=== PATIENT | female | born 2000 | race Caucasian/White ===

== ENCOUNTER 2022-02-26 07:00 | Emergency (ER) | payer MEDICAID, SELFPAY ==
[2022-02-26 07:20] VITALS: BP 109/70; PULSE 112; RESP 18; TEMP 36.8; O2SAT 99
[2022-02-26 07:29] VITALS: RESP 18; O2SAT 99
--- NOTE | 2022-02-26 07:35 | ED.GENADULT ---
HPI - General Adult General Time Seen by Provider: 07:35 Date Seen: 02/26/22 Chief complaint: Unspecified Complaint, Adult Stated complaint: Bodyaches,fever,right breast pain Time Seen by Provider: 02/26/22 07:20 Source: patient Mode of arrival: ambulatory Limitations: no limitations History of Present Illness HPI narrative: 21-year-old female who comes in today with fever, chills, body aches, and right breast tenderness and pain. This started last night. She took Tylenol about 8 hours ago. No recorded fever at home. Denies cough, does have nausea and some diarrhea, no abdominal pain, no urinary symptoms. She is currently but only at night. She has had mastitis before. Related Data Previous Rx's Medication Instructions Recorded clindamycin HCl 300 mg capsule 300 mg PO TID #21 caps 02/26/22 Allergies Allergy/AdvReac Type Severity Reaction Status Date / Time No Known Drug Allergies Allergy Verified 02/26/22 07:26 Review of Systems Status of ROS: Reports: 10 or more systems reviewed and unremarkable except as noted in History and below PFSH PFS Social History Smoking Status: Never smoker Non-prescribed substance use: denies use service: No Exam Const: Vital Signs, click to edit/add: Vital Signs - 24 hr 02/26/22 07:20 02/26/22 07:29 Temperature 98.2 F Pulse Rate [Right Pulse Oximeter] 112 H Respiratory Rate 18 Respiratory Rate [ Right Breast] 18 Blood Pressure [Le ft Upper Arm] 109/70 Pulse Oximetry 99 Oxygen Delivery Me thod Room Air Documenting provider has reviewed patient's vital signs: yes Common normals: no apparent distress, oriented x3, alert and well nourished HENMT: Common normals: normocephalic, head/scalp atraumatic, external ears normal and external nose normal Head and scalp: normocephalic and atraumatic Nose: external nose normal External ear: external ears normal Eye: Common normals: PERRL and conjunctivae normal Conjunctiva: conjunctiva(e) normal Pupil: PERRL Neck & C-Spine: Common normals: full ROM, no lymphadenopathy and supple Chest: Other: Redness, tenderness, induration and warmth of the superior right breast adjacent to the areola. No palpable fluid collection. Resp: Common normals: normal respiratory effort and clear to auscultation bilaterally Auscultation: clear to auscultation bilaterally Cardio: Common normals: regular rate, regular rhythm and no murmurs Rate: regular rate Rhythm: regular rhythm GI: Common normals: Normal to inspection, nondistended, normoactive bowel sounds present, soft to palpation and non-tender Palpation: soft : Common normals: no CVA tenderness Bladder/kidney exam: no CVA tenderness Back & Pelvis: Common normals: no CVA tenderness and thoracic and lumbar spine normal to inspection Extremity: Common normals: normal to inspection, full ROM and no pedal edema Neuro: Common normals: oriented x3, CN's II-XII intact bilaterally and no focal motor deficits Sensorium/orientation: alert Psych: Common normals: mental status grossly normal Skin: Common normals: no rashes or lesions noted General skin exam: no rashes or lesions noted Course Course Hospital Course: Patient seen and examined, prior records are reviewed. Patient presents with chills, body aches, nausea and right breast tenderness. On exam, there is redness, tenderness, warmth of the right breast consistent with mastitis. Bedside ultrasound performed and no fluid collection is seen, there is no palpable fluid collection or central mass on exam. Patient will be given vancomycin, fluids, and Toradol in the emergency department and discharged with clindamycin. Vital Signs Vital signs: Initial Vital Signs Temperature 98.2 F 02/26/22 07:20 Temperature Source Temporal Artery Scan 02/26/22 07:20 Pulse Rate 112 H 02/26/22 07:20 Pulse Rhythm 02/26/22 07:20 Respiratory Rate 18 02/26/22 07:20 Blood Pressure 109/70 02/26/22 07:20 Blood Pressure Mean 83 02/26/22 07:20 Blood Pressure Position Semi-Fowlers 02/26/22 07:20 Pulse Oximetry 99 02/26/22 07:20 Oxygen Delivery Method 02/26/22 07:20 Vital Signs Temperature 98.2 F 02/26/22 07:20 Pulse Rate 112 H 02/26/22 07:20 Respiratory Rate 18 02/26/22 07:20 Blood Pressure 109/70 02/26/22 07:20 Pulse Oximetry 99 02/26/22 07:20 Oxygen Delivery Method 02/26/22 07:20 Temperature 98.2 F 02/26/22 07:20 Pulse Rate 112 H 02/26/22 07:20 Respiratory Rate 18 02/26/22 07:29 Blood Pressure 109/70 02/26/22 07:20 Pulse Oximetry 99 02/26/22 07:20 Oxygen Delivery Method 02/26/22 07:20 Medical Decision Making Medical Records Medical records reviewed: Yes I reviewed the patient's medical records Lab Data Lab results reviewed: Yes I reviewed the patient's lab results Discharge Plan Discharge Clinical Impression: Mastitis Patient Disposition: Home, Self-Care Condition: Stable Instructions: Mastitis (ED) Additional Instructions: Continue , consider pumping during the day between breast feeds as well. Take antibiotics as prescribed, these are safe for . Take Tylenol and ibuprofen as needed for fever, chills, body ache. Make sure your getting plenty of fluids. Follow-up with your primary care doctor next week Prescriptions: New clindamycin HCl 300 mg capsule 300 mg PO TID Qty: 21 0RF Stand Alone Forms: [employer] Info Instructions
[2022-02-26] MEDS: KETOROLAC 15 MG/ML inj IVP (08:02)
[2022-02-26] MEDS: 0.9 % SODIUM CHLORIDE 1000 ml 1,000 ML IV (08:03)
[2022-02-26 08:29] VITALS: BP 99/63; PULSE 110; RESP 22; O2SAT 99
--- NOTE | 2022-02-26 08:45 | PC.NURSE ---
pt [facility], c/o itching of scalp, no observable redness anywhere, pt asking to talk to , Dr Nelson to room now, order for po benadryl 25mg given, pt refuses at this time and wants to wait, she is instructed to let us know if she would like to take this
[2022-02-26] MEDS: diphenhydrAMINE 25 MG CAPSULE PO (09:15)
--- NOTE | 2022-02-26 09:38 | ED.NURSE ---
vanco stopped at 915, pt unable to tolerate itchy scalp and c/o neck and head swelling, no swelling noted by staff. benadryl already given. dr. davey in to see pt. pt very anxious. sl dc'd intact. ice pack given for feeling of swelling. will continue to monitor pt until she feels comfortable dc'ing.
--- NOTE | 2022-02-26 14:07 | ED.NURSE ---
Entered chart to answer question regarding start date of first dose of antibiotic.
== END 2022-02-26 09:50 | disposition home or self-care (01) ==
LOC: ED 07:49
PROVIDERS: Emergency Provider Family Medicine
DX: N61.0 Mastitis without abscess (principal)
CPT/HCPCS: 96365; 96366; 96375; 99283; 99284; A9270; J1885; J3370; J7030; J7120

== ENCOUNTER 2022-04-27 23:47 | Emergency (ER) | payer MEDICAID, SELFPAY ==
[2022-04-28 00:01] VITALS: BP 130/74; PULSE 95; RESP 18; TEMP 37.7; O2SAT 99
[2022-04-28 00:02] VITALS: BP 130/74; PULSE 99; RESP 18; TEMP 37.7; O2SAT 99; BMI 26.6
[2022-04-28 00:15] VITALS: O2SAT 99
[2022-04-28] MEDS: 0.9 % SODIUM CHLORIDE 1000 ml 1,000 ML IV (00:40)
[2022-04-28 00:47] LABS: Lactate* 0.7 mmol/L (0.5-1.9)
[2022-04-28 00:48] LABS: Basophils Absolute Auto 0.02 K/uL (0.00-0.30); Basophils Percent Auto 0.4 % (0.0-3.0); Eosinophils Absolute Auto 0.17 K/uL (0.00-0.50); Eosinophils Percent Auto 3.6 % (0.0-7.0); Hematocrit 33.8 % (33.0-51.0); Hemoglobin* 11.3 gm/dL (12.0-16.0); Lymphocytes Absolute Auto 1.97 K/uL (0.90-2.90); Lymphocytes Percent Auto 42.1 % (20-44); Mean Corpuscular HGB Conc 33 gm/dL (32-36); Mean Corpuscular Hemoglobin 27 pg (26-34); Mean Corpuscular Volume 80 fL (80-100); Monocytes Percent Auto 10.3 % (0.0-11.0); Neutrophils Absolute Auto 2.04 K/uL (1.7-7.0); Neutrophils Percent Auto 43.6 % (42.0-72.0); Platelet Count* 201 K/uL (140-440); RDW Coefficient of Variation % 12.7 % (11.5-15.5); Red Blood Count 4.21 m/uL (4.00-5.20); White Blood Count* 4.68 K/uL (4.50-11.00)
[2022-04-28 00:50] VITALS: BP 124/77; PULSE 84; RESP 18; O2SAT 99
[2022-04-28 00:51] LABS: Slide Review Reflex No
[2022-04-28 01:05] LABS: Chloride* 103 mmol/L (96-114); Sodium* 136 mmol/L (135-149)
--- OUTSIDE RECORDS SUMMARY | 2022-04-28 01:05 | XMS_ITS | Clinical Summary ---
:2000 Author Organization [facility] Address [address] [place] [address] Care Team Providers Name Role Phone Lita Oseguera Unavailable Unavailable Marija Edgar APRN STRATEGY LEAD Primary Care Provider [phone] Marija Edgar APRN STRATEGY LEAD Unavailable Keisha Dotson MD Unavailable Diana Desir [facility] Unavailable Rain Galaviz PA-C Unavailable [phone] Tavia Wyatt MD Unavailable Unavailable Erica Farrell APRN [facility] Unavailable [phone] Tavia Wyatt MD Unavailable Unavailable Rich Barrett MD Unavailable [phone] Neil Kent MD Unavailable Roney StoryM Unavailable Erica Farrell APRN STRATEGY LEAD Unavailable + Diana Desir [facility] Unavailable Allergies Active Allergy Reactions Severity Noted Date Comments Vancomycin 04/26/2022 Medications Medication Sig Dispensed Refills Start Date End Date Status Vit-Fe Take 1 tablet by 90 tablet 3 06/04/2020 Active Fumarate-FA ( mouth daily MULTIVITAMIN W/IRON) 27-0.8 MG tablet augmented Apply up to twice 150 g 11 08/11/2021 A ctive betamethasone daily as needed dipropionate for psoriasis on (DIPROLENE-AF) 0.05 % thicker areas of external skin. ointmentIndications: Psoriasis fluocinonide (LIDEX) Apply small 60 mL 11 08/11/2021 Active 0.05 % external amount to solutionIndications: psoriasis on the Psoriasis scalp. tacrolimus (PROTOPIC) Apply thin layer 60 g 11 08/11/2021 Active 0.1 % external to psoriasis on ointmentIndications: thinner skin up Psoriasis to twice daily as needed. omeprazole (PRILOSEC) Take 1 capsule 90 capsule 3 09/02/[address] (40 mg) by mouth capsuleIndications: daily Epigastric pain benzonatate (TESSALON) Take 1 capsule 30 capsule 0 10/30/2021 Active 100 MG (100 mg) by mouth capsuleIndications: 3 times daily as Viral URI with cough needed for cough Additional Information Patient not taking. Reported on 02/24/2022 levETIRAcetam (KEPPRA) 500 MG Take 1 tablet (500 90 tablet 3 0 12/03/2021 Active tabletIndications: Convulsions, mg) by mouth daily unspecified convulsion type (H) PARoxetine (PAXIL) 40 MG Take 1 tablet (40 mg) 90 tablet 1 Active tabletIndications: Anxiety by mouth At Bedtime LORazepam (ATIVAN) 0.5 MG Take 1 tablet (0.5 30 tablet 0 01/14 Active tabletIndications: Anxiety mg) by mouth daily as needed for anxiety Active Problems Patient Care Coordination Note Formatting of this note is different fro m the original. EMERGENCY CARE PLAN At each Emergency Department visit, we w ill evaluate this patient to determine if an emergency medical condition is present. Brief History of Condition: Kim Clark has a history of seizures, SVT, depression and anxiety who often presents to the Emergency Department due to chest pain, palpitations, shortness of breath and SV T episodes. As of Fall 2020, she is on a half tab of metoprolol 25mg, as she has had dizziness and low blood pressure with a full tab historically. She has met with Dr. Burrell with [facility] Cardiology and has declined elective ablation in the past. Summary of Care: Palpitations, Shortness of breath, Chest Pain: Ms. Clark often present with vague chest pain complaints and palpitations. Extensive ED work ups have been performed in the past. Outpatient Holter monito rs and cardiology visits have determined that SVT is the most likely etiology of these ongoing symptoms. ED care plan: 1. Chronic Chest Pain & Palpitations: Th e patient has undergone multiple negative ED workups. a. Goal is to reduce CT imaging necessit y to prevent unnecessary radiation exposure. Recommend using PERC score to obviate need for D-Dimer and/or CT. 2. Advanced Imaging Utilization: Frequen t radiographic imaging represents a significant health risk to the patient. Recommend imaging only if acute exam findings, significant laboratory abnormality, or significant concern for new or acute finding. 3. Frequent ED Visits: Encourage follow up with PMD and/or Cardiology. If available in ED consider consultation with ED Db2 Developer. Relevant Medical History (at time Care P fabrizio initiated): Seizures (on 500mg Keppra daily), SVT (on 12.5mg metoprolol daily), Anxiety and Depression Past imaging: CT: 3 in the 12 months prior to initiati on of care plan. MRI: 0 in the 12 months prior to initiat ion of care plan. ED Ultrasound: 8 in the 12 months prior to initiation of care plan. Total [facility] ED visits in 12 months prior to initiation of Care Plan: 11 Total [facility] Hospital Admissions in 12 mon ths prior to initiation of Care Plan: 0 (she has technically had 2 admissions due to related issues with OBGYN) Expected home rescue plan: Metoprolol 12 .5mg PRN PCP: ARLENE Kuhn CNP [facility] edicine - [facility] Specialists: Dr. Zachary Burrell - Cardiology - [facility] Dee Dotson - Neurology - [facility] Epilepsy Care Care Coordination: Has worked with [facility] Worker in past - ARACELIS Parker, Clinical Care Coordination - [facility] ([place], [place] and [place]) - Follow up plan after an ED visit: ARLENE Kuhn CNP 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 Term 01/13/2021 Encounter for triage in patient 12/09/2020 KALYN (generalized anxiety disorder) 09/29/2020 Asthma 06/04/2020 Right ureteral stone 05/27/2020 Overview: Added automatically from request for lebron castellanos [id number] Left ureteral stone 05/27/2020 Overview: Added automatically from request for lebron emanuel [id number] Head ache 02/18/2020 Seizure 05/02/2019 Depressed 05/02/2019 Anxiety 05/02/2019 Tobacco abuse counseling 05/02/2019 Psoriasis 05/02/2019 Encounters Date Type Specialty Care Team Description 04/27/2022 Telephone Family Practice Marija Edgar APRN STRATEGY LEAD 04/26/2022 Emergency EMERGENCY MEDICINE Sanford Dixon n onintractable headache, unspecified headache type; MD Adam Febrile illness Fabián Chen MD 04/26/2022 Travel 04/16/2022 Telephone Cardiology Livan Sharif MD Results (Zio patch monitor ) 04/08/2022 [facility] Cardiology Zcahary Burrell MD Encounter 04/08/2022 Travel 04/05/2022 Hospital Cardiology Zachary Burrell MD SVT (supraven tricular Encounter tachycardia) (H ) 03/26/2022 Hospital Cardiology Zachary Burrell MD Paroxysmal lazo praventricular tachycardia (H); Encounter Palpitations 03/26/2022 [facility] Cardiology Zachary Burrell MD Paroxysmal Encounter supraventricula r tachycardia (H) 03/26/2022 Travel 03/19/2022 PRE VISIT ENT Bassem Vera MD 03/17/2022 Telephone ENT Bassem Vera MD 03/12/2022 Office Visit Podiatry Roney Story of [place], DPM left foot, medi al edge (Primary Dx) 03/12/2022 Travel 03/09/2022 Virtual Visit Pharm Diana Eckert Anxiety ([facility] Dx); T, RPH Moderate major depression (H) 03/08/2022 Travel 02/24/2022 Office Visit Urgent Care Marcelo Ramirez Person under investigation for COVID-19 (Primary Dx); Livan Springer PA-C Chest tight ness 02/24/2022 Telephone Cardiology Zachary Burrell MD Symptoms (Hea rt feels weird) 02/24/2022 Travel 02/02/2022 Virtual Visit Pharm Diana Eckert Anxiety ([facility] Dx); T, RPH Moderate major depression (H) from Last 3 Months Immunizations Name Administration Dates Next Due DTAP (<7y) 11/23/2004, 2000, 2000, 2000 FLU 6-35 months 07/14/2012, 05/25/2011, 05/13/2010 Flu, Unspecified 05/26/2009, 06/21/2007, 07/22/2003, 06/03/2003 HPV Quadrivalent 03/01/2012, 10/27/2011, 08/10/2011 Hep B, Peds or Adolescent 08/07/2001, 03/28/2001, 2000 Hepatitis A Vac Ped/Adol-3 Dose 03/01/2012, 08/10/2011 Hib (PRP-T) 2000, 2000, 2000 Influenza (H1N1) 06/06/2009 Influenza Vaccine IM > 6 months Valent 04/02/2021, 0, 05/02/2019, IIV4 (Alfuria,Fluzone) 05/16/2017, 04/12/2016, 08/12/2014 Influenza Vaccine IM Ages 6-35 Months 04/24/2013 4 Valent (PF) MMR 01/15/2021, 11/23/2004, 08/07/2001 Meningococcal (Menactra??) 08/10/2011 Meningococcal (Menveo??) 05/16/2017 Pneumococcal (PCV 7) 2000, 2000, 2000 Pneumococcal 23 valent 09/22/2021 Poliovirus, inactivated (IPV) 11/23/2004, 03/28/2001, 2000, 2000 TDAP Vaccine (Adacel) 11/11/2020, 08/10/2011 TRIHIBIT (DTAP/HIB, <7y) 08/07/2001 Varicella 03/05/2013, 10/17/2001 Family History Medical History Relation Comments Heart Disease Maternal Grandfather Brain Tumor Sister Relation Status Comments Maternal Grandfather Alive Sister Alive Social History Tobacco Use Types Packs/Day Years Used Date Smoking Tobacco: Former Cigarettes 1 Quit : 12/07/2019 Other Smokeless Tobacco: Never Tobacco Cessation: Counseling Given: Yes Alcohol Use Standard Drinks/Week Comments Not Currently 0 (1 standard drink = 0.6 oz pure alcoho l) Alcohol Habits Answer Date Recorded How often do you have a drink containing alcohol? Never 09/22/2021 How many drinks containing alcohol do you have on a Patient refused 09/22/2021 typical day when you are drinking? How often do you have six or more drinks on one Never 09/22/2021 occasion? Social Isolation Answer Date Recorded In a typical week, how many times do you talk on the Twice a week 09/22/2021 phone with family, friends, or neighbors? How often do you get together with friends or relatives? Twi ce a week 09/22/2021 How often do you attend protestant or quaker services? Never 09/22/2021 Do you belong to any clubs or organizations such as No 09/22/2021 protestant groups, unions, fraternal or athletic groups, or school groups? How often do you attend meetings of the clubs or Never 08/07/2020 organizations you belong to? Are you now , , , , never Nev er 09/22/2021 or living with a partner? Physical Activity Answer Date Recorded On average, how many days per week do you engage in moderate to 1 day 09/22/2021 strenuous exercise (like walking fast, running, jogging, dancing, swimming, biking, or other activities that cause a light or heavy sweat)? On average, how many minutes do you engage in exercise at th is 10 min 09/22/2021 level? Stress Answer Date Recorded Do you feel stress - tense, restless, nervous, or To some ex tent 09/22/2021 anxious, or unable to sleep at night because your mind is troubled all the time - these days? Financial Resource Strain Answer Date Recorded How hard is it for you to pay for the very basics like Not jessica balderas hard 09/22/2021 food, housing, medical care, and heating? Intimate Partner Violence Answer Date Recorded Within the last year, have you been afraid of your partner o r No 08/11/2020 ex-partner? Within the last year, have you been humiliated or emotionall y No 08/11/2020 abused in other ways by your partner or ex-partner? Within the last year, have you been kicked, hit, slapped, or No 08/11/2020 otherwise physically hurt by your partner or ex-partner? Within the last year, have you been raped or forced to have any No 08/11/2020 kind of sexual activity by your partner or ex-partner? Food Insecurity Answer Date Recorded Within the past 12 months, you worried that your food would Never true 09/22/2021 run out before you got money to buy more. Within the past 12 months, the food you bought just didn't N ever true 09/22/2021 last and you didn't have money to get more. Transportation Needs Answer Date Recorded In the past 12 months, has lack of transportation kept you f rom No 09/22/2021 medical appointments or from getting medications? In the past 12 months, has lack of transportation kept you f rom No 09/22/2021 meetings, work, or getting things needed for daily living? Housing Stability Answer Date Recorded In the last 12 months, was there a time when you were not ab le No 09/22/2021 to pay the mortgage or rent on time? In the last 12 months, how many places have you lived? 1 09/22/2021 In the last 12 months, was there a time when you did not hav e a No 09/22/[address] sleep or slept in a halfway (including now)? Education Answer Date Recorded What is the highest level of school you have completed or 12 th grade 08/07/2020 the highest degree you have received? Sex Assigned at Date Recorded Female 03/02/2021 5:45 PM CDT COVID-19 Exposure Response Date Recorded In the last 10 days, have you been in contact with No / Unsu re 04/26/2022 3:26 AM CDT someone who was confirmed or suspected to have Coronavirus/COVID-19? Last Filed Vital Signs Vital Sign Reading Time Taken Comments Blood Pressure 117/73 04/26/2022 8:20 AM CDT Pulse 75 04/26/2022 8:20 AM CDT Temperature 37.6 ??C (99.6 ??F) 04/26/2022 5:20 AM CDT Respiratory Rate 16 04/26/2022 3:29 AM CDT Oxygen Saturation 100% 04/26/2022 8:20 AM CDT Inhaled Oxygen Concentration - - Weight 74.8 kg (165 lb) 04/26/2022 3:29 AM CDT Height 167.6 cm (5' 6) 04/26/2022 3:29 AM CDT Body Mass Index 26.63 04/26/2022 3:29 AM CDT Plan of Treatment Upcoming Encounters Date Type Specialty Care Team Description 04/28/2022 Office Visit Family Practice Anthony Doe PA-C [address] [place], [place] [phone] (Wo rk) 05/03/2022 Office Visit Dermatology Neil Kent M D [address] [place], [place] [phone] (Wo rk) 05/05/2022 Office Visit Optometry Yeny David, OD [address] [place] [id number] (Wo rk) 05/11/2022 Virtual Visit Pharm D Diana Desir , [facility] [address] [place] [address] (Wo rk) 05/14/2022 Office Visit Cardiology Livan Sharif MD [address] [facility] [address] [place], [place] [phone] (Wo rk) 05/31/2022 Office Visit Family Practice Valery Veronica PA-C [address] [place] [address] (Wo rk) Health Maintenance Due Date Last Done Comments ADVANCE CARE PLANNING 2000 COVID-19 Vaccine (#1) 2000 ASTHMA ACTION PLAN 06/24/2021 06/24/2020, 06/24/2020 ASTHMA CONTROL TEST 11/29/2021 06/01/2021, 06/24/2020 INFLUENZA VACCINE (#1) 2022 04/02/2021, 03/27/2020, 05/02/2019, Additional history exists PHQ-9 06/19/2022 12/18/2021, 12/18/2021, 04/02/2021, Additional history exists ANNUAL REVIEW OF HM ORDERS 09/22/2022 09/22/2021, CHLAMYDIA SCREENING 09/22/2022 09/22/2021 Pneumococcal Vaccine: Pediatrics 09/22/2022 09/22/2021, , (0 to 5 Years) and At-Risk 2000, Additiona l history Patients (6 to 64 Years) (2 - PCV) exists YEARLY PREVENTIVE VISIT 09/22/2022 09/22/2021, 06/24/2020, 05/02/2019 PAP 09/22/2024 09/22/2021 DTAP/TDAP/TD IMMUNIZATION (5 - Td 11/11/2030 11/11/2020, , or Tdap) 11/23/2004, Additional history exists HEPATITIS B IMMUNIZATION Completed 08/07/2001, 03/28/2001, 2000 IPV IMMUNIZATION Completed 11/23/2004, 03/28/2001, 2000, Additional history exists HPV IMMUNIZATION Completed 03/01/2012, 10/27/2011, 08/10/2011 MENINGITIS IMMUNIZATION Completed 05/16/2017, 08/10/2011 HEPATITIS C SCREENING Completed 11/05/2019 HIV SCREENING Completed 06/17/2020, 11/05/2019 DEPRESSION ACTION PLAN Completed 04/17/2021, 04/17/2021 Procedures Procedure Name Priority Date/Time Associated Diagnosis Comme nts CTA HEAD NECK W STAT 04/26/2022 8:17 Results f or this CONTRAST AM CDT procedure are i n the results section. CT HEAD W/O CONTRAST STAT 04/26/2022 8:17 Resu lts for this AM CDT procedure are i n the results section. BLOOD CULTURE STAT 04/26/2022 5:15 AM CDT BLOOD CULTURE STAT 04/26/2022 4:33 AM CDT ROUTINE UA WITH STAT 04/26/2022 4:33 Results f or this MICROSCOPIC REFLEX TO AM CDT proced ure are in CULTURE the results section. INFLUENZA A/B & STAT 04/26/2022 4:33 Results f or this SARS-COV2 PCR AM CDT procedure are in MULTIPLEX the results section. ISTAT GASES LACTATE STAT 04/26/2022 4:21 Resul ts for this VENOUS POCT AM CDT procedure are i n the results section. EKG 12-LEAD, TRACING STAT 04/26/2022 3:44 Resu lts for this ONLY AM CDT procedure are i n the results section. EXTRA PURPLE TOP TUBE STAT 04/26/2022 3:31 Res ults for this AM CDT procedure are i n the results section. EXTRA GREEN TOP STAT 04/26/2022 3:31 Results f or this (LITHIUM HEPARIN) AM CDT procedure are in TUBE the results section. EXTRA BLUE TOP TUBE STAT 04/26/2022 3:31 Resul ts for this AM CDT procedure are i n the results section. EXTRA TUBE STAT 04/26/2022 3:31 Results for this AM CDT procedure are i n the results section. HCG QUALITATIVE STAT 04/26/2022 3:31 Results f or this AM CDT procedure are i n the results section. BASIC METABOLIC PANEL STAT 04/26/2022 3:31 Res ults for this AM CDT procedure are i n the results section. CBC WITH PLATELETS STAT 04/26/2022 3:31 Result s for this AM CDT procedure are i n the results section. LEADLESS METAL BONDER Routine 04/05/2022 10:38 SVT (supraventri cular APPLICATION AND AM CDT tachycardia) (H) INTERPRETATION 3 TO 7 DAY LEADLESS METAL BONDER Routine 03/26/2022 8:12 Paroxysmal APPLICATION AND AM CDT supraventricular INTERP 8 TO 14 DAYS tachycardia (H) Palpitations ECHO COMPLETE Routine 03/26/2022 8:02 Paroxysmal Results for this AM CDT supraventricular procedure a re in tachycardia (H) the results section. IN REMOVAL OF NAIL Routine 03/12/2022 11:14 Ingrowing toenail of PLATE SIMPLE SINGLE AM CDT left foot, medial edg e CBC WITH PLATELETS & Routine 02/24/2022 3:50 Chest tightness R esults for this DIFFERENTIAL PM CDT procedure are i n the results section. COVID-19 VIRUS Routine 02/24/2022 3:50 Chest tightness Results for this (CORONAVIRUS) BY PCR PM CDT procedu re are in the results section. CBC WITH PLATELETS Routine 02/24/2022 3:50 Chest tightness Res ults for this AND DIFFERENTIAL PM CDT procedure a re in the results section. TROPONIN I Routine 02/24/2022 3:50 Chest tightness Results f or this PM CDT procedure are i n the results section. BASIC METABOLIC PANEL Routine 02/24/2022 3:50 Chest tightness Results for this PM CDT procedure are i n the results section. D DIMER QUANTITATIVE Routine 02/24/2022 3:50 Chest tightness R esults for this PM CDT procedure are i n the results section. EKG 12-LEAD COMPLETE Routine 02/24/2022 Chest tightness Resu lts for this W/READ - CLINICS procedure a re in the results section. EKG 12-LEAD COMPLETE Routine 02/24/2022 Chest tightness Resu lts for this W/READ - CLINICS procedure a re in the results section. from Last 3 Months Results CTA Head Neck with Contrast (04/26/2022 8:17 AM CDT) Anatomical Region Laterality Modality Head, SUBRAD CT NEURO, SUBRAD CT NEURO, UMP CT NEURO, Computed Tomography RAD CT Specimen (Source) Anatomical Location Collection Method / Collectio n Time Received Time / Laterality Volume Impressions 04/26/2022 11:17 AM CDT IMPRESSION: Patent arteries in the head and neck without vascular cutoff. No evidence of dissection. No an eurysm identified. No significant stenosis. KENYA HERNANDEZ MD SYSTEM ID: ??[id number] Narrative 04/26/2022 11:[address] ANGIOGRAM OF THE HEAD AND NECK WITH CONTRAST April 26, 2022 8:17 AM HISTORY: Sudden onset headache, neck jaquan n. TECHNIQUE: CT angiography with an inject ion of 75mL [id number]-370 IV with scans through the head and neck. Images were transferred to a separate 3-D workstation where multiplanar reform ations and 3-D images were created. Estimates of carotid stenoses a re made relative to the distal internal carotid artery diameters except as noted. Radiation dose for this scan was reduced using automated ex posure control, adjustment of the mA and/or kV according to patient si ze, or iterative reconstruction technique. ?? COMPARISON: None. CT HEAD FINDINGS: No contrast enhancing lesions. Cerebral blood flow is grossly normal. CT ANGIOGRAM HEAD FINDINGS: The major in tracranial arteries including the proximal branches of the anterior ce rebral, middle cerebral, and posterior cerebral arteries appear paten t without vascular cutoff. No aneurysm identified. No significant sten osis. Venous circulation is unremarkable. CT ANGIOGRAM NECK FINDINGS: Normal origi n of the great vessels from the aortic arch. Right carotid artery: The right common a nd internal carotid arteries are patent. No significant stenosis or a therosclerotic disease in the carotid artery. Left carotid artery: The left common and internal carotid arteries are patent. No significant stenosis or ather osclerotic disease in the carotid artery. Vertebral arteries: Vertebral arteries a re patent without evidence of dissection. No significant stenosis. Other findings: Sclerotic lesion in the right aspect of the C4 vertebral body most likely represents a bone island. Procedure Note Kenya Hernandez MD - 04/26/2022 CT ANGIOGRAM OF THE HEAD AND NECK WITH Romana NEWSOME April 26, 2022 8:17 AM HISTORY: Sudden onset headache, neck jaquan n. TECHNIQUE: CT angiography with an inject ion of 75mL Isovue-370 IV with scans through the head and neck. Images were transferred to a separate 3-D workstation where multiplanar reform ations and 3-D images were created. Estimates of carotid stenoses a re made relative to the distal internal carotid artery diameters except as noted. Radiation dose for this scan was reduced using automated ex posure control, adjustment of the mA and/or kV according to patient si ze, or iterative reconstruction technique. COMPARISON: None. CT HEAD FINDINGS: No contrast enhancing lesions. Cerebral blood flow is grossly normal. CT ANGIOGRAM HEAD FINDINGS: The major in tracranial arteries including the proximal branches of the anterior ce rebral, middle cerebral, and posterior cerebral arteries appear paten t without vascular cutoff. No aneurysm identified. No significant sten osis. Venous circulation is unremarkable. CT ANGIOGRAM NECK FINDINGS: Normal origi n of the great vessels from the aortic arch. Right carotid artery: The right common a nd internal carotid arteries are patent. No significant stenosis or a therosclerotic disease in the carotid artery. Left carotid artery: The left common and internal carotid arteries are patent. No significant stenosis or ather osclerotic disease in the carotid artery. Vertebral arteries: Vertebral arteries a re patent without evidence of dissection. No significant stenosis. Other findings: Sclerotic lesion in the right aspect of the C4 vertebral body most likely represents a bone island. IMPRESSION: Patent arteries in the head and neck without vascular cutoff. No evidence of dissection. No an eurysm identified. No significant stenosis. KENYA HERNANDEZ MD SYSTEM ID: [id number] Sanford Dixon MD IMG CT ORDERABLES Head CT w/o contrast (04/26/2022 8:17 AM CDT) Anatomical Region Laterality Modality Head, SUBRAD CT NEURO, SUBRAD CT NEURO, P CT NEURO, Computed Tomography RAD CT Specimen (Source) Anatomical Location Collection Method / Collectio n Time Received Time / Laterality Volume Impressions 04/26/2022 9:28 AM CDT IMPRESSION: No evidence of acute intracranial hemorrhage, mass, or herniation. KENYA HERNANDEZ MD SYSTEM ID: ??[id number] Narrative 04/26/2022 9:[address] SCAN OF THE HEAD WITHOUT CONTRAST ??April 26, 2022 8:17 AM HISTORY: Sudden onset headache. TECHNIQUE: Axial images of the head and coronal reformations without IV contrast material. Radiation dose for this scan was reduced using automated exposure control, adjustment o f the mA and/or kV according to patient size, or iterative reconstruc tion technique. COMPARISON: Head CT 05/11/2018. FINDINGS: There is no evidence of intrac ranial hemorrhage, mass, acute infarct or anomaly. The ventricles are n ormal in size, shape and configuration. The brain parenchyma and subarachnoid spaces are normal. The visualized portions of the sinuses a nd mastoids appear normal. The bony calvarium and bones of the skull ba se appear intact. Procedure Note Kenya Hernandez MD - 04/26/2022 CT SCAN OF THE HEAD WITHOUT CONTRAST Oct kiran 2021 8:17 AM HISTORY: Sudden onset headache. TECHNIQUE: Axial images of the head and coronal reformations without IV contrast material. Radiation dose for this scan was reduced using automated exposure control, adjustment o f the mA and/or kV according to patient size, or iterative reconstruc tion technique. COMPARISON: Head CT 05/11/2018. FINDINGS: There is no evidence of intrac ranial hemorrhage, mass, acute infarct or anomaly. The ventricles are n ormal in size, shape and configuration. The brain parenchyma and subarachnoid spaces are normal. The visualized portions of the sinuses a nd mastoids appear normal. The bony calvarium and bones of the skull ba se appear intact. IMPRESSION: No evidence of acute intracr anial hemorrhage, mass, or herniation. KENYA HERNANDEZ MD SYSTEM ID: [id number] Sanford Dixon MD IMG CT ORDERABLES Symptomatic; Yes; 04/25/2022 Influenza A/B & SARS-CoV2 (COVID-19) Virus PCR Multiplex Nasopharyngeal (04/26/2022 4:33 AM CDT) Analysis Performed At Patho logist Time Signature Influenza A Negative Negative 04/26/2022 LABORATORY PCR 6:47 AM CDT Influenza B Negative Negative 04/26/2022 LABORATORY PCR 6:47 AM CDT RSV PCR Negative Negative 04/26/2022 LABORATORY 6:47 AM CDT SARS CoV2 PCR Negative Negative 04/26/2022 LABORATORY 6:47 AM CDT Comment: NEGATIVE: SARS-CoV-2 (COVID-19) RNA not detected, presumed negative. Specimen Anatomical Location / Collection Method Collection [place] e Received Time (Source) Laterality / Volume Swab NASOPHARYNGEAL Non-blood 04/26/2022 4:33 04/26/2022 4:58 STRUCTURE / Unknown Collection / AM CDT AM CDT Unknown Narrative LABORATORY - 04/26/2022 6:47 AM CDT Testing was performed using the Xpert Xp ress CoV2/Flu/RSV Assay on the [employer] GeneXpert Instrument. This test should b e ordered for the detection of SARS-CoV-2 and influenza viruses in individuals who fidel t clinical and/or epidemiological criteria. Test performance is unknown in asymptoma tic patients. This test is for in vitro diagnostic use under the FDA EUA for lab oratories certified under CLIA to perform high or moderate complexity testing. Thi s test has not been FDA cleared or approved. A negative result does not rule out the presence of PCR inhibitors in the specimen or target RNA in concentration below the li shoshana of detection for the assay. If only one viral target is positive but coinfection with multiple targets is suspected, the sample should be re-tested with another FDA cleared, approved, or authorized test, if coinfection would change clinical manage ment. This test was validated by the [facility]. These laboratorie s are certified under the Clinical Laboratory Improvement Amendments of 1988 (CLIA-88) as qualified to perform high complexity laboratory testing. Sanford Dixon MD LAB - MICRO GENERAL ORDERABL ES Performing Organization Address City/State/ZIP Code Ph[place] [address] [facility] Lab [address] [facility] Lab (1st floor, no room number) (ABNORMAL) UA with Microscopic reflex to Culture (04/26/2022 4:33 AM CDT) [facility] gist Method Time Signature Color Urine Light Colorless, 04/26/2022 LABORATORY Yellow Straw, 5:14 AM CDT Light Yellow, Yellow Appearance Urine Clear Clear 04/26/2022 LABORATOR Y 5:14 AM CDT Glucose Urine Negative Negative 04/26/2022 LABORATORY mg/dL 5:14 AM CDT Bilirubin Urine Negative Negative 04/26/2022 LABORATORY 5:14 AM CDT Ketones Urine Negative Negative 04/26/2022 LABORATORY mg/dL 5:14 AM CDT Specific [place] 1.023 1.003 - 04/26/2022 LABORATOR Y Urine 1.035 5:14 AM CDT Blood Urine Negative Negative 04/26/2022 LABORATORY 5:14 AM CDT pH Urine 7.5 (H) 5.0 - 7.0 04/26/2022 LABORATORY 5:14 AM CDT Protein Albumin Negative Negative 04/26/2022 LABORATORY Urine mg/dL 5:14 AM CDT Urobilinogen Normal Normal, 2.0 04/26/2022 LABORATORY Urine mg/dL 5:14 AM CDT Nitrite Urine Negative Negative 04/26/2022 [facility] LABORATORY 5:14 AM CDT Leukocyte Negative Negative 04/26/2022 LABORATORY Esterase Urine 5:14 AM CDT Bacteria Urine Few (A) None Seen 04/26/2022 [facility] LABORATORY /HPF 5:14 AM CDT Mucus Urine Present (A) None Seen 04/26/2022 [facility] LABORATORY /LPF 5:14 AM CDT RBC Urine <1 <=2 /HPF 04/26/2022 [facility] LABORATORY 5:14 AM CDT WBC Urine <1 <=5 /HPF 04/26/2022 [facility] LABORATORY 5:14 AM CDT Squamous 4 (H) <=1 /HPF 04/26/2022 LABORATORY Epithelials 5:14 AM CDT Urine Specimen Anatomical Collection Method Collection Time Receive d Time (Source) Location / / Volume Laterality Urine MID-STREAM URINE Non-blood 04/26/2022 4:33 AM 04/26 4:58 SPECIMEN / Unknown Collection / CDT AM CDT Unknown Narrative [facility] LABORATORY - 04/26/2022 5:14 AM CDT Urine Culture not indicated Sanford Dixon MD LAB - URINE ORDERABLES Performing Organization Address City/State/ZIP Code [place] [address] Care Lab [address] Lab (1st floor, no room number) (ABNORMAL) iStat Gases (lactate) venous, POCT (04/26/2022 4:21 AM CDT) Analysis Performed At Patho logist Time Signature Lactic Acid POCT 0.7 <=2.0 04/26/2022 RH LABORATOR Y mmol/L 4:36 AM CDT POC Bicarbonate 25 21 - 28 04/26/2022 [facility] LABORATORY Venous POCT mmol/L 4:36 AM CDT POC O2 Sat, Venous 63 (L) 94 - 100 % 04/26/2022 LABORATORY POCT 4:36 AM CDT POC pCO2V Venous 40 40 - 50 mm 04/26/2022 LABORATORY POCT Hg 4:36 AM CDT POC pH Venous POCT 7.40 7.32 - 04/26/2022 [facility] LABORATORY 7.43 4:36 AM CDT POC pO2 Venous POCT 32 25 - 47 mm 04/26/2022 RH LABORATOR Y Hg 4:36 AM CDT POC Specimen Anatomical Collection Method Collection Time Receive d Time (Source) Location / / Volume Laterality Blood, venous BLOOD SPECIMEN / 04/26/2022 4:21 AM 04/10 4:36 Unknown CDT AM CDT Sanford Dixon MD LAB - BEAKER POCT Performing Organization Address City/[facility]/ZIP Code Phon [place] [address] Care Lab [address] Lab (1st floor, no room number) EKG 12-lead, tracing only (04/26/2022 3:44 AM CDT) Component Value Ref Range Test Analysis Performed Pathologis t Method Time At Signature Systolic Blood mmHg RADIOLOGY Pressure RESULTS Diastolic Blood mmHg RADIOLOGY Pressure RESULTS Ventricular Rate 126 BPM RADIOLOGY RESULTS Atrial Rate 126 BPM RADIOLOGY RESULTS IN Interval 166 ms RADIOLOGY RESULTS QRS Duration 82 ms RADIOLOGY RESULTS QT 286 ms RADIOLOGY RESULTS QTc 414 ms RADIOLOGY RESULTS P [place] 61 degrees RADIOLOGY RESULTS R AXIS 54 degrees RADIOLOGY RESULTS T [place] 43 degrees RADIOLOGY RESULTS Interpretation Sinus tachycardia RADIOLO GY ECG T wave abnormality, consider inferior ischemia RESULTS Abnormal ECG When compared with ECG of 18-SEP-2021 13:39, No significant change was found Confirmed by - EMERGENCY MAGDIEL Medina, PHYSICIAN ([id number]), publication editor KEYLA MERIDA ([id number]) on 04/26/2022 6:52:21 AM Specimen Anatomical Collection Method Collection Time Receive d Time (Source) Location / / Volume Laterality 04/26/2022 3:44 AM 6:52 CDT AM CDT Sanford Dixon MD ECG ORDERABLES Performing Organization Address City/State/ZIP Code Phon e Number RADIOLOGY RESULTS Extra Purple Top Tube (04/26/2022 3:31 AM CDT) P athologist Signature Hold Specimen JIC 04/26/2022 RH LABORATORY 4:47 AM CDT Specimen Anatomical Collection Method / Collection Time Recei chelsie Time (Source) Location / Volume Laterality Blood BLOOD SPECIMEN / Venipuncture / 04/26/2022 3:31 2021 3:42 Unknown Unknown AM CDT AM CDT Sanford Dixon MD LAB - BLOOD ORDERABLES Performing Organization Address City/[facility]/[place] [address] Care Lab [address] Lab (1st floor, no room number) Extra Green Top ([place] Heparin) Tube (04/26/2022 3:31 AM CDT) P athologist Signature Hold Specimen JI 04/26/2022 [facility] LABORATORY 4:47 AM CDT Specimen Anatomical Collection Method / Collection Time Recei chelsie Time (Source) Location / Volume Laterality Blood BLOOD SPECIMEN / Venipuncture / 04/26/2022 3:31 2021 3:41 Unknown Unknown AM CDT AM CDT Sanford Dixon MD LAB - BLOOD ORDERABLES Performing Organization Address City/[facility]/[place] [address] Care Lab [address] Lab (1st floor, no room number) Extra Blue Top Tube (04/26/2022 3:31 AM CDT) P athologist Signature Hold Specimen [facility] 04/26/2022 RH LABORATORY 4:47 AM CDT Specimen Anatomical Collection Method / Collection Time Recei chelsie Time (Source) Location / Volume Laterality Blood BLOOD SPECIMEN / Venipuncture / 04/26/2022 3:31 2021 3:41 Unknown Unknown AM CDT AM CDT Sanford Dixon MD LAB - BLOOD ORDERABLES Performing Organization Address City/[facility]/[place] [address] Care Lab [address] Lab (1st floor, no room number) HCG QUALitative (blood) (04/26/2022 3:31 AM CDT) [facility] gist Method Time Signature hCG Serum Negative Negative REINA 04/26/2022 RH LABORATORY Qualitative 4:07 AM CDT Comment: This test is for screening purp oses. Results should be interpreted along with the clinical picture. Confirmation testing is available if warranted by ordering [id number], HCG Quantitative . Specimen Anatomical Collection Method / Collection Time Recei chelsie Time (Source) Location / Volume Laterality Blood BLOOD SPECIMEN / Venipuncture / 04/26/2022 3:31 2021 3:41 Unknown Unknown AM CDT AM CDT Sanford Dixon MD LAB - BLOOD ORDERABLES Performing Organization Address City/State/ZIP Code Phon [place] [phone] Care Lab [address] Lab (1st floor, no room number) (ABNORMAL) Basic metabolic panel (BMP) (04/26/2022 3:31 AM CDT)Only the most recent of2 resultswithin the time period is included. Analysis Performed At Patho logist Time Signature Sodium 139 136 - 145 04/26/2022 LABORATORY mmol/L 4:05 AM CDT Potassium 3.6 3.4 - 5.3 04/26/2022 LABORATORY mmol/L 4:05 AM CDT Chloride 104 98 - 107 04/26/2022 LABORATORY mmol/L 4:05 AM CDT Carbon Dioxide 25 22 - 29 04/26/2022 LABORATORY (CO2) mmol/L 4:05 AM CDT Anion Gap 10 7 - 15 04/26/2022 LABORATORY mmol/L 4:05 AM CDT Urea Nitrogen 8.7 6.0 - 20.0 04/26/2022 LABORATORY mg/dL 4:05 AM CDT Creatinine 0.78 0.51 - 04/26/2022 LABORATORY 0.95 mg/dL 4:05 AM CDT Calcium 9.6 8.6 - 10.0 04/26/2022 LABORATORY mg/dL 4:05 AM CDT Glucose 101 (H) 70 - 99 04/26/2022 LABORATORY mg/dL 4:05 AM CDT GFR Estimate >90 >60 04/26/2022 LABORATORY mL/min/1.7 4:05 AM CDT 3m2 Comment: Effective June 30, 2021 eGF Rcr in adults is calculated using the 2020 CKD-EPI creatinine equation which includ es age and gender (Hermilo et al., NEJM, DOI: 10.1056/CJRGwf3860079) Specimen Anatomical Collection Method / Collection Time Recei chelsie Time (Source) Location / Volume Laterality Blood BLOOD SPECIMEN / Venipuncture / 04/26/2022 3:31 2021 3:41 Unknown Unknown AM CDT AM CDT Sanford iDxon MD LAB - BLOOD ORDERABLES Performing Organization Address City/[facility]/ZIP Code [place] [address] Care Lab [address] Lab (1st floor, no room number) (ABNORMAL) CBC (platelets, no diff) (04/26/2022 3:31 AM CDT) [facility] Method Time Signature WBC Count 7.6 4.0 - 11.0 04/26/2022 RH LABORATORY 10e3/uL 3:56 AM CDT RBC Count 4.91 3.80 - 04/26/2022 RH LABORATORY 5.20 3:56 AM CDT 10e6/uL Hemoglobin 12.7 11.7 - 04/26/2022 RH LABORATORY 15.7 g/dL 3:56 AM CDT Hematocrit 40.9 35.0 - 04/26/2022 RH LABORATORY 47.0 % 3:56 AM CDT MCV 83 78 - 100 04/26/2022 RH LABORATORY fL 3:56 AM CDT MCH 25.9 (L) 26.5 - 04/26/2022 RH LABORATORY 33.0 pg 3:56 AM CDT MCHC 31.1 (L) 31.5 - 04/26/2022 RH LABORATORY 36.5 g/dL 3:56 AM CDT RDW 13.0 10.0 - 04/26/2022 RH LABORATORY 15.0 % 3:56 AM CDT Platelet Count 218 150 - 450 04/26/2022 RH LABORATORY 10e3/uL 3:56 AM CDT Specimen Anatomical Collection Method / Collection Time Recei chelsie Time (Source) Location / Volume Laterality Blood BLOOD SPECIMEN / Venipuncture / 04/26/2022 3:31 2021 3:42 Unknown Unknown AM CDT AM CDT Sanford Dixon MD LAB - BLOOD ORDERABLES Performing Organization Address City/State/ZIP Code [place] [phone] Care Lab [address] [facility] Lab (1st floor, no room number) LEADLESS METAL BONDER APPLICATION AND INTERPRETATION 3 TO 7 DAY (04/05/2022 10:38 AM CDT) Anatomical Region Laterality Modality Other Specimen (Source) Anatomical Location Collection Method / Collectio n Time Received Time / Laterality Volume Narrative This result has an attachment that is no t available. Zachary Burrell MD CV CARDIAC SERVICES ORDERABL ES LEADLESS METAL BONDER APPLICATION AND INTERP 8 TO 14 DAYS (03/26/2022 8:12 AM CDT) Anatomical Region Laterality Modality Other Specimen (Source) Anatomical Location Collection Method / Collectio n Time Received Time / Laterality Volume Narrative This result has an attachment that is no t available. Zachary Burrell MD CV CARDIAC SERVICES ORDERABL ES ECHO COMPLETE (03/26/2022 8:02 AM CDT) P athologist Signature LVEF 55% CARDIOLOGY RESULTS Anatomical Region Laterality Modality Echocardiography Specimen (Source) Anatomical Collection Method Collection Time Re ceived Time Location / / Volume Laterality 03/26/2022 7:39 AM CDT Narrative 03/26/2022 8:36 AM CDT [id number]^ROGER^ZACHARY [facility] Echocardiography Laboratory [address] [place] [address] Name: KIM CLARK : 2000 Study Date: 03/26/2022 07:39 AM Age: 21 yrs Gender: Female Patient Location: [facility] Reason For Study: Paroxysmal supraventri cular tachycardia (H) Ordering Physician: ZACHARY BURRELL Referring Physician: Marija Edgar Performed By: Reanna Fraire BSA: 1.9 m2 Height: 66 in Weight: 170 lb HR: 68 BP: 118/71 mmHg Procedure Complete Echo Adult. Interpretation Summary 1. The left ventricle is normal in struc ture, function and size. The visual ejection fraction is estimated at 55%. 2. The right ventricle is normal in stru cture, function and size. 3. No valve disease. No changes from echo 03/2021. Left Ventricle The left ventricle is normal in structur e, function and size. There is normal left ventricular wall thickness. The vis ual ejection fraction is estimated at 55%. Left ventricular diastolic function is normal. Normal left ventricular wall motion. Right Ventricle The right ventricle is normal in structu re, function and size. Atria Normal left atrial size. Right atrial si ze is normal. There is no atrial shunt seen. Mitral Valve The mitral valve is normal in structure and function. Tricuspid Valve There is trace to mild tricuspid regurgi tation. The right ventricular systolic pressure is approximated at 18.[address] us the right atrial pressure. Aortic Valve The aortic valve is normal in structure and function. Pulmonic Valve The pulmonic valve is normal in structur e and function. Vessels Normal ascending, transverse (arch), and descending aorta. The inferior vena cava was normal in size with preserved r espiratory variability. Pericardium There is no pericardial effusion. Rhythm Sinus rhythm was noted. MMode/2D Measurements & Calculations RVDd: 3.2 cm IVSd: 0.84 cm LVIDd: 5.1 cm LVIDs: 3.2 cm LVPWd: 0.70 cm FS: 36.6 % LV mass(C)d: 132.1 grams LV mass(C)dI: 70.8 grams/m2 Ao root diam: 2.8 cm LA dimension: 3.5 cm asc Aorta Diam: 2.4 cm LA/Ao: 1.2 LVOT diam: 2.0 cm LVOT area: 3.1 cm2 LA Volume (BP): 43.0 ml LA Volume Index (BP): 23.0 ml/m2 RWT: 0.27 Doppler Measurements & Calculations MV E max femi: 89.6 cm/sec MV A max femi: 50.8 cm/sec MV E/A: 1.8 MV dec time: 0.21 sec LV V1 max P.6 mmHg LV V1 max: 118.0 cm/sec LV V1 VTI: 25.4 cm SV(LVOT): 79.8 ml SI(LVOT): 42.7 ml/m2 PA acc time: 0.18 sec TR max femi: 214.0 cm/sec TR max P.3 mmHg E/E' av.8 Lateral E/e': 6.5 Medial E/e': 7.1 Report approved by: Adam Jolly 03/26/2022 08:36 AM Procedure Note Servando Schmidt MD - [id number]^ROGER^[facility] Echocardiography Laboratory [address] [place] [id number] Name: KIM CLARK : 2000 Study Date: 03/26/2022 07:39 AM Age: 21 yrs Gender: Female Patient Location: [facility] Reason For Study: Paroxysmal supraventri cular tachycardia (H) Ordering Physician: ZACHARY BURRELL Referring Physician: Marija Edgar Performed By: Reanna Fraire BSA: 1.9 m2 Height: 66 in Weight: 170 lb HR: 68 BP: 118/71 mmHg Procedure Complete Echo Adult. Interpretation Summary 1. The left ventricle is normal in struc ture, function and size. The visual ejection fraction is estimated at 55%. 2. The right ventricle is normal in stru cture, function and size. 3. No valve disease. No changes from echo 03/2021. Left Ventricle The left ventricle is normal in structur e, function and size. There is normal left ventricular wall thickness. The vis ual ejection fraction is estimated at 55%. Left ventricular diastolic function is normal. Normal left ventricular wall motion. Right Ventricle The right ventricle is normal in structu re, function and size. Atria Normal left atrial size. Right atrial si ze is normal. There is no atrial shunt seen. Mitral Valve The mitral valve is normal in structure and function. Tricuspid Valve There is trace to mild tricuspid regurgi tation. The right ventricular systolic pressure is approximated at 18.[address] us the right atrial pressure. Aortic Valve The aortic valve is normal in structure and function. Pulmonic Valve The pulmonic valve is normal in structur e and function. Vessels Normal ascending, transverse (arch), and descending aorta. The inferior vena cava was normal in size with preserved r espiratory variability. Pericardium There is no pericardial effusion. Rhythm Sinus rhythm was noted. MMode/2D Measurements & Calculations RVDd: 3.2 cm IVSd: 0.84 cm LVIDd: 5.1 cm LVIDs: 3.2 cm LVPWd: 0.70 cm FS: 36.6 % LV mass(C)d: 132.1 grams LV mass(C)dI: 70.8 grams/m2 Ao root diam: 2.8 cm LA dimension: 3.5 cm asc Aorta Diam: 2.4 cm LA/Ao: 1.2 LVOT diam: 2.0 cm LVOT area: 3.1 cm2 LA Volume (BP): 43.0 ml LA Volume Index (BP): 23.0 ml/m2 RWT: 0.27 Doppler Measurements & Calculations MV E max femi: 89.6 cm/sec MV A max femi: 50.8 cm/sec MV E/A: 1.8 MV dec time: 0.21 sec LV V1 max P.6 mmHg LV V1 max: 118.0 cm/sec LV V1 VTI: 25.4 cm SV(LVOT): 79.8 ml SI(LVOT): 42.7 ml/m2 PA acc time: 0.18 sec TR max femi: 214.0 cm/sec TR max P.3 mmHg E/E' av.8 Lateral E/e': 6.5 Medial E/e': 7.1 Report approved by: Adam Jolly 03/26/2022 08:36 AM Zachary Burrell MD CV ECHO ORDERABLES Symptomatic; Unknown COVID-19 Virus (Coronavirus) by PCR Nose (02/24/2022 3:50 PM CDT) Analysis Performed At Patho logist Time Signature SARS CoV2 PCR Negative Negative 02/25/2022 [facility] 1:08 PM CDT LABORATORY Comment: NEGATIVE: SARS-CoV-2 (COVID-19) RNA not detected, presumed negative. Specimen Anatomical Collection Method Collection Time Receive d Time (Source) Location / / Volume Laterality Swab NASAL STRUCTURE / Non-blood 02/24/2022 3:50 PM 02/08 5:21 Unknown Collection / CDT PM CDT Unknown Narrative [facility] LABORATORY - 02/25/2022 1:08 PM C DT Testing was performed using the Xpert Xpress SARS-CoV-2 Assay on the [employer] Systems. A dditional information about this Emergency Use Authorization (EUA) a ssay can be found via the Lab Guide. This test should be ordered for t he detection of SARS-CoV-2 in individuals who meet SARS-CoV-2 clinical and/or epidemiological criteria. Test performance is unknown in asymptomatic patients. This test is for in vitro diagnostic use unde r the FDA EUA for laboratories certified under CLIA to per form high complexity testing. This test has not been FDA cleared or ap proved. A negative result does not rule out the presence of PCR in hibitors in the specimen or target RNA in concentration below the li [place] of detection for the assay. The possibility of a false negati ve should be considered if the patient's recent exposure or clinica l presentation suggests COVID-19. This test was validated by the [facility] Diagnostic Laboratory. This lab oratory is certified under the Clinical Laboratory Improvement Amen dments of 1987 (CLIA-88) as qualified to perform high complexity lab oratory testing. Marcelo Ramirez PA-C LAB - MICRO GENERAL DONYA HERRERA Performing Organization Address City/State/ZIP Code Phon e Number [facility] LABORATORY [facility] [place] [address] Diag. Lab [address] [facility], Room [address]297 (ABNORMAL) CBC with platelets and differential (02/24/2022 3:50 PM CDT) [facility] Method Time Signature WBC Count 4.4 4.0 - 02/24/2022 [facility] 11.0 4:00 PM CDT 10e3/uL RBC Count 5.04 3.80 - 02/24/2022 [facility] 5.20 4:00 PM CDT 10e6/uL Hemoglobin 13.1 11.7 - 02/24/2022 [facility] LAB[facility]ATORY 15.7 g/dL 4:00 PM CDT Hematocrit 40.7 35.0 - 02/24/2022 [facility] LAB[facility]ORY 47.0 % 4:00 PM CDT MCV 81 78 - 100 02/24/2022 [facility] fL 4:00 PM CDT MCH 26.0 (L) 26.5 - 02/24/2022 [facility] 33.0 pg 4:00 PM CDT MCHC 32.2 31.5 - 02/24/2022 [facility] LAB[facility] 36.5 g/dL 4:00 PM CDT RDW 13.5 10.0 - 02/24/2022 [facility] 15.0 % 4:00 PM CDT Platelet Count 208 150 - 450 02/24/2022 [facility] LAB[facility]ATORY 10e3/uL 4:00 PM CDT % Neutrophils 55 % 02/24/2022 [facility] LAB[facility] 4:00 PM CDT % Lymphocytes 29 % 02/24/2022 [facility] 4:00 PM CDT % Monocytes 9 % 02/24/2022 [facility] LAB[facility] 4:00 PM CDT % Eosinophils 8 % 02/24/2022 [facility] LAB[facility]ORY 4:00 PM CDT % Basophils 1 % 02/24/2022 [facility] LAB[facility]ATORY 4:00 PM CDT Absolute 2.4 1.6 - 8.3 02/24/2022 [facility] LAB[facility]ATORY Neutrophils 10e3/uL 4:00 PM CDT Absolute 1.3 0.8 - 5.3 02/24/2022 [facility] LAB[facility]ATORY Lymphocytes 10e3/uL 4:00 PM CDT Absolute 0.4 0.0 - 1.3 02/24/2022 [facility] LAB[facility]ATORY Monocytes 10e3/uL 4:00 PM CDT Absolute 0.3 0.0 - 0.7 02/24/2022 [facility] LABORATORY Eosinophils 10e3/uL 4:00 PM CDT Absolute 0.0 0.0 - 0.2 02/24/2022 [facility] LAB[facility]ATORY Basophils 10e3/uL 4:00 PM CDT Specimen Anatomical Collection Method / Collection Time Recei chelsie Time (Source) Location / Volume Laterality Blood VENOUS BLOOD / Venipuncture / 02/24/2022 3:50 02/25/20 22 3:50 Unknown Unknown PM CDT PM CDT Marcelo Ramirez PA-C LAB - BLOOD ORDERABLES Performing Organization Address City/[facility] Phon e Number OX LABORATORY [place], [place] [phone] [facility] [phone] [place] [address] Lab (no room number, 1st floor of [facility]) OX LABORATORY [place], [place] [phone] [facility] [address] Lab (no room number, 1st floor of [facility]) Troponin I (02/24/2022 3:50 PM CDT) athologist Signature Troponin I High <3 <54 ng/L 02/24/2022 [facility] LAB[facility]AT[facility] Sensitivity 4:18 PM CDT Comment: This Troponin-I result was obta ined using a Siemens Dimension [place] High Sensitivity Troponin-I assay (TNIH). Eff ective 06/02/21, nine labs/sites in the [facility] switched from a Siemens [place] Contemporary Troponin I assay (CTNI) to a Siemens [place] High-Sensitivity Troponi n I assay (TNIH). Specimen Anatomical Collection Method / Collection Time Recei chelsie Time (Source) Location / Volume Laterality Blood VENOUS BLOOD / Venipuncture / 02/24/2022 3:50 02/25/20 22 3:50 Unknown Unknown PM CDT PM CDT Marcelo Ramirez PA-C LAB - BLOOD ORDERABLES Performing Organization Address City/[facility] Phon e Number OX LABORATORY [place], [place] [phone] [facility] [phone] [place] [address] Lab (no room number, 1st floor of [facility]) OX LABORATORY [place], [place] [phone] [facility] [address] Lab (no room number, 1st floor of clinic) D dimer, quantitative (02/24/2022 3:50 PM CDT) Analysis Performed At Patho logist Time Signature D-Dimer 0.28 0.00 - 02/24/2022 [facility] LAB[facility]ATORY Quantitative 0.50 ug/mL 4:16 PM CDT FEU Specimen Anatomical Collection Method / Collection Time Recei chelsie Time (Source) Location / Volume Laterality Blood VENOUS BLOOD / Venipuncture / 02/24/2022 3:50 02/25/20 3:50 Unknown Unknown PM CDT PM CDT Narrative [facility] LAB[facility]ATORY - 02/24/2022 4:16 PM CDT This D-dimer assay is intended for use i n conjunction with a clinical pretest probability assessment model to exclude pulmonary embolism (PE) and deep venous thrombosis (DVT) in outpatients suspecte d of PE or DVT. The cut-off value is 0.50 ug/mL FEU. Marcelo Ramirez PA-C LAB - BLOOD ORDERABLES Performing Organization Address City/State/ZIP Code Phon e Number OX LABORATORY [place], [place] [phone] [facility] [address] [place] [address] Lab (no room number, 1st floor of clinic) [facility] [place], [place] [phone] [facility] [address] Lab (no room number, 1st floor of clinic) EKG 12-lead complete w/read - Clinics (02/24/2022)Only the most recent of2 resultswithin the time period is included. Narrative This result has an attachment that is no t available. Marcelo Ramirez PA-C ECG ORDERABLES from Last 3 Months Insurance Payer Benefit Plan / Subscriber ID Effective Dates Phone Addre ss Type Group [facility] [id number] 2021-Present [phone] [address] [place] [address] [facility] [id number] 2021-Present [phone] [address] [place] [address] [phone] (Home) [place] [address] Kim Clark Personal/Family Self 2000 [phone] (Home) [place] [address] Kim Clark Worker's Self 2000 [phone] Compensation 9 (Home) [place] [address] Kim Clark Behavioral Self 2000 [phone] (Home) [place] [address] Kim Clark Worker's Self 2000 [phone] Compensation 4 (Home) [facility], [phone] [place] [address] 8 (Work) Kim Clark Medication Therapy Self [address] (Home) [place] [address] Advance Directives For more information, please contact: [phone] Latest Code Status on File Code Status Date Activated Date Inactivated Comments Full Code 01/14/2021 7:36 AM 01/15/2021 6:05 PM All basic and advanced life-sustaining interventions ar e performed as appropriate Question Answer Comments Code status determined by: Discussion with patient/ legal de cision maker Care Teams Toll Bridge Attendant Relationship Specialty Start Date End Date Marija Edgar, PCP - General Nurse Practitioner 04/30/20 [employer] [address] [place] [address] Lita Oseguera Personal Advocate & 02/28/20 Liaison (PAL) Marija Edgar, Assigned PCP 06/08/20 [employer] [address] [place] [address] Mauri, Assigned Neuroscience 06/04/20 MD Keisha Provider [address] [facility], [place] [id number] Diana Desir, Pharmacist Pharmacist 04/17/21 [facility] [address] [place], [place] [address] Rain Galaviz Physician Snowmaker Dermatology 04/28/21 ROVERTO Paredes [address] [place] [address] [address] [place], [place] [id number] Tavia Wyatt MD Dermatology 07/14/21 Erica Ochoa Nurse Practitioner Cardiovascular Disease 09/09/21 ARLENE Guidyr [employer] [address] [facility] [address] [place], [place] [address] Tavia Wyatt, Assigned Surgical 11/29/21 MD Provider Rich Barrett Physician Ophthalmology 01/21/22 Gerson Reyes MD [address] [facility] [address] [place] [address] Neil Kent MD MD Dermatology 02/24/22 [address] [place] [address] Roney Story, Assigned Musculoskeletal 03/20/22 DPM Provider [address] [facility] [address] [place], [place] [phone] Erica Farrell Assigned Heart and 04/03/22 ARLENE Guidyr [employer]AD Vascular Provider [address] [place] [address] Diana Desir, Assigned MTM Pharmacist 04/07/22 [facility] [address] [place], [place] [id number]
--- OUTSIDE RECORDS SUMMARY | 2022-04-28 01:05 | XMS_ITS | Encounter Summary ---
:2000 Author Organization [facility] Address [address] [place] [address] Care Team Providers Name Role Phone Lita Oseguera Unavailable Unavailable Marija Edgar APRN ACADEMIC SPECIALIST Primary Care Provider [phone] Marija Edgar APRN ACADEMIC SPECIALIST Unavailable Keisha Dotson MD Unavailable Diana Desir [facility] Unavailable Rain Galaviz PA-C Unavailable [phone] Tavia Wyatt MD Unavailable Unavailable Erica Farrell APRN ACADEMIC SPECIALIST Unavailable [phone] Tavia Wyatt MD Unavailable Unavailable Rich Barrett MD Unavailable [phone] Neil Kent MD Unavailable Roney Story DPM Unavailable Erica Farrell APRN ACADEMIC SPECIALIST Unavailable + Diana Desir [facility] Unavailable Reason for Visit Reason Comments Headache Encounter Details Date Type Department Care Team Description 04/26/2022 [facility] Sanford Dixon MD EMERGENCY PHYSICIAN [facility] [address] [place], [place] [address] Acute nonintractable headache, unspecifi ed headache type; [facility] Fabián Chang MD EM[facility]Y PHYSICIANS [facility] [address] [place] [address] Febrile illness Dept [address] [place] [address] Social History Tobacco Use Types Packs/Day Years Used Date Smoking Tobacco: Former Cigarettes 1 Quit : 12/07/2019 Other Smokeless Tobacco: Never Alcohol Use Standard Drinks/Week Comments Not Currently [...] week 09/22/2021 How often do you attend episcopalian or sabianist services? Never 09/22/2021 Do you belong to any clubs or organizations such as No 09/22/2021 episcopalian groups, unions, fraternal or athletic groups, or [...] place to sleep or slept in a [facility] (including now)? Education Answer Date Recorded What [...] was confirmed or suspected to have Coronavirus/COVID-19? documented as of this encounter Last Filed Vital Signs Vital Sign Reading [...] Mass Index 26.63 04/26/2022 3:29 AM CDT documented in this encounter Discharge Instructions AttachmentsThe following attachments cannot be sent through Care Everywhere. Febrile Illness, Uncertain Cause (Adult) (Canadian)Headaches, Self-Care for (Canadian)documented in this encounter Medications at Time of Discharge Medication Sig Dispensed Refills Start Date End Date augmented betamethasone Apply up to twice 150 g 08/11 dipropionate daily as needed for (DIPROLENE-AF) 0.05 % psoriasis on thicker external areas of skin. ointmentIndications: Psoriasis benzonatate (TESSALON) Take 1 capsule (100 30 capsule 0 10/10 100 MG mg) by mouth 3 times capsuleIndications: Viral daily as needed for URI with cough cough fluocinonide (LIDEX) 0.05 Apply small amount to 60 mL 08/11/2021 % external psoriasis on the solutionIndications: scalp. Psoriasis levETIRAcetam (KEPPRA) Take 1 tablet (500 90 tablet 3 12/03 500 MG tabletIndications: mg) by mouth daily Convulsions, unspecified convulsion type (H) LORazepam (ATIVAN) 0.5 MG Take 1 tablet (0.5 30 tablet 0 tabletIndications: mg) by mouth daily as Anxiety needed for anxiety omeprazole (PRILOSEC) 40 Take 1 capsule ([address] capsuleIndications: mg) by mouth daily Epigastric pain PARoxetine (PAXIL) 40 MG Take 1 tablet (40 mg) 90 tablet 1 01/04/2022 tabletIndications: by mouth At Bedtime Anxiety Vit-Fe Take 1 tablet by 90 tablet 3 06/04/2020 Fumarate-FA ( mouth daily MULTIVITAMIN W/IRON) 27-0.8 MG tablet tacrolimus (PROTOPIC) 0.1 Apply thin layer to 60 g 11 0 08/11/2021 % external psoriasis on thinner ointmentIndications: skin up to twice Psoriasis daily as needed. documented as of this encounter ED Notes Misty Parry RN - 04/26/2022 3:27 AM CDT Migraine since 99. No hx of migraines. Temp 102.1 and HR 160 at home - hx of SVT requiring ablation. Sanford Dixon MD - 04/26/2022 3:25 AM CDT History Chief Complaint: Headache The history is provided by the patient. Kim Johnson is a 22 year old female with history of migraines, KALYN, and SVT who presents with a worsening headache since 1300 this afternoon. Headache started suddenly and has gradually been worsening since that time. She was having some neck pain the past few days before the headache started. She has history of chronic neck pain and migraines but this feels somewhat different. She tried taking Tylenol and ibuprofen at 1300 for pain management with no relief. Also, she has had chills and a fever.She recorded a temperature of 102.1 degrees at home. When she tried relaxing her head, she experienced a fast heart beat. Other symptoms mentioned include diffuse myalgias. She does not have a history of IV drug use. She was recently exposed to her daughter who has an ear infection. She denies rhinorrhea, cough, sore throat, vomiting, diarrhea, rashes or tick bites, abdominal pain, or neck stiffness Review of Systems Constitutional: Positive for chills and fever. HENT: Negative for rhinorrhea and sore throat. Respiratory: Negative for cough. Cardiovascular: Positive for palpitations. Gastrointestinal: Negative for abdominal pain, diarrhea and vomiting. Musculoskeletal: Positive for myalgias (Diffuse). Negative for neck stiffness. Skin: Negative for rash and wound. Neurological: Positive for headaches. All other systems reviewed and are negative. 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 Paroxysmal supraventricular tachycardia Past Surgical History: Unspecified kidney surgery Family History: Sister - brain tumor Social History: The patient presents to the ED alone via private vehicle PCP: Marija Edgar Physical Exam Patient Vitals for the past 24 hrs: BP Temp Temp src Pulse Resp SpO2 Height Weight 04/26/22 0545 106/60 -- -- 95 -- -- -- -- 04/26/22 0530 103/54 -- -- 87 -- -- -- -- 04/26/22 0520 -- 99.6 ??F (37.6 ??C) Oral -- -- -- -- -- 04/26/22 0515 115/73 -- -- 105 -- -- -- -- 04/26/22 0500 119/77 -- -- 92 -- -- -- -- 04/26/22 0445 122/75 -- -- 96 -- -- -- -- 04/26/22 0436 132/76 -- -- 103 -- -- -- -- 04/26/22 0415 135/85 -- -- (!) 122 -- -- -- -- 04/26/22 0400 125/84 -- -- 119 -- -- -- -- 04/26/22 0356 -- (!) 100.5 ??F (38.1 ??C) Oral (!) 140 -- -- -- -- 04/26/22 0345 134/81 -- -- (!) 125 -- -- -- -- 04/26/22 0329 (!) 158/70 99.9 ??F (37.7 ??C) Temporal (!) 135 16 97 % 1.676 m (5' 6) 74.8 kg (165 lb) Physical Exam Vitals and nursing note reviewed. Constitutional: General: She is not in acute distress. Appearance: She is not ill-appearing. HENT: Head: Normocephalic and atraumatic. Right Ear: External ear normal. Left Ear: External ear normal. Nose: Nose normal. Mouth/Throat: Mouth: Mucous membranes are moist. Eyes: Extraocular Movements: Extraocular movements intact. Conjunctiva/sclera: Conjunctivae normal. Pupils: Pupils are equal, round, and reactive to light. Cardiovascular: Rate and Rhythm: Regular rhythm. Tachycardia present. Heart sounds: No murmur heard. Pulmonary: Effort: Pulmonary effort is normal. No respiratory distress. Breath sounds: Normal breath sounds. No wheezing, rhonchi or rales. Abdominal: General: Abdomen is flat. Bowel sounds are normal. There is no distension. Palpations: Abdomen is soft. Tenderness: There is no abdominal tenderness. There is no guarding or rebound. Musculoskeletal: General: No deformity or signs of injury. Cervical back: Full passive range of motion without pain, normal range of motion and neck supple. No rigidity. No pain with movement. Skin: General: Skin is warm and dry. Findings: No rash. Neurological: Mental Status: She is alert and oriented to person, place, and time. GCS: GCS eye subscore is 4. GCS verbal subscore is 5. GCS motor subscore is 6. Cranial Nerves: No cranial nerve deficit. Sensory: Sensation is intact. Motor: No weakness. Psychiatric: Mood and Affect: Mood is anxious. Behavior: Behavior normal. Emergency Department Course ECG: ECG taken at 0344, ECG read at 0348 Sinus tachycardia T wave abnormality, consider inferior infarct Abnormal ECG Rate 126 bpm. ID interval 166 ms. QRS duration 82 ms. QT/QTc 286/414 ms. P-R-T axes 61 54 43. Imaging: Head CT w/o contrast (Results Pending) CTA Head Neck with Contrast (Results Pending) Report per radiology Laboratory: Labs Ordered and Resulted from Time of ED Arrival to Time of ED Departure CBC WITH PLATELETS - Abnormal Result Value WBC Count 7.6 RBC Count 4.91 Hemoglobin 12.7 Hematocrit 40.9 MCV 83 MCH 25.9 (*) MCHC 31.1 (*) RDW 13.0 Platelet Count 218 BASIC METABOLIC PANEL - Abnormal Sodium 139 Potassium 3.6 Chloride 104 Carbon Dioxide (CO2) 25 Anion Gap 10 Urea Nitrogen 8.7 Creatinine 0.78 Calcium 9.6 Glucose 101 (*) GFR Estimate >90 ROUTINE UA WITH MICROSCOPIC REFLEX TO CULTURE - Abnormal Color Urine Light Yellow Appearance Urine Clear Glucose Urine Negative Bilirubin Urine Negative Ketones Urine Negative Specific [place] Urine 1.023 Blood Urine Negative pH Urine 7.5 (*) Protein Albumin Urine Negative Urobilinogen Urine Normal Nitrite Urine Negative Leukocyte Esterase Urine Negative Bacteria Urine Few (*) Mucus Urine Present (*) RBC Urine <1 WBC Urine <1 Squamous Epithelials Urine 4 (*) ISTAT GASES LACTATE VENOUS POCT - Abnormal Lactic Acid POCT 0.7 Bicarbonate Venous POCT 25 O2 Sat, Venous POCT 63 (*) pCO2V Venous POCT 40 pH Venous POCT 7.40 pO2 Venous POCT 32 HCG QUALITATIVE - Normal hCG Serum Qualitative Negative INFLUENZA A/B & SARS-COV2 PCR MULTIPLEX - Normal Influenza A PCR Negative Influenza B PCR Negative RSV PCR Negative SARS CoV2 PCR Negative BLOOD CULTURE BLOOD CULTURE Emergency Department Course: Reviewed: I reviewed nursing notes, vitals and past medical history Assessments: 0 I obtained history and examined the patient as noted above. 719 I rechecked the patient and explained findings. . Interventions: Medications ketorolac (TORADOL) injection 10 mg (has no administration in time range) 0.9% sodium chloride BOLUS (0 mLs Intravenous Stopped 04/26/22554) Followed by 0.9% sodium chloride BOLUS (0 mLs Intravenous Stopped 04/26/22554) metoclopramide (REGLAN) injection 10 mg (10 mg Intravenous Given 04/26/22423) diphenhydrAMINE (BENADRYL) injection 25 mg (25 mg Intravenous Given 04/26/22423) acetaminophen (TYLENOL) tablet 1,000 mg (1,000 mg Oral Given 04/26/22422) Disposition: Care of the patient was transferred to my colleague Dr. Chen pending CT/CTA results. Impression & Plan Medical Decision Makin-year-old female with headache and fever. Has history of migraines and chronic neck pain so suspect this is etiology of her headache. However patient does note that it was a fairly sudden onset. Fairly low suspicion for subarachnoid hemorrhage or vertebral dissection. Headache was not worse at onset, as it has gradually been worsening since it started. She has no neurologic deficits. She also developed a fever this afternoon. Suspect that she has a viral illness. Do not suspect meningitis as she has no neck stiffness on her exam. Her lab work is all unremarkable. She was given Reglan, Benadryl, acetaminophen, IV fluids with near resolution of her headache. She was also concerned about her heart rate and palpitations given her history of SVT. However her EKG showed that she was in sinus tachycardia. Her heart rate has normalized down to the 90s with IV fluids and treatment of her symptoms. I rechecked the patient and she remains concerned that this headache is not similar to her usual migraines. Therefore we will check neuroimaging to rule out subarachnoid hemorrhage, aneurysm, dissection. I have low suspicion for these. Assuming her CTs are negative we will plan for discharge home with close primary care follow-up. I did discuss return precautions with her. Patient will be endorsed to Dr. Chen at end of shift and he will follow-up on CT imaging. Diagnosis: ICD-10-CM 1. Acute nonintractable headache, unspecified headache type R51.9 2. Febrile illness R50.9 Discharge Medications: New Prescriptions No medications on file Scribe Disclosure: I, Good Jacques, am serving as a scribe at 3:36 AM on 04/26/2022 to document services personally performed by Sanford Dixon MD based on my observations and the provider's statements to me. Sanford Dixon MD 04/26/22 0741 Fabián Chen MD - 04/26/2022 3:25 AM CDT Patient was signed out to me by Dr. Dixon. Please see his note for further details. Plan at time of signout was follow-up on CT head and CTA head and neck results and discharge home if those are negative. Those results are unremarkable. Discussed with the patient she was feels comfortable with discha rge home at this time. She was in no distress at time of discharge. Fabián Chen MD 04/26/22 0911 documented in this encounter Plan of Treatment Upcoming Encounters Date Type Specialty Care Team Description 04/28/2022 Office Visit [facility] Anthony Doe, PAUcheC [address] [place], [place] [phone] (Wo rk) 05/03/2022 Office Visit Dermatology Neil Kent M D [address] [place], [place] [phone] (Wo rk) 05/05/2022 Office Visit Optometry Yeny David, OD [address] [place] [phone] (Wo rk) 05/11/2022 Virtual Visit Pharm D Diana Desir , [facility] [address] [place], [place] [address] (Wo rk) 05/14/2022 Office Visit Cardiology Livan Sharif MD [address] [facility] [address] [place], [place] [phone] (Wo rk) 05/31/2022 Office Visit [facility] Valery Veronica PA-C [address] [place], [place] [phone] (Wo rk) Pending Results Name Type Priority Associated Diagnoses Date/Ti me Blood Culture Line, Microbiology STAT 04/26/20 4:33 AM CDT venous Blood Culture Arm, Microbiology STAT 5:15 AM CDT Right documented as of this encounter Procedures Procedure Name Priority Date/Time Associated Comments Diagnosis CTA HEAD NECK W STAT 04/26/2022 8:17 AM Result s for this CONTRAST CDT procedure are i n the results section. CT HEAD W/O CONTRAST STAT 04/26/2022 8:17 AM R esults for this CDT procedure are i n the results section. BLOOD CULTURE STAT 04/26/2022 5:15 AM CDT INFLUENZA A/B & STAT 04/26/2022 4:33 AM Result s for this SARS-COV2 PCR CDT procedure are in MULTIPLEX the results section. ROUTINE UA WITH STAT 04/26/2022 4:33 AM Result s for this MICROSCOPIC REFLEX TO CDT proced ure are in CULTURE the results section. BLOOD CULTURE STAT 04/26/2022 4:33 AM CDT ISTAT GASES LACTATE STAT 04/26/2022 4:21 AM Re sults for this VENOUS POCT CDT procedure are i n the results section. EKG 12-LEAD, TRACING STAT 04/26/2022 3:44 AM R esults for this ONLY CDT procedure are i n the results section. EXTRA TUBE STAT 04/26/2022 3:31 AM Results f or this CDT procedure are i n the results section. EXTRA PURPLE TOP TUBE STAT 04/26/2022 3:31 AM Results for this CDT procedure are i n the results section. EXTRA GREEN TOP STAT 04/26/2022 3:31 AM Result s for this (LITHIUM HEPARIN) CDT procedure are in TUBE the results section. EXTRA BLUE TOP TUBE STAT 04/26/2022 3:31 AM Re sults for this CDT procedure are i n the results section. HCG QUALITATIVE STAT 04/26/2022 3:31 AM Result s for this CDT procedure are i n the results section. BASIC METABOLIC PANEL STAT 04/26/2022 3:31 AM Results for this CDT procedure are i n the results section. CBC WITH PLATELETS STAT 04/26/2022 3:31 AM Res ults for this CDT procedure are i n the results section. documented in this encounter Results CTA Head Neck with Contrast (04/26/2022 [...] significant stenosis. KENYA HERNANDEZ MD SYSTEM ID: ??[id number] Narrative 04/26/2022 11:[address] ANGIOGRAM [...] ANGIOGRAM OF THE HEAD AND NECK WITH C ONTRAST April 26, 2022 8:17 AM HISTORY: Sudden [...] significant stenosis. KENYA HERNANDEZ MD SYSTEM ID: [id number] Sanford Dixon MD IMG CT ORDERABLES Head [...] or herniation. KENYA HERNANDEZ MD SYSTEM ID: ??[id number] Narrative 04/26/2022 9:[address] SCAN [...] or herniation. KENYA HERNANDEZ MD SYSTEM ID: [id number] Sanford Dixon MD IMG CT ORDERABLES (ABNORMAL) UA with Microscopic reflex to Culture (04/26/2022 4:33 AM CDT) Patholo gist Method Time Signature Color Urine Light Colorless, 04/26/2022 LABORATORY Yellow Straw, 5:14 AM CDT Light Yellow, Yellow Appearance Urine Clear Clear 04/26/2022 RH LABORATOR Y 5:14 AM CDT Glucose Urine Negative Negative 04/26/2022 LABORATORY mg/dL 5:14 AM CDT Bilirubin Urine Negative Negative 04/26/2022 LABORATORY 5:14 AM CDT Ketones Urine Negative Negative 04/26/2022 LABORATORY mg/dL 5:14 AM CDT Specific [place] 1.023 1.003 - 04/26/2022 RH LABORATOR Y Urine 1.035 5:14 AM CDT Blood Urine Negative Negative 04/26/2022 LABORATORY 5:14 AM CDT pH Urine 7.5 (H) 5.0 - 7.0 04/26/2022 RH LABORATORY 5:14 AM CDT Protein Albumin Negative [...] Mucus Urine Present (A) None Seen 04/26/2022 LABORATORY /LPF 5:14 AM CDT RBC Urine [...] Collection / CDT AM CDT Unknown Narrative LABORATORY - 04/26/2022 5:14 AM CDT Urine Culture not indicated Sanford Dixon MD LAB - URINE ORDERABLES Performing Organization Address City/State/ZIP Code [place] [address] Care [facility] [address] Lab (1st floor, no room number) Symptomatic; Yes; 04/25/2022 Influenza A/B & SARS-CoV2 [...] Xpert Xp ress CoV2/Flu/RSV Assay on the FluxDrive GeneXpert Instrument. This test should b e [...] ment. This test [facility]. These laboratorie s are certified under the Clinical Laboratory Improvement Amendments of 1988 (CLIA-88) as qualified to perform high complexity laboratory testing. Sanford Dixon MD LAB - MICRO GENERAL ORDERABL ES Performing Organization Address City/State/ZIP [place] [address] Care Lab [address] [facility] Lab (1st floor, no room number) (ABNORMAL) iStat Gases (lactate) venous, POCT (04/26/2022 4:21 AM CDT) Analysis Performed At Patho logist Time Signature Lactic Acid POCT 0.7 <=2.0 04/26/2022 LABORATOR Y mmol/L 4:36 AM CDT POC Bicarbonate 25 21 - 28 04/26/2022 LABORATORY Venous POCT mmol/L 4:36 AM CDT POC O2 Sat, Venous 63 (L) 94 - 100 % 04/26/2022 LABORATORY POCT 4:36 AM CDT POC pCO2V Venous 40 40 - 50 mm 04/26/2022 LABORATORY POCT Hg 4:36 AM CDT POC pH Venous POCT 7.40 7.32 - 04/26/2022 LABORATORY 7.43 4:36 AM CDT POC pO2 Venous POCT 32 25 - 47 mm 04/26/2022 RH LABORATOR Y Hg 4:36 AM CDT POC Specimen Anatomical Collection Method Collection Time Receive d Time (Source) Location / / Volume Laterality Blood, venous BLOOD SPECIMEN / 04/26/2022 4:21 AM 04/10 4:36 Unknown CDT AM CDT Sanford Dixon MD LAB - BEAKER POCT Performing Organization Address City/State/ZIP Code Phon e Number [place] [address] Care Lab [address] Lab (1st floor, no room number) EKG 12-lead, tracing only (04/26/2022 3:44 AM CDT) Component Value Ref Range Test Analysis Performed Pathologis t Method Time At Signature Systolic Blood mmHg RADIOLOGY Pressure RESULTS Diastolic Blood mmHg RADIOLOGY Pressure RESULTS Ventricular Rate 126 BPM RADIOLOGY RESULTS Atrial Rate 126 BPM RADIOLOGY RESULTS ID Interval 166 ms RADIOLOGY RESULTS QRS Duration 82 ms RADIOLOGY RESULTS QT 286 ms RADIOLOGY RESULTS QTc 414 ms RADIOLOGY RESULTS P [place] 61 degrees RADIOLOGY RESULTS R AXIS 54 degrees RADIOLOGY RESULTS T [place] 43 degrees RADIOLOGY RESULTS Interpretation Sinus tachycardia RADIOLO GY ECG T wave abnormality, consider inferior ischemia RESULTS Abnormal ECG When compared with ECG of 18-SEP-2021 13:39, No significant change was found Confirmed by - EMERGENCY MAGDIEL Medina, PHYSICIAN ([id number]), editorial writer KEYLA MERIDA ([id number]) on 04/26/2022 6:52:21 AM [...] LAB - BLOOD ORDERABLES Performing Organization Address City/[facility]/ZIP Code [place] [address] Care Lab [address] Lab (1st floor, no room number) Extra Green Top ([place] Heparin) Tube (04/26/2022 3:31 AM CDT) P athologist Signature Hold Specimen JI 04/26/2022 RH LABORATORY 4:47 AM CDT Specimen Anatomical Collection Method / Collection Time Recei chelsie Time (Source) Location / Volume Laterality Blood BLOOD SPECIMEN / Venipuncture / 04/26/2022 3:31 2021 3:41 Unknown Unknown AM CDT AM CDT Sanford Dixon MD LAB - BLOOD ORDERABLES Performing Organization Address City/[facility]/ZIP Code [place] [address] Care Lab [address] Lab (1st floor, no room number) Extra Blue Top Tube (04/26/2022 3:31 AM CDT) athologist Signature Hold Specimen [facility] 04/26/2022 RH LABORATORY 4:47 AM CDT Specimen Anatomical Collection Method / Collection Time Recei chelsie Time (Source) Location / Volume Laterality Blood BLOOD SPECIMEN / Venipuncture / 04/26/2022 3:31 2021 3:41 Unknown Unknown AM CDT AM CDT Sanford Dixon MD LAB - BLOOD ORDERABLES Performing Organization Address City/[facility]/ZIP Code [place] [address] Care Lab [address] Lab (1st floor, no room number) HCG QUALitative (blood) (04/26/2022 3:31 AM CDT) [facility] Method Time Signature hCG Serum Negative Negative REINA 04/26/2022 RH LABORATORY Qualitative 4:07 AM CDT Comment: This test is for screening purp oses. Results should be interpreted along with the clinical picture. Confirmation testing is available if warranted by ordering [id number], HCG Quantitative . Specimen Anatomical Collection Method / Collection Time Recei chelsie Time (Source) Location / Volume Laterality Blood BLOOD SPECIMEN / Venipuncture / 04/26/2022 3:31 2021 3:41 Unknown Unknown AM CDT AM CDT Sanford Dixon MD LAB - BLOOD ORDERABLES Performing Organization Address City/State/ZIP Code [place] [address] Care Lab [address] Lab (1st floor, no room number) (ABNORMAL) Basic metabolic panel (BMP) (04/26/2022 3:31 AM CDT) Analysis Performed At Patho logist [...] and gender (Hermilo et al., NEJM, DOI: 10.1056/[id number]) Specimen Anatomical Collection Method / Collection Time Recei chelsie Time (Source) Location / Volume Laterality Blood BLOOD SPECIMEN / Venipuncture / 04/26/2022 3:31 2021 3:41 Unknown Unknown AM CDT AM CDT Sanford Dixon MD LAB - BLOOD ORDERABLES Performing Organization Address City/[facility]/ZIP Code [place] [address] Care Lab [address] Lab (1st floor, no room number) (ABNORMAL) CBC (platelets, no diff) (04/26/2022 3:31 AM CDT) [facility] Method Time Signature WBC Count 7.6 4.0 [...] 3:42 Unknown Unknown AM CDT AM CDT Safnord Dixon MD LAB - BLOOD ORDERABLES Performing Organization Address City/[facility]/ZIP Code [place] [phone] Care Lab [address] [facility] Lab (1st floor, no room number) documented in this encounter Visit Diagnoses Diagnosis Acute nonintractable headache, unspecifi ed headache type Febrile illness Fever, unspecified documented in this encounter Administered Medications Inactive Administered Medications - up to 3 most recent administrations Medication Order MAR Action Action Date Dose Rate Site 0.9% sodium chloride BOLUS New Bag 04/26/2022 4:22 AM CDT 1,000 mLs 1000 mL/hr Intravenous, 1,000 mL, ONCE, at 1,000 mL/hr, Administer over 1 Hours, On Tue04/26/22 at 0415, For 1 dose 0.9% sodium chloride BOLUS New Bag 04/26/2022 4:27 AM CDT 1,000 mLs 1000 mL/hr Intravenous, 1,000 mL, ONCE, at 1,000 mL/hr, Administer over 1 Hours, On Tue04/26/22 at 0420, For 1 dose acetaminophen (TYLENOL) tablet 1,000 mg Given 04/26/2022 4:23 AM CDT 1,000 mg 1,000 mg, Oral, ONCE, On Tue04/26/22 at 0415, For 1 dose, Maximum acetaminophen dose from all sources = 75 mg/kg/day not to exceed 4 gram diphenhydrAMINE (BENADRYL) injection 25 mg Given 04/26/2022 4:24 AM CDT 25 mg 25 mg, Intravenous, ONCE, On Tue04/26/22 at 0415, For 1 dose iopamidol (ISOVUE-370) solution 75 mL Given 04/26/2022 7:49 AM CDT 75 mLs 75 mL, Intravenous, ONCE, On Tue04/26/22 at 0750, For 1 dose ketorolac (TORADOL) injection 10 mg Given 04/26/2022 8:15 AM CDT 10 mg 10 mg, Intravenous, ONCE, On Tue04/26/22 at 0715, For 1 dose, Do not give within 6 hours of Ibuprofen. Can cause pain on injection. If ordered intravenously (IV) : administer through a running maintenance fluid over 1 minute followed by a flush. If patient complains of pain on injection, may dilute 15-30 mg in 5 mL and push over 1 to 2 minutes. metoclopramide (REGLAN) injection 10 mg Given 04/26/2022 4:24 AM CDT 10 mg 10 mg, Intravenous, Administer over 2 Minutes, ONCE, On Tue04/26/22 at 0415, For 1 dose, Avoid use if patient has full bowel obstruction or perforation. Irritant. sodium chloride (PF) 0.9% PF flush 80 mL Given 04/26/2022 7:49 AM CDT 80 mLs 80 mL, Intravenous, ONCE, On Tue04/26/22 at 0750, For 1 dose documented in this encounter Active and Recently Administered Medications Times are shown in CDT. Scheduled Medication Order 04/24/2022 04/25/2022 04/26/2022 0.9% sodium chloride BOLUS (COMPLETED) 042 (New Bag - Provider: Samantha Neal RN)0555 (Stopped - Provider: Samantha Neal RN) Intravenous, 1,000 mL, ONCE, at 1,000 mL /hr, Administer over 1 Hours, On Tue04/26/22 at 0415, For 1 dose 0.9% sodium chloride BOLUS (COMPLETED) 042 (New Bag - Provider: Samantha Neal RN)0555 (Stopped - Provider: Samantha Neal, VJ) Intravenous, 1,000 mL, ONCE, at 1,000 mL /hr, Administer over 1 Hours, On Tue04/26/22 at 0420, For 1 dose acetaminophen (TYLENOL) tablet 1,000 mg (COMPLETED) 042 (Given - Provider: Samantha Neal RN) 1,000 mg, Oral, ONCE, On Tue04/26/22 at 0415, For 1 dose, Maximum acetaminophen dose from all sources = 75 mg/kg/day not to exceed 4 gram diphenhydrAMINE (BENADRYL) injection 25 mg (COMPLETED) 042 (Given - Provider: Samantha Neal RN) 25 mg, Intravenous, ONCE, On Tue04/26/22 at 0415, For 1 dose iopamidol (ISOVUE-370) solution 75 mL (COMPLETED) 07 (Given - Provider: Eliot Cid RT) 75 mL, Intravenous, ONCE, On Tue04/26/22 at 0750, For 1 dose ketorolac (TORADOL) injection 10 mg (COMPLETED) 0815 (Given - Provider: Dara Kaba RN) 10 mg, Intravenous, ONCE, On Tue 2 at 0715, For 1 dose, Do not give within 6 hours of Ibuprofen. Can cause pain on injection. If ordered intravenously (IV) : administer through a running maintena nce fluid over 1 minute followed by a fl ush. If patient complains of pain on injection, may dilute 15-30 mg in 5 mL and push over 1 to 2 minutes. metoclopramide (REGLAN) injection 10 mg (COMPLETED) 042 (Given - Provider: Samantha Neal, VJ) 10 mg, Intravenous, Administer over 2 Mi nutes, ONCE, On Tue04/26/22 at 0415, For 1 dose, Avoid use if patient has full bowel obstruction or perforation. Irritant. sodium chloride (PF) 0.9% PF flush 80 mL (COMPLETED) 07 (Given - Provider: RT Aurora) 80 mL, Intravenous, ONCE, On Tue04/26/22 at 0750, For 1 dose documented in this encounter Additional Health Concerns Infection Onset Date Last Indicated Resolved Time Rule Out COVID-19 04/26/2022 04/26/2022 04/26/2022 6:4 7 AM CDT Assessment Noted Time PHQ-9 Depression Total Score: 2 12/18/2021 2:50 PM CDT documented as of this encounter Care Teams Office Lead Relationship Specialty Start Date End Date Marija Edgar, PCP - General Nurse Practitioner 04/30/20 HEATER MECHANIC ACADEMIC SPECIALIST [address] [place] [address] Lita Oseguera Personal Advocate & 02/28/20 Liaison (PAL) Marija Edgar, Assigned PCP 06/08/20 HEATER MECHANIC ACADEMIC SPECIALIST [address] [place] [address] Melody Dotson Neuroscience 06/04/20 MD Keisha Provider [address] [place] [address] Diana Desir, Pharmacist Pharmacist 04/17/21 [facility] [address] [place] [address] Rain Galaviz Physician Residential Door Installer Dermatology 04/28/21 ROVERTO Paredes [address] [place] [address] [place] [address] Tavia Wyatt MD Dermatology 07/14/21 Erica Ochoa Nurse Practitioner Cardiovascular Disease 09/09/21 ARLENE Guidry ACADEMIC SPECIALIST [address] [facility] [address] [place], [place] [address] Tavia Wyatt, Assigned Surgical 11/29/21 MD Provider Rich Barrett Physician Ophthalmology 01/21/22 Gerson Reyes MD [address] [facility], CLIN[address] [place], [place] [address] Neil Kent MD MD Dermatology 02/24/22 500 [place], [place] [address] Roney Story, Assigned Musculoskeletal 03/20/22 DPM Provider [address] [facility] [address] [place], [place] [address] Erica Farrell Assigned Heart and 04/03/22 ARLENE Guidry ACADEMIC SPECIALIST Vascular Provider [address] [place] [address] Diana Desir, Assigned MTM Pharmacist 04/07/22 [facility] [address] [place], [place] [address] documented as of this encounter
--- OUTSIDE RECORDS SUMMARY | 2022-04-28 01:05 | XMS_ITS | Encounter Summary ---
:2000 Author Organization [place] Address [address] [place] [address] Care Team Providers Name Role Phone Lita Oseguera Unavailable Unavailable Marija Edgar APRN HEALTH PLAN MANAGER Primary Care Provider [phone] Marija Edgar APRN HEALTH PLAN MANAGER Unavailable Keisha Dotson MD Unavailable Diana Desir [facility] Unavailable Rain Galaviz PA-C Unavailable [phone] Tavia Wyatt MD Unavailable Unavailable Erica Farrell APRN HEALTH PLAN MANAGER Unavailable [phone] Tavia Wyatt MD Unavailable Unavailable Rich Barrett MD Unavailable [phone] Neil Kent MD Unavailable Roney Story DPM Unavailable Erica Farrell APRN HEALTH PLAN MANAGER Unavailable + Diana Desir [facility] Unavailable Encounter Details Date Type Department Care Team Description 04/26/2022 Travel Social History Tobacco Use Types Packs/Day Years [...] week 09/22/2021 How often do you attend mormon or muslim services? Never 09/22/2021 Do you belong to any clubs or organizations such as No 09/22/2021 mormon groups, unions, fraternal or athletic groups, or [...] pay for the very basics like Not v andrey hard 09/22/2021 food, housing, medical care, and [...] place to sleep or slept in a fdc (including now)? Education Answer Date Recorded What [...] have Coronavirus/COVID-19? documented as of this encounter Plan of Treatment Upcoming Encounters Date Type Specialty Care Team Description 04/28/2022 Office Visit Family Practice Anthoyn Doe PA-C [address] [place] [address] (Wo rk) 05/03/2022 Office Visit Dermatology Neil Kent M D [address] [place] [address] (Wo rk) 05/05/2022 Office Visit Optometry [place], [place] [address] [facility] [address] [place] [phone] (Wo rk) 05/11/2022 Virtual Visit Pharm D Diana Desir , [facility] [address] [place], [place] [address] (Wo rk) 05/14/2022 Office Visit Cardiology Livan Sharif MD [address] [place], [place] [address] (Wo rk) 05/31/2022 Office Visit Family Practice Valery Veronica , PA-C [address] [place], [place] [address] (Wo rk) documented as of this encounter Visit Diagnoses Not on filedocumented in this encounter Additional Health Concerns Infection Onset Date Last Indicated Resolved Time Rule Out COVID-19 04/26/2022 04/26/2022 04/26/2022 6:4 7 AM CDT Assessment Noted Time PHQ-9 Depression Total Score: 2 12/18/2021 2:50 PM CDT documented as of this encounter Care Teams Drying Equipment Operator Relationship Specialty Start Date End Date Marija Edgar, PCP - General Nurse Practitioner 04/30/20 ENGINE OILER HEALTH PLAN MANAGER [address] [place] [address] Lita Oseguera Personal Advocate & 02/28/20 Liaison (PAL) Marija Edgar, Assigned PCP 06/08/20 ENGINE OILER HEALTH PLAN MANAGER [address] [place], [place] [phone] Mauri, Melody Neuroscience 06/04/20 MD Keisha Provider [address] [place], [place] [phone] Diana Desir, Pharmacist Pharmacist 04/17/21 [facility] [address] [place], [place] [address] Rain Galaviz Physician Switch Operator Dermatology 04/28/21 ROVERTO Paredes [address] [place] [address] [address] [place], [place] [phone] Tavia Wyatt MD Dermatology 07/14/21 Erica Ochoa Nurse Practitioner Cardiovascular Disease 09/09/21 ARLENE Guidry HEALTH PLAN MANAGER [address] [facility] [address] [place] [address] Tavia Wyatt, Assigned Surgical 11/29/21 MD Provider Rich Barrett Physician Ophthalmology 01/21/22 Gerson Reyes MD [address] [facility] [address] [place], [place] [address] Neil Kent MD MD Dermatology 02/24/22 500 [place], [place] [address] Roney Story, Assigned Musculoskeletal 03/20/22 DPM Provider [address] [facility] [address] [place], [place] [address] Erica Farrell Assigned Heart and 04/03/22 ARLENE Guidry HEALTH PLAN MANAGER Vascular Provider [address] [place] [address] Diana Desir, Assigned MTM Pharmacist 04/07/22 [facility] [address] [place] [address] documented as of this encounter
--- OUTSIDE RECORDS SUMMARY | 2022-04-28 01:05 | XMS_ITS | Encounter Summary ---
:2000 Author Organization [place] Address [address] [place] [address]. [place] [address] Care Team Providers Name Role Phone Lita Oseguera Unavailable Unavailable Marija Edgar APRN SCREENPLAY WRITER Primary Care Provider [phone] Marija Edgar APRN SCREENPLAY WRITER Unavailable Keisha Dotson MD Unavailable Diana Desir [facility] Unavailable Rain Galaviz PA-C Unavailable [phone] Tavia Wyatt MD Unavailable Unavailable Erica Farrell APRN SCREENPLAY WRITER Unavailable [phone] Tavia Wyatt MD Unavailable Unavailable Rich Barrett MD Unavailable [phone] Neil Kent MD Unavailable Roney Story DPM Unavailable Erica Farrell APRN SCREENPLAY WRITER Unavailable + Diana Desir [facility] Unavailable Encounter Details Date Type Department Care Team Description 04/27/2022 [facility] Marija Edgar APRN [facility] [phone] [place] [address] [phone] (Wo rk) Social History Tobacco Use Types Packs/Day Years [...] week 09/22/2021 How often do you attend yazidism or jew services? Never 09/22/2021 Do you belong to any clubs or organizations such as No 09/22/2021 yazidism groups, unions, fraternal or athletic groups, or [...] place to sleep or slept in a custodial (including now)? Education Answer Date Recorded What [...] have Coronavirus/COVID-19? documented as of this encounter Miscellaneous Notes Telephone Encounter - Francine Messer RN - 04/27/2022 3:07 PM CDT Patient hospitalized yesterday for severe Migraine and fever with no etiology Patient calling back because she still has fevers and all of her labs came back negative. Patient ishaving throat discomfort and is wondering if it is possibly strep. Fevers are controlled by tylenol and advil; patient worried about taking too many medications, reassured patient about the medicationsand how they are excreted. HR in ED was 140s; HR is still elevated but around 120; BP is also elevated at 158/75 states she is normally 120/80 Blood cx still pending. Patient requesting in person appointment for tomorrow. Patient scheduled and we discussed when to go back to ED/ to be seen, pt verbalized understanding. Francine Messer RN [facility] documented in this encounter Plan of Treatment Upcoming Encounters Date Type Specialty Care Team Description 04/28/2022 Office Visit [facility] Anthony Doe PA-C [address] [place], [place] [phone] (Wo rk) 05/03/2022 Office Visit Dermatology Neil Kent M D [address] [place], [place] [address] (Jefferson carlson) 05/05/2022 Office Visit Optometry Yeny David, OD [address] [facility] [address] [place] [phone] (Wo aldo) 05/11/2022 Virtual Visit Pharm Diana Eckert , [facility] [address] [place], [place] [address] (Jefferson carlson) 05/14/2022 Office Visit Cardiology Livan Sharif MD [address] [facility] [place] , [facility] [address] [place], [place] [address] (Jefferson carlson) 05/31/2022 Office Visit Family Practice Valery Veronica PA-C [address] [place], [place] [address] (Wo rk) documented as of this encounter Visit Diagnoses Not on filedocumented in this encounter Additional Health Concerns Assessment Noted Time PHQ-9 Depression Total Score: 2 12/18/2021 2:50 PM CDT documented as of this encounter Care Teams Ese Teacher Relationship Specialty Start Date End Date Marija Edgar, PCP - General Nurse Practitioner 04/30/20 SILVERER SCREENPLAY WRITER [address] [place] [address] Lita Oseguera Personal Advocate & 02/28/20 Liaison (PAL) Marija Edgar, Assigned PCP 06/08/20 SILVERER SCREENPLAY WRITER [address] [place], [place] [phone] Mauri, Melody Neuroscience 06/04/20 MD Keisha Provider [address] [place] [address] Diana Desir, Pharmacist Pharmacist 04/17/21 [facility] [address] [place] [address] Rain Galaviz Physician Film Cutter Dermatology 04/28/21 ROVERTO Paredes [address] [facility] [address] [place], [place] [phone] Tavia Wyatt MD Dermatology 07/14/21 Erica Ochoa Nurse Practitioner Cardiovascular Disease 09/09/21 ARLENE Guidry SCREENPLAY WRITER [address] [place], [place] [address] Tavia Wyatt, Assigned Surgical 11/29/21 MD Provider Rich Barrett Physician Ophthalmology 01/21/22 Gerson Reyes MD [address] [facility], CLINIC [address] [place], [place] [phone] Neil Kent MD MD Dermatology 02/24/22 [address] [place], [place] [phone] Roney Story, Assigned Musculoskeletal 03/20/22 DPM Provider [address] [facility] [address] [place], [place] [address] Erica Farrell Assigned Heart and 04/03/22 ARLENE Guidry SCREENPLAY WRITER Vascular Provider [address] [place] [address] Diana Desir, Assigned MTM Pharmacist 04/07/22 [facility] [address] [place], [place] [phone] documented as of this encounter
[2022-04-28 01:06] LABS: Potassium* 3.6 mmol/L (3.6-5.1)
--- OUTSIDE RECORDS SUMMARY | 2022-04-28 01:06 | XMS_ITS | Encounter Summary ---
:2000 Author Organization [place] Address [address] [place] [address] Care Team Providers Name Role Phone Lita Oseguera Unavailable Unavailable Marija Edgar APRN SPEECH LANGUAGE THERAPIST Primary Care Provider [phone] Marija Edgar APRN SPEECH LANGUAGE THERAPIST Unavailable Keisha Dotson MD Unavailable Diana Desir [facility] Unavailable Rain Galaviz PA-C Unavailable [phone] Tavia Wyatt MD Unavailable Unavailable Erica Farrell APRN SPEECH LANGUAGE THERAPIST Unavailable [phone] Tavia Wyatt MD Unavailable Unavailable Rich Barrett MD Unavailable [phone] Neil Kent MD Unavailable Roney Story DPM Unavailable Erica Farrell APRN SPEECH LANGUAGE THERAPIST Unavailable + Diana Desir [facility] Unavailable Reason for Visit CV Testing (Routine) - Closed Specialty Diagnoses / Procedures Referred By Contact Refer red To Contact Diagnoses SVT (supraventricular tachycardia) (H) Galo Burrell MD Procedures Adult Leadless lead network architect 3 to 7 Days ZZHC EXT ECG > 48HR TO 21 DAY RCRD W/CONECT INTL RCRD ZZC EXT ECG > 48HR TO 21 DAY REVIEW AND INTERPRETATN SC EXT ECG > 48HR TO 21 DAY RCRD W/CONECT INTL RCRD [address] [place] EXT ECG > 48HR TO 21 DAY REVIEW AND INTERPRETATN HC EXT ECG > 48HR TO 21 DAY RCRD W/CONECT INTL RCRD [place] [id number] Referral ID Status Reason Start Date Expiration Date Visits Requ ested Visits Authorized [id number] Closed 04/05/2022 1 1 Encounter Details Date Type Department Care Team Description 04/08/2022 Hospital Encounter [facility] Galo Burrell MD [facility] [address] [place] [address] [place] [phone] (Wo rk) [address] [phone] Social History Tobacco Use Types Packs/Day Years [...] week 09/22/2021 How often do you attend mosque or amish services? Never 09/22/2021 Do you belong to any clubs or organizations such as No 09/22/2021 mosque groups, unions, fraternal or athletic groups, or [...] place to sleep or slept in a senior living (including now)? Education Answer Date Recorded What is the highest level of school you have completed or 12 th grade 08/07/2020 the highest degree you have received? Sex Assigned at Date Recorded Female 03/02/2021 5:45 PM CDT COVID-19 Exposure Response Date Recorded In the last 10 days, have you been in contact with No / Unsu re 04/08/2022 2:49 PM CDT someone who was confirmed or suspected to have Coronavirus/COVID-19? documented as of this encounter Medications at Time of Discharge Medication Sig Dispensed Refills Start Date End Date augmented betamethasone Apply up to twice 150 g 11 08/11 dipropionate daily as needed for (DIPROLENE-AF) [...] as needed. documented as of this encounter Plan of Treatment Upcoming Encounters Date Type Specialty Care Team Description 04/28/2022 Office Visit Family Practice Anthony Doe, PA-C [address] [place], [place] [phone] (Wo rk) 05/03/2022 Office Visit Dermatology Neil Kent M D [address] [place], [place] [address] (Wo rk) 05/05/2022 Office Visit [place], [place] [address] [facility] [address] [place], [place] [phone] (Wo rk) 05/11/2022 Virtual Visit Pharm D Diana Desir , [facility] [address] [place], [place] [address] (Wo rk) 05/14/2022 Office Visit Cardiology Livan Sharif MD [address] , [facility] [address] [place], [place] [address] (Wo rk) 05/31/2022 Office Visit Family Practice Valery Veronica , [place] [address] [place], [place] [address] (Wo rk) documented as of this encounter Visit Diagnoses Not on filedocumented in this encounter Additional Health Concerns Assessment Noted Time PHQ-9 Depression Total Score: 2 12/18/2021 2:50 PM CDT documented as of this encounter Care Teams Cut Off Sawyer Relationship Specialty Start Date End Date Marija Edgar PCP - General Nurse Practitioner 04/30/20 ASSOCIATE PROFESSOR OF ART SPEECH LANGUAGE THERAPIST [address] [place], [place] [phone] Lita Oseguera Personal Advocate & 02/28/20 Liaison (PAL) Marija Edgar, Assigned PCP 06/08/20 ASSOCIATE PROFESSOR OF ART SPEECH LANGUAGE THERAPIST [address] [place] [address] Mauri, Assigned Neuroscience 06/04/20 MD Keisha Provider [address] [place], [place] [address] Diana Desir, Pharmacist Pharmacist 04/17/21 [facility] [address] [place], [place] [address] Rain Galaviz Physician Petroleum Geologist Dermatology 04/28/21 ROVERTO Paredes [address] [place] [address] [address] [place], [place] [phone] Tavia Wyatt MD Dermatology 07/14/21 Erica Ochoa Nurse Practitioner Cardiovascular Disease 09/09/21 ARLENE Guidry SPEECH LANGUAGE THERAPIST [address] [place] [address] Tavia Wyatt, Assigned Surgical 11/29/21 MD Provider Rich Barrett Physician Ophthalmology 01/21/22 Gerson Reyes MD [address] [facility], CLINIC [address] [place] [address] Neil Kent MD MD Dermatology 02/24/22 500 [place] [address] Roney Story, Assigned Musculoskeletal 03/20/22 DPM Provider [address] [facility] [address] [place], [place] [phone] Erica Farrell Assigned Heart and 04/03/22 ARLENE Guidry [facility] Vascular Provider [address] [place] [address] Diana Desir, Assigned MTM Pharmacist 04/07/22 [facility] [address] [place], [place] [address] documented as of this encounter
--- OUTSIDE RECORDS SUMMARY | 2022-04-28 01:06 | XMS_ITS | Encounter Summary ---
:2000 Author Organization [facility] Address [address] [place] [address] Care Team Providers Name Role Phone Lita Oseguera Unavailable Unavailable Marija Edgar APRN CHIEF HYDROELECTRIC STATION OPERATOR Primary Care Provider [phone] Marija Edgar APRN CHIEF HYDROELECTRIC STATION OPERATOR Unavailable Keisha Dotson MD Unavailable Galo Burrell MD Unavailable Diana Desir [facility] Unavailable Rain Galaviz PA-C Unavailable [phone] Summer Lara MD Unavailable Tavia Wyatt MD Unavailable Unavailable Johnny Murillo MD Unavailable [phone] Erica Farrell APRN CHIEF HYDROELECTRIC STATION OPERATOR Unavailable [phone] Tavia Wyatt MD Unavailable Unavailable Diana Desir [facility] Unavailable Rich Barrett MD Unavailable [phone] Neil Kent MD Unavailable Reason for Visit Reason Comments Ingrown Toenail Encounter Details Date Type Department Care Team Description 03/12/2022 Office Visit [facility] Roney Story Ing rowing toenail of [facility] DPM left foot, medial Podiatry [address] [facility] (Primary Dx) [address] [place] [address] [phone] (Wo rk) Social History Tobacco Use Types [...] week 09/22/2021 How often do you attend buddhism or moravian services? Never 09/22/2021 Do you belong to any clubs or organizations such as No 09/22/2021 buddhism groups, unions, fraternal or athletic groups, or [...] in contact with No / Unsu re 03/12/2022 10:32 AM CDT someone who was confirmed or suspected to have Coronavirus/COVID-19? documented as of this encounter Last Filed Vital Signs Vital Sign Reading Time Taken Comments Blood Pressure - - Pulse - - Temperature - - Respiratory Rate - - Oxygen Saturation - - Inhaled Oxygen Concentration - - Weight 77.1 kg (170 lb) 03/12/2022 10:57 AM CDT Height 167.6 cm (5' 6) 03/12/2022 10:57 AM CDT Body Mass Index 27.44 03/12/2022 10:57 AM CDT documented in this encounter Patient Instructions Patient InstructionsAbby Dye - 03/12/2022 11:00 AM CDT Thank you for choosing [facility]! [facility] LOCATIONS: [facility] TRIAGE LINE: [phone] APPOINTMENTS: [phone] [place] [address] RADIOLOGY: [phone] SET UP SURGERY: [phone] BILLING QUESTIONS: [phone] [facility] FAX: [phone] [place] [address] INGROWN TOENAIL REMOVAL HOME CARE 1. Keep bandage on until that evening or the day after your procedure. If the bandage falls off, start the soaking process. 2. Some bleeding is normal. If bleeding seems excessive to you, place ice on top of your foot for 15-20 minutes and elevate your foot above heart level. 3. Over the counter pain medication (tylenol / ibuprofen), elevating your foot and ice application is all you will need for pain control. 4. If the bandage feels too tight and your toe is throbbing it is ok to remove the bandage and startsoaking. 5. For one to two weeks, soak your foot twice a day in mild skin friendly soap (dish or hand soap) and warm water for 15 minutes. It is ok to soak your foot for a few minutes to loosen the dressing applied in the clinic. After soaking, blot dry and apply a regular band aid. 6. It is normal to experience some discomfort and redness around the nail for several days followingthe procedure. Drainage will likely appear a red - yellow. This is normal. If your toe is still draining a red - yellow fluid after 2 weeks keep continuing to soak foot another few days. 7. Initial discomfort might last for 2-3 days. You may resume with regular activity as soon as you are comfortable, as long as you keep the wound clean and dry and follow the soaking instruction. It isrecommended that you do not enter public swimming pools/hot tubs while your toe is draining. 8. If you are experiencing worsening pain and redness or notice pus after 2-3 days please contact the clinic. Ask to speak with a triage nurse and they will inform our team of your symptoms and we can advise if a follow up is needed. documented in this encounter Progress Notes Roney Story, MANDEEP - 03/12/2022 11:00 AM CDT ASSESSMENT: Encounter Diagnosis Name Primary? Ingrowing toenail of left foot, medial edge Yes MEDICAL DECISION MAKING: Since her pain has diminished and much of the erythema has resolved, taking a wait and watch approach is reasonable. I explained that with adults, the conservative approach is often not a long-term solution. It can recur. I also offered a partial nail avulsion. She is interested in this. I explained that there is a more definitive procedure, the partial chemical matrixectomy. I consider this contraindicated today, giventhat she is nursing and section. Nail Avulsion Procedure (non permanent removal) The procedure was discussed with the Kim Johnson, including risk of infection, abnormal nail regrowth, and possible need for an additional future nail procedure. Post-procedure home cares were reviewed. These cares are important for preventing infection and aiding in timely healing. Verbal and written consent was obtained. The site was marked and the Time Out called. The base of the left hallux was injected with 2 cc of 2% Lidocaine plain. The toe was then prepped with betadine solution. A tourniquet was applied around the base of the toe for hemostasis. Next the toe was checked for adequate anesthesia. The medial nail was freed from the nail bed and marginal soft tissue attachments with a blunt instrument. A nail splitter was then used to make a longitudinal cut 2mm from the medial nail fold. It was completed, atraumatically, under the eponychium with a noatak blade. Next, the nail edge was firmly grasped with a hemostat and removed in total. The underlying nail bed was inspected and no abnormalities seen. The tourniquet was removed. Bacitracin ointment was applied to the nail bed, followed by a compressive dressing. Kim Johnson tolerated the procedure well. Kim Johnson is instructed to watch for, and call if, increasing redness, drainage, and pain after2-3 days. Post procedure instructions were provided in the After Visit Summary. Disclaimer: This note consists of symbols derived from keyboarding, dictation and/or voice recognition software. As a result, there may be errors in the script that have gone undetected. Please consider this when interpreting information found in this chart. Roney Story DPM, FACFAS, MS [facility] Department of Podiatry/Foot & Ankle Surgery HPI: Kim presents today with a recurrent ingrown toenail involving her left great toe. The current problem has existed for 6+ months. She experiences burning, aching, throbbing and tingling. Pain is worsewith pressure and when infected. Approximately 1 month ago she reports progressive erythema and drainage, as well as significant pain. She she took an oral antibiotic, applied Neosporin and did foot soaks. This approach did significantly help. 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 * Past Medical History: Diagnosis Date ??? Anxiety ??? Chronic kidney disease stones, history of infections ??? Depressive disorder ??? Gastroesophageal reflux disease ??? Psoriasis ??? Seizure (H) 05/02/2019 no seizure since 2017 ??? SVT (supraventricular tachycardia) (H) * * Past Surgical History: Procedure Laterality Date ??? EP ABLATION SVT N/A 08/28/2021 Procedure: EP Ablation SVT; Surgeon: Galo Burrell MD; Location: HEART CARDIAC WET END TESTER ??? ESOPHAGOSCOPY, GASTROSCOPY, DUODENOSCOPY (EGD), COMBINED N/A 06/26/2021 Procedure: ESOPHAGOGASTRODUODENOSCOPY (EGD) (fv); Surgeon: Rey Sheppard MD; Location: GI ??? GENITOURINARY SURGERY kidney * * Current Outpatient Medications Medication Sig Dispense Refill ??? augmented betamethasone dipropionate (DIPROLENE-AF) 0.05 % external ointment Apply up to twice daily as needed for psoriasis on thicker areas of skin. 150 g 11 ??? benzonatate (TESSALON) 100 MG capsule Take 1 capsule (100 mg) by mouth 3 times daily as needed for cough (Patient not taking: Reported on 02/24/2022) 30 capsule 0 ??? fluocinonide (LIDEX) 0.05 % external solution Apply small amount to psoriasis on the scalp. 60 mL 11 ??? levETIRAcetam (KEPPRA) 500 MG tablet Take 1 tablet (500 mg) by mouth daily 90 tablet 3 ??? LORazepam (ATIVAN) 0.5 MG tablet Take 1 tablet (0.5 mg) by mouth daily as needed for anxiety 30 tablet 0 ??? omeprazole (PRILOSEC) [address] capsule Take 1 capsule (40 mg) by mouth daily 90 capsule 3 ??? PARoxetine (PAXIL) 40 MG tablet Take 1 tablet (40 mg) by mouth At Bedtime 90 tablet 1 ??? Vit-Fe Fumarate-FA ( MULTIVITAMIN W/IRON) 27-0.8 MG tablet Take 1 tablet by mouth daily 90 tablet 3 ??? tacrolimus (PROTOPIC) 0.1 % external ointment Apply thin layer to psoriasis on thinner skin up to twice daily as needed. 60 g 11 EXAM: Vitals: Ht 1.676 m (5' 6) Wt 77.1 kg (170 lb) Yes BMI 27.44 kg/m?? BMI: Body mass index is 27.44 kg/m??. Constitutional: Kim Johnson is in no apparent distress, appears well- nourished. Cooperative with history and physical exam. Vascular: Pedal pulses are palpable for both the DP and PT arteries. CFT < 3 sec. No edema. Neuro: Light touch sensation is intact to the L4, L5, S1 distributions No evidence of weakness, spasticity, or contracture in the lower extremities. Derm: There is localized erythema and tenderness along the medial skin fold of the left hallux. No drainage. documented in this encounter Plan of Treatment Upcoming Encounters Date Type Specialty Care Team Description 04/28/2022 Office Visit [facility] Anthony Doe, PAUcheC [address] [place], [place] [phone] (Wo rk) 05/03/2022 Office Visit Dermatology Neil Kent M D [address] [place] [phone] (Wo rk) 05/05/2022 Office Visit Optometry Yeny David, OD [address] [place] [phone] (Wo rk) 05/11/2022 Virtual Visit Pharm D Diana Desir , [facility] [address] [place], [place] [phone] (Wo rk) 05/14/2022 Office Visit Cardiology Livan Sharif MD [address] [facility] [address] [place], [place] [address] (Wo rk) 05/31/2022 Office Visit [facility] Valery Veronica PAUcheC [address] [place], [place] [phone] (Wo rk) documented as of this encounter Procedures Procedure Name Priority Date/Time Associated Diagnosis Comme nts MS REMOVAL OF NAIL Routine 03/12/2022 11:14 AM Ingrowing toena il of PLATE SIMPLE SINGLE CDT left foot, medial edg e documented in this encounter Visit Diagnoses Diagnosis Ingrowing toenail of left foot, medial e dge - Primary documented in this encounter Additional Health Concerns Assessment Noted Time PHQ-9 Depression Total Score: 2 12/18/2021 2:50 PM CDT documented as of this encounter Care Teams Continuous Mining Operator Relationship Specialty Start Date End Date Marija Edgar, PCP - General Nurse Practitioner 04/30/20 TWISTER IN CHIEF HYDROELECTRIC STATION OPERATOR [address] [place] [address] Lita Oseguera Personal Advocate & 02/28/20 Liaison (PAL) Marija Edgar, Assigned PCP 06/08/20 TWISTER IN CHIEF HYDROELECTRIC STATION OPERATOR [address] [place], [place] [phone] Mauri, Assigned Neuroscience 06/04/20 MD Keisha Provider [address] [place], [place] [phone] Galo Burrell MD Assigned Heart and 10/05/20 04/02/22 [address] [facility] Vascular Provider [address] [place] [address] Diana Desir, Pharmacist Pharmacist 04/17/21 [facility] [address] [place] [address] Rain Galaviz Physician Custom Motorcycle Painter Dermatology 04/28/21 ROVERTO Paredes [address] [facility] [place] [address] Summer Lara MD Assigned OBGYN Provider 05/31/21 03/12/[address] [place], [place] [address] Tavia Wyatt MD Dermatology 07/14/21 Johnny Medrano Assigned Musculoskeletal 08/30/21 03/17/22 MD Ish Provider [address] [place], [place] [phone] Erica Farrell Nurse Practitioner Cardiovascular Disease 09/09/21 ARLENE Guidry CHIEF HYDROELECTRIC STATION OPERATOR [address] [place] [address] Tavia Wyatt, Assigned Surgical 11/29/21 MD Provider Diana Desir, Assigned MTM Pharmacist 01/02/22 03/26/22 [facility] [address] [place], [place] [phone] Rich Barrett Physician Ophthalmology 01/21/22 Gerson Reyes MD [address] [facility] [address] [place] [address] Neil Kent MD MD Dermatology 02/24/22 500 [place] [address] documented as of this encounter
--- OUTSIDE RECORDS SUMMARY | 2022-04-28 01:06 | XMS_ITS | Encounter Summary ---
:2000 Author Organization [facility] Address [address] [place] [address] Care Team Providers Name Role Phone Lita Oseguera Unavailable Unavailable Marija Edgar APRN [employer]A D[employer]YZER Primary Care Provider [phone] Marija Edgar APRN [employer]A DIALYZER Unavailable Keisha Dotson MD Unavailable Zachary Burrell MD Unavailable Diana Desir [facility] Unavailable Rain Galaviz PA-C Unavailable [phone] Summer Lara MD Unavailable Tavia Wyatt MD Unavailable Unavailable Johnny Murillo MD Unavailable [phone] Ercia Farrell APRN [employer]A DIALYZER Unavailable [phone] Tavia Wyatt MD Unavailable Unavailable Diana Desir [facility] Unavailable Rich Barrett MD Unavailable [phone] Neil Kent MD Unavailable Reason for Referral CV Testing (Routine) - Closed Specialty Diagnoses / Procedures Referred By Contact Refer red To Contact Diagnoses Paroxysmal supraventricular tachycardia (H) Zachary Burrell MD Procedures Echocardiogram Complete ZZHC TTE W/DOPPLER, COMPLETE ZZHC ECHO COMPLETE W DOPPLER W CONTRAST ZZHC ECHO COMPLETE W DOPPLER W/O CONTRAST ZZ[facility] IV PUSH SINGLE, INITIAL SUBSTANCE ZZ[facility] US GUIDE FOR PERICARDIOCENTESIS [address] [facility] ECHO MYOCARD BX ZZC INJECTION, PERFLUTREN LIPID MICROSPHERES, PER ML ZZHC STATISTIC IV PUSH SINGLE INITIAL SUBSTANCE OH ECHO MYOCARD BX OH INJECTION, PERFLUTREN LIPID MICROSPHERES, PER ML OH TTE W/DOPPLER, [place] [address] OH IV PUSH SINGLE, INITIAL S UBSTANCE OH TTE W/DOPPLER, COMPLETE OH TTE W/DOPPLER, COMPLETE HC US GUIDE FOR PERICARDIOCENTESIS HC ECHO MYOCARD BX HC IV PUSH SINGLE, INITIAL SUBSTANCE HC STATISTIC IV PUSH SINGLE INITIAL SUBSTANCE HC ECHO COMPLETE W DOPPLER W CONTRAST HC ECHO COMPLETE W DOPPLER W/O CONTRAST Referral ID Status Reason Start Date Expiration Date Visits Requ ested Visits Authorized [id number] Closed 02/26/2022 02/26/2023 1 1 V Testing (Routine) - Closed Specialty Diagnoses / Procedures Referred By Contact Refer red To Contact Diagnoses Paroxysmal supraventricular tachycardia (H) Palpitations Zachary Burrell MD Procedures Adult Leadless colliery clerk 8 to 14 Days ZZHC EXT ECG > 48HR TO 21 DAY RCRD W/CONECT INTL RCRD ZZC EXT ECG > 48HR TO 21 DAY REVIEW AND INTERPRETATN OH EXT ECG > 48HR TO 21 DAY RCRD W/CONECT INTL RCRD [address] OH EXT ECG > 48HR TO 21 DAY REVIEW AND INTERPRETATN HC EXT ECG > 48HR TO 21 DAY RCRD W/[place] [address] Referral ID Status Reason Start Date Expiration Date Visits Requ ested Visits Authorized [id number] Closed 02/26/2022 02/26/2023 1 1 Reason for Visit Reason Onset Date Comments Symptoms 02/24/2022 Heart feels weird Encounter Details Date Type Department Care Team Description 02/24/2022 Telephone [facility] Heart Naheed Burrell MD Symptoms (Heart feels Clinic [place] [address]) [address] [facility] [address] [facility] [address] [place] [address] [place] [phone] Social History Tobacco Use Types Packs/Day Years [...] week 09/22/2021 How often do you attend religious or nondenominational services? Never 09/22/2021 Do you belong to any clubs or organizations such as No 09/22/2021 religious groups, unions, fraternal or athletic groups, or [...] place to sleep or slept in a skilled nursing (including now)? Education Answer Date Recorded What is the highest level of school you have completed or 12 th grade 08/07/2020 the highest degree you have received? Sex Assigned at Date Recorded Female 03/02/2021 5:45 PM CDT COVID-19 Exposure Response Date Recorded In the last 10 days, have you been in contact with No / Unsu re 02/24/2022 1:22 PM CDT someone who was confirmed or suspected to have Coronavirus/COVID-19? documented as of this encounter Miscellaneous Notes Telephone Encounter - Margaret Rendon RN - 02/26/2022 10:40 AM CDT Patient called back. Reviewed with her that ok for echo and leadless monitor. Orders placed in epic.Informed patient that scheduling will call her to set this up. Patient provided verbal understanding. VJ Kennedy Telephone Encounter - Joanne Portillo RN - 02/24/2022 2:44 PM CDT 02/24/22 Attempted to call pt but reached VM. JOHNSON and requested callback. KHerroRN 244 pm Telephone Encounter - Zachary Burrell MD - 02/24/2022 2:09 PM CDT ok Telephone Encounter - Joanne Portillo RN - 02/24/2022 1:12 PM CDT 02/24/22 Pt called to report that for the past 2 weeks she has been experiencing more palpitations , especially during physical activities. Her chest also has feelings of tightness and she has some SOB during these episodes and is wondering if her SVT is coming back. . She recently started a new job sostress has been increased .Pt does not have financial resources to purchase an [employer] Watch or [employer] device . Pt is wondering about a 2 week monitor and also if she needs repeat Echo . Pt also stated for the past 2 days she has been feeling under the weather, chills, low grade temp, SOB and body aches. Explained that this can be due to viral infection as her baby daughter now goes [employer]. Encouraged to monitor sx and temp and to follow up w PCP if no improvement . Will route update to Dr Burrell and call pt back w recommendations Pt voiced understanding and agreement with plan. KHerroRN 120 pm Telephone Encounter - Kathy Coppola - 02/24/2022 12:33 PM CDT [facility] Call Center Phone Message May a detailed message be left on voicemail: yes Reason for Call: Symptoms or Concerns If patient has red-flag symptoms, warm transfer to triage line Current symptom or concern: Pt calling to report that her heart feels weird intermittently. She isnot currently symptomatic at the time of the call. She wasn't able to really describe it. She deniedchest pain and is hoping to get a Monitor ordered as soon as possible. She mentioned it was feeling like it was prior to her ablation and is wondering if her SVT is coming back. Pt declined Triage Symptoms have been present for: 1-2 week(s) Has patient previously been seen for this? Yes By : Erica Farrell Date: 09/22/2021 Are there any new or worsening symptoms? No Action Taken: Message routed to: Other: Cardiology Travel Screening: Not Applicable documented in this encounter Plan of Treatment Upcoming Encounters Date Type Specialty Care Team Description 04/28/2022 Office Visit Family Practice Anthony Doe, PAUcheC [address] [place], [place] [phone] (Wo rk) 05/03/2022 Office Visit Dermatology Neil Kent M D [address] [place], [place] [phone] (Wo rk) 05/05/2022 Office Visit Optometry Yeny David, OD [address] [facility] [address] [place] [phone] (Wo rk) 05/11/2022 Virtual Visit Pharm D Diana Desir , [facility] [address] [place] [address] (Wo rk) 05/14/2022 Office Visit Cardiology Livan Sharif MD [address] [place] [address] (Wo rk) 05/31/2022 Office Visit Family Practice Valery Veronica PABaldo [address] [place], [place] [phone] (Wo rk) documented as of this encounter Results LEADLESS HIGH VOLTAGE ELECTRICIAN APPLICATION AND INTERP 8 TO 14 DAYS (03/26/2022 8:12 AM CDT) Anatomical Region Laterality Modality Other Specimen (Source) Anatomical Location Collection Method / Collectio n Time Received Time / Laterality Volume Narrative This result has an attachment that is no t available. Zachary Burrell MD CV CARDIAC SERVICES ORDERABL ES ECHO COMPLETE (03/26/2022 8:02 AM CDT) athologist Signature LVEF 55% CARDIOLOGY RESULTS Anatomical Region Laterality Modality Echocardiography Specimen (Source) Anatomical Collection Method Collection Time Re ceived Time Location / / Volume Laterality 03/26/2022 7:39 AM CDT Narrative 03/26/2022 8:36 AM CDT [id number]^ROGER^Z[facility] Echocardiography Laboratory [address] [place] [address] Name: KIM CLARK : 2000 Study Date: 03/26/2022 07:39 AM Age: 21 yrs Gender: Female Patient Location: [facility] Reason For Study: Paroxysmal supraventri cular tachycardia [...] Procedure Note Servando Schmidt MD - [id number]^ROGER^[facility] [address] [place] [address] Name: KIM CLARK : 2000 Study Date: 03/26/2022 07:39 AM Age: 21 yrs Gender: Female Patient Location: [facility] Reason For Study: Paroxysmal supraventri cular tachycardia (H) Ordering Physician: ZACHARY BURRELL Referring Physician: Marija Edgar Performed By: Reanan Fraire BSA: 1.9 m2 Height: 66 in [...] AM Zachary Burrell MD CV ECHO ORDERABLES documented in this encounter Visit Diagnoses Diagnosis Paroxysmal atrial fibrillation (H) - Peyton diann Atrial fibrillation Paroxysmal supraventricular tachycardia (H) Paroxysmal supraventricular tachycardia Palpitations Paroxysmal supraventricular tachycardia (H) Paroxysmal supraventricular tachycardia documented in this encounter Additional Health Concerns Infection Onset Date Last Indicated Resolved Time Rule Out COVID-19 02/24/2022 02/24/2022 02/25/2022 1:0 8 PM CDT Assessment Noted Time PHQ-9 Depression Total Score: 2 12/18/2021 2:50 PM CDT documented as of this encounter Care Teams Economic Developer Relationship Specialty Start Date End Date Marija Edgar, PCP - General Nurse Practitioner 04/30/20 SUPERVISOR LIVESTOCK YARD [employer]ER [address] [place] [address] Lita Oseguera Personal Advocate & 02/28/20 Liaison (PAL) Marija Edgar, Assigned PCP 06/08/20 SUPERVISOR LIVESTOCK YARD [employer] [address] [place] [address] Mauri, Assigned Neuroscience 06/04/20 MD Keisha Provider [address] [place], [place] [address] Zachary Burrell MD Assigned Heart and 10/05/20 04/02/22 [address] Vascular Provider [address] [place] [address] Diana Desir, Pharmacist Pharmacist 04/17/[address] [facility] [address] [place], [place] [phone] Rain Galaviz Physician Undergraduate Advisor Dermatology 04/28/21 ROVERTO Paredes [address] [facility] [address] [facility] [address] [facility] [place] [place] [phone] Summer Lara MD Assigned OBGYN Provider 05/31/21 03/12/[address] [place] [address] Tavia Wyatt MD Dermatology 07/14/21 Johnny Medrano Assigned Musculoskeletal 08/30/21 03/17/22 MD Ish Provider [address] [place], [place] [phone] Erica Farrell Nurse Practitioner Cardiovascular Disease 09/09/21 ARLENE Guidry [employer] [address] [facility] [address] [place], [place] [address] Tavia Wyatt, Assigned Surgical 11/29/21 MD Provider Diana Desir, Assigned MTM Pharmacist 01/02/22 03/26/[address] [facility] [facility] [address] [place], [place] [address] Rich Brarett Physician Ophthalmology 01/21/22 Gerson Reyes MD [address] [facility] [address] [place], [place] [phone] Neil Kent MD MD Dermatology 02/24/22 500 [place] [address] documented as of this encounter
--- OUTSIDE RECORDS SUMMARY | 2022-04-28 01:06 | XMS_ITS | Encounter Summary ---
:2000 Author Organization [place] Address [address] [place] [address] Care Team Providers Name Role Phone Lita Oseguera Unavailable Unavailable Marija Edgar APRN CAREER DEVELOPMENT DIRECTOR Primary Care Provider [phone] Marija Edgar APRN CAREER DEVELOPMENT DIRECTOR Unavailable Keisha Dotson MD Unavailable Diana Desir [facility] Unavailable Rain Galaviz PA-C Unavailable [phone] Tavia Wyatt MD Unavailable Unavailable Erica Farrell APRN CAREER DEVELOPMENT DIRECTOR Unavailable [phone] Tavia Wyatt MD Unavailable Unavailable Rich Barrett MD Unavailable [phone] Neil Kent MD Unavailable Roney Story DPM Unavailable Erica Farrell APRN CAREER DEVELOPMENT DIRECTOR Unavailable + Diana Desir [facility] Unavailable Reason for Visit Reason Onset Date Comments Results 04/16/2022 Ziopatch monitor Encounter Details Date Type Department Care Team Description 04/16/2022 [facility] Douglas MD Results ([facility] [address], monitor ) [address] [facility] [address] [facility] [address] [place] [address] [place] [address] Social History Tobacco Use [...] week 09/22/2021 How often do you attend alevism or pentecostal services? Never 09/22/2021 Do you belong to any clubs or organizations such as No 09/22/2021 alevism groups, unions, fraternal or athletic groups, or [...] place to sleep or slept in a snf (including now)? Education Answer Date Recorded What [...] this encounter Miscellaneous Notes Telephone Encounter - Alexus Avalos RN - 04/27/2022 6:21 PM CDT Able to finally connect with pt and went over the two ZP that she had done. Pt is aware that she hadno SVT. Did make pt aware that she did have rare PVC's on each monitor, but that these are benign. Pt has been not feeling well and did go to ER yesterday for fever and migraine. Pt was given 2 liter of fluid and had many labs completed of which BC are still pending. Pt will see PCP tomorrow. As for monitor we went through looking at the different strips and one that showed a PVC, so that pt could see, one that showed artifact. Pt does state that there are times that her heart races, but yesterday the rate stayed up there. Did discuss the if her HR did not come down they would have not let her go home with her HR in the 140's, they would have also treated that. Discussed also getting and apple watch that can do EKG's or a Kardia device. Pt has a bit of stress right now as her father recently had a stroke. Pt has made and OV with Dr Sharif as she was recommenced to see another Cardilogist. Pt really likes Dr Burrell, but did tell her that he was retiring a the end of the year. Pt to call with any issues or questions. Joe Telephone Encounter - Margaret Rendon RN - 04/20/2022 3:56 PM CDT My chart message sent to patient. VJ Kennedy Telephone Encounter - Alexus Avalos RN - 04/20/2022 9:36 AM CDT Pt returned call yesterday afternoon. LM now asking pt to call back. Joe Telephone Encounter - Alexus Avalos RN - 04/16/2022 4:52 PM CDT LM for pt to call back, but did let pt know that ZP did no show any SVT. JNelsonRN Telephone Encounter - Janett Fragoso - 04/16/2022 9:01 AM CDT [facility] Call Center Phone Message May a detailed message be left on voicemail: yes Reason for Call: Other: Patient called looking to discuss her ziopatch monitor results. Please call patient back to further discuss, thank you. Action Taken: Message routed to: Other: Cardiology Travel Screening: Not Applicable Thank you! [facility] documented in this encounter Plan of Treatment Upcoming Encounters Date Type Specialty Care Team Description 04/28/2022 Office Visit Family Practice Anthony Doe, ROVERTO [address] [place], [place] [phone] (Wo rk) 05/03/2022 Office Visit Dermatology Neil Kent M D [address] [place], [place] [address]35 (Wo rk) 05/05/2022 Office Visit Optometry Yeny David, OD [address] [facility] [address] [place] [phone] (Wo rk) 05/11/2022 Virtual Visit Pharm D Diana Desir , [facility] [address] [place], [place] [address] (Wo rk) 05/14/2022 Office Visit Cardiology Livan Sharif MD [address] [facility] [address] [place], [place] [address] (Wo rk) 05/31/2022 Office Visit Family Practice Valery Veronica PA-C [address] [place], [place] [address] (Wo rk) documented as of this encounter Visit Diagnoses Not on filedocumented in this encounter Additional Health Concerns Infection Onset Date Last Indicated Resolved Time Rule Out COVID-19 04/26/2022 04/26/2022 04/26/2022 6:4 7 AM CDT Assessment Noted Time PHQ-9 Depression Total Score: 2 12/18/2021 2:50 PM CDT documented as of this encounter Care Teams Multimedia Manager Relationship Specialty Start Date End Date Marija Edgar, PCP - General Nurse Practitioner 04/30/20 CHILD ATTENDANT CAREER DEVELOPMENT DIRECTOR [address] [place], [place] [phone] Lita Oseguera Personal Advocate & 02/28/20 Liaison (PAL) Marija Edgar, Assigned PCP 06/08/20 CHILD ATTENDANT CAREER DEVELOPMENT DIRECTOR [address] [place] [address] Mauri, Melody Neuroscience 06/04/20 MD Keisha Provider [address] [place] [address] Diana Desir, Pharmacist Pharmacist 04/17/21 [facility] [address] [place] [address] Rain Galaviz Physician Entry Level Marketing Representative Dermatology 04/28/21 ROVERTO Paredes [address] [facility] [place] [phone] Tavia Wyatt MD Dermatology 07/14/21 Erica Ochoa Nurse Practitioner Cardiovascular Disease 09/09/21 ARLNEE Guidry CAREER DEVELOPMENT DIRECTOR [address] [place] [address] Tavia Wyatt, Assigned Surgical 11/29/21 MD Provider Rich Barrett Physician Ophthalmology 01/21/22 Gerson Reyes MD [address] [facility] [address] [place] [address] Neil Kent MD MD Dermatology 02/24/22 [address] [place] [address] Roney Story, Assigned Musculoskeletal 03/20/22 DPM Provider [address] [facility] [address] [place] [address] Erica Farrell Assigned Heart and 04/03/22 ARLENE Guidry CAREER DEVELOPMENT DIRECTOR Vascular Provider [address] [place], [place] [phone] Diana Desir, Assigned MTM Pharmacist 04/07/22 [facility] [address] [place], [place] [phone] documented as of this encounter
--- OUTSIDE RECORDS SUMMARY | 2022-04-28 01:06 | XMS_ITS | Encounter Summary ---
:2000 Author Organization [place] Address [address] [place] [address] Care Team Providers Name Role Phone Lita Osgeuera Unavailable Unavailable Marija Edgar APRN ROTOR BALANCER Primary Care Provider Marija Edgar APRN ROTOR BALANCER Unavailable Keisha Dotson MD Unavailable Galo Burrell MD Unavailable Diana Desir [facility] Unavailable Rain Galaviz PA-C Unavailable [phone] Summer Lara MD Unavailable Tavia Wyatt MD Unavailable Unavailable Johnny Murillo MD Unavailable [phone] Erica Farrell APRN ROTOR BALANCER Unavailable [phone] Tavia Wyatt MD Unavailable Unavailable Diana Desir [facility] Unavailable Rich Barrett MD Unavailable [phone] Neil Kent MD Unavailable Roney StoryM Unavailable Erica Farrell APRN ROTOR BALANCER Unavailable [phone] Diana Desir [facility] Unavailable Reason for Visit Reason Comments Medication Therapy Management Encounter Details Date Type Department Care Team Description 03/09/2022 Virtual Visit [facility] Diana Desir, Anxi baileey (Primary Dx); Clinic [facility] Moderate major depression (H) [address] [address] [phone] (Wo rk) Social History Tobacco Use Types [...] week 09/22/2021 How often do you attend hinduism or sabianist services? Never 09/22/2021 Do you belong to any clubs or organizations such as No 09/22/2021 hinduism groups, unions, fraternal or athletic groups, or [...] minutes do you engage in exercise at is 10 min 09/22/2021 level? Stress Answer [...] place to sleep or slept in a usp (including now)? Education Answer Date Recorded What is the highest level of school you have completed or 12 th grade 08/07/2020 the highest degree you have received? Sex Assigned at Date Recorded Female 03/02/2021 5:45 PM CDT COVID-19 Exposure Response Date Recorded In the last 10 days, have you been in contact with No / Unsu re 03/26/2022 7:26 AM CDT someone who was confirmed or suspected to have Coronavirus/COVID-19? documented as of this encounter Patient Instructions Patient InstructionsWDiana nuñez RP - 03/09/2022 3:30 PM CDT Recommendations from today's MTM visit: 1. No changes, continue paroxetine 40 mg at bedtime. 2. Okay to try half tablet of lorazepam instead of a full tablet when you need it. It was great speaking with you today. I value your experience and would be very thankful for your time in providing feedback in our clinic survey. In the next few days, you may receive an email or textmessage from [employer] with a link to a survey related to your ???clinical pharmacist. To schedule another MTM appointment, please call the clinic directly or you may call the MTM scheduling line at [phone] or toll-free at . My Clinical Pharmacist's contact information: Please feel free to contact me with any questions or concerns you have. Diana Desir, PharmD, BCACP Medication Therapy Management Provider, [facility] documented in this encounter Progress Notes Diana Desir RPH - 03/09/2022 3:30 PM CDT Medication Therapy Management (MTM) Encounter ASSESSMENT: Medication Adherence/Access: No issues identified Anxiety/Depression: Improved, has decreased use of lorazepam recently. Continue to monitor with no medication changes today. Pharmacokinetic Gene Variants Gene Phenotype Notable Medications Impacted CYP2C9 Intermediate Metabolizer *1/*2 fluoxetine MTHFR Reduced Conversion Pharmacodynamic Gene Variants Gene Phenotype Notable Medications Impacted SLC6A4 Intermediate Response Sertraline and other SSRIs ADRA2A Moderately Reduced Response PLAN: 1. No changes, continue paroxetine 40 mg at bedtime. Follow-up: Return in about 2 months (around 05/09/2022) for Medication Therapy Management Pharmacist. SUBJECTIVE/OBJECTIVE: Kim Johnson is a 21 year old female called for a follow-up visit. Today's visit is a follow-up MTM visit from 02/02. Reason for visit: paroxetine follow-up Tobacco: She reports that she quit smoking about 2 years ago. Her smoking use included other. She smoked 1.00 pack per day. She has never used smokeless tobacco. Alcohol: not currently using Medication Adherence/Access: no issues reported Anxiety/Depression: Current medications include: paroxetine 40 mg daily at bedtime and lorazepam 0.5mg as needed (minimizing use, needing about 1-2x weekly lately). Doing well and better with paroxetine. Despite a lot going, anxiety and depression is okay and not worse. Improved now vs 2-3 months agoand even last month. No more panics and can calm herself out of one better. Feels higher dose is helping more than lower dose. Overthinks a lot, worries a lot but some improvement she's seen this month. Still . no side effects so far from paroxetine except some fatigue. Lorazepam really helps for panic when needing, is going to try a half tablet next. Illnesses lately, ingrown toenail. 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 Following therapist regularly. Past med trial: Buspirone (made her feel very weird, suicidal thoughts she thinks) Sertraline (obessive about certain things and ineffective after being on for so long on 200 mg/day) PHQ 03/02/2021 04/02/2021 12/18/2021 PHQ-9 Total Score 2 2 2 Q9: Thoughts of better off /self-harm past 2 weeks Not at all Not at all Not at all KALYN-7 SCORE 03/02/2021 04/02/2021 12/18/2021 Total Score 4 (minimal anxiety) 4 (minimal anxiety) 5 (mild anxiety) Total Score 4 4 5 Today's Vitals: none I spent 10 minutes with this patient today. All changes were made via collaborative practice agreement with Marija Edgar APRN CNP. A copy of the visit note was provided to the patient's provider(s). The patient was sent via [employer] a summary of these recommendations. Diana Desir PharmD Medication Therapy Management Provider, [facility] Pager: [phone] Telemedicine Visit Details Type of service: Telephone visit Start Time: 3:36 PM End Time: 3:46 PM Originating Location (patient location): Home Distant Location (provider location): [facility] Medication Therapy Recommendations No medication therapy recommendations to display documented in this encounter Plan of Treatment Upcoming Encounters Date Type Specialty Care Team Description 04/28/2022 Office Visit Family Practice Anthony Doe, PAUcheC [address] [place], [place] [phone] (Wo rk) 05/03/2022 Office Visit Dermatology Neil Kent M D [address] [place], [place] [phone] (Wo rk) 05/05/2022 Office Visit Optometry Yeny David, OD [address] [facility] [place] [address] (Wo rk) 05/11/2022 Virtual Visit Pharm D Diana Desir [facility] [address] [place], [place] [address] (Wo rk) 05/14/2022 Office Visit Cardiology Livan Sharif MD [address] [facility] [address] [place], [place] [address] (Wo rk) 05/31/2022 Office Visit Family Practice Valery Veronica PAUcheC [address] [place], [place] [phone] (Wo rk) documented as of this encounter Visit Diagnoses Diagnosis Anxiety - Primary Anxiety state, unspecified Moderate major depression (H) Major depressive disorder, single episod e, moderate documented in this encounter Additional Health Concerns Assessment Noted Time PHQ-9 Depression Total Score: 2 12/18/2021 2:50 PM CDT documented as of this encounter Care Teams Log Roller Relationship Specialty Start Date End Date Marija Edgar, PCP - General Nurse Practitioner 04/30/20 AREA COORDINATOR ROTOR BALANCER [address] [place] [address] Lita Oseguera Personal Advocate & 02/28/20 Liaison (PAL) Marija Edgar, Assigned PCP 06/08/20 AREA COORDINATOR ROTOR BALANCER [address] [place] [address] Mauri, Assigned Neuroscience 06/04/20 MD Keisha Provider 9[address] [place], [place] [address] Galo Burrell MD Assigned Heart and 10/05/20 04/02/22 6[address] [facility] Vascular Provider [address] [place] [address] Diana Desir, Pharmacist Pharmacist 04/17/21 [facility] [address] [place], [place] [address] Rain Galaviz Physician Laboratory Sampler Dermatology 04/28/21 ROVERTO Paredes [address] [place] [address] DR [address] [place], [place] [phone] Summer Lara MD Assigned OBGYN Provider 05/31/21 03/12/[address] [place], [place] [phone] Tavia Wyatt MD Dermatology 07/14/21 Johnny Medrano Assigned Musculoskeletal 08/30/21 03/17/22 MD Ish Provider [address] [place], [place] [phone] Erica Farrell Nurse Practitioner Cardiovascular Disease 09/09/21 ARLENE Guidry ROTOR BALANCER [address] [facility] [address] [place], [place] [address] Tavia Wyatt, Assigned Surgical 11/29/21 MD Provider Diana Desir, Assigned MTM Pharmacist 01/02/22 03/26/22 [facility] [address] [place] [address] Rich Barrett Physician Ophthalmology 01/21/22 Gerson Reyes MD 516 [facility] [address] [place] [address] Neil Kent MD MD Dermatology 02/24/22 [address] [place], [place] [phone] Roney Story, Assigned Musculoskeletal 03/20/22 DPM Provider [address] [facility] [address] [place] [address] Erica Farrell Assigned Heart and 04/03/22 ARLENE Guidry ROTOR BALANCER Vascular Provider 1700 [place] [address] Diana Desir, Assigned MTM Pharmacist 04/07/22 [facility] [address] [place] [address] documented as of this encounter
--- OUTSIDE RECORDS SUMMARY | 2022-04-28 01:06 | XMS_ITS | Encounter Summary ---
:2000 Author Organization [place] Address [address] [place] [address] Care Team Providers Name Role Phone Lita Oseguera Unavailable Unavailable Marija Edgar APRN NIKE ATHLETE Primary Care Provider Marija Edgar APRN NIKE ATHLETE Unavailable Keisha Dotson MD Unavailable Galo Burrell MD Unavailable Diana Desir [facility] Unavailable Rain Galaviz PA-C Unavailable [phone] Tavia Wyatt MD Unavailable Unavailable Erica Farrell APRN NIKE ATHLETE Unavailable [phone] Tavia Wyatt MD Unavailable Unavailable Diana Desir [facility] Unavailable Rich Barrett MD Unavailable Neil Kent MD Unavailable Roney StoryM Unavailable Encounter Details Date Type Department Care Team Description 03/26/2022 Travel Social History Tobacco Use Types Packs/Day [...] week 09/22/2021 How often do you attend confucianism or restorationist services? Never 09/22/2021 Do you belong to any clubs or organizations such as No 09/22/2021 confucianism groups, unions, fraternal or athletic groups, or [...] place to sleep or slept in a care home (including now)? Education Answer Date Recorded What [...] Office Visit Family Practice Anthony Doe PA-C [address] [facility] [place] [address] (Wo rk) 05/03/2022 Office Visit Dermatology Neil Kent M D [address] [place] [address] (Wo rk) 05/05/2022 Office Visit Optometry Yeny David, OD [address] [facility] [address] [place] [phone] (Wo rk) 05/11/2022 Virtual Visit Pharm D Diana Desir , [facility] [address] [place], [place] [address] (Wo rk) 05/14/2022 Office Visit Cardiology Livan Sharif MD [address], [place] [address] [place] [address] (Wo rk) 05/31/2022 Office Visit Family Practice Valery Veronica , PA-C [address] [place], [place] [phone] (Wo rk) documented as of this encounter Visit Diagnoses Not on filedocumented in this encounter Additional Health Concerns Assessment Noted Time PHQ-9 Depression Total Score: 2 12/18/2021 2:50 PM CDT documented as of this encounter Care Teams Mail Carrier Relationship Specialty Start Date End Date Marija Edgar, PCP - General Nurse Practitioner 04/30/20 SCHOOL HEALTH ASSISTANT NIKE ATHLETE [address] [place] [address] Lita Oseguera Personal Advocate & 02/28/20 Liaison (PAL) Marija Edgar, Assigned PCP 06/08/20 SCHOOL HEALTH ASSISTANT NIKE ATHLETE [address] [place], [place] [phone] Mauri, Melody Neuroscience 06/04/20 MD Keisha Provider 9 [place], [place] [address] Galo Burrell MD Assigned Heart and 10/05/20 04/02/[address] Vascular Provider [address] [place] [address] Diana Desir, Pharmacist Pharmacist 04/17/21 [facility] [address] [place], [place] [address] Rain Galaviz Physician Senior Mechanical Engineer Dermatology 04/28/21 ROVERTO Paredes [address] [place] [address] [address] [facility] [place] [phone] Tavia Wyatt MD Dermatology 07/14/21 Erica Ochoa Nurse Practitioner Cardiovascular Disease 09/09/21 ARLENE Guidry NIKE ATHLETE [address] [place] [address] Tavia Wyatt, Assigned Surgical 11/29/21 MD Provider Diana Desir, Assigned MTM Pharmacist 01/02/22 03/26/22 [facility] 30[address] [place], [place] [address] Rich Barrett Physician Ophthalmology 01/21/22 Gerson Reyes MD [address] [facility] [address] [place], [place] [phone] Neil Kent MD MD Dermatology 02/24/22 500 [place], [place] [phone] Roney Story Assigned Musculoskeletal 03/20/22 MANDEEP Aguila Provider [address] [facility] [address] [place] [address] documented as of this encounter
--- OUTSIDE RECORDS SUMMARY | 2022-04-28 01:06 | XMS_ITS | Encounter Summary ---
:2000 Author Organization [place] Address [address] [place] [address] Care Team Providers Name Role Phone Lita Oseguera Unavailable Unavailable Marija Edgar APRN COATING MIXER TENDER Primary Care Provider [phone] Marija Edgar APRN COATING MIXER TENDER Unavailable Keisha Dotson MD Unavailable Galo Burrell MD Unavailable Diana Desir [facility] Unavailable Rain Galaviz PA-C Unavailable [phone] Tavia Wyatt MD Unavailable Unavailable Johnny Murillo MD Unavailable [phone] Erica aFrrell APRN COATING MIXER TENDER Unavailable [phone] Tavia Wyatt MD Unavailable Unavailable Diana Desir [facility] Unavailable Rich Barrett MD Unavailable [phone] Neil Kent MD Unavailable Encounter Details Date Type Department Care Team Description 03/17/2022 [facility] Ear Nose Bassem Vera MD and Thro[facility] Clinic [address] [place] [address] [place] [address] 4th Floor [place] [phone] Social History Tobacco Use Types Packs/Day Years [...] week 09/22/2021 How often do you attend episcopal or rastafari services? Never 09/22/2021 Do you belong to any clubs or organizations such as No 09/22/2021 episcopal groups, unions, fraternal or athletic groups, or [...] place to sleep or slept in a correction (including now)? Education Answer Date Recorded What [...] this encounter Miscellaneous Notes Telephone Encounter - Chuy Aguillon - 03/17/2022 8:15 AM CDT LVM that patient was scheduled incorrectly. Dr. Vera is a Glue Mill Operator and does not see for throat issues. Patient has 3 options Paola Christopher in return slot Dr. Gan in new slot Another [facility] Gave call center number documented in this encounter Plan of Treatment Upcoming Encounters Date Type Specialty Care Team Description 04/28/2022 Office Visit Family Practice Anthony Doe, PA-C [address] [place], [place] [phone] (Wo rk) 05/03/2022 Office Visit Dermatology Neil Kent M D [address] [place] [address] (Wo rk) 05/05/2022 Office Visit Optometry Yeny David, OD [address] [facility] [address] [place], [place] [phone] (Wo rk) 05/11/2022 Virtual Visit Pharm D Diana Desir , [facility] [address] [place], [place] [address] (Wo rk) 05/14/2022 Office Visit Cardiology Livan Sharif MD 6[address] [facility] [address] [place], [place] [address] (Wo rk) 05/31/2022 Office Visit Family Practice Valery Veronica , PAUcheC 909 [place], [place] [address] (Wo rk) documented as of this encounter Visit Diagnoses Not on filedocumented in this encounter Additional Health Concerns Assessment Noted Time PHQ-9 Depression Total Score: 2 12/18/2021 2:50 PM CDT documented as of this encounter Care Teams Cash Management Officer Relationship Specialty Start Date End Date Marija Edgar, PCP - General Nurse Practitioner 04/30/20 ETHERNET NETWORK ARCHITECT COATING MIXER TENDER [address] [place], [place] [phone] Lita Oseguera Personal Advocate & 02/28/20 Liaison (PAL) Marija Edgar, Assigned PCP 06/08/20 ETHERNET NETWORK ARCHITECT COATING MIXER TENDER [address] [place], [place] [phone] Muari, Assigned Neuroscience 06/04/20 MD Keisha Provider 909 [place], [place] [address] Galo Burrell MD Assigned Heart and 10/05/20 04/02/[address] Vascular Provider [address] [place], [place] [address] Diana Desir, Pharmacist Pharmacist 04/17/21 [facility] 3033 [place] [address] Rain Galaviz Physician Popped Corn Oven Attendant Dermatology 04/28/21 ROVERTO Paredes [address] [place] [address] [place] [address] Tavia Wyatt MD Dermatology 07/14/21 Johnny Medrano Assigned Musculoskeletal 08/30/21 03/17/22 MD Ish Provider [address] [place], [place] [address] Erica Farrell Nurse Practitioner Cardiovascular Disease 09/09/21 ARLENE Guidry COATING MIXER TENDER [address] [place] [address] Tavia Wyatt, Assigned Surgical 11/29/21 MD Provider Diana Desir, Assigned MTM Pharmacist 01/02/22 03/26/22 [facility] [address] [place], [place] [address] Rich Barrett Physician Ophthalmology 01/21/22 Gerson Reyes MD 516 [facility] 9[address] [place] [address] Neil Kent MD MD Dermatology 02/24/[address] [place] [address] documented as of this encounter
--- OUTSIDE RECORDS SUMMARY | 2022-04-28 01:06 | XMS_ITS | Encounter Summary ---
:2000 Author Organization [facility] Address [address] [place] [address] Care Team Providers Name Role Phone Lita Oseguera Unavailable Unavailable Marija Edgar APRN ACQUISITION CONSULTANT Primary Care Provider [phone] Marija Edgar APRN ACQUISITION CONSULTANT Unavailable Keisha Dotson MD Unavailable Galo Burrell MD Unavailable Diana Desir [facility] Unavailable Rain Galaviz PA-C Unavailable [phone] Summer Lara MD Unavailable Tavia Wyatt MD Unavailable Unavailable Johnny Murillo MD Unavailable [phone] Erica Farrell LOAN OFFICER ACQUISITION CONSULTANT Unavailable [phone] Tavia Wyatt MD Unavailable Unavailable Diana Desir [facility] Unavailable Rich Barrett MD Unavailable [phone] Neil Kent MD Unavailable Encounter Details Date Type Department Care Team Description 03/08/2022 Travel Social History Tobacco Use Types Packs/Day [...] week 09/22/2021 How often do you attend gnosticism or mu-ism services? Never 09/22/2021 Do you belong to any clubs or organizations such as No 09/22/2021 gnosticism groups, unions, fraternal or athletic groups, or [...] place to sleep or slept in a mcc (including now)? Education Answer Date Recorded What is the highest level of school you have completed or 12 th grade 08/07/2020 the highest degree you have received? Sex Assigned at Date Recorded Female 03/02/2021 5:45 PM CDT COVID-19 Exposure Response Date Recorded In the last 10 days, have you been in contact with No / Unsu re 03/08/2022 4:32 PM CDT someone who was confirmed or suspected to have Coronavirus/COVID-19? documented as of this encounter Plan of Treatment Upcoming Encounters Date Type Specialty Care Team Description 04/28/2022 Office Visit Family Practice Anthony Doe PA-C [address] [place] [address] (Wo rk) 05/03/2022 Office Visit Dermatology Neil Kent M D [address] [place], [place] [address]045 (Wo rk) 05/05/2022 Office Visit Optometry Yeny David, OD [address] [facility] [address] (Wo rk) 05/11/2022 Virtual Visit Pharm D Diana Desir , [facility] [address] [place], [place] [address] (Wo rk) 05/14/2022 Office Visit Cardiology Livan Sharif MD [address], [facility] [address] [place], [place] [address] (Wo rk) 05/31/2022 Office Visit Family Practice Valery Veronica , PA-C [address] [place], [place] [address] (Wo rk) documented as of this encounter Visit Diagnoses Not on filedocumented in this encounter Additional Health Concerns Assessment Noted Time PHQ-9 Depression Total Score: 2 12/18/2021 2:50 PM CDT documented as of this encounter Care Teams Story Analyst Relationship Specialty Start Date End Date Marija Edgar, PCP - General Nurse Practitioner 04/30/20 LOAN OFFICER ACQUISITION CONSULTANT [address] [place] [address] Lita Oseguera Personal Advocate & 02/28/20 Liaison (PAL) Marija Edgar, Assigned PCP 06/08/20 LOAN OFFICER ACQUISITION CONSULTANT [address] [place] [address] Mauri, Assigned Neuroscience 06/04/20 MD Keisha Provider [address] [place], [place] [address] Galo Burrell MD Assigned Heart and 10/05/20 04/02/[address] Vascular Provider [address] [place], [place] [address] Diana Desir, Pharmacist Pharmacist 04/17/21 [facility] [address] [place], [place] [address] Rain Galaviz Physician Supervisor Major Appliance Assembly Dermatology 04/28/21 ROVERTO Paredes [address] [place] [address] DR [facility] [facility], [place] [id number] Summer Lara MD Assigned OBGYN Provider 05/31/21 03/12/[address] [place], [place] [address] Tavia Wyatt MD Dermatology 07/14/21 Johnny Medrano Assigned Musculoskeletal 08/30/21 03/17/22 MD Ish Provider [address] [place], [place] [phone] Erica Farrell Nurse Practitioner Cardiovascular Disease 09/09/21 ARLENE Guidry ACQUISITION CONSULTANT [address] [place], [place] [address] Tavia Wyatt, Assigned Surgical 11/29/21 MD Provider Diana Desir, Assigned MTM Pharmacist 01/02/22 03/26/22 [facility] [address] [place], [place] [id number] Rich Barrett Physician Ophthalmology 01/21/22 Gerson Reyes MD [address] [facility] [place], [facility] [address] [place], [place] [phone] Neil [place] MD MD Dermatology 02/24/[address] [place] [address] documented as of this encounter
--- OUTSIDE RECORDS SUMMARY | 2022-04-28 01:06 | XMS_ITS | Encounter Summary ---
:2000 Author Organization [facility] Address [address] [place] [address] Care Team Providers Name Role Phone Lita Oseguera Unavailable Unavailable Marija Edgar APRN DESIGN DRAFTSMAN Primary Care Provider [phone] Marija Edgar APRN DESIGN DRAFTSMAN Unavailable Keisha Dotson MD Unavailable Galo Burrell MD Unavailable Diana Desir [facility] Unavailable Rain Galaviz PA-C Unavailable [phone] Tavia Wyatt MD Unavailable Unavailable Erica Farrell APRN DESIGN DRAFTSMAN Unavailable Tavia Wyatt MD Unavailable Unavailable Diana Desir [facility] Unavailable Rich Barrett MD Unavailable [phone] Neil Kent MD Unavailable Roney Story DPM Unavailable Reason for Referral CV Testing (Routine) - Closed Specialty Diagnoses / Procedures Referred By Contact Refer red To Contact Diagnoses Paroxysmal supraventricular tachycardia (H) Palpitations Galo Burrell MD Procedures Adult Leadless contracting specialist 8 to 14 Days ZZHC EXT ECG > 48HR TO 21 DAY RCRD W/CONECT INTL RCRD ZZC EXT ECG > 48HR TO 21 DAY REVIEW AND INTERPRETATN DC EXT ECG > 48HR TO 21 DAY RCRD W/CONECT INTL RCRD [address] DC EXT ECG > 48HR TO 21 DAY REVIEW AND INTERPRETATN HC EXT ECG > 48HR TO 21 DAY RCRD W/[place] [address] Referral ID Status Reason Start Date Expiration Date Visits Requ ested Visits Authorized [id number] Closed 02/26/2022 02/26/2023 1 1 Reason for Visit CV Testing (Routine) - Closed Specialty Diagnoses / Procedures Referred By Contact Refer red To Contact Diagnoses Paroxysmal supraventricular tachycardia (H) Palpitations Galo Burrell MD Procedures Adult Leadless contracting specialist 8 to 14 Days ZZHC EXT ECG > 48HR TO 21 DAY RCRD W/CONECT INTL RCRD ZZC EXT ECG > 48HR TO 21 DAY REVIEW AND INTERPRETATN DC EXT ECG > 48HR TO 21 DAY RCRD W/CONECT INTL RCRD [address] DC EXT ECG > 48HR TO 21 DAY REVIEW AND INTERPRETATN HC EXT ECG > 48HR TO 21 DAY RCRD W/[place] [address] Referral ID Status Reason Start Date Expiration Date Visits Requ ested Visits Authorized [id number] Closed 02/26/2022 02/26/2023 1 1 Encounter Details Date Type Department Care Team Description 03/26/2022 Hospital Encounter [facility] Galo Burrell MD Paroxysmal supraventricular tachycardia (H); [facility] [address] [address] [place], [place] [address] [address] [place], [place] [phone] [address] (Work) [phone] Social History Tobacco Use Types Packs/Day Years [...] week 09/22/2021 How often do you attend islam or uatsdin services? Never 09/22/2021 Do you belong to any clubs or organizations such as No 09/22/2021 islam groups, unions, fraternal or athletic groups, or [...] to sleep or slept in a senior care (including now)? Education Answer Date Recorded What [...] 0.05 Apply small amount to 60 mL 11 08/11/2021 % external psoriasis on the solutionIndications: [...] as needed. documented as of this encounter Progress Notes Mynor Thomas - 03/26/2022 8:12 AM CDT Placed a 14 day Zio patch alarm security or surveillance monitor. documented in this encounter Plan of Treatment Upcoming Encounters Date Type Specialty Care Team Description 04/28/2022 Office Visit Family Practice Anthony Doe PA-C [address] [place], [place] [phone] (Wo rk) 05/03/2022 Office Visit Dermatology Neil Kent M D [address] [place] [address] (Wo rk) 05/05/2022 Office Visit Optometry Yeny David, OD [address] [facility] [address] [place], [place] [phone] (Wo rk) 05/11/2022 Virtual Visit Pharm D Diana Desir , [facility] [address] [place] [address] (Wo rk) 05/14/2022 Office Visit Cardiology Livan Sharif MD [address], [address] [place], [place] [address] (Wo rk) 05/31/2022 Office Visit Family Practice Valery Veronica , [facility] [address] [place], [place] [address] (Wo rk) documented as of this encounter Procedures Procedure Name Priority Date/Time Associated Diagnosis Comme nts LEADLESS EMBEDDED SYSTEMS SOFTWARE ENGINEER Routine 03/26/2022 8:12 AM Paroxysmal APPLICATION AND INTERP CDT supraventricular 8 TO 14 DAYS tachycardia (H) Palpitations documented in this encounter Results LEADLESS EMBEDDED SYSTEMS SOFTWARE ENGINEER APPLICATION AND INTERP 8 TO 14 DAYS (03/26/2022 8:12 AM CDT) Anatomical Region Laterality Modality Other Specimen (Source) Anatomical Location Collection Method / Collectio n Time Received Time / Laterality Volume Narrative This result has an attachment that is no t available. Galo Burrell MD CV CARDIAC SERVICES ORDERABL ES documented in this encounter Visit Diagnoses Diagnosis Paroxysmal supraventricular tachycardia (H) Paroxysmal supraventricular tachycardia Palpitations documented in this encounter Additional Health Concerns Assessment Noted Time PHQ-9 Depression Total Score: 2 12/18/2021 2:50 PM CDT documented as of this encounter Care Teams Aviation Support Equipment Repairer Relationship Specialty Start Date End Date Marija Edgar, PCP - General Nurse Practitioner 04/30/20 WOUND CARE RN DESIGN DRAFTSMAN [address] [place] [address] Lita Oseguera Personal Advocate & 02/28/20 Liaison (PAL) Marija Edgar, Assigned PCP 06/08/20 WOUND CARE RN DESIGN DRAFTSMAN [address] [place], [place] [phone] Mauri, Assigned Neuroscience 06/04/20 MD Keisha Provider [address] [place], [place] [address] Galo Burrell MD Assigned Heart and 10/05/20 04/02/[address] Vascular Provider [address] [place] [address] Diana Desir, Pharmacist Pharmacist 04/17/[address] 7445[address] Rain Galaviz Physician Rigging Slinger Dermatology 04/28/21 ROVERTO Paredes [address] [place] [address] [place] [address] Tavia Wyatt MD Dermatology 07/14/21 Erica Ochoa Nurse Practitioner Cardiovascular Disease 09/09/21 ARLENE Guidry DESIGN DRAFTSMAN [address] [address] Tavia Wyatt, Assigned Surgical 11/29/21 MD Provider Diana Desir, Assigned MTM Pharmacist 01/02/22 03/26/[address] 9197[address] Rich Barrett Physician Ophthalmology 01/21/22 Gerson Reyes MD [address] [facility] [place], [address] [address] Neil Kent MD MD Dermatology 02/24/[address] [place] [address] Roney Story Assigned Musculoskeletal 03/20/22 MANDEEP Aguila Provider [address] [address] documented as of this encounter
--- OUTSIDE RECORDS SUMMARY | 2022-04-28 01:06 | XMS_ITS | Encounter Summary ---
:2000 Author Organization [facility] Address [address] [place] [address] Care Team Providers Name Role Phone Lita Oseguera Unavailable Unavailable Marija Edgar APRN SEWING 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 PLASTIC ZIPPER Primary Care Provider [phone] Marija Edgar APRN SEWING 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 PLASTIC ZIPPER Unavailable Keisha Dotson MD Unavailable Zachary Burrell MD Unavailable Diana Desir [facility] Unavailable Rain Galaviz PA-C Unavailable Tavia Wyatt MD Unavailable Unavailable Erica Farrell APRN SEWING 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 PLASTIC ZIPPER Unavailable Tavia Wyatt MD Unavailable Unavailable Diana Desir [facility] Unavailable Rich Barrett MD Unavailable Neil [place] MD Unavailable Roney Story DPM [...] ZZHC STATISTIC IV PUSH SINGLE INITIAL SUBSTANCE RI ECHO MYOCARD BX RI INJECTION, PERFLUTREN LIPID MICROSPHERES, PER ML RI TTE W/DOPPLER, [place] [address] RI IV PUSH SINGLE, INITIAL S UBSTANCE RI TTE W/DOPPLER, COMPLETE RI TTE W/DOPPLER, COMPLETE HC US GUIDE FOR PERICARDIOCENTESIS HC ECHO MYOCARD BX HC IV PUSH SINGLE, INITIAL SUBSTANCE HC STATISTIC IV PUSH SINGLE INITIAL SUBSTANCE HC ECHO COMPLETE W DOPPLER W CONTRAST HC ECHO COMPLETE W DOPPLER W/O CONTRAST Referral ID Status Reason Start Date Expiration Date Visits Requ ested Visits Authorized [id number] Closed 02/26/2022 02/26/2023 1 1 Reason for [...] ZZHC STATISTIC IV PUSH SINGLE INITIAL SUBSTANCE RI ECHO MYOCARD BX RI INJECTION, PERFLUTREN LIPID MICROSPHERES, PER ML RI TTE W/DOPPLER, [place] [address] RI IV PUSH SINGLE, INITIAL S UBSTANCE RI TTE W/DOPPLER, COMPLETE RI TTE W/DOPPLER, COMPLETE HC US GUIDE FOR PERICARDIOCENTESIS HC ECHO MYOCARD BX HC IV PUSH SINGLE, INITIAL SUBSTANCE HC STATISTIC IV PUSH SINGLE INITIAL SUBSTANCE HC ECHO COMPLETE W DOPPLER W CONTRAST HC ECHO COMPLETE W DOPPLER W/O CONTRAST Referral ID Status Reason Start Date Expiration Date Visits Requ ested Visits Authorized [id number] Closed 02/26/2022 02/26/2023 1 1 Encounter Details Date Type Department Care Team Description 03/26/2022 Hospital Encounter [facility] Zachary Burrell MD [facility] [address] [facility] supraventric ular [address] tachycardia (H) [address] [place], [place] [address] [address] [place], [place] [phone] [address] (Work) [phone] Social History Tobacco Use Types Packs/Day Years [...] week 09/22/2021 How often do you attend orthodoxy or episcopalian services? Never 09/22/2021 Do you belong to any clubs or organizations such as No 09/22/2021 orthodoxy groups, unions, fraternal or athletic groups, or [...] Care Team Description 04/28/2022 Office Visit Family [facility] Anthony Doe, PAUcheC [address] [place] [address] (Wo rk) 05/03/2022 Office Visit Dermatology Neil [place] M D [address] [place], [place] [address] (Wo rk) 05/05/2022 Office Visit Optometry Yeny David, OD [address] [facility] [address] [place] [id number] (Wo rk) 05/11/2022 Virtual Visit Pharm D Diana Desir , [facility] [address] [place], [place] [address] (Wo rk) 05/14/2022 Office Visit Cardiology Livan Sharif MD [address], [address] [place], [place] [address] (Wo rk) 05/31/2022 Office Visit Family Practice Valery Veronica , PA-C [address] [place], [place] [address] (Wo rk) documented as of this encounter Procedures Procedure Name Priority Date/Time Associated Diagnosis Comme nts ECHO COMPLETE Routine 03/26/2022 8:02 AM Paroxysmal Results for this CDT supraventricular procedure a re in tachycardia (H) the results section. documented in this encounter Results ECHO COMPLETE (03/26/2022 8:02 AM CDT) P athologist Signature LVEF 55% CARDIOLOGY RESULTS Anatomical Region Laterality Modality Echocardiography Specimen (Source) Anatomical Collection Method Collection Time Re ceived Time Location / / Volume Laterality 03/26/2022 7:39 AM CDT Narrative 03/26/2022 8:36 AM CDT [id number]^ROGER^[facility] Echocardiography Laboratory [address] [place] [address] Name: KIM CLARK : 2000 Study Date: 03/26/2022 07:39 AM Age: 21 yrs Gender: Female Patient Location: [facility] Reason For Study: Paroxysmal supraventri cular tachycardia [...] Procedure Note Servando Schmidt MD - [id number]^ROGER^[facility] Echocardiography Laboratory [address] [place] [address] Name: KIM CLARK : 2000 Study Date: 03/26/2022 07:39 AM Age: 21 yrs Gender: Female Patient Location: [facility] Reason For Study: Paroxysmal supraventri cular tachycardia [...] documented as of this encounter Care Teams Health Concierge Relationship Specialty Start Date End Date Marija Edgar, PCP - General Nurse Practitioner 04/30/20 METALLURGY TEACHER SEWING 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 PLASTIC ZIPPER [address] [place] [address] Lita Oseguera Personal Advocate & 02/28/20 Liaison (PAL) Marija Edgar, Assigned PCP 06/08/20 METALLURGY TEACHER SEWING 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 PLASTIC ZIPPER [address] [place] [address] Mauri, Melody Neuroscience 06/04/20 MD Keisha Provider [address] [place], [place] [address] Zachary Burrell MD Assigned Heart and 10/05/20 04/02/22 [address] [facility] Vascular Provider [address] [place], [place] [address] Diana Desir, Pharmacist Pharmacist 04/17/21 [facility] [address] [place], [place] [address] Rain Galaviz Physician Recreation Counselor Dermatology 04/28/21 ROVERTO Paredes [address] [facility] [place] [id number] Tavia Wyatt MD Dermatology 07/14/21 Erica Ochoa Nurse Practitioner Cardiovascular Disease 09/09/21 ARLENE Guidry SEWING 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 PLASTIC ZIPPER [address] [place], [place] [address] Tavia Wyatt, Assigned Surgical 11/29/21 MD Provider Diana Desir, Assigned MTM Pharmacist 01/02/22 03/26/22 [facility] [address] [place], [place] [address] Rich Barrett Physician Ophthalmology 01/21/22 Gerson Reyes MD [address] [facility] [address] [place] [address] Neil [place] MD MD Dermatology 02/24/22 [address] [place] [address] Roney Story Assigned Musculoskeletal 03/20/22 MANDEEP Aguila Provider [address] [facility] [address] [place] [address] documented as of this encounter
--- OUTSIDE RECORDS SUMMARY | 2022-04-28 01:06 | XMS_ITS | Encounter Summary ---
:2000 Author Organization [facility] Address [address] [place] [address] Care Team Providers Name Role Phone Lita Oseguera Unavailable Unavailable Marija Edgar APRN FREEZING 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 Primary Care Provider [phone] Marija Edgar APRN FREEZING 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 Unavailable Keisha Dotson MD Unavailable Galo Burrell MD Unavailable Diana Desir [facility] Unavailable Rain Galaviz PA-C Unavailable [phone] Summer Lara MD Unavailable Tavia Wyatt MD Unavailable Unavailable Johnny Murillo MD Unavailable [phone] Erica Farrell CALL WORKER PERSON FREEZING 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 Unavailable [phone] Tavia Wyatt MD Unavailable Unavailable Diana Desir [facility] Unavailable Rich Barrett MD Unavailable [phone] Neil [place] MD Unavailable Encounter Details Date Type Department Care Team Description 03/12/2022 Travel Social History Tobacco Use Types Packs/Day [...] week 09/22/2021 How often do you attend yazidi or adventist services? Never 09/22/2021 Do you belong to any clubs or organizations such as No 09/22/2021 yazidi groups, unions, fraternal or athletic groups, or [...] Office Visit Family Practice Anthony Doe PA-C [address] [place] [address] (Wo rk) 05/03/2022 Office Visit Dermatology Neil Kent M D [address] [place], [place] [address] (Wo rk) 05/05/2022 Office Visit Optometry Yeny David, OD [address] [facility] [place] [address] (Wo rk) 05/11/2022 Virtual Visit Pharm D Diana Desir , [facility] [address] [place], [place] [address] (Wo rk) 05/14/2022 Office Visit Cardiology Livan Sharif MD [address], [facility] [address] [place], [place] [address] (Wo rk) 05/31/2022 Office Visit Family Practice Valery Veronica , PA-C [address] [place], [place] [address] (Wo rk) documented as of this encounter Visit Diagnoses Not on filedocumented in this encounter Additional Health Concerns Assessment Noted Time PHQ-9 Depression Total Score: 2 12/18/2021 2:50 PM CDT documented as of this encounter Care Teams Real Property Appraiser Relationship Specialty Start Date End Date Marija Edgar, PCP - General Nurse Practitioner 04/30/20 CALL WORKER PERSON FREEZING 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 [address] [place] [address] Lita Oseguera Personal Advocate & 02/28/20 Liaison (PAL) Marija Edgar, Assigned PCP 06/08/20 CALL WORKER PERSON FREEZING 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 [address] [place] [address] Mauri, Assigned Neuroscience 06/04/20 MD Keisha Provider [address] [place], [place] [address] Galo Burrell MD Assigned Heart and 10/05/20 04/02/[address] Vascular Provider [address] [place], [place] [address] Diana Desir, Pharmacist Pharmacist 04/17/21 [facility] [address] [place], [place] [address] Rain Galaviz Physician Insurance Agency Owner Dermatology 04/28/21 ROVERTO Paredes [address] [place] [address] [address] [facility] [facility] [place] [phone] Summer Lara MD Assigned OBGYN Provider 05/31/21 03/12/[address] [place], [place] [address] Tavia Wyatt MD Dermatology 07/14/21 Johnny Medrano Assigned Musculoskeletal 08/30/21 03/17/22 MD Ish Provider [address] [place], [place] [phone] Erica Farrell Nurse Practitioner Cardiovascular Disease 09/09/21 ARLENE Guidry FREEZING 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 [address] [place], [place] [address] Tavia Wyatt, Assigned Surgical 11/29/21 MD Provider Diana Desir, Assigned MTM Pharmacist 01/02/22 03/26/22 [facility] [address] [place], [place] [phone] Rich Barrett Physician Ophthalmology 01/21/22 Gerson Reyes MD 6 [facility] [place], [facility] [address] [place], [place] [phone] [place] MD MD Dermatology 02/24/[address] [place] [address] documented as of this encounter
--- OUTSIDE RECORDS SUMMARY | 2022-04-28 01:06 | XMS_ITS | Encounter Summary ---
:2000 Author Organization [facility] Address [address] [place] [address] Care Team Providers Name Role Phone Lita Oseguera Unavailable Unavailable Marija Edgar APRN HOT BOX SPOTTER Primary Care Provider [phone] Marija Edgar APRN HOT BOX SPOTTER Unavailable Keisha Dotson MD Unavailable Diana Desir [facility] Unavailable Rain Galaviz PA-C Unavailable [phone] Tavia Wyatt MD Unavailable Unavailable Erica Farrell APRN HOT BOX SPOTTER Unavailable + [phone] Tavia Wyatt MD Unavailable Unavailable Rich Barrett MD Unavailable [phone] Neil Kent MD Unavailable Roney Story DPM Unavailable Erica Farrell APRN HOT BOX SPOTTER Unavailable + Diana Desir [facility] Unavailable Encounter Details Date Type Department Care Team Description 04/08/2022 Travel Social History Tobacco Use Types Packs/Day [...] week 09/22/2021 How often do you attend judaism or yazidi services? Never 09/22/2021 Do you belong to any clubs or organizations such as No 09/22/2021 judaism groups, unions, fraternal or athletic groups, or [...] place to sleep or slept in a long-term (including now)? Education Answer Date Recorded What [...] Office Visit Family Practice Anthony Doe PA-C [address] [place] [address] (Wo rk) 05/03/2022 Office Visit Dermatology Neil Kent M D [address] [place] [address] (Wo rk) 05/05/2022 Office Visit Optometry Yeny David, OD [address] [facility] [address] [place] [phone] (Wo rk) 05/11/2022 Virtual Visit Pharm D Diana Desir , [facility] [address] [place] [address] (Wo rk) 05/14/2022 Office Visit Cardiology Livan Sharif MD [address] [place], [place] [phone] (Wo rk) 05/31/2022 Office Visit Family Practice Valery Veronica , PA-C [address] [place], [place] [phone] (Wo rk) documented as of this encounter Visit Diagnoses Not on filedocumented in this encounter Additional Health Concerns Assessment Noted Time PHQ-9 Depression Total Score: 2 12/18/2021 2:50 PM CDT documented as of this encounter Care Teams Clinical Phlebotomist Relationship Specialty Start Date End Date Marija Edgar PCP - General Nurse Practitioner 04/30/20 ESL TEACHER HOT BOX SPOTTER [address] [place] [address] Lita Oseguera Personal Advocate & 02/28/20 Liaison (PAL) Marija Edgar, Assigned PCP 06/08/20 ESL TEACHER HOT BOX SPOTTER [address] [place], [place] [phone] Melody Dotson Neuroscience 06/04/20 MD Keisha Provider [address] [place] [address] Diana Desir, Pharmacist Pharmacist 04/17/21 [facility] [address] [place] [address] Rain Galaviz Physician Balloon Pilot Dermatology 04/28/21 ROVERTO Paredes [address] [place] [address] [address] [facility] [place] [address] Tavia Wyatt MD Dermatology 07/14/21 Erica Ochoa Nurse Practitioner Cardiovascular Disease 09/09/21 ARLENE Guidry HOT BOX SPOTTER [address] [facility] [address] [place], [place] [address] Tavia Wyatt, Assigned Surgical 11/29/21 MD Provider Rich Barrett Physician Ophthalmology 01/21/22 Gerson Reyes MD [address] [facility] [address] [place], [place] [address] Neil Kent MD MD Dermatology 02/24/22 [address] [place], [place] [address] Roney Story, Assigned Musculoskeletal 03/20/22 DPM Provider [address] [facility] [address] [place], [place] [address] Erica Farrell Assigned Heart and 04/03/22 ARLENE Guidry HOT BOX SPOTTER Vascular Provider [address] [place] [address] Diana Desir, Assigned MTM Pharmacist 04/07/22 [facility] [address] [place] [address] documented as of this encounter
--- OUTSIDE RECORDS SUMMARY | 2022-04-28 01:06 | XMS_ITS | Encounter Summary ---
:2000 Author Organization [place] Address [address] [place] [address] Care Team Providers Name Role Phone Lita Oseguera Unavailable Unavailable Marija Edgar APRN LENS GRINDER AND POLISHER Primary Care Provider Marija Edgar APRN LENS GRINDER AND POLISHER Unavailable Keisha Dotson MD Unavailable Diaan Desir [facility] Unavailable Rain Galaviz PA-C Unavailable [phone] Tavia Wyatt MD Unavailable Unavailable Erica Farrell APRN LENS GRINDER AND POLISHER Unavailable [phone] Tavia Wyatt MD Unavailable Unavailable Rich Barrett MD Unavailable [phone] Neil Kent MD Unavailable Roney Story DPM Unavailable Erica Farrell APRN LENS GRINDER AND POLISHER Unavailable + Reason for Referral CV Testing (Routine) - Closed Specialty Diagnoses / Procedures Referred By Contact Refer red To Contact Diagnoses SVT (supraventricular tachycardia) (H) Galo Burrell MD Procedures Adult Leadless director emergency 3 to 7 Days ZZHC EXT ECG > 48HR TO 21 DAY RCRD W/CONECT INTL RCRD ZZC EXT ECG > 48HR TO 21 DAY REVIEW AND INTERPRETATN NV EXT ECG > 48HR TO 21 DAY RCRD W/CONECT INTL RCRD [address] NV EXT ECG > 48HR TO 21 DAY REVIEW AND INTERPRETATN HC EXT ECG > 48HR TO 21 DAY RCRD W/[place] [address] Referral ID Status Reason Start Date Expiration Date Visits Requ ested Visits Authorized [id number] Closed 04/05/2022 1 1 Reason for Visit CV Testing (Routine) - Closed Specialty Diagnoses / Procedures Referred By Contact Refer red To Contact Diagnoses SVT (supraventricular tachycardia) (H) Galo Burrell MD Procedures Adult Leadless director emergency 3 to 7 Days ZZHC EXT ECG > 48HR TO 21 DAY RCRD W/CONECT INTL RCRD ZZC EXT ECG > 48HR TO 21 DAY REVIEW AND INTERPRETATN NV EXT ECG > 48HR TO 21 DAY RCRD W/CONECT INTL RCRD [address] NV EXT ECG > 48HR TO 21 DAY REVIEW AND INTERPRETATN HC EXT ECG > 48HR TO 21 DAY RCRD W/[place] [address] Referral ID Status Reason Start Date Expiration Date Visits Requ ested Visits Authorized [id number] Closed 04/05/2022 1 1 Encounter Details Date Type Department Care Team Description 04/05/2022 Hospital Encounter [facility] Galo Burrell MD SVT [facility] [address] (supraven tricular [facility] [address] tachycardia) (H) [address] [place], [place] [address] [address] [place], [place] (Work) [address] Social History Tobacco Use Types Packs/Day Years [...] How often do you attend hinduism or taoism services? 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 I placed it for an additional 7 days. All pt questions answered. Genny Kim - 04/05/2022 10:38 AM CDT Pt enrolled for self application of a new zio [id number] to be placed today. Her first zio, which was placed 03/26, fell off after 6 days of the 14 day prescribed wear time. She would like to have a full 14 days of monitoring time, so she will send in her first zio for interpretation and the new zio will be worn for an additional week. I emailed our phlebotomy services representative at [facility] so she can be aware that this patient will have 2 devices totaling 14 days and adjusting billing as needed. documented in this encounter Plan of Treatment Upcoming Encounters Date Type Specialty Care Team Description 04/28/2022 Office Visit [facility] Anthony Doe, ROVERTO [address] [place], [place] [phone] (Wo rk) 05/03/2022 Office Visit Dermatology Neil Kent M D [address] [place], [place] [phone] (Wo rk) 05/05/2022 Office Visit Optometry Yeny David, OD [address] [facility] [address] [place] [phone] (Wo rk) 05/11/2022 Virtual Visit Pharm D Diana Desir , [facility] [address] [place], [place] [address] (Wo rk) 05/14/2022 Office Visit Cardiology Livan Sharif MD [address] [facility] [place] , [facility] [address] [place], [place] [address] (Wo rk) 05/31/2022 Office Visit [facility] Valery Veronica , PABaldo [address] [place], [place] [address] (Wo rk) documented as of this encounter Procedures Procedure Name Priority Date/Time Associated Diagnosis Comme nts LEADLESS TENDERIZER TENDER Routine 04/05/2022 10:38 AM SVT (supraven tricular APPLICATION AND CDT tachycardia) (H) INTERPRETATION 3 TO 7 DAY documented in this encounter Results LEADLESS TENDERIZER TENDER APPLICATION AND INTERPRETATION 3 TO 7 DAY (04/05/2022 10:38 AM CDT) Anatomical Region Laterality Modality Other Specimen (Source) Anatomical Location Collection Method / Collectio n Time Received Time / Laterality Volume Narrative This result has an attachment that is no t available. Galo Burrell MD CV CARDIAC SERVICES ORDERABL ES documented in this encounter Visit Diagnoses Diagnosis SVT (supraventricular tachycardia) (H) Other specified cardiac dysrhythmias documented in this encounter Additional Health Concerns Assessment Noted Time PHQ-9 Depression Total Score: 2 12/18/2021 2:50 PM CDT documented as of this encounter Care Teams Plastics Repairer Relationship Specialty Start Date End Date Marija Edgar, PCP - General Nurse Practitioner 04/30/20 MEAT HANGER LENS GRINDER AND POLISHER [address] [place] [address] Lita Oseguera Personal Advocate & 02/28/20 Liaison (PAL) Marija Edgar, Assigned PCP 06/08/20 MEAT HANGER LENS GRINDER AND POLISHER [address] [place], [place] [phone] Mauri, Melody Neuroscience 06/04/20 MD Keisha Provider [address] [place], [place] [address] Diana Desir, Pharmacist Pharmacist 04/17/21 [facility] [address] [place] [address] Rain Galaviz Physician Migrant Leader Dermatology 04/28/21 ROVERTO Paredes [address] [place] [address] [address] [place], [place] [phone] Tavia Wyatt MD Dermatology 07/14/21 Erica Ochoa Nurse Practitioner Cardiovascular Disease 09/09/21 ARLENE Guidry LENS GRINDER AND POLISHER [address] [facility] [address] [place], [place] [address] Tavia Wyatt, Assigned Surgical 11/29/21 Provider Rich Barrett Physician Ophthalmology 01/21/22 Gerson Reyes MD [address] [facility] [address] [place] [address] Neil Kent MD MD Dermatology 02/24/22 [address] [place], [place] [phone] Roney Story, Assigned Musculoskeletal 03/20/22 DPM Provider [address] [facility] [address] [place] [address] Erica Farrell Assigned Heart and 04/03/22 ARLENE Guidry LENS GRINDER AND POLISHER Vascular Provider [address] [place] [address] documented as of this encounter
--- OUTSIDE RECORDS SUMMARY | 2022-04-28 01:06 | XMS_ITS | Encounter Summary ---
:2000 Author Organization [facility] Address [address] [place] [address] Care Team Providers Name Role Phone Lita Oseguera Unavailable Unavailable Marija Edgar APRN STEAM GENERATING POWERPLANT MECHANIC Primary Care Provider [phone] Marija Edgar APRN STEAM GENERATING POWERPLANT MECHANIC Unavailable Keisha Dotson MD Unavailable Galo Burrell MD Unavailable Diana Desir [facility] Unavailable Rain Galaviz PA-C Unavailable [phone] Summer Lara MD Unavailable Tavia Wyatt MD Unavailable Unavailable Johnny Murillo MD Unavailable [phone] Erica Farrell APRN STEAM GENERATING POWERPLANT MECHANIC Unavailable [phone] Tavia Wyatt MD Unavailable Unavailable Diana Desir [facility] Unavailable Rich Barrett MD Unavailable [phone] Neil Kent MD Unavailable Reason for Visit Reason Comments URI Low grade fever, chest comfo rt and tightness in the chest since yesterday. Encounter Details Date Type Department Care Team Description 02/24/2022 Office Visit [facility] James, Marcelo Person u nder investigation for COVID-19 (Primary Dx); [facility] Livan Springer PA-C Chest tightness [address] [address] [place] [address] [phone] Social History Tobacco Use Types Packs/Day Years [...] How often do you attend episcopal or moravian services? Never 09/22/2021 Do you [...] place to sleep or slept in a retirement (including now)? Education Answer Date Recorded What [...] Sign Reading Time Taken Comments Blood Pressure 108/68 02/24/2022 2:41 PM CDT Pulse 98 02/24/2022 2:41 PM CDT Temperature 36.3 ??C (97.3 ??F) 02/24/2022 2:41 PM CDT Respiratory Rate 18 02/24/2022 2:41 PM CDT Oxygen Saturation 98% 02/24/2022 2:41 PM CDT Inhaled Oxygen Concentration - - Weight 77.1 kg (170 lb) 02/24/2022 2:41 PM CDT Height - - Body Mass Index 27.44 12/18/2021 3:00 PM CDT documented in this encounter Progress Notes Marcelo Ramirez PA-C - 02/24/2022 1:25 PM CDT SUBJECTIVE: Kim Johnson is a 21 year old female presenting with a chief complaint of runny nose, stuffy nose,cough - non-productive, headache, body aches, fatigue and nausea. Onset of symptoms was 1 day(s) ago. Course of illness is same. Severity moderate Current and Associated symptoms: as above Treatment measures tried include Fluids and Rest. Predisposing factors include ill contact: Family member and Daycare. Past Medical History: Diagnosis Date ??? Anxiety ??? Chronic kidney disease stones, history of infections ??? Depressive disorder ??? Gastroesophageal reflux disease ??? Psoriasis ??? Seizure (H) 05/02/2019 no seizure since 2017 ??? SVT (supraventricular tachycardia) (H) Current Outpatient Medications Medication Sig Dispense Refill ??? augmented betamethasone dipropionate (DIPROLENE-AF) 0.05 % external ointment Apply up to twice daily as needed for psoriasis on thicker areas of skin. 150 g 11 ??? fluocinonide (LIDEX) 0.05 % external solution [...] twice daily as needed. 60 g 11 ??? benzonatate (TESSALON) 100 MG capsule Take 1 capsule (100 mg) by mouth 3 times daily as needed for cough (Patient not taking: Reported on 02/24/2022) 30 capsule 0 Social History Tobacco Use ??? Smoking status: Former Smoker Packs/day: 1.00 Types: Other Quit date: 12/07/2019 Years since quittin.2 ??? Smokeless tobacco: Never Used Substance Use Topics ??? Alcohol use: Not Currently ROS: Review of systems negative except as stated above. OBJECTIVE: BP 108/68 (BP Location: Left arm, Patient Position: Sitting, Cuff Size: Adult Regular) Pulse 98 Temp 97.3 ??F (36.3 ??C) (Tympanic) Resp 18 Wt 77.1 kg (170 lb) SpO2 98% BMI 27.44 kg/m?? GENERAL APPEARANCE: healthy, alert and no distress EYES: EOMI, PERRL, conjunctiva clear HENT: ear canals and TM's normal. Nose and mouth without ulcers, erythema or lesions NECK: supple, nontender, no lymphadenopathy RESP: lungs clear to auscultation - no rales, rhonchi or wheezes CV: regular rates and rhythm, normal S1 S2, no murmur noted NEURO: Normal strength and tone, sensory exam grossly normal, normal speech and mentation SKIN: no suspicious lesions or rashes Results for orders placed or performed in visit on 02/24/22 D dimer, quantitative Status: Normal Result Value Ref Range D-Dimer Quantitative 0.28 0.00 - 0.50 ug/mL FEU Narrative This D-dimer assay is intended for use in conjunction with a clinical pretest probability assessment model to exclude pulmonary embolism (PE) and deep venous thrombosis (DVT) in outpatients suspected of PE or DVT. The cut-off value is 0.50 ug/mL FEU. Basic metabolic panel (Ca, Cl, CO2, Creat, Gluc, K, Na, BUN) Status: Normal Result Value Ref Range Sodium 138 133 - 144 mmol/L Potassium 4.0 3.4 - 5.3 mmol/L Chloride 109 94 - 109 mmol/L Carbon Dioxide (CO2) 24 20 - 32 mmol/L Anion Gap 5 3 - 14 mmol/L Urea Nitrogen 10 7 - 30 mg/dL Creatinine 0.63 0.52 - 1.04 mg/dL Calcium 8.9 8.5 - 10.1 mg/dL Glucose 93 70 - 99 mg/dL GFR Estimate >90 >60 mL/min/1.73m2 Troponin I Status: Normal Result Value Ref Range Troponin I High Sensitivity <3 <54 ng/L CBC with platelets and differential Status: Abnormal Result Value Ref Range WBC Count 4.4 4.0 - 11.0 10e3/uL RBC Count 5.04 3.80 - 5.20 10e6/uL Hemoglobin 13.1 11.7 - 15.7 g/dL Hematocrit 40.7 35.0 - 47.0 % MCV 81 78 - 100 fL MCH 26.0 (L) 26.5 - 33.0 pg MCHC 32.2 31.5 - 36.5 g/dL RDW 13.5 10.0 - 15.0 % Platelet Count 208 150 - 450 10e3/uL % Neutrophils 55 % % Lymphocytes 29 % % Monocytes 9 % % Eosinophils 8 % % Basophils 1 % Absolute Neutrophils 2.4 1.6 - 8.3 10e3/uL Absolute Lymphocytes 1.3 0.8 - 5.3 10e3/uL Absolute Monocytes 0.4 0.0 - 1.3 10e3/uL Absolute Eosinophils 0.3 0.0 - 0.7 10e3/uL Absolute Basophils 0.0 0.0 - 0.2 10e3/uL CBC with platelets and differential Status: Abnormal Narrative The following orders were created for panel order CBC with platelets and differential. Procedure Abnormality Status --------- ------ CBC with platelets and d...[[id number]] Abnormal Final result Please view results for these tests on the individual orders. ASSESSMENT: (Z20.822) Person under investigation for COVID-19 (primary encounter diagnosis) (R07.89) Chest tightness Plan: EKG 12-lead complete w/read - Clinics, EKG 12-lead complete w/read - Clinics, Symptomatic; Unknown COVID-19 Virus (Coronavirus) by PCR, D dimer, quantitative, Basic metabolic panel (Ca, Cl, CO2, Creat, Gluc, K, Na, BUN), CBC with platelets and differential, Troponin I Red flags and emergent follow up discussed, and understood by patient Follow up with PCP if symptoms worsen or fail to improve documented in this encounter Plan of Treatment Upcoming Encounters Date Type Specialty Care Team Description 04/28/[address] [facility] Anthony Doe PA-C [address] [place] [address] (Wo rk) 05/03/2022 Office Visit Dermatology Neil Kent M D [address] [place] [address] (Wo rk) 05/05/2022 Office Visit Optometry Yeny David, OD [address] [place] [phone] (Wo rk) 05/11/2022 Virtual Visit Pharm D Diana Desir , [facility] [address] [place], [place] [phone] (Wo rk) 05/14/2022 Office Visit Cardiology Livan Sharif MD [address] [facility] [address] [place], [place] [address] (Wo rk) 05/31/[address] [facility] Valery Veronica PA-C [address] [place] [address] (Wo rk) documented as of this encounter Procedures Procedure Name Priority Date/Time Associated Comments Diagnosis COVID-19 VIRUS Routine 02/24/2022 3:50 PM Chest tightness Resu lts for this (CORONAVIRUS) BY PCR CDT procedu re are in the results section. CBC WITH PLATELETS Routine 02/24/2022 3:50 PM Chest tightness Results for this AND DIFFERENTIAL CDT procedure a re in the results section. CBC WITH PLATELETS & Routine 02/24/2022 3:50 PM Chest tightnes s Results for this DIFFERENTIAL CDT procedure are i n the results section. TROPONIN I Routine 02/24/2022 3:50 PM Chest tightness Result s for this CDT procedure are i n the results section. D DIMER QUANTITATIVE Routine 02/24/2022 3:50 PM Chest tightnes s Results for this CDT procedure are i n the results section. BASIC METABOLIC PANEL Routine 02/24/2022 3:50 PM Chest tightne ss Results for this CDT procedure are i n the results section. EKG 12-LEAD COMPLETE Routine 02/24/2022 Chest tightness Resu lts for this W/READ - CLINICS procedure a re in the results section. EKG 12-LEAD COMPLETE Routine 02/24/2022 Chest tightness Resu lts for this W/READ - CLINICS procedure a re in the results section. documented in this encounter Results (ABNORMAL) CBC with platelets and differential (02/24/2022 3:50 PM CDT) [facility] gist Method Time Signature WBC Count 4.4 4.0 [...] City/State/ZIP Code Phon e Number [facility] [place], [place] [phone] [place] [facility] [phone] [place] [address] Lab (no room number, 1st floor of clinic) [facility] [place], [place] [phone] [facility] [place] [address] [address] Lab (no room number, 1st floor of clinic) Troponin I (02/24/2022 3:50 PM CDT) athologist Signature Troponin I High <3 <54 ng/L 02/24/2022 [facility] Sensitivity 4:18 PM CDT Comment: This Troponin-I result was obta ined using a Siemens Dimension [place] High Sensitivity Troponin-I assay (TNIH). Eff ective 06/02/21, nine labs/sites in the [facility] switched from a Siemens [place] Contemporary Troponin I assay (CTNI) to a Siemens [place] High-Sensitivity Troponi n I assay (TNIH). Specimen Anatomical Collection Method / Collection Time Recei chelsie Time (Source) Location / Volume Laterality Blood VENOUS BLOOD / Venipuncture / 02/24/2022 3:50 02/25/20 3:50 Unknown Unknown PM CDT PM CDT Marcelo Ramirez PA-C LAB - BLOOD ORDERABLES Performing Organization Address City/State/ZIP Code Phon e Number [facility]X [facility]ATORY [place], [place] [phone] [place] [facility] [phone] [place] [address] Lab (no room number, 1st floor of clinic) [facility] [place], [place] [phone] [facility] [address] [place] [address] Lab (no room number, 1st floor of clinic) Basic metabolic panel (Ca, Cl, CO2, Creat, Gluc, K, Na, BUN) (02/24/2022 3:50 PM CDT) athologist Signature Sodium 138 133 - 144 02/24/2022 [facility] mmol/L 4:14 PM CDT Potassium 4.0 3.4 - 5.3 02/24/2022 [facility] mmol/L 4:14 PM CDT Chloride 109 94 - 109 02/24/2022 [facility] mmol/L 4:14 PM CDT Carbon Dioxide 24 20 - 32 02/24/2022 [facility] (CO2) mmol/L 4:14 PM CDT Anion Gap 5 3 - 14 02/24/2022 [facility] mmol/L 4:14 PM CDT Urea Nitrogen 10 7 - 30 02/24/2022 [facility] mg/dL 4:14 PM CDT Creatinine 0.63 0.52 - 02/24/2022 [facility] 1.04 mg/dL 4:14 PM CDT Calcium 8.9 8.5 - 10.1 02/24/2022 [facility] mg/dL 4:14 PM CDT Glucose 93 70 - 99 02/24/2022 [facility] mg/dL 4:14 PM CDT GFR Estimate >90 >60 02/24/2022 [facility] mL/min/1.7 4:14 PM CDT 3m2 Comment: Effective June 30, 2021 eGF Rcr in adults is calculated using the 2020 CKD-EPI creatinine equation which includ es age and gender (Hermilo et al., NEJM, DOI: 10.1056/DIMOsj8466456) Specimen Anatomical Collection Method / Collection Time Recei chelsie Time (Source) Location / Volume Laterality Blood VENOUS BLOOD / Venipuncture / 02/24/2022 3:50 02/25/20 22 3:50 Unknown Unknown PM CDT PM CDT Marcelo Ramirez PA-C LAB - BLOOD ORDERABLES Performing Organization Address City/State/ZIP Code Phon e Number [facility]ATORY [place], [place] [phone] [place] [facility] [address] [place] [address] Lab (no room number, 1st floor of clinic) [facility] [place], [place] [phone] [facility] [address] [place] [address] Lab (no room number, 1st floor of [...] City/State/ZIP Code Phon e Number OX [facility]ATORY [facility] [place], [place] [phone] [place] [facility] [address] [place] [address] Lab (no room number, 1st floor of clinic) [facility] [place], [place] [phone] [facility] [place] [phone] [address] Lab (no room number, 1st floor of clinic) Symptomatic; Unknown COVID-19 Virus (Coronavirus) by PCR [...] the Xpert Xpress SARS-CoV-2 Assay on the [employer]. A dditional information about this [...] COVID-19. This test was validated by the [facility] Infectious Diseases [facility]. This lab oratory is certified under the Clinical Laboratory Improvement Amen dments of 1988 (CLIA-88) as qualified to perform high complexity lab oratory testing. Marcelo Ramirez PA-C LAB - MICRO GENERAL DONYA HERRERA Performing Organization Address City/State/ZIP Code Phon e Number [facility] [place] [address] Diag. Lab 500 [facility], Room D297 EKG 12-lead complete w/read - Clinics (02/24/2022) Narrative This result has an attachment that is no t available. Marcelo Ramirez PA-C ECG ORDERABLES EKG 12-lead complete w/read - Clinics (02/24/2022) Narrative This result has an attachment that is no t available. Nohemi Browning PA-C ECG ORDERABLES documented in this encounter Visit Diagnoses Diagnosis Person under investigation for COVID-19 - Primary Chest tightness Other chest pain documented in this encounter Additional Health Concerns Assessment Noted Time PHQ-9 Depression Total Score: 2 12/18/2021 2:50 PM CDT documented as of this encounter Care Teams Aircraft Engine Mechanic Supervisor Relationship Specialty Start Date End Date Marija Edgar, PCP - General Nurse Practitioner 04/30/20 PROFESSOR OF COMMUNICATION STEAM GENERATING POWERPLANT MECHANIC [address] [place] [address] Lita Oseguera Personal Advocate & 02/28/20 Liaison (PAL) Marija Edgar, Assigned PCP 06/08/20 PROFESSOR OF COMMUNICATION STEAM GENERATING POWERPLANT MECHANIC [address] [place] [address] Melody Dotson Neuroscience 06/04/20 MD Keisha Provider [address] [place] [address] Galo Burrell MD Assigned Heart and 10/05/20 04/02/[address] Vascular Provider [address] [place], [place] [phone] Diana Desir, Pharmacist Pharmacist 04/17/21 [facility] [address] [place], [place] [address] Rain Galaviz Physician Paperhanger Pipe Dermatology 04/28/21 ROVERTO Paredes [address] [place] [address] DR [facility] [facility] [place] [phone] Summer Lara MD Assigned OBGYN Provider 05/31/21 03/12/[address] [place], [place] [address] Tavia Wyatt MD Dermatology 07/14/21 Johnny Medrano Assigned Musculoskeletal 08/30/21 03/17/22 MD Ish Provider [address] [place], [place] [phone] Erica Farrell Nurse Practitioner Cardiovascular Disease 09/09/21 ARLENE Guidry STEAM GENERATING POWERPLANT MECHANIC [address] [place], [place] [address] Tavia Wyatt, Assigned Surgical 11/29/21 MD Provider Diana Desir, Assigned MTM Pharmacist 01/02/22 03/26/22 [facility] [address] [place], [place] [phone] Rich Barrett Physician Ophthalmology 01/21/22 Gerson Reyes MD 6 [facility] [address] [place], [place] [address] Neil Kent MD MD Dermatology 02/24/[address] [place] [address] documented as of this encounter
--- OUTSIDE RECORDS SUMMARY | 2022-04-28 01:06 | XMS_ITS | Encounter Summary ---
:2000 Author Organization [facility] Address [address] [place] [address] Care Team Providers Name Role Phone Lita Oseguera Unavailable Unavailable Marija Edgar APRN GRAPHIC ART TECHNICIAN Primary Care Provider [phone] Marija Edgar APRN GRAPHIC ART TECHNICIAN Unavailable Keisha Dotson MD Unavailable Galo Burrell MD Unavailable Diana Desir [facility] Unavailable Rain Galaviz PA-C Unavailable [phone] Tavia Wyatt MD Unavailable Unavailable Erica Farrell APRN GRAPHIC ART TECHNICIAN Unavailable [phone] Tavia Wyatt MD Unavailable Unavailable Diana Desir [facility] Unavailable Rich Barrett MD Unavailable [phone] Neil Kent MD Unavailable Reason for Visit Reason Onset Date Comments Previsit 03/19/2022 Encounter Details Date Type Department Care Team Description 03/19/2022 PRE VISIT [facility] Ear Nose Bassem Vera MD Previsit and Throat Clinic [address] [place] [address] [place] [address] 4th Floor [place] [phone] Social History Tobacco Use Types Packs/Day [...] week 09/22/2021 How often do you attend voodoo or christianity services? Never 09/22/2021 Do you belong to any clubs or organizations such as No 09/22/2021 voodoo groups, unions, fraternal or athletic groups, or [...] place to sleep or slept in a assisted (including now)? Education Answer Date Recorded What is the highest level of school you have completed or 12 th grade 08/07/2020 the highest degree you have received? Sex Assigned at Date Recorded Female 03/02/2021 5:45 PM CDT documented as of this encounter Miscellaneous Notes Telephone Encounter - Trisha Cortez - 12/23/2021 1:15 PM CDT FUTURE VISIT INFORMATION FUTURE VISIT INFORMATION: ?? Date: 03/19/22 ?? Time: 12PM ?? Location: [facility] REFERRAL INFORMATION: ?? Referring provider: Lauren Claudio PA-C ?? Referring providers clinic: [facility] ?? Reason for visit/diagnosis NEW/ Pharyngitis, unspecified etiology/ Ref Lauren Claudio PA-C inCR [facility] RECORDS REQUESTED FROM: Clinic name Comments Records Status Imaging Status [facility] 12/18/21 note and referral from Lauren Claudio PA-C Epic Imaging 11/12/21 MR Cervical Spine 08/03/21 CT Cervical Spine 07/18/21 XR Chest 01/18/21 CT Chest 05/11/18 CT Head Epic PACS Procedures 06/26/21 Upper Gi Endoscopy 09/08/20 PFT EPIC documented in this encounter Plan of Treatment Upcoming Encounters Date Type Specialty Care Team Description 04/28/2022 Office Visit [facility] Anthony Doe PA-C [address] [place], [place] [phone] (Wo rk) 05/03/2022 Office Visit Dermatology Neil Kent M D [address] [place] [address] (Wo rk) 05/05/2022 Office Visit Optometry Yeny David, OD [address] [place] [phone] (Wo rk) 05/11/2022 Virtual Visit Pharm D Diana Desir , [facility] [address] [place], [place] [address] (Wo rk) 05/14/2022 Office Visit Cardiology Livan Sharif MD [address] [place], [place] [address] (Wo rk) 05/31/2022 Office Visit [facility] Valery Veronica PA-C [address] [place], [place] [address] (Wo rk) documented as of this encounter Visit Diagnoses Not on filedocumented in this encounter Additional Health Concerns Assessment Noted Time PHQ-9 Depression Total Score: 2 12/18/2021 2:50 PM CDT documented as of this encounter Care Teams Trimmer Tailer Relationship Specialty Start Date End Date Marija Edgar, PCP - General Nurse Practitioner 04/30/20 BATTER OUT GRAPHIC ART TECHNICIAN [address] [place], [place] [phone] Lita Oseguera Personal Advocate & 02/28/20 Liaison (PAL) Marija Edgar, Assigned PCP 06/08/20 BATTER OUT GRAPHIC ART TECHNICIAN [address] [place], [place] [phone] Mauri, Assigned Neuroscience 06/04/20 MD Keisha Provider [address] [place], [place] [address] Galo Burrell MD Assigned Heart and 10/05/20 04/02/[address] Vascular Provider [address] [place] [address] Diana Desir, Pharmacist Pharmacist 04/17/21 [facility] [address] [place] [address] Rain Galaviz Physician Web Services Professional Dermatology 04/28/21 ROVERTO Paredes [address] [place] [address] [place] [address] Tavia Wyatt MD MD Dermatology 07/14/21 Erica Farrell Nurse Practitioner Cardiovascular Disease 09/09/21 ARLENE Guidry GRAPHIC ART TECHNICIAN [address] [place] [address] Tavia Wyatt MD Assigned Surgical 5/22/22 Provider Diana Desir, Assigned MTM 01/02/22 03/26/22 [facility] Pharmacist [address] [place] [address] Rich Barrett Physician Ophthalmology 01/21/22 Gerson Reyes MD [address] [facility] [address] [place] [address] Neil Kent MD MD Dermatology 02/24/22 [address] [place] [address] documented as of this encounter
--- OUTSIDE RECORDS SUMMARY | 2022-04-28 01:07 | XMS_ITS | Encounter Summary ---
:2000 Author Organization [place] Address [address] [place] [address] Care Team Providers Name Role Phone Lita Oseguera Unavailable Unavailable Marija Edgar APRN CHEST PAINTING LEADER Primary Care Provider [phone] Marija Edgar APRN CHEST PAINTING LEADER Unavailable Keisha Dotson MD Unavailable Galo Burrell MD Unavailable Diana Desir [facility] Unavailable Rain Galaviz PA-C Unavailable [phone] Summer Lara MD Unavailable Tavia Wyatt MD Unavailable Unavailable Johnny Murillo MD Unavailable [phone] Erica Farrell APRN CHEST PAINTING LEADER Unavailable [phone] Tavia Wyatt MD Unavailable Unavailable Diana Desir [facility] Unavailable Rich Barrett MD Unavailable [phone] Neil Kent MD Unavailable Roney StoryM Unavailable Erica Farrell APRN CHEST PAINTING LEADER Unavailable [phone] Diana Desir [facility] Unavailable Reason for Visit Reason Comments Medication Therapy Management Encounter Details Date Type Department Care Team Description 02/02/2022 Virtual Visit [facility] Diana Desir, Anxi baileey (Primary Dx); Clinic [facility] Moderate major depression (H) [address] [address]16 [phone] (Wo rk) Social History Tobacco Use Types [...] week 09/22/2021 How often do you attend mandaeism or moravian services? Never 09/22/2021 Do you belong to any clubs or organizations such as No 09/22/2021 mandaeism groups, unions, fraternal or athletic groups, or [...] place to sleep or slept in a fpc (including now)? Education Answer Date Recorded What [...] this encounter Patient Instructions Patient InstructionsWDiana nuñez RPH - 02/02/2022 2:00 PM CDT Recommendations from today's MTM visit: 1. No changes, continue paroxetine 40 mg at bedtime. It was great speaking with you today. I value your experience and would be very thankful for your time in providing feedback in our clinic survey. In the next few days, you may receive an email or textmessage from [employer] with a link to a survey related to your ???clinical pharmacist. To schedule another MTM appointment, please call the clinic directly or you may call the MTM scheduling line at [phone] or toll-free at . My Clinical Pharmacist's contact information: Please feel free to contact me with any questions or concerns you have. Diana Desir, PharmD, [facility] Medication Therapy Management Provider, [facility] documented in this encounter Progress Notes Diana Desir RPH - 02/02/2022 2:00 PM CDT Medication Therapy Management (MTM) Encounter [...] mg at bedtime. Follow-up: Return in about 1 month (around 03/05/2022) for Medication Therapy Management Pharmacist. SUBJECTIVE/OBJECTIVE: Kim Johnson is a 21 year old female called for a follow-up visit. Today's visit is a follow-up MT visit from 01/04. Reason for visit: paroxetine follow-up Tobacco: She reports that she quit smoking about 2 years ago. Her smoking use included other. She smoked 1.00 pack per day. She has never used smokeless tobacco. Alcohol: not currently using Medication Adherence/Access: no issues reported Anxiety/Depression: Current medications include: paroxetine 40 mg daily at bedtime and lorazepam 0.5mg as needed (minimizing use, needing about once weekly lately, off and on). Doing well and better with paroxetine. Improved now vs 2-3 months ago. No more panics and can calm herself out of one better. Feels higher dose is helping more than lower dose. Overthinks a lot, worries a lot but some improvement she's seen this month. Still . no side effects so far from paroxetine except some fatigue. Lorazepam really helps for panic when needing, last used this week for 1st time in 7 days which she is happy about. Following therapist regularly. Past med trial: Buspirone [...] 4 5 Today's Vitals: none I spent 8 minutes with this patient today. All changes were made via collaborative practice agreement with Marija Edgar APRN CNP. A copy of the visit note was provided to the patient's provider(s). The patient was sent via [employer] a summary of these recommendations. Diana Desir, Luis AlbertoD Medication Therapy Management Provider, [facility] Pager: [phone] Telemedicine Visit Details Type of service: Telephone visit Start Time: 2:00 PM End Time: 2:08 PM Originating Location (patient location): Home Distant Location (provider location): [facility] Medication Therapy Recommendations No medication therapy recommendations to display documented in this encounter Plan of Treatment Upcoming Encounters Date Type Specialty Care Team Description 04/28/2022 Office Visit Family [facility] Anthony Doe PA-C [address] [place], [place] [phone] (Wo rk) 05/03/2022 Office Visit Dermatology Neil Kent M D [address] [place], [place] [phone] (Wo rk) 05/05/2022 Office Visit Optometry Yeny David, OD [address] [facility] [address] [address] [place] [phone] (Wo rk) 05/11/2022 Virtual Visit Pharm D Diana Desir , [facility] [address], [place] [address] (Wo rk) 05/14/2022 Office Visit Cardiology Livan Sharif MD [address] [facility] [address] [place], [place] [address] (Wo rk) 05/31/2022 Office Visit Family Practice Valery Veronica PABaldo 909 [place], [place] [address] (Wo rk) documented as of this encounter [...] documented as of this encounter Care Teams Debone Supervisor Relationship Specialty Start Date End Date Marija Edgar, PCP - General Nurse Practitioner 04/30/20 SPECIAL LOAN OFFICER CHEST PAINTING LEADER [address] [place], [place] [phone] Lita Oseguera Personal Advocate & 02/28/20 Liaison (PAL) Marija Edgar, Assigned PCP 06/08/20 SPECIAL LOAN OFFICER CHEST PAINTING LEADER [address] [place], [place] [phone] Mauri, Assigned Neuroscience 06/04/20 MD Keisha Provider 9[address] [place], [place] [address] Galo Burrell MD Assigned Heart and 10/05/20 04/02/22 [address] [facility] Vascular Provider [address] [place], [place] [phone] Diana Desir, Pharmacist Pharmacist 04/17/21 [facility] [address] [place], [place] [address] Rain Galaviz Physician Phlebotomy Supervisor Dermatology 04/28/21 ROVERTO Paredes [address] [place] [address] [address] [place] [place], [place] [phone] Summer Lara MD Assigned OBGYN Provider 05/31/21 03/12/[address] [place], [place] [address] Tavia Wyatt MD Dermatology 07/14/21 Johnny Medrano Assigned Musculoskeletal 08/30/21 03/17/22 MD Ish Provider [address] [place], [place] [phone] Erica Farrell Nurse Practitioner Cardiovascular Disease 09/09/21 ARLENE Guidry CHEST PAINTING LEADER [address] [facility] [address] [place], [place] [address] Tavia Wyatt, Assigned Surgical 11/29/21 MD Provider Diana Desir, Assigned MTM Pharmacist 01/02/22 03/26/22 [facility] [address] [place], [place] [address] Rich Barrett Physician Ophthalmology 01/21/22 Gerson Reyes MD [address] [facility] [address] [place], [place] [phone] Neil Kent MD MD Dermatology 02/24/22 500 [place], [place] [phone] Roney Story, Assigned Musculoskeletal 03/20/22 DPM Provider [address] [facility] [address] [place], [place] [address] Erica Farrell Assigned Heart and 04/03/22 ARLENE Guidry CHEST PAINTING LEADER Vascular Provider 1700 [place] [address] Diana Desir, Assigned MTM Pharmacist 04/07/22 [facility] [address] [place] [address] documented as of this encounter
--- OUTSIDE RECORDS SUMMARY | 2022-04-28 01:07 | XMS_ITS | Encounter Summary ---
:2000 Author Organization [place] Address [address] [place] [address] Care Team Providers Name Role Phone Lita Oseguera Unavailable Unavailable Marija Edgar APRN REED OR WIND INSTRUMENT TUNER Primary Care Provider [phone] Marija Edgar APRN REED OR WIND INSTRUMENT TUNER Unavailable Keisha Dotson MD Unavailable Galo Burrell MD Unavailable Diana Desir [facility] Unavailable Rain Galaviz PA-C Unavailable [phone] Summer Lara MD Unavailable Tavia Wyatt MD Unavailable Unavailable Johnny Murillo MD Unavailable [phone] Erica Farrell APRN [facility] Unavailable [phone] Tavia Wyatt MD Unavailable Unavailable Diana Desir [facility] Unavailable Reason for Visit Reason Comments Other Entered automatically based on patient selection in [employer]. Encounter Details Date Type Department Care Team Description 01/10/2022 E-Visit M [facility] Virtual Ot her (Entered automatically Urgent Care based on shira... [address] [phone] Social History Tobacco Use Types Packs/Day Years [...] How often do you attend confucianism or sabianist services? Never 09/22/2021 Do you [...] 10 days, have you been in contact Unable to asse ss 01/05/2022 1:43 PM CDT with someone who was confirmed or suspected to have Coronavirus/COVID-19? documented as of this encounter Patient Instructions Patient InstructionsMarija Edgar APRN REED OR WIND INSTRUMENT TUNER - 01/10/2022 3:30 PM CDT Thank you for choosing us for your care. I have placed an order for a prescription so that you can start treatment. View your full visit summary for details by clicking on the link below. Your pharmacist will able to address any questions you may have about the medication. If you're not feeling better within 5-7 days, please schedule an appointment. You can schedule an appointment right here in [facility], or call [phone] If the visit is for the same symptoms as your eVisit, we'll refund the cost of your eVisit if seen within seven days. documented in this encounter Miscellaneous Notes Telephone Encounter - Marija Edgar APRN CNP - 01/12/2022 8:41 AM CDT Provider E-Visit time total (minutes): 5 documented in this encounter Plan of Treatment Upcoming Encounters Date Type Specialty Care Team Description 04/28/2022 Office Visit Family Practice Anthony Doe, ROVERTO [address] [place], [place] [phone] (Wo rk) 05/03/2022 Office Visit Dermatology Neil Kent M D [address] [place], [place] [address]015 (Wo rk) 05/05/2022 Office Visit Optometry Yeny David, OD [address] [facility] [address] [place] [phone] (Wo rk) 05/11/2022 Virtual Visit Pharm D Diana Desir , [facility] [address] [place], [place] [phone] (Wo rk) 05/14/2022 Office Visit Cardiology Livan Sharif MD [address] [facility] [address] [place], [place] [address] (Wo rk) 05/31/2022 Office Visit Family Practice Valery Veronica PA-C 909 [place], [place] [address] (Wo rk) documented as of this encounter Visit Diagnoses Diagnosis Cellulitis of other specified site - Peyton tidwell documented in this encounter Additional Health Concerns Assessment Noted Time PHQ-9 Depression Total Score: 2 12/18/2021 2:50 PM CDT documented as of this encounter Care Teams College Administrator Relationship Specialty Start Date End Date Marija Edgar, PCP - General Nurse Practitioner 04/30/20 BUSINESS PROJECT ANALYST REED OR WIND INSTRUMENT TUNER [address] [place], [place] [phone] Lita Oseguera Personal Advocate & 02/28/20 Liaison (PAL) Marija Edgar, Assigned PCP 06/08/20 BUSINESS PROJECT ANALYST REED OR WIND INSTRUMENT TUNER [address] [place], [place] [phone] Mauri, Melody Neuroscience 06/04/20 MD Keisha Provider [address] [place], [place] [address] Galo Burrell MD Assigned Heart and 10/05/20 04/02/22 6[address] [facility] Vascular Provider [address] [place], [place] [address] Diana Desir, Pharmacist Pharmacist 04/17/21 [facility] [address] [place] [address] Rain Galaviz Physician Pigment And Lacquer Mixer Dermatology 04/28/21 ROVERTO Paredes [address] [facility] [address] [place], [place] [phone] Summer Lara MD Assigned OBGYN Provider 05/31/21 03/12/22 [address] [facility] [address] [place], [place] [address] Tavia Wyatt MD Dermatology 07/14/21 Johnny Medrano Assigned Musculoskeletal 08/30/21 03/17/22 MD Ish Provider [address] [place], [place] [phone] Erica Farrell Nurse Practitioner Cardiovascular Disease 09/09/21 ARLENE Guidry REED OR WIND INSTRUMENT TUNER [address] [place], [place] [address] Tavia Wyatt, Assigned Surgical 11/29/21 Provider Diana Desir, Assigned MTM Pharmacist 01/02/22 03/26/22 [facility] [address] [place], [place] [phone] documented as of this encounter
--- OUTSIDE RECORDS SUMMARY | 2022-04-28 01:07 | XMS_ITS | Encounter Summary ---
:2000 Author Organization [facility] Address [address] [place] [address] Care Team Providers Name Role Phone Lita Oseguera Unavailable Unavailable Marija Edgar APRN BANK MANAGER Primary Care Provider [phone] Marija Edgar APRN BANK MANAGER Unavailable Keisha Dotson MD Unavailable Galo Burrell MD Unavailable Diana Desir [facility] Unavailable Rain Galaviz PA-C Unavailable [phone] Summer Lara MD Unavailable Tavia Wyatt MD Unavailable Unavailable Johnny Murillo MD Unavailable [phone] Erica Farrell PRINCIPAL DATABASE DEVELOPER BANK MANAGER Unavailable [phone] Tavia Wyatt MD Unavailable Unavailable Diana Desir [facility] Unavailable Rich Barrett MD Unavailable [phone] Neil Kent MD Unavailable Encounter Details Date Type Department Care Team Description 02/24/2022 Travel Social History Tobacco Use Types Packs/Day [...] week 09/22/2021 How often do you attend jehovah's witness or orthodox services? Never 09/22/2021 Do you belong to any clubs or organizations such as No 09/22/2021 jehovah's witness groups, unions, fraternal or athletic groups, or [...] place to sleep or slept in a group home (including now)? Education Answer Date Recorded [...] Office Visit Family Practice Anthony Doe PA-C [address] [place] [address] (Wo rk) 05/03/2022 Office Visit Dermatology Neil Kent M D 500 [place] [address] (Wo rk) 05/05/2022 Office Visit Optometry Yeny David, OD [address] [facility] [address] (Wo rk) 05/11/2022 Virtual Visit Pharm D Diana Desir , [facility] [address] [place], [place] [address] (Wo rk) 05/14/2022 Office Visit Cardiology Livan Sharif MD [address] [facility] [address] [place], [place] [address] (Wo rk) 05/31/2022 Office Visit Family Practice Valery Veronica , PA-C [address] [place], [place] [phone] (Wo rk) documented as of this encounter Visit Diagnoses Not on filedocumented in this encounter Additional Health Concerns Infection Onset Date Last Indicated Resolved Time Rule Out COVID-19 02/24/2022 02/24/2022 02/25/2022 1:0 8 PM CDT Assessment Noted Time PHQ-9 Depression Total Score: 2 12/18/2021 2:50 PM CDT documented as of this encounter Care Teams Die Cast Technician Relationship Specialty Start Date End Date Marija Edgar, PCP - General Nurse Practitioner 04/30/20 PRINCIPAL DATABASE DEVELOPER BANK MANAGER [address] [place] [address] Lita Oseguera Personal Advocate & 02/28/20 Liaison (PAL) Marija Edgar, Assigned PCP 06/08/20 PRINCIPAL DATABASE DEVELOPER BANK MANAGER [address] [place], [place] [phone] Mauri, Melody Neuroscience 06/04/20 MD Keisha Provider 909 [place] [address] Galo Burrell MD Assigned Heart and 10/05/20 04/02/22 [address] [facility] Vascular Provider [address] [place] [address] Diana Desir, Pharmacist Pharmacist 04/17/[address] [address] Rain Galaviz Physician Trumpet Teacher Dermatology 04/28/21 ROVERTO Paredes [address] [place] [address] [address] [place], [place] [phone] Summre Lara MD Assigned OBGYN Provider 05/31/21 03/12/[address] [place], [place] [address] Tavia Wyatt MD Dermatology 07/14/21 Johnny Medrano Assigned Musculoskeletal 08/30/21 03/17/22 MD Ish Provider [facility] [address] [address] Erica Farrell Nurse Practitioner Cardiovascular Disease 09/09/21 ARLENE Guidry BANK MANAGER [address] [facility] [address] [address] Tavia Wyatt, Assigned Surgical 11/29/21 MD Provider Diana Desir, Assigned MTM Pharmacist 01/02/22 03/26/22 [facility] [address] [place] [id number] Rich Barrett Physician Ophthalmology 01/21/22 Gerson Reyes MD [address] [facility] [address] [place], [place] [address] Neil Kent MD MD [facility] 02/24/22 500 [place] [address] documented as of this encounter
--- OUTSIDE RECORDS SUMMARY | 2022-04-28 01:07 | XMS_ITS | Encounter Summary ---
:2000 Author Organization [place] Address [address] [place] [address] Care Team Providers Name Role Phone Lita Oseguera Unavailable Unavailable Marija Edgar APRN FINANCIAL INVESTMENT ADVISER Primary Care Provider [phone] Marija Edgar APRN FINANCIAL INVESTMENT ADVISER Unavailable Keisha Dotson MD Unavailable Galo Burrell MD Unavailable Diana Desir [facility] Unavailable Rain Galaviz PA-C Unavailable [phone] Summer Lara MD Unavailable Tavia Wyatt MD Unavailable Unavailable Johnny Murillo MD Unavailable [phone] Erica Farrell APRN FINANCIAL INVESTMENT ADVISER Unavailable [phone] Tavia Wyatt MD Unavailable Unavailable Reason for Visit Reason Onset Date Comments Forms 12/16/2021 Encounter Details Date Type Department Care Team Description 12/16/2021 Telephone [facility] Keihsa Dotson, Forms [address] [place], [place] [phone] [place] [address] (Wo rk) Social History Tobacco Use Types [...] week 09/22/2021 How often do you attend methodist or temple services? Never 09/22/2021 Do you belong to any clubs or organizations such as No 09/22/2021 methodist groups, unions, fraternal or athletic groups, or [...] for the very basics like Not v andery hard 09/22/2021 food, housing, medical care, and [...] in contact with No / Unsu re 12/24/2021 9:43 AM CDT someone who was confirmed or suspected to have Coronavirus/COVID-19? documented as of this encounter Miscellaneous Notes Telephone Encounter - Yfn Peck MA - 12/28/2021 2:14 PM CDT DMV form signed, faxed to [employer] on 12/28/2021, sent to scanning, and copy mailed to patient. Telephone Encounter - Kyara De La Fuente RN - 12/24/2021 3:39 PM CDT 12/24/21: DMV form was prepared. Telephone Encounter - Yfn Peck MA - 12/16/2021 2:29 PM CDT Received DMV form to be completed , form saved to [address] and encounter routed. documented in this encounter Plan of Treatment Upcoming Encounters Date Type Specialty Care Team Description 04/28/2022 Office Visit [facility] Anthony Doe, PAUcheC [address] [place], [place] [phone] (Wo rk) 05/03/2022 Office Visit Dermatology Neil Kent M D 500 [place] [address] (Wo rk) 05/05/2022 Office Visit Optometry Yeny David, OD [address] [facility] [address] [place] [phone] (Wo rk) 05/11/2022 Virtual Visit Pharm D Diana Desir , [facility] [address] [place], [place] [phone] (Wo rk) 05/14/2022 Office Visit Cardiology Livan Sharif MD [address] , [facility] [address] [place], [place] [address] (Wo rk) 05/31/2022 Office Visit [facility] JeremíasValery damon PA-C 909 [place] [address] (Wo rk) documented as of this encounter Visit Diagnoses Not on filedocumented in this encounter Additional Health Concerns Infection Onset Date Last Indicated Resolved Time Rule Out COVID-19 12/18/2021 12/18/2021 12/19/2021 11: 34 AM CDT Assessment Noted Time PHQ-9 Depression Total Score: 2 04/02/2021 10:19 AM CD T documented as of this encounter Care Teams Restoration Silversmith Relationship Specialty Start Date End Date Marija Edgar, PCP - General Nurse Practitioner 04/30/20 FITNESS SPECIALIST FINANCIAL INVESTMENT ADVISER [address] [place], [place] [phone] Lita Oseguera Personal Advocate & 02/28/20 Liaison (PAL) Marija Edgar, Assigned PCP 06/08/20 FITNESS SPECIALIST FINANCIAL INVESTMENT ADVISER [address] [place], [place] [phone] Mauri, Assigned Neuroscience 06/04/20 MD Keisha Provider 909 [place], [place] [address] Galo Burrell MD Assigned Heart and 10/05/20 04/02/22 [address] Vascular Provider [address] [place] [address] Diana Desir, Pharmacist Pharmacist 04/17/21 [facility] [address] [place] [address] Rain Galaviz Physician Commercial Sales Manager Dermatology 04/28/21 ROVERTO Paredes [address] [facility] [address] [place] [facility] [phone] Summer Lara MD Assigned OBGYN Provider 05/31/21 03/12/[address] [place], [place] [address] Tavia Wyatt MD Dermatology 07/14/21 Johnny Medrano Assigned Musculoskeletal 08/30/21 03/17/22 MD Ish Provider [address] [place] [address] Erica Farrell Nurse Practitioner Cardiovascular Disease 09/09/21 ARLENE Guidry FINANCIAL INVESTMENT ADVISER [address] [facility] [address] [place], [place] [address] Tavia Wyatt, Assigned Surgical 11/29/21 Provider documented as of this encounter
--- OUTSIDE RECORDS SUMMARY | 2022-04-28 01:07 | XMS_ITS | Encounter Summary ---
:2000 Author Organization [place] Address [address] [place] [address] Care Team Providers Name Role Phone Lita Oseguera Unavailable Unavailable Marija Edgar APRN CLINICAL ESTHETICIAN Primary Care Provider [phone] Marija Edgar APRN CLINICAL ESTHETICIAN Unavailable Keisha Dotson MD Unavailable Galo Burrell MD Unavailable Diana Desir [facility] Unavailable Rain Galaviz PA-C Unavailable [phone] Summer Lara MD Unavailable Tavia Wyatt MD Unavailable Unavailable Johnny Murillo MD Unavailable [phone] Erica Farrell [facility] Unavailable [phone] Tavia Wyatt MD Unavailable Unavailable Daina Desir [facility] Unavailable Rich Barrett MD Unavailable [phone] Encounter Details Date Type Department Care Team Description 01/23/2022 Travel Social History Tobacco Use Types Packs/Day [...] week 09/22/2021 How often do you attend spiritism or yazidi services? Never 09/22/2021 Do you belong to any clubs or organizations such as No 09/22/2021 spiritism groups, unions, fraternal or athletic groups, or [...] in contact with No / Unsu re 01/23/2022 12:05 AM CDT someone who was confirmed or suspected to have Coronavirus/COVID-19? documented as of this encounter Plan of Treatment Upcoming Encounters Date Type Specialty Care Team Description 04/28/2022 Office Visit Family Practice Anthony Doe PA-C [address] [facility] [place] [address] (Wo rk) 05/03/2022 Office Visit Dermatology Neil Kent M D [address] [place] [address] (Wo rk) 05/05/2022 Office Visit Optometry Yeny David, OD [address] [facility] [address] [place] [id number] (Wo rk) 05/11/2022 Virtual Visit Pharm D Diana Desir , [facility] [address] [place], [place] [address] (Wo rk) 05/14/2022 Office Visit Cardiology Livan Sharif MD [address], [address] [place] [address] (Wo rk) 05/31/2022 Office Visit Family Practice Valery Veronica , PA-C 909 [place], [place] [phone] (Wo rk) documented as of this encounter Visit Diagnoses Not on filedocumented in this encounter Additional Health Concerns Assessment Noted Time PHQ-9 Depression Total Score: 2 12/18/2021 2:50 PM CDT documented as of this encounter Care Teams Meteorological Engineer Relationship Specialty Start Date End Date Marija Edgar, PCP - General Nurse Practitioner 04/30/20 DRY CLEANER HELPER CLINICAL ESTHETICIAN [address] [place] [address] Lita Oseguera Personal Advocate & 02/28/20 Liaison (PAL) Marija Edgar, Assigned PCP 06/08/20 DRY CLEANER HELPER CLINICAL ESTHETICIAN [address] [place], [place] [phone] Mauri, Melody Neuroscience 06/04/20 MD Keisha Provider 9 [place], [place] [address] Galo Burrell MD Assigned Heart and 10/05/20 04/02/22 [address] Vascular Provider [address] [place] [address] Diana Desir, Pharmacist Pharmacist 04/17/21 [facility] 3033 [place] [address] Rain Galaviz Physician Team Assembly Line Machine Operator Dermatology 04/28/21 ROVERTO Paredes [address] [place] [address] [address] [facility] [facility] [place] [phone] Summer Lara MD Assigned OBGYN Provider 05/31/21 03/12/[address] [place], [place] [address] Tavia Wyatt MD Dermatology 07/14/21 Johnny Medrano Assigned Musculoskeletal 08/30/21 03/17/22 MD Ish Provider [facility] [address] [place], [place] [address] Erica Farrell Nurse Practitioner Cardiovascular Disease 09/09/21 ARLENE Guidry CLINICAL ESTHETICIAN [address] [place] [address] Tavia Wyatt, Assigned Surgical 11/29/21 MD Provider Diana Desir, Assigned MTM Pharmacist 01/02/22 03/26/22 [facility] 3033 [place] [address] Rich Barrett Physician Ophthalmology 01/21/22 Gerson Reyes MD 6 [facility] 9A [place], [place] [address] documented as of this encounter
--- OUTSIDE RECORDS SUMMARY | 2022-04-28 01:07 | XMS_ITS | Encounter Summary ---
:2000 Author Organization [place] Address [address] [place] [address] Care Team Providers Name Role Phone Lita Oseguera Unavailable Unavailable Marija Edgar APRN QUALITY PROCESS LEAD Primary Care Provider [phone] Marija Edagr APRN QUALITY PROCESS LEAD Unavailable Keisha Dotson MD Unavailable Galo Burrell MD Unavailable Diana Desir [facility] Unavailable Rain Galaviz PA-C Unavailable [phone] Summer Lara MD Unavailable Tavia Wyatt MD Unavailable Unavailable Johnny Murillo MD Unavailable [phone] Erica Farrell APRN QUALITY PROCESS LEAD Unavailable [phone] Tavia Wyatt MD Unavailable Unavailable Diana Desir [facility] Unavailable Rich Barrett MD Unavailable [phone] Neil Kent MD Unavailable Roney StoryM Unavailable Erica Farrell APRN QUALITY PROCESS LEAD Unavailable [phone] Diana Desir [facility] Unavailable Encounter Details Date Type Department Care Team Description 12/18/2021 Telephone [facility] Lauren Claudio PA-C [address] [address] [place], [place] [address]-7283 [phone] Social History Tobacco Use Types Packs/Day Years [...] week 09/22/2021 How often do you attend faith or restoration services? Never 09/22/2021 Do you belong to any clubs or organizations such as No 09/22/2021 faith groups, unions, fraternal or athletic groups, or [...] in contact with No / Unsu re 12/18/2021 2:40 PM CDT someone who was confirmed or suspected to have Coronavirus/COVID-19? documented as of this encounter Miscellaneous Notes Telephone Encounter - Amalia Deluca Adam - 12/18/2021 11:00 AM CDTSummary: TODAY APPT REQUEST Reason for Call: Other call back Detailed comments: PATIENT HAS APPT WITH Elie CLAUDIO AT 3:10 TODAY, SHE WANTS TO BRING HER DAUGHTER IVONNE CHECKED TOO. I EXPLAINED AN APPT IS NEEDED. SHE DECLINED SCHEDULING, WANTS TO TALK TO STAFF AT CLINIC Phone Number Patient can be reached at: Home number on file [phone] (home) Best Time: ANYTIME Can we leave a detailed message on this number? YES Call taken on 12/18/2021 at 11:01 AM by Amalia Deluca documented in this encounter Plan of Treatment Upcoming Encounters Date Type Specialty Care Team Description 04/28/2022 Office Visit Family Practice Anthony Doe, ROVERTO [address] [place], [place] [phone] (Wo rk) 05/03/2022 Office Visit Dermatology Neil Kent M D [address] [place], [place] [phone] (Wo rk) 05/05/2022 Office Visit Optometry Yeny David, OD [address] [facility] [address] [place] [phone] (Wo rk) 05/11/2022 Virtual Visit Pharm D Diana Desir , [facility] [address] [place], [place] [address] (Wo rk) 05/14/2022 Office Visit Cardiology Livan Sharif MD [address] [place] [address] (Wo rk) 05/31/2022 Office Visit Family Practice Valery Veronica PA-C 909 [place], [place] [address] (Wo rk) documented as of this encounter Visit Diagnoses Not on filedocumented in this encounter Additional Health Concerns Infection Onset Date Last Indicated Resolved Time Rule Out COVID-19 12/18/2021 12/18/2021 12/19/2021 11: 34 AM CDT Rule Out COVID-19 02/24/2022 02/24/2022 02/25/2022 1:0 8 PM CDT Rule Out COVID-19 04/26/2022 04/26/2022 04/26/2022 6:4 7 AM CDT Assessment Noted Time PHQ-9 Depression Total Score: 2 12/18/2021 2:50 PM CDT documented as of this encounter Care Teams Ceramics Artist Relationship Specialty Start Date End Date Marija Edgar, PCP - General Nurse Practitioner 04/30/20 AIR BRAKE WORKER QUALITY PROCESS LEAD [address] [place] [address] Lita Oseguera Personal Advocate & 02/28/20 Liaison (PAL) Marija Edgar, Assigned PCP 06/08/20 AIR BRAKE WORKER QUALITY PROCESS LEAD [address] [place] [address] Mauri, Assigned Neuroscience 06/04/20 MD Keisha Provider 909 [place] [address] Galo Burrell MD Assigned Heart and 10/05/20 04/02/22 [address] Vascular Provider [address] [place] [address] Diana Desir, Pharmacist Pharmacist 04/17/21 [facility] 30[address] [place], [place] [phone] Rain Galaviz Physician Ob Tech Dermatology 04/28/21 ROVERTO Paredes [address] [place] [address] DR [address] [place], [place] [phone] Summer Lara MD Assigned OBGYN Provider 05/31/21 03/12/[address] [place] [address] Tavia Wyatt MD Dermatology 07/14/21 Johnny Medrano Assigned Musculoskeletal 08/30/21 03/17/22 MD Ish Provider [address] [place] [address] Erica Farrell Nurse Practitioner Cardiovascular Disease 09/09/21 ARLENE Guidry QUALITY PROCESS LEAD [address] [facility] [address] [place], [place] [address] Tavia Wyatt, Assigned Surgical 11/29/21 Provider Diana Desir, Assigned MTM Pharmacist 01/02/22 03/26/22 [facility] [address] [place] [address] Rich Barrett Physician Ophthalmology 01/21/22 Gerson Reyes MD [address] [facility] 9A [place] [address] Neil Kent MD MD Dermatology 02/24/22 500 [place] [address] Roney Story, Assigned Musculoskeletal 03/20/22 DPM Provider [address] [facility] [address] [place] [address] Erica Farrell Assigned Heart and 04/03/22 ARLENE Guidry [facility] Vascular Provider 1700 [place], [place] [phone] Diana Desir, Assigned MTM Pharmacist 04/07/22 [facility] 30[address] [place], [place] [address] documented as of this encounter
--- OUTSIDE RECORDS SUMMARY | 2022-04-28 01:07 | XMS_ITS | Encounter Summary ---
:2000 Author Organization [place] Address [address] [place] [address] Care Team Providers Name Role Phone Lita Oseguera Unavailable Unavailable Marija Edgar APRN COAL DRIER OPERATOR Primary Care Provider [phone] Marija Edgar APRN COAL DRIER OPERATOR Unavailable Keisha Dotson MD Unavailable Galo Burrell MD Unavailable Diana Desir [facility] Unavailable Rain Galaviz PA-C Unavailable [phone] Summer Lara MD Unavailable Tavia Wyatt MD Unavailable Unavailable Johnny Murillo MD Unavailable [phone] Erica Farrell [facility]MENT [facility] Unavailable [phone] Tavia Wyatt MD Unavailable Unavailable Diana Desir [facility] Unavailable Rich Barrett MD Unavailable [phone] Encounter Details Date Type Department Care Team Description 01/21/2022 Travel Social History Tobacco Use Types Packs/Day [...] week 09/22/2021 How often do you attend yazdanism or shinto services? Never 09/22/2021 Do you belong to any clubs or organizations such as No 09/22/2021 yazdanism groups, unions, fraternal or athletic groups, or [...] place to sleep or slept in a detention (including now)? Education Answer Date Recorded What is the highest level of school you have completed or 12 th grade 08/07/2020 the highest degree you have received? Sex Assigned at Date Recorded Female 03/02/2021 5:45 PM CDT COVID-19 Exposure Response Date Recorded In the last 10 days, have you been in contact with No / Unsu re 01/21/2022 8:28 AM CDT someone who was confirmed or suspected to have Coronavirus/COVID-19? documented as of this encounter Plan of Treatment Upcoming Encounters Date Type Specialty Care Team Description 04/28/2022 Office Visit Family Practice Anthony Doe PA-C [address] [facility] [place] [place] [address] (Wo rk) 05/03/2022 Office Visit Dermatology Neil Kent M D [address] [place] [address] (Wo rk) 05/05/2022 Office Visit Optometry Yeny David, OD [address] [facility] [address] [place] [phone] (Wo rk) 05/11/2022 Virtual Visit Pharm D Diana Desir , [facility] [address] [place], [place] [address] (Wo rk) 05/14/2022 Office Visit Cardiology Livan Sharif MD [address], [address] [place] [address] (Wo rk) 05/31/2022 Office Visit Family Practice Valery Veronica , PA-C 909 [place], [place] [phone] (Wo rk) documented as of this encounter Visit Diagnoses Not on filedocumented in this encounter Additional Health Concerns Assessment Noted Time PHQ-9 Depression Total Score: 2 12/18/2021 2:50 PM CDT documented as of this encounter Care Teams Piping Drafter Relationship Specialty Start Date End Date Marija Edgar, PCP - General Nurse Practitioner 04/30/20 CONTROL EQUIPMENT ELECTRICIAN COAL DRIER OPERATOR [address] [place] [address] Lita Oseguera Personal Advocate & 02/28/20 Liaison (PAL) Marija Edgar, Assigned PCP 06/08/20 CONTROL EQUIPMENT ELECTRICIAN COAL DRIER OPERATOR [address] [place], [place] [phone] Mauri, Melody Neuroscience 06/04/20 MD Keisha Provider 9 [place], [place] [address] Galo Burrell MD Assigned Heart and 10/05/20 04/02/22 [address] Vascular Provider [address] [place] [address] Diana Desir, Pharmacist Pharmacist 04/17/21 [facility] 3033 [place] [address] Rain Galaviz Physician Refractory Worker Dermatology 04/28/21 ROVERTO Paredes [address] [place] [address] [address] [facility] [facility] [phone] Summer Lara MD Assigned OBGYN Provider 05/31/21 03/12/[address] [place], [place] [address] Tavia Wyatt MD Dermatology 07/14/21 Johnny Medrano Assigned Musculoskeletal 08/30/21 03/17/22 MD Ish Provider [facility] [place] [address] [place], [place] [address] Erica Farrell Nurse Practitioner Cardiovascular Disease 09/09/21 ARLENE Guidry COAL DRIER OPERATOR [address] [place] [address] Tavia Wyatt, Assigned Surgical 11/29/21 MD Provider Diana Desir, Assigned MTM Pharmacist 01/02/22 03/26/22 [facility] 3033 [place] [address] Rich Barrett Physician Ophthalmology 01/21/22 Gerson Reyes MD 6 [facility] 9A [place], [place] [address] documented as of this encounter
--- OUTSIDE RECORDS SUMMARY | 2022-04-28 01:07 | XMS_ITS | Encounter Summary ---
:2000 Author Organization [place] Address [address] [place] [address] Care Team Providers Name Role Phone Lita Oseguera Unavailable Unavailable Marija Edgar APRN BISCUIT PACKER Primary Care Provider [phone] Marija Edgar APRN BISCUIT PACKER Unavailable Keisha Dotson MD Unavailable Galo Burrell MD Unavailable Diana Desir [facility] Unavailable Rain Galaviz PA-C Unavailable [phone] Summer Lara MD Unavailable Tavia Wyatt MD Unavailable Unavailable Johnny Murillo MD Unavailable [phone] Erica Farrell SALES SUPPORT COORDINATOR BISCUIT PACKER Unavailable [phone] Tavia Wyatt MD Unavailable Unavailable Encounter Details Date Type Department Care Team Description 12/18/2021 Travel Social History Tobacco Use Types Packs/Day [...] week 09/22/2021 How often do you attend quaker or oriental orthodox services? Never 09/22/2021 Do you belong to any clubs or organizations such as No 09/22/2021 quaker groups, unions, fraternal or athletic groups, or [...] Office Visit Family Practice Anthony Doe PA-C [address] [place] [address] (Wo rk) 05/03/2022 Office Visit Dermatology Neil Kent M D 500 [place], [place] [address] (Wo rk) 05/05/2022 Office Visit Optometry Yeny David, OD [address] [facility] [place] [address] (Wo rk) 05/11/2022 Virtual Visit Pharm D Diana Desir , [facility] [address] [place] [address] (Wo rk) 05/14/2022 Office Visit Cardiology Livan Sharif MD [address] [place], [place] [address] (Wo rk) 05/31/2022 Office Visit Family Practice Valery Veronica , PAUcheC 909 [place], [place] [address] (Wo rk) documented as of this encounter Visit Diagnoses Not on filedocumented in this encounter Additional Health Concerns Infection Onset Date Last Indicated Resolved Time Rule Out COVID-19 12/18/2021 12/18/2021 12/19/2021 11: 34 AM CDT Assessment Noted Time PHQ-9 Depression Total Score: 2 12/18/2021 2:50 PM CDT documented as of this encounter Care Teams Household Appliances Salesperson Relationship Specialty Start Date End Date Marija Edgar, PCP - General Nurse Practitioner 04/30/20 SALES SUPPORT COORDINATOR BISCUIT PACKER [address] [place] [address] Lita Oseguera Personal Advocate & 02/28/20 Liaison (PAL) Marija Edgar, Assigned PCP 06/08/20 SALES SUPPORT COORDINATOR BISCUIT PACKER [address] [place], [place] [phone] Mauri, Assigned Neuroscience 06/04/20 MD Keisha Provider 909 [place] [address] Galo Burrell MD Assigned Heart and 10/05/20 04/02/[address] Vascular Provider [address] [place] [address] Diana Desir, Pharmacist Pharmacist 04/17/21 [facility] [address] [facility] [address] Rain Galaviz Physician Continuing Education Dean Dermatology 04/28/21 ROVERTO Paredes [address] [facility] [address] [place], [place] [phone] Summer Lara MD Assigned OBGYN Provider 05/31/21 03/12/[address] [place], [place] [address] Tavia Wyatt MD Dermatology 07/14/21 Johnny Medrano Assigned Musculoskeletal 08/30/21 03/17/22 MD Ish Provider [address] [place], [place] [address] Erica Farrell Nurse Practitioner Cardiovascular Disease 09/09/21 ARLENE Guidry BISCUIT PACKER [address] [facility] [place] [address] Tavia Wyatt, Assigned Surgical 11/29/21 Provider documented as of this encounter
--- OUTSIDE RECORDS SUMMARY | 2022-04-28 01:07 | XMS_ITS | Encounter Summary ---
:2000 Author Organization [place] Address [address] [place] [address] Care Team Providers Name Role Phone Lita Oseguera Unavailable Unavailable Marija Edgar APRN TEEN COUNSELOR Primary Care Provider [phone] Marija Edgar APRN TEEN COUNSELOR Unavailable Keisha Dotson MD Unavailable Galo Burrell MD Unavailable Diana Desir [facility] Unavailable Rain Galaviz PA-C Unavailable [phone] Summer Lara MD Unavailable Tavia Wyatt MD Unavailable Unavailable Johnny Murillo MD Unavailable [phone] Erica Farrell CUSTOMER OPERATIONS MANAGER TEEN COUNSELOR Unavailable [phone] Tavia Wyatt MD Unavailable Unavailable Encounter Details Date Type Department Care Team Description 11/30/2021 Travel Social History Tobacco Use Types Packs/Day [...] How often do you attend methodist or anabaptist services? Never 09/22/2021 Do you belong to [...] in contact with No / Unsu re 11/12/2021 5:01 PM CDT someone who was confirmed or suspected to have Coronavirus/COVID-19? documented as of this encounter Plan of Treatment Upcoming Encounters Date Type Specialty Care Team Description 04/28/2022 Office Visit Family Practice Anthony Doe PA-C [address] [place] [address] (Wo rk) 05/03/2022 Office Visit Dermatology Neil Kent M D 500 [place], [place] [address]45 (Wo rk) 05/05/2022 Office Visit Optometry Yeny David, OD [address] [facility] [place] [address] (Wo rk) 05/11/2022 Virtual Visit Pharm D Diana Desir , [facility] [address] [place] [address] (Wo rk) 05/14/2022 Office Visit Cardiology Livan Sharif MD [address] [place], [place] [address] (Wo rk) 05/31/2022 Office Visit Family Practice Valery Veronica , PA-C 909 [place], [place] [address] (Wo rk) documented as of this encounter Visit Diagnoses Not on filedocumented in this encounter Additional Health Concerns Assessment Noted Time PHQ-9 Depression Total Score: 2 04/02/2021 10:19 AM CD T documented as of this encounter Care Teams Round Boner Relationship Specialty Start Date End Date Marija Edgar, PCP - General Nurse Practitioner 04/30/20 CUSTOMER OPERATIONS MANAGER TEEN COUNSELOR [address] [place] [address] Lita Oseguera Personal Advocate & 02/28/20 Liaison (PAL) Marija Edgar, Assigned PCP 06/08/20 CUSTOMER OPERATIONS MANAGER TEEN COUNSELOR [address] [place] [address] Mauri, Melody Neuroscience 06/04/20 MD Keisha Provider 909 [place] [address] Galo Burrell MD Assigned Heart and 10/05/20 04/02/22 [address] Vascular Provider [address] [place] [address] Desir, Diana T, Pharmacist Pharmacist 04/17/21 [facility] [address] [place] [address] Rain Galaviz Physician Butter Melter Dermatology 04/28/21 ROVERTO Paredes [address] [facility] [address] [place] [address] Summer Lara MD Assigned OBGYN Provider 05/31/21 03/12/[address] [place], [place] [address] Tavia Wyatt MD Dermatology 07/14/21 Johnny Medrano Assigned Musculoskeletal 08/30/21 03/17/22 MD Ish Provider [address] [place], [place] [phone] Erica Farrell Nurse Practitioner Cardiovascular Disease 09/09/21 ARLENE Guidry TEEN COUNSELOR [address] [facility] [address] [place], [place] [address] Tavia Wyatt, Assigned Surgical 11/29/21 Provider documented as of this encounter
--- OUTSIDE RECORDS SUMMARY | 2022-04-28 01:07 | XMS_ITS | Encounter Summary ---
:2000 Author Organization [facility] Address [address] [place] [address] Care Team Providers Name Role Phone Lita Oseguera Unavailable Unavailable Marija Edgar APRN STEEPING PRESS TENDER Primary Care Provider [phone] Marija Edgar APRN STEEPING PRESS TENDER Unavailable Keisha Dotson MD Unavailable Galo Burrell MD Unavailable Diana Desir [facility] Unavailable Rain Galaviz PA-C Unavailable [phone] Summer Lara MD Unavailable Tavia Wyatt MD Unavailable Unavailable Johnny Murillo MD Unavailable [phone] Erica Farrell APRN [facility] Unavailable [phone] Tavia Wyatt MD Unavailable Unavailable Diana Desir [facility] Unavailable Reason for Visit Reason Comments Medication Therapy Management Encounter Details Date Type Department Care Team Description 01/04/2022 Virtual Visit [facility] Diana Desir, Anxi ety (Primary Dx); Clinic [facility] Moderate major depression (H) [address] [address] [phone] (Wo rk) Social History Tobacco Use Types [...] How often do you attend gnosticism or oriental orthodox services? Never 09/22/2021 Do [...] of this encounter Patient Instructions Patient InstructionsWDiana nuñez, [facility] - 01/04/2022 2:00 PM CDT Recommendations from today's MTM visit: Increase paroxetine 40 mg daily. It was great speaking with you today. I value your experience and would be very thankful for your time in providing feedback in our clinic survey. In the next few days, you may receive an email or textmessage from [facility] [employer] with a link to a survey related to your ???clinical pharmacist. To schedule another MTM appointment, please call the clinic directly or you may call the MTM scheduling line at [phone] or toll-free at . My Clinical Pharmacist's contact information: Please feel free to contact me with any questions or concerns you have. Diana Desir, Lorna Medication Therapy Management Provider, [facility] documented in this encounter Progress Notes Diana Desir RPH - 01/04/2022 2:00 PM CDT Medication Therapy Management (MTM) Encounter ASSESSMENT: Medication Adherence/Access: No issues identified Anxiety/Depression: Will continue to increase paroxetine dose for further assistance with anxiety/depression and OCD like tendencies to decrease use of lorazepam. Pharmacokinetic Gene Variants Gene Phenotype Notable Medications Impacted CYP2C9 Intermediate Metabolizer fluoxetine MTHFR Reduced Conversion Pharmacodynamic Gene Variants Gene Phenotype Notable Medications Impacted SLC6A4 Intermediate Response Sertraline and other SSRIs ADRA2A Moderately Reduced Response PLAN: 1. Increase paroxetine to 40 mg daily at bedtime. Follow-up: Return in about 1 month (around 02/03/2022) for Medication Therapy Management Pharmacist. SUBJECTIVE/OBJECTIVE: Kim Johnson is a 21 year old female called for a follow-up visit. Today's visit is a follow-up MTM visit from 12/14. Reason for visit: paroxetine follow-up Tobacco: She reports that she quit smoking about 2 years ago. Her smoking use included other. She smoked 1.00 pack per day. She has never used smokeless tobacco. Alcohol: not currently using Medication Adherence/Access: no issues reported Anxiety/Depression: Current medications include: paroxetine 30 mg daily at bedtime and lorazepam 0.5mg as needed (minimizing use, needing about twice weekly still, off and on). Doing good since off sertraline still. Still getting anxious but does feel the paroxetine is working and helping. Improved now vs 2-3 months ago. No more panics. Feels higher dose is somewhat helping more than lower dose. She's missed a dose by accident once and notices worsened anxiety. Going through some stress with daughters father. Overthinks a lot, worries a lot. Still , will be done in a couple months. no side effects so far from paroxetine except more dreams lately. Lorazepam really helps for panic. Following therapist and did see psychiatrist. No longer seeing psychiatrist so when refilling lorazepam, will need to get from PCP office instead of psychiatry. Past med trial: Buspirone (made her feel [...] patient's provider(s). The patient was sent via [employer] a summary of these recommendations. Diana Desir, Luis AlbertoD Medication Therapy Management Provider, [facility] Pager: [phone] Telemedicine Visit Details Type of service: Telephone visit Start Time: 2:14 PM End Time: 2:24 PM Originating Location (patient location): Home Distant Location (provider location): [facility] Medication Therapy Recommendations Moderate major depression (H) Current Medication: PARoxetine (PAXIL) 30 MG tablet (Discontinued) Rationale: Dose too low - Dosage too low - Effectiveness Recommendation: Increase Dose - PARoxetine 40 MG tablet Status: Accepted per CPA documented in this encounter Plan of Treatment Upcoming Encounters Date Type Specialty Care Team Description 04/28/2022 Office Visit [facility] Anthony Doe PAUcheC [address] [place] [address] (Wo rk) 05/03/2022 Office Visit Dermatology Neil Kent M D [address] [place] [address] (Wo rk) 05/05/2022 Office Visit Optometry Yeny David, OD [address] [place] [phone] (Wo rk) 05/11/2022 Virtual Visit Pharm D Diana Desir , [facility] [address] [place], [place] [address] (Wo rk) 05/14/2022 Office Visit Cardiology Livan Sharif MD [address] [facility] [address] [place], [place] [address] (Wo rk) 05/31/2022 Office Visit [facility] Valery Veronica PA-C [address] [place] [address] (Wo rk) documented as of this encounter Visit Diagnoses Diagnosis Anxiety - Primary Anxiety state, unspecified Moderate major depression (H) Major depressive disorder, single episod e, moderate documented in this encounter Additional Health Concerns Assessment Noted Time PHQ-9 Depression Total Score: 2 12/18/2021 2:50 PM CDT documented as of this encounter Care Teams International Representative Relationship Specialty Start Date End Date Marija Edgar PCP - General Nurse Practitioner 04/30/20 RESEARCH QUALITY ASSURANCE ANALYST STEEPING PRESS TENDER [address] [place], [place] [phone] Lita Oseguera Personal Advocate & 02/28/20 Liaison (PAL) Marija Edgar, Assigned PCP 06/08/20 RESEARCH QUALITY ASSURANCE ANALYST STEEPING PRESS TENDER [address] [place], [place] [phone] Mauri, Assigned Neuroscience 06/04/20 MD Keisha Provider [address] [place] [place], [place] [address] Galo Burrell MD Assigned Heart and 10/05/20 04/02/[address] Vascular Provider [address] [place], [place] [address] Diana Desir, Pharmacist Pharmacist 04/17/[address] [facility] [address] [place], [place] [address] Rain Galaviz Physician Sole Cutter Dermatology 04/28/21 ROVERTO Paredes [address] [place], [place] [phone] Summer Lara MD Assigned OBGYN Provider 05/31/21 03/12/[address] [place], [place] [address] Tavia Wyatt MD Dermatology 07/14/21 Johnny Medrano Assigned Musculoskeletal 08/30/21 03/17/22 MD Ish Provider [address] [place], [place] [phone] Erica Farrell Nurse Practitioner Cardiovascular Disease 09/09/21 ARLENE Guidry STEEPING PRESS TENDER [address] [place] [address] Tavia Wyatt, Assigned Surgical 11/29/21 MD Provider Diana Desir, Assigned MTM Pharmacist 01/02/22 03/26/[address] [facility] [address] [place] [address] documented as of this encounter
--- OUTSIDE RECORDS SUMMARY | 2022-04-28 01:07 | XMS_ITS | Encounter Summary ---
:2000 Author Organization [facility] Address [address] [place] [address] Care Team Providers Name Role Phone Lita Oseguera Unavailable Unavailable Marija Edgar APRN SUPERVISOR WELDING EQUIPMENT REPAIRER Primary Care Provider [phone] Marija Edgar APRN SUPERVISOR WELDING EQUIPMENT REPAIRER Unavailable Keisha Dotson MD Unavailable Galo Burrell MD Unavailable Diana Desir [facility] Unavailable Rain Galaviz PA-C Unavailable [phone] Summer Lara MD Unavailable Tavia Wyatt MD Unavailable Unavailable Johnny Murillo MD Unavailable [phone] Erica Farrell [facility] Unavailable [phone] Tavia Wyatt MD Unavailable Unavailable Diana Desir [facility] Unavailable Encounter Details Date Type Department Care Team Description 01/05/2022 Travel Social History Tobacco Use Types Packs/Day [...] How often do you attend buddhism or hoahaoism services? Never 09/22/2021 Do you belong to [...] Office Visit Family Practice Anthony Doe PA-C [address] [place] [address] (Wo aldo) 05/03/2022 Office Visit Dermatology Neil Kent M D [address] [place], [place] [address] (Jefferson carlson) 05/05/2022 Office Visit Optometry Yeny David, OD [address] [place], [place] [phone] (Wo rk) 05/11/2022 Virtual Visit Pharm Diana Eckert , [facility] [address] [place] [address] (Wo rk) 05/14/2022 Office Visit Cardiology Livan Sharif MD [address], [address] [place] [address] (Wo rk) 05/31/2022 Office Visit Family Practice Valery Veronica , PA-C [address] [place] [phone] (Wo rk) documented as of this encounter Visit Diagnoses Not on filedocumented in this encounter Additional Health Concerns Assessment Noted Time PHQ-9 Depression Total Score: 2 12/18/2021 2:50 PM CDT documented as of this encounter Care Teams Maintenance Fitter Relationship Specialty Start Date End Date Marija Edgar, PCP - General Nurse Practitioner 04/30/20 AIRPLANE ELECTRICIAN SUPERVISOR WELDING EQUIPMENT REPAIRER [address] [place] [address] Ltia Oseguera Personal Advocate & 02/28/20 Liaison (PAL) Marija Edgar, Assigned PCP 06/08/20 AIRPLANE ELECTRICIAN SUPERVISOR WELDING EQUIPMENT REPAIRER [address] [place] [address] Mauri, Assigned Neuroscience 06/04/20 MD Keisha Provider [address] [place], [place] [address] Galo Burrell MD Assigned Heart and 10/05/20 04/02/22 [address] Vascular Provider [address] [place] [phone] Diana Desir, Pharmacist Pharmacist 04/17/21 [facility] [address] [place], [place] [address] Rain Galaviz Physician Otolaryngology Surgeon Dermatology 04/28/21 ROVERTO Paredes [address] [facility] [address] [place] [phone] Summer Lara MD Assigned OBGYN Provider 05/31/21 03/12/[address] [place], [place] [phone] Tavia Wyatt MD Dermatology 07/14/21 Johnny Medrano Assigned Musculoskeletal 08/30/21 03/17/22 MD sIh Provider [address] [place], [place] [address] Erica Farrell Nurse Practitioner Cardiovascular Disease 09/09/21 ARLENE Guidry SUPERVISOR WELDING EQUIPMENT REPAIRER [address] [facility] [address] [place], [place] [address] Tavia Wyatt, Assigned Surgical 11/29/21 MD Provider Diana Desir, Assigned MTM Pharmacist 01/02/22 03/26/22 [facility] [address] [place], [place] [address] documented as of this encounter
--- OUTSIDE RECORDS SUMMARY | 2022-04-28 01:07 | XMS_ITS | Encounter Summary ---
:2000 Author Organization [facility] Address [address] [place] [address] Care Team Providers Name Role Phone Lita Oseguera Unavailable Unavailable Marija Edgar APRN PROCEDURE MANAGER Primary Care Provider Marija Edgar APRN PROCEDURE MANAGER Unavailable Keisha Dotson MD Unavailable Galo Burrell MD Unavailable Diana Desir [facility] Unavailable Rain Galaviz PA-C Unavailable [phone] Summer Lara MD Unavailable Tavia Wyatt MD Unavailable Unavailable Johnny Murillo MD Unavailable [phone] Erica Farrell APRN PROCEDURE MANAGER Unavailable Tavia Wyatt MD Unavailable Unavailable Encounter Details Date Type Department Care Team Description 12/03/2021 Virtual Visit [facility] Mauri Convulsions, [address] Rom[address] Valdes MD unspecified convulsion Josh, [address] [facility] type (H) [place] [address] [phone] Social History Tobacco Use Types Packs/Day Years [...] week 09/22/2021 How often do you attend worship or denominational services? Never 09/22/2021 Do you belong to any clubs or organizations such as No 09/22/2021 worship groups, unions, fraternal or athletic groups, or [...] have Coronavirus/COVID-19? documented as of this encounter Progress Notes Keisha Dotson MD - 12/03/2021 11:00 AM CDT Kim is a 21 year old who is being evaluated via a billable telephone visit. What phone number would you like to be contacted at? [phone] How would you like to obtain your AVS? [facility] Epilepsy Care Progress Note Patient: Kim Johnson : 2000 Age: [age] year old Today's virtual visit: 12/03/2021 History of Present Illness: Kim is participating in this virtual visit for follow-up on her epilepsy. Her last appointment wasFebruary 2021. She has not had any seizures since last visit. She is taking levetiracetam 500 mg daily. Denies side effects. Social: Her baby girl is almost 1-year-old now. Current Outpatient Medications Medication Sig Dispense Refill ??? levETIRAcetam (KEPPRA) 500 MG tablet Take 1 tablet (500 mg) by mouth daily 90 tablet 3 ??? augmented betamethasone dipropionate (DIPROLENE-AF) 0.05 % external ointment Apply up to twice daily as needed for psoriasis on thicker areas of skin. 150 g 11 ??? benzonatate (TESSALON) 100 MG capsule Take 1 capsule (100 mg) by mouth 3 times daily as needed for cough 30 capsule 0 ??? fluocinonide (LIDEX) 0.05 % external solution Apply small amount to psoriasis on the scalp. 60 mL 11 ??? omeprazole (PRILOSEC) [address] capsule Take 1 capsule (40 mg) by mouth daily 90 capsule 3 ??? PARoxetine (PAXIL) 20 MG tablet Take 0.5 tablets (10 mg) by mouth every morning for 7 days, THEN1 tablet (20 mg) every morning. 30 tablet 1 ??? Vit-Fe Fumarate-FA ( MULTIVITAMIN W/IRON) 27-0.8 MG tablet Take 1 tablet by mouth daily 90 tablet 3 ??? tacrolimus (PROTOPIC) 0.1 % external ointment Apply thin layer to psoriasis on thinner skin up to twice daily as needed. 60 g 11 Perceived AED Side Effects: No Medication Notes: AED Medication Compliance: noncompliant much of the time Assessment and Plan: Epilepsy, NOS: Patient has had one definite seizure and 2 possible seizures when she woke up confused and/or tongue biting. She was always taking levetiracetam 500 mg daily. It has been ~4 years since her last event. In the previous visit, she wanted to come off Keppra. I advised her that she needs darrell very cautious with caring of her baby who was only 6 wks at the time, such as carrying her in stroller rather than in her lap and not bathing her alone, at least for the first few months of coming off LVT. She decided to continue her medication. Again we discussed this during this visit. Her EEG was normal. She has a family history of epilepsy in her father. I explained that even though her EEG was normal and it has been ~4 years since her last seizure, she would be still at risk of having seizures if she discontinue medication, although the riak might be rlow. She decided to continue levetiracetam. I advised her that 500 mg daily is a low dose and I recommended to increase it, however she was not inclined to do that. -Continue levetiracetam 500 mg daily. -Follow-up in 1 year. As described above, I talked with the patient for 25 minutes and during this time counseling and answering patient's questions was greater than 50% of the visit time. Keisha Dotson MD documented in this encounter Plan of Treatment Upcoming Encounters Date Type Specialty Care Team Description 04/28/2022 Office Visit Family Practice Anthony Doe PA-C [address] [place], [place] [phone] (Wo rk) 05/03/2022 Office Visit Dermatology Neil Kent M D [address] [place] [address] (Wo rk) 05/05/2022 Office Visit Optometry Yeny David, OD [address] [facility] [place] [phone] (Wo rk) 05/11/2022 Virtual Visit Pharm D Diana Desir , [facility] [address] [place], [place] [address] (Wo rk) 05/14/2022 Office Visit Cardiology Livan Sharif MD [address] [place], [place] [address] (Wo rk) 05/31/2022 Office Visit Family Practice Valery Veronica PA-C [address] [place], [place] [address] (Wo rk) documented as of this encounter Visit Diagnoses Diagnosis Convulsions, unspecified convulsion type (H) documented in this encounter Additional Health Concerns Assessment Noted Time PHQ-9 Depression Total Score: 2 04/02/2021 10:19 AM CD T documented as of this encounter Care Teams Engagement Engineer Relationship Specialty Start Date End Date Marija Edgar, PCP - General Nurse Practitioner 04/30/20 FIRE HAZARD INSPECTOR PROCEDURE MANAGER [address] [place], [place] [phone] Lita Oseguera Personal Advocate & 02/28/20 Liaison (PAL) Marija Edgar, Assigned PCP 06/08/20 FIRE HAZARD INSPECTOR PROCEDURE MANAGER [address] [place], [place] [phone] Mauri, Melody Neuroscience 06/04/20 MD Keisha Provider [address] [place], [place] [address] Galo Burrell MD Assigned Heart and 10/05/20 04/02/22 [address] Vascular Provider [address] [place], [place] [address] Diana Desir, Pharmacist Pharmacist 04/17/21 [facility] [address] [place], [place] [address] Rain Galaviz Physician Tilting Saw Operator Dermatology 04/28/21 ROVERTO Paredes [address] [facility] [place] [address] Summer Lara MD Assigned OBGYN Provider 05/31/[address] [place], [place] [address] Tavia Wyatt MD Dermatology 07/14/21 Johnny Medrano Assigned Musculoskeletal 08/30/21 9 MD Ish Provider [address] [place] [address] Erica Farrell Nurse Practitioner Cardiovascular Disease 09/09/21 ARLENE Guidry PROCEDURE MANAGER [address] [facility] [address] [place], [place] [address] Tavia Wyatt, Assigned Surgical 11/29/21 Provider documented as of this encounter
--- OUTSIDE RECORDS SUMMARY | 2022-04-28 01:07 | XMS_ITS | Encounter Summary ---
:2000 Author Organization [place] Address [address] [place] [address] Care Team Providers Name Role Phone Lita Oseguera Unavailable Unavailable Marija Edgar APRN BED SETTER Primary Care Provider Marija Edgar APRN BED SETTER Unavailable Keisha Dotson MD Unavailable Galo Burrell MD Unavailable Diana Desir [facility] Unavailable Rain Galaviz PA-C Unavailable [phone] Summer Lara MD Unavailable Tavia Wyatt MD Unavailable Unavailable Johnny Murillo MD Unavailable [phone] Erica Farrell VOLUNTEER FIRE FIGHTER BED SETTER Unavailable [phone] Tavia Wyatt MD Unavailable Unavailable Encounter Details Date Type Department Care Team Description 12/14/2021 Travel Social History Tobacco Use Types Packs/Day [...] How often do you attend islam or alevism services? Never 09/22/2021 Do you belong to [...] place to sleep or slept in a fci (including now)? Education Answer Date Recorded What is the highest level of school you have completed or 12 th grade 08/07/2020 the highest degree you have received? Sex Assigned at Date Recorded Female 03/02/2021 5:45 PM CDT documented as of this encounter Plan of Treatment Upcoming Encounters Date Type Specialty Care Team Description 04/28/2022 Office Visit Family Practice Anthony Doe, [place] [address] [place], [place] [phone] (Wo rk) 05/03/2022 Office Visit Dermatology Neil Kent M D [address] [place], [place] [address] (Wo rk) 05/05/2022 Office Visit Optometry Yeny David, OD [address] [facility] [place] [address] (Wo rk) 05/11/2022 Virtual Visit Pharm Diana Eckert , [facility] [address] [place] [address] (Wo rk) 05/14/2022 Office Visit Cardiology Livan Sharif MD [address] [place] [address] (Wo rk) 05/31/2022 Office Visit Family Practice Valery Veronica , PAUcheC 909 [place] [address] (Wo rk) documented as of this encounter Visit Diagnoses Not on filedocumented in this encounter Additional Health Concerns Assessment Noted Time PHQ-9 Depression Total Score: 2 04/02/2021 10:19 AM CD T documented as of this encounter Care Teams Printer Apprentice Relationship Specialty Start Date End Date Marija Edgar, PCP - General Nurse Practitioner 04/30/20 VOLUNTEER FIRE FIGHTER BED SETTER [address] [place] [address] Lita Oseguera Personal Advocate & 02/28/20 Liaison (PAL) Marija Edgar, Assigned PCP 06/08/20 VOLUNTEER FIRE FIGHTER BED SETTER [address] [place] [address] Mauri, Melody Neuroscience 06/04/20 MD Keisha Provider 909 [place] [address] Galo Burrell MD Assigned Heart and 10/05/20 04/02/22 [address] Vascular Provider [address] [place], [place] [address] Diana Desir, Pharmacist Pharmacist 04/17/21 [facility] [address] [place] [address] Rain Galaviz Physician Machine Maintenance Servicer Dermatology 04/28/21 ROVERTO Paredes [address] [facility] [place] [phone] Summer Lara MD Assigned OBGYN Provider 05/31/21 03/12/[address] [place] [address] Tavia Wyatt MD Dermatology 07/14/21 Johnny Medrano Assigned Musculoskeletal 08/30/21 03/17/22 MD Ish Provider [address] [place] [address] Erica Farrell Nurse Practitioner Cardiovascular Disease 09/09/21 ARLENE Guidry BED SETTER [address] [facility] [address] [place] [address] Tavia Wyatt, Assigned Surgical 11/29/21 Provider documented as of this encounter
--- OUTSIDE RECORDS SUMMARY | 2022-04-28 01:07 | XMS_ITS | Encounter Summary ---
:2000 Author Organization [facility] Address [address] [place] [address] Care Team Providers Name Role Phone Lita Oseguera Unavailable Unavailable Marija Edgar APRN ASSURANCE MANAGER Primary Care Provider [phone] Marija Edgar APRN ASSURANCE MANAGER Unavailable Keisha Dotson MD Unavailable Galo Burrell MD Unavailable Diana Desir [facility] Unavailable Rain Galaviz PA-C Unavailable [phone] Summer Lara MD Unavailable Tavia Wyatt MD Unavailable Unavailable Johnny Murillo MD Unavailable [phone] Erica Farrell APRN ASSURANCE MANAGER Unavailable [phone] Tavia Wyatt MD Unavailable Unavailable Reason for Visit Reason Comments Medication Therapy Management Encounter Details Date Type Department Care Team Description 12/14/2021 Virtual Visit [facility] Diana Desir, Anxi ety (Primary Dx); Clinic [facility] Moderate major depression (H) [address] [address] [phone] (Wo rk) Social History Tobacco Use Types [...] week 09/22/2021 How often do you attend catholic or judaism services? Never 09/22/2021 Do you belong to any clubs or organizations such as No 09/22/2021 catholic groups, unions, fraternal or athletic groups, or [...] PM CDT documented as of this encounter Patient Instructions Patient InstructionsWDiana nuñez, [facility] - 12/14/2021 1:56 PM CDT Recommendations from today's MTM visit: 1. Increase paroxetine to 30 mg daily at bedtime. It was great speaking with you today. I value your experience and would be very thankful for your time in providing feedback in our clinic survey. In the next few days, you may receive an email or textmessage from [facility] [employer] with a link to a survey related to your ???clinical pharmacist. To schedule another MTM appointment, please call the clinic directly or you may call the MTM scheduling line at [phone] or toll-free at . My Clinical Pharmacist's contact information: Please feel free to contact me with any questions or concerns you have. Diana Desir, PharmD Medication Therapy Management Provider, [facility] documented in this encounter Progress Notes Diana Desir RPH - 12/14/2021 1:30 PM CDT Medication Therapy Management (MTM) Encounter ASSESSMENT: Medication Adherence/Access: No issues identified Anxiety/Depression: Will continue to increase paroxetine dose for further assistance with anxiety/depression and OCD like tendencies. Pharmacokinetic Gene Variants Gene Phenotype Notable Medications Impacted CYP2C9 Intermediate Metabolizer fluoxetine MTHFR Reduced Conversion Pharmacodynamic Gene Variants Gene Phenotype Notable Medications Impacted SLC6A4 Intermediate Response Sertraline and other SSRIs ADRA2A Moderately Reduced Response PLAN: 1. Increase paroxetine to 30 mg daily at bedtime. Follow-up: Return in about 1 month (around 01/13/2022) for Medication Therapy Management Pharmacist. SUBJECTIVE/OBJECTIVE: Kim Johnson is a 21 year old female called for a follow-up visit. Today's visit is a follow-up MTM visit from 11/30. Reason for visit: paroxetine follow-up Tobacco: She reports that she quit smoking about 2 years ago. Her smoking use included other. She smoked 1.00 pack per day. She has never used smokeless tobacco. Alcohol: not currently using Medication Adherence/Access: no issues reported Anxiety/Depression: Current medications include: paroxetine 20 mg daily at bedtime and lorazepam 0.5mg as needed (minimizing use, twice weekly still). Doing good since off sertraline. Still getting very anxious but does feel the paroxetine is working and helping. Still feeling depressed and anxious depending on situation or seeing daughter's dad. Overthinks a lot, worries a lot. Still ,will be done in a couple months. no side effects so far from paroxetine except more dreams lately. Lorazepam really helps for panic. Following therapist and did see psychiatrist. Past med trial: Buspirone (made her feel very weird, suicidal thoughts she thinks) Sertraline (obessive about certain things and ineffective after being on for so long on 200 mg/day) PHQ 09/29/2020 03/02/2021 04/02/2021 PHQ-9 Total Score 6 2 2 Q9: Thoughts of better off /self-harm past 2 weeks Not at all Not at all Not at all KALYN-7 SCORE 09/29/2020 03/02/2021 04/02/2021 Total Score 12 (moderate anxiety) 4 (minimal anxiety) 4 (minimal anxiety) Total Score 14 4 4 Today's Vitals: none I spent 10 minutes with this patient today. All changes were made via collaborative practice agreement with Marija Edgar APRN CNP. A copy of the visit note was provided to the patient's provider(s). The patient was sent via [employer] a summary of these recommendations. Diana Desir, PharmD Medication Therapy Management Provider, [facility] Pager: [phone] Telemedicine Visit Details Type of service: Telephone visit Start Time: 1:35 PM End Time: 1:45 PM Originating Location (patient location): Home Distant Location (provider location): [facility] Medication Therapy Recommendations Anxiety Current Medication: PARoxetine (PAXIL) 20 MG tablet (Discontinued) Rationale: Dose too low - Dosage too low - Effectiveness Recommendation: Increase Dose - PARoxetine 30 MG tablet Status: Accepted per CPA documented in this encounter Plan of Treatment Upcoming Encounters Date Type Specialty Care Team Description 04/28/2022 Office Visit Family Practice Anthony Doe PA-C [address] [place], [place] [phone] (Jefferson carlson) 05/03/2022 Office Visit Dermatology Neil Kent M D [address] [place] [phone] (Wo rk) 05/05/2022 Office Visit Optometry Yeny David, OD [address] [place] [phone] (Wo rk) 05/11/2022 Virtual Visit Pharm D Diana Desir , [facility] [address] [place], [place] [address] (Wo rk) 05/14/2022 Office Visit Cardiology Livan Sharif MD [address], [address] [place], [place] [address] (Wo rk) 05/31/2022 Office Visit Family Practice Valery Veronica , PAUcheC [address] [place], [place] [address] (Wo rk) documented as of this encounter Visit Diagnoses Diagnosis Anxiety - Primary Anxiety state, unspecified Moderate major depression (H) Major depressive disorder, single episod e, moderate documented in this encounter Additional Health Concerns Assessment Noted Time PHQ-9 Depression Total Score: 2 04/02/2021 10:19 AM CD T documented as of this encounter Care Teams City Solicitor Relationship Specialty Start Date End Date Marija Edgar PCP - General Nurse Practitioner 04/30/20 SINTER PRESS OPERATOR ASSURANCE MANAGER [address] [place] [address] Lita Oseguera Personal Advocate & 02/28/20 Liaison (PAL) Marija Edgar, Assigned PCP 06/08/20 SINTER PRESS OPERATOR ASSURANCE MANAGER [address] [place], [place] [phone] Mauri, Assigned Neuroscience 06/04/20 MD Keisha Provider [address] [place], [place] [address] Galo Burrell MD Assigned Heart and 10/05/20 04/02/[address] Vascular Provider [address] [place] [phone] Diana Desir, Pharmacist Pharmacist 04/17/21 [facility] [address] [place] [address] Rain Galaviz Physician Net Architect Dermatology 04/28/21 ROVERTO Paredes [address] [place], [place] [phone] Summer Lara MD Assigned OBGYN Provider 05/31/21 03/12/[address] [place], [place] [address] Tavia Wyatt MD Dermatology 07/14/21 Johnny Medrano Assigned Musculoskeletal 08/30/21 03/17/22 MD Ish Provider [address] [place], [place] [address] Erica Farrell Nurse Practitioner Cardiovascular Disease 09/09/21 ARLENE Guidry ASSURANCE MANAGER [address] [place] [address] Tavia Wyatt, Assigned Surgical 11/29/21 Provider documented as of this encounter
--- OUTSIDE RECORDS SUMMARY | 2022-04-28 01:07 | XMS_ITS | Encounter Summary ---
:2000 Author Organization [facility] Address [address] [place] [address] Care Team Providers Name Role Phone Lita Oseguera Unavailable Unavailable Marija Edgar APRN CORRECTIONAL COOK Primary Care Provider [phone] Marija Edgar APRN CORRECTIONAL COOK Unavailable Keisha Dotson MD Unavailable Galo Burrell MD Unavailable Diana Desir [facility] Unavailable Rain Galaviz PA-C Unavailable [phone] Summer Lara MD Unavailable Tavia Wyatt MD Unavailable Unavailable Johnny Murillo MD Unavailable [phone] Erica Farrell APRN CORRECTIONAL COOK Unavailable [phone] Tavia Wyatt MD Unavailable Unavailable Reason for Referral Consultation (Routine: Next available opening) - Referral NOT Required Specialty Diagnoses / Procedures Referred By Contact Refer red To Contact Otolaryngology Diagnoses Pharyngitis, unspecified etiology Lauren Claudio PA-C [address] [place], [place] [address] Referral ID Status Reason Start Date Expiration Date Visits V isits Requested Authorized [id number] Referral NOT 12/18/2021 12/18/2022 1 1 Required Reason for Visit Reason Comments Pharyngitis Derm Problem Encounter Details Date Type Department Care Team Description 12/18/2021 Office Visit [facility] González Phajoseeng itis, unspecified etiology (Primary Dx); Clinic [facility] ROVERTO Stov[place] [id number] [facility] [id number] [place] [phone] [place], [place] [phone] Social History Tobacco Use Types Packs/Day Years [...] How often do you attend gnosticism or baptism services? Never 09/22/2021 Do you belong to [...] Sign Reading Time Taken Comments Blood Pressure 116/71 12/18/2021 3:00 PM CDT Pulse 81 12/18/2021 3:00 PM CDT Temperature 36.9 ??C (98.5 ??F) 12/18/2021 3:00 PM CDT Respiratory Rate 18 12/18/2021 3:00 PM CDT Oxygen Saturation - - Inhaled Oxygen Concentration - - Weight 64.1 kg (141 lb 6.4 oz) 12/18/2021 3:00 PM CDT Height 167.6 cm (5' 6) 12/18/2021 3:00 PM CDT Body Mass Index 22.82 12/18/2021 3:00 PM CDT documented in this encounter Progress Notes Lauren Claudio PA-C - 12/18/2021 3:30 PM CDT Assessment & Plan Pharyngitis, unspecified etiology Testing for strep is negative as is mono. Patient has had numerous episodes of pharyngitis in the past few months. She would like to discuss with ENT to determine if anything would be done about the tonsils. Referral placed. - Streptococcus A Rapid Screen w/Reflex to PCR - Clinic Collect - Adult ENT Supply Person Referral; Future - Mononucleosis screen; Future - Symptomatic; Yes; 12/16/2021 COVID-19 Virus (Coronavirus) by PCR Nose; Future - Group A Streptococcus PCR Throat Swab - Mononucleosis screen - Symptomatic; Yes; 12/16/2021 COVID-19 Virus (Coronavirus) by PCR Nose Rash Itching in nature around the area she had a tattoo placed earlier this week. Perhaps a reaction to saran wrap or kerlex that she had quite tight around the area earlier in the week. Does not appear to be cellulitis. Continue to monitor. Review of the result(s) of each unique test - strep, mono Ordering of each unique test Return if symptoms worsen or fail to improve. ROVERTO Ahuja [facility] Dario Alvarez is a 21 year old who presents for the following health issues Pharyngitis History of Present Illness Reason for visit: Tonsils Symptom onset: 1-3 days ago Symptoms include: Myalgias, sore throat, low grade fever (symptoms have been coming and going) Symptom intensity: Moderate Symptom progression: Staying the same Had these symptoms before: Yes Has tried/received treatment for these symptoms: No What makes it worse: No What makes it better: Tylenol She eats 2-3 servings of fruits and vegetables daily.She consumes 0 sweetened beverage(s) daily.She exercises with enough effort to increase her heart rate 10 to 19 minutes per day. She exercises with enough effort to increase her heart rate 3 or less days per week. She is taking medications regularly. Today's PHQ-9 PHQ-9 Total Score: 2 PHQ-9 Q9 Thoughts of better off /self-harm past 2 weeks : Not at all How difficult have these problems made it for you to do your work, take care of things at home, or get along with other people: Somewhat difficult Today's KALYN-7 Score: 5 Has not had COVID testing recently. She has had COVID previously (about 4 months ago). Would like rash on left leg looked at where she just got a new tattoo, look like it could be infected. Review of Systems HENT: Positive for sore throat. Objective BP 116/71 (BP Location: Right arm, Patient Position: Sitting, Cuff Size: Adult Regular) Pulse 81 Temp 98.5 ??F (36.9 ??C) (Oral) Resp 18 Ht 1.676 m (5' 6) Wt 64.1 kg (141 lb 6.4 oz) PF 97 L/min BMI 22.82 kg/m?? Body mass index is 22.82 kg/m??. Physical Exam GENERAL: No acute distress HEENT: Normocephalic, PERRL, Canals patent, bilateral TM's non-erythematous and non-bulging. Turbinates erythematous and mildly edematous in appearance bilaterally. Posterior oropharynx mildly erythematous but without exudate. Tonsils 2+ NECK: No cervical or supraclavicular lymphadenopathy. CARDIAC: Regular rate and rhythm. No murmurs. PULMONARY: Lungs are clear to auscultation bilaterally. No wheezes, rhonchi or crackles. SKIN: Papules around the lower thigh and knee area (anterior and posterior), new tattoo on the anterior lower thigh. Mild erythema in some areas no bright red erythema and not hot to touch. NEURO: Alert and non-focal Results for orders placed or performed in visit on 12/18/21 (from the past 24 hour(s)) Streptococcus A Rapid Screen w/Reflex to PCR - Clinic Collect Specimen: Throat; Swab Result Value Ref Range Group A Strep antigen Negative Negative Mononucleosis screen Result Value Ref Range Mononucleosis Screen Negative Negative documented in this encounter Plan of Treatment Upcoming Encounters Date Type Specialty Care Team Description 04/28/2022 Office Visit [facility] Anthony Doe PA-C [address] [place], [place] [phone] (Wo rk) 05/03/2022 Office Visit Dermatology Neil Kent M D [address] [place], [place] [phone] (Wo rk) 05/05/2022 Office Visit Optometry Yeny David, OD [address] [place] [phone] (Wo rk) 05/11/2022 Virtual Visit Pharm D Diana Desir , [facility] [address] [place], [place] [phone] (Wo rk) 05/14/2022 Office Visit Cardiology Livan Sharif MD [address] [facility] [address] [place], [place] [address] (Wo rk) 05/31/2022 Office Visit Family Practice Valery Veronica PA-C [address] [place] [address] (Wo rk) Scheduled Referrals Name Type Priority Associated Diagnoses Order S chedule Adult ENT Supply Person Referral Routine: Next Pharyngitis, Expecte d: Referral available opening unspecified etiology (Approximate), Expires: 12/18/2022 documented as of this encounter Procedures Procedure Name Priority Date/Time Associated Comments Diagnosis MONONUCLEOSIS SCREEN Routine 12/18/2021 3:49 PM Pharyngitis, R esults for this CDT unspecified procedure are i n etiology the results section. COVID-19 VIRUS Routine 12/18/2021 3:45 PM Pharyngitis, Results for this (CORONAVIRUS) BY PCR CDT unspecified procedu re are in etiology the results section. STREPTOCOCCUS A RAPID Routine 12/18/2021 3:10 PM Pharyngitis, Results for this SCREEN W REFELX TO PCR CDT unspecified proce dure are in etiology the results section. GROUP A STREPTOCOCCUS Routine 12/18/2021 3:10 PM Pharyngitis, Results for this PCR THROAT SWAB CDT unspecified procedure ar e in etiology the results section. documented in this encounter Results Mononucleosis screen (12/18/2021 3:49 PM CDT) [facility] Method Time Signature Mononucleosis Negative Negative REINA 12/18/2021 [facility] Screen 4:00 PM CDT Specimen Anatomical Collection Method / Collection Time Recei chelsie Time (Source) Location / Volume Laterality Blood BLOOD SPECIMEN / Venipuncture / 12/18/2021 3:49 2021 3:49 Unknown Unknown PM CDT PM CDT Lauren Claudio PA-C LAB - BLOOD ORDERABLES Performing Organization Address City/State/ZIP Code Phon [place] [address] [phone] [place] [facility] [address] [facility] (no room number, 1st floor of clinic) [facility] [place], [place] [phone] [facility] [phone], [facility] Lab [address] [facility] Lab (no room number, 1st floor of clinic) Symptomatic; Yes; 12/16/2021 COVID-19 Virus (Coronavirus) by PCR Nose (12/18/2021 3:45 PM CDT) [facility] Method Time Signature SARS CoV2 PCR Negative Negative, 12/19/2021 [facility] Testing sent to 11:34 AM LABORATORY reference lab. CDT Results will be returned via unsolicited result Comment: NEGATIVE: SARS-CoV-2 (COVID-19) RNA not detected, presumed negative. Specimen Anatomical Collection Method Collection Time Receive d Time (Source) Location / / Volume Laterality Swab NASAL STRUCTURE / Non-blood 12/18/2021 3:45 PM 12/09 3:45 Unknown Collection / CDT PM CDT Unknown Narrative [facility] - 12/19/2021 11:34 AM CDT Testing was performed using the candy SARS-CoV-2 assay on the candy [employer]0 System. This test should be ordered for the detection of SARS-CoV-2 in individuals who meet SARS- CoV-2 clinical and/or epidemiological criteria. Test performan ce is unknown in asymptomatic patients. This test is for in vitro diag nostic use under the FDA EUA for laboratories certified under CLIA to perform high and/or moderate complexity testing. This test has not be en FDA cleared or approved. A negative result does not rule out the pr esence of PCR inhibitors in the specimen or target RNA in concentrat ion below the limit of detection for the assay. The possibility of a false negative should be considered if the patient's recent ex posure or clinical presentation suggests COVID-19. This hang t was validated by the [facility] Infectious Diseases Diag nostic Laboratory. This laboratory is certified under the [facility] al Laboratory Improvement Amendments of 1988 (CLIA-88) as qualifie d to perform high and/or moderate complexity laboratory testing. Lauren Claudio PA-C LAB - MICRO GENERAL ORDERABL ES Performing Organization Address City/State/ZIP Code Phon e Number [facility]ORATORY [facility] [place] [address] Diag. Lab [address] [facility], [address] Group A Streptococcus PCR Throat Swab (12/18/2021 3:10 PM CDT) Patholo gist Method Time Signature Group A strep Not Detected Not Detected 12/18/2021 [facility] by PCR 8:07 PM CDT LABORATORY Specimen Anatomical Collection Method Collection Time Receive d Time (Source) Location / / Volume Laterality Swab STRUCTURE OF Non-blood 12/18/2021 3:10 PM 2 3:35 ANTERIOR PORTION Collection / CDT PM CDT OF NECK / Unknown Unknown Narrative [facility] - 12/18/2021 8:07 PM C DT The Xpert Xpress Strep A test, performed on the [employer]?? Instrument Systems, is a rapid, qualitative in vitro diagnostic t est for the detection of Streptococcus pyogenes (Group A ? - hemolytic Streptococcus, Strep A) in thr oat swab specimens from patients with signs and symptoms of pharyngitis. The Xpert X press Strep A test can be used as an aid in the diagnosis of Group A Streptococcal p haryngitis. The assay is not intended to monitor treatment for Group A Streptococ cus infections. The Xpert Xpress Strep A test utilizes an automated real-time polymera se chain reaction (PCR) to detect Streptococcus pyogenes DNA. Lauren DOWC LAB - MICRO GENERAL ORDERABL ES Performing Organization Address City/State/ZIP Code Phon e Number [facility]ORATORY [facility] [place] [phone] Diag. Lab [address] [facility], [address] Streptococcus A Rapid Screen w/Reflex to PCR - Clinic Collect (12/18/2021 3:10 PM CDT) Analysis Performed At Patho logist Time Signature Group A Strep Negative Negative 12/18/2021 [facility] antigen 3:35 PM CDT Specimen Anatomical Collection Method Collection Time Receive d Time (Source) Location / / Volume Laterality Swab STRUCTURE OF Non-blood 12/18/2021 3:10 PM 2 3:15 ANTERIOR PORTION Collection / CDT PM CDT OF NECK / Unknown Unknown Lauren ALCALA-C LAB - MICRO GENERAL ORDERABL ES Performing Organization Address City/State/ZIP Code Phon e Number CR LABORATORY [facility] [place] [address] [facility] [address] [facility] Lab (no room number, 1st floor of clinic) LABORATORY [place], [place] [phone] [facility] [phone] Lab [address] [facility] Lab (no room number, 1st floor of clinic) documented in this encounter Visit Diagnoses Diagnosis Pharyngitis, unspecified etiology - Prim richard Rash Rash and other nonspecific skin eruption documented in this encounter Additional Health Concerns Infection Onset Date Last Indicated Resolved Time Rule Out COVID-19 12/18/2021 12/18/2021 12/19/2021 11: 34 AM CDT Assessment Noted Time PHQ-9 Depression Total Score: 2 12/18/2021 2:50 PM CDT documented as of this encounter Care Teams Shoe Treer Relationship Specialty Start Date End Date Marija Edgar, PCP - General Nurse Practitioner 04/30/20 GARDEN LABOURER CORRECTIONAL COOK [address] [place] [address] Lita Oseguera Personal Advocate & 02/28/20 Liaison (PAL) Marija Edgar, Assigned PCP 06/08/20 [employer]RE[employer]AL COOK [address] [place], [place] [phone] Mauri, Melody Neuroscience 06/04/20 MD Keisha Provider [address] [place], [place] [address] Galo Burrell MD Assigned Heart and 10/05/20 04/02/22 [address] Vascular Provider [address] [place], [place] [phone] Diana Desir, Pharmacist Pharmacist 04/17/21 [facility] [address] [place], [place] [phone] Rain Galaviz Physician Import Export Manager Dermatology 04/28/21 ROVERTO Paredes [address] [place] [address] [address] [facility] [place], [place] [phone] Summer Lara MD Assigned OBGYN Provider 05/31/21 03/12/[address] [place], [place] [address] Tavia Wyatt MD Dermatology 07/14/21 Johnny Medrano Assigned Musculoskeletal 08/30/21 03/17/22 MD Ish Provider [address] [place], [place] [address] Erica Farrell Nurse Practitioner Cardiovascular Disease 09/09/21 ARLENE Guidry CORRECTIONAL COOK [address] [facility] [address] [place] [address] Tavia Wyatt, Assigned Surgical 11/29/21 Provider documented as of this encounter
--- OUTSIDE RECORDS SUMMARY | 2022-04-28 01:07 | XMS_ITS | Encounter Summary ---
:2000 Author Organization [place] Address [address] [place] [address]. [place] [address] Care Team Providers Name Role Phone Lita Oseguera Unavailable Unavailable Marija Edgar APRN TRIAL MANAGEMENT ASSOCIATE Primary Care Provider Marija Edgar APRN TRIAL MANAGEMENT ASSOCIATE Unavailable Keisha Dotson MD Unavailable Galo Burrell MD Unavailable Diana Desir [facility] Unavailable Rain Galaviz PA-C Unavailable [phone] Summer Lara MD Unavailable Tavia Wyatt MD Unavailable Unavailable Johnny Murillo MD Unavailable [phone] Erica Farrell SENIOR RESEARCH FELLOW TRIAL MANAGEMENT ASSOCIATE Unavailable Tavia Wyatt MD Unavailable Unavailable Reason for Visit Reason Comments Urgent Care Right Ear pain x 2 days. Encounter Details Date Type Department Care Team Description 12/24/2021 Office Visit [facility] Aniya Paniagua e suppurative Urgent Care Jude Yoder, otitis media of right [address] [address] MD ear without [place], [place] [address] [place] [id number] [place], [place] tympanic membrane, [address] recurrence not [phone] specified (Prim richard Dx) (Work) Social History Tobacco Use Types Packs/Day Years [...] week 09/22/2021 How often do you attend baptism or amish services? Never 09/22/2021 Do you belong to any clubs or organizations such as No 09/22/2021 baptism groups, unions, fraternal or athletic groups, or [...] place to sleep or slept in a jail (including now)? Education Answer Date Recorded What [...] Sign Reading Time Taken Comments Blood Pressure 102/60 12/24/2021 10:08 AM CDT Pulse 76 12/24/2021 10:08 AM CDT Temperature 37.2 ??C (98.9 ??F) 12/24/2021 10:08 AM CDT Respiratory Rate - - Oxygen Saturation 98% 12/24/2021 10:08 AM CDT Inhaled Oxygen Concentration - - Weight 77.5 kg (170 lb 14.4 oz) 12/24/2021 10:08 AM CDT Height - - Body Mass Index 27.58 12/18/2021 3:00 PM CDT documented in this encounter Progress Notes Aniya Paniagua MD - 12/24/2021 10:05 AM CDT Assessment & Plan Acute suppurative otitis media of right ear without spontaneous rupture of tympanic membrane, recurrence not specified - amoxicillin-clavulanate (AUGMENTIN) 875-125 MG tablet; Take 1 tablet by mouth 2 times daily for 10days Treat with Augmentin. Tylenol/ibuprofen prn comfort. Close Follow-up if no change or new or worsening sx prn. Aniya Paniagua MD [facility] Dario Alvarez is a 21 year old, presenting for the following health issues: Urgent Care (Right Ear pain x 2 days. ) HPI Seen in for URI sx one week ago-- COVID and strep were negative. Now with worsening RIGHT ear pain. No fever or chills. Here with toddler daughter with similar sx. Review of Systems Constitutional, HEENT, cardiovascular, pulmonary, GI, , musculoskeletal, neuro, skin, endocrine and psych systems are negative, except as otherwise noted. Objective BP 102/60 Pulse 76 Temp 98.9 ??F (37.2 ??C) (Tympanic) Wt 77.5 kg (170 lb 14.4 oz) LMP (LMP Unknown) SpO2 98% No BMI 27.58 kg/m?? Body mass index is 27.58 kg/m??. Physical Exam GENERAL: healthy, alert and no distress EYES: Eyes grossly normal to inspection, PERRL and conjunctivae and sclerae normal HENT: normal cephalic/atraumatic, right ear: erythematous and bulging membrane, left ear: normal: noeffusions, no erythema, normal landmarks, nasal mucosa edematous , oropharynx clear and oral mucous membranes moist NECK: no adenopathy, no asymmetry, masses, or scars and thyroid normal to palpation MS: no gross musculoskeletal defects noted, no edema PSYCH: mentation appears normal, affect normal/bright . .. documented in this encounter Plan of Treatment Upcoming Encounters Date Type Specialty Care Team Description 04/28/2022 Office Visit Family Practice Anthony Doe PAUcheC [address] [place], [place] [id number] (Wo rk) 05/03/2022 Office Visit Dermatology Neil Kent M D [address] [place] [address] [id number] (Wo rk) 05/05/2022 Office Visit Optometry Yeny David, OD [address] [facility] [address] [place], [place] [phone] (Wo rk) 05/11/2022 Virtual Visit Pharm D Diana Desir , [facility] [address] [place], [place] [address] (Wo rk) 05/14/2022 Office Visit Cardiology Livan Sharif MD [address] [facility] [address] [place], [place] [address] (Wo rk) 05/31/2022 Office Visit Family [facility] Valery Veronica PAUcheC [address] [place], [place] [address] (Wo rk) documented as of this encounter Visit Diagnoses Diagnosis Acute suppurative otitis media of right ear without spontaneous rupture of tympanic membrane, recurrence not specified - Peyton tidwell documented in this encounter Additional Health Concerns Assessment Noted Time PHQ-9 Depression Total Score: 2 12/18/2021 2:50 PM CDT documented as of this encounter Care Teams Twine Winder Relationship Specialty Start Date End Date Marija Edgar, PCP - General Nurse Practitioner 04/30/20 SENIOR RESEARCH FELLOW TRIAL MANAGEMENT ASSOCIATE [address] [place] [address] Lita Oseguera Personal Advocate & 02/28/20 Liaison (PAL) Marija Edgar, Assigned PCP 06/08/20 SENIOR RESEARCH FELLOW TRIAL MANAGEMENT ASSOCIATE [address] [place] [address] Mauri, Assigned Neuroscience 06/04/20 MD Keisha Provider [address] [place], [place] [address] Galo Burrell MD Assigned Heart and 10/05/20 04/02/22 [address] [facility] Vascular Provider [address] [place], [place] [address] Diana Desir, Pharmacist Pharmacist 04/17/21 [facility] [address] [place], [place] [address] Rain Galaviz Physician Civil Transportation Engineer Dermatology 04/28/21 ROVERTO Paredes [address] [place] [address] [address] [place] [place], [place] [phone] Summer Lara MD Assigned OBGYN Provider 05/31/21 03/12/[address] [place], [place] [id number] Tavia Wyatt MD Dermatology 07/14/21 Johnny Medrano Assigned Musculoskeletal 08/30/21 03/17/22 MD Ish Provider [address] [place], [place] [phone] Erica Farrell Nurse Practitioner Cardiovascular Disease 09/09/21 ARLENE Guidry TRIAL MANAGEMENT ASSOCIATE [address] [place] [address] Tavia Wyatt, Assigned Surgical 11/29/21 MD Provider documented as of this encounter
--- OUTSIDE RECORDS SUMMARY | 2022-04-28 01:07 | XMS_ITS | Encounter Summary ---
:2000 Author Organization [facility] Address [address] [place] [address] Care Team Providers Name Role Phone Lita Oseguera Unavailable Unavailable Marija Edgar APRN LOGGING RAFTER LABORER Primary Care Provider [phone] Marija Edgar APRN LOGGING RAFTER LABORER Unavailable Keisha Dotson MD Unavailable Galo Burrell MD Unavailable Diana Desir [facility] Unavailable Rain Galaviz PA-C Unavailable [phone] Summer Lara MD Unavailable Tavia Wyatt MD Unavailable Unavailable Johnny Murillo MD Unavailable [phone] Erica Farrell POWER BARKER LOGGING RAFTER LABORER Unavailable [phone] Tavia Wyatt MD Unavailable Unavailable Encounter Details Date Type Department Care Team Description 12/24/2021 Travel Social History Tobacco Use Types Packs/Day [...] often do you attend jehovah's witness or scientology services? Never 09/22/2021 Do you belong to [...] Office Visit Family Practice Anthony Doe PA-C [address] [place] [address] (Wo rk) 05/03/2022 Office Visit Dermatology Neil Kent M D [address] [place], [place] [address] (Wo rk) 05/05/2022 Office Visit Optometry Yeny David, OD [address] [facility] [place] [address] (Wo rk) 05/11/2022 Virtual Visit Pharm D Diana Desir , [facility] [address] [place] [address] (Wo rk) 05/14/2022 Office Visit Cardiology Livan Sharif MD [address], [address] [place] [address] (Wo rk) 05/31/2022 Office Visit Family Practice Valery Veronica , PA-C [address] [place], [place] [address] (Wo rk) documented as of this encounter Visit Diagnoses Not on filedocumented in this encounter Additional Health Concerns Assessment Noted Time PHQ-9 Depression Total Score: 2 12/18/2021 2:50 PM CDT documented as of this encounter Care Teams Medical Coding Technician Relationship Specialty Start Date End Date Marija Edgar, PCP - General Nurse Practitioner 04/30/20 POWER BARKER LOGGING RAFTER LABORER [address] [place] [address] Lita Oseguera Personal Advocate & 02/28/20 Liaison (PAL) Marija Edgar, Assigned PCP 06/08/20 POWER BARKER LOGGING RAFTER LABORER [address] [place] [address] Mauri, Melody Neuroscience 06/04/20 MD Keisha Provider [address] [place], [place] [address] Galo Burrell MD Assigned Heart and 10/05/20 04/02/22 [address] Vascular Provider [address] [place], [place] [address] Desir, Diana T, Pharmacist Pharmacist 04/17/21 [facility] [address] [place] [address] Rain Galaviz Physician Weaving Machine Operator Dermatology 04/28/21 ROVERTO Paredes [address] [facility] [place] [address] Summer Lara MD Assigned OBGYN Provider 05/31/21 03/12/[address] [place], [place] [address] Tavia Wyatt MD Dermatology 07/14/21 Johnny Medrano Assigned Musculoskeletal 08/30/21 03/17/22 MD Ish Provider [address] [place], [place] [phone] Erica Farrell Nurse Practitioner Cardiovascular Disease 09/09/21 ARLENE Guidry LOGGING RAFTER LABORER [address] [facility] [address] [place], [place] [address] Tavia Wyatt, Assigned Surgical 11/29/21 Provider documented as of this encounter
[2022-04-28 01:08] LABS: Creatinine* 0.6 mg/dL (0.5-1.5); Est. Creatinine Clearance* 137.68; Estimated Glomerular Filt Rate 130 ml/min
--- OUTSIDE RECORDS SUMMARY | 2022-04-28 01:08 | XMS_ITS | Encounter Summary ---
:2000 Author Organization [place] Address [address] [place] [address] Care Team Providers Name Role Phone Lita Oseguera Unavailable Unavailable Marija Edgar APRN CAPTAIN CANNERY TENDER Primary Care Provider [phone] Marija Edgar APRN CAPTAIN CANNERY TENDER Unavailable Mynor Broussard MD Unavailable Keisha Dotson MD Unavailable Galo Burrell MD Unavailable Diana Desir [facility] Unavailable Rain Galaviz PA-C Unavailable [phone] Summer Lara MD Unavailable Tavia Wyatt MD Unavailable Unavailable Johnny Murillo MD Unavailable [phone] Erica Farrell APRN CAPTAIN CANNERY TENDER Unavailable [phone] Encounter Details Date Type Department Care Team Description 10/02/2021 Travel Social History Tobacco Use Types Packs/Day [...] week 09/22/2021 How often do you attend evangelical or jewish services? Never 09/22/2021 Do you belong to any clubs or organizations such as No 09/22/2021 evangelical groups, unions, fraternal or athletic groups, or [...] for the very basics like Not jessica andrey hard 09/22/2021 food, housing, medical care, [...] Exposure Response Date Recorded In the last month, have you been in contact with No / Unsure 10/02/2021 1:10 PM CDT someone who was confirmed or suspected to have Coronavirus / COVID-19? documented as of this encounter Plan of Treatment Upcoming Encounters Date Type Specialty Care Team Description 04/28/2022 Office Visit Family Practice Anthony Doe PA-C [address] [place], [place] [phone] (Wo rk) 05/03/2022 Office Visit Dermatology Neil Kent M D [address] [place] [address] (Wo rk) 05/05/2022 Office Visit Optometry Yeny David OD [address] [facility] [place] [address] (Wo rk) 05/11/2022 Virtual Visit Pharm D Diana Desir , [facility] [address] [place] [address] (Wo rk) 05/14/2022 Office Visit Cardiology Livan Sharif MD [address], [address] [place] [address] (Wo rk) 05/31/2022 Office Visit Family Practice Valery Veronica , PAUcheC [address] [place], [place] [address] (Wo rk) documented as of this encounter Visit Diagnoses Not on filedocumented in this encounter Additional Health Concerns Assessment Noted Time PHQ-9 Depression Total Score: 2 04/02/2021 10:19 AM CD T documented as of this encounter Care Teams Sales Management Intern Relationship Specialty Start Date End Date Marija Edgar, PCP - General Nurse Practitioner 04/30/20 CASE SUPERVISOR CAPTAIN CANNERY TENDER [address] [place] [address] Lita Oseguera Personal Advocate & 02/28/20 Liaison (PAL) Marija Edgar, Assigned PCP 06/08/20 CASE SUPERVISOR CAPTAIN CANNERY TENDER [address] [place] [address] Mynor Broussard MD Assigned Surgical 06/01/20 11/28/21 [address] Provider [address] [place], [place] [address] Mauri, Melody Neuroscience 06/04/20 MD Keisha Provider [address] [place], [place] [address] Galo Burrell MD Assigned Heart and 10/05/20 04/02/[address] Vascular Provider [address] [place] [address] Diana Desir, Pharmacist Pharmacist 04/17/21 [facility] [address] [place], [place] [address] Rain Galaviz Physician Diplomatic Interpreter/Translator Dermatology 04/28/21 ROVERTO Paredes [address] [facility] [address] [place] [phone] Summer Lara MD Assigned OBGYN Provider 05/31/21 03/12/[address] [place], [place] [address] Tavia Wyatt MD Dermatology 07/14/21 Johnny Medrano Assigned Musculoskeletal 08/30/21 03/17/22 MD Ish Provider [address] [place], [place] [phone] Erica Farrell Nurse Practitioner Cardiovascular Disease 09/09/21 ARLENE Guidry CAPTAIN CANNERY TENDER [address] [place] [id number] documented as of this encounter
--- OUTSIDE RECORDS SUMMARY | 2022-04-28 01:08 | XMS_ITS | Encounter Summary ---
:2000 Author Organization [facility] Address [address] [place] [address]. [place] [address] Care Team Providers Name Role Phone Lita Oseguera Unavailable Unavailable Marija Edgar APRN CREATIVE ARTS THERAPIST Primary Care Provider Marija Edgar APRN CREATIVE ARTS THERAPIST Unavailable Mynor Broussard MD Unavailable Keisha Dotson MD Unavailable Galo Burrell MD Unavailable Diana Desir [facility] Unavailable Rain Galaviz PA-C Unavailable [phone] Summer Lara MD Unavailable Tavia Wyatt MD Unavailable Unavailable Johnny Murillo MD Unavailable [phone] Erica Farrell APRN CREATIVE ARTS THERAPIST Unavailable Reason for Visit Reason Comments Urgent Care Chest Pain Left arm pain, chest pain an d jaw feels weird Vaginal Problem Also having dark menstration s-Thinks there may be a tampon stuck in vagina Encounter Details Date Type Department Care Team Description 10/11/[address] [facility] Langeness, Deborah, Other chest pain (Primary Dx); Urgent Care Tiago woods PA-C Dizziness; [address] [facility] Vaginal bleeding [facility] [address] [address] [phone] [place] [address] Social History Tobacco Use Types Packs/Day Years [...] How often do you attend methodist or taoist services? Never 09/22/2021 Do you belong to [...] been in contact with No / Unsure 10/11/2021 4:03 PM CDT someone who was confirmed or suspected to have Coronavirus / COVID-19? documented as of this encounter Last Filed Vital Signs Vital Sign Reading Time Taken Comments Blood Pressure 106/67 10/11/2021 4:09 PM CDT Pulse 78 10/11/2021 4:09 PM CDT Temperature 36.5 ??C (97.7 ??F) 10/11/2021 4:09 PM CDT Respiratory Rate 16 10/11/2021 4:09 PM CDT Oxygen Saturation 98% 10/11/2021 4:09 PM CDT Inhaled Oxygen Concentration - - Weight - - Height - - Body Mass Index - - documented in this encounter Patient Instructions Patient InstructionsDeborah Oscar PA-C - 10/11/2021 4:05 PM CDT Images from the original note were not included. Patient Education Anxiety??Reaction Anxiety is the feeling we all get when we think something bad might happen. It is a normal response to stress and normally causes only a mild reaction. When anxiety becomes more severe, it can??interfere with daily life. In some cases, you may not even be aware of what you???re anxious about. There may also be a genetic link. Or it may be a learned behavior in the home. Both psychological and physical triggers cause stress reaction. It's often a response to fear or emotional stress, real or imagined. This stress may come from home, family, work, or social relationships. During an anxiety reaction, you may feel: ?? Helpless ?? Nervous ?? Depressed ?? Grouchy Your body may show signs of anxiety in many ways. You may experience: ?? Dry mouth ?? Shakiness ?? Dizziness ?? Weakness ?? Trouble breathing ?? Breathing fast (hyperventilating) ?? Chest pressure ?? Sweating ?? Headache ?? Nausea ?? Diarrhea ?? Tiredness ?? Inability to sleep ?? Sexual problems Home care ?? Try to find the sources of stress in your life. They may not be obvious. These may include: ? Daily hassles of life (such as traffic jams, missed appointments, or car troubles) ? Major life changes, both good (new baby or job promotion) and bad (loss of job or loss of loved one) ? Overload (feeling that you have too many responsibilities and can't take care of all of them at once) ? Feeling helpless or feeling that your problems can't be solved ?? Notice how your body reacts to stress. Learn to listen to your body signals. This will help you take action before the stress becomes severe. ?? When you can, do something about the source of your stress. (Avoid hassles, limit the amount of change that happens in your life at one time, and take a break when you feel overloaded). ?? Unfortunately, many stressful situations can't be avoided. It is necessary to learn how to bettermanage stress. There are many proven methods that will reduce your anxiety. These include simple things such as exercise, good nutrition, and adequate rest. Also, there are certain techniques that are helpful: ? Relaxation ? Breathing exercises ? Visualization ? Biofeedback ? Meditation For more information about this, talk with your healthcare provider. Or check online or at your local library or bookstore. You'll find many books and audiobooks on this subject. Follow-up care If you feel your anxiety is not responding to self-help measures, call your healthcare provider or make an appointment with a counselor. You may need short- term psychological counseling or medicine to help you manage stress. Call 911 Call 911 if any of these happen: ?? Trouble breathing ?? Confusion ?? Drowsiness or trouble waking up ?? Fainting or loss of consciousness ?? Rapid heart rate ?? Seizure ?? New chest pain that becomes more severe, lasts longer, or spreads into your shoulder, arm, neck, jaw, or back When to get medical advice Call your healthcare provider right away if any of these happen: ?? Your symptoms get worse ?? Severe headache not eased by rest and mild pain reliever [employer] last reviewed this educational content on 10/10/2019 ?? 3511-6835 [employer]. All rights reserved. This information is not intended as a substitute for professional medical care. Always follow your healthcare professional's instructions. Follow up with your primary care provider this week. documented in this encounter Progress Notes Deborah Oscar PA-C - 10/11/2021 4:05 PM CDT Assessment & Plan Chest pain - EKG 12-lead complete w/read - Clinics She is currently wearing a heart rate monitor for 14 days for SVT evaluation. 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 Instructed going to the ER if symptoms return or persist. Dizziness - CBC with platelets - CBC with platelets Vaginal bleeding - CBC with platelets Normal pelvic and bimanual exam. CBC does not indicate anemia. Called patient with the results. Diagnosis and treatment plan were discussed with patient and/or parent. If symptoms worsen or do notimprove in the next few days, follow-up with your primary care provider or visit an [facility] urgent care clinic location. Patient verbalizes understanding of all things discussed. All questions were addressed and answered. See patient instructions Return in about 1 week (around 10/18/2021) for If not better, sooner if worsening. Deborah Oscar PA-C [facility] CIERRA Alvarez is a 21 year old female who presents to clinic today for the following health issues: Chief Complaint Patient presents with ??? Urgent Care ??? Chest Pain Left arm pain, chest pain and jaw feels weird ??? Vaginal Problem Also having dark menstrations-Thinks there may be a tampon stuck in vagina HPI An hour and a half ago she was having left arm pain and her jaw was feeling tight/sore. She states she has felt anxious today. She has a heart monitor on for SVT. She was also having chest pain min. She states symptoms have resolved now and thinks they may be attributable to anxiety. She has had anxiety in the past. She also reports dark vaginal blood during her current menstrual cycle and requests pelvic exam. Sheis concerned about a retained tampon possibly. Review of Systems Constitutional, HEENT, cardiovascular, pulmonary, gi and gu systems are negative, except as otherwise noted. Objective BP 106/67 Pulse 78 Temp 97.7 ??F (36.5 ??C) (Oral) Resp 16 LMP 10/09/2021 SpO2 98% Yes Physical Exam GENERAL: healthy, alert and no distress EYES: Eyes grossly normal to inspection, PERRL and conjunctivae and sclerae normal NECK: no adenopathy, no asymmetry, masses, or scars and thyroid normal to palpation RESP: lungs clear to auscultation - no rales, rhonchi or wheezes CV: regular rate and rhythm, normal S1 S2, no S3 or S4, no murmur, click or rub, no peripheral edemaand peripheral pulses strong ABDOMEN: soft, nontender, no hepatosplenomegaly, no masses and bowel sounds normal (female): normal female external genitalia, normal urethral meatus, vaginal mucosa, normal cervix/adnexa/uterus without masses or discharge, mild amount of dark blood in vagina, No foreign body. MS: no gross musculoskeletal defects noted, no edema EKG - Reviewed and interpreted by me appears normal, NSR, normal axis, normal intervals, no acute ST/T changes c/w ischemia, no LVH by voltage criteria documented in this encounter Plan of Treatment Upcoming Encounters Date Type Specialty Care Team Description 04/28/2022 Office Visit [facility] Anthony Doe PA-C [address] [place] [address] (Wo rk) 05/03/2022 Office Visit Dermatology Neil Kent M D [address] [place] [address] (Wo rk) 05/05/2022 Office Visit Optometry Yeny David, OD [address] [place], [place] [phone] (Wo rk) 05/11/2022 Virtual Visit Pharm D Diana Desir , [facility] [address] [place], [place] [phone] (Wo rk) 05/14/2022 Office Visit Cardiology Livan Sharif MD [address] , [address] [place] [address] (Wo rk) 05/31/2022 Office Visit [facility] Valery Veronica PA-C [address] [place] [address] (Wo rk) documented as of this encounter Procedures Procedure Name Priority Date/Time Associated Diagnosis Comme nts CBC WITH PLATELETS Routine 10/11/2021 5:08 PM Dizziness Results for this CDT Vaginal bleeding procedure a re in the results section. EKG 12-LEAD Routine 10/11/2021 Other chest pain Results for this COMPLETE W/READ - procedure are in CLINICS the results section. documented in this encounter Results (ABNORMAL) CBC with platelets (10/11/2021 5:08 PM CDT) [facility] gist Method Time Signature WBC Count 7.8 4.0 - 11.0 10/11/2021 [facility] 10e3/uL 5:28 PM CDT RBC Count 4.90 3.80 - 10/11/2021 [facility] 5.20 5:28 PM CDT 10e6/uL Hemoglobin 12.5 11.7 - 10/11/2021 [facility] 15.7 g/dL 5:28 PM CDT Hematocrit 39.2 35.0 - 10/11/2021 [facility] 47.0 % 5:28 PM CDT MCV 80 78 - 100 10/11/2021 [facility] fL 5:28 PM CDT MCH 25.5 (L) 26.5 - 10/11/2021 [facility] 33.0 pg 5:28 PM CDT MCHC 31.9 31.5 - 10/11/2021 [facility] 36.5 g/dL 5:28 PM CDT RDW 13.7 10.0 - 10/11/2021 [facility] 15.0 % 5:28 PM CDT Platelet Count 284 150 - 450 10/11/2021 [facility] 10e3/uL 5:28 PM CDT Specimen Anatomical Collection Method / Collection Time Recei chelsie Time (Source) Location / Volume Laterality Blood STRUCTURE OF RIGHT Venipuncture / 10/11/2021 5:08 04/0 09/2021 5:08 UPPER LIMB / Unknown PM CDT PM CDT Unknown Deborah Oscar PA-C LAB - BLOOD ORDERABLES Performing Organization Address City/State/ZIP Code Ph[place] [address] Lab [address] [facility] (no room number, 1st floor of clinic) [place] [address], [facility] [address] [facility] (no room number, 1st floor of clinic) EKG 12-lead complete w/read - Clinics (10/11/2021) Narrative This result has an attachment that is no t available. Deborah Celestina LAYNE ECG ORDERABLES documented in this encounter Visit Diagnoses Diagnosis Other chest pain - Primary Dizziness Dizziness and giddiness Vaginal bleeding Other specified noninflammatory disorder of vagina documented in this encounter Additional Health Concerns Assessment Noted Time PHQ-9 Depression Total Score: 2 04/02/2021 10:19 AM CD T documented as of this encounter Care Teams Teletype Operator Relationship Specialty Start Date End Date Marija Edgar, PCP - General Nurse Practitioner 04/30/20 ALARM MECHANIC CREATIVE ARTS THERAPIST [address] [place] [address] Lita Oseguera Personal Advocate & 02/28/20 Liaison (PAL) Marija Edgar, Assigned PCP 06/08/20 ALARM MECHANIC CREATIVE ARTS THERAPIST [address] [place] [address] Mynor Broussard MD Assigned Surgical 06/01/20 11/28/21 [address] Provider [address] [place] [address] Mauri, Melody Neuroscience 06/04/20 MD Keisha Provider [address] [place] [address] Galo Burrell MD Assigned Heart and 10/05/20 04/02/22 [address] Vascular Provider [address] [place] [id number] Diana Desir, Pharmacist Pharmacist 04/17/21 [facility] [address] [place], [place] [address] Rain Galaviz Physician Pelt Grader Dermatology 04/28/21 [address] [facility] [place] [phone] Summer Lara MD Assigned OBGYN Provider 05/31/21 03/12/[address] [place] [address] Tavia Wyatt MD Dermatology 07/14/21 Johnny Medrano Assigned Musculoskeletal 08/30/21 03/17/22 MD Ish Provider [address] [place] [address] Erica Farrell Nurse Practitioner Cardiovascular Disease 09/09/21 ARLENE Guidry CREATIVE ARTS THERAPIST [address] [facility] [address] [place] [id number] documented as of this encounter
--- OUTSIDE RECORDS SUMMARY | 2022-04-28 01:08 | XMS_ITS | Encounter Summary ---
:2000 Author Organization [facility] Address [address] [place] [address] Care Team Providers Name Role Phone Lita Oseguera Unavailable Unavailable Marija Edgar APRN PRE SCHOOL MANAGER Primary Care Provider [phone] Marija Edgar APRN PRE SCHOOL MANAGER Unavailable Mynor Broussard MD Unavailable Keisha Dotson MD Unavailable Galo Burrell MD Unavailable Diana Desir [facility] Unavailable Rain Galaviz PA-C Unavailable [phone] Summer Lara MD Unavailable Tavia Wyatt MD Unavailable Unavailable Johnny Murillo MD Unavailable [phone] Erica Farrell APRN PRE SCHOOL MANAGER Unavailable [phone] Reason for Visit Reason Comments Medication Therapy Management Encounter Details Date Type Department Care Team Description 10/20/2021 Virtual Visit [facility] Diana Desir, Anxi ety (Primary Dx); Clinic [facility] Moderate major depression (H) [address] [address] [phone] (Wo rk) Social History Tobacco Use Types [...] week 09/22/2021 How often do you attend christianity or worship services? Never 09/22/2021 Do you belong to any clubs or organizations such as No 09/22/2021 christianity groups, unions, fraternal or athletic groups, or [...] / COVID-19? documented as of this encounter Patient Instructions Patient InstructionsWDiana nuñez, [facility] - 10/20/2021 11:43 AM CDT Recommendations from today's MTM visit: 1. Continue sertraline at 100 mg daily. If anxiety throughout this week worsens and does not improveafter 1 week, okay to start paroxetine 10 mg daily at bedtime early. Otherwise remain off paroxetineand only take sertraline 100 mg daily until next follow-up in 2 weeks. It was great to speak with you today. I value your experience and would be very thankful for your time with providing feedback on our clinic survey. You may receive a survey via email or text message in the next few days. To schedule another MTM appointment, please call the clinic directly or you may call the MTM scheduling line at [phone] or toll-free at . My Clinical Pharmacist's contact information: Please feel free to contact me with any questions or concerns you have. Diana Desir, PharmD Medication Therapy Management Provider, [facility] documented in this encounter Progress Notes Diana Desir RPH - 10/20/2021 11:30 AM CDT Medication Therapy Management (MTM) Encounter ASSESSMENT: Medication Adherence/Access: No issues identified Anxiety/Depression: Unimproved - she would benefit from switching sertraline to either another selective serotonin reuptake inhibitor or SNRI. 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 After discussion of risks vs benefits last visit, will switch sertraline to paroxetine and she will continue . Will continue to decrease sertraline dose closely together and if able to decrease to sertraline 50 mg on f/up in 2 weeks, then will start low dose paroxetine then. However if anxiety worsens and unable to get down to 50 mg of sertraline, okay to start paroxetine cross taper early if needed. Will do a slow cross taper as I worry about her having worsened panic attacks and needing to increase lorazepam use if no cross taper at this time. Did discuss risks of serotonin syndrome and symptoms to monitor for. Okay for her to continue minimal use of lorazepam for now and benefits may outweighrisks with as relative infant dose is <5% (2.4-4.7%). Pharmacokinetic Gene Variants Gene Phenotype Notable Medications Impacted CYP2C9 Intermediate Metabolizer fluoxetine MTHFR Reduced Conversion Pharmacodynamic Gene Variants Gene Phenotype Notable Medications Impacted SLC6A4 Intermediate Response Sertraline and other SSRIs ADRA2A Moderately Reduced Response PLAN: 1. Continue sertraline at 100 mg daily. If anxiety throughout this week worsens and does not improveafter 1 week, okay to start paroxetine 10 mg daily at bedtime early. Otherwise remain off paroxetineand only take sertraline 100 mg daily until next follow-up in 2 weeks. Follow-up: Return in about 2 weeks (around 11/03/2021) for Medication Therapy Management Pharmacist. SUBJECTIVE/OBJECTIVE: Kim Johnson is a 21 year old female called for a follow-up visit. Today's visit is a follow-up MTM visit from 10/14. Reason for visit: sertraline taper Tobacco: She reports that she quit smoking about 22 months ago. Her smoking use included other. She smoked 1.00 pack per day. She has never used smokeless tobacco. Alcohol: not currently using Medication Adherence/Access: no issues reported Anxiety/Depression: Current medications include: Sertraline 100 mg once daily (tapering off, first day today on 100 mg instead of 150 mg) and lorazepam 0.5 mg as needed (minimizing use, using more lately past 2 weeks d/t worsened anxiety, has not needed however for past 3 days). Hasn't started paroxetine, nervous to and down in the dumps more lately. Anxious to start a new medication, planning on taking paroxetine tonight but nervous to. Been on sertraline since high school, works okay but obessiveabout certain things. Anxiety similar to when on sertraline 200 mg/day she thinks but first week decreasing dose was worse. Overthinks a lot, worries a lot. More anxiety, not a very depressed person. Still 6 month old. Worried about more panic attacks - does have worsened anxiety whenforgets a sertraline dose. Lorazepam really helps. Following therapist and did see psychiatrist. Past med trial: Buspirone (made her feel very weird, suicidal thoughts she thinks) PHQ 09/29/2020 03/02/2021 04/02/2021 PHQ-9 Total Score 6 2 2 Q9: Thoughts of better off /self-harm past 2 weeks Not at all Not at all Not at all KALYN-7 SCORE 09/29/2020 03/02/2021 04/02/2021 Total Score 12 (moderate anxiety) 4 (minimal anxiety) 4 (minimal anxiety) Total Score 14 4 4 Today's Vitals: none I spent 8 minutes with this patient today. All changes were made via collaborative practice agreement with Marija Edgar APRN CNP. A copy of the visit note was provided to the patient's provider(s). The patient was sent via [employer] a summary of these recommendations. Diana Desir PharmD Medication Therapy Management Provider, [facility] Pager: [phone] Telemedicine Visit Details Type of service: Telephone visit Start Time: 11:32 AM End Time: 11:40 AM Originating Location (patient location): Home Distant Location (provider location): [facility] Medication Therapy Recommendations No medication therapy recommendations to display documented in this encounter Plan of Treatment Upcoming Encounters Date Type Specialty Care Team Description 04/28/2022 Office Visit Family Practice Anthony Doe, [address] [address] [place], [place] [phone] ([place]) 05/03/2022 Office Visit Dermatology Neil Kent M D [address] [place], [place] [address] ([place]) 05/05/2022 Office Visit Optometry Yeny David, OD [address] [facility] [place] [phone] ([place]) 05/11/2022 Virtual Visit Pharm Diana Eckert [facility] [address] [place], [place] [address] (Wo rk) 05/14/2022 Office Visit Cardiology Livan Sharif MD [address], [address] [place] [phone] (Wo rk) 05/31/2022 Office Visit Family Practice Valery Veronica PA-C [address] [place], [place] [address] (Wo rk) documented as of this encounter Visit Diagnoses Diagnosis Anxiety - Primary Anxiety state, unspecified Moderate major depression (H) Major depressive disorder, single episod e, moderate documented in this encounter Additional Health Concerns Assessment Noted Time PHQ-9 Depression Total Score: 2 04/02/2021 10:19 AM CD T documented as of this encounter Care Teams Manager Intel Relationship Specialty Start Date End Date Marija Edgar, PCP - General Nurse Practitioner 04/30/20 [employer] TECHNICIAN PRE SCHOOL MANAGER [address] [place] [address] Lita Oseguera Personal Advocate & 02/28/20 Liaison (PAL) Marija Edgar, Assigned PCP 06/08/20 [employer] TECHNICIAN PRE SCHOOL MANAGER [address] [place] [address] Mynor Broussard MD Assigned Surgical 06/01/20 11/28/21 [address] Provider [address] [place] [address] Trevor-Brittani, Assigned Neuroscience 06/04/20 MD Keisha Provider [address] [place] [address] Galo Burrell MD Assigned Heart and 10/05/20 04/02/22 [address] Vascular Provider [address] [place] [address] Diana Desir, Pharmacist Pharmacist 04/17/21 [facility] [address] [place], [place] [address] Rain Galaviz Physician Prescriptionist Dermatology 04/28/21 ROVERTO Paredes [address] [facility] [address] [facility] [place] [phone] Summer Lara MD Assigned OBGYN Provider 05/31/21 03/12/[address] [place], [place] [phone] Tavia Wyatt MD Dermatology 07/14/21 Johnny Medrano Assigned Musculoskeletal 08/30/21 03/17/22 MD Ish Provider [address] [place] [address] Erica Farrell Nurse Practitioner Cardiovascular Disease 09/09/21 ARLENE Guidry PRE SCHOOL MANAGER [address] [facility] [address] [place] [id number] documented as of this encounter
--- OUTSIDE RECORDS SUMMARY | 2022-04-28 01:08 | XMS_ITS | Encounter Summary ---
:2000 Author Organization [facility] Address [address] [place] [address] Care Team Providers Name Role Phone Lita Oseguera Unavailable Unavailable Marija Edgar APRN TRIPE COOKER Primary Care Provider [phone] Marija Edgar APRN TRIPE COOKER Unavailable Mynor Broussard MD Unavailable Keisha Dotson MD Unavailable Galo Burrell MD Unavailable Diana Desir [facility] Unavailable Rain Galaviz PA-C Unavailable [phone] Summer Lara MD Unavailable Tavia Wyatt MD Unavailable Unavailable Johnny Murillo MD Unavailable [phone] Erica Farrell APRN TRIPE COOKER Unavailable [phone] Encounter Details Date Type Department Care Team Description 11/12/2021 Travel Social History Tobacco Use Types Packs/Day [...] week 09/22/2021 How often do you attend baptist or restorationist services? Never 09/22/2021 Do you belong to any clubs or organizations such as No 09/22/2021 baptist groups, unions, fraternal or athletic groups, or [...] Office Visit Family Practice Anthony Doe PA-C [address] [place], [place] [phone] (Wo rk) 05/03/2022 Office Visit Dermatology Neil Kent M D 500 [place] [address] (Wo rk) 05/05/2022 Office Visit Optometry Yeny David, OD [address] [facility] [address] [place], [place] [phone] (Wo rk) 05/11/2022 Virtual Visit Pharm D Diana Desir , [facility] [address] [place] [address] (Wo rk) 05/14/2022 Office Visit Cardiology Livan Sharif MD [address], [address] [place], [place] [address] (Wo rk) 05/31/2022 Office Visit Family Practice Valery Veronica , PAUcheC [address] [place], [place] [address]405 (Wo rk) documented as of this encounter Visit Diagnoses Not on filedocumented in this encounter Additional Health Concerns Assessment Noted Time PHQ-9 Depression Total Score: 2 04/02/2021 10:19 AM CD T documented as of this encounter Care Teams Health Care / Medical Job Titles Relationship Specialty Start Date End Date Marija Edgar, PCP - General Nurse Practitioner 04/30/20 INSIGHTS MANAGER TRIPE COOKER [address] [place] [address] Lita Oseguera Personal Advocate & 02/28/20 Liaison (PAL) Marija Edgar, Assigned PCP 06/08/20 INSIGHTS MANAGER TRIPE COOKER [address] [place] [address] Mynor Broussard MD Assigned Surgical 06/01/20 11/28/21 [address] Provider [address] [place], [place] [address] Mauri, Assigned Neuroscience 06/04/20 MD Keisha Provider 9 [place], [place] [address] Galo Burrell MD Assigned Heart and 10/05/20 04/02/22 [address] Vascular Provider [address] [place] [id number] Diana Desir, Pharmacist Pharmacist 04/17/21 [facility] [address] [place], [place] [address] Rain Galaviz Physician Licensed Electrician Dermatology 04/28/21 ROVERTO Paredes [address] [address] [place] [id number] Summer Lara MD Assigned OBGYN Provider 05/31/21 03/12/[address] [place], [place] [address] Tavia Wyatt MD Dermatology 07/14/21 Johnny Medrano Assigned Musculoskeletal 08/30/21 03/17/22 MD Ish Provider [address] [place], [place] [address] Erica Farrell Nurse Practitioner Cardiovascular Disease 09/09/21 ARLENE Guidry TRIPE COOKER [address] [place] [address] documented as of this encounter
--- OUTSIDE RECORDS SUMMARY | 2022-04-28 01:08 | XMS_ITS | Encounter Summary ---
:2000 Author Organization [facility] Address [address] [place] [address] Care Team Providers Name Role Phone Lita Oseguera Unavailable Unavailable Marija Edgar APRN WINDOWS SOFTWARE DEVELOPER Primary Care Provider [phone] Marija Edgar APRN WINDOWS SOFTWARE DEVELOPER Unavailable Mynor Broussard MD Unavailable Keisha Dotson MD Unavailable Galo Burrell MD Unavailable Diana Desir [facility] Unavailable Rain Galaviz PA-C Unavailable [phone] Summer Lara MD Unavailable Tavia Wyatt MD Unavailable Unavailable Johnny Murillo MD Unavailable [phone] Erica Farrell APRN WINDOWS SOFTWARE DEVELOPER Unavailable Tavia Wyatt MD Unavailable Unavailable Diana Desir [facility] Unavailable Rihc Barrett MD Unavailable [phone] Neil Kent MD Unavailable Roney Story DPM Unavailable Erica Farrell APRN WINDOWS SOFTWARE DEVELOPER Unavailable [phone] Diana Desir [facility] Unavailable Reason for Visit Reason Onset Date Comments Refill Request 10/31/2021 sertraline Encounter Details Date Type Department Care Team Description 10/31/2021 Refill [facility] Marija Edgar Refill Request [place] INSPECTOR BULLET SLUGS WINDOWS SOFTWARE DEVELOPER (sertraline) [address] [address] [phone] (Wo rk) Social History Tobacco Use Types [...] week 09/22/2021 How often do you attend sikh or yazdanism services? Never 09/22/2021 Do you belong to any clubs or organizations such as No 09/22/2021 sikh groups, unions, fraternal or athletic groups, or [...] place to sleep or slept in a half-way (including now)? Education Answer Date Recorded What is the highest level of school you have completed or 12 th grade 08/07/2020 the highest degree you have received? Sex Assigned at Date Recorded Female 03/02/2021 5:45 PM CDT COVID-19 Exposure Response Date Recorded In the last 10 days, have you been in contact with No / Unsu re 10/30/2021 10:32 AM CDT someone who was confirmed or suspected to have Coronavirus/COVID-19? documented as of this encounter Miscellaneous Notes Telephone Encounter - Diana Desir RPH - 11/02/2021 8:58 AM CDT Approved per [facility] CPA. Diana Desir PharmD Medication Therapy Management Provider, [facility] Pager: [phone] Telephone Encounter - Aleyda Scott RN - 11/02/2021 7:49 AM CDT Called patient. Pt states that she is out of the sertraline, but pharmacy gave her five tablets to get through. Pt states that she is doing the sertraline taper but still has a way to go in reducing her dose. Pt states that she is currently taking 100 mg daily. Pt has follow up tomorrow with [facility] pharmacist to continue to work on taper. Appointments in Next Year Nov 03, 2021 3:30 PM Pharmacist Visit with Diana Desir RPH [facility] ([facility] ) [phone] Informed patient that will route refill request to Diana Desir. Pt verbalized understanding and isin agreement of plan. Aleyda Alvarez RN Telephone Encounter - Amalia Deluca - 10/31/2021 10:31 AM CDTSummary: MEDICATION REQUEST FROM PHARM Reason for Call: Other prescription Detailed comments: PHARM SAYS- PT IS TAPERING OFF OF SERTALINE BUT IS CURRENTLY OUT OF TABS AND LOOKS LIKE CLINIC CANCELLED REMAIN REFILLS YESTERDAY, CALLING TO REQUEST GET REST OF HER TAPER Phone Number Patient can be reached at: Other phone number: [phone] Best Time: ANYTIME Can we leave a detailed message on this number? YES Call taken on 10/31/2021 at 10:31 AM by Amalia Deluca documented in this encounter Plan of Treatment Upcoming Encounters Date Type Specialty Care Team Description 04/28/2022 Office Visit Family Practice Anthony Doe, PAUcheC [address] [place], [place] [phone] (Wo rk) 05/03/2022 Office Visit Dermatology Neil Kent M D [address] [place], [place] [address] (Wo rk) 05/05/2022 Office Visit Optometry Yeny David, OD [address] [facility] [address] [place], [place] [phone] (Wo rk) 05/11/2022 Virtual Visit Pharm D Diana Desir , [facility] [address] [place], [place] [phone] (Wo rk) 05/14/2022 Office Visit Cardiology Livan Sharif MD [address] [facility] [address] [place], [place] [address] (Wo rk) 05/31/2022 Office Visit Family Practice Valery Veronica , PAUcheC [address] [place], [place] [phone] (Wo rk) documented as of this encounter Visit Diagnoses Diagnosis Moderate major depression (H) - Primary Major depressive disorder, single episod e, moderate [...] documented as of this encounter Care Teams Commercial Banker Relationship Specialty Start Date End Date Marija Edgar, PCP - General Nurse Practitioner 04/30/20 INSPECTOR BULLET SLUGS WINDOWS SOFTWARE DEVELOPER [address] [place] [address] Lita Oseguera Personal Advocate & 02/28/20 Liaison (PAL) Marija Edgar, Assigned PCP 06/08/20 INSPECTOR BULLET SLUGS WINDOWS SOFTWARE DEVELOPER [address] [place] [address] Mynor Broussard MD Assigned Surgical 06/01/20 11/28/[address] Provider [address] [place], [place] [address] Mauri, Assigned Neuroscience 06/04/20 MD Keisha Provider [address] [place], [place] [address] Galo Burrell MD Assigned Heart and 10/05/20 04/02/22 [address] Vascular Provider [address] [place], [place] [address] Diana Desir, Pharmacist Pharmacist 04/17/21 [facility] [address] [place], [place] [phone] Rain Galaviz Physician Seo Engineer Dermatology 04/28/21 ROVERTO Paredes [address] [place] [address] [address] [place] [facility] [place] [id number] Summer Lara MD Assigned OBGYN Provider 05/31/21 03/12/22 [address] [place] [address] Tavia Wyatt MD Dermatology 07/14/21 Johnny Medrano Assigned Musculoskeletal 08/30/21 03/17/22 MD Ish Provider [address] [place], [place] [phone] Erica Farrell Nurse Practitioner Cardiovascular Disease 09/09/21 ARLENE Guidry WINDOWS SOFTWARE DEVELOPER [address] [facility] [address] [place], [place] [address] Tavia Wyatt, Assigned Surgical 11/29/21 MD Provider Dinaa Desir, Assigned MTM Pharmacist 01/02/22 03/26/22 [facility] [address] [place], [place] [address] Rich Barrett Physician Ophthalmology 01/21/22 Gerson Reyes MD [address] [facility] [address] [place] [address] Neil Kent MD MD Dermatology 02/24/22 500 [place] [address] Roney Story, Assigned Musculoskeletal 03/20/22 DPM Provider [address] [facility] [address] [place] [address] Erica Farrell Assigned Heart and 04/03/22 ARLENE Guidry WINDOWS SOFTWARE DEVELOPER Vascular Provider [address] [place] [address] Diana Desir, Assigned MTM Pharmacist 04/07/22 [facility] [address] [place] [address] documented as of this encounter
--- OUTSIDE RECORDS SUMMARY | 2022-04-28 01:08 | XMS_ITS | Encounter Summary ---
:2000 Author Organization [facility] Address [address] [place] [address] Care Team Providers Name Role Phone Lita Oseguera Unavailable Unavailable Marija Edgar APRN WOOL GROWER Primary Care Provider [phone] Marija Edgar APRN WOOL GROWER Unavailable Keisha Dotson MD Unavailable Galo Burrell MD Unavailable Diana Desir [facility] Unavailable Rain Galaviz PA-C Unavailable [phone] Summer Lara MD Unavailable Tavia Wyatt MD Unavailable Unavailable Johnny Murillo MD Unavailable [phone] Erica Farrell APRN WOOL GROWER Unavailable [phone] Tavia Wyatt MD Unavailable Unavailable Reason for Visit Reason Comments Medication Therapy Management Encounter Details Date Type Department Care Team Description 11/30/2021 Virtual Visit [facility] Diana Desir, Anxi ety (Primary Dx); Clinic [facility] Moderate major depression (H) [address] [address] (Wo rk) Social History Tobacco Use Types [...] week 09/22/2021 How often do you attend presybeterian or islam services? Never 09/22/2021 Do you belong to any clubs or organizations such as No 09/22/2021 presybeterian groups, unions, fraternal or athletic groups, or [...] encounter Patient Instructions Patient InstructionsWDiana nuñez, [facility] - 11/30/2021 1:53 PM CDT Recommendations from today's MTM visit: 1. Decrease sertraline to 25 mg daily for 1 week then stop taking. 2. Increase paroxetine to 20 mg daily at bedtime. It was great speaking with you today. I value your experience and would be very thankful for your time in providing feedback in our clinic survey. In the next few days, you may receive an email or textmessage from [employer] with a link to a survey related to your ???clinical pharmacist. To schedule another MTM appointment, please call the clinic directly or you may call the MTM scheduling line at [phone] or toll-free at . My Clinical Pharmacist's contact information: Please feel free to contact me with any questions or concerns you have. Diana Desir, Luis AlbertoD Medication Therapy Management Provider, [facility] documented in this encounter Progress Notes Diana Desir RPH - 11/30/2021 1:30 PM CDT Medication Therapy Management (MTM) Encounter ASSESSMENT: Medication Adherence/Access: No issues identified Anxiety/Depression: Will continue with cross taper to get her off sertraline and continue to increase paroxetine dose Pharmacokinetic Gene Variants Gene Phenotype Notable Medications Impacted CYP2C9 Intermediate Metabolizer fluoxetine MTHFR Reduced Conversion Pharmacodynamic Gene Variants Gene Phenotype Notable Medications Impacted SLC6A4 Intermediate Response Sertraline and other SSRIs ADRA2A Moderately Reduced Response PLAN: 1. Decrease sertraline to 25 mg daily for 1 week then stop taking. 2. Increase paroxetine to 20 mg daily at bedtime. Follow-up: Return in about 2 weeks (around 12/14/2021) for Medication Therapy Management Pharmacist. SUBJECTIVE/OBJECTIVE: Kim Johnson is a 21 year old female called for a follow-up visit. Today's visit is a follow-up MTM visit from 11/13. Reason for visit: sertraline taper Tobacco: She reports that she quit smoking about 1 years ago. Her smoking use included other. She smoked 1.00 pack per day. She has never used smokeless tobacco. Alcohol: not currently using Medication Adherence/Access: no issues reported Anxiety/Depression: Current medications include: Sertraline 50 mg once daily (tapering off, no withdrawal symptoms so far) and lorazepam 0.5 mg as needed (minimizing use, twice weekly some weeks). Feeling more down in the dumps and still anxious but doing okay with the medication changes so far. Feels changes in general makes her feel this way rather than withdrawal symptoms from sertraline. Been on sertraline since high school, worked okay but obessive about certain things. Overthinks a lot, worries a lot. Still 8 month old. no side effects so far from paroxetine. Lorazepam really helps for panic. Following therapist [...] patient's provider(s). The patient was sent via [employer] a summary of these recommendations. Diana Desir, Lorna Medication Therapy Management Provider, [facility] Pager: [phone] Telemedicine Visit Details Type of service: Telephone visit Start Time: 1:30 PM End Time: 1:38 PM Originating Location (patient location): Home Distant Location (provider location): [facility] Medication Therapy Recommendations Moderate major depression (H) Current Medication: PARoxetine (PAXIL) 20 MG tablet Rationale: Dose too low - Dosage too low - Effectiveness Recommendation: Increase Dose - sertraline 50 MG tablet Status: Accepted per CPA documented in this encounter Plan of Treatment Upcoming Encounters Date Type Specialty Care Team Description 04/28/2022 Office Visit Family Practice Anthony Doe PA-C [address] [place], [place] [phone] (Wo rk) 05/03/2022 Office Visit Dermatology Neil Kent M D [address] [place], [place] [address] (Wo rk) 05/05/2022 Office Visit Optometry Yeny David, OD [address] [facility] [place] [address] (Wo rk) 05/11/2022 Virtual Visit Pharm D Diana Desir , [facility] [address] [place], [place] [address] (Wo rk) 05/14/2022 Office Visit Cardiology Livan Sharif MD [address], [address] [place], [place] [address] (Wo rk) 05/31/2022 Office Visit Family Practice Valery Veronica PA-C [address] [place], [place] [address] (Wo rk) documented as of this encounter Visit Diagnoses Diagnosis Anxiety - Primary Anxiety state, unspecified Moderate major depression (H) Major depressive disorder, single episod e, moderate documented in this encounter Additional Health Concerns Assessment Noted Time PHQ-9 Depression Total Score: 2 04/02/2021 10:19 AM CD T documented as of this encounter Care Teams Supervisor Last Model Department Relationship Specialty Start Date End Date Marija Edgar, PCP - General Nurse Practitioner 04/30/20 RETURN TO FACTORY CLERK WOOL GROWER [address] [place], [place] [phone] Lita Oseguera Personal Advocate & 02/28/20 Liaison (PAL) Marija Edgar, Assigned PCP 06/08/20 RETURN TO FACTORY CLERK WOOL GROWER [address] [place], [place] [phone] Mauri, Assigned Neuroscience 06/04/20 MD Keisha Provider [address] [place], [place] [address] Galo Burrell MD Assigned Heart and 10/05/20 04/02/[address] Vascular Provider [address] [place] [address] Dinaa Desir, Pharmacist Pharmacist 04/17/21 [facility] [address] [place], [place] [address] Rain Galaviz Physician Dance Professor Dermatology 04/28/21 ROVERTO Paredes [address] [place] [address] [facility] [place] [phone] Summer Lara MD Assigned OBGYN Provider 05/31/21 03/12/[address] [place], [place] [address] Tavia Wyatt MD Dermatology 07/14/21 Johnny Medrano Assigned Musculoskeletal 08/30/21 03/17/22 MD Ish Provider [address] [place], [place] [address] Erica Farrell Nurse Practitioner Cardiovascular Disease 09/09/21 ARLENE Guidry WOOL GROWER [address] [place] [address] Tavia Wyatt, Assigned Surgical 11/29/21 Provider documented as of this encounter
--- OUTSIDE RECORDS SUMMARY | 2022-04-28 01:08 | XMS_ITS | Encounter Summary ---
:2000 Author Organization [facility] Address [address] [place] [address]. [place] [address] Care Team Providers Name Role Phone Lita Oseguera Unavailable Unavailable Marija Edgar APRN FOUNDRY MANAGER Primary Care Provider [phone] Marija Edgar APRN FOUNDRY MANAGER Unavailable Mynor Broussard MD Unavailable Keisha Dotson MD Unavailable Galo Burrell MD Unavailable Diana Desir [facility] Unavailable Rain Galaviz PA-C Unavailable [phone] Summer Lara MD Unavailable Tavia Wyatt MD Unavailable Unavailable Johnny Murillo MD Unavailable [phone] Erica Farrell APRN FOUNDRY MANAGER Unavailable Reason for Visit Reason Onset Date Comments Results 10/27/2021 Frida 10/02/2021 Encounter Details Date Type Department Care Team Description 10/27/2021 [facility] Erica Farrell Results ([facility] Cesar Guidry APRN CNP 10/02/2021) [address] [address] [facility] [address] [place] [address] [place] [address] [phone] Social History Tobacco Use Types Packs/Day Years [...] week 09/22/2021 How often do you attend latter day or yazidism services? Never 09/22/2021 Do you belong to any clubs or organizations such as No 09/22/2021 latter day groups, unions, fraternal or athletic groups, or [...] place to sleep or slept in a alf (including now)? Education Answer Date Recorded What [...] / COVID-19? documented as of this encounter Miscellaneous Notes Telephone Encounter - Erica Farrell, GUEST SERVICES ASSISTANT FOUNDRY MANAGER - 10/28/2021 10:17 AM CDT Sent a [employer] message. See Result note Erica Farrell APRN CNP on 10/28/2021 at 10:18 AM Telephone Encounter - Jenni Mejía - 10/27/2021 4:31 PM CDT M [facility] Call Center Phone Message May a detailed message be left on voicemail: no Reason for Call: Other: Kim called to request ZioPatch results from 10/02/2021, please reach out toher at . Action Taken: Other: BRAVO Cardiology Travel Screening: Not Applicable documented in this encounter Plan of Treatment Upcoming Encounters Date Type Specialty Care Team Description 04/28/2022 Office Visit Family Practice Anthony Doe PA-C [address] [place] [address] (Wo rk) 05/03/2022 Office Visit Dermatology Neil Kent M D [address] [place], [place] [address] (Wo rk) 05/05/2022 Office Visit Optometry Yeny David, OD [address] [facility] [address] [place] [phone] (Wo rk) 05/11/2022 Virtual Visit Pharm D Diana Desir , [facility] [address] [place], [place] [address] (Wo rk) 05/14/2022 Office Visit Cardiology Livan Sharif MD [address] [facility] [place] , [facility] [address] [place], [place] [address] (Wo rk) 05/31/2022 Office Visit Family Practice Valery Veronica PA-C [address] [place], [place] [address] (Wo rk) documented as of this encounter Visit Diagnoses Not on filedocumented in this encounter Additional Health Concerns Assessment Noted Time PHQ-9 Depression Total Score: 2 04/02/2021 10:19 AM CD T documented as of this encounter Care Teams Rug Hooker Hand Relationship Specialty Start Date End Date Marija Edgar, PCP - General Nurse Practitioner 04/30/20 GUEST SERVICES ASSISTANT FOUNDRY MANAGER [address] [place], [place] [phone] Lita Oseguera Personal Advocate & 02/28/20 Liaison (PAL) Marija Edgar, Assigned PCP 06/08/20 GUEST SERVICES ASSISTANT FOUNDRY MANAGER [address] [place] [address] Mynor Broussard MD Assigned Surgical 06/01/20 11/28/[address] Provider [address] [place], [place] [address] Mauri, Melody Neuroscience 06/04/20 MD Keisha Provider [address] [place], [place] [address] Galo Burrell MD Assigned Heart and 10/05/20 04/02/[address] Vascular Provider [address] [place] [address] Diana Desir, Pharmacist Pharmacist 04/17/21 [facility] [address] [place] [address] Rain Galaviz Physician Welcome Wagon Host/Hostess Dermatology 04/28/21 ROVERTO Paredes [address] [facility] [address] [place] [address] Summer Lara MD Assigned OBGYN Provider 05/31/21 03/12/[address] [place], [place] [address] Tavia Wyatt MD Dermatology 07/14/21 Johnny Medrano Assigned Musculoskeletal 08/30/21 03/17/22 MD Ish Provider [address] [place] [address] Erica Farrell Nurse Practitioner Cardiovascular Disease 09/09/21 ARLENE Guidry FOUNDRY MANAGER [address] [facility] [address] [place] [address] documented as of this encounter
--- OUTSIDE RECORDS SUMMARY | 2022-04-28 01:08 | XMS_ITS | Encounter Summary ---
:2000 Author Organization [facility] Address [address] [place] [address] Care Team Providers Name Role Phone Lita Oseguera Unavailable Unavailable Marija Edgar APRN MEDICAID ANALYST Primary Care Provider [phone] Marija Edgar APRN MEDICAID ANALYST Unavailable Mynor Broussard MD Unavailable Keisha Dotson MD Unavailable Galo Burrell MD Unavailable Diana Desir [facility] Unavailable Rain Galaviz PA-C Unavailable [phone] Summer Lara MD Unavailable Tavia Wyatt MD Unavailable Unavailable Johnny Murillo MD Unavailable [phone] Erica Farrell APRN MEDICAID ANALYST Unavailable [phone] Reason for Visit Reason Comments Medication Therapy Management Encounter Details Date Type Department Care Team Description 10/14/2021 Virtual Visit [facility] Diana Desir, Anxi ety (Primary Dx); Clinic [facility] Moderate major depression (H) [address] [address] [phone] (Wo rk) Social History Tobacco Use Types [...] How often do you attend protestant or jehovah's witness services? Never 09/22/2021 Do you belong to [...] this encounter Patient Instructions Patient InstructionsWDiana nuñez, [facility] - 10/14/2021 3:00 PM CDT Recommendations from today's MTM visit: 1. Decrease sertraline to 100 mg daily. It was great to speak with you today. I value your experience and would be very thankful for your time with providing feedback on our clinic survey. You may receive a survey via email or text message in the next few days. To schedule another MTM appointment, please call the clinic directly or you may call the MTM scheduling line at [phone] or toll-free at . My Clinical Pharmacist's contact information: Please feel free to contact me with any questions or concerns you have. Diana Desir, PharmD Medication Therapy Management Provider, [facility] documented in this encounter Progress Notes Diana Desir RPH - 10/14/2021 3:00 PM CDT Medication Therapy Management (MTM) Encounter [...] to paroxetine and she will continue . She is still agreeable to switching to paroxetine today but due to anxiety, has not started paroxetine. Will continue to decrease sertraline dose closely together today and if able to decrease to sertraline 50 mg next week at f/up, then will start low dose paroxetine then. Will do a slow cross taper as I worry about her having worsened panic attacks and needing to increase lorazepam use if no cross taper at this time. Did discuss risks of serotonin syndrome and symptoms to monitor for. Okay for her to continue minimal use of lorazepam for now and benefits may outweigh risks with as relative dose is <5% (2.4-4.7%). Pharmacokinetic Gene Variants Gene Phenotype Notable Medications Impacted CYP2C9 Intermediate Metabolizer fluoxetine MTHFR Reduced Conversion Pharmacodynamic Gene Variants Gene Phenotype Notable Medications Impacted SLC6A4 Intermediate Response Sertraline and other SSRIs ADRA2A Moderately Reduced Response PLAN: 1. Decrease sertraline to 100 mg daily. If unable to decrease to 100 mg every day until next week, then may alternate 150 mg and 100 mg every other day. Follow-up: Return in about 1 week (around 10/21/2021) for Medication Therapy Management Pharmacist. SUBJECTIVE/OBJECTIVE: Kim Johnson is a 21 year old female called for a follow-up visit. Today's visit is a follow-up MTM visit from 09/30. Reason for visit: sertraline taper Tobacco: She reports that she quit smoking about 22 months ago. Her smoking use included other. She smoked 1.00 pack per day. She has never used smokeless tobacco. Alcohol: not currently using Medication Adherence/Access: no issues reported Anxiety/Depression: Current medications include: Sertraline 150 mg once daily (tapering off) and lorazepam 0.5 mg as needed (minimizing use, using more lately past 4 weeks d/t worsened anxiety, took today - did went 5 days with no lorazepam last week). Hasn't started paroxetine, nervous to. Wondering about when is best to start. Been on sertraline since high school, works okay but obessive about certain things. Anxiety similar to when on sertraline 200 mg/day she thinks but first week decreasing dose was worse. Overthinks a lot, worries a lot. More anxiety, not a very depressed person. Still 6 month old. Worried about more panic attacks - does have worsened anxiety when forgets asertraline dose. Lorazepam really helps. Following therapist and [...] 4 4 Today's Vitals: none I spent 14 minutes with this patient today. All changes were made via collaborative practice agreement with Marija Edgar APRN CNP. A copy of the visit note was provided to the patient's provider(s). The patient was sent via Phrax[employer] a summary of these recommendations. Diana Desir PharmD Medication Therapy Management Provider, [facility] Pager: [phone] Telemedicine Visit Details Type of service: Telephone visit Start Time: 3:05 PM End Time: 3:19 PM Originating Location (patient location): Home Distant Location (provider location): [facility] Medication Therapy Recommendations Anxiety Current Medication: sertraline (ZOLOFT) 100 MG tablet Rationale: Dose too high - Dosage too high - Safety Recommendation: Decrease Dose Status: Accepted per CPA documented in this encounter Plan of Treatment Upcoming Encounters Date Type Specialty Care Team Description 04/28/2022 Office Visit [facility] Anthony Doe, PA-C [address] [place], [place] [phone] (Jefferson rk) 05/03/2022 Office Visit Dermatology Neil Kent M D [address] [place] [phone] (Jefferson rk) 05/05/2022 Office Visit Optometry Yeny David, OD [address] [address] [place] [id number] (Jefferson rk) 05/11/2022 Virtual Visit Pharm D Diana Desir [facility] [address] [place], [place] [id number] (Jefferson carlson) 05/14/2022 Office Visit Cardiology Livan Sharif MD [address] [facility] [address] [place], [place] [address] (Wo rk) 05/31/2022 Office Visit Family [facility] JeremíasValery PA-C [address] [place] [address] (Wo rk) documented as of this encounter Visit Diagnoses Diagnosis Anxiety - Primary Anxiety state, unspecified Moderate major depression (H) Major depressive disorder, single episod e, moderate documented in this encounter Additional Health Concerns Assessment Noted Time PHQ-9 Depression Total Score: 2 04/02/2021 10:19 AM CD T documented as of this encounter Care Teams Cartoonist Special Effects Relationship Specialty Start Date End Date Marija Edgar, PCP - General Nurse Practitioner 04/30/20 INSULATION HOSEMAN MEDICAID ANALYST [address] [place] [address] Lita Oseguera Personal Advocate & 02/28/20 Liaison (PAL) Marija Edgar, Assigned PCP 06/08/20 [employer] MEDICAID ANALYST [address] [place] [address] Mynor Broussard MD Assigned Surgical 06/01/20 11/28/[address] Provider [address] [place], [place] [address] Mauri, Assigned Neuroscience 06/04/20 MD Keisha Provider [address] [place] [address] Galo Burrell MD Assigned Heart and 10/05/20 04/02/[address] Vascular Provider [address] [place] [address] Diana Desir, Pharmacist Pharmacist 04/17/21 [facility] [address] [place] [address] Rain Galaviz Physician Supervisor [place] Dermatology 04/28/21 ROVERTO Paredes [address] [facility] [address] [place] [address] Summer Lara MD Assigned OBGYN Provider 05/31/21 03/12/[address] [place], [place] [address] Tavia Wyatt MD Dermatology 07/14/21 Johnny Medrano Assigned Musculoskeletal 08/30/21 03/17/22 MD Ish Provider [address] [place], [place] [phone] Erica Farrell Nurse Practitioner Cardiovascular Disease 09/09/21 ARLENE Guidry MEDICAID ANALYST [address] [facility] [address] [place] [id number] documented as of this encounter
--- OUTSIDE RECORDS SUMMARY | 2022-04-28 01:08 | XMS_ITS | Encounter Summary ---
:2000 Author Organization [facility] Address [address] [place] [address] Care Team Providers Name Role Phone Lita Oseguera Unavailable Unavailable Marija Edgar APRN IN STORE MARKETING ASSOCIATE Primary Care Provider [phone] Marija Edgar APRN IN STORE MARKETING ASSOCIATE Unavailable Mynor Broussard MD Unavailable Keisha Dotson MD Unavailable Galo Burrell MD Unavailable Diana Desir [facility] Unavailable Rain Galaviz PA-C Unavailable [phone] Summer Lara MD Unavailable Tavia Wyatt MD Unavailable Unavailable Johnny Murillo MD Unavailable [phone] Erica Farrell APRN IN STORE MARKETING ASSOCIATE Unavailable [phone] Encounter Details Date Type Department Care Team Description 10/30/2021 Travel Social History Tobacco Use Types Packs/Day [...] How often do you attend judaism or tenriism services? Never 09/22/2021 Do you belong to [...] Office Visit Family Practice Anthony Doe PA-C [address] [place], [place] [phone] (Wo rk) 05/03/2022 Office Visit Dermatology Neil Kent M D [address] [place] [address] (Wo rk) 05/05/2022 Office Visit Optometry Yeny David, OD [address] [facility] [address] [place], [place] [phone] (Wo rk) 05/11/2022 Virtual Visit Pharm D Diana Desir , [facility] [address] [place] [address] (Wo rk) 05/14/2022 Office Visit Cardiology Livan Sharif MD [address], [address] [place], [place] [address] (Wo rk) 05/31/2022 Office Visit Family Practice Valery Veronica , PAUcheC [address] [place], [place] [address] (Wo rk) documented as of this encounter Visit Diagnoses Not on filedocumented in this encounter Additional Health Concerns Assessment Noted Time PHQ-9 Depression Total Score: 2 04/02/2021 10:19 AM CD T documented as of this encounter Care Teams Wound/Ostomy Nurse Relationship Specialty Start Date End Date Marija Edgar, PCP - General Nurse Practitioner 04/30/20 COLLAR STAY FUSER TENDER IN STORE MARKETING ASSOCIATE [address] [place] [address] Lita Oseguera Personal Advocate & 02/28/20 Liaison (PAL) Marija Edgar, Assigned PCP 06/08/20 COLLAR STAY FUSER TENDER IN STORE MARKETING ASSOCIATE [address] [place] [address] Mynor Broussard MD Assigned Surgical 06/01/20 11/28/21 [address] Provider [address] [place], [place] [address] Mauri, Assigned Neuroscience 06/04/20 MD Keisha Provider [address] [place], [place] [address] Galo Burrell MD Assigned Heart and 10/05/20 04/02/22 [address] Vascular Provider [address] [place] [id number] Diana Desir, Pharmacist Pharmacist 04/17/21 [facility] [address] [place], [place] [address] Rain Galaviz Physician Carbon Printer Dermatology 04/28/21 ROVERTO Paredes [address] [facility] [address] [place] [id number] Summer Lara MD Assigned OBGYN Provider 05/31/21 03/12/[address] [place], [place] [address] Tavia Wyatt MD Dermatology 07/14/21 Johnny Medrano Assigned Musculoskeletal 08/30/21 03/17/22 MD Ish Provider [address] [place], [place] [address] Erica Farrell Nurse Practitioner Cardiovascular Disease 09/09/21 ARLENE Guidry IN STORE MARKETING ASSOCIATE [address] [place] [id number] documented as of this encounter
--- OUTSIDE RECORDS SUMMARY | 2022-04-28 01:08 | XMS_ITS | Encounter Summary ---
:2000 Author Organization [facility] Address [address] [place] [address] Care Team Providers Name Role Phone Lita Oseguera Unavailable Unavailable Marija Edgar APRN APPRENTICE PAINTER HAND Primary Care Provider [phone] Marija Edgar APRN APPRENTICE PAINTER HAND Unavailable Mynor Broussard MD Unavailable Keisha Dotson MD Unavailable Galo Burrell MD Unavailable Diana Desir [facility] Unavailable Rain Galaviz PA-C Unavailable [phone] Summer Lara MD Unavailable Tavia Wyatt MD Unavailable Unavailable Johnny Murillo MD Unavailable [phone] Erica Farrell APRN APPRENTICE PAINTER HAND Unavailable [phone] Encounter Details Date Type Department Care Team Description 10/11/2021 Travel Social History Tobacco Use Types Packs/Day [...] often do you attend latter day or holiness services? Never 09/22/2021 Do you belong to [...] Office Visit Family Practice Anthony Doe PA-C [address] [place], [place] [phone] (Wo rk) 05/03/2022 Office Visit Dermatology Neil Kent M D [address] [place] [address] (Wo rk) 05/05/2022 Office Visit Optometry Yeny David OD [address] [facility] [place] [address] (Wo rk) 05/11/2022 Virtual Visit Pharm D Diana Desir , [facility] [address] [place] [address] (Wo rk) 05/14/2022 Office Visit Cardiology Livan Sharif MD [address] [place] [address] (Wo rk) 05/31/2022 Office Visit Family Practice Valery Veronica , PAUcheC [address] [place], [place] [address] (Wo rk) documented as of this encounter Visit Diagnoses Not on filedocumented in this encounter Additional Health Concerns Assessment Noted Time PHQ-9 Depression Total Score: 2 04/02/2021 10:19 AM CD T documented as of this encounter Care Teams Aircraft Cabin Cleaner Relationship Specialty Start Date End Date Mairja Edgar, PCP - General Nurse Practitioner 04/30/20 SANFORIZER APPRENTICE PAINTER HAND [address] [place] [address] Lita Oseguera Personal Advocate & 02/28/20 Liaison (PAL) Marija Edgar, Assigned PCP 06/08/20 SANFORIZER APPRENTICE PAINTER HAND [address] [place] [address] Mynor Broussard MD Assigned Surgical 06/01/20 11/28/21 [address] Provider [address] [place], [place] [address] Mauri, Melody Neuroscience 06/04/20 MD Keisha Provider [address] [place], [place] [address] Galo Burrell MD Assigned Heart and 10/05/20 04/02/[address] Vascular Provider [address] [place] [id number] Diana Deisr, Pharmacist Pharmacist 04/17/21 [facility] [address] [place], [place] [address] Rain Galaviz Physician Crankshaft Straightener Dermatology 04/28/21 ROVERTO Paredes [address] [facility] [address] [place] [phone] Summer Lara MD Assigned OBGYN Provider 05/31/21 03/12/[address] [place], [place] [address] Tavia Wyatt MD Dermatology 07/14/21 Johnny Medrano Assigned Musculoskeletal 08/30/21 03/17/22 MD Ish Provider [address] [place], [place] [phone] Erica Farrell Nurse Practitioner Cardiovascular Disease 09/09/21 ARLENE Guidry APPRENTICE PAINTER HAND [address] [place] [address] documented as of this encounter
--- OUTSIDE RECORDS SUMMARY | 2022-04-28 01:08 | XMS_ITS | Encounter Summary ---
:2000 Author Organization [facility] Address [address] [place] [address] Care Team Providers Name Role Phone Lita Oseguera Unavailable Unavailable Marija Edgar APRN STAMPING BENCH DIE MAKER Primary Care Provider [phone] Marija Edgar APRN STAMPING BENCH DIE MAKER Unavailable Mynor Broussard MD Unavailable Keisha Dotson MD Unavailable Galo Burrell MD Unavailable Diana Desir [facility] Unavailable Rain Galaviz PA-C Unavailable [phone] Summer Lara MD Unavailable Tavia Wyatt MD Unavailable Unavailable Johnny Murillo MD Unavailable [phone] Erica Farrell APRN STAMPING BENCH DIE MAKER Unavailable Reason for Visit Reason Comments Sick Phlemy cough, burning in her chest , chills, body aches, swollen neck glands x 2 days -- took some Tyenol - - HAD COVID end of JUL 2021 Encounter Details Date Type Department Care Team Description 10/30/2021 Office Visit [facility] Edwin Nguyen MD Viral URI with cough (Primary Dx); Urgent Care [facility] e [address] Throat pain [address] [place] [address] [phone] Social History Tobacco Use Types Packs/Day Years [...] week 09/22/2021 How often do you attend scientologist or temple services? Never 09/22/2021 Do you belong to any clubs or organizations such as No 09/22/2021 scientologist groups, unions, fraternal or athletic groups, or [...] Sign Reading Time Taken Comments Blood Pressure 118/64 10/30/2021 10:40 AM CDT Pulse 92 10/30/2021 10:40 AM CDT Temperature 36.9 ??C (98.5 ??F) 10/30/2021 10:40 AM CDT Respiratory Rate - - Oxygen Saturation 99% 10/30/2021 10:40 AM CDT Inhaled Oxygen Concentration - - Weight 83.5 kg (184 lb) 10/30/2021 10:40 AM CDT Height 167.6 cm (5' 6) 10/30/2021 10:40 AM CDT Body Mass Index 29.7 10/30/2021 10:40 AM CDT documented in this encounter Progress Notes Edwin Nguyen MD - 10/30/2021 10:40 AM CDT Assessment & Plan Viral URI with cough Acute problem x2 days. She is saturating well on room air without respiratory distress and nonfocal cardiopulmonary findings. Some of the chest pain she had after cough was likely due to acid reflux and esophageal irritation, I recommend she continues her omeprazole and will start Tessalon for cough control. Patient declined COVID testing, flu and strep are negative. At this time informed as its a virus, antibiotic therapy are currently not indicated however she not improving after a week, could consider antibiotic therapy then. - benzonatate (TESSALON) 100 MG capsule Dispense: 30 capsule; Refill: 0 - Influenza A/B antigen Throat pain Likely viral, negative rapid strep, additional management as per above. - Streptococcus A Rapid Scr w Reflx to PCR - Lab Collect - Streptococcus A Rapid Scr w Reflx to PCR - Lab Collect - Group A Streptococcus PCR Throat Swab Return in about 1 week (around 11/06/2021) for If symptoms do not improve or gets worse.. Edwin Nguyen MD [facility] Dario Alvarez is a 21 year old who presents for the following health issues HPI 2.5 days of 'little cough', feeling unwell, last night cough became productive and now becoming a burning in chest that radiates to the back. No fever, but took tylenol for comfort. History of SVT s/p recent ablation on 08/2021. Occurred with COVID earlier in the year Review of Systems Constitutional: Positive for fatigue. Negative for fever. Respiratory: Positive for cough. Objective BP 118/64 (BP Location: Right arm, Patient Position: Chair, Cuff Size: Adult Regular) Pulse 92 Temp 98.5 ??F (36.9 ??C) (Oral) Ht 1.676 m (5' 6) Wt 83.5 kg (184 lb) LMP 10/09/2021 (Approximate) SpO2 99% Yes BMI 29.70 kg/m?? Body mass index is 29.7 kg/m??. Physical Exam Vitals reviewed. Constitutional: General: She is not in acute distress. Appearance: She is ill-appearing. She is not toxic-appearing. HENT: Nose: No congestion or rhinorrhea. Cardiovascular: Rate and Rhythm: Normal rate and regular rhythm. Pulmonary: Effort: Pulmonary effort is normal. Breath sounds: Normal breath sounds. Neurological: Mental Status: She is alert. Results for orders placed or performed in visit on 10/30/21 (from the past 24 hour(s)) Influenza A/B antigen Specimen: Nose; Swab Result Value Ref Range Influenza A antigen Negative Negative Influenza B antigen Negative Negative Narrative Test results must be correlated with clinical data. If necessary, results should be confirmed by a molecular assay or viral culture. Streptococcus A Rapid Scr w Reflx to PCR - Lab Collect Specimen: Throat; Swab Result Value Ref Range Group A Strep antigen Negative Negative documented in this encounter Plan of Treatment Upcoming Encounters Date Type Specialty Care Team Description 04/28/2022 Office Visit Family Practice Anthony Doe PA-C [address] [place] [address] (Wo rk) 05/03/2022 Office Visit Dermatology Neil Kent M D [address] [place] [address] (Wo rk) 05/05/2022 Office Visit Optometry Yeny David, OD [address] [facility] [place] [phone] (Wo rk) 05/11/2022 Virtual Visit Pharm D Desir Diana Stanislav , [facility] [address] [place] [address] (Wo rk) 05/14/2022 Office Visit Cardiology Livan Sharif MD [address], [facility] [address] [place], [place] [address] (Wo rk) 05/31/2022 Office Visit Family Practice Valery Veronica PA-C [address] [place] [address] (Wo rk) documented as of this encounter Procedures Procedure Name Priority Date/Time Associated Comments Diagnosis STREPTOCOCCUS A RAPID Routine 10/30/2021 11:00 Throat pain Re sults for this SCREEN W REFELX TO PCR AM CDT proce dure are in the results section. GROUP A STREPTOCOCCUS Routine 10/30/2021 11:00 Throat pain Re sults for this PCR THROAT SWAB AM CDT procedure ar e in the results section. INFLUENZA A/B ANTIGEN Routine 10/30/2021 11:00 Viral URI with Results for this AM CDT cough procedure are i n the results section. documented in this encounter Results Group A Streptococcus PCR Throat Swab (10/30/2021 11:00 AM CDT) [facility] Method Time Signature Group A strep Not Detected Not Detected 10/30/2021 [facility] by PCR 8:11 PM CDT LABORATORY Specimen Anatomical Collection Method Collection Time Receive d Time (Source) Location / / Volume Laterality Swab STRUCTURE OF Non-blood 10/30/2021 11:00 10/30/2021 ANTERIOR PORTION Collection / AM CDT 11:35 AM CD T OF NECK / Unknown Unknown Narrative [facility] - 10/30/2021 8:11 PM C DT The Xpert Xpress Strep A test, performed on the [employer] (Management [employer] Data [employer])?? Instrument Systems, is a rapid, qualitative in [...] reaction (PCR) to detect Streptococcus pyogenes DNA. Edwin Nguyen MD LAB - MICRO GENERAL ORDERABL ES Performing Organization Address City/State/ZIP Code Phon e Number [facility] LABORATORY [facility] [place] [place] [address] Diag. Lab [address] [facility], Room [address] Streptococcus A Rapid Scr w Reflx to PCR - Lab Collect (10/30/2021 11:00 AM CDT) Analysis Performed At Patho logist Time Signature Group A Strep Negative Negative 10/30/2021 [facility] antigen 11:35 AM CDT Specimen Anatomical Collection Method Collection Time Receive d Time (Source) Location / / Volume Laterality Swab STRUCTURE OF Non-blood 10/30/2021 11:00 10/30/2021 ANTERIOR PORTION Collection / AM CDT 11:14 AM CD T OF NECK / Unknown Unknown Edwin Nguyen MD LAB - MICRO GENERAL ORDERABL ES Performing Organization Address City/State/ZIP Code Phon [place] [address] Lab [address] [facility] Lab (no room number, 1st floor of clinic) [place] [address], [facility] [address] [facility] Lab (no room number, 1st floor of clinic) Influenza A/B antigen (10/30/2021 11:00 AM CDT) Analysis Performed At Patho logist Time Signature Influenza A Negative Negative 10/30/2021 [facility] antigen 11:57 AM CDT Influenza B Negative Negative 10/30/2021 [facility] antigen 11:57 AM CDT Specimen Anatomical Collection Method Collection Time Receive d Time (Source) Location / / Volume Laterality Swab NASAL STRUCTURE / Non-blood 10/30/2021 11:00 2021 Unknown Collection / AM CDT 11:14 AM CDT Unknown Narrative [facility] - 10/30/2021 11:57 AM CDT Test results must be correlated with cli nical data. If necessary, results should be confirmed by a molecular assay or viral culture. Edwin Nguyen MD LAB - MICRO GENERAL ORDERABL ES Performing Organization Address City/State/ZIP Code Phon [place] Number [place] [phone] Lab [address] [facility] Lab (no room number, 1st floor of clinic) [place] [address], [facility] [address] [facility] Lab (no room number, 1st floor of clinic) documented in this encounter Visit Diagnoses Diagnosis Viral URI with cough - Primary Acute upper respiratory infections of un specified site Throat pain documented in this encounter Additional Health Concerns Assessment Noted Time PHQ-9 Depression Total Score: 2 04/02/2021 10:19 AM CD T documented as of this encounter Care Teams Farmhand Relationship Specialty Start Date End Date Marija Edgar, PCP - General Nurse Practitioner 04/30/20 DISASTER RECOVERY COORDINATOR STAMPING BENCH DIE MAKER [address] [place] [address] Lita Oseguera Personal Advocate & 02/28/20 Liaison (PAL) Marija Edgar, Assigned PCP 06/08/20 DISASTER RECOVERY COORDINATOR STAMPING BENCH DIE MAKER [address] [place] [address] Mynor Broussard MD Assigned Surgical 06/01/20 11/28/21 [address] Provider DANNI [address] [place], [place] [address] Mauri, Melody Neuroscience 06/04/20 MD Keisha Provider [address] [place], [place] [address] Galo Burrell MD Assigned Heart and 10/05/20 04/02/[address] Vascular Provider [address] [place] [address] Diana Desir, Pharmacist Pharmacist 04/17/21 [facility] [address] [place] [address] Rain Galaviz Physician Gas Fitter Helper Dermatology 04/28/21 ROVERTO Paredes [address] [facility] [address] [place] [facility] [place] [id number] Summer Lara MD Assigned OBGYN Provider 05/31/21 03/12/[address] [place], [place] [address] Tavia Wyatt MD Dermatology 07/14/21 Johnny Medrano Assigned Musculoskeletal 08/30/21 03/17/22 MD Ish Provider [address] [place], [place] [phone] Erica Farrell Nurse Practitioner Cardiovascular Disease 09/09/21 ARLENE Guidry STAMPING BENCH DIE MAKER [address] [place] [address] documented as of this encounter
--- OUTSIDE RECORDS SUMMARY | 2022-04-28 01:08 | XMS_ITS | Encounter Summary ---
:2000 Author Organization [facility] Address [address] [place] [address] Care Team Providers Name Role Phone Lita Oseguera Unavailable Unavailable Marija Edgar APRN CLIP BAKER Primary Care Provider [phone] Marija Edgar APRN CLIP BAKER Unavailable Mynor Broussard MD Unavailable Keisha Dotson MD Unavailable Galo Burrell MD Unavailable Diana Desir [facility] Unavailable Rain Galaviz PA-C Unavailable [phone] uSmmer Lara MD Unavailable Tavia Wyatt MD Unavailable Unavailable Johnny Murillo MD Unavailable [phone] Erica Farrell APRN CLIP BAKER Unavailable [phone] Reason for Visit Reason Comments Medication Therapy Management Encounter Details Date Type Department Care Team Description 09/30/[address] [facility] Diana Desir, Anxi ety (Primary Dx); Clinic [facility] Moderate major depression (H) [address] [address] [phone] (Wo rk) Social History Tobacco Use Types [...] often do you attend jehovah's witness or yazidism services? Never 09/22/2021 Do you [...] been in contact with No / Unsure 09/22/2021 2:25 PM CDT someone who was confirmed or suspected to have Coronavirus / COVID-19? documented as of this encounter Patient Instructions Patient InstructionsWDiana nuñez, [facility] - 09/30/2021 3:00 PM CDT Recommendations from today's MTM visit: 1. Decrease sertraline to 150 mg daily for a week then to 100 mg daily for 1-2 weeks. Will follow-upin 2 weeks for continued decrease in dose. 2. Start paroxetine 10 mg (1/2 tablet of 20 mg tablets that you have) daily if worsened panic attacks once on 100 mg of sertraline otherwise may wait to start once on 50 mg of sertraline. It was great to speak with you today. I value your experience and would be very thankful for your time with providing feedback on our clinic survey. You may receive a survey via email or text message in the next few days. To schedule another MTM appointment, please call the clinic directly or you may call the MTM scheduling line at [phone] or toll-free at . My Clinical Pharmacist's contact information: Please feel free to contact me with any questions or concerns you have. Diana Desir, Lorna Medication Therapy Management Provider, [facility] documented in this encounter Progress Notes Diana Desir RPH - 09/30/2021 3:00 PM CDT Medication Therapy Management (MTM) Encounter ASSESSMENT: Medication Adherence/Access: No issues identified Anxiety/Depression: Worsened - she would benefit from switching sertraline [...] to paroxetine and she will continue . If paroxetine ineffective, will then switch to venlafaxine. Will do a slow cross taper as I worry about her having worsened panic attacks and needing to increase lorazepam use if no cross taper at this time. Okay for her to continue minimal use of lorazepam for now and benefits may outweigh risks with as relative dose is <5% (2.4-4.7%). Pharmacokinetic Gene Variants Gene Phenotype Notable Medications Impacted CYP2C9 Intermediate Metabolizer fluoxetine MTHFR Reduced Conversion Pharmacodynamic Gene Variants Gene Phenotype Notable Medications Impacted SLC6A4 Intermediate Response Sertraline and other SSRIs ADRA2A Moderately Reduced Response PLAN: 1. Decrease sertraline to 150 mg daily for a week then to 100 mg daily for 1-2 weeks. Will follow-upin 2 weeks for continued taper. 2. Start paroxetine 10 mg daily if worsened panic attacks once on 100 mg of sertraline otherwise maywait to start once on 50 mg of sertraline. Follow-up: Return in about 2 weeks (around 10/14/2021) for Medication Therapy Management Pharmacist. SUBJECTIVE/OBJECTIVE: Kim Johnson is a 21 year old female called for a follow-up visit. Today's visit is a follow-up MTM visit from 09/02. Reason for visit: worsened anxiety. Tobacco: She reports that she quit smoking about 21 months ago. Her smoking use included other. She smoked 1.00 pack per day. She has never used smokeless tobacco. Alcohol: not currently using Medication Adherence/Access: no issues reported Anxiety/Depression: Current medications include: Sertraline 200 mg once daily and lorazepam 0.5 mg as needed (minimizing use, using more lately past 2 weeks d/t worsened anxiety, took today and yesterday). Been on sertraline since high school, works okay but obessive about certain things. Anxiety worsened lately. Overthinks a lot, worries a lot. More anxiety, not a very depressed person. Still 6 month old. Worried about more panic attacks - does have worsened anxiety when forgets asertraline dose. Lorazepam really helps, wonders about safety data with . Following therapist (meeting with her twice this week) and did see psychiatrist. Past med trial: [...] Total Score 14 4 4 Today's Vitals: There were no vitals taken for this visit. I spent 30 minutes with this patient today. All changes were made via collaborative practice agreement with Marija Edgar APRN CNP. A copy of the visit note was provided to the patient's provider(s). The patient was sent via [employer] a summary of these recommendations. Diana Desir PharmD Medication Therapy Management Provider, [facility] Pager: [phone] Telemedicine Visit Details Type of service: Telephone visit Start Time: 3:00 PM End Time: 3:30 PM Originating Location (patient location): Home Distant Location (provider location): [facility] Medication Therapy Recommendations Anxiety Current Medication: sertraline (ZOLOFT) 100 MG tablet Rationale: Condition refractory to medication - Ineffective medication - Effectiveness Recommendation: Change Medication - PARoxetine 20 MG tablet Status: Accepted per CPA documented in this encounter Plan of Treatment Upcoming Encounters Date Type Specialty Care Team Description 04/28/2022 Office Visit Family Practice Anthony Doe PA-C [address] [place], [place] [phone] (Jefferson carlson) 05/03/2022 Office Visit Dermatology Neil Kent M D [address] [place], [place] [address] (Jefferson carlson) 05/05/2022 Office Visit Optometry Yeny David, OD [address] [facility] [address] [place] [phone] (Wo rk) 05/11/2022 Virtual Visit Pharm D Diana Desir [facility] [address] [place], [place] [phone] (Jefferson carlson) 05/14/2022 Office Visit Cardiology Livan Sharif MD [address] [facility] [address] [place], [place] [address] (Wo rk) 05/31/2022 Office Visit Family Practice Valery Veronica PA-C [address] [place], [place] [address] (Wo rk) documented as of this encounter Visit Diagnoses Diagnosis Anxiety - Primary Anxiety state, unspecified Moderate major depression (H) Major depressive disorder, single episod e, moderate documented in this encounter Additional Health Concerns Assessment Noted Time PHQ-9 Depression Total Score: 2 04/02/2021 10:19 AM CD T documented as of this encounter Care Teams Window Glass Installer Relationship Specialty Start Date End Date Marija Edgar, PCP - General Nurse Practitioner 04/30/20 TUBE CLEANING OPERATOR CLIP BAKER [address] [place], [place] [phone] Lita Oseguera Personal Advocate & 02/28/20 Liaison (PAL) Marija Edgar, Assigned PCP 06/08/20 TUBE CLEANING OPERATOR CLIP BAKER [address] [place] [address] Mynor Broussard MD Assigned Surgical 06/01/20 11/28/21 [address] Provider [address] [place] [address] Mauri, Assigned Neuroscience 06/04/20 MD Keisha Provider [address] [place] [address] Galo Burrell MD Assigned Heart and 10/05/20 04/02/22 [address] Vascular Provider [address] [place] [address] Diana Desir, Pharmacist Pharmacist 04/17/21 [facility] [address] [place] [address] Ruhland, Rain Physician Band Sawmill Operator Dermatology 04/28/21 ROVERTO Paredes [address] [facility] [place] [id number] Summer Lara MD Assigned OBGYN Provider 05/31/21 03/12/[address] [place] [address] Tavia Wyatt MD Dermatology 07/14/21 Johnny Medrano Assigned Musculoskeletal 08/30/21 03/17/22 MD Ish Provider [address] [place] [address] Erica Farrell Nurse Practitioner Cardiovascular Disease 09/09/21 ARLENE Guidry CLIP BAKER [address] [facility] [address] [place] [id number] documented as of this encounter
--- OUTSIDE RECORDS SUMMARY | 2022-04-28 01:08 | XMS_ITS | Encounter Summary ---
:2000 Author Organization [facility] Address [address] [place] [address] Care Team Providers Name Role Phone Lita Oseguera Unavailable Unavailable Marija Edgar APRN PRICE CLERK Primary Care Provider [phone] Marija Edgar APRN PRICE CLERK Unavailable Mynor Broussard MD Unavailable Keisha Dotson MD Unavailable Galo Burrell MD Unavailable Diana Desir [facility] Unavailable Rain Galaviz PA-C Unavailable [phone] Summer Lara MD Unavailable Tavia Wyatt MD Unavailable Unavailable Johnny Murillo MD Unavailable [phone] Erica Farrell APRN PRICE CLERK Unavailable Reason for Referral Diagnostic Imaging MRI (Routine) - Closed Specialty Diagnoses / Procedures Referred By Contact Refer red To Contact Diagnoses Neck pain Left arm weakness Ebony Leach, ROVERTO Procedures MRI Cervical spine w/o contrast [address] [place], [place] [address] Referral ID Status Reason Start Date Expiration Date Visits Requ ested Visits Authorized [id number] Closed 08/27/2021 08/27/2022 1 1 Reason for Visit Diagnostic Imaging MRI (Routine) - Closed Specialty Diagnoses / Procedures Referred By Contact Refer red To Contact Diagnoses Neck pain Left arm weakness Ebony Leach PA-C Procedures MRI Cervical spine w/o contrast [address] [place], [place] [address] Referral ID Status Reason Start Date Expiration Date Visits Requ ested Visits Authorized [id number] Closed 08/27/2021 08/27/2022 1 1 Encounter Details Date Type Department Care Team Description 11/12/2021 Hospital Encounter [facility] Ebony Leach, Neck pain; [facility] ROVERTO Left arm weakness [id number] [facility] [address] [place] [address] [phone] Social History Tobacco Use Types Packs/Day Years [...] How often do you attend protestant or taoism services? Never 09/22/2021 Do you [...] place to sleep or slept in a chcf (including now)? Education Answer Date Recorded What [...] MG mg) by mouth 3 times capsuleIndications: daily as needed for Viral URI with cough cough fluocinonide (LIDEX) Apply small amount 60 mL 022 0.05 % external to psoriasis on the solutionIndications: scalp. Psoriasis omeprazole (PRILOSEC) 40 Take 1 capsule ([address] mg) by mouth daily capsuleIndications: Epigastric pain Vit-Fe Take 1 tablet by 90 tablet 3 06/04/2020 Fumarate-FA ( mouth daily MULTIVITAMIN W/IRON) 27-0.8 MG tablet tacrolimus (PROTOPIC) Apply thin layer to 60 g 08/11 0.1 % external psoriasis on thinner ointmentIndications: skin up to twice Psoriasis daily as needed. levETIRAcetam (KEPPRA) Take 1 tablet (500 90 tablet 1 02/2412/03/2021 500 MG mg) by mouth daily tabletIndications: Convulsions, unspecified convulsion type (H) PARoxetine (PAXIL) 20 MG Take 0.5 tablets (10 30 tablet 1 0 09/02/2021 12/14/2021 tabletIndications: mg) by mouth every Anxiety morning for 7 days, THEN 1 tablet (20 mg) every morning. sertraline (ZOLOFT) 100 Take 1 tablet (100 30 tablet 0 10/1011/30/2021 MG tabletIndications: mg) by mouth daily Moderate major depression (H) documented as of this encounter Plan of Treatment Upcoming Encounters Date Type Specialty Care Team Description 04/28/2022 Office Visit Family Practice Anthony Doe, PAUcheC [address] [place] [address] (Wo rk) 05/03/2022 Office Visit Dermatology Neil Kent M D [address] [place] [address] (Wo rk) 05/05/2022 Office Visit Optometry Yeny David, OD [address] [facility] [address] [place] [phone] (Wo rk) 05/11/2022 Virtual Visit Pharm D Diana Desir , [facility] [address] [place], [place] [address] (Wo rk) 05/14/2022 Office Visit Cardiology Livan Sharif MD [address] [facility] [address] [place], [place] [phone] (Wo rk) 05/31/[address] [facility] Valery Veronica , PAUcheC [address] [place] [address] (Wo rk) documented as of this encounter Procedures Procedure Name Priority Date/Time Associated Diagnosis Comme nts MR CERVICAL SPINE Routine 11/12/2021 6:38 PM Neck pain Results for this W/O CONTRAST CDT Left arm weakness procedure are in the results section. documented in this encounter Results MRI Cervical spine w/o contrast (11/12/2021 6:38 PM CDT) Anatomical Region Laterality Modality Spine, SUBRAD MR NEURO, UMP MR SPINE, RAD MR Magnetic Resonance Specimen (Source) Anatomical Collection Method Collection Time Re ceived Time Location / / Volume Laterality 11/12/2021 5:50 PM CDT Impressions 11/14/2021 9:00 PM CDT IMPRESSION: 1. ??Minor degenerative changes, without high-grade spinal canal or neural foraminal narrowing. Narrative 11/14/2021 9:00 PM CDT EXAM: MR CERVICAL SPINE W/O CONTRAST LOCATION: [facility] DATE/TIME: 11/12/2021 5:50 PM INDICATION: Left upper extremity tinglin g, numbness, and weakness. Neck pain [M54.2 (ICD-10-CM)]; Left arm weakness [R29.898 (ICD-10-CM) COMPARISON: 08/03/2021, 08/27/2021 TECHNIQUE: MRI Cervical Spine without IV contrast. FINDINGS: Normal alignment. Vertebral body heights are preserved. Redemonstrated densely sclerotic lesion in the C4 vertebral body without STIR hyperintensity, most suggestive of a bone island. No abnormal cord signal. No extraspinal abnormality. Craniovertebral junction and C1-C2: Norm al. C2-C3: Normal disc height. No herniation . Normal facets. No spinal canal or neural foraminal stenosis. C3-C4: Normal disc height. No herniation . Normal facets. No spinal canal or neural foraminal stenosis. C4-C5: Shallow disc bulge. Asymmetric ri ght-sided uncovertebral hypertrophy. Mild narrowing of the right neural foramen. No spinal canal stenosis or narrowing of the left neural foramen. C5-C6: Shallow disc bulge. No spinal can al or neural foraminal narrowing. C6-C7: Shallow disc bulge. No spinal can al or neural foraminal narrowing. C7-T1: Normal disc height. No herniation . Normal facets. No spinal canal or neural foraminal stenosis. Procedure Note Sabrina Awan MD - 11/15/19 22 EXAM: MR CERVICAL SPINE W/O CONTRAST LOCATION: [facility] DATE/TIME: 11/12/2021 5:50 PM INDICATION: Left upper extremity tinglin g, numbness, and weakness. Neck pain [M54.2 (ICD-10-CM)]; Left arm weakness [R29.898 (ICD-10-CM) COMPARISON: 08/03/2021, 08/27/2021 TECHNIQUE: MRI Cervical Spine without IV contrast. FINDINGS: Normal alignment. Vertebral body heights are preserved. Redemonstrated densely sclerotic lesion in the C4 vertebral body without STIR hyperintensity, most suggestive of a bone island. No abnormal cord signal. No extraspinal abnormality. Craniovertebral junction and C1-C2: Norm al. C2-C3: Normal disc height. No herniation . Normal facets. No spinal canal or neural foraminal stenosis. C3-C4: Normal disc height. No herniation . Normal facets. No spinal canal or neural foraminal stenosis. C4-C5: Shallow disc bulge. Asymmetric ri ght-sided uncovertebral hypertrophy. Mild narrowing of the right neural foramen. No spinal canal stenosis or narrowing of the left neural foramen. C5-C6: Shallow disc bulge. No spinal can al or neural foraminal narrowing. C6-C7: Shallow disc bulge. No spinal can al or neural foraminal narrowing. C7-T1: Normal disc height. No herniation . Normal facets. No spinal canal or neural foraminal stenosis. IMPRESSION: 1. Minor degenerative changes, without h igh-grade spinal canal or neural foraminal narrowing. Ebony Leach PA-C [facility] MRI ORDERABLES documented in this encounter Visit Diagnoses Diagnosis Neck pain Cervicalgia Left arm weakness Other musculoskeletal symptoms referable to limbs documented in this encounter Additional Health Concerns Assessment Noted Time PHQ-9 Depression Total Score: 2 04/02/2021 10:19 AM CD T documented as of this encounter Care Teams Servicer [employer] Machines Relationship Specialty Start Date End Date Marija Edgar, PCP - General Nurse Practitioner 04/30/20 PRODUCTION DISPATCHER PRICE CLERK [address] [place] [address] Lita Oseguera Personal Advocate & 02/28/20 Liaison (PAL) Marija Edgar, Assigned PCP 06/08/20 PRODUCTION DISPATCHER PRICE CLERK [address] [place] [address] Mynor Broussard MD Assigned Surgical 06/01/20 11/28/[address] Provider [address] [place] [address] Mauri, Assigned Neuroscience 06/04/20 MD Keisha Provider [address] [place], [place] [address] Galo Burrell MD Assigned Heart and 10/05/20 04/02/22 [address] Vascular Provider [address] [place] [phone] Diana Desir, Pharmacist Pharmacist 04/17/21 [facility] [address] [place], [place] [address] Rain Galaviz Physician Supervisor Chlorine Liquefaction Dermatology 04/28/21 ROVERTO Paredes [address] [facility] [address] [place] [id number] Summer Lara MD Assigned OBGYN Provider 05/31/21 03/12/[address] [place], [place] [address] Tavia Wyatt MD Dermatology 07/14/21 Johnny Medrano Assigned Musculoskeletal 08/30/21 03/17/22 MD Ish Provider [address] [place], [place] [address] Erica Farrell Nurse Practitioner Cardiovascular Disease 09/09/21 ARLENE Guidry PRICE CLERK [address] [place] [id number] documented as of this encounter
--- OUTSIDE RECORDS SUMMARY | 2022-04-28 01:08 | XMS_ITS | Encounter Summary ---
:2000 Author Organization [facility] Address [address] [place] [address] Care Team Providers Name Role Phone Lita Oseguera Unavailable Unavailable Marija Edgar APRN PARTS DESIGNER Primary Care Provider [phone] Marija Edgar APRN PARTS DESIGNER Unavailable Mynor Broussard MD Unavailable Keisha Dotson MD Unavailable Galo Burrell MD Unavailable Diana Desir [facility] Unavailable Rain Galaviz PA-C Unavailable [phone] Summer Lara MD Unavailable Tavia Wyatt MD Unavailable Unavailable Johnny Murillo MD Unavailable [phone] Erica Farrell HEEL BOOM OPERATOR PARTS DESIGNER Unavailable Reason for Referral CV Testing (Routine) - Closed Specialty Diagnoses / Procedures Referred By Contact Refer red To Contact Diagnoses SVT (supraventricular tachycardia) (H) Erica Farrell, Procedures Leadless national park tour guide 8 to 14 Days ZZHC EXT ECG > 48HR TO 21 DAY RCRD W/CONECT INTL RCRD ZZC EXT ECG > 48HR TO 21 DAY REVIEW AND INTERPRETATN AR EXT ECG > 48HR TO 21 DAY RCRD W/CONECT INTL RCRD HEEL BOOM OPERATOR PARTS DESIGNER AR EXT ECG > 48HR TO 21 DAY REVIEW AND INTERPRETATN HC EXT ECG > 48HR TO 21 DAY RCRD W/CONECT INTL RCRD [address] [place] [address] Referral ID Status Reason Start Date Expiration Date Visits Requ ested Visits Authorized [id number] Closed 09/22/2021 09/22/2022 1 1 Reason for Visit CV Testing (Routine) - Closed Specialty Diagnoses / Procedures Referred By Contact Refer red To Contact Diagnoses SVT (supraventricular tachycardia) (H) Erica Farrell, Kartik Leadless national park tour guide 8 to 14 Days ZZHC EXT ECG > 48HR TO 21 DAY RCRD W/CONECT INTL RCRD ZZC EXT ECG > 48HR TO 21 DAY REVIEW AND INTERPRETATN AR EXT ECG > 48HR TO 21 DAY RCRD W/CONECT INTL RCRD HEEL BOOM OPERATOR PARTS DESIGNER AR EXT ECG > 48HR TO 21 DAY REVIEW AND INTERPRETATN HC EXT ECG > 48HR TO 21 DAY RCRD W/CONECT INTL RCRD [address] [place] [address] Referral ID Status Reason Start Date Expiration Date Visits Requ ested Visits Authorized [id number] Closed 09/22/2021 09/22/2022 1 1 Encounter Details Date Type Department Care Team Description 10/02/2021 Hospital Encounter [facility] Erica Farrell [facility] ARLENE Guidry (supraven tricular Heart Care PARTS DESIGNER tachycardia) (H) [address] [facility] [address] [facility] [address] [place], [place] [phone] Social History Tobacco Use Types Packs/Day Years [...] week 09/22/2021 How often do you attend yarsanism or judaism services? Never 09/22/2021 Do you belong to any clubs or organizations such as No 09/22/2021 yarsanism groups, unions, fraternal or athletic groups, or [...] / COVID-19? documented as of this encounter Medications at Time of Discharge Medication Sig Dispensed Refills Start Date End Date augmented betamethasone Apply up to twice 150 g 08/11 dipropionate daily as needed for (DIPROLENE-AF) 0.05 % psoriasis on thicker external areas of skin. ointmentIndications: Psoriasis fluocinonide (LIDEX) Apply small amount 60 mL 022 0.05 % external to psoriasis on the solutionIndications: scalp. Psoriasis omeprazole (PRILOSEC) 40 Take 1 capsule ([address] mg) by mouth daily capsuleIndications: Epigastric pain Vit-Fe Take 1 tablet by 90 tablet 3 06/04/2020 Fumarate-FA ( mouth daily MULTIVITAMIN W/IRON) 27-0.8 MG tablet tacrolimus (PROTOPIC) Apply thin layer to 60 g 11 08/11 0.1 % external psoriasis on thinner ointmentIndications: skin up to twice Psoriasis daily as needed. levETIRAcetam (KEPPRA) Take 1 tablet (500 90 tablet 1 02/2412/03/2021 500 MG mg) by mouth daily tabletIndications: Convulsions, unspecified convulsion type (H) LORazepam (ATIVAN) 0.5 Take 1 tablet (0.5 0 09/2210/30/2021 MG tablet mg) by mouth every 6 hours as needed for anxiety PARoxetine (PAXIL) 20 MG Take 0.5 tablets (10 30 tablet 1 0 09/02/2021 12/14/2021 tabletIndications: mg) by mouth every Anxiety morning for 7 days, THEN 1 tablet (20 mg) every morning. sertraline (ZOLOFT) 100 Take 2 tablets (200 180 tablet 1 10/30/2021 MG tabletIndications: mg) by mouth daily Anxiety documented as of this encounter Progress Notes Khushbu Head - 10/02/2021 1:39 PM CDT Ziopatch was applied for 14 days. Written and verbal instructions were given. documented in this encounter Plan of Treatment Upcoming Encounters Date Type Specialty Care Team Description 04/28/2022 Office Visit Family Practice Anthony Doe, ROVERTO [address] [place] [address] (Wo rk) 05/03/2022 Office Visit Dermatology Neil Kent M D [address] [place] [address] (Wo rk) 05/05/2022 Office Visit Optometry Yeny David, OD [address] [facility] [address] [place] [phone] (Wo rk) 05/11/2022 Virtual Visit Pharm D Diana Desir , [facility] [address] [place], [place] [phone] (Wo rk) 05/14/2022 Office Visit Cardiology Livan Sharif MD [address] [place], [place] [address] (Wo rk) 05/31/2022 Office Visit Family Practice Valery Veronica PA-C [address] [place], [place] [address] (Wo rk) documented as of this encounter Procedures Procedure Name Priority Date/Time Associated Comments Diagnosis LEADLESS WILDLIFE REFUGE SPECIALIST Routine 10/02/2021 1:39 PM SVT R esults for this APPLICATION AND CDT (supraventricular procedu re are in INTERP 8 TO 14 DAYS tachycardia) (H) the results section. documented in this encounter Results LEADLESS WILDLIFE REFUGE SPECIALIST APPLICATION AND INTERP 8 TO 14 DAYS (10/02/2021 1:39 PM CDT) Anatomical Region Laterality Modality Other Specimen (Source) Anatomical Location Collection Method / Collectio n Time Received Time / Laterality Volume Narrative This result has an attachment that is no t available. Erica Farrell HEEL BOOM OPERATOR PARTS DESIGNER CV CARDIAC SERVICES ORDERABLES documented in this encounter Visit Diagnoses Diagnosis SVT (supraventricular tachycardia) (H) Other specified cardiac dysrhythmias documented in this encounter Additional Health Concerns Assessment Noted Time PHQ-9 Depression Total Score: 2 04/02/2021 10:19 AM CD T documented as of this encounter Care Teams Rock Crusher Relationship Specialty Start Date End Date Marija Edgar, LULY - General Nurse Practitioner 04/30/20 HEEL BOOM OPERATOR PARTS DESIGNER [address] [place], [place] [phone] Lita Oseguera Personal Advocate & 02/28/20 Liaison (PAL) Marija Edgar, Assigned PCP 06/08/20 HEEL BOOM OPERATOR PARTS DESIGNER [address] [place], [place] [phone] Mynor Broussard MD Assigned Surgical 06/01/20 11/28/[address] Provider [address] [place], [place] [phone] Mauri, Assigned Neuroscience 06/04/20 MD Keisha Provider [address] [place], [place] [address] Galo Burrell MD Assigned Heart and 10/05/20 04/02/22 [address] [facility] [address] Vascular Provider [address] [place] [address] Diana Desir, Pharmacist Pharmacist 04/17/21 [facility] [address] [place], [place] [address] Rain Galaviz Physician Gauge Inspector Dermatology 04/28/21 ROVERTO Paredes [address] [facility] [address] [place], [place] [phone] Summer Lara MD Assigned OBGYN Provider 05/31/21 03/12/22 [address] [place], [place] [phone] Tavia Wyatt MD Dermatology 07/14/21 Johnny Medrano Assigned Musculoskeletal 08/30/21 03/17/22 MD Ish Provider [address] [place], [place] [phone] Erica Farrell Nurse Practitioner Cardiovascular Disease 09/09/21 ARLENE Guidry PARTS DESIGNER [address] [place] [address] documented as of this encounter
--- OUTSIDE RECORDS SUMMARY | 2022-04-28 01:08 | XMS_ITS | Encounter Summary ---
:2000 Author Organization [facility] Address [address] [place] [address] Care Team Providers Name Role Phone Lita Oseguera Unavailable Unavailable Marija Edgar APRN CISCO UNIFIED COMMUNICATIONS ENGINEER Primary Care Provider [phone] Marija Edgar APRN CISCO UNIFIED COMMUNICATIONS ENGINEER Unavailable Mynor Broussard MD Unavailable Keisha Dotson MD Unavailable Galo Burrell MD Unavailable Diana Desir [facility] Unavailable Rain Galaviz PA-C Unavailable [phone] Summer Lara MD Unavailable Tavia Wyatt MD Unavailable Unavailable Johnny Murillo MD Unavailable [phone] Erica Farrell APRN CISCO UNIFIED COMMUNICATIONS ENGINEER Unavailable [phone] Reason for Visit Reason Comments Medication Therapy Management Encounter Details Date Type Department Care Team Description 11/13/2021 Virtual Visit [facility] Diana Desir, Anxi ety (Primary Dx); Clinic [facility] Moderate major depression (H) [address] [address] [phone] (Wo rk) Social History Tobacco Use Types [...] week 09/22/2021 How often do you attend scientology or yarsani services? Never 09/22/2021 Do you belong to any clubs or organizations such as No 09/22/2021 scientology groups, unions, fraternal or athletic groups, or [...] this encounter Patient Instructions Patient InstructionsWDiana nuñez, [facility] - 11/13/2021 9:53 AM CDT Recommendations from today's MTM visit: 1. Decrease sertraline to 50 mg daily in the morning and start paroxetine 10 mg daily at bedtime. Will plan on doing this for 2 weeks and then will continue to taper off sertraline to 25 mg daily. It was great speaking with you today. I value your experience and would be very thankful for your time in providing feedback in our clinic survey. In the next few days, you may receive an email or textmessage from [employer] with a link to a survey related to your ???clinical pharmacist. To schedule another MTM appointment, please call the clinic directly or you may call the MTM scheduling line at [phone] or toll-free at . My Clinical Pharmacist's contact information: Please feel free to contact me with any questions or concerns you have. Diana Desir, PharmD Medication Therapy Management Provider, [facility] documented in this encounter Progress Notes Diana Desir RPH - 11/13/2021 9:30 AM CDT Medication Therapy Management (MTM) Encounter [...] to decrease sertraline dose closely together and start low dose paroxetine. Will do a slow cross taper as I worry about her having worsened panic attacks and needing to increase lorazepam use if no cross taper at this time. Did discuss risks of serotonin syndrome and symptomsto monitor for. Okay for her to continue [...] Reduced Response PLAN: 1. Decrease sertraline to 50 mg daily in the morning and start paroxetine 10 mg daily at bedtime. Will plan on doing this for 2 weeks and then will continue to taper off sertraline to 25 mg daily. Follow-up: Return in about 2 weeks (around 11/27/2021) for Medication Therapy Management Pharmacist. SUBJECTIVE/OBJECTIVE: Kim Johnson is a 21 year old female called for a follow-up visit. Today's visit is a follow-up MTM visit from 10/20. Reason for visit: sertraline taper Tobacco: She reports that she quit smoking about 23 months ago. Her smoking use included other. She smoked 1.00 pack per day. She has never used smokeless tobacco. Alcohol: not currently using Medication Adherence/Access: no issues reported Anxiety/Depression: Current medications include: Sertraline 100 mg once daily (tapering off, anxietyon and off) and lorazepam 0.5 mg as needed (minimizing use, using more lately past week d/t worsenedanxiety, used twice past week). Hasn't started paroxetine, nervous to and down in the dumps lately still. Anxious to start a new medication. Been having a lot of dreams, more stress in life. Been on sertraline since high school, works okay but obessive about certain things. Anxiety similar to when on sertraline 150 mg/day she thinks but first week decreasing dose was worse. Overthinks a lot, worries a lot. Still 8 month old. Worried about more panic attacks - does have worsened anxiety when forgets a sertraline dose. Lorazepam really helps for panic. Following therapist [...] patient's provider(s). The patient was sent via [employer] a summary of these recommendations. Diana Desir PharmD Medication Therapy Management Provider, [facility] Pager: [phone] Telemedicine Visit Details Type of service: Telephone visit Start Time: 9:34 AM End Time: 9:44 AM Originating Location (patient location): Home Distant Location (provider location): [facility] Medication Therapy Recommendations KALYN (generalized anxiety disorder) Current Medication: sertraline (ZOLOFT) 100 MG tablet Rationale: Condition refractory to medication - Ineffective medication - Effectiveness Recommendation: Change Medication - PARoxetine 20 MG tablet Status: Accepted per CPA documented in this encounter Plan of Treatment Upcoming Encounters Date Type Specialty Care Team Description 04/28/2022 Office Visit Family Practice Anthony Doe PA-C [address] [place], [place] [id number] (Jefferson carlson) 05/03/2022 Office Visit Dermatology Neil Kent M D [address] [place], [place] [phone] (Jefferson carlson) 05/05/2022 Office Visit Optometry Yeny David, OD [address] [place] [phone] (Jefferson carlson) 05/11/2022 Virtual Visit Pharm D Diana Desir [facility] [address] [place], [place] [phone] (Jefferson carlson) 05/14/2022 Office Visit Cardiology Livan Sharif MD [address] , [address] [place] [address] (Wo rk) 05/31/2022 Office Visit Family Practice Valery Veronica PA-C [address] [place] [address] (Wo rk) documented as of this encounter Visit Diagnoses Diagnosis Anxiety - Primary Anxiety state, unspecified Moderate major depression (H) Major depressive disorder, single episod e, moderate documented in this encounter Additional Health Concerns Assessment Noted Time PHQ-9 Depression Total Score: 2 04/02/2021 10:19 AM CD T documented as of this encounter Care Teams Cost Manager Relationship Specialty Start Date End Date Marija Edgar, PCP - General Nurse Practitioner 04/30/20 CLAY PUDDLER CISCO UNIFIED COMMUNICATIONS ENGINEER [address] [place] [address] Lita Oseguera Personal Advocate & 02/28/20 Liaison (PAL) Marija Edgar, Assigned PCP 06/08/20 CLAY PUDDLER CISCO UNIFIED COMMUNICATIONS ENGINEER [address] [place] [address] Mynor Broussard MD Assigned Surgical 06/01/20 11/28/21 [address] Provider [address] [place] [address] Mauri, Assigned Neuroscience 06/04/20 MD Keisha Provider [address]09 [place] [address] Galo Burrell MD Assigned Heart and 10/05/20 04/02/22 [address] Vascular Provider [address] [place] [address] Diana Desir, Pharmacist Pharmacist 04/17/21 [facility] [address] [place] [address] Rain Galaviz Physician Food Trades Assistants Dermatology 04/28/21 ROVERTO Paredes [address] [facility] [place] [phone] Summer Lara MD Assigned OBGYN Provider 05/31/21 03/12/[address] [place] [address] Tavia Wyatt MD Dermatology 07/14/21 Johnny Medrano Assigned Musculoskeletal 08/30/21 03/17/22 MD Ish Provider [address] [place] [address] Erica Farrell Nurse Practitioner Cardiovascular Disease 09/09/21 ARLENE Guidry CISCO UNIFIED COMMUNICATIONS ENGINEER [address] [facility] [address] [place] [id number] documented as of this encounter
--- OUTSIDE RECORDS SUMMARY | 2022-04-28 01:08 | XMS_ITS | Encounter Summary ---
:2000 Author Organization [facility] Address [address] [place] [address] Care Team Providers Name Role Phone Lita Oseguera Unavailable Unavailable Marija Edgar APRN COUNSELOR/ART THERAPIST Primary Care Provider [phone] Marija Edgar APRN COUNSELOR/ART THERAPIST Unavailable Mynor Broussard MD Unavailable Keisha Dotson MD Unavailable Galo Burrell MD Unavailable Diana Desir [facility] Unavailable Rain Galaviz PA-C Unavailable [phone] Summer Lara MD Unavailable Tavia Wyatt MD Unavailable Unavailable Johnny Murillo MD Unavailable [phone] Erica Farrell APRN COUNSELOR/ART THERAPIST Unavailable [phone] Encounter Details Date Type Department Care Team Description 10/20/2021 Travel Social History Tobacco Use Types Packs/Day [...] week 09/22/2021 How often do you attend buddhist or rastafari services? Never 09/22/2021 Do you belong to any clubs or organizations such as No 09/22/2021 buddhist groups, unions, fraternal or athletic groups, or [...] Office Visit Family Practice Anthony Doe PA-C [address] [place], [place] [phone] (Wo rk) 05/03/2022 Office Visit Dermatology Neil Kent M D 500 [place] [address] (Wo rk) 05/05/2022 Office Visit Optometry Yeny David OD [address] [facility] [place] [address] (Wo rk) 05/11/2022 Virtual Visit Pharm D Diana Desir , [facility] [address] [place] [address] (Wo rk) 05/14/2022 Office Visit Cardiology Livan Sharif MD [address], [address] [place] [address] (Wo rk) 05/31/2022 Office Visit Family Practice Valery Veronica , PAUcheC [address] [place], [place] [address] (Wo rk) documented as of this encounter Visit Diagnoses Not on filedocumented in this encounter Additional Health Concerns Assessment Noted Time PHQ-9 Depression Total Score: 2 04/02/2021 10:19 AM CD T documented as of this encounter Care Teams Drum Builder Relationship Specialty Start Date End Date Marija Edgar, PCP - General Nurse Practitioner 04/30/20 FORMULA BOTTLER COUNSELOR/ART THERAPIST [address] [place] [address] Lita Oseguera Personal Advocate & 02/28/20 Liaison (PAL) Marija Edgar, Assigned PCP 06/08/20 FORMULA BOTTLER COUNSELOR/ART THERAPIST [address] [place] [address] Mynor Broussard MD Assigned Surgical 06/01/20 11/28/21 [address] Provider [address] [place], [place] [address] Mauri, Melody Neuroscience 06/04/20 MD Keisha Provider 9 [place], [place] [address] Galo Burrell MD Assigned Heart and 10/05/20 04/02/[address] Vascular Provider [address] [place] [address] Diana Desir, Pharmacist Pharmacist 04/17/21 [facility] [address] [place], [place] [address] Rain Galaviz Physician Co Director Dermatology 04/28/21 ROVERTO Paredes [address] [facility] [address] [place] [phone] Summer Lara MD Assigned OBGYN Provider 05/31/21 03/12/[address] [place], [place] [address] Tavia Wyatt MD Dermatology 07/14/21 Johnny Medrano Assigned Musculoskeletal 08/30/21 03/17/22 MD Ish Provider [address] [place], [place] [phone] Erica Farrell Nurse Practitioner Cardiovascular Disease 09/09/21 ARLENE Guidry COUNSELOR/ART THERAPIST [address] [place] [address] documented as of this encounter
--- OUTSIDE RECORDS SUMMARY | 2022-04-28 01:08 | XMS_ITS | Encounter Summary ---
:2000 Author Organization [facility] Address [address] [place] [address] Care Team Providers Name Role Phone Lita Oseguera Unavailable Unavailable Marija Edgar APRN TIE PRESSER Primary Care Provider [phone] Marija Edgar APRN TIE PRESSER Unavailable Mynor Broussard MD Unavailable Keisha Dotson MD Unavailable Galo Burrell MD Unavailable Diana Desir [facility] Unavailable Rain Galaviz PA-C Unavailable [phone] Summer Lara MD Unavailable Tavia Wyatt MD Unavailable Unavailable Johnny Murillo MD Unavailable [phone] Erica Farrell APRN TIE PRESSER Unavailable [phone] Encounter Details Date Type Department Care Team Description 11/13/2021 Travel Social History Tobacco Use Types Packs/Day [...] week 09/22/2021 How often do you attend sikhism or jew services? Never 09/22/2021 Do you belong to any clubs or organizations such as No 09/22/2021 sikhism groups, unions, fraternal or athletic groups, or [...] Office Visit Family Practice Anthony Doe PA-C [address] [place], [place] [phone] (Wo rk) 05/03/2022 Office Visit Dermatology Neil Kent M D [address] [place] [address] (Wo rk) 05/05/2022 Office Visit Optometry Yeny David, OD [address] [facility] [address] [place], [place] [phone] (Wo rk) 05/11/2022 Virtual Visit Pharm D Diana Desir , [facility] [address] [place] [address] (Wo rk) 05/14/2022 Office Visit Cardiology Livan Sharif MD [address], [address] [place], [place] [address] (Wo rk) 05/31/2022 Office Visit Family Practice Valery Veronica , PAUcheC [address] [place], [place] [address] (Wo rk) documented as of this encounter Visit Diagnoses Not on filedocumented in this encounter Additional Health Concerns Assessment Noted Time PHQ-9 Depression Total Score: 2 04/02/2021 10:19 AM CD T documented as of this encounter Care Teams Contact Center Consultant Relationship Specialty Start Date End Date Marija Edgar, PCP - General Nurse Practitioner 04/30/20 VP HUMAN RESOURCES TIE PRESSER [address] [place] [address] Lita Oseguera Personal Advocate & 02/28/20 Liaison (PAL) Marija Edgar, Assigned PCP 06/08/20 VP HUMAN RESOURCES TIE PRESSER [address] [place] [address] Mynor Broussard MD Assigned Surgical 06/01/20 11/28/21 [address] Provider [address] [place], [place] [address] Mauri, Assigned Neuroscience 06/04/20 MD Keisha Provider 9 [place], [place] [address] Galo Burrell MD Assigned Heart and 10/05/20 04/02/22 [address] Vascular Provider [address] [place] [address] Diana Desir, Pharmacist Pharmacist 04/17/21 [facility] [address] [place], [place] [address] Rain Galaviz Physician Drier Operator Dermatology 04/28/21 ROVERTO Paredes [address] [facility] [address] [place] [phone] Summer Lara MD Assigned OBGYN Provider 05/31/21 03/12/[address] [place], [place] [address] Tavia Wyatt MD Dermatology 07/14/21 Johnny Medrano Assigned Musculoskeletal 08/30/21 03/17/22 MD Ish Provider [address] [place], [place] [address] Erica Farrell Nurse Practitioner Cardiovascular Disease 09/09/21 ARLENE Guidry TIE PRESSER [address] [place] [address] documented as of this encounter
[2022-04-28 01:09] LABS: Blood Urea Nitrogen* 11 mg/dL (5-24); Calcium* 9.1 mg/dL (8.4-10.6); Carbon Dioxide* 25 mmol/L (20-32); Glucose* 110 mg/dL (60-115)
--- OUTSIDE RECORDS SUMMARY | 2022-04-28 01:09 | XMS_ITS | Encounter Summary ---
:2000 Author Organization [facility] Address [address] [place] [address]. [place] [address] Care Team Providers Name Role Phone Lita Oseguera Unavailable Unavailable Marija Edgar APRN MICROSOFT OFFICE INSTRUCTOR Primary Care Provider [phone] Marija Edgar APRN MICROSOFT OFFICE INSTRUCTOR Unavailable Mynor Broussard MD Unavailable Keisha Dotson MD Unavailable Galo Burrell MD Unavailable Diana Desir [facility] Unavailable Rain Galaviz PA-C Unavailable [phone] Summer Lara MD Unavailable Tavia Wyatt MD Unavailable Unavailable Johnny Murillo MD Unavailable [phone] Reason for Visit Reason Onset Date Comments Nurse Advice Line 09/02/2021 omeprazole Encounter Details Date Type Department Care Team Description 09/02/2021 [facility] Marija Edgar Nurse Advice Line [facility] ARLENE GRANADOS (omeprazole) [address] [place] [id number] [phone] Social History Tobacco Use Types Packs/Day Years [...] week 09/22/2021 How often do you attend adventist or adventist services? Never 09/22/2021 Do you belong to any clubs or organizations such as No 09/22/2021 adventist groups, unions, fraternal or athletic groups, or [...] been in contact with No / Unsure 08/28/2021 6:02 AM FOUNTAIN MANAGER someone who was confirmed or suspected to have Coronavirus / COVID-19? documented as of this encounter Miscellaneous Notes Telephone Encounter - Quinn Gaytan RN - 09/02/2021 10:08 AM CST Called and spoke with patient, relayed information that rx was sent to pharmacy. No further questions or concerns at this time. Quinn Stanton RN TAIN MANAGER Telephone Encounter - Marija Edgar APRN CNP - 09/02/2021 9:43 AM FOUNTAIN MANAGER Refilled. Thank you Marija Edgar APRN MICROSOFT OFFICE INSTRUCTOR on 09/02/2021 at 9:43 AM TAIN MANAGER Telephone Encounter - Natasha Luis RN - 09/02/2021 9:08 AM CST Pt calls, needs omeprazole refilled, had endoscopy and told to take indefinitely, routed to AG, please confirm/advise ongoing refills, inform pt when final, may LMOVM Natasha Luis RN, BSN [facility] TAIN MANAGER documented in this encounter Plan of Treatment Upcoming Encounters Date Type Specialty Care Team Description 04/28/2022 Office Visit Family Practice Anthony Doe, R[place]O [address] [place], [place] [phone] ([place]) 05/03/2022 Office Visit Dermatology Neil Kent M D [address] [place], [place] [phone] (Jefferson rk) 05/05/2022 Office Visit Optometry Yeny David, OD [address] [facility] [address] [place] [phone] (Wo rk) 05/11/2022 Virtual Visit Pharm D Diana Desir , [facility] [address] [place], [place] [phone] (Wo rk) 05/14/2022 Office Visit Cardiology Livan Sharif MD [address], [address] [place] [address] (Wo rk) 05/31/2022 Office Visit Family Practice Valery Veronica PA-C 9[address] [place] [address] (Wo rk) documented as of this encounter Visit Diagnoses Diagnosis Epigastric pain Abdominal pain, epigastric documented in this encounter Additional Health Concerns Assessment Noted Time PHQ-9 Depression Total Score: 2 04/02/2021 10:19 AM CD T documented as of this encounter Care Teams Electrical Manager Relationship Specialty Start Date End Date Marija Edgar, PCP - General Nurse Practitioner 04/30/20 LABORER GOLF COURSE MICROSOFT OFFICE INSTRUCTOR [address] [place] [address] Lita Oseguera Personal Advocate & 02/28/20 Liaison (PAL) Marija Edgar, Assigned PCP 06/08/20 LABORER GOLF COURSE MICROSOFT OFFICE INSTRUCTOR [address] [place] [address] Mynor Broussard MD Assigned Surgical Provider 06/01/20 [address] [place] [address] Mauri, Assigned Neuroscience 06/04/20 MD Keisha Provider 909 [place] [address] Galo Burrell MD Assigned Heart and 10/05/20 04/02/22 [address] Vascular Provider [address] [place] [address] Diana Desir, Pharmacist Pharmacist 04/17/21 [facility] [address] [place] [address] Rain Galaviz Physician Truck Washer Dermatology 04/28/21 ROVERTO Paredes [address] [facility] [address] [place] [facility] [place] [phone] Summer Lara MD Assigned OBGYN Provider 05/31/21 03/12/[address] [place] [address] Tavia Wyatt MD MD Dermatology 07/14/21 Johnny Murillo Assigned Musculoskeletal 08/30/21 03/17/22 MD Ish Provider [address] [place] [address] documented as of this encounter
--- OUTSIDE RECORDS SUMMARY | 2022-04-28 01:09 | XMS_ITS | Encounter Summary ---
:2000 Author Organization [facility] Address [address] [place] [address] Care Team Providers Name Role Phone Lita Oseguera Unavailable Unavailable Marija Edgar APRN GRINDER DRESSER Primary Care Provider [phone] Marija Edgar APRN GRINDER DRESSER Unavailable Mynor Broussard MD Unavailable Keisha Dotson MD Unavailable Galo Burrell MD Unavailable Diana Desir [facility] Unavailable Rain Galaviz PA-C Unavailable [phone] Summer Lara MD Unavailable Tavia Wyatt MD Unavailable Unavailable Johnny Murillo MD Unavailable [phone] Reason for Visit Reason Onset Date Comments Clinic Care Coordination - Follow-up 08/31/2021 pos t SVT Ablation Encounter Details Date Type Department Care Team Description 08/31/2021 Telephone [facility] Alexus Avalos C linic Care Coordination Clinic Dee RN - Follow-up (post SVT [address] Ablation) [facility] [address] [place] [address] Social History Tobacco Use Types Packs/Day [...] How often do you attend gnosticism or anabaptism services? Never 09/22/2021 Do you belong to [...] place to sleep or slept in a intermediate (including now)? Education Answer Date Recorded What is the highest level of school you have completed or 12 th grade 08/07/2020 the highest degree you have received? Sex Assigned at Date Recorded Female 03/02/2021 5:45 PM CDT COVID-19 Exposure Response Date Recorded In the last month, have you been in contact with No / Unsure 08/28/2021 6:02 AM DRIER OPERATOR HEAD someone who was confirmed or suspected to have Coronavirus / COVID-19? documented as of this encounter Miscellaneous Notes Telephone Encounter - Alexus Avalos RN - 08/31/2021 1:25 PM CST Spoke to pt who states that she is doing ok but states that she gets short of breath, pt states thather pulse oximetry reads 100%. Pt has no swelling or puffiness of her body. States that she occasionally has chest pain, back painand pain in her Left arm. Pt told that she can try a little ibuprofen for the pain to see if settle, pt told that it can take up to 3 months for the heart to heal and this should continue to get better. Pt notes that groin has a small ooze that is not blood and was yellow in color. Pt has anxiety and this could be causing her to think that she is short of breath, but did state that the pain if she has any can also cause her not to take deep breaths. Pt took a deep breath with no complaints. Pt noted her heart racing and skipping of beats. Reminded that the heart is irritated and inflamed and that she may have some elevated rates. Pt states that one was 140 bpm, but didnot last long. Discussed pt anxiety and that when she is feeling the rates that she just needs to remember that this can be normal. Pt told to call or MyChart with any issues or concerns. Pt states understanding. JNelsonRN R OPERATOR HEAD documented in this encounter Plan of Treatment Upcoming Encounters Date Type Specialty Care Team Description 04/28/2022 Office Visit Family Practice Anthony Doe, ROVERTO [address] [place] [address] ([place] al[place]) 05/03/2022 Office Visit Dermatology Neil Kent M D [address] [place], [place] [phone] (Jefferson carlson) 05/05/2022 Office Visit Optometry Yeny David, OD [address] [facility] [address] [place] [phone] (Wo rk) 05/11/2022 Virtual Visit Pharm Diana Eckert , [facility] [address] [place], [place] [address] (Wo aldo) 05/14/2022 Office Visit Cardiology Livan Sharif MD [address] [place] [address] (Wo rk) 05/31/2022 Office Visit Family Practice Valery Veronica PA-C [address] [place] [address] (Wo rk) documented as of this encounter Visit Diagnoses Not on filedocumented in this encounter Additional Health Concerns Assessment Noted Time PHQ-9 Depression Total Score: 2 04/02/2021 10:19 AM CD T documented as of this encounter Care Teams Room Worker Relationship Specialty Start Date End Date Marija Edgar, PCP - General Nurse Practitioner 04/30/20 SENIOR WATER RESOURCES ENGINEER GRINDER DRESSER [address] [place], [place] [phone] Lita Oseguera Personal Advocate & 02/28/20 Liaison (PAL) Marija Edgar, Assigned PCP 06/08/20 SENIOR WATER RESOURCES ENGINEER GRINDER DRESSER [address] [place] [address] Mynor Broussard MD Assigned Surgical Provider 06/01/20 [address] [place] [address] Mauri, Assigned Neuroscience 06/04/20 MD Keisha Provider 909 [place] [address] Galo Burrell MD Assigned Heart and 10/05/20 04/02/22 [address] Vascular Provider [address] [place] [address] Diana Desir, Pharmacist Pharmacist 04/17/21 [facility] [address] [place] [address] Rain Galaviz Physician Transmission Mechanic Dermatology 04/28/21 ROVERTO Paredes [address] [facility] [place] [address] Summer Lara MD Assigned OBGYN Provider 05/31/21 03/12/[address] [place] [address] Tavia Wyatt MD MD Dermatology 07/14/21 Johnny Murillo Assigned Musculoskeletal 08/30/21 03/17/22 MD Ish Provider [address] [place] [address] documented as of this encounter
--- OUTSIDE RECORDS SUMMARY | 2022-04-28 01:09 | XMS_ITS | Encounter Summary ---
:2000 Author Organization [facility] Address [address] [place] [address]. [place] [address] Care Team Providers Name Role Phone Lita Oseguera Unavailable Unavailable Marija Edgar APRN CORPORATE COMMUNICATIONS SPECIALIST Primary Care Provider [phone] Marija Edgar APRN CORPORATE COMMUNICATIONS SPECIALIST Unavailable Mynor Broussard MD Unavailable Keisha Dotson MD Unavailable Galo Burrell MD Unavailable Diana Desir [facility] Unavailable Rain Galaviz PA-C Unavailable [phone] Summer Lara MD Unavailable Tavia Wyatt MD Unavailable Unavailable Johnny Murillo MD Unavailable [phone] Erica Farrell [facility] CORPORATE COMMUNICATIONS SPECIALIST Unavailable Teresita Bean [facility] Unavailable [phone] Tavia Wyatt MD Unavailable Unavailable Reason for Visit Reason Onset Date Comments Panel Management 09/02/2021 Encounter Details Date Type Department Care Team Description 09/02/2021 [facility] Marija Edgar APRN Panel Management [address] [address] [phone] (Wo rk) Social History Tobacco Use Types [...] week 09/22/2021 How often do you attend synagogue or taoist services? Never 09/22/2021 Do you belong to any clubs or organizations such as No 09/22/2021 synagogue groups, unions, fraternal or athletic groups, or [...] this encounter Miscellaneous Notes Telephone Encounter - Debbie Hdez MA - 09/02/2021 10:29 AM CST Patient Quality Outreach Patient is due for the following: Physical NEXT STEPS: Schedule a yearly physical Type of outreach: Phone, spoke to patient/parent. pt states she will call back Questions for provider review: None Debbie Hdez MA Patient Quality Outreach Patient is due for the following: Asthma - ACT needed Depression - PHQ-9 Needed NEXT STEPS: Complete questionaiires Type of outreach: Sent Withings message. Next Steps: Reach out within 90 days via Phone. Max number of attempts reached: Yes. Will try again in 90 days if patient still on fail list. Questions for provider review: None Debbie Hdez MA documented in this encounter Plan of Treatment Upcoming Encounters Date Type Specialty Care Team Description 04/28/2022 Office Visit [facility] Anthony Doe, PA-C [address] [place], [place] [phone] (Wo rk) 05/03/2022 Office Visit Dermatology Neil Kent M D [address] [place] [address] (Wo rk) 05/05/2022 Office Visit Optometry Yeny David, OD [address] [place] [phone] (Wo rk) 05/11/2022 Virtual Visit Pharm D Diana Desir , [facility] [address] [place], [place] [address] (Wo rk) 05/14/2022 Office Visit Cardiology Livan Sharif MD [address] [facility] [address] [place], [place] [address] (Wo rk) 05/31/2022 Office Visit [facility] Valery Veronica , PA-C [address] [place] [address] (Wo rk) documented as of this encounter Visit Diagnoses Not on filedocumented in this encounter Additional Health Concerns Assessment Noted Time PHQ-9 Depression Total Score: 2 04/02/2021 10:19 AM CD T documented as of this encounter Care Teams Fish Bailer Relationship Specialty Start Date End Date Marija Edgar, PCP - General Nurse Practitioner 04/30/20 SPIN TABLE OPERATOR CORPORATE COMMUNICATIONS SPECIALIST [address] [place] [address] Lita Oseguera Personal Advocate & 02/28/20 Liaison (PAL) Marija Edgar, Assigned PCP 06/08/20 SPIN TABLE OPERATOR CORPORATE COMMUNICATIONS SPECIALIST [address] [place], [place] [phone] Mynor Broussard MD Assigned Surgical 06/01/20 11/28/21 [address] Provider [address]AN[address] [place] [address] Mauri, Assigned Neuroscience 06/04/20 MD Keisha Provider [address] [place] [address] Galo Burrell MD Assigned Heart and 10/05/20 04/02/22 [address] Vascular Provider [address] [place] [address] Diana Desir, Pharmacist Pharmacist 04/17/21 [facility] [address] [place], [place] [address] Rain Galaviz Physician Etl Informatica Developer Dermatology 04/28/21 ROVERTO Paredes [address] [facility] [address] [facility] [address] Summer Lara MD Assigned OBGYN Provider 05/31/21 03/12/[address] [place], [place] [address] Tavia Wyatt MD Dermatology 07/14/21 Johnny Medrano Assigned Musculoskeletal 08/30/21 03/17/22 MD Ish Provider [address] [place], [place] [phone] Erica Farrell Nurse Practitioner Cardiovascular Disease 09/09/21 ARLENE Guidry CORPORATE COMMUNICATIONS SPECIALIST [address] [facility] [address] [place] [address] Teresita Bean Pharmacist Pharmacist 09/24/21 09/29/21 Walter, [facility] [address] [facility] [place] [address] Tavia Wyatt, Assigned Surgical 11/29/21 Provider documented as of this encounter
--- OUTSIDE RECORDS SUMMARY | 2022-04-28 01:09 | XMS_ITS | Encounter Summary ---
:2000 Author Organization [facility] Address [address] [place] [address] Care Team Providers Name Role Phone Lita Oseguera Unavailable Unavailable Marija Edgar APRN BUSINESS CHANGE MANAGER Primary Care Provider [phone] Marija Edgar APRN BUSINESS CHANGE MANAGER Unavailable Mynor Broussard MD Unavailable Keisha Dotson MD Unavailable Galo Burrell MD Unavailable Diana Desir [facility] Unavailable Rain Galaviz PA-C Unavailable [phone] Summer Lara MD Unavailable Tavia Wyatt MD Unavailable Unavailable Johnny Murillo MD Unavailable [phone] Reason for Referral Mental Health Outpatient (Routine: Next available opening) - Pending Review Specialty Diagnoses / Procedures Referred By Contact Refer red To Contact Behavioral Health Diagnoses KALYN (generalized anxiety disorder) Marija Edgar APRN BUSINESS CHANGE MANAGER [address] [place], [place] [address] Referral ID Status Reason Start Date Expiration Date Visits V isits Requested Authorized [id number] Pending 09/04/2021 09/04/2022 1 1 Review RMATION MANAGEMENT SPECIALIST Reason for Visit Reason Onset Date Comments Referral 09/04/2021 mental health referr al Encounter Details Date Type Department Care Team Description 09/04/2021 Telephone [facility] Marija Edgar Referr al ([facility] ARLENE BUSINESS CHANGE MANAGER referral ) [address] [address] [phone] Social History Tobacco Use Types Packs/Day Years [...] week 09/22/2021 How often do you attend anglican or quaker services? Never 09/22/2021 Do you belong to any clubs or organizations such as No 09/22/2021 anglican groups, unions, fraternal or athletic groups, or [...] been in contact with No / Unsure 09/02/2021 12:26 PM INFORMATION MANAGEMENT SPECIALIST someone who was confirmed or suspected to have Coronavirus / COVID-19? documented as of this encounter Miscellaneous Notes Telephone Encounter - Libra Britt - 09/04/2021 1:41 PM CST Pt informed Libra Britt/Auto Mechanic Apprentice RMATION MANAGEMENT SPECIALIST Telephone Encounter - Marija Edgar APRN CNP - 09/04/2021 12:50 PM INFORMATION MANAGEMENT SPECIALIST Referral placed. Marija Edgar APRN CNP on 09/04/2021 at 12:50 PM RMATION MANAGEMENT SPECIALIST Telephone Encounter - Katerine Waggoner RN - 09/04/2021 12:10 PM CST Routing to PCP: The Pt called in requesting a mental health referral (anxiety). Once placed, the Pt would like a call with scheduling information. Katerine Waggoner RN [facility] -- Triage Nurse RMATION MANAGEMENT SPECIALIST documented in this encounter Plan of Treatment Upcoming Encounters Date Type Specialty Care Team Description 04/28/2022 Office Visit Family Practice Anthony Doe PA-C [address] [place], [place] [phone] (Wo rk) 05/03/2022 Office Visit Dermatology Neil Kent M D [address] [place], [place] [address] (Wo rk) 05/05/2022 Office Visit Optometry Yeny aDvid, OD [address] [facility] [place] [address] (Wo rk) 05/11/2022 Virtual Visit Pharm D Diana Desir , [facility] [address] [place] [address] (Wo rk) 05/14/2022 Office Visit Cardiology Livan Sharif MD [address], DANNI [address] [place], [place] [phone] (Wo rk) 05/31/2022 Office Visit Family Practice Valery Veronica , PA-C [address] [place], [place] [address] (Wo rk) Scheduled Referrals Name Type Priority Associated Diagnoses Order S chedule Adult Mental Health Referral Routine: Next KALYN (generalized Exp ected: Ready Mix Truck Driver Referral available opening anxiety disorder) 09/04/2021 (Approximate), Expires: 09/04/2022 documented as of this encounter Visit Diagnoses Diagnosis KALYN (generalized anxiety disorder) - Peyton diann Generalized anxiety disorder documented in this encounter Additional Health Concerns Assessment Noted Time PHQ-9 Depression Total Score: 2 04/02/2021 10:19 AM CD T documented as of this encounter Care Teams Cosmetician Apprentice Relationship Specialty Start Date End Date Marija Edgar, PCP - General Nurse Practitioner 04/30/20 PARAMEDICAL AIDE BUSINESS CHANGE MANAGER [address] [place] [address] Lita Oseguera Personal Advocate & 02/28/20 Liaison (PAL) Marija Edgar, Assigned PCP 06/08/20 PARAMEDICAL AIDE BUSINESS CHANGE MANAGER [address] [place], [place] [phone] Mynor Broussard MD Assigned Surgical Provider 06/01/20 [address] [place] [address] Mauri, Melody Neuroscience 06/04/20 MD Keisha Provider [address] [place], [place] [address] Galo Burrell MD Assigned Heart and 10/05/20 04/02/22 [address] [facility] Vascular Provider [address] [place], [place] [address] Diana Desir, Pharmacist Pharmacist 04/17/21 [facility] [address] [place], [place] [address] Rain Galaviz Physician Stone Polisher Machine Dermatology 04/28/21 ROVERTO Paredes [address] [facility] [address] [place], [place] [phone] Summer Lara MD Assigned OBGYN Provider 05/31/21 03/12/[address] [place], [place] [address] [place], [place] [phone] Tavia Wyatt MD MD Dermatology 07/14/21 Johnny Murillo Assigned Musculoskeletal 08/30/21 03/17/22 MD Ish Provider [address] [place], [place] [phone] documented as of this encounter
--- OUTSIDE RECORDS SUMMARY | 2022-04-28 01:09 | XMS_ITS | Encounter Summary ---
:2000 Author Organization [facility] Address [address] [place] [address] Care Team Providers Name Role Phone Lita Oseguera Unavailable Unavailable Marija Edgar APRN LIFE SKILLS SPECIALIST Primary Care Provider [phone] Marija Edgar APRN LIFE SKILLS SPECIALIST Unavailable Mynor Broussard MD Unavailable Keisha Dotson MD Unavailable Galo Burrell MD Unavailable Diana Desir [facility] Unavailable Rain Galaviz PA-C Unavailable [phone] Summer Lara MD Unavailable Tavia Wyatt MD Unavailable Unavailable Johnny Murillo MD Unavailable [phone] Erica Farrell APRN LIFE SKILLS SPECIALIST Unavailable Reason for Visit Reason Comments Chest Pain Anxiety Encounter Details Date Type Department Care Team Description 09/18/2021 [facility] Calvin capellan, Augustus Trevino MD Emergency Dept [facility] [address] [place] [address] [place], [place] [phone] (Wo rk) Social History Tobacco Use Types [...] How often do you attend yazidism or caodaism services? Never 09/22/2021 Do you belong to [...] place to sleep or slept in a residential (including now)? Education Answer Date Recorded What is the highest level of school you have completed or 12 th grade 08/07/2020 the highest degree you have received? Sex Assigned at Date Recorded Female 03/02/2021 5:45 PM CDT COVID-19 Exposure Response Date Recorded In the last month, have you been in contact with No / Unsure 09/18/2021 1:18 PM IMPORT COORDINATOR someone who was confirmed or suspected to have Coronavirus / COVID-19? documented as of this encounter Last Filed Vital Signs Vital Sign Reading Time Taken Comments Blood Pressure 143/78 09/18/2021 1:28 PM IMPORT COORDINATOR Pulse 100 09/18/2021 1:28 PM IMPORT COORDINATOR Temperature 36.9 ??C (98.4 ??F) 09/18/2021 1:28 PM IMPORT COORDINATOR Respiratory Rate 16 09/18/2021 1:28 PM IMPORT COORDINATOR Oxygen Saturation 100% 09/18/2021 1:28 PM IMPORT COORDINATOR Inhaled Oxygen Concentration - - Weight 84.1 kg (185 lb 6.5 oz) 09/18/2021 1:28 PM IMPORT COORDINATOR Height - - Body Mass Index 29.93 08/28/2021 6:18 AM IMPORT COORDINATOR documented in this encounter Medications at Time of [...] daily Anxiety documented as of this encounter ED Notes Leana Figueroa RN - 09/18/2021 1:24 PM CST Pt presents to ED for evaluation of chest pressure, SOB, and anxiety. Pt states she recently had an ablation, has been stable since the procedure. Today she's been feeling like her heart goes from racing to skipping beats to calming down again. States the pressure is significant, she is tearful in triage. RT COORDINATOR documented in this encounter Plan of Treatment Upcoming Encounters Date Type Specialty Care Team Description 04/28/2022 Office Visit Family [facility] Anthony Doe, [place] [address] [place], [place] [phone] (Wo rk) 05/03/2022 Office Visit Dermatology Neil Kent M D [address] [place], [place] [address] (Wo rk) 05/05/2022 Office Visit Optometry Yeny David, OD [address] [facility] [address] [place], [place] [phone] (Wo rk) 05/11/2022 Virtual Visit Pharm D Diana Desir , [facility] [address] [place], [place] [address] (Wo rk) 05/14/2022 Office Visit Cardiology Livan Sharif MD [address] [facility] [place] , [facility] [address] [place], [place] [address] (Wo rk) 05/31/2022 Office Visit [facility][1] Valery Veronica PA-C [address] [place], [place] [address] (Wo rk) documented as of this encounter Procedures Procedure Name Priority Date/Time Associated Diagnosis Comme nts EKG 12-LEAD, STAT 09/18/2021 1:39 PM Results f or this TRACING ONLY IMPORT COORDINATOR procedure are i n the results section. documented in this encounter Results EKG 12 lead (09/18/2021 1:39 PM IMPORT COORDINATOR) Component Value Ref Range Test Analysis Performed Pathologis t Method Time At Signature Systolic Blood mmHg RADIOLOGY Pressure RESULTS Diastolic Blood mmHg RADIOLOGY Pressure RESULTS Ventricular Rate 104 BPM RADIOLOGY RESULTS Atrial Rate 104 BPM RADIOLOGY RESULTS NJ Interval 152 ms RADIOLOGY RESULTS QRS Duration 96 ms RADIOLOGY RESULTS QT 348 ms RADIOLOGY RESULTS QTc 457 ms RADIOLOGY RESULTS P [place] 79 degrees RADIOLOGY RESULTS R AXIS 69 degrees RADIOLOGY RESULTS T [place] 24 degrees RADIOLOGY RESULTS Interpretation Sinus tachycardia RADIOLO GY ECG T wave abnormality, consider inferior ischemia RESULTS Abnormal ECG When compared with ECG of 02-SEP-2021 12:33, No significant change was found Specimen Anatomical Collection Method Collection Time Receive d Time (Source) Location / / Volume Laterality 09/18/2021 1:39 PM 5:57 IMPORT COORDINATOR PM IMPORT COORDINATOR Jeffrey Whalen MD ECG ORDERABLES Performing Organization Address City/State/ZIP Code Phon e Number RADIOLOGY RESULTS documented in this encounter Visit Diagnoses Not on filedocumented in this encounter Additional Health Concerns Assessment Noted Time PHQ-9 Depression Total Score: 2 04/02/2021 10:19 AM CD T documented as of this encounter Care Teams Parachute/Combatant Diver Officer Relationship Specialty Start Date End Date Marija Edgar, PCP - General Nurse Practitioner 04/30/20 ENLISTED AIRCREW/AERIAL OBSERVER/GUNNER LIFE SKILLS SPECIALIST [address] [place] [address] Lita Oseguera Personal Advocate & 02/28/20 Liaison (PAL) Marija Edgar, Assigned PCP 06/08/20 ENLISTED AIRCREW/AERIAL OBSERVER/GUNNER LIFE SKILLS SPECIALIST [address] [place] [address] Mynor Broussard MD Assigned Surgical 06/01/20 11/28/21 [address] Provider [address]AN[address] [place], [place] [address] Melody Dotson Neuroscience 06/04/20 MD Keisha Provider [address] [place], [place] [address] Galo Burrell MD Assigned Heart and 10/05/20 04/02/[address] Vascular Provider [address] [place] [phone] Diana Desir, Pharmacist Pharmacist 04/17/21 [facility] [address] [place] [address] Rain Galaviz Physician Skiing Teacher Dermatology 04/28/21 ROVERTO Paredes [address] [facility] [address] [facility] [place] [place] [phone] Summer Lara MD Assigned OBGYN Provider 05/31/21 03/12/[address] [place], [place] [address] Tavia Wyatt MD Dermatology 07/14/21 Johnny Medrano Assigned Musculoskeletal 08/30/21 03/17/22 MD Ish Provider [address] [place], [place] [phone] Erica Farrell Nurse Practitioner Cardiovascular Disease 09/09/21 ARLENE Guidry LIFE SKILLS SPECIALIST [address] [place] [id number] documented as of this encounter
--- OUTSIDE RECORDS SUMMARY | 2022-04-28 01:09 | XMS_ITS | Encounter Summary ---
:2000 Author Organization [place] Address [address] [place] [address] Care Team Providers Name Role Phone Lita Oseguera Unavailable Unavailable Marija Edgar APRN INTERIOR DESIGNER Primary Care Provider [phone] Marija Edgar APRN, CNP Unavailable Mynor Broussard MD Unavailable Keisha Dotson MD Unavailable Galo Burrell MD Unavailable Diana Desir [facility] Unavailable Rain Galaviz PA-C Unavailable [phone] Summer Lara MD Unavailable Tavia Wyatt MD Unavailable Unavailable Johnny Murillo MD Unavailable [phone] Erica Farrell APRN INTERIOR DESIGNER Unavailable Reason for Referral Consultation (Routine) - Pending Review Specialty Diagnoses / Procedures Referred By Contact Refer red To Contact Cardiovascular Disease Diagnoses SVT (supraventricular tachycardia) (H) Erica Farrell APRN CNP [address] [place] [address] Referral ID Status Reason Start Date Expiration Date Visits V isits Requested Authorized [id number] Pending 09/23/2021 09/23/2022 1 1 Review V Testing (Routine) - Closed Specialty Diagnoses / Procedures Referred By Contact Refer red To Contact Diagnoses SVT (supraventricular tachycardia) (H) Erica Farrell, Kartik Leadless rn review 8 to 14 Days ZZHC EXT ECG > 48HR TO 21 DAY RCRD W/CONECT INTL RCRD ZZC EXT ECG > 48HR TO 21 DAY REVIEW AND INTERPRETATN ID EXT ECG > 48HR TO 21 DAY RCRD W/CONECT INTL RCRD HVAC SPECIALIST INTERIOR DESIGNER ID EXT ECG > 48HR TO 21 DAY REVIEW AND INTERPRETATN HC EXT ECG > 48HR TO 21 DAY RCRD W/CONECT INTL RCRD [address] [place] [address] Referral ID Status Reason Start Date Expiration Date Visits Requ ested Visits Authorized [id number] Closed 09/22/2021 09/22/2022 1 1 Reason for Visit Reason Comments Follow Up SVT ablation Consultation (Routine) - Pending Review Specialty Diagnoses / Procedures Referred By Contact Refer red To Contact Cardiovascular Disease Diagnoses SVT (supraventricular tachycardia) (H) Galo Burrell MD [address] [place] [address] Referral ID Status Reason Start Date Expiration Date Visits V isits Requested Authorized [id number] Pending 08/27/2021 08/27/2022 1 1 Review Encounter Details Date Type Department Care Team Description 09/22/2021 Office Visit [facility] Galo Burrell MD [address] [place] [address] SVT (supraventricular tachycardia) (H) ( Primary Dx); [facility] Erica Brennanth, HVAC SPECIALIST INTERIOR DESIGNER [address] [place] [address] [address]; [address] [facility] S/P ablat ion operation for arrhythmia [address] [place] [address] Social History Tobacco Use Types [...] week 09/22/2021 How often do you attend sabianism or synagogue services? Never 09/22/2021 Do you belong to any clubs or organizations such as No 09/22/2021 sabianism groups, unions, fraternal or athletic groups, or [...] Sign Reading Time Taken Comments Blood Pressure 115/71 09/22/2021 4:22 PM CDT Pulse 81 09/22/2021 4:22 PM CDT Temperature - - Respiratory Rate - - Oxygen Saturation 95% 09/22/2021 4:22 PM CDT Inhaled Oxygen Concentration - - Weight 83.6 kg (184 lb 4.8 oz) 09/22/2021 4:22 PM CDT Height 167.6 cm (5' 6) 09/22/2021 4:22 PM CDT Body Mass Index 29.75 09/22/2021 4:22 PM CDT documented in this encounter Patient Instructions Patient InstructionsStoeErica weldon APRN CNP - 09/22/2021 4:00 PM CDT If you have problems or questions please call the RNs (Joanne Vaughan & Nichole) at [phone] documented in this encounter Progress Notes Erica Farrell APRN CNP - 09/22/2021 4:00 PM CDT Images from the original note were not included. Cardiology Clinic Progress Note Service Date: 09/22/21 Primary Keg Raiser: Dr. Burrell Reason for Visit: after undergoing an SVT ablation HPI: I had the pleasure of seeing Ms. Kim Johnson in the clinic today and she is a very pleasant 21 year old female with a past medical history notable for 1. SVT. 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 Anxiety 3. GERD 4. Seizure ?? Diagnostics: ?? ECHO (08/2020) revealed The visual ejection fraction is estimated at 55%. The right ventricle is normal in structure, function and size. There is trace to mild pulmonic valvular regurgitation. Reported having SVT symptoms for years and was diagnosed when she was . She was on metoprolol however her BP would decrease and her HR was 35 when slept therefore was discontinued. In the past her HR would just start to go fast up to 200 bpm and would self terminate. Her last episode, she got a hot flash, diaphoresis, chest pain and her heart rate would go up to 130-140's for a minute then godown to the 80's. She waited 2 hours, her heart rate felt like it went over 200 bpm, she felt like her heart stopped for a split second with symptoms of numbness, tingling, anxiety then proceeded to the ED On 08/28/2021, she underwent a AVNRT ablation Today, she reports having skipped beats and then goes into a tachycardia particularly during activity. She was in the ED twice since her ablation for palpitations with ECG of sinus rhythm. She continues to describe pounding and hard palpitations. She is also worried about coronary artery disease butdenies chest pain, shortness of breath, dyspnea on exertion. ASSESSMENT AND PLAN: SVT ?? Documented SVT 15 beats on zio patch and 6 beats of PSVT. ?? Another episode occurred during July 2021 ?? Does not tolerate metoprolol ?? S/p AVNRT ablation on 08/28/2021 ?? Today's ECG shows sinus rhythm with ventricular rate of 77 bpm Palpations ?? Pt continue to have palpations with sustained tachycardia despite having an AVNRT ablation ?? Will place a monitor Plan: ??? 14 day monitor ??? Consider propranolol ??? Pt is following up with a mental health provider to discuss her anxiety ??? encouraged stating to walk around to neighborhood to increase exercise tolerance ??? Follow up after monitor. ??? Please call the clinic if questions or problems arise Thank you for the opportunity to participate in this pleasant patient's care. We would be happy to see her sooner if needed for any concerns in the meantime. Erica Farrell APRN INTERIOR DESIGNER P Heart Text Page (M-F 8:00 am - 4:30 pm) Orders this Visit: Orders Placed This Encounter Procedures ??? EKG 12-lead complete w/read - Clinics (performed today) Orders Placed This Encounter Medications ??? LORazepam (ATIVAN) 0.5 MG tablet Sig: Take 1 tablet (0.5 mg) by mouth every 6 hours as needed for anxiety There are no discontinued medications. Encounter Diagnosis Name Primary? SVT (supraventricular tachycardia) (H) CURRENT MEDICATIONS: Current Outpatient Medications Medication Sig Dispense Refill [...] (500 mg) by mouth daily 90 tablet 1 ??? LORazepam (ATIVAN) 0.5 MG tablet Take 1 tablet (0.5 mg) by mouth every 6 hours as needed for anxiety ??? omeprazole (PRILOSEC) [address] capsule [...] by mouth daily 90 tablet 3 ??? sertraline (ZOLOFT) 100 MG tablet Take 2 tablets (200 mg) by mouth daily (Patient taking differently: Take 100 mg by mouth daily Tapering off) 180 tablet 1 ??? tacrolimus (PROTOPIC) 0.1 % external ointment Apply thin layer to psoriasis on thinner skin up to twice daily as needed. 60 g 11 ALLERGIES No Known Allergies PAST MEDICAL, SURGICAL, SOCIAL FAMILY HISTORY: History was reviewed and updated as needed, see medical record. Review of Systems: Skin: Negative Eyes: Negative ENT: Negative Respiratory: Negative Cardiovascular: Negative;lightheadedness;dizziness;edema palpitations;chest pain;Positive for Gastroenterology: not assessed Genitourinary: not assessed Musculoskeletal: Positive for neck pain;back pain Neurologic: Positive for headaches Psychiatric: Positive for excessive stress Heme/Lymph/Imm: Negative allergies Endocrine: Negative Physical Exam: Vitals: BP 115/71 (BP Location: Right arm, Patient Position: Sitting) Pulse 81 Ht 1.676 m (5' 6) Wt 83.6 kg (184 lb 4.8 oz) SpO2 95% BMI 29.75 kg/m?? Wt Readings from Last 4 Encounters: 09/22/21 83.6 kg (184 lb 4.8 oz) 09/22/21 83.2 kg (183 lb 6 oz) 08/28/21 82.2 kg (181 lb 4.8 oz) 08/27/21 84.4 kg (186 lb) CONSTITUTIONAL: Appears her stated age, well nourished, and in no acute distress. HEENT: Pupils equal, round. Sclerae nonicteric. NECK: Supple, no masses appreciated. C/V: Regular rate and rhythm, normal S1 and S2, no S3 or S4, no murmur, rub or gallop. RESP: Respirations are unlabored. Lungs are clear to auscultation bilaterally without wheezing, rales, or rhonchi. GI: Abdomen soft, non-tender, non-distended. EXTREM: No clubbing, cyanosis, or lower extremity edema bilaterally. NEURO: Alert and oriented, cooperative. Gait steady. No gross focal deficits. PSYCH: anxiout. Mentation normal. Responds to questions appropriately. SKIN: Warm and dry. No apparent rashes or bruising. Recent Lab Results: CBC RESULTS: Lab Results Component Value Date WBC 7.3 09/02/2021 WBC 10.1 01/11/2021 RBC 5.06 09/02/2021 RBC 3.92 01/11/2021 HGB 12.6 09/02/2021 HGB 9.5 (L) 01/13/2021 HCT 40.6 09/02/2021 HCT 32.4 (L) 01/11/2021 MCV 80 09/02/2021 MCV 83 01/11/2021 MCH 24.9 (L) 09/02/2021 MCH 25.3 (L) 01/11/2021 MCHC 31.0 (L) 09/02/2021 MCHC 30.6 (L) 01/11/2021 RDW 13.7 09/02/2021 RDW 13.7 01/11/2021 PLT 262 09/02/2021 PLT 220 01/11/2021 BMP RESULTS: Lab Results Component Value Date NA 138 09/02/2021 NA 134 12/27/2020 POTASSIUM 3.8 09/02/2021 POTASSIUM 3.9 12/27/2020 CHLORIDE 109 09/02/2021 CHLORIDE 103 12/27/2020 CO2 25 09/02/2021 CO2 28 12/27/2020 ANIONGAP 4 09/02/2021 ANIONGAP 3 12/27/2020 GLC 91 09/02/2021 GLC 76 12/27/2020 BUN 13 09/02/2021 BUN 6 (L) 12/27/2020 CR 0.65 09/02/2021 CR 0.63 12/27/2020 GFRESTIMATED >90 09/02/2021 GFRESTIMATED >90 12/27/2020 GFRESTBLACK >90 12/27/2020 CECILLE 9.0 09/02/2021 CECILLE 9.1 12/27/2020 CC Galo Burrell MD [address] [place] [address] This note was completed in part using [employer] voice recognition software. Although reviewed after completion, some word and grammatical errors may occur. documented in this encounter Plan of Treatment Upcoming Encounters Date Type Specialty Care Team Description 04/28/2022 Office Visit Family Practice Anthony Doe, PABaldo [address] [place] [address] (Wo rk) 05/03/2022 Office Visit Dermatology Neil Kent M D [address] [place] [address] (Wo rk) 05/05/2022 Office Visit Optometry Yeny aDvid, OD [address] [facility] [place] [phone] (Wo rk) 05/11/2022 Virtual Visit Pharm D Diana Desir , [facility] [address] [place], [place] [phone] (Wo rk) 05/14/2022 Office Visit Cardiology Livan Sharif MD [address], [address] [place] [address] (Wo rk) 05/31/2022 Office Visit Family Practice Valery Veronica PA-C [address] [place] [address] (Wo rk) Scheduled Referrals Name Type Priority Associated Diagnoses Order S chedule Follow-Up with Referral Routine: Next SVT (supraventricular Exp ected: Cardiology- PAULA available opening tachycardia) (H) (Approximate), Expires: 2022 documented as of this encounter Procedures Procedure Name Priority Date/Time Associated Diagnosis Comme nts EKG 12-LEAD Routine 09/23/2021 10:54 AM SVT Results for this COMPLETE W/READ - CDT (supraventricular proce dure are in CLINICS tachycardia) (H) the results section. documented in this encounter Results LEADLESS RECRUITING INTERN APPLICATION AND INTERP 8 TO 14 DAYS (10/02/2021 1:39 PM CDT) Anatomical Region Laterality Modality Other Specimen (Source) Anatomical Location Collection Method / Collectio n Time Received Time / Laterality Volume Narrative This result has an attachment that is no t available. Erica Farrell APRN, CNP CV CARDIAC SERVICES ORDERABLES EKG 12-lead complete w/read - Clinics (performed today) (09/23/2021 10:54 AM CDT) Narrative This result has an attachment that is no t available. Erica Farrell APRN, CNP ECG ORDERABLES documented in this encounter Visit Diagnoses Diagnosis SVT (supraventricular tachycardia) (H) - Primary Other specified cardiac dysrhythmias Palpitations S/P ablation operation for arrhythmia Other postprocedural status documented in this encounter Additional Health Concerns Assessment Noted Time PHQ-9 Depression Total Score: 2 04/02/2021 10:19 AM CD T documented as of this encounter Care Teams Dredge Boat Engineer Relationship Specialty Start Date End Date Marija Edgar PCP - General Nurse Practitioner 04/30/20 ARLENE GRANADOS [address] [place], [place] [phone] Lita Oseguera Personal Advocate & 02/28/20 Liaison (PAL) Marija Edgar, Assigned PCP 06/08/20 HVAC SPECIALIST INTERIOR DESIGNER [address] [place], [place] [phone] Mynor Broussard MD Assigned Surgical 06/01/20 11/28/[address] Provider [address] [place] [address] Mauri, Melody Neuroscience 06/04/20 MD Keisha Provider [address] [place], [place] [address] Galo Burrell MD Assigned Heart and 10/05/20 04/02/[address] Vascular Provider [address] [place], [place] [address] Diana Desir, Pharmacist Pharmacist 04/17/21 [facility] [address] [place], [place] [address] Rain Galaviz Physician Fringe Weaver Dermatology 04/28/21 ROVERTO Paredes [address] [place], [place] [phone] Summer Lara MD Assigned OBGYN Provider 05/31/21 03/12/[address] [place], [place] [address] Tavia Wyatt MD Dermatology 07/14/21 Johnny Medrnao Assigned Musculoskeletal 08/30/21 03/17/22 MD Ish Provider [address] [place], [place] [phone] Erica Farrell Nurse Practitioner Cardiovascular Disease 09/09/21 ARLENE Guidry INTERIOR DESIGNER [address] [place] [address] documented as of this encounter
--- OUTSIDE RECORDS SUMMARY | 2022-04-28 01:09 | XMS_ITS | Encounter Summary ---
:[address] [facility] [address] Address [address] [place] [address] Care Team Providers Name Role Phone Lita Oseguera Unavailable Unavailable Marija Edgar APRN FRYER OPERATOR Primary Care Provider [phone] Marija Edgar APRN FRYER OPERATOR Unavailable Mynor Broussard MD Unavailable Keisha Dotson MD Unavailable Galo Burrell MD Unavailable Diana Desir [facility] Unavailable Rain Galaviz PA-C Unavailable Summer Lara MD Unavailable Tavia Wyatt MD Unavailable Unavailable Johnny Murillo MD Unavailable [phone] Erica Farrell APRN FRYER OPERATOR Unavailable Teresita Bean [facility] Unavailable [phone] Encounter Details Date Type Department Care Team Description 09/24/2021 [facility] Teresita Bean Monserrat [facility] [address] [facility] [address] [facility] [place] [address] [address] [place] [address] [phone] Social History Tobacco Use Types Packs/Day Years [...] How often do you attend religious or bahai services? Never 09/22/2021 Do you belong to [...] this encounter Miscellaneous Notes Telephone Encounter - Teresita Bean [facility] - 09/24/2021 10:00 AM CDT S/O: She did call [facility] line and Candace/DIPTI pharmacist also spoke with patient see separate tele enc. She reports never tapered off sertraline and start paroxetine. She spoke with psychiatry are ok with plan.She reports having multiple panic attacks daily and past issues coming up that trigger episodes. Shepresented to ED with her heart racing and has hx of recent ablation recently. ED prescribed lorazepam and discussed risk and benefits. She also checked with her psychiatrist on the lorazepam with similar suggestion. she has taken a few dose so far. She reports her baby has not reacted to it but she was worried initially of using due to concentration in the breast milk and concerns of tolerance/what she has heard about this medication. She reports many years ago was prescribed lorazepam but did not use due to fear of the medication. She reports the lorazepam has helped her feel more calm and not overly sedative. She reports her baby is not over sedated either. Using lorazepam daily at most only right now. A/P: 1. Reassured patient and plan of the lorazepam use. 2. Start sertraline taper now to 150 mg daily. Hold on starting paroxetine. 3. Diana to follow-up with patient next week regarding when to start the paroxetine initiation. Patient concerned for serotonin syndrome. I sent mychart to patient and encouraged her to reach out to me in the meantime until Diana returns. Patient had no further questions and thanked me. Teresita Bean PharmD Medication Therapy Management Pharmacist Pager#: [phone] Telephone Encounter - Teresita Bean RPH - 09/24/2021 8:55 AM CDT Called patient regarding a pager message left on Diana CHAUDHARY's pager. I am covering for her whileshe is out until 09/30. Patient reports at the store right now and asked I call her back at 10am. Teresita Bean PharmD Medication Therapy Management Pharmacist Pager#: [phone] documented in this encounter Plan of Treatment Upcoming Encounters Date Type Specialty Care Team Description 04/28/2022 Office Visit Family Practice Anthony Doe, PA-C [address] [place], [place] [phone] (Wo rk) 05/03/2022 Office Visit Dermatology Neil Kent M D [address] [place], [place] [address] (Wo rk) 05/05/2022 Office Visit Optometry Yeny David, OD [address] [facility] [address] [place], [place] [phone] (Wo rk) 05/11/2022 Virtual Visit Pharm D Diana Desir , [facility] [address] [place], [place] [address] (Wo rk) 05/14/2022 Office Visit Cardiology Livan Sharif MD [address], [facility] [address] [place], [place] [address] (Wo rk) 05/31/2022 Office Visit Family Practice Valery Veronica , PAUcheC [address] [place] [address] (Wo rk) documented as of this encounter Visit Diagnoses Not on filedocumented in this encounter Additional Health Concerns Assessment Noted Time PHQ-9 Depression Total Score: 2 04/02/2021 10:19 AM CD T documented as of this encounter Care Teams Instructional Technology Coordinator Relationship Specialty Start Date End Date Marija Edgar, PCP - General Nurse Practitioner 04/30/20 COMMERCIAL COUNSEL FRYER OPERATOR [address] [place], [place] [phone] Lita Oseguera Personal Advocate & 02/28/20 Liaison (PAL) Marija Edgar, Assigned PCP 06/08/20 COMMERCIAL COUNSEL FRYER OPERATOR [address] [place] [address] Mynor Broussard MD Assigned Surgical 06/01/20 11/28/21 [address] Provider [address] [place] [address] Mauri, Assigned Neuroscience 06/04/20 MD Keisha Provider [address] [place], [place] [address] Galo Burrell MD Assigned Heart and 10/05/20 04/02/22 [address] Vascular Provider [address] [place], [place] [address] Diana Desir, Pharmacist Pharmacist 04/17/21 [facility] [address] [place], [place] [address] Rain Galaviz Physician Steel Placer Dermatology 04/28/21 ROVERTO Paredes [address] [facility] [address] [address] [place], [place] [phone] Summer Lara MD Assigned OBGYN Provider 05/31/21 03/12/22 [address] [place], [place] [address] Tavia Wyatt MD Dermatology 07/14/21 Johnny Medrano Assigned Musculoskeletal 08/30/21 03/17/22 MD Ish Provider [address] [place] [address] Erica Farrell Nurse Practitioner Cardiovascular Disease 09/09/21 ARLENE Guidry FRYER OPERATOR [address] [place], [place] [address] Teresita Bean Pharmacist Pharmacist 09/24/21 09/29/21 Walter, [facility] [address] [place], [place] [address] documented as of this encounter
--- OUTSIDE RECORDS SUMMARY | 2022-04-28 01:09 | XMS_ITS | Encounter Summary ---
:2000 Author Organization [facility] Address [address] [place] [address] Care Team Providers Name Role Phone Lita Oseguera Unavailable Unavailable Marija Edgar APRN ASSOCIATE PROFESSOR OF CHEMISTRY Primary Care Provider [phone] Marija Edgar APRN ASSOCIATE PROFESSOR OF CHEMISTRY Unavailable Mynor Broussard MD Unavailable Keisha Dotson MD Unavailable Galo Burrell MD Unavailable Diana Desir [facility] Unavailable Rain Galaviz PA-C Unavailable [phone] Summer Lara MD Unavailable Tavia Wyatt MD Unavailable Unavailable Johnny Murillo MD Unavailable [phone] Erica Farrell APRN ASSOCIATE PROFESSOR OF CHEMISTRY Unavailable [phone] Encounter Details Date Type Department Care Team Description 09/09/2021 Travel Social History Tobacco Use Types Packs/Day [...] How often do you attend synagogue or moravian services? Never 09/22/2021 Do you [...] last month, have you been in contact Unable to assess 09/09/2021 3:04 PM SKI MAKER with someone who was confirmed or suspected to have Coronavirus / COVID-19? documented as of this encounter Plan of Treatment Upcoming Encounters Date Type Specialty Care Team Description 04/28/2022 Office Visit Family Practice Anthony Doe PA-C [address] [place], [place] [phone] (Wo rk) 05/03/2022 Office Visit Dermatology Neil Kent M D [address] [place] [address] (Wo rk) 05/05/2022 Office Visit Optometry Yeny David, OD [address] [facility] [place] [address] (Wo rk) 05/11/2022 Virtual Visit Pharm D Diana Desir , [facility] [address] [place] [address] (Wo rk) 05/14/2022 Office Visit Cardiology Livan Sharif MD [address] [place] [address] (Wo rk) 05/31/2022 Office Visit Family Practice Valery Veronica , PA-C [address] [place], [place] [address] (Wo rk) documented as of this encounter Visit Diagnoses Not on filedocumented in this encounter Additional Health Concerns Assessment Noted Time PHQ-9 Depression Total Score: 2 04/02/2021 10:19 AM CD T documented as of this encounter Care Teams Credit Collections Manager Relationship Specialty Start Date End Date Marija Edgar, PCP - General Nurse Practitioner 04/30/20 FENCE POST DRIVER ASSOCIATE PROFESSOR OF CHEMISTRY [address] [place], [place] [phone] Lita Oseguera Personal Advocate & 02/28/20 Liaison (PAL) Marija Edgar, Assigned PCP 06/08/20 FENCE POST DRIVER ASSOCIATE PROFESSOR OF CHEMISTRY [address] [place], [place] [phone] Mynor Broussard MD Assigned Surgical 06/01/20 11/28/21 [address] Provider [address] [place], [place] [address] Mauri, Melody Neuroscience 06/04/20 MD Keisha Provider [address] [place], [place] [address] Galo Burrell MD Assigned Heart and 10/05/20 04/02/[address] Vascular Provider [address] [place] [id number] Diana Desir, Pharmacist Pharmacist 04/17/21 [facility] [address] [place], [place] [address] Rain Galaviz Physician [employer] Dermatology 04/28/21 ROVERTO Paredes [address] [facility] [place] [phone] Summer Lara MD Assigned OBGYN Provider 05/31/21 03/12/[address] [place], [place] [address] Tavia Wyatt MD Dermatology 07/14/21 Johnny Medrano Assigned Musculoskeletal 08/30/21 03/17/22 MD Ish Provider [address] [place], [place] [phone] Erica Farrell Nurse Practitioner Cardiovascular Disease 09/09/21 ARLENE Guidry ASSOCIATE PROFESSOR OF CHEMISTRY [address] [place] [address] documented as of this encounter
--- OUTSIDE RECORDS SUMMARY | 2022-04-28 01:09 | XMS_ITS | Encounter Summary ---
:2000 Author Organization [place] Address [address] [place] [address] Care Team Providers Name Role Phone Lita Oseguera Unavailable Unavailable Mraija Edgar APRN MIND READER Primary Care Provider [phone] Marija Edgar APRN MIND READER Unavailable Mynor Broussard MD Unavailable Keisha Dotson MD Unavailable Galo Burrell MD Unavailable Diana Desir [facility] Unavailable Rain Galaviz PA-C Unavailable [phone] Summer Lara MD Unavailable Tavia Wyatt MD Unavailable Unavailable Johnny Murillo MD Unavailable [phone] Encounter Details Date Type Department Care Team Description 09/02/2021 Ancillary Procedure M [facility] Celi Posey [facility] MD [address] [facility] EMERGENCY PHYSICIANS [facility] [place] [id number] [address] [phone] [facility] [address] [place] [address] (Wo rk) Social History Tobacco Use Types [...] week 09/22/2021 How often do you attend nondenominational or scientology services? Never 09/22/2021 Do you belong to any clubs or organizations such as No 09/22/2021 nondenominational groups, unions, fraternal or athletic groups, or [...] with No / Unsure 09/02/2021 12:26 PM BRICK VENEER MAKER someone who was confirmed or suspected to have Coronavirus / COVID-19? documented as of this encounter Plan of Treatment Upcoming Encounters Date Type Specialty Care Team Description 04/28/2022 Office Visit Family Practice Anthony Doe PA-C [address] [place] [address] (Wo rk) 05/03/2022 Office Visit Dermatology Neil Kent M D [address] [place], [place] [address] (Wo rk) 05/05/2022 Office Visit Optometry Yeny David, OD [address] [facility] [facility] [facility] [address] [place], [place] [id number] (Wo rk) 05/11/2022 Virtual Visit Pharm D Diana Desir , [facility] [address] [place], [place] [address] (Wo rk) 05/14/2022 Office Visit Cardiology Livan Sharif MD [address], [address] [place], [place] [address] (Wo rk) 05/31/2022 Office Visit Family Practice Valery Veronica , [place] [address] [place], [place] [address] (Wo rk) documented as of this encounter Procedures Procedure Name Priority Date/Time Associated Diagnosis Comme nts POC US ECHO LIMITED STAT 09/02/2021 1:03 PM Re sults for this BRICK VENEER MAKER procedure are i n the results section. documented in this encounter Results POC US ECHO LIMITED (09/02/2021 1:03 PM BRICK VENEER MAKER) Anatomical Region Laterality Modality Other Specimen (Source) Anatomical Location Collection Method / Collectio n Time Received Time / Laterality Volume Impressions 09/02/2021 1:03 PM BRICK VENEER MAKER Limited Bedside Cardiac Ultrasound, performed and interpreted by me. Indication: Chest Pain. Parasternal long axis and parasternal sh ort axis views were acquired. Image quality was satisfactory. Findings: ?? Global left ventricular function appears intact. Chambers do not appear dilated. There is no evidence of free fluid withi n the pericardium. IMPRESSION: Grossly normal left ventricu lar function and chamber size. ??No pericardial effusion.. Rustam Posey MD IMG POCUS documented in this encounter Visit Diagnoses Not on filedocumented in this encounter Additional Health Concerns Assessment Noted Time PHQ-9 Depression Total Score: 2 04/02/2021 10:19 AM CD T documented as of this encounter Care Teams Erp Manager Relationship Specialty Start Date End Date Marija Edgar, PCP - General Nurse Practitioner 04/30/20 TRANS ROUTER MIND READER [address] [place] [address] Lita Oseguera Personal Advocate & 02/28/20 Liaison (PAL) Marija Edgar, Assigned PCP 06/08/20 TRANS ROUTER MIND READER [address] [place] [address] Mynor Broussard MD Assigned Surgical Provider 06/01/20 [address] [place] [address] Mauri, Assigned Neuroscience 06/04/20 MD Keisha Provider [address] [place] [address] Galo Burrell MD Assigned Heart and 10/05/20 04/02/22 [address] [facility] Vascular Provider [address] [place] [address] Diana Desir, Pharmacist Pharmacist 04/17/21 [facility] [address] [place], [place] [address] Rain Galaviz Physician Operational Trainer Dermatology 04/28/21 ROVERTO Paredes [address] [facility] [address] [facility] [place] [id number] Summer Lara MD Assigned OBGYN Provider 05/31/21 03/12/[address] [place], [place] [address] Tavia Wyatt MD MD Dermatology 07/14/21 Johnny Murillo Assigned Musculoskeletal 08/30/21 03/17/22 MD Ish Provider [facility] [address] [address] documented as of this encounter
--- OUTSIDE RECORDS SUMMARY | 2022-04-28 01:09 | XMS_ITS | Encounter Summary ---
:2000 Author Organization [facility] Address [address] [place] [address] Care Team Providers Name Role Phone Lita Oseguera Unavailable Unavailable Marija Edgar APRN HEALTHCARE SPECIALIST Primary Care Provider [phone] Marija Edgar APRN HEALTHCARE SPECIALIST Unavailable Mynor Broussard MD Unavailable Keisha Dotson MD Unavailable Galo Burrell MD Unavailable Diana Desir [facility] Unavailable Rain Galaviz PA-C Unavailable [phone] Summer Lara MD Unavailable Tavia Wyatt MD Unavailable Unavailable Johnny Murillo MD Unavailable [phone] Erica Farrell APRN HEALTHCARE SPECIALIST Unavailable [phone] Encounter Details Date Type Department Care Team Description 09/18/2021 Travel Social History Tobacco Use Types Packs/Day [...] How often do you attend adventist or pentecostal services? Never 09/22/2021 Do you [...] with No / Unsure 09/18/2021 1:18 PM FINANCIAL OPERATIONS CONSULTANT someone who was confirmed or suspected to have Coronavirus / COVID-19? documented as of this encounter Plan of Treatment Upcoming Encounters Date Type Specialty Care Team Description 04/28/2022 Office Visit Family Practice Anthony Doe PA-C [address] [place], [place] [id number] (Wo rk) 05/03/2022 Office Visit Dermatology Neil Kent M D [address] [place] [address] (Wo rk) 05/05/2022 Office Visit OptYeny Morse, OD [address] [place] [address] (Wo rk) 05/11/2022 Virtual Visit Pharm D Diana Desir , [facility] [address] [place] [address] (Wo rk) 05/14/2022 Office Visit Cardiology Livan Sharif MD [address], [address] [place] [address] (Wo rk) 05/31/2022 Office Visit Family Practice Valery Veronica , PAUcheC [address] [place], [place] [address] (Wo rk) documented as of this encounter Visit Diagnoses Not on filedocumented in this encounter Additional Health Concerns Assessment Noted Time PHQ-9 Depression Total Score: 2 04/02/2021 10:19 AM CD T documented as of this encounter Care Teams Sunday [employer] Missionary Relationship Specialty Start Date End Date Marija Edgar, PCP - General Nurse Practitioner 04/30/20 BRIM BLOCKER HEALTHCARE SPECIALIST [address] [place] [address] Lita Oseguera Personal Advocate & 02/28/20 Liaison (PAL) Marija Edgar, Assigned PCP 06/08/20 BRIM BLOCKER HEALTHCARE SPECIALIST [address] [place] [address] yMnor Broussard MD Assigned Surgical 06/01/20 11/28/21 [address] Provider [address] [place] [address] Mauri, Melody Neuroscience 06/04/20 MD Keisha Provider [address] [place], [place] [address] Galo Burrell MD Assigned Heart and 10/05/20 04/02/[address] Vascular Provider [address] [place] [address] Diana Desir, Pharmacist Pharmacist 04/17/21 [facility] [address] [place] [address] Rain Galaviz Physician Neuro Ophthalmologist Dermatology 04/28/21 ROVERTO Paredes [address] [facility] [address] [place] [id number] Summer Lara MD Assigned OBGYN Provider 05/31/21 03/12/[address] [place], [place] [address] Tavia Wyatt MD Dermatology 07/14/21 Johnny Medrano Assigned Musculoskeletal 08/30/21 03/17/22 MD Ish Provider [address] [place], [place] [address] Erica Farrell Nurse Practitioner Cardiovascular Disease 09/09/21 ARLENE Guidry HEALTHCARE SPECIALIST [address] [place] [id number] documented as of this encounter
--- OUTSIDE RECORDS SUMMARY | 2022-04-28 01:09 | XMS_ITS | Encounter Summary ---
:2000 Author Organization [place] Address [address] [place] [address] Care Team Providers Name Role Phone Lita Oseguera Unavailable Unavailable Marija Edgar APRN TENSION 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 Primary Care Provider [phone] Marija Edgar APRN TENSION 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 Unavailable Mynor Broussard MD Unavailable Keisha Dotson MD Unavailable Galo Burrell MD Unavailable Diana Desir [facility] Unavailable Rain Galaviz PA-C Unavailable [phone] Summer Lara MD Unavailable Tavia Wyatt MD Unavailable Unavailable Johnny Murillo MD Unavailable [phone] Erica Farrell APRN TENSION 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 Unavailable [phone] Encounter Details Date Type Department Care Team Description 09/22/2021 Travel Social History Tobacco Use Types Packs/Day [...] week 09/22/2021 How often do you attend druze or latter-day services? Never 09/22/2021 Do you belong to any clubs or organizations such as No 09/22/2021 druze groups, unions, fraternal or athletic groups, or [...] Office Visit Family Practice Anthony Doe PA-C [address] [place], [place] [address] (Wo rk) 05/03/2022 Office Visit Dermatology Neil Kent M D [address] [place] [address] (Wo rk) 05/05/2022 Office Visit Optometry Yeny David OD [address] [place] [address] (Wo rk) 05/11/2022 Virtual Visit Pharm D Diana Desir , [facility] [address] [place] [address] (Wo rk) 05/14/2022 Office Visit Cardiology Livan Sharif MD [address], [address] [place] [address] (Wo rk) 05/31/2022 Office Visit Family Practice Valery Veronica , PAUcheC [address] [place], [place] [address] (Wo rk) documented as of this encounter Visit Diagnoses Not on filedocumented in this encounter Additional Health Concerns Assessment Noted Time PHQ-9 Depression Total Score: 2 04/02/2021 10:19 AM CD T documented as of this encounter Care Teams Security Project Manager Relationship Specialty Start Date End Date Marija Edgar, PCP - General Nurse Practitioner 04/30/20 STATISTICAL SECRETARY TENSION 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 [address] [place] [address] Lita Oseguera Personal Advocate & 02/28/20 Liaison (PAL) Marija Edgar, Assigned PCP 06/08/20 STATISTICAL SECRETARY TENSION 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 [address] [place] [address] Mynor Br[place]ard MD Assigned Surgical 06/01/20 11/28/21 [address] Provider [address] [place], [place] [address] Mauri, Melody Neuroscience 06/04/20 MD Keisha Provider [address] [place], [place] [address] Galo Burrell MD Assigned Heart and 10/05/20 04/02/[address] Vascular Provider [address] [place] [address] Diana Desir, Pharmacist Pharmacist 04/17/21 [facility] [address] [place], [place] [address] Rain Galaviz Physician Wall Mirror Department Supervisor Dermatology 04/28/21 R[address]es [address] [facility] [address] [place] [phone] Summer Lara MD Assigned OBGYN Provider 05/31/21 03/12/[address] [place], [place] [address] Tavia Wyatt MD Dermatology 07/14/21 Johnny Medrano Assigned Musculoskeletal 08/30/21 03/17/22 MD Ish Provider [address] [place], [place] [address] Erica Farrell Nurse Practitioner Cardiovascular Disease 09/09/21 ARLENE Guidry TENSION 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 [address] [place] [address] documented as of this encounter
--- OUTSIDE RECORDS SUMMARY | 2022-04-28 01:09 | XMS_ITS | Encounter Summary ---
:2000 Author Organization [place] Address [address] [place] [address] Care Team Providers Name Role Phone Lita Oseguera Unavailable Unavailable Marija Edgar APRN MANAGER DOCUMENT CONTROL Primary Care Provider [phone] Marija Edgar APRN MANAGER DOCUMENT CONTROL Unavailable Mynor Broussard MD Unavailable Keisha Dotson MD Unavailable Galo Burrell MD Unavailable Diana Desir [facility] Unavailable Rain Galaviz PA-C Unavailable [phone] Summer Lara MD Unavailable Tavia Wyatt MD Unavailable Unavailable Johnny Murilol MD Unavailable [phone] Encounter Details Date Type Department Care Team Description 09/02/2021 Travel Social History Tobacco Use Types Packs/Day [...] How often do you attend baptism or baptist services? Never 09/22/2021 Do you belong to [...] with No / Unsure 09/02/2021 12:26 PM BODY TEAM MEMBER someone who was confirmed or suspected to have Coronavirus / COVID-19? documented as of this encounter Plan of Treatment Upcoming Encounters Date Type Specialty Care Team Description 04/28/2022 Office Visit Family Practice Anthony Doe PA-C [address] [place] [address] (Wo rk) 05/03/2022 Office Visit Dermatology Neil Kent M D [address] [place], [place] [address] (Wo rk) 05/05/2022 Office Visit Optometry Yeny David, OD [address] [facility] [place] [address] (Wo rk) 05/11/2022 Virtual Visit Pharm D Diana Desir , [facility] [address] [place], [place] [address] (Wo rk) 05/14/2022 Office Visit Cardiology Livan Sharif MD [address] [place], [place] [address] (Wo rk) 05/31/2022 Office Visit Family Practice Valery Veronica , PA-C [address] [place], [place] [address] (Wo rk) documented as of this encounter Visit Diagnoses Not on filedocumented in this encounter Additional Health Concerns Assessment Noted Time PHQ-9 Depression Total Score: 2 04/02/2021 10:19 AM CD T documented as of this encounter Care Teams Lending Advisor Relationship Specialty Start Date End Date Marija Edgar, PCP - General Nurse Practitioner 04/30/20 VISITOR INFORMATION ASSISTANT MANAGER DOCUMENT CONTROL [address] [place] [address] Lita Oseguera Personal Advocate & 02/28/20 Liaison (PAL) Marija Edgar, Assigned PCP 06/08/20 VISITOR INFORMATION ASSISTANT MANAGER DOCUMENT CONTROL [address] [place] [address] Mynor [place] MD Assigned Surgical Provider 06/01/[address] [facility] [place] [address] Mauri, Assigned Neuroscience 06/04/20 MD Keisha Provider 909 [place] [address] Galo Burrell MD Assigned Heart and 10/05/20 04/02/[address] Vascular Provider [address] [place] [address] Diana Desir, Pharmacist Pharmacist 04/17/21 [facility] [address] [facility] [place] [address] Rain Galaviz Physician Security Tester Dermatology 04/28/21 ROVERTO Paredes [address] [facility] [address] [place] [facility], [place] [phone] Summer Lara MD Assigned OBGYN Provider 05/31/21 03/12/[address] [place], [place] [address] Tavia Wyatt MD MD Dermatology 07/14/21 Johnny Murillo Assigned Musculoskeletal 08/30/21 03/17/22 MD Ish Provider [address] [place], [place] [phone] documented as of this encounter
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
--- OUTSIDE RECORDS SUMMARY | 2022-04-28 01:09 | XMS_ITS | Encounter Summary ---
:2000 Author Organization [facility] Address [address] [place] [id number] Care Team Providers Name Role Phone Lita Oseguera Unavailable Unavailable Marija Edgar APRN MANAGER OFFICE SERVICES Primary Care Provider [phone] Marija Edgar APRN MANAGER OFFICE SERVICES Unavailable Mynor Broussard MD Unavailable Keisha Dotson MD Unavailable Galo Burrell MD Unavailable Diana Desir [facility] Unavailable Rain Galaviz PA-C Unavailable [phone] Summer Lara MD Unavailable Tavia Wyatt MD Unavailable Unavailable Johnny Murillo MD Unavailable [phone] Reason for Visit Reason Comments Medication Therapy Management Encounter Details Date Type Department Care Team Description 09/02/2021 Virtual Visit [facility] Diana Desir, Anxi ety (Primary Dx); Clinic [facility] Moderate major depression (H); [address] [place] [address] Gastroesophageal reflux dise ase with esophagitis without hemorrhage; [place], [place] [address] Psoriasis [id number] [place], [place] [phone] [id number] Social History Tobacco Use Types Packs/Day Years [...] week 09/22/2021 How often do you attend yarsani or restoration services? Never 09/22/2021 Do you belong to any clubs or organizations such as No 09/22/2021 yarsani groups, unions, fraternal or athletic groups, or [...] place to sleep or slept in a nursing home (including now)? Education Answer Date Recorded What is the highest level of school you have completed or 12 th grade 08/07/2020 the highest degree you have received? Sex Assigned at Date Recorded Female 03/02/2021 5:45 PM CDT COVID-19 Exposure Response Date Recorded In the last month, have you been in contact with No / Unsure 09/02/2021 12:26 PM [facility] someone who was confirmed or suspected to have Coronavirus / COVID-19? documented as of this encounter Patient Instructions Patient InstructionsDiana Desir, [facility] - 09/02/2021 3:30 PM CST Recommendations from today's MTM visit: 1. Decrease sertraline to 150 mg daily for a week then to 100 mg daily for 1-2 weeks then 50 mg daily for 1-2 weeks then 25 mg daily for 1-2 weeks then stop if able. Let me know if you can't quarter the 100 mg tablets for 25 mg at the end of the taper and we can send you 25 mg tablets. 2. Start paroxetine 10 mg (1/2 tablet) daily for 7 days then may increase to 20 mg (1 full tablet) daily. 3. Discuss starting propranolol with your sales team member when you meet with them in a few weeks. It was great to speak with you today. I value your experience and would be very thankful for your time with providing feedback on our clinic survey. You may receive a survey via email or text message in the next few days. To schedule another MTM appointment, please call the clinic directly or you may call the MTM scheduling line at [phone] or toll-free at . My Clinical Pharmacist's contact information: Please feel free to contact me with any questions or concerns you have. Diana Desir, PharmD Medication Therapy Management Provider, [facility] documented in this encounter Progress Notes Diana Desir RPH - 09/02/2021 3:30 PM CST Medication Therapy Management (MTM) Encounter ASSESSMENT: Medication [...] stopping . After discussion of risks vs benefits, will switch sertraline to paroxetine and she will continue . If paroxetine ineffective, will then switch to venlafaxine. Recommend she discuss and consider starting propranolol as well for anxiety and to discuss with sales team member at upcoming cardiology appointment. Pharmacokinetic Gene Variants Gene Phenotype Notable Medications Impacted CYP2C9 Intermediate Metabolizer fluoxetine MTHFR Reduced Conversion Pharmacodynamic Gene Variants Gene Phenotype Notable Medications Impacted SLC6A4 Intermediate Response Sertraline and other SSRIs ADRA2A Moderately Reduced Response GERD: stable Psoriasis: Following dermatology. PLAN: 1. Decrease sertraline to 150 mg daily for a week then to 100 mg daily for 1-2 weeks then 50 mg daily for 1-2 weeks then 25 mg daily for 1-2 weeks then stop if able. 2. Start paroxetine 10 mg (1/2 tablet) daily for 7 days then may increase to 20 mg (1 full tablet) daily. Follow-up: Return in about 1 month (around 09/30/2021) for Medication Therapy Management Pharmacist. SUBJECTIVE/OBJECTIVE: Kim Johnson is a 21 year old female called for a follow-up visit. Today's visit is a follow-up MTM visit from 05/29. Reason for visit: worsened anxiety. Tobacco: She reports that she quit smoking about 20 months ago. Her smoking use included other. She smoked 1.00 pack per day. She has never used smokeless tobacco. Alcohol: not currently using Medication Adherence/Access: no issues reported Anxiety/Depression: Current medications include: Sertraline 200 mg once daily. Been on sertraline since high school, works okay but obessive about certain things. Anxiety worsened lately. Sertralinedoesn't work as well as it should. High anxiety. Overthinks a lot, worries a lot. More anxiety, not a very depressed person. still 6 month old and considering stopping . Never tried propranolol in the past, wonders about lorazepam as needed for panic. Had panic attack today and was in ED. Panic more lately d/t ablation last week for SVT. Past med trial: Buspirone (made her feel very weird, suicidal thoughts she thinks) PHQ 09/29/2020 03/02/2021 04/02/2021 PHQ-9 Total Score 6 2 2 Q9: Thoughts of better off /self-harm past 2 weeks Not at all Not at all Not at all KALYN-7 SCORE 09/29/2020 03/02/2021 04/02/2021 Total Score 12 (moderate anxiety) 4 (minimal anxiety) 4 (minimal anxiety) Total Score 14 4 4 GERD: Current medications include: Prilosec (omeprazole) 40 mg once daily. Pt reports no current symptoms. Patient feels that current regimen is effective. Psoriasis: Current medications include: betamethasone 0.05% as needed on thicker skin and tacrolimus0.1% as needed on thinner skin with fluocinonide 0.05% on scalp. Following dermatology. Today's Vitals: There were no vitals taken for this visit. Post Discharge Medication Reconciliation Status: discharge medications reconciled and changed, per note/orders. I spent 20 minutes with this patient today. All changes were made via collaborative practice agreement with Marija Edgar APRN CNP. A copy of the visit note was provided to the patient's provider(s). The patient was sent via [employer] a summary of these recommendations. Diana Desir PharmD Medication Therapy Management Provider, [facility] Pager: [phone] Telemedicine Visit Details Type of service: Telephone visit Start Time: 3:38 PM End Time: 3:58 PM Originating Location (patient location): Home Distant Location (provider location): [facility] Medication Therapy Recommendations Anxiety Current Medication: sertraline (ZOLOFT) 100 MG tablet Rationale: Condition refractory to medication - Ineffective medication - Effectiveness Recommendation: Change Medication - PARoxetine 20 MG tablet Status: Accepted per CPA [facility] documented in this encounter Plan of Treatment Upcoming Encounters Date Type Specialty Care Team Description 04/28/2022 Office Visit Family Practice Anthony Doe, [place] [address] [place], [place] [phone] ([place]) 05/03/2022 Office Visit Dermatology Neil Kent M D [address] [place], [place] [id number] ([place]) 05/05/2022 Office Visit Optometry Yeny David, OD [address] [facility] [place] [phone] ([place] car[place]son) 05/11/2022 Virtual Visit Pharm Diana Eckert [facility] [address] [place] [address] (Wo rk) 05/14/2022 Office Visit Cardiology Livan Sharif MD [address] [place] [address] (Wo rk) 05/31/2022 Office Visit Family Practice Valery Veronica , PA-C [address] [place], [place] [phone] (Wo rk) documented as of this encounter Visit Diagnoses Diagnosis Anxiety - Primary Anxiety state, unspecified Moderate major depression (H) Major depressive disorder, single episod e, moderate Gastroesophageal reflux disease with eso phagitis without hemorrhage Psoriasis Other psoriasis documented in this encounter Additional Health Concerns Assessment Noted Time PHQ-9 Depression Total Score: 2 04/02/2021 10:19 AM CD T documented as of this encounter Care Teams Casting Operator Relationship Specialty Start Date End Date Marija Edgar, PCP - General Nurse Practitioner 04/30/20 [facility] MANA[facility] OFF[facility] SERVICES [address] [place] [address] Lita Oseguera Personal Advocate & 02/28/20 Liaison (PAL) Marija Edgar, Assigned PCP 06/08/20 [facility] [address] [place] [address] Mynor Broussard MD Assigned Surgical Provider 06/01/20 [address] [place] [address] Trevor-Brittani, Assigned Neuroscience 06/04/20 MD Keisha Provider [address] [place] [address] Galo Burrell MD Assigned Heart and 10/05/20 04/02/22 [address] Vascular Provider [address] [place] [address] Diana Desir, Pharmacist Pharmacist 04/17/21 [facility] [address] [place] [address] Rain Galaviz Physician Life Teacher Dermatology 04/28/[address] [facility] [address] [place], [place] [id number] Summer Lara MD Assigned OBGYN Provider 05/31/21 03/12/[address] [place], [place] [address] Tavia Wyatt MD MD Dermatology 07/14/21 Johnny Murillo Assigned Musculoskeletal 08/30/21 03/17/22 MD Ish Provider [address] [place], [place] [address] documented as of this encounter
--- OUTSIDE RECORDS SUMMARY | 2022-04-28 01:09 | XMS_ITS | Encounter Summary ---
:2000 Author Organization [facility] Address [address] [place] [id number] Care Team Providers Name Role Phone Lita Oseguera Unavailable Unavailable Marija Edgar APRN DRAWING TRACER Primary Care Provider [phone] Marija Edgar APRN DRAWING TRACER Unavailable Mynor Broussard MD Unavailable Keisha Dotson MD Unavailable Galo Burrell MD Unavailable Diana Desir [facility] Unavailable Rain Galaviz PA-C Unavailable [phone] Summer Lara MD Unavailable Tavia Wyatt MD Unavailable Unavailable Johnny Murillo MD Unavailable [phone] Reason for Visit Reason Comments Palpitations Encounter Details Date Type Department Care Team Description 09/02/2021 Emergency [facility] Mei Ortiz PA-C Palpitations [facility] Emergency Dept [facility] [address] [facility] [address] [place] [address] [address] [place] [address] (Wo rk) Social History Tobacco [...] week 09/22/2021 How often do you attend tenriism or baptism services? Never 09/22/2021 Do you belong to any clubs or organizations such as No 09/22/2021 tenriism groups, unions, fraternal or athletic groups, or [...] place to sleep or slept in a [place] [facility] [place] (including now)? Education Answer Date Recorded What is the highest level of school you have completed or 12 th grade 08/07/2020 the highest degree you have received? Sex Assigned at Date Recorded Female 03/02/2021 5:45 PM CDT COVID-19 Exposure Response Date Recorded In the last month, have you been in contact with No / Unsure 09/02/2021 12:26 PM SHIPPING POINT INSPECTOR someone who was confirmed or suspected to have Coronavirus / COVID-19? documented as of this encounter Last Filed Vital Signs Vital Sign Reading Time Taken Comments Blood Pressure 129/78 09/02/2021 12:22 PM SHIPPING POINT INSPECTOR Pulse 84 09/02/2021 1:57 PM SHIPPING POINT INSPECTOR Temperature 36.8 ??C (98.3 ??F) 09/02/2021 12:22 PM SHIPPING POINT INSPECTOR Respiratory Rate 17 09/02/2021 1:57 PM SHIPPING POINT INSPECTOR Oxygen Saturation 97% 09/02/2021 12:22 PM SHIPPING POINT INSPECTOR Inhaled Oxygen Concentration - - Weight - - Height - - Body Mass Index - - documented in this encounter Discharge Instructions AttachmentsThe following attachments cannot be sent through Care Everywhere. Palpitations (Stateless)documented in this encounter Medications at Time of [...] daily tabletIndications: Convulsions, unspecified convulsion type (H) sertraline (ZOLOFT) 100 Take 2 tablets (200 180 tablet 1 10/30/2021 MG tabletIndications: mg) by mouth daily Anxiety documented as of this encounter ED Notes Macy Rangel RN - 09/02/2021 12:26 PM CST Pt has been feeling palpitations; Concerned that she can see her heartbeat on her chest. Also notes cramping to her R arm. Unruly Rg RN - 09/02/2021 12:21 PM CST Bed: ED02 Expected date: Expected time: Means of arrival: Comments: Adam edmond - 21 F chest back pain eta 1215 PING POINT INSPECTOR eMi Ortiz PA-C - 09/02/2021 12:19 PM CST History Chief Complaint: Palpitations The history is provided by the patient. Kim Johnson is a 21 year old female 5 day s/p EP ablation for SVT with history of SVT, CKD and anxiety who presents with palpitations. The patient tells us that since having her ablation five days ago going up the stairs or doing anything active makes her out of breath very quickly. In addition, yes terday the patient began to feel her heart race for 30-45 minutes; she had this same sensation todayand began noticing palpitations which is what prompted the EMS call. Accompanying the palpitations is right arm cramping and jaw pain. The patient denies cough, fever, fatigue, abdominal pain, headache, syncope excessive caffeine use or chance of (the patient has an IUD). She reports episodeof sharp pain to her right ribs earlier today that resolved on its own. To note, the patient has a six month old daughter that she is currently breast feeding. Review of Systems Constitutional: Negative for fatigue and fever. Respiratory: Positive for shortness of breath. Negative for cough. Cardiovascular: Positive for chest pain and palpitations. Gastrointestinal: Negative for abdominal pain. Neurological: Negative for syncope and headaches. All other systems reviewed and are negative. Allergies: The patient has no known allergies. 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 Constitutional: General: She is not in acute distress. Appearance: Normal appearance. She is not ill-appearing, toxic-appearing or diaphoretic. HENT: Head: Normocephalic. Right Ear: External ear normal. Left Ear: External ear normal. Mouth/Throat: Comments: Mask in place. Clear speech. Eyes: Conjunctiva/sclera: Conjunctivae normal. Cardiovascular: Rate and Rhythm: Normal rate and regular rhythm. Pulses: Normal pulses. Heart sounds: Normal heart sounds. Pulmonary: Effort: Pulmonary effort is normal. No respiratory distress. Breath sounds: Normal breath sounds. Abdominal: Palpations: Abdomen is soft. Tenderness: There is no abdominal tenderness. Musculoskeletal: General: No swelling or tenderness. Normal range of motion. Cervical back: Normal range of motion and neck supple. Right lower leg: No edema. Left lower leg: No edema. Skin: General: Skin is warm. Capillary Refill: Capillary refill takes less than 2 seconds. Neurological: General: No focal deficit present. Mental Status: She is alert. Psychiatric: Mood and Affect: Mood normal. Behavior: Behavior normal. Thought Content: Thought content normal. Judgment: Judgment normal. Emergency Department Course ECG ECG obtained at 1233, ECG read at 1234 Normal sinus rhythm with sinus arrhythmia. Normal ECG. No significant change was found as compared to prior, dated 08/28/2021. Rate 84 bpm. ME interval 138 ms. QRS duration 88 ms. QT/QTc 350/413 ms. P-R-T axes 55 42 30. Imaging: POC US ECHO LIMITED Final Result Limited Bedside Cardiac Ultrasound, performed and interpreted by me. Indication: Chest Pain. Parasternal long axis and parasternal short axis views were acquired. Image quality was satisfactory. Findings: Global left ventricular function appears intact. Chambers do not appear dilated. There is no evidence of free fluid within the pericardium. IMPRESSION: Grossly normal left ventricular function and chamber size. No pericardial effusion.. Report per EM attending (CAT) Laboratory: Labs Ordered and Resulted from Time of ED Arrival to Time of ED Departure CBC WITH PLATELETS AND DIFFERENTIAL - Abnormal Result Value WBC Count 7.3 RBC Count 5.06 Hemoglobin 12.6 Hematocrit 40.6 MCV 80 MCH 24.9 (*) MCHC 31.0 (*) RDW 13.7 Platelet Count 262 % Neutrophils 70 % Lymphocytes 21 % Monocytes 5 % Eosinophils 4 % Basophils 0 % Immature Granulocytes 0 NRBCs per 100 WBC 0 Absolute Neutrophils 5.1 Absolute Lymphocytes 1.6 Absolute Monocytes 0.3 Absolute Eosinophils 0.3 Absolute Basophils 0.0 Absolute Immature Granulocytes 0.0 Absolute NRBCs 0.0 D DIMER QUANTITATIVE - Normal D-Dimer Quantitative 0.29 BASIC METABOLIC PANEL - Normal Sodium 138 Potassium 3.8 Chloride 109 Carbon Dioxide (CO2) 25 Anion Gap 4 Urea Nitrogen 13 Creatinine 0.65 Calcium 9.0 Glucose 91 GFR Estimate >90 HCG QUALITATIVE - Normal hCG Serum Qualitative Negative Emergency Department Course: Reviewed: I reviewed nursing notes, vitals, past medical history, Care Everywhere and MIIC Assessments: 1240 I obtained history and examined the patient as noted above. 1420 I rechecked the patient and explained findings. BS echo with EM attending. Consults: [address] Posey, colleague Emergency Medicine, regarding this patient. Will evaluate pt as well. Agrees to working plan. Disposition: The patient was discharged to home. Impression & Plan Medical Decision Makin21 y/o female who is s/p Ablation for SVT presents for palpitations. Anxiety Hx and also has a centered care plan due to frequent ED utilization. On exam, not acutely ill appearing or distressed. No increased work of breathing. Ddimer checked as PE considered due to mild tachycardia, IUD, and recent procedure although felt less likely. This was neg. CBC/BMP checked to assess for leukocytosis/penia, anemia, and abnl platelets, electrolyte derangement and renal function, all unremarkable. case monitor revealed sinus/sinus tach. BS echo reassuring with no pericardial effusion. No concern for pneumonia, pulm edema, or PTX so elected to forgo CXR as pt with significant imaging Hx. Discussed with pt she is felt stable for discharge. Trop not checked as suspect this may be positive in setting of recent ablation, no concern this is ACS or SCAD or worrisome myocarditis picture. Pt educated on S/S thatshould prompt ED re-eval. 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 EM attending, Dr. Posey, evaluated pt as well, agrees to plan and spent significant amount of time with pt answering questions and providing reassurance. At end of eval,questions answered, she is comfortable with plan and appreciative. Diagnosis: ICD-10-CM 1. Palpitations R00.2 Discharge Medications: New Prescriptions No medications on file Scribe Disclosure: I, Clem Rosales, am serving as a scribe at 12:28 PM on 09/02/2021 to document services personally performed by Mei Ortiz PA-C, based on my observations and the provider's statements to me. Mei Ortiz PA-C 09/02/21 1800 PING POINT INSPECTOR Associated attestation - Rustam Posey MD - 09/03/2021 9:35 AM SHIPPING POINT INSPECTOR Please see separate note for my attending physician attestation on this patient. Rustam Posey MD - 09/02/2021 12:19 PM CST Emergency Department Attending Supervision Note 09/02/2021 12:55 PM I evaluated this patient in conjunction with Mei Ortiz PA-C. Briefly, the patient presented with ongoing issues of palpitations and sharp chest pain. She has been evaluated in this emergency department countless prior times for similar issues and has been found to struggle with SVT. She underwent an ablation 5 days ago by cardiology. Since then, she continues to have spells where she feels as though her heart is skipping beats and she feels sharp pains in her chest, prompting her visit to us today. On my exam, she is anxious but otherwise resting comfortably on the bed in no obvious distress. Cardiac: Regular rate and rhythm Lungs: Clear to auscultation Abd: Soft and benign Neuro: Nonfocal Results: I reviewed the labs which were all unremarkable including a negative D- dimer. I personally performed a bedside echocardiogram which shows no evidence of a pericardial effusion or significant wall motion abnormality. EKG shows a normal sinus rhythm with an appropriate rate. My impression is palpitations in a postoperative state from a recent ablation. With a negative D-dimer, I have no concerns for PE in this otherwise low risk patient. Bedside ultrasound shows no pericardial effusion and she is otherwise not hypotensive, tachycardic, or hypoxic. Reviewing her chart, thesymptoms are very similar to what she is experienced in the past. She was advised to continue to work through cardiology on these palpitations and she has appropriate follow- up scheduled. Otherwise, she will return to the emergency department for any worsening of condition or other emergent concerns. Diagnosis ICD-10-CM 1. Palpitations R00.2 Rustam Posey MD 09/03/21 0935 PING POINT INSPECTOR documented in this encounter Plan of Treatment Upcoming Encounters Date Type Specialty Care Team Description 04/28/2022 Office Visit Family Practice Anthony Doe, [facility] [address] [place], [place] [phone] (Wo rk) 05/03/2022 Office Visit Dermatology Neil Kent M D [address] [place], [place] [phone] (Wo rk) 05/05/2022 Office Visit Optometry Yeny David, OD [address] [facility] [address] [place], [place] [phone] (Wo rk) 05/11/2022 Virtual Visit Pharm D Diana Desir , [facility] [address] [place], [place] [phone] (Wo rk) 05/14/2022 Office Visit Cardiology Livan Sharif MD [address] [facility] [address] , [facility] [address] [place], [place] [phone] (Wo rk) 05/31/2022 Office Visit [facility] Valery Veronica PA-C [address] [place], [place] [phone] (Wo rk) documented as of this encounter Procedures Procedure Name Priority Date/Time Associated Comments Diagnosis POC US ECHO LIMITED STAT 09/02/2021 1:03 PM Re sults for this SHIPPING POINT INSPECTOR procedure are i n the results section. EXTRA TUBE STAT 09/02/2021 12:53 Results for this PM SHIPPING POINT INSPECTOR procedure are i n the results section. EXTRA PURPLE TOP TUBE STAT 09/02/2021 12:53 Re sults for this PM SHIPPING POINT INSPECTOR procedure are i n the results section. EXTRA GREEN TOP STAT 09/02/2021 12:53 Results for this (LITHIUM HEPARIN) PM SHIPPING POINT INSPECTOR procedure are in TUBE the results section. EXTRA BLUE TOP TUBE STAT 09/02/2021 12:53 Resu lts for this PM SHIPPING POINT INSPECTOR procedure are i n the results section. CBC WITH PLATELETS STAT 09/02/2021 12:53 Resul ts for this AND DIFFERENTIAL PM SHIPPING POINT INSPECTOR procedure a re in the results section. CBC WITH PLATELETS & STAT 09/02/2021 12:53 Res ults for this DIFFERENTIAL PM SHIPPING POINT INSPECTOR procedure are i n the results section. HCG QUALITATIVE STAT 09/02/2021 12:53 Results for this PM SHIPPING POINT INSPECTOR procedure are i n the results section. D DIMER QUANTITATIVE STAT 09/02/2021 12:53 Res ults for this PM SHIPPING POINT INSPECTOR procedure are i n the results section. BASIC METABOLIC PANEL STAT 09/02/2021 12:53 Re sults for this PM SHIPPING POINT INSPECTOR procedure are i n the results section. EKG 12-LEAD, TRACING STAT 09/02/2021 12:33 Res ults for this ONLY PM SHIPPING POINT INSPECTOR procedure are i n the results section. documented in this encounter Results POC US ECHO LIMITED (09/02/2021 1:03 PM SHIPPING POINT INSPECTOR) Anatomical Region Laterality Modality Other Specimen (Source) Anatomical Location Collection Method / Collectio n Time Received Time / Laterality Volume Impressions 09/02/2021 1:03 PM SHIPPING POINT INSPECTOR Limited Bedside Cardiac Ultrasound, performed and interpreted by me. Indication: Chest Pain. Parasternal long axis and parasternal ort axis views were acquired. Image quality was satisfactory. Findings: ?? Global left ventricular function appears intact. Chambers do not appear dilated. There is no evidence of free fluid withi n the pericardium. IMPRESSION: Grossly normal left ventricu lar function and chamber size. ??No pericardial effusion.. Rustam Posey MD IMG POCUS Extra Purple Top Tube (09/02/2021 12:53 PM SHIPPING POINT INSPECTOR) athologist Signature Hold Specimen JI 09/02/2021 LABORATORY 2:05 PM SHIPPING POINT INSPECTOR Specimen Anatomical Collection Method / Collection Time Recei chelsie Time (Source) Location / Volume Laterality Blood STRUCTURE OF LEFT Venipuncture / 09/02/2021 12:53 02/2 09/2021 1:04 UPPER LIMB / Unknown PM SHIPPING POINT INSPECTOR PM SHIPPING POINT INSPECTOR Unknown Mei M Angel LAYNE LAB - BLOOD ORDERABLES Performing Organization Address City/State/ZIP Code Phon e Number LABORATORY [facility] [place] [phone] Care Lab [address] 1[address] floor, Room 20[address] Extra Green Top (Bison Heparin) Tube (09/02/2021 12:53 PM SHIPPING POINT INSPECTOR) P athologist Signature Hold Specimen JIC 09/02/2021 LABORATORY 2:05 PM SHIPPING POINT INSPECTOR Specimen Anatomical Collection Method / Collection Time Recei chelsie Time (Source) Location / Volume Laterality Blood STRUCTURE OF LEFT Venipuncture / 09/02/2021 12:53 02/09/2021 1:04 UPPER LIMB / Unknown PM SHIPPING POINT INSPECTOR PM SHIPPING POINT INSPECTOR Unknown Mei M Angel LAYNE LAB - BLOOD ORDERABLES Performing Organization Address City/State/ZIP Code Phon e Number LABORATORY [facility] [place] [address] [phone] Care Lab [address] 1[address] floor, Room 20B (ABNORMAL) CBC with platelets and differential (09/02/2021 12:53 PM SHIPPING POINT INSPECTOR) Patholo gist Method Time Signature WBC Count 7.3 4.0 - 09/02/2021 LABORATORY 11.0 1:10 PM SHIPPING POINT INSPECTOR 10e3/uL RBC Count 5.06 3.80 - 09/02/2021 LABORATORY 5.20 1:10 PM SHIPPING POINT INSPECTOR 10e6/uL Hemoglobin 12.6 11.7 - 09/02/2021 LABORATORY 15.7 g/dL 1:10 PM SHIPPING POINT INSPECTOR Hematocrit 40.6 35.0 - 09/02/2021 LABORATORY 47.0 % 1:10 PM SHIPPING POINT INSPECTOR MCV 80 78 - 100 09/02/2021 LABORATORY fL 1:10 PM SHIPPING POINT INSPECTOR MCH 24.9 (L) 26.5 - 09/02/2021 LABORATORY 33.0 pg 1:10 PM SHIPPING POINT INSPECTOR MCHC 31.0 (L) 31.5 - 09/02/2021 LABORATORY 36.5 g/dL 1:10 PM SHIPPING POINT INSPECTOR RDW 13.7 10.0 - 09/02/2021 LABORATORY 15.0 % 1:10 PM SHIPPING POINT INSPECTOR Platelet Count 262 150 - 450 09/02/2021 LABORATORY 10e3/uL 1:10 PM SHIPPING POINT INSPECTOR % Neutrophils 70 % 09/02/2021 LABORATORY 1:10 PM SHIPPING POINT INSPECTOR % Lymphocytes 21 % 09/02/2021 LABORATORY 1:10 PM SHIPPING POINT INSPECTOR % Monocytes 5 % 09/02/2021 LABORATORY 1:10 PM SHIPPING POINT INSPECTOR % Eosinophils 4 % 09/02/2021 LABORATORY 1:10 PM SHIPPING POINT INSPECTOR % Basophils 0 % 09/02/2021 LABORATORY 1:10 PM SHIPPING POINT INSPECTOR % Immature 0 % 09/02/2021 LABORATORY Granulocytes 1:10 PM SHIPPING POINT INSPECTOR NRBCs per 100 0 <1 /100 09/02/2021 LABORATORY WBC 1:10 PM SHIPPING POINT INSPECTOR Absolute 5.1 1.6 - 8.3 09/02/2021 LABORATORY Neutrophils 10e3/uL 1:10 PM SHIPPING POINT INSPECTOR Absolute 1.6 0.8 - 5.3 09/02/2021 LABORATORY Lymphocytes 10e3/uL 1:10 PM SHIPPING POINT INSPECTOR Absolute 0.3 0.0 - 1.3 09/02/2021 LABORATORY Monocytes 10e3/uL 1:10 PM SHIPPING POINT INSPECTOR Absolute 0.3 0.0 - 0.7 09/02/2021 LABORATORY Eosinophils 10e3/uL 1:10 PM SHIPPING POINT INSPECTOR Absolute 0.0 0.0 - 0.2 09/02/2021 LABORATORY Basophils 10e3/uL 1:10 PM SHIPPING POINT INSPECTOR Absolute 0.0 <=0.4 09/02/2021 LABORATORY Immature 10e3/uL 1:10 PM SHIPPING POINT INSPECTOR Granulocytes Absolute NRBCs 0.0 10e3/uL 09/02/2021 LABORATORY 1:10 PM SHIPPING POINT INSPECTOR Specimen Anatomical Collection Method / Collection Time Recei chelsie Time (Source) Location / Volume Laterality Blood STRUCTURE OF LEFT Venipuncture / 09/02/2021 12:53 /09/2021 1:04 UPPER LIMB / Unknown PM SHIPPING POINT INSPECTOR PM SHIPPING POINT INSPECTOR Unknown Mei Ortiz PA-C LAB - BLOOD ORDERABLES Performing Organization Address City/State/ZIP Code [place] [address] [phone] Care Lab [address] 1[address], Room [address]B HCG qualitative Blood (09/02/2021 12:53 PM SHIPPING POINT INSPECTOR) Patholo gist Method Time Signature hCG Serum Negative Negative REINA 09/02/2021 LABORATORY Qualitative 1:22 PM SHIPPING POINT INSPECTOR Comment: This test is for screening purp oses. Results should be interpreted along with the clinical picture. Confirmation testing is available if warranted by ordering [id number], HCG Quantitative . Specimen Anatomical Collection Method / Collection Time Recei chelsie Time (Source) Location / Volume Laterality Blood STRUCTURE OF LEFT Venipuncture / 09/02/2021 12:53 02/2 09/2021 1:04 UPPER LIMB / Unknown PM SHIPPING POINT INSPECTOR PM SHIPPING POINT INSPECTOR Unknown Mei Ortiz PA-C LAB - BLOOD ORDERABLES Performing Organization Address City/State/ZIP Code Phon e Number LABORATORY [facility] [place] [phone] Care Lab [address] 1[address] floor, Room [address]B Basic metabolic panel (09/02/2021 12:53 PM SHIPPING POINT INSPECTOR) P athologist Signature Sodium 138 133 - 144 09/02/2021 LABORATORY mmol/L 1:27 PM SHIPPING POINT INSPECTOR Potassium 3.8 3.4 - 5.3 09/02/2021 LABORATORY mmol/L 1:27 PM SHIPPING POINT INSPECTOR Chloride 109 94 - 109 09/02/2021 LABORATORY mmol/L 1:27 PM SHIPPING POINT INSPECTOR Carbon Dioxide 25 20 - 32 09/02/2021 LABORATORY (CO2) mmol/L 1:27 PM SHIPPING POINT INSPECTOR Anion Gap 4 3 - 14 09/02/2021 LABORATORY mmol/L 1:27 PM SHIPPING POINT INSPECTOR Urea Nitrogen 13 7 - 30 09/02/2021 LABORATORY mg/dL 1:27 PM SHIPPING POINT INSPECTOR Creatinine 0.65 0.52 - 09/02/2021 LABORATORY 1.04 mg/dL 1:27 PM SHIPPING POINT INSPECTOR Calcium 9.0 8.5 - 10.1 09/02/2021 LABORATORY mg/dL 1:27 PM SHIPPING POINT INSPECTOR Glucose 91 70 - 99 09/02/2021 LABORATORY mg/dL 1:27 PM SHIPPING POINT INSPECTOR GFR Estimate >90 >60 09/02/2021 LABORATORY mL/min/1.7 1:27 PM SHIPPING POINT INSPECTOR 3m2 Comment: Effective June 30, 2021 eGF Rcr in adults is calculated using the 2020 CKD-EPI creatinine equation which includ es age and gender (Hermilo et al., NEJ, DOI: 10.1056/JYCMdl8660427) Specimen Anatomical Collection Method / Collection Time Recei chelsie Time (Source) Location / Volume Laterality Blood STRUCTURE OF LEFT Venipuncture / 09/02/2021 12:53 02/2 09/2021 1:04 UPPER LIMB / Unknown PM SHIPPING POINT INSPECTOR PM SHIPPING POINT INSPECTOR Unknown Mei Ortiz PA-C LAB - BLOOD ORDERABLES Performing Organization Address City/State/ZIP Code Phon e Number LABORATORY [facility] [place] [phone] Care Lab [address] 1[address], Room 20B Extra Blue Top Tube (09/02/2021 12:53 PM SHIPPING POINT INSPECTOR) P athologist Signature Hold Specimen JIC 09/02/2021 LABORATORY 2:05 PM SHIPPING POINT INSPECTOR Specimen Anatomical Collection Method / Collection Time Recei chelsie Time (Source) Location / Volume Laterality Blood STRUCTURE OF LEFT Venipuncture / 09/02/2021 12:53 02/2 09/2021 1:04 UPPER LIMB / Unknown PM SHIPPING POINT INSPECTOR PM SHIPPING POINT INSPECTOR Unknown Mei Ortiz PA-C LAB - BLOOD ORDERABLES Performing Organization Address City/State/ZIP Code Phon e Number LABORATORY [facility] [place] [address] [phone] Care Lab [address] 1[address], Room 20B D dimer quantitative (09/02/2021 12:53 PM SHIPPING POINT INSPECTOR) Analysis Performed At Patho logist Time Signature D-Dimer 0.29 0.00 - 09/02/2021 LABORATORY Quantitative 0.50 ug/mL 1:19 PM SHIPPING POINT INSPECTOR FEU Specimen Anatomical Collection Method / Collection Time Recei chelsie Time (Source) Location / Volume Laterality Blood STRUCTURE OF LEFT Venipuncture / 09/02/2021 12:53 02/2 09/2021 1:04 UPPER LIMB / Unknown PM SHIPPING POINT INSPECTOR PM SHIPPING POINT INSPECTOR Unknown Narrative LABORATORY - 09/02/2021 1:19 PM SHIPPING POINT INSPECTOR This D-dimer assay is intended for use i n conjunction with a clinical pretest probability assessment model to exclude pulmonary embolism (PE) and deep venous thrombosis (DVT) in outpatients suspecte d of PE or DVT. The cut-off value is 0.50 ug/mL FEU. Mei Ortiz PA-C LAB - BLOOD ORDERABLES Performing Organization Address City/[facility]/ZIP Code Phon e Number SH LABORATORY [facility] [place] [address] [phone] Care Lab [address] 1[address] floor, Room 20B EKG 12 lead (09/02/2021 12:33 PM SHIPPING POINT INSPECTOR) Component Value Ref Range Test Analysis Performed Pathologis t Method Time At Signature Systolic Blood mmHg RADIOLOGY Pressure RESULTS Diastolic Blood mmHg RADIOLOGY Pressure RESULTS Ventricular Rate 84 BPM RADIOLOGY RESULTS Atrial Rate 84 BPM RADIOLOGY RESULTS ME Interval 138 ms RADIOLOGY RESULTS QRS Duration 88 ms RADIOLOGY RESULTS QT 350 ms RADIOLOGY RESULTS QTc 413 ms RADIOLOGY RESULTS P [place] 55 degrees RADIOLOGY RESULTS R AXIS 42 degrees RADIOLOGY RESULTS T [place] 30 degrees RADIOLOGY RESULTS Interpretation Sinus rhythm with sinus arrhythmia RADIOLOGY ECG Normal ECG RESULTS When compared with ECG of 28-AUG-2021 10:12, No significant change was found Confirmed by GENERATED REPOR T, COMPUTER ([id number]), supervising editor news reel KATHERINE BROWN ([id number]) on 09/02/2021 1:09:46 PM Specimen Anatomical Collection Method Collection Time Receive d Time (Source) Location / / Volume Laterality 09/02/2021 12:33 09/02/2021 1:09 PM SHIPPING POINT INSPECTOR PM SHIPPING POINT INSPECTOR Mei Ortiz PA-C ECG ORDERABLES Performing Organization Address City/[facility] Phon e Number RADIOLOGY RESULTS documented in this encounter Visit Diagnoses Diagnosis Palpitations documented in this encounter Additional Health Concerns Assessment Noted Time PHQ-9 Depression Total Score: 2 04/02/2021 10:19 AM CD T documented as of this encounter Care Teams Supervisor Electronics Testing Relationship Specialty Start Date End Date Marija Edgar, PCP - General Nurse Practitioner 04/30/20 PURCHASING MANAGER/SALES DRAWING TRACER [address] [place] [address] Lita Oseguera Personal Advocate & 02/28/20 Liaison (PAL) Marija Edgar, Assigned PCP 06/08/20 PURCHASING MANAGER/SALES DRAWING TRACER [address] [place] [address] Mynor Broussard MD Assigned Surgical Provider 06/01/20 [address] [place] [address] Mauri, Assigned Neuroscience 06/04/20 MD Keisha Provider 909 [place] [address] Galo Burrell MD Assigned Heart and 10/05/20 04/02/22 6405 [facility] LISETH Ward Vascular Provider [address] [place] [address] Diana Desir, Pharmacist Pharmacist 04/17/21 [facility] [address] [place], [place] [address] Rain Galaviz Physician Colorist Dyer Dermatology 04/28/21 ROVERTO Paredes 5 [facility] [address] [place], [place] [phone] Summer Lara MD Assigned OBGYN Provider 05/31/21 03/12/22 [address] [place], [place] [address] Tavia Wyatt MD MD Dermatology 07/14/21 Johnny Murillo Assigned Musculoskeletal 08/30/21 03/17/22 MD Ish Provider [address] [place], [place] [phone] documented as of this encounter
--- OUTSIDE RECORDS SUMMARY | 2022-04-28 01:09 | XMS_ITS | Encounter Summary ---
:2000 Author Organization [facility] Address [address] [place] [address] Care Team Providers Name Role Phone Lita Oseguera Unavailable Unavailable Marija Edgar FLIGHT TEACHER REAL ESTATE PROFESSIONAL Primary Care Provider [phone] Marija Edgar APRN REAL ESTATE PROFESSIONAL Unavailable Mynor Broussard MD Unavailable Keisha Dotson MD Unavailable Galo Burrell MD Unavailable Diana Desir [facility] Unavailable Rain Galaviz PA-C Unavailable Summer Lara MD Unavailable Tavia Wyatt MD Unavailable Unavailable Johnny Murillo MD Unavailable [phone] Erica Farrell FLIGHT TEACHER REAL ESTATE PROFESSIONAL Unavailable [phone] Teresita Bean [facility] Unavailable [phone] Tavia Wyatt MD Unavailable Unavailable Diana Desir [facility] Unavailable Rich Barrett MD Unavailable Neil Kent MD Unavailable Roney Story DPM Unavailable BudErica FLIGHT TEACHER REAL ESTATE PROFESSIONAL Unavailable [phone] ThangDiana [facility] Unavailable Encounter Details Date Type Department Care Team Description 09/02/2021 Documentation Only INTERFACED REPORT Unknown, Provider Social History Tobacco Use Types Packs/Day Years [...] week 09/22/2021 How often do you attend shinto or nondenominational services? Never 09/22/2021 Do you belong to any clubs or organizations such as No 09/22/2021 shinto groups, unions, fraternal or athletic groups, or [...] with No / Unsure 09/02/2021 12:26 PM JET HANDLER someone who was confirmed or suspected to have Coronavirus / COVID-19? documented as of this encounter Plan of Treatment Upcoming Encounters Date Type Specialty Care Team Description 04/28/2022 Office Visit Family Practice Anthony Doe PA-C [address] [place], [place] [phone] (Wo rk) 05/03/2022 Office Visit Dermatology Neil Kent M D [address] [place] [phone] (Wo rk) 05/05/2022 Office Visit Optometry Yeny David, [place] [address] [facility] [address] [place] [phone] (Wo rk) 05/11/2022 Virtual Visit Pharm D Diana Desir , [facility] [address] [place], [place] [address] (Wo rk) 05/14/2022 Office Visit Cardiology Livan Sharif MD [address] [facility] [address] [place], [place] [address] (Wo rk) 05/31/2022 Office Visit [facility] Valery Veronica PA-C 909 [place], [place] [address] (Wo rk) documented as of this encounter [...] documented as of this encounter Care Teams Plum Packer Relationship Specialty Start Date End Date Marija Edgar, PCP - General Nurse Practitioner 04/30/20 FLIGHT TEACHER REAL ESTATE PROFESSIONAL [address] [place] [address] Lita Oseguera Personal Advocate & 02/28/20 Liaison (PAL) Marija Edgar, Assigned PCP 06/08/20 FLIGHT TEACHER REAL ESTATE PROFESSIONAL [address] [place] [address] Mynor Broussard MD Assigned Surgical 06/01/20 11/28/21 [address] [place] [address] Mauri, Melody Neuroscience 06/04/20 MD Keisha Provider 909 [place], [place] [address] Galo Burrell MD Assigned Heart and 10/05/20 04/02/22 [address] [facility] Vascular Provider [address] [place], [place] [address] Diana Desir, Pharmacist Pharmacist 04/17/21 [facility] [address] [place] [address] Rain Galaviz Physician Bean Picker Machine Operator Dermatology 04/28/21 ROVERTO Paredes 775 [facility] DAN[address] 250 [facility] [place] [phone] Summer Lara MD Assigned OBGYN Provider 05/31/21 03/12/[address] [place], [place] [address] Tavia Wyatt MD Dermatology 07/14/21 Johnny Medrano Assigned Musculoskeletal 08/30/21 03/17/22 MD Ish Provider [address] [place], [place] [address] Erica Farrell Nurse Practitioner Cardiovascular Disease 09/09/21 ARLENE Guidry REAL ESTATE PROFESSIONAL 6405 [facility] [address] [place], [place] [address] Teresita Bean Pharmacist Pharmacist 09/24/21 09/29/21 [facility] [address] [facility] [address] [place] [phone] Tavia Wyatt, Assigned Surgical 11/29/21 Provider Diana Desir, Assigned MTM Pharmacist 01/02/22 03/26/22 [facility] 3033 [place], [place] [address] Rich Barrett Physician Ophthalmology 01/21/22 Gerson Reyes MD 516 [facility] [address]A [place], [place] [phone] Neil Kent MD MD Dermatology 02/24/22 500 [facility] [address] [place], [place] [phone] Roney Story, Assigned Musculoskeletal 03/20/22 DPM Provider [address] [facility] [address] [place], [place] [address] Erica Farrell Assigned Heart and 04/03/22 ARLENE Guidry REAL ESTATE PROFESSIONAL Vascular Provider 1700 [place] [address] Diana Desir, Assigned MTM Pharmacist 04/07/22 [facility] 30[address] [place], [place] [address] documented as of this encounter
--- OUTSIDE RECORDS SUMMARY | 2022-04-28 01:09 | XMS_ITS | Encounter Summary ---
:2000 Author Organization [facility] Address [address] [place] [address] Care Team Providers Name Role Phone Lita Oseguera Unavailable Unavailable Marija Edgar APRN ARTIFICIAL MARBLE WORKER Primary Care Provider [phone] Marija Edgar APRN ARTIFICIAL MARBLE WORKER Unavailable Mynor Broussard MD Unavailable Keisha Dotson MD Unavailable Galo Burrell MD Unavailable Diana Desir [facility] Unavailable Rain Galaviz PA-C Unavailable [phone] Summer Lara MD Unavailable Tavia Wyatt MD Unavailable Unavailable Johnny Murillo MD Unavailable [phone] Erica Farrell RESEARCH RECRUITER ARTIFICIAL MARBLE WORKER Unavailable [phone] Teresita Bean [facility] Unavailable [phone] Encounter Details Date Type Department Care Team Description 09/23/2021 [facility] Adam Desir, [facility] 7604 [facility] [address] [place] [address] [place], [place] [address] [phone] Social History Tobacco Use Types Packs/Day Years [...] week 09/22/2021 How often do you attend pentecostal or amish services? Never 09/22/2021 Do you belong to any clubs or organizations such as No 09/22/2021 pentecostal groups, unions, fraternal or athletic groups, or [...] this encounter Miscellaneous Notes Telephone Encounter - Candace Mitchell, PharmD - 09/23/2021 12:52 PM CDT Spoke to Kim. She was recommended by Diana to taper off sertraline and to start paroxetine. Shehas not made any changes since she was nervous about this and was a bit unclear about the instructions on when to start paxil. She saw psych today. Seeing therapist tomorrow. She was in the ED and given lorazepam and it was refilled by psych today as well. They are aware that she is breast feeding and was told by psych it would be ok to use, but watch child for increased fatige. Psych did agree about the taper to paxil. I reviewed Diana's note and recommended that the patient decrease sertraline to 150 mg until she sees Diana and hold off starting paxil until she is on a lower dose of sertraline to lessen the risk of serotonin syndrome. Kim seemed to think that she was to start paxil earlier in the taper and she was concerned about being on the less sertraline and having worsening anxiety. Therefore, she will hold off on the taper until she sees Diana next week. Ok to use lorazepam PRN until then. Telephone Encounter - Brea Nguyen - 09/23/2021 12:17 PM CDT Kim Arias called with questions on how to take her medication. I see that Diana is out so if whoever is covering could give her a call back to answer her question. Thanks, Sakshi Nguyen [facility] Coordinator documented in this encounter Plan of Treatment Upcoming Encounters Date Type Specialty Care Team Description 04/28/2022 Office Visit Family Practice Anthony Doe, [address] [address] [place] [address] (Jefferson carlson) 05/03/2022 Office Visit Dermatology Neil Kent M D 500 [place], [place] [address] (Jefferson carlson) 05/05/2022 Office Visit Optometry Frankie Nataliemohamud Garcia, OD 3305 [facility] [place] [phone] (Wo rk) 05/11/2022 Virtual Visit Pharm Diana Eckert , [facility] [address] [place] [address] (Wo rk) 05/14/2022 Office Visit Cardiology Livan Sharif MD [address], [address] [place], [place] [address] (Wo rk) 05/31/2022 Office Visit Family Practice Valery Veronica , PA-C [address] [place] [phone] (Wo rk) documented as of this encounter Visit Diagnoses Not on filedocumented in this encounter Additional Health Concerns Assessment Noted Time PHQ-9 Depression Total Score: 2 04/02/2021 10:19 AM CD T documented as of this encounter Care Teams Gas Desulfurizer Relationship Specialty Start Date End Date Marija Edgar, PCP - General Nurse Practitioner 04/30/20 RESEARCH RECRUITER ARTIFICIAL MARBLE WORKER [address] [place] [address] Lita Oseguera Personal Advocate & 02/28/20 Liaison (PAL) Marija Edgar, Assigned PCP 06/08/20 RESEARCH RECRUITER ARTIFICIAL MARBLE WORKER [address] [place] [address] Mynor Broussard MD Assigned Surgical 06/01/20 11/28/21 [address] Provider [address] [place] [address] Mauri, Assigned Neuroscience 06/04/20 MD Keisha Provider 9 [place], [place] [address] Galo Burrell MD Assigned Heart and 10/05/20 04/02/22 [address] Vascular Provider [address] [place] [id number] Diana Desir, Pharmacist Pharmacist 04/17/21 [facility] [address] [place], [place] [address] Rain Galaviz Physician Head Start Coordinator Dermatology 04/28/21 [address] [facility] [address] [place] [facility] [place] [phone] Summer Lara MD Assigned OBGYN Provider 05/31/21 03/12/[address] [place], [place] [address] Tavia Wyatt MD Dermatology 07/14/21 Johnny Medrano Assigned Musculoskeletal 08/30/21 03/17/22 MD Ish Provider [address] [place], [place] [phone] Erica Farrell Nurse Practitioner Cardiovascular Disease 09/09/21 ARLENE Guidry ARTIFICIAL MARBLE WORKER [address] [place] [id number] Teresita Bean Pharmacist Pharmacist 09/24/21 09/29/21 Walter, [facility] [address] [place] [address] documented as of this encounter
--- OUTSIDE RECORDS SUMMARY | 2022-04-28 01:10 | XMS_ITS | Encounter Summary ---
:2000 Author Organization [place] Address [address] [place] [address] Care Team Providers Name Role Phone Lita Oseguera Unavailable Unavailable Marija Edgar APRN BOARD MIXER TENDER Primary Care Provider [phone] Marija Edgar APRN BOARD MIXER TENDER Unavailable Mynor Broussard MD Unavailable Keisha Dotson MD Unavailable Galo Burrell MD Unavailable Diana Desir [facility] Unavailable Rain Galaviz PA-C Unavailable Summer Lara MD Unavailable Tavia Wyatt MD Unavailable Unavailable Reason for Visit Reason Onset Date Comments *-*INCOMING RECORDS*-* 08/20/2021 Encounter Details Date Type Department Care Team Description 08/20/2021 PRE VISIT [place] [facility] Johnny Murillo *-*[facility] RECORDS*-* Orthopedic Clinic MD Ish [place] [id number] [address] [place], [place] 4th Floor [address] [place], [place] [phone] (Wo rk) [address] [phone] Social History Tobacco Use Types Packs/Day Years [...] week 09/22/2021 How often do you attend latter-day or jehovah's witness services? Never 09/22/2021 Do you belong to any clubs or organizations such as No 09/22/2021 latter-day groups, unions, fraternal or athletic groups, or [...] been in contact with No / Unsure 08/11/2021 8:54 AM DECAL APPLIER someone who was confirmed or suspected to have Coronavirus / COVID-19? documented as of this encounter Miscellaneous Notes Telephone Encounter - Sonam Colon CMA - 08/17/2021 9:19 AM CST RECORDS RECEIVED FROM: C4 pain / Dr. Marija Edgra / [facility] / x-rays DATE RECEIVED: Aug 20, 2021 NOTES STATUS DETAILS OFFICE NOTE from referring provider Internal Marija Edgar APRN BOARD MIXER TENDER MEDICATION LIST Internal MRI Received 05/29/20-BRAIN CT SCAN Internal 08/03/21 XRAYS (IMAGES & REPORTS) Internal 07/18/21-CHEST L APPLIER documented in this encounter Plan of Treatment Upcoming Encounters Date Type Specialty Care Team Description 04/28/2022 Office Visit Family Practice Anthony Doe PAUcheC [address] [place], [place] [phone] (Wo rk) 05/03/2022 Office Visit Dermatology Neil Kent M D [address] [place] [phone] (Wo rk) 05/05/2022 Office Visit Optometry Yeny David, OD [address] [facility] [address] (Wo rk) 05/11/2022 Virtual Visit Pharm D Diana Desir , [facility] [address] [place], [place] [address] (Wo rk) 05/14/2022 Office Visit Cardiology Livan Sharif MD 6405 [facility] [address] [place], [place] [address] (Wo rk) 05/31/2022 Office Visit Family Practice Valery Veronica PA-C 909 [place], [place] [address] (Wo rk) documented as of this encounter Visit Diagnoses Not on filedocumented in this encounter Additional Health Concerns Assessment Noted Time PHQ-9 Depression Total Score: 2 04/02/2021 10:19 AM CD T documented as of this encounter Care Teams Energy Systems Laboratory Director Relationship Specialty Start Date End Date Marija Edgar APRN PCP - General Nurse Practitioner 04/30/20 BOARD MIXER TENDER [address] [place] [address] Lita Oseguera Personal Advocate & 02/28/20 Liaison (PAL) Marija Edgar APRN Assigned PCP 06/08/20 BOARD MIXER TENDER [address] [place] [address] Mynor Broussard MD Assigned Surgical 06/01/20 11/28/[address] DAN[address] Provider 500 [place] [address] Keisha Dotson, Assigned Neuroscience 06/04/20 MD Provider 909 [place] [address] Galo Burrell MD Assigned Heart and 10/05/20 04/02/[address] [place] [address] Diana Deisr, [facility] Pharmacist Pharmacist 04/17/[address] [place] [address] Rain Galaviz Physician Optical Model Maker And Tester Dermatology 04/28/21 ROVERTO Paredes [address] [facility] [address] [place] [address] Summer Lara MD Assigned OBGYN Provider 05/31/21 03/12/[address] [place], [place] [address] Tavia Wyatt MD MD Dermatology 07/14/21 documented as of this encounter
--- OUTSIDE RECORDS SUMMARY | 2022-04-28 01:10 | XMS_ITS | Encounter Summary ---
:2000 Author Organization [facility] Address [address] [place] [address] Care Team Providers Name Role Phone Lita Oseguera Unavailable Unavailable Marija Edgar APRN FIELD CROP TECHNICAL OFFICER Primary Care Provider [phone] Marija Edgar APRN FIELD CROP TECHNICAL OFFICER Unavailable Mynor Broussard MD Unavailable Keisha Dotson MD Unavailable Galo Burrell MD Unavailable Diana Desir [facility] Unavailable Rain Galaviz PA-C Unavailable [phone] Summer Lara MD Unavailable Tavia Wyatt MD Unavailable Unavailable Encounter Details Date Type Department Care Team Description 08/20/2021 Travel Social History Tobacco Use Types Packs/Day [...] How often do you attend presybeterian or congregational services? Never 09/22/2021 Do you belong to [...] you been in contact Unable to assess 08/20/2021 8:09 AM PIPE CHIPPER with someone who was confirmed or suspected to have Coronavirus / COVID-19? documented as of this encounter Plan of Treatment Upcoming Encounters Date Type Specialty Care Team Description 04/28/2022 Office Visit Family Practice Anthony Doe, [address] [address] [place], [place] [phone] (Wo rk) 05/03/2022 Office Visit Dermatology Neil Kent M D 500 [place], [place] [address] (Wo rk) 05/05/2022 Office Visit Optometry Yeny David, OD [address] [facility] [address] [place] [phone] (Jefferson carlson) 05/11/2022 Virtual Visit Pharm D Diana Desir , [facility] [address] [place], [place] [address] (Wo rk) 05/14/2022 Office Visit Cardiology Livan Sharif MD [address], [address] [place] [address]995 (Wo rk) 05/31/2022 Office Visit Family Practice Valery Veronica , PA-C 909 [place], [place] [address] (Wo rk) documented as of this encounter Visit Diagnoses Not on filedocumented in this encounter Additional Health Concerns Assessment Noted Time PHQ-9 Depression Total Score: 2 04/02/2021 10:19 AM CD T documented as of this encounter Care Teams Central Supply Worker Relationship Specialty Start Date End Date Marija Edgar APRN PCP - General Nurse Practitioner 04/30/20 FIELD CROP TECHNICAL OFFICER [address] [place] [address] Lita Oseguera Personal Advocate & 02/28/20 Liaison (PAL) Marija Edgar APRN Assigned PCP 06/08/20 FIELD CROP TECHNICAL OFFICER [address] [place] [address] Mynor Broussard MD Assigned Surgical 06/01/20 11/28/21 [address] Provider 500 [place] [address] Trevor-Keisha Peter, Assigned Neuroscience 06/04/20 MD Provider [address] [place], [place] [address] Galo Burrell MD Assigned Heart and 10/05/20 04/02/22 [address] Vascular Provider [place] [address] Diana Desir, [facility] Pharmacist Pharmacist 04/17/21 [address] [place], [place] [address] Rain Galaviz Physician Sales Clerk Food Dermatology 04/28/21 ROVERTO Paredes [address] [facility] [address] [place], [place] [phone] Summer Lara MD Assigned OBGYN Provider 05/31/21 03/12/[address] [place], [place] [address] Tavia Wyatt MD MD Dermatology 07/14/21 documented as of this encounter
--- OUTSIDE RECORDS SUMMARY | 2022-04-28 01:10 | XMS_ITS | Encounter Summary ---
:2000 Author Organization [place] Address [address] [place] [address]. [place] [address] Care Team Providers Name Role Phone Lita Oseguera Unavailable Unavailable Marija Edgar APRN BLADE BONER Primary Care Provider [phone] Marija Edgar APRN BLADE BONER Unavailable Mynor Broussard MD Unavailable Keisha Dotson MD Unavailable Galo Burrell MD Unavailable Diana Desir [facility] Unavailable Rain Galaviz PA-C Unavailable [phone] Summer Lara MD Unavailable Tavia Wyatt MD Unavailable Unavailable Reason for Visit Reason Comments Urgent Care Vaginal Problem IUD out of place, painful in tercourse, mild vaginal bleeding for 7 days Encounter Details Date Type Department Care Team Description 08/21/2021 Office Visit [facility] Mani Gentile M D Vaginal discharge (Primary Dx); Urgent Care [address] Irregular menses [address] [facility] [place] [id number] Social History Tobacco Use Types Packs/Day Years [...] How often do you attend confucianism or mormonism services? Never 09/22/2021 Do you belong to [...] been in contact with No / Unsure 08/21/2021 6:39 PM SPUD DRILLER someone who was confirmed or suspected to have Coronavirus / COVID-19? documented as of this encounter Last Filed Vital Signs Vital Sign Reading Time Taken Comments Blood Pressure 112/60 08/21/2021 6:39 PM SPUD DRILLER Pulse 86 08/21/2021 6:39 PM SPUD DRILLER Temperature 36.3 ??C (97.4 ??F) 08/21/2021 6:39 PM SPUD DRILLER Respiratory Rate - - Oxygen Saturation 97% 08/21/2021 6:39 PM SPUD DRILLER Inhaled Oxygen Concentration - - Weight 83.9 kg (185 lb) 08/21/2021 6:39 PM SPUD DRILLER Height - - Body Mass Index 29.86 07/31/2021 3:01 PM SPUD DRILLER documented in this encounter Progress Notes Mani Gentile MD - 08/21/2021 6:35 PM CST SUBJECTIVE: Chief Complaint Patient presents with ??? Urgent Care ??? Vaginal Problem IUD out of place, painful intercourse, mild vaginal bleeding for 7 days Kim Johnson is a 21 year old female who presents with a chief complaint of vaginal bleeding, painful intercourse. Has IUD currently but is concerns that may have shifted, was having sex and developed pain with a different position. States that had IUD that practically expelled itself but thought may have been thatit was placed too soon after having her baby. Endorsed mild vaginal bleeding for the past 7 days, tried to check if there was a tampon but did not see one. Last pap screen normal per patient. Past Medical History: Diagnosis Date ??? Anxiety [...] by mouth daily 90 tablet 1 ??? omeprazole (PRILOSEC) [address] capsule Take 1 capsule (40 mg) by mouth daily 90 capsule 0 ??? Vit-Fe Fumarate-FA ( MULTIVITAMIN W/IRON) 27-0.8 MG tablet Take 1 tablet by mouth daily 90 tablet 3 ??? sertraline (ZOLOFT) 100 MG tablet Take 2 tablets (200 mg) by mouth daily 180 tablet 1 ??? tacrolimus (PROTOPIC) 0.1 % external ointment Apply thin layer to psoriasis on thinner skin up to twice daily as needed. 60 g 11 Social History Tobacco Use ??? Smoking status: Former Smoker Packs/day: 1.00 Types: Other Quit date: 12/07/2019 Years since quittin.7 ??? Smokeless tobacco: Never Used Substance Use Topics ??? Alcohol use: Not Currently ROS: Review of systems negative except as stated above. EXAM: BP 112/60 (BP Location: Right arm) Pulse 86 Temp 97.4 ??F (36.3 ??C) (Tympanic) Wt 83.9 kg (185 lb) SpO2 97% BMI 29.86 kg/m?? GENERAL APPEARANCE: healthy, alert and no distress GENITAL: normal external labia, vaginal mucosa normal, cervix visualized and slightly friable, strings seen in os, no protruding IUD noted. No foreign body in vaginal vault PSYCH: alert, affect bright Results for orders placed or performed in visit on 08/21/21 HCG Qual, Urine ([id number]) Status: Normal Result Value Ref Range hCG Urine Qualitative Negative Negative Wet prep - lab collect Status: Normal Specimen: Vagina; Swab Result Value Ref Range Trichomonas Absent Absent Yeast Absent Absent Clue Cells Absent Absent WBCs/high power field None None ASSESSMENT/PLAN: (N89.8) Vaginal discharge (primary encounter diagnosis) Plan: Wet prep - lab collect (N92.6) Irregular menses Plan: HCG Qual, Urine ([id number]) Reassurance given, discussed that labs were negative and no foreign body in vaginal vault. Encouragetylenol for discomfort at this time and to monitor symptoms. Reviewed that IUD can shift but does not appear to be protruding thru enough to require removal today, recommend to follow up with HOOP COILING 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 orprimary provider for recheck, can obtain ultrasound to verify if IUD had dropped lower in uterus if still having discomfort. Follow up with PCP or HOOP COILING 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 for recheck if not improving in 1 week Mani Gentile MD August 21, 2021 7:34 PM DRILLER documented in this encounter Plan of Treatment Upcoming Encounters Date Type Specialty Care Team Description 04/28/2022 Office Visit Family Practice Anthony Doe PA-C [address] [place], [place] [phone] (Wo rk) 05/03/2022 Office Visit Dermatology Neil Kent M D [address] [place], [place] [address] (Wo rk) 05/05/2022 Office Visit Optometry Yeny David, OD [address] [facility] [address] (Wo rk) 05/11/2022 Virtual Visit Pharm D Diana Desir , [facility] [address] [place], [place] [address] (Wo rk) 05/14/2022 Office Visit Cardiology Livan Sharif MD [address] [facility], [address] [place], [place] [phone] (Wo rk) 05/31/2022 Office Visit [facility] Valery Veronica PA-C [address] [place] [address] (Wo rk) documented as of this encounter Procedures Procedure Name Priority Date/Time Associated Comments Diagnosis HCG QUALITATIVE URINE Routine 08/21/2021 6:58 PM Irregular men ses Results for this SPUD DRILLER procedure are i n the results section. WET PREPARATION Routine 08/21/2021 6:57 PM Vaginal discharge R esults for this SPUD DRILLER procedure are i n the results section. documented in this encounter Results HCG Qual, Urine ([id number]) (08/21/2021 6:58 PM SPUD DRILLER) [facility] Method Time Signature hCG Urine Negative Negative [facility] 08/21/2021 [facility] Qualitative 7:09 PM SPUD DRILLER Comment: This test is for screening purp oses. Results should be interpreted along with the clinical picture. Confirmation testing is available if warranted by ordering [id number], HCG Quantitative . Specimen Anatomical Collection Method Collection Time Receive d Time (Source) Location / / Volume Laterality Urine URINE SPECIMEN / Non-blood 08/21/2021 6:58 PM 08/21 6:58 Unknown Collection / SPUD DRILLER PM SPUD DRILLER Unknown Mani Gentile MD LAB - URINE ORDERABLES Performing Organization Address City/[facility]/ZIP Code Phon e Number [place] [address] Lab [address] [place] Lab (no room number, 1st floor of clinic) [place] [address], [facility] [address] [facility] [place] room number, 1st floor of clinic) Wet prep - lab collect (08/21/2021 6:57 PM SPUD DRILLER) Analysis Performed At Patho logist Time Signature Trichomonas Absent Absent [facility] 08/21/2021 [facility] 7:10 PM SPUD DRILLER Yeast Absent Absent [facility] 08/21/2021 [facility] 7:10 PM SPUD DRILLER Clue Cells Absent Absent [facility] 08/21/2021 [facility] 7:10 PM SPUD DRILLER WBCs/high power None None [facility] 08/21/2021 LABORATORY field 7:10 PM SPUD DRILLER Specimen Anatomical Collection Method Collection Time Receive d Time (Source) Location / / Volume Laterality Swab VAGINAL STRUCTURE Non-blood 08/21/2021 6:57 PM 08/11 6:58 / Unknown Collection / SPUD DRILLER PM SPUD DRILLER Unknown Mani Gentile MD LAB - MICRO GENERAL ORDERABL ES Performing Organization Address City/[facility] Phon e Number [place] [address] Lab [address] [facility] [place] [facility] (no room number, 1st floor of clinic) [place] [address], [facility] [address] [facility] Lab (no room number, 1st floor of clinic) documented in this encounter Visit Diagnoses Diagnosis Vaginal discharge - Primary Leukorrhea, not specified as infective Irregular menses Irregular menstrual cycle documented in this encounter Additional Health Concerns Assessment Noted Time PHQ-9 Depression Total Score: 2 04/02/2021 10:19 AM CD T documented as of this encounter Care Teams Foam Caster Relationship Specialty Start Date End Date Marija Edgar APRN PCP - General Nurse Practitioner 04/30/20 BLADE BONER [address] [place], [place] [phone] Lita Oseguera Personal Advocate & 02/28/20 Liaison (PAL) Marija Edgar APRN Assigned PCP 06/08/20 BLADE BONER [address] [place], [place] [phone] Mynor Broussard MD Assigned Surgical 06/01/20 11/28/[address] [place] Provider [address] [place], [place] [address] Trevor-Keisha Peter, Assigned Neuroscience 06/04/20 MD Provider [address] [place], [place] [address] Galo Burrell MD Assigned Heart and 10/05/20 04/02/[address] Vascular Provider [place], [place] [address] Diana Desir, [facility] Pharmacist Pharmacist 04/17/21 [address] [place] [address] Rain Galaviz Physician Manager Performance Improvement Dermatology 04/28/21 ROVERTO Paredes [address] [facility] [address] [place] [address] Summer Lara MD Assigned OBGYN Provider 05/31/21 03/12/[address] [place] [address] Tavia Wyatt MD MD Dermatology 07/14/21 documented as of this encounter
--- OUTSIDE RECORDS SUMMARY | 2022-04-28 01:10 | XMS_ITS | Encounter Summary ---
:2000 Author Organization [place] Address [address] [place] [address] Care Team Providers Name Role Phone Lita Oseguera Unavailable Unavailable Marija Edgar APRN PROVIDER RELATIONS SPECIALIST Primary Care Provider [phone] Marija Edgar APRN PROVIDER RELATIONS SPECIALIST Unavailable Mynor Broussard MD Unavailable Keisha Dotson MD Unavailable Galo Burrell MD Unavailable Diana Desir [facility] Unavailable Rain Galaviz PA-C Unavailable [phone] Summer Lara MD Unavailable Tavia Wyatt MD Unavailable Unavailable Encounter Details Date Type Department Care Team Description 08/21/2021 Travel Social History Tobacco Use Types Packs/Day [...] week 09/22/2021 How often do you attend congregational or sikhism services? Never 09/22/2021 Do you belong to any clubs or organizations such as No 09/22/2021 congregational groups, unions, fraternal or athletic groups, or [...] place to sleep or slept in a prison (including now)? Education Answer Date Recorded What is the highest level of school you have completed or 12 th grade 08/07/2020 the highest degree you have received? Sex Assigned at Date Recorded Female 03/02/2021 5:45 PM CDT COVID-19 Exposure Response Date Recorded In the last month, have you been in contact with No / Unsure 08/21/2021 6:39 PM HYDRATE CONTROL TENDER someone who was confirmed or suspected to have Coronavirus / COVID-19? documented as of this encounter Plan of Treatment Upcoming Encounters Date Type Specialty Care Team Description 04/28/2022 Office Visit Family Practice Anthony Doe, [address] [address] [place], [place] [phone] (Wo rk) 05/03/2022 Office Visit Dermatology Neil Kent M D [address] [place], [place] [address] (Wo rk) 05/05/2022 Office Visit Optometry Yeny David, OD [address] [facility] [address] [place] [phone] (Jefferson carlson) 05/11/2022 Virtual Visit Pharm D Diana Desir , [facility] [address] [place], [place] [address] (Wo rk) 05/14/2022 Office Visit Cardiology Livan Sharif MD [address], [address] [place] [address] (Wo rk) 05/31/2022 Office Visit Family Practice Valery Veronica , PA-C [address] [place] [address] (Wo rk) documented as of this encounter Visit Diagnoses Not on filedocumented in this encounter Additional Health Concerns Assessment Noted Time PHQ-9 Depression Total Score: 2 04/02/2021 10:19 AM CD T documented as of this encounter Care Teams Director Medicaid Relationship Specialty Start Date End Date Marija Edgar APRN PCP - General Nurse Practitioner 04/30/20 PROVIDER RELATIONS SPECIALIST [address] [place] [address] Lita Oseguera Personal Advocate & 02/28/20 Liaison (PAL) Marija Edgar APRN Assigned PCP 06/08/20 PROVIDER RELATIONS SPECIALIST [address] [place] [address] Mynor Broussard MD Assigned Surgical 06/01/20 11/28/21 [address] [place] Provider [address] [place] [address] Trevor-Keisha Peter, Assigned Neuroscience 06/04/20 MD Provider [address] [place] [address] Galo Burrell MD Assigned Heart and 10/05/20 04/02/22 [address] Vascular Provider [place] [address] Diana Desir, [facility] Pharmacist Pharmacist 04/17/21 [address] [place], [place] [address] Rain Galaviz Physician Material Chaser Dermatology 04/28/21 R[address]ERT[address]aredes [address] [facility] [address] [place], [place] [phone] Summer Lara MD Assigned OBGYN Provider 05/31/21 03/12/[address] [place], [place] [phone] Tavia Wyatt MD MD Dermatology 07/14/21 documented as of this encounter
--- OUTSIDE RECORDS SUMMARY | 2022-04-28 01:10 | XMS_ITS | Encounter Summary ---
:2000 Author Organization [place] Address [address] [place] [address] Care Team Providers Name Role Phone Lita Oseguera Unavailable Unavailable Marija Edgar APRN ROUTE CARRIER Primary Care Provider [phone] Marija Edgar APRN ROUTE CARRIER Unavailable Mynor Broussard MD Unavailable Keisha Dotson MD Unavailable Galo Burrell MD Unavailable Diana Desir [facility] Unavailable Rain Galaviz PA-C Unavailable [phone] Summer Lara MD Unavailable Tavia Wyatt MD Unavailable Unavailable Encounter Details Date Type Department Care Team Description 08/27/2021 Orders Only M [facility] Heart Alexus Avalos S [place] (supraventricular Clinic Dee RN tachycardia) (H) [address] [facility] (Primary Dx) [facility] [address] [place] [address] Social History Tobacco Use Types [...] How often do you attend latter-day or caodaism services? Never 09/22/2021 Do you [...] been in contact with No / Unsure 08/26/2021 4:03 PM AIDS COUNSELOR someone who was confirmed or suspected to have Coronavirus / COVID-19? documented as of this encounter Plan of Treatment Upcoming Encounters Date Type Specialty Care Team Description 04/28/2022 Office Visit Family Practice Anthony Doe PA-C [address] [place], [place] [phone] (Wo rk) 05/03/2022 Office Visit Dermatology Neil Kent M D [address] [place] [phone] (Wo rk) 05/05/2022 Office Visit Optometry Yeny David, OD [address] [facility] [address] [place] [phone] (Wo rk) 05/11/2022 Virtual Visit Pharm Diana Eckert , [facility] [address] [place] [address] (Wo rk) 05/14/2022 Office Visit Cardiology Livan Sharif MD [address] [place], [place] [address] (Wo rk) 05/31/2022 Office Visit Family Practice Valery Veronica , PA-C [address] [place] [phone] (Wo rk) documented as of this encounter Visit Diagnoses Diagnosis SVT (supraventricular tachycardia) (H) - Primary Other specified cardiac dysrhythmias documented in this encounter Additional Health Concerns Assessment Noted Time PHQ-9 Depression Total Score: 2 04/02/2021 10:19 AM CD T documented as of this encounter Care Teams Filling Station Equipment Mechanic Relationship Specialty Start Date End Date Marija Edgar APRN PCP - General Nurse Practitioner 04/30/20 ROUTE [address]RI[address] [address] [place] [address] Lita Oseguera Personal Advocate & 02/28/20 Liaison (PAL) Marija Edgar APRN Assigned PCP 06/08/20 ROUTE CARRI[address] [address] [place], [place] [phone] Mynor Broussard MD Assigned Surgical 06/01/20 11/28/21 [address] Provider [address] [place], [place] [address] Trevor-Keisha Peter, Assigned Neuroscience 06/04/20 MD Provider 9 [place] [address] Galo Burrell MD Assigned Heart and 10/05/20 04/02/22 [address] [facility] [address] [place] [address] Diana Desir, [facility] Pharmacist Pharmacist 04/17/21 [address] [place] [address] Rain Galaviz Physician Distribution Center Administrator Dermatology 04/28/21 R[address]ERTO Paredes [address] [facility] [address] [place], [place] [phone] Summer Lara MD Assigned OBGYN Provider 05/31/21 03/12/[address] [place], [place] [address] Tavia Wyatt MD MD Dermatology 07/14/21 documented as of this encounter
--- OUTSIDE RECORDS SUMMARY | 2022-04-28 01:10 | XMS_ITS | Encounter Summary ---
:2000 Author Organization [place] Address [address] [place] [address]. [place] [address] Care Team Providers Name Role Phone Lita Oseguera Unavailable Unavailable Marija Edgar APRN FAMILY CONSUMER SCIENTIST Primary Care Provider [phone] Marija Edgar APRN [facility] Unavailable Mynor Broussard MD Unavailable Keisha Dotson MD Unavailable Galo Burrell MD Unavailable Diana Desir [facility] Unavailable Rain Galaviz PA-C Unavailable Summer Lara MD Unavailable Tavia Wyatt MD Unavailable Unavailable Encounter Details Date Type Department Care Team Description 08/11/2021 Telephone [facility] Marija Edgar APRN [facility] [address] [phone] [place] [address] (Wo rk) Social History Tobacco Use Types [...] How often do you attend yarsani or yarsanism services? Never 09/22/2021 Do you belong to [...] with No / Unsure 08/11/2021 8:54 AM JIG MILL OPERATOR someone who was confirmed or suspected to have Coronavirus / COVID-19? documented as of this encounter Miscellaneous Notes Telephone Encounter - Lita Oseguera - 08/11/2021 10:28 AM CST Pt called regarding CT scan results. Pt stated that she had been told that there was lesions on her spine but was directed to follow up with PCP. Pt informed that Provider is currently out of clinic but that I would touch base with one of her colleges. After discussion with consulting Provider, Pt informed that her next steps should be with ortho and that an order would be placed. Pt told clinic would call directly to set up apt. Pt denied any further questions or concerns. Hilda Troncoso-EMT Clinic Health Guide, SB 4 PAL MILL OPERATOR documented in this encounter Plan of Treatment Upcoming Encounters Date Type Specialty Care Team Description 04/28/2022 Office Visit Family Practice Anthony Doe, PA-C [address] [place], [place] [phone] (Wo rk) 05/03/2022 Office Visit Dermatology Neil Kent M D [address] [place], [place] [phone] (Wo rk) 05/05/2022 Office Visit Optometry Yeny David, OD [address] [facility] [address] [place] [phone] (Wo rk) 05/11/2022 Virtual Visit Pharm D Diana Desir , [facility] [address] [place], [place] [address] (Wo rk) 05/14/2022 Office Visit Cardiology Livan Sharif MD [address] [facility] [address] , [facility] [address] [place], [place] [address] (Wo rk) 05/31/2022 Office Visit Family Practice Valery Veronica , PAUcheC [address] [place] [address] (Wo rk) documented as of this encounter Visit Diagnoses Not on filedocumented in this encounter Additional Health Concerns Assessment Noted Time PHQ-9 Depression Total Score: 2 04/02/2021 10:19 AM CD T documented as of this encounter Care Teams Hazardous Waste Remover Relationship Specialty Start Date End Date Marija Edgar APRN PCP - General Nurse Practitioner 04/30/20 FAMILY CONSUMER SCIENTIST [address] [place] [address] Lita Oseguera Personal Advocate & 02/28/20 Liaison (PAL) Marija Edgar APRN Assigned PCP 06/08/20 FAMILY CONSUMER SCIENTIST [address] [place], [place] [phone] Mynor Broussard MD Assigned Surgical 06/01/20 11/28/[address] [place] Provider [address] [place] [address] Keisha Dotson, Assigned Neuroscience 06/04/20 MD Provider [address] [place] [address] Galo Burrell MD Assigned Heart and 10/05/20 04/02/[address] [place] [address] Diana Desir, [facility] Pharmacist Pharmacist 04/17/[address] [place] [address] Rain Galaviz Physician Axle Inspector Dermatology 04/28/21 ROVERTO Paredes [address] [facility] [address] [place] [address] Summer Lara MD Assigned OBGYN Provider 05/31/21 03/12/[address] [place], [place] [address] Tavia Wyatt MD MD Dermatology 07/14/21 documented as of this encounter
--- OUTSIDE RECORDS SUMMARY | 2022-04-28 01:10 | XMS_ITS | Encounter Summary ---
:2000 Author Organization [facility] Address [address] [place] [address]. [place] [address] Care Team Providers Name Role Phone Lita Oseguera Unavailable Unavailable Marija Edgar APRN MEDIA RELATIONS COORDINATOR Primary Care Provider [phone] Marija Edgar APRN MEDIA RELATIONS COORDINATOR Unavailable Mynor Broussard MD Unavailable Keisha Dotson MD Unavailable Galo Burrell MD Unavailable Diana Desir [facility] Unavailable Rain Galaviz PA-C Unavailable [phone] Summer Lara MD Unavailable Tavia Wyatt MD Unavailable Unavailable Reason for Visit Reason Onset Date Comments Pt. Information/instruction 08/27/2021 Encounter Details Date Type Department Care Team Description 08/27/[address] [facility] Gloria Santos, RN Pt. [facility] [address] Information/instruction [address] [id number] Social History Tobacco Use Types Packs/Day Years [...] week 09/22/2021 How often do you attend sabianist or pentecostalism services? Never 09/22/2021 Do you belong to any clubs or organizations such as No 09/22/2021 sabianist groups, unions, fraternal or athletic groups, or [...] been in contact with No / Unsure 08/27/2021 8:21 AM ACOUSTIC WARFARE ANALYST someone who was confirmed or suspected to have Coronavirus / COVID-19? documented as of this encounter Miscellaneous Notes Telephone Encounter - Gloria Santos RN - 08/27/2021 3:20 PM CST Pre-Procedure Unconfirmed COVID Test Step 1 COVID Screening The patient was screened for COVID symptoms due to the inability to confirm the patient's COVID status (positive or negative test) due to positive test in July. Patient reports the following: Fever/Chills? No Cough? No Shortness of breath? No New loss of taste or smell? No Sore throat? No Muscle or body aches? No Headaches? No Fatigue? No Vomiting or diarrhea? No Patient informed to contact the ordering provider if any of the symptoms develop prior to the procedure Step 2 Screening Results (Skip if the patient is negative for symptoms) If the patient is positive for new or worsening symptoms, contact the ordering provider to determineif the procedure is deemed necessary Determine if the procedure can be re-scheduled when the patient is symptom free or has a negative COVID test Step 3 Review Visitor Policy Patient informed of the updated visitor policy 1 visitor allowed per patient Visitor name: Visitor must screen negative for COVID symptoms Visitor must wear a mask Visitor will need to stay in the room Waiting rooms/cafeteria closed to visitors Gloria Santos RN STIC WARFARE ANALYST documented in this encounter Plan of Treatment Upcoming Encounters Date Type Specialty Care Team Description 04/28/2022 Office Visit Family [facility] Anthony Doe PA-C [address] [place] [address] (Wo rk) 05/03/2022 Office Visit Dermatology Neil Kent M D [address] [place] [address] (Wo rk) 05/05/2022 Office Visit Optometry Yeny David, OD [address] [facility] [address] [place] [id number] (Wo rk) 05/11/2022 Virtual Visit Pharm Diana Eckert , [facility] [address] [place], [place] [address] (Wo rk) 05/14/2022 Office Visit Cardiology Livan Sharif MD [address] [facility] [address] [place], [place] [address] (Wo rk) 05/31/2022 Office Visit Family [facility] Valery Veronica PA-C 909 [place] [address] (Wo rk) documented as of this encounter Visit Diagnoses Not on filedocumented in this encounter Additional Health Concerns Assessment Noted Time PHQ-9 Depression Total Score: 2 04/02/2021 10:19 AM CD T documented as of this encounter Care Teams Director Mba Relationship Specialty Start Date End Date Marija Edgar APRN PCP - General Nurse Practitioner 04/30/20 MEDIA RELATIONS COORDINATOR [address] [place] [address] Lita Oseguera Personal Advocate & 02/28/20 Liaison (PAL) Marija Edgar APRN Assigned PCP 06/08/20 MEDIA RELATIONS COORDINATOR [address] [place] [address] Mynor Broussard MD Assigned Surgical 06/01/20 11/28/21 [address] [place] Provider 500 [place] [address] Trevor-Keisha Peter, Assigned Neuroscience 06/04/20 MD Provider [address] [place] [address] Galo Burrell MD Assigned Heart and 10/05/20 04/02/22 [address] [place] [address] Diana Desir, [facility] Pharmacist Pharmacist 04/17/21 [address] [place], [place] [address] Rain Galaviz Physician Steward/Stewardess Banquet Dermatology 04/28/21 ROVERTO Paredes [address] [facility] [address] [place], [place] [phone] Summer Lara MD Assigned OBGYN Provider 05/31/21 03/12/[address] [place] [address] Tavia Wyatt MD MD Dermatology 07/14/21 documented as of this encounter
--- OUTSIDE RECORDS SUMMARY | 2022-04-28 01:10 | XMS_ITS | Encounter Summary ---
:2000 Author Organization [facility] Address [address] [place] [address] Care Team Providers Name Role Phone Lita Oseguera Unavailable Unavailable Marija Edgar APRN PHYS ASSISTANT Primary Care Provider [phone] Marija Edgar APRN PHYS ASSISTANT Unavailable Mynor Broussard MD Unavailable Keisha Dotson MD Unavailable Galo Burrell MD Unavailable Diana Desir [facility] Unavailable Rain Galaviz PA-C Unavailable [phone] Summer Lara MD Unavailable Tavia Wyatt MD Unavailable Unavailable Encounter Details Date Type Department Care Team Description 08/28/2021 Travel Social History Tobacco Use Types Packs/Day [...] How often do you attend christianity or taoist services? Never 09/22/2021 Do you [...] with No / Unsure 08/28/2021 6:02 AM COUNCILLOR ABORIGINAL LAND COUNCIL someone who was confirmed or suspected to have Coronavirus / COVID-19? documented as of this encounter Plan of Treatment Upcoming Encounters Date Type Specialty Care Team Description 04/28/2022 Office Visit Family Practice Anthony Doe, ROVERTO [address] [place], [place] [phone] (Wo rk) 05/03/2022 Office Visit Dermatology Neil Kent M D [address] [place], [place] [address] (Wo rk) 05/05/2022 Office Visit Optometry Yeny David, OD [address] [facility] [address] [place] [phone] (Jefferson carlson) 05/11/2022 Virtual Visit Pharm D Diana Desir , [facility] [address] [place], [place] [address] (Wo rk) 05/14/2022 Office Visit Cardiology Livan Sharif MD [address], [place] [address] [place] [address] (Wo rk) 05/31/2022 Office Visit Family Practice Valery Veronica , PA-C [address] [place] [address] (Wo rk) documented as of this encounter Visit Diagnoses Not on filedocumented in this encounter Additional Health Concerns Assessment Noted Time PHQ-9 Depression Total Score: 2 04/02/2021 10:19 AM CD T documented as of this encounter Care Teams Shared Services Representative Relationship Specialty Start Date End Date Marija Edgar APRN PCP - General Nurse Practitioner 04/30/20 PHYS ASSISTANT [address] [place] [address] Lita Oseguera Personal Advocate & 02/28/20 Liaison (PAL) Marija Edgar APRN Assigned PCP 06/08/20 PHYS ASSISTANT [address] [place] [address] Mynor Broussard MD Assigned Surgical 06/01/20 11/28/21 [address] [place] Provider [address] [place] [address] Trevor-Keisha Peter, Assigned Neuroscience 06/04/20 MD Provider [address] [place] [address] Galo Burrell MD Assigned Heart and 10/05/20 04/02/22 [address] Vascular Provider [place] [address] Diana Desir, [facility] Pharmacist Pharmacist 04/17/21 [address] [place], [place] [address] Rain Galaviz Physician Manager Of Case Management Dermatology 04/28/21 ROVERTO Paredes [address] [facility] [address] [place], [place] [phone] Summer Lara MD Assigned OBGYN Provider 05/31/21 03/12/[address] [place], [place] [address] Tavia Wyatt MD MD Dermatology 07/14/21 documented as of this encounter
--- OUTSIDE RECORDS SUMMARY | 2022-04-28 01:10 | XMS_ITS | Encounter Summary ---
:2000 Author Organization [facility] Address [address] [place] [address] Care Team Providers Name Role Phone Lita Oseguera Unavailable Unavailable Marija Edgar APRN COMMUTATOR OPERATOR Primary Care Provider [phone] Marija Edgar APRN COMMUTATOR OPERATOR Unavailable Mynor Broussard MD Unavailable Keisha Dotson MD Unavailable Galo Burrell MD Unavailable Diana Desir [facility] Unavailable Rain Galaviz PA-C Unavailable Summer Lara MD Unavailable Tavia Wyatt MD Unavailable Unavailable Reason for Referral Diagnostic Imaging MRI (Routine) - Closed Specialty Diagnoses / Procedures Referred By Contact Refer red To Contact Diagnoses Neck pain Left arm weakness Ebony Leach PA-C Procedures MRI Cervical spine w/o contrast 9[address] [place], [place] [address] Referral ID Status Reason Start Date Expiration Date Visits Requ ested Visits Authorized [id number] Closed 08/27/2021 08/27/2022 1 1 BIT BUILDER Reason for Visit Reason Comments Consult Neck pain. Has left arm ting ling and pain also Encounter Details Date Type Department Care Team Description 08/27/2021 Office Visit [facility] Johnny Murillo Neck pain (Primary Dx); [facility] MD Ish Left arm weakness [address] [place], [place] 4th Floor [address] [place], [place] [phone] (Wo rk) [address] [phone] Social History Tobacco Use Types Packs/Day Years [...] How often do you attend baptist or christian services? Never 09/22/2021 Do you belong to [...] with No / Unsure 08/28/2021 6:02 AM EXHIBIT BUILDER someone who was confirmed or suspected to have Coronavirus / COVID-19? documented as of this encounter Last Filed Vital Signs Vital Sign Reading Time Taken Comments Blood Pressure - - Pulse - - Temperature - - Respiratory Rate - - Oxygen Saturation - - Inhaled Oxygen Concentration - - Weight 84.4 kg (186 lb) 08/27/2021 9:38 AM EXHIBIT BUILDER Height 167.6 cm (5' 6) 08/27/2021 9:38 AM EXHIBIT BUILDER Body Mass Index 30.02 08/27/2021 9:38 AM EXHIBIT BUILDER documented in this encounter Progress Notes Johnny Murillo MD - 08/27/2021 9:00 AM CST REASON FOR CONSULTATION: No chief complaint on file. REFERRING PHYSICIAN: Referred Self PCP:Marija Edgar History of Present Illness: Left-handed 21 year old female who presents today for evaluation of neck pain and left arm symptoms.Patient reports that she has dealt with neck pain for a long time. She has pain midline in bilateralparaspinals that radiates up into her head and is associated with migraines. This is relatively stable. However for the last year or so she has had new onset of left arm symptoms. She says that about 3-4 times a week her whole entire arm will become numb and weak. She cannot tell what causes this, andit seems to happen randomly throughout the day. Left arm symptoms are not associated with head or neck movement. She has been seen neurology for this issue for the past year. She recently had an MRI ofher brain due to history of epilepsy, and on that exam they saw a lesion in the C4 vertebral body. As a result, she had a CT scan which redemonstrated the C4 lesion. She presents today for assessment of this C4 lesion and her left arm symptoms. Patient denies myelopathic symptoms including worsening balance, fine motor skills, clumsiness. Denies fever, chills/ill feeling. Denies worsening fatigue. Denies cancer history. Admits to family history of cancer in her grandmother who had breast cancer and bone cancer. 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 Med Hx: Past Medical History: Diagnosis Date ??? Anxiety ??? Chronic kidney disease stones, history of infections ??? Depressive disorder ??? Gastroesophageal reflux disease ??? Psoriasis ??? Seizure (H) 05/02/2019 no seizure since 2017 ??? SVT (supraventricular tachycardia) (H) Surg Hx: Past Surgical History: Procedure Laterality Date ??? ESOPHAGOSCOPY, GASTROSCOPY, DUODENOSCOPY (EGD), COMBINED N/A 06/26/2021 Procedure: ESOPHAGOGASTRODUODENOSCOPY (EGD) (fv); Surgeon: Rey Sheppard MD; Location: GI ??? GENITOURINARY SURGERY kidney Allergies: No Known Allergies Meds: Current Outpatient Medications Medication ??? augmented betamethasone dipropionate (DIPROLENE-AF) 0.05 % external ointment ??? fluocinonide (LIDEX) 0.05 % external solution ??? levETIRAcetam (KEPPRA) 500 MG tablet ??? omeprazole (PRILOSEC) [address] capsule ??? Vit-Fe Fumarate-FA ( MULTIVITAMIN W/IRON) 27-0.8 MG tablet ??? sertraline (ZOLOFT) 100 MG tablet ??? tacrolimus (PROTOPIC) 0.1 % external ointment No current facility-administered medications for this visit. Fam Hx: Family History Problem Relation Age of Onset ??? Heart Disease Maternal Grandfather ??? Brain Tumor Sister P/S Hx: Social History Tobacco Use ??? Smoking status: Former Smoker Packs/day: 1.00 Types: Other Quit date: 12/07/2019 Years since quittin.7 ??? Smokeless tobacco: Never Used Substance Use Topics ??? Alcohol use: Not Currently Physical Exam: Constitutional - Patient is healthy, well-nourished and appears stated age. A&Ox3. There were no vitals taken for this visit. Respiratory - Patient is breathing normally and in no respiratory distress. Skin - psoriasis patches on arms, hands, neck Psychiatric - Normal mood and affect. Cardiovascular - Extremities warm and well perfused. Eyes - Visual acuity is normal to the written word. ENT - Hearing intact to the spoken word. GI - No abdominal distention. Musculoskeletal - Non-antalgic gait without use of assistive devices. Normal upright posture. Normal gait without assistive device. No antalgia / imbalance. Able to perform tandem gait with ease. Negative Romberg's. Cervical spine: Appearance - Normalnormal neck posture, able to maintain horizontal gaze. No deformity, no skin lesions or surgical scars. Localizes pain at midline. Numbness/ weakness throughout entire left arm Palpation - Non-tender to palpation. Decreased sensation throughout left arm, no specific distribution. ROM - Full , painless Motor - UPPER EXTREMITY Left Right Throat Cutter strength 5/5 5/5 Finger ab/adduction 5/5 5/5 Wrist flexion 5/5 5/5 Wrist extension 4+/5 5/5 Elbow flexion 5/5 5/5 Elbow extension 5/5 5/5 Shoulder flexion 5/5 5/5 Special Tests - C-spine instability - negative Lhermitte's Test - negative Spurling's Test - negative Thoracic Spine: Appearance - Normal Palpation - Non-tender to palpation Strength/ROM - deferred Upper extremity: Full pulses, pink nailbeds, good capillary / refill. (-) atrophy / asymmetry. Imagin08/27/2021 XR cervical spine AP/lateral views: No evidence of fracture or spondylolisthesis. Neutral coronal and sagittal alignment. 08/03/21 CT cervical spine w/o contrast: Nonspecific sclerotic lesion in the right aspect of the C4 vertebral body. No spondylolisthesis. No fracture. No spinal or foraminal stenosis. Impression: 21/f LHD with: 1. Benign sclerotic lesion right C4 vertebral body, most consistent with bony island 2. Left upper extremity diffuse weakness, tingling, numbness 3. Chronic neck pain Plan: Reviewed images with patient today. C4 lesion is most consistent with what we call a bony island, which is a benign finding. Reassured patient that it is unlikely that this is cancer. It is a scleroticregion, so there is low risk for any compression fracture. It is not impinging on any nerve roots orvessels. It does not cause neck pain. We discussed that this finding is also located on the right, so it is unlikely to be causing left arm symptoms. There is no evidence of bony spinal canal or foraminal stenosis to explain her left arm symptoms. However, MRI will give us better detail of soft tissuestructures that could be impinging upon the nerve roots. If this is clear, then we would recommend fo llowing up with her neurologist for EMG testing and other evaluation and treatment options. - MRI cervical spine w/o contrast - follow up with neurology team - consider LUE EMG for >1yr L arm diffuse weakness/ numbness/ tingling Virtual RTC to review MRI results and discuss further options. All questions and concerns were answered to the patient's apparent satisfaction before leaving the clinic. Respectfully, Ebony Leach (segundo Ramsey)ROVERTO Attestation: I (Dr. Johnny Murillo - Spine Surgeon) have personally evaluated patient with ROVERTO Leach, and agree with findings and plan outlined in the note, which I also edited. I discussed at length with the patient/family, explained the nature of spinal condition, and formulated workup and/or treatment plan together. All questions were answered to the best of my ability and to patient's apparent satisfaction. 30 minutes spent on the date of the encounter doing chart review/review of outside records/review oftest results/interpretation of tests/patient visit/documentation/discussion with other provider(s)/discussion with patient and family. Johnny Murillo MD Online [facility] Sp[facility] Surgery Dept Orthopaedic Surgery, [facility] [phone] office, pager [email or web address] [email or web address] BIT BUILDER documented in this encounter Plan of Treatment Upcoming Encounters Date Type Specialty Care Team Description 04/28/2022 Office Visit [facility] Anthony Doe PA-C [address] [place], [place] [phone] (Wo rk) 05/03/2022 Office Visit Dermatology Neil Kent M D [address] [place], [place] [address] (Wo rk) 05/05/2022 Office Visit Optometry Yeny David, OD [address] [facility] [place] [address] (Wo rk) 05/11/2022 Virtual Visit Pharm D Diana Desir , [facility] [address] [place], [place] [address] (Wo rk) 05/14/2022 Office Visit Cardiology Livan Sharif MD [address] [facility] [address] [place], [place] [address] (Wo rk) 05/31/2022 Office Visit [facility] Valery Veronica PA-C [address] [place], [place] [address] (Wo rk) documented as of this encounter Results MRI Cervical spine w/o [...] EXAM: MR CERVICAL SPINE W/O CONTRAST LOCATION: [facility] DATE/TIME: 11/12/2021 5:50 PM INDICATION: Left upper [...] EXAM: MR CERVICAL SPINE W/O CONTRAST LOCATION: [facility] DATE/TIME: 11/12/2021 5:50 PM INDICATION: Left upper [...] this encounter Visit Diagnoses Diagnosis Neck pain - Primary Cervicalgia Left arm weakness Other musculoskeletal symptoms referable to limbs Neck pain Cervicalgia Left arm weakness Other musculoskeletal symptoms referable to limbs documented in this encounter Additional Health Concerns Assessment Noted Time PHQ-9 Depression Total Score: 2 04/02/2021 10:19 AM CD T documented as of this encounter Care Teams Tassel Snipper Relationship Specialty Start Date End Date Marija Edgar APRN PCP - General Nurse Practitioner 04/30/20 COMMUTATOR OPERATOR [address] [place] [address] Lita Oseguera Personal Advocate & 02/28/20 Liaison (PAL) Marija Edgar APRN Assigned PCP 06/08/20 COMMUTATOR OPERATOR [address] [place] [address] Mynor Broussard MD Assigned Surgical 06/01/20 11/28/21 [address] Provider [address] [place], [place] [address] Trevor-Keisha Peter, Assigned Neuroscience 06/04/20 Provider [address] [place], [place] [address] Galo Burrell MD Assigned Heart and 10/05/20 04/02/22 [address] [facility] [address] Vascular Provider [place] [address] Diana Desir, [facility] Pharmacist Pharmacist 04/17/[address] [place], [place] [address] Rain Galaviz Physician Feed Weigher Dermatology 04/28/21 ROVERTO Paredes [address] [facility] [address] [place], [place] [phone] Summer Lara MD Assigned OBGYN Provider 05/31/21 03/12/[address] [place], [place] [address] Tavia [place] MD MD Dermatology 07/14/21 documented as of this encounter
--- OUTSIDE RECORDS SUMMARY | 2022-04-28 01:10 | XMS_ITS | Encounter Summary ---
:2000 Author Organization [facility] Address [address] [place] [address] Care Team Providers Name Role Phone Lita Oseguera Unavailable Unavailable Marija Edgar APRN TREATING AND PUMPING SUPERVISOR Primary Care Provider [phone] Marija Edgar APRN TREATING AND PUMPING SUPERVISOR Unavailable Mynor Broussard MD Unavailable Keisha Dotson MD Unavailable Galo Burrell MD Unavailable Diana Desir [facility] Unavailable Rain Galaviz PA-C Unavailable [phone] Summer Lara MD Unavailable Tavia [place] MD Unavailable Unavailable Encounter Details Date Type Department Care Team Description 08/11/2021 Travel Social History Tobacco Use Types Packs/Day [...] How often do you attend protestant or orthodoxy services? Never 09/22/2021 Do you belong to [...] with No / Unsure 08/11/2021 8:54 AM RACK PUNCHER someone who was confirmed or suspected to have Coronavirus / COVID-19? documented as of this encounter Plan of Treatment Upcoming Encounters Date Type Specialty Care Team Description 04/28/2022 Office Visit Family Practice Anthony Doe, ROVERTO [address] [place], [place] [phone] (Wo rk) 05/03/2022 Office Visit Dermatology Neil Kent M D [address] [place], [place] [address] (Wo rk) 05/05/2022 Office Visit Optometry Yeny David, OD [address] [facility] [address] [place] [phone] (Jefferson carlson) 05/11/2022 Virtual Visit Pharm D Diana Desir , [facility] [address] [place], [place] [address] (Wo rk) 05/14/2022 Office Visit Cardiology Livan Sharif MD [address], [place] [address] [place] [address] (Wo rk) 05/31/2022 Office Visit Family Practice Valery Veronica , PA-C [address] [place] [address] (Wo rk) documented as of this encounter Visit Diagnoses Not on filedocumented in this encounter Additional Health Concerns Assessment Noted Time PHQ-9 Depression Total Score: 2 04/02/2021 10:19 AM CD T documented as of this encounter Care Teams Inseamer Relationship Specialty Start Date End Date Marija Edgar APRN PCP - General Nurse Practitioner 04/30/20 TREATING AND PUMPING SUPERVISOR [address] [place] [address] Lita Oseguera Personal Advocate & 02/28/20 Liaison (PAL) Marija Edgar APRN Assigned PCP 06/08/20 TREATING AND PUMPING SUPERVISOR [address] [place] [address] Mynor Broussard MD Assigned Surgical 06/01/20 11/28/21 [address] Provider [address] [place] [address] Trevor-Keisha Peter, Assigned Neuroscience 06/04/20 MD Provider 909 [place] [address] Galo Burrell MD Assigned Heart and 10/05/20 04/02/22 [address] Vascular Provider [place] [address] Diana Desir, [facility] Pharmacist Pharmacist 04/17/21 [address] [place], [place] [address] Rain Galaviz Physician Hanger Dermatology 04/28/21 ROVERTO Paredes [address] [facility] [address] [place] [place], [place] [phone] Summer Lara MD Assigned OBGYN Provider 05/31/21 03/12/[address] [place], [place] [address] Tavia [place] MD MD Dermatology 07/14/21 documented as of this encounter
--- OUTSIDE RECORDS SUMMARY | 2022-04-28 01:10 | XMS_ITS | Encounter Summary ---
:2000 Author Organization [facility] Address [address] [place] [id number] Care Team Providers Name Role Phone Lita Oseguera Unavailable Unavailable Marija Edgar APRN PREFORMING 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 Primary Care Provider [phone] Marija Edgar APRN PREFORMING 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 Unavailable Mynor Broussard MD Unavailable Keisha Dotson MD Unavailable Galo Burrell MD Unavailable Diana Desir [facility] Unavailable Rain Galaviz PA-C Unavailable [phone] Summer Lara MD Unavailable Tavia Wyatt MD Unavailable Unavailable Encounter Details Date Type Department Care Team Description 08/26/2021 Travel Social History Tobacco Use Types Packs/Day [...] How often do you attend gnosticism or pentecostal services? Never 09/22/2021 Do you [...] with No / Unsure 08/26/2021 4:03 PM COMMERCIAL SALES CONSULTANT someone who was confirmed or suspected to have Coronavirus / COVID-19? documented as of this encounter Plan of Treatment Upcoming Encounters Date Type Specialty Care Team Description 04/28/2022 Office Visit Family Practice Anthony Doe, ROVERTO [address] [place], [place] [phone] (Wo rk) 05/03/2022 Office Visit Dermatology Neil Kent M D [address] [place], [place] [address] (Wo rk) 05/05/2022 Office Visit Optometry Yeny David, OD [address] [place] [phone] (Jefferson carlson) 05/11/2022 Virtual Visit Pharm D Diana Desir , [facility] [address] [place], [place] [phone] (Wo rk) 05/14/2022 Office Visit Cardiology Livan Sharif MD [address], [address] [place] [phone] (Wo rk) 05/31/2022 Office Visit Family Practice Valery Veronica , PA-C [address] [place] [address] (Wo rk) documented as of this encounter Visit Diagnoses Not on filedocumented in this encounter Additional Health Concerns Assessment Noted Time PHQ-9 Depression Total Score: 2 04/02/2021 10:19 AM CD T documented as of this encounter Care Teams Cloth Spreader Screen Printing Relationship Specialty Start Date End Date Marija Edgar APRN PCP - General Nurse Practitioner 04/30/20 PREFORMING 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 [address] [place] [address] Lita Oseguera Personal Advocate & 02/28/20 Liaison (PAL) Marija Edgar APRN Assigned PCP 06/08/20 PREFORMING 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 [address] [place] [address] Mynor Broussard MD Assigned Surgical 06/01/20 11/28/21 [address] Provider [address] [place] [address] rTevor-Keisha Peter, Assigned Neuroscience 06/04/20 MD Provider [address] [place] [address] Galo Burrell MD Assigned Heart and 10/05/20 04/02/[address] Vascular Provider [place] [address] Diana Desir, [facility] Pharmacist Pharmacist 04/17/21 [address] [place], [place] [address] Rain Galaviz Physician Recreation Engineer Dermatology 04/28/21 ROVERTO Paredes [address] [place], [place] [id number] Summer Lara MD Assigned OBGYN Provider 05/31/21 03/12/[address] [place], [place] [id number] Tavia Wyatt MD MD Dermatology 07/14/21 documented as of this encounter
--- OUTSIDE RECORDS SUMMARY | 2022-04-28 01:10 | XMS_ITS | Encounter Summary ---
:2000 Author Organization [facility] Address [address] [place] [id number] Care Team Providers Name Role Phone Lita Oseguera Unavailable Unavailable Marija Edgar APRN WHIPPED TOPPING FINISHER Primary Care Provider [phone] Marija Edgar APRN WHIPPED TOPPING FINISHER Unavailable Mynor Broussard MD Unavailable Keisha Dotson MD Unavailable Zachary Burrell MD Unavailable Diana Desir [facility] Unavailable Rain Galaviz PA-C Unavailable [phone] Summer Lara MD Unavailable Tavia Wyatt MD Unavailable Unavailable Reason for Visit Auth/Cert Specialty Diagnoses / Procedures Referred By Contact Refer red To Contact Med Surg Diagnoses Paroxysmal supraventricular tachycardia (H) Super ventricular tachycardia Care Suites Procedures HC EPHYS EVAL W/ ABLATION SUPRAVENT ARRHYTHMIA EP Ablation SVT [address] [phone] Phone: Referral ID Status Reason Start Date Expiration Date Visits Requ ested Visits Authorized [id number] 1 1 Encounter Details Date Type Department Care Team Description 08/28/2021 [facility] June Yao iologMD johann [address] [place] [id number] Paroxysmal supraventricular tachycardia (H); Encounter [facility] Zachary Burrell MD [address] [place] [address] [id number] SVT (supraventricular tachycardia) (H) Suites [address] [phone] Social History Tobacco Use Types Packs/Day Years [...] How often do you attend confucianism or congregational services? Never 09/22/2021 Do you [...] with No / Unsure 08/28/2021 6:02 AM UNIX MANAGER someone who was confirmed or suspected to have Coronavirus / COVID-19? documented as of this encounter Last Filed Vital Signs Vital Sign Reading Time Taken Comments Blood Pressure 125/65 08/28/2021 2:00 PM UNIX MANAGER Pulse 80 08/28/2021 2:00 PM UNIX MANAGER Temperature 36.8 ??C (98.2 ??F) 08/28/2021 6:18 AM UNIX MANAGER Respiratory Rate 16 08/28/2021 2:00 PM UNIX MANAGER Oxygen Saturation 99% 08/28/2021 2:00 PM UNIX MANAGER Inhaled Oxygen Concentration - - Weight 82.2 kg (181 lb 4.8 oz) 08/28/2021 6:18 AM UNIX MANAGER Height 167.6 cm (5' 6) 08/28/2021 6:18 AM UNIX MANAGER Body Mass Index 29.26 08/28/2021 6:18 AM UNIX MANAGER documented in this encounter Discharge Instructions Discharge InstructionsAlexus Avalos RN - 08/28/2021 7:31 AM CST SVT Ablation Discharge Instructions After you go home: ??? Have an adult stay with you until tomorrow. ??? You may resume your normal diet. For 24 hours - due to the sedation you received: ??? Relax and take it easy. ??? Do NOT make any important or legal decisions. ??? Do NOT drive or operate machines at home or at work. ??? Do NOT drink alcohol. Care of Puncture Sites: ??? For the first 24 hrs - check the puncture site every 1-2 hours while awake. ??? For 2 days, when you cough, sneeze, laugh or move your bowels, hold your hand over the puncture site and press firmly. ??? Remove the dressing(s) after 24 hours. If there is minor oozing, apply a bandaid and remove it after 12 hours. ??? It is normal to have a small bruise, pea sized lump or soreness at the site. ??? You may shower tomorrow. Do NOT take a bath, or use a hot tub or pool for at least 3 days. Do NOT scrub the site. Do not use lotion or powder near the puncture site. Activity - For 3 days: ??? No stooping or squatting ??? Do NOT do any heavy activity such as exercise, lifting, or straining. ??? Do NOT do housework, yard work or any activity that make you sweat ??? Do NOT lift more than 10 pounds Bleeding: ??? If you start bleeding from the site in your groin/chest, lie down flat and press firmly on the site for 10 minutes. ??? Once bleeding stops, lay flat for 2 hours. ??? Call [facility] as soon as you can. Call 911 right away if you have heavy bleeding or bleeding that does not stop. Medicines: ??? Take your medications, including blood thinners, unless your provider tells you not to. ??? If you have stopped any medicines, check with your provider about when to restart them. ??? If you have pain or shortness of breath, you may take Advil (ibuprofen) or Tylenol (acetaminophen). Follow Up Appointments: ??? Erica Farrell on 09/25 at 1:00 with an EKg ??? You will receive a phone call on Tuesday from an RN - Alexus. Call the clinic if: ??? You have increased pain or a large or growing hard lump around the site. ??? The site is red, swollen, hot or tender. ??? Blood or fluid is draining from the site. ??? You have chills or a fever greater than 101 F (38 C). ??? Your leg feels numb, cool or changes color. ??? Increased pain in the chest and/or groin. ??? Increased shortness of breath ??? Chest pain not relieved by Tylenol or Advil ??? New pain in the back or belly that you cannot control with Tylenol. ??? Recurrent irregular or fast heart rate lasting over 2 hours. ??? Any questions or concerns. Heart rhythms: You may have some irregular heartbeats. These feel very strong. They may make you feel that the fastheart rhythm is going to start again. Give it time. The irregular beats should occur less often. [facility]: [phone] ( 8am-5pm M-F) Nichole Vaughan [phone] option 2 (7 days a week) photonics engineering technician Hospice Social Worker MANAGER documented in this encounter Medications at Time of Discharge Medication Sig Dispensed Refills Start Date End Date augmented betamethasone Apply up to twice 150 g 11 08/11 dipropionate daily as needed for (DIPROLENE-AF) 0.05 % psoriasis on thicker external areas of skin. ointmentIndications: Psoriasis fluocinonide (LIDEX) Apply small amount 60 mL 11 022 0.05 % external to psoriasis on the solutionIndications: scalp. Psoriasis Vit-Fe Take 1 tablet by 90 tablet [...] daily tabletIndications: Convulsions, unspecified convulsion type (H) omeprazole (PRILOSEC) 40 Take 1 capsule (40 90 capsule 0 09/02/[address] mg) by mouth daily capsuleIndications: Epigastric pain sertraline (ZOLOFT) 100 Take 2 tablets (200 180 tablet 1 10/30/2021 MG tabletIndications: mg) by mouth daily Anxiety documented as of this encounter Progress Notes Karen Guerrero RN - 08/28/2021 2:19 PM CST Care Suites Discharge Nursing Note Patient Information Name: Kim Johnson Age: [age] year old Discharge Education: Discharge instructions reviewed: Yes Additional education/resources provided: Patient/patient admissions representative verbalizes understanding: Yes Patient discharging on new medications: No Medication education completed: Yes Discharge Plans: Discharge location: home Discharge ride contacted: Yes Approximate discharge time: 1415 Discharge Criteria: Discharge criteria met and vital signs stable: Yes Patient Belongs: Patient belongings returned to patient: Yes Karen Guerrero RN MANAGER Zachary Burrell MD - 08/28/2021 9:47 AM CST SVT ablation: Typical AVNRT, easily inducible. Successful ablation. No complications. May be discharged around 2 pm. Resume home medications. MANAGER Karen Guerrero RN - 08/28/2021 7:02 AM CST Care Suites Admission Nursing Note Patient Information Name: Kim Johnson Age: [age] year old Reason for admission: SVT ablation Care Suites arrival time: 614 Visitor Information Name: Rebeka Informed of visitor restrictions: Yes 1 visitor allowed per patient Visitor must screen negative for COVID symptoms Visitor must wear a mask Waiting rooms closed to visitors Patient Admission/Assessment Pre-procedure assessment complete: Yes If abnormal assessment/labs, provider notified: N/A NPO: Yes Medications held per instructions/orders: N/A Consent: deferred If applicable, test status: deferred Patient oriented to room: Yes Education/questions answered: Yes Discharge Planning Discharge name/phone number: Rebeka Overnight post sedation caregiver: Kat Discharge location: home Karen Guerrero RN PATIENT/VISITOR WELLNESS SCREENING Step 1 Patient Screening 1. In the last month, have you been in contact with someone who was confirmed or suspected to have Coronavirus/COVID-19? No 2. Do you have the following symptoms? Fever/Chills? No Cough? No Shortness of breath? No New loss of taste or smell? No Sore throat? No Muscle or body aches? No Headaches? No Fatigue? No Vomiting or diarrhea? No Step 2 Visitor Screening 1. Name of Visitor (1 visitor per patient): Rebeka 2. In the last month, have you been in contact with someone who was confirmed or suspected to have Coronavirus/COVID-19? No 3. Do you have the following symptoms? Fever/Chills? No Cough? No Shortness of breath? No Skin rash? No Loss of taste or smell? No Sore throat? No Runny or stuffy nose? No Muscle or body aches? No Headaches? No Fatigue? No Vomiting or diarrhea? No If the visitor has positive symptoms, notify terrazzo supervisor/manger Per policy, the visitor will need to leave the facility Step 3 Refer to logic grid below for actions NO SYMPTOM(S) ACTIONS: 1. Standard rooming process 2. Provider to assess per normal protocol 3. Implement precautions as needed and per guidelines POSITIVE SYMPTOM(S) If positive for ANY of the following symptoms: fever, cough, shortness of breath, rash ACTION: 1. Continue to have the patient wear a mask 2. Room patient as soon as possible 3. Don appropriate PPE when entering room 4. Provider evaluation MANAGER Rain Toro, RN - 08/27/2021 5:42 PM CST Pt called at home to bring own breast pump if possible- patient states hers does not work and will need one while she is here for her procedure tomorrow. Spoke with maternal RN and sales operations consultant regarding pumping and dumping after Fentanyl and Versed-patient to dump 1-2 times post procedure sedation before feeding baby. Patient notified and updated. MANAGER documented in this encounter Plan of Treatment Upcoming Encounters Date Type Specialty Care Team Description 04/28/2022 Office Visit Family Practice Anthony Doe, ROVERTO [address] [place], [place] [phone] (Wo rk) 05/03/2022 Office Visit Dermatology Neil Kent M D [address] [place], [place] [phone] (Wo rk) 05/05/2022 Office Visit Optometry Yeny David, OD [address] [facility] [place] [phone] (Wo rk) 05/11/2022 Virtual Visit Pharm D Desir, Diana T , RPH [address] [place] [address] (Wo rk) 05/14/2022 Office Visit Cardiology Livan Sharif MD [address] [place] [address] (Wo rk) 05/31/2022 Office Visit Family Practice Valery Veronica PA-C [address] [place], [place] [phone] (Wo rk) documented as of this encounter Procedures Procedure Name Priority Date/Time Associated Diagnosis Comme nts EKG 12-LEAD, TRACING Routine 08/28/2021 10:12 Res ults for this ONLY AM UNIX MANAGER procedure are i n the results section. EP ABLATION SVT Routine 08/28/2021 9:58 Paroxysmal Results f or this AM UNIX MANAGER supraventricular procedure a re in tachycardia (H) the results section. EKG 12-LEAD, TRACING STAT 08/28/2021 7:08 Resu lts for this ONLY AM UNIX MANAGER procedure are i n the results section. HCG QUANTITATIVE STAT 08/28/2021 6:53 Results for this AM UNIX MANAGER procedure are i n the results section. BASIC METABOLIC STAT 08/28/2021 6:53 Results f or this PANEL AM UNIX MANAGER procedure are i n the results section. CBC WITH PLATELETS STAT 08/28/2021 6:53 Result s for this AM UNIX MANAGER procedure are i n the results section. documented in this encounter Results EKG 12-lead, tracing only (08/28/2021 10:12 AM UNIX MANAGER) Component Value Ref Range Test Analysis Performed Pathologis t Method Time At Signature Systolic Blood mmHg RADIOLOGY Pressure RESULTS Diastolic Blood mmHg RADIOLOGY Pressure RESULTS Ventricular Rate 98 BPM RADIOLOGY RESULTS Atrial Rate 98 BPM RADIOLOGY RESULTS HI Interval 140 ms RADIOLOGY RESULTS QRS Duration 88 ms RADIOLOGY RESULTS QT 334 ms RADIOLOGY RESULTS QTc 426 ms RADIOLOGY RESULTS P [place] 43 degrees RADIOLOGY RESULTS R AXIS 69 degrees RADIOLOGY RESULTS T [place] 49 degrees RADIOLOGY RESULTS Interpretation Sinus rhythm RADIOLOGY ECG Normal ECG RESULTS When compared with ECG of 28-AUG-2021 07:08, (unconfirmed) No significant change was found Confirmed by MD ZABRINA, HAYLEE [address] ([id number]), editor dictionary BJ BAKER ([id number]) on 08/31/2021 2:07:55 PM Specimen Anatomical Collection Method Collection Time Receive d Time (Source) Location / / Volume Laterality 08/28/2021 10:12 08/31/2021 2:07 AM UNIX MANAGER PM UNIX MANAGER Zachary Burrell MD ECG ORDERABLES Performing Organization Address City/State/ZIP Code Phon e Number RADIOLOGY RESULTS EP ABLATION SVT (08/28/2021 9:58 AM UNIX MANAGER) Anatomical Region Laterality Modality Radio Fluoroscopy Specimen (Source) Anatomical Location Collection Method / Collectio n Time Received Time / Laterality Volume Narrative 08/28/2021 2:03 PM UNIX MANAGER EP ABLATION 08/28/2021 8:55 AM NAME OF THE PROCEDURE 1. Conscious sedation 2. Comprehensive EP study with left atri al recording through the coronary sinus 3. 3-D intracardiac mapping 4. Ablation of AV node reentrant tachyca rdia INDICATIONS FOR PROCEDURE: Ms. Johnson is a 21-year-old white female who has had documented symptomatic SVT. She was intolerant of low dose of metoprolol. There is no apparent stru ctural heart disease. PROCEDURE AND RESULTS: After the written informed consent was obtained the patient was transported to CV lab 4 in the fasting state. The procedure was performed under local anes thesia and sterile conditions. IV Versed and fentanyl were used for con scious sedation. The heart rate, blood pressure and oxygen saturati on were monitored by the RN under my supervision. By using the Seldinger technique a 5 Kelby nch decapolar catheter was inserted through the left subclavian vei n and placed into the coronary sinus. Three quadripolar catheters were inserted through the right femoral vein and were placed into the hi gh right atrium, His bundle region and the RV apex. The patient was in sinus tachycardia of about 110 bpm at baseline. The AH and HV intervals were normal. Retrogr mansi conduction was through the normal His-Purkinje system. The VA Wenck ebach cycle length was 220 ms. The ventricular ERP was 170 at basic dri ve cycle length 400 ms. AV Wenckebach cycle length was 280 ms. AV n ode ERP was [address] cycle length of 400 ms. 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 She also had spontaneous occurrence of SVT that was triggered by catheter-induced PACs. The tachycardia could be terminated by eithe r atrial or ventricular burst pacing. The heart rate during the tachyc ardia was 225 bpm. The mapping and ablation were guided by the CARTO 3-D mapping system. The RV catheter was removed and the abla tion catheter was inserted. The ablation catheter was Biosense Webst er with a 4 mm tip. Three ablations were applied to the slow pathw ay region with last two ablation-induced intermittent junctional tachycardia. After the ablation the patient underwent repeat EP study. She had no evidence of AV av echo or inducible t achycardia. At the end of the procedure the catheter s and sheaths were removed. The femoral access site was closed by us ing a suture and a stopcock. ZACHARY BURRELL MD Erica Farrell GLASS LOADING EQUIPMENT TENDER WHIPPED TOPPING FINISHER CV ELECTROPHYSIOLOGY ORDERABLES EKG 12-lead, tracing only (08/28/2021 7:08 AM UNIX MANAGER) Component Value Ref Range Test Analysis Performed Pathologis t Method Time At Signature Systolic Blood mmHg RADIOLOGY Pressure RESULTS Diastolic Blood mmHg RADIOLOGY Pressure RESULTS Ventricular Rate 102 BPM RADIOLOGY RESULTS Atrial Rate 102 BPM RADIOLOGY RESULTS HI Interval 142 ms RADIOLOGY RESULTS QRS Duration 82 ms RADIOLOGY RESULTS QT 344 ms RADIOLOGY RESULTS QTc 448 ms RADIOLOGY RESULTS P [place] 71 degrees RADIOLOGY RESULTS R AXIS 80 degrees RADIOLOGY RESULTS T [place] 46 degrees RADIOLOGY RESULTS Interpretation Sinus tachycardia RADIOLO GY ECG Otherwise normal ECG RESULTS When compared with ECG of 31-JUL-2021 15:11, No significant change was found Confirmed by MD ZABRINA, HAYLEE Ward ([id number]), editor dictionary BJ BAKER ([id number]) on 08/31/2021 2:16:42 PM Specimen Anatomical Collection Method Collection Time Receive d Time (Source) Location / / Volume Laterality 08/28/2021 7:08 AM 2 2:16 UNIX MANAGER PM UNIX MANAGER Zachary Burrell MD ECG ORDERABLES Performing Organization Address City/State/ZIP Code Phon e Number RADIOLOGY RESULTS HCG quantitative (08/28/2021 6:53 AM UNIX MANAGER) Analysis Performed At Patho logist Time Signature hCG Quantitative <1 0 - 5 IU/L 08/28/2021 [facility] LABORATO RY 7:23 AM UNIX MANAGER Comment: Adult: 0-5 IU/L for healthy non- person Neonates: Should be within normal ranges by 2 days after Specimen Anatomical Collection Method / Collection Time Recei chelsie Time (Source) Location / Volume Laterality Blood STRUCTURE OF RIGHT Venipuncture / 08/28/2021 6:53 02/02/2022 7:01 UPPER LIMB / Unknown AM UNIX MANAGER AM UNIX MANAGER Unknown Zachary Burrell MD LAB - BLOOD ORDERABLES Performing Organization Address City/[facility]/ZIP Code Phon e Number LABORATORY [facility] [place] [phone] [facility] Lab [address] 1[address] floor, Room [address]B (ABNORMAL) CBC with platelets (08/28/2021 6:53 AM UNIX MANAGER) [facility] gist Method Time Signature WBC Count 7.1 4.0 - 11.0 08/28/2021 LABORATORY 10e3/uL 7:05 AM UNIX MANAGER RBC Count 5.23 (H) 3.80 - 08/28/2021 LABORATORY 5.20 7:05 AM UNIX MANAGER 10e6/uL Hemoglobin 13.2 11.7 - 08/28/2021 LABORATORY 15.7 g/dL 7:05 AM UNIX MANAGER Hematocrit 41.2 35.0 - 08/28/2021 LABORATORY 47.0 % 7:05 AM UNIX MANAGER MCV 79 78 - 100 08/28/2021 LABORATORY fL 7:05 AM UNIX MANAGER MCH 25.2 (L) 26.5 - 08/28/2021 LABORATORY 33.0 pg 7:05 AM UNIX MANAGER MCHC 32.0 31.5 - 08/28/2021 LABORATORY 36.5 g/dL 7:05 AM UNIX MANAGER RDW 13.8 10.0 - 08/28/2021 LABORATORY 15.0 % 7:05 AM UNIX MANAGER Platelet Count 262 150 - 450 08/28/2021 LABORATORY 10e3/uL 7:05 AM UNIX MANAGER Specimen Anatomical Collection Method / Collection Time Recei chelsie Time (Source) Location / Volume Laterality Blood STRUCTURE OF RIGHT Venipuncture / 08/28/2021 6:53 02/02/2022 7:01 UPPER LIMB / Unknown AM UNIX MANAGER AM UNIX MANAGER Unknown Zachary Burrell MD LAB - BLOOD ORDERABLES Performing Organization Address City/State/ZIP Code Phon e Number LABORATORY [facility] [place] [phone] Care Lab [address] floor, Room [address]B Basic metabolic panel (08/28/2021 6:53 AM UNIX MANAGER) athologist Signature Sodium 136 133 - 144 08/28/2021 LABORATORY mmol/L 7:19 AM UNIX MANAGER Potassium 3.9 3.4 - 5.3 08/28/2021 LABORATORY mmol/L 7:19 AM UNIX MANAGER Chloride 105 94 - 109 08/28/2021 LABORATORY mmol/L 7:19 AM UNIX MANAGER Carbon Dioxide 24 20 - 32 08/28/2021 LABORATORY (CO2) mmol/L 7:19 AM UNIX MANAGER Anion Gap 7 3 - 14 08/28/2021 LABORATORY mmol/L 7:19 AM UNIX MANAGER Urea Nitrogen 11 7 - 30 08/28/2021 LABORATORY mg/dL 7:19 AM UNIX MANAGER Creatinine 0.69 0.52 - 08/28/2021 LABORATORY 1.04 mg/dL 7:19 AM UNIX MANAGER Calcium 9.1 8.5 - 10.1 08/28/2021 LABORATORY mg/dL 7:19 AM UNIX MANAGER Glucose 89 70 - 99 08/28/2021 LABORATORY mg/dL 7:19 AM UNIX MANAGER GFR Estimate >90 >60 08/28/2021 LABORATORY mL/min/1.7 7:19 AM UNIX MANAGER 3m2 Comment: Effective June 30, 2021 eGF Rcr in adults is calculated using the 2020 CKD-EPI creatinine equation which includ es age and gender (Serging Machine Operator et al., NEJ, DOI: 10.1056/IHMSsc0381993) Specimen Anatomical Collection Method / Collection Time Recei chelsie Time (Source) Location / Volume Laterality Blood STRUCTURE OF RIGHT Venipuncture / 08/28/2021 6:53 /02/2022 7:01 UPPER LIMB / Unknown AM UNIX MANAGER AM UNIX MANAGER Unknown Zachary Burrell MD LAB - BLOOD ORDERABLES Performing Organization Address City/State/ZIP Code Phon e Number LABORATORY [facility] [place] [address] Care Lab [address], Room [address] documented in this encounter Visit Diagnoses Diagnosis Paroxysmal supraventricular tachycardia (H) Paroxysmal supraventricular tachycardia SVT (supraventricular tachycardia) (H) Other specified cardiac dysrhythmias Paroxysmal supraventricular tachycardia (H) Paroxysmal supraventricular tachycardia SVT (supraventricular tachycardia) (H) Other specified cardiac dysrhythmias Paroxysmal supraventricular tachycardia (H) Paroxysmal supraventricular tachycardia documented in this encounter Admitting Diagnoses Diagnosis Paroxysmal supraventricular tachycardia (H) Paroxysmal supraventricular tachycardia SVT (supraventricular tachycardia) (H) Other specified cardiac dysrhythmias documented in this encounter Administered Medications Inactive Administered Medications - up to 3 most recent administrations Medication Order MAR Action Action Date Dose Rate Site lactated ringers infusion New Bag 08/28/2021 7:18 AM UNIX MANAGER 30 mL/hr at 30 mL/hr, Intravenous, CONTINUOUS, Start 2 hours pre-procedure and then per provider direction intra-procedure., Cardiac Pre-procedure, Starting on Tue08/28/21 at 0630, Until Tue08/28/21 at 0955 naloxone (NARCAN) injection 0.2 mg 0.2 mg, Intravenous, EVERY 2 MIN PRN, op ioid reversal, Starting on Tue08/28/21 at 1003, Administer intravenous route when available and notify provider when administered. For unintended sedation or respiratory depression if all of the below criteria are met: ~ respiratory rate LES S than or EQUAL to 8. ~SaO2 less than 92% and or/end-tidal CO2 is greater than 50. ~ the patient is receiving an opioid, has unintended sedations assessed as RASS (-3), and is cur rently not on mechanical ventilation. RASS scale moderate (-3) is movement or eye opening to voice but no eye contact. Patient Monitoring Once the patient has demonstrated a response to the naloxone, continue to monitor respiratory rate, depth, oxygen saturation and end-tidal CO2 (if available) every 15 mi nutes x 2, then every 30 minutes x 2, then every 1 hour x 1 after each naloxone dose. Consider tr ansfer to ICU if patient respiratory parameters have not improved after 4 nalox one doses. naloxone (NARCAN) injection 0.2 mg 0.2 mg, Intramuscular, EVERY 2 MIN PRN, opioid reversal, Starting on Tue08/28/21 at 1003, Administer intramuscular if an int ravenous route is not available and notify provider when administered. For unintend ed sedation or respiratory depression if all of the below criteria are met: ~ respiratory rate LESS than or EQUAL to 8. ~SaO2 less than 92% and or/end-tidal CO2 is greater th an 50. ~ the patient is receiving an opioid, has unintended sedations assessed as RASS (-3), and is currently not on mechanical ventilation. RASS scale moderate (-3) is movement or eye opening to voice but no eye contact. Patient Monitoring Once the patient has demonstrated a response to the naloxone, continue to m onitor respiratory rate, depth, oxygen saturation and end-tidal CO2 (if availab le) every 15 minutes x 2, then every 30 minutes x 2, then every 1 hour x 1 after each naloxone dose. Consider transfer to ICU if patient respiratory parameters have not improved after 4 naloxone doses. naloxone (NARCAN) injection 0.4 mg 0.4 mg, Intravenous, EVERY 2 MIN PRN, op ioid reversal, Starting on Tue08/28/21 at 1003, Administer intravenous route when available and notify provider when administered. For unintended sedation or respiratory depression if all of the below criteria are met: ~ respiratory rate LES S than or EQUAL to 8. ~ SaO2 less than 92% and or/end-tidal CO2 is greater than 50. ~ the patient is receiving an opioid, has unintended sedation assessed as RASS (-4 ) or (-5) and patient is currently not on mechanical ventilation. RASS scale (-4) is deep sedation with no response to voice but movement or eye opening to physical stimulation. R ASS scale (-5) is unarousable. Patient Monitoring Once the patient has demonstrated a response to the naloxone, continue to monitor respiratory rate, depth, oxygen saturation and end-tidal CO2 (if available) every 15 mi nutes x 2, then every 30 minutes x 2, then every 1 hour x 1 after each naloxone dose. Consider tr ansfer to ICU if patient respiratory parameters have not improved after 4 nalox one doses. naloxone (NARCAN) injection 0.4 mg 0.4 mg, Intramuscular, EVERY 2 MIN PRN, opioid reversal, Starting on Tue08/28/21 at 1003, Administer intramuscular if an int ravenous route is not available and notify provider when administered. For unintend ed sedation or respiratory depression if all of the below criteria are met: ~ res piratory rate LESS than or EQUAL to 8. ~ SaO2 less than 92% and or/end-tidal CO2 is greater maber n 50. ~ the patient is receiving an opioid, has unintended sedation assessed as RASS (-4) or (-5) and patient is currently not on mechanical ventilation. RA SS scale (-4) is deep sedation with no response to voice but movement or eye opening to physical stimulation. RASS scale (-5) is unarousa ble. Patient Monitoring Once the patient has demonstrated a response to the nalox one, continue to monitor respiratory rate, depth, oxygen saturation and end-tidal CO2 (if availab le) every 15 minutes x 2, then every 30 minutes x 2, then every 1 hour x 1 after each naloxone dose. Consider transfer to ICU if patient respiratory parameters have not improved after 4 naloxone doses. oxyCODONE-acetaminophen (PERCOCET) 5-325 MG per tablet 1 tablet 1 tablet, Oral, EVERY 4 HOURS PRN, other , mild or moderate pain, Starting on Tue08/28/21 at 1003, Maximum acetaminophen d ose from all sources= 75 mg/kg/day not to exceed 4 grams documented in this encounter Active and Recently Administered Medications Times are shown in [employer]. Continuous Medication Order 08/26/2021 08/27/2021 08/28/2021 lactated ringers infusion (CANCELED) 0718 (New Bag - Provider: Karen Guerrero, RN)1243 (Stopped - Provider: Karen Guerrero, VJ) at 30 mL/hr, Intravenous, CONTINUOUS, St art 2 hours pre-procedure and then per provider direction intra-procedure., Cardiac Pre-procedure, Starting on Tue08/28/21 at 0630, Until Tue08/28/21 at 0955 PRN Medication Order 08/26/2021 08/27/2021 08/28/2021 fentaNYL (PF) (SUBLIMAZE) injection (CANCELED) 0848 (Given - Provider: Cheo Lomeli, RN)0920 (Given - Provider: Cheo Lomeli, RN) ONCE PRN, Administer over 3-5 Minutes, S tarting on Tue08/28/21 at 0848, Cardiac Intra-procedure lidocaine 1 % (CANCELED) 0855 (G iven - Provider: Zachary Burrell MD)0900 (Given - Provider: Zachary Burrell MD)0938 (Given - Provider: Zachary Burrell MD) ONCE PRN, Starting on Tue08/28/21 at 0855, Cardiac Intra-procedu re midazolam (VERSED) injection (CANCELED) 0848 (Given - Provider: Cheo Lomeli RN)0920 (Given - Provider: Cheo Lomeli RN) Administer over 2 Minutes, ONCE PRN, Sta rting on Tue08/28/21 at 0848, Cardiac Intra-procedure naloxone (NARCAN) injection 0.2 mg 0.2 mg, Intravenous, EVERY 2 MIN PRN, op ioid reversal, Starting on Tue08/28/21 at 1003, Administer intravenous route when available and notify provider when administered. For unintended sedation or resp iratory depression if all of the below c riteria are met: ~ respiratory rate LESS than or EQUAL to 8. ~SaO2 less than 92% and or/end-tidal CO2 is greater than 50. ~ the patient is receiving an opioid, wiggins s unintended sedations assessed as RASS (-3), and is currently not on mechanical ventilation. RASS scale moderate (-3) is movement or eye opening to voice but no eye contact. Patient Monitoring Once the patient has demonstrated a response to the naloxone, continue to monitor respiratory rate, depth, oxygen saturation and end-tidal CO2 (if available) every 15 minutes x 2, then every 30 minutes x 2, the n every 1 hour x 1 after each naloxone d ose. Consider transfer to ICU if patient respiratory parameters have not improved after 4 naloxone doses. naloxone (NARCAN) injection 0.2 mg 0.2 mg, Intramuscular, EVERY 2 MIN PRN, opioid reversal, Starting on Tue08/28/21 at 1003, Administer intramuscular if an intravenous route is not available and notify provider when administered. For uni ntended sedation or respiratory depressi on if all of the below criteria are met: ~ respiratory rate LESS than or EQUAL to 8. ~SaO2 less than 92% and or/end-tidal CO2 is greater than 50. ~ the patient is receiving an opioid, has unintended sed ations assessed as RASS (-3), and is currently not on mechanical ventilation. RASS scale moderate (-3) is movement or eye opening to voice but no eye contact. Pat ient Monitoring Once the patient has dem onstrated a response to the naloxone, continue to monitor respiratory rate, depth, oxygen saturation and end-tidal CO2 (if available) every 15 minutes x 2, then e very 30 minutes x 2, then every 1 hour x 1 after each naloxone dose. Consider transfer to ICU if patient respiratory parameters have not improved after 4 naloxone doses. naloxone (NARCAN) injection 0.4 mg 0.4 mg, Intravenous, EVERY 2 MIN PRN, op ioid reversal, Starting on Tue08/28/21 at 1003, Administer intravenous route when available and notify provider when administered. For unintended sedation or resp iratory depression if all of the below c riteria are met: ~ respiratory rate LESS than or EQUAL to 8. ~ SaO2 less than 92% and or/end-tidal CO2 is greater than 50. ~ the patient is receiving an opioid, h as unintended sedation assessed as RASS (-4) or (-5) and patient is currently not on mechanical ventilation. RASS scale (-4) is deep sedation with no response to voice but movement or eye opening to phy sical stimulation. RASS scale (-5) is un arousable. Patient Monitoring Once the patient has demonstrated a response to the naloxone, continue to monitor respiratory rate, depth, oxygen saturation and end -tidal CO2 (if available) every 15 minut es x 2, then every 30 minutes x 2, then every 1 hour x 1 after each naloxone dose. Consider transfer to ICU if patient respiratory parameters have not improved after 4 naloxone doses. naloxone (NARCAN) injection 0.4 mg 0.4 mg, Intramuscular, EVERY 2 MIN PRN, opioid reversal, Starting on Tue08/28/21 at 1003, Administer intramuscular if an intravenous route is not available and notify provider when administered. For uni ntended sedation or respiratory depressi on if all of the below criteria are met: ~ respiratory rate LESS than or EQUAL to 8. ~ SaO2 less than 92% and or/end- tidal CO2 is greater than 50. ~ the patient i s receiving an opioid, has unintended se dation assessed as RASS (-4) or (-5) and patient is currently not on mechanical ventilation. RASS scale (-4) is deep sedation with no response to voice but moveme nt or eye opening to physical stimulatio n. RASS scale (-5) is unarousable. Patient Monitoring Once the patient has demonstrated a response to the naloxone, continue to monitor respiratory rate, depth, o xygen saturation and end-tidal CO2 (if a vailable) every 15 minutes x 2, then every 30 minutes x 2, then every 1 hour x 1 after each naloxone dose. Consider transfer to ICU if patient respiratory parameters have not improved after 4 naloxone doses. oxyCODONE-acetaminophen (PERCOCET) 5-325 MG per tablet 1 tablet 1 tablet, Oral, EVERY 4 HOURS PRN, other , mild or moderate pain, Starting on Tue08/28/21 at 1003, Maximum acetaminophen dose from all sources= 75 mg/kg/day not to exceed 4 grams documented in this encounter Additional Health Concerns Assessment Noted Time PHQ-9 Depression Total Score: 2 04/02/2021 10:19 AM CD T documented as of this encounter Care Teams Store Manager Relationship Specialty Start Date End Date Marija Edgar APRN PCP - General Nurse Practitioner 04/30/20 [employer] [address] [place], [place] [phone] Lita Oseguera Personal Advocate & 02/28/20 Liaison (PAL) Marija Edgar APRN Assigned PCP 06/08/20 [employer] [id number] [place], [place] [phone] Mynor Broussard MD Assigned Surgical 06/01/20 11/28/21 [address] Provider [address] [place], [place] [id number] Trevor-Keisha Peter, Assigned Neuroscience 06/04/20 MD Provider [address] [place], [place] [address] Zachary Burrell MD Assigned Heart and 10/05/20 04/02/22 [address] Vascular Provider [place], [place] [address] Diana Desir, [facility] Pharmacist Pharmacist 04/17/21 [address] [place], [place] [phone] Rain Galaviz Physician Heel Stiffener Dermatology 04/28/21 ROVERTO Paredes [address] [facility] [address] [place], [place] [phone] Summer Lara MD Assigned OBGYN Provider 05/31/21 03/12/[address] [place] [address] Tavia Wyatt MD MD Dermatology 07/14/21 documented as of this encounter
--- OUTSIDE RECORDS SUMMARY | 2022-04-28 01:10 | XMS_ITS | Encounter Summary ---
:2000 Author Organization [facility] Address [address] [place] [address]. [place] [address] Care Team Providers Name Role Phone Lita Oseguera Unavailable Unavailable Marija Edgar APRN HYDRO PLANT SITE MANAGER Primary Care Provider [phone] Marija Edgar APRN HYDRO PLANT SITE MANAGER Unavailable Mynor Broussard MD Unavailable Keisha Dotson MD Unavailable Zachary Burrell MD Unavailable Diana Desir [facility] Unavailable Rain Galaviz PA-C Unavailable Summer Lara MD Unavailable Tavia Wyatt MD Unavailable Unavailable Reason for Visit Auth/Cert Specialty Diagnoses / Procedures Referred By Contact Refer red To Contact Med Surg Diagnoses Paroxysmal supraventricular tachycardia (H) Super ventricular tachycardia [facility] Procedures HC EPHYS EVAL W/ ABLATION SUPRAVENT ARRHYTHMIA EP Ablation SVT [address] [phone] Phone: Referral ID Status Reason Start Date Expiration Date Visits Requ ested Visits Authorized [id number] 1 1 Encounter Details Date Type Department Care Team Description 08/28/2021 [facility] Zachary Burrell MD EP Ablation SVT [facility] Heart [facility] [address] [address] [address] [place] [phone] [phone] Surgery Details Date/Time Status Location OR Service Patient Class Case Case Trauma Class Type Case? 08/28/21 8:30 Posted SH HEART SH Cath Cardiology Outpatient AM CARDIAC Lab 4 TURNING SANDER OPERATOR Panel 1 Procedure LRB Anes Op Region Wound Class Commen ts EP Ablation SVT N/A Conscious Sedation Heart S [place] Ablation, carmel Burrell mailed to pt, pt arrive at 6:30 Surgeon Surgeon Role Service Panel Zachary Burrell MD Primary Cardiology 1 documented in this encounter Social History Tobacco Use Types Packs/Day Years [...] week 09/22/2021 How often do you attend religion or mu-ism services? Never 09/22/2021 Do you belong to any clubs or organizations such as No 09/22/2021 religion groups, unions, fraternal or athletic groups, or [...] with No / Unsure 08/28/2021 6:02 AM FIRE AND EXPLOSION INVESTIGATOR someone who was confirmed or suspected to have Coronavirus / COVID-19? documented as of this encounter Last Filed Vital Signs Vital Sign Reading Time Taken Comments Blood Pressure 123/71 08/28/2021 12:30 PM FIRE AND EXPLOSION INVESTIGATOR Pulse 93 08/28/2021 12:30 PM FIRE AND EXPLOSION INVESTIGATOR Temperature 36.8 ??C (98.2 ??F) 08/28/2021 6:18 AM FIRE AND EXPLOSION INVESTIGATOR Respiratory Rate 27 08/28/2021 12:30 PM FIRE AND EXPLOSION INVESTIGATOR Oxygen Saturation 93% 08/28/2021 12:30 PM FIRE AND EXPLOSION INVESTIGATOR Inhaled Oxygen Concentration - - Weight 82.2 kg (181 lb 4.8 oz) 08/28/2021 6:18 AM FIRE AND EXPLOSION INVESTIGATOR Height 167.6 cm (5' 6) 08/28/2021 6:18 AM FIRE AND EXPLOSION INVESTIGATOR Body Mass Index 29.26 08/28/2021 6:18 AM FIRE AND EXPLOSION INVESTIGATOR documented in this encounter Discharge Instructions Discharge [...] lay flat for 2 hours. ??? Call [facility] as soon as you can. [...] a phone call on Tuesday from an VJ Vaughan. Call the clinic if: ??? You have [...] The irregular beats should occur less often. [facility]: [phone] ( 8am-5pm M-F) Nichole Vaughan [phone] option 2 (7 days a week) supervisor television chassis repair Mechanical Technologist AND EXPLOSION INVESTIGATOR documented in this encounter Medications at Time [...] instructions reviewed: Yes Additional education/resources provided: Patient/patient business development representative verbalizes understanding: Yes Patient discharging on new medications: No Medication education completed: Yes Discharge Plans: Discharge location: home Discharge ride contacted: Yes Approximate discharge time: 1415 Discharge Criteria: Discharge criteria met and vital signs stable: Yes Patient Belongs: Patient belongings returned to patient: Yes Karen Guerrero RN AND EXPLOSION INVESTIGATOR Zachary Burrell MD - 08/28/2021 9:47 AM CST SVT ablation: Typical AVNRT, easily inducible. Successful ablation. No complications. May be discharged around 2 pm. Resume home medications. AND EXPLOSION INVESTIGATOR Karen Guerrero RN - 08/28/2021 7:02 AM [...] If the visitor has positive symptoms, notify pressroom supervisor/manger Per policy, the visitor will need [...] PPE when entering room 4. Provider evaluation AND EXPLOSION INVESTIGATOR Rain Toro RN - 08/27/2021 5:42 PM CST Pt called at home to bring own breast pump if possible- patient states hers does not work and will need one while she is here for her procedure tomorrow. Spoke with maternal RN and wine consultant regarding pumping and dumping after Fentanyl and Versed-patient to dump 1-2 times post procedure sedation before feeding baby. Patient notified and updated. AND EXPLOSION INVESTIGATOR documented in this encounter Plan of Treatment Upcoming Encounters Date Type Specialty Care Team Description 04/28/2022 Office Visit Family Practice Anthony Doe PA-C [address] [place], [place] [phone] (Wo aldo) 05/03/2022 Office Visit Dermatology Neil Kent M D [address] [place] [address] (Wo rk) 05/05/2022 Office Visit Optometry Yeny David, OD [address] [place] [address] (Wo rk) 05/11/2022 Virtual Visit Pharm D Diana Desir , [facility] [address] [place], [place] [phone] (Wo rk) 05/14/2022 Office Visit Cardiology Livan Sharif MD [address] [place], [place] [address] (Wo rk) 05/31/2022 Office Visit Family Practice Valery Veronica PA-C [address] [place] [address] (Wo rk) documented as of this encounter Procedures Procedure Name Priority Date/Time Associated Diagnosis Comme nts EKG 12-LEAD, TRACING Routine 08/28/2021 10:12 Res ults for this ONLY AM FIRE AND EXPLOSION INVESTIGATOR procedure are i n the results section. EP ABLATION SVT Routine 08/28/2021 9:58 Paroxysmal Results f or this AM FIRE AND EXPLOSION INVESTIGATOR supraventricular procedure a re in tachycardia (H) the results section. EKG 12-LEAD, TRACING STAT 08/28/2021 7:08 Resu lts for this ONLY AM FIRE AND EXPLOSION INVESTIGATOR procedure are i n the results section. HCG QUANTITATIVE STAT 08/28/2021 6:53 Results for this AM FIRE AND EXPLOSION INVESTIGATOR procedure are i n the results section. BASIC METABOLIC STAT 08/28/2021 6:53 Results f or this PANEL AM FIRE AND EXPLOSION INVESTIGATOR procedure are i n the results section. CBC WITH PLATELETS STAT 08/28/2021 6:53 Result s for this AM FIRE AND EXPLOSION INVESTIGATOR procedure are i n the results section. documented in this encounter Results EKG 12-lead, tracing only (08/28/2021 10:12 AM FIRE AND EXPLOSION INVESTIGATOR) Component Value Ref Range Test Analysis Performed Pathologis t Method Time At Signature Systolic Blood mmHg RADIOLOGY Pressure RESULTS Diastolic Blood mmHg RADIOLOGY Pressure RESULTS Ventricular Rate 98 BPM RADIOLOGY RESULTS Atrial Rate 98 BPM RADIOLOGY RESULTS DE Interval 140 ms RADIOLOGY RESULTS QRS Duration 88 ms RADIOLOGY RESULTS QT 334 ms RADIOLOGY RESULTS QTc 426 ms RADIOLOGY RESULTS P [place] 43 degrees RADIOLOGY RESULTS R AXIS 69 degrees RADIOLOGY RESULTS T [place] 49 degrees RADIOLOGY RESULTS Interpretation Sinus rhythm RADIOLOGY ECG Normal ECG RESULTS When compared with ECG of 28-AUG-2021 07:08, (unconfirmed) No significant change was found Confirmed by MD ZABRINA, HAYLEE Ward ([id number]), offline editor BJ BAKER ([id number]) on 08/31/2021 2:07:55 PM Specimen Anatomical Collection Method Collection Time Receive d Time (Source) Location / / Volume Laterality 08/28/2021 10:12 08/31/2021 2:07 AM FIRE AND EXPLOSION INVESTIGATOR PM FIRE AND EXPLOSION INVESTIGATOR Zachary Burrell MD ECG ORDERABLES Performing Organization Address City/State/ZIP Code Phon e Number RADIOLOGY RESULTS EP ABLATION SVT (08/28/2021 9:58 AM FIRE AND EXPLOSION INVESTIGATOR) Anatomical Region Laterality Modality Radio Fluoroscopy Specimen (Source) Anatomical Location Collection Method / Collectio n Time Received Time / Laterality Volume Narrative 08/28/2021 2:03 PM FIRE AND EXPLOSION INVESTIGATOR EP ABLATION 08/28/2021 8:55 AM NAME OF [...] using the Seldinger technique a 5 [facility] decapolar catheter was inserted through the left [...] a stopcock. ZACHARY BURRELL MD Erica Farrell COAL HANDLING SUPERVISOR [facility] CV ELECTROPHYSIOLOGY ORDERABLES EKG 12-lead, tracing only (08/28/2021 7:08 AM FIRE AND EXPLOSION INVESTIGATOR) Component Value Ref Range Test Analysis Performed Pathologis t Method Time At Signature Systolic Blood mmHg RADIOLOGY Pressure RESULTS Diastolic Blood mmHg RADIOLOGY Pressure RESULTS Ventricular Rate 102 BPM RADIOLOGY RESULTS Atrial Rate 102 BPM RADIOLOGY RESULTS DE Interval 142 ms RADIOLOGY RESULTS QRS Duration 82 ms RADIOLOGY RESULTS QT 344 ms RADIOLOGY RESULTS QTc 448 ms RADIOLOGY RESULTS P [place] 71 degrees RADIOLOGY RESULTS R AXIS 80 degrees RADIOLOGY RESULTS T [place] 46 degrees RADIOLOGY RESULTS Interpretation Sinus tachycardia RADIOLO GY ECG Otherwise normal ECG RESULTS When compared with ECG of 31-JUL-2021 15:11, No significant change was found Confirmed by MD ZABRINA, HAYLEE Ward ([id number]), offline editor BJ BAKER ([id number]) on 08/31/2021 2:16:42 PM Specimen Anatomical Collection Method Collection Time Receive d Time (Source) Location / / Volume Laterality 08/28/2021 7:08 AM 2 2:16 FIRE AND EXPLOSION INVESTIGATOR PM FIRE AND EXPLOSION INVESTIGATOR Zachary Burrell MD ECG ORDERABLES Performing Organization Address City/State/ZIP Code Phon e Number RADIOLOGY RESULTS HCG quantitative (08/28/2021 6:53 AM FIRE AND EXPLOSION INVESTIGATOR) Analysis Performed At Patho logist Time Signature hCG Quantitative <1 0 - 5 IU/L 08/28/2021 LABORATO RY 7:23 AM FIRE AND EXPLOSION INVESTIGATOR Comment: Adult: 0-5 IU/L for healthy non- person Neonates: Should be within normal ranges by 2 days after Specimen Anatomical Collection Method / Collection Time Recei chelsie Time (Source) Location / Volume Laterality Blood STRUCTURE OF RIGHT Venipuncture / 08/28/2021 6:53 08/11 7:01 UPPER LIMB / Unknown AM FIRE AND EXPLOSION INVESTIGATOR AM FIRE AND EXPLOSION INVESTIGATOR Unknown Zachary Burrell MD LAB - BLOOD ORDERABLES Performing Organization Address City/State/ZIP Code Phon [place] [address] [facility] Lab [address] 1st floor, Room [address]B (ABNORMAL) CBC with platelets (08/28/2021 6:53 AM FIRE AND EXPLOSION INVESTIGATOR) Patholo gist Method Time Signature WBC Count 7.1 4.0 - 11.0 08/28/2021 LABORATORY 10e3/uL 7:05 AM FIRE AND EXPLOSION INVESTIGATOR RBC Count 5.23 (H) 3.80 - 08/28/2021 LABORATORY 5.20 7:05 AM FIRE AND EXPLOSION INVESTIGATOR 10e6/uL Hemoglobin 13.2 11.7 - 08/28/2021 LABORATORY 15.7 g/dL 7:05 AM FIRE AND EXPLOSION INVESTIGATOR Hematocrit 41.2 35.0 - 08/28/2021 LABORATORY 47.0 % 7:05 AM FIRE AND EXPLOSION INVESTIGATOR MCV 79 78 - 100 08/28/2021 LABORATORY fL 7:05 AM FIRE AND EXPLOSION INVESTIGATOR MCH 25.2 (L) 26.5 - 08/28/2021 LABORATORY 33.0 pg 7:05 AM FIRE AND EXPLOSION INVESTIGATOR MCHC 32.0 31.5 - 08/28/2021 LABORATORY 36.5 g/dL 7:05 AM FIRE AND EXPLOSION INVESTIGATOR RDW 13.8 10.0 - 08/28/2021 LABORATORY 15.0 % 7:05 AM FIRE AND EXPLOSION INVESTIGATOR Platelet Count 262 150 - 450 08/28/2021 LABORATORY 10e3/uL 7:05 AM FIRE AND EXPLOSION INVESTIGATOR Specimen Anatomical Collection Method / Collection Time Recei chelsie Time (Source) Location / Volume Laterality Blood STRUCTURE OF RIGHT Venipuncture / 08/28/2021 6:53 /02/2022 7:01 UPPER LIMB / Unknown AM FIRE AND EXPLOSION INVESTIGATOR AM FIRE AND EXPLOSION INVESTIGATOR Unknown Zachary Burrell MD LAB - BLOOD ORDERABLES Performing Organization Address City/State/ZIP Code Phon e Number [facility]ATORY [place] [address] [phone] [facility] Lab [address] 1[address] floor, Room 20B Basic metabolic panel (08/28/2021 6:53 AM FIRE AND EXPLOSION INVESTIGATOR) athologist Signature Sodium 136 133 - 144 08/28/2021 LABORATORY mmol/L 7:19 AM FIRE AND EXPLOSION INVESTIGATOR Potassium 3.9 3.4 - 5.3 08/28/2021 LABORATORY mmol/L 7:19 AM FIRE AND EXPLOSION INVESTIGATOR Chloride 105 94 - 109 08/28/2021 LABORATORY mmol/L 7:19 AM FIRE AND EXPLOSION INVESTIGATOR Carbon Dioxide 24 20 - 32 08/28/2021 LABORATORY (CO2) mmol/L 7:19 AM FIRE AND EXPLOSION INVESTIGATOR Anion Gap 7 3 - 14 08/28/2021 LABORATORY mmol/L 7:19 AM FIRE AND EXPLOSION INVESTIGATOR Urea Nitrogen 11 7 - 30 08/28/2021 LABORATORY mg/dL 7:19 AM FIRE AND EXPLOSION INVESTIGATOR Creatinine 0.69 0.52 - 08/28/2021 LABORATORY 1.04 mg/dL 7:19 AM FIRE AND EXPLOSION INVESTIGATOR Calcium 9.1 8.5 - 10.1 08/28/2021 LABORATORY mg/dL 7:19 AM FIRE AND EXPLOSION INVESTIGATOR Glucose 89 70 - 99 08/28/2021 LABORATORY mg/dL 7:19 AM FIRE AND EXPLOSION INVESTIGATOR GFR Estimate >90 >60 08/28/2021 LABORATORY mL/min/1.7 7:19 AM FIRE AND EXPLOSION INVESTIGATOR 3m2 Comment: Effective June 30, 2021 eGF Rcr in adults is calculated using the 2020 CKD-EPI creatinine equation which includ es age and gender (Zipper Ironer et al., NEJM, DOI: 10.1056/OVLDas7139212) Specimen Anatomical Collection Method / Collection Time Recei chelsie Time (Source) Location / Volume Laterality Blood STRUCTURE OF RIGHT Venipuncture / 08/28/2021 6:53 /02/2022 7:01 UPPER LIMB / Unknown AM FIRE AND EXPLOSION INVESTIGATOR AM FIRE AND EXPLOSION INVESTIGATOR Unknown Zachary Burrell MD LAB - BLOOD ORDERABLES Performing Organization Address City/State/ZIP Code Phon e Number [place] [address] Care Lab [address] 1[address] floor, Room 20B documented in this [...] MAR Action Action Date Dose Rate Site fentaNYL (PF) (SUBLIMAZE) Given 08/28/2021 9:20 AM FIRE AND EXPLOSION INVESTIGATOR 50 mcg injection ONCE PRN, Administer over 3-5 Minutes, Starting on Tue08/28/21 at 0848, Cardiac Intra-procedure Given 08/28/2021 8:48 AM FIRE AND EXPLOSION INVESTIGATOR 50 mcg lactated ringers infusion New Bag 08/28/2021 7:18 AM FIRE AND EXPLOSION INVESTIGATOR 30 mL/hr at 30 mL/hr, Intravenous, CONTINUOUS, Start 2 hours pre-procedure and then per provider direction intra-procedure., Cardiac Pre-procedure, Starting on Tue08/28/21 at 0630, Until Tue08/28/21 at 0955 lidocaine 1 % Given 08/28/2021 9:38 AM FIRE AND EXPLOSION INVESTIGATOR 5 mLs Right Groin ONCE PRN, Starting on Tue08/28/21 at 0855, Cardiac Intra-procedure Given 08/28/2021 9:00 AM FIRE AND EXPLOSION INVESTIGATOR 10 mLs Right Groin Given 08/28/2021 8:55 AM FIRE AND EXPLOSION INVESTIGATOR 8 mLs Neck midazolam (VERSED) injection Given 08/28/2021 9:20 AM FIRE AND EXPLOSION INVESTIGATOR 1 mg Administer over 2 Minutes, ONCE PRN, Starting on Tue08/28/21 at 0848, Cardiac Intra-procedure Given 08/28/2021 8:48 AM FIRE AND EXPLOSION INVESTIGATOR 1 mg naloxone (NARCAN) injection 0.2 mg 0.2 mg, [...] than 92% and or/end-tidal CO2 is greater amber n 50. ~ the patient is receiving [...] Recently Administered Medications Times are shown in FIRE AND EXPLOSION INVESTIGATOR. Continuous Medication Order 08/26/2021 08/27/2021 08/28/2021 lactated [...] (CANCELED) 0848 (Given - Provider: Cheo Lomeli, VJ)0920 (Given - Provider: Cheo Lomeli RN) ONCE PRN, Administer over 3-5 Minutes, [...] documented as of this encounter Care Teams Marble Ceiling Installer Relationship Specialty Start Date End Date Marija Edgar APRN PCP - General Nurse Practitioner 04/30/20 HYDRO PLANT SITE MANAGER [address] [place], [place] [phone] Lita Oseguera Personal Advocate & 02/28/20 Liaison (PAL) Marija Edgar APRN Assigned PCP 06/08/20 HYDRO PLANT SITE MANAGER [address] [place] [address] Mynor Broussard MD Assigned Surgical 06/01/20 11/28/21 [address] Provider [address] [place] [address] Keisha Dotson, Assigned Neuroscience 06/04/20 MD Provider [address] [place] [address] Zachary Burrell MD Assigned Heart and 10/05/20 04/02/22 [address] [place] [address] Diana Desir, [facility] Pharmacist Pharmacist 04/17/[address] [place] [address] Rain Galaviz Physician Potato Pancake Frier Dermatology 04/28/21 ROVERTO Paredes [address] [facility] [address] Summer Lara MD Assigned OBGYN Provider 05/31/21 03/12/[address] [place], [place] [address] Tavia Wyatt MD MD Dermatology 07/14/21 documented as of this encounter
--- OUTSIDE RECORDS SUMMARY | 2022-04-28 01:10 | XMS_ITS | Encounter Summary ---
:2000 Author Organization [facility] Address [address] [place] [address] Care Team Providers Name Role Phone Lita Oseguera Unavailable Unavailable Marija Edgar APRN WORKERS' COMPENSATION MAGISTRATE Primary Care Provider [phone] Marija Edgar APRN WORKERS' COMPENSATION MAGISTRATE Unavailable Mynor Broussard MD Unavailable Keisha Dotson MD Unavailable Galo Burrell MD Unavailable Diana Desir [facility] Unavailable Rain Galaviz PA-C Unavailable [phone] Summer Lara MD Unavailable Tavia Wyatt MD Unavailable Unavailable Encounter Details Date Type Department Care Team Description 08/27/2021 Travel Social History Tobacco Use Types Packs/Day [...] week 09/22/2021 How often do you attend oriental orthodox or restoration services? Never 09/22/2021 Do you belong to any clubs or organizations such as No 09/22/2021 oriental orthodox groups, unions, fraternal or athletic groups, or [...] with No / Unsure 08/27/2021 8:21 AM CASING 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 someone who was confirmed or suspected to have Coronavirus / COVID-19? documented as of this encounter Plan of Treatment Upcoming Encounters Date Type Specialty Care Team Description 04/28/2022 Office Visit Family Practice Anthony Doe, [place] [address] [place], [place] [phone] (Wo rk) 05/03/2022 Office Visit Dermatology Neil Kent M D [address] [place], [place] [phone] (Wo rk) 05/05/2022 Office Visit Optometry Yeny David, OD [address] [place] [phone] (Jefferson carlson) 05/11/2022 Virtual Visit Pharm D Diana Desir , [facility] [address] [place], [place] [address] (Wo rk) 05/14/2022 Office Visit Cardiology Livan Sharif MD [address] [place] [address] (Wo rk) 05/31/2022 Office Visit Family Practice Valery Veronica , PA-C [address] [place] [address] (Wo rk) documented as of this encounter Visit Diagnoses Not on filedocumented in this encounter Additional Health Concerns Assessment Noted Time PHQ-9 Depression Total Score: 2 04/02/2021 10:19 AM CD T documented as of this encounter Care Teams Early Education Teacher Relationship Specialty Start Date End Date Marija Edgar APRN PCP - General Nurse Practitioner 04/30/20 WORKERS' COMPENSATION MAGISTRATE [address] [place] [address] Lita Oseguera Personal Advocate & 02/28/20 Liaison (PAL) Marija Edgar APRN Assigned PCP 06/08/20 WORKERS' COMPENSATION MAGISTRATE [address] [place] [address] Mynor Broussard MD Assigned Surgical 06/01/20 11/28/21 [address] Provider [address] [place] [address] Trevor-Keisha Peter, Assigned Neuroscience 06/04/20 MD Provider [address] [place] [address] Galo Burrell MD Assigned Heart and 10/05/20 04/02/22 [address] Vascular Provider [place] [phone] Diana Desir, [facility] Pharmacist Pharmacist 04/17/21 [address] [place], [place] [address] Rain Galaviz Physician Hyperbaric Tech Dermatology 04/28/21 ROVERTO Paredes [address] [place], [place] [phone] Summer Lara MD Assigned OBGYN Provider 05/31/21 03/12/[address] [place], [place] [phone] Tavia Wyatt MD MD Dermatology 07/14/21 documented as of this encounter
--- OUTSIDE RECORDS SUMMARY | 2022-04-28 01:10 | XMS_ITS | Encounter Summary ---
:2000 Author Organization [facility] Address [address] [place] [address] Care Team Providers Name Role Phone Lita Oseguera Unavailable Unavailable Marija Edgar APRN ENVIRONMENTAL REMEDIATION CONSULTANT Primary Care Provider [phone] Marija Edgar APRN ENVIRONMENTAL REMEDIATION CONSULTANT Unavailable Mynor Broussard MD Unavailable Keisha Dotson MD Unavailable Galo Burrell MD Unavailable Diana Desir [facility] Unavailable Rain Galaviz PA-C Unavailable Summer Lara MD Unavailable Tavia Wyatt MD Unavailable Unavailable Reason for Referral Diagnostic Imaging XR (Routine) - Pending Review Specialty Diagnoses / Procedures Referred By Contact Refer red To Contact Diagnoses Neck pain Johnny Murillo, Procedures XR Cervical Spine 2/[address] [place], [place] [address] Referral ID Status Reason Start Date Expiration Date Visits V isits Requested Authorized [id number] Pending 08/17/2021 08/17/2022 1 1 Review LINE Encounter Details Date Type Department Care Team Description 08/17/2021 Orders Only [facility] Johnny Murillo Neck pain (Primary Dx) Orthopedic Clinic MD Ish [address] 4th Floor [address] [place], [place] [phone] (Wo rk) [address] [phone] Social History Tobacco Use Types Packs/Day Years [...] week 09/22/2021 How often do you attend muslim or zoroastrian services? Never 09/22/2021 Do you belong to any clubs or organizations such as No 09/22/2021 muslim groups, unions, fraternal or athletic groups, or [...] with No / Unsure 08/11/2021 8:54 AM SORT LINE someone who was confirmed or suspected to have Coronavirus / COVID-19? documented as of this encounter Plan of Treatment Upcoming Encounters Date Type Specialty Care Team Description 04/28/2022 Office Visit [facility] Anthony Doe PA-C [address] [place], [place] [phone] (Wo rk) 05/03/2022 Office Visit Dermatology Neil Kent M D [address] [place], [place] [phone] (Wo rk) 05/05/2022 Office Visit Optometry Yeny David, OD [address] [facility] [facility] [address] [place], [place] [phone] (Wo rk) 05/11/2022 Virtual Visit Pharm D Diana Desir , [facility] [address] [place], [place] [phone] (Wo rk) 05/14/2022 Office Visit Cardiology Livan Sharif MD [address] [facility] [address] [place], [place] [phone] (Wo rk) 05/31/2022 Office Visit [facility] Valery Veronica PA-C [address] [place], [place] [address] (Wo rk) documented as of this encounter Results XR Cervical Spine 2/3 Views (08/27/2021 8:40 AM SORT LINE) Anatomical Region Laterality Modality Spine Computed Radiography Specimen (Source) Anatomical Location Collection Method / Collectio n Time Received Time / Laterality Volume Impressions 08/27/2021 9:50 AM SORT LINE Impression: No acute osseous abnormality cervical spine. I have personally reviewed the examinati on and initial interpretation and I agree with the findings. CAN MD ANYI Narrative 08/27/2021 9:50 AM SORT LINE Exam: XR CERVICAL SPINE /3 VWS, 08/27/2021 9:26 AM Indication: Neck pain Comparison: CT cervical spine 08/03/2021 and C-spine radiographs 05/17/2019 Findings: AP and lateral views of the cervical spi ne. There is normal alignment of the cervical vertebrae. The vertebral bodies and disc spaces are normal in height. No acute fracture or s ubluxation. The paraspinous soft tissues are unremarkable. Procedure Note Kali De Santiago MD - 08/27/2021 Exam: XR CERVICAL SPINE 3 VWS, 08/27/19 9:26 AM Indication: Neck pain Comparison: CT cervical spine 08/03/2021 and C-spine radiographs 05/17/2019 Findings: AP and lateral views of the cervical spi ne. There is normal alignment of the cervical vertebrae. The vertebral bodies and disc spaces are normal in height. No acute fracture or s ubluxation. The paraspinous soft tissues are unremarkable. Impression: No acute osseous abnormality cervical spine. I have personally reviewed the examinati on and initial interpretation and I agree with the findings. KALI DE SANTIAGO MD Johnny Murillo MD IMG DIAGNOSTIC IMAGING DONYA HERRERA documented in this encounter Visit Diagnoses Diagnosis Neck pain - Primary Cervicalgia Neck pain Cervicalgia documented in this encounter Additional Health Concerns Assessment Noted Time PHQ-9 Depression Total Score: 2 04/02/2021 10:19 AM CD T documented as of this encounter Care Teams Religious Activities Director Relationship Specialty Start Date End Date Mraija Edgar APRN PCP - General Nurse Practitioner 04/30/20 ENVIRONMENTAL REMEDIATION CONSULTANT [address] [place] [address] Lita Oseguera Personal Advocate & 02/28/20 Liaison (PAL) Marija Edgar APRN Assigned PCP 06/08/20 ENVIRONMENTAL REMEDIATION CONSULTANT [address] [place] [address] Mynor Broussard MD Assigned Surgical 06/01/20 11/28/21 [address] Provider 500 [place] [address] Keisha Dotson, Assigned Neuroscience 06/04/20 MD Provider 909 [place] [address] Galo Burrell MD Assigned Heart and 10/05/20 04/02/[address] [place] [address] Diana Desir, [facility] Pharmacist Pharmacist 04/17/21 [address] [place] [address] Rain Galaviz Physician Base Brander Dermatology 04/28/21 ROVERTO Paredes [address] [facility] [address] [place] [address] Summer Lara MD Assigned OBGYN Provider 05/31/21 03/12/[address] [place] [address] Tavia Wyatt MD MD Dermatology 07/14/21 documented as of this encounter
--- OUTSIDE RECORDS SUMMARY | 2022-04-28 01:10 | XMS_ITS | Encounter Summary ---
:2000 Author Organization [facility] Address [address] [place] [address] Care Team Providers Name Role Phone Lita Oseguera Unavailable Unavailable Marija Edgar APRN SCHOOL DIRECTOR Primary Care Provider [phone] Marija Edgar APRN SCHOOL DIRECTOR Unavailable Mynor Broussard MD Unavailable Keisha Dotson MD Unavailable Galo Burrell MD Unavailable Diana Desir [facility] Unavailable Rain Galaviz PA-C Unavailable Summer Lara MD Unavailable Tavia Wyatt MD Unavailable Unavailable Reason for Visit Diagnostic Imaging XR (Routine) - Pending Review Specialty Diagnoses / Procedures Referred By Contact Refer red To Contact Diagnoses Neck pain Johnny Murillo, Procedures XR Cervical Spine 2/[address] [place], [place] [address] Referral ID Status Reason Start Date Expiration Date Visits V isits Requested Authorized [id number] Pending 08/17/2021 08/17/2022 1 1 Review Encounter Details Date Type Department Care Team Description 08/27/2021 Ancillary Procedure [facility], Jonath an Neck pain Orthopedic Osmar Deng MD [address] [place], [place] 4th Floor [address] [place], [place] [phone] (Wo rk) [address] [phone] Social History Tobacco Use Types Packs/Day Years [...] week 09/22/2021 How often do you attend caodaism or sikh services? Never 09/22/2021 Do you belong to any clubs or organizations such as No 09/22/2021 caodaism groups, unions, fraternal or athletic groups, or [...] with No / Unsure 08/27/2021 8:21 AM SUPERVISOR CELL ROOM someone who was confirmed or suspected to have Coronavirus / COVID-19? documented as of this encounter Plan of Treatment Upcoming Encounters Date Type Specialty Care Team Description 04/28/2022 Office Visit [facility] Anthony Doe PA-C [address] [place], [place] [phone] (Wo rk) 05/03/2022 Office Visit Dermatology Neil Kent M D [address] [place], [place] [phone] (Wo rk) 05/05/2022 Office Visit Optometry Yeny David, OD [address] [facility] [place] [address] (Wo rk) 05/11/2022 Virtual Visit Pharm D Diana Desir , [facility] [address] [place], [place] [phone] (Wo rk) 05/14/2022 Office Visit Cardiology Livan Sharif MD [address] [facility] [address] [place], [place] [address] (Wo rk) 05/31/2022 Office Visit [facility] Valery Veronica PA-C [address] [place], [place] [address] (Wo rk) documented as of this encounter Procedures Procedure Name Priority Date/Time Associated Diagnosis Comme nts XR CERVICAL SPINE Routine 08/27/2021 8:40 AM Neck pain Resu lts for this 2/3 VIEWS SUPERVISOR CELL ROOM procedure are i n the results section. documented in this encounter Results XR Cervical Spine 2/3 Views (08/27/2021 8:40 AM SUPERVISOR CELL ROOM) Anatomical Region Laterality Modality Spine Computed Radiography Specimen (Source) Anatomical Location Collection Method / Collectio n Time Received Time / Laterality Volume Impressions 08/27/2021 9:50 AM SUPERVISOR CELL ROOM Impression: No acute osseous abnormality cervical spine. I have personally reviewed the examinati on and initial interpretation and I agree with the findings. CAN ROSASUTEMIZ, MD Narrative 08/27/2021 9:50 AM SUPERVISOR CELL ROOM Exam: XR CERVICAL SPINE /3 VWS, 08/27/2021 [...] MD - 08/27/2021 Exam: XR CERVICAL SPINE /3 VWS, 08/27/19 22 9:26 AM Indication: Neck pain Comparison: CT [...] encounter Visit Diagnoses Diagnosis Neck pain Cervicalgia documented in this encounter Additional Health Concerns Assessment Noted Time PHQ-9 Depression Total Score: 2 04/02/2021 10:19 AM CD T documented as of this encounter Care Teams Water Filtration Technician Relationship Specialty Start Date End Date Marija Edgar APRN PCP - General Nurse Practitioner 04/30/20 SCHOOL DIRECTOR [address] [place] [address] Lita Oseguera Personal Advocate & 02/28/20 Liaison (PAL) Marija Edgar APRN Assigned PCP 06/08/20 SCHOOL DIRECTOR [address] [place] [address] Mynor Broussard MD Assigned Surgical 06/01/20 11/28/[address] Provider [address] [place], [place] [address] Keisha Dotosn, Assigned Neuroscience 06/04/20 MD Provider 909 [place], [place] [address] Galo Burrell MD Assigned Heart and 10/05/20 04/02/[address] Vascular Provider [place], [place] [address] Diana Desir, [facility] Pharmacist Pharmacist 04/17/21 [address] [place] [address] Rain Galaviz Physician Processing Supervisor Dermatology 04/28/21 ROVERTO Paredes [address] [facility] [address] [place] [address] Summer Lara MD Assigned OBGYN Provider 05/31/21 03/12/[address] [place], [place] [address] Tavia Wyatt MD MD Dermatology 07/14/21 documented as of this encounter
--- OUTSIDE RECORDS SUMMARY | 2022-04-28 01:10 | XMS_ITS | Encounter Summary ---
:2000 Author Organization [facility] Address [address] [place] [address] Care Team Providers Name Role Phone Lita Oseguera Unavailable Unavailable Marija Edgar APRN LINE TENDER FLAKEBOARD Primary Care Provider [phone] Marija Edgar APRN LINE TENDER FLAKEBOARD Unavailable Mynor Broussard MD Unavailable Keisha Dotson MD Unavailable Galo Burrell MD Unavailable Diana Desir [facility] Unavailable Rain Galaviz PA-C Unavailable Summer Lara MD Unavailable Tavia Wyatt MD Unavailable Unavailable Reason for Referral Consultation (Routine) - Pending Review Specialty Diagnoses / Procedures Referred By Contact Refer red To Contact Cardiovascular Disease Diagnoses SVT (supraventricular tachycardia) (H) Galo Burrell MD [address] [facility] [address] [place] [address] Referral ID Status Reason Start Date Expiration Date Visits V isits Requested Authorized [id number] Pending 08/27/2021 08/27/2022 1 1 Review FACTURING TECH Reason for Visit Reason Onset Date Comments Clinic Care Coordination - Initial 08/27/2021 Pre S VT ablation Encounter Details Date Type Department Care Team Description 08/27/2021 Telephone [facility] Heart Alexus Avalos C linic Care Coordination Clinic Cesar RN - Initial (Pre SVT [address] ablation) [facility] [address] [place] [phone] Social History Tobacco Use Types Packs/Day [...] week 09/22/2021 How often do you attend anabaptist or orthodox services? Never 09/22/2021 Do you belong to any clubs or organizations such as No 09/22/2021 anabaptist groups, unions, fraternal or athletic groups, or [...] place to sleep or slept in a penitentiary (including now)? Education Answer Date Recorded What is the highest level of school you have completed or 12 th grade 08/07/2020 the highest degree you have received? Sex Assigned at Date Recorded Female 03/02/2021 5:45 PM CDT COVID-19 Exposure Response Date Recorded In the last month, have you been in contact with No / Unsure 08/27/2021 8:21 AM MANUFACTURING TECH someone who was confirmed or suspected to have Coronavirus / COVID-19? documented as of this encounter Miscellaneous Notes Telephone Encounter - Alexus Avalos RN - 08/27/2021 1:54 PM CST Pt called wondering if she could bring her 7 1/2 mo baby and mother to her ablation. States that baby does not feed off the bottle well. Told pt that will need to discuss this with [facility]. Call [facility] and then Mily who states that a baby can NOT come into the [facility] area. Pt statesthat she will figure something out, but needs to have her ablation. Pt is aware that she will arriveat 0630 and procedure is at 0830. Pt aware that she will have 4 hour bedrest post procedure and thenif doing well and no complications pt would be discharged that day. Pt is not on a diuretic or diabetic medications and thus has nothing to hold. Pt aware of her follow-up in one month with Maureen. Arceo made aware that she will receive a call on Tuesday as to how the weekend went. Pt has no furtherquestions. JNelsonRN FACTURING TECH documented in this encounter Plan of Treatment Upcoming Encounters Date Type Specialty Care Team Description 04/28/2022 Office Visit Family Practice Anhtony Doe PA-C [address] [place], [place] [phone] (Wo rk) 05/03/2022 Office Visit Dermatology Neil Kent M D [address] [place], [place] [phone] (Wo rk) 05/05/2022 Office Visit Optometry Yeny David, OD [address] [facility] [place] [phone] (Wo rk) 05/11/2022 Virtual Visit Pharm D Diana Desir , [facility] [address] [place], [place] [phone] (Wo rk) 05/14/2022 Office Visit Cardiology Livan Sharif MD [address] [place] [address] (Wo rk) 05/31/2022 Office Visit Family Practice Valery Veronica PA-C [address] [place], [place] [phone] (Wo rk) Scheduled Referrals Name Type Priority Associated Diagnoses Order S chedule Follow-Up with Referral Routine: Next SVT (supraventricular Exp ected: Cardiology- EP available opening tachycardia) (H) 09/08 (Approximate), Expires: 2021 documented as of this encounter Visit Diagnoses Diagnosis SVT (supraventricular tachycardia) (H) - Primary Other specified cardiac dysrhythmias documented in this encounter Additional Health Concerns Assessment Noted Time PHQ-9 Depression Total Score: 2 04/02/2021 10:19 AM CD T documented as of this encounter Care Teams Surgical Garment Fitter Relationship Specialty Start Date End Date Marija Edgar APRN PCP - General Nurse Practitioner 04/30/20 LINE TENDER FLAKEBOARD [address] [place], [place] [phone] Lita Oseguera Personal Advocate & 02/28/20 Liaison (PAL) Marija Edgar APRN Assigned PCP 06/08/20 LINE TENDER FLAKEBOARD [address] [place], [place] [phone] Mynor Broussard MD Assigned Surgical 06/01/20 11/28/21 [address] Provider [address] [place] [address] Trevor-Keisha Peter, Assigned Neuroscience 06/04/20 MD Provider [address] [place], [place] [address] Galo Burrell MD Assigned Heart and 10/05/20 04/02/[address] [facility] [address] Vascular Provider [place] [id number] Diana Desir, [facility] Pharmacist Pharmacist 04/17/[address] [place] [address] Rain Galaviz Physician Certified Physical Therapist Assistant Dermatology 04/28/21 ROVERTO Paredes [address] [facility] [address] [place], [place] [phone] Summer Lara MD Assigned OBGYN Provider 05/31/21 03/12/[address] [place], [place] [address] Tavia Wyatt MD MD Dermatology 07/14/21 documented as of this encounter
--- OUTSIDE RECORDS SUMMARY | 2022-04-28 01:11 | XMS_ITS | Encounter Summary ---
:2000 Author Organization [facility] Address [address] [place] [address] Care Team Providers Name Role Phone Lita Oseguera Unavailable Unavailable Marija Edgar APRN [employer] Primary Care Provider [phone] Marija Edgar APRN [employer] Unavailable Mynor Broussard MD Unavailable Keisha Dotson MD Unavailable Galo Burrell MD Unavailable Diana Desir [facility] Unavailable Rain Galaviz PA-C Unavailable Summer Lara MD Unavailable Tavia Wyatt MD Unavailable Unavailable Reason for Visit Reason Comments Chest Pain Encounter Details Date Type Department Care Team Description 07/31/2021 Emergency [facility] Aleyda Jiang, His tory of supraventricular tachycardia; [facility] Emergency PA-C Nonspecific chest pain; Dept EMERGENCY PHYS.PA Palpitations [address] [place] [address] [address] [place] [address] (Wo rk) Social History Tobacco Use Types [...] How often do you attend mosque or alevism services? Never 09/22/2021 Do you [...] place to sleep or slept in a longterm (including now)? Education Answer Date Recorded What is the highest level of school you have completed or 12 th grade 08/07/2020 the highest degree you have received? Sex Assigned at Date Recorded Female 03/02/2021 5:45 PM CDT COVID-19 Exposure Response Date Recorded In the last month, have you been in contact with No / Unsure 07/31/2021 2:57 PM NETWORK MGR someone who was confirmed or suspected to have Coronavirus / COVID-19? documented as of this encounter Last Filed Vital Signs Vital Sign Reading Time Taken Comments Blood Pressure 115/75 07/31/2021 4:10 PM NETWORK MGR Pulse 87 07/31/2021 4:10 PM NETWORK MGR Temperature 37.1 ??C (98.7 ??F) 07/31/2021 3:00 PM NETWORK MGR Respiratory Rate 16 07/31/2021 4:23 PM NETWORK MGR Oxygen Saturation 98% 07/31/2021 4:10 PM NETWORK MGR Inhaled Oxygen Concentration - - Weight 86.2 kg (190 lb) 07/31/2021 3:01 PM NETWORK MGR Height 167.6 cm (5' 6) 07/31/2021 3:01 PM NETWORK MGR Body Mass Index 30.67 07/31/2021 3:01 PM NETWORK MGR documented in this encounter Discharge Instructions Discharge InstructionsAleyda Jiang PA-C - 07/31/2021 4:19 PM NETWORK MGR Follow-up with your building code inspector in 1 to 2 days for reassessment. Return to the emergency departmentif you develop persistent chest pain, dizziness, confusion, weakness, shortness of breath, or any other medical concerns ORK MGR documented in this encounter Medications at Time of Discharge Medication Sig Dispensed Refills Start Date End Date Vit-Fe Take 1 tablet by 90 tablet 3 06/04/2020 Fumarate-FA ( mouth daily MULTIVITAMIN W/IRON) 27-0.8 MG tablet betamethasone Apply topically 2 45 g 1 06/26/2021 02/0 07/2021 dipropionate (DIPROSONE) times daily 0.05 % external creamIndications: Psoriasis levETIRAcetam (KEPPRA) Take 1 tablet (500 [...] documented as of this encounter ED Notes Vikas Torres, RN - 07/31/2021 3:00 PM CST Here for chest pain started about 30 minutes ago associated with sob and numbness. Stated her pulse oximetry shows heart rate of 195. Stated history of SVT with ablation schedule for 08/28. ABCs intact. ORK MGR Aleyda Jiang PA-C - 07/31/2021 2:56 PM CST History Chief Complaint: Chest Pain HPI Kim Johnson is a 21 year old female with history of SVT who presents who presents to the emergency department for evaluation of nonspecific chest pain and palpitations. The patient states that she has a longstanding history of SVT and that she has a scheduled ablation for . She presents to the emergency department today stating that she has had intermittent episodes of palpitations over the last several hours. The patient reports that her child's father has been causing her increased stress which she suspects is causing her presenting symptoms. At the time of the exam, the patient notes that she feels better being in the emergency department. She denied headache, confusion, weakness, lower extremity swelling or pain, fever, cough, sore throat, shortness of breath, or any other medical concerns. Review of Systems Respiratory: Negative for shortness of breath. Cardiovascular: Positive for chest pain and palpitations. Negative for leg swelling. Gastrointestinal: Negative for abdominal pain, nausea and vomiting. All other systems reviewed and are negative. Allergies: No Known Allergies Medications: betamethasone dipropionate (DIPROSONE) 0.05 % external cream levETIRAcetam (KEPPRA) 500 MG tablet omeprazole (PRILOSEC) [address] capsule Vit-Fe Fumarate-FA ( MULTIVITAMIN W/IRON) 27-0.8 MG tablet sertraline (ZOLOFT) 100 MG tablet Past Medical History: Past Medical History: Diagnosis Date ??? Anxiety ??? Chronic kidney disease ??? Depressive disorder ??? Gastroesophageal reflux disease ??? Psoriasis ??? Seizure (H) 05/02/2019 ??? SVT (supraventricular tachycardia) (H) Patient Active Problem List Diagnosis Date Noted ??? Encounter for pharmacogenetic testing 04/17/2021 Priority: Medium ??? 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 CYP2C9 intermediate metabolizer (H) 04/17/2021 Priority: Medium ??? Moderate major depression (H) 03/03/2021 Priority: Medium ??? Term 01/13/2021 Priority: Medium ??? Encounter for triage in patient 12/09/2020 Priority: Medium ??? KALYN (generalized anxiety disorder) 09/29/2020 Priority: Medium ??? Asthma 06/04/2020 Priority: Medium ??? Right ureteral stone 05/27/2020 Priority: Medium Added automatically from request for surgery [id number] ??? Left ureteral stone 05/27/2020 Priority: Medium Added automatically from request for surgery [id number] ??? Head ache 02/18/2020 Priority: Medium ??? Seizure (H) 05/02/2019 Priority: Medium ??? Depressed 05/02/2019 Priority: Medium ??? Anxiety 05/02/2019 Priority: Medium ??? Tobacco abuse counseling 05/02/2019 Priority: Medium ??? Psoriasis 05/02/2019 Priority: Medium Past Surgical History: Past Surgical History: Procedure Laterality Date ??? ESOPHAGOSCOPY, GASTROSCOPY, DUODENOSCOPY (EGD), COMBINED N/A 06/26/2021 Procedure: ESOPHAGOGASTRODUODENOSCOPY (EGD) (fv); Surgeon: Rey Sheppard MD; Location: [facility] ??? GENITOURINARY SURGERY kidney Family History: Family History Problem Relation Age of Onset ??? Heart Disease Maternal Grandfather ??? Brain Tumor Sister Social History: Present to the ED alone. Single. Physical Exam Patient Vitals for the past 24 hrs: BP Temp Temp src Pulse Resp SpO2 Height Weight 07/31/21 1623 -- -- -- -- 16 -- -- -- 07/31/21 1610 115/75 -- -- 87 16 98 % -- -- 07/31/21 1501 -- -- -- -- -- -- 1.676 m (5' 6) 86.2 kg (190 lb) 07/31/21 1500 (!) 125/91 98.7 ??F (37.1 ??C) Temporal 109 18 99 % -- -- Physical Exam Vitals signs and nursing note reviewed. HENT: Nose: Nose normal. No congestion or rhinorrhea. Mouth/Throat: Mouth: Mucous membranes are moist. Pharynx: Oropharynx is clear. No oropharyngeal exudate or posterior oropharyngeal erythema. Eyes: General: No scleral icterus. Extraocular Movements: Extraocular movements intact. Conjunctiva/sclera: Conjunctivae normal. Pupils: Pupils are equal, round, and reactive to light. Cardiovascular: Rate and Rhythm: Regular rhythm. Normal Rate. Pulses: Normal pulses. Heart sounds: Normal heart sounds. Pulmonary: Effort: Pulmonary effort is normal. Breath sounds: Normal breath sounds. Abdominal: General: Abdomen is flat. Bowel sounds are normal. Palpations: Abdomen is soft. Tenderness: There is no abdominal tenderness. Musculoskeletal: Normal range of motion. Right lower leg: No edema. Left lower leg: No edema. Skin: General: Skin is warm and dry. Neurological: Mental Status: Alert. Speech normal. Responds appropriately to questions. Psychiatric: Mood and Affect: Mood normal. Behavior: Behavior normal. Emergency Department Course ECG: ECG taken at 15:11, ECG read at 1511 Sinus tachycardia otherwise normal EKG Rate 118 bpm. HI interval 144 ms. QRS duration 82 ms. QT/QTc 314/440 ms. P-R-T axes 61 71 28. Imaging: No orders to display Laboratory: Labs Ordered and Resulted from Time of ED Arrival to Time of ED Departure CBC WITH PLATELETS AND DIFFERENTIAL - Abnormal Result Value WBC Count 5.7 RBC Count 5.28 (*) Hemoglobin 12.9 Hematocrit 42.4 MCV 80 MCH 24.4 (*) MCHC 30.4 (*) RDW 13.3 Platelet Count 260 % Neutrophils 60 % Lymphocytes 28 % Monocytes 7 % Eosinophils 5 % Basophils 0 % Immature Granulocytes 0 NRBCs per 100 WBC 0 Absolute Neutrophils 3.4 Absolute Lymphocytes 1.6 Absolute Monocytes 0.4 Absolute Eosinophils 0.3 Absolute Basophils 0.0 Absolute Immature Granulocytes 0.0 Absolute NRBCs 0.0 BASIC METABOLIC PANEL - Normal Sodium 139 Potassium 3.8 Chloride 108 Carbon Dioxide (CO2) 24 Anion Gap 7 Urea Nitrogen 7 Creatinine 0.69 Calcium 9.0 Glucose 88 GFR Estimate >90 TROPONIN I - Normal Troponin I High Sensitivity <3 HCG QUALITATIVE - Normal hCG Serum Qualitative Negative Emergency Department Course: Reviewed: I reviewed nursing notes, vitals and past history Assessments: I obtained history and examined the patient as noted above. I rechecked the patient and discussed the results of her laboratory studies. She states that she felt significantly better than when she presented and requests discharge home. Interventions: Medications - No data to display Disposition: The patient was discharged to home. Impression & Plan Medical Decision Making: Kim Johnson is a 21-year-old female with history of SVT who presents to the emergency department for evaluation of nonspecific chest pain, palpitations, and anxiety. See HPI for additional details. Upon arrival to the emergency department, the patient appears well. Initial vitals revealed tachycardia otherwise normal. On physical exam, she was nontoxic appearing. She is alert and had no focal neurological deficits noted. Cardiopulmonary exam unremarkable. She had completely benign abdominal exam without rebound, guarding, distention, or marked tenderness to palpation. No diffuse lower extremity edema. Remaining exam unremarkable. EKG was obtained and demonstrated sinus tachycardia otherwise normal. There was no evidence of acute ischemic changes, Parkinson White syndrome, Brugada, prolonged QTC,or other arrhythmias. A broad differential was of course considered for the patient including but not limited to ACS, PE, pneumonia, pneumothorax, aortic dissection, esophageal rupture, referred pain fr om an intra-abdominal process, and anxiety. As noted above, the patient states that her symptoms today began after a difficult conversation with her child's father. She states that she immediately feltanxious and then symptoms began suddenly. At the time of my assessment, the patient states that she feels significantly better and believes that her symptoms were secondary to anxiety in the setting ofstress. In presenting symptoms, labs were obtained and reviewed. CBC demonstrated no evidence of leukocytosis. Hemoglobin stable at 12.9. BMP unremarkable. Troponin negative. hCG negative. Patient is PERC negative for my suspicion for a pulmonary embolism is exceedingly low in the absence of hemoptysis, hypoxia, tachycardia, and full resolution in presenting symptoms. No indication for advanced imaging at this time. I suspect that her symptoms today are secondary to anxiety in the setting of a stressful situation. There are no clinical signs or symptoms to suggest an acute cardiopulmonary process or other worrisome pathology. The patient was ultimately discharged home in stable condition with recommendations to follow-up with her primary care provider/building code inspector in 1 to 2 days for reassessment.Strict return precautions were discussed. Of note, the patient is scheduled for a cardiac ablation on 08-28-2021. All questions and concerns were addressed prior to discharge. Diagnosis: ICD-10-CM 1. History of supraventricular tachycardia Z86.79 2. Nonspecific chest pain R07.9 3. Palpitations R00.2 Discharge Medications: Discharge Medication List as of 07/31/2021 4:20 PM Aleyda Jiang PA-C 07/31/21 1627 ORK MGR documented in this encounter Plan of Treatment Upcoming Encounters Date Type Specialty Care Team Description 04/28/2022 Office Visit [facility] Anthony Doe PA-C [address] [place], [place] [phone] (Wo rk) 05/03/2022 Office Visit Dermatology Neil Kent M D [address] [place], [place] [phone] (Wo rk) 05/05/2022 Office Visit Optometry Yeny David, OD [address] [place], [place] [phone] (Wo rk) 05/11/2022 Virtual Visit Pharm D Diana Desir , [facility] [address] [place], [place] [address] (Wo rk) 05/14/2022 Office Visit Cardiology Livan Sharif MD [address] [facility] [address] [place], [place] [address] (Wo rk) 05/31/2022 Office Visit [facility] Valery Veronica PA-C [address] [place], [place] [phone] (Wo rk) documented as of this encounter Procedures Procedure Name Priority Date/Time Associated Comments Diagnosis CBC WITH PLATELETS STAT 07/31/2021 3:29 PM Res ults for this AND DIFFERENTIAL NETWORK MGR procedure a re in the results section. CBC WITH PLATELETS & STAT 07/31/2021 3:29 PM R esults for this DIFFERENTIAL NETWORK MGR procedure are i n the results section. TROPONIN I STAT 07/31/2021 3:29 PM Results f or this NETWORK MGR procedure are i n the results section. HCG QUALITATIVE STAT 07/31/2021 3:29 PM Result s for this NETWORK MGR procedure are i n the results section. BASIC METABOLIC PANEL STAT 07/31/2021 3:29 PM Results for this NETWORK MGR procedure are i n the results section. EKG 12-LEAD, TRACING STAT 07/31/2021 3:11 PM R esults for this ONLY NETWORK MGR procedure are i n the results section. documented in this encounter Results (ABNORMAL) CBC with platelets and differential (07/31/2021 3:29 PM NETWORK MGR) [facility] Method Time Signature WBC Count 5.7 4.0 - 07/31/2021 [facility] 11.0 3:49 PM NETWORK MGR 10e3/uL RBC Count 5.28 (H) 3.80 - 07/31/2021 [facility] 5.20 3:49 PM NETWORK MGR 10e6/uL Hemoglobin 12.9 11.7 - 07/31/2021 [facility] 15.7 g/dL 3:49 PM NETWORK MGR Hematocrit 42.4 35.0 - 07/31/2021 [facility] 47.0 % 3:49 PM NETWORK MGR MCV 80 78 - 100 07/31/2021 [facility] fL 3:49 PM NETWORK MGR MCH 24.4 (L) 26.5 - 07/31/2021 [facility] 33.0 pg 3:49 PM NETWORK MGR MCHC 30.4 (L) 31.5 - 07/31/2021 [facility] 36.5 g/dL 3:49 PM NETWORK MGR RDW 13.3 10.0 - 07/31/2021 [facility] 15.0 % 3:49 PM NETWORK MGR Platelet Count 260 150 - 450 07/31/2021 [facility] 10e3/uL 3:49 PM NETWORK MGR % Neutrophils 60 % 07/31/2021 [facility] 3:49 PM NETWORK MGR % Lymphocytes 28 % 07/31/2021 [facility] 3:49 PM NETWORK MGR % Monocytes 7 % 07/31/2021 [facility] 3:49 PM NETWORK MGR % Eosinophils 5 % 07/31/2021 [facility] 3:49 PM NETWORK MGR % Basophils 0 % 07/31/2021 [facility] 3:49 PM NETWORK MGR % Immature 0 % 07/31/2021 [facility] Granulocytes 3:49 PM NETWORK MGR NRBCs per 100 0 <1 /100 07/31/2021 [facility] WBC 3:49 PM NETWORK MGR Absolute 3.4 1.6 - 8.3 07/31/2021 [facility] Neutrophils 10e3/uL 3:49 PM NETWORK MGR Absolute 1.6 0.8 - 5.3 07/31/2021 [facility] Lymphocytes 10e3/uL 3:49 PM NETWORK MGR Absolute 0.4 0.0 - 1.3 07/31/2021 [facility] Monocytes 10e3/uL 3:49 PM NETWORK MGR Absolute 0.3 0.0 - 0.7 07/31/2021 [facility] Eosinophils 10e3/uL 3:49 PM NETWORK MGR Absolute 0.0 0.0 - 0.2 07/31/2021 [facility] Basophils 10e3/uL 3:49 PM NETWORK MGR Absolute 0.0 <=0.4 07/31/2021 [facility] Immature 10e3/uL 3:49 PM NETWORK MGR Granulocytes Absolute NRBCs 0.0 10e3/uL 07/31/2021 [facility] 3:49 PM NETWORK MGR Specimen Anatomical Collection Method / Collection Time Recei chelsie Time (Source) Location / Volume Laterality Blood BLOOD SPECIMEN / Venipuncture / 07/31/2021 3:29 2021 3:46 Unknown Unknown PM NETWORK MGR PM NETWORK MGR Aleyda Jiang PA-C LAB - BLOOD ORDERABLES Performing Organization Address [facility]/ZIP [facility] [place] [address] Care Lab [address] Lab (1st floor, no room number) HCG QUALitative (blood) (07/31/2021 3:29 PM NETWORK MGR) [facility] Method Time Signature hCG Serum Negative Negative REINA 07/31/2021 [facility] Qualitative 4:12 PM NETWORK MGR Comment: This test is for screening purp oses. Results should be interpreted along with the clinical picture. Confirmation testing is available if warranted by ordering [id number], HCG Quantitative . Specimen Anatomical Collection Method / Collection Time Recei chelsie Time (Source) Location / Volume Laterality Blood BLOOD SPECIMEN / Venipuncture / 07/31/2021 3:29 2021 3:46 Unknown Unknown PM NETWORK MGR PM NETWORK MGR Aleyda Jiang PA-C LAB - BLOOD ORDERABLES Performing Organization Address City/[facility]/ZIP Code Phon e Number [facility] [place] [address] Care Lab [address] Lab (1st floor, no room number) Troponin I (07/31/2021 3:29 PM NETWORK MGR) athologist Signature Troponin I High <3 <54 ng/L 07/31/2021 [facility] Sensitivity 4:10 PM NETWORK MGR Comment: This Troponin-I result was obta ined using a Siemens Dimension [place] High Sensitivity Troponin-I assay (TNIH). Eff ective 06/02/21, nine labs/sites in the [facility] switched from a Siemens [place] Contemporary Troponin I assay (CTNI) to a Siemens [place] High-Sensitivity Troponi n I assay (TNIH). Specimen Anatomical Collection Method / Collection Time Recei chelsie Time (Source) Location / Volume Laterality Blood BLOOD SPECIMEN / Venipuncture / 07/31/2021 3:29 2021 3:46 Unknown Unknown PM NETWORK MGR PM NETWORK MGR Aleyda Jiang PA-C LAB - BLOOD ORDERABLES Performing Organization Address City/State/ZIP Code Phon e Number [place] [address] Care Lab [address] Lab (1st floor, no room number) Basic metabolic panel (07/31/2021 3:29 PM NETWORK MGR) athologist [facility] Sodium 139 133 - 144 07/31/2021 LABORATORY mmol/L 4:04 PM NETWORK MGR Potassium 3.8 3.4 - 5.3 07/31/2021 LABORATORY mmol/L 4:04 PM NETWORK MGR Chloride 108 94 - 109 07/31/2021 LABORATORY mmol/L 4:04 PM NETWORK MGR Carbon Dioxide 24 20 - 32 07/31/2021 LABORATORY (CO2) mmol/L 4:04 PM NETWORK MGR Anion Gap 7 3 - 14 07/31/2021 LAB[facility] mmol/L 4:04 PM NETWORK MGR Urea Nitrogen 7 7 - 30 07/31/2021 LABORATORY mg/dL 4:04 PM NETWORK MGR Creatinine 0.69 0.52 - 07/31/2021 [facility] 1.04 mg/dL 4:04 PM NETWORK MGR Calcium 9.0 8.5 - 10.1 07/31/2021 [facility] mg/dL 4:04 PM NETWORK MGR Glucose 88 70 - 99 07/31/2021 [facility] mg/dL 4:04 PM NETWORK MGR GFR Estimate >90 >60 07/31/2021 [facility] mL/min/1.7 4:04 PM NETWORK MGR 3m2 Comment: Effective June 30, 2021 eGF Rcr in adults is calculated using the 2020 CKD-EPI creatinine equation which includ es age and gender (Hermilo et al., [place], DOI: 10.1056/GYOWpk3915782) Specimen Anatomical Collection Method / Collection Time Recei chelsie Time (Source) Location / Volume Laterality Blood BLOOD SPECIMEN / Venipuncture / 07/31/2021 3:29 2021 3:46 Unknown Unknown PM NETWORK MGR PM NETWORK MGR Aleyda Jiang PA-C LAB - BLOOD ORDERABLES Performing Organization Address City/State/ZIP Code Phon e Number [place] [phone] Care Lab [address] Lab (1st floor, no room number) EKG 12-lead, tracing only (07/31/2021 3:11 PM NETWORK MGR) Component Value Ref Range Test Analysis Performed Pathologis t Method Time At Signature Systolic Blood mmHg RADIOLOGY Pressure RESULTS Diastolic Blood mmHg RADIOLOGY Pressure RESULTS Ventricular Rate 118 BPM RADIOLOGY RESULTS Atrial Rate 118 BPM RADIOLOGY RESULTS HI Interval 144 ms RADIOLOGY RESULTS QRS Duration 82 ms RADIOLOGY RESULTS QT 314 ms RADIOLOGY RESULTS QTc 440 ms RADIOLOGY RESULTS P [place] 61 degrees RADIOLOGY RESULTS R AXIS 71 degrees RADIOLOGY RESULTS T [place] 28 degrees RADIOLOGY RESULTS Interpretation Sinus tachycardia RADIOLO GY ECG Otherwise normal ECG RESULTS No previous ECGs available Confirmed by - EMERGENCY MAGDIEL Medina PHYSICIAN ([id number]), purchase request editor KEYLA MERIDA ([id number]) on 08/03/2021 6:58:45 AM Specimen Anatomical Collection Method Collection Time Receive d Time (Source) Location / / Volume Laterality 07/31/2021 3:11 PM 6:58 NETWORK MGR AM NETWORK MGR Aleyda Jiang PA-C ECG ORDERABLES Performing Organization Address City/State/ZIP Code Phon e Number RADIOLOGY RESULTS documented in this encounter Visit Diagnoses Diagnosis History of supraventricular tachycardia Personal history of other diseases of ci rculatory system Nonspecific chest pain Palpitations documented in this encounter Additional Health Concerns Infection Onset Date Last Indicated Resolved Time COVID-19 07/18/2021 07/18/2021 08/08/2021 11:39 PM NETWORK MGR Assessment Noted Time PHQ-9 Depression Total Score: 2 04/02/2021 10:19 AM CD T documented as of this encounter Care Teams Supervisor Aircraft Cleaning Relationship Specialty Start Date End Date Marija Edgar APRN PCP - General Nurse Practitioner 04/30/20 [employer] [address] [place] [address] Lita Oseguera Personal Advocate & 02/28/20 Liaison (PAL) Marija Edgar APRN Assigned PCP 06/08/20 [employer] [address] [place], [place] [phone] Mynor Broussard MD Assigned Surgical 06/01/20 11/28/21 [address] Provider [address] [place], [place] [address] Trevor-Keisha Peter, Assigned Neuroscience 06/04/20 MD Provider [address] [place], [place] [phone] Galo Burrell MD Assigned Heart and 10/05/20 04/02/22 [address] Vascular Provider [place], [place] [address] Diana Desir, [facility] Pharmacist Pharmacist 04/17/[address] [place], [place] [address] Rain Galaviz Physician [employer]acking Mixer Dermatology 04/28/21 ROVERTO Paredes [address] [facility] [address] [place] [address] Summer Lara MD Assigned OBGYN Provider 05/31/21 03/12/[address] [place] [address] Tavia Wyatt MD MD Dermatology 07/14/21 documented as of this encounter
--- OUTSIDE RECORDS SUMMARY | 2022-04-28 01:11 | XMS_ITS | Encounter Summary ---
:2000 Author Organization [facility] Address [address] [place] [address] Care Team Providers Name Role Phone Lita Oseguera Unavailable Unavailable Marija Edgar APRN LIVE GAMES DEALER Primary Care Provider [phone] Marija Edgar APRN LIVE GAMES DEALER Unavailable Mynor Broussard MD Unavailable Keisha Dotson MD Unavailable Galo Burrell MD Unavailable Diana Desir [facility] Unavailable Rain Galaviz PA-C Unavailable Summer Lara MD Unavailable Tavia Wyatt MD Unavailable Unavailable Reason for Visit Diagnostic Imaging XR (Routine) - Pending Review Specialty Diagnoses / Procedures Referred By Contact Refer red To Contact Diagnoses SOB (shortness of breath) Suspected 2019 novel coronavirus infection Mani Gentile MD Procedures XR Chest 2 Views [address] [facility] [place] [address] Referral ID Status Reason Start Date Expiration Date Visits V isits Requested Authorized [id number] Pending 07/18/2021 07/18/2022 1 1 Review Encounter Details Date Type Department Care Team Description 07/18/2021 [facility]illary [facility] [address] [facility] [address] [facility] [place] [address] [address] [place] [address] [phone] Social History Tobacco Use Types Packs/Day Years [...] week 09/22/2021 How often do you attend adventism or restorationist services? Never 09/22/2021 Do you belong to any clubs or organizations such as No 09/22/2021 adventism groups, unions, fraternal or athletic groups, or [...] month, have you been in contact with Yes 07/18/2021 1:53 PM GUT SORTER someone who was confirmed or suspected to have Coronavirus / COVID-19? documented as of this encounter Plan of Treatment Upcoming Encounters Date Type Specialty Care Team Description 04/28/2022 Office Visit [facility] Anthony Doe PAUcheC [address] [place], [place] [phone] (Wo rk) 05/03/2022 Office Visit Dermatology Neil Knet M D [address] [place], [place] [address] (Wo rk) 05/05/2022 Office Visit Optometry Yeny David, OD [address] [facility] [address] [place], [place] [phone] (Wo rk) 05/11/2022 Virtual Visit Pharm D Diana Desir , [facility] [address] [place], [place] [address] (Wo rk) 05/14/2022 Office Visit Cardiology Livan Sharif MD [address] [facility], [facility] [address] [place], [place] [address] (Wo rk) 05/31/2022 Office Visit [facility] Valery Veronica PA-C 9[address] [place], [place] [address] (Wo rk) documented as of this encounter Procedures Procedure Name Priority Date/Time Associated Diagnosis Comme nts XR CHEST 2 VIEWS Routine 07/18/2021 5:06 PM SOB (shortness of Results for this GUT SORTER breath) procedure are in Suspected 2019 novel the res ults coronavirus infection sectio n. documented in this encounter Results XR Chest 2 Views (07/18/2021 5:06 PM GUT SORTER) Anatomical Region Laterality Modality Chest Computed Radiography Specimen (Source) Anatomical Collection Method Collection Time Re ceived Time Location / / Volume Laterality 07/18/2021 4:39 PM GUT SORTER Impressions 07/18/2021 5:11 PM GUT SORTER IMPRESSION: Negative chest. Narrative 07/18/2021 5:11 PM GUT SORTER EXAM: XR CHEST 2 VW LOCATION: [facility] DATE/TIME: 07/18/2021 4:39 PM INDICATION: cough, SOB, COVID exposure/s uspect COMPARISON: 08/06/2020. Procedure Note Augustus Lozano MD - 07/18/2021Formatt ing of this note might be different from the original. EXAM: XR CHEST 2 VW LOCATION: [facility] DATE/TIME: 07/18/2021 4:39 PM INDICATION: cough, SOB, COVID exposure/s uspect COMPARISON: 08/06/2020. IMPRESSION: Negative chest. Mani Gentile MD IMG DIAGNOSTIC IMAGING ORDER GARY documented in this encounter Visit Diagnoses Not on filedocumented in this encounter Additional Health Concerns Infection Onset Date Last Indicated Resolved Time Rule Out COVID-19 07/18/2021 07/18/2021 07/20/2021 1:5 6 PM GUT SORTER Assessment Noted Time PHQ-9 Depression Total Score: 2 04/02/2021 10:19 AM CD T documented as of this encounter Care Teams Saw Filer Relationship Specialty Start Date End Date Marija Edgar APRN PCP - General Nurse Practitioner 04/30/20 LIVE GAMES DEALER [address] [place] [address] Lita Oseguera Personal Advocate & 02/28/20 Liaison (PAL) Marija Edgar APRN Assigned PCP 06/08/20 LIVE GAMES DEALER [address] [place] [address] Mynor Broussard MD Assigned Surgical 06/01/20 11/28/21 [address] DANNI Provider [address] [place], [place] [address] Keisha Dotson, Assigned Neuroscience 06/04/20 MD Provider 9[address] [place], [place] [address] Galo Burrell MD Assigned Heart and 10/05/20 04/02/22 [address] Vascular Provider [place] [address] Diana Desir, [facility] Pharmacist Pharmacist 04/17/21 [address] [place] [address] Rain Galaviz Physician Paper Cup Machine Operator Dermatology 04/28/21 ROVERTO Paredes [address] [facility] [place] [address] Summer Lara MD Assigned OBGYN Provider 05/31/21 03/12/[address] [place] [address] Tavia Wyatt MD MD Dermatology 07/14/21 documented as of this encounter
--- OUTSIDE RECORDS SUMMARY | 2022-04-28 01:11 | XMS_ITS | Encounter Summary ---
:2000 Author Organization [facility] Address [address] [place] [address]. [place] [address] Care Team Providers Name Role Phone Lita Oseguera Unavailable Unavailable Marija Edgar APRN SENIOR WAREHOUSE CLERK Primary Care Provider [phone] Marija Edgar APRN SENIOR WAREHOUSE CLERK Unavailable Mynor Broussard MD Unavailable Keisha Dotson MD Unavailable Galo Burrell MD Unavailable Diana Desir [facility] Unavailable Rain Galaviz PA-C Unavailable [phone] Summer Lara MD Unavailable Tavia Wyatt MD Unavailable Unavailable Reason for Referral (Routine) - Pending Review Specialty Diagnoses / Procedures Referred By Contact Refer red To Contact Diagnoses Paroxysmal supraventricular tachycardia (H) Erica Farrell Procedures Case Request EP: EP Ablation SVT ARLENE Guidry SENIOR WAREHOUSE CLERK [address] [place] [address] Referral ID Status Reason Start Date Expiration Date Visits V isits Requested Authorized [id number] Pending 07/15/2021 07/15/2022 1 1 Review BLENDER Encounter Details Date Type Department Care Team Description 07/15/2021 Virtual Visit [facility] Erica Farrell [facility] ARLENE Guidry supraven tricular Heart SENIOR WAREHOUSE CLERK tachycardia (H) (Primary Care-[address]) [address] [facility] [address] [place] [address] [place], [place] [phone] [address] (Work) [phone] Social History Tobacco Use Types Packs/Day Years [...] How often do you attend adventist or rastafari services? Never 09/22/2021 Do you [...] have you been in contact with Yes 07/15/2021 12:15 PM LEAF BLENDER someone who was confirmed or suspected to have Coronavirus / COVID-19? documented as of this encounter Patient Instructions Patient InstructionsStErica cavanaugh APRN CNP - 07/15/2021 12:30 PM CST If you have problems or questions please call the RNs (Joanne Vaughan & Nichole) at [phone] Plan for an SVT ablation. I will call BLENDER documented in this encounter Progress Notes Erica Farrell APRN CNP - 07/15/2021 12:30 PM CST Kim is a 21 year old who is being evaluated via a billable video visit. How would you like to obtain your AVS? Mail a copy If the video visit is dropped, the invitation should be resent by: Text to cell phone: [phone] Mikelimity Will anyone else be joining your video visit? No Review Of Systems Skin: Positive for psoriasis Eyes: Negative Ears/Nose/Throat: Negative Respiratory: Positive for dyspnea on exertion - off and on Cardiovascular: Positive for palpitations; chest pain and heaviness Gastrointestinal: Negative Genitourinary: Negative Musculoskeletal: Negative Neurologic: Positive for epilepsy; migraines; tingling in left arm/heaviness Psychiatric: Positive for stress and anxiety Hematologic/Lymphatic/Immunologic: Negative Endocrine: Negative Patient reported vitals: BP: 126/65 Heart rate: 67 Weight: 195 lbs - taken a week ago Esha Miramontes CMA Video Start Time: 12:26 PM Video-Visit Details Type of service: Video Visit Video End Time:1:56 PM Originating Location (pt. Location): Home Distant Location (provider location): [facility] Platform used for Video Visit: Blane Kim Johnson is a 21 year old female who is following up after being in ED with palpitations. Thisvisit is being conducted as a virtual visit due to the emphasis on mitigation of the COVID-19 virus pandemic. The clinician has decided that the risk of an in-office visit outweighs the benefit for this patient. She is a patient of Dr. Burrell. Her medical history includes 1. SVT 2. Anxiety 3. GERD 4. Seizure Diagnostics: ?? ECHO (08/2020) revealed The visual ejection fraction is estimated at 55%. The right ventricle is normal in structure, function and size. There is trace to mild pulmonic valvular regurgitation. Today she reports having SVT symptoms for years and was diagnosed in the past year when she was . She was on metoprolol however her BP would decrease and her HR was 35 when slept therefore was discontinued. In the past her HR would just start go fast up to 200 bpm and would self terminate. This last episode, she would get a hot flash, diaphoresis, chest pain and her heart rate would go up to 130-140's for a minute then go down to the 80's. She waited 2 hours, her heart rate felt like it wentover 200 bpm, she felt like her heart stopped for a split second with symptoms of numbness, tingling, anxiety then proceeded to the ED where she was found to be hypokalemic and in normal rhythm. She denies chest pain or pressure, dizziness, syncope, angina, dyspnea at rest or with exertion, palpitations, orthopnea, PND, or edema. Physical Exam Constitutional: Appearance: Normal appearance. Neurological: Mental Status: She is alert. Psychiatric: Mood and Affect: Mood normal. Behavior: Behavior normal. Thought Content: Thought content normal. Judgment: Judgment normal. The remainder of the physical exam was deferred due to public health crisis. Acknowledge and reviewed ROS completed by Esha Miramontes CMA ASSESSMENT AND PLAN SVT ?? Documented SVT 15 beats on zio patch and 6 beats of PSVT. ?? Another episode occurred during July 2021 ?? Does not tolerate metoprolol ?? We discussed the risks, benefits and indications of proceeding with electrophysiology study and possible ablation, including but not limited to the use of conscious sedation and need for a wheelchair van driver upon discharge, peripheral vessel injury and discomfort, heart attack, , stroke, cardiac puncture a nd/or tamponade, pneumothorax, fvpsd-[id number]-arrhythmias requiring further treatment and damage to existing electrical structures that may require permanent pacemaker implantation. We reviewed that additional procedures may be required. We briefly discussed post-procedural restrictions and post-procedural discomfort. She voiced understanding and is willing to proceed. Consent will be signed by the procedural physician. ?? 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 Plan: Proceed to an EP study and possible SVT ablation. BLENDER documented in this encounter Plan of Treatment Upcoming Encounters Date Type Specialty Care Team Description 04/28/2022 Office Visit Family [facility] Anthony Doe PA-C [address] [place], [place] [phone] (Wo rk) 05/03/2022 Office Visit Dermatology Neil Kent M D [address] [place], [place] [address] (Wo rk) 05/05/2022 Office Visit Optometry Yeny David, OD [address] [facility] [address] [place], [place] [phone] (Wo rk) 05/11/2022 Virtual Visit Pharm D Diana Desir , [facility] [address] [place], [place] [address] (Wo rk) 05/14/2022 Office Visit Cardiology Livan Sharif MD [address], [facility] [address] [place], [place] [address] (Wo rk) 05/31/2022 Office Visit Family [facility] Valery Veronica PA-C [address] [place], [place] [phone] (Wo rk) documented as of this encounter Visit Diagnoses Diagnosis Paroxysmal supraventricular tachycardia (H) - Primary Paroxysmal supraventricular tachycardia documented in this encounter Additional Health Concerns Assessment Noted Time PHQ-9 Depression Total Score: 2 04/02/2021 10:19 AM CD T documented as of this encounter Care Teams Title Investigator Relationship Specialty Start Date End Date Marija Edgar APRN PCP - General Nurse Practitioner 04/30/20 SENIOR WAREHOUSE CLERK [address] [place], [place] [phone] Lita Oseguera Personal Advocate & 02/28/20 Liaison (PAL) Marija Edgar APRN Assigned PCP 06/08/20 SENIOR WAREHOUSE CLERK [address] [place], [place] [phone] Mynor Broussard MD Assigned Surgical 06/01/20 11/28/[address] D[address] Provider [address] [place], [place] [address] Keisha Dotson, Assigned Neuroscience 06/04/20 MD Provider 9[address] [place], [place] [address] Galo Burrell MD Assigned Heart and 10/05/20 04/02/[address] Vascular Provider [place], [place] [address] Diana Desir, [facility] Pharmacist Pharmacist 04/17/[address] [place] [address] Rain Galaviz Physician Contract Manager Dermatology 04/28/21 ROVERTO Paredes [address] [facility] [address] [place] [address] Summer Lara MD Assigned OBGYN Provider 05/31/21 03/12/[address] [place] [address] Tavia Wyatt MD MD Dermatology 07/14/21 documented as of this encounter
--- OUTSIDE RECORDS SUMMARY | 2022-04-28 01:11 | XMS_ITS | Encounter Summary ---
:2000 Author Organization [facility] Address [address] [place] [address] Care Team Providers Name Role Phone Lita Oseguera Unavailable Unavailable Marija Edgar APRN EMPLOYMENT PROGRAM REPRESENTATIVE Primary Care Provider [phone] Marija Edgar APRN EMPLOYMENT PROGRAM REPRESENTATIVE Unavailable Mynor Broussard MD Unavailable Keisha Dotson MD Unavailable Galo Burrell MD Unavailable Diana Desir [facility] Unavailable Rain Galaviz PA-C Unavailable [phone] Summer Lara MD Unavailable Tavia Wyatt MD Unavailable Unavailable Encounter Details Date Type Department Care Team Description 07/31/2021 Travel Social History Tobacco Use Types Packs/Day [...] How often do you attend judaism or congregational services? Never 09/22/2021 Do you [...] with No / Unsure 07/31/2021 2:57 PM DEGREASER OPERATOR someone who was confirmed or suspected to have Coronavirus / COVID-19? documented as of this encounter Plan of Treatment Upcoming Encounters Date Type Specialty Care Team Description 04/28/2022 Office Visit Family Practice Anthony Doe, ROVERTO [address] [place], [place] [phone] (Wo rk) 05/03/2022 Office Visit Dermatology Neil Kent M D [address] [place], [place] [address] (Wo rk) 05/05/2022 Office Visit Optometry Yeny David, OD [address] [facility] [address] [place] [id number] ([place] carlson) 05/11/2022 Virtual Visit Pharm D Diana Desir , [facility] [address] [place], [place] [address] (Wo rk) 05/14/2022 Office Visit Cardiology Livan Sharif MD [address] [place] [address] (Wo rk) 05/31/2022 Office Visit Family Practice Valery Veronica , PA-C [address] [place], [place] [address] (Wo rk) documented as of this encounter Visit Diagnoses Not on filedocumented in this encounter Additional Health Concerns Infection Onset Date Last Indicated Resolved Time COVID-19 07/18/2021 07/18/2021 08/08/2021 11:39 PM DEGREASER OPERATOR Assessment Noted Time PHQ-9 Depression Total Score: 2 04/02/2021 10:19 AM CD T documented as of this encounter Care Teams Ring Conductor Relationship Specialty Start Date End Date Marija Edgar APRN PCP - General Nurse Practitioner 04/30/20 EMPLOYMENT PROGRAM REPRESENTATIVE [address] [place], [place] [phone] Lita Oseguera Personal Advocate & 02/28/20 Liaison (PAL) Marija Edgar APRN Assigned PCP 06/08/20 EMPLOYMENT PROGRAM REPRESENTATIVE [address] [place] [address] Mynor Broussard MD Assigned Surgical 06/01/20 11/28/21 [address] Provider [address] [place] [address] Keisha Dotson, Assigned Neuroscience 06/04/20 MD Provider 9 [place], [place] [address] Galo Burrell MD Assigned Heart and 10/05/20 04/02/22 [address] [facility] [address] Vascular Provider [place], [place] [address] Diana Desir, [facility] Pharmacist Pharmacist 04/17/21 [address] [place] [address] Rain Galaviz Physician Sewage Treatment Plant Operator Dermatology 04/28/21 ROVERTO Paredes [address] [facility] [address] [place] [place], [place] [phone] Summer Lara MD Assigned OBGYN Provider 05/31/21 03/12/[address] [place], [place] [address] Tavia Wyatt MD MD Dermatology 07/14/21 documented as of this encounter
--- OUTSIDE RECORDS SUMMARY | 2022-04-28 01:11 | XMS_ITS | Encounter Summary ---
:2000 Author Organization [facility] Address [address] [place] [address] Care Team Providers Name Role Phone Lita Oseguera Unavailable Unavailable Marija Edgar APRN HEAVY EQUIPMENT SERVICE MANAGER Primary Care Provider [phone] Marija Edgar APRN HEAVY EQUIPMENT SERVICE MANAGER Unavailable Mynor Broussard MD Unavailable Keisha Dotson MD Unavailable Galo Burrell MD Unavailable Diana Desir [facility] Unavailable Rain Galaviz PA-C Unavailable [phone] Summer Lara MD Unavailable Tavia Wyatt MD Unavailable Unavailable Reason for Visit Reason Onset Date Comments request for records 07/15/2021 Encounter Details Date Type Department Care Team Description 07/15/2021 Telephone [facility] Heart Margaret Rendon, request for records Clinic Dee RN [address] [facility] [address] [place] [address] Social History Tobacco Use Types Packs/Day [...] week 09/22/2021 How often do you attend restorationism or mandaen services? Never 09/22/2021 Do you belong to any clubs or organizations such as No 09/22/2021 restorationism groups, unions, fraternal or athletic groups, or [...] you been in contact Unable to assess 07/14/2021 2:29 PM RETAIL SERVICE SPECIALIST with someone who was confirmed or suspected to have Coronavirus / COVID-19? documented as of this encounter Miscellaneous Notes Telephone Encounter - Margaret Rendon RN - 07/15/2021 7:26 AM CST Message left for medical records requesting records from ED visit on 07/09. Patient has virtual visit scheduled today with PAULA Mondragon at 12:30pm. Left a detailed message indicating this was time sensitive and records needed so treatment plan can be discussed. Asked for call back. VJ Kennedy IL SERVICE SPECIALIST documented in this encounter Plan of Treatment Upcoming Encounters Date Type Specialty Care Team Description 04/28/2022 Office Visit Family Practice Anthony Doe, PA-C [address] [place], [place] [phone] (Wo rk) 05/03/2022 Office Visit Dermatology Neil Kent M D [address] [place], [place] [address] (Wo rk) 05/05/2022 Office Visit Optometry Yeny David, OD [address] [facility] [address] [place] [phone] (Wo rk) 05/11/2022 Virtual Visit Pharm D Diana Desir , [facility] [address] [place], [place] [address] (Wo rk) 05/14/2022 Office Visit Cardiology Livan Sharif MD [address], [facility] [address] [place], [place] [address] (Wo rk) 05/31/2022 Office Visit Family Practice Valery Veronica PA-C 909 [place] [address] (Wo rk) documented as of this encounter Visit Diagnoses Not on filedocumented in this encounter Additional Health Concerns Assessment Noted Time PHQ-9 Depression Total Score: 2 04/02/2021 10:19 AM CD T documented as of this encounter Care Teams Respiratory Director Relationship Specialty Start Date End Date Marija Edgar APRN PCP - General Nurse Practitioner 04/30/20 HEAVY EQUIPMENT SERVICE MANAGER [address] [place] [address] Lita Oseguera Personal Advocate & 02/28/20 Liaison (PAL) Marija Edgar APRN Assigned PCP 06/08/20 HEAVY EQUIPMENT SERVICE MANAGER [address] [place] [address] Mynor Broussard MD Assigned Surgical 06/01/20 11/28/21 [address] Provider [address] [place] [address] Keisha Dotson, Assigned Neuroscience 06/04/20 MD Provider 909 [place] [address] Galo Burrell MD Assigned Heart and 10/05/20 04/02/22 [address] [place] [address] Diana Desir, [facility] Pharmacist Pharmacist 04/17/[address] [place] [address] Rain Galaviz Physician Relay Associate Dermatology 04/28/21 ROVERTO Paredes [address] [facility] [address] [place] [id number] Summer Lara MD Assigned OBGYN Provider 05/31/21 03/12/[address] [place], [place] [address] Tavia Wyatt MD MD Dermatology 07/14/21 documented as of this encounter
--- OUTSIDE RECORDS SUMMARY | 2022-04-28 01:11 | XMS_ITS | Encounter Summary ---
:2000 Author Organization [facility] Address [address] [place] [address]. [place] [address] Care Team Providers Name Role Phone Lita Oseguera Unavailable Unavailable Marija Edgar APRN PHOTOGRAPHY COORDINATOR Primary Care Provider [phone] Marija Edgar APRN PHOTOGRAPHY COORDINATOR Unavailable Mynor Broussard MD Unavailable Keisha Dotson MD Unavailable Galo Burrell MD Unavailable Diana Desir [facility] Unavailable Rain Galaviz PA-C Unavailable [phone] Summer Lara MD Unavailable Tavia Wyatt MD Unavailable Unavailable Encounter Details Date Type Department Care Team Description 07/15/2021 Telephone [facility] Erica Farrell, [facility] [place] COUNSELOR/ART THERAPIST PHOTOGRAPHY COORDINATOR [address] [facility] [address] [place] [address] [place] [address] [phone] Social History Tobacco Use Types Packs/Day Years [...] week 09/22/2021 How often do you attend pentecostalism or denominational services? Never 09/22/2021 Do you belong to any clubs or organizations such as No 09/22/2021 pentecostalism groups, unions, fraternal or athletic groups, or [...] in contact with Yes 07/15/2021 12:15 PM VEHICLE LEASING AND RENTAL MANAGER someone who was confirmed or suspected to have Coronavirus / COVID-19? documented as of this encounter Miscellaneous Notes Telephone Encounter - Erica Farrell APRN CNP - 07/15/2021 1:[address] Burrell, Please advise on ablation Kim Johnson is a 21 year old female who has hx of addiction and episodes of SVT. She was when you first met her therefore an ablation was not completed. She did not tolerate metoprolol due to hypotension and bradycardia. Recently, she had recurrent SVT, proceeded to an outside hospital butthe SVT had terminated prior to hospitalization. Today I spoke with her on the phone and she would like proceed with an EP study and ablation Plan: EP study and SVT ablation Thank you, Erica Farrell APRN PHOTOGRAPHY COORDINATOR on 07/15/2021 at 1:10 PM CLE LEASING AND RENTAL MANAGER documented in this encounter Plan of Treatment Upcoming Encounters Date Type Specialty Care Team Description 04/28/2022 Office Visit Family Practice Anthony Doe, PAUcheC [address] [place] [address] (Wo rk) 05/03/2022 Office Visit Dermatology Neil Kent M D [address] [place] [address] (Wo rk) 05/05/2022 Office Visit Optometry Yeny David, OD [address] [place], [place] [id number] (Wo rk) 05/11/2022 Virtual Visit Pharm D Diana Desir , [facility] [address] [place], [place] [address] (Wo rk) 05/14/2022 Office Visit Cardiology Livan Sharif MD [address] , [facility] [address] [place], [place] [phone] (Wo rk) 05/31/2022 Office Visit Family Practice Valery Veronica PAUcheC [address] [place], [place] [address] (Wo rk) documented as of this encounter Visit Diagnoses Not on filedocumented in this encounter Additional Health Concerns Assessment Noted Time PHQ-9 Depression Total Score: 2 04/02/2021 10:19 AM CD T documented as of this encounter Care Teams Coordinator Of Evaluation Relationship Specialty Start Date End Date Marija Edgar APRN PCP - General Nurse Practitioner 04/30/20 PHOTOGRAPHY COORDINATOR [address] [place], [place] [phone] Lita Oseguera Personal Advocate & 02/28/20 Liaison (PAL) Marija Edgar APRN Assigned PCP 06/08/20 PHOTOGRAPHY COORDINATOR [address] [place], [place] [phone] Mynor Broussard MD Assigned Surgical 06/01/20 11/28/[address] [place] Provider [address] [place], [place] [address] Keisha Dotson, Assigned Neuroscience 06/04/20 MD Provider [address] [place], [place] [address] Galo Burrell MD Assigned Heart and 10/05/20 04/02/[address] Vascular Provider [place], [place] [phone] Diana Desir, [facility] Pharmacist Pharmacist 04/17/[address] [place] [address] Rain Galaviz Physician Window Machine Operator Dermatology 04/28/21 [place] Paredes [address] [place] [address] Summer Lara MD Assigned OBGYN Provider 05/31/21 03/12/[address] [place] [address] Tavia Wyatt MD MD Dermatology 07/14/21 documented as of this encounter
--- OUTSIDE RECORDS SUMMARY | 2022-04-28 01:11 | XMS_ITS | Encounter Summary ---
:2000 Author Organization [facility] Address [address] [place] [address] Care Team Providers Name Role Phone Lita Oseguera Unavailable Unavailable Marija Edgar APRN MACHINE PAN GREASER Primary Care Provider [phone] Marija Edgar APRN MACHINE PAN GREASER Unavailable Mynor Broussard MD Unavailable Keisha Dotson MD Unavailable Galo Burrell MD Unavailable Diana Desir [facility] Unavailable Rain Galaviz PA-C Unavailable [phone] Summer Lara MD Unavailable Tavia Wyatt MD Unavailable Unavailable Encounter Details Date Type Department Care Team Description 07/14/2021 Travel Social History Tobacco Use Types Packs/Day [...] week 09/22/2021 How often do you attend mandaen or synagogue services? Never 09/22/2021 Do you belong to any clubs or organizations such as No 09/22/2021 mandaen groups, unions, fraternal or athletic groups, or [...] contact Unable to assess 07/14/2021 2:29 PM ZOO KEEPER with someone who was confirmed or suspected to have Coronavirus / COVID-19? documented as of this encounter Plan of Treatment Upcoming Encounters Date Type Specialty Care Team Description 04/28/2022 Office Visit Family Practice Anthony Doe, [place] [address] [place], [place] [phone] (Wo rk) 05/03/2022 Office Visit Dermatology Neil Kent M D [address] [place], [place] [address] (Wo rk) 05/05/2022 Office Visit Optometry Yeny David, OD [address] [place] [phone] (Jefferson carlson) 05/11/2022 Virtual Visit Pharm D Diana Desir , [facility] [address] [place] [address] (Wo rk) 05/14/2022 Office Visit Cardiology Livan Sharif MD [address], [place] [place] [address] (Wo rk) 05/31/2022 Office Visit Family Practice Valery Veronica , PA-C [address] [place], [place] [address] (Wo rk) documented as of this encounter Visit Diagnoses Not on filedocumented in this encounter Additional Health Concerns Infection Onset Date Last Indicated Resolved Time Rule Out COVID-19 07/13/2021 07/13/2021 07/14/2021 3:0 4 PM ZOO KEEPER Assessment Noted Time PHQ-9 Depression Total Score: 2 04/02/2021 10:19 AM CD T documented as of this encounter Care Teams Scarfer Relationship Specialty Start Date End Date Marija Edgar APRN PCP - General Nurse Practitioner 04/30/20 MACHINE PAN GREASER [address] [place], [place] [phone] Lita Oseguera Personal Advocate & 02/28/20 Liaison (PAL) Marija Edgar APRN Assigned PCP 06/08/20 MACHINE PAN GREASER [address] [place], [place] [phone] Mynor Broussard MD Assigned Surgical 06/01/20 11/28/21 [address] [place] Provider [address] [place] [address] Keisha Dotson, Assigned Neuroscience 06/04/20 MD Provider [address] [place], [place] [address] Galo Burrell MD Assigned Heart and 10/05/20 04/02/22 [address] [facility] [address] [address] Vascular Provider [place] [address] Diana Desir, [facility] Pharmacist Pharmacist 04/17/21 [address] [place] [address] Rain Galaviz Physician Gas Line Installer Supervisor Dermatology 04/28/21 [place] Paredes [address] [place] [id number] Summer Lara MD Assigned OBGYN Provider 05/31/21 03/12/[address] [place], [place] [address] Tavia Wyatt MD MD Dermatology 07/14/21 documented as of this encounter
--- OUTSIDE RECORDS SUMMARY | 2022-04-28 01:11 | XMS_ITS | Encounter Summary ---
:2000 Author Organization [facility] Address [address] [place] [address] Care Team Providers Name Role Phone Lita Oseguera Unavailable Unavailable Marija Edgar APRN PHARMACY INFORMATICS SPECIALIST Primary Care Provider [phone] Marija Edgar APRN PHARMACY INFORMATICS SPECIALIST Unavailable Mynor Broussard MD Unavailable Keisha Dotson MD Unavailable Galo Burrell MD Unavailable Diana Desir [facility] Unavailable Rain Galaviz PA-C Unavailable Summer Lara MD Unavailable Tavia Wyatt MD Unavailable Unavailable Reason for Referral Diagnostic Imaging XR (Routine) - Pending Review Specialty Diagnoses / Procedures Referred By Contact Refer red To Contact Diagnoses SOB (shortness of breath) Suspected 2019 novel coronavirus infection Mani Gentile MD Procedures XR Chest 2 Views [address] [place] [address] Referral ID Status Reason Start Date Expiration Date Visits V isits Requested Authorized [id number] Pending 07/18/2021 07/18/2022 1 1 Review UCT REPRESENTATIVE Reason for Visit Reason Comments FEVER/BODYACHES PER PT HAS SORE THROAT BODY PAIN SOB FEVER PT STATED SHE WAS TESTED NEGATIVE FOR COVID PT STATED SHE DO NOT REMEBER WHEN SHE WAS TESTED WAS TOLD TO COME BACK IN TO GET RE-TESTED PT HAS RED EYE NOW Encounter Details Date Type Department Care Team Description 07/18/2021 Office Visit [facility] Mani Gentile M D Fever in adult (Primary Dx); [facility] [place] [address] [facility] SOB (shortness of breath); [address] [facility] Body aches; [address] [place] [address] Suspected 2019 novel coronavirus infecti on; [address] Palpitations [place] [phone] (Work) [phone] Social History Tobacco Use Types Packs/Day Years [...] How often do you attend christian or caodaism services? Never 09/22/2021 Do you [...] in contact with Yes 07/18/2021 1:53 PM PRODUCT REPRESENTATIVE someone who was confirmed or suspected to have Coronavirus / COVID-19? documented as of this encounter Last Filed Vital Signs Vital Sign Reading Time Taken Comments Blood Pressure 121/78 07/18/2021 2:07 PM PRODUCT REPRESENTATIVE Pulse 92 07/18/2021 2:07 PM PRODUCT REPRESENTATIVE Temperature 36.7 ??C (98.1 ??F) 07/18/2021 2:07 PM PRODUCT REPRESENTATIVE Respiratory Rate 16 07/18/2021 2:07 PM PRODUCT REPRESENTATIVE Oxygen Saturation 96% 07/18/2021 2:07 PM PRODUCT REPRESENTATIVE Inhaled Oxygen Concentration - - Weight - - Height - - Body Mass Index - - documented in this encounter Progress Notes Mani Gentile MD - 07/18/2021 3:00 PM CST SUBJECTIVE: Kim Johnson is a 21 year old female presenting with a chief complaint of fever, SOB, body aches, sore throat, palpitations. Close household contacts positive COVID last week. Patient developed symptoms and was seen in UC earlier this week - Influenza and COVID screen on 07/13 - negative, reviewed UC note Has continue with high fevers up to 104. Endorsed cough, congestion, bodyaches, GI symptoms. Patienthas been fatigue, has to care for her 6 month old and notes with with fever that is getting worsening SVT symptoms with any exertion. Now has pink eye on right side, denies any mattering or drainage. Had seen Cardiology, planning for ablation but now sick. Patient is worried, unsure what to do now. Unable to tolerate metoprolol, heart rate will drop down into 30's. Unable to obtained COVID vaccination, was trying to get this but has been sick. Taking tylenol for fever and body aches. Past Medical History: Diagnosis Date ??? Anxiety ??? Chronic kidney disease stones, history of infections ??? Depressive disorder ??? Gastroesophageal reflux disease ??? Psoriasis ??? Seizure (H) 05/02/2019 no seizure since approx 2017 ??? SVT (supraventricular tachycardia) (H) Current Outpatient Medications Medication Sig Dispense Refill ??? betamethasone dipropionate (DIPROSONE) 0.05 % external cream Apply topically 2 times daily 45 g 1 ??? levETIRAcetam (KEPPRA) 500 MG tablet Take [...] mg) by mouth daily 180 tablet 1 Social History Tobacco Use ??? Smoking status: Former Smoker Packs/day: 1.00 Types: Other Quit date: 12/07/2019 Years since quittin.6 ??? Smokeless tobacco: Never Used Substance Use Topics ??? Alcohol use: Not Currently ROS: Review of systems negative except as stated above. OBJECTIVE: BP 121/78 Pulse 92 Temp 98.1 ??F (36.7 ??C) Resp 16 LMP 07/07/2021 SpO2 96% GENERAL APPEARANCE: healthy, alert and no distress EYES: EOMI, PERRL, conjunctiva mildly pink on right RESP: lungs clear to auscultation - no rales, rhonchi or wheezes PSYCH: mentation appears normal and affect normal/bright Results for orders placed or performed in visit on 07/18/21 XR Chest 2 Views Status: None Narrative EXAM: XR CHEST 2 VW LOCATION: [facility] DATE/TIME: 07/18/2021 4:39 PM INDICATION: cough, SOB, COVID exposure/suspect COMPARISON: 08/06/2020. Impression IMPRESSION: Negative chest. Comprehensive metabolic panel (BMP + Alb, Alk Phos, ALT, AST, Total. Bili, TP) Status: Abnormal Result Value Ref Range Sodium 134 133 - 144 mmol/L Potassium 4.2 3.4 - 5.3 mmol/L Chloride 107 94 - 109 mmol/L Carbon Dioxide (CO2) 25 20 - 32 mmol/L Anion Gap 2 (L) 3 - 14 mmol/L Urea Nitrogen 7 7 - 30 mg/dL Creatinine 0.40 (L) 0.52 - 1.04 mg/dL Calcium 9.4 8.5 - 10.1 mg/dL Glucose 92 70 - 99 mg/dL Alkaline Phosphatase 60 40 - 150 U/L AST 23 0 - 45 U/L ALT 20 0 - 50 U/L Protein Total 7.9 6.8 - 8.8 g/dL Albumin 4.3 3.4 - 5.0 g/dL Bilirubin Total 0.5 0.2 - 1.3 mg/dL GFR Estimate >90 >60 mL/min/1.73m2 ESR: Erythrocyte sedimentation rate Status: Normal Result Value Ref Range Erythrocyte Sedimentation Rate 10 0 - 20 mm/hr CBC with platelets and differential Status: Abnormal Result Value Ref Range WBC Count 3.5 (L) 4.0 - 11.0 10e3/uL RBC Count 5.10 3.80 - 5.20 10e6/uL Hemoglobin 12.9 11.7 - 15.7 g/dL Hematocrit 40.0 35.0 - 47.0 % MCV 78 78 - 100 fL MCH 25.3 (L) 26.5 - 33.0 pg MCHC 32.3 31.5 - 36.5 g/dL RDW 13.9 10.0 - 15.0 % Platelet Count 214 150 - 450 10e3/uL % Neutrophils 43 % % Lymphocytes 38 % % Monocytes 16 % % Eosinophils 3 % % Basophils 1 % Absolute Neutrophils 1.5 (L) 1.6 - 8.3 10e3/uL Absolute Lymphocytes 1.3 0.8 - 5.3 10e3/uL Absolute Monocytes 0.6 0.0 - 1.3 10e3/uL Absolute Eosinophils 0.1 0.0 - 0.7 10e3/uL Absolute Basophils 0.0 0.0 - 0.2 10e3/uL Influenza A/B antigen Status: Normal Specimen: Nose; Swab Result Value Ref Range Influenza A antigen Negative Negative Influenza B antigen Negative Negative Narrative Test results must be correlated with clinical data. If necessary, results should be confirmed by a molecular assay or viral culture. Streptococcus A Rapid Screen w/Reflex to PCR - Clinic Collect Status: Normal Specimen: Throat; Swab Result Value Ref Range Group A Strep antigen Negative Negative CBC with platelets and differential Status: Abnormal Narrative The following orders were created for panel order CBC with platelets and differential. Procedure Abnormality Status --------- ------ CBC with platelets and d...[[id number]] Abnormal Final result Please view results for these tests on the individual orders. CXR - no acute infiltrate, no pleural effusion, no pneumothorax personally viewed by me ASSESSMENT/PLAN: (R50.9) Fever in adult (primary encounter diagnosis) Plan: Symptomatic; Unknown COVID-19 Virus (Coronavirus) by PCR Nose, Influenza A/B antigen, Streptococcus A Rapid Screen w/Reflex to PCR - Clinic Collect, Group A Streptococcus PCR Throat Swab (R06.02) SOB (shortness of breath) Plan: Symptomatic; Unknown COVID-19 Virus (Coronavirus) by PCR Nose, Influenza A/B antigen, XR Chest 2 Views, Comprehensive metabolic panel (BMP + Alb, Alk Phos, ALT, AST, Total. Bili, TP), CBC with platelets and differential, ESR: Erythrocyte sedimentation rate (R52) Body aches Plan: Symptomatic; Unknown COVID-19 Virus (Coronavirus) by PCR Nose, Influenza A/B antigen (Z20.822) Suspected 2019 novel coronavirus infection Plan: XR Chest 2 Views, Comprehensive metabolic panel (BMP + Alb, Alk Phos, ALT, AST, Total. Bili, TP), CBC with platelets and differential, ESR: Erythrocyte sedimentation rate (R00.2) Palpitations Plan: Comprehensive metabolic panel (BMP + Alb, Alk Phos, ALT, AST, Total. Bili, TP), CBC with platelets and differential Close household positive COVID exposure, reviewed that symptoms presentation is probable COVID infection. COVID screen obtained today to verify and discussed quarantine guidelines. Encourage tylenol, ibuprofen, plenty of fluids and rest. Will follow up on throat culture and treat if positive for strep. Will follow up on CXR report and notify if any abnormalities. Defer albuterol inhaler as this may worsen palpitations/SVT. Reviewed importance of fluid hydration. Will follow up on pending labs and notify if any abnormalities. Reviewed that palpitations and SVT will need to be addressed by cardiology and PCP, if develops elevated HR then needs to be seen in ER as SVT is outside UC capability. Follow up with primary provider within 1 week Charge base on time Activity Duration Chart accessed 2 minutes Chart accessed < 1 minute Chart accessed < 1 minute Chart accessed < 1 minute Chart accessed < 1 minute Exam room 24 minutes Chart accessed 5 minutes Chart accessed < 1 minute Chart accessed < 1 minute Chart accessed 1 minute Current session 8 minutes Total time: 45 minutes* *Based only on time spent in the patient's chart Mani Gentile MD July 18, 2021 8:58 PM UCT REPRESENTATIVE documented in this encounter Miscellaneous Notes Result Encounter Note - Kaila Munoz LPN - 07/18/2021 3:00 PM CST Patient has reviewed their COVID-19 lab results via [employer] UCT REPRESENTATIVE documented in this encounter Plan of Treatment Upcoming Encounters Date Type Specialty Care Team Description 04/28/2022 Office Visit [facility] Anthony Doe, PA-C [address] [place], [place] [phone] (Wo rk) 05/03/2022 Office Visit Dermatology Neil Kent M D [address] [place], [place] [phone] (Wo rk) 05/05/2022 Office Visit Optometry Yeny David, OD [address] [facility] [address] [place] [phone] (Wo rk) 05/11/2022 Virtual Visit Pharm D Diana Desir , [facility] [address] [place], [place] [phone] (Wo rk) 05/14/2022 Office Visit Cardiology Livan Sharif MD [address] [facility] [address] [place], [place] [address] (Wo rk) 05/31/2022 Office Visit [facility] Valery Veronica , PA-C [address] [place] [address] (Wo rk) documented as of this encounter Procedures Procedure Name Priority Date/Time Associated Comments Diagnosis XR CHEST 2 VIEWS Routine 07/18/2021 5:06 PM SOB (shortness of Results for this PRODUCT REPRESENTATIVE breath) procedure are in Suspected 2019 the results novel coronavirus section. infection CBC WITH PLATELETS AND Today 07/18/2021 5:04 PM SOB (shortne ss of Results for this DIFFERENTIAL PRODUCT REPRESENTATIVE breath) procedure are in Suspected 2019 the results novel coronavirus section. infection Palpitations CBC WITH PLATELETS & Today 07/18/2021 5:04 PM SOB (shortness of Results for this DIFFERENTIAL PRODUCT REPRESENTATIVE breath) procedure are in Suspected 2019 the results novel coronavirus section. infection Palpitations ERYTHROCYTE Today 07/18/2021 5:04 PM SOB (shortness of Resu lts for this SEDIMENTATION RATE PRODUCT REPRESENTATIVE breath) procedure are in AUTO Suspected 2019 the results novel coronavirus section. infection COMPREHENSIVE STAT 07/18/2021 5:04 PM SOB (shortness of Res ults for this METABOLIC PANEL PRODUCT REPRESENTATIVE breath) procedure are in Suspected 2019 the results novel coronavirus section. infection Palpitations STREPTOCOCCUS A RAPID Routine 07/18/2021 4:43 PM Fever in adul t Results for this SCREEN W REFELX TO PCR PRODUCT REPRESENTATIVE proce dure are in the results section. GROUP A STREPTOCOCCUS Routine 07/18/2021 4:43 PM Fever in adul t Results for this PCR THROAT SWAB PRODUCT REPRESENTATIVE procedure ar e in the results section. COVID-19 VIRUS Routine 07/18/2021 3:12 PM Fever in adul t Results for this (CORONAVIRUS) BY PCR PRODUCT REPRESENTATIVE SOB (shortness of pr ocedure are in breath) the results Body aches section. INFLUENZA A/B ANTIGEN Routine 07/18/2021 3:12 PM Fever i n adult Results for this PRODUCT REPRESENTATIVE SOB (shortness of procedure are in breath) the results Body aches section. documented in this encounter Results XR Chest 2 Views (07/18/2021 5:06 PM PRODUCT REPRESENTATIVE) Anatomical Region Laterality Modality Chest Computed Radiography Specimen (Source) Anatomical Collection Method Collection Time Re ceived Time Location / / Volume Laterality 07/18/2021 4:39 PM PRODUCT REPRESENTATIVE Impressions 07/18/2021 5:11 PM PRODUCT REPRESENTATIVE IMPRESSION: Negative chest. Narrative 07/18/2021 5:11 PM PRODUCT REPRESENTATIVE EXAM: XR CHEST 2 VW LOCATION: [facility] DATE/TIME: 07/18/2021 4:39 PM INDICATION: cough, SOB, COVID exposure/s uspect COMPARISON: 08/06/2020. Procedure Note Augustus Lozano MD - 07/18/2021Formatt ing of this note might be different from the original. EXAM: XR CHEST 2 VW LOCATION: [facility] DATE/TIME: 07/18/2021 4:39 PM INDICATION: cough, SOB, COVID exposure/s uspect COMPARISON: 08/06/2020. IMPRESSION: Negative chest. Mani Gentile MD IMG DIAGNOSTIC IMAGING ORDER GARY (ABNORMAL) CBC with platelets and differential (07/18/2021 5:04 PM PRODUCT REPRESENTATIVE) [facility] gist Method Time Signature WBC Count 3.5 (L) 4.0 - 07/18/2021 [facility] 11.0 5:11 PM PRODUCT REPRESENTATIVE 10e3/uL RBC Count 5.10 3.80 - 07/18/2021 [facility] 5.20 5:11 PM PRODUCT REPRESENTATIVE 10e6/uL Hemoglobin 12.9 11.7 - 07/18/2021 [facility] 15.7 g/dL 5:11 PM PRODUCT REPRESENTATIVE Hematocrit 40.0 35.0 - 07/18/2021 [facility] 47.0 % 5:11 PM PRODUCT REPRESENTATIVE MCV 78 78 - 100 07/18/2021 [facility] fL 5:11 PM PRODUCT REPRESENTATIVE MCH 25.3 (L) 26.5 - 07/18/2021 [facility] 33.0 pg 5:11 PM PRODUCT REPRESENTATIVE MCHC 32.3 31.5 - 07/18/2021 [facility] 36.5 g/dL 5:11 PM PRODUCT REPRESENTATIVE RDW 13.9 10.0 - 07/18/2021 [facility] 15.0 % 5:11 PM PRODUCT REPRESENTATIVE Platelet Count 214 150 - 450 07/18/2021 [facility] 10e3/uL 5:11 PM PRODUCT REPRESENTATIVE % Neutrophils 43 % 07/18/2021 [facility] 5:11 PM PRODUCT REPRESENTATIVE % Lymphocytes 38 % 07/18/2021 [facility] 5:11 PM PRODUCT REPRESENTATIVE % Monocytes 16 % 07/18/2021 [facility] 5:11 PM PRODUCT REPRESENTATIVE % Eosinophils 3 % 07/18/2021 [facility] 5:11 PM PRODUCT REPRESENTATIVE % Basophils 1 % 07/18/2021 [facility] 5:11 PM PRODUCT REPRESENTATIVE Absolute 1.5 (L) 1.6 - 8.3 07/18/2021 [facility] Neutrophils 10e3/uL 5:11 PM PRODUCT REPRESENTATIVE Absolute 1.3 0.8 - 5.3 07/18/2021 [facility] Lymphocytes 10e3/uL 5:11 PM PRODUCT REPRESENTATIVE Absolute 0.6 0.0 - 1.3 07/18/2021 [facility] Monocytes 10e3/uL 5:11 PM PRODUCT REPRESENTATIVE Absolute 0.1 0.0 - 0.7 07/18/2021 [facility] Eosinophils 10e3/uL 5:11 PM PRODUCT REPRESENTATIVE Absolute 0.0 0.0 - 0.2 07/18/2021 [facility] Basophils 10e3/uL 5:11 PM PRODUCT REPRESENTATIVE Specimen Anatomical Collection Method / Collection Time Recei chelsie Time (Source) Location / Volume Laterality Blood STRUCTURE OF RIGHT Venipuncture / 07/18/2021 5:04 /0 02/2022 5:04 UPPER LIMB / Unknown PM PRODUCT REPRESENTATIVE PM PRODUCT REPRESENTATIVE Unknown Mani Gentile MD LAB - BLOOD ORDERABLES Performing Organization Address City/State/ZIP Code Phon e Number LABORATORY [facility] [place] [address] [place] [address] [address] LABORATORY [facility] [place] [phone] [place] [address] [place] [address] [address] ESR: Erythrocyte sedimentation rate (07/18/2021 5:04 PM PRODUCT REPRESENTATIVE) [facility] gist Method Time Signature Erythrocyte 10 0 - 20 07/18/2021 [facility] Sedimentation Rate mm/hr 5:15 PM PRODUCT REPRESENTATIVE Specimen Anatomical Collection Method / Collection Time Recei chelsie Time (Source) Location / Volume Laterality Blood STRUCTURE OF RIGHT Venipuncture / 07/18/2021 5:04 /0 02/2022 5:04 UPPER LIMB / Unknown PM PRODUCT REPRESENTATIVE PM PRODUCT REPRESENTATIVE Unknown Mani Gentile MD LAB - BLOOD ORDERABLES Performing Organization Address City/State/ZIP Code Phon e Number LABORATORY [facility] [place] [address] [place] [address] [address] [place] [address], [facility] [[email or web address]] [phone] Clinic - [place] [facility] [address] [facility] [address] (ABNORMAL) Comprehensive metabolic panel (BMP + Alb, Alk Phos, ALT, AST, Total. Bili, TP) (07/18/2021 5:04 PM PRODUCT REPRESENTATIVE) [facility] Method Time Signature Sodium 134 133 - 144 07/18/2021 [facility] mmol/L 6:36 PM PRODUCT REPRESENTATIVE Potassium 4.2 3.4 - 5.3 07/18/2021 [facility] mmol/L 6:36 PM PRODUCT REPRESENTATIVE Chloride 107 94 - 109 07/18/2021 [facility] mmol/L 6:36 PM PRODUCT REPRESENTATIVE Carbon Dioxide 25 20 - 32 07/18/2021 [facility] (CO2) mmol/L 6:36 PM PRODUCT REPRESENTATIVE Anion Gap 2 (L) 3 - 14 07/18/2021 [facility] mmol/L 6:36 PM PRODUCT REPRESENTATIVE Urea Nitrogen 7 7 - 30 07/18/2021 [facility] mg/dL 6:36 PM PRODUCT REPRESENTATIVE Creatinine 0.40 (L) 0.52 - 07/18/2021 [facility] 1.04 6:36 PM PRODUCT REPRESENTATIVE mg/dL Calcium 9.4 8.5 - 07/18/2021 [facility] 10.1 6:36 PM PRODUCT REPRESENTATIVE mg/dL Glucose 92 70 - 99 07/18/2021 [facility] mg/dL 6:36 PM PRODUCT REPRESENTATIVE Alkaline 60 40 - 150 07/18/2021 [facility] Phosphatase U/L 6:36 PM PRODUCT REPRESENTATIVE AST 23 0 - 45 07/18/2021 [facility] U/L 6:36 PM PRODUCT REPRESENTATIVE ALT 20 0 - 50 07/18/2021 [facility] U/L 6:36 PM PRODUCT REPRESENTATIVE Protein Total 7.9 6.8 - 8.8 07/18/2021 [facility] g/dL 6:36 PM PRODUCT REPRESENTATIVE Albumin 4.3 3.4 - 5.0 07/18/2021 [facility] g/dL 6:36 PM PRODUCT REPRESENTATIVE Bilirubin Total 0.5 0.2 - 1.3 07/18/2021 [facility] mg/dL 6:36 PM PRODUCT REPRESENTATIVE GFR Estimate >90 >60 07/18/2021 [facility] mL/min/1. 6:36 PM PRODUCT REPRESENTATIVE 73m2 Comment: Effective June 30, 2021 eGF Rcr in adults is calculated using the 2020 CKD-EPI creatinine equation which includ es age and gender (Hermilo et al., NEJM, DOI: 10.1056/ZPGZzj1771404) Specimen Anatomical Collection Method / Collection Time Recei chelsie Time (Source) Location / Volume Laterality Blood STRUCTURE OF RIGHT Venipuncture / 07/18/2021 5:04 01/0 02/2022 5:04 UPPER LIMB / Unknown PM PRODUCT REPRESENTATIVE PM PRODUCT REPRESENTATIVE Unknown Mani Gentile MD LAB - BLOOD ORDERABLES Performing Organization Address City/[facility] Phon e Number [facility] [place] [address] [address] [facility] [address] [facility] [place] [address], [facility] [[email or web address]] [facility] [place] [facility] [address] [facility] [employer] [address] Group A Streptococcus PCR Throat Swab (07/18/2021 4:43 PM PRODUCT REPRESENTATIVE) [facility] Method Time Signature Group A strep Not Detected Not Detected 07/19/2021 [facility] by PCR 4:30 PM PRODUCT REPRESENTATIVE LABORATORY Specimen Anatomical Collection Method Collection Time Receive d Time (Source) Location / / Volume Laterality Swab STRUCTURE OF Non-blood 07/18/2021 4:43 PM 5:17 ANTERIOR PORTION Collection / PRODUCT REPRESENTATIVE PM PRODUCT REPRESENTATIVE OF NECK / Unknown Unknown Narrative [facility] LABORATORY - 07/19/2021 4:[address] The Xpert Xpress Strep A test, performed on the [employer] Systems, is a rapid, qualitative in [...] reaction (PCR) to detect Streptococcus pyogenes DNA. Mani Gentile MD LAB - MICRO GENERAL ORDERABL ES Performing Organization Address City/[facility]/ZIP Code Phon e Number [facility] LABORATORY [facility] [place] [phone] Diag. Lab [address] [facility] [facility] IDD LABORATORY [facility] Infectious [place], [place] [phone] Diseases Diagnostic [id number], [place] Lab (IDDL) [address] [facility] Streptococcus A Rapid Screen w/Reflex to PCR - Clinic Collect (07/18/2021 4:43 PM PRODUCT REPRESENTATIVE) Analysis Performed At [facility] Group A Strep Negative Negative 07/18/2021 [facility] antigen 5:17 PM PRODUCT REPRESENTATIVE Specimen Anatomical Collection Method Collection Time Receive d Time (Source) Location / / Volume Laterality Swab STRUCTURE OF Non-blood 07/18/2021 4:43 PM 5:10 ANTERIOR PORTION Collection / PRODUCT REPRESENTATIVE PM PRODUCT REPRESENTATIVE OF NECK / Unknown Unknown Mani Gentile MD LAB - MICRO GENERAL ORDERABL ES Performing Organization Address City/State/ZIP Code Phon e Number [facility] [place] [phone] [place] [address] [address] [facility] [place] [address], [facility] [[email or web address]] [phone] [facility] [place] [facility] [address] [facility] [address] Influenza A/B antigen (07/18/2021 3:12 PM PRODUCT REPRESENTATIVE) Analysis Performed At [facility] Influenza A Negative Negative 07/18/2021 [facility] antigen 4:02 PM PRODUCT REPRESENTATIVE Influenza B Negative Negative 07/18/2021 [facility] antigen 4:02 PM PRODUCT REPRESENTATIVE Specimen Anatomical Collection Method Collection Time Receive d Time (Source) Location / / Volume Laterality Swab NASAL STRUCTURE / Non-blood 07/18/2021 3:12 PM /0 02/2022 3:47 Unknown Collection / PRODUCT REPRESENTATIVE PM PRODUCT REPRESENTATIVE Unknown Narrative [facility] - 07/18/2021 4:02 PM PRODUCT REPRESENTATIVE Test results must be correlated with cli nical data. If necessary, results should be confirmed by a molecular assay or viral culture. Mani Gentile MD LAB - MICRO GENERAL ORDERABL ES Performing Organization Address City/State/ZIP Code Phon e Number [facility] [place] [facility] [place] [phone] [facility] [facility] [address] [facility] [place] [phone], [facility] [[email or web address] [facility] - [place] [facility] [address] [facility] [address] (ABNORMAL) Symptomatic; Unknown COVID-19 Virus (Coronavirus) by PCR Nose (07/18/2021 3:12 PM PRODUCT REPRESENTATIVE) [facility] Method Time Signature SARS CoV2 PCR Positive Negative, 07/20/2021 [facility] (A) Testing sent 1:56 PM PRODUCT REPRESENTATIVE LABORATORY to reference lab. Results will be returned via unsolicited result Comment: POSITIVE: SARS-CoV-2 (COVID-19) RNA detected, presumed positive. Specimen Anatomical Collection Method Collection Time Receive d Time (Source) Location / / Volume Laterality Swab NASAL STRUCTURE / Non-blood 07/18/2021 3:12 PM 02/2022 3:47 Unknown Collection / PRODUCT REPRESENTATIVE PM PRODUCT REPRESENTATIVE Unknown Narrative [facility]ORY - 07/20/2021 1:[address] Testing was performed using the candy SARS-CoV-2 assay on the candy 6800 System. This test should be ordered for [...] This hang t was validated by the [facility] Infectious Diseases Diag nostic Laboratory. This laboratory is certified under the Clinic al Laboratory Improvement Amendments of 1988 (CLIA-88) as qualifie d to perform high and/or moderate complexity laboratory testing. Mani Gentile MD LAB - MICRO GENERAL ORDERABL ES Performing Organization Address City/State/ZIP Code Phon e Number [facility] IDD LABORATORY [facility] [place] [address] Diag. Lab [address] [facility] [facility] LABORATORY [facility] Infectious [place], [place] [phone] Diseases Diagnostic [phone], [facility] [email or web address] Lab (IDDL) [address] [facility], Room D297 documented in this encounter Visit Diagnoses Diagnosis Fever in adult - Primary SOB (shortness of breath) Shortness of breath Body aches Generalized pain Suspected 2019 novel coronavirus infecti on Palpitations documented in this encounter Additional Health Concerns Infection Onset Date Last Indicated Resolved Time Rule Out COVID-19 07/18/2021 07/18/2021 07/20/2021 1:5 6 PM PRODUCT REPRESENTATIVE Assessment Noted Time PHQ-9 Depression Total Score: 2 04/02/2021 10:19 AM CD T documented as of this encounter Care Teams Senior Rd Engineer Relationship Specialty Start Date End Date Marija Edgar APRN PCP - General Nurse Practitioner 04/30/20 PHARMACY INFORMATICS SPECIALIST [address] [place] [address] Lita Oseguera Personal Advocate & 02/28/20 Liaison (PAL) Marija Edgar APRN Assigned PCP 06/08/20 PHARMACY INFORMATICS SPECIALIST [address] [place] [address] Mynor Broussard MD Assigned Surgical 06/01/20 11/28/21 [address] Provider [address] [place] [address] Keisha Dotson, Assigned Neuroscience 06/04/20 MD Provider [address] [place] [address] Galo Burrell MD Assigned Heart and 10/05/20 04/02/22 [address] [place] [address] Diana Desir, [facility] Pharmacist Pharmacist 04/17/21 [address] [place] [address] Rain Galaviz Physician Machine Woodworking Sander Dermatology 04/28/21 ROVERTO Paredes [address] [place] [address] Summer Lara MD Assigned OBGYN Provider 05/31/21 03/12/22 [address] [place], [place] [id number] Tavia Wyatt MD MD Dermatology 07/14/21 documented as of this encounter
--- OUTSIDE RECORDS SUMMARY | 2022-04-28 01:11 | XMS_ITS | Encounter Summary ---
:2000 Author Organization [place] Address [address] [place] [address] Care Team Providers Name Role Phone Lita Oseguera Unavailable Unavailable Marija Edgar APRN SENIOR RESEARCH MANAGER Primary Care Provider [phone] Marija Edgar APRN SENIOR RESEARCH MANAGER Unavailable Mynor Broussard MD Unavailable Keisha Dotson MD Unavailable Galo Burrell MD Unavailable Diana Desir [facility] Unavailable Rain Galaviz PA-C Unavailable [phone] Summer aLra MD Unavailable Tavia Wyatt MD Unavailable Unavailable Reason for Visit Reason Onset Date Comments Orders 07/15/2021 Encounter Details Date Type Department Care Team Description 07/15/2021 Telephone [facility] Rico Rendon RN Orders [place] [address] [facility] [address] [place] [address] Social History Tobacco Use Types [...] week 09/22/2021 How often do you attend amish or rastafarian services? Never 09/22/2021 Do you belong to any clubs or organizations such as No 09/22/2021 amish groups, unions, fraternal or athletic groups, or [...] in contact with Yes 07/15/2021 12:15 PM DORMITORY SUPERVISOR someone who was confirmed or suspected to have Coronavirus / COVID-19? documented as of this encounter Plan of Treatment Upcoming Encounters Date Type Specialty Care Team Description 04/28/2022 Office Visit Family Practice Anthony Doe PA-C [address] [place], [place] [phone] (Wo rk) 05/03/2022 Office Visit Dermatology Neil Kent M D [address] [place] [address] (Wo rk) 05/05/2022 Office Visit Optometry Yeny David, OD [address] [facility] [address] [place] [phone] (Wo rk) 05/11/2022 Virtual Visit Pharm Diana Eckert , [facility] [address] [place] [address] (Wo rk) 05/14/2022 Office Visit Cardiology Livan Sharif MD [address] [place], [place] [address] (Wo rk) 05/31/2022 Office Visit Family Practice Valery Veronica , PAUcheC [address] [place], [place] [phone] (Wo rk) documented as of this encounter Visit Diagnoses Diagnosis SVT (supraventricular tachycardia) (H) - Primary Other specified cardiac dysrhythmias documented in this encounter Additional Health Concerns Assessment Noted Time PHQ-9 Depression Total Score: 2 04/02/2021 10:19 AM CD T documented as of this encounter Care Teams Dish Washer Relationship Specialty Start Date End Date Marija Edgar APRN PCP - General Nurse Practitioner 04/30/20 SENIOR RESEARCH MANAGER [address] [place] [address] Lita Oseguera Personal Advocate & 02/28/20 Liaison (PAL) Marija Edgar APRN Assigned PCP 06/08/20 SENIOR RESEARCH MANAGER [address] [place], [place] [phone] Mynor Broussard MD Assigned Surgical 06/01/20 11/28/21 [address] Provider [address] [place], [place] [address] Trevor-Keisha Peter, Assigned Neuroscience 06/04/20 MD Provider [address] [place] [address] Galo Burrell MD Assigned Heart and 10/05/20 04/02/22 [address] [facility] [address] Vascular Provider [place] [address] Diana Desir, [facility] Pharmacist Pharmacist 04/17/21 [address] [place] [address] Rain Galaviz Physician Recruitment Manager Dermatology 04/28/21 ROVERTO Paredes [address] [facility] [address] [place], [place] [phone] Summer Lara MD Assigned OBGYN Provider 05/31/21 03/12/[address] [place], [place] [address] Tavia Wyatt MD MD Dermatology 07/14/21 documented as of this encounter
--- OUTSIDE RECORDS SUMMARY | 2022-04-28 01:11 | XMS_ITS | Encounter Summary ---
:2000 Author Organization [place] Address [address] [place] [address] Care Team Providers Name Role Phone Lita Oseguera Unavailable Unavailable Marija Edgar APRN MRI TECHNOLOGIST Primary Care Provider [phone] Marija Edgar APRN MRI TECHNOLOGIST Unavailable Mynor Broussard MD Unavailable Keisha Dotson MD Unavailable Galo Burrell MD Unavailable Diana Desir [facility] Unavailable Rain Galaviz PA-C Unavailable [phone] Summer Lara MD Unavailable Tavia Wyatt MD Unavailable Unavailable Reason for Visit (Routine) - Closed Specialty Diagnoses / Procedures Referred By Contact Refer red To Contact Radiology / Radiology. Diagnoses epic order sb pt Rh Ct Scan Rscc Procedures CT CERVICAL SPINE WWO [address] [facility] [address] [place] [address] Phone: Fax: Referral ID Status Reason Start Date Expiration Date Visits Requ ested Visits Authorized [id number] Closed 07/24/2021 07/24/2022 1 1 Encounter Details Date Type Department Care Team Description 08/03/2021 Hospital Encounter [facility] Jama Dotson of left upper [facility] MD Keisha extremity [address] [place] [address] [phone] Social History Tobacco Use Types Packs/Day [...] How often do you attend adventism or judaism services? Never 09/22/2021 Do you [...] been in contact with No / Unsure 08/03/2021 2:24 PM SENIOR ENVIRONMENTAL SCIENTIST someone who was confirmed or suspected to [...] daily Anxiety documented as of this encounter Plan of Treatment Upcoming Encounters Date Type Specialty Care Team Description 04/28/2022 Office Visit Family Practice Anthony Doe, ROVERTO [address] [place] [address] (Wo rk) 05/03/2022 Office Visit Dermatology Neil Kent M D [address] [place], [place] [phone] (Wo rk) 05/05/2022 Office Visit Optometry Yeny David, OD [address] [facility] [address] [place] [phone] (Wo rk) 05/11/2022 Virtual Visit Pharm D Diana Desir , [facility] [address] [place], [place] [address] (Wo rk) 05/14/2022 Office Visit Cardiology Livan Sharif MD [address] [facility] [address] [place] [address] (Wo rk) 05/31/2022 Office Visit Family Practice Valery Veronica PA-C 9[address] [place] [address] (Wo rk) documented as of this encounter Procedures Procedure Name Priority Date/Time Associated Diagnosis Comme nts CT CERVICAL SPINE Routine 08/03/2021 2:37 PM Pain of left uppe r Results for this W/O CONTRAST SENIOR ENVIRONMENTAL SCIENTIST extremity procedure are i n the results section. documented in this encounter Results CT Cervical Spine w/o Contrast (08/03/2021 2:37 PM SENIOR ENVIRONMENTAL SCIENTIST) Anatomical Region Laterality Modality Spine, SUBRAD CT NEURO, SUBRAD CT NEURO, UMP CT SPINE, Computed Tomography RAD CT Specimen (Source) Anatomical Location Collection Method / Collectio n Time Received Time / Laterality Volume Impressions 08/03/2021 5:09 PM SENIOR ENVIRONMENTAL SCIENTIST IMPRESSION: 1. Nonspecific sclerotic lesion in the r ight aspect of the C4 vertebral body, as described. This proba namrata represents a benign lesion such as a bone island in a young adult p atient without a history of malignancy. Other possibilities such as osteoblastic metastatic disease cannot be entirely excluded. As clinically warranted, MRI of the cervical spine without and with cont rast may be helpful for further evaluation. 2. No fracture or other acute osseous ab normality. 3. No significant spinal canal or neural foraminal stenosis. CHIDI SOLORZANO MD SYSTEM ID: ??[id number] Narrative 08/03/2021 5:09 [address] SENIOR ENVIRONMENTAL SCIENTIST CT CERVICAL SPINE WITHOUT CONTRAST ?? 08/03/2021 2:37 PM HISTORY: Pain of left upper extremity TECHNIQUE: Axial images of the cervical spine were obtained without intravenous contrast. Multiplanar reform ations were performed. Radiation dose for this scan was reduced using automated exposure control, adjustment of the mA and/or kV according to patient size, or iterative reconstruction technique. COMPARISON: Cervical spine radiographs d ated 05/17/2019. Outside MRI brain dated 06/08/2021. FINDINGS: No fracture. Normal vertebral body heights. Straightening of the normal cervical lordosis, which may be positional. Slight levoconvex curvature centered near the c ervicothoracic junction. Alignment is otherwise normal. There is a uniformly sclerotic lesion wi th spiculated margins involving the right aspect of the C4 stalin tebral body and probably partially extending to involve the right transverse process/the lamas of the right transverse foramen. This me asures approximately 14 mm x 7 mm x 11 mm. This is nonspecific, but may represent a benign lesion such as a prominent bone island. It is s omewhat larger in size than typically seen for a bone island in the spine. Other possibilities such as osteoblastic metastatic disease cannot be entirely excluded by imaging features alone, but are thought to be less likely in an adult patient without history of malignancy. The intervertebral discs are relatively maintained in height. The facet joints appear within normal limits . Shallow multilevel disc bulges are noted. There is no significan t spinal canal or neural foraminal stenosis. A few calcified tons illoliths are seen. The visualized paraspinous soft tissues othe rwise appear unremarkable. Procedure Note Chidi Solorzano MD - 08/03/2021Formattin g of this note might be different from the original. CT CERVICAL SPINE WITHOUT CONTRAST 2021 2:37 PM HISTORY: Pain of left upper extremity TECHNIQUE: Axial images of the cervical spine were obtained without intravenous contrast. Multiplanar reform ations were performed. Radiation dose for this scan was reduced using automated exposure control, adjustment of the mA and/or kV according to patient size, or iterative reconstruction technique. COMPARISON: Cervical spine radiographs d ated 05/17/2019. Outside MRI brain dated 06/08/2021. FINDINGS: No fracture. Normal vertebral body heights. Straightening of the normal cervical lordosis, which may be positional. Slight levoconvex curvature centered near the c ervicothoracic junction. Alignment is otherwise normal. There is a uniformly sclerotic lesion wi th spiculated margins involving the right aspect of the C4 stalin tebral body and probably partially extending to involve the right transverse process/the lamas of the right transverse foramen. This me asures approximately 14 mm x 7 mm x 11 mm. This is nonspecific, but may represent a benign lesion such as a prominent bone island. It is s omewhat larger in size than typically seen for a bone island in the spine. Other possibilities such as osteoblastic metastatic disease cannot be entirely excluded by imaging features alone, but are thought to be less likely in an adult patient without history of malignancy. The intervertebral discs are relatively maintained in height. The facet joints appear within normal limits . Shallow multilevel disc bulges are noted. There is no significan t spinal canal or neural foraminal stenosis. A few calcified tons illoliths are seen. The visualized paraspinous soft tissues othe rwise appear unremarkable. IMPRESSION: 1. Nonspecific sclerotic lesion in the r ight aspect of the C4 vertebral body, as described. This proba namrata represents a benign lesion such as a bone island in a young adult p atient without a history of malignancy. Other possibilities such as osteoblastic metastatic disease cannot be entirely excluded. As clinically warranted, MRI of the cervical spine without and with cont rast may be helpful for further evaluation. 2. No fracture or other acute osseous ab normality. 3. No significant spinal canal or neural foraminal stenosis. CHIDI SOLORZANO MD SYSTEM ID: [id number] Keisha Dotson MD IMG CT ORDERABLES documented in this encounter Visit Diagnoses Diagnosis Pain of left upper extremity documented in this encounter Additional Health Concerns Infection Onset Date Last Indicated Resolved Time COVID-19 07/18/2021 07/18/2021 08/08/2021 11:39 PM SENIOR ENVIRONMENTAL SCIENTIST Assessment Noted Time PHQ-9 Depression Total Score: 2 04/02/2021 10:19 AM CD T documented as of this encounter Care Teams Automation And Controls Instructor Relationship Specialty Start Date End Date Marija Edgar APRN PCP - General Nurse Practitioner 04/30/20 MRI TECHNOLOGIST [address] [place] [address] Lita Oseguera Personal Advocate & 02/28/20 Liaison (PAL) Marija Edgar APRN Assigned PCP 06/08/20 MRI TECHNOLOGIST [address] [place], [place] [phone] Mynor Broussard MD Assigned Surgical 06/01/20 11/28/21 [address] Provider [address] [place] [address] Keisha Dotsno, Assigned Neuroscience 06/04/20 MD Provider [address] [place] [address] Galo Burrell MD Assigned Heart and 10/05/20 04/02/22 [address] [facility] [address] [place] [address] Diana Desir, [facility] Pharmacist Pharmacist 04/17/21 [address] [place] [address] Rain Galaviz Physician Auxiliary Operator Dermatology 04/28/21 ROVERTO Paredes [address] [place] [address] [place] [address] Summer Lara MD Assigned OBGYN Provider 05/31/21 03/12/[address] [place], [place] [address] Tavia Wyatt MD MD Dermatology 07/14/21 documented as of this encounter
--- OUTSIDE RECORDS SUMMARY | 2022-04-28 01:11 | XMS_ITS | Encounter Summary ---
:2000 Author Organization [facility] Address [address] [place] [address]. [place] [address] Care Team Providers Name Role Phone Lita Oseguera Unavailable Unavailable Marija Edgar APRN ROLLER DIE CUTTING 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 Primary Care Provider [phone] Marija Edgar APRN ROLLER DIE CUTTING 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 Unavailable Mynor Broussard MD Unavailable Keisha Dotson MD Unavailable Galo Burrell MD Unavailable Diana Desir [facility] Unavailable Rain Galaviz PA-C Unavailable Summer Lara MD Unavailable Tavia Wyatt MD Unavailable Unavailable Reason for Visit Reason Comments Derm Problem Flaky, red, itchy patches al l over body. Patient will scratch skin until bleeding. Patient is current ly using betamethasone dipropionate (DIPROSONE) 0.05 % external cream very occasionally. Patient is . Consultation (Routine) - Closed Specialty Diagnoses / Procedures Referred By Contact Refer red To Contact Dermatology Diagnoses Psoriasis Marija Edgar APRN [facility] [address] [place] [address] Phone: Referral ID Status Reason Start Date Expiration Date Visits Requ ested Visits Authorized [id number] Closed 04/14/2021 04/14/2022 1 1 Encounter Details Date Type Department Care Team Description 08/11/2021 [facility] [place] [address] [place] [phone] Social History Tobacco Use Types Packs/Day Years [...] week 09/22/2021 How often do you attend rastafarian or jainism services? Never 09/22/2021 Do you belong to any clubs or organizations such as No 09/22/2021 rastafarian groups, unions, fraternal or athletic groups, or [...] with No / Unsure 08/11/2021 8:54 AM SUPERVISOR CELL EFFICIENCY someone who was confirmed or suspected to have Coronavirus / COVID-19? documented as of this encounter Patient Instructions Patient InstructionsFabián Luz - 08/11/2021 9:15 AM CST For any affected areas with thick skin, you can apply augmented betamethasone twice daily. On the groin, underarms and face, do not apply betamethasone to this area. Instead, apply Protopic, which you can apply twice daily. You should not apply the topical steroids to your breasts while you are . You can applyVaseline I recommend using T-gel or T-merissa shampoo for the scalp. This is available over the counter and are made by [employer] Apply Lidex up to once a day to the scalp in any itchy spots. RVISOR CELL EFFICIENCY documented in this encounter Progress Notes Tavia Wyatt MD - 08/11/2021 9:15 AM CST [facility] Dermatology Note Encounter Date: Aug 11, 2021 Office Visit Dermatology Problem List: 1. Psoriasis, plaque type: Current - current tx: augmented betamethasone 0.05% oin, protopic 0.1% oin, Lidex 0.05% solution - previous tx: betamethasone cream Social history: Has a 7 month old child Assessment & Plan: # Psoriasis, plaque type. Chronic, flared. Briefly reviewed the pathogenesis of psoriasis. Reviewed that options for treatment are limited to topicals at this time, as she is currently . Discussed that light therapy would probably not work with her current schedule, but could be considered in the future. - Apply augmented betamethasone 0.05% ointment BID to thicker skin - Apply Protopic 0.1% BID PRN to the face, groin and axilla - Apply Lidex 0.05% solution PRN to the scalp for flares - Advised to use T-gel or T-merissa to the scalp daily as shampoo - Advised to avoid applying medications to the breast, as patient is breast feeding. OK to apply Vaseline/Aquaphor/Lanolin - RTC when done to explore options further Procedures Performed: None. Follow-up: 1 year(s) in-person, or earlier for new or changing lesions Staff and Scribe: Scribe Disclosure: I, Fabián Liu, am serving as a scribe to document services personally performed by this physician, Dr. Tavia Wyatt, based on data collection and the provider's statements to me. Provider Disclosure: The documentation recorded by the scribe accurately reflects the services I personally performed andthe decisions made by me. Tavia Wyatt MD Sliver Lap Tender Department of Dermatology [facility] Clin[facility]: , [facility]: , CC: Derm Problem (Flaky, red, itchy patches all over body. Patient will scratch skin until bleeding.Patient is currently using betamethasone dipropionate (DIPROSONE) 0.05 % external cream very occasionally. Patient is . ) HPI: Ms. Kim Johnson is a(n) 21 year old female who presents today as a new patient for a rash.. Many mychart messages to [facility] about appointments but patient has not been seen before in our system as far as I can tell. Rx for betamethasone 0.05% cream on chart. Relevant medical history: Having ablation 08/28/21 for SVT. Currently . Today, she notes that she has flaky, red itchy patches all over her body. She scratches this area until they bleed. She has been using betamethasone cream intermittently. She notes she was diagnosed with psoriasis 16 years ago, and it had improved until after her . Of note, she is currently. Patient is otherwise feeling well, without additional skin concerns. Labs Reviewed: N/A Physical Exam: Vitals: There were no vitals taken for this visit. SKIN: Focused examination of scalp, trunk, upper extremities and lower extremities was performed. - Scattered pink plaques with loose scale throughout scalp, most on parietal scalp - Circular salmon pink plaques with scale on the neck - Left mid back, upper back, chest, a few scattered pink papules with minimal papules - [place] plaques with overlying skin colored scale on MCPs, clustered at extensor elbows, left upper arm, and extensor knees - No other lesions of concern on areas examined. Medications: Current Outpatient Medications Medication ??? betamethasone dipropionate (DIPROSONE) 0.05 % external cream ??? levETIRAcetam (KEPPRA) 500 MG tablet ??? omeprazole (PRILOSEC) [address] capsule ??? Vit-Fe Fumarate-FA ( MULTIVITAMIN W/IRON) 27-0.8 MG tablet ??? sertraline (ZOLOFT) 100 MG tablet No current facility-administered medications for this visit. Past Medical History: Patient Active Problem List Diagnosis ??? Seizure (H) ??? Depressed ??? Anxiety ??? Tobacco abuse counseling ??? Psoriasis ??? Head ache ??? Right ureteral stone ??? Left ureteral stone ??? Asthma ??? KALYN (generalized anxiety disorder) ??? Encounter for triage in patient ??? Term ??? Moderate major depression (H) ??? Encounter for pharmacogenetic testing ??? 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 CYP2C9 intermediate metabolizer (H) Past Medical History: Diagnosis Date ??? Anxiety ??? Chronic kidney disease stones, history of infections ??? Depressive disorder ??? Gastroesophageal reflux disease ??? Psoriasis ??? Seizure (H) 05/02/2019 no seizure since 2017 ??? SVT (supraventricular tachycardia) (H) TALI Edgar APRN ROLLER DIE CUTTING 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 [address] [place] [address] on close of this encounter. RVISOR CELL EFFICIENCY documented in this encounter Nursing Notes Pricila Jensen CMA - 08/11/2021 9:15 AM CST Kim Johnson's goals for this visit include: Chief Complaint Patient presents with ??? Derm Problem Flaky, red, itchy patches all over body. Patient will scratch skin until bleeding. Patient is currently using betamethasone dipropionate (DIPROSONE) 0.05 % external cream very occasionally. Patient isbreastfeeding. She requests these members of her care team be copied on today's visit information: PCP: Marija Edgar Referring Provider: Marija Edgar APRN ROLLER DIE CUTTING 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 [address] [place] [address] There were no vitals taken for this visit. Do you need any medication refills at today's visit? No Pricila Lau CMA RVISOR CELL EFFICIENCY documented in this encounter Plan of Treatment Upcoming Encounters Date Type Specialty Care Team Description 04/28/2022 Office Visit [facility] Anthony Doe PA-C [address] [place] [address] (Wo rk) 05/03/2022 Office Visit Dermatology Neil Kent M D [address] [place] [address] (Wo rk) 05/05/2022 Office Visit Optometry Yeny David, OD [address] [facility] [address] [place] [phone] (Wo rk) 05/11/2022 Virtual Visit Pharm D Diana Desir , [facility] [address] [place], [place] [phone] (Wo rk) 05/14/2022 Office Visit Cardiology Liavn Sharif MD [address] [facility] [address] [place], [place] [address] (Wo rk) 05/31/2022 Office Visit Family Practice Valery Veronica [address] [place] [address] (Wo rk) documented as of this encounter Visit Diagnoses Diagnosis Psoriasis - Primary Other psoriasis documented in this encounter Additional Health Concerns Assessment Noted Time PHQ-9 Depression Total Score: 2 04/02/2021 10:19 AM CD T documented as of this encounter Care Teams Outdoor Studies Professor Relationship Specialty Start Date End Date Marija Edgar APRN PCP - General Nurse Practitioner 04/30/20 ROLLER DIE CUTTING 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 [address] [place] [address] Lita Oseguera Personal Advocate & 02/28/20 Liaison (PAL) Marija Edgar APRN Assigned PCP 06/08/20 ROLLER DIE CUTTING 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 [address] [place] [address] Mynor Broussard MD Assigned Surgical 06/01/20 11/28/21 [address] Provider [address] [place] [address] Trevor-Keisha Peter, Assigned Neuroscience 06/04/20 MD Provider [address] [place] [address] Galo Burrell MD Assigned Heart and 10/05/20 04/02/22 [address] [place] [address] Diana Desir, [facility] Pharmacist Pharmacist 04/17/21 [address] [place], [place] [address] Rain Galaviz Physician Hide Curer Dermatology 04/28/21 ROVERTO Paredes [address] [place], [place] [phone] Summer Lara MD Assigned OBGYN Provider 05/31/21 03/12/[address] [place] [address] Tavia Wyatt MD MD Dermatology 07/14/21 documented as of this encounter
--- OUTSIDE RECORDS SUMMARY | 2022-04-28 01:11 | XMS_ITS | Encounter Summary ---
:2000 Author Organization [facility] Address [address] [place] [address] Care Team Providers Name Role Phone Lita Oseguera Unavailable Unavailable Marija Edgar APRN FEDERAL LAW CLERK Primary Care Provider [phone] Marija Edgar APRN FEDERAL LAW CLERK Unavailable Mynor Broussard MD Unavailable Keisha Dotson MD Unavailable Galo Burrell MD Unavailable Diana Desir [facility] Unavailable Rain Galaviz PA-C Unavailable [phone] Summer Lara MD Unavailable Tavia Wyatt MD Unavailable Unavailable Reason for Visit Reason Onset Date Comments *-*INCOMING RECORDS*-* 07/15/2021 Encounter Details Date Type Department Care Team Description 07/15/2021 Telephone [facility] Margaret Ching, *-*INCOMING RECORDS*-* Clinic Dee ZABALA [address] [facility] [address] [place] [address] Social History [...] How often do you attend christian or adventist services? Never 09/22/2021 Do you belong to any clubs or organizations such as No 09/22/2021 christian groups, unions, fraSimple Mills or athletic groups, or school groups? How [...] in contact with Yes 07/15/2021 12:15 PM STUDENT ACCOUNTS MANAGER someone who was confirmed or suspected to have Coronavirus / COVID-19? documented as of this encounter Miscellaneous Notes Telephone Encounter - Margaret Rendon RN - 07/15/2021 8:20 AM CST Received ED visit notes dated 07/09 with labs and EKG. Copy to PAULA for appointment today. Originals sent to HIM to scan. Copy of labs sent to team entering outside labs VJ Kennedy ENT ACCOUNTS MANAGER documented in this encounter Plan of Treatment Upcoming Encounters Date Type Specialty Care Team Description 04/28/2022 Office Visit Family Practice Anthony Doe PAUcheC [address] [place], [place] [phone] (Wo rk) 05/03/2022 Office Visit Dermatology Neil Kent M D [address] [place], [place] [phone] (Wo rk) 05/05/2022 Office Visit Optometry Yeny David, OD [address] [facility] [address] [place], [place] [phone] (Wo rk) 05/11/2022 Virtual Visit Pharm D Diana Desir , [facility] [address] [place], [place] [address] (Wo rk) 05/14/2022 Office Visit Cardiology Livan Sharif MD [address], [facility] [address] [place], [place] [address] (Wo rk) 05/31/2022 [facility] Valery Veronica PAUcheC [address] [place] [address] (Wo rk) documented as of this encounter Visit Diagnoses Not on filedocumented in this encounter Additional Health Concerns Assessment Noted Time PHQ-9 Depression Total Score: 2 04/02/2021 10:19 AM CD T documented as of this encounter Care Teams Strategic Sourcing Specialist Relationship Specialty Start Date End Date Marija Edgar APRN PCP - General Nurse Practitioner 04/30/20 FEDERAL LAW CLERK [address] [place], [place] [phone] Lita Oseguera Personal Advocate & 02/28/20 Liaison (PAL) Marija Edgar APRN Assigned PCP 06/08/20 FEDERAL LAW CLERK [address] [place], [place] [phone] Mynor Broussard MD Assigned Surgical 06/01/20 11/28/21 [address] Provider [address] [place] [address] Keisha Dotson, Assigned Neuroscience 06/04/20 MD Provider [address] [place], [place] [address] Galo Burrell MD Assigned Heart and 10/05/20 04/02/22 [address] Vascular Provider [place], [place] [address] Diana Desir, [facility] Pharmacist Pharmacist 04/17/[address] [place] [address] Rain Galaviz Physician Studio Technician Video Operator Dermatology 04/28/21 ROVERTO Paredes [address] [facility] [address] [place], [place] [phone] Summer Lara MD Assigned OBGYN Provider 05/31/21 03/12/[address] [place], [place] [address] Tavia Wyatt MD MD Dermatology 07/14/21 documented as of this encounter
--- OUTSIDE RECORDS SUMMARY | 2022-04-28 01:11 | XMS_ITS | Encounter Summary ---
:2000 Author Organization [facility] Address [address] [place] [address] Care Team Providers Name Role Phone Lita Oseguera Unavailable Unavailable Marija Edgar APRN ELECTRICAL CAD TECHNICIAN Primary Care Provider [phone] Marija Edgar APRN ELECTRICAL CAD TECHNICIAN Unavailable Mynor Broussard MD Unavailable Keisha Dotson MD Unavailable Galo Burrell MD Unavailable Diana Desir [facility] Unavailable Rain Galaviz PA-C Unavailable [phone] Summer Lara MD Unavailable Tavia Wyatt MD Unavailable Unavailable Encounter Details Date Type Department Care Team Description 08/03/2021 Travel Social History Tobacco Use Types Packs/Day [...] often do you attend latter day or yarsani services? Never 09/22/2021 Do you [...] with No / Unsure 08/03/2021 2:24 PM DOCUMENTATION CONSULTANT someone who was confirmed or suspected to have Coronavirus / COVID-19? documented as of this encounter Plan of Treatment Upcoming Encounters Date Type Specialty Care Team Description 04/28/2022 Office Visit Family Practice Anthony Doe, [place] [address] [place], [place] [phone] (Wo rk) 05/03/2022 Office Visit Dermatology Neil Kent M D [address] [place], [place] [address] (Wo rk) 05/05/2022 Office Visit Optometry Yeny David, OD [address] [facility] [address] [place] [phone] ([facility] car[facility]son) 05/11/2022 Virtual Visit Pharm D Diana Desir , [facility] [address] [place], [place] [address] (Wo rk) 05/14/2022 Office Visit Cardiology Livan Sharif MD [address] [place] [address] (Wo rk) 05/31/2022 Office Visit Family Practice Valery Veronica , PA-C [address] [place], [place] [address] (Wo rk) documented as of this encounter Visit Diagnoses Not on filedocumented in this encounter Additional Health Concerns Infection Onset Date Last Indicated Resolved Time COVID-19 07/18/2021 07/18/2021 08/08/2021 11:39 PM DOCUMENTATION CONSULTANT Assessment Noted Time PHQ-9 Depression Total Score: 2 04/02/2021 10:19 AM CD T documented as of this encounter Care Teams Aircraft Engine Dismantler Relationship Specialty Start Date End Date Marija Edgar APRN PCP - General Nurse Practitioner 04/30/20 ELECTRICAL CAD TECHNICIAN [address] [place], [place] [phone] Lita Oseguera Personal Advocate & 02/28/20 Liaison (PAL) Marija Edgar APRN Assigned PCP 06/08/20 ELECTRICAL CAD TECHNICIAN [address] [place] [address] Mynor Broussard MD Assigned Surgical 06/01/20 11/28/21 [address] Provider [address] [place] [address] Keisha Dotson, Assigned Neuroscience 06/04/20 MD Provider [address] [place], [place] [address] Galo Burrell MD Assigned Heart and 10/05/20 04/02/22 [address] [facility] [address] Vascular Provider [place], [place] [address] Diana Desir, [facility] Pharmacist Pharmacist 04/17/21 [address] [place] [address] Rain Galaviz Physician Telephoto Engineer Dermatology 04/28/21 ROVERTO Paredes [address] [facility] [address] [place], [place] [phone] Summer Lara MD Assigned OBGYN Provider 05/31/21 03/12/[address] [place], [place] [address] Tavia Wyatt MD MD Dermatology 07/14/21 documented as of this encounter
--- OUTSIDE RECORDS SUMMARY | 2022-04-28 01:11 | XMS_ITS | Encounter Summary ---
:2000 Author Organization [facility] Address [address] [place] [address] Care Team Providers Name Role Phone Lita Oseguera Unavailable Unavailable Marija Edgar APRN DRAFTER CIVIL (CAD) Primary Care Provider [phone] Marija Edgar APRN DRAFTER CIVIL (CAD) Unavailable Mynor Broussard MD Unavailable Keisha Dotson MD Unavailable Galo Burrell MD Unavailable Diana Desir [facility] Unavailable Rain Galaviz PA-C Unavailable Summer Lara MD Unavailable Tavia Wyatt MD Unavailable Unavailable Reason for Visit Reason Onset Date Comments Call Back 07/14/2021 Psoriasis with bleed ing, failed topical. is Encounter Details Date Type Department Care Team Description 07/14/2021 Telephone [facility] None [place] l Back (Psoriasis with [place] bleeding, failed topical. [address] is ) [place], [place] [phone] Social History Tobacco Use Types [...] How often do you attend worship or caodaism services? Never 09/22/2021 Do you belong to any clubs or organizations such as No 09/22/2021 worship groups, unions, fraKadenze or athletic groups, or school groups? How [...] contact Unable to assess 07/14/2021 2:29 PM SAP BUSINESS ANALYST with someone who was confirmed or suspected to have Coronavirus / COVID-19? documented as of this encounter Miscellaneous Notes Telephone Encounter - Lauren Gan RN - 07/14/2021 3:16 PM CST Last Read in [employer] 07/14/2021 ??3:16 PM by Kim Johnson [employer] message sent: Unfortunately, we do not have any availability prior to your scheduled appointment on 08/11/2021. All three of our providers are booked out to almost October. I recommend following up with your primary care provider or urgent care if your symptoms worsen. I will go ahead and add you to our wait list though, if something opens we will give you a call. Renetta RN-BSN-N [facility] [phone] BUSINESS ANALYST Telephone Encounter - Keeley Pattie - 07/14/2021 2:36 PM CST [facility] Call [facility] Phone Message May a detailed message be left on voicemail: yes Reason for Call: Psoriasis with bleeding, failed topical. is - Pt was scheduled about 3 months ago and now has a sore throat and cancelled her Appt for 07/15 and there is no Appt's until September. Pt is bleeding and will need to be seen sooner. I did schedule her in 08/11 the soonest at all locations. This is out of her way and would like to stay with [place] location and sooner. Please call Pt back to discuss. Thanks Action Taken: Message routed to: [facility] Derm Travel Screening: Not Applicable BUSINESS ANALYST documented in this encounter Plan of Treatment Upcoming Encounters Date Type Specialty Care Team Description 04/28/2022 Office Visit Family Practice Anthony Doe PA-C [address] [place], [place] [phone] (Wo aldo) 05/03/2022 Office Visit Dermatology Neil Kent M D [address] [place], [place] [phone] (Wo rk) 05/05/2022 Office Visit Optometry Yeny David, OD [address] [facility] [phone] (Wo rk) 05/11/2022 Virtual Visit Pharm Diana Eckert , [facility] [address] [place], [place] [phone] (Wo rk) 05/14/2022 Office Visit Cardiology Livan Sharif MD [address] [place] [phone] (Wo rk) 05/31/2022 Office Visit Family Practice Valery Veronica PA-C [address] [place] [phone] (Wo rk) documented as of this encounter Visit Diagnoses Not on filedocumented in this encounter Additional Health Concerns Infection Onset Date Last Indicated Resolved Time Rule Out COVID-19 07/13/2021 07/13/2021 07/14/2021 3:0 4 PM SAP BUSINESS ANALYST Assessment Noted Time PHQ-9 Depression Total Score: 2 04/02/2021 10:19 AM CD T documented as of this encounter Care Teams Field Care Manager Relationship Specialty Start Date End Date Marija Edgar APRN PCP - General Nurse Practitioner 04/30/20 DRAFTER CIVIL (CAD) [address] [place] [address] Lita Oseguera Personal Advocate & 02/28/20 Liaison (PAL) Marija Edgar APRN Assigned PCP 06/08/20 DRAFTER CIVIL (CAD) [address] [place] [address] Mynor Broussard MD Assigned Surgical 06/01/20 11/28/21 [address] Provider [address] [place] [address] Trevor-Keisha Peter, Assigned Neuroscience 06/04/20 MD Provider [address] [place] [address] Galo Burrell MD Assigned Heart and 10/05/20 04/02/22 [address] Vascular Provider [place] [address] Diana Desir, [facility] Pharmacist Pharmacist 04/17/21 [address] [place], [place] [address] Rain Galaviz Physician Photonics Technician Dermatology 04/28/21 ROVERTO Paredes [address] [facility] [address] [place], [place] [phone] Summer Lara MD Assigned OBGYN Provider 05/31/21 03/12/[address] [place], [place] [phone] Tavia Wyatt MD MD Dermatology 07/14/21 documented as of this encounter
--- OUTSIDE RECORDS SUMMARY | 2022-04-28 01:11 | XMS_ITS | Encounter Summary ---
:2000 Author Organization [facility] Address [address] [place] [address] Care Team Providers Name Role Phone Lita Oseguera Unavailable Unavailable Marija Edgar FIELD CROP I FARMWORKER VIRTUAL REALITY SPECIALIST Primary Care Provider [phone] Marija Edgar APRN VIRTUAL REALITY SPECIALIST Unavailable Mynor Broussard MD Unavailable Keisha Dotson MD Unavailable Galo Burrell MD Unavailable Diana Desir [facility] Unavailable Rain Galaviz PA-C Unavailable Summer Lara MD Unavailable Tavia Wyatt MD Unavailable Unavailable Johnny Murillo MD Unavailable Erica Farrell FIELD CROP I FARMWORKER VIRTUAL REALITY SPECIALIST Unavailable [phone] Teresita Bean [facility] Unavailable [phone] Tavia Wyatt MD Unavailable Unavailable Diana Desir [facility] Unavailable Rich Barrett MD Unavailable Neil Kent MD Unavailable Roney Story DPM Unavailable BudErica FIELD CROP I FARMWORKER VIRTUAL REALITY SPECIALIST Unavailable [phone] ThangDiana [facility] Unavailable Encounter Details Date Type Department Care Team Description 07/31/2021 Documentation Only INTERFACED REPORT Unknown, Provider Social [...] How often do you attend buddhist or mosque services? Never 09/22/2021 Do you belong to [...] with No / Unsure 08/03/2021 2:24 PM CASE SUPERVISOR someone who was confirmed or suspected to have Coronavirus / COVID-19? documented as of this encounter Plan of Treatment Upcoming Encounters Date Type Specialty Care Team Description 04/28/2022 Office Visit Family Practice Anthony Doe PA-C [address] [place], [place] [phone] (Wo rk) 05/03/2022 Office Visit Dermatology Neil Kent M D [address] [place] [address] [phone] (Wo rk) 05/05/2022 Office Visit Optometry Yeny David, OD [address] [facility] [address] [place] [phone] (Wo rk) 05/11/2022 Virtual Visit Pharm D Diana Desir , [facility] [address] [place], [place] [address] (Wo rk) 05/14/2022 Office Visit Cardiology Livan Sharif MD [address] [facility] [address] [place], [place] [address] (Wo rk) 05/31/2022 Office Visit [facility] Valery Veronica PA-C 909 [place], [place] 264195 (Wo rk) documented as of this encounter Visit Diagnoses Not on filedocumented in this encounter Additional Health Concerns Infection Onset Date Last Indicated Resolved Time COVID-19 07/18/2021 07/18/2021 08/08/2021 11:39 PM CASE SUPERVISOR Rule Out COVID-19 12/18/2021 12/18/2021 12/19/2021 11: 34 AM CDT Rule Out COVID-19 02/24/2022 02/24/2022 02/25/2022 1:0 8 PM CDT Rule Out COVID-19 04/26/2022 04/26/2022 04/26/2022 6:4 7 AM CDT Assessment Noted Time PHQ-9 Depression Total Score: 2 04/02/2021 10:19 AM CD T documented as of this encounter Care Teams Sales Stock Associate Relationship Specialty Start Date End Date Marija Edgar, PCP - General Nurse Practitioner 04/30/20 FIELD CROP I FARMWORKER VIRTUAL REALITY SPECIALIST [address] [place] [address] Lita Oseguera Personal Advocate & 02/28/20 Liaison (PAL) Marija Edgar, Assigned PCP 06/08/20 FIELD CROP I FARMWORKER VIRTUAL REALITY SPECIALIST [address] [place], [place] [phone] Mynor Broussard MD Assigned Surgical 06/01/20 11/28/[address] Provider DANNI [address] [place], [place] [address] Mauri, Assigned Neuroscience 06/04/20 MD Keisha Provider 909 [place], [place] [address]155 Galo Burrell MD Assigned Heart and 10/05/20 04/02/22 [address] [facility] [address] [place] [address] Diana Desir, Pharmacist Pharmacist 04/17/21 [facility] [address] [place] [address] Rain Galaviz Physician Chief Pilot Dermatology 04/28/21 ROVERTO Paredes [address] [facility] [address] [facility] [place] [phone] Summer Lara MD Assigned OBGYN Provider 05/31/21 03/12/[address] [place], [place] [address] Tavia Wyatt MD Dermatology 07/14/21 Johnny Medrano Assigned Musculoskeletal 08/30/21 03/17/22 MD Ish Provider [address] [place], [place] [address] Erica Farrell Nurse Practitioner Cardiovascular Disease 09/09/21 ARLENE Guidry VIRTUAL REALITY SPECIALIST [address] [facility] [address] [place], [place] [address]145 Teresita Bean Pharmacist Pharmacist 09/24/21 09/29/21 [facility] [address] [facility] [address] [place] [phone] Tavia Wyatt, Assigned Surgical 11/29/21 MD Provider Diana Desir, Assigned MTM Pharmacist 01/02/22 03/26/22 [facility] 3033 [place], [place] [address] Rich Barrett Physician Ophthalmology 01/21/22 Gerson Reyes MD [address] [facility] [address] [place] [address] Neil Kent MD MD Dermatology 02/24/22 500 [place] [address] Roney Story, Assigned Musculoskeletal 03/20/22 DPM Provider [address] [facility] [address] [place], [place] [phone] Erica Farrell Assigned Heart and 04/03/22 ARLENE Guidry VIRTUAL REALITY SPECIALIST Vascular Provider 1700 [place] [address] Diana Desir, Assigned MTM Pharmacist 04/07/22 [facility] [address] [place] [address] documented as of this encounter
--- OUTSIDE RECORDS SUMMARY | 2022-04-28 01:11 | XMS_ITS | Encounter Summary ---
:2000 Author Organization [facility] [place] Address [address] [place] [address] Care Team Providers Name Role Phone Lita Oseguera Unavailable Unavailable Marija Edgar APRN GEOGRAPHIC ANALYST Primary Care Provider [phone] Marija Edgar APRN GEOGRAPHIC ANALYST Unavailable Mynor Broussard MD Unavailable Keisha Dotson MD Unavailable Galo Burrell MD Unavailable Diana Desir [facility] Unavailable Rain Galaviz PA-C Unavailable [phone] Summer Lara MD Unavailable Tavia Wyatt MD Unavailable Unavailable Encounter Details Date Type Department Care Team Description 07/18/2021 Travel Social History Tobacco Use Types Packs/Day [...] in contact with Yes 07/18/2021 1:53 PM SWING FRAME GRINDER OPERATOR someone who was confirmed or suspected to have Coronavirus / COVID-19? documented as of this encounter Plan of Treatment Upcoming Encounters Date Type Specialty Care Team Description 04/28/2022 Office Visit Family Practice Anthony Doe, ROVERTO [address] [place] [address] (Wo rk) 05/03/2022 Office Visit Dermatology Neil Kent M D 500 [place], [place] [address]805 (Wo rk) 05/05/2022 Office Visit Optometry Yeny David, OD [address] [facility] [place] [address] (Wo rk) 05/11/2022 Virtual Visit Pharm D Diana Desir , [facility] [address] [place] [address] (Wo rk) 05/14/2022 Office Visit Cardiology Livan Sharif MD [address], [address] [place] [address] (Wo rk) 05/31/2022 Office Visit Family Practice Valery Veronica , PA-C 909 [place], [place] [address] (Wo rk) documented as of this encounter Visit Diagnoses Not on filedocumented in this encounter Additional Health Concerns Infection Onset Date Last Indicated Resolved Time Rule Out COVID-19 07/18/2021 07/18/2021 07/20/2021 1:5 6 PM SWING FRAME GRINDER OPERATOR Assessment Noted Time PHQ-9 Depression Total Score: 2 04/02/2021 10:19 AM CD T documented as of this encounter Care Teams Automobile Drivers Relationship Specialty Start Date End Date Marija Edgar APRN PCP - General Nurse Practitioner 04/30/20 GEOGRAPHIC ANALYST [address] [place], [place] [phone] Lita Oseguera Personal Advocate & 02/28/20 Liaison (PAL) Marija Edgar APRN Assigned PCP 06/08/20 GEOGRAPHIC ANALYST [address] [place] [address] Mynor Broussard MD Assigned Surgical 06/01/20 11/28/21 [address] Provider 500 [place] [address]165 Keisha Dotson, Assigned Neuroscience 06/04/20 MD Provider 909 [place], [place] [address] Glao Burrell MD Assigned Heart and 10/05/20 04/02/22 [address] Vascular Provider [place], [place] [address] Diana Desir, [facility] Pharmacist Pharmacist 04/17/21 [address] [place] [address] Rain Galaviz Physician Skin Toggler Dermatology 04/28/21 ROVERTO Paredes [address] [facility] [address] [place], [place] [phone] Summer Lara MD Assigned OBGYN Provider 05/31/21 03/12/[address] [place], [place] [address] Tavia Wyatt MD MD Dermatology 07/14/21 documented as of this encounter
--- OUTSIDE RECORDS SUMMARY | 2022-04-28 01:11 | XMS_ITS | Encounter Summary ---
:2000 Author Organization [facility] Address [address] [place] [address] Care Team Providers Name Role Phone Lita Oseguera Unavailable Unavailable Marija Edgar APRN ESTATE PLANNING COUNSELOR Primary Care Provider [phone] Marija Edgar APRN ESTATE PLANNING COUNSELOR Unavailable Mynor Broussard MD Unavailable Keisha Dotson MD Unavailable Galo Burrell MD Unavailable Diana Desir [facility] Unavailable Rain Galaviz PA-C Unavailable [phone] Summer Lara MD Unavailable Tavia Wyatt MD Unavailable Unavailable Encounter Details Date Type Department Care Team Description 07/15/2021 Travel Social History Tobacco Use Types Packs/Day [...] How often do you attend latter-day or uatsdin services? Never 09/22/2021 Do you [...] in contact with Yes 07/15/2021 12:15 PM TOGGLE PRESS OPERATOR someone who was confirmed or suspected to have Coronavirus / COVID-19? documented as of this encounter Plan of Treatment Upcoming Encounters Date Type Specialty Care Team Description 04/28/2022 Office Visit Family Practice Anthony Doe, ROVERTO [address] [place] [address] (Wo rk) 05/03/2022 Office Visit Dermatology Neil Kent M D 500 [place], [place] 39[address]25 (Wo rk) 05/05/2022 Office Visit Optometry Yeny David, OD [address] [facility] [place] [address] (Wo rk) 05/11/2022 Virtual Visit Pharm D Diana Desir , [facility] [address] [place], [place] [address] (Wo rk) 05/14/2022 Office Visit Cardiology Livan Sharif MD [address], [address] [place], [place] [address] (Wo rk) 05/31/2022 Office Visit Family Practice Valery Veronica , PA-C 909 [place], [place] [address] (Wo rk) documented as of this encounter Visit Diagnoses Not on filedocumented in this encounter Additional Health Concerns Assessment Noted Time PHQ-9 Depression Total Score: 2 04/02/2021 10:19 AM CD T documented as of this encounter Care Teams Library Manager Relationship Specialty Start Date End Date Marija Edgar APRN PCP - General Nurse Practitioner 04/30/20 ESTATE PLANNING COUNSELOR [address] [place] [address] Lita Oseguera Personal Advocate & 02/28/20 Liaison (PAL) Marija Edgar APRN Assigned PCP 06/08/20 ESTATE PLANNING COUNSELOR [address] [place] [address] Mynor Broussard MD Assigned Surgical 06/01/20 11/28/21 [address] Provider 500 [place] [address] Trevor-Keisha Peter, Assigned Neuroscience 06/04/20 MD Provider 909 [place], [place] [address] Galo Burrell MD Assigned Heart and 10/05/20 04/02/22 [address] Vascular Provider [place], [place] [address] Diana Desir, [facility] Pharmacist Pharmacist 04/17/21 [address] [place], [place] [phone] Rain Galaviz Physician Packaging Specialist Dermatology 04/28/21 ROVERTO Paredes [address] [facility] [address] [address] [place], [place] [phone] Summer Lara MD Assigned OBGYN Provider 05/31/21 03/12/[address] [place], [place] [address] Tavia Wyatt MD MD Dermatology 07/14/21 documented as of this encounter
--- OUTSIDE RECORDS SUMMARY | 2022-04-28 01:11 | XMS_ITS | Encounter Summary ---
:2000 Author Organization [facility] Address [address] [place] [address] Care Team Providers Name Role Phone Lita Oseguera Unavailable Unavailable Marija Edgar APRN ELECTRICAL ASSEMBLER Primary Care Provider [phone] Marija Edgar APRN ELECTRICAL ASSEMBLER Unavailable Mynor Broussard MD Unavailable Keisha Dotson MD Unavailable Galo Burrell MD Unavailable Diana Desir [facility] Unavailable Rain Galaviz PA-C Unavailable [phone] Summer Lara MD Unavailable Tavia Wyatt MD Unavailable Unavailable Reason for Visit Reason Onset Date Comments pre SVT Ablation 07/30/2021 Encounter Details Date Type Department Care Team Description 07/30/2021 Telephone [facility] Tere Portillo RN pre SVT Ablation [address] [place] [address] Social History Tobacco Use Types [...] How often do you attend buddhist or yazidism services? Never 09/22/2021 Do you [...] in contact with Yes 07/18/2021 1:53 PM ENGAGEMENT DIRECTOR someone who was confirmed or suspected to have Coronavirus / COVID-19? documented as of this encounter Miscellaneous Notes Telephone Encounter - Joanne Portillo RN - 07/30/2021 10:03 AM CST 07/30/21 Pt called with sedation question for upcoming SVT Ablation. She stated when she had an endoscopy in the past she was given Fentanyl and Versed. She said this sis not work very well for her and she was too awake and could feel everything She wants to Make sure she is properly sedated for Ablation. Encouraged pt to discuss with anesthesia when they meet with her the am of procedure. Pt had other general questions that I answered to the best of my knowledge. Informed her she will receive a call from Dr Fairchild RN the day before the procedure to answer any last minute details. Pt voiced understanding and agreement with plan. [email or web address] 1005 am GEMENT DIRECTOR documented in this encounter Plan of Treatment Upcoming Encounters Date Type Specialty Care Team Description 04/28/2022 Office Visit Family Practice Anthony Doe, PAUcheC [address] [place], [place] [phone] (Wo rk) 05/03/2022 Office Visit Dermatology Neil Kent M D 500 [place], [place] [phone] (Wo rk) 05/05/2022 Office Visit Optometry Yeny David, OD [address] [facility] [address] [place] [phone] (Wo rk) 05/11/2022 Virtual Visit Pharm D Diana Desir , [facility] [address] [place], [place] [address]86 (Wo rk) 05/14/2022 Office Visit Cardiology Livan Sharif MD [address] [facility] [address] [place], [place] [address] (Wo rk) 05/31/2022 Office Visit Family Practice Valery Veronica PAUcheC 909 [place], [place] [address]755 (Wo rk) documented as of this encounter Visit Diagnoses Not on filedocumented in this encounter Additional Health Concerns Infection Onset Date Last Indicated Resolved Time COVID-19 07/18/2021 07/18/2021 08/08/2021 11:39 PM ENGAGEMENT DIRECTOR Assessment Noted Time PHQ-9 Depression Total Score: 2 04/02/2021 10:19 AM CD T documented as of this encounter Care Teams Vat Packer Relationship Specialty Start Date End Date Marija Edgar APRN PCP - General Nurse Practitioner 04/30/20 ELECTRICAL ASSEMBLER [address] [place], [place] [phone] Lita Oseguera Personal Advocate & 02/28/20 Liaison (PAL) Marija Edgar APRN Assigned PCP 06/08/20 ELECTRICAL ASSEMBLER [address] [place], [place] [phone] Mynor Broussard MD Assigned Surgical 06/01/20 11/28/[address] [place] Provider 500 [place], [place] [address] Keisha Dotson, Assigned Neuroscience 06/04/20 MD Provider 909 [place], [place] [address] Galo Burrell MD Assigned Heart and 10/05/20 04/02/[address] Vascular Provider [place], [place] [address] Diana Desir, [facility] Pharmacist Pharmacist 04/17/[address] [place], [place] [address] Rain Galaviz Physician Marketing Manager Dermatology 04/28/21 ROVERTO Paredes [address] [facility] [address] [place] [address] Summer Lara MD Assigned OBGYN Provider 05/31/21 03/12/[address] [place], [place] [address] Tavia Wyatt MD MD Dermatology 07/14/21 documented as of this encounter
[2022-04-28 01:12] LABS: C Reactive Protein* 0.7 mg/dL (0.5-1.0)
--- OUTSIDE RECORDS SUMMARY | 2022-04-28 01:12 | XMS_ITS | Encounter Summary ---
:2000 Author Organization [facility] Address [address] [facility] [place] [address] Care Team Providers Name Role Phone Lita Oseguera Unavailable Unavailable Marija Edgar APRN VOLLEYBALL COMMENTATOR Primary Care Provider [phone] Marija Edgar APRN VOLLEYBALL COMMENTATOR Unavailable Mynor Broussard MD Unavailable Keisha Dotson MD Unavailable Galo Burrell MD Unavailable Diana Desir [facility] Unavailable Rain Galaviz PA-C Unavailable [phone] Summer Lara MD Unavailable Summer Lara MD Unavailable Summer Lara MD Unavailable Encounter Details Date Type Department Care Team Description 05/18/2021 Medical Correspondence [facility] Non-Provider POST-MOOK Srvcs DEPRESSION SCALE [address] [place] [address] [place] [address] WELL-CHILD VISITS [phone] Social History Tobacco Use Types Packs/Day Years [...] week 09/22/2021 How often do you attend zoroastrianism or cheondoism services? Never 09/22/2021 Do you belong to any clubs or organizations such as No 09/22/2021 zoroastrianism groups, unions, fraternal or athletic groups, or [...] been in contact with No / Unsure 05/11/2021 4:19 PM CDT someone who was confirmed or suspected to have Coronavirus / COVID-19? documented as of this encounter Plan of Treatment Upcoming Encounters Date Type Specialty Care Team Description 04/28/2022 Office Visit Family Practice Anthony Doe PA-C [address] [place], [place] [phone] (Wo rk) 05/03/2022 Office Visit Dermatology Neil Kent M D 500 [place] [address] (Wo rk) 05/05/2022 Office Visit Optometry Yeny David, OD 3305 [facility] [place] [address] (Wo rk) 05/11/2022 Virtual Visit Pharm D Diana Desir , [facility] [address] [place], [place] [address] (Wo rk) 05/14/2022 Office Visit Cardiology Livan Sharif MD [address] [place] [address] (Wo rk) 05/31/2022 Office Visit Family Practice Valery Veronica , PA-C [address] [place] [phone] (Wo rk) documented as of this encounter Visit Diagnoses Not on filedocumented in this encounter Additional Health Concerns Assessment Noted Time PHQ-9 Depression Total Score: 2 04/02/2021 10:19 AM CD T documented as of this encounter Care Teams Prototyper Relationship Specialty Start Date End Date Marija Edgar APRN PCP - General Nurse Practitioner 04/30/20 VOLLEYBALL COMMENTATOR [address] [place] [address] Lita Oseguera Personal Advocate & 02/28/20 Liaison (PAL) Marija Edgar APRN Assigned PCP 06/08/20 VOLLEYBALL COMMENTATOR [address] [place], [place] [phone] Mynor Broussard MD Assigned Surgical 06/01/20 11/28/21 [address] Provider [address] [place] [address] Keisha Dotson, Assigned Neuroscience 06/04/20 MD Provider 909 [place] [address] Galo Burrell MD Assigned Heart and 10/05/20 04/02/22 6405 [facility] [address] [place] [address] Diana Desir, [facility] Pharmacist Pharmacist 04/17/21 [address] [place] [address] Rain Galaviz Physician Icebox Worker Dermatology 04/28/21 ROVERTO Paredes [address] [place] [address] [place] [address] Summer Lara MD Assigned OBGYN Provider 05/10/21 05/23/[address] [place] [address]657[address] Summer Lara MD Assigned OBGYN Provider 05/31/21 03/12/[address] [place] [address]19434 Summer Lara MD Assigned OBGYN Provider 05/24/21 05/30/[address] [place] [address] documented as of this encounter
--- OUTSIDE RECORDS SUMMARY | 2022-04-28 01:12 | XMS_ITS | Encounter Summary ---
:2000 Author Organization [place] Address [address] [place] [address] Care Team Providers Name Role Phone Lita Oseguera Unavailable Unavailable Marija Edgar APRN COLLARETTE SEPARATOR Primary Care Provider [phone] Marija Edgar APRN COLLARETTE SEPARATOR Unavailable Mynor Broussard MD Unavailable Keisha Dotson MD Unavailable Galo Burrell MD Unavailable Diana Desir [facility] Unavailable Rain Galaviz PA-C Unavailable [phone] Summer Lara MD Unavailable Encounter Details Date Type Department Care Team Description 07/13/2021 Travel Social History Tobacco Use Types Packs/Day [...] week 09/22/2021 How often do you attend orthodox or evangelical services? Never 09/22/2021 Do you belong to any clubs or organizations such as No 09/22/2021 orthodox groups, unions, fraternal or athletic groups, [...] have you been in contact with Yes 07/13/2021 10:14 AM SAW MAKER someone who was confirmed or suspected to have Coronavirus / COVID-19? documented as of this encounter Plan of Treatment Upcoming Encounters Date Type Specialty Care Team Description 04/28/2022 Office Visit Family Practice Anthony Doe, ROVERTO [address] [place], [place] [phone] (Wo rk) 05/03/2022 Office Visit Dermatology Neil Kent M D 500 [place] [address] (Wo rk) 05/05/2022 Office Visit Optometry Yeny David, OD 3[address] [facility] [place] [address] (Wo rk) 05/11/2022 Virtual Visit Pharm Diana Eckert , [facility] [address] [place] [address] (Wo rk) 05/14/2022 Office Visit Cardiology Livan Sharif MD [address] [place] [address] (Wo rk) 05/31/2022 Office Visit Family Practice Valery Veronica , PAUcheC 909 [place], [place] [address]125 (Wo rk) documented as of this encounter Visit Diagnoses Not on filedocumented in this encounter Additional Health Concerns Infection Onset Date Last Indicated Resolved Time Rule Out COVID-19 07/13/2021 07/13/2021 07/14/2021 3:0 4 PM SAW MAKER Assessment Noted Time PHQ-9 Depression Total Score: 2 04/02/2021 10:19 AM CD T documented as of this encounter Care Teams Catcher Filter Tip Relationship Specialty Start Date End Date Marija Edgar APRN PCP - General Nurse Practitioner 04/30/20 COLLARETTE SEPARATOR [address] [place] [address] Lita Oseguera Personal Advocate & 02/28/20 Liaison (PAL) Marija Edgar APRN Assigned PCP 06/08/20 COLLARETTE SEPARATOR [address] [place] [address] Mynor Broussard MD Assigned Surgical 06/01/20 11/28/21 [address] Provider 500 [place], [place] [address] Keisha Dotson, Assigned Neuroscience 06/04/20 MD Provider 909 [place] [address] Galo Burrell MD Assigned Heart and 10/05/20 04/02/22 [address] Vascular Provider [place] [address] Diana Desir, [facility] Pharmacist Pharmacist 04/17/21 [address] [place] [address] Rain Galaviz Physician Tar Chaser Dermatology 04/28/21 ROVERTO Paredes [address] [facility] [address] [place], [place] [phone] Summer Lara MD Assigned OBGYN Provider 05/31/21 03/12/22 [address] [facility] [place] [address] documented as of this encounter
--- OUTSIDE RECORDS SUMMARY | 2022-04-28 01:12 | XMS_ITS | Encounter Summary ---
:2000 Author Organization [place] Address [address] [place] [address]. [place] [address] Care Team Providers Name Role Phone Lita Oseguera Unavailable Unavailable Marija Edgar APRN RETAIL TEAM MEMBER Primary Care Provider [phone] Marija Edgar APRN RETAIL TEAM MEMBER Unavailable Mynor Broussard MD Unavailable Keisha Dotson MD Unavailable Galo Burrell MD Unavailable Diana Desir [facility] Unavailable Rain Galaviz PA-C Unavailable Summer Lara MD Unavailable Reason for Visit Reason Onset Date Comments Pt. Information/instruction 05/27/2021 appt Encounter Details Date Type Department Care Team Description 05/27/[address] [facility] Edgar[facility]AM [facility] Information/instruction [address] (appt ) [place] [address] [phone] Social History Tobacco Use Types Packs/Day Years [...] How often do you attend nondenominational or worship services? Never 09/22/2021 Do you [...] Notes Telephone Encounter - Libra Britt - 05/27/2021 1:27 PM CST appt made Libra Britt/Spraying Machine Operator OR FINANCIAL ANALYST Telephone Encounter - Marija Edgar APRN CNP - 05/27/2021 11:02 AM SENIOR FINANCIAL ANALYST OK for Tuesday Provider access spot. 40 min appointment, please. Marija Edgar APRN RETAIL TEAM MEMBER on 05/27/2021 at 11:02 AM OR FINANCIAL ANALYST Telephone Encounter - Natasha Luis RN - 05/27/2021 9:46 AM CST Pt calls, informs: ~cannot get in with derm until 07/15 ~new issue, AG has not had visit with AG yet ~now psoriasis spreading, wonders if can see AG next week Routed to AG, ok to use one of your same day spots? Pt willing to come Tuesday afternoon or Tuesday, if ok, route to TC to call pt to schedule Natasha Luis RN, BSN Message handled by CLINIC NURSE. OR FINANCIAL ANALYST documented in this encounter Plan of Treatment Upcoming Encounters Date Type Specialty Care Team Description 04/28/2022 Office Visit Family Practice Anthony Doe, PAUcheC [address] [place] [address] (Wo rk) 05/03/2022 Office Visit Dermatology Neil Kent M D 500 [place], [place] [phone] (Wo rk) 05/05/2022 Office Visit Optometry Yeny David, OD [address] [facility] [address] [place] [phone] (Wo rk) 05/11/2022 Virtual Visit Pharm D Diana Desir , [facility] [address] [place], [place] [phone] (Wo rk) 05/14/2022 Office Visit Cardiology Lvian Sharif MD [address] [facility] LIS[place] , [facility] [address] [place], [place] [address] (Wo rk) 05/31/2022 Office Visit Family Practice Valery Veronica PA-C [address] [place], [place] [address] (Wo rk) documented as of this encounter Visit Diagnoses Not on filedocumented in this encounter Additional Health Concerns Assessment Noted Time PHQ-9 Depression Total Score: 2 04/02/2021 10:19 AM CD T documented as of this encounter Care Teams Program Manufacturing Leader Relationship Specialty Start Date End Date Marija Edgar APRN PCP - General Nurse Practitioner 04/30/20 RETAIL TEAM MEMBER [address] [place], [place] [phone] Lita Oseguera Personal Advocate & 02/28/20 Liaison (PAL) Marija Edgar APRN Assigned PCP 06/08/20 RETAIL TEAM MEMBER [address] [place] [address] Mynor Broussard MD Assigned Surgical 06/01/20 11/28/21 [address] Provider [address] [place], [place] [address] Trevor-Keisha Peter, Assigned Neuroscience 06/04/20 MD Provider 9 [place] [address] Galo Burrell MD Assigned Heart and 10/05/20 04/02/22 [address] Vascular Provider [place], [place] [address] Diana Desir, [facility] Pharmacist Pharmacist 04/17/21 [address] [place] [address] Rain Galaviz Physician Evp Strategy Dermatology 04/28/21 ROVERTO Paredes [address] [facility] [address] [facility] [address] Summer Lara MD Assigned OBGYN Provider 05/24/21 05/30/[address] [place] [address] documented as of this encounter
--- OUTSIDE RECORDS SUMMARY | 2022-04-28 01:12 | XMS_ITS | Encounter Summary ---
:2000 Author Organization [place] Address [address] [place] [address]. [place] [address] Care Team Providers Name Role Phone Lita Oseguera Unavailable Unavailable Marija Edgar APRN CHEMICAL CHECKER Primary Care Provider Marija Edgar APRN CHEMICAL CHECKER Unavailable Mynor Broussard MD Unavailable Keisha Dotson MD Unavailable Galo Burrell MD Unavailable Diana Desir [facility] Unavailable Rain Galaviz PA-C Unavailable Summer Lara MD Unavailable Reason for Visit Reason Onset Date Comments Covid 19 Testing 06/23/2021 Encounter Details Date Type Department Care Team Description 06/23/2021 Lab M [facility] Urgent Rey Sheppard, Encounter for screening Care Paulino ACEVEDO for other viral diseases [address] [phone] [address] [address] [phone] [place], [place] [address] (Wo rk) Social History Tobacco Use Types [...] How often do you attend spiritism or orthodoxy services? Never 09/22/2021 Do you [...] been in contact with No / Unsure 06/23/2021 4:32 PM SUSTAINABILITY SPECIALIST someone who was confirmed or suspected to have Coronavirus / COVID-19? documented as of this encounter Progress Notes Anni Reyes RN - 06/23/2021 4:35 PM CST COVID-19 PCR test completed. Patient handout For Patients Who Have Been Tested for Covid-19 (Coronavirus) was given to the patient, which includes test result notification process. AINABILITY SPECIALIST documented in this encounter Plan of Treatment Upcoming Encounters Date Type Specialty Care Team Description 04/28/2022 Office Visit Family [facility] Anthony Doe PA-C [address] [place], [place] [phone] (Wo rk) 05/03/2022 Office Visit Dermatology Neil Kent M D [address] [place], [place] [phone] (Wo rk) 05/05/2022 Office Visit Optometry Yeny David, OD [address] [facility] [place] [address] (Wo rk) 05/11/2022 Virtual Visit Pharm D Diana Desir , [facility] [address] [place], [place] [address] (Wo rk) 05/14/2022 Office Visit Cardiology Livan Sharif MD [address] [facility] [address] [place], [place] [address] (Wo rk) 05/31/2022 Office Visit [facility] Valery Veronica PA-C [address] [place], [place] [address] (Wo rk) documented as of this encounter Procedures Procedure Name Priority Date/Time Associated Diagnosis Comme nts COVID-19 VIRUS Routine 06/23/2021 4:33 PM Encounter for Result s for this (CORONAVIRUS) BY SUSTAINABILITY SPECIALIST screening for other proc edure are in PCR viral diseases the results section. documented in this encounter Results Asymptomatic COVID-19 Virus (Coronavirus) by PCR Nose (06/23/2021 4:33 PM SUSTAINABILITY SPECIALIST) [facility] Method Time Signature SARS CoV2 PCR Negative Negative, 06/24/2021 [facility] Testing sent to 12:45 PM LABORATORY reference lab. SUSTAINABILITY SPECIALIST Results will be returned via unsolicited result Comment: NEGATIVE: SARS-CoV-2 (COVID-19) RNA not detected, presumed negative. Specimen Anatomical Collection Method Collection Time Receive d Time (Source) Location / / Volume Laterality Swab NASAL STRUCTURE / Non-blood 06/23/2021 4:33 PM 06/10 5:27 Unknown Collection / SUSTAINABILITY SPECIALIST PM SUSTAINABILITY SPECIALIST Unknown Narrative [facility] - 06/24/2021 12:45 PM SUSTAINABILITY SPECIALIST Testing was performed using the Aptima SARS-CoV-2 Assay on the HIGH MOBILITY Instrument System. Additional in formation about this Emergency Use Authorization (EUA) assay can be found via the Lab Guide. [...] COVID-19. This test was validated by the [facility] Infectious Diseases Diagnostic Laboratory. This lab oratory is certified under the Clinical Laboratory Improvement Amen dments of 1987 (CLIA-88) as qualified to perform high complexity lab oratory testing. Rey Sheppard MD LAB - MICRO GENERAL ORDERABL ES Performing Organization Address City/State/ZIP Code Phon e Number [facility] [place] [place] [address] Diag. Lab [address] [facility], Room [address] [facility] Infectious [place], [place] [phone] Diseases Diagnostic [phone], [facility] Lab (IDDL) [address] [facility], Room [address]297 documented in this encounter Visit Diagnoses Diagnosis Encounter for screening for other viral diseases documented in this encounter Additional Health Concerns Assessment Noted Time PHQ-9 Depression Total Score: 2 04/02/2021 10:19 AM CD T documented as of this encounter Care Teams Environmental Health And Safety Intern Relationship Specialty Start Date End Date Marija Edgar APRN PCP - General Nurse Practitioner 04/30/20 CHEMICAL CHECKER [address] [place] [address] Lita Oseguera Personal Advocate & 02/28/20 Liaison (PAL) Marija Edgar APRN Assigned PCP 06/08/20 CHEMICAL CHECKER [address] [place], [place] [phone] Mynor Broussard MD Assigned Surgical 06/01/20 11/28/[address] [place] Provider [address] [place], [place] [address] Keisha Dotson, Assigned Neuroscience 06/04/20 MD Provider [address] [place], [place] [address] Galo Burrell MD Assigned Heart and 10/05/20 04/02/[address] [place] [address] Diana Desir, [facility] Pharmacist Pharmacist 04/17/[address] [place] [address] Rain Galaviz Physician R D Manager Dermatology 04/28/21 ROVERTO Paredes [address] [facility] [address] [place] [address] Summer Lara MD Assigned OBGYN Provider 05/31/21 03/12/[address] [address] documented as of this encounter
--- OUTSIDE RECORDS SUMMARY | 2022-04-28 01:12 | XMS_ITS | Encounter Summary ---
:2000 Author Organization [place] Address [address] [place] [address] Care Team Providers Name Role Phone Lita Oseguera Unavailable Unavailable Marija Edgar APRN MILITARY EDUCATION COORDINATOR Primary Care Provider [phone] Marija Edgar APRN MILITARY EDUCATION COORDINATOR Unavailable Mynor Broussard MD Unavailable Keisha Dotson MD Unavailable Galo Burrell MD Unavailable Diana Desir [facility] Unavailable Rain Galaviz PA-C Unavailable [phone] Summer Lara MD Unavailable Encounter Details Date Type Department Care Team Description 06/23/2021 Travel Social History Tobacco Use Types Packs/Day [...] How often do you attend yarsani or orthodox services? Never 09/22/2021 Do you [...] with No / Unsure 06/23/2021 4:32 PM HEAT AND FROST INSULATOR HELPER someone who was confirmed or suspected to have Coronavirus / COVID-19? documented as of this encounter Plan of Treatment Upcoming Encounters Date Type Specialty Care Team Description 04/28/2022 Office Visit Family Practice Anthony Doe, ROVRETO [address] [place] [address] (Wo rk) 05/03/2022 Office Visit Dermatology Neil Kent M D 500 [place] [address] (Wo rk) 05/05/2022 Office Visit Optometry Yeny David, OD [address] [place] [address] (Wo aldo) 05/11/2022 Virtual Visit Pharm D Diana Desir , [facility] [address] [place] [address] (Wo rk) 05/14/2022 Office Visit Cardiology Livan Sharif MD [address] [place] [address] (Wo rk) 05/31/2022 Office Visit Family Practice Valery Veronica , PAUcheC [address] [place] [address] (Wo rk) documented as of this encounter Visit Diagnoses Not on filedocumented in this encounter Additional Health Concerns Assessment Noted Time PHQ-9 Depression Total Score: 2 04/02/2021 10:19 AM CD T documented as of this encounter Care Teams Padded Products Inspector Trimmer Relationship Specialty Start Date End Date Marija Edgar APRN PCP - General Nurse Practitioner 04/30/20 MILITARY EDUCATION COORDINATOR [address] [place] [address] Lita Oseguera Personal Advocate & 02/28/20 Liaison (PAL) Marija Edgar APRN Assigned PCP 06/08/20 MILITARY EDUCATION COORDINATOR [address] [place] [address] Mynor Broussard MD Assigned Surgical 06/01/20 11/28/21 [address] Provider [address] [place] [address] Trevor-Keisha Peter, Assigned Neuroscience 06/04/20 MD Provider 9 [place] [address] Galo Burrell MD Assigned Heart and 10/05/20 04/02/22 [address] Vascular Provider [place] [address] Diana Desir, [facility] Pharmacist Pharmacist 04/17/21 [address] [place], [place] [phone] Rain Galaviz Physician Band Ripsaw Operator Dermatology 04/28/21 ROVERTO Paredes [address] [place], [place] [phone] Summer Lara MD Assigned OBGYN Provider 05/31/21 03/12/[address] [place], [place] [phone] documented as of this encounter
--- OUTSIDE RECORDS SUMMARY | 2022-04-28 01:12 | XMS_ITS | Encounter Summary ---
:2000 Author Organization [facility] Address [address] [place] [address] Care Team Providers Name Role Phone Lita Oseguera Unavailable Unavailable Marija Edgar APRN UNCLAIMED PROPERTY OFFICER Primary Care Provider [phone] Marija Edgar APRN UNCLAIMED PROPERTY OFFICER Unavailable Mynor Broussard MD Unavailable Keisha Dotson MD Unavailable Galo Burrell MD Unavailable Diana Desir [facility] Unavailable Rain Galaviz PA-C Unavailable [phone] Summer Lara MD Unavailable Reason for Visit Auth/Cert Specialty Diagnoses / Procedures Referred By Contact Refer red To Contact Gastroenterology Diagnoses Black stool Gastroesophageal reflux disease with esophagitis without hemorrhage Black stool [K92.1] Gastroesophageal reflux disease with esophagitis without hemorrhage [K21.00] Rh Endoscopy Procedures HC UGI ENDOSCOPY DIAG W OR W/O BRUSH/WASH ESOPHAGOGASTRODUODENOSCOPY (EGD) (fv) [address] [place] [address] Phone: Fax: Referral ID Status Reason Start Date Expiration Date Visits Requ ested Visits Authorized [id number] 1 1 Encounter Details Date Type Department Care Team Description 06/26/2021 Surgery [facility] Valarie, ESOPHAGOGA STRODUODENOSCOPY (EGD) Endoscopy Rey uYn MD () [place] [facility] [address] [facility] GASTROINTESTI [facility] [id number] [phone] [place] [address] Surgery Details Date/Time Status Location OR Service Patient Class Case Case Trauma Class Type Case? 06/26/21 Posted [facility] GI GI A Gastroenterology Outpatient 9:30 AM Panel 1 Procedure LRB Anes Op Region Wound Class Commen ts ESOPHAGOGASTRODUODENOSCOPY N/A Conscious Mouth II-Clean (EGD) () Sedation Contaminated Surgeon Surgeon Role Service Panel Rey Sheppard MD Primary Gastroenterology 1 Special Needs Egd info s 06/09 jm; per pharmacy pt jocelyn uld pump and dump x1 post-procedure then can breastfeed after that, BR documented in this encounter Social History Tobacco [...] week 09/22/2021 How often do you attend roman catholic or rastafarian services? Never 09/22/2021 Do you belong to any clubs or organizations such as No 09/22/2021 roman catholic groups, unions, fraternal or athletic groups, [...] been in contact with No / Unsure 06/26/2021 8:28 AM TWISTER OPERATOR someone who was confirmed or suspected to have Coronavirus / COVID-19? documented as of this encounter Last Filed Vital Signs Vital Sign Reading Time Taken Comments Blood Pressure 147/91 06/26/2021 10:00 AM TWISTER OPERATOR Pulse - - Temperature - - Respiratory Rate 16 06/26/2021 10:00 AM TWISTER OPERATOR Oxygen Saturation 100% 06/26/2021 10:00 AM TWISTER OPERATOR Inhaled Oxygen Concentration - - Weight 90.7 kg (200 lb) 06/26/2021 9:12 AM TWISTER OPERATOR Height 167.6 cm (5' 6) 06/26/2021 9:12 AM TWISTER OPERATOR Body Mass Index 32.28 06/26/2021 9:12 AM TWISTER OPERATOR documented in this encounter Discharge Instructions Discharge InstructionsAmerica Ding RN - 06/26/2021 10:30 AM CST Images from the original note were not included. The patient has received a copy of the Provation report the doctor has written and discharge instructions have been discussed with the patient and responsible adult. All questions were addressed and answered prior to patient discharge. Tips to Control Acid Reflux To control acid reflux, you???ll need to make some basic diet and lifestyle changes. The simple steps outlined below may be all you???ll need to relieve discomfort. Watch What You Eat ??? Avoid fatty foods and spicy foods. ??? Eat fewer acidic foods, such as citrus and tomato-based foods. These can increase symptoms. ??? Limit drinking alcohol, caffeine, and fizzy beverages. All increase acid reflux. ??? Try limiting chocolate, peppermint, and spearmint. These can worsen acid reflux in some people. Watch When You Eat ??? Avoid lying down for 3 hours after eating. ??? Do not snack before going to bed. Raise Your Head Raising your head and upper body by 4 to 6 helps limit reflux when you???re lying down. Put blocksunder the head of the bed frame to raise it. ?? [id number] [facility], [address] [place] [address], [place] [address]. All rights reserved. This information is not intended as a substitute for professional medical care. Always follow your healthcare professional's instructions. TER OPERATOR documented in this encounter Medications at Time [...] daily Anxiety documented as of this encounter H&P Notes Rey Sheppard MD - 06/26/2021 9:43 AM CST Pre-Endoscopy History and Physical Kim Johnson Date of : 2000 Age: [age] year old Date of Procedure: 06/26/2021 Primary care provider: Marija Edgar Type of Endoscopy: Gastroscopy with possible biopsy, possible dilation Reason for Procedure: reflux Type of Anesthesia Anticipated: Conscious Sedation HPI: Kim is a 21 year old female who will be undergoing the above procedure. A history and physical has been performed. The patient's medications and allergies have been reviewed. The risks and benefits of the procedure and the sedation options and risks were discussed with thepatient. All questions were answered and informed consent was obtained. She denies a personal or family history of anesthesia complications or bleeding disorders. Patient Active Problem List Diagnosis ??? Seizure [...] Past Surgical History: Procedure Laterality Date ??? GENITOURINARY SURGERY kidney Social History Tobacco Use ??? Smoking status: Former Smoker Packs/day: 1.00 Types: Other Quit date: 12/07/2019 Years since quittin.5 ??? Smokeless tobacco: Never Used Substance Use Topics ??? Alcohol use: Not Currently Family History Problem Relation Age of [place] ??? Heart Disease Maternal Grandfather ??? Brain Tumor Sister Prior to Admission medications Medication Sig Start Date End Date Taking? Authorizing Provider levETIRAcetam (KEPPRA) 500 MG tablet Take 1 tablet (500 mg) by mouth daily 02/24/21 Yes Keisha Dotson MD omeprazole (PRILOSEC) [address] capsule Take 1 capsule (40 mg) by mouth daily 03/03/21 Yes Marija Edgar APRN UNCLAIMED PROPERTY OFFICER Vit-Fe Fumarate-FA ( MULTIVITAMIN W/IRON) 27-0.8 MG tablet Take 1 tablet by mouth daily 06/04/20 Yes Marija Edgar APRN CNP sertraline (ZOLOFT) 100 MG tablet Take 2 tablets (200 mg) by mouth daily 05/29/21 Yes Marija Edgar APRN CNP No Known Allergies REVIEW OF SYSTEMS: 5 point ROS negative except as noted above in HPI, including Gen., Resp., CV, GI & system review. PHYSICAL EXAM: Ht 1.676 m (5' 6) Wt 90.7 kg (200 lb) BMI 32.28 kg/m?? Estimated body mass index is 32.28 kg/m?? as calculated from the following: Height as of this encounter: 1.676 m (5' 6). Weight as of this encounter: 90.7 kg (200 lb). GENERAL APPEARANCE: alert, and oriented MENTAL STATUS: alert AIRWAY EXAM: Mallampatti Class I (visualization of the soft palate, fauces, uvula, anterior and posterior pillars) RESP: lungs clear to auscultation - no rales, rhonchi or wheezes CV: regular rates and rhythm DIAGNOSTICS: Not indicated IMPRESSION ASA Class 2 - Mild systemic disease PLAN: Plan for Gastroscopy with possible biopsy, possible dilation. We discussed the risks, benefits and alternatives and the patient wished to proceed. The above has been forwarded to the consulting provider. Signed Electronically by: Rey Sheppard MD June 26, 2021 TER OPERATOR documented in this encounter Plan of Treatment Upcoming Encounters Date Type Specialty Care Team Description 04/28/2022 Office Visit Family Practice Anthony Doe PA-C [address] [place] [address] (Wo rk) 05/03/2022 Office Visit Dermatology Neil Kent M D [address] [place] [address] (Wo aldo) 05/05/2022 Office Visit Optometry Yeny David, OD [address] [place] [id number] (Wo rk) 05/11/2022 Virtual Visit Pharm D Diana Desir , [facility] [address] [place] [address] (Jefferson rk) 05/14/2022 Office Visit Cardiology Livan Sharif MD [address], [facility] [address] [place] [address] (Jefferson rk) 05/31/2022 Office Visit Family Practice Valery Veronica , [address] [place] [address] (Jefferson rk) documented as of this encounter Procedures Procedure Name Priority Date/Time Associated Comments Diagnosis UPPER GI ENDOSCOPY Routine 06/26/2021 Results f or 9:57 AM TWISTER OPERATOR this procedure are in the results section. ESOPHAGOGASTRODUODENOSCOPY (EGD) 06/26/2021 Black stool 9:47 AM TWISTER OPERATOR Gastroesophageal reflux disease with esophagitis without hemorrhage Special Needs Egd info s 06/09 jm; per pha rmacy pt should pump and dump x1 post-procedure then can breastfeed after that, B R documented in this encounter Results UPPER GI ENDOSCOPY (06/26/2021 9:57 AM TWISTER OPERATOR) Component Value Ref Test Analysis Performed At [facility] Range Method Time Signature Upper GI [facility] RADIOLOGY Endoscopy RESULTS Patient Name: Kim Johnson ? Procedure Da te: 06/26/2021 9:57 AM ? Accou nt Number: [id number] Date of : 2000 ? Admit Type: Outp atient Age: 21 ? Gender: Female Attending MD: Rey art MD ?? Total Sedation Time: 5_minutes continuous bedside 1:1 Instrument Name: 207- Gastroscope ? Procedure: ?Upper GI endoscopy Indications: ?Esophageal reflux Providers: ?Rey Sheppard MD (Doc [facility]) Referring MD: ? Medicines: ?Midazolam 2 mg IV, Fentanyl 100 micrograms IV, ?Benzocaine spray Complications: ?No immediate complications. Procedure: ?Pre-Anesthesia Assessment: ?- Prior to the procedure, a History and Physical ?was performed, and patient medications and ?allergies were reviewed. The patient is competent. ?The risks and benefits of the procedure and the ?sedation options and risks were discussed with the ?patient. All questions were answered and informed ?consent was obtained. Patient identification and ?proposed procedure were verified by the physician. ?Mental Status Examination: alert and oriented. ?Airway Examination: normal oropharyngeal airway and ?neck mobility. Respiratory Examination: clear to ?auscultation. CV Examination: normal. Prophylactic ?Antibiotics: The patient does not require ?prophylactic antibiotics. Prior Anticoagulants: The ?patient has taken no anticoagulant or antiplatelet ?agents. ASA Grade Assessment: II - A patient with ?mild systemic disease. After reviewing the risks ?a nd benefits, the patient was deemed in ?satisfactory condition to undergo the procedure. ?The anesthesia plan was to use moderate sedation / ?analgesia (conscious sedation). Immediately prior ?to administration of medications, the patient was ?re-assessed for adequacy to receive sedatives. The ?heart rate, respiratory rate, oxygen saturations, ?blood pressure, adequacy of pulmonary ventilation, ?and response to care were monitored throughout the ?procedure. The physical status of the patient was ?re-assessed after the procedure. ?After obtaining informed consent, the endoscope was ?passed under direct vision. Throughout the ?procedure, the patient's blood pressure, pulse, and ?oxygen saturations were monitored continuously. The ?Olympus Gastroscope, Model # GIF-H190, Endora # ?207, SN # [id number] was introduced through the mouth, ?and advanced to the second part of duodenum. The ?upper GI endoscopy was accomplished without ?difficulty. The patient tolerated the procedure ?well. ? Findings: ? The esophagus was normal. ? The stomach was normal. ? The examined duodenum was normal. ? Impression: ? - Normal esophagus. ?- Normal stomach. ?- Normal examined yin willis. ?- No specimens collec maddie. Recommendation: ? - Continue present medication s. ?- Follow an antireflux regimen indefinitely. ? Procedure Code(s): ? --- Professional --- ? 50854, Esophagogastroduodenoscopy, flexible, transora l; diagnostic, ? including collection of specimen(s) by brushing or wa shing, when ? performed (separate procedure) Diagnosis Code(s): ? --- Professional --- ? K21.9, Gastro-esophageal reflux disease without esoph agitis CPT copyright 2020 [employer]. All rights reserved. The codes documented in this report are prelimin richard and upon child custody evaluator review may be revised to meet current compliance requirements. Electronically signed by Rey Sheppard MD Rey Sheppard MD 06/26/2021 10:11:56 AM I was physically present for the entire viewing portion of t he exam. Rey Sheppard MD Number of Addenda: 0 Note Initiated On: 06/26/2021 9:57 AM MRN: ?[id number] Procedure Date: ? 06/26/2021 9:57:47 AM Total Procedure Duration: 0 hours 2 minutes 22 seconds Estimated Blood Loss: ? Scope In: 10:01:58 AM Scope Out: 10:04:20 AM Specimen (Source) Anatomical Collection Method Collection Time Re ceived Time Location / / Volume Laterality 06/26/2021 9:57 AM TWISTER OPERATOR Rey Sheppard MD PROCEDURES Performing Organization Address City/State/ZIP Code Phon e Number RADIOLOGY RESULTS documented in this encounter Visit Diagnoses Diagnosis Black stool Nonspecific abnormal finding in stool co ntents Gastroesophageal reflux disease with eso phagitis without hemorrhage documented in this encounter Administered Medications Inactive Administered Medications - up to 3 most recent administrations Medication Order MAR Action Action Date Dose Rate Site 0.9% sodium chloride BOLUS Intravenous, 500 mL, ONCE PRN, at 500 mL/hr, Administe r over 1 Hours, other, hypotension, Starting on Tue06/26/21 at 0942, For 1 d ose, Intra-procedure atropine injection 0.4 mg 0.4 mg, Intravenous, ONCE PRN, Bradycard ia, Starting on Tue06/26/21 at 0942, For 1 dose, Intra-procedure benzocaine 20% (HURRICAINE/TOPEX) 20 % s pray 0.5-2 mL 0.5-2 mL (1-4 spray), Mouth/Throat, ONCE PRN, moderate pain, Starting on Tue06/26/21 at 0942, For 1 dose, [place] throat with 1-4 sp rays 5 minutes prior to procedure., Intra-procedure benzocaine 20% (HURRICAINE/TOPEX) 20 % Given 06/26/2021 10:00 AM TWISTER OPERATOR 0.5 mLs spray Mouth/Throat, PRN, Starting on Tue06/26/21 at 1000 EPINEPHrine (Anaphylaxis) (ADRENALIN) in jection (vial) 0.1 mg 0.1 mg, Submucosal, ONCE PRN, bleeding, Starting on Fr i 06/26/21 at 0942, For 1 dose, Via sclerotherapy injection needle. Not for dire ct undiluted intravenous injection (1mg/ml = 1:1000). Protect from light., Intr a-procedure fentaNYL (PF) (SUBLIMAZE) injection 25-5 0 mcg 25-50 mcg, Intravenous, EVERY 2 MIN PRN, moderate to s evere pain, when verbally ordered by the prescriber during the procedure, Admini ster over 1-2 Minutes, Starting on Tue06/26/21 at 1000, For 24 hours, Cautio n: may have synergistic effect when used with midazolam (VERSED) . If inadequate response, may repeat up to maximum of 300 mcg total dose in 60 minutes. Doses can be exceeded under direct oversight of patient by provider., Intra-procedure fentaNYL (PF) (SUBLIMAZE) injection Given 06/26/2021 9:59 AM TWISTER OPERATOR 100 mcg Intravenous, PRN, Administer over 3-5 Minutes, Starting on Tue06/26/21 at 0959 flumazenil (ROMAZICON) injection 0.2 mg 0.2 mg, Intravenous, EVERY 1 MIN PRN, be nzodiazepine reversal, over sedation, when verbally ordered by the prescriber during the procedur e , Administer over 1 Minutes, Starting on Tue06/26/21 at 094 2, For 48 hours, Give over 15 seconds. If inadequate response after 45 seconds, ma y repeat up to a MAX total dose of 1 mg). Continue monitoring until discharge criteria are met f or a minimum of 2 hours. Irritant. Use with caution in patients o n benzodiazepine therapy., Intra-procedure flumazenil (ROMAZICON) injection 0.2 mg 0.2 mg, Intravenous, EVERY 1 MIN PRN, benzodiazepine r eversal, over sedation, Administer over 1 Minutes, Starting on Tue06/26/21 at 1028, For 12 hours, Give over 15 seconds. If inadequate response after 45 seconds, may repeat up to a MAX total dose of 1 mg. Continue monitoring until discharg e criteria are met for a minimum of 2 hours Irritant. Use with caution in patie nts on benzodiazepine therapy. glucagon injection 0.5 mg 0.5 mg, Intravenous, ONCE PRN, other, gi motility, Sta rting on Tue06/26/21 at 0942, For 1 dose, Intra-procedure lidocaine (LMX4) kit Topical, EVERY 1 HOUR PRN, pain, with VA D insertion, Starting on Tue06/26/21 at 1028, Apply at least 30 minutes prior to VAD insertion in divided doses as needed for size of site for insertion. MAX Dose: 2.5 g (?? of 5 g tube) Do NOT give if patient has a history of allergy to any local anesthetic or any david product. Do NOT use both lidocaine intradermal/subcu taneous injection and the lidocaine cream on the same site., Pre-procedure lidocaine 1 % 0.1-1 mL 0.1-1 mL, Other, EVERY 1 HOUR PRN, mild pain with VAD insertion, Starting on Tue06/26/21 at 1028, MAX dose 1 mL subcutan eous OR intradermal along the side of the vein in divided doses as needed for VAD insertion. Do NOT give if patient has a history of allergy to any local anesthet ic or any david product. Do NOT use both lidocaine intradermal/subcutaneous injec tion and the lidocaine cream on the same site., Pre-procedure midazolam (VERSED) injection 1 mg 1 mg, Intravenous, Administer over 1-2 Minutes, EVERY 2 MIN PRN, sedation, when verbally ordered by the prescriber rupa alves the procedure, Starting on Tue06/26/21 at 1000, For 24 hours, Caution: when use d with opioids, may need lower doses. If inadequate response, may repeat until de sired sedative response (Maximum of 8 mg total dose). Doses can be exceeded under direct oversight of patient by provider. This drug may cause significant respirat ory depression. Monitor respiratory status and vital signs carefully for 1 hour after each dose., Intra-procedure midazolam (VERSED) injection Given 06/26/2021 9:59 AM TWISTER OPERATOR 2 mg Intravenous, Administer over 2 Minutes, PRN, Starting on Tue06/26/21 at 0959 naloxone (NARCAN) injection 0.2 mg 0.2 mg, Intravenous, EVERY 2 MIN PRN, op ioid reversal, Starting on Tue06/26/21 at 1028, Administer intravenous route when available and notify [...] 2 MIN PRN, opioid reversal, Starting on Tue06/26/21 at 1028, Administer intramuscular if an intravenous ro tanana is not available and notify provider when administered. For unintended ramiro tion or respiratory depression if all of the below criteria are met: ~ respiratory rate LESS than or EQUAL to 8. ~SaO2 less than 92% and or/end-tidal CO2 i s greater than 50. ~ the patient is receiving an opioid, has unin tended sedations assessed as RASS (-3), and is currently not on mechanical ventilati on. RASS scale moderate (-3) is movement or [...] MIN PRN, op ioid reversal, Starting on Tue06/26/21 at 1028, Administer intravenous route when available and notify [...] 2 MIN PRN, opioid reversal, Starting on Tue06/26/21 at 1028, Administer intramuscular if an intravenous ro tanana is not available and notify provider when administered. For unintended ramiro tion or respiratory depression if all of the below criteria are met: ~ respiratory rate LESS than or EQUAL to 8. ~ SaO2 less than 92% and or/end-tidal CO2 is greater than 50. ~ the patient is receiving an opioid, has unin tended sedation assessed as RASS (-4) or (-5) and patient is currently not on mechanical ventil ation. RASS scale (-4) is deep sedation with no response to voice but movement o r eye opening to physical stimulation. RASS scale [...] have not improved after 4 naloxone doses. ondansetron (ZOFRAN) injection 4 mg 4 mg, Intravenous, ONCE PRN, nausea, vomiting, Adminis ter over 2-5 Minutes, Starting on Tue06/26/21 at 1028, For 1 dose, Give in ENDO pre procedure prep area. Irritant., Pre-procedure ondansetron (ZOFRAN) injection 4 mg 4 mg, Intravenous, EVERY 6 HOURS PRN, nausea, vomiting , Administer over 2-5 Minutes, Starting on Tue06/26/21 at 102 8, This is Step 1 of nausea and vomiting management. If nausea not resolved in 15 minutes, go t o Step 2 prochlorperazine (COMPAZINE). Irritant. ondansetron (ZOFRAN-ODT) ODT tab 4 mg 4 mg, Oral, EVERY 6 HOURS PRN, nausea, v omiting, Starting on Tue06/26/21 at 1028, This is Step 1 of nausea and vomiting management. If n ausea not resolved in 15 minutes, go to Step 2 prochlorperazine (COMPAZINE). Do not push through foil backing. Peel back foil and gently remove. Place on to ngue immediately. Administration with liquid unnecessary W ith dry hands, peel back foil backing and gently remove tablet. Do not push oral d isintegrating tablet through foil backing. Administer immediately on tongue and oral disintegrati ng tablet dissolves in seconds, then swallow with saliva. Liquid not required . prochlorperazine (COMPAZINE) injection 1 0 mg 10 mg, Intravenous, EVERY 6 HOURS PRN, nausea, vomitin g, Administer over 1-2 Minutes, Starting on Tue06/26/21 at 102 8, This is Step 2 of nausea and vomiting management. If nausea not resolved in 15-30 minutes, N otify provider. prochlorperazine (COMPAZINE) tablet 10 m g 10 mg, Oral, EVERY 6 HOURS PRN, nausea, vomiting, Starting on Tue06/26/21 at 1028, This is Step 2 of nausea and vomiting ma nagement. If nausea not resolved in 15-30 minutes, Notify provider. simethicone (MYLICON) suspension 133 mg 133 mg, Oral, ONCE PRN, other, gas bubbl es, Starting on Tue06/26/21 at 0942, For 1 dose, Give via endoscope, Intra-procedure sodium chloride (PF) 0.9% PF flush 3 mL 3 mL, Intracatheter, EVERY 8 HOURS, First dose on Tue06/26/21 at 1030, to lock peripheral IV dormant line, Pre-procedure sodium chloride (PF) 0.9% PF flush 3 mL 3 mL, Intracatheter, EVERY 1 MIN PRN, li ne flush, other, to ensure patency or to lock dormant line, Starting on Tue06/26/21 at 1028, P re-procedure sodium chloride (PF) 0.9% PF flush 3 mL 3 mL, Intravenous, EVERY 1 HOUR PRN, jose e flush, Starting on Tue06/26/21 at 0942, Indications: for Peripheral IV flush post IV meds, Int ra-procedure sodium chloride (PF) 0.9% PF flush 3 mL 3 mL, Intravenous, EVERY 8 HOURS, First dose on Tue06/26/21 at 1000, And every 1 hour PRN, to lock peripheral IV dormant line, Intra-pr ocedure documented in this encounter Active and Recently Administered Medications Times are shown in TWISTER OPERATOR. Scheduled Medication Order 06/24/2021 06/25/202106/26/2021 fentaNYL (PF) (SUBLIMAZE) injection 50-100 mcg 1000 (Canceled Entry - Provider: Orders Generic Provider - Comment: Automatically canceled at discontinue of medication order) 50-100 mcg, Intravenous, ONCE WITHIN 24 HRS, Administer over 1-2 Minutes, On Tue06/26/21 at 1000, For 1 dose, Caution: may have synergistic effect when used with midazolam (VERSED). If inadequate respo nse may repeat 25-50 mcg IV slowly Q 2 m inutes PRN pain (Maximum of 300 mcg total dose in 60 minutes.) Doses can be exceeded under direct oversight of patient by provider., Intra-procedure midazolam (VERSED) injection 1-2 mg 1000 (Canceled Entry - Provider: Orders Generic Provider - Comment: Automatically canceled at discontinue of medication order) 1-2 mg, Intravenous, Administer over 1-2 Minutes, ONCE WITHIN 24 HRS, On Tue06/26/21 at 1000, For 1 dose, Caution: when used with opioids, may need lower doses. If inadequate response may repeat 1 mg I V slowly Q 2 minutes PRN sedation until desired response (Maximum of 8 mg total dose.) Doses can be exceeded under direct oversight of patient by provider. This drug may cause significant respiratory de pression. Monitor respiratory status and vital signs carefully for 1 hour after each dose., Intra-procedure sodium chloride (PF) 0.9% PF flush 3 mL 1030 (Canceled Entry - Provider: Orders Generic Provider - Comment: Automatically canceled at discontinue of medication order) 3 mL, Intracatheter, EVERY 8 HOURS, Firs t dose on Tue06/26/21 at 1030, to lock peripheral IV dormant line, Pre-procedure sodium chloride (PF) 0.9% PF flush 3 mL 1000 (Canceled Entry - Provider: Orders Generic Provider - Comment: Automatically canceled at discontinue of medication order) 3 mL, Intravenous, EVERY 8 HOURS, First dose on Tue06/26/21 at 1000, And every 1 hour PRN, to lock peripheral IV dormant line, Intra-procedure PRN Medication Order 06/24/2021 06/25/2021 06/26/2021 0.9% sodium chloride BOLUS Intravenous, 500 mL, ONCE PRN, at 500 mL /hr, Administer over 1 Hours, other, hypotension, Starting on Tue06/26/21 at 0942, For 1 dose, Intra-procedure atropine injection 0.4 mg 0.4 mg, Intravenous, ONCE PRN, Bradycard ia, Starting on Tue06/26/21 at 0942, For 1 dose, Intra-procedure benzocaine 20% (HURRICAINE/TOPEX) 20 % spray 0.5-2 mL 0.5-2 mL (1-4 spray), Mouth/Throat, ONCE PRN, moderate pain, Starting on Tue06/26/21 at 0942, For 1 dose, [place] throat with 1-4 sprays 5 minutes prior to procedure., Intra-procedure benzocaine 20% (HURRICAINE/TOPEX) 20 % spray (COMPLETED) 1000 (Given - Provider: Rey Sheppard MD) Mouth/Throat, PRN, Starting on Tue06/26/21 at 1000 EPINEPHrine (Anaphylaxis) (ADRENALIN) injection (vial) 0.1 mg 0.1 mg, Submucosal, ONCE PRN, bleeding, Starting on Tue06/26/21 at 0942, For 1 dose, Via sclerotherapy injection needle. Not for direct undiluted intravenous injection (1mg/ml = 1:1000). Protect from light., Intra-procedure fentaNYL (PF) (SUBLIMAZE) injection 25-50 mcg 25-50 mcg, Intravenous, EVERY 2 MIN PRN, moderate to severe pain, when verbally ordered by the prescriber during the procedure, Administer over 1-2 Minutes, Starting on Tue06/26/21 at 1000, For 24 hour s, Caution: may have synergistic effect when used with midazolam (VERSED) . If inadequate response, may repeat up to maximum of 300 mcg total dose in 60 minutes. Doses can be exceeded under direct oversight of patient by provider., Intra-procedure fentaNYL (PF) (SUBLIMAZE) injection (COMPLETED) 0959 (Given - Provider: Leann Serrano RN) Intravenous, PRN, Administer over 3-5 Minutes, Startin g on Tue06/26/21 at 0959 flumazenil (ROMAZICON) injection 0.2 mg 0.2 mg, Intravenous, EVERY 1 MIN PRN, be nzodiazepine reversal, over sedation, when verbally ordered by the prescriber during the procedure , Administer over 1 Minutes, Starting on Tue06/26/21 at 0942, For 48 hours, Give over 15 seconds. If i nadequate response after 45 seconds, may repeat up to a MAX total dose of 1 mg). Continue monitoring until discharge criteria are met for a minimum of 2 hours. Ir ritant. Use with caution in patients on benzodiazepine therapy., Intra-procedure flumazenil (ROMAZICON) injection 0.2 mg 0.2 mg, Intravenous, EVERY 1 MIN PRN, be nzodiazepine reversal, over sedation, Administer over 1 Minutes, Starting on Tue06/26/21 at 1028, For 12 hours, Give over 15 seconds. If inadequate response afte r 45 seconds, may repeat up to a MAX tot al dose of 1 mg. Continue monitoring until discharge criteria are met for a minimum of 2 hours Irritant. Use with caution in patients on benzodiazepine therapy. glucagon injection 0.5 mg 0.5 mg, Intravenous, ONCE PRN, other, gi motility, Starting on Tue06/26/21 at 0942, For 1 dose, Intra-procedure lidocaine (LMX4) kit Topical, EVERY 1 HOUR PRN, pain, with VA D insertion, Starting on Tue06/26/21 at 1028, Apply at least 30 minutes prior to VAD insertion in divided doses as needed for size of site for insertion. MAX Dos e: 2.5 g (?? of 5 g tube) Do NOT give if patient has a history of allergy to any local anesthetic or any david product. Do NOT use both lidocaine intradermal/subcutaneous injection and the lidocaine cream on the same site., Pre-procedure lidocaine 1 % 0.1-1 mL 0.1-1 mL, Other, EVERY 1 HOUR PRN, mild pain with VAD insertion, Starting on Tue06/26/21 at 1028, MAX dose 1 mL subcutaneous OR intradermal along the side of the vein in divided doses as needed for VAD insertion. Do NOT give if patient has a history of allergy to any local anesthetic or any david product. Do NOT use both lidocaine intradermal/subcutaneous injection and the lidocaine cream on the same site., Pre-procedure midazolam (VERSED) injection 1 mg 1 mg, Intravenous, Administer over 1-2 M inutes, EVERY 2 MIN PRN, sedation, when verbally ordered by the prescriber during the procedure, Starting on Tue06/26/21 at 1000, For 24 hours, Caution: when use d with opioids, may need lower doses. If inadequate response, may repeat until desired sedative response (Maximum of 8 mg total dose). Doses can be exceeded under direct oversight of patient by provider . This drug may cause significant respir atory depression. Monitor respiratory status and vital signs carefully for 1 hour after each dose., Intra-procedure midazolam (VERSED) injection (COMPLETED) 0959 (Given - Provider: Leann Serrano RN) Intravenous, Administer over 2 Minutes, PRN, Starting on Tue at 0959 naloxone (NARCAN) injection 0.2 mg 0.2 mg, Intravenous, EVERY 2 MIN PRN, op ioid reversal, Starting on Tue06/26/21 at 1028, Administer intravenous route when available and notify provider when administered. For unintended sedation or res piratory depression if all of the below criteria are met: ~ respiratory rate LESS than or EQUAL to 8. ~SaO2 less than 92% and or/end-tidal CO2 is greater than 50. ~ the patient is receiving an opioid, h as unintended sedations assessed as RASS (-3), and is currently not on mechanical ventilation. RASS scale moderate (-3) is movement or eye opening to voice but no eye contact. Patient Monitoring Once th e patient has demonstrated a response to the naloxone, continue to monitor respiratory rate, depth, oxygen saturation and end-tidal CO2 (if available) every 15 minutes x 2, then every 30 minutes x 2, th en every 1 hour x 1 after each naloxone dose. Consider transfer to ICU if patient respiratory parameters have not improved after 4 naloxone doses. naloxone (NARCAN) injection 0.2 mg 0.2 mg, Intramuscular, EVERY 2 MIN PRN, opioid reversal, Starting on Tue06/26/21 at 1028, Administer intramuscular if an intravenous route is not available and notify provider when administered. For un intended sedation or respiratory depress ion if all of the below criteria are met: ~ respiratory rate LESS than or EQUAL to 8. ~SaO2 less than 92% and or/end- tidal CO2 is greater than 50. ~ the patient i s receiving an opioid, has unintended se dations assessed as RASS (-3), and is currently not on mechanical ventilation. RASS scale moderate (-3) is movement or eye opening to voice but no eye contact. Pa tient Monitoring Once the patient has de monstrated a response to the naloxone, continue to [...] MIN PRN, op ioid reversal, Starting on Tue06/26/21 at 1028, Administer intravenous route when available and notify provider when administered. For unintended sedation or res piratory depression if all of the below criteria [...] voice but movement or eye opening to ph ysical stimulation. RASS scale (-5) is u narousable. Patient Monitoring Once the patient has demonstrated a response to the naloxone, continue to monitor respiratory rate, depth, oxygen saturation and en d-tidal CO2 (if available) every 15 gar[place] hang x 2, then every 30 minutes x 2, then every 1 hour x 1 after each naloxone dose. Consider transfer to ICU if patient respiratory parameters have not improved after 4 naloxone doses. naloxone (NARCAN) injection 0.4 mg 0.4 mg, Intramuscular, EVERY 2 MIN PRN, opioid reversal, Starting on Tue06/26/21 at 1028, Administer intramuscular if an intravenous route is not available and notify provider when administered. For un intended sedation or respiratory depress ion if all of the below criteria are met: ~ respiratory rate LESS than or EQUAL to 8. ~ SaO2 less than 92% and or/end-tidal CO2 is greater than 50. ~ the patient is receiving an opioid, has unintended s edation assessed as RASS (-4) or (-5) and patient is currently not on mechanical ventilation. RASS scale (-4) is deep sedation with no response to voice but movem ent or eye opening to physical stimulati on. RASS scale (-5) is unarousable. Patient Monitoring [...] have not improved after 4 naloxone doses. ondansetron (ZOFRAN) injection 4 mg 4 mg, Intravenous, ONCE PRN, nausea, vom iting, Administer over 2-5 Minutes, Starting on Tue06/26/21 at 1028, For 1 dose, Give in ENDO pre procedure prep area. Irritant., Pre-procedure ondansetron (ZOFRAN) injection 4 mg(Linked Group 1) 4 mg, Intravenous, EVERY 6 HOURS PRN, na usea, vomiting, Administer over 2-5 Minutes, Starting on Tue06/26/21 at 1028, This is Step 1 of nausea and vomiting management. If nausea not resolved in 15 garfield hang, go to Step 2 prochlorperazine (COMPAZINE). Irritant. ondansetron (ZOFRAN-ODT) ODT tab 4 mg(Linked Group 1) 4 mg, Oral, EVERY 6 HOURS PRN, nausea, v omiting, Starting on Tue06/26/21 at 1028, This is Step 1 of nausea and vomiting management. If nausea not resolved in 15 minutes, go to Step 2 prochlorperazine ( COMPAZINE). Do not push through foil dana hola. Peel back foil and gently remove. Place on tongue immediately. Administration with liquid unnecessary With dry hands, peel back foil backing and gently wade ve tablet. Do not push oral disintegrati ng tablet through foil backing. Administer immediately on tongue and oral disintegrating tablet dissolves in seconds, then swallow with saliva. Liquid not required. prochlorperazine (COMPAZINE) injection 10 mg(Linked Group 2) 10 mg, Intravenous, EVERY 6 HOURS PRN, n ausea, vomiting, Administer over 1-2 Minutes, Starting on Tue06/26/21 at 1028, This is Step 2 of nausea and vomiting management. If nausea not resolved in 15-30 minutes, Notify provider. prochlorperazine (COMPAZINE) tablet 10 mg(Linked Group 2) 10 mg, Oral, EVERY 6 HOURS PRN, nausea, vomiting, Starting on Tue06/26/21 at 1028, This is Step 2 of nausea and vomiting management. If nausea not resolved in 15-30 minutes, Notify provider. simethicone (MYLICON) suspension 133 mg 133 mg, Oral, ONCE PRN, other, gas bubbl es, Starting on Tue06/26/21 at 0942, For 1 dose, Give via endoscope, Intra-procedure sodium chloride (PF) 0.9% PF flush 3 mL 3 mL, Intracatheter, EVERY 1 MIN PRN, li ne flush, other, to ensure patency or to lock dormant line, Starting on Tue06/26/21 at 1028, Pre-procedure sodium chloride (PF) 0.9% PF flush 3 mL 3 mL, Intravenous, EVERY 1 HOUR PRN, jose e flush, Starting on Tue06/26/21 at 0942, Indications: for Peripheral IV flush post IV meds, Intra-procedure Linked Groups Order Group 1: ondansetron (ZOFRAN-ODT) ODT tab 4 mgJump to med 4 mg, Oral, EVERY 6 HOURS PRN, nausea, v omiting, Starting on Tue06/26/21 at 1028
This is Step 1 of nausea and vomiting management. If nausea not resolved in 15 minutes, go t o Step 2 prochlorperazine (COMPAZINE). D o not push through foil backing. Peel back foil and gently remove. Place on tongue immediately. Administration with liquid unnecessary With dry hands, pe el back foil backing and gently remove t ablet. Do not push oral disintegrating tablet through foil backing. Administer immediately on tongue and oral disintegrating tablet dissolves in seconds, then swallow with saliva. Liquid not required.
Or ondansetron (ZOFRAN) injection 4 mgJump to med 4 mg, Intravenous, EVERY 6 HOURS PRN, na usea, vomiting, Administer over 2-5 Minutes, Starting on Tue06/26/21 at 1028
This is Step 1 of nausea and vomiting management. If rowena sea not resolved in 15 minutes, go to St ep 2 prochlorperazine (COMPAZINE). Irritant.
Group 2: prochlorperazine (COMPAZINE) injection 10 mgJump to med 10 mg, Intravenous, EVERY 6 HOURS PRN, n ausea, vomiting, Administer over 1-2 Minutes, Starting on Tue06/26/21 at 1028
This is Step 2 of nausea and vomiting management. If nausea not resolved in 15-30 minutes, Notify provider.
Or prochlorperazine (COMPAZINE) tablet 10 mgJump to med 10 mg, Oral, EVERY 6 HOURS PRN, nausea, vomiting, Starting on Tue06/26/21 at 1028
This is Step 2 of nausea and vomiting management. If nausea not resolved in 15-30 minutes, Notify provider.
documented in this encounter Additional Health Concerns Assessment Noted Time PHQ-9 Depression Total Score: 2 04/02/2021 10:19 AM CD T documented as of this encounter Care Teams Nurse Ldr Relationship Specialty Start Date End Date Marija Edgar APRN PCP - General Nurse Practitioner 04/30/20 UNCLAIMED PROPERTY OFFICER [address] [place], [place] [id number] Lita Oseguera Personal Advocate & 02/28/20 Liaison (PAL) Marija Edgar APRN Assigned PCP 06/08/20 UNCLAIMED PROPERTY OFFICER [address] [place] [address] Mynor Broussard MD Assigned Surgical 06/01/20 11/28/21 [address] Provider [address] [place] [address] Keisha Dotson, Assigned Neuroscience 06/04/20 MD Provider [address] [place], [place] [phone] Galo Burrell MD Assigned Heart and 10/05/20 04/02/[address] [place] [address] Diana Desir, [facility] Pharmacist Pharmacist 04/17/21 [address] [place] [address] Rain Galaviz Physician Floor Scrubber Dermatology 04/28/21 ROVERTO Paredes [address] [place], [place] [phone] Summer Lara MD Assigned OBGYN Provider 05/31/21 03/12/[address] [place], [place] [id number] documented as of this encounter
--- OUTSIDE RECORDS SUMMARY | 2022-04-28 01:12 | XMS_ITS | Encounter Summary ---
:2000 Author Organization [facility] Address [address] [place] [id number] Care Team Providers Name Role Phone Lita Oseguera Unavailable Unavailable Marija Edgar APRN ADVERTISING ASSISTANT MANAGER Primary Care Provider [phone] Marija Edgar APRN ADVERTISING ASSISTANT MANAGER Unavailable Mynor Broussard MD Unavailable Keisha Dotson MD Unavailable Galo Burrell MD Unavailable Diana Desir [facility] Unavailable Rain Galaviz PA-C Unavailable [phone] Summer Lara MD Unavailable Encounter Details Date Type Department Care Team Description 06/26/2021 Travel Social History Tobacco Use Types Packs/Day [...] week 09/22/2021 How often do you attend jain or baptism services? Never 09/22/2021 Do you belong to any clubs or organizations such as No 09/22/2021 jain groups, unions, fraternal or athletic groups, or [...] with No / Unsure 06/26/2021 8:28 AM PAINTER SKI EDGE someone who was confirmed or suspected to have Coronavirus / COVID-19? documented as of this encounter Plan of Treatment Upcoming Encounters Date Type Specialty Care Team Description 04/28/2022 Office Visit Family Practice Anthony Doe, [place] [address] [place] [address] (Wo rk) 05/03/2022 Office Visit Dermatology Neil Kent M D [address] [place] [address] (Wo aldo) 05/05/2022 Office Visit Optometry Yeny David, OD [address] [place] [address] (Wo aldo) 05/11/2022 Virtual Visit Pharm D Diana Desir , [facility] [address] [place] [address] (Wo rk) 05/14/2022 Office Visit Cardiology Livan Sharif MD [address] [place] [address] (Wo rk) 05/31/2022 Office Visit Family Practice Valery Veronica , [facility] [address] [place] [address] (Wo rk) documented as of this encounter Visit Diagnoses Not on filedocumented in this encounter Additional Health Concerns Assessment Noted Time PHQ-9 Depression Total Score: 2 04/02/2021 10:19 AM CD T documented as of this encounter Care Teams Cone Classifier Tender Relationship Specialty Start Date End Date Marija Edgar APRN PCP - General Nurse Practitioner 04/30/20 ADVERTISING ASSISTANT MANAGER [address] [place] [address] Lita Oseguera Personal Advocate & 02/28/20 Liaison (PAL) Marija Edgar APRN Assigned PCP 06/08/20 ADVERTISING ASSISTANT MANAGER [address] [place] [address] Mynor Broussard MD Assigned Surgical 06/01/20 11/28/21 [address] Provider [address] [place] [address] Trevor-Keisha Peter, Assigned Neuroscience 06/04/20 MD Provider [address] [place] [address] Galo Burrell MD Assigned Heart and 10/05/20 04/02/22 [address] Vascular Provider [place] [address] Diana Desir, [facility] Pharmacist Pharmacist 04/17/21 [address] [place], [place] [phone] Rain Galaviz Physician Coal Cager Dermatology 04/28/21 ROVERTO Paredes [address] [facility] [address] [place], [place] [phone] Summer Lara MD Assigned OBGYN Provider 05/31/21 03/12/[address] [place], [place] [phone] documented as of this encounter
--- OUTSIDE RECORDS SUMMARY | 2022-04-28 01:12 | XMS_ITS | Encounter Summary ---
:2000 Author Organization [place] Address [address] [place] [address] Care Team Providers Name Role Phone Lita Oseguera Unavailable Unavailable Marija Edgar APRN FRUIT STUFFER Primary Care Provider [phone] Marija Edgar APRN FRUIT STUFFER Unavailable Mynor Broussard MD Unavailable Keisha Dotson MD Unavailable Galo Burrell MD Unavailable Diana Desir [facility] Unavailable Rain Galaviz PA-C Unavailable Summer Lara MD Unavailable Reason for Visit Reason Comments Medication Therapy Management Encounter Details Date Type Department Care Team Description 05/29/2021 Virtual Visit [facility] Diana Desir, Anxi ety (Primary Dx); Clinic [facility] Moderate major depression (H); [address] [place] [address] [phone] (Wo rk) Social History Tobacco Use Types [...] often do you attend oriental orthodox or advent services? Never 09/22/2021 Do you belong to [...] Patient Instructions Patient InstructionsWDiana nuñez, [facility] - 05/29/2021 2:30 PM CST Recommendations from today's MTM visit: 1. Increase sertraline to 200 mg daily. 2. Instead of hydrocortisone, try triamcinolone 0.1% cream twice daily for 14 days on affected areas. Wash hands after use. Repeat course when psoriasis flares return. Follow-up: Return in about 1 month (around 06/28/2021) for Medication Therapy Management Pharmacist. It was great to speak with you today. I value your experience and would be very thankful for your time with providing feedback on our clinic survey. You may receive a survey via email or text message in the next few days. To schedule another MTM appointment, please call the clinic directly or you may call the MTM scheduling line at [phone] or toll-free at . My Clinical Pharmacist's contact information: Please feel free to contact me with any questions or concerns you have. Diana Desir, Lorna Medication Therapy Management Provider, [facility] N RESOURCES TRAINEE documented in this encounter Progress Notes Diana Desir RPH - 05/29/2021 2:30 PM CST Medication Therapy Management (MTM) Encounter ASSESSMENT: Medication Adherence/Access: No issues identified Anxiety/Depression: Due to undetectable amounts of sertraline found in infants - 0.5-1% maternal weight adjusted dose, will increase sertraline dose today. Future once done , may consider switching to SNRI if still needed. Pharmacokinetic Gene Variants Gene Phenotype Notable Medications Impacted CYP2C9 Intermediate Metabolizer fluoxetine MTHFR Reduced Conversion Pharmacodynamic Gene Variants Gene Phenotype Notable Medications Impacted SLC6A4 Intermediate Response Sertraline and other SSRIs ADRA2A Moderately Reduced Response Psoriasis: Recommend switch hydrocortisone cream to triamcinolone cream for more potent steroid. Approved via verbal approval with PCP. Topical steroids may be used as un dectable amounts will cross over into breastmilk. If still ineffective, may trial more potent steroid with PCP next week prior to follow up with dermatology. Will consider shampoo for scalp once cream use is complete on spots on hands, knees and elbow. PLAN: 1. Increase sertraline to 200 mg daily. 2. Instead of hydrocortisone, try triamcinolone 0.1% cream twice daily for 14 days on affected areas. Wash hands after use. Repeat course when psoriasis flares return. Follow-up: Return in about 1 month (around 06/28/2021) for Medication Therapy Management Pharmacist. SUBJECTIVE/OBJECTIVE: Kim Johnson is a 21 year old female called for a follow-up visit. She was referred to me from Marija Edgar CNP. Today's visit is a follow-up MTM visit from 04/22. Reason for visit: sertraline follow-up. Tobacco: She reports that she quit smoking about 17 months ago. Her smoking use included other. She smoked 1.00 pack per day. She has never used smokeless tobacco. Alcohol: not currently using Medication Adherence/Access: no issues reported Anxiety/Depression: Current medications include: Sertraline 150mg once daily. Been on sertraline since high school, works okay but obessive about certain things. Sertraline doesn't work as well as it should. High anxiety. Overthinks a lot, worries a lot. More anxiety, not a very depressed person. Anxiety surprisingly to her has improved since breast feeding. Not happy with where I'm at but could deal with it until done breast feeding. Would like to consider increasing sertraline dose, anxiety still bad and not much has changed past month. Past med trial: Buspirone (made her feel very weird, suicidal thoughts she thinks) PHQ 09/29/2020 03/02/2021 04/02/2021 PHQ-9 Total Score 6 2 2 Q9: Thoughts of better off /self-harm past 2 weeks Not at all Not at all Not at all KALYN-7 SCORE 09/29/2020 03/02/2021 04/02/2021 Total Score 12 (moderate anxiety) 4 (minimal anxiety) 4 (minimal anxiety) Total Score 14 4 4 Psoriasis: Current medications include: hydrocortisone 0.2% cream twice daily as needed (for flares). Not effective enough. Flares worse now after . Spots on her knees, elbows, hands, ears andlarge patches on scalp. Will see PCP for this next week, dermatology in a month. Today's Vitals: There were no vitals taken for this visit. I spent 21 minutes with this patient today. All changes were made via collaborative practice agreement and verbal approval with Marija Edgar APRN CNP. A copy of the visit note was provided to the patient's primary care provider. The patient was sent via [employer] a summary of these recommendations. Diana Desir PharmD Medication Therapy Management Provider, [facility] Pager: [phone] Telemedicine Visit Details Type of service: Telephone visit Start Time: 2:31 PM End Time: 2:52 PM Originating Location (patient location): Home Distant Location (provider location): [facility] Medication Therapy Recommendations Anxiety Current Medication: sertraline (ZOLOFT) 100 MG tablet Rationale: Dose too low - Dosage too low - Effectiveness Recommendation: Increase Dose Status: Accepted per CPA Psoriasis Current Medication: triamcinolone (KENALOG) 0.1 % external cream Rationale: More effective medication available - Ineffective medication - Effectiveness Recommendation: Change Medication - hydrocortisone 0.2 % external cream Status: Accepted per CPA N RESOURCES TRAINEE documented in this encounter Plan of Treatment Upcoming Encounters Date Type Specialty Care Team Description 04/28/2022 Office Visit Family [facility] Anthony Doe PAUcheC [address] [place], [place] [phone] (Jefferson carlson) 05/03/2022 Office Visit Dermatology Neil Kent M D [address] [place] [address] (Wo rk) 05/05/2022 Office Visit Optometry Yeny David, OD [address] [facility] [address] [place] [id number] (Jefferson rk) 05/11/2022 Virtual Visit Pharm D Diana Desir , [facility] [address] [place], [place] [phone] (Wo rk) 05/14/2022 Office Visit Cardiology Livan Sharif MD [address] [facility] [address] [place], [place] [phone] (Wo rk) 05/31/2022 Office Visit Family Practice Valery Veronica , PAUcheC [address] [place] [address] (Wo rk) documented as of this encounter Visit Diagnoses Diagnosis Anxiety - Primary Anxiety state, unspecified Moderate major depression (H) Major depressive disorder, single episod e, moderate Psoriasis Other psoriasis documented in this encounter Additional Health Concerns Assessment Noted Time PHQ-9 Depression Total Score: 2 04/02/2021 10:19 AM CD T documented as of this encounter Care Teams Livestock Farmers Relationship Specialty Start Date End Date Marija Edgar APRN PCP - General Nurse Practitioner 04/30/20 FRUIT STUFFER [address] [place] [address] Lita Oseguera Personal Advocate & 02/28/20 Liaison (PAL) Marija Edgar APRN Assigned PCP 06/08/20 FRUIT STUFFER [address] [place] [address] Mynor Broussard MD Assigned Surgical 06/01/20 11/28/21 [address] [place] Provider [address] [place], [place] [address] Keisha Dotson, Assigned Neuroscience 06/04/20 MD Provider [address] [place] [address] Galo Burrell MD Assigned Heart and 10/05/20 04/02/22 [address] [place] [address] Diana Desir, [facility] Pharmacist Pharmacist 04/17/21 [address] [place], [place] [address] Rain Galvaiz Physician Potato Chip Packaging Machine Operator Dermatology 04/28/21 [address]aredes [address] [facility] [address] [place] [phone] Summer Lara MD Assigned OBGYN Provider 05/24/21 05/30/[address] [place] [address] documented as of this encounter
--- OUTSIDE RECORDS SUMMARY | 2022-04-28 01:12 | XMS_ITS | Encounter Summary ---
:2000 Author Organization [place] Address [address] [place] [address] Care Team Providers Name Role Phone Lita Oseguera Unavailable Unavailable Marija Edgar APRN DIRECTOR OF MARKET ANALYSIS Primary Care Provider [phone] Marija Edgar APRN DIRECTOR OF MARKET ANALYSIS Unavailable Mynor Broussard MD Unavailable Keisha Dotson MD Unavailable Galo Burrell MD Unavailable Diana Desir [facility] Unavailable Rain Galaviz PA-C Unavailable [phone] Summer Lara MD Unavailable Encounter Details Date Type Department Care Team Description 05/11/2021 Travel Social History Tobacco Use Types Packs/Day [...] How often do you attend orthodoxy or christianity services? Never 09/22/2021 Do you [...] Office Visit Family Practice Anthony Doe, ROVERTO [address] [place] [address] (Wo rk) 05/03/2022 Office Visit Dermatology Neil Kent M D [address] [place] [address] (Wo rk) 05/05/2022 Office Visit Optometry Yeny David, OD [address] [place] [address] (Wo aldo) 05/11/2022 Virtual Visit Pharm D Diana Desir , [facility] [address] [place] [address] (Wo rk) 05/14/2022 Office Visit Cardiology Livan Sharif MD [address], [address] [place] [address] (Wo rk) 05/31/2022 Office Visit Family Practice Valery Veronica , PA-C [address] [place], [place] [address] (Wo rk) documented as of this encounter Visit Diagnoses Not on filedocumented in this encounter Additional Health Concerns Infection Onset Date Last Indicated Resolved Time Rule Out COVID-19 05/11/2021 05/11/2021 05/13/2021 10: 18 AM CDT Assessment Noted Time PHQ-9 Depression Total Score: 2 04/02/2021 10:19 AM CD T documented as of this encounter Care Teams Inspector Automatic Typewriter Relationship Specialty Start Date End Date Marija Edgar APRN PCP - General Nurse Practitioner 04/30/20 DIRECTOR OF MARKET ANALYSIS [address] [place] [address] Lita Oseguera Personal Advocate & 02/28/20 Liaison (PAL) Marija Edgar APRN Assigned PCP 06/08/20 DIRECTOR OF MARKET ANALYSIS [address] [place] [address] Mynor Broussard MD Assigned Surgical 06/01/20 11/28/21 [address] [place] Provider [address] [place] [id number] Trevor-Keisha Peter, Assigned Neuroscience 06/04/20 MD Provider [address] [place], [place] [address] Galo Burrell MD Assigned Heart and 10/05/20 04/02/22 [address] [facility] [address] Vascular Provider [place] [address] Diana Desir, [facility] Pharmacist Pharmacist 04/17/21 [address] [place] [address] Rain Galaviz Physician Chief Engineer Dermatology 04/28/21 ROVERTO Paredes [address] [facility] [address] [place], [place] [phone] Summer Lara MD Assigned OBGYN Provider 05/10/21 05/23/[address] [place], [place] [address] documented as of this encounter
--- OUTSIDE RECORDS SUMMARY | 2022-04-28 01:12 | XMS_ITS | Encounter Summary ---
:2000 Author Organization [place] Address [address] [place] [address] Care Team Providers Name Role Phone Lita Oseguera Unavailable Unavailable Marija dEgar APRN INSIDE OUTSIDE SALES REPRESENTATIVE Primary Care Provider [phone] Marija Edgar APRN INSIDE OUTSIDE SALES REPRESENTATIVE Unavailable Mynor Broussard MD Unavailable Keisha Dotson MD Unavailable Galo Burrell MD Unavailable Diana Desir [facility] Unavailable Rain Galaviz PA-C Unavailable [phone] Summer Lara MD Unavailable Encounter Details Date Type Department Care Team Description 05/13/2021 Orders Only [facility] Aniya Paniagua e mastitis of Urgent Care [place] Natasha Yoder, kay ht breast (Primary [place] Dx) [address] [facility] [address] [place] [address] [phone] Social History Tobacco Use Types Packs/Day Years [...] How often do you attend caodaism or holiness services? Never 09/22/2021 Do you [...] Office Visit Family Practice Anthony Doe PA-C [address] [place] [address] (Wo rk) 05/03/2022 Office Visit Dermatology Neil Kent M D [address] [place] [address] (Wo rk) 05/05/2022 Office Visit Optometry Yeny David, OD [address] [facility] [place] [phone] (Wo rk) 05/11/2022 Virtual Visit Pharm D Diana Desir , [facility] [address] [place], [place] [address] (Wo rk) 05/14/2022 Office Visit Cardiology Livan Sharif MD [address] [place], [place] [address] (Wo rk) 05/31/2022 Office Visit Family Practice Valery Veronica , PAUcheC [address] [place], [place] [address] (Wo rk) documented as of this encounter Visit Diagnoses Diagnosis Acute mastitis of right breast - Primary Inflammatory disease of breast documented in this encounter Additional Health Concerns Infection Onset Date Last Indicated Resolved Time Rule Out COVID-19 05/11/2021 05/11/2021 05/13/2021 10: 18 AM CDT Assessment Noted Time PHQ-9 Depression Total Score: 2 04/02/2021 10:19 AM CD T documented as of this encounter Care Teams Laceworker Relationship Specialty Start Date End Date Marija Edgar APRN PCP - General Nurse Practitioner 04/30/20 INSIDE OUTSIDE SALES REPRESENTATIVE [address] [place] [address] Lita Oseguera Personal Advocate & 02/28/20 Liaison (PAL) Marija Edgar APRN Assigned PCP 06/08/20 INSIDE OUTSIDE SALES REPRESENTATIVE [address] [place], [place] [phone] Mynor Broussard MD Assigned Surgical 06/01/20 11/28/21 [address] Provider [address] [place] [address] Keisha Dotson, Assigned Neuroscience 06/04/20 Provider [address] [place] [address] Galo Burrell MD Assigned Heart and 10/05/20 04/02/22 [address] [place] [address] Diana Desir, [facility] Pharmacist Pharmacist 04/17/21 [address] [place] [address] Rain Galaviz Physician Overhead Irrigator Dermatology 04/28/21 ROVERTO Paredes [address] [facility] [address] [place], [place] [phone] Summer Lara MD Assigned OBGYN Provider 05/10/21 05/23/21 [address] [place], [place] [address] documented as of this encounter
--- OUTSIDE RECORDS SUMMARY | 2022-04-28 01:12 | XMS_ITS | Encounter Summary ---
:2000 Author Organization [facility] Address [address] [place] [address]. [place] [address] Care Team Providers Name Role Phone Lita Oseguera Unavailable Unavailable Marija Edgar APRN, CNP Primary Care Provider [phone] Marija Edgar APRN DENTAL PRACTICE MANAGER Unavailable Mynor Broussard MD Unavailable Keisha Dotson MD Unavailable Galo Burrell MD Unavailable Diana Desir [facility] Unavailable Rain Galaviz PA-C Unavailable Summer Lara MD Unavailable Reason for Visit Reason Comments Psoriasis Consult previous medical issues have anything to do with the psoriasis Encounter Details Date Type Department Care Team Description 06/01/2021 Virtual Visit [facility] Marija Edgar Moder ate major depression (H) (Primary Dx); Clinic [facility] DENTAL PRACTICE MANAGER Psoriasis [address] [place] [address] [phone] Social History Tobacco Use Types Packs/Day Years [...] How often do you attend amish or baptist services? Never 09/22/2021 Do you [...] documented as of this encounter Progress Notes Marija Edgar APRN DENTAL PRACTICE MANAGER - 06/01/2021 1:40 PM CST Kim is a 21 year old who is being evaluated via a billable telephone visit. What phone number would you like to be contacted at? How would you like to obtain your AVS? MyChart Assessment & Plan Moderate major depression (H) Increase of dose to 200 mg/day per MTM last week. Reassurance given for use during . Psoriasis Will plan to continue trial of triamcinolone. If skin clearing to comfortable level, may move on to shampoo to treat scalp. If skin not clearing, increase potency of steroid to betamethasone. Pharmacist reviewed and would be safe during . Follow-up with Dermatology as planned 07/2021 Return in about 4 weeks (around 06/29/2021) for Preventive Visit. Marija Edgar APRN CNP [facility] JAMIE Alvarez is a 21 year old who presents for the following health issues HPI Rash Onset/Duration: has had psoriasis x years. Description Location: elbows, ears, scalp, hands, and knees Character: round, blotchy, raised, burning, red Itching: mild Intensity: moderate Progression of Symptoms: worsening Accompanying signs and symptoms: Fever: no Body aches or joint pain: no Sore throat symptoms: no Recent cold symptoms: no History: Previous episodes of similar rash: yes had had for a while New exposures: None Recent travel: no Exposure to similar rash: no Precipitating or alleviating factors: none Therapies tried and outcome: Eucerin OTC-is can only use so much Recent prescription of triamcinolone per Pharmacist recommendations due to . Has not been able to start medication due to Pharmacy supply. Is able to poultry picking machine tender later today. Scalp with plaques, using Selsun Blue. Has consult with Dermatology in July 2021 Review of Systems Constitutional, HEENT, cardiovascular, pulmonary, gi and gu systems are negative, except as otherwise noted. Objective Vitals: No vitals were obtained today due to virtual visit. Physical Exam healthy, alert and no distress PSYCH: Alert and oriented times 3; coherent speech, normal rate and volume, able to articulate logical thoughts, able to abstract reason, no tangential thoughts, no hallucinations or delusions Her affect is normal RESP: No cough, no audible wheezing, able to talk in full sentences Remainder of exam unable to be completed due to telephone visits Phone call duration: 8 minutes PLUG PACKER documented in this encounter Plan of Treatment Upcoming Encounters Date Type Specialty Care Team Description 04/28/2022 Office Visit Family Practice Anthony Doe PA-C [address] [place], [place] [phone] (Wo rk) 05/03/2022 Office Visit Dermatology Neil Kent M D [address] [place] [address] (Wo rk) 05/05/2022 Office Visit Optometry Yeny David, OD [address] [facility] [place] [address] (Wo rk) 05/11/2022 Virtual Visit Pharm D Diana Desir , [facility] [address] [place] [address] (Wo rk) 05/14/2022 Office Visit Cardiology Livan Sharif MD [address], [facility] [address] [place] [address] (Wo rk) 05/31/2022 Office Visit Family Practice Valery Veronica PA-C [address] [place], [place] [address] (Wo rk) documented as of this encounter Visit Diagnoses Diagnosis Moderate major depression (H) - Primary Major depressive disorder, single episod e, moderate Psoriasis Other psoriasis documented in this encounter Additional Health Concerns Assessment Noted Time PHQ-9 Depression Total Score: 2 04/02/2021 10:19 AM CD T documented as of this encounter Care Teams Hospice Clinical Manager Relationship Specialty Start Date End Date Marija Edgar APRN PCP - General Nurse Practitioner 04/30/20 DENTAL PRACTICE MANAGER [address] [place], [place] [phone] Lita Oseguera Personal Advocate & 02/28/20 Liaison (PAL) Marija Edgar APRN Assigned PCP 06/08/20 DENTAL PRACTICE MANAGER [address] [place], [place] [phone] Mynor Broussard MD Assigned Surgical 06/01/20 11/28/21 [address] Provider [address] [place] [address] Keisha Dotson, Assigned Neuroscience 06/04/20 MD Provider [address] [place], [place] [address] Galo Burrell MD Assigned Heart and 10/05/20 04/02/22 [address] Vascular Provider [place], [place] [address] Diana Desir, [facility] Pharmacist Pharmacist 04/17/[address] [place] [address] Lab Technician Dermatology 04/28/21 ROVERTO Paredes [address] [facility] [address] [place], [place] [phone] Summer Lara MD Assigned OBGYN Provider 05/31/21 03/12/[address] [place], [place] [address] documented as of this encounter
--- OUTSIDE RECORDS SUMMARY | 2022-04-28 01:12 | XMS_ITS | Encounter Summary ---
:2000 Author Organization [facility] Address [address] [place] [address]. [place] [address] Care Team Providers Name Role Phone Lita Oseguera Unavailable Unavailable Marija Edgar APRN MANUFACTURING TEAM MEMBER Primary Care Provider [phone] Marija Edgar APRN MANUFACTURING TEAM MEMBER Unavailable Mynor Broussard MD Unavailable Keisha Dotson MD Unavailable Galo Burrell MD Unavailable Diana Desir [facility] Unavailable Rain Galaviz PA-C Unavailable [phone] Summer Lara MD Unavailable Reason for Visit Reason Comments Sick FLORES ,chills, fever- was treat ed last Tuesday - possible COVID exposure Pain pain in right arm and chest x yesterday on and off- HX of this in the past Encounter Details Date Type Department Care Team Description 05/11/[address] [facility] Nicole Garcia, Viral up per Urgent Care Tiago woods PA-C respiratory tract [id number] [place] infection with cough [place], [place] [facility] (Primary Dx) [phone] [address] [phone] [place], [place] [id number] Social History Tobacco Use Types Packs/Day Years [...] How often do you attend nondenominational or taoist services? Never 09/22/2021 Do you [...] Sign Reading Time Taken Comments Blood Pressure 114/64 05/11/2021 5:56 PM CDT Pulse 78 05/11/2021 5:56 PM CDT Temperature 37.2 ??C (99 ??F) 05/11/2021 5:56 PM CDT Respiratory Rate 16 05/11/2021 5:56 PM CDT Oxygen Saturation 99% 05/11/2021 5:56 PM CDT Inhaled Oxygen Concentration - - Weight 90.7 kg (200 lb) 05/11/2021 5:56 PM CDT Height - - Body Mass Index 32.28 04/16/2021 6:29 PM CDT documented in this encounter Patient Instructions Patient InstructionsAlNicole rodríguez PA-C - 05/11/2021 5:30 PM CDT Patient was educated on the natural course of condition. COVID PCR is pending. Conservative measuresdiscussed including increased fluids, rest, and analgesics (Tylenol and/or Ibuprofen). Finish antibiotic for mastitis. See your primary care provider if symptoms worsen or do not improve in 7 days. Seek emergency care if you develop fever over 104 or shortness of breath. documented in this encounter Progress Notes Nicole Garcia PA-C - 05/11/2021 5:30 PM CDT URGENT CARE VISIT: SUBJECTIVE: Kim Johnson is a 21 year old female presenting with a chief complaint of fever, chills and headache. Onset was 3 day(s) ago. She denies the following symptoms: stuffy nose, cough - productive, vomiting and diarrhea She had a migraine this weekend which improved but feels foggy still. Course of illness is same. Treatment measures tried include None tried with no relief of symptoms. Predisposing factors include exposed to COVID possibly. PMH: Past Medical History: Diagnosis Date ??? Anxiety ??? Chronic kidney disease stones, history of infections ??? Depressive disorder ??? Gastroesophageal reflux disease ??? Psoriasis ??? Seizure (H) 05/02/2019 no seizure since 2017 ??? SVT (supraventricular tachycardia) (H) Allergies: Patient has no known allergies. Medications: Current Outpatient Medications Medication Sig Dispense Refill ??? dicloxacillin (DYNAPEN) 500 MG capsule Take 1 capsule (500 mg) by mouth 4 times daily for 10 days 40 capsule 0 ??? hydrocortisone (WESTCORT) 0.2 % external cream Apply topically 2 times daily as needed (psoriasis flare) 60 g 0 ??? levETIRAcetam (KEPPRA) 500 MG tablet Take 1 tablet (500 mg) by mouth daily 90 tablet 1 ??? omeprazole (PRILOSEC) [address] capsule Take 1 capsule (40 mg) by mouth daily 90 capsule 0 ??? Vit-Fe Fumarate-FA ( MULTIVITAMIN W/IRON) 27-0.8 MG tablet Take 1 tablet by mouth daily 90 tablet 3 ??? sertraline (ZOLOFT) 100 MG tablet TAKE ONE AND ONE-HALF TABLETS BY MOUTH EVERY DAY 135 tablet 0 Social History: Social History Tobacco Use ??? Smoking status: Former Smoker Packs/day: 1.00 Types: Other Quit date: 12/07/2019 Years since quittin.4 ??? Smokeless tobacco: Never Used Substance Use Topics ??? Alcohol use: Not Currently ROS: Review of systems negative except as stated above. OBJECTIVE: BP 114/64 (BP Location: Right arm, Patient Position: Chair, Cuff Size: Adult Regular) Pulse 78 Temp 99 ??F (37.2 ??C) (Oral) Resp 16 Wt 90.7 kg (200 lb) SpO2 99% BMI 32.28 kg/m?? GENERAL APPEARANCE: healthy, alert and no distress EYES: EOMI, PERRL, conjunctiva clear HENT: ear canals and TM's normal. Nose and mouth without ulcers, erythema or lesions NECK: supple, nontender, no lymphadenopathy RESP: lungs clear to auscultation - no rales, rhonchi or wheezes CV: regular rates and rhythm, normal S1 S2, no murmur noted SKIN: no suspicious lesions or rashes ASSESSMENT: ICD-10-CM 1. Viral upper respiratory tract infection with cough J06.9 Symptomatic COVID-19 Virus (Coronavirus)by PCR Nose PLAN: Patient Instructions Patient was educated on the natural course of condition. COVID PCR is pending. Conservative measuresdiscussed including increased fluids, rest, and analgesics (Tylenol and/or Ibuprofen). Finish antibiotic for mastitis. See your primary care provider if symptoms worsen or do not improve in 7 days. Seek emergency care if you develop fever over 104 or shortness of breath. Patient verbalized understanding and is agreeable to plan. The patient was discharged ambulatory andin stable condition. Nicole Garcia PA-C .................... 05/11/2021 6:32 PM documented in this encounter Plan of Treatment Upcoming Encounters Date Type Specialty Care Team Description 04/28/2022 Office Visit [facility] Anthony Doe PA-C [address] [place], [place] [phone] (Wo rk) 05/03/2022 Office Visit Dermatology Neil Kent M D [address] [place] [address] [phone] (Wo rk) 05/05/2022 Office Visit Optometry Yeyn David, OD [address] [place], [place] [phone] (Wo rk) 05/11/2022 Virtual Visit Pharm D Diana Desir , [facility] [address] [place], [place] [phone] (Wo rk) 05/14/2022 Office Visit Cardiology Livan Sharif MD [address] [facility] [address] [place], [place] [address] (Wo rk) 05/31/2022 Office Visit [facility] Valery Veronica PA-C [address] [place], [place] [address] (Wo rk) documented as of this encounter Procedures Procedure Name Priority Date/Time Associated Diagnosis Comme nts COVID-19 VIRUS Routine 05/11/2021 5:42 PM Viral upper Results for this (CORONAVIRUS) BY CDT respiratory tract proced ure are in PCR infection with cough the res ults section. documented in this encounter Results Symptomatic COVID-19 Virus (Coronavirus) by PCR Nose (05/11/2021 5:42 PM CDT) Analysis Performed At Patho logist Time Signature SARS CoV2 PCR Negative Negative 05/13/2021 [facility] 10:18 AM CDT LABORATORY Comment: NEGATIVE: SARS-CoV-2 (COVID-19) RNA not detected, presumed negative. Specimen Anatomical Collection Method Collection Time Receive d Time (Source) Location / / Volume Laterality Swab NASAL STRUCTURE / Non-blood 05/11/2021 5:42 PM 110 07/2020 6:37 Unknown Collection / CDT PM CDT Unknown Narrative [facility] - 05/13/2021 10:18 AM CDT Testing was performed using the candy SARS-CoV-2 assay on the candy WaveDeck0 System. This test should be ordered for [...] This hang t was validated by the [facility] Infectious Diseases Diag nostic Laboratory. This laboratory is certified under the [place] Laboratory Improvement Amendments of 1988 (CLIA-88) as qualifie d to perform high and/or moderate complexity laboratory testing. Nicole Garcia PA-C LAB - MICRO GENERAL ORDERABL ES Performing Organization Address City/State/ZIP Code Phon e Number [facility] [place] [place] [address] Diag. Lab [address] [facility], Room [address] [facility] Infectious [place], [place] [phone] Diseases Diagnostic [id number], [facility] Lab (IDDL) [address] [facility], Room [address]297 documented in this encounter Visit Diagnoses Diagnosis Viral upper respiratory tract infection with cough - Primary Acute upper respiratory infections of un specified site documented in this encounter Additional Health Concerns Infection Onset Date Last Indicated Resolved Time Rule Out COVID-19 05/11/2021 05/11/2021 05/13/2021 10: 18 AM CDT Assessment Noted Time PHQ-9 Depression Total Score: 2 04/02/2021 10:19 AM CD T documented as of this encounter Care Teams Flight Engineer Helicopter Relationship Specialty Start Date End Date Mariaj Edgar APRN PCP - General Nurse Practitioner 04/30/20 MANUFACTURING TEAM MEMBER [address] [place] [address] Lita Oseguera Personal Advocate & 02/28/20 Liaison (PAL) Marija Edgar APRN Assigned PCP 06/08/20 MANUFACTURING TEAM MEMBER [address] [place] [address] Mynor Broussard MD Assigned Surgical 06/01/20 11/28/21 [address] Provider 500 [place] [address] Keisha Dotson, Assigned Neuroscience 06/04/20 MD Provider [address] [place] [address] Galo Burrell MD Assigned Heart and 10/05/20 04/02/22 [address] [place] [address] Diana Desir, [facility] Pharmacist Pharmacist 04/17/21 [address] [place], [place] [address] Rain Galaviz Physician As400 Administrator Dermatology 04/28/21 R[address] Paredes [address] [place] [address] [address] [facility] [place] [phone] Summer Lara MD Assigned OBGYN Provider 05/10/21 05/23/[address] [place] [address] documented as of this encounter
--- OUTSIDE RECORDS SUMMARY | 2022-04-28 01:12 | XMS_ITS | Encounter Summary ---
:2000 Author Organization [facility] Address [address] [place] [address]. [place] [address] Care Team Providers Name Role Phone Lita Oseguera Unavailable Unavailable Marija Edgar APRN ACID TESTER Primary Care Provider [phone] Marija Edgar APRN ACID TESTER Unavailable Mynor Broussard MD Unavailable Keisha Dotson MD Unavailable Galo Burrell MD Unavailable Diana Desir [facility] Unavailable Rain Galaviz PA-C Unavailable Summer Lara MD Unavailable Reason for Visit Reason Onset Date Comments Medication Request 05/13/2021 Encounter Details Date Type Department Care Team Description 05/13/2021 Telephone [facility] Marija Edgar, Medication Request [place] [place] ACID TESTER [address] [address] [phone] (Wo rk) Social History Tobacco Use Types [...] week 09/22/2021 How often do you attend advent or lutheran services? Never 09/22/2021 Do you belong to any clubs or organizations such as No 09/22/2021 advent groups, unions, fraternal or athletic groups, or [...] this encounter Miscellaneous Notes Telephone Encounter - Eric Hastings RN - 05/13/2021 11:13 AM CDT Pt calling in regarding UC visit on 05/08/21 for mastitis. Pt was given dicloxacillin (DYNAPEN) 500 MG capsule 40 capsule 0 05/08/2021 05/18/2021 -- Sig - Route: Take 1 capsule (500 mg) by mouth 4 times daily for 10 days - Oral Sent to pharmacy as: Dicloxacillin Sodium 500 MG Oral Capsule (DYNAPEN) Class: E-Prescribe Pharmacy was only able to fulfill a partial Rx as it was on backorder and is unable to fill the restof the Rx. Called a different pharmacy, [facility] in [place], for pt and they did not have it availableeither. Huddled with provider, Dr. Paniagua, who stated they would given new Rx to pt and will send it to [facility] pharmacy for pt. cephALEXin (KEFLEX) 500 MG capsule 40 capsule 0 05/13/2021 05/23/2021 -- Sig - Route: Take 1 capsule (500 mg) by mouth 4 times daily for 10 days - Oral Class: E-Prescribe Order: [id number] Pt was called and notified of medication change. Pt verbalized understanding, no further questions or concerns at this time. Eric Calzada RN documented in this encounter Plan of Treatment Upcoming Encounters Date Type Specialty Care Team Description 04/28/2022 Office Visit Family Practice Anthony Doe, [address] [address] [place], [place] [phone] ([place] carlson) 05/03/2022 Office Visit Dermatology Neil Kent M D [address] [place], [place] [phone] ([place] carlson) 05/05/2022 Office Visit Optometry Yeny David, OD [address] [facility] [address] [place] [phone] (Wo rk) 05/11/2022 Virtual Visit Pharm D Diana Desir , [facility] [address] [place], [place] [phone] ([place] carlson) 05/14/2022 Office Visit Cardiology Livan Sharif MD [address], [address] [place] [address] (Wo rk) 05/31/2022 Office Visit Family Practice Valery Veronica PA-C [address] [place], [place] [phone] (Wo rk) documented as of this encounter Visit Diagnoses Not on filedocumented in this encounter Additional Health Concerns Infection Onset Date Last Indicated Resolved Time Rule Out COVID-19 05/11/2021 05/11/2021 05/13/2021 10: 18 AM CDT Assessment Noted Time PHQ-9 Depression Total Score: 2 04/02/2021 10:19 AM CD T documented as of this encounter Care Teams Electric Screw Driver Operator Relationship Specialty Start Date End Date Marija Edgar APRN PCP - General Nurse Practitioner 04/30/20 ACID TESTER [address] [place] [address] Lita Oseguera Personal Advocate & 02/28/20 Liaison (PAL) Marija Edgar APRN Assigned PCP 06/08/20 ACID TESTER [address] [place] [address] Mynor Broussard MD Assigned Surgical 06/01/20 11/28/21 [address] Provider 500 [place] [address] Keisha Dotson, Assigned Neuroscience 06/04/20 Provider 9 [place] [address] Galo Burrell MD Assigned Heart and 10/05/20 04/02/22 [address] [place] [address] Diana Desir, [facility] Pharmacist Pharmacist 04/17/21 [address] [place] [address] Rain Galaviz Physician Quality Internship Dermatology 04/28/21 [address] Paredes [address] [place], [place] [phone] Summer Lara MD Assigned OBGYN Provider 05/10/21 05/23/[address] [place], [place] [address] [place] [address] documented as of this encounter
--- OUTSIDE RECORDS SUMMARY | 2022-04-28 01:12 | XMS_ITS | Encounter Summary ---
:2000 Author Organization [facility] Address [address] [place] [address] Care Team Providers Name Role Phone Lita Oseguera Unavailable Unavailable Marija Edgar APRN HOIST WORKER Primary Care Provider [phone] Marija Edgar APRN HOIST WORKER Unavailable Mynor Broussard MD Unavailable Keisha Dotson MD Unavailable Galo Burrell MD Unavailable Diana Desir [facility] Unavailable Rain Galaviz PA-C Unavailable Summer Lara MD Unavailable Encounter Details Date Type Department Care Team Description 06/10/2021 Telephone [facility] Keisha Dotson, [address] [place], [place] [phone] [place] [address] (Wo rk) Social History Tobacco [...] How often do you attend religious or taoist services? Never 09/22/2021 Do you belong to any clubs or organizations such as No 09/22/2021 religious groups, unions, fraGrain Management or athletic groups, or school groups? How [...] place to sleep or slept in a long term (including now)? Education Answer Date Recorded What [...] this encounter Miscellaneous Notes Telephone Encounter - Sweta Tee - 06/15/2021 2:52 PM CST Pt called again asking for results from MRI, please call back. US COORDINATOR Telephone Encounter - Pao Latham - 06/11/2021 1:05 PM CST Patient called back to check on discussing results US COORDINATOR Telephone Encounter - Pao Latham - 06/10/2021 1:47 PM CST Patient called to say she received call from Tanna that results for her MRI had been completed and sent to office. I could not locate them. She is wanting a call back to discuss results. US COORDINATOR documented in this encounter Plan of Treatment Upcoming Encounters Date Type Specialty Care Team Description 04/28/2022 Office Visit Family Practice Anthony Doe PAUcheC [address] [place] [address] (Wo rk) 05/03/2022 Office Visit Dermatology Neil Kent M D [address] [place], [place] [phone] (Wo rk) 05/05/2022 Office Visit Optometry Yeny David, OD [address] [facility] [address] [place] [phone] (Wo rk) 05/11/2022 Virtual Visit Pharm Diana Eckert , [facility] [address] [place], [place] [address] (Wo rk) 05/14/2022 Office Visit Cardiology Livan Sharif MD [address] [facility] [address] [place], [place] [address] (Wo rk) 05/31/2022 Office Visit Family Practice Valery Veronica PAUcheC 9[address] [place], [place] [address] (Wo rk) documented as of this encounter Visit Diagnoses Diagnosis Pain of left upper extremity - Primary documented in this encounter Additional Health Concerns Assessment Noted Time PHQ-9 Depression Total Score: 2 04/02/2021 10:19 AM CD T documented as of this encounter Care Teams Protective Signal Operator Relationship Specialty Start Date End Date Marija Edgar APRN PCP - General Nurse Practitioner 04/30/20 HOIST WORKER [address] [place] [address] Lita Oseguera Personal Advocate & 02/28/20 Liaison (PAL) Marija Edgar APRN Assigned PCP 06/08/20 HOIST WORKER [address] [place] [address] Mynor Broussard MD Assigned Surgical 06/01/20 11/28/[address] [place] Provider [address] [place] [address] Keisha Dotson, Assigned Neuroscience 06/04/20 MD Provider [address] [place] [address] Galo Burrell MD Assigned Heart and 10/05/20 04/02/22 [address] [place] [address] Diana Desir, [facility] Pharmacist Pharmacist 04/17/[address] [place] [address] Rain Galaviz Physician Audience Coordinator Dermatology 04/28/21 [address]ERT[address]aredes [address] [facility] [address] [place] [phone] Summer Lara MD Assigned OBGYN Provider 05/31/21 03/12/[address] [place] [address] documented as of this encounter
--- OUTSIDE RECORDS SUMMARY | 2022-04-28 01:12 | XMS_ITS | Encounter Summary ---
:2000 Author Organization [facility] Address [address] [place] [address] Care Team Providers Name Role Phone Lita Oseguera Unavailable Unavailable Marija Edgar APRN FISH LIVER SORTER Primary Care Provider [phone] Marija Edgar APRN FISH LIVER SORTER Unavailable Mynor Broussard MD Unavailable Keisha Dotson [...] ESOPHAGOGASTRODUODENOSCOPY (EGD) (fv) [address] [place] [address] Phone: Fax: Referral ID Status Reason Start Date Expiration Date Visits Requ ested Visits Authorized [id number] 1 1 Encounter Details Date Type Department Care Team Description 06/26/[address] [facility] Rey Sheppard , Endoscopy Leonie ACEVEDO [address] [facility] [address] [phone] [place] [address] (Wo rk) Social History Tobacco Use Types [...] week 09/22/2021 How often do you attend restoration or worship services? Never 09/22/2021 Do you belong to any clubs or organizations such as No 09/22/2021 restoration groups, unions, fraternal or athletic groups, or [...] with No / Unsure 06/26/2021 8:28 AM SINGLE ENDING 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 someone who was confirmed or suspected to have Coronavirus / COVID-19? documented as of this encounter Last Filed Vital Signs Vital Sign Reading Time Taken Comments Blood Pressure 105/70 06/26/2021 10:50 AM SINGLE ENDING 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 Pulse 68 06/26/2021 10:50 AM SINGLE ENDING 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 Temperature - - Respiratory Rate 16 06/26/2021 10:50 AM SINGLE ENDING 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 Oxygen Saturation 98% 06/26/2021 10:50 AM SINGLE ENDING 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 Inhaled Oxygen Concentration - - Weight 90.7 kg (200 lb) 06/26/2021 9:12 AM SINGLE ENDING 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 Height 167.6 cm (5' 6) 06/26/2021 9:12 AM SINGLE ENDING 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 Body Mass Index 32.28 06/26/2021 9:12 AM SINGLE ENDING 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 documented in this encounter Discharge Instructions [...] the bed frame to raise it. ?? [id number] [facility], [address] [place] [address], [place] [address]. All rights reserved. This information is not intended as a substitute for professional medical care. Always follow your healthcare professional's instructions. LE ENDING 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 documented in this encounter Medications at [...] mouth daily 03/03/21 Yes Marija Edgar APRN CNP Vit-Fe Fumarate-FA ( MULTIVITAMIN W/IRON) 27-0.8 MG [...] by: Rey Sheppard MD June 26, 2021 LE ENDING 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 documented in this encounter Plan of Treatment Upcoming Encounters Date Type Specialty Care Team Description 04/28/2022 Office Visit [facility] Anthony Doe, PAUcheC [address] [place], [place] [phone] (Wo rk) 05/03/2022 Office Visit Dermatology Neil Kent M D [address] [place] [address] (Wo rk) 05/05/2022 Office Visit Optometry Yeny David, OD [address] [facility] [address] [place] [phone] (Wo rk) 05/11/2022 Virtual Visit Pharm D Diana Desir , [facility] [address] [place], [place] [phone] (Wo rk) 05/14/2022 Office Visit Cardiology Livan Sharif MD [address] [facility] [address] , [facility] [address] [place], [place] [phone] (Wo rk) 05/31/2022 Office Visit [facility] JeremíasValery damon PA-C [address] [place] [address] (Wo rk) documented as of this encounter Procedures Procedure Name Priority Date/Time Associated Comments Diagnosis UPPER GI ENDOSCOPY Routine 06/26/2021 Results f or 9:57 AM SINGLE ENDING 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 this procedure are in the results section. ESOPHAGOGASTRODUODENOSCOPY (EGD) 06/26/2021 Black stool 9:47 AM SINGLE ENDING 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 Gastroesophageal reflux disease with esophagitis without hemorrhage Special Needs Egd info s 06/09 jm; per pha rmacy pt should pump and dump x1 post-procedure then can breastfeed after that, B R documented in this encounter Results UPPER GI ENDOSCOPY (06/26/2021 9:57 AM SINGLE ENDING 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) Component Value Ref Test Analysis Performed At [facility] Range Method Time Signature Upper GI [facility] RADIOLOGY Endoscopy RESULTS Patient Name: Kim Johnson ? Procedure Da te: 06/26/2021 9:57 AM ? Accou nt Number: [id number] Date of : 2000 ? Admit Type: Outp atient Age: 21 ? Gender: Female Attending MD: Rey art MD ?? Total Sedation Time: 5_minutes continuous bedside 1:1 Instrument Name: 207- Gastroscope ? Procedure: ?Upper GI endoscopy Indications: ?Esophageal reflux Providers: ?Rey Sheppard MD (Doc tor) Referring MD: ? Medicines: ?Midazolam 2 mg [...] # [id number], [place]ora # ?207, SN # [id number] was introduced through the mouth, ?and advanced to the second part of duodenum. The ?upper GI endoscopy was accomplished without ?difficulty. The patient tolerated the procedure ?well. ? Findings: ? The esophagus was normal. ? The stomach was normal. ? The examined duodenum was normal. ? Impression: ? - Normal esophagus. ?- Normal stomach. ?- Normal examined duo denum. ?- No specimens collec maddie. Recommendation: ? - Continue present medication s. ?- Follow an antireflux regimen indefinitely. ? Procedure Code(s): ? --- Professional --- ? 49248, Esophagogastroduodenoscopy, flexible, transora l; diagnostic, ? including collection of specimen(s) by brushing or wa shing, when ? performed (separate procedure) Diagnosis Code(s): ? --- Professional --- ? K21.9, Gastro-esophageal reflux disease without esoph agitis CPT copyright 2020 [employer]. All rights reserved. The codes documented in this report are prelimin richard and upon corrugated box machine operator review may be revised to meet current compliance requirements. Electronically signed by Rey Sheppard MD Rey Sheppard MD 06/26/2021 10:11:56 AM I was physically present for the entire viewing portion of t he exam. Rey Sheppard MD Number of Addenda: 0 Note Initiated On: 06/26/2021 9:57 AM MRN: ?[id number] Procedure Date: ? 06/26/2021 9:57:47 AM Total Procedure Duration: 0 hours 2 minutes 22 seconds Estimated Blood Loss: ? Scope In: 10:01:58 AM Scope Out: 10:04:20 AM Specimen (Source) Anatomical Collection Method Collection Time Re ceived Time Location / / Volume Laterality 06/26/2021 9:57 AM SINGLE ENDING 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 Rey Sheppard MD PROCEDURES Performing Organization Address City/State/ZIP Code Phon e Number RADIOLOGY RESULTS documented in this encounter Visit Diagnoses Not on filedocumented in this encounter Administered Medications Inactive Administered [...] on Tue06/26/21 at 0942, For 1 dose, [place] throat with 1-4 sp rays 5 minutes prior to procedure., Intra-procedure benzocaine 20% (HURRICAINE/TOPEX) 20 % Given 06/26/2021 10:00 AM SINGLE ENDING 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 0.5 mLs spray Mouth/Throat, PRN, Starting [...] (PF) (SUBLIMAZE) injection Given 06/26/2021 9:59 AM SINGLE ENDING 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 100 mcg Intravenous, PRN, Administer over [...] midazolam (VERSED) injection Given 06/26/2021 9:59 AM SINGLE ENDING 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 2 mg Intravenous, Administer over 2 [...] 1028, Administer intramuscular if an intravenous ro shena is not available and notify provider when [...] 1028, Administer intramuscular if an intravenous ro shena is not available and notify provider when [...] Recently Administered Medications Times are shown in SINGLE ENDING 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. Scheduled Medication Order 06/24/2021 06/25/2021 06/26/2021 fentaNYL (PF) (SUBLIMAZE) injection 50-100 mcg 1000 [...] on Tue06/26/21 at 0942, For 1 dose, [place] throat with 1-4 sprays 5 minutes prior [...] provider., Intra-procedure fentaNYL (PF) (SUBLIMAZE) injection (COMPLETED) 958 (Given - Provider: Leann Serrano RN) Intravenous, [...] documented as of this encounter Care Teams Planning And Analysis Manager Relationship Specialty Start Date End Date Marija Edgar APRN PCP - General Nurse Practitioner 04/30/20 FISH LIVER SORTER [address] [place] [address] Lita Oseguera Personal Advocate & 02/28/20 Liaison (PAL) Marija Edgar APRN Assigned PCP 06/08/20 FISH LIVER SORTER [address] [place] [address] Mynor Broussard MD Assigned Surgical 06/01/20 11/28/[address] [place] Provider [address] [place], [place] [address] Keisha Dotson, Assigned Neuroscience 06/04/20 MD Provider [address] [place] [address] Galo Burrell MD Assigned Heart and 10/05/20 04/02/[address] [place] [address] Diana Desir, [facility] Pharmacist Pharmacist 04/17/[address] [place], [place] [address] Rain Galaviz Physician Gerentological Physiotherapist Dermatology 04/28/21 ROVERTO Paredes [address] [place] [address] [address] [facility] [place] [phone] Summer Lara MD Assigned OBGYN Provider 05/31/21 03/12/[address] [place], [place] [address] documented as of this encounter
--- OUTSIDE RECORDS SUMMARY | 2022-04-28 01:12 | XMS_ITS | Encounter Summary ---
:2000 Author Organization [facility] Address [address] [place] [address] Care Team Providers Name Role Phone Lita Oseguera Unavailable Unavailable Marija Edgar APRN AUTO TRANSMISSION SPECIALIST Primary Care Provider [phone] Marija Edgar APRN AUTO TRANSMISSION SPECIALIST Unavailable Mynor Broussard MD Unavailable Keisha Dotson MD Unavailable Galo Burrell MD Unavailable Diana Desir [facility] Unavailable Rain Galaviz PA-C Unavailable [phone] Summer Lara MD Unavailable Tavia Wyatt MD Unavailable Unavailable Reason for Visit Reason Onset Date Comments Clinic Care Coordination - Face To Face 07/10/2021 ER Encounter Details Date Type Department Care Team Description 07/10/2021 Telephone [facility] Heart Alexus Avalos C linic Care Coordination Clinic Cesar RN - Face To Face (ER) [address] [facility] [address] [place] [address] Social History Tobacco Use Types Packs/Day [...] How often do you attend restorationism or shinto services? Never 09/22/2021 Do you belong to any clubs or organizations such as No 09/22/2021 restorationism groups, unions, fraCinemaKi or athletic groups, or school groups? How [...] contact Unable to assess 07/14/2021 2:29 PM DELPHI PROGRAMMER with someone who was confirmed or suspected to have Coronavirus / COVID-19? documented as of this encounter Miscellaneous Notes Telephone Encounter - Margaret Rendon RN - 07/14/2021 6:06 PM CST Patient called today to discuss ED visit on 07/09. Reports she was having SVT episodes for approximately 2 hours on 07/09. After two hours patient decided to go to the ED to be evaluated. While drivingto the ED patient reports her heart beating very fast and then a sudden change to her rhythm occurred. She reports it is something she has never felt before and it scared her. She is unsure if her heart stopped for a moment. Her arms and legs became numb and it took a period of time to feel normal again. No ED notes available to review. Patient indicated she went to the [facility] ED. She has recently been exposed to COVID and has tested negative. Offered virtual visit with PAULA to review ED visit and possible need for further intervention for her SVT episodes. Scheduled for video visit tomorrow at 12:30pm. Will reach out to hospital in the am to obtain records for visit. VJ Kennedy HI PROGRAMMER Telephone Encounter - Alexus Avalos RN - 07/10/2021 3:26 PM CST Pt called and LM that she was in the ER yesterday with SVT. States that that the rates had been up and down and off and on. States that she had chest pain for 2 hour and then on the way to the ER she stated that she felt like her heart stopped. LM for pt to call back to discuss. JNelsonRN HI PROGRAMMER documented in this encounter Plan of Treatment Upcoming Encounters Date Type Specialty Care Team Description 04/28/2022 Office Visit Family Practice Anthony Doe, ROVERT[address] [address] [place], [place] [phone] (Wo aldo) 05/03/2022 Office Visit Dermatology Neil Kent M D [address] [place], [place] [address] (Wo rk) 05/05/2022 Office Visit Optometry Yeny David, OD [address] [facility] [place] [phone] (Wo rk) 05/11/2022 Virtual Visit Pharm Diana Eckert , [facility] [address] [place], [place] [address] (Wo aldo) 05/14/2022 Office Visit Cardiology Livan Sharif MD [address] [place], [place] [address] (Wo rk) 05/31/2022 Office Visit Family Practice Valery Veronica , PAUcheC [address] [place] [phone] (Wo rk) documented as of this encounter Visit Diagnoses Not on filedocumented in this encounter Additional Health Concerns Infection Onset Date Last Indicated Resolved Time Rule Out COVID-19 07/13/2021 07/13/2021 07/14/2021 3:0 4 PM DELPHI PROGRAMMER Assessment Noted Time PHQ-9 Depression Total Score: 2 04/02/2021 10:19 AM CD T documented as of this encounter Care Teams Emergency Room Nurse Relationship Specialty Start Date End Date Marija Edgar APRN PCP - General Nurse Practitioner 04/30/20 AUTO TRANSMISSION SPECIALIST [address] [place] [address] Lita Oseguera Personal Advocate & 02/28/20 Liaison (PAL) Marija Edgar APRN Assigned PCP 06/08/20 AUTO TRANSMISSION SPECIALIST [address] [place] [address] Mynor Broussard MD Assigned Surgical 06/01/20 11/28/21 [address] [place] Provider [address] [place] [address] Keisha Dotson, Assigned Neuroscience 06/04/20 Provider [address] [place], [place] [address] Galo Burrell MD Assigned Heart and 10/05/20 04/02/22 [address] Vascular Provider [place], [place] [address] Diana Desir, [facility] Pharmacist Pharmacist 04/17/21 [address] [place], [place] [phone] Rain Galaviz Physician Web Retailer Dermatology 04/28/21 ROVERTO Paredes [address] [facility] [place], [place] [phone] Summer Lara MD Assigned OBGYN Provider 05/31/21 03/12/[address] [place], [place] [phone] Tavia Wyatt MD MD Dermatology 07/14/21 documented as of this encounter
--- OUTSIDE RECORDS SUMMARY | 2022-04-28 01:12 | XMS_ITS | Encounter Summary ---
:2000 Author Organization [facility] Address [address] [place] [address]. [place] [address] Care Team Providers Name Role Phone Lita Oseguera Unavailable Unavailable Marija Edgar APRN TRANSPORTATION SECURITY OFFICER Primary Care Provider [phone] Marija Edgar APRN TRANSPORTATION SECURITY OFFICER Unavailable Myonr Broussard MD Unavailable Keisha Dotson MD Unavailable Galo Burrell MD Unavailable Diana Desir [facility] Unavailable Rain Galaviz PA-C Unavailable [phone] Summer Lara MD Unavailable Encounter Details Date Type Department Care Team Description 05/25/2021 Orders Only [facility] Rey Sheppard er for screening Clinic Alberta Yun MD for other viral [address] [place] diseases [place], [place] GASTROINTESTINAL [address] [phone] [place] [address] Social History Tobacco Use Types Packs/Day Years [...] often do you attend oriental orthodox or judaism services? Never 09/22/2021 Do you [...] Office Visit Family Practice Anthony Doe PA-C [address] [place] [address] (Wo rk) 05/03/2022 Office Visit Dermatology Neil Kent M D [address] [place] [address] (Wo rk) 05/05/2022 Office Visit Optometry Yeny David, OD [address] [facility] [address] [place], [place] [phone] (Wo rk) 05/11/2022 Virtual Visit Pharm D Diana Desir , [facility] [address] [place], [place] [address] (Wo rk) 05/14/2022 Office Visit Cardiology Livan Sharif MD [address] [place], [place] [address] (Wo rk) 05/31/2022 Office Visit Family Practice Valery Veronica PA-C [address] [place], [place] [address] (Wo rk) documented as of this encounter Results Asymptomatic COVID-19 Virus (Coronavirus) by PCR Nose (06/23/2021 4:33 PM NUTRITION HELPER) [facility] Method Time Signature SARS CoV2 PCR Negative Negative, 06/24/2021 [facility] Testing sent to 12:45 PM LABORATORY reference lab. NUTRITION HELPER Results will be returned via unsolicited result Comment: NEGATIVE: SARS-CoV-2 (COVID-19) RNA not detected, presumed negative. Specimen Anatomical Collection Method Collection Time Receive d Time (Source) Location / / Volume Laterality Swab NASAL STRUCTURE / Non-blood 06/23/2021 4:33 PM 06/10 5:27 Unknown Collection / NUTRITION HELPER PM NUTRITION HELPER Unknown Narrative [facility] - 06/24/2021 12:45 PM NUTRITION HELPER Testing was performed using the Aptima SARS-CoV-2 Assay on the [employer] Instrument System. Additional in formation about this [...] COVID-19. This test was validated by the [facility] Infectious Diseases Diagnostic Laboratory. This lab oratory is certified under the Clinical Laboratory Improvement Amen dments of 1987 (CLIA-88) as qualified to perform high complexity lab oratory testing. Rey Sheppard MD LAB - MICRO GENERAL ORDERABL ES Performing Organization Address City/State/ZIP Code Phon e Number [facility] [place] [address] Diag. Lab [address] [facility], Room [address]297 [facility] Infectious [place], [place] [phone] Diseases Diagnostic [id number] Lab (IDDL) [address] [facility], Room [address]297 documented in this encounter Visit Diagnoses Diagnosis Encounter for screening for other viral diseases documented in this encounter Additional Health Concerns Assessment Noted Time PHQ-9 Depression Total Score: 2 04/02/2021 10:19 AM CD T documented as of this encounter Care Teams Shrub Planter Relationship Specialty Start Date End Date Marija Edgar APRN PCP - General Nurse Practitioner 04/30/20 TRANSPORTATION SECURITY OFFICER [address] [place] [address] Lita Oseguera Personal Advocate & 02/28/20 Liaison (PAL) Marija Edgar APRN Assigned PCP 06/08/20 TRANSPORTATION SECURITY OFFICER [address] [place] [address] Mynor Broussard MD Assigned Surgical 06/01/20 11/28/21 [address] [facility] Provider [address] [place] [address] Keisha Dotson, Assigned Neuroscience 06/04/20 MD Provider [address] [place], [place] [address] Galo Burrell MD Assigned Heart and 10/05/20 04/02/22 [address] [facility] [address] Vascular [place] [address] Diana Desir, [facility] Pharmacist Pharmacist 04/17/21 [address] [place], [place] [address] Rain Galaviz Physician Pot Feeder Dermatology 04/28/21 ROVERTO Paredes [address] [facility] [address] [place], [place] [phone] Summer Lara MD Assigned OBGYN Provider 05/24/21 05/30/[address] [place], [place] [phone] documented as of this encounter
--- OUTSIDE RECORDS SUMMARY | 2022-04-28 01:12 | XMS_ITS | Encounter Summary ---
:2000 Author Organization [facility] Address [address] [place] [address]. [place] [address] Care Team Providers Name Role Phone Lita Oseguera Unavailable Unavailable Marija Edgar APRN CREDIT AND COLLECTIONS ANALYST Primary Care Provider Marija Edgar APRN CREDIT AND COLLECTIONS ANALYST Unavailable Mynor Broussard MD Unavailable Keisha Dotson MD Unavailable Galo Burrell MD Unavailable Diana Desir [facility] Unavailable Rain Galaviz PA-C Unavailable [phone] Summer Lara MD Unavailable Reason for Visit Reason Comments Sick exposed to covid- found out today -- NOW [facility], slight cough and some SOB x 2 days-- took some Tylenol Encounter Details Date Type Department Care Team Description 07/13/2021 Office Visit [facility] Bassem Munoz, Fever , unspecified fever cause (Primary Dx); Urgent Care Tiago woods PA-C Cough; [address] [facility] Suspected 2019 novel coronav irus infection [place], [place] CARE [address] [phone] [place] [address] Social History Tobacco Use Types Packs/Day Years [...] How often do you attend adventist or zoroastrianism services? Never 09/22/2021 Do you belong to [...] in contact with Yes 07/13/2021 10:14 AM HAND DEICER ELEMENT WINDER someone who was confirmed or suspected to have Coronavirus / COVID-19? documented as of this encounter Last Filed Vital Signs Vital Sign Reading Time Taken Comments Blood Pressure 118/66 07/13/2021 11:34 AM HAND DEICER ELEMENT WINDER Pulse 92 07/13/2021 11:34 AM HAND DEICER ELEMENT WINDER Temperature 37 ??C (98.6 ??F) 07/13/2021 11:34 AM HAND DEICER ELEMENT WINDER Respiratory Rate 16 07/13/2021 11:34 AM HAND DEICER ELEMENT WINDER Oxygen Saturation 99% 07/13/2021 11:34 AM HAND DEICER ELEMENT WINDER Inhaled Oxygen Concentration - - Weight 88.5 kg (195 lb) 07/13/2021 11:34 AM HAND DEICER ELEMENT WINDER Height - - Body Mass Index 31.47 06/26/2021 9:12 AM HAND DEICER ELEMENT WINDER documented in this encounter Progress Notes Bassem Munoz PA-C - 07/13/2021 10:30 AM CST Chief Complaint Patient presents with ??? Sick exposed to covid- found out today -- [place] [facility], slight cough and some SOB x 2 days-- took some Tylenol ASSESSMENT/PLAN: Kim was seen today for sick. Diagnoses and all orders for this visit: Fever - Influenza A/B antigen Cough - Symptomatic; Yes; 07/11/2021 COVID-19 Virus (Coronavirus) by PCR Nose Suspected 2019 novel coronavirus infection Most likely COVID given exposure. Treat supportively. Bassem Munoz PA-C SUBJECTIVE: Kim is a 21 year old female who presents to urgent care with 3 to 4 days of sore throat, headache,cough and some slight shortness of breath today. No chest pain or wheeze. No difficulty talking in full sentences. Someone in the home tested positive for COVID-19. ROS: Pertinent ROS neg other than the symptoms noted above in the HPI. OBJECTIVE: BP 118/66 (BP Location: Right arm, Patient Position: Chair, Cuff Size: Adult Regular) Pulse 92 Temp 98.6 ??F (37 ??C) (Oral) Resp 16 Wt 88.5 kg (195 lb) LMP 07/07/2021 SpO2 99% Yes BMI 31.47 kg/m?? GENERAL: healthy, alert and no distress EYES: Eyes grossly normal to inspection, PERRL and conjunctivae and sclerae normal RESP: lungs clear to auscultation - no rales, rhonchi or wheezes DIAGNOSTICS No results found for any visits on 07/13/21. Current Outpatient Medications Medication ??? betamethasone dipropionate (DIPROSONE) 0.05 % external cream ??? levETIRAcetam (KEPPRA) 500 MG tablet ??? omeprazole (PRILOSEC) [address] capsule ??? Vit-Fe Fumarate-FA ( MULTIVITAMIN W/IRON) 27-0.8 MG tablet ??? sertraline (ZOLOFT) 100 MG tablet No current facility-administered medications for this visit. Patient Active Problem List Diagnosis ??? 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 Heart Disease Maternal Grandfather ??? Brain Tumor Sister Social History Tobacco Use ??? Smoking status: Former Smoker Packs/day: 1.00 Types: Other Quit date: 12/07/2019 Years since quittin.6 ??? Smokeless tobacco: Never Used Substance Use Topics ??? Alcohol use: Not Currently The plan of care was discussed with the patient. They understand and agree with the course of treatment prescribed. A printed summary was given including instructions and medications. The use of e[employer]Centaur dictation services may have been used to construct the content in this note; any grammatical or spelling errors are non- intentional. Please contact the author of this note directly if you are in need of any clarification. DEICER ELEMENT WINDER documented in this encounter Plan of Treatment Upcoming Encounters Date Type Specialty Care Team Description 04/28/2022 Office Visit [facility] Anthony Doe PA-C [address] [place], [place] [phone] (Wo rk) 05/03/2022 Office Visit Dermatology Neil Kent M D [address] [place], [place] [phone] (Wo rk) 05/05/2022 Office Visit Optometry Yeny David, OD [address] [facility] [place] [address] (Wo rk) 05/11/2022 Virtual Visit Pharm D Diana Desir , [facility] [address] [place], [place] [address] (Wo rk) 05/14/2022 Office Visit Cardiology Livan Sharif MD [address] [facility] [address] [place], [place] [address] (Wo rk) 05/31/2022 Office Visit [facility] Valery Veronica PA-C [address] [place], [place] [address] (Wo rk) documented as of this encounter Procedures Procedure Name Priority Date/Time Associated Diagnosis Comme nts COVID-19 VIRUS Routine 07/13/2021 11:34 AM Cough Result s for this (CORONAVIRUS) BY HAND DEICER ELEMENT WINDER procedure a re in PCR the results section. INFLUENZA A/B Routine 07/13/2021 11:34 AM Fever, unspecified R esults for this ANTIGEN HAND DEICER ELEMENT WINDER fever cause procedure are i n the results section. documented in this encounter Results Symptomatic; Yes; 07/11/2021 COVID-19 Virus (Coronavirus) by PCR Nose (07/13/2021 11:34 AM HAND DEICER ELEMENT WINDER) [facility] Method Time Signature SARS CoV2 PCR Negative Negative, 07/14/2021 [facility] Testing sent to 3:04 PM HAND DEICER ELEMENT WINDER LABORATORY reference lab. Results will be returned via unsolicited result Comment: NEGATIVE: SARS-CoV-2 (COVID-19) RNA not detected, presumed negative. Specimen Anatomical Collection Method Collection Time Receive d Time (Source) Location / / Volume Laterality Swab NASAL STRUCTURE / Non-blood 07/13/2021 11:34 2021 Unknown Collection / AM HAND DEICER ELEMENT WINDER 11:58 AM HAND DEICER ELEMENT WINDER Unknown Narrative [facility] - 07/14/2021 3:[address] Testing was performed using the candy SARS-CoV-2 assay on the candy Questetra0 System. This test should be ordered for [...] This hang t was validated by the [facility] Infectious Diseases Diag nostic Laboratory. This laboratory is certified under the [facility] Laboratory Improvement Amendments of 1988 (CLIA-88) as qualifie d to perform high and/or moderate complexity laboratory testing. Rebecca Rucker MD LAB - MICRO [facility] AL ORDERABLES Performing Organization Address City/State/ZIP Code Phon e Number [facility] [place] [place] [address] Diag. Lab [address] [facility], Room [address] [facility] Infectious [place], [place] [phone] Diseases Diagnostic [id number], [facility] Lab (IDDL) [address] [facility], Room [address]297 Influenza A/B antigen (07/13/2021 11:34 AM HAND DEICER ELEMENT WINDER) Analysis Performed At Patho logist Time Signature Influenza A Negative Negative 07/13/2021 [facility] antigen 12:31 PM HAND DEICER ELEMENT WINDER Influenza B Negative Negative 07/13/2021 [facility] antigen 12:31 PM HAND DEICER ELEMENT WINDER Specimen Anatomical Collection Method Collection Time Receive d Time (Source) Location / / Volume Laterality Swab NASAL STRUCTURE / Non-blood 07/13/2021 11:34 2021 Unknown Collection / AM HAND DEICER ELEMENT WINDER 11:58 AM HAND DEICER ELEMENT WINDER Unknown Narrative LABORATORY - 07/13/2021 12:31 PM HAND DEICER ELEMENT WINDER Test results must be correlated with cli nical data. If necessary, results should be confirmed by a molecular assay or viral culture. Rebecca Rucker MD LAB - MICRO GENER AL ORDERABLES Performing Organization Address City/State/ZIP Code [place] [phone] Lab [address] [facility] Lab (no room number, 1st floor of clinic) [place] [address], [facility] [address] [facility] Lab (no room number, 1st floor of clinic) documented in this encounter Visit Diagnoses Diagnosis Fever, unspecified fever cause - Primary Cough Suspected 2018 novel coronavirus infecti on documented in this encounter Additional Health Concerns Assessment Noted Time PHQ-9 Depression Total Score: 2 04/02/2021 10:19 AM CD T documented as of this encounter Care Teams Mobile Security Architect Relationship Specialty Start Date End Date Marija Edgar APRN PCP - General Nurse Practitioner 04/30/20 CREDIT AND COLLECTIONS ANALYST [address] [place] [address] Lita Oseguera Personal Advocate & 02/28/20 Liaison (PAL) Marija Edgar APRN Assigned PCP 06/08/20 CREDIT AND COLLECTIONS ANALYST [address] [place] [address] Mynor Broussard MD Assigned Surgical 06/01/20 11/28/21 [address] Provider [facility] [place] [address] Keisha Doston, Assigned Neuroscience 06/04/20 MD Provider [address] [place], [place] [address] Galo Burrell MD Assigned Heart and 10/05/20 04/02/22 [address] [facility] [address] Vascular Provider [place], [place] [address] Diana Desir, [facility] Pharmacist Pharmacist 04/17/21 [address] [place] [address] Rain Galaviz Physician Informatics Application Analyst Dermatology 04/28/21 [facility]O Paredes [address] [place] [address] Summer Lara MD Assigned OBGYN Provider 05/31/21 03/12/[address] [place], [place] [address] documented as of this encounter
--- OUTSIDE RECORDS SUMMARY | 2022-04-28 01:13 | XMS_ITS | Encounter Summary ---
:2000 Author Organization [facility] Address [address] [place] [address] Care Team Providers Name Role Phone Lita Oseguera Unavailable Unavailable Marija Edgar APRN ONCOLOGY PHYSICIAN Primary Care Provider [phone] Chanelle Mccann APRN CNM Unavailable + Marija Edgar APRN ONCOLOGY PHYSICIAN Unavailable Mynor Broussard MD Unavailable Keisha Dotson MD Unavailable Galo Burrell MD Unavailable Encounter Details Date Type Department Care Team Description 04/04/2021 Travel Social History Tobacco Use Types Packs/Day [...] How often do you attend christian or jainism services? Never 09/22/2021 Do you [...] been in contact with No / Unsure 04/04/2021 2:57 PM CDT someone who was confirmed or suspected to have Coronavirus / COVID-19? documented as of this encounter Plan of Treatment Upcoming Encounters Date Type Specialty Care Team Description 04/28/2022 Office Visit Family Practice Anthony Doe, [place] [address] [place], [place] [phone] (Wo rk) 05/03/2022 Office Visit Dermatology Neil Kent M D [address] [place], [place] [address] (Wo rk) 05/05/2022 Office Visit Optometry Yeny David, OD [address] [facility] [place] [address] (Wo rk) 05/11/2022 Virtual Visit Pharm D Diana Desir , [facility] [address] [place], [place] [address] (Jefferson carlson) 05/14/2022 Office Visit Cardiology Livan Sharif MD [address], [place] [address] [place] [address] (Wo rk) 05/31/2022 Office Visit Family Practice Valeyr Veronica , PA-C [address] [place], [place] [address] (Wo rk) documented as of this encounter Visit Diagnoses Not on filedocumented in this encounter Additional Health Concerns Assessment Noted Time PHQ-9 Depression Total Score: 2 04/02/2021 10:19 AM CD T documented as of this encounter Care Teams Beer Runner Relationship Specialty Start Date End Date Marija Edgar APRN PCP - General Nurse Practitioner 04/30/20 ONCOLOGY PHYSICIAN [address] [place] [address] Lita Oseguera Personal Advocate & 02/28/20 Liaison (PAL) Chanelle Mccann Assigned OBGYN Provider 05/02/20 05/09/21 [place] [address] [address] [facility] [address] [place], [place] [address] Marija Edgar APRN Assigned PCP 06/08/20 ONCOLOGY PHYSICIAN [address] [place], [place] [phone] Mynor Broussard MD Assigned Surgical 06/01/20 11/28/21 [address] [facility] Provider [address] [place] [address] Mauri, Assigned Neuroscience 06/04/20 MD Keisha Provider [address] [place] [address] Galo Burrell MD Assigned Heart and 10/05/20 04/02/22 [address] Vascular Provider [address] [place] [address] documented as of this encounter
--- OUTSIDE RECORDS SUMMARY | 2022-04-28 01:13 | XMS_ITS | Encounter Summary ---
:2000 Author Organization [facility] Address [address] [place] [address]. [place] [address] Care Team Providers Name Role Phone Lita Oseguera Unavailable Unavailable Marija Edgar APRN J2EE APPLICATION DEVELOPER Primary Care Provider [phone] Chanelle Mccann APRN CNM Unavailable + Marija Edgar APRN J2EE APPLICATION DEVELOPER Unavailable Mynor Broussard MD Unavailable Keisha Dotson MD Unavailable Galo Burrell MD Unavailable Diana Desir [facility] Unavailable Reason for Visit Reason Comments Medication Therapy Management Med Therapy Management (Routine) - Closed Specialty Diagnoses / Procedures Referred By Contact Refer red To Contact Pharmacist Diagnoses Moderate major depression (H) KALYN (generalized anxiety disorder) Anthony Doe, [facility] [address] [address] Phone: Referral ID Status Reason Start Date Expiration Date Visits Requ ested Visits Authorized [id number] Closed 04/02/2021 04/02/2022 1 1 Encounter Details Date Type Department Care Team Description 04/17/2021 Virtual Visit [facility] Anthony Doe PA-C [address] [place] [address] Encounter for pharmacogenetic testing (Jama soler Dx); [facility] Diana Stanislav, [facility] [address] [place] [address] 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 Never 09/22/2021 Do you [...] been in contact with No / Unsure 04/17/2021 9:40 AM CDT someone who was confirmed or suspected to have Coronavirus / COVID-19? documented as of this encounter Patient Instructions Patient InstructionsWDiana nuñez RPH - 04/17/2021 1:30 PM CDT Recommendations from today's MTM visit: MTM (medication therapy management) is a service provided by a clinical pharmacist designed to help you get the most of out of your medicines. Today we reviewed what your medicines are for, how to know if they are working, that your medicines are safe and how to make your medicine regimen as easy as possible. 1. No medications at this time. May consider switching sertraline to venlafaxine. It was great to speak with you today. I value your experience and would be very thankful for your time with providing feedback on our clinic survey. You may receive a survey via email or text message in the next few days. To schedule another MTM appointment, please call the clinic directly or you may call the MTM scheduling line at [phone] or toll-free at . My Clinical Pharmacist's contact information: Please feel free to contact me with any questions or concerns you have. metatarsal documented in this encounter Progress Notes Diana Desir RPH - 04/17/2021 1:30 PM CDT Medication Therapy Management (MTM) Encounter ASSESSMENT: Medication Adherence/Access: No issues identified Pharmacogenetic Results: GeneSight testing conducted and reported on 04/06/21. Select PGX Results: (see PDF report in chart documents for more detailed results) Pharmacokinetic Gene Variants Gene Phenotype Notable Medications Impacted CYP2C9 Intermediate Metabolizer fluoxetine MTHFR Reduced Conversion Pharmacodynamic Gene Variants Gene Phenotype Notable Medications Impacted SLC6A4 Intermediate Response Sertraline and other SSRIs ADRA2A Moderately Reduced Response Anxiety/Depression: Stable, continue to monitor. Discussion on sertraline vs trialing SNRIs such as venlafaxine or duloxetine for anxiety and risks during . GERD: stable Psoriasis: stable PLAN: 1. No medication changes at this time. Will discuss venlafaxine more next week per patient preference. Follow-up: Return in about 1 week (around 04/24/2021) for Medication Therapy Management Pharmacist. SUBJECTIVE/OBJECTIVE: Kim Johnson is a 20 year old female called for an initial visit. She was referred to me from [facility] [place]. Reason for visit: NanoICE pharmacogenetic testing result review. Allergies/ADRs: None Past Medical History: Reviewed in chart Tobacco: She reports that she quit smoking about 16 months ago. Her smoking use included other. She smoked 1.00 pack per day. She has never used smokeless tobacco. Alcohol: not currently using Medication Adherence/Access: no issues reported Pharmacogenetic Results: Pharmacogenetic testing was ordered to assist in the treatment of depression and anxiety (see below). See PDF report in laboratory tab for complete list of pharmacogenetic results. Anxiety/Depression: Current medications include: Sertraline 150mg once daily. Been on sertraline since high school, works okay but obessive about certain things. Sertraline doesn't work as well as it should. High anxiety. Overthinks a lot, worries a lot. More anxiety, not a very depressed person. Anxiety surprisingly to her as improved since breast feeding. Past med trial: Buspirone (made her feel very weird, suicidal thoughts she thinks) PHQ-9 SCORE 09/29/2020 03/02/2021 04/02/2021 PHQ-9 Total Score MyChart 6 (Mild depression) 2 (Minimal depression) 2 (Minimal depression) PHQ-9 Total Score 6 2 2 KALYN-7 SCORE 09/29/2020 03/02/2021 04/02/2021 Total Score 12 (moderate anxiety) 4 (minimal anxiety) 4 (minimal anxiety) Total Score 14 4 4 GERD: Current medications include: Prilosec (omeprazole) 40 mg every other day. Pt reports no current symptoms. Patient feels that current regimen is effective. Psoriasis: Patient using hydrocortisone 0.2% cream as needed. Hydrocortisone not working well, seeing dermatology. Today's Vitals: none I spent 45 minutes with this patient today. All changes were made via collaborative practice agreement with Marija Edgar APRN CNP. A copy of the visit note was provided to the patient's primary careprovider. The patient was sent via [email or web address] a summary of these recommendations. Diana Desir PharmD Medication Therapy Management Provider, [facility] Pager: [phone] Telemedicine Visit Details Type of service: Telephone visit Start Time: 1:31 PM End Time: 2:15 PM Originating Location (patient location): Home Distant Location (provider location): [facility] Medication Therapy Recommendations No medication therapy recommendations to display documented in this encounter Plan of Treatment Upcoming Encounters Date Type Specialty Care Team Description 04/28/2022 Office Visit Family Practice Anthony Doe, [place] [address] [place], [place] [phone] (Jefferson carlson) 05/03/2022 Office Visit Dermatology Neil Kent M D [address] [place], [place] [address] (Jefferson carlson) 05/05/2022 Office Visit Optometry Yeny David, OD [address] [facility] [address] [place] [phone] (Wo rk) 05/11/2022 Virtual Visit Pharm D Diana Desir [facility] [address] [place], [place] [address] (Jefferson carlson) 05/14/2022 Office Visit Cardiology Livan Sharif MD [address] [facility] [address] [place] [address] (Jefferson carlson) 05/31/2022 Office Visit Family Practice Valery Veronica PA-C [address] [place], [place] [phone] (Wo rk) documented as of this encounter Visit Diagnoses Diagnosis Encounter for pharmacogenetic testing - Primary 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) KALYN (generalized anxiety disorder) Generalized anxiety disorder Moderate major depression (H) Major depressive disorder, single episod e, moderate Gastroesophageal reflux disease with eso phagitis without hemorrhage Psoriasis Other psoriasis documented in this encounter Additional Health Concerns Assessment Noted Time PHQ-9 Depression Total Score: 2 04/02/2021 10:19 AM CD T documented as of this encounter Care Teams Manager Dental Relationship Specialty Start Date End Date Marija Edgar APRN PCP - General Nurse Practitioner 04/30/20 J2EE APPLICATION DEVELOPER [address] [place] [address] Lita Oseguera Personal Advocate & 02/28/20 Liaison (PAL) Chanelle Mccann Assigned OBGYN Provider 05/02/20 05/09/21 [place] [address] [facility] [address] [place], [place] [address] Marija Edgar APRN Assigned PCP 06/08/20 J2EE APPLICATION DEVELOPER [address] [place], [place] [phone] Mynor Broussard MD Assigned Surgical 06/01/20 11/28/[address] [facility] Provider [address] [place], [place] [address] Keisha Dotson, Assigned Neuroscience 06/04/[address] [place] [address] Galo Burrell MD Assigned Heart and 10/05/20 04/02/22 [address] Vascular Provider [place] [address] Diana Desir, [facility] Pharmacist Pharmacist 04/17/21 [address] [place] [address] documented as of this encounter
--- OUTSIDE RECORDS SUMMARY | 2022-04-28 01:13 | XMS_ITS | Encounter Summary ---
:2000 Author Organization [facility] Address [address] [place] [address] Care Team Providers Name Role Phone Lita Oseguera Unavailable Unavailable Marija Edgar APRN TORPEDO SHOOTER Primary Care Provider [phone] Chanelle Mccann APRN CNM Unavailable + Marija Edgar APRN TORPEDO SHOOTER Unavailable Mynor Broussard MD Unavailable Keisha Dotson MD Unavailable Galo Burrell MD Unavailable Reason for Referral Diagnostic Procedure Outpatient (Routine) - Closed Specialty Diagnoses / Procedures Referred By Contact Refer red To Contact Gastroenterology Diagnoses Black stool Anthony Medina PA-C [address] [place] [address] Phone: Fax: Referral ID Status Reason Start Date Expiration Date Visits Requ ested Visits Authorized [id number] Closed 04/07/2021 04/07/2022 1 1 Scheduling Instructions If EUS or ERCP is selected, it requires clinical review prior to scheduling. ed Therapy Management (Routine) - Closed Specialty Diagnoses / Procedures Referred By Contact Refer red To Contact Pharmacist Diagnoses Moderate major depression (H) KALYN (generalized anxiety disorder) Anthony Medina PA-C [facility] [address] [place], [place] [address] [place] [address] Phone: Referral ID Status Reason Start Date Expiration Date Visits Requ ested Visits Authorized [id number] Closed 04/02/2021 04/02/2022 1 1 Reason for Visit Reason Comments genesight Imm/Inj Flu Shot Diarrhea Encounter Details Date Type Department Care Team Description 04/02/2021 Office Visit [facility] Anthony Medina Modera te major depression (H) (Primary Dx); Clinic [facility] KALYN (generalized anxiety disorder); [address] [place] [address] [address] Diarrhea, unspecified type; [place], [place] Black s tool; [id number] Screening for hyperlipidemia; [phone] Need for prophy lactic vaccination and inoculation against influenza (Work) Social History Tobacco Use Types Packs/Day [...] Sign Reading Time Taken Comments Blood Pressure 114/60 04/02/2021 10:24 AM CDT Pulse 90 04/02/2021 10:24 AM CDT Temperature 36.9 ??C (98.4 ??F) 04/02/2021 10:24 AM CDT Respiratory Rate - - Oxygen Saturation 98% 04/02/2021 10:24 AM CDT Inhaled Oxygen Concentration - - Weight 91.4 kg (201 lb 7 oz) 04/02/2021 10:24 AM CDT Height - - Body Mass Index 32.51 03/06/2021 4:10 PM CDT documented in this encounter Progress Notes Anthony Medina PA-C - 04/02/2021 10:20 AM CDT Assessment & Plan Moderate major depression (H) Genesight testing done. - MED THERAPY MANAGE REFERRAL - GeneSight MTHFR (You must click the lab guide link in the reference section below and complete the forms in the associated links section. Once complete, print the forms and give to clinic intranet support to complete pharmacogenetic testing.); Future - GeneSight Psychotropic (You must click the lab guide link in the reference section below and complete the forms in the associated links section. Once complete, print the forms and give to clinic intranet support to complete pharmacogenetic testing.); Future KALYN (generalized anxiety disorder) Genesight testing done. - MED THERAPY MANAGE REFERRAL - GeneSight MTHFR (You must click the lab guide link in the reference section below and complete the forms in the associated links section. Once complete, print the forms and give to clinic intranet support to complete pharmacogenetic testing.); Future - GeneSight Psychotropic (You must click the lab guide link in the reference section below and complete the forms in the associated links section. Once complete, print the forms and give to clinic intranet support to complete pharmacogenetic testing.); Future Diarrhea, unspecified type Will check stool for blood as she may have peptic ulcer with black stools and chest pains that radiate around to axilla. Will also order stool testing. Did discuss that this is likely still constipation as diagnosed in urgent care and that if testing is normal, I recommend trying the Miralax. - Fecal colorectal cancer screen (FIT); Future - Ova and Parasite Exam Routine; Future - Enteric Bacteria and Virus Panel by LEON Stool; Future - Comprehensive metabolic panel (BMP + Alb, Alk Phos, ALT, AST, Total. Bili, TP); Future - Fecal colorectal cancer screen (FIT) - Ova and Parasite Exam Routine - Enteric Bacteria and Virus Panel by LEON Stool - Comprehensive metabolic panel (BMP + Alb, Alk Phos, ALT, AST, Total. Bili, TP) Black stool See above. - Fecal colorectal cancer screen (FIT); Future - Fecal colorectal cancer screen (FIT) Screening for hyperlipidemia - Lipid panel reflex to direct LDL Non-fasting; Future - Lipid panel reflex to direct LDL Non-fasting Need for prophylactic vaccination and inoculation against influenza - INFLUENZA VACCINE IM > 6 MONTHS VALENT IIV4 (AFLURIA/FLUZONE) BMI: Estimated body mass index is 32.51 kg/m?? as calculated from the following: Height as of 03/06/21: 1.676 m (5' 6). Weight as of this encounter: 91.4 kg (201 lb 7 oz). There are no Patient Instructions on file for this visit. No follow-ups on file. Anthony Medina PA-C [facility] JAMIE Alvarez is a 20 year old who presents for the following health issues HPI Diarrhea Onset/Duration: two weeks Description: Consistency of stool: watery, loose, mucousy, then sometimes marco like, sometimes hard stools that are difficult to pass Blood in stool: pt sometimes has noticed red in her stool and stools are sometimes dark black Number of loose stools past 24 hours: once Progression of Symptoms: same Accompanying signs and symptoms: Fever: no Nausea/Vomiting: no Abdominal pain: no Weight loss: no Episodes of constipation: YES History Ill contacts: no Recent use of antibiotics: no Recent travels: no Recent medication-new or changes(Rx or OTC): no Precipitating or alleviating factors: None Therapies tried and outcome: none Pain in left shoulder/axilla area after eating and at night. Went to ER and they told her that it was a pinched nerve. Warm, tingly, and sharp shooting pains. Also here for genesight testing, recommended by primary care provider. Review of Systems Constitutional, HEENT, cardiovascular, pulmonary, gi and gu systems are negative, except as otherwise noted. Objective BP 114/60 (BP Location: Right arm, Patient Position: Chair, Cuff Size: Adult Regular) Pulse 90 Temp 98.4 ??F (36.9 ??C) (Oral) Wt 91.4 kg (201 lb 7 oz) LMP 04/29/2020 SpO2 98% BMI 32.51 kg/m?? Body mass index is 32.51 kg/m??. Physical Exam GENERAL: healthy, alert and [...] hepatosplenomegaly, no masses and bowel sounds normal MS: no gross musculoskeletal defects noted, no edema SKIN: no suspicious lesions or rashes NEURO: Normal strength and tone, mentation intact and speech normal PSYCH: mentation appears normal, affect normal/bright Answers for HPI/ROS submitted by the patient on 04/02/2021 If you checked off any problems, how difficult have these problems made it for you to do your work, take care of things at home, or get along with other people?: Somewhat difficult PHQ9 TOTAL SCORE: 2 KALYN 7 TOTAL SCORE: 4 documented in this encounter Miscellaneous Notes Addendum Note - Anthony Medina PA-C - 04/02/2021 10:20 AM CDT Addended by: ANTHONY MEDINA on: 04/07/2021 07:20 AM Modules accepted: Orders documented in this encounter Plan of Treatment Upcoming Encounters Date Type Specialty Care Team Description 04/28/2022 Office Visit [facility] Anthony Medina PA-C [address] [place], [place] [phone] (Wo rk) 05/03/2022 Office Visit Dermatology Neil Kent M D [address] [place] [address] (Wo rk) 05/05/2022 Office Visit Optometry Yeny David, OD [address] [place] [address] (Wo rk) 05/11/2022 Virtual Visit Pharm D Diana Desir , [facility] [address] [place], [place] [address] (Wo rk) 05/14/2022 Office Visit Cardiology Livan Sharif MD [address] [place], [place] [address] (Wo rk) 05/31/2022 Office Visit Family [facility] Valery Veronica PA-C [address] [place], [place] [address] (Wo rk) Scheduled Orders Name Type Priority Associated Diagnoses Order S chedule GeneSight MTHFR (You must Lab Routine Moderate major Expected: 04/09/2021 click the lab guide link deprchuck ssion (H) (Approximate), in the reference section KALYN (generalized Expires: 04/02/2022 below and complete the forms anxiety diso rder) in the associated links section. Once complete, print the forms and give to clinic intranet support to complete pharmacogenetic testing.) GeneSight Psychotropic (You Lab Routine Moderate nathalie r Expected: 04/09/2021 must click the lab guide depre ssion (H) (Approximate), link in the reference KALYN (generalized Ex cristobal: 04/02/2022 section below and complete anxiety disord er) the forms in the associated links section. Once complete, print the forms and give to clinic intranet support to complete pharmacogenetic testing.) Scheduled Referrals Name Type Priority Associated Diagnoses Order S chedule MED THERAPY MANAGE Referral Routine: Next Moderate major Ordere d: REFERRAL available opening depression (H) 04/02/2021 KALYN (generalized anxiety disorder) Adult Gastro Ref - Referral Routine: Next Black stool Expected : Procedure Only available opening 04/07/20 21 (Approximate), Expires: 04/07/2022 documented as of this encounter Procedures Procedure Name Priority Date/Time Associated Diagnosis Comme nts FECAL COLORECTAL Routine 04/04/2021 3:10 Diarrhea, unspecified Results for this CANCER SCREEN FIT PM CDT type procedure are in Black stool the results section. ROUTINE PARASITOLOGY Routine 04/04/2021 3:10 Diarrhea, unspeci fied Results for this EXAM PM CDT type procedure are i n the results section. ENTERIC BACTERIA AND Routine 04/04/2021 3:09 Diarrhea, unspeci fied Results for this VIRUS PANEL BY LEON PM CDT type procedure are in STOOL the results section. LIPID REFLEX TO Routine 04/02/2021 11:04 Screening for Results for this DIRECT LDL PANEL AM CDT hyperlipidemia procedure are in the results section. COMPREHENSIVE Routine 04/02/2021 11:04 Diarrhea, unspecified R esults for this METABOLIC PANEL AM CDT type procedure ar e in the results section. documented in this encounter Results Ova and Parasite Exam Routine (04/04/2021 3:10 PM CDT) Analysis Performed At [facility] logist Time Signature OVA AND Negative Negative REINA 04/06/2021 [facility] PARASITE EXAM 3:43 PM CDT LABORATORY Comment: A single negative specimen does not rule out parasitic infection. Specimen Anatomical Collection Method Collection Time Receive d Time (Source) Location / / Volume Laterality Stool RECTAL CONTENTS / Non-blood 04/04/2021 3:10 PM 03/12 3:10 Unknown Collection / CDT PM CDT Unknown Narrative [facility] LAB[facility]AT[facility] - 04/06/2021 3:43 PM C DT Cryptosporidium, Cyclospora and Microspo ridia are not readily detected by this method. Anthony Medina PA-C LAB - MICRO GENERAL ORDERABL ES Performing Organization Address City/[facility] Phon e Number [facility] LABORATORY [facility] [place] [phone] Diag. Lab [address] [facility], [address] [facility] Infectious [place], [place] [phone] Diseases Diagnostic [id number], [facility] Lab (IDDL) [address] [facility], Room [address] Fecal colorectal cancer screen (FIT) (04/04/2021 3:10 PM CDT) Analysis Performed At Path logist Time Signature Occult Blood Negative Negative 04/05/2021 [facility] Screen FIT 7:07 PM CDT Specimen Anatomical Collection Method Collection Time Receive d Time (Source) Location / / Volume Laterality Stool RECTAL CONTENTS / Non-blood 04/04/2021 3:10 PM 03/12 3:10 Unknown Collection / CDT PM CDT Unknown Anthony Medina PA-C LAB - STOOLS ORDERABLES Performing Organization Address [facility] [place] Number [place] [address] [facility] [place] [place], [address] [place] [address], Lab [address], Room [address] Enteric Bacteria and Virus Panel by LEON Stool (04/04/2021 3:09 PM CDT) Patholo gist Method Time Signature Campylobacter Not Not 04/06/2021 [facility] group Detected Detected 8:26 AM CDT LABORATORY Salmonella Not Not 04/06/2021 [facility] species Detected Detected 8:26 AM CDT LABORATORY Shigella species Not Not 04/06/2021 [facility] Detected Detected 8:26 AM CDT LABORATORY Vibrio group Not Not 04/06/2021 [facility] Detected Detected 8:26 AM CDT LABORATORY Rotavirus Not Not 04/06/2021 [facility] Detected Detected 8:26 AM CDT LABORATORY Shiga toxin 1 Not Not 04/06/2021 [facility] gene Detected Detected 8:26 AM CDT LABORATORY Shiga toxin 2 Not Not 04/06/2021 [facility] gene Detected Detected 8:26 AM CDT LABORATORY Norovirus I and Not Not 04/06/2021 [facility] II Detected Detected 8:26 AM CDT LABORATORY Yersinia Not Not 04/06/2021 [facility] enterocolitica Detected Detected 8:26 AM CDT LABORATORY Specimen Anatomical Collection Method Collection Time Receive d Time (Source) Location / / Volume Laterality Stool RECTAL CONTENTS / Non-blood 04/04/2021 3:09 PM 03/12 3:10 Unknown Collection / CDT PM CDT Unknown Narrative [facility] - 04/06/2021 8:26 AM C DT Testing performed by multiplexed, qualit ative PCR using the FIGHTER Interactive Enteric Pathogens Nucleic Acid Test. Results jocelyn uld not be used as the sole basis for diagnosis, treatment or other patient ma nagement decisions. Positive results do not rule out co-infection with other organis ms that are not detected by this test and may not be the sole or definitive cause of p atient illness. Negative results in the setting of clinical illness compatible w ith gastroenteritis may be due to infection by pathogens that are not detected by th is test or non-infectious causes such as ulcerative colitis, irritable bowel synd maggy or Crohn's disease. Note: Shiga toxin producing E. coli (STEC) typically harbo r one or both genes that encode for Shiga toxins 1 and 2. Anthony Medina PA-C LAB - MICRO GENERAL ORDERABL ES Performing Organization Address City/State/ZIP Code Phon e Number [facility] [place] [address] Diag. Lab [address] [facility], [address] [facility] Infectious [place], [place] [phone] Diseases Diagnostic [id number], [facility] Lab (IDDL) [address] [facility], [address] Comprehensive metabolic panel (BMP + Alb, Alk Phos, ALT, AST, Total. Bili, TP) (04/02/2021 11:04 AM CDT) P athologist Signature Sodium 137 133 - 144 04/16/2021 [facility] mmol/L 9:10 AM CDT Potassium 4.0 3.4 - 5.3 04/16/2021 [facility] mmol/L 9:10 AM CDT Chloride 109 94 - 109 04/16/2021 [facility] mmol/L 9:10 AM CDT Carbon Dioxide 24 20 - 32 04/16/2021 [facility] (CO2) mmol/L 9:10 AM CDT Anion Gap 4 3 - 14 04/16/2021 [facility] mmol/L 9:10 AM CDT Urea Nitrogen 10 7 - 30 04/16/2021 [facility] mg/dL 9:10 AM CDT Creatinine 0.64 0.52 - 04/16/2021 [facility] 1.04 mg/dL 9:10 AM CDT Calcium 9.0 8.5 - 10.1 04/16/2021 [facility] mg/dL 9:10 AM CDT Comment: This is a corrected result. Pre vious result was 8.0 mg/dL on 04/03/2021 at 7:39 AM CDT Glucose 87 70 - 99 mg/dL 04/16/2021 9:10 AM CDT [facility] Alkaline Phosphatase 68 40 - 150 U/L 04/16/2021 9:10 AM CDT [facility] AST 20 0 - 45 U/L 04/16/2021 9:10 AM CDT [facility] ALT 46 0 - 50 U/L 04/16/2021 9:10 AM CDT [facility] Protein Total 7.0 6.8 - 8.8 g/dL 04/16/2021 9:10 AM CD T [facility] Albumin 3.5 3.4 - 5.0 g/dL 04/16/2021 9:10 AM CDT [facility] Bilirubin Total 0.2 0.2 - 1.3 mg/dL 04/16/2021 9:10 AM CDT [facility] GFR Estimate >90 >60 mL/min/1.73m2 04/16/2021 9:10 AM CDT [facility] Comment: As of January 18, 2021, eGFR is ca lculated by the CKD-EPI creatinine equation, without race adjustment. eGFR can be inf luenced by muscle mass, exercise, and diet. The reported eGFR is an estimation only and is only applicable if the renal function is stable. Specimen Anatomical Collection Method / Collection Time Recei chelsie Time (Source) Location / Volume Laterality Blood STRUCTURE OF RIGHT Venipuncture / 04/02/2021 11:04 UPPER LIMB / Unknown AM CDT 11:04 AM CDT Unknown Anthony Medina PA-C LAB - BLOOD ORDERABLES Performing Organization Address City/State/ZIP Code Phon e Number [facility] [place], [place] [phone] [facility] [address] [place] [address] Lab (no room number, 1st floor of clinic) [facility] [place], [place] [phone] [facility] [phone] [address] Lab (no room number, 1st floor of clinic) (ABNORMAL) Lipid panel reflex to direct LDL Non-fasting (04/02/2021 11:04 AM CDT) [facility] gist Method Time Signature Cholesterol 203 (H) <200 04/03/2021 [facility] mg/dL 7:39 AM CDT Triglycerides 86 <150 04/03/2021 [facility] mg/dL 7:39 AM CDT Direct Measure 39 (L) >=50 04/03/2021 [facility] HDL mg/dL 7:39 AM CDT LDL Cholesterol 147 (H) <=100 04/03/2021 [facility] Calculated mg/dL 7:39 AM CDT Non HDL 164 (H) <130 04/03/2021 [facility] Cholesterol mg/dL 7:39 AM CDT Patient Fasting > Yes 04/03/2021 [facility] RY 8hrs? 7:39 AM CDT Specimen Anatomical Collection Method / Collection Time Recei chelsie Time (Source) Location / Volume Laterality Blood STRUCTURE OF RIGHT Venipuncture / 04/02/2021 11:04 UPPER LIMB / Unknown AM CDT 11:04 AM CDT Unknown Narrative [facility] - 04/03/2021 7:39 AM CDT Cholesterol Desirable: ??<200 mg/dL Triglycerides Normal: ??Less than 150 mg/dL Borderline High: ??150-199 mg/dL High: ??200-499 mg/dL Very High: ??Greater than or equal to 50 0 mg/dL Direct Measure HDL Female: ??Greater than or equal to 50 mg /dL Male: ??Greater than or equal to 40 mg/d L LDL Cholesterol Desirable: ??<100mg/dL Above Desirable: ??100-129 mg/dL Borderline High: ??130-159 mg/dL High: ??160-189 mg/dL Very High: ??>= 190 mg/dL Non HDL Cholesterol Desirable: ??130 mg/dL Above Desirable: ??130-159 mg/dL Borderline High: ??160-189 mg/dL High: ??190-219 mg/dL Very High: ??Greater than or equal to 22 0 mg/dL Anthony Medina PA-C LAB - BLOOD ORDERABLES Performing Organization Address City/State/ZIP Code Phon e Number [facility] [place], [place] [phone] [facility] [address] [place] [address] Lab (no room number, 1st floor of clinic) [facility] [place], [place] [phone] Clinic - [address] [facility] [address] Lab (no room number, 1st floor of clinic) documented in this encounter Visit Diagnoses Diagnosis Moderate major depression (H) - Primary Major depressive disorder, single episod e, moderate KALYN (generalized anxiety disorder) Generalized anxiety disorder Diarrhea, unspecified type Black stool Nonspecific abnormal finding in stool co ntents Screening for hyperlipidemia Screening for lipoid disorders Need for prophylactic vaccination and in oculation against influenza documented in this encounter Additional Health Concerns Assessment Noted Time PHQ-9 Depression Total Score: 2 04/02/2021 10:19 AM CD T documented as of this encounter Care Teams Wind Turbine Design Engineer Relationship Specialty Start Date End Date Marija Edgar APRN PCP - General Nurse Practitioner 04/30/20 [employer]ER [address] [place] [address] Lita Oseguera Personal Advocate & 02/28/20 Liaison (PAL) Chanelle Mccann Assigned OBGYN Provider 05/02/20 05/09/21 [place] [address] [place], [address] [place], [place] [address] Marija Edgar APRN Assigned PCP 06/08/20 [employer]O [employer]ER [address] [place], [place] [phone] Mynor Broussard MD Assigned Surgical 06/01/20 11/28/[address] [place] Provider [address] [place] [phone] Mauri, Assigned Neuroscience 06/04/20 MD Keisha Provider [address] [place], [place] [address] Galo Burrell MD Assigned Heart and 10/05/20 04/02/[address] Vascular Provider [address] [place] [address] documented as of this encounter
--- OUTSIDE RECORDS SUMMARY | 2022-04-28 01:13 | XMS_ITS | Encounter Summary ---
:2000 Author Organization [facility] Address [address] [place] [address] Care Team Providers Name Role Phone Lita Oseguera Unavailable Unavailable Marija Edgar APRN MARKET MASTER Primary Care Provider [phone] Chanelle Mccann APRN CNM Unavailable + Marija Edgar APRN MARKET MASTER Unavailable Mynor Broussard MD Unavailable Keisha Dotson MD Unavailable Galo Burrell MD Unavailable Encounter Details Date Type Department Care Team Description 04/16/2021 Travel Social History Tobacco Use Types Packs/Day [...] How often do you attend voodoo or yarsani services? Never 09/22/2021 Do you [...] been in contact with No / Unsure 04/16/2021 5:55 PM CDT someone who was confirmed or suspected to have Coronavirus / COVID-19? documented as of this encounter Plan of Treatment Upcoming Encounters Date Type Specialty Care Team Description 04/28/2022 Office Visit Family Practice Anthony Doe, R[place]ERT[place] [address] [place], [place] [phone] (Wo rk) 05/03/2022 Office Visit Dermatology Neil Kent M D [address] [place], [place] [address] (Wo rk) 05/05/2022 Office Visit Optometry Yeny David, OD [address] [facility] [place] [address] (Wo rk) 05/11/2022 Virtual Visit Pharm D Diana Desir , [facility] [address] [place], [place] [address] (Jefferson carlson) 05/14/2022 Office Visit Cardiology Livan Sharif MD [address], [address] [place] [address] (Wo rk) 05/31/2022 Office Visit Family Practice Valery Veronica , PA-C [address] [place], [place] [address] (Wo rk) documented as of this encounter Visit Diagnoses Not on filedocumented in this encounter Additional Health Concerns Assessment Noted Time PHQ-9 Depression Total Score: 2 04/02/2021 10:19 AM CD T documented as of this encounter Care Teams Glass Presser Relationship Specialty Start Date End Date Marija Edgar APRN PCP - General Nurse Practitioner 04/30/20 MARKET MASTER [address] [place] [address] Lita Oseguera Personal Advocate & 02/28/20 Liaison (PAL) Chanelle Mccann Assigned OBGYN Provider 05/02/20 05/09/21 [place] [address] [address] [facility] [address] [place], [place] [address] Marija Edgar APRN Assigned PCP 06/08/20 MARKET MASTER [address] [place], [place] [phone] Mynor Broussard MD Assigned Surgical 06/01/20 11/28/21 [address] [facility] Provider [address] [place] [address] Mauri, Assigned Neuroscience 06/04/20 MD Keisha Provider [address] [place] [address] Galo Burrell MD Assigned Heart and 10/05/20 04/02/22 [address] Vascular Provider [address] [place] [address] documented as of this encounter
--- OUTSIDE RECORDS SUMMARY | 2022-04-28 01:13 | XMS_ITS | Encounter Summary ---
:2000 Author Organization [place] Address [address] [place] [address] Care Team Providers Name Role Phone Lita Oseguera Unavailable Unavailable Marija Edgar APRN MEDICAL ASSISTANT INTERNAL MEDICINE Primary Care Provider [phone] Chanelle Mccann APRN CNM Unavailable + Marija Edgar APRN MEDICAL ASSISTANT INTERNAL MEDICINE Unavailable Mynor Broussard MD Unavailable Keisha Dotson MD Unavailable Galo Burrell MD Unavailable Diana Desir [facility] Unavailable Encounter Details Date Type Department Care Team Description 04/17/2021 Travel Social History Tobacco Use Types Packs/Day [...] How often do you attend episcopalian or mosque services? Never 09/22/2021 Do you [...] Office Visit Family Practice Anthony Doe, ROVERTO [address] [place] [address] (Wo rk) 05/03/2022 Office Visit Dermatology Neil Kent M D 500 [place] [address] (Wo rk) 05/05/2022 Office Visit Optometry Yeny David, OD [address] [facility] [address] [place] [phone] (Wo rk) 05/11/2022 Virtual Visit Pharm D Diana Desir , [facility] [address] [place] [address] (Wo rk) 05/14/2022 Office Visit Cardiology Livan Sharif MD [address] [facility] [address] [place] [address] (Wo rk) 05/31/2022 Office Visit Family Practice Valery Veronica , PA-C 909 [place], [place] [address]22875 (Wo rk) documented as of this encounter Visit Diagnoses Not on filedocumented in this encounter Additional Health Concerns Assessment Noted Time PHQ-9 Depression Total Score: 2 04/02/2021 10:19 AM CD T documented as of this encounter Care Teams Market Development Trainer Relationship Specialty Start Date End Date Marija Edgar APRN PCP - General Nurse Practitioner 04/30/20 MEDICAL ASSISTANT INTERNAL MEDICINE [address] [place], [place] [phone] Lita Oseguera Personal Advocate & 02/28/20 Liaison (PAL) Chanelle Mccann Assigned OBGYN Provider 05/02/20 05/09/21 [place] [address] [address] [facility] [address] [place] [address] Marija Edgar APRN Assigned PCP 06/08/20 MEDICAL ASSISTANT INTERNAL MEDICINE [address] [place] [address] Mynor Broussard MD Assigned Surgical 06/01/20 11/28/21 [address] [facility] Provider [address] [place], [place] [address] Keisha Dotson, Assigned Neuroscience 06/04/20 MD Provider 9 [place], [place] [address]245 Galo Burrell MD Assigned Heart and 10/05/20 04/02/22 [address] Vascular Provider [place] [address] Diana Desir, [facility] Pharmacist Pharmacist 04/17/21 [address] [place], [place] [phone] documented as of this encounter
--- OUTSIDE RECORDS SUMMARY | 2022-04-28 01:13 | XMS_ITS | Encounter Summary ---
:2000 Author Organization [place] Address [address] [place] [address]. [place] [address] Care Team Providers Name Role Phone Lita Oseguera Unavailable Unavailable Marija Edgar APRN RECENTERER Primary Care Provider [phone] Chanelle Mccann DEPLOYMENT SPECIALIST CN Unavailable + Marjia Edgar APRN RECENTERER Unavailable Mynor Broussard MD Unavailable Keisha Dotson MD Unavailable Galo Burrell MD Unavailable Diana Desir [facility] Unavailable Rain Galaviz PA-C Unavailable Encounter Details Date Type Department Care Team Description 04/28/2021 Telephone [facility] Marija Edgar APRN [place] RECENTERER [phone] [place] [address] (Wo rk) Social History Tobacco [...] How often do you attend sabianism or gnosticism services? Never 09/22/2021 Do you belong to [...] you been in contact Unable to assess 04/28/2021 10:52 AM CDT with someone who was confirmed or suspected to have Coronavirus / COVID-19? documented as of this encounter Miscellaneous Notes Telephone Encounter - Lita Oseguera - 04/28/2021 10:48 AM CDT Return call to Pt regarding dermatology referral. Pt stated that she had not yet heard from them in regards to apt and was wanting the phone number to call them. Pt stated that since seeing Marija it has gotten worse on her hands, which are now bleeding, in her hair line, elbows and her knees. I informed Pt that I would let Provider know and see if there was something we could do while she waited to get into dermatology. Will watch for apt to be scheduled. Pt denied any further questions or concerns. Hilda Troncoso-EM[facility] Health Guide, SB 4 PAL documented in this encounter Plan of Treatment Upcoming Encounters Date Type Specialty Care Team Description 04/28/2022 Office Visit Family Practice Anthony Doe, PAUcheC [address] [place], [place] [phone] (Wo rk) 05/03/2022 Office Visit Dermatology Neil Kent M D 500 [place], [place] 358195 (Wo rk) 05/05/2022 Office Visit Optometry Yeny David, OD [address] [facility] [address] [place], [place] [phone] (Wo rk) 05/11/2022 Virtual Visit Pharm D Diana Desir , [facility] [address] [place], [place] [phone] (Wo rk) 05/14/2022 Office Visit Cardiology Livan Sharif MD [address] [facility] [address] [place], [place] [address]45[address] (Wo rk) 05/31/2022 Office Visit Family Practice Valery Veronica PAUcheC 909 [place], [place] 400395 (Wo rk) documented as of this encounter Visit Diagnoses Not on filedocumented in this encounter Additional Health Concerns Assessment Noted Time PHQ-9 Depression Total Score: 2 04/02/2021 10:19 AM CD T documented as of this encounter Care Teams Shucker Relationship Specialty Start Date End Date Marija Edgar APRN PCP - General Nurse Practitioner 04/30/[address] [place] [address] Lita Oseguera Personal Advocate & 02/28/20 Liaison (PAL) Chanelle Mccann Assigned OBGYN Provider 05/02/20 05/09/21 Vinicio, DEPLOYMENT SPECIALIST CNM [address], [address] [place], [place] [address] Marija Edgar APRN Assigned PCP 06/08/20 RECENTERER [address] [place], [place] [phone] Mynor Broussard MD Assigned Surgical 06/01/20 11/28/[address] [place] Provider 500 [place], [place] [address] Keisha Dotson, Assigned Neuroscience 06/04/20 MD Provider [address] [place] [address] Galo Burrell MD Assigned Heart and 10/05/20 04/02/[address] [place] [address] Diana Desir, [facility] Pharmacist Pharmacist 04/17/[address] [place] [address] Rain Galaviz Physician Dosier Operator Dermatology 04/28/21 ROVERTO Paredse [address] [facility] [address] [place] [id number] documented as of this encounter
--- OUTSIDE RECORDS SUMMARY | 2022-04-28 01:13 | XMS_ITS | Encounter Summary ---
:2000 Author Organization [place] Address [address] [place] [address] Care Team Providers Name Role Phone Lita Oseguera Unavailable Unavailable Marija Edgar APRN SECOND CHEF Primary Care Provider [phone] Chanelle Mccann FORESTRY ENGINEER CNM Unavailable + Marija Edgar APRN SECOND CHEF Unavailable Mynor Broussard MD Unavailable Keisha Dotson MD Unavailable Galo Burrell MD Unavailable Diana Desir [facility] Unavailable Reason for Visit Diagnostic Imaging CT Scan (Routine) - Closed Specialty Diagnoses / Procedures Referred By Contact Refer red To Contact Diagnoses Abdominal pain, left lower quadrant Magdalena Boone MD Procedures CT Abdomen Pelvis w Contrast CT Abdomen Pelvis w/o & w Contrast 2945 [facility] 100 [place] [address] Referral ID Status Reason Start Date Expiration Date Visits Requ ested Visits Authorized [id number] Closed 04/17/2021 04/17/2022 1 1 Encounter Details Date Type Department Care Team Description 04/17/2021 Hospital Encounter M [facility] Magdalena Boone Abdominal pain, [facility] MD Tl left lower quadrant [address] [facility] 100 [address] [place], [place] [phone] [address] Social History Tobacco Use Types Packs/Day Years [...] How often do you attend spiritism or scientology services? Never 09/22/2021 Do you [...] mouth daily MULTIVITAMIN W/IRON) 27-0.8 MG tablet hydrocortisone (WESTCORT) Apply topically 2 60 g 0 05/29/2021 0.2 % external times daily as creamIndications: needed (psoriasis Psoriasis flare) levETIRAcetam (KEPPRA) Take 1 tablet (500 90 tablet 1 02/2412/03/2021 500 MG tabletIndications: mg) by mouth daily Convulsions, unspecified convulsion type (H) omeprazole (PRILOSEC) 40 Take 1 capsule (40 90 capsule 0 09/02/[address] capsuleIndications: mg) by mouth daily Epigastric pain sertraline (ZOLOFT) 100 TAKE ONE AND 135 tablet 0 02/05/2021 05/29/2021 MG tabletIndications: ONE-HALF TABLETS BY Anxiety MOUTH EVERY DAY documented as of this encounter Plan of Treatment Upcoming Encounters Date Type Specialty Care Team Description 04/28/2022 Office Visit Family Practice Anthony Doe, ROVERTO [address] [place], [place] [phone] (Wo rk) 05/03/2022 Office Visit Dermatology Neil Kent M D 500 [place] [address] (Wo rk) 05/05/2022 Office Visit Optometry Yeny David, OD [address] [facility] [address] [place] [phone] (Wo rk) 05/11/2022 Virtual Visit Pharm Diana Eckert , [facility] [address] [place], [place] [phone] (Wo rk) 05/14/2022 Office Visit Cardiology Livan Sharif MD [address] , [place] [address] [place] [address] (Wo rk) 05/31/2022 Office Visit Family Practice Valery Veronica PA-C 909 [place] [address] (Wo rk) documented as of this encounter Procedures Procedure Name Priority Date/Time Associated Diagnosis Comme nts CT ABDOMEN PELVIS W STAT 04/17/2021 11:04 AM Abdominal pain , left Results for this CONTRAST CDT lower quadrant procedure are in the results section. documented in this encounter Results CT Abdomen Pelvis w Contrast (04/17/2021 11:04 AM CDT) Anatomical Region Laterality Modality Abdomen/Pelvis, SUBRAD CT BODY, UMP CT ABDOMEN PELVIS, Computed Tomography RAD CT Specimen (Source) Anatomical Location Collection Method / Collectio n Time Received Time / Laterality Volume Impressions 04/17/2021 11:23 AM CDT IMPRESSION: 1. ??Left ovarian cyst measures 2.0 cm a nd is associated with trace pelvic free fluid, possibly the cause of left lower quadrant pain. 2. ??No evidence of renal stone disease or diverticulitis. MULU HAWKINS MD Narrative 04/17/2021 11:[address] ABDOMEN AND PELVIS WITH CONTRAST 04/17/2021 11:04 AM CLINICAL HISTORY: Diverticulitis suspect ed. Flank pain, , stone disease suspected - left. Abdomina l pain, left lower quadrant. TECHNIQUE: CT scan of the abdomen and pe lvis was performed following injection of IV contrast. Multiplanar re formats were obtained. Dose reduction techniques were used. CONTRAST: 100mL Isovue-370 COMPARISON: None. FINDINGS: LOWER CHEST: Normal. HEPATOBILIARY: Normal. PANCREAS: Normal. SPLEEN: Normal. ADRENAL GLANDS: Normal. KIDNEYS/BLADDER: Normal. BOWEL: Normal appendix. No bowel obstruc tion or inflammatory change. No evidence of diverticulosis or diverti culitis. PELVIC ORGANS: Left ovarian cyst measure s 2.0 cm. An IUD is present in the uterus. Trace pelvic free fluid. ADDITIONAL FINDINGS: None. MUSCULOSKELETAL: Normal. Procedure Note Mulu Hawkins MD - 04/17/2021Forma tting of this note might be different from the original. CT ABDOMEN AND PELVIS WITH CONTRAST 04/17 11:04 AM CLINICAL HISTORY: Diverticulitis suspect ed. Flank pain, , stone disease suspected - left. Abdomina l pain, left lower quadrant. TECHNIQUE: CT scan of the abdomen and pe lvis was performed following injection of IV contrast. Multiplanar re formats were obtained. Dose reduction techniques were used. CONTRAST: 100mL Isovue-370 COMPARISON: None. FINDINGS: LOWER CHEST: Normal. HEPATOBILIARY: Normal. PANCREAS: Normal. SPLEEN: Normal. ADRENAL GLANDS: Normal. KIDNEYS/BLADDER: Normal. BOWEL: Normal appendix. No bowel obstruc tion or inflammatory change. No evidence of diverticulosis or diverti culitis. PELVIC ORGANS: Left ovarian cyst measure s 2.0 cm. An IUD is present in the uterus. Trace pelvic free fluid. ADDITIONAL FINDINGS: None. MUSCULOSKELETAL: Normal. IMPRESSION: 1. Left ovarian cyst measures 2.0 cm and is associated with trace pelvic free fluid, possibly the cause of left lower quadrant pain. 2. No evidence of renal stone disease or diverticulitis. MULU HAWKINS MD Magdalena Boone MD IMG CT ORDERABLES documented in this encounter Visit Diagnoses Diagnosis Abdominal pain, left lower quadrant documented in this encounter Administered Medications Inactive Administered Medications - up to 3 most recent administrations Medication Order MAR Action Action Date Dose Rate Site iopamidol (ISOVUE-370) solution Given 04/17/2021 10:56 AM CDT 10 0 mLs 500 mL 500 mL, Intravenous, ONCE, On Tue04/17/21 at 1100, For 1 dose sodium chloride 0.9 % bag 500mL for CT scan Given 02/2021 10:56 AM CDT 65 mLs flush use As instructed, 100 mL, ONCE, On Tue04/17/21 at 1100, For 1 dose, This entry is for use by Radiology to intermittently used as a flush in patients receiving a CT scan. documented in this encounter Additional Health Concerns Assessment Noted Time PHQ-9 Depression Total Score: 2 04/02/2021 10:19 AM CD T documented as of this encounter Care Teams Reagent Tender Helper Relationship Specialty Start Date End Date Marija Edgar APRN PCP - General Nurse Practitioner 04/30/20 SECOND CHEF [address] [place] [address] Lita Oseguera Personal Advocate & 02/28/20 Liaison (PAL) Chanelle Mccann Assigned OBGYN Provider 05/02/20 05/09/21 ARLENE Mooney CNM [address] [place], [address] [place] [address] Marija Edgar APRN Assigned PCP 06/08/20 SECOND CHEF [address] [place], [place] [phone] Mynor Broussard MD Assigned Surgical 06/01/20 11/28/[address] [place] Provider 500 [place] [address] Keisha Dotson, Assigned Neuroscience 06/04/20 MD Provider 909 [place] [address] Galo Burrell MD Assigned Heart and 10/05/20 04/02/22 [address] [place] [address] Diana Desir, [facility] Pharmacist Pharmacist 04/17/[address] [place], [place] [address] documented as of this encounter
--- OUTSIDE RECORDS SUMMARY | 2022-04-28 01:13 | XMS_ITS | Encounter Summary ---
:2000 Author Organization [place] Address [address] [place] [address] Care Team Providers Name Role Phone Lita Oseguera Unavailable Unavailable Marija Edgar APRN SIEBEL ARCHITECT Primary Care Provider [phone] Chanelle Mccann SENIOR ENERGY MARKET COORDINATOR CNM Unavailable + Marija Edgar APRN SIEBEL ARCHITECT Unavailable Mynor Broussard MD Unavailable Keisha Dotson MD Unavailable Galo Burrell MD Unavailable Diana Desir [facility] Unavailable Rain Galaviz PA-C Unavailable [phone] Reason for Visit Reason Onset Date Comments Symptoms 05/05/2021 Psoriasis - getting extremely worse Encounter Details Date Type Department Care Team Description 05/05/2021 Telephone [facility] Rain Galaviz oms (Psoriasis - [facility] [place] [facility]ared[place] [facility]-C [facility] [address] [place] [address] worse) [address] [place] [address] [phone] (Wo rk) Social History Tobacco Use Types [...] How often do you attend mosque or voodoo services? Never 09/22/2021 Do you belong to [...] Telephone Encounter - Lauren Gan RN - 05/05/2021 2:38 PM CDT Infot message sent: Soham Ambriz I suggest going to urgent care or following up with your primary care provider if your symptoms are getting worse. You can call our Dermatology scheduling line @[phone] and have them check all Derm schedules throughout the system. I know Nilesh Barrios, and Alberta Watson also have Dermatology providers. Let me know if you have any questions. VJ Jackson-BSN-[facility] Dermatology [phone] Telephone Encounter - Pattie Mina - 05/05/2021 1:17 PM CDT [facility] Call Center Phone Message May a detailed message be left on voicemail: yes Reason for Call: Symptoms or Concerns If patient has red-flag symptoms, warm transfer to triage line Current symptom or concern: Psoriasis - getting extremely worse Spreading and bleeding all over. Symptoms have been present for: 2 month(s) Has patient previously been seen for this? No By : NA Date: NA Are there any new or worsening symptoms? Yes: Pt is scheduled for 07/15 and wait listed. Pt is complaining her condition is worse and is spreading and bleeding. Pt would like to know what she could do.Please call Pt back to discuss. Thank you Action Taken: Message routed to: [facility] Derm Travel Screening: Not Applicable documented in this encounter Plan of Treatment Upcoming Encounters Date Type Specialty Care Team Description 04/28/2022 Office Visit Family Practice Anthony Doe PA-C [address] [place], [place] [phone] (Wo rk) 05/03/2022 Office Visit Dermatology Neil Kent M D [address] [place] [phone] (Wo rk) 05/05/2022 Office Visit Optometry Yeny David, OD [address] [facility] [place] [phone] (Wo aldo) 05/11/2022 Virtual Visit Pharm D Diana Desir , [facility] [address] [place], [place] [address] (Wo rk) 05/14/2022 Office Visit Cardiology Livan Sharif MD [address], [address] [place] [address] (Wo rk) 05/31/2022 Office Visit Family Practice Valery Veronica , PAUcheC [address] [place], [place] [address] (Wo rk) documented as of this encounter Visit Diagnoses Not on filedocumented in this encounter Additional Health Concerns Assessment Noted Time PHQ-9 Depression Total Score: 2 04/02/2021 10:19 AM CD T documented as of this encounter Care Teams Cake Stripper Relationship Specialty Start Date End Date Marija Edgar APRN PCP - General Nurse Practitioner 04/30/20 SIEBEL ARCHITECT [address] [place] [address] Lita Oseguera Personal Advocate & 02/28/20 Liaison (PAL) Chanelle Mccann Assigned OBGYN Provider 05/02/20 05/09/21 [place] [address] [place], [address] [place], [place] [address] Marija Edgar APRN Assigned PCP 06/08/20 SIEBEL ARCHITECT [address] [place] [address] Mynor Broussard MD Assigned Surgical 06/01/20 11/28/[address] [place] Provider [address] [place] [address] Keisha Dotson, Assigned Neuroscience 06/04/20 MD Provider 909 [place] [address] Galo Burrell MD Assigned Heart and 10/05/20 04/02/22 [address] Vascular Provider [place], [place] [address] Diana Desir, [facility] Pharmacist Pharmacist 04/17/21 [address] [place], [place] [address] Rain Galaviz Physician Supervisor Assembly And Packing Dermatology 04/28/21 ROVERTO Paredes [address] [place] [address] DR [facility] [facility] [phone] documented as of this encounter
--- OUTSIDE RECORDS SUMMARY | 2022-04-28 01:13 | XMS_ITS | Encounter Summary ---
:2000 Author Organization [place] Address [address] [place] [address] Care Team Providers Name Role Phone Lita Oseguera Unavailable Unavailable Marija Edgar APRN SAFETY ENGINEER PRESSURE VESSELS Primary Care Provider Chanelle Mccann ENGINEERING TECH CNM Unavailable + Marija Edgar APRN SAFETY ENGINEER PRESSURE VESSELS Unavailable Mynor Broussard MD Unavailable Keisha Dotson MD Unavailable Galo Burrell MD Unavailable Diana Desir [facility] Unavailable Rain GalavizC Unavailable Encounter Details Date Type Department Care Team Description 04/28/2021 [facility] Only [facility] Livan Dotson MD Encounter for Endoscopy SANDRITA ALCALA screening for other [place] 307545 [facility] 200 viral diseases [address] [place] [address] [place], [place] [phone] (Wo rk) [address] [phone] Social History Tobacco Use Types Packs/Day Years [...] week 09/22/2021 How often do you attend anabaptism or amish services? Never 09/22/2021 Do you belong to any clubs or organizations such as No 09/22/2021 anabaptism groups, unions, fraternal or athletic groups, or [...] Office Visit Family Practice Anthony Doe PA-C [address] [place] [address] (Wo rk) 05/03/2022 Office Visit Dermatology Neil Kent M D [address] [place] [phone] (Wo rk) 05/05/2022 Office Visit Optometry Yeny David, OD [address] [facility] [address] [place], [place] [phone] (Wo rk) 05/11/2022 Virtual Visit Pharm D Diana Desir , [facility] [address] [place], [place] [address] (Wo rk) 05/14/2022 Office Visit Cardiology Livan Sharif MD [address] [facility] [address] [place], [place] [address] (Wo rk) 05/31/2022 Office Visit Family Practice Valery Veronica PA-C 909 [place], [place] [address] (Wo rk) documented as of this encounter Visit Diagnoses Diagnosis Encounter for screening for other viral diseases documented in this encounter Additional Health Concerns Assessment Noted Time PHQ-9 Depression Total Score: 2 04/02/2021 10:19 AM CD T documented as of this encounter Care Teams Roll Edge Stitcher Hand Relationship Specialty Start Date End Date Marija Edgar APRN PCP - General Nurse Practitioner 04/30/20 SAFETY ENGINEER PRESSURE VESSELS [address] [place] [address] Lita Oseguera Personal Advocate & 02/28/20 Liaison (PAL) Chanelle Mccann Assigned OBGYN Provider 05/02/20 05/09/21 [place] [address] [address] [facility] 200 [place], [place] [address] Marija Edgar APRN Assigned PCP 06/08/20 SAFETY ENGINEER PRESSURE VESSELS [address] [place], [place] [phone] Mynor Broussard MD Assigned Surgical 06/01/20 11/28/21 [address] [place] Provider 500 [place] [id number] Keisha Dotson, Assigned Neuroscience 06/04/20 MD Provider 909 [place], [place] [address] Galo Burrell MD Assigned Heart and 10/05/20 04/02/22 [address] [place] [id number] Diana Desir, [facility] Pharmacist Pharmacist 04/17/21 [address] [place] [address] Rain Galavzi Physician Iuss Master Analyst Dermatology 04/28/21 ROVERTO Paredes [address] [facility] [address] [place] [facility] [place] [address] documented as of this encounter
--- OUTSIDE RECORDS SUMMARY | 2022-04-28 01:13 | XMS_ITS | Encounter Summary ---
:2000 Author Organization [facility] Address [address] [place] [address] Care Team Providers Name Role Phone Lita Oseguera Unavailable Unavailable Marija Edgar APRN CAFETERIA SERVER Primary Care Provider [phone] Chanelle Mccann APRN CNM Unavailable + Marija Edgar APRN CAFETERIA SERVER Unavailable Mynor Broussard MD Unavailable Keisha Dotson MD Unavailable Galo Burrell MD Unavailable Reason for Referral Consultation (Routine) - Closed Specialty Diagnoses / Procedures Referred By Contact Refer red To Contact Diagnoses Abdominal pain, left lower quadrant Adin Delatorre MD [facility] [address] [place] [address] [address] [place] [address] Phone: Fax: Referral ID Status Reason Start Date Expiration Date Visits Requ ested Visits Authorized [id number] Closed 04/16/2021 04/16/2022 1 1 Reason for Visit Reason Comments Pain left side of abdomen pain - radiates to her back and down her upper left leg x yesterday - worse today- jaquan n is mostly on and off -- IUD was inserted 2 weeks ago UTI will also do a wet prep, hav ing some urinay issues too Encounter Details Date Type Department Care Team Description 04/16/2021 Office Visit [facility] Adin Delatorre, Abdom inal pain, left lower quadrant (Primary Dx); Urgent Care Tiago woods MD Itching; [address] [address] Dysuria [place], [place] [address] [phone] Social History Tobacco Use Types Packs/Day Years [...] Sign Reading Time Taken Comments Blood Pressure 124/72 04/16/2021 6:29 PM CDT Pulse 75 04/16/2021 6:29 PM CDT Temperature 37.1 ??C (98.8 ??F) 04/16/2021 6:29 PM CDT Respiratory Rate 16 04/16/2021 6:29 PM CDT Oxygen Saturation 98% 04/16/2021 6:29 PM CDT Inhaled Oxygen Concentration - - Weight 90.7 kg (200 lb) 04/16/2021 6:29 PM CDT Height 167.6 cm (5' 6) 04/16/2021 6:29 PM CDT Body Mass Index 32.28 04/16/2021 6:29 PM CDT documented in this encounter Patient Instructions Patient InstructionsAdin Delatorre MD - 04/16/2021 6:45 PM CDT 9:15 tomorrow at the [facility]. documented in this encounter Progress Notes Adin Delatorre MD - 04/16/2021 6:45 PM CDT Assessment & Plan ICD-10-CM 1. Abdominal pain, left lower quadrant R10.32 Wet prep - lab collect UA macro with reflex to Microscopic and Culture - Clinc Collect Wet prep - lab collect Urine Microscopic HCG qualitative urine Referral to Acute and Diagnostic Services (Day of diagnostic / First order acute) 2. Itching L29.9 Wet prep - lab collect Wet prep - lab collect 3. Dysuria R30.0 UA macro with reflex to Microscopic and Culture - Clinc Collect Urine Microscopic unclear etiology of her pain. Given her micrograms hx suspect this is related to the previous calcification. Discussed ER v referral to [facility] for tomorrow. She is stable. Discussed with [facility] and will arrange for early bar appt. DDX includes MSK pain. Ovarian pathology. Colon pathology such as IBD and early shingles. Transfer to Acute and Diagnostic Services I have contacted the staff at the [facility] at [phone] ([place]) to confirm patient acceptance. Special Needs: None Discussed transition to Acute & Diagnostic Services Clinic, and patient agrees with next level of care. Patient transportation will be provided by the patient. [id number]} No follow-ups on file. Adin Delatorre MD [facility] Subjective Kim Johnson presents to clinic today for the following health issues: chief complaint HPI 2 days of worsening pain on her left lower back radiating around to the front and down her ant thigh. Pain initially intermittent now constant and more severe. No associated symptoms noted. No numbness/tingling. Does not seem to be affected by movement. The patient has a history of left ureteropelvic calcification thought to be stone or possible ureterocele on ct scan. Was going to have surgery then found out she was . This was about a year ago. Had an IUD placed about 2 weeks ago. Some slight irregular bleeding since. Review of Systems No fever. Had darker stools a couple weeks ago but no blood in the stool, no urinary symptoms. No new cv, resp nor uri symptoms. No rash noted. Objective BP 124/72 (BP Location: Right arm, Patient Position: Chair, Cuff Size: Adult Regular) Pulse 75 Temp 98.8 ??F (37.1 ??C) (Oral) Resp 16 Ht 1.676 m (5' 6) Wt 90.7 kg (200 lb) SpO2 98% Yes BMI 32.28 kg/m?? Physical Exam GENERAL: healthy, alert and no distress RESP: lungs clear to auscultation - no rales, rhonchi or wheezes CV: regular rate and rhythm, normal S1 S2, no S3 or S4, no murmur, click or rub, no peripheral edemaand peripheral pulses strong ABDOMEN: bowel sounds normal and tender left lower quadrant no masses. No peritoneal signs. MS: no gross musculoskeletal defects noted, no edema SKIN: no suspicious lesions or rashes BACK: no CVA tenderness , no paralumbar tenderness although this is where the area of pain seems to be. Results for orders placed or performed in visit on 04/16/21 UA macro with reflex to Microscopic and Culture - Clinc Collect Status: Abnormal Specimen: Urine, Midstream Result Value Ref Range Color Urine Yellow Colorless, Straw, Light Yellow, Yellow Appearance Urine Clear Clear Glucose Urine Negative Negative mg/dL Bilirubin Urine Negative Negative Ketones Urine Negative Negative mg/dL Specific Draper Urine 1.025 1.003 - 1.035 Blood Urine Small (A) Negative pH Urine 6.0 5.0 - 7.0 Protein Albumin Urine Negative Negative mg/dL Urobilinogen Urine 0.2 0.2, 1.0 E.U./dL Nitrite Urine Negative Negative Leukocyte Esterase Urine Negative Negative Urine Microscopic Status: Abnormal Result Value Ref Range Bacteria Urine Few (A) None Seen /HPF RBC Urine 0-2 0-2 /HPF /HPF WBC Urine 0-5 0-5 /HPF /HPF Squamous Epithelials Urine Few (A) None Seen /LPF Narrative Urine Culture not indicated HCG qualitative urine Status: Normal Result Value Ref Range hCG Urine Qualitative Negative Negative Wet prep - lab collect Status: Normal Specimen: Vagina; Swab Result Value Ref Range Trichomonas Absent Absent Yeast Absent Absent Clue Cells Absent Absent WBCs/high power field None None . documented in this encounter Plan of Treatment Upcoming Encounters Date Type Specialty Care Team Description 04/28/2022 Office Visit Family Practice Anthony Doe PA-C [address] [place], [place] [phone] (Wo aldo) 05/03/2022 Office Visit Dermatology Neil Kent M D [address] [place] [phone] (Wo rk) 05/05/2022 Office Visit Optometry Yeny David, OD [address] [place] [address] (Wo rk) 05/11/2022 Virtual Visit Pharm D Diana Desir , [facility] [address] [place], [place] [address] (Wo rk) 05/14/2022 Office Visit Cardiology Livan Sharif MD [address], [address] [place], [place] [address] (Wo rk) 05/31/2022 Office Visit Family Practice Valery Veronica PA-C [address] [place] [address] (Wo rk) Scheduled Referrals Name Type Priority Associated Diagnoses Order S chedule Referral to Acute Referral Routine: Next Abdominal pain, left E xpected: and Diagnostic available opening lower quadrant 2020 Services (Day of (Approximat e), diagnostic / First Expires: order acute) 04/16/2022 documented as of this encounter Procedures Procedure Name Priority Date/Time Associated Comments Diagnosis HCG QUALITATIVE URINE Add-On 04/16/2021 7:32 PM Abdominal jaquan n, Results for this CDT left lower quadrant procedur e are in the results section. URINE MICROSCOPIC Routine 04/16/2021 6:35 PM Dysuria Results for this CDT Abdominal pain, procedure ar e in left lower quadrant the resu lts section. UA MACROSCOPIC WITH Routine 04/16/2021 6:35 PM Dysuria Results for this REFLEX TO MICRO AND CDT Abdominal pain, proce dure are in CULTURE left lower quadrant the resu lts section. WET PREPARATION Routine 04/16/2021 6:35 PM Itching Results for this CDT Abdominal pain, procedure ar e in left lower quadrant the resu lts section. documented in this encounter Results HCG qualitative urine (04/16/2021 7:32 PM CDT) [facility] Method Time Signature hCG Urine Negative Negative REINA 04/16/2021 [facility] Qualitative 7:44 PM CDT Comment: This test is for screening purp oses. Results should be interpreted along with the clinical picture. Confirmation testing is available if warranted by ordering [id number], HCG Quantitative . Specimen Anatomical Collection Method Collection Time Receive d Time (Source) Location / / Volume Laterality Urine MID-STREAM URINE Non-blood 04/16/2021 7:32 PM 04/16 7:32 SPECIMEN / Unknown Collection / CDT PM CDT Unknown Adin Delatorre MD LAB - URINE ORDERABLES Performing Organization Address City/[facility]/ZIP Code [place] [phone] Lab [address] [facility] (no room number, 1st floor of clinic) [place] [address], [facility] [address] [facility] (no room number, 1st floor of clinic) (ABNORMAL) Urine Microscopic (04/16/2021 6:35 PM CDT) [facility] Method Time Signature Bacteria Urine Few (A) None Seen REINA 04/16/2021 [facility] /HPF 6:58 PM CDT RBC Urine 0-2 0-2 /HPF [facility] 04/16/2021 LABORATORY /HPF 6:58 PM CDT WBC Urine 0-5 0-5 /HPF REINA 04/16/2021 LABORATORY /HPF 6:58 PM CDT Squamous Few (A) None Seen REINA 04/16/2021 LABORATORY Epithelials /LPF 6:58 PM CDT Urine Specimen Anatomical Collection Method Collection Time Receive d Time (Source) Location / / Volume Laterality Urine MID-STREAM URINE Non-blood 04/16/2021 6:35 PM 04/16 6:36 SPECIMEN / Unknown Collection / CDT PM CDT Unknown Narrative LABORATORY - 04/16/2021 6:58 PM CDT Urine Culture not indicated Amalia Zayas MD LAB - URINE ORDERABLES Performing Organization Address City/State/ZIP [place] [phone] Lab [address] [facility] (no room number, 1st floor of [facility]) [place] [address], [phone] [facility] [address] [facility] (no room number, 1st floor of clinic) (ABNORMAL) UA macro with reflex to Microscopic and Culture - Clinc Collect (04/16/2021 6:35 PM CDT) [facility] gist Method Time Signature Color Urine Yellow Colorless, 04/16/2021 LABORATORY Straw, Light 6:58 PM CDT Yellow, Yellow Appearance Urine Clear Clear 04/16/2021 [facility] Y 6:58 PM CDT Glucose Urine Negative Negative 04/16/2021 LABORATORY mg/dL 6:58 PM CDT Bilirubin Urine Negative Negative 04/16/2021 [facility] 6:58 PM CDT Ketones Urine Negative Negative 04/16/2021 LABORATORY mg/dL 6:58 PM CDT Specific Draper 1.025 1.003 - 04/16/2021 [facility] Y Urine 1.035 6:58 PM CDT Blood Urine Small (A) Negative 04/16/2021 [facility] 6:58 PM CDT pH Urine 6.0 5.0 - 7.0 04/16/2021 [facility] 6:58 PM CDT Protein Albumin Negative Negative 04/16/2021 LABORATORY Urine mg/dL 6:58 PM CDT Urobilinogen 0.2 0.2, 1.0 04/16/2021 LABORATORY Urine E.U./dL 6:58 PM CDT Nitrite Urine Negative Negative 04/16/2021 LABORATORY 6:58 PM CDT Leukocyte Negative Negative 04/16/2021 LABORATORY Esterase Urine 6:58 PM CDT Specimen Anatomical Collection Method Collection Time Receive d Time (Source) Location / / Volume Laterality Urine MID-STREAM URINE Non-blood 04/16/2021 6:35 PM 04/16 6:36 SPECIMEN / Unknown Collection / CDT PM CDT Unknown Amalia aZyas MD LAB - URINE ORDERABLES Performing Organization Address City/State/ZIP [place] [address] Lab [address] [facility] (no room number, 1st floor of clinic) [place] [address], [facility] [address] [facility] (no room number, 1st floor of clinic) Wet prep - lab collect (04/16/2021 6:35 PM CDT) Analysis Performed At Patho logist Time Signature Trichomonas Absent Absent REINA 04/16/2021 [facility] 6:51 PM CDT Yeast Absent Absent REINA 04/16/2021 [facility] 6:51 PM CDT Clue Cells Absent Absent REINA 04/16/2021 [facility] 6:51 PM CDT WBCs/high power None None REINA 04/16/2021 [facility] field 6:51 PM CDT Specimen Anatomical Collection Method Collection Time Receive d Time (Source) Location / / Volume Laterality Swab VAGINAL STRUCTURE Non-blood 04/16/2021 6:35 PM 100 01/2021 6:36 / Unknown Collection / CDT PM CDT Unknown Amalia Zayas MD LAB - MICRO GENERAL ORDERABL ES Performing Organization Address City/State/ZIP Code [place] [address] Lab [address] [facility] (no room number, 1st floor of clinic) [place] [address], [phone] [facility] [address] [facility] (no room number, 1st floor of clinic) documented in this encounter Visit Diagnoses Diagnosis Abdominal pain, left lower quadrant - Pr imary Itching Unspecified pruritic disorder Dysuria documented in this encounter Additional Health Concerns Assessment Noted Time PHQ-9 Depression Total Score: 2 04/02/2021 10:19 AM CD T documented as of this encounter Care Teams Associate Dean Relationship Specialty Start Date End Date Marija Edgar APRN PCP - General Nurse Practitioner 04/30/20 CAFETERIA SERVER [address] [place] [address] Lita Oseguera Personal Advocate & 02/28/20 Liaison (PAL) Chanelle Mccann Assigned OBGYN Provider 05/02/20 05/09/21 [place] [address] [address] [facility] [place] [address] Marija Edgar APRN Assigned PCP 06/08/20 CAFETERIA SERVER [address] [place] [address] Mynor Broussard MD Assigned Surgical 06/01/20 11/28/21 [address] Provider [address] [place] [address] Mauri, Assigned Neuroscience 06/04/20 MD Keisha Provider [address] [place] [address] Galo Burrell MD Assigned Heart and 10/05/20 04/02/22 [address] Vascular Provider [address] [place] [address] documented as of this encounter
--- OUTSIDE RECORDS SUMMARY | 2022-04-28 01:13 | XMS_ITS | Encounter Summary ---
:2000 Author Organization [facility] Address [address] [place] [address]. [place] [address] Care Team Providers Name Role Phone Lita Oseguera Unavailable Unavailable Marija Edgar APRN QUICK SERVICE TECHNICIAN Primary Care Provider [phone] [facility]ccann [facility] PROMOTIONAL MODEL CN Unavailable + Marija Edgar APRN QUICK SERVICE TECHNICIAN Unavailable Mynor Broussard MD Unavailable Keisha Dotson MD Unavailable Galo Burrell MD Unavailable Reason for Visit Reason Onset Date Comments No Show 03/25/2021 Encounter Details Date Type Department Care Team Description 03/25/2021 Office Visit [facility] Marija Edgar NO SHO W (Primary Dx) [facility] [place] PROMOTIONAL MODEL QUICK SERVICE TECHNICIAN [address] [address] [phone] Social History Tobacco Use Types Packs/Day Years [...] How often do you attend protestant or muslim services? Never 09/22/2021 Do you [...] been in contact with No / Unsure 03/23/2021 10:06 AM CDT someone who was confirmed or suspected to have Coronavirus / COVID-19? documented as of this encounter Progress Notes Marija Edgar APRN CNP - 03/25/2021 10:00 AM CDT This patient was a no show for this scheduled appointment. documented in this encounter Plan of Treatment Upcoming Encounters Date Type Specialty Care Team Description 04/28/2022 Office Visit Family [facility] Anthony Doe PA-C [address] [place] [address] (Wo rk) 05/03/2022 Office Visit Dermatology Neil Kent M D [address] [place], [place] [phone] (Wo rk) 05/05/2022 Office Visit Optometry Frankie Nataliemohamud Garcia, OD [address] [facility] [address] [address] [place], [place] [phone] (Wo rk) 05/11/2022 Virtual Visit Pharm D Diana Desir , [facility] [address] [place], [place] [phone] (Wo rk) 05/14/2022 Office Visit Cardiology Livan Sharif MD [address] [facility] [address] [place], [place] [address] (Wo rk) 05/31/2022 Office Visit Family Practice Valery Veronica PA-C [address] [place] [phone] (Wo rk) documented as of this encounter Visit Diagnoses Diagnosis NO SHOW - Primary documented in this encounter Additional Health Concerns Assessment Noted Time PHQ-9 Depression Total Score: 2 03/03/2021 7:02 AM CDT documented as of this encounter Care Teams Particle Board Supervisor Relationship Specialty Start Date End Date Marija Edgar APRN PCP - General Nurse Practitioner 04/30/20 QUICK SERVICE TECHNICIAN [address] [place] [address] Lita Oseguera Personal Advocate & 02/28/20 Liaison (PAL) Chanelle Mccann Assigned OBGYN Provider 05/02/20 05/09/21 [place] [address] [address] [facility], [address] [place], [place] [address] Marija Edgar APRN Assigned PCP 06/08/20 QUICK SERVICE TECHNICIAN [address] [place] [address] Mynor Broussard MD Assigned Surgical 06/01/20 11/28/21 [address] [place] Provider [address] [place] [address] Mauri, Assigned Neuroscience 06/04/20 MD Keisha Provider [address] [place], [place] [phone] Galo Burrell MD Assigned Heart and 10/05/20 04/02/22 [address] Vascular Provider [address] [place] [address] documented as of this encounter
--- OUTSIDE RECORDS SUMMARY | 2022-04-28 01:13 | XMS_ITS | Encounter Summary ---
:2000 Author Organization [facility] Address [address] [place] [address] Care Team Providers Name Role Phone Lita Oseguera Unavailable Unavailable Marija Edgar APRN WATER QUALITY TESTER Primary Care Provider Chanelle Mccann APRN CNM Unavailable + Marija Edgar APRN WATER QUALITY TESTER Unavailable Mynor Broussard MD Unavailable Keisha Dotson MD Unavailable Galo Burrell MD Unavailable Encounter Details Date Type Department Care Team Description 04/02/2021 Travel Social History Tobacco Use Types Packs/Day [...] How often do you attend muslim or congregation services? Never 09/22/2021 Do you belong to [...] been in contact with No / Unsure 04/02/2021 10:13 AM CDT someone who was confirmed or suspected to have Coronavirus / COVID-19? documented as of this encounter Plan of Treatment Upcoming Encounters Date Type Specialty Care Team Description 04/28/2022 Office Visit Family Practice Anthony Doe, [place] [address] [place], [place] [phone] (Wo rk) 05/03/2022 Office Visit Dermatology Neil Kent M D [address] [place], [place] [address] (Wo rk) 05/05/2022 Office Visit Optometry Yeny David, OD [address] [facility] [place] [address] (Wo rk) 05/11/2022 Virtual Visit Pharm D Diana Desir , [facility] [address] [place], [place] [address] (Jefferson carlson) 05/14/2022 Office Visit Cardiology Livan Sharif MD [address], [address] [place] [address] (Wo rk) 05/31/2022 Office Visit Family Practice Valery Veronica , PA-C [address] [place], [place] [address] (Wo rk) documented as of this encounter Visit Diagnoses Not on filedocumented in this encounter Additional Health Concerns Assessment Noted Time PHQ-9 Depression Total Score: 2 04/02/2021 10:19 AM CD T documented as of this encounter Care Teams Management Aide Relationship Specialty Start Date End Date Marija Edgar APRN PCP - General Nurse Practitioner 04/30/20 WATER QUALITY TESTER [address] [place] [address] Lita Oseguera Personal Advocate & 02/28/20 Liaison (PAL) Chanelle Mccann Assigned OBGYN Provider 05/02/20 05/09/21 [place] [address] [address] [facility] [address] [place], [place] [address] Marija Edgar APRN Assigned PCP 06/08/20 WATER QUALITY TESTER [address] [place], [place] [phone] Mynor Broussard MD Assigned Surgical 06/01/20 11/28/21 [address] [facility] Provider [address] [place] [address] Mauri, Assigned Neuroscience 06/04/20 MD Keisha Provider [address] [place] [address] Galo Burrell MD Assigned Heart and 10/05/20 04/02/22 [address] Vascular Provider [address] [place] [address] documented as of this encounter
--- OUTSIDE RECORDS SUMMARY | 2022-04-28 01:13 | XMS_ITS | Encounter Summary ---
:2000 Author Organization [place] Address [address] [place] [address]. [place] [address] Care Team Providers Name Role Phone Lita Oseguera Unavailable Unavailable Marija Edgar APRN VEST FRONT PRESSER Primary Care Provider [phone] Chanelle Mccann FLASK MAKER CNM Unavailable + Marija Edgar APRN VEST FRONT PRESSER Unavailable Mynor Broussard MD Unavailable Keisha Dotson MD Unavailable Galo Burrell MD Unavailable Diana Desir [facility] Unavailable Rain Galaviz PA-C Unavailable Reason for Visit Reason Comments Urgent Care Right brest pain x this AM, . Encounter Details Date Type Department Care Team Description 05/08/[address] [facility] Mani Gentile M D Acute mastitis of Urgent Care [place] [id number] [facility] right breast (Primary [address] [facility] [address]) [place] [phone] Social History Tobacco Use Types Packs/Day Years [...] How often do you attend restoration or scientology services? Never 09/22/2021 Do you [...] been in contact with No / Unsure 05/08/2021 2:02 PM CDT someone who was confirmed or suspected to have Coronavirus / COVID-19? documented as of this encounter Last Filed Vital Signs Vital Sign Reading Time Taken Comments Blood Pressure 118/62 05/08/2021 2:13 PM CDT Pulse 92 05/08/2021 2:13 PM CDT Temperature 36.8 ??C (98.2 ??F) 05/08/2021 2:13 PM CDT Respiratory Rate - - Oxygen Saturation 97% 05/08/2021 2:13 PM CDT Inhaled Oxygen Concentration - - Weight 90.7 kg (200 lb) 05/08/2021 2:13 PM CDT Height - - Body Mass Index 32.28 04/16/2021 6:29 PM CDT documented in this encounter Patient Instructions Patient InstructionsMani Gentile MD - 05/08/2021 2:05 PM CDT Images from the original note were not included. Okay to take tylenol 500 mg - 2 tablets (1000 mg) every 6-8 hours as needed, do not exceed 3000 mg in 24 hours. Take full course of antibiotic for mastitis. Patient Education Mastitis Mastitis occurs when breast tissue becomes swollen and inflamed. This is almost always due to infection. Mastitis most often affects women during the first 6 weeks after childbirth. For this reason, it???s also known as mastitis. Infection may happen after a duct becomes clogged, causing milk to back up in the breast. Mastitis may also occur if bacteria enter the breast through small cracks in the nipple. (Less often, mastitis occurs in women who aren???t . If you have mastitis that is not due to , your healthcare provider will give you more information as needed. Treatment may include some of the same home care measures listed below.) Mastitis may cause flu-like symptoms such as fever, aches, and fatigue. The affected breast may feelpainful, warm, tender, firm, or swollen. The skin over the breast may be red (often in a wedge-shaped pattern). You may feel a burning a sensation when . In most cases, mastitis can be treated with antibiotics. This should clear the infection. If treatment is delayed, a pocket of pus (abscess) can form in the breast tissue. A procedure may then be needed to drain the pus. In severe cases of infection, other treatments may be needed. Home care ?? It???s very important to keep the milk flowing from the infected breast. Continue from both breasts as usual. This will not hurt the baby. If this is too painful, use a breast pump to remove milk from the infected side. This can be fed to your baby or discarded. Note: If you don't continue to breastfeed or pump your breast, bacteria can grow in the milk that is left in your breast. This can make your infection worse. ?? Tell your healthcare provider if you have problems with . He or she may suggest changes to your technique, if needed. You may also be referred to a nurse or sr technical sales consultant for support with . General care ?? Take any medicines you???re prescribed as directed. If you???re taking antibiotics, be sure to complete all of the medicine even if you start to feel better. Zkjb-erg-svkpxgh pain medicines may alsobe recommended. Don???t use breast creams or other products or medicines without talking to your healthcare provider first. Note: If you???re concerned about taking medicines while , talk to your healthcare provider. ?? Rest as often as needed. Also be sure to drink plenty of fluids. ?? To help relieve pain and swelling, heat or ice may be used. Apply as often as directed by your provider. ? Heat: Place a warm compress on the breast. Use a towel soaked in hot water, a heating pad, or a hot water bottle. ? Cold: Place a cold compress on the breast. Use an ice pack or bag of ice wrapped in a thin towel. Never place a cold source directly on the skin. Follow-up care Follow up with your healthcare provider as advised. When to seek medical advice Call your healthcare provider right away if any of these occur: ?? Fever of 100.4??F (38??C) or higher, or as directed by your provider ?? Shaking chills ?? Worsening symptoms or symptoms that don't improve within 48 to 72 hours of starting treatment ?? New symptoms develop Workspace last reviewed this educational content on 12/09/2017 ?? 3099-5409 The [employer]. All rights reserved. This information is not intended as a substitute for professional medical care. Always follow your healthcare professional's instructions. documented in this encounter Progress Notes Mani Gentile MD - 05/08/2021 2:05 PM CDT SUBJECTIVE: Chief Complaint Patient presents with ??? Urgent Care Right brest pain x this AM, . Kim Johnson is a 21 year old female who presents with a chief complaint of right breast pain. Developed right breast pain, developed last evening, got worse today. Has been and overall has been doing well. Has not tried any medication yet. girl is almost 4 months. Notice a redness this morning. Past Medical History: Diagnosis Date ??? Anxiety ??? Chronic kidney disease stones, history of infections ??? Depressive disorder ??? Gastroesophageal reflux disease ??? Psoriasis ??? Seizure (H) 05/02/2019 no seizure since 2017 ??? SVT (supraventricular tachycardia) (H) Current Outpatient Medications Medication Sig Dispense Refill ??? hydrocortisone (WESTCORT) 0.2 % external cream [...] MOUTH EVERY DAY 135 tablet 0 Social History Tobacco Use ??? Smoking status: Former Smoker Packs/day: 1.00 Types: Other Quit date: 12/07/2019 Years since quittin.4 ??? Smokeless tobacco: Never Used Substance Use Topics ??? Alcohol use: Not Currently ROS: Review of systems negative except as stated above. EXAM: BP 118/62 Pulse 92 Temp 98.2 ??F (36.8 ??C) (Oral) Wt 90.7 kg (200 lb) SpO2 97% BMI 32.28 kg/m?? GENERAL APPEARANCE: healthy, alert and no distress BREAST: right breast with tenderness and faint pink patch on lateral/upper aspect of areola, faint warmth PSYCH: alert, affect bright ASSESSMENT/PLAN: (N61.0) Acute mastitis of right breast (primary encounter diagnosis) Plan: dicloxacillin (DYNAPEN) 500 MG capsule Okay to continue with or pumping to help empty the breast. Okay for tylenol for discomfort. RX Dicloxacillin given for treatment of mastitis. Follow up with primary provider if no improvement of symptoms within 1 week Mani Gentile MD May 08, 2021 3:01 PM documented in this encounter Plan of Treatment Upcoming Encounters Date Type Specialty Care Team Description 04/28/2022 Office Visit Family Practice Anthony Doe, PAUcheC [address] [place] [address] (Wo rk) 05/03/2022 Office Visit Dermatology Neil Kent M D [address] [place], [place] [address] (Wo rk) 05/05/2022 Office Visit Optometry Yeny David, OD [address] [facility] [address] [place] [phone] (Wo rk) 05/11/2022 Virtual Visit Pharm D Diana Desir , [facility] [address] [place] [address] (Wo rk) 05/14/2022 Office Visit Cardiology Livan Sharif MD [address] [facility] [address] [place] [address] (Wo rk) 05/31/2022 Office Visit Family Practice Valery Veronica , PAUcheC [address] [place] [address] (Wo rk) documented as of this encounter Visit Diagnoses Diagnosis Acute mastitis of right breast - Primary Inflammatory disease of breast documented in this encounter Additional Health Concerns Assessment Noted Time PHQ-9 Depression Total Score: 2 04/02/2021 10:19 AM CD T documented as of this encounter Care Teams Employment And Claims Aide Relationship Specialty Start Date End Date Marija Edgar APRN PCP - General Nurse Practitioner 04/30/20 VEST FRONT PRESSER [address] [place] [address] Lita Oseguera Personal Advocate & 02/28/20 Liaison (PAL) Chanelle Mccann Assigned OBGYN Provider 05/02/20 05/09/21 ARLENE Mooney CNM [address] [place], [address] [place] [address] Marija Edgar APRN Assigned PCP 06/08/20 VEST FRONT PRESSER [address] [place] [address] Mynor Broussard MD Assigned Surgical 06/01/20 11/28/21 [address] [place] Provider [address] [place], [place] [address] Keisha Dotson, Assigned Neuroscience 06/04/20 MD Provider [address] [place], [place] [address] Galo Burrell MD Assigned Heart and 10/05/20 04/02/22 [address] Vascular Provider [place], [place] [address] Diana Desir, [facility] Pharmacist Pharmacist 04/17/[address] [place], [place] [address] Rain Galaviz Physician Vulcanized Fiber Unit Operator Dermatology 04/28/21 ROVERTO Paredes [address] [facility] [address] [place] [id number] documented as of this encounter
--- OUTSIDE RECORDS SUMMARY | 2022-04-28 01:13 | XMS_ITS | Encounter Summary ---
:2000 Author Organization [place] Address [address] [place] [address] Care Team Providers Name Role Phone Lita Oseguera Unavailable Unavailable Marija Edgar APRN VP PACKAGING Primary Care Provider [phone] Chanelle Mccann APRN CNM Unavailable + Marija Edgar APRN VP PACKAGING Unavailable Mynor Broussard MD Unavailable Keisha Dotson MD Unavailable Galo Burrell MD Unavailable Diana Desir [facility] Unavailable Reason for Visit Reason Comments Medication Therapy Management Encounter Details Date Type Department Care Team Description 04/22/2021 Virtual Visit [facility] Diana Desir, Mode rate major depression (H) (Primary Dx); Clinic [facility] KALYN (generalized anxiety disorder) [address] [address] [phone] (Wo rk) Social History Tobacco Use Types [...] How often do you attend orthodox or restoration services? Never 09/22/2021 Do [...] this encounter Patient Instructions Patient InstructionsWDiana nuñez, [facility] - 04/22/2021 11:00 AM CDT Recommendations from today's MTM visit: May consider increasing sertraline to 200 mg/day if needed. It was great to speak with you today. I value your experience and would be very thankful for your time with providing feedback on our clinic survey. You may receive a survey via email or text message in the next few days. To schedule another MTM appointment, please call the clinic directly or you may call the MTM scheduling line at [phone] or toll-free at . My Clinical Pharmacist's contact information: Please feel free to contact me with any questions or concerns you have. Diana Desir PharmD Medication Therapy Management Provider, [facility] documented in this encounter Progress Notes Diana Desir RPH - 04/22/2021 11:00 AM CDT Medication Therapy Management (MTM) Encounter ASSESSMENT: Medication Adherence/Access: No issues identified Anxiety/Depression: Stable, no medication changes today. Risks and benefits discussed regarding increasing sertraline dose. Discussion on increasing sertraline dose vs trialing SNRIs such as venlafaxine or duloxetine for anxiety and risks during . Future if depression and anxiety worsens,may consider increasing sertraline dose to 200 mg/day as preferred first line for depression rather than venlafaxine in mothers as low to undetectable amounts of sertraline is found in infants - 0.5-1% maternal weight adjusted dose. Pharmacokinetic Gene Variants Gene Phenotype Notable Medications Impacted CYP2C9 Intermediate Metabolizer fluoxetine MTHFR Reduced Conversion Pharmacodynamic Gene Variants Gene Phenotype Notable Medications Impacted SLC6A4 Intermediate Response Sertraline and other SSRIs ADRA2A Moderately Reduced Response PLAN: 1. No medication changes today. Follow-up: Return in about 1 month (around 05/23/2021) for Medication Therapy Management Pharmacist. SUBJECTIVE/OBJECTIVE: Kim Johnson is a 20 year old female called for a follow-up visit. She was referred to me from Marija Edgar CNP. Today's visit is a follow-up MTM visit from 04/17. Reason for visit: Further discussion on antidepressant medication change. Tobacco: She reports that she quit smoking [...] Would like to consider increasing sertraline dose, eventually can try switching therapy once done breast feeding. Past med trial: Buspirone (made [...] 4 4 Today's Vitals: none I spent 20 minutes with this patient today. All changes were made via collaborative practice agreement with Marija Edgar APRN CNP. A copy of the visit note was provided to the patient's primary careprovider. The patient was sent via TelemetryWeb a summary of these recommendations. Diana Desir, PharmD Medication Therapy Management Provider, [facility] Pager: [phone] Telemedicine Visit Details Type of service: Telephone visit Start Time: 11:10 AM End Time: 11:30 AM Originating Location (patient location): Home Distant Location (provider location): [facility] Medication Therapy Recommendations No medication therapy recommendations to display documented in this encounter Plan of Treatment Upcoming Encounters Date Type Specialty Care Team Description 04/28/2022 Office Visit Family Practice Anthony Doe PA-C [address] [facility] [place] [place] [phone] (Wo rk) 05/03/2022 Office Visit Dermatology Neil Kent M D [address] [place] [phone] (Wo rk) 05/05/2022 Office Visit Optometry Yeny David, OD [address] [facility] [place] [phone] (Wo rk) 05/11/2022 Virtual Visit Pharm D Diana Desir , [facility] [address] [place], [place] [address] (Wo rk) 05/14/2022 Office Visit Cardiology Livan Sharif MD [address] [facility] [address] [place], [place] [address] (Wo rk) 05/31/2022 Office Visit Family Practice Valery Veronica , PA-C [address] [place], [place] [address] (Wo rk) documented as of this encounter Visit Diagnoses Diagnosis Moderate major depression (H) - Primary Major depressive disorder, single episod e, moderate KALYN (generalized anxiety disorder) Generalized anxiety disorder documented in this encounter Additional Health Concerns Assessment Noted Time PHQ-9 Depression Total Score: 2 04/02/2021 10:19 AM CD T documented as of this encounter Care Teams Brand Ambassadors Promotional Sales Relationship Specialty Start Date End Date Marija Edgar APRN PCP - General Nurse Practitioner 04/30/20 VP PACKAGING [address] [place], [place] [phone] Lita Oseguera Personal Advocate & 02/28/20 Liaison (PAL) Chanelle Mccann Assigned OBGYN Provider 05/02/20 05/09/21 [place] [address], [facility] [address] [place], [place] [address] Marija Edgar APRN Assigned PCP 06/08/20 VP PACKAGING [address] [place], [place] [phone] Mynor Broussard MD Assigned Surgical 06/01/20 11/28/21 [address] [place] Provider [address] [place], [place] [address] Keisha Dotson, Assigned Neuroscience 06/04/20 MD Provider [address] [place], [place] [address] Galo Burrell MD Assigned Heart and 10/05/20 04/02/22 [address] Vascular Provider [place], [place] [address] Diana Desir, [facility] Pharmacist Pharmacist 04/17/21 [address] [place], [place] [address] documented as of this encounter
--- OUTSIDE RECORDS SUMMARY | 2022-04-28 01:13 | XMS_ITS | Encounter Summary ---
:2000 Author Organization [place] Address [address] [place] [address] Care Team Providers Name Role Phone Lita Oseguera Unavailable Unavailable Marija Edgar APRN REVENUE ENFORCEMENT COLLECTION AGENT Primary Care Provider [phone] Chanelle Mccann SUPERVISOR TELEPHONE CLERKS CNM Unavailable + Marija Edgar APRN REVENUE ENFORCEMENT COLLECTION AGENT Unavailable Mynor Broussard MD Unavailable Keisha Dotson MD Unavailable Galo Burrell MD Unavailable Diana Desir [facility] Unavailable Rain Galaviz PA-C Unavailable [phone] Encounter Details Date Type Department Care Team Description 05/08/2021 Travel Social History Tobacco Use Types Packs/Day [...] How often do you attend tenriism or congregational services? Never 09/22/2021 Do you [...] Office Visit Family Practice Anthony Doe, [place] [address] [place], [place] [phone] (Wo rk) 05/03/2022 Office Visit Dermatology Neil Kent M D [address] [place], [place] [address] (Wo rk) 05/05/2022 Office Visit Optometry Yeny David, OD [address] [facility] [address] [place] [phone] (Wo rk) 05/11/2022 Virtual Visit Pharm D Diana Desir , [facility] [address] [place], [place] [address] (Wo rk) 05/14/2022 Office Visit Cardiology Livan Sharif MD [address], [facility] [address] [place] [address] (Wo rk) 05/31/2022 Office Visit Family Practice Valery Veronica , PA-C [address] [place], [place] [address] (Wo rk) documented as of this encounter Visit Diagnoses Not on filedocumented in this encounter Additional Health Concerns Assessment Noted Time PHQ-9 Depression Total Score: 2 04/02/2021 10:19 AM CD T documented as of this encounter Care Teams Dials Inspector Relationship Specialty Start Date End Date Marija Edgar APRN PCP - General Nurse Practitioner 04/30/20 REVENUE ENFORCEMENT COLLECTION AGENT [address] [place] [address] Lita Oseguera Personal Advocate & 02/28/20 Liaison (PAL) Chanelle Mccann Assigned OBGYN Provider 05/02/20 05/09/21 [place] [address] [address] [facility] [address] [place], [place] [address] Marija Edgar APRN Assigned PCP 06/08/20 REVENUE ENFORCEMENT COLLECTION AGENT [address] [place] [address] Mynor Broussard MD Assigned Surgical 06/01/20 11/28/21 [address] Provider [address] [place] [address] Keisha Dotson, Assigned Neuroscience 06/04/20 Provider [address] [place], [place] [address] Galo Burrell MD Assigned Heart and 10/05/20 04/02/22 [address] Vascular Provider [place], [place] [address] Diana Desir, [facility] Pharmacist Pharmacist 04/17/21 [address] [place], [place] [address] Rain Galaviz Physician Warehouse Assembly Worker Dermatology 04/28/21 ROVERTO Paredes [address] [facility] [address] [place] [facility] [facility] [place] [phone] documented as of this encounter
--- OUTSIDE RECORDS SUMMARY | 2022-04-28 01:13 | XMS_ITS | Encounter Summary ---
:2000 Author Organization [place] Address [address] [place] [address] Care Team Providers Name Role Phone Lita Oseguera Unavailable Unavailable Marija Edgar APRN SPEED RUNNER Primary Care Provider [phone] Chanelle Mccann GROUND INTELLIGENCE OFFICER CNM Unavailable + Marija Edgar APRN SPEED RUNNER Unavailable Mynor Broussard MD Unavailable Keisha Dotson MD Unavailable Galo Burrell MD Unavailable Diana Desir [facility] Unavailable Rain Galaviz PA-C Unavailable [phone] Reason for Visit Reason Onset Date Comments Clinic Care Coordination - Follow-up 05/01/2021 Encounter Details Date Type Department Care Team Description 05/01/2021 Telephone [facility] Joanne Portillo RN Clinic Care Coordination Clinic [place] - Follow-up [address] [facility] [address] [place] [address] Social History [...] How often do you attend judaism or religion services? Never 09/22/2021 Do you belong to [...] encounter Miscellaneous Notes Telephone Encounter - Joanne Portillo, VJ - 05/01/2021 12:00 PM CDT 05/01/21 Pt called in asking for results of recent 10 day monitor. Explained that recent monitor showed 1 episode of SVT HR 102-108 with average 105. Pt was surprised as she continues to have fluttering feeling in my chest, especially when she goes up the steps. Explained she also had 24 times where she had triggered events, all of which was when she showed ST. Explained that ST can be caused by dehydration, caffeine, sugar, anxiety or other stimulants and to watch her intake of that. Explained that the physical exertion of going up steps can also trigger an increased Hr . Encouraged pt to purchase a home device ( Ie Fitbit ) to continue to monitor Hrs over the next few weeks and to call back if palpitations continue to be a problem. She stated she is not ready for an Ablation just yet. Explain the its ok to monitor until palpitations get so bothersome she cannot tolerate and at that time she can revisit an Ablation per Dr Burrell. Pt voiced understanding and agreement with plan. Michelle 1208 pm documented in this encounter Plan of Treatment Upcoming Encounters Date Type Specialty Care Team Description 04/28/2022 Office Visit Family [facility] Anthony Doe, PAUcheC [address] [place] [address] (Wo rk) 05/03/2022 Office Visit Dermatology Neil Kent M D [address] [place], [place] [address] (Wo rk) 05/05/2022 Office Visit Optometry Yeny David, OD [address] [facility] [address] [place], [place] [phone] (Wo rk) 05/11/2022 Virtual Visit Pharm D Diana Desir , [facility] [address] [place], [place] [address] (Wo rk) 05/14/2022 Office Visit Cardiology Livan Sharif MD [address] [facility] [address] [place], [place] [address] (Wo rk) 05/31/2022 Office Visit Family [facility] Valery Veronica PAUcheC [address] [place], [place] [address] (Wo rk) documented as of this encounter Visit Diagnoses Not on filedocumented in this encounter Additional Health Concerns Assessment Noted Time PHQ-9 Depression Total Score: 2 04/02/2021 10:19 AM CD T documented as of this encounter Care Teams Wire Stretcher Relationship Specialty Start Date End Date Marija Edgar APRN PCP - General Nurse Practitioner 04/30/20 SPEED RUNNER [address] [place] [address] Lita Oseguera Personal Advocate & 02/28/20 Liaison (PAL) Chanelle Mccann Assigned OBGYN Provider 05/02/20 05/09/21 [place] [address] [address] [facility] 200 [place] [address] Marija Edgar APRN Assigned PCP 06/08/20 SPEED RUNNER [address] [place] [address] Mynor Broussard MD Assigned Surgical 06/01/20 11/28/21 [address] [place] Provider [address] [place], [place] [address] Keisha Dotson, Assigned Neuroscience 06/04/20 MD Provider [address] [place], [place] [address] Galo Burrell MD Assigned Heart and 10/05/20 04/02/22 [address] Vascular Provider [place], [place] [address] Diana Desir, [facility] Pharmacist Pharmacist 04/17/21 [address] [place] [address] Rain Galaviz Physician Lock Operator Dermatology 04/28/21 ROVERTO Paredes [address] [facility] [address] [place], [place] [address] documented as of this encounter
--- OUTSIDE RECORDS SUMMARY | 2022-04-28 01:13 | XMS_ITS | Encounter Summary ---
:2000 Author Organization [place] Address [address] [place] [address] Care Team Providers Name Role Phone Lita Oseguera Unavailable Unavailable Marija Edgar APRN SHIFT FOREMAN Primary Care Provider [phone] Chanelle Mccann PATTERNMAKER PLASTICS CNM Unavailable + Marija Edgar APRN SHIFT FOREMAN Unavailable Mynor Broussard MD Unavailable Keisha Dotson MD Unavailable Galo Burrell MD Unavailable Diana Desir [facility] Unavailable Reason for Visit Reason Comments Abdominal Pain LLQ, L Flank pain X 3 days Consultation (Routine) - Closed Specialty Diagnoses / Procedures Referred By Contact Refer red To Contact Diagnoses Abdominal pain, left lower quadrant Adin Delatorre MD [facility] [address] [place] [address] [address] [place] [address] Phone: Fax: Referral ID Status Reason Start Date Expiration Date Visits Requ ested Visits Authorized [id number] Closed 04/16/2021 04/16/2022 1 1 Encounter Details Date Type Department Care Team Description 04/17/2021 Office Visit [facility] Adin Delatorre MD [address] [place], [place] [id number] Left ovarian cyst (Primary Dx); [facility] [address] [facility] [address] [place], [place] [id number] Abdominal pain, left lower quadrant [address] [place] [address] Social History Tobacco Use Types Packs/Day Years [...] week 09/22/2021 How often do you attend uatsdin or restorationism services? Never 09/22/2021 Do you belong to any clubs or organizations such as No 09/22/2021 uatsdin groups, unions, fraternal or athletic groups, or [...] Sign Reading Time Taken Comments Blood Pressure 109/72 04/17/2021 9:42 AM CDT Pulse 76 04/17/2021 9:42 AM CDT Temperature 36.9 ??C (98.5 ??F) 04/17/2021 9:42 AM CDT Respiratory Rate 18 04/17/2021 9:42 AM CDT Oxygen Saturation 98% 04/17/2021 9:42 AM CDT Inhaled Oxygen Concentration - - Weight 91.6 kg (202 lb) 04/17/2021 9:42 AM CDT Height - - Body Mass Index 32.6 04/16/2021 6:29 PM CDT documented in this encounter Patient Instructions Patient InstructionsMagdalena Boone MD - 04/17/2021 9:15 AM CDT Images from the original note were not included. Patient Education Ovarian Cysts The ovaries are two small organs located on each side of a woman???s womb (uterus). They are part ofthe female reproductive system. Ovarian cysts are sacs filled with fluid or tissue that forms on or inside the ovaries. Ovarian cysts are common in women, especially during childbearing years. There are different types of cysts. Most are harmless (benign) and go away on their own. They often cause no symptoms. If symptoms do occur, they can include mild pain or pressure in the lower belly (abdomen). Cysts that are large or break (rupture) may cause more severe pain and symptoms. In these cases, youmay need hospital care or treatment such as surgery. You may need more extensive treatment if a cystcauses an ovary to twist (called torsion) or if your healthcare provider suspects your cyst is cancerous. Keep in mind that most cysts are not cancerous, however. General care ?? To help relieve pain, your healthcare provider may recommend using [id number]-pftylpi pain medicine. If needed, your provider may prescribe stronger pain medicine. ?? Depending on the type of cyst you have, your healthcare provider may advise taking control pills. These help shrink cysts in certain cases. They may also help prevent new cysts from forming. Be sure to take these medicines as directed if they are prescribed. ?? Your healthcare provider may advise you to watch your symptoms over time to see if they go away or worsen. Regular ultrasound tests may also be advised. These can help check if a cyst goes away or grows in size. Follow-up care Follow up with your healthcare provider, or as advised. When to seek medical advice Call your healthcare provider right away if any of these occur: ?? Pain gets worse or doesn't get better with home treatment ?? Fever of 100.4??F (38??C) or higher, or as advised by your provider ?? Nausea and vomiting ?? Weakness, dizziness, or fainting ?? Abnormal vaginal bleeding [employer] last reviewed this educational content on 01/09/2020 ?? 1309-3500 [employer]. All rights reserved. This information is not intended as a substitute for professional medical care. Always follow your healthcare professional's instructions. documented in this encounter Progress Notes Magdalena Boone MD - 04/17/2021 9:15 AM CDT Assessment & Plan Abdominal pain, left lower quadrant: several day history of left lower abdominal pain, radiating to the back and left thigh. Comes and goes, crampy and wakes her from sleep at times due to severity. She was seen yesterday and had UA, UPT, wet prep - all unremarkable. Came to the [facility] today for ongoing intermittent pain. We completed a CT scan here showing only a small left ovarian cyst and trace free fluid suggesting this is her likely cause of pain given otherwise normal findings. She does not have fevers, positive UA other than blood (suspect this is menstrual blood given there are also squamous cells on UA and she is spotting) nor any CT findings to suggest intra-abdominal infection or pyelonephritis. Did have IUD placed 2 weeks ago - this is in normal position - may also be contributing. - Referral to Acute and Diagnostic Services (Day of diagnostic / First order acute) - sodium chloride (PF) 0.9% PF flush 3 mL 30 minutes spent on the date of the encounter doing chart review, review of test results, interpretation of tests, patient visit and documentation Return in about 5 days (around 04/22/2021) for with PCP if your symptoms are not improving, sooner if worsening. Magdalena Boone MD [facility] TAINA Alvarez is a 20 year old who presents for the following health issues HPI Abdominal/Flank Pain Onset/Duration: X 3 days Description: Character: Cramping Location: left lower quadrant abdominal and left low side and back pain - radiates to anterior left thigh sometimes Radiation: Back and thigh Intensity: moderate, severe - comes and goes Progression of Symptoms: Not getting better or worse Accompanying Signs & Symptoms: Fever/Chills: no Gas/Bloating: YES- gas Nausea: YES Vomitting: no Diarrhea: YES Constipation: no Dysuria or Hematuria: YES- Hematuria found in UA at yesterday. Patient also notes she is spottingas well. History: Trauma: no Previous similar pain: YES- kidney infections as a child, symptoms were similar Previous tests done: UA done yesterday in Also had IUD placed 2 weeks ago Precipitating factors: Does the pain change with: Food: no Bowel Movement: no Urination: no Other factors: no Therapies tried and outcome: None No LMP recorded. (Menstrual status: IUD). - has not tried any meds Review of Systems No fever, chills, vomiting. Has had some nausea, especially when pain is severe. No chest pain, shortness of breath, vaginal discharge other than some light spotting (blood) Objective BP 109/72 (BP Location: Left arm, Patient Position: Chair, Cuff Size: Adult Large) Pulse 76 Temp98.5 ??F (36.9 ??C) (Oral) Resp 18 Wt 91.6 kg (202 lb) LMP 04/03/2021 (Within Days) SpO2 98% BMI 32.60 kg/m?? Body mass index is 32.6 kg/m??. Physical Exam Gen: alert, well appearing, no distress Abdomen: soft, mild LLQ tenderness, not distended, no guarding or rebound, normal bowel sounds. No left flank pain Low back: no palpable pain Pain not elicited with movement or positional changes CT Abdomen Pelvis w Contrast Result Date: 04/17/2021 CT ABDOMEN AND PELVIS WITH CONTRAST 04/17/2021 IMPRESSION: 1. Left ovarian cyst measures 2.0 cm and is associated with trace pelvic free fluid, possibly the cause of left lower quadrant pain. 2. No evidence of renal stone disease or diverticulitis.MULU HAWKINS MD documented in this encounter Plan of Treatment Upcoming Encounters Date Type Specialty Care Team Description 04/28/2022 Office Visit Family Practice Anthony Doe PAUcheC [address] [place] [address] (Wo rk) 05/03/2022 Office Visit Dermatology Neil Kent M D [address] [place] [address] (Wo rk) 05/05/2022 Office Visit Optometry Yeny David, OD [address] [address] [place] [phone] (Wo rk) 05/11/2022 Virtual Visit Pharm Diana Eckert , [facility] [address] [place], [place] [address] (Wo rk) 05/14/2022 Office Visit Cardiology Livan Sharif MD [address] [facility] [address] , [facility] [address] [place], [place] [address] (Wo rk) 05/31/2022 Office Visit Family Practice Valery Veronica PA-C [address] [place], [place] [address] (Wo rk) documented as of this encounter Visit Diagnoses Diagnosis Left ovarian cyst - Primary Other and unspecified ovarian cyst Abdominal pain, left lower quadrant documented in this encounter Administered Medications Inactive Administered Medications - up to 3 most recent administrations Medication Order MAR Action Action Date Dose Rate Site sodium chloride (PF) 0.9% PF flush Given 04/17/2021 10:18 AM CDT 3 mLs 3 mL 3 mL, Intravenous, EVERY 1 HOUR PRN, line flush, post meds or blood draw, Starting on Tue04/17/21 at 1016 documented in this encounter Additional Health Concerns Assessment Noted Time PHQ-9 Depression Total Score: 2 04/02/2021 10:19 AM CD T documented as of this encounter Care Teams Volunteer Services Assistant Relationship Specialty Start Date End Date Marija Edgar APRN PCP - General Nurse Practitioner 04/30/20 SHIFT FOREMAN [address] [place] [address] Lita Oseguera Personal Advocate & 02/28/20 Liaison (PAL) Chanelle Mccann Assigned OBGYN Provider 05/02/20 05/09/21 ARLENE Mooney [facility] [address] [address] [address] [place] [address] Marija Edgar APRN Assigned PCP 06/08/20 SHIFT FOREMAN [address] [place] [address] Mynor Broussard MD Assigned Surgical 06/01/20 11/28/21 [address] Provider [address] [place], [place] [address] Keisha Dotson, Assigned Neuroscience 06/04/[address] [place], [place] [address] Galo Burrell MD Assigned Heart and 10/05/20 04/02/22 [address] [place] [address] Diana Desir, [facility] Pharmacist Pharmacist 04/17/21 [address] [place] [address] documented as of this encounter
--- OUTSIDE RECORDS SUMMARY | 2022-04-28 01:13 | XMS_ITS | Encounter Summary ---
:2000 Author Organization [place] Address [address] [place] [address] Care Team Providers Name Role Phone Lita Oseguera Unavailable Unavailable Marija Edgar APRN CHILD PSYCHOLOGIST Primary Care Provider [phone] Chanelle Mccann DIRECTOR OF LEARNING CNM Unavailable + Marija Edgar APRN CHILD PSYCHOLOGIST Unavailable Mynor Broussard MD Unavailable Keisha Dotson MD Unavailable Galo Burrell MD Unavailable Diana Desir [facility] Unavailable Rain Galaviz PA-C Unavailable [phone] Encounter Details Date Type Department Care Team Description 04/28/2021 Travel Social History Tobacco Use Types Packs/Day [...] How often do you attend worship or latter-day services? Never 09/22/2021 Do you [...] Office Visit Family Practice Anthony Doe, [place] [address] [place], [place] [phone] (Wo rk) 05/03/2022 Office Visit Dermatology Neil Kent M D [address] [place], [place] [address] (Wo rk) 05/05/2022 Office Visit Optometry Yeny David, OD [address] [place] [phone] (Jefferson carlson) 05/11/2022 Virtual Visit Pharm D Diana Desir , [facility] [address] [place], [place] [address] (Wo rk) 05/14/2022 Office Visit Cardiology Livan Sharif MD [address], [facility] [address] [place] [address] (Wo rk) 05/31/2022 Office Visit Family Practice Valery Veronica , PA-C [address] [place], [place] [address] (Wo rk) documented as of this encounter Visit Diagnoses Not on filedocumented in this encounter Additional Health Concerns Assessment Noted Time PHQ-9 Depression Total Score: 2 04/02/2021 10:19 AM CD T documented as of this encounter Care Teams Tower Supervisor Relationship Specialty Start Date End Date Marija Edgar APRN PCP - General Nurse Practitioner 04/30/20 CHILD PSYCHOLOGIST [address] [place] [address] Lita Oseguera Personal Advocate & 02/28/20 Liaison (PAL) Chanelle Mccann Assigned OBGYN Provider 05/02/20 05/09/21 [place] [address] [address] [facility], [facility] [address] [place] [address] Marija Edgar APRN Assigned PCP 06/08/20 CHILD PSYCHOLOGIST [address] [place] [address] Mynor Broussard MD Assigned Surgical 06/01/20 11/28/21 [address] Provider [address] [place] [address] Keisha Dotson, Assigned Neuroscience 06/04/20 Provider 9 [place] [address] Galo Burrell MD Assigned Heart and 10/05/20 04/02/22 [address] [place] [address] Diana Desir, [facility] Pharmacist Pharmacist 04/17/21 [address] [place], [place] [address] Rain Galaviz Physician Fabricator Industrial Furnace Dermatology 04/28/21 [place] Paredes [address] [facility] [address] [place] [facility] [place] [phone] documented as of this encounter
--- OUTSIDE RECORDS SUMMARY | 2022-04-28 01:13 | XMS_ITS | Encounter Summary ---
:2000 Author Organization [place] Address [address] [place] [address] Care Team Providers Name Role Phone Lita Oseguera Unavailable Unavailable Marija Edgar APRN LEAD INFORMATICA DEVELOPER Primary Care Provider [phone] Chanelle Mccann PHARMACY INFORMATICIST CNM Unavailable + Marija Edgar APRN LEAD INFORMATICA DEVELOPER Unavailable Mynor Broussard MD Unavailable Keisha Dotson MD Unavailable Galo Burrell MD Unavailable Diana Desir [facility] Unavailable Rain Galaviz PA-C Unavailable [phone] Reason for Visit Reason Onset Date Comments Symptoms 04/28/2021 Psoriasis breakout w [facility] bleeding Call Back 04/28/2021 Pt missed call Encounter Details Date Type Department Care Team Description 04/28/2021 Telephone [facility] Rain Galaviz (Psoriasis Clinic [place] Paredes breakout with [address] bleeding); Call Back [address] (Pt missed call ) [place] [phone] (Wo rk) Social History Tobacco Use Types [...] How often do you attend caodaism or advent services? Never 09/22/2021 Do you [...] Telephone Encounter - Lauren Gan RN - 04/28/2021 4:36 PM CDT Last Read in [employer] 04/29/2021 ??7:19 AM by Kim Johnson [employer] message sent: Soham Alvarez- It looks like you have an appointment scheduled for 07/15/21. You have been added to our wait list. I suggest going to urgent care or following up with your primary care provider if your symptoms are getting worse. You can call our Dermatology scheduling line [phone] and have them check all Derm schedules throughout the system. I know Nilesh Barrios, and Alberta Watson have Derm providers. Let me know if you have any questions. VJ Jackson-ARIESN-[facility] [phone] Telephone Encounter - Servando Da Silva - 04/28/2021 11:36 AM CDT Pt returned call, please call her back. Telephone Encounter - Pattie Mina - 04/28/2021 11:35 AM CDT [facility] Phone Message May a detailed message be left on voicemail: yes Reason for Call: Pt missed call, I tried back line and no answer. Please try call Pt back. Thank you Action Taken: Message routed to: [facility] ([facility]): Derm Travel Screening: Not Applicable Telephone Encounter - Lauren Gan RN - 04/28/2021 11:17 AM CDT Called and LM for patient to call back. VJ Jackson-[facility] [phone] Telephone Encounter - Ursula Gu - 04/28/2021 10:54 AM CDT [facility] Phone Message May a detailed message be left on voicemail: yes Reason for Call: Symptoms or Concerns If patient has red-flag symptoms, warm transfer to triage line Current symptom or concern: Psoriasis breakout with bleeding Symptoms have been present for: ? week(s) Has patient previously been seen for this? Yes By : Marija Edgar APRN CNP Date: 04/14/21 MyChart Are there any new or worsening symptoms? Yes: See above. Pt states psoriasis has gotten worse since the of her baby and she is . Pt is scheduled for 07/15/21 and is on the wait list. Action Taken: Other: OX Derm Travel Screening: Not Applicable documented in this encounter Plan of Treatment Upcoming Encounters Date Type Specialty Care Team Description 04/28/2022 Office Visit Family [facility] Anthony Doe, PA-C [address] [place], [place] [phone] (Wo rk) 05/03/2022 Office Visit Dermatology Neil Kent M D [address] [place] [address] (Wo rk) 05/05/2022 Office Visit Optometry Yeny David, OD [address] [facility] [facility] [address] [place] [phone] (Wo rk) 05/11/2022 Virtual Visit Pharm D Diana Desir , [facility] [address] [place], [place] [address] (Wo rk) 05/14/2022 Office Visit Cardiology Livan Sharif MD [address] [place], [place] [address] (Wo rk) 05/31/2022 Office Visit Family [facility] Valery Veronica , PA-C [address] [place], [place] [address] (Wo rk) documented as of this encounter Visit Diagnoses Not on filedocumented in this encounter Additional Health Concerns Assessment Noted Time PHQ-9 Depression Total Score: 2 04/02/2021 10:19 AM CD T documented as of this encounter Care Teams Sap Basis Architect Relationship Specialty Start Date End Date Marija Edgar APRN PCP - General Nurse Practitioner 04/30/20 LEAD INFORMATICA DEVELOPER [address] [place] [address] Lita Oseguera Personal Advocate & 02/28/20 Liaison (PAL) Chanelle Mccann Assigned OBGYN Provider 05/02/20 05/09/21 [place] [address] [address] [facility] [address] [place] [address] Marija Edgar APRN Assigned PCP 06/08/20 LEAD INFORMATICA DEVELOPER [address] [place], [place] [phone] Mynor Broussard MD Assigned Surgical 06/01/20 11/28/21 [address] [facility] Provider [address] [place], [place] [address] Keisha Dotsno, Assigned Neuroscience 06/04/20 MD Provider [address] [place], [place] [address] Galo Burrell MD Assigned Heart and 10/05/20 04/02/22 [address] Vascular Provider [place], [place] [address] Diana Desir, [facility] Pharmacist Pharmacist 04/17/21 [address] [place] [address] Rain Galaviz Physician Steel Fixer Dermatology 04/28/21 [place] Paredes [address] [facility] [address] [facility] [place] [address] documented as of this encounter
--- OUTSIDE RECORDS SUMMARY | 2022-04-28 01:14 | XMS_ITS | Encounter Summary ---
:2000 Author Organization [place] Address [address] [place] [address] Care Team Providers Name Role Phone Lita Oseguera Unavailable Unavailable Marija Edgar APRN MOLDED GOODS INSPECTOR TRIMMER Primary Care Provider [phone] Chanelle Mccann APRN CNM Unavailable + Marija Edgar APRN MOLDED GOODS INSPECTOR TRIMMER Unavailable Mynor Broussard MD Unavailable Keisha Dotson MD Unavailable Galo Burrell MD Unavailable Encounter Details Date Type Department Care Team Description 03/06/2021 Travel Social History Tobacco Use Types Packs/Day [...] How often do you attend restorationism or mosque services? Never 09/22/2021 Do you [...] been in contact with No / Unsure 03/06/2021 3:52 PM CDT someone who was confirmed or suspected to have Coronavirus / COVID-19? documented as of this encounter Plan of Treatment Upcoming Encounters Date Type Specialty Care Team Description 04/28/2022 Office Visit Family Practice Anthony Doe, [place] [address] [place], [place] [phone] (Wo rk) 05/03/2022 Office Visit Dermatology Neil Kent M D [address] [place], [place] [address] (Wo rk) 05/05/2022 Office Visit Optometry Yeny David, OD [address] [facility] [place] [address] (Wo rk) 05/11/2022 Virtual Visit Pharm D Diana Desir , [facility] [address] [place], [place] [address] (Jefferson carlson) 05/14/2022 Office Visit Cardiology Livan Sharif MD [address] [place] [address] (Wo rk) 05/31/2022 Office Visit Family Practice Valery Veronica , PA-C [address] [place], [place] [address] (Wo rk) documented as of this encounter Visit Diagnoses Not on filedocumented in this encounter Additional Health Concerns Assessment Noted Time PHQ-9 Depression Total Score: 2 03/03/2021 7:02 AM CDT documented as of this encounter Care Teams Skin Care Therapist Relationship Specialty Start Date End Date Marija Edgar APRN PCP - General Nurse Practitioner 04/30/20 MOLDED GOODS INSPECTOR TRIMMER [address] [place] [address] Lita Oseguera Personal Advocate & 02/28/20 Liaison (PAL) Chanelle Mccann Assigned OBGYN Provider 05/02/20 05/09/21 [place] [address] [address] [facility] [address] [place], [place] [address] Marija Edgar APRN Assigned PCP 06/08/20 MOLDED GOODS INSPECTOR TRIMMER [address] [place], [place] [phone] Mynor Broussard MD Assigned Surgical 06/01/20 11/28/21 [address] [facility] Provider [address] [place] [address] Mauri, Assigned Neuroscience 06/04/20 MD Keisha Provider [address] [place] [address] Galo Burrell MD Assigned Heart and 10/05/20 04/02/22 [address] Vascular Provider [address] [place] [address] documented as of this encounter
--- OUTSIDE RECORDS SUMMARY | 2022-04-28 01:14 | XMS_ITS | Encounter Summary ---
:2000 Author Organization [facility] Address [address] [place] [address]. [place] [address] Care Team Providers Name Role Phone Lita Oseguera Unavailable Unavailable Marija Edgar APRN SILVERWARE CLEANER Primary Care Provider [phone] Chanelle Mccann APRN CNM Unavailable + Kyara De La Fuente RN Unavailable Marija Edgar APRN SILVERWARE CLEANER Unavailable Mynor Broussard MD Unavailable Keisha Dotson MD Unavailable Galo Burrell MD Unavailable Reason for Visit Reason Comments Recheck Medication Encounter Details Date Type Department Care Team Description 03/03/[address] [facility] Marija Edgar Modera te major depression (H) (Primary Dx); [facility] [place] CASKET INSPECTOR SILVERWARE CLEANER Epigastric pain; [address] [address] [address] Psoriasis; [place], [place] Elevate d d-dimer; [id number] Other iron deficiency anemia; [phone] Unprotected sex ual intercourse (Work) Social History Tobacco Use Types Packs/Day [...] week 09/22/2021 How often do you attend mu-ism or hindu services? Never 09/22/2021 Do you belong to any clubs or organizations such as No 09/22/2021 mu-ism groups, unions, fraternal or athletic groups, or [...] been in contact with No / Unsure 03/03/2021 4:26 PM CDT someone who was confirmed or suspected to have Coronavirus / COVID-19? documented as of this encounter Last Filed Vital Signs Vital Sign Reading Time Taken Comments Blood Pressure 118/78 03/03/2021 4:39 PM CDT Pulse 78 03/03/2021 4:39 PM CDT Temperature 36.8 ??C (98.2 ??F) 03/03/2021 4:39 PM CDT Respiratory Rate 18 03/03/2021 4:39 PM CDT Oxygen Saturation 99% 03/03/2021 4:39 PM CDT Inhaled Oxygen Concentration - - Weight 94.8 kg (209 lb) 03/03/2021 4:39 PM CDT Height 142.2 cm (4' 8) 03/03/2021 4:39 PM CDT Body Mass Index 46.86 03/03/2021 4:39 PM CDT documented in this encounter Progress Notes Marija Edgar APRN CNP - 03/03/2021 5:00 PM CDT Assessment & Plan Moderate major depression (H) Currently controlled. Would like to consider GeneSight testing in future. Will follow-up as needed. Epigastric pain Controlled. Discussed risks and will use as needed. - omeprazole (PRILOSEC) [address] capsule Dispense: 90 capsule; Refill: 0 Psoriasis Uncontrolled. Will use topical sparingly due to risks. - hydrocortisone (WESTCORT) 0.2 % external cream Dispense: 60 g; Refill: 0 Elevated d-dimer Update level. Previous workup negative. - D dimer, quantitative - D dimer, quantitative Other iron deficiency anemia Update levels. Continue vitamin and consider addition iron supplement pending iron levels. - CBC with platelets - Iron and iron binding capacity - Comprehensive metabolic panel (BMP + Alb, Alk Phos, ALT, AST, Total. Bili, TP) - CBC with platelets - Iron and iron binding capacity - Comprehensive metabolic panel (BMP + Alb, Alk Phos, ALT, AST, Total. Bili, TP) Unprotected sexual intercourse Screen . - HCG Qual, Urine ([id number]) Return in about 4 weeks (around 03/31/2021) for In-Clinic Visit for GeneSight testing. . Marija Edgar APRN CNP [facility] Dario Alvarez is a 20 year old who presents for the following health issues History of Present Illness Mental Health Follow-up: Patient presents to follow-up on Anxiety. Patient's anxiety since last visit has been: Better The patient is not having other symptoms associated with anxiety. Any significant life events: other Patient is not feeling anxious or having panic attacks. Patient has no concerns about alcohol or drug use. Social History Tobacco Use Smoking status: Former Smoker Packs/day: 1.00 Types: Other Quit date: 12/07/2019 Years since quittin.2 Smokeless tobacco: Never Used Alcohol use: Not Currently Drug use: No Today's PHQ-9 PHQ-9 Total Score: (P) 2 PHQ-9 Q9 Thoughts of better off /self-harm past 2 weeks : (P) Not at all Thoughts of suicide or self harm: Self-harm Plan: Self-harm Action: Safety concerns for self or others: Migraines: Since the patient's last clinic visit, headaches are: no change The patient is getting headaches: Couple days a week (could be from just having a baby or my eyes) She is able to do normal daily activities when she has a migraine. The patient is taking the following rescue/relief medications: No rescue/relief medications and Tylenol Patient states I get some relief from the rescue/relief medications. The patient is taking the following medications to prevent migraines: No medications to prevent migraines In the past 4 weeks, the patient has gone to an Urgent Care or Emergency Room 0 times times due to headaches. She eats 2-3 servings of fruits and vegetables daily.She consumes 0 sweetened beverage(s) daily.She exercises with enough effort to increase her heart rate 9 or less minutes per day. She exercises withenough effort to increase her heart rate 3 or less days per week. She is taking medications regularly. MDD and anxiety feels controlled at this time. Significant history of symptoms during and previous. Is anxious about what her mood will do in future. Denies SI. Is exclusively . Had unprotected intercourse last week with partner. Had elevated D dimer during , workup negative. Was to monitor to ensure D-dimer lowers. Had lower iron during , had first periods since delivery and feeling lower iron levels. Getting IUD 03/12/21. Psoriasis is flaring. No creams on hand. PHQ 06/24/2020 09/29/2020 03/02/2021 PHQ-9 Total Score 9 6 2 Q9: Thoughts of better off /self-harm past 2 weeks Not at all Not at all Not at all KALYN-7 SCORE 09/29/2020 09/29/2020 03/02/2021 Total Score - 12 (moderate anxiety) 4 (minimal anxiety) Total Score 12 14 4 Review of Systems Constitutional, HEENT, cardiovascular, pulmonary, gi and gu systems are negative, except as otherwise noted. Objective BP 118/78 (BP Location: Right arm, Patient Position: Sitting, Cuff Size: Adult Large) Pulse 78 Temp 98.2 ??F (36.8 ??C) (Oral) Resp 18 Ht 1.422 m (4' 8) Wt 94.8 kg (209 lb) LMP 04/29/2020 SpO2 99% BMI 46.86 kg/m?? Body mass index is 46.86 kg/m??. Physical Exam GENERAL: healthy, alert and no distress RESP: lungs clear to auscultation - no rales, rhonchi or wheezes CV: regular rate and rhythm, normal S1 S2, no S3 or S4, no murmur, click or rub, no peripheral edemaand peripheral pulses strong SKIN: psoriasis plaques throughtout Answers for HPI/ROS submitted by the patient on 03/02/2021 If you checked off any problems, how difficult have these problems made it for you to do your work, take care of things at home, or get along with other people?: Somewhat difficult PHQ9 TOTAL SCORE: 2 KALYN 7 TOTAL SCORE: 4 documented in this encounter Plan of Treatment Upcoming Encounters Date Type Specialty Care Team Description 04/28/2022 Office Visit Family Practice Anthony Doe, PAUcheC [address] [place] [address] (Jefferson carlson) 05/03/2022 Office Visit Dermatology Neil Kent M D [address] [place], [place] [phone] (Jefferson carlson) 05/05/2022 Office Visit Optometry Yeny David, OD [address] [place] [id number] (Jefferson carlson) 05/11/2022 Virtual Visit Pharm Diana Eckert , [facility] [address] [place], [place] [address] (Jefferson carlson) 05/14/2022 Office Visit Cardiology Livan Sharif MD [address] [place] [address] (Wo rk) 05/31/2022 Office Visit Family Practice Valery Veronica PA-C [address] [place] [address] (Wo rk) documented as of this encounter Procedures Procedure Name Priority Date/Time Associated Comments Diagnosis HCG QUALITATIVE URINE Routine 03/03/2021 5:30 PM Unprotected s exual Results for this CDT intercourse procedure are i n the results section. IRON AND IRON BINDING Routine 03/03/2021 5:30 PM Other iron Results for this CAPACITY CDT deficiency anemia procedure are in the results section. D DIMER QUANTITATIVE Routine 03/03/2021 5:30 PM Elevated d-dim er Results for this CDT procedure are i n the results section. COMPREHENSIVE Routine 03/03/2021 5:30 PM Other iron Results for this METABOLIC PANEL CDT deficiency anemia procedu re are in the results section. CBC WITH PLATELETS Routine 03/03/2021 5:30 PM Other iron Res ults for this CDT deficiency anemia procedure are in the results section. documented in this encounter Results HCG Qual, Urine ([id number]) (03/03/2021 5:30 PM CDT) [facility] Method Time Signature hCG Urine Negative Negative REINA 03/03/2021 [facility] Qualitative 5:53 PM CDT Comment: This test is for screening purp oses. Results should be interpreted along with the clinical picture. Confirmation testing is available if warranted by ordering [id number], HCG Quantitative . Specimen Anatomical Collection Method Collection Time Receive d Time (Source) Location / / Volume Laterality Urine MID-STREAM URINE Non-blood 03/03/2021 5:30 PM 03/03 5:30 SPECIMEN / Unknown Collection / CDT PM CDT Unknown Marija Edgar APRN, CNP LAB - URINE ORDERABLES Performing Organization Address City/State/ZIP Code Phon e Number CR LABORATORY [place] [address] [place] [address] [facility] (no room number, 1st floor of clinic) [facility] [place], [place] [phone] [facility] [address], [facility] Lab [address] [facility] (no room number, 1st floor of [facility]) (ABNORMAL) Comprehensive metabolic panel (BMP + Alb, Alk Phos, ALT, AST, Total. Bili, TP) (03/03/2021 5:30 PM CDT) [facility] Method Time Signature Sodium 136 133 - 144 03/05/2021 [facility] mmol/L 2:35 PM CDT Potassium 4.3 3.4 - 5.3 03/05/2021 [facility] mmol/L 2:35 PM CDT Chloride 106 94 - 109 03/05/2021 [facility] mmol/L 2:35 PM CDT Carbon Dioxide 26 20 - 32 03/05/2021 [facility] (CO2) mmol/L 2:35 PM CDT Anion Gap 4 3 - 14 03/05/2021 [facility] mmol/L 2:35 PM CDT Urea Nitrogen 14 7 - 30 03/05/2021 [facility] mg/dL 2:35 PM CDT Creatinine 0.68 0.52 - 03/05/2021 [facility] 1.04 mg/dL 2:35 PM CDT Calcium 8.4 (L) 8.5 - 10.1 03/05/2021 [facility] mg/dL 2:35 PM CDT Glucose 71 70 - 99 03/05/2021 [facility] mg/dL 2:35 PM CDT Alkaline 70 40 - 150 03/05/2021 [facility] Phosphatase U/L 2:35 PM CDT AST 22 0 - 45 U/L 03/05/2021 [facility] 2:35 PM CDT ALT 50 0 - 50 U/L 03/05/2021 [facility] 2:35 PM CDT Protein Total 7.2 6.8 - 8.8 03/05/2021 [facility] g/dL 2:35 PM CDT Albumin 3.7 3.4 - 5.0 03/05/2021 [facility] g/dL 2:35 PM CDT Bilirubin Total 0.2 0.2 - 1.3 03/05/2021 [facility] mg/dL 2:35 PM CDT GFR Estimate >90 >60 03/05/2021 [facility] mL/min/1.7 2:35 PM CDT 3m2 Comment: As of January 18, 2021, eGFR [...] Laterality Blood STRUCTURE OF LEFT Venipuncture / 03/03/2021 5:30 03/03 5:30 UPPER LIMB / Unknown PM CDT PM CDT Unknown Marija Edgar APRN, CNP LAB - BLOOD ORDERABLES Performing Organization Address City/[facility] [place] [address] [phone] Lab [address] [facility], [address] [place] [address], [facility] [address] [facility], Room [address]80 (ABNORMAL) Iron and iron binding capacity (03/03/2021 5:30 PM CDT) P athologist Signature Iron 46 35 - 180 03/05/2021 [facility] ug/dL 2:35 PM CDT Iron Binding 364 240 - 430 03/05/2021 [facility] Capacity ug/dL 2:35 PM CDT Iron Sat Index 13 (L) 15 - 46 % 03/05/2021 [facility] 2:35 PM CDT Specimen Anatomical Collection Method / Collection Time Recei chelsie Time (Source) Location / Volume Laterality Blood STRUCTURE OF LEFT Venipuncture / 03/03/2021 5:30 03/03 5:30 UPPER LIMB / Unknown PM CDT PM CDT Unknown Marija Edgar APRN, CNP LAB - BLOOD ORDERABLES Performing Organization Address City/[facility] [place] [address] Lab [address] [facility], [address] [place] [address], [facility] [address] [facility] [address], Room 3580 (ABNORMAL) CBC with platelets (03/03/2021 5:30 PM CDT) [facility] Method Time Signature WBC Count 5.7 4.0 - 11.0 03/03/2021 [facility] 10e3/uL 6:06 PM CDT RBC Count 4.42 3.80 - 03/03/2021 [facility] 5.20 6:06 PM CDT 10e6/uL Hemoglobin 11.1 (L) 11.7 - 03/03/2021 [facility] 15.7 g/dL 6:06 PM CDT Hematocrit 35.2 35.0 - 03/03/2021 [facility] 47.0 % 6:06 PM CDT MCV 80 78 - 100 03/03/2021 [facility] fL 6:06 PM CDT MCH 25.1 (L) 26.5 - 03/03/2021 [facility] 33.0 pg 6:06 PM CDT MCHC 31.5 31.5 - 03/03/2021 [facility] 36.5 g/dL 6:06 PM CDT RDW 14.1 10.0 - 03/03/2021 [facility] 15.0 % 6:06 PM CDT Platelet Count 255 150 - 450 03/03/2021 [facility] 10e3/uL 6:06 PM CDT Specimen Anatomical Collection Method / Collection Time Recei chelsie Time (Source) Location / Volume Laterality Blood STRUCTURE OF LEFT Venipuncture / 03/03/2021 5:30 03/03 5:30 UPPER LIMB / Unknown PM CDT PM CDT Unknown Marija Edgar APRN, CNP LAB - BLOOD ORDERABLES Performing Organization Address City/State/ZIP Code Phon [place] [address] [phone] [facility] [address] [facility] (no room number, 1st floor of clinic) [facility] [place], [place] [phone] [facility] [phone] Lab [address] [facility] (no room number, 1st floor of clinic) D dimer, quantitative (03/03/2021 5:30 PM CDT) Analysis Performed At Path logist Time Signature D-Dimer <0.27 0.00 - 03/04/2021 [facility] Quantitative 0.50 ug/mL 12:47 PM CDT FEU Specimen Anatomical Collection Method / Collection Time Recei chelsie Time (Source) Location / Volume Laterality Blood STRUCTURE OF LEFT Venipuncture / 03/03/2021 5:30 03/03 5:30 UPPER LIMB / Unknown PM CDT PM CDT Unknown Narrative [facility] - 03/04/2021 12:47 PM CDT This D-dimer assay is intended for use i n conjunction with a clinical pretest probability assessment model to exclude pulmonary embolism (PE) and deep venous thrombosis (DVT) in outpatients suspecte d of PE or DVT. The cut-off value is 0.50 ug/mL FEU. Marija Edgar APRN, CNP LAB - BLOOD ORDERABLES Performing Organization Address City/State/ZIP Code Phon e Number O[facility] LABORATORY [place], [place] [phone] [facility] [address] [place] [address] Lab (no room number, 1st floor of clinic) [facility] [place], [place] [phone] [facility] [address] Lab (no room number, 1st floor of clinic) documented in this encounter Visit Diagnoses Diagnosis Moderate major depression (H) - Primary Major depressive disorder, single episod e, moderate Epigastric pain Abdominal pain, epigastric Psoriasis Other psoriasis Elevated d-dimer Abnormal coagulation profile Other iron deficiency anemia Unprotected sexual intercourse Problems related to high-risk sexual beh avior documented in this encounter Additional Health Concerns Assessment Noted Time PHQ-9 Depression Total Score: 2 03/03/2021 7:02 AM CDT documented as of this encounter Care Teams Supervisor Floor Assembly Relationship Specialty Start Date End Date Marija Edgar APRN PCP - General Nurse Practitioner 04/30/20 SILVERWARE CLEANER [address] [place] [address] Lita Oseguera Personal Advocate & 02/28/20 Liaison (PAL) Chanelle Mccann Assigned OBGYN Provider 05/02/20 05/09/21 [place] [address] [address] [facility] [address] [place] [address] Kyara De La Fuente, VJ Specialty Care Neurology 06/04/20 03/05/21 Coordinator Marija Edgar APRN Assigned PCP 06/08/20 SILVERWARE CLEANER [address] [place], [place] [phone] Mynor Broussard MD Assigned Surgical 06/01/20 11/28/21 [address] D[address] Provider [address] [id number] Melody Dotson Neuroscience 06/04/20 MD Keisha Provider [address] [place] [address] Galo Burrell MD Assigned Heart and 10/05/20 04/02/22 [address] Vascular Provider [address] [place] [id number] documented as of this encounter
--- OUTSIDE RECORDS SUMMARY | 2022-04-28 01:14 | XMS_ITS | Encounter Summary ---
:2000 Author Organization [facility] Address [address] [place] [address]. [place] [address] Care Team Providers Name Role Phone Lita Oseguera Unavailable Unavailable Marija Edgar APRN OUT AND OUT CIGAR MAKER HAND Primary Care Provider [phone] Chanelle Mccann RESISTOR COATER CNM Unavailable + Marija Edgar APRN OUT AND OUT CIGAR MAKER HAND Unavailable Mynor Broussard MD Unavailable Keisha Dotson MD Unavailable Galo Burrell MD Unavailable Reason for Referral CV Testing (Routine) - Closed Specialty Diagnoses / Procedures Referred By Contact Refer red To Contact Diagnoses SVT (supraventricular tachycardia) (H) Galo Burrell MD Procedures Leadless real estate asset manager 8 to 14 Days ZZHC EXT ECG > 48HR TO 21 DAY RCRD W/CONECT INTL RCRD ZZC EXT ECG > 48HR TO 21 DAY REVIEW AND INTERPRETATN [place] EXT ECG > 48HR TO 21 DAY RCRD W/CONECT INTL RCRD [address] [place] EXT ECG > 48HR TO 21 DAY REVIEW AND INTERPRETATN HC EXT ECG > 48HR TO 21 DAY RCRD W/[place] [address] Referral ID Status Reason Start Date Expiration Date Visits Requ ested Visits Authorized [id number] Closed 03/06/2021 03/06/2022 1 1 Reason for Visit CV Testing (Routine) - Closed Specialty Diagnoses / Procedures Referred By Contact Refer red To Contact Diagnoses SVT (supraventricular tachycardia) (H) Galo Burrell MD Procedures Leadless real estate asset manager 8 to 14 Days ZZHC EXT ECG > 48HR TO 21 DAY RCRD W/CONECT INTL RCRD ZZC EXT ECG > 48HR TO 21 DAY REVIEW AND INTERPRETATN [place] EXT ECG > 48HR TO 21 DAY RCRD W/CONECT INTL [facility] [address] [place] EXT ECG > 48HR TO 21 DAY REVIEW AND INTERPRETATN HC EXT ECG > 48HR TO 21 DAY RCRD W/[place] [address] Referral ID Status Reason Start Date Expiration Date Visits Requ ested Visits Authorized [id number] Closed 03/06/2021 03/06/2022 1 1 Encounter Details Date Type Department Care Team Description 03/18/2021 Hospital Encounter [facility] Galo Burrell MD [facility] [address] (supraven tricular Heart Care [address] tachycardia) (H) [address] [place], [place] [address] [address] [place], [place] (Work) [phone] Social History Tobacco Use Types Packs/Day Years [...] to pay for the very basics like Berenice balderas hard 09/22/2021 food, housing, medical care, [...] been in contact with No / Unsure 03/18/2021 2:38 PM CDT someone who was confirmed or [...] EVERY DAY documented as of this encounter Progress Notes Mynor Thomas - 03/18/2021 3:21 PM CDT Placed a 14 day Zio patch cardiac monitor technician. documented in this encounter Plan of Treatment Upcoming Encounters Date Type Specialty Care Team Description 04/28/2022 Office Visit [facility] Anthony Doe, PAUcheC [address] [place] [address] (Wo rk) 05/03/2022 Office Visit Dermatology Neil Kent M D [address] [place], [place] [phone] (Wo rk) 05/05/2022 Office Visit Optometry Yeny David, OD [address] [facility] [place] [address] (Wo rk) 05/11/2022 Virtual Visit Pharm D Diana Desir , [facility] [address] [place], [place] [phone] (Wo rk) 05/14/2022 Office Visit Cardiology Livan Sharif MD [address] , [facility] [address] [place] [address] (Wo rk) 05/31/2022 Office Visit [facility] Valery Veronica PAUcheC [address] [place] [address] (Wo rk) documented as of this encounter Procedures Procedure Name Priority Date/Time Associated Comments Diagnosis LEADLESS WOOD DIE MAKER Routine 03/18/2021 3:21 PM SVT R esults for this APPLICATION AND CDT (supraventricular procedu re are in INTERP 8 TO 14 DAYS tachycardia) (H) the results section. documented in this encounter Results LEADLESS WOOD DIE MAKER APPLICATION AND INTERP 8 TO 14 DAYS (03/18/2021 3:21 PM CDT) Anatomical Region Laterality Modality Other [...] documented as of this encounter Care Teams Housesmith Relationship Specialty Start Date End Date Marija Edgar APRN PCP - General Nurse Practitioner 04/30/20 OUT AND OUT CIGAR MAKER HAND [address] [place] [address] Lita Oseguera Personal Advocate & 02/28/20 Liaison (PAL) Chanelle Mccann Assigned OBGYN Provider 05/02/20 05/09/21 [place] [address] [address] [facility] [address] [place], [place] [address] Marija Edgar APRN Assigned PCP 06/08/20 OUT AND OUT CIGAR MAKER HAND [address] [place], [place] [phone] Mynor Broussard MD Assigned Surgical 06/01/20 11/28/21 [address] D[address] Provider [address] [place], [place] [address] Mauri, Melody Neuroscience 06/04/20 MD Keisha Provider [address] [place], [place] [address] Galo Burrell MD Assigned Heart and 10/05/20 04/02/[address] Vascular Provider [address] [place] [address] documented as of this encounter
--- OUTSIDE RECORDS SUMMARY | 2022-04-28 01:14 | XMS_ITS | Encounter Summary ---
:2000 Author Organization [place] Address [address] [place] [address] Care Team Providers Name Role Phone Lita Oseguera Unavailable Unavailable Marija Edgar APRN CLINICAL LABORATORY AIDES TEACHER Primary Care Provider [phone] Chanelle Mccann APRN CNM Unavailable + Kyara De La Fuente RN Unavailable Marija Edgar APRN CLINICAL LABORATORY AIDES TEACHER Unavailable Mynor Broussard MD Unavailable Keisha Dotson MD Unavailable Galo Burrell MD Unavailable Reason for Visit Reason Onset Date Comments Clinic Care Coordination - Follow-up 02/24/2021 Encounter Details Date Type Department Care Team Description 02/24/2021 Telephone [facility] Joanne Portillo RN Clinic Care Coordination Clinic [place] - Follow-up [address] [facility] [address] [place] [id number] Social History [...] week 09/22/2021 How often do you attend moravian or mormon services? Never 09/22/2021 Do you belong to any clubs or organizations such as No 09/22/2021 moravian groups, unions, fraternal or athletic groups, or [...] been in contact with No / Unsure 02/17/2021 12:38 PM CDT someone who was confirmed or suspected to have Coronavirus / COVID-19? documented as of this encounter Miscellaneous Notes Telephone Encounter - Joanne Portillo RN - 02/24/2021 3:25 PM CDT 02/24/21 Pt called in wanting to make appt w Dr Burrell. She states since giving to her daughter on January 13, her palpitations have diminished but she still has episodes 4/7 days of the week . Sometimes they wake her up at night. She was taking Metoprolol 25 mg every day but then began experiencing lightheadedness and was checking BP at home with readings 88-90/ 60's. She dropped the dose to 1/2 tab daily as the lightheadedness made her nervous carrying around her baby. Pt scheduled for 03/[address] Burrell to talk about prison plan for managing SVT. Pt voiced understanding and agreement with plan. KHerroRN 330 pm documented in this encounter Plan of Treatment Upcoming Encounters Date Type Specialty Care Team Description 04/28/2022 Office Visit Family Practice Anthony Doe, PA-C [address] [place], [place] [phone] (Wo rk) 05/03/2022 Office Visit Dermatology Neil Kent M D [address] [place] [address] (Wo rk) 05/05/2022 Office Visit Optometry Yeny David, OD [address] [facility] [place] [address] (Wo rk) 05/11/2022 Virtual Visit Pharm D Diana Desir , [facility] [address] [place], [place] [address] (Wo rk) 05/14/2022 Office Visit Cardiology Livan Sharif MD [address] [facility] [address] [place], [place] [address] (Wo rk) 05/31/2022 Office Visit Family Practice Valery Veronica PA-C [address] [place], [place] [address] (Wo rk) documented as of this encounter Visit Diagnoses Not on filedocumented in this encounter Additional Health Concerns Assessment Noted Time PHQ-9 Depression Total Score: 6 09/29/2020 3:25 PM CDT documented as of this encounter Care Teams Programming Instructor Relationship Specialty Start Date End Date Marija Edgar APRN PCP - General Nurse Practitioner 04/30/20 CLINICAL LABORATORY AIDES TEACHER [address] [place] [address] Lita Oseguera Personal Advocate & 02/28/20 Liaison (PAL) Chanelle Mccann Assigned OBGYN Provider 05/02/20 05/09/21 ARLENE Mooney CNM [address] [place], [address] [place], [place] [address] Kyara De La Fuente, VJ Specialty Care Neurology 06/04/20 03/05/21 Coordinator Marija Edgar APRN Assigned PCP 06/08/20 CLINICAL LABORATORY AIDES TEACHER [address] [place] [address] Mynor Broussard MD Assigned Surgical 06/01/20 11/28/21 [address] [place] Provider [address] [place] [address] Mauri, Assigned Neuroscience 06/04/20 MD Keisha Provider [address] [place], [place] [address] Galo Burrell MD Assigned Heart and 10/05/20 04/02/22 [address] Vascular Provider [address] [place] [address] documented as of this encounter
--- OUTSIDE RECORDS SUMMARY | 2022-04-28 01:14 | XMS_ITS | Encounter Summary ---
:2000 Author Organization [place] Address [address] [place] [address]. [place] [address] Care Team Providers Name Role Phone Lita Oseguera Unavailable Unavailable Marija Edgar APRN CERTIFIED PEER SPECIALIST Primary Care Provider [phone] Chanelle Mccann APRN CNM Unavailable + Marija Edgar APRN CERTIFIED PEER SPECIALIST Unavailable Mynor Broussard MD Unavailable Kiesha Dotson MD Unavailable Galo Burrell MD Unavailable Reason for Visit Diagnostic Imaging XR (Routine) - Closed Specialty Diagnoses / Procedures Referred By Contact Refer red To Contact Diagnoses Slow transit constipation Nicole Garcia PA-C Procedures XR Abdomen 2 Views [facility] [address] [place], [place] [address] Referral ID Status Reason Start Date Expiration Date Visits Requ ested Visits Authorized [id number] Closed 03/23/2021 03/23/2022 1 1 Encounter Details Date Type Department Care Team Description 03/23/2021 Ancillary Procedure [facility] Juancarlos Garcia PA-C [facility] [address] [place] [address] [address] [address] [place], [place] [phone] (Wo rk) Social History Tobacco Use [...] week 09/22/2021 How often do you attend gnosticist or anabaptist services? Never 09/22/2021 Do you belong to any clubs or organizations such as No 09/22/2021 gnosticist groups, unions, fraternal or athletic groups, or [...] Office Visit Family Practice Anthony Doe, PAUcheC [address] [place], [place] [phone] (Wo rk) 05/03/2022 Office Visit Dermatology Neil Kent M D [address] [place] [address] (Wo rk) 05/05/2022 Office Visit Optometry Yeny David, OD [address] [facility] [address] [place], [place] [phone] (Wo rk) 05/11/2022 Virtual Visit Pharm D Diana Desir , [facility] [address] [place], [place] [address] (Wo rk) 05/14/2022 Office Visit Cardiology Livan Sharif MD [address] [facility] [address] [place], [place] [address] (Wo rk) 05/31/2022 Office Visit Family Practice Valery Veronica PA-C [address] [place], [place] [address] (Wo rk) documented as of this encounter Procedures Procedure Name Priority Date/Time Associated Diagnosis Comme nts XR ABDOMEN 2 VIEWS STAT 03/23/2021 11:47 AM Melena Re sults for this CDT procedure are i n the results section. documented in this encounter Results XR Abdomen 2 Views (03/23/2021 11:47 AM CDT) Anatomical Region Laterality Modality Abdomen/Pelvis Computed Radiography Specimen (Source) Anatomical Location Collection Method / Collectio n Time Received Time / Laterality Volume Impressions 03/23/2021 2:01 PM CDT IMPRESSION: Nonobstructed bowel gas pattern. CHIDI SCHWARTZ MD Narrative 03/23/2021 2:01 PM CDT ABDOMEN TWO-THREE VIEW ??03/23/2021 11:47 AM HISTORY: Melena. COMPARISON: None. FINDINGS: Moderate ??amount of stool. No free air. There are no air filled distended loops of small bowel. T he colon is not distended. The lung bases are unremarkable. Procedure Note Chidi Schwartz MD - 03/23/2021Fo rmatting of this note might be different from the original. ABDOMEN TWO-THREE VIEW 03/23/2021 11:47 A M HISTORY: Melena. COMPARISON: None. FINDINGS: Moderate amount of stool. No f ree air. There are no air filled distended loops of small bowel. T he colon is not distended. The lung bases are unremarkable. IMPRESSION: Nonobstructed bowel gas barb mohan. CHIDI SCHWARTZ MD Nicole Garcia PA-C IMG DIAGNOSTIC IMAGING ORDER GARY documented in this encounter Visit Diagnoses Diagnosis Melena Blood in stool documented in this encounter Additional Health Concerns Assessment Noted Time PHQ-9 Depression Total Score: 2 03/03/2021 7:02 AM CDT documented as of this encounter Care Teams Manager Of Case Management Relationship Specialty Start Date End Date Marija Edgar APRN PCP - General Nurse Practitioner 04/30/20 CERTIFIED PEER SPECIALIST [address] [place] [address] Lita Oseguera Personal Advocate & 02/28/20 Liaison (PAL) Chanelle Mccann Assigned OBGYN Provider 05/02/20 05/09/21 [place] [address] [address] [address] [place], [place] [address] Marija Edgar APRN Assigned PCP 06/08/20 CERTIFIED PEER SPECIALIST [address] [place] [address] Mynor Broussard MD Assigned Surgical 06/01/20 11/28/21 [address] [facility] Provider [address] [place], [place] [address] Mauri, Assigned Neuroscience 06/04/20 MD Keisha Provider [address] [place] [address] Galo Burrell MD Assigned Heart and 10/05/20 04/02/22 [address] Vascular Provider [address] [place] [address] documented as of this encounter
--- OUTSIDE RECORDS SUMMARY | 2022-04-28 01:14 | XMS_ITS | Encounter Summary ---
:2000 Author Organization [place] Address [address] [place] [address] Care Team Providers Name Role Phone Lita Oseguera Unavailable Unavailable Marija Edgar APRN MAIL CLERK BILLS Primary Care Provider [phone] Chanelle Mccann APRN CNM Unavailable + Kyara De La Fuente RN Unavailable Marija Edgar APRN MAIL CLERK BILLS Unavailable Mynor Broussard MD Unavailable Keisha Dotson MD Unavailable Galo Burrell MD Unavailable Encounter Details Date Type Department Care Team Description 02/17/2021 Travel Social History Tobacco Use Types Packs/Day [...] How often do you attend jain or yazidi services? Never 09/22/2021 Do you [...] Office Visit Family Practice Anthony Doe, PABaldo [address] [place] [address] (Wo rk) 05/03/2022 Office Visit Dermatology Neil Kent M D [address] [place] [address] (Wo rk) 05/05/2022 Office Visit Optometry Yeny David, OD [address] [facility] [address] [place] [phone] (Wo rk) 05/11/2022 Virtual Visit Pharm D Diana Desir , [facility] [address] [place] [address] (Wo rk) 05/14/2022 Office Visit Cardiology [facility]ivan [facility]if MD [address] [facility] [address] [place] [address] (Wo rk) 05/31/2022 Office Visit Family Practice Valery Veronica , PA-C [address] [place] [id number] (Wo rk) documented as of this encounter Visit Diagnoses Not on filedocumented in this encounter Additional Health Concerns Assessment Noted Time PHQ-9 Depression Total Score: 6 09/29/2020 3:25 PM CDT documented as of this encounter Care Teams Interviewing Clerk Relationship Specialty Start Date End Date Marija Edgar APRN PCP - General Nurse Practitioner 04/30/20 MAIL [employer]ERK [employer]S [address] [place], [place] [phone] Lita Oseguera Personal Advocate & 02/28/20 Liaison (PAL) Chanelle Mccann Assigned OBGYN Provider 05/02/20 05/09/21 [place] [address] [address] [facility] [address] [place] [address] Kyara De La Fuente RN Specialty Care Neurology 06/04/20 03/05/21 Coordinator Marija Edgar APRN Assigned PCP 06/08/20 [employer]IL [employer]ERK [employer]ILLS [address] [place], [place] [phone] Mynor Broussard MD Assigned Surgical 06/01/20 11/28/21 [address] [facility] Provider [address] [place] [address] Mauri, Assigned Neuroscience 06/04/20 MD Keisha Provider [address] [place], [place] [address] Galo Burrell MD Assigned Heart and 10/05/20 04/02/22 [address] Vascular Provider [address] [place], [place] [address] documented as of this encounter
--- OUTSIDE RECORDS SUMMARY | 2022-04-28 01:14 | XMS_ITS | Encounter Summary ---
:2000 Author Organization [facility] Address [address] [place] [address]. [place] [address] Care Team Providers Name Role Phone Lita Oseguera Unavailable Unavailable Marija Edgar APRN SLURRY CONTROL OPERATOR HELPER Primary Care Provider [phone] Chanelle Mccann ADJUNCT TRAINER CNM Unavailable + Marija Edgar APRN SLURRY CONTROL OPERATOR HELPER Unavailable Mynor Broussard MD Unavailable Keisha Dotson MD Unavailable Zachary Burrell MD Unavailable Reason for Referral CV Testing (Routine) - Closed Specialty Diagnoses / Procedures Referred By Contact Refer red To Contact Diagnoses SVT (supraventricular tachycardia) (H) Zachary Burrell MD Procedures Leadless urology teacher 8 to 14 Days ZZHC EXT ECG > 48HR TO 21 DAY RCRD W/CONECT INTL RCRD ZZC EXT ECG > 48HR TO 21 DAY REVIEW AND INTERPRETATN WA EXT ECG > 48HR TO 21 DAY RCRD W/CONECT INTL RCRD [address] [place] EXT ECG > 48HR TO 21 DAY REVIEW AND INTERPRETATN HC EXT ECG > 48HR TO 21 DAY RCRD W/[place] [address] Referral ID Status Reason Start Date Expiration Date Visits Requ ested Visits Authorized [id number] Closed 03/06/2021 03/06/2022 1 1 V Testing (Routine) - Closed Specialty Diagnoses / Procedures Referred By Contact Refer red To Contact Diagnoses SVT (supraventricular tachycardia) (H) Zachary Burrell MD Procedures Echocardiogram Complete ZZHC TTE W/DOPPLER, COMPLETE ZZHC ECHO COMPLETE W DOPPLER W CONTRAST ZZHC ECHO COMPLETE W DOPPLER W/O CONTRAST ZZHC IV PUSH SINGLE, INITIAL SUBSTANCE ZZHC US GUIDE FOR PERICARDIOCENTESIS [address] ZZHC ECHO MYOCARD BX ZZC INJECTION, PERFLUTREN LIPID MICROSPHERES, PER ML ZZHC STATISTIC IV PUSH SINGLE INITIAL SUBSTANCE WA ECHO MYOCARD BX WA INJECTION, PERFLUTREN LIPID MICROSPHERES, PER ML WA TTE W/DOPPLER, COMPLETE [place] [address] [place] IV PUSH SINGLE, INITIAL S UBSTANCE WA TTE W/DOPPLER, COMPLETE WA TTE W/DOPPLER, COMPLETE HC US GUIDE FOR PERICARDIOCENTESIS HC ECHO MYOCARD BX HC IV PUSH SINGLE, INITIAL SUBSTANCE HC STATISTIC IV PUSH SINGLE INITIAL SUBSTANCE HC ECHO COMPLETE W DOPPLER W CONTRAST HC ECHO COMPLETE W DOPPLER W/O CONTRAST Referral ID Status Reason Start Date Expiration Date Visits Requ ested Visits Authorized [id number] Closed 03/06/2021 03/06/2022 1 1 Reason for Visit Reason Comments Palpitations Encounter Details Date Type Department Care Team Description 03/06/2021 Office Visit [facility] Zachary Burrell MD Palpitations (Primary Dx); [facility] [place] [address] SVT (supraventricular tachyc ardia) (H) [address] [facility] [address] [place] [address] [place] [id number] Social History Tobacco Use Types Packs/Day Years [...] How often do you attend adventism or rastafari services? Never 09/22/2021 Do you [...] Sign Reading Time Taken Comments Blood Pressure 107/69 03/06/2021 4:10 PM CDT Pulse 74 03/06/2021 4:10 PM CDT Temperature - - Respiratory Rate - - Oxygen Saturation - - Inhaled Oxygen Concentration - - Weight 91.8 kg (202 lb 6.4 oz) 03/06/2021 4:10 PM CDT Height 167.6 cm (5' 6) 03/06/2021 4:10 PM CDT Body Mass Index 32.67 03/06/2021 4:10 PM CDT documented in this encounter Progress Notes Zachary Burrell MD - 03/06/2021 4:36 PM CDT Service Date: 03/06/2021 HISTORY OF PRESENT ILLNESS: I saw Ms. Clark for followup of SVT. She is a 20-year-old white female with documented SVT with heart rate up to 187 beats per minute. She was treated with metoprolol 25 mgp.o. daily. Subsequently, she had another longer episode of SVT that lasted for 30 minutes with heart rate up to 210 beats per minute. That one was not recorded on EKG. The patient was during that time. For that reason, she was treated with metoprolol. She has had an uneventful delivery. Recently, she has been having problems with dizziness and blood pressure down to the 80s. She was instructed to reduce the dose of metoprolol from 25 mg to 12.5 mg p.o. daily. That appears to have helped. On the other hand, she has been having recurrent palpitation.The episodes were relatively short lasting. She had elevated D-dimer during her . Recently, she had a re-elevation D-dimer and she is requesting a repeat echocardiography. PHYSICAL EXAMINATION: Blood pressure was 107/69, heart rate 74 beats per minute, body weight 202 pounds. The cardiovascular examination showed no remarkable abnormalities. EKG showed normal sinus rhythm. ASSESSMENT AND RECOMMENDATIONS: Ms. Clark had SVT when she was . She is intolerant of metoprolol 25 mg p.o. daily. I have asked her to stop metoprolol as of today. She is reluctant to have EP study and ablation at this point. I understand her concerns. I suggested a repeat Zio patch monitor for 2 weeks. Per patient request, I have ordered a repeat echocardiography. The patient can continue to monitor her symptom status without further intervention for the time being. If she is bothered by long-lastingrecurrent heart racing, we will rediscuss EP study/ablation. cc: Marija Edgar NP [address] [address] Zachary Burrell MD MT: MARY KAY Name: KIM CLARK MRN: [id number] Account: [id number] : 2000 Service Date: 03/06/2021 Document: [id number] Zachary Burrell MD - 03/06/2021 4:15 PM CDT HPI and Plan: See dictation Orders Placed This Encounter Procedures ??? EKG 12-lead complete w/read - Clinics (performed today) ??? Leadless urology teacher 8 to 14 Days ??? Echocardiogram Complete No orders of the defined types were placed in this encounter. Medications Discontinued During This Encounter Medication Reason ??? metoprolol succinate ER (TOPROL-XL) 25 MG 24 hr tablet Encounter Diagnoses Name Primary? Palpitations Yes ??? SVT (supraventricular tachycardia) (H) CURRENT MEDICATIONS: Current [...] BY MOUTH EVERY DAY 135 tablet 0 ALLERGIES No Known Allergies PAST MEDICAL HISTORY: Past Medical History: Diagnosis Date ??? Anxiety ??? Chronic kidney disease stones, history of infections ??? Depressive disorder ??? Gastroesophageal reflux disease ??? Psoriasis ??? Seizure (H) 05/02/2019 no seizure since 2017 ??? SVT (supraventricular tachycardia) (H) PAST SURGICAL HISTORY: Past Surgical History: Procedure Laterality Date ??? GENITOURINARY SURGERY kidney FAMILY HISTORY: Family History Problem Relation Age of Onset ??? Heart Disease Maternal Grandfather ??? Brain Tumor Sister SOCIAL HISTORY: Social History Socioeconomic History ??? Marital status: Single Spouse name: None ??? Number of children: None ??? Years of education: None ??? Highest education level: 12th grade Occupational History ??? None Tobacco Use ??? Smoking status: Former Smoker Packs/day: 1.00 Types: Other Quit date: 12/07/2019 Years since quittin.2 ??? Smokeless tobacco: Never Used Vaping Use ??? Vaping Use: Never used Substance and Sexual Activity ??? Alcohol use: Not Currently ??? Drug use: No ??? Sexual activity: Yes Partners: Male Other Topics Concern ??? Parent/sibling w/ CABG, VT or angioplasty before 65F 55M? Not Asked Social History Narrative ??? None Social Determinants of Health Financial Resource Strain: High Risk ??? Difficulty of Paying Living Expenses: Very hard Food Insecurity: Food Insecurity Present ??? Worried About Running Out of Food in the Last Year: Often true ??? Ran Out of Food in the Last Year: Often true Transportation Needs: No Transportation Needs ??? Lack of Transportation (Medical): No ??? Lack of Transportation (Non-Medical): No Physical Activity: Insufficiently Active ??? Days of Exercise per Week: 1 day ??? Minutes of Exercise per Session: 30 min Stress: Stress Concern Present ??? Feeling of Stress : To some extent Social Connections: Moderately Isolated ??? Frequency of Communication with Friends and Family: Three times a week ??? Frequency of Social Gatherings with Friends and Family: Once a week ??? Attends Buddhist Services: More than 4 times per year ??? Active Member of Clubs or Organizations: No ??? Attends Club or Organization Meetings: Never ??? Marital Status: Never Intimate Partner Violence: Not At Risk ??? Fear of Current or Ex-Partner: No ??? Emotionally Abused: No ??? Physically Abused: No ??? Sexually Abused: No Review of Systems: Skin: Negative Eyes: Negative ENT: Negative Respiratory: Positive for dyspnea on exertion;shortness of breath Cardiovascular: palpitations;Positive for SVT Gastroenterology: Negative Genitourinary: Negative Musculoskeletal: Negative Neurologic: Positive for epilepsy Psychiatric: Positive for depression Heme/Lymph/Imm: Positive for anemia hx of anemia Endocrine: Negative Physical Exam: Vitals: BP 107/69 Pulse 74 Ht 1.676 m (5' 6) Wt 91.8 kg (202 lb 6.4 oz) LMP 04/29/2020 BMI 32.67 kg/m?? Constitutional: cooperative, alert and oriented, well developed, well nourished, in no acute distress Skin: warm and dry to the touch, no apparent skin lesions or masses noted Head: normocephalic, no masses or lesions Eyes: pupils equal and round, conjunctivae and lids unremarkable, sclera white, no xanthalasma, EOMSintact, no nystagmus Lymph:No Cervical lymphadenopathy present ENT: no pallor or cyanosis, dentition good Neck: carotid pulses are full and equal bilaterally, JVP normal, no carotid bruit Respiratory: normal breath sounds, clear to auscultation, normal A-P diameter, normal symmetry, normal respiratory excursion, no use of accessory muscles Cardiac: regular rhythm, normal S1/S2, no S3 or S4, apical impulse not displaced, no murmurs, gallops or rubs GI: abdomen soft, non-tender, BS normoactive, no mass, no HSM, no bruits Extremities and Muscular Skeletal: no deformities, clubbing, cyanosis, erythema observed Neurological: no gross motor deficits Psych: Alert and Oriented x 3 CC No referring provider defined for this encounter. documented in this encounter Plan of Treatment Upcoming Encounters Date Type Specialty Care Team Description 04/28/2022 Office Visit Family Practice Anthony Doe PA-C [address] [place], [place] [phone] (Wo rk) 05/03/2022 Office Visit Dermatology Neil Kent M D [address] [place] [phone] (Wo rk) 05/05/2022 Office Visit Optometry Yeny David, OD [address] [facility] [place] [phone] (Wo aldo) 05/11/2022 Virtual Visit Pharm D Diana Desir , [facility] [address] [place], [place] [phone] (Wo rk) 05/14/2022 Office Visit Cardiology Livan Sharif MD [address] [place], [place] [phone] (Wo rk) 05/31/[address] [facility] Valery Veronica , PAUcheC [address] [place] [address] (Wo rk) documented as of this encounter Procedures Procedure Name Priority Date/Time Associated Diagnosis Comme nts EKG 12-LEAD Routine 03/06/2021 4:37 PM Palpitations Results f or this COMPLETE W/READ - CDT procedure are in CLINICS the results section. documented in this encounter Results LEADLESS RESEARCH AND DEVELOPMENT SCIENTIST APPLICATION AND INTERP 8 TO 14 DAYS (03/18/2021 3:21 PM CDT) Anatomical Region Laterality Modality Other Specimen (Source) Anatomical Location Collection Method / Collectio n Time Received Time / Laterality Volume Narrative This result has an attachment that is no t available. Zachary Burrell MD CV CARDIAC SERVICES ORDERABL ES ECHO COMPLETE (03/18/2021 3:16 PM CDT) P athologist Signature LVEF 60-65% CARDIOLOGY RESULTS Anatomical Region Laterality Modality Echocardiography Specimen (Source) Anatomical Collection Method Collection Time Re ceived Time Location / / Volume Laterality 03/18/2021 2:50 PM CDT Narrative 03/18/2021 5:08 PM CDT [id number]^ROGER^[facility] Echocardiography Laboratory [address] [place] [address] Name: KIM CLARK : 2000 Study Date: 03/18/2021 02:50 PM Age: 20 yrs Gender: Female Patient Location: [facility] Reason For Study: SVT Ordering Physician: ZACHARY BURRELL Referring Physician: Marija Edgar Performed By: Karlie Lomeli RDCS BSA: 2.0 m2 Height: 66 in Weight: 202 lb HR: 60 BP: 107/69 mmHg Procedure Complete Echo Adult. Interpretation Summary Left ventricular systolic function is no rmal. The visual ejection fraction is 60-65%. The right ventricle is normal in structu re, function and size. Left Ventricle The left ventricle is normal in structur e, function and size. There is normal left ventricular wall thickness. Left ve ntricular systolic function is normal. The visual ejection fraction is 60-65%. Left ventricular diastolic function is normal. No regional wall motion abnormal ities noted. Right Ventricle The right ventricle is normal in structu re, function and size. Atria Normal left atrial size. Right atrial si ze is normal. There is no color Doppler evidence of an atrial shunt. Mitral Valve The mitral valve is normal in structure and function. There is no mitral regurgitation noted. Tricuspid Valve The tricuspid valve is normal in structu re and function. There is trace tricuspid regurgitation. The right ventr icular systolic pressure is approximated at 16.9 mmHg plus the right atrial pressure. Aortic Valve The aortic valve is normal in structure and function. No aortic regurgitation is present. Pulmonic Valve The pulmonic valve is normal in structur e and function. There is trace pulmonic valvular regurgitation. Vessels Normal size aorta. The inferior vena cav a is normal. Pericardium There is no pericardial effusion. Rhythm Sinus rhythm was noted. MMode/2D Measurements & Calculations IVSd: 0.89 cm LVIDd: 4.9 cm LVIDs: 3.1 cm LVPWd: 0.68 cm FS: 36.1 % LV mass(C)d: 128.5 grams LV mass(C)dI: 64.0 grams/m2 LA dimension: 3.8 cm asc Aorta Diam: 2.6 cm LA Volume (BP): 45.3 ml LA Volume Index (BP): 22.5 ml/m2 RWT: 0.28 Doppler Measurements & Calculations MV E max femi: 66.5 cm/sec MV A max femi: 37.7 cm/sec MV E/A: 1.8 MV max P.7 mmHg MV mean P.2 mmHg MV V2 VTI: 26.3 cm MV dec time: 0.25 sec PA acc time: 0.17 sec TR max femi: 205.6 cm/sec TR max P.9 mmHg E/E' av.1 Lateral E/e': 4.3 Medial E/e': 5.9 Report approved by: Jonathan Petty 03/18/2021 05:08 PM Procedure Note Giovani Miner MD - 03/18/2021Fo rmatting of this note might be different from the original. [id number]^ROGER^[facility] [address] [facility] [place] [address] Name: KIM CLARK : 2000 Study Date: 03/18/2021 02:50 PM Age: 20 yrs Gender: Female Patient Location: [facility] Reason For Study: SVT Ordering Physician: ZACHARY BURRELL Referring Physician: Marija Edgar Performed By: Karlie Lomeli RDCS BSA: 2.0 m2 Height: 66 in Weight: 202 lb HR: 60 BP: 107/69 mmHg Procedure Complete Echo Adult. Interpretation Summary Left ventricular systolic function is no rmal. The visual ejection fraction is 60-65%. The right ventricle is normal in structu re, function and size. Left Ventricle The left ventricle is normal in structur e, function and size. There is normal left ventricular wall thickness. Left ve ntricular systolic function is normal. The visual ejection fraction is 60-65%. Left ventricular diastolic function is normal. No regional wall motion abnormal ities noted. Right Ventricle The right ventricle is normal in structu re, function and size. Atria Normal left atrial size. Right atrial si ze is normal. There is no color Doppler evidence of an atrial shunt. Mitral Valve The mitral valve is normal in structure and function. There is no mitral regurgitation noted. Tricuspid Valve The tricuspid valve is normal in structu re and function. There is trace tricuspid regurgitation. The right ventr icular systolic pressure is approximated at 16.9 mmHg plus the right atrial pressure. Aortic Valve The aortic valve is normal in structure and function. No aortic regurgitation is present. Pulmonic Valve The pulmonic valve is normal in structur e and function. There is trace pulmonic valvular regurgitation. Vessels Normal size aorta. The inferior vena cav a is normal. Pericardium There is no pericardial effusion. Rhythm Sinus rhythm was noted. MMode/2D Measurements & Calculations IVSd: 0.89 cm LVIDd: 4.9 cm LVIDs: 3.1 cm LVPWd: 0.68 cm FS: 36.1 % LV mass(C)d: 128.5 grams LV mass(C)dI: 64.0 grams/m2 LA dimension: 3.8 cm asc Aorta Diam: 2.6 cm LA Volume (BP): 45.3 ml LA Volume Index (BP): 22.5 ml/m2 RWT: 0.28 Doppler Measurements & Calculations MV E max femi: 66.5 cm/sec MV A max femi: 37.7 cm/sec MV E/A: 1.8 MV max P.7 mmHg MV mean P.2 mmHg MV V2 VTI: 26.3 cm MV dec time: 0.25 sec PA acc time: 0.17 sec TR max femi: 205.6 cm/sec TR max P.9 mmHg E/E' av.1 Lateral E/e': 4.3 Medial E/e': 5.9 Report approved by: Jonathan Petty 03/18/2021 05:08 PM Zachary Burrell MD CV ECHO ORDERABLES EKG 12-lead complete w/read - Clinics (performed today) (03/06/2021 4:37 PM CDT) Narrative This result has an attachment that is no t available. Zachary Burrell MD ECG ORDERABLES documented in this encounter Visit Diagnoses Diagnosis Palpitations - Primary SVT (supraventricular tachycardia) (H) Other specified cardiac dysrhythmias SVT (supraventricular tachycardia) (H) Other specified cardiac dysrhythmias documented in this encounter Additional Health Concerns Assessment Noted Time PHQ-9 Depression Total Score: 2 03/03/2021 7:02 AM CDT documented as of this encounter Care Teams Hand Etcher Helper Relationship Specialty Start Date End Date Marija Edgar APRN PCP - General Nurse Practitioner 04/30/20 SLURRY CONTROL OPERATOR HELPER [address] [place], [place] [phone] Lita Oseguera Personal Advocate & 02/28/20 Liaison (PAL) Chanelle Mccann Assigned OBGYN Provider 05/02/20 05/09/21 ARLENE Mooney [facility] [address] [facility] [address] [place], [place] [address] Marija Edgar APRN Assigned PCP 06/08/20 SLURRY CONTROL OPERATOR HELPER [address] [place] [address] Mynor Broussard MD Assigned Surgical 06/01/20 11/28/21 [address] [facility] Provider [address] [place], [place] [address] Mauri, Melody Neuroscience 06/04/20 MD Keisha Provider [address] [place], [place] [address] Zachary Burrell MD Assigned Heart and 10/05/20 04/02/22 [address] Vascular Provider [address] [place] [address] documented as of this encounter
--- OUTSIDE RECORDS SUMMARY | 2022-04-28 01:14 | XMS_ITS | Encounter Summary ---
:2000 Author Organization [facility] Address [address] [place] [address] Care Team Providers Name Role Phone Lita Oseguera Unavailable Unavailable Marija Edgar APRN LACQUER POLISHER Primary Care Provider [phone] Chanelle Mccann APRN CNM Unavailable + Kyara De La Fuente RN Unavailable Marija Edgar APRN LACQUER POLISHER Unavailable Mynor Broussard MD Unavailable Keisha Dotson MD Unavailable Galo Burrell MD Unavailable Encounter Details Date Type Department Care Team Description 03/03/2021 Travel Social History Tobacco Use Types Packs/Day [...] How often do you attend tenriism or muslim services? Never 09/22/2021 Do you [...] Office Visit Family Practice Anthony Doe, PABaldo [address] [place] [address] (Wo rk) 05/03/2022 Office Visit Dermatology Neil Kent M D [address] [place] [address] (Wo rk) 05/05/2022 Office Visit Optometry Yeny David, OD [address] [facility] [address] [place] [phone] (Wo rk) 05/11/2022 Virtual Visit Pharm D Diana Desir , [facility] [address] [place] [address] (Wo rk) 05/14/2022 Office Visit Cardiology [facility]ivan [facility]if [facility] [address] [facility] [address] [place] [address] (Wo rk) 05/31/2022 Office Visit Family Practice Valery Veronica , PA-C [address] [place] [id number] (Wo rk) documented as of this encounter Visit Diagnoses Not on filedocumented in this encounter Additional Health Concerns Assessment Noted Time PHQ-9 Depression Total Score: 2 03/03/2021 7:02 AM CDT documented as of this encounter Care Teams Scraper Loader Operator Relationship Specialty Start Date End Date Marija Edgar APRN PCP - General Nurse Practitioner 04/30/20 LACQUER POLISHER [address] [place], [place] [phone] Lita Oseguera Personal Advocate & 02/28/20 Liaison (PAL) Chanelle Mccann Assigned OBGYN Provider 05/02/20 05/09/21 [place] [address] [address] [facility] [address] [place] [address] Kyara De La Fuente RN Specialty Care Neurology 06/04/20 03/05/21 Coordinator Marija Edgar APRN Assigned PCP 06/08/20 LACQUER POLISHER [address] [place], [place] [phone] Mynor Broussard MD Assigned Surgical 06/01/20 11/28/21 [address] [facility] Provider [address] [place] [address] Mauri, Assigned Neuroscience 06/04/20 MD Keisha Provider [address] [place], [place] [phone] Galo Burrell MD Assigned Heart and 10/05/20 04/02/22 [address] Vascular Provider [address] [place], [place] [address] documented as of this encounter
--- OUTSIDE RECORDS SUMMARY | 2022-04-28 01:14 | XMS_ITS | Encounter Summary ---
:2000 Author Organization [facility] Address [address] [place] [address] Care Team Providers Name Role Phone Lita Oseguera Unavailable Unavailable Marija Edgar APRN FIELD AUDITOR Primary Care Provider [phone] Chanelle Mccann APRN CNM Unavailable + Kyara De La Fuente RN Unavailable Marija Edgar APRN FIELD AUDITOR Unavailable Mynor Broussard MD Unavailable Keisha Dotson MD Unavailable Galo Burrell MD Unavailable Reason for Visit Reason Onset Date Comments No Show 03/04/2021 Encounter Details Date Type Department Care Team Description 02/19/2021 Virtual Visit [facility] Mauri, NO SHOW (Primary Dx) [address] [place] [phone] Social History Tobacco Use Types Packs/Day Years [...] How often do you attend christianity or temple services? Never 09/22/2021 Do you belong to any clubs or organizations such as No 09/22/2021 christianity groups, unions, fraPrecision Through Imaging or athletic groups, or school groups? How [...] documented as of this encounter Progress Notes Magdalena Anne CMA - 02/19/2021 9:30 AM CDT Called patient, no answer. Left voicemail message to call us back for rooming process. Magdalena Anne CMA Magdalena Anne CMA - 02/19/2021 9:30 AM CDT Called patient again. Left voicemail message and asked her to call back for rooming process. Magdalena Anne CMA Suim Alarcon LPN - 02/19/2021 9:30 AM CDT This patient was a no show for this scheduled appointment. documented in this encounter Plan of Treatment Upcoming Encounters Date Type Specialty Care Team Description 04/28/2022 Office Visit Family Practice Anthony Doe, PAUcheC [address] [place], [place] [phone] (Wo rk) 05/03/2022 Office Visit Dermatology Neil Kent M D [address] [place], [place] [phone] (Wo rk) 05/05/2022 Office Visit Optometry Yeny David, OD [address] [facility] [address] [place] [phone] (Wo rk) 05/11/2022 Virtual Visit Pharm D Diana Desir , [facility] [address] [place], [place] [address] (Wo rk) 05/14/2022 Office Visit Cardiology Livan Sharif MD [address] [facility] [address] [place], [place] [address] (Wo rk) 05/31/2022 Office Visit Family Practice Valery Veronica , PAUcheC [address] [place], [place] [address] (Wo rk) documented as of this encounter Visit Diagnoses Diagnosis NO SHOW - Primary documented in this encounter Additional Health Concerns Assessment Noted Time PHQ-9 Depression Total Score: 6 09/29/2020 3:25 PM CDT documented as of this encounter Care Teams Bladder Blower Relationship Specialty Start Date End Date Marija Edgar APRN PCP - General Nurse Practitioner 04/30/20 FIELD AUDITOR [address] [place] [address] Lita Oseguera Personal Advocate & 02/28/20 Liaison (PAL) Chanelle Mccann Assigned OBGYN Provider 05/02/20 05/09/21 ARLENE Mooney CNM [address] [place], [address] [place], [place] [address] Kyara De La Fuente RN Specialty Care Neurology 06/04/20 03/05/21 Coordinator Marija Edgar APRN Assigned PCP 06/08/20 FIELD AUDITOR [address] [place] [address] Mynor Broussard MD Assigned Surgical 06/01/20 11/28/21 [address] [place] Provider [address] [place] [phone] Mauri, Assigned Neuroscience 06/04/20 MD Keisha Provider [address] [place], [place] [address] Galo Burrell MD Assigned Heart and 10/05/20 04/02/22 [address] Vascular Provider [address] [place] [phone] documented as of this encounter
--- OUTSIDE RECORDS SUMMARY | 2022-04-28 01:14 | XMS_ITS | Encounter Summary ---
:2000 Author Organization [place] Address [address] [facility] [place] [address] Care Team Providers Name Role Phone Lita Oseguera Unavailable Unavailable Marija Edgar APRN GRADE RECORDER Primary Care Provider [phone] Chanelle Mccann APRN CNM Unavailable + Kyara De La Fuente RN Unavailable Marija Edgar APRN GRADE RECORDER Unavailable Mynor Broussard MD Unavailable Keisha Dotson MD Unavailable Galo Burrell MD Unavailable Encounter Details Date Type Department Care Team Description 02/17/2021 Medical Correspondence [facility] Non-Provider POST-MOOK Srvcs DEPRESSION SCALE [address] [place] [address] [place] [address] WELL-CHILD VISITS [phone] Social History Tobacco Use Types Packs/Day Years [...] How often do you attend jain or judaism services? Never 09/22/2021 Do you belong to any clubs or organizations such as No 09/22/2021 jain groups, unions, fraLoud Games or athletic groups, or school groups? How [...] Office Visit Family Practice Anthony Doe PA-C [address] [place], [place] [phone] (Wo rk) 05/03/2022 Office Visit Dermatology Neil Kent M D [address] [place] [phone] (Wo rk) 05/05/2022 Office Visit Optometry Yeny David, OD [address] [facility] [place] [address] (Wo rk) 05/11/2022 Virtual Visit Pharm D Diana Desir , [facility] [address] [place] [address] (Wo rk) 05/14/2022 Office Visit Cardiology Livan Sharif MD [address], [facility] [address] [place], [place] [address] (Wo rk) 05/31/2022 Office Visit Family Practice Valery Veronica , PAUcheC [address] [place], [place] [address] (Wo rk) documented as of this encounter Visit Diagnoses Not on filedocumented in this encounter Additional Health Concerns Assessment Noted Time PHQ-9 Depression Total Score: 6 09/29/2020 3:25 PM CDT documented as of this encounter Care Teams Service Writer Advisor Relationship Specialty Start Date End Date Marija Edgar APRN PCP - General Nurse Practitioner 04/30/20 GRADE RECORDER [address] [place], [place] [phone] Lita Oseguera Personal Advocate & 02/28/20 Liaison (PAL) Chanelle Mccann Assigned OBGYN Provider 05/02/20 05/09/21 ARLENE Mooney [facility] [address] [address] [facility] [address] [place], [place] [address] Kyara De La Fuente, VJ Specialty Care Neurology 06/04/20 03/05/21 Coordinator Marija Edgar APRN Assigned PCP 06/08/20 GRADE RECORDER [address] [place], [place] [phone] Mynor Broussard MD Assigned Surgical 06/01/20 11/28/21 [address] [place] Provider [address] [place] [address] Mauri, Assigned Neuroscience 06/04/20 MD Keisha Provider [address] [place] [address] Galo Burrell MD Assigned Heart and 10/05/20 04/02/22 [address] Vascular Provider [address] [place] [address] documented as of this encounter
--- OUTSIDE RECORDS SUMMARY | 2022-04-28 01:14 | XMS_ITS | Encounter Summary ---
:2000 Author Organization [place] Address [address] [place] [address] Care Team Providers Name Role Phone Lita Oseguera Unavailable Unavailable Marija Edgar APRN SOLAR LAB TECHNICIAN Primary Care Provider [phone] Chanelle Mccann APRN CNM Unavailable + Marija Edgar APRN SOLAR LAB TECHNICIAN Unavailable Mynor Broussard MD Unavailable Keisha Dotson MD Unavailable Galo Burrell MD Unavailable Encounter Details Date Type Department Care Team Description 03/18/2021 Travel Social History Tobacco Use Types Packs/Day [...] How often do you attend restorationism or religion services? Never 09/22/2021 Do you [...] Office Visit Family Practice Anthony Doe, R[address] [address] [place], [place] [phone] (Wo rk) 05/03/2022 Office Visit Dermatology Neil Kent M D [address] [place], [place] [address] (Wo rk) 05/05/2022 Office Visit Optometry Yeny David, OD [address] [facility] [place] [address] (Wo rk) 05/11/2022 Virtual Visit Pharm D Diana Desir , [facility] [address] [place], [place] [address] (Jefferson carlson) 05/14/2022 Office Visit Cardiology Livan Sharif MD [address], [place] [address] [place] [id number] (Wo rk) 05/31/2022 Office Visit Family Practice Valery Veronica , PA-C [address] [place], [place] [address] (Wo rk) documented as of this encounter Visit Diagnoses Not on filedocumented in this encounter Additional Health Concerns Assessment Noted Time PHQ-9 Depression Total Score: 2 03/03/2021 7:02 AM CDT documented as of this encounter Care Teams Mainspring Strip Inspector Relationship Specialty Start Date End Date Marija Edgar APRN PCP - General Nurse Practitioner 04/30/20 SOLAR LAB TECHNICIAN [address] [place] [address] Lita Oseguera Personal Advocate & 02/28/20 Liaison (PAL) Chanelle Mccann Assigned OBGYN Provider 05/02/20 05/09/21 [place] [address] [address] [facility] [address] [place], [place] [address] Marija Edgar APRN Assigned PCP 06/08/20 SOLAR LAB TECHNICIAN [address] [place], [place] [phone] Mynor Broussard MD Assigned Surgical 06/01/20 11/28/21 [address] [facility] Provider [address] [place] [address] Mauri, Assigned Neuroscience 06/04/20 MD Keisha Provider [address] [place] [address] Galo Burrell MD Assigned Heart and 10/05/20 04/02/22 [address] Vascular Provider [address] [place] [address] documented as of this encounter
--- OUTSIDE RECORDS SUMMARY | 2022-04-28 01:14 | XMS_ITS | Encounter Summary ---
:2000 Author Organization [place] Address [address] [place] [address]. [place] [address] Care Team Providers Name Role Phone Lita Oseguera Unavailable Unavailable Marija Edgar APRN SILK BRUSHER Primary Care Provider [phone] Chanelle Mccann APRN CNM Unavailable + Marija Edgar APRN SILK BRUSHER Unavailable Mynor Broussard MD Unavailable Keisha Dotson MD Unavailable Galo Burrell MD Unavailable Reason for Referral Diagnostic Imaging XR (Routine) - Closed Specialty Diagnoses / Procedures Referred By Contact Refer red To Contact Diagnoses Slow transit constipation Nicole Garcia PA-C Procedures XR Abdomen [address] [address] Referral ID Status Reason Start Date Expiration Date Visits Requ ested Visits Authorized [id number] Closed 03/23/2021 03/23/2022 1 1 Reason for Visit Reason Comments Urgent Care Black stool x 2 days ago wit h diarrhea, hard stool x 2 weeks and bilateral low back pain with throbbing pain Encounter Details Date Type Department Care Team Description 03/23/2021 Office Visit [facility] Garcia, Nicole, Slow tra nsit Urgent Care [place] CARI-Romana constipation (Primary [address] [place] [address]) [place], [place] [facility] [address] [address] [phone] [place] [address] Social History Tobacco Use Types Packs/Day Years [...] week 09/22/2021 How often do you attend mormonism or restorationism services? Never 09/22/2021 Do you belong to any clubs or organizations such as No 09/22/2021 mormonism groups, unions, fraternal or athletic groups, or [...] Sign Reading Time Taken Comments Blood Pressure 102/62 03/23/2021 10:54 AM CDT Pulse 82 03/23/2021 10:54 AM CDT Temperature 36.7 ??C (98.1 ??F) 03/23/2021 10:54 AM CDT Respiratory Rate - - Oxygen Saturation - - Inhaled Oxygen Concentration - - Weight 91.6 kg (202 lb) 03/23/2021 10:54 AM CDT Height - - Body Mass Index 32.6 03/06/2021 4:10 PM CDT documented in this encounter Patient Instructions Patient InstructionsAlNicole rodríguez PA-C - 03/23/2021 10:40 AM CDT Patient was educated on the natural course of condition. Hemoglobin was normal and increased since last. X-ray of abdomen shows moderate amount of stool. Conservative measures discussed including increased water intake, high fiber diet, exercise, stool softeners (Miralax), and analgesics (Tylenol) forpain. Food such as plums, prunes, and pears will also help relieve constipation. See your primary care provider if symptoms worsen or do not improve in 3 days. Seek emergency care if you develop worsening abdominal pain or severe abdominal distention. documented in this encounter Progress Notes Nicole Garcia PA-C - 03/23/2021 10:40 AM CDT URGENT CARE VISIT: SUBJECTIVE: Kim Johnson is a 20 year old female with history of GERD who presents with black diarrhea stools for 2 days and hard stools for 2 weeks prior. Associated symptoms include low back pain. Denies abdominal pain, n/v, dizziness, dysuria, frequency, or vaginal discharge. Symptoms have been stable. She denies dietary changes or new medications. No treatments have been tried. Nothing makes it better or worse. PMH: Past Medical History: Diagnosis Date ??? Anxiety ??? Chronic kidney disease stones, history of infections ??? Depressive disorder ??? Gastroesophageal reflux disease ??? Psoriasis ??? Seizure (H) 05/02/2019 no seizure since 2017 ??? SVT (supraventricular tachycardia) (H) Allergies: Patient has no known allergies. Medications: Current Outpatient Medications Medication Sig Dispense Refill ??? polyethylene glycol (MIRALAX) 17 GM/Dose powder Take 17 g (1 capful) by mouth daily for 3 days 51 g 0 ??? hydrocortisone (WESTCORT) 0.2 % external [...] 135 tablet 0 Social History: Social History Socioeconomic History ??? Marital status: Single Spouse name: Not on file ??? Number of children: Not on file ??? Years of education: Not on file ??? Highest education level: 12th grade Occupational History ??? Not on file Tobacco Use ??? Smoking status: Former Smoker Packs/day: 1.00 Types: Other Quit date: 12/07/2019 Years since quittin.2 ??? Smokeless tobacco: Never Used Vaping Use ??? Vaping Use: Never used Substance and Sexual Activity ??? Alcohol use: Not Currently ??? Drug use: No ??? Sexual activity: Yes Partners: Male Other Topics Concern ??? Parent/sibling w/ CABG, AL or angioplasty before 65F 55M? Not Asked Social History Narrative ??? Not on file Social Determinants of Health Financial Resource Strain: [...] and Family: Once a week ??? Attends Advent Services: More than 4 times per year ??? Active Member of Clubs or Organizations: No ??? Attends Club or Organization Meetings: Never ??? Marital Status: Never Intimate Partner Violence: Not At Risk ??? Fear of Current or Ex-Partner: No ??? Emotionally Abused: No ??? Physically Abused: No ??? Sexually Abused: No ROS: ROS otherwise found to be negative except as noted above. OBJECTIVE: BP 102/62 Pulse 82 Temp 98.1 ??F (36.7 ??C) (Oral) Wt 91.6 kg (202 lb) LMP 02/18/2020 (Approximate) Yes BMI 32.60 kg/m?? GENERAL APPEARANCE: healthy, alert and no distress EYES: EOMI, PERRL, conjunctiva clear RESP: lungs clear to auscultation - no rales, rhonchi or wheezes CV: regular rates and rhythm, normal S1 S2, no murmur noted ABDOMEN: soft, nontender, no HSM or masses and bowel sounds normal MS: No spinal TTP, extremities normal- no gross deformities noted, no erythema, FROM noted in all extremities. SKIN: no suspicious lesions or rashes LABS: Results for orders placed or performed in visit on 03/23/21 XR Abdomen 2 Views Status: None Narrative ABDOMEN TWO-THREE VIEW 03/23/2021 11:47 AM HISTORY: Melena. COMPARISON: None. FINDINGS: Moderate amount of stool. No free air. There are no air filled distended loops of small bowel. The colon is not distended. The lung bases are unremarkable. Impression IMPRESSION: Nonobstructed bowel gas pattern. CHIDI SCHWARTZ MD Results for orders placed or performed in visit on 03/23/21 Hemoglobin Status: Abnormal Result Value Ref Range Hemoglobin 11.6 (L) 11.7 - 15.7 g/dL HCG Qual, Urine ([id number]) Status: Normal Result Value Ref Range hCG Urine Qualitative Negative Negative ASSESSMENT: ICD-10-CM 1. Slow transit constipation K59.01 XR Abdomen 2 Views Hemoglobin HCG Qual, Urine ([id number]) Comprehensive metabolic panel Hemoglobin HCG Qual, Urine ([id number]) Comprehensive metabolic panel polyethylene glycol (MIRALAX) 17 GM/Dose powder PLAN: 30 minutes spent during clinic visit. Patient Instructions Patient was educated on the natural course of condition. Hemoglobin was normal and increased since last. X-ray of abdomen shows moderate amount of stool. Ddx considered includes constipation, PUD, upper GI bleed, diet, among others. Given the 2 week hx of hard stools and x-ray abdomen finding, her symptoms are likely attributed to constipation which can lead to diarrhea if not resolved. Conservative measures discussed including increased water intake, high fiber diet, exercise, stool softeners (Miralax), and analgesics (Tylenol) for pain. Food such as plums, prunes, and pears will also help relieveconstipation. See your primary care provider if symptoms worsen or do not improve in 3 days. Seek emergency care if you develop worsening abdominal pain or severe abdominal distention. Patient verbalized understanding and is agreeable to plan. The patient was discharged ambulatory andin stable condition. Nicole Garcia PA-C .................... 03/23/2021 12:31 PM documented in this encounter Plan of Treatment Upcoming Encounters Date Type Specialty Care Team Description 04/28/2022 Office Visit Family Practice Anthony Doe PA-C [address] [place], [place] [phone] (Wo rk) 05/03/2022 Office Visit Dermatology Neil Kent M D [address] [place] [address] (Wo rk) 05/05/2022 Office Visit Optometry Yeny David, OD [address] [facility] [place] [id number] (Wo rk) 05/11/2022 Virtual Visit Pharm D Diana Desir , [facility] [address] [place] [address] (Wo rk) 05/14/2022 Office Visit Cardiology Lvian Sharif MD [address], [place] [address] [place] [address] (Wo rk) 05/31/2022 Office Visit Family Practice Valery Veronica , ROVERTO [address] [place] [address] (Wo rk) documented as of this encounter Procedures Procedure Name Priority Date/Time Associated Diagnosis Comme nts HCG QUALITATIVE URINE Routine 03/23/2021 11:46 Slow transit Re sults for this AM CDT constipation procedure are i n the results section. HEMOGLOBIN Routine 03/23/2021 11:44 Slow transit Results for this AM CDT constipation procedure are i n the results section. COMPREHENSIVE Routine 03/23/2021 11:43 Slow transit Results fo r this METABOLIC PANEL AM CDT constipation procedure ar e in the results section. [...] are unremarkable. IMPRESSION: Nonobstructed bowel gas barb ern. CHIDI SCHWARTZ MD Nicole Garcia PA-C IMG DIAGNOSTIC IMAGING ORDER GARY HCG Qual, Urine ([id number]) (03/23/2021 11:46 AM CDT) Patholo gist Method Time Signature hCG Urine Negative Negative REINA 03/23/2021 [facility] Qualitative 11:56 AM CDT Comment: This test is for screening purp oses. Results should be interpreted along with the clinical picture. Confirmation testing is available if warranted by ordering [id number], HCG Quantitative . Specimen Anatomical Collection Method Collection Time Receive d Time (Source) Location / / Volume Laterality Urine MID-STREAM URINE Non-blood 03/23/2021 11:46 021 SPECIMEN / Unknown Collection / AM CDT 11:47 AM CDT Unknown Nicole Garcia PA-C LAB - URINE ORDERABLES Performing Organization Address City/State/ZIP Code Phon [place] [address] Lab [address] [facility] (no room number, 1st floor of clinic) [place] [address], [phone] [facility] [address] [facility] (no room number, 1st floor of clinic) (ABNORMAL) Hemoglobin (03/23/2021 11:44 AM CDT) P athologist Signature Hemoglobin 11.6 (L) 11.7 - 15.7 03/23/2021 [facility] g/dL 12:10 PM CDT Specimen Anatomical Collection Method / Collection Time Recei chelsie Time (Source) Location / Volume Laterality Blood STRUCTURE OF RIGHT Venipuncture / 03/23/2021 11:44 UPPER LIMB / Unknown AM CDT 11:44 AM CDT Unknown Nicole Garcia PA-C LAB - BLOOD ORDERABLES Performing Organization Address City/State/ZIP Code Phon [place] Number [place] [address] Lab [address] [facility] (no room number, 1st floor of clinic) [place] [address], [phone] [facility] [address] [facility] (no room number, 1st floor of clinic) (ABNORMAL) Comprehensive metabolic panel (03/23/2021 11:43 AM CDT) Analysis Performed At Patho logist Time Signature Sodium 138 133 - 144 03/24/2021 [facility] mmol/L 7:53 PM CDT Potassium 4.1 3.4 - 5.3 03/24/2021 [facility] mmol/L 7:53 PM CDT Chloride 107 94 - 109 03/24/2021 [facility] mmol/L 7:53 PM CDT Carbon Dioxide 26 20 - 32 03/24/2021 [facility] (CO2) mmol/L 7:53 PM CDT Anion Gap 5 3 - 14 03/24/2021 [facility] mmol/L 7:53 PM CDT Urea Nitrogen 11 7 - 30 03/24/2021 [facility] mg/dL 7:53 PM CDT Creatinine 0.66 0.52 - 03/24/2021 [facility] 1.04 mg/dL 7:53 PM CDT Calcium 8.6 8.5 - 10.1 03/24/2021 [facility] mg/dL 7:53 PM CDT Glucose 78 70 - 99 03/24/2021 [facility] mg/dL 7:53 PM CDT Alkaline 76 40 - 150 03/24/2021 [facility] Phosphatase U/L 7:53 PM CDT AST 26 0 - 45 U/L 03/24/2021 [facility] 7:53 PM CDT ALT 64 (H) 0 - 50 U/L 03/24/2021 [facility] 7:53 PM CDT Protein Total 7.5 6.8 - 8.8 03/24/2021 [facility] g/dL 7:53 PM CDT Albumin 3.7 3.4 - 5.0 03/24/2021 [facility] g/dL 7:53 PM CDT Bilirubin Total 0.3 0.2 - 1.3 03/24/2021 [facility] mg/dL 7:53 PM CDT GFR Estimate >90 >60 03/24/2021 [facility] mL/min/1.7 7:53 PM CDT 3m2 Comment: As of January [...] Laterality Blood STRUCTURE OF RIGHT Venipuncture / 03/23/2021 11:43 UPPER LIMB / Unknown AM CDT 11:44 AM CDT Unknown Nicole Garcia PA-C LAB - BLOOD ORDERABLES Performing Organization Address City/State/ZIP Code Phon [place] [address] Care Lab [address] [facility], Room M309 documented in this encounter Visit Diagnoses Diagnosis Slow transit constipation - Primary Melena Blood in stool documented in this encounter Additional Health Concerns Assessment Noted Time PHQ-9 Depression Total Score: 2 03/03/2021 7:02 AM CDT documented as of this encounter Care Teams Thread Milling Machine Set Up Operator Relationship Specialty Start Date End Date Marija Edgar APRN PCP - General Nurse Practitioner 04/30/20 SILK BRUSHER [address] [place] [address] Lita Oseguera Personal Advocate & 02/28/20 Liaison (PAL) Chanelle Mccann Assigned OBGYN Provider 05/02/20 05/09/21 [place] [address] [address] [facility] 200 [place] [address] Marija Edgar APRN Assigned PCP 06/08/20 SILK BRUSHER [address] [place] [address] Mynor Broussard MD Assigned Surgical 06/01/20 11/28/21 [address] [place] Provider [address] [place] [address] Mauri, Assigned Neuroscience 06/04/20 MD Keisha Provider [address] [place] [address] Galo Burrell MD Assigned Heart and 10/05/20 04/02/22 [address] Vascular Provider [address] [place] [address] documented as of this encounter
--- OUTSIDE RECORDS SUMMARY | 2022-04-28 01:14 | XMS_ITS | Encounter Summary ---
:2000 Author Organization [place] Address [address] [place] [address] Care Team Providers Name Role Phone Lita Oseguera Unavailable Unavailable Marija Edgar APRN AUTOMOTIVE SERVICE CONSULTANT Primary Care Provider [phone] Chanelle Mccann APRN CNM Unavailable + Marija Edgar APRN AUTOMOTIVE SERVICE CONSULTANT Unavailable Mynor Broussard MD Unavailable Keisha Dotson MD Unavailable Galo Burrell MD Unavailable Encounter Details Date Type Department Care Team Description 03/12/2021 Travel Social History Tobacco Use Types Packs/Day [...] How often do you attend presybeterian or mormon services? Never 09/22/2021 Do you [...] been in contact with No / Unsure 03/12/2021 2:52 PM CDT someone who was confirmed or suspected to have Coronavirus / COVID-19? documented as of this encounter Plan of Treatment Upcoming Encounters Date Type Specialty Care Team Description 04/28/2022 Office Visit Family Practice Anthony Doe, ROVERTO [address] [place], [place] [phone] (Wo rk) 05/03/2022 Office Visit Dermatology Niel Kent M D [address] [place], [place] [address] (Wo rk) 05/05/2022 Office Visit Optometry Yeny David, OD [address] [facility] [place] [address] (Wo rk) 05/11/2022 Virtual Visit Pharm D Diana Desir , [facility] [address] [place], [place] [address] (Jefferson carlson) 05/14/2022 Office Visit Cardiology Livan Sharif MD [address], [place] [address] [place] [id number] (Wo rk) 05/31/2022 Office Visit Family Practice Valery Veronica , PA-C [address] [place], [place] [address] (Wo rk) documented as of this encounter Visit Diagnoses Not on filedocumented in this encounter Additional Health Concerns Assessment Noted Time PHQ-9 Depression Total Score: 2 03/03/2021 7:02 AM CDT documented as of this encounter Care Teams Trainmaster Relationship Specialty Start Date End Date Mairja Edgar APRN PCP - General Nurse Practitioner 04/30/20 AUTOMOTIVE SERVICE CONSULTANT [address] [place] [address] Lita Oseguera Personal Advocate & 02/28/20 Liaison (PAL) Chanelle Mccann Assigned OBGYN Provider 05/02/20 05/09/21 [place] [address] [address] [facility] [address] [place], [place] [address] Marija Edgar APRN Assigned PCP 06/08/20 AUTOMOTIVE SERVICE CONSULTANT [address] [place], [place] [phone] Mynor Broussard MD Assigned Surgical 06/01/20 11/28/21 [address] [facility] Provider [address] [place] [id number] Mauri, Assigned Neuroscience 06/04/20 MD Keisha Provider [address] [place] [address] Galo Burrell MD Assigned Heart and 10/05/20 04/02/22 [address] Vascular Provider [address] [place] [address] documented as of this encounter
--- OUTSIDE RECORDS SUMMARY | 2022-04-28 01:14 | XMS_ITS | Encounter Summary ---
:2000 Author Organization [place] Address [address] [place] [address] Care Team Providers Name Role Phone Lita Oseguera Unavailable Unavailable Marija Edgar APRN UTILIZATION MANAGEMENT UM NURSE Primary Care Provider [phone] Chanelle Mccann LEAD SYSTEMS ENGINEER CNM Unavailable + Marija Edgar APRN UTILIZATION MANAGEMENT UM NURSE Unavailable Mynor Broussard MD Unavailable Keisha Dotson [...] [facility] STATISTIC IV PUSH SINGLE INITIAL SUBSTANCE CT ECHO MYOCARD BX CT INJECTION, PERFLUTREN LIPID MICROSPHERES, PER ML CT TTE W/DOPPLER, COMPLETE [place] [address] CT IV PUSH SINGLE, INITIAL S UBSTANCE CT TTE W/DOPPLER, COMPLETE CT TTE W/DOPPLER, COMPLETE HC US GUIDE FOR PERICARDIOCENTESIS HC ECHO MYOCARD BX HC IV PUSH SINGLE, INITIAL SUBSTANCE HC STATISTIC IV PUSH SINGLE INITIAL SUBSTANCE HC ECHO COMPLETE W DOPPLER W CONTRAST HC ECHO COMPLETE W DOPPLER W/O CONTRAST Referral ID Status Reason Start Date Expiration Date Visits Requ ested Visits Authorized [id number] Closed 03/06/2021 03/06/2022 1 1 Reason for [...] [facility] STATISTIC IV PUSH SINGLE INITIAL SUBSTANCE CT ECHO MYOCARD BX CT INJECTION, PERFLUTREN LIPID MICROSPHERES, PER ML CT TTE W/DOPPLER, COMPLETE [place] [address] CT IV PUSH SINGLE, INITIAL S UBSTANCE CT TTE W/DOPPLER, COMPLETE CT TTE W/DOPPLER, COMPLETE HC US GUIDE FOR PERICARDIOCENTESIS HC ECHO MYOCARD BX HC IV PUSH SINGLE, INITIAL SUBSTANCE HC STATISTIC IV PUSH SINGLE INITIAL SUBSTANCE HC ECHO COMPLETE W DOPPLER W CONTRAST HC ECHO COMPLETE W DOPPLER W/O CONTRAST Referral ID Status Reason Start Date Expiration Date Visits Requ ested Visits Authorized [id number] Closed 03/06/2021 03/06/2022 1 1 Encounter Details Date Type Department Care Team Description 03/18/2021 Hospital Encounter [facility] Zachary Burrell MD [facility] [address] (supraven tricular Heart [facility] [address] tachycardia) (H) [address] [place] [address] [place], [place] [phone] [address] (Work) [phone] Social History Tobacco Use Types Packs/Day Years [...] How often do you attend tenriism or nondenominational services? Never 09/22/2021 Do you [...] Description 04/28/2022 Office Visit [facility] Anthony Doe, PA-C [address] [place] [address] (Wo rk) 05/03/2022 Office Visit Dermatology Neil Kent M D 500 [place] [address] (Wo rk) 05/05/2022 Office Visit Optometry Yeny David, OD [address] [facility] [address] [place] [id number] (Wo rk) 05/11/2022 Virtual Visit Pharm D Diana Desir , [facility] [address] [place], [place] [phone] (Wo rk) 05/14/2022 Office Visit Cardiology Livan Sharif MD [address] [facility] [address] [place], [place] [address] (Wo rk) 05/31/2022 Office Visit [facility] Valery Veronica , PA-C [address] [place] [address] (Wo rk) documented as of this encounter Procedures Procedure Name Priority Date/Time Associated Diagnosis Comme nts ECHO COMPLETE Routine 03/18/2021 3:16 PM SVT (supraventricular Results for this CDT tachycardia) (H) procedure a re in the results section . documented in this encounter Results ECHO COMPLETE (03/18/2021 3:16 PM CDT) P athologist Signature LVEF 60-65% CARDIOLOGY RESULTS Anatomical Region Laterality Modality Echocardiography Specimen (Source) Anatomical Collection Method Collection Time Re ceived Time Location / / Volume Laterality 03/18/2021 2:50 PM CDT Narrative 03/18/2021 5:08 PM CDT [id number]^ROGER^ZACHARY [facility] [address] [place] [address] Name: KIM CLARK : 2000 Study Date: 03/18/2021 02:50 PM Age: 20 yrs Gender: Female Patient Location: [facility] Reason For Study: SVT Ordering Physician: [...] note might be different from the original. [id number]^ROGER^ZACHARY [facility] [address] [place] [address] Name: KIM CLARK : 2000 Study Date: 03/18/2021 02:50 PM Age: 20 yrs Gender: Female Patient Location: [facility] Reason For Study: SVT Ordering Physician: [...] PM Zachary Burrell MD CV ECHO ORDERABLES documented in this encounter Visit Diagnoses Diagnosis SVT (supraventricular tachycardia) (H) Other specified cardiac dysrhythmias documented in this encounter Additional Health Concerns Assessment Noted Time PHQ-9 Depression Total Score: 2 03/03/2021 7:02 AM CDT documented as of this encounter Care Teams General Manager In Training Relationship Specialty Start Date End Date Marija Edgar APRN PCP - General Nurse Practitioner 04/30/20 UTILIZATION MANAGEMENT UM NURSE [address] [place] [address] Lita Oseguera Personal Advocate & 02/28/20 Liaison (PAL) Chanelle Mccann Assigned OBGYN Provider 05/02/20 05/09/21 ARLENE Mooney CNM [address] [place], [address] [place] [address] Marija Edgar APRN Assigned PCP 06/08/20 UTILIZATION MANAGEMENT UM NURSE [address] [place] [address] Mynor Broussard MD Assigned Surgical 06/01/20 11/28/21 [address] [place] Provider [address] [place] [address] Mauri, Assigned Neuroscience 06/04/20 MD Keisha Provider [address] [place] [address] Zachary Burrell MD Assigned Heart and 10/05/20 04/02/22 [address] Vascular Provider [address] [place] [address] documented as of this encounter
--- OUTSIDE RECORDS SUMMARY | 2022-04-28 01:14 | XMS_ITS | Encounter Summary ---
:2000 Author Organization [place] Address [address] [place] [address]. [place] [address] Care Team Providers Name Role Phone Lita Oseguera Unavailable Unavailable Marija Edgar APRN MOTORBOAT MECHANIC INBOARD Primary Care Provider [phone] Chanelle Mccann TAIL SAWYER CNM Unavailable + Kyara De La Fuente RN Unavailable Marija Edgar APRN MOTORBOAT MECHANIC INBOARD Unavailable Mynor Broussard MD Unavailable Keisha Dotson MD Unavailable Galo Burrell MD Unavailable Reason for Visit Reason Onset Date Comments No Show 02/16/2021 Encounter Details Date Type Department Care Team Description 02/16/2021 Office Visit [facility] Marija Edgar NO SHO W (Primary Dx) Clinic [place] TAIL SAWYER MOTORBOAT MECHANIC INBOARD [address] [address] [phone] Social History Tobacco Use Types Packs/Day Years [...] week 09/22/2021 How often do you attend jainism or evangelical services? Never 09/22/2021 Do you belong to any clubs or organizations such as No 09/22/2021 jainism groups, unions, fraMediGain or athletic groups, or school groups? How [...] been in contact with No / Unsure 01/18/2021 12:52 PM CDT someone who was confirmed or suspected to have Coronavirus / COVID-19? documented as of this encounter Progress Notes Marija Edgar APRN CNP - 02/16/2021 5:30 PM CDT This patient was a no show for this scheduled appointment. documented in this encounter Plan of Treatment Upcoming Encounters Date Type Specialty Care Team Description 04/28/2022 Office Visit Family [facility] Anthony Doe, PA-C [address] [place] [address] (Wo rk) 05/03/2022 Office Visit Dermatology Neil Kent M D [address] [place] [address] (Wo rk) 05/05/2022 Office Visit Optometry Yeny David, OD [address] [facility] [address] [place], [place] [phone] (Wo rk) 05/11/2022 Virtual Visit Pharm D Diana Desir , [facility] [address] [place], [place] [address] (Wo rk) 05/14/2022 Office Visit Cardiology Livan Sharif MD [address] [facility] [address] [place], [place] [address] (Wo rk) 05/31/2022 Office Visit Family Practice Valery Veronica PA-C [address] [place], [place] [address] (Wo rk) documented as of this encounter Visit Diagnoses Diagnosis NO SHOW - Primary documented in this encounter Additional Health Concerns Assessment Noted Time PHQ-9 Depression Total Score: 6 09/29/2020 3:25 PM CDT documented as of this encounter Care Teams Timekeeping Supervisor Relationship Specialty Start Date End Date Marija Edgar APRN PCP - General Nurse Practitioner 04/30/20 MOTORBOAT MECHANIC INBOARD [address] [place] [address] Lita Oseguera Personal Advocate & 02/28/20 Liaison (PAL) Chanelle Mccann Assigned OBGYN Provider 05/02/20 05/09/21 [place] [address] [address] [facility] [address] [place], [place] [address] Kyara De La Fuente, VJ Specialty Care Neurology 06/04/20 03/05/21 Coordinator Marija Edgar APRN Assigned PCP 06/08/20 MOTORBOAT MECHANIC INBOARD [address] [place], [place] [phone] Mynor Broussard MD Assigned Surgical 06/01/20 11/28/21 [address] [place] Provider [address] [place] [address] Mauri, Melody Neuroscience 06/04/20 MD Keisha Provider [address] [place], [place] [address] Galo Burrell MD Assigned Heart and 10/05/20 04/02/22 [address] Vascular Provider [address] [place] [address] documented as of this encounter
--- OUTSIDE RECORDS SUMMARY | 2022-04-28 01:14 | XMS_ITS | Encounter Summary ---
:2000 Author Organization [place] Address [address] [place] [address] Care Team Providers Name Role Phone Lita Oseguera Unavailable Unavailable Marija Edgar APRN FISH PROCESSOR Primary Care Provider [phone] Chanelle Mccann APRN CNM Unavailable + Kyara De La Fuente RN Unavailable Marija Edgar APRN FISH PROCESSOR Unavailable Mynor Broussard MD Unavailable Keisha Dotson MD Unavailable Galo Burrell MD Unavailable Reason for Visit Reason Comments Follow Up Encounter Details Date Type Department Care Team Description 02/24/2021 Virtual Visit [facility] Ruthie Dotson seizures (H) (Primary Dx); [address] Romina Valdes MD Convulsions, unspecified convulsion type (H) [place], [address] [place] [id number] Social History Tobacco Use Types Packs/Day Years [...] How often do you attend rastafarian or gnosticist services? Never 09/22/2021 Do you belong to [...] encounter Progress Notes Magdalena Anne CMA - 02/24/2021 11:00 AM CDT Called patient, no answer. Left voicemail message for patient to call me back for rooming process. Keisha Dotson MD - 02/24/2021 11:00 AM CDT Kim is a 20 year old who is being evaluated via a billable telephone visit. What phone number would you like to be contacted at? [phone] How would you like to obtain your AVS? Kim Phone call duration: 30 minutes [facility] Progress Note Patient: Kim Medina Alex : 2000 Age: [age] year old Today's Virtual Visit: 02/24/2021 History of Present Illness: Kim was last seen 08/2020. Her baby is now 6 weeks, healthy girl. She had no seizures. She is taking levetiracetam 500 mg daily. Denies side effects. 3 hr EEG on 08/20/2019, which was normal. Other issues: She has supraventricular tachycardia. She stated on metoprolol. Current Outpatient Medications Medication Sig Dispense Refill ??? levETIRAcetam (KEPPRA) 500 MG tablet Take 1 tab twice a day for 1 week and then 1 1/2 tabs twicea day (Patient taking differently: Take 500 mg by mouth daily 1 tab once a day) 90 tablet 3 ??? metoprolol succinate ER (TOPROL-XL) 25 MG 24 hr tablet Take 1/2 tab once daily 90 tablet 2 ??? omeprazole (PRILOSEC) [address] capsule Take 1 capsule (40 mg) by mouth daily 90 capsule 3 ??? Vit-Fe Fumarate-FA ( MULTIVITAMIN W/IRON) 27-0.8 MG tablet Take 1 tablet by mouth daily 90 tablet 3 ??? sertraline (ZOLOFT) 100 MG tablet TAKE ONE AND ONE-HALF TABLETS BY MOUTH EVERY DAY 135 tablet 0 Perceived AED Side Effects: No Medication Notes: AED Medication Compliance: compliant most of the time Other Issues: Is patient safe to drive: Yes Assessment and Plan: Epilepsy, NOS: It has been approximately 3 years since her last seizure. She had one definite seizure and 2 possible seizures when she woke up confused and/or tongue biting. She was always taking levetiracetam 500 mg daily. She had anxiety when she was on a higher dose. She wonders if she can come offlevetiracetam. I advised her that she needs to be very cautious with caring of her baby if she wantsto discontinue her medication. She should avoid bathing her alone, and carry her in her lap. She says she doesn't have any one to help with taking care of her baby. She decided to continue taking levetiracetam until her baby gets older. She doesn't like to increase her levetiracetam since she believesshe did not have any seizures on this dose for a long time. I discussed doing a brain MRI to rule out structural lesion causing seizures. -Continue LVT as before. -Three [place] brain MRI with epilepsy protocol. -Follow-up in 6 months As described above, I talked with the patient for 30 minutes and during this time counseling and answering patient's questions was greater than 50% of the visit time. Keisha Dotson MD documented in this encounter Plan of Treatment Upcoming Encounters Date Type Specialty Care Team Description 04/28/2022 Office Visit Family Practice Anthony Doe, ROV[address] [address] [place], [place] [phone] (Wo rk) 05/03/2022 Office Visit Dermatology Neil Kent M D [address] [place], [place] [address] (Wo rk) 05/05/2022 Office Visit Optometry Yeny David, OD [address] [facility] [address] [place] [phone] (Wo rk) 05/11/2022 Virtual Visit Pharm Diana Eckert , [facility] [address] [place], [place] [address] (Wo rk) 05/14/2022 Office Visit Cardiology Livan Sharif MD [address] [facility] [address] [place], [place] [address] (Wo rk) 05/31/2022 Office Visit Family Practice Valery Veronica PA-C 9[address] [place] [address] (Wo rk) Scheduled Orders Name Type Priority Associated Diagnoses Order S chedule MR Brain w/o & w Imaging Routine Other seizures (H) Expec maddie: 03/03/2021 Contrast (Approximate), Expires: 02/24/2022 documented as of this encounter Visit Diagnoses Diagnosis Convulsions, unspecified convulsion type (H) documented in this encounter Additional Health Concerns Assessment Noted Time PHQ-9 Depression Total Score: 6 09/29/2020 3:25 PM CDT documented as of this encounter Care Teams Panelboard Tank Pumper Relationship Specialty Start Date End Date Marija Edgar APRN PCP - General Nurse Practitioner 04/30/20 FISH PROCESSOR [address] [place], [place] [phone] Lita Oseguera Personal Advocate & 02/28/20 Liaison (PAL) Chanelle Mccann Assigned OBGYN Provider 05/02/20 05/09/21 [place] [address] [facility] [address] [place], [place] [address] Kyara De La Fuente RN Specialty Care Neurology 06/04/20 03/05/21 Coordinator Marija Edgar APRN Assigned PCP 06/08/20 FISH PROCESSOR [address] [place], [place] [phone] Mynor Broussard MD Assigned Surgical 06/01/20 11/28/21 [address] [facility] Provider [address] [place], [place] [address] Mauri, Melody Neuroscience 06/04/20 MD Keisha Provider [address] [place] [address] Galo Burrell MD Assigned Heart and 10/05/20 04/02/22 [address] Vascular Provider [address] [place] [address] documented as of this encounter
--- OUTSIDE RECORDS SUMMARY | 2022-04-28 01:14 | XMS_ITS | Encounter Summary ---
:2000 Author Organization [place] Address [address] [place] [address] Care Team Providers Name Role Phone Lita Oseguera Unavailable Unavailable Marija Edgar APRN WALKING DRAGLINE OILER Primary Care Provider [phone] Chanelle Mccann APRN CNM Unavailable + Marija Edgar APRN WALKING DRAGLINE OILER Unavailable Mynor Broussard MD Unavailable Keisha Dotson MD Unavailable Galo Burrell MD Unavailable Encounter Details Date Type Department Care Team Description 03/23/2021 Travel Social History Tobacco Use Types Packs/Day [...] week 09/22/2021 How often do you attend bahai or adventist services? Never 09/22/2021 Do you belong to any clubs or organizations such as No 09/22/2021 bahai groups, unions, fraternal or athletic groups, or [...] Office Visit Family Practice Anthony Doe, [address]OVERT[address] [address] [place], [place] [phone] (Wo rk) 05/03/2022 Office Visit Dermatology Neil Kent M D [address] [place], [place] [address] (Wo rk) 05/05/2022 Office Visit Optometry Yeny David, OD [address] [facility] [place] [address] (Wo rk) 05/11/2022 Virtual Visit Pharm D Diana Desir , [facility] [address] [place], [place] [address] (Jefferson carlson) 05/14/2022 Office Visit Cardiology Livan Sharif MD [address], [place] [address] [place] [id number] (Wo rk) 05/31/2022 Office Visit Family Practice Valery Veronica , PA-C [address] [place], [place] [address] (Wo rk) documented as of this encounter Visit Diagnoses Not on filedocumented in this encounter Additional Health Concerns Assessment Noted Time PHQ-9 Depression Total Score: 2 03/03/2021 7:02 AM CDT documented as of this encounter Care Teams Wholesale Diamond Broker Relationship Specialty Start Date End Date Marija Edgar APRN PCP - General Nurse Practitioner 04/30/20 WALKING DRAGLINE OILER [address] [place] [address] Lita Oseguera Personal Advocate & 02/28/20 Liaison (PAL) Chanelle Mccann Assigned OBGYN Provider 05/02/20 05/09/21 [place] [address] [address] [facility] 200 [place], [place] [address] Marija Edgar APRN Assigned PCP 06/08/20 WALKING DRAGLINE OILER [address] [place], [place] [phone] Mynor Broussard MD Assigned Surgical 06/01/20 11/28/21 [address] [facility] Provider [address] [place] [id number] Mauri, Assigned Neuroscience 06/04/20 MD Keisha Provider [address] [place] [address] Galo Burrell MD Assigned Heart and 10/05/20 04/02/22 [address] Vascular Provider [address] [place] [address] documented as of this encounter
--- OUTSIDE RECORDS SUMMARY | 2022-04-28 01:15 | XMS_ITS | Encounter Summary ---
:2000 Author Organization [facility] Address [address] [place] [address]. [place] [address] Care Team Providers Name Role Phone Lita Oseguera Unavailable Unavailable Marija Edgar APRN PAPER DELIVERER Primary Care Provider [phone] Chanelle Mccann APRN CNM Unavailable + Kyara De La Fuente RN Unavailable Marija Edgar APRN PAPER DELIVERER Unavailable Mynor Broussard MD Unavailable Keisha Dotson MD Unavailable Galo Burrell MD Unavailable Reason for Visit Reason Comments Fatigue Rule out rupture of membranes Encounter Details Date Type Department Care Team Description 01/11/[address] [facility] Minnie Aiken for triage [facility] Birthplace MD Gabo in patient [address] WORK FROM HOME (Primary Dx) [place], [place] [facility] [id number] [address] [facility] [phone] [address] [place] [id number] Social History Tobacco Use Types Packs/Day Years [...] week 09/22/2021 How often do you attend lutheran or congregation services? Never 09/22/2021 Do you belong to any clubs or organizations such as No 09/22/2021 lutheran groups, unions, fraternal or athletic groups, or [...] been in contact with No / Unsure 01/11/2021 3:14 PM CDT someone who was confirmed or suspected to have Coronavirus / COVID-19? documented as of this encounter Last Filed Vital Signs Vital Sign Reading Time Taken Comments Blood Pressure 126/66 01/11/2021 3:38 PM CDT Pulse - - Temperature 37.2 ??C (98.9 ??F) 01/11/2021 3:38 PM CDT Respiratory Rate 20 01/11/2021 3:38 PM CDT Oxygen Saturation - - Inhaled Oxygen Concentration - - Weight 93.9 kg (207 lb) 01/11/2021 3:47 PM CDT Height 167.6 cm (5' 6) 01/11/2021 3:47 PM CDT Body Mass Index 33.41 01/11/2021 3:47 PM CDT documented in this encounter Discharge Instructions Discharge InstructionsJose Bai RN - 01/11/2021 4:38 PM CDT Discharge Instruction for Undelivered Patients You were seen for: Membrane Assessment and fatigue We Consulted: Dr Aiken You had (Test or Medicine):Hgb stable, monitoring and tested for rupture of membranes-negative Diet: Drink 8 to 12 glasses of liquids (milk, juice, water) every day. You may eat meals and snacks. Increase liquids due to heat Activity: Call your doctor or nurse saas architect if your baby is moving less than usual. Call your provider if you notice: Swelling in your face or increased swelling in your hands or legs. Headaches that are not relieved by Tylenol (acetaminophen). Changes in your vision (blurring: seeing spots or stars.) Nausea (sick to your stomach) and vomiting (throwing up). Weight gain of 5 pounds or more per week. Heartburn that doesn't go away. Signs of bladder infection: pain when you urinate (use the toilet), need to go more often and more urgently. The bag of mac (rupture of membranes) breaks, or you notice leaking in your underwear. Bright red blood in your underwear. Abdominal (lower belly) or stomach pain. For first baby: Contractions (tightening) less than 5 minutes apart for one hour or more. Second (plus) baby: Contractions (tightening) less than 10 minutes apart and getting stronger. *If less than 34 weeks: Contractions (tightenings) more than 6 times in one hour. Increase or change in vaginal discharge (note the color and amount) Other: Eat green leafy veggies and take oral iron or vitamins Follow-up: Scheduled induction here 01/13.. call here before coming [phone] to be sure we are ready for you documented in this encounter Medications at Time of Discharge Medication Sig Dispensed Refills Start Date End Date Vit-Fe Take 1 tablet by 90 tablet 3 06/04/2020 Fumarate-FA ( mouth daily MULTIVITAMIN W/IRON) 27-0.8 MG tablet levETIRAcetam (KEPPRA) Take 1 tab twice a 90 tablet 3 06/0402/24/2021 500 MG tabletIndications: day for 1 week and Convulsions, unspecified then 1 1/2 tabs convulsion type (H) twice a day metoprolol succinate ER Take 1 tablet (25 90 tablet 2 11/2101/22/2021 (TOPROL-XL) 25 MG 24 hr mg) by mouth daily tabletIndications: Anxiety, Palpitations omeprazole (PRILOSEC) 40 Take 1 capsule (40 90 capsule 3 03/03/[address] capsuleIndications: mg) by mouth daily Epigastric pain sertraline (ZOLOFT) 100 TAKE ONE AND 135 tablet 0 10/07/2020 02/05/2021 MG tabletIndications: ONE-HALF TABLETS BY Anxiety MOUTH EVERY DAY documented as of this encounter Miscellaneous Notes Plan of Care - Jose Bai RN - 01/11/2021 4:40 PM CDT Data: Patient assessed in the Birthplace for leaking vaginal fluid. Cervical exam 1+ and effaced 30-50%. Membranes intact. Contractions/uterine assessment negative/normal. Action: Presumed adequate oxygenation documented (see flow record). Discharge instructions reviewed. Patient instructed to report change in movement, vaginal leaking of fluid or bleeding, abdominal pain, or any concerns related to the to her nurse/physician. Response: Orders to discharge home per Minnie Aiken. Patient verbalized understanding of education and verbalized agreement with plan. Discharged to home at 1650. Plan of Care - Jose Bai RN - 01/11/2021 4:[address] Minnie Aiken informed of patient arrival and assessment including the following: Reason for maternal/ assessment leaking vaginal fluid. Pt reports see nonte. status normal baseline, moderate variability, accelerations present and no decelerations. Plan per provider/orders received for discharge. Plan of Care - Jose Bai RN - 01/11/2021 4:11 PM CDT VE unchanged since last clinic visit. Per pt Dr Marcial said 2 cm- cervix is -2 to -3- this nurse could not get 2 fingers inserted so essentially unchanged/1+/40-50/-3. No leaking fluid noted but largeamount of mucous on spec exam , pt denies any itching, odor or intercourse Plan of Care - Jose Bai RN - 01/11/2021 4:06 PM CDT Data: Patient presented to Birthplace: 01/11/2021 3:14 PM. Reason for maternal/ assessment is leaking vaginal fluid, and fatigue. Patient reports feeling very tired the last few days and wanted to get hgb checked. Then after she called Dr aiken she felt something leak and run down her leg, denies intercourse and hasn't had any leaking since 1430. Patient is a . record reviewed. has been complicated by SVT, hx of seizures, depression/anxiety. Gestational Age 36w5d. VSS. movement active. Patient denies vaginal bleeding, abdominal pain, pelvic pressure, nausea, vomiting, headache, visual disturbances, epigastric or URQ pain, significantedema. Support person is present. Mom lisa Action: Verbal consent for EFM. Triage assessment completed. Bill of rights reviewed. Response: Patient verbalized agreement with plan. Will contact Dr Minnie Aiken with update and for further orders. documented in this encounter Plan of Treatment Upcoming Encounters Date Type Specialty Care Team Description 04/28/2022 Office Visit [facility] Anthony Doe PA-C [address] [place], [place] [phone] (Wo rk) 05/03/2022 Office Visit Dermatology Neil Kent M D [address] [place] [address] (Wo rk) 05/05/2022 Office Visit Optometry Yeny David, OD [address] [address] [place], [place] [phone] (Wo rk) 05/11/2022 Virtual Visit Pharm D Diana Desir , [facility] [address] [place], [place] [phone] (Wo rk) 05/14/2022 Office Visit Cardiology Livan Sharif MD [address] [facility] [address] [place], [place] [phone] (Wo rk) 05/31/2022 Office Visit Family Practice Valery Veronica PA-C [address] [place], [place] [address] (Wo rk) documented as of this encounter Procedures Procedure Name Priority Date/Time Associated Diagnosis Comme nts CBC WITH PLATELETS STAT 01/11/2021 3:30 PM Res ults for this CDT procedure are i n the results section. RUPTURE OF STAT 01/11/2021 3:25 PM Resul ts for this MEMBRANES BY ROM CDT procedure a re in PLUS the results section. FERN TEST FOR STAT 01/11/2021 3:25 PM Results for this RUPTURE OF CDT procedure are i n MEMBRANES the results section. GROUP B STREP PCR Routine 07/14/2020 Results fo r this procedure are i n the results section. RUBELLA ANTIBODY Routine 06/12/2020 Results for this IGG procedure are i n the results section. TREPONEMA ABS W Routine 06/12/2020 Results for this REFLEX TO RPR AND procedure are in TITER the results section. documented in this encounter Results (ABNORMAL) CBC with platelets (01/11/2021 3:30 PM CDT) Analysis Performed At Patho logist Time Signature WBC 10.1 4.0 - 11.0 01/11/2021 [facility] 10e9/L 3:46 PM [facility] RBC Count 3.92 3.8 - 5.2 01/11/2021 [facility] 10e12/L 3:46 PM [facility] Hemoglobin 9.9 (L) 11.7 - 01/11/2021 [facility] 15.7 g/dL 3:46 PM [facility] Hematocrit 32.4 (L) 35.0 - 01/11/2021 [facility] 47.0 % 3:46 PM [facility] MCV 83 78 - 100 01/11/2021 [facility] fl 3:46 PM [facility] MCH 25.3 (L) 26.5 - 01/11/2021 [facility] 33.0 pg 3:46 PM [facility] MCHC 30.6 (L) 31.5 - 01/11/2021 [facility] 36.5 g/dL 3:46 PM [facility] RDW 13.7 10.0 - 01/11/2021 [facility] 15.0 % 3:46 PM [facility] Platelet Count 220 150 - 450 01/11/2021 [facility] 10e9/L 3:46 PM [facility] Specimen Anatomical Collection Method Collection Time Receive d Time (Source) Location / / Volume Laterality Blood 01/11/2021 3:30 PM 3:31 CDT PM CDT Minnie Aiken MD LAB - BLOOD ORDERABLES Performing Organization Address City/State/ZIP Code Phon e Number [facility] [address] [place], [place] [address] [phone] [facility] [address] [phone] Fern and nitrazine test (01/11/2021 3:25 PM CDT) Patholo gist Method Time Signature Fern No Ferning 01/11/2021 [facility] Crystallization Present 4:07 PM CDT [facility] Specimen Anatomical Collection Method Collection Time Receive d Time (Source) Location / / Volume Laterality Amniotic fluid 01/11/2021 3:25 PM 021 3:43 CDT PM CDT Minnie Aiken MD LAB - BODY FLUIDS ORDERABLES Performing Organization Address [facility]/ZIP [facility] Phon e Number [facility] [address] [place], [place] [address] [facility] [address] [place], [place] [address], [facility] [phone] Rupture of Membranes by ROM Plus (01/11/2021 3:25 PM CDT) athologist Signature Rupture of Negative NEG^Negati 01/11/2021 [place] 4:09 PM CDT [facility] Comment: It is recommended that the tests to dete ct rupture of the amniotic membranes should not be used without other clinica l assessments to make clinical patient management decision. Specimen Anatomical Collection Method Collection Time Receive d Time (Source) Location / / Volume Laterality Amniotic fluid 01/11/2021 3:25 PM 021 3:43 specimen CDT PM CDT (specimen) Minnie Aiken MD LAB - BODY FLUIDS ORDERABLES Performing Organization Address City/[facility]/ZIP Code Phon e Number [facility] [address] [place], [place] [address] [place] [address] [address] [place], [place] [address], [facility] [phone] Group B strep PCR (07/14/2020) athologist Signature Group B Strep positive PCR Patient Reported LAB - MICRO GENERAL ORDERABL ES Rubella Antibody IgG Quantitative (06/12/2020) [facility] Method Time Signature Rubella GENESIS NON immune IgG Specimen (Source) Anatomical Location Collection Method / Collectio n Time Received Time / Laterality Volume Blood Patient Reported LAB - BLOOD ORDERABLES Treponema Abs w Reflex to RPR and Titer (06/12/2020) Patholo gist Method Time Signature Treponema nonreactive Antibodies Specimen (Source) Anatomical Location Collection Method / Collectio n Time Received Time / Laterality Volume Blood Patient Reported LAB - BLOOD ORDERABLES documented in this encounter Visit Diagnoses Diagnosis Encounter for triage in patient - Primary Encounter for triage in patient documented in this encounter Admitting Diagnoses Diagnosis Encounter for triage in patient documented in this encounter Additional Health Concerns Assessment Noted Time PHQ-9 Depression Total Score: 6 09/29/2020 3:25 PM CDT documented as of this encounter Care Teams Welding Rod Coater Relationship Specialty Start Date End Date Marija Edgar APRN PCP - General Nurse Practitioner 04/30/20 PAPER DELIVERER [address] [place] [address] Lita Oseguera Personal Advocate & 02/28/20 Liaison (PAL) Chanelle Mccann Assigned OBGYN Provider 05/02/20 05/09/21 [place] [address] [address] [address] [place], [place] [address] Kyara De La Fuente, VJ Specialty Care Neurology 06/04/20 03/05/21 Coordinator Marija Edgar APRN Assigned PCP 06/08/20 PAPER DELIVERER [address] [place] [address] Mynor Broussard MD Assigned Surgical 06/01/20 11/28/21 [address] Provider [address] [place] [address] Mauri, Melody Neuroscience 06/04/20 MD Keisha Provider [address] [place], [place] [address] Galo Burrell MD Assigned Heart and 10/05/20 04/02/22 [address] Vascular Provider [address] [id number] documented as of this encounter
--- OUTSIDE RECORDS SUMMARY | 2022-04-28 01:15 | XMS_ITS | Encounter Summary ---
:2000 Author Organization [facility] Address [address] [place] [address] Care Team Providers Name Role Phone Lita Oseguera Unavailable Unavailable Marija Edgar APRN GAS DISTRIBUTION PLANT OPERATOR Primary Care Provider [phone] Chanelle Mccann APRN CNM Unavailable + Kyara De La Fuente RN Unavailable Marija Edgar APRN GAS DISTRIBUTION PLANT OPERATOR Unavailable Mynor Broussard MD Unavailable Keisha Dotson MD Unavailable Galo Burrell MD Unavailable Encounter Details Date Type Department Care Team Description 02/12/2021 Virtual Visit [facility] Mauri, Seizures (H) (Primary [address] Valdes MD Dx) [place], [address] [place] [id number] Social History Tobacco Use Types Packs/Day Years [...] How often do you attend jainism or mu-ism services? Never 09/22/2021 Do you belong to any clubs or organizations such as No 09/22/2021 jainism groups, unions, fraternal or athletic groups, or [...] documented as of this encounter Progress Notes Yfn Peck MA - 02/12/2021 11:30 AM CDT I call patient to do the the rooming but no answer , and no VM. Yfn Peck CMA documented in this encounter Plan of Treatment Upcoming Encounters Date Type Specialty Care Team Description 04/28/2022 Office Visit Family Practice Anthony Doe PA-C [address] [place] [address] (Wo rk) 05/03/2022 Office Visit Dermatology Neil Kent M D [address] [place] [address] (Wo rk) 05/05/2022 Office Visit Optometry Yeny aDvid, OD [address] [facility] [address] [address] [place], [place] [phone] (Wo rk) 05/11/2022 Virtual Visit Pharm D Diana Desir , [facility] [address] [place], [place] [address] (Wo rk) 05/14/2022 Office Visit Cardiology Livan Sharif MD [address] [facility] [address] [place], [place] [address] (Wo rk) 05/31/2022 Office Visit Family Practice Valery Veronica PA-C [address] [place], [place] [address] (Wo rk) documented as of this encounter Visit Diagnoses Diagnosis Seizures (H) - Primary Other convulsions documented in this encounter Additional Health Concerns Assessment Noted Time PHQ-9 Depression Total Score: 6 09/29/2020 3:25 PM CDT documented as of this encounter Care Teams Plant Protection Officer Relationship Specialty Start Date End Date Marija Edgar APRN PCP - General Nurse Practitioner 04/30/20 GAS DISTRIBUTION PLANT OPERATOR [address] [place] [address] Lita Oseguera Personal Advocate & 02/28/20 Liaison (PAL) Chanelle Mccann Assigned OBGYN Provider 05/02/20 05/09/21 [place] [address] [address] [facility] [address] [place], [place] [address] Kyara De La Fuente, RN Specialty Care Neurology 06/04/20 03/05/21 Coordinator Marija Edgar APRN Assigned PCP 06/08/20 GAS DISTRIBUTION PLANT OPERATOR [address] [place], [place] [phone] Mynor Broussard MD Assigned Surgical 06/01/20 11/28/21 [address] Provider [address] [place] [address] Mauri, Melody Neuroscience 06/04/20 MD Keisha Provider [address] [place], [place] [address] Galo Burrell MD Assigned Heart and 10/05/20 04/02/22 [address] Vascular Provider [address] [place] [address] documented as of this encounter
--- OUTSIDE RECORDS SUMMARY | 2022-04-28 01:15 | XMS_ITS | Encounter Summary ---
:2000 Author Organization [facility] Address [address] [place] [address] Care Team Providers Name Role Phone Lita Oseguera Unavailable Unavailable Marija Edgar APRN CALL OUT CLERK Primary Care Provider [phone] Chanelle Mccann VOCATIONAL INSTRUCTOR CNM Unavailable + Kyara De La Fuente RN Unavailable Marija Edgar APRN CALL OUT CLERK Unavailable Mynor Broussard MD Unavailable Keisha Dotson MD Unavailable Galo Burrell MD Unavailable Reason for Visit Reason Comments Induction Of Labor Auth/Cert Specialty Diagnoses / Procedures Referred By Contact Refer red To Contact etl consultant Diagnoses Term Term Rh Labor And Delivery [address] [place], [place] [address] Phone: Fax: Referral ID Status Reason Start Date Expiration Date Visits Requ ested Visits Authorized [id number] 1 1 Encounter Details Date Type Department Care Team Description 01/13/2021 - Hospital Encounter [facility] Cindy Archuleta MD 01/15/2021 [facility] [address] [place], [place] [phone] [place] [address] [phone] Social History Tobacco Use Types Packs/Day Years [...] often do you attend latter day or roman catholic services? Never 09/22/2021 Do you belong to [...] Sign Reading Time Taken Comments Blood Pressure 127/65 01/15/2021 10:47 AM CDT Pulse 76 01/15/2021 10:47 AM CDT Temperature 36.6 ??C (97.9 ??F) 01/15/2021 8:29 AM CDT Respiratory Rate 16 01/15/2021 8:29 AM CDT Oxygen Saturation 96% 01/14/2021 8:05 AM CDT Inhaled Oxygen Concentration - - Weight - - Height - - Body Mass Index - - documented in this encounter Discharge Instructions Discharge Brea Nix RN - 01/15/2021 11:18 AM CDT Vaginal Delivery Instructions Follow up with OB in 2 weeks and neuro. Activity ?? Ask family and friends for help when you need it. ?? Do not place anything in your vagina for 6 weeks. ?? You are not restricted on other activities, but take it easy for a few weeks to allow your body to recover from delivery. You are able to do any activities you feel up to that point. ?? No driving until you have stopped taking your pain medications (usually two weeks after delivery). Call your health care provider if you have any of these symptoms: ?? Increased pain, swelling, redness, or fluid around your stiches from an episiotomy or perineal tear. ?? A fever above 100.4 F (38 C) with or without chills when placing a thermometer under your tongue. ?? You soak a sanitary pad with blood within 1 hour, or you see blood clots larger than a golf ball. ?? Bleeding that lasts more than 6 weeks. ?? Vaginal discharge that smells bad. ?? Severe pain, cramping or tenderness in your lower belly area. ?? A need to urinate more frequently (use the toilet more often), more urgently (use the toilet veryquickly), or it woody when you urinate. ?? Nausea and vomiting. ?? Redness, swelling or pain around a vein in your leg. ?? Problems or a red or painful area on your breast. ?? Chest pain and cough or are gasping for air. ?? Problems coping with sadness, anxiety, or depression. If you have any concerns about hurting yourself or the baby, call your provider immediately. ?? You have questions or concerns after you return home. Keep your hands clean: Always wash your hands before touching your perineal area and stitches. This helps reduce your risk of infection. If your hands aren't dirty, you may use an alcohol hand-rub to clean your hands. Keep your nails clean and short. documented in this encounter Medications at Time [...] documented as of this encounter Progress Notes Saurabh Marcial MD - 01/15/2021 8:10 AM CDT PPD 2 VSS Afeb Feeling well FF,NT,Lochia wnl Ext- NT Imp- Improved with no episodes SVT Plan- discharge home on metoprolol and Keppra F/u 2 weeks OB and with Neurology Cindy Archuleta MD - 01/14/2021 5:19 PM CDT Doing well. vss afeb Fundus firm and non tender Extremities nl hgb 9.5 A: PPD 1 S/P Doing well P: Routine pp care Discharge tomorrow documented in this encounter H&P Notes Cindy Archuleta MD - 01/13/2021 1:22 PM CDT There has been no significant change in Kim's general health status based up review of the nursingdatabase, records and exam. Kim is a 20 year old IUP at 37 wks who is being admitted for induction. She has h/o SVT requiring Metoprolol. Due to worsening and increase in episodes of SVT she has been advised to undergo early induction. She understands the risks of Early delivery at 37 weeks. Kim also is taking Keppra for seizure disorder. Sees a neurologst. GBS positive RH negative Rubella nonimmune Received Tdap Category 1 tracing EFW= 7 lbs Cx= 3cm/70%/-2 AROM clear fluid A: 20 yo IUP 37 wks here for induction for increase in frequency of SVT episodes P: Pitocin as needed Anticipate Will monitor HR Continue Metopropol documented in this encounter Consult Notes Natasha Ivey LSW - 01/15/2021 9:46 AM CDTAssociated Order(s): CARE MANAGEMENT / SOCIAL WORK IP CONSULT D) SWS responding to automatic referral I) SWS met with Kim MOB. FOB not involved. Kim lives with her mother and step- father in [place]. This is her first child and she is prepared for baby at home and are on WIC. SWS discussed baby blues/ depression and gave information on this. SWS also gave Parent Resource Guide with SWS contact information. A) Kim is A&O with good affect and eye contact. She is bonding well with baby. She reports that she has a good support network, parents and older siblings are involved and supportive. She reportsthat she she has struggled with anxiety since her early teens. She has been taking medications for it since she was 15 years old and she feels it is well managed. She took her medication through her . She also has a counselor/theapist that she sees regularly. P) No further d/c needs at this time. SWS available upon request. ALLY [employer] [facility] Inpatient Care Coordination Rn Pool Sports Betting Manager [facility] [phone] documented in this encounter Miscellaneous Notes Plan of Care - Brea Barnes RN - 01/15/2021 11:12 AM CDT Data: Vital signs within normal limits. checks within normal limits - see flow record. Patient eating and drinking normally. Patient able to empty bladder independently and is up ambulating.No apparent signs of infection. Perineal laceration healing well. Patient performing self cares and is able to care for infant. Action: Patient medicated during the shift for pain. See MAR. Patient reassessed within 1 hour aftereach medication and pain was improved - patient stated she was comfortable. Patient education done about See flow record. Response: Positive attachment behaviors observed with . Support persons not present. Patients mom will collect patient and baby on discharge.SWS consult ordered. EPDS score 5. Breast pump given for home, Plan: Anticipate discharge today, seen by DR Marcial, MMR ordered and administered, will follow up in 2 weeks with OB and Neurology. All discharge teaching completed and forms signed. All questions answered, patient a little anxious about going home but lives with her mom who is supportive and helpful. Verbalizes understanding of all follow up instructions for herself and baby. Patients mom will pickher up, and patient ready for discharge once she arrives. Note - Jaida Serrano RN - 01/15/2021 8:30 AM CDT This note was copied from a baby's chart. visit. This is Kim's first infant, she reports nursing going well so far but her nipplesare sore. She has mother's love and hydrogels at bedside. Physical Optics Teacher assisted with latching infant on R breast without nipple shield. noted to curl lower lip under, demonstrated to Kim how to pulllower lip out, Kim states latch is more comfortable but still sore. Active suck/swallow pattern noted, encouraged breast compressions throughout feeding. Her nipples are slightly reddened, no cracking/damage otherwise visible. She has used a shield to assist with soreness, discussed use and weaning off. Kim states her sister breastfed for 2 years and sites her as a resource to assist with breastfe eding when discharged. Physical Optics Teacher also discussed our discharge resources. Encouraged Kim to call out with any additional questions today prior to discharge. Plan of Care - Yolanda Sow RN - 01/15/2021 6:43 AM CDT VSS. Breast feeding tolerating well, utilizing nipple shield. Mothers love and hydrogel given. Scantlochia no clots noted.Ibuprofen and Tylenol available for pain control. Bowel sounds active x4. Tolerating PO. Voiding. Denies nausea and vomiting. Bonding well with . Attentive to cares. Continue with plan of care. Plan of Care - Lexii Panchal RN - 01/14/2021 6:06 PM CDT Stable patient meeting expected goals. HR WNL. Pain being managed with ibuprofen. Using lanolin for comfort. Rhogam given. . Cares continued from [id number]. VSS and continuous pulse oximeter discontinued per Dr. Archuleta. Patientanxious regarding and having a difficult time resting when sleeping, reassurance andeducation provided. Provider Notification - Lexii Panchal RN - 01/14/2021 5:05 PM CDT 01/14/21 1705 Provider Notification Provider Name/Title Dr. Archuleta Method of Notification In Department MD updated: HR has been WNL today and patient reports feeling well. Okay to discontinue continuous pulse oximeter monitoring. Plan of Care - Libra Randall RN - 01/14/2021 1:50 AM CDT Pain goal achieved with ibuprofen. Up ad mary without difficulty. VSS. Fundus firm with scant rubra. Moderate assistance needed with nursing. Patient's mother at the bedside and supportive. Frequent reassurance needed. Plan of Care - Clarice Myles RN - 01/13/2021 8:59 PM CDT Assumed care [id number]. VSS. Pain well controlled. Fundal checks and bleeding WNL. Voiding without difficulty, frequent voiding encouraged. She needs assistance with latching . Patient's mother is at bedside and supportive. Plan of Care - Elizabeth Rivera RN - 01/13/2021 7:03 PM CDT Data: Kim Clark transferred to 443 via wheelchair at 1855. Baby transferred via parent's arms. Action: Receiving unit notified of transfer: Yes. Patient and family notified of room change. Reportgiven to VJ Oneil at 1910. Belongings sent to receiving unit. Accompanied by Registered Nurse. Oriented patient to surroundings. Call light within reach. ID bands double-checked with receiving RN. Response: Patient tolerated transfer and is stable. L&D Delivery Note - Saurabh Marcial MD - 01/13/2021 4:15 PM CDT Delivery Date: 01/13/2021 PROCEDURE: Spontaneous vaginal delivery. DETAILS: This patient is a 20-year-old 1, now para 1, presented to labor and delivery for scheduled induction at 37 weeks due to complicated by supraventricular tachycardia and seizure disorder. The patient has been poorly controlled with significant cardiorespiratory symptoms of SVT, and is recommended to have delivery at 37 weeks. The benefits and risks have been discussed. Risks of prematurity. The patient was admitted, had oxytocin and amniotomy received antibiotics for group Bbeta strep, had normal progress through the first and second stage of labor, receiving epidural pushing effectively delivering in a controlled fashion. The nares and oropharynx were suctioned without difficulty. Delayed cord clamping was employed. This was extremely vigorous female with Apgars of 9 and 9. Placenta was delivered spontaneously intact. The vagina revealed a small left vaginal laceration that was bleeding that was repaired with a simple ygtmoc-sy-cycib of 3-0 Vicryl. The uterus involuted well. The rectal exam had no defect. The total sponge and needle counts were correct. Blood loss by QBL was 260 mL and the mother and baby are recovering well together upon my departure. Saurabh Marcial MD MT: april Name: KIM CLARK MRN: [id number] Account: [id number] : 2000 Delivery Date: 01/13/2021 Document: [id number] L&D Delivery Note - Saurabh Marcial MD - 01/13/2021 4:10 PM CDT Provider Notification - Elizabeth Rivera RN - 01/13/2021 3:22 PM CDT 01/13/21 1522 Provider Notification Provider Name/Title Dr Marcial Method of Notification Phone Request Evaluate - Remote Notification Reason SVE updated that SVE is and feeling pressure. Orders to start pushing and call when needed. in clinic Provider Notification - Audrey Saravia RN - 01/13/2021 2:46 PM CDT 01/13/21 1440 Provider Notification Provider Name/Title Dr Marcial Method of Notification Phone Request Evaluate - Remote Notification Reason Decels;Uterine Activity;Status Update;SVE Dr Marcial updated on SVE, UC pattern on 12 mu Pitocin. FHR Cat 2 with recurrent variables. Will continue with interventions. Epidural infusing, continues to have pressure in her bottom. Plan of Care - Audrey Saravia RN - 01/13/2021 8:[address] Archuleta bedside for assessment and AROM, clear fluid noted. Order to start Pitocin after 1 hour if no increased contractions. PCN for GBS positive status. Will monitor HR with pulse ox. Notify MD if HRmaintains above 115 or if pt feels symptomatic. Provider Notification - Audrey Saravia RN - 01/13/2021 8:40 AM CDT 01/13/21 0741 Provider Notification Provider Name/Title Dr Archuleta Method of Notification At Bedside Request Evaluate in Person Notification Reason Patient Arrived;Membrane Status;Uterine Activity;Status Update;SVE Data: Patient presented to [facility]: 01/13/2021 7:24 AM. Reason for maternal/ assessment is induction of labor for SVT. Patient reports occasional contractions at home. Patient is a . Prenatalrecord reviewed. has been complicated by SVT, GBS positive status, history of seizure . Gestational Age 37w0d. VSS. movement active. Patient denies leaking of vaginal fluid/rupture of membranes, vaginal bleeding, abdominal pain, pelvic pressure, nausea, vomiting, headache, visual disturbances, epigastric or URQ pain, significant edema. Support person is present. Action: Verbal consent for EFM. Triage assessment completed. Bill of rights reviewed. Response: Patient verbalized agreement with plan. Will contact Dr Cindy Archuleta with update and for further orders. documented in this encounter Plan of Treatment Upcoming Encounters Date Type Specialty Care Team Description 04/28/2022 Office Visit [facility] Anthony Doe, PAUcheC [address] [place], [place] [phone] (Wo rk) 05/03/2022 Office Visit Dermatology Neil Kent M D [address] [place] [address] (Wo rk) 05/05/2022 Office Visit Optometry Yeny David, OD [address] [place], [place] [phone] (Wo rk) 05/11/2022 Virtual Visit Pharm D Diana Desir , [facility] [address] [place], [place] [address] (Wo rk) 05/14/2022 Office Visit Cardiology Livan Sharif MD [address] [place], [place] [address] (Wo rk) 05/31/2022 Office Visit [facility] Valery Veronica , PAUcheC [address] [place], [place] [address] (Wo rk) documented as of this encounter Procedures Procedure Name Priority Date/Time Associated Comments Diagnosis RH IMMUNE GLOBULIN Routine 01/14/2021 6:02 AM Res ults for this SCREEN CDT procedure are i n the results section. RHOGAM ORDER Routine 01/13/2021 4:11 PM Results f or this CDT procedure are i n the results section. TREPONEMA ABS W STAT 01/13/2021 9:00 AM Result s for this REFLEX TO RPR AND CDT procedure are in TITER the results section. HEMOGLOBIN STAT 01/13/2021 9:00 AM Results f or this CDT procedure are i n the results section. ABO AND RH STAT 01/13/2021 9:00 AM Results f or this CDT procedure are i n the results section. GROUP B STREP PCR Routine 07/14/2020 Results fo r this procedure are i n the results section. HIV ANTIGEN ANTIBODY Routine 06/17/2020 Results for this COMBO procedure are i n the results section. HEPATITIS B SURFACE Routine 06/17/2020 Results for this ANTIGEN procedure are i n the results section. documented in this encounter Results Rh Immune Globulin Study (01/14/2021 6:02 AM CDT) Component Value Ref Test Analysis Performed At [facility] Range Method Time Signature ABO AB 01/14/2021 [place] 8:16 AM [facility](D) Neg [facility] Blood Neg 01/14/2021 [place] Screen 8:45 AM [facility] Blood Bank Antibody screening not done due to Rhogam 01/14/2021 [facility] Comment Suitable for Rh Immunoglobulin 8:45 AM [facility] RhIg Given on 01/14/21 @ [facility] Administered 0958, NB 1:09 PM [facility] Amount of RHIG 300 micrograms Rh 01/14/2021 [place] EW Required Immune Globulin 8:45 AM [facility] Specimen Anatomical Collection Method Collection Time Receive d Time (Source) Location / / Volume Laterality 01/14/2021 6:02 AM 6:03 CDT AM CDT Cidny Archuleta MD LAB - BLOOD BANK TEST ORDER Performing Organization Address City/State/ZIP Code Phon e Number M [facility] [address] [place] [address], [place] [address] [facility] [address] [place], [place] [address] [place] [address] Rho (D) immune globulin (RhoGam) Lab Study (01/13/2021 4:11 PM CDT) [facility] Method Time Signature Rhogam Order Order 01/13/2021 [place] received 7:28 PM [facility] Comment: See Rhogam Study/Suitability Specimen Anatomical Collection Method Collection Time Receive d Time (Source) Location / / Volume Laterality 01/13/2021 4:11 PM 7:27 CDT PM CDT Saurabh Marcial MD LAB - BLOOD BANK PRODUCT ORD ER Performing Organization Address City/State/ZIP Code Phon e Number M [facility] [address] [place], [place] [address] [facility] [address], [place] [address] [facility] [phone] Treponema Abs w Reflex to RPR and Titer (01/13/2021 9:00 AM CDT) [facility] Method Time Signature Treponema Nonreactive NR^Nonrea 01/13/2021 [facility] ctive 6:30 PM CDT [facility] Comment: Methodology Change: Test performed on Diarin Liaison XL by Treponema pallidum Total Antibodies Assay as of . Specimen Anatomical Collection Method Collection Time Receive d Time (Source) Location / / Volume Laterality Blood 01/13/2021 9:00 AM 9:29 CDT AM CDT Cindy Archuleta MD LAB - BLOOD ORDERABLES Performing Organization Address City/State/ZIP Code Phon e Number [facility] [address] [place] [address] [facility] (ABNORMAL) Hemoglobin (01/13/2021 9:00 AM CDT) P athologist Signature Hemoglobin 9.5 (L) 11.7 - 15.7 01/13/2021 [place] g/dL 9:36 AM CDT [facility] Specimen Anatomical Collection Method Collection Time Receive d Time (Source) Location / / Volume Laterality Blood 01/13/2021 9:00 AM 9:29 CDT AM CDT Cindy Archuleta MD LAB - BLOOD ORDERABLES Performing Organization Address City/[facility]/ZIP Code Phon e Number M [facility] [address] [place], [place] [address] [facility] [address], [place] [address], [facility] [phone] ABO and Rh (01/13/2021 9:00 AM CDT) Analysis Performed At Patho logist Time Signature ABO AB 01/13/2021 [place] 10:13 AM CDT [facility] RH(D) Neg [facility] Specimen 01/16/2021 01/13/2021 [place] Expires 10:20 AM CDT [facility] Specimen Anatomical Collection Method Collection Time Receive d Time (Source) Location / / Volume Laterality Blood 01/13/2021 9:00 AM 9:30 CDT AM CDT Cindy Archuleta MD LAB - BLOOD BANK TEST ORDER Performing Organization Address City/State/ZIP Code Phon e Number M [facility] [address] [place], [place] [address] [facility] [address] [place], [place] [address] [facility] [phone] Group B strep PCR (07/14/2020) athologist Signature Group B Strep positive PCR Patient Reported LAB - MICRO GENERAL ORDERABL ES HIV Antigen Antibody Combo (06/17/2020) athologist Signature HIV Antigen negative Antibody Combo Specimen (Source) Anatomical Location Collection Method / Collectio n Time Received Time / Laterality Volume Blood Patient Reported LAB - BLOOD ORDERABLES Hepatitis B surface antigen (06/17/2020) athologist Signature Hep B Surface negative Agn Specimen (Source) Anatomical Location Collection Method / Collectio n Time Received Time / Laterality Volume Blood Patient Reported LAB - BLOOD ORDERABLES documented in this encounter Visit Diagnoses Diagnosis Term documented in this encounter Admitting Diagnoses Diagnosis Term documented in this encounter Administered Medications Inactive Administered Medications - up to 3 most recent administrations Medication Order MAR Action Action Date Dose Rate Site acetaminophen (TYLENOL) tablet 650 mg 650 mg, Oral, EVERY 4 HOURS PRN, mild pa in, fever, greater than or equal to 38?? C /100.4?? F (oral) or 38.5?? C/ 101.4?? F (core)., Starting on Tue01/13/21 at 1610, Maximum acetaminophen dose from all sources = 75 mg/kg /day not to exceed 4 grams/day. bisacodyl (DULCOLAX) Suppository 10 mg 10 mg, Rectal, DAILY PRN, constipation, Starting on Tue01/15/21 at 0000, Hold for loose stools. Blood Bank will determine if patient is eligible for and the proper dosage of Rho (D) immune globulin (RhoGam) CONTINUOUS PRN, Starting on Tue01/13/21 at 1610, Until Noa 01/15/21 at 1805, Blood Bank will determine if patient is eligible for and the proper dosage of Rho (D) immune globulin (RhoGam) based on laboratory results a nd will enter appropriate dosing order. If appropriate dose is greater than the standard dose (300 mcg), provider will be notified. fentaNYL (SUBLIMAZE) 2 mcg/mL, New Syringe/Cartridge 01/13/2021 1:48 PM CDT bupivacaine (MARCAINE) 0.125% in NS premix for PCEA PCEA dose (mL): 5, PCEA Lockout Interval (min): 15 minutes, Hour Limit (mL): 20, Continuous Rate (Basal Rate) (mL/hr): 10, Absolutely no anticoagulants, thrombolytics or antiplatelet medications or other opioid analgesics or other sedatives without prior notification of anesthesiology. For CADD cassettes, pharmacy to send epidural tubing set., Routine hydrocortisone 2.5 % cream Rectal, 3 TIMES DAILY PRN, hemorrhoids, Starting on Tue01/13/21 at 1610, Apply to hemorrhoids. Send only if nurse requests. ibuprofen (ADVIL/MOTRIN) tablet 800 mg Given 01/13/2021 4:47 PM CDT 800 mg 800 mg, Oral, ONCE PRN, moderate pain, mild-moderate pain, Starting on Tue01/13/21 at 0817, For 1 dose, Available for administration after delivery. May give with acetaminophen. Give with food. ibuprofen (ADVIL/MOTRIN) tablet 800 mg Given 01/15/2021 2:52 PM CDT 800 mg 800 mg, Oral, EVERY 6 HOURS PRN, other, cramping, Starting on Tue01/13/21 at 2300, Start 6 hours after ketorolac is completed (if ordered). Max dose: 3200 mg/day Give with food. Given 01/14/2021 11:08 PM CDT 800 mg Given 01/14/2021 4:00 PM CDT 800 mg lactated ringers BOLUS 1,000 mL Rate/Dose Change 01/13/2021 1:21 PM CDT Intravenous, 1,000 mL, ONCE PRN, IF patient to have epidural or intrathecal narcotics and NOT pre-eclamptic, Starting on Tue01/13/21 at 0817, For 1 dose, IV bolus must be initiated 15-30 min prior to epidural or intrathecal, then IV fluids per labor orders. Nurse may discontinue this order if duplicate. lactated ringers BOLUS 1,000 mL Intravenous, 1,000 mL, ONCE PRN, post- hemorrhag e (PPH), Starting on Tue01/13/21 at 1610, For 1 dose, Rate: 500-1000 mL/hr. lactated ringers infusion New Bag 01/13/2021 9:07 AM CDT 125 mL/hr at 125 mL/hr, Intravenous, CONTINUOUS, Starting on Tue01/13/21 at 0830, Until Tue01/13/21 at 1906 lanolin cream Topical, EVERY 1 HOUR PRN, dry skin, sor e nipples, Starting on Tue01/13/21 at 1610, Apply to sore nipples. levETIRAcetam (KEPPRA) tablet 500 mg Given 01/14/2021 10:15 PM CDT 500 mg 500 mg, Oral, EVERY EVENING, First dose on Tue01/13/21 at 2000 Given 01/13/2021 10:12 PM CDT 500 mg metoprolol succinate ER (TOPROL-XL) 24 hr Given 01/15/2021 8:24 AM CDT 25 mg tablet 25 mg 25 mg, Oral, DAILY, First dose on Tue01/13/21 at 1000, DO NOT CRUSH. Tablet may be split in half along score line. Given 01/14/2021 9:03 AM CDT 25 mg Given 01/13/2021 9:45 AM CDT 25 mg naloxone (NARCAN) injection 0.2 mg 0.2 mg, Intravenous, EVERY 2 MIN PRN, op ioid reversal, Starting on Tue01/13/21 at 0754, Administer intravenous route when available and notify [...] not improved after 4 nalox one doses. For ordered IV doses 0.1-2mg give IVP. Give each 0.4mg over 15 seconds in emergency situations. For non-emergent situations further dilu te in 9mL of NS to facilitate titration of response. naloxone (NARCAN) injection 0.2 mg 0.2 mg, Intramuscular, EVERY 2 MIN PRN, opioid reversal, Starting on Tue01/13/21 at 0754, Administer intramuscular if an int ravenous route [...] have not improved after 4 naloxone doses. For ordered IV doses 0.1-2mg give IVP. Give each 0.4mg over 15 seconds in emergency situations. For non -emergent situations further dilute in 9mL of NS to facilitate titration of response. naloxone (NARCAN) injection 0.4 mg 0.4 mg, Intravenous, EVERY 2 MIN PRN, op ioid reversal, Starting on Tue01/13/21 at 0754, Administer intravenous route when available and notify [...] not improved after 4 nalox one doses. For ordered IV doses 0.1-2mg give IVP. Give each 0.4mg over 15 seconds in emergency situations. For non-emergent situations further dilu te in 9mL of NS to facilitate titration of response. naloxone (NARCAN) injection 0.4 mg 0.4 mg, Intramuscular, EVERY 2 MIN PRN, opioid reversal, Starting on Tue01/13/21 at 0754, Administer intramuscular if an int ravenous route [...] have not improved after 4 naloxone doses. For ordered IV doses 0.1-2mg give IVP. Give each 0.4mg over 15 seconds in emergency situations. For non -emergent situations further dilute in 9mL of NS to facilitate titration of response. No MMR Needed - Assessment: Patient does not need MMR vaccine CONTINUOUS PRN, Starting on Tue01/13/21 at 1611, Until Noa 01/15/21 at 1805, Assessment: Patient does not need MMR immunization No Tdap Needed - Assessment: Patient martin s not need Tdap vaccine CONTINUOUS PRN, Starting on Tue01/13/21 at 1611, Until Noa 01/15/21 at 1805, Assessment: Patient does not need Tdap immunization omeprazole (priLOSEC) CR capsule 40 mg Given 01/14/2021 10:15 PM CDT 40 mg 40 mg, Oral, AT BEDTIME, First dose on Tue01/13/21 at 2330 Given 01/13/2021 11:38 PM CDT 40 mg oxytocin (PITOCIN) 30 units Rate/Dose Change 01/13/2021 4:03 PM 340 mL/hr 340 mL/hr in 500 mL 0.9% NaCl CDT infusion 100-340 mL/hr, Intravenous, CONTINUOUS PRN, after delivery to treat or prevent uterine atony, Starting on Tue01/13/21 at 0817, Administer 340 mL/hr over 30 minutes for a total of 170 mL then decrease to 100 mL/hr until infusion complete (about 3.5 hours) or per provider direction. Start new bag at delivery. Discontinue or saline lock peripheral IV per nurse discretion. oxytocin (PITOCIN) 30 Rate/Dose Change 01/13/2021 12:00 12 jenny-un its/min 12 mL/hr units in 500 mL 0.9% PM CDT NaCl infusion 1-24 jenny-units/min (1-24 mL/hr), Intravenous, CONTINUOUS, Starting on Tue01/13/21 at 0830, Start infusion at 2 jenny-units/min. Increase by 1-2 jenny-units/min every 30 minutes as clinically indicated until contractions are 2-3 minutes apart, lasting 45 to 60 seconds in duration to achieve labor progress. Max rate is 24 milliunits/min. Do NOT go higher without a provider order. If oxytocin (PITOCIN) infusion is discontinued and off for less than 30 minutes, restart infusion at half of previous oxytocin (PITOCIN) rate. If oxytocin (PITOCIN) infusion has been discontinued equal to or greater than 30 minutes, begin at initial dose. IF another cervical ripening medication is ordered wait 60 minutes after oxytocin (PITOCIN) infusion is stopped before administering cervical ripening medication. Rate/Dose Change 01/13/2021 11:30 AM CDT 10 jenny-units/min 10 mL/h r Rate/Dose Change 01/13/2021 10:30 AM CDT 8 jenny-units/min 8 mL/hr oxytocin (PITOCIN) 30 Rate/Dose Change 01/13/2021 5:15 PM 100 mL/hr 100 mL/hr units in 500 mL 0.9% NaCl CDT infusion 100 mL/hr, Intravenous, CONTINUOUS, Starting on Tue01/13/21 at 1630, At 100 mL/hr to follow after initial oxytocin loading dose (340 mL/hr). Continue until infusion complete (about 3.5 hours) or per provider discretion. Begin after delivery of placenta; IV to continue until patient stable. Discontinue or saline lock per nurse discretion. oxytocin (PITOCIN) 30 units in 500 mL 0. 9% NaCl infusion 340 mL/hr, Intravenous, CONTINUOUS PRN, for hemorrhage (PPH) UNTIL bleeding subsided, Starting on Tue 1 at 1610, When bleeding subsides decrease rate to 100 mL/hr. Notify provider immediately when in fusion begun. Oxytocin is first line medication for PPH. oxytocin (PITOCIN) injection 10 Units 10 Units, Intramuscular, ONCE PRN, postp artum hemorrhage (PPH) IF no IV access is available, Starting on Tue01/13/21 at 1610, For 1 dose, Oxytocin is first line medication for PPH. penicillin G potassium 5 million New Bag 01/13/2021 9:06 AM CD T 5 Million Units units vial to attach to NS 100 mL bag STAT, 5 Million Units, Intravenous, ONCE, On Tue01/13/21 at 0830, For 1 dose, Loading Dose. Active upon active labor status., Indications: Group B Strep penicillin G potassium New Bag 01/13/2021 12:50 PM CDT 2.5 Million Units intermittent infusion 2.5 Million Units Routine, 2.5 Million Units, Intravenous, EVERY 4 HOURS, First dose on Tue01/13/21 at 1230, To be given until delivery., Indications: Group B Strep multivitamin w/iron per tablet 1 Given 2020 10:15 PM CDT 1 tablet tablet 1 tablet, Oral, AT BEDTIME, First dose on Tue01/13/21 at 2330 Given 01/13/2021 11:38 PM CDT 1 tablet rho(D) immune globulin (RHOGAM) Given 01/14/2021 9:58 AM CDT 300 mcg Left Deltoid injection 300 mcg 300 mcg, Intramuscular, ONCE, On Tue01/14/21 at 0900, For 1 dose, This order was placed by Blood Bank based on Laboratory testing and a provider order. senna-docusate (SENOKOT-S/PERICOLACE) Given 01/14/2021 10:15 PM CDT 1 tablet 8.6-50 MG per tablet 1 tablet 1 tablet, Oral, 2 TIMES DAILY, First dose on Tue01/13/21 at 2100, If no bowel movement in 24 hours, increase to 2 tablets by mouth. Hold for loose stools. Given 01/14/2021 9:03 AM CDT 1 tablet Given 01/13/2021 10:10 PM CDT 1 tablet senna-docusate (SENOKOT-S/PERICOLACE) Given 01/15/2021 8:24 AM C DT 2 tablets 8.6-50 MG per tablet 2 tablet 2 tablet, Oral, 2 TIMES DAILY, First dose on Tue01/13/21 at 2100, Hold for loose stools. sertraline (ZOLOFT) tablet 150 mg Given 01/14/2021 10:14 PM CDT 150 mg 150 mg, Oral, AT BEDTIME, First dose on Tue01/13/21 at 2200, Toxic effects may be increased with concurrent administration of NSAIDs (Ibuprofen/Ketoprofen) and Selective Serotonin Reuptake Inhibitors (Sertraline). The risk of upper GI bleeding may be increased. Patients taking both drugs concurrently should be educated about the signs and symptoms of GI bleeding. Given 01/13/2021 10:10 PM CDT 150 mg sodium phosphate (FLEET ENEMA) 1 enema 1 enema, Rectal, DAILY PRN, constipation , Starting on Noa 01/15/21 at 0000, Use if bisacodyl not effective Hold for loose s tools unless being administered as part of a bowel prep regimen prior to a procedure. tranexamic acid 1 g in 100 mL 0.7% NaCl IV bag (premix) 1 g, Intravenous, Administer over 10 Minutes, EVERY 30 MIN PRN, Post- hemorrhage (PPH), Starting on 01/13/21 at 1610, For 2 doses, Provider consultation REQUIRED and MUST be admini stered as soon as the ONSET of bleeding AND within 3 hours of regardless of ca use of the PPH (atony OR laceration). IF bleeding continues, a 2nd dose may be ad ministered after 30 minutes. IF concern for DIC (Disseminated Intravascular Coagulat ion), obtain coagulation studies PRIOR to administration. Mix in 50 mL or 100 mL n ormal saline and infuse. Contraindications include: history of PE (Pulmonary Emboli ), DVT (Deep Vein Thrombosis) and current Subarachnoid hemorrhage and active DIC. documented in this encounter Active and Recently Administered Medications Times are shown in CDT. Scheduled Medication Order 01/13/2021 01/14/2021 01/15/2021 fentaNYL (SUBLIMAZE) 2 mcg/mL, bupivacai ne (MARCAINE) 0.125% in NS premix for PCEA (CANCELED) 1117 (Canceled Entry - Provider: Audrey Saravia RN)1348 (New Syringe/Cartridge - Provider: Audrey Saravia RN)1603 (Stopped - Provider: Elizabeth Rivera RN)2108 (Canceled Entry - Provider: Clarice Myles RN) 0635 (Canceled Entry - Provider: Libra Randall RN) PCEA dose (mL): 5, PCEA Lockout interval (min): 15 minutes, Hour Limit (mL): 20, Continuous Rate (Basal Rate) (mL/hr): 10, Absolutely no anticoagulants, thrombolytics or antiplatelet medications or othe r opioid analgesics or other sedatives w ithout prior notification of anesthesiology. For CADD cassettes, pharmacy to send epidural tubing set., Routine levETIRAcetam (KEPPRA) tablet 500 mg 2211 (Given - Pro vider: Clarice Myles RN) 2214 (Given - Provider: Yolanda Sow, VJ) 500 mg, Oral, EVERY EVENING, First dose on Tue01/13/21 at 2000 metoprolol succinate ER (TOPROL-XL) 24 hr tablet 25 mg 944 (Given - Provider: Rima Walsh, RN) 09 (Given - Provider: Lexii Panchal, VJ) 0824 (Give n - Provider: Brea Barnes RN) 25 mg, Oral, DAILY, First dose on 12/29 at 1000, DO NOT CRUSH. Tablet may be split in half along score line. omeprazole (priLOSEC) CR capsule 40 mg 2337 (Given - P rovider: Libra Randall RN) 2214 (Given - Provider: Yolanda Sow RN) 40 mg, Oral, AT BEDTIME, First dose on Tue01/13/21 at 2330 penicillin G potassium 5 million units v ial to attach to NS 100 mL bag (COMPLETED) 905 (New Bag - Provider: Audrey Saravia RN) STAT, 5 Million Units, Intravenous, ONCE , Tue01/13/21 at 0830, For 1 dose, Loading Dose. Active upon active labor status., Indications: Group B Strep penicillin G potassium intermittent infusion 2.5 Jenny on Units (CANCELED) 1250 (New Bag - Provider: Audrey Saravia RN)1856 (Not Given - Provider: Elizabeth Rivera RN - Reason: Order parameters not met - Comment: pt delivered) Routine, 2.5 Million Units, Intravenous, EVERY 4 HOURS, First dose on Tue01/13/21 at 1230, To be given until delivery., Indications: Group B Strep multivitamin w/iron per tablet 1 tablet 2337 (Given - Provider: Libra Randall RN) 2214 (Given - Provider: Yolanda Sow RN) 1 tablet, Oral, AT BEDTIME, First dose on Tue01/13/21 at 2330 rho(D) immune globulin (RHOGAM) injection 300 mcg (COMPLETED ) 957 (Given - Provider: Lexii Panchal RN) 300 mcg, Intramuscular, ONCE, Tue01/14/21 at 0900, For 1 dose, This order was placed by [facility] based on Laboratory testing and a provider order. senna-docusate (SENOKOT-S/PERICOLACE) 8. 6-50 MG per tablet 1 tablet(Linked Group 1) 2209 (Given - Provider: Clarice Myles RN) 902 (Giv en - Provider: Lexii Panchal RN)2214 (Given - Provider: Yolanda Sow RN) 08 (See Alternative - Provider: Brea Barnes RN) 1 tablet, Oral, 2 TIMES DAILY, First dos e on Tue01/13/21 at 2100, If no bowel movement in 24 hours, increase to 2 tablets by mouth. Hold for loose stools. senna-docusate (SENOKOT-S/PERICOLACE) 8. 6-50 MG per tablet 2 tablet(Linked Group 1) 2209 (See Alternative - Provider: Clarice Myles RN) 902 (See Alternative - Provider: Lexii Panchal RN)2214 (See Alternative - Provider: Yolanda Sow RN) 0824 (Given - Provider: Brea Barnes RN) 2 tablet, Oral, 2 TIMES DAILY, First dos e on Tue01/13/21 at 2100, Hold for loose stools. sertraline (ZOLOFT) tablet 150 mg 2209 (Given - Provider: Garcia RN) 2213 (Given - Provider: Yolanda Sow RN) 150 mg, Oral, AT BEDTIME, First dose on Tue01/13/21 at 2200, Toxic effects may be increased with concurrent administration of NSAIDs (Ibuprofen/Ketoprofen) and Selective Serotonin Reuptake Inhibitors (Se rtraline). The risk of upper GI bleeding may be increased. Patients taking both drugs concurrently should be educated about the signs and symptoms of GI bleeding. Continuous Medication Order 01/13/2021 01/14/2021 01/15/2021 lactated ringers infusion (CANCELED) 906 (New Bag - P rovider: Audrey Saravia RN) at 125 mL/hr, Intravenous, CONTINUOUS, S tarting Tue01/13/21 at 0830, Until Tue01/13/21 at 1906 oxytocin (PITOCIN) 30 units in 500 mL 0.9% NaCl infusi on (CANCELED) 0903 (New Bag - Provider: Audrey Saravia RN)0930 (Rate/Dose Change - Provider: Audrey Saravia RN)1000 (Rate/Dose Change - Provider: Audrey Saravia RN)1030 (Rate/Dose Change - Provider: Audrey Saravia RN) 1-24 jenny-units/min (1-24 mL/hr), at 1- 24 mL/hr, Intravenous, CONTINUOUS, Starting Tue01/13/21 at 0830, Start infusion at 2 jenny-units/min. Increase by 1- 2 jenny-units/min every 30 minutes as clinicall 1130 (Rate/Dose Change - Provider: Audrey Saravia RN)1200 (Rate/Dose Change - Provider: Audrey Saravia RN)1604 (Stopped - Provider: Elizabeth Rivera RN) y indicated until contractions are 2-3 m inutes apart, lasting 45 to 60 seconds in duration to achieve labor progress. Max rate is 24 milliunits/min. Do NOT go higher without a provider order. If oxytoci n (PITOCIN) infusion is discontinued and off for less than 30 minutes, restart infusion at half of previous oxytocin (PITOCIN) rate. If oxytocin (PITOCIN) infusion has been discontinued equal to or grea ter than 30 minutes, begin at initial do se. IF another cervical ripening medication is ordered wait 60 minutes after oxytocin (PITOCIN) infusion is stopped before administering cervical ripening medication. oxytocin (PITOCIN) 30 units in 500 mL 0.9% NaCl infusi on 171 (Rate/Dose Change - Provider: Elizabeth Rivera RN) 100 mL/hr, at 100 mL/hr, Intravenous, CO NTINUOUS, Starting Tue01/13/21 at 1630, At 100 mL/hr to follow after initial oxytocin loading dose (340 mL/hr). Continue until infusion complete (about 3.5 hours) or per provider discretion. Begin after delivery of placenta; IV to continue until patient stable. Discontinue or saline lock per nurse discretion. PRN Medication Order 01/13/2021 01/14/2021 01/15/2021 acetaminophen (TYLENOL) tablet 650 mg 650 mg, Oral, EVERY 4 HOURS PRN, mild pa in, fever, greater than or equal to 38?? C /100.4?? F (oral) or 38.5?? C/ 101.4?? F (core)., Starting Tue01/13/21 at 1610, Maximum acetaminophen dose from all sources = 75 mg/kg/day not to exceed 4 grams/day. bisacodyl (DULCOLAX) Suppository 10 mg 10 mg, Rectal, DAILY PRN, constipation, Starting Tue01/15/21 at 0000, Hold for loose stools. Blood Bank will determine if patient is eligible for and the proper dosage of Rho (D) immune globulin (RhoGam) CONTINUOUS PRN, Starting Tue01/13/21 at 1 610, Until Noa 01/15/21 at 1805, Blood Bank will determine if patient is eligible for and the proper dosage of Rho (D) immune globulin (RhoGam) based on laboratory results and will enter appropriate dosin g order. If appropriate dose is greater than the standard dose (300 mcg), provider will be notified. hydrocortisone 2.5 % cream Rectal, 3 TIMES DAILY PRN, hemorrhoids, Starting Tue01/13/21 at 1610, Apply to hemorrhoids. Send only if nurse requests. ibuprofen (ADVIL/MOTRIN) tablet 800 mg (COMPLETED) 164 7 (Given - Provider: Elizabeth Rivera RN) 800 mg, Oral, ONCE PRN, moderate pain, m ild-moderate pain, Starting Tue01/13/21 at 0817, For 1 dose, Available for administration after delivery. May give with acetaminophen. Give with food. ibuprofen (ADVIL/MOTRIN) tablet 800 mg 2333 (Not Given - Provider: Libra Randall RN - Reason: Patient/family refused) 0310 (Given - Provider: Libra Randall, VJ)0905 (Given - Provider: Lexii Panchal, VJ)1600 (Given - Provider: Lexii Panchal, VJ)2217 (Canceled Entry - Provider: Yolanda Sow, VJ)2308 (Given - Provider: Yolanda Sow, VJ) 1452 (Given - Provider: Diann Monahan LPN) 800 mg, Oral, EVERY 6 HOURS PRN, other, cramping, Starting Tue01/13/21 at 2300, Start 6 hours after ketorolac is completed (if ordered). Max dose: 3200 mg/day Give with food. lactated ringers BOLUS 1,000 mL (CANCELED) 1321 (Rate/ Dose Change - Provider: Audrey Saravia RN) Intravenous, 1,000 mL, ONCE PRN, IF shira ent to have epidural or intrathecal narcotics and NOT pre-eclamptic, Starting 01/13/21 at 0817, For 1 dose, IV bolus must be initiated 15-30 min prior to epidur al or intrathecal, then IV fluids per la meliton orders. Nurse may discontinue this order if duplicate. lactated ringers BOLUS 1,000 mL Intravenous, 1,000 mL, ONCE PRN, post-pa rtum hemorrhage (PPH), Starting e 01/13/21 at 1610, For 1 dose, Rate: 500-1000 mL/hr. lanolin cream Topical, EVERY 1 HOUR PRN, dry skin, sor e nipples, Starting e 01/13/21 at 1610, Apply to sore nipples. naloxone (NARCAN) injection 0.2 mg(Linked Group 2) 0.2 mg, Intravenous, EVERY 2 MIN PRN, op ioid reversal, Starting Tue01/13/21 at 0754, Administer intravenous route when available and notify provider when administered. For unintended sedation or respirat ory depression if all of the below crite no are met: ~ respiratory rate LESS than or EQUAL to 8. ~SaO2 less than 92% and or/end-tidal CO2 is greater than 50. ~ the patient is receiving an opioid, has un intended sedations assessed as RASS (-3) , and is currently not on mechanical ventilation. RASS scale moderate (-3) is movement or eye opening to voice but no eye contact. Patient Monitoring Once the pat ient has demonstrated a response to the naloxone, continue to monitor respiratory rate, depth, oxygen saturation and end-tidal CO2 (if available) every 15 minutes x 2, then every 30 minutes x 2, then ev andrey 1 hour x 1 after each naloxone dose. Consider transfer to ICU if patient respiratory parameters have not improved after 4 naloxone doses. For ordered IV doses 0.1-2mg give IVP. Give each 0.4mg over 15 seconds in emergency situations. For non-emergent situations further dilute in 9mL of NS to facilitate titration of response. naloxone (NARCAN) injection 0.2 mg(Linked Group 2) 0.2 mg, Intramuscular, EVERY 2 MIN PRN, opioid reversal, Starting Tue01/13/21 at 0754, Administer intramuscular if an intravenous route is not available and notify provider when administered. For uninten ded sedation or respiratory depression i f all of the below criteria are met: ~ respiratory rate LESS than or EQUAL to 8. ~SaO2 less than 92% and or/end-tidal CO2 is greater than 50. ~ the patient is rec eiving an opioid, has unintended sedatio ns assessed as RASS (-3), and is currently not on mechanical ventilation. RASS scale moderate (-3) is movement or eye opening to voice but no eye contact. Patient Monitoring Once the patient has demonst rated a response to the naloxone, continue to monitor respiratory rate, depth, oxygen saturation and end-tidal CO2 (if available) every 15 minutes x 2, then every 30 minutes x 2, then every 1 hour x 1 a fter each naloxone dose. Consider transfer to ICU if patient respiratory parameters have not improved after 4 naloxone doses. For ordered IV doses 0.1-2mg give IV P. Give each 0.4mg over 15 seconds in em ergency situations. For non-emergent situations further dilute in 9mL of NS to facilitate titration of response. naloxone (NARCAN) injection 0.4 mg(Linked Group 2) 0.4 mg, Intravenous, EVERY 2 MIN PRN, op ioid reversal, Starting Tue01/13/21 at 0754, Administer intravenous route when available and notify provider when administered. For unintended sedation or respirat ory depression if all of the below crite no are met: ~ respiratory rate LESS than or EQUAL to 8. ~ SaO2 less than 92% and or/end-tidal CO2 is greater than 50. ~ the patient is receiving an opioid, has u nintended sedation assessed as RASS (-4) or (-5) and patient is currently not on mechanical ventilation. RASS scale (-4) is deep sedation with no response to voice but movement or eye opening to physica l stimulation. RASS scale (-5) is unarou sable. Patient Monitoring Once the patient has demonstrated a response to the naloxone, continue to monitor respiratory rate, depth, oxygen saturation and end-tid al CO2 (if available) every 15 minutes x 2, then every 30 minutes x 2, then every 1 hour x 1 after each naloxone dose. Consider transfer to ICU if patient respiratory parameters have not improved after 4 naloxone doses. For ordered IV doses 0 .1-2mg give IVP. Give each 0.4mg over 15 seconds in emergency situations. For non-emergent situations further dilute in 9mL of NS to facilitate titration of response. naloxone (NARCAN) injection 0.4 mg(Linked Group 2) 0.4 mg, Intramuscular, EVERY 2 MIN PRN, opioid reversal, Starting Tue01/13/21 at 0754, Administer intramuscular if an intravenous route is not available and notify provider when administered. For uninten ded sedation or respiratory depression i f all of the below criteria are met: ~ respiratory rate LESS than or EQUAL to 8. ~ SaO2 less than 92% and or/end-tidal CO2 is greater than 50. ~ the patient is re ceiving an opioid, has unintended sedati on assessed as RASS (-4) or (-5) and patient is currently not on mechanical ventilation. RASS scale (-4) is deep sedation with no response to voice but movement o r eye opening to physical stimulation. R ASS scale (-5) is unarousable. Patient Monitoring Once the patient has demonstrated a response to the naloxone, continue to monitor respiratory rate, depth, oxyge n saturation and end-tidal CO2 (if avail able) every 15 minutes x 2, then every 30 minutes x 2, then every 1 hour x 1 after each naloxone dose. Consider transfer to ICU if patient respiratory parameters have not improved after 4 naloxone doses . For ordered IV doses 0.1-2mg give IVP. Give each 0.4mg over 15 seconds in emergency situations. For non-emergent situations further dilute in 9mL of NS to facilitate titration of response. No MMR Needed - Assessment: Patient does not need MMR vaccine CONTINUOUS PRN, Starting Tue01/13/21 at 1 611, Until Noa 01/15/21 at 1805, Assessment: Patient does not need MMR immunization No Tdap Needed - Assessment: Patient does not need Tdap vaccine CONTINUOUS PRN, Starting Tue01/13/21 at 1 611, Until Noa 01/15/21 at 1805, Assessment: Patient does not need Tdap immunization oxytocin (PITOCIN) 30 units in 500 mL 0.9% NaCl infusi on (CANCELED) 1603 (Rate/Dose Change - Provider: Elizabeth Rivera RN) 100-340 mL/hr, at 100-340 mL/hr, Intrave nous, CONTINUOUS PRN, after delivery to treat or prevent uterine atony, Starting 01/13/21 at 0817, Administer 340 mL/hr over 30 minutes for a total of 170 mL th en decrease to 100 mL/hr until infusion complete (about 3.5 hours) or per provider direction. Start new bag at delivery. Discontinue or saline lock peripheral IV per nurse discretion. oxytocin (PITOCIN) 30 units in 500 mL 0.9% NaCl infusion 340 mL/hr, at 340 mL/hr, Intravenous, CO NTINUOUS PRN, for hemorrhage (PPH) UNTIL bleeding subsided, Starting e 01/13/21 at 1610, When bleeding subsides decrease rate to 100 mL/hr. Notify prov ider immediately when infusion begun. Ox ytocin is first line medication for PPH. oxytocin (PITOCIN) injection 10 Units 10 Units, Intramuscular, ONCE PRN, postp artum hemorrhage (PPH) IF no IV access is available, Starting 01/13/21 at 1610, For 1 dose, Oxytocin is first line medication for PPH. sodium phosphate (FLEET ENEMA) 1 enema 1 enema, Rectal, DAILY PRN, constipation , Starting Noa 01/15/21 at 0000, Use if bisacodyl not effective Hold for loose stools unless being administered as part of a bowel prep regimen prior to a procedure. tranexamic acid 1 g in 100 mL 0.7% NaCl IV bag (premix) 1 g, Intravenous, Administer over 10 Min utes, EVERY 30 MIN PRN, Post- hemorrhage (PPH), Starting 01/13/21 at 1610, For 2 doses, Provider consultation REQUIRED and MUST be administered as soon as the ONSET of bleeding AND within 3 hour s of regardless of cause of the PPH (atony OR laceration). IF bleeding continues, a 2nd dose may be administered after 30 minutes. IF concern for DIC (Disse minated Intravascular Coagulation), obta in coagulation studies PRIOR to administration. Mix in 50 mL or 100 mL normal saline and infuse. Contraindications include: history of PE (Pulmonary Emboli), DVT (Deep Vein Thrombosis) and current Subarachnoid hemorrhage and a ctive DIC. Linked Groups Order Group 1: senna-docusate (SENOKOT-S/PERICOLACE) 8.6-50 MG per tablet 1 tabletJump to med 1 tablet, Oral, 2 TIMES DAILY, First dos e on Tue01/13/21 at 2100
If no bowel movement in 24 hours, increase to 2 tablets by mouth. Hold for loose stools.
Or senna-docusate (SENOKOT-S/PERICOLACE) 8.6-50 MG per tablet 2 tabletJump to med 2 tablet, Oral, 2 TIMES DAILY, First dos e on Tue01/13/21 at 2100
Hold for loose stools.
Group 2: naloxone (NARCAN) injection 0.2 mgJump to med 0.2 mg, Intravenous, EVERY 2 MIN PRN, op ioid reversal, Starting Tue01/13/21 at 0754
Administer intravenous route when available and notify provider when administered. For unintended sed ation or respiratory depression if all o f the below criteria are met: ~ respiratory rate LESS than or EQUAL to 8. ~SaO2 less than 92% and or/end- tidal CO2 is greater than 50.&nbsp ;~ the patient is receiving an opioid, h as unintended sedations assessed as RASS (-3), and is currently not on mechanical ventilation. RASS scale moderate (-3) is movement or eye open ing to voice but no eye contact. &n bsp;Patient Monitoring Once the patient has demonstrated a response to the naloxone, continue to monitor respiratory rate, depth, oxygen saturati on and end-tidal CO2 (if available) ever y 15 minutes x 2, then every 30 minutes x 2, then every 1 hour x 1 after each naloxone dose. Consider transfer to ICU if patient respiratory pa rameters have not improved after 4 nalox one doses. For ordered IV doses 0.1-2mg give IVP. Give each 0.4mg over 15 seconds in emergency situations. For non-emergent situations further dilute in 9mL of NS to facilitate titration of response.
Or naloxone (NARCAN) injection 0.4 mgJump to med 0.4 mg, Intravenous, EVERY 2 MIN PRN, op ioid reversal, Starting Tue01/13/21 at 0754
Administer intravenous route when available and notify provider when administered. For unintended sed ation or respiratory depression if all o f the below criteria are met: ~ respiratory rate LESS than or EQUAL to 8. ~ SaO2 less than 92% and or/end- tidal CO2 is greater than 50.&nbsp ;~ the patient is receiving an opioid, h as unintended sedation assessed as RASS (-4) or (-5) and patient is currently not on mechanical ventilation. RASS scale (-4) is deep sedation w ith no response to voice but movement or eye opening to physical stimulation. RASS scale (-5) is unarousable. Patient Monitoring Once t he patient has demonstrated a response t o the naloxone, continue to monitor respiratory rate, depth, oxygen saturation and end-tidal CO2 (if available) every 15 minutes x 2, then every 30 minutes x 2, t hen every 1 hour x 1 after each naloxone dose. Consider transfer to ICU if patient respiratory parameters have not improved after 4 naloxone doses. For ordered IV doses 0.1-2 mg give IVP. Give each 0.4mg over 15 sec onds in emergency situations. For non- emergent situations further dilute in 9mL of NS to facilitate titration of response.
Or naloxone (NARCAN) injection 0.2 mgJump to med 0.2 mg, Intramuscular, EVERY 2 MIN PRN, opioid reversal, Starting Tue01/13/21 at 0754
Administer intramuscular if an intravenous route is not available and notify provider when administered.&amp ;nbsp;For unintended sedation or respira tory depression if all of the below criteria are met: ~ respiratory rate LESS than or EQUAL to 8. ~SaO2 less than 92% and or/end-tidal CO2 is g reater than 50. ~ the patient is re ceiving an opioid, has unintended sedations assessed as RASS (-3), and is currently not on mechanical ventilation. RASS scale moderate (-3) is movement or eye opening to voice but no eye contact. Patient Monitoring Once the patient has demonstrated a response to the naloxone, continue to monitor respiratory rate , depth, oxygen saturation and end-tidal CO2 (if available) every 15 minutes x 2, then every 30 minutes x 2, then every 1 hour x 1 after each naloxone dose. Consider transfer to ICU i f patient respiratory parameters have no t improved after 4 naloxone doses. For ordered IV doses 0.1-2mg give IVP. Give each 0.4mg over 15 seconds in emergency situations. For non-emergent situa tions further dilute in 9mL of NS to fac ilitate titration of response.
Or naloxone (NARCAN) injection 0.4 mgJump to med 0.4 mg, Intramuscular, EVERY 2 MIN PRN, opioid reversal, Starting Tue01/13/21 at 0754
Administer intramuscular if an intravenous route is not available and notify provider when administered.&amp ;nbsp;For unintended sedation or respira tory depression if all of the below criteria are met: ~ respiratory rate LESS than or EQUAL to 8. ~ SaO2 less than 92% and or/end-tidal CO2 is g reater than 50. ~ the patient is re ceiving an opioid, has unintended sedation assessed as RASS (-4) or (-5) and patient is currently not on mechanical ventilation. RASS scale (-4) is deep sedation with no response to voice but movement or eye opening to physical stimulation. RASS scale (-5) is unarousable. Patient Mo nitoring Once the patient has demon strated a response to the naloxone, continue to monitor respiratory rate, depth, oxygen saturation and end-tidal CO2 (if available) every 15 minutes x 2, then every 30 minutes x 2, then every 1 hour x 1 after each naloxone dose. Consider transfer to ICU if patient respiratory parameters have not improved after 4 naloxone doses. Fo r ordered IV doses 0.1-2mg give IVP. Giv e each 0.4mg over 15 seconds in emergency situations. For non-emergent situations further dilute in 9mL of NS to facilitate titration of response.
documented in this encounter Additional Health Concerns Assessment Noted Time PHQ-9 Depression Total Score: 6 09/29/2020 3:25 PM CDT documented as of this encounter Care Teams Payroll Tax Analyst Relationship Specialty Start Date End Date Marija Edgar APRN PCP - General Nurse Practitioner 04/30/20 CALL OUT CLERK [id number] [place] [address] Lita Oseguera Personal Advocate & 02/28/20 Liaison (PAL) Chanelle Mccann Assigned OBGYN Provider 05/02/20 05/09/[address] [place] [address] [facility] [address] [place], [place] [address] Kyara De La Fuente, VJ Specialty Care Neurology 06/04/20 03/05/21 Coordinator Marija Edgar APRN Assigned PCP 06/08/20 CALL OUT CLERK [address] [place] [address] Mynor Broussard MD Assigned Surgical 06/01/20 11/28/21 [address] Provider [address] [address] Mauri, Assigned Neuroscience 06/04/20 MD Keisha Provider [address] [place], [place] [id number] Galo Burrell MD Assigned Heart and 10/05/20 04/02/22 [address] Vascular Provider [address] [id number] documented as of this encounter
--- OUTSIDE RECORDS SUMMARY | 2022-04-28 01:15 | XMS_ITS | Encounter Summary ---
:2000 Author Organization [facility] Address [address] [place] [id number] Care Team Providers Name Role Phone Lita Oseguera Unavailable Unavailable Marija Edgar APRN CATHEAD OPERATOR Primary Care Provider [phone] Chanelle Mccann APRN CNM Unavailable + Kyara De La Fuente RN Unavailable Marija Edgar APRN CATHEAD OPERATOR Unavailable Mynor Broussard MD Unavailable Keisha Dotson MD Unavailable Galo Burrell MD Unavailable Encounter Details Date Type Department Care Team Description 01/18/2021 Emergency [facility] Francois Caputo Chest pain ; [facility] Emergency Dep t [place] Brown Left flank pain; [address] [facility] Myalgia; [place] Abdominal pain, generalized; [id number] [place] [phone] [facility] [[email or web address]] [address] [place], [place] [address] (Wo rk) Social History Tobacco Use Types [...] How often do you attend alevism or yazdanism services? Never 09/22/2021 Do you [...] Sign Reading Time Taken Comments Blood Pressure 121/80 01/18/2021 9:15 PM CDT Pulse 70 01/18/2021 9:15 PM CDT Temperature 37.5 ??C (99.5 ??F) 01/18/2021 1:10 PM CDT Respiratory Rate 18 01/18/2021 1:10 PM CDT Oxygen Saturation 100% 01/18/2021 9:15 PM CDT Inhaled Oxygen Concentration - - Weight - - Height - - Body Mass Index - - documented in this encounter Discharge Instructions Discharge Francois Mireles PA-C - 01/18/2021 6:28 PM CDT Discharge Instructions Chest Pain You have been seen today for chest pain or discomfort. At this time, your provider has found no signs that your chest pain is due to a serious or life- threatening condition, (or you have declined more testing and/or admission to the hospital). However, sometimes there is a serious problem that does not show up right away. Your evaluation today may not be complete and you may need further testing and evaluation. Generally, every Emergency Department visit should have a follow-up clinic visit with either a primary or a specialty clinic/provider. Please follow-up as instructed by your emergency provider today. Return to the Emergency Department if: Your chest pain changes, gets worse, starts to happen more often, or comes with less activity. You are newly short of breath. You get very weak or tired. You pass out or faint. You have any new symptoms, like fever, cough, numb legs, or you cough up blood. You have anything else that worries you. Until you follow-up with your regular provider, please do the following: Take one aspirin daily unless you have an allergy or are told not to by your provider. If a stress test appointment has been made, go to the appointment. If you have questions, contact your regular provider. Follow-up with your regular provider/clinic as directed; this is very important. If you were given a prescription for medicine here today, be sure to read all of the information (including the package insert) that comes with your prescription. This will include important information about the medicine, its side effects, and any warnings that you need to know about. The pharmacist who fills the prescription can provide more information and answer questions you may have about the medicine. If you have questions or concerns that the pharmacist cannot address, please call or return to the Emergency Department. Remember that you can always come back to the Emergency Department if you are not able to see your regular provider in the amount of time listed above, if you get any new symptoms, or if there is anything that worries you. Discharge Instructions Abdominal Pain Abdominal pain (belly pain) can be caused by many things. Your evaluation today does not show the exact cause for your pain. Your provider today has decided that it is unlikely your pain is due to a life threatening problem, or a problem requiring surgery or hospital admission. Sometimes those problems cannot be found right away, so it is very important that you follow up as directed. Sometimes only the changes which occur over time allow the cause of your pain to be found. Generally, every Emergency Department visit should have a follow-up clinic visit with either a primary or a specialty clinic/provider. Please follow-up as instructed by your emergency provider today. With abdominal pain, we often recommend very close follow-up, such as the following day. ADULTS: Return to the Emergency Department right away if: You get an oral temperature above 102oF or as directed by your provider. You have blood in your stools. This may be bright red or appear as black, tarry stools. You keep vomiting (throwing up) or cannot drink liquids. You see blood when you vomit. You cannot have a bowel movement or you cannot pass gas. Your stomach gets bloated or bigger. Your skin or the whites of your eyes look yellow. You faint. You have bloody, frequent or painful urination (peeing). You have new symptoms or anything that worries you. CHILDREN: Return to the Emergency Department right away if your child has any of the above-listed symptoms or the following: Pushes your hand away or screams/cries when his/her belly is touched. You notice your child is very fussy or weak. Your child is very tired and is too tired to eat or drink. Your child is dehydrated. Signs of dehydration can be: Significant change in the amount of wet diapers/urine. Your or child starts to have dry mouth and lips, or no saliva (spit) or tears. WOMEN: Return to the Emergency Department right away if you have any of the above-listed symptoms or the following: You have bleeding, leaking fluid or passing tissue from the vagina. You have worse pain or cramping, or pain in your shoulder or back. You have vomiting that will not stop. You have a temperature of 100oF or more. Your baby is not moving as much as usual. You faint. You get a bad headache with or without eye problems and abdominal pain. You have a seizure. You have unusual discharge from your vagina and abdominal pain. Abdominal pain is pretty common during . Your pain may or may not be related to your . You should follow-up closely with your OB provider so they can evaluate you and your baby. Untilyou follow-up with your regular provider, do the following: Avoid sex and do not put anything in your vagina. Drink clear fluids. Only take medications approved by your provider. MORE INFORMATION: Appendicitis: A possible cause of abdominal pain in any person who still has their appendix is acuteappendicitis. Appendicitis is often hard to diagnose. Testing does not always rule out early appendicitis or other causes of abdominal pain. Close follow-up with your provider and re-evaluations may beneeded to figure out the reason for your abdominal pain. Follow-up: It is very important that you make an appointment with your clinic and go to the appointment. If you do not follow-up with your primary provider, it may result in missing an important development which could result in permanent injury or disability and/or lasting pain. If there is any problem keeping your appointment, call your provider or return to the Emergency Department. Medications: Take your medications as directed by your provider today. Before using ywdy-vbc-clvvnqtpjcsgxclecf, ask your provider and make sure to take the medications as directed. If you have any questions about medications, ask your provider. Diet: Resume your normal diet as much as possible, but do not eat fried, fatty or spicy foods while you have pain. Do not drink alcohol or have caffeine. Do not smoke tobacco. Probiotics: If you have been given an antibiotic, you may want to also take a probiotic pill or eat yogurt with live cultures. Probiotics have good bacteria to help your intestines stay healthy. Studies have shown that probiotics help prevent diarrhea (loose stools) and other intestine problems (including C. diff infection) when you take antibiotics. You can buy these without a prescription in the pharmacy section of the store. If you were given a prescription for medicine here today, be sure to read all of the information (including the package insert) that comes with your prescription. This will include important information about the medicine, its side effects, and any warnings that you need to know about. The pharmacist who fills the prescription can provide more information and answer questions you may have about the medicine. If you have questions or concerns that the pharmacist cannot address, please call or return to the Emergency Department. Remember that you can always come back to the Emergency Department if you are not able to see your regular provider in the amount of time listed above, if you get any new symptoms, or if there is anything that worries you. AttachmentsThe following attachments cannot be sent through Care Everywhere. Myalgias (Gabonese)Dysuria (Gabonese)documented in this encounter Medications at Time of Discharge Medication Sig Dispensed Refills Start Date End Date Vit-Fe Take 1 tablet by 90 tablet 3 06/04/2020 Fumarate-FA ( mouth daily MULTIVITAMIN W/IRON) 27-0.8 MG tablet amoxicillin (AMOXIL) 875 Take 1 tablet (875 14 tablet 0 03/202101/26/2021 MG tabletIndications: mg) by mouth 2 Dysuria times daily for 10 days levETIRAcetam (KEPPRA) Take 1 tab twice a [...] EVERY DAY documented as of this encounter ED Notes Macy Lomeli RN - 01/18/2021 1:16 PM CDT Patient waiting on Peds floor because her daughter is admitted. Macy Lomeli RN - 01/18/2021 1:10 PM CDT Patient recently gave 7/6. Discharged on the . Patient c/o not feeling well at all. Hot and cold flashes, legs and feet swelling, body aches and left sided back pain. Also states it stings when I pee. Also states she is trying to breast feed and her breast are painful and warm to touch. ABCs intact. Patient's baby is admitted to hospital. ERIOT Francois Caputo PA-C - 01/18/2021 12:51 PM CDT History Chief Complaint: Multiple Complaints The history is provided by the patient. Kim Johnson is a 20 year old female with a history of anxiety, SVT, and GERD who presents with multiple complaints. The patient recently gave on 01/[address] vaginal delivery, she did have SVT during and was ultimately induced early at 36-37 weeks. Her daughter is currently admitted to pediatrics here at [facility]. Over the last 2 days, the patient has been feeling increasingly unwell. She has had generalized body aches in addition to a low grade fever. The patient also endorses lower abdominal pain, diarrhea, left-sided flank pain, and burning with urination. She does have positive history of kidney stones as well as CKD. The patient has some swelling to her legs and feet, she also had some mild shortness of breath earlier today but this has since resolved. She has been bleedingvaginally since she gave but notes that this improving. She has not observed any purulent discharge. The patient does complain of breast pain and adds that her skin feels hot to the touch. She iscurrently trying to breastfeed but has had difficulty secondary to pain. The patient denies any cough. She is not yet vaccinated for COVID-19. Of note, the patient took a half dose of her metoprolol today as she recorded her heart rate to be much lower than usual. Review of Systems Constitutional: Positive for fatigue and fever (low grade). Respiratory: Positive for shortness of breath (resolved). Negative for cough. Cardiovascular: Positive for leg swelling. Gastrointestinal: Positive for abdominal pain and diarrhea. Genitourinary: Positive for dysuria, flank pain (L) and vaginal bleeding (improving). Negative for vaginal discharge. Musculoskeletal: Positive for myalgias (generalized, also breast pain). Skin: (+) breasts feel hot to the touch All other systems reviewed and are negative. Allergies: No Known Drug Allergies Medications: Levetiracetam Metoprolol Omeprazole Sertraline Past Medical History: Anxiety CKD Depression GERD Seizure SVT Psoriasis Kidney stones Asthma Headaches Past Surgical History: surgery Family History: Sister - brain tumor Social History: The patient was accompanied to the ED by her father. PCP: Marija Edgar Marital status: Single Physical Exam Patient Vitals for the past 24 hrs: BP Temp Temp src Pulse Resp SpO2 01/18/215 121/80 -- -- 70 -- 100 % 01/18/212099 117/79 -- -- 69 -- 99 % 01/18/212044 113/75 -- -- 64 -- 94 % 01/18/212029 115/55 -- -- 71 -- 97 % 01/18/212014 110/68 -- -- 67 -- 96 % 01/18/211999 123/75 -- -- 65 -- 95 % 01/18/211944 110/75 -- -- 64 -- 97 % 01/18/211929 109/71 -- -- 62 -- 97 % 01/18/21 191 121/74 -- -- 65 -- 99 % 01/18/21 1900 121/63 -- -- 82 -- 97 % 01/18/21 1830 123/69 -- -- 58 -- 97 % 01/18/21 1815 121/72 -- -- 73 -- -- 01/18/21 1800 122/63 -- -- -- -- 100 % 01/18/21 1745 121/64 -- -- 69 -- 99 % 01/18/21 1730 129/72 -- -- 93 -- 98 % 01/18/21 1715 126/80 -- -- 75 -- 98 % 01/18/21 1310 129/76 99.5 ??F (37.5 ??C) Oral 95 18 98 % Physical Exam General: Awake, alert, pleasant, non-toxic. Head: Scalp is NC/AT Eyes: Conjunctiva normal, PERRL ENT: The external nose and ears are normal. Oropharynx clear Neck: Normal range of motion without rigidity. CV: Regular rate and rhythm No pathologic murmur, rubs, or gallops. Resp: Breath sounds are clear bilaterally. No crackles, wheezes, rhonchi, stridor. Non-labored, no retractions or accessory muscle use Abdomen: Abdomen is soft, no distension, no tenderness, no masses. No CVA tenderness. ETL TESTER: No breast redness or swelling (Performed in presence of Reta RN female chaparone) MS: No lower extremity edema or asymmetric calf swelling. Normal ROM in all joints without effusions. No midline cervical, thoracic, or lumbar tenderness Skin: Warm and dry, No rash or lesions noted. 2+ peripheral pulses in all extremities Neuro: Alert and oriented x3. No gross motor deficits. No facial asymmetry. Psych: Awake. Alert. Normal affect. Appropriate interactions. Emergency Department Course ECG: Completed at 1545. Read at [address] Bean. Normal sinus rhythm Rate 79 bpm. UT interval 138. QRS duration 84. QT/QTc 362/415. P-R-T axes 37 49 33. Agree with computer interpretation. Imaging: Abd/pelvis CT, IV contrast only TRAUMA / AAA: Pending Laboratory: CBC: WBC 6.8, HGB 9.7 (L), PLT 227 CMP: Protein 6.6 (L), Albumin 2.8 (L), o/w WNL (Creatinine 0.71) N-Terminal Pro BNP: 19 Troponin (Collected 1638): <0.015 CK total: 102 Lactic acid (result time 1709): 0.6 (L) D dimer: 0.61 (H) Keppra level: Pending Symptomatic SARS-CoV2 (COVID-19) Virus: Pending Procedures None. Emergency Department Course: Reviewed: I reviewed the patient's nursing notes, vitals, past medical history and care everywhere. Assessments: 152 I performed an exam of the patient in room 29 as documented above. 1718 Patient rechecked and updated on findings. Interventions: 1711 Tylenol 1,000 mg PO 1713 NS 1L IV Bolus Disposition: Care of the patient was transferred to my colleague Luis Angel Gonzalez CNP, pending imaging and lab results. Impression & Plan Medical Decision Making: Kim Johnson is a 20 year old female who presents with multiple symptoms including chest left flank pain, dysuria, myalgias, breast pain, etc. Afebrile with normal WBC and lactate no evidence of sepsis. EKG normal, troponin negative. No evidence of post- cardiomyopathy or pre-eclampsia. No signs of mastitis or breast abscess. Symptoms not consistent with endometritis. UA pending at time of my sign out, as was CT chest abdomen pelvis. Please see sign out note from my partner regarding follow-up on those tests and return precautions. Covid-19 Kim Johnson was evaluated during a global COVID-19 pandemic, which necessitated consideration that the patient might be at risk for infection with the SARS-CoV-2 virus that causes COVID-19. Applicable protocols for evaluation were followed during the patient's care. COVID-19 was considered as part of the patient's evaluation. A test was obtained during this visit. Diagnosis: ICD-10-CM 1. Chest pain R07.9 2. Left flank pain R10.9 3. Myalgia M79.10 4. Abdominal pain, generalized R10.84 5. Dysuria R30.0 Scribe Disclosure: I, Rosemarie Coppola, am serving as a scribe at 3:21 PM on 01/18/2021 to document services personallyperformed by Francois Caputo PA-C based on my observations and the provider's statements to me. This note was completed in part using [employer] voice recognition software. Although reviewed after completion, some word and grammatical errors may occur. Rosemarie Coppola 01/18/2021 [facility] EMERGENCY DEPARTMENT Francois Caputo PA-C 01/19/21 1141 Luis Angel Gonzalez APRN CATHEAD OPERATOR - 01/18/2021 12:51 PM CDT Assumed care from my partner Francois Caputo PA-C. Plan was for patient to be discharged pending laboratory and imaging results. The work-up to this point did not point to any significant findings. I reviewed the laboratory studies and CT findings. There was no indication for acute infectious process or pulmonary embolism with her CT scan. Her laboratory studies show a urinalysis that would be expected 5days . I would not initiate antibiotics at this time. Urine culture is pending. Plan will be to discharge to home and follow-up with primary care provider as previously discussed with my partner. Laboratory studies were otherwise noncontributory. Discussed findings with patient. She appears to be safe and appropriate for outpatient management follow-up and is discharged home. COVID-19 swab is pending. [facility] Recent Results (from the past 8 hour(s)) EKG 12-lead, tracing only Collection Time: 01/18/21 3:45 PM Result Value Ref Range Interpretation ECG Click View Image link to view waveform and result Comprehensive metabolic panel Collection Time: 01/18/21 4:38 PM Result Value Ref Range Sodium 139 133 - 144 mmol/L Potassium 3.8 3.4 - 5.3 mmol/L Chloride 106 94 - 109 mmol/L Carbon Dioxide (CO2) 26 20 - 32 mmol/L Anion Gap 7 3 - 14 mmol/L Urea Nitrogen 9 7 - 30 mg/dL Creatinine 0.71 0.52 - 1.04 mg/dL Calcium 8.9 8.5 - 10.1 mg/dL Glucose 73 70 - 99 mg/dL Alkaline Phosphatase 110 40 - 150 U/L AST 18 0 - 45 U/L ALT 26 0 - 50 U/L Protein Total 6.6 (L) 6.8 - 8.8 g/dL Albumin 2.8 (L) 3.4 - 5.0 g/dL Bilirubin Total 0.2 0.2 - 1.3 mg/dL GFR Estimate >90 >60 mL/min/1.73m2 Lactic acid whole blood Collection Time: 01/18/21 4:38 PM Result Value Ref Range Lactic Acid 0.6 (L) 0.7 - 2.0 mmol/L Troponin I Collection Time: 01/18/21 4:38 PM Result Value Ref Range Troponin I <0.015 0.000 - 0.045 ug/L Nt probnp inpatient (BNP) Collection Time: 01/18/21 4:38 PM Result Value Ref Range N terminal Pro BNP Inpatient 19 0 - 450 pg/mL CK total Collection Time: 01/18/21 4:38 PM Result Value Ref Range CK 102 30 - 225 U/L CBC with platelets and differential Collection Time: 01/18/21 4:38 PM Result Value Ref Range WBC Count 6.8 4.0 - 11.0 10e3/uL RBC Count 3.74 (L) 3.80 - 5.20 10e6/uL Hemoglobin 9.7 (L) 11.7 - 15.7 g/dL Hematocrit 31.1 (L) 35.0 - 47.0 % MCV 83 78 - 100 fL MCH 25.9 (L) 26.5 - 33.0 pg MCHC 31.2 (L) 31.5 - 36.5 g/dL RDW 14.0 10.0 - 15.0 % Platelet Count 227 150 - 450 10e3/uL % Neutrophils 64 % % Lymphocytes 25 % % Monocytes 6 % % Eosinophils 3 % % Basophils 1 % % Immature Granulocytes 1 % NRBCs per 100 WBC 0 <1 /100 Absolute Neutrophils 4.4 1.6 - 8.3 10e3/uL Absolute Lymphocytes 1.7 0.8 - 5.3 10e3/uL Absolute Monocytes 0.4 0.0 - 1.3 10e3/uL Absolute Eosinophils 0.2 0.0 - 0.7 10e3/uL Absolute Basophils 0.0 0.0 - 0.2 10e3/uL Absolute Immature Granulocytes 0.0 <=0.0 10e3/uL Absolute NRBCs 0.0 10e3/uL Extra Red Top Tube Collection Time: 01/18/21 4:38 PM Result Value Ref Range Hold Specimen JIC Extra Green Top ([place] Heparin) Tube Collection Time: 01/18/21 4:38 PM Result Value Ref Range Hold Specimen JIC Extra Purple Top Tube Collection Time: 01/18/21 4:38 PM Result Value Ref Range Hold Specimen JIC D dimer quantitative Collection Time: 01/18/21 4:39 PM Result Value Ref Range D-Dimer Quantitative 0.61 (H) 0.00 - 0.50 ug/mL FEU UA with Microscopic reflex to Culture Collection Time: 01/18/21 6:05 PM Specimen: Urine, Midstream Result Value Ref Range Color Urine Yellow Colorless, Straw, Light Yellow, Yellow Appearance Urine Clear Clear Glucose Urine Negative Negative mg/dL Bilirubin Urine Negative Negative Ketones Urine 10 (A) Negative mg/dL Specific Mccamey Urine 1.016 1.003 - 1.035 Blood Urine Moderate (A) Negative pH Urine 5.5 5.0 - 7.0 Protein Albumin Urine Negative Negative mg/dL Urobilinogen Urine Normal Normal, 2.0 mg/dL Nitrite Urine Negative Negative Leukocyte Esterase Urine Trace (A) Negative Bacteria Urine Few (A) None Seen /HPF Mucus Urine Present (A) None Seen /LPF RBC Urine 31 (H) <=2 /HPF WBC Urine 9 (H) <=5 /HPF Squamous Epithelials Urine 1 <=1 /HPF Recent Results (from the past 24 hour(s)) CT Chest (PE) Abdomen Pelvis w Contrast Narrative EXAM: CT CHEST PE ABDOMEN PELVIS W CONTRAST LOCATION: [facility] DATE/TIME: 01/18/2021 5:22 PM INDICATION: Chest pain, flank pain COMPARISON: CTA chest exam 12/27/[address] abdomen and pelvis 05/27/2020 TECHNIQUE: CT chest pulmonary angiogram and routine CT abdomen pelvis with IV contrast. Arterial phase through the chest and venous phase through the abdomen and pelvis. Multiplanar reformats and MIP reconstructions were performed. Dose reduction techniques were used. CONTRAST: 68mL Isovue-370 FINDINGS: ANGIOGRAM CHEST: Pulmonary arteries are normal caliber and negative for pulmonary emboli. Thoracic aorta is negative for dissection. No CT evidence of right heart strain. LUNGS AND PLEURA: Linear strand of fibrosis or atelectasis left lower lobe. The lungs otherwise are clear. No acute infiltrates or effusions. MEDIASTINUM/AXILLAE: No adenopathy. Small esophageal hiatal hernia. CORONARY ARTERY CALCIFICATION: None. HEPATOBILIARY: Hepatomegaly measuring 23 cm in length. PANCREAS: Normal. SPLEEN: Normal. ADRENAL GLANDS: Normal. KIDNEYS/BLADDER: No renal calculi or hydronephrosis. 10 x 8 mm calcification right UVJ region and 12x 10 mm calcification left UVJ region, unchanged. No ureteral dilatation. BOWEL: Normal appendix. LYMPH NODES: Normal. VASCULATURE: Unremarkable. PELVIC ORGANS: Diffusely enlarged and hyperemic uterus compatible with state. MUSCULOSKELETAL: Normal. Impression IMPRESSION: 1. No evidence for pulmonary emboli. 2. No evidence for acute pulmonary disease. 3. Enlarged and hyperemic uterus. 4. Large calcifications right and left UVJ regions are unchanged. No ureteral dilatation and possibly located within ureteroceles. 5. Hepatomegaly. 6. Small esophageal hiatal hernia. Luis Angel Gonzalez APRN CNP 01/18/212128 documented in this encounter Plan of Treatment Upcoming Encounters Date Type Specialty Care Team Description 04/28/2022 Office Visit [facility] Anthony Doe PA-C [address] [place] [address] (Wo rk) 05/03/2022 Office Visit Dermatology Neil Kent M D [address] [place], [place] [address] (Wo rk) 05/05/2022 Office Visit Optometry Yeny David, OD [address] [facility] [facility] [address] [place], [place] [id number] (Wo rk) 05/11/2022 Virtual Visit Pharm D Diana Desir , [facility] [address] [place], [place] [id number] (Wo rk) 05/14/2022 Office Visit Cardiology Livan Sharif MD [address] [facility] [[email or web address] [address] [place], [place] [address] (Wo rk) 05/31/2022 Office Visit [facility] Valery Veronica , [address] [place], [place] [address] (Wo rk) documented as of this encounter Procedures Procedure Name Priority Date/Time Associated Comments Diagnosis SARS-COV2 (COVID-19) STAT 01/18/2021 9:27 PM R esults for this VIRUS RT-PCR CDT procedure are i n the results section. COVID-19 VIRUS STAT 01/18/2021 9:27 PM Results for this (CORONAVIRUS) BY PCR CDT procedu re are in the results section. CT CHEST PE ABDOMEN STAT 01/18/2021 6:55 PM Re sults for this PELVIS W CONTRAST CDT procedure are in the results section. ROUTINE UA WITH STAT 01/18/2021 6:05 PM Result s for this MICROSCOPIC REFLEX TO CDT proced ure are in CULTURE the results section. D DIMER QUANTITATIVE STAT 01/18/2021 4:39 PM R esults for this CDT procedure are i n the results section. EXTRA TUBE STAT 01/18/2021 4:38 PM Results f or this CDT procedure are i n the results section. EXTRA PURPLE TOP TUBE STAT 01/18/2021 4:38 PM Results for this CDT procedure are i n the results section. EXTRA GREEN TOP STAT 01/18/2021 4:38 PM Result s for this (LITHIUM HEPARIN) TUBE CDT proce dure are in the results section. EXTRA RED TOP TUBE STAT 01/18/2021 4:38 PM Res ults for this CDT procedure are i n the results section. CBC WITH PLATELETS AND STAT 01/18/2021 4:38 PM Results for this DIFFERENTIAL CDT procedure are i n the results section. CBC WITH PLATELETS & STAT 01/18/2021 4:38 PM R esults for this DIFFERENTIAL CDT procedure are i n the results section. TROPONIN I STAT 01/18/2021 4:38 PM Results f or this CDT procedure are i n the results section. NT PROBNP INPATIENT STAT 01/18/2021 4:38 PM Re sults for this CDT procedure are i n the results section. LACTIC ACID WHOLE STAT 01/18/2021 4:38 PM Resu lts for this BLOOD CDT procedure are i n the results section. COMPREHENSIVE STAT 01/18/2021 4:38 PM Results for this METABOLIC PANEL CDT procedure ar e in the results section. CK TOTAL STAT 01/18/2021 4:38 PM Results f or this CDT procedure are i n the results section. EKG 12-LEAD, TRACING STAT 01/18/2021 3:45 PM R esults for this ONLY CDT procedure are i n the results section. documented in this encounter Results SARS-COV2 (COVID-19) Virus RT-PCR (01/18/2021 9:27 PM CDT) [facility] SARS CoV2 PCR Negative Negative 01/19/2021 LABORATORY 12:43 AM CDT Comment: NEGATIVE: SARS-CoV-2 (COVID-19) RNA not detected, presumed negative. Specimen Anatomical Location / Collection Method Collection Frederick e Received Time (Source) Laterality / Volume Swab NASOPHARYNGEAL Non-blood 01/18/2021 9:27 01/18/2021 9:55 STRUCTURE / Unknown Collection / PM CDT PM CDT Unknown Narrative LABORATORY - 01/19/2021 12:43 AM CDT Testing was performed using the candy?? SARS-CoV-2 & Influenza A/B Assay on the candy?? Christal?? System. ??This test shoul d be ordered for the detection of SARS-COV-2 in individuals who meet SARS-CoV-2 clini sobeida and/or epidemiological criteria. Test performance is unknown in asymptomatic p atients. ??This test is for in vitro diagnostic use under the FDA EUA for lab oratories certified under CLIA to perform moderate and/or high complexity testing. This test has not been FDA cleared or approved. ??A negative test does not rul e out the presence of PCR inhibitors in the specimen or target RNA in concentration below the limit of detection for the assay. The possibility of a false negative shou ld be considered if the patient's recent exposure or clinical presentation sugges ts COVID-19. ??[facility] are certified under the Clinical Laborat ory Improvement Amendments of 1988 (CLIA-88) as qualified to perform moderate and/or high complexity laboratory testing. Francois Caputo PA-C LAB - MICRO GENERAL ORDERAB LES Performing Organization Address City/State/[place] [address] [facility] [address] [facility] no room number[facility] CT Chest (PE) Abdomen Pelvis w Contrast (01/18/2021 6:55 PM CDT) Anatomical Region Laterality Modality Chest, SUBRAD CT BODY, UMP CT CHEST, RAD CT Computed Tomography Specimen (Source) Anatomical Collection Method Collection Time Re ceived Time Location / / Volume Laterality 01/18/2021 5:22 PM CDT Impressions 01/18/2021 7:16 PM CDT IMPRESSION: 1. ??No evidence for pulmonary emboli. 2. ??No evidence for acute pulmonary dis ease. 3. ??Enlarged and hyperemic u terus. 4. ??Large calcifications right and left UVJ regions are unchanged. No ureteral dilatation and possibly located within ureteroceles. 5. ??Hepatomegaly. 6. ??Small esophageal hiatal hernia. Narrative 01/18/2021 7:16 PM CDT EXAM: CT CHEST PE ABDOMEN PELVIS W CONTRAST LOCATION: [facility] DATE/TIME: 01/18/2021 5:22 PM INDICATION: Chest pain, flank pain COMPARISON: CTA chest exam 12/27/[address] abdomen and pelvis 05/27/2020 TECHNIQUE: CT chest pulmonary angiogram and routine CT abdomen pelvis with IV contrast. Arterial phase through the chest and venous phase through the abdomen and pelvis. Multiplanar reformats and MIP reconstructions were performed. Dose reduction techniques were used. CONTRAST: 68mL Isovue-370 FINDINGS: ANGIOGRAM CHEST: Pulmonary arteries are normal caliber and negative for pulmonary emboli. Thoracic aorta is negative for dissection. No CT evidence of right heart strain. LUNGS AND PLEURA: Linear strand of fibro sis or atelectasis left lower lobe. The lungs otherwise are clear. No acute infiltrates or effusions. MEDIASTINUM/AXILLAE: No adenopathy. Smal l esophageal hiatal hernia. CORONARY ARTERY CALCIFICATION: None. HEPATOBILIARY: Hepatomegaly measuring 23 cm in length. PANCREAS: Normal. SPLEEN: Normal. ADRENAL GLANDS: Normal. KIDNEYS/BLADDER: No renal calculi or hyd ronephrosis. 10 x 8 mm calcification right UVJ region and 12 x 10 mm calcification left UVJ region, unchanged. No ureteral dilatation. BOWEL: Normal appendix. LYMPH NODES: Normal. VASCULATURE: Unremarkable. PELVIC ORGANS: Diffusely enlarged and hy peremic uterus compatible with state. MUSCULOSKELETAL: Normal. Procedure Note Robert Duong MD - 01/18/2021Formattin g of this note might be different from the original. EXAM: CT CHEST PE ABDOMEN PELVIS W CONTR AST LOCATION: [facility] DATE/TIME: 01/18/2021 5:22 PM INDICATION: Chest pain, flank pain COMPARISON: CTA chest exam 12/27/[address] abdomen and pelvis 05/27/2020 TECHNIQUE: CT chest pulmonary angiogram and routine CT abdomen pelvis with IV contrast. Arterial phase through the chest and venous phase through the abdomen and pelvis. Multiplanar reformats and MIP reconstructions were performed. Dose reduction techniques were used. CONTRAST: 68mL Isovue-370 FINDINGS: ANGIOGRAM CHEST: Pulmonary arteries are normal caliber and negative for pulmonary emboli. Thoracic aorta is negative for dissection. No CT evidence of right heart strain. LUNGS AND PLEURA: Linear strand of fibro sis or atelectasis left lower lobe. The lungs otherwise are clear. No acute infiltrates or effusions. MEDIASTINUM/AXILLAE: No adenopathy. Smal l esophageal hiatal hernia. CORONARY ARTERY CALCIFICATION: None. HEPATOBILIARY: Hepatomegaly measuring 23 cm in length. PANCREAS: Normal. SPLEEN: Normal. ADRENAL GLANDS: Normal. KIDNEYS/BLADDER: No renal calculi or hyd ronephrosis. 10 x 8 mm calcification right UVJ region and 12 x 10 mm calcification left UVJ region, unchanged. No ureteral dilatation. BOWEL: Normal appendix. LYMPH NODES: Normal. VASCULATURE: Unremarkable. PELVIC ORGANS: Diffusely enlarged and hy peremic uterus compatible with state. MUSCULOSKELETAL: Normal. IMPRESSION: 1. No evidence for pulmonary emboli. 2. No evidence for acute pulmonary disea se. 3. Enlarged and hyperemic shena lavinia. 4. Large calcifications right and left U VJ regions are unchanged. No ureteral dilatation and possibly located within ureteroceles. 5. Hepatomegaly. 6. Small esophageal hiatal hernia. Francois Caputo PA-C IMG CT ORDERABLES (ABNORMAL) UA with Microscopic reflex to Culture (01/18/2021 6:05 PM CDT) [facility] Method Time Signature Color Urine Yellow Colorless, 01/18/2021 LABORATORY Straw, 6:29 PM CDT Light Yellow, Yellow Appearance Urine Clear Clear 01/18/2021 RH LABORATOR Y 6:29 PM CDT Glucose Urine Negative Negative 01/18/2021 LABORATORY mg/dL 6:29 PM CDT Bilirubin Urine Negative Negative 01/18/2021 LABORATORY 6:29 PM CDT Ketones Urine 10 (A) Negative 01/18/2021 LABORATORY mg/dL 6:29 PM CDT Specific Mccamey 1.016 1.003 - 01/18/2021 RH LABORATOR Y Urine 1.035 6:29 PM CDT Blood Urine Moderate Negative 01/18/2021 LABORATORY (A) 6:29 PM CDT pH Urine 5.5 5.0 - 7.0 01/18/2021 RH LABORATORY 6:29 PM CDT Protein Albumin Negative Negative 01/18/2021 LABORATORY Urine mg/dL 6:29 PM CDT Urobilinogen Normal Normal, 2.0 01/18/2021 LABORATORY Urine mg/dL 6:29 PM CDT Nitrite Urine Negative Negative 01/18/2021 RH LABORATORY 6:29 PM CDT Leukocyte Trace (A) Negative 01/18/2021 RH LABORATORY Esterase Urine 6:29 PM CDT Bacteria Urine Few (A) None Seen 01/18/2021 RH LABORATORY /HPF 6:29 PM CDT Mucus Urine Present (A) None Seen 01/18/2021 RH LABORATORY /LPF 6:29 PM CDT RBC Urine 31 (H) <=2 /HPF 01/18/2021 RH LABORATORY 6:29 PM CDT WBC Urine 9 (H) <=5 /HPF 01/18/2021 RH LABORATORY 6:29 PM CDT Squamous 1 <=1 /HPF 01/18/2021 RH LABORATORY Epithelials 6:29 PM CDT Urine Specimen Anatomical Collection Method Collection Time Receive d Time (Source) Location / / Volume Laterality Urine MID-STREAM URINE Non-blood 01/18/2021 6:05 PM 01/18 6:12 SPECIMEN / Unknown Collection / CDT PM CDT Unknown Narrative LABORATORY - 01/18/2021 6:29 PM CDT Urine Culture not indicated Urine Culture not indicated Francois Caputo PA-C LAB - URINE ORDERABLES Performing Organization Address City/State/ZIP Code [place] [phone] Care Lab [address] Lab (1st floor, no room number) (ABNORMAL) D dimer quantitative (01/18/2021 4:39 PM CDT) [facility] Method Time Signature D-Dimer 0.61 (H) 0.00 - 01/18/2021 LABORATORY Quantitative 0.50 5:11 PM CDT ug/mL FEU Specimen Anatomical Collection Method Collection Time Receive d Time (Source) Location / / Volume Laterality Blood STRUCTURE OF LEFT VAD(CVC, PICC) / 01/18/2021 4:39 PM 01/18/2021 4:57 UPPER LIMB / Unknown CDT PM CDT Unknown Narrative LABORATORY - 01/18/2021 5:11 PM CDT This D-dimer assay is intended for use i n conjunction with a clinical pretest probability assessment model to exclude pulmonary embolism (PE) and deep venous thrombosis (DVT) in outpatients suspecte d of PE or DVT. The cut-off value is 0.50 ug/mL FEU. Francois Caputo PA-C LAB - BLOOD ORDERABLES Performing Organization Address City/[facility]/[place] [address] Care Lab [address] Lab (1st floor, no room number) Extra Purple Top Tube (01/18/2021 4:38 PM CDT) P athologist Signature Hold Specimen JI 01/18/2021 RH LABORATORY 6:01 PM CDT Specimen Anatomical Collection Method Collection Time Receive d Time (Source) Location / / Volume Laterality Blood STRUCTURE OF LEFT VAD(CVC, PICC) / 01/18/2021 4:38 PM 01/18/2021 4:57 UPPER LIMB / Unknown CDT PM CDT Unknown Francois Caputo PA-C LAB - BLOOD ORDERABLES Performing Organization Address City/[facility]/[place] [address] Care Lab [address] Lab (1st floor, no room number) Extra Green Top ([place] Heparin) Tube (01/18/2021 4:38 PM CDT) athologist Signature Hold Specimen JIC 01/18/2021 RH LABORATORY 6:01 PM CDT Specimen Anatomical Collection Method Collection Time Receive d Time (Source) Location / / Volume Laterality Blood STRUCTURE OF LEFT VAD(CVC, PICC) / 01/18/2021 4:38 PM 01/18/2021 4:57 UPPER LIMB / Unknown CDT PM CDT Unknown Francois Caputo PA-C LAB - BLOOD ORDERABLES Performing Organization Address City/[facility]/[place] [address] Care Lab [address] Lab (1st floor, no room number) Extra Red Top Tube (01/18/2021 4:38 PM CDT) P athologist Signature Hold Specimen JIC 01/18/2021 RH LABORATORY 6:01 PM CDT Specimen Anatomical Collection Method Collection Time Receive d Time (Source) Location / / Volume Laterality Blood STRUCTURE OF LEFT VAD(CVC, PICC) / 01/18/2021 4:38 PM 01/18/2021 4:57 UPPER LIMB / Unknown CDT PM CDT Unknown Francois Caputo PA-C LAB - BLOOD ORDERABLES Performing Organization Address City/State/ZIP Code [place] [address] Care Lab [address] Lab (1st floor, no room number) (ABNORMAL) CBC with platelets and differential (01/18/2021 4:38 PM CDT) Patholo gist Method Time Signature WBC Count 6.8 4.0 - 01/18/2021 RH LABORATORY 11.0 5:01 PM CDT 10e3/uL RBC Count 3.74 (L) 3.80 - 01/18/2021 RH LABORATORY 5.20 5:01 PM CDT 10e6/uL Hemoglobin 9.7 (L) 11.7 - 01/18/2021 RH LABORATORY 15.7 g/dL 5:01 PM CDT Hematocrit 31.1 (L) 35.0 - 01/18/2021 RH LABORATORY 47.0 % 5:01 PM CDT MCV 83 78 - 100 01/18/2021 RH LABORATORY fL 5:01 PM CDT MCH 25.9 (L) 26.5 - 01/18/2021 RH LABORATORY 33.0 pg 5:01 PM CDT MCHC 31.2 (L) 31.5 - 01/18/2021 RH LABORATORY 36.5 g/dL 5:01 PM CDT RDW 14.0 10.0 - 01/18/2021 RH LABORATORY 15.0 % 5:01 PM CDT Platelet Count 227 150 - 450 01/18/2021 RH LABORATORY 10e3/uL 5:01 PM CDT % Neutrophils 64 % 01/18/2021 RH LABORATORY 5:01 PM CDT % Lymphocytes 25 % 01/18/2021 RH LABORATORY 5:01 PM CDT % Monocytes 6 % 01/18/2021 RH LABORATORY 5:01 PM CDT % Eosinophils 3 % 01/18/2021 RH LABORATORY 5:01 PM CDT % Basophils 1 % 01/18/2021 RH LABORATORY 5:01 PM CDT % Immature 1 % 01/18/2021 RH LABORATORY Granulocytes 5:01 PM CDT NRBCs per 100 0 <1 /100 01/18/2021 RH LABORATORY WBC 5:01 PM CDT Absolute 4.4 1.6 - 8.3 01/18/2021 RH LABORATORY Neutrophils 10e3/uL 5:01 PM CDT Absolute 1.7 0.8 - 5.3 01/18/2021 RH LABORATORY Lymphocytes 10e3/uL 5:01 PM CDT Absolute 0.4 0.0 - 1.3 01/18/2021 RH LABORATORY Monocytes 10e3/uL 5:01 PM CDT Absolute 0.2 0.0 - 0.7 01/18/2021 RH LABORATORY Eosinophils 10e3/uL 5:01 PM CDT Absolute 0.0 0.0 - 0.2 01/18/2021 RH LABORATORY Basophils 10e3/uL 5:01 PM CDT Absolute 0.0 <=0.0 01/18/2021 RH LABORATORY Immature 10e3/uL 5:01 PM CDT Granulocytes Absolute NRBCs 0.0 10e3/uL 01/18/2021 RH LABORATORY 5:01 PM CDT Specimen Anatomical Collection Method Collection Time Receive d Time (Source) Location / / Volume Laterality Blood STRUCTURE OF LEFT VAD(CVC, PICC) / 01/18/2021 4:38 PM 01/18/2021 4:57 UPPER LIMB / Unknown CDT PM CDT Unknown Francois Caputo PA-C LAB - BLOOD ORDERABLES Performing Organization Address City/State/ZIP Code [place] [phone] Care Lab [address] Lab (1st floor, no room number) CK total (01/18/2021 4:38 PM CDT) P athologist Signature CK 102 30 - 225 U/L 01/18/2021 RH LABORATORY 5:28 PM CDT Specimen Anatomical Collection Method Collection Time Receive d Time (Source) Location / / Volume Laterality Blood STRUCTURE OF LEFT VAD(CVC, PICC) / 01/18/2021 4:38 PM 01/18/2021 4:57 UPPER LIMB / Unknown CDT PM CDT Unknown Francois Caputo PA-C LAB - BLOOD ORDERABLES Performing Organization Address City/[facility]/ZIP Code [place] [address] Care Lab [address] Lab (1st floor, no room number) Nt probnp inpatient (BNP) (01/18/2021 4:38 PM CDT) athologist Signature N terminal Pro 19 0 - 450 01/18/2021 LABORATORY BNP Inpatient pg/mL 5:18 PM CDT Comment: Reference range shown and results flagge d as abnormal are suggested inpatient cut points for confirming diagnosis if CHF in an acute setting. Establishing a baseline value for each individual patient is useful for follow-up. An inpatient or e mergency department NT-proPBNP <300 pg/mL effectively rules out acute CHF, with 99% negative predictive value. The outpatient non-acute reference range for ruling out CHF is: 0-125 pg/mL (age 18 to less than 75) 0-450 pg/mL (age 75 yrs and older) Specimen Anatomical Collection Method Collection Time Receive d Time (Source) Location / / Volume Laterality Blood STRUCTURE OF LEFT VAD(CVC, PICC) / 01/18/2021 4:38 PM 01/18/2021 4:57 UPPER LIMB / Unknown CDT PM CDT Unknown Francois Caputo PA-C LAB - BLOOD ORDERABLES Performing Organization Address City/[facility]/ZIP Code [place] [address] Care Lab [address] Lab (1st floor, no room number) Troponin I (01/18/2021 4:38 PM CDT) athologist Signature Troponin I <0.015 0.000 - 01/18/2021 LABORATORY 0.045 ug/L 5:18 PM CDT Comment: The 99th percentile for upper r eference range is 0.045ug/L. Troponin values in the range of 0.045 - 0.120 ug/L may b e associated with risks of adverse clinical events. Specimen Anatomical Collection Method Collection Time Receive d Time (Source) Location / / Volume Laterality Blood STRUCTURE OF LEFT VAD(CVC, PICC) / 01/18/2021 4:38 PM 01/18/2021 4:57 UPPER LIMB / Unknown CDT PM CDT Unknown Francois Caputo PA-C LAB - BLOOD ORDERABLES Performing Organization Address City/[facility]/[place] [address] Care Lab [address] Lab (1st floor, no room number) (ABNORMAL) Lactic acid whole blood (01/18/2021 4:38 PM CDT) P athologist Signature Lactic Acid 0.6 (L) 0.7 - 2.0 01/18/2021 RH LABORATORY mmol/L 5:09 PM CDT Specimen Anatomical Collection Method Collection Time Receive d Time (Source) Location / / Volume Laterality Blood STRUCTURE OF LEFT VAD(CVC, PICC) / 01/18/2021 4:38 PM 01/18/2021 4:57 UPPER LIMB / Unknown CDT PM CDT Unknown Francois Caputo PA-C LAB - BLOOD ORDERABLES Performing Organization Address [facility]/ZIP [facility] [place] [address] Care Lab [address] Lab (1st floor, no room number) (ABNORMAL) Comprehensive metabolic panel (01/18/2021 4:38 PM CDT) Patholo gist Method Time Signature Sodium 139 133 - 144 01/18/2021 RH LABORATORY mmol/L 5:28 PM CDT Potassium 3.8 3.4 - 5.3 01/18/2021 RH LABORATORY mmol/L 5:28 PM CDT Chloride 106 94 - 109 01/18/2021 RH LABORATORY mmol/L 5:28 PM CDT Carbon Dioxide 26 20 - 32 01/18/2021 RH LABORATORY (CO2) mmol/L 5:28 PM CDT Anion Gap 7 3 - 14 01/18/2021 RH LABORATORY mmol/L 5:28 PM CDT Urea Nitrogen 9 7 - 30 01/18/2021 LABORATORY mg/dL 5:28 PM CDT Creatinine 0.71 0.52 - 01/18/2021 RH LABORATORY 1.04 mg/dL 5:28 PM CDT Calcium 8.9 8.5 - 10.1 01/18/2021 LABORATORY mg/dL 5:28 PM CDT Glucose 73 70 - 99 01/18/2021 LABORATORY mg/dL 5:28 PM CDT Alkaline 110 40 - 150 01/18/2021 LABORATORY Phosphatase U/L 5:28 PM CDT AST 18 0 - 45 U/L 01/18/2021 RH LABORATORY 5:28 PM CDT ALT 26 0 - 50 U/L 01/18/2021 LABORATORY 5:28 PM CDT Protein Total 6.6 (L) 6.8 - 8.8 01/18/2021 LABORATORY g/dL 5:28 PM CDT Albumin 2.8 (L) 3.4 - 5.0 01/18/2021 LABORATORY g/dL 5:28 PM CDT Bilirubin Total 0.2 0.2 - 1.3 01/18/2021 LABORATORY mg/dL 5:28 PM CDT GFR Estimate >90 >60 01/18/2021 LABORATORY mL/min/1.7 5:28 PM CDT 3m2 Comment: As of January 18, 2021, eGFR is ca lculated by the CKD-EPI creatinine equation, without race adjustment. eGFR can be inf luenced by muscle mass, exercise, and diet. The reported eGFR is an estimation only and is only applicable if the renal function is stable. Specimen Anatomical Collection Method Collection Time Receive d Time (Source) Location / / Volume Laterality Blood STRUCTURE OF LEFT VAD(CVC, PICC) / 01/18/2021 4:38 PM 01/18/2021 4:57 UPPER LIMB / Unknown CDT PM CDT Unknown Francois Caputo PA-C LAB - BLOOD ORDERABLES Performing Organization Address City/State/ZIP Code [place] [address] Care Lab [address] Lab (1st floor, no room number) EKG 12-lead, tracing only (01/18/2021 3:45 PM CDT) [facility] gist Method Time Signature Interpretation ECG Click View RADIOLOGY Image link RESULTS to view waveform and result Specimen Anatomical Collection Method Collection Time Receive d Time (Source) Location / / Volume Laterality 01/18/2021 3:45 PM 7:03 CDT AM CDT Francois Caputo PA-C ECG ORDERABLES Performing Organization Address City/State/ZIP Code Phon e Number RADIOLOGY RESULTS documented in this encounter Visit Diagnoses Diagnosis Chest pain Chest pain, unspecified Left flank pain Abdominal pain, unspecified site Myalgia Mylagia and myositis, unspecified Abdominal pain, generalized Dysuria documented in this encounter Administered Medications Inactive Administered Medications - up to 3 most recent administrations Medication Order MAR Action Action Date Dose Rate Site 0.9% sodium chloride BOLUS New Bag 01/18/2021 5:13 PM CDT 1,000 mLs 2000 mL/hr Intravenous, 1,000 mL, ONCE, at 2,000 mL/hr, Administer over 30 Minutes, On 01/18/21 at 1620, For 1 dose acetaminophen (TYLENOL) tablet 1,000 mg Given 01/18/2021 5:12 PM CDT 1,000 mg 1,000 mg, Oral, ONCE, On 01/18/21 at 1620, For 1 dose, Maximum acetaminophen dose from all sources = 75 mg/kg/day not to exceed 4 gram iopamidol (ISOVUE-370) solution 500 mL Given 01/18/2021 6:52 PM CDT 68 mLs 500 mL, Intravenous, ONCE, On 01/18/21 at 1725, For 1 dose sodium chloride 0.9 % bag 500mL for CT scan Given 01/18/2021 6:52 PM CDT 72 mLs flush use As instructed, 100 mL, ONCE, On 01/18/21 at 1725, For 1 dose, This entry is for use by Radiology to intermittently used as a flush in patients receiving a CT scan. documented in this encounter Active and Recently Administered Medications Times are shown in CDT. Scheduled Medication Order 01/16/2021 01/17/2021 01/18/2021 0.9% sodium chloride BOLUS (COMPLETED) 9145 (New Bag - Provider: Reta Price RN)2136 (Stopped - Provider: Reta Price, RN) Intravenous, 1,000 mL, ONCE, at 2,000 mL /hr, Administer over 30 Minutes, On 01/18/21 at 1620, For 1 dose acetaminophen (TYLENOL) tablet 1,000 mg (COMPLETED) 1711 (Given - Provider: Reta Price, RN) 1,000 mg, Oral, ONCE, On 01/18/21 at 1620, For 1 dose, Maximum acetaminophen dose from all sources = 75 mg/kg/day not to exceed 4 gram iopamidol (ISOVUE-370) solution 500 mL (COMPLETED) 1851 (Given - Provider: Anjali Mckeon) 500 mL, Intravenous, ONCE, On 01/18/21 at 1725, For 1 dose ondansetron (ZOFRAN) injection 4 mg 1712 (Not Given - Provider: Reta Price RN - Reason: Patient/family refused) 4 mg, Intravenous, ONCE, Administer over 2-5 Minutes, On 01/18/21 at 1620, For 1 dose, Irritant. For ordered IV doses 0.1-4 mg, give IV Push undiluted over 2-5 minutes. sodium chloride 0.9 % bag 500mL for CT scan flush use (COMPLETED ) 1851 (Given - Provider: Anjali Mckeon) As instructed, 100 mL, ONCE, On Sun 01/18 at 1725, For 1 dose, This entry is for use by Radiology to intermittently used as a flush in patients receiving a CT scan. documented in this encounter Additional Health Concerns Assessment Noted Time PHQ-9 Depression Total Score: 6 09/29/2020 3:25 PM CDT documented as of this encounter Care Teams Pulp Operator Relationship Specialty Start Date End Date Marija Edgar APRN PCP - General Nurse Practitioner 04/30/20 [facility] [address] [address] [place] [address] Lita Oseguera Personal Advocate & 02/28/20 Liaison (PAL) Chanelle Mccann Assigned OBGYN Provider 05/02/20 05/09/21 ARLENE Mooney [facility] [id number] [address] [address] [place] [address] Kyara De La Fuente, VJ Specialty Care Neurology 06/04/20 03/05/21 Coordinator Marija Edgar APRN Assigned PCP 06/08/20 [address] [id number] [place], [place] [id number] Mynor Broussard MD Assigned Surgical 06/01/20 11/28/[address] [place] Provider [address] [id number] Mauri, Melody Neuroscience 06/04/20 MD Keisha Provider [address] [place], [place] [phone] Galo Burrell MD Assigned Heart and 10/05/20 04/02/[address] Vascular Provider [address] [place] [id number] documented as of this encounter
--- OUTSIDE RECORDS SUMMARY | 2022-04-28 01:15 | XMS_ITS | Encounter Summary ---
:2000 Author Organization [facility] Address [address] [place] [address]. [place] [address] Care Team Providers Name Role Phone Lita Oseguera Unavailable Unavailable Marija Edgar APRN DEVELOPMENT COORDINATOR Primary Care Provider [phone] Chanelle Mccann APRN CNM Unavailable + Kyara De La Fuente RN Unavailable Marija Edgar APRN DEVELOPMENT COORDINATOR Unavailable Mynor Broussard MD Unavailable Keisha Dotson MD Unavailable Galo Burrell MD Unavailable Reason for Visit Reason Comments Consult Encounter Details Date Type Department Care Team Description 01/16/2021 Office Visit [facility] Rosio Oliver Dysuria (Primary Dx); Urgent Care Tiago Estrada MD Perineal laceration during delivery, uns pecified degree of tear; [address] hemorrhage, [place] [address] Social History Tobacco Use Types Packs/Day Years [...] How often do you attend moravian or lutheran services? Never 09/22/2021 Do you [...] been in contact with No / Unsure 01/16/2021 7:43 PM CDT someone who was confirmed or suspected to have Coronavirus / COVID-19? documented as of this encounter Last Filed Vital Signs Vital Sign Reading Time Taken Comments Blood Pressure 100/60 01/16/2021 7:52 PM CDT Pulse 79 01/16/2021 7:52 PM CDT Temperature 37.2 ??C (99 ??F) 01/16/2021 7:52 PM CDT Respiratory Rate 16 01/16/2021 7:52 PM CDT Oxygen Saturation 98% 01/16/2021 7:52 PM CDT Inhaled Oxygen Concentration - - Weight 94.3 kg (207 lb 14.4 oz) 01/16/2021 7:52 PM CDT Height - - Body Mass Index 33.56 01/11/2021 3:47 PM CDT documented in this encounter Progress Notes Rosio Oliver MD - 01/16/2021 7:45 PM CDT ASSESSMENT/ PLAN: Dysuria - amoxicillin (AMOXIL) 875 MG tablet; Take 1 tablet (875 mg) by mouth 2 times daily for 10 days Did not take urine sample due to persistent blood and vaginal discharge in the urine- She is concerned about burning sensation with urination that is new in the past day. She is concerned about UTI. Was given Rx of amoxicillin printed. She will monitor her urinary symptoms, if increasing suprapubic pain, Pain in the urethra she should start the antibiotic Drink plenty of fluids. Prevention and treatment of UTI's discussed.Signs and symptoms of pyelonephritis mentioned. Follow up with primary care physician if not improving Perineal laceration during delivery, unspecified degree of tear hemorrhage, unspecified type On perineal examination, Stitches in 6 o'clock position with local tenderness and swelling . Left vaginal lip with a 4 x 4 cm bruise/ shallow hematoma Continued vaginal bleeding mild, maroon Discussed cleaning the perineum with a squirt bottle with warm water and dabbing with toilet paper. Keep area clean and dry as much as possible. Discussed that urine flowing over her stitches can cause some burning, and is not sign of infection,But with good cleaning with warm water risk of infection is decreased. She is curious about her hgb. She is not light-headed or weak. She said her pre- discharge hgb was 9.2. We discussed she clinically does not seem to need transfusion and her vaginal bleeding is not excessive. She understood that hgb. Check is not needed now- Encouraged her to continue with her iron pills given at discharge from the hospital. SUBJECTIVE: Chief Complaint Patient presents with ??? Consult Kim Johnson is a 20 year old female who presents today for a possible UTI. Symptoms of dysuria and burning have been going on for 1day(s). Hematuria yes - Post bleeding. sudden onset and still presentand mild. There is no history of fever, chills, nausea or vomiting. Blood vaginal Discharge, no noted purulence. This patient does not have a history of urinary tract infections. Patient denies long duration, rigors, flank pain, temperature > 101 degrees F. and Vomiting, significant nauseaor diarrhea or vaginal odor and vaginal itching She is 3 days post . Has passed 2 medium large clots, now with mild persistent bleeding. Concerned if her perineal stitches are infected, Concern about anemia Past Medical History: Diagnosis Date ??? Anxiety ??? Chronic kidney disease stones, history of infections ??? Depressive disorder ??? Gastroesophageal reflux disease ??? Psoriasis ??? Seizure (H) 05/02/2019 no seizure since 2017 ??? SVT (supraventricular tachycardia) (H) Patient Active Problem List Diagnosis ??? Seizure (H) ??? Depressed ??? Anxiety ??? Tobacco abuse counseling ??? Psoriasis ??? Head ache ??? Right ureteral stone ??? Left ureteral stone ??? Asthma ??? KALYN (generalized anxiety disorder) ??? Encounter for triage in patient ??? Term ALLERGIES: Patient has no known allergies. MEDs levETIRAcetam (KEPPRA) 500 MG tablet, Take 1 tab twice a day for 1 week and then 1 1/2 tabs twice a day (Patient taking differently: Take 500 mg by mouth daily 1 tab once a day) metoprolol succinate ER (TOPROL-XL) 25 MG 24 hr tablet, Take 1 tablet (25 mg) by mouth daily omeprazole (PRILOSEC) [address] capsule, Take 1 capsule (40 mg) by mouth daily Vit-Fe Fumarate-FA ( MULTIVITAMIN W/IRON) 27-0.8 MG tablet, Take 1 tablet by mouth daily sertraline (ZOLOFT) 100 MG tablet, TAKE ONE AND ONE-HALF TABLETS BY MOUTH EVERY DAY No current facility-administered medications on file prior to visit. Social History Tobacco Use ??? Smoking status: Former Smoker Packs/day: 1.00 Types: Other Quit date: 12/07/2019 Years since quittin.1 ??? Smokeless tobacco: Never Used Substance Use Topics ??? Alcohol use: Not Currently Frequency: Never Drinks per session: Patient refused Binge frequency: Never Family History Problem Relation Age of Onset ??? Heart Disease Maternal Grandfather ??? Brain Tumor Sister ROS: CONSTITUTIONAL:NEGATIVE for fever, chills, INTEGUMENTARY/SKIN: NEGATIVE for worrisome rashes or lesions EYES: NEGATIVE for vision changes or irritation ENT/MOUTH: NEGATIVE for ear, mouth and throat problems RESP:NEGATIVE for significant cough or SOB OBJECTIVE: BP 100/60 (BP Location: Right arm, Patient Position: Chair, Cuff Size: Adult Large) Pulse 79 Temp 99 ??F (37.2 ??C) (Oral) Resp 16 Wt 94.3 kg (207 lb 14.4 oz) LMP 04/29/2020 SpO2 98% Yes BMI 33.56 kg/m?? GENERAL APPEARANCE: healthy, alert and no distress RESP: lungs clear to auscultation - no rales, rhonchi or wheezes CV: regular rates and rhythm, normal S1 S2, no murmur noted ABDOMEN: soft, nontender, no HSM or masses and bowel sounds normal BACK: No CVA tenderness SKIN: no suspicious lesions or rashes - Perineum with Swelling and bruising of vaginal lips, 6 o'clock about 5 stitches, intact, tender with local swelling. Mild amount of maroon blood draining from the vagina. documented in this encounter Plan of Treatment Upcoming Encounters Date Type Specialty Care Team Description 04/28/2022 Office Visit Family Practice Anthony Doe PA-C [address] [place], [place] [phone] (Jefferson carlson) 05/03/2022 Office Visit Dermatology Neil Kent M D [address] [place] [address] (Jefferson carlson) 05/05/2022 Office Visit Optometry Yeny David, OD [address] [facility] [address] [place] [phone] (Wo rk) 05/11/2022 Virtual Visit Pharm D Diana Desir , [facility] [address] [place], [place] [address] (Wo rk) 05/14/2022 Office Visit Cardiology Livan Sharif MD [address] [facility] [address] [place], [place] [address] (Wo rk) 05/31/2022 Office Visit Family Practice Valery Veronica PA-C [address] [place], [place] [address] (Wo rk) documented as of this encounter Visit Diagnoses Diagnosis Dysuria - Primary Perineal laceration during delivery, uns pecified degree of tear hemorrhage, unspecified type documented in this encounter Additional Health Concerns Assessment Noted Time PHQ-9 Depression Total Score: 6 09/29/2020 3:25 PM CDT documented as of this encounter Care Teams Hot Dip Plater Relationship Specialty Start Date End Date Marija Edgar APRN PCP - General Nurse Practitioner 04/30/20 DEVELOPMENT COORDINATOR [address] [place], [place] [phone] Lita Oseguera Personal Advocate & 02/28/20 Liaison (PAL) Chanelle Mccann Assigned OBGYN Provider 05/02/20 05/09/21 [place] [address] [address] [facility] [[email or web address] [address] [place] [address] Kyara De La Fuente, VJ Specialty Care Neurology 06/04/20 03/05/21 Coordinator Marija Edgar APRN Assigned PCP 06/08/20 DEVELOPMENT COORDINATOR [address] [place] [address] Mynor Broussard MD Assigned Surgical 06/01/20 11/28/21 [address] DANNI Provider [address] [place] [address] Mauri, Assigned Neuroscience 06/04/20 MD Keisha Provider [address]09 [place], [place] [address] Galo Burrell MD Assigned Heart and 10/05/20 04/02/22 [address] Vascular Provider [address] [place] [address] documented as of this encounter
--- OUTSIDE RECORDS SUMMARY | 2022-04-28 01:15 | XMS_ITS | Encounter Summary ---
:2000 Author Organization [facility] Address [address] [place] [address] Care Team Providers Name Role Phone Lita Oseguera Unavailable Unavailable Marija Edgar APRN CREPE SOLE SCOURER Primary Care Provider [phone] Chanelle Mccann APRN CNM Unavailable + Kyara De La Fuente RN Unavailable Marija Edgar APRN CREPE SOLE SCOURER Unavailable Mynor Broussard MD Unavailable Keisha Dotson MD Unavailable Galo Burrell MD Unavailable Encounter Details Date Type Department Care Team Description 01/21/2021 Encounter Social History Tobacco Use Types Packs/Day Years [...] often do you attend latter day or sikh services? Never 09/22/2021 Do you [...] documented as of this encounter Miscellaneous Notes Note - Libra Gonzalez RN - 01/21/2021 7:45 AM CDT This note was copied from a baby's chart. spoke with primary nurse, Amaris, regarding 's status this morning. services has seen /mother during stay, and offered services today if primary nurse or mother would like LC visit. At this time, primary nurse will contact if further services required prior to discharge. documented in this encounter Plan of Treatment Upcoming Encounters Date Type Specialty Care Team Description 04/28/2022 Office Visit Family Practice Anthony Doe, [address] [address] [place] [address] (Wo rk) 05/03/2022 Office Visit Dermatology Neil Kent M D 500 [place] [address] (Wo rk) 05/05/2022 Office Visit Optometry Yeny David, OD [address] [facility] [place] [address] (Wo rk) 05/11/2022 Virtual Visit Pharm D Diana Desir , [facility] [address] [place], [place] [address] (Wo rk) 05/14/2022 Office Visit Cardiology Livan Sharif MD [address] [facility] [address] [place], [place] [address] (Wo rk) 05/31/2022 Office Visit Family Practice Valery Veronica , PA-C [address] [place] [phone] (Wo rk) documented as of this encounter Visit Diagnoses Not on filedocumented in this encounter Additional Health Concerns Assessment Noted Time PHQ-9 Depression Total Score: 6 09/29/2020 3:25 PM CDT documented as of this encounter Care Teams Private Mortgage Banker Safe Relationship Specialty Start Date End Date Marija Edgar APRN PCP - General Nurse Practitioner 04/30/20 CREPE SOLE SCOURER [address] [place] [address] Lita Oseguera Personal Advocate & 02/28/20 Liaison (PAL) Chanelle Mccann Assigned OBGYN Provider 05/02/20 05/09/21 [place] [address] [address] [address] [place], [place] [address] Kyara De La Fuente, VJ Specialty Care Neurology 06/04/20 03/05/21 Coordinator Marija Edgar APRN Assigned PCP 06/08/20 CREPE SOLE SCOURER [address] [place] [place], [place] [phone] Mynor Broussard MD Assigned Surgical 06/01/20 11/28/21 [address] DANNI Provider [address] [place] [id number] Mauri, Melody Neuroscience 06/04/20 MD Keisha Provider [address] [place], [place] [address] Galo Burrell MD Assigned Heart and 10/05/20 04/02/22 [address] Vascular Provider [address] [place] [address] documented as of this encounter
--- OUTSIDE RECORDS SUMMARY | 2022-04-28 01:15 | XMS_ITS | Encounter Summary ---
:2000 Author Organization [facility] Address [address] [place] [address]. [place] [address] Care Team Providers Name Role Phone Lita Oseguera Unavailable Unavailable Marija Edgar APRN MOUNTAIN OR GLACIER GUIDE Primary Care Provider [phone] Chanelle Mccann APRN CNM Unavailable + Kyara De La Fuente RN Unavailable Marija Edgar APRN MOUNTAIN OR GLACIER GUIDE Unavailable Mynor Broussard MD Unavailable Keisha Dotson MD Unavailable Galo Burrell MD Unavailable Reason for Visit Reason Onset Date Comments Refill Request 02/04/2021 sertraline (ZOLOFT) 100 MG tablet Encounter Details Date Type Department Care Team Description 02/04/2021 Refill M [facility] Marija Edgar, Refill Request [place] ARLENE MOUNTAIN OR GLACIER GUIDE (sertraline (ZOLOFT) 100 [address] [facility] [address] MG tablet) [place] [address] [phone] (Wo rk) Social History Tobacco Use Types [...] week 09/22/2021 How often do you attend denominational or catholic services? Never 09/22/2021 Do you belong to any clubs or organizations such as No 09/22/2021 denominational groups, unions, fraternal or athletic groups, or [...] this encounter Miscellaneous Notes Telephone Encounter - Asiya Reddy RN - 02/05/2021 1:58 PM CDT Images from the original note were not included. Routing refill request to provider for review/approval because: SSRIs Protocol [id number]/04/2021 12:15 PM No positive test in last 12 months Asiya Fedderly, RN Telephone Encounter - Trang Ebony - 02/04/2021 12:11 PM CDT Informed the pt an appointment may be needed, pt understands and will await a call back if appt needed. No further questions at this time. Ebonylincoln Costello on 02/04/2021 at 12:14 PM documented in this encounter Plan of Treatment Upcoming Encounters Date Type Specialty Care Team Description 04/28/2022 Office Visit Family Practice Anthony Doe, PAUcheC [address] [place], [place] [phone] (Wo rk) 05/03/2022 Office Visit Dermatology Neil Kent M D 500 [place] [address] (Wo rk) 05/05/2022 Office Visit Optometry Yeny David, OD [address] [facility] [address] [place] [phone] (Wo rk) 05/11/2022 Virtual Visit Pharm D Diana Desir , [facility] [address] [place], [place] [address] (Wo rk) 05/14/2022 Office Visit Cardiology Livan Sharif MD [address] , [facility] [address] [place], [place] [address] (Wo rk) 05/31/2022 Office Visit Family Practice Valery Veronica , PAUcheC [address] [place], [place] [address] (Wo rk) documented as of this encounter Visit Diagnoses Diagnosis Anxiety Anxiety state, unspecified documented in this encounter Additional Health Concerns Assessment Noted Time PHQ-9 Depression Total Score: 6 09/29/2020 3:25 PM CDT documented as of this encounter Care Teams Greenhouse Technician Relationship Specialty Start Date End Date Marija Edgar APRN PCP - General Nurse Practitioner 04/30/20 MOUNTAIN OR GLACIER GUIDE [address] [place] [address] Lita Oseguera Personal Advocate & 02/28/20 Liaison (PAL) Chanelle Mccann Assigned OBGYN Provider 05/02/20 05/09/21 [place] [address] [address] [facility], [facility] [address] [place], [place] [address] Kyara De La Fuente RN Specialty Care Neurology 06/04/20 03/05/21 Coordinator Marija Edgar APRN Assigned PCP 06/08/20 MOUNTAIN OR GLACIER GUIDE [address] [place] [address] Mynor Broussard MD Assigned Surgical 06/01/20 11/28/21 [address] DANNI Provider [address] [place] [address] Mauri, Assigned Neuroscience 06/04/20 MD Keisha Provider [address] [place], [place] [address] Galo Burrell MD Assigned Heart and 10/05/20 04/02/22 [address] Vascular Provider [address] [place] [address] documented as of this encounter
--- OUTSIDE RECORDS SUMMARY | 2022-04-28 01:15 | XMS_ITS | Encounter Summary ---
:2000 Author Organization [facility] Address [address] [place] [address]. [place] [address] Care Team Providers Name Role Phone Lita Oseguera Unavailable Unavailable Marija Edgar APRN MAILROOM MANAGER Primary Care Provider Chanelle Mccann APRN CNM Unavailable + Kyara De La Fuente RN Unavailable Marija Edgar APRN MAILROOM MANAGER Unavailable Mynor Broussard MD Unavailable Keisha Dotson MD Unavailable Galo Burrell MD Unavailable Cristina Wood Unavailable Unavailable Reason for Visit Reason Onset Date Comments Panel Management 02/06/2021 Encounter Details Date Type Department Care Team Description 02/06/[address] [facility] Marija Edgar APRN Panel Management [address] [address] [phone] (Wo rk) Social History Tobacco Use Types [...] week 09/22/2021 How often do you attend zoroastrian or mandaeism services? Never 09/22/2021 Do you belong to any clubs or organizations such as No 09/22/2021 zoroastrian groups, unions, fraternal or athletic groups, or [...] this encounter Miscellaneous Notes Telephone Encounter - Ryan Hayes - 02/27/2021 4:32 PM CDT Patient Quality Outreach 2nd Attempt Summary: Type of outreach: Sent letter. Next Steps: Reach out within 90 days via Phone. Max number of attempts reached: Yes. Will try again in 90 days if patient still on fail list. Questions for provider review: None MAG AlexandraNE Chart routed to Care Team. Telephone Encounter - Ryan Hayes - 02/06/2021 2:09 PM CDT Patient Quality Outreach Summary: Patient has the following on her problem list/HM: Depression / Dysthymia review 6 Month Remission: 4-8 month window range: 12 Month Remission: 10-14 month window range: PHQ-9 SCORE 06/04/2020 06/24/2020 09/29/2020 PHQ-9 Total Score MyChart - 9 (Mild depression) 6 (Mild depression) PHQ-9 Total Score 9 9 6 If PHQ-9 recheck is 5 or more, route to provider for next steps. Asthma review ACT Total Scores 06/24/2020 ACT TOTAL SCORE (Goal Greater than or Equal to 20) 25 In the past 12 months, how many times did you visit the emergency room for your asthma without beingadmitted to the hospital? 0 In the past 12 months, how many times were you hospitalized overnight because of your asthma? 0 Patient is due/failing the following: ACT needed and PHQ-9 Needed Type of outreach: Sent [employer] message. Questions for provider review: None Ryan Stanton [facility] Chart routed to Care Team. documented in this encounter Plan of Treatment Upcoming Encounters Date Type Specialty Care Team Description 04/28/2022 Office Visit Family Practice Anthony Doe, PAUcheC [address] [place], [place] [phone] (Wo rk) 05/03/2022 Office Visit Dermatology Neil Kent M D [address] [place], [place] [address] (Wo rk) 05/05/2022 Office Visit Optometry Yeny David, OD [address] [facility] [place] [address] (Wo rk) 05/11/2022 Virtual Visit Pharm Diana Eckert , [facility] [address] [place] [address] (Wo rk) 05/14/2022 Office Visit Cardiology Livan Sharif MD [address], [facility] [address] [place] [address] (Wo rk) 05/31/2022 Office Visit Family Practice Valery Veronica , PA-C [address] [place], [place] [address] (Wo rk) documented as of this encounter Visit Diagnoses Not on filedocumented in this encounter Additional Health Concerns Assessment Noted Time PHQ-9 Depression Total Score: 6 09/29/2020 3:25 PM CDT documented as of this encounter Care Teams Patient Access Associate Relationship Specialty Start Date End Date Marija Edgar APRN PCP - General Nurse Practitioner 04/30/20 MAILROOM MANAGER [address] [place], [place] [phone] Lita Oseguera Personal Advocate & 02/28/20 Liaison (PAL) Chanelle Mccann Assigned OBGYN Provider 05/02/20 05/09/21 [place] [address] [address] [facility] [address] [place], [place] [address] Kyara De La Fuente, VJ Specialty Care Neurology 06/04/20 03/05/21 Coordinator Marija Edgar APRN Assigned PCP 06/08/20 MAILROOM MANAGER [address] [place], [place] [phone] Mynor Broussard MD Assigned Surgical 06/01/20 11/28/21 [address] [facility] Provider 500 [place] [address] Mauri, Assigned Neuroscience 06/04/20 MD Keisha Provider 909 [place], [place] [address] Galo Burrell MD Assigned Heart and 10/05/20 04/02/22 [address] Vascular Provider [address] [place] [address] Cristina Wood Financial Resource Worker 02/09/21 02/09/21 documented as of this encounter
--- OUTSIDE RECORDS SUMMARY | 2022-04-28 01:15 | XMS_ITS | Encounter Summary ---
:2000 Author Organization [facility] Address [address] [place] [address] Care Team Providers Name Role Phone Lita Oseguera Unavailable Unavailable Marija Edgar APRN ADMINISTRATOR PESTICIDE Primary Care Provider [phone] Chanelle Mccann APRN CNM Unavailable + Kyara De La Fuente RN Unavailable Marija Edgar APRN ADMINISTRATOR PESTICIDE Unavailable Mynor Broussard MD Unavailable Keisha Dotson MD Unavailable Galo Burrell MD Unavailable Encounter Details Date Type Department Care Team Description 01/16/2021 Travel Social History Tobacco Use Types Packs/Day [...] How often do you attend episcopalian or episcopalian services? Never 09/22/2021 Do you [...] Office Visit Family Practice Anthony Doe, PABaldo [address] [place] [address] (Wo rk) 05/03/2022 Office Visit Dermatology Neil Kent M D 500 [place] [address] (Wo rk) 05/05/2022 Office Visit Optometry Yeny David, OD [address] [facility] [address] [place] [phone] (Wo rk) 05/11/2022 Virtual Visit Pharm D Diana Desir , [facility] [address] [place] [address] (Wo rk) 05/14/2022 Office Visit Cardiology Livan Sharif MD [address] [facility] [address] [place] [address] (Wo rk) 05/31/2022 Office Visit Family Practice Valery Veronica , PA-C [address] [place] [address] (Wo rk) documented as of this encounter Visit Diagnoses Not on filedocumented in this encounter Additional Health Concerns Assessment Noted Time PHQ-9 Depression Total Score: 6 09/29/2020 3:25 PM CDT documented as of this encounter Care Teams Garbage Collector Driver Relationship Specialty Start Date End Date Marija Edgar APRN PCP - General Nurse Practitioner 04/30/20 ADMINISTRATOR PESTICIDE [address] [place], [place] [phone] Lita Oseguera Personal Advocate & 02/28/20 Liaison (PAL) Chaenlle Mccann Assigned OBGYN Provider 05/02/20 05/09/21 [place] [address] [address] [facility] 200 [place] [address] Kyara De La Fuente RN Specialty Care Neurology 06/04/20 03/05/21 Coordinator Marija Edgar APRN Assigned PCP 06/08/20 ADMINISTRATOR PESTICIDE [address] [place], [place] [phone] Mynor Broussard MD Assigned Surgical 06/01/20 11/28/21 [address] [facility] Provider [address] [place] [address] Mauri, Assigned Neuroscience 06/04/20 MD Keisha Provider 909 [place], [place] [address] Galo Burrell MD Assigned Heart and 10/05/20 04/02/22 [address] Vascular Provider [address] [place], [place] [address] documented as of this encounter
--- OUTSIDE RECORDS SUMMARY | 2022-04-28 01:15 | XMS_ITS | Encounter Summary ---
:2000 Author Organization [facility] Address [address] [place] [address] Care Team Providers Name Role Phone Lita Oseguera Unavailable Unavailable Marija Edgar APRN MICROFILM DUPLICATING UNIT SUPERVISOR Primary Care Provider [phone] Chanelle Mccann APRN CNM Unavailable + Kyara De La Fuente RN Unavailable Marija Edgar APRN MICROFILM DUPLICATING UNIT SUPERVISOR Unavailable Mynor Broussard MD Unavailable Keisha Dotson MD Unavailable Galo Burrell MD Unavailable Encounter Details Date Type Department Care Team Description 01/11/2021 Travel Social History Tobacco Use Types Packs/Day [...] How often do you attend faith or bahai services? Never 09/22/2021 Do you [...] Office Visit Family Practice Anthony Doe, PABaldo [address] [place] [address] (Wo rk) 05/03/2022 Office Visit Dermatology Neil Kent M D [address] [place] [address] (Wo rk) 05/05/2022 Office Visit Optometry Yeny David, OD [address] [facility] [address] [place] [phone] (Wo rk) 05/11/2022 Virtual Visit Pharm D Diana Desir , [facility] [address] [place] [address] (Wo rk) 05/14/2022 Office Visit Cardiology [facility]ivan Sharif [facility] [address] [facility] [address] [place] [address] (Wo rk) 05/31/2022 Office Visit Family Practice Valery Veronica , PA-C [address] [place] [id number] (Wo rk) documented as of this encounter Visit Diagnoses Not on filedocumented in this encounter Additional Health Concerns Assessment Noted Time PHQ-9 Depression Total Score: 6 09/29/2020 3:25 PM CDT documented as of this encounter Care Teams Director Marketing Relationship Specialty Start Date End Date Marija Edgar APRN PCP - General Nurse Practitioner 04/30/20 MICROFILM DUPLICATING UNIT SUPERVISOR [address] [place], [place] [phone] Lita Oseguera Personal Advocate & 02/28/20 Liaison (PAL) Chanelle Mccann Assigned OBGYN Provider 05/02/20 05/09/21 [place] [address] [address] [facility] [address] [place] [address] Kyara De La Fuente RN Specialty Care Neurology 06/04/20 03/05/21 Coordinator Marija Edgar APRN Assigned PCP 06/08/20 MICROFILM DUPLICATING UNIT SUPERVISOR [address] [place], [place] [phone] Mynor Broussard MD Assigned Surgical 06/01/20 11/28/21 [address] [facility] Provider [address] [place] [address] Mauri, Assigned Neuroscience 06/04/20 MD Keisha Provider [address] [place], [place] [address]64[address] Galo Burrell MD Assigned Heart and 10/05/20 04/02/22 [address] Vascular Provider [address] [place], [place] [address] documented as of this encounter
--- OUTSIDE RECORDS SUMMARY | 2022-04-28 01:15 | XMS_ITS | Encounter Summary ---
:2000 Author Organization [place] Address [address] [place] [address] Care Team Providers Name Role Phone Lita Oseguera Unavailable Unavailable Marija Edgar APRN SOLAR SALES ENERGY ADVISOR Primary Care Provider [phone] Chanelle Mccann APRN CNM Unavailable + Kyara De La Fuente RN Unavailable Marija Edgar APRN SOLAR SALES ENERGY ADVISOR Unavailable Mynor Broussard MD Unavailable Keisha Dotson MD Unavailable Galo Burrell MD Unavailable Encounter Details Date Type Department Care Team Description 01/19/2021 Encounter Social History Tobacco Use Types Packs/Day [...] How often do you attend zoroastrianism or mandaen services? Never 09/22/2021 Do you [...] of this encounter Miscellaneous Notes Note - Jaida Serrano RN - 01/19/2021 5:00 PM CDT This note was copied from a baby's chart. visit. Zoe is a 6 day old infant born at 37 weeks gestation who is being monitored for feeding concerns and spitting up. Kim (mother) has been pumping prior to latching Zoe to assist with strong letdown. Discussed concerns with electric pumping stimulation contributing to oversupply,hand pump brought to bedside and discussed use. Discussed at length doing the most minimal amount ofmilk removal necessary to keep Kim comfortable and assist Zoe with letdown. Positioning changesreviewed, encouraged laid back nursing for gravity to assist with flow. Loop Sewer undressed and diaper change needed. Assisted Kim with diaper change, at completion noted to be chewing on secretions in back of throat, having difficulty clearing. O2 saturations at that time noted to be 82%and sustaining in low 80's. Infant picked up and burped, secretions cleared and saturations jumped to low 90's, color remained pink throughout episode. Bedside RN called into room for further evaluation, 02 monitor replaced for better signal strength. sustaining oxygen in upper 90's, moved to [facility] infant on left breast. With breast compression infant sustained latch, nutritive suck swallow pattern noted and multiple swallows pointed out to Kim. Infant very coordinated, oxygen saturations remianed 99-100% throughout feeding. Approximately 7 min spent at breast, infant fatigued and placed STS with Kim. Kim stating this is an abnormally short feeding, visibly distressed regarding previous low saturation episode. Bedside RN Lila olguin MD rounding this evening for further evaluation. Kim with many questions regarding , pumping, and bottling in the immediate period. Loop Sewer will investigate resources and provide to Kim shortly. documented in this encounter Plan of Treatment Upcoming Encounters Date Type Specialty Care Team Description 04/28/2022 Office Visit Family Practice Anthony Doe, ROVERTO [address] [place] [address] (Wo rk) 05/03/2022 Office Visit Dermatology Neil Kent M D [address] [place] [address] (Wo rk) 05/05/2022 Office Visit Optometry Yeny David, OD [address] [address] [place] [phone] (Wo rk) 05/11/2022 Virtual Visit Pharm Diana Eckert , [facility] [address] [place] [address] (Wo rk) 05/14/2022 Office Visit Cardiology Livan Sharif MD [address] , [place] [address] [place], [place] [address] (Wo rk) 05/31/2022 Office Visit Family Practice Valery Veronica PA-C [address] [place], [place] [address] (Wo rk) documented as of this encounter Visit Diagnoses Not on filedocumented in this encounter Additional Health Concerns Assessment Noted Time PHQ-9 Depression Total Score: 6 09/29/2020 3:25 PM CDT documented as of this encounter Care Teams Manager Energy Relationship Specialty Start Date End Date Marija Edgar APRN PCP - General Nurse Practitioner 04/30/20 SOLAR SALES ENERGY ADVISOR [address] [place], [place] [phone] Lita Oseguera Personal Advocate & 02/28/20 Liaison (PAL) Chanelle Mccann Assigned OBGYN Provider 05/02/20 05/09/21 [place] [address] [address] [address] [place] [address] Kyara De La Fuente RN Specialty Care Neurology 06/04/20 03/05/21 Coordinator Marija Edgar APRN Assigned PCP 06/08/20 SOLAR SALES ENERGY ADVISOR [address] [place], [place] [phone] Mynor Broussard MD Assigned Surgical 06/01/20 11/28/21 [address] [place] Provider [address] [place], [place] [address] Melody Dotson Neuroscience 06/04/20 MD Keisha Provider [address] [place], [place] [address] Galo Burrell MD Assigned Heart and 10/05/20 04/02/[address] Vascular Provider [address] [place] [address] documented as of this encounter
--- OUTSIDE RECORDS SUMMARY | 2022-04-28 01:15 | XMS_ITS | Encounter Summary ---
:2000 Author Organization [place] Address [address] [place] [address]. [place] [address] Care Team Providers Name Role Phone Lita Oseguera Unavailable Unavailable Marija Edgar APRN, CNP Primary Care Provider [phone] Chanelle Mccann APRN CNM Unavailable + Kyara De La Fuente RN Unavailable Marija Edgar APRN OPERATIONS OFFICER Unavailable Mynor Broussard MD Unavailable Keisha Dotson MD Unavailable Galo Burrell MD Unavailable Reason for Referral Care Coordination (Routine) - Closed Specialty Diagnoses / Procedures Referred By Contact Refer red To Contact Diagnoses Other specified counseling [facility] Care Coordination [address] [place], [place] [phone] Referral ID Status Reason Start Date Expiration Date Visits Requ ested Visits Authorized [id number] Closed 01/16/2021 01/16/2022 1 1 Encounter Details Date Type Department Care Team Description 01/16/2021 Orders Only M [facility] Care Marija Edgar O ther specified Coordination ARLENE OPERATIONS OFFICER counseling [address] [facility] [address] [place] [address] [phone] Social History Tobacco Use Types Packs/Day Years [...] week 09/22/2021 How often do you attend cheondoism or sabianist services? Never 09/22/2021 Do you belong to any clubs or organizations such as No 09/22/2021 cheondoism groups, unions, fraternal or athletic groups, or [...] Office Visit Family Practice Anthony Doe PAUcheC [address] [place], [place] [phone] (Wo rk) 05/03/2022 Office Visit Dermatology Neil Kent M D [address] [place], [place] [address]45 (Wo rk) 05/05/2022 Office Visit Optometry Yeny David, OD [address] [place], [place] [phone] (Wo rk) 05/11/2022 Virtual Visit Pharm D Diana Desir , [facility] [address] [place], [place] [address] (Wo rk) 05/14/2022 Office Visit Cardiology Livan Sharif MD [address], [facility] [address] [place], [place] [address] (Wo rk) 05/31/2022 Office Visit Family Psychiatric Valery Veronica PA-C [address] [place], [place] [address] (Wo rk) Scheduled Referrals Name Type Priority Associated Diagnoses Order S chedule Referral to CC - CHW Referral Routine Other specified coun seling Ordered: 01/16/2021 documented as of this encounter Visit Diagnoses Diagnosis Other specified counseling documented in this encounter Additional Health Concerns Assessment Noted Time PHQ-9 Depression Total Score: 6 09/29/2020 3:25 PM CDT documented as of this encounter Care Teams Vortex Operator Relationship Specialty Start Date End Date Marija Edgar APRN PCP - General Nurse Practitioner 04/30/20 OPERATIONS OFFICER [address] [place] [address] Lita Oseguera Personal Advocate & 02/28/20 Liaison (PAL) Chanelle Mccann Assigned OBGYN Provider 05/02/20 05/09/21 [place] [address] [address] [facility] [address] [place], [place] [address] Kyara De La Fuente, VJ Specialty Care Neurology 06/04/20 03/05/21 Coordinator Marija Edgar APRN Assigned PCP 06/08/20 OPERATIONS OFFICER [address] [place], [place] [phone] Mynor Broussard MD Assigned Surgical 06/01/20 11/28/21 [address] [place] Provider [address] [place], [place] [address] Melody Dotson Neuroscience 06/04/20 MD Keisha Provider [address] [place] [address] Galo Burrell MD Assigned Heart and 10/05/20 04/02/22 [address] Vascular Provider [address] [place] [id number] documented as of this encounter
--- OUTSIDE RECORDS SUMMARY | 2022-04-28 01:15 | XMS_ITS | Encounter Summary ---
:2000 Author Organization [place] Address [address] [place] [address] Care Team Providers Name Role Phone Lita Oseguera Unavailable Unavailable Marija Edgar APRN GARBAGE PICK UP WORKER Primary Care Provider [phone] Chanelle Mccann APRN CNM Unavailable + Kyara De La Fuente RN Unavailable Marija Edgar APRN GARBAGE PICK UP WORKER Unavailable Mynor Broussard MD Unavailable Keisha Dotson MD Unavailable Galo Burrell MD Unavailable Encounter Details Date Type Department Care Team Description 01/18/2021 Travel Social History Tobacco Use Types Packs/Day [...] How often do you attend cheondoism or alevism services? Never 09/22/2021 Do you [...] Office Visit Family Practice Anthony Doe, PABaldo [address] [place] [address] (Wo rk) 05/03/2022 Office Visit Dermatology Neil Kent M D [address] [place] [address] (Wo rk) 05/05/2022 Office Visit Optometry Yeny David, OD [address] [facility] [address] [place] [phone] (Wo rk) 05/11/2022 Virtual Visit Pharm D Diana Desir , [facility] [address] [place] [address] (Wo rk) 05/14/2022 Office Visit Cardiology [facility]ivan [facility]if [facility] [address] [facility] [address] [place] [address] (Wo rk) 05/31/2022 Office Visit Family Practice Valery Veronica , PA-C [address] [place] [phone] (Wo rk) documented as of this encounter Visit Diagnoses Not on filedocumented in this encounter Additional Health Concerns Assessment Noted Time PHQ-9 Depression Total Score: 6 09/29/2020 3:25 PM CDT documented as of this encounter Care Teams Switch Coupler Relationship Specialty Start Date End Date Marija Edgar APRN PCP - General Nurse Practitioner 04/30/20 GARBAGE PICK UP WORKER [address] [place], [place] [phone] Lita Oseguera Personal Advocate & 02/28/20 Liaison (PAL) Chanelle Mccann Assigned OBGYN Provider 05/02/20 05/09/21 [place] [address] [address] [facility] [address] [place] [address] Kyara De La Fuente RN Specialty Care Neurology 06/04/20 03/05/21 Coordinator Marija Edgar APRN Assigned PCP 06/08/20 GARBAGE PICK UP WORKER [address] [place], [place] [phone] Mynor Broussard MD Assigned Surgical 06/01/20 11/28/21 [address] [facility] Provider [address] [place] [address] Mauri, Assigned Neuroscience 06/04/20 MD Keisha Provider [address] [place], [place] [address] Galo Burrell MD Assigned Heart and 10/05/20 04/02/22 [address] Vascular Provider [address] [place], [place] [address] documented as of this encounter
--- OUTSIDE RECORDS SUMMARY | 2022-04-28 01:15 | XMS_ITS | Encounter Summary ---
:2000 Author Organization [place] Address [address] [place] [address]. [place] [address] Care Team Providers Name Role Phone Lita Oseguera Unavailable Unavailable Marija Edgar APRN HAND TIRE TRIMMER Primary Care Provider [phone] Chanelle Mccann APRN CNM Unavailable + Kyara De La Fuente RN Unavailable Marija Edgar APRN HAND TIRE TRIMMER Unavailable Mynor Broussard MD Unavailable Keisha Dotson MD Unavailable Galo Burrell MD Unavailable Reason for Visit Reason Onset Date Comments Medication Question 01/19/2021 Encounter Details Date Type Department Care Team Description 01/19/2021 Telephone [facility] Natasha Duggan, Sd dication Question [facility] Heart RN, RN Care [facility] [address] [facility] [address] [place] [address] [address] [place] [id number] (Wo rk) Social History Tobacco Use Types [...] How often do you attend druze or orthodoxy services? Never 09/22/2021 Do you [...] Telephone Encounter - Joanne Portillo RN - 01/22/2021 2:44 PM CDT 01/22/21 Pt returned call and informed her she can either continue w low dose Metoprolol or try to gooff and see what HR will do. She stated she has had a few episodes of SVT but they were very short and not as bad as when she was . Explained that she is in the immediate post period and hormones are unstable so continued SVT episodes are not uncommon. She stated she will most likely continue taking 1/2 tab of Toprol 25 mg for now. Explained that we do not know if/when SVT will return or go away. If she stops medication , best to monitor HR over near future and let us know if SVT continues. Pt states she is interested in discussing Ablation w Dr Burrell but after things settle down and she has time as right now she is focused on her . All in agreement w plan. KHerroRN 3 pm Telephone Encounter - Margaret Rendon RN - 01/21/2021 5:10 PM CDT Voicemail transferred from device team patient was returning message. Attempted to call patient backhad to leave message. Awaiting return call. VJ Kennedy Telephone Encounter - Natasha Duggan RN, RN - 01/21/2021 12:30 PM CDT Called and left message for pt with Dr Fairchild' recommendation regarding her toprol. She can continue oftry stopping it. He also recommends elective ablation of her SVT. Telephone Encounter - Galo Burrell MD - 01/19/2021 4:35 PM CDT She can continue metoprolol 25 mg daily or withhold it for observation. Consider SVT ablation electively. Telephone Encounter - Natasha Duggan RN, RN - 01/19/2021 2:13 PM CDT Pt calling to report she delivered her daughter on 01/13/21. Her heart rate has been in the 70s the past couple of days and she wonders about the dose of metoprolol. She has been taking 1/2 of Toprol 25 mg tab. Will review with Dr Burrell. Addendum Note - Joanne Portillo RN - 01/19/2021 2:13 PM CDT Addended by: JOANNE PORTILLO on: 01/22/2021 03:04 PM Modules accepted: Orders documented in this encounter Plan of Treatment Upcoming Encounters Date Type Specialty Care Team Description 04/28/2022 Office Visit Family Practice Anthony Doe, PAUhceC [address] [place] [address] (Wo rk) 05/03/2022 Office Visit Dermatology Neil Kent M D [address] [place] [address] (Wo rk) 05/05/2022 Office Visit Optometry Yeny David, OD [address] [facility] [address] [place] [phone] (Wo rk) 05/11/2022 Virtual Visit Pharm D Diana Desir , [facility] [address] [place], [place] [address] (Wo rk) 05/14/2022 Office Visit Cardiology Livan Sharif MD [address], [facility] [address] [place], [place] [address] (Wo rk) 05/31/2022 Office Visit Family Practice Valery Veronica , PAUcheC [address] [place], [place] [address] (Wo rk) documented as of this encounter Visit Diagnoses Diagnosis Anxiety Anxiety state, unspecified Palpitations documented in this encounter Additional Health Concerns Assessment Noted Time PHQ-9 Depression Total Score: 6 09/29/2020 3:25 PM CDT documented as of this encounter Care Teams Denier Control Operator Relationship Specialty Start Date End Date Marija Egdar APRN PCP - General Nurse Practitioner 04/30/20 HAND TIRE TRIMMER [address] [place] [address] Lita Oseguera Personal Advocate & 02/28/20 Liaison (PAL) Chanelle Mccann Assigned OBGYN Provider 05/02/20 05/09/21 [place] [address] [address] [facility], [facility] [address] [place], [place] [address] Kyara De La Fuente RN Specialty Care Neurology 06/04/20 03/05/21 Coordinator Marija Edgar APRN Assigned PCP 06/08/20 HAND TIRE TRIMMER [address] [place] [address] Mynor Broussard MD Assigned Surgical 06/01/20 11/28/21 [address] [place] Provider [address] [place] [address] Mauri, Assigned Neuroscience 06/04/20 MD Keisha Provider [address] [place], [place] [address] Galo Burrell MD Assigned Heart and 10/05/20 04/02/22 [address] Vascular Provider [address] [place] [id number] documented as of this encounter
--- OUTSIDE RECORDS SUMMARY | 2022-04-28 01:15 | XMS_ITS | Encounter Summary ---
:2000 Author Organization [facility] Address [address] [place] [address]. [place] [address] Care Team Providers Name Role Phone Lita Oseguera Unavailable Unavailable Marija Edgar APRN TRAILER MECHANIC Primary Care Provider [phone] Chanelle Mccann APRN CNM Unavailable + Kyara De La Fuente RN Unavailable Marija Edgar APRN TRAILER MECHANIC Unavailable Mynor Broussard MD Unavailable Keisha Dotson MD Unavailable Galo Burrell MD Unavailable Reason for Visit Auth/Cert Specialty Diagnoses / Procedures Referred By Contact Refer red To Contact wire wheeler Diagnoses Term Term Rh Labor And Delivery [address] [place], [place] [address] Phone: Fax: Referral ID Status Reason Start Date Expiration Date Visits Requ ested Visits Authorized [id number] 1 1 Encounter Details Date Type Department Care Team Description 01/13/2021 Anesthesia Event M [facility] Paolo Pollakc, DO [facility] [address] [place], [place] [address] [facility] Jeffrey Serrano MD [facility] [address] [place], [place] [address] [address] [place] [address] Anesthesia Record Procedure Summary Procedure Name Responsible Anesthesia Start Time Anesthesia Stop Time Anesthesiologist LABOR ANALGESIA Zafar Pollack, DO 01/13/21 1326 01/13/21 15 59 Events Date Time Event Comment 01/13/2021 1326 An Start 1326 AN FACE TIME IN 1344 An Facetime Out 1559 An Stop Electronically s igned by Elizabeth Rivera RN on January 13, 2021 4:00 PM No medications on file. Agents No agents on file. Blood No blood administrations on file. Lines, Drains, and Airways Type Details Placement Removal Peripheral IV 01/13/21; 0900; 18 G, 1 01/13/21 0900 by 1 0335 by 1/ inch; Right; Lower Genny Zeng RN F Libra fletcher RN forearm; Chlorhexidine; None; 1; Tolerated well Epidural 01/13/21; 1326 (created 01/13/21 1326 by 1 1836 by via procedure Remy Altamirano, Elizabeth Rivera RN documentation); Physician; Epidural; L3-4; Tip intact Urethral Catheter 01/13/21; 1416; 01/13/21 1416 by 01/13/21 1534 by Epidural/Intrathecal Rani, VJ Odom Maria, RN Catheter documented in this encounter Social History Tobacco [...] How often do you attend christian or bahai services? Never 09/22/2021 Do you [...] / COVID-19? documented as of this encounter OR Notes Anesthesia Postprocedure Evaluation - Ahmet Torres MD - 01/14/2021 8:28 AM CDT Patient: Kim Johnson * No procedures listed * Diagnosis:* No pre-op diagnosis entered * Diagnosis Additional Information: No value filed. Anesthesia Type: Epidural Note: Disposition: Inpatient Postop Pain Control: Sign Out: Well controlled pain PONV: No Neuro/Psych: Uneventful Sign Out: Acceptable/Baseline neuro status Airway/Respiratory: Uneventful Sign Out: Acceptable/Baseline resp. status CV/Hemodynamics: Uneventful Sign Out: Acceptable CV status; No obvious hypovolemia; No obvious fluid overload Other NRE: NONE DID A NON-ROUTINE EVENT OCCUR? No Event details/Postop Comments: S/P epidural for labor. I or my partner was immediately available for management of this patient during epidural analgesia infusion. VSS. Doing well. Block resolved. Neuro at baseline. Denies positional headache. Minimal side effectseasily managed w/ PRN meds. No apparent anesthetic complications. No follow-up required. Perry Torres MD Last vitals: Vitals: 01/13/21 2213 01/14/21 0043 01/14/21 0805 BP: 112/60 113/60 115/75 Pulse: 76 76 75 Resp: 18 18 16 Temp: 98 ??F (36.7 ??C) 97.9 ??F (36.6 ??C) 98 ??F (36.7 ??C) SpO2: 98% 100% 96% Last vitals prior to Anesthesia Care Transfer: Electronically Signed By: Ahmet Torres MD January 14, 2021 8:28 AM Anesthesia Procedure Notes - Remy Altamirano MD - 01/13/2021 1:46 PM CDT Associated Order(s): Epidural Block Epidural catheter Procedure Note Pre-Procedure Staff - Anesthesiologist: Remy Altamirano MD Performed By: anesthesiologist Referred By: mica Location: OB Procedure Start/Stop Times: 01/13/2021 1:26 PM and 01/13/2021 1:46 PM Pre-Anesthestic Checklist: patient identified, IV checked, risks and benefits discussed, informed consent, monitors and equipment checked, pre-op evaluation and at physician/surgeon's request Timeout: Correct Patient: Yes Correct Procedure: Yes Correct Site: Yes Correct Position: Yes Procedure Documentation Procedure: epidural catheter Diagnosis: pcea Patient Position: sitting Patient Prep/Sterile Barriers: sterile gloves, mask, patient draped Skin prep: Betadine Local skin infiltrated with 2 mL of 1% lidocaine. Insertion Site: L3-4. (midline approach). Technique: LORT air ALICE at 7 cm. Needle Type: Touhy needle Needle Gauge: 17. Needle Length (Inches): 3.5 Catheter: 19 G. Catheter threaded easily. Threaded 12 cm at skin. # of attempts: 1 and # of redirects: Assessment/Narrative Paresthesias: No. Test dose of 3 mL lidocaine 1.5% w/ 1:200,000 epinephrine at. Test dose negative, 3 minutes after injection, for signs of intravascular, subdural, or intrathecalinjection. Insertion/Infusion Method: LORT air Aspiration negative for Heme or CSF via Epidural Catheter. Comments: Bolus 10cc .25marc Anesthesia Preprocedure Evaluation - Remy Altamirano MD - 01/13/2021 1:44 PM CDT Anesthesia Pre-Procedure Evaluation Patient: Kim Johnson : 2000 Preoperative Diagnosis: * No pre-op diagnosis entered * Procedure : * No procedures listed * Past Medical History: Diagnosis Date ??? Anxiety ??? Chronic kidney disease stones, history of infections ??? Depressive disorder ??? Gastroesophageal reflux disease ??? Psoriasis ??? Seizure (H) 05/02/2019 no seizure since 2017 ??? SVT (supraventricular tachycardia) (H) Past Surgical History: Procedure Laterality Date ??? GENITOURINARY SURGERY kidney No Known Allergies Social History Tobacco Use ??? Smoking status: Former Smoker Packs/day: 1.00 Types: Other Quit date: 12/07/2019 Years since quittin.1 ??? Smokeless tobacco: Never Used Substance Use Topics ??? Alcohol use: Not Currently Frequency: Never Drinks per session: Patient refused Binge frequency: Never Wt Readings from Last 1 Encounters: 01/11/21 93.9 kg (207 lb) Anesthesia Evaluation ROS/MED HX ENT/Pulmonary: (+) tobacco use, asthma Neurologic: (+) seizures, Cardiovascular: (+) -----dysrhythmias, Other, METS/Exercise Tolerance: Hematologic: Musculoskeletal: GI/Hepatic: (+) GERD, Renal/Genitourinary: (+) Nephrolithiasis , Endo: Psychiatric/Substance Use: (+) psychiatric history anxiety and depression Infectious Disease: Malignancy: Other: (+) Possibly , , OUTSIDE LABS: CBC: Lab Results Component Value Date WBC 10.1 01/11/2021 WBC 10.4 12/27/2020 HGB 9.5 (L) 01/13/2021 HGB 9.9 (L) 01/11/2021 HCT 32.4 (L) 01/11/2021 HCT 31.5 (L) 12/27/2020 PLT 220 01/11/2021 PLT 238 12/27/2020 BMP: Lab Results Component Value Date NA 134 12/27/2020 NA 136 12/13/2020 POTASSIUM 3.9 12/27/2020 POTASSIUM 3.7 12/13/2020 CHLORIDE 103 12/27/2020 CHLORIDE 105 12/13/2020 CO2 28 12/27/2020 CO2 23 12/13/2020 BUN 6 (L) 12/27/2020 BUN 6 (L) 12/13/2020 CR 0.63 12/27/2020 CR 0.51 (L) 12/13/2020 GLC 76 12/27/2020 GLC 101 (H) 12/13/2020 COAGS: No results found for: PTT, INR, FIBR POC: Lab Results Component Value Date HCG Positive (A) 05/30/2020 HCGS Negative 05/11/2018 HEPATIC: Lab Results Component Value Date ALBUMIN 2.6 (L) 12/13/2020 PROTTOTAL 6.9 12/13/2020 ALT 17 12/13/2020 AST 9 12/13/2020 ALKPHOS 111 12/13/2020 BILITOTAL 0.2 12/13/2020 OTHER: Lab Results Component Value Date CECILLE 9.1 12/27/2020 LIPASE 135 03/27/2020 AMYLASE 47 03/27/2020 TSH 2.22 08/16/2020 CRP 42.1 (H) 02/04/2008 SED 42 (H) 04/19/2007 Anesthesia Plan ASA Status: 3 NPO Status: NPO Appropriate Anesthesia Type: Epidural. Consents Anesthesia Plan(s) and associated risks, benefits, and realistic alternatives discussed. Questions answered and patient/claim representative(s) expressed understanding. - Discussed with: Patient Postoperative Care Pain management: Neuraxial analgesia. Comments: pcea for labor Remy Altamirano MD documented in this encounter Plan of Treatment Upcoming Encounters Date Type Specialty Care Team Description 04/28/2022 Office Visit [facility] Anthony Doe PA-C [address] [place], [place] [phone] (Wo rk) 05/03/2022 Office Visit Dermatology Neil Kent M D [address] [place] [address] (Wo rk) 05/05/2022 Office Visit Optometry Yeny David, OD [address] [place] [address] (Wo rk) 05/11/2022 Virtual Visit Pharm D Diana Desir , [facility] [address] [place], [place] [address] (Wo rk) 05/14/2022 Office Visit Cardiology Livan Sharif MD [address] [facility], [facility] [address] [place], [place] [address] (Wo rk) 05/31/2022 Office Visit [facility] Valery Veronica , [address] [place], [place] [address] (Wo rk) documented as of this encounter Procedures Procedure Name Priority Date/Time Associated Diagnosis Comme nts ANE EPIDURAL BLOCK Routine 01/13/2021 1:46 PM Res ults for this CDT procedure are i n the results section. documented in this encounter Results FV AN EPIDURAL DUMMY PERFORMABLE (01/13/2021 1:46 PM CDT) Narrative Remy Altamirano MD - 01/13/2021 1: 46 PM CDT Remy Altamirano MD ? 01/13/2021 ??1:47 PM Epidural catheter Procedure Note Pre-Procedure Staff - ? Anesthesiologist: ??Remy Altamirano MD ? Performed By: anesthesiologist ? Referred By: mica ? Location: OB ? Procedure Start/Stop Times: 021 1:26 PM and 01/13/2021 1:46 PM ? Pre-Anesthestic Checklist: patien t identified, IV checked, risks and benefits discussed, informed consent, mo nitors and equipment checked, pre-op evaluation and at physician/surge on's request Timeout: ? Correct Patient: Yes ? Correct Procedure: Yes ? Correct Site: Yes ? Correct Position: Yes Procedure Documentation Procedure: epidural catheter ? Diagnosis: pcea ? Patient Position: sitting ? Patient Prep/Sterile Barriers: st erile gloves, mask, patient draped ? Skin prep: Betadine ? Local skin infiltrated with 2 mL of 1% lidocaine. ? Insertion Site: L3-4. (midline ap proach). ? Technique: LORT air ? ALICE at 7 cm. ? Needle Type: Touhy needle ? Needle Gauge: 17. ? Needle Length (Inches): 3.5 ? Catheter: 19 G. ? Catheter threaded easily. ? Threaded 12 cm at skin. ?# of attempts: 1 and ??# of redire cts: Assessment/Narrative ? Paresthesias: No. ?Test dose of 3 mL lidocaine 1.5% w / 1:200,000 epinephrine at. ? Test dose negative, 3 minutes aft er injection, for signs of intravascular, subdural, or intrathecal injection. ? Insertion/Infusion Method: LORT a ir ? Aspiration negative for Heme or C SF via Epidural Catheter. Comments: ??Bolus 10cc .25marc Remy Altamirano MD [place] ANESTHESIA documented in this encounter Visit Diagnoses Not on filedocumented in this encounter Additional Health Concerns Assessment Noted Time PHQ-9 Depression Total Score: 6 09/29/2020 3:25 PM CDT documented as of this encounter Care Teams Hygiene Coordinator Relationship Specialty Start Date End Date Marija Edgar APRN PCP - General Nurse Practitioner 04/30/20 TRAILER MECHANIC [address] [place] [address] Lita Oseguera Personal Advocate & 02/28/20 Liaison (PAL) Chanelle Mccann Assigned OBGYN Provider 05/02/20 05/09/21 [place] [address] [address] [facility], [address] [place], [place] [address] Kyara De La Fuente, VJ Specialty Care Neurology 06/04/20 03/05/21 Coordinator Marija Edgar APRN Assigned PCP 06/08/20 TRAILER MECHANIC [address] [place] [address] Mynor Broussard MD Assigned Surgical 06/01/20 11/28/[address] Provider [address] [place] [address] Mauri, Assigned Neuroscience 06/04/20 MD Keisha Provider [address] [place] [address] Galo Burrell MD Assigned Heart and 10/05/20 04/02/[address] Vascular Provider [address] [place] [address] documented as of this encounter
--- OUTSIDE RECORDS SUMMARY | 2022-04-28 01:16 | XMS_ITS | Encounter Summary ---
:2000 Author Organization [facility] [facility] Address [address] [place] [address] Care Team Providers Name Role Phone Lita Oseguera Unavailable Unavailable Marija Edgar APRN DISC PAD PLATE FILLER Primary Care Provider [phone] Chanelle Mccann APRN CNM Unavailable + Kyara De La Fuente RN Unavailable Marija Edgar APRN DISC PAD PLATE FILLER Unavailable Mynor Broussard MD Unavailable Keisha Dotson MD Unavailable Stacey Briones EXERCISE INSTRUCTOR Unavailable Galo Burrell MD Unavailable Lesley Moody MA Unavailable Encounter Details Date Type Department Care Team Description 12/13/2020 Travel Social History Tobacco Use Types Packs/Day [...] How often do you attend yazidi or latter-day services? Never 09/22/2021 Do you [...] been in contact with No / Unsure 12/13/2020 8:18 PM CDT someone who was confirmed or suspected to have Coronavirus / COVID-19? documented as of this encounter Plan of Treatment Upcoming Encounters Date Type Specialty Care Team Description 04/28/2022 Office Visit Family Practice Anthony Doe PA-C [address] [place], [place] [phone] (Wo rk) 05/03/2022 Office Visit Dermatology Neil Kent M D [address] [place] [phone] (Wo rk) 05/05/2022 Office Visit Optometry Yeny David, OD [address] [facility] [address] [place] [phone] (Wo rk) 05/11/2022 Virtual Visit Pharm D Diana Desir , [facility] [address] [place], [place] [phone] (Wo rk) 05/14/2022 Office Visit Cardiology Livan Sharif MD [address] [place], [place] [address] (Wo rk) 05/31/2022 Office Visit Family Practice Valery Veronica , PA-C [address] [place] [address] (Wo rk) documented as of this encounter Visit Diagnoses Not on filedocumented in this encounter Additional Health Concerns Assessment Noted Time PHQ-9 Depression Total Score: 6 09/29/2020 3:25 PM CDT documented as of this encounter Care Teams Central Service Supply Distributor Relationship Specialty Start Date End Date Marija Edgar APRN PCP - General Nurse Practitioner 04/30/20 DISC PAD PLATE FILLER [address] [place] [address] Lita Oseguera Personal Advocate & 02/28/20 Liaison (PAL) Chanelle Mccann Assigned OBGYN Provider 05/02/20 05/09/21 [place] [address] [place], [facility] [address] [place], [place] [address] Kyara De La Fuente, VJ Specialty Care Neurology 06/04/20 03/05/21 Coordinator Marija Edgar APRN Assigned PCP 06/08/20 DISC PAD PLATE FILLER [address] [place], [place] [phone] Mynor Broussard MD Assigned Surgical 06/01/20 11/28/21 [address] [facility] Provider [address] [address] Mauri, Assigned Neuroscience 06/04/20 MD Keisha Provider [address] [place], [place] [address] Stacey Briones, EXERCISE INSTRUCTOR Lead Hazardous Materials Driver Primary Care - CC 08/11/20 12/30/20 Galo Burrell MD Assigned Heart and 10/05/20 04/02/22 [address] Vascular Provider [address] [place], [place] [address] Lesley Moody, Community Health Worker 10/23/20 12/30/20 JOSE ALBERTO documented as of this encounter
--- OUTSIDE RECORDS SUMMARY | 2022-04-28 01:16 | XMS_ITS | Encounter Summary ---
:2000 Author Organization [facility] Address [address] [place] [address] Care Team Providers Name Role Phone Lita Oseguera Unavailable Unavailable Marija Edgar APRN PBX INSPECTOR Primary Care Provider [phone] Chanelle Mccann APRN CNM Unavailable + Kyara De La Fuente RN Unavailable Marija Edgar APRN PBX INSPECTOR Unavailable Mynor Broussard MD Unavailable Keisha Dotson MD Unavailable Stacey Briones IT TECHNICAL SPECIALIST Unavailable Galo Burrell MD Unavailable Lesley Moody MA Unavailable Encounter Details Date Type Department Care Team Description 12/05/2020 Travel Social History Tobacco Use Types Packs/Day [...] How often do you attend bahai or methodist services? Never 09/22/2021 Do you belong to [...] been in contact with No / Unsure 12/05/2020 1:22 PM CDT someone who was confirmed or suspected to have Coronavirus / COVID-19? documented as of this encounter Plan of Treatment Upcoming Encounters Date Type Specialty Care Team Description 04/28/2022 Office Visit Family Practice Anthony Doe PA-C [address] [place], [place] [phone] (Wo rk) 05/03/2022 Office Visit Dermatology Neil Kent M D [address] [place] [phone] (Wo rk) 05/05/2022 Office Visit Optometry Yeny David, OD [address] [facility] [address] [place] [phone] (Wo rk) 05/11/2022 Virtual Visit Pharm D Diana Desri , [facility] [address] [place], [place] [phone] (Wo rk) 05/14/2022 Office Visit Cardiology Livan Sharif MD [address] [place], [place] [address] (Wo rk) 05/31/2022 Office Visit Family Practice Valery Veronica , PA-C [address] [place] [address] (Wo rk) documented as of this encounter Visit Diagnoses Not on filedocumented in this encounter Additional Health Concerns Assessment Noted Time PHQ-9 Depression Total Score: 6 09/29/2020 3:25 PM CDT documented as of this encounter Care Teams Supervisor Continuous [employer] Relationship Specialty Start Date End Date Marija Edgar APRN PCP - General Nurse Practitioner 04/30/20 PBX INSPECTOR [address] [place] [address] Lita Oseguera Personal Advocate & 02/28/20 Liaison (PAL) Chanelle Mccann Assigned OBGYN Provider 05/02/20 05/09/21 [place] [address] [place], [facility] [address] [place], [place] [address] Kyara De La Fuente, VJ Specialty Care Neurology 06/04/20 03/05/21 Coordinator Marija Edgar APRN Assigned PCP 06/08/20 PBX INSPECTOR [address] [place], [place] [phone] Mynor Broussard MD Assigned Surgical 06/01/20 11/28/21 [address] [facility] Provider [address] [address] Mauri, Assigned Neuroscience 06/04/20 MD Keisha Provider [address] [place], [place] [address] Stacey Briones, IT TECHNICAL SPECIALIST Lead Assistance Coordinator Primary Care - CC 08/11/20 12/30/20 Galo Burrell MD Assigned Heart and 10/05/20 04/02/22 [address] Vascular Provider [address] [place], [place] [address] Lesley Moody, Community Health Worker 10/23/20 12/30/20 JOSE ALBERTO documented as of this encounter
--- OUTSIDE RECORDS SUMMARY | 2022-04-28 01:16 | XMS_ITS | Encounter Summary ---
:2000 Author Organization [place] Address [address] [place] [address]. [place] [address] Care Team Providers Name Role Phone Lita Oseguera Unavailable Unavailable Marija Edgar APRN AUTOMOTIVE PARTS INTERPRETER Primary Care Provider [phone] Chanelle Mccann APRN CNM Unavailable + Kyara De La Fuente RN Unavailable Marija Edgar APRN AUTOMOTIVE PARTS INTERPRETER Unavailable Mynor Broussard MD Unavailable Keisha Dotson MD Unavailable Stacey Briones [employer] Unavailable Galo Burrell MD Unavailable Lesley Moody MA Unavailable Reason for Visit Reason Comments Abdominal Pain Encounter Details Date Type Department Care Team Description 12/09/2020 Hospital Encounter [facility] Patti Nobles MD [facility] [address] [facility] [address] [place], [place] [address] [phone] [place], [place] [address] (Wo rk) Social History Tobacco Use Types [...] How often do you attend anabaptism or jehovah's witness services? Never 09/22/2021 Do [...] been in contact with No / Unsure 12/09/2020 4:34 PM CDT someone who was confirmed or suspected to have Coronavirus / COVID-19? documented as of this encounter Last Filed Vital Signs Vital Sign Reading Time Taken Comments Blood Pressure 103/55 12/09/2020 8:40 PM CDT Pulse - - Temperature 36.7 ??C (98 ??F) 12/09/2020 5:07 PM CDT Respiratory Rate 18 12/09/2020 5:07 PM CDT Oxygen Saturation 97% 12/09/2020 8:45 PM CDT Inhaled Oxygen Concentration - - Weight - - Height - - Body Mass Index - - documented in this encounter Discharge Instructions Discharge InstructionsPati Hayes RN - 12/09/2020 9:02 PM CDT Discharge Instruction for Undelivered Patients You were seen for: seeing spots,flashing light and RUQ pain. We Consulted: Dr Nobles and Geremias You had (Test or Medicine):EFM, labs and UA. Diet: Drink 8 to 12 glasses of liquids (milk, juice, water) every day. You may eat meals and snacks. Activity: Call your doctor or nurse licensed and certified midwife if your baby is moving less than [...] vaginal discharge (note the color and amount) Follow-up: As scheduled in the clinic documented in this encounter Medications at Time of Discharge Medication Sig Dispensed Refills Start Date End Date Vit-Fe Take 1 tablet by 90 tablet 3 06/04/2020 Fumarate-FA ( mouth daily MULTIVITAMIN W/IRON) 27-0.8 MG tablet folic acid (FOLVITE) 1 MG Take 1 tablet (1 180 tablet 3 05/1201/11/2021 tabletIndications: mg) by mouth 2 Convulsions, unspecified times daily convulsion type (H) levETIRAcetam (KEPPRA) Take 1 tab twice a [...] documented as of this encounter Miscellaneous Notes Provider Notification - Pati Hayes RN - 12/09/2020 9:12 PM CDT 12/09/202046 Provider Notification Provider Name/Title Dr Nobles Method of Notification Phone Request Evaluate - Remote Notification Reason Other (Comment);Patient Request Paged Dr Hemant Nobles updated reg pt status, PIH labs normal,O2 sats 95-100%,no more RUQ pain except pt is feeling pain in her left arm pit pain.Pt reported now she is feeling better than she came in and OK going home.Nurse offered to see in ED for further evaluations,however pt declined.MD gave discharge orders as Pt is feeling better.Pt can do F/U As scheduled appointment, or if any concerns call OB care provider.Pt voiced understandings. Data: Patient assessed in the [facility] for leaking vaginal fluid, seeing flashing lights/RUQ pain.Cervical exam not examined. Membranes intact. Contractions/uterine assessment none. Action: Presumed adequate oxygenation documented (see flow record). Discharge instructions reviewed. Patient instructed to report change in movement, vaginal leaking of fluid or bleeding, abdominal pain, or any concerns related to the to her nurse/physician. Response: Orders to discharge home per Patti Nobles. Patient verbalized understanding of education and verbalized agreement with plan. Discharged to home at 2110. Plan of Care - Halie Lange RN - 12/09/2020 5:[address] Cindy Archuleta informed of patient arrival and assessment including the following: Reason for maternal/ assessment seeing spots and stars, ABD pain. status normal baseline,moderate variability, accelerations present and no decelerations, leaking vag fluid. Plan per provider/orders received for PIH eval, spec exam with ROM plus. Plan of Care - Halie Lange RN - 12/09/2020 4:33 PM CDT Data: Patient presented to [facility]: 12/09/2020 4:33 PM. Reason for maternal/ assessment is leaking vaginal fluid, R sided abdominal pain and seeing spots and stars. Patient is a . record reviewed. has been complicated by SVT and epilepsy. Gestational Age 32w0d. VSS. movement active. Patient denies uterine contractions, vaginal bleeding, pelvic pressure, nausea, vomiting. Support person is not present. Action: Verbal consent for EFM. Triage assessment completed. Bill of rights reviewed. Response: Patient verbalized agreement with plan. Will contact Dr Patti Nobles with update and for further orders. documented in this encounter Plan of Treatment Upcoming Encounters Date Type Specialty Care Team Description 04/28/2022 Office Visit Family Practice Anthony Doe PA-C [address] [place] [address] (Wo rk) 05/03/2022 Office Visit Dermatology Neil Kent M D [address] [place] [phone] (Wo rk) 05/05/2022 Office Visit Optometry Frankie Natalie e Radha, OD [address] [facility] [address] [place], [place] [phone] (Wo rk) 05/11/2022 Virtual Visit Pharm D Diana Desir , [facility] [address] [place], [place] [address] (Wo rk) 05/14/2022 Office Visit Cardiology Livan Sharif MD [address], [address] [place], [place] [address] (Wo rk) 05/31/2022 Office Visit Family Practice Valery Veronica PA-C [address] [place], [place] [address] (Wo rk) documented as of this encounter Procedures Procedure Name Priority Date/Time Associated Comments Diagnosis URIC ACID STAT 12/09/2020 6:19 PM Results f or this CDT procedure are i n the results section. CREATININE STAT 12/09/2020 6:19 PM Results f or this CDT procedure are i n the results section. AST STAT 12/09/2020 6:19 PM Results f or this CDT procedure are i n the results section. ALT STAT 12/09/2020 6:19 PM Results f or this CDT procedure are i n the results section. CBC WITH PLATELETS STAT 12/09/2020 6:19 PM Res ults for this CDT procedure are i n the results section. RUPTURE OF Routine 12/09/2020 6:00 PM Resul ts for this MEMBRANES BY ROM PLUS CDT proced ure are in the results section. ROUTINE UA WITH Routine 12/09/2020 5:30 PM Result s for this MICROSCOPIC REFLEX TO CDT proced ure are in CULTURE the results section. PROTEIN RANDOM URINE Routine 12/09/2020 5:30 PM R esults for this CDT procedure are i n the results section. documented in this encounter Results (ABNORMAL) Creatinine (12/09/2020 6:19 PM CDT) athologist Signature Creatinine 0.50 (L) 0.52 - 12/09/2020 [place] 1.04 mg/dL 7:02 PM [facility] GFR Estimate >90 >60 12/09/2020 [place] mL/min/{1. 7:02 PM [facility] 73_m2} [facility] Comment: Non GFR Calc Starting 06/27/2018, serum creatinine ba sed estimated GFR (eGFR) will be calculated using the Chronic Kidney Dise [facility] Epidemiology Collaboration (CKD-EPI) equation. GFR Estimate If >90 >60 mL/min/{1.73_m2} 12/09/2020 7: 02 PM [facility] Comment: GFR Calc Starting 06/27/2018, serum creatinine ba sed estimated GFR (eGFR) will be calculated using the Chronic Kidney Dise [facility] Epidemiology Collaboration (CKD-EPI) equation. Specimen Anatomical Collection Method Collection Time Receive d Time (Source) Location / / Volume Laterality Blood 12/09/2020 6:19 PM 6:20 CDT PM CDT Cindy Archuleta MD LAB - BLOOD ORDERABLES Performing Organization Address City/State/ZIP Code Phon e Number M [facility] [address] [address] [place] [address] [address] [address], [place] [phone] Uric acid (12/09/2020 6:19 PM CDT) athologist Signature Uric Acid 3.7 2.6 - 6.0 12/09/2020 [place] mg/dL 7:02 PM [facility] Specimen Anatomical Collection Method Collection Time Receive d Time (Source) Location / / Volume Laterality Blood 12/09/2020 6:19 PM 6:20 CDT PM CDT Cindy Archuleta MD LAB - BLOOD ORDERABLES Performing Organization Address City/State/ZIP Code Phon e Number M [facility] [address] [address] [phone] [place] [address] [address] [address], [place] [phone] ALT (12/09/2020 6:19 PM CDT) P athologist Signature ALT 18 0 - 50 U/L 12/09/2020 [place] 7:02 PM CDT [facility] Specimen Anatomical Collection Method Collection Time Receive d Time (Source) Location / / Volume Laterality Blood 12/09/2020 6:19 PM 6:20 CDT PM CDT Cindy Archuleta MD LAB - BLOOD ORDERABLES Performing Organization Address City/State/ZIP Code Phon e Number M [facility] [address] [address] [facility] [address] [address], [place] [phone] AST (12/09/2020 6:19 PM CDT) athologist Signature AST 13 0 - 45 U/L 12/09/2020 [place] 7:02 PM CDT [facility] Specimen Anatomical Collection Method Collection Time Receive d Time (Source) Location / / Volume Laterality Blood 12/09/2020 6:19 PM 6:20 CDT PM CDT Cindy Archuleta MD LAB - BLOOD ORDERABLES Performing Organization Address City/State/ZIP Code Phon e Number M [facility] [address] [address] [phone] [facility] [address] [address], [place] [phone] (ABNORMAL) CBC with platelets (12/09/2020 6:19 PM CDT) Analysis Performed At Patho logist Time Signature WBC 10.8 4.0 - 11.0 12/09/2020 [place] 10e9/L 6:40 PM [facility] RBC Count 3.76 (L) 3.8 - 5.2 12/09/2020 [place] 10e12/L 6:40 PM [facility] Hemoglobin 9.9 (L) 11.7 - 12/09/2020 [facility] 15.7 g/dL 6:40 PM [facility] Hematocrit 30.9 (L) 35.0 - 12/09/2020 [facility] 47.0 % 6:40 PM [facility] MCV 82 78 - 100 12/09/2020 [facility] fl 6:40 PM [facility] MCH 26.3 (L) 26.5 - 12/09/2020 [facility] 33.0 pg 6:40 PM [facility] MCHC 32.0 31.5 - 12/09/2020 [facility] 36.5 g/dL 6:40 PM [facility] RDW 13.1 10.0 - 12/09/2020 [facility] 15.0 % 6:40 PM [facility] Platelet Count 237 150 - 450 12/09/2020 [facility] 10e9/L 6:40 PM [facility] Specimen Anatomical Collection Method Collection Time Receive d Time (Source) Location / / Volume Laterality Blood 12/09/2020 6:19 PM 6:20 CDT PM CDT Cindy Archuleta MD LAB - BLOOD ORDERABLES Performing Organization Address City/State/ZIP Code Phon e Number [place] [phone] [place] [phone] Rupture of Membranes by ROM Plus (12/09/2020 6:00 PM CDT) P athologist Signature Rupture of Negative NEG^Negati 12/09/2020 [place] ve 6:46 PM CDT [facility] Membranes by [facility] ROM Plus Comment: It is recommended that the tests to dete ct rupture of the amniotic membranes should not be used without other clinica l assessments to make clinical patient management decision. Specimen Anatomical Collection Method Collection Time Receive d Time (Source) Location / / Volume Laterality Amniotic fluid 12/09/2020 6:00 PM 021 6:10 specimen CDT PM CDT (specimen) Patti Nobles MD LAB - BODY FLUIDS ORDERABLES Performing Organization Address City/State/ZIP Code Phon e Number M [facility] [address] [place], [place] [address] [facility] [address] [place], [place] [address] [facility] [phone] Protein random urine with Creat Ratio (12/09/2020 5:30 PM CDT) P athologist Signature Protein Random 0.16 g/L 12/09/2020 [place] Urine 7:04 PM CDT [facility] Protein Total 0.14 0 - 0.2 12/09/2020 [place] Urine g/gr g/g Cr 7:08 PM T [facility] Specimen Anatomical Collection Method Collection Time Receive d Time (Source) Location / / Volume Laterality Urine URINE SPECIMEN 12/09/2020 5:30 PM 021 5:51 OBTAINED BY CLEAN CDT PM CDT CATCH PROCEDURE / Unknown Cindy Archuleta MD LAB - URINE ORDERABLES Performing Organization Address City/State/ZIP Code Phon e Number M [facility] [address] [place] [address] [phone] [facility] [address] [place] [address], [place] [phone] (ABNORMAL) UA with Microscopic reflex to Culture (12/09/2020 5:30 PM CDT) Patholo gist Method Time Signature Color Urine Light Yellow 12/09/2020 [place] 6:12 PM [facility] Appearance Urine Slightly 12/09/2020 [place] Cloudy 6:12 PM [facility] Glucose Urine Negative NEG^Negat 12/09/2020 [place] shyam mg/dL 6:12 PM [facility] Bilirubin Urine Negative NEG^Negat 12/09/2020 [place] shyam 6:12 PM [facility] Ketones Urine Negative NEG^Negat 12/09/2020 [place] shyam mg/dL 6:12 PM [facility] Specific [place] 1.018 1.003 - 12/09/2020 [place] Urine 1.035 6:12 PM [facility] Blood Urine Negative NEG^Negat 12/09/2020 [place] shyam 6:12 PM [facility] pH Urine 7.0 5.0 - 7.0 12/09/2020 [place] pH 6:12 PM [facility] Protein Albumin Negative NEG^Negat 12/09/2020 [place] Urine shyam mg/dL 6:12 PM [facility] Urobilinogen Normal 0.0 - 2.0 12/09/2020 [place] mg/dL mg/dL 6:12 PM [facility] Nitrite Urine Negative NEG^Negat 12/09/2020 [place] shyam 6:12 PM [facility] Leukocyte Negative NEG^Negat 12/09/2020 [place] Esterase Urine shyam 6:12 PM [facility] Source [place] 12/09/2020 [place] 5:51 PM [facility] WBC Urine 3 0 - 5 12/09/2020 [facility] /HPF 6:12 PM [facility] RBC Urine 2 0 - 2 12/09/2020 [facility] /HPF 6:12 PM [facility] Bacteria Urine Few (A) NEG^Negat 12/09/2020 [place] shyam /HPF 6:12 PM [facility] Squamous 5 (H) 0 - 1 12/09/2020 [place] Epithelial /HPF /HPF 6:12 PM [facility] Mucous Urine Present (A) NEG^Negat 12/09/2020 [place] shyam /LPF 6:12 PM [facility] Specimen Anatomical Collection Method Collection Time Receive d Time (Source) Location / / Volume Laterality Urine URINE SPECIMEN 12/09/2020 5:30 PM 021 5:51 OBTAINED BY CLEAN T [facility] CATCH PROCEDURE / Unknown Patti Nobles MD LAB - URINE ORDERABLES Performing Organization Address City/State/ZIP Code Phon e Number M [facility] [address] [place] [address] [facility] [address] [phone] documented in this encounter Visit Diagnoses Diagnosis Encounter for triage in patient documented in this encounter Admitting Diagnoses Diagnosis Encounter for triage in patient documented in this encounter Administered Medications Inactive Administered Medications - up to 3 most recent administrations Medication Order MAR Action Action Date Dose Rate Site metoprolol succinate ER (TOPROL-XL) Given 12/09/2020 6:19 PM CDT 25 mg 24 hr tablet 25 mg 25 mg, Oral, DAILY, First dose on Tue12/09/20 at 1800, DO NOT CRUSH. Tablet may be split in half along score line. documented in this encounter Active and Recently Administered Medications Times are shown in CDT. Scheduled Medication Order 12/07/2020 12/08/2020 12/09/2020 metoprolol succinate ER (TOPROL-XL) 24 hr tablet 25 mg 181 (Given - Provider: Halie Lange, VJ) 25 mg, Oral, DAILY, First dose on 07/31 at 1800, DO NOT CRUSH. Tablet may be split in half along score line. documented in this encounter Additional Health Concerns Assessment Noted Time PHQ-9 Depression Total Score: 6 09/29/2020 3:25 PM CDT documented as of this encounter Care Teams Respiratory Services Manager Relationship Specialty Start Date End Date Marija Edgar APRN PCP - General Nurse Practitioner 04/30/20 AUTOMOTIVE PARTS INTERPRETER [address] [place] [address] Lita Oseguera Personal Advocate & 02/28/20 Liaison (PAL) Chanelle Mccann Assigned OBGYN Provider 05/02/20 05/09/21 [place] [address] [facility] [address] [place], [place] [address] Kyara De La Fuente, VJ Specialty Care Neurology 06/04/20 03/05/21 Coordinator Marija Edgar APRN Assigned PCP 06/08/20 AUTOMOTIVE PARTS INTERPRETER [address] [place], [place] [phone] Mynor Broussard MD Assigned Surgical 06/01/20 11/28/[address] [facility] Provider [address] [place] [phone] Mauri, Assigned Neuroscience 06/04/20 MD Keisha Provider [address] [place], [place] [address] Stacey Briones, [employer] Lead Log Chipper Operator Primary Care - CC 08/11/20 12/30/20 Galo Burrell MD Assigned Heart and 10/05/20 04/02/22 [address] Vascular Provider [address] [place], [place] [address] Lesley Moody, Community Health Worker 10/23/20 12/30/20 JOSE ALBERTO documented as of this encounter
--- OUTSIDE RECORDS SUMMARY | 2022-04-28 01:16 | XMS_ITS | Encounter Summary ---
:2000 Author Organization [facility] Address [address] [place] [address] Care Team Providers Name Role Phone Lita Oseguera Unavailable Unavailable Marija Edgar APRN CUTTER FINISHER Primary Care Provider [phone] Chanelle Mccann APRN CNM Unavailable + Kyara De La Fuente RN Unavailable Marija Edgar APRN CUTTER FINISHER Unavailable Mynor Broussard MD Unavailable Keisha Dotson MD Unavailable Stacey Briones CHILD PSYCHOLOGY TEACHER Unavailable Galo Burrell MD Unavailable Lesley Moody MA Unavailable Encounter Details Date Type Department Care Team Description 12/09/2020 Travel Social History Tobacco Use Types Packs/Day [...] How often do you attend pentecostalism or christian services? Never 09/22/2021 Do you [...] Office Visit Family Practice Anthony Doe PA-C [address] [place], [place] [phone] (Wo rk) 05/03/2022 Office Visit Dermatology Neil Kent M D [address] [place] [phone] (Wo rk) 05/05/2022 Office Visit Optometry Yeny David, OD [address] [facility] [address] [place] [phone] (Wo rk) 05/11/2022 Virtual Visit Pharm D Diana Desir , [facility] [address] [place], [place] [phone] (Wo rk) 05/14/2022 Office Visit Cardiology Livan Sharif MD [address], [address] [place], [place] [address] (Wo rk) 05/31/2022 Office Visit Family Practice Valery Veronica , PA-C [address] [place] [address] (Wo rk) documented as of this encounter Visit Diagnoses Not on filedocumented in this encounter Additional Health Concerns Assessment Noted Time PHQ-9 Depression Total Score: 6 09/29/2020 3:25 PM CDT documented as of this encounter Care Teams Ice Cream Mixer Relationship Specialty Start Date End Date Marija Edgar APRN PCP - General Nurse Practitioner 04/30/20 CUTTER FINISHER [address] [place] [address] Lita Oseguera Personal Advocate & 02/28/20 Liaison (PAL) Chanelle Mccann Assigned OBGYN Provider 05/02/20 05/09/21 [place] [address] [place] [address] [place], [place] [address] Kyara De La Fuente, VJ Specialty Care Neurology 06/04/20 03/05/21 Coordinator Marjia Edgar APRN Assigned PCP 06/08/20 CUTTER FINISHER [address] [place], [place] [phone] Mynor Broussard MD Assigned Surgical 06/01/20 11/28/21 [address] [facility] Provider [address] [place] [address] Mauri, Assigned Neuroscience 06/04/20 MD Keisha Provider [address] [place], [place] [address] Stacey Briones, CHILD PSYCHOLOGY TEACHER Lead Emr Analyst Primary Care - CC 08/11/20 12/30/20 Galo Burrell MD Assigned Heart and 10/05/20 04/02/22 [address] V[facility] Provider [address] [place], [place] [address] Lesley Moody, Community Health Worker 10/23/20 12/30/20 JOSE ALBERTO documented as of this encounter
--- OUTSIDE RECORDS SUMMARY | 2022-04-28 01:16 | XMS_ITS | Encounter Summary ---
:2000 Author Organization [place] Address [address] [place] [address]. [place] [address] Care Team Providers Name Role Phone Lita Oseguera Unavailable Unavailable Marija Edgar APRN FLAME BURNER Primary Care Provider [phone] Chanelle Mccann APRN CNM Unavailable + Kyara De La Fuente RN Unavailable Marija Edgar APRN FLAME BURNER Unavailable Mynor Broussard MD Unavailable Keisha Dotson MD Unavailable Galo Burrell MD Unavailable Encounter Details Date Type Department Care Team Description 01/09/2021 Hospital Encounter [facility] Saurabh Marcial Ind ication for [facility] P[place] in labor and [address] [facility] OBGYN delivery, antepartum [place], [place] SPECIALISTS [id number] 9668 [facility] [phone] [address] [facility] [address] [place], [place] [address] Social History Tobacco Use Types Packs/Day Years [...] How often do you attend cheondoism or sikhism services? Never 09/22/2021 Do you belong to any clubs or organizations such as No 09/22/2021 cheondoism groups, unions, [email or web address] or athletic groups, or school groups? How [...] been in contact with No / Unsure 12/27/2020 1:22 PM CDT someone who was confirmed [...] Care Team Description 04/28/2022 Office Visit Family [facility] Anthony Doe, PA-C [address] [place] [address] (Wo rk) 05/03/2022 Office Visit Dermatology Neil Kent M D [address] [place] [address] (Wo rk) 05/05/2022 Office Visit Optometry Yeny David, OD [address] [place] [id number] (Wo rk) 05/11/2022 Virtual Visit Pharm D Diana Desir , [facility] [address] [place], [place] [phone] (Wo rk) 05/14/2022 Office Visit Cardiology Livan Sharif MD [address] [facility] [address] [place], [place] [address] (Wo rk) 05/31/2022 Office Visit Family Practice Valery Veronica , [address] [place] [address] (Wo rk) documented as of this encounter Procedures Procedure Name Priority Date/Time Associated Diagnosis Comme nts SARS-COV-2 STAT 01/09/2021 10:44 AM Indication for care R esults for this (COVID-19) VIRUS CDT in labor and procedure a re in RT-PCR delivery, antepartum the res ults section. COVID-19 VIRUS STAT 01/09/2021 10:44 AM Indication for care Results for this (CORONAVIRUS) BY CDT in labor and procedure a re in PCR delivery, antepartum the res ults section. documented in this encounter Results SARS-CoV-2 COVID-19 Virus (Coronavirus) by PCR (01/09/2021 10:44 AM CDT) [facility] Method Time Signature SARS-CoV-2 Nasopharyngeal 01/09/2021 [facility] OF Virus 10:[address] [facility] Specimen CDT [facility] SARS-CoV-2 NEGATIVE 01/09/2021 [facility] PCR Result 10:20 PM [facility] Comment: SARS-CoV2 (COVID-19) RNA not de tected, presumed negative. SARS-CoV-2 PCR Testing was performed using the Xpert Xpress SARS-CoV-2 Assay on the [employer] Gene-Xpert 01/09/2021 10:20 PM [facility] Comment Instrument Systems. Addition al information about this Emergency Use Authorization (EUA) [facility] assay can be found via the Lab Guide. [facility] Comment: This test should be ordered for the dete ction of SARS-CoV-2 in individuals who meet SARS-CoV-2 clinical and/or epidemi ological criteria. Test performance is unknown in asymptomatic patients. This test is for in vitro diagnostic use under the FDA EUA for laboratories certified under CLIA to perform high com plexity testing. This test has not been FDA cleared or approved. A negative result does not rule out the presence of PCR inhibitors in the specimen or target RNA in concentration below the limit of detection for the assay. The possibility of a false negati ve should be considered if the patient's recent exposure or clinical pr esentation suggests COVID-19. This test was validated by the [facility]. This laboratory i s certified under the Clinical Laboratory Improvement Amendments of 198 8 (CLIA-88) as qualified to perform high complexity laboratory testing. Specimen (Source) Anatomical Collection Method Collection Time Re ceived Time Location / / Volume Laterality Specimen from 01/09/2021 10:44 01/09/2021 nasopharyngeal AM CDT 10:45 AM CDT structure (specimen) Saurabh Marcial MD LAB - MICRO GENERAL ORDERABL ES Performing Organization Address City/State/ZIP Code Phon e Number [facility] [address] [place] [address] [facility] Asymptomatic COVID-19 Virus (Coronavirus) by PCR (01/09/2021 10:44 AM CDT) Component Value Ref Test Analysis Performed At [facility] Range Method Time Signature COVID-19 Nasopharyngeal 01/09/2021 [place] [facility] Virus PCR to 10:45 AM [facility] U [facility] - CDT HOSPITAL Source COVID-19 Test received-See 01/09/2021 INFECTIOUS Virus PCR to reflex to IDDL 6:32 PM CDT [facility] [place] - test SARS CoV2 DIAGNOSTIC Result (COVID-19) Virus LABORATORY, RT-PCR [facility] Specimen (Source) Anatomical Collection Method Collection Time Re ceived Time Location / / Volume Laterality Specimen from 01/09/2021 10:44 01/09/2021 nasopharyngeal AM CDT 10:45 AM CDT structure (specimen) Saurabh Marcial MD LAB - MICRO GENERAL ORDERABL ES Performing Organization Address City/State/ZIP Code Phon e Number INFECTIOUS DISEASES [address] [place] [address] DIAGNOSTIC LABORATORY, [facility] [address] [place], [place] [address] [facility] [phone] documented in this encounter Visit Diagnoses Diagnosis Indication for care in labor and deliver y, antepartum Unspecified indication for care or inter vention related to labor and delivery, antepartum documented in this encounter Additional Health Concerns Assessment Noted Time PHQ-9 Depression Total Score: 6 09/29/2020 3:25 PM CDT documented as of this encounter Care Teams Excavating Machine Operator Relationship Specialty Start Date End Date Marija Edgar APRN PCP - General Nurse Practitioner 04/30/20 [place]URNER [address] [place] [address] Lita Oseguera Personal Advocate & 02/28/20 Liaison (PAL) Chanelle Mccann Assigned OBGYN Provider 05/02/20 05/09/21 ARLENE Mooney CNM [address] [place], [place] [address] Kyara De La Fuente, VJ Specialty Care Neurology 06/04/20 03/05/21 Coordinator Marija Edgar APRN Assigned PCP 06/08/20 FLAME [place]URNER [address] [place], [place] [phone] Mynor Broussard MD Assigned Surgical 06/01/20 11/28/21 [address] [place] Provider [address] [id number] Mauri, Melody Neuroscience 06/04/20 MD Keisha Provider [address] [place], [place] [address] Galo Burrell MD Assigned Heart and 10/05/20 04/02/22 [address] Vascular Provider [address] [place] [address] documented as of this encounter
--- OUTSIDE RECORDS SUMMARY | 2022-04-28 01:16 | XMS_ITS | Encounter Summary ---
:2000 Author Organization [facility] Address [address] [place] [address]. [place] [address] Care Team Providers Name Role Phone Lita Oseguera Unavailable Unavailable Marija Edgar APRN NURSING FACULTY Primary Care Provider [phone] Chanelle Mccann APRN CNM Unavailable + Kyara De La Fuente RN Unavailable Marija Edgar APRN NURSING FACULTY Unavailable Mynor Broussard MD Unavailable Keisha Dotson MD Unavailable Stacey Briones CROCODILE FARMER Unavailable Galo Burrell MD Unavailable Lesley Moody MA Unavailable Encounter Details Date Type Department Care Team Description 12/27/2020 Hospital Encounter [facility] Kulwinder Marcial irk Birthplace MD Pj [address] [facility] [place], [place] [address] [address] [facility] [address] [address] (Wo rk) Social History Tobacco Use [...] week 09/22/2021 How often do you attend samaritan or confucianism services? Never 09/22/2021 Do you belong to any clubs or organizations such as No 09/22/2021 samaritan groups, unions, fraternal or athletic groups, or [...] Sign Reading Time Taken Comments Blood Pressure 122/61 12/27/2020 12:35 PM CDT Pulse - - Temperature 37.1 ??C (98.7 ??F) 12/27/2020 12:20 PM CDT Respiratory Rate 18 12/27/2020 12:35 PM CDT Oxygen Saturation 97% 12/27/2020 1:04 PM CDT Inhaled Oxygen Concentration - - Weight - - Height - - Body Mass Index - - documented in this encounter Discharge Instructions Discharge InstructionsUrsula Negron RN - 12/27/2020 12:55 PM CDT Discharge Instruction for Undelivered Patients You were seen for: heart rate check and BP check We Consulted: Dr Marcial You had (Test or Medicine): BP check, HR check, and uterine monitoring Diet: Drink 8 to 12 glasses of liquids (milk, juice, water) every day. You may eat meals and snacks. Activity: Count kicks everyday (see handout) Call your doctor or nurse inspector machined parts if your baby is moving less than [...] discharge (note the color and amount) Other: Call clinic with any questions or concerns. Follow-up: As scheduled in the clinic this week. documented in this encounter Medications at Time [...] this encounter Miscellaneous Notes Provider Notification - Ursula Negron RN - 12/27/2020 1:15 PM CDT Data: Patient assessed in the Birthplace for HR and BP check. Cervical exam not examined. Membranes intact. Contractions/uterine assessment no contractions. Action: Presumed adequate oxygenation documented (see flow record). Discharge instructions reviewed. Patient instructed to report change in movement, vaginal leaking of fluid or bleeding, abdominal pain, or any concerns related to the to her nurse/physician. Response: Orders to discharge from OB but with further eval in ED for chest pain and SVT. Patient verbalized understanding of education and verbalized agreement with plan. Discharged to ED for further evaluation at 1316. Provider Notification - Ursula Negron RN - 12/27/2020 1:14 PM CDT 12/27/20 1308 Provider Notification Provider Name/Title Dr Marcial Method of Notification Phone Request Evaluate - Remote Notification Reason Status Update Pt stated she had a sharp pain in her right chest. Dr Marcial states she is cleared from OB standpoint but recommends eval in the ED. Pt will be brought to ED now. Provider Notification - Ursula Negron RN - 12/27/2020 12:49 PM CDT 12/27/20 1248 Provider Notification Provider Name/Title Dr Marcial Method of Notification Phone Request Evaluate - Remote Notification Reason Status Update Dr Saurabh Marcial informed of patient arrival and assessment including the following: Reason for maternal/ assessment BP and HR check. Pt reports this morning she had 2 episodes while sleeping of sudden shortness of breath that woke her from sleep. It took a few breaths to resolve this. Pt now feels generally unwell and has a heavy feeling in her upper right chest. Also stats she feels very hot. Updated on HR range 90-120's mostly, with a few spikes to 150 bpm. Pulse ox 97- 99%, Bps 120's/60's. Dr Marcial spoke with patient on the phone prior to her arrival and is familiar with her medical history.. status normal baseline, moderate variability, accelerations present and nodecelerations. Plan per provider/orders received for discharge to home.. Plan of Care - Ursula Negron RN - 12/27/2020 12:39 PM CDT Data: Patient presented to Birthplace: 12/27/2020 12:14 PM. Reason for maternal/ assessment is BP and HR check. Patient reports she had a bad headache last night which has since resloved. Also notes she has had visual floaters that are sometimes white and sometimes black for a couple weeks. What concerned her the most, was this morning she had 2 episodes while sleeping of sudden shortness of breath that woke her from sleep. It took a few breaths to resolve this. Pt now feels generally unwell andhas a heavy feeling in her upper right chest. Also stats she feels very hot. Patient is a . record reviewed. has been complicated by history of SVT on metoprolol and seizure history on keppra. Gestational Age 34w4d. VSS. movement active. Patient denies uterine contractions, leaking of vaginal fluid/rupture of membranes, vaginal bleeding. Support person is not present. Action: Verbal consent for EFM. Triage assessment completed. Bill of rights reviewed. Response: Patient verbalized agreement with plan. Will contact Dr Saurabh Marcial with update and for further orders. documented in this encounter Plan of Treatment Upcoming Encounters Date Type Specialty Care Team Description 04/28/2022 Office Visit [facility] Anthony Doe, PAUcheC [address] [place], [place] [phone] (Wo rk) 05/03/2022 Office Visit Dermatology Neil Kent M D [address] [place], [place] [address] (Wo rk) 05/05/2022 Office Visit Optometry Yeny David, OD [address] [place] [address] (Wo rk) 05/11/2022 Virtual Visit Pharm D Diana Desir , [facility] [address] [place], [place] [phone] (Wo rk) 05/14/2022 Office Visit Cardiology Livan Sharif MD [address] [facility] [address] [place], [place] [address] (Wo rk) 05/31/2022 Office Visit Family [facility] Valery Veronica PAUcheC [address] [place], [place] [address] (Wo rk) documented as of this encounter Visit Diagnoses Diagnosis Encounter for triage in patient documented in this encounter Admitting Diagnoses Diagnosis Encounter for triage in patient documented in this encounter Additional Health Concerns Assessment Noted Time PHQ-9 Depression Total Score: 6 09/29/2020 3:25 PM CDT documented as of this encounter Care Teams Mortgage Loan Originator Relationship Specialty Start Date End Date Marija Edgar APRN PCP - General Nurse Practitioner 04/30/20 NURSING FACULTY [address] [place], [place] [phone] Lita Oseguera Personal Advocate & 02/28/20 Liaison (PAL) Chanelle Mccann Assigned OBGYN Provider 05/02/20 05/09/21 [place] [address] [address] [facility] [address] [place], [place] [address] Kyara De La Fuente RN Specialty Care Neurology 06/04/20 03/05/21 Coordinator Marija Edgar APRN Assigned PCP 06/08/20 NURSING FACULTY [address] [place], [place] [phone] Mynor Broussard MD Assigned Surgical 06/01/20 11/28/[address] [place] Provider [address] [address] Mauri, Assigned Neuroscience 06/04/20 MD Keisha Provider [address] [place], [place] [address] Stacey Briones LSW Lead Parts Finisher Primary Care - CC 08/11/20 12/30/20 Galo Burrell MD Assigned Heart and 10/05/20 04/02/[address] Vascular Provider [address] [phone] Lesley Moody, Community Health Worker 10/23/20 12/30/20 JOSE ALBERTO documented as of this encounter
--- OUTSIDE RECORDS SUMMARY | 2022-04-28 01:16 | XMS_ITS | Encounter Summary ---
:2000 Author Organization [facility] Address [address] [place] [id number] Care Team Providers Name Role Phone Lita Oseguera Unavailable Unavailable Marija Edgar APRN [employer]ER Primary Care Provider [phone] Chanelle Mccann APRN CNM Unavailable + Kyara De La Fuente RN Unavailable Marija Edgar APRN FENCE GATE ASSEMBLER Unavailable Mynor Broussard MD Unavailable Keisha Dotson MD Unavailable Stacey Briones JUNIOR ESTIMATOR Unavailable Galo Burrell MD Unavailable Lesley Moody MA Unavailable Reason for Visit Reason Comments Shortness of Breath Palpitations Encounter Details Date Type Department Care Team Description 12/27/2020 [facility] Medhat Neal Chest luisana in, unspecified type; [facility] Emergency MD Skinny Dyspnea, unspecified type; Dept [facility] Palpitations [address] [place], [place] [address] [id number] [place] [address] [place], [place] [address] (Wo rk) Social History Tobacco Use Types [...] How often do you attend mormon or sabianism services? Never 09/22/2021 Do you belong to [...] Sign Reading Time Taken Comments Blood Pressure 123/69 12/27/2020 4:45 PM CDT Pulse 92 12/27/2020 4:45 PM CDT Temperature 36.4 ??C (97.6 ??F) 12/27/2020 1:29 PM CDT Respiratory Rate 24 12/27/2020 4:45 PM CDT Oxygen Saturation 97% 12/27/2020 4:45 PM CDT Inhaled Oxygen Concentration - - Weight - - Height - - Body Mass Index - - documented in this encounter Discharge Instructions AttachmentsThe following attachments cannot be sent through Care Everywhere. Palpitations (Thai)Shortness of Breath (Dyspnea) (Thai)Chest Pain, Noncardiac (Thai)documented in this encounter Medications at Time of [...] documented as of this encounter ED Notes Cristina Cordoba RN - 12/27/2020 1:28 PM CDT Pt presents with SOB and palpitations that started overnight. Pt states she has a hx SVT that has been worse over her . Pt is 35 weeks . Pt states she still feels a little SOB. Pt was seen and cleared in OB this morning and sent down here to be seen. Medhat Neal MD - 12/27/2020 1:22 PM CDT History Chief Complaint: Shortness of Breath and Palpitations The history is provided by the patient. Kim Johnson is a 20 year old female who is 35 weeks , , with history of SVT and asthma who presents with shortness of breath and palpitations. She has a history of SVT that has been gradually worsening over her and her current symptoms started last night. This morning she says that she had two episodes where she suddenly woke up unable to breathe. She also said that sometimesshe will have dark spots in her vision, which she also had this morning. She also says that she willusually have intermittent right chest pains that will be worsened when she lays down on her left side. She saw her OB this morning and was cleared and sent here for an evaluation. Review of Systems Eyes: Positive for visual disturbance. Respiratory: Positive for shortness of breath. Cardiovascular: Positive for chest pain (right) and palpitations. All other systems reviewed and are negative. Allergies: The patient has no known allergies. Medications: Folvite Keppra Toprol-XL Prilosec Zoloft vitamin Naprosyn Past Medical History: Anxiety CKD Depression GERD Psoriasis Seizure SVT Asthma Tobacco abuse Past Surgical History: Kidney surgery Family History: Heart disease Brain tumor Social History: Patient came from OB clinic. Patient was unaccompanied in the ED. Physical Exam Patient Vitals for the past 24 hrs: BP Temp Temp src Pulse Resp SpO2 12/27/20 1645 123/69 -- -- 92 24 97 % 12/27/20 1600 121/61 -- -- 82 17 98 % 12/27/20 1500 119/63 -- -- 81 15 98 % 12/27/20 1445 110/74 -- -- 99 22 97 % 12/27/20 1430 119/79 -- -- 91 15 97 % 12/27/20 1415 127/67 -- -- 92 10 97 % 12/27/20 1400 121/73 -- -- 96 -- 99 % 06/19/21 1329 118/72 97.6 ??F (36.4 ??C) Temporal 120 18 99 % Physical Exam Gen: well appearing, in no acute distress HENT: mmm, no rhinorrhea Eyes: periorbital tissues and sclera normal Neck: supple, no abnormal swelling Lungs: CTAB, no resp distress CV: rrr, no m/r/g, ppi Abd: soft, , gravid appropriate for dates, nontender, nondistended, no rebound/masses/guarding/hsm Ext: no peripheral edema Skin: warm, dry, well perfused, no rashes/bruising/lesions on exposed skin Neuro: alert, MAEE, no gross motor or sensory deficits, gait stable Psych: Normal mood, normal affect Emergency Department Course ECG ECG taken at 1345, ECG read at 1420 Normal sinus rhythm with sinus arrhythmia Normal ECG Rate 89 bpm. KY interval 122 ms. QRS duration 82 ms. QT/QTc 354/430 ms. P-R-T axes 48 48 12. Imaging: CT Chest Pulmonary Embolism w Contrast No pulmonary embolism demonstrated. US Lower Extremity Venous Duplex Bilateral No DVT demonstrated. Reading per radiology Laboratory: CBC: WBC 10.4, HGB 9.8 (L), PLT 238 BMP: GUN 6 (L), o/w WNL (Creatinine 0.63) Troponin (Collected 1501): <0.015 Ddimer: 0.9 (H) BNP: <5 Emergency Department Course: Reviewed: I reviewed nursing notes, vitals, past medical history and care everywhere Assessments: 1340 I obtained history and examined the patient as noted above. 1446 I rechecked the patient. 1650 I rechecked the patient, explained findings, and discussed discharge. Disposition: The patient was discharged to home. Impression & Plan Medical Decision Making: Kim Johnson is a 35 week 20 year old female presenting for palpitations and shortness of breath. No concerning cardiopulmonary process identified on ED evaluation today. Has follow up and being followed closely with her OB. Safe for discharge home. She is comfortable with plan and understands return precautions. Diagnosis: ICD-10-CM 1. Chest pain, unspecified type R07.9 2. Dyspnea, unspecified type R06.00 3. Palpitations R00.2 Discharge Medications: Discharge Medication List as of 12/27/2020 4:56 PM Scribe Disclosure: Cira, Sanchez Ramirez, am serving as a scribe at 2:03 PM on 12/27/2020 to document services personally performed by Medhat Neal MD based on my observations and the provider's statements to me. Medhat Neal MD 12/27/20 2619 documented in this encounter Plan of Treatment Upcoming Encounters Date Type Specialty Care Team Description 04/28/2022 Office Visit [facility] Anthony Doe, PAUcheC [address] [place], [place] [phone] (Wo rk) 05/03/2022 Office Visit Dermatology Neil Kent M D [address] [place], [place] [phone] (Wo rk) 05/05/2022 Office Visit Optometry Yeny David, OD [address] [place], [place] [phone] (Wo rk) 05/11/2022 Virtual Visit Pharm D Diana Desir , [facility] [address] [place], [place] [phone] (Wo rk) 05/14/2022 Office Visit Cardiology Livan Sharif MD [address] [facility], [facility] [address] [place], [place] [address] (Wo rk) 05/31/2022 Office Visit [facility] Valery Veronica PAUcheC [address] [place], [place] [phone] (Wo rk) documented as of this encounter Procedures Procedure Name Priority Date/Time Associated Comments Diagnosis CT CHEST PULMONARY STAT 12/27/2020 4:31 PM Res ults for this EMBOLISM W CONTRAST CDT procedur e are in the results section. US LOWER EXTREMITY STAT 12/27/2020 3:55 PM Res ults for this VENOUS DUPLEX CDT procedure are in BILATERAL the results section. CBC WITH PLATELETS & STAT 12/27/2020 3:01 PM R esults for this DIFFERENTIAL CDT procedure are i n the results section. TROPONIN I STAT 12/27/2020 3:01 PM Results f or this CDT procedure are i n the results section. NT PROBNP INPATIENT STAT 12/27/2020 3:01 PM Re sults for this CDT procedure are i n the results section. D DIMER QUANTITATIVE STAT 12/27/2020 3:01 PM R esults for this CDT procedure are i n the results section. BASIC METABOLIC PANEL STAT 12/27/2020 3:01 PM Results for this CDT procedure are i n the results section. EKG 12-LEAD, TRACING STAT 12/27/2020 1:45 PM R esults for this ONLY CDT procedure are i n the results section. documented in this encounter Results CT Chest Pulmonary Embolism w Contrast (12/27/2020 4:31 PM CDT) Anatomical Region Laterality Modality Chest, SUBRAD CT BODY, UMP CT CHEST Comp uted Tomography Specimen (Source) Anatomical Location Collection Method / Collectio n Time Received Time / Laterality Volume Impressions 12/27/2020 5:16 PM CDT IMPRESSION: 1. ??No pulmonary embolism demonstrated. CHIDI SCHWARTZ MD Narrative 12/27/2020 5:[address] CHEST PULMONARY EMBOLISM WITH CONTRAST 12/27/2020 4:31 PM CLINICAL HISTORY: Chest Pain. Shortness of breath, less than 35 weeks . Elevated D-dimer. Negative leg ultrasound. TECHNIQUE: CT angiogram chest during art erial phase injection IV contrast. 2D and 3D MIP reconstructions were performed by the learning technologist. Dose reduction techniques were used. CONTRAST: 71mL Isovue-370 COMPARISON: None. FINDINGS: ANGIOGRAM CHEST: Pulmonary arteries are normal caliber and negative for pulmonary emboli. Thoracic aorta is negative for dissection. No CT evidence of right heart strain. LUNGS AND PLEURA: Clear of infiltrate. N o effusions. MEDIASTINUM/AXILLAE: No adenopathy or an eurysm. UPPER ABDOMEN: No acute findings. MUSCULOSKELETAL: Survey of the visualize d bony structures demonstrates no destructive bony lesions. Procedure Note Chidi Schwartz MD - 12/27/2020Fo rmatting of this note might be different from the original. CT CHEST PULMONARY EMBOLISM WITH CONTRAS T 12/27/2020 4:31 PM CLINICAL HISTORY: Chest Pain. Shortness of breath, less than 35 weeks . Elevated D-dimer. Negative leg ultrasound. TECHNIQUE: CT angiogram chest during art erial phase injection IV contrast. 2D and 3D MIP reconstructions were performed by the learning technologist. Dose reduction techniques were used. CONTRAST: 71mL Isovue-370 COMPARISON: None. FINDINGS: ANGIOGRAM CHEST: Pulmonary arteries are normal caliber and negative for pulmonary emboli. Thoracic aorta is negative for dissection. No CT evidence of right heart strain. LUNGS AND PLEURA: Clear of infiltrate. N o effusions. MEDIASTINUM/AXILLAE: No adenopathy or an eurysm. UPPER ABDOMEN: No acute findings. MUSCULOSKELETAL: Survey of the visualize d bony structures demonstrates no destructive bony lesions. IMPRESSION: 1. No pulmonary embolism demonstrated. CHIDI SCHWARTZ MD Medhat Neal MD IMG CT ORDERABLES US Lower Extremity Venous Duplex Bilateral (12/27/2020 3:55 PM CDT) Anatomical Region Laterality Modality Vascular, Thigh, Leg Ultrasound Specimen (Source) Anatomical Location Collection Method / Collectio n Time Received Time / Laterality Volume Impressions 12/27/2020 5:15 PM CDT IMPRESSION: No DVT demonstrated. CHIDI SCHWARTZ MD Narrative 12/27/2020 5:15 PM CDT ULTRASOUND VENOUS LOWER EXTREMITY BILATERAL 12/27/2020 3:55 PM HISTORY: Shortness of breath. Chest pain in 35 week patient. COMPARISON: 08/06/2020 TECHNIQUE: Ultrasound cabrera scale, Color Doppler flow, and spectral Doppler waveform analysis performed. FINDINGS: The bilateral common femoral, superficial femoral, popliteal and posterior tibial veins are patent an d fully compressible and demonstrate normal venous Doppler flow. The visualized greater saphenous veins are negative for thrombu s. Procedure Note Chidi Schwartz MD - 12/27/2020Fo rmatting of this note might be different from the original. ULTRASOUND VENOUS LOWER EXTREMITY BILATE RAL 12/27/2020 3:55 PM HISTORY: Shortness of breath. Chest pain in 35 week patient. COMPARISON: 08/06/2020 TECHNIQUE: Ultrasound cabrera scale, Color Doppler flow, and spectral Doppler waveform analysis performed. FINDINGS: The bilateral common femoral, superficial femoral, popliteal and posterior tibial veins are patent an d fully compressible and demonstrate normal venous Doppler flow. The visualized greater saphenous veins are negative for thrombu s. IMPRESSION: No DVT demonstrated. CHIDI SCHWARTZ MD Medhat Neal MD IMG US ORDERABLES Nt probnp inpatient (BNP) (12/27/2020 3:01 PM CDT) athologist Signature N-Terminal Pro <5 0 - 450 12/27/2020 [place] BNP Inpatient pg/mL 3:49 PM CDT [facility] Comment: Reference range shown and results flagge d as abnormal are suggested inpatient cut points for confirming diagnosis if C HF in an acute setting. Establishing a baseline value for each individual shira ent is useful for follow-up. An inpatient or emergency department NT-pro PBNP <300 pg/mL effectively rules out acute CHF, with 99% negative predictive value. The outpatient non-acute reference range for ruling out CHF is: 0-125 pg/mL (age 18 to less than 75) 0-450 pg/mL (age 75 yrs and older) Specimen Anatomical Collection Method Collection Time Receive d Time (Source) Location / / Volume Laterality Blood 12/27/2020 3:01 PM 1 3:14 CDT PM CDT Medhat Neal MD LAB - BLOOD ORDERABLES Performing Organization Address City/State/ZIP Code Phon e Number M [facility] [address] [place] [address] [phone] [facility] [address] [place] [address], [facility] [phone] Troponin I (12/27/2020 3:01 PM CDT) athologist Signature Troponin I ES <0.015 0.000 - 12/27/2020 [place] 0.045 ug/L 3:38 PM CDT [facility] Comment: The 99th percentile for upper reference range is 0.045 ug/L. ??Troponin values in the range of 0.045 - 0.120 ug/L may b e associated with risks of adverse clinical events. Specimen Anatomical Collection Method Collection Time Receive d Time (Source) Location / / Volume Laterality Blood 12/27/2020 3:01 PM 1 3:14 CDT PM CDT Medhat Neal MD LAB - BLOOD ORDERABLES Performing Organization Address City/State/ZIP Code Phon e Number M [facility] [address] [place], [place] [address] [facility] [address] [place], [place] [address], [facility] [phone] (ABNORMAL) Basic metabolic panel (12/27/2020 3:01 PM CDT) athologist Signature Sodium 134 133 - 144 12/27/2020 [place] mmol/L 3:28 PM [facility] Potassium 3.9 3.4 - 5.3 12/27/2020 [place] mmol/L 3:28 PM [facility] Chloride 103 94 - 109 12/27/2020 [place] mmol/L 3:28 PM [facility] Carbon Dioxide 28 20 - 32 12/27/2020 [place] mmol/L 3:34 PM [facility] Anion Gap 3 3 - 14 12/27/2020 [place] mmol/L 3:34 PM [facility] Glucose 76 70 - 99 12/27/2020 [place] mg/dL 3:34 PM [facility] Urea Nitrogen 6 (L) 7 - 30 12/27/2020 [place] mg/dL 3:34 PM [facility] Creatinine 0.63 0.52 - 12/27/2020 [place] 1.04 mg/dL 3:34 PM [facility] GFR Estimate >90 >60 12/27/2020 [place] mL/min/{1. 3:34 PM [facility] 73_m2} [facility] Comment: Non GFR Calc Starting 06/27/2018, serum creatinine ba sed estimated GFR (eGFR) will be calculated using the Chronic Kidney Dise [facility] Epidemiology Collaboration (CKD-EPI) equation. GFR Estimate If >90 >60 mL/min/{1.73_m2} 12/27/2020 3: 34 PM [facility] Comment: GFR Calc Starting 06/27/2018, serum creatinine ba sed estimated GFR (eGFR) will be calculated using the Chronic Kidney Dise ase Epidemiology Collaboration (CKD-EPI) equation. Calcium 9.1 8.5 - 10.1 mg/dL 12/27/2020 3:34 PM CDT [facility] Specimen Anatomical Collection Method Collection Time Receive d Time (Source) Location / / Volume Laterality Blood 12/27/2020 3:01 PM 1 3:14 CDT PM CDT Medhat Neal MD LAB - BLOOD ORDERABLES Performing Organization Address City/State/ZIP Code Phon e Number M [facility] [address] [facility] [place] [address] [facility] [address] [place], [place] [address], [facility] [phone] [facility] [address] [place] [address], [facility] (ABNORMAL) D dimer quantitative (12/27/2020 3:01 PM CDT) athologist Signature D Dimer 0.9 (H) 0.0 - 0.50 12/27/2020 [place] ug/ml FEU 3:33 PM CDT [facility] Comment: This D-dimer assay is intended for use i n conjunction with a clinical pretest probability assessment model to exclude pulmonary embolism (PE) and deep venous thrombosis (DVT) in outpatients s uspected of PE or DVT. The cut-off value is 0.5 ug/mL FEU. Specimen Anatomical Collection Method Collection Time Receive d Time (Source) Location / / Volume Laterality Blood 12/27/2020 3:01 PM 1 3:14 CDT PM CDT Medhat Neal MD LAB - BLOOD ORDERABLES Performing Organization Address City/State/ZIP Code Phon e Number M [facility] [address] [place], [place] [address] [facility] [address] [place], [place] [address], [facility] [phone] (ABNORMAL) CBC with platelets differential (12/27/2020 3:01 PM CDT) Patholo gist Method Time Signature WBC 10.4 4.0 - 12/27/2020 [facility] 11.0 3:19 PM [facility] 10e9/L HOSPITAL RBC Count 3.80 3.8 - 5.2 12/27/2020 [facility] 10e12/L 3:19 PM [facility] Hemoglobin 9.8 (L) 11.7 - 12/27/2020 [facility] 15.7 g/dL 3:19 PM [facility] Hematocrit 31.5 (L) 35.0 - 12/27/2020 [facility] 47.0 % 3:19 PM [facility] MCV 83 78 - 100 12/27/2020 [facility] fl 3:19 PM [facility] MCH 25.8 (L) 26.5 - 12/27/2020 [facility] 33.0 pg 3:19 PM [facility] MCHC 31.1 (L) 31.5 - 12/27/2020 [facility] 36.5 g/dL 3:19 [facility] RDW 13.5 10.0 - 12/27/2020 [facility] 15.0 % 3:19 PM [facility] Platelet Count 238 150 - 450 12/27/2020 [facility] 10e9/L 3:19 [facility] Diff Method Automated 12/27/2020 [facility] Method 3:19 PM [facility] % Neutrophils 73.5 % 12/27/2020 [facility] 3:19 PM [facility] % Lymphocytes 15.7 % 12/27/2020 [facility] 3:19 [facility] % Monocytes 7.1 % 12/27/2020 [facility] 3:19 PM [facility] % Eosinophils 1.8 % 12/27/2020 [facility] 3:19 PM [facility] % Basophils 0.3 % 12/27/2020 [facility] 3:19 PM [facility] % Immature 1.6 % 12/27/2020 [facility] Granulocytes 3:19 [facility] Nucleated RBCs 0 0 /100 12/27/2020 [facility] 3:19 PM [facility] Absolute 7.7 1.6 - 8.3 12/27/2020 [facility] Neutrophil 10e9/L 3:19 [facility] Absolute 1.6 0.8 - 5.3 12/27/2020 [facility] Lymphocytes 10e9/L 3:19 PM [facility] Absolute 0.7 0.0 - 1.3 12/27/2020 [place] Monocytes 10e9/L 3:19 PM [facility] Absolute 0.2 0.0 - 0.7 12/27/2020 [place] Eosinophils 10e9/L 3:19 PM [facility] Absolute 0.0 0.0 - 0.2 12/27/2020 [place] Basophils 10e9/L 3:19 PM [facility] Abs Immature 0.2 0 - 0.4 12/27/2020 [place] Granulocytes 10e9/L 3:19 PM [facility] Absolute 0.0 12/27/2020 [place] Nucleated RBC 3:19 PM [facility] Specimen Anatomical Collection Method Collection Time Receive d Time (Source) Location / / Volume Laterality Blood 12/27/2020 3:01 PM 3:14 CDT PM CDT Medhat Neal MD LAB - BLOOD ORDERABLES Performing Organization Address City/State/ZIP Code Phon e Number [place] [address] [place] [address] [facility] [address] [phone] EKG 12 lead (12/27/2020 1:45 PM CDT) [place] gist Method Time Signature Interpretation ECG Click View RADIOLOGY Image link RESULTS to view waveform and result Specimen (Source) Anatomical Collection Method Collection Time Re ceived Time Location / / Volume Laterality 12/27/2020 1:45 PM CDT Medhat Neal MD ECG ORDERABLES Performing Organization Address City/[facility]/ZIP [facility] Phon e Number RADIOLOGY RESULTS documented in this encounter Visit Diagnoses Diagnosis Chest pain, unspecified type Dyspnea, unspecified type Palpitations documented in this encounter Administered Medications Inactive Administered Medications - up to 3 most recent administrations Medication Order MAR Action Action Date Dose Rate Site iopamidol (ISOVUE-370) solution 71 Given 12/27/2020 4:19 PM CDT 71 mLs mL 71 mL, Intravenous, ONCE, On 12/27/20 at 1620, For 1 dose sodium chloride (PF) 0.9% PF flush 89 mL Given 12/27/2020 4:20 PM CDT 89 mLs 89 mL, Intravenous, ONCE, On 12/27/20 at 1620, For 1 dose documented in this encounter Active and Recently Administered Medications Times are shown in CDT. Scheduled Medication Order 12/25/2020 12/26/2020 12/27/2020 iopamidol (ISOVUE-370) solution 71 mL (COMPLETED) 1619 (Given - Provider: RT [place]) 71 mL, Intravenous, ONCE, 12/27/20 at 1620, For 1 dose sodium chloride (PF) 0.9% PF flush 89 mL (COMPLETED) 1620 (Given - Provider: RT [place]) 89 mL, Intravenous, ONCE, 12/27/20 at 1620, For 1 dose documented in this encounter Additional Health Concerns Assessment Noted Time PHQ-9 Depression Total Score: 6 09/29/2020 3:25 PM CDT documented as of this encounter Care Teams Consultant In Ergonomics And Safety Relationship Specialty Start Date End Date Marija Edgar APRN PCP - General Nurse Practitioner 04/30/20 [employer] [address] [place], [place] [phone] Lita Oseguera Personal Advocate & 02/28/20 Liaison (PAL) Chanelle Mccann Assigned OBGYN Provider 05/02/20 05/09/21 ARLENE Mooney [facility] [address] [address] [address] [place], [place] [address] Kyara De La Fuente, VJ Specialty Care Neurology 06/04/20 03/05/21 Coordinator Marija Edgar APRN Assigned PCP 06/08/20 [employer] [address] [place], [place] [phone] Mynor Broussard MD Assigned Surgical 06/01/20 11/28/21 [address] [facility] Provider [address] [place], [place] [address] Mauri, Assigned Neuroscience 06/04/20 MD Keisha Provider [address] [place], [place] [phone] Stacey Briones, JUNIOR ESTIMATOR Lead Drier Transfer Car Operator Primary Care - CC 08/11/20 12/30/20 Galo Burrell MD Assigned Heart and 10/05/20 04/02/22 [address] [facility] Provider [address] [place], [place] [address] Lesley Moody, Community Health Worker 10/23/20 12/30/20 [place] documented as of this encounter
--- OUTSIDE RECORDS SUMMARY | 2022-04-28 01:16 | XMS_ITS | Encounter Summary ---
:2000 Author Organization [place] Address [address] [place] [address] Care Team Providers Name Role Phone Lita Oseguera Unavailable Unavailable Marija Edgar APRN LENS GENERATING MACHINE TENDER Primary Care Provider [phone] Chanelle Mccann APRN CNM Unavailable + Kyara De La Fuente RN Unavailable Marija Edgar APRN LENS GENERATING MACHINE TENDER Unavailable Mynor Broussard MD Unavailable Keisha Dotson MD Unavailable Stacey Briones NEUROSCIENTIST Unavailable Galo Burrell MD Unavailable Lesley Moody MA Unavailable Meredith Bedoya Unavailable Unavailable Cristina Wood Unavailable Unavailable Diana Desir [facility] Unavailable Rain Galaviz PA-C Unavailable [phone] Summer Lara MD Unavailable Summer Lara MD Unavailable Summer Lara MD Unavailable Tavia Wyatt MD Unavailable Unavailable Johnny Murillo MD Unavailable [phone] Erica Farrell APRN [facility] Unavailable + [phone] VikasTeresita Walter [facility] Unavailable [phone] Tavia Wyatt MD Unavailable Unavailable Diana Desir [facility] Unavailable Rich Barrett MD Unavailable [phone] Neil Kent MD Unavailable Roney Story DP Unavailable Erica Farrell APRN [facility] Unavailable + Diana Desir [facility] Unavailable Encounter Details Date Type Department Care Team Description 11/21/2020 [facility] Marija sellers APRN [place] [phone] [place] [phone] Social History Tobacco Use Types Packs/Day Years [...] week 09/22/2021 How often do you attend taoist or yarsanism services? Never 09/22/2021 Do you belong to any clubs or organizations such as No 09/22/2021 taoist groups, unions, fraternal or athletic groups, or [...] been in contact with No / Unsure 11/19/2020 1:03 AM CDT someone who was confirmed or suspected to have Coronavirus / COVID-19? documented as of this encounter Miscellaneous Notes Telephone Encounter - Magdalena Malave RN - 11/21/2020 11:38 AM CDT Prescription approved per [facility] Refill Protocol. Magdalena Malave RN on 11/21/2020 at 11:38 AM documented in this encounter Plan of Treatment Upcoming Encounters Date Type Specialty Care Team Description 04/28/2022 Office Visit Family Practice Anthony Doe PA-C [address] [place], [place] [phone] (Wo rk) 05/03/2022 Office Visit Dermatology Neil Kent M D [address] [place] [phone] (Wo rk) 05/05/2022 Office Visit Optometry Yeny David, [place] [address] [facility] [place] [phone] (Wo rk) 05/11/2022 Virtual Visit Pharm D Diana Desir , [facility] [address] [place], [place] [address] (Wo rk) 05/14/2022 Office Visit Cardiology Livan Sharif MD [address], [facility] [address] [place], [place] [phone] (Wo rk) 05/31/2022 Office Visit Family Practice Valery Veronica , [place] [address] [place] [address] (Wo rk) documented as of this encounter Visit Diagnoses Diagnosis Anxiety Anxiety state, unspecified Palpitations documented in this encounter Additional Health Concerns Infection Onset Date Last Indicated Resolved Time Rule Out COVID-19 05/11/2021 05/11/2021 05/13/2021 10: 18 AM CDT Rule Out COVID-19 07/13/2021 07/13/2021 07/14/2021 3:0 4 PM BOLT HEADER Rule Out COVID-19 07/18/2021 07/18/2021 07/20/2021 1:5 6 PM BOLT HEADER COVID-19 07/18/2021 07/18/2021 08/08/2021 11:39 PM BOLT HEADER Rule Out COVID-19 12/18/2021 12/18/2021 12/19/2021 11: 34 AM CDT Rule Out COVID-19 02/24/2022 02/24/2022 02/25/2022 1:0 8 PM CDT Rule Out COVID-19 04/26/2022 04/26/2022 04/26/2022 6:4 7 AM CDT Assessment Noted Time PHQ-9 Depression Total Score: 6 09/29/2020 3:25 PM CDT documented as of this encounter Care Teams Offline Cutter Relationship Specialty Start Date End Date Marija Edgar PCP - General Nurse Practitioner 04/30/20 BRUSH MAKER MACHINE LENS GENERATING MACHINE TENDER [address] [place], [place] [phone] Lita Oseguera Personal Advocate & 02/28/20 Liaison (PAL) Chanelle Mccann Assigned OBGYN Provider 05/02/20 05/09/21 Hope Vinicio, BRUSH MAKER MACHINE CNM [address] [place], [address] [place] [address] Kyara De La Fuente, VJ Specialty Care Neurology 06/04/20 03/05/21 Coordinator Marija Edgar, Assigned PCP 06/08/20 BRUSH MAKER MACHINE LENS GENERATING MACHINE TENDER [address] [place] [address] Mynor Broussard MD Assigned Surgical 06/01/20 11/28/[address] Provider [address] [place] [address] Mauri, Melody Neuroscience 06/04/20 MD Keisha Provider [address] [place], [place] [address] Stacey Briones, Lead Kier Drier Primary Care - CC 08/11/20 12/30/20 NEUROSCIENTIST Galo Burrell MD Assigned Heart and 10/05/20 04/02/22 [address] Vascular Provider [address] [place], [place] [address] Lesley Moody Community Health Worker 10/23/20 12/30/20 CJOSE ALBERTO Meredith Bedoya Financial Resource 10/23/20 11/23/20 Worker Cristina Wood Financial Resource 02/09/21 02/09/21 Worker Diana Desir, Pharmacist Pharmacist 04/17/21 [facility] [address] [place], [place] [phone] Rain Galaviz Physician Kitchen And Counter Worker Dermatology 04/28/21 ROVERTO Paredes [address] [facility] [address] [facility] [place] [phone] Summer Lara MD Assigned OBGYN Provider 05/10/21 05/23/[address] [place], [place] [phone] Summer Lara MD Assigned OBGYN Provider 05/31/21 03/12/[address] [place] [address] Summer Lara MD Assigned OBGYN Provider 05/24/21 05/30/[address] [place], [place] [phone] Tavia Wyatt MD Dermatology 07/14/21 Johnny Medrano Assigned Musculoskeletal 08/30/21 03/17/22 MD Ish Provider [address] [place] [address] Erica Farrell Nurse Practitioner Cardiovascular Disease 09/09/21 ARLENE Guidry LENS GENERATING MACHINE TENDER [address] [address] [place] [id number] Teresita Bean Pharmacist Pharmacist 09/24/21 09/29/21 Walter, [facility] [address] [place] [phone] Tavia Wyatt, Assigned Surgical 11/29/21 MD Provider Diana Desir, Assigned MTM Pharmacist 01/02/22 03/26/22 [facility] [address] [place], [place] [address] Rich Barrett Physician Ophthalmology 01/21/22 Gerson Reyes MD [address] [facility] [place] [address] Neil Kent MD MD Dermatology 02/24/22 [address] [place], [place] [phone] Roney Story, Assigned Musculoskeletal 03/20/22 DPM Provider [address] [facility] [address] [place], [place] [address] Erica Farrell Assigned Heart and 04/03/22 ARLENE Guidry [facility] Vascular Provider 1700 [place] [address] Diana Desir, Assigned MTM Pharmacist 04/07/22 [facility] [address] [place], [place] [address] documented as of this encounter
--- OUTSIDE RECORDS SUMMARY | 2022-04-28 01:16 | XMS_ITS | Encounter Summary ---
:2000 Author Organization [place] Address [address] [place] [address] Care Team Providers Name Role Phone Lita Oseguera Unavailable Unavailable Marija Edgar APRN RADIO MAINTAINER Primary Care Provider [phone] Chanelle Mccann APRN CN Unavailable + Kyara De La Fuente RN Unavailable Marija Edgar APRN RADIO MAINTAINER Unavailable Mynor Broussard MD Unavailable Keisha Dotson MD Unavailable Galo Burrell MD Unavailable Cristina Wood Unavailable Unavailable Diana Desir [facility] Unavailable Rain Galaviz PA-C Unavailable [phone] Summer Lara MD Unavailable Summer Lara MD Unavailable Summer Lara MD Unavailable Tavia Wyatt MD Unavailable Unavailable Johnny Murillo MD Unavailable [phone] Erica Farrell APRN RADIO MAINTAINER Unavailable Teresita Bean [facility] Unavailable [phone] Tavia Wyatt MD Unavailable Unavailable Dinaa Desir [facility] Unavailable Rich Barrett MD Unavailable Neil Kent MD Unavailable Roney Story DPM Unavailable Erica Farrell EDUCATIONAL PARAPROFESSIONAL RADIO MAINTAINER Unavailable + Diana Desir [facility] Unavailable Encounter Details Date Type Department Care Team Description 01/06/2021 Orders Only [facility] Saurabh Marcial Indication for care in Services - Surgical MD Pj labor and delivery, Specialties Service OBGYN SPECIA LISTS antepartum (Primary Line [address]x) [address] [facility] e [address] [place] [address] Social History Tobacco Use Types Packs/Day Years [...] How often do you attend baptist or baptist services? Never 09/22/2021 Do you [...] Office Visit Family Practice Anthony Doe PA-C [address] [place], [place] [phone] (Wo rk) 05/03/2022 Office Visit Dermatology Neil Kent M D [address] [place], [place] [address] (Wo rk) 05/05/2022 Office Visit Optometry Yeny David, OD [address] [facility] [address] [place] [phone] (Wo rk) 05/11/2022 Virtual Visit Pharm Diana Eckert , [facility] [address] [place], [place] [address] (Wo rk) 05/14/2022 Office Visit Cardiology Livan Sharif MD [address] , [facility] [address] [place], [place] [address] (Wo rk) 05/31/2022 Office Visit Family Practice Valery Veronica PA-C 9[address] [place] [address] (Wo rk) documented as of this encounter Results Asymptomatic COVID-19 Virus (Coronavirus) by PCR (01/09/2021 10:44 AM CDT) Component Value Ref Test Analysis Performed At Patholo gist Range Method Time Signature COVID-19 Nasopharyngeal 01/09/2021 [facility] Virus PCR to 10:45 AM [facility] Source COVID-19 Test received-See 01/09/2021 INFECTIOUS Virus PCR to reflex to IDDL 6:32 PM CDT DISEASES [facility] - test SARS CoV2 DIAGNOSTIC Result (COVID-19) Virus LABORATORY, RT-PCR [facility] Specimen (Source) Anatomical Collection Method Collection Time Re ceived Time Location / / Volume Laterality Specimen from 01/09/2021 10:44 01/09/2021 nasopharyngeal AM CDT 10:45 AM CDT structure (specimen) Saurabh Marcial MD LAB - MICRO GENERAL ORDERABL ES Performing Organization Address City/State/ZIP Code Phon e Number INFECTIOUS DISEASES [address] [place] [address] DIAGNOSTIC LABORATORY, [facility] [address] [phone] documented in this encounter Visit Diagnoses Diagnosis Indication for care in labor and deliver y, antepartum - Primary Unspecified indication for care or inter vention related to labor and delivery, antepartum documented in this encounter Additional Health Concerns Infection Onset Date Last Indicated Resolved Time Rule Out COVID-19 05/11/2021 05/11/2021 05/13/2021 10: 18 AM CDT Rule Out COVID-19 07/13/2021 07/13/2021 07/14/2021 3:0 4 PM MINIATURE SET CONSTRUCTOR Rule Out COVID-19 07/18/2021 07/18/2021 07/20/2021 1:5 6 PM MINIATURE SET CONSTRUCTOR COVID-19 07/18/2021 07/18/2021 08/08/2021 11:39 PM MINIATURE SET CONSTRUCTOR Rule Out COVID-19 12/18/2021 12/18/2021 12/19/2021 11: 34 AM CDT Rule Out COVID-19 02/24/2022 02/24/2022 02/25/2022 1:0 8 PM CDT Rule Out COVID-19 04/26/2022 04/26/2022 04/26/2022 6:4 7 AM CDT Assessment Noted Time PHQ-9 Depression Total Score: 6 09/29/2020 3:25 PM CDT documented as of this encounter Care Teams Tool Repairer Relationship Specialty Start Date End Date Marija Edgar, PCP - General Nurse Practitioner 04/30/20 EDUCATIONAL PARAPROFESSIONAL RADIO MAINTAINER [address] [place] [address] Lita Oseguera Personal Advocate & 02/28/20 Liaison (PAL) Chanelle Mccann Assigned OBGYN Provider 05/02/20 05/09/[address] [place] [address] [place], [address] [place] [address] Kyara De La Fuente, VJ Specialty Care Neurology 06/04/20 03/05/21 Coordinator Marija Edgar, Assigned PCP 06/08/20 EDUCATIONAL PARAPROFESSIONAL RADIO MAINTAINER [address] [place] [address] Mynor Broussard MD Assigned Surgical 06/01/20 11/28/21 [address] Provider [address] [place] [address] Mauri, Assigned Neuroscience 06/04/20 MD Keisha Provider [address]09 [place], [place] [address] Galo Burrell MD Assigned Heart and 10/05/20 04/02/22 [address] Vascular Provider [address] [place] [address] Cristina Wood Financial Resource 02/09/21 02/09/21 Worker Diana Desir, Pharmacist Pharmacist 04/17/21 [facility] [address] [place], [place] [address] Rain Galaviz Physician Asbestos Removal Worker Dermatology 04/28/21 ROVERTO Paredes [address] [place] [address] [address] [place], [place] [phone] Summer Lara MD Assigned OBGYN Provider 05/10/21 05/23/[address] [place], [place] [phone] Summer Lara MD Assigned OBGYN Provider 05/31/21 03/12/[address] [place], [place] [phone] Summer Lara MD Assigned OBGYN Provider 05/24/21 05/30/[address] [place], [place] [phone] Tavia Wyatt MD Dermatology 07/14/21 Johnny Medrano Assigned Musculoskeletal 08/30/21 03/17/22 MD Ish Provider [address] [place], [place] [phone] Erica Farrell Nurse Practitioner Cardiovascular Disease 09/09/21 ARLENE Guidry RADIO MAINTAINER [address] [facility] [address] [place] [address] Teresita Bean Pharmacist Pharmacist 09/24/21 09/29/21 Walter, [facility] [address] [facility] [place] [phone] Tavia Wyatt, Assigned Surgical 11/29/21 MD Provider Diana Desir, Assigned MTM Pharmacist 01/02/22 03/26/22 [facility] [address] [place] [address] Rich Barrett Physician Ophthalmology 01/21/22 Gerson Reyes MD 516 [facility] 9[address] [place], [place] [address] Neil Kent MD MD Dermatology 02/24/22 500 [place], [place] [address] Roney Story, Assigned Musculoskeletal 03/20/22 DPM Provider [address] [facility] [address] [place], [place] [address] Erica Farrell Assigned Heart and 04/03/22 ARLENE Guidry RADIO MAINTAINER Vascular Provider 1700 [place] [address] Diana Desir, Assigned MTM Pharmacist 04/07/22 [facility] [address] [place] [address] documented as of this encounter
--- OUTSIDE RECORDS SUMMARY | 2022-04-28 01:16 | XMS_ITS | Encounter Summary ---
:2000 Author Organization [facility] Address [address] [place] [address]. [place] [address] Care Team Providers Name Role Phone Lita Oseguera Unavailable Unavailable Marija Edgar APRN SKIP LOAD DRIVER Primary Care Provider [phone] Chanelle Mccann APRN CNM Unavailable + Kyara De La Fuente RN Unavailable Marija Edgar APRN SKIP LOAD DRIVER Unavailable Mynor Broussard MD Unavailable Keisha Dotson MD Unavailable Stacey Briones SCRAP PICKER Unavailable Galo Burrell MD Unavailable Lesley Moody MA Unavailable Reason for Visit Reason Comments Rule out Kidney Stone Encounter Details Date Type Department Care Team Description 12/12/[address] [facility] Issa Nobles MD Encounter for triage [facility] in patient [address] [facility] (Primary Dx) [place], [place] [address] [facility] [phone] [address] [place] [address] Social History Tobacco Use Types Packs/Day Years [...] How often do you attend uatsdin or jew services? Never 09/22/2021 Do you [...] Sign Reading Time Taken Comments Blood Pressure 110/66 12/12/2020 8:34 PM CDT Pulse - - Temperature 36.7 ??C (98.1 ??F) 12/12/2020 8:34 PM CDT Respiratory Rate 18 12/12/2020 8:34 PM CDT Oxygen Saturation - - Inhaled Oxygen Concentration - - Weight - - Height - - Body Mass Index - - documented in this encounter Discharge Instructions Discharge InstructionsBrea Lau RN - 12/12/2020 10:30 PM CDT Discharge Instruction for Undelivered Patients You were seen for: Assessment We Consulted: Dr. Sylvia Nobles You had (Test or Medicine): monitoring, urine analysis Diet: Drink 8 to 12 glasses of liquids (milk, juice, water) every day. You may eat meals and snacks. Activity: Call your doctor or nurse emergency room specialist if your baby is moving less than [...] underwear. Abdominal (lower belly) or stomach pain. *If less than 34 weeks: Contractions (tightenings) [...] this encounter Miscellaneous Notes Provider Notification - Brea Lau RN - 12/12/2020 10:24 PM CDT Aline Nobles updated re: UA results. No concerns OB. OK to discharge home and can followup in office for further concerns. Encouraged heat and Tylenol- discharge instructions reviewed and stated understanding. Left ambulatory Provider Notification - Brea Lau RN - 12/12/2020 9:[address] Aline Nobles updated: Lower abd pain better but having backache that radiates to front- was having kidney stone surgery to remove them when found out she was - doesn't think they passed. Cervix closed. Abdomen soft throughout- no cramps/ctx's noted from toco. UA sent and waiting for results. Will continue to monitor and update Plan of Care - Brea Lau RN - 12/12/2020 8:57 PM CDT Data: [facility]: 12/12/2020 8:28 PM. Reason for maternal/ assessment is lower abd cramping, rectal pressure, and back ache that radiates to front. Patient reports has lower abdpain that has been off and on today. Back ache started around 4pm. Was going to have surgery to havekidney stones removed when she found out she was . Doesn't think the stones have passed on their own. UA sent. Patient is a . record reviewed. has been complicated by seizure disorder, SVT's - states occurs regularly, and depression. Gestational Age 32w3d. VSS. movement active. Patient denies leaking of vaginal fluid/rupture of membranes, vaginal bleeding, pelvic pressure. Support person is not present. Action: Verbal consent for EFM. Triage assessment completed. Bill of rights reviewed. Response: Patient verbalized agreement with plan. Will contact Dr Issa Nobles with update and for further orders. documented in this encounter Plan of Treatment Upcoming Encounters Date Type Specialty Care Team Description 04/28/2022 Office Visit [facility] Anthony Doe PA-C [address] [place], [place] [phone] (Wo rk) 05/03/2022 Office Visit Dermatology Neil Kent M D [address] [place], [place] [phone] (Wo rk) 05/05/2022 Office Visit Optometry Yeny David, OD [address] [facility] [address] [place] [phone] (Wo rk) 05/11/2022 Virtual Visit Pharm D Diana Desir , [facility] [address] [place], [place] [phone] (Wo rk) 05/14/2022 Office Visit Cardiology Livan Sharif MD [address] , [facility] [address] [place], [place] [address] (Wo rk) 05/31/2022 Office Visit Family Practice Valery Veronica PA-C [address] [place] [address] (Wo rk) documented as of this encounter Procedures Procedure Name Priority Date/Time Associated Comments Diagnosis ROUTINE UA WITH STAT 12/12/2020 8:45 PM Result s for this MICROSCOPIC REFLEX TO CDT proced ure are in CULTURE the results section. documented in this encounter Results (ABNORMAL) UA with Microscopic reflex to Culture (12/12/2020 8:45 PM CDT) [facility] Method Time Signature Color Urine Light Yellow 12/12/2020 [facility] 9:33 PM [facility] Appearance Urine Clear 12/12/2020 [facility] 9:33 PM [facility] Glucose Urine Negative NEG^Negat 12/12/2020 [facility] shyam mg/dL 9:33 PM [facility] Bilirubin Urine Negative NEG^Negat 12/12/2020 [facility] shyam 9:33 PM [facility] Ketones Urine Negative NEG^Negat 12/12/2020 [facility] shyam mg/dL 9:33 PM [facility] Specific [place] 1.014 1.003 - 12/12/2020 [facility] Urine 1.035 9:33 PM [facility] Blood Urine Negative NEG^Negat 12/12/2020 [facility] shyam 9:33 PM [facility] pH Urine 7.0 5.0 - 7.0 12/12/2020 [facility] pH 9:33 PM [facility] Protein Albumin Negative NEG^Negat 12/12/2020 [facility] Urine shyam mg/dL 9:33 PM [facility] Urobilinogen Normal 0.0 - 2.0 12/12/2020 [facility] mg/dL mg/dL 9:33 PM [facility] Nitrite Urine Negative NEG^Negat 12/12/2020 [facility] shyam 9:33 PM [facility] Leukocyte Negative NEG^Negat 12/12/2020 [facility] Esterase Urine shyam 9:33 PM [facility] Source Midstream 12/12/2020 [facility] Urine 9:28 PM [facility] WBC Urine 2 0 - 5 12/12/2020 [facility] /HPF 9:33 PM [facility] RBC Urine 1 0 - 2 12/12/2020 [facility] /HPF 9:33 PM [facility] Bacteria Urine Few (A) NEG^Negat 12/12/2020 [facility] shyam /HPF 9:33 PM [facility] Squamous 1 0 - 1 12/12/2020 [place] Epithelial /HPF /HPF 9:33 PM [facility] Mucous Urine Present (A) NEG^Negat 12/12/2020 [place] shyam /LPF 9:33 PM [facility] Amorphous Moderate (A) NEG^Negat 12/12/2020 [facility] Crystals shyam /HPF 9:33 PM [facility] Specimen (Source) Anatomical Collection Method Collection Time Re ceived Time Location / / Volume Laterality Examination of URINE SPECIMEN 12/12/2020 8:45 12/13/19 21 9:28 midstream urine OBTAINED BY CLEAN PM CDT PM CDT specimen CATCH PROCEDURE / (procedure) Unknown Issa Nobles MD LAB - URINE ORDERABLES Performing Organization Address City/State/ZIP Code Phon e Number [place] [address] [place] [address] [phone] documented in this encounter Visit Diagnoses Diagnosis Encounter for triage in patient - Primary Encounter for triage in patient documented in this encounter Admitting Diagnoses Diagnosis Encounter for triage in patient documented in this encounter Administered Medications Inactive Administered Medications - up to 3 most recent administrations Medication Order MAR Action Action Date Dose Rate Site NO Rho (D) immune globulin (RhoGam) need ed - mother Rh NEGATIVE - NOT Clinically indicated at this time CONTINUOUS PRN, Starting on Tue12/12/20 at 2045, Until 12/13/20 at 0041 documented in this encounter Active and Recently Administered Medications Times are shown in CDT. PRN Medication Order 12/10/2020 12/11/2020 12/12/2020 NO Rho (D) immune globulin (RhoGam) need ed - mother Rh NEGATIVE - NOT Clinically indicated at this time CONTINUOUS PRN, Starting Tue12/12/20 at 2045, Until 12/13/20 at 0041 documented in this encounter Additional Health Concerns Assessment Noted Time PHQ-9 Depression Total Score: 6 09/29/2020 3:25 PM CDT documented as of this encounter Care Teams Pastoral Worker Relationship Specialty Start Date End Date Marija Edgar APRN PCP - General Nurse Practitioner 04/30/20 [address] [address] [place] [address] Lita Oseguera Personal Advocate & 02/28/20 Liaison (PAL) Chanelle Mccann Assigned OBGYN Provider 05/02/20 05/09/21 [place] [address] [address] [facility] [address] [place], [place] [address] Kyara De La Fuente RN Specialty Care Neurology 06/04/20 03/05/21 Coordinator Marija Edgar APRN Assigned PCP 06/08/20 SKIP LOAD DRIVER [address] [place] [address] Mynor Broussard MD Assigned Surgical 06/01/20 11/28/21 [address] DANNI Provider [address] [place] [phone] Mauri, Assigned Neuroscience 06/04/20 MD Keisha Provider [address] [place], [place] [address] Stacey Briones, SCRAP PICKER Lead Rod And Tube Straightener Primary Care - CC 08/11/20 12/30/20 Galo Burrell MD Assigned Heart and 10/05/20 04/02/22 [address] Vascular Provider [address] [place] [id number] Lesley Moody, Community Health Worker 10/23/20 12/30/20 [place] documented as of this encounter
--- OUTSIDE RECORDS SUMMARY | 2022-04-28 01:16 | XMS_ITS | Encounter Summary ---
:2000 Author Organization [facility] Address [address] [place] [address]. [place] [address] Care Team Providers Name Role Phone Lita Oseguera Unavailable Unavailable Marija Edgar APRN PLC TECHNICIAN Primary Care Provider [phone] Chanelle Mccann APRN CNM Unavailable + Kyara De La Fuente RN Unavailable Marija Edgar APRN PLC TECHNICIAN Unavailable Mynor Broussard MD Unavailable Keisha Dotson MD Unavailable Stacey Briones FIELD MAP EDITOR Unavailable Galo Burrell MD Unavailable Lesley Moody MA Unavailable Reason for Visit Reason Comments Follow Up office visit Encounter Details Date Type Department Care Team Description 12/05/2020 Office Visit [facility] Galo Burrell MD SVT (supraventricular tachycardia) (H) ( Primary Dx); [facility] [place] [address] Palpitations [address] [facility] [address] [facility] [address] [place] [address] [place] [id number] Social History Tobacco Use [...] How often do you attend lutheran or taoist services? Never 09/22/2021 Do you [...] Sign Reading Time Taken Comments Blood Pressure 118/67 12/05/2020 1:30 PM CDT Pulse 84 12/05/2020 1:30 PM CDT Temperature - - Respiratory Rate - - Oxygen Saturation - - Inhaled Oxygen Concentration - - Weight 97.5 kg (215 lb) 12/05/2020 1:30 PM 31 wk's preg nant CDT Height 170.2 cm (5' 7.01) 12/05/2020 1:30 PM CDT Body Mass Index 33.67 12/05/2020 1:30 PM CDT documented in this encounter Progress Notes Galo Burrell MD - 12/05/2020 2:01 PM CDT Service Date: 12/05/2020 I saw Ms. Clark for followup of SVT. She is a 20-year-old white female who is now 31 weeks with her first child. She saw me on 09/30 for evaluation of SVT that was symptomatic. She had a documented SVT on the monitor with heart rates of 187 beats per minute. At that time, I agreed for her tocontinue Toprol- XL 25 mg p.o. daily. The patient continues to experience recurrent SVT, but the duration is relatively short. A few days ago, she had a long episode that lasted for about 30 minutes with a heart rate of about 210 beats per minute. She was quite uncomfortable, but the arrhythmia terminated spontaneously. She did not have syncope or near syncope. 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 Otherwise, she feels occasional heavy heart beating, but no other major issues. Her is otherwise progressing relatively normally. PHYSICAL EXAMINATION: On examination, blood pressure was 118/67, heart rate 84 beats per minute, body weight 215 pounds. The cardiovascular system showed no remarkable abnormalities. ASSESSMENT AND RECOMMENDATIONS: Ms. Clark has recurrent symptomatic SVT. Fortunately, the duration is relatively short. It is not uncommon to have Wenckebach AV block during the night for people her age. That by itself should not be a concern for her current health status or future child delivery. Her SVT may or may not happen around the child's delivery. That can be terminated by Valsalva maneuver or IV adenosine. For the time being, I advised the patient to continue current dose of metoprolol. Ifthe SVT becomes frequent and long lasting, she may increase the dose of metoprolol to 50 mg once a day, but I would like her to take the medication in the morning instead of the evening. Her overall heart condition should not affect the method of her child delivery. I do not recommend a simply because of her heart condition. She is advised to return for Cardiology followup and discussion ofpossible SVT ablation after her child's delivery in the future. cc: Marija Edgar, PLC TECHNICIAN [facility] [address] [place] [address] Galo Burrell MD MT: adrián Name: KIM CLARK Account: [id number] : 2000 Service Date: 12/05/2020 Document: [id number] Galo Burrell MD - 12/05/2020 1:15 PM CDT HPI and Plan: See dictation Orders Placed This Encounter Procedures ??? EKG 12-lead complete w/read - Clinics (performed today) No orders of the defined types were placed in this encounter. There are no discontinued medications. Encounter Diagnoses Name Primary? SVT (supraventricular tachycardia) (H) Yes ??? Palpitations CURRENT MEDICATIONS: Current Outpatient Medications Medication Sig Dispense Refill ??? folic acid (FOLVITE) 1 MG tablet Take 1 tablet (1 mg) by mouth 2 times daily 180 tablet 3 ??? levETIRAcetam (KEPPRA) 500 MG tablet Take 1 tab twice a day for 1 week and then 1 1/2 tabs twicea day 90 tablet 3 ??? metoprolol succinate ER (TOPROL-XL) 25 MG 24 hr tablet Take 1 tablet (25 mg) by mouth daily 90 tablet 2 ??? omeprazole (PRILOSEC) [address] capsule Take 1 capsule (40 mg) by mouth daily 90 capsule 3 ??? Vit-Fe Fumarate-FA ( MULTIVITAMIN W/IRON) 27-0.8 MG tablet Take 1 tablet by mouth daily 90 tablet 3 ??? sertraline (ZOLOFT) 100 MG tablet TAKE ONE AND ONE-HALF TABLETS BY MOUTH EVERY DAY 135 tablet 0 ??? nitroFURantoin macrocrystal-monohydrate (MACROBID) 100 MG capsule Take 1 capsule (100 mg) by mouth 2 times daily 14 capsule 0 ALLERGIES No Known Allergies PAST MEDICAL HISTORY: Past Medical History: Diagnosis Date ??? Anxiety ??? Chronic kidney disease ??? Depressive disorder ??? Eczema ??? Gastroesophageal reflux disease ??? Seizure (H) 05/02/2019 ??? SVT (supraventricular tachycardia) (H) PAST SURGICAL HISTORY: Past Surgical History: Procedure Laterality Date ??? GENITOURINARY SURGERY FAMILY HISTORY: Family History Problem Relation Age of Onset ??? Heart Disease Maternal Grandfather ??? Brain Tumor Sister SOCIAL HISTORY: Social History Socioeconomic History ??? Marital status: Single Spouse name: None ??? Number of children: None ??? Years of education: None ??? Highest education level: 12th grade Occupational History ??? None Social Needs ??? Financial resource strain: Very hard ??? Food insecurity Worry: Often true Inability: Often true ??? Transportation needs Medical: No Non-medical: No Tobacco Use ??? Smoking status: Former Smoker Packs/day: 1.00 Types: Other Quit date: 12/07/2019 Years since quittin.9 ??? Smokeless tobacco: Never Used Substance and Sexual Activity ??? Alcohol use: Not Currently Frequency: Never Drinks per session: Patient refused Binge frequency: Never ??? Drug use: No ??? Sexual activity: Yes Partners: Male Lifestyle ??? Physical activity Days per week: 1 day Minutes per session: 30 min ??? Stress: To some extent Relationships ??? Social connections Talks on phone: Three times a week Gets together: Once a week Attends taoist service: More than 4 times per year Active member of club or organization: No Attends meetings of clubs or organizations: Never Relationship status: Never ??? Intimate partner violence Fear of current or ex partner: No Emotionally abused: No Physically abused: No Forced sexual activity: No Other Topics Concern ??? Parent/sibling w/ CABG, SC or angioplasty before 65F 55M? Not Asked Social History Narrative ??? None Review of Systems: Skin: Negative Eyes: Negative ENT: Negative Respiratory: Positive for dyspnea on exertion;shortness of breath Cardiovascular: palpitations;Positive for SVT Gastroenterology: Negative Genitourinary: Negative Musculoskeletal: Negative Neurologic: Positive for epilepsy Psychiatric: Positive for depression Heme/Lymph/Imm: Positive for anemia hx of anemia Endocrine: Negative Physical Exam: Vitals: BP 118/67 Pulse 84 Ht 1.702 m (5' 7.01) Wt 97.5 kg (215 lb) LMP 04/29/2020 BMI 33.67 kg/m?? Constitutional: cooperative, alert and oriented, well [...] Office Visit Family Practice Anthony Doe PA-C [address] [place] [address] (Wo aldo) 05/03/2022 Office Visit Dermatology Neil Kent M D [address] [place] [id number] (Wo rk) 05/05/2022 Office Visit Optometry Yeny David, OD [address] [address] (Wo rk) 05/11/2022 Virtual Visit Pharm D Diana Desir , [facility] [address] [place], [place] [phone] (Wo rk) 05/14/2022 Office Visit Cardiology Livan Sharif MD [address] [facility] [address] [place], [place] [phone] (Wo rk) 05/31/2022 Office Visit Family Practice Valery Veronica , [place] [address] [place] [address] (Wo rk) documented as of this encounter Procedures Procedure Name Priority Date/Time Associated Diagnosis Comme nts EKG 12-LEAD Routine 12/05/2020 2:39 PM SVT Results f or this COMPLETE W/READ - CDT (supraventricular proce dure are in CLINICS tachycardia) (H) the results Palpitations section. documented in this encounter Results EKG 12-lead complete w/read - Clinics (performed today) (12/05/2020 2:39 PM CDT) Narrative This result has an attachment that is no t available. Galo Burrell MD ECG ORDERABLES documented in this encounter Visit Diagnoses Diagnosis SVT (supraventricular tachycardia) (H) - Primary Other specified cardiac dysrhythmias Palpitations documented in this encounter Additional Health Concerns Assessment Noted Time PHQ-9 Depression Total Score: 6 09/29/2020 3:25 PM CDT documented as of this encounter Care Teams Button Cutter Relationship Specialty Start Date End Date Marija Edgar APRN PCP - General Nurse Practitioner 04/30/20 PLC TECHNICIAN [address] [place] [address] Lita Oseguera Personal Advocate & 02/28/20 Liaison (PAL) Chanelle Mccann Assigned OBGYN Provider 05/02/20 05/09/21 [place] [address] [place], [address] [place], [place] [phone] Kyara De La Fuente, VJ Specialty Care Neurology 06/04/20 03/05/21 Coordinator Marija Edgar APRN Assigned PCP 06/08/20 PLC TECHNICIAN [address] [place] [address] Mynor Broussard MD Assigned Surgical 06/01/20 11/28/21 [address] [place] Provider [address] [id number] Mauri, Melody Neuroscience 06/04/20 MD Keisha Provider [address] [place], [place] [address] Stacey Briones, FIELD MAP EDITOR Lead Signal Worker Primary Care - CC 08/11/20 12/30/20 Galo Burrell MD Assigned Heart and 10/05/20 04/02/22 [address] Vascular Provider [address] [place] [phone] Lesley Moody, Community Health Worker 10/23/20 12/30/20 [place] documented as of this encounter
--- OUTSIDE RECORDS SUMMARY | 2022-04-28 01:16 | XMS_ITS | Encounter Summary ---
:2000 Author Organization [facility] Address [address] [place] [address] Care Team Providers Name Role Phone Lita Oseguera Unavailable Unavailable Marija Edgar APRN PRODUCT REPRESENTATIVE Primary Care Provider [phone] Chanelle Mccann APRN CNM Unavailable + Kyara De La Fuente RN Unavailable Marija Edgar APRN PRODUCT REPRESENTATIVE Unavailable Mynor Broussard MD Unavailable Keisha Dotson MD Unavailable Stacey Briones OPERATIONAL TRAINER Unavailable Galo Burrell MD Unavailable Lesley Moody MA Unavailable Encounter Details Date Type Department Care Team Description 12/27/2020 Travel Social History Tobacco Use Types Packs/Day [...] How often do you attend restoration or gnosticist services? Never 09/22/2021 Do you [...] Office Visit Family Practice Anthony Doe PA-C [address] [place], [place] [phone] (Wo rk) 05/03/2022 Office Visit Dermatology Neil Kent M D [address] [place] [phone] (Wo rk) 05/05/2022 Office Visit Optometry Yeny David, OD [address] [place] [id number] (Wo rk) 05/11/2022 Virtual Visit Pharm D Diana Desir , [facility] [address] [place], [place] [phone] (Wo rk) 05/14/2022 Office Visit Cardiology Livan Sharif MD [address] [place], [place] [address] (Wo rk) 05/31/2022 Office Visit Family Practice Valery Veronica , PA-C [address] [place] [address] (Wo rk) documented as of this encounter Visit Diagnoses Not on filedocumented in this encounter Additional Health Concerns Assessment Noted Time PHQ-9 Depression Total Score: 6 09/29/2020 3:25 PM CDT documented as of this encounter Care Teams Junior Legal Secretary Relationship Specialty Start Date End Date Marija Edgar APRN PCP - General Nurse Practitioner 04/30/20 PRODUCT REPRESENTATIVE [address] [place] [address] Lita Oseguera Personal Advocate & 02/28/20 Liaison (PAL) Chanelle Mccann Assigned OBGYN Provider 05/02/20 05/09/21 [place] [address] [place], [facility] [address] [place], [place] [phone] Kyara De La Fuente, VJ Specialty Care Neurology 06/04/20 03/05/21 Coordinator Marija Edgar APRN Assigned PCP 06/08/20 PRODUCT REPRESENTATIVE [address] [place], [place] [phone] Mynor Broussard MD Assigned Surgical 06/01/20 11/28/21 [address] [facility] Provider [address] [address] Mauri, Assigned Neuroscience 06/04/20 MD Keisha Provider [address] [place], [place] [phone] Stacey Briones, OPERATIONAL TRAINER Lead Strip Stamp Straightener Primary Care - CC 08/11/20 12/30/20 Galo Burrell MD Assigned Heart and 10/05/20 04/02/22 [address] V[address] Provider [address] [place], [place] [phone] Lesley Moody, Community Health Worker 10/23/20 12/30/20 JOSE ALBERTO documented as of this encounter
--- OUTSIDE RECORDS SUMMARY | 2022-04-28 01:16 | XMS_ITS | Encounter Summary ---
:2000 Author Organization [facility] Address [address] [place] [address] Care Team Providers Name Role Phone Lita Oseguera Unavailable Unavailable Marija Edgar APRN REAL ESTATE SALES SUPERVISOR Primary Care Provider [phone] Chanelle Mccann APRN CNM Unavailable + Kyara De La Fuente RN Unavailable Marija Edgar APRN REAL ESTATE SALES SUPERVISOR Unavailable Mynor Broussard MD Unavailable Keisha Dotson MD Unavailable Stacey Briones GLASS RIBBON 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 Unavailable Galo Burrell MD Unavailable Lesley Moody MA Unavailable Reason for Visit Reason Comments Palpitations Encounter Details Date Type Department Care Team Description 12/13/2020 Emergency [facility] Fabián Chen MD Palpitations Emergency Dept [facility] [address] [place] [address] [place] [address] (Wo rk) Social History Tobacco Use Types [...] week 09/22/2021 How often do you attend taoism or sabianism services? Never 09/22/2021 Do you belong to any clubs or organizations such as No 09/22/2021 taoism groups, unions, fraternal or athletic groups, or [...] Sign Reading Time Taken Comments Blood Pressure 126/76 12/13/2020 9:30 PM CDT Pulse 89 12/13/2020 10:00 PM CDT Temperature 36.4 ??C (97.5 ??F) 12/13/2020 5:53 PM CDT Respiratory Rate 22 12/13/2020 8:00 PM CDT Oxygen Saturation 99% 12/13/2020 10:00 PM CDT Inhaled Oxygen Concentration - - Weight - - Height - - Body Mass Index - - documented in this encounter Discharge Instructions Discharge InstructionsFabián Chen MD - 12/13/2020 10:11 PM CDT Discharge Instructions Palpitations Palpitations are an unusual awareness of your heartbeat. People often describe this as the heart skipping, fluttering, racing, irregular, or pounding. At this time, your provider has found no signs that your palpitations are due to a serious or life-threatening condition. However, sometimes there is aserious problem that does not show up right away. Palpitations can be caused by caffeine, cigarettes, diet pills, energy drinks or supplements, other stimulants, and medications and street drugs. They can also be caused by anxiety, hormone conditions such as high thyroid, and other medical conditions. Sometimes they are a sign of abnormal rhythm in the heart. At this time, your provider did not find any dangerous cause of your symptoms. Generally, every Emergency Department visit should have a follow-up clinic visit with either a primary or a specialty clinic/provider. Please follow-up as instructed by your emergency provider today. Return to the Emergency Department if: You get chest pain or tightness. You are short of breath. You get very weak or tired. You pass out or faint. Your heart rate is over 120 beats per minute for more than 10 minutes while you are resting. You have anything else that worries you. What can I do to help myself? Fill any prescriptions the provider gave you and take them right away. Follow your provider???s instructions about the prescription medicines you are on. Sometimes the provider may tell you to stop taking a medicine or change the dose. If you smoke, this may be a good time to quit! The less you can smoke, the better. Do not use energy drinks, diet pills, or stimulants. Limit your use of caffeine. If you were given a prescription for [...] if there is anything that worries you. documented in this encounter Medications at Time [...] documented as of this encounter ED Notes Lizett Lipscomb RN - 12/13/2020 7:51 PM CDT Pt 32w 4d , primigravida. Hx SVT. HR 150s at home, waited and did not decrease so came to ED. Pt denies dizziness or nausea but sees black spots. L&D notified. Stanley Crow RN - 12/13/2020 5:52 PM CDT 32 weeks . Feels like her chest in pounding. Gradually getting worse. SOB. Hx of SVT in the past. Fabián Chen MD - 12/13/2020 5:49 PM CDT History Chief Complaint: Palpitations HPI Kim Johnson is a 20 year old female with history of SVT, seizures, CKD, and asthma who presents with palpitations. Patient is currently 32 weeks . For the past week and half, she has felt like her chest is pounding and beating very loudly. It has become progressively worse since its onset. She has had these symptoms before and was seen in the ED on 11/19 for similar symptoms. She follows with cardiology and an res habilitation assistant. She was seen yesterday by her OB for her chest pain. She also has complaints of minor vaginal leakage due to her but denies any bleeding. 09/05/20 Echo The visual ejection fraction is estimated at 55%. The right ventricle is normal in structure, function and size. There is trace to mild pulmonic valvular regurgitation. Giovani Miner MD Review of Systems Constitutional: Negative for chills and fever. Respiratory: Negative for cough. Cardiovascular: Positive for chest pain and palpitations. Negative for leg swelling. Gastrointestinal: Negative for abdominal pain and vomiting. Genitourinary: Positive for vaginal discharge. Negative for vaginal bleeding and vaginal pain. All other systems reviewed and are negative. Allergies: The patient has no known allergies. ?? Medications: Keppra Metoprolol Macrobid Prilosec Sertraline ?? Past Medical History: Anxiety CKD Depression Eczema GERD Seizure SVT Asthma Ureteral stones Psoriasis ?? Past Surgical History: surgery ?? Family History: Brain tumor - sister Social History: Presents with her mother. Physical Exam Patient Vitals for the past 24 hrs: BP Temp Temp src Pulse Resp SpO2 12/13/20 2200 -- -- -- 89 -- 99 % 12/13/200 126/76 -- -- 92 -- 96 % 12/13/202099 113/66 -- -- 100 -- 97 % 12/13/202029 121/64 -- -- 89 -- 97 % 12/13/201999 126/69 -- -- -- 22 99 % 12/13/20 1753 129/77 97.5 ??F (36.4 ??C) Temporal 122 24 97 % Physical Exam Constitutional: Well appearing. HEENT: Atraumatic. Moist mucous membranes. Neck: Soft. Supple. No JVD. Cardiac: Regular rate and rhythm. No murmur or rub. Respiratory: Clear to auscultation bilaterally. No respiratory distress. Abdomen: Gravid abdomen that is nontender to palpation. Musculoskeletal: No edema. Normal range of motion. Neurologic: Alert and oriented. Normal tone and bulk. Normal gait. Skin: No rashes. No edema. Psych: Normal affect. Normal behavior. Emergency Department Course ECG: ECG taken at 1810, ECG read at [address] Normal sinus rhythm. Nonspecific ST abnormality. Rate 94 bpm. [place] interval 136 ms. QRS duration 82 ms. QT/QTc 338/422 ms. P-R-T axes 42 53 28. Laboratory: CBC: WBC: 11.0, HGB: 10.0 (low), PLT: 234 CMP: Glucose 101 (H), Urea Nitrogen: 6 (low), Albumin: 2.6 (low), Creatinine: 0.51 (low) o/w WNL UA: Ketones: trace, Protein Albumin: 30, Leukocyte Esterase: small, WBC: 7 (H), RBC: 7 (H), Bacteria: many (!), Squamous Epithelial: 6 (H), Mucous: Present, Calcium Oxalate: few, o/w Negative Troponin (Collected 1911): <0.015 BNP: 22 Emergency Department Course: Reviewed: nursing notes, vitals, past medical history and care everywhere Assessments: 2014 Initial assessment 2214 I rechecked the patient and discussed the results of her workup thus far. Consults: none Interventions: None Disposition: The patient was discharged to home. Impression & Plan Medical Decision Making: .Name is a 1-year-old woman who is afebrile and hemodynamically stable. Her EKG demonstrates a sinusrhythm with no acute ischemic changes on my read. She was on cardiac monitoring here and had no SVT or other arrhythmias. Her lab work-up is otherwise noted as above and is reassuring. I discussed the potential PE with her, however, very low suspicion for PE as she has no pleuritic chest pain and is no longer tachycardic and has no hypoxia. This is also a longstanding issue for her that seems to haveworsened in . I reviewed her most recent cardiology appointment. They did discuss potentialincrease of her dose of metoprolol, however, she apparently had some bradycardia on recent Zio patch. I recommended close cardiology follow-up with the patient and she is in agreement understanding. Atthis point, I think she is safe to discharge home. She was evaluated by L&D and they have no concerns from the standpoint. Discussed supportive care at home and return precautions were given. She was in no distress at time of discharge. Diagnosis: ICD-10-CM 1. Palpitations R00.2 Discharge Medications: New Prescriptions No medications on file Scribe Disclosure: I, Marcelo Allan, am serving as a scribe at 8:12 PM on 12/13/2020 to document services personally performed by Fabián Chen MD based on my observations and the provider's statements to me. Fabián Chen MD 12/15/20211 Fabián Chen MD 12/15/20211 documented in this encounter Miscellaneous Notes Result Encounter Note - Bin Morton RN - 12/13/2020 10:38 PM CDT Final urine culture report shows NO GROWTH and is NEGATIVE. Recommendations in treatment per [facility] ED Lab result Urine culture protocol. Provider Notification - Mindy Singh RN - 12/13/2020 8:38 PM CDT 12/13/202037 Provider Notification Provider Name/Title Dr. Archuleta Method of Notification Phone Dr. Archuleta notified of Cat I NST, pt reports no change of symptoms since evaluation in L&D yesterday, ED has run labs, reviewed PreE labs and pt BP. Dr. Archuleta verbalized understanding, TORB to sign off for OB with pt unless other needs/concerns arise. Plan of Care - Mindy Singh RN - 12/13/2020 8:36 PM CDT To pt bedside to perform NST. Pt reports no changes since being assess in L&D yesterday evening.Denies UC's, vag bleeding, or leaking of fluid. Reports minimal vaginal discharge that has been stable for the last week or so. Uterus palpates soft and non tender. FHR Cat. I with no UC's present. Will update Dr. Archuleta with NST. Plan of Care - Elizabeth Rivera RN - 12/13/2020 6:[address] Archuleta, OB notified of pt arrival to ED for pounding chest. Notified that per ED report, pt is feeling baby move and having her normal aches and pains for but nothing new. Dr Archuleta would like pt to be seen in ED, once roomed in ED send OB RN to ED to obtain NST. OB chief strategy officer let ED storage battery charger know Dr Archuleta's plan documented in this encounter Plan of Treatment Upcoming Encounters Date Type Specialty Care Team Description 04/28/2022 Office Visit Family Practice Anthony Doe PA-C [address] [place] [address] (Wo rk) 05/03/2022 Office Visit Dermatology Neil Kent M D [address] [place], [place] [address] (Wo rk) 05/05/2022 Office Visit Optometry Yeny David, OD [address] [place] [address] (Wo rk) 05/11/2022 Virtual Visit Pharm Diana Eckert , [facility] [address] [place], [place] [address] (Wo rk) 05/14/2022 Office Visit Cardiology Livan Sharif MD [address], [address] [place], [place] [address] (Wo rk) 05/31/2022 Office Visit Family Practice Valery Veronica , [address] [place], [place] [id number] (Wo rk) documented as of this encounter Procedures Procedure Name Priority Date/Time Associated Diagnosis Comme nts ROUTINE UA WITH STAT 12/13/2020 8:40 Results f or this MICROSCOPIC REFLEX TO PM CDT proced ure are in CULTURE the results section. URINE CULTURE Routine 12/13/2020 8:40 Palpitations Results for this PM CDT procedure are i n the results section. TROPONIN I Routine 12/13/2020 7:12 Results for this PM CDT procedure are i n the results section. NT PROBNP INPATIENT Routine 12/13/2020 7:12 Resul ts for this PM CDT procedure are i n the results section. COMPREHENSIVE STAT 12/13/2020 7:12 Results for this METABOLIC PANEL PM CDT procedure ar e in the results section. CBC WITH PLATELETS STAT 12/13/2020 7:12 Result s for this PM CDT procedure are i n the results section. EKG 12-LEAD, TRACING STAT 12/13/2020 6:10 Resu lts for this ONLY PM CDT procedure are i n the results section. NON-STRESS TEST 12/13/2020 12:00 - HIM SCAN AM CDT documented in this encounter Results Urine Culture Aerobic Bacterial (12/13/2020 8:40 PM CDT) Component Value Ref Test Analysis Performed At [facility] Range Method Time Signature Specimen Midstream Urine INFECTIOUS Description [facility] Special Specimen 12/14/2020 INFECTIOUS Requests received in 1:14 AM [facility] DISEASES preservative DIAGNOSTIC LABORATORY, [facility] Culture Micro No growth 12/15/2020 INFECTIOUS 3:38 AM [facility] DISEASES DIAGNOSTIC LABORATORY, [facility] Specimen (Source) Anatomical Collection Method Collection Time Re ceived Time Location / / Volume Laterality Examination of 12/13/2020 8:40 12/13/2020 midstream urine PM CDT 10:45 PM CDT specimen (procedure) Fabián Chen MD LAB - MICRO GENERAL ORDERABL ES Performing Organization Address City/State/ZIP Code Phon e Number INFECTIOUS [facility]IC [address] [employer] [facility], [place] [address] LABORATORY, [facility] (ABNORMAL) UA with Microscopic reflex to Culture (12/13/2020 8:40 PM CDT) [facility] Method Time Signature Color Urine Yellow 12/13/2020 [facility] 9:27 PM [facility] Appearance Urine Slightly 12/13/2020 [facility] Cloudy 9:27 PM [facility] Glucose Urine Negative NEG^Negat 12/13/2020 [place] shyam mg/dL 9:27 PM [facility] Bilirubin Urine Negative NEG^Negat 12/13/2020 [facility] shyam 9:27 PM [facility] Ketones Urine Trace (A) NEG^Negat 12/13/2020 [place] mg/dL 9:27 PM [facility] Specific [place] 1.026 1.003 - 12/13/2020 [facility] Urine 1.035 9:27 PM [facility] Blood Urine Negative NEG^Negat 12/13/2020 [facility] shyam 9:27 PM [facility] pH Urine 6.5 5.0 - 7.0 12/13/2020 [facility] pH 9:27 PM [facility] Protein Albumin 30 (A) NEG^Negat 12/13/2020 [place] Urine shyam mg/dL 9:27 PM [facility] Urobilinogen Normal 0.0 - 2.0 12/13/2020 [facility] mg/dL mg/dL 9:27 PM [facility] Nitrite Urine Negative NEG^Negat 12/13/2020 [facility] shyam 9:27 PM [facility] Leukocyte Small (A) NEG^Negat 12/13/2020 [place] Esterase Urine shyam 9:27 PM [facility] Source Midstream 12/13/2020 [place] Urine 8:41 PM [facility] WBC Urine 7 (H) 0 - 5 12/13/2020 [facility] /HPF 9:27 PM [facility] RBC Urine 7 (H) 0 - 2 12/13/2020 [facility] /HPF 9:27 PM [facility] Bacteria Urine Many (A) NEG^Negat 12/13/2020 [place] /HPF 9:27 PM [facility] Squamous 6 (H) 0 - 1 12/13/2020 [place] Epithelial /HPF /HPF 9:27 PM [facility] Mucous Urine Present (A) NEG^Negat 12/13/2020 [place] /LPF 9:27 PM [facility] Hyaline Casts 1 0 - 2 12/13/2020 [facility] /LPF 9:27 PM [facility] Calcium Oxalate Few (A) NEG^Negat 12/13/2020 [place] /HPF 9:27 PM [facility] Specimen (Source) Anatomical Collection Method Collection Time Re ceived Time Location / / Volume Laterality Examination of 12/13/2020 8:40 12/13/2020 8:46 midstream urine PM CDT PM CDT specimen (procedure) Luis Angel Gonzalez BOILER SHOP MECHANIC REAL ESTATE SALES SUPERVISOR LAB - URINE ORDERABLES Performing Organization Address City/State/ZIP Code Phon e Number M [place] [address] [address] [facility] [address] [place], [place] [address] [facility] [phone] Troponin I (12/13/2020 7:12 PM CDT) athologist Signature Troponin I ES <0.015 0.000 - 12/13/2020 [place] 0.045 ug/L 8:57 PM [facility] Comment: The 99th percentile for upper reference range is 0.045 ug/L. ??Troponin values in the range of 0.045 - 0.120 ug/L may b e associated with risks of adverse clinical events. Specimen Anatomical Collection Method Collection Time Receive d Time (Source) Location / / Volume Laterality 12/13/2020 7:12 PM 7:19 CDT PM CDT Luis Angel Gonzalez APRN REAL ESTATE SALES SUPERVISOR LAB - BLOOD ORDERABLES Performing Organization Address City/[facility]/ZIP Code Phon e Number M [facility] [address] [place], [place] [address] [facility] [address] [place], [place] [address], [facility] [phone] Nt probnp inpatient (12/13/2020 7:12 PM CDT) P athologist Signature N-Terminal Pro 22 0 - 450 12/13/2020 [place] BNP Inpatient pg/mL 8:57 PM [facility] Comment: Reference range shown and results [...] Time (Source) Location / / Volume Laterality 12/13/2020 7:12 PM 7:19 CDT PM CDT Luis Angel Gonzalez APRN REAL ESTATE SALES SUPERVISOR LAB - BLOOD ORDERABLES Performing Organization Address City/[facility]/ZIP Code Phon e Number M [facility] [address] [place], [place] [address] [facility] [address] [place], [place] [address], [facility] [phone] (ABNORMAL) Comprehensive metabolic panel (12/13/2020 7:12 PM CDT) Analysis Performed At Patho logist Time Signature Sodium 136 133 - 144 12/13/2020 [place] mmol/L 7:51 PM [facility] Potassium 3.7 3.4 - 5.3 12/13/2020 [place] mmol/L 7:51 PM [facility] Chloride 105 94 - 109 12/13/2020 [place] mmol/L 7:51 PM [facility] Carbon Dioxide 23 20 - 32 12/13/2020 [place] mmol/L 7:58 PM [facility] Anion Gap 8 3 - 14 12/13/2020 [place] mmol/L 7:58 PM [facility] Glucose 101 (H) 70 - 99 12/13/2020 [place] mg/dL 7:58 PM [facility] Urea Nitrogen 6 (L) 7 - 30 12/13/2020 [place] mg/dL 7:58 PM [facility] Creatinine 0.51 (L) 0.52 - 12/13/2020 [place] 1.04 mg/dL 7:58 PM [facility] GFR Estimate >90 >60 12/13/2020 [place] mL/min/{1. 7:58 PM [facility] 73_m2} HOSPITAL Comment: Non GFR Calc Starting 06/27/2018, serum creatinine ba sed estimated GFR (eGFR) will be calculated using the Chronic Kidney Dise [facility] Epidemiology Collaboration (CKD-EPI) equation. GFR Estimate If >90 >60 mL/min/{1.73_m2} 12/13/2020 7: 58 PM [facility] Comment: GFR Calc Starting 06/27/2018, serum creatinine ba sed estimated GFR (eGFR) will be calculated using the Chronic Kidney Dise [facility] Epidemiology Collaboration (CKD-EPI) equation. Calcium 8.8 8.5 - 10.1 12/13/2020 7:58 PM [place] R IDGES mg/dL [facility] Bilirubin Total 0.2 0.2 - 1.3 mg/dL 12/13/2020 7:58 PM [facility] Albumin 2.6 (L) 3.4 - 5.0 g/dL 12/13/2020 7:58 PM DEVORAH MONTALVO [facility] Protein Total 6.9 6.8 - 8.8 g/dL 12/13/2020 7:58 PM CLOVIS IRHARRISON [facility] Alkaline Phosphatase 111 40 - 150 U/L 12/13/2020 7:58 PM [facility] ALT 17 0 - 50 U/L 12/13/2020 7:58 PM [facility] AST 9 0 - 45 U/L 12/13/2020 7:58 PM [facility] Specimen Anatomical Collection Method Collection Time Receive d Time (Source) Location / / Volume Laterality Blood 12/13/2020 7:12 PM 7:19 CDT PM CDT Luis Angel Gonzalez APRN REAL ESTATE SALES SUPERVISOR LAB - BLOOD ORDERABLES Performing Organization Address City/State/ZIP Code Phon e Number M [facility] [address] [place] [address] [facility] [address] [place] [address], [facility] [phone] [address], [facility] (ABNORMAL) CBC (platelets, no diff) (12/13/2020 7:12 PM CDT) Analysis Performed At Patho logist Time Signature WBC 11.0 4.0 - 11.0 12/13/2020 [facility] 10e9/L 7:27 PM [facility] RBC Count 3.84 3.8 - 5.2 12/13/2020 [facility] 10e12/L 7:27 PM [facility] Hemoglobin 10.0 (L) 11.7 - 12/13/2020 [facility] 15.7 g/dL 7:27 PM [facility] Hematocrit 31.4 (L) 35.0 - 12/13/2020 [facility] 47.0 % 7:27 PM [facility] MCV 82 78 - 100 12/13/2020 [facility] fl 7:27 PM [facility] MCH 26.0 (L) 26.5 - 12/13/2020 [facility] 33.0 pg 7:27 PM [facility] MCHC 31.8 31.5 - 12/13/2020 [facility] 36.5 g/dL 7:27 PM [facility] RDW 13.2 10.0 - 12/13/2020 [place] 15.0 % 7:27 PM CDT [facility] Platelet Count 234 150 - 450 12/13/2020 [place] 10e9/L 7:27 PM CDT [facility] Specimen Anatomical Collection Method Collection Time Receive d Time (Source) Location / / Volume Laterality Blood 12/13/2020 7:12 PM 7:19 CDT PM CDT Luis Angel Gonzalez APRN REAL ESTATE SALES SUPERVISOR LAB - BLOOD ORDERABLES Performing Organization Address City/State/ZIP Code Phon e Number [facility] [address] [place], [place] [address] [facility] [address] [address] [phone] EKG 12-lead, tracing only (12/13/2020 6:10 PM CDT) [facility] gist Method Time Signature Interpretation ECG Click View RADIOLOGY Image link RESULTS to view waveform and result Specimen (Source) Anatomical Collection Method Collection Time Re ceived Time Location / / Volume Laterality 12/13/2020 6:10 PM CDT Fabián Chen MD ECG ORDERABLES Performing Organization Address City/State/ZIP [facility] Phon e Number RADIOLOGY RESULTS NON-STRESS TEST - HIM SCAN (12/13/2020 12:00 AM CDT) Specimen (Source) Anatomical Location Collection Method / Collectio n Time Received Time / Laterality Volume 12/13/2020 Narrative This result has an attachment that is no t available. Provider Scan PROCEDURES documented in this encounter Visit Diagnoses Diagnosis Palpitations documented in this encounter Additional Health Concerns Assessment Noted Time PHQ-9 Depression Total Score: 6 09/29/2020 3:25 PM CDT documented as of this encounter Care Teams Farebox Repairer Relationship Specialty Start Date End Date Marija Edgar APRN PCP - General Nurse Practitioner 04/30/20 REAL ESTATE SALES SUPERVISOR [address] [place] [address] Lita Oseguera Personal Advocate & 02/28/20 Liaison (PAL) Chanelle Mccann Assigned OBGYN Provider 05/02/20 05/09/21 ARLENE Mooney CNM [address] [place], [address] [place], [place] [address] Kyara De La Fuente, VJ Specialty Care Neurology 06/04/20 03/05/21 Coordinator Marija Edgar APRN Assigned PCP 06/08/20 REAL ESTATE SALES SUPERVISOR [address] [place] [address] Mynor Broussard MD Assigned Surgical 06/01/20 11/28/21 [address] [place] Provider [address] [address] Mauri, Melody Neuroscience 06/04/20 MD Keisha Provider [address] [place], [place] [address] Stacey Briones, GLASS RIBBON 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 Lead [employer] [facility] [employer] Director Primary Care - CC 08/11/20 12/30/20 Galo Burrell MD Assigned Heart and 10/05/20 04/02/22 [address] Vascular Provider [address] [place] [id number] Lesley Moody, Community Health Worker 10/23/20 12/30/20 [place] documented as of this encounter
--- OUTSIDE RECORDS SUMMARY | 2022-04-28 01:16 | XMS_ITS | Encounter Summary ---
:2000 Author Organization [place] Address [address] [place] [address] Care Team Providers Name Role Phone Lita Oseguera Unavailable Unavailable Marija Edgar APRN GLOBAL ACCOUNT EXECUTIVE Primary Care Provider [phone] Chanelle Mccann APRN CNM Unavailable + Kyara De La Fuente RN Unavailable Marija Edgar APRN GLOBAL ACCOUNT EXECUTIVE Unavailable Mynor Broussard MD Unavailable Keisha Dotson MD Unavailable Stacey Briones FARM PRODUCT PURCHASER Unavailable Galo Burrell MD Unavailable Lesley Moody MA Unavailable Meredith Bedoya Unavailable Unavailable Encounter Details Date Type Department Care Team Description 11/19/2020 Ancillary Procedure [facility] Medhat Neal MD [address] [facility] [place], [place] [address] [address] [phone] [address] [place], [place] [address] (Wo rk) Social History Tobacco Use Types [...] How often do you attend catholic or worship services? Never 09/22/2021 Do you [...] Office Visit Family Practice Anthony Doe PA-C [address] [place] [address] (Wo rk) 05/03/2022 Office Visit Dermatology Neil Kent M D 500 [place], [place] [address] (Wo rk) 05/05/2022 Office Visit Optometry Yeny David, OD [address] [facility] [address] [place], [place] [phone] (Wo rk) 05/11/2022 Virtual Visit Pharm D Diana Desir , [facility] [address] [place], [place] [address] (Wo rk) 05/14/2022 Office Visit Cardiology Livan Sharif MD [address], [address] [place], [place] [address] (Wo rk) 05/31/2022 Office Visit Family Practice Valery Veronica , PAUcheC [address] [place], [place] [address] (Wo rk) documented as of this encounter Procedures Procedure Name Priority Date/Time Associated Diagnosis Comme nts POC US ECHO LIMITED STAT 11/19/2020 1:23 AM Re sults for this CDT procedure are i n the results section. documented in this encounter Results POC US ECHO LIMITED (11/19/2020 1:23 AM CDT) Anatomical Region Laterality Modality Other Specimen (Source) Anatomical Location Collection Method / Collectio n Time Received Time / Laterality Volume Impressions 11/19/2020 1:23 AM CDT PROCEDURE NOTE --> Emergency Bedside Ultrasound Procedure Name: Bedside Cardiac Ultrasou nd Preformed by: Medhat Neal MD Indication - Chest Pain, Shortness of Br eath, Palpitations Probe: Phased array probe Curvilinear parobe Windows - ?PSLA ?Limited right up per quadrant views Findings - Contractility -normal Pericardial Fluid -none Pneumothorax -not present ?No B-lines bilateral l carl jo ?Mid right upper quadra nt views no cholelithiasis or fluid in the right upper quadrant Impression -unremarkable bedside limited echo and right upper quadrant views Images saved to PACS protocol Medhat Neal MD IMG POCUS documented in this encounter Visit Diagnoses Not on filedocumented in this encounter Additional Health Concerns Assessment Noted Time PHQ-9 Depression Total Score: 6 09/29/2020 3:25 PM CDT documented as of this encounter Care Teams Answerer Relationship Specialty Start Date End Date Marija Edgar APRN PCP - General Nurse Practitioner 04/30/20 GLOBAL ACCOUNT EXECUTIVE [address] [place] [address] Lita Oseguera Personal Advocate & 02/28/20 Liaison (PAL) Chanelle Mccann Assigned OBGYN Provider 05/02/20 05/09/21 [place] [address] [facility] [address] [place] [address] Kyara De La Fuente, VJ Specialty Care Neurology 06/04/20 03/05/21 Coordinator Marija Edgar APRN Assigned PCP 06/08/20 GLOBAL ACCOUNT EXECUTIVE [address] [place], [place] [phone] Mynor Broussard MD Assigned Surgical 06/01/20 11/28/21 6[address] [facility] Provider 500 [place], [place] [address] Mauri, Assigned Neuroscience 06/04/20 MD Keisha Provider 909 [place] [address] Stacey Briones LSW Lead Physician Asst Primary Care - CC 08/11/20 12/30/20 Galo Burrell MD Assigned Heart and 10/05/20 04/02/22 [address] Vascular Provider [address] [place] [id number] Lesley Moody, Community Health Worker 10/23/20 12/30/20 [place] Meredith Bedoya Financial Resource Worker 10/23/20 11/23/20 documented as of this encounter
--- OUTSIDE RECORDS SUMMARY | 2022-04-28 01:17 | XMS_ITS | Encounter Summary ---
:2000 Author Organization [place] Address [address] [place] [address] Care Team Providers Name Role Phone Lita Oseguera Unavailable Unavailable Marija Edgar APRN SUPERVISOR BEET END Primary Care Provider [phone] Chanelle Mccann APRN CNM Unavailable + Kyara De La Fuente RN Unavailable Marija Edgar APRN SUPERVISOR BEET END Unavailable Mynor Broussard MD Unavailable Keisha Dotson MD Unavailable Stacey Briones PHYSICAL THERAPY ASSISTANT Unavailable Galo Burrell MD Unavailable Lesley Moody MA Unavailable Meredith Bedoya Unavailable Unavailable Encounter Details Date Type Department Care Team Description 11/05/2020 Travel Social History Tobacco Use Types Packs/Day [...] How often do you attend judaism or confucianism services? Never 09/22/2021 Do you [...] been in contact with No / Unsure 11/05/2020 1:25 PM CDT someone who was confirmed or suspected to have Coronavirus / COVID-19? documented as of this encounter Plan of Treatment Upcoming Encounters Date Type Specialty Care Team Description 04/28/2022 Office Visit Family Practice Anthony Doe PA-C [address] [place], [place] [phone] (Wo rk) 05/03/2022 Office Visit Dermatology Neil Kent M D 500 [place], [place] [address] (Wo rk) 05/05/2022 Office Visit Optometry Yeny David, OD [address] [facility] [place] [phone] (Wo rk) 05/11/2022 Virtual Visit Pharm D Diana Desir , [facility] [address] [place] [address] (Wo rk) 05/14/2022 Office Visit Cardiology Livan Sharif MD [address] [facility] [address] [place], [place] [address] (Wo rk) 05/31/2022 Office Visit Family Practice Valery Veronica PAUcheC 909 [place] [address] (Wo rk) documented as of this encounter Visit Diagnoses Not on filedocumented in this encounter Additional Health Concerns Infection Onset Date Last Indicated Resolved Time Rule Out COVID-19 11/05/2020 11/05/2020 11/06/2020 1:0 9 PM CDT Assessment Noted Time PHQ-9 Depression Total Score: 6 09/29/2020 3:25 PM CDT documented as of this encounter Care Teams Family Law Mediator Relationship Specialty Start Date End Date Marija Edgar APRN PCP - General Nurse Practitioner 04/30/20 SUPERVISOR BEET END [address] [place] [address] Lita Oseguera Personal Advocate & 02/28/20 Liaison (PAL) Chanelle Mccann Assigned OBGYN Provider 05/02/20 05/09/21 [place] [address], [address] [place], [place] [address] Kyara De La Fuente, VJ Specialty Care Neurology 06/04/20 03/05/21 Coordinator Marija Edgar APRN Assigned PCP 06/08/20 SUPERVISOR BEET END [address] [place], [place] [phone] Mynor Broussard MD Assigned Surgical 06/01/20 11/28/21 [address] [place] Provider [address] [place] [address] Mauri, Melody Neuroscience 06/04/20 MD Keisha Provider 909 [place], [place] [address] Stacey Briones, [facility] Lead Project Controller Primary Care - CC 08/11/20 12/30/20 Galo Burrell MD Assigned Heart and 10/05/20 04/02/22 [address] Vascular Provider [address] [place] [address] Lesley Moody, Community Health Worker 10/23/20 12/30/20 [place] Meredith Bedoya Financial Resource Worker 10/23/20 11/23/20 documented as of this encounter
--- OUTSIDE RECORDS SUMMARY | 2022-04-28 01:17 | XMS_ITS | Encounter Summary ---
:2000 Author Organization [place] Address [address] [place] [address] Care Team Providers Name Role Phone Lita Oseguera Unavailable Unavailable Marija Edgar APRN EVP HEAD OF [employer] EXPERIENCE STRATEGY Primary Care Provider Chanelle Mccann APRN CNM Unavailable + Kyara De La Fuente RN Unavailable Marija Edgar APRN EVP HEAD OF [employer] EXPERIENCE STRATEGY Unavailable Mynor Broussard MD Unavailable Keisha Dotson MD Unavailable Stacey Briones CLEANER OPERATOR Unavailable Galo Burrell MD Unavailable Lesley Moody MA Unavailable Meredith Bedoya Unavailable Unavailable Encounter Details Date Type Department Care Team Description 10/30/2020 Travel Social History Tobacco Use Types Packs/Day [...] How often do you attend religious or synagogue services? Never 09/22/2021 Do you [...] been in contact with No / Unsure 10/30/2020 7:50 AM CDT someone who was confirmed or suspected to have Coronavirus / COVID-19? documented as of this encounter Plan of Treatment Upcoming Encounters Date Type Specialty Care Team Description 04/28/2022 Office Visit Family Practice Anthony Doe PA-C [address] [place], [place] [phone] (Wo rk) 05/03/2022 Office Visit Dermatology Neil Kent M D 500 [place], [place] [address] (Wo rk) 05/05/2022 Office Visit Optometry Yeny David, OD [address] [facility] [place] [phone] (Wo rk) 05/11/2022 Virtual Visit Pharm D Diana Desir , [facility] [address] [place] [address] (Wo rk) 05/14/2022 Office Visit Cardiology Livan Sharif MD [address], [facility] [address] [place], [place] [address] (Wo rk) 05/31/2022 Office Visit Family Practice Valery Veronica , PA-C 909 [place] [address] (Wo rk) documented as of this encounter Visit Diagnoses Not on filedocumented in this encounter Additional Health Concerns Assessment Noted Time PHQ-9 Depression Total Score: 6 09/29/2020 3:25 PM CDT documented as of this encounter Care Teams Young Adult Librarian Relationship Specialty Start Date End Date Marija Edgar APRN PCP - General Nurse Practitioner 04/30/20 EVP HEAD OF [employer] EXPER[employer]ENCE STRATEGY [address] [place], [place] [phone] Lita Oseguera Personal Advocate & 02/28/20 Liaison (PAL) Chanelle Mccann Assigned OBGYN Provider 05/02/20 05/09/21 [place] [address] [facility] [address] [place], [place] [phone] Kyara De La Fuente, VJ Specialty Care Neurology 06/04/20 03/05/21 Coordinator Marija Edgar APRN Assigned PCP 06/08/20 EVP HEAD [employer] [address] [place], [place] [phone] Mynor Broussard MD Assigned Surgical 06/01/20 11/28/21 [address] [place] Provider 500 [place] [address] Mauri, Assigned Neuroscience 06/04/20 MD Keisha Provider 909 [place] [address] Stacey Briones, CLEANER OPERATOR Lead Tankman Primary Care - CC 08/11/20 12/30/20 Galo Burrell MD Assigned Heart and 10/05/20 04/02/22 [address] Vascular Provider [address] [place] [address] Lesley Moody, Community Health Worker 10/23/20 12/30/20 [place] Meredith Bedoya Financial Resource Worker 10/23/20 11/23/20 documented as of this encounter
--- OUTSIDE RECORDS SUMMARY | 2022-04-28 01:17 | XMS_ITS | Encounter Summary ---
:2000 Author Organization [facility] Address [address] [place] [address] Care Team Providers Name Role Phone Lita Oseguera Unavailable Unavailable Marija Edgar APRN EQUITY TRADER Primary Care Provider [phone] Chanelle Mccann APRN CNM Unavailable + Kyara De La Fuente RN Unavailable Marija Edgar APRN EQUITY TRADER Unavailable Mynor Broussard MD Unavailable Keisha Dotson MD Unavailable Stacey Briones MACHINE FEEDER FLOORPERSON Unavailable Mary Mejia Unavailable Unavailable Encounter Details Date Type Department Care Team Description 10/03/2020 Travel Social History Tobacco Use Types Packs/Day [...] How often do you attend sikhism or christianity services? Never 09/22/2021 Do you [...] been in contact with No / Unsure 10/03/2020 2:50 PM CDT someone who was confirmed or suspected to have Coronavirus / COVID-19? documented as of this encounter Plan of Treatment Upcoming Encounters Date Type Specialty Care Team Description 04/28/2022 Office Visit Family Practice Anthony Doe, ROVERTO [address] [place] [address] (Wo rk) 05/03/2022 Office Visit Dermatology Neil Kent M D 500 [place] [address] (Wo rk) 05/05/2022 Office Visit Optometry Yeny David, OD [address] [facility] [place] [address] (Wo rk) 05/11/2022 Virtual Visit Pharm Diana Eckert , [facility] [address] [place] [address] (Wo rk) 05/14/2022 Office Visit Cardiology Livan Sharif MD [address], [facility] [address] [place] [address] (Wo rk) 05/31/2022 Office Visit Family Practice Valery Veronica PAUcheC 9[address] [place], [place] [address] (Wo rk) documented as of this encounter Visit Diagnoses Not on filedocumented in this encounter Additional Health Concerns Assessment Noted Time PHQ-9 Depression Total Score: 6 09/29/2020 3:25 PM CDT documented as of this encounter Care Teams Senior Sales Director Relationship Specialty Start Date End Date Marija Edgar APRN PCP - General Nurse Practitioner 04/30/20 EQUITY TRADER [address] [place] [address] Lita Oseguera Personal Advocate & 02/28/20 Liaison (PAL) Chanelle Mccann Assigned OBGYN Provider 05/02/20 05/09/21 [place] [address] [address] [facility], [facility] 200 [place], [place] [address] Kyara De La Fuente, VJ Specialty Care Neurology 06/04/20 03/05/21 Coordinator Marija Edgar APRN Assigned PCP 06/08/20 EQUITY TRADER [address] [place], [place] [phone] Mynor Broussard MD Assigned Surgical 06/01/20 11/28/21 [address] [facility] Provider 500 [place], [place] [address] Keisha Dotson, Assigned Neuroscience 06/04/20 MD Provider [address] [place] [address] Stacey Briones LSW Lead Acquisition Analyst Primary Care - CC 08/11/20 12/30/20 Mary Mejia Financial Resource 09/02/20 3/03/31 Worker documented as of this encounter
--- OUTSIDE RECORDS SUMMARY | 2022-04-28 01:17 | XMS_ITS | Encounter Summary ---
:2000 Author Organization [place] Address [address] [place] [address] Care Team Providers Name Role Phone Lita Oseguera Unavailable Unavailable Marija Edgar APRN FEDERAL LAW CLERK Primary Care Provider [phone] Chanelle Mccann APRN CNM Unavailable + Kyara De La Fuente RN Unavailable Marija Edgar APRN FEDERAL LAW CLERK Unavailable Mynor Broussard MD Unavailable Keisha Dotson MD Unavailable Stacey Briones SENIOR ACCOUNT DIRECTOR Unavailable Mary Mejia Unavailable Unavailable Galo Burrell MD Unavailable Cristina Wood Unavailable Unavailable Lesley Moody MA Unavailable Meredith Bedoya Unavailable Unavailable Reason for Referral CV Testing (Routine) - Closed Specialty Diagnoses / Procedures Referred By Contact Refer red To Contact Cardiology Diagnoses SVT (supraventricular tachycardia) (H) Hooks Ump Hrt Cardio Ctr Rh Cv Cardiac Svc Rscc Procedures Leadless quality intern 8 to 14 Days ZZHC EXT ECG > 48HR TO 21 DAY RCRD W/CONECT INTL RCRD ZZC EXT ECG > 48HR TO 21 DAY REVIEW AND INTERPRETATN AL EXT ECG > 48HR TO 21 DAY RCRD W/CONECT INTL RCRD [address] [facility] [address] [facility] AL EXT ECG > 48HR TO 21 DAY REVIEW AND INTERPRETATN HC EXT ECG > 48HR TO 21 DAY RCRD W/CONECT INTL RD [address] [place] [address] [place] [address] Phone: Fax: Referral ID Status Reason Start Date Expiration Date Visits Requ ested Visits Authorized [id number] Closed 10/22/2020 10/22/2021 1 1 Reason for Visit Reason Onset Date Comments SVT episodes 10/03/2020 Encounter Details Date Type Department Care Team Description 10/03/2020 Telephone [facility] Rico Rendon RN SVT episodes [place] [address] [facility] [address] [place] [phone] Social History Tobacco Use Types Packs/Day Years [...] How often do you attend catholic or presybeterian services? Never 09/22/2021 Do you belong to [...] Telephone Encounter - Joanne Portillo RN - 10/27/2020 1:23 PM CDT 10/27/20 Spoke w pt who had a question about he ZP and possibly wanting to change the date of when its applied. She has a baby shower coming up and is worried the monitor will be visible in her baby shower pictures. Explained the size of the ZP and that there are no wires or boxes attached and that it is pretty invisible under clothes and shouldn't be a problem underneath a regular short or dress. Pt states she will keep ZP appt and probably just change what she will wear to the baby shower. KHerroRN 125 pm Telephone Encounter - Alexus Avalos RN - 10/23/2020 10:47 AM CDT Pt had left a message yesterday afternoon for Joanne. Made pt aware that Joanne is out of the office today, but to call back if this process description writer can help her. JNelsonRN Telephone Encounter - Joanne Portillo RN - 10/22/2020 10:14 AM CDT 10/22/[address] Burrell I would offer her the following, she can choose one of them: 1. Wear a Ziopatch for 2 weeks to assess the burden of SVT, then make medication changes based on the results. 2. Add digoxin 0.25 mg daily now. Pt notified and voiced that she would like to wear the monitor for more detail for Dr Burrell to review. Order placed, pt transferred to scheduling. Pt voiced understanding and agreement with plan. KHerroRN 1015 am Telephone Encounter - Galo Burrell MD - 10/22/2020 8:52 AM CDT I would offer her the following, she can choose one of them: 1. Wear a Ziopatch for 2 weeks to assess the burden of SVT, then make medication changes based on the results. 2. Add digoxin 0.25 mg daily now. Telephone Encounter - Joanne Portillo RN - 10/21/2020 4:41 PM CDT 10/21/20 Pt called with update on how she has been feeling in the past 2 weeks. Her Svt episodes have not changed as she continues to get them daily . They occur off and on for afew minutes but never lasting longer than 30 minutes. She notices them when she is moving or changing positions and especially when she is showering in hot water. She still feels very Sob and feels her heart beating hard She is currently taking Metoprolol ER 25 mg every day. She did not take the advice of splitting the pill in 1/2 to take twice daily. Pt is [address] update [address] Burrell and call pt back with recommendations. Pt voiced understanding and agreement with plan. KHerroRN 445 pm Telephone Encounter - Joanne Portillo RN - 10/21/2020 9:33 AM CDT 10/21/20 Pt LM on Afib RN line after hours yesterday. Attempted to call pt back, LM and requested callback. ROGERerroRN 935 am Telephone Encounter - Alexus Avalos RN - 10/07/2020 10:23 AM CDT Discussed with pt about Dr Burrell interpretation on my note to him. Her condition will not cause long-term damage to her heart or her baby. It causes some discomfort. As planned, we will fix it after her baby is born. Pt is due in January and wondering about the day that she gives and if she has SVT. Did discuss that OB MD that will be working with pt will give her guidance for the day of the procedure. If they have questions they can also reach out to Dr Burrell. Joe Telephone Encounter - Galo Burrell MD - 10/07/2020 10:07 AM CDT Her condition will not cause long-term damage to her heart or her baby. It causes some discomfort. As planned, we will fix it after her baby is born. Telephone Encounter - Alexus Avalos RN - 10/06/2020 5:18 PM CDT Pt called and states that her Dr wondered about the harder beat and that she can see her Heart beating and is this ok for her heart. Pt states that this occurs even when heart is not racing. Pt states that prior to being present pt could see her heart beating and also feel that her heart was beating hard. Pt feels the beating when she is laying down and also can see when sitting up. Pt wondering if this is ok for her heart. Will send this message to Dr Burrell, but did tell pt as this is not new there should not be a problem. Joe Telephone Encounter - Margaret Rendon RN - 10/06/2020 3:14 PM CDT Spoke to patient regarding recommendations per Dr Burrell: ---It is ok to stay status quo. Patient wants to try to split her metoprolol dose to bid (12.5mg twice daily). She will start this tomorrow 10/07. I asked patient to keep a diary of her events (durationand HR and what maneuvers she did to break the event) and check BP daily. Asked her to update us in one week via my chart or sooner if she is having excessive events. ---May add digoxin 025 mg daily if needed in the near future. Patient provided verbal understanding regarding above. VJ Kennedy Telephone Encounter - Margaret Rendon RN - 10/06/2020 2:59 PM CDT It is ok to stay status quo. May add digoxin 025 mg daily if needed in the near future. Telephone Encounter - Margaret Rendon RN - 10/06/2020 12:09 PM CDT Spoke to patient regarding Dr Burrell's recommendations to increase her metoprolol to 50mg po every day. Patient reports she does not want to increase medication to 50mg po daily. She reports since startingmetoprolol she feels her breathing has gotten worse and feels its the side effect of the medication.Also she is fearful her BP will drop. She reports her BP readings are sometimes as low as mid 90's systolic. Since UC visit on 10/03 she has not had any further SVT episodes however she can never predict events. Informed patient that I would update Dr Burrell to see what other recommendations he has for her. VJ Kennedy Telephone Encounter - Galo Burrell MD - 10/06/2020 9:40 AM CDT I had a phone conversation with the urgent care physician last week. Based on her current BP, I think we should try to increase metoprolol from 25 to 50 mg first as a trial. If she cannot tolerate that, I will have other recommendation for her. Telephone Encounter - Margaret Rendon RN - 10/03/2020 3:48 PM CDT Patient left a voicemail on AF nurse line at 2:35pm reporting she continues to have episodes of fastHR daily and sometimes more causing her SOB and hot flashes. OB MD wanted cardiology notified. She reports she is taking the metoprolol 25mg po every day and she continues to have episodes. She indicated she did not think increasing the metoprolol would be a good idea d/t her low BP. Went to call patient back and she was in UC. Will review above with Dr Burrell for recommendations. VJ Kennedy Addendum Note - Joanne Portillo RN - 10/03/2020 3:48 PM CDT Addended by: JOANNE PORTILLO on: 10/22/2020 10:18 AM Modules accepted: Orders documented in this encounter Plan of Treatment Upcoming Encounters Date Type Specialty Care Team Description 04/28/2022 Office Visit Family Practice Anthony Doe, ROVERTO [address] [place] [address] (Wo rk) 05/03/2022 Office Visit Dermatology Neil Kent M D 500 [place] [address] (Wo rk) 05/05/2022 Office Visit Optometry Yeny David, [place] [address] [facility] [place] [address] (Wo rk) 05/11/2022 Virtual Visit Pharm D Diana Desir , [facility] [address] [place] [address] (Wo rk) 05/14/2022 Office Visit Cardiology Livan Sharif MD [address] [facility] [address] [place], [place] [address] (Wo rk) 05/31/2022 Office Visit Family Practice Valery Veronica , PAUcheC [address] [place] [address] (Wo rk) documented as of this encounter Results LEADLESS REGISTERED RADIOLOGIC TECHNOLOGIST APPLICATION AND INTERP 8 TO 14 DAYS (10/30/2020 8:25 AM CDT) Anatomical Region Laterality Modality Other [...] documented as of this encounter Care Teams Venetian Blind Cleaner And Repairer Relationship Specialty Start Date End Date Marija Edgar APRN PCP - General Nurse Practitioner 04/30/20 FEDERAL LAW CLERK [address] [place] [address] Lita Oseguera Personal Advocate & 02/28/20 Liaison (PAL) Chanelle Mccann Assigned OBGYN Provider 05/02/20 05/09/21 [place] [address] [address] [place], [place] [address] Haynes, Kyara, RN Specialty Care Neurology 06/04/20 03/05/21 Coordinator Marija Edgar APRN Assigned PCP 06/08/20 FEDERAL LAW CLERK [address] [place] [address] Mynor Broussard MD Assigned Surgical 06/01/20 11/28/21 [address] Provider [address] [place] [id number] Keisha Dotson, Assigned Neuroscience 06/04/20 MD Provider [address] [place], [place] [address] Stacey Briones, SENIOR ACCOUNT DIRECTOR Lead Analytical Lead Primary Care - CC 08/11/20 12/30/20 Mary Mejia Financial Resource 09/02/20 3/03/31 Worker Galo Burrell MD Assigned Heart and 10/05/20 04/02/22 [address] Vascular Provider [place] [id number] Cristina Wood Financial Resource 10/07/20 10/14/20 Worker Lesley Moody, Community Health Worker 10/23/20 12/30/20 [place] Meredith Bedoya Financial Resource 10/23/20 11/23/20 Worker documented as of this encounter
--- OUTSIDE RECORDS SUMMARY | 2022-04-28 01:17 | XMS_ITS | Encounter Summary ---
:2000 Author Organization [facility] Address [address] [place] [address]. [place] [address] Care Team Providers Name Role Phone Lita Oseguera Unavailable Unavailable Marija Edgar APRN MUCK HAULER Primary Care Provider [phone] Chanelle Mccann APRN CNM Unavailable + Kyara De La Fuente RN Unavailable Marija Edgar APRN MUCK HAULER Unavailable Mynor Broussard MD Unavailable Keisha Dotson MD Unavailable Stacey Brionse BENCH TECHNICIAN Unavailable Mary Mejia Unavailable Unavailable Galo Burrell MD Unavailable Cristina Wood Unavailable Unavailable Reason for Visit Reason Onset Date Comments Refill Request 10/06/2020 Sertraline & Metopro lol succinate refill request Encounter Details Date Type Department Care Team Description 10/06/2020 Refill [facility] Marija Edgar Refill Request Willard ARLENE MUCK HAULER (Sertraline & Metoprolol [address] [facility] [address] succinate refill [place], [place] request ) [phone] (Wo rk) Social History Tobacco Use Types [...] How often do you attend worship or yazidi services? Never 09/22/2021 Do you [...] this encounter Miscellaneous Notes Telephone Encounter - Rebecca Vickers RN - 10/07/2020 1:22 PM CDT Routing refill request to provider for review/approval because: Failed protocol for RN refill Telephone Encounter - Rebecca Vickers RN - 10/07/2020 1:22 PM CDT Metoprolol: Prescription approved per [facility], [facility] or [facility] refill protocol. Rebecca Perez - Registered Nurse [facility] Telephone Encounter - Faiza Lane - 10/06/2020 4:54 PM CDT Medication Question or Refill Who is calling: Kim What medication are you calling about (include dose and sig)?: Sertraline & Metoprolol Controlled Substance Agreement on file: Who prescribed the medication?: Marija Edgar & ER doctor Do you need a refill? Yes: When did you use the medication last? Patient offered an appointment? No Do you have any questions or concerns? No Requested Pharmacy: [facility] Okay to leave a detailed message?: Yes at Cell number on file: Telephone Information: documented in this encounter Plan of Treatment Upcoming Encounters Date Type Specialty Care Team Description 04/28/2022 Office Visit Family Practice Anthony Doe, PAUcheC [address] [place] [address] (Wo rk) 05/03/2022 Office Visit Dermatology Neil Kent M D [address] [place], [place] [address] (Wo rk) 05/05/2022 Office Visit Optometry Yeny David, OD [address] [place] [address] (Wo rk) 05/11/2022 Virtual Visit Pharm D Diana Desir , [facility] [address] [place], [place] [address] (Wo rk) 05/14/2022 Office Visit Cardiology Livan Sharif MD [address], [facility] [address] [place] [address] (Wo rk) 05/31/2022 Office Visit Family Practice Valery Veroniac , PA-C [address] [place] [address] (Wo rk) documented as of this encounter Visit Diagnoses Diagnosis Palpitations - Primary Anxiety Anxiety state, unspecified documented in this encounter Additional Health Concerns Assessment Noted Time PHQ-9 Depression Total Score: 6 09/29/2020 3:25 PM CDT documented as of this encounter Care Teams Morphology Teacher Relationship Specialty Start Date End Date Marija Edgar APRN PCP - General Nurse Practitioner 04/30/20 MUCK HAULER [address] [place] [address] Lita Oseguera Personal Advocate & 02/28/20 Liaison (PAL) Chanelle Mccann Assigned OBGYN Provider 05/02/20 05/09/21 [place] [address] [address] [facility], [facility] [address] [place], [place] [address] Kyara De La Fuente, VJ Specialty Care Neurology 06/04/20 03/05/21 Coordinator Marija Edgar APRN Assigned PCP 06/08/20 MUCK HAULER [address] [place], [place] [phone] Mynor Broussard MD Assigned Surgical 06/01/20 11/28/21 [address] [facility] Provider [address] [place] [address] Keisha Dotson, Assigned Neuroscience 06/04/20 MD Provider [address] [place] [id number] Stacey Briones, BENCH TECHNICIAN Lead Microbiology Lab Assistant Primary Care - CC 08/11/20 12/30/20 Mary Mejia Financial Resource 09/02/2009/09 Worker Galo Burrell MD Assigned Heart and 10/05/20 04/02/22 [address] Vascular Provider [place] [id number] Cristina Wood Financial Resource 10/07/20 10/14/20 Worker documented as of this encounter
--- OUTSIDE RECORDS SUMMARY | 2022-04-28 01:17 | XMS_ITS | Encounter Summary ---
:2000 Author Organization [facility] Address [address] [place] [address]. [place] [address] Care Team Providers Name Role Phone Lita Oseguera Unavailable Unavailable Marija Edgar APRN BUHR DRESSER Primary Care Provider [phone] Chanelle Mccann APRN CNM Unavailable + Kyara De La Fuente RN Unavailable Marija Edgar APRN BUHR DRESSER Unavailable Mynor Broussard MD Unavailable Keisha Dotson MD Unavailable Stacey Briones LEATHER BELT SHAPER Unavailable Galo Burrell MD Unavailable Lesley Moody MA Unavailable Meredith Bedoya Unavailable Unavailable Reason for Visit Reason Comments Shortness of Breath Care 27 weeks, SVT Encounter Details Date Type Department Care Team Description 11/05/2020 Office Visit [facility] Amaris Pascal SOB ([facility] [facility] Tiago Brownlee PA-C breath) (Primary Dx) [address] [place] [address] [phone] Social History Tobacco Use Types Packs/Day Years [...] How often do you attend gnosticism or scientology services? Never 09/22/2021 Do you [...] Sign Reading Time Taken Comments Blood Pressure 126/74 11/05/2020 1:39 PM CDT Pulse 109 11/05/2020 1:39 PM CDT Temperature 36.5 ??C (97.7 ??F) 11/05/2020 1:39 PM CDT Respiratory Rate 16 11/05/2020 1:39 PM CDT Oxygen Saturation 98% 11/05/2020 1:39 PM CDT Inhaled Oxygen Concentration - - Weight 93 kg (205 lb) 11/05/2020 1:39 PM CDT Height - - Body Mass Index 32.11 10/03/2020 2:54 PM CDT documented in this encounter Patient Instructions Patient InstructionsAmaris Pascal PA-C - 11/05/2020 1:25 PM CDT Your lungs are clear on exam today. Your vitals are reassuring. Your hemoglobin is stable compared to a month ago ( no evidence of worsening anemia). Your D dimer is negative ( No concern for blood clot). Your electrolytes are normal, kidney function is normal. Please keep monitoring symptoms. Follow up if any worsening symptoms. documented in this encounter Progress Notes Amaris Pascal PA-C - 11/05/2020 1:25 PM CDT Assessment & Plan SOB (shortness of breath) Shortness of breath worsening today, patient is 27 weeks . Differential diagnosis include Viral syndrome, PE, electrolytes abnormalities, anemia,Covid etc..... On exam she is in no acute distress. Vitals are reassuring. Oxygen saturation is 99% on room air. Her CBC is stable. D-Dimer ordered stat is negative. BMP is normal. Symptomatic Covid PCR swab done in clinic today. Awaiting COVID-19 PCR result. If result return positive will need to self quarantine for 10 days or until 24 hrs after symptoms resolve (whichever comes first). In the interim keep monitoring symptoms. Rest. Discussed red flag symptoms and when to seek emergent care. Follow up if any worsening symptoms. Patient agrees. - CBC with platelets and differential - Symptomatic COVID-19 Virus (Coronavirus) by PCR - D dimer, quantitative - Basic metabolic panel (Ca, Cl, CO2, Creat, Gluc, K, Na, BUN) - Symptomatic COVID-19 Virus (Coronavirus) by PCR - SARS-CoV-2 COVID-19 Virus (Coronavirus) by PCR Return in about 1 week (around 11/12/2020) for Symptoms failing to improve. Amaris Pascal PA-C M [facility] CIERRA Alvarez is a 20 year old female who presents to clinic today for the following health issues: Chief Complaint Patient presents with ??? Shortness of Breath ??? Care 27 weeks, SVT HPI Patient 27 weeks with history of seizures, anxiety, asthma, Gerd, recently diagnosed SVT presenting to urgent care today with a complaint of shortness of breath. She tells me she feels short of breath with activities with this , but today the shortness of breath feels worse. Shortness of breath Onset of symptoms was several days ago Course of illness is worsening. Severity moderate Current and Associated symptoms: shortness of breath, slight cough, nausea Denies: fever, chills, runny nose, stuffy nose, facial pain/pressure, headache, body aches, vomitingand diarrhea Treatment measures tried include None tried. Predisposing factors include None. Review of Systems Constitutional, HEENT, cardiovascular, pulmonary, gi and gu systems are negative, except as otherwise noted. Objective BP 126/74 (BP Location: Right arm, Patient Position: Chair, Cuff Size: Adult Regular) Pulse 109 Temp 97.7 ??F (36.5 ??C) (Oral) Resp 16 Wt 93 kg (205 lb) LMP 04/29/2020 SpO2 98% No BMI 32.11 kg/m?? Physical Exam GENERAL: healthy, alert and no distress EYES: conjunctivae and sclerae normal HENT: ear canals and TM's normal, mouth without ulcers or lesions NECK: no adenopathy RESP: lungs clear to auscultation - no rales, rhonchi or wheezes CV: regular rate and rhythm, normal S1 S2 ABDOMEN: soft, nontender, no masses and bowel sounds normal MS: no gross musculoskeletal defects noted, no edema NEURO: mentation intact and speech normal Results for orders placed or performed in visit on 11/05/20 CBC with platelets and differential Status: Abnormal Result Value Ref Range WBC 10.5 4.0 - 11.0 10e9/L RBC Count 3.95 3.8 - 5.2 10e12/L Hemoglobin 10.5 (L) 11.7 - 15.7 g/dL Hematocrit 32.7 (L) 35.0 - 47.0 % MCV 83 78 - 100 fl MCH 26.6 26.5 - 33.0 pg MCHC 32.1 31.5 - 36.5 g/dL RDW 12.7 10.0 - 15.0 % Platelet Count 262 150 - 450 10e9/L % Neutrophils 75.7 % % Lymphocytes 14.7 % % Monocytes 7.1 % % Eosinophils 2.3 % % Basophils 0.2 % Absolute Neutrophil 7.9 1.6 - 8.3 10e9/L Absolute Lymphocytes 1.5 0.8 - 5.3 10e9/L Absolute Monocytes 0.8 0.0 - 1.3 10e9/L Absolute Eosinophils 0.2 0.0 - 0.7 10e9/L Absolute Basophils 0.0 0.0 - 0.2 10e9/L Diff Method Automated Method D dimer, quantitative Status: None Result Value Ref Range D Dimer 0.5 0.0 - 0.50 ug/ml FEU Basic metabolic panel (Ca, Cl, CO2, Creat, Gluc, K, Na, BUN) Status: None Result Value Ref Range Sodium 135 133 - 144 mmol/L Potassium 4.1 3.4 - 5.3 mmol/L Chloride 105 94 - 109 mmol/L Carbon Dioxide 26 20 - 32 mmol/L Anion Gap 4 3 - 14 mmol/L Glucose 78 70 - 99 mg/dL Urea Nitrogen 12 7 - 30 mg/dL Creatinine 0.59 0.52 - 1.04 mg/dL GFR Estimate >90 >60 mL/min/[1.73_m2] GFR Estimate If Black >90 >60 mL/min/[1.73_m2] Calcium 8.9 8.5 - 10.1 mg/dL Symptomatic COVID-19 Virus (Coronavirus) by PCR Status: None Specimen: Nasopharyngeal Result Value Ref Range COVID-19 Virus PCR to [facility] - Source Nasopharyngeal COVID-19 Virus PCR to [facility] - Result Test received-See reflex to IDDL test SARS CoV2 (COVID-19) Virus RT-PCR SARS-CoV-2 COVID-19 Virus (Coronavirus) by PCR Status: None Specimen: Nasopharyngeal Result Value Ref Range SARS-CoV-2 Virus Specimen Source Nasopharyngeal SARS-CoV-2 PCR Result NEGATIVE SARS-CoV-2 PCR Comment Testing was performed using the Aptima SARS-CoV-2 Assay on the Tel[employer]et Instrument System. Additional information about this Emergency Use Authorization (EUA) assay can be found via the Lab Guide. documented in this encounter Plan of Treatment Upcoming Encounters Date Type Specialty Care Team Description 04/28/2022 Office Visit [facility] Anthony Doe PA-C [address] [place], [place] [phone] (Wo rk) 05/03/2022 Office Visit Dermatology Neil Kent M D [address] [place], [place] [phone] (Wo rk) 05/05/2022 Office Visit Optometry Yeny David, OD [address] [facility] [address] [place], [place] [phone] (Wo rk) 05/11/2022 Virtual Visit Pharm D Diana Desir , [facility] [address] [place] [address] (Wo rk) 05/14/2022 Office Visit Cardiology Livan Sharif MD [address] [facility] [address] [place], [place] [address] (Wo rk) 05/31/2022 Office Visit [facility] Valery Veronica PA-C [address] [place] [address] (Wo rk) documented as of this encounter Procedures Procedure Name Priority Date/Time Associated Comments Diagnosis CBC WITH PLATELETS & Routine 11/05/2020 2:27 PM SOB (shortness of Results for this DIFFERENTIAL CDT breath) procedure are i n the results section. D DIMER QUANTITATIVE STAT 11/05/2020 2:27 PM SOB (shortness of Results for this CDT breath) procedure are i n the results section. BASIC METABOLIC PANEL Routine 11/05/2020 2:27 PM SOB (shortnes s of Results for this CDT breath) procedure are i n the results section. SARS-COV-2 (COVID-19) Routine 11/05/2020 2:16 PM SOB (shortnes s of Results for this VIRUS RT-PCR CDT breath) procedure are i n the results section. COVID-19 VIRUS Routine 11/05/2020 2:16 PM SOB (shortness of Re sults for this (CORONAVIRUS) BY PCR CDT breath) procedu re are in the results section. documented in this encounter Results Basic metabolic panel (Ca, Cl, CO2, Creat, Gluc, K, Na, BUN) (11/05/2020 2:27 PM CDT) athologist Signature Sodium 135 133 - 144 11/05/2020 [facility] mmol/L 11:20 PM [facility] Potassium 4.1 3.4 - 5.3 11/05/2020 [facility] mmol/L 11:20 PM [facility] Chloride 105 94 - 109 11/05/2020 [facility] mmol/L 11:20 PM [facility] Carbon Dioxide 26 20 - 32 11/05/2020 [facility] mmol/L 11:29 PM [facility] Anion Gap 4 3 - 14 11/05/2020 [facility] mmol/L 11:29 PM [facility] Glucose 78 70 - 99 11/05/2020 [facility] mg/dL 11:29 PM [facility] Urea Nitrogen 12 7 - 30 11/05/2020 [facility] mg/dL 11:29 PM [facility] Creatinine 0.59 0.52 - 11/05/2020 [facility] 1.04 mg/dL 11:29 PM [facility] GFR Estimate >90 >60 11/05/2020 [facility] mL/min/{1. 11:29 PM [facility] 73_m2} HOSPITAL Comment: Non GFR Calc Starting 06/27/2018, serum creatinine ba sed estimated GFR (eGFR) will be calculated using the Chronic Kidney Dise ase Epidemiology Collaboration (CKD-EPI) equation. GFR Estimate If >90 >60 mL/min/{1.73_m2} 11/05/2020 11 :29 PM [facility] Comment: GFR Calc Starting 06/27/2018, serum creatinine ba sed estimated GFR (eGFR) will be calculated using the Chronic Kidney Dise ase Epidemiology Collaboration (CKD-EPI) equation. Calcium 8.9 8.5 - 10.1 mg/dL 11/05/2020 11:29 PM CDT [facility] Specimen Anatomical Collection Method Collection Time Receive d Time (Source) Location / / Volume Laterality Blood 11/05/2020 2:27 PM 1 2:28 CDT PM CDT Amaris ALCALA-Romana LAB - BLOOD ORDERABLES Performing Organization Address City/[facility] Phon e Jose A [facility] [address] [place], [place] [address] [place] [address] [address] [place], [place] [address] [address] [phone] D dimer, quantitative (11/05/2020 2:27 PM CDT) athologist Signature D Dimer 0.5 0.0 - 0.50 11/05/2020 [facility] ug/ml FEU 4:03 PM CDT HOSPITAL Comment: This D-dimer assay is intended for use i n conjunction with a clinical pretest probability assessment model to exclude pulmonary embolism (PE) and deep venous thrombosis (DVT) in outpatients s uspected of PE or DVT. The cut-off value is 0.5 ug/mL FEU. Specimen Anatomical Collection Method Collection Time Receive d Time (Source) Location / / Volume Laterality Blood 11/05/2020 2:27 PM 1 2:28 CDT PM CDT Amaris ALCALA-C LAB - BLOOD ORDERABLES Performing Organization Address [facility] Phon e Jose A [facility] [address] [place], [place] [address] [facility] [address] [place], [place] [address] [phone] (ABNORMAL) CBC with platelets and differential (11/05/2020 2:27 PM CDT) [facility] gist Method Time Signature WBC 10.5 4.0 - 11/05/2020 [facility] 11.0 2:44 PM CDT CLINICS 10e9/L [place] RBC Count 3.95 3.8 - 5.2 11/05/2020 [facility] 10e12/L 2:44 PM CDT [facility] [place] Hemoglobin 10.5 (L) 11.7 - 11/05/2020 [facility] 15.7 g/dL 2:44 PM CDT [facility] [place] Hematocrit 32.7 (L) 35.0 - 11/05/2020 [facility] 47.0 % 2:44 PM CDT [facility] [place] MCV 83 78 - 100 11/05/2020 [facility] fl 2:44 PM CDT [facility] [place] MCH 26.6 26.5 - 11/05/2020 [facility] 33.0 pg 2:44 PM CDT [facility] [place] MCHC 32.1 31.5 - 11/05/2020 [facility] 36.5 g/dL 2:44 PM CDT [facility] [place] RDW 12.7 10.0 - 11/05/2020 [facility] 15.0 % 2:44 PM CDT [facility] [place] Platelet Count 262 150 - 450 11/05/2020 [facility] 10e9/L 2:44 PM CDT [facility] [place] % Neutrophils 75.7 % 11/05/2020 [facility] 2:44 PM CDT [facility] [place] % Lymphocytes 14.7 % 11/05/2020 [facility] 2:44 PM CDT [facility] [place] % Monocytes 7.1 % 11/05/2020 [facility] 2:44 PM CDT [facility] [place] % Eosinophils 2.3 % 11/05/2020 [facility] 2:44 PM CDT [facility] [place] % Basophils 0.2 % 11/05/2020 [facility] 2:44 PM CDT [facility] [place] Absolute 7.9 1.6 - 8.3 11/05/2020 [facility] Neutrophil 10e9/L 2:44 PM CDT [facility] [place] Absolute 1.5 0.8 - 5.3 11/05/2020 [facility] Lymphocytes 10e9/L 2:44 PM CDT [facility] [place] Absolute 0.8 0.0 - 1.3 11/05/2020 [facility] Monocytes 10e9/L 2:44 PM CDT [facility] Absolute 0.2 0.0 - 0.7 11/05/2020 [place] Eosinophils 10e9/L 2:44 PM CDT [facility] Absolute 0.0 0.0 - 0.2 11/05/2020 [place] Basophils 10e9/L 2:44 PM CDT [facility] Diff Method Automated 11/05/2020 [place] Method 2:44 PM CDT [facility] Specimen Anatomical Collection Method Collection Time Receive d Time (Source) Location / / Volume Laterality Blood 11/05/2020 2:27 PM 2:28 CDT PM CDT Amaris Pascal PA-C LAB - BLOOD ORDERABLES Performing Organization Address City/State/ZIP Code Phon e Number [facility] [address] [place] [address] SARS-CoV-2 COVID-19 Virus (Coronavirus) by PCR (11/05/2020 2:16 PM CDT) [facility] Method Time Signature SARS-CoV-2 Nasopharyngeal 11/06/2020 INFECTIOUS Virus 1:09 PM CDT DISEASES Specimen DIAGNOSTIC Source LABORATORY, [facility] SARS-CoV-2 NEGATIVE 11/06/2020 INFECTIOUS PCR Result 1:09 PM CDT DISEASES DIAGNOSTIC LABORATORY, [facility] Comment: SARS-CoV2 (COVID-19) RNA not de tected, presumed negative. SARS-CoV-2 PCR Testing was performed using the Aptima SARS-CoV-2 Assay on the Telkonet Instrument System. 11/06/2020 1:09 PM INFECTIO US DISEASES Comment Additional information about this Emergency Use Authorization (EUA) assay can be found via CDT DIAGNOSTIC the Lab Guide. LABORATORY, [facility] Comment: This test should be ordered for [...] COVID-19. This test was validated by the [facility] Infectious Diseases Diagnostic Laboratory. This laboratory i s certified under the Clinical Laboratory Improvement Amendments of 198 8 (CLIA-88) as qualified to perform high complexity laboratory testing. Specimen (Source) Anatomical Collection Method Collection Time Re ceived Time Location / / Volume Laterality Specimen from 11/05/2020 2:16 11/05/2020 nasopharyngeal PM CDT 3:06 PM CDT structure (specimen) Amaris Pascal PA-C LAB - MICRO GENERAL ORDERABL ES Performing Organization Address City/[facility] Phon e Number INFECTIOUS DISEASES DIAGNOSTIC [address] [facility] [address] [address] LABORATORY, [facility] Symptomatic COVID-19 Virus (Coronavirus) by PCR (11/05/2020 2:16 PM CDT) [facility] Method Time Signature COVID-19 Nasopharyngeal 11/05/2020 [place] Virus PCR to 3:09 PM CDT CLINICS [facility] Source Comment: CORRECTED ON 11/05 AT 1509: PRE VIOUSLY REPORTED Midstream Urine COVID-19 Virus PCR Test received-See 11/05/2020 5: 19 PM INFECTIOUS DISEASES to [facility] - reflex to IDDL test CDT DIAGNOS TIC Result SARS CoV2 (COVID-19) LABORATOR Y, [facility] Virus RT-PCR Specimen (Source) Anatomical Collection Method Collection Time Re ceived Time Location / / Volume Laterality Specimen from 11/05/2020 2:16 11/05/2020 nasopharyngeal PM CDT 3:06 PM CDT structure (specimen) Amaris Pascal PA-C LAB - MICRO GENERAL ORDERABL ES Performing Organization Address [facility] Phon e Number INFECTIOUS DISEASES DIAGNOSTIC [address] [facility] [address] [address] LABORATORY, [facility] [address] [place] [address] documented in this encounter Visit Diagnoses Diagnosis SOB (shortness of breath) - Primary Shortness of breath documented in this encounter Additional Health Concerns Assessment Noted Time PHQ-9 Depression Total Score: 6 09/29/2020 3:25 PM CDT documented as of this encounter Care Teams Water Operator Relationship Specialty Start Date End Date Marija Edgar APRN PCP - General Nurse Practitioner 04/30/20 [address] [address] [place], [place] [phone] Lita Oseguera Personal Advocate & 02/28/20 Liaison (PAL) Chanelle Mccann Assigned OBGYN Provider 05/02/20 05/09/21 [place] [address] [address] [facility] [address] [place], [place] [address] Kyara De La Fuente RN Specialty Care Neurology 06/04/20 03/05/21 Coordinator Marija Edgar APRN Assigned PCP 06/08/20 [address] [address] [place], [place] [phone] Mynor Broussard MD Assigned Surgical 06/01/20 11/28/21 [address] DANNI Provider [address] [address] Melody Dotson Neuroscience 06/04/20 MD Keisha Provider [address] [place], [place] [address] Stacey Briones, LEATHER BELT SHAPER Lead Exchange Trouble Shooter Primary Care - CC 08/11/20 12/30/20 Galo Burrell MD Assigned Heart and 10/05/20 04/02/22 [address] Vascular Provider [address] [place] [address] Lesley Moody, Community Health Worker 10/23/20 12/30/20 MA Meredith Bedoya Financial Resource Worker 10/23/20 11/23/20 documented as of this encounter
--- OUTSIDE RECORDS SUMMARY | 2022-04-28 01:17 | XMS_ITS | Encounter Summary ---
:[address] Address [address] [place] [address]. [place] [address] Care Team Providers Name Role Phone Lita Oseguera Unavailable Unavailable Marija Edgar APRN HEAD TURNING 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 Primary Care Provider [phone] Chanelle Mccann APRN CNM Unavailable + Kyara De La Fuente RN Unavailable Marija Edgar APRN HEAD TURNING 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 Unavailable Mynor Broussard MD Unavailable Keisha Dotson MD Unavailable Stacey Briones AMMUNITION AND EXPLOSIVES HANDLER Unavailable Galo Burrell MD Unavailable Cristina Wood Unavailable Unavailable Encounter Details Date Type Department Care Team Description 10/07/2020 [facility] Marija Edgar APRN [place] [id number] [phone] [place] [address] (Wo rk) Social History Tobacco [...] How often do you attend mormonism or adventism services? Never 09/22/2021 Do you belong to [...] Notes Telephone Encounter - Lita Oseguera - 10/07/2020 9:17 AM CDT Return call to Pt regarding referral. As directed by Marija Edgar, msg left informing Pt that the referral would be good to anywhere. Pt informed to call PAL back with any additional questions or concerns. [facility] Health Guide, SB 4 PAL documented in this encounter Plan of Treatment Upcoming Encounters Date Type Specialty Care Team Description 04/28/2022 Office Visit Family Practice Anthony Doe, PAUcheC [address] [place] [address] (Wo rk) 05/03/2022 Office Visit Dermatology Neil Kent M D [address] [place] [phone] (Wo rk) 05/05/2022 Office Visit Optometry Yeny David, [place] [address] [facility] [address] [place] [phone] (Wo rk) 05/11/2022 Virtual Visit Pharm D Diana Desir , [facility] [address] [place], [place] [address] (Wo rk) 05/14/2022 Office Visit Cardiology Livan Sharif MD [address] [facility] [address] [place], [place] [address] (Wo rk) 05/31/2022 Office Visit [facility] Valery Veronica PA-C [address] [place], [place] [address] (Wo rk) documented as of this encounter Visit Diagnoses Not on filedocumented in this encounter Additional Health Concerns Assessment Noted Time PHQ-9 Depression Total Score: 6 09/29/2020 3:25 PM CDT documented as of this encounter Care Teams Starch Cooker Relationship Specialty Start Date End Date Marija Edgar APRN PCP - General Nurse Practitioner 04/30/20 HEAD TURNING 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 [address] [place] [address] Lita Oseguera Personal Advocate & 02/28/20 Liaison (PAL) Chanelle Mccann Assigned OBGYN Provider 05/02/20 05/09/21 ARLENE Mooney CNM [address] [place], [facility] 200 [place] [address] Kyara De La Fuente, RN Specialty Care Neurology 06/04/20 03/05/21 Coordinator Marija Edgar APRN Assigned PCP 06/08/20 HEAD TURNING 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 [address] [place] [address] Mynor Broussard MD Assigned Surgical 06/01/20 11/28/21 [address] Provider 500 [place], [place] [address] Melody Dotson Neuroscience 06/04/20 MD Keisha Provider 909 [place], [place] [address] Stacey Briones, AMMUNITION AND EXPLOSIVES HANDLER Lead Decision Support Manager Primary Care - CC 08/11/20 12/30/20 Galo Burrell MD Assigned Heart and 10/05/20 04/02/22 [address] Vascular Provider [address] [place], [place] [phone] Cristina Wood Financial Resource Worker 10/07/20 10/14/20 documented as of this encounter
--- OUTSIDE RECORDS SUMMARY | 2022-04-28 01:17 | XMS_ITS | Encounter Summary ---
:2000 Author Organization [employer] Address [address] [place] [address] Care Team Providers Name Role Phone Lita Oseguera Unavailable Unavailable Marija Edgar APRN CORPORATE PILOT Primary Care Provider [phone] Chanelle Mccann APRN CNM Unavailable + Kyara De La Fuente RN Unavailable Marija Edgar APRN CORPORATE PILOT Unavailable Mynor Broussard MD Unavailable Keisha Dotson MD Unavailable Stacey Briones HOIST WORKER Unavailable Galo Burrell MD Unavailable Lesley Moody MA Unavailable Meredith Bedoya Unavailable Unavailable Encounter Details Date Type Department Care Team Description 11/19/2020 Travel Social History Tobacco Use Types Packs/Day [...] How often do you attend scientology or holiness services? Never 09/22/2021 Do you [...] Office Visit Family Practice Anthony Doe PA-C [address] [place], [place] [phone] (Wo rk) 05/03/2022 Office Visit Dermatology Neil Kent M D [address] [place], [place] [phone] (Wo rk) 05/05/2022 Office Visit Optometry Yeny David, [place] [address] [facility] [place] [phone] (Wo rk) 05/11/2022 Virtual Visit Pharm D Diana Desir , [facility] [address] [place] [address] (Wo rk) 05/14/2022 Office Visit Cardiology Livan Sharif MD [address], [facility] [address] [place], [place] [address] (Wo rk) 05/31/2022 Office Visit Family Practice Valery Veronica , PA-C 909 [place] [address] (Wo rk) documented as of this encounter Visit Diagnoses Not on filedocumented in this encounter Additional Health Concerns Assessment Noted Time PHQ-9 Depression Total Score: 6 09/29/2020 3:25 PM CDT documented as of this encounter Care Teams [employer] Storage Architect Relationship Specialty Start Date End Date Marija Edgar APRN PCP - General Nurse Practitioner 04/30/20 CORPORATE PILOT [address] [place], [place] [phone] Lita Oseguera Personal Advocate & 02/28/20 Liaison (PAL) Chanelle Mccann Assigned OBGYN Provider 05/02/20 05/09/21 [place] [address] [facility] 200 [place], [place] [phone] Kyara De La Fuente, VJ Specialty Care Neurology 06/04/20 03/05/21 Coordinator Marija Edgar APRN Assigned PCP 06/08/20 CORPORATE PILOT [address] [place], [place] [phone] Mynor Broussard MD Assigned Surgical 06/01/20 11/28/21 [address] DANNI Provider 500 [place] [id number] Mauri, Assigned Neuroscience 06/04/20 MD Keisha Provider 909 [place] [address] Stacey Briones, HOIST WORKER Lead Sample Driller Primary Care - CC 08/11/20 12/30/20 Galo Burrell MD Assigned Heart and 10/05/20 04/02/22 [address] Vascular Provider [address] [place] [id number] Lesley Moody, Community Health Worker 10/23/20 12/30/20 [place] Meredith Bedoya Financial Resource Worker 10/23/20 11/23/20 documented as of this encounter
--- OUTSIDE RECORDS SUMMARY | 2022-04-28 01:17 | XMS_ITS | Encounter Summary ---
:2000 Author Organization [employer] Address [address] [place] [address]. [place] [address] Care Team Providers Name Role Phone Lita Oseguera Unavailable Unavailable Marija Edgar APRN ELECTRICAL TECHNICIAN INSTRUCTOR Primary Care Provider Chanelle Mccann APRN CNM Unavailable + Kyara De La Fuente RN Unavailable Marija Edgar APRN ELECTRICAL TECHNICIAN INSTRUCTOR Unavailable Mynor Broussard MD Unavailable Keisha Dotson MD Unavailable Stacey Briones VOLUNTEER SERVICES DIRECTOR Unavailable Galo Burrell MD Unavailable Lesley Moody MA Unavailable Meredith Bedoya Unavailable Unavailable Reason for Visit Reason Comments Rule Out Labor Encounter Details Date Type Department Care Team Description 11/15/2020 Hospital Encounter [facility] Birthplace MD Pj infection (Primary [address] OBGYN Dx) [place], [place] [facility] [id number] [phone] [address] [place] [address] Social [...] How often do you attend advent or congregational services? Never 09/22/2021 Do you [...] been in contact with No / Unsure 11/15/2020 4:29 PM CDT someone who was confirmed or suspected to have Coronavirus / COVID-19? documented as of this encounter Last Filed Vital Signs Vital Sign Reading Time Taken Comments Blood Pressure 115/56 11/15/2020 5:11 PM CDT Pulse - - Temperature 36.8 ??C (98.2 ??F) 11/15/2020 4:41 PM CDT Respiratory Rate 18 11/15/2020 4:41 PM CDT Oxygen Saturation - - Inhaled Oxygen Concentration - - Weight - - Height - - Body Mass Index - - documented in this encounter Discharge Instructions Discharge InstructionsRosamaria Breen RN - 11/15/2020 5:58 PM CDT Discharge Instruction for Undelivered Patients You were seen for: Labor Assessment We Consulted: Dr. Marcial You had (Test or Medicine): UA, Covid swab, vitals, cervical exam, heart tones Diet: Drink 8 to 12 glasses of liquids (milk, juice, water) every day. You may eat meals and snacks. Activity: Rest the pelvic area. No sex. Do not stimulate breasts or nipples. Call your doctor or nurse hotel server if your baby is moving less than [...] minutes apart for one hour or more. *If less than 34 weeks: Contractions (tightenings) more than 6 times in one hour. Increase or change in vaginal discharge (note the color and amount) Follow-up: As scheduled in the clinic Macrobid 100mg twice a day, at [facility]. Drink lots of water! Call your clinic if you feel any increase or change in your symptoms. documented in this encounter Medications at Time of Discharge Medication Sig Dispensed Refills Start Date End Date Vit-Fe Take 1 tablet by 90 tablet 3 06/04/2020 Fumarate-FA ( mouth daily MULTIVITAMIN W/IRON) 27-0.8 MG tablet folic acid (FOLVITE) 1 MG Take 1 tablet (1 180 tablet 3 05/1201/11/2021 tabletIndications: mg) by mouth 2 Convulsions, unspecified times daily convulsion type (H) levETIRAcetam (KEPPRA) 500 Take 1 tab twice a 90 tablet 3 1 08/04/2019 02/24/2021 MG tabletIndications: day for 1 week and Convulsions, unspecified then 1 1/2 tabs convulsion type (H) twice a day metoprolol succinate ER Take 1 tablet (25 30 tablet 1 10/0711/21/2020 (TOPROL-XL) 25 MG 24 hr mg) by mouth daily tabletIndications: Anxiety, Palpitations nitroFURantoin Take 1 capsule 14 capsule 0 11/15/20202020 macrocrystal-monohydrate (100 mg) by mouth (MACROBID) 100 MG 2 times daily capsuleIndications: Urinary tract infection omeprazole (PRILOSEC) 40 Take 1 capsule (40 90 capsule 3 03/03/[address] capsuleIndications: mg) by mouth daily Epigastric pain sertraline (ZOLOFT) 100 MG TAKE ONE AND 135 tablet 0 021 02/05/2021 tabletIndications: Anxiety ONE-HALF TABLETS BY MOUTH EVERY DAY documented as of this encounter Miscellaneous Notes Plan of Care - Rosamaria Breen RN - 11/15/2020 6:07 PM CDT Patient's After Visit Summary was reviewed with patient and/or significant other. Patient verbalized understanding of After Visit Summary, recommended follow up and was given an opportunity to ask questions. Discharge medications sent home with patient/family: To pick [facility] [place]. Discharged with significant other. Provider Notification - Rosamaria Breen RN - 11/15/2020 5:59 PM CDT 11/15/20 5009 Provider Notification Provider Name/Title Aggie Method of Notification Phone Informed MD of results of UA. New order for Macrobid and for pt to hydrate. No sex x1 week. Informedcovid negative. Ok to discharge to home. Provider Notification - Rosamaria Breen RN - 11/15/2020 5:14 PM CDT 11/15/20 171 Provider Notification Provider Name/Title Aggie Method of Notification Phone Provider called, discussed how pt appears. New orders to reassure pt and to send pt home as long as the UA comes back negative, otherwise to call MD back. Provider Notification - Rosamaria Breen RN - 11/15/2020 5:12 PM CDT 11/15/201710 Provider Notification Provider Name/Title Aggie Method of Notification Electronic Page Notification Reason Status Update NST reactive. Covid swab sent. Waiting for urine for UA. No FFN d/t sex within last 24 hours. SVE 0/100/-4. No cx. States intermittent FLORES with spots at times, BP WNL though 1 beat of clonus. States rectal/pelvic pressure. Plan of Care - Rosamaria Breen RN - 11/15/2020 4:30 PM CDT Data: Patient presented to [facility]: 11/15/2020 4:30 PM. Reason for maternal/ assessment is to rule out labor. Patient reports pelvic pain, rectal pressure, intermittent headache with somevision changes that come and go (such as seeing black spots intermittently). She does have a beat of clonus present. She states her anxiety has been stable, though her depression has increased in the last couple of weeks. No thoughts of self harm. Patient is a . record reviewed. Pregnancyhas been complicated by seizure disorder (controlled, on Keppra), anxiety (on Zoloft). Gestational Age 28w4d. VSS. movement active. Patient denies uterine contractions, leaking of vaginal fluid/rupture of membranes, vaginal bleeding, nausea, vomiting, epigastric or URQ pain, significant edema. Support person, Shonna CHRISTIANSON, is present. Action: Verbal consent for EFM. Triage assessment completed. Bill of rights reviewed. Response: Patient verbalized agreement with plan. Will contact DR Saurabh Marcial with update and further orders. documented in this encounter Plan of Treatment Upcoming Encounters Date Type Specialty Care Team Description 04/28/2022 Office Visit Family [facility] Anthony Doe PA-C [address] [place] [address] (Wo rk) 05/03/2022 Office Visit Dermatology Neil Kent M D 500 [place] [address] (Wo rk) 05/05/2022 Office Visit Optometry Yeny David, [place] [address] [facility] [address] [place], [place] [phone] (Wo rk) 05/11/2022 Virtual Visit Pharm Diana Eckert , [facility] [address] [place], [place] [address] (Wo rk) 05/14/2022 Office Visit Cardiology Livan Sharif MD [address] [facility] [address] [place], [place] [address] (Wo rk) 05/31/2022 Office Visit Family [facility] Valery Veronica PA-C 909 [place], [place] [address] (Wo rk) documented as of this encounter Procedures Procedure Name Priority Date/Time Associated Comments Diagnosis UA MACROSCOPIC WITH Routine 11/15/2020 5:20 PM Re sults for this REFLEX TO MICRO AND CDT procedur e are in CULTURE the results section. SARS-COV-2 (COVID-19) Routine 11/15/2020 4:48 PM Results for this VIRUS RT-PCR CDT procedure are i n the results section. documented in this encounter Results (ABNORMAL) UA reflex to Microscopic and Culture (11/15/2020 5:20 PM CDT) [facility] Method Time Signature Color Urine Yellow 11/15/2020 [facility] 5:45 PM [facility] Appearance Urine Slightly 11/15/2020 [facility] Cloudy 5:45 PM [facility] Glucose Urine Negative NEG^Negat 11/15/2020 [facility] shyam mg/dL 5:45 PM [facility] Bilirubin Urine Negative NEG^Negat 11/15/2020 [facility] shyam 5:45 PM [facility] Ketones Urine Trace (A) NEG^Negat 11/15/2020 [facility] shyam mg/dL 5:45 PM [facility] Specific Big Pool 1.027 1.003 - 11/15/2020 [facility] Urine 1.035 5:45 PM [facility] Blood Urine Negative NEG^Negat 11/15/2020 [facility] shyam 5:45 PM [facility] pH Urine 6.0 5.0 - 7.0 11/15/2020 [facility] pH 5:45 PM [facility] Protein Albumin 30 (A) NEG^Negat 11/15/2020 [facility] Urine shyam mg/dL 5:45 PM [facility] Urobilinogen Normal 0.0 - 2.0 11/15/2020 [facility] mg/dL mg/dL 5:45 PM [facility] Nitrite Urine Negative NEG^Negat 11/15/2020 [facility] shyam 5:45 PM [facility] Leukocyte Trace (A) NEG^Negat 11/15/2020 [facility] Esterase Urine shyam 5:45 PM [facility] Source Midstream 11/15/2020 [facility] Urine 5:32 PM [facility] RBC Urine 2 0 - 2 11/15/2020 [facility] /HPF 5:45 PM [facility] WBC Urine 7 (H) 0 - 5 11/15/2020 [facility] /HPF 5:45 PM [facility] Bacteria Urine Moderate (A) NEG^Negat 11/15/2020 [facility] shyam /HPF 5:45 PM [facility] Squamous 3 (H) 0 - 1 11/15/2020 [facility] Epithelial /HPF /HPF 5:45 PM [facility] Mucous Urine Present (A) NEG^Negat 11/15/2020 [facility] shyam /LPF 5:45 PM [facility] Specimen (Source) Anatomical Collection Method Collection Time Re ceived Time Location / / Volume Laterality Examination of URINE SPECIMEN 11/15/2020 5:20 11/16/19 21 5:31 midstream urine OBTAINED BY CLEAN PM CDT PM CDT specimen CATCH PROCEDURE / (procedure) Unknown Saurabh Marcial MD LAB - URINE ORDERABLES Performing Organization Address City/State/ZIP Code Phon e Number [place] [address] [place], [place] [address] [place] [address] [place] [address] [address] [place], [place] [address] [place] [address] Symptomatic SARS-CoV-2 COVID-19 Virus (Coronavirus) by PCR (11/15/2020 4:48 PM CDT) [facility] Method Time Signature SARS-CoV-2 Nasopharyngeal 11/15/2020 [facility] Virus 5:00 PM [facility] Source SARS-CoV-2 NEGATIVE 11/15/2020 [facility] PCR Result 5:34 PM [facility] Comment: SARS-CoV2 (COVID-19) RNA not de tected, presumed negative. SARS-CoV-2 PCR Comment (Note) 11/15/2020 5:34 P M CDT [facility] Comment: Testing was performed using the candy SA RS-CoV-2 & Influenza A/B Assay on the candy Christ[employer] System. This test should be ordered for the dete ction of SARS-COV-2 in individuals who meet SARS-CoV-2 clinical and/or epidemi ological criteria. Test performance is unknown in asymptomatic patients. This test is for in vitro diagnostic use under the FDA EUA for laboratories certified under CLIA to perform moderate and/or high complexity testing. This test has not been FDA cleared or approve d. A negative test does not rule out the pr esence of PCR inhibitors in the specimen or target RNA in concentration below the limit of detection for the assay. The possibility of a false negati ve should be considered if the patient's recent exposure or clinical pr esentation suggests COVID-19. [facility] are certi fied under the Clinical Laboratory Improvement Amendments of 1988 (CLIA-88) as qualified to perform moderate and/or high complexity laboratory testin g. Specimen (Source) Anatomical Collection Method Collection Time Re ceived Time Location / / Volume Laterality Specimen from 11/15/2020 4:48 11/15/2020 nasopharyngeal PM CDT 4:59 PM CDT structure (specimen) Saurabh Marcial MD LAB - MICRO GENERAL ORDERABL ES Performing Organization Address City/State/ZIP Code Phon e Number M [facility] [address] [place], [place] [address] [phone] [phone] documented in this encounter Visit Diagnoses Diagnosis Urinary tract infection - Primary Urinary tract infection, site not specif ied documented in this encounter Additional Health Concerns Assessment Noted Time PHQ-9 Depression Total Score: 6 09/29/2020 3:25 PM CDT documented as of this encounter Care Teams Wood Casket Maker Relationship Specialty Start Date End Date Marija Edgar APRN PCP - General Nurse Practitioner 04/30/20 ELECTRICAL TECHNICIAN INSTRUCTOR [address] [place] [address] Lita Oseguera Personal Advocate & 02/28/20 Liaison (PAL) Chanelle Mccann Assigned OBGYN Provider 05/02/20 05/09/21 ARLENE Mooney [facility] [address] [place] [address] Kyara De La Fuente, VJ Specialty Care Neurology 06/04/20 03/05/21 Coordinator Marija Edgar APRN Assigned PCP 06/08/20 ELECTRICAL TECHNICIAN INSTRUCTOR [address] [place] [address] Mynor Broussard MD Assigned Surgical 06/01/20 11/28/21 [address] DANNI Provider [address] [place] [id number] Mauri, Assigned Neuroscience 06/04/20 MD Keisha Provider [address] [place], [place] [address] Stacey Briones, VOLUNTEER SERVICES DIRECTOR Lead Curator [employer] Primary Care - CC 08/11/20 12/30/20 Galo Burrell MD Assigned Heart and 10/05/20 04/02/22 [address] Vascular Provider [address] [place] [address] Lesley Moody, Community Health Worker 10/23/20 12/30/20 JOSE ALBERTO Meredith Bedoya Financial Resource Worker 10/23/20 11/23/20 documented as of this encounter
--- OUTSIDE RECORDS SUMMARY | 2022-04-28 01:17 | XMS_ITS | Encounter Summary ---
:2000 Author Organization [employer] Address [address] [place] [address] Care Team Providers Name Role Phone Lita Oseguera Unavailable Unavailable Marija Edgar APRN GREEN BUILDING DESIGN SPECIALIST Primary Care Provider [phone] Chanelle Mccann APRN CNM Unavailable + Kyara De La Fuente RN Unavailable Marija Edgar APRN GREEN BUILDING DESIGN SPECIALIST Unavailable Mynor Broussard MD Unavailable Keisha Dotson MD Unavailable Stacey Briones ADMINISTRATIVE PERSONAL ASSISTANT Unavailable Galo Burrell MD Unavailable Lesley Moody MA Unavailable Meredith Bedoya Unavailable Unavailable Reason for Visit Reason Onset Date Comments Clinic Care Coordination - Initial 11/13/2020 ZP Encounter Details Date Type Department Care Team Description 11/13/2020 Telephone [facility] Heart Alexus Avalos C linic Care Coordination Clinic Dee RN - Initial (ZP) [address] [facility] [address] [place] [address] Social History Tobacco Use [...] How often do you attend sikhism or alevism services? Never 09/22/2021 Do you [...] Telephone Encounter - Alexus Avalos RN - 11/14/2020 5:33 PM CDT Spoke to pt who states that Dr Marcial of [facility] specialists is fine with increasing pt Metoprolol ifneeded after the ZP results come back. But Dr Marcial would like to speak with Dr Burrell so that they are on the same page with pt medications. Will await ZP monitor. Joe Telephone Encounter - Alexus Avalos RN - 11/13/2020 4:28 PM CDT Pt called and LM that her ZioPatch fell off at 10 days and wondering if she needs to wear another. Pt continues to have more SVT and was told by her leaf stamper that the dose of Metoprolol could be increased if needed. Stated that Dr Burrell could discuss with pt TRANSFER AND PUMPHOUSE OPERATOR MD. LM that this chart writer did not get the TRANSFER AND PUMPHOUSE OPERATOR name and asked that pt call back with this information. Joe documented in this encounter Plan of Treatment Upcoming Encounters Date Type Specialty Care Team Description 04/28/2022 Office Visit Family [facility] Anthony Doe PA-C [address] [place], [place] [phone] (Wo rk) 05/03/2022 Office Visit Dermatology Neil Kent M D [address] [place], [place] [phone] (Wo rk) 05/05/2022 Office Visit Optometry Yeny David, OD [address] [facility] [address] [place] [phone] (Wo rk) 05/11/2022 Virtual Visit Pharm D Diana Desir , [facility] [address] [place], [place] [address] (Wo rk) 05/14/2022 Office Visit Cardiology Livan Sharif MD [address] , [facility] [address] [place], [place] [address] (Wo rk) 05/31/2022 Office Visit Family Practice Valery Veronica PA-C 909 [place] [address] (Wo rk) documented as of this encounter Visit Diagnoses Not on filedocumented in this encounter Additional Health Concerns Assessment Noted Time PHQ-9 Depression Total Score: 6 09/29/2020 3:25 PM CDT documented as of this encounter Care Teams Supervisor Type Disk Quality Control Relationship Specialty Start Date End Date Marija Edgar APRN PCP - General Nurse Practitioner 04/30/20 GREEN BUILDING DESIGN SPECIALIST [address] [place] [address] Lita Oseguera Personal Advocate & 02/28/20 Liaison (PAL) Chanelle Mccann Assigned OBGYN Provider 05/02/20 05/09/21 [place] [address] [facility] [address] [place], [place] [address] Kyara De La Fuente, VJ Specialty Care Neurology 06/04/20 03/05/21 Coordinator Marija Edgar APRN Assigned PCP 06/08/20 GREEN BUILDING DESIGN SPECIALIST [address] [place], [place] [phone] Mynor Broussard MD Assigned Surgical 06/01/20 11/28/21 [address] DANNI Provider [address] [place], [place] [address] Mauri, Assigned Neuroscience 06/04/20 MD Keisha Provider 9 [place], [place] [address] Stacey Briones, ADMINISTRATIVE PERSONAL ASSISTANT Lead Manager Line Primary Care - CC 08/11/20 12/30/20 Galo Burrell MD Assigned Heart and 10/05/20 04/02/[address] Vascular Provider [address] [place] [address] Lesley Moody, Community Health Worker 10/23/20 12/30/20 JOSE ALBERTO Meredith Bedoya Financial Resource Worker 10/23/20 11/23/20 documented as of this encounter
--- OUTSIDE RECORDS SUMMARY | 2022-04-28 01:17 | XMS_ITS | Encounter Summary ---
:2000 Author Organization [facility] Address [address] [place] [address] Care Team Providers Name Role Phone Lita Oseguera Unavailable Unavailable Marija Edgar APRN LOCK AND DAM OPERATOR Primary Care Provider [phone] Chanelle Mccann APRN CNM Unavailable + Kyara De La Fuente RN Unavailable Marija Edgar APRN LOCK AND DAM OPERATOR Unavailable Mynor Broussard MD Unavailable Keisha Dotson MD Unavailable Stacey Briones PEDIGREE TRACER Unavailable Galo Burrell MD Unavailable Lesley Moody MA Unavailable Meredith Bedoya Unavailable Unavailable Reason for Referral CV Testing (Routine) - Closed Specialty Diagnoses / Procedures Referred By Contact Refer red To Contact Cardiology Diagnoses SVT (supraventricular tachycardia) (H) Hooks Ump Hrt Cardio Ctr Rh Cv Cardiac Svc Rscc Procedures Leadless automobile rental clerk 8 to 14 Days ZZHC EXT ECG > 48HR TO 21 DAY RCRD W/CONECT INTL RCRD ZZC EXT ECG > 48HR TO 21 DAY REVIEW AND INTERPRETATN NE EXT ECG > 48HR TO 21 DAY RCRD W/CONECT INTL RCRD [address] NE EXT ECG > 48HR TO 21 DAY REVIEW AND INTERPRETATN HC EXT ECG > 48HR TO 21 DAY RCRD W/CONECT INTL RCRD [address] [place] [address] [place] [address] Phone: Fax: Referral ID Status Reason Start Date Expiration Date Visits Requ ested Visits Authorized [id number] Closed 10/22/2020 10/22/2021 1 1 Reason for Visit CV Testing (Routine) - Closed Specialty Diagnoses / Procedures Referred By Contact Refer red To Contact Cardiology Diagnoses SVT (supraventricular tachycardia) (H) Hooks Ump Hrt Cardio Ctr Rh Cv Cardiac Svc Rscc Procedures Leadless automobile rental clerk 8 to 14 Days ZZHC EXT ECG > 48HR TO 21 DAY RCRD W/CONECT INTL RCRD ZZC EXT ECG > 48HR TO 21 DAY REVIEW AND INTERPRETATN NE EXT ECG > 48HR TO 21 DAY RCRD W/CONECT INTL RCRD [address] NE EXT ECG > 48HR TO 21 DAY REVIEW AND INTERPRETATN HC EXT ECG > 48HR TO 21 DAY RCRD W/CONECT INTL RCRD [address] [place] [address] [place] [address] Phone: Fax: Referral ID Status Reason Start Date Expiration Date Visits Requ ested Visits Authorized [id number] Closed 10/22/2020 10/22/2021 1 1 Encounter Details Date Type Department Care Team Description 10/30/2020 Hospital Encounter [facility] Galo Coronado MD T [facility] [address] (supraven tricular Heart Care [address] tachycardia) (H) [address] [address] [facility] [place] [address] [place], [place] (Work) [id number] Social History Tobacco Use Types Packs/Day Years [...] How often do you attend catholic or rastafarian services? Never 09/22/2021 Do [...] this encounter Progress Notes Genny Kim - 10/30/2020 8:26 AM CDT Ziopatch was applied for 14 days. Written and verbal instructions were given. documented in this encounter Plan of Treatment Upcoming Encounters Date Type Specialty Care Team Description 04/28/2022 Office Visit Family Practice Anthony Doe, ROVERTO [address] [place], [place] [phone] (Wo rk) 05/03/2022 Office Visit Dermatology Neil Kent M D [address] [place], [place] [address] (Wo rk) 05/05/2022 Office Visit Optometry Yeny David, OD [address] [facility] [place] [phone] (Wo rk) 05/11/2022 Virtual Visit Pharm D Diana Desir , [facility] [address] [place] [address] (Wo rk) 05/14/2022 Office Visit Cardiology Livan Sharif MD [address], [facility] [address] [place], [place] [address] (Wo rk) 05/31/2022 Office Visit Family Practice Valery Veronica , PAUche[facility] [address] [place] [address] (Wo rk) documented as of this encounter Procedures Procedure Name Priority Date/Time Associated Comments Diagnosis LEADLESS MEDICAL STAFF SERVICES COORDINATOR Routine 10/30/2020 8:25 AM SVT R esults for this APPLICATION AND CDT (supraventricular procedu re are in INTERP 8 TO 14 DAYS tachycardia) (H) the results section. documented in this encounter Results LEADLESS MEDICAL STAFF SERVICES COORDINATOR APPLICATION AND INTERP 8 TO 14 DAYS [...] documented as of this encounter Care Teams Seasonal Tax Preparer Relationship Specialty Start Date End Date Marija Edgar APRN PCP - General Nurse Practitioner 04/30/20 LOCK AND DAM OPERATOR [address] [place] [address] Lita Oseguera Personal Advocate & 02/28/20 Liaison (PAL) Chanelle Mccann Assigned OBGYN Provider 05/02/20 05/09/21 ARLENE Mooney CNM [address] [place], [address] [place], [place] [address] Kyara De La Fuente, VJ Specialty Care Neurology 06/04/20 03/05/21 Coordinator Marija Edgar APRN Assigned PCP 06/08/20 LOCK AND DAM OPERATOR [address] [place], [place] [phone] Mynor Broussard MD Assigned Surgical 06/01/20 11/28/[address] [place]AN[place] Provider [address] [place] [id number] Melody Dotson Neuroscience 06/04/20 MD Keisha Provider [address] [place], [place] [address] Stacey Briones, PEDIGREE TRACER Lead Primer And Powder Canning Leader Primary Care - CC 08/11/20 12/30/20 Galo Burrell MD Assigned Heart and 10/05/20 04/02/22 [address] Vascular Provider [address] [place] [id number] Lesley Moody, Community Health Worker 10/23/20 12/30/20 JOSE ALBERTO Meredith Bedoya Financial Resource Worker 10/23/20 11/23/20 documented as of this encounter
--- OUTSIDE RECORDS SUMMARY | 2022-04-28 01:17 | XMS_ITS | Encounter Summary ---
:2000 Author Organization [facility] Address [address] [place] [address]. [place] [address] Care Team Providers Name Role Phone Lita Oseguera Unavailable Unavailable Marija Edgar APRN [facility] Primary Care Provider Chanelle Mccann APRN CN Unavailable + Kyara De La Fuente RN Unavailable Marija Edgar APRN [facility] Unavailable Mynor Broussard MD Unavailable Keisha Dotson MD Unavailable Stacey Briones MANAGER SUBWAY Unavailable Galo Burrell MD Unavailable Cristina Wood Unavailable Unavailable Reason for Visit Reason Comments Patient/info Update SB # Encounter Details Date Type Department Care Team Description 10/10/2020 Documentation Only [facility] Amanda Edgar ent/info Update [facility] ARLENE Dutton (SB #) [address] [place] [address] [facility] [address] [facility] [phone] [place] [address] Social History Tobacco Use Types Packs/Day [...] How often do you attend tenriism or mosque services? Never 09/22/2021 Do you [...] documented as of this encounter Progress Notes Isaura Lamar RN - 10/10/2020 1:36 PM CDT RN chart review. Per Marija Edgar NP list, pt should be listed as SB # 2, and is currently SB#4. RN changed to SB # 2 . Isaura Lamar, Registered Nurse, PAL (Patient Advocate Liaison) [facility] documented in this encounter Plan of Treatment Upcoming Encounters Date Type Specialty Care Team Description 04/28/2022 Office Visit Family Practice Anthony Doe PAUcheC [address] [place], [place] [phone] (Wo rk) 05/03/2022 Office Visit Dermatology Neil Kent M D [address] [place] [address] (Wo rk) 05/05/2022 Office Visit Optometry Yeny David, OD [address] [facility] [address] [place], [place] [phone] (Wo rk) 05/11/2022 Virtual Visit Pharm D Diana Desir , [facility] [address] [place], [place] [address] (Wo rk) 05/14/2022 Office Visit Cardiology Livan Sharif MD [address] [facility] [address] [place], [place] [address] (Wo rk) 05/31/2022 Office Visit Family Practice Valery Veronica PAUcheC [address] [place], [place] [address] (Wo rk) documented as of this encounter Visit Diagnoses Not on filedocumented in this encounter Additional Health Concerns Assessment Noted Time PHQ-9 Depression Total Score: 6 09/29/2020 3:25 PM CDT documented as of this encounter Care Teams Pin Inserter Relationship Specialty Start Date End Date Marija Edgar APRN PCP - General Nurse Practitioner 04/30/20 OFFICE PROFESSIONAL [address] [place], [place] [phone] Lita Oseguera Personal Advocate & 02/28/20 Liaison (PAL) Chanelle Mccann Assigned OBGYN Provider 05/02/20 05/09/21 ARLENE Mooney CNM [address] [place], [address] [place], [place] [address] Kyara De La Fuente, VJ Specialty Care Neurology 06/04/20 03/05/21 Coordinator Marija Edgar APRN Assigned PCP 06/08/20 OFFICE PROFESSIONAL [address] [place] [address] Mynor Broussard MD Assigned Surgical 06/01/20 11/28/21 [address] [place] Provider [address] [place] [address] Mauri, Melody Neuroscience 06/04/20 MD Keisha Provider [address] [place], [place] [address] Stacey Brionse, MANAGER SUBWAY Lead Odd Jobs Day Worker Primary Care - CC 08/11/20 12/30/20 Galo Burrell MD Assigned Heart and 10/05/20 04/02/22 [address] Vascular Provider [address] [place] [address] Cristina Wood Financial Resource Worker 10/07/20 10/14/20 documented as of this encounter
--- OUTSIDE RECORDS SUMMARY | 2022-04-28 01:17 | XMS_ITS | Encounter Summary ---
:2000 Author Organization [facility] Address [address] [place] [address] Care Team Providers Name Role Phone Lita Oseguera Unavailable Unavailable Marija Edgar APRN PANTOGRAPH OPERATOR Primary Care Provider [phone] Chanelle Mccann APRN CNM Unavailable + Kyara De La Fuente RN Unavailable Marija Edgar APRN PANTOGRAPH OPERATOR Unavailable Mynor Broussard MD Unavailable Keisha Dotson MD Unavailable Stacey Briones DRILL PRESS OPERATOR HELPER Unavailable Galo Burrell MD Unavailable Lesley Moody MA Unavailable Meredith Bedoya Unavailable Unavailable Encounter Details Date Type Department Care Team Description 11/15/2020 Travel Social History Tobacco Use Types Packs/Day [...] How often do you attend yazidi or worship services? Never 09/22/2021 Do you [...] Office Visit Family Practice Anthony Doe PA-C [address] [place], [place] [phone] (Wo rk) 05/03/2022 Office Visit Dermatology Neil Kent M D [address] [place], [place] [address] (Wo rk) 05/05/2022 Office Visit Optometry Yeny David, OD [address] [facility] [place] [phone] (Wo rk) 05/11/2022 Virtual Visit Pharm D Diana Desir , [facility] [address] [place] [address] (Wo rk) 05/14/2022 Office Visit Cardiology Livan Sharif MD [address], [facility] [address] [place], [place] [address] (Wo rk) 05/31/2022 Office Visit Family Practice Valery Veronica , PA-C [address] [place] [address] (Wo rk) documented as of this encounter Visit Diagnoses Not on filedocumented in this encounter Additional Health Concerns Assessment Noted Time PHQ-9 Depression Total Score: 6 09/29/2020 3:25 PM CDT documented as of this encounter Care Teams Spectrographic Analyst Relationship Specialty Start Date End Date Marija Edgar APRN PCP - General Nurse Practitioner 04/30/20 PANTOGRAPH OPERATOR [address] [place], [place] [phone] Lita Oseguera Personal Advocate & 02/28/20 Liaison (PAL) Chanelle Mccann Assigned OBGYN Provider 05/02/20 05/09/21 [place] [address] [address] [address] [place], [place] [phone] Kyara De La Fuente, VJ Specialty Care Neurology 06/04/20 03/05/21 Coordinator Marija Edgar APRN Assigned PCP 06/08/20 PANTOGRAPH OPERATOR [address] [place], [place] [phone] Mynor Broussard MD Assigned Surgical 06/01/20 11/28/21 [address] [place] Provider [address] [place] [address] Mauri, Assigned Neuroscience 06/04/20 MD Keisha Provider [address] [place] [address] Stacey Briones, DRILL PRESS OPERATOR HELPER Lead Environmental Health Inspector Primary Care - CC 08/11/20 12/30/20 Galo Burrell MD Assigned Heart and 10/05/20 04/02/22 [address] Vascular Provider [address] [place] [address] Lesley Moody, Community Health Worker 10/23/20 12/30/20 [place] Meredith Bedoya Financial Resource Worker 10/23/20 11/23/20 documented as of this encounter
--- OUTSIDE RECORDS SUMMARY | 2022-04-28 01:17 | XMS_ITS | Encounter Summary ---
:2000 Author Organization [place] Address [address] [place] [address] Care Team Providers Name Role Phone Lita Oseguera Unavailable Unavailable Marija Edgar APRN PUBLIC HOUSING MANAGER Primary Care Provider [phone] Chanelle Mccann APRN CNM Unavailable + Kyara De La Fuente RN Unavailable Marija Edgar APRN PUBLIC HOUSING MANAGER Unavailable Mynor Broussard MD Unavailable Keisha Dotson MD Unavailable Stacey Briones TOP SPOTTER Unavailable Galo Burrell MD Unavailable Lesley Moody MA Unavailable Meredith Bedoya Unavailable Unavailable Reason for Visit Reason Comments Palpitations Encounter Details Date Type Department Care Team Description 11/19/2020 [facility] Medhat Neal, Palpitations; [facility] Emergency Dep t Atypical chest pain [address] [facility] [place], [place] [address] [id number] [facility] [address] [place], [place] [address] (Wo rk) Social History Tobacco Use Types [...] often do you attend oriental orthodox or hindu services? Never 09/22/2021 Do you [...] Sign Reading Time Taken Comments Blood Pressure 124/70 11/19/2020 2:30 AM CDT Pulse 84 11/19/2020 2:30 AM CDT Temperature 36.4 ??C (97.5 ??F) 11/19/2020 1:03 AM CDT Respiratory Rate 18 11/19/2020 1:03 AM CDT Oxygen Saturation 100% 11/19/2020 1:15 AM CDT Inhaled Oxygen Concentration - - Weight - - Height - - Body Mass Index - - documented in this encounter Discharge Instructions AttachmentsThe following attachments cannot be sent through Care Everywhere. Palpitations (South Korean)Chest Pain, Noncardiac ([place] Korean)documented in this encounter Medications at Time of [...] documented as of this encounter ED Notes Leah Sue RN - 11/19/2020 1:46 AM CDT L&D nurse at bedside Stanley Crow RN - 11/19/2020 1:02 AM CDT Feels like heart is pounding really hard. Sometimes skips a beat then a pause then pounds hard again. Seen a door manager for SVT before. 29 weeks . Medhat Neal MD - 11/19/2020 1:00 AM CDT History Chief Complaint: Palpitations HPI 20-year-old female G1, P0 currently 29 weeks here with palpitation and episode of chest discomfort which is since resolved. Patient has a history of SVT and had palpitations prior to pregnancybut has been more noticeable during her . Has a history of SVT follows with cardiology currently on 25 mg of metoprolol. Has felt palpitations or a strong heartbeat premature whole . She occasionally will have an episode of chest pain which she had earlier today currently chest pain-free with no shortness of breath and no recent fever, sore throat, cough. No new peripheral edema. Currently on Macrobid for a urinary tract infection. No abdominal pain or vaginal bleeding. Only had a Zio patch on but has not been informed of the results yet. ?? Currently feels at baseline other than the palpitations. ?? ROS: 10 point ROS neg other than the symptoms noted above in the HPI. ? 09/05/20 Echo The visual ejection fraction is estimated at 55%. The right ventricle is normal in structure, function and size. There is trace to mild pulmonic valvular regurgitation. Giovani Miner MD Allergies: The patient has no known allergies. Medications: Keppra Metoprolol Macrobid Prilosec Sertraline Past Medical History: Anxiety CKD Depression Eczema GERD Seizure SVT Asthma Ureteral stones Psoriasis Past Surgical History: surgery Family History: Brain tumor - sister Physical Exam Patient Vitals for the past 24 hrs: BP Temp Temp src Pulse Resp SpO2 11/19/20 0200 134/75 -- -- 90 -- -- 11/19/20 0145 116/70 -- -- 82 -- -- 11/19/20 0130 130/69 -- -- -- -- -- 11/19/20 0115 127/73 -- -- 86 -- 100 % 11/19/20 0103 131/73 97.5 ??F (36.4 ??C) Temporal 94 18 99 % Physical Exam Gen: well appearing, in no acute distress HENT: mmm, no rhinorrhea Eyes: periorbital tissues and sclera normal Neck: supple, no abnormal swelling Lungs: CTAB, no resp distress CV: rrr, no m/r/g, ppi Abd: Gravid appropriate for dates, soft, nontender, nondistended, no rebound/masses/guarding/hsm Ext: no peripheral edema Skin: warm, dry, well perfused, no rashes/bruising/lesions on exposed skin Neuro: alert, MAEE, no gross motor or sensory deficits, gait stable Psych: Normal mood, normal affect Emergency Department Course ECG ECG taken at 0112, ECG read at 0123 Normal sinus rhythm. Nonspecific ST abnormality. Abnormal ECG. No significant changes as compared to prior, dated 09/24/2020. Rate 89 bpm. ID interval 140 ms. QRS duration 88 ms. QT/QTc 366/445 ms. P-R-T axes 39 56 30. Imaging: POC US Echo Limited Impression -unremarkable bedside limited echo and right upper quadrant views As read by Radiology. Laboratory: BMP: glucose 104(H), o/w WNL (creatinine 0.58) CBC: WBC 11.2(H), HGB 10.1(L), PLT 264 BNP: 12 Troponin (Collected 112): <0.015 Emergency Department Course: Reviewed: I reviewed nursing notes, vitals, past medical history and care everywhere Assessments: 0106 I obtained history and examined the patient as noted above. 0235 I rechecked the patient and explained findings. I answered all questions prior to discharge. Disposition: The patient was discharged to home. Impression & Plan [facility] Diagnoses: None Medical Decision Makin-year-old female with a history of SVT currently maintained on metoprolol here with palpitations. Examination here unremarkable. No associated CHF, occlusive coronary process, myocardial injury. Low suspicion for pulmonary embolism or aortic dissection. Has cardiology follow-up and recentlycompleted a Zio patch and will get the results soon from cardiology. Safe and stable for discharge home. She is comfortable and agreeable with that plan. Diagnosis: ICD-10-CM 1. Palpitations R00.2 2. Atypical chest pain R07.89 Scribe Disclosure: Anamika Denis, am serving as a scribe at 1:05 AM on 11/19/2020 to document services personallyperformed by Medhat Neal MD based on my observations and the provider's statements to me. Medhat Neal MD 11/19/20 0413 documented in this encounter Miscellaneous Notes Plan of Care - Meredith David RN - 11/19/2020 2:24 AM CDT Patient denies ctxs, vaginal bleeding, or abnormal vaginal discharge. EFM applied for 30 mins. FHT reassuring with no decels noted and no ctxs found. documented in this encounter Plan of Treatment Upcoming Encounters Date Type Specialty Care Team Description 04/28/2022 Office Visit Family Practice Anthony Doe, PABaldo [address] [place], [place] [phone] (Wo aldo) 05/03/2022 Office Visit Dermatology Neil Kent M D [address] [place], [place] [address] (Wo aldo) 05/05/2022 Office Visit Optometry Yeny David, OD [address] [facility] [address] [place] [phone] (Wo aldo) 05/11/2022 Virtual Visit Pharm Diana Eckert , [facility] [address] [place] [address] (Jefferson carlson) 05/14/2022 Office Visit Cardiology Livan Sharif MD [address] [place] [address] (Wo rk) 05/31/2022 Office Visit Family Practice Valery Veronica PA-C [address] [place] [address] (Wo rk) documented as of this encounter Procedures Procedure Name Priority Date/Time Associated Comments Diagnosis POC US ECHO LIMITED STAT 11/19/2020 1:23 AM Re sults for this CDT procedure are i n the results section. CBC WITH PLATELETS & STAT 11/19/2020 1:13 AM R esults for this DIFFERENTIAL CDT procedure are i n the results section. TROPONIN I STAT 11/19/2020 1:13 AM Results f or this CDT procedure are i n the results section. NT PROBNP INPATIENT STAT 11/19/2020 1:13 AM Re sults for this CDT procedure are i n the results section. BASIC METABOLIC PANEL STAT 11/19/2020 1:13 AM Results for this CDT procedure are i n the results section. EKG 12-LEAD, TRACING STAT 11/19/2020 1:12 AM R esults for this ONLY CDT [...] PACS protocol Medhat Neal MD IMG POCUS Nt probnp inpatient (BNP) (11/19/2020 1:13 AM CDT) athologist Signature N-Terminal Pro 12 0 - 450 11/19/2020 [place] BNP Inpatient pg/mL 2:00 AM [facility] Comment: Reference range shown and results [...] (Source) Location / / Volume Laterality Blood 11/19/2020 1:13 AM 1 1:38 CDT AM CDT Medhat Neal MD LAB - BLOOD ORDERABLES Performing Organization Address City/State/ZIP Code Phon e Number [place] [address] [place] [address] [facility] [address] [phone] Troponin I (11/19/2020 1:13 AM CDT) athologist [facility] Troponin I ES <0.015 0.000 - 11/19/2020 [place] 0.045 ug/L 2:00 AM [facility] Comment: The 99th percentile for upper reference range is 0.045 ug/L. ??Troponin values in the range of 0.045 - 0.120 ug/L may b e associated with risks of adverse clinical events. Specimen Anatomical Collection Method Collection Time Receive d Time (Source) Location / / Volume Laterality Blood 11/19/2020 1:13 AM 1:38 CDT AM CDT Medhat Neal MD LAB - BLOOD ORDERABLES Performing Organization Address City/State/ZIP Code Phon e Number M [facility] [address] [place], [place] [address] [facility] [address] [place], [place] [address] [phone] (ABNORMAL) Basic metabolic panel (11/19/2020 1:13 AM [facility]) athologist Signature Sodium 135 133 - 144 11/19/2020 [place] mmol/L 1:50 AM [facility] Potassium 3.5 3.4 - 5.3 11/19/2020 [place] mmol/L 1:50 AM [facility] Chloride 104 94 - 109 11/19/2020 [place] mmol/L 1:50 AM [facility] Carbon Dioxide 27 20 - 32 11/19/2020 [place] mmol/L 1:56 AM [facility] Anion Gap 4 3 - 14 11/19/2020 [place] mmol/L 1:56 AM [facility] Glucose 104 (H) 70 - 99 11/19/2020 [place] mg/dL 1:56 AM [facility] Urea Nitrogen 8 7 - 30 11/19/2020 [place] mg/dL 1:56 AM [facility] Creatinine 0.58 0.52 - 11/19/2020 [place] 1.04 mg/dL 1:56 AM [facility] GFR Estimate >90 >60 11/19/2020 [place] mL/min/{1. 1:56 AM [facility] 73_m2} HOSPITAL Comment: Non GFR Calc Starting 06/27/2018, serum creatinine ba sed estimated GFR (eGFR) will be calculated using the Chronic Kidney Dise [facility] Epidemiology Collaboration (CKD-EPI) equation. GFR Estimate If >90 >60 mL/min/{1.73_m2} 11/19/2020 1: 56 AM [facility] Comment: GFR Calc Starting 06/27/2018, serum creatinine ba sed estimated GFR (eGFR) will be calculated using the Chronic Kidney Dise [facility] Epidemiology Collaboration (CKD-EPI) equation. Calcium 8.9 8.5 - 10.1 mg/dL 11/19/2020 1:56 AM [facility] Specimen Anatomical Collection Method Collection Time Receive d Time (Source) Location / / Volume Laterality Blood 11/19/2020 1:13 AM 1:38 CDT AM CDT Medhat Neal MD LAB - BLOOD ORDERABLES Performing Organization Address City/State/ZIP Code Phon e Number M [facility] [address] [place] [address] [facility] [address] [place], [place] [address], [facility] [phone] [facility] [address] [facility] [place] [address], [facility] (ABNORMAL) CBC with platelets differential (11/19/2020 1:13 AM CDT) [facility] Method Time Signature WBC 11.2 (H) 4.0 - 11/19/2020 [facility] 11.0 1:42 AM [facility] 10e9/L [facility] RBC Count 3.84 3.8 - 5.2 11/19/2020 [facility] 10e12/L 1:42 AM [facility] Hemoglobin 10.1 (L) 11.7 - 11/19/2020 [facility] 15.7 g/dL 1:42 AM [facility] Hematocrit 32.4 (L) 35.0 - 11/19/2020 [facility] 47.0 % 1:42 AM [facility] MCV 84 78 - 100 11/19/2020 [facility] fl 1:42 AM [facility] MCH 26.3 (L) 26.5 - 11/19/2020 [facility] 33.0 pg 1:42 AM [facility] MCHC 31.2 (L) 31.5 - 11/19/2020 [facility] 36.5 g/dL 1:42 AM [facility] RDW 12.8 10.0 - 11/19/2020 [facility] 15.0 % 1:42 AM [facility] Platelet Count 264 150 - 450 11/19/2020 [facility] 10e9/L 1:42 AM [facility] Diff Method Automated 11/19/2020 [facility] Method 1:42 AM [facility] % Neutrophils 70.0 % 11/19/2020 [facility] 1:42 AM [facility] % Lymphocytes 19.9 % 11/19/2020 [facility] 1:42 AM [facility] % Monocytes 6.1 % 11/19/2020 [facility] 1:42 AM [facility] % Eosinophils 2.5 % 11/19/2020 [facility] 1:42 AM [facility] % Basophils 0.2 % 11/19/2020 [facility] 1:42 AM [facility] % Immature 1.3 % 11/19/2020 [facility] Granulocytes 1:42 AM [facility] Nucleated RBCs 0 0 /100 11/19/2020 [facility] 1:42 AM [facility] Absolute 7.8 1.6 - 8.3 11/19/2020 [facility] Neutrophil 10e9/L 1:42 AM [facility] Absolute 2.2 0.8 - 5.3 11/19/2020 [facility] Lymphocytes 10e9/L 1:42 AM [facility] Absolute 0.7 0.0 - 1.3 11/19/2020 [facility] Monocytes 10e9/L 1:42 AM [facility] Absolute 0.3 0.0 - 0.7 11/19/2020 [facility] Eosinophils 10e9/L 1:42 AM [facility] Absolute 0.0 0.0 - 0.2 11/19/2020 [facility] Basophils 10e9/L 1:42 AM [facility] Abs Immature 0.2 0 - 0.4 11/19/2020 [facility] Granulocytes 10e9/L 1:42 AM [facility] Absolute 0.0 11/19/2020 [facility] Nucleated RBC 1:42 AM [facility] Specimen Anatomical Collection Method Collection Time Receive d Time (Source) Location / / Volume Laterality Blood 11/19/2020 1:13 AM 1:38 CDT AM T Medhat Neal MD LAB - BLOOD ORDERABLES Performing Organization Address City/State/ZIP Code Phon e Number M [facility] [address] [place] [address] [facility] [address] [place] [id number] [facility] [phone] EKG 12-lead, tracing only (11/19/2020 1:12 AM CDT) [facility] gist Method Time Signature Interpretation ECG Click View RADIOLOGY Image link RESULTS to view waveform and result Specimen (Source) Anatomical Collection Method Collection Time Re ceived Time Location / / Volume Laterality 11/19/2020 1:12 AM CDT Medhat Neal MD ECG ORDERABLES Performing Organization Address City/State/ZIP Code Phon e Number RADIOLOGY RESULTS documented in this encounter Visit Diagnoses Diagnosis Palpitations Atypical chest pain Other chest pain documented in this encounter Additional Health Concerns Assessment Noted Time PHQ-9 Depression Total Score: 6 09/29/2020 3:25 PM CDT documented as of this encounter Care Teams Fur Polisher Relationship Specialty Start Date End Date Marija Edgar APRN PCP - General Nurse Practitioner 04/30/20 PUBLIC HOUSING MANAGER [address] [place], [place] [phone] Lita Oseguera Personal Advocate & 02/28/20 Liaison (PAL) Chanelle Mccann Assigned OBGYN Provider 05/02/20 05/09/21 [place] [address] [address] [address] [place], [place] [address] Kyara De La Fuente RN Specialty Care Neurology 06/04/20 03/05/21 Coordinator Marija Edgar APRN Assigned PCP 06/08/20 PUBLIC HOUSING MANAGER [address] [place], [place] [phone] Mynor Broussard MD Assigned Surgical 06/01/20 11/28/21 [address] [facility] Provider [address] [address] Mauri, Assigned Neuroscience 06/04/20 MD Keisha Provider [address] [place] [address] Stacey Briones, TOP SPOTTER Lead Lumber Salvager Primary Care - CC 08/11/20 12/30/20 Galo Burrell MD Assigned Heart and 10/05/20 04/02/22 [address] Vascular Provider [address] [place], [place] [phone] Lesley Moody, Community Health Worker 10/23/20 12/30/20 [place] Meredith Bedoya Financial Resource Worker 10/23/20 11/23/20 documented as of this encounter
--- OUTSIDE RECORDS SUMMARY | 2022-04-28 01:17 | XMS_ITS | Encounter Summary ---
:2000 Author Organization [place] Address [address] [place] [address] Care Team Providers Name Role Phone Lita Oseguera Unavailable Unavailable Marija Edgar APRN LEGAL TECHNICIAN Primary Care Provider [phone] Chanelle Mccann APRN CNM Unavailable + Kyara De La Fuente RN Unavailable Marija Edgar APRN LEGAL TECHNICIAN Unavailable Mynor Broussard MD Unavailable Keisha Dotson MD Unavailable Stacey Briones INSIDE [employer]S SALES Unavailable Mary Mejia Unavailable Unavailable Galo Burrell MD Unavailable Cristina Wood Unavailable Unavailable Lesley Moody MA Unavailable Meredith Bedoya Unavailable Unavailable Cristina Wood Unavailable Unavailable Diana Desir [facility] Unavailable Rain Galaviz PA-C Unavailable [phone] Summer Lara MD Unavailable Reason for Visit Reason Onset Date Comments Referral 10/06/2020 Referral for counseling psychologist ing Encounter Details Date Type Department Care Team Description 10/06/2020 Telephone [facility] Marija Edgar Referr agustin (Referral for Clinic [place] BOAT CAMP OPERATOR LEGAL TECHNICIAN counseling) [address] [facility] [address] [place] [address] [phone] Social History Tobacco Use Types Packs/Day Years [...] How often do you attend jain or sikh services? Never 09/22/2021 Do you [...] Encounter - Marija Edgar APRN CNP - 10/06/2020 5:28 PM CDT Current referral is good for anywhere. She could attempt to call other local Psychologists to see if they are doing F2F visit. I have patient's that have gone to [facility] in [place] that were happy. Thank you Marija Edgar APRN CNP on 10/06/2020 at 5:29 PM Telephone Encounter - Faiza Lane - 10/06/2020 5:00 PM CDT Order/Referral Request: Who is requesting: Kim Orders being requested: Already has referral, pt states [facility] not doing any F2F, visits, other referralwas out months, needs more options. Reason service is needed/diagnosis: When are orders needed by: [place] Has this been discussed with Provider: Yes Does patient have a preference on a Group/Provider/Facility? n/a Does patient have an appointment scheduled: No Where to send Orders: Please call pt Okay to leave detailed message? Yes at Cell number on file: Telephone Information: documented in this encounter Plan of Treatment Upcoming Encounters Date Type Specialty Care Team Description 04/28/2022 Office Visit Family Practice Anthony Doe PA-C [address] [place], [place] [phone] (Wo rk) 05/03/2022 Office Visit Dermatology Neil Kent M D [address] [place] [phone] (Wo rk) 05/05/2022 Office Visit Optometry Yeny David, OD [address] [place] [address] (Wo rk) 05/11/2022 Virtual Visit Pharm D Diana Desir , [facility] [address] [place], [place] [address] (Wo rk) 05/14/2022 Office Visit Cardiology Livan Sharif MD [address] [place], [place] [address] (Wo rk) 05/31/2022 Office Visit Family Practice Valery Veronica PA-C [address] [place] [address] (Wo rk) documented as of this encounter Visit Diagnoses Not on filedocumented in this encounter Additional Health Concerns Infection Onset Date Last Indicated Resolved Time Rule Out COVID-19 11/05/2020 11/05/2020 11/06/2020 1:0 9 PM CDT Rule Out COVID-19 05/11/2021 05/11/2021 05/13/2021 10: 18 AM CDT Assessment Noted Time PHQ-9 Depression Total Score: 6 09/29/2020 3:25 PM CDT documented as of this encounter Care Teams Security Director Relationship Specialty Start Date End Date Marija Edgar APRN PCP - General Nurse Practitioner 04/30/20 LEGAL TECHNICIAN [address] [place], [place] [phone] Lita Oseguera Personal Advocate & 02/28/20 Liaison (PAL) Chanelle Mccann Assigned OBGYN Provider 05/02/20 05/09/21 ARLENE Mooney [facility] [address] [address] [address] [place], [place] [phone] Kyara De La Fuente, VJ Specialty Care Neurology 06/04/20 03/05/21 Coordinator Marija Edgar APRN Assigned PCP 06/08/20 LEGAL TECHNICIAN [address] [place] [address] Mynor Broussard MD Assigned Surgical 06/01/20 11/28/[address] Provider [address] [place] [address] Keisha Dotson, Assigned Neuroscience 06/04/20 MD Provider [address] [place] [address] Stacey Briones, INSIDE PARTS SALES Lead Childcare Center Administrator Primary Care - CC 08/11/20 12/30/20 Mary Mejia Financial Resource 09/02/2009/09 Worker Galo Burrell MD Assigned Heart and 10/05/20 04/02/22 [address] [place] [address] Cristina Wood Financial Resource 10/07/20 10/14/20 Worker Lesley Moody, Community Health Worker 10/23/20 12/30/20 [place] Meredith Bedoya Financial Resource 10/23/20 11/23/20 Worker Cristina Wood Financial Resource 02/09/21 02/09/21 Worker Diana Desir, [facility] Pharmacist Pharmacist 04/17/21 [address] [place], [place] [address] Rain Galaviz Physician Leather Finisher Dermatology 04/28/21 ROVERTO Paredes [address] [facility] [address] [place] [phone] Summer Lara MD Assigned OBGYN Provider 05/10/21 05/23/[address] [place] [address] documented as of this encounter
--- OUTSIDE RECORDS SUMMARY | 2022-04-28 01:17 | XMS_ITS | Encounter Summary ---
:2000 Author Organization [facility] Address [address] [place] [address]. [place] [address] Care Team Providers Name Role Phone Lita Oseguera Unavailable Unavailable Marija Edgar APRN COTTON CLASSER AIDE Primary Care Provider Chanelle Mccann APRN CNM Unavailable + Kyara De La Fuente RN Unavailable Marija Edgar APRN COTTON CLASSER AIDE Unavailable Mynor Broussard MD Unavailable Keisha Dotson MD Unavailable Stacey Briones OB/GYN DOCTOR Unavailable Mary Mejia Unavailable Unavailable Reason for Visit Reason Comments Urgent Care Pt c/o increased heart rate of about 140 at home. Short of breath. speking in full sentences Encounter Details Date Type Department Care Team Description 10/03/2020 Office Visit [facility] Roney Liang SVT (s upraventricular Urgent Care PA-C tachycardia) (H) [facility] (Primary Dx) [address] [place], [place] [address] [address] [place] [address] (Wo rk) Social History Tobacco Use Types [...] How often do you attend denominational or sabianism services? Never 09/22/2021 Do you [...] Sign Reading Time Taken Comments Blood Pressure 124/71 10/03/2020 2:54 PM CDT Pulse 107 10/03/2020 2:54 PM CDT Temperature 36.8 ??C (98.2 ??F) 10/03/2020 2:54 PM CDT Respiratory Rate 24 10/03/2020 2:54 PM CDT Oxygen Saturation 100% 10/03/2020 2:54 PM CDT Inhaled Oxygen Concentration - - Weight 90.3 kg (199 lb) 10/03/2020 2:54 PM CDT Height 170.2 cm (5' 7) 10/03/2020 2:54 PM CDT Body Mass Index 31.17 10/03/2020 2:54 PM CDT documented in this encounter Progress Notes Roney Liang PA-C - 10/03/2020 2:50 PM CDT Assessment & Plan 1. SVT (supraventricular tachycardia) (H) Dr. Burrell her Pharmaceutical Analyst feels that she would potentially benefit with increasing her dose of metoprolol to 50 mg daily. She is willing to do so after he was contacted and that information was relayed to her. She is aware that if symptoms persist that she contact Dr. Burrell at his office. ROVERTO Hoang [facility] Kim is a 20 year old female who presents to clinic today for the following health issues: Chief Complaint Patient presents with ??? Urgent Care Pt c/o increased heart rate of about 140 at home. Short of breath. speking in full sentences HPI Here for rapid heart rate and shortness of breath. Has SVT she says everyday including today. Super short of breath and felt hot. Heart racing for 30 minutes she states up to 140. 22 weeks . Metoprolol 25 mg daily for SVT. No missed doses. She also is taking sertraline 150 mg daily with no missed doses. this is not my anxiety. I only get anxious after my heart rate goes up. Cardiologistdoes not want to increase metoprolol she says due to lowering of blood pressure in the past. Ablation is an option in the future after delivery. Review of Systems Objective BP 124/71 Pulse 107 Temp 98.2 ??F (36.8 ??C) (Oral) Resp 24 Ht 1.702 m (5' 7) Wt 90.3 kg (199 lb) LMP 04/29/2020 SpO2 100% BMI 31.17 kg/m?? Physical Exam Cardiovascular: Rate and Rhythm: Normal rate and regular rhythm. Heart sounds: Normal heart sounds. Pulmonary: Effort: Pulmonary effort is normal. Breath sounds: Normal breath sounds and air entry. documented in this encounter Plan of Treatment Upcoming Encounters Date Type Specialty Care Team Description 04/28/2022 Office Visit Family [facility] Anthony Doe PA-C [address] [place], [place] [phone] (Wo rk) 05/03/2022 Office Visit Dermatology Neil Kent M D [address] [place], [place] [address] (Wo rk) 05/05/2022 Office Visit Optometry Yeny David, OD [address] [facility] [address] [place], [place] [phone] (Wo rk) 05/11/2022 Virtual Visit Pharm D Diana Desir , [facility] [address] [place], [place] [address] (Wo rk) 05/14/2022 Office Visit Cardiology Livan Sharif MD [address] [facility] [address] [place] [address] (Wo rk) 05/31/2022 Office Visit [facility] Valery Veronica PA-C [address]09 [place] [address] (Wo rk) documented as of this encounter Visit Diagnoses Diagnosis SVT (supraventricular tachycardia) (H) - Primary Other specified cardiac dysrhythmias documented in this encounter Additional Health Concerns Assessment Noted Time PHQ-9 Depression Total Score: 6 09/29/2020 3:25 PM CDT documented as of this encounter Care Teams Ticker Wirer Relationship Specialty Start Date End Date Marija Edgar APRN PCP - General Nurse Practitioner 04/30/20 COTTON CLASSER AIDE [address] [place], [place] [phone] Lita Oseguera Personal Advocate & 02/28/20 Liaison (PAL) Chanelle Mccann Assigned OBGYN Provider 05/02/20 05/09/21 ARLENE Mooney CNM [address] [place], [facility] [address] [place], [place] [address] Kyara De La Fuente, VJ Specialty Care Neurology 06/04/20 03/05/21 Coordinator Marija Edgar APRN Assigned PCP 06/08/20 COTTON CLASSER AIDE [address] [place] [address] Mynor Broussard MD Assigned Surgical 06/01/20 11/28/21 [address] [facility] Provider [address] [place], [place] [address] Keisha Dotson, Assigned Neuroscience 06/04/20 MD Provider [address] [place], [place] [phone] Stacey Briones, MARIANGEL Lead Visual Effects Editor Primary Care - CC 08/11/20 12/30/20 Mary Mejia Financial Resource 09/02/2009/09 Worker documented as of this encounter
--- OUTSIDE RECORDS SUMMARY | 2022-04-28 01:17 | XMS_ITS | Encounter Summary ---
:2000 Author Organization [facility] Address [address] [place] [address] Care Team Providers Name Role Phone Lita Oseguera Unavailable Unavailable Marija Edgar APRN CAPACITY PLANNING ANALYST Primary Care Provider [phone] Chanelle Mccann APRN CNM Unavailable + Kyara De La Fuente RN Unavailable Marija Edgar APRN CAPACITY PLANNING ANALYST Unavailable Mynor Broussard MD Unavailable Keisha Dotson MD Unavailable Stacey Briones AIRPLANE FIRST OFFICER Unavailable Galo Burrell MD Unavailable Lesley Moody MA Unavailable Meredith Bedoya Unavailable Unavailable Reason for Visit Reason Onset Date Comments Clinic Care Coordination - Follow-up 11/17/2020 Encounter Details Date Type Department Care Team Description 11/17/2020 [facility] Margaret Ching, Clinic Care Coordination Clinic Cesar RN - Follow-up [address] [facility] [address] [place] [address] Social History Tobacco [...] How often do you attend judaism or zoroastrianism services? Never 09/22/2021 Do you [...] Telephone Encounter - Joanne Portillo RN - 12/03/2020 8:31 AM CDT 12/02/20 Pt called and stated she saw her POWER 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 yesterday and she discussed her HR range and her episodes of SVT. POWER 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 recommended she discuss w Dr Burrell and also get suggestions on a plan, whether this should include a or natural due to her palpitations/arrythmias. Pt is very anxious and has been calling Afib RNs almost every day. Therefore OV moved up to Tuesday 12/05 to discuss plan and review recent ZP with Dr Burrell. Pt stated her POWER 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 would like a call from Dr Burrell after OV 12/05 to discuss plan further Pt voiced understanding and agreement with plan. KHerroRN 834 am Telephone Encounter - Alexus Avalos RN - 12/01/2020 5:24 PM CDT Pt will see Dr Burrell on 12/10 in [place] at 1315. Mundo Telephone Encounter - Alexus Avalos RN - 12/01/2020 12:23 PM CDT Pt called and wondering if she can change her OV to a telephone, d/t it getting harder to drive as she gets farther along with her . Pt also notes that she was just sitting around the fire andlaughed and her hr went up to 210 bpm. LM for pt to call back to see if pt can do video visit or need to be telephone. Mundo Telephone Encounter - Alexus Avalos RN - 12/01/2020 12:11 PM CDT Late Note: This marketing underwriter did speak to pt On 11/26 about her ZP results not showing any SVT, but did show W[place]kebach. Explained Wenkeback to the best of this writers ability. Asked if pt had any fast heartrates while wearing the ZP and stated that she had had 3 episodes, so was surprised that nothing wasnoted. Because pt continued to have more questions. Pt was placed on Dr Burrell schedule to be seen on 12/04 at 1315. Mundo Telephone Encounter - Alexus Avalos RN - 11/26/2020 12:55 PM CDT Pt called and LM to see if the ZP has arrived. LM for pt to call back. JNelsonRN Telephone Encounter - Joanne Portillo RN - 11/18/2020 1:49 PM CDT 11/18/20 Pt returned call and explained to her that monitor results are still pending and that it maytake up to 4 business days to obtain results so latest will be 11/19.Pt is concerned because heart seems to be beating really hard so that sometimes she can see her chest and shirt move. She denies CP, SOB, lightheadedness during this time. Explained that due to her , space is tight in her thoracic cavity and that her fluid volume is high as well. Pt voiced understanding and will proceed to ED if she becomes symptomatic. Will await monitor results. ROGERerroRN 213 pm Telephone Encounter - Margaret Rendon RN - 11/17/2020 5:24 PM CDT Patient called left message on afib nurse line inquiring about results of leadless monitor and concerns with strong hard heartbeat. Message left for patient to call back to discuss further. Did check on leadless monitor and it was just received at rhythm on 11/14 so it will be a few days until report will be complete. awaiting return call. VJ Kennedy documented in this encounter Plan of Treatment Upcoming Encounters Date Type Specialty Care Team Description 04/28/2022 Office Visit Family Practice Anthony Doe, ROVERTO [address] [place] [address] (Wo rk) 05/03/2022 Office Visit Dermatology Neil Kent M D 500 [place], [place] [address] (Wo rk) 05/05/2022 Office Visit Optometry Yeny David, OD [address] [facility] [address] [place], [place] [phone] (Wo rk) 05/11/2022 Virtual Visit Pharm D Daina Desir , [facility] [address] [place], [place] [address] (Wo rk) 05/14/2022 Office Visit Cardiology Livan Sharif MD [address] [facility] [address] [place], [place] [address] (Wo rk) 05/31/2022 Office Visit Family Practice Valery Veronica , PA-C [address] [place], [place] [address] (Wo rk) documented as of this encounter Visit Diagnoses Not on filedocumented in this encounter Additional Health Concerns Assessment Noted Time PHQ-9 Depression Total Score: 6 09/29/2020 3:25 PM CDT documented as of this encounter Care Teams Travertine Installer Relationship Specialty Start Date End Date Marija Edgar APRN PCP - General Nurse Practitioner 04/30/20 CAPACITY PLANNING ANALYST [address] [place] [address] Lita Oseguera Personal Advocate & 02/28/20 Liaison (PAL) Chanelle Mccann Assigned OBGYN Provider 05/02/20 05/09/21 [place] [address] [address] [facility] [address] [place], [place] [address] Kyara De La Fuente, VJ Specialty Care Neurology 06/04/20 03/05/21 Coordinator Marija Edgar APRN Assigned PCP 06/08/20 CAPACITY PLANNING ANALYST [address] [place] [address] Mynor Broussard MD Assigned Surgical 06/01/20 11/28/21 [address] [place] Provider [address] [place] [address] Mauri, Assigned Neuroscience 06/04/20 MD Keisha Provider [address] [place], [place] [address] Stacey Briones, AIRPLANE FIRST OFFICER Lead Nursing Teacher Primary Care - CC 08/11/20 12/30/20 Galo Burrell MD Assigned Heart and 10/05/20 04/02/22 [address] Vascular Provider [address] [place] [address] Lesley Moody, Community Health Worker 10/23/20 12/30/20 MA Meredith Bedoya Financial Resource Worker 10/23/20 11/23/20 documented as of this encounter
--- OUTSIDE RECORDS SUMMARY | 2022-04-28 01:17 | XMS_ITS | Encounter Summary ---
:2000 Author Organization [facility] Address [address] [place] [address] Care Team Providers Name Role Phone Lita Oseguera Unavailable Unavailable Marija Edgar APRN CARE PARTNER Primary Care Provider [phone] Chanelle Mccann APRN CNM Unavailable + Kyara De La Fuente RN Unavailable Marija Edgar APRN CARE PARTNER Unavailable Mynor Broussard MD Unavailable Keisha Dotson MD Unavailable Stacey Briones MAT LINKER Unavailable Lesley Moody MA Unavailable Mary Mejia Unavailable Unavailable Encounter Details Date Type Department Care Team Description 09/30/2020 Travel Social History Tobacco Use Types Packs/Day [...] How often do you attend muslim or quaker services? Never 09/22/2021 Do you [...] been in contact with No / Unsure 09/30/2020 8:08 AM CDT someone who was confirmed or suspected to have Coronavirus / COVID-19? documented as of this encounter Plan of Treatment Upcoming Encounters Date Type Specialty Care Team Description 04/28/2022 Office Visit Family Practice Anthony Doe PA-C [address] [place], [place] [phone] (Wo rk) 05/03/2022 Office Visit Dermatology Neil Kent M D [address] [place] [phone] (Wo rk) 05/05/2022 Office Visit Optometry Yeny David, OD [address] [facility] [address] [place] [phone] (Wo rk) 05/11/2022 Virtual Visit Pharm D Diana Desir , [facility] [address] [place], [place] [address] (Wo rk) 05/14/2022 Office Visit Cardiology Livan Sharif MD [address] [place] [address] [place], [place] [address] (Wo rk) 05/31/2022 Office Visit Family Practice Valery Veronica , [place] [address] [place], [place] [address] (Wo rk) documented as of this encounter Visit Diagnoses Not on filedocumented in this encounter Additional Health Concerns Assessment Noted Time PHQ-9 Depression Total Score: 6 09/29/2020 3:25 PM CDT documented as of this encounter Care Teams Turning Lathe Tender Relationship Specialty Start Date End Date Marija Edgar APRN PCP - General Nurse Practitioner 04/30/20 CARE PARTNER [address] [place], [place] [phone] Lita Oseguera Personal Advocate & 02/28/20 Liaison (PAL) Chanelle Mccann Assigned OBGYN Provider 05/02/20 05/09/21 [place] [address] [place], [place] [address] [place], [place] [address] Kyara De La Fuente, VJ Specialty Care Neurology 06/04/20 03/05/21 Coordinator Marija Edgar APRN Assigned PCP 06/08/20 CARE PARTNER [address] [place], [place] [phone] Mynor Broussard MD Assigned Surgical 06/01/20 11/28/21 [address] [place] Provider [address] [place], [place] [address] Keisha Dotson, Assigned Neuroscience 06/04/20 MD Provider [address] [place] [address] Stacey Briones, MAT LINKER Lead Shovel Mechanic Primary Care - CC 08/11/20 12/30/20 Lesley Moody, Community Health Worker 08/11/20 10/01/20 [place] Mary Mejia Financial Resource 09/02/2009/09 Worker documented as of this encounter
--- OUTSIDE RECORDS SUMMARY | 2022-04-28 01:18 | XMS_ITS | Encounter Summary ---
:2000 Author Organization [facility] Address [address] [place] [address]. [place] [address] Care Team Providers Name Role Phone Lita Oseguera Unavailable Unavailable Marija Edgar APRN PRODUCTION ILLUSTRATOR Primary Care Provider [phone] Chanelle Mccann APRN CNM Unavailable + Kyara De La Fuente RN Unavailable Marija Edgar APRN PRODUCTION ILLUSTRATOR Unavailable Mynor Broussard MD Unavailable Keisha Dotson MD Unavailable Stacey Briones DRAFTER DETAIL Unavailable Lesley Moody MA Unavailable Mary Mejia Unavailable Unavailable Reason for Visit Reason Onset Date Comments No Show 09/23/2020 Encounter Details Date Type Department Care Team Description 09/23/[address] [facility] Marija Edgar NO SHO W (Primary Dx) Clinic [place] OVERHEAD LINE WORKER PRODUCTION ILLUSTRATOR [address] [address] [phone] Social History Tobacco Use Types Packs/Day Years [...] How often do you attend sikhism or gnosticist services? Never 09/22/2021 Do you [...] been in contact with No / Unsure 09/17/2020 1:23 PM CLIENT SOLUTIONS MANAGER someone who was confirmed or suspected to have Coronavirus / COVID-19? documented as of this encounter Progress Notes Marija Edgar APRN CNP - 09/23/2020 2:30 PM CDT This patient was a no show for this scheduled appointment. documented in this encounter Plan of Treatment Upcoming Encounters Date Type Specialty Care Team Description 04/28/2022 Office Visit Family [facility] Anthony Doe PAUcheC [address] [place], [place] [phone] (Wo rk) 05/03/2022 Office Visit Dermatology Neil Kent M D [address] [place], [place] [address] (Wo rk) 05/05/2022 Office Visit Optometry Yeny David, OD [address] [facility] [address] [place], [place] [phone] (Wo rk) 05/11/2022 Virtual Visit Pharm Diana Eckert , [facility] [address] [place], [place] [address] (Wo rk) 05/14/2022 Office Visit Cardiology Livan Sharif MD [address], [facility] [address] [place] [address] (Wo rk) 05/31/2022 Office Visit Family [facility] Valery Veronica , [address]AB[address]do [address] [place] [address] (Wo rk) documented as of this encounter Visit Diagnoses Diagnosis NO SHOW - Primary documented in this encounter Additional Health Concerns Assessment Noted Time PHQ-9 Depression Total Score: 9 06/25/2020 7:04 AM CLIENT SOLUTIONS MANAGER documented as of this encounter Care Teams Lip Of Shank Cutter Relationship Specialty Start Date End Date Marija Edgar APRN PCP - General Nurse Practitioner 04/30/20 PRODUCTION ILLUSTRATOR [address] [place], [place] [phone] Lita Oseguera Personal Advocate & 02/28/20 Liaison (PAL) Chanelle Mccann Assigned OBGYN Provider 05/02/20 05/09/21 [place] [address] [place], [place] [address] [place], [place] [address] Kyara De La Fuente, VJ Specialty Care Neurology 06/04/20 03/05/21 Coordinator Marija Edgar APRN Assigned PCP 06/08/20 PRODUCTION ILLUSTRATOR [address] [place], [place] [phone] Mynor Broussard MD Assigned Surgical 06/01/20 11/28/21 [address] [facility] Provider 500 [place], [place] [phone] Keisha Dotson, Assigned Neuroscience 06/04/20 MD Provider 909 [place] [address] Stacey Briones, DRAFTER DETAIL Lead Cutting And Creasing Press Operator Primary Care - CC 08/11/20 12/30/20 Lesley Moody, Community Health Worker 08/11/20 10/01/20 JOSE ALBERTO Mary Mejia Financial Resource 09/02/2009/09 Worker documented as of this encounter
--- OUTSIDE RECORDS SUMMARY | 2022-04-28 01:18 | XMS_ITS | Encounter Summary ---
:2000 Author Organization [facility] Address [address] [place] [address] Care Team Providers Name Role Phone Lita Oseguera Unavailable Unavailable Marija Edgar APRN SQUIRREL MAN Primary Care Provider [phone] Chanelle Mccann APRN CNM Unavailable + Kyara De La Fuente RN Unavailable Marija Edgar APRN SQUIRREL MAN Unavailable Mynor Broussard MD Unavailable Keisha Dotson MD Unavailable Stcaey Briones BIOTECHNICIAN Unavailable Lesley Moody MA Unavailable Mary Mejia Unavailable Unavailable Encounter Details Date Type Department Care Team Description 09/29/2020 Travel Social History Tobacco Use Types Packs/Day [...] How often do you attend mosque or taoist services? Never 09/22/2021 Do you [...] been in contact with No / Unsure 09/29/2020 1:56 PM CDT someone who was confirmed or suspected to have Coronavirus / COVID-19? documented as of this encounter Plan of Treatment Upcoming Encounters Date Type Specialty Care Team Description 04/28/2022 Office Visit Family Practice Anthony Doe PA-C [address] [place], [place] [phone] (Wo rk) 05/03/2022 Office Visit Dermatology Neil Kent M D [address] [place] [phone] (Wo rk) 05/05/2022 Office Visit Optometry Yeny David, OD [address] [facility] [address] [place] [phone] (Wo rk) 05/11/2022 Virtual Visit Pharm D Diana Desir , [facility] [address] [place], [place] [address] (Wo rk) 05/14/2022 Office Visit Cardiology Livan Sharif MD [address] [place] [address] [place], [place] [address] (Wo rk) 05/31/2022 Office Visit Family Practice Valery Veronica , PABaldo [address] [place], [place] [address] (Wo rk) documented as of this encounter Visit Diagnoses Not on filedocumented in this encounter Additional Health Concerns Assessment Noted Time PHQ-9 Depression Total Score: 6 09/29/2020 3:25 PM CDT documented as of this encounter Care Teams Link Trainer Operator Relationship Specialty Start Date End Date Marija Edgar APRN PCP - General Nurse Practitioner 04/30/20 SQUIRREL MAN [address] [place], [place] [phone] Lita Oseguera Personal Advocate & 02/28/20 Liaison (PAL) Chanelle Mccann Assigned OBGYN Provider 05/02/20 05/09/21 [place] [address] [place], [facility] 200 [place], [place] [address] Kyara De La Fuente, VJ Specialty Care Neurology 06/04/20 03/05/21 Coordinator Marija Edgar APRN Assigned PCP 06/08/20 SQUIRREL MAN [address] [place], [place] [phone] Mynor Broussard MD Assigned Surgical 06/01/20 11/28/21 [address] [place] Provider [address] [place], [place] [address] Keisha Dotson, Assigned Neuroscience 06/04/20 MD Provider [address] [place] [address] Stacey Briones, BIOTECHNICIAN Lead Minister Of Religion Primary Care - CC 08/11/20 12/30/20 Lesley Moody, Community Health Worker 08/11/20 10/01/20 [place] Mary Mejia Financial Resource 09/02/2009/09 Worker documented as of this encounter
--- OUTSIDE RECORDS SUMMARY | 2022-04-28 01:18 | XMS_ITS | Encounter Summary ---
:2000 Author Organization [facility] Address [address] [place] [address]. [place] [address] Care Team Providers Name Role Phone Lita Oseguera Unavailable Unavailable Marija Edgar APRN, CNP Primary Care Provider [phone] Chanelle Mccann APRN CNM Unavailable + Kyara De La Fuente RN Unavailable Marija Edgar APRN CEMENT HANDLER Unavailable Mynor Broussard MD Unavailable Keisha Dotson MD Unavailable Stacey Briones DRIVER MERCHANDISER Unavailable Lesley Moody MA Unavailable Mary Mejia Unavailable Unavailable Reason for Referral Mental Health Outpatient (Routine) - Closed Specialty Diagnoses / Procedures Referred By Contact Refer red To Contact Diagnoses KALYN (generalized anxiety disorder) Moderate episode of recurrent major depressive disorder (H) Marija Edgar APRN CEMENT HANDLER [address] [place], [place] [address] Referral ID Status Reason Start Date Expiration Date Visits Requ ested Visits Authorized [id number] Closed 09/29/2020 09/29/2021 1 1 Reason for Visit Reason Comments Results Encounter Details Date Type Department Care Team Description 09/29/2020 Office Visit [facility] Marija Edgar Modera te episode of recurrent major depressive disorder (H) (Primary Dx); [facility] PALS SPECIALIST CEMENT HANDLER KALYN (generalized anxiety disorder); [address] [facility] [address] [place] [address] [phone] Social History Tobacco Use Types Packs/Day Years [...] week 09/22/2021 How often do you attend temple or latter day services? Never 09/22/2021 Do you belong to any clubs or organizations such as No 09/22/2021 temple groups, unions, fraternal or athletic groups, or [...] Sign Reading Time Taken Comments Blood Pressure 110/68 09/29/2020 2:07 PM CDT Pulse 55 09/29/2020 2:07 PM CDT Temperature 36.8 ??C (98.2 ??F) 09/29/2020 2:07 PM CDT Respiratory Rate - - Oxygen Saturation 95% 09/29/2020 2:07 PM CDT Inhaled Oxygen Concentration - - Weight 89.4 kg (197 lb) 09/29/2020 2:07 PM CDT Height - - Body Mass Index 31.8 09/24/2020 10:01 AM CDT documented in this encounter Patient Instructions Patient InstructionsGiMarija candelaria APRN CNP - 09/29/2020 2:30 PM CDT [facility] Scheduling or Questions Email: [email or web address] documented in this encounter Progress Notes Marija Edgar APRN CNP - 09/29/2020 2:30 PM CDT Assessment & Plan Moderate episode of recurrent major depressive disorder (H) KALYN (generalized anxiety disorder) Anxiety uncontrolled. Subjectively not able to control anxiety until she better understand her palpitations. Has follow-up with Cardiology tomorrow. Discussed and agreed upon Counseling for symptoms management. Thorough discussion of coping skills. Continue with sertraline. - MENTAL HEALTH REFERRAL - Adult; Outpatient Treatment; Individual/Couples/Family/Group Therapy/Health Psychology; [facility]: [facility] ; We will contact you to schedule the ap pointment or please call with any questions Palpitations Continue metoprolol Push fluids Follow-up with Cardiology Clinic as planned. I spent a total of 49 minutes on the day of the visit. BMI: Estimated body mass index is 31.8 kg/m?? as calculated from the following: Height as of 09/24/20: 1.676 m (5' 6). Weight as of this encounter: 89.4 kg (197 lb). No follow-ups on file. Marija Edgar APRN CNP [facility] YOSSI Alvarez is a 20 year old who presents for the following health issues History of Present Illness Mental Health Follow-up: Patient presents to follow-up on Depression & Anxiety.Patient's depression since last visit has been: Worse The patient is having other symptoms associated with depression. Patient's anxiety since last visit has been: Bad The patient is having other symptoms associated with anxiety. Any significant life events: relationship concerns and health concerns Patient is feeling anxious or having panic attacks. Patient has no concerns about alcohol or drug use. Social History Tobacco Use Smoking status: Former Smoker Packs/day: 1.00 Types: Other Quit date: 12/07/2019 Years since quittin.8 Smokeless tobacco: Never Used Alcohol use: Not Currently Frequency: Never Drinks per session: Patient refused Binge frequency: Never Drug use: No Today's PHQ-9 PHQ-9 Total Score: (P) 6 PHQ-9 Q9 Thoughts of better off /self-harm past 2 weeks : (P) Not at all Thoughts of suicide or self harm: Self-harm Plan: Self-harm Action: Safety concerns for self or others: Vascular Disease: She presents for follow up of vascular disease. She never takes nitroglycerin. Sheis not taking daily aspirin. She eats 2-3 servings of fruits and vegetables daily.She consumes 1 sweetened beverage(s) daily.She exercises with enough effort to increase her heart rate 10 to 19 minutes per day. She exercises with enough effort to increase her heart rate 3 or less days per week. She is missing 1 dose(s) of medications per week. She is not taking prescribed medications regularly due to remembering to take. Pt here to discuss ZIO patch results for SVT. Normal Echocardiogram. Will be following up with [facility] Cardiology Clinic tomorrow ( 09/30/20) Remains with intermittently symptoms Has been working closely with her OBGYN. Currently 22 weeks . PHQ 06/04/2020 06/24/2020 09/29/2020 PHQ-9 Total Score 9 9 6 Q9: Thoughts of better off /self-harm past 2 weeks Not at all Not at all Not at all KALYN-7 SCORE 06/04/2020 06/24/2020 09/29/2020 Total Score - 7 (mild anxiety) 12 (moderate anxiety) Total Score 13 7 12 Review of Systems Constitutional, HEENT, cardiovascular, pulmonary, gi and gu systems are negative, except as otherwise noted. Objective BP 110/68 Pulse 55 Temp 98.2 ??F (36.8 ??C) (Oral) Wt 89.4 kg (197 lb) LMP 04/29/2020 RwY465% BMI 31.80 kg/m?? Body mass index is 31.8 kg/m??. Physical Exam GENERAL: healthy, alert and no distress RESP: regular rate and effort. documented in this encounter Plan of Treatment Upcoming Encounters Date Type Specialty Care Team Description 04/28/2022 Office Visit Family Practice Anthony oDe, ROVERTO [address] [place], [place] [phone] (Wo rk) 05/03/2022 Office Visit Dermatology Neil [place] M D [address] [place], [place] [address] (Wo rk) 05/05/2022 Office Visit Optometry Yeny David, OD [address] [facility] [address] [place] [phone] (Wo rk) 05/11/2022 Virtual Visit Pharm D Diana Desir , [facility] [address] [place], [place] [phone] (Wo rk) 05/14/2022 Office Visit Cardiology Livan Sharif MD [address] [facility] [address] [place], [place] [address] (Wo rk) 05/31/2022 Office Visit Family Practice Valery Veronica PA-C [address] [place] [address] (Wo rk) Scheduled Referrals Name Type Priority Associated Diagnoses [facility] REFERRAL - Referral Routine KALYN (generalized Ordered: 09/29/2020 Adult; Outpatient anxiety disord er) Treatment; Moderate episode of Individual/Couples/Famil recurrent major y/Group Therapy/Health depressive disorde r (H) Psychology; [facility]: [facility] ; We will contact you to schedule the appointment or please call with any questions documented as of this encounter Visit Diagnoses Diagnosis Moderate episode of recurrent major depr essive disorder (H) - Primary KALYN (generalized anxiety disorder) Generalized anxiety disorder Palpitations documented in this encounter Additional Health Concerns Assessment Noted Time PHQ-9 Depression Total Score: 6 09/29/2020 3:25 PM CDT documented as of this encounter Care Teams Mainspring Strip Gauger Relationship Specialty Start Date End Date Marija Edgar APRN PCP - General Nurse Practitioner 04/30/20 CEMENT HANDLER [address] [place], [place] [phone] Lita Oseguera Personal Advocate & 02/28/20 Liaison (PAL) Chanelle Mccann Assigned OBGYN Provider 05/02/20 05/09/21 [place] [address] 34[facility] [address] [place], [place] [address] Kyara De La Fuente, VJ Specialty Care Neurology 06/04/20 03/05/21 Coordinator Marija Edgar APRN Assigned PCP 06/08/20 CEMENT HANDLER [address] [place], [place] [phone] Mynor Broussard MD Assigned Surgical 06/01/20 11/28/21 6363 [facility] Provider [address] [place], [place] [address] Keisha Dotson, Assigned Neuroscience 06/04/20 MD Provider [address] [place] [address] Stacey Briones, DRIVER MERCHANDISER Lead Grounds Cleaner Primary Care - CC 08/11/20 12/30/20 Lesley Moody, Community Health Worker 08/11/20 10/01/20 OR Mary Mejia Financial Resource 09/02/2009/09 Worker documented as of this encounter
--- OUTSIDE RECORDS SUMMARY | 2022-04-28 01:18 | XMS_ITS | Encounter Summary ---
:2000 Author Organization [facility] Address [address] [place] [address] Care Team Providers Name Role Phone Lita Oseguera Unavailable Unavailable Marija Edgar APRN PV DESIGN ENGINEER Primary Care Provider [phone] Chanelle Mccann APRN CNM Unavailable + Kyara De La Fuente RN Unavailable Marija Edgar APRN PV DESIGN ENGINEER Unavailable Mynor Broussard MD Unavailable Keisha Dotson MD Unavailable Stacey Briones CAVITY PUMP OPERATOR Unavailable Lesley Moody MA Unavailable Mary Mejia Unavailable Unavailable Encounter Details Date Type Department Care Team Description 09/29/2020 Telephone [facility] Kiesha Dotson, [address] [place], [place] [phone] [place] [address] (Wo rk) Social History Tobacco [...] this encounter Miscellaneous Notes Telephone Encounter - Kyara De La Fuente RN - 09/30/2020 2:08 PM CDT Patient's situation was discussed with Dr. Murray. Orders received for ambulatory EEG. This was communicated to the patient. At this point, she would like to start counseling and see where that goes before changing her medications or doing further testing. She will contact us if things change. Telephone Encounter - Yfn Peck MA - 09/29/2020 1:06 PM CDT Patient would like a call back today to discuss instead switching medication, if she can just see how therapy goes and go from there. Telephone Encounter - Kyara De La Fuente RN - 09/29/2020 12:20 PM CDT Patient states she has pulmonary regurgitation. Patient has been having passing thoughts about suicide. She asks about coming off keppra since she hasn't had a seizure for 3 years and because she has been taking such a low dose of the medicine. She is taking keppra 500 mg once daily and admits that she was asked to increase to 500 mg BID but didn't do this because she didn't want to. She is not seeing a therapist but has an appointment with her primary care doctor today; she will talk to PCP about depression and anxiety and fora therapy referral. She consents to staying safe. Telephone Encounter - Sweta Tee - 09/29/2020 12:13 PM CDT Pt recently changed meds due to , and now will occasionally have strong depression and suicidal thoughts. She is not sure if these are coming from the new meds or the . Last seizure was over 3 years ago. documented in this encounter Plan of Treatment Upcoming Encounters Date Type Specialty Care Team Description 04/28/2022 Office Visit Family Practice Anthony Doe PA-C [address] [place] [address] (Wo rk) 05/03/2022 Office Visit Dermatology Neil [place] M D [address] [place], [place] [address] (Wo rk) 05/05/2022 Office Visit Optometry Yeny David, OD [address] [facility] [place] [address] (Wo rk) 05/11/2022 Virtual Visit Pharm D Diana Desir , [facility] [address] [place], [place] [address] (Wo rk) 05/14/2022 Office Visit Cardiology Livan Sharif MD [address] [facility] [address] [place], [place] [phone] (Wo rk) 05/31/2022 Office Visit Family Practice Valery Veronica , PA-C [address] [place], [place] [address] (Wo rk) documented as of this encounter Visit Diagnoses Not on filedocumented in this encounter Additional Health Concerns Assessment Noted Time PHQ-9 Depression Total Score: 6 09/29/2020 3:25 PM CDT documented as of this encounter Care Teams Disease Case Manager Rn Relationship Specialty Start Date End Date Marija Edgar APRN PCP - General Nurse Practitioner 04/30/20 PV DESIGN ENGINEER [address] [place], [place] [phone] Lita Oseguera Personal Advocate & 02/28/20 Liaison (PAL) Chanelle Mccann Assigned OBGYN Provider 05/02/20 05/09/21 [place] [address] 34[facility] 200 [place] [address] Kyara De La Fuente, VJ Specialty Care Neurology 06/04/20 03/05/21 Coordinator Marija Edgar APRN Assigned PCP 06/08/20 PV DESIGN ENGINEER [address] [place] [address] Mynor Broussard MD Assigned Surgical 06/01/20 11/28/21 [address] Provider [address] [place], [place] [address] Keisha Dotson, Assigned Neuroscience 06/04/20 MD Provider [address] [place], [place] [address] Stacey Briones, CAVITY PUMP OPERATOR Lead Oxygen Equipment Technician Primary Care - CC 08/11/20 12/30/20 Lesley Moody, Community Health Worker 08/11/20 10/01/20 ID Mary Mejia Financial Resource 09/02/2009/09 Worker documented as of this encounter
--- OUTSIDE RECORDS SUMMARY | 2022-04-28 01:18 | XMS_ITS | Encounter Summary ---
:2000 Author Organization [facility] Address [address] [place] [address] Care Team Providers Name Role Phone Lita Oseguera Unavailable Unavailable Marija Edgar APRN RAILROAD CRANE OPERATOR Primary Care Provider [phone] Chanelle Mccann APRN CNM Unavailable + Kyara De La Fuente RN Unavailable Marija Edgar APRN RAILROAD CRANE OPERATOR Unavailable Mynor Broussard MD Unavailable Keisha Dotson MD Unavailable Stacey Briones SHRINK PIT SUPERVISOR Unavailable Lesley Moody MA Unavailable Mary Mejia Unavailable Unavailable Encounter Details Date Type Department Care Team Description 09/08/2020 Travel Social History Tobacco Use Types Packs/Day [...] How often do you attend anabaptist or christian services? Never 09/22/2021 Do you [...] been in contact with No / Unsure 09/08/2020 3:07 PM MANAGEMENT ACCOUNTS MANAGER someone who was confirmed or suspected to have Coronavirus / COVID-19? documented as of this encounter Plan of Treatment Upcoming Encounters Date Type Specialty Care Team Description 04/28/2022 Office Visit Family Practice Anthony Doe PA-C [address] [place], [place] [phone] (Wo rk) 05/03/2022 Office Visit Dermatology Neil [place] M D [address] [place] [phone] (Wo rk) 05/05/2022 Office Visit Optometry Yeny David, OD [address] [facility] [address] [place] [phone] (Wo rk) 05/11/2022 Virtual Visit Pharm D Diana Desir , [facility] [address] [place], [place] [address] (Wo rk) 05/14/2022 Office Visit Cardiology Livan Sharif MD [address], [facility] [address] [place], [place] [address] (Wo rk) 05/31/2022 Office Visit Family Practice Valery Veronica , PAUcheC [address] [place], [place] [address] (Wo rk) documented as of this encounter Visit Diagnoses Not on filedocumented in this encounter Additional Health Concerns Assessment Noted Time PHQ-9 Depression Total Score: 9 06/25/2020 7:04 AM MANAGEMENT ACCOUNTS MANAGER documented as of this encounter Care Teams Chimney Construction Supervisor Relationship Specialty Start Date End Date Marija Edgar APRN PCP - General Nurse Practitioner 04/30/20 RAILROAD CRANE OPERATOR [address] [place] [address] Lita Oseguera Personal Advocate & 02/28/20 Liaison (PAL) Chanelle Mccann Assigned OBGYN Provider 05/02/20 05/09/21 [place] [address] [address] [facility], [facility] [address] [place], [place] [address] Kyara De La Fuente, VJ Specialty Care Neurology 06/04/20 03/05/21 Coordinator Marija Edgar APRN Assigned PCP 06/08/20 RAILROAD CRANE OPERATOR [address] [place], [place] [phone] Mynor Broussard MD Assigned Surgical 06/01/20 11/28/21 [address] [facility] Provider [address] [place] [address] Keisha Dotson, Assigned Neuroscience 06/04/20 MD Provider [address] [place] [address] Stacey Briones, SHRINK PIT SUPERVISOR Lead Scouts Primary Care - CC 08/11/20 12/30/20 Lesley Moody, Community Health Worker 08/11/20 10/01/20 PR Mary Mejia Financial Resource 09/02/2009/09 Worker documented as of this encounter
--- OUTSIDE RECORDS SUMMARY | 2022-04-28 01:18 | XMS_ITS | Encounter Summary ---
:2000 Author Organization [place] Address [facility] [place] [address] Care Team Providers Name Role Phone Lita Oseguera Unavailable Unavailable Marija Edgar APRN ABLE BODIED TANKERMAN Primary Care Provider [phone] Chanelle Mccann APRN CNM Unavailable + Kyara De La Fuente RN Unavailable Marija Edgar APRN ABLE BODIED TANKERMAN Unavailable Mynor Broussard MD Unavailable Keisha Dotson MD Unavailable Stacey Briones FIRE SPRINKLER SERVICE TECHNICIAN Unavailable Lesley Moody MA Unavailable Mary Mejia Unavailable Unavailable Reason for Visit Reason Comments Ultrasound L2- epilepsy Encounter Details Date Type Department Care Team Description 09/09/2020 Office Visit [facility] Saurabh Marcial MD OBGYN SPECIALISTS [address] [facility] 200 [place] [address] related Maternal Summer Lara MD [address] [place] [address] condition, antepartum Medicine Center (Primary Dx) [facility] [address] [place] [address] Social History Tobacco Use Types Packs/Day Years [...] week 09/22/2021 How often do you attend jew or rastafari services? Never 09/22/2021 Do you belong to any clubs or organizations such as No 09/22/2021 jew groups, unions, fraternal or athletic groups, or [...] been in contact with No / Unsure 09/09/2020 10:09 AM AUTOMOTIVE TEACHER someone who was confirmed or suspected to have Coronavirus / COVID-19? documented as of this encounter Progress Notes Summer Lara MD - 09/09/2020 10:45 AM CST Please see ultrasound report under Imaging tab for details of today's ultrasound. Summer Lara MD Maternal- Medicine MOTIVE TEACHER documented in this encounter Plan of Treatment Upcoming Encounters Date Type Specialty Care Team Description 04/28/2022 Office Visit [facility] Anthony Doe PA-C [address] [place], [place] [phone] (Wo rk) 05/03/2022 Office Visit Dermatology Neil [place] M D [address] [employer], [place] [phone] (Wo rk) 05/05/2022 Office Visit Optometry Yeny David, OD [address] [facility] [address] [place] [phone] (Wo rk) 05/11/2022 Virtual Visit Pharm D Diana Desir , [facility] [address] [place], [place] [address] (Wo rk) 05/14/2022 Office Visit Cardiology Livan Sharif MD [address] [facility] [address] [place] [address] (Wo rk) 05/31/2022 Office Visit Family [facility] Valery Veronica PA-C [address] [place] [address] (Wo rk) documented as of this encounter Visit Diagnoses Diagnosis related condition, antepartum - Primary documented in this encounter Additional Health Concerns Assessment Noted Time PHQ-9 Depression Total Score: 9 06/25/2020 7:04 AM AUTOMOTIVE TEACHER documented as of this encounter Care Teams Intake Worker Relationship Specialty Start Date End Date Marija Edgar APRN PCP - General Nurse Practitioner 04/30/20 ABLE BODIED TANKERMAN [address] [place], [place] [phone] Lita Oseguera Personal Advocate & 02/28/20 Liaison (PAL) Chanelle Mccann Assigned OBGYN Provider 05/02/20 05/09/21 ARLENE Mooney CNM [address] [place], [address] [place] [address] Kyara De La Fuente, VJ Specialty Care Neurology 06/04/20 03/05/21 Coordinator Marija Edgar APRN Assigned PCP 06/08/20 ABLE BODIED TANKERMAN [address] [place] [address] Mynor Broussard MD Assigned Surgical 06/01/20 11/28/21 6[address] [facility] Provider [address] [place], [place] [address] Keisha Dotson, Assigned Neuroscience 06/04/20 MD Provider [address] [place], [place] [phone] Stacey Briones, FIRE SPRINKLER SERVICE TECHNICIAN Lead Mail Weigher Primary Care - CC 08/11/20 12/30/20 Lesley Moody, Community Health Worker 08/11/20 10/01/20 JOSE ALBERTO Mary Mejia Financial Resource 09/02/2009/09 Worker documented as of this encounter
--- OUTSIDE RECORDS SUMMARY | 2022-04-28 01:18 | XMS_ITS | Encounter Summary ---
:2000 Author Organization [facility] Address [address] [place] [address]. [place] [address] Care Team Providers Name Role Phone Lita Oseguera Unavailable Unavailable Marija Edgar APRN CUSTODY ASSISTANT Primary Care Provider [phone] Chanelle Mccann APRN CNM Unavailable + Kyara De La Fuente RN Unavailable Marija Edgar APRN CUSTODY ASSISTANT Unavailable Mynor Broussard MD Unavailable Keisha Dotson MD Unavailable Stacey Briones ASSISTANCE SPECIALIST Unavailable Lesley Moody MA Unavailable Mary Mejia Unavailable Unavailable Reason for Visit Reason Onset Date Comments Echocardiogram [place] 09/22/2020 Encounter Details Date Type Department Care Team Description 09/22/2020 [facility] Marija Edgar Echoca rdiogram Clinic [place] HOME SUPERVISOR CUSTODY ASSISTANT [place] [address] [address] [phone] Social History Tobacco Use Types Packs/Day Years [...] How often do you attend cheondoism or judaism services? Never 09/22/2021 Do you [...] with No / Unsure 09/17/2020 1:23 PM JAVA CORE DEVELOPER someone who was confirmed or suspected to have Coronavirus / COVID-19? documented as of this encounter Miscellaneous Notes Telephone Encounter - Marija Edgar APRN CNP - 09/22/2020 3:16 PM CDT Will discuss with patient at visit planned for 09/23/20 Marija Edgar APRN CNP on 09/22/2020 at 3:16 PM Telephone Encounter - Jerome Ferrell RN - 09/22/2020 2:45 PM CDT Called patient per below. Patient states that if it is normal then why does it show regurgitation inthe tricuspid and pulmonic valve. Patient states this would explain what she is going through. Advised that some trace regurgitation can be normal but would send message to provider for further clarification. Jerome Joe RN, BSN Telephone Encounter - Marija Edgar APRN CNP - 09/22/2020 12:38 PM CDT Echocardiogram appears normal. Please have patient follow-up with Cardiology as previous recommended. Thank you Marija Edgar APRN CNP on 09/22/2020 at 12:39 PM Telephone Encounter - Katerine Waggoner RN - 09/22/2020 12:25 PM CDT Routing to PCP: The Pt called in wanting feedback on an echocardiogram performed on 09/05/20. Some confusion was to who ordered this test. Please advise. Katerine Waggoner RN [facility] -- Triage Nurse documented in this encounter Plan of Treatment Upcoming Encounters Date Type Specialty Care Team Description 04/28/2022 Office Visit Family Practice Anthony Doe, ROVERTO [address] [place], [place] [phone] (Wo aldo) 05/03/2022 Office Visit Dermatology Neil Kent M D [address] [place] [phone] (Wo aldo) 05/05/2022 Office Visit Optometry Yeny David, OD [address] [facility] [address] [place], [place] [phone] (Wo rk) 05/11/2022 Virtual Visit Pharm Diana Eckert , [facility] [address] [place], [place] [address] (Wo rk) 05/14/2022 Office Visit Cardiology Livan Sharif MD [address] [facility] [address] [place], [place] [address] (Wo rk) 05/31/2022 Office Visit Family Practice Valery Veronica , PA-C [address]09 [place], [place] [address] (Wo rk) documented as of this encounter Visit Diagnoses Not on filedocumented in this encounter Additional Health Concerns Assessment Noted Time PHQ-9 Depression Total Score: 9 06/25/2020 7:04 AM JAVA CORE DEVELOPER documented as of this encounter Care Teams Parts Casting Machine Operator Relationship Specialty Start Date End Date Marija Edgar APRN PCP - General Nurse Practitioner 04/30/20 CUSTODY ASSISTANT [address] [place], [place] [phone] Lita Oseguera Personal Advocate & 02/28/20 Liaison (PAL) Chanlele Mccann Assigned OBGYN Provider 05/02/20 05/09/21 ARLENE Mooney [facility] [address] [facility] 200 [place], [place] [address] Kyara De La Fuente, VJ Specialty Care Neurology 06/04/20 03/05/21 Coordinator Marija Edgar APRN Assigned PCP 06/08/20 CUSTODY ASSISTANT [address] [place], [place] [phone] Mynor Broussard MD Assigned Surgical 06/01/20 11/28/21 [address] Provider 500 [place], [place] [phone] Keisha Dotson, Assigned Neuroscience 06/04/20 Provider 909 [place] [address] Stacey Briones, ASSISTANCE SPECIALIST Lead Tank House Operator Primary Care - CC 08/11/20 12/30/20 Lesley Moody, Community Health Worker 08/11/20 10/01/20 [place] Mary Mejia Financial Resource 09/02/2009/09 Worker documented as of this encounter
--- OUTSIDE RECORDS SUMMARY | 2022-04-28 01:18 | XMS_ITS | Encounter Summary ---
:2000 Author Organization [facility] Address [address] [place] [address] Care Team Providers Name Role Phone Lita Oseguera Unavailable Unavailable Marija Edgar APRN NUT GRADER Primary Care Provider [phone] Chanelle Mccann APRN CNM Unavailable + Kyara De La Fuente RN Unavailable Marija Edgar APRN NUT GRADER Unavailable Mynor Broussard MD Unavailable Keisha Dotson MD Unavailable Stacey Briones INDUSTRIAL CHEMIST Unavailable Lesley Moody MA Unavailable Mary Mejia Unavailable Unavailable Encounter Details Date Type Department Care Team Description 09/09/2020 Travel Social History Tobacco Use Types Packs/Day [...] How often do you attend scientology or presybeterian services? Never 09/22/2021 Do you [...] with No / Unsure 09/09/2020 10:09 AM DIRECTOR OF COMPENSATION someone who was confirmed or suspected to have Coronavirus / COVID-19? documented as of this encounter Plan of Treatment Upcoming Encounters Date Type Specialty Care Team Description 04/28/2022 Office Visit Family Practice Anthony Doe PA-C [address] [place], [place] [phone] (Wo rk) 05/03/2022 Office Visit Dermatology Neil Kent M D [address] [place] [phone] (Wo rk) 05/05/2022 Office Visit Optometry Yeny David, OD [address] [place] [phone] (Wo rk) 05/11/2022 Virtual Visit Pharm D Diana Desir , [facility] [address] [place], [place] [phone] (Wo rk) 05/14/2022 Office Visit Cardiology Livan Sharif MD [address], [facility] [address] [place], [place] [address] (Wo rk) 05/31/2022 Office Visit Family Practice Valery Veronica , PAUcheC 909 [place], [place] [address] (Wo rk) documented as of this encounter Visit Diagnoses Not on filedocumented in this encounter Additional Health Concerns Assessment Noted Time PHQ-9 Depression Total Score: 9 06/25/2020 7:04 AM DIRECTOR OF COMPENSATION documented as of this encounter Care Teams Analysis Director Relationship Specialty Start Date End Date Marija Edgar APRN PCP - General Nurse Practitioner 04/30/20 NUT GRADER [address] [place] [address] Lita Oseguera Personal Advocate & 02/28/20 Liaison (PAL) Chanelle Mccann Assigned OBGYN Provider 05/02/20 05/09/21 [place] [address] [address] [facility], [facility] 200 [place], [place] [address] Kyara De La Fuente, VJ Specialty Care Neurology 06/04/20 03/05/21 Coordinator Marija Edgar APRN Assigned PCP 06/08/20 NUT GRADER [address] [place], [place] [phone] Mynor Broussard MD Assigned Surgical 06/01/20 11/28/21 [address] [facility] Provider 500 [place] [address] Keisha Dotson, Assigned Neuroscience 06/04/20 MD Provider [address] [place] [address] Stacey Briones, INDUSTRIAL CHEMIST Lead Color Paste Mixer Primary Care - CC 08/11/20 12/30/20 Lesley Moody, Community Health Worker 08/11/20 10/01/20 [place] Mary Mejia Financial Resource 09/02/2009/09 Worker documented as of this encounter
--- OUTSIDE RECORDS SUMMARY | 2022-04-28 01:18 | XMS_ITS | Encounter Summary ---
:2000 Author Organization [place] Address [address] [place] [address]. [place] [address] Care Team Providers Name Role Phone Lita Oseguera Unavailable Unavailable Marija Edgar MEMBERSHIP ADMINISTRATOR PREFORMS LAMINATOR Primary Care Provider [phone] Chanelle Mccann APRN CNM Unavailable + Kyara De La Fuente RN Unavailable Marija Edgar APRN PREFORMS LAMINATOR Unavailable Mynor Broussard MD Unavailable Keisha Dotson MD Unavailable Stacey Briones PNEUMATIC JACKETER Unavailable Lesley Moody MA Unavailable Mary Mejia Unavailable Unavailable Reason for Referral Diagnostic Imaging Ultrasound (Routine) - Closed Specialty Diagnoses / Procedures Referred By Contact Refer red To Contact Diagnoses related condition, antepartum Saurabh Nunez MD Procedures MFM US Comprehensive Single [facility] [address] [facility] [address] [place] [address] Referral ID Status Reason Start Date Expiration Date Visits Requ ested Visits Authorized [id number] Closed 08/13/2020 08/13/2021 1 1 MOTIVE PARTS COORDINATOR Reason for Visit Diagnostic Imaging Ultrasound (Routine) - Closed Specialty Diagnoses / Procedures Referred By Contact Refer red To Contact Diagnoses related condition, antepartum Saurabh Nunez MD Procedures [facility] [address] [facility] [address] [place] [address] Referral ID Status Reason Start Date Expiration Date Visits Requ ested Visits Authorized [id number] Closed 08/13/2020 08/13/2021 1 1 Encounter Details Date Type Department Care Team Description 09/09/2020 Hospital Encounter [facility] Percy Nunez MD [facility] [address] [facility] [address] [place], [place] [phone] related Maternal Summer Lara MD [address] [place], [place] [address] condition, Medicine Center antepartum [place] [address] [place] [address] Social History Tobacco Use Types [...] How often do you attend muslim or gnosticism services? Never 09/22/2021 Do you [...] No / Unsure 09/09/2020 10:09 AM AUTOMOTIVE PARTS COORDINATOR someone who was confirmed or suspected to have Coronavirus / COVID-19? documented as of this encounter Medications at Time of Discharge Medication Sig Dispensed Refills Start Date End Date Vit-Fe Take 1 tablet by 90 tablet 3 06/04/2020 Fumarate-FA ( mouth daily MULTIVITAMIN W/IRON) 27-0.8 MG tablet folic acid (FOLVITE) 1 Take 1 tablet (1 mg) 180 tablet 3 01/11/2021 MG tabletIndications: by mouth 2 times Convulsions, unspecified daily convulsion type (H) lamoTRIgine (LAMICTAL) Take 1 tablet (25 180 tablet 1 202009/30/2020 25 MG tabletIndications: mg) by mouth daily Convulsions, unspecified Take 1 tablet daily convulsion type (H) x2 weeks and then increase as instructed to 150 mg twice a day levETIRAcetam (KEPPRA) Take 1 tab twice a 90 tablet 3 06/0402/24/2021 500 MG day for 1 week and tabletIndications: then 1 1/2 tabs Convulsions, unspecified twice a day convulsion type (H) metoprolol succinate ER Take 1 tablet (25 30 tablet 0 08/2910/07/2020 (TOPROL-XL) 25 MG 24 hr mg) by mouth daily tablet naproxen (NAPROSYN) 500 Take 500 mg by mouth 0 09/30/2020 MG tablet omeprazole (PRILOSEC) 40 Take 1 capsule (40 90 capsule 3 03/03/[address] mg) by mouth daily capsuleIndications: Epigastric pain sertraline (ZOLOFT) 100 TAKE ONE AND 135 tablet 0 07/17/2020 10/06/2020 MG tabletIndications: ONE-HALF TABLETS BY Anxiety MOUTH EVERY DAY documented as of this encounter Plan of Treatment Upcoming Encounters Date Type Specialty Care Team Description 04/28/2022 Office Visit Family Practice Anthony Doe, PAUcheC [address] [place] [address] (Wo rk) 05/03/2022 Office Visit Dermatology Neil Kent M D 500 [place] [address] (Wo rk) 05/05/2022 Office Visit Optometry Yeny David, OD [address] [facility] [address] [place] [phone] (Wo rk) 05/11/2022 Virtual Visit Pharm D Diana Desir , [facility] [address] [place], [place] [phone] (Wo rk) 05/14/2022 Office Visit Cardiology Livan Sharif MD [address] , [facility] [address] [place], [place] [address] (Wo rk) 05/31/2022 Office Visit Family Practice Valery Veronica , PAUcheC 9[address] [place] [address] (Wo rk) documented as of this encounter Procedures Procedure Name Priority Date/Time Associated Comments Diagnosis [facility] COM[facility]ENSIVE Routine 09/09/2020 10:57 relate d Results for this SINGLE AM AUTOMOTIVE PARTS COORDINATOR condition, procedure are i n antepartum the results section. documented in this encounter Results [facility] Comprehensive Single (09/09/2020 10:57 AM AUTOMOTIVE PARTS COORDINATOR) Anatomical Region Laterality Modality Ultrasound Specimen (Source) Anatomical Collection Method Collection Time Re ceived Time Location / / Volume Laterality 09/09/2020 10:10 AM AUTOMOTIVE PARTS COORDINATOR Impressions 09/09/2020 11:13 AM AUTOMOTIVE PARTS COORDINATOR IMPRESSION 1) De La Rosa intrauterine at 1 9w 0d gestational age. 2) None of the anomalies commonly detect ed by ultrasound were evident in the detailed anatomic survey as described above. 3) Growth parameters and estimated weight were consistent with established dates. 4) The amniotic fluid volume appeared no rmal. 5) On transabdominal imaging the cervix appears long and closed. Narrative 09/09/2020 11:13 AM AUTOMOTIVE PARTS COORDINATOR Comprehensive Pat. Name: KIM CLARK Study Date: 08/2020 10:10am Pat. NO: [id number] Referring ??: SAURABH NUNEZ Site: [facility] Tier: Natasha Lynn RD MS : 2000 Age: 20 INDICATION Seizure disorder. METHOD Transabdominal ultrasound examination. V iew: Sufficient De La Rosa . Number of fetuses: 1 DATING ? Date ?Details ?Gest. age ?JANEE LMP ?04/29/2020 ? 19 w + 0 d ? 02/03/2021 Prior assessment ? 12 /09/2019 ? GA: 6 w + 1 d ?18 w + 6 d ? 02/04/2021 U/S ? 09/09/2020 ?based upon AC, BPD, Femur, HC ? 19 w + 0 d ? 02/03/2021 Assigned dating ?Dating performed on 09/09/2020, based on the LMP ?19 w + 0 d ? 02/03/2021 GENERAL EVALUATION Cardiac activity present. FHR 159 bpm. movements present. Presentation Variable. Placenta No Previa, > 2 cm from internal os, Anterior. Umbilical cord 3 vessel cord. Amniotic fluid Amount of AF: normal. MVP 7.4 cm. BIOMETRY Main Biometry: BPD ?41.8 ?mm ? 18w 5d ?Hadlock OFD ?57.6 ?mm ? 18w 6d ?Nicolaides HC ?159.2 ?mm ?18w 5d ?Hadlock Cerebellum tr ?19.2 ? mm ?18w 4d ?Nicolaides AC ?141.1 ?mm ?19w 3d ?62% ?Hadlock Femur ?29.4 ? mm ?19w 0d ?Hadlock Humerus ?29.2 ?mm ? 19w 4d ?Harley Weight Calculation: EFW ? 280 ? g ? 58% ?Hadlock EFW (lb,oz) ? 0 lb 10 ? oz EFW by ?Abdulkadir ([id number]) Head / Face / Neck Biometry: Rag Grader ? 7.6 ? mm CM ?4.8 ? mm Nasal bone ? 7.0 ? mm Nuchal fold ? 3.2 ? mm ANATOMY The following structures appear normal: Head / Neck ? Cranium. Head size. Head shape. Lateral ventricles. Choroid plexus. Midline falx. Cavum septi pellucidi. Cerebellum. Cisterna magna. ? Parenchyma. Thalami. Vermis. ? Neck. Nuchal fold. Face ? Lips. Profile. Nose. Maxilla. Mandible. Orbits. Lens. Heart / Thorax ?4-chamber view. RVOT view. LVOT view. Situs. Aortic arch view. Bicaval view. Ductal arch view. Superior vena cava. Inferior vena cava. 3-vessel ? view. 7-tzawrt-mrjulkv view. Cardiac position. Cardiac size. Cardiac rhythm. ? Right lung. Left lung. Diaphragm. Abdomen ? Abdominal wall. Cord insertion. Stomach. Kidneys. Bladder. Liver. Bowel. Genitals. Spine ?Cervical spine. Thoracic spine. Lumbar spine. Sacral spine. Extremities / Skeleton ?Rig ht arm. Right hand. Left arm. Left hand. Right leg. Right foot. Left leg. Left foot. MATERNAL STRUCTURES Cervix ?Visualized ? Appearance: Appears Closed ? Approach - Transabdominal: Cervical length 38.6 mm Right Ovary ?Visualized Left Ovary ?Visualized RECOMMENDATION Thank-you for referring your patient for a comprehensive ultrasound. I discussed the findings on today's ultr asound with Kim and her mother. I reviewed the limitations of ultrasound both in detecting aneuploidy and structural abnormalities. I recommended serial ultrasounds every 4 -6 weeks to assess growth starting at 28 weeks due to epilepsy and metoprolol use. Return to primary provider for continued care. anomalies may be present but not detected Procedure Note Summer Lara MD - 09/09/2020Gabbi alves of this note might be different from the original. Comprehensive Pat. Name:Khoa CLARK Date:2020 10:10am Pat. NO: [id number] MD:SAURABH GALAN Site:[place]idgeonographer:Natasha Lynn RDMS :2000Age:20 INDICATION Seizure disorder. METHOD Transabdominal ultrasound examination. V iew: Sufficient De La Rosa . Number of fetuses: 1 DATING Date Details Gest. age JANEE LMP 04/29/2020 19 w + 0 d 02/03/2021 Prior assessment 06/12/2020 GA: 6 w + 1 d 18 w + 6 d 02/04/2021 U/S 09/09/2020 based upon AC, BPD, Femur, HC 19 w + 0 d 02/03/2021 Assigned dating Dating performed on 09/09, based on the LMP 19 w + 0 d 02/03/2021 GENERAL EVALUATION Cardiac activity present. FHR 159 bpm. movements present. Presentation Variable. Placenta No Previa, > 2 cm from internal os, Anterior. Umbilical cord 3 vessel cord. Amniotic fluid Amount of AF: normal. MVP 7.4 cm. BIOMETRY Main Biometry: BPD 41.8 mm 18w 5d Hadlock OFD 57.6 mm 18w 6d Nicolaides HC 159.2 mm 18w 5d Hadlock Cerebellum tr 19.2 mm 18w 4d Nicolaides AC 141.1 mm 19w 3d 62% Hadlock Femur 29.4 mm 19w 0d Hadlock Humerus 29.2 mm 19w 4d Harley Weight Calculation: EFW 280 g 58% Hadlock EFW (lb,oz) 0 lb 10 oz EFW by Hadlock ([id number]) Head / Face / Neck Biometry: Rag Grader 7.6 mm CM 4.8 mm Nasal bone 7.0 mm Nuchal fold 3.2 mm ANATOMY The following structures appear normal: Head / Neck Cranium. Head size. Head sha pe. Lateral ventricles. Choroid plexus. Midline falx. Cavum septi pellucidi. Cerebellum. Cisterna magna. Parenchyma. Thalami. Vermis. Neck. Nuchal fold. Face Lips. Profile. Nose. Maxilla. Sarah ble. Orbits. Lens. Heart / Thorax 4-chamber view. RVOT view . LVOT view. Situs. Aortic arch view. Bicaval view. Ductal arch view. Superior vena cava. Inferior vena cava. 3-vessel view. 8-zkrfdd-mcxzkos view. Cardiac po sition. Cardiac size. Cardiac rhythm. Right lung. Left lung. Diaphragm. Abdomen Abdominal wall. Cord insertion. Stomach. Kidneys. Bladder. Liver. Bowel. Genitals. Spine Cervical spine. Thoracic spine. Dipika mbar spine. Sacral spine. Extremities / Skeleton Right arm. Right hand. Left arm. Left hand. Right leg. Right foot. Left leg. Left foot. MATERNAL STRUCTURES Cervix Visualized Appearance: Appears Closed Approach - Transabdominal: Cervical georgi gth 38.6 mm Right Ovary Visualized Left Ovary Visualized RECOMMENDATION Thank-you for referring your patient for a comprehensive ultrasound. I discussed the findings on today's ultr asound with Kim and her mother. I reviewed the limitations of ultrasound both in detecting aneuploidy and structural abnormalities. I recommended serial ultrasounds every 4 -6 weeks to assess growth starting at 28 weeks due to epilepsy and metoprolol use. Return to primary provider for continued care. anomalies may be present but not detected IMPRESSION 1) De La Rosa intrauterine at 1 9w 0d gestational age. 2) None of the anomalies commonly detect ed by ultrasound were evident in the detailed anatomic survey as described above. 3) Growth parameters and estimated weight were consistent with established dates. 4) The amniotic fluid volume appeared no rmal. 5) On transabdominal imaging the cervix appears long and closed. Saurabh Nunez MD IMG [facility] ORDERABLES documented in this encounter Visit Diagnoses Diagnosis related condition, antepartum documented in this encounter Additional Health Concerns Assessment Noted Time PHQ-9 Depression Total Score: 9 06/25/2020 7:04 AM AUTOMOTIVE PARTS COORDINATOR documented as of this encounter Care Teams Tooling Mechanic Relationship Specialty Start Date End Date Marija Edgar APRN PCP - General Nurse Practitioner 04/30/20 PREFORMS LAMINATOR [address] [place], [place] [phone] Lita Oseguera Personal Advocate & 02/28/20 Liaison (PAL) Chanelle Mccann Assigned OBGYN Provider 05/02/20 05/09/21 [place] [address] [address] [address] [place], [place] [address] Kyara De La Fuente RN Specialty Care Neurology 06/04/20 03/05/21 Coordinator Marija Edgar APRN Assigned PCP 06/08/20 PREFORMS LAMINATOR [address] [place], [place] [phone] Mynor Broussard MD Assigned Surgical 06/01/20 11/28/21 [address] [facility] Provider 500 [place], [place] [address] Keisha Dotson, Assigned Neuroscience 06/04/20 MD Provider [address] [place], [place] [address] Stacey Briones LSW Lead Rn Cardiovascular Primary Care - CC 08/11/20 12/30/20 Lesley Moody, Community Health Worker 08/11/20 10/01/20 [place] Mary Mejia Financial Resource 09/02/20 303/31 Worker documented as of this encounter
--- OUTSIDE RECORDS SUMMARY | 2022-04-28 01:18 | XMS_ITS | Encounter Summary ---
:2000 Author Organization [place] Address [address] [place] [address] Care Team Providers Name Role Phone Lita Oseguera Unavailable Unavailable Marija Edgar APRN [place] Primary Care Provider [phone] Chanelle Mccann APRN CNM Unavailable + Kyara De L aFuente RN Unavailable Marija Edgar APRN [place] Unavailable Mynor Broussard MD Unavailable Keisha Dotson MD Unavailable Stacey Briones PROVIDER ENROLLMENT SPECIALIST Unavailable Lesley Moody MA Unavailable Mary Mejia Unavailable Unavailable Encounter Details Date Type Department Care Team Description 09/05/2020 Travel Social History Tobacco Use Types Packs/Day [...] How often do you attend taoism or mu-ism services? Never 09/22/2021 Do you [...] been in contact with No / Unsure 09/05/2020 2:50 PM INVENTORY REPRESENTATIVE someone who was confirmed or suspected to have Coronavirus / COVID-19? documented as of this encounter Plan of Treatment Upcoming Encounters Date Type Specialty Care Team Description 04/28/2022 Office Visit Family Practice Anthony Doe PA-C [address] [place], [place] [phone] (Wo rk) 05/03/2022 Office Visit Dermatology Neil Kent M D [address] [place] [phone] (Wo rk) 05/05/2022 Office Visit Optometry Yeny David, OD [address] [facility] [address] [place] [phone] (Wo rk) 05/11/2022 Virtual Visit Pharm D Diana Desir , [facility] [address] [place], [place] [address] (Wo rk) 05/14/2022 Office Visit Cardiology Livan Sharif MD [address], [facility] [address] [place], [place] [address] (Wo rk) 05/31/2022 Office Visit Family Practice Valery Veronica , PAUcheC [address] [place], [place] [address] (Wo rk) documented as of this encounter Visit Diagnoses Not on filedocumented in this encounter Additional Health Concerns Assessment Noted Time PHQ-9 Depression Total Score: 9 06/25/2020 7:04 AM INVENTORY REPRESENTATIVE documented as of this encounter Care Teams Supervisor Mechanic Boilermaking Relationship Specialty Start Date End Date Marija Edgar APRN PCP - General Nurse Practitioner 04/30/20 [place] [address] [place] [address] Lita Oseguera Personal Advocate & 02/28/20 Liaison (PAL) Chanelle Mccann Assigned OBGYN Provider 05/02/20 05/09/21 [place] [address] [address] [facility] 200 [place], [place] [address] Kyara De La Fuente, VJ Specialty Care Neurology 06/04/20 03/05/21 Coordinator Marija Edgar APRN Assigned PCP 06/08/20 [place] [address] [place], [place] [phone] Mynor Broussard MD Assigned Surgical 06/01/20 11/28/21 [address] [facility] Provider 500 [place] [address] Keisha Dotson, Assigned Neuroscience 06/04/20 MD Provider [address] [place] [address] Stacey Briones, PROVIDER ENROLLMENT SPECIALIST Lead Cardiology Physician Assistant Primary Care - CC 08/11/20 12/30/20 Lesley Moody, Community Health Worker 08/11/20 10/01/20 [place] Mary Mejia Financial Resource 09/02/2009/09 Worker documented as of this encounter
--- OUTSIDE RECORDS SUMMARY | 2022-04-28 01:18 | XMS_ITS | Encounter Summary ---
:2000 Author Organization [facility] Address [address] [place] [address]. [place] [address] Care Team Providers Name Role Phone Lita Oseguera Unavailable Unavailable Marija Edgar APRN POWER DISTRIBUTOR Primary Care Provider [phone] Chanelle Mccann APRN CNM Unavailable + Kyara De La Fuente RN Unavailable Marija Edgar APRN POWER DISTRIBUTOR Unavailable Mynor Broussard MD Unavailable Keisha Dotson MD Unavailable Stacey Briones MAIL TELLER Unavailable Lesley Moody MA Unavailable Mary Mejia Unavailable Unavailable Lita Oseguera Unavailable Unavailable Reason for Visit Reason Onset Date Comments No Show 09/10/2020 Encounter Details Date Type Department Care Team Description 09/10/2020 Office Visit [facility] Marija Edgar NO SHO W (Primary Dx) [facility] [place] GENERAL TECHNICIAN [address] [id number] [phone] Social History Tobacco Use Types Packs/Day Years [...] How often do you attend adventist or islam services? Never 09/22/2021 Do you [...] with No / Unsure 09/09/2020 10:09 AM MARKETING TRAINEE someone who was confirmed or suspected to have Coronavirus / COVID-19? documented as of this encounter Progress Notes Marija Edgar APRN CNP - 09/10/2020 8:00 AM CST This patient was a no show for this scheduled appointment. ETING TRAINEE documented in this encounter Plan of Treatment Upcoming Encounters Date Type Specialty Care Team Description 04/28/2022 Office Visit Family Practice Anthony Doe, PA-C [address] [place] [address] (Wo rk) 05/03/2022 Office Visit Dermatology Neil Kent M D [address] [place], [place] [phone] (Wo rk) 05/05/2022 Office Visit Optometry Yeny David, OD [address] [facility] [address] [address] [place] [id number] (Wo rk) 05/11/2022 Virtual Visit Pharm D Diana Desir , [facility] [address] [place], [place] [address] (Wo rk) 05/14/2022 Office Visit Cardiology Livan Sharif MD [address] , [facility] [address] [place], [place] [id number] (Wo rk) 05/31/2022 Office Visit Family Practice Valery Veronica PA-C [address] [place] [address] (Wo rk) documented as of this encounter Visit Diagnoses Diagnosis NO SHOW - Primary documented in this encounter Additional Health Concerns Assessment Noted Time PHQ-9 Depression Total Score: 9 06/25/2020 7:04 AM MARKETING TRAINEE documented as of this encounter Care Teams Chief Pilot Relationship Specialty Start Date End Date Marija Edgar APRN PCP - General Nurse Practitioner 04/30/20 POWER DISTRIBUTOR [address] [place] [address] Lita Oseguera Personal Advocate & 02/28/20 Liaison (PAL) Chanelle Mccann Assigned OBGYN Provider 05/02/20 05/09/21 ARLENE Mooney CNM [address] [place], [address] [place], [place] [address] Kyara De La Fuente, RN Specialty Care Neurology 06/04/20 03/05/21 Coordinator Marija Edgar APRN Assigned PCP 06/08/20 POWER DISTRIBUTOR [address] [place] [address] Mynor Broussard MD Assigned Surgical 06/01/20 11/28/21 [address] [facility] Provider [address] [place] [address] Keisha Dotson, Assigned Neuroscience 06/04/20 MD Provider [address] [place] [address] Stacey Briones, MAIL TELLER Lead Director Of Broadcast Primary Care - CC 08/11/20 12/30/20 Lesley Moody, Community Health Worker 08/11/20 10/01/20 MA Mary Mejia Financial Resource 09/02/2009/09 Worker Lita Oseguera Personal Advocate & Family Medicine 09/10/20 09/21/20 Liaison (PAL) documented as of this encounter
--- OUTSIDE RECORDS SUMMARY | 2022-04-28 01:18 | XMS_ITS | Encounter Summary ---
:2000 Author Organization [facility] Address [address] [place] [address] Care Team Providers Name Role Phone Lita Oseguera Unavailable Unavailable Marija Edgar APRN CLINICAL ASSISTANT PROFESSOR Primary Care Provider [phone] Chanelle Mccann APRN CNM Unavailable + Kyara De La Fuente RN Unavailable Marija Edgar APRN CLINICAL ASSISTANT PROFESSOR Unavailable Mynor Broussard MD Unavailable Keisha Dotson MD Unavailable Stacey Briones BILLET SHEARER Unavailable Lesley Moody MA Unavailable Mary Mejia Unavailable Unavailable Reason for Visit Reason Comments Flank Pain Abdominal Pain 21 weeks Encounter Details Date Type Department Care Team Description 09/24/2020 Emergency [facility] Apolinar Wrayt pain, unspecified type; [facility] Emergency Dep riana Robertson MD Abdominal pain, generalized [address] [facility] [place], [place] [address] [address] [phone] [address] [place], [place] [address] (Wo rk) Social History Tobacco Use Types [...] How often do you attend sikh or adventist services? Never 09/22/2021 Do you [...] been in contact with No / Unsure 09/24/2020 6:37 AM CDT someone who was confirmed or suspected to have Coronavirus / COVID-19? documented as of this encounter Last Filed Vital Signs Vital Sign Reading Time Taken Comments Blood Pressure 110/62 09/24/2020 7:58 AM CDT Pulse 78 09/24/2020 7:58 AM CDT Temperature 37.1 ??C (98.7 ??F) 09/24/2020 6:44 AM CDT Respiratory Rate 16 09/24/2020 11:26 AM CDT Oxygen Saturation 98% 09/24/2020 7:58 AM CDT Inhaled Oxygen Concentration - - Weight 88.9 kg (196 lb) 09/24/2020 10:01 AM CDT Height 167.6 cm (5' 6) 09/24/2020 10:01 AM CDT Body Mass Index 31.64 09/24/2020 10:01 AM CDT documented in this encounter Discharge Instructions Discharge InstructionsApolinar Wray MD - 09/24/2020 10:34 AM CDT Please follow-up with your slitting and shipping supervisor in regards to your ongoing chest pain. Please return to the emergency department with any new or worsening chest pain, shortness of breath, fever, cough or any other new concerning symptoms. Additionally please follow-up with your primary PAINTER AND DECORATOR APPRENTICE. Please return to the emergency department with worsening abdominal pain, blood in your stool, vaginal bleeding, fevers or vomiting. You may use Tylenol to treat your abdominal pain and chest pain. Please remember to stay well-hydrated. AttachmentsThe following attachments cannot be sent through Care Everywhere. Abdominal Pain, Early (Burundian)Chest Pain, Uncertain Cause (Burundian) documented in this encounter Medications at Time [...] documented as of this encounter ED Notes Rain Aguilera RN - 09/24/2020 7:17 AM CDT Patient in lobby awaiting ED bed. Labor and delivery was notified of patients arrival in ED initially and will start in the ED. Now patient found crying on floor of lobby holding her lower abdomen. States she has abdominal pain that is worse and caused her to lay on the floor. L&D called again to come to ED to monitor patient, will move her to a monitor room. Jana David RN - 09/24/2020 6:43 AM CDT Pt to ER with c/o mult prob, pt has right flank pain with known kidney stones, also left sided CP Ptis also [address] wants her to be seen in the ER Apolinar Wray MD - 09/24/2020 6:37 AM CDT History Chief Complaint: Flank Pain, Abdominal Pain, and 21 weeks The history is provided by the patient. Kim Johnson is a 20 year old female , 21 weeks with history of chronic kidney disease and bilateral ureter stones who presents with Flank Pain and Abdominal Pain. She found out she was when she went in to have a kidney stone removed, therefore the procedure was not performed. She notes she is having a difficult . She mentions two episodes where she has fallen due to severe pain, but she is unsure of the cause. She visited her OBGYN yesterday and had blood drawn as well as an echocardiogram. She mentions intermittent chest pain and palpitations with sharp pain radiating down her arm, and difficulty breathing (baseline). She did not use pain medication for the symptoms, and she states typically she does not take medications for pain. States dark urine and normal vaginal discharge. Denies nausea, cough, cold, chills, vaginal bleeding, hematuria, headache, and visual changes. She has a past medial history of heart problems and takes Metoprolol for SVT. Review of Systems Constitutional: Negative for chills. Eyes: Negative for visual disturbance. Respiratory: Negative for cough. Cardiovascular: Positive for chest pain and palpitations. Gastrointestinal: Positive for abdominal pain. Negative for nausea. Genitourinary: Positive for flank pain. Negative for hematuria and vaginal bleeding. Musculoskeletal: Arm pain. Neurological: Negative for headaches. All other systems reviewed and are negative. Allergies: No Known Allergies Medications: folic acid lamotrigine levetiracetam metoprolol succinate ER naproxen omeprazole sertraline ferrous sulfate biotin-silicon [id number] Nexplanon Mirena Past Medical History: Pulmonary regurgitation Tricuspid Valve Regurgitation Anxiety Chronic kidney disease Eczema Seizure Gastroesophageal reflux disease Asthma Right ureteral stone Left ureteral stone Psoriasis Depression Past Surgical History: Genitourinary surgery Family History: Sister: Brain tumor Social History: Presents alone. PCP: Marija Edgar Physical Exam Patient Vitals for the past 24 hrs: BP Temp Temp src Pulse Resp SpO2 Height Weight 09/24/20 1126 -- -- -- -- 16 -- -- -- 09/24/20 1001 -- -- -- -- -- -- 1.676 m (5' 6) 88.9 kg (196 lb) 09/24/20 0758 110/62 -- -- 78 16 98 % -- -- 09/24/20 0644 134/66 98.7 ??F (37.1 ??C) Temporal 79 18 99 % -- -- Physical Exam General: Patient is awake, alert and interactive when I enter the room Head: The scalp, face, and head appear normal Eyes: The pupils are equal, round, and reactive to light. Conjunctivae and sclerae are normal Neck: Normal range of motion. CV: Regular rate and rhythm. Intact peripheral pulses. Resp: Lungs are clear without wheezes or rales. No respiratory distress. GI: Abdomen is soft, no rigidity, guarding, or rebound. No distension. No tenderness to palpation inany quadrant. MS: Normal tone. Joints grossly normal without effusions. No asymmetric leg swelling, calf or thigh tenderness. Skin: No rash or lesions noted. Normal capillary refill noted Neuro: Speech is normal and fluent. Face is symmetric. Moving all extremities. Psych: Normal affect. Appropriate interactions. Emergency Department Course ECG#1: ECG taken at 0649 Sinus rhythm Normal ECG No significant change when compared to EKG dated 08/29/20. Rate 68 bpm. MI interval 136 ms. QRS duration 88 ms. QT/QTc 382/406 ms. P-R-T axes 49 61 35. ECG #2: ECG taken at 1051, ECG read at 1057 Normal sinus rhythm with sinus arrhythmia Normal ECG No significant change when compared to EKG dated 09/24/20. Rate 92 bpm. MI interval 134 ms. QRS duration 86 ms. QT/QTc 364/450 ms. P-R-T axes 33 42 19. Imaging: US Renal Complete IMPRESSION: No hydronephrosis or shadowing calculi in either kidney. US OB >14 Weeks Follow Up IMPRESSION: 1. There is a single living intrauterine fetus in cephalic presentation. 2. Ovaries are visualized and appear normal. No adnexal masses. Laboratory: CBC: WBC 9.9, HGB 10.5, PLT 219 CMP: BUN 6 (L), Creatinine 0.44 (L) o/w WNL Symptomatic Influenza A/B & SARS-CoV2 (COVID19) Virus PCR Multiplex Negative UA with microscopic: protein Albumin 10, RBC/HPF 3 (H), squamous epithelial 2 (H), mucosus present, Calcium oxalate few o/w WNL Protein random urine with Creat Ratio: protein random 0.12, Protein total urine 0.06 Creatinine urine calculation only: 216 Troponin: (Collected 729) <0.015 HCG quantitative : 14,630 (H) Hepatic panel: Bilirubin 0.1 (L), Albumin 2.8 (L) o/w WNL Emergency Department Course: Reviewed: I reviewed nursing notes, vitals, past medical history and care everywhere Assessments: 0727 I obtained history and examined the patient as noted above. 1019 I rechecked the patient and explained findings. She is feeling better. 1113 Reevaluated and spoke about discharge. Consults: 1023 : I spoke with Dr. Reyes of the OBGYN service from [facility] regarding patient's presentation, findings, and plan of care. Interventions: 0800 NS, 1 L, IV Disposition: The patient was discharged to home. Impression & Plan Medical Decision Making: Patient is a 20-year-old female who is approximately 21 weeks with past medical history of nephrolithiasis, SVT, tricuspid regurgitation and chronic kidney disease who presents emergencydepartment today with right-sided flank pain, chest pain and generalized abdominal pain. Upon initial evaluation she is hemodynamically stable with normal vital signs. She is afebrile. She does not appear in acute distress and is not having any respiratory difficulty. On physical exam she has a benignabdomen without any significant guarding, rebound or tenderness. She does not have any CVA tenderness. I reviewed the patient's chart and in May she was scheduled to have a lithotripsy however wasfound to be at that time so this was deferred. She is unsure whether she ever passed the stone. This may be responsible for her right-sided flank pain. However at this time there is no evidence of infection in her urine, hydronephrosis on renal ultrasound or evidence of kidney failure to necessitate further intervention for this at this time. I also considered alternative diagnoses for her right-sided flank pain including ovarian torsion, ectopic , miscarriage etc. Pelvic ultrasound was obtained to rule out further pelvic pathology. Thankfully this was negative for ovarian torsion, ectopic , abruption, miscarriage or free fluid in the pelvis. Based on her work-up here today there is no evidence of preeclampsia. Covid and influenza are also negative. I discussed the casewith Dr. Reyes of PAINTER AND DECORATOR APPRENTICE and at this point we agree that the patient is safe for discharge home. Prior to her discharge the patient had repeat episode of short electrical stabbing chest pain that lasted approximately 30 seconds. EKG was repeated in the patient services assistant was reviewed. There is no evidence of SVT or significant dysrhythmia. EKG does not show any signs of ischemia nor dysrhythmia as well.At this point it is unclear what is causing this patient's chest pain however given the quality, duration and chronicity of this pain it is unlikely to be significantly sinister in nature. I do not believe that she requires a chest x-ray today as her lungs are clear and there is no significant concernfor pneumonia. Additionally I have low concern for PE given the nature of her pain, lack of tachycardia and no significant pain or swelling in her lower extremities. At this point I feel it is safe to have discharged home to follow-up closely with both her cardiology team and PAINTER AND DECORATOR APPRENTICE team. Covid-19 Kim Johnson was evaluated during a global COVID-19 pandemic, which necessitated consideration that the patient might be at risk for infection with the SARS-CoV-2 virus that causes COVID-19. Applicable protocols for evaluation were followed during the patient's care. COVID-19 was considered as part of the patient's evaluation. The plan for testing is: a test was obtained during this visit. Diagnosis: ICD-10-CM 1. Chest pain, unspecified type R07.9 2. Abdominal pain, generalized R10.84 Scribe Disclosure: Rebecca Denis, am serving as a scribe at 7:39 AM on 09/24/2020 to document services personally performed by Apolinar Wray MD based on my observations and the provider's statements to me. Apolinar Wray MD 09/24/20 1441 documented in this encounter Miscellaneous Notes Plan of Care - Rani, Audrey Miramontes RN - 09/24/2020 8:55 AM CDT Pt c/o lower abd /uterine intermittent Aching. Abd palpates soft, not tender. Denies any leaking of fluid or vaginal bleeding. Pt states she has not felt movement yet with this . [place] placed and no contractions seen on monitor or reported by pt. FHR done with doppler WDL. Has scheduled appt for visits. Pt will follow up in clinic within the next week, sooner if new or persistent concerns. Plan of Care - Elizabeth Rivera RN - 09/24/2020 7:[address] Hurst notified of pt arrival to ED with complaints of chest and abdominal pain. Orders to have ptremain in ED and to send L&D RN to perform doppler FHTs and 15 mins of toco monitoring in the ED. If contractions noted or further OB complaints are present MD would like pt to be worked up in ED and discharged from ED and then sent to OB floor if necessary. documented in this encounter Plan of Treatment Upcoming Encounters Date Type Specialty Care Team Description 04/28/2022 Office Visit Family Practice Anthony Doe PA-C [address] [place] [address] (Wo rk) 05/03/2022 Office Visit Dermatology Neil Kent M D [address] [place], [place] [phone] (Wo rk) 05/05/2022 Office Visit Optometry Yeny David, OD [address] [place] [id number] (Wo rk) 05/11/2022 Virtual Visit Pharm D Diana Desir , [facility] [address] [place] [address] (Wo rk) 05/14/2022 Office Visit Cardiology Livan Sharif MD [address] [facility] [address] [place], [place] [phone] (Wo rk) 05/31/2022 Office Visit Family Practice Valery Veronica PA-C [address] [place], [place] [phone] (Wo rk) documented as of this encounter Procedures Procedure Name Priority Date/Time Associated Comments Diagnosis EKG 12-LEAD, TRACING STAT 09/24/2020 10:51 Res ults for this ONLY AM CDT procedure are i n the results section. US RENAL COMPLETE STAT 09/24/2020 10:03 Result s for this AM CDT procedure are i n the results section. US OB FOLLOW UP >14 STAT 09/24/2020 10:01 Resu lts for this WEEKS AM CDT procedure are i n the results section. INFLUENZA A/B & STAT 09/24/2020 8:10 AM Result s for this SARS-COV2 PCR CDT procedure are in MULTIPLEX the results section. ROUTINE UA WITH STAT 09/24/2020 7:40 AM Result s for this MICROSCOPIC CDT procedure are i n the results section. PROTEIN RANDOM URINE STAT 09/24/2020 7:40 AM R esults for this CDT procedure are i n the results section. CREATININE URINE Routine 09/24/2020 7:40 AM Resul ts for this CALCULATION ONLY (LAB CDT proced ure are in ONLY) the results section. CBC WITH PLATELETS & STAT 09/24/2020 7:30 AM R esults for this DIFFERENTIAL CDT procedure are i n the results section. TROPONIN I STAT 09/24/2020 7:30 AM Results f or this CDT procedure are i n the results section. HEPATIC FUNCTION Routine 09/24/2020 7:30 AM Resul ts for this PANEL CDT procedure are i n the results section. HCG QUANTITATIVE STAT 09/24/2020 7:30 AM Resul ts for this CDT procedure are i n the results section. BASIC METABOLIC PANEL STAT 09/24/2020 7:30 AM Results for this CDT procedure are i n the results section. EKG 12-LEAD, TRACING STAT 09/24/2020 6:49 AM R esults for this ONLY CDT procedure are i n the results section. documented in this encounter Results EKG 12-lead, tracing only (09/24/2020 10:51 AM CDT) [facility] gist Method Time Signature Interpretation ECG Click View RADIOLOGY Image link RESULTS to view waveform and result Specimen (Source) Anatomical Collection Method Collection Time Re ceived Time Location / / Volume Laterality 09/24/2020 10:51 AM CDT Apolinar Wray MD ECG ORDERABLES Performing Organization Address City/State/ZIP Code Phon e Number RADIOLOGY RESULTS US Renal Complete (09/24/2020 10:03 AM CDT) Anatomical Region Laterality Modality Abdomen/Pelvis Ultrasound Specimen (Source) Anatomical Location Collection Method / Collectio n Time Received Time / Laterality Volume Impressions 09/24/2020 11:07 AM CDT IMPRESSION: No hydronephrosis or shadowing calculi in either kidney. LETTY THOMPSON MD Narrative 09/24/2020 11:07 AM CDT ULTRASOUND RENAL COMPLETE September 24, 2020 10:03 AM HISTORY: History of kidney stone, right- sided abdominal pain. COMPARISON: CT abdomen/pelvis on . FINDINGS: Right Kidney: No hydronephrosis or shado wing calculi. Left Kidney: No hydronephrosis or shadow ing calculi. Bladder: Partially distended and unremar kable. Procedure Note Letty Thompson MD - 09/24/2020Forma tting of this note might be different from the original. ULTRASOUND RENAL COMPLETE September 24, 2020 10:03 AM HISTORY: History of kidney stone, right- sided abdominal pain. COMPARISON: CT abdomen/pelvis on . FINDINGS: Right Kidney: No hydronephrosis or shado wing calculi. Left Kidney: No hydronephrosis or shadow ing calculi. Bladder: Partially distended and unremar kable. IMPRESSION: No hydronephrosis or shadowi ng calculi in either kidney. LETTY THOMPSON MD Apolinar Wray MD IMG US ORDERABLES US OB >14 Weeks Follow Up (09/24/2020 10:01 AM CDT) Anatomical Region Laterality Modality Abdomen/Pelvis Ultrasound Specimen (Source) Anatomical Location Collection Method / Collectio n Time Received Time / Laterality Volume Impressions 09/24/2020 11:07 AM CDT IMPRESSION: 1. There is a single living intrauterine fetus in cephalic presentation. 2. Ovaries are visualized and appear nor mal. No adnexal masses. LETTY THOMPSON MD Narrative 09/24/2020 11:07 AM CDT ULTRASOUND OBSTETRIC >14 WEEKS FOLLOW UP September 24, 2020 at 1001 hours HISTORY: Lower abdominal pain. FINDINGS: anatomy survey: Limited survey dem onstrates normal four-chamber heart, stomach, bladder and kidneys. presentation: Breech. Placental location: Anterior, no previa. Number of cord vessels: 3 heart motion: Present at 146 beats per minute. motion: Present Amniotic fluid volume: Normal. Cervix: Measures 4 cm in length. Ovaries are visualized and demonstrate n ormal follicular structure and color-flow. Procedure Note Letty Thompson MD - 09/24/2020Forma tting of this note might be different from the original. ULTRASOUND OBSTETRIC >14 WEEKS FOLLOW UP September 24, 2020 at 1001 hours HISTORY: Lower abdominal pain. FINDINGS: anatomy survey: Limited survey dem onstrates normal four-chamber heart, stomach, bladder and kidneys. presentation: Breech. Placental location: Anterior, no previa. Number of cord vessels: 3 heart motion: Present at 146 beats per minute. motion: Present Amniotic fluid volume: Normal. Cervix: Measures 4 cm in length. Ovaries are visualized and demonstrate n ormal follicular structure and color-flow. IMPRESSION: 1. There is a single living intrauterine fetus in cephalic presentation. 2. Ovaries are visualized and appear nor mal. No adnexal masses. LETTY THOMPSON MD Apolinar Wray MD [facility] US ORDERABLES Symptomatic Influenza A/B & SARS-CoV2 (COVID-19) Virus PCR Multiplex (09/24/2020 8:10 AM CDT) [facility] Method Time Signature Flu A/B & Nasopharyngeal 09/24/2020 [place] SARS-COV-2 7:40 AM CDT [facility] PCR Source HOSPITAL SARS-CoV-2 NEGATIVE 09/24/2020 [place] PCR Result 9:24 AM T [facility] Comment: SARS-CoV2 (COVID-19) RNA not de tected, presumed negative. Influenza A PCR Negative NEG^Negative 09/24/2020 9:24 AM CD [facility] Comment: Influenza A RNA not detected, p resumed negative. Influenza B PCR Negative NEG^Negative 09/24/2020 9:24 AM CD [facility] Comment: Influenza B RNA not detected, p resumed negative. Respiratory Syncytial (Note) 09/24/2020 9:24 AM CDT [facility] Virus PCR [facility] Comment: Test not performed with this mt thodology. Flu A/B & SARS-CoV-2 PCR (Note) 09/24/2020 9:24 AM CDT [facility] Comment: Testing was performed using the candy SA RS-CoV-2 & Influenza A/B Assay on the candy [employer] System. This test should be ordered for the dete ction of SARS-CoV-2 and influenza viruses in individuals who meet clinical and/or epidemiological criteria. Test performance is unknown in asymptomatic patients. This test is for in vitro diagnostic use under the FDA EUA for laboratories certified under CLIA to perform moderate and/or high complexity testing. This test has not been FDA cleared or approve d. A negative result does not rule out the presence of PCR inhibitors in the specimen or target RNA in concentration below the limit of detection for the assay. If only one viral target is positive but coinfection with multiple targets is suspected, the sample should be re-teste d with another FDA cleared, approved or authorized test, if coinfection would change clinical management. [facility] are certi fied under the Clinical Laboratory Improvement Amendments of 1988 (CLIA-88) as qualified to perform moderate and/or high complexity laboratory testin g. Specimen (Source) Anatomical Collection Method Collection Time Re ceived Time Location / / Volume Laterality Specimen from 09/24/2020 8:10 09/24/2020 nasopharyngeal AM CDT 8:43 AM CDT structure (specimen) Apolinar Wray MD LAB - MICRO GENERAL ORD ERABLES Performing Organization Address City/State/ZIP Code Phon e Number [facility] [address] [place], [place] [address] [facility] [address] [place], [place] [address] [phone] Creatinine urine calculation only (09/24/2020 7:40 AM CDT) athologist Signature Creatinine 216 mg/dL 09/24/2020 [place] Urine 9:29 AM CDT [facility] Specimen Anatomical Collection Method Collection Time Receive d Time (Source) Location / / Volume Laterality 09/24/2020 7:40 AM 8:44 CDT AM CDT Apolinar Wray MD LAB - URINE ORDERABLES Performing Organization Address City/[facility]/ZIP [facility] Phon e Number M [facility] [address] [place], [place] [address] [facility] [address] [place], [place] [address], [facility] [phone] Protein random urine with Creat Ratio (09/24/2020 7:40 AM CDT) athologist Signature Protein Random 0.12 g/L 09/24/2020 [place] Urine 9:22 AM T [facility] Protein Total 0.06 0 - 0.2 09/24/2020 [place] Urine g/gr g/g Cr 9:29 AM CDT [facility] Specimen Anatomical Collection Method Collection Time Receive d Time (Source) Location / / Volume Laterality Urine specimen 09/24/2020 7:40 AM 021 8:44 (specimen) CDT AM CDT Apolinar Wray MD LAB - URINE ORDERABLES Performing Organization Address City/[facility]/ZIP [facility] Phon e Number M [facility] [address] [place], [place] [address] [facility] [address] [place] [address], [facility] [address] [place], [place] [address], [facility] [phone] (ABNORMAL) Routine UA with microscopic (09/24/2020 7:40 AM CDT) [facility] Method Time Signature Color Urine Yellow 09/24/2020 [place] 8:20 AM [facility] Appearance Urine Clear 09/24/2020 [facility] 8:20 AM [facility] Glucose Urine Negative NEG^Negat 09/24/2020 [facility] shyam mg/dL 8:20 AM [facility] Bilirubin Urine Negative NEG^Negat 09/24/2020 [facility] shyam 8:20 AM [facility] Ketones Urine Negative NEG^Negat 09/24/2020 [facility] shyam mg/dL 8:20 AM [facility] Specific [place] 1.027 1.003 - 09/24/2020 [facility] Urine 1.035 8:20 AM [facility] Blood Urine Negative NEG^Negat 09/24/2020 [facility] shyam 8:20 AM [facility] pH Urine 5.5 5.0 - 7.0 09/24/2020 [place] pH 8:20 AM [facility] Protein Albumin 10 (A) NEG^Negat 09/24/2020 [facility] Urine shyam mg/dL 8:20 AM [facility] Urobilinogen Normal 0.0 - 2.0 09/24/2020 [facility] mg/dL mg/dL 8:20 AM [facility] Nitrite Urine Negative NEG^Negat 09/24/2020 [facility] shyam 8:20 AM [facility] Leukocyte Negative NEG^Negat 09/24/2020 [facility] Esterase Urine shyam 8:20 AM [facility] Source Midstream 09/24/2020 [facility] Urine 8:00 AM [facility] WBC Urine 2 0 - 5 09/24/2020 [facility] /HPF 8:20 AM [facility] RBC Urine 3 (H) 0 - 2 09/24/2020 [facility] /HPF 8:20 AM [facility] Squamous 2 (H) 0 - 1 09/24/2020 [facility] Epithelial /HPF /HPF 8:20 AM [facility] Mucous Urine Present (A) NEG^Negat 09/24/2020 [facility] shyam /LPF 8:20 AM [facility] Calcium Oxalate Few (A) NEG^Negat 09/24/2020 [facility] shyam /HPF 8:20 AM [facility] Specimen (Source) Anatomical Collection Method Collection Time Re ceived Time Location / / Volume Laterality Examination of 09/24/2020 7:40 09/24/2020 8:00 midstream urine AM CDT AM CDT specimen (procedure) Apolinar Wray MD LAB - URINE ORDERABLES Performing Organization Address City/State/ZIP Code Phon e Number M [facility] [address], [place] [address] [facility] [address] [place], [place] [address] [facility] [phone] (ABNORMAL) Hepatic panel (09/24/2020 7:30 AM CDT) Analysis Performed At Path logist Time Signature Bilirubin Direct <0.1 0.0 - 0.2 09/24/2020 [place] mg/dL 8:03 AM [facility] Bilirubin Total 0.1 (L) 0.2 - 1.3 09/24/2020 [place] mg/dL 8:03 AM [facility] Albumin 2.8 (L) 3.4 - 5.0 09/24/2020 [place] g/dL 8:03 AM [facility] Protein Total 6.8 6.8 - 8.8 09/24/2020 [place] g/dL 8:03 AM [facility] Alkaline 58 40 - 150 09/24/2020 [place] Phosphatase U/L 8:03 AM [facility] ALT 21 0 - 50 U/L 09/24/2020 [place] 8:03 AM [facility] AST 13 0 - 45 U/L 09/24/2020 [place] 8:03 AM [facility] Specimen Anatomical Collection Method Collection Time Receive d Time (Source) Location / / Volume Laterality 09/24/2020 7:30 AM 7:41 CDT AM CDT Fabián Chen MD LAB - BLOOD ORDERABLES Performing Organization Address City/State/ZIP Code Phon e Number M [facility] [address] [address] [phone] [facility] [address] [address], [place] [phone] (ABNORMAL) HCG QUANTitative (blood) (09/24/2020 7:30 AM CDT) Patholo gist Method Time Signature HCG Quantitative 14,630 0 - 5 09/24/2020 [place] Serum (H) IU/L 8:28 AM [facility] Comment: Specimen run with a dilution Specimen Anatomical Collection Method Collection Time Receive d Time (Source) Location / / Volume Laterality Blood specimen 09/24/2020 7:30 AM 021 7:41 (specimen) CDT AM CDT Apolinar Wray MD LAB - BLOOD ORDERABLES Performing Organization Address City/[facility] Phon e Number M [facility] [address], [place] [address] [facility] [address] [place], [place] [address], [facility] [phone] Troponin I (09/24/2020 7:30 AM CDT) P athologist Signature Troponin I ES <0.015 0.000 - 09/24/2020 [place] 0.045 ug/L 8:06 AM [facility] Comment: The 99th percentile for upper reference range is 0.045 ug/L. ??Troponin values in the range of 0.045 - 0.120 ug/L may b e associated with risks of adverse clinical events. Specimen Anatomical Collection Method Collection Time Receive d Time (Source) Location / / Volume Laterality Blood specimen 09/24/2020 7:30 AM 021 7:41 (specimen) CDT AM CDT Apolinar Wray MD LAB - BLOOD ORDERABLES Performing Organization Address City/[facility] Phon e Number M [facility] [address], [place] [address] [facility] [address] [place], [place] [address], [facility] [phone] (ABNORMAL) Basic metabolic panel (09/24/2020 7:30 AM CDT) Analysis Performed At Patho logist Time Signature Sodium 136 133 - 144 09/24/2020 [place] mmol/L 7:55 AM [facility] Potassium 3.6 3.4 - 5.3 09/24/2020 [facility] mmol/L 7:55 AM [facility] Chloride 106 94 - 109 09/24/2020 [place] mmol/L 7:55 AM [facility] Carbon Dioxide 23 20 - 32 09/24/2020 [place] mmol/L 8:00 AM [facility] Anion Gap 7 3 - 14 09/24/2020 [place] mmol/L 8:00 AM [facility] Glucose 94 70 - 99 09/24/2020 [place] mg/dL 8:00 AM [facility] Urea Nitrogen 6 (L) 7 - 30 09/24/2020 [place] mg/dL 8:00 AM [facility] Creatinine 0.44 (L) 0.52 - 09/24/2020 [facility] 1.04 mg/dL 8:00 AM [facility] GFR Estimate >90 >60 09/24/2020 [place] mL/min/{1. 8:00 AM [facility] 73_m2} HOSPITAL Comment: Non GFR Calc Starting 06/27/2018, serum creatinine ba sed estimated GFR (eGFR) will be calculated using the Chronic Kidney Dise [facility] Epidemiology Collaboration (CKD-EPI) equation. GFR Estimate If >90 >60 mL/min/{1.73_m2} 09/24/2020 8: 00 AM [facility] Comment: GFR Calc Starting 06/27/2018, serum creatinine ba sed estimated GFR (eGFR) will be calculated using the Chronic Kidney Dise [facility] Epidemiology Collaboration (CKD-EPI) equation. Calcium 8.6 8.5 - 10.1 mg/dL 09/24/2020 8:00 AM [facility] Specimen Anatomical Collection Method Collection Time Receive d Time (Source) Location / / Volume Laterality Blood specimen 09/24/2020 7:30 AM 021 7:41 (specimen) [facility] Apolinar Wray MD LAB - BLOOD ORDERABLES Performing Organization Address City/State/ZIP Code Phon e Number M [place] [address] [place] [address] [facility] [address] [place] [phone] (ABNORMAL) CBC with platelets differential (09/24/2020 7:30 AM [facility]) [facility] gist Method Time Signature WBC 9.9 4.0 - 09/24/2020 [facility] 11.0 7:49 AM [facility] 10e9/L HOSPITAL RBC Count 3.95 3.8 - 5.2 09/24/2020 [facility] 10e12/L 7:49 AM [facility] Hemoglobin 10.5 (L) 11.7 - 09/24/2020 [facility] 15.7 g/dL 7:49 AM [facility] Hematocrit 34.3 (L) 35.0 - 09/24/2020 [facility] 47.0 % 7:49 AM [facility] MCV 87 78 - 100 09/24/2020 [facility] fl 7:49 AM [facility] MCH 26.6 26.5 - 09/24/2020 [facility] 33.0 pg 7:49 AM [facility] MCHC 30.6 (L) 31.5 - 09/24/2020 [facility] 36.5 g/dL 7:49 AM [facility] RDW 13.1 10.0 - 09/24/2020 [facility] 15.0 % 7:49 AM [facility] Platelet Count 219 150 - 450 09/24/2020 [facility] 10e9/L 7:49 AM [facility] Diff Method Automated 09/24/2020 [facility] Method 7:49 AM [facility] % Neutrophils 65.3 % 09/24/2020 [facility] 7:49 AM [facility] % Lymphocytes 23.4 % 09/24/2020 [facility] 7:49 AM [facility] % Monocytes 6.3 % 09/24/2020 [facility] 7:49 AM [facility] % Eosinophils 3.7 % 09/24/2020 [facility] 7:49 AM [facility] % Basophils 0.3 % 09/24/2020 [facility] 7:49 AM [facility] % Immature 1.0 % 09/24/2020 [facility] Granulocytes 7:49 AM [facility] Nucleated RBCs 0 0 /100 09/24/2020 [facility] 7:49 AM [facility] Absolute 6.5 1.6 - 8.3 09/24/2020 [facility] Neutrophil 10e9/L 7:49 AM [facility] Absolute 2.3 0.8 - 5.3 09/24/2020 [facility] Lymphocytes 10e9/L 7:49 AM [facility] Absolute 0.6 0.0 - 1.3 09/24/2020 [facility] Monocytes 10e9/L 7:49 AM [facility] Absolute 0.4 0.0 - 0.7 09/24/2020 [facility] Eosinophils 10e9/L 7:49 AM [facility] Absolute 0.0 0.0 - 0.2 09/24/2020 [place] Basophils 10e9/L 7:49 AM [facility] Abs Immature 0.1 0 - 0.4 09/24/2020 [facility] Granulocytes 10e9/L 7:49 AM [facility] Absolute 0.0 09/24/2020 [facility] Nucleated RBC 7:49 AM [facility] Specimen Anatomical Collection Method Collection Time Receive d Time (Source) Location / / Volume Laterality Blood specimen 09/24/2020 7:30 AM 021 7:41 (specimen) CDT AM CDT Apolinar Wray MD LAB - BLOOD ORDERABLES Performing Organization Address City/State/ZIP Code Phon e Number [facility] [address] [place] [address] [facility] [address] [phone] EKG 12-lead, tracing only (09/24/2020 6:49 AM CDT) [facility] gist Method Time Signature Interpretation ECG Click View RADIOLOGY Image link RESULTS to view waveform and result Specimen (Source) Anatomical Collection Method Collection Time Re ceived Time Location / / Volume Laterality 09/24/2020 6:49 AM CDT Apolinar Wray MD ECG ORDERABLES Performing Organization Address City/[facility]/ZIP [facility] Phon e Number RADIOLOGY RESULTS documented in this encounter Visit Diagnoses Diagnosis Chest pain, unspecified type Abdominal pain, generalized documented in this encounter Administered Medications Inactive Administered Medications - up to 3 most recent administrations Medication Order MAR Action Action Date Dose Rate Site 0.9% sodium chloride BOLUS New Bag 09/24/2020 8:00 AM CDT 1,000 mLs 1000 mL/hr Intravenous, 1,000 mL, ONCE, at 1,000 mL/hr, Administer over 1 Hours, On Tue09/24/20 at 0745, For 1 dose documented in this encounter Active and Recently Administered Medications Times are shown in CDT. Scheduled Medication Order 09/22/2020 09/23/2020 09/24/2020 0.9% sodium chloride BOLUS (COMPLETED) 0800 (New Bag - Provider: Brigette Vidal, RN)1025 (Stopped - Provider: Brigette Vidal RN) Intravenous, 1,000 mL, ONCE, at 1,000 mL /hr, Administer over 1 Hours, Tue09/24/20 at 0745, For 1 dose documented in this encounter Additional Health Concerns Infection Onset Date Last Indicated Resolved Time Rule Out COVID-19 09/24/2020 09/24/2020 09/24/2020 9:2 4 AM CDT Assessment Noted Time PHQ-9 Depression Total Score: 9 06/25/2020 7:04 AM RADIOGRAPHY TECHNICIAN documented as of this encounter Care Teams Ceramic Tile Installer Relationship Specialty Start Date End Date Marija Edgar APRN PCP - General Nurse Practitioner 04/30/20 CLINICAL ASSISTANT PROFESSOR [address] [place] [address] Lita Oseguera Personal Advocate & 02/28/20 Liaison (PAL) Chanelle Mccann Assigned OBGYN Provider 05/02/20 05/09/21 [place] [address] [place], [address] [place], [place] [address] Kyara De La Fuente, VJ Specialty Care Neurology 06/04/20 03/05/21 Coordinator Marija Edgar APRN Assigned PCP 06/08/20 CLINICAL ASSISTANT PROFESSOR [address] [place], [place] [phone] Mynor Broussard MD Assigned Surgical 06/01/20 11/28/21 [address] Provider [address] [place], [place] [address] Keisha Dotson, Assigned Neuroscience 06/04/20 MD Provider [address] [place] [address] Stacey Briones, BILLET SHEARER Lead Cattle Alley Worker Primary Care - CC 08/11/20 12/30/20 Lesley Moody, Community Health Worker 08/11/20 10/01/20 [place] Mary Mejia Financial Resource 09/02/20 303/31 Worker documented as of this encounter
--- OUTSIDE RECORDS SUMMARY | 2022-04-28 01:18 | XMS_ITS | Encounter Summary ---
:2000 Author Organization [facility] Address [address] [place] [address] Care Team Providers Name Role Phone Lita Oseguera Unavailable Unavailable Marija Edgar APRN MERCHANDISE ADJUSTMENT CLERK Primary Care Provider [phone] Chanelle Mccann APRN CNM Unavailable + Kyara De La Fuente RN Unavailable Marija Edgar APRN MERCHANDISE ADJUSTMENT CLERK Unavailable Mynor Broussard MD Unavailable Keisha Dotson MD Unavailable Stacey Briones MENTALLY IMPAIRED TEACHER Unavailable Lesley Moody MA Unavailable Mary Mejia Unavailable Unavailable Encounter Details Date Type Department Care Team Description 09/29/2020 Orders Only [facility] Epilepsy Care Mauri, Focal epilepsy (H) 0906 Romina Valdes MD (Primary Dx) [address], [address] [place] [address] [phone] Social History Tobacco Use Types Packs/Day Years [...] How often do you attend episcopal or sikh services? Never 09/22/2021 Do you [...] Office Visit Family Practice Anthony Doe PA-C [address] [place] [address] (Wo rk) 05/03/2022 Office Visit Dermatology Neil Kent M D [address] [place], [place] [address] (Wo rk) 05/05/2022 Office Visit Optometry Yeny David, OD [address] [facility] [place] [address] (Wo rk) 05/11/2022 Virtual Visit Pharm D Diana Desir , [facility] [address] [place], [place] [address] (Wo rk) 05/14/2022 Office Visit Cardiology Livan Sharif MD [address] [facility] [address] [place], [place] [address] (Wo rk) 05/31/2022 Office Visit Family Practice Valery Veronica , PA-C [address] [place], [place] [address] (Wo rk) documented as of this encounter Visit Diagnoses Diagnosis 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 with simple partial seizures, without mention of int ractable epilepsy documented in this encounter Additional Health Concerns Assessment Noted Time PHQ-9 Depression Total Score: 6 09/29/2020 3:25 PM CDT documented as of this encounter Care Teams Pm Head Cook Relationship Specialty Start Date End Date Marija Edgar APRN PCP - General Nurse Practitioner 04/30/20 MERCHANDISE ADJUSTMENT CLERK [address] [place], [place] [phone] Lita Oseguera Personal Advocate & 02/28/20 Liaison (PAL) Chanelle Mccann Assigned OBGYN Provider 05/02/20 05/09/21 ARLENE Mooney CNM [address], [address] [place], [place] [address] Leisa, Kyara, RN Specialty Care Neurology 06/04/20 03/05/21 Coordinator Marija Edgar APRN Assigned PCP 06/08/20 MERCHANDISE ADJUSTMENT CLERK [address] [place] [address] Mynor Broussard MD Assigned Surgical 06/01/20 11/28/21 [address] [facility] Provider [address] [place] [address] Keisha Dotson, Assigned Neuroscience 06/04/20 MD Provider [address] [place] [address] Stacey Briones, MENTALLY IMPAIRED TEACHER Lead Independent Video Producer Primary Care - CC 08/11/20 12/30/20 Lesley Moody, Community Health Worker 08/11/20 10/01/20 [place] Mary Mejia Financial Resource 09/02/2009/09 Worker documented as of this encounter
--- OUTSIDE RECORDS SUMMARY | 2022-04-28 01:18 | XMS_ITS | Encounter Summary ---
:2000 Author Organization [place] Address [address] [place] [address] Care Team Providers Name Role Phone Lita Oseguera Unavailable Unavailable Marija Edgar APRN SEISMOLOGY TECHNICAL OFFICER Primary Care Provider [phone] Chanelle Mccann APRN CNM Unavailable + Kyara De La Fuente RN Unavailable Marija Edgar APRN SEISMOLOGY TECHNICAL OFFICER Unavailable Mynor Broussard MD Unavailable Keisha Dotson MD Unavailable Stacey Briones ANGLEDOZER OPERATOR Unavailable Lesley Moody MA Unavailable Mary Mejia Unavailable Unavailable Lita Oseguera Unavailable Unavailable Encounter Details Date Type Department Care Team Description 09/17/2020 Travel Social History Tobacco Use Types Packs/Day [...] How often do you attend druze or voodoo services? Never 09/22/2021 Do you [...] with No / Unsure 09/17/2020 1:23 PM STEAM PLANT OPERATOR someone who was confirmed or suspected to have Coronavirus / COVID-19? documented as of this encounter Plan of Treatment Upcoming Encounters Date Type Specialty Care Team Description 04/28/2022 Office Visit Family Practice Anthony Doe PA-C [address] [place], [place] [phone] (Wo rk) 05/03/2022 Office Visit Dermatology Neil Kent M D [address] [place] [phone] (Wo rk) 05/05/2022 Office Visit Optometry Yeny David, OD [address] [facility] [address] [place] [phone] (Wo rk) 05/11/2022 Virtual Visit Pharm D Diana Desir , [facility] [address] [place], [place] [address] (Wo rk) 05/14/2022 Office Visit Cardiology Livan Sharif MD [address], [facility] [address] [place], [place] [address] (Wo rk) 05/31/2022 Office Visit Family Practice Valery Veronica , PA-C [address] [place] [address] (Wo rk) documented as of this encounter Visit Diagnoses Not on filedocumented in this encounter Additional Health Concerns Assessment Noted Time PHQ-9 Depression Total Score: 9 06/25/2020 7:04 AM STEAM PLANT OPERATOR documented as of this encounter Care Teams Family Manager Relationship Specialty Start Date End Date Marija Edgar APRN PCP - General Nurse Practitioner 04/30/20 SEISMOLOGY TECHNICAL OFFICER [address] [place], [place] [phone] Lita Oseguera Personal Advocate & 02/28/20 Liaison (PAL) Chanelle Mccann Assigned OBGYN Provider 05/02/20 05/09/21 [place] [address] [place], [facility] [address] [place], [place] [address] Kyara De La Fuente, VJ Specialty Care Neurology 06/04/20 03/05/21 Coordinator Marija Edgar APRN Assigned PCP 06/08/20 SEISMOLOGY TECHNICAL OFFICER [address] [place], [place] [phone] Mynor Broussard MD Assigned Surgical 06/01/20 11/28/21 [address] [facility] Provider [address] [place] [address] Keisha Dotson, Assigned Neuroscience 06/04/20 MD Provider [address] [place] [address] Stacey Briones, ANGLEDOZER OPERATOR Lead Supervisor Plate Forming Primary Care - CC 08/11/20 12/30/20 Lesley Moody, Community Health Worker 08/11/20 10/01/20 [place] Mary Mejia Financial Resource 09/02/2009/09 Worker Lita Oseguera Personal Advocate & Family Medicine 09/10/20 09/21/20 Liaison (PAL) documented as of this encounter
--- OUTSIDE RECORDS SUMMARY | 2022-04-28 01:18 | XMS_ITS | Encounter Summary ---
:2000 Author Organization [place] Address [address] [place] [address] Care Team Providers Name Role Phone Lita Oseguera Unavailable Unavailable Marija Edgar APRN CHILD SUPPORT AGENT Primary Care Provider [phone] Chanelle Mccann APRN CNM Unavailable + Kyara De La Fuente RN Unavailable Marija Edgar APRN CHILD SUPPORT AGENT Unavailable Mynor Broussard MD Unavailable Keisha Dotson MD Unavailable Stacey Briones HOSPITAL RECEPTIONIST Unavailable Lesley Moody MA Unavailable Mary Mejia Unavailable Unavailable Encounter Details Date Type Department Care Team Description 09/24/2020 Travel Social History Tobacco Use Types Packs/Day [...] week 09/22/2021 How often do you attend holiness or yarsanism services? Never 09/22/2021 Do you belong to any clubs or organizations such as No 09/22/2021 holiness groups, unions, fraternal or athletic groups, or [...] Office Visit Family Practice Anthony Doe PA-C [address] [place], [place] [phone] (Wo rk) 05/03/2022 Office Visit Dermatology Neil Kent M D [address] [place] [phone] (Wo rk) 05/05/2022 Office Visit Optometry Yeny David, OD [address] [facility] [address] [place] [phone] (Wo rk) 05/11/2022 Virtual Visit Pharm D Diana Desir , [facility] [address] [place], [place] [phone] (Wo rk) 05/14/2022 Office Visit Cardiology Livan Sharif MD [address] [facility] [address] [place], [place] [address] (Wo rk) 05/31/2022 Office Visit Family Practice Valery Veronica , PABaldo [address] [place] [address] (Wo rk) documented as of this encounter Visit Diagnoses Not on filedocumented in this encounter Additional Health Concerns Infection Onset Date Last Indicated Resolved Time Rule Out COVID-19 09/24/2020 09/24/2020 09/24/2020 9:2 4 AM CDT Assessment Noted Time PHQ-9 Depression Total Score: 9 06/25/2020 7:04 AM ASBESTOS ABATEMENT WORKER documented as of this encounter Care Teams Supervisor Customer Records Division Relationship Specialty Start Date End Date Marija Edgar APRN PCP - General Nurse Practitioner 04/30/20 CHILD SUPPORT AGENT [address] [place], [place] [phone] Lita Oseguera Personal Advocate & 02/28/20 Liaison (PAL) Chanelle Mccann Assigned OBGYN Provider 05/02/20 05/09/21 ARLENE Mooney [facility] [address] [address] [address] [place], [place] [address] Kyara De La Fuente, VJ Specialty Care Neurology 06/04/20 03/05/21 Coordinator Marija Edgar APRN Assigned PCP 06/08/20 CHILD SUPPORT AGENT [address] [place], [place] [phone] Mynor Broussard MD Assigned Surgical 06/01/20 11/28/21 [address] [place] Provider [address] [place], [place] [address] Keisha Dotson, Assigned Neuroscience 06/04/20 MD Provider [address] [place], [place] [address] Stacey Briones, HOSPITAL RECEPTIONIST Lead Commercial Loan Reviewer Primary Care - CC 08/11/20 12/30/20 Lesley Moody, Community Health Worker 08/11/20 10/01/20 [place] Mary Mejai Financial Resource 09/02/20 303/31 Worker documented as of this encounter
--- OUTSIDE RECORDS SUMMARY | 2022-04-28 01:18 | XMS_ITS | Encounter Summary ---
:2000 Author Organization [facility] Address [address] [place] [address] Care Team Providers Name Role Phone Lita Oseguera Unavailable Unavailable Marija Edgar APRN PERSONAL BANKING ADVISOR Primary Care Provider [phone] Chanelle Mccann APRN CNM Unavailable + Kyara De La Fuente RN Unavailable Marija Edgar APRN PERSONAL BANKING ADVISOR Unavailable Mynor Broussard MD Unavailable Keisha Dotson MD Unavailable Stacey Briones BARREL ENDSHAKE ADJUSTER Unavailable Lesley Moody MA Unavailable Mary Mejia Unavailable Unavailable Reason for Visit Reason Comments Irregular Heart Beat SVT, review zio/echo, pt 20w ks pg (Routine) - Closed Specialty Diagnoses / Procedures Referred By Contact Refer red To Contact Diagnoses SVT (supraventricular tachycardia) (H) Elizabeth Perez MD [address] [address] Referral ID Status Reason Start Date Expiration Date Visits Requ ested Visits Authorized [id number] Closed 08/29/2020 08/29/2021 1 1 Encounter Details Date Type Department Care Team Description 09/30/2020 Office Visit [facility] Elizabeth Perez MD [address] [id number] SVT (supraventricular [facility] Zachary Martini MD [address] [facility] [address] [place] [id number] tachycardia) (H) [address] [facility] [address] [place] [address] Social History Tobacco [...] How often do you attend lutheran or denominational services? Never 09/22/2021 Do you [...] Sign Reading Time Taken Comments Blood Pressure 111/70 09/30/2020 8:21 AM CDT Pulse 78 09/30/2020 8:21 AM CDT Temperature - - Respiratory Rate - - Oxygen Saturation - - Inhaled Oxygen Concentration - - Weight 90.3 kg (199 lb) 09/30/2020 8:21 AM CDT Height 170.2 cm (5' 7) 09/30/2020 8:21 AM CDT Body Mass Index 31.17 09/30/2020 8:21 AM CDT documented in this encounter Progress Notes Zachary Burrell MD - 09/30/2020 8:53 AM CDT Service Date: 09/30/2020 CLINIC NOTE REFERRING PROVIDER: Elizabeth Perez MD HISTORY OF PRESENT ILLNESS: I saw Ms. Clark for evaluation of SVT. She is a 20-year-old white female who is currently about 20 weeks with her first child. She was known to have episodes of heart racing previously, and the symptoms are getting worse during the . At the present time, she has at least one episode of heart racing daily. The duration is about a few seconds to a few minutes. It is described as sudden onset of rapid heart pounding with some shortness of breath and chest discomfort. She has been to the ER about 3 times. Her echocardiogram is normal. The resting EKG is normal as well. The Zio patch monitor detected at least one episode of SVT that had a clear sudden onset. Unfortunately, the other episodes did not have a clear recording of the onset or termination. Therefore, I am not sure how many episodes of SVT she indeed had during the Zio patch monitor. I did not see termination of SVT on the Zio patch monitor, either. She has not had syncope or near syncope. PAST MEDICAL HISTORY: Remarkable for seizure disorder, depression/anxiety, GI reflux. She does not drink alcohol. She quit smoking years ago. FAMILY HISTORY: Unremarkable for sudden cardiac or cardiomyopathy. PHYSICAL EXAMINATION: VITAL SIGNS: Blood pressure 111/70, heart rate 78 beats per minute, body weight 199 pounds. EYES/ENT: Unremarkable. LUNGS: Clear. CARDIAC: Rhythm is regular, and heart sounds are normal without murmur. She has a tattoo over the upper chest. ABDOMEN: Examination is consistent with her stage of . EXTREMITIES: There is no pedal edema. ASSESSMENT AND RECOMMENDATIONS: Ms. Clark is a 20-year-old lady with symptoms typical of recurrent SVT. At least one episode of the tachycardia was documented by the Zio patch monitor. She has no apparent structural heart disease. At this point, I recommend continuing the same dose of metoprolol because the arrhythmia is typically short lasting. I asked the patient to lie down and take a deep breathto hold as long as possible if she has recurrent heart racing in the near future. If the problem becomes worse in the near future, we can increase the dose of metoprolol from 25-50 mg once a day. She is asked to come back for a followup visit in about 6 months. At that time, we may discuss the possibility of catheter ablation for cure of the SVT. cc: Elizabeth Perez MD [facility] [address] [place] [address] ZACHARY BURRELL MD MT: tor Name: KIM CLARK Account: [id number] : 2000 Service Date: 09/30/2020 Document: [id number] Zachary Burrell MD - 09/30/2020 8:15 AM CDT HPI and Plan: See dictation Orders Placed This Encounter Procedures ??? Follow-Up with Corn Sheller ??? EKG 12-lead complete w/read (Future)- to be scheduled No orders of the defined types were placed in this encounter. Medications Discontinued During This Encounter Medication Reason ??? naproxen (NAPROSYN) 500 MG tablet ??? lamoTRIgine (LAMICTAL) 25 MG tablet Encounter Diagnosis Name Primary? SVT (supraventricular tachycardia) (H) CURRENT MEDICATIONS: Current Outpatient Medications Medication Sig Dispense Refill ??? levETIRAcetam (KEPPRA) 500 MG tablet Take 1 tab twice a day for 1 week and then 1 1/2 tabs twicea day 90 tablet 3 ??? metoprolol succinate ER (TOPROL-XL) 25 MG 24 hr tablet Take 1 tablet (25 mg) by mouth daily 30 tablet 0 ??? omeprazole (PRILOSEC) [address] capsule Take 1 capsule (40 mg) by mouth daily 90 capsule 3 ??? Vit-Fe Fumarate-FA ( MULTIVITAMIN W/IRON) 27-0.8 MG tablet Take 1 tablet by mouth daily 90 tablet 3 ??? sertraline (ZOLOFT) 100 MG tablet TAKE ONE AND ONE-HALF TABLETS BY MOUTH EVERY DAY 135 tablet 0 ??? folic acid (FOLVITE) 1 MG tablet Take 1 tablet (1 mg) by mouth 2 times daily 180 tablet 3 ALLERGIES No Known Allergies PAST MEDICAL HISTORY: [...] Other Quit date: 12/07/2019 Years since quittin.8 ??? Smokeless tobacco: Never Used Substance and [...] week Gets together: Once a week Attends denominational service: More than 4 times per year Active member of club or organization: No Attends meetings of clubs or organizations: Never Relationship status: Never ??? Intimate partner violence Fear of current or ex partner: No Emotionally abused: No Physically abused: No Forced sexual activity: No Other Topics Concern ??? Parent/sibling w/ CABG, [place] or angioplasty before 65F 55M? Not Asked Social History Narrative ??? None Review of Systems: Skin: Negative Eyes: Negative ENT: Negative Respiratory: Positive for dyspnea on exertion Cardiovascular: palpitations;Positive for SVT Gastroenterology: Negative Genitourinary: Negative Musculoskeletal: Negative Neurologic: Positive for epilepsy Psychiatric: Positive for depression Heme/Lymph/Imm: Positive for anemia hx of anemia Endocrine: Negative Physical Exam: Vitals: BP 111/70 Pulse 78 Ht 1.702 m (5' 7) Wt 90.3 kg (199 lb) LMP 04/29/2020 BMI 31.17kg/m?? Constitutional: cooperative, alert and oriented, well developed, [...] Psych: Alert and Oriented x 3 CC Elizabeth Perez MD [address] [address] documented in this encounter Plan of Treatment Upcoming Encounters Date Type Specialty Care Team Description 04/28/2022 Office Visit Family Practice Anthony Doe PAUcheC [address] [place] [address] (Wo rk) 05/03/2022 Office Visit Dermatology Neil Kent M D [address] [place] [phone] (Wo rk) 05/05/2022 Office Visit Optometry Yeny David, OD [address] [facility] [address] [place] [phone] (Wo rk) 05/11/2022 Virtual Visit Pharm D Diana Desir , [facility] [address] [place], [place] [phone] (Wo rk) 05/14/2022 Office Visit Cardiology Livan Sharif MD [address] [facility] [address] [place] [address] (Wo rk) 05/31/2022 Office Visit Family Practice Valery Veronica PA-C [address]09 [place], [place] [address] (Wo rk) documented as of this encounter Visit Diagnoses Diagnosis SVT (supraventricular tachycardia) (H) Other specified cardiac dysrhythmias documented in this encounter Additional Health Concerns Assessment Noted Time PHQ-9 Depression Total Score: 6 09/29/2020 3:25 PM CDT documented as of this encounter Care Teams Flight Simulator Teacher Relationship Specialty Start Date End Date Marija Edgar APRN PCP - General Nurse Practitioner 04/30/20 PERSONAL BANKING ADVISOR [address] [place] [address] Lita Oseguera Personal Advocate & 02/28/20 Liaison (PAL) Chanelle Mccann Assigned OBGYN Provider 05/02/20 05/09/21 ARLENE Mooney CNM [address] [place], [facility] [address] [place], [place] [phone] Kyara De La Fuente, VJ Specialty Care Neurology 06/04/20 03/05/21 Coordinator Marija Edgar APRN Assigned PCP 06/08/20 PERSONAL BANKING ADVISOR [address] [place] [address] Mynor Broussard MD Assigned Surgical 06/01/20 11/28/21 6[address] [facility] Provider 500 [place] [address] Keisha Dotson, Assigned Neuroscience 06/04/20 Provider [address]09 [place] [address] Stacey Briones, BARREL ENDSHAKE ADJUSTER Lead Box Strapper Primary Care - CC 08/11/20 12/30/20 Lesley Moody, Community Health Worker 08/11/20 10/01/20 OR Mary Mejia Financial Resource 09/02/2009/09 Worker documented as of this encounter
--- OUTSIDE RECORDS SUMMARY | 2022-04-28 01:18 | XMS_ITS | Encounter Summary ---
:2000 Author Organization [facility] Address [address] [place] [address] Care Team Providers Name Role Phone Lita Oseguera Unavailable Unavailable Marija Edgar APRN GETTERING FILAMENT 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 Primary Care Provider [phone] Chanelle Mccann APRN CNM Unavailable + Kyara De La Fuente RN Unavailable Marija Edgar APRN GETTERING FILAMENT 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 Unavailable Mynor Broussard MD Unavailable Keisha Dotson MD Unavailable Stacey Briones HEAD MEN'S TENNIS COACH Unavailable Lesley Moody MA Unavailable Mary Mejia Unavailable Unavailable Reason for Visit (Routine) - Closed Specialty Diagnoses / Procedures Referred By Contact Refer red To Contact Respiratory Therapy Diagnoses Chest pain Shortness of breath Rh Respiratory Ther Procedures [facility] SPIROMETRY, BREATH CAPACITY PULMONARY FUNCTION TEST [address] [place] [address] Phone: Referral ID Status Reason Start Date Expiration Date Visits Requ ested Visits Authorized [id number] Closed 09/08/2020 09/08/2021 1 1 Encounter Details Date Type Department Care Team Description 09/08/2020 [facility] (shortness of [place] Respiratory Jonh Robin, breath ) Therapy MD Sofi Garcia [facility] [address] [place] [address] [place] [address] [phone] Social History Tobacco Use Types Packs/Day Years [...] How often do you attend sikh or hoahaoism services? Never 09/22/2021 Do you [...] with No / Unsure 09/08/2020 3:07 PM ANIMAL CRUELTY INVESTIGATION SUPERVISOR someone who was confirmed or suspected [...] documented as of this encounter Progress Notes Travis Serrano, RT - 09/08/2020 4:38 PM CST .PFT Note: Pt completed pulmonary function testing with MVV, MIP/MEP and DLCO. Good Pt effort and cooperation. Spirometry Meets all ATS recommendations. Plethysmography All plethysmographic measurements meet ATS recommendations. DLCO Meets all ATS recommendations. DLCO is an average of 2 maneuvers. Predicted DLCO is corrected for a Hgb of 10.5 drawn on 09/03/2020. September 08, 2020.4:38 PM Travis Serrano, RT AL CRUELTY INVESTIGATION SUPERVISOR documented in this encounter Plan of Treatment Upcoming Encounters Date Type Specialty Care Team Description 04/28/2022 Office Visit [facility] Anthony Doe, [place] [place], [place] [phone] (Wo rk) 05/03/2022 Office Visit Dermatology Neil Kent M D [address] [place], [place] [phone] (Wo rk) 05/05/2022 Office Visit Optometry Yeny David, OD [address] [facility] [address] [place], [place] [phone] (Wo rk) 05/11/2022 Virtual Visit Pharm D Diana Desir , [facility] [address] [place], [place] [address] (Wo rk) 05/14/2022 Office Visit Cardiology Livan Sharif MD [address] [facility] [address] , [facility] [address] [place], [place] [address] (Wo rk) 05/31/2022 Office Visit [facility] Valery Veronica , PABaldo [address] [place], [place] [address] (Wo rk) Scheduled Orders Name Type Priority Associated Diagnoses Order S chedule Pulmonary Function Test PFT Routine SOB (shortness of 1 Occurrences starting breath) 09/08/2020 unti l 09/08/2020 documented as of this encounter Procedures Procedure Name Priority Date/Time Associated Diagnosis Comme nts PFT GENERAL LAB Routine 09/08/2020 3:17 PM SOB (shortness of R esults for this TESTING ANIMAL CRUELTY INVESTIGATION SUPERVISOR breath) procedure are i n the results section. documented in this encounter Results General PFT Lab (Please always keep checked) (09/08/2020 3:17 PM ANIMAL CRUELTY INVESTIGATION SUPERVISOR) P athologist Signature FVC-Pred 4.07 L [facility] FVC-Pre 5.28 L [facility] FVC-%Pred-Pre 129 % [facility] FEV1-Pre 4.35 L [facility] FEV1-%Pred-Pre 122 % [facility] [id number] 88 % [facility] [id number] 82 % [facility] FEFMax-Pred 7.13 L/sec [facility] FEFMax-Pre 6.61 L/sec [facility] FEFMax-%Pred-Pr 92 % [facility] e [id number] 4.12 L/sec [facility] [id number] 4.55 L/sec [facility] [id number]-%Pred-P 110 % [facility] re ExpTime-Pre 6.38 sec [facility] FIFMax-Pre 5.49 L/sec [facility] MEP-Pre 49 cmH2O [facility] MIP-Pre -52 cmH2O [facility] MVV-Pred 118 L/min [facility] MVV-Pre 118 L/min [facility] MVV-%Pred-Pre 100 % [facility] VC-Pred 4.36 L [facility] VC-Pre 5.16 L [facility] VC-%Pred-Pre 118 % [facility] IC-Pred 3.25 L [facility] IC-Pre 3.49 L [facility] IC-%Pred-Pre 107 % [facility] ERV-Pred 1.11 L [facility] ERV-Pre 1.67 L [facility] ERV-%Pred-Pre 149 % [facility] [id number] 87 % [facility] [id number]-Pyk 82 % [facility] FRCPleth-Pred 2.78 L [facility] FRCPleth-Pre 2.63 L [facility] FRCPleth-%Pred- 94 % [facility] Pre RVPleth-Pred 1.43 L [facility] RVPleth-Pre 0.96 L [facility] RVPleth-%Pred-P 66 % [facility] re TLCPleth-Pred 5.27 L [facility] TLCPleth-Pre 6.12 L [facility] TLCPleth-%Pred- 116 % [facility] Pre DLCOunc-Pred 23.52 ml/min/mmHg [facility] DLCOunc-Pre 27.59 ml/min/mmHg [facility] DLCOunc-%Pred-P 117 % [facility] re DLCOcor-Pre 30.73 ml/min/mmHg [facility] DLCOcor-%Pred-P 130 % [facility] re VA-Pre 5.92 L [facility] VA-%Pred-Pre 118 % [facility] [id number] 81 % [facility] [id number]-[id number] 84 % [facility] Specimen (Source) Anatomical Collection Method Collection Time Re ceived Time Location / / Volume Laterality 09/08/2020 3:17 PM ANIMAL CRUELTY INVESTIGATION SUPERVISOR Narrative [facility] - 09/09/2020 7:04 PM ANIMAL CRUELTY INVESTIGATION SUPERVISOR The FVC, FEV1, FEV1/FVC ratio and QKS07-49% are within normal limits. ??The inspiratory flow rates are within normal limits. ??Lung volumes are within normal limits. ??The diffusing capacity is normal. IMPRESSION: Normal Pulmonary Function. The MIP and MEP are reduced, although th is should be viewed in context of patient's coexisting disease and activity status as normative data not well established. No previous studies available for compar flaca. Caitlin Price MD ____CAITLIN MEJIA ?This interpretation has been electro nically signed: ??CAITLIN PRICE 09/09/2020 ??06:53:25 PM? Matti David MD PFT ORDERABLES Performing Organization Address City/State/ZIP Code Phon e Number [facility] documented in this encounter Visit Diagnoses Diagnosis SOB (shortness of breath) Shortness of breath documented in this encounter Additional Health Concerns Assessment Noted Time PHQ-9 Depression Total Score: 9 06/25/2020 7:04 AM ANIMAL CRUELTY INVESTIGATION SUPERVISOR documented as of this encounter Care Teams Printer Small Print Shop Relationship Specialty Start Date End Date Marija Edgar APRN PCP - General Nurse Practitioner 04/30/20 GETTERING FILAMENT 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 [address] [place] [address] Lita Oseguera Personal Advocate & 02/28/20 Liaison (PAL) Chanelle Mccann Assigned OBGYN Provider 05/02/20 05/09/21 [place] [address] [address] [facility] [address] [place], [place] [address] Kyara De La Fuente, VJ Specialty Care Neurology 06/04/20 03/05/21 Coordinator aMrija Edgar APRN Assigned PCP 06/08/20 GETTERING FILAMENT 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 [address] [place], [place] [phone] Mynor Broussard MD Assigned Surgical 06/01/20 11/28/21 6[address] [facility] Provider 500 [place], [place] [address] Keisha Dotson, Assigned Neuroscience 06/04/20 MD Provider [address] [place], [place] [address] Stacey Briones, HEAD MEN'S TENNIS COACH Lead Gauge Controller Primary Care - CC 08/11/20 12/30/20 Lesley Moody, Community Health Worker 08/11/20 10/01/20 MA Mary Mejia Financial Resource 09/02/2009/09 Worker documented as of this encounter
--- OUTSIDE RECORDS SUMMARY | 2022-04-28 01:19 | XMS_ITS | Encounter Summary ---
:2000 Author Organization [facility] Address [address] [place] [address] Care Team Providers Name Role Phone Lita Oseguera Unavailable Unavailable Marija Edgar APRN HEADING SAW OPERATOR Primary Care Provider [phone] Chanelle Mccann APRN CNM Unavailable + Kyara De La Fuente RN Unavailable Marija Edgar APRN HEADING SAW OPERATOR Unavailable Mynor Broussard MD Unavailable Keisha Dotson MD Unavailable Stacey Briones SUPERVISOR BOTTLE MACHINES Unavailable Lesley Moody MA Unavailable Mary Mejia Unavailable Unavailable Reason for Visit Reason Comments Ultrasound L2- seizure disorder Encounter Details Date Type Department Care Team Description 09/05/[address] [facility] Kathy Lyles Ultr asound (L2- seizure Maternal Medicine RN brandieo carmen) [facility] [address] [facility] [address] [place] [address] Social History Tobacco Use Types [...] How often do you attend holiness or druze services? Never 09/22/2021 Do you belong to [...] been in contact with No / Unsure 09/03/2020 12:11 PM BANQUET FOOD SERVER someone who was confirmed or suspected to have Coronavirus / COVID-19? documented as of this encounter Plan of Treatment Upcoming Encounters Date Type Specialty Care Team Description 04/28/2022 Office Visit Family Practice Anthony Doe PA-C [address] [place] [address] (Wo rk) 05/03/2022 Office Visit Dermatology Neil Kent M D [address] [place] [address] (Wo rk) 05/05/2022 Office Visit Optometry Yeny David, OD [address] [facility] [place] [address] (Wo rk) 05/11/2022 Virtual Visit Pharm D Diana Desir , [facility] [address] [place], [place] [address] (Wo rk) 05/14/2022 Office Visit Cardiology Livan Sharif MD [address] [facility] [address] [place], [place] [address] (Wo rk) 05/31/2022 Office Visit Family Practice Valery eVronica , PAUcheC [address] [place] [address] (Wo rk) documented as of this encounter Visit Diagnoses Not on filedocumented in this encounter Additional Health Concerns Assessment Noted Time PHQ-9 Depression Total Score: 9 06/25/2020 7:04 AM BANQUET FOOD SERVER documented as of this encounter Care Teams Medical And Scientific Illustrator Relationship Specialty Start Date End Date Marija Edgar APRN PCP - General Nurse Practitioner 04/30/20 HEADING SAW OPERATOR [address] [place], [place] [phone] Lita Oseguera Personal Advocate & 02/28/20 Liaison (PAL) Chanelle Mccann Assigned OBGYN Provider 05/02/20 05/09/21 [place] [address] [facility] [address] [place] [address] Kyara De La Fuente, VJ Specialty Care Neurology 06/04/20 03/05/21 Coordinator Marija Edgar APRN Assigned PCP 06/08/20 HEADING SAW OPERATOR [address] [place] [address] Mynor Broussard MD Assigned Surgical 06/01/20 11/28/21 [address] [facility] Provider 500 [place], [place] [address] Keisha Dotson, Assigned Neuroscience 06/04/20 Provider [address]09 [place] [address] Stacey Briones, SUPERVISOR BOTTLE MACHINES Lead Supervisor Post Wave Primary Care - CC 08/11/20 12/30/20 Lesley Moody, Community Health Worker 08/11/20 10/01/20 [place] Mary Mejia Financial Resource 09/02/2009/09 Worker documented as of this encounter
--- OUTSIDE RECORDS SUMMARY | 2022-04-28 01:19 | XMS_ITS | Encounter Summary ---
:2000 Author Organization [facility] Address [address] [place] [address] Care Team Providers Name Role Phone Lita Oseguera Unavailable Unavailable Marija Edgar APRN ALCOHOLISM WORKER Primary Care Provider [phone] Chanelle Mccann APRN CNM Unavailable + Kyara De La Fuente RN Unavailable Marija Edgar APRN ALCOHOLISM WORKER Unavailable Mynor Broussard MD Unavailable Keisha Dotson MD Unavailable Stacey Briones REAL ESTATE ACCOUNT EXECUTIVE Unavailable Lesley Moody MA Unavailable Reason for Referral (Routine) - Closed Specialty Diagnoses / Procedures Referred By Contact Refer red To Contact Diagnoses SVT (supraventricular tachycardia) (H) Raul Perez MD [address] [address] Referral ID Status Reason Start Date Expiration Date Visits Requ ested Visits Authorized [id number] Closed 08/29/2020 08/29/2021 1 1 OPULPER OPERATOR Reason for Visit Reason Comments Shortness of Breath Encounter Details Date Type Department Care Team Description 08/29/2020 Emergency [facility] Raul PerezT (supr aventricular tachycardia) (H) (Primary Dx); [facility] Emergency Dep riana Bowles MD Palpitations [address] [place] [phone] Social History Tobacco Use Types Packs/Day Years [...] How often do you attend advent or hinduism services? Never 09/22/2021 Do you belong to [...] been in contact with No / Unsure 08/29/2020 12:01 PM HYDROPULPER OPERATOR someone who was confirmed or suspected to have Coronavirus / COVID-19? documented as of this encounter Last Filed Vital Signs Vital Sign Reading Time Taken Comments Blood Pressure 114/72 08/29/2020 3:00 PM HYDROPULPER OPERATOR Pulse 74 08/29/2020 3:00 PM HYDROPULPER OPERATOR Temperature 36.7 ??C (98.1 ??F) 08/29/2020 3:06 PM HYDROPULPER OPERATOR Respiratory Rate 16 08/29/2020 12:11 PM HYDROPULPER OPERATOR Oxygen Saturation 98% 08/29/2020 2:40 PM HYDROPULPER OPERATOR Inhaled Oxygen Concentration - - Weight - - Height - - Body Mass Index - - documented in this encounter Discharge Instructions Discharge InstructionsRaul Perez MD - 08/29/2020 2:36 PM HYDROPULPER OPERATOR Start the metoprolol daily The heart center should call you to get follow-up with EP doctor. I also ordered an echocardiogram for you Follow up with OB at your scheduled appointment Make sure to keep hydrated with fluids as this medication can decrease your blood pressure OPULPER OPERATOR documented in this encounter Medications at [...] documented as of this encounter ED Notes Katerine Gandhi RN - 08/29/2020 12:10 PM CST Pt with SOB, heart racing and beating hard. Pt states she's had same episodes in the past and seenhere, recently wore a holter monitor but has not gotten results yet. Pt 18 weeks , states hxof anxiety also. ABC's intact, alert and oriented X3. OPULPER OPERATOR Raul Perez MD - 08/29/2020 12:00 PM CST History Chief Complaint: Palpitations HPI Kim Clark is a 20 year old female who is 18 weeks with history of CKD who presents with palpitations. The patient states that she has been having intermittent episodes of palpitations fora long time and has been seen in the ED multiple times for this. She has had a Zio patch but is waiting for the results. She states that she gets some chest discomfort after having the palpitations weekly but has a heart-racing sensation daily. She denies a history of PE or DVT. She denies any fever or cough. No new symptoms from last ED visit. No leg pain or leg swelling. No fever, cough, illness. Review of Systems Constitutional: Negative for fever. Respiratory: Negative for cough. Cardiovascular: Positive for chest pain and palpitations. All other systems reviewed and are negative. Allergies: No Known Allergies Medications: Elsi Hutchison Zoloft Past Medical History: Anxiety Chronic kidney disease Depressive disorder Eczema Gastroesophageal reflux disease Seizure Past Surgical History: surgery Family History: Brain tumor Social History: The patient presents alone. PCP: Marija Edgar APRN CNP Physical Exam Patient Vitals for the past 24 hrs: BP Temp Temp src Pulse Resp SpO2 08/29/20 1300 113/65 -- -- 74 -- -- 08/29/20 1245 118/60 -- -- 71 -- 98 % 08/29/20 1211 119/75 98.7 ??F (37.1 ??C) Oral 82 16 100 % Physical Exam General: Sitting up in bed Eyes: The pupils are equal and round Conjunctivae and sclerae are normal ENT: Wearing a mask Neck: Normal range of motion CV: Regular rate, regular rhythm Skin warm and well perfused Resp: Non labored breathing on room air No tachypnea No cough heard GI: Abdomen is soft, there is no rigidity No distension No rebound tenderness No abdominal tenderness MS: Normal muscular tone Skin: No rash or acute skin lesions noted Neuro: Awake, alert. Speech is normal and fluent. Face is symmetric. Moves all extremities equally Psych: Normal affect. Appropriate interactions. Emergency Department Course ECG: ECG taken at 1235, ECG read at 1241 Sinus rhythm Normal ECG Vent. rate 70 BPM FL interval 142 ms QRS duration 88 ms QT/QTc 388/419 ms P-R-T axes 38 55 33 No significant change when compared to EKG dated 08/16/20. Laboratory: CBC: WBC 7.7, HGB 10.7 (L), PLT 214, o/w WNL BMP: BUN 5 (L), o/w WNL (Creatinine: 0.48 (L)) Troponin(1240): <0.015 UA: Bacteria: few (A), Squamous Epithelial: 3 (H), Mucous: Present, Emergency Department Course: Reviewed: I reviewed the patient's nursing notes, vitals, past medical records, Care Everywhere. Assessments: 1248 I performed an exam of the patient as documented above. 1410 I checked on and updated the patient regarding results. Consults: [address] Wray of the Cardiology service regarding patient's presentation, findings,and plan of care. [address] Reyes of the OBGYN service regarding patient's presentation, findings, and plan of care. Disposition: Discharged to home. Impression & Plan Covid-19 Kim Clark was evaluated during a global COVID-19 pandemic, which necessitated consideration that the patient might be at risk for infection with the SARS-CoV-2 virus that causes COVID-19. Applicable protocols for evaluation were followed during the patient's care. COVID-19 was considered as part of the patient's evaluation. The plan for testing is: a test was obtained during this visit. Medical Decision Making: Kmi Clark is a 20 year old female who presented to the ED with palpitations. EKG shows sinus rhythm today. Reviewed the extensive blood work that she has had over last visits including negative d-dimer x2, normal TSH, negative troponin. Reviewed zio patch that showed one episode of SVT but then wa s in sinus tachycardia for rest of her reported events. Reports about weekly an episode of short lived palpitations where heart rate is very high so this may be the SVT. Then daily has episodes ofpalpitations and faster heart rate which is likely sinus tachycardia. Doubt PE with negative d-dimerx2 now, no hypoxia, no new symptoms and no symptoms of DVT. Labs unremarkable today. Spoke with cardiology who agreed with metoprolol 25 mg XL and follow-up with EP. Outpatient echocardiogram, EP follow-up ordered as outpatient. Spoke to OB clinic who also was okay with metoprolol and patient has follow-up OB appointment early September with ultrasound. Discussed with patient about side effects of decreased HR and BP and encouraged fluid hydration at home. UC pending after UA with few bacteria. No clearsymptoms of UTI right now so will hold off on antibiotics unless culture abnormal. Diagnosis: ICD-10-CM 1. SVT (supraventricular tachycardia) (H) I47.1 UA with Microscopic Follow-Up with Salesperson Flowers Echocardiogram Complete Urine Culture 2. Palpitations R00.2 Discharge Medications: New Prescriptions METOPROLOL SUCCINATE ER (TOPROL-XL) 25 MG 24 HR TABLET Take 1 tablet (25 mg) by mouth daily Scribe Disclosure: Satnam Denis, am serving as a scribe at 12:48 PM on 08/29/2020 to document services personally performed by Raul Perez MD based on my observations and the provider's statements to me. Raul Perez MD 08/29/201935 OPULPER OPERATOR documented in this encounter Plan of Treatment Upcoming Encounters Date Type Specialty Care Team Description 04/28/2022 Office Visit [facility] Anthony Doe, PABaldo [address] [place], [place] [phone] (Wo rk) 05/03/2022 Office Visit Dermatology Neil Kent M D [address] [place] [address] (Wo rk) 05/05/2022 Office Visit Optometry Yeny David, OD [address] [place], [place] [phone] (Wo rk) 05/11/2022 Virtual Visit Pharm D Diana Desir , [facility] [address] [place], [place] [address] (Wo rk) 05/14/2022 Office Visit Cardiology Livan Sharif MD [address] [facility] [address] [place], [place] [phone] (Wo rk) 05/31/2022 Office Visit [facility] Valery Veronica , [facility] [address] [place], [place] [address] (Wo rk) Scheduled Referrals Name Type Priority Associated Diagnoses Order S chedule Follow-Up with Referral Routine SVT Expected: Salesperson Flowers (supraventricular tachycardia) (H) (Approximat e), Expires: 08/29/2021 documented as of this encounter Procedures Procedure Name Priority Date/Time Associated Comments Diagnosis ROUTINE UA WITH STAT 08/29/2020 1:47 PM SVT Result s for this MICROSCOPIC HYDROPULPER OPERATOR (supraventricular procedure are in tachycardia) (H) the results section. URINE CULTURE Add-On 08/29/2020 1:47 PM SVT Results for this HYDROPULPER OPERATOR (supraventricular procedure are in tachycardia) (H) the results section. CBC WITH PLATELETS & STAT 08/29/2020 12:40 Res ults for this DIFFERENTIAL PM HYDROPULPER OPERATOR procedure are i n the results section. TROPONIN I Routine 08/29/2020 12:40 Results for this PM HYDROPULPER OPERATOR procedure are i n the results section. BASIC METABOLIC PANEL STAT 08/29/2020 12:40 Re sults for this PM HYDROPULPER OPERATOR procedure are i n the results section. EKG 12-LEAD, TRACING STAT 08/29/2020 12:35 Res ults for this ONLY PM HYDROPULPER OPERATOR procedure are i n the results section. documented in this encounter Results ECHO COMPLETE (09/05/2020 3:21 PM HYDROPULPER OPERATOR) Anatomical Region Laterality Modality Echocardiography Specimen (Source) Anatomical Collection Method Collection Time Re ceived Time Location / / Volume Laterality 09/05/2020 4:03 PM HYDROPULPER OPERATOR Narrative 09/05/2020 4:03 PM HYDROPULPER OPERATOR [id number]^LAINA^RAUL^ALINE [facility] Echocardiography [facility] [address] [place] [address] Name: KIM CLARK : 2000 Study Date: 09/05/2020 04:03 PM Age: 20 yrs Gender: Female Patient Location: [facility] Reason For Study: SVT Ordering Physician: RAUL PEREZ Referring Physician: Marija Edgar Performed By: Karlie Lomeli RDCS BSA: 2.0 m2 Height: 66 in Weight: 193 lb HR: 77 BP: 118/72 mmHg __ Procedure Complete Echo Adult. __ Interpretation Summary The visual ejection fraction is estimate d at 55%. The right ventricle is normal in structu re, function and size. There is trace to mild pulmonic valvular regurgitation. __ Left Ventricle The left ventricle is normal in size. Th ere is normal left ventricular wall thickness. Left ventricular systolic fun ction is normal. The visual ejection fraction is estimated at 55%. Left ventr icular diastolic function is normal. No regional wall motion abnormalities no maddie. Right Ventricle The right ventricle is normal in structu re, function and size. Atria Normal left atrial size. Right atrial si ze is normal. There is no color Doppler evidence of an atrial shunt. Mitral Valve The mitral valve is normal in structure and function. Tricuspid Valve The tricuspid valve is normal in structu re and function. There is trace tricuspid regurgitation. The right ventr icular systolic pressure is approximated at 14.8 mmHg plus the right atrial pressure. Aortic Valve The aortic valve is normal in structure and function. No aortic regurgitation is present. Pulmonic Valve The pulmonic valve is not well seen, but is grossly normal. There is trace to mild pulmonic valvular regurgitation. Vessels Normal size aorta. The inferior vena cav a was normal in size with preserved respiratory variability. Pericardium There is no pericardial effusion. Rhythm Sinus rhythm was noted. __ MMode/2D Measurements & Calculations IVSd: 1.0 cm LVIDd: 4.7 cm LVIDs: 3.3 cm LVPWd: 1.1 cm IVC diam: 1.9 cm FS: 30.5 % LV mass(C)d: 178.4 grams LV mass(C)dI: 90.5 grams/m2 Ao root diam: 2.9 cm LA dimension: 3.6 cm asc Aorta Diam: 2.4 cm LA/Ao: 1.2 LA Volume Index (BP): 32.5 ml/m2 RWT: 0.45 Doppler Measurements & Calculations MV E max anuel: 96.6 cm/sec MV A max anuel: 54.0 cm/sec MV E/A: 1.8 MV max P.8 mmHg MV mean P.5 mmHg MV V2 VTI: 23.0 cm MV dec slope: 454.9 cm/sec2 MV dec time: 0.21 sec PA acc time: 0.10 sec TR max anuel: 192.1 cm/sec TR max P.8 mmHg E/E': 6.2 Peak E' Anuel: 15.5 cm/sec __ Report approved by: Jonathan Petty 09/05/2020 04:04 PM Procedure Note Giovani Miner MD - 09/05/2020Fo rmatting of this note might be different from the original. [id number]^LAINA^RAUL^ALINE [facility] E[facility] [address] [place] [address] Name: KIM CLARK : 2000 Study Date: 09/05/2020 04:03 PM Age: 20 yrs Gender: Female Patient Location: [facility] Reason For Study: SVT Ordering Physician: RAUL PEREZ Referring Physician: Marija Edgar Performed By: Karlie Lomeli RDCS BSA: 2.0 m2 Height: 66 in Weight: 193 lb HR: 77 BP: 118/72 mmHg __ Procedure Complete Echo Adult. __ Interpretation Summary The visual ejection fraction is estimate d at 55%. The right ventricle is normal in structu re, function and size. There is trace to mild pulmonic valvular regurgitation. __ Left Ventricle The left ventricle is normal in size. Th ere is normal left ventricular wall thickness. Left ventricular systolic fun ction is normal. The visual ejection fraction is estimated at 55%. Left ventr icular diastolic function is normal. No regional wall motion abnormalities no maddie. Right Ventricle The right ventricle is normal in structu re, function and size. Atria Normal left atrial size. Right atrial si ze is normal. There is no color Doppler evidence of an atrial shunt. Mitral Valve The mitral valve is normal in structure and function. Tricuspid Valve The tricuspid valve is normal in structu re and function. There is trace tricuspid regurgitation. The right ventr icular systolic pressure is approximated at 14.8 mmHg plus the right atrial pressure. Aortic Valve The aortic valve is normal in structure and function. No aortic regurgitation is present. Pulmonic Valve The pulmonic valve is not well seen, but is grossly normal. There is trace to mild pulmonic valvular regurgitation. Vessels Normal size aorta. The inferior vena cav a was normal in size with preserved respiratory variability. Pericardium There is no pericardial effusion. Rhythm Sinus rhythm was noted. __ MMode/2D Measurements & Calculations IVSd: 1.0 cm LVIDd: 4.7 cm LVIDs: 3.3 cm LVPWd: 1.1 cm IVC diam: 1.9 cm FS: 30.5 % LV mass(C)d: 178.4 grams LV mass(C)dI: 90.5 grams/m2 Ao root diam: 2.9 cm LA dimension: 3.6 cm asc Aorta Diam: 2.4 cm LA/Ao: 1.2 LA Volume Index (BP): 32.5 ml/m2 RWT: 0.45 Doppler Measurements & Calculations MV E max anuel: 96.6 cm/sec MV A max anuel: 54.0 cm/sec MV E/A: 1.8 MV max P.8 mmHg MV mean P.5 mmHg MV V2 VTI: 23.0 cm MV dec slope: 454.9 cm/sec2 MV dec time: 0.21 sec PA acc time: 0.10 sec TR max anuel: 192.1 cm/sec TR max P.8 mmHg E/E': 6.2 Peak E' Anuel: 15.5 cm/sec __ Report approved by: Jonathan Petty 09/05/2020 04:04 PM Raul Perez MD CV ECHO ORDERABLES Urine Culture (08/29/2020 1:47 PM HYDROPULPER OPERATOR) Component Value Ref Test Analysis Performed At [facility] Method Time Signature Specimen Midstream Urine INFECTIOUS Description DISEASES [facility], [facility] Special Specimen 08/29/2020 INFECTIOUS Requests received in 5:33 PM HYDROPULPER OPERATOR DISEASES preservative DIAGNOSTIC LABORATORY, [facility] Culture Micro No growth 08/30/2020 INFECTIOUS 5:34 PM [facility] DISEASES DIAGNOSTIC LABORATORY, [facility] Specimen (Source) Anatomical Collection Method Collection Time Re ceived Time Location / / Volume Laterality Examination of 08/29/2020 1:47 08/29/2020 2:20 midstream urine PM HYDROPULPER OPERATOR PM HYDROPULPER OPERATOR specimen (procedure) Raul Perez MD LAB - MICRO GENERAL ORDERABL ES Performing Organization Address City/State/ZIP Code Phon e Number INFECTIOUS DISEASES DIAGNOSTIC [address] [facility] [place] [address] LABORATORY, [facility] (ABNORMAL) UA with Microscopic (08/29/2020 1:47 PM HYDROPULPER OPERATOR) [facility] Method Time Signature Color Urine Light Yellow 08/29/2020 [facility] 2:14 PM [facility] Appearance Urine Clear 08/29/2020 [facility] 2:14 PM [facility] Glucose Urine Negative NEG^Negat 08/29/2020 [facility] shyam mg/dL 2:14 PM [facility] Bilirubin Urine Negative NEG^Negat 08/29/2020 [facility] shyam 2:14 PM [facility] Ketones Urine Negative NEG^Negat 08/29/2020 [facility] shyam mg/dL 2:14 PM [facility] Specific [place] 1.014 1.003 - 08/29/2020 [facility] Urine 1.035 2:14 PM [facility] Blood Urine Negative NEG^Negat 08/29/2020 [facility] shyam 2:14 PM [facility] pH Urine 6.5 5.0 - 7.0 08/29/2020 [facility] pH 2:14 PM [facility] Protein Albumin Negative NEG^Negat 08/29/2020 [facility] Urine shyam mg/dL 2:14 PM [facility] Urobilinogen Normal 0.0 - 2.0 08/29/2020 [facility] mg/dL mg/dL 2:14 PM [facility] Nitrite Urine Negative NEG^Negat 08/29/2020 [facility] shyam 2:14 PM [facility] Leukocyte Negative NEG^Negat 08/29/2020 [facility] Esterase Urine shyam 2:14 PM [facility] Source Midstream 08/29/2020 [facility] Urine 1:47 PM [facility] WBC Urine 3 0 - 5 08/29/2020 [facility] /HPF 2:14 PM [facility] RBC Urine 1 0 - 2 08/29/2020 [facility] /HPF 2:14 PM [facility] Bacteria Urine Few (A) NEG^Negat 08/29/2020 [facility] shyam /HPF 2:14 PM [facility] Squamous 3 (H) 0 - 1 08/29/2020 [facility] Epithelial /HPF /HPF 2:14 PM [facility] Mucous Urine Present (A) NEG^Negat 08/29/2020 [facility] shyam /LPF 2:14 PM [facility] Specimen (Source) Anatomical Collection Method Collection Time Re ceived Time Location / / Volume Laterality Examination of 08/29/2020 1:47 08/29/2020 1:59 midstream urine PM HYDROPULPER OPERATOR PM HYDROPULPER OPERATOR specimen (procedure) Raul Perez MD LAB - URINE ORDERABLES Performing Organization Address [facility] [address] [facility] Phon e Number M [facility] [address] [place], [place] [address] [place] [address] [address] [place], [place] [address], [facility] [phone] Troponin I (08/29/2020 12:40 PM HYDROPULPER OPERATOR) athologist Signature Troponin I ES <0.015 0.000 - 08/29/2020 [place] 0.045 ug/L 1:49 PM [facility] Comment: The 99th percentile for upper reference range is 0.045 ug/L. ??Troponin values in the range of 0.045 - 0.120 ug/L may b e associated with risks of adverse clinical events. Specimen Anatomical Collection Method Collection Time Receive d Time (Source) Location / / Volume Laterality 08/29/2020 12:40 08/29/2020 PM HYDROPULPER OPERATOR 12:46 PM HYDROPULPER OPERATOR Raul Perez MD LAB - BLOOD ORDERABLES Performing Organization Address [facility] [address]/[facility] Phon e Number M [facility] [address] [place], [place] [address] [facility] [address] [place], [place] [address] [facility] [phone] (ABNORMAL) Basic metabolic panel (08/29/2020 12:40 PM [facility]) P athologist Signature Sodium 136 133 - 144 08/29/2020 [facility] mmol/L 12:59 PM [facility] Potassium 4.8 3.4 - 5.3 08/29/2020 [facility] mmol/L 12:59 PM [facility] Comment: Specimen slightly hemolyzed, po tassium may be falsely elevated Chloride 107 94 - 109 mmol/L 08/29/2020 12:59 PM [facility] Carbon Dioxide 24 20 - 32 mmol/L 08/29/2020 1:02 PM [facility] Anion Gap 5 3 - 14 mmol/L 08/29/2020 1:02 PM [facility] Glucose 83 70 - 99 mg/dL 08/29/2020 1:02 PM [facility] Urea Nitrogen 5 (L) 7 - 30 mg/dL 08/29/2020 1:02 PM [facility] Creatinine 0.48 (L) 0.52 - 1.04 mg/dL 08/29/2020 1:02 PM [facility] GFR Estimate >90 >60 08/29/2020 1:02 PM [facility] mL/min/{1.73_m2} [facility] Comment: Non GFR Calc Starting 06/27/2018, serum creatinine ba sed estimated GFR (eGFR) will be calculated using the Chronic Kidney Dise [facility] Epidemiology Collaboration (CKD-EPI) equation. GFR Estimate If >90 >60 mL/min/{1.73_m2} 08/29/2020 1: 02 PM [facility] Comment: GFR Calc Starting 06/27/2018, serum creatinine ba sed estimated GFR (eGFR) will be calculated using the Chronic Kidney Dise [facility] Epidemiology Collaboration (CKD-EPI) equation. Calcium 8.8 8.5 - 10.1 mg/dL 08/29/2020 1:[address] [facility] Specimen Anatomical Collection Method Collection Time Receive d Time (Source) Location / / Volume Laterality Blood specimen 08/29/2020 12:40 (specimen) PM HYDROPULPER OPERATOR 12:46 PM HYDROPULPER OPERATOR Raul Perez MD LAB - BLOOD ORDERABLES Performing Organization Address City/State/ZIP Code Phon e Number M [facility] [address] [place] [address] [facility] [address] [place], [place] [address], [facility] [phone] [facility] [address] [facility] [place] [address], [facility] [phone] HOSPITAL (ABNORMAL) CBC with platelets differential (08/29/2020 12:40 PM HYDROPULPER OPERATOR) [facility] Method Time Signature WBC 7.7 4.0 - 08/29/2020 [facility] 11.0 12:49 PM [facility] 10e9/L [facility] RBC Count 4.02 3.8 - 5.2 08/29/2020 [facility] 10e12/L 12:49 PM [facility] Hemoglobin 10.7 (L) 11.7 - 08/29/2020 [facility] 15.7 g/dL 12:49 PM [facility] Hematocrit 33.1 (L) 35.0 - 08/29/2020 [facility] 47.0 % 12:49 PM [facility] MCV 82 78 - 100 08/29/2020 [facility] fl 12:49 PM [facility] MCH 26.6 26.5 - 08/29/2020 [facility] 33.0 pg 12:49 [facility] MCHC 32.3 31.5 - 08/29/2020 [facility] 36.5 g/dL 12:49 PM [facility] RDW 13.1 10.0 - 08/29/2020 [facility] 15.0 % 12:49 PM [facility] Platelet Count 214 150 - 450 08/29/2020 [facility] 10e9/L 12:49 PM [facility] Diff Method Automated 08/29/2020 [facility] Method 12:49 PM [facility] % Neutrophils 67.9 % 08/29/2020 [facility] 12:49 PM [facility] % Lymphocytes 22.8 % 08/29/2020 [facility] 12:49 PM [facility] % Monocytes 5.3 % 08/29/2020 [facility] 12:49 PM [facility] % Eosinophils 3.3 % 08/29/2020 [facility] 12:49 PM [facility] % Basophils 0.3 % 08/29/2020 [facility] 12:49 PM [facility] % Immature 0.4 % 08/29/2020 [facility] Granulocytes 12:49 PM [facility] Nucleated RBCs 0 0 /100 08/29/2020 [facility] 12:49 PM [facility] [facility] Absolute 5.2 1.6 - 8.3 08/29/2020 [facility] Neutrophil 10e9/L 12:49 PM [facility] Absolute 1.8 0.8 - 5.3 08/29/2020 [facility] Lymphocytes 10e9/L 12:49 PM [facility] Absolute 0.4 0.0 - 1.3 08/29/2020 [facility] Monocytes 10e9/L 12:49 [facility] Absolute 0.3 0.0 - 0.7 08/29/2020 [facility] Eosinophils 10e9/L 12:49 PM [facility] Absolute 0.0 0.0 - 0.2 08/29/2020 [facility] Basophils 10e9/L 12:49 PM [facility] Abs Immature 0.0 0 - 0.4 08/29/2020 [facility] Granulocytes 10e9/L 12:49 PM [facility] Absolute 0.0 08/29/2020 [facility] Nucleated RBC 12:49 PM [facility] Specimen Anatomical Collection Method Collection Time Receive d Time (Source) Location / / Volume Laterality Blood specimen 08/29/2020 12:40 1 (specimen) PM HYDROPULPER OPERATOR 12:46 PM HYDROPULPER OPERATOR Raul Perez MD LAB - BLOOD ORDERABLES Performing Organization Address City/State/ZIP Code Phon e Number M [facility] [address] [place], [place] [address] [facility] [address] [place] [address] [facility] [phone] EKG 12-lead, tracing only (08/29/2020 12:35 PM HYDROPULPER OPERATOR) [facility] Method Time Signature Interpretation ECG Click View RADIOLOGY Image link RESULTS to view waveform and result Specimen (Source) Anatomical Collection Method Collection Time Re ceived Time Location / / Volume Laterality 08/29/2020 12:35 PM HYDROPULPER OPERATOR Raul Perez MD ECG ORDERABLES Performing Organization Address City/State/ZIP Code Phon e Number RADIOLOGY RESULTS documented in this encounter Visit Diagnoses Diagnosis SVT (supraventricular tachycardia) (H) - Primary Other specified cardiac dysrhythmias Palpitations SVT (supraventricular tachycardia) (H) Other specified cardiac dysrhythmias documented in this encounter Additional Health Concerns Assessment Noted Time PHQ-9 Depression Total Score: 9 06/25/2020 7:04 AM HYDROPULPER OPERATOR documented as of this encounter Care Teams Computer Assistant Relationship Specialty Start Date End Date Marija Edgar APRN PCP - General Nurse Practitioner 04/30/20 ALCOHOLISM WORKER [address] [place], [place] [phone] Lita Oseguera Personal Advocate & 02/28/20 Liaison (PAL) Chanelle Mccann Assigned OBGYN Provider 05/02/20 05/09/21 [place] [address] 34[facility] [address] [place], [place] [address] Kyara De La Fuente RN Specialty Care Neurology 06/04/20 03/05/21 Coordinator Marija Edgar APRN Assigned PCP 06/08/20 ALCOHOLISM WORKER [address] [place], [place] [phone] Mynor Broussard MD Assigned Surgical 06/01/20 11/28/21 [address] [facility] Provider [address] [place], [place] [address] Melody Dotson Neuroscience 06/04/20 MD Keisha Provider [address] [place], [place] [address] Stacey Briones, REAL ESTATE ACCOUNT EXECUTIVE Lead Ammunition Components Inspector Primary Care - CC 08/11/20 12/30/20 Lesley Moody, Community Health Worker 08/11/20 10/01/20 [place] documented as of this encounter
--- OUTSIDE RECORDS SUMMARY | 2022-04-28 01:19 | XMS_ITS | Encounter Summary ---
:2000 Author Organization [place] Address [address] [place] [address] Care Team Providers Name Role Phone Lita Oseguera Unavailable Unavailable Marija Edgar APRN ROLL CHANGER Primary Care Provider [phone] Chanelle Mccann APRN CNM Unavailable + Kyara De La Fuente RN Unavailable Marija Edgar APRN ROLL CHANGER Unavailable Mynor Broussard MD Unavailable Keisha Dotson MD Unavailable Stacey Briones MANAGER MANAGING Unavailable Lesley Moody MA Unavailable Encounter Details Date Type Department Care Team Description 08/30/2020 Travel Social History Tobacco Use Types Packs/Day [...] How often do you attend sabianist or jew services? Never 09/22/2021 Do you [...] been in contact with No / Unsure 08/30/2020 3:05 PM OIL DISTRIBUTOR someone who was confirmed or suspected to have Coronavirus / COVID-19? documented as of this encounter Plan of Treatment Upcoming Encounters Date Type Specialty Care Team Description 04/28/2022 Office Visit Family Practice Anthony Doe, ROVERTO [address] [place], [place] [phone] (Wo rk) 05/03/2022 Office Visit Dermatology Neil Kent M D [address] [place], [place] [address] (Wo rk) 05/05/2022 Office Visit Optometry Yeny David, OD [address] [facility] [address] [place] [phone] (Jefferson carlson) 05/11/2022 Virtual Visit Pharm D Diana Desir , [facility] [address] [place], [place] [address] (Wo rk) 05/14/2022 Office Visit Cardiology Livan Sharif MD [address] [facility] [address] [facility] [address] [place] [address] (Wo rk) 05/31/2022 Office Visit Family Practice Valery Veronica , PAUcheC [address] [place], [place] [address] (Wo rk) documented as of this encounter Visit Diagnoses Not on filedocumented in this encounter Additional Health Concerns Infection Onset Date Last Indicated Resolved Time Rule Out COVID-19 08/30/2020 08/30/2020 08/30/2020 5:0 5 PM OIL DISTRIBUTOR Assessment Noted Time PHQ-9 Depression Total Score: 9 06/25/2020 7:04 AM OIL DISTRIBUTOR documented as of this encounter Care Teams Photo Print Specialist Relationship Specialty Start Date End Date Marija Edgar APRN PCP - General Nurse Practitioner 04/30/20 ROLL CHANGER [address] [place], [place] [phone] Lita Oseguera Personal Advocate & 02/28/20 Liaison (PAL) Chanelle Mccann Assigned OBGYN Provider 05/02/20 05/09/21 [place] [address] [address] [facility] 200 [place] [address] Kyara De La Fuente, VJ Specialty Care Neurology 06/04/20 03/05/21 Coordinator Marija Edgar APRN Assigned PCP 06/08/20 ROLL CHANGER [address] [place], [place] [phone] Mynor Broussard MD Assigned Surgical 06/01/20 11/28/21 [address] Provider [address] [place], [place] [address] Melody Dotson Neuroscience 06/04/20 MD Keisha Provider [address] [place], [place] [address] Stacey Briones, MANAGER MANAGING Lead Oil Gauger Primary Care - CC 08/11/20 12/30/20 Lesley Moody, Community Health Worker 08/11/20 10/01/20 [place] documented as of this encounter
--- OUTSIDE RECORDS SUMMARY | 2022-04-28 01:19 | XMS_ITS | Encounter Summary ---
:2000 Author Organization [place] Address [facility] [place] [address] Care Team Providers Name Role Phone Lita Oseguera Unavailable Unavailable Marija Edgar APRN FOAM RUBBER MIXER Primary Care Provider [phone] Chanelle Mccann APRN CNM Unavailable + Kyara De La Fuente RN Unavailable Marija Edgar APRN FOAM RUBBER MIXER Unavailable Mynor Broussard MD Unavailable Keisha Dotson MD Unavailable Stacey Briones EDUCATIONAL PARAPROFESSIONAL Unavailable Lesley Moody MA Unavailable Mary Mejia Unavailable Unavailable Encounter Details Date Type Department Care Team Description 09/03/2020 Telephone [facility] Kathryn David [facility] [place] [address] [address] [facility] [address] [place] [address] [place] [address] (Wo rk) Social History Tobacco [...] week 09/22/2021 How often do you attend rastafari or christianity services? Never 09/22/2021 Do you belong to any clubs or organizations such as No 09/22/2021 rastafari groups, unions, fraternal or athletic groups, or [...] with No / Unsure 09/03/2020 12:11 PM ENVIRONMENTAL HEALTH AND SAFETY MANAGER someone who was confirmed or suspected to have Coronavirus / COVID-19? documented as of this encounter Miscellaneous Notes Telephone Encounter - Matti David MD - 09/03/2020 5:20 PM CST Called pt to discuss ct scan of her chest and whether to do the test. Left message to call back to further discuss. RONMENTAL HEALTH AND SAFETY MANAGER Telephone Encounter - Keenan Abrams MA - 09/03/2020 5:13 PM CST Called patient to correspond scheduling her Chest CT at [facility] recommended by Dr. Matti David. No answer.. LMTCB Keenan AdamSophia Abrams MA on 09/03/2020 at 5:17 PM RONMENTAL HEALTH AND SAFETY MANAGER documented in this encounter Plan of Treatment Upcoming Encounters Date Type Specialty Care Team Description 04/28/2022 Office Visit Family Practice Anthony Deo, PAUcheC [address] [place], [place] [phone] (Wo rk) 05/03/2022 Office Visit Dermatology Neil Kent M D [address] [place], [place] [address] (Wo rk) 05/05/2022 Office Visit Optometry Yeny David, OD [address] [place], [place] [phone] (Wo rk) 05/11/2022 Virtual Visit Pharm D Diana Desir , [facility] [address] [place], [place] [address] (Wo rk) 05/14/2022 Office Visit Cardiology Livan Sharif MD [address] , [facility] [address] [place], [place] [address] (Wo rk) 05/31/2022 Office Visit Family [facility] Valery Veronica PAUcheC [address] [place], [place] [address] (Wo rk) documented as of this encounter Visit Diagnoses Not on filedocumented in this encounter Additional Health Concerns Assessment Noted Time PHQ-9 Depression Total Score: 9 06/25/2020 7:04 AM ENVIRONMENTAL HEALTH AND SAFETY MANAGER documented as of this encounter Care Teams Brewery Pumper Relationship Specialty Start Date End Date Marija Edgar APRN PCP - General Nurse Practitioner 04/30/20 FOAM RUBBER MIXER [address] [place], [place] [phone] Lita Oseguera Personal Advocate & 02/28/20 Liaison (PAL) Chanelle Mccann Assigned OBGYN Provider 05/02/20 05/09/21 [place] [address] [place], [facility] [address] [place], [place] [address] Kyara De La Fuente, VJ Specialty Care Neurology 06/04/20 03/05/21 Coordinator Marija Edgar APRN Assigned PCP 06/08/20 FOAM RUBBER MIXER [address] [place], [place] [phone] Mynor Broussard MD Assigned Surgical 06/01/20 11/28/[address] [facility] Provider 500 [place], [place] [address] Keisha Dotson, Assigned Neuroscience 06/04/20 MD Provider [address]09 [place] [address] Stacey Briones, EDUCATIONAL PARAPROFESSIONAL Lead Laboratory Equipment Cleaner Primary Care - CC 08/11/20 12/30/20 Lesley Moody, Community Health Worker 08/11/20 10/01/20 [place] Mary Mejia Financial Resource 09/02/2009/09 Worker documented as of this encounter
--- OUTSIDE RECORDS SUMMARY | 2022-04-28 01:19 | XMS_ITS | Encounter Summary ---
:2000 Author Organization [place] Address [address] [place] [address] Care Team Providers Name Role Phone Lita Oseguera Unavailable Unavailable Marija Edgar APRN CAREER DEVELOPMENT CONSULTANT Primary Care Provider [phone] Chanelle Mccann AERIAL HURRICANE HUNTER CNM Unavailable + Kyara De La Fuente RN Unavailable Marija Edgar APRN CAREER DEVELOPMENT CONSULTANT Unavailable Mynor Broussard MD Unavailable Keisha Dotson MD Unavailable Stacey Briones EQUIPMENT LEAD Unavailable Lesley Moody MA Unavailable Reason for Visit Reason Comments Chest Pain Encounter Details Date Type Department Care Team Description 08/29/[address] [facility] Apolinar Grande MD Palpitations Emergency Dept [facility] [address] [place] [address] [facility] [phone] [place], [place] [phone] (Wo rk) Social History Tobacco Use Types [...] How often do you attend religious or baptism services? Never 09/22/2021 Do you [...] in contact with No / Unsure 08/29/2020 8:11 PM HEM MARKER someone who was confirmed or suspected to have Coronavirus / COVID-19? documented as of this encounter Last Filed Vital Signs Vital Sign Reading Time Taken Comments Blood Pressure 134/83 08/29/2020 8:18 PM HEM MARKER Pulse 96 08/29/2020 8:18 PM HEM MARKER Temperature 37.9 ??C (100.2 ??F) 08/29/2020 8:18 PM HEM MARKER Respiratory Rate 20 08/29/2020 8:18 PM HEM MARKER Oxygen Saturation 97% 08/29/2020 8:18 PM HEM MARKER Inhaled Oxygen Concentration - - Weight 87.1 kg (192 lb) 08/29/2020 8:18 PM HEM MARKER Height 167.6 cm (5' 6) 08/29/2020 8:18 PM HEM MARKER Body Mass Index 30.99 08/29/2020 8:18 PM HEM MARKER documented in this encounter Discharge Instructions Discharge InstructionsApolinar Grande MD - 08/29/2020 8:58 PM HEM MARKER Follow-up with cardiology and MARINE EQUIPMENT TEST ENGINEER as previously instructed. Please start your medication as previously prescribed. Please return to the emergency department as needed for new or worsening symptoms including fainting, worsening shortness of breath or chest pain, vomiting and unable to keep eating down, any other concerning symptoms. MARKER documented in this encounter Medications at Time [...] documented as of this encounter ED Notes Anni Sommers RN - 08/29/2020 8:13 PM CST Pt presents for evaluation of left sided chest pain that started 30-40 minutes ago. Pt was sitting down when it started. [place] super hot, then her heart started racing. Pt was just seen in the ED today for same pain. Pt recently had a zio patch on, which was removed 08/18/20. Per pt, pt had episodes ofSVT when zio patch was on. Was started on metoprolol today, but hasn't been able to fill it yet. Pt is currently 18 weeks . This is the second episode of an increased heart rate today. Pt tearful in triage. MARKER Apolinar Grande MD - 08/29/2020 8:11 PM CST History Chief Complaint: Chest Pain The history is provided by the patient. Kim Johnson is a 20 year old female that is and is 18 weeks , who presents with chest pain. Per chart review, the patient was here earlier today for chest pain and palpitations, and wasrecently set up with a Zio patch that had been taken off on 08/16/20 and noted to have an instance of SVT while monitored and had one earlier today. Tonight, the patient notes that she has had this goingon for 2 years. She states that she had multiple instances of episodes throughout the day and that they don't last for very long. She reports that while sitting on the couch she has chest pain and feltincreasingly hot and her heart felt like it was racing and that her episode lasted around 20 minutes. She states that she was unable to get her metoprolol filled and that she is anxious and stressed about the situation and her being . She reports that she gets anxious after her episodes and that this is different than her anxiety. 08/29/20 ED visit Labs: CBC: WBC 7.7, HGB 10.7 (L), PLT 214, o/w WNL BMP: BUN 5 (L), o/w WNL (Creatinine: 0.48 (L)) Troponin(1240): <0.015 UA: Bacteria: few (A), Squamous Epithelial: 3 (H), Mucous: Present Review of Systems Cardiovascular: Positive for chest pain and palpitations. All other systems reviewed and are negative. Allergies: No known drug allergies Medications: Keppra Lamictal Zoloft Sertraline Metoprolol Omeprazole Prenatals Past Medical History: Anxiety Chronic kidney disease Depressive disorder Eczema Gastroesophageal reflux disease Seizure Right and left ureteral stone Past Surgical History: GI surgery Family History: Heart disease Brain tumor, sister Social History: PCP: Marija Edgar APRN CAREER DEVELOPMENT CONSULTANT Presents to the ED alone Former smoker No alcohol. No drug use. Physical Exam Patient Vitals for the past 24 hrs: BP Temp Temp src Pulse Resp SpO2 Height Weight 08/29/202017 134/83 100.2 ??F (37.9 ??C) Oral 96 20 97 % 1.676 m (5' 6) 87.1 kg (192 lb) Physical Exam Constitutional: Well developed, nontox appearance Head: Atraumatic. Neck: no stridor Eyes: no scleral icterus Cardiovascular: RRR, 2+ bilat radial pulses Pulmonary/Chest: nml resp effort Abdominal: ND, soft, NT, no rebound or guarding Ext: Warm, well perfused, no edema Neurological: A&O, symmetric facies, moves ext x4 Skin: Skin is warm and dry. Psychiatric: Tearful, mildly anxious Nursing note and vitals reviewed. Emergency Department Course ECG: ECG taken at 2023, ECG read at 2025 Normal sinus rhythm Normal ECG No significant changes noted compared to prior EKG dated 08/29/20 Rate 82 bpm. MI interval 128 ms. QRS duration 88 ms. QT/QTc 356/415 ms. P-R-T axes 51 47 21. Emergency Department Course: Reviewed: I reviewed the patient's nursing notes, vitals, past medical records, Care Everywhere. Assessments: 2029 I performed an assessment and examination of the patient as noted above. 2104 Findings and plan explained to the Patient. Patient discharged home with instructions regardingsupportive care, medications, and reasons to return. The importance of close follow-up was reviewed. Interventions: 2101 Metoprolol succinate, 25 mg, PO Disposition: The patient was discharged to home. Impression & Plan Medical Decision Making: Kim Johnson is a 20 year old female presenting w/ palpitations, transient chest pain now resolved ?? Patient was seen earlier today for similar symptoms and had extensive work-up, cardiology and OB/GYNconsult via telephone. Doubt ACS, PE, dissection, pneumothorax given previous work-up. EKG shows no acute ischemic findings and significant for normal sinus rhythm without evidence of dysrhythmia or tac hyarrhythmia. No findings consistent with WPW on her EKG as well. Vital signs are within normal limits despite a mildly elevated temperature at does not meet criteria for fever. Patient has yet to fillher Toprol therefore her first dose was ordered in the emergency department which the patient was initially agreeable to. She subsequently decided that she would prefer to be discharged and refused hermedication. I do not feel further blood work or imaging is indicated at this time given her previouswork-up. Recommendations given regarding follow up with cardiology and OBGYN and return to the emergency department as needed for new or worsening symptoms. Pt counseled on all results, disposition anddiagnosis. They are understanding and agreeable to plan. Patient discharged in stable condition. Covid-19 Kim Johnson was evaluated during a global COVID-19 pandemic, which necessitated consideration that the patient might be at risk for infection with the SARS-CoV-2 virus that causes COVID-19. Applicable protocols for evaluation were followed during the patient's care. COVID-19 was considered as part of the patient's evaluation. The plan for testing is: a test was no obtained at today's visit. Diagnosis: ICD-10-CM 1. Palpitations R00.2 Scribe Disclosure: Brea Denis, am serving as a scribe at 8:25 PM on 08/29/2020 to document services personally performed by Apolinar Grande MD based on my observations and the provider's statements to me. Apolinar Grande MD 08/30/20 1228 Apolinar Grande MD 08/30/20 1517 Apolinar Grande MD 08/30/20 1518 MARKER documented in this encounter Plan of Treatment Upcoming Encounters Date Type Specialty Care Team Description 04/28/2022 Office Visit Family [facility] Anthony Doe, PAUcheC [address] [place], [place] [phone] (Wo rk) 05/03/2022 Office Visit Dermatology Neil Kent M D [address] [place], [place] [phone] (Wo rk) 05/05/2022 Office Visit Optometry Yeny David, OD [address] [facility] [place], [place] [phone] (Wo rk) 05/11/2022 Virtual Visit Pharm D Diana Desir , [facility] [address] [place], [place] [address] (Wo rk) 05/14/2022 Office Visit Cardiology Livan Sharif MD [address] [facility], [facility] [address] [place], [place] [address] (Wo rk) 05/31/2022 Office Visit [facility] Valery Veronica PAUcheC [address] [place], [place] [address] (Wo rk) documented as of this encounter Procedures Procedure Name Priority Date/Time Associated Diagnosis Comme nts EKG 12-LEAD, STAT 08/29/2020 8:24 PM Results f or this TRACING ONLY HEM MARKER procedure are i n the results section. documented in this encounter Results EKG 12-lead, tracing only (08/29/2020 8:24 PM HEM MARKER) Patholo gist Method Time Signature Interpretation ECG Click View RADIOLOGY Image link RESULTS to view waveform and result Specimen (Source) Anatomical Collection Method Collection Time Re ceived Time Location / / Volume Laterality 08/29/2020 8:24 PM HEM MARKER Apolinar Grande MD ECG ORDERABLES Performing Organization Address City/State/ZIP Code Phon e Number RADIOLOGY RESULTS documented in this encounter Visit Diagnoses Diagnosis Palpitations documented in this encounter Administered Medications Inactive Administered Medications - up to 3 most recent administrations Medication Order MAR Action Action Date Dose Rate Site metoprolol succinate ER (TOPROL-XL) Given 08/29/2020 9:02 PM HEM MARKER 25 mg 24 hr tablet 25 mg 25 mg, Oral, ONCE, On Tue08/29/20 at 2039, For 1 dose, DO NOT CRUSH. Tablet may be split in half along score line. documented in this encounter Active and Recently Administered Medications Times are shown in HEM MARKER. Scheduled Medication Order 08/27/2020 08/28/2020 08/29/2020 metoprolol succinate ER (TOPROL-XL) 24 hr tablet 25 mg (COMPLETE D) 2101 (Given - Provider: Samantha Rodgers RN) 25 mg, Oral, ONCE, Tue08/29/20 at 2039, For 1 dose, DO NOT CRUSH. Tablet may be split in half along score line. documented in this encounter Additional Health Concerns Assessment Noted Time PHQ-9 Depression Total Score: 9 06/25/2020 7:04 AM HEM MARKER documented as of this encounter Care Teams Director Of Patient Financial Services Relationship Specialty Start Date End Date Marija Edgar APRN PCP - General Nurse Practitioner 04/30/20 CAREER DEVELOPMENT CONSULTANT [address] [place] [address] Lita Oseguera Personal Advocate & 02/28/20 Liaison (PAL) Chanelle Mccann Assigned OBGYN Provider 05/02/20 05/09/21 ARLENE Mooney CNM [address] [address] [facility], [facility] [address] [place] [address] Kyara De La Fuente, VJ Specialty Care Neurology 06/04/20 03/05/21 Coordinator Marija Edgar APRN Assigned PCP 06/08/20 CAREER DEVELOPMENT CONSULTANT [address] [place], [place] [phone] Mynor Broussard MD Assigned Surgical 06/01/20 11/28/21 [address] [facility] Provider [address] [place], [place] [address] Mauri, Melody Neuroscience 06/04/20 MD Keisha Provider [address] [place] [address] Stacey Briones, EQUIPMENT LEAD Lead Utility Pipe Layer Primary Care - CC 08/11/20 12/30/20 Lesley Moody, Community Health Worker 08/11/20 10/01/20 [place] documented as of this encounter
--- OUTSIDE RECORDS SUMMARY | 2022-04-28 01:19 | XMS_ITS | Encounter Summary ---
:2000 Author Organization [facility] Address [address] [place] [address] Care Team Providers Name Role Phone Lita Oseguera Unavailable Unavailable Marija Edgar APRN ENGRAVER OPTICAL FRAMES Primary Care Provider [phone] Chanelle Mccann APRN CNM Unavailable + Kyara De La Fuente RN Unavailable Marija Edgar APRN ENGRAVER OPTICAL FRAMES Unavailable Mynor Broussard MD Unavailable Keisha Dotson MD Unavailable Stacey Briones CAMPGROUND HAND Unavailable Lesley Moody MA Unavailable Encounter Details Date Type Department Care Team Description 08/29/2020 Travel Social History Tobacco Use Types Packs/Day [...] How often do you attend voodoo or mormonism services? Never 09/22/2021 Do you [...] with No / Unsure 08/29/2020 8:11 PM RECLAIMER someone who was confirmed or suspected to have Coronavirus / COVID-19? documented as of this encounter Plan of Treatment Upcoming Encounters Date Type Specialty Care Team Description 04/28/2022 Office Visit Family Practice Anthony Doe, [place] [address] [place], [place] [phone] (Wo rk) 05/03/2022 Office Visit Dermatology Neil Kent M D [address] [place], [place] [address] (Wo rk) 05/05/2022 Office Visit Optometry Yeny David, OD [address] [place] [id number] (Jefferson carlson) 05/11/2022 Virtual Visit Pharm D Diana Desir , [facility] [address] [place], [place] [address] (Wo rk) 05/14/2022 Office Visit Cardiology Livan Sharif MD [address], [facility] [address] [place] [address] (Wo rk) 05/31/2022 Office Visit Family Practice Valery Veronica , PA-C [address] [place] [address] (Wo rk) documented as of this encounter Visit Diagnoses Not on filedocumented in this encounter Additional Health Concerns Assessment Noted Time PHQ-9 Depression Total Score: 9 06/25/2020 7:04 AM RECLAIMER documented as of this encounter Care Teams Desktop Support Consultant Relationship Specialty Start Date End Date Marija Edgar APRN PCP - General Nurse Practitioner 04/30/20 ENG[employer] FRAMES [address] [place] [address] Lita Oseguera Personal Advocate & 02/28/20 Liaison (PAL) Chanelle Mccann Assigned OBGYN Provider 05/02/20 05/09/21 [place] [address] [address] [facility], [address] [place], [place] [address] Kyara De La Fuente, VJ Specialty Care Neurology 06/04/20 03/05/21 Coordinator Marija Edgar APRN Assigned PCP 06/08/20 [employer] [address] [place], [place] [phone] Mynor Broussard MD Assigned Surgical 06/01/20 11/28/21 [address] [facility] Provider [address] [place] [address] Mauri, Melody Neuroscience 06/04/20 MD Keisha Provider [address] [place] [address] Stacey Briones, CAMPGROUND HAND Lead Quiller Machine Fixer Primary Care - CC 08/11/20 12/30/20 Lesley Moody, Community Health Worker 08/11/20 10/01/20 PA documented as of this encounter
--- OUTSIDE RECORDS SUMMARY | 2022-04-28 01:19 | XMS_ITS | Encounter Summary ---
:2000 Author Organization [facility] Address [address] [place] [address]. [place] [address] Care Team Providers Name Role Phone Lita Oseguera Unavailable Unavailable Marija Edgar APRN SOCK BOARDER Primary Care Provider [phone] Chanelle Mccann APRN CNM Unavailable + Kyara De La Fuente RN Unavailable Marija Edgar APRN SOCK BOARDER Unavailable Mynor Broussard MD Unavailable Keisha Dotson MD Unavailable Stacey Briones DIABETIC EDUCATOR Unavailable Lesley Moody MA Unavailable Mary Mejia Unavailable Unavailable Reason for Visit Reason Comments Urgent Care Asthma SOB daily Encounter Details Date Type Department Care Team Description 09/03/2020 Office Visit [facility] Pat Loco Chest pain, unspecified type (Primary Dx); Urgent Care Shmuel Robin MD SOB (shortness of breath) [address] [address] [place], [place] [address] [address] [place] [address] [phone] (Wo rk) Social History Tobacco Use Types [...] How often do you attend catholic or sabianist services? Never 09/22/2021 Do you [...] with No / Unsure 09/03/2020 12:11 PM CHIEF SAFETY OFFICER someone who was confirmed or suspected to have Coronavirus / COVID-19? documented as of this encounter Last Filed Vital Signs Vital Sign Reading Time Taken Comments Blood Pressure 110/64 09/03/2020 12:16 PM CHIEF SAFETY OFFICER Pulse 72 09/03/2020 12:16 PM CHIEF SAFETY OFFICER Temperature 36.5 ??C (97.7 ??F) 09/03/2020 12:16 PM CHIEF SAFETY OFFICER Respiratory Rate 18 09/03/2020 12:16 PM CHIEF SAFETY OFFICER Oxygen Saturation 100% 09/03/2020 12:16 PM CHIEF SAFETY OFFICER Inhaled Oxygen Concentration - - Weight 87.5 kg (193 lb) 09/03/2020 12:16 PM CHIEF SAFETY OFFICER Height 167.6 cm (5' 6) 09/03/2020 12:16 PM CHIEF SAFETY OFFICER Body Mass Index 31.15 09/03/2020 12:16 PM CHIEF SAFETY OFFICER documented in this encounter Progress Notes Yovana Collins - 09/03/2020 12:15 PM CST Peak flow reading is 250 on first attempt and 310 on second attempt. Pt stated she was not able to try it again and it hurt in her lungs after she attempted it.-Yovana Collins, EMTB Clinic Health Guide F SAFETY OFFICER Pat David MD - 09/03/2020 12:15 PM CST Assessment & Plan 1. Chest pain, unspecified type 2. Shortness of breath - CBC with platelets and differential - Comprehensive metabolic panel - D dimer, quantitative - Troponin I -BNP - EKG 12-lead complete w/read - Clinics Suspect most likely due to anxiety, Will do labs to further assess Peak flow rate 320 - lower limit of normal. Will also refer for PFTs. Pt also has echo in a few days. Euvolemic here today. No signs of chf. Legs not swollen, chest cta. Does feel more sob when recumbent - may be anxiety worse at night? TTE to evaluate further in a couple days. Doubt PE, [place] - ekg normal. Follow up if symptoms worsen in the coming days or as scheduled with ob and pcp. 40 minutes spent on the date of the encounter doing chart review, review of test results, interpretation of tests, patient visit and documentation No follow-ups on file. Pat David MD [facility] Subjective Kim Johnson is a 20 year old year old female who presents to clinic today for the following health issues: Patient presents with: Urgent Care Asthma: SOB daily HPI This is a 20 yo female who is 19 weeks . She has been having shortness of breath and a feeling of a tight band around her chest recently. She has been seen for these symptoms several times overthe past month including 3 ED visits in the past week. She is concerned about a possible PE given significant family hx. No smoking, vaping currently although she did both up to 9 months ago. No fever or chills. No wheezing. Dry cough. No recreational drug use or alcohol. Tight band around her chest feels like pressure. No sweats, neck or arm pain associated with this. It comes and goes and is tolerable but persistent. Her stress and anxiety is reasonably controlled she feels. Sleeping fine. SOB is w onesimo when she lies down although is able to lie flat in bed. Diagnosed with SVT recently and is taking metoprolol xl 25 mg daily. No recurrent fast heart rates per her report since starting this. Patient Active Problem List Diagnosis ??? Seizure (H) ??? Depressed ??? Anxiety ??? Tobacco abuse counseling ??? Psoriasis ??? Head ache ??? Right ureteral stone ??? Left ureteral stone ??? Asthma Current Outpatient Medications Medication ??? folic acid (FOLVITE) 1 MG tablet ??? lamoTRIgine (LAMICTAL) 25 MG tablet ??? levETIRAcetam (KEPPRA) 500 MG tablet ??? metoprolol succinate ER (TOPROL-XL) 25 MG 24 hr tablet ??? naproxen (NAPROSYN) 500 MG tablet ??? omeprazole (PRILOSEC) [address] capsule ??? Vit-Fe Fumarate-FA ( MULTIVITAMIN W/IRON) 27-0.8 MG tablet ??? sertraline (ZOLOFT) 100 MG tablet No current facility-administered medications for this visit. Past Medical History: Diagnosis Date ??? Anxiety ??? Chronic kidney disease ??? Depressive disorder ??? Eczema ??? Gastroesophageal reflux disease ??? Seizure (H) 05/02/2019 Social History reports that she quit smoking about 8 months ago. Her smoking use included other. She smoked 1.00 pack per day. She has never used smokeless tobacco. She reports previous alcohol use. She reports thatshe does not use drugs. Family History Problem Relation Age of Onset ??? Heart Disease Maternal Grandfather ??? Brain Tumor Sister VTE and CAD as well Review of Systems Constitutional, HEENT, cardiovascular, pulmonary, gi and gu systems are negative, except as otherwise noted. Objective BP 110/64 Pulse 72 Temp 97.7 ??F (36.5 ??C) (Tympanic) Resp 18 Ht 1.676 m (5' 6) Wt 87.5 kg (193 lb) LMP 05/05/2020 SpO2 100% BMI 31.15 kg/m?? Physical Exam GENERAL: healthy, alert and no distress EYES: Eyes grossly normal to inspection, PERRL and conjunctivae and sclerae normal HENT: ear canals and TM's normal, nose and mouth without ulcers or lesions NECK: no adenopathy, no asymmetry, masses, or scars and thyroid normal to palpation RESP: lungs clear to auscultation - no rales, rhonchi or wheezes BREAST: normal without masses, tenderness or nipple discharge and no palpable axillary masses or adenopathy CV: regular rate and rhythm, normal S1 [...] normal PSYCH: mentation appears normal, affect normal/bright EKG - Reviewed and interpreted by me appears normal, NSR, normal axis, normal intervals, no acute ST/T changes c/w ischemia, unchanged from previous tracings F SAFETY OFFICER documented in this encounter Miscellaneous Notes Addendum Note - Pat David MD - 09/03/2020 12:15 PM CHIEF SAFETY OFFICER Addended by: PAT DAVID on: 09/03/2020 01:39 PM Modules accepted: Orders F SAFETY OFFICER documented in this encounter Plan of Treatment Upcoming Encounters Date Type Specialty Care Team Description 04/28/2022 Office Visit Family Practice Anthony Doe PA-C [address] [place] [address] (Wo rk) 05/03/2022 Office Visit Dermatology Neil Kent M D [address] [place], [place] [address] (Wo rk) 05/05/2022 Office Visit Optometry Yeny David, OD [address] [place], [place] [id number] (Wo rk) 05/11/2022 Virtual Visit Pharm D Diana Desir , [facility] [address] [place], [place] [address] (Wo rk) 05/14/2022 Office Visit Cardiology Livan Sharif MD [address], [address] [place], [place] [address] (Wo rk) 05/31/2022 Office Visit Family Practice Valery Veronica , PA-C [address] [place], [place] [phone] (Wo rk) Pending Results Name Type Priority Associated Diagnoses Date/Ti me EKG 12-lead complete EKG Routine Chest pain, unspecif ied 09/03/2020 12:51 PM CHIEF SAFETY OFFICER w/read - Clinics type Scheduled Orders Name Type Priority Associated Diagnoses Order S chedule Pulmonary Function Test PFT Routine SOB (shortness of breath) Expected: 09/04/2020 (Approximate), Expires: 2020 documented as of this encounter Procedures Procedure Name Priority Date/Time Associated Comments Diagnosis N TERMINAL PRO BNP STAT 09/03/2020 1:43 PM SOB (shortness o f Results for this OUTPATIENT CHIEF SAFETY OFFICER breath) procedure are i n the results section. CBC WITH PLATELETS & STAT 09/03/2020 12:55 Chest pain, Res ults for this DIFFERENTIAL PM CHIEF SAFETY OFFICER unspecified type procedure a re in the results section. TROPONIN I STAT 09/03/2020 12:55 Chest pain, Results for this PM CHIEF SAFETY OFFICER unspecified type procedure a re in the results section. D DIMER QUANTITATIVE STAT 09/03/2020 12:55 Chest pain, Res ults for this PM CHIEF SAFETY OFFICER unspecified type procedure a re in the results section. COMPREHENSIVE STAT 09/03/2020 12:55 Chest pain, Results fo r this METABOLIC PANEL PM CHIEF SAFETY OFFICER unspecified type procedur e are in the results section. documented in this encounter Results General PFT Lab (Please always keep checked) (09/08/2020 3:17 PM CHIEF SAFETY OFFICER) P athologist Signature FVC-Pred 4.07 L [facility] PFT FVC-Pre 5.28 L [facility] PFT FVC-%Pred-Pre 129 % [facility] PFT FEV1-Pre 4.35 L [facility] PFT FEV1-%Pred-Pre 122 % [facility] PFT [id number] 88 % [facility] PFT [id number] 82 % [facility] PFT FEFMax-Pred 7.13 L/sec [facility] PFT FEFMax-Pre 6.61 L/sec [facility] PFT FEFMax-%Pred-Pr 92 % [facility] PFT e [id number] 4.12 L/sec [facility] PFT [id number] 4.55 L/sec [facility] PFT [id number]-P 110 % [facility] PFT re ExpTime-Pre 6.38 [...] [facility] PFT ERV-%Pred-Pre 149 % [facility] PFT [id number] 87 % [facility] PFT [id number] 82 % [facility] PFT FRCPleth-Pred 2.78 L [...] [facility] PFT VA-%Pred-Pre 118 % [facility] PFT [id number] 81 % [facility] PFT [id number] 84 % [facility] PFT Specimen (Source) Anatomical Collection Method Collection Time Re ceived Time Location / / Volume Laterality 09/08/2020 3:17 PM CHIEF SAFETY OFFICER Narrative [facility] PFT - 09/09/2020 7:04 PM CHIEF SAFETY OFFICER The FVC, FEV1, FEV1/FVC ratio and QDC82-86% are within normal limits. ??The inspiratory flow [...] nically signed: ??CAITLIN PRICE 09/09/2020 ??06:53:25 PM? Pat David MD PFT ORDERABLES Performing Organization Address City/State/ZIP Code Estevan CONTRERAS PFT BNP-N terminal pro (09/03/2020 1:43 PM CHIEF SAFETY OFFICER) athologist Signature N-Terminal Pro 12 0 - 125 09/03/2020 [place] Bnp pg/mL 2:43 PM [facility] Comment: Reference range shown and results flagge d as abnormal are for the outpatient, non acute settings. Establishing a basel ine value for each individual patient is useful for follow-up. Suggested inpatient cut points for confi rming diagnosis of CHF in an acute setting are: >450 pg/mL (age 18 to less than 50) >900 pg/mL (age 50 to less than 75) >1800 pg/mL (75 yrs and older) An inpatient or emergency department NT- proPBNP <300 pg/mL effectively rules out acute CHF, with 99% negative predict shyam value. Specimen Anatomical Collection Method Collection Time Receive d Time (Source) Location / / Volume Laterality Blood specimen 09/03/2020 1:43 PM 021 1:48 (specimen) CHIEF SAFETY OFFICER PM CHIEF SAFETY OFFICER Pat David MD LAB - BLOOD ORDERAB LES Performing Organization Address City/State/ZIP Code Phon e Jose A Medina [facility] [address] [place] [address] [phone] [facility] [address] [address], [facility] [phone] Troponin I (09/03/2020 12:55 PM CHIEF SAFETY OFFICER) athologist Signature Troponin I ES <0.015 0.000 - 09/03/2020 [place] 0.045 ug/L 2:42 PM [facility] Comment: The 99th percentile for upper reference range is 0.045 ug/L. ??Troponin values in the range of 0.045 - 0.120 ug/L may b e associated with risks of adverse clinical events. Specimen Anatomical Collection Method Collection Time Receive d Time (Source) Location / / Volume Laterality Blood specimen 09/03/2020 12:55 02/24/202 1 1:00 (specimen) PM CHIEF SAFETY OFFICER PM CHIEF SAFETY OFFICER Pat David MD LAB - BLOOD ORDERAB LES Performing Organization Address [facility]/ZIP [facility] chuck [place]aranjo [facility] [address] [place], [place] [address] [facility] [address] [place], [place] [address], [facility] [phone] D dimer, quantitative (09/03/2020 12:55 PM CHIEF SAFETY OFFICER) athologist Signature D Dimer 0.5 0.0 - 0.50 09/03/2020 [facility] ug/ml FEU 2:36 PM [facility] Comment: This D-dimer assay is intended for use i n conjunction with a clinical pretest probability assessment model to exclude pulmonary embolism (PE) and deep venous thrombosis (DVT) in outpatients s uspected of PE or DVT. The cut-off value is 0.5 ug/mL FEU. Specimen Anatomical Collection Method Collection Time Receive d Time (Source) Location / / Volume Laterality Blood specimen 09/03/2020 12:55 1 1:00 (specimen) PM CHIEF SAFETY OFFICER PM CHIEF SAFETY OFFICER Pat David MD LAB - BLOOD ORDERAB LES Performing Organization Address [facility] chuck [place] [facility] [address] [place], [place] [address] [facility] [address] [place], [place] [address], [facility] [phone] (ABNORMAL) Comprehensive metabolic panel (09/03/2020 12:55 PM CHIEF SAFETY OFFICER) athologist [facility] Sodium 136 133 - 144 09/03/2020 [place] mmol/L 2:32 PM [facility] Potassium 3.5 3.4 - 5.3 09/03/2020 [facility] mmol/L 2:32 PM [facility] Chloride 104 94 - 109 09/03/2020 [facility] mmol/L 2:32 PM [facility] Carbon Dioxide 23 20 - 32 09/03/2020 [place] mmol/L 2:38 PM [facility] Anion Gap 9 3 - 14 09/03/2020 [facility] mmol/L 2:38 PM [facility] Glucose 76 70 - 99 09/03/2020 [facility] mg/dL 2:38 PM [facility] Urea Nitrogen 9 7 - 30 09/03/2020 [facility] mg/dL 2:38 PM [facility] Creatinine 0.64 0.52 - 09/03/2020 [facility] 1.04 mg/dL 2:38 PM [facility] GFR Estimate >90 >60 09/03/2020 [place] mL/min/{1. 2:38 PM [facility] 73_m2} HOSPITAL Comment: Non GFR Calc Starting 06/27/2018, serum creatinine ba sed estimated GFR (eGFR) will be calculated using the Chronic Kidney Dise [facility] Epidemiology Collaboration (CKD-EPI) equation. GFR Estimate If >90 >60 mL/min/{1.73_m2} 09/03/2020 2: 38 PM [facility] Comment: GFR Calc Starting 06/27/2018, serum creatinine ba sed estimated GFR (eGFR) will be calculated using the Chronic Kidney Dise [facility] Epidemiology Collaboration (CKD-EPI) equation. Calcium 9.0 8.5 - 10.1 09/03/2020 2:38 PM [place] R IDGES mg/dL [facility] Bilirubin Total 0.3 0.2 - 1.3 mg/dL 09/03/2020 2:40 PM [facility] Albumin 2.9 (L) 3.4 - 5.0 g/dL 09/03/2020 2:40 PM [facility] Protein Total 7.0 6.8 - 8.8 g/dL 09/03/2020 2:40 PM [facility] Alkaline Phosphatase 53 40 - 150 U/L 09/03/2020 2:40 PM [facility] ALT 21 0 - 50 U/L 09/03/2020 2:40 PM [facility] AST 6 0 - 45 U/L 09/03/2020 2:40 PM [facility] Specimen Anatomical Collection Method Collection Time Receive d Time (Source) Location / / Volume Laterality Blood specimen 09/03/2020 12:55 1:00 (specimen) PM [facility] Pat David MD LAB - BLOOD ORDERAB LES Performing Organization Address City/State/ZIP Code Phon e Number M [facility] [address] [address] [facility] [address] [place], [place] [address], [facility] [phone] [facility] [address] [place] [address], [facility] (ABNORMAL) CBC with platelets and differential (09/03/2020 12:55 PM CHIEF SAFETY OFFICER) [facility] Method Time Signature WBC 8.7 4.0 - 09/03/2020 [facility] 11.0 1:10 PM CHIEF SAFETY OFFICER CLINICS 10e9/L [place] RBC Count 3.94 3.8 - 5.2 09/03/2020 [facility] 10e12/L 1:10 PM CHIEF SAFETY OFFICER CLINICS [place] Hemoglobin 10.5 (L) 11.7 - 09/03/2020 [facility] 15.7 g/dL 1:10 PM CHIEF SAFETY OFFICER CLINICS [place] Hematocrit 33.2 (L) 35.0 - 09/03/2020 [facility] 47.0 % 1:10 PM CHIEF SAFETY OFFICER CLINICS [place] MCV 84 78 - 100 09/03/2020 [facility] fl 1:10 PM CHIEF SAFETY OFFICER CLINICS [place] MCH 26.6 26.5 - 09/03/2020 [facility] 33.0 pg 1:10 PM CHIEF SAFETY OFFICER CLINICS [place] MCHC 31.6 31.5 - 09/03/2020 [facility] 36.5 g/dL 1:10 PM CHIEF SAFETY OFFICER CLINICS [place] RDW 13.2 10.0 - 09/03/2020 [facility] 15.0 % 1:10 PM CHIEF SAFETY OFFICER [facility]ICS [place] Platelet Count 232 150 - 450 09/03/2020 [facility] 10e9/L 1:10 PM CHIEF SAFETY OFFICER [facility]INICS [place] % Neutrophils 68.8 % 09/03/2020 [facility] 1:10 PM CHIEF SAFETY OFFICER [facility]INICS [place] % Lymphocytes 20.8 % 09/03/2020 [facility] 1:10 PM CHIEF SAFETY OFFICER [facility]INICS [place] % Monocytes 6.3 % 09/03/2020 [facility] 1:10 PM CHIEF SAFETY OFFICER [facility]INICS [place] % Eosinophils 3.9 % 09/03/2020 [facility] 1:10 PM CHIEF SAFETY OFFICER [facility]INICS [place] % Basophils 0.2 % 09/03/2020 [place] 1:10 PM CHIEF SAFETY OFFICER [facility] Absolute 6.0 1.6 - 8.3 09/03/2020 [place] Neutrophil 10e9/L 1:10 PM CHIEF SAFETY OFFICER [facility] Absolute 1.8 0.8 - 5.3 09/03/2020 [place] Lymphocytes 10e9/L 1:10 PM CHIEF SAFETY OFFICER [facility] Absolute 0.6 0.0 - 1.3 09/03/2020 [place] Monocytes 10e9/L 1:10 PM CHIEF SAFETY OFFICER [facility] Absolute 0.3 0.0 - 0.7 09/03/2020 [place] Eosinophils 10e9/L 1:10 PM CHIEF SAFETY OFFICER [facility] Absolute 0.0 0.0 - 0.2 09/03/2020 [place] Basophils 10e9/L 1:10 PM [facility] Diff Method Automated 09/03/2020 [place] Method 1:10 PM [facility] Specimen Anatomical Collection Method Collection Time Receive d Time (Source) Location / / Volume Laterality Blood specimen 09/03/2020 12:55 1:00 (specimen) PM CHIEF SAFETY OFFICER PM CHIEF SAFETY OFFICER Pat David MD LAB - BLOOD ORDERAB LES Performing Organization Address City/State/ZIP Code Phon e Number [facility] [address] [place] [address] documented in this encounter Visit Diagnoses Diagnosis Chest pain, unspecified type - Primary SOB (shortness of breath) Shortness of breath SOB (shortness of breath) Shortness of breath documented in this encounter Additional Health Concerns Assessment Noted Time PHQ-9 Depression Total Score: 9 06/25/2020 7:04 AM CHIEF SAFETY OFFICER documented as of this encounter Care Teams Smoked Meat Preparer Relationship Specialty Start Date End Date Marija Edgar APRN PCP - General Nurse Practitioner 04/30/20 S[address] [address] [place] [address] Lita Oseguera Personal Advocate & 02/28/20 Liaison (PAL) Chanelle Mccann Assigned OBGYN Provider 05/02/20 05/09/21 ARLENE Mooney [facility] [address] [address] [place] [address] Kyara De La Fuente, RN Specialty Care Neurology 06/04/20 03/05/21 Coordinator Mraija Edgar APRN Assigned PCP 06/08/20 [address] [address] [place] [address] Mynor Broussard MD Assigned Surgical 06/01/20 11/28/[address] [facility] Provider [address] [place], [place] [address] Keisha Dotson, Assigned Neuroscience 06/04/20 MD Provider [address] [place], [place] [address] Stacey Briones, DIABETIC EDUCATOR Lead Director Of Business Services Primary Care - CC 08/11/20 12/30/20 Lesley Moody, Community Health Worker 08/11/20 10/01/20 MA Mary Mejia Financial Resource 09/02/2009/09 Worker documented as of this encounter
--- OUTSIDE RECORDS SUMMARY | 2022-04-28 01:19 | XMS_ITS | Encounter Summary ---
:2000 Author Organization [facility] Address [address] [place] [address]. [place] [address] Care Team Providers Name Role Phone Lita Oseguera Unavailable Unavailable Marija Edgar APRN CHIEF OF SURGERY Primary Care Provider [phone] Chanelle Mccann APRN CNM Unavailable + Kyara De La Fuente RN Unavailable Marija Edgar APRN CHIEF OF SURGERY Unavailable Mynor Broussard MD Unavailable Keisha Dotson MD Unavailable Stacey Briones LUMBER STRAIGHTENER Unavailable Lesley Moody MA Unavailable Reason for Visit Reason Comments Consult discuss medication Encounter Details Date Type Department Care Team Description 08/31/2020 Office Visit [facility] Amaris Pascal Paroxysma l supraventricular tachycardia (H) (Primary Dx); Urgent Care ROVERTO Brownlee Palpitations Caret [address] [place] [phone] Social History Tobacco Use Types Packs/Day Years [...] How often do you attend mormon or alevism services? Never 09/22/2021 Do you [...] been in contact with No / Unsure 08/31/2020 2:34 PM RN CLINICAL someone who was confirmed or suspected to have Coronavirus / COVID-19? documented as of this encounter Last Filed Vital Signs Vital Sign Reading Time Taken Comments Blood Pressure 110/60 08/31/2020 2:41 PM RN CLINICAL Pulse 73 08/31/2020 2:41 PM RN CLINICAL Temperature 37.2 ??C (99 ??F) 08/31/2020 2:41 PM RN CLINICAL Respiratory Rate 16 08/31/2020 2:41 PM RN CLINICAL Oxygen Saturation 98% 08/31/2020 2:41 PM RN CLINICAL Inhaled Oxygen Concentration - - Weight 87.5 kg (193 lb) 08/31/2020 2:41 PM RN CLINICAL Height - - Body Mass Index 31.15 08/29/2020 8:18 PM RN CLINICAL documented in this encounter Progress Notes Amaris Pascal PA-C - 08/31/2020 2:35 PM CST Assessment & Plan Paroxysmal supraventricular tachycardia (H) She started metoprolol XL 25 mg daily for 72 hours now. At this point I have recommended waiting at least another week or so before titrating the medication up. She is currently asymptomatic in clinic.Advised follow-up with electrophysiology, and to also have her echocardiogram completed. Follow-up with OB and or primary care provider if worsening symptoms. Discussed red flag symptoms and when to seek emergent care. I did give her a note to have the week off from work in an attempt to be able to schedule the various appointments that she has regarding this issue. She agrees with the plan. Palpitations Recently diagnosed SVT. Continue 25 mg daily Metoprolol XL. She agrees. Return for Follow up with Pastrycook'S Assistant. Amaris Pascal PA-C [facility] Dario Alvarez is a 20 year old female who presents to clinic today for the following health issues: Chief Complaint Patient presents with ??? Consult discuss medication HPI Patient is ~18 weeks with history of palpitations ( for at least a couple years), seizures,anxiety, asthma, recently diagnosed SVT presenting to urgent care today to discuss recent prescribedmedication dosage . She was recently set up with a Zio patch from 08/05/2020 through 08/16/20 and notedto have an instance of SVT while monitored. She was seen at [facility] ED twice on 08/29/2020 due to palpitations. She was started on metoprolol XL 25 mg daily following consult with cardiology andOB/Dive Superintendent. Chart reviewed and labs/ imaging from 08/29/2020 essentially normal. She has been on the metoprolol now for 3 days, she notes it helps a little. She did have another episode of rapid heart rate this morning, while at rest. She reports chest discomfort during those episodes. She was wondering ifshe should increase the dose of the metoprolol. An echocardiogram has been ordered for her and is pending. She also has a referral to see electrophysiology. She denies chest pain, sob, fever/chills/n/v/d. Review of Systems Constitutional, HEENT, cardiovascular, pulmonary, gi and gu systems are negative, except as otherwise noted. Objective BP 110/60 (BP Location: Right arm, Patient Position: Chair, Cuff Size: Adult Regular) Pulse 73 Temp 99 ??F (37.2 ??C) (Oral) Resp 16 Wt 87.5 kg (193 lb) LMP 05/05/2020 SpO2 98% No BMI 31.15 kg/m?? Physical Exam GENERAL: healthy, alert and no distress RESP: lungs clear to auscultation - no rales, rhonchi or wheezes CV: regular rate and rhythm, normal S1 S2, no S3 or S4, no murmur NEURO: mentation intact and speech normal CLINICAL documented in this encounter Plan of Treatment Upcoming Encounters Date Type Specialty Care Team Description 04/28/2022 Office Visit Family Practice Anthony Doe PA-C [address] [place] [address] ([place]) 05/03/2022 Office Visit Dermatology Neil Kent M D [address] [place], [place] [phone] ([place]) 05/05/2022 Office Visit Optometry Yeny David, OD [address] [facility] [place] [phone] (Wo rk) 05/11/2022 Virtual Visit Pharm D Diana Desir , [facility] [address] [place], [place] [phone] (Wo aldo) 05/14/2022 Office Visit Cardiology Livan Sharif MD [address], [address] [place] [address] (Wo rk) 05/31/2022 Office Visit Family Practice Valery Veronica PA-C [address] [place] [address] (Wo rk) documented as of this encounter Visit Diagnoses Diagnosis Paroxysmal supraventricular tachycardia (H) - Primary Paroxysmal supraventricular tachycardia Palpitations documented in this encounter Additional Health Concerns Assessment Noted Time PHQ-9 Depression Total Score: 9 06/25/2020 7:04 AM RN CLINICAL documented as of this encounter Care Teams Operations Engineer Relationship Specialty Start Date End Date Marija Edgar APRN PCP - General Nurse Practitioner 04/30/20 CHIEF OF SURGERY [address] [place] [address] Lita Oseguera Personal Advocate & 02/28/20 Liaison (PAL) Chanelle Mccann Assigned OBGYN Provider 05/02/20 05/09/21 [place] [address] [address] [facility], [facility] [address] [place] [address] Kyara De La Fuente RN Specialty Care Neurology 06/04/20 03/05/21 Coordinator Marija Edgar APRN Assigned PCP 06/08/20 CHIEF OF SURGERY [address] [place] [address] Mynor Broussard MD Assigned Surgical 06/01/20 11/28/21 [address] [facility] Provider [address] [place], [place] [id number] Mauri, Assigned Neuroscience 06/04/20 MD Keisha Provider [address] [place] [address] Anselmo, Stacey K, LUMBER STRAIGHTENER [employer] Pile Driver Operator Primary Care - CC 08/11/20 12/30/20 Lesley Moody, Community Health Worker 08/11/20 10/01/20 [place] documented as of this encounter
--- OUTSIDE RECORDS SUMMARY | 2022-04-28 01:19 | XMS_ITS | Encounter Summary ---
:2000 Author Organization [facility] Address [address] [place] [address] Care Team Providers Name Role Phone Lita Oseguera Unavailable Unavailable Marija Edgar APRN CRIMINAL INTELLIGENCE ANALYST Primary Care Provider Chanelle Mccann WALL COVERING INSTALLER CNM Unavailable + Kyara De La Fuente RN Unavailable Marija Edgar APRN CRIMINAL INTELLIGENCE ANALYST Unavailable Mynor Broussard MD Unavailable Keisha Dotson MD Unavailable Stacey Briones INCLUSION TEACHER Unavailable Lesley Moody MA Unavailable Reason for Visit Reason Comments Cough Encounter Details Date Type Department Care Team Description 08/30/2020 Emergency [facility] Deidra Tinsley Acute vi ral syndrome [facility] Emergency Dep t MD Beata [address] [place] [address] 8786 [facility] [address] [place] [address] (Wo rk) Social History Tobacco Use Types [...] How often do you attend judaism or adventist services? Never 09/22/2021 Do you [...] with No / Unsure 08/30/2020 3:05 PM PACKING HOUSE SUPERVISOR someone who was confirmed or suspected to have Coronavirus / COVID-19? documented as of this encounter Last Filed Vital Signs Vital Sign Reading Time Taken Comments Blood Pressure 129/71 08/30/2020 3:07 PM PACKING HOUSE SUPERVISOR Pulse 84 08/30/2020 3:07 PM PACKING HOUSE SUPERVISOR Temperature 36.5 ??C (97.7 ??F) 08/30/2020 3:07 PM PACKING HOUSE SUPERVISOR Respiratory Rate 16 08/30/2020 3:07 PM PACKING HOUSE SUPERVISOR Oxygen Saturation 100% 08/30/2020 5:30 PM PACKING HOUSE SUPERVISOR Inhaled Oxygen Concentration - - Weight - - Height - - Body Mass Index - - documented in this encounter Discharge Instructions Discharge InstructionsDeidra Tinsley MD - 08/30/2020 5:15 PM PACKING HOUSE SUPERVISOR Discharge Instructions COVID-19 COVID-19 is the disease caused by a new coronavirus. The virus spreads from [id number] primarily by droplets when an infected person coughs or sneezes and the droplet either lands on another person or that other person touches a surface with the droplet on it. There are tests available to diagnose COVID-19. There is no specific treatment or medicine for the disease. You may have been diagnosed with COVID, may be being tested for COVID and have a pending test result, or may have been exposed to COVID. Symptoms of COVID-19 Many people have no symptoms or mild symptoms. Symptoms may usually appear 4 to 5 days (up to 14 days) after contact with a person with COVID-19. Some people will get severe symptoms and pneumonia. Usual symptoms are: ? Fever ? Cough ? Trouble breathing Less common symptoms are: Headache, body aches, sore throat, sneezing, diarrhea, loss of taste or smell. Isolation and Quarantine You were seen because you have symptoms, had an exposure, or had some other concern about possible COVID. The best way to stop the spread of the virus is to avoid contact with others. Isolation refers to sick people staying away from people who are not sick. A person in quarantine islimiting activity because they were exposed and are waiting to see if they might become sick. If you test positive for COVID, you should stay home (isolation) for at least 10 days after your symptoms began, and for 24 hours with no fever and improvement of symptoms--whichever is longer. (Your fever should be gone for 24 hours without using fever-reducing medicine). If you have no symptoms, youshould stay home (isolation) for 10 days from the day of the test. For example, if you have a fever and cough for 6 days, you need to stay home 4 more days with no fever for a total of 10 days. Or, if you have a fever and cough for 10 days, you need to stay home one more day with no fever for a total of 11 days. If you have a high-risk exposure to COVID (you spent 15 minutes or more within six feet of somebody who has COVID), you should stay home (quarantine) for 14 days. Even if you test negative for COVID, the CDC recommends a 14-day quarantine from the time of your last exposure to that individual. There are options for a shortened (<14 day quarantine) you can review at: https://www.[facility]./diseases/coronavirus/close.html#long If you have symptoms but a negative test, you should stay at home until you are symptom-free and without fever for 24 hours, using the same judgment you would for when it is safe to return to work/school from strep throat, influenza, or the common cold. If you worsen, you should consider being re-evaluated. If you are being tested for COVID and your test is pending, you should stay home until you know yourtest result. How should I protect myself and others? Do not go to work or school. Have a friend or relative do your shopping. Do not use public transportation (bus, train) or ridesharing (Lyft, Uber). Separate yourself from other people in your home. As much as possible, you should stay in one room and away from other people in your home. Also, use a separate bathroom, if possible. Avoid handling pets or other animals while sick. Wear a facemask if you need to be around other people and cover your mouth and nose with a tissue when you cough or sneeze. Avoid sharing personal household items. You should not share dishes, drinking glasses, forks/knives/spoons, towels, or bedding with other people in your home. After using these items, they should be washed with soap and water. Clean parts of your home that are touched often (doorknobs, faucets, countertops, etc.) daily. Wash your hands often with soap and water for at least 20 seconds or use an alcohol-based hand web press operator apprentice containing at least 60% alcohol. Avoid touching your face. Treat your symptoms. You can take Acetaminophen (Tylenol) to treat body aches and fever as needed for comfort. Ibuprofen (Advil or Motrin) can be used as well if you still have symptoms after taking Tylenol. Drink fluids. Rest. Watch for worsening symptoms such as shortness of breath/difficulty breathing or very severe weakness. Employers/workplaces are being asked by the Centers for Disease Control (CDC) to not request notes/documentation for you to return to work or prove that you were ill. You may choose to show your employer this paperwork. Also, repeat testing should not be required to return to work. Return to the Emergency Department if: If you are developing worsening breathing, shortness of breath, or feel worse you should seek medical attention. If you are uncertain, contact your health care provider/clinic. If you need emergency medical attention, call 911 and tell them you have been ill. ING HOUSE SUPERVISOR AttachmentsThe following attachments cannot be sent through Care Everywhere. Viral Syndrome (Adult) (Lao)documented in this encounter Medications at Time of [...] documented as of this encounter ED Notes Katelynn Delatorre RN - 08/30/2020 3:05 PM CST Pt is 18 weeks and recently dxn with SVT. Here last night with fever. States that today shehas diarrhea, cough and sore throat. Reports that her step- dad has similar sx. Has not taken her temperature today. Has not taken medications today. A+Ox4, no acute signs of distress. ING HOUSE SUPERVISOR Deidra Tinsley MD - 08/30/2020 3:03 PM CST History Chief Complaint: Cough HPI Kim Johnson is a 20 year old female currently 18 weeks with a history of recently diagnosed SVT, seizures, anxiety, and asthma who presents for evaluation of throat, cough, shortness of breath starting this morning with a low-grade fever of 100.2 noted last night. She has not had any fevertoday. She notes she slept till noon and when she awoke she had a harsh cough and sore throat and felt a little short of breath when she tried to take deep breaths. She denies chest pain. She denies any dizziness, vaginal bleeding or discharge, abdominal pain, nausea or vomiting. She has had diarrhea today, 4-5 episodes nonbloody or black. She has been able to eat and drink normally today. She notes her stepdad who she lives with has similar symptoms of headache and diarrhea. She denies any new medications aside from metoprolol. She notes she had will have the prescription for metoprolol tonight and took her first dose last night. Denies any new pets or animal exposures. Denies any other sick contacts. 08/29/20 ED visit Labs: CBC: ??WBC 7.7, HGB??10.7 (L), PLT??214, o/w WNL BMP:??BUN 5 (L), o/w WNL (Creatinine:??0.48 (L)) Troponin(1240): ??<0.015 ?? UA:??Bacteria:??few (A), Squamous Epithelial:??3??(H), Mucous: Present Review of Systems Constitutional: Negative for appetite change and fever. HENT: Positive for sore throat. Respiratory: Positive for cough and shortness of breath. Cardiovascular: Negative for chest pain. Gastrointestinal: Positive for diarrhea. Negative for abdominal pain, blood in stool, nausea and vomiting. Genitourinary: Negative for vaginal bleeding and vaginal discharge. Neurological: Negative for dizziness. All other systems reviewed and are negative. Allergies: The patient has no known allergies. Medications: Mirena IUD Lamictal Keppra Metoprolol succinate Naproxen Prilosec Zoloft Ativan Past Medical History: Seizure Depression Anxiety Psoriasis Kidney stones Asthma CKD GERD Past Surgical History: Abdomen surgery Family History: Brain Tumor in her sister Social History: The patient presents alone. Lives at home with family. Quit smoking with . Physical Exam Patient Vitals for the past 24 hrs: BP Temp Temp src Pulse Resp SpO2 08/30/20 1630 -- -- -- -- -- 100 % 08/30/20 1615 -- -- -- -- -- 100 % 08/30/20 1600 -- -- -- -- -- 99 % 08/30/20 1545 -- -- -- -- -- 99 % 08/30/20 1530 -- -- -- -- -- 100 % 08/30/20 1507 129/71 97.7 ??F (36.5 ??C) Temporal 84 16 99 % Physical Exam General: Adult female sitting upright. Eyes: PERRL, Conjunctive within normal limits ENT: Moist mucous membranes, oropharynx clear. No posterior pharyngeal erythema, edema or exudates. Neck: No palpable lymphadenopathy. No rigidity. Normal active range of motion. CV: Normal S1S2, no murmur, rub or gallop. Regular rate and rhythm Resp: Clear to auscultation bilaterally, no wheezes, rales or rhonchi. Normal respiratory effort. GI: Abdomen is soft and nontender. MSK: No edema. Nontender. Normal active range of motion. Skin: Warm and dry. No rashes or lesions or ecchymoses on visible skin. Neuro: Alert and oriented. Responds appropriately to all questions and commands. No focal findings appreciated. Normal muscle tone. Psych: Normal mood and affect. Pleasant. Emergency Department Course Laboratory: BMP: Urea nitrogen: 6 (L), Creatinine: 0.50 (L), o/w WNL Streptococcus A Rapid Scr w Reflx to PCR: Negative Group A Streptococcus PCR throat Swab: In process Symptomatic Influenza A/B & SARS-CoV2 (COVID-19) Virus PCR Multiplex: Negative Emergency Department Course: Reviewed: I reviewed nursing notes, vitals and past medical history Assessments: 1525 I obtained history and examined the patient as noted above. 1713 I rechecked the patient and explained findings. Interventions: 1613 0.9% Sodium Chloride BOLUS 1000 mLs IV Disposition: The patient was discharged to home. Impression & Plan [facility] Diagnoses: None Medical Decision Making: Kim Johnson is a 20 year old female presents for evaluation of multiple symptoms including respiratory and GI. Patient is concerned for a cough, sore throat, and shortness of breath and diarrhea. Evaluation consisted of Physical exam, electrolyte testing, rapid strep and rapid COVID/flu. Strep was negative. Covid/flu pending on discharge. Patient to be called with results. Exam consistent with probable viral illness. No evidence of sepsis. No meningismus. She had no abdominal symptoms and I do not suspect complication with . Xray not indicated clear lungs and no hypoxia or tachypnea or any respiratory distress. Diarrhea unlikely to be bacterial in origin by history. She also has no risk factors for C. difficile. Discharged with advice for symptomatic treatment including over the counter medication such as OTC daytime/night time cold medicine and Ibuprofen. Advised to follow up with HIGH SCHOOL BAND TEACHER in 2 to 3 days if continued symptoms, sooner if worsening. Patient will return to the ER/UR if t hey develop high fevers not controlled with medication, difficulty breathing, shortness of breath, or has other concerns. Covid-19 Kim Johnson was evaluated during a global COVID-19 pandemic, which necessitated consideration that the patient might be at risk for infection with the SARS-CoV-2 virus that causes COVID-19. Applicable protocols for evaluation were followed during the patient's care. COVID-19 was considered as part of the patient's evaluation. The plan for testing is: a test was obtained during this visit. Diagnosis: ICD-10-CM 1. Acute viral syndrome B34.9 Scribe Disclosure: I, Patti Bolaños, am serving as a scribe at 3:20 PM on 08/30/2020 to document services personally performed by Deidra Tinsley MD based on my observations and the provider's statements to me. Deidra Tinsley MD 08/30/20 8219 ING HOUSE SUPERVISOR documented in this encounter Plan of Treatment Upcoming Encounters Date Type Specialty Care Team Description 04/28/2022 Office Visit [facility] Anthony Doe, PAUcheC [address] [place], [place] [id number] (Wo rk) 05/03/2022 Office Visit Dermatology Neil Kent M D [address] [place] [address] (Wo rk) 05/05/2022 Office Visit Optometry Yeny David, OD [address] [place] [phone] (Wo rk) 05/11/2022 Virtual Visit Pharm D Diana Desir , [facility] [address] [place], [place] [address] (Wo rk) 05/14/2022 Office Visit Cardiology Livan Sharif MD [address] [facility] [address] [place], [place] [address] (Wo rk) 05/31/2022 Office Visit [facility] Valery Veronica , PA-C [address] [place] [address] (Wo rk) documented as of this encounter Procedures Procedure Name Priority Date/Time Associated Comments Diagnosis INFLUENZA A/B & STAT 08/30/2020 4:13 PM Result s for this SARS-COV2 PCR PACKING HOUSE SUPERVISOR procedure are in MULTIPLEX the results section. STREPTOCOCCUS A RAPID STAT 08/30/2020 4:13 PM Results for this SCREEN W REFELX TO PCR PACKING HOUSE SUPERVISOR proce dure are in the results section. GROUP A STREPTOCOCCUS STAT 08/30/2020 4:13 PM Acute viral Results for this PCR THROAT SWAB PACKING HOUSE SUPERVISOR syndrome procedure ar e in the results section. BASIC METABOLIC PANEL STAT 08/30/2020 4:13 PM Results for this PACKING HOUSE SUPERVISOR procedure are i n the results section. documented in this encounter Results Group A Streptococcus PCR Throat Swab (08/30/2020 4:13 PM PACKING HOUSE SUPERVISOR) [facility] Method Time Signature Specimen Throat 08/30/2020 [place] Description 4:52 PM [facility] Strep Group A Not Detected NDET^Not 08/30/2020 [place] [facility] PCR Detected 7:54 PM PACKING HOUSE SUPERVISOR [facility] Comment: Group A Streptococcus DNA is not detecte d. FDA approved assay performed using L[employer]caster id GeneXpert real-time PCR. Specimen Anatomical Collection Method Collection Time Receive d Time (Source) Location / / Volume Laterality Specimen from 08/30/2020 4:13 PM 08/30/19 4:19 throat PACKING HOUSE SUPERVISOR PM PACKING HOUSE SUPERVISOR (specimen) Deidra Tinsley MD LAB - MICRO GENERAL ORDERABL ES Performing Organization Address City/State/ZIP Code Phon e Number [phone] [place] [address] [address] [place], [place] [address] [facility] [phone] Streptococcus A Rapid Scr w Reflx to PCR (08/30/2020 4:13 PM PACKING HOUSE SUPERVISOR) [facility] Method Time Signature Strep Specimen Throat 08/30/2020 [place] Description 3:34 PM [facility] Streptococcus Negative NEG^Negat 08/30/2020 [place] Group A Rapid shyam 4:52 PM [facility] Comment: No Group A streptococcal antigen detecte d by immunoassay. Confirmatory testing in progress. Specimen Anatomical Collection Method Collection Time Receive d Time (Source) Location / / Volume Laterality Specimen from 08/30/2020 4:13 PM 08/30/19 4:19 throat PACKING HOUSE SUPERVISOR PM PACKING HOUSE SUPERVISOR (specimen) Deidra Tinsley MD LAB - MICRO GENERAL ORDERABL ES Performing Organization Address City/State/ZIP Code Phon e Number [place] [address] [place], [place] [address] [facility] [address] [place], [place] [address] [phone] Symptomatic Influenza A/B & SARS-CoV2 (COVID-19) Virus PCR Multiplex (08/30/2020 4:13 PM PACKING HOUSE SUPERVISOR) [facility] Method Time Signature Flu A/B & Nasopharyngeal 08/30/2020 [place] SARS-COV-2 4:13 PM PACKING HOUSE SUPERVISOR [facility] PCR Source HOSPITAL SARS-CoV-2 NEGATIVE 08/30/2020 [place] PCR Result 5:05 PM [facility] Comment: SARS-CoV2 (COVID-19) RNA not de tected, presumed negative. Influenza A PCR Negative NEG^Negative 08/30/2020 5:05 PM [facility] Comment: Influenza A RNA not detected, p resumed negative. Influenza B PCR Negative NEG^Negative 08/30/2020 5:05 PM [facility] Comment: Influenza B RNA not detected, p resumed negative. Respiratory Syncytial (Note) 08/30/2020 5:05 PM PACKING HOUSE SUPERVISOR [facility] Virus PCR HOSPITAL Comment: Test not performed with this il thodology. Flu A/B & SARS-CoV-2 PCR (Note) 08/30/2020 5:05 PM PACKING HOUSE SUPERVISOR [facility] Comment: Testing was performed using the [...] test, if coinfection would change clinical management. [facility] are certi fied under the Clinical Laboratory Improvement Amendments of 1988 (CLIA-88) as qualified to perform moderate and/or high complexity laboratory testin g. Specimen (Source) Anatomical Collection Method Collection Time Re ceived Time Location / / Volume Laterality Specimen from 08/30/2020 4:13 08/30/2020 nasopharyngeal PM PACKING HOUSE SUPERVISOR 4:20 PM PACKING HOUSE SUPERVISOR structure (specimen) Deidra Tinsley MD LAB - MICRO GENERAL ORDERABL ES Performing Organization Address City/State/ZIP Code Phon e Number [facility] [address] [place] [address] [facility] [address] [phone] (ABNORMAL) Basic metabolic panel (08/30/2020 4:13 PM PACKING HOUSE SUPERVISOR) Analysis Performed At Patho logist Time Signature Sodium 139 133 - 144 08/30/2020 [place] mmol/L 4:39 PM [facility] Potassium 3.5 3.4 - 5.3 08/30/2020 [place] mmol/L 4:39 PM [facility] Chloride 108 94 - 109 08/30/2020 [place] mmol/L 4:39 PM [facility] Carbon Dioxide 23 20 - 32 08/30/2020 [place] mmol/L 4:44 PM [facility] Anion Gap 8 3 - 14 08/30/2020 [place] mmol/L 4:44 PM [facility] Glucose 76 70 - 99 08/30/2020 [place] mg/dL 4:44 PM [facility] Urea Nitrogen 6 (L) 7 - 30 08/30/2020 [place] mg/dL 4:44 PM [facility] Creatinine 0.50 (L) 0.52 - 08/30/2020 [place] 1.04 mg/dL 4:44 PM [facility] GFR Estimate >90 >60 08/30/2020 [place] mL/min/{1. 4:44 PM [facility] 73_m2} HOSPITAL Comment: Non GFR Calc Starting 06/27/2018, serum creatinine ba sed estimated GFR (eGFR) will be calculated using the Chronic Kidney Dise [facility] Epidemiology Collaboration (CKD-EPI) equation. GFR Estimate If >90 >60 mL/min/{1.73_m2} 08/30/2020 4: 44 PM [facility] Comment: GFR Calc Starting 06/27/2018, serum creatinine ba sed estimated GFR (eGFR) will be calculated using the Chronic Kidney Dise [facility] Epidemiology Collaboration (CKD-EPI) equation. Calcium 9.0 8.5 - 10.1 mg/dL 08/30/2020 4:44 PM [facility] Specimen Anatomical Collection Method Collection Time Receive d Time (Source) Location / / Volume Laterality Blood specimen 08/30/2020 4:13 PM 021 4:20 (specimen) PACKING HOUSE SUPERVISOR PM PACKING HOUSE SUPERVISOR Deidra Tinsley MD LAB - BLOOD ORDERABLES Performing Organization Address City/State/ZIP Code Phon e Number M [address] [address] [facility] [address] [place], [place] [address], [facility] [phone] [address], [phone] HOSPITAL documented in this encounter Visit Diagnoses Diagnosis Acute viral syndrome documented in this encounter Administered Medications Inactive Administered Medications - up to 3 most recent administrations Medication Order MAR Action Action Date Dose Rate Site 0.9% sodium chloride BOLUS New Bag 08/30/2020 4:13 PM PACKING HOUSE SUPERVISOR 1,000 mLs 1000 mL/hr Intravenous, 1,000 mL, ONCE, at 1,000 mL/hr, Administer over 1 Hours, On 08/30/20 at 1535, For 1 dose sodium chloride 0.9% infusion at 125 mL/hr, Intravenous, CONTINUOUS, A dminister after the bolus., Starting on 08/30/20 at 1635, Until 08/30/20 at 1937 documented in this encounter Active and Recently Administered Medications Times are shown in PACKING HOUSE SUPERVISOR. Scheduled Medication Order 08/28/2020 08/29/2020 08/30/2020 0.9% sodium chloride BOLUS (COMPLETED) 1613 (New Bag - Provider: Samantha Rodgers, RN)1717 (Stopped - Provider: Samantha Rodgers, RN) Intravenous, 1,000 mL, ONCE, at 1,000 mL /hr, Administer over 1 Hours, 08/30/20 at 1535, For 1 dose Continuous Medication Order 08/28/2020 08/29/2020 08/30/2020 sodium chloride 0.9% infusion 16 35 (Canceled Entry - Provider: Orders Generic Provider - Comment: Automatically canceled at discontinue of medication order) at 125 mL/hr, Intravenous, CONTINUOUS, A dminister after the bolus., Starting 08/30/20 at 1635, Until 08/30/20 at 1937 documented in this encounter Additional Health Concerns Infection Onset Date Last Indicated Resolved Time Rule Out COVID-19 08/30/2020 08/30/2020 08/30/2020 5:0 5 PM PACKING HOUSE SUPERVISOR Assessment Noted Time PHQ-9 Depression Total Score: 9 06/25/2020 7:04 AM PACKING HOUSE SUPERVISOR documented as of this encounter Care Teams Heel Attacher Wood Relationship Specialty Start Date End Date Marija Edgar APRN PCP - General Nurse Practitioner 04/30/20 CRIMINAL INTELLIGENCE ANALYST [address] [place] [address] Lita Oseguera Personal Advocate & 02/28/20 Liaison (PAL) Chanelle Mccann Assigned OBGYN Provider 05/02/20 05/09/21 ARLENE Mooney [facility] [address] [facility] [address] [place], [place] [phone] Kyara De La Fuente, VJ Specialty Care Neurology 06/04/20 03/05/21 Coordinator Marija Edgar APRN Assigned PCP 06/08/20 CRIMINAL INTELLIGENCE ANALYST [address] [place] [address] Mynor Broussard MD Assigned Surgical 06/01/20 11/28/21 [address] Provider [address] [place] [address] Mauri, Melody Neuroscience 06/04/20 MD Keisha Provider [address] [place], [place] [phone] Stacey Briones, INCLUSION TEACHER Lead Hot Metal Charger Primary Care - CC 08/11/20 12/30/20 Lesley Moody, Community Health Worker 08/11/20 10/01/20 DC documented as of this encounter
--- OUTSIDE RECORDS SUMMARY | 2022-04-28 01:19 | XMS_ITS | Encounter Summary ---
:2000 Author Organization [facility] Address [address] [place] [address] Care Team Providers Name Role Phone Lita Oseguera Unavailable Unavailable Marija Edgar APRN SAT TUTOR Primary Care Provider [phone] Chanelle Mccann APRN CNM Unavailable + Kyara De La Fuente RN Unavailable Marija Edgar APRN SAT TUTOR Unavailable Mynor Broussard MD Unavailable Keisha Dotson MD Unavailable Stacey Briones SCHOOL COORDINATOR Unavailable Lesley Moody MA Unavailable Mary Mejia Unavailable Unavailable Encounter Details Date Type Department Care Team Description 09/03/2020 Travel Social History Tobacco Use Types Packs/Day [...] How often do you attend temple or jainism services? Never 09/22/2021 Do you [...] with No / Unsure 09/03/2020 12:11 PM ELEMENTARY SPECIAL EDUCATION TEACHER someone who was confirmed or suspected to have Coronavirus / COVID-19? documented as of this encounter Plan of Treatment Upcoming Encounters Date Type Specialty Care Team Description 04/28/2022 Office Visit Family Practice Anthony Doe PA-C [address] [place], [place] [phone] (Wo rk) 05/03/2022 Office Visit Dermatology Neil Kent M D [address] [place] [phone] (Wo rk) 05/05/2022 Office Visit Optometry Yeny David, OD [address] [facility] [address] [place] [phone] (Wo rk) 05/11/2022 Virtual Visit Pharm D Diana Desir , [facility] [address] [place], [place] [address] (Wo rk) 05/14/2022 Office Visit Cardiology Livan Sharif MD [address], [facility] [address] [place], [place] [address] (Wo rk) 05/31/2022 Office Visit Family Practice Valery Veronica , PAUcheC 909 [place], [place] [address] (Wo rk) documented as of this encounter Visit Diagnoses Not on filedocumented in this encounter Additional Health Concerns Assessment Noted Time PHQ-9 Depression Total Score: 9 06/25/2020 7:04 AM ELEMENTARY SPECIAL EDUCATION TEACHER documented as of this encounter Care Teams Processing Supervisor Relationship Specialty Start Date End Date Marija Edgar APRN PCP - General Nurse Practitioner 04/30/20 SAT TUTOR [address] [place] [address] Lita Oseguera Personal Advocate & 02/28/20 Liaison (PAL) Chanelle Mccann Assigned OBGYN Provider 05/02/20 05/09/21 [place] [address] [address] [facility], [facility] 200 [place], [place] [address] Kyara De La Fuente, VJ Specialty Care Neurology 06/04/20 03/05/21 Coordinator Marija Edgar APRN Assigned PCP 06/08/20 SAT TUTOR [address] [place], [place] [phone] Mynor Broussard MD Assigned Surgical 06/01/20 11/28/21 [address] [facility] Provider [address] [place] [address] Keisha Dotson, Assigned Neuroscience 06/04/20 MD Provider [address] [place] [address] Stacey Briones, SCHOOL COORDINATOR Lead Ornamental Metalwork Designer Primary Care - CC 08/11/20 12/30/20 Lesley Moody, Community Health Worker 08/11/20 10/01/20 [place] Mary Mejia Financial Resource 09/02/2009/09 Worker documented as of this encounter
--- OUTSIDE RECORDS SUMMARY | 2022-04-28 01:19 | XMS_ITS | Encounter Summary ---
:2000 Author Organization [facility] Address [address] [place] [address]. [place] [address] Care Team Providers Name Role Phone Lita Oseguera Unavailable Unavailable Marija Edgar APRN CORPORATE LEGAL INTERN Primary Care Provider [phone] Chanelle Mccann APRN CNM Unavailable + Kyara De La Fuente RN Unavailable Marija Edgar APRN CORPORATE LEGAL INTERN Unavailable Mynor Broussard MD Unavailable Keisha Dotson MD Unavailable Stacey Briones CONDOMINIUM PROPERTY MANAGER Unavailable Lesley Moody MA Unavailable Mary Mejia Unavailable Unavailable Reason for Visit Reason Onset Date Comments Patient Request 09/03/2020 Encounter Details Date Type Department Care Team Description 09/03/2020 [facility] Marija Edgar APRN Patient Request [address] [phone] [place], [place] [phone] [address] (Wo rk) Social History Tobacco Use Types [...] with No / Unsure 09/03/2020 12:11 PM CLINICAL RESEARCH PHYSICIAN someone who was confirmed or suspected to have Coronavirus / COVID-19? documented as of this encounter Miscellaneous Notes Telephone Encounter - Matti David MD - 09/03/2020 3:55 PM CST I have ordered a cta chest for her. Please help her schedule at [facility] today. ICAL RESEARCH PHYSICIAN Telephone Encounter - Jerome Ferrell RN - 09/03/2020 3:28 PM CST Patient called stating that she was just seen in UC today and has concerns that her D-dimer went up from a month ago from 0.3 to 0.5 and she has all the symptoms of a blood clot and has a high family history of blood clots. Patient states she was told if she has questions or concerns to call. Patient would like CT imaging ordered in order to rule out a blood clot. Patient reports having shortness of breath. Please advise. Jerome Joe RN, BSN ICAL RESEARCH PHYSICIAN documented in this encounter Plan of Treatment Upcoming Encounters Date Type Specialty Care Team Description 04/28/2022 Office Visit [facility] Anthony Doe, PAUcheC [address] [place] [address] (Wo rk) 05/03/2022 Office Visit Dermatology Neil Kent M D 500 [place] [address] (Wo rk) 05/05/2022 Office Visit Optometry Yeny David, OD [address] [place] [phone] (Wo rk) 05/11/2022 Virtual Visit Pharm D Diana Desir , [facility] [address] [place], [place] [address] (Wo rk) 05/14/2022 Office Visit Cardiology Livan Sharif MD [address] [facility] [address] [place], [place] [address] (Wo rk) 05/31/2022 Office Visit [facility] Valery Veronica , PAUcheC 909 [place] [address] (Wo rk) documented as of this encounter Visit Diagnoses Diagnosis SOB (shortness of breath) - Primary Shortness of breath documented in this encounter Additional Health Concerns Assessment Noted Time PHQ-9 Depression Total Score: 9 06/25/2020 7:04 AM CLINICAL RESEARCH PHYSICIAN documented as of this encounter Care Teams Chief Controller Station Relationship Specialty Start Date End Date Marija Edgar APRN PCP - General Nurse Practitioner 04/30/20 CORPORATE LEGAL INTERN [address] [place], [place] [phone] Lita Oseguera Personal Advocate & 02/28/20 Liaison (PAL) Chanelle Mccann Assigned OBGYN Provider 05/02/20 05/09/21 [place] [address] [address] [facility] 200 [place], [place] [address] Kyara De La Fuente RN Specialty Care Neurology 06/04/20 03/05/21 Coordinator Marija Edgar APRN Assigned PCP 06/08/20 CORPORATE LEGAL INTERN [address] [place], [place] [phone] Mynor Broussard MD Assigned Surgical 06/01/20 11/28/21 6363 [facility] Provider 500 [place], [place] [address] Keisha Dotson, Assigned Neuroscience 06/04/20 Provider 909 [place], [place] [address] Stacey Briones LSW Lead Hedis Manager Primary Care - CC 08/11/20 12/30/20 Lesley Moody, Community Health Worker 08/11/20 10/01/20 [place], Mary Financial Resource 09/02/2009/09 Worker documented as of this encounter
--- OUTSIDE RECORDS SUMMARY | 2022-04-28 01:19 | XMS_ITS | Encounter Summary ---
:2000 Author Organization [facility] Address [address] [place] [address]. [place] [address] Care Team Providers Name Role Phone Lita Oseguera Unavailable Unavailable Marija Edgar APRN BOILERS INSPECTOR Primary Care Provider [phone] Chanelle Mccann APRN CNM Unavailable + Kyara De La Fuente RN Unavailable Marija Edgar APRN BOILERS INSPECTOR Unavailable Mynor Broussard MD Unavailable Keisha Dotson MD Unavailable Stacey Briones GMAT INSTRUCTOR Unavailable Lesley Moody MA Unavailable Mary Mejia Unavailable Unavailable Encounter Details Date Type Department Care Team Description 09/03/2020 Telephone [facility] Marija Edgar APRN [place] [phone] [address] [phone] [place] [address] (Wo rk) Social History Tobacco [...] How often do you attend scientology or anabaptist services? Never 09/22/2021 Do you [...] with No / Unsure 08/31/2020 2:34 PM PMP PROJECT MANAGER someone who was confirmed or suspected to have Coronavirus / COVID-19? documented as of this encounter Miscellaneous Notes Telephone Encounter - Rebecca Vickers RN - 09/03/2020 11:01 AM PMP PROJECT MANAGER Patient came to [facility] noting she wanted to be seen for evaluation for Asthma and increased SOB since being . Patient persistent she wanted us to see her here for work up to breathe into machine to tell her she has asthma. Patient reports being told by coordinator Cristina on the phone to go to in [facility] at our location as they have more access like ER. No notes regarding patient plan seen, no referral placed for [facility] from provider or appointment made here. Reached out to PCP who advised patient should follow up in for evaluation today for SOB and also continue to follow up with Cardiology Tuesday and PCP next week as scheduled. Patient was advised and agreed with plan to proceed to [facility] today. Rebecca Perez - Registered Nurse [facility] PROJECT MANAGER documented in this encounter Plan of Treatment Upcoming Encounters Date Type Specialty Care Team Description 04/28/2022 Office Visit Family Practice Anthony Doe, PAUcheC [address] [place] [address] (Wo rk) 05/03/2022 Office Visit Dermatology Neil Kent M D 500 [place], [place] [phone] (Wo rk) 05/05/2022 Office Visit Optometry Yeny David, OD [address] [facility] [address] [place] [phone] (Wo rk) 05/11/2022 Virtual Visit Pharm D Diana Desir , [facility] [address] [place], [place] [address] (Wo rk) 05/14/2022 Office Visit Cardiology Livan Sharif MD [address] , [facility] [address] [place], [place] [address] (Wo rk) 05/31/2022 Office Visit Family Practice Valery Veronica PAUcheC 909 [place], [place] [address] (Wo rk) documented as of this encounter Visit Diagnoses Not on filedocumented in this encounter Additional Health Concerns Assessment Noted Time PHQ-9 Depression Total Score: 9 06/25/2020 7:04 AM PMP PROJECT MANAGER documented as of this encounter Care Teams Mineral Engineer Relationship Specialty Start Date End Date Marija Edgar APRN PCP - General Nurse Practitioner 04/30/20 BOILERS INSPECTOR [address] [place] [address] Lita Oseguera Personal Advocate & 02/28/20 Liaison (PAL) Chanelle Mccann Assigned OBGYN Provider 05/02/20 05/09/21 ARLENE Mooney CNM [address] [place], [place] [place], [place] [address] Kyara De La Fuente, VJ Specialty Care Neurology 06/04/20 03/05/21 Coordinator Marija Edgar APRN Assigned PCP 06/08/20 BOILERS INSPECTOR [address] [place], [place] [phone] Mynor Broussard MD Assigned Surgical 06/01/20 11/28/21 [address] [facility] Provider 500 [place], [place] [address] Keisha Dotson, Assigned Neuroscience 06/04/20 Provider 909 [place], [place] [address] Stacey Brioens, GMAT INSTRUCTOR Lead Manager Systems Primary Care - CC 08/11/20 12/30/20 Lesley Moody, Community Health Worker 08/11/20 10/01/20 JOSE ALBERTO Mary Mejia Financial Resource 09/02/2009/09 Worker documented as of this encounter
--- OUTSIDE RECORDS SUMMARY | 2022-04-28 01:19 | XMS_ITS | Encounter Summary ---
:2000 Author Organization [facility] Address [address] [place] [address] Care Team Providers Name Role Phone Lita Oseguera Unavailable Unavailable Marija Edgar APRN COMMUNITY CASE MANAGER Primary Care Provider Chanelle Mccann APRN CNM Unavailable + Kyara De La Fuente RN Unavailable Marija Edgar APRN COMMUNITY CASE MANAGER Unavailable Mynor Broussard MD Unavailable Keisha Dotson MD Unavailable Stacey Briones RN LABOR DELIVERY Unavailable Lesley Moody MA Unavailable Mary Mejia Unavailable Unavailable Reason for Visit (Routine) - Closed Specialty Diagnoses / Procedures Referred By Contact Refer red To Contact Cardiology Procedures Rh Cv Cardiac Svc [facility] ECHO COMPLETE [address] [facility] [address] [place], [place] [address] Phone: Fax: Referral ID Status Reason Start Date Expiration Date Visits Requ ested Visits Authorized [id number] Closed 09/05/2020 09/05/2021 1 1 Encounter Details Date Type Department Care Team Description 09/05/2020 Hospital Encounter M [facility] Raul Perez [facility] MD Aline (supraventricular Heart Care [address] tachycardia) (A) [address] [phone] Social History Tobacco Use Types Packs/Day [...] How often do you attend sikh or baptist services? Never 09/22/2021 Do you [...] with No / Unsure 09/05/2020 2:50 PM DETAIL MAKER AND FITTER someone who was confirmed or suspected to [...] Office Visit Family Practice Anthony Doe PA-C [address] [place], [place] [phone] (Wo rk) 05/03/2022 Office Visit Dermatology Neil Kent M D 500 [place] [address] (Wo rk) 05/05/2022 Office Visit Optometry Yeny David, OD [address] [facility] [place] [phone] (Wo rk) 05/11/2022 Virtual Visit Pharm D Diana Desir , [facility] [address] [place], [place] [address] (Wo rk) 05/14/2022 Office Visit Cardiology Livan Sharif MD [address], [place] [address] [place], [place] [address] (Wo rk) 05/31/2022 Office Visit Family Practice Valery Veronica PA-C 909 [place], [place] [address] (Wo rk) documented as of this encounter Procedures Procedure Name Priority Date/Time Associated Diagnosis Comme nts ECHO COMPLETE Routine 09/05/2020 3:21 PM SVT (supraventricular Results for this DETAIL MAKER AND FITTER tachycardia) (H) procedure a re in the results section . documented in this encounter Results ECHO COMPLETE (09/05/2020 3:21 PM DETAIL MAKER AND FITTER) Anatomical Region Laterality Modality Echocardiography Specimen (Source) Anatomical Collection Method Collection Time Re ceived Time Location / / Volume Laterality 09/05/2020 4:03 PM DETAIL MAKER AND FITTER Narrative 09/05/2020 4:03 PM DETAIL MAKER AND FITTER [id number]^LAINA^RAUL^ALINE [facility] Echocardiography Laboratory [address] [place] [address] Name: KIM CLARK : 2000 Study Date: 09/05/2020 04:03 PM Age: 20 yrs Gender: Female Patient Location: [facility] Reason For Study: SVT Ordering Physician: RAUL [...] note might be different from the original. [id number]^LAINA^RAUL^ALINE [facility] Echocardiography Laboratory [address] [facility] [place], [place] [address] Name: KIM CLARK : 2000 Study Date: 09/05/2020 04:03 PM Age: 20 yrs Gender: Female Patient Location: [facility] Reason For Study: SVT Ordering Physician: RAUL [...] PM Raul Perez MD CV ECHO ORDERABLES documented in this encounter Visit Diagnoses Diagnosis SVT (supraventricular tachycardia) (H) Other specified cardiac dysrhythmias documented in this encounter Additional Health Concerns Assessment Noted Time PHQ-9 Depression Total Score: 9 06/25/2020 7:04 AM DETAIL MAKER AND FITTER documented as of this encounter Care Teams Bite Block Maker Relationship Specialty Start Date End Date Marija Edgar APRN PCP - General Nurse Practitioner 04/30/20 COMMUNITY CASE MANAGER [address] [place], [place] [phone] Lita Oseguera Personal Advocate & 02/28/20 Liaison (PAL) Chanelle Mccann Assigned OBGYN Provider 05/02/20 05/09/21 [place] [address] [address] [facility] 200 [place], [place] [address] Kyara De La Fuente, VJ Specialty Care Neurology 06/04/20 03/05/21 Coordinator Marija Edgar APRN Assigned PCP 06/08/20 COMMUNITY CASE MANAGER [address] [place], [place] [phone] Mynor Broussard MD Assigned Surgical 06/01/20 11/28/21 6363 [facility] Provider 500 [place], [place] [address] Keisha Dotson, Assigned Neuroscience 06/04/20 Provider 909 [place], [place] [address] Stacey Briones LSW Lead Paleologist Primary Care - CC 08/11/20 12/30/20 Lesley Moody, Community Health Worker 08/11/20 10/01/20 [place] Mary Mejia Financial Resource 09/02/20 303/31 Worker documented as of this encounter
--- OUTSIDE RECORDS SUMMARY | 2022-04-28 01:19 | XMS_ITS | Encounter Summary ---
:2000 Author Organization [facility] Address [address] [place] [address] Care Team Providers Name Role Phone Lita Oseguera Unavailable Unavailable Marija Edgar APRN NARROW FABRIC LOOM FIXER Primary Care Provider [phone] Chanelle Mccann APRN CNM Unavailable + Kyara De La Fuente RN Unavailable Marija Edgar APRN NARROW FABRIC LOOM FIXER Unavailable Mynor Broussard MD Unavailable Keisha Dotson MD Unavailable Stacey Briones HOUSING CASE MANAGER Unavailable Lesley Moody MA Unavailable Encounter Details Date Type Department Care Team Description 08/31/2020 Travel Social History Tobacco Use Types Packs/Day [...] How often do you attend shinto or amish services? Never 09/22/2021 Do you [...] with No / Unsure 08/31/2020 2:34 PM TWIST PACKER someone who was confirmed or suspected to have Coronavirus / COVID-19? documented as of this encounter Plan of Treatment Upcoming Encounters Date Type Specialty Care Team Description 04/28/2022 Office Visit Family Practice Anthony Doe, ROVERTO [address] [place], [place] [phone] (Wo rk) 05/03/2022 Office Visit Dermatology Neil Kent M D 500 [place], [place] [address] (Wo rk) 05/05/2022 Office Visit Optometry Yeny David, OD [address] [facility] [address] [place] [phone] (Jefferson carlson) 05/11/2022 Virtual Visit Pharm D Diana Desir , [facility] [address] [place], [place] [address] (Wo rk) 05/14/2022 Office Visit Cardiology Livan Sharif MD [address], [facility] [address] [place] [address] (Wo rk) 05/31/2022 Office Visit Family Practice Valery Veronica , PA-C 909 [place] [address] (Wo rk) documented as of this encounter Visit Diagnoses Not on filedocumented in this encounter Additional Health Concerns Assessment Noted Time PHQ-9 Depression Total Score: 9 06/25/2020 7:04 AM TWIST PACKER documented as of this encounter Care Teams Veterinarian Relationship Specialty Start Date End Date Marija Edgar APRN PCP - General Nurse Practitioner 04/30/20 NARROW FABRIC LOOM FIXER [address] [place] [address] Lita Oseguera Personal Advocate & 02/28/20 Liaison (PAL) Chanelle Mccann Assigned OBGYN Provider 05/02/20 05/09/21 [place] [address] [address] [facility], [address] [place], [place] [address] Kyara De La Fuente, VJ Specialty Care Neurology 06/04/20 03/05/21 Coordinator Marija Edgar APRN Assigned PCP 06/08/20 NARROW FABRIC LOOM FIXER [address] [place], [place] [phone] Mynor Broussard MD Assigned Surgical 06/01/20 11/28/21 [address] [facility] Provider [address] [place] [address] Mauri, Melody Neuroscience 06/04/20 MD Keisha Provider [address] [place] [address] Stacey Briones, HOUSING CASE MANAGER Lead Phone Engineer Primary Care - CC 08/11/20 12/30/20 Lesley Moody, Community Health Worker 08/11/20 10/01/20 [place] documented as of this encounter
--- OUTSIDE RECORDS SUMMARY | 2022-04-28 01:19 | XMS_ITS | Encounter Summary ---
:2000 Author Organization [facility] [facility] Address [address] [place] [address]. [place] [address] Care Team Providers Name Role Phone Lita Oseguera Unavailable Unavailable Marija Edgar APRN AEROSPACE PHYSIOLOGICAL TECHNICIAN Primary Care Provider [phone] Chanelle Mccann APRN CNM Unavailable + Kyara De La Fuente RN Unavailable Marija Edgar APRN AEROSPACE PHYSIOLOGICAL TECHNICIAN Unavailable Mynor Broussard MD Unavailable Keisha Dotson MD Unavailable Stacey Briones ENVIRONMENTAL RESEARCH SCIENTIST Unavailable Lesley Moody MA Unavailable Mary Mejia Unavailable Unavailable Reason for Visit Reason Onset Date Comments No Show 09/02/2020 Encounter Details Date Type Department Care Team Description 09/02/2020 Office Visit [facility] Marija Edgar NO SHO W (Primary Dx) [facility] [place] ICE CREAM TRUCK DRIVER AEROSPACE PHYSIOLOGICAL TECHNICIAN [address] [address] [phone] Social History Tobacco Use Types Packs/Day Years [...] How often do you attend gnosticism or worship services? Never 09/22/2021 Do you [...] with No / Unsure 08/31/2020 2:34 PM HYDROMETEOROLOGIST someone who was confirmed or suspected to have Coronavirus / COVID-19? documented as of this encounter Progress Notes Marija Edgar APRN CNP - 09/02/2020 1:30 PM CST This patient was a no show for this scheduled appointment. OMETEOROLOGIST documented in this encounter Plan of Treatment Upcoming Encounters Date Type Specialty Care Team Description 04/28/2022 Office Visit Family [facility] Anthony Doe PAUcheC [address] [place], [place] [phone] (Wo rk) 05/03/2022 Office Visit Dermatology Neil Kent M D [address] [place], [place] [address]355 (Wo rk) 05/05/2022 Office Visit Optometry Yeny David, OD [address] [facility] [address] [place], [place] [phone] (Wo rk) 05/11/2022 Virtual Visit Pharm D Diana Desir , [facility] [address] [place], [place] [address] (Wo rk) 05/14/2022 Office Visit Cardiology Livan Sharif MD [address] [facility] [address] [place], [place] [address] (Wo rk) 05/31/2022 Office Visit Family [facility] Valery Veronica PA-C 909 [place] [address] (Wo rk) documented as of this encounter Visit Diagnoses Diagnosis NO SHOW - Primary documented in this encounter Additional Health Concerns Assessment Noted Time PHQ-9 Depression Total Score: 9 06/25/2020 7:04 AM HYDROMETEOROLOGIST documented as of this encounter Care Teams Electrical Assemblies Supervisor Relationship Specialty Start Date End Date Marija Edgar APRN PCP - General Nurse Practitioner 04/30/20 AEROSPACE PHYSIOLOGICAL TECHNICIAN [address] [place], [place] [phone] Lita Oseguera Personal Advocate & 02/28/20 Liaison (PAL) Chanelle Mccann Assigned OBGYN Provider 05/02/20 05/09/21 [place] [address] [address] [facility] 200 [place], [place] [address] Kyara De La Fuente, VJ Specialty Care Neurology 06/04/20 03/05/21 Coordinator Marija Edgar APRN Assigned PCP 06/08/20 AEROSPACE PHYSIOLOGICAL TECHNICIAN [address] [place], [place] [phone] Mynor Broussard MD Assigned Surgical 06/01/20 11/28/21 6363 [facility] Provider 500 [place] [address] Keisha Dotson, Assigned Neuroscience 06/04/20 MD Provider 909 [place] [address] Stacey Briones, ENVIRONMENTAL RESEARCH SCIENTIST Lead Electrical Mechanical Technician Primary Care - CC 08/11/20 12/30/20 Lesley Moody, Community Health Worker 08/11/20 10/01/20 JOSE ALBERTO Mary Mejia Financial Resource 09/02/2009/09 Worker documented as of this encounter
--- OUTSIDE RECORDS SUMMARY | 2022-04-28 01:20 | XMS_ITS | Encounter Summary ---
:2000 Author Organization [facility] Address [address] [place] [address] Care Team Providers Name Role Phone Lita Oseguera Unavailable Unavailable Marija Edgar APRN FAMILY INDEPENDENCE CASE MANAGER Primary Care Provider [phone] Chanelle Mccann APRN CNM Unavailable + Kyara De La Fuente RN Unavailable Marija Edgar APRN FAMILY INDEPENDENCE CASE MANAGER Unavailable Mynor Broussard MD Unavailable Keisha Dotson MD Unavailable Reason for Visit Reason Comments Chest Pain Shortness of Breath Encounter Details Date Type Department Care Team Description 08/06/2020 Emergency [facility] Estephania Barragan ess of breath; [facility] Emergency Dep riana Estrada PA-C Chest pain [address] [place], [place] [facility] [place] [id number] URGENT CARE [phone] [address] [facility] [place] [address] (Wo rk) Social History Tobacco Use Types [...] How often do you attend taoist or quaker services? Never 09/22/2021 Do you belong to any clubs or organizations such as No 09/22/2021 taoist groups, unions, fraCloudSafe or athletic groups, or school groups? How [...] or slept in a usp (including now)? Sex Assigned at Date Recorded Female 03/02/2021 5:45 PM CDT COVID-19 Exposure Response Date Recorded In the last month, have you been in contact with No / Unsure 08/06/2020 2:03 PM SINGLE NEEDLE TUFTING 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 someone who was confirmed or suspected to have Coronavirus / COVID-19? documented as of this encounter Last Filed Vital Signs Vital Sign Reading Time Taken Comments Blood Pressure 112/67 08/06/2020 8:15 PM SINGLE NEEDLE TUFTING 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 Pulse 70 08/06/2020 8:15 PM SINGLE NEEDLE TUFTING 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 Temperature 36.6 ??C (97.9 ??F) 08/06/2020 2:10 PM SINGLE NEEDLE TUFTING 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 Respiratory Rate 19 08/06/2020 8:00 PM SINGLE NEEDLE TUFTING 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 Oxygen Saturation 97% 08/06/2020 8:15 PM SINGLE NEEDLE TUFTING 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 Inhaled Oxygen Concentration - - Weight - - Height - - Body Mass Index - - documented in this encounter Discharge Instructions Discharge Estephania Gomes PA-C - 08/06/2020 8:23 PM SINGLE NEEDLE TUFTING 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 Discharge Instructions Chest Pain You have been [...] if there is anything that worries you. LE NEEDLE TUFTING 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 AttachmentsThe following attachments cannot be sent through Care Everywhere. Shortness of Breath (Dyspnea) (Venezuelan)documented in this encounter Medications at Time of [...] tabs convulsion type (H) twice a day naproxen (NAPROSYN) 500 Take 500 mg by 0 04/12/20 16 09/30/2020 MG tablet mouth omeprazole (PRILOSEC) 40 Take 1 capsule (40 90 capsule 3 03/03/[address] capsuleIndications: mg) by mouth daily Epigastric pain sertraline (ZOLOFT) 100 TAKE ONE AND 135 tablet 0 07/17/2020 10/06/2020 MG tabletIndications: ONE-HALF TABLETS BY Anxiety MOUTH EVERY DAY documented as of this encounter ED Notes Nelly Aguilar RN - 08/06/2020 2:10 PM CST A&O x4. ABC's intact. Pt arrives with c/o SOB and chest pain with deep breathing that started today. Patient is 15 wks . Estephania Pardo PA-C - 08/06/2020 2:03 PM CST History Chief Complaint: Chest Pain and Shortness of Breath HPI Kim Johnson is a 20 year old female with a history of asthma and seizures, and is 15 weeks , who presents to the ED for an evaluation of chest pain and shortness of breath. The patient was recently seen here in the ED 7 days ago on 07/30/20 for a sudden onset of shortness of breath, chest pain, and palpitations while walking outside. Chest XR and US lower extremity venous were unremarkable. D-dimer and troponins were negative. She was told to return to the ED if symptoms return or worsen. Today, she reports suddenly feeling short of breath while laying down and a new onset of pelvic cramping that worsened with a bowel movement. She also endorses intermittent, lower left chest pain with tightness. She denies palpitations, dysuria, hematuria, vaginal bleeding, bloody stools, or leg swelling. Of note, the maternal side of her family has a history of several cardiovascular issues including blood clots, but she denies a personal history of PE/DVT or cardiac problems. She denies any recent surgeries or travel. Review of Systems Respiratory: Positive for chest tightness and shortness of breath. Cardiovascular: Positive for chest pain. Negative for palpitations and leg swelling. Gastrointestinal: Negative for blood in stool. Genitourinary: Positive for pelvic pain. Negative for dysuria, hematuria and vaginal bleeding. All other systems reviewed and are negative. Allergies: The patient has no known allergies. Medications: Folvite Keppra Naprosyn Prilosec Zoloft Past Medical History: Anxiety Chronic kidney disease Depression Eczema GERD Seizures Asthma Uretal stones Psoriasis Past Surgical History: surgery Family History: Brain tumor Cardiovascular issues (maternal side) Social History: The patient presented alone. The patient is 15 weeks . Physical Exam Patient Vitals for the past 24 hrs: BP Temp Temp src Pulse Resp SpO2 08/06/201999 115/66 -- -- 73 19 98 % 08/06/20 1945 115/75 -- -- 71 19 98 % 08/06/20 1915 110/68 -- -- 69 -- 97 % 08/06/20 1900 116/69 -- -- 70 19 97 % 08/06/20 1745 115/64 -- -- 72 15 98 % 08/06/20 1715 126/62 -- -- 93 -- 98 % 08/06/20 1700 123/65 -- -- 78 18 99 % 08/06/20 1600 119/57 -- -- 70 21 98 % 08/06/20 1410 (!) 147/75 97.9 ??F (36.6 ??C) Temporal 84 16 97 % Physical Exam General: Alert and oriented. Head: The scalp, face, and head appear normal Eyes: Conjunctivae and sclerae are normal ENT: The oropharynx is normal Uvula is in the midline MMM CV: Regular rate and rhythm Normal S1/S2 Peripheral pulses intact in all 4 extremities No peripheral edema Resp: Lungs are clear to auscultation Non-labored No rales or wheezing GI: Abdomen is soft, non-distended Mild tenderness to the bilateral pelvic area. MS: Normal muscular tone Skin: No rash or acute skin lesions noted Neuro: Speech is normal and fluent. Emergency Department Course ECG (14:08:44): Rate 84 bpm. MT interval 126. QRS duration 84. QT/QTc 362/427. P-R-T axes 57 67 50. Normal sinus rhythm with sinus arrhythmia. Normal ECG. Interpreted at 1413 by Rain Daniel MD. Imaging: US Lower Extremity Venous Duplex Bilateral: 1. ??No deep venous thrombosis in the bilateral lower extremities. Imaging independently reviewed and agree with radiologist interpretation. US OB 2-3 trimester with transvaginal: 1. ??Single living intrauterine gestation at 14 weeks 1 day by patient report from outside ultrasound. Current study demonstrates normal interval growth. 2. ??No subchorionic hemorrhage evident. Normal amniotic fluid volume. Imaging independently reviewed and agree with radiologist interpretation. Chest XR, PA, & LAT: Negative chest. Imaging independently reviewed and agree with radiologist interpretation. Laboratory: CBC: HGB 11.2 (L), o/w WNL. (WBC 9.4, PLT 238) BMP: BUN 6 (L), o/w WNL. (Creatinine 0.54) Hepatic panel: albumin 3.1 (L), o/w WNL. D-dimer: 0.3 HCG Quantitative (162): 64,898 (H) BNP: 16 Troponin (Collected 1625): <0.015 UA with micro: bacteria moderate (A), squamous epithelial/HPF urine 3 (H), mucous urine present (A),o/w negative Emergency Department Course: Reviewed: 1702: I reviewed nursing notes. Assessments: 1707 I obtained history and examined the patient as noted above. 2018 I rechecked the patient and explained findings. Patient feels comfortable with discharge. Disposition: The patient was discharged to home. Impression & Plan Medical Decision Making: Kim Johnson is a 20 year old female who presents for evaluation of chest pain or shortness of breath. Please refer to the HPI for full details. Patient states that she was evaluated here approximately 1 week ago for similar symptoms with a negative work-up and was told to return if symptoms persisted and her symptoms returned today, prompting her evaluation. Upon my evaluation, patient states her symptoms have improved although she does continue to feel mildly short of breath. She denies any Covid exposure or any upper respiratory type symptoms. EKG demonstrates normal sinus rhythm without signsof ischemia or arrhythmia. Troponin is normal. D-dimer is negative. Patient is also 15 weeks and is complaining of mild pelvic pain without vaginal bleeding. She has mild tenderness to this area. Pelvic ultrasound was obtained and demonstrated intrauterine of appropriate age. hCG was obtained for trending purposes. UA is normal without evidence of infection. Chest x-ray is unremarka ble. I discussed with the patient about the work-up and results here, she expressed understanding. Not feel further PE work-up with CT is indicated given her D-dimer is negative. I feel this would be more detrimental to the patient and her unborn child given the negative D-dimer testing today. Patientfeels improved. She does have a Zio patch in place and I encouraged her to get this sent in as soon as possible for interpretation. Patient had no cardiac arrhythmias noted on today while on potline monitor today. She had no return of symptoms. She had a recent Covid test on 07/30 and I do not feel that was negative and I do not feel this needs repeated today. Overall, I believe the patient safe for discharge home. Cannot rule out occult arrhythmia that is noninfected on today's evaluation and therefore Zio patch continuation was discussed. She follows up with her primary care doctor in 2 days for recheck. I also encouraged follow-up with her SAIL CUTTER given her complaint of pelvic pain. Red flag symptoms, reasons return discussed and understood. All questions were answered prior to discharge.The patient understands and agrees with plan. Diagnosis: ICD-10-CM 1. Shortness of breath R06.02 2. Chest pain R07.9 Discharge Medications: New Prescriptions No medications on file Scribe Disclosure: I, Soo Castañeda, am serving as a scribe at 5:08 PM on 08/06/2020 to document services personally performed by Estephania Barragan PA-C based on my observations and the provider's statements to me. Estephania Barragan PA-C 08/06/20 2301 LE NEEDLE TUFTING 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 documented in this encounter Plan of Treatment Upcoming Encounters Date Type Specialty Care Team Description 04/28/[address] [facility] Anthony Doe PA-C [address] [place], [place] [phone] (Wo rk) 05/03/2022 Office Visit Dermatology Neil Kent M D [address] [place], [place] [phone] (Wo rk) 05/05/2022 Office Visit Optometry Yeny David, OD [address] [place], [place] [id number] (Wo rk) 05/11/2022 Virtual Visit Pharm D Diana Desir , [facility] [address] [place], [place] [address] (Wo rk) 05/14/2022 Office Visit Cardiology Livan Sharif MD [address] , [facility] [address] [place] [address] (Wo rk) 05/31/[address] [facility] Valery Veronica PA-C [address] [place], [place] [phone] (Wo rk) documented as of this encounter Procedures Procedure Name Priority Date/Time Associated Comments Diagnosis XR CHEST 2 VIEWS STAT 08/06/2020 6:54 PM Resul ts for this SINGLE NEEDLE TUFTING 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 procedure are i n the results section. US OB > 14 WEEKS STAT 08/06/2020 6:53 PM Resul ts for this SINGLE NEEDLE TUFTING 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 procedure are i n the results section. US LOWER EXTREMITY STAT 08/06/2020 6:10 PM Res ults for this VENOUS DUPLEX SINGLE NEEDLE TUFTING 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 procedure are in BILATERAL the results section. ROUTINE UA WITH STAT 08/06/2020 5:45 PM Result s for this MICROSCOPIC SINGLE NEEDLE TUFTING 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 procedure are i n the results section. CBC WITH PLATELETS & STAT 08/06/2020 4:26 PM R esults for this DIFFERENTIAL SINGLE NEEDLE TUFTING 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 procedure are i n the results section. TROPONIN I Routine 08/06/2020 4:26 PM Results f or this SINGLE NEEDLE TUFTING 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 procedure are i n the results section. NT PROBNP INPATIENT Routine 08/06/2020 4:26 PM Re sults for this SINGLE NEEDLE TUFTING 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 procedure are i n the results section. HEPATIC FUNCTION Routine 08/06/2020 4:26 PM Resul ts for this PANEL SINGLE NEEDLE TUFTING 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 procedure are i n the results section. HCG QUANTITATIVE Routine 08/06/2020 4:26 PM Resul ts for this SINGLE NEEDLE TUFTING 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 procedure are i n the results section. D DIMER QUANTITATIVE Routine 08/06/2020 4:26 PM R esults for this SINGLE NEEDLE TUFTING 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 procedure are i n the results section. BASIC METABOLIC PANEL STAT 08/06/2020 4:26 PM Results for this SINGLE NEEDLE TUFTING 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 procedure are i n the results section. EKG 12-LEAD, TRACING STAT 08/06/2020 2:08 PM R esults for this ONLY SINGLE NEEDLE TUFTING 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 procedure are i n the results section. documented in this encounter Results Chest XR, PA & LAT (08/06/2020 6:54 PM SINGLE NEEDLE TUFTING 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) Anatomical Region Laterality Modality Chest Digital Radiography Specimen (Source) Anatomical Collection Method Collection Time Re ceived Time Location / / Volume Laterality 08/06/2020 6:44 PM SINGLE NEEDLE TUFTING 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 Impressions 08/06/2020 7:01 PM SINGLE NEEDLE TUFTING 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 IMPRESSION: Negative chest. Narrative 08/06/2020 7:01 PM SINGLE NEEDLE TUFTING 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 EXAM: XR CHEST 2 VW LOCATION: [facility] DATE/TIME: 08/06/2020 6:44 PM INDICATION: Shortness of breath. COMPARISON: 07/30/2020 Procedure Note Seth Smith MD - 08/06/2020Formatt ing of this note might be different from the original. EXAM: XR CHEST 2 VW LOCATION: [facility] DATE/TIME: 08/06/2020 6:44 PM INDICATION: Shortness of breath. COMPARISON: 07/30/2020 IMPRESSION: Negative chest. Estephania Barragan PA-C IMG DIAGNOSTIC IMAGING ORDER GARY US OB > 14 Weeks (08/06/2020 6:53 PM SINGLE NEEDLE TUFTING 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) Anatomical Region Laterality Modality Abdomen/Pelvis Ultrasound Specimen (Source) Anatomical Collection Method Collection Time Re ceived Time Location / / Volume Laterality 08/06/2020 6:07 PM SINGLE NEEDLE TUFTING 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 Impressions 08/06/2020 7:18 PM SINGLE NEEDLE TUFTING 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 IMPRESSION: ?? 1. ??Single living intrauterine gestatio n at 14 weeks 1 day by patient report from outside ultrasound. Current study demonstrates normal interval growth. 2. ??No subchorionic hemorrhage evident. Normal amniotic fluid volume. Narrative 08/06/2020 7:18 PM SINGLE NEEDLE TUFTING 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 EXAM: US OB > 14 WEEKS LOCATION: [facility] DATE/TIME: 08/06/2020 6:07 PM INDICATION: Pelvic cramping. 14 weeks 1 day by report. COMPARISON: None. TECHNIQUE: Routine. FINDINGS: Single intrauterine gestation, variable presentation. Placenta is located anterior and left lateral. Amniotic fluid is normal. Uterus is normal. Maternal adnexa (right and left ovaries) show no abnormalities. ANOMALY SCREEN: Survey of the feta l anatomy not performed due to early gestational age. ?? BIOMETRY: Biparietal Diameter: 2.8 cm, 15 weeks 1 day Head Circumference: 10.6 cm, 15 weeks 1 day Abdominal Circumference: 8.8 cm, 15 week s 1 day Femur Length: 1.7 cm, 15 weeks 1 day Estimated Weight: 114 g EFW Percentile: 75% Heart Rate: 167 bpm EDC by First US exam: 02/03/2021 EDC by This US exam: 01/27/2021 Composite Age by First US: 14 weeks 1 da y Composite Age by This US: 15 weeks 1 day Procedure Note Seth Smith MD - 08/06/2020Formatt ing of this note might be different from the original. EXAM: US OB > 14 WEEKS LOCATION: [facility] DATE/TIME: 08/06/2020 6:07 PM INDICATION: Pelvic cramping. 14 weeks 1 day by report. COMPARISON: None. TECHNIQUE: Routine. FINDINGS: Single intrauterine gestation, variable presentation. Placenta is located anterior and left lateral. Amniotic fluid is normal. Uterus is normal. Maternal adnexa (right and left ovaries) show no abnormalities. ANOMALY SCREEN: Survey of the feta l anatomy not performed due to early gestational age. BIOMETRY: Biparietal Diameter: 2.8 cm, 15 weeks 1 day Head Circumference: 10.6 cm, 15 weeks 1 day Abdominal Circumference: 8.8 cm, 15 week s 1 day Femur Length: 1.7 cm, 15 weeks 1 day Estimated Weight: 114 g EFW Percentile: 75% Heart Rate: 167 bpm EDC by First US exam: 02/03/2021 EDC by This US exam: 01/27/2021 Composite Age by First US: 14 weeks 1 da y Composite Age by This US: 15 weeks 1 day IMPRESSION: 1. Single living intrauterine gestation at 14 weeks 1 day by patient report from outside ultrasound. Current study demonstrates normal interval growth. 2. No subchorionic hemorrhage evident. N ormal amniotic fluid volume. Estephania Barragan PA-C IMKaye US ORDERABLES US Lower Extremity Venous Duplex Bilateral (08/06/2020 6:10 PM SINGLE NEEDLE TUFTING 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) Anatomical Region Laterality Modality Vascular, Thigh, Leg Ultrasound Specimen (Source) Anatomical Collection Method Collection Time Re ceived Time Location / / Volume Laterality 08/06/2020 5:51 PM SINGLE NEEDLE TUFTING 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 Impressions 08/06/2020 7:07 PM SINGLE NEEDLE TUFTING 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 IMPRESSION: 1. ??No deep venous thrombosis in the bi lateral lower extremities. Narrative 08/06/2020 7:07 PM SINGLE NEEDLE TUFTING 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 EXAM: US LOWER EXTREMITY VENOUS DUPLEX BILATERAL LOCATION: [facility] DATE/TIME: 08/06/2020 5:51 PM INDICATION: Shortness of breath. COMPARISON: 07/30/2020 TECHNIQUE: Venous Duplex ultrasound of b ilateral lower extremities with and without compression, augmentation and duplex. Color flow and spectral Doppler with waveform analysis performed. FINDINGS: Exam includes the common femor al, femoral, popliteal veins as well as segmentally visualized deep calf veins and greater saphenous vein. RIGHT: No deep vein thrombosis. No super ficial thrombophlebitis. No popliteal cyst. LEFT: No deep vein thrombosis. No superf icial thrombophlebitis. No popliteal cyst. Procedure Note Seth Smith MD - 08/06/2020Formatt ing of this note might be different from the original. EXAM: US LOWER EXTREMITY VENOUS DUPLEX B ILATERAL LOCATION: [facility] DATE/TIME: 08/06/2020 5:51 PM INDICATION: Shortness of breath. COMPARISON: 07/30/2020 TECHNIQUE: Venous Duplex ultrasound of b ilateral lower extremities with and without compression, augmentation and duplex. Color flow and spectral Doppler with waveform analysis performed. FINDINGS: Exam includes the common femor al, femoral, popliteal veins as well as segmentally visualized deep calf veins and greater saphenous vein. RIGHT: No deep vein thrombosis. No super ficial thrombophlebitis. No popliteal cyst. LEFT: No deep vein thrombosis. No superf icial thrombophlebitis. No popliteal cyst. IMPRESSION: 1. No deep venous thrombosis in the bila teral lower extremities. Estephania Barragan PA-C IMG US ORDERABLES (ABNORMAL) UA with Microscopic (08/06/2020 5:45 PM SINGLE NEEDLE TUFTING 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) [facility] Method Time Signature Color Urine Light Yellow 08/06/2020 [facility] 6:15 PM [facility] Appearance Urine Clear 08/06/2020 [facility] 6:15 PM [facility] Glucose Urine Negative NEG^Negat 08/06/2020 [facility] shyam mg/dL 6:15 PM [facility] Bilirubin Urine Negative NEG^Negat 08/06/2020 [facility] shyam 6:15 PM [facility] Ketones Urine Negative NEG^Negat 08/06/2020 [facility] shyam mg/dL 6:15 PM [facility] Specific [place] 1.018 1.003 - 08/06/2020 [facility] Urine 1.035 6:15 PM [facility] Blood Urine Negative NEG^Negat 08/06/2020 [facility] shyam 6:15 PM [facility] pH Urine 5.5 5.0 - 7.0 08/06/2020 [facility] pH 6:15 PM [facility] Protein Albumin Negative NEG^Negat 08/06/2020 [facility] Urine shyam mg/dL 6:15 PM [facility] Urobilinogen Normal 0.0 - 2.0 08/06/2020 [facility] mg/dL mg/dL 6:15 PM [facility] Nitrite Urine Negative NEG^Negat 08/06/2020 [facility] shyam 6:15 PM [facility] Leukocyte Negative NEG^Negat 08/06/2020 [facility] Esterase Urine shyam 6:15 PM [facility] Source Midstream 08/06/2020 [facility] Urine 5:45 PM [facility] WBC Urine 1 0 - 5 08/06/2020 [facility] /HPF 6:15 PM [facility] RBC Urine 1 0 - 2 08/06/2020 [facility] /HPF 6:15 PM [facility] Bacteria Urine Moderate (A) NEG^Negat 08/06/2020 [facility] /HPF 6:15 PM [facility] Squamous 3 (H) 0 - 1 [facility] Epithelial /HPF /HPF 6:[address] [facility] Transitional Epi 1 0 - 1 08/06/2020 [facility] /HPF 6:15 PM [facility] Mucous Urine Present (A) NEG^Negat 08/06/2020 [facility] /LPF 6:15 PM [facility] Specimen (Source) Anatomical Collection Method Collection Time Re ceived Time Location / / Volume Laterality Examination of 08/06/2020 5:45 08/06/2020 5:50 midstream urine PM SINGLE NEEDLE TUFTING 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 PM SINGLE NEEDLE TUFTING 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 specimen (procedure) Estephania ALCALA-C LAB - URINE ORDERABLES Performing Organization Address City/[facility]/ZIP [facility] [place] [facility] [address], [place] [address] [place] [address] [phone] Troponin I (08/06/2020 4:26 PM SINGLE NEEDLE TUFTING 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) athologist Signature Troponin I ES <0.015 0.000 - 08/06/2020 [facility] 0.045 ug/L 6:08 PM [facility] Comment: The 99th percentile for upper reference range is 0.045 ug/L. ??Troponin values in the range of 0.045 - 0.120 ug/L may b e associated with risks of adverse clinical events. Specimen Anatomical Collection Method Collection Time Receive d Time (Source) Location / / Volume Laterality 08/06/2020 4:26 PM 4:41 SINGLE NEEDLE TUFTING 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 PM SINGLE NEEDLE TUFTING 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 Estephania Barragan PA-C LAB - BLOOD ORDERABLES Performing Organization Address [facility]/ZIP [facility] [place] [facility] [address], [place] [address] [facility] [address] [place], [place] [address], [facility] [phone] Nt probnp inpatient (08/06/2020 4:26 PM SINGLE NEEDLE TUFTING 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) P athologist Signature N-Terminal Pro 16 0 - 450 08/06/2020 [facility] BNP Inpatient pg/mL 6:08 PM [facility] Comment: Reference range shown and results flagge [...] Time (Source) Location / / Volume Laterality 08/06/2020 4:26 PM 4:41 SINGLE NEEDLE TUFTING 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 PM SINGLE NEEDLE TUFTING 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 Estephania DWOC LAB - BLOOD ORDERABLES Performing Organization Address City/State/ZIP Code Phon e Number [facility] [address], [place] [address] [facility] [address] [place], [place] [address] [address] [phone] (ABNORMAL) HCG quantitative (08/06/2020 4:26 PM SINGLE NEEDLE TUFTING 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) Patholo gist Method Time Signature HCG Quantitative 64,898 0 - 5 08/06/2020 [facility] Serum (H) IU/L 6:09 PM [facility] Comment: Specimen run with a dilution Specimen Anatomical Collection Method Collection Time Receive d Time (Source) Location / / Volume Laterality 08/06/2020 4:26 PM 1 4:41 SINGLE NEEDLE TUFTING 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 PM SINGLE NEEDLE TUFTING 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 Estephania ALCALA-C LAB - BLOOD ORDERABLES Performing Organization Address City/State/ZIP Code Phon e Number [facility] [address], [place] [address] [facility] [address] [phone] D dimer quantitative (08/06/2020 4:26 PM SINGLE NEEDLE TUFTING 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) P athologist Signature D Dimer 0.3 0.0 - 0.50 08/06/2020 [facility] ug/ml FEU 5:50 PM [facility] Comment: This D-dimer assay is intended for use i n conjunction with a clinical pretest probability assessment model to exclude pulmonary embolism (PE) and deep venous thrombosis (DVT) in outpatients s uspected of PE or DVT. The cut-off value is 0.5 ug/mL FEU. Specimen Anatomical Collection Method Collection Time Receive d Time (Source) Location / / Volume Laterality 08/06/2020 4:26 PM 4:41 SINGLE NEEDLE TUFTING 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 PM SINGLE NEEDLE TUFTING 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 Estephania Barragan PA-C LAB - BLOOD ORDERABLES Performing Organization Address City/State/ZIP Code Phon e Number M [place] [address] [address] [place], [place] [address] 55 7[facility] [phone] (ABNORMAL) Hepatic panel (08/06/2020 4:26 PM SINGLE NEEDLE TUFTING 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) Analysis Performed At Patho logist Time Signature Bilirubin Direct <0.1 0.0 - 0.2 08/06/2020 TOK mg/dL 6:08 PM [facility] Bilirubin Total 0.2 0.2 - 1.3 08/06/2020 TOK mg/dL 6:08 PM [facility] Albumin 3.1 (L) 3.4 - 5.0 08/06/2020 TOK g/dL 6:08 PM [facility] Protein Total 7.2 6.8 - 8.8 08/06/2020 TOK g/dL 6:08 PM [facility] Alkaline 49 40 - 150 08/06/2020 TOK Phosphatase U/L 6:08 PM [facility] ALT 19 0 - 50 U/L 08/06/2020 TOK 6:08 PM [facility] AST 11 0 - 45 U/L 08/06/2020 [facility] 6:08 PM [facility] Specimen Anatomical Collection Method Collection Time Receive d Time (Source) Location / / Volume Laterality 08/06/2020 4:26 PM 4:41 SINGLE NEEDLE TUFTING 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 PM SINGLE NEEDLE TUFTING 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 Estephania Barragan PA-C LAB - BLOOD ORDERABLES Performing Organization Address City/State/ZIP Code Phon e Number [place] [address] [address] [place], [place] 55 [facility] [address] [place], [place] [address] [place] [address] (ABNORMAL) Basic metabolic panel (08/06/2020 4:26 PM SINGLE NEEDLE TUFTING 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) athologist Signature Sodium 136 133 - 144 08/06/2020 [place] mmol/L 5:01 PM [facility] Potassium 3.4 3.4 - 5.3 08/06/2020 TOK mmol/L 5:01 PM [facility] Chloride 105 94 - 109 08/06/2020 [place] mmol/L 5:01 PM [facility] Carbon Dioxide 26 20 - 32 08/06/2020 TOK mmol/L 5:09 PM [facility] Anion Gap 5 3 - 14 08/06/2020 [place] mmol/L 5:09 PM [facility] Glucose 78 70 - 99 08/06/2020 TOK mg/dL 5:09 PM [facility] Urea Nitrogen 6 (L) 7 - 30 08/06/2020 [facility] mg/dL 5:09 PM [facility] Creatinine 0.54 0.52 - 08/06/2020 [facility] 1.04 mg/dL 5:09 PM [facility] GFR Estimate >90 >60 08/06/2020 [place] mL/min/{1. 5:09 PM [facility] 73_m2} HOSPITAL Comment: Non GFR Calc Starting 06/27/2018, serum creatinine ba sed estimated GFR (eGFR) will be calculated using the Chronic Kidney Dise ase Epidemiology Collaboration (CKD-EPI) equation. GFR Estimate If >90 >60 mL/min/{1.73_m2} 08/06/2020 5: 09 PM [facility] Comment: GFR Calc Starting 06/27/2018, serum creatinine ba sed estimated GFR (eGFR) will be calculated using the Chronic Kidney Dise ase Epidemiology Collaboration (CKD-EPI) equation. Calcium 8.9 8.5 - 10.1 mg/dL 08/06/2020 5:09 PM [facility] Specimen Anatomical Collection Method Collection Time Receive d Time (Source) Location / / Volume Laterality Blood specimen 08/06/2020 4:26 PM 021 4:41 (specimen) SINGLE NEEDLE TUFTING 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 PM SINGLE NEEDLE TUFTING 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 Estephania Barragan PA-C LAB - BLOOD ORDERABLES Performing Organization Address City/State/ZIP Code Phon e Number M [facility] [address] [place] [address] [facility] [address] [place], [place] [address], [facility] [phone] [address], [facility] (ABNORMAL) CBC with platelets differential (08/06/2020 4:26 PM [facility]) [facility] Method Time Signature WBC 9.4 4.0 - 08/06/2020 [facility] 11.0 4:45 PM [facility] 10e9/L [facility] RBC Count 4.23 3.8 - 5.2 08/06/2020 [facility] 10e12/L 4:45 PM [facility] Hemoglobin 11.2 (L) 11.7 - 08/06/2020 [facility] 15.7 g/dL 4:45 PM [facility] Hematocrit 35.5 35.0 - 08/06/2020 [facility] 47.0 % 4:45 PM [facility] MCV 84 78 - 100 08/06/2020 [facility] fl 4:45 PM [facility] MCH 26.5 26.5 - 08/06/2020 [facility] 33.0 pg 4:45 PM [facility] MCHC 31.5 31.5 - 08/06/2020 [facility] 36.5 g/dL 4:45 PM [facility] RDW 13.2 10.0 - 08/06/2020 [facility] 15.0 % 4:45 PM [facility] Platelet Count 238 150 - 450 08/06/2020 [facility] 10e9/L 4:45 PM [facility] Diff Method Automated 08/06/2020 [facility] Method 4:45 PM [facility] % Neutrophils 69.5 % 08/06/2020 [facility] 4:45 PM [facility] % Lymphocytes 19.4 % 08/06/2020 [facility] 4:45 PM [facility] % Monocytes 6.2 % 08/06/2020 [facility] 4:45 PM [facility] % Eosinophils 4.2 % 08/06/2020 [facility] 4:45 PM [facility] % Basophils 0.2 % 08/06/2020 [facility] 4:45 PM [facility] % Immature 0.5 % 08/06/2020 [facility] Granulocytes 4:45 PM [facility] Nucleated RBCs 0 0 /100 08/06/2020 [facility] 4:45 PM [facility] Absolute 6.5 1.6 - 8.3 08/06/2020 [facility] Neutrophil 10e9/L 4:45 PM [facility] Absolute 1.8 0.8 - 5.3 08/06/2020 [facility] Lymphocytes 10e9/L 4:45 PM [facility] Absolute 0.6 0.0 - 1.3 08/06/2020 [facility] Monocytes 10e9/L 4:45 PM [facility] Absolute 0.4 0.0 - 0.7 08/06/2020 [facility] Eosinophils 10e9/L 4:45 PM [facility] Absolute 0.0 0.0 - 0.2 08/06/2020 [facility] Basophils 10e9/L 4:45 PM [facility] Abs Immature 0.1 0 - 0.4 08/06/2020 [facility] Granulocytes 10e9/L 4:45 PM [facility] Absolute 0.0 08/06/2020 [facility] Nucleated RBC 4:45 PM [facility] Specimen Anatomical Collection Method Collection Time Receive d Time (Source) Location / / Volume Laterality Blood specimen 08/06/2020 4:26 PM 021 4:41 (specimen) SINGLE NEEDLE TUFTING 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 PM SINGLE NEEDLE TUFTING 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 Estephania Barragan PA-C LAB - BLOOD ORDERABLES Performing Organization Address City/State/ZIP Code Phon e Number M [facility] [address] [place], [place] [address] [facility] [address] [place], [place] [address] [facility] [phone] EKG 12 lead (08/06/2020 2:08 PM SINGLE NEEDLE TUFTING 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) [facility] gist Method Time Signature Interpretation ECG Click View RADIOLOGY Image link RESULTS to view waveform and result Specimen (Source) Anatomical Collection Method Collection Time Re ceived Time Location / / Volume Laterality 08/06/2020 2:08 PM SINGLE NEEDLE TUFTING 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 Apolinar Wray MD ECG ORDERABLES Performing Organization Address City/State/ZIP Code Phon e Number RADIOLOGY RESULTS documented in this encounter Visit Diagnoses Diagnosis Shortness of breath Chest pain Chest pain, unspecified documented in this encounter Additional Health Concerns Assessment Noted Time PHQ-9 Depression Total Score: 9 06/25/2020 7:04 AM SINGLE NEEDLE TUFTING 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 documented as of this encounter Care Teams Rn Digestive Relationship Specialty Start Date End Date Marija Edgar APRN PCP - General Nurse Practitioner 04/30/20 FAMILY INDEPENDENCE CASE MANAGER [address] [place] [address] Lita Oseguera Personal Advocate & 02/28/20 Liaison (PAL) Chanelle Mccann Assigned OBGYN Provider 05/02/20 05/09/21 [place] [address] [address] [facility] [address] [place], [place] [address] Kyara De La Fuente, VJ Specialty Care Neurology 06/04/20 03/05/21 Coordinator Marija Edgar APRN Assigned PCP 06/08/20 FAMILY INDEPENDENCE CASE MANAGER [address] [place], [place] [phone] Mynor Broussard MD Assigned Surgical 06/01/20 11/28/21 6363 [facility] Provider [address] [place] [address] Mauri Assigned Neuroscience 06/04/20 MD Keisha Provider [address] [place] [address] documented as of this encounter
--- OUTSIDE RECORDS SUMMARY | 2022-04-28 01:20 | XMS_ITS | Encounter Summary ---
:2000 Author Organization [facility] Address [address] [place] [address] Care Team Providers Name Role Phone Lita Oseguera Unavailable Unavailable Marija Edgar APRN SPECIAL EDUCATION EDUCATIONAL ASSISTANT Primary Care Provider [phone] Chanelle Mccann APRN CNM Unavailable + Kyara De La Fuente RN Unavailable Marija Edgar APRN SPECIAL EDUCATION EDUCATIONAL ASSISTANT Unavailable Mynor Broussard MD Unavailable Keisha Dotson MD Unavailable Stacey Briones FLOWER PLANTER Unavailable Lesley Moody MA Unavailable Reason for Visit Reason Comments Follow Up Encounter Details Date Type Department Care Team Description 08/26/2020 Virtual Visit [facility] Mauri, Convulsions, [address] Romina Valdes MD unspecified convulsion [place], [address] [facility] type (H) (Primary Dx) [place] [address] [phone] Social History Tobacco Use Types Packs/Day Years [...] How often do you attend zoroastrianism or hinduism services? Never 09/22/2021 Do you [...] with No / Unsure 08/31/2020 2:34 PM CYTOTECHNOLOGIST/CYTOLOGY SUPERVISOR someone who was confirmed or suspected to have Coronavirus / COVID-19? documented as of this encounter Progress Notes Keisha Dotson MD - 08/26/2020 11:30 AM CST Kim is a 20 year old who is being evaluated via a billable telephone visit. What phone number would you like to be contacted at? [phone] How would you like to obtain your AVS? MyChart Verbal Consent : yes [facility] Epilepsy Care Progress Note Patient: Kim Jhonson : 2000 Age: [age] year old Today's Phone Visit: 08/26/2020 History of Present Illness: Kim is participating in this virtual visit for a follow up on her seizures. She is currently 17 wks . She initially had worsening depression and suicidal thoughts on higher dose of levetiracetam, and was decided to switch to lamotrigine, but then she decided to try higher dose of levetiracetam. She is currently taking LVT 500 mg twice a day, and she has been feeling fine. Her mood is ok, she denies depression. She has been a little tired, but not an issue, she denies dizziness or imbalance. I reviewed her 3 hr EEG on 08/20/2019, which was normal. Today, the patient states that her last seizure was in 05/2018. Due date: 02/03/2021 Current Outpatient Medications Medication Sig Dispense Refill ??? folic acid (FOLVITE) 1 MG tablet Take 1 tablet (1 mg) by mouth 2 times daily 180 tablet 3 ??? lamoTRIgine (LAMICTAL) 25 MG tablet Take 1 tablet (25 mg) by mouth daily Take 1 tablet daily x2 weeks and then increase as instructed to 150 mg twice a day 180 tablet 1 ??? levETIRAcetam (KEPPRA) 500 MG tablet Take 1 tab twice a day for 1 week and then 1 1/2 tabs twicea day 90 tablet 3 ??? naproxen (NAPROSYN) 500 MG tablet Take 500 mg by mouth ??? omeprazole (PRILOSEC) [address] capsule Take 1 capsule (40 mg) by mouth daily 90 capsule 3 ??? Vit-Fe Fumarate-FA ( MULTIVITAMIN W/IRON) 27-0.8 MG tablet Take 1 tablet by mouth daily 90 tablet 3 ??? sertraline (ZOLOFT) 100 MG tablet TAKE ONE AND ONE-HALF TABLETS BY MOUTH EVERY DAY 135 tablet 0 Perceived AED Side Effects: Had worsening depression on LVT initially, but she is doing fine now. Review of Systems: Lethargy / Tiredness: Some tiredness, but not significant Double Vision: No Depression: Currently her mood is fine Poor Balance: No Dizziness: No Blurred Vision: No Have you experienced a traumatic fall since your last visit: NO Other Issues: Is patient safe to drive: Yes Assessment and Plan: Epilepsy, NOS: The patient states her last seizure was in May 2018. She would like to come off the medication. She argues that her uncle only had 1 seizure in his life. Although her father has epilepsy. She is also concerned about the effect of antiseizure medication on the baby. I explained that levetiracetam is a fairly safe medication and is not reported to cause major malformations. I explained that seizures, especially generalized tonic- clonic seizures have serious adverse effects onthe fetus and may cause hypoxia, injury or miscarriage. I advised it's not safe to try coming off the medication during . We may consider this after her delivery, if she stays seizure-free. - Continue levetiracetam 500 mg bid. - Obtain LVT level in the next visit with GUARD CHIEF in September. - Obtain LVT levels monthly until end of . - Follow up in 2 months. As described above, I talked with the patient for 21 minutes and during this time counseling was greater than 50% of the visit time. Keisha Dotson MD TECHNOLOGIST/CYTOLOGY SUPERVISOR documented in this encounter Plan of Treatment Upcoming Encounters Date Type Specialty Care Team Description 04/28/2022 Office Visit Family Practice Anthony Doe, [address] [address] [place], [place] [phone] (Wo rk) 05/03/2022 Office Visit Dermatology Neil Kent M D [address] [place], [place] [address] (Wo rk) 05/05/2022 Office Visit Optometry Yeny David, OD [address] [facility] [address] [place] [id number] (Wo aldo) 05/11/2022 Virtual Visit Pharm Diana Eckert , [facility] [address] [place] [address] (Wo rk) 05/14/2022 Office Visit Cardiology Livan Sharif MD [address], [facility] [address] [place] [address] (Wo rk) 05/31/2022 Office Visit Family Practice Valery Veronica , PA-C [address] [place], [place] [address] (Wo rk) documented as of this encounter Visit Diagnoses Diagnosis Convulsions, unspecified convulsion type (H) - Primary documented in this encounter Additional Health Concerns Assessment Noted Time PHQ-9 Depression Total Score: 9 06/25/2020 7:04 AM CYTOTECHNOLOGIST/CYTOLOGY SUPERVISOR documented as of this encounter Care Teams 3Rd Mate Relationship Specialty Start Date End Date Marija Edgar APRN PCP - General Nurse Practitioner 04/30/20 SPECIAL EDUCATION EDUCATIONAL ASSISTANT [address] [place], [place] [phone] Lita Oseguera Personal Advocate & 02/28/20 Liaison (PAL) Chanelle Mccann Assigned OBGYN Provider 05/02/20 05/09/21 [place] [address] [address] [facility] [address] [place], [place] [address] Kyara De La Fuente, VJ Specialty Care Neurology 06/04/20 03/05/21 Coordinator Marija Edgar APRN Assigned PCP 06/08/20 SPECIAL EDUCATION EDUCATIONAL ASSISTANT [address] [place], [place] [phone] Mynor Broussard MD Assigned Surgical 06/01/20 11/28/21 [address] [facility] Provider [address] [place] [address] Mauri, Assigned Neuroscience 06/04/20 MD Keisha Provider [address] [place] [address] Stacey Briones, FLOWER PLANTER Lead Network Field Engineer Primary Care - CC 08/11/20 12/30/20 Lesley Moody, Community Health Worker 08/11/20 10/01/20 [place] documented as of this encounter
--- OUTSIDE RECORDS SUMMARY | 2022-04-28 01:20 | XMS_ITS | Encounter Summary ---
:2000 Author Organization [facility] Address [address] [place] [address] Care Team Providers Name Role Phone Lita Oseguera Unavailable Unavailable Marija Edgar APRN PRIMARY CARE PHYSICIAN Primary Care Provider [phone] Chanelle Mccann APRN CNM Unavailable + Kyara De La Fuente RN Unavailable Marija Edgar APRN PRIMARY CARE PHYSICIAN Unavailable Mynor Broussard MD Unavailable Keisha Dotson MD Unavailable Mary Mejia Unavailable Unavailable Stacey Briones COMMUNITY SERVICE OFFICER COORDINATOR Unavailable Lesley Moody MA Unavailable Reason for Visit Reason Onset Date Comments Call Back 08/14/2020 Encounter Details Date Type Department Care Team Description 08/14/2020 Telephone [facility] Keisha Dotson, Call Back [address] Romina Moreno MD [address] [place], [place] [address] [place] [address] (Wo rk) Social History Tobacco [...] How often do you attend druze or tenriism services? Never 09/22/2021 Do you [...] been in contact with No / Unsure 08/16/2020 1:07 PM PRACTICE SUPPORT SPECIALIST someone who was confirmed or suspected to have Coronavirus / COVID-19? documented as of this encounter Miscellaneous Notes Telephone Encounter - Kyara De La Fuente RN - 08/14/2020 5:03 PM CST I spoke with Kim today. She is hoping to retrial increasing keppra and has concerns about increasing keppra and starting lamotrigine at the same time; she worries that if she has a side effect that she won't know which medication that it is from. Her keppra level came back at <2. Routing message to provider. ADDENDUM 08/19/[address] Murray. V/o received to increase keppra as previously ordered in May 500mg BID for a week and then 750 mg BID thereafter, hold on lamotrigine titration. This was communicated to the patient. I advised her to be mindful and watchful for symptoms of depression with the increase in dose since this was the concern with the initial dosing. She is agreeable and confirmed intention to have EEG done tomorrow. She asks if the EEG is normal, can she stop medications. I advised that this is a complicated question that will need to be reviewed with Dr. Murray. TICE SUPPORT SPECIALIST Telephone Encounter - Yfn Peck MA - 08/14/2020 3:07 PM CST What is the concern that needs to be addressed by a nurse? Patient would like a call back regarding her keppra level , see results in chart and would like to know if she needs to do anything different with her med. May a detailed message be left on voicemail? yes Date of last office visit: 08/12/2020 Message routed to: [facility] ZABALA POOL TICE SUPPORT SPECIALIST documented in this encounter Plan of Treatment Upcoming Encounters Date Type Specialty Care Team Description 04/28/2022 Office Visit Family Practice Anthony Doe, [place] [address] [place], [place] [phone] (Wo rk) 05/03/2022 Office Visit Dermatology Neil Kent M D [address] [place] [address] (Wo rk) 05/05/2022 Office Visit Optometry Yeny David, OD [address] [facility] [facility] [place] [address] (Wo rk) 05/11/2022 Virtual Visit Pharm D Diana Desir , [facility] [address] [place] [address] (Wo rk) 05/14/2022 Office Visit Cardiology Livan Sharif MD [address] [facility] [address] [place], [place] [address] (Wo rk) 05/31/2022 Office Visit Family Practice Valery Veronica PA-C [address] [place], [place] [address] (Wo rk) documented as of this encounter Visit Diagnoses Not on filedocumented in this encounter Additional Health Concerns Assessment Noted Time PHQ-9 Depression Total Score: 9 06/25/2020 7:04 AM PRACTICE SUPPORT SPECIALIST documented as of this encounter Care Teams Clarifier Operator Relationship Specialty Start Date End Date Marija Edgar APRN PCP - General Nurse Practitioner 04/30/20 PRIMARY CARE PHYSICIAN [address] [place], [place] [phone] Lita Oseguera Personal Advocate & 02/28/20 Liaison (PAL) Chanelle Mccann Assigned OBGYN Provider 05/02/20 05/09/21 ARLENE Mooney [facility] [address] [facility] [address] [place], [place] [address] Kyara De La Fuente, VJ Specialty Care Neurology 06/04/20 03/05/21 Coordinator Marija Edgar APRN Assigned PCP 06/08/20 PRIMARY CARE PHYSICIAN [address] [place], [place] [phone] Mynor Broussard MD Assigned Surgical 06/01/20 11/28/21 [address] Provider [address] [place], [place] [address] Keisha Dotson, Assigned Neuroscience 06/04/20 Provider [address] [place], [place] [address] Mary Mejia Financial Resource 08/07/2008/11 Worker Stacey Briones, COMMUNITY SERVICE OFFICER COORDINATOR Lead Supervisor Record Press Primary Care - CC 08/11/20 12/30/20 Lesley Moody, Community Health Worker 08/11/20 10/01/20 MD documented as of this encounter
--- OUTSIDE RECORDS SUMMARY | 2022-04-28 01:20 | XMS_ITS | Encounter Summary ---
:2000 Author Organization [place] Address [address] [place] [address] Care Team Providers Name Role Phone Lita Oesguera Unavailable Unavailable Marija Edgar APRN GEOPHYSICAL OBSERVER Primary Care Provider [phone] Chanelle Mccann APRN CNM Unavailable + Kyara De La Fuente RN Unavailable Marija Edgar APRN GEOPHYSICAL OBSERVER Unavailable Mynor Broussard MD Unavailable Keisha Dotson MD Unavailable Mary Mejia Unavailable Unavailable Stacey Briones USER EXPERIENCE MANAGER Unavailable Lesley Moody MA Unavailable Encounter Details Date Type Department Care Team Description 08/12/2020 Orders Only [facility] Con vulsions, unspecified [place] [facility] convulsion type (H) [address] [place] [address] Social History Tobacco Use Types Packs/Day Years [...] How often do you attend anabaptism or mosque services? Never 09/22/2021 Do you [...] been in contact with No / Unsure 08/12/2020 2:09 PM GO GO DANCER someone who was confirmed or suspected to have Coronavirus / COVID-19? documented as of this encounter Plan of Treatment Upcoming Encounters Date Type Specialty Care Team Description 04/28/2022 Office Visit Family Practice Anthony Doe PA-C [address] [place], [place] [phone] (Wo rk) 05/03/2022 Office Visit Dermatology Neil Kent M D [address] [place] [phone] (Wo rk) 05/05/2022 Office Visit Optometry Yeny David, OD [address] [facility] [address] [place], [place] [phone] (Wo rk) 05/11/2022 Virtual Visit Pharm Diana Eckert , [facility] [address] [place], [place] [address] (Wo rk) 05/14/2022 Office Visit Cardiology Livan Sharif MD [address] [place], [place] [address] (Wo rk) 05/31/2022 Office Visit Family Practice Valery Veronica , PABaldo [address] [place] [address] (Wo rk) documented as of this encounter Procedures Procedure Name Priority Date/Time Associated Diagnosis Comme nts KEPPRA Routine 08/12/2020 2:11 PM Convulsions, Results f or this (LEVETIRACETAM) GO GO DANCER unspecified procedure ar e in LEVEL convulsion type (H) the resu lts section. documented in this encounter Results (ABNORMAL) Keppra (Levetiracetam) Level (08/12/2020 2:11 PM GO GO DANCER) P athologist Signature Keppra <2 (L) 12 - 46 08/14/2020 CECE (Levetiracetam ug/mL 1:46 PM GO GO DANCER [facility] Comment: (Note) INTERPRETIVE INFORMATION: Keppra (Leveti racetam) Therapeutic Range: ??12-46 ug/mL ? Toxic: ??Not well Establ ished Pharmacokinetics of levetiracetam are af fected by renal function. Adverse effects may include so mnolence, weakness, headache and vomiting. This levetiracetam (Keppra) immunoassay uses the [employer] reagents, which has known cr oss-reactivity with the drug brivaracetam (Briviact) and may report inaccurate results. Patients transitioning from lev etiracetam to brivaracetam or those who are using both medications should not monitor drug concentrations with the [employer] Diagnostics assay. These patients should be monitore d using a validated chromatographic methodology that disting uishes between drugs to determine drug concentrations. Performed By: [employer] [address] [place] [address] Vascular Radiologist: Deidra Ocampo MD Specimen Anatomical Collection Method Collection Time Receive d Time (Source) Location / / Volume Laterality Blood specimen 08/12/2020 2:11 PM 021 2:12 (specimen) GO GO DANCER PM GO GO DANCER Keisha Dotson MD LAB - BLOOD ORDERABLES Performing Organization Address City/State/ZIP Code Phon e Number [facility] [id number] [place] [phone] documented in this encounter Visit Diagnoses Diagnosis Convulsions, unspecified convulsion type (H) documented in this encounter Additional Health Concerns Assessment Noted Time PHQ-9 Depression Total Score: 9 06/25/2020 7:04 AM GO GO DANCER documented as of this encounter Care Teams Director Employment Relationship Specialty Start Date End Date Marija Edgar APRN PCP - General Nurse Practitioner 04/30/20 GEOPHYSICAL OBSERVER [address] [place], [place] [phone] Lita Oseguera Personal Advocate & 02/28/20 Liaison (PAL) Chanelle Mccann Assigned OBGYN Provider 05/02/20 05/09/21 RALENE Mooney [facility] [address] [facility] [address] [place] [address] Kyara De La Fuente, VJ Specialty Care Neurology 06/04/20 03/05/21 Coordinator Marija Edgar APRN Assigned PCP 06/08/20 GEOPHYSICAL OBSERVER [address] [place], [place] [phone] Mynor Broussard MD Assigned Surgical 06/01/20 11/28/21 0[address] [facility] Provider 500 [place] [address] Keisha Dotson, Assigned Neuroscience 06/04/20 Provider 909 [place] [address] Mary Mejia Financial Resource 08/07/2008/11 Worker Stacey Briones, USER EXPERIENCE MANAGER Lead Cdl Bulk Driver Primary Care - CC 08/11/20 12/30/20 Lesley Moody, Community Health Worker 08/11/20 10/01/20 [place] documented as of this encounter
--- OUTSIDE RECORDS SUMMARY | 2022-04-28 01:20 | XMS_ITS | Encounter Summary ---
:2000 Author Organization [place] Address [address] [place] [address] Care Team Providers Name Role Phone Lita Oseguera Unavailable Unavailable Marija Edgar APRN TERMITE TREATER HELPER Primary Care Provider [phone] Chanelle Mccann APRN CNM Unavailable + Kyara De La Fuente RN Unavailable Marija Edgar APRN TERMITE TREATER HELPER Unavailable Mynor Broussard MD Unavailable Keisha Dotson MD Unavailable Mary Mejia Unavailable Unavailable Stacey Briones METROLOGY TECHNICIAN Unavailable Lesley Moody MA Unavailable Reason for Visit Reason Onset Date Comments Forms 08/21/2020 Encounter Details Date Type Department Care Team Description 08/21/2020 Telephone [facility] Keisha Dotson, Forms [address] MD [address] [place], [place] [address] [place] [address] (Wo rk) Social History Tobacco [...] How often do you attend buddhism or sabianist services? Never 09/22/2021 Do you [...] been in contact with No / Unsure 08/20/2020 12:47 PM BUGGY LADLE TENDER someone who was confirmed or suspected to have Coronavirus / COVID-19? documented as of this encounter Miscellaneous Notes Telephone Encounter - Yfn Peck MA - 08/28/2020 3:52 PM CST DMV form signed, faxed to [employer] on 08/28/2020, sent to scanning, and copy mailed to patient. Y LADLE TENDER Telephone Encounter - Kyara De La Fuente RN - 08/27/2020 5:00 PM CST DMV form prepared for MD. Y LADLE TENDER Telephone Encounter - Yfn Peck MA - 08/21/2020 4:18 PM CST Received DMV form to be completed, form saved to [employer] and encounter routed. Y LADLE TENDER documented in this encounter Plan of Treatment Upcoming Encounters Date Type Specialty Care Team Description 04/28/2022 Office Visit [facility] Anthony Doe, PAUcheC [address] [place], [place] [phone] (Wo rk) 05/03/2022 Office Visit Dermatology Neil Kent M D [address] [place], [place] [address] (Wo rk) 05/05/2022 Office Visit Optometry Yeny David, OD [address] [place] [address] (Wo rk) 05/11/2022 Virtual Visit Pharm D Diana Desir , [facility] [address] [place], [place] [address] (Wo rk) 05/14/2022 Office Visit Cardiology Livan Sharif MD [address] [facility] [address] [place], [place] [address] (Wo rk) 05/31/2022 Office Visit Family [facility] Valery Veronica , PAUcheC [address] [place], [place] [address] (Wo rk) documented as of this encounter Visit Diagnoses Not on filedocumented in this encounter Additional Health Concerns Assessment Noted Time PHQ-9 Depression Total Score: 9 06/25/2020 7:04 AM BUGGY LADLE TENDER documented as of this encounter Care Teams Quality Control Manager Relationship Specialty Start Date End Date Marija Edgar APRN PCP - General Nurse Practitioner 04/30/20 TERMITE TREATER HELPER [address] [place] [address] Lita Oseguera Personal Advocate & 02/28/20 Liaison (PAL) Chanelle Mccann Assigned OBGYN Provider 05/02/20 05/09/21 [place] [address] [facility] [address] [place], [place] [address] Kyara De La Fuente, VJ Specialty Care Neurology 06/04/20 03/05/21 Coordinator Marija Edgar APRN Assigned PCP 06/08/20 TERMITE TREATER HELPER [address] [place] [address] Mynor Broussard MD Assigned Surgical 06/01/20 11/28/21 6[address] [facility] Provider 500 [place], [place] [address] Keisha Dotson, Assigned Neuroscience 06/04/20 Provider 909 [place], [place] [address] Mary Mejia Financial Resource 08/07/2008/11 Worker Stacey Briones, METROLOGY TECHNICIAN Lead Ditch Worker Primary Care - CC 08/11/20 12/30/20 Lesley Moody, Community Health Worker 08/11/20 10/01/20 [place] documented as of this encounter
--- OUTSIDE RECORDS SUMMARY | 2022-04-28 01:20 | XMS_ITS | Encounter Summary ---
:2000 Author Organization [place] Address [address] [place] [address] Care Team Providers Name Role Phone Lita Oseguera Unavailable Unavailable Marija Edgar APRN INSTRUCTOR WEAVING Primary Care Provider [phone] Chanelle Mccann APRN CNM Unavailable + Kyara De La Fuente RN Unavailable Marija Edgar APRN INSTRUCTOR WEAVING Unavailable Mynor Broussard MD Unavailable Keisha Dotson MD Unavailable Mary Mejia Unavailable Unavailable Stacey BrionesW Unavailable Lesley Moody MA Unavailable Encounter Details Date Type Department Care Team Description 08/12/2020 Travel Social History Tobacco Use Types Packs/Day [...] How often do you attend yazidi or quaker services? Never 09/22/2021 Do you [...] with No / Unsure 08/12/2020 2:09 PM FAMILY PRACTICE PHYSICIAN someone who was confirmed or suspected to have Coronavirus / COVID-19? documented as of this encounter Plan of Treatment Upcoming Encounters Date Type Specialty Care Team Description 04/28/2022 Office Visit Family Practice Anthony Doe PA-C [address] [place], [place] [phone] (Wo rk) 05/03/2022 Office Visit Dermatology Neil Kent M D [address] [place] [phone] (Wo rk) 05/05/2022 Office Visit Optometry Yeny David, OD [address] [facility] [address] [place] [phone] (Wo rk) 05/11/2022 Virtual Visit Pharm D Diana Desir , [facility] [address] [place], [place] [address] (Wo rk) 05/14/2022 Office Visit Cardiology Livan Sharif MD [address], [facility] [address] [place], [place] [address] (Wo rk) 05/31/2022 Office Visit Family Practice Valery Veronica , PAUcheC [address] [place], [place] [address] (Wo rk) documented as of this encounter Visit Diagnoses Not on filedocumented in this encounter Additional Health Concerns Assessment Noted Time PHQ-9 Depression Total Score: 9 06/25/2020 7:04 AM FAMILY PRACTICE PHYSICIAN documented as of this encounter Care Teams Salesperson Sewing Machines Relationship Specialty Start Date End Date Marija Edgar APRN PCP - General Nurse Practitioner 04/30/20 INSTRUCTOR WEAVING [address] [place] [address] Lita Oseguera Personal Advocate & 02/28/20 Liaison (PAL) Chanelle Mccann Assigned OBGYN Provider 05/02/20 05/09/21 [place] [address] [address] [facility], [facility] 200 [place], [place] [address] Kyara De La Fuente, VJ Specialty Care Neurology 06/04/20 03/05/21 Coordinator Marija Edgar APRN Assigned PCP 06/08/20 INSTRUCTOR WEAVING [address] [place], [place] [phone] Mynor Broussard MD Assigned Surgical 06/01/20 11/28/21 [address] [facility] Provider [address] [place] [address] Keisha Dotson, Assigned Neuroscience 06/04/20 MD Provider [address] [place] [address] Mary Mejia Financial Resource 08/07/2008/11 Worker Stacey Briones, ACCESS CONTROL SPECIALIST Lead Claims Supervisor Primary Care - CC 08/11/20 12/30/20 Lesley Moody, Community Health Worker 08/11/20 10/01/20 [place] documented as of this encounter
--- OUTSIDE RECORDS SUMMARY | 2022-04-28 01:20 | XMS_ITS | Encounter Summary ---
:2000 Author Organization [place] Address [address] [place] [address] Care Team Providers Name Role Phone Lita Oseguera Unavailable Unavailable Marija Edgar APRN CABIN SUPERVISOR Primary Care Provider [phone] Chanelle Mccann APRN CNM Unavailable + Kyara De La Fuente RN Unavailable Marija Edgar APRN CABIN SUPERVISOR Unavailable Mynor Broussard MD Unavailable Keisha Dotson MD Unavailable Mary Mejia Unavailable Unavailable Stacey Briones MANAGER PRIVACY Unavailable Lesley Moody MA Unavailable Reason for Visit Reason Comments Follow Up Encounter Details Date Type Department Care Team Description 08/12/2020 Virtual Visit [facility] Mauri Convulsions, [address] Romina Valdes MD unspecified convulsion [place], [address] 9[address] [facility] type (H) (Primary Dx) [place] [address] [phone] Social History Tobacco Use Types Packs/Day Years [...] How often do you attend nondenominational or protestant services? Never 09/22/2021 Do you belong to [...] with No / Unsure 08/16/2020 1:07 PM CLOTHES MARKER someone who was confirmed or suspected to have Coronavirus / COVID-19? documented as of this encounter Patient Instructions Patient InstructionsKeisha Dotson MD - 08/12/2020 1:00 PM CST Times of Days am pm Medication Tablet Size Number of Tablets/Capsules Total Daily Dosage lamotrigine 25 mg wk 1 and 2 0 1 wk 3 and 4 1 1 wk 5 2 2 wk 6 3 3 wk 7 4 4 wk 8 5 5 wk 9 and after 6 6 Carry this with you at all times. CONTINUE TAKING YOUR OTHER MEDICATIONS PREVIOUSLY DIRECTED. * * *Do not store medications in the bathroom. Keep medications away from children!* * * HES MARKER documented in this encounter Progress Notes Keisha Dotson MD - 08/12/2020 1:00 PM CST Kim is a 20 year old who is being evaluated via a billable telephone visit. What phone number would you like to be contacted at? [phone] How would you like to obtain your AVS? MyChart Phone call duration: 26 minutes [facility] Progress Note Patient: Kim Johnson : 2000 Age: [age] year old Today's virtual Visit: 08/12/2020 History of Present Illness: Ms. Kim Johnson is participating in this virtual visit for follow-up on her seizures. She was last seen 06/04/2020. She has not had any seizures since then. She has been taking levetiracetam 500 mg daily only. She is feeling depressed and had a suicidal thought when she was on a higher dose of Xmzwas075 mg bid. She was getting off zonisamide at that time. Currently her depressed mood and suicidal thoughts improved. She is 15 wks now. She is taking folic acid 1 mg twice a day and multivitamin. Current Outpatient Medications Medication Sig Dispense Refill [...] 135 tablet 0 Perceived AED Side Effects: [place] depressed and had suicidal thoughts on higher dose of levetiracetam. Medication Notes: AED Medication Compliance: noncompliant much of the time. Assessment and Plan: Convulsions, NOS: Patient had an episode of convulsion about 1-1/2 years ago and couple nocturnal events concerning for seizures. She follow-up [facility] clinic of neurology which according to their notes the patient had multiple episodes concerning for seizures. Her EEG there and 2020 was essentially normal. The patient had suicidal thoughts and depression on levetiracetam 500 mg twice a day, therefore she decreased it to 500 mg daily. She questions if she needs to continue medication, as she doubts her diagnosis of epilepsy. The patient is 15 weeks . I advised the patient that she needs to take an antiseizure medication, as seizures especially GTC seizures can be very harmful to her baby. I discussed switching to lamotrigine which is a fairly safe medication during . I gave her instructions for titrating up lamotrigine. She will need to continue levetiracetam until she getsto the therapeutic level of lamotrigine. Spent several minutes counseling for medication compliance.She will also need to have a 3-hour video EEG to look for interictal abnormalities. -Start lamotrigine 25 mg daily and increase to 150 mg twice a day as instructed. -Continue levetiracetam until lamotrigine level is therapeutic. - Obtain levetiracetam level for efficacy and compliance. - Obtain lamotrigine level in 8 weeks. - Follow up in 2 months. As described above, I talked with the patient for 26 minutes and during this time counseling and answering the patient's questions was greater than 50% of the visit time. This note was created in part by the use of SeeFuture voice recognition system. Inadvertent grammatical errors and typographical errors may still exist. Keisha Dotson MD HES MARKER documented in this encounter Plan of Treatment Upcoming Encounters Date Type Specialty Care Team Description 04/28/2022 Office Visit Family Practice Anthony Doe PA-C [address] [place], [place] [phone] (Wo rk) 05/03/2022 Office Visit Dermatology Neil Kent M D [address] [place], [place] [address] (Wo rk) 05/05/2022 Office Visit Optometry Yeny David, OD [address] [facility] [address] [place], [place] [phone] (Wo rk) 05/11/2022 Virtual Visit Pharm D Diana Desir , [facility] [address] [place], [place] [address] (Wo rk) 05/14/2022 Office Visit Cardiology Livan Sharif MD [address] [facility] [address] , [facility] [address] [place], [place] [address] (Wo rk) 05/31/2022 Office Visit Family Practice Valery Veronica PABaldo 909 [place] [address] (Wo rk) documented as of this encounter Results (ABNORMAL) Keppra (Levetiracetam) Level (08/12/2020 2:11 PM CLOTHES MARKER) athologist Signature Keppra <2 (L) 12 - 46 08/14/2020 LUZERNE (Levetiracetam ug/mL 1:[address] [facility] ) [facility] Comment: (Note) INTERPRETIVE INFORMATION: Keppra (Leveti racetam) Therapeutic Range: ??12-46 ug/mL ? Toxic: ??Not well Establ ished Pharmacokinetics of levetiracetam are af fected by renal function. Adverse effects may include so mnolence, weakness, headache and vomiting. This levetiracetam (Keppra) immunoassay uses the [employer] reagents, which has known cr oss-reactivity with the drug brivaracetam (Briviact) and may report inaccurate results. Patients transitioning from lev etiracetam to brivaracetam or those who are using both medications should not monitor drug concentrations with the [employer] assay. These patients should be monitore d using a validated chromatographic methodology that disting uishes between drugs to determine drug concentrations. Performed By: [facility] [address] [place] [address] Cellulose Insulation Helper: Deidra Ocampo MD Specimen Anatomical Collection Method Collection Time Receive d Time (Source) Location / / Volume Laterality Blood specimen 08/12/2020 2:11 PM 021 2:12 (specimen) CLOTHES MARKER PM CLOTHES MARKER Keisha Dotson MD LAB - BLOOD ORDERABLES Performing Organization Address City/State/[facility] Code Phon e Number [address] [address] documented in this encounter Visit Diagnoses Diagnosis Convulsions, unspecified convulsion type (H) - Primary documented in this encounter Additional Health Concerns Assessment Noted Time PHQ-9 Depression Total Score: 9 06/25/2020 7:04 AM CLOTHES MARKER documented as of this encounter Care Teams Laundry Operator Relationship Specialty Start Date End Date Marija Edgar APRN PCP - General Nurse Practitioner 04/30/20 CABIN SUPERVISOR [address] [place], [place] [phone] Lita Oseguera Personal Advocate & 02/28/20 Liaison (PAL) Chanelle Mccann Assigned OBGYN Provider 05/02/20 05/09/21 ARLENE Mooney [facility] [address] [address] [facility], [facility] 200 [place] [address] Kyara De La Fuente, VJ Specialty Care Neurology 06/04/20 03/05/21 Coordinator Marija Edgar APRN Assigned PCP 06/08/20 CABIN SUPERVISOR [address] [place], [place] [phone] Mynor Broussard MD Assigned Surgical 06/01/20 11/28/21 [address] [facility] Provider 500 [place], [place] [address] Keisha Dotson, Assigned Neuroscience 06/04/20 Provider 909 [place] [address] Mary Mejia Financial Resource 08/07/2008/11 Worker Stacey Briones, MANAGER PRIVACY Lead Beam Builder Helper Primary Care - CC 08/11/20 12/30/20 Lesley Moody, Community Health Worker 08/11/20 10/01/20 [place] documented as of this encounter
--- OUTSIDE RECORDS SUMMARY | 2022-04-28 01:20 | XMS_ITS | Encounter Summary ---
:2000 Author Organization [place] Address [address] [place] [address] Care Team Providers Name Role Phone Lita Oseguera Unavailable Unavailable Marija Edgar APRN DIRECTOR REVENUE Primary Care Provider Chanelle Mccann APRN CNM Unavailable + Kyara De La Fuente RN Unavailable Marija Edgar APRN DIRECTOR REVENUE Unavailable Mynor Broussard MD Unavailable Keisha Dotson MD Unavailable Encounter Details Date Type Department Care Team Description 08/06/2020 Travel Social History Tobacco Use Types Packs/Day [...] How often do you attend yazidi or lutheran services? Never 09/22/2021 Do you [...] or slept in a penitentiary (including now)? Sex Assigned at Date Recorded Female 03/02/2021 5:45 PM CDT COVID-19 Exposure Response Date Recorded In the last month, have you been in contact with No / Unsure 08/06/2020 2:03 PM UTILITY TENDER CARDING someone who was confirmed or suspected to have Coronavirus / COVID-19? documented as of this encounter Plan of Treatment Upcoming Encounters Date Type Specialty Care Team Description 04/28/2022 Office Visit Family Practice Anthony Doe, ROVERTO [address] [place] [address] (Wo rk) 05/03/2022 Office Visit Dermatology Neil Kent M D 500 [place], [place] [address] (Wo rk) 05/05/2022 Office Visit Optometry Yeny David, OD [address] [facility] [address] [place] [phone] (Wo rk) 05/11/2022 Virtual Visit Pharm D Diana Desir , [facility] [address] [place], [place] [address] (Wo rk) 05/14/2022 Office Visit Cardiology Livan Sharif MD [address], [facility] [address] [place] [address] (Wo rk) 05/31/2022 Office Visit Family Practice Valery Veronica PA-C 9 [place] [address] (Wo rk) documented as of this encounter Visit Diagnoses Not on filedocumented in this encounter Additional Health Concerns Assessment Noted Time PHQ-9 Depression Total Score: 9 06/25/2020 7:04 AM UTILITY TENDER CARDING documented as of this encounter Care Teams Icu Clerk Relationship Specialty Start Date End Date Marija Edgar APRN PCP - General Nurse Practitioner 04/30/20 DIRECTOR REVENUE [address] [place], [place] [phone] Lita Oseguera Personal Advocate & 02/28/20 Liaison (PAL) Chanelle Mccann Assigned OBGYN Provider 05/02/20 05/09/21 [place] [address] [address] [facility] 200 [place] [address] Kyara De La Fuente RN Specialty Care Neurology 06/04/20 03/05/21 Coordinator Marija Edgar APRN Assigned PCP 06/08/20 DIRECTOR REVENUE [address] [place], [place] [phone] Mynor Broussard MD Assigned Surgical 06/01/20 11/28/21 [address] [facility] Provider 500 [place] [address] Mauri, Assigned Neuroscience 06/04/20 MD Keisha Provider [address] [place] [address] documented as of this encounter
--- OUTSIDE RECORDS SUMMARY | 2022-04-28 01:20 | XMS_ITS | Encounter Summary ---
:2000 Author Organization [place] Address [facility] [place] [address] Care Team Providers Name Role Phone Lita Oseguera Unavailable Unavailable Marija Edgar APRN [employer] Primary Care Provider [phone] Chanelle Mccann APRN CNM Unavailable + Kyara De La Fuente RN Unavailable Marija Edgar APRN [employer] Unavailable Mynor Broussard MD Unavailable Keisha Dtoson MD Unavailable Mary Mejia Unavailable Unavailable Stacey Briones PRODUCTION CONTROL MANAGER Unavailable Lesley Moody MA Unavailable Reason for Visit Reason Comments Urgent Care Palpitations 16 weeks , chest jaquan n-sharp and hard to breathe sometimes x 2 hours ago Encounter Details Date Type Department Care Team Description 08/16/2020 Office Visit [facility] Yolande Mora Palpita tions (Primary Urgent Care Tiago woods MD Dx) [address] [place], [place] [address] [address] [place], [place] [phone] [id number] Social History Tobacco Use Types Packs/Day Years [...] How often do you attend pentecostal or taoist services? Never 09/22/2021 Do you [...] with No / Unsure 08/16/2020 1:07 PM GROUP FITNESS MANAGER someone who was confirmed or suspected to have Coronavirus / COVID-19? documented as of this encounter Last Filed Vital Signs Vital Sign Reading Time Taken Comments Blood Pressure 102/68 08/16/2020 1:17 PM GROUP FITNESS MANAGER Pulse 88 08/16/2020 1:17 PM GROUP FITNESS MANAGER Temperature 36.8 ??C (98.2 ??F) 08/16/2020 1:17 PM GROUP FITNESS MANAGER Respiratory Rate - - Oxygen Saturation 98% 08/16/2020 1:17 PM GROUP FITNESS MANAGER Inhaled Oxygen Concentration - - Weight 86.6 kg (191 lb) 08/16/2020 1:17 PM GROUP FITNESS MANAGER Height - - Body Mass Index 30.37 07/30/2020 5:01 PM GROUP FITNESS MANAGER documented in this encounter Patient Instructions Patient InstructionsYolande Mora MD - 08/16/2020 1:10 PM CST Images from the original note were not included. Patient Education Heart Palpitations Palpitations are the feeling that your heart is beating hard, fast, or irregular. Some describe it as pounding, flip-flopping in the chest, or skipped beats. Palpitations may occur in someone with heart disease. But they can also occur in a healthy person. Heart-related causes: ?? Heart rhythm problem (arrhythmia) ?? Heart valve disease ?? Disease of the heart muscle (cardiomyopathy) ?? Coronary artery disease ?? High blood pressure Ifh-rzcyt-zpkghoz causes: ?? Certain medicines such as asthma inhalers and decongestants ?? Some herbal supplements, energy drinks and pills, and weight loss pills ?? Illegal stimulant drugs such as cocaine, crank, methamphetamine, PCP, bath salts, and ecstasy ?? Caffeine, alcohol, and tobacco ?? Health conditions such as thyroid disease, anemia, anxiety, and panic disorder Sometimes the cause can't be found. Home care Follow these home care tips: ?? Don't use too much caffeine, alcohol, or tobacco, or any stimulant drugs. ?? Tell your doctor about any prescription or lkzi-lam-jsjazyc or herbal medicines you take. Follow-up care ?? Follow up with your doctor, or as advised. Call 911 This is the fastest and safest way to get to the emergency department. The paramedics can also starttreatment on the way to the hospital, if needed. Don't wait until your symptoms are severe to call 911. These are reasons to call 911: ?? Chest pain ?? Shortness of breath ?? Feeling lightheaded, faint, or dizzy, or losing consciousness ?? Very irregular heartbeat ?? Rapid heartbeat that makes you uncomfortable ?? Slower than usual heart rate along with symptoms ?? Chest pain with weakness, dizziness,??heavy sweating, nausea, or vomiting ?? Extreme drowsiness, confusion, or weakness ?? Weakness of an arm or leg, or on one side of the face ?? Trouble with speech or vision When to seek medical advice Call your healthcare provider right away if you have palpitations that last longer than normal, or are different from your past palpitations. [employer] last reviewed this educational content on 05/11/2019 ?? [id number] [employer]. [address] [place] [address]. All rights reserved. This information is not intended as a substitute for professional medical care. Always follow your healthcare professional's instructions. Patient Education Understanding Heart Palpitations Heart palpitations are the feeling you have when your heartbeat seems to be racing, pounding, skipping, or fluttering. Heart palpitations are most often felt in the chest. Sometimes, they may also be felt in the neck. What causes heart palpitations? In most cases, heart palpitations are caused by: ?? Stress or anxiety ?? Exercise ? Some medicines ?? Caffeine ?? Nicotine ?? Alcohol ?? Illegal drugs, such as cocaine ?? Health problems, such as anemia or overactive thyroid Many heart palpitations are harmless. But in some cases, palpitations may be caused by a problem with the heart such as an abnormal heart rhythm (arrhythmia). They may need to be managed by you and your healthcare provider or treated right away. How are heart palpitations treated? Treatments for heart palpitations depend on the cause. Options may include: ?? Managing the things that trigger your heart palpitations. This could mean: ? Learning ways to reduce stress and anxiety ? Staying away from caffeine, nicotine, alcohol, and illegal drugs ? Stopping the use of certain medicines, under your doctor???s guidance ?? Medicines, procedures, or surgery to treat an arrhythmia or other health problem that is causing your symptoms What are possible complications of heart palpitations? Complications of heart palpitations are rare unless they are caused by a problem such as an arrhythmia. In such cases, complications can include: ?? Fainting ?? Heart failure. This problem occurs when the heart is so weak it no longer pumps blood well. ?? Blood clots and stroke ?? Sudden cardiac arrest. This problem occurs when the heart suddenly stops beating. When should I call my healthcare provider? Call your healthcare provider right away if you have any of these: ?? Palpitations that prevent you from sleeping or otherwise affect your quality of life. ?? Symptoms that don???t get better with treatment, or symptoms that get worse ?? New symptoms, such as chest pain, shortness of breath, dizziness, or fainting Colin last reviewed this educational content on 12/09/2018 ?? 8695-1053 [employer]. [address] [place] [address]. All rights reserved. This information is not intended as a substitute for professional medical care. Always follow your healthcare professional's instructions. P FITNESS MANAGER documented in this encounter Progress Notes Yolande Mora MD - 08/16/2020 1:10 PM CST Chief Complaint Patient presents with ??? Urgent Care ??? Palpitations 16 weeks , chest pain-sharp and hard to breathe sometimes x 2 hours ago Medical Decision Making: Differential Diagnosis: Cardiac: PalpitationsAtrial FibrillationAtrial FlutterSupraventricular TachycardiaPericarditisPanic/Anxiety Kim was seen today for urgent care and palpitations. Diagnoses and all orders for this visit: Palpitations - EKG 12-lead complete w/read - Clinics - TSH with free T4 reflex See orders in Epic Pt verbalized and agreed with the plan and is aware of the worsening symptoms for which would need to follow up . Pt was stable during time of discharge from the clinic Review of prior external note(s) Review of the result(s) of each unique test -EKG non specific st t wave changes As she is not having any acute SOB I do not think any further work up needs to be done Time spent on the date of the encounter doing chart review, review of test results, interpretation of tests, patient visit and documentation If not improving or if conditions worsens over the next 12-24 hours, go to the Emergency Department Kim Johnson is a 20 year old female presenting with a chief complaint of Chief Complaint Patient presents with ??? Urgent Care ??? Palpitations 16 weeks , chest pain-sharp and hard to breathe sometimes x 2 hours ago Cardiac Event She is 15 weeks Had a thorough work up in the ER 10 days back She was on the ZIO patch Symptom Onset: 2 hour(s) ago. Timing of illness: sudden onset. Current and Associated symptoms: palpitations. Character: n/a. Severity mild. Location: left chest. Radiation: none. Associated Symptoms: none. Exacerbated by: nothing. Relieved by: nothing. Cardiac risk factors: none. Past Medical History: Diagnosis Date ??? Anxiety ??? Chronic kidney disease ??? Depressive disorder ??? Eczema ??? Gastroesophageal reflux disease ??? Seizure (H) 05/02/2019 Current Outpatient Medications Medication Sig Dispense Refill [...] Maternal Grandfather ??? Brain Tumor Sister ROS: 10 point ROS of systems including Constitutional, Eyes, Respiratory, Gastroenterology, Genitourinary, Integumentary, Muscularskeletal, Psychiatric ,neurological were all negative except for pertinent positives noted in my HPI OBJECTIVE: BP 102/68 Pulse 88 Temp 98.2 ??F (36.8 ??C) (Oral) Wt 86.6 kg (191 lb) LMP 05/05/2020 ZuQ302% BMI 30.37 kg/m?? GENERAL APPEARANCE: healthy, alert and no [...] HSM or masses and bowel sounds normal SKIN: no suspicious lesions or rashes PSYCH: mentation appears normal Physical Exam (Note was completed, in part, with [employer] voice-recognition software. Documentation reviewed, but some grammatical, spelling, and word errors may remain.) Yolande Mora MD P FITNESS MANAGER documented in this encounter Plan of Treatment Upcoming Encounters Date Type Specialty Care Team Description 04/28/2022 Office Visit Family Practice Anthony Doe, [place] [address] [place] [address] (Wo rk) 05/03/2022 Office Visit Dermatology Neil Kent M D [address] [place], [place] [address] (Wo rk) 05/05/2022 Office Visit Optometry Yeny David, OD [address] [facility] [address] [place] [id number] (Wo rk) 05/11/2022 Virtual Visit Pharm Diana Eckert , [facility] [address] [place], [place] [address] (Wo rk) 05/14/2022 Office Visit Cardiology Livan Sharif MD [address] [facility], [facility] [address] [place], [place] [phone] (Wo rk) 05/31/2022 Office Visit Family Practice Valery Veronica PA-C [address] [place] [address] (Wo rk) documented as of this encounter Procedures Procedure Name Priority Date/Time Associated Diagnosis Comme nts TSH WITH FREE T4 Routine 08/16/2020 1:56 PM Palpitations Resul ts for this REFLEX GROUP FITNESS MANAGER procedure are i n the results section. EKG 12-LEAD Routine 08/16/2020 1:49 PM Palpitations Results f or this COMPLETE W/READ - GROUP FITNESS MANAGER procedure are in CLINICS the results section. documented in this encounter Results TSH with free T4 reflex (08/16/2020 1:56 PM GROUP FITNESS MANAGER) athologist Signature TSH 2.22 0.40 - 4.00 08/17/2020 [facility] mU/L 2:[address] [facility] Specimen Anatomical Collection Method Collection Time Receive d Time (Source) Location / / Volume Laterality Blood specimen 08/16/2020 1:56 PM 021 1:57 (specimen) GROUP FITNESS MANAGER PM GROUP FITNESS MANAGER Yolande Mora MD LAB - BLOOD ORDERABLES Performing Organization Address City/State/ZIP Code Phon e Number [facility] [address] [place] [address] EKG 12-lead complete w/read - Clinics (08/16/2020 1:49 PM GROUP FITNESS MANAGER) Narrative This result has an attachment that is no t available. Yolande Mora MD ECG ORDERABLES documented in this encounter Visit Diagnoses Diagnosis Palpitations - Primary documented in this encounter Additional Health Concerns Assessment Noted Time PHQ-9 Depression Total Score: 9 06/25/2020 7:04 AM GROUP FITNESS MANAGER documented as of this encounter Care Teams Processor Inspector Relationship Specialty Start Date End Date Marija Edgar APRN PCP - General Nurse Practitioner 04/30/20 [facility] [employer] [address] [place] [address] Lita Oseguera Personal Advocate & 8/20/20 Liaison (PAL) Chanelle Mccann Assigned OBGYN Provider 05/02/20 05/09/21 [place] [address] [address] [facility] [address] [place] [address] Kyara De La Fuente, RN Specialty Care Neurology 06/04/20 03/05/21 Coordinator Marija Edgar APRN Assigned PCP 06/08/20 [facility] [employer] [address] [place] [address] Mynor Broussard MD Assigned Surgical 06/01/20 11/28/21 [address] [facility] Provider [address] [place] [address] Keisha Dotson, Assigned Neuroscience 06/04/20 Provider [address] [place] [address] Mary Mejia Financial Resource 08/07/2008/11 Worker Stacey Briones, PRODUCTION CONTROL MANAGER Lead Job Foreman Primary Care - CC 08/11/20 12/30/20 Lesley Moody, Community Health Worker 08/11/20 10/01/20 [place] documented as of this encounter
--- OUTSIDE RECORDS SUMMARY | 2022-04-28 01:20 | XMS_ITS | Encounter Summary ---
:2000 Author Organization [facility] Address [address] [place] [address]. [place] [address] Care Team Providers Name Role Phone Lita Oseguera Unavailable Unavailable Marija Edgar APRN, CNP Primary Care Provider [phone] Chanelle Mccann APRN CNM Unavailable + Kyara De La Fuente RN Unavailable Marija Edgar APRN MANAGED CARE PROVIDER Unavailable Mynor Broussard MD Unavailable Keisha Dotson MD Unavailable Mary Mejia Unavailable Unavailable Reason for Referral Care Coordination (Routine) - Closed Specialty Diagnoses / Procedures Referred By Contact Refer red To Contact Diagnoses Other specified counseling [facility] Care Coordination [address] [place], [place] [phone] Referral ID Status Reason Start Date Expiration Date Visits Requ ested Visits Authorized [id number] Closed 08/07/2020 08/07/2021 1 1 PULLING MACHINE TENDER Encounter Details Date Type Department Care Team Description 08/07/2020 Orders Only M [facility] Care Marija Edgar O ther specified Coordination HYDRO TECHNICIAN MANAGED CARE PROVIDER counseling [address] [facility] [address] [place] [address] Social History Tobacco Use Types Packs/Day Years [...] How often do you attend jain or pentecostal services? Never 09/22/2021 Do you [...] with No / Unsure 08/06/2020 2:03 PM PICK PULLING MACHINE TENDER someone who was confirmed or suspected to have Coronavirus / COVID-19? documented as of this encounter Plan of Treatment Upcoming Encounters Date Type Specialty Care Team Description 04/28/2022 Office Visit Family Practice Anthony Doe PA-C [address] [place], [place] [phone] (Wo rk) 05/03/2022 Office Visit Dermatology Neil Kent M D [address] [place], [place] [address] (Wo rk) 05/05/2022 Office Visit Optometry Yeny David, OD [address] [facility] [place] [address] (Wo rk) 05/11/2022 Virtual Visit Pharm D Diana Desir , [facility] [address] [place], [place] [address] (Wo rk) 05/14/2022 Office Visit Cardiology Livan Sharif MD [address], [address] [place], [place] [address] (Wo rk) 05/31/2022 Office Visit Family [facility] Valery Veronica PA-C [address] [place], [place] [address] (Wo rk) Scheduled Referrals Name Type Priority Associated Diagnoses Order S chedule Referral to CC - CHW Referral Routine Other specified coun seling Ordered: 08/07/2020 documented as of this encounter Visit Diagnoses Diagnosis Other specified counseling documented in this encounter Additional Health Concerns Assessment Noted Time PHQ-9 Depression Total Score: 9 06/25/2020 7:04 AM PICK PULLING MACHINE TENDER documented as of this encounter Care Teams Pressure Dispatcher Relationship Specialty Start Date End Date Marija Edgar APRN PCP - General Nurse Practitioner 04/30/20 MANAGED CARE PROVIDER [address] [place], [place] [phone] Lita Oseguera Personal Advocate & 02/28/20 Liaison (PAL) Chanelle Mccann Assigned OBGYN Provider 05/02/20 05/09/21 ARLENE Mooney CNM [address] [address] [facility], [facility] [address] [place], [place] [address] Kyara De La Fuente, VJ Specialty Care Neurology 06/04/20 03/05/21 Coordinator Marija Edgar APRN Assigned PCP 06/08/20 MANAGED CARE PROVIDER [address] [place] [address] Mynor Broussard MD Assigned Surgical 06/01/20 11/28/21 [address] [facility] Provider [address] [place] [address] Keisha Dotson, Assigned Neuroscience 06/04/20 MD Provider [address] [place], [place] [phone] Mary Mejia Financial Resource 08/07/2008/11 Worker documented as of this encounter
--- OUTSIDE RECORDS SUMMARY | 2022-04-28 01:20 | XMS_ITS | Encounter Summary ---
:2000 Author Organization [facility] Address [address] [place] [address] Care Team Providers Name Role Phone Lita Oseguera Unavailable Unavailable Marija Edgar APRN OFFICE AIDE Primary Care Provider Chanelle Mccann APRN CNM Unavailable + Kyara De La Fuente RN Unavailable Marija Edgar APRN OFFICE AIDE Unavailable Mynor Broussard MD Unavailable Keisha Dotson MD Unavailable Mary Mejia Unavailable Unavailable Stacey Briones INSIDE UPHOLSTERER Unavailable Lesley Moody MA Unavailable Encounter Details Date Type Department Care Team Description 08/20/2020 Ancillary Procedure M Physicians SULY Dotson , Seizure disorder (H) Epilepsy Care EEG MD Keisha [address] [place] [address] [address] [address] [place], [place] [phone] [address] (Work) [phone] Social History Tobacco Use Types Packs/Day Years [...] How often do you attend bahai or hindu services? Never 09/22/2021 Do you [...] with No / Unsure 08/20/2020 12:47 PM MATH COACH someone who was confirmed or suspected to have Coronavirus / COVID-19? documented as of this encounter Plan of Treatment Upcoming Encounters Date Type Specialty Care Team Description 04/28/2022 Office Visit Family Practice Anthony Doe PA-C [address] [place] [address] (Wo rk) 05/03/2022 Office Visit Dermatology Neil Kent M D [address] [place] [address] (Wo rk) 05/05/2022 Office Visit Optometry Yeny David, OD [address] [facility] [address] [place] [phone] (Wo rk) 05/11/2022 Virtual Visit Pharm D Diana Desir , [facility] [address] [place], [place] [address] (Wo rk) 05/14/2022 Office Visit Cardiology Livan Sharif MD [address] [place], [place] [phone] (Wo rk) 05/31/2022 Office Visit Family Practice Valery Veronica , [facility] [address] [place], [place] [address] (Wo rk) documented as of this encounter Procedures Procedure Name Priority Date/Time Associated Comments Diagnosis EEG VIDEO 2-12 HRS Routine 08/20/2020 4:00 PM Seizure disorder Results for this CONTINUOUS MATH COACH (H) procedure are i n MONITORING the results section. documented in this encounter Results EEG Video 2-12 hrs Continuous Monitoring (08/20/2020 4:00 PM MATH COACH) Specimen (Source) Anatomical Location Collection Method / Collectio n Time Received Time / Laterality Volume Narrative [facility] - 09/03/2020 2:09 PM MATH COACH EEG Video 2-12 hrs Continuous Monitoring Result VIDEO EEG DATE: 08/20/2020 VIDEO EEG LOG: [id number] VIDEO EEG SOURCE FILE DURATION: 03 hours and 09 minutes PATIENT INFORMATION: Kim Johnson is a 20 year old female who underwent a duty monitoring for evaluation of seiz ures. TECHNICAL SUMMARY: EEG was recorded from 23 scalp electrodes placed according to the 10-20 international sys tem. Additional electrodes were used for referencing, EKG, and to record from other cerebral regions as appropriate. Video was continuously maria rded and was reviewed for clinical correlation. Electrodes were attached an d both video and EEG were monitored and annotated by qualified EEG technologists. Video-EEG was reviewed and report generated by qualifi ed physician. BACKGROUND ACTIVITY: ??During wakefulnes s, the background activity consists of synchronous and symmetric, well-modul ated, 12 hz posterior dominant rhythm. The posterior dominant rhythm at tenuated with eye opening. During drowsiness, the background activity waxe d and waned and there were periods of slowing and attenuation of the parent aide ior alpha rhythm. ??Stage II sleep was recorded in which vertex waves and s ymmetrical sleep spindles and K complexes were identified. ?? ACTIVATION PROCEDURE: Photic stimulation did not induce an abnormal activity on the EEG. INTERICTAL EPILEPTIFORM DISCHARGES: None ICTAL: No clinical events or electrograp hic seizures were recorded. Video was reviewed intermittently by EEG techn ologist and physician for clinical seizures. IMPRESSION OF VIDEO EEG: ??This is a nor mal awake and sleep video electroencephalogram. No electrographic seizures or epileptiform discharges were recorded. Clinical corre lation is advised. Keisha Dotson MD EPILEPSY STAFF Keisha Dotson MD IMG EEG ORDERABLES Performing Organization Address City/State/ZIP Code Phon e Number [facility] documented in this encounter Visit Diagnoses Diagnosis Seizure disorder (H) Unspecified epilepsy without mention of intractable epilepsy documented in this encounter Additional Health Concerns Assessment Noted Time PHQ-9 Depression Total Score: 9 06/25/2020 7:04 AM MATH COACH documented as of this encounter Care Teams Outreach Liaison Relationship Specialty Start Date End Date Marija Edgar APRN PCP - General Nurse Practitioner 04/30/20 OFFICE AIDE [address] [place] [address] Lita Oseguera Personal Advocate & 02/28/20 Liaison (PAL) Chanelle Mccann Assigned OBGYN Provider 05/02/20 05/09/21 [place] [address] [address] [facility] [address] [place], [place] [address] Kyara De La Fuente, VJ Specialty Care Neurology 06/04/20 03/05/21 Coordinator Marija Edgar APRN Assigned PCP 06/08/20 OFFICE AIDE [address] [place], [place] [phone] Mynor Broussard MD Assigned Surgical 06/01/20 11/28/21 [address] [facility] Provider [address] [place] [address] Keisha Dotson, Assigned Neuroscience 06/04/20 MD Provider [address] [place] [address] Mary Mejia Financial Resource 08/07/2008/11 Worker Stacey Briones, INSIDE UPHOLSTERER Lead Ceramics Machine Operator Primary Care - CC 08/11/20 12/30/20 Lesley Moody, Community Health Worker 08/11/20 10/01/20 [place] documented as of this encounter
--- OUTSIDE RECORDS SUMMARY | 2022-04-28 01:20 | XMS_ITS | Encounter Summary ---
:2000 Author Organization [place] Address [address] [place] [address] Care Team Providers Name Role Phone Lita Oseguera Unavailable Unavailable Marija Edgar APRN ONLINE MERCHANDISER Primary Care Provider [phone] Chanelle Mccann APRN CNM Unavailable + Kyara De La Fuente RN Unavailable Marija Edgar APRN ONLINE MERCHANDISER Unavailable Mynor Broussard MD Unavailable Keisha Dotson MD Unavailable Mary Mejia Unavailable Unavailable Stacey BrionesW Unavailable Lesley Moody MA Unavailable Encounter Details Date Type Department Care Team Description 08/16/2020 Travel Social History Tobacco Use Types Packs/Day [...] How often do you attend buddhism or yazidi services? Never 09/22/2021 Do you [...] with No / Unsure 08/16/2020 1:07 PM WELDER AND FITTER someone who was confirmed or suspected to have Coronavirus / COVID-19? documented as of this encounter Plan of Treatment Upcoming Encounters Date Type Specialty Care Team Description 04/28/2022 Office Visit Family Practice Anthony Doe PA-C [address] [place], [place] [phone] (Wo rk) 05/03/2022 Office Visit Dermatology Neil Kent M D [address] [place] [phone] (Wo rk) 05/05/2022 Office Visit Optometry [place], [place] [address] [facility] [address] [place] [phone] (Wo rk) 05/11/2022 Virtual Visit Pharm D Diana Desir , [facility] [address] [place], [place] [phone] (Wo rk) 05/14/2022 Office Visit Cardiology Livan Sharif MD [address], [facility] [address] [place], [place] [address] (Wo rk) 05/31/2022 Office Visit Family Practice Valery Veronica , [facility] [address] [place], [place] [phone] (Wo rk) documented as of this encounter Visit Diagnoses Not on filedocumented in this encounter Additional Health Concerns Assessment Noted Time PHQ-9 Depression Total Score: 9 06/25/2020 7:04 AM WELDER AND FITTER documented as of this encounter Care Teams Sap Business Analyst Relationship Specialty Start Date End Date Marija Edgar APRN PCP - General Nurse Practitioner 04/30/20 ONLINE MERCHANDISER [address] [place] [address] Lita Oseguera Personal Advocate & 02/28/20 Liaison (PAL) Chanelle Mccann Assigned OBGYN Provider 05/02/20 05/09/21 [place] [address] [address] [facility], [facility] [address] [place], [place] [address] Kyara De La Fuente, VJ Specialty Care Neurology 06/04/20 03/05/21 Coordinator Marija Edgar APRN Assigned PCP 06/08/20 ONLINE MERCHANDISER [address] [place], [place] [phone] Mynor Broussard MD Assigned Surgical 06/01/20 11/28/21 [address] [facility] Provider [address] [place] [id number] Keisha Dotson, Assigned Neuroscience 06/04/20 MD Provider [address] [place] [address] Mary Mejia Financial Resource 08/07/2008/11 Worker Stacey Briones, SCHOOL PROGRAM DIRECTOR Lead Hair Cutter Primary Care - CC 08/11/20 12/30/20 Lesley Moody, Community Health Worker 08/11/20 10/01/20 [place] documented as of this encounter
--- OUTSIDE RECORDS SUMMARY | 2022-04-28 01:20 | XMS_ITS | Encounter Summary ---
:2000 Author Organization [place] Address [address] [place] [address] Care Team Providers Name Role Phone Lita Oseguera Unavailable Unavailable Marija Edgar APRN AUCTION BLOCK CLERK Primary Care Provider [phone] Chanelle Mccann APRN CNM Unavailable + Kyara De La Fuente RN Unavailable Marija Edgar APRN AUCTION BLOCK CLERK Unavailable Mynor Broussard MD Unavailable Keisha Dotson MD Unavailable Mary Mejia Unavailable Unavailable Stacey Briones WEAVING INSPECTOR Unavailable Lesley Moody MA Unavailable Reason for Referral Diagnostic Imaging Ultrasound (Routine) - Closed Specialty Diagnoses / Procedures Referred By Contact Refer red To Contact Diagnoses related condition, antepartum Saurabh Nunez MD Procedures MFM US Comprehensive Single [facility] [address] [facility] 200 [place] [address] Referral ID Status Reason Start Date Expiration Date Visits Requ ested Visits Authorized [id number] Closed 08/13/2020 08/13/2021 1 1 SALES TECHNICAL CONSULTANT (Routine) - Closed Specialty Diagnoses / Procedures Referred By Contact Refer red To Contact Diagnoses related condition, antepartum Saurabh Nunez MD [facility] [address] [facility] [address] [place] [address] Referral ID Status Reason Start Date Expiration Date Visits Requ ested Visits Authorized [id number] Closed 08/13/2020 08/13/2021 1 1 SALES TECHNICAL CONSULTANT Encounter Details Date Type Department Care Team Description 08/13/2020 Transcribe Orders [facility] Saurabh Nunez Preg love related Maternal MD Pj condition, Medicine Center OBGYN antepartum ( Primary [facility] Dx) [address] [facility] [address] [facility] [address] [place] [address] [place] [phone] Social History Tobacco Use Types Packs/Day Years [...] How often do you attend cheondoism or jain services? Never 09/22/2021 Do you belong to [...] with No / Unsure 08/12/2020 2:09 PM PRE SALES TECHNICAL CONSULTANT someone who was confirmed or suspected to have Coronavirus / COVID-19? documented as of this encounter Plan of Treatment Upcoming Encounters Date Type Specialty Care Team Description 04/28/2022 Office Visit Family Practice Anthony Doe PA-C [address] [place], [place] [phone] (Wo rk) 05/03/2022 Office Visit Dermatology Neil Kent M D 500 [place], [place] [address] (Wo rk) 05/05/2022 Office Visit Optometry Yeny David, OD [address] [facility] [address] [place] [phone] (Wo rk) 05/11/2022 Virtual Visit Pharm D Diana Desir , [facility] [address] [place], [place] [address] (Wo rk) 05/14/2022 Office Visit Cardiology Livan Sharif MD [address] [place], [place] [address] (Wo rk) 05/31/2022 Office Visit Family Practice Valery Veronica PA-C [address] [place], [place] [address] (Wo rk) Scheduled Referrals Name Type Priority Associated Diagnoses Order S margy [facility] Referral Routine related Order ed: 08/13/2020 REFERRAL- condition, antepartum documented as of this encounter Results M US Comprehensive Single (09/09/2020 10:57 AM PRE SALES TECHNICAL CONSULTANT) Anatomical Region Laterality Modality Ultrasound Specimen (Source) Anatomical Collection Method Collection Time Re ceived Time Location / / Volume Laterality 09/09/2020 10:10 AM PRE SALES TECHNICAL CONSULTANT Impressions 09/09/2020 11:13 AM PRE SALES TECHNICAL CONSULTANT IMPRESSION 1) De La Rosa intrauterine at [...] long and closed. Narrative 09/09/2020 11:13 AM PRE SALES TECHNICAL CONSULTANT Comprehensive Pat. Name: KIM CLARK Study Date: 08/2020 10:10am Pat. NO: [id number] Referring ??: SAURABH NUNEZ Site: [facility] Technical Marketing Engineer: Natasha Lynn DADA MS : 2000 Age: 20 INDICATION Seizure [...] 0 lb 10 ? oz EFW by ?Hadlock ([id number]) Head / Face / Neck Biometry: Grievance Manager ? 7.6 ? mm CM ?4.8 ? [...] cava. Inferior vena cava. 3-vessel ? view. 4-pqkivg-sdupnmn view. Cardiac position. Cardiac size. Cardiac rhythm. [...] Pat. Name:Khoa CLARK Date:2020 10:10am Pat. NO: [id number] MD:SAURABH GALAN [facility]Nat[facility] Lynn RDMS :2000Age:20 INDICATION Seizure disorder. METHOD [...] 0 lb 10 oz EFW by Hadlock ([id number]) Head / Face / Neck Biometry: Grievance Manager 7.6 mm CM 4.8 mm Nasal bone [...] vena cava. Inferior vena cava. 3-vessel view. 9-wvzpnb-bqisvvw view. Cardiac po sition. Cardiac size. Cardiac [...] long and closed. Saurabh Nunez MD IMG MF US ORDERABLES documented in this encounter Visit Diagnoses Diagnosis related condition, antepartum - Primary related condition, antepartum documented in this encounter Additional Health Concerns Assessment Noted Time PHQ-9 Depression Total Score: 9 06/25/2020 7:04 AM PRE SALES TECHNICAL CONSULTANT documented as of this encounter Care Teams Air Purifier Servicer Relationship Specialty Start Date End Date Marija Edgar APRN PCP - General Nurse Practitioner 04/30/20 AUCTION BLOCK CLERK [address] [place], [place] [phone] Lita Oseguera Personal Advocate & 02/28/20 Liaison (PAL) Chanelle Mccann Assigned OBGYN Provider 05/02/20 05/09/21 [place] [address] [address] 200 [place], [place] [address] Kyara De La Fuente, VJ Specialty Care Neurology 06/04/20 03/05/21 Coordinator Marija Edgar APRN Assigned PCP 06/08/20 AUCTION BLOCK CLERK [address] [place], [place] [phone] Mynor Broussard MD Assigned Surgical 06/01/20 11/28/21 [address] [facility] Provider 500 [place] [address] Keisha Dotson, Assigned Neuroscience 06/04/20 MD Provider [address] [place] [address] Mary Mejia Financial Resource 08/07/2008/11 Worker Stacey Briones, WEAVING INSPECTOR Lead Amusement Machine Mechanic Primary Care - CC 08/11/20 12/30/20 Lesley Moody, Community Health Worker 08/11/20 10/01/20 [place] documented as of this encounter
--- OUTSIDE RECORDS SUMMARY | 2022-04-28 01:20 | XMS_ITS | Encounter Summary ---
:2000 Author Organization [place] Address [address] [place] [address] Care Team Providers Name Role Phone Lita Oseguera Unavailable Unavailable Marija Edgar APRN MOBILE HOME INSTALLER Primary Care Provider [phone] Chanelle Mccann APRN CNM Unavailable + Kyara De L aFuente RN Unavailable Marija Edgar APRN MOBILE HOME INSTALLER Unavailable Mynor Broussard MD Unavailable Keisha Dotson MD Unavailable Mary Mejia Unavailable Unavailable Stacey BrionesW Unavailable Lesley Moody MA Unavailable Encounter Details Date Type Department Care Team Description 08/20/2020 Travel Social History Tobacco Use Types Packs/Day [...] How often do you attend taoism or moravian services? Never 09/22/2021 Do you [...] with No / Unsure 08/20/2020 12:47 PM DIRECTOR OF PEOPLE someone who was confirmed or suspected to have Coronavirus / COVID-19? documented as of this encounter Plan of Treatment Upcoming Encounters Date Type Specialty Care Team Description 04/28/2022 Office Visit Family Practice Anthony Doe PA-C [address] [place], [place] [phone] (Wo rk) 05/03/2022 Office Visit Dermatology Neil Kent M D [address] [place] [phone] (Wo rk) 05/05/2022 Office Visit Optometry Yeny David, OD [address] [facility] [address] [place] [phone] (Wo rk) 05/11/2022 Virtual Visit Pharm D Diana Desir , [facility] [address] [place], [place] [address] (Wo rk) 05/14/2022 Office Visit Cardiology Livan Sharif MD [address], [facility] [address] [place], [place] [address] (Wo rk) 05/31/2022 Office Visit Family Practice Valery Veronica , PAUcheC [address] [place], [place] [address] (Wo rk) documented as of this encounter Visit Diagnoses Not on filedocumented in this encounter Additional Health Concerns Assessment Noted Time PHQ-9 Depression Total Score: 9 06/25/2020 7:04 AM DIRECTOR OF PEOPLE documented as of this encounter Care Teams Liquid Waste Treatment Plant Operator Relationship Specialty Start Date End Date Marija Edgar APRN PCP - General Nurse Practitioner 04/30/20 MOBILE HOME INSTALLER [address] [place] [address] Lita Oseguera Personal Advocate & 02/28/20 Liaison (PAL) Chanelle Mccann Assigned OBGYN Provider 05/02/20 05/09/21 [place] [address] [address] [facility] 200 [place], [place] [address] Kyara De La Fuente, VJ Specialty Care Neurology 06/04/20 03/05/21 Coordinator Marija Edgar APRN Assigned PCP 06/08/20 MOBILE HOME INSTALLER [address] [place], [place] [phone] Mynor Broussard MD Assigned Surgical 06/01/20 11/28/21 [address] [facility] Provider 500 [place] [address] Keisha Dotson, Assigned Neuroscience 06/04/20 MD Provider [address] [place] [address] Mary Mejia Financial Resource 08/07/2008/11 Worker Stacey Briones, BAND SINGER Lead Resident Care Associate Primary Care - CC 08/11/20 12/30/20 Lesley Moody, Community Health Worker 08/11/20 10/01/20 [place] documented as of this encounter
--- OUTSIDE RECORDS SUMMARY | 2022-04-28 01:20 | XMS_ITS | Encounter Summary ---
:2000 Author Organization [place] Address [address] [facility] [place] [address] Care Team Providers Name Role Phone Lita Oseguera Unavailable Unavailable Marija Edgar APRN PRINCIPAL CLERK TYPIST Primary Care Provider [phone] Chanelle Mccann APRN CNM Unavailable + Kyara De La Fuente RN Unavailable Marija Edgar APRN PRINCIPAL CLERK TYPIST Unavailable Mynor Broussard MD Unavailable Keisha Dotson MD Unavailable Mary Mejia Unavailable Unavailable Stacey Briones THERMOMETER MAKER Unavailable Lesley Moody MA Unavailable Encounter Details Date Type Department Care Team Description 08/13/[address] [facility] Scan, MATERNAL Health Info Mgmt Non-Provider MEDICINE CE NTER [facility] [address] [place] [phone] Social History Tobacco Use Types Packs/Day [...] How often do you attend protestant or catholic services? Never 09/22/2021 Do you [...] with No / Unsure 08/12/2020 2:09 PM NEON LIGHT INSTALLER someone who was confirmed or suspected to have Coronavirus / COVID-19? documented as of this encounter Plan of Treatment Upcoming Encounters Date Type Specialty Care Team Description 04/28/2022 Office Visit Family Practice Anthony Doe PA-C [address] [place] [address] (Wo aldo) 05/03/2022 Office Visit Dermatology Neil Kent M D [address] [place], [place] [address] ([place]erson carlson) 05/05/2022 Office Visit Optometry Yeny David, OD [address] [facility] [address] [place], [place] [phone] (Wo rk) 05/11/2022 Virtual Visit Pharm Diana Eckert , [facility] [address] [place], [place] [address] (Wo rk) 05/14/2022 Office Visit Cardiology Livan Sharif MD [address] [facility] [address] [place], [place] [address] (Wo rk) 05/31/2022 Office Visit Family Practice Valery Veronica , PAUcheC [address] [place], [place] [address] (Wo rk) documented as of this encounter Visit Diagnoses Not on filedocumented in this encounter Additional Health Concerns Assessment Noted Time PHQ-9 Depression Total Score: 9 06/25/2020 7:04 AM NEON LIGHT INSTALLER documented as of this encounter Care Teams Heater Helper Forge Relationship Specialty Start Date End Date Marija Edgar APRN PCP - General Nurse Practitioner 04/30/20 PRINCIPAL CLERK TYPIST [address] [place], [place] [phone] Lita Oseguera Personal Advocate & 02/28/20 Liaison (PAL) Chanelle Mccann Assigned OBGYN Provider 05/02/20 05/09/21 [place] [address] [place], [address] [place], [place] [phone] Kyara De La Fuente, VJ Specialty Care Neurology 06/04/20 03/05/21 Coordinator Marija Edgar APRN Assigned PCP 06/08/20 PRINCIPAL CLERK TYPIST [address] [place], [place] [phone] Mynor Broussard MD Assigned Surgical 06/01/20 11/28/21 [address] Provider 500 [place], [place] [address] Keisha Dotson, Assigned Neuroscience 06/04/20 MD Provider [address]09 [place], [place] [address] Mary Mejia Financial Resource 08/07/2008/11 Worker Stacey Briones, THERMOMETER MAKER Lead Call Center Assistant Primary Care - CC 08/11/20 12/30/20 Lesley Moody, Community Health Worker 08/11/20 10/01/20 [place] documented as of this encounter
--- OUTSIDE RECORDS SUMMARY | 2022-04-28 01:21 | XMS_ITS | Encounter Summary ---
:2000 Author Organization [facility] Address [address] [place] [address]. [place] [address] Care Team Providers Name Role Phone Lita Oseguera Unavailable Unavailable Marija Edgar APRN, CNP Primary Care Provider [phone] Chanelle Mccann APRN CNM Unavailable + Kyara De La Fuente RN Unavailable Marija Edgar APRN, CNP Unavailable Mynor Broussard MD Unavailable Keisha Dotson MD Unavailable Reason for Referral [facility] (Routine) - Closed Specialty Diagnoses / Procedures Referred By Contact Refer red To Contact Diagnoses Lumbar pain Less than 8 weeks gestation of Marija Edgar APRN CNP [address] [place], [place] [address] Referral ID Status Reason Start Date Expiration Date Visits Requ ested Visits Authorized [id number] Closed 06/24/2020 06/24/2021 1 1 INUOUS IMPROVEMENT COORDINATOR Reason for Visit Reason Comments Back Pain Physical Encounter Details Date Type Department Care Team Description 06/24/2020 Office Visit [facility] Marija Edgar Routin e general medical examination at a health care facility (Primary Dx); [facility] [place] [facility] BURNER APARTMENT PROPERTY MANAGER Seizure (H); [address] Lumbar pain; [place], [place] Anxiety ; [phone] Less than 8 weeks gestation of ; [phone] Mild intermitte nt asthma, unspecified whether complicated (Work) Social History Tobacco Use Types Packs/Day [...] How often do you attend jew or scientologist services? Never 09/22/2021 Do you belong to [...] or slept in a half-way (including now)? Sex Assigned at Date Recorded Female 03/02/2021 5:45 PM CDT COVID-19 Exposure Response Date Recorded In the last month, have you been in contact with No / Unsure 06/24/2020 3:01 PM CONTINUOUS IMPROVEMENT COORDINATOR someone who was confirmed or suspected to have Coronavirus / COVID-19? documented as of this encounter Last Filed Vital Signs Vital Sign Reading Time Taken Comments Blood Pressure 120/69 06/24/2020 3:16 PM CONTINUOUS IMPROVEMENT COORDINATOR Pulse 70 06/24/2020 3:16 PM CONTINUOUS IMPROVEMENT COORDINATOR Temperature 36.8 ??C (98.2 ??F) 06/24/2020 3:16 PM CONTINUOUS IMPROVEMENT COORDINATOR Respiratory Rate 16 06/24/2020 3:16 PM CONTINUOUS IMPROVEMENT COORDINATOR Oxygen Saturation 97% 06/24/2020 3:16 PM CONTINUOUS IMPROVEMENT COORDINATOR Inhaled Oxygen Concentration - - Weight 88.3 kg (194 lb 9.6 oz) 06/24/2020 3:16 PM CONTINUOUS IMPROVEMENT COORDINATOR Height 167.6 cm (5' 6) 06/24/2020 3:16 PM CONTINUOUS IMPROVEMENT COORDINATOR Body Mass Index 31.41 06/24/2020 3:16 PM CONTINUOUS IMPROVEMENT COORDINATOR documented in this encounter Patient Instructions Patient InstructionsYovana Collins - 06/24/2020 3:30 PM CST Preventive Health Recommendations Female Ages 18 to 20 Yearly exam: ??? See your health care provider every year in order to o Review health changes. o Discuss preventive care. o Review your medicines if your doctor has prescribed any. ??? You should be tested each year for STDs (sexually transmitted diseases). ??? After age 20, talk to your provider about how often you should have cholesterol testing. ??? If you are at risk for [...] control your weight and prevent disease. ??? No smoking. ??? Wear sunscreen to prevent skin cancer. ??? See your dentist every six months for an exam and cleaning. INUOUS IMPROVEMENT COORDINATOR documented in this encounter Progress Notes Lita Oseguera - 06/24/2020 3:30 PM CST Pre-Visit Planning Next 5 appointments (look out 90 days) Jul 16, 2020 9:45 AM Telephone Visit with Alexis Vazquez PsyD [facility] ([facility]) [id number] [place] [phone] Jul 16, 2020 10:15 AM Telephone Visit with Pricila Amaya DO [facility] ([facility]) [address] [place] [phone] Appointment Notes for this encounter: rescheduled wanted to apologize for missing appt on 05/23--establish care Questionnaires Reviewed/Assigned No additional questionnaires are needed Patient preferred phone number: [phone] Unable to reach. Left voicemail. Advised patient to call clinic back at [phone]. INUOUS IMPROVEMENT COORDINATOR Marija Edgar APRN CNP - 06/24/2020 3:30 PM CST SUBJECTIVE: CC: Kim Johnson is an 20 year old woman who presents for preventive health visit. Patient has been advised of split billing requirements and indicates understanding: Yes Back Pain Healthy Habits: Taking medications regularly: 0 PHQ-2 Total Score: 3 History of Present Illness Back Pain: She presents for follow up of back pain. Patient's back pain is a new problem. Original cause of back pain: other First noticed back pain: in the last week Patient feels back pain: comes and goesLocation of back pain: Right lower back, left lower back, right middle of back, left middle of back, right side of waist and left side of waist Description of back pain: dull ache and other Back pain spreads: nowhere Since patient first noticed back pain, pain is: always present, but gets better and worse Does back pain interfere with her job: Not applicable On a scale of 1-10 (10 being the worst), patient describes pain as: 8 What makes back pain worse: bending, coughing, certain positions, lying down, sitting, standing and twisting Acetaminophen: helpful Activity or exercise: not tried Chiropractor: Not tried Cold: not tried Heat: not tried Massage: not tried Muscle relaxants: not tried NSAIDS: not tried Opioids: not tried Physical Therapy: not tried Rest: not helpful Steroid Injection: not tried Stretching: not helpful Surgery: not tried TENS unit: not tried Topical pain relievers: not tried Other healthcare providers patient is seeing for back pain: None CKD: She is not using over the counter pain medicine. Mental Health Follow-up: Patient presents to follow-up on Anxiety. Patient's anxiety since last visit has been: No change The patient is not having other symptoms associated with anxiety. Any significant life events: other Patient is feeling anxious or having panic attacks. Patient has no concerns about alcohol or drug use. Social History Tobacco Use Smoking status: Former Smoker Packs/day: 1.00 Types: Other Quit date: 12/07/2019 Years since quittin.5 Smokeless tobacco: Never Used Alcohol use: Not Currently Drug use: No Today's PHQ-9 PHQ-9 Total Score: (P) 9 PHQ-9 Q9 Thoughts of better off /self-harm past 2 weeks : (P) Not at all Thoughts of suicide or self harm: Self-harm Plan: Self-harm Action: Safety concerns for self or others: She eats 2-3 servings of fruits and vegetables daily.She consumes 0 sweetened beverage(s) daily.She exercises with enough effort to increase her heart rate 10 to 19 minutes per day. She exercises with enough effort to increase her heart rate 3 or less days per week. She is taking medications regularly. KALYN-7 SCORE 05/19/2020 06/04/2020 06/24/2020 Total Score 16 (severe anxiety) - 7 (mild anxiety) Total Score 16 13 7 Today's PHQ-2 Score: PHQ-2 (??1999 Pfizer) 06/24/2020 Q1: Little interest or pleasure in doing things 3 Q2: Feeling down, depressed or hopeless 0 PHQ-2 Score 3 Q1: Little interest or pleasure in doing things Nearly every day Q2: Feeling down, depressed or hopeless Not at all PHQ-2 Score Incomplete Abuse: Current or Past (Physical, Sexual or Emotional) - No Do you feel safe in your environment? Yes Social History Tobacco Use ??? Smoking status: Former Smoker Packs/day: 1.00 Types: Other Quit date: 12/07/2019 Years since quittin.5 ??? Smokeless tobacco: Never Used Substance Use Topics ??? Alcohol use: Not Currently Alcohol Use 05/19/2020 Prescreen: >3 drinks/day or >7 drinks/week? Not Applicable Prescreen: >3 drinks/day or >7 drinks/week? - Reviewed orders with patient. Reviewed health maintenance and updated orders accordingly - Yes Lab work is in process Labs reviewed in [facility] Mammogram not appropriate for this patient based on age. Pertinent mammograms are reviewed under the imaging tab. History of abnormal Pap smear: NO - under age 21, PAP not appropriate for age Reviewed and updated as needed this visit [...] Gastroesophageal reflux disease ??? Seizure (H) 05/02/2019 Past Surgical History: Procedure Laterality Date ??? GENITOURINARY SURGERY Review of Systems Musculoskeletal: Positive for back pain. OBJECTIVE: BP 120/69 Pulse 70 Temp 98.2 ??F (36.8 ??C) (Oral) Resp 16 Ht 1.676 m (5' 6) Wt 88.3 kg (194 lb 9.6 oz) LMP 05/05/2020 SpO2 97% BMI 31.41 kg/m?? Physical Exam GENERAL: healthy, alert and no distress EYES: Eyes grossly normal to inspection, PERRL and conjunctivae and sclerae normal HENT: ear canals and TM's normal, nose and mouth without ulcers or lesions NECK: no adenopathy, no asymmetry, masses, or scars and thyroid normal to palpation RESP: lungs clear to auscultation - no rales, rhonchi or wheezes BREAST: deferred CV: regular rate and rhythm, normal S1 S2, no S3 or S4, no murmur, click or rub, no peripheral edemaand peripheral pulses strong ABDOMEN: soft, nontender, no hepatosplenomegaly, no masses and bowel sounds normal MS: easily reproducible pain through bilateral lubar. No midline pain. SKIN: no suspicious lesions or rashes NEURO: Normal strength and tone, mentation intact and speech normal PSYCH: mentation appears normal, affect normal/bright Diagnostic Test Results: Labs reviewed in [facility] ASSESSMENT/PLAN: Kim was seen today for back pain and physical. Diagnoses and all orders for this visit: Routine general medical examination at a health care facility As below. Seizure (H) Controlled. Continue with Neurology. Lumbar pain Less than 8 weeks gestation of - *UA reflex to Microscopic and Culture ([facility] (except [place] and [place]) - [facility] PT, HAND, AND CHIROPRACTIC REFERRAL; Future Exam consistent with MSK pain. Will plan for UA given history of renal stones and current early . Recommended Physical Therapy, no medications. No red flags on exam. Anxiety Improving. Continue current sertraline. Mild intermittent asthma, uncomplicated. Controlled. Other orders - REVIEW OF HEALTH MAINTENANCE PROTOCOL ORDERS Patient has been advised of split billing requirements and indicates understanding: Yes COUNSELING: Reviewed preventive health counseling, as reflected in patient instructions Estimated body mass index is 31.41 kg/m?? as calculated from the following: Height as of this encounter: 1.676 m (5' 6). Weight as of this encounter: 88.3 kg (194 lb 9.6 oz). She reports that she quit smoking about 6 months ago. Her smoking use included other. She smoked 1.00 pack per day. She has never used smokeless tobacco. Counseling Resources: ATP IV Guidelines Pooled Cohorts Equation Calculator Breast Cancer Risk Calculator BRCA-Related Cancer Risk Assessment: FHS-7 Tool FRAX Risk Assessment ICSI Preventive Guidelines Dietary Guidelines for Americans, 2009 USDA's MyPlate ASA Prophylaxis Lung CA Screening Marija Edgar APRN CNP [facility] Answers for HPI/ROS submitted by the patient on 06/24/2020 Chronic problems general questions HPI Form If you checked off any problems, how difficult have these problems made it for you to do your work, take care of things at home, or get along with other people?: Somewhat difficult PHQ9 TOTAL SCORE: 9 KALYN 7 TOTAL SCORE: 7 INUOUS IMPROVEMENT COORDINATOR documented in this encounter Plan of Treatment Upcoming Encounters Date Type Specialty Care Team Description 04/28/2022 Office Visit Family Practice Anthony Doe PA-C [address] [place], [place] [phone] (Wo rk) 05/03/2022 Office Visit Dermatology Neil Kent M D [address] [place], [place] [address] (Wo rk) 05/05/2022 Office Visit Optometry Yeny David, OD [address] [facility] [address] [place], [place] [id number] (Wo rk) 05/11/2022 Virtual Visit Pharm D Diana Desir , [facility] [address] [place], [place] [address] (Wo rk) 05/14/2022 Office Visit Cardiology Livan Sharif MD [address] [place], [place] [address] (Wo rk) 05/31/2022 Office Visit Family Practice Valery Veronica , [address] [address] [place], [place] [address] (Wo rk) Scheduled Referrals Name Type Priority Associated Diagnoses Order S chedule [facility] PT, HAND, AND Referral Routine Lumbar pain Expected: CHIROPRACTIC REFERRAL Less than 8 weeks 1 08/25/2019, Expires: gestation of 06/24 documented as of this encounter Procedures Procedure Name Priority Date/Time Associated Comments Diagnosis UA MACROSCOPIC WITH Routine 06/24/2020 4:07 PM Lumbar pain Re sults for this REFLEX TO MICROSCOPIC CONTINUOUS IMPROVEMENT COORDINATOR proced ure are in AND CULTURE the results section. ASTHMA ACTION PLAN Routine 06/24/2020 3:56 PM CONTINUOUS IMPROVEMENT COORDINATOR documented in this encounter Results *UA reflex to Microscopic and Culture ([facility] (except [place] and [place]) (06/24/2020 4:07 PM CONTINUOUS IMPROVEMENT COORDINATOR) [facility] Method Time Signature Color Urine Yellow 06/24/2020 [facility] 4:18 PM CONTINUOUS IMPROVEMENT COORDINATOR [facility] Appearance Urine Clear 06/24/2020 [facility] 4:18 PM CONTINUOUS IMPROVEMENT COORDINATOR [facility] Glucose Urine Negative NEG^Negat 06/24/2020 [facility] mg/dL 4:18 PM CONTINUOUS IMPROVEMENT COORDINATOR [facility] Bilirubin Urine Negative NEG^Negat 06/24/2020 [facility] 4:18 PM CONTINUOUS IMPROVEMENT COORDINATOR [facility] Ketones Urine Negative NEG^Negat 06/24/2020 [facility] mg/dL 4:18 PM CONTINUOUS IMPROVEMENT COORDINATOR [facility] Specific Homer 1.025 1.003 - 06/24/2020 [facility] Urine 1.035 4:18 PM CONTINUOUS IMPROVEMENT COORDINATOR [facility] Blood Urine Negative NEG^Negat 06/24/2020 [facility] 4:18 PM CONTINUOUS IMPROVEMENT COORDINATOR [facility] pH Urine 6.0 5.0 - 7.0 06/24/2020 [facility] pH 4:18 PM CONTINUOUS IMPROVEMENT COORDINATOR [facility] Protein Albumin Negative NEG^Negat 06/24/2020 [facility] Urine shyam mg/dL 4:18 PM CONTINUOUS IMPROVEMENT COORDINATOR [facility] Urobilinogen 0.2 0.2 - 1.0 06/24/2020 [facility] Urine EU/dL 4:18 PM CONTINUOUS IMPROVEMENT COORDINATOR [facility] Nitrite Urine Negative NEG^Negat 06/24/2020 [facility] shyam 4:18 PM CONTINUOUS IMPROVEMENT COORDINATOR [facility] Leukocyte Negative NEG^Negat 06/24/2020 [facility] Esterase Urine shyam 4:18 PM CONTINUOUS IMPROVEMENT COORDINATOR [facility] Source Midstream 06/24/2020 [facility] Urine 4:08 PM CONTINUOUS IMPROVEMENT COORDINATOR [facility] Specimen (Source) Anatomical Collection Method Collection Time Re ceived Time Location / / Volume Laterality Examination of 06/24/2020 4:07 06/24/2020 4:08 midstream urine PM CONTINUOUS IMPROVEMENT COORDINATOR PM CONTINUOUS IMPROVEMENT COORDINATOR specimen (procedure) Marija Edgar APRN APARTMENT PROPERTY MANAGER LAB - URINE ORDERABLES Performing Organization Address City/State/ZIP Code Phon e Number [facility] [address] [place] [address] documented in this encounter Visit Diagnoses Diagnosis Routine general medical examination at a health care facility - Primary Seizure (H) Other convulsions Lumbar pain Lumbago Anxiety Anxiety state, unspecified Less than 8 weeks gestation of state, incidental Mild intermittent asthma, unspecified wh ether complicated documented in this encounter Additional Health Concerns Assessment Noted Time PHQ-9 Depression Total Score: 9 06/25/2020 7:04 AM CONTINUOUS IMPROVEMENT COORDINATOR documented as of this encounter Care Teams Food Stylist Relationship Specialty Start Date End Date Marija Edgar APRN PCP - General Nurse Practitioner 04/30/20 APARTMENT PROPERTY MANAGER [address] [place], [place] [phone] Lita Oseguera Personal Advocate & 02/28/20 Liaison (PAL) Chanelle Mccann Assigned OBGYN Provider 05/02/20 05/09/21 [place] [address] [address] [facility] [address] [place], [place] [address] Kyara De La Fuente, VJ Specialty Care Neurology 06/04/20 03/05/21 Coordinator Marija Edgar APRN Assigned PCP 06/08/20 APARTMENT PROPERTY MANAGER [address] [place], [place] [phone] Mynor Broussard MD Assigned Surgical 06/01/20 11/28/21 [address] [facility] Provider [address] [place], [place] [phone] Mauri, Assigned Neuroscience 06/04/20 MD Keisha Provider [address] [place], [place] [phone] documented as of this encounter
--- OUTSIDE RECORDS SUMMARY | 2022-04-28 01:21 | XMS_ITS | Encounter Summary ---
:2000 Author Organization [facility] Address [address] [place] [address] Care Team Providers Name Role Phone OumarAlee neriyn Unavailable Unavailable Rakesh Cid PA-C Unavailable [phone] Marija Edgar APRN ACCOUNTANT BUDGET Primary Care Provider [phone] Chanelle Mccann OFFBEARER CNM Unavailable + Lesley Moody MA Unavailable Kyara De La Fuente RN Unavailable Mynor Broussard MD Unavailable Keisha Dotson MD Unavailable Encounter Details Date Type Department Care Team Description 06/04/2020 Travel Social History Tobacco Use Types Packs/Day [...] How often do you attend quaker or adventist services? Never 09/22/2021 Do you [...] or slept in a [facility] (including now)? Sex Assigned at Date Recorded Female 03/02/2021 5:45 PM CDT COVID-19 Exposure Response Date Recorded In the last month, have you been in contact with No / Unsure 06/04/2020 10:30 AM ARMED GUARD someone who was confirmed or suspected to have Coronavirus / COVID-19? documented as of this encounter Plan of Treatment Upcoming Encounters Date Type Specialty Care Team Description 04/28/2022 Office Visit Family Practice Anthony Doe PA-C [address] [place], [place] [phone] (Wo aldo) 05/03/2022 Office Visit Dermatology Neil Kent M D [address] [place], [place] [phone] (Wo rk) 05/05/2022 Office Visit Optometry Yeny David, OD [address] [facility] [place] [phone] (Wo aldo) 05/11/2022 Virtual Visit Pharm Diana Eckert , [facility] [address] [place], [place] [address] ([place] [facility]) 05/14/2022 Office Visit Cardiology Livan Sharif MD [address] [place] [address] (Wo rk) 05/31/2022 Office Visit Family Practice Valery Veronica PA-C [address] [place], [place] [address] (Wo rk) documented as of this encounter Visit Diagnoses Not on filedocumented in this encounter Additional Health Concerns Assessment Noted Time PHQ-9 Depression Total Score: 9 06/04/2020 10:35 AM CS T documented as of this encounter Care Teams Special Procedure Technologist Relationship Specialty Start Date End Date Marija Edgar APRN PCP - General Nurse Practitioner 04/30/20 ACCOUNTANT [employer]UDGET [address] [place] [address] Lita Oseguera Personal Advocate & 02/28/20 Liaison (PAL) Rakesh Cid Assigned PCP 03/02/20 06/07/20 [place] [address] [place], [place] [phone] Chanelle Mccann Assigned OBGYN Provider 05/02/20 05/09/21 [place] [address] [address] [facility] [address] [place] [address] Lesley Moody, Community Health Worker 05/30/20 06/08/20 MA Kyara De La Fuente, VJ Specialty Care Neurology 06/04/20 03/05/21 Coordinator Mynor Broussard MD Assigned Surgical 06/01/20 11/28/21 [address] [facility] Provider [address] [place] [address] Melody Dotson Neuroscience 06/04/20 MD Keisha Provider [address] [place], [place] [address] documented as of this encounter
--- OUTSIDE RECORDS SUMMARY | 2022-04-28 01:21 | XMS_ITS | Encounter Summary ---
:2000 Author Organization [facility] Address [address] [place] [address] Care Team Providers Name Role Phone Lita Oseguera Unavailable Unavailable Marija Edgar APRN CHIEF MERCHANDISING OFFICER Primary Care Provider [phone] Chanelle Mccann APRN CN Unavailable + Kyara De La Fuente RN Unavailable Marija Edgar APRN CHIEF MERCHANDISING OFFICER Unavailable Mynor Broussard MD Unavailable Keisha Dotson MD Unavailable Reason for Visit Reason Onset Date Comments Warm Hand Off 06/19/2020 Encounter Details Date Type Department Care Team Description 06/19/2020 Telephone [facility] Kyara De La Fuente RN Warm Hand Off [address], ([address]) [address] [place], [place] [phone] Social History Tobacco Use Types Packs/Day Years [...] How often do you attend pentecostal or zoroastrian services? Never 09/22/2021 Do you belong to any clubs or organizations such as No 09/22/2021 pentecostal groups, unions, [employer] or athletic groups, or school groups? How [...] with No / Unsure 06/04/2020 10:30 AM BOILER TENDERS SUPERVISOR someone who was confirmed or suspected to have Coronavirus / COVID-19? documented as of this encounter Miscellaneous Notes Telephone Encounter - Kyara De La Fuente RN - 06/19/2020 2:13 PM CST Warm transfer received from the front services agent regarding concern for an allergic reaction to anti-seizure medications. Patient recounts the events as follows: Dr. Murray started Kim on keppra two weeks ago. She weaned off of zonisamide and on to keppra due to her new and concern for congenital malformations.She noticed she was super itchy after taking her dose (5 minutes later) of keppra yesterday morning.She also had heart burn. Then an hour or two after taking the dose her throat started to feel swollen, with light difficulty breathing. She describes this as needing to take a deeper breath. It went away on it's own after 30 minutes. it wasn't a huge reaction. No tongue swelling, she did not pass out or have any other noteable symptoms in which caused her concern. She spoke to PCP about this yesterday and today whom reportedly advised that she continue taking keppra but be under the supervision of others to monitor for concerns and to report to ED if difficulty breathing returns. She hasn't taken any keppra since this occurred yesterday morning. She has had 1 definite seizure, possible 2, GTCs in her lifetime; this was a year and a half ago. Her dad and aunt have epilepsy so she was started on AED after her seizure. This was discussed with Dr. Renteria whom advised to take the doses divided further throughout the day for a few days and seek EMS if concerns regarding her breathing. She verbalized understanding. She did state that she didn't increase her keppra to 1.5 BID yet. She stayed on 1 tab BID because she doesn't feel she needs to take it. I advised her to slowly increase as ordered. ER TENDERS SUPERVISOR documented in this encounter Plan of Treatment Upcoming Encounters Date Type Specialty Care Team Description 04/28/2022 Office Visit Family Practice Anthony Doe, [place] [address] [place] [address] (Wo aldo) 05/03/2022 Office Visit Dermatology Neil Kent M D [address] [place], [place] [phone] (Jefferson carlson) 05/05/2022 Office Visit Optometry Yeny David, OD [address] [facility] [place] [phone] (Wo rk) 05/11/2022 Virtual Visit Pharm D Diana Desir , [facility] [address] [place], [place] [address] (Wo aldo) 05/14/2022 Office Visit Cardiology [facility] [address] [facility] [address] [place] [address] (Wo rk) 05/31/2022 Office Visit Family Practice Valery Veronica PA-C [address] [place] [address] (Wo rk) documented as of this encounter Visit Diagnoses Not on filedocumented in this encounter Additional Health Concerns Assessment Noted Time PHQ-9 Depression Total Score: 9 06/04/2020 10:35 AM CS T documented as of this encounter Care Teams Insurance Claims Supervisor Relationship Specialty Start Date End Date Marija Edgar APRN PCP - General Nurse Practitioner 04/30/20 CHIEF MERCHANDISING OFFICER [address] [place], [place] [phone] Lita Oseguera Personal Advocate & 02/28/20 Liaison (PAL) Chanelle Mccann Assigned OBGYN Provider 05/02/20 05/09/21 [place] [address] [address] [facility] [address] [place] [address] Kyara De La Fuente RN Specialty Care Neurology 06/04/20 03/05/21 Coordinator Marija Edgar APRN Assigned PCP 06/08/20 CHIEF MERCHANDISING OFFICER [address] [place], [place] [phone] Mynor Broussard MD Assigned Surgical 06/01/20 11/28/[address] [facility] Provider [address] [place] [address] Melody Dotson Neuroscience 06/04/20 MD Keisha Provider [address] [place] [address] documented as of this encounter
--- OUTSIDE RECORDS SUMMARY | 2022-04-28 01:21 | XMS_ITS | Encounter Summary ---
:2000 Author Organization [facility] Address [address] [place] [address]. [place] [address] Care Team Providers Name Role Phone Lita Oseguera Unavailable Unavailable Rakesh Cid PA-C Unavailable [phone] Marija Edgar APRN LEAD RAMP SERVICE MAN Primary Care Provider [phone] Chanelle Mccann APRN CNM Unavailable + Lesley Moody MA Unavailable Kyara De La Fuente RN Unavailable Mynor Broussard MD Unavailable Keisha Dotson MD Unavailable Reason for Referral CV Testing (Routine) - Closed Specialty Diagnoses / Procedures Referred By Contact Refer red To Contact Diagnoses Palpitations Marija Edgar APRN LEAD RAMP SERVICE MAN Procedures Zio Patch Holter Adult Pediatric Greater than 48 hrs ZZHC EXT ECG > 48HR TO 21 DAY RCRD W/CONECT INTL RCRD ZZC EXT ECG > 48HR TO 21 DAY REVIEW AND INTERPRETATN [address] [place], [place] [address] Referral ID Status Reason Start Date Expiration Date Visits Requ ested Visits Authorized [id number] Closed 06/04/2020 06/04/2021 1 1 LER MECHANIC Mental Health Outpatient (Routine) - Closed Specialty Diagnoses / Procedures Referred By Contact Refer red To Contact Diagnoses Anxiety Marija Edgar APRN LEAD RAMP SERVICE MAN [address] [place], [place] [address] Referral ID Status Reason Start Date Expiration Date Visits Requ ested Visits Authorized [id number] Closed 06/04/2020 06/04/2021 1 1 LER MECHANIC Reason for Visit Reason Comments Depression Anxiety Recheck Medication Encounter Details Date Type Department Care Team Description 06/04/2020 Virtual Visit [facility] Marija Edgar Anxie ty (Primary Dx); [facility] [place] ARLENE GRANADOS Palpitations; [address] [facility] [address] [place] [address] Seizure (H); [place], [place] Less th [place] 8 [place] [id number] [phone] Social History Tobacco Use Types Packs/Day Years [...] How often do you attend latter-day or lutheran services? Never 09/22/2021 Do you [...] slept in a skilled nursing (including now)? Sex Assigned at Date Recorded Female 03/02/2021 5:45 PM CDT COVID-19 Exposure Response Date Recorded In the last month, have you been in contact with No / Unsure 06/04/2020 10:30 AM MUFFLER MECHANIC someone who was confirmed or suspected to have Coronavirus / COVID-19? documented as of this encounter Last Filed Vital Signs Vital Sign Reading Time Taken Comments Blood Pressure - - Pulse - - Temperature - - Respiratory Rate 20 06/04/2020 10:37 AM MUFFLER MECHANIC Oxygen Saturation - - Inhaled Oxygen Concentration - - Weight 86.2 kg (190 lb) 06/04/2020 10:37 AM MUFFLER MECHANIC Height 167.6 cm (5' 6) 06/04/2020 10:37 AM MUFFLER MECHANIC Body Mass Index 30.67 06/04/2020 10:37 AM MUFFLER MECHANIC documented in this encounter Progress Notes Marija Edgar, ARLENE LEAD RAMP SERVICE MAN - 06/04/2020 10:30 AM CST Kim Johnson is a 20 year old female who is being evaluated via a billable video visit. The patient has been notified of following: This video visit will be conducted via a call between you and your physician/provider. We have found that certain health care needs can be provided without the need for an in-person physical exam. This service lets us provide the care you need with a video conversation. If a prescription is necessarywe can send it directly to your pharmacy. If lab work is needed we can place an order for that and you can then stop by our lab to have the test done at a later time. Video visits are billed at different rates depending on your insurance coverage. Please reach out toyour insurance provider with any questions. If during the course of the call the physician/provider feels a video visit is not appropriate, you will not be charged for this service. Patient has given verbal consent for Video visit? Yes How would you like to obtain your AVS? Vickyt If you are dropped from the video visit, the video invite should be resent to: Text to cell phone: [phone] Will anyone else be joining your video visit? No Subjective Kim Johnson is a 20 year old female who presents today via video visit for the following health issues: HPI Depression and Anxiety Follow-Up ?? How are you doing with your depression since your last visit? No change ?? How are you doing with your anxiety since your last visit? Worsened hormones ?? Are you having other symptoms that might be associated with depression or anxiety? Yes: heart palpatations; sweats; nausea ?? Have you had a significant life event? Housing Concerns and OTHER: ?? Do you have any concerns with your use of alcohol or other drugs? No Patient with palpitations multiple times per day and feels this is causing her increased anxiety. She does feel some chest pain with this. This has been worked up in Emergency Department without findings. She has been experiencing palpations for many years. Consult with OB yesterday. Started vitamin. Working with [facility] [place]. Consult Neurology yesterday for antiepileptic medications for . Social History Tobacco Use ??? Smoking status: Former Smoker Packs/day: 1.00 Types: Other Quit date: 12/07/2019 Years since quittin.4 ??? Smokeless tobacco: Never Used Substance Use Topics ??? Alcohol use: Not Currently ??? Drug use: No PHQ 03/27/2020 05/19/2020 06/04/2020 PHQ-9 Total Score 12 6 9 Q9: Thoughts of better off /self-harm past 2 weeks Several days Not at all Not at all KALYN-7 SCORE 03/27/2020 05/19/2020 06/04/2020 Total Score - 16 (severe anxiety) - Total Score 11 16 13 Last PHQ-9 06/04/2020 1. Little interest or pleasure in doing things 0 2. Feeling down, depressed, or hopeless 1 3. Trouble falling or staying asleep, or sleeping too much 3 4. Feeling tired or having little energy 1 5. Poor appetite or overeating 1 6. Feeling bad about yourself 2 7. Trouble concentrating 0 8. Moving slowly or restless 1 Q9: Thoughts of better off /self-harm past 2 weeks 0 PHQ-9 Total Score 9 Difficulty at work, home, or with people Very difficult KALYN-7 06/04/2020 1. Feeling nervous, anxious, or on edge 3 2. Not being able to stop or control worrying 2 3. Worrying too much about different things 2 4. Trouble relaxing 1 5. Being so restless that it is hard to sit still 1 6. Becoming easily annoyed or irritable 2 7. Feeling afraid, as if something awful might happen 2 KALYN-7 Total Score 13 If you checked any problems, how difficult have they made it for you to do your work, take care of things at home, or get along with other people? Very difficult Suicide Assessment Five-step Evaluation and Treatment (SAFE-T) ?? How many servings of fruits and vegetables do you eat daily? 2-3 ?? On average, how many sweetened beverages do you drink each day (Examples: soda, juice, sweet tea,etc. Do NOT count diet or artificially sweetened beverages)? 0 ?? How many days per week do you exercise enough to make your heart beat faster? 3 or less ?? How many minutes a day do you exercise enough to make your heart beat faster? 30 - 60 ?? How many days per week do you miss taking your medication? 0 Video Start Time: 10:46 AM Review of Systems Constitutional, HEENT, cardiovascular, pulmonary, gi and gu systems are negative, except as otherwise noted. Objective Vitals - Patient Reported Pain Score: No Pain (0) Vitals: No vitals were obtained today due to virtual visit. Physical Exam GENERAL: Healthy, alert and no distress EYES: Eyes grossly normal to inspection. No discharge or erythema, or obvious scleral/conjunctival abnormalities. RESP: No audible wheeze, cough, or visible cyanosis. No visible retractions or increased work of breathing. SKIN: Visible skin clear. No significant rash, abnormal pigmentation or lesions. NEURO: Cranial nerves grossly intact. Mentation and speech appropriate for age. PSYCH: Mentation appears normal, affect normal/bright, judgement and insight intact, normal speech and appearance well-groomed. Zio Patch pending. Assessment & Plan Kim was seen today for depression, anxiety and recheck medication. Diagnoses and all orders for this visit: Anxiety - MENTAL HEALTH REFERRAL - Adult; Outpatient Treatment; Individual/Couples/Family/Group Therapy/Health Psychology; [facility]: [facility] ; We will contact you to schedule the ap pointment or please call with any questions Uncontrolled. Feels palpitations are causing increased anxiety. Consider anxiety causing palpitations. Zio Patch pending as below. Discussed and agreed upon counseling. If not better controlled in 4-8 weeks, consider dose increase per OBGYN's discretion. Discussed low level physical activity to help manage anxiety and increase physical endurance. (low level during ) Palpitations - Zio Patch Holter Adult Pediatric Greater than 48 hrs Will plan to rule out malignant palpations. Follow-up pending results. No red flags on history. Seizure (H) Established with new Neurology ([facility] Medication titration currently to start Keppra and stop zonisimide for safety. Continue to follow with Neurology. Less than 8 weeks gestation of Established with [facility] [place]. Return in about 4 weeks (around 07/02/2020) for anxiety/ palpitations. Marija Edgar APRN CNP [facility] Video-Visit Details Type of service: Video Visit Video End Time:11:16 AM Originating Location (pt. Location): Home Distant Location (provider location): [facility] Platform used for Video Visit: Ramón LER MECHANIC documented in this encounter Plan of Treatment Upcoming Encounters Date Type Specialty Care Team Description 04/28/2022 Office Visit Family Practice Anthony Doe, [place] [address] [place], [place] [phone] (Jefferson carlson) 05/03/2022 Office Visit Dermatology Neil Kent M D [address] [place] [address] (Jefferson carlson) 05/05/2022 Office Visit Optometry Yeny David, OD [address] [facility] [place] [address] (Jefferson carlson) 05/11/2022 Virtual Visit Pharm Diana Eckert , [facility] [address] [place] [address] (Wo rk) 05/14/2022 Office Visit Cardiology Livan Sharif MD [address] [place] [address] (Wo rk) 05/31/2022 Office Visit Family Practice Valery Veronica PA-C [address] [place], [place] [address] (Wo rk) Scheduled Referrals Name Type Priority Associated Diagnoses [facility] REFERRAL - Referral Routine Anxiety Ord ered: 06/04/2020 Adult; Outpatient Treatment; Individual/Couples/Family/ Group Therapy/Health Psychology; [facility]: [facility] ; We will contact you to schedule the appointment or please call with any questions documented as of this encounter Procedures Procedure Name Priority Date/Time Associated Diagnosis Comme nts LEADLESS FIELD ARTILLERY FIRE CONTROL MAN 3 Routine 06/04/2020 11:15 AM MUFFLER MECHANIC Palpita tions TO 7 DAYS documented in this encounter Visit Diagnoses Diagnosis Anxiety - Primary Anxiety state, unspecified Palpitations Seizure (H) Other convulsions Less than 8 weeks gestation of state, incidental documented in this encounter Additional Health Concerns Assessment Noted Time PHQ-9 Depression Total Score: 9 06/04/2020 10:35 AM CS T documented as of this encounter Care Teams Medical Record Transcriber Relationship Specialty Start Date End Date Marija Edgar APRN PCP - General Nurse Practitioner 04/30/20 LEAD RAMP SERVICE MAN [address] [place] [address] Lita Oseguera Personal Advocate & 02/28/20 Liaison (PAL) Rakesh Cid Assigned PCP 03/02/20 06/07/20 [place] [address] [address] [place], [place] [phone] Chanelle Mccann Assigned OBGYN Provider 05/02/20 05/09/21 ARLENE Mooney CNAdam [address] [facility] [place], [facility] [address] [place] [address] Lesley Moody, Community Health Worker 05/30/20 06/08/20 [place] Kyara De La Fuente, VJ Specialty Care Neurology 06/04/20 03/05/21 Coordinator Mynor Broussard MD Assigned Surgical 06/01/20 11/28/21 [address] [facility] Provider [address] [place] [address] Melody Dotson Neuroscience 06/04/20 MD Keisha Provider [address] [place] [address] documented as of this encounter
--- OUTSIDE RECORDS SUMMARY | 2022-04-28 01:21 | XMS_ITS | Encounter Summary ---
:2000 Author Organization [facility] Address [address] [place] [address] Care Team Providers Name Role Phone Lita Oseguera Unavailable Unavailable Marija Edgar APRN DRY END OPERATOR Primary Care Provider [phone] Chanelle Mccann APRN CNM Unavailable + Kyara De La Fuente RN Unavailable Marija Edgar APRN DRY END OPERATOR Unavailable Mynor Broussard MD Unavailable Keisha Dotson MD Unavailable Encounter Details Date Type Department Care Team Description 08/05/2020 Travel Social History Tobacco Use Types Packs/Day [...] How often do you attend baptist or holiness services? Never 09/22/2021 Do you [...] slept in a senior care (including now)? Sex Assigned at Date Recorded Female 03/02/2021 5:45 PM CDT COVID-19 Exposure Response Date Recorded In the last month, have you been in contact with No / Unsure 08/05/2020 9:35 AM BUNDLE BREAKER someone who was confirmed or suspected to have Coronavirus / COVID-19? documented as of this encounter Plan of Treatment Upcoming Encounters Date Type Specialty Care Team Description 04/28/2022 Office Visit Family Practice Anthony Doe, [place] [address] [place] [address] (Wo rk) 05/03/2022 Office Visit Dermatology Neil Kent M D [address] [place], [place] [address] (Wo rk) 05/05/2022 Office Visit Optometry Yeny David, OD [address] [facility] [address] [place] [phone] (Wo rk) 05/11/2022 Virtual Visit Pharm D Diana Desir , [facility] [address] [place], [place] [address] (Wo rk) 05/14/2022 Office Visit Cardiology Livan Sharif MD [address], [facility] [address] [place] [address] (Wo rk) 05/31/2022 Office Visit Family Practice Valery Veronica PA-C [address] [place] [address] (Wo rk) documented as of this encounter Visit Diagnoses Not on filedocumented in this encounter Additional Health Concerns Assessment Noted Time PHQ-9 Depression Total Score: 9 06/25/2020 7:04 AM BUNDLE BREAKER documented as of this encounter Care Teams Junior Assistant Manager Relationship Specialty Start Date End Date Marija Edgar APRN PCP - General Nurse Practitioner 04/30/20 DRY END OPERATOR [address] [place], [place] [phone] Lita Oseguera Personal Advocate & 02/28/20 Liaison (PAL) Chanelle Mccann Assigned OBGYN Provider 05/02/20 05/09/21 [place] [address] [address] [facility], [facility] [address] [place] [address] Kyara De La Fuente RN Specialty Care Neurology 06/04/20 03/05/21 Coordinator Marija Edgar APRN Assigned PCP 06/08/20 DRY END OPERATOR [address] [place], [place] [phone] Mynor Broussard MD Assigned Surgical 06/01/20 11/28/21 [address] [facility] Provider [address] [place] [address] Mauri, Assigned Neuroscience 06/04/20 MD Keisha Provider [address] [place] [address] documented as of this encounter
--- OUTSIDE RECORDS SUMMARY | 2022-04-28 01:21 | XMS_ITS | Encounter Summary ---
:2000 Author Organization [facility] Address [address] [place] [address] Care Team Providers Name Role Phone Lita Oseguera Unavailable Unavailable Rakesh Cid PA-C Unavailable [phone] Marija Edgar LITHOGRAPHIC PRESS OPERATOR APPRENTICE SALES OPERATIONS SPECIALIST Primary Care Provider [phone] [facility] LITHOGRAPHIC PRESS OPERATOR APPRENTICE CNM Unavailable + Lesley Moody MA Unavailable Kyara De La Fuente RN Unavailable Mynor Broussard MD Unavailable Keisha Dotson MD Unavailable Encounter Details Date Type Department Care Team Description 06/03/2020 Telephone [facility] Epilepsy Care Keisha Dotson, [address] [place], [place] [phone] [place] [address] (Wo rk) Social History Tobacco [...] How often do you attend buddhism or islam services? Never 09/22/2021 Do you [...] slept in a senior living (including now)? Sex Assigned at Date Recorded Female 03/02/2021 5:45 PM CDT COVID-19 Exposure Response Date Recorded In the last month, have you been in contact with No / Unsure 06/04/2020 10:30 AM TANK TRUCK MILK RECEIVER someone who was confirmed or suspected to have Coronavirus / COVID-19? documented as of this encounter Miscellaneous Notes Telephone Encounter - Keisha Dotson MD - 06/04/2020 10:26 AM TANK TRUCK MILK RECEIVER I talked with the patient. She informed me that she would like to try levetiracetam instead of lamotrigine. She understands the possibility of worsening her anxiety and she would let me know if that happens. Keisha Dotson MD TRUCK MILK RECEIVER Telephone Encounter - Noa Pao - 06/03/2020 1:41 PM CST Patient just called back, was pretty sure it was Keppra? Which she looked into and thought that would be better medication. She would like to start that if possible? TRUCK MILK RECEIVER Telephone Encounter - Pao Latham - 06/03/2020 1:22 PM CST What is the concern that needs to be addressed by a nurse? Patient called after her visit with Dr. Murray and said they had discussed two possible medications during the visit.She is going with the Lamotrigine for now. She wanted to look into the other medications side effects but could not remember the name of it? I looked through the visit notes and was unable to locate the name as well. May a detailed message be left on voicemail? yes Date of last office visit: 06/03/20 Message routed to:Amber Hernandez TRUCK MILK RECEIVER documented in this encounter Plan of Treatment Upcoming Encounters Date Type Specialty Care Team Description 04/28/2022 Office Visit Family Practice Anthony Doe, [place] [address] [place], [place] [phone] (Wo rk) 05/03/2022 Office Visit Dermatology Neil Kent M D [address] [place], [place] [phone] (Wo rk) 05/05/2022 Office Visit Optometry Yeny David, OD [address] [facility] [address] [place] [phone] (Wo rk) 05/11/2022 Virtual Visit Pharm Diana Eckert , [facility] [address] [place], [place] [phone] (Wo rk) 05/14/2022 Office Visit Cardiology Livan Sharif MD [address] [facility] [address] , [facility] [place] [address] [place], [place] [phone] (Wo rk) 05/31/2022 Office Visit Family Practice Valery Veronica PA-C [address] [place], [place] [phone] (Wo rk) documented as of this encounter Visit Diagnoses Diagnosis Convulsions, unspecified convulsion type (H) - Primary documented in this encounter Additional Health Concerns Assessment Noted Time PHQ-9 Depression Total Score: 6 08/28/2020 7:05 AM TANK TRUCK MILK RECEIVER documented as of this encounter Care Teams Financial Institution Treasurer Relationship Specialty Start Date End Date Marija Edgar APRN PCP - General Nurse Practitioner 04/30/20 SALES OPERATIONS SPECIALIST [address] [place] [address] Lita Oseguera Personal Advocate & 02/28/20 Liaison (PAL) Rakesh Cid Assigned PCP 03/02/20 06/07/20 [address] [address] [place] [address] Chanelle Mccann Assigned OBGYN Provider 05/02/20 05/09/21 [place] [address] [place] [address] Lesley Moody, Community Health Worker 05/30/20 06/08/20 [place] Kyara De La Fuente, VJ Specialty Care Neurology 06/04/20 03/05/21 Coordinator Mynor Broussard MD Assigned Surgical 06/01/20 11/28/21 [address] [facility] Provider [address] [place] [id number] Melody Dotson Neuroscience 06/04/20 MD Keisha Provider [address] [place], [place] [phone] documented as of this encounter
--- OUTSIDE RECORDS SUMMARY | 2022-04-28 01:21 | XMS_ITS | Encounter Summary ---
:2000 Author Organization [facility] Address [address] [place] [address] Care Team Providers Name Role Phone OumarLita neri Unavailable Unavailable Marija Edgar APRN MATERIALS RECYCLER Primary Care Provider Chanelle Mccann APRN CNM Unavailable + Kyara De La Fuente RN Unavailable Marija Edgar APRN MATERIALS RECYCLER Unavailable Mynor Broussard MD Unavailable Keisha Dotson MD Unavailable Encounter Details Date Type Department Care Team Description 06/24/2020 Travel Social History Tobacco Use Types Packs/Day [...] How often do you attend gnosticist or hoahaoism services? Never 09/22/2021 Do you [...] or slept in a detention (including now)? Sex Assigned at Date Recorded Female 03/02/2021 5:45 PM CDT COVID-19 Exposure Response Date Recorded In the last month, have you been in contact with No / Unsure 06/24/2020 3:01 PM HEARING THERAPY TEACHER someone who was confirmed or suspected to have Coronavirus / COVID-19? documented as of this encounter Plan of Treatment Upcoming Encounters Date Type Specialty Care Team Description 04/28/2022 Office Visit Family Practice Anthony Doe PA-C [address] [place] [address] (Wo rk) 05/03/2022 Office Visit Dermatology Neil Kent M D [address] [place], [place] [phone] (Wo rk) 05/05/2022 Office Visit Optometry Yeny David, OD [address] [facility] [address] [place] [phone] (Wo rk) 05/11/2022 Virtual Visit Pharm D Diana Desir , [facility] [address] [place], [place] [address] (Wo rk) 05/14/2022 Office Visit Cardiology Livan Sharif MD [address], [address] [place] [address] (Wo rk) 05/31/2022 Office Visit Family Practice Valery Veronica PA-C [address] [place] [address] (Wo rk) documented as of this encounter Visit Diagnoses Not on filedocumented in this encounter Additional Health Concerns Assessment Noted Time PHQ-9 Depression Total Score: 9 06/25/2020 7:04 AM HEARING THERAPY TEACHER documented as of this encounter Care Teams Supervisor Force Adjustment Relationship Specialty Start Date End Date Marija Edgar APRN PCP - General Nurse Practitioner 04/30/20 MATERIALS RECYCLER [address] [place], [place] [phone] Lita Oseguera Personal Advocate & 02/28/20 Liaison (PAL) Chanelle Mccann Assigned OBGYN Provider 05/02/20 05/09/21 [place] [address] [address] [facility] [address] [place] [address] Kyara De La Fuente, VJ Specialty Care Neurology 06/04/20 03/05/21 Coordinator Marija Edgar APRN Assigned PCP 06/08/20 MATERIALS RECYCLER [address] [place], [place] [phone] Mynor Broussard MD Assigned Surgical 06/01/20 11/28/21 [address] [facility] Provider [address] [place], [place] [phone] Mauri Assigned Neuroscience 06/04/20 MD Keisha Provider [address] [place] [address] documented as of this encounter
--- OUTSIDE RECORDS SUMMARY | 2022-04-28 01:21 | XMS_ITS | Encounter Summary ---
:2000 Author Organization [facility] Address [address] [place] [address]. [place] [address] Care Team Providers Name Role Phone Lita Oseguera Unavailable Unavailable Marija Edgar APRN NAUMKEAG OPERATOR Primary Care Provider [phone] Chanelle Mccann RUFFLER CNM Unavailable + Kyara De La Fuente RN Unavailable Marija Edgar APRN NAUMKEAG OPERATOR Unavailable Mynor Broussard MD Unavailable Keisha Dotson MD Unavailable Reason for Visit Reason Onset Date Comments No Show 07/30/2020 Encounter Details Date Type Department Care Team Description 07/30/2020 Virtual Visit [facility] Mynor Broussard, NO BRIELLE W (Primary Dx) Urology Clinic Dee ACEVEDO [address] [address] [place] [address] [place] [address] Social History Tobacco Use Types Packs/Day Years [...] How often do you attend spiritism or confucianist services? Never 09/22/2021 Do you belong to [...] slept in a care home (including now)? Sex Assigned at Date Recorded Female 03/02/2021 5:45 PM CDT documented as of this encounter Progress Notes Mynor Broussard MD - 07/30/2020 4:30 PM CST This patient was a no show for this scheduled appointment. VIORAL HEALTH SPECIALIST documented in this encounter Plan of Treatment Upcoming Encounters Date Type Specialty Care Team Description 04/28/2022 Office Visit Family Practice Anthony Doe PA-C [address] [place], [place] [phone] (Jefferson carlson) 05/03/2022 Office Visit Dermatology Neil Kent M D [address] [place] [phone] (Jefferson carlson) 05/05/2022 Office Visit Optometry Yeny David, OD [address] [facility] [address] [place], [place] [phone] (Wo rk) 05/11/2022 Virtual Visit Pharm Diana Eckert , [facility] [address] [place], [place] [phone] (Wo rk) 05/14/2022 Office Visit Cardiology Livan Sharif MD [address] [facility] [address] [place], [place] [address] (Wo rk) 05/31/2022 Office Visit Family Practice Valery Veronica , PAUcheC [address] [place], [place] [address] (Wo rk) documented as of this encounter Visit Diagnoses Diagnosis NO SHOW - Primary documented in this encounter Additional Health Concerns Assessment Noted Time PHQ-9 Depression Total Score: 9 06/25/2020 7:04 AM BEHAVIORAL HEALTH SPECIALIST documented as of this encounter Care Teams Wood Room Supervisor Relationship Specialty Start Date End Date Marija Edgar APRN PCP - General Nurse Practitioner 04/30/20 NAUMKEAG OPERATOR [address] [place] [address] Lita Oseguera Personal Advocate & 02/28/20 Liaison (PAL) Chanelle Mccann Assigned OBGYN Provider 05/02/20 05/09/21 ARLENE Mooney [facility] [address], [facility] [address] [place], [place] [address] Kyara De La Fuente, VJ Specialty Care Neurology 06/04/20 03/05/21 Coordinator Marija Edgar APRN Assigned PCP 06/08/20 NAUMKEAG OPERATOR [address] [place], [place] [phone] Mynor Broussard MD Assigned Surgical 06/01/20 11/28/21 [address] [facility] Provider [address] [place], [place] [address] Melody Dotson Neuroscience 06/04/20 MD Keisha Provider [address] [place], [place] [address] documented as of this encounter
--- OUTSIDE RECORDS SUMMARY | 2022-04-28 01:21 | XMS_ITS | Encounter Summary ---
:2000 Author Organization [facility] Address [address] [place] [id number] Care Team Providers Name Role Phone Lita Oseguera Unavailable Unavailable Marija Edgar APRN DIRECTOR WEIGHTS AND MEASURES Primary Care Provider [phone] Chanelle Mccann APRN CNM Unavailable + Kyara De La Fuente RN Unavailable Marija Edgar APRN DIRECTOR WEIGHTS AND MEASURES Unavailable Mynor Broussard MD Unavailable Keisha Dotson MD Unavailable Reason for Referral CV Testing (Routine) - Closed Specialty Diagnoses / Procedures Referred By Contact Refer red To Contact Cardiology Diagnoses Palpitations Joao Rehman MD Rh Cv Cardiac Svc [facility] Procedures Leadless electrical tryout person 8 to 14 Days ZZHC EXT ECG > 48HR TO 21 DAY RCRD W/CONECT INTL RCRD ZZC EXT ECG > 48HR TO 21 DAY [facility] [address] [facility] [address] [place], [place] [phone] Fax: Referral ID Status Reason Start Date Expiration Date Visits Requ ested Visits Authorized [id number] Closed 07/30/2020 07/30/2021 1 1 ERS AND ACQUISITIONS ATTORNEY Encounter Details Date Type Department Care Team Description 07/30/2020 Emergency [facility] Tyrese Rehman MD Palpitations; [facility] Emergency Dep t [facility] Chest pain, unspecified type ; [address] [place] Shortness of breath [place], [place] [address] [facility] [id number] [place] [address] [place] [address] (Wo rk) Social History Tobacco Use Types [...] How often do you attend quaker or episcopalian services? Never 09/22/2021 Do you [...] or slept in a chcf (including now)? Sex Assigned at Date Recorded Female 03/02/2021 5:45 PM CDT COVID-19 Exposure Response Date Recorded In the last month, have you been in contact with No / Unsure 07/30/2020 4:53 PM [facility] ACQUISITIONS ATTORNEY someone who was confirmed or suspected to have Coronavirus / COVID-19? documented as of this encounter Last Filed Vital Signs Vital Sign Reading Time Taken Comments Blood Pressure 107/64 07/30/2020 8:30 PM [facility] [employer] [facility]NEY Pulse 88 07/30/2020 8:30 PM [facility] [employer]ISITION[employer] [facility]ORNEY Temperature 36.9 ??C (98.4 ??F) 07/30/2020 5:01 PM [facility] [employer] [facility]ORNEY Respiratory Rate 18 07/30/2020 8:43 PM [facility] [employer]QUISITIONS ATTORNEY Oxygen Saturation 97% 07/30/2020 8:30 PM [facility] [employer] ACQUISITIONS ATTORNEY Inhaled Oxygen Concentration - - Weight 88.9 kg (196 lb) 07/30/2020 5:01 PM [facility] [employer] ACQUISITIONS ATTORNEY Height 168.9 cm (5' 6.5) 07/30/2020 5:01 PM [facility] [employer] ACQUISITIONS ATTORNEY Body Mass Index 31.16 07/30/2020 5:01 PM [facility] [employer] ACQUISITIONS ATTORNEY documented in this encounter Discharge Instructions Discharge InstructionsJoao Rehman MD - 07/30/2020 8:27 PM CST Discharge Instructions Palpitations Palpitations are an unusual [...] is anything that worries you. Discharge Instructions Chest Pain You have been [...] your regular provider, please do the following: If you have questions, contact your regular [...] if there is anything that worries you. ERS AND ACQUISITIONS ATTORNEY AttachmentsThe following attachments cannot be sent through Care Everywhere. Shortness of Breath (Dyspnea) (Barbadian)documented in this encounter Medications at Time of [...] as of this encounter ED Notes Rain Kong RN - 07/30/2020 5:28 PM CST Pt ambulated to restroom independently. Steady gait. ERS AND ACQUISITIONS ATTORNEY Anni Sommers RN - 07/30/2020 4:59 PM CST Pt presents for evaluation of feeling short of breath with and increased HR. Pt is currently 15 weeks . Pt was walking with a friend, fell on her bottom in the snow and then symptoms started. Pt's friend checked HR and thought it to be in the 200s. Pt also c/o left sided chest pain. Pain is sharp, dull and tight. Rated 5/10. Is feeling anxious after event. Denies any abdominal pain or vaginalbleeding. ERS AND ACQUISITIONS ATTORNEY Joao Rehman MD - 07/30/2020 4:52 PM CST History Chief Complaint: Shortness of breath The history is provided by the patient. Kim Johnson is a 20 year old female with history of Asthma, seizures, and is and is ~15 weeks who presents with shortness of breath/cehst pain/episode palpitations. She states hat she was trying to go and exercise today with friends and was in the car around 30-45 minutes prior to arrival when she felt short of breath and had palpitations. She notes that when they arrived she had a bout of emesis and had to sit down in some snow. She reports that she then had her GAS BRAZER friend take herHR and noted it to be around 200. She reports that when she woke up this morning she had some chest pressure that felt different than normal. The patient has had on and off diarrhea that is usually normal for her. She reports that her family has a strong history of cardiac issues. She notes that she has had her PCP tell her that she has a fast heart rate and that she has been told to monitor her heart but with COVID she has not been able to get an appointment. No personal h/o DVT, PE; no hemoptysis. She reports that she follows [facility] in [place] and had reassuring US of her pregnancy4 weeks ago. She denies vaginal bleeding or abdominal pain. She has intermittent cough with nausea. Review of Systems Constitutional: Negative for fever. Respiratory: Positive for chest tightness and shortness of breath. Negative for cough. Cardiovascular: Positive for chest pain and palpitations. Gastrointestinal: Positive for nausea and vomiting. Negative for abdominal pain and diarrhea. A 10 point ROS was obtained and negative except as noted here and in HPI Allergies: No known drug allergies Medications: Folic acid Keppra Omeprazole Naproxen Prenatals Sertraline Past Medical History: Anxiety CKD Depressive disorder GERD Seizures Anxiety Asthma Ureteral stones, bilateral Headache Past Surgical History: GI surgery Family History: Heart disease Brain tumor, sister Social History: Smoking status: Former smoker as of 11/2019 Alcohol use: Not currently Drug use: no PCP: Marija Edgar Presents to the ED alone Physical Exam Patient Vitals for the past 24 hrs: BP Temp Temp src Pulse Resp SpO2 Height Weight 07/30/20 2043 -- -- -- -- 18 -- -- -- 07/30/202029 107/64 -- -- 88 20 97 % -- -- 07/30/20 2000 118/69 -- -- 87 19 95 % -- -- 07/30/20 1800 133/76 -- -- 98 23 98 % -- -- 07/30/20 1730 135/80 -- -- 108 20 98 % -- -- 07/30/20 1701 (!) 146/70 98.4 ??F (36.9 ??C) Oral 118 20 100 % 1.689 m (5' 6.5) 88.9 kg (196 lb) Physical Exam VS: Reviewed per above HENT: Mucous membranes moist EYES: sclera anicteric CV: Rate as noted, regular rhythm. RESP: Effort normal. Breath sounds are normal bilaterally. GI: no tenderness/rebound/guarding, not distended. NEURO: Alert, moving all extremities MSK: No deformity of the extremities SKIN: Warm and dry Emergency Department Course ECG: ECG taken at 1712, ECG read at 1717 Normal sinus rhythm Nonspecific ST abnormality Abnormal ECG No significant changes noted compared to prior 03/26/20 Rate 95 bpm. NV interval 144 ms. QRS duration 86 ms. QT/QTc 350/439 ms. P-R-T axes 40 50 26. Imaging: US Lower extremity venous: 1. No deep venous thrombosis in the bilateral lower extremities. Reading per radiology Chest XR PORT: negative chest. Reading per radiology Laboratory: CBC: WBC 8.5, HGB 11.7, PLT 218 CMP: potassium 3.3 (L), Bun 5 (L), Albumin 3.2(L), o/w WNL (Creatinine: 0.54) Creatinine urine calculation only: 177 Protein random urine with creat ratio: 0.12 random; ration 0.07 D-dimer: <0.3 BNP: 24 Troponin (Collected 2022): <0.015 Troponin (Collected 1948): <0.015 Symptomatic Influenza A/B antigen & COVID-19 PCR: negative UA: Protein Albumin: 10 (A), Bacteria: few (A), Mucous: Present, o/w Negative Emergency Department Course: Reviewed: I reviewed the patient's nursing notes, vitals, past medical records, Care Everywhere. Assessments: 1726 I performed an assessment and examination of the patient as noted above. 1919 I reassessed the patient. 2014 Findings and plan explained to the Patient. Patient discharged home with instructions regardingsupportive care, medications, and reasons to return. The importance of close follow-up was reviewed. Interventions: 1836 NS 1L IV Bolus Medications 0.9% sodium chloride BOLUS (0 mLs Intravenous Stopped 07/30/202031) Disposition: The patient was discharged to home. Impression & Plan Medical Decision Making: Kim Johnson is a 20 year old female who presents to the ER for evaluation of episode of palpitations, shortness of breath, chest discomfort. On arrival heart rate is in the low 100s. EKG is sinus rhythm without specific ischemic change. Serial troponin testing is negative. I have low suspicion for occult ACS. No evidence of DVT in the extremities clinically and no evidence of DVT on ultrasound of the bilateral lower extremities. D-dimer is negative. No hemoptysis. Based on the YEARS algorithm, PEis very unlikely. I discussed this with patient, and we are in agreement to hold off on any CT imaging at this time to further evaluate for PE. Chest x-ray was clear. It is possible that patient had episode of tachydysrhythmia such as SVT that may have contributed to her symptoms today. I ordered outpatient Zio patch testing in order to further evaluate for occult tachydysrhythmias. She ambulated in the ER and felt better. After IV fluid bolus, heart rate did improve. We did discuss possible contribu tion of dehydration as well and importance of staying hydrated. COVID testing is fortunately negative. I encouraged close primary care and INSPECTOR BOILER follow-up. Return precautions were discussed prior to discharge. Diagnosis: ICD-10-CM 1. Palpitations R00.2 Leadless electrical tryout person 8 to 14 Days 2. Chest pain, unspecified type R07.9 3. Shortness of breath R06.02 Scribe Disclosure: I, Brea Sandra, am serving as a scribe at 5:27 PM on 07/30/2020 to document services personally performed by Joao Rehman MD based on my observations and the provider's statements to me. Joao Rehman MD 07/30/202049 Joao Rehman MD 07/30/202102 ERS AND ACQUISITIONS ATTORNEY documented in this encounter Plan of Treatment Upcoming Encounters Date Type Specialty Care Team Description 04/28/2022 Office Visit Family Practice Anthony Doe, [address] [address] [place] [address] (Wo aldo) 05/03/2022 Office Visit Dermatology Neil Kent M D [address] [place], [place] [phone] (Wo aldo) 05/05/2022 Office Visit Optometry Yeny David, OD [address] [facility] [place] [phone] (Wo rk) 05/11/2022 Virtual Visit Pharm D Diana Desir , [facility] [address] [place], [place] [address] (Wo aldo) 05/14/2022 Office Visit Cardiology Livan Sharif MD [address] [place] [address] (Wo rk) 05/31/2022 Office Visit Family Practice Valery Veronica PA-C [address] [place] [address] (Wo rk) documented as of this encounter Procedures Procedure Name Priority Date/Time Associated Comments Diagnosis TROPONIN I STAT 07/30/2020 7:54 PM Results f or this [facility] ACQUISITIONS ATTORNEY procedure are i n the results section. US LOWER EXTREMITY STAT 07/30/2020 7:15 PM Res ults for this VENOUS DUPLEX MER[employer] AND ACQUISITIONS ATTORNEY procedure are in BILATERAL the results section. INFLUENZA A/B & STAT 07/30/2020 6:37 PM Result s for this SARS-COV2 PCR MERGERS AND ACQUISITIONS ATTORNEY procedure are in MULTIPLEX the results section. XR CHEST PORT 1 VIEW STAT 07/30/2020 6:04 PM R esults for this MERGERS AND ACQUISITIONS ATTORNEY procedure are i n the results section. ROUTINE UA WITH STAT 07/30/2020 5:22 PM Result s for this MICROSCOPIC MER[facility] AND ACQUISITIONS ATTORNEY procedure are i n the results section. PROTEIN RANDOM URINE STAT 07/30/2020 5:22 PM R esults for this MERGERS AND ACQUISITIONS ATTORNEY procedure are i n the results section. CREATININE URINE Routine 07/30/2020 5:22 PM Resul ts for this CALCULATION ONLY (LAB MERGERS AND ACQUISITIONS ATTORNEY proced ure are in ONLY) the results section. CBC WITH PLATELETS & STAT 07/30/2020 5:15 PM R esults for this DIFFERENTIAL MER[employer] AND ACQUISITIONS ATTORNEY procedure are i n the results section. TROPONIN I Routine 07/30/2020 5:15 PM Results f or this [employer] AND ACQUISITIONS ATTORNEY procedure are i n the results section. NT PROBNP INPATIENT Routine 07/30/2020 5:15 PM Re sults for this [employer] AND ACQUISITIONS ATTORNEY procedure are i n the results section. D DIMER QUANTITATIVE STAT 07/30/2020 5:15 PM R esults for this [employer] AND ACQUISITIONS ATTORNEY procedure are i n the results section. COMPREHENSIVE STAT 07/30/2020 5:15 PM Results for this METABOLIC PANEL MERGERS AND ACQUISITIONS ATTORNEY procedure ar e in the results section. EKG 12-LEAD, TRACING STAT 07/30/2020 5:12 PM R esults for this ONLY MER[employer] AND ACQUISITIONS ATTORNEY procedure are i n the results section. documented in this encounter Results LEADLESS CHISEL WORKER APPLICATION AND INTERP 8 TO 14 DAYS (08/05/2020 9:50 AM MERGERS AND ACQUISITIONS ATTORNEY) Anatomical Region Laterality Modality Other Specimen (Source) Anatomical Location Collection Method / Collectio n Time Received Time / Laterality Volume Narrative This result has an attachment that is no t available. Joao Rehman MD CV CARDIAC SERVICES ORDERABL ES Troponin I (07/30/2020 7:54 PM MERGERS AND ACQUISITIONS ATTORNEY) P athologist Signature Troponin I ES <0.015 0.000 - 07/30/2020 [facility] 0.045 ug/L 8:23 PM [facility] Comment: The 99th percentile for upper reference range is 0.045 ug/L. ??Troponin values in the range of 0.045 - 0.120 ug/L may b e associated with risks of adverse clinical events. Specimen Anatomical Collection Method Collection Time Receive d Time (Source) Location / / Volume Laterality Blood specimen 07/30/2020 7:54 PM 021 8:00 (specimen) MERGERS AND ACQUISITIONS ATTORNEY PM [facility] AND ACQUISITIONS ATTORNEY Joao Rehman MD LAB - BLOOD ORDERABLES Performing Organization Address City/State/ZIP Code Phon e Number [place] [address] [address] [place] [address] [place] [address] [phone] US Lower Extremity Venous Duplex Bilateral (07/30/2020 7:15 PM MERGERS AND ACQUISITIONS ATTORNEY) Anatomical Region Laterality Modality Vascular, Thigh, Leg Ultrasound Specimen (Source) Anatomical Collection Method Collection Time Re ceived Time Location / / Volume Laterality 07/30/2020 6:55 PM [facility]ERS AND ACQUISITIONS ATTORNEY Impressions 07/30/2020 7:27 PM MERGERS AND ACQUISITIONS ATTORNEY IMPRESSION: 1. ??No deep venous thrombosis in the bi lateral lower extremities. Narrative 07/30/2020 7:27 PM MERGERS AND ACQUISITIONS ATTORNEY EXAM: US LOWER EXTREMITY VENOUS DUPLEX BILATERAL LOCATION: [facility] DATE/TIME: 07/30/2020 6:55 PM INDICATION: ; , sob, eval for dv t; COMPARISON: None. TECHNIQUE: Venous Duplex ultrasound of b ilateral [...] icial thrombophlebitis. No popliteal cyst. Procedure Note Augustus Lozano MD - 07/30/2020Formatt ing of this note might be different from the original. EXAM: US LOWER EXTREMITY VENOUS DUPLEX B ILATERAL LOCATION: [facility] DATE/TIME: 07/30/2020 6:55 PM INDICATION: ; , sob, eval for dv t; COMPARISON: None. TECHNIQUE: Venous Duplex ultrasound of b ilateral [...] thrombosis in the bila teral lower extremities. Joao Rehman MD IMG US ORDERABLES Symptomatic Influenza A/B & SARS-CoV2 (COVID-19) Virus PCR Multiplex (07/30/2020 6:37 PM MERGERS AND ACQUISITIONS ATTORNEY) [facility] Method Time Signature Flu A/B & Nasopharyngeal 07/30/2020 [facility] SARS-COV-2 5:41 PM [facility] PCR Source HOSPITAL SARS-CoV-2 NEGATIVE 07/30/2020 [facility] PCR Result 7:11 PM [facility] Comment: SARS-CoV2 (COVID-19) RNA not de tected, presumed negative. Influenza A PCR Negative NEG^Negative 07/30/2020 7:11 PM [facility] Comment: Influenza A RNA not detected, p resumed negative. Influenza B PCR Negative NEG^Negative 07/30/2020 7:11 PM [facility] Comment: Influenza B RNA not detected, p resumed negative. Respiratory Syncytial (Note) 07/30/2020 7:11 PM [facility] Virus PCR HOSPITAL Comment: Test not performed with this il thodology. Flu A/B & SARS-CoV-2 PCR (Note) 07/30/2020 7:11 PM MERGERS AND ACQUISITIONS ATTORNEY [facility] Comment: Testing was performed using the candy [...] test, if coinfection would change clinical management. [facility] are certi fied under the Clinical Laboratory Improvement Amendments of 1987 (CLIA-88) as qualified to perform moderate and/or high complexity laboratory testin g. Specimen (Source) Anatomical Collection Method Collection Time Re ceived Time Location / / Volume Laterality Specimen from 07/30/2020 6:37 07/30/2020 nasopharyngeal PM [facility] AND ACQUISITIONS ATTORNEY 6:48 PM [facility] AND ACQUISITIONS ATTORNEY structure (specimen) Joao Rehman MD LAB - MICRO GENERAL ORDERABL ES Performing Organization Address City/State/ZIP Code Phon e Number [place] [address] [place] [address] [facility] [address] [place] [phone] XR Chest Port 1 View (07/30/2020 6:04 PM MERGERS AND ACQUISITIONS ATTORNEY) Anatomical Region Laterality Modality Chest Digital Radiography Specimen (Source) Anatomical Collection Method Collection Time Re ceived Time Location / / Volume Laterality 07/30/2020 5:53 PM MERGERS AND ACQUISITIONS ATTORNEY Impressions 07/30/2020 6:10 PM [facility] AND ACQUISITIONS ATTORNEY IMPRESSION: Negative chest. Narrative 07/30/2020 6:10 PM MERGERS AND ACQUISITIONS ATTORNEY EXAM: XR CHEST PORT 1 VW LOCATION: [facility] DATE/TIME: 07/30/2020 5:53 PM INDICATION: Shortness of breath, pregnan cy, chest pain COMPARISON: 03/26/2020 Procedure Note Augustus Lozano MD - 07/30/2020Formatt ing of this note might be different from the original. EXAM: XR CHEST PORT 1 VW LOCATION: [facility] DATE/TIME: 07/30/2020 5:53 PM INDICATION: Shortness of breath, pregnan cy, chest pain COMPARISON: 03/26/2020 IMPRESSION: Negative chest. Joao Rehman MD IMG DIAGNOSTIC IMAGING ORDER GARY Creatinine urine calculation only (07/30/2020 5:22 PM MERGERS AND ACQUISITIONS ATTORNEY) athologist Signature Creatinine 177 mg/dL 07/30/2020 [facility] Urine 5:55 PM [facility] Specimen Anatomical Collection Method Collection Time Receive d Time (Source) Location / / Volume Laterality 07/30/2020 5:22 PM 5:28 MERGERS AND ACQUISITIONS ATTORNEY PM [facility] AND ACQUISITIONS ATTORNEY Joao Rehman MD LAB - URINE ORDERABLES Performing Organization Address City/[facility]/ZIP [facility] [address], [place] [address] [facility] [address] [place], [place] [address], [facility] [phone] Protein random urine with Creat Ratio (07/30/2020 5:22 PM MERGERS AND ACQUISITIONS ATTORNEY) athologist Signature Protein Random 0.12 g/L 07/30/2020 [facility] Urine 5:51 PM [facility] Protein Total 0.07 0 - 0.2 07/30/2020 [facility] Urine g/gr g/g Cr 5:55 PM [facility] Specimen Anatomical Collection Method Collection Time Receive d Time (Source) Location / / Volume Laterality Urine specimen 07/30/2020 5:22 PM 021 5:28 (specimen) MERGERS AND ACQUISITIONS ATTORNEY PM [facility] AND ACQUISITIONS ATTORNEY Joao Rehman MD LAB - URINE ORDERABLES Performing Organization Address City/State/ZIP Code [facility] [address], [place] [address] [place] [address] [place] [address], [facility] [address] [place], [place] [address], [facility] [phone] (ABNORMAL) UA with Microscopic (07/30/2020 5:22 PM MERGERS AND ACQUISITIONS ATTORNEY) [facility] Method Time Signature Color Urine Yellow 07/30/2020 [facility] 5:59 PM [facility] Appearance Urine Slightly 07/30/2020 [facility] Cloudy 5:59 PM [facility] Glucose Urine Negative NEG^Negat 07/30/2020 [facility] shyam mg/dL 5:59 PM [facility] Bilirubin Urine Negative NEG^Negat 07/30/2020 [facility] shyam 5:59 PM [facility] Ketones Urine Negative NEG^Negat 07/30/2020 [facility] shyam mg/dL 5:59 PM [facility] Specific [place] 1.019 1.003 - 07/30/2020 [facility] Urine 1.035 5:59 PM [facility] Blood Urine Negative NEG^Negat 07/30/2020 [facility] shyam 5:59 PM [facility] pH Urine 5.5 5.0 - 7.0 07/30/2020 [facility] pH 5:59 PM [facility] Protein Albumin 10 (A) NEG^Negat 07/30/2020 [facility] Urine shyam mg/dL 5:59 PM [facility] Urobilinogen Normal 0.0 - 2.0 07/30/2020 [facility] mg/dL mg/dL 5:59 PM [facility] Nitrite Urine Negative NEG^Negat 07/30/2020 [facility] shyam 5:59 PM [facility] Leukocyte Negative NEG^Negat 07/30/2020 [facility] Esterase Urine shyam 5:59 PM [facility] Source Midstream 07/30/2020 [facility] Urine 5:22 PM [facility] WBC Urine 1 0 - 5 07/30/2020 [facility] /HPF 5:59 PM [facility] RBC Urine 1 0 - 2 07/30/2020 [facility] /HPF 5:59 PM [facility] Bacteria Urine Few (A) NEG^Negat 07/30/2020 [facility] shyam /HPF 5:59 PM [facility] Squamous 5 (H) 0 - 1 07/30/2020 [facility] Epithelial /HPF /HPF 5:59 PM [facility] Mucous Urine Present (A) NEG^Negat 07/30/2020 [facility] shyam /LPF 5:59 PM [facility] Hyaline Casts 1 0 - 2 07/30/2020 [facility] /LPF 5:59 PM [facility] Specimen (Source) Anatomical Collection Method Collection Time Re ceived Time Location / / Volume Laterality Examination of 07/30/2020 5:22 07/30/2020 5:28 midstream urine PM MERGERS AND ACQUISITIONS ATTORNEY PM MERGERS AND ACQUISITIONS ATTORNEY specimen (procedure) Joao Rehman MD LAB - URINE ORDERABLES Performing Organization Address City/[facility] Phon e Number [facility] [address], [place] [address] [facility] [address] [place], [place] [address], [facility] [phone] Troponin I (07/30/2020 5:15 PM MERGERS AND ACQUISITIONS ATTORNEY) athologist Signature Troponin I ES <0.015 0.000 - 07/30/2020 [facility] 0.045 ug/L 7:49 PM [facility] Comment: The 99th percentile for upper reference range is 0.045 ug/L. ??Troponin values in the range of 0.045 - 0.120 ug/L may b e associated with risks of adverse clinical events. Specimen Anatomical Collection Method Collection Time Receive d Time (Source) Location / / Volume Laterality 07/30/2020 5:15 PM 5:28 MERGERS AND ACQUISITIONS ATTORNEY PM [employer] AND ACQUISITIONS ATTORNEY Joao Rehman MD LAB - BLOOD ORDERABLES Performing Organization Address [facility]/ZIP [facility] Phon e Number M [facility] [address], [place] [address] [facility] [address] [place], [place] [address], [facility] [phone] Nt probnp inpatient (07/30/2020 5:15 PM MERGERS AND ACQUISITIONS ATTORNEY) athologist Signature N-Terminal Pro 24 0 - 450 07/30/2020 [facility] BNP Inpatient pg/mL 6:15 PM [employer]GERS AND ACQUISITIONS ATTORNEY [facility] Comment: Reference range shown and results flagge [...] Time (Source) Location / / Volume Laterality 07/30/2020 5:15 PM 5:28 MERGERS AND ACQUISITIONS ATTORNEY PM [employer] AND ACQUISITIONS ATTORNEY Joao Rehman MD LAB - BLOOD ORDERABLES Performing Organization Address City/[facility] Phon e Number [facility] [address] [place] [address] [phone] [facility] [address] [place] [address], [facility] [phone] D dimer quantitative (07/30/2020 5:15 PM MERGERS AND ACQUISITIONS ATTORNEY) P athologist Signature D Dimer <0.3 0.0 - 0.50 07/30/2020 [facility] ug/ml FEU 5:44 PM MERGERS AND ACQUISITIONS ATTORNEY [facility] Comment: This D-dimer assay is intended for use i n conjunction with a clinical pretest probability assessment model to exclude pulmonary embolism (PE) and deep venous thrombosis (DVT) in outpatients s uspected of PE or DVT. The cut-off value is 0.5 ug/mL FEU. Specimen Anatomical Collection Method Collection Time Receive d Time (Source) Location / / Volume Laterality Blood specimen 07/30/2020 5:15 PM 021 5:28 (specimen) MERGERS AND ACQUISITIONS ATTORNEY PM MERGERS AND ACQUISITIONS ATTORNEY Joao Rehman MD LAB - BLOOD ORDERABLES Performing Organization Address City/[facility] Phon e Number M [facility] [address], [place] 55[address] [facility] [address] [place], [place] [address] [place] [address] (ABNORMAL) Comprehensive metabolic panel (07/30/2020 5:15 PM [facility]) athologist Signature Sodium 135 133 - 144 07/30/2020 [facility] mmol/L 5:40 PM [facility] Potassium 3.3 (L) 3.4 - 5.3 07/30/2020 [facility] mmol/L 5:40 PM [facility] Chloride 106 94 - 109 07/30/2020 [facility] mmol/L 5:40 PM [facility] Carbon Dioxide 23 20 - 32 07/30/2020 [facility] mmol/L 5:46 PM [facility] Anion Gap 6 3 - 14 07/30/2020 REPLACED BY [facility] mmol/L 5:46 PM [facility] Glucose 91 70 - 99 07/30/2020 [facility]PL[facility]ED BY [facility] mg/dL 5:46 PM [facility] Urea Nitrogen 5 (L) 7 - 30 07/30/2020 [facility] mg/dL 5:46 PM [facility] Creatinine 0.54 0.52 - 07/30/2020 [facility] 1.04 mg/dL 5:46 PM [facility] GFR Estimate >90 >60 07/30/2020 [facility] mL/min/{1. 5:46 PM [facility] 73_m2} HOSPITAL Comment: Non GFR Calc Starting 06/27/2018, serum creatinine ba sed estimated GFR (eGFR) will be calculated using the Chronic Kidney Dise [facility] Epidemiology Collaboration (CKD-EPI) equation. GFR Estimate If >90 >60 mL/min/{1.73_m2} 07/30/2020 5: 46 PM [facility] Comment: GFR Calc Starting 06/27/2018, serum creatinine ba sed estimated GFR (eGFR) will be calculated using the Chronic Kidney Dise [facility] Epidemiology Collaboration (CKD-EPI) equation. Calcium 9.1 8.5 - 10.1 07/30/2020 5:46 PM [facility] mg/dL [facility] Bilirubin Total 0.3 0.2 - 1.3 mg/dL 07/30/2020 5:48 PM [facility] Albumin 3.2 (L) 3.4 - 5.0 g/dL 07/30/2020 5:48 PM [facility] Protein Total 7.4 6.8 - 8.8 g/dL 07/30/2020 5:48 PM [facility] Alkaline Phosphatase 55 40 - 150 U/L 07/30/2020 5:48 PM [facility] ALT 36 0 - 50 U/L 07/30/2020 5:48 PM [facility] AST 17 0 - 45 U/L 07/30/2020 5:48 PM [facility] Specimen Anatomical Collection Method Collection Time Receive d Time (Source) Location / / Volume Laterality Blood specimen 07/30/2020 5:15 PM 021 5:28 (specimen) MERGERS AND ACQUISITIONS ATTORNEY PM MERGERS AND ACQUISITIONS ATTORNEY Joao Rehman MD LAB - BLOOD ORDERABLES Performing Organization Address City/State/ZIP Code Phon e Number M [place] [address], [place] 55 [facility] [address] [phone] CBC with platelets differential (07/30/2020 5:15 PM [facility]) [facility] gist Method Time Signature WBC 8.5 4.0 - 07/30/2020 [facility] 11.0 5:31 PM [facility] 10e9/L [facility] RBC Count 4.31 3.8 - 5.2 07/30/2020 [facility] 10e12/L 5:31 PM [facility] Hemoglobin 11.7 11.7 - 07/30/2020 [facility] 15.7 g/dL 5:31 PM [facility] Hematocrit 35.0 35.0 - 07/30/2020 [facility] 47.0 % 5:31 PM [facility] MCV 81 78 - 100 07/30/2020 [facility] fl 5:31 PM [facility] MCH 27.1 26.5 - 07/30/2020 [facility] 33.0 pg 5:31 PM [facility] MCHC 33.4 31.5 - 07/30/2020 [facility] 36.5 g/dL 5:31 PM [facility] RDW 13.0 10.0 - 07/30/2020 [facility] 15.0 % 5:31 PM [facility] Platelet Count 218 150 - 450 07/30/2020 [facility] 10e9/L 5:31 PM [facility] Diff Method Automated 07/30/2020 [facility] Method 5:31 PM [facility] % Neutrophils 72.0 % 07/30/2020 [facility] 5:31 PM [facility] % Lymphocytes 19.5 % 07/30/2020 [facility] 5:31 PM [facility] % Monocytes 4.8 % 07/30/2020 [facility] 5:31 PM [facility] % Eosinophils 3.1 % 07/30/2020 [facility] 5:31 PM [facility] % Basophils 0.2 % 07/30/2020 [facility] 5:31 PM [facility] % Immature 0.4 % 07/30/2020 [facility] Granulocytes 5:31 PM [facility] Nucleated RBCs 0 0 /100 07/30/2020 [facility] 5:31 PM [facility] Absolute 6.1 1.6 - 8.3 07/30/2020 [facility] Neutrophil 10e9/L 5:31 PM [facility] Absolute 1.7 0.8 - 5.3 07/30/2020 [facility] Lymphocytes 10e9/L 5:31 PM [facility] Absolute 0.4 0.0 - 1.3 07/30/2020 [facility] Monocytes 10e9/L 5:31 PM [facility] Absolute 0.3 0.0 - 0.7 07/30/2020 [facility] Eosinophils 10e9/L 5:31 PM [facility] Absolute 0.0 0.0 - 0.2 07/30/2020 [facility] Basophils 10e9/L 5:31 PM [facility] Abs Immature 0.0 0 - 0.4 07/30/2020 [facility] Granulocytes 10e9/L 5:31 PM [facility] Absolute 0.0 07/30/2020 [facility] Nucleated RBC 5:31 PM [facility] Specimen Anatomical Collection Method Collection Time Receive d Time (Source) Location / / Volume Laterality Blood specimen 07/30/2020 5:15 PM 021 5:28 (specimen) MERGERS AND ACQUISITIONS ATTORNEY PM MERGERS AND ACQUISITIONS ATTORNEY Joao Rehman MD LAB - BLOOD ORDERABLES Performing Organization Address City/State/ZIP Code Phon e Number M [facility] [address] [place], [place] [address] [facility] [address] [place] [address] 7, [facility] [phone] EKG 12-lead, tracing only (07/30/2020 5:12 PM MERGERS AND ACQUISITIONS ATTORNEY) [facility] gist Method Time Signature Interpretation ECG Click View RADIOLOGY Image link RESULTS to view waveform and result Specimen (Source) Anatomical Collection Method Collection Time Re ceived Time Location / / Volume Laterality 07/30/2020 5:12 PM MERGERS AND ACQUISITIONS ATTORNEY Joao Rehman MD ECG ORDERABLES Performing Organization Address City/State/ZIP Code Phon e Number RADIOLOGY RESULTS documented in this encounter Visit Diagnoses Diagnosis Palpitations Chest pain, unspecified type Shortness of breath documented in this encounter Administered Medications Inactive Administered Medications - up to 3 most recent administrations Medication Order MAR Action Action Date Dose Rate Site 0.9% sodium chloride BOLUS New Bag 07/30/2020 6:36 PM MERGERS AND ACQUISITIONS ATTORNEY 1,000 mLs 1000 mL/hr Intravenous, 1,000 mL, ONCE, at 1,000 mL/hr, Administer over 1 Hours, On Tue07/30/20 at 1815, For 1 dose documented in this encounter Active and Recently Administered Medications Times are shown in MER[facility]ERS AND ACQUISITIONS ATTORNEY. Scheduled Medication Order 07/28/2020 07/29/2020 07/30/2020 0.9% sodium chloride BOLUS (COMPLETED) 1835 (New Bag - Provider: Rain Kong, RN)2031 (Stopped - Provider: Rain Kong, RN) Intravenous, 1,000 mL, ONCE, at 1,000 mL /hr, Administer over 1 Hours, Tue07/30/20 at 1815, For 1 dose documented in this encounter Additional Health Concerns Infection Onset Date Last Indicated Resolved Time Rule Out COVID-19 07/30/2020 07/30/2020 07/30/2020 7:1 1 PM MERGERS AND ACQUISITIONS ATTORNEY Assessment Noted Time PHQ-9 Depression Total Score: 9 06/25/2020 7:04 AM MERGERS AND ACQUISITIONS ATTORNEY documented as of this encounter Care Teams Certifier Relationship Specialty Start Date End Date Marija Edgar APRN PCP - General Nurse Practitioner 04/30/20 DIRECTOR WEIGHTS AND MEASURES [address] [place] [address] Lita Oseguera Personal Advocate & 02/28/20 Liaison (PAL) Chanelle Mccann Assigned OBGYN Provider 05/02/20 05/09/21 ARLENE Mooney CNM [address] [address] [facility] [address] [place], [place] [address] Kyara De La Fuente RN Specialty Care Neurology 06/04/20 03/05/21 Coordinator Marija Edgar APRN Assigned PCP 06/08/20 DIRECTOR WEIGHTS AND MEASURES [address] [place], [place] [phone] Mynor Broussard MD Assigned Surgical 06/01/20 11/28/21 6363 [facility] Provider [address] [place], [place] [address] Melody Dotson Neuroscience 06/04/20 MD Keisha Provider [address] [place] [address] documented as of this encounter
--- OUTSIDE RECORDS SUMMARY | 2022-04-28 01:21 | XMS_ITS | Encounter Summary ---
:2000 Author Organization [facility] Address [address] [place] [address] Care Team Providers Name Role Phone Lita Oseguera Unavailable Unavailable Marija Edgar APRN STAKEHOLDER MANAGER Primary Care Provider [phone] Chanelle Mccann APRN CNM Unavailable + Kyara De La Fuente RN Unavailable Marija Edgar APRN STAKEHOLDER MANAGER Unavailable Mynor Broussard MD Unavailable Keisha Dotson MD Unavailable Encounter Details Date Type Department Care Team Description 07/30/2020 Travel Social History Tobacco Use Types Packs/Day [...] How often do you attend shinto or mormon services? Never 09/22/2021 Do you [...] or slept in a alf (including now)? Sex Assigned at Date Recorded Female 03/02/2021 5:45 PM CDT COVID-19 Exposure Response Date Recorded In the last month, have you been in contact with No / Unsure 07/30/2020 4:53 PM HAIRSPRING CUTTER someone who was confirmed or suspected to have Coronavirus / COVID-19? documented as of this encounter Plan of Treatment Upcoming Encounters Date Type Specialty Care Team Description 04/28/2022 Office Visit Family Practice Anthony Doe, [place] [address] [place] [address] (Wo rk) 05/03/2022 Office Visit Dermatology Neil Kent M D [address] [place], [place] [phone] (Wo rk) 05/05/2022 Office Visit Optometry Yeny David, OD [address] [facility] [address] [place] [phone] (Wo rk) 05/11/2022 Virtual Visit Pharm D Diana Desir , [facility] [address] [place], [place] [address] (Wo rk) 05/14/2022 Office Visit Cardiology Livan Sharif MD [address], [facility] [address] [place] [address] (Wo rk) 05/31/2022 Office Visit Family Practice Valery Veronica PA-C [address] [place] [phone] (Wo rk) documented as of this encounter Visit Diagnoses Not on filedocumented in this encounter Additional Health Concerns Infection Onset Date Last Indicated Resolved Time Rule Out COVID-19 07/30/2020 07/30/2020 07/30/2020 7:1 1 PM HAIRSPRING CUTTER Assessment Noted Time PHQ-9 Depression Total Score: 9 06/25/2020 7:04 AM HAIRSPRING CUTTER documented as of this encounter Care Teams Nuclear Radiologist Relationship Specialty Start Date End Date Marija Edgar APRN PCP - General Nurse Practitioner 04/30/20 STAKEHOLDER MANAGER [address] [place], [place] [phone] Lita Oseguera Personal Advocate & 02/28/20 Liaison (PAL) Chanelle Mccann Assigned OBGYN Provider 05/02/20 05/09/21 [place] [address] [address] [facility] 200 [place], [place] [address] Kyara De La Fuente, VJ Specialty Care Neurology 06/04/20 03/05/21 Coordinator Marija Edgar APRN Assigned PCP 06/08/20 STAKEHOLDER MANAGER [address] [place], [place] [phone] Mynor Broussard MD Assigned Surgical 06/01/20 11/28/21 [address] [facility] Provider [address] [place] [id number] Mauri, Assigned Neuroscience 06/04/20 MD Keisha Provider [address] [place] [address] documented as of this encounter
--- OUTSIDE RECORDS SUMMARY | 2022-04-28 01:21 | XMS_ITS | Encounter Summary ---
:2000 Author Organization [facility] Address [address] [place] [address] Care Team Providers Name Role Phone Lita Oseguera Unavailable Unavailable Marija Edgar APRN COMPONENT ENGINEER Primary Care Provider [phone] Chanelle Mccann APRN CNM Unavailable + Kyara De La Fuente RN Unavailable Marija Edgar APRN COMPONENT ENGINEER Unavailable Mynor Broussard MD Unavailable Keisha Dotson MD Unavailable Mary Mejia Unavailable Unavailable Stacey Briones PRODUCT MANAGER MEDICAL DEVICE Unavailable Lesley Moody MA Unavailable Mary Mejia Unavailable Unavailable Lita Oseguera Unavailable Unavailable Galo Burrell MD Unavailable Cristina Wood Unavailable Unavailable Lesley Moody MA Unavailable Meredith Bedoya Unavailable Unavailable Cristina Wood Unavailable Unavailable Diana Desir [facility] Unavailable Rain Galaviz PA-C Unavailable [phone] Summer Lara MD Unavailable Summer Lara MD Unavailable + Summer Lara MD Unavailable + Tavia Wyatt MD Unavailable Unavailable Johnny Murillo MD Unavailable +- [phone] Erica Farrell DIRECTOR OF PEOPLE COMPONENT ENGINEER Unavailable + [phone] BeanTeresita [facility] Unavailable [phone] Tavia Wyatt MD Unavailable Unavailable Diana Desir [facility] Unavailable Rich Barrett MD Unavailable [phone] Neil Kent MD Unavailable Roney Story [facility] Unavailable Erica Farrell APRN COMPONENT ENGINEER Unavailable + Diana Desir [facility] Unavailable Reason for Visit Reason Comments Medication Refill Encounter Details Date Type Department Care Team Description 07/14/2020 Refill [facility] Rakesh Cid, Medication Refill [address] [phone] Social History Tobacco Use Types Packs/Day Years [...] or slept in a fpc (including now)? Sex Assigned at Date Recorded Female 03/02/2021 5:45 PM CDT COVID-19 Exposure Response Date Recorded In the last month, have you been in contact with No / Unsure 06/24/2020 3:01 PM SALES ESTIMATOR someone who was confirmed or suspected to have Coronavirus / COVID-19? documented as of this encounter Miscellaneous Notes Telephone Encounter - Estephania Black RN - 07/16/2020 11:38 AM SALES ESTIMATOR Routing refill request to provider for review/approval because: Labs out of range: PHQ9> 4 patient was seen 3 weeks ago. Estephania Black RN Flex S ESTIMATOR Telephone Encounter - Brea Perry RN - 07/16/2020 11:34 AM SALES ESTIMATOR Routing to correct clinic. S ESTIMATOR documented in this encounter Plan of Treatment Upcoming Encounters Date Type Specialty Care Team Description 04/28/2022 Office Visit Family Practice Anthony Doe, [place] [address] [place] [address] (Wo rk) 05/03/2022 Office Visit Dermatology Neil Kent M D [address] [place], [place] [address] (Wo rk) 05/05/2022 Office Visit Optometry Yeny David, OD [address] [address] [place] [phone] (Wo rk) 05/11/2022 Virtual Visit Pharm Diana Eckert , [facility] [address] [place], [place] [address] (Wo rk) 05/14/2022 Office Visit Cardiology Livan Sharif MD [address], [facility] [address] [place], [place] [address] (Wo rk) 05/31/2022 Office Visit Family Practice Valery Veronica , PA-C [address] [place], [place] [address] (Wo rk) documented as of this encounter Visit Diagnoses Diagnosis Anxiety Anxiety state, unspecified documented in this encounter Additional Health Concerns Infection Onset Date Last Indicated Resolved Time Rule Out COVID-19 07/30/2020 07/30/2020 07/30/2020 7:1 1 PM SALES ESTIMATOR Rule Out COVID-19 08/30/2020 08/30/2020 08/30/2020 5:0 5 PM SALES ESTIMATOR Rule Out COVID-19 09/24/2020 09/24/2020 09/24/2020 9:2 4 AM CDT Rule Out COVID-19 11/05/2020 11/05/2020 11/06/2020 1:0 9 PM CDT Rule Out COVID-19 05/11/2021 05/11/2021 05/13/2021 10: 18 AM CDT Rule Out COVID-19 07/13/2021 07/13/2021 07/14/2021 3:0 4 PM SALES ESTIMATOR Rule Out COVID-19 07/18/2021 07/18/2021 07/20/2021 1:5 6 PM SALES ESTIMATOR COVID-19 07/18/2021 07/18/2021 08/08/2021 11:39 PM SALES ESTIMATOR Rule Out COVID-19 12/18/2021 12/18/2021 12/19/2021 11: 34 AM CDT Rule Out COVID-19 02/24/2022 02/24/2022 02/25/2022 1:0 8 PM CDT Rule Out COVID-19 04/26/2022 04/26/2022 04/26/2022 6:4 7 AM CDT Assessment Noted Time PHQ-9 Depression Total Score: 9 06/25/2020 7:04 AM SALES ESTIMATOR documented as of this encounter Care Teams Direct Chill Casting Operator Relationship Specialty Start Date End Date Marija Edgar, PCP - General Nurse Practitioner 04/30/20 DIRECTOR OF PEOPLE COMPONENT ENGINEER [address] [place], [place] [phone] Lita Oseguera Personal Advocate & 02/28/20 Liaison (PAL) Chanelle Mccann Assigned OBGYN Provider 05/02/20 05/09/21 [place] [facility] [place] [address] [address] [address] [place], [place] [address] Kyara De La Fuente, VJ Specialty Care Neurology 06/04/20 03/05/21 Coordinator Marija Edgar, Assigned PCP 06/08/20 DIRECTOR OF PEOPLE COMPONENT ENGINEER [address] [place] [address] Mynor Broussard MD Assigned Surgical 06/01/20 11/28/21 [address] Provider [facility] 500 [place], [place] [address] Mauri, Assigned Neuroscience 06/04/20 MD Keisha Provider [address] [place] [address] Nikiatimothy Mary Financial Resource 08/07/2008/11 Worker Stacey Briones, Lead Slip Cover Cutter Primary Care - CC 08/11/20 12/30/20 PRODUCT MANAGER MEDICAL DEVICE Lesley Moody [facility] Worker 08/11/20 10/01/20 JOSE ALBERTO Avendano Mary Mejia Financial Resource 09/02/2009/09 Worker Lita Oseguera Personal Advocate & Family Medicine 09/10/20 09/21/20 Liaison (PAL) Galo Burrell MD Assigned Heart and 10/05/20 04/02/22 [address] [facility] Vascular Provider [address] [place] [address] Cristina Wood Financial Resource 10/07/20 10/14/20 Worker Lesley Moody [facility] Worker 10/23/20 12/30/20 JOSE ALBERTO Avendano Meredith Bedoya Financial Resource 10/23/20 11/23/20 Worker Cristina Wood Financial Resource 02/09/21 02/09/21 Worker Diana Desir, Pharmacist Pharmacist 04/17/21 [facility] [address] [place], [place] [address] Rain Galaviz Physician Stock Turner Dermatology 04/28/21 [address]ERT[address]aredes [address] [place] [address] [address] [facility] [place] [phone] Summer Lara MD Assigned OBGYN Provider 05/10/21 05/23/[address] [place], [place] [address] Summer Lara MD Assigned OBGYN Provider 05/31/21 03/12/[address] [place], [place] [address] Summer Lara MD Assigned OBGYN Provider 05/24/21 05/30/[address] [place], [place] [address] Tavia Wyatt MD Dermatology 07/14/21 Johnny Medrano Assigned Musculoskeletal 08/30/21 03/17/22 MD Ish Provider [address] [place], [place] [phone] Erica Farrell Nurse Practitioner Cardiovascular Disease 09/09/21 ARLENE Guidry COMPONENT ENGINEER [address] [facility] [address] [place], [place] [address] Teresita Bean Pharmacist Pharmacist 09/24/21 09/29/21 [facility] [address] [facility] [place] [address] Tavia Wyatt, Assigned Surgical 11/29/21 MD Provider Diana Desir, Assigned MTM Pharmacist 01/02/22 03/26/22 [facility] [address] [place], [place] [phone] Rich Barrett Physician Ophthalmology 01/21/22 Gerson Reyes MD [address] [facility] [address] [place] [address] Neil Kent MD MD Dermatology 02/24/22 500 [place] [address] Roney Story, Assigned Musculoskeletal 03/20/22 DPM Provider [address] [facility] [address] [place] [address] Erica Farrell Assigned Heart and 04/03/22 ARLENE Guidry COMPONENT ENGINEER Vascular Provider [address] [place] [address] Diana Desir, Assigned MTM Pharmacist 04/07/22 [facility] [address] [place] [address] documented as of this encounter
--- OUTSIDE RECORDS SUMMARY | 2022-04-28 01:21 | XMS_ITS | Encounter Summary ---
:2000 Author Organization [facility] Address [address] [place] [address]. [place] [address] Care Team Providers Name Role Phone Lita Oseguera Unavailable Unavailable Marija Edgar APRN LAMP CLEAN[address]RE[address] LIGHT Primary Care Provider [phone] Chanelle Mccann BRUSH CLEANER CNM Unavailable + Kyara De La Fuente RN Unavailable Marija Edgar APRN LAMP CLE[address] LIGHT Unavailable Mynor Broussard MD Unavailable Keisha Dotson MD Unavailable Reason for Visit Reason Onset Date Comments Kidney Stone(s) Followup REVIEW SYMPTOMS No Show 07/06/2020 Encounter Details Date Type Department Care Team Description 07/02/2020 Virtual Visit [facility] Mynor Broussard, NO BRIELLE W (Primary Dx) Urology Clinic Dee ACEVEDO [address] [place] [address] [place] [phone] [place] [address] Social History Tobacco Use Types Packs/Day Years [...] How often do you attend shinto or baptist services? Never 09/22/2021 Do you belong to any clubs or organizations such as No 09/22/2021 shinto groups, unions, fraAavya Health or athletic groups, or school groups? How [...] or slept in a assisted (including now)? Sex Assigned at Date Recorded Female 03/02/2021 5:45 PM CDT COVID-19 Exposure Response Date Recorded In the last month, have you been in contact with No / Unsure 06/24/2020 3:01 PM RENTAL MANAGER someone who was confirmed or suspected to have Coronavirus / COVID-19? documented as of this encounter Progress Notes Mynor Broussard MD - 07/02/2020 4:15 PM CST This patient was a no show for this scheduled appointment. AL MANAGER documented in this encounter Plan of Treatment Upcoming Encounters Date Type Specialty Care Team Description 04/28/2022 Office Visit Family [facility] Anthony Doe, R[place]ERTO [address] [place] [address] (Wo rk) 05/03/2022 Office Visit Dermatology Neil Kent M D 500 [place] [address] (Wo rk) 05/05/2022 Office Visit Optometry Frankie Natalie chuck Garcia, OD [address] [facility] [place] [address] (Wo rk) 05/11/2022 Virtual Visit Pharm D Diana Desir , [facility] [address] [place], [place] [address] (Wo rk) 05/14/2022 Office Visit Cardiology Livan Sharif MD [address] [facility] [address] [place], [place] [address] (Wo rk) 05/31/2022 Office Visit Family Practice Valery Veronica PA-C [address] [place], [place] [address] (Wo rk) documented as of this encounter Visit Diagnoses Diagnosis NO SHOW - Primary documented in this encounter Additional Health Concerns Assessment Noted Time PHQ-9 Depression Total Score: 9 06/25/2020 7:04 AM RENTAL MANAGER documented as of this encounter Care Teams Poker Machine Attendant Relationship Specialty Start Date End Date Marija Edgar APRN PCP - General Nurse Practitioner 04/30/[address] [address] [place] [address] Lita Oseguera Personal Advocate & 02/28/20 Liaison (PAL) Chanelle Mccann Assigned OBGYN Provider 05/02/20 05/09/21 ARLENE Mooney CNAdam [address] [address] [facility] 200 [place], [place] [address] Kyara De La Fuente, VJ Specialty Care Neurology 06/04/20 03/05/21 Coordinator Marija Edgar APRN Assigned PCP 06/08/[address] [address] [place], [place] [phone] Mynor Broussard MD Assigned Surgical 06/01/20 11/28/21 [address] [facility] Provider [address] [place], [place] [address] Mauri, Melody Neuroscience 06/04/20 MD Keisha Provider [address] [place], [place] [phone] documented as of this encounter
--- OUTSIDE RECORDS SUMMARY | 2022-04-28 01:21 | XMS_ITS | Encounter Summary ---
:2000 Author Organization [facility] Address [address] [place] [address]. [place] [address] Care Team Providers Name Role Phone Lita Oseguera Unavailable Unavailable Marija Edgar APRN MANAGER PEOPLE Primary Care Provider [phone] Chanelle Mccann APRN CNM Unavailable + Kyara De La Fuente RN Unavailable Marija Edgar APRN MANAGER PEOPLE Unavailable Mynor Broussard MD Unavailable Keisha Dotson MD Unavailable Reason for Visit Reason Onset Date Comments No Show 07/16/2020 Encounter Details Date Type Department Care Team Description [facility] Mental Health & Ray, PsyD Addiction [facility] [address] [place] [address] [phone] Social History Tobacco Use Types Packs/Day Years [...] How often do you attend amish or sabianist services? Never 09/22/2021 Do you [...] with No / Unsure 06/24/2020 3:01 PM JINRIKSHA DRIVER someone who was confirmed or suspected to have Coronavirus / COVID-19? documented as of this encounter Progress Notes Alexis Vazquez PsyD - 07/16/2020 9:45 AM CST This patient was a no show for this scheduled appointment. IKSHA DRIVER documented in this encounter Plan of Treatment Upcoming Encounters Date Type Specialty Care Team Description 04/28/2022 Office Visit Family Practice Anthony Doe PA-C [address] [place] [address] (Wo rk) 05/03/2022 Office Visit Dermatology Neil Kent M D 500 [place], [place] [address]165 (Wo rk) 05/05/2022 Office Visit Optometry Yeny David, OD [address] [facility] [place] [address] (Wo rk) 05/11/2022 Virtual Visit Pharm D Diana Desir , [facility] [address] [place], [place] [address] (Wo rk) 05/14/2022 Office Visit Cardiology Livan Sharif MD [address] [facility] [address] [place], [place] [address] (Wo rk) 05/31/2022 Office Visit Family Practice Valery Veronica , PA-C 909 [place], [place] [address] (Wo rk) documented as of this encounter Visit Diagnoses Diagnosis NO SHOW - Primary documented in this encounter Additional Health Concerns Assessment Noted Time PHQ-9 Depression Total Score: 9 06/25/2020 7:04 AM JINRIKSHA DRIVER documented as of this encounter Care Teams Repair Electric Motor Assembler Relationship Specialty Start Date End Date Marija Edgar APRN PCP - General Nurse Practitioner 04/30/20 MANAGER PEOPLE [address] [place], [place] [phone] Lita Oseguera Personal Advocate & 02/28/20 Liaison (PAL) Chanelle Mccann Assigned OBGYN Provider 05/02/20 05/09/21 ARLENE Mooney [facility] [address] [address] 200 [place], [place] [address] Kyara De La Fuente, VJ Specialty Care Neurology 06/04/20 03/05/21 Coordinator Marija Edgar APRN Assigned PCP 06/08/20 MANAGER PEOPLE [address] [place] [address] Mynor Broussard MD Assigned Surgical 06/01/20 11/28/21 [address] [facility] Provider 500 [place], [place] [address] Mauri, Melody Neuroscience 06/04/20 MD Keisha Provider 909 [place], [place] [address] documented as of this encounter
--- OUTSIDE RECORDS SUMMARY | 2022-04-28 01:21 | XMS_ITS | Encounter Summary ---
:2000 Author Organization [facility] Address [address] [place] [address] Care Team Providers Name Role Phone Lita Oseguera Unavailable Unavailable Marija Edgar APRN CREDIT AND LOAN COLLECTIONS SUPERVISOR Primary Care Provider [phone] Chanelle Mccann APRN CNM Unavailable + Kyara De La Fuente RN Unavailable Marija Edgar APRN CREDIT AND LOAN COLLECTIONS SUPERVISOR Unavailable Mynor Broussard MD Unavailable Keisha Dotson MD Unavailable Mary Mejia Unavailable Unavailable Stacey Briones JOINER Unavailable Lesley Moody MA Unavailable Mary Mejia Unavailable Unavailable Lita Oseguera Unavailable Unavailable Galo Burrell MD Unavailable Cristina Wood Unavailable Unavailable Lesley Moody MA Unavailable Meredith Bedoya Unavailable Unavailable Cristina Wood Unavailable Unavailable Diana Desir [facility] Unavailable Rain Galaviz PA-C Unavailable Summer Lara MD Unavailable Summer Lara MD Unavailable Summer Lara MD Unavailable Tavia Wyatt MD Unavailable Unavailable Encounter Details Date Type Department Care Team Description 08/03/2020 Medical Correspondence [facility] Scan, [facility] Info Mgmt Non-Provider POST- Srvcs DEPRESSION SCALE [address] [place] [address] WELL-CHILD VISITS [phone] Social History Tobacco Use Types Packs/Day Years [...] How often do you attend congregational or quaker services? Never 09/22/2021 Do you [...] slept in a long term (including now)? Sex Assigned at Date Recorded Female 03/02/2021 5:45 PM CDT COVID-19 Exposure Response Date Recorded In the last month, have you been in contact with No / Unsure 08/21/2021 6:39 PM RIVERBOAT CAPTAIN someone who was confirmed or suspected to have Coronavirus / COVID-19? documented as of this encounter Plan of Treatment Upcoming Encounters Date Type Specialty Care Team Description 04/28/2022 Office Visit Family Practice Anthony Doe PA-C [address] [place], [place] [phone] (Wo rk) 05/03/2022 Office Visit Dermatology Neil Kent M D [address] [place] [phone] (Wo rk) 05/05/2022 Office Visit Optometry Yeny David, OD [address] [facility] [address] [place] [phone] (Wo rk) 05/11/2022 Virtual Visit Pharm D Diana Desir , [facility] [address] [place], [place] [address] (Wo rk) 05/14/2022 Office Visit Cardiology Livan Sharif MD [address] [facility] [address] [place], [place] [address] (Wo rk) 05/31/2022 Office Visit [facility] Valery Veronica PA-C 909 [place], [place] [address] (Wo rk) documented as of this encounter Visit Diagnoses Not on filedocumented in this encounter Additional Health Concerns Infection Onset Date Last Indicated Resolved Time Rule Out COVID-19 08/30/2020 08/30/2020 08/30/2020 5:0 5 PM RIVERBOAT CAPTAIN Rule Out COVID-19 09/24/2020 09/24/2020 09/24/2020 9:2 4 AM CDT Rule Out COVID-19 11/05/2020 11/05/2020 11/06/2020 1:0 9 PM CDT Rule Out COVID-19 05/11/2021 05/11/2021 05/13/2021 10: 18 AM CDT Rule Out COVID-19 07/13/2021 07/13/2021 07/14/2021 3:0 4 PM RIVERBOAT CAPTAIN Rule Out COVID-19 07/18/2021 07/18/2021 07/20/2021 1:5 6 PM RIVERBOAT CAPTAIN COVID-19 07/18/2021 07/18/2021 08/08/2021 11:39 PM RIVERBOAT CAPTAIN Assessment Noted Time PHQ-9 Depression Total Score: 9 06/25/2020 7:04 AM RIVERBOAT CAPTAIN documented as of this encounter Care Teams Sausage Stringer Relationship Specialty Start Date End Date Marija Edgar APRN PCP - General Nurse Practitioner 04/30/20 CREDIT AND LOAN COLLECTIONS SUPERVISOR [address] [place], [place] [phone] Lita Oseguera Personal Advocate & 02/28/20 Liaison (PAL) Chanelle Mccann Assigned OBGYN Provider 05/02/20 05/09/21 [place] [address] [address] [facility] 200 [place], [place] [address] Kyara De La Fuente, VJ Specialty Care Neurology 06/04/20 03/05/21 Coordinator Marija Edgar APRN Assigned PCP 06/08/20 CREDIT AND LOAN COLLECTIONS SUPERVISOR [address] [place], [place] [phone] Mynor Broussard MD Assigned Surgical 06/01/20 11/28/21 6363 [facility] Provider 500 [place] [address] Keisha Dotson, Assigned Neuroscience 06/04/20 Provider 909 [place], [place] [address] Mary Mejia Financial Resource 08/07/2008/11 Worker Stacey Briones, [facility] Lead Senior Field Engineer Primary Care - CC 08/11/20 12/30/20 Lesley Moody, Community Health Worker 08/11/20 10/01/20 MD Mary Mejia Financial Resource 09/02/2009/09 Worker Lita Oseguera Personal Advocate & Family Medicine 09/10/20 09/21/20 Liaison (PAL) Galo Burrell MD Assigned Heart and 10/05/20 04/02/22 6[address] [facility] [address] Vascular Provider ENMA GUERRERO 688325 Cristina Wood Financial Resource 10/07/20 10/14/20 Worker Lesley Moody, Community Health Worker 10/23/20 12/30/20 MD Meredith Bedoya Financial Resource 10/23/20 11/23/20 Worker Cristina Wood Financial Resource 02/09/21 02/09/21 Worker Diana Desir [facility] Pharmacist Pharmacist 04/17/21 30[address] [place], [place] [address] Rain Galaviz Physician Courtroom Reporter Dermatology 04/28/21 ROVERTO Paredes [address] [facility] [address] [facility] [place] [phone] Summer Lara MD Assigned OBGYN Provider 05/10/21 05/23/[address] [place], [place] [phone] Summer Lara MD Assigned OBGYN Provider 05/31/21 03/12/[address] [place], [place] [phone] Summer Lara MD Assigned OBGYN Provider 05/24/21 05/30/[address] [place] [address] Tavia Wyatt MD MD Dermatology 07/14/21 documented as of this encounter
--- OUTSIDE RECORDS SUMMARY | 2022-04-28 01:21 | XMS_ITS | Encounter Summary ---
:2000 Author Organization [facility] Address [address] [place] [address]. [place] [address] Care Team Providers Name Role Phone Lita Oesguera Unavailable Unavailable Marija Edgar APRN, CNP Primary Care Provider [phone] Chanelle Mccann APRN CNM Unavailable + Kyara De La Fuente RN Unavailable Marija Edgar APRN CEMENT MASON MAINTENANCE Unavailable Mynor Broussard MD Unavailable Keisha Dotson MD Unavailable Reason for Referral Care Coordination (Routine) - Closed Specialty Diagnoses / Procedures Referred By Contact Refer red To Contact Diagnoses Other specified counseling [facility]h Care Coordination 2450 [place], [place] [phone] Referral ID Status Reason Start Date Expiration Date Visits Requ ested Visits Authorized [id number] Closed 07/31/2020 07/31/2021 1 1 AL NURSE Encounter Details Date Type Department Care Team Description 07/31/2020 Orders Only [facility] Care Marija Edgar O ther specified Coordination GENERAL OFFICE CLERK CEMENT MASON MAINTENANCE counseling [address] [facility] [address] [place] [id number] Social History Tobacco Use Types Packs/Day Years [...] week 09/22/2021 How often do you attend congregation or sikh services? Never 09/22/2021 Do you belong to any clubs or organizations such as No 09/22/2021 congregation groups, unions, fraternal or athletic groups, or [...] or slept in a correction (including now)? Sex Assigned at Date Recorded Female 03/02/2021 5:45 PM CDT COVID-19 Exposure Response Date Recorded In the last month, have you been in contact with No / Unsure 07/30/2020 4:53 PM DENTAL NURSE someone who was confirmed or suspected to have Coronavirus / COVID-19? documented as of this encounter Plan of Treatment Upcoming Encounters Date Type Specialty Care Team Description 04/28/2022 Office Visit Family Practice Anthony Doe PA-C [address] [place] [address] (Wo rk) 05/03/2022 Office Visit Dermatology Neil Kent M D 500 [place], [place] [address]655 (Wo rk) 05/05/2022 Office Visit Optometry Yeny David, OD [address] [facility] [address] [place] [phone] (Wo rk) 05/11/2022 Virtual Visit Pharm D Diana Desir , [facility] [address] [place], [place] [address] (Wo rk) 05/14/2022 Office Visit Cardiology Livan Sharif MD 25[address] [facility] [address] [place], [place] [address] (Wo rk) 05/31/2022 Office Visit Family Practice Valery Veronica , PA-C 909 [place], [place] [address]485 (Wo rk) Scheduled Referrals Name Type Priority Associated Diagnoses Order S chedule Referral to CC - CHW Referral Routine Other specified coun seling Ordered: 07/31/2020 documented as of this encounter Visit Diagnoses Diagnosis Other specified counseling documented in this encounter Additional Health Concerns Assessment Noted Time PHQ-9 Depression Total Score: 9 06/25/2020 7:04 AM DENTAL NURSE documented as of this encounter Care Teams Personal Insurance Advisor Relationship Specialty Start Date End Date Marija Edgar APRN PCP - General Nurse Practitioner 04/30/20 CEMENT MASON MAINTENANCE [address] [place] [address] Lita Oseguera Personal Advocate & 02/28/20 Liaison (PAL) Chanelle Mccann Assigned OBGYN Provider 05/02/20 05/09/21 [place] [address] [address] 200 [place], [place] [address] Kyara De La Fuente, VJ Specialty Care Neurology 06/04/20 03/05/21 Coordinator Marija Edgar APRN Assigned PCP 06/08/20 CEMENT MASON MAINTENANCE [address] [place] [address] Mynor Broussard MD Assigned Surgical 06/01/20 11/28/21 [address] [facility] Provider 500 [place], [place] [address] Melody Dotson Neuroscience 06/04/20 MD Keisha Provider 909 [place] [address] documented as of this encounter
--- OUTSIDE RECORDS SUMMARY | 2022-04-28 01:21 | XMS_ITS | Encounter Summary ---
:2000 Author Organization [facility] Address [address] [place] [address] Care Team Providers Name Role Phone Lita Oseguera Unavailable Unavailable Marija Edgar APRN STONE HAND Primary Care Provider [phone] Chanelle Mccann APRN CNM Unavailable + Kyara De La Fuente RN Unavailable Marija Edgar APRN STONE HAND Unavailable Mynor Broussard MD Unavailable Keisha Dotson MD Unavailable Encounter Details Date Type Department Care Team Description 06/23/2020 [facility] Care Mauri, Seizure disorder (H) [address] [place] [address] [phone] Social History Tobacco Use Types Packs/Day Years [...] How often do you attend pentecostalism or gnosticist services? Never 09/22/2021 Do you [...] a [place] [facility] (including now)? Sex Assigned at Date Recorded Female 03/02/2021 5:45 PM CDT COVID-19 Exposure Response Date Recorded In the last month, have you been in contact with No / Unsure 06/24/2020 3:01 PM CIVIL ENGINEERING DESIGN DRAFTSPERSON someone who was confirmed or suspected to have Coronavirus / COVID-19? documented as of this encounter Progress Notes Luann David MA - 06/23/2020 1:00 PM CST Left messages to call back for rooming process when available before video appointment today. L ENGINEERING DESIGN DRAFTSPERSON documented in this encounter Plan of Treatment Upcoming Encounters Date Type Specialty Care Team Description 04/28/2022 Office Visit Family Practice Anthony Doe PA-C [address] [place] [address] (Wo rk) 05/03/2022 Office Visit Dermatology Neil Kent M D 500 [place] [address] (Wo rk) 05/05/2022 Office Visit Optometry Yeny David, OD [address] [facility] [place] [phone] (Wo rk) 05/11/2022 Virtual Visit Pharm D iDana Desir , [facility] [address] [place], [place] [address] (Wo rk) 05/14/2022 Office Visit Cardiology Livan Sharif MD [address] [facility] [address] [place], [place] [address] (Wo rk) 05/31/2022 Office Visit Family Practice Valery Veronica PAUcheC 909 [place], [place] [address] (Wo rk) documented as of this encounter Visit Diagnoses Diagnosis Seizure disorder (H) Unspecified epilepsy without mention of intractable epilepsy documented in this encounter Additional Health Concerns Assessment Noted Time PHQ-9 Depression Total Score: 9 06/04/2020 10:35 AM CS T documented as of this encounter Care Teams Body Finisher Relationship Specialty Start Date End Date Marija Edgar APRN PCP - General Nurse Practitioner 04/30/20 STONE HAND [address] [place], [place] [phone] Lita Oseguera Personal Advocate & 02/28/20 Liaison (PAL) Chanelle Mccann Assigned OBGYN Provider 05/02/20 05/09/21 [place] [address] [address] 200 [place] [address] Kyara De La Fuente, VJ Specialty Care Neurology 06/04/20 03/05/21 Coordinator Marija Edgar APRN Assigned PCP 06/08/20 STONE HAND [address] [place] [address] Mynor Broussard MD Assigned Surgical 06/01/20 11/28/21 [address] [facility] Provider 500 [place], [place] [address] Mauri, Melody Neuroscience 06/04/20 MD Keisha Provider 9 [place], [place] [address] documented as of this encounter
--- OUTSIDE RECORDS SUMMARY | 2022-04-28 01:21 | XMS_ITS | Encounter Summary ---
:2000 Author Organization [facility] Address [address] [place] [address] Care Team Providers Name Role Phone OumarLita neri Unavailable Unavailable Marija Edgar APRN LATEX RIBBON 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 Primary Care Provider [phone] Chanlele Mccann APRN CNM Unavailable + Kyara De La Fuente RN Unavailable Marija Edgar APRN LATEX RIBBON 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 Unavailable Mynor Broussard MD Unavailable Keisha Dotson MD Unavailable Encounter Details Date Type Department Care Team Description 06/23/2020 Travel Social History Tobacco Use Types Packs/Day [...] How often do you attend muslim or islam services? Never 09/22/2021 Do you [...] you been in contact Unable to assess 06/23/2020 12:28 PM TOOL AND DIE SUPERVISOR with someone who was confirmed or suspected to have Coronavirus / COVID-19? documented as of this encounter Plan of Treatment Upcoming Encounters Date Type Specialty Care Team Description 04/28/2022 Office Visit Family Practice Anthony Doe, ROVERTO [address] [place], [place] [phone] (Wo rk) 05/03/2022 Office Visit Dermatology Neil Kent M D 500 [place], [place] [phone] (Wo rk) 05/05/2022 Office Visit Optometry Yeny David, OD [address] [facility] [address] [place] [phone] (Wo rk) 05/11/2022 Virtual Visit Pharm D Diana Desir , [facility] [address] [place], [place] [address] (Wo rk) 05/14/2022 Office Visit Cardiology Livan Sharif MD [address], [place] [address] [place] [address] (Wo rk) 05/31/2022 Office Visit Family Practice Valery Veronica PA-C 909 [place] [address] (Wo rk) documented as of this encounter Visit Diagnoses Not on filedocumented in this encounter Additional Health Concerns Assessment Noted Time PHQ-9 Depression Total Score: 9 06/04/2020 10:35 AM CS T documented as of this encounter Care Teams Wardrobe Coordinator Relationship Specialty Start Date End Date Marija Edgar APRN PCP - General Nurse Practitioner 04/30/20 LATEX RIBBON 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 [address] [place], [place] [phone] Lita Oseguera Personal Advocate & 02/28/20 Liaison (PAL) Chanelle Mccann Assigned OBGYN Provider 05/02/20 05/09/21 [place] [address] [address] [facility] 200 [place] [address] Kyara De La Fuente, VJ Specialty Care Neurology 06/04/20 03/05/21 Coordinator Marija Edgar APRN Assigned PCP 06/08/20 LATEX RIBBON 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 [address] [place], [place] [phone] Mynor Broussard MD Assigned Surgical 06/01/20 11/28/21 [address] [facility] Provider 500 [place] [address] Mauri Assigned Neuroscience 06/04/20 MD Keisha Provider [address] [place] [address] documented as of this encounter
--- OUTSIDE RECORDS SUMMARY | 2022-04-28 01:21 | XMS_ITS | Encounter Summary ---
:2000 Author Organization [facility] Address [address] [place] [address] Care Team Providers Name Role Phone Lita Oseguera Unavailable Unavailable Marija Edgar APRN MARINE ENGINEERING TEACHER Primary Care Provider [phone] Chanelle Mccann APRN CNM Unavailable + Kyara De La Fuente RN Unavailable Marija Edgar APRN MARINE ENGINEERING TEACHER Unavailable Mynor Broussard MD Unavailable Keisha Dotson MD Unavailable Reason for Referral CV Testing (Routine) - Closed Specialty Diagnoses / Procedures Referred By Contact Refer red To Contact Cardiology Diagnoses Palpitations Joao Rehman MD Rh Cv Cardiac Svc [facility] Procedures Leadless forestry extension specialist 8 to 14 Days ZZHC EXT ECG > 48HR TO 21 DAY RCRD W/CONECT INTL RCRD ZZC EXT ECG > 48HR TO 21 DAY [facility] [place] [address] [facility] [address] [place], [place] [phone] Fax: Referral ID Status Reason Start Date Expiration Date Visits Requ ested Visits Authorized [id number] Closed 07/30/2020 07/30/2021 1 1 ATIONS MANAGER ASSISTANT Reason for Visit CV Testing (Routine) - Closed Specialty Diagnoses / Procedures Referred By Contact Refer red To Contact Cardiology Diagnoses Palpitations Joao Rehmna MD Rh Cv Cardiac Svc [facility] Procedures Leadless forestry extension specialist 8 to 14 Days ZZHC EXT ECG > 48HR TO 21 DAY RCRD W/CONECT INTL RCRD ZZC EXT ECG > 48HR TO 21 DAY [facility] [address] [place], [place] [phone] Fax: Referral ID Status Reason Start Date Expiration Date Visits Requ ested Visits Authorized [id number] Closed 07/30/2020 07/30/2021 1 1 Encounter Details Date Type Department Care Team Description 08/05/2020 Hospital Encounter [facility] Joao Rehman MD [facility] [place] [address] [place] [phone] Social History Tobacco Use Types Packs/Day Years [...] How often do you attend mosque or uatsdin services? Never 09/22/2021 Do you [...] with No / Unsure 08/05/2020 9:35 AM OPERATIONS MANAGER ASSISTANT someone who was confirmed or suspected to [...] documented as of this encounter Progress Notes Stephanie Parmary - 08/05/2020 9:51 AM CST Ziopatch was applied for 7 days. Written and verbal instructions were given. ATIONS MANAGER ASSISTANT documented in this encounter Plan of Treatment Upcoming Encounters Date Type Specialty Care Team Description 04/28/2022 Office Visit Family Practice Anthony Doe, PAUcheC [address] [place] [address] (Wo rk) 05/03/2022 Office Visit Dermatology Neil Kent M D 500 [place] [address] (Wo rk) 05/05/2022 Office Visit Optometry Yeny David, OD [address] [facility] [place] [address] (Wo rk) 05/11/2022 Virtual Visit Pharm D Diana Desir , [facility] [address] [place], [place] [address] (Wo rk) 05/14/2022 Office Visit Cardiology Livan Sharif MD [address], [address] [address] [place], [place] [address] (Wo rk) 05/31/2022 Office Visit Family Practice Valery Veronica , PAUcheC 909 [place] [address] (Wo rk) documented as of this encounter Procedures Procedure Name Priority Date/Time Associated Diagnosis Comme nts LEADLESS GUEST EXPERIENCE REPRESENTATIVE LISA 08/05/2020 9:50 AM OPERATIONS MANAGER ASSISTANT Palpitatio ns APPLICATION AND INTERP 8 TO 14 DAYS documented in this encounter Results LEADLESS GUEST EXPERIENCE REPRESENTATIVE APPLICATION AND INTERP 8 TO 14 DAYS (08/05/2020 9:50 AM OPERATIONS MANAGER ASSISTANT) Anatomical Region Laterality Modality Other Specimen (Source) Anatomical Location Collection Method / Collectio n Time Received Time / Laterality Volume Narrative This result has an attachment that is no t available. Joao Rehman MD CV CARDIAC SERVICES ORDERABL ES documented in this encounter Visit Diagnoses Diagnosis Palpitations documented in this encounter Additional Health Concerns Assessment Noted Time PHQ-9 Depression Total Score: 9 06/25/2020 7:04 AM OPERATIONS MANAGER ASSISTANT documented as of this encounter Care Teams Caterpillar Mechanic Relationship Specialty Start Date End Date Marija Edgar APRN PCP - General Nurse Practitioner 04/30/20 MARINE ENGINEERING TEACHER [address] [place], [place] [phone] Lita Oseguera Personal Advocate & 02/28/20 Liaison (PAL) Chanelle Mccann Assigned OBGYN Provider 05/02/20 05/09/21 [place] [address] [address] [facility] 200 [place], [place] [address] Kyara De La Fuente RN Specialty Care Neurology 06/04/20 03/05/21 Coordinator Marija Edgar APRN Assigned PCP 06/08/20 MARINE ENGINEERING TEACHER [address] [place], [place] [phone] Mynor Broussard MD Assigned Surgical 06/01/20 11/28/21 [address] [facility] Provider 500 [place], [place] [address] Mauri, Melody Neuroscience 06/04/20 MD Keisha Provider [address] [place], [place] [address] documented as of this encounter
--- OUTSIDE RECORDS SUMMARY | 2022-04-28 01:22 | XMS_ITS | Encounter Summary ---
:2000 Author Organization [facility] Address [address] [place] [address]. [place] [address] Care Team Providers Name Role Phone Lita Oseguera Unavailable Unavailable Rakesh Cid PA-C Unavailable [phone] Marija Edgar APRN TABLE SETTER Primary Care Provider [phone] Chanelle Mccann DIRECTOR OF CATH LAB CNM Unavailable + Lesley Moody MA Unavailable Reason for Visit Auth/Cert Specialty Diagnoses / Procedures Referred By Contact Refer red To Contact Surgery Diagnoses Right ureteral stone Left ureteral stone Right ureteral stone [N20.1] Left ureteral stone [N20.1] Sh Periop Services Procedures HC CYSTO/URETERO W/LITHOTRIPSY &INDWELL STENT INSRT HC UROGRAPHY, RETROGRADE W/WO KUB CYSTOSCOPY, BILATERAL RETROGRADE PYELOGRAM, BILATERAL URETEROSCOPY WITH LASER LITHOTRIPSY AND BASKET [address], [address] REMOVAL OF STONES, BILATERAL URETERAL STENT PLAC EMENT [address] [place] [address] Phone: Referral ID Status Reason Start Date Expiration Date Visits Requ ested Visits Authorized [id number] 1 1 Encounter Details Date Type Department Care Team Description 05/30/2020 Anesthesia Event M [facility] Bam Valencia MD [facility] [address] [address] Vasiliy Nuñez OR Jan Luna APRN [facility] [address] [id number] [phone] Anesthesia Record Procedure Summary Procedure Name Responsible Anesthesia Start Anesthesia Stop Anesthesiologist Time Time CYSTOSCOPY, BILATERAL RETROGRADE PYELOGRAM, BILATERAL URETEROSCOPY WITH LASER LITHOTRIPSY AND BASKET REMOVAL OF STONES, BILATERAL URETERAL STENT PLACEMENT (canceled) Events Date Time Event Comment 05/30/2020 0642 Name Total ceFAZolin (ANCEF) intermittent infusion 2 g in 100 mL dextrose PRE-MIX 0 g Agents No agents on file. Blood No blood administrations on file. Lines, Drains, and Airways No LDAs on file. documented in this encounter Social History Tobacco [...] How often do you attend samaritan or uatsdin services? Never 09/22/2021 Do you [...] or slept in a custodial (including now)? Sex Assigned at Date Recorded Female 03/02/2021 5:45 PM CDT COVID-19 Exposure Response Date Recorded In the last month, have you been in contact with No / Unsure 06/24/2020 3:01 PM REINFORCED IRONWORKER someone who was confirmed or suspected to have Coronavirus / COVID-19? documented as of this encounter OR Notes Anesthesia Preprocedure Evaluation - Gareth Valencia MD - 05/30/2020 6:32 AM CST Anesthesia Pre-Procedure Evaluation Patient: Kim Johnson : 2000 Preoperative Diagnosis: Right ureteral stone [N20.1] Left ureteral stone [N20.1] Procedure(s): CYSTOSCOPY, BILATERAL RETROGRADE PYELOGRAM, BILATERAL URETEROSCOPY WITH LASER LITHOTRIPSY AND BASKETREMOVAL OF STONES, BILATERAL URETERAL STENT PLACEMENT Past Medical History: Diagnosis Date ??? Anxiety ??? Chronic kidney disease ??? Depressive disorder ??? Eczema ??? Gastroesophageal reflux disease ??? Seizure (H) 05/02/2019 Past Surgical History: Procedure Laterality Date ??? GENITOURINARY SURGERY No Known Allergies Social History Tobacco Use ??? Smoking status: Former Smoker Packs/day: 1.00 Types: Other Quit date: 12/07/2019 Years since quittin.4 ??? Smokeless tobacco: Never Used Substance Use Topics ??? Alcohol use: Not Currently Wt Readings from Last 1 Encounters: 05/12/20 82.6 kg (182 lb 3.2 oz) Prior to Admission medications Medication Sig Start Date End Date Taking? Authorizing Provider ferrous sulfate (FEROSUL) 325 (65 Fe) MG tablet Take 325 mg by mouth Yes Reported, Patient metroNIDAZOLE (FLAGYL) 500 MG tablet Take 1 tablet (500 mg) by mouth 2 times daily for 7 days 05/27/20 06/03/20 Yes Adolfo Brower MD omeprazole (PRILOSEC) [address] capsule Take 1 capsule (40 mg) by mouth daily 04/30/20 Yes Anthony Doe PA-C sertraline (ZOLOFT) 100 MG tablet Take 1.5 tablets (150 mg) by mouth daily 12/14/19 Yes Rakesh Cid PA-C triamcinolone (KENALOG) 0.1 % external cream Apply topically 2 times daily 05/02/19 Yes Rakesh Cid PA-C zonisamide (ZONEGRAN) 100 MG capsule Take 2 capsules (200 mg) by mouth 2 times daily Patient taking differently: Take 200 mg by mouth 2 times daily Pt has only been taking daily 05/16/20Yes Marija Edgar APRN TABLE SETTER HYDROcodone-acetaminophen (NORCO) 5-325 MG tablet Take 1 tablet by mouth every 4 hours as needed forsevere pain 05/27/20 05/30/20 Adolfo Brower MD hydrOXYzine (ATARAX) 25 MG tablet Take 1 tablet (25 mg) by mouth 3 times daily as needed for anxiety02/21/20 Rakesh Cid PA-C naproxen (NAPROSYN) 500 MG tablet Take 500 mg by mouth 04/12/16 Reported, Patient norethindrone (MICRONOR) 0.35 MG tablet Take 1 tablet (0.35 mg) by mouth daily 11/05/19 Chanelle Mccann APRN CNM ondansetron (ZOFRAN ODT) 4 MG ODT tab Take 1 tablet (4 mg) by mouth every 6 hours as needed for nausea 05/27/20 05/30/20 Adolfo Brower MD propranolol (INDERAL) 20 MG tablet Take 1 tablet (20 mg) by mouth 3 times daily as needed (palpitations, anxiety) 12/14/19 Rakesh Cid PA-C tiZANidine (ZANAFLEX) 4 MG tablet Take 1 tablet (4 mg) by mouth nightly as needed for muscle spasms 05/17/19 Rakesh Cid PA-C Current Facility-Administered Medications Ordered in Epic Medication Dose Route Frequency Last Rate Last Admin ??? ceFAZolin (ANCEF) 1 g vial to attach to NS 100 ml bag for ADULT or 50 ml bag for PEDS 1 g Intravenous See Admin Instructions ??? ceFAZolin (ANCEF) intermittent infusion 2 g in 100 mL dextrose PRE-MIX 2 g Intravenous Pre-Op/Pre-procedure x 1 dose No current [facility]-ordered outpatient medications on file. Recent Labs Lab Test 05/26/20 2356 04/30/20 1613 NA 140 140 POTASSIUM 3.9 3.9 CHLORIDE 110* 109 CO2 24 24 ANIONGAP 6 7 GLC 104* 80 BUN 9 12 CR 0.74 0.74 CECILLE 8.4* 9.5 Recent Labs Lab Test 05/26/20 2356 04/30/20 1613 WBC 8.5 7.0 HGB 12.0 12.1 PLT 232 239 No results for input(s): ABO, RH in the last 46745 hours. Recent Labs Lab Test 03/26/20 2033 09/29/18 0123 05/11/18 0521 TROPI <0.015 <0.015 <0.015 No results for input(s): PH, PCO2, PO2, HCO3 in the last 88604 hours. Recent Labs Lab Test 05/30/20 0540 HCG Positive* Recent Results (from the past 744 hour(s)) CT Abdomen Pelvis w Contrast Narrative EXAM: CT ABDOMEN PELVIS W CONTRAST LOCATION: [facility] DATE/TIME: 05/27/2020 12:32 AM INDICATION: 20-year-old female with history of anxiety and depression, gastroesophageal reflux, chronic kidney disease, 3 days of intermittent sharp nonradiating left-sided flank pain. Pain worsens with urination COMPARISON: None. TECHNIQUE: CT scan of the abdomen and pelvis was performed following injection of IV contrast. Multiplanar reformats were obtained. Dose reduction techniques were used. CONTRAST: 92mL Isovue-370 FINDINGS: LOWER CHEST: Unremarkable HEPATOBILIARY: Unremarkable PANCREAS: Unremarkable SPLEEN: Unremarkable ADRENAL GLANDS: Unremarkable KIDNEYS/BLADDER: Minimal prominence of the left renal collecting system without hydroureter.. Large calculus at the level of the left ureterovesical junction measuring 12 mm. 9 mm calculus at the levelof the right ureterovesical junction. Additional probable 2 to 3 mm calculus slightly in the distal right ureter.. There are several small pelvic phleboliths. BOWEL: No bowel obstruction. Normal appendix. Stomach is quite distended. LYMPH NODES: No significant retroperitoneal adenopathy. VASCULATURE: No abdominal aortic aneurysm PELVIC ORGANS: Involuting right ovarian cyst/corpus luteum measuring 1.9 cm. Moderate volume of freepelvic fluid. MUSCULOSKELETAL: No acute bony abnormalities. Impression IMPRESSION: 1. Large nonobstructing calculi at the level of the ureterovesical junction bilaterally. Given theirsize/location and lack of significant obstruction, this does raise the possibility of ureteroceles. 2. Moderate free pelvic fluid. US Pelvic Complete with Transvaginal Narrative EXAM: US PELVIC COMPLETE WITH TRANSVAGINAL LOCATION: [facility] DATE/TIME: 05/27/2020 1:56 AM INDICATION: Left lower quadrant and pelvic pain with left flank pain. Abnormal CT demonstrating freefluid deep within the pelvis. COMPARISON: CT 05/27/2020. TECHNIQUE: Transabdominal scans were performed. Endovaginal ultrasound was performed to better visualize the adnexa. FINDINGS: UTERUS: 6.1 x 4.1 x 4.4 cm. Normal in size and position with no masses. ENDOMETRIUM: 13 mm. Normal smooth endometrium. RIGHT OVARY: 2.9 x 2.2 x 2.2 cm. Collapsing 0.9 x 1.0 x 0.9 cm cyst most compatible with a collapsing corpus luteal cyst. Color Doppler imaging demonstrates flow to the right ovary. LEFT OVARY: 1.8 x 1.1 x 1.1 cm. Normal with flow demonstrated. Minimal to moderate free fluid in the pelvis and surrounding the right adnexa. Impression IMPRESSION: 1. Minimal to moderate free fluid in the pelvis and in the right adnexa. This surrounds a collapsingcyst measuring 0.9 x 1.0 x 0.9 cm compatible with a collapsing corpus luteal cyst. 2. Flow present to both ovaries on color Doppler imaging. 3. Uterus and endometrium unremarkable. No results found for this or any previous visit (from the past 4320 hour(s)). RECENT LABS: Anesthesia Evaluation . ROS/MED HX ENT/Pulmonary: (+)tobacco use, Past use , . . Neurologic: Comment: H/o seizures Cardiovascular: - neg cardiovascular ROS METS/Exercise Tolerance: >4 METS Hematologic: Musculoskeletal: (+) other musculoskeletal- eczema GI/Hepatic: (+) GERD Renal/Genitourinary: (+) chronic renal disease, type: CRI, Endo: - neg endo ROS Psychiatric: (+) psychiatric history anxiety and depression Infectious Disease: - neg infectious disease ROS Malignancy: Other: (+) Possibly Physical Exam Normal systems: dental Airway Mallampati: I TM distance: >3 FB Neck ROM: full Dental Cardiovascular Rhythm and rate: regular and normal Pulmonary Lab Results Component Value Date WBC 8.5 05/26/2020 HGB 12.0 05/26/2020 HCT 37.9 05/26/2020 PLT 232 05/26/2020 CRP 42.1 (H) 02/04/2008 SED 42 (H) 04/19/2007 NA 140 05/26/2020 POTASSIUM 3.9 05/26/2020 CHLORIDE 110 (H) 05/26/2020 CO2 24 05/26/2020 BUN 9 05/26/2020 CR 0.74 05/26/2020 GLC 104 (H) 05/26/2020 CECILLE 8.4 (L) 05/26/2020 ALBUMIN 3.9 03/27/2020 PROTTOTAL 7.6 03/27/2020 ALT 25 03/27/2020 AST 11 03/27/2020 ALKPHOS 53 03/27/2020 BILITOTAL 0.3 03/27/2020 LIPASE 135 03/27/2020 AMYLASE 47 03/27/2020 TSH 1.97 12/14/2019 HCG Positive (A) 05/30/2020 HCGS Negative 05/11/2018 Preop Vitals BP Readings from Last 3 Encounters: 05/27/20 122/73 05/12/20 121/66 04/30/20 112/65 Pulse Readings from Last 3 Encounters: 05/27/20 103 05/12/20 73 04/30/20 87 Resp Readings from Last 3 Encounters: 05/26/20 20 05/12/20 21 04/30/20 19 SpO2 Readings from Last 3 Encounters: 05/27/20 99% 05/12/20 99% 04/30/20 100% Temp Readings from Last 1 Encounters: 05/26/20 36.9 ??C (98.4 ??F) (Oral) Ht Readings from Last 1 Encounters: 05/12/20 1.651 m (5' 5) Wt Readings from Last 1 Encounters: 05/12/20 82.6 kg (182 lb 3.2 oz) Estimated body mass index is 30.32 kg/m?? as calculated from the following: Height as of 05/12/20: 1.651 m (5' 5). Weight as of 05/12/20: 82.6 kg (182 lb 3.2 oz). Anesthesia Plan History & Physical Review ASA Status: 2 . NPO Status: > 8 hours Postoperative Care Consents Gareth Valencia MD FORCED IRONWORKER documented in this encounter Plan of Treatment Upcoming Encounters Date Type Specialty Care Team Description 04/28/2022 Office Visit Family [facility] Anthony Doe, PAUcheC [address] [place] [address] (Wo rk) 05/03/2022 Office Visit Dermatology Neil Kent M D [address] [place], [place] [address] (Wo rk) 05/05/2022 Office Visit Optometry Yeny David, OD [address] [place], [place] [id number] (Wo rk) 05/11/2022 Virtual Visit Pharm D Diana Desir , [facility] [address] [place], [place] [address] (Wo rk) 05/14/2022 Office Visit Cardiology Livan Sharif MD [address] [facility] [address] [place] [address] (Wo rk) 05/31/2022 Office Visit Family [facility] Valery Veronica PAUcheC [address] [place], [place] [address] (Wo rk) documented as of this encounter Visit Diagnoses Not on filedocumented in this encounter Additional Health Concerns Assessment Noted Time PHQ-9 Depression Total Score: 6 08/28/2020 7:05 AM REINFORCED IRONWORKER documented as of this encounter Care Teams Air And Hydronic Balancing Technician Relationship Specialty Start Date End Date Marija Edgar APRN PCP - General Nurse Practitioner 04/30/20 TABLE SETTER [address] [place] [address] Lita Oseguera Personal Advocate & 02/28/20 Liaison (PAL) Rakesh Cid Assigned PCP 03/02/20 06/07/20 ROVERTO [address] [address] [place], [place] [phone] Chanelle Mccann Assigned OBGYN Provider 05/02/20 05/09/21 ARLENE Mooney [facility] [address] [address] [address] [place], [place] [phone] Lesley Moody, Community Health Worker 05/30/20 06/08/20 JOSE ALBERTO documented as of this encounter
--- OUTSIDE RECORDS SUMMARY | 2022-04-28 01:22 | XMS_ITS | Encounter Summary ---
:2000 Author Organization [facility] Address [address] [place] [address]. [place] [address] Care Team Providers Name Role Phone Lita Oseguera Unavailable Unavailable Rakesh Cid PA-C Unavailable [phone] Marija Edgar APRN MOLASSES PREPARER Primary Care Provider [phone] Chanelle Mccann [facility] RUBBER GOODS INSPECTOR CNM Unavailable + Lesley Moody MA Unavailable Kyara De La Fuente RN Unavailable Marija Edgar APRN MOLASSES PREPARER Unavailable Mynor Broussard MD Unavailable Keisha Dotson MD Unavailable Reason for Visit Reason Onset Date Comments Call Back 05/27/2020 Following Up After E D Visit Encounter Details Date Type Department Care Team Description 05/27/2020 Telephone [facility] Mynor Broussard MD Call Back (Following Up Urology Clinic Dee [address] After ED Visit) [address] [place] [address] [place] [phone] Social History Tobacco Use Types Packs/Day Years [...] How often do you attend yarsani or church services? Never 09/22/2021 Do you belong to [...] with No / Unsure 06/04/2020 10:30 AM SPECIAL 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 someone who was confirmed or suspected to have Coronavirus / COVID-19? documented as of this encounter Miscellaneous Notes Telephone Encounter - Caesar Contreras CMA - 05/27/2020 12:29 PM CST ALEX for pt to call back. Carlos Contreras CMA IAL 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 Telephone Encounter - Yuliana Raman - 05/27/2020 11:48 AM CST [facility] Phone Message May a detailed message be left on voicemail: yes Reason for Call: Other: Kim calling to request a call back with Dr. Broussard's care team. Kim was in the ED yesterday (05/26/20), and she was told to call Dr. Broussard to discuss labs and imaging that were done. Kim has two kidney stones that are in weird spots. Per discharge notes, Kim was told to call Dr. Broussard in a day to go over this with him. Please give Kim a call back at your earliest convenience to discuss. Action Taken: Message routed to: Other: UA [facility]ro Travel Screening: Not Applicable IAL 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 documented in this encounter Plan of Treatment Upcoming Encounters Date Type Specialty Care Team Description 04/28/2022 Office Visit Family [facility] Anthony Doe, PAUcheC [address] [place], [place] [phone] (Wo rk) 05/03/2022 Office Visit Dermatology Neil Kent M D [address] [place] [address] (Wo rk) 05/05/2022 Office Visit Optometry Yeny David, OD [address] [facility] [place] [address] (Wo rk) 05/11/2022 Virtual Visit Pharm D Diana Desir , [facility] [address] [place], [place] [address] (Wo rk) 05/14/2022 Office Visit Cardiology Livan Sharif MD [address] [place], [place] [address] (Wo rk) 05/31/2022 Office Visit Family [facility] Valery Veronica , PAUcheC [address] [place], [place] [address] (Wo rk) documented as of this encounter Visit Diagnoses Not on filedocumented in this encounter Additional Health Concerns Assessment Noted Time PHQ-9 Depression Total Score: 6 08/28/2020 7:05 AM SPECIAL 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 documented as of this encounter Care Teams Cotton Agent Relationship Specialty Start Date End Date Marija Edgar APRN PCP - General Nurse Practitioner 04/30/20 MOLASSES PREPARER [address] [place], [place] [phone] Lita Oseguera Personal Advocate & 02/28/20 Liaison (PAL) Rakesh Cid Assigned PCP 03/02/20 06/07/20 ROVERTO [address] [address] [place], [place] [phone] Chanelle Mccann Assigned OBGYN Provider 05/02/20 05/09/21 [place] [address] [address] [address] [place], [place] [address] Lesley Moody, Community Health Worker 05/30/20 06/08/20 [place] Kyara De La Fuente, VJ Specialty Care Neurology 06/04/20 03/05/21 Coordinator Marija Edgar APRN Assigned PCP 06/08/20 MOLASSES PREPARER [address] [place], [place] [phone] Mynor Broussard MD Assigned Surgical 06/01/20 11/28/[address] [facility] Provider [address] [place] [address] Melody Dotson Neuroscience 06/04/20 MD Keisha Provider [address] [place], [place] [address] documented as of this encounter
--- OUTSIDE RECORDS SUMMARY | 2022-04-28 01:22 | XMS_ITS | Encounter Summary ---
:2000 Author Organization [facility] Address [address] [place] [address] Care Team Providers Name Role Phone Oumar Lita Unavailable Unavailable Rakesh Cid PA-C Unavailable [phone] Marija Edgar APRN BLOOMING MILL SUPERVISOR Primary Care Provider [phone] Encounter Details Date Type Department Care Team Description 04/30/2020 Travel Social History Tobacco Use Types Packs/Day [...] been in contact with No / Unsure 04/30/2020 12:45 PM CDT someone who was confirmed or suspected to have Coronavirus / COVID-19? documented as of this encounter Plan of Treatment Upcoming Encounters Date Type Specialty Care Team Description 04/28/2022 Office Visit Family Practice Anthony Doe, PAUcheC [address] [place], [place] [phone] (Wo rk) 05/03/2022 Office Visit Dermatology Neil Kent M D [address] [place], [place] [address] (Wo rk) 05/05/2022 Office Visit Optometry Yeny David, OD [address] [facility] [address] (Wo rk) 05/11/2022 Virtual Visit Pharm D Diana Desir , [facility] [address] [place], [place] [address] (Wo rk) 05/14/2022 Office Visit Cardiology Livan Sharif MD [address] [place], [place] [address] (Wo rk) 05/31/2022 Office Visit Family Practice Valery Veronica PAUcheC [address] [place], [place] [phone] (Wo rk) documented as of this encounter Visit Diagnoses Not on filedocumented in this encounter Additional Health Concerns Assessment Noted Time PHQ-9 Depression Total Score: 12 03/27/2020 2:40 PM CD T documented as of this encounter Care Teams Regulation Supervisor Relationship Specialty Start Date End Date Marija Edgar APRN PCP - General Nurse Practitioner 04/30/20 BLOOMING MILL SUPERVISOR [address] [place] [address] Lita Oseguera Personal Advocate & 02/28/20 Liaison (PAL) Rakesh Cid Assigned PCP 03/02/20 06/07/20 ROVERTO [address] [address] [place], [place] [phone] documented as of this encounter
--- OUTSIDE RECORDS SUMMARY | 2022-04-28 01:22 | XMS_ITS | Encounter Summary ---
:2000 Author Organization [facility] Address [address] [place] [address]. [place] [address] Care Team Providers Name Role Phone OumarLita neri Unavailable Unavailable Rakesh Cid PA-C Unavailable [phone] Marija Edgar APRN CYTOTECHNOLOGIST/HISTOTECHNOLOGIST Primary Care Provider [phone] Chanelle Mccann [facility] INTRANET SUPPORT CN Unavailable + Encounter Details Date Type Department Care Team Description 05/28/2020 Orders Only [facility] Mynor Broussard MD Right ureteral stone; Clinic [place] [address] Left uret eral stone Laboratory [address] [place] [address] [place] [address] [phone] Social History Tobacco Use Types Packs/Day Years [...] How often do you attend temple or yazidi services? Never 09/22/2021 Do you [...] been in contact with No / Unsure 05/28/2020 3:17 PM PSYCHIATRIC NURSE PRACTITIONER someone who was confirmed or suspected to have Coronavirus / COVID-19? documented as of this encounter Plan of Treatment Upcoming Encounters Date Type Specialty Care Team Description 04/28/2022 Office Visit Family Practice Anthony Doe, ROVERT[address] [address] [place], [place] [id number] (Wo rk) 05/03/2022 Office Visit Dermatology Neil Kent M D [address] [place], [place] [address] (Wo rk) 05/05/2022 Office Visit Optometry Yeny David, OD [address] [facility] [place] [address] (Wo rk) 05/11/2022 Virtual Visit Pharm Diana Eckert , [facility] [address] [place], [place] [address] (Jefferson carlson) 05/14/2022 Office Visit Cardiology Livan Sharif MD [address] [place] [id number] (Wo rk) 05/31/2022 Office Visit Family Practice Valery Veronica PA-C [address] [place] [address] (Wo rk) documented as of this encounter Procedures Procedure Name Priority Date/Time Associated Diagnosis Comme nts COVID-19 VIRUS STAT 05/28/2020 3:18 PM Right uretera l stone Results for this (CORONAVIRUS) BY PSYCHIATRIC NURSE PRACTITIONER Left ureteral stone proc edure are in PCR the results section. documented in this encounter Results Asymptomatic COVID-19 Virus (Coronavirus) by PCR (05/28/2020 3:18 PM PSYCHIATRIC NURSE PRACTITIONER) [facility] Method Time Signature COVID-19 Nasopharyngeal 05/28/2020 [facility] Virus PCR to 3:20 PM PSYCHIATRIC NURSE PRACTITIONER CLINICS [facility] Source COVID-19 Not Detected 05/29/2020 [facility] Virus PCR to 12:31 PM [facility] DIAGNOSTIC Result LABORATORY, [facility] Comment: Collection of multiple specimens from th e same patient may be necessary to detect the virus. The possibility of a f alse negative should be considered if the patient's recent exposure or clinica l presentation suggests 2019 nCOV infection and diagnostic tests for other causes of illness are negative. Repeat testing may be considered in this setting. Patient sample was heat inactivated and amplified using the HDPCR SARS-CoV-2 assay ([employer] The HDPCRTM PITO S-CoV-2 assay is a reverse treasury management sales consultant real-time polymerase chain reaction (qRT-PCR) test intended for the qualitative detection of nucleic aci d from SARS-CoV-2 in human nasopharyngeal swabs, oropharyngeal swabs, anterior nasal swabs, mid-turbinate nasal swabs a s well as nasal aspirate, nasal wash, and bronchoalveolar lavage (BAL) specime ns from individuals who are suspected of COVID-19 by their healthcare provider . A negative result does not rule out the presence of real-time PCR inhibitors in the specimen or COVID-19 RNA in dereck ntrations below the limit of detection of the assay. The possibility of a fals e negative should be considered if the patients recent exposure or clinical pr esentation suggests COVID-19. Additional testing or repeat testing req uires consultation with the laboratory. Nasopharyngeal specimen is the preferred choice for swab-based SARS CoV2 testing. When collection of a nasopharyn geal swab is not possible the following are acceptable alternatives: an oropharyngeal (OP) specimen collected by a healthcare professional, or a nasal mid-turbinate (NMT) swab collected by a healthcare professional or by onsite self-collection (using a flocked tapered swab), or an anterior nares specimen collected by a healthcare profe ssional or by onsite self-collection (using a round foam swab). (Centers for Disease Control) Testing performed by [facility] ([facility]) [address] [facility] [address] [facility] [address] The test performance characteristics wer e determined by [facility]. It has not been cleared or approved by the FDA. The laboratory is regulated under the Cl inical Laboratory Improvement Amendments of 1988 (CLIA-88) as qualifie d to perform high-complexity testing. This test is used for clinical purposes. It should not be regarded as investigational or for research. Specimen (Source) Anatomical Collection Method Collection Time Re ceived Time Location / / Volume Laterality Specimen from 05/28/2020 3:18 05/28/2020 nasopharyngeal PM PSYCHIATRIC NURSE PRACTITIONER 3:19 PM PSYCHIATRIC NURSE PRACTITIONER structure (specimen) Mynor Broussard MD LAB - MICRO GENERAL ORDERABL ES Performing Organization Address City/State/ZIP Code Phon e Number [facility] [place] [address] DIAGNOSTIC LABORATORY, [address] [place] [address] [address] [facility] [address] [place] [address] [phone] documented in this encounter Visit Diagnoses Diagnosis Right ureteral stone Calculus of ureter Left ureteral stone documented in this encounter Additional Health Concerns Assessment Noted Time PHQ-9 Depression Total Score: 6 08/28/2020 7:05 AM PSYCHIATRIC NURSE PRACTITIONER documented as of this encounter Care Teams Cold Working Inspector Relationship Specialty Start Date End Date Marija Edgar APRN PCP - General Nurse Practitioner 04/30/20 CYTOTECHNOLOGIST/HISTOTECHNOLOGIST [address] [place] [address] Lita Oseguera Personal Advocate & 02/28/20 Liaison (PAL) Rakesh Cid Assigned PCP 03/02/20 06/07/20 [address] [address] [place] [address] Chanelle Mccann Assigned OBGYN Provider 05/02/20 05/09/21 [place] [address] [address] [address] [place] [address] documented as of this encounter
--- OUTSIDE RECORDS SUMMARY | 2022-04-28 01:22 | XMS_ITS | Encounter Summary ---
:2000 Author Organization [facility] Address [address] [place] [address]. [place] [address] Care Team Providers Name Role Phone OumarLita neri Unavailable Unavailable Rakesh Cid PA-C Unavailable [phone] Marija Edgar APRN PACKING FLOOR WORKER Primary Care Provider [phone] Chanelle Mccann [facility] SENIOR SOLUTIONS WORKFLOW CONSULTANT CNM Unavailable + Encounter Details Date Type Department Care Team Description 05/27/2020 Prep for Procedure [facility] Mynor Broussard R ight ureteral stone (Primary Dx); Urology Clinic Dee ACEVEDO Left ureteral stone [address] [place] [address] [place] [id number] Social History Tobacco Use Types Packs/Day Years [...] How often do you attend yarsanism or samaritan services? Never 09/22/2021 Do you belong to [...] you been in contact Unable to assess 05/27/2020 1:43 PM QUICK PRINT OPERATOR with someone who was confirmed or suspected to have Coronavirus / COVID-19? documented as of this encounter Plan of Treatment Upcoming Encounters Date Type Specialty Care Team Description 04/28/2022 Office Visit Family Practice Anthony Doe, ROVERTO [address] [place], [place] [phone] (Wo rk) 05/03/2022 Office Visit Dermatology Neil Kent M D [address] [place], [place] [address] (Wo rk) 05/05/2022 Office Visit Optometry Yeny David, OD [address] [facility] [place] [phone] (Wo rk) 05/11/2022 Virtual Visit Pharm D Diana Desir , [facility] [address] [place], [place] [address] (Jefferson carlson) 05/14/2022 Office Visit Cardiology Livan Sharif MD [address] [facility] [address] [place], [place] [address] (Wo rk) 05/31/2022 Office Visit Family Practice Valery Veronica PA-C [address] [place], [place] [address] (Wo rk) documented as of this encounter Visit Diagnoses Diagnosis Right ureteral stone - Primary Calculus of ureter Left ureteral stone documented in this encounter Additional Health Concerns Assessment Noted Time PHQ-9 Depression Total Score: 6 08/28/2020 7:05 AM QUICK PRINT OPERATOR documented as of this encounter Care Teams Electric Motor Control Assembler Relationship Specialty Start Date End Date Marija Edgar APRN PCP - General Nurse Practitioner 04/30/20 PACKING FLOOR WORKER [address] [place], [place] [phone] Lita Oseguera Personal Advocate & 02/28/20 Liaison (PAL) Rakesh Cid Assigned PCP 03/02/20 06/07/20 [address] [address] [place] [address] Chanelle Mccann Assigned OBGYN Provider 05/02/20 05/09/21 [place] [address] [address] [address] [place], [place] [id number] documented as of this encounter
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
--- OUTSIDE RECORDS SUMMARY | 2022-04-28 01:22 | XMS_ITS | Encounter Summary ---
:2000 Author Organization [facility] Address [address] [place] [address]. [place] [address] Care Team Providers Name Role Phone Oumar, Lita Unavailable Unavailable Rakesh Cid PA-C Unavailable [phone] Marija Edgar APRN CROSS TIE TRAM LOADER Primary Care Provider Chanelle Mccann [facility] NON LICENSED NUCLEAR EQUIPMENT OPERATOR CNM Unavailable + Encounter Details Date Type Department Care Team Description 05/27/2020 Virtual Visit [facility] Mynor Broussard, Right ureteral stone (Primary Dx); Clinic Alberta Watson MD Left ureteral stone [id number] [place] [address] [place] [id number] [place], [place] [phone] Social History Tobacco Use Types Packs/Day Years [...] How often do you attend christian or denominational services? Never 09/22/2021 Do you [...] been in contact with No / Unsure 05/30/2020 5:03 AM DIRECTOR CONSUMER AFFAIRS someone who was confirmed or suspected to have Coronavirus / COVID-19? documented as of this encounter Progress Notes Mynor Broussard MD - 05/27/2020 3:00 PM CST Urology Consult History and Physical ALBERTA WATSON Name: Kim Johnson Date of : 2000 We were asked to see Kim Johnson at the request of [facility] ER FOLLOW UP for evaluation and treatment of bilateral ureteral stones. Chief Complaint: Bilateral ureteral stones History is obtained from the patient History of Present Illness: Kim Johnson is a 20 year old female who is being seen for evaluation of Bilateral ureteral stones. She has had intermittent pain Has frequent history of bacterial vaginosis Pain on her sides and lower abdomen a lot Last 2 days having increased dizziness About 4 days ago she had extreme left sided onset flank pain when she was going to void This pain lasted about 20 minutes. No prior history of kidney stones As a child she had recurrent kidney infections She had a prior surgery for injection of Deflux at age 5 or 7 No further issues after that time She does have family history of kidney stones in her father PMH of epilepsy - last seizure >1 year ago Past Medical History: Past Medical History: Diagnosis Date ??? Anxiety ??? Chronic kidney disease ??? Depressive disorder ??? Gastroesophageal reflux disease ??? Seizure (H) 05/02/2019 Past Surgical History: Past Surgical History: Procedure Laterality Date ??? GENITOURINARY SURGERY Social History: Social History Tobacco Use ??? Smoking status: Former Smoker Packs/day: 1.00 Types: Other Quit date: 12/07/2019 Years since quittin.4 ??? Smokeless tobacco: Never Used Substance Use Topics ??? Alcohol use: Not Currently History Smoking Status ??? Former Smoker ??? Packs/day: 1.00 ??? Types: Other ??? Quit date: 12/07/2019 Smokeless Tobacco ??? Never Used Family History: Family History Problem Relation Age of Onset ??? Heart Disease Maternal Grandfather ??? Brain Tumor Sister Allergies: No Known Allergies Medications: Current Outpatient Medications Medication Sig ??? ferrous sulfate (FEROSUL) 325 (65 Fe) MG tablet Take 325 mg by mouth ??? HYDROcodone-acetaminophen (NORCO) 5-325 MG tablet Take 1 tablet by mouth every 4 hours as neededfor severe pain ??? hydrOXYzine (ATARAX) 25 MG tablet Take 1 tablet (25 mg) by mouth 3 times daily as needed for anxiety ??? metroNIDAZOLE (FLAGYL) 500 MG tablet Take 1 tablet (500 mg) by mouth 2 times daily for 7 days ??? naproxen (NAPROSYN) 500 MG tablet Take 500 mg by mouth ??? norethindrone (MICRONOR) 0.35 MG tablet Take 1 tablet (0.35 mg) by mouth daily ??? omeprazole (PRILOSEC) [address] capsule Take 1 capsule (40 mg) by mouth daily ??? ondansetron (ZOFRAN ODT) 4 MG ODT tab Take 1 tablet (4 mg) by mouth every 6 hours as needed for nausea ??? propranolol (INDERAL) 20 MG tablet Take 1 tablet (20 mg) by mouth 3 times daily as needed (palpitations, anxiety) ??? sertraline (ZOLOFT) 100 MG tablet Take 1.5 tablets (150 mg) by mouth daily ??? tiZANidine (ZANAFLEX) 4 MG tablet Take 1 tablet (4 mg) by mouth nightly as needed for muscle spasms ??? triamcinolone (KENALOG) 0.1 % external cream Apply topically 2 times daily ??? zonisamide (ZONEGRAN) 100 MG capsule Take 2 capsules (200 mg) by mouth 2 times daily No current facility-administered medications for this visit. Review of Systems: Skin: negative Eyes: negative Ears/Nose/Throat: negative Respiratory: No shortness of breath, dyspnea on exertion, cough, or hemoptysis Cardiovascular: negative Gastrointestinal: negative Genitourinary: as above Musculoskeletal: negative Neurologic: negative Psychiatric: negative Hematologic/Lymphatic/Immunologic: negative Endocrine: negative Physical Exam: PHYSICAL EXAM Patient is a 20 year old female Vitals: Last menstrual period 05/05/2020. There is no height or weight on file to calculate BMI. General Appearance Adult: Alert, no acute distress, oriented HENT: throat/mouth:normal, good dentition Lungs: no respiratory distress, or pursed lip breathing Heart: No obvious jugular venous distension present Abdomen: non - distended Musculoskeltal: extremities normal, no peripheral edema Skin: no suspicious lesions or rashes Neuro: Alert, oriented, speech and mentation normal Psych: affect and mood normal Gait: Normal Data: All laboratory data reviewed: UA RESULTS: Recent Labs Lab Test 05/26/20 2212 04/30/20 1508 COLOR Straw Yellow APPEARANCE Clear Clear URINEGLC Negative Negative URINEBILI Negative Negative URINEKETONE Negative Negative SG 1.009 >1.030 UBLD Negative Negative URINEPH 6.0 5.5 PROTEIN Negative Negative UROBILINOGEN -- 0.2 NITRITE Negative Negative LEUKEST Negative Negative RBCU 1 -- WBCU 1 -- Lab Results Component Value Date CR 0.74 05/26/2020 IMAGING: All pertinent imaging reviewed: All imaging studies reviewed by me. I personally reviewed these imaging films. A formal report from radiology will follow. FINDINGS: LOWER CHEST: Unremarkable ?? HEPATOBILIARY: Unremarkable ?? PANCREAS: Unremarkable ?? SPLEEN: Unremarkable ?? ADRENAL GLANDS: Unremarkable ?? KIDNEYS/BLADDER: Minimal prominence of the left renal collecting system without hydroureter.. Large calculus at the level of the left ureterovesical junction measuring 12 mm. 9 mm calculus at the levelof the right ureterovesical junction. Additional probable 2 to 3 mm calculus slightly in the distal right ureter.. There are several small pelvic phleboliths. ?? BOWEL: No bowel obstruction. Normal appendix. Stomach is quite distended. ?? LYMPH NODES: No significant retroperitoneal adenopathy. ?? VASCULATURE: No abdominal aortic aneurysm ?? PELVIC ORGANS: Involuting right ovarian cyst/corpus luteum measuring 1.9 cm. Moderate volume of freepelvic fluid. ?? MUSCULOSKELETAL: No acute bony abnormalities. ?? IMPRESSION: 1. Large nonobstructing calculi at the level of the ureterovesical junction bilaterally. Given theirsize/location and lack of significant obstruction, this does raise the possibility of ureteroceles. 2. Moderate free pelvic fluid. Impression and Plan: Impression: 20-year-old female who presented with left-sided flank and abdominal pain with CT scan concerning for possible bilateral UVJ stones and a 2 to 3 mm right distal ureteral stone. She does have history of childhood VUR with prior Deflux procedure Plan: Bilateral UPJ calcifications and a right 2 mm distal ureteral stone -I reviewed her labs and imaging -I measure the Hounsfield units of the larger calcifications at 700 to 1000 Hounsfield units -She does have a very small 2 to 3 mm right distal ureteral stone, though she does not have any symptoms on her right side -We discussed the options and plan to proceed with bilateral ureteroscopy. Liliam the possible need for ureteral stents and that the calcifications noted are likely to be outside of the bladder and urethral mucosa as calcified Deflux -I did confirm with pediatric radiology colleague we discussed that calcification of the Deflux can happen though this is higher Hounsfield units then is reported in the literature for common calcification of the Deflux material Thank you for the kind consultation. Time spent: 30 minutes of which >50% was spent counseling. Mynor Broussard MD Urology [facility] Physicians [facility] Kim Johnson is a 20 year old [...] you like to obtain your AVS? MyChart Video-Visit Details Type of service: Video Visit Video Start Time: 3:00 Video End Time: 3:30 Originating Location (pt. Location): Home Distant Location (provider location): [facility] Platform used for Video Visit: Biopharmacopae Mynor Broussard MD CTOR CONSUMER AFFAIRS documented in this encounter Plan of Treatment Upcoming Encounters Date Type Specialty Care Team Description 04/28/2022 Office Visit Family Practice Anthony Doe, ROVERT[address] [address] [place], [place] [phone] (Wo rk) 05/03/2022 Office Visit Dermatology Neil Kent M D [address] [place], [place] [phone] (Wo rk) 05/05/2022 Office Visit Optometry Yeny David, OD [address] [place] [phone] (Wo rk) 05/11/2022 Virtual Visit Pharm D Diana Desir , [facility] [address] [place], [place] [phone] (Wo rk) 05/14/2022 Office Visit Cardiology Livan Sharif MD [address], [facility] [address] [place], [place] [address] (Wo rk) 05/31/2022 Office Visit Family Practice Valery Veronica PA-C [address] [place] [address] (Wo rk) documented as of this encounter Results Asymptomatic COVID-19 Virus (Coronavirus) by PCR (05/28/2020 3:18 PM DIRECTOR CONSUMER AFFAIRS) [facility] Method Time Signature COVID-19 Nasopharyngeal 05/28/2020 [facility] Virus PCR to 3:20 PM DIRECTOR CONSUMER AFFAIRS CLINICS [facility] Source COVID-19 Not Detected 05/29/2020 [facility] Virus PCR to 12:31 PM [facility] DIAGNOSTIC Result LABORATORY, [facility] Comment: Collection of multiple specimens from th [...] and amplified using the HDPCR SARS-CoV-2 assay (The Industry's Alternative.). The HDPCRTM PITO S-CoV-2 assay is a reverse metallurgical technician real-time polymerase chain reaction (qRT-PCR) test intended [...] (Centers for Disease Control) Testing performed by [facility] ([facility]) [address] [facility] [address] [facility] [address] The test performance characteristics wer e determined [...] Specimen from 05/28/2020 3:18 05/28/2020 nasopharyngeal PM DIRECTOR CONSUMER AFFAIRS 3:19 PM DIRECTOR CONSUMER AFFAIRS structure (specimen) Mynor Broussard MD LAB - MICRO GENERAL ORDERABL ES Performing Organization Address City/State/ZIP Code Phon e Number [facility] [place] [address] DIAGNOSTIC LABORATORY, [address] [facility] [address] [facility] [address] [place] [address] documented in this encounter Visit Diagnoses Diagnosis Right ureteral stone - Primary Calculus of ureter Left ureteral stone documented in this encounter Additional Health Concerns Assessment Noted Time PHQ-9 Depression Total Score: 6 08/28/2020 7:05 AM DIRECTOR CONSUMER AFFAIRS documented as of this encounter Care Teams Laborer/Grade Check Relationship Specialty Start Date End Date Marija Edgar APRN PCP - General Nurse Practitioner 04/30/20 CROSS TIE TRAM LOADER [address] [place] [address] Lita Oseguera Personal Advocate & 02/28/20 Liaison (PAL) Rakesh Cid Assigned PCP 03/02/20 06/07/20 [address] [address] [place], [place] [phone] Chanelle Mccann Assigned OBGYN Provider 05/02/20 05/09/21 [place] [address] [place] [address] documented as of this encounter
--- OUTSIDE RECORDS SUMMARY | 2022-04-28 01:22 | XMS_ITS | Encounter Summary ---
:2000 Author Organization [facility] Address [address] [place] [address] Care Team Providers Name Role Phone OumarJackyLita Unavailable Unavailable Rakesh Cid PA-C Unavailable [phone] Marija Edgar APRN MANAGER ENERGY Primary Care Provider [phone] Chanelle Mccann APRN CNM Unavailable + Lesley Moody MA Unavailable Encounter Details Date Type Department Care Team Description 05/30/2020 Travel Social History Tobacco Use Types Packs/Day [...] How often do you attend islam or latter-day services? Never 09/22/2021 Do you [...] with No / Unsure 05/30/2020 5:03 AM EMAIL MARKETING COORDINATOR someone who was confirmed or suspected to have Coronavirus / COVID-19? documented as of this encounter Plan of Treatment Upcoming Encounters Date Type Specialty Care Team Description 04/28/2022 Office Visit Family Practice Anthony Doe PA-C [address] [place], [place] [phone] (Wo rk) 05/03/2022 Office Visit Dermatology Neil Kent M D [address] [place], [place] [address] (Wo rk) 05/05/2022 Office Visit Optometry Yeny David, OD [address] [address] [address] [place] [phone] (Wo rk) 05/11/2022 Virtual Visit Pharm D Diana Desir , [facility] [address] [place], [place] [address] (Wo rk) 05/14/2022 Office Visit Cardiology Livan Sharif MD [address] , [facility] [address] [place], [place] [address] (Wo rk) 05/31/2022 Office Visit Family Practice Valery Veronica PA-C [address] [place], [place] [address] (Wo rk) documented as of this encounter Visit Diagnoses Not on filedocumented in this encounter Additional Health Concerns Assessment Noted Time PHQ-9 Depression Total Score: 6 08/28/2020 7:05 AM EMAIL MARKETING COORDINATOR documented as of this encounter Care Teams Armored Vehicle Officer Relationship Specialty Start Date End Date Marija Edgar APRN PCP - General Nurse Practitioner 04/30/20 MANAGER ENERGY [address] [place] [address] Lita Oseguera Personal Advocate & 02/28/20 Liaison (PAL) Rakesh Cid Assigned PCP 03/02/20 06/07/20 [address] [address] [place], [place] [phone] Chanelle Mccann Assigned OBGYN Provider 05/02/20 05/09/21 [place] [address] [address] [facility] [address] [place], [place] [address] Lesley Moody, Community Health Worker 05/30/20 06/08/20 [place] documented as of this encounter
--- OUTSIDE RECORDS SUMMARY | 2022-04-28 01:22 | XMS_ITS | Encounter Summary ---
:2000 Author Organization [facility] Address [address] [place] [address]. [place] [address] Care Team Providers Name Role Phone Oumar, Lita Unavailable Unavailable Rakesh Cid PA-C Unavailable [phone] Marija Edgar APRN, CNP Primary Care Provider [phone] Chanelle Mccann APRN CN Unavailable + Reason for Referral [facility] (Routine) - Closed Specialty Diagnoses / Procedures Referred By Contact Refer red To Contact Diagnoses Encounter related to worker's compensation claim Lumbar pain Acute upper back pain Marija Edgar APRN CNP [id number] [place] [phone] Referral ID Status Reason Start Date Expiration Date Visits Requ ested Visits Authorized [id number] Closed 05/12/2020 05/12/2021 1 1 OLOGY PROFESSOR Reason for Visit Reason Comments Back Pain Encounter Details Date Type Department Care Team Description 05/12/2020 Office Visit [facility] Marija Edgar Encoun ter related to worker's compensation claim (Primary Dx); Clinic [place] ARLENE GRANADOS Lumbar pain; [address] [place] [address] [phone] Social History Tobacco Use Types Packs/Day Years [...] week 09/22/2021 How often do you attend hoahaoism or yarsanism services? Never 09/22/2021 Do you belong to any clubs or organizations such as No 09/22/2021 hoahaoism groups, unions, fraternal or athletic groups, or [...] or slept in a mcc (including now)? Sex Assigned at Date Recorded Female 03/02/2021 5:45 PM CDT COVID-19 Exposure Response Date Recorded In the last month, have you been in contact with No / Unsure 05/12/2020 9:03 AM SOCIOLOGY PROFESSOR someone who was confirmed or suspected to have Coronavirus / COVID-19? documented as of this encounter Last Filed Vital Signs Vital Sign Reading Time Taken Comments Blood Pressure 121/66 05/12/2020 11:08 AM SOCIOLOGY PROFESSOR Pulse 73 05/12/2020 11:08 AM SOCIOLOGY PROFESSOR Temperature 37 ??C (98.6 ??F) 05/12/2020 11:08 AM SOCIOLOGY PROFESSOR Respiratory Rate 21 05/12/2020 11:08 AM SOCIOLOGY PROFESSOR Oxygen Saturation 99% 05/12/2020 11:08 AM SOCIOLOGY PROFESSOR Inhaled Oxygen Concentration - - Weight 82.6 kg (182 lb 3.2 oz) 05/12/2020 11:08 AM SOCIOLOGY PROFESSOR Height 165.1 cm (5' 5) 05/12/2020 11:08 AM SOCIOLOGY PROFESSOR Body Mass Index 30.32 05/12/2020 11:08 AM SOCIOLOGY PROFESSOR documented in this encounter Patient Instructions Patient InstructionsGiMarija candelaria APRN CNP - 05/12/2020 11:00 AM SOCIOLOGY PROFESSOR Ibuprofen 600-800 mg (3-4 tabs of over the counter ibuprofen) mg every 8 hours x 5-7 days. May also alternate with Tylenol 500-1000 mg three times per day. Consult Physical Therapy. Consider tizanidine at bedtime. OLOGY PROFESSOR documented in this encounter Progress Notes Marija Edgar APRN CNP - 05/12/2020 11:00 AM CST Subjective Kim Johnson is a 20 year old female who presents to clinic today for the following health issues: HPI Back Pain Onset/Duration: 05/09/20 Description: Location of pain: low back bilateral and shoulders bilateral Character of pain: gnawing and constant Pain radiation: radiates into the right leg, front of leg New numbness or weakness in legs, not attributed to pain: YES- handsd Intensity: Currently 5/10; Worst 9/10, Best 3/10 Progression of Symptoms: worsening History: Specific cause: lifting, turning/bending, lifting resident of approximately 200 lbs Pain interferes with job: YES- called in Tuesday and today History of back problems: no prior back problems Any previous MRI or X-rays: Nonef Sees a specialist for back pain: No Alleviating factors: Improved by: acetaminophen (Tylenol), cold, rest and stretch Precipitating factors: Worsened by: Lifting, Bending, Standing and Walking Therapies tried and outcome: acetaminophen (Tylenol), cold, rest, sitting, standing and surgery Accompanying Signs & Symptoms: Risk of Fracture: None Risk of Cauda Equina: None Risk of Infection: None Risk of Cancer: None Risk of Ankylosing Spondylitis: Onset at age <35, male, AND morning back stiffness no Work comp - was lifting a resident that typically helps stand up... resident did not give any assistance on lift. [place] tear in back on lift. Review of Systems Constitutional, HEENT, cardiovascular, pulmonary, gi and gu systems are negative, except as otherwise noted. Objective BP 121/66 (BP Location: Right arm, Patient Position: Sitting, Cuff Size: Adult Regular) Pulse 73 Temp 98.6 ??F (37 ??C) (Oral) Resp 21 Ht 1.651 m (5' 5) Wt 82.6 kg (182 lb 3.2 oz) SpO2 99% BMI 30.32 kg/m?? Body mass index is 30.32 kg/m??. Physical Exam GENERAL: healthy, alert and no distress NECK: no adenopathy, no asymmetry, masses, or scars and thyroid normal to palpation RESP: lungs clear to auscultation - no rales, rhonchi or wheezes CV: regular rate and rhythm, normal S1 S2, no S3 or S4, no murmur, click or rub, no peripheral edemaand peripheral pulses strong MS: no gross musculoskeletal defects noted, no edema Comprehensive back pain exam: Tenderness of upper and lower bilateral back. No midline tenderness., Pain limits the following motions: to upper and lower extremity bilateral, Lower extremity strength functional and equal on both sides, Lower extremity sensation normal and equal on both sides and Straight leg raise negative bilaterally No results found for this or any previous visit (from the past 24 hour(s)). Assessment & Plan Kim was seen today for back pain. Diagnoses and all orders for this visit: Encounter related to worker's compensation claim Acute upper back pain Lumbar pain - [facility] PT, HAND, AND CHIROPRACTIC REFERRAL; Future Discussed strains of upper and lower back. NSAIDs recommended. Has tizanidine for bedtime. 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 Work note provided. No red flags on exam. Patient Instructions Ibuprofen 600-800 mg (3-4 tabs of over the counter ibuprofen) mg every 8 hours x 5-7 days. May also alternate with Tylenol 500-1000 mg three times per day. Consult Physical Therapy. Consider tizanidine at bedtime. Return in about 2 weeks (around 05/26/2020) for Preventive Visit, appointment already scheduled. Marija Edgar APRN [facility] OLOGY PROFESSOR documented in this encounter Plan of Treatment Upcoming Encounters Date Type Specialty Care Team Description 04/28/2022 Office Visit Family Practice Anthony Doe, PABaldo [address] [place], [place] [phone] (Wo rk) 05/03/2022 Office Visit Dermatology Neil Kent M D [address] [place] [address] (Wo rk) 05/05/2022 Office Visit Optometry Yeny David, OD [address] [facility] [address] [place], [place] [phone] (Wo rk) 05/11/2022 Virtual Visit Pharm D Diana Desir , [facility] [address] [place], [place] [address] (Wo rk) 05/14/2022 Office Visit Cardiology Livan Sharif MD [address] [facility] [address] [facility] [address] [place], [place] [address] (Wo rk) 05/31/2022 Office Visit Family [facility] Valery Veronica PA-C [address] [place], [place] [address] (Wo rk) Scheduled Referrals Name Type Priority Associated Diagnoses Order S chedule [facility] PT, HAND, AND Referral Routine Encounter related to Ex pected: CHIROPRACTIC REFERRAL worker's compensati on 05/12/2020, claim Expires: 05/12/2021 Lumbar pain Acute upper back pain documented as of this encounter Visit Diagnoses Diagnosis Encounter related to worker's compensati on claim - Primary Lumbar pain Lumbago Acute upper back pain Pain in thoracic spine documented in this encounter Additional Health Concerns Assessment Noted Time PHQ-9 Depression Total Score: 12 03/27/2020 2:40 PM CD T documented as of this encounter Care Teams Shop Director Relationship Specialty Start Date End Date Marija Edgar APRN PCP - General Nurse Practitioner 04/30/20 PANTOGRAPH WATCHER [address] [place], [place] [phone] Lita Oseguera Personal Advocate & 02/28/20 Liaison (PAL) Rakesh Cid Assigned PCP 03/02/20 06/07/20 [address] [address] [place] [address] Chanelle Mccann Assigned OBGYN Provider 05/02/20 05/09/21 [place] [address] [address] [facility] [address] [place] [address] documented as of this encounter
--- OUTSIDE RECORDS SUMMARY | 2022-04-28 01:22 | XMS_ITS | Encounter Summary ---
:2000 Author Organization [facility] Address [address] [place] [id number] Care Team Providers Name Role Phone Lita Oseguera Unavailable Unavailable Rakesh Cid PA-C Unavailable [phone] Marija Edgar APRN SUPERVISORY IT SPECIALIST Primary Care Provider [phone] Chanelle Mccann [facility] CRM MARKETING EXECUTIVE CNM Unavailable + Lesley Moody MA Unavailable Mynor Broussard MD Unavailable Reason for Visit Reason Onset Date Comments Call Back 06/02/2020 Encounter Details Date Type Department Care Team Description 06/02/2020 Telephone [facility] Epilepsy Care Keisha Dotson, Call Back [address] MD [address] [place], [place] [phone] [place] [address] (Wo rk) Social History Tobacco [...] How often do you attend religious or zoroastrianism services? Never 09/22/2021 Do you [...] with No / Unsure 05/30/2020 5:03 AM STAFF MIDWIFE someone who was confirmed or suspected to have Coronavirus / COVID-19? documented as of this encounter Miscellaneous Notes Telephone Encounter - Kyara De La Fuente RN - 06/02/2020 3:03 PM CST An incoming new patient calls the office today with report of newly identified . She is scheduled for a visit with Dr. Murray on Jun 23. Patient is unsure how far along she is. Her hcg on 05/30/20 was 286 international unit(s)/L. We discussed her concerns about zonisamide and . She reports she is taking 200 mg daily and has been seizure free for a year and a half. I told her that zonisamide is a medication that some women stay on during , it is not a the most concerning medication (like depakote and phenobarbital). I advised she continue her dose tonight and we rescheduled her new patient appointment for tomorrow by video with Dr. Murray to discuss this further. She asked if gabapentin is ok with zonisamide and if sertraline is ok with zonisamide. Per UpToDate, sertraline and zonisamide have combined ACURA SALES CONSULTANT effects. Patient said she doesn't have side effects of having these two medications together. I told her that depending on her epilepsy syndrome gabapentin may not angelica good choice of anti anxiety medication for her but again this would be further explored with Dr. Murray tomorrow. Patient confirmed that she will be in [place] at the time of her appointment tomorrow. F MIDWIFE Telephone Encounter - Pao Latham - 06/02/2020 12:18 PM CST What is the concern that needs to be addressed by a nurse?Patient called to ask question about taking her Zonisamide. She just found out she is and had appointment with her OBGYN and they are wondering if it is safe to take? She is in the process of starting care with us but is hoping we can answer the question for her. May a detailed message be left on voicemail? Yes Date of last office visit: 06/23/20 Message routed to: Amber ZABALA Pool F MIDWIFE documented in this encounter Plan of Treatment Upcoming Encounters Date Type Specialty Care Team Description 04/28/2022 Office Visit Family Practice Anthony Doe, PABaldo [address] [place], [place] [phone] (Wo rk) 05/03/2022 Office Visit Dermatology Neil Kent M D [address] [place], [place] [phone] (Jefferson rk) 05/05/2022 Office Visit Optometry Yeny David, OD [address] [facility] [place] [phone] (Jefferson carlson) 05/11/2022 Virtual Visit Pharm D Diana Desir , [facility] [address] [place], [place] [phone] (Wo rk) 05/14/2022 Office Visit Cardiology Livan Sharif MD [address], [address] [place], [place] [address] (Wo rk) 05/31/2022 Office Visit Family Practice Valery Veronica , [facility] [address] [place], [place] [phone] (Wo rk) documented as of this encounter Visit Diagnoses Not on filedocumented in this encounter Additional Health Concerns Assessment Noted Time PHQ-9 Depression Total Score: 6 08/28/2020 7:05 AM STAFF MIDWIFE documented as of this encounter Care Teams Wetlands Technician Relationship Specialty Start Date End Date Marija Edgar APRN PCP - General Nurse Practitioner 04/30/20 SUPERVISORY IT SPECIALIST [address] [place] [address] Lita Oseguera Personal Advocate & 02/28/20 Liaison (PAL) Rakesh Cid Assigned PCP 03/02/20 06/07/20 ROVERTO [address]ers [address] [place], [place] [phone] Chanelle Mccann Assigned OBGYN Provider 05/02/20 05/09/21 ARLENE Mooney CNAdam [address] [address] [facility], [address] [place], [place] [address] Lesley Moody, Community Health Worker 05/30/20 06/08/20 JOSE ALBERTO Mynor Broussard MD Assigned Surgical 06/01/20 11/28/21 [address] Provider [address] [place], [place] [phone] documented as of this encounter
--- OUTSIDE RECORDS SUMMARY | 2022-04-28 01:22 | XMS_ITS | Encounter Summary ---
:2000 Author Organization [facility] Address [address] [place] [id number] Care Team Providers Name Role Phone Oumar Lita Unavailable Unavailable Rakesh Cid PA-C Unavailable Marija Edgar APRN PHP MYSQL DEVELOPER Primary Care Provider [phone] [facility] CNM Unavailable + Reason for Visit Reason Comments Flank Pain Encounter Details Date Type Department Care Team Description 05/26/2020 - Emergency [facility] Adolfo Brower ovarian cyst; 05/27/2020 [facility] Emergency RMD Abdominal pain, generalized; Dept [facility] Ureteral stone; [address] Bacterial vaginosis [place], [place] [address] [place] [address] [place], [place] [id number] [phone] (Wo rk) Social History Tobacco Use Types [...] How often do you attend [employer] or [employer] services? Never 09/22/2021 Do you [...] slept in a nursing home (including now)? Sex Assigned at Date Recorded Female 03/02/2021 5:45 PM CDT COVID-19 Exposure Response Date Recorded In the last month, have you been in contact with No / Unsure 05/12/2020 9:03 AM CUTTER WET MACHINE someone who was confirmed or suspected to have Coronavirus / COVID-19? documented as of this encounter Last Filed Vital Signs Vital Sign Reading Time Taken Comments Blood Pressure 122/73 05/27/2020 2:20 AM CUTTER WET MACHINE Pulse 103 05/27/2020 2:20 AM CUTTER WET MACHINE Temperature 36.9 ??C (98.4 ??F) 05/26/2020 10:13 PM CUTTER WET MACHINE Respiratory Rate 20 05/26/2020 10:13 PM CUTTER WET MACHINE Oxygen Saturation 99% 05/27/2020 2:25 AM CUTTER WET MACHINE Inhaled Oxygen Concentration - - Weight - - Height - - Body Mass Index - - documented in this encounter Discharge Instructions Discharge InstructionsAdolfo Brower MD - 05/27/2020 2:09 AM CUTTER WET MACHINE I believe your symptoms are most likely related to an ovarian cyst. I expect your pain to improve with time and will provide pain medications to assist with the discomfort. It is important you follow-up with a brick grader to ensure that this resolves. There were calcifications in the pelvis which may represent atypical kidney stones in the tube that drains urine from the kidney to the bladder called the ureter. You need to have further evaluation bya urologist to further determine their presence and whether treatment is necessary. Please call themfor follow-up as soon as possible. Discharge Instructions Ovarian Cyst Abdominal (belly) pain can be caused by many things. Your provider today has found that you have a cyst on the ovary. Women in their reproductive years form cysts every month, but only cause pain if they are very large, or if they rupture and release blood or fluid. Fortunately, they rarely require surgery or hospitalization. The pain from a ruptured cyst usually gets gradually better, and should be much better within a few days. If there is a large cyst, it will usually go away within 1-2 months, but needs to be watched to be sure it does go away, since sometimes a large cyst can become a cancer. There can be complications of a cyst, or other problems that cannot be found right away, so it is very important that you follow up as directed. Generally, every Emergency Department visit should have a follow-up clinic visit with either a primary or a specialty clinic/provider. Please follow-up as instructed by your emergency provider today. Return to the Emergency Department right away if: Your pain becomes much worse or constant You get an oral temperature above 100.4??F or as directed by your provider. You have frequent vomiting You faint, or feel very weak. You have new symptoms or anything that worries you. What can I do to help myself? Take any medication prescribed by your provider. You may use Tylenol?? (acetaminophen) or Advil??, Motrin?? (ibuprofen) for pain. Be sure to read andfollow the package directions, and ask your provider if you have questions. Avoid sex for several days, because it will probably be painful. If you were given a prescription for [...] if there is anything that worries you. ER WET MACHINE documented in this encounter Medications at Time of Discharge Medication Sig Dispensed Refills Start Date End Date HYDROcodone-acetaminophe Take 1 tablet by 12 tablet 0 05/2705/30/2020 n (NORCO) 5-325 MG mouth every 4 hours tablet as needed for severe pain ondansetron (ZOFRAN ODT) Take 1 tablet (4 10 tablet 0 05/2705/30/2020 4 MG ODT tab mg) by mouth every 6 hours as needed for nausea ferrous sulfate Take 325 mg by 0 06/04 (FEROSUL) 325 (65 Fe) MG mouth tablet hydrOXYzine (ATARAX) 25 Take 1 tablet (25 90 tablet 0 02/2006/04/2020 MG tabletIndications: mg) by mouth 3 Anxiety times daily as needed for anxiety metroNIDAZOLE (FLAGYL) Take 1 tablet (500 14 tablet 0 05/2706/04/2020 500 MG tablet mg) by mouth 2 times daily for 7 days naproxen (NAPROSYN) 500 Take 500 mg by 0 04/12/20 16 09/30/2020 MG tablet mouth norethindrone (MICRONOR) Take 1 tablet (0.35 84 tablet 3 06/04/2020 0.35 MG mg) by mouth daily tabletIndications: Encounter for initial prescription of contraceptive pills omeprazole (PRILOSEC) 40 Take 1 capsule (40 90 capsule 3 03/03/[address] mg) by mouth daily capsuleIndications: Epigastric pain propranolol (INDERAL) 20 Take 1 tablet (20 90 tablet 1 06/11/201906/04/2020 MG tabletIndications: mg) by mouth 3 Anxiety, Palpitations times daily as needed (palpitations, anxiety) sertraline (ZOLOFT) 100 Take 1.5 tablets 135 tablet 1 201907/17/2020 MG tabletIndications: (150 mg) by mouth Anxiety daily tiZANidine (ZANAFLEX) 4 Take 1 tablet (4 30 tablet 0 201806/04/2020 MG tabletIndications: mg) by mouth Cervicalgia nightly as needed for muscle spasms triamcinolone (KENALOG) Apply topically 2 80 g 1 05/0206/04/2020 0.1 % external times daily creamIndications: Psoriasis zonisamide (ZONEGRAN) Take 2 capsules 120 capsule 0 05/16/20 20 06/19/2020 100 MG (200 mg) by mouth 2 capsuleIndications: times daily History of seizure documented as of this encounter ED Notes Meredith Sheets RN - 05/27/2020 2:29 AM CST Patient returns from from ultrasound. Complaining of bloating, constipation, abdominal pain. ER WET MACHINE Yanely Woods - 05/27/2020 1:33 AM CST Bed: ED12 Expected date: Expected time: Means of arrival: Comments: Hold for 21 ER WET MACHINE Mark Pagan RN - 05/26/2020 10:13 PM CST Left sided flank pain for 2 days, worse with urination. Pt also notes lightheadedness. Denies n/v/d.ABCs intact GCS 15 ER WET MACHINE Adolfo Brower MD - 05/26/2020 10:08 PM CST History Chief Complaint Flank Pain The history is provided by the patient. Kim Johnson is a 20 year old female with a history of anxiety, depression, GERD, epilepsy, and recurrent UTIs who presents for evaluation of 3 days of intermittent sharp non radiating left sided flank pain. The patient states that the pain came on very suddenly right before urinating 3 days ago andlasted about 20 minutes. The pain typically seems to worsen right before urinating. She endorses increased urination. She states that the amount of vaginal discharge might be slightly more than usual, but denies any vaginal bleeding. She also has some slight constipation, but no nausea. She does endorse a change of . She has been dizzy the past few days as well. She has a history of anemia, but takes iron supplements. Notably, she had frequent kidney infections as a child and had surgery toincrease the fluid in her kidney. Allergies No Known Allergies Medications Iron Sertraline Omeprazole Propranolol Zonegran Micronor Tizanidine Past Medical History Anxiety Chronic kidney disease Depression GERD Epilepsy Recurrent UTIs (as child) Past Surgical History Kidney surgery Family History Sister - brain tumor Social History The patient was accompanied to the ED by her boyfriend. Smoking Status: former smoker Smokeless Tobacco: never Alcohol Use: not currently Drug Use: no Review of Systems Gastrointestinal: Positive for constipation. Negative for nausea. Genitourinary: Positive for flank pain, frequency and vaginal discharge. Negative for vaginal bleeding. Neurological: Positive for dizziness. All other systems reviewed and are negative. Physical Exam Patient Vitals for the past 24 hrs: BP Temp Temp src Pulse Resp SpO2 05/27/20 0045 132/69 -- -- 91 -- 100 % 05/27/20 0015 116/68 -- -- 77 -- 100 % 05/27/20 0000 115/66 -- -- -- -- 100 % 05/26/20 2213 (!) 155/82 98.4 ??F (36.9 ??C) Oral 89 20 97 % Physical Exam Constitutional: Pleasant, age appropriate female. Eyes: Conjunctiva normal Neck: Supple, no meningismus. CV: Regular rate and rhythm. No murmurs, rubs or gallops. No lower extremity edema. PULM: Clear to auscultation bilateral. No respiratory distress. Good air exchange. No rales or wheezing. ABD: Soft, non-distended. Mild-moderate tenderness in the LLQ and midline low abdomen. Bowel sounds normal. No pulsatile masses. No rebound, guarding or rigidity. Minimal left CVA tenderness. No hepatosplenomegaly. : Normal external genitalia. No blood in the in the vaginal vault. Small amount of thin white vaginal discharge. No cervical motion tenderness. Uterus is not enlarged. No adnexal mass. MSK: No gross deformity to all four extremities. LYMPH: No cervical lymphadenopathy. NEURO: Alert. Good muscular tone, no atrophy. Skin: Warm, dry and intact. Psych: Mood is good and affect is appropriate. Emergency Department Course Imaging: Radiology findings were communicated with the patient who voiced understanding of the findings. CT abdomen pelvis w contrast: IMPRESSION: 1. ??Large nonobstructing calculi at the level of the ureterovesical junction bilaterally. Given their size/location and lack of significant obstruction, this does raise the possibility of ureteroceles. 2. ??Moderate free pelvic fluid. US Pelvic Complete with Transvaginal Preliminary Result IMPRESSION: 1. Minimal to moderate free fluid in the pelvis and in the right adnexa. This surrounds a collapsingcyst measuring 0.9 x 1.0 x 0.9 cm compatible with a collapsing corpus luteal cyst. 2. Flow present to both ovaries on color Doppler imaging. 3. Uterus and endometrium unremarkable. CT Abdomen Pelvis w Contrast Final Result IMPRESSION: 1. Large nonobstructing calculi at the level of the ureterovesical junction bilaterally. Given theirsize/location and lack of significant obstruction, this does raise the possibility of ureteroceles. 2. Moderate free pelvic fluid. Readings per Radiology Laboratory: Laboratory findings were communicated with the patient who voiced understanding of the findings. UA with Microscopic: bacteria few (A), mucous present (A) o/w WNL HCG Qualitative Urine: negative BMP: chloride 110 (H), glucose 104 (H), calcium 8.4 (L) o/w WNL (Creatinine 0.74) CBC: AWNL (WBC 8.5, HGB 12.0, PLT 232) Wet Prep: Clue cells seen (A) o/w WNL (Few PMNs seen. No Trichomonas seen. No yeast seen.) Chlamydia trachomatis PCR: Pending Neisseria gonorrhoea PCR: Pending Interventions: 0000 NS 1L IV Bolus 0000 Toradol 15 mg IV Emergency Department Course: Past medical records, nursing notes, and vitals reviewed. 2322 I physically examined the patient as documented above. 2358 I performed a pelvic exam as documented above. IV was inserted and blood was drawn for laboratory testing, results above. The patient provided a urine sample here in the emergency department. This was sent for laboratory testing, findings above. The patient was sent for radiographs while in the emergency department, results above. 1314 I rechecked the patient and discussed the findings of their workup thus far. [address] Torres of urology. Findings and plan explained to the Patient. Patient discharged home with instructions regarding supportive care, medications, and reasons to return. The importance of close follow-up was reviewed. I personally reviewed the laboratory and imaging results with the Patient and answered all related questions prior to discharge. Impression & Plan Medical Decision Makin-year-old female seen in the ED with abrupt onset of low abdominal pain and flank pain 3 days prior. Urinalysis is unremarkable and rule out infection. Pelvic examination reveals mild vaginitis and wet prep positive for bacterial vaginosis. Patiently placed on Flagyl. Due to concern for potential ureteral stone, CT scan undertaken of the abdomen pelvis undertaken. CTscan is abnormal in which there is an ovarian cyst with free fluid as the likely source of her symptoms. There were also suspected bilateral UVJ stones but quite remarkable in size measuring 9 and 12 mm. Despite this large size, there was no associated hydronephrosis. I did speak with the urologist on-call who was unable to directly visualize the images but felt that the patient would be safe for discharge home in the absence of renal insufficiency, obstructive findings or concerning urinalysis. I did have discussion with the radiologist as well in which these may represent stones within a ureterocele. I believe the pain is likely related to ovarian cyst rupture and less likely ureteral stones based on historical information and radiographic findings. Patient's pain is improved. Pelvic ultrasound does confirm presence ovarian cyst with free fluid. Patient is safe for discharge home with close follow-up with gynecology for the ovarian cyst. Dr. Broussard of urology will visualize the images in the morning and patient will be referred to urology for further investigation of the abnormal CT findings today. Diagnosis: ICD-10-CM 1. Right ovarian cyst N83.201 2. Abdominal pain, generalized R10.84 3. Ureteral stone N20.1 4. Bacterial vaginosis N76.0 B96.89 Disposition: Discharged to home. Discharge Medications: New Prescriptions HYDROCODONE-ACETAMINOPHEN (NORCO) 5-325 MG TABLET Take 1 tablet by mouth every 4 hours as needed for severe pain METRONIDAZOLE (FLAGYL) 500 MG TABLET Take 1 tablet (500 mg) by mouth 2 times daily for 7 days ONDANSETRON (ZOFRAN ODT) 4 MG ODT TAB Take 1 tablet (4 mg) by mouth every 6 hours as needed for nausea Scribe Disclosure: I, Paige Urbano, am serving as a scribe at 11:21 PM on 05/26/2020 to document services personallyperformed by Adolfo Brower MD based on my observations and the provider's statements to me. Adolfo Brower MD 05/27/20 0241 ER WET MACHINE documented in this encounter Plan of Treatment Upcoming Encounters Date Type Specialty Care Team Description 04/28/2022 Office Visit Family Practice Anthony Doe, PAUcheC [address] [place], [place] [phone] (Wo rk) 05/03/2022 Office Visit Dermatology Neil Kent M D [address] [place], [place] [id number] (Wo rk) 05/05/2022 Office Visit Optometry Yeny David, OD [address] [facility] [address] [place], [place] [phone] (Wo rk) 05/11/2022 Virtual Visit Pharm D Diana Desir , [facility] [address] [place], [place] [phone] (Wo rk) 05/14/2022 Office Visit Cardiology Livan Sharif MD [address] [facility] [address] [place], [place] [phone] (Wo rk) 05/31/2022 Office Visit Family Practice Valery Veronica PAUcheC [address] [place], [place] [phone] (Wo rk) documented as of this encounter Procedures Procedure Name Priority Date/Time Associated Comments Diagnosis US PELVIC STAT 05/27/2020 2:25 AM Results f or this TRANSABDOMINAL AND CUTTER WET MACHINE procedure are in TRANSVAGINAL the results section. CT ABDOMEN PELVIS W STAT 05/27/2020 12:41 Resu lts for this CONTRAST AM CUTTER WET MACHINE procedure are i n the results section. WET PREPARATION STAT 05/26/2020 11:59 Results for this PM CUTTER WET MACHINE procedure are i n the results section. NEISSERIA GONORRHOEAE STAT 05/26/2020 11:59 Right ovarian c yst Results for this PCR PM CUTTER WET MACHINE procedure are i n the results section. CHLAMYDIA TRACHOMATIS STAT 05/26/2020 11:59 Right ovarian c yst Results for this PCR PM CUTTER WET MACHINE procedure are i n the results section. BASIC METABOLIC PANEL STAT 05/26/2020 11:56 Re sults for this PM CUTTER WET MACHINE procedure are i n the results section. CBC WITH PLATELETS STAT 05/26/2020 11:56 Resul ts for this PM CUTTER WET MACHINE procedure are i n the results section. HCG QUALITATIVE URINE STAT 05/26/2020 10:12 Re sults for this PM CUTTER WET MACHINE procedure are i n the results section. ROUTINE UA WITH STAT 05/26/2020 10:12 Results for this MICROSCOPIC PM CUTTER WET MACHINE procedure are i n the results section. documented in this encounter Results US Pelvic Complete with Transvaginal (05/27/2020 2:25 AM CUTTER WET MACHINE) Anatomical Region Laterality Modality Abdomen/Pelvis Ultrasound Specimen (Source) Anatomical Collection Method Collection Time Re ceived Time Location / / Volume Laterality 05/27/2020 1:56 AM CUTTER WET MACHINE Impressions 05/27/2020 2:39 AM CUTTER WET MACHINE IMPRESSION: 1. ??Minimal to moderate free fluid in t he pelvis and in the right adnexa. This surrounds a collapsing cyst measuring 0.9 x 1.0 x 0.9 cm compatible with a collapsing corpus luteal cyst. 2. ??Flow present to both ovaries on col or Doppler imaging. 3. ??Uterus and endometrium unremarkable . Narrative 05/27/2020 2:39 AM CUTTER WET MACHINE EXAM: US PELVIC COMPLETE WITH TRANSVAGINAL LOCATION: [facility] DATE/TIME: 05/27/2020 1:56 AM INDICATION: Left lower quadrant and pelv ic pain with left flank pain. Abnormal CT demonstrating free fluid deep within the pelvis. COMPARISON: CT 05/27/2020. TECHNIQUE: Transabdominal scans were per formed. Endovaginal ultrasound was performed to better visualize the adnexa. FINDINGS: UTERUS: 6.1 x 4.1 x 4.4 cm. Normal in si ze and position with no masses. ENDOMETRIUM: 13 mm. Normal smooth endome trium. RIGHT OVARY: 2.9 x 2.2 x 2.2 cm. Collaps ing 0.9 x 1.0 x 0.9 cm cyst most compatible with a collapsing corpus luteal cyst. Color Doppler imaging demonstrates flow to the right ovary. LEFT OVARY: 1.8 x 1.1 x 1.1 cm. Normal w ith flow demonstrated. Minimal to moderate free fluid in the pe lvis and surrounding the right adnexa. Procedure Note Severiano Saini MD - 05/27/2020Formatt ing of this note might be different from the original. EXAM: US PELVIC COMPLETE WITH TRANSVAGIN AL LOCATION: [facility] DATE/TIME: 05/27/2020 1:56 AM INDICATION: Left lower quadrant and pelv ic pain with left flank pain. Abnormal CT demonstrating free fluid deep within the pelvis. COMPARISON: CT 05/27/2020. TECHNIQUE: Transabdominal scans were per formed. Endovaginal ultrasound was performed to better visualize the adnexa. FINDINGS: UTERUS: 6.1 x 4.1 x 4.4 cm. Normal in si ze and position with no masses. ENDOMETRIUM: 13 mm. Normal smooth endome trium. RIGHT OVARY: 2.9 x 2.2 x 2.2 cm. Collaps ing 0.9 x 1.0 x 0.9 cm cyst most compatible with a collapsing corpus luteal cyst. Color Doppler imaging demonstrates flow to the right ovary. LEFT OVARY: 1.8 x 1.1 x 1.1 cm. Normal w ith flow demonstrated. Minimal to moderate free fluid in the pe lvis and surrounding the right adnexa. IMPRESSION: 1. Minimal to moderate free fluid in the pelvis and in the right adnexa. This surrounds a collapsing cyst measuring 0.9 x 1.0 x 0.9 cm compatible with a collapsing corpus luteal cyst. 2. Flow present to both ovaries on color Doppler imaging. 3. Uterus and endometrium unremarkable. Adolfo Brower MD IMG US ORDERABLES CT Abdomen Pelvis w Contrast (05/27/2020 12:41 AM CUTTER WET MACHINE) Anatomical Region Laterality Modality Abdomen/Pelvis, SUBRAD CT BODY, UMP CT ABDOMEN PELVIS, Computed Tomography RAD CT Specimen (Source) Anatomical Collection Method Collection Time Re ceived Time Location / / Volume Laterality 05/27/2020 12:32 AM CUTTER WET MACHINE Impressions 05/27/2020 1:08 AM CUTTER WET MACHINE IMPRESSION: 1. ??Large nonobstructing calculi at the level of the ureterovesical junction bilaterally. Given their size/location and lack of significant obstruction, this does raise the possibility of ureteroceles. 2. ??Moderate free pelvic fluid. Narrative 05/27/2020 1:08 AM CUTTER WET MACHINE EXAM: CT ABDOMEN PELVIS W CONTRAST LOCATION: [facility] DATE/TIME: 05/27/2020 12:32 AM INDICATION: 20-year-old female with hist ory of anxiety and depression, gastroesophageal reflux, chronic [...] ADRENAL GLANDS: Unremarkable KIDNEYS/BLADDER: Minimal prominence of t he left renal collecting system without hydroureter.. Large calculus at the level of the left ureterovesical junction measuring 12 mm. 9 mm calculus at the level of the right ureterovesical junction. Ad ditional probable 2 to 3 mm calculus slightly in the distal right ureter.. There are several small pelvic phleboliths. BOWEL: No bowel obstruction. Normal appe ndix. Stomach is quite distended. LYMPH NODES: No significant retroperiton eal adenopathy. VASCULATURE: No abdominal aortic aneurys m PELVIC ORGANS: Involuting right ovarian cyst/corpus luteum measuring 1.9 cm. Moderate volume of free pelvic fluid. MUSCULOSKELETAL: No acute bony abnormali ties. Procedure Note Ruslan Pitts MD - 05/27/2020Formatt ing of this note might be different from the original. EXAM: CT ABDOMEN PELVIS W CONTRAST LOCATION: [facility] DATE/TIME: 05/27/2020 12:32 AM INDICATION: 20-year-old female with hist ory of anxiety and depression, gastroesophageal reflux, chronic [...] ADRENAL GLANDS: Unremarkable KIDNEYS/BLADDER: Minimal prominence of t he left renal collecting system without hydroureter.. Large calculus at the level of the left ureterovesical junction measuring 12 mm. 9 mm calculus at the level of the right ureterovesical junction. Additiona l probable 2 to 3 mm calculus slightly in the distal right ureter.. There are several small pelvic phleboliths. BOWEL: No bowel obstruction. Normal appe ndix. Stomach is quite distended. LYMPH NODES: No significant retroperiton eal adenopathy. VASCULATURE: No abdominal aortic aneurys m PELVIC ORGANS: Involuting right ovarian cyst/corpus luteum measuring 1.9 cm. Moderate volume of free pelvic fluid. MUSCULOSKELETAL: No acute bony abnormali ties. IMPRESSION: 1. Large nonobstructing calculi at the l evel of the ureterovesical junction bilaterally. Given their size/location and lack of significant obstruction, this does raise the possibility of ureteroceles. 2. Moderate free pelvic fluid. Adolfo Brower MD IMG CT ORDERABLES Neisseria gonorrhoeae PCR (05/26/2020 11:59 PM CUTTER WET MACHINE) Analysis Performed At Patho logist Time Signature Specimen Vagina 05/27/2020 [facility] 12:00 AM [facility] N Gonorrhea Negative NEG^Negati 05/27/2020 INFECTIOUS PCR ve 11:59 AM CUTTER WET MACHINE [facility] Comment: Negative for N. gonorrhoeae rRNA by barahona scription mediated amplification. A negative result by toucher up media maddie amplification does not preclude the presence of N. gonorrhoeae infection because results are dependent on proper and adequate collection, absence of inhibitors, and sufficient rRNA to be detected. Specimen Anatomical Collection Method Collection Time Receive d Time (Source) Location / / Volume Laterality Specimen from 05/26/2020 11:59 05/27/2020 vagina PM CUTTER WET MACHINE 12:10 AM CUTTER WET MACHINE (specimen) Adolfo Brower MD LAB - MICRO GENERAL ORDERABL ES Performing Organization Address City/State/ZIP Code Phon e Number INFECTIOUS DISEASES [address] [place] [address] [facility], [facility] [address] [phone] Chlamydia trachomatis PCR (05/26/2020 11:59 PM CUTTER WET MACHINE) [facility] [employer] Method Time Signature Specimen Vagina 05/27/2020 [facility] Description 12:00 AM [facility] Chlamydia Negative NEG^Negat 05/27/2020 INFECTIOUS Trachomatis PCR shyam 11:59 AM CUTTER WET MACHINE [facility] Comment: Negative for C. trachomatis rRNA by barahona scription mediated amplification. A negative result by toucher up media maddie amplification does not preclude the presence of C. trachomatis infection because results are dependent on proper and adequate collection, absence of inhibitors, and sufficient rRNA to be detected. Specimen Anatomical Collection Method Collection Time Receive d Time (Source) Location / / Volume Laterality Specimen from 05/26/2020 11:59 05/27/2020 vagina PM [employer] 12:10 AM [employer] (specimen) Adolfo Brower MD LAB - MICRO GENERAL ORDERABL ES Performing Organization Address City/[facility]/ZIP Code Phon e Number INFECTIOUS DISEASES [address] [place] [address] DIAGNOSTIC LABORATORY, [facility] [address], [place] [address], [facility] [phone] (ABNORMAL) Wet prep (05/26/2020 11:59 PM [employer]) [facility] Method Time Signature Specimen Vagina [facility] Description [facility] Wet Prep No Trichomonas 05/27/2020 [facility] seen 12:19 AM [facility] Wet Prep No yeast seen 05/27/2020 [facility] 12:19 AM [facility] Wet Prep Few 05/27/2020 [facility] PMNs seen 12:19 AM [facility] Wet Prep Clue cells seen 05/27/2020 [facility] (A) 12:19 AM [facility] Specimen Anatomical Collection Method Collection Time Receive d Time (Source) Location / / Volume Laterality Specimen from 05/26/2020 11:59 05/27/2020 vagina PM [employer] 12:09 AM [employer] (specimen) Adolfo Brower MD LAB - MICRO GENERAL ORDERABL ES Performing Organization Address City/[facility]/ZIP Code Phon e Number [facility] [address], [place] [address] [facility] [address], [place] [address] [phone] (ABNORMAL) Basic metabolic panel (BMP) (05/26/2020 11:56 PM [employer]) P athologist Signature Sodium 140 133 - 144 05/27/2020 [place] mmol/L 12:25 AM [facility] Potassium 3.9 3.4 - 5.3 05/27/2020 [place] mmol/L 12:25 AM [facility] Chloride 110 (H) 94 - 109 05/27/2020 [place] mmol/L 12:25 AM [facility] Carbon Dioxide 24 20 - 32 05/27/2020 [place] mmol/L 12:31 AM [facility] Anion Gap 6 3 - 14 05/27/2020 [place] mmol/L 12:31 AM [facility] Glucose 104 (H) 70 - 99 05/27/2020 [place] mg/dL 12:31 AM [facility] Urea Nitrogen 9 7 - 30 05/27/2020 [place] mg/dL 12:31 AM [facility] Creatinine 0.74 0.52 - 05/27/2020 [place] 1.04 mg/dL 12:31 AM [facility] GFR Estimate >90 >60 05/27/2020 [place] mL/min/{1. 12:31 AM [facility] 73_m2} HOSPITAL Comment: Non GFR Calc Starting 06/27/2018, serum creatinine ba sed estimated GFR (eGFR) will be calculated using the Chronic Kidney Dise [facility] Epidemiology Collaboration (CKD-EPI) equation. GFR Estimate If >90 >60 mL/min/{1.73_m2} 05/27/2020 12:31 AM [facility] Comment: GFR Calc Starting 06/27/2018, serum creatinine ba sed estimated GFR (eGFR) will be calculated using the Chronic Kidney Dise [facility] Epidemiology Collaboration (CKD-EPI) equation. Calcium 8.4 (L) 8.5 - 10.1 mg/dL 05/27/2020 12:31 AM [facility] Specimen Anatomical Collection Method Collection Time Receive d Time (Source) Location / / Volume Laterality Blood specimen 05/26/2020 11:56 0 (specimen) PM [facility] [employer] 12:11 AM [facility] Adolfo Brower MD LAB - BLOOD ORDERABLES Performing Organization Address City/State/ZIP Code Phon e Number M [facility] [address] [address] [facility] [address] [place], [place] [address], [facility] [phone] [facility] [address] [address], [facility] (ABNORMAL) CBC (platelets, no diff) (05/26/2020 11:56 PM [employer]) Analysis Performed At Patho logist Time Signature WBC 8.5 4.0 - 11.0 05/27/2020 [facility] 10e9/L 12:15 AM [facility] RBC Count 4.55 3.8 - 5.2 05/27/2020 [facility] 10e12/L 12:15 AM [facility] Hemoglobin 12.0 11.7 - 05/27/2020 [facility] 15.7 g/dL 12:15 AM [facility] Hematocrit 37.9 35.0 - 05/27/2020 [facility] 47.0 % 12:15 AM [facility] MCV 83 78 - 100 05/27/2020 [facility] fl 12:15 AM [facility] MCH 26.4 (L) 26.5 - 05/27/2020 [facility] 33.0 pg 12:15 AM [facility] MCHC 31.7 31.5 - 05/27/2020 [facility] 36.5 g/dL 12:15 AM [facility] RDW 12.7 10.0 - 05/27/2020 [facility] 15.0 % 12:15 AM [facility] Platelet Count 232 150 - 450 05/27/2020 [facility] 10e9/L 12:15 AM [facility] Specimen Anatomical Collection Method Collection Time Receive d Time (Source) Location / / Volume Laterality Blood specimen 05/26/2020 11:56 0 (specimen) PM [employer] 12:11 AM [employer] Adolfo Brower MD LAB - BLOOD ORDERABLES Performing Organization Address City/State/ZIP Code Phon e Number Adam [facility] [address], [place] [address] [facility] [address], [place] [address], [facility] [phone] HCG qualitative urine (05/26/2020 10:12 PM [employer]) P athologist Signature HCG Qual Urine Negative NEG^Negati 05/26/2020 [facility] ve 10:51 PM [facility] Comment: This test is for screening purposes. ??R esults should be interpreted along with the clinical picture. ??Confirmation te sting is available if warranted by ordering [id number], HCG Quantitative Pregna ncy. Specimen Anatomical Collection Method Collection Time Receive d Time (Source) Location / / Volume Laterality Urine specimen 05/26/2020 10:12 0 (specimen) PM [employer] 10:32 PM [employer] Adolfo Brower MD LAB - URINE ORDERABLES Performing Organization Address City/State/ZIP Code Phon e Number M [place] [address] [address] [facility] [address] [address] [phone] (ABNORMAL) Routine UA with microscopic (05/26/2020 10:12 PM [employer]) Patholo gist Method Time Signature Color Urine Straw 05/26/2020 [place] 10:40 PM [facility] Appearance Urine Clear 05/26/2020 [place] 10:40 PM [facility] Glucose Urine Negative NEG^Negat 05/26/2020 [place] shyam mg/dL 10:40 [facility] Bilirubin Urine Negative NEG^Negat 05/26/2020 [place] shyam 10:40 PM [facility] Ketones Urine Negative NEG^Negat 05/26/2020 [place] shyam mg/dL 10:40 PM [facility] Specific [place] 1.009 1.003 - 05/26/2020 [place] Urine 1.035 10:40 PM [facility] Blood Urine Negative NEG^Negat 05/26/2020 [place] shyam 10:40 PM [facility] pH Urine 6.0 5.0 - 7.0 05/26/2020 [place] pH 10:40 [facility] Protein Albumin Negative NEG^Negat 05/26/2020 [place] Urine shyam mg/dL 10:40 PM [facility] Urobilinogen Normal 0.0 - 2.0 05/26/2020 [place] mg/dL mg/dL 10:40 PM [facility] Nitrite Urine Negative NEG^Negat 05/26/2020 [place] shyam 10:40 PM [facility] Leukocyte Negative NEG^Negat 05/26/2020 [place] Esterase Urine shyam 10:40 PM [facility] Source Midstream 05/26/2020 [place] Urine 10:32 PM [facility] WBC Urine 1 0 - 5 05/26/2020 [facility] /HPF 10:40 PM [facility] RBC Urine 1 0 - 2 05/26/2020 [facility] /HPF 10:40 PM [facility] Bacteria Urine Few (A) NEG^Negat 05/26/2020 [place] shyam /HPF 10:40 PM [facility] Squamous 1 0 - 1 05/26/2020 [place] Epithelial /HPF /HPF 10:40 PM [facility] Mucous Urine Present (A) NEG^Negat 05/26/2020 [place] shyam /LPF 10:40 PM [facility] Specimen (Source) Anatomical Collection Method Collection Time Re ceived Time Location / / Volume Laterality Examination of 05/26/2020 10:12 0 midstream urine PM [employer] 10:32 PM [employer] specimen (procedure) Adolfo Brower MD LAB - URINE ORDERABLES Performing Organization Address City/State/ZIP Code Phon e Number [place] [address] [phone] documented in this encounter Visit Diagnoses Diagnosis Right ovarian cyst Other and unspecified ovarian cyst Abdominal pain, generalized Ureteral stone Calculus of ureter Bacterial vaginosis Vaginitis and vulvovaginitis, unspecifie d documented in this encounter Administered Medications Inactive Administered Medications - up to 3 most recent administrations Medication Order MAR Action Action Date Dose Rate Site 0.9% sodium chloride BOLUS New Bag 05/27/2020 12:00 AM 1,000 mLs 1000 mL/hr Intravenous, 1,000 mL, [employer] ONCE, at 1,000 mL/hr, Administer over 1 Hours, On 05/26/20 at 2330, For [address] scan flush use Given 05/27/2020 12:34 AM [employer] 63 mLs Intravenous, 100 mL, ONCE, On Tue05/27/20 at 0035, For 1 dose, This entry is for use by Radiology to intermittently used as a flush in patients recieving a CT scan. iopamidol (ISOVUE-370) solution 500 mL Given 05/27/2020 12:34 AM [employer] 92 mLs 500 mL, Intravenous, ONCE, On Tue05/27/20 at 0035, For 1 dose ketorolac (TORADOL) injection 15 mg Given 05/27/2020 12:00 AM [employer] 15 mg 15 mg, Intravenous, ONCE, On Tue05/26/20 at 2330, For 1 dose, Can cause pain on injection. If ordered intravenously (IV) : administer through a running maintenance fluid over 1 minute followed by a flush. If patient complains of pain on injection, may dilute 15-30 mg in 5 mL and push over 1 to 2 minutes. documented in this encounter Active and Recently Administered Medications Times are shown in [employer]. Scheduled Medication Order 05/25/2020 05/26/2020 05/27/2020 0.9% sodium chloride BOLUS (COMPLETED) 0000 (New Bag - Provider: Amalia Miller, VJ)0106 (Stopped - Provider: Amalia Miller, RN) Intravenous, 1,000 mL, ONCE, at 1,000 mL /hr, Administer over 1 Hours, Tue05/26/20 at 2330, For [address] scan flush use (COMPLETED) 0034 (Given - Provider: Dara Torres) Intravenous, 100 mL, ONCE, Tue05/27/20 at 0035, For 1 dose, This entry is for use by Radiology to intermittently used as a flush in patients recieving a CT scan. HYDROmorphone (PF) (DILAUDID) injection 0.5 mg 0125 (Canceled Entry - Provider: Naga Generic Provider - Comment: Automatically canceled at discontinue of medication order) 0.5 mg, Intravenous, ONCE, Tue05/27/20 at 0125, For 1 dose, For ordered IV doses 0.1-4 mg give IV Push undiluted. Administer each 2mg over 2-5 minutes. iopamidol (ISOVUE-370) solution 500 mL (COMPLETED) 0034 (Given - Provider: Dara Torres) 500 mL, Intravenous, ONCE, 05/27/20 at 0035, For 1 dose ketorolac (TORADOL) injection 15 mg (COMPLETED) 0000 (Given - Provider: Amalia Miller, VJ) 15 mg, Intravenous, ONCE, 05/26/20 a t 2330, For 1 dose, Can cause pain on injection. If ordered intravenously (IV) : administer through a running maintenance fluid over 1 minute followed by a flush. If patient complains of pain on injecti on, may dilute 15-30 mg in 5 mL and push over 1 to 2 minutes. documented in this encounter Additional Health Concerns Assessment Noted Time PHQ-9 Depression Total Score: 6 08/28/2020 7:05 AM [employer] documented as of this encounter Care Teams Director Of Federal Sales Relationship Specialty Start Date End Date Marija Edgar APRN PCP - General Nurse Practitioner 04/30/20 [employer] [address] [place] [address] Lita Oseguera Personal Advocate & 02/28/20 Liaison (PAL) Rakesh Cid Assigned PCP 03/02/20 06/07/20 ROVERTO Landers [address] [place] [address] Chanelle Mccann Assigned OBGYN Provider 05/02/20 05/09/21 ARLENE Mooney [facility] [address] [address] [place] [address] documented as of this encounter
--- OUTSIDE RECORDS SUMMARY | 2022-04-28 01:22 | XMS_ITS | Encounter Summary ---
:2000 Author Organization Bee Address [address] [place] [address]. [place] [address] Care Team Providers Name Role Phone Lita Oseguera Unavailable Unavailable Rakesh Cid PA-C Unavailable [phone] Marija Edgar APRN MOVER Primary Care Provider [phone] Chanelle Mccann MIXER DRIVER CNM Unavailable + Lesley Moody MA Unavailable [...] URETEROSCOPY WITH LASER LITHOTRIPSY AND BASKET [address], [address] REMOVAL OF STONES, BILATERAL URETERAL STENT [address]AC [address] [place] [address] Phone: Referral ID Status Reason Start Date Expiration Date Visits Requ ested Visits Authorized [id number] 1 1 Encounter Details Date Type Department Care Team Description 05/30/2020 Hospital Encounter [facility] Mynor Broussard R ight ureteral stone; Vasiliy ACEVEDO Left ureteral stone PreOP/Phase II [address], [address] [place] [address] [place] [id number] Social History Tobacco Use Types Packs/Day Years [...] How often do you attend hoahaoism or temple services? Never 09/22/2021 Do you [...] with No / Unsure 05/30/2020 5:03 AM ENTERPRISE ARCHITECT MANAGER someone who was confirmed or suspected to have Coronavirus / COVID-19? documented as of this encounter Last Filed Vital Signs Vital Sign Reading Time Taken Comments Blood Pressure 110/75 05/30/2020 6:40 AM ENTERPRISE ARCHITECT MANAGER Pulse - - Temperature 37.6 ??C (99.7 ??F) 05/30/2020 6:40 AM ENTERPRISE ARCHITECT MANAGER Respiratory Rate 24 05/30/2020 6:40 AM ENTERPRISE ARCHITECT MANAGER Oxygen Saturation - - Inhaled Oxygen Concentration - - Weight 86.6 kg (191 lb) 05/30/2020 6:40 AM ENTERPRISE ARCHITECT MANAGER Height 165.1 cm (5' 5) 05/30/2020 6:40 AM ENTERPRISE ARCHITECT MANAGER Body Mass Index 31.78 05/30/2020 6:40 AM ENTERPRISE ARCHITECT MANAGER documented in this encounter Medications at [...] Take 1 tablet (20 90 tablet 1 06/0 11/201906/04/2020 MG tabletIndications: mg) by mouth 3 Anxiety, [...] (ZONEGRAN) Take 2 capsules 120 capsule 0 05/16/2006/19/2020 100 MG (200 mg) by mouth 2 capsuleIndications: times daily History of seizure documented as of this encounter Progress Notes Mynor Broussard MD - 05/30/2020 7:24 AM CST Kim Johnson [phone] May 30, 2020 7:26 AM Preoperative test positive today and confirmed on blood test. We discussed that we will cancel the surgery for today. I reviewed her CT images with her again. I have discussed her case with the pediatric urology colleague who confirmed that the bilateral UVJ appearing calcifications are consistent with calcified Deflux, which she had instilled as a trial to treat her vesicoureteral reflux. She does have evidence of a 2 to 3 mm right distal ureteral stone, however is not having any symptoms from this and has a high likelihood of stone passage. Her renal function is normal today and she has no evidence of leukocytosis and so I believe the risk of surgery would not outweigh its benefits. She is in agreement with this plan. We will plan for virtual visit follow-up in 3 to 4 weeks to assess for symptoms. I advised that she reach out to her PCP and her prior LEAK GANG SUPERVISOR today for guidance regarding her normal medications. Mynor Broussard M.D. RPRISE ARCHITECT MANAGER documented in this encounter Nursing Notes Mikki Bedoya RN - 05/30/2020 7:[address] Broussard here, conferring with pt, surgery cancelled. OR desk notified, surgery cancelled due to pt's current 120 minutes face to face time. RPRISE ARCHITECT MANAGER Mikki Bedoya RN - 05/30/2020 6:57 AM CST OR desk notified of potential cancellation Dr Broussard texted. RPRISE ARCHITECT MANAGER Mikki Bedoya RN - 05/30/2020 6:26 AM CST Positive urine test, lab notified, blood HCG to be drawn RPRISE ARCHITECT MANAGER documented in this encounter Plan of Treatment Upcoming Encounters Date Type Specialty Care Team Description 04/28/2022 Office Visit Family [facility] Anthony Doe, PAUcheC [address] [place] [address] (Wo rk) 05/03/2022 Office Visit Dermatology Neli Kent M D [address] [place], [place] [address] (Wo rk) 05/05/2022 Office Visit Optometry Yeny David, OD [address] [place] [address] (Wo rk) 05/11/2022 Virtual Visit Pharm D Diana Desir , [facility] [address] [place], [place] [address] (Wo rk) 05/14/2022 Office Visit Cardiology Livan Sharif MD [address] , [facility] [place] [address] [place], [place] [address] (Wo rk) 05/31/2022 Office Visit Family [facility] Valery Veronica , PAUcheC [address] [place], [place] [address] (Wo rk) documented as of this encounter Procedures Procedure Name Priority Date/Time Associated Comments Diagnosis CBC WITH PLATELETS & STAT 05/30/2020 6:37 AM Right ureteral Results for this DIFFERENTIAL ENTERPRISE ARCHITECT MANAGER stone procedure are i n the results section. HCG QUANTITATIVE STAT 05/30/2020 6:37 AM Right ureteral Res ults for this ENTERPRISE ARCHITECT MANAGER stone procedure are i n the results section. BASIC METABOLIC PANEL Routine 05/30/2020 6:37 AM Right uretera l Results for this ENTERPRISE ARCHITECT MANAGER stone procedure are i n the results section. HCG QUALITATIVE URINE STAT 05/30/2020 5:40 AM Right uretera l Results for this ENTERPRISE ARCHITECT MANAGER stone procedure are i n the results section. documented in this encounter Results Basic metabolic panel (05/30/2020 6:37 AM ENTERPRISE ARCHITECT MANAGER) P athologist Signature Sodium 135 133 - 144 05/30/2020 [facility] mmol/L 7:00 AM [facility] Potassium 3.4 3.4 - 5.3 05/30/2020 [facility] mmol/L 7:00 AM [facility] Chloride 109 94 - 109 05/30/2020 [facility] mmol/L 7:00 AM [facility] Carbon Dioxide 21 20 - 32 05/30/2020 [facility] mmol/L 7:03 AM [facility] Anion Gap 5 3 - 14 05/30/2020 [facility] mmol/L 7:03 AM [facility] Glucose 91 70 - 99 05/30/2020 [facility] mg/dL 7:03 AM [facility] Urea Nitrogen 8 7 - 30 05/30/2020 [facility] mg/dL 7:03 AM [facility] Creatinine 0.68 0.52 - 05/30/2020 [facility] 1.04 mg/dL 7:03 AM [facility] GFR Estimate >90 >60 05/30/2020 [facility]/{1. 7:03 AM [facility] 73_m2} [facility]OSPITAL Comment: Non GFR Calc Starting 06/27/2018, serum creatinine ba sed estimated GFR (eGFR) will be calculated using the Chronic Kidney Dise ase Epidemiology Collaboration (CKD-EPI) equation. GFR Estimate If >90 >60 mL/min/{1.73_m2} 05/30/2020 7: 03 AM [facility] Comment: GFR Calc Starting 06/27/2018, serum creatinine ba sed estimated GFR (eGFR) will be calculated using the Chronic Kidney Dise ase Epidemiology Collaboration (CKD-EPI) equation. Calcium 8.5 8.5 - 10.1 mg/dL 05/30/2020 7:03 AM [facility] Specimen Anatomical Collection Method Collection Time Receive d Time (Source) Location / / Volume Laterality 05/30/2020 6:37 AM 0 6:38 ENTERPRISE ARCHITECT MANAGER AM ENTERPRISE ARCHITECT MANAGER Mynor Broussard MD LAB - BLOOD ORDERABLES Performing Organization Address City/State/ZIP Code Phon e Number [facility] [address] [address] [facility] [address] [address], [place] [phone] CBC with platelets differential (05/30/2020 6:37 AM ENTERPRISE ARCHITECT MANAGER) [facility] gist Method Time Signature WBC 7.7 4.0 - 05/30/2020 [facility] 11.0 6:45 AM [facility] 10e9/L [facility] RBC Count 4.58 3.8 - 5.2 05/30/2020 [facility] 10e12/L 6:45 AM [facility] Hemoglobin 12.2 11.7 - 05/30/2020 [facility] 15.7 g/dL 6:45 AM [facility] Hematocrit 37.0 35.0 - 05/30/2020 [facility] 47.0 % 6:45 AM [facility] MCV 81 78 - 100 05/30/2020 [facility] fl 6:45 AM [facility] MCH 26.6 26.5 - 05/30/2020 [facility] 33.0 pg 6:45 AM [facility] MCHC 33.0 31.5 - 05/30/2020 [facility] 36.5 g/dL 6:45 AM [facility] RDW 12.9 10.0 - 05/30/2020 [facility] 15.0 % 6:45 AM [facility] Platelet Count 242 150 - 450 05/30/2020 [facility] 10e9/L 6:45 AM [facility] Diff Method Automated 05/30/2020 [facility] Method 6:45 AM [facility] % Neutrophils 54.6 % 05/30/2020 [facility] 6:45 AM [facility] % Lymphocytes 31.3 % 05/30/2020 [facility] 6:45 AM [facility] % Monocytes 7.2 % 05/30/2020 [facility] 6:45 AM [facility] % Eosinophils 6.5 % 05/30/2020 [facility] 6:45 AM [facility] % Basophils 0.3 % 05/30/2020 [facility] 6:45 AM [facility] % Immature 0.1 % 05/30/2020 [facility] Granulocytes 6:45 AM [facility] Nucleated RBCs 0 0 /100 05/30/2020 [facility] 6:45 AM [facility] Absolute 4.2 1.6 - 8.3 05/30/2020 [facility] Neutrophil 10e9/L 6:45 AM [facility] Absolute 2.4 0.8 - 5.3 05/30/2020 [facility] Lymphocytes 10e9/L 6:45 AM [facility] Absolute 0.6 0.0 - 1.3 05/30/2020 [facility] Monocytes 10e9/L 6:45 AM [facility] Absolute 0.5 0.0 - 0.7 05/30/2020 [facility] Eosinophils 10e9/L 6:45 AM [facility] Absolute 0.0 0.0 - 0.2 05/30/2020 [facility] Basophils 10e9/L 6:45 AM [facility] Abs Immature 0.0 0 - 0.4 05/30/2020 [facility] Granulocytes 10e9/L 6:45 AM [facility] Absolute 0.0 05/30/2020 [facility] Nucleated RBC 6:45 AM [facility] Specimen Anatomical Collection Method Collection Time Receive d Time (Source) Location / / Volume Laterality Blood specimen 05/30/2020 6:37 AM 020 6:38 (specimen) ENTERPRISE ARCHITECT MANAGER AM ENTERPRISE ARCHITECT MANAGER Gareth Valencia MD LAB - BLOOD ORDERABLES Performing Organization Address City/State/ZIP Code Phon e Number [facility] [address] [address] [phone] [facility] [address] [address], [place] [phone] (ABNORMAL) HCG quantitative (05/30/2020 6:37 AM ENTERPRISE ARCHITECT MANAGER) [facility] Method Time Signature HCG Quantitative 286 (H) 0 - 5 IU/L 05/30/2020 [facility] Serum 7:08 AM [facility] Specimen Anatomical Collection Method Collection Time Receive d Time (Source) Location / / Volume Laterality Blood specimen 05/30/2020 6:37 AM 020 6:38 (specimen) ENTERPRISE ARCHITECT MANAGER AM ENTERPRISE ARCHITECT MANAGER Mynor Broussard MD LAB - BLOOD ORDERABLES Performing Organization Address City/State/ZIP Code Phon e Number [facility] [address] [address] [facility] [address] [address], [place] [phone] (ABNORMAL) HCG qualitative urine (05/30/2020 5:40 AM ENTERPRISE ARCHITECT MANAGER) [facility] Method Time Signature HCG Qual Urine Positive (A) NEG^Negat 05/30/2020 [facility] shyam 6:04 AM [facility] Comment: This test is for screening purposes. ??R esults should be interpreted along with the clinical picture. ??Confirmation te sting is available if warranted by ordering [id number], HCG Quantitative Pregna ncy. Specimen Anatomical Collection Method Collection Time Receive d Time (Source) Location / / Volume Laterality Urine specimen URINE SPECIMEN 05/30/2020 5:40 AM 05/30 5:56 (specimen) OBTAINED BY CLEAN ENTERPRISE ARCHITECT MANAGER AM ENTERPRISE ARCHITECT MANAGER CATCH PROCEDURE / Unknown Mynor Broussard MD LAB - URINE ORDERABLES Performing Organization Address City/State/ZIP Code Phon e Number [facility] [address] [address] [facility] [address] [address], [place] [phone] documented in this encounter Visit Diagnoses Diagnosis Right ureteral stone Calculus of ureter Left ureteral stone documented in this encounter Admitting Diagnoses Diagnosis Right ureteral stone Calculus of ureter Left ureteral stone documented in this encounter Administered Medications Inactive Administered Medications - up to 3 most recent administrations Medication Order MAR Action Action Date Dose Rate Site ceFAZolin (ANCEF) 1 g vial to attach to NS 100 ml bag for ADULT or 50 ml bag for PEDS Routine, 1 g, Intravenous, SEE ADMIN INSTRUCTIONS, Sta rting on Tue05/30/20 at 0536, Intra-Op Dose.?Give every 4 hours while patie nt in surgery, starting 4 hours after pre-op dose.?DO NOT GIVE intra-op dose if CrCl less than 10 mL/min (on dialysis).?If CrCl less than 50 mL/min, double the time interval between doses., Indications: Perioperative Pharmacoprophylaxis , Pre-procedure ceFAZolin (ANCEF) intermittent infusion 2 g in 100 mL dextrose PRE-MIX Routine, 2 g, Intravenous, PRE-OP/PRE-NY OCEDURE, Starting on Tue05/30/20 at 0536, For 1 dose, Give first dose within 1 anthony r PRIOR to incision. If patient weight is greater than or equal to 120 kg increase dose to 3 g., Indications: Perioperative Pharmacoprophylaxis, Pre-procedure documented in this encounter Active and Recently Administered Medications Times are shown in ENTERPRISE ARCHITECT MANAGER. Scheduled Medication Order 05/28/2020 05/29/2020 05/30/2020 ceFAZolin (ANCEF) 1 g vial to attach to NS 100 ml bag for ADULT or 50 ml bag for PEDS Routine, 1 g, Intravenous, SEE ADMIN INS TRUCTIONS, Starting Tue05/30/20 at 0536, Intra-Op Dose.?Give every 4 hours while patient in surgery, starting 4 hours after pre-op dose.?DO NOT GIVE intra- op dose if CrCl less than 10 mL/min (on dialysis).?If CrCl less than 50 mL/min, double the time interval between doses., Indications: Perioperative Pharmacoprophylaxis, Pre-procedure ceFAZolin (ANCEF) intermittent infusion 2 g in 100 mL dextrose P RE-MIX Routine, 2 g, Intravenous, PRE-OP/PRE-NY OCEDURE, Starting Tue05/30/20 at 0536, For 1 dose, Give first dose within 1 hour PRIOR to incision. If patient weight is greater than or equal to 120 kg increase dose to 3 g., Indications: Perioperative Pharmacoprophylaxis, P re-procedure documented in this encounter Additional Health Concerns Assessment Noted Time PHQ-9 Depression Total Score: 6 08/28/2020 7:05 AM ENTERPRISE ARCHITECT MANAGER documented as of this encounter Care Teams Indirect Sales Representative Relationship Specialty Start Date End Date Marija Edgar APRN PCP - General Nurse Practitioner 04/30/20 MOVER [address] [place] [address] Lita Oseguera Personal Advocate & 02/28/20 Liaison (PAL) Rakesh Cid Assigned PCP 03/02/20 06/07/20 [address] [address] [place] [address] Chanelle Mccann Assigned OBGYN Provider 05/02/20 05/09/21 [place] [address] [facility] [place] [address] [place], [place] [address] Lesley Moody, Community Health Worker 05/30/20 06/08/20 CT documented as of this encounter
--- OUTSIDE RECORDS SUMMARY | 2022-04-28 01:22 | XMS_ITS | Encounter Summary ---
:2000 Author Organization [employer] Address [address] [place] [address] Care Team Providers Name Role Phone Lita Oseguera Unavailable Unavailable Rakesh Cid PA-C Unavailable [phone] Marija Edgar APRN OIL DISTRIBUTOR TENDER Primary Care Provider [phone] Chanelle Mccann APRN CN Unavailable + Lesley Moody MA Unavailable Kyara De La Fuente RN Unavailable Marija Edgar APRN OIL DISTRIBUTOR TENDER Unavailable Mynor Broussard MD Unavailable Keisha Dotson MD Unavailable Mary Mejia Unavailable Unavailable Stacey Briones CONTINUOUS IMPROVEMENT BLACK BELT Unavailable Lesley Moody MA Unavailable Mary Mejia Unavailable Unavailable Lita Oseguera Unavailable Unavailable Galo Burrell MD Unavailable Cristina Wood Unavailable Unavailable Lesley Moody MA Unavailable Meredith Bedoya Unavailable Unavailable Cristina Wood Unavailable Unavailable Diana Desir [facility] Unavailable Rain Galaviz PA-C Unavailable [phone] Summer Lara MD Unavailable + Summer Lara MD Unavailable + Summer Lara MD Unavailable Tavia Wyatt MD Unavailable Unavailable Johnny Murillo MD Unavailable [phone] Erica Farrell [facility] OIL DISTRIBUTOR TENDER Unavailable + [phone] BeanTeresita [facility] Unavailable [phone] Tavia Wyatt MD Unavailable Unavailable Diana Desir [facility] Unavailable Rich Barrett MD Unavailable [phone] Neil Kent MD Unavailable Roney Story Unavailable Erica Farrell [facility] OIL DISTRIBUTOR TENDER Unavailable + Diana Desir [facility] Unavailable Reason for Visit Reason Onset Date Comments Referral 05/19/2020 Encounter Details Date Type Department Care Team Description 05/19/2020 Telephone [facility] Epilepsy Care Unknown Referral [address] , [address] [place] [phone] Social History Tobacco Use Types Packs/Day [...] How often do you attend temple or episcopal services? Never 09/22/2021 Do you belong to [...] with No / Unsure 05/12/2020 9:03 AM WINERY CELLAR HAND someone who was confirmed or suspected to have Coronavirus / COVID-19? documented as of this encounter Miscellaneous Notes Telephone Encounter - Jolene Mcpherson - 05/19/2020 2:02 PM CST [facility] Phone Message May a detailed message be left on voicemail: yes Reason for Call: Appointment Intake Referring Provider Name: Marija Edgar APRN CNP in FAMILY PRACTICE Diagnosis and/or Symptoms: History of Seizures Being referred to [facility]. Please review. Thanks. Action Taken: Other: [facility] Travel Screening: Not Applicable RY CELLAR HAND documented in this encounter Plan of Treatment Upcoming Encounters Date Type Specialty Care Team Description 04/28/2022 Office Visit Family Practice Anthony Doe PA-C [address] [facility] [place], [place] [phone] (Wo rk) 05/03/2022 Office Visit Dermatology Neil Kent M D [address] [place] [address] (Wo rk) 05/05/2022 Office Visit Optometry Yeny David, OD [address] [facility] [place] [address] (Wo rk) 05/11/2022 Virtual Visit Pharm D Diana Desir , [facility] [address] [place], [place] [address] (Wo rk) 05/14/2022 Office Visit Cardiology Livan Sharif MD [address], [address] [place] [address] (Wo rk) 05/31/2022 Office Visit Family Practice Valery Veronica , PAUcheC [address] [place], [place] [phone] (Wo rk) documented as of this encounter Visit Diagnoses Not on filedocumented in this encounter Additional Health Concerns Infection Onset Date Last Indicated Resolved Time Rule Out COVID-19 07/30/2020 07/30/2020 07/30/2020 7:1 1 PM WINERY CELLAR HAND Rule Out COVID-19 08/30/2020 08/30/2020 08/30/2020 5:0 5 PM WINERY CELLAR HAND Rule Out COVID-19 09/24/2020 09/24/2020 09/24/2020 9:2 4 AM CDT Rule Out COVID-19 11/05/2020 11/05/2020 11/06/2020 1:0 9 PM CDT Rule Out COVID-19 05/11/2021 05/11/2021 05/13/2021 10: 18 AM CDT Rule Out COVID-19 07/13/2021 07/13/2021 07/14/2021 3:0 4 PM WINERY CELLAR HAND Rule Out COVID-19 07/18/2021 07/18/2021 07/20/2021 1:5 6 PM WINERY CELLAR HAND COVID-19 07/18/2021 07/18/2021 08/08/2021 11:39 PM WINERY CELLAR HAND Rule Out COVID-19 12/18/2021 12/18/2021 12/19/2021 11: 34 AM CDT Rule Out COVID-19 02/24/2022 02/24/2022 02/25/2022 1:0 8 PM CDT Rule Out COVID-19 04/26/2022 04/26/2022 04/26/2022 6:4 7 AM CDT Assessment Noted Time PHQ-9 Depression Total Score: 6 08/28/2020 7:05 AM WINERY CELLAR HAND documented as of this encounter Care Teams Song And Dance Performer Relationship Specialty Start Date End Date Marija Edgar, PCP - General Nurse Practitioner 04/30/20 BALANCE STAFF INSPECTOR OIL DISTRIBUTOR TENDER [address] [place] [address] Lita Oseguera Personal Advocate & 02/28/20 Liaison (PAL) Rakesh Cid Assigned PCP 03/02/20 06/07/20 [address]ERT[address] [address] [place], [place] [phone] Chanelle Mccann Assigned OBGYN Provider 05/02/20 05/09/21 Elyse Mooney APRN CNM [address] [address] [facility] [address] [place], [place] [address] Lesley Moody Community Health Worker 05/30/20 06/08/20 JOSE ALBERTO Avendano Kyara De La Fuente, VJ Specialty Care Neurology 06/04/20 03/05/21 Coordinator Marija Edgar, Assigned PCP 06/08/20 BALANCE STAFF INSPECTOR OIL DISTRIBUTOR TENDER [address] [place], [place] [phone] Mynor Broussard MD Assigned Surgical 06/01/20 11/28/21 [address] [facility] Provider [facility] [address] [place], [place] [phone] Mauri, Assigned Neuroscience 06/04/20 MD Keisha Provider [address] [place] [address] Mary Mejia Financial Resource 08/07/2008/11 Worker Stacey Briones, Lead Jewel Waxer [facility] - CC 08/11/20 12/30/20 CONTINUOUS IMPROVEMENT BLACK BELT Lesley Moody Community Health Worker 08/11/20 10/01/20 CJOSE ALBERTO Mary Mejia Financial Resource 09/02/2009/09 Worker Lita Oseguera Personal Advocate & Family Medicine 09/10/20 09/21/20 Liaison (PAL) Galo Burrell MD Assigned Heart and 10/05/20 04/02/22 [address] Vascular Provider [address] [place] [address] Cristina Wood Financial Resource 10/07/20 10/14/20 Worker Lesley Moody [facility] Health Worker 10/23/20 12/30/20 Romana, JOSE ALBERTO Meredith Bedoya Financial Resource 10/23/20 11/23/20 Worker Cristina Wood Financial Resource 02/09/21 02/09/21 Worker Diana Desir, Pharmacist Pharmacist 04/17/21 [facility] [address] [place], [place] [phone] Rain Galaviz Physician Bookbinder Apprentice Dermatology 04/28/21 ROVERTO Paredes [address] [place] [address] [facility] [place] [address] Summer Lara MD Assigned OBGYN Provider 05/10/21 05/23/[address] [place], [place] [phone] Summer Lara MD Assigned OBGYN Provider 05/31/21 03/12/22 [address] [place], [place] [phone] Summer Lara MD Assigned OBGYN Provider 05/24/21 05/30/21 [address] [place], [place] [phone] Tavia Wyatt MD Dermatology 07/14/21 Johnny Medrano Assigned Musculoskeletal 08/30/21 03/17/22 MD Ish Provider [facility] [address] [address] Erica Farrell Nurse Practitioner Cardiovascular Disease 09/09/21 ARLENE Guidry OIL DISTRIBUTOR TENDER [address] [facility] [address] [place], [place] [address] Teresita Bean Pharmacist Pharmacist 09/24/21 09/29/21 [facility] [address] [facility] [place] [address] Tavia Wyatt, Assigned Surgical 11/29/21 MD Provider Diana Desir, Assigned MTM Pharmacist 01/02/22 03/26/22 [facility] [address] [place], [place] [phone] Rich Barrett Physician Ophthalmology 01/21/22 Gerson Reyes MD [address] [address] Neil Kent MD MD Dermatology 02/24/[address] [place] [address] Roney Story, Assigned Musculoskeletal 03/20/22 DPM Provider [address] [facility] [address] [place] [address] Eriac Farrell Assigned Heart and 04/03/22 ARLENE Guidry OIL DISTRIBUTOR TENDER Vascular Provider [address] [place] [address] Diana Desir, Assigned MTM Pharmacist 04/07/22 [facility] [address] [place], [place] [address] documented as of this encounter
--- OUTSIDE RECORDS SUMMARY | 2022-04-28 01:22 | XMS_ITS | Encounter Summary ---
:2000 Author Organization [place] Address [address] [place] [address]. [place] [address] Care Team Providers Name Role Phone Oumar Lita Unavailable Unavailable Rakesh Cid PA-C Unavailable [phone] Marija Edgar APRN [facility] Primary Care Provider [phone] [facility] Unavailable + Reason for Referral Consultation (Routine) - Closed Specialty Diagnoses / Procedures Referred By Contact Refer red To Contact Diagnoses History of seizure Marija Edgar APRN [facility] and [address] [place] [address] [place] [address] [place] [address] Phone: Fax: Referral ID Status Reason Start Date Expiration Date Visits Requ ested Visits Authorized [id number] Closed 05/16/2020 05/16/2021 1 1 ET DUPLICATING 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 Reason for Visit Reason Onset Date Comments Medication Refill 05/15/2020 Encounter Details Date Type Department Care Team Description 05/15/2020 Telephone [facility] Marija Edgar, Medication Refill [place] ARL[place] [address] [address] [phone] (Wo rk) Social History Tobacco Use Types [...] How often do you attend amish or jew services? Never 09/22/2021 Do you [...] with No / Unsure 05/12/2020 9:03 AM OFFSET DUPLICATING 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 someone who was confirmed or suspected to have Coronavirus / COVID-19? documented as of this encounter Miscellaneous Notes Telephone Encounter - Jerome Ferrell RN - 05/16/2020 2:44 PM CST Patient returned call, given provider message below, Gamadort message sent to patient with referral contact information. Jerome Joe RN, BSN ET DUPLICATING 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 Telephone Encounter - Asiya Reddy RN - 05/16/2020 2:28 PM CST L/M to call. Asiya Reddy RN ET DUPLICATING 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 Telephone Encounter - Marija Edgar APRN CNP - 05/16/2020 9:42 AM OFFSET DUPLICATING 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 I have sent in a refill of zonisamimde 200 mg two times per day x 1 month. I have also placed a referral for a new Neurology clinic. She will need to establish for ongoing care. Thank you Marija Edgar APRN CNP on 05/16/2020 at 9:43 AM ET DUPLICATING 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 Telephone Encounter - Natasha Luis RN - 05/15/2020 3:[address] Schmidt office calls, confirms pt message, last appointment 1.5 years ago, pt has outstanding bill, they asked pt to set up payment plan with business office in September 2019, pt declined, they provided 2 months of medication refill informing pt needs f/u appointment since last visit 1.5 years ago, pt declined, pt did talk to them recently, aware not will have to see another neurologist or have primary take over, routed to , can discuss further at appointment next week Next 5 appointments (look out 90 days) May 19, 2020 3:00 PM (Arrive by 2:35 PM) Annual Wellness Visit with Marija Edgar APRN CNP [facility] [address] [place] [phone] Jul 16, 2020 9:45 AM Telephone Visit with Alexis Vazquez PsyD [facility] ([facility]) [address] [place] [phone] Jul 16, 2020 10:15 AM Telephone Visit with Pricila Amaya DO [facility] ([facility]) [address] [place] [phone] Natasha Luis RN, BSN Message handled by CLINIC NURSE. ET DUPLICATING 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 Telephone Encounter - Natasha Luis RN - 05/15/2020 3:23 PM CST Called neurology office, LM for Dr Yusuf's home care companion to call back to update, may speak to any clinic RN Natasha Luis RN, BSN Message handled by CLINIC NURSE. ET DUPLICATING 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 Telephone Encounter - Marija Edgar APRN CNP - 05/15/2020 2:40 PM OFFSET DUPLICATING 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 Triage: Please call Neuro clinic to understand if it is accurate information that they will not refill givenher outstanding balance. I am able to refill temporarily, however, she needs ongoing care and labs through Neurology. Thank you Marija Edgar APRN CNP on 05/15/2020 at 2:40 PM ET DUPLICATING 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 Telephone Encounter - Debbie Hdez MA - 05/15/2020 1:19 PM CST Pt called stating that she currently cannot get her epilepsy medication prescribed by her neurologist because she has an outstanding bill. She stated she spoke to her neurologist and they will not prescribe her medication until she pays the bill in full. The medication she needs is zonisamide 100mg. The pharmacy she prefers is [facility] in [place] on [address]. Debbie Hdez MA on 05/15/2020 at 1:39 PM ET DUPLICATING 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 documented in this encounter Plan of Treatment Upcoming Encounters Date Type Specialty Care Team Description 04/28/2022 Office Visit Family Practice Anthony Doe PA-C [address] [place], [place] [phone] (Wo rk) 05/03/2022 Office Visit Dermatology Neil Kent M D [address] [place], [place] [address] (Wo rk) 05/05/2022 Office Visit Optometry Yeny David, OD [address] [facility] [address] [place], [place] [phone] (Wo rk) 05/11/2022 Virtual Visit Pharm D Diana Desir , [facility] [address] [place], [place] [phone] (Wo rk) 05/14/2022 Office Visit Cardiology Livan Sharif MD [address], [facility] [address] [place] [address] (Wo rk) 05/31/2022 Office Visit Family Practice Valery Veronica PA-C [address] [place], [place] [address] (Wo rk) Scheduled Referrals Name Type Priority Associated Diagnoses Order S chedule NEUROLOGY ADULT REFERRAL Referral Routine History of seizu re Ordered: 05/16/2020 documented as of this encounter Visit Diagnoses Diagnosis History of seizure - Primary documented in this encounter Additional Health Concerns Assessment Noted Time PHQ-9 Depression Total Score: 12 03/27/2020 2:40 PM CD T documented as of this encounter Care Teams Boiler Repair Supervisor Relationship Specialty Start Date End Date Marija Edgar APRN PCP - General Nurse Practitioner 04/30/20 UNDERGROUND MINING SECTION FOREMAN [address] [place] [address] Lita Oseguera Personal Advocate & 02/28/20 Liaison (PAL) Rakesh Cid Assigned PCP 03/02/20 06/07/20 ROVERTO Landers [address] [place] [address] Chanelle Mccann Assigned OBGYN Provider 05/02/20 05/09/21 [place] [address] [address] [place], [facility] [address] [place] [address] documented as of this encounter
--- OUTSIDE RECORDS SUMMARY | 2022-04-28 01:22 | XMS_ITS | Encounter Summary ---
:2000 Author Organization [place] Address [address] [place] [address] Care Team Providers Name Role Phone OumarJackyLita Unavailable Unavailable Rakesh Cid PA-C Unavailable [phone] Marija Edgar APRN ELECTRONIC WARFARE OFFICER Primary Care Provider [phone] Chanelle Mccann APRN CN Unavailable + Encounter Details Date Type Department Care Team Description 05/12/2020 Travel Social History Tobacco Use Types Packs/Day [...] How often do you attend catholic or moravian services? Never 09/22/2021 Do you [...] or slept in a long-term (including now)? Sex Assigned at Date Recorded Female 03/02/2021 5:45 PM CDT COVID-19 Exposure Response Date Recorded In the last month, have you been in contact with No / Unsure 05/12/2020 9:03 AM AUTO TECH someone who was confirmed or suspected to have Coronavirus / COVID-19? documented as of this encounter Plan of Treatment Upcoming Encounters Date Type Specialty Care Team Description 04/28/2022 Office Visit Family Practice Anthony Doe PAUcheC [address] [place] [address] (Wo rk) 05/03/2022 Office Visit Dermatology Neil Kent M D [address] [place] [address] (Wo rk) 05/05/2022 Office Visit Optometry Yeny David, OD [address] [facility] [address] [place] [id number] (Wo rk) 05/11/2022 Virtual Visit Pharm Diana Eckert , [facility] [address] [place], [place] [address] (Wo rk) 05/14/2022 Office Visit Cardiology Livan Sharif MD [address] [facility] [address] [place], [place] [address] (Wo rk) 05/31/2022 Office Visit Family Practice Valery Veronica , PAUcheC [address] [place], [place] [address] (Wo rk) documented as of this encounter Visit Diagnoses Not on filedocumented in this encounter Additional Health Concerns Assessment Noted Time PHQ-9 Depression Total Score: 12 03/27/2020 2:40 PM CD T documented as of this encounter Care Teams Dull Coat Mill Operator Relationship Specialty Start Date End Date Marija Edgar APRN PCP - General Nurse Practitioner 04/30/20 ELECTRONIC WARFARE OFFICER [address] [place], [place] [phone] Lita Oseguera Personal Advocate & 02/28/20 Liaison (PAL) Rakesh Cid Assigned PCP 03/02/20 06/07/20 ROVERTO Landers [address] [place], [place] [phone] Chanelle Mccann Assigned OBGYN Provider 05/02/20 05/09/21 ARLENE Mooney [facility] [address] [address] [address] [place] [address] documented as of this encounter
--- OUTSIDE RECORDS SUMMARY | 2022-04-28 01:22 | XMS_ITS | Encounter Summary ---
:2000 Author Organization [place] Address [address] [place] [address] Care Team Providers Name Role Phone OumarJackyLita Unavailable Unavailable Rakesh Cid PA-C Unavailable [phone] Marija Edgar APRN CONTRACT SPECIALIST Primary Care Provider [phone] Chanelle Mccann APRN CN Unavailable + Encounter Details Date Type Department Care Team Description 05/28/2020 Travel Social History Tobacco Use Types Packs/Day [...] How often do you attend buddhist or advent services? Never 09/22/2021 Do you [...] with No / Unsure 05/28/2020 3:17 PM SKILLS TRAINER someone who was confirmed or suspected to have Coronavirus / COVID-19? documented as of this encounter Plan of Treatment Upcoming Encounters Date Type Specialty Care Team Description 04/28/2022 Office Visit Family Practice Anthony Doe PAUcheC [address] [place] [address] (Wo rk) 05/03/2022 Office Visit Dermatology Neil Kent M D [address] [place] [address] (Wo rk) 05/05/2022 Office Visit Optometry Yeny David, OD [address] [facility] [address] [place] [phone] (Wo rk) 05/11/2022 Virtual Visit Pharm Diana Eckert , [facility] [address] [place], [place] [address] (Wo rk) 05/14/2022 Office Visit Cardiology Livan Sharif MD [address] [place] [address] [place], [place] [address] (Wo rk) 05/31/2022 Office Visit Family Practice Valery Veronica , PAUcheC [address] [place], [place] [address] (Wo rk) documented as of this encounter Visit Diagnoses Not on filedocumented in this encounter Additional Health Concerns Assessment Noted Time PHQ-9 Depression Total Score: 6 08/28/2020 7:05 AM SKILLS TRAINER documented as of this encounter Care Teams Drywall Metal Stud Worker Relationship Specialty Start Date End Date Marija Edgar APRN PCP - General Nurse Practitioner 04/30/20 CONTRACT SPECIALIST [address] [place], [place] [phone] Lita Oseguera Personal Advocate & 02/28/20 Liaison (PAL) Rakesh Cid Assigned PCP 03/02/20 06/07/20 ROVERTO Landers [address] [place], [place] [phone] Chanelle Mccann Assigned OBGYN Provider 05/02/20 05/09/21 ARLENE Mooney [facility] [address] [facility] [address] [place], [place] [address] documented as of this encounter
--- OUTSIDE RECORDS SUMMARY | 2022-04-28 01:22 | XMS_ITS | Encounter Summary ---
:2000 Author Organization [place] Address [facility] [place] [address] Care Team Providers Name Role Phone Lita Oseguera Unavailable Unavailable Rakesh Cid PA-C Unavailable [phone] Marija Edgar APRN NITROGLYCERIN NEUTRALIZER Primary Care Provider [phone] Chanelle Mccann [facility] ARLENE [facility] Unavailable + Reason for Referral Care Coordination (Routine) - Closed Specialty Diagnoses / Procedures Referred By Contact Refer red To Contact Diagnoses Other specified counseling Marija Edgar APRN CNP [address] [place], [place] [address] Referral ID Status Reason Start Date Expiration Date Visits Requ ested Visits Authorized [id number] Closed 05/27/2020 05/27/2021 1 1 ICK WORKER Encounter Details Date Type Department Care Team Description 05/27/2020 Orders Only M [facility] Care Marija Edgar O ther specified Coordination RETAIL ASSET PROTECTION SPECIALIST NITROGLYCERIN NEUTRALIZER counseling [address] [place] [address] [place] [address] [phone] Social History Tobacco Use Types Packs/Day Years [...] How often do you attend yazdanism or adventism services? Never 09/22/2021 Do you [...] or slept in a halfway (including now)? Sex Assigned at Date Recorded Female 03/02/2021 5:45 PM CDT COVID-19 Exposure Response Date Recorded In the last month, have you been in contact with No / Unsure 05/12/2020 9:03 AM DERRICK WORKER someone who was confirmed or suspected to have Coronavirus / COVID-19? documented as of this encounter Plan of Treatment Upcoming Encounters Date Type Specialty Care Team Description 04/28/2022 Office Visit Family Practice Anthony Doe PA-C [address] [place] [address] (Jefferson carlson) 05/03/2022 Office Visit Dermatology Neil Kent M D [address] [place], [place] [address] (Jefferson carlson) 05/05/2022 Office Visit Optometry Frankie Nataliemohamud Garcia, OD [address] [facility] [place] [address] (Wo rk) 05/11/2022 Virtual Visit Pharm D Diana Desir , [facility] [address] [place] [address] (Wo rk) 05/14/2022 Office Visit Cardiology Livan Sharif MD [address] [facility] [address] [place], [place] [address] (Wo rk) 05/31/2022 Office Visit Family Practice Valery Veronica PA-C [address] [place] [address] (Wo rk) Scheduled Referrals Name Type Priority Associated Diagnoses Order S chedule Referral to CC - CHW Referral Routine Other specified coun seling Ordered: 05/27/2020 documented as of this encounter Visit Diagnoses Diagnosis Other specified counseling documented in this encounter Additional Health Concerns Assessment Noted Time PHQ-9 Depression Total Score: 6 08/28/2020 7:05 AM DERRICK WORKER documented as of this encounter Care Teams Patroller Relationship Specialty Start Date End Date Marija Edgar APRN PCP - General Nurse Practitioner 04/30/20 NITROGLYCERIN NEUTRALIZER [address] [place] [address] Lita Oseguera Personal Advocate & 02/28/20 Liaison (PAL) Rakesh Cid Assigned PCP 03/02/20 06/07/20 ROVERTO Landers [address] [place] [address] Chanelle Mccann Assigned OBGYN Provider 05/02/20 05/09/21 [place] [address] [address] [address] [place] [address] documented as of this encounter
--- OUTSIDE RECORDS SUMMARY | 2022-04-28 01:22 | XMS_ITS | Encounter Summary ---
:2000 Author Organization [place] Address [address] [place] [address] Care Team Providers Name Role Phone OumarJackyLita Unavailable Unavailable Rakesh Cid PA-C Unavailable [phone] Marija Edgar APRN SDC TEACHER Primary Care Provider [phone] Chanelle Mccann APRN CN Unavailable + Encounter Details Date Type Department Care Team Description 05/27/2020 Travel Social History Tobacco Use Types Packs/Day [...] How often do you attend jainism or episcopal services? Never 09/22/2021 Do you [...] been in contact with No / Unsure 05/27/2020 3:32 PM INTERNATIONAL MARKETING INTERN someone who was confirmed or suspected to have Coronavirus / COVID-19? documented as of this encounter Plan of Treatment Upcoming Encounters Date Type Specialty Care Team Description 04/28/2022 Office Visit Family Practice Anthony Doe PAUcheC [address] [place] [address] (Wo rk) 05/03/2022 Office Visit Dermatology Neil Kent M D 500 [place] [address] (Wo rk) 05/05/2022 Office Visit Optometry Yeny David, OD [address] [facility] [address] [place] [phone] (Wo rk) 05/11/2022 Virtual Visit Pharm Diana Eckert , [facility] [address] [place], [place] [address] (Wo rk) 05/14/2022 Office Visit Cardiology Livan Sharif MD [address] [facility] [address] [place], [place] [address] (Wo rk) 05/31/2022 Office Visit Family Practice Valery Veronica , PAUcheC [address] [place], [place] [address] (Wo rk) documented as of this encounter Visit Diagnoses Not on filedocumented in this encounter Additional Health Concerns Assessment Noted Time PHQ-9 Depression Total Score: 6 08/28/2020 7:05 AM INTERNATIONAL MARKETING INTERN documented as of this encounter Care Teams Auto Damage Estimator Relationship Specialty Start Date End Date Marija Edgar APRN PCP - General Nurse Practitioner 04/30/20 SDC TEACHER [address] [place], [place] [phone] Lita Oseguera Personal Advocate & 02/28/20 Liaison (PAL) Rakesh Cid Assigned PCP 03/02/20 06/07/20 ROVERTO Landers [address] [place], [place] [phone] Chanelle Mccann Assigned OBGYN Provider 05/02/20 05/09/21 ARLENE Mooney [facility] [address] [address] [address] [place], [place] [address] documented as of this encounter
--- OUTSIDE RECORDS SUMMARY | 2022-04-28 01:23 | XMS_ITS | Encounter Summary ---
:2000 Author Organization [facility] Address [address] [place] [address]. [place] [address] Care Team Providers Name Role Phone Rakesh Cid PA-C Unavailable [phone] Rakesh Cid PA-C Primary Care Provider Reason for Referral Mental Health Outpatient (Routine) - Closed Specialty Diagnoses / Procedures Referred By Contact Refer red To Contact Diagnoses Anxiety Rakesh Cid PA-C [address] [place] [address] Referral ID Status Reason Start Date Expiration Date Visits Requ ested Visits Authorized [id number] Closed 02/21/2020 02/20/2021 1 1 Reason for Visit Reason Comments Anxiety Depression Encounter Details Date Type Department Care Team Description 02/21/2020 Virtual Visit [facility] Rakesh Cid ty (Primary Dx); [facility] [place] ROVERTO Landers Seizure (H) [address] [facility] [address] [place] [id number] Social History Tobacco Use Types Packs/Day Years Used Date Smoking Tobacco: Former Cigarettes 1 Quit : 12/07/2019 Other Smokeless Tobacco: Never Comments: Vaping Alcohol Use Standard Drinks/Week Comments Not Currently [...] How often do you attend pentecostalism or yarsanism services? Never 09/22/2021 Do you [...] been in contact with No / Unsure 02/22/2020 11:41 AM CDT someone who was confirmed or suspected to have Coronavirus / COVID-19? documented as of this encounter [facility] Rakesh Ballard PA-C - 02/21/2020 1:30 PM CDT Kim Johnson is a 19 year old female who is being evaluated [...] you like to obtain your AVS? MyChart If you are dropped from the video visit, the video invite should be resent to: Text to cell phone: [phone] Will anyone else be joining your video visit? No Subjective Kim Johnson is a 19 year old female who presents today via video visit for the following health issues: HPI Depression and Anxiety Follow-Up ?? How are you doing with your depression since your last visit? No change ?? How are you doing with your anxiety since your last visit? Worsened ?? Are you having other symptoms that might be associated with depression or anxiety? Yes: numb, heart rasing, headaches ?? Have you had a significant life event? Relationship Concerns and Job Concerns ?? Do you have any concerns with your use of alcohol or other drugs? No Social History Tobacco Use ??? Smoking status: Former Smoker Packs/day: 1.00 Types: Other Last attempt to quit: 12/07/2019 Years since quittin.2 ??? Smokeless tobacco: Never Used ??? Tobacco comment: Vaping Substance Use Topics ??? Alcohol use: Not Currently ??? Drug use: No PHQ 05/02/2019 09/11/2019 02/21/2020 PHQ-9 Total Score 4 1 11 Q9: Thoughts of better off /self-harm past 2 weeks Not at all Not at all Not at all KALYN-7 SCORE 05/02/2019 09/11/2019 02/21/2020 Total Score 4 (minimal anxiety) - - Total Score 4 3 17 Last PHQ-9 02/21/2020 1. Little interest or pleasure in doing things 1 2. Feeling down, depressed, or hopeless 1 3. Trouble falling or staying asleep, or sleeping too much 2 4. Feeling tired or having little energy 2 5. Poor appetite or overeating 3 6. Feeling bad about yourself 0 7. Trouble concentrating 0 8. Moving slowly or restless 2 Q9: Thoughts of better off /self-harm past 2 weeks 0 PHQ-9 Total Score 11 Difficulty at work, home, or with people Very difficult KALYN-7 02/21/2020 1. Feeling nervous, anxious, or on edge 3 2. Not being able to stop or control worrying 3 3. Worrying too much about different things 3 4. Trouble relaxing 1 5. Being so restless that it is hard to sit still 3 6. Becoming easily annoyed or irritable 1 7. Feeling afraid, as if something awful might happen 3 KALYN-7 Total Score 17 If you checked any problems, how difficult have they made it for you to do your work, take care of things at home, or get along with other people? Extremely difficult Suicide Assessment Five-step Evaluation and Treatment (SAFE-T) ?? How many servings of fruits and vegetables do you eat daily? 2-3 ?? On average, how many sweetened beverages do you drink each day (Examples: soda, juice, sweet tea,etc. Do NOT count diet or artificially sweetened beverages)? 2 ?? How many days per week do you exercise enough to make your heart beat faster? 3 or less ?? How many minutes a day do you exercise enough to make your heart beat faster? 9 or less ?? How many days per week do you miss taking your medication? 0 Video Start Time: 1:36 PM Kim is calling in today via video call to discuss anxiety and depression. Anxiety is horrible. Causing issues with people/family/friends around her. Ended up in a panic attack due to some physical symptoms she was feeling (pains under her arm pit and in her chest). It is usually her health that causes her anxiety. She has epilepsy which causes her anxiety also about her health- worries about medications interfering with each other. Has not used propranolol yet, she is worried about using it. Her mom has ativan that she gave her once (0.5mg) that took even and hour to calm her down. Kim says she has been through trauma in her past that she may need to work through. Wondering about Genesight testing. She wrote in last week regarding this: Soham Cameron, Hope your doing well. I have an appointment set up to see you in person February 27 but I still feel like my anxiety isn't the best. Still worrying about everything, including my health. I just had a panic attack the other day and that wasn't fun at all. Some could be from stress but the extra worrying never stops. So the lady at the front end java developer told me to message you instead of having to pay for twoappointments. I was kind of thinking maybe I need to be on two anxiety medications, something that mixes well with sertraline. You boosted me up to 150 but it only helped a tiny bit. Thank you for taking your time out to help me. Kim Johnson Seizure d/o- went down to 2 per day rather than the prescribed 4 per day. Has not seen Neurologist in a while now. The medication was making her not eat as much so she decreased the dose. Reviewed and updated as needed this visit by Provider Review of Systems Constitutional, HEENT, cardiovascular, pulmonary, [...] Mentation and speech appropriate for age. PSYCH: mentation appears normal, affect normal/bright and anxious Diagnostic Test Results: none Assessment & Plan 1. Seizure (H) We did discuss adding gabapentin for additional anxiety relief. It could also be of benefit for the pain in her chest that she seems to feel on a daily basis that causes her so much anxiety. She has not followed up with her neurologist for a while. She will try to contact them in regards to use of gabapentin and get back to me. 2. Anxiety Try hydroxyzine for added anxiety relief TID prn. Referral for therapy as well. - hydrOXYzine (ATARAX) 25 MG tablet; Take 1 tablet (25 mg) by mouth 3 times daily as needed for anxiety Dispense: 90 tablet; Refill: 0 - MENTAL HEALTH REFERRAL - Adult; Outpatient Treatment; Individual/Couples/Family/Group Therapy/Health Psychology; [facility] [place] [facility] ; We will contact you to schedule the ap pointment or please call with any questions BMI: Estimated body mass index is 30.15 kg/m?? as calculated from the following: Height as of 09/11/19: 1.664 m (5' 5.5). Weight as of 12/14/19: 83.5 kg (184 lb). Return in about 1 month (around 03/23/2020) for depression/anxiety med check. Rakesh Cid PA-C [facility] Video-Visit Details Type of service: Video Visit Video End Time:2:15 PM Originating Location (pt. Location): Home Distant Location (provider location): [facility] Platform used for Video Visit: Doximity Lita Oseguera - 02/21/2020 1:30 PM CDT Msg left on Pt's phone regarding MA only visit for gene site testing. Pt instructed to call clinic back in the morning after 745. I will attempt to reach in the morning again. Hilda Oseguera A-EMT Clinic Health Guide Violet Jeffrey - 02/21/2020 1:30 PM CDT Pt called back, couldn't get a hold of anyone. Please call back when you see this. Violet Jeffrey Patient Wire Stretcher documented in this encounter Plan of Treatment Upcoming Encounters Date Type Specialty Care Team Description 04/28/2022 Office Visit Family Practice Anthony Doe PA-C [address] [place] [address] (Wo rk) 05/03/2022 Office Visit Dermatology Neil Kent M D [address] [place] [id number] (Wo rk) 05/05/2022 Office Visit Optometry Yeny David, OD [address] [facility] [place] [id number] (Wo rk) 05/11/2022 Virtual Visit Pharm D Diana Desir , [facility] [address] [place], [place] [phone] (Wo rk) 05/14/2022 Office Visit Cardiology Livan Sharif MD [address], [address] [place] [id number] (Wo rk) 05/31/2022 Office Visit Family Practice Valery Veronica , PA-C [address] [place], [place] [id number] (Wo rk) Scheduled Referrals Name Type Priority Associated Diagnoses Order [facility] REFERRAL - Referral Routine Anxiety Ord ered: 02/21/2020 Adult; Outpatient Treatment; Individual/Couples/Family/ Group Therapy/Health Psychology; [facility] [place] [facility] ; We will contact you to schedule the appointment or please call with any questions documented as of this encounter Visit Diagnoses Diagnosis Anxiety - Primary Anxiety state, unspecified Seizure (H) Other convulsions documented in this encounter Additional Health Concerns Assessment Noted Time PHQ-9 Depression Total Score: 11 02/21/2020 1:14 PM CD T documented as of this encounter Care Teams Urogynecology Physician Relationship Specialty Start Date End Date Rakesh Cid, PCP - General Physician Dock Operations Supervisor - 05/14/19 04/29/20 PA-C Medical Rakesh Cid, Assigned PCP 05/06/19 [facility] [address] [place] [place] [id number] documented as of this encounter
--- OUTSIDE RECORDS SUMMARY | 2022-04-28 01:23 | XMS_ITS | Encounter Summary ---
:2000 Author Organization [facility] Address [address] [place] [address]. [place] [address] Care Team Providers Name Role Phone Rakesh Cid PA-C Primary Care Provider [phone] Lita Oseguera Unavailable Unavailable Rakesh Cid PA-C Unavailable [phone] Lita Oseguera Unavailable Unavailable Reason for Visit Reason Comments Urgent Care Urinary Problem Possible UTI x1 week- dark c olored urine, frequency, hesitancy, urgency, dysuria, blood when wiping - had period -4 days ago Encounter Details Date Type Department Care Team Description 04/13/2020 Office Visit [facility] Yolande Mora, Dysuria (Primary Dx); Urgent Care Tiago woods MD Vaginal discharge; [address] BV (bacterial vaginosis); [place], [place] [address] Rib pain on right side [id number] [place], [place] [phone] [address] Social History Tobacco Use Types Packs/Day Years [...] How often do you attend latter-day or hoahaoism services? Never 09/22/2021 Do you belong to any clubs or organizations such as No 09/22/2021 latter-day groups, unions, fra1Lay or athletic groups, or school groups? How [...] been in contact with No / Unsure 04/13/2020 1:42 PM CDT someone who was confirmed or suspected to have Coronavirus / COVID-19? documented as of this encounter Last Filed Vital Signs Vital Sign Reading Time Taken Comments Blood Pressure 100/68 04/13/2020 1:48 PM CDT Pulse 80 04/13/2020 1:48 PM CDT Temperature 36.4 ??C (97.6 ??F) 04/13/2020 1:48 PM CDT Respiratory Rate - - Oxygen Saturation 100% 04/13/2020 1:48 PM CDT Inhaled Oxygen Concentration - - Weight 87.5 kg (193 lb) 04/13/2020 1:48 PM CDT Height - - Body Mass Index 32.12 03/27/2020 4:08 PM CDT documented in this encounter Patient Instructions Patient InstructionsYolande Mora MD - 04/13/2020 1:45 PM CDT Images from the original note were not included. Patient Education Bacterial Vaginosis You have a vaginal infection called bacterial vaginosis (BV). Both good and bad bacteria are presentin a healthy vagina. BV occurs when these bacteria get out of balance. The number of bad bacteria increase. And the number of good bacteria decrease. Although BV is associated with sexual activity, it is not a sexually transmitted disease. BV may or may not cause symptoms. If symptoms do occur, they can include: ?? Thin, cabrera, milky-white, or sometimes green discharge ?? Unpleasant odor or ???fishy?? smell ?? Itching, burning, or pain in or around the vagina It is not known what causes BV, but certain factors can make the problem more likely. This can include: ?? Douching ?? Having sex with a new partner ?? Having sex with more than one partner BV will sometimes go away on its own. But treatment is usually recommended. This is because untreated BV can increase the risk of more serious health problems such as: ?? Pelvic inflammatory disease (PID) ?? delivery (giving to a baby early if you???re ) ?? HIV and certain other sexually transmitted diseases (STDs) ?? Infection after surgery on the reproductive organs Home care General care ?? BV is most often treated with medicines called antibiotics. These may be given as pills or as a vaginal cream.??If antibiotics are prescribed, be sure to use them exactly as directed. Also, be sure to complete all of the medicine, even if your symptoms go away. ?? Don't douche or having sex during treatment. ?? If you have sex with a female partner, ask your healthcare provider if she should also be treated. Prevention ?? Don't douche. ?? Don't have sex. If you do have sex, then take steps to lower your risk: ? Use condoms when having sex. ? Limit the number of sexual partners you have. Follow-up care Follow up with your healthcare provider, or as advised. When to seek medical advice Call your healthcare provider right away if: ?? You have a fever of??100.4??F (38??C)??or higher, or as directed by your provider. ?? Your symptoms worsen, or they don???t go away within a few days of starting treatment. ?? You have new pain in the lower belly??or pelvic region. ?? You have side effects that bother you or a reaction to the pills or cream you???re prescribed. ?? You or any partners you have sex with have new symptoms, such as a rash, joint pain, or sores. Date Last Reviewed: 04/10/2017 ?? [id number] [employer]. [address] [place] [address]. All rights reserved. This information is not intended as a substitute for professional medical care. Always follow your healthcare professional's instructions. documented in this encounter Progress Notes Yolande Mora MD - 04/13/2020 1:45 PM CDT Chief Complaint Patient presents with ??? Urgent Care ??? Urinary Problem Possible UTI x1 week- dark colored urine, frequency, hesitancy, urgency, dysuria, blood when wiping- had period -4 days ago SUBJECTIVE: Kim Johnson is a 19 year old female who presents today for a possible UTI. Symptoms of dysuria and frequency have been going on for 1week(s). Hematuria no. sudden onsetand moderate. There is no history of fever, chills, nausea or vomiting. No history of vaginal discharge. This patient does not have a history of urinary tract infections. Patient denies rigors, flank pain, temperature > 101 degrees F. 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 Pain does not radiate anywhere else Past Medical History: Diagnosis Date ??? Anxiety ??? Chronic kidney disease ??? Depressive disorder ??? Gastroesophageal reflux disease ??? Seizure (H) 05/02/2019 Current Outpatient Medications Medication Sig Dispense Refill ??? ferrous sulfate (FEROSUL) 325 (65 Fe) MG tablet Take 325 mg by mouth ??? hydrOXYzine (ATARAX) 25 MG tablet Take 1 tablet (25 mg) by mouth 3 times daily as needed for anxiety 90 tablet 0 ??? metroNIDAZOLE (FLAGYL) 500 MG tablet Take 1 tablet (500 mg) by mouth 2 times daily for 7 days 14tablet 0 ??? omeprazole (PRILOSEC) [address] capsule Take 1 capsule (40 mg) by mouth daily 30 capsule 0 ??? propranolol (INDERAL) 20 MG tablet Take 1 tablet (20 mg) by mouth 3 times daily as needed (palpitations, anxiety) 90 tablet 1 ??? sertraline (ZOLOFT) 100 MG tablet Take 1.5 tablets (150 mg) by mouth daily 135 tablet 1 ??? zonisamide (ZONEGRAN) 100 MG capsule Take 2 capsules (200 mg) by mouth 2 times daily 60 capsule ??? naproxen (NAPROSYN) 500 MG tablet Take 500 mg by mouth ??? norethindrone (MICRONOR) 0.35 MG tablet Take 1 tablet (0.35 mg) by mouth daily 84 tablet 3 ??? tiZANidine (ZANAFLEX) 4 MG tablet Take 1 tablet (4 mg) by mouth nightly as needed for muscle spasms 30 tablet 0 ??? triamcinolone (KENALOG) 0.1 % external cream Apply topically 2 times daily 80 g 1 Social History Tobacco Use ??? Smoking status: Former Smoker Packs/day: 1.00 Types: Other Quit date: 12/07/2019 Years since quittin.3 ??? Smokeless tobacco: Never Used ??? Tobacco comment: Vaping Substance Use Topics ??? Alcohol use: Not Currently ROS: 10 point ROS of systems including Constitutional, Eyes, Respiratory, Cardiovascular, Gastroenterology, ntegumentary, Muscularskeletal, Psychiatric were all negative except for pertinent positives notedin my HPI OBJECTIVE: BP 100/68 (BP Location: Right arm, Patient Position: Chair, Cuff Size: Adult Large) Pulse 80 Temp 97.6 ??F (36.4 ??C) (Tympanic) Wt 87.5 kg (193 lb) SpO2 100% BMI 32.12 kg/m?? GENERAL APPEARANCE: healthy, alert and no distress RESP: lungs clear to auscultation - no rales, rhonchi or wheezes CV: regular rates and rhythm, normal S1 S2, no murmur noted Chest-Chest is clear, no wheezing or rales. Normal symmetric air entry throughout both lung jo. No chest wall deformities or tenderness. MSK- there is tenderness along the right lower rib area ABDOMEN: soft, nontender, no HSM or masses and bowel sounds normal BACK: No CVA tenderness SKIN: no suspicious lesions or rashes PSYCH: mentation appears normal ASSESSMENT: Lower, uncomplicated urinary tract infection. Kim was seen today for urgent care and urinary problem. Diagnoses and all orders for this visit: Dysuria - *UA reflex to Microscopic and Culture ([place] and [facility] (except [place] and [place]) - Urine Culture Aerobic Bacterial Vaginal discharge - Wet prep BV (bacterial vaginosis) - metroNIDAZOLE (FLAGYL) 500 MG tablet; Take 1 tablet (500 mg) by mouth 2 times daily for 7 days Rib pain on right side Differential diagnosis UTI/urethritis/yeast infection/BV/STD/MSK pain PLAN: As per ordered above Drink plenty of fluids. Prevention and treatment of UTI's discussed.Signs and symptoms of pyelonephritis mentioned. Discussed with pt about the findings Advised to avoid alcohol when taking the flagyl Follow up with primary care physician if not improving Pt understood and agreed with plan Discussed with pt to watch for any worsening signs such as SOB or chest heaviness Yolande Mora MD documented in this encounter Plan of Treatment Upcoming Encounters Date Type Specialty Care Team Description 04/28/2022 Office Visit Family Practice Anthony Doe, PAUcheC [address] [place], [place] [phone] ([place]) 05/03/2022 Office Visit Dermatology Neil Kent M D [address] [place], [place] [phone] ([place]) 05/05/2022 Office Visit Optometry Yeny David, OD [address] [place] [id number] ([place]) 05/11/2022 Virtual Visit Pharm D Diana Desir , [facility] [address] [place] [address] (Wo rk) 05/14/2022 Office Visit Cardiology Livan Sharif MD [address] [place] [address] (Wo rk) 05/31/2022 Office Visit Family Practice Valery Veronica , PAUcheC [address] [place], [place] [phone] (Wo rk) documented as of this encounter Procedures Procedure Name Priority Date/Time Associated Comments Diagnosis URINE CULTURE Routine 04/13/2020 2:01 PM Dysuria Results for this CDT procedure are i n the results section. WET PREPARATION Routine 04/13/2020 1:57 PM Vaginal discharge R esults for this CDT procedure are i n the results section. UA MACROSCOPIC WITH Routine 04/13/2020 1:37 PM Dysuria Re sults for this REFLEX TO MICROSCOPIC CDT proced ure are in AND CULTURE the results section. documented in this encounter Results Urine Culture Aerobic Bacterial (04/13/2020 2:01 PM CDT) Component Value Ref [facility] Method Time Signature Specimen Vagina INFECTIOUS Description [facility] Culture Micro <10,000 colonies/mL 04/14/2020 INFEC TIOUS mixed urogenital krystin 1:25 PM CDT DISEA SES Susceptibility testing not routinely done [facility] Specimen Anatomical Collection Method Collection Time Receive d Time (Source) Location / / Volume Laterality Specimen from 04/13/2020 2:01 PM 04/13/20 20 2:06 vagina CDT PM CDT (specimen) Yolande Mora MD LAB - MICRO GENERAL ORDERABL ES Performing Organization Address City/State/ZIP Code Phon e Number [facility] [address] [facility] [address] [address] LABORATORY, [facility] (ABNORMAL) Wet prep (04/13/2020 1:57 PM CDT) [facility] Method Time Signature Specimen Vagina [facility] Description [facility] Wet Prep No Trichomonas 04/13/2020 [facility] seen 2:16 PM CDT [facility] Wet Prep No yeast seen 04/13/2020 [facility] 2:16 PM CDT [facility] [place] Wet Prep Moderate 04/13/2020 [place] Clue cells seen 2:16 PM CDT [facility] [place] Wet Prep Few 04/13/2020 [place] WBC'S seen 2:16 PM CDT [facility] [place] Specimen Anatomical Collection Method Collection Time Receive d Time (Source) Location / / Volume Laterality Specimen from 04/13/2020 1:57 PM 04/13/20 20 2:02 vagina CDT PM CDT (specimen) Yolande Mora MD LAB - MICRO GENERAL ORDERABL ES Performing Organization Address City/State/ZIP Code Phon e Number [facility] [id number] [place] [address] *UA reflex to Microscopic and Culture ([place] and [facility] (except [place] and [place]) (04/13/2020 1:37 PM CDT) [facility] Method Time Signature Color Urine Yellow 04/13/2020 [place] 1:54 PM CDT [facility] [place] Appearance Urine Clear 04/13/2020 [place] 1:54 PM CDT [facility] [place] Glucose Urine Negative NEG^Negat 04/13/2020 [place] shyam mg/dL 1:54 PM CDT [facility] [place] Bilirubin Urine Negative NEG^Negat 04/13/2020 [place] shyam 1:54 PM CDT [facility] [place] Ketones Urine Negative NEG^Negat 04/13/2020 [place] shyam mg/dL 1:54 PM CDT [facility] [place] Specific Snowflake 1.025 1.003 - 04/13/2020 [place] Urine 1.035 1:54 PM CDT [facility] [place] Blood Urine Negative NEG^Negat 04/13/2020 [place] shyam 1:54 PM CDT [facility] [place] pH Urine 5.5 5.0 - 7.0 04/13/2020 [place] pH 1:54 PM CDT [facility] [place] Protein Albumin Negative NEG^Negat 04/13/2020 [place] Urine shyam mg/dL 1:54 PM CDT [facility] [place] Urobilinogen 0.2 0.2 - 1.0 04/13/2020 [place] Urine EU/dL 1:54 PM CDT [facility] [place] Nitrite Urine Negative NEG^Negat 04/13/2020 [place] shyam 1:54 PM CDT [facility] [place] Leukocyte Negative NEG^Negat 04/13/2020 [place] Esterase Urine shyam 1:54 PM CDT [facility] Source Midstream 04/13/2020 [place] Urine 2:35 PM CDT [facility] Comment: CORRECTED ON 04/13 AT 1435: PRE VIOUSLY REPORTED Nasopharyngeal Specimen (Source) Anatomical Collection Method Collection Time Re ceived Time Location / / Volume Laterality Examination of 04/13/2020 1:37 04/13/2020 1:44 midstream urine PM CDT PM CDT specimen (procedure) Yolande Mora MD LAB - URINE ORDERABLES Performing Organization Address City/State/ZIP Code Phon e Number [facility] [id number] [place] [address] documented in this encounter Visit Diagnoses Diagnosis Dysuria - Primary Vaginal discharge Leukorrhea, not specified as infective BV (bacterial vaginosis) Vaginitis and vulvovaginitis, unspecifie d Rib pain on right side Chest pain, unspecified documented in this encounter Additional Health Concerns Assessment Noted Time PHQ-9 Depression Total Score: 12 03/27/2020 2:40 PM CD T documented as of this encounter Care Teams In Service Coordinator Relationship Specialty Start Date End Date Rakesh Cid PCP - General Physician Medical Library Assistant - 05/14/19 1 [facility] Lita Oseguera Personal Advocate & 02/28/20 Liaison (PAL) Rakesh Cid Assigned PCP 03/02/20 06/07/20 [facility] [address] [place] [address] Lita Oseguera Personal Advocate & 04/07/20 Liaison (PAL) documented as of this encounter
--- OUTSIDE RECORDS SUMMARY | 2022-04-28 01:23 | XMS_ITS | Encounter Summary ---
:2000 Author Organization [facility] Address [address] [place] [address]. [place] [address] Care Team Providers Name Role Phone Rakesh Cid PA-C Primary Care Provider [phone] Lita Oseguera Unavailable Unavailable Rakesh Cid PA-C Unavailable [phone] Reason for Referral Consultation (Routine) - Closed Specialty Diagnoses / Procedures Referred By Contact Refer red To Contact Diagnoses Seizure (H) Anthony Doe PA-C [address] NEUROLOGY [place], [place] [address] [address] [place] [address] Phone: Fax: Referral ID Status Reason Start Date Expiration Date Visits Requ ested Visits Authorized [id number] Closed 03/27/2020 03/27/2021 1 1 Reason for Visit Reason Onset Date Comments Heartburn Flu Shot Imm/Inj 03/27/2020 Flu Shot Encounter Details Date Type Department Care Team Description 03/27/2020 Office Visit [facility] Anthony Doe, Epigas tric pain (Primary Dx); [facility] Need for prophylactic vaccination and in oculation against influenza; [id number] [place] [id number] [place] [address] Seizure (H) [place] [phone] Social History Tobacco Use Types Packs/Day Years [...] How often do you attend gnosticist or muslim services? Never 09/22/2021 Do you [...] been in contact with No / Unsure 03/27/2020 2:11 PM CDT someone who was confirmed or suspected to have Coronavirus / COVID-19? documented as of this encounter Last Filed Vital Signs Vital Sign Reading Time Taken Comments Blood Pressure 135/74 03/27/2020 4:08 PM CDT Pulse 92 03/27/2020 4:08 PM CDT Temperature 36.6 ??C (97.9 ??F) 03/27/2020 4:08 PM CDT Respiratory Rate 20 03/27/2020 4:08 PM CDT Oxygen Saturation 97% 03/27/2020 4:08 PM CDT Inhaled Oxygen Concentration - - Weight 79.4 kg (175 lb) 03/27/2020 4:08 PM CDT Height 165.1 cm (5' 5) 03/27/2020 4:08 PM CDT Body Mass Index 29.12 03/27/2020 4:08 PM CDT documented in this encounter Patient Instructions Patient InstructionsAnthony Doe PA-C - 03/27/2020 2:40 PM CDT Images from the original note were not included. Take omeprazole once a day. We will send results to your MyChart. If labs are normal, and symptoms not improving with medication, I will refer you to GI for endoscopy. Patient Education Lifestyle Changes for Controlling??GERD When you have GERD, stomach acid feels as if it???s backing up toward your mouth. Whether or not youtake medicine to control your GERD, your symptoms can often be improved with lifestyle changes. Talkto your healthcare provider about the following suggestions. These suggestions may help you get relief from your symptoms. Raise your head Reflux is more likely to strike when you???re lying down flat, because stomach fluid can flow backward more easily. Raising the head of your bed??4 to 6 inches can help. To do this: ?? Slide blocks or books under the legs at the head of your bed. Or, place a wedge under the mattress. Many [employer] can make a suitable wedge for you. The wedge should run from your waist to the top of your head. ?? Don???t just prop your head on several pillows. This increases pressure on your stomach. It can make GERD worse. Watch your eating habits Certain foods may increase the acid in your stomach or relax the lower esophageal sphincter. This makes GERD more likely. It???s best to avoid the following if they cause you symptoms: ?? Coffee, tea, and carbonated drinks (with and without caffeine) ?? Fatty, fried, or spicy food ?? Mint, chocolate, onions, and tomatoes ?? Peppermint ?? Any other foods that seem to irritate your stomach or cause you pain Relieve the pressure Tips include the following: ?? Eat smaller meals, even if you have to eat more often. ?? Don???t lie down right after you eat. Wait a few hours for your stomach to empty. ?? Avoid tight belts and tight-fitting clothes. ?? Lose excess weight. Tobacco and alcohol Avoid smoking tobacco and drinking alcohol. They can make GERD symptoms worse. Date Last Reviewed: 01/09/2016 ?? [id number] [employer]. [address] [place] [address]. All rights reserved. This information is not intended as a substitute for professional medical care. Always follow your healthcare professional's instructions. documented in this encounter Progress Notes Anthony Doe PA-C - 03/27/2020 2:40 PM CDT Images from the original note were not included. Subjective Kim Johnson is a 19 year old female who presents to clinic today for the following health issues: HPI GERD/Heartburn Onset/Duration: couple months Description: pain in upper stomach especially bad after eating or drinking Intensity: 7/10-worst; 1/10-best Progression of Symptoms: worsening Accompanying Signs & Symptoms: Does it feel like food gets stuck or trouble swallowing: no Nausea: no Vomiting (bloody?): no Abdominal Pain: YES Black-Tarry stools: no Bloody stools: no Bloating for past 6 months and gassy History: Previous similar episodes: no Previous ulcers: unknown Precipitating factors: Caffeine use: YES Alcohol use: no NSAID/Aspirin use: no Tobacco use: no Worse with fatty foods and spicy foods. Alleviating factors: None Therapies tried and outcome: Lifestyle changes: None Medications: antacids- tums helps some Review of Systems Constitutional, HEENT, cardiovascular, pulmonary, GI, , musculoskeletal, neuro, skin, endocrine and psych systems are negative, except as otherwise noted. Objective BP 135/74 (BP Location: Right arm, Patient Position: Sitting, Cuff Size: Adult Regular) Pulse 92 Temp 97.9 ??F (36.6 ??C) (Oral) Resp 20 Ht 1.651 m (5' 5) Wt 79.4 kg (175 lb) SpO2 97% BMI 29.12 kg/m?? Body mass index is 29.12 kg/m??. Physical Exam GENERAL: healthy, alert and no distress EYES: Eyes grossly normal to inspection, PERRL and conjunctivae and sclerae normal RESP: lungs clear to auscultation - no rales, rhonchi or wheezes CV: regular rate and rhythm, normal S1 S2, no S3 or S4, no murmur, click or rub, no peripheral edemaand peripheral pulses strong ABDOMEN: Mildly tender to palpation all across upper abdomen but mostly epigastric area. No guardingor rebound tenderness. Otherwise soft, nontender, no hepatosplenomegaly, no masses and bowel sounds normal MS: no gross musculoskeletal defects noted, no edema SKIN: no suspicious lesions or rashes NEURO: Normal strength and tone, mentation intact and speech normal PSYCH: mentation appears normal, affect normal/bright Labs pending Assessment & Plan Epigastric pain Rule out pancreatitis. Likely GERD or gastritis. Try omeprazole while awaiting h pylori. If labs areall normal and not improving after 2-3 weeks in omeprazole, refer to GI for endoscopy. - Amylase - Lipase - Hepatic panel - Helicobacter pylori Antigen Stool - omeprazole (PRILOSEC) [address] capsule Dispense: 30 capsule; Refill: 0 Need for prophylactic vaccination and inoculation against influenza - INFLUENZA VACCINE IM > 6 MONTHS VALENT IIV4 [72522] - Vaccine Administration, Initial [25157] Seizure Referred to neurology to discuss if gabapentin would be ok to add to help her anxiety and depressionper suggestion from primary care provider Rakesh Cid. Depression Screening Follow Up PHQ 03/27/2020 PHQ-9 Total Score 12 Q9: Thoughts of better off /self-harm past 2 weeks Several days Last PHQ-9 03/27/2020 1. Little interest or pleasure in doing things 1 2. Feeling down, depressed, or hopeless 3 3. Trouble falling or staying asleep, or sleeping too much 2 4. Feeling tired or having little energy 1 5. Poor appetite or overeating 3 6. Feeling bad about yourself 1 7. Trouble concentrating 0 8. Moving slowly or restless 0 Q9: Thoughts of better off /self-harm past 2 weeks 1 PHQ-9 Total Score 12 Difficulty at work, home, or with people Very difficult No flowsheet data found. Follow Up Follow Up Actions Taken Crisis resource information provided in the After Visit Summary Discussed with patient. She has no plans or intentions and notes that it was 1 day that was really bad. Discussed the following ways the patient can remain in a safe environment: be around others Patient Instructions Take omeprazole once a day. We will send results to your MyChart. If labs are normal, and symptoms not improving with medication, I will refer you to GI for endoscopy. Patient Education Lifestyle Changes for Controlling??GERD When you have GERD, stomach acid feels as if it???s backing up toward your mouth. Whether or not youtake medicine to control your GERD, your symptoms can often be improved with lifestyle changes. Talkto your healthcare provider about the following suggestions. These suggestions may help you get relief from your symptoms. Raise your head Reflux is more likely to strike when you???re lying down flat, because stomach fluid can flow backward more easily. Raising the head of your bed??4 to 6 inches can help. To do this: ?? Slide blocks or books under the legs at the head of your bed. Or, place a wedge under the mattress. Many [employer] can make a suitable wedge for you. The wedge should run from your waist to the top of your head. ?? Don???t just prop your head on several pillows. This increases pressure on your stomach. It can make GERD worse. Watch your eating habits Certain foods may increase the acid in your stomach or relax the lower esophageal sphincter. This makes GERD more likely. It???s best to avoid the following if they cause you symptoms: ?? Coffee, tea, and carbonated drinks (with and without caffeine) ?? Fatty, fried, or spicy food ?? Mint, chocolate, onions, and tomatoes ?? Peppermint ?? Any other foods that seem to irritate your stomach or cause you pain Relieve the pressure Tips include the following: ?? Eat smaller meals, even if you have to eat more often. ?? Don???t lie down right after you eat. Wait a few hours for your stomach to empty. ?? Avoid tight belts and tight-fitting clothes. ?? Lose excess weight. Tobacco and alcohol Avoid smoking tobacco and drinking alcohol. They can make GERD symptoms worse. Date Last Reviewed: 01/09/2016 ?? [id number] [employer]. [address] [place] [address], [place] [address]. All rights reserved. This information is not intended as a substitute for professional medical care. Always follow your healthcare professional's instructions. No follow-ups on file. Anthony Doe PA-C [facility] documented in this encounter Plan of Treatment Upcoming Encounters Date Type Specialty Care Team Description 04/28/2022 Office Visit Family [facility] Anthony Doe PA-C [address] [place], [place] [id number] (Wo rk) 05/03/2022 Office Visit Dermatology Neil Kent M D [address] [place] [address] (Wo rk) 05/05/2022 Office Visit Optometry Yeny David, OD [address] [place], [place] [id number] (Wo rk) 05/11/2022 Virtual Visit Pharm Diana Eckert , [facility] [address] [place], [place] [address] (Wo rk) 05/14/2022 Office Visit Cardiology Livan Sharif MD [address] , [facility] [address] [place], [place] [phone] (Wo rk) 05/31/2022 Office Visit Family Practice Valery Veronica PA-C [address] [place], [place] [phone] (Wo rk) Scheduled Referrals Name Type Priority Associated Diagnoses Order S chedule NEUROLOGY ADULT REFERRAL Referral Routine Seizure (H) Ord ered: 03/27/2020 documented as of this encounter Procedures Procedure Name Priority Date/Time Associated Diagnosis Comme nts LIPASE Routine 03/27/2020 3:26 PM Epigastric pain Result s for this CDT procedure are i n the results section. HEPATIC FUNCTION Routine 03/27/2020 3:26 PM Epigastric pain Re sults for this PANEL CDT procedure are i n the results section. AMYLASE Routine 03/27/2020 3:26 PM Epigastric pain Result s for this CDT procedure are i n the results section. documented in this encounter Results Hepatic panel (03/27/2020 3:26 PM CDT) Analysis Performed At Patho logist Time Signature Bilirubin Direct <0.1 0.0 - 0.2 03/28/2020 [place] mg/dL 8:10 AM CDT [facility] Bilirubin Total 0.3 0.2 - 1.3 03/28/2020 [place] mg/dL 8:10 AM CDT [facility] Albumin 3.9 3.4 - 5.0 03/28/2020 [place] g/dL 8:10 AM CDT [facility] Protein Total 7.6 6.8 - 8.8 03/28/2020 [place] g/dL 8:10 AM CDT [facility] Alkaline 53 40 - 150 03/28/2020 [place] Phosphatase U/L 8:10 AM CDT [facility] ALT 25 0 - 50 U/L 03/28/2020 [place] 8:10 AM CDT [facility] AST 11 0 - 35 U/L 03/28/2020 [place] 8:10 AM CDT [facility] Specimen Anatomical Collection Method Collection Time Receive d Time (Source) Location / / Volume Laterality Blood specimen 03/27/2020 3:26 PM 020 3:27 (specimen) CDT PM CDT Anthony Doe PA-C LAB - BLOOD ORDERABLES Performing Organization Address City/State/ZIP Code Phon e Number [facility] [address] [place] [address] Lipase (03/27/2020 3:26 PM CDT) athologist Signature Lipase 135 73 - 393 03/28/2020 [facility] U/L 2:45 PM CDT [facility] Specimen Anatomical Collection Method Collection Time Receive d Time (Source) Location / / Volume Laterality Blood specimen 03/27/2020 3:26 PM 020 3:27 (specimen) CDT PM CDT Anthony Doe PA-C LAB - BLOOD ORDERABLES Performing Organization Address City/State/ZIP Code Phon e Number [facility] [address] [place] [address] [facility] Amylase (03/27/2020 3:26 PM CDT) P athologist Signature Amylase 47 30 - 110 03/28/2020 [facility] U/L 8:[address] [facility] Specimen Anatomical Collection Method Collection Time Receive d Time (Source) Location / / Volume Laterality Blood specimen 03/27/2020 3:26 PM 020 3:27 (specimen) CDT PM CDT Anthony Doe PA-C LAB - BLOOD ORDERABLES Performing Organization Address City/State/ZIP Code Phon e Number [facility] [address] [place] [address] documented in this encounter Visit Diagnoses Diagnosis Epigastric pain - Primary Abdominal pain, epigastric Need for prophylactic vaccination and in oculation against influenza Seizure (H) Other convulsions documented in this encounter Additional Health Concerns Assessment Noted Time PHQ-9 Depression Total Score: 12 03/27/2020 2:40 PM CD T documented as of this encounter Care Teams Interactive Designer Relationship Specialty Start Date End Date Rakesh Cid PCP - General Physician Prn Physical Therapist - 05/14/19 1 [facility] Lita Oseguera Personal Advocate & 02/28/20 Liaison (PAL) Rakesh Cid Assigned PCP 03/02/20 06/07/20 [facility] [address] [place] [address] documented as of this encounter
--- OUTSIDE RECORDS SUMMARY | 2022-04-28 01:23 | XMS_ITS | Encounter Summary ---
:2000 Author Organization [facility] Address [address] [place] [address]. [place] [address] Care Team Providers Name Role Phone Rakesh Cid PA-C Primary Care Provider [phone] Lita Oseguera Unavailable Unavailable Rakesh Cid PA-C Unavailable [phone] Reason for Visit Reason Onset Date Comments Lab Result Notice 03/03/2020 Gene Site Testing Encounter Details Date Type Department Care Team Description 03/03/2020 Telephone [facility] Rakesh Cid Lab Re sult Notice Clinic [place] [facility] (Gene Site Testing ) [address] [place] [address] [place], [place] [phone] (Wo rk) [address] [phone] Social History Tobacco Use Types Packs/Day Years [...] How often do you attend restoration or baptism services? Never 09/22/2021 Do you [...] this encounter Miscellaneous Notes Telephone Encounter - Audrey Degroot - 03/03/2020 5:16 PM CDT General Call: Who is calling: Kim Johnson - PT Reason for Call: Pt inquiring on status of Gene Site Testing results What are your questions or concerns: Pt calling to get results from gene site testing Date of last appointment with provider: 02/27/2020 Okay to leave a detailed message:Yes at Cell number on file: Telephone Information: documented in this encounter Plan of Treatment Upcoming Encounters Date Type Specialty Care Team Description 04/28/2022 Office Visit Family Practice Anthony Doe, [place] [address] [place] [address] (Wo rk) 05/03/2022 Office Visit Dermatology Neil Kent M D [address] [place] [address] (Wo rk) 05/05/2022 Office Visit Optometry Yeny David, OD [address] [facility] [place] [place] [address] (Wo rk) 05/11/2022 Virtual Visit Pharm D Diana Desir , [facility] [address] [place] [address] (Wo rk) 05/14/2022 Office Visit Cardiology Livan Sharif MD [address], [place] [place], [place] [address] (Wo rk) 05/31/2022 Office Visit Family Practice Valery Veronica PA-C [address] [place], [place] [phone] (Wo rk) documented as of this encounter Visit Diagnoses Not on filedocumented in this encounter Additional Health Concerns Assessment Noted Time PHQ-9 Depression Total Score: 11 02/21/2020 1:14 PM CD T documented as of this encounter Care Teams Monitor Technician Relationship Specialty Start Date End Date Rakesh Cid PCP - General Physician Hearing Aid Consultant - 05/14/19 1 [facility] Lita Oseguera Personal Advocate & 02/28/20 Liaison (PAL) Rakesh Cid Assigned PCP 03/02/20 06/07/20 [facility] [address] [place] [address] documented as of this encounter
--- OUTSIDE RECORDS SUMMARY | 2022-04-28 01:23 | XMS_ITS | Encounter Summary ---
:2000 Author Organization [facility] Address [address] [place] [address]. [place] [address] Care Team Providers Name Role Phone Oumar Lita Unavailable Unavailable Rakesh Cid PA-C Unavailable [phone] Marija Edgar APRN, CNP Primary Care Provider [phone] Reason for Visit Reason Comments UTI Encounter Details Date Type Department Care Team Description 04/30/2020 Office Visit [facility] Anthony Doe Dysuri a (Primary Dx); [facility] [place] Iron deficiency anemia, unspecified iron deficiency anemia type; [address] [place] [address] [place] [address] [phone] Social History Tobacco Use Types Packs/Day Years [...] How often do you attend judaism or restoration services? Never 09/22/2021 Do you [...] Sign Reading Time Taken Comments Blood Pressure 112/65 04/30/2020 3:24 PM CDT Pulse 87 04/30/2020 3:24 PM CDT Temperature 36.8 ??C (98.3 ??F) 04/30/2020 3:24 PM CDT Respiratory Rate 19 04/30/2020 3:24 PM CDT Oxygen Saturation 100% 04/30/2020 3:24 PM CDT Inhaled Oxygen Concentration - - Weight 86.2 kg (190 lb) 04/30/2020 3:24 PM CDT Height 165.1 cm (5' 5) 04/30/2020 3:24 PM CDT Body Mass Index 31.62 04/30/2020 3:24 PM CDT documented in this encounter Patient Instructions Patient InstructionsAnthony Doe PA-C - 04/30/2020 3:10 PM CDT Drink lots of water. Continue omeprazole daily. [facility] Follow-up for a physical with Marija Edgar. documented in this encounter Progress Notes Anthony Doe PA-C - 04/30/2020 3:10 PM CDT Subjective Kim Johnson is a 20 year old female who presents to clinic today for the following health issues: HPI Genitourinary - Female Onset/Duration: hasn't stopped completely; smell returned 2 days prior Description: Painful urination (Dysuria): YES- Frequency: YES- Blood in urine (Hematuria): YES- occasionally when wiping Delay in urine (Hesitency): YES- Intensity: severe Progression of Symptoms: waxing and waning Accompanying Signs & Symptoms: Fever/chills: no Flank pain: YES- Nausea and vomiting: no Vaginal symptoms: discharge, odor, itching and abnormal vaginal bleeding Abdominal/Pelvic Pain: YES- History: History of frequent UTI???s: YES- History of kidney stones: no Sexually Active: YES- Possibility of : No Precipitating or alleviating factors: None Therapies tried and outcome: prescribed meds, drinks a lot of water Review of Systems Constitutional, HEENT, cardiovascular, pulmonary, gi and gu systems are negative, except as otherwise noted. Objective BP 112/65 Pulse 87 Temp 98.3 ??F (36.8 ??C) (Oral) Resp 19 Ht 1.651 m (5' 5) Wt 86.2 kg (190 lb) SpO2 100% BMI 31.62 kg/m?? Body mass index is 31.62 kg/m??. Physical Exam GENERAL: healthy, alert and [...] and tone, mentation intact and speech normal BACK: no CVA tenderness PSYCH: mentation appears normal, affect normal/bright Labs pending. Assessment & Plan Dysuria UA shows mild dehydration. Push fluids. Will check BMP to ensure no kidney cause of dark urine. - *UA reflex to Microscopic and Culture ([facility] (except [place] and [place]) - Wet prep - Basic metabolic panel (Ca, Cl, CO2, Creat, Gluc, K, Na, BUN) Iron deficiency anemia, unspecified iron deficiency anemia type Re-check labs after taking iron for about 1 month. - CBC with platelets - Iron and iron binding capacity - Ferritin Epigastric pain Refilled omeprazole as it is working well. - omeprazole (PRILOSEC) [address] capsule Dispense: 90 capsule; Refill: 3 Patient Instructions Drink lots of water. Continue omeprazole daily. I will send test results to your MyChart. Follow-up for a physical with Marija Edgar. Return in about 1 month (around 05/31/2020) for Physical Exam- with Marija ([facility]). Anthony Doe PA-C [facility] documented in this encounter Plan of Treatment Upcoming Encounters Date Type Specialty Care Team Description 04/28/2022 Office Visit Family Practice Anthony Doe PA-C [address] [place], [place] [phone] (Jefferson carlson) 05/03/2022 Office Visit Dermatology Neil Kent M D [address] [place], [place] [address] (Jefferson rk) 05/05/2022 Office Visit Optometry Yeny David, OD [address] [facility] [place] [phone] (Jefferson carlson) 05/11/2022 Virtual Visit Pharm Diana Eckert , [facility] [address] [place] [address] (Jefferson carlson) 05/14/2022 Office Visit Cardiology Livan Sharif MD [address] [place] [address] (Wo rk) 05/31/2022 Office Visit Family Practice Valery Veronica , [place] [address] [place] [address] (Wo rk) documented as of this encounter Procedures Procedure Name Priority Date/Time Associated Diagnosis Comme nts IRON AND IRON Routine 04/30/2020 4:13 PM Iron deficiency Resul ts for this BINDING CAPACITY CDT anemia, unspecified proc edure are in iron deficiency the results anemia type section. FERRITIN Routine 04/30/2020 4:13 PM Iron deficiency Result s for this CDT anemia, unspecified procedur e are in iron deficiency the results anemia type section. BASIC METABOLIC Routine 04/30/2020 4:13 PM Dysuria Result s for this PANEL CDT procedure are i n the results section. CBC WITH PLATELETS Routine 04/30/2020 4:13 PM Iron deficiency Results for this CDT anemia, unspecified procedur e are in iron deficiency the results anemia type section. WET PREPARATION Routine 04/30/2020 3:09 PM Dysuria Result s for this CDT procedure are i n the results section. UA MACROSCOPIC WITH Routine 04/30/2020 3:08 PM Dysuria Re sults for this REFLEX TO CDT procedure are i n MICROSCOPIC AND the results CULTURE section. documented in this encounter Results Basic metabolic panel (Ca, Cl, CO2, Creat, Gluc, K, Na, BUN) (04/30/2020 4:13 PM CDT) athologist Signature Sodium 140 133 - 144 05/01/2020 [facility] mmol/L 4:09 PM CDT [facility] Potassium 3.9 3.4 - 5.3 05/01/2020 [facility] mmol/L 4:09 PM CDT [facility] Chloride 109 94 - 109 05/01/2020 [facility] mmol/L 4:09 PM CDT [facility] Carbon Dioxide 24 20 - 32 05/01/2020 [facility] mmol/L 4:49 PM CDT [facility] Anion Gap 7 3 - 14 05/01/2020 [facility] mmol/L 4:49 PM CDT [facility] Glucose 80 70 - 99 05/01/2020 [facility] mg/dL 4:49 PM CDT [facility] Comment: Non Fasting Urea Nitrogen 12 7 - 30 mg/dL 05/01/2020 4:49 PM CDT [facility] Creatinine 0.74 0.52 - 1.04 mg/dL 05/01/2020 4:49 PM CD T [facility] GFR Estimate >90 >60 05/01/2020 4:49 PM CDT [facility] mL/min/{1.73_m2} [place] Comment: Non GFR Calc Starting 06/27/2018, serum creatinine ba sed estimated GFR (eGFR) will be calculated using the Chronic Kidney Dise [facility] Epidemiology Collaboration (CKD-EPI) equation. GFR Estimate If >90 >60 mL/min/{1.73_m2} 05/01/2020 4: 49 PM [facility] Black T [facility] Comment: GFR Calc Starting 06/27/2018, serum creatinine ba sed estimated GFR (eGFR) will be calculated using the Chronic Kidney Dise ase Epidemiology Collaboration (CKD-EPI) equation. Calcium 9.5 8.5 - 10.1 mg/dL 05/01/2020 4:49 PM CDT [facility] Specimen Anatomical Collection Method Collection Time Receive d Time (Source) Location / / Volume Laterality Blood specimen 04/30/2020 4:13 PM 020 4:14 (specimen) CDT PM CDT Anthony Doe PA-C LAB - BLOOD ORDERABLES Performing Organization Address City/State/ZIP Code Phon e Number [facility] [address] [place] [address] Ferritin (04/30/2020 4:13 PM CDT) P athologist Signature Ferritin 17 12 - 150 05/01/2020 [facility] ng/mL 4:55 PM CDT [facility] Specimen Anatomical Collection Method Collection Time Receive d Time (Source) Location / / Volume Laterality Blood specimen 04/30/2020 4:13 PM 020 4:14 (specimen) CDT PM CDT Anthony Doe PA-C LAB - BLOOD ORDERABLES Performing Organization Address City/[facility]/ZIP Code Phon e Number [facility] [address] [place] [address] Iron and iron binding capacity (04/30/2020 4:13 PM CDT) athologist Signature Iron 56 35 - 180 05/01/[facility] ug/dL 4:52 PM CDT [facility] Iron Binding 343 240 - 430 05/01/2020 [facility] Cap ug/dL 4:53 PM CDT [facility] Iron Saturation 16 15 - 46 % 05/01/2020 [facility] Index 4:53 PM CDT [facility] Specimen Anatomical Collection Method Collection Time Receive d Time (Source) Location / / Volume Laterality Blood specimen 04/30/2020 4:13 PM 020 4:14 (specimen) CDT PM CDT Anthony Doe PA-C LAB - BLOOD ORDERABLES Performing Organization Address City/State/ZIP Code Phon e Number [facility] [address] [place] [address] [facility] [address] [place], [place] [address] [facility] [address] [place] [address], U SA [phone] (ABNORMAL) CBC with platelets (04/30/2020 4:13 PM CDT) athologist Signature WBC 7.0 4.0 - 11.0 04/30/2020 [facility] 10e9/L 4:26 PM CDT [facility] RBC Count 4.59 3.8 - 5.2 04/30/2020 [facility] 10e12/L 4:26 PM CDT [facility] Hemoglobin 12.1 11.7 - 15.7 04/30/2020 [facility] g/dL 4:26 PM CDT [facility] Hematocrit 37.0 35.0 - 47.0 04/30/2020 [facility] % 4:26 PM CDT [facility] MCV 81 78 - 100 fl 04/30/2020 [facility] 4:26 PM CDT [facility] MCH 26.4 (L) 26.5 - 33.0 04/30/2020 [facility] pg 4:26 PM CDT [facility] Comment: Reviewed: OK with previous MCHC 32.7 31.5 - 36.5 g/dL 04/30/2020 4:26 PM CDT [facility] RDW 13.2 10.0 - 15.0 % 04/30/2020 4:26 PM CDT [facility] Platelet Count 239 150 - 450 10e9/L 04/30/2020 4:26 PM CDT [facility] Specimen Anatomical Collection Method Collection Time Receive d Time (Source) Location / / Volume Laterality Blood specimen 04/30/2020 4:13 PM 020 4:14 (specimen) CDT PM CDT Anthony Doe PA-C LAB - BLOOD ORDERABLES Performing Organization Address City/[facility]/ZIP Code Phon e Number [facility] [address] [place], [place] [phone] Wet prep (04/30/2020 3:09 PM CDT) [facility] Method Time Signature Specimen Vagina [place] Description [facility] Wet Prep No yeast seen 04/30/2020 [facility] 3:20 PM CDT [facility] Wet Prep No clue cells 04/30/2020 [facility] seen 3:20 PM CDT [facility] Wet Prep No Trichomonas 04/30/2020 [facility] seen 3:20 PM CDT [facility] Wet Prep Rare 04/30/2020 [facility] WBC'S seen 3:20 PM CDT [facility] Specimen Anatomical Collection Method Collection Time Receive d Time (Source) Location / / Volume Laterality Specimen from 04/30/2020 3:09 PM 04/30/20 20 3:10 vagina CDT PM CDT (specimen) Anthony Doe PA-C LAB - MICRO GENERAL ORDERABL ES Performing Organization Address City/[facility]/ZIP Code Phon e Number [facility] [address] [place], [place] [phone] *UA reflex to Microscopic and Culture ([facility] (except [place] and [place]) (04/30/2020 3:08 PM CDT) [facility] gist Method Time Signature Color Urine Yellow 04/30/2020 [facility] 3:21 PM CDT [facility] Appearance Urine Clear 04/30/2020 [facility] 3:21 PM CDT [facility] Glucose Urine Negative NEG^Negat 04/30/2020 [facility] mg/dL 3:21 PM CDT [facility] Bilirubin Urine Negative NEG^Negat 04/30/2020 [facility]am 3:21 PM CDT [facility] Ketones Urine Negative NEG^Negat 04/30/2020 [facility] mg/dL 3:21 PM CDT [facility] Specific Gaylord >1.030 1.003 - 04/30/2020 [facility] Urine 1.035 3:21 PM CDT [facility] Blood Urine Negative NEG^Negat 04/30/2020 [facility] shyam 3:21 PM CDT [facility] pH Urine 5.5 5.0 - 7.0 04/30/2020 [facility] pH 3:21 PM CDT [facility] Protein Albumin Negative NEG^Negat 04/30/2020 [facility] Urine [facility]am mg/dL 3:21 PM CDT [facility] Urobilinogen 0.2 0.2 - 1.0 04/30/2020 [facility] Urine EU/dL 3:21 PM CDT [facility] Nitrite Urine Negative NEG^Negat 04/30/2020 [facility] 3:21 PM CDT [facility] Leukocyte Negative NEG^Negat 04/30/2020 [facility] Esterase Urine shyam 3:21 PM CDT [facility] Source Midstream 04/30/2020 [facility] Urine 3:09 PM CDT [facility] Specimen (Source) Anatomical Collection Method Collection Time Re ceived Time Location / / Volume Laterality Examination of 04/30/2020 3:08 04/30/2020 3:09 midstream urine PM CDT PM CDT specimen (procedure) Anthony Doe PA-C LAB - URINE ORDERABLES Performing Organization Address City/State/ZIP Code Phon e Number [facility] [address] [place] [address] documented in this encounter Visit Diagnoses Diagnosis Dysuria - Primary Iron deficiency anemia, unspecified iron deficiency anemia type Epigastric pain Abdominal pain, epigastric documented in this encounter Additional Health Concerns Assessment Noted Time PHQ-9 Depression Total Score: 12 03/27/2020 2:40 PM CD T documented as of this encounter Care Teams Reverse Engineer Relationship Specialty Start Date End Date Marija Edgar APRN PCP - General Nurse Practitioner 04/30/20 [employer] [address] [place] [address] Lita Oseguera Personal Advocate & 02/28/20 Liaison (PAL) Rakesh Cid Assigned PCP 03/02/20 06/07/20 [place]ers [address] [place] [address] documented as of this encounter
--- OUTSIDE RECORDS SUMMARY | 2022-04-28 01:23 | XMS_ITS | Encounter Summary ---
:2000 Author Organization [facility] Address [address] [place] [address]. [place] [address] Care Team Providers Name Role Phone Rakesh Cid PA-C Unavailable [phone] Rakesh Cid PA-C Primary Care Provider [phone] Reason for Visit Reason Onset Date Comments Referral 02/21/2020 [facility] Encounter Details Date Type Department Care Team Description 02/21/2020 Telephone [facility] Lizy, Clau ( Left [facility] appt) Addiction [address] [address] Social History Tobacco Use Types Packs/Day Years [...] often do you attend oriental orthodox or baptist services? Never 09/22/2021 Do you [...] have you been in contact with Yes 02/21/2020 1:10 PM CDT someone who was confirmed or suspected to have Coronavirus / COVID-19? documented as of this encounter Miscellaneous Notes Telephone Encounter - Pao Veloz - 02/21/2020 5:36 PM CDT Pt returned call at 530Kim stated a good time to get ahold of her would be after 12 tomorrow(Tuesday) documented in this encounter Plan of Treatment Upcoming Encounters Date Type Specialty Care Team Description 04/28/2022 Office Visit Family Practice Anthony Doe PA-C [address] [place], [place] [phone] (Wo rk) 05/03/2022 Office Visit Dermatology Neil Kent M D [address] [place] [phone] (Wo rk) 05/05/2022 Office Visit Optometry Yeny David, OD [address] [facility] [place] [phone] (Wo rk) 05/11/2022 Virtual Visit Pharm D Diana Desir , [facility] [address] [place], [place] [address] (Wo rk) 05/14/2022 Office Visit Cardiology Livan Sharif MD [address], [email or web address] [address] [place], [place] [phone] (Wo rk) 05/31/2022 Office Visit Family Practice Valery Veronica , [facility] [address] [place], [place] [phone] (Wo rk) documented as of this encounter Visit Diagnoses Not on filedocumented in this encounter Additional Health Concerns Assessment Noted Time PHQ-9 Depression Total Score: 11 02/21/2020 1:14 PM CD T documented as of this encounter Care Teams Forepart Laster Relationship Specialty Start Date End Date Rakesh Cid, PCP - General Physician Banquet Director - 05/14/19 04/29/20 [facility] Medical Rakesh Cid, Assigned PCP 05/06/19 [facility] [address] [place] [address] documented as of this encounter
--- OUTSIDE RECORDS SUMMARY | 2022-04-28 01:23 | XMS_ITS | Encounter Summary ---
:2000 Author Organization [facility] Address [address] [place] [address] Care Team Providers Name Role Phone Rakesh Cid PA-C Primary Care Provider [phone] Lita Oseguera Unavailable Unavailable Rakesh Cid PA-C Unavailable [phone] Lita Oseguera Unavailable Unavailable Encounter Details Date Type Department Care Team Description 04/13/2020 Travel Social History Tobacco Use Types Packs/Day [...] week 09/22/2021 How often do you attend confucianist or jain services? Never 09/22/2021 Do you belong to any clubs or organizations such as No 09/22/2021 confucianist groups, unions, fraternal or athletic groups, or [...] Office Visit Family Practice Anthony Doe, [facility] [address] [place] [address] (Wo rk) 05/03/2022 Office Visit Dermatology Neil Kent M D [address] [place] [address] (Wo rk) 05/05/2022 Office Visit Optometry Yeny David, OD [address] [facility] [address] [place], [place] [phone] (Wo rk) 05/11/2022 Virtual Visit Pharm D Diana Desir , [facility] [address] [place], [place] [address] (Wo rk) 05/14/2022 Office Visit Cardiology Livan Sharif MD [address] [facility] [address] [place], [place] [phone] (Wo rk) 05/31/2022 Office Visit Family Practice Valery Veronica , PA-C [address] [place] [address] (Wo rk) documented as of this encounter Visit Diagnoses Not on filedocumented in this encounter Additional Health Concerns Assessment Noted Time PHQ-9 Depression Total Score: 12 03/27/2020 2:40 PM CD T documented as of this encounter Care Teams Hospitality Director Relationship Specialty Start Date End Date Rakesh Cid PCP - General Physician Antisqueak Filler - 05/14/19 1 [place] Landers [facility] Lita Oseguera Personal Advocate & 02/28/20 Liaison (PAL) Rakesh Cid Assigned PCP 03/02/20 06/07/20 [place] Landers [address] [place] [address] Lita Oseguera Personal Advocate & 04/07/20 Liaison (PAL) documented as of this encounter
--- OUTSIDE RECORDS SUMMARY | 2022-04-28 01:23 | XMS_ITS | Encounter Summary ---
:2000 Author Organization [facility] [place] [facility] Address [address] [place] [address] Care Team Providers Name Role Phone Rakesh Cid PA-C Primary Care Provider [phone] Lita Oseguera Unavailable Unavailable Rakesh Cid PA-C Unavailable Encounter Details Date Type Department Care Team Description 03/27/2020 Travel Social History Tobacco Use Types Packs/Day [...] How often do you attend voodoo or moravian services? Never 09/22/2021 Do you [...] 04/28/2022 Office Visit Family Practice Anthony Doe PABaldo [address] [place] [address] (Wo rk) 05/03/2022 Office Visit Dermatology Neil Kent M D [address] [place], [place] [address] (Wo rk) 05/05/2022 Office Visit Optometry Yeny David, OD [address] [facility] [address] [place] [phone] (Wo rk) 05/11/2022 Virtual Visit Pharm D Diana Desir , [facility] [address] [place], [place] [address] (Wo rk) 05/14/2022 Office Visit Cardiology Livan Sharif MD [address] [facility] [address] [place], [place] [address] (Wo rk) 05/31/2022 Office Visit Family Practice Valery Veronica PAU[facility] [address] [place], [place] [phone] (Wo rk) documented as of this encounter Visit Diagnoses Not on filedocumented in this encounter Additional Health Concerns Assessment Noted Time PHQ-9 Depression Total Score: 12 03/27/2020 2:40 PM CD T documented as of this encounter Care Teams Theatre Instructor Relationship Specialty Start Date End Date Rakesh Cid PCP - General Physician Pot Firer - 05/14/19 1 [facility]ers Medical Lita Oseguera Personal Advocate & 02/28/20 Liaison (PAL) Rakesh Cid Assigned PCP 03/02/20 06/07/20 [place] Landers [address] [place] [address] documented as of this encounter
--- OUTSIDE RECORDS SUMMARY | 2022-04-28 01:23 | XMS_ITS | Encounter Summary ---
:2000 Author Organization [place] Address [address] [place] [address]. [place] [address] Care Team Providers Name Role Phone Rakesh Cid PA-C Unavailable [phone] Rakesh Cid PA-C Primary Care Provider Reason for Visit Diagnostic Imaging XR (Routine) - Closed Specialty Diagnoses / Procedures Referred By Contact Refer red To Contact Diagnoses Costochondral chest pain Rakesh Cid, Procedures XR Chest 2 Views [place] [address] [place] [address] Referral ID Status Reason Start Date Expiration Date Visits Requ ested Visits Authorized [id number] Closed 12/14/2019 12/13/2020 1 1 Encounter Details Date Type Department Care Team Description 12/14/2019 [facility] Rakesh Cid hondral chest Procedure [facility] [place] R[place]O Landers pain [address] [facility] [address] [place], [place] [address] [address] [place], [place] [phone] [address] Social History Tobacco Use Types Packs/Day [...] How often do you attend christianity or yazidism services? Never 09/22/2021 Do you [...] been in contact with No / Unsure 12/14/2019 10:19 AM CDT someone who was confirmed or suspected to have Coronavirus / COVID-19? documented as of this encounter Plan of Treatment Upcoming Encounters Date Type Specialty Care Team Description 04/28/2022 Office Visit Family Practice Anthony Doe PA-C [address] [place], [place] [phone] (Wo rk) 05/03/2022 Office Visit Dermatology Neil Kent M D [address] [place] [phone] (Wo rk) 05/05/2022 Office Visit Optometry Yeny David, OD [address] [facility] [place] [address] (Wo rk) 05/11/2022 Virtual Visit Pharm D Diana Desir , [facility] [address] [place] [address] (Wo rk) 05/14/2022 Office Visit Cardiology Livan Sharif MD [address], [facility] [address] [place], [place] [address] (Wo rk) 05/31/2022 Office Visit Family Practice Valery Veronica PA-C [address] [place], [place] [phone] (Wo rk) documented as of this encounter Procedures Procedure Name Priority Date/Time Associated Diagnosis Comme nts XR CHEST 2 VIEWS Routine 12/14/2019 11:[address] Results for this CDT pain procedure are i n the results section. documented in this encounter Results XR Chest 2 Views (12/14/2019 11:21 AM CDT) Anatomical Region Laterality Modality Chest Computed Radiography Specimen (Source) Anatomical Location Collection Method / Collectio n Time Received Time / Laterality Volume Impressions 12/14/2019 2:44 PM CDT IMPRESSION: No acute airspace infiltrate. LETTY CAPUTO MD Narrative 12/14/2019 2:44 PM CDT CHEST TWO VIEWS ?? 12/14/2019 11:21 AM HISTORY: Costochondral chest pain. COMPARISON: Chest x-ray on 09/29/2018. Procedure Note Letty Caputo MD - 12/14/2019Forma tting of this note might be different from the original. CHEST TWO VIEWS 12/14/2019 11:21 AM HISTORY: Costochondral chest pain. COMPARISON: Chest x-ray on 09/29/2018. IMPRESSION: No acute airspace infiltrate . LETTY CAPUTO MD Rakesh Cid PA-C IMG DIAGNOSTIC IMAGING ORDER GARY documented in this encounter Visit Diagnoses Diagnosis Costochondral chest pain Painful respiration documented in this encounter Additional Health Concerns Assessment Noted Time PHQ-9 Depression Total Score: 1 09/11/2019 1:42 PM FLEET COORDINATOR documented as of this encounter Care Teams Marble Cutter Relationship Specialty Start Date End Date Rakesh Cid, PCP - General Physician Advanced Manager - 05/14/19 04/29/20 [facility] Rakesh Cid, Assigned PCP 05/06/19 [facility] [address] [facility] [place] [address] documented as of this encounter
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
--- OUTSIDE RECORDS SUMMARY | 2022-04-28 01:23 | XMS_ITS | Encounter Summary ---
:2000 Author Organization [facility] Address [address] [place] [address] Care Team Providers Name Role Phone Rakesh Cid PA-C Unavailable [phone] Rakesh Cid PA-C Primary Care Provider [phone] Encounter Details Date Type Department Care Team Description 02/22/2020 Travel Social History Tobacco Use Types Packs/Day [...] How often do you attend christianity or muslim services? Never 09/22/2021 Do you [...] or slept in a intermediate (including now)? Sex Assigned at Date Recorded [...] Office Visit Family Practice Anthony Doe, PABaldo [address] [place], [place] [phone] (Wo rk) 05/03/2022 Office Visit Dermatology Neil Kent M D [address] [place], [place] [phone] (Wo rk) 05/05/2022 Office Visit Optometry Yeny David, OD [address] [facility] [address] [place] [phone] (Wo rk) 05/11/2022 Virtual Visit Pharm D Diana Desir , [facility] [address] [place], [place] [address] (Wo rk) 05/14/2022 Office Visit Cardiology Livan Sharif MD [address] [facility] [address] [place], [place] [address] (Wo rk) 05/31/2022 Office Visit Family Practice Valery Veronica PABaldo [address] [place], [place] [phone] (Wo rk) documented as of this encounter Visit Diagnoses Not on filedocumented in this encounter Additional Health Concerns Assessment Noted Time PHQ-9 Depression Total Score: 11 02/21/2020 1:14 PM CD T documented as of this encounter Care Teams Centerpuncher Relationship Specialty Start Date End Date Rakesh Cid, PCP - General Physician Apprentice Electrician - 05/14/19 04/29/20 PA-C Medical Rakesh Cid, Assigned PCP 05/06/19 PA-C [address] [place] [address] documented as of this encounter
--- OUTSIDE RECORDS SUMMARY | 2022-04-28 01:23 | XMS_ITS | Encounter Summary ---
:2000 Author Organization [place] Address [address] [place] [address] Care Team Providers Name Role Phone Rakesh Cid PA-C Unavailable [phone] Rakesh Cid PA-C Primary Care Provider [phone] Lita Oseguera Unavailable Unavailable Rakesh Cid PA-C Unavailable [phone] Isaura Lamar RN Unavailable Unavailable Lita Oseguera Unavailable Unavailable Marija Edgar APRN SPEEDER WORKER Primary Care Provider [phone] Chanelle Mccann APRN CN Unavailable + Lesley Moody MA Unavailable Kyara De La Fuente RN Unavailable Marija Edgar APRN SPEEDER WORKER Unavailable Mynor Broussard MD Unavailable Keisha Dotson MD Unavailable Mary Mejia Unavailable Unavailable Stacey Briones LEAD SYSTEMS ENGINEER Unavailable Lesley Moody MA Unavailable Mary Mejia Unavailable Unavailable Lita Oseguera Unavailable Unavailable Galo Burrell MD Unavailable Cristina Wood Unavailable Unavailable NikiaLesley alexis Romana ABRAMS Unavailable Meredith Bedoya Unavailable Unavailable Cristina Wood Unavailable Unavailable Diana Desir [facility] Unavailable Rain Galaviz PA-C Unavailable Summer Lara MD Unavailable Summer Lara MD Unavailable Summer Lara MD Unavailable Tavia Wyatt MD Unavailable Unavailable Johnny Murillo MD Unavailable [phone] Erica Farrell APRN SPEEDER WORKER Unavailable [phone] VikasTeresita Walter [facility] Unavailable [phone] Tavia Wyatt MD Unavailable Unavailable Diana Desir [facility] Unavailable Rich Barrett MD Unavailable Neil Kent MD Unavailable Roney Story DPM Unavailable Erica Farrell APRN SPEEDER WORKER Unavailable [phone] Diana Desir [facility] Unavailable Encounter Details Date Type Department Care Team Description 02/27/2020 Telephone [facility] Rakesh Cid [place] PA-C [address] [facility], [address] [place] [address] [address] [place] [address] [place] [address] [phone] Social History Tobacco Use Types Packs/Day Years [...] How often do you attend alevism or hinduism services? Never 09/22/2021 Do you [...] this encounter Miscellaneous Notes Telephone Encounter - Violet Jeffrey - 02/27/2020 4:00 PM CDT Patient Returning Call Reason for call: Pt was wanting to know the results to her labs. Information relayed to patient: I would reach out to you to call her back Patient has additional questions: Yes What are your questions/concerns: I'm not sure what labs she speaks of. Okay to leave a detailed message?: Yes at Home number on file [phone] (home) Violet Jeffrey Patient Change Management documented in this encounter Plan of Treatment Upcoming Encounters Date Type Specialty Care Team Description 04/28/2022 Office Visit Family Practice Anthony Doe PA-C [address] [place] [phone] (Wo rk) 05/03/2022 Office Visit Dermatology Neil Kent M D [address] [place], [place] [address]15 (Wo rk) 05/05/2022 Office Visit Optometry Yeny David, OD [address] [facility] [place] [place] [address] (Wo rk) 05/11/2022 Virtual Visit Pharm D Diana Desir , [facility] [address] [place], [place] [address] (Wo rk) 05/14/2022 Office Visit Cardiology Livan Sharif MD [address] [facility] [address] [place], [place] [address] (Wo rk) 05/31/2022 Office Visit Family Practice Valery Veronica PA-C [address] [place], [place] [phone] (Wo rk) documented as of this encounter Visit Diagnoses Not on filedocumented in this encounter Additional Health Concerns Infection Onset Date Last Indicated Resolved Time Rule Out COVID-19 07/30/2020 07/30/2020 07/30/2020 7:1 1 PM PROGRAM DIRECTOR/TRAFFIC DIRECTOR Rule Out COVID-19 08/30/2020 08/30/2020 08/30/2020 5:0 5 PM PROGRAM DIRECTOR/TRAFFIC DIRECTOR Rule Out COVID-19 09/24/2020 09/24/2020 09/24/2020 9:2 4 AM CDT Rule Out COVID-19 11/05/2020 11/05/2020 11/06/2020 1:0 9 PM CDT Rule Out COVID-19 05/11/2021 05/11/2021 05/13/2021 10: 18 AM CDT Rule Out COVID-19 07/13/2021 07/13/2021 07/14/2021 3:0 4 PM PROGRAM DIRECTOR/TRAFFIC DIRECTOR Rule Out COVID-19 07/18/2021 07/18/2021 07/20/2021 1:5 6 PM PROGRAM DIRECTOR/TRAFFIC DIRECTOR COVID-19 07/18/2021 07/18/2021 08/08/2021 11:39 PM PROGRAM DIRECTOR/TRAFFIC DIRECTOR Rule Out COVID-19 12/18/2021 12/18/2021 12/19/2021 11: 34 AM CDT Rule Out COVID-19 02/24/2022 02/24/2022 02/25/2022 1:0 8 PM CDT Rule Out COVID-19 04/26/2022 04/26/2022 04/26/2022 6:4 7 AM CDT Assessment Noted Time PHQ-9 Depression Total Score: 11 02/21/2020 1:14 PM CD T documented as of this encounter Care Teams Oxygen Plant Operator Relationship Specialty Start Date End Date Rakesh Cid PCP - General Physician Rail Car Painter/Sandblaster - 05/14/19 1 [facility] Marija Edgar, PCP - General Nurse Practitioner 04/30/20 BUS GIRL SPEEDER WORKER [address] [place] [address] Rakesh Cid Assigned PCP 05/06/19 03/01/20 [facility]O [facility] [address] [facility] [place] [phone] Lita Oseguera Personal Advocate & 02/28/20 Liaison (PAL) Rakesh Cid Assigned PCP 03/02/20 06/07/20 ROVERTO [facility] [address] [facility], [place] [phone] Isaura Lamar, RN Personal Advocate & Family Practice 04/03/20 04/06/20 Liaison (PAL) Lita Oseguera Personal Advocate & 04/07/20 Liaison (PAL) Chanelle Mccann Assigned OBGYN Provider 05/02/20 05/09/21 Elyse Mooney APRN CNM [address], [address] [place], [place] [phone] Lesley Moody Community Health Worker 05/30/20 06/08/20 JOSE ALBERTO Avendano Kyara De La Fuente, VJ Specialty Care Neurology 06/04/20 03/05/21 Coordinator Marija Edgar, Assigned PCP 06/08/20 BUS GIRL SPEEDER WORKER [address] [place] [address] Mynor Broussard MD Assigned Surgical 06/01/20 11/28/21 6[address] [facility] Provider [address] [place], [place] [address] Mauri, Melody Neuroscience 06/04/20 MD Keisha Provider [address] [place], [place] [address] Mary Mejia Financial Resource 08/07/2008/11 Worker Stacey Briones, Lead Belt Measurer Primary Care - CC 08/11/20 12/30/20 LEAD SYSTEMS ENGINEER Lesley Moody Community Health Worker 08/11/20 10/01/20 JOSE ALBERTO Avendano aMry Mejia Financial Resource 09/02/2009/09 Worker Lita Oseguera Personal Advocate & Family Medicine 09/10/20 09/21/20 Liaison (PAL) Galo Burrell MD Assigned Heart and 10/05/20 04/02/[address] [facility] [address] Vascular Provider [address] [place] [address] Cristina Wood Financial Resource 10/07/20 10/14/20 Worker Lesley Moody Community Health Worker 10/23/20 12/30/20 JOSE ALBERTO Avendano Meredith Bedoya Financial Resource 10/23/20 11/23/20 Worker Cristina Wood Financial Resource 02/09/21 02/09/21 Worker Diana Desir, Pharmacist Pharmacist 04/17/21 [facility] [address] [place], [place] [address] Rain Galaviz Physician Rail Car Painter/Sandblaster Dermatology 04/28/21 ROVERTO Paredes [address] [place] [address] DR [address] [place], [place] [phone] Summer Lara MD Assigned OBGYN Provider 05/10/21 05/23/[address] [place], [place] [phone] Summer Lara MD Assigned OBGYN Provider 05/31/21 03/12/[address] [place], [place] [phone] Summer Lara MD Assigned OBGYN Provider 05/24/21 05/30/[address] [place], [place] [address] Tavia Wyatt MD Dermatology 07/14/21 Johnny Medrano Assigned Musculoskeletal 08/30/21 03/17/22 MD Ish Provider [address] [place], [place] [address] Erica Farrell Nurse Practitioner Cardiovascular Disease 09/09/21 ARLENE Guidry SPEEDER WORKER [address] [facility] [address] [place], [place] [address] Teresita Bean Pharmacist Pharmacist 09/24/21 09/29/21 Walter, [facility] [address] [facility] [address] [place], [place] [phone] Tavia Wyatt, Assigned Surgical 11/29/21 MD Provider Diana Desir, Assigned MTM Pharmacist 01/02/22 03/26/22 [facility] [address] [place], [place] [phone] Rich Barrett Physician Ophthalmology 01/21/22 Gerson Reyes MD [address] [facility] [address] [place] [address] Neil Kent MD MD Dermatology 02/24/22 500 [place], [place] [address] Roney Story, Assigned Musculoskeletal 03/20/22 DPM Provider [address] [facility] [address] [place], [place] [address] Erica Farrell Assigned Heart and 04/03/22 ARLENE Guidry SPEEDER WORKER Vascular Provider [address] [place] [address] Diana Desir, Assigned MTM Pharmacist 04/07/22 [facility] [address] [place], [place] [phone] documented as of this encounter
--- OUTSIDE RECORDS SUMMARY | 2022-04-28 01:23 | XMS_ITS | Encounter Summary ---
:2000 Author Organization [place] Address [address] [place] [address] Care Team Providers Name Role Phone Rakesh Cid PA-C Primary Care Provider [phone] Lita Oseguera Unavailable Unavailable Rakesh Cid PA-C Unavailable [phone] Encounter Details Date Type Department Care Team Description 03/26/2020 Travel Social History Tobacco Use Types Packs/Day [...] How often do you attend rastafari or yazidism services? Never 09/22/2021 Do you [...] been in contact with No / Unsure 03/26/2020 7:27 PM CDT someone who was confirmed or suspected to have Coronavirus / COVID-19? documented as of this encounter Plan of Treatment Upcoming Encounters Date Type Specialty Care Team Description 04/28/2022 Office Visit Family Practice Anthony Doe PABaldo [address] [place] [address] (Wo rk) 05/03/2022 Office Visit Dermatology Neil Kent M D [address] [place], [place] [address]355 (Wo rk) 05/05/2022 Office Visit Optometry Yeny David, OD [address] [facility] [address] [place] [phone] (Wo rk) 05/11/2022 Virtual Visit Pharm D Diana Desir , [facility] [address] [place], [place] [address] (Wo rk) 05/14/2022 Office Visit Cardiology Livan Sharif MD [address] [facility] [address] [place], [place] [address] (Wo rk) 05/31/2022 Office Visit Family Practice Valery Veronica PAUcheC [address] [place], [place] [address] (Wo rk) documented as of this encounter Visit Diagnoses Not on filedocumented in this encounter Additional Health Concerns Assessment Noted Time PHQ-9 Depression Total Score: 11 02/21/2020 1:14 PM CD T documented as of this encounter Care Teams Ditch Worker Relationship Specialty Start Date End Date Rakesh Cid PCP - General Physician Principal Network Architect - 05/14/19 1 [facility] Lita Oseguera Personal Advocate & 02/28/20 Liaison (PAL) Rakesh Cid Assigned PCP 03/02/20 06/07/20 ROVERTO [facility]ers [address] [place] [address] documented as of this encounter
--- OUTSIDE RECORDS SUMMARY | 2022-04-28 01:23 | XMS_ITS | Encounter Summary ---
:2000 Author Organization [place] Address [address] [place] [address]. [place] [address] Care Team Providers Name Role Phone Rakesh Cid PA-C Primary Care Provider [phone] Lita Oseguera Unavailable Unavailable Rakesh Cid PA-C Unavailable [phone] Encounter Details Date Type Department Care Team Description 03/04/2020 Telephone [facility] Rakesh Cid [place] PA-C [address] [facility], [address] [place] [address] [place] [address] [place] [address] [phone] Social History Tobacco Use Types Packs/Day Years [...] How often do you attend shinto or worship services? Never 09/22/2021 Do you [...] encounter Miscellaneous Notes Telephone Encounter - Lita Oseguear - 03/04/2020 8:19 AM CDT Msg left on Pt's cell phone letting her know that Rakesh has been out of clinic and will return backtomorrow. I will check the status of the gene site test with Rakesh and call Pt back to either set up a telephone visit to go over results or to let her know results are not back yet. Direct number forPAL left for call back with any further questions or concerns. Hilda Troncoso-[facility] Health Guide-SB 4 documented in this encounter Plan of Treatment Upcoming Encounters Date Type Specialty Care Team Description 04/28/2022 Office Visit Family Practice Anthony Doe, PABaldo [address] [place] [address] (Wo rk) 05/03/2022 Office Visit Dermatology Neil Kent M D [address] [place] [address] (Wo rk) 05/05/2022 Office Visit Optometry Yeny David, OD [address] [facility] [address] [place] [phone] (Wo rk) 05/11/2022 Virtual Visit Pharm D Diana Desir , [facility] [address] [place], [place] [address] (Wo rk) 05/14/2022 Office Visit Cardiology Livan Sharif MD [address], [address] [place], [place] [address] (Wo rk) 05/31/2022 Office Visit Family Practice Valery Veronica PA-C 909 [place], [place] [address] (Wo rk) documented as of this encounter Visit Diagnoses Not on filedocumented in this encounter Additional Health Concerns Assessment Noted Time PHQ-9 Depression Total Score: 11 02/21/2020 1:14 PM CD T documented as of this encounter Care Teams Machinist 2Nd Shift Relationship Specialty Start Date End Date Rakesh Cid PCP - General Physician Mold Maker Apprentice - 05/14/19 1 [facility]O [facility] Lita Oseguera Personal Advocate & 02/28/20 Liaison (PAL) Rakesh Cid Assigned PCP 03/02/20 06/07/20 ROVERTO Landers [address] [address] documented as of this encounter
--- OUTSIDE RECORDS SUMMARY | 2022-04-28 01:23 | XMS_ITS | Encounter Summary ---
:2000 Author Organization [facility] Address [address] [place] [address] Care Team Providers Name Role Phone Rakesh Cid PA-C Unavailable [phone] Rakesh Cid PA-C Primary Care Provider [phone] Encounter Details Date Type Department Care Team Description 02/21/2020 Travel Social History Tobacco Use Types Packs/Day [...] How often do you attend jain or adventist services? Never 09/22/2021 Do you [...] Office Visit Family Practice Anthony Doe, PAUcheC [address] [place], [place] [phone] (Wo rk) 05/03/2022 Office Visit Dermatology Neil Kent M D [address] [place], [place] [phone] (Wo rk) 05/05/2022 Office Visit Optometry Yeny David, OD [address] [facility] [address] [place] [phone] (Wo rk) 05/11/2022 Virtual Visit Pharm D Diana Desir , [facility] [address] [place], [place] [phone] (Wo rk) 05/14/2022 Office Visit Cardiology Livan Sharif MD [address] [place], [place] [address] (Wo rk) 05/31/2022 Office Visit Family Practice Valery Veronica PABaldo [address] [place], [place] [phone] (Wo rk) documented as of this encounter Visit Diagnoses Not on filedocumented in this encounter Additional Health Concerns Assessment Noted Time PHQ-9 Depression Total Score: 11 02/21/2020 1:14 PM CD T documented as of this encounter Care Teams Pest Locator Relationship Specialty Start Date End Date Rakesh Cid, PCP - General Physician Pouring Crane Operator - 05/14/19 04/29/20 [facility] Rakesh Cid, Assigned PCP 05/06/19 PA-C [address] [place] [address] documented as of this encounter
--- OUTSIDE RECORDS SUMMARY | 2022-04-28 01:23 | XMS_ITS | Encounter Summary ---
:2000 Author Organization [place] Address [address] [place] [address]. [place] [address] Care Team Providers Name Role Phone Rakesh Cid PA-C Primary Care Provider [phone] Lita Oseguera Unavailable Unavailable Rakesh Cid PA-C Unavailable [phone] Isaura Lamar RN Unavailable Unavailable Reason for Visit Reason Onset Date Comments No Show 04/04/2020 No show phone appt. Called x2. No answer. left messge to reschedule Encounter Details Date Type Department Care Team Description 04/04/2020 Telephone [facility] Lizy, No Show (N o show phone Mental Health & [facility] appt. Ca lled x2. No Addiction [facility]. left messge to Clinic reschedule) [address] [place] [address] Social History Tobacco Use Types Packs/Day [...] Office Visit Family Practice Anthony Doe, ROVERTO [address] [place], [place] [phone] (Wo aldo) 05/03/2022 Office Visit Dermatology Neil Kent M D [address] [place], [place] [address] (Wo rk) 05/05/2022 Office Visit Optometry Yeny David, OD [address] [facility] [address] [place] [phone] (Wo aldo) 05/11/2022 Virtual Visit Pharm D Diana Desir , [facility] [address] [place], [place] [address] (Wo rk) 05/14/2022 Office Visit Cardiology Livan Sharif MD [address] [place], [place] [address] (Wo rk) 05/31/2022 Office Visit Family Practice Valery Veronica PAUcheC 909 [place] [address] (Wo rk) documented as of this encounter Visit Diagnoses Not on filedocumented in this encounter Additional Health Concerns Assessment Noted Time PHQ-9 Depression Total Score: 12 03/27/2020 2:40 PM CD T documented as of this encounter Care Teams Manager Field Investigations Relationship Specialty Start Date End Date Rakesh Cid PCP - General Physician Solutions Sales Consultant - 05/14/19 1 [facility] Lita Oseguera Personal Advocate & 02/28/20 Liaison (PAL) Rakesh Cid Assigned PCP 03/02/20 06/07/20 ROVERTO [facility] [address] [place] [address] Isaura Lamar, RN Personal Advocate & Family Practice 04/03/20 04/06/20 Liaison (PAL) documented as of this encounter
--- OUTSIDE RECORDS SUMMARY | 2022-04-28 01:23 | XMS_ITS | Encounter Summary ---
:2000 Author Organization [place] Address [address] [place] [address] Care Team Providers Name Role Phone Rakesh Cid PA-C Primary Care Provider [phone] Lita Oseguera Unavailable Unavailable Rakesh Cid PA-C Unavailable [phone] Reason for Visit Reason Comments Chest Pain Encounter Details Date Type Department Care Team Description 03/26/2020 Emergency [facility] Elizabeth Perez Chest jaquan n, unspecified [facility] MD Jelena type [address] [facility] [address] [place] [phone] Social History Tobacco Use Types Packs/Day Years [...] How often do you attend gnosticism or church services? Never 09/22/2021 Do you [...] or slept in a snf (including now)? Sex Assigned at Date Recorded Female 03/02/2021 5:45 PM CDT COVID-19 Exposure Response Date Recorded In the last month, have you been in contact with No / Unsure 03/26/2020 7:27 PM CDT someone who was confirmed or suspected to have Coronavirus / COVID-19? documented as of this encounter Last Filed Vital Signs Vital Sign Reading Time Taken Comments Blood Pressure 128/81 03/26/2020 10:30 PM CDT Pulse 81 03/26/2020 10:30 PM CDT Temperature 37.6 ??C (99.6 ??F) 03/26/2020 7:29 PM CDT Respiratory Rate 18 03/26/2020 9:15 PM CDT Oxygen Saturation 99% 03/26/2020 10:30 PM CDT Inhaled Oxygen Concentration - - Weight 77.1 kg (170 lb) 03/26/2020 7:29 PM CDT Height - - Body Mass Index 27.86 09/11/2019 1:38 PM ECHOCARDIOGRAPH TECH documented in this encounter Discharge Instructions Discharge InstructionsElizabeth Perez MD - 03/26/2020 10:53 PM CDT Discharge Instructions Chest Pain You [...] Sig Dispensed Refills Start Date End Date ferrous sulfate Take 325 mg by mouth 0 06/04/2020 (FEROSUL) 325 (65 Fe) MG tablet hydrOXYzine (ATARAX) 25 Take 1 tablet (25 90 tablet 0 02/2006/04/2020 MG tabletIndications: mg) by mouth 3 times Anxiety daily as needed for anxiety naproxen (NAPROSYN) 500 Take 500 mg by mouth 0 09/30/2020 MG tablet norethindrone (MICRONOR) Take 1 tablet (0.35 84 tablet 3 06/04/2020 0.35 MG mg) by mouth daily tabletIndications: Encounter for initial prescription of contraceptive pills propranolol (INDERAL) 20 Take 1 tablet (20 90 tablet 1 11/201906/04/2020 MG tabletIndications: mg) by mouth 3 times Anxiety, Palpitations daily as needed (palpitations, anxiety) sertraline (ZOLOFT) 100 Take 1.5 tablets 135 tablet 1 201907/17/2020 MG tabletIndications: (150 mg) by mouth Anxiety daily tiZANidine (ZANAFLEX) 4 Take 1 tablet (4 mg) 30 tablet 0 06/04/2020 MG tabletIndications: by mouth nightly as Cervicalgia needed for muscle spasms triamcinolone (KENALOG) Apply topically 2 80 g 1 05/0206/04/2020 0.1 % external times daily creamIndications: Psoriasis zonisamide (ZONEGRAN) Take 2 capsules (200 60 capsule 0 04/1105/15/2020 100 MG capsule mg) by mouth 2 times daily documented as of this encounter ED Notes Samantha Chaidez RN - 03/26/2020 11:01 PM CDT Pt provided with discharge paperwork and educated on how recommended follow-up with PCP. Pt educatedon how to manage symptoms at home and when to seek medical attention. Pt voiced understanding and denied any questions at discharge. America Olsen RN - 03/26/2020 7:28 PM CDT Pt complains of several hours of left sided chest pain that radiates to left arm. Elizabeth Perez MD - 03/26/2020 7:19 PM CDT History Chief Complaint: Chest Pain The history is provided by the patient. Kim Johnson is a 19 year old year old female with a history of CKD who presents for evaluation ofchest pain. The patient states that around 1700 this evening she started to experience sharp left sided chest pain to the point where she was brought to tears and it was very difficult to breath. The patient states that she regularly has some chest pain but this was much worse. Feeling much better now. Patient denies leg pain or swelling. No hx of DVT/PE. Not on control. No recent long travel or surgery. No recent illness or associated symptoms with her pain. To note, the patient states that she smoked, or vaped, for three years but has since quit. Allergies: No Known Drug Allergies Medications: Ferosul Atarax Naprosyn Micronor Inderal Zoloft Zanaflex Kenalog Zonegran Medical History: Anxiety CKD Depression Gastroesophageal reflux disease Seizure Headache Psoriasis Surgical History: Genitourinary surgery Family History: Brain tumor Social History: Smoke: No - Former Alcohol: Not currently Drug: No Review of Systems Constitutional: Negative for fever. Respiratory: Positive for chest tightness and shortness of breath. Negative for cough. Cardiovascular: Positive for chest pain. Negative for leg swelling. All other systems reviewed and are negative. Physical Exam Patient Vitals for the past 24 hrs: BP Temp Temp src Pulse Resp SpO2 Weight 03/26/201928 (!) 138/90 99.6 ??F (37.6 ??C) Temporal 86 16 99 % 77.1 kg (170 lb) Physical Exam General: Sitting up in bed Eyes: The pupils are equal and round Conjunctivae and sclerae are normal ENT: Wearing a mask Neck: Normal range of motion CV: Regular rate Skin warm and well perfused Radial pulses 2+ bilaterally Resp: Non labored breathing on room air No tachypnea No cough heard GI: Abdomen is soft, there is no rigidity No distension No rebound tenderness No abdominal tenderness MS: Normal muscular tone Skin: No rash or acute skin lesions noted Neuro: Awake, alert. Speech is normal and fluent. Face is symmetric. Moves all extremities equally Psych: Appears worried Emergency Department Course ECG: Indication: Chest pain Time: 1933 Vent. Rate 79 bpm. VA interval 136. QRS duration 88. QT/QTc 372/426. P-R-T axis 35 65 52. Normal sinus Rhythm. Normal ECG. Read time: 1935 Imaging: Radiology findings were communicated with the patient who voiced understanding of the findings. XR PA & LAT: Negative chest. Reading per radiology. Laboratory: Laboratory findings were communicated with the patient who voiced understanding of the findings. CBC: WBC: 7.7, HGB: 12.5, PLT: 263 BMP: Glucose 96, o/w WNL (Creatinine: 0.79) HCG Qualitative urine - Negative D dimer - <0.3 2032 Troponin - <0.015 Emergency Department Course: Past medical records, nursing notes, and vitals reviewed. 7:53 PM I performed an exam of the patient as documented above. EKG obtained in the ED, see results above. The patient was sent for a Chest Xray while in the emergency department, results above. 2124 I rechecked the patient and discussed the results of her workup thus far. Findings and plan explained to the Patient. Patient discharged home with instructions regarding supportive care, medications, and reasons to return. The importance of close follow-up was reviewed. I personally reviewed the laboratory and imaging results with the Patient and answered all related questions prior to discharge. Impression & Plan Medical Decision Making: Kim Johnson is a 19 year old female presented to the Emergency Department with a complaint of chest pain. Fortunately the workup in the ED has been unremarkable and at this time I think ACS is unlikely. The EKG is similar to prior EKG. The troponin is negative. I considered other possible causes ofchest pain including PE, infection, pneumothorax, aortic dissection, and even more benign causes such as reflux and esophageal motility issues. Negative d-dimer and low risk for PE, did not think further workup was indicated. Patient has had no recent illness to suggest pneumonia, covid. Patient lookswell and feels much better than earlier tonight. Does not have the same pain as earlier today. Doubt dissection with no severe hypertension, no neuro deficits, no radiation to back, narrow mediastinum.The physical exam, laboratory, and radiological findings listed above make life threatening conditions less likely. At this time I believe the patient is stable for discharge. I have encouraged close Primary Care Physician follow up. Diagnosis: ICD-10-CM 1. Chest pain, unspecified type R07.9 Disposition: Discharged to home. Scribe Disclosure: Clem Denis, am serving as a scribe at 7:53 PM on 03/26/2020 to document services personally performed by Elizabeth Perez MD, based on my observations and the provider's statements to me. Elizabeth Perez MD 03/27/20 0147 documented in this encounter Plan of Treatment Upcoming Encounters Date Type Specialty Care Team Description 04/28/2022 Office Visit [facility] Anthony Doe, PAUcheC [address] [place] [address] (Wo rk) 05/03/2022 Office Visit Dermatology Neil Kent M D [address] [place] [address] (Wo rk) 05/05/2022 Office Visit Optometry Yeny David, OD [address] [place], [place] [phone] (Wo rk) 05/11/2022 Virtual Visit Pharm D Diana Desir , [facility] [address] [place], [place] [address] (Wo rk) 05/14/2022 Office Visit Cardiology Livan Sharif MD [address] [facility] [address] [place] [address] (Wo rk) 05/31/2022 Office Visit Family [facility] Valery Veronica PA-C [address] [place], [place] [address] (Wo rk) documented as of this encounter Procedures Procedure Name Priority Date/Time Associated Comments Diagnosis XR CHEST 2 VIEWS STAT 03/26/2020 9:37 PM Resul ts for this CDT procedure are i n the results section. HCG QUALITATIVE URINE STAT 03/26/2020 8:36 PM Results for this CDT procedure are i n the results section. CBC WITH PLATELETS & STAT 03/26/2020 8:33 PM R esults for this DIFFERENTIAL CDT procedure are i n the results section. TROPONIN I STAT 03/26/2020 8:33 PM Results f or this CDT procedure are i n the results section. D DIMER QUANTITATIVE STAT 03/26/2020 8:33 PM R esults for this CDT procedure are i n the results section. BASIC METABOLIC PANEL STAT 03/26/2020 8:33 PM Results for this CDT procedure are i n the results section. EKG 12-LEAD, TRACING STAT 03/26/2020 7:34 PM R esults for this ONLY CDT procedure are i n the results section. documented in this encounter Results Chest XR, PA & LAT (03/26/2020 9:37 PM CDT) Anatomical Region Laterality Modality Chest Digital Radiography Specimen (Source) Anatomical Collection Method Collection Time Re ceived Time Location / / Volume Laterality 03/26/2020 9:26 PM CDT Impressions 03/26/2020 9:42 PM CDT IMPRESSION: Negative chest. Narrative 03/26/2020 9:42 PM CDT EXAM: XR CHEST 2 VW LOCATION: [facility] DATE/TIME: 03/26/2020 9:26 PM INDICATION: Chest pain COMPARISON: 12/14/2019 Procedure Note Severiano Saini MD - 03/26/2020Formatt ing of this note might be different from the original. EXAM: XR CHEST 2 VW LOCATION: [facility] DATE/TIME: 03/26/2020 9:26 PM INDICATION: Chest pain COMPARISON: 12/14/2019 IMPRESSION: Negative chest. Elizabeth Perez MD IMG DIAGNOSTIC IMAGING ORDER GARY HCG qualitative urine (03/26/2020 8:36 PM CDT) athologist Signature HCG Qual Urine Negative NEG^Negati 03/26/2020 [place] ve 8:54 PM CDT [facility] Comment: This test is for screening purposes. ??R esults should be interpreted along with the clinical picture. ??Confirmation te sting is available if warranted by ordering [id number], HCG Quantitative Pregna ncy. Specimen Anatomical Collection Method Collection Time Receive d Time (Source) Location / / Volume Laterality Urine specimen URINE SPECIMEN 03/26/2020 8:36 PM 03/26 8:41 (specimen) OBTAINED BY CLEAN CDT PM CDT CATCH PROCEDURE / Unknown Elizabeth Perez MD LAB - URINE ORDERABLES Performing Organization Address [facility] Code Phon e Number [facility] [address] [place], [place] [address] [facility] [address] [place], [place] [address], [facility] [phone] D dimer quantitative (03/26/2020 8:33 PM CDT) athologist Signature D Dimer <0.3 0.0 - 0.50 03/26/2020 [facility] ug/ml FEU 8:54 PM CDT [facility] Comment: This D-dimer assay is intended for use i n conjunction with a clinical pretest probability assessment model to exclude pulmonary embolism (PE) and deep venous thrombosis (DVT) in outpatients s uspected of PE or DVT. The cut-off value is 0.5 ug/mL FEU. Specimen Anatomical Collection Method Collection Time Receive d Time (Source) Location / / Volume Laterality Blood specimen 03/26/2020 8:33 PM 020 8:38 (specimen) CDT PM CDT Elizabeth Perez MD LAB - BLOOD ORDERABLES Performing Organization Address City/[facility]/ZIP Code Phon e Number [facility] [address] [place], [place] [address] [facility] [address] [place], [place] [address], [facility] [phone] Troponin I (03/26/2020 8:33 PM CDT) athologist Signature Troponin I ES <0.015 0.000 - 03/26/2020 [place] 0.045 ug/L 9:05 PM CDT [facility] Comment: The 99th percentile for upper reference range is 0.045 ug/L. ??Troponin values in the range of 0.045 - 0.120 ug/L may b e associated with risks of adverse clinical events. Specimen Anatomical Collection Method Collection Time Receive d Time (Source) Location / / Volume Laterality Blood specimen 03/26/2020 8:33 PM 020 8:38 (specimen) CDT PM CDT Elizabeth Perez MD LAB - BLOOD ORDERABLES Performing Organization Address City/State/ZIP Code Phon e Number [facility] [address] [place], [place] [address] [facility] [address] [place], [place] [address] [facility] [phone] Basic metabolic panel (03/26/2020 8:33 PM T) athologist Signature Sodium 137 133 - 144 03/26/2020 [place] mmol/L 8:55 PM [facility] Potassium 3.5 3.4 - 5.3 03/26/2020 [place] mmol/L 8:55 PM [facility] Chloride 107 96 - 110 03/26/2020 [place] mmol/L 8:55 PM [facility] Carbon Dioxide 24 20 - 32 03/26/2020 [place] mmol/L 9:01 [facility] Anion Gap 6 3 - 14 03/26/2020 [place] mmol/L 9:01 PM [facility] Glucose 96 70 - 99 03/26/2020 [place] mg/dL 9:01 [facility] Urea Nitrogen 11 7 - 30 03/26/2020 [place] mg/dL 9:01 [facility] Creatinine 0.79 0.50 - 03/26/2020 [place] 1.00 mg/dL 9:01 [facility] GFR Estimate >90 >60 03/26/2020 [place] mL/min/{1. 9:01 PM [facility] 73_m2} HOSPITAL Comment: Non GFR Calc Starting 06/27/2018, serum creatinine ba sed estimated GFR (eGFR) will be calculated using the Chronic Kidney Dise [facility] Epidemiology Collaboration (CKD-EPI) equation. GFR Estimate If >90 >60 mL/min/{1.73_m2} 03/26/2020 9: 01 PM [facility] Comment: GFR Calc Starting 06/27/2018, serum creatinine ba sed estimated GFR (eGFR) will be calculated using the Chronic Kidney Dise [facility] Epidemiology Collaboration (CKD-EPI) equation. Calcium 9.3 8.5 - 10.1 mg/dL 03/26/2020 9:01 PM [facility] Specimen Anatomical Collection Method Collection Time Receive d Time (Source) Location / / Volume Laterality Blood specimen 03/26/2020 8:33 PM 020 8:38 (specimen) CDT PM CDT Elizabeth Perez MD LAB - BLOOD ORDERABLES Performing Organization Address City/State/ZIP Code Phon e Number [facility] [address] [place], [place] [address] [facility] [address] [phone] (ABNORMAL) CBC with platelets differential (03/26/2020 8:33 PM CDT) [facility] gist Method Time Signature WBC 7.7 4.0 - 03/26/2020 [facility] 11.0 8:43 PM [facility] 10e9/L [facility] RBC Count 4.77 3.8 - 5.2 03/26/2020 [facility] 10e12/L 8:43 PM [facility] Hemoglobin 12.5 11.7 - 03/26/2020 [facility] 15.7 g/dL 8:43 PM [facility] Hematocrit 40.6 35.0 - 03/26/2020 [facility] 47.0 % 8:43 PM [facility] MCV 85 78 - 100 03/26/2020 [facility] fl 8:43 PM [facility] MCH 26.2 (L) 26.5 - 03/26/2020 [facility] 33.0 pg 8:43 PM [facility] MCHC 30.8 (L) 31.5 - 03/26/2020 [facility] 36.5 g/dL 8:43 PM [facility] RDW 12.9 10.0 - 03/26/2020 [facility] 15.0 % 8:43 PM [facility] Platelet Count 263 150 - 450 03/26/2020 [facility] 10e9/L 8:43 PM [facility] Diff Method Automated 03/26/2020 [facility] Method 8:43 PM [facility] % Neutrophils 62.1 % 03/26/2020 [facility] 8:43 PM [facility] % Lymphocytes 25.4 % 03/26/2020 [facility] 8:43 PM [facility] % Monocytes 5.0 % 03/26/2020 [facility] 8:43 PM [facility] % Eosinophils 6.4 % [facility] % Basophils 0.8 % 03/26/2020 [facility] 8:43 PM [facility] % Immature 0.3 % 03/26/2020 [facility] Granulocytes 8:43 PM [facility] Nucleated RBCs 0 0 /100 03/26/2020 [facility] 8:43 PM [facility] Absolute 4.8 1.6 - 8.3 03/26/2020 [place] Neutrophil 10e9/L 8:43 PM [facility] Absolute 1.9 0.8 - 5.3 03/26/2020 [place] Lymphocytes 10e9/L 8:43 PM [facility] Absolute 0.4 0.0 - 1.3 03/26/2020 [place] Monocytes 10e9/L 8:43 PM [facility] Absolute 0.5 0.0 - 0.7 03/26/2020 [place] Eosinophils 10e9/L 8:43 PM [facility] Absolute 0.1 0.0 - 0.2 03/26/2020 [place] Basophils 10e9/L 8:43 PM [facility] Abs Immature 0.0 0 - 0.4 03/26/2020 [place] Granulocytes 10e9/L 8:43 PM [facility] Absolute 0.0 03/26/2020 [place] Nucleated RBC 8:43 PM [facility] Specimen Anatomical Collection Method Collection Time Receive d Time (Source) Location / / Volume Laterality Blood specimen 03/26/2020 8:33 PM 020 8:38 (specimen) CDT PM CDT Elizabeth Perez MD LAB - BLOOD ORDERABLES Performing Organization Address City/State/ZIP Code Phon e Number [facility] [address] [place] [address] [facility] [address] [place] [address] [facility] [phone] EKG 12 lead (03/26/2020 7:34 PM CDT) [facility] gist Method Time Signature Interpretation ECG Click View RADIOLOGY Image link RESULTS to view waveform and result Specimen (Source) Anatomical Collection Method Collection Time Re ceived Time Location / / Volume Laterality 03/26/2020 7:34 PM CDT Elizabeth Perez MD ECG ORDERABLES Performing Organization Address City/State/ZIP Code Phon e Number RADIOLOGY RESULTS documented in this encounter Visit Diagnoses Diagnosis Chest pain, unspecified type documented in this encounter Additional Health Concerns Assessment Noted Time PHQ-9 Depression Total Score: 11 02/21/2020 1:14 PM CD T documented as of this encounter Care Teams Corporate Responsibility Officer Relationship Specialty Start Date End Date Rakesh Cid PCP - General Physician Italian Teacher - 05/14/19 1 [facility] Lita Oseguera Personal Advocate & 02/28/20 Liaison (PAL) Rakesh Cid Assigned PCP 03/02/20 06/07/20 [facility]O [facility] [address] [place] [address] documented as of this encounter
--- OUTSIDE RECORDS SUMMARY | 2022-04-28 01:23 | XMS_ITS | Encounter Summary ---
:2000 Author Organization [place] Address [address] [place] [address]. [place] [address] Care Team Providers Name Role Phone Rakesh Cid PA-C Primary Care Provider [phone] Lita Oseguera Unavailable Unavailable Rakesh Cid PA-C Unavailable [phone] Reason for Visit Reason Onset Date Comments Appointment 03/03/2020 Logged in for video visit. NS. Called. Stated she couldn't get off work. Encouraged to reschedule (was busy at time) Encounter Details Date Type Department Care Team Description 03/03/2020 Telephone [facility] Joya Medel (Logged in Mental [facility] [place], [facility] for vide o visit. NS. [facility] Stephanie sarabia Stated she Clinic couldn't get off work. [address] [facility] Encouraged to [place], [place]chedule [place] [phone] time)) [phone] Social History Tobacco Use Types Packs/Day Years [...] How often do you attend yazidi or jewish services? Never 09/22/2021 Do you [...] Office Visit Family Practice Anthony Doe, PABaldo [address] [place], [place] [phone] (Wo rk) 05/03/2022 Office Visit Dermatology Neil Kent M D [address] [place] [address] (Wo rk) 05/05/2022 Office Visit Optometry Yeny David, OD [address] [place] [phone] (Wo rk) 05/11/2022 Virtual Visit Pharm D Diana Desir , [facility] [address] [place] [address] (Wo rk) 05/14/2022 Office Visit Cardiology Livan Sharif MD [address] [place] [address] (Wo rk) 05/31/2022 Office Visit Family Practice Valery Veronica PAUcheC [address] [place], [place] [phone] (Wo rk) documented as of this encounter Visit Diagnoses Not on filedocumented in this encounter Additional Health Concerns Assessment Noted Time PHQ-9 Depression Total Score: 11 02/21/2020 1:14 PM CD T documented as of this encounter Care Teams Power Ballast Machine Operator Relationship Specialty Start Date End Date Rakesh Cid PCP - General Physician Crown Wheel Assembler - 05/14/19 1 [facility]ERTO [facility] Lita Oseguera Personal Advocate & 02/28/20 Liaison (PAL) Rakesh Cid Assigned PCP 03/02/20 06/07/20 [facility] [address] [place] [address] documented as of this encounter
--- OUTSIDE RECORDS SUMMARY | 2022-04-28 01:23 | XMS_ITS | Encounter Summary ---
:2000 Author Organization [place] Address [address] [place] [address]. [place] [address] Care Team Providers Name Role Phone Rakesh Cid PA-C Primary Care Provider [phone] Lita Oseguera Unavailable Unavailable Rakesh Cid PA-C Unavailable [phone] Lita Oseguera Unavailable Unavailable Encounter Details Date Type Department Care Team Description 04/15/2020 Telephone [facility] Urgent Care Provider, Elie lopez [facility] [address] [place] [address] Social History Tobacco Use Types Packs/Day Years [...] How often do you attend nondenominational or mormon services? Never 09/22/2021 Do you belong to any clubs or organizations such as [employer] 09/22/2021 nondenominational groups, unions, fraternal or athletic [...] this encounter Miscellaneous Notes Telephone Encounter - La Eller MA - 04/17/2020 1:58 PM CDT Pt. Called back and is still having dark urine and discharge. Will finish RX and see if it feels better. La Eller CMA Telephone Encounter - La Eller MA - 04/17/2020 1:24 PM CDT Called Pt. And left message. La Eller CMA Telephone Encounter - Lesly Mcguire - 04/15/2020 1:14 PM CDT General Call: Who is calling: Patient Reason for Call: Patient would like to get results Okay to leave a detailed message:No at Cell number on file: Telephone Information: Lesly Mcguire Solder Technician documented in this encounter Plan of Treatment Upcoming Encounters Date Type Specialty Care Team Description 04/28/2022 Office Visit Family Practice Anthony Doe PA-C [address] [place], [place] [phone] (Wo rk) 05/03/2022 Office Visit Dermatology Neil Kent M D [address] [place], [place] [address] (Wo rk) 05/05/2022 Office Visit Optometry Yeny David, OD [address] [place] [address] (Wo rk) 05/11/2022 Virtual Visit Pharm D Diana Desir , [facility] [address] [place], [place] [address] (Wo rk) 05/14/2022 Office Visit Cardiology Livan Sharif MD [address] , [facility] [address] [place], [place] [address] (Wo rk) 05/31/2022 Office Visit Family [facility] Valery Veronica PA-C [address] [place], [place] [address] (Wo rk) documented as of this encounter Visit Diagnoses Not on filedocumented in this encounter Additional Health Concerns Assessment Noted Time PHQ-9 Depression Total Score: 12 03/27/2020 2:40 PM CD T documented as of this encounter Care Teams Chocolate Maker Relationship Specialty Start Date End Date Rakesh Cid PCP - General Physician Meter Changes Records Clerk - 05/14/19 1 [facility] Lita Oseguera Personal Advocate & 02/28/20 Liaison (PAL) Rakesh Cid Assigned PCP 03/02/20 06/07/20 [facility]O [facility] [address] [place] [address] Lita Oseguera Personal Advocate & 04/07/20 Liaison ([place]NAMARIA) documented as of this encounter
--- OUTSIDE RECORDS SUMMARY | 2022-04-28 01:23 | XMS_ITS | Encounter Summary ---
:2000 Author Organization [place] Address [address] [place] [address] Care Team Providers Name Role Phone Rakesh Cid PA-C Unavailable [phone] Rakesh Cid PA-C Primary Care Provider [phone] Encounter Details Date Type Department Care Team Description 12/14/2019 Travel Social History Tobacco Use Types Packs/Day [...] week 09/22/2021 How often do you attend restorationist or presybeterian services? Never 09/22/2021 Do you belong to any clubs or organizations such as No 09/22/2021 restorationist groups, unions, fraternal or athletic groups, or [...] Office Visit Family Practice Anthony Doe, PABaldo [address] [place], [place] [phone] (Wo rk) 05/03/2022 Office Visit Dermatology Neil Kent M D [address] [place], [place] [phone] (Wo rk) 05/05/2022 Office Visit Optometry Yeny David, OD [address] [place] [phone] (Wo rk) 05/11/2022 Virtual Visit Pharm D Diana Desir , [facility] [address] [place], [place] [address] (Wo rk) 05/14/2022 Office Visit Cardiology Livan Sharif MD [address] [facility] [address] [place], [place] [address] (Wo rk) 05/31/2022 Office Visit Family Practice Valery Veronica PABaldo [address] [place], [place] [phone] (Wo rk) documented as of this encounter Visit Diagnoses Not on filedocumented in this encounter Additional Health Concerns Assessment Noted Time PHQ-9 Depression Total Score: 1 09/11/2019 1:42 PM COMMUNITY ORGANIZER documented as of this encounter Care Teams District Administrative Assistant Relationship Specialty Start Date End Date Rakesh Cid, PCP - General Physician Corporate Administrative Assistant - 05/14/19 04/29/20 PA-C Medical Rakesh Cid, Assigned PCP 05/06/19 PA-C [address] [place] [address] documented as of this encounter
--- OUTSIDE RECORDS SUMMARY | 2022-04-28 01:24 | XMS_ITS | Encounter Summary ---
:2000 Author Organization [facility] Address [address] [place] [address] Care Team Providers Name Role Phone Rakesh Cid PA-C Unavailable [phone] Rakesh Cid PA-C Primary Care Provider [phone] Encounter Details Date Type Department Care Team Description 09/11/2019 Travel Social History Tobacco Use Types Packs/Day Years Used Date Smoking Tobacco: Heavy Smoker Cigarettes 1 Other Smokeless Tobacco: Never Comments: Vaping Alcohol [...] How often do you attend orthodoxy or protestant services? Never 09/22/2021 Do you [...] or slept in a residential (including now)? Sex Assigned at Date Recorded Female 03/02/2021 5:45 PM CDT documented as of this encounter Plan of Treatment Upcoming Encounters Date Type Specialty Care Team Description 04/28/2022 Office Visit Family Practice Anthony Doe, PAUcheC [address] [place], [place] [phone] (Wo rk) 05/03/2022 Office Visit Dermatology Neil Kent M D [address] [place], [place] [phone] (Wo rk) 05/05/2022 Office Visit Optometry Yeny David, OD [address] [place], [place] [phone] (Wo rk) 05/11/2022 Virtual Visit Pharm D Diana Desir , [facility] [address] [place], [place] [address] (Wo rk) 05/14/2022 Office Visit Cardiology Livan Sharif MD [address] [facility] [address] , [facility] [address] [place], [place] [address] (Wo rk) 05/31/2022 Office Visit Family Practice Valery Veronica PAUcheC [address] [place], [place] [address] (Wo rk) documented as of this encounter Visit Diagnoses Not on filedocumented in this encounter Additional Health Concerns Assessment Noted Time PHQ-9 Depression Total Score: 1 09/11/2019 1:42 PM COORDINATOR OF LIBRARY SERVICES documented as of this encounter Care Teams Hand Ii Tube Bender Relationship Specialty Start Date End Date Rakesh Cid, PCP - General Physician Camera Engineer - 05/14/19 04/29/20 ROVERTO Medical Rakesh Cid, Assigned PCP 05/06/19 ROVERTO [address] [place] [address] documented as of this encounter
--- OUTSIDE RECORDS SUMMARY | 2022-04-28 01:24 | XMS_ITS | Encounter Summary ---
:2000 Author Organization [place] Address [address] [place] [address] Care Team Providers Name Role Phone Rakesh Cid PA-C Unavailable [phone] Rakesh Cid PA-C Primary Care Provider [phone] Encounter Details Date Type Department Care Team Description 10/30/2019 Travel Social History Tobacco Use Types Packs/Day [...] How often do you attend restorationist or mandaen services? Never 09/22/2021 Do you [...] been in contact with No / Unsure 10/30/2019 2:53 PM CDT someone who was confirmed or suspected to have Coronavirus / COVID-19? documented as of this encounter Plan of Treatment Upcoming Encounters Date Type Specialty Care Team Description 04/28/2022 Office Visit Family Practice Anthony Doe, PAUcheC [address] [place], [place] [phone] (Wo rk) 05/03/2022 Office Visit Dermatology Neil Kent M D [address] [place], [place] [address] (Wo rk) 05/05/2022 Office Visit Optometry Yeny David, OD [address] [place], [place] [phone] (Wo rk) 05/11/2022 Virtual Visit Pharm D Diana Desir , [facility] [address] [place], [place] [phone] (Wo rk) 05/14/2022 Office Visit Cardiology Livan Sharif MD [address] [facility] [address] [place], [place] [phone] (Wo rk) 05/31/2022 Office Visit Family Practice Valery Veronica PABaldo [address] [place], [place] [address] (Wo rk) documented as of this encounter Visit Diagnoses Not on filedocumented in this encounter Additional Health Concerns Assessment Noted Time PHQ-9 Depression Total Score: 1 09/11/2019 1:42 PM CHIROPRACTIC NEUROLOGIST documented as of this encounter Care Teams Investigator Internal Affairs Relationship Specialty Start Date End Date Rakesh Cid, PCP - General Physician School Janitor - 05/14/19 04/29/20 ROVERTO Medical Rakesh Cid, Assigned PCP 05/06/19 PA-C [address] [place] [address] documented as of this encounter
--- OUTSIDE RECORDS SUMMARY | 2022-04-28 01:24 | XMS_ITS | Encounter Summary ---
:2000 Author Organization [place] [facility] Address [address] [place] [address]. [place] [address] Care Team Providers Name Role Phone Rakesh Cid PA-C Unavailable [phone] Rakesh Cid PA-C Primary Care Provider [phone] Reason for Visit Diagnostic Imaging XR (Routine) - Closed Specialty Diagnoses / Procedures Referred By Contact Refer red To Contact Diagnoses Contusion of right foot including toes, initial encounter Jonah Barr MD Procedures XR Foot Right G/E 3 Views [address] [place], [place] [address] Referral ID Status Reason Start Date Expiration Date Visits Requ ested Visits Authorized [id number] Closed 09/11/2019 09/10/2020 1 1 Encounter Details Date Type Department Care Team Description 09/11/2019 Ancillary Procedure [facility] Jonah Barr [facility] [place] [address] [facility] [address] [place] [address] [phone] (Wo rk) Social History Tobacco Use Types [...] How often do you attend voodoo or sabianism services? Never 09/22/2021 Do you [...] Office Visit Family Practice Anthony Doe, ROVERTO [address] [place], [place] [phone] (Wo rk) 05/03/2022 Office Visit Dermatology Neil Kent M D [address] [place], [place] [phone] (Wo rk) 05/05/2022 Office Visit Optometry Yeny David, OD [address] [facility] [address] [place] [phone] (Wo rk) 05/11/2022 Virtual Visit Pharm D Diana Desir , [facility] [address] [place] [address] (Wo rk) 05/14/2022 Office Visit Cardiology Livan Sharif MD [address] [place] [address] [place] [address] (Wo rk) 05/31/2022 Office Visit Family Practice Valery Veronica PA-C [address] [place] [address] (Wo rk) documented as of this encounter Procedures Procedure Name Priority Date/Time Associated Diagnosis Comme nts XR FOOT RIGHT G/E 3 Routine 09/11/2019 2:14 PM Contusion of ri ght Results for this VIEWS ASSISTANT PLANT CONTROLLER foot including toes, procedu re are in initial encounter the result s section. documented in this encounter Results XR Foot Right G/E 3 Views (09/11/2019 2:14 PM ASSISTANT PLANT CONTROLLER) Anatomical Region Laterality Modality Foot, Ankle Right Computed Radiography Specimen (Source) Anatomical Location Collection Method / Collectio n Time Received Time / Laterality Volume Impressions 09/11/2019 2:27 PM ASSISTANT PLANT CONTROLLER IMPRESSION: Negative exam. MARCELO FANG MD Narrative 09/11/2019 2:27 PM ASSISTANT PLANT CONTROLLER XR FOOT RT G/E 3 VW 09/11/2019 2:14 PM HISTORY: Contusion of right foot includi ng toes, initial encounter; Contusion of right foot including toes, initial encounter Procedure Note Marcelo Fang MD - 09/11/2019Formatt ing of this note might be different from the original. XR FOOT RT G/E 3 VW 09/11/2019 2:14 PM HISTORY: Contusion of right foot includi ng toes, initial encounter; Contusion of right foot including toes, initial encounter IMPRESSION: Negative exam. MARCELO FANG MD Jonah Barr MD IMG DIAGNOSTIC IMAGING ORDER GARY documented in this encounter Visit Diagnoses Not on filedocumented in this encounter Additional Health Concerns Assessment Noted Time PHQ-9 Depression Total Score: 1 09/11/2019 1:42 PM ASSISTANT PLANT CONTROLLER documented as of this encounter Care Teams Sheet Metal Smith Relationship Specialty Start Date End Date Rakesh Cid, PCP - General Physician Range Operator - 05/14/19 04/29/20 ROVERT[place] Medical Rakesh Cid, Assigned PCP 05/06/19 [place] [address] [place] [address] documented as of this encounter
--- OUTSIDE RECORDS SUMMARY | 2022-04-28 01:24 | XMS_ITS | Encounter Summary ---
:2000 Author Organization [place] Address [facility] [place] [address] Care Team Providers Name Role Phone Rakesh Cid PA-C Unavailable [phone] Rakesh Cid PA-C Primary Care Provider [phone] Reason for Visit Reason Comments Urgent Care URI Had been having cough x1-2 w eeks- nasal congestion, productive cough Palpitations Episode of tachycardia today . Pt suffers epilepsy Encounter Details Date Type Department Care Team Description 06/12/2019 Office Visit [facility] Paramjit Davis Viral UR I with cough Urgent Care Tiago Jenkins MD (Primary Dx) [address] [place] [address] [phone] Social History Tobacco Use Types Packs/Day Years Used Date Smoking Tobacco: Heavy Smoker Cigarettes 0.5 Other Smokeless Tobacco: Never Comments: Vaping Alcohol [...] How often do you attend presybeterian or samaritan services? Never 09/22/2021 Do you [...] PM CDT documented as of this encounter Last Filed Vital Signs Vital Sign Reading Time Taken Comments Blood Pressure 98/62 06/12/2019 2:26 PM EASEMENT WORKER Pulse 102 06/12/2019 2:26 PM EASEMENT WORKER Temperature 36.8 ??C (98.3 ??F) 06/12/2019 2:26 PM EASEMENT WORKER Respiratory Rate - - Oxygen Saturation 97% 06/12/2019 2:26 PM EASEMENT WORKER Inhaled Oxygen Concentration - - Weight - - Height - - Body Mass Index - - documented in this encounter Patient Instructions Patient InstructionsParamjit Davis MD - 06/12/2019 2:10 PM CST 1) Tessalon every 8 hours as needed for cough -- take with robitussin or mucinex 'DM' -- honey remedies ( in warm water or cough drops/lozenges) If you develop a fever, shortness of breath, dizziness call the clinic to discuss with our nurse advisor or come in to be seen MENT WORKER documented in this encounter Progress Notes Paramjit Davis MD - 06/12/2019 2:10 PM CST Subjective: Kim Johnson is a 19 year old female who presents for Chief Complaint Patient presents with ??? Urgent Care ??? URI Had been having cough x1-2 weeks- nasal congestion, productive cough ??? Palpitations Episode of tachycardia today. Pt suffers epilepsy Patient has been sick for about 1.5-2 weeks , reports a bad cough and congestion going into her chest. Having a lot of phlegm production. She is a cigarette smoker, no vaping. No recorded fevers. She doesn't have a hx of sinus infections. Coughing fits are bothersome. Denies hx of asthma but having hard time breathing. She did sleep fine last night. She denies sore throat. She woke up this morning and going down stairs then back up the stairs she felt her heart racing which lasted for a few minutes. She drinks a good amount of water a day she reports. She denies vomiting/diarrhea. She is not dizzy. Medications attempted: none She did get the flu shot this season. Patient Active Problem List Diagnosis Date Noted ??? Seizure (H) 05/02/2019 Priority: Medium ??? Depressed 05/02/2019 Priority: Medium ??? Anxiety 05/02/2019 Priority: Medium ??? Tobacco abuse counseling 05/02/2019 Priority: Medium ??? Psoriasis 05/02/2019 Priority: Medium Current Outpatient Medications Medication ??? benzonatate (TESSALON) 100 MG capsule ??? ferrous sulfate (FEROSUL) 325 (65 Fe) MG tablet ??? levonorgestrel (MIRENA, 52 MG,) 20 MCG/24HR IUD ??? naproxen (NAPROSYN) 500 MG tablet ??? sertraline (ZOLOFT) 100 MG tablet ??? tiZANidine (ZANAFLEX) 4 MG tablet ??? triamcinolone (KENALOG) 0.1 % external cream ??? zonisamide (ZONEGRAN) 100 MG capsule No current facility-administered medications for this visit. ROS: As above per HPI Objective: BP 98/62 (BP Location: Right arm, Patient Position: Chair, Cuff Size: Adult Regular) Pulse 102 Temp 98.3 ??F (36.8 ??C) (Oral) SpO2 97% , There is no height or weight on file to calculate BMI. Gen: NAD, well-nourished, sitting in chair comfortably HEENT: EOMI, sclera anicteric, Head normocephalic, ; nares patent; moist mucous membranes, 3+ R tonsil, 2+ L tonsil Neck: trachea midline, no thyromegaly, no enlargement of anterior cervical chain nodes CV: Hemodynamically stable, regular rate and rhythm Pulm: no increased work of breathing , CTAB, no wheezes/rales/rhonchi Extrem: no cyanosis, edema or clubbing Skin: no obvious rashes or abnormalities Psych: Euthymic, linear thoughts, normal rate of speech No results found for any visits on 06/12/19. Assessment & Plan: Kim Johnson, 19 year old female who presents with: Viral URI with cough Normal lung exam and stable vitals, her concerns about her period of tachycardia I explained was likely due to autonomic regulation from her going from laying to standing and going up a flight of stairs. She shows no heart abnormalities on exam at this time. I encouraged she stay hydrated to not worsen this. Concern for pneumonia is low based on exam/history/vitals. Treatment with DM/tessalon/honey recommended for cough. F/u as needed. - benzonatate (TESSALON) 100 MG capsule Dispense: 21 capsule; Refill: 1 Paramjit Davis MD [facility] The use of [employer] dictation services may have been used to construct the content in this note; any grammatical or spelling errors are non- intentional. Please contact the author of this note directly if you are in need of any clarification. MENT WORKER documented in this encounter Plan of Treatment Upcoming Encounters Date Type Specialty Care Team Description 04/28/2022 Office Visit Family Practice Anthony Doe PA-C [address] [place], [place] [phone] (Jefferson carlson) 05/03/2022 Office Visit Dermatology Neil Kent M D [address] [place] [phone] (Jefferson carlson) 05/05/2022 Office Visit Optometry Yeny David, OD [address] [facility] [address] [place] [phone] (Wo rk) 05/11/2022 Virtual Visit Pharm Diana Eckert , [facility] [address] [place] [address] (Wo rk) 05/14/2022 Office Visit Cardiology Livan Sharif MD [address], [facility] [address] [place], [place] [address] (Wo rk) 05/31/2022 Office Visit Family Practice Valery Veronica PA-C [address] [place], [place] [address] (Wo rk) documented as of this encounter Visit Diagnoses Diagnosis Viral URI with cough - Primary Acute upper respiratory infections of un specified site documented in this encounter Additional Health Concerns Assessment Noted Time PHQ-9 Depression Total Score: 4 05/02/2019 9:51 AM CDT documented as of this encounter Care Teams Director Of Search Engine Optimization Relationship Specialty Start Date End Date Rakesh Cid, PCP - General Physician Customer Contact Specialist - 05/14/19 04/29/20 R[place] Medical Rakesh Cid, Assigned PCP 05/06/19 PAUcheC [address] [place] [address] documented as of this encounter
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
--- OUTSIDE RECORDS SUMMARY | 2022-04-28 01:24 | XMS_ITS | Encounter Summary ---
:2000 Author Organization [facility] Address [address] [place] [address] Care Team Providers Name Role Phone Noe Egan MD Unavailable Annabelle Lagunas APRN DISTRIBUTION DRIVER Primary Care Provider [phone] Encounter Details Date Type Department Care Team Description 05/02/2019 Travel Social History Tobacco Use Types Packs/Day Years Used Date Smoking Tobacco: Light Smoker Cigarettes 0 Other Smokeless Tobacco: Never Comments: Vaping Alcohol [...] How often do you attend restorationist or restorationism services? Never 09/22/2021 Do you [...] Office Visit Family Practice Anthony Doe, PA-C [address] [place], [place] [phone] (Wo rk) 05/03/2022 Office Visit Dermatology Neil Kent M D [address] [place], [place] [address] (Wo rk) 05/05/2022 Office Visit Optometry Yeny David, OD [address] [facility] [facility] [address] [place], [place] [phone] (Wo rk) 05/11/2022 Virtual Visit Pharm D Diana Desir , [facility] [address] [place], [place] [address] (Wo rk) 05/14/2022 Office Visit Cardiology Livan Sharif MD [address] [facility] [address] [place], [place] [address] (Wo rk) 05/31/2022 Office Visit Family Practice Valery Veronica PAUcheC [address] [place], [place] [address] (Wo rk) documented as of this encounter Visit Diagnoses Not on filedocumented in this encounter Additional Health Concerns Assessment Noted Time PHQ-9 Depression Total Score: 4 05/02/2019 9:51 AM CDT documented as of this encounter Care Teams Director Of Adult Epilepsy Relationship Specialty Start Date End Date Annabelle Lagunas, PCP - General Nurse Practitioner - Family 05/13/19 ELASTIC ASSEMBLER DISTRIBUTION DRIVER Noe Egan, Assigned PCP 09/07/1805/05 [address] [address] [address] documented as of this encounter
--- OUTSIDE RECORDS SUMMARY | 2022-04-28 01:24 | XMS_ITS | Encounter Summary ---
:2000 Author Organization [facility] Address [address] [place] [address] Care Team Providers Name Role Phone Rakesh Cid PA-C Unavailable [phone] Rakesh Cid PA-C Primary Care Provider [phone] Encounter Details Date Type Department Care Team Description 08/16/2019 Travel Social History Tobacco Use Types Packs/Day [...] How often do you attend moravian or anabaptism services? Never 09/22/2021 Do you [...] Office Visit Family Practice Anthony Doe, PAUcheC [address] [place], [place] [phone] (Wo rk) 05/03/2022 Office Visit Dermatology Neil Kent M D [address] [place], [place] [address] (Wo rk) 05/05/2022 Office Visit Optometry Yeny David, OD [address] [facility] [address] [place], [place] [phone] (Wo rk) 05/11/2022 Virtual Visit Pharm D Diana Desir , [facility] [address] [place], [place] [address] (Wo rk) 05/14/2022 Office Visit Cardiology Livan Sharif MD [address] [facility] [address] , [facility] [address] [place], [place] [address] (Wo rk) 05/31/2022 Office Visit Family Practice Valery Veronica PAUcheC [address] [place], [place] [address] (Wo rk) documented as of this encounter Visit Diagnoses Not on filedocumented in this encounter Additional Health Concerns Assessment Noted Time PHQ-9 Depression Total Score: 4 05/02/2019 9:51 AM CDT documented as of this encounter Care Teams District Court Reporter Relationship Specialty Start Date End Date Rakesh Cid, PCP - General Physician Language Interpreter - 05/14/19 04/29/20 [facility] Medical Rakesh Cid, Assigned PCP 05/06/19 [place] [address] [place] [address] documented as of this encounter
--- OUTSIDE RECORDS SUMMARY | 2022-04-28 01:24 | XMS_ITS | Encounter Summary ---
:2000 Author Organization [facility] Address [address] [place] [address] Care Team Providers Name Role Phone Rakesh Cid PA-C Unavailable [phone] Rakesh Cid PA-C Primary Care Provider [phone] Encounter Details Date Type Department Care Team Description 11/05/2019 Travel Social History Tobacco Use Types Packs/Day [...] How often do you attend scientology or confucianist services? Never 09/22/2021 Do you [...] been in contact with No / Unsure 11/02/2019 2:23 PM CDT someone who was confirmed or suspected to have Coronavirus / COVID-19? documented as of this encounter Plan of Treatment Upcoming Encounters Date Type Specialty Care Team Description 04/28/2022 Office Visit Family Practice Anthony Doe, PAUcheC [address] [place], [place] [phone] (Wo rk) 05/03/2022 Office Visit Dermatology Neil Kent M D [address] [place], [place] [address] (Wo rk) 05/05/2022 Office Visit Optometry Yeny David, OD [address] [facility] [address] [place], [place] [phone] (Wo rk) 05/11/2022 Virtual Visit Pharm D Diana Desir , [facility] [address] [place], [place] [phone] (Wo rk) 05/14/2022 Office Visit Cardiology Livan Sharif MD [address] [facility] [address] [place], [place] [address] (Wo rk) 05/31/2022 Office Visit Family Practice Valery Veronica PABaldo [address] [place], [place] [address] (Wo rk) documented as of this encounter Visit Diagnoses Not on filedocumented in this encounter Additional Health Concerns Assessment Noted Time PHQ-9 Depression Total Score: 1 09/11/2019 1:42 PM PEACH GROWER documented as of this encounter Care Teams District Court Judge Relationship Specialty Start Date End Date Rakesh Cid, PCP - General Physician Malt Liquors Sales Supervisor - 05/14/19 04/29/20 [facility] Medical Rakesh Cid, Assigned PCP 05/06/19 PA-C [address] [facility] [place] [address] documented as of this encounter
--- OUTSIDE RECORDS SUMMARY | 2022-04-28 01:24 | XMS_ITS | Encounter Summary ---
:2000 Author Organization [facility] Address [address] [place] [address]. [place] [address] Care Team Providers Name Role Phone Rakesh Cid PA-C Unavailable [phone] Rakesh Cid PA-C Primary Care Provider [phone] Encounter Details Date Type Department Care Team Description 08/16/2019 Telephone [facility] Rakesh Cid [place] PA-C [address] [facility], [address] [place] [address] [address] [place] [address] [place] [address] [phone] Social History Tobacco Use Types Packs/Day Years [...] How often do you attend buddhism or religion services? Never 09/22/2021 Do you [...] or slept in a fdc (including now)? Sex Assigned at Date Recorded Female 03/02/2021 5:45 PM CDT documented as of this encounter Plan of Treatment Upcoming Encounters Date Type Specialty Care Team Description 04/28/2022 Office Visit Family [facility] Anthony Doe, PA-C [address] [place], [place] [phone] (Wo rk) 05/03/2022 Office Visit Dermatology Neil Kent M D [address] [place] [address] (Wo rk) 05/05/2022 Office Visit Optometry Yeny David, OD [address] [facility] [address] [place] [phone] (Wo rk) 05/11/2022 Virtual Visit Pharm D Diana Desir , [facility] [address] [place], [place] [address] (Wo rk) 05/14/2022 Office Visit Cardiology Livan Sharif MD [address] [place], [place] [phone] (Wo rk) 05/31/2022 Office Visit Family Practice Valery Veronica , PA-C [address] [place] [address] (Wo rk) documented as of this encounter Visit Diagnoses Not on filedocumented in this encounter Additional Health Concerns Assessment Noted Time PHQ-9 Depression Total Score: 4 05/02/2019 9:51 AM CDT documented as of this encounter Care Teams Machine Chocolate Molder Relationship Specialty Start Date End Date Rakesh Cid, PCP - General Physician Assistant Art Director - 05/14/19 04/29/20 PAU[facility] Medical Rakesh Cid, Assigned PCP 05/06/19 PA-C [address] [place] [address] documented as of this encounter
--- OUTSIDE RECORDS SUMMARY | 2022-04-28 01:24 | XMS_ITS | Encounter Summary ---
:2000 Author Organization [place] Address [address] [place] [address] Care Team Providers Name Role Phone Rakesh Cid PA-C Unavailable [phone] Rakesh Cid PA-C Primary Care Provider [phone] Lita Oseguera Unavailable Unavailable Rakseh Cid PA-C Unavailable [phone] Isaura Lamar RN Unavailable Unavailable Lita Oseguera Unavailable Unavailable Marija Edgar APRN INDUSTRIAL REFRIGERATION MECHANIC Primary Care Provider [phone] Chanelle Mccann APRN CN Unavailable + Lesley Moody MA Unavailable Kyara De La Fuente RN Unavailable Marija Edgar APRN INDUSTRIAL REFRIGERATION MECHANIC Unavailable Mynor Broussard MD Unavailable Keisha Dotson MD Unavailable Mary Mejia Unavailable Unavailable Stacey Briones SPOOLING 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 Unavailable Lesley Moody MA Unavailable Mary Mejia Unavailable Unavailable Lita Oseguera Unavailable Unavailable Galo Burrell MD Unavailable Cristina Wood Unavailable Unavailable Fransisco Lesley C MA Unavailable Meredith Bedoya Unavailable Unavailable Cristina Wood Unavailable Unavailable Diana Desir [facility] Unavailable Rain Galaviz PA-C Unavailable [phone] Summer Lara MD Unavailable Summer Lara MD Unavailable + Summer Lara MD Unavailable Tavia Wyatt MD Unavailable Unavailable Johnny Murillo MD Unavailable [phone] Erica Farrell APRN [facility] Unavailable [phone] Teresita Bean [facility] Unavailable [phone] Reason for Visit Reason Onset Date Comments Refill Request 05/23/2019 SERTRALINE Encounter Details Date Type Department Care Team Description 05/23/2019 [facility] Rakesh Cid Refill Request Clinic [place] ROVERTO Landers (SERTRALINE ) [address] [facility], [address] [place] [address] [place] [address] [place], [place] [phone] (Wo rk) [address] [phone] Social History Tobacco Use Types Packs/Day Years [...] How often do you attend baptist or voodoo services? Never 09/22/2021 Do you [...] this encounter Miscellaneous Notes Telephone Encounter - Katerine Waggoner RN - 05/23/2019 2:26 PM CST Routing refill request to provider for review/approval because: Med showing as historical, BRITTANY note: 2. Anxiety She can call when next zoloft Rx needed. KALYN-7 SCORE 10/02/2018 05/02/2019 Total Score - 4 (minimal anxiety) Total Score 18 4 ?? PHQ-9 SCORE 10/02/2018 05/02/2019 PHQ-9 Total Score MyChart 10 (Moderate depression) 4 (Minimal depression) PHQ-9 Total Score 10 4 ?? Katerine Waggoner RN -- [facility] L OPPORTUNITY ASSISTANT Telephone Encounter - Sarah Ramos - 05/23/2019 2:12 PM CST Requested Prescriptions Pending Prescriptions Disp Refills ??? sertraline (ZOLOFT) 100 MG tablet Sig: Take 1 tablet (100 mg) by mouth daily (Historical) Last Office Visit with [facility], [facility] or [facility] prescribing provider: No previous visit found Future Office Visit: SSRIs Protocol Passed - 05/23/2019 2:11 PM PHQ-9 SCORE 10/02/2018 05/02/2019 PHQ-9 Total Score MyChart 10 (Moderate depression) 4 (Minimal depression) PHQ-9 Total Score 10 4 KALYN-7 SCORE 10/02/2018 05/02/2019 Total Score - 4 (minimal anxiety) Total Score 18 4 Passed - Recent (12 mo) or future (30 days) visit within the authorizing provider's specialty Patient has had an office visit with the authorizing provider or a provider within the authorizing providers department within the previous 12 mos or has a future within next 30 days. See Patient Info tab in inbasket, or Choose Columns in Meds & Orders section of the refill encounter. Passed - Medication is active on med list Passed - Patient is age 18 or older Passed - No active on record Passed - No positive test in last 12 months L OPPORTUNITY ASSISTANT documented in this encounter Plan of Treatment Upcoming Encounters Date Type Specialty Care Team Description 04/28/2022 Office Visit Family Practice Anthony Doe, ROVERTO [address] [place] [address] (Wo rk) 05/03/2022 Office Visit Dermatology Neil Kent M D [address] [place], [place] 487025 (Wo rk) 05/05/2022 Office Visit Optometry Yeny David, OD [address] [place] [id number] (Wo rk) 05/11/2022 Virtual Visit Pharm D Diana Desir , [facility] [address] [place], [place] [address] (Wo rk) 05/14/2022 Office Visit Cardiology Livan Sharif MD [address] [place] [address] (Wo rk) 05/31/2022 Office Visit Family Practice Valery Veronica PA-C [address] [place] [address] (Wo rk) documented as of this encounter Visit Diagnoses Diagnosis Anxiety - Primary Anxiety state, unspecified documented in this encounter Additional Health Concerns Infection Onset Date Last Indicated Resolved Time Rule Out COVID-19 07/30/2020 07/30/2020 07/30/2020 7:1 1 PM EQUAL OPPORTUNITY ASSISTANT Rule Out COVID-19 08/30/2020 08/30/2020 08/30/2020 5:0 5 PM EQUAL OPPORTUNITY ASSISTANT Rule Out COVID-19 09/24/2020 09/24/2020 09/24/2020 9:2 4 AM CDT Rule Out COVID-19 11/05/2020 11/05/2020 11/06/2020 1:0 9 PM CDT Rule Out COVID-19 05/11/2021 05/11/2021 05/13/2021 10: 18 AM CDT Rule Out COVID-19 07/13/2021 07/13/2021 07/14/2021 3:0 4 PM EQUAL OPPORTUNITY ASSISTANT Rule Out COVID-19 07/18/2021 07/18/2021 07/20/2021 1:5 6 PM EQUAL OPPORTUNITY ASSISTANT COVID-19 07/18/2021 07/18/2021 08/08/2021 11:39 PM EQUAL OPPORTUNITY ASSISTANT Assessment Noted Time PHQ-9 Depression Total Score: 4 05/02/2019 9:51 AM CDT documented as of this encounter Care Teams Mitering Machine Operator Relationship Specialty Start Date End Date Rakesh Cid PCP - General Physician Security System Analyst - 05/14/19 1 ROVERTO Landers Medical Marija Edgar PCP - General Nurse Practitioner 04/30/20 INSIGHTS MANAGER INDUSTRIAL REFRIGERATION MECHANIC [address] [place], [place] [phone] Rakesh Cid Assigned PCP 05/06/19 03/01/20 ROVERTO Landers [address] [place], [place] [phone] Lita Oseguera Personal Advocate & 02/28/20 Liaison (PAL) Rakesh Cid Assigned PCP 03/02/20 06/07/20 ROVERTO Landers [address] [place] [place], [place] [phone] Isaura Lamar, Personal Advocate & Family Practice 04/03/20 garment supervisor (PAL) Lita Oseguera Personal Advocate & 04/07/20 Liaison (PAL) Chanelle Mccann Assigned OBGYN Provider 05/02/20 05/09/21 Elyse Mooney APRN CNM [address] [address] [address] [place], [place] [address] Lesley Moody Community Health Worker 05/30/20 06/08/20 JOSE ALBERTO Avendano Kyara De La Fuente, Specialty Care Neurology 06/04/20 03/05/21 RN Coordinator Marija Edgar, Assigned PCP 06/08/20 INSIGHTS MANAGER INDUSTRIAL REFRIGERATION MECHANIC [address] [place], [place] [phone] Mynor Broussard MD Assigned Surgical 06/01/20 11/28/21 [address] [facility] Provider [address] [place], [place] [address] Melody Dotson Neuroscience 06/04/20 MD Keisha Provider [address] [place], [place] [address] Mary Mejia Financial Resource 08/07/2008/11 Worker Stacey Briones, Lead Black Ash Worker Primary Care - CC 08/11/20 12/30/20 [facility] Lesley Moody [facility] Health Worker 08/11/20 10/01/20 JOSE ALBERTO Avendano Mary Mejia Financial Resource 09/02/2009/09 Worker Lita Oseguera Personal Advocate & Family Medicine 09/10/20 09/21/20 Liaison (PAL) Galo Burrell MD Assigned Heart and 10/05/20 04/02/22 [address] [facility] Vascular Provider [address] [place] [address] rCistina Wood Financial Resource 10/07/20 10/14/20 Worker Lesley Moody [facility] Health Worker 10/23/20 12/30/20 JOSE ALBERTO Avendano Meredith Bedoya Financial Resource 10/23/20 11/23/20 Worker Cristina Wood Financial Resource 02/09/21 02/09/21 Worker Diana Desir, Pharmacist Pharmacist 04/17/21 [facility] [address] [place] [address] Rain Galaviz Physician Security System Analyst Dermatology 04/28/21 ROVERTO Paredes [address] [place] [address] [address] [facility] [place] [phone] Summer Lara MD Assigned OBGYN Provider 05/10/21 05/23/21 [address] [place], [place] [phone] Summer Lara MD Assigned OBGYN Provider 05/31/21 03/12/[address] [place], [place] [phone] Summer Lara MD Assigned OBGYN Provider 05/24/21 05/30/[address] [place] [address] Tavia Wyatt MD Dermatology 07/14/21 Johnny Medrano Assigned Musculoskeletal 08/30/21 03/17/22 MD Ish Provider [address] [place] [address] Erica Farrell Nurse Practitioner Cardiovascular Disease 09/09/21 ARLENE Guidry INDUSTRIAL REFRIGERATION MECHANIC [address] [facility] [address] [place] [address] Teresita Bean Pharmacist Pharmacist 09/24/21 09/29/21 Walter [facility] [address] [facility] [place] [address] documented as of this encounter
--- OUTSIDE RECORDS SUMMARY | 2022-04-28 01:24 | XMS_ITS | Encounter Summary ---
:2000 Author Organization [place] Address [address] [place] [address] Care Team Providers Name Role Phone Rakesh Cid PA-C Unavailable [phone] Rakesh Cid PA-C Primary Care Provider [phone] Encounter Details Date Type Department Care Team Description 11/02/2019 Travel Social History Tobacco Use Types Packs/Day [...] How often do you attend mu-ism or hinduism services? Never 09/22/2021 Do you [...] Office Visit Family Practice Anthony Doe, PAUcheC [address] [place], [place] [phone] (Wo rk) 05/03/2022 Office Visit Dermatology Neil Kent M D [address] [place], [place] [address] (Wo rk) 05/05/2022 Office Visit Optometry Yeny David, OD [address] [place], [place] [phone] (Wo rk) 05/11/2022 Virtual Visit Pharm D Diana Desir , [facility] [address] [place], [place] [phone] (Wo rk) 05/14/2022 Office Visit Cardiology Livan Sharif MD [address] [facility] [address] [place], [place] [address] (Wo rk) 05/31/2022 Office Visit Family Practice Valery Veronica PABaldo [address] [place], [place] [address] (Wo rk) documented as of this encounter Visit Diagnoses Not on filedocumented in this encounter Additional Health Concerns Assessment Noted Time PHQ-9 Depression Total Score: 1 09/11/2019 1:42 PM CALIBRATOR BAROMETERS documented as of this encounter Care Teams Gaming Investigator Relationship Specialty Start Date End Date Rakesh Cid, PCP - General Physician Laser Beam Trim Operator - 05/14/19 04/29/20 ROVERTO Medical Rakesh Cid, Assigned PCP 05/06/19 PA-C [address] [facility] [place] [address] documented as of this encounter
--- OUTSIDE RECORDS SUMMARY | 2022-04-28 01:24 | XMS_ITS | Encounter Summary ---
:2000 Author Organization [place] Address [address] [place] [address] Care Team Providers Name Role Phone Rakesh Cid PA-C Unavailable [phone] Rakesh Cid PA-C Primary Care Provider [phone] Encounter Details Date Type Department Care Team Description 05/14/2019 Travel Social History Tobacco Use Types Packs/Day [...] How often do you attend samaritan or episcopalian services? Never 09/22/2021 Do you [...] Office Visit Family Practice Anthony Doe, PAUcheC [address] [place], [place] [phone] (Wo rk) 05/03/2022 Office Visit Dermatology Neil Kent M D [address] [place], [place] [address] (Wo rk) 05/05/2022 Office Visit Optometry Yeny David, OD [address] [facility] [address] [place] [phone] (Wo rk) 05/11/2022 Virtual Visit Pharm D Diana Desir , [facility] [address] [place], [place] [address] (Wo rk) 05/14/2022 Office Visit Cardiology Livan Sharif MD [address] [facility] L[place] , [facility] [address] [place], [place] [address] (Wo rk) 05/31/2022 Office Visit Family Practice Valery Veronica PAUcheC [address] [place], [place] [address] (Wo rk) documented as of this encounter Visit Diagnoses Not on filedocumented in this encounter Additional Health Concerns Assessment Noted Time PHQ-9 Depression Total Score: 4 05/02/2019 9:51 AM CDT documented as of this encounter Care Teams Oysterman Relationship Specialty Start Date End Date Rakesh Cid, PCP - General Physician Service Unit Operator - 05/14/19 04/29/20 ROVERTO Medical Rakesh Cid, Assigned PCP 05/06/19 R[place]ERT[place] [address] [place] [address] documented as of this encounter
--- OUTSIDE RECORDS SUMMARY | 2022-04-28 01:24 | XMS_ITS | Encounter Summary ---
:2000 Author Organization [place] Address [address] [place] [address]. [place] [address] Care Team Providers Name Role Phone Rakesh Cid PA-C Unavailable [phone] Rakesh Cid PA-C Primary Care Provider [phone] Reason for Referral Diagnostic Imaging Ultrasound (Routine) - Closed Specialty Diagnoses / Procedures Referred By Contact Refer red To Contact Diagnoses Pelvic pain in female Complication of intrauterine device (IUD), unspecified complication, initial encounter (H) Queta Beltre Procedures US Pelvic Complete w Transvaginal ROVERTO Benitez [address] [address] [facility] [place] [address] Referral ID Status Reason Start Date Expiration Date Visits Requ ested Visits Authorized [id number] Closed 08/16/2019 08/15/2020 1 1 TYPE MACHINIST APPRENTICE Reason for Visit Reason Comments iud may have been moved lot of lower abdominal press ure pain - last night Encounter Details Date Type Department Care Team Description 08/16/2019 Office Visit [facility] Patt, Pelvic pain in female (Primary Dx); Clinic [place] Queta Benitez PA-C Complication of intrauterine device (IUD ), unspecified complication, initial encounter (H) [address] [facility] [address] [place] [address] [phone] Social History Tobacco Use Types Packs/Day Years [...] How often do you attend amish or advent services? Never 09/22/2021 Do you [...] Sign Reading Time Taken Comments Blood Pressure 103/60 08/16/2019 1:35 PM LINOTYPE MACHINIST APPRENTICE Pulse 76 08/16/2019 1:35 PM LINOTYPE MACHINIST APPRENTICE Temperature 36.7 ??C (98.1 ??F) 08/16/2019 1:35 PM LINOTYPE MACHINIST APPRENTICE Respiratory Rate - - Oxygen Saturation 99% 08/16/2019 1:35 PM LINOTYPE MACHINIST APPRENTICE Inhaled Oxygen Concentration - - Weight 77.2 kg (170 lb 1.6 oz) 08/16/2019 1:35 PM LINOTYPE MACHINIST APPRENTICE Height 167.6 cm (5' 6) 08/16/2019 1:35 PM LINOTYPE MACHINIST APPRENTICE Body Mass Index 27.45 08/16/2019 1:35 PM LINOTYPE MACHINIST APPRENTICE documented in this encounter Patient Instructions Patient InstructionsAaQueta Sheets PA-C - 08/16/2019 1:45 PM LINOTYPE MACHINIST APPRENTICE (R10.2) Pelvic pain in female (primary encounter diagnosis) Comment: Plan: NEISSERIA GONORRHOEA PCR, CHLAMYDIA TRACHOMATIS PCR, US Pelvic Complete w Transvaginal (T83.9XXA) Complication of intrauterine device (IUD), unspecified complication, initial encounter (H) Comment: Plan: US Pelvic Complete w Transvaginal Call [phone] to make appointment TYPE MACHINIST APPRENTICE documented in this encounter Progress Notes Queta Beltre PA-C - 08/16/2019 1:45 PM CST Subjective Kim Johnson is a 19 year old female who presents to clinic today for the following health issues: HPI Has had mirena for over Year and had sex last night and extremely painful Check if iud is in place - pt. Had intercourse last night - has some abdominal pain Has low pelvic pain. No dysuria and not other symptosm. Current Outpatient Medications Medication Sig Dispense Refill ??? ferrous sulfate (FEROSUL) 325 (65 Fe) MG tablet Take 325 mg by mouth ??? levonorgestrel (MIRENA, 52 MG,) 20 MCG/24HR IUD 1 each by Intrauterine route ??? naproxen (NAPROSYN) 500 MG tablet Take 500 mg by mouth ??? sertraline (ZOLOFT) 100 MG tablet Take 1 tablet (100 mg) by mouth daily 90 tablet 1 ??? triamcinolone (KENALOG) 0.1 % external cream Apply topically 2 times daily 80 g 1 ??? zonisamide (ZONEGRAN) 100 MG capsule Take 2 capsules (200 mg) by mouth 2 times daily 60 capsule ??? benzonatate (TESSALON) 100 MG capsule Take 1 capsule (100 mg) by mouth 3 times daily as needed for cough (Patient not taking: Reported on 08/16/2019) 21 capsule 1 ??? guaiFENesin-codeine (ROBITUSSIN AC) 100-10 MG/5ML solution Take 5-10 mLs by mouth every 4 hours as needed (Patient not taking: Reported on 08/16/2019) 120 mL 0 ??? tiZANidine (ZANAFLEX) 4 MG tablet Take 1 tablet (4 mg) by mouth nightly as needed for muscle spasms (Patient not taking: Reported on 08/16/2019) 30 tablet 0 BP Readings from Last 3 Encounters: 08/16/19 103/60 06/16/19 100/74 06/12/19 98/62 Wt Readings from Last 3 Encounters: 08/16/19 77.2 kg (170 lb 1.6 oz) (92 %)* 06/16/19 76.2 kg (168 lb) (92 %)* 05/17/19 76.2 kg (168 lb) (92 %)* * Growth percentiles are based on CDC (Girls, 2-20 Years) data. Reviewed and updated as needed this visit by Provider Review of Systems ROS COMP: Constitutional, HEENT, cardiovascular, pulmonary, gi and gu systems are negative, except as otherwise noted. Objective BP 103/60 (BP Location: Right arm, Patient Position: Chair, Cuff Size: Adult Large) Pulse 76 Temp 98.1 ??F (36.7 ??C) (Oral) Ht 1.676 m (5' 6) Wt 77.2 kg (170 lb 1.6 oz) SpO2 99% BMI 27.45kg/m?? Body mass index is 27.45 kg/m??. Physical Exam GENERAL: healthy, alert and no distress RESP: lungs clear to auscultation - no rales, rhonchi or wheezes CV: regular rate and rhythm, normal S1 S2, no S3 or S4, no murmur, click or rub, no peripheral edemaand peripheral pulses strong (female): normal female external genitalia, normal urethral meatus, vaginal mucosa, normal cervix/adnexa/uterus without masses or discharge. iud string visible Diagnostic Test Results: Labs reviewed in Epic Assessment & Plan 1. Pelvic pain in female - NEISSERIA GONORRHOEA PCR - CHLAMYDIA TRACHOMATIS PCR - US Pelvic Complete w Transvaginal; Future 2. Complication of intrauterine device (IUD), unspecified complication, initial encounter (H) - US Pelvic Complete w Transvaginal; Future Well get std screening and US to check iud placment Please follow-up if symptoms fail to resolve or worsen No follow-ups on file. Queta Beltre PA-C [facility] TYPE MACHINIST APPRENTICE documented in this encounter Plan of Treatment Upcoming Encounters Date Type Specialty Care Team Description 04/28/2022 Office Visit Family [facility] Anthony Doe PA-C [address] [place] [address] (Wo rk) 05/03/2022 Office Visit Dermatology Neil Kent M D [address] [place] [address] (Wo rk) 05/05/2022 Office Visit Optometry Yeny David, OD [address] [facility] [address] [place] [phone] (Wo rk) 05/11/2022 Virtual Visit Pharm Diana Eckert , [facility] [address] [place], [place] [address] (Wo rk) 05/14/2022 Office Visit Cardiology Livan Sharif MD [address] [place], [place] [address] (Wo rk) 05/31/2022 Office Visit Family Practice Valery Veronica PA-C [address] [place], [place] [address] (Wo rk) documented as of this encounter Procedures Procedure Name Priority Date/Time Associated Comments Diagnosis NEISSERIA GONORRHOEAE Routine 08/16/2019 2:25 PM Pelvic pain i n Results for this PCR LINOTYPE MACHINIST APPRENTICE female procedure are i n the results section. CHLAMYDIA TRACHOMATIS Routine 08/16/2019 2:25 PM Pelvic pain i n Results for this PCR LINOTYPE MACHINIST APPRENTICE female procedure are i n the results section. documented in this encounter Results (ABNORMAL) US Pelvic Complete w Transvaginal (11/02/2019 3:02 PM CDT) Anatomical Region Laterality Modality Abdomen/Pelvis Ultrasound Specimen (Source) Anatomical Location Collection Method / Collectio n Time Received Time / Laterality Volume Narrative 11/03/2019 8:35 PM CDT ULTRASOUND - PELVIC HAT CONDITIONER [facility] Obstetrics & Gynecology [address] [place] [address] ?? Referring MD: Queta Beltre Primary Clinic: [facility] ? CLINICAL INFORMATION ?? Indications for ultrasound: Bleeding/Menses - AUB and Pain - Pelvic pain Check IUD ?? LMP: 30 Oct 2019 ?Hormones: IUD lindsay na ?? Measurements: Uterus: ??7.5 x 4.2 x 3.6 cm ?? Position is anteverted. ??Contour is smt h/reg. ?? Endo cav: 4.8 mm ? Smooth/regular /wnl Cervix: wnl ?? Right ovary: 1.8 x 2.7 x 2.8 cm ??Wnl Left ovary: ?? 2.0 x 2.8 x 1.4 cm Wnl ?? Cul de sac: no free fluid ?? *Other findings: ?? Complete pelvic ultrasound using realtim e transabdominal and transvaginal scanning . Bladder appears normal. Normal uterus Normal bilateral ovaries Malpositioned IUD, in the lower uterus/u pper cervix IUD is malpositioned or low lying. The IUD should be removed and/or replace d, and should not be relied on for control in the interim. Bita Foster MD Obstetrics and Gynecology [facility] Queta Beltre PA-C [facility] US ORDERABLES CHLAMYDIA TRACHOMATIS PCR (08/16/2019 2:25 PM LINOTYPE MACHINIST APPRENTICE) Patholo gist Method Time Signature Specimen Urine 08/16/2019 LESLIE Description 2:26 PM LINOTYPE MACHINIST APPRENTICE [facility] Chlamydia Negative NEG^Negat 08/17/2019 INFECTIOUS Trachomatis PCR shyam 1:20 PM LINOTYPE MACHINIST APPRENTICE [facility] Comment: Negative for C. trachomatis rRNA by barahona scription mediated amplification. A negative result by mate relief media maddie amplification does not preclude the presence of C. trachomatis infection because results are dependent on proper and adequate collection, absence of inhibitors, and sufficient rRNA to be detected. Specimen Anatomical Collection Method Collection Time Receive d Time (Source) Location / / Volume Laterality Urine specimen 08/16/2019 2:25 PM 020 2:26 (specimen) LINOTYPE MACHINIST APPRENTICE PM LINOTYPE MACHINIST APPRENTICE Queta Beltre PA-C LAB - MICRO GENERAL OR DERABLES Performing Organization Address City/State/ZIP Code Phon e Number INFECTIOUS DISEASES [address] [place] [address] DIAGNOSTIC LABORATORY, [facility] [address] [place] [address] INFECTIOUS DISEASES [address] [place] [address], A [facility]IC LAB[facility]ORY NEISSERIA GONORRHOEA PCR (08/16/2019 2:25 PM LINOTYPE MACHINIST APPRENTICE) Analysis Performed At [facility] logist Time Signature Specimen Urine 08/16/2019 LESLIE Descrip 2:26 PM LINOTYPE MACHINIST APPRENTICE [facility] N Gonorrhea Negative NEG^Negati 08/17/2019 INFECTIOUS PCR ve 1:20 PM LINOTYPE MACHINIST APPRENTICE [facility] Comment: Negative for N. gonorrhoeae rRNA by barahona scription mediated amplification. A negative result by mate relief media maddie amplification does not preclude the presence of N. gonorrhoeae infection because results are dependent on proper and adequate collection, absence of inhibitors, and sufficient rRNA to be detected. Specimen Anatomical Collection Method Collection Time Receive d Time (Source) Location / / Volume Laterality Urine specimen 08/16/2019 2:25 PM 020 2:26 (specimen) LINOTYPE MACHINIST APPRENTICE PM LINOTYPE MACHINIST APPRENTICE Queta Beltre PA-C LAB - MICRO GENERAL OR DERABLES Performing Organization Address City/State/ZIP Code Phon e Number INFECTIOUS DISEASES [address] [place] [address] DIAGNOSTIC LABORATORY, [facility] [address] [place] [address] INFECTIOUS DISEASES [address] [place] [address], [place] [facility] documented in this encounter Visit Diagnoses Diagnosis Pelvic pain in female - Primary Unspecified symptom associated with fema le genital organs Complication of intrauterine device (IUD ), unspecified complication, initial encounter (H) Pelvic pain in female Unspecified symptom associated with fema le genital organs Complication of intrauterine device (IUD ), unspecified complication, initial encounter (H) documented in this encounter Additional Health Concerns Assessment Noted Time PHQ-9 Depression Total Score: 4 05/02/2019 9:51 AM CDT documented as of this encounter Care Teams Molding Associate Relationship Specialty Start Date End Date Rakesh Cid, PCP - General Physician Deputy Sheriff Civil Division - 05/14/19 04/29/20 ROVERTO Medical Rakesh Cid, Assigned PCP 05/06/19 ROVERTO [address] [place] [address] documented as of this encounter
--- OUTSIDE RECORDS SUMMARY | 2022-04-28 01:24 | XMS_ITS | Encounter Summary ---
:2000 Author Organization [place] Address [facility] [place] [address] Care Team Providers Name Role Phone Rakesh Cid PA-C Unavailable [phone] Rakesh Cid PA-C Primary Care Provider [phone] Reason for Visit Reason Comments Procedure IUD removal due to displacem ent Encounter Details Date Type Department Care Team Description 11/05/2019 Office Visit [facility] Chanelle Johnston for removal of intrauterine contraceptive device (Primary Dx); [facility] of [facility]; [facility] Screen for STD (sexually transmitted dis ease) [address] [address] [address] [address] [place] [phone] Social History Tobacco Use Types Packs/Day Years [...] How often do you attend judaism or episcopal services? Never 09/22/2021 Do you [...] or slept in a jail (including now)? Sex Assigned at Date Recorded Female 03/02/2021 5:45 PM CDT COVID-19 Exposure Response Date Recorded In the last month, have you been in contact with No / Unsure 11/02/2019 2:23 PM CDT someone who was confirmed or suspected to have Coronavirus / COVID-19? documented as of this encounter Last Filed Vital Signs Vital Sign Reading Time Taken Comments Blood Pressure 128/80 11/05/2019 1:01 PM CDT Pulse - - Temperature - - Respiratory Rate - - Oxygen Saturation - - Inhaled Oxygen Concentration - - Weight 82.6 kg (182 lb) 11/05/2019 1:01 PM CDT Height - - Body Mass Index 29.83 09/11/2019 1:38 PM CAMPUS DIRECTOR documented in this encounter Patient Instructions Patient InstructionsChanelle Johnston APRN CNM - 11/05/2019 1:00 PM CDT Progesterone Only Oral Contraceptive Pills (POPs/Minipill) Minipills contain only progesterone. Combined pills contain both estrogen and progesterone. Minipills are a great option for women who are or for women who cannot take estrogen. POPs do not increase your risk for blood clots like combined OCP's do. Women who are should callto change contraceptive type when they are done . How it works: The minipill effectively prevents by actions of the progesterone hormone on various parts of the reproductive system. It makes cervical mucus too thick for sperm to move easily through, it makes the lining of the uterus too thin for a fertilized egg to grow, and it sometimes prevents ovulation all together. The minipill is slightly less effective than combined pills, the rate is about 3%. How to take the minipill: ?? Minipills come in packs containing several weeks of pills, each pill is marked in the packs so that one pill is taken every day of the week ?? Unlike combined OCPs there are no placebo pills ?? Start the first pack of pills on the first day of your menstrual period, if you are you can start the pills right away ?? It is extremely important to take the pill AT THE SAME TIME EVERY DAY (at least within the same hour) ?? As soon as you finish one pack, start another ?? If you experience illness such as nausea and vomiting or diarrhea use a backup method for 7 days Missed/forgotten pills: ?? If you miss one pill take it as soon as you remember, take your next pill the next day at your usual time and used a backup method like a condom for 7 days if it was more than 3 hours late ?? If you miss two pills do not take the missed pills, just continue taking your minipill as you normally would, but make sure to use a backup method for the duration of that package, until you start anew one ?? If you miss more than two pills please contact the clinic Menstrual changes: ?? Women taking the minipill often experience short/irregular cycles or may not have a period at all ?? You may also experience some spotting or bleeding in between your cycles Contact the clinic if: ?? You miss one or two pills and then do not get a period ?? If you have been experiencing normal periods and unexpectedly miss one ?? If you have any symptoms of such as breast tenderness, increased tiredness, or crampingin your lower abdomen ?? If you have heavy or prolonged bleeding, abdominal pain, fever, or cramps You can stop taking the minipill if you wish to get . Please call with any questions or concerns: Bob Piper [phone] documented in this encounter Progress Notes Chanelle Johnston APRN CNM - 11/05/2019 1:00 PM CDT SUBJECTIVE: Kim Johnson is a 19 year old who presents to the clinic for IUD removal and discussion of other control methods. She has used the following methods in the past: COCs, Mirena IUD and Nexplanon. HPI: Kim had the Mirena IUD placed over a year ago; pt is unsure of exact date and was placed at an outside facility. Records do indicate she was seen in August 2018 for a string check. This August, she was seen for pelvic pain and dyspareunia. An ultrasound was ordered but not done until this month. Patient states pain would come and go and didn't become significantly more bothersome until recently. Ultrasound on 11/02/2019 revealed malpositioned IUD in lower uterine segment/upper cervix. She also endorses breast tenderness, specifically on her right outer breast, and she is concerned about . Histories reviewed and updated Past Medical History: Diagnosis Date ??? Anxiety ??? Chronic kidney disease ??? Depressive disorder ??? Gastroesophageal reflux disease ??? Seizure (H) 05/02/2019 Past Surgical History: Procedure Laterality Date ??? GENITOURINARY SURGERY Social History Socioeconomic History ??? Marital status: [...] on file Tobacco Use ??? Smoking status: Heavy Tobacco Smoker Packs/day: 1.00 Types: Other ??? Smokeless tobacco: Never Used ??? Tobacco comment: Vaping Substance and Sexual Activity ??? Alcohol use: Not Currently ??? Drug use: No ??? Sexual activity: Yes Partners: Male control/protection: I.U.D. Lifestyle ??? Physical activity Days per week: Not on file Minutes per session: Not on file ??? Stress: Not on file Relationships ??? Social connections Talks on phone: Not on file Gets together: Not on file Attends episcopal service: Not on file Active member of club or organization: Not on file Attends meetings of clubs or organizations: Not on file Relationship status: Not on file ??? Intimate partner violence Fear of current or ex partner: Not on file Emotionally abused: Not on file Physically abused: Not on file Forced sexual activity: Not on file Other Topics Concern ??? Not on file Social History Narrative ??? Not on file Family History Problem Relation Age of Onset ??? Heart Disease Maternal Grandfather ??? Brain Tumor Sister Current Outpatient Medications Medication ??? ferrous sulfate (FEROSUL) 325 (65 Fe) MG tablet ??? levonorgestrel (MIRENA, 52 MG,) 20 MCG/24HR IUD ??? naproxen (NAPROSYN) 500 MG tablet ??? sertraline (ZOLOFT) 100 MG tablet ??? tiZANidine (ZANAFLEX) 4 MG tablet ??? triamcinolone (KENALOG) 0.1 % external cream ??? zonisamide (ZONEGRAN) 100 MG capsule No current facility-administered medications for this visit. Menstrual/PUBLIC SAFETY POLICE History: Menses irregular s/t IUD. Reports heavy periods prior to any contraception use. Started using OCPs to regulate periods as a teenager. She reports she is currently bleeding and believes to be on her period as of approximately 11/03/19. States flow is a bit heavier than usual. Has been sexually active with one partner since last STI check in August. Does not typically use condoms. Agrees to HIV/hep testing today. Health maintenance updated: yes ROS: Constitutional: negative Breast: Lumps and Tenderness Cardiovascular: negative Respiratory: negative Gastrointestinal: negative Genitourinary: Painful [place] and Pelvic Pain Skin: Psoriasis plaques; new vulvar lesion/lump Musculoskeletal: negative Psychiatric: negative EXAM: BP 128/80 (BP Location: Left arm, Cuff Size: Adult Regular) Wt 82.6 kg (182 lb) BMI 29.83 kg/m?? Body mass index is 29.83 kg/m??. Physical Exam Lungs: Respirations even, unlabored Breast: Symmetrical with scattered dry, reddened lesions consistent with psoriasis; small areas of denser breast tissue tender to palpation on outer rim of both breasts close to axillae, no defined masses or nodes palpated; no axillary adenopathy, no supraclavicular adenopathy PELVIC EXAM: Vulva: BUS WNL, small dry, reddened psoriatic lesions noted Perineum: Small lump to left of introitus noted; no redness, pus, or drainage Vagina: Discharge normal and physiologic, no lesions noted Cervix: smooth, pink, no visible lesions, IUD strings visualized and IUD removed as below IUD Removal Patient in lithotomy position. Speculum used to visualize strings of IUD. Using ring forceps, the strings were grasped and the IUD was removed intact. Patient tolerated procedure with moderate discomfort and cramping. Minimal to no bleeding during procedure. Discussed with patient possibility of having some bleeding and cramping with the IUD removal. ASSESSMENT/PLAN: ICD-10-CM 1. Encounter for removal of intrauterine contraceptive device Z30.432 HCL HCG, URINE, NURSE BACKOFFICE 2. Encounter for initial prescription of contraceptive pills Z30.011 norethindrone (MICRONOR) 0.35 MG tablet 3. Screen for STD (sexually transmitted disease) Z11.3 HIV Antigen Antibody Combo Hepatitis B Surface Antibody Hepatitis C antibody CANCELED: HCG Qual, Urine ([id number]) Kim preferred not to have the Mirena replaced today. Knows she does not want the Nexplanon based on previous experience with it and declines Depo. Had been on COCs as a teenager prior to epilespy diagnosis. She states she was not that reliable with taking her pills consistently. We did discuss othercombined methods such as the ring or patch as well, as she might find the monthly/weekly dosing moremanageable. While her epilepsy would not be a hard contraindication to combined methods, she does report a history of migraines and is on medications to treat this. She also has a family history of breast cancer for which she verbalizes concern. She feels that since she is on daily medications to treat her epilepsy, she would be able to keep a schedule with OCPs. Opts to begin POPs today. There are no contraindications to the use of POPs. COUNSELING: Call if bleeding, pain, or fever occur post IUD removal. Perineal lump consistent with plugged hair follicle. Warm compresses and daily cleasing of area encouraged. Monitor breast tenderness for changes with menstrual cycles/bleeding patterns and new contraception method. Call if persists or worsens. Reviewed risks and benefits of contraceptive use. Discussed proper use of chosen method. Emphasized importance of sticking to a strict daily schedule to ensure efficacy of POPs. Advised condoms for at least two weeks after starting pills. Emphasized condom use to protect against STIs. Handouts/Instructions provided. Chanelle Johnston DNP, ARLENE, LACI 45 minutes was spent face to face with the patient today discussing her history, diagnosis, and follow-up plan as noted above. In addition to the procedure, I spent 35 minutes on counseling and coordination of care. Total Visit Time: 45 minutes. documented in this encounter Nursing Notes Ryan Saenz MA - 11/05/2019 1:00 PM CDT Chief Complaint Patient presents with ??? Procedure IUD removal due to displacement Initial BP 128/80 (BP Location: Left arm, Cuff Size: Adult Regular) Wt 82.6 kg (182 lb) BMI 29.83 kg/m?? Estimated body mass index is 29.83 kg/m?? as calculated from the following: Height as of 09/11/19: 1.664 m (5' 5.5). Weight as of this encounter: 82.6 kg (182 lb). BP completed using cuff size: regular Questioned patient about current smoking habits. Pt. currently smokes. Advised about smoking cessation. No obstetric history on file. The following HM Due: NONE Ryan Saenz CMA documented in this encounter Miscellaneous Notes Addendum Note - Chanelle Johnston APRN CNM - 11/05/2019 1:00 PM CDT Addended by: CHANELLE JOHNSTON on: 11/05/2019 07:00 PM Modules accepted: Level of Service documented in this encounter Plan of Treatment Upcoming Encounters Date Type Specialty Care Team Description 04/28/2022 Office Visit Family Practice Anthony Doe PA-C [address] [place], [place] [phone] (Wo rk) 05/03/2022 Office Visit Dermatology Neil Kent M D [address] [place], [place] [address] (Wo rk) 05/05/2022 Office Visit Optometry Yeny David, OD [address] [facility] [address] [place], [place] [phone] (Wo rk) 05/11/2022 Virtual Visit Pharm D Diana Desir , [facility] [address] [place], [place] [address] (Wo rk) 05/14/2022 Office Visit Cardiology Livan Sharif MD [address] [facility], [facility] [address] [place], [place] [address] (Wo rk) 05/31/2022 Office Visit [facility] Valery Veronica PA-C [address] [place], [place] [address] (Wo rk) documented as of this encounter Procedures Procedure Name Priority Date/Time Associated Diagnosis Comme nts HEPATITIS B SURFACE Routine 11/05/2019 2:08 PM Screen for STD Results for this ANTIBODY CDT (sexually transmitted proced ure are in disease) the results section. HIV ANTIGEN Routine 11/05/2019 2:08 PM Screen for STD Results for this ANTIBODY COMBO CDT (sexually transmitted proc edure are in disease) the results section. HEPATITIS C Routine 11/05/2019 2:08 PM Screen for STD Results for this ANTIBODY CDT (sexually transmitted proced ure are in disease) the results section. HCL HCG, URINE, Routine 11/05/2019 Encounter for removal Res ults for this NURSE BACKOFFICE of intrauterine procedur e are in contraceptive device the res ults section. documented in this encounter Results Hepatitis C antibody (11/05/2019 2:08 PM CDT) [facility] Method Time Signature Hepatitis C Nonreactive NR^Nonrea 11/06/2019 [facility] Antibody ctive 9:42 AM CDT [facility] Comment: Assay performance characteristics have n ot been established for newborns, infants, and children Specimen Anatomical Collection Method Collection Time Receive d Time (Source) Location / / Volume Laterality Blood specimen 11/05/2019 2:08 PM 020 2:13 (specimen) CDT PM CDT [facility] - BLOOD ORDE SHARON Performing Organization Address City/[facility]/ZIP Code Phon e Number [address] Hepatitis B Surface Antibody (11/05/2019 2:08 PM CDT) athologist Signature Hepatitis B 0.01 <8.00 11/06/2019 [facility] Surface m[IU]/mL 9:42 AM CDT [facility] [place] Comment: Nonreactive, No antibody detect ed when the value is less than 8.00 m[IU]/mL. Specimen Anatomical Collection Method Collection Time Receive d Time (Source) Location / / Volume Laterality Blood specimen 11/05/2019 2:08 PM 020 2:13 (specimen) CDT PM CDT [facility] - BLOOD ORDSia HERRERA Performing Organization Address City/State/ZIP Code Phon e Number [address] HIV Antigen Antibody Combo (11/05/2019 2:08 PM CDT) [facility] Method Time Signature HIV Antigen Nonreactive NR^Nonrea 11/06/2019 [facility] Antibody ctive 9:42 AM CDT [facility] Comment: HIV-1 p24 Ag & HIV-1/HIV-2 Ab N ot Detected Specimen Anatomical Collection Method Collection Time Receive d Time (Source) Location / / Volume Laterality Blood specimen 11/05/2019 2:08 PM 020 2:13 (specimen) CDT PM CDT Chanelle Johnston ARLENE CN [facility] - BLOOD ORDE RABLES Performing Organization Address City/State/ZIP Code Phon e Number [id number] [place] [address] HCL HCG, URINE, NURSE BACKOFFICE (11/05/2019) P athologist Signature hCG, Qual Negative [facility] Specimen (Source) Anatomical Location Collection Method / Collectio n Time Received Time / Laterality Volume 11/05/2019 Chanelle [facility] Performing Organization Address [facility]/ZIP Code Phon e Number [facility] documented in this encounter Visit Diagnoses Diagnosis Encounter for removal of intrauterine co ntraceptive device - Primary Encounter for initial prescription of co ntraceptive pills General counseling for prescription of o ral contraceptives Screen for STD (sexually transmitted dis ease) Screening examination for venereal disea se documented in this encounter Additional Health Concerns Assessment Noted Time PHQ-9 Depression Total Score: 1 09/11/2019 1:42 PM CAMPUS DIRECTOR documented as of this encounter Care Teams Fire Supervisor Relationship Specialty Start Date End Date Rakesh Cid, PCP - General Physician Electric Motor Mechanic - 05/14/19 04/29/20 [facility] Rakesh Cid, Assigned PCP 05/06/19 [facility] [address] [place] [address] documented as of this encounter
--- OUTSIDE RECORDS SUMMARY | 2022-04-28 01:24 | XMS_ITS | Encounter Summary ---
:2000 Author Organization [place] Address [address] [place] [address] Care Team Providers Name Role Phone Rakesh Cid PA-C Unavailable [phone] Rakesh Cid PA-C Primary Care Provider [phone] Encounter Details Date Type Department Care Team Description 06/12/2019 Travel Social History Tobacco Use Types Packs/Day [...] How often do you attend congregation or spiritism services? Never 09/22/2021 Do you belong to [...] or slept in a longterm (including now)? Sex Assigned at Date Recorded Female 03/02/2021 5:45 PM CDT documented as of this encounter Plan of Treatment Upcoming Encounters Date Type Specialty Care Team Description 04/28/2022 Office Visit Family Practice Anthony Doe, PAUcheC [address] [place], [place] [phone] (Wo rk) 05/03/2022 Office Visit Dermatology Neil Kent M D [address] [place], [place] [address] (Wo rk) 05/05/2022 Office Visit Optometry Yeny David, OD [address] [facility] [address] [place], [place] [phone] (Wo rk) 05/11/2022 Virtual Visit Pharm D Diana Desir , [facility] [address] [place], [place] [address] (Wo rk) 05/14/2022 Office Visit Cardiology Livan Sharif MD [address] , [facility] [address] [place], [place] [address] (Wo rk) 05/31/2022 Office Visit Family Practice Valery Veronica PAUcheC [address] [place], [place] [address] (Wo rk) documented as of this encounter Visit Diagnoses Not on filedocumented in this encounter Additional Health Concerns Assessment Noted Time PHQ-9 Depression Total Score: 4 05/02/2019 9:51 AM CDT documented as of this encounter Care Teams Hanger Off Relationship Specialty Start Date End Date Rakesh Cid, PCP - General Physician Candy Separator Enrobing - 05/14/19 04/29/20 [facility] Rakesh Cid, Assigned PCP 05/06/19 [place] [address] [place] [address] documented as of this encounter
--- OUTSIDE RECORDS SUMMARY | 2022-04-28 01:24 | XMS_ITS | Encounter Summary ---
:2000 Author Organization [place] Address [address] [place] [address]. [place] [address] Care Team Providers Name Role Phone Rakesh Cid PA-C Unavailable [phone] Rakesh Cid PA-C Primary Care Provider [phone] Reason for Visit Reason Comments Urgent Care URI Seen here on Tuesday for cou gh and congestion, and sx are getting worse with cough attacks, mucous i n throat, no fevers, chest discomfort Encounter Details Date Type Department Care Team Description 06/16/2019 Office Visit [facility] Urgent [place]Jose Francisco, Cough (Primary Dx) Care [facility] [address] [address] [place] [address] [place], [place] [phone] Social History Tobacco Use Types Packs/Day Years [...] How often do you attend restoration or rastafarian services? Never 09/22/2021 Do you [...] Sign Reading Time Taken Comments Blood Pressure 100/74 06/16/2019 3:04 PM FISH HATCHERY ASSISTANT Pulse 68 06/16/2019 3:04 PM FISH HATCHERY ASSISTANT Temperature 37 ??C (98.6 ??F) 06/16/2019 3:04 PM FISH HATCHERY ASSISTANT Respiratory Rate 16 06/16/2019 3:04 PM FISH HATCHERY ASSISTANT Oxygen Saturation 99% 06/16/2019 3:04 PM FISH HATCHERY ASSISTANT Inhaled Oxygen Concentration - - Weight 76.2 kg (168 lb) 06/16/2019 3:04 PM FISH HATCHERY ASSISTANT Height - - Body Mass Index 27.12 05/02/2019 9:03 AM CDT documented in this encounter Progress Notes Jose Francisco Holland MD - 06/16/2019 2:50 PM CST SUBJECTIVE: Kim Johnson is a 19 year old female who complains of cough for 14 days. She denies a history of sob with her cough. She denies a history of asthma. Patient denies smoke cigarettes. OBJECTIVE: Vitals as noted by Nurse/MA above. Appearance: in no apparent distress. ENT- nasal mucosa pale and congested. Chest - no tachypnea, retractions or cyanosis and S1, S2 normal, no murmur, no gallop, rate regular. ASSESSMENT: Pneumonia PLAN: Symptomatic therapy suggested: push fluids and rest. Call or return to clinic prn if these symptoms worsen or fail to improve as anticipated. HATCHERY ASSISTANT documented in this encounter Plan of Treatment Upcoming Encounters Date Type Specialty Care Team Description 04/28/2022 Office Visit Family Practice Anthony Doe PA-C [address] [place], [place] [phone] (Wo rk) 05/03/2022 Office Visit Dermatology Neil Kent M D [address] [place] [address] (Wo rk) 05/05/2022 Office Visit Optometry Yeny David, OD [address] [facility] [address] [place] [phone] (Wo rk) 05/11/2022 Virtual Visit Pharm D Diana Desir , [facility] [address] [place], [place] [address] (Wo rk) 05/14/2022 Office Visit Cardiology Livan Sharif MD [address] [facility] [address] [place], [place] [address] (Wo rk) 05/31/2022 Office Visit [facility][1] Valery Veronica PA-C [address] [place], [place] [address] (Wo rk) documented as of this encounter Visit Diagnoses Diagnosis Cough - Primary documented in this encounter Additional Health Concerns Assessment Noted Time PHQ-9 Depression Total Score: 4 05/02/2019 9:51 AM CDT documented as of this encounter Care Teams Relay Dispatcher Relationship Specialty Start Date End Date Rakesh Cid, PCP - General Physician Councilman - 05/14/19 04/29/20 [facility] Rakesh Cid, Assigned PCP 05/06/19 [place] [address] [place] [address] documented as of this encounter
--- OUTSIDE RECORDS SUMMARY | 2022-04-28 01:24 | XMS_ITS | Encounter Summary ---
:2000 Author Organization [place] Address [address] [place] [address] Care Team Providers Name Role Phone Rakesh Cid PA-C Unavailable [phone] Rakesh Cid PA-C Primary Care Provider [phone] Encounter Details Date Type Department Care Team Description 05/17/2019 Travel Social History Tobacco Use Types Packs/Day [...] How often do you attend advent or baptist services? Never 09/22/2021 Do you [...] or slept in a retirement (including now)? Sex Assigned at Date Recorded Female 03/02/2021 5:45 PM CDT documented as of this encounter Plan of Treatment Upcoming Encounters Date Type Specialty Care Team Description 04/28/2022 Office Visit Family Practice Anthony Doe, PAUcheC [address] [place], [place] [phone] (Wo rk) 05/03/2022 Office Visit Dermatology Neil Kent M D [address] [place], [place] [address] (Wo rk) 05/05/2022 Office Visit Optometry Yeny David, OD [address] [facility] [address] [place], [place] [phone] (Wo rk) 05/11/2022 Virtual Visit Pharm D Diana Desir , [facility] [address] [place], [place] [address] (Wo rk) 05/14/2022 Office Visit Cardiology Livan Sharif MD [address] , [facility] [address] [place], [place] [address] (Wo rk) 05/31/2022 Office Visit Family Practice Valery Veronica PAUcheC [address] [place], [place] [address] (Wo rk) documented as of this encounter Visit Diagnoses Not on filedocumented in this encounter Additional Health Concerns Assessment Noted Time PHQ-9 Depression Total Score: 4 05/02/2019 9:51 AM CDT documented as of this encounter Care Teams Director Of Compliance Relationship Specialty Start Date End Date Rakesh Cid, PCP - General Physician Infant Teacher - 05/14/19 04/29/20 [facility] Rakesh Cid, Assigned PCP 05/06/19 [place] [address] [place] [address] documented as of this encounter
--- OUTSIDE RECORDS SUMMARY | 2022-04-28 01:24 | XMS_ITS | Encounter Summary ---
:2000 Author Organization [facility] Address [address] [place] [address]. [place] [address] Care Team Providers Name Role Phone Rakesh Cid PA-C Unavailable [phone] Rakesh Cid PA-C Primary Care Provider [phone] Encounter Details Date Type Department Care Team Description 10/30/2019 Telephone [facility] Queta Beltre PA-C [address] [facility], [address] [address] [place] [address] [phone] Social History Tobacco Use Types Packs/Day Years [...] How often do you attend sabianism or methodist services? Never 09/22/2021 Do you [...] this encounter Miscellaneous Notes Telephone Encounter - Clarice Mattson RN - 10/30/2019 3:53 PM CDT Spoke with patient and informed her that she had STD testing done in . She states she had sex with a new partner and found out that one of the people she had sex with had sex with another person who had herpes and now she is freaking out. Advised she needs to schedule a video or telephone appointment with a provider to discuss what testing would be appropriate and offered to schedule but she is currently driving and states she will callback. Lab only appointment cancelled. She also states that the OBGYN in [place] wanted her to get tested. Advised she can contact them to see if they will put in orders but our providers will not without an appointment and reiterated that lab only was cancelled for tomorrow. Clarice Mattson RN, BSN Telephone Encounter - Edwin Nguyen MD - 10/30/2019 3:48 PM CDT I don't see anything in her note from 08/16/2019 about repeat STD screen at time of IUD string check, and provider didn't future order those labs. There is no current indication to repeat Gonorrhea or Chlamydia screen. If she has symptoms, she needs to be evaluated. Edwin Nguyen MD Telephone Encounter - Clarice Mattson RN - 10/30/2019 3:35 PM CDT Please advise on STD orders. Per 08/16/2019 pt was advised to get an STD screening but it looks like it was done at 08/16/19 so unsure if she needs these redone Clarice Mattson RN, BSN Telephone Encounter - Tejada - 10/30/2019 2:54 PM CDT Reason for Call: Other call back Detailed comments: Patient says that [facility] wanted her to get an STD check around same time of when she gets her ultrasound IUD check. She has an appointment tomorrow morning for labs but I do not see any standing orders. Are you able to put in orders for patient to get this done tomorrow morning? Phone Number Patient can be reached at: Home number on file [phone] (home) Best Time: Anytime Can we leave a detailed message on this number? YES Call taken on 10/30/2019 at 2:55 PM by Tejada documented in this encounter Plan of Treatment Upcoming Encounters Date Type Specialty Care Team Description 04/28/2022 Office Visit Family Practice Anthony Doe, ROVERTO [address] [place] [address] (Jefferson carlson) 05/03/2022 Office Visit Dermatology Neil Kent M D [address] [place] [phone] (Jefferson carlson) 05/05/2022 Office Visit Optometry Frankie Nataliemohamud Garcia, OD [address] [facility] [place] [address] (Wo rk) 05/11/2022 Virtual Visit Pharm D Diana Desir , [facility] [address] [place], [place] [address] (Wo rk) 05/14/2022 Office Visit Cardiology Livan Sharif MD [address], [address] [place], [place] [address] (Wo rk) 05/31/2022 Office Visit Family Practice Valery Veronica , PA-C [address]09 [place], [place] [address] (Wo rk) documented as of this encounter Visit Diagnoses Not on filedocumented in this encounter Additional Health Concerns Assessment Noted Time PHQ-9 Depression Total Score: 1 09/11/2019 1:42 PM MANAGER RESORT documented as of this encounter Care Teams Painting Machine Operator Relationship Specialty Start Date End Date Rakesh Cid, PCP - General Physician Pocket Flap Creasing Machine Operator - 05/14/19 04/29/20 PABaldo Medical Rakesh Cid, Assigned PCP 05/06/19 PA-C [address] [place] [address] documented as of this encounter
--- OUTSIDE RECORDS SUMMARY | 2022-04-28 01:24 | XMS_ITS | Encounter Summary ---
:2000 Author Organization [facility] Address [address] [place] [address]. [place] [address] Care Team Providers Name Role Phone Rakesh Cid PA-C Unavailable [phone] Rakesh Cid PA-C Primary Care Provider [phone] Reason for Visit Reason Comments Lab Only Encounter Details Date Type Department Care Team Description 10/30/[address] [facility] Lakeisha jones, Lab Only [facility] Queta Benitez PA-C [address] [facility] [address] [place] [phone] [place] [address] (Wo rk) Social History Tobacco Use Types [...] How often do you attend scientologist or mandaen services? Never 09/22/2021 Do you [...] documented as of this encounter Progress Notes Hiram Irvin - 10/30/2019 3:00 PM CDT Patient has a lab only appointment on 10.31.19 at 0900 for STD Screening, but no order has been placed. Please review pt chart and if needed order test/s as future. Thanks much, [facility] documented in this encounter Plan of Treatment Upcoming Encounters Date Type Specialty Care Team Description 04/28/2022 Office Visit Family Practice Anthony Doe PA-C [address] [place], [place] [phone] (Wo rk) 05/03/2022 Office Visit Dermatology Neil Kent M D [address] [place], [place] [address]265 (Wo rk) 05/05/2022 Office Visit Optometry Yeny David, OD [address] [facility] [place] [address] (Wo rk) 05/11/2022 Virtual Visit Pharm D Diana Desir , [facility] [address] [place] [address] (Wo rk) 05/14/2022 Office Visit Cardiology Livan Sharif MD [address], [address] [place], [place] [address] (Wo rk) 05/31/2022 Office Visit Family Practice Valery Veronica PAUcheC 909 [place], [place] [phone] (Wo rk) documented as of this encounter Visit Diagnoses Not on filedocumented in this encounter Additional Health Concerns Assessment Noted Time PHQ-9 Depression Total Score: 1 09/11/2019 1:42 PM BILL CUTTER documented as of this encounter Care Teams Clinical Abstractor Relationship Specialty Start Date End Date Rakesh Cid, PCP - General Physician City Planner - 05/14/19 04/29/20 PABaldo Medical Rakesh Cid, Assigned PCP 05/06/19 PABaldo [address] [address] [place] [address] documented as of this encounter
--- OUTSIDE RECORDS SUMMARY | 2022-04-28 01:24 | XMS_ITS | Encounter Summary ---
:2000 Author Organization [facility] Address [address] [place] [address] Care Team Providers Name Role Phone Rakesh Cid PA-C Unavailable [phone] Rakesh Cid PA-C Primary Care Provider Encounter Details Date Type Department Care Team Description 06/16/2019 Travel Social History Tobacco Use Types Packs/Day [...] How often do you attend adventist or taoism services? Never 09/22/2021 Do you [...] Office Visit Family Practice Anthony Doe, PAUcheC [address] [place], [place] [phone] (Wo rk) 05/03/2022 Office Visit Dermatology Neil Kent M D [address] [place], [place] [address] (Wo rk) 05/05/2022 Office Visit Optometry Yeny David, OD [address] [facility] [address] [place] [phone] (Wo rk) 05/11/2022 Virtual Visit Pharm D Diana Desir , [facility] [address] [place], [place] [address] (Wo rk) 05/14/2022 Office Visit Cardiology Livan Sharif MD [address] , [facility] [address] [place], [place] [address] (Wo rk) 05/31/2022 Office Visit Family Practice Valery Veronica PAUcheC 909 [place], [place] [address] (Wo rk) documented as of this encounter Visit Diagnoses Not on filedocumented in this encounter Additional Health Concerns Assessment Noted Time PHQ-9 Depression Total Score: 4 05/02/2019 9:51 AM CDT documented as of this encounter Care Teams Coiler Operator Relationship Specialty Start Date End Date Rakesh Cid, PCP - General Physician Assistant Women'S Tennis Coach - 05/14/19 04/29/20 [facility] Medical Rakesh Cid, Assigned PCP 05/06/19 [place] [place] [address] documented as of this encounter
--- OUTSIDE RECORDS SUMMARY | 2022-04-28 01:24 | XMS_ITS | Encounter Summary ---
:2000 Author Organization [facility] Address [address] [place] [address]. [place] [address] Care Team Providers Name Role Phone Rakesh Cid PA-C Unavailable [phone] Rakesh Cid PA-C Primary Care Provider [phone] Reason for Visit Diagnostic Imaging Ultrasound (Routine) - Closed Specialty Diagnoses / Procedures Referred By Contact Refer red To Contact Diagnoses Pelvic pain in female Complication of intrauterine device (IUD), unspecified complication, initial encounter (H) Queta Beltre Procedures US Pelvic Complete w Transvaginal ROVERTO Benitez [address] [place] [address] Referral ID Status Reason Start Date Expiration Date Visits Requ ested Visits Authorized [id number] Closed 08/16/2019 08/15/2020 1 1 Encounter Details Date Type Department Care Team Description 11/02/2019 Ancillary Procedure [facility] Patt Pelvic pain in female; Clinic Queta Hadley, Complication of intrauterine device (IUD), unspecified complication, initial encounter (H) [address] [facility] Jose Moreno [address] [place] [id number] Social History Tobacco Use Types Packs/Day Years [...] How often do you attend sikh or mormon services? Never 09/22/2021 Do you [...] Office Visit Family Practice Anthony Doe PA-C [address] [place] [address] (Wo rk) 05/03/2022 Office Visit Dermatology Neil Kent M D [address] [place] [address] (Wo rk) 05/05/2022 Office Visit Optometry Yeny David, OD [address] [facility] [place] [address] (Wo rk) 05/11/2022 Virtual Visit Pharm D Diana Desir , [facility] [address] [place], [place] [address] (Wo rk) 05/14/2022 Office Visit Cardiology Livan Sharif MD [address], [address] [place], [place] [address] (Wo rk) 05/31/2022 Office Visit Family Practice Valery Veronica , PABaldo [address]09 [place] [address] (Wo rk) documented as of this encounter Procedures Procedure Name Priority Date/Time Associated Diagnosis Comme nts US PELVIC Routine 11/02/2019 3:02 Pelvic pain in Results fo r this TRANSABDOMINAL AND PM CDT female procedure are in TRANSVAGINAL Complication of the results intrauterine device section. (IUD), unspecified complication, initial encounter (H) documented in this encounter Results (ABNORMAL) US Pelvic Complete w Transvaginal (11/02/2019 3:02 PM CDT) Anatomical Region Laterality Modality Abdomen/Pelvis Ultrasound Specimen (Source) Anatomical Location Collection Method / Collectio n Time Received Time / Laterality Volume Narrative 11/03/2019 8:35 PM CDT ULTRASOUND - PELVIC SALES AND MARKETING PROFESSIONAL [facility] Obstetrics & Gynecology [address] [place] [address] ?? Referring MD: Queta Beltre Primary Clinic: [facility] ? CLINICAL INFORMATION ?? Indications for ultrasound: [...] interim. Bita Foster MD Obstetrics and Gynecology [facility] Queta Beltre PA-C IM US ORDERABLES documented in this encounter Visit Diagnoses Diagnosis Pelvic pain in female Unspecified symptom associated with fema le genital organs Complication of intrauterine device (IUD ), unspecified complication, initial encounter (H) documented in this encounter Additional Health Concerns Assessment Noted Time PHQ-9 Depression Total Score: 1 09/11/2019 1:42 PM DEMOLITION HAMMER OPERATOR documented as of this encounter Care Teams Campaign Assistant Relationship Specialty Start Date End Date Rakesh Cid, PCP - General Physician Maint Mechanic - 05/14/19 04/29/20 [facility] Medical Rakesh Cid, Assigned PCP 05/06/19 [address] [place] [address] documented as of this encounter
--- OUTSIDE RECORDS SUMMARY | 2022-04-28 01:24 | XMS_ITS | Encounter Summary ---
:2000 Author Organization [facility] Address [address] [place] [address]. [place] [address] Care Team Providers Name Role Phone Rakesh Cid PA-C Unavailable [phone] Rakesh Cid PA-C Primary Care Provider Reason for Visit Diagnostic Imaging XR (Routine) - Closed Specialty Diagnoses / Procedures Referred By Contact Refer red To Contact Diagnoses Cervicalgia Rakesh Cid, Procedures XR Cervical Spine 2/3 Views [place]O [address] [place] [address] Referral ID Status Reason Start Date Expiration Date Visits Requ ested Visits Authorized [id number] Closed 05/17/2019 05/16/2020 1 1 Encounter Details Date Type Department Care Team Description 05/17/2019 Ancillary Procedure [facility] Rakesh Cid Cervicalgia Clinic Dat Landers PA-C [address] [facility], [address] [facility] [address] [place] [address] [place], [place] [phone] (Wo rk) [address] [phone] Social History Tobacco Use Types Packs/Day Years [...] How often do you attend adventism or episcopalian services? Never 09/22/2021 Do you [...] or slept in a prison (including now)? Sex Assigned at Date Recorded Female 03/02/2021 5:45 PM CDT documented as of this encounter Plan of Treatment Upcoming Encounters Date Type Specialty Care Team Description 04/28/2022 Office Visit Family Practice Anthony Doe, PABaldo [address] [place], [place] [phone] (Wo rk) 05/03/2022 Office Visit Dermatology Neil Kent M D [address] [place], [place] [address] (Wo rk) 05/05/2022 Office Visit Optometry Yeny David, OD [address] [facility] [address] [place] [phone] (Wo aldo) 05/11/2022 Virtual Visit Pharm D Diana Desir , [facility] [address] [place] [address] (Wo rk) 05/14/2022 Office Visit Cardiology Livan Sharif MD [address] [place] [address] (Wo rk) 05/31/2022 Office Visit Family Practice Valery Veronica PA-C 909 [place] [address] (Wo rk) documented as of this encounter Procedures Procedure Name Priority Date/Time Associated Diagnosis Comme nts XR CERVICAL SPINE Routine 05/17/2019 2:03 PM Cervicalgia Resu lts for this 2/3 VIEWS READING EFFICIENCY COURSE DIRECTOR procedure are i n the results section. documented in this encounter Results XR Cervical Spine 2/3 Views (05/17/2019 2:03 PM READING EFFICIENCY COURSE DIRECTOR) Anatomical Region Laterality Modality Spine Computed Radiography Specimen (Source) Anatomical Location Collection Method / Collectio n Time Received Time / Laterality Volume Impressions 05/17/2019 2:22 PM READING EFFICIENCY COURSE DIRECTOR IMPRESSION: Alignment is significant for slight reversal of the normal cervical lordosis. No fractures are iden tified. No high-grade degenerative disc disease or facet arthr opathy is identified. Paraspinal soft tissues are unremarkable . YAMILKA DIAS MD Narrative 05/17/2019 2:22 PM READING EFFICIENCY COURSE DIRECTOR CERVICAL SPINE TWO TO THREE VIEWS ?? [...] in this encounter Visit Diagnoses Diagnosis Cervicalgia documented in this encounter Additional Health Concerns Assessment Noted Time PHQ-9 Depression Total Score: 4 05/02/2019 9:51 AM CDT documented as of this encounter Care Teams Form Worker Relationship Specialty Start Date End Date Rakesh Cid, PCP - General Physician Enamel Burner - 05/14/19 04/29/20 [facility] Medical Rakesh Cid, Assigned PCP 05/06/19 [facility] [address] [facility] [place] [address] documented as of this encounter
--- OUTSIDE RECORDS SUMMARY | 2022-04-28 01:24 | XMS_ITS | Encounter Summary ---
:2000 Author Organization [place] Address [address] [place] [address]. [place] [address] Care Team Providers Name Role Phone Rakesh Cid PA-C Unavailable [phone] Rakesh Cid PA-C Primary Care Provider [phone] Reason for Referral Diagnostic Imaging XR (Routine) - Closed Specialty Diagnoses / Procedures Referred By Contact Refer red To Contact Diagnoses Contusion of right foot including toes, initial encounter Jonah Barr MD Procedures XR Foot Right G/E 3 Views [address] [place], [place] [address] Referral ID Status Reason Start Date Expiration Date Visits Requ ested Visits Authorized [id number] Closed 09/11/2019 09/10/2020 1 1 GARAGE MECHANIC Reason for Visit Reason Comments Musculoskeletal Problem right foot pain Encounter Details Date Type Department Care Team Description 09/11/2019 Office Visit [facility] Jonah Barr Contus ion of right Clinic Kalee Oliver MD foot including toes, [address] [facility] [id number] [place] [address] initial encounter [place], [place] ([place] Dx) [address] [phone] Social History Tobacco Use Types Packs/Day Years Used Date Smoking Tobacco: Heavy Smoker Cigarettes 1 Other Smokeless Tobacco: Never Tobacco Cessation: Ready to Quit: Yes; Romana aguirre Given: Yes Comments: Vaping Alcohol Use Standard Drinks/Week Comments [...] How often do you attend evangelical or muslim services? Never 09/22/2021 Do you [...] for the very basics like Not jessica riveray hard 09/22/2021 food, housing, medical care, and [...] Sign Reading Time Taken Comments Blood Pressure 112/76 09/11/2019 1:38 PM AUTO GARAGE MECHANIC Pulse 70 09/11/2019 1:38 PM AUTO GARAGE MECHANIC Temperature 36.8 ??C (98.2 ??F) 09/11/2019 1:38 PM AUTO GARAGE MECHANIC Respiratory Rate 14 09/11/2019 1:38 PM AUTO GARAGE MECHANIC Oxygen Saturation - - Inhaled Oxygen Concentration - - Weight 78.2 kg (172 lb 8 oz) 09/11/2019 1:38 PM AUTO GARAGE MECHANIC Height 166.4 cm (5' 5.5) 09/11/2019 1:38 PM AUTO GARAGE MECHANIC Body Mass Index 28.27 09/11/2019 1:38 PM AUTO GARAGE MECHANIC documented in this encounter Progress Notes Jonah Barr MD - 09/11/2019 1:20 PM CST Subjective Kim Johnson is a 19 year old female who presents to clinic today for the following health issues: Musculoskeletal Problem This is a new (4-5 right toes, metatarsals) problem. The current episode started yesterday. The problem occurs 2 to 4 times per day. The problem has been unchanged. Associated symptoms include joint swelling and numbness. Pertinent negatives include no weakness. Exacerbated by: Hit a door frame with foot. She has tried ice for the symptoms. The treatment provided mild relief. Past Medical History: Diagnosis Date ??? Anxiety ??? Chronic kidney disease ??? Depressive disorder ??? Gastroesophageal reflux disease ??? Seizure (H) 05/02/2019 Past Surgical History: Procedure Laterality Date ??? GENITOURINARY SURGERY Family History Problem Relation Age of Onset ??? Heart Disease Maternal Grandfather ??? Brain Tumor Sister Social History Tobacco Use ??? Smoking status: Heavy Tobacco Smoker Packs/day: 1.00 Types: Other ??? Smokeless tobacco: Never Used ??? Tobacco comment: Vaping Substance Use Topics ??? Alcohol use: Not Currently Review of Systems Musculoskeletal: Positive for joint swelling. Neurological: Positive for numbness. Negative for weakness. ROS COMP: Constitutional, HEENT, cardiovascular, pulmonary, gi and gu systems are negative, except as otherwise noted. Objective BP 112/76 (BP Location: Right arm, Patient Position: Sitting, Cuff Size: Adult Regular) Pulse 70 Temp 98.2 ??F (36.8 ??C) (Oral) Resp 14 Ht 1.664 m (5' 5.5) Wt 78.2 kg (172 lb 8 oz) BMI 28.27 kg/m?? Body mass index is 28.27 kg/m??. Physical Exam GENERAL: healthy, alert and [...] no peripheral edemaand peripheral pulses strong MS: toe swelling and eccymosis, tender mid dorsal forefoot SKIN: NEURO: Normal strength and tone, mentation intact and speech normal PSYCH: mentation appears normal, affect normal/bright Assessment & Plan 1. Contusion of right foot including toes, initial encounter - XR Foot Right G/E 3 Views Sprained , eccmosis foot, bones appear intact Return if symptoms worsen or fail to improve. Jonah Barr MD [facility] GARAGE MECHANIC documented in this encounter Plan of Treatment Upcoming Encounters Date Type Specialty Care Team Description 04/28/2022 Office Visit Family [facility] Anthony Doe, PABaldo [address] [place], [place] [phone] (Wo rk) 05/03/2022 Office Visit Dermatology Neil Kent M D 500 [place] [address] (Wo rk) 05/05/2022 Office Visit Optometry Yeny David, OD [address] [facility] [address] [place], [place] [phone] (Wo rk) 05/11/2022 Virtual Visit Pharm D Diana Desir , [facility] [address] [place], [place] [address] (Wo rk) 05/14/2022 Office Visit Cardiology Livan Sharif MD [address] , [facility] [address] [place], [place] [address] (Wo rk) 05/31/2022 Office Visit Family [facility] Valery Veronica , PABaldo [address] [place], [place] [phone] (Wo rk) documented as of this encounter Procedures Procedure Name Priority Date/Time Associated Diagnosis Comme nts XR FOOT RIGHT G/E 3 Routine 09/11/2019 2:14 PM Contusion of ri ght Results for this VIEWS AUTO GARAGE MECHANIC foot including toes, procedu re are in initial encounter the result s section. documented in this encounter Results XR Foot Right G/E 3 Views (09/11/2019 2:14 PM AUTO GARAGE MECHANIC) Anatomical Region Laterality Modality Foot, Ankle Right Computed Radiography Specimen (Source) Anatomical Location Collection Method / Collectio n Time Received Time / Laterality Volume Impressions 09/11/2019 2:27 PM AUTO GARAGE MECHANIC IMPRESSION: Negative exam. MARCELO FANG MD Narrative 09/11/2019 2:27 PM AUTO GARAGE MECHANIC XR FOOT RT G/E 3 VW 09/11/2019 [...] documented in this encounter Visit Diagnoses Diagnosis Contusion of right foot including toes, initial encounter - Primary documented in this encounter Additional Health Concerns Assessment Noted Time PHQ-9 Depression Total Score: 1 09/11/2019 1:42 PM AUTO GARAGE MECHANIC documented as of this encounter Care Teams Bath Solution Maker Relationship Specialty Start Date End Date Rakesh Cid, PCP - General Physician Collections Clerk - 05/14/19 04/29/20 PA-C Medical Rakesh Cid, Assigned PCP 05/06/19 PA-C [address] [address] [address] documented as of this encounter
--- OUTSIDE RECORDS SUMMARY | 2022-04-28 01:25 | XMS_ITS | Encounter Summary ---
:2000 Author Organization [facility] Address [address] [place] [address] Care Team Providers Name Role Phone Unavailable Primary Care Provider Unavailable Encounter Details Date Type Department Care Team Description 02/04/2008 Historic Results INTERFACED REPORT Charlie Doss MD [facility] [address] [place] [phone] (Wo rk) Social History Tobacco Use Types Packs/Day Years Used Date Smoking Tobacco: Never Assessed Alcohol Habits Answer Date Recorded How often [...] often do you attend latter day or buddhism services? Never 09/22/2021 Do you belong to [...] Office Visit Family Practice Anthony Doe, PAUcheC [address] [place], [place] [phone] (Wo rk) 05/03/2022 Office Visit Dermatology Neil Kent M D [address] [place] [address] (Wo rk) 05/05/2022 Office Visit Optometry Yeny David, OD [address] [facility] [address] [place], [place] [phone] (Wo rk) 05/11/2022 Virtual Visit Pharm D Diana Desir , [facility] [address] [place], [place] [phone] (Wo rk) 05/14/2022 Office Visit Cardiology Livan Sharif MD [address] [facility] [address] [place], [place] [address] (Wo rk) 05/31/2022 Office Visit Family Practice Valery Veronica PA-C [address]09 [place], [place] [address] (Wo rk) documented as of this encounter Procedures Procedure Name Priority Date/Time Associated Diagnosis Comme nts CRP INFLAMMATION Routine 02/04/2008 10:06 AM Resu lts for this CDT procedure are i n the results section. documented in this encounter Results (ABNORMAL) CRP inflammation (02/04/2008 10:06 AM CDT) [facility] Method Time Signature CRP Inflammation 42.1 (H) 0.0 - 8.0 MISYS mg/L Specimen (Source) Anatomical Collection Method Collection Time Re ceived Time Location / / Volume Laterality 02/04/2008 10:06 02/04/2008 AM CDT aYnely Doss MD LAB - BLOOD ORDERABLES Performing Organization Address City/State/ZIP Code Phon e Number MISYS documented in this encounter Visit Diagnoses Not on filedocumented in this encounter
--- OUTSIDE RECORDS SUMMARY | 2022-04-28 01:25 | XMS_ITS | Encounter Summary ---
:2000 Author Organization [place] Address [address] [place] [address] Care Team Providers Name Role Phone Unavailable Primary Care Provider Unavailable Encounter Details Date Type Department Care Team Description 02/02/2008 Historic Results INTERFACED REPORT Poncho [place] [address] [place], [place] [address] (Wo rk) Social History Tobacco Use Types [...] How often do you attend mandaen or cheondoism services? Never 09/22/2021 Do you [...] 04/28/2022 Office Visit Family Practice Anthoyn Doe PABaldo [address] [place], [place] [phone] (Wo rk) 05/03/2022 Office Visit Dermatology Neil Kent M D [address] [place], [place] [phone] (Wo rk) 05/05/2022 Office Visit Optometry Yeny David, OD [address] [facility] [address] [place], [place] [phone] (Wo rk) 05/11/2022 Virtual Visit Pharm D Diana Desir , [facility] [address] [place], [place] [phone] (Wo rk) 05/14/2022 Office Visit Cardiology Livan Sharif MD [address] [facility] [place] [facility] [address] [place], [place] [address] (Wo rk) 05/31/2022 Office Visit Family Practice Valery Veronica PA-C [address] [place] [address] (Wo rk) documented as of this encounter Procedures Procedure Name Priority Date/Time Associated Comments Diagnosis POTASSIUM Timed 02/02/2008 8:45 AM Results f or this CDT procedure are i n the results section. CRP INFLAMMATION Routine 02/02/2008 8:45 AM Resul ts for this CDT procedure are i n the results section. CBC WITH PLATELETS & Routine 02/02/2008 7:54 AM R esults for this DIFFERENTIAL CDT procedure are i n the results section. CRP INFLAMMATION Routine 02/02/2008 7:54 AM Resul ts for this CDT procedure are i n the results section. BASIC METABOLIC PANEL Routine 02/02/2008 7:54 AM Results for this CDT procedure are i n the results section. documented in this encounter Results (ABNORMAL) CRP inflammation (02/02/2008 8:45 AM CDT) [facility] gist Method Time Signature CRP Inflammation 167.3 (H) 0.0 - 8.0 MISYS mg/L Comment: Specimen run with a dilution Specimen Anatomical Collection Method Collection Time Receive d Time (Source) Location / / Volume Laterality 02/02/2008 8:45 AM 8 8:39 CDT AM CDT Yanely Doss MD LAB - BLOOD ORDERABLES Performing Organization Address [facility] Phon e Number MISYS (ABNORMAL) Potassium (02/02/2008 8:45 AM CDT) P athologist Signature Potassium 5.4 (H) 3.4 - 5.3 MISYS mmol/L Comment: Specimen slightly hemolyzed, po tassium may be falsely elevated Specimen Anatomical Collection Method Collection Time Receive d Time (Source) Location / / Volume Laterality 02/02/2008 8:45 AM 8 9:50 CDT AM CDT Leidy Cortes MD LAB - BLOOD ORDERABLES Performing Organization Address [facility] Phon e Number MISYS CRP inflammation (02/02/2008 7:54 AM CDT) [facility] Method Time Signature CRP Inflammation Quantity not 0.0 - 8.0 MISYS sufficient mg/L Comment: Charge credited Specimen (Source) Anatomical Collection Method Collection Time Re ceived Time Location / / Volume Laterality 02/02/2008 7:54 AM 8 CDT Leidy Cortes MD LAB - BLOOD ORDERABLES Performing Organization Address [facility] Phon e Number MISYS (ABNORMAL) Basic metabolic panel (02/02/2008 7:54 AM CDT) P athologist Signature Sodium 141 133 - 143 MISYS mmol/L Potassium 6.2 (HH) 3.4 - 5.3 MISYS mmol/L Comment: Specimen slightly hemolyzed, potassium m ay be falsely elevated Critical Value called to and read back by FRANCISCO (PEDS) ON 02.02.08 [id number] BY EK Chloride 112 (H) 96 - 110 mmol/L MISYS Carbon Dioxide 18 (L) 20 - 32 mmol/L MISYS Glucose 93 60 - 99 mg/dL MISYS Urea Nitrogen 10 5 - 24 mg/dL MISYS Creatinine 0.36 0.15 - 0.53 mg/dL MISYS Comment: New IDMS-traceable calibration beginning 11/09/07 GFR Estimate GFR not calculated, patient <16 mL/min/1.7m2 MISYS years old. GFR Estimate If Black GFR not calculated, patient <16 mL/min/1.7m2 MISYS years old. Calcium 9.0 8.7 - 10.8 mg/dL MISYS Anion Gap 12 6 - 17 mmol/L MISYS Specimen (Source) Anatomical Collection Method Collection Time Re ceived Time Location / / Volume Laterality 02/02/2008 7:54 AM 8 CDT Leidy Cortes MD LAB - BLOOD ORDERABLES Performing Organization Address City/State/ZIP Code Phon e Number MISYS (ABNORMAL) CBC with platelets differential (02/02/2008 7:54 AM CDT) [facility] gist Method Time Signature MCV 73 70 - 100 MISYS fl MCH 23.8 (L) 26.5 - MISYS 33.0 pg MCHC 32.7 31.5 - MISYS 36.5 g/dL RDW 13.4 10.0 - MISYS 15.0 % WBC 8.2 5.0 - MISYS 14.5 10e9/L RBC Count 4.45 3.7 - 5.3 MISYS 10e12/L Hemoglobin 10.6 10.5 - MISYS 14.0 g/dL Hematocrit 32.4 31.5 - MISYS 43.0 % % Neutrophils 57 (H) 32 - 54 % MISYS % Lymphocytes 26 (L) 27 - 57 % MISYS % Monocytes 16 (H) 0 - 10 % MISYS % Eosinophils 1 0 - 6 % MISYS % Basophils 0 0 - 1 % MISYS Platelet Count 155 150 - 450 MISYS 10e9/L Absolute 4.7 1.3 - 8.1 MISYS Neutrophil 10e9/L Absolute 2.1 1.1 - 8.6 MISYS Lymphocytes 10e9/L Absolute 1.3 (H) 0.0 - 1.1 MISYS Monocytes 10e9/L Absolute 0.1 0.0 - 0.7 MISYS Eosinophils 10e9/L Absolute 0.0 0.0 - 0.2 MISYS Basophils 10e9/L Diff Method Automated MISYS Method Specimen (Source) Anatomical Collection Method Collection Time Re ceived Time Location / / Volume Laterality 02/02/2008 7:54 AM 8 CDT Leidy Cortes MD LAB - BLOOD ORDERABLES Performing Organization Address City/State/ZIP Code Phon e Number MISYS documented in this encounter Visit Diagnoses Not on filedocumented in this encounter
--- OUTSIDE RECORDS SUMMARY | 2022-04-28 01:25 | XMS_ITS | Encounter Summary ---
:2000 Author Organization [place] Address [address] [place] [address] Care Team Providers Name Role Phone Unavailable Primary Care Provider Unavailable Encounter Details Date Type Department Care Team Description 05/31/2007 Results Only [facility] Yanely Doss, Hospital Results [facility] [address] [place] [address] (Wo rk) Social History Tobacco [...] How often do you attend jain or orthodox services? Never 09/22/2021 Do you [...] Office Visit Family Practice Anthony Doe, PAUcheC [address] [place], [place] [phone] (Wo rk) 05/03/2022 Office Visit Dermatology Neil Kent M D [address] [place], [place] [address] (Wo rk) 05/05/2022 Office Visit Optometry Yeny David, OD [address] [facility] [address] [place], [place] [phone] (Wo rk) 05/11/2022 Virtual Visit Pharm D Diana Desir , [facility] [address] [place] [address] (Wo rk) 05/14/2022 Office Visit Cardiology Livan Sharif MD [address] [facility] [address] [place], [place] [address] (Wo rk) 05/31/2022 Office Visit Family [facility] Valery Veronica PABaldo [address] [place] [address] (Wo rk) documented as of this encounter Procedures Procedure Name Priority Date/Time Associated Diagnosis Comme nts VOIDING Routine 05/31/2007 10:13 AM Results for this CYSTOGRAM LUMBER HACKER procedure are i n the results section. HC US Routine 05/31/2007 9:10 AM Results f or this RETROPERITONEAL, LUMBER HACKER procedure a re in COMPLETE the results section. documented in this encounter Results X-RAY URETHROCYSTOGRAM+VOIDING (05/31/2007 10:13 AM LUMBER HACKER) Anatomical Region Laterality Modality Other Specimen (Source) Anatomical Collection Method Collection Time Re ceived Time Location / / Volume Laterality 05/31/2007 10:13 AM LUMBER HACKER Impressions 05/31/2007 10:22 AM LUMBER HACKER EXAM: ??CYSTOGRAM VOIDING HISTORY: ??Pyelonephritis 0.9 min fluoro time used 300 ml of cysto Conray 2 FINDINGS: The bladder is filled with yolanda roximately 250 cc of contrast material. During filling there was no lo w pressure reflux. The bladder has a normal contour throughout the vari ous degrees of filling. Ultimately the patient became slightly a gitated and filling was terminated. The patient was able to void at least part of the bladder and during that time no reflux was seen. However with the bladder more than half full she could no longer empty . We sent her to the bathroom and she was able to empty her bladder. F inal film demonstrates no remaining contrast within the bladder at all and no evidence of reflux. Incidentally on the building construction ironworker film there is a large amount of rectosigmoid fecal content,a fecal impaction. CONCLUSION: 1. Normal voiding cystourethrogram. 2. No reflux. 3. There is a rectosigmoid fecal impacti on. Yanely Doss MD [facility] SONO RETROPERITONEAL (05/31/2007 9:10 AM LUMBER HACKER) Anatomical Region Laterality Modality Other Specimen (Source) Anatomical Collection Method Collection Time Re ceived Time Location / / Volume Laterality 05/31/2007 9:10 AM LUMBER HACKER Impressions 05/31/2007 10:03 AM LUMBER HACKER RETROPERITONEAL ULTRASOUND 05/31/2007 HISTORY: Pyelonephritis. COMPARISON: 04/19/2007. FINDINGS: The kidneys are normal in size and echogenicity. No calculus, hydronephrosis, or evidence of obstruction is seen. No adjacent soft tissue pathology is identi fied. The bladder is unremarkable. IMPRESSION: Unremarkable and unchanged r etroperitoneal ultrasound. Yanely Doss MD [employer] [facility] documented in this encounter Visit Diagnoses Not on filedocumented in this encounter
--- OUTSIDE RECORDS SUMMARY | 2022-04-28 01:25 | XMS_ITS | Encounter Summary ---
:2000 Author Organization [place] Address [address] [place] [address] Care Team Providers Name Role Phone Cinthia Amado MD Primary Care Provider Noe Egan MD Unavailable Encounter Details Date Type Department Care Team Description 09/29/2018 Travel Social History Tobacco Use Types Packs/Day Years Used Date Smoking Tobacco: Every Day Alcohol Use Standard Drinks/Week Comments Yes 0 (1 standard drink = 0.6 oz [...] How often do you attend taoist or gnosticist services? Never 09/22/2021 Do you [...] Office Visit Family Practice Anthony Doe PAUcheC [address] [place], [place] [phone] (Wo rk) 05/03/2022 Office Visit Dermatology Neil Kent M D [address] [place], [place] [address] (Wo rk) 05/05/2022 Office Visit Optometry Yeny David, OD [address] [facility] [address] [place], [place] [phone] (Wo rk) 05/11/2022 Virtual Visit Pharm D Diana Desir , [facility] [address] [place], [place] [address] (Wo rk) 05/14/2022 Office Visit Cardiology Livan Sharif MD [address] [facility] [address] , [facility] [address] [place], [place] [address] (Wo rk) 05/31/2022 Office Visit Family Practice Valery Veronica PABaldo [address] [place], [place] [address] (Wo rk) documented as of this encounter Visit Diagnoses Not on filedocumented in this encounter Care Teams Accounting Support Specialist Relationship Specialty Start Date End Date Cinthia Amado MD PCP - General Pediatrics 05/11/18 04/24/19 AYSHA [place] [address] [place] [id number] Noe Egan MD Assigned PCP 09/07/18 05/05/19 [address] [place] [address] documented as of this encounter
--- OUTSIDE RECORDS SUMMARY | 2022-04-28 01:25 | XMS_ITS | Encounter Summary ---
:2000 Author Organization [place] Address [address] [place] [address] Care Team Providers Name Role Phone Unavailable Primary Care Provider Unavailable Encounter Details Date Type Department Care Team Description 02/01/2008 Historic Results INTERFACED REPORT Keith Cheng MD EMERGENCY PHYSIC [facility] [address] [place], [place] [address] (Wo rk) Social History Tobacco Use Types [...] How often do you attend alevism or buddhist services? Never 09/22/2021 Do you belong to [...] Office Visit Family Practice Anthony Doe PABaldo [address] [place], [place] [phone] (Wo rk) 05/03/2022 Office Visit Dermatology Neil Kent M D [address] [place], [place] [address] (Wo rk) 05/05/2022 Office Visit Optometry Yeny David, OD [address] [facility] [address] [place], [place] [phone] (Wo rk) 05/11/2022 Virtual Visit Pharm D Diana Desir , [facility] [address] [place], [place] [phone] (Wo rk) 05/14/2022 Office Visit Cardiology Livan Sharif MD [address] [facility] [address] [place], [place] [address] (Wo rk) 05/31/2022 Office Visit Family Practice Valery Veronica PA-C [address] [place], [place] [address] (Wo rk) documented as of this encounter Procedures Procedure Name Priority Date/Time Associated Comments Diagnosis ROUTINE UA WITH STAT 02/01/2008 3:30 PM Result s for this MICROSCOPIC CDT procedure are i n the results section. URINE CULTURE STAT 02/01/2008 3:30 PM Results for this CDT procedure are i n the results section. CBC WITH PLATELETS & STAT 02/01/2008 3:20 PM R esults for this DIFFERENTIAL CDT procedure are i n the results section. BASIC METABOLIC PANEL STAT 02/01/2008 3:20 PM Results for this CDT procedure are i n the results section. documented in this encounter Results (ABNORMAL) Routine UA with microscopic (02/01/2008 3:30 PM CDT) [facility] Method Time Signature Source Midstream MISYS Urine Color Urine Yellow MISYS Appearance Urine Clear MISYS Glucose Urine Negative NEG mg/dL MISYS Bilirubin Urine Negative NEG MISYS Ketones Urine 40 (A) NEG mg/dL MISYS Specific [place] 1.027 1.003 - MISYS Urine 1.035 Blood Urine Negative NEG MISYS pH Urine 6.0 5.0 - 7.0 MISYS pH Protein Albumin 30 (A) NEG mg/dL MISYS Urine Urobilinogen Normal 0.0 - 2.0 MISYS mg/dL mg/dL Nitrite Urine Negative NEG MISYS Leukocyte Trace (A) NEG MISYS Esterase Urine WBC Urine 10 (H) 0 - 2 MISYS /HPF RBC Urine 3 (H) 0 - 2 MISYS /HPF Bacteria Urine Few (A) NEG /HPF MISYS Mucous Urine Present (A) NEG /LPF MISYS Specimen Anatomical Collection Method Collection Time Receive d Time (Source) Location / / Volume Laterality 02/01/2008 3:30 PM 8 3:08 CDT PM CDT Rey Cheng MD LAB - URINE ORDERABLES Performing Organization Address City/[facility]/ZIP Code Phon e Number MISYS Urine culture (02/01/2008 3:30 PM CDT) [facility] Method Time Signature Specimen Midstream MISYS Description Urine Culture Micro No growth MISYS Micro Report FINAL MISYS Status 02/03/2008 Specimen Anatomical Collection Method Collection Time Receive d Time (Source) Location / / Volume Laterality 02/01/2008 3:30 PM 8 3:08 CDT PM CDT Rey Cheng MD LAB - MICRO GENERAL ORDERABL ES Performing Organization Address City/[facility]/ZIP Code Phon e Number MISYS (ABNORMAL) CBC with platelets differential (02/01/2008 3:20 PM CDT) [facility] Method Time Signature MCV 73 70 - 100 MISYS fl MCH 24.5 (L) 26.5 - MISYS 33.0 pg MCHC 33.3 31.5 - MISYS 36.5 g/dL RDW 13.4 10.0 - MISYS 15.0 % WBC 12.1 5.0 - MISYS 14.5 10e9/L RBC Count 4.82 3.7 - 5.3 MISYS 10e12/L Hemoglobin 11.8 10.5 - MISYS 14.0 g/dL Hematocrit 35.4 31.5 - MISYS 43.0 % % Neutrophils 79 (H) 32 - 54 % MISYS % Lymphocytes 12 (L) 27 - 57 % MISYS % Monocytes 9 0 - 10 % MISYS % Eosinophils 0 0 - 6 % MISYS % Basophils 0 0 - 1 % MISYS Platelet Count 182 150 - 450 MISYS 10e9/L Absolute 9.5 (H) 1.3 - 8.1 MISYS Neutrophil 10e9/L Absolute 1.5 1.1 - 8.6 MISYS Lymphocytes 10e9/L Absolute 1.1 0.0 - 1.1 MISYS Monocytes 10e9/L Absolute 0.0 0.0 - 0.7 MISYS Eosinophils 10e9/L Absolute 0.0 0.0 - 0.2 MISYS Basophils 10e9/L Diff Method Automated MISYS Method Specimen Anatomical Collection Method Collection Time Receive d Time (Source) Location / / Volume Laterality 02/01/2008 3:20 PM 8 3:08 CDT PM CDT Rey Cheng MD LAB - BLOOD ORDERABLES Performing Organization Address City/State/ZIP Code Phon e Number MISYS (ABNORMAL) Basic metabolic panel (02/01/2008 3:20 PM CDT) P athologist Signature Sodium 137 133 - 143 MISYS mmol/L Potassium 3.8 3.4 - 5.3 MISYS mmol/L Chloride 102 96 - 110 MISYS mmol/L Carbon Dioxide 23 20 - 32 MISYS mmol/L Glucose 102 (H) 60 - 99 MISYS mg/dL Urea Nitrogen 13 5 - 24 MISYS mg/dL Creatinine 0.50 0.15 - MISYS 0.53 mg/dL Comment: New IDMS-traceable calibration beginning 11/09/07 GFR Estimate GFR not calculated, patient <16 mL/min/1.7m2 MISYS years old. GFR Estimate If Black GFR not calculated, patient <16 mL/min/1.7m2 MISYS years old. Calcium 9.3 8.7 - 10.8 mg/dL MISYS Anion Gap 12 6 - 17 mmol/L MISYS Specimen Anatomical Collection Method Collection Time Receive d Time (Source) Location / / Volume Laterality 02/01/2008 3:20 PM 8 3:08 CDT PM CDT Rey Cheng MD LAB - BLOOD ORDERABLES Performing Organization Address City/State/ZIP Code Phon e Number MISYS documented in this encounter Visit Diagnoses Not on filedocumented in this encounter
--- OUTSIDE RECORDS SUMMARY | 2022-04-28 01:25 | XMS_ITS | Encounter Summary ---
:2000 Author Organization [place] Address [address] [place] [address] Care Team Providers Name Role Phone Unavailable Primary Care Provider Unavailable Encounter Details Date Type Department Care Team Description 04/26/2007 Historic Notes INTERFACED REPORT Interface, Transcript onMD Social History Tobacco Use Types Packs/Day Years [...] How often do you attend gnosticism or gnosticism services? Never 09/22/2021 Do you [...] documented as of this encounter Progress Notes Interface, Teacher Early Childhood Development - 09/28/2010 8:41 AM CDT Patient Status Patient Status - Physical status Stable (s/s of potential complications absent or manageable) - Psychosocial status Stable Discharge Planning - Discharge From: [facility] - Patient Care Unit: peds - PCU - Method of discharge: Ambulatory - Transportation: Private Discharge Information Discharge Information - Discharge information Discharge instructions reviewed with pt/family/so; Prescriptions given - Accompanied by Parent - Mode of Travel Ambulatory Medications and Prescriptions Medications and Prescriptions - Medications and Prescriptions given to patient Prescriptions Follow Up Care - Physician name: Next Thursday 05/[address] Doss for recheck. Call [phone] to make an apt. Signatures FRANCISCO CAR (RN)[Signed 26-Apr-2007 11:07] Authored: Patient Status, Discharge Planning, Discharge Information, Medications and Prescriptions, Follow Up Care documented in this encounter Plan of Treatment Upcoming Encounters Date Type Specialty Care Team Description 04/28/2022 Office Visit Family Practice Anthony Doe, ROVERT[place] [address] [place], [place] [phone] (Wo rk) 05/03/2022 Office Visit Dermatology Neil Kent M D [address] [place], [place] [address] (Wo rk) 05/05/2022 Office Visit Optometry Yeny David, OD [address] [facility] [place] [address] (Wo rk) 05/11/2022 Virtual Visit Pharm Diana Eckert , [facility] [address] [place], [place] [address] (Wo rk) 05/14/2022 Office Visit Cardiology Livan Sharif MD [address] [place], [place] [phone] (Wo rk) 05/31/2022 Office Visit Family Practice Valery Veronica PA-C [address] [place] [address] (Wo rk) documented as of this encounter Visit Diagnoses Not on filedocumented in this encounter
--- OUTSIDE RECORDS SUMMARY | 2022-04-28 01:25 | XMS_ITS | Encounter Summary ---
:2000 Author Organization [place] Address [address] [place] [address]. [place] [address] Care Team Providers Name Role Phone Unavailable Primary Care Provider Unavailable Encounter Details Date Type Department Care Team Description 02/01/2008 Historic Notes INTERFACED REPORT Interface, Transcript onMD [...] How often do you attend anglican or samaritan services? Never 09/22/2021 Do you [...] as of this encounter Progress Notes Interface, Aircraft Hydraulic Equipment Mechanic - 09/27/2010 7:00 PM CDT General Information - How to be addressed Kim - Arrived from Emergency department - personal lines appraiser to Caleb Le notify: - Phone 1: [phone] mom cell - Cell dad cell - Is this person the Yes patient's legal guardian? Advance Directive - <R> Do you have an No (Minor) Advanced Health Care Directive? Valuables - Valuables No Health and Illness History - Reason for fever max of 103 at home, brought to clinic, admission/chief some nausea... no vomiting complaint as stated by patient Allergies Latex ?? Latex;Itching, Inactive ?? No Known Allergies;Active Medications - Medications brought Yes to hospital - Medication m has Disposition Substance Use - Tobacco Use None - Exposure to Second Not exposed to second hand smoke Hand Smoke - Caffeine Use No - History of Alcohol No Use - History of street No drug/inhalant/ medication abuse Family History - History of family Yes illness - Sibling History sister hissstory frequent pneumonia - Grandparent History Heart disease, cancer Review of Systems - Cardiac Problems No - Pulmonary Problems No - Peripheral Vascular No Problems - Neuro Muscular No Problems - ENT Problems No - GI Problems No - Date of last bowel 04-15-07 movement - Usual bowel pattern Daily - Bowel Program No - Problems Yes - reflux Conditions/Problems - Bladder Program No - Skin Problems No - Immune Problems No - <R> Immunizations Immunizations current Current - Endocrine Problems No - Mental Health No Problems Growth and Development - 4 to 6 Years no problems Cognitive/Perceptual - How does the child does hide it let you know he's/she's hurting? - History of Chronic No Pain - Alterations in No Sensation - Vision Problems No - Use of Sensory No Assistive Devices - Reading Problems No - Speech/Communication No Problems - Changes in thought No Process/Behavior Activity Exercise/Self Care - <R> Functional Standing/walking screen: Recent decline in child's ability to perform: - Important activities dance - Regular Exercise Yes - Describe usual Excellent activity tolerance - Financial Concerns No Nutrition/Metabolic - Regular Meal Pattern Breakfast; Lunch; Dinner - <R> Nutrition Risk No indicators present Screen Health Perception/Health Management - Barriers to Following None Health Advice Sleep/Relaxation - Problems Sleeping No Role Relationships - Whom child lives with Mother - Who also lives in the brother, and two sisters home with the child? - <R> NURSE No OBSERVATION: Is there reason to suspect that within the past 3 years this child has been abused or neglected? Coping/Stress Tolerance - Have you had a recent No major change/significant loss/stressor in your life - What helps child Videos; art relax/calm down Values/Beliefs/Spiritual Care - A: Address: Do you No have any cultural, spiritual, samaritan issues/concerns? - Would you like Does not wish to have anyone contacted pastoral care/clergy/travel money advisor notified? Mutuality/Individual Preferences - <R> What information none would help us give your child/family more personalized care? - <R> What, if any None limitations on visitors,TV, or phone calls would you like Ebony Chris (RN)[Signed 16:51] Authored: General Information, Advance Directive, Valuables, Health and Illness History, Allergies, Medications, Substance Use, Family History, Review of Systems, Growth and Development, Cognitive/Perceptual, Activity Exercise/Self Care, Nutrition/Metabolic, Health Perception/Health Management, Sleep/R elaxation, Role Relationships, Coping/Stress Tolerance, Values/Beliefs/Spiritual Care, Mutuality/Individual Preferences documented in this encounter Plan of Treatment Upcoming Encounters Date Type Specialty Care Team Description 04/28/2022 Office Visit Family Practice Anthony Doe PA-C [address] [place], [place] [phone] (Wo rk) 05/03/2022 Office Visit Dermatology Neil Kent M D [address] [place] [phone] (Wo rk) 05/05/2022 Office Visit Optometry Yeny David, OD [address] [facility] [address] [place] [phone] (Wo rk) 05/11/2022 Virtual Visit Pharm D Diana Desir , [facility] [address] [place] [address] (Wo rk) 05/14/2022 Office Visit Cardiology Livan Sharif MD [address], [facility] [address] [place] [address] (Wo rk) 05/31/2022 Office Visit Family Practice Valery Veronica , PABaldo [address] [place] [address] ([place] rk) documented as of this encounter Visit Diagnoses Not on filedocumented in this encounter
--- OUTSIDE RECORDS SUMMARY | 2022-04-28 01:25 | XMS_ITS | Encounter Summary ---
:2000 Author Organization [facility] Address [address] [place] [address]. [place] [address] Care Team Providers Name Role Phone Noe Egan MD Unavailable Annabelle Lagunas APRN AERONAUTICAL RESEARCH ENGINEER Primary Care Provider [phone] Reason for Visit Reason Comments Physical Encounter Details Date Type Department Care Team Description 05/02/2019 Office Visit [facility] Rakesh Cid general medical examination at a health care facility (Primary Dx); [facility] ROVERTO Landers Anxiety; [place] [address] [address] Tobacco abuse counseling; [address], [address] [place] [address] Possible exposure to STD; [place], [place] [phone] (Wo rk) Psoriasis [id number] [phone] Social History Tobacco Use Types Packs/Day Years [...] week 09/22/2021 How often do you attend jewish or adventist services? Never 09/22/2021 Do you belong to any clubs or organizations such as No 09/22/2021 jewish groups, unions, fraternal or athletic groups, or [...] Sign Reading Time Taken Comments Blood Pressure 120/74 05/02/2019 9:03 AM CDT Pulse 75 05/02/2019 9:03 AM CDT Temperature 36.6 ??C (97.9 ??F) 05/02/2019 9:03 AM CDT Respiratory Rate 16 05/02/2019 9:03 AM CDT Oxygen Saturation 98% 05/02/2019 9:03 AM CDT Inhaled Oxygen Concentration - - Weight 76.2 kg (168 lb) 05/02/2019 9:03 AM CDT Height 167.6 cm (5' 6) 05/02/2019 9:03 AM CDT Body Mass Index 27.12 05/02/2019 9:03 AM CDT documented in this encounter Patient Instructions Patient InstructionsAmerica Shahid CMA - 05/02/2019 8:40 AM CDT Preventive Health Recommendations Female Ages 18 to [...] six months for an exam and cleaning. Look for 7mcg patches Call for zoloft when you need it Call if you want to do chantix documented in this encounter Progress Notes Rakesh Cid PA-C - 05/02/2019 8:40 AM CDT SUBJECTIVE: CC: Kim Johnson is an 19 year old woman who presents for preventive health visit. Healthy Habits: Getting at least 3 servings of Calcium per day: NO Bi-annual eye exam: NO Dental care twice a year: Yes Sleep apnea or symptoms of sleep apnea: None Diet: Regular (no restrictions) Frequency of exercise: None Taking medications regularly: No Barriers to taking medications: Problems remembering to take them Medication side effects: Other PHQ-2 Total Score: Additional concerns today: Yes Trying to quit smoking- tried cold turkey. Has quit before for 7 months. Has used a vape also beforeand trying that now. Has patches at home. Sister has used chantix. Diagnosed with Chlamydia 2 months ago- at [facility], would like testing again though no current symptoms.Partner treated whom she is still with, she also did complete treatment as directed. Recent diagnosis of epilepsy- [facility]. Father also has epilepsy. History of anxiety- takes zoloft for several years, previously prescribed by electrician underground. Will likely need rx after next refill. Today's PHQ-2 Score: PHQ-2 (??1998 Pfizer) 05/02/2019 Q1: Little interest or pleasure in doing things 1 Q2: Feeling down, depressed or hopeless 1 PHQ-2 Score 2 Q1: Little interest or pleasure in doing things Several days Q2: Feeling down, depressed or hopeless Several days PHQ-2 Score 2 Abuse: Current or Past(Physical, Sexual or Emotional)- NO Do you feel safe in your environment? Yes Social History Tobacco Use ??? Smoking status: Light Tobacco Smoker Packs/day: 0.00 Types: Other ??? Smokeless tobacco: Never Used ??? Tobacco comment: Vaping Substance Use Topics ??? Alcohol use: Not Currently If you drink alcohol do you typically have >3 drinks per day or >7 drinks per week? No Alcohol Use 05/02/2019 Prescreen: >3 drinks/day or >7 drinks/week? No Prescreen: >3 drinks/day or >7 drinks/week? - Reviewed orders with patient. Reviewed health maintenance and updated orders accordingly - Yes Labs reviewed in [facility] Mammogram not appropriate for this patient based on age. History of abnormal Pap smear: NO - under age 21, PAP not appropriate for age Reviewed and updated as needed this visit by clinical staff Tobacco Allergies Meds Problems Med Hx Surg Hx Fam Hx Soc Hx Reviewed and updated as needed this visit by Provider Tobacco Allergies Meds Problems Med Hx Surg Hx Fam Hx Review of Systems Constitutional: Negative for chills and fever. HENT: Negative for congestion, ear pain, hearing loss and sore throat. Eyes: Positive for visual disturbance. Negative for pain. Respiratory: Positive for shortness of breath. Negative for cough. Cardiovascular: Positive for chest pain and palpitations. Negative for peripheral edema. Gastrointestinal: Positive for heartburn. Negative for abdominal pain, constipation, diarrhea, hematochezia and nausea. Breasts: Negative for tenderness, breast mass and discharge. Genitourinary: Positive for vaginal bleeding and vaginal discharge. Negative for dysuria, frequency,genital sores, hematuria, pelvic pain and urgency. Musculoskeletal: Positive for myalgias. Negative for arthralgias and joint swelling. Skin: Negative for rash. Neurological: Negative for dizziness, weakness, headaches and paresthesias. Psychiatric/Behavioral: Negative for mood changes. The patient is nervous/anxious. OBJECTIVE: BP 120/74 (BP Location: Right arm, Patient Position: Sitting, Cuff Size: Adult Regular) Pulse 75 Temp 97.9 ??F (36.6 ??C) (Oral) Resp 16 Ht 1.676 m (5' 6) Wt 76.2 kg (168 lb) SpO2 98% BMI 27.12 kg/m?? Physical Exam GENERAL: healthy, alert and [...] palpable axillary masses or adenopathy CV: regular rates and rhythm, normal S1 S2, no S3 or S4, no murmur, click or rub, peripheral pulses strong and no peripheral edema ABDOMEN: soft, nontender, no hepatosplenomegaly, no masses and bowel sounds normal MS: no gross musculoskeletal defects noted, no edema- some chest wall tenderness left chest SKIN: acne and some erythematous patches on hands dorsal- flaking skin on external ears NEURO: Normal strength and tone, mentation intact and speech normal PSYCH: mentation appears normal, affect normal/bright Diagnostic Test Results: Labs reviewed in Epic ASSESSMENT/PLAN: 1. Routine general medical examination at a health care facility 2. Anxiety She can call when next zoloft Rx needed. KALYN-7 SCORE 10/02/2018 05/02/2019 Total Score - 4 (minimal anxiety) Total Score 18 4 PHQ-9 SCORE 10/02/2018 05/02/2019 PHQ-9 Total Score MyChart 10 (Moderate depression) 4 (Minimal depression) PHQ-9 Total Score 10 4 3. Tobacco abuse counseling We discuss possible treatments. She is going to check what strength nicotine patches she has at home. When she tried previously they made her sick-- I recommended making sure they were 7mcg strength. Discussed Chantix and we will think about this as the mood side effects could be limiting for her. [place] call back if she wants to try this. 4. Possible exposure to STD Recheck lab. - Chlamydia trachomatis PCR 5. Psoriasis Refilled cream for her today. - triamcinolone (KENALOG) 0.1 % external cream; Apply topically 2 times daily Dispense: 80 g; Refill: 1 COUNSELING: Reviewed preventive health counseling, as reflected in patient instructions Estimated body mass index is 27.12 kg/m?? as calculated from the following: Height as of this encounter: 1.676 m (5' 6). Weight as of this encounter: 76.2 kg (168 lb). Weight management plan: Discussed healthy diet and exercise guidelines reports that she has been smoking other. She has been smoking about 0.00 packs per day. She has never used smokeless tobacco. Tobacco Cessation Action Plan: see above in plan Counseling Resources: ATP IV Guidelines Pooled Cohorts Equation Calculator Breast Cancer Risk Calculator FRAX Risk Assessment ICSI Preventive Guidelines Dietary Guidelines for Americans, 2009 USDA's MyPlate ASA Prophylaxis Lung CA Screening Rakesh Cid PA-C [facility] Answers for HPI/ROS submitted by the patient on 05/02/2019 If you checked off any problems, how difficult have these problems made it for you to do your work, take care of things at home, or get along with other people?: Somewhat difficult PHQ9 TOTAL SCORE: 4 KALYN 7 TOTAL SCORE: 4 documented in this encounter Plan of Treatment Upcoming Encounters Date Type Specialty Care Team Description 04/28/2022 Office Visit Family Practice Anthony Doe PA-C [address] [place], [place] [id number] ([place] carlson) 05/03/2022 Office Visit Dermatology Neil Kent M D [address] [place], [place] [id number] ([place] carlson) 05/05/2022 Office Visit Optometry Yeny David, OD [address] [facility] [place] [phone] ([place]erson carlson) 05/11/2022 Virtual Visit Pharm D Diana Desir , [facility] [address] [place], [place] [address] ([place] carlson) 05/14/2022 Office Visit Cardiology Livan Sharif MD [address] [place], [place] [id number] (Wo rk) 05/31/2022 Office Visit Family Practice Valery Veronica PA-C [address] [place] [address] ([place] rk) documented as of this encounter Procedures Procedure Name Priority Date/Time Associated Comments Diagnosis CHLAMYDIA TRACHOMATIS Routine 05/02/2019 9:52 AM Possible expo sure Results for this PCR CDT to STD procedure are i n the results section. documented in this encounter Results Chlamydia trachomatis PCR (05/02/2019 9:52 AM CDT) [facility] Method Time Signature Specimen Vagina 05/02/2019 [facility] Description 9:53 AM CDT [facility] Chlamydia Negative NEG^Negat 05/03/2019 INFECTIOUS Trachomatis PCR shyam 2:18 PM CDT [facility] Comment: Negative for C. trachomatis rRNA by [place] scription mediated amplification. A negative result by lath hand media maddie amplification does not preclude the presence of C. trachomatis infection because results are dependent on proper and adequate collection, absence of inhibitors, and sufficient rRNA to be detected. Specimen Anatomical Collection Method Collection Time Receive d Time (Source) Location / / Volume Laterality Specimen from 05/02/2019 9:52 AM 05/02/20 9:53 vagina CDT AM CDT (specimen) Rakesh Cid PA-C LAB - MICRO GENERAL ORDERABL ES Performing Organization Address City/State/ZIP Code Phon e Number [facility] [address] [place] [address] [facility], [facility] [place] [address] [phone] [facility] [address] [place] [address], [facility] documented in this encounter Visit Diagnoses Diagnosis Routine general medical examination at a health care facility - Primary Anxiety Anxiety state, unspecified Tobacco abuse counseling Counseling on substance use and abuse Possible exposure to STD Other specified personal history present ing hazards to health Psoriasis Other psoriasis documented in this encounter Additional Health Concerns Assessment Noted Time PHQ-9 Depression Total Score: 4 05/02/2019 9:51 AM CDT documented as of this encounter Care Teams Bead Builder Relationship Specialty Start Date End Date Annabelle Lagunas, PCP - General Nurse Practitioner - Family 05/13/19 ARLENE GRANADOS Noe Egan, Assigned PCP 09/07/1805/05 [id number] [address] [address] documented as of this encounter
--- OUTSIDE RECORDS SUMMARY | 2022-04-28 01:25 | XMS_ITS | Encounter Summary ---
:2000 Author Organization [facility] Address [address] [place] [address] Care Team Providers Name Role Phone Leonie Gonzalez Primary Care Provider [phone] Reason for Visit Reason Comments Chest Pain Encounter Details Date Type Department Care Team Description 10/07/2017 Emergency [facility] Mayra Vazquez MD Palpitations; [facility] Emergency [facility] t [facility] Chest pain, unspecified type [address] [place], [place] [address] [facility] [id number] [place] [address] (Wo rk) Social History Tobacco Use Types [...] How often do you attend [employer] or mandaen services? Never 09/22/2021 Do you [...] Sign Reading Time Taken Comments Blood Pressure 118/87 10/07/2017 9:15 PM CDT Pulse 124 10/07/2017 8:04 PM CDT Temperature 36.8 ??C (98.3 ??F) 10/07/2017 8:04 PM CDT Respiratory Rate 15 10/07/2017 9:15 PM CDT Oxygen Saturation 94% 10/07/2017 8:04 PM CDT Inhaled Oxygen Concentration - - Weight 68 kg (150 lb) 10/07/2017 8:04 PM CDT Height - - Body Mass Index - - documented in this encounter Discharge Instructions Discharge InstructionsMayra Vazquez MD - 10/07/2017 9:13 PM CDT Please follow up closely with your regular physician. Please return to the ED if your symptoms worsen or if you develop new or concerning symptoms. Discharge Instructions Palpitations Palpitations are an unusual awareness of your heartbeat. People often describe this as the heart skipping, fluttering, racing, irregular, or pounding. At this time, your doctor has found no signs that your palpitations are due to a serious or life-threatening condition. However, sometimes there is a serious problem that does not show up right away. It is important that you follow up with your doctor within 1 week, or as directed by your doctor today, to check for other serious problems. You may needmore blood tests, a stress test, heart monitoring, or other tests. Palpitations can be caused by caffeine, cigarettes, diet pills, energy drinks or supplements, other stimulants, and medications and street drugs. They can also be caused by anxiety, hormone conditions such as high thyroid, and other medical conditions. Sometimes they are a sign of abnormal rhythm in the heart, so you may need your heart checked. Return to the Emergency Department if: ??? You get chest pain or tightness. ??? You are short of breath. ??? You get very weak or tired. ??? You pass out or faint. ??? Your heart rate is over 120 beats per minute for more than 10 minutes while you are resting. ??? You have any new symptoms, like fever, cough, numb legs, or you cough up blood. ??? You have anything else that worries you. What can I do to help myself? Fill any prescriptions the doctor gave you and take them right away. ??? Follow your doctor???s instructions about the prescription medicines you are on. Sometimes the doctor may tell you to stop taking a medicine or change the dose. ??? If you smoke, this may be a good time to quit! The less you can smoke, the better. ??? Do not use energy drinks, diet pills, or stimulants. Limit your use of caffeine. Follow up with your doctor: ??? Within 1 week, or sooner if instructed. ??? If you keep having palpitations. ??? If you need help to quit smoking. If you were given a prescription for [...] call or return to the Emergency Department. Opioid Medication Information Pain medications are among the most commonly prescribed medicines, so we are including this information for all our patients. If you did not receive pain medication or get a prescription for pain medicine, you can ignore it. You may have been given a prescription for an opioid (narcotic) pain medicine and/or have received apain medicine while here in the Emergency Department. These medicines can make you drowsy or impaired. You must not drive, operate dangerous equipment, or engage in any other dangerous activities whiletaking these medications. If you drive while taking these medications, you could be arrested for DUI, or driving under the influence. Do not drink any alcohol while you are taking these medications. Opioid pain medications can cause addiction. If you have a history of chemical dependency of any type, you are at a higher risk of becoming addicted to pain medications. Only take these prescribed medications to treat your pain when all other options have been tried. Take it for as short a time and asfew doses as possible. Store your pain pills in a secure place, as they are frequently stolen and provide a dangerous opportunity for children or visitors in your house to start abusing these powerful medications. We will not replace any lost or stolen medicine. As soon as your pain is better, you should flush all your remaining medication. Many prescription pain medications contain Tylenol?? (acetaminophen), including Vicodin??, Tylenol #3??, [place]??, Lortab??, and Percocet??. You should not take any extra pills of Tylenol?? if you are using these prescription medications or you can get very sick. Do not ever take more than 3000 mg of acetaminophen in any 24 hour period. All opioids tend to cause constipation. Drink plenty of water and eat foods that have a lot of fiber, such as fruits, vegetables, prune juice, apple juice and high fiber cereal. Take a laxative if you don???t move your bowels at least every other day. Miralax??, Milk of Magnesia, Colace??, or Senna?? can be used to keep you regular. Remember that you can always come back to the Emergency Department if you are not able to see your regular doctor in the amount of time listed above, if you get any new symptoms, or if there is anything that worries you. Discharge Instructions Chest Pain You have been seen today for chest pain or discomfort. At this time, your doctor has found no signs that your chest pain is due to a serious or life-threatening condition, (or you have declined more testing and/or admission to the hospital). However, sometimes there is a serious problem that does not show up right away. Your evaluation today may not be complete and you may need further testing and evaluation. You need to follow-up with your regular doctor within 3 days. Return to the Emergency Department if: ??? Your chest pain changes, gets worse, starts to happen more often, or comes with less activity. ??? You are short of breath. ??? You get very weak or tired. ??? You pass out or faint. ??? You have any new symptoms, like fever, cough, numb legs, or you cough up blood. ??? You have anything else that worries you. Until you follow-up with your regular doctor please do the following: ??? Take one aspirin daily unless you have an allergy or are told not to by your doctor. ??? If a stress test appointment has been made, go to the appointment. ??? If you have questions, contact your regular doctor. If your doctor today has told you to follow-up with your regular doctor, it is very important that you make an appointment with your clinic and go to the appointment. If you do not follow-up with your primary doctor, it may result in missing an important development which could result in permanent injury or disability and/or lasting pain. If there is any problem keeping your appointment, call your doctor or return to the Emergency Department. If you were given a prescription for [...] call or return to the Emergency Department. Opioid Medication Information Pain medications are among the most commonly prescribed medicines, so we are including this information for all our patients. If you did not receive pain medication or get a prescription for pain medicine, you can ignore it. You may have been given a prescription for an opioid (narcotic) pain medicine and/or have received apain medicine while here in the Emergency Department. These medicines can make you drowsy or impaired. You must not drive, operate dangerous equipment, or engage in any other dangerous activities whiletaking these medications. If you drive while taking these medications, you could be arrested for DUI, or driving under the influence. Do not drink any alcohol while you are taking these medications. Opioid pain medications can cause addiction. If you have a history of chemical dependency of any type, you are at a higher risk of becoming addicted to pain medications. Only take these prescribed medications to treat your pain when all other options have been tried. Take it for as short a time and asfew doses as possible. Store your pain pills in a secure place, as they are frequently stolen and provide a dangerous opportunity for children or visitors in your house to start abusing these powerful medications. We will not replace any lost or stolen medicine. As soon as your pain is better, you should flush all your remaining medication. Many prescription pain medications contain Tylenol?? (acetaminophen), including Vicodin??, Tylenol #3??, [place]??, Lortab??, and Percocet??. You should not take any extra pills of Tylenol?? if you are using these prescription medications or you can get very sick. Do not ever take more than 3000 mg of acetaminophen in any 24 hour period. All opioids tend to cause constipation. Drink plenty of water and eat foods that have a lot of fiber, such as fruits, vegetables, prune juice, apple juice and high fiber cereal. Take a laxative if you don???t move your bowels at least every other day. Miralax??, Milk of Magnesia, Colace??, or Senna?? can be used to keep you regular. Remember that you can always come back to the Emergency Department if you are not able to see your regular doctor in the amount of time listed above, if you get any new symptoms, or if there is anything that worries you. documented in this encounter Medications at Time of Discharge Medication Sig Dispensed Refills Start Date End Date naproxen (NAPROSYN) 500 MG Take 500 mg by 0 04/1209/30/2020 tablet mouth triamcinolone (KENALOG) 0.1 0 09/13/19 18 10/02/2018 % external cream documented as of this encounter ED Notes Mor Greer RN - 10/07/2017 9:23 PM CDT Pt and mother decided to decline work up and want to DC. Mor Greer RN - 10/07/2017 9:08 PM CDT MD talked to pts mother, pt now talking to her mother on the phone. Mor Greer RN - 10/07/2017 8:53 PM CDT Pt refuses Ativan and refuses lab work, says she talked to her mom and she said I should just go home and go to bed. Told her that MD may have to talk to her mother before she can leave. Pt agreed. Mary Carolina RN - 10/07/2017 8:07 PM CDT Patient presents with complaints of chest pain and palpitations which started 30 min's ago. Patient is concerned that the weed I was smoking may have been laced with something. Patients mother Anna called at [phone] and verbal consent was given to treat patient. Patient states I thoughtI was dying. Patient is reporting an improvement in symptoms currently. ABC intact without need forintervention. Corry Ennis RN - 10/07/2017 7:59 PM CDT States smoking weed, and unsure if it was laced. C/o chest pain and palpitations. Appears anxious Mayra Vazquez MD - 10/07/2017 7:57 PM CDT History Chief Complaint: Palpitations HPI Kim Johnson is a 17 year old female with a history of panic attacks who presents to the emergencydepartment for evaluation of a panic attack. The patient states she felt anxious this afternoon, felt her heart racing, and she thought she was having a panic attack. The patient has a history of panic attacks, for which she has been prescribed medication. Prior to onset of her symptoms today, the patient did smoke some marijuana. The patient also complains of chest pain. The patient came to the ED just to be reassured there is no problem with her. The patient doesn't have any shortness of breath orhistory of heart problems. She denies other concerns or complaints at this time. Allergies: NKDA Medications: The patient is currently on no regular medications. Past Medical History: Psoriasis Past Surgical History: The patient does not have any pertinent past surgical history Family History: Heart problem Social History: The patient denies tobacco or alcohol use. Marital Status: Single [1] Review of Systems Respiratory: Negative for shortness of breath. Cardiovascular: Positive for chest pain and palpitations. Psychiatric/Behavioral: The patient is nervous/anxious. All other systems reviewed and are negative. Physical Exam First Vitals: BP: 138/88 Pulse: 124 Heart Rate: 124 Temp: 98.3 ??F (36.8 ??C) Resp: 20 Weight: 68 kg (150 lb) SpO2: 94 % Physical Exam Constitutional: The patient is oriented to person, place, and time. Alert and cooperative. HENT: Right Ear: External ear normal. Left Ear: External ear normal. Nose: Nose normal. Mouth/Throat: Uvula is midline, oropharynx is clear and moist and mucous membranes are normal. No posterior oropharyngeal edema or erythema. Eyes: Conjunctivae, EOM and lids are normal. Pupils are equal, round, and reactive to light. Neck: Trachea normal. Normal range of motion. Neck supple. Cardiovascular: tachcyardia, regular rhythm, normal heart sounds, and intact distal pulses. Pulmonary/Chest: Effort normal and breath sounds equal bilaterally. No crackles or wheezing. Abdominal: Soft. No tenderness. No rebound and no guarding. Musculoskeletal: Normal range of motion. No extremity tenderness or edema. Neurological: Alert and Oriented. Strength 5/5 in upper and lower extremities bilaterally. Sensationintact to light touch throughout. Skin: Skin is dry. No rash noted. Emergency Department Course ECG: Indication: Chest pain Time: 2010. Rate 112 bpm. WI interval 130. QRS duration 88. QT/QTc 320/436. P-R-T axis 71 57 47. Sinus tachycardia. Nonspecific ST abnormality. Abnormal ECG. Read time: 2017 Interventions: 2102 Ativan 0.5 mg PO Emergency Department Course: Nursing notes and vitals reviewed. 2039 I performed an exam of the patient as documented above. EKG obtained in the ED, see results above. 2106 I rechecked the patient and discussed the results of her workup thus far. Findings and plan explained to the patient. Patient discharged home with instructions regarding supportive care, medications, and reasons to return. The importance of close follow-up was reviewed. I personally reviewed the laboratory results with the patient and answered all related questions prior to discharge. Impression & Plan Medical Decision Making: Kim Johnson is a 17 year old female who presents to the emergency department for evaluation of palpitations, chest pain, and anxiety. Upon presentation to the ED, the patient is non-toxic appearing.She is tachycardic but vitals are otherwise within normal limits and stable. On exam, she is well appearing. She is alert with a non-focal neurologic exam. Aside from tachycardia, cardiopulmonary exam is unremarkable. The abdomen is soft and non-tender throughout. She has no extremity edema. The rest of her exam is as noted above. EKG was obtained an demonstrates sinus rhythm. There are no concerningacute ischemic changes. There is no evidence of WPW, Brugada, HOCM, prolonged QTc, or other arrhythmia. Differential includes, but is not limited to, ACS, PE, pneumonia, pneumothorax, aortic dissection, esophageal rupture, GERD, pericarditis, musculoskeletal chest wall pain, or anxiety. Upon arrival in the ED, the patient notes that her symptoms have already significantly improved. She does note thatthese sometimes are typical of a previous panic attack, and states that she feels that this is likely the etiology of her symptoms. I did discuss with the patient that I can't rule out other more serious pathologies, such as those mentioned above, without doing further lab or imaging evaluation. The patient notes that she understands, but declines any further workup at this time. She notes that she desires to be discharged to home. I did discuss the patient with her mom. I discussed with the patient's mom, that without doing any lab or imaging evaluation that I can't rule out any more serious underlying pathologies, such as the pathologies mentioned above. The patient's mom notes understanding butstates that she feels comfortable with the patient being discharged to home at this time without anyfurther intervention or evaluation. Given that the patient and her mom are competent to make their own decisions the patient will be discharged to home. I did discuss with the patient that she is welcome to return to the ED at any time. Return instructions were given. She was stable /improved at the time of discharge. Diagnosis: ICD-10-CM 1. Palpitations R00.2 2. Chest pain, unspecified type R07.9 Disposition: Discharged to home. Discharge Medications: I, Johnathan Vasquez, am serving as a scribe on 10/07/2017 at 8:40 PM to personally document services performed by Mayra Vazquez MD based on my observations and the provider's statements to me. Johnathan Vasquez 10/07/2017 [facility] Mayra Vazquez MD 10/09/17 0119 documented in this encounter Plan of Treatment Upcoming Encounters Date Type Specialty Care Team Description 04/28/2022 Office Visit Family [facility] Anthony Doe PA-C [address] [place] [address] (Wo rk) 05/03/2022 Office Visit Dermatology Neil Kent M D [address] [place] [address] (Wo rk) 05/05/2022 Office Visit Optometry Yeny David, OD [address] [place] [phone] (Wo rk) 05/11/2022 Virtual Visit Pharm Diana Eckert , [facility] [address] [place], [place] [phone] (Wo rk) 05/14/2022 Office Visit Cardiology Livan Sharif MD [address] [facility] [address] [place], [place] [id number] (Wo rk) 05/31/2022 Office Visit Family Practice Valery Veronica PAUcheC [address] [place] [address] (Wo rk) documented as of this encounter Procedures Procedure Name Priority Date/Time Associated Diagnosis Comme nts EKG 12-LEAD, STAT 10/07/2017 8:11 PM Results f or this TRACING ONLY CDT procedure are i n the results section. documented in this encounter Results EKG 12 lead (10/07/2017 8:11 PM CDT) [facility] Method Time Signature Interpretation ECG Click View RADIOLOGY Image link RESULTS to view waveform and result Specimen (Source) Anatomical Collection Method Collection Time Re ceived Time Location / / Volume Laterality 10/07/2017 8:11 PM CDT Mayra Vazquez MD ECG ORDERABLES Performing Organization Address City/State/ZIP Code Phon e Number RADIOLOGY RESULTS documented in this encounter Visit Diagnoses Diagnosis Palpitations Chest pain, unspecified type documented in this encounter Active and Recently Administered Medications Times are shown in CDT. Scheduled Medication Order 10/05/2017 10/06/2017 10/07/2017 LORazepam (ATIVAN) tablet 0.5 mg 2102 (Not Given - Provider: Mor Greer RN - Reason: Patient/family refused) 0.5 mg, Oral, ONCE, 10/07/17 at 2049, For 1 dose documented in this encounter Care Teams Wire Preparation Machine Tender Relationship Specialty Start Date End Date Leonie Gonzalez PCP - General Family Practice 10/07/17 05/10/18 [id number] [address] [place] [id number] documented as of this encounter
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
--- OUTSIDE RECORDS SUMMARY | 2022-04-28 01:25 | XMS_ITS | Encounter Summary ---
:2000 Author Organization [facility] Address [address] [place] [address] Care Team Providers Name Role Phone Cinthia Amado MD Primary Care Provider Noe Egan MD Unavailable Encounter Details Date Type Department Care Team Description 01/04/2019 Travel Social History Tobacco Use Types Packs/Day [...] How often do you attend religion or advent services? Never 09/22/2021 Do you [...] Office Visit Family Practice Anthony Doe, PAUcheC [address] [place], [place] [phone] (Wo rk) 05/03/2022 Office Visit Dermatology Neil Kent M D [address] [place] [phone] (Wo rk) 05/05/2022 Office Visit Optometry Yeny David, OD [address] [facility] [address] [place], [place] [phone] (Wo rk) 05/11/2022 Virtual Visit Pharm D Diana Desir , [facility] [address] [place] [address] (Wo rk) 05/14/2022 Office Visit Cardiology Livan Sharif MD [address] [facility] [address] [place], [place] [phone] (Wo rk) 05/31/2022 Office Visit Family Practice Valery Veronica PAUcheC [address] [place], [place] [phone] (Wo rk) documented as of this encounter Visit Diagnoses Not on filedocumented in this encounter Additional Health Concerns Assessment Noted Time PHQ-9 Depression Total Score: 10 10/03/2018 7:03 AM CD T documented as of this encounter Care Teams Metal Template Maker Relationship Specialty Start Date End Date Cinthia Amado MD PCP - General Pediatrics 05/11/18 04/24/19 A[facility] [place] [address] [place] [address] Noe Egan MD Assigned PCP 09/07/18 05/05/19 [address] [address] [id number] documented as of this encounter
--- OUTSIDE RECORDS SUMMARY | 2022-04-28 01:25 | XMS_ITS | Encounter Summary ---
:2000 Author Organization [facility] Address [address] [place] [address] Care Team Providers Name Role Phone Unavailable Primary Care Provider Unavailable Encounter Details Date Type Department Care Team Description 02/03/2008 Historic Results INTERFACED REPORT [place] [address] [place], [place] [address] (Wo rk) Social History [...] often do you attend oriental orthodox or confucianism services? Never 09/22/2021 Do you [...] Office Visit Family Practice Anthony Doe PA-C [address] [place], [place] [phone] (Wo rk) 05/03/2022 Office Visit Dermatology Neil Kent M D [address] [place], [place] [phone] (Wo rk) 05/05/2022 Office Visit Optometry Yeny David, OD [address] [facility] [address] [place], [place] [phone] (Wo rk) 05/11/2022 Virtual Visit Pharm D Diana Desir , [facility] [address] [place], [place] [phone] (Wo rk) 05/14/2022 Office Visit Cardiology Livan Sharif MD [address] [facility] [address] [place], [place] [address] (Wo rk) 05/31/2022 Office Visit Family [facility] Valery Veronica PA-C [address] [place], [place] [address] (Wo rk) documented as of this encounter Procedures Procedure Name Priority Date/Time Associated Diagnosis Comme nts ELECTROLYTE PANEL Routine 02/03/2008 8:21 AM Resu lts for this CDT procedure are i n the results section. CRP INFLAMMATION Routine 02/03/2008 8:21 AM Resul ts for this CDT procedure are i n the results section. documented in this encounter Results (ABNORMAL) CRP inflammation (02/03/2008 8:21 AM CDT) Patholo gist Method Time Signature CRP Inflammation 76.3 (H) 0.0 - 8.0 [facility] mg/L Specimen (Source) Anatomical Collection Method Collection Time Re ceived Time Location / / Volume Laterality 02/03/2008 8:21 AM 8 CDT Leidy Cortes MD LAB - BLOOD ORDERABLES Performing Organization Address City/State/ZIP Code Phon e Number [place] Electrolyte panel (02/03/2008 8:21 AM CDT) P athologist Signature Sodium 141 133 - 143 [place] mmol/L Potassium 5.1 3.4 - 5.3 [place] mmol/L Chloride 107 96 - 110 [place] mmol/L Carbon Dioxide 22 20 - 32 [place] mmol/L Anion Gap 12 6 - 17 [place] mmol/L Specimen (Source) Anatomical Collection Method Collection Time Re ceived Time Location / / Volume Laterality 02/03/2008 8:21 AM 8 CDT Leidy Cortes MD LAB - BLOOD ORDERABLES Performing Organization Address City/State/ZIP Code Phon e Number [facility] documented in this encounter Visit Diagnoses Not on filedocumented in this encounter
--- OUTSIDE RECORDS SUMMARY | 2022-04-28 01:25 | XMS_ITS | Encounter Summary ---
:2000 Author Organization [facility] Address [facility] [place] [address] Care Team Providers Name Role Phone Cinthia Amado MD Primary Care Provider Noe Egan MD Unavailable Reason for Referral Consultation - Closed Specialty Diagnoses / Procedures Referred By Contact Refer red To Contact Diagnoses History of seizure Noe Egan [facility] [address] [place] [address] [place] [address] Phone: Fax: Referral ID Status Reason Start Date Expiration Date Visits Requ ested Visits Authorized [id number] Closed 10/02/2018 10/02/2019 1 1 Reason for Visit Reason Comments New Patient Anxiety Headache Encounter Details Date Type Department Care Team Description 10/02/2018 Office Visit [facility] Noe Egan KALYN (gene ralized anxiety disorder) (Primary Dx); Clinic Dat Monsalve MD Screening examination for venereal disea se; [place] [address] [address] Screening for HIV (human immunodeficiency virus); Road, [address] Psoriasis; [place], [place] History of s eizure [phone] [id number] Social History Tobacco Use Types Packs/Day Years [...] How often do you attend scientology or faith services? Never 09/22/2021 Do you belong to [...] Reading Time Taken Comments Blood Pressure 120/74 10/02/2018 9:24 AM CDT Pulse 72 10/02/2018 9:24 AM CDT Temperature 36.8 ??C (98.3 ??F) 10/02/2018 9:24 AM CDT Respiratory Rate 16 10/02/2018 9:24 AM CDT Oxygen Saturation - - Inhaled Oxygen Concentration - - Weight 89.4 kg (197 lb) 10/02/2018 9:24 AM CDT Height 167.6 cm (5' 6) 10/02/2018 9:24 AM CDT Body Mass Index 31.8 10/02/2018 9:24 AM CDT Body Mass Index Percentile 96.02 % 10/02/2018 9:24 AM CD T Growth Chart: CDC (Girls, 2-20 Years) documented in this encounter Progress Notes Noe Egan MD - 10/02/2018 9:00 AM CDT History of Present Illness Depression & Anxiety Follow-up: Depression/Anxiety: Anxiety only Status since last visit:: Worsened Other associated symptoms of anxiety:: YES Significant life event:: No Current substance use:: None Depression symptoms:: None Today's PHQ-9 PHQ-9 Total Score: (P) 10 PHQ-9 Q9 Suicidal ideation: (P) Not at all Thoughts of suicide or self harm: Self-harm Plan: Self-harm Action: Safety concerns for self or others: Migraines: Headache Symptoms are: Stable Migraine frequency:: 4 per week Migraine Duration:: 2 hours Ability to perform ADL's:: Yes Migraine Rescue/Relief Medications:: Ibuprofen (Advil, Motrin) and Tylenol Effectiveness of rescue/relief medications:: Intermittent relief Migraine Preventative Medications:: None Neurological symptoms:: Numbness and Weakness ER or UC Visits:: None Diet: Regular (no restrictions) Frequency of exercise: 2-3 days/week Duration of exercise: 30-45 minutes Taking medications regularly: Yes Medication side effects: None, No muscle aches and No significant flushing Additional concerns today: Yes Previously with [facility], but insurance has changed. Has been using 100mg sertraline for anxiety. Has been a stable dose for a while, but anxiety has been getting worse over the last week or so. Previouslywas comfortable on this dose, but sharp increase in anxiety. In the past dose has been as high as 200mg, but had side effects. Buspar tried as adjunct, did not tolerate. Is a bit nervous about going tosleep, has woken to panic attack. Confirms excessive worry. Also of note, did have seizure like episode last May. Has not had since, but father does have epilepsy. Advised to f/u with neuro, has not done so. Review of Systems Constitutional: Negative. Cardiovascular: Positive for palpitations. Neurological: Negative. Psychiatric/Behavioral: The patient is nervous/anxious and has insomnia. Physical Exam Constitutional: She is oriented to person, place, and time. Neck: No thyromegaly present. Cardiovascular: Normal rate, regular rhythm and normal heart sounds. Pulmonary/Chest: Effort normal and breath sounds normal. Neurological: She is alert and oriented to person, place, and time. Skin: Skin is warm and dry. Psychiatric: Her behavior is normal. Her mood appears anxious. Vitals reviewed. (F41.1) KALYN (generalized anxiety disorder) (primary encounter diagnosis) Comment: adding adjunct, may also help sleep. Plan: mirtazapine (REMERON) 15 MG tablet (Z11.3) Screening examination for venereal disease Comment: Plan: (Z11.4) Screening for HIV (human immunodeficiency virus) Comment: Plan: (L40.9) Psoriasis Comment: refill Plan: triamcinolone (KENALOG) 0.1 % external cream RTC in 2w Noe Egan MD documented in this encounter Plan of Treatment Upcoming Encounters Date Type Specialty Care Team Description 04/28/2022 Office Visit Family Practice Anthony Doe, [place] [address] [place], [place] [phone] (Wo rk) 05/03/2022 Office Visit Dermatology Neil Kent M D [address] [place], [place] [address] (Wo rk) 05/05/2022 Office Visit Optometry Yeny David, OD [address] [facility] [address] [place] [phone] (Wo rk) 05/11/2022 Virtual Visit Pharm D Diana Desir , [facility] [address] [place], [place] [phone] (Wo rk) 05/14/2022 Office Visit Cardiology Livan Sharif MD [address] [facility] [address] [place], [place] [phone] (Wo rk) 05/31/2022 Office Visit Family Practice Valery Veronica PA-C [address] [place] [address] (Wo rk) Scheduled Referrals Name Type Priority Associated Diagnoses [facility] Referral Routine History of seizu re Ordered: 10/02/2018 documented as of this encounter Visit Diagnoses Diagnosis KALYN (generalized anxiety disorder) - Peyton tidwell Generalized anxiety disorder Screening examination for venereal disea se Screening for HIV (human immunodeficienc y virus) Special screening examination for other specified viral diseases Psoriasis Other psoriasis History of seizure documented in this encounter Additional Health Concerns Assessment Noted Time PHQ-9 Depression Total Score: 10 10/03/2018 7:03 AM CD T documented as of this encounter Care Teams Pipe Fitter Supervisor Maintenance Relationship Specialty Start Date End Date Cinthia Amado MD PCP - General Pediatrics 05/11/18 04/24/19 A[facility] [place] [address] [place] [address] Noe Egan MD Assigned PCP 09/07/18 05/05/19 [address] [address] [address] documented as of this encounter
--- OUTSIDE RECORDS SUMMARY | 2022-04-28 01:25 | XMS_ITS | Encounter Summary ---
:2000 Author Organization [facility] Address [address] [place] [address] Care Team Providers Name Role Phone Unavailable Primary Care Provider Unavailable Encounter Details Date Type Department Care Team Description 02/01/2008 Discharge Summary [facility] Flynn Doss (Freight Manager) [facility] MD Nelly Results [facility] [address] [place] [address] (Wo rk) Social History Tobacco Use Types [...] How often do you attend religion or hoahaoism services? Never 09/22/2021 Do you [...] documented as of this encounter Progress Notes Flynn Doss - 03/18/2008 7:38 PM CDT FINAL HISTORY: Kim is a 7-year-old who has had a history of ureteroureteral reflux. She has had 3 previous hospitalizations for pyelonephritis over the recent year or two. She had VCUG back in 2005 that showed grade II reflux on one side but then apparently had a repeat VCUG her at [facility] and a renal ultrasound, both were read as normal, although mom states she had to get up off of the table to void in the middle of the VCUG. About 2 days prior to admission, she started developing a fever and it spikedto 105 the night before admission. She had been seen in urgent care the day before with normal CBC, chest x-ray, UA but the urine culture did end up growing greater than 100,000 enterococcus which was s ensitive to ampicillin. She had been getting some vomiting and back pain so she was admitted. She does not have any history of constipation. MEDICATIONS: None. ALLERGIES: None. PHYSICAL EXAM: Her physical exam (on admission) was unremarkable. HOSPITAL COURSE: She was admitted to the hospital and started on ceftazidime. When the final urine culture reports came back with greater than 100,000 enterococcus sensitive to ampicillin we also added in the ampicillin. She gradually defervesced with her last temperature being the day prior to discharge at 100.9 which was around noon. She has been afebrile for almost 24 hours. She is eating and drinking well. DISCHARGE PHYSICAL EXAM: All within normal limits. Her initial CRP was 167 and yesterday it was 76.3. It is pending today and if that has come down wewill continue with her discharge. ASSESSMENT: Pyelonephritis, resolving. DISCHARGE PLAN: We will discharge her home on amoxicillin 800 mg b.i.d. for 7 days and then after that start nitrofurantoin 75 mg once a day which would be 2 mg/kg. We will have them set up a follow up appointment with Urology. Electronically signed on 03/18/2008 19:37 by FLYNN DOSS MD MT: [id number] Name: KIM JOHNSON Account: [id number] : 2000 Admit Date: Discharge Date: 02/04/2008 Document: [id number] documented in this encounter Plan of Treatment Upcoming Encounters Date Type Specialty Care Team Description 04/28/2022 Office Visit Family Practice Anthony Doe PAUcheC [address] [place], [place] [phone] (Wo rk) 05/03/2022 Office Visit Dermatology Neil Kent M D [address] [place], [place] [phone] (Wo rk) 05/05/2022 Office Visit Optometry Yeny David, OD [address] [facility] [address] [place] [phone] (Wo rk) 05/11/2022 Virtual Visit Pharm D Diana Desir , [facility] [address] [place], [place] [phone] (Wo rk) 05/14/2022 Office Visit Cardiology Livan Sharif MD [address] [facility] [address] [place], [place] [phone] (Wo rk) 05/31/2022 Office Visit Family Practice Valery Veronica PA-C [address] [place] [address] (Wo rk) documented as of this encounter Visit Diagnoses Not on filedocumented in this encounter
--- OUTSIDE RECORDS SUMMARY | 2022-04-28 01:25 | XMS_ITS | Encounter Summary ---
:2000 Author Organization [facility] Address [address] [place] [address]. [place] [address] Care Team Providers Name Role Phone Cinthia Amado MD Primary Care Provider Noe Egan MD Unavailable Reason for Visit Reason Comments Chest Pain Encounter Details Date Type Department Care Team Description 09/29/2018 Emergency [facility] HaSha kincaid Ray, A typical chest pain [facility] Emergency Dep t [address] [facility] [id number] [address] [facility] [phone] [place], [place] [address] (Wo rk) Social History [...] How often do you attend [employer] or restoration services? Never 09/22/2021 Do you [...] Sign Reading Time Taken Comments Blood Pressure 130/85 09/29/2018 3:00 AM CDT Pulse 81 09/29/2018 3:00 AM CDT Temperature 36.7 ??C (98 ??F) 09/29/2018 12:46 AM CDT Respiratory Rate 18 09/29/2018 12:46 AM CDT Oxygen Saturation 98% 09/29/2018 3:00 AM CDT Inhaled Oxygen Concentration - - Weight - - Height - - Body Mass Index - - documented in this encounter Discharge Instructions Discharge InstructionsSha Ness MD - 09/29/2018 3:35 AM CDT Discharge Instructions Chest Pain You have [...] Sig Dispensed Refills Start Date End Date hydrOXYzine (ATARAX) 25 Take 1-2 tablets 20 tablet 0 201805/02/2019 MG tablet (25-50 mg) by mouth 3 times daily as needed for anxiety levonorgestrel (MIRENA, 1 each by 0 10/11/2017 0 12/14/2019 52 MG,) 20 MCG/24HR IUD Intrauterine route naproxen (NAPROSYN) 500 Take 500 mg by mouth 0 09/30/2020 MG tablet SERTRALINE HCL PO Take 100 mg by mouth 0 05/23/2019 daily triamcinolone (KENALOG) 0 09/12/2017 0 10/02/2018 0.1 % external cream documented as of this encounter ED Notes Corry Ennis RN - 09/29/2018 12:44 AM CDT Patient presents to ED due to L sided CP and numbness to L arm. Onset developed approx 2 hrs ago. Denies cold like symptoms C/o nausea Sha Ness MD - 09/29/2018 12:41 AM CDT History Chief Complaint: Chest Pain HPI Kim Johnson is a 18 year old female with a history of anxiety, depression, and GERD who presents to the emergency department today for evaluation of chest pain. The patient reports three days of intermittent mid to left sided chest pain, heaviness, and numbness radiating into her left arm accompanied by dizziness, nausea, and shortness of breath, all of which last for less than an hour before subsiding. She also notes pains to the back of her head and neck, though she is unsure if this is related. These things prompted her to quit juuling on 09/26 and attempt to use antacids with no relief. As her symptoms have persisted and do not align with previous symptoms of her anxiety, she presents today for evaluation and treatment. Here the patient denies any fever, cough, drug use, or history of breathing issues. Of note, the patient has not followed up with neurology after her seizure five months ago. Allergies: No Known Drug Allergies Medications: Sertraline Antacids Past Medical History: Anxiety Chronic kidney disease Depressive disorder GERD Denies history of breathing issues Past Surgical History: Genitourinary surgery Family History: Family history reviewed. No pertinent family history. Social History: The patient was accompanied to the ED by her sister in law and boyfriend. Smoking Status: Current Every Day Smoker Alcohol Use: Positive Drug Use: Negative PCP: Cinthia Amado Marital Status: Single Review of Systems Constitutional: Negative for fever. Respiratory: Positive for shortness of breath. Negative for cough. Cardiovascular: Positive for chest pain (and heaviness). Gastrointestinal: Positive for nausea. Musculoskeletal: Positive for neck pain. Left arm pain Head pain Neurological: Positive for dizziness and numbness. All other systems reviewed and are negative. Physical Exam Patient Vitals for the past 24 hrs: BP Temp Temp src Pulse Heart Rate Resp SpO2 09/29/18 0300 130/85 -- -- 81 -- -- 98 % 09/29/18 0200 120/63 -- -- 77 -- -- 99 % 09/29/18 0100 125/80 -- -- 72 -- -- 98 % 09/29/18 0046 137/83 98 ??F (36.7 ??C) Temporal -- 84 18 100 % Physical Exam Nursing note and vitals reviewed. Constitutional: Cooperative. HENT: Mouth/Throat: Moist mucous membranes. Eyes: EOMI, nonicteric sclera Cardiovascular: Normal rate, regular rhythm, no murmurs, rubs, or gallops. Left- sided pain to palpation in 2/3rd intercostal spaces. Pulmonary/Chest: Effort normal and breath sounds normal. No respiratory distress. No wheezes. No rales. Abdominal: Soft. Nontender, nondistended, no guarding or rigidity. BS present. Musculoskeletal: Normal range of motion. Neurological: Alert. Moves all extremities spontaneously. Skin: Skin is warm and dry. No rash noted. Psychiatric: Normal mood and affect. Emergency Department Course ECG: ECG taken at 0058, ECG read at 010 Sinus bradycardia with sinus arrhythmia Otherwise Normal ECG No significant change compared to EKG dated 05/11/18 Rate 57 bpm. IL interval 142 ms. QRS duration 94 ms. QT/QTc 398/387 ms. P-R-T axes 52 66 50. Imaging: Radiology findings were communicated with the patient who voiced understanding of the findings. Chest XR, PA & LAT No focal air-space disease or other acute abnormality. Normal-sized cardiac silhouette. SKINNY MELVIN MD Reading per radiology Imaging independently reviewed and agree with radiologist interpretation. Laboratory: Laboratory findings were communicated with the patient who voiced understanding of the findings. CBC: WBC 9.2, HGB 12.1, PLT 276 BMP: WNL (Creatinine 0.69) Troponin (Collected: 0123): <0.015 Emergency Department Course: 8 Nursing notes and vitals reviewed. EKG obtained as noted above. 0106 I performed an exam of the patient as documented above. 0123 IV was inserted and blood was drawn for laboratory testing, results above. 0223 The patient was sent for a chest xray while in the emergency department, results above. 0346 I personally reviewed the laboratory and imaging results with the patient and answered all related questions prior to discharge. Impression & Plan Medical Decision Making: Kim Johnson is a 18 year old female who presents with chest pain. The work up in the Emergency Department is negative. The differential diagnosis of chest pain is broad and includes life threateningetiologies such as acute coronary syndrome, myocardial infarction, pulmonary embolism, acute aortic dissection, amongst others. The patient's EKG was nonischemic and troponin was normal. The chest painsymptom complex would be atypical for coronary ischemia. The patient is low risk for PE, so I feel the risks of D-dimer/CT imaging outweighs any benefits. Chest xray reveals no evidence of pneumonia orpneumothorax. No serious etiology for the chest pain were detected today during this visit. Pain maybe musculoskeletal. Pt states that it may be due to anxiety as well. Will trial prn hydroxyzine. Close follow up with primary care is indicated should the pain continue, as further work up may be performed; this was made clear to the patient, who understands. She is in stable condition at the time of discharge, indications for return to the ED were discussed as well as follow up. All questions were answered and she is in agreement with the plan. Diagnosis: ICD-10-CM 1. Atypical chest pain R07.89 Disposition: The patient is discharged to home. Discharge Medications: START taking Dose / Directions hydrOXYzine 25 MG tablet Commonly known as: ATARAX Dose: 25-50 mg Take 1-2 tablets (25-50 mg) by mouth 3 times daily as needed for anxiety Quantity: 20 tablet Refills: 0 Where to get your medicines Some of these will need a paper prescription and others can be bought over the counter. Ask your nurse if you have questions. Bring a paper prescription for each of these medications ?? hydrOXYzine 25 MG tablet Scribe Disclosure: ITammi, am serving as a scribe at 12:59 AM on 09/29/2018 to document services personally performed by Sha Ness MD based on my observations and the provider's statements to me. [facility] EMERGENCY DEPARTMENT Sha Ness MD 10/01/18 6140 documented in this encounter Plan of Treatment Upcoming Encounters Date Type Specialty Care Team Description 04/28/2022 Office Visit Family [facility] Anthony Doe PA-C [address] [place], [place] [id number] (Wo rk) 05/03/2022 Office Visit Dermatology Neil Kent M D [address] [place] [address] (Wo rk) 05/05/2022 Office Visit Optometry Yeny David, OD [address] [facility] [address] [place], [place] [id number] (Wo rk) 05/11/2022 Virtual Visit Pharm D Diana Desir , [facility] [address] [place], [place] [phone] (Wo rk) 05/14/2022 Office Visit Cardiology Livan Sharif MD [address] [facility], [facility] [address] [place], [place] [address] (Wo rk) 05/31/2022 Office Visit Family Practice Valery Veronica PA-C [address] [place], [place] [phone] (Wo rk) documented as of this encounter Procedures Procedure Name Priority Date/Time Associated Comments Diagnosis XR CHEST 2 VIEWS STAT 09/29/2018 2:28 AM Resul ts for this CDT procedure are i n the results section. CBC WITH PLATELETS & STAT 09/29/2018 1:23 AM R esults for this DIFFERENTIAL CDT procedure are i n the results section. TROPONIN I STAT 09/29/2018 1:23 AM Results f or this CDT procedure are i n the results section. BASIC METABOLIC PANEL STAT 09/29/2018 1:23 AM Results for this CDT procedure are i n the results section. EKG 12-LEAD, TRACING STAT 09/29/2018 12:58 Res ults for this ONLY AM CDT procedure are i n the results section. documented in this encounter Results Chest XR, PA & LAT (09/29/2018 2:28 AM CDT) Anatomical Region Laterality Modality Chest Digital Radiography Specimen (Source) Anatomical Location Collection Method / Collectio n Time Received Time / Laterality Volume Impressions 09/29/2018 3:12 AM CDT IMPRESSION: No focal air-space disease or other acute abnormality. Normal-sized cardiac silhouette. SKINNY MELVIN MD Narrative 09/29/2018 3:12 AM CDT XR CHEST 2 VW ??09/29/2018 2:28 AM INDICATION: Chest pain. COMPARISON: 04/19/2007. Procedure Note Skinny Melvin MD - 09/29/2018F ormatting of this note might be different from the original. XR CHEST 2 VW 09/29/2018 2:28 AM INDICATION: Chest pain. COMPARISON: 04/19/2007. IMPRESSION: No focal air-space disease o r other acute abnormality. Normal-sized cardiac silhouette. SKINNY MELVIN MD Sha Ness MD IMG DIAGNOSTIC IMAGING ORDER GARY Troponin I (09/29/2018 1:23 AM CDT) athologist Signature Troponin I ES <0.015 0.000 - 09/29/2018 [place] 0.045 ug/L 2:04 AM [facility] Comment: The 99th percentile for upper reference range is 0.045 ug/L. ??Troponin values in the range of 0.045 - 0.120 ug/L may b e associated with risks of adverse clinical events. Specimen Anatomical Collection Method Collection Time Receive d Time (Source) Location / / Volume Laterality Blood specimen 09/29/2018 1:23 AM 019 1:30 (specimen) CDT AM CDT Sha Ness MD LAB - BLOOD ORDERABLES Performing Organization Address City/State/ZIP Code Phon e Number M [facility] [address] [place], [place] [address] [phone] [facility] [address] [phone] Basic metabolic panel (09/29/2018 1:23 AM CDT) athologist Signature Sodium 137 133 - 144 09/29/2018 [place] mmol/L 1:53 AM [facility] Potassium 3.7 3.4 - 5.3 09/29/2018 [place] mmol/L 1:53 AM [facility] Chloride 107 96 - 110 09/29/2018 [place] mmol/L 1:53 AM [facility] Carbon Dioxide 24 20 - 32 09/29/2018 [place] mmol/L 2:00 AM [facility] Anion Gap 6 3 - 14 09/29/2018 [place] mmol/L 2:00 AM [facility] Glucose 91 70 - 99 09/29/2018 [place] mg/dL 2:00 AM [facility] Urea Nitrogen 7 7 - 19 09/29/2018 [place] mg/dL 2:00 AM [facility] Creatinine 0.69 0.50 - 09/29/2018 [place] 1.00 mg/dL 2:00 AM [facility] GFR Estimate >90 >60 09/29/2018 [place] mL/min/{1. 2:00 AM [facility] 73_m2} HOSPITAL Comment: Non GFR Calc Starting 06/27/2018, serum creatinine ba sed estimated GFR (eGFR) will be calculated using the Chronic Kidney Dise [facility] Epidemiology Collaboration (CKD-EPI) equation. GFR Estimate If >90 >60 mL/min/{1.73_m2} 09/29/2018 2: 00 AM [facility] Comment: GFR Calc Starting 06/27/2018, serum creatinine ba sed estimated GFR (eGFR) will be calculated using the Chronic Kidney Dise [facility] Epidemiology Collaboration (CKD-EPI) equation. Calcium 9.1 9.1 - 10.3 mg/dL 09/29/2018 2:00 AM [facility] Specimen Anatomical Collection Method Collection Time Receive d Time (Source) Location / / Volume Laterality Blood specimen 09/29/2018 1:23 AM 019 1:30 (specimen) CDT AM CDT Sha Ness MD LAB - BLOOD ORDERABLES Performing Organization Address City/State/ZIP Code Phon e Number M [place] [address] [address] [facility] [address] [place], [place] [address] [facility] [phone] [place] [address] [place] [address], [place] [phone] HOSPITAL (ABNORMAL) CBC with platelets differential (09/29/2018 1:23 AM [facility]) [facility] Method Time Signature WBC 9.2 4.0 - 09/29/2018 [place] 11.0 1:41 AM [facility] 10e9/L [facility] RBC Count 4.62 3.8 - 5.2 09/29/2018 [facility] 10e12/L 1:41 AM [facility] Hemoglobin 12.1 11.7 - 09/29/2018 [facility] 15.7 g/dL 1:41 AM [facility] Hematocrit 38.7 35.0 - 09/29/2018 [facility] 47.0 % 1:41 AM [facility] MCV 84 78 - 100 09/29/2018 [facility] fl 1:41 AM [facility] MCH 26.2 (L) 26.5 - 09/29/2018 [facility] 33.0 pg 1:41 AM [facility] MCHC 31.3 (L) 31.5 - 09/29/2018 [facility] 36.5 g/dL 1:41 AM [facility] RDW 12.2 10.0 - 09/29/2018 [facility] 15.0 % 1:41 AM [facility] Platelet Count 276 150 - 450 09/29/2018 [facility] 10e9/L 1:41 AM [facility] Diff Method Automated 09/29/2018 [facility] Method 1:41 AM [facility] % Neutrophils 67.2 % 09/29/2018 [facility] 1:41 AM [facility] % Lymphocytes 23.5 % 09/29/2018 [facility] 1:41 AM [facility] % Monocytes 6.1 % 09/29/2018 [facility] 1:41 AM [facility] % Eosinophils 2.7 % 09/29/2018 [facility] 1:41 AM [facility] % Basophils 0.4 % 09/29/2018 [facility] 1:41 AM [facility] % Immature 0.1 % 09/29/2018 [facility] Granulocytes 1:41 AM [facility] Nucleated RBCs 0 0 /100 09/29/2018 [facility] 1:41 AM [facility] Absolute 6.2 1.6 - 8.3 09/29/2018 [place] Neutrophil 10e9/L 1:41 AM [facility] Absolute 2.2 0.8 - 5.3 09/29/2018 [place] Lymphocytes 10e9/L 1:41 AM [facility] Absolute 0.6 0.0 - 1.3 09/29/2018 [place] Monocytes 10e9/L 1:41 AM [facility] Absolute 0.3 0.0 - 0.7 09/29/2018 [place] Eosinophils 10e9/L 1:41 AM [facility] Absolute 0.0 0.0 - 0.2 09/29/2018 [place] Basophils 10e9/L 1:41 AM [facility] Abs Immature 0.0 0 - 0.4 09/29/2018 [place] Granulocytes 10e9/L 1:41 AM [facility] Absolute 0.0 09/29/2018 [place] Nucleated RBC 1:41 AM [facility] Specimen Anatomical Collection Method Collection Time Receive d Time (Source) Location / / Volume Laterality Blood specimen 09/29/2018 1:23 AM 019 1:30 (specimen) CDT AM CDT Sha Ness MD LAB - BLOOD ORDERABLES Performing Organization Address City/State/ZIP Code Phon e Number [place] [address] [address] [place] [address] [facility] [address] [phone] EKG 12 lead (09/29/2018 12:58 AM CDT) [facility] gist Method Time Signature Interpretation ECG Click View RADIOLOGY Image link RESULTS to view waveform and result Specimen (Source) Anatomical Collection Method Collection Time Re ceived Time Location / / Volume Laterality 09/29/2018 12:58 AM CDT Sha Ness MD ECG ORDERABLES Performing Organization Address City/State/ZIP Code Phon e Number RADIOLOGY RESULTS documented in this encounter Visit Diagnoses Diagnosis Atypical chest pain Other chest pain documented in this encounter Care Teams Mds Nurse Relationship Specialty Start Date End Date Cinthia Amado MD PCP - General Pediatrics 05/11/18 04/24/19 [facility] [place] [address] [place] [address] Noe Egan MD Assigned PCP 09/07/18 05/05/19 [address] [address] [place], [place] [address] documented as of this encounter
--- OUTSIDE RECORDS SUMMARY | 2022-04-28 01:25 | XMS_ITS | Encounter Summary ---
:2000 Author Organization Points Address [address] [place] [address]. [place] [address] Care Team Providers Name Role Phone Cinthia Amado MD Primary Care Provider Reason for Visit Reason Comments Seizures Encounter Details Date Type Department Care Team Description 05/11/2018 Emergency [facility] Barbara Ramos [facility] Emergency Dep riana Costa MD consciousness [address] [place] [id number] [phone] (Wo rk) Social History Tobacco Use Types [...] How often do you attend worship or sabianist services? Never 09/22/2021 Do you [...] Sign Reading Time Taken Comments Blood Pressure 112/64 05/11/2018 8:30 AM CDT Pulse - - Temperature 36.8 ??C (98.3 ??F) 05/11/2018 4:40 AM CDT Respiratory Rate 20 05/11/2018 4:40 AM CDT Oxygen Saturation 96% 05/11/2018 8:30 AM CDT Inhaled Oxygen Concentration - - Weight 90.6 kg (199 lb 11.8 oz) 05/11/2018 4:40 AM CDT Height - - Body Mass Index - - documented in this encounter Discharge Instructions Discharge InstructionsBarbara Ramos MD - 05/11/2018 6:31 AM CDT We do not know if your episode was caused by a seizure or not. It is important for you to followup with PCP. No sign of mass or heart attack. Hydrate and push fluids. Avoid stress and get regular sleep. Copies of your labs. Followup with PCP 1-2 days. AttachmentsThe following attachments cannot be sent through Care Everywhere. SYNCOPE, CAUSES OF ([place]IZ[place])ALTERED LEVEL OF CONSCIOUSNESS (LOC) ([place]IZ[place]) documented in this encounter Medications at Time of Discharge Medication Sig Dispensed Refills Start Date End Date levonorgestrel (MIRENA, 1 each by 0 10/11/2017 0 12/14/2019 52 MG,) 20 MCG/24HR IUD Intrauterine route naproxen (NAPROSYN) 500 Take 500 mg by mouth 0 09/30/2020 MG tablet SERTRALINE HCL PO Take 100 mg by mouth 0 05/23/2019 daily triamcinolone (KENALOG) 0 09/12/2017 0 10/02/2018 0.1 % external cream documented as of this encounter ED Notes Charles Tabor RN - 05/11/2018 4:58 AM CDT Pt in with C/O seizure activity, witnessed by boyfriend. Pt unclear of the situation and sx she was exhibiting, boyfriend woke her up and told her she was having a seizure. Pt does not have a hx of seizures in the past. Pt A&Ox4 on arrival acting appropriate, ABCD's intact. Seizure pads applied Iman Santoro RN - 05/11/2018 4:44 AM CDT Patient alert and oriented times 3 . Abc intact sitting in a chair with boyfriend. Hanging out. And they said I had a seizure. Girlfriend called and she brought her in Barbara Ramos MD - 05/11/2018 4:34 AM CDT Images from the original note were not included. History Chief Complaint: Seizure? HPI iKm Johnson is a 18 year old female who presents to the emergency department for evaluation of possible seizure. The patient reports she had been at home awake with her boyfriend and friends around 0300 when she had a seizure-like episode, per her boyfriend. Her boyfriend is not present at the ED, but she states he reported drooling and shaking for around 10 minutes, and the patient was unresponsive. However, the patient does not remember of this and presents with her friend. She describes soreness to the back and jaw. No headache. No recent illness. The patient denies any history of seizures. She indicates she had drinking alcohol tonight and she is a smoker. She notes she had 5-6 days of headache around 2-3 weeks ago which has since resolved. The patient denies any current headache, recent illness, cough, fever, numbness, vomiting, or diarrhea, as well as any recent injury or trauma to the head. She did not have any bladder or bowel incontinence. No vision changes. No abdominal pain. No other illicit drugs or alcohol. Patient admits to not getting much sleep today. No numbness to extremities. Allergies: NKDA Medications: Sertraline Past Medical History: Anxiety Depression CKD GERD Past Surgical History: The patient does not have any pertinent past surgical history. Family History: No past pertinent family history. Social History: Presents with friend. Current every day smoker. Positive for alcohol use. Marital Status: Single [1] Review of Systems Constitutional: Negative for fever. Respiratory: Negative for cough. Gastrointestinal: Negative for diarrhea, nausea and vomiting. Musculoskeletal: Positive for back pain. Neurological: Positive for seizures and syncope. Negative for numbness and headaches. All other systems reviewed and are negative. Patient was hanging out with her boyfriend and he said she passed out. Unclear if was a seizure. Fried of the patient brought her in for evaluation. Physical Exam Patient Vitals for the past 24 hrs: BP Temp Temp src Heart Rate Resp SpO2 Weight 05/11/18 0600 118/73 - - - - 99 % - 05/11/18 0530 122/68 - - - - 98 % - 05/11/18 0440 136/79 98.3 ??F (36.8 ??C) Oral 98 20 100 % 90.6 kg (199 lb 11.8 oz) Physical Exam Musculoskeletal: Arms: GEN: patient smiling, no distress HEAD: atraumatic, normocephalic, no cephalohematoma EYES: pupils reactive (3plus to 2plus), extraocular muscles intact, conjunctivae normal ENT: TMs flat and white bilaterally, oropharynx normal with no erythema or exudate, mucus membranes dry NECK: no posterior midline tenderness, no meningeal signs, no cervical LAD RESPIRATORY: no tachypnea, breath sounds clear to auscultation (no rales, wheezes, rhonchi), chest wall nontender, normal phonation CVS: normal S1/S2, no murmurs/rubs/gallops ABDOMEN: soft, nontender, no masses or organomegaly, no rebound, positive bowel sounds BACK: no spinal tenderness, no cervical or thoracic or lumbar spinal midline tenderness. Slight soreness to palpation on upper shoulders but no bruises or crepitance. EXTREMITIES: intact pulses x 4, full range of motion at joints, no edema MUSCULOSKELETAL: no deformities, clavicle and AC/SC joints are normal. Lifts arms over head. No bonyUE or LE tenderness. Ankles normal. Mild upper back spasm (see pictoral), but nothing in the midline. Trapezius tenderness. No scalpula or scapular spine tenderness. SKIN: warm and dry, no acute rashes NEURO: GCS 15, cranial nerves intact. Motor- moves all 4 extremities with 5/5 strength, quality control lab technician 5/5. DFand Pf 5/5. Sensation- intact upper and lower extremities Coordination- ambulatory, no ataxia. Overall symmetrical exam. Toes downgoing. Reflexes 2plus at the knee. HEME: no bruising or petechiae/contusions LYMPH: no lymphadenopathy Emergency Department Course ECG: Time: 0531 Vent. Rate 88 bpm. IA interval 152. QRS duration 92. QT/QTc 350/423. P-R-T axis 42 56 40. Normal sinus rhythm. Normal ECG. Read time: 0535 Normal axis. Imaging: Radiographic findings were communicated with the patient who voiced understanding of the findings. CT Head without contrast: Pending. As per radiology. Laboratory: CBC: WBC: 9.1, HGB: 12.6, PLT: 232 CMP: Calcium 8.9 (L), o/w WNL (Creatinine: 0.80) UA with micro: pending o/w negative HCG: negative 0521 Alcohol ethyl: <0.01 0521 Troponin I: <0.015 Interventions: 0533 NS 1L IV BOLUS Heplock Cardiac/Sp02 monitoring Emergency Department Course: Nursing notes and vitals reviewed. 0500 I performed an exam of the patient as documented above. IV inserted. Medicine administered as documented above. Blood drawn. This was sent to the lab for further testing, results above. The patient was sent for a CT Head while in the emergency department, findings above. 6:43 AM Patient updated, if CT negative will discharge home. I personally reviewed the laboratory results with the Patient and answered all related questions prior to sign out. BP 112/64 Temp 98.3 ??F (36.8 ??C) (Oral) Resp 20 Wt 90.6 kg (199 lb 11.8 oz) LMP 05/09/2018 SpO2 96% Dr Cid will observe patient. Awaiting on CT of head. Patient and family updated. UA also pending. BP 112/64 Temp 98.3 ??F (36.8 ??C) (Oral) Resp 20 Wt 90.6 kg (199 lb 11.8 oz) LMP 05/09/2018 SpO2 96% Impression & Plan Medical Decision Making: Kim Johnson is a 18 year old female who had admits that she did not get much sleep during the night and was up with her boyfriend at 0300 and had an episode where she thinks she passed out. Per the boyfriend, who was at home with her, she had a seizure. However, he has never seen a seizure, and thepatient does not remember the episode. She did not have any bowel or bladder incontinence. No post-ictal confusion. An IV was placed and labs were sent. The patient describes feeling sore in the back, and she has a normal neurological exam. An IV was placed and labs were sent, and a CT scan was ordered. Her CT of the head is pending. Ethanol is negative. CBC is normal. CMP does not show any abnormal ities. Troponin was normal. EKG was also normal. Assuming her CT scan of the head is normal, I think we can send her home to follow up with PCP. At this point, she understand that we cannot rule out that this was a seizure. It was an episode of somesort. She needs follow up with her PCP and understands the reasons to return. No driving unsupervised until followup. UA also pending at the time of check out. Diagnosis: ICD-10-CM 1. Altered level of consciousness R40.4 2. Rule out seizure Disposition: Pending. Signed out to incoming physician. Instructions to patient: We do not know if your episode was caused by a seizure or not. It is important for you to followup with PCP. No sign of mass or heart attack. Hydrate and push fluids. Avoid stress and get regular sleep. Copies of your labs. Followup with PCP 1-2 days. Bipin Denis, am serving as a scribe on 05/11/2018 at 4:37 AM to personally document services performed by Dr. Ramos found based on my observations and the provider's statements to me. Bipin Garcia 05/11/2018 [facility] EMERGENCY DEPARTMENT Barbara Ramos MD 06/01/18 1214 ERCIAL LINES ACCOUNT MANAGER Roney Cid MD - 05/11/2018 4:34 AM CDT Emergency department sign out note Patient seen on the overnight shift by Dr. Ramos for an event where she collapsed and had some visualized convulsions. Dr. Ramos was unclear if this was convulsive syncope or true seizure. Workup per Dr. Ramos was normal and Dr. Ramos feel she is safe for discharge home. One test result that was pending at the time of signout was a head CT scan to make sure there were no structural lesions. CT scan result was normal. There is no intracranial hemorrhage, edema, mass. I reevaluated the patient about 815. She was sleeping but easily aroused. She was neurologically intact she was coherent, appropriate, conversant and polite. We discussed her normal results of her CT scan. We discussed that at this point is unclear whether she had a syncopal event or a seizure. It is impossible to know at this time. I recommend close outpatient follow-up with her primary as well as with neurology. At this point with only one event that was not clearly a seizure, would hold off on antiepileptics. Patient agrees and understands. Work note provided Roney Cid MD 05/11/18 0836 documented in this encounter Plan of Treatment Upcoming Encounters Date Type Specialty Care Team Description 04/28/2022 Office Visit Family Practice Anthony Doe PA-C [address] [place], [place] [phone] (Wo aldo) 05/03/2022 Office Visit Dermatology Neil Kent M D [address] [place] [address] (Wo aldo) 05/05/2022 Office Visit Optometry Yeny David OD [address] [place] [address] (Wo rk) 05/11/2022 Virtual Visit Pharm D Diana Desir , [facility] [address] [place] [address] (Wo rk) 05/14/2022 Office Visit Cardiology Livan Sharif MD [address], [address] [place], [place] [id number] (Wo rk) 05/31/2022 Office Visit Family Practice Valery Veronica PA-C [address] [place] [place], [place] [phone] (Wo rk) documented as of this encounter Procedures Procedure Name Priority Date/Time Associated Diagnosis Comme nts CT HEAD W/O CONTRAST STAT 05/11/2018 7:58 Resu lts for this AM CDT procedure are i n the results section. ROUTINE UA WITH STAT 05/11/2018 6:46 Altered level of Resul ts for this MICROSCOPIC AM CDT consciousness procedure are in the results section. HCG QUALITATIVE Routine 05/11/2018 5:34 Altered level of Resul ts for this AM CDT consciousness procedure are in the results section. EKG 12-LEAD, TRACING STAT 05/11/2018 5:31 Resu lts for this ONLY AM CDT procedure are i n the results section. CBC WITH PLATELETS & STAT 05/11/2018 5:21 Resu lts for this DIFFERENTIAL AM CDT procedure are i n the results section. TROPONIN I STAT 05/11/2018 5:21 Results for this AM CDT procedure are i n the results section. COMPREHENSIVE STAT 05/11/2018 5:21 Results for this METABOLIC PANEL AM CDT procedure ar e in the results section. ETHYL ALCOHOL LEVEL STAT 05/11/2018 5:21 Resul ts for this AM CDT procedure are i n the results section. documented in this encounter Results CT Head w/o Contrast (05/11/2018 7:58 AM CDT) Anatomical Region Laterality Modality Head, SUBRAD CT NEURO, SUBRAD CT NEURO, UMP CT NEURO, Computed Tomography RAD CT Specimen (Source) Anatomical Location Collection Method / Collectio n Time Received Time / Laterality Volume Impressions 05/11/2018 8:17 AM CDT IMPRESSION: ??Normal CT scan of the head. JACQUES CAPUTO MD Narrative 05/11/2018 8:[address] SCAN OF THE HEAD WITHOUT CONTRAST ?? 05/11/2018 7:58 AM HISTORY: Loss of consciousness. Seizure? TECHNIQUE: ??Axial images of the head an d coronal reformations without IV contrast material. ??Radiation dose f or this scan was reduced using automated exposure control, adjustment o f the mA and/or kV according to patient size, or iterative reconstruc tion technique. COMPARISON: None. FINDINGS: ??The ventricles are normal in size, shape and configuration. The brain parenchyma and subarachnoid s paces are normal. There is no evidence of intracranial hemorrhage, mas s, acute infarct or anomaly. The visualized portions of the sinuses a nd mastoids appear normal. There is no evidence of trauma. Procedure Note Jacques Caputo MD - 05/11/2018Form atting of this note might be different from the original. CT SCAN OF THE HEAD WITHOUT CONTRAST 05/11/2018 7:58 AM HISTORY: Loss of consciousness. Seizure? TECHNIQUE: Axial images of the head and coronal reformations without IV contrast material. Radiation dose for this scan was reduced using automated exposure control, adjustment o f the mA and/or kV according to patient size, or iterative reconstruc tion technique. COMPARISON: None. FINDINGS: The ventricles are normal in s ize, shape and configuration. The brain parenchyma and subarachnoid s paces are normal. There is no evidence of intracranial hemorrhage, mas s, acute infarct or anomaly. The visualized portions of the sinuses a nd mastoids appear normal. There is no evidence of trauma. IMPRESSION: Normal CT scan of the head. JACQUES CAPUTO MD Barbara Ramos MD IMG CT ORDERABLES (ABNORMAL) UA with Microscopic (05/11/2018 6:46 AM CDT) [facility] Method Time Signature Color Urine Yellow 05/11/2018 [facility] 7:52 AM [facility] Appearance Urine Slightly 05/11/2018 [facility] Cloudy 7:52 AM [facility] Glucose Urine Negative NEG^Negat 05/11/2018 [place] [facility] mg/dL 7:52 AM [facility] Bilirubin Urine Negative NEG^Negat 05/11/2018 [place] [facility]am 7:52 AM [facility] Ketones Urine Negative NEG^Negat 05/11/2018 [place] [facility] mg/dL 7:52 AM [facility] Specific Emery 1.017 1.003 - 05/11/2018 [place] Urine 1.035 7:52 AM [facility] Blood Urine Small (A) NEG^Negat 05/11/2018 [facility] shyam 7:52 AM [facility] pH Urine 5.0 5.0 - 7.0 05/11/2018 [place] pH 7:52 AM [facility] Protein Albumin Negative NEG^Negat 05/11/2018 [place] Urine shyam mg/dL 7:52 AM [facility] Urobilinogen 0.0 0.0 - 2.0 05/11/2018 [place] mg/dL mg/dL 7:52 AM [facility] Nitrite Urine Negative NEG^Negat 05/11/2018 [place] [facility] 7:52 AM [facility] Leukocyte Negative NEG^Negat 05/11/2018 [place] Esterase Urine shyam 7:52 AM [facility] Source Midstream 05/11/2018 [place] Urine 6:46 AM [facility] WBC Urine 4 0 - 5 05/11/2018 [facility] /HPF 7:52 AM [facility] RBC Urine 2 0 - 2 05/11/2018 [facility] /HPF 7:52 AM [facility] Bacteria Urine Few (A) NEG^Negat 05/11/2018 [place] [facility] /HPF 7:52 AM [facility] Squamous 1 0 - 1 05/11/2018 [facility] Epithelial /HPF /HPF 7:52 AM [facility] Mucous Urine Present (A) NEG^Negat 05/11/2018 [place] [facility] /LPF 7:52 AM [facility] Specimen (Source) Anatomical Collection Method Collection Time Re ceived Time Location / / Volume Laterality Examination of URINE SPECIMEN 05/11/2018 6:46 05/11/20 18 6:47 midstream urine OBTAINED BY CLEAN AM T [facility] specimen CATCH PROCEDURE / (procedure) Unknown Barbara Ramos MD LAB - URINE ORDERABLES Performing Organization Address City/[facility]/ZIP Code Phon e Number M [facility] [address] [place] [address] [facility] [address] [place], [place] [address] [address], [facility] [phone] HCG qualitative (05/11/2018 5:34 AM CDT) [facility] Method Time Signature HCG Qualitative Negative NEG^Negati 05/11/2018 [place] Serum ve 6:55 AM CDT [facility] Comment: This test is for screening purposes. ??R esults should be interpreted along with the clinical picture. ??Confirmation te sting is available if warranted by ordering [id number], HCG Quantitative Pregna ncy. Specimen Anatomical Collection Method Collection Time Receive d Time (Source) Location / / Volume Laterality 05/11/2018 5:34 AM 8 6:48 CDT AM CDT Barbara Ramos MD LAB - BLOOD ORDERABLES Performing Organization Address City/[facility]/ZIP Code Phon e Number [facility] [address], [place] [address] [facility] [address] [place], [place] [address] [address], [facility] [phone] EKG 12 lead (05/11/2018 5:31 AM CDT) [facility] Method Time Signature Interpretation ECG Click View RADIOLOGY Image link RESULTS to view waveform and result Specimen (Source) Anatomical Collection Method Collection Time Re ceived Time Location / / Volume Laterality 05/11/2018 5:31 AM CDT Barbara Ramos MD ECG ORDERABLES Performing Organization Address City/[facility]/ZIP [facility] Phon e Number RADIOLOGY RESULTS Troponin I (05/11/2018 5:21 AM CDT) athologist [facility] Troponin I ES <0.015 0.000 - 05/11/2018 [place] 0.045 ug/L 5:55 AM CDT [facility] Comment: The 99th percentile for upper reference range is 0.045 ug/L. ??Troponin values in the range of 0.045 - 0.120 ug/L may b e associated with risks of adverse clinical events. Specimen Anatomical Collection Method Collection Time Receive d Time (Source) Location / / Volume Laterality Blood specimen 05/11/2018 5:21 AM 018 5:22 (specimen) CDT AM CDT Barbara Ramos MD LAB - BLOOD ORDERABLES Performing Organization Address City/State/ZIP Code Phon e Number M [place] [address], [place] [address] [facility] [address] [place], [place] [address] [phone] (ABNORMAL) Comprehensive metabolic panel (05/11/2018 5:21 AM CDT) athologist Signature Sodium 138 133 - 144 05/11/2018 [facility] mmol/L 5:55 AM T [facility] Potassium 4.1 3.4 - 5.3 05/11/2018 [facility] mmol/L 5:55 AM T [facility]OSP[facility] Comment: Specimen slightly hemolyzed, po tassium may be falsely elevated Chloride 105 96 - 110 mmol/L 05/11/2018 5:55 AM CDT [facility] Carbon Dioxide 26 20 - 32 mmol/L 05/11/2018 5:55 AM [facility] Anion Gap 7 3 - 14 mmol/L 05/11/2018 5:55 AM CDT [facility] Glucose 90 70 - 99 mg/dL 05/11/2018 5:55 AM CDT [facility] Urea Nitrogen 11 7 - 19 mg/dL 05/11/2018 5:55 AM CDT [facility] Creatinine 0.80 0.50 - 1.00 mg/dL 05/11/2018 5:55 AM CD T [facility] GFR Estimate >90 >60 mL/min/1.7m2 05/11/2018 5:55 AM C [facility] Comment: Non GFR Calc GFR Estimate If >90 >60 mL/min/1.7m2 05/11/2018 5:55 [facility]: GFR Calc Calcium 8.9 (L) 9.1 - 10.3 05/11/2018 5:55 AM [facility] mg/dL [facility] Bilirubin Total 0.3 0.2 - 1.3 mg/dL 05/11/2018 5:55 AM [facility] Albumin 4.2 3.4 - 5.0 g/dL 05/11/2018 5:55 AM [facility] Protein Total 8.0 6.8 - 8.8 g/dL 05/11/2018 5:55 AM [facility] Alkaline Phosphatase 67 40 - 150 U/L 05/11/2018 5:55 AM [facility] ALT 35 0 - 50 U/L 05/11/2018 5:55 AM [facility] AST 26 0 - 35 U/L 05/11/2018 5:55 AM [facility] Comment: Specimen is hemolyzed which can falsely elevate AST. Analysis of a non-hemolyzed specimen may result in a l ower value. Specimen Anatomical Collection Method Collection Time Receive d Time (Source) Location / / Volume Laterality Blood specimen 05/11/2018 5:21 AM 018 5:22 (specimen) CDT AM CDT Barbara Ramos MD LAB - BLOOD ORDERABLES Performing Organization Address City/[facility]/ZIP Code Phon e Number [place] [address] [phone] Alcohol ethyl (05/11/2018 5:21 AM CDT) P athologist Signature Ethanol g/dL <0.01 <0.01 g/dL 05/11/2018 [place] 5:55 AM [facility] Specimen Anatomical Collection Method Collection Time Receive d Time (Source) Location / / Volume Laterality Blood specimen 05/11/2018 5:21 AM 018 5:22 (specimen) CDT AM CDT Barbara Ramos MD LAB - BLOOD ORDERABLES Performing Organization Address City/State/ZIP Code Phon e Number M [facility] [address] [place], [place] [address] [facility] [address] [phone] CBC with platelets differential (05/11/2018 5:21 AM T) [facility] Method Time Signature WBC 9.1 4.0 - 05/11/2018 [facility] 11.0 5:32 AM [facility] 10e9/L [facility] RBC Count 4.74 3.8 - 5.2 05/11/2018 [facility] 10e12/L 5:32 AM [facility] Hemoglobin 12.6 11.7 - 05/11/2018 [facility] 15.7 g/dL 5:32 AM [facility] Hematocrit 39.1 35.0 - 05/11/2018 [facility] 47.0 % 5:32 AM [facility] MCV 83 78 - 100 05/11/2018 [facility] fl 5:32 AM [facility] MCH 26.6 26.5 - 05/11/2018 [facility] 33.0 pg 5:32 AM [facility] MCHC 32.2 31.5 - 05/11/2018 [facility] 36.5 g/dL 5:32 AM [facility] RDW 12.2 10.0 - 05/11/2018 [facility] 15.0 % 5:32 AM [facility] Platelet Count 232 150 - 450 05/11/2018 [facility] 10e9/L 5:32 AM [facility] Diff Method Automated 05/11/2018 [facility] Method 5:32 AM [facility] % Neutrophils 70.5 % 05/11/2018 [facility] 5:32 AM [facility] % Lymphocytes 20.0 % 05/11/2018 [facility] 5:32 AM [facility] % Monocytes 5.8 % 05/11/2018 [facility] 5:32 AM [facility] % Eosinophils 2.7 % 05/11/2018 [facility] 5:32 AM [facility] % Basophils 0.5 % 05/11/2018 [facility] 5:32 AM [facility] % Immature 0.5 % 05/11/2018 [facility] Granulocytes 5:32 AM [facility] Nucleated RBCs 0 0 /100 05/11/2018 [place] 5:32 AM [facility] Absolute 6.4 1.6 - 8.3 05/11/2018 [place] Neutrophil 10e9/L 5:32 AM [facility] Absolute 1.8 0.8 - 5.3 05/11/2018 [place] Lymphocytes 10e9/L 5:32 AM [facility] Absolute 0.5 0.0 - 1.3 05/11/2018 [place] Monocytes 10e9/L 5:32 AM [facility] Absolute 0.3 0.0 - 0.7 05/11/2018 [place] Eosinophils 10e9/L 5:32 AM [facility] Absolute 0.1 0.0 - 0.2 05/11/2018 [place] Basophils 10e9/L 5:32 AM [facility] Abs Immature 0.1 0 - 0.4 05/11/2018 [place] Granulocytes 10e9/L 5:32 AM [facility] Absolute 0.0 05/11/2018 [place] Nucleated RBC 5:32 AM [facility] Specimen Anatomical Collection Method Collection Time Receive d Time (Source) Location / / Volume Laterality Blood specimen 05/11/2018 5:21 AM 018 5:22 (specimen) CDT AM CDT Barbara Ramos MD LAB - BLOOD ORDERABLES Performing Organization Address City/State/ZIP Code Phon e Number [place] [address] [place] [address] [address] [address] [phone] documented in this encounter Visit Diagnoses Diagnosis Altered level of consciousness Other alteration of consciousness documented in this encounter Administered Medications Inactive Administered Medications - up to 3 most recent administrations Medication Order MAR Action Action Date Dose Rate Site 0.9% sodium chloride BOLUS New Bag 05/11/2018 5:33 AM CDT 1,000 mLs Intravenous, 1,000 mL, ONCE, On Noa 05/11/18 at 0506, For 1 dose documented in this encounter Active and Recently Administered Medications Times are shown in CDT. Scheduled Medication Order 05/09/2018 05/10/2018 05/11/2018 0.9% sodium chloride BOLUS (COMPLETED) [id number] (New Bag - Provider: Charles Tabor V, RN)0881 (Stopped - Provider: Reta Price, VJ) Intravenous, 1,000 mL, ONCE, On Noa 05/11/18 at 0506, For 1 dose documented in this encounter Care Teams Neuroscientist Relationship Specialty Start Date End Date Cinthia Amado MD PCP - General Pediatrics 05/11/18 04/24/19 AYSHA [place] [address] [place], [place] [id number] documented as of this encounter
--- OUTSIDE RECORDS SUMMARY | 2022-04-28 01:25 | XMS_ITS | Encounter Summary ---
:2000 Author Organization [facility] Address [address] [place] [address] Care Team Providers Name Role Phone Unavailable Primary Care Provider Unavailable Encounter Details Date Type Department Care Team Description 04/25/2007 Historic Notes INTERFACED REPORT Interface, Transcript onMD [...] How often do you attend taoist or confucianism services? Never 09/22/2021 Do you [...] as of this encounter Progress Notes Interface, Cyber Intelligence Analyst - 09/28/2010 8:44 AM CDT Continuing to follow pt during stay. Worked on learning how to swallow pills with small nerd candies and mini m & m's because pt has a hard time taking liquid medicine. Pt. complied with pill swallowing teaching however states she was only able to swallow the practice candy a couple of times. Encouraged pt to keep practicing and offered suggestions to make it easier. Continuing to provided activities during stay and have interacted daily with patient and/or had volunteer playing with patient while family is unable to be here. Will continue to support as needed. [Signature] Author:Cristina Khalil ([facility]) [Signed 25-Apr-2007 10:45] documented in this encounter Plan of Treatment Upcoming Encounters Date Type Specialty Care Team Description 04/28/2022 Office Visit Family Practice Anthony Doe, PABaldo [address] [place], [place] [phone] (Wo rk) 05/03/2022 Office Visit Dermatology Neil Kent M D [address] [place], [place] [address]355 (Wo rk) 05/05/2022 Office Visit Optometry Yeny David, OD [address] [place] [phone] (Wo rk) 05/11/2022 Virtual Visit Pharm D Diana Desir , [facility] [address] [place], [place] [phone] (Wo rk) 05/14/2022 Office Visit Cardiology Livan Sharif MD [address] [facility] , [facility] [address] [place] [phone] (Wo rk) 05/31/2022 Office Visit Family Practice Valery Veronica PABaldo [address] [place], [place] [phone] (Wo rk) documented as of this encounter Visit Diagnoses Not on filedocumented in this encounter
--- OUTSIDE RECORDS SUMMARY | 2022-04-28 01:25 | XMS_ITS | Encounter Summary ---
:2000 Author Organization [facility] Address [address] [place] [address] Care Team Providers Name Role Phone Unavailable Primary Care Provider Unavailable Reason for Visit Reason Comments Flu Shot H1N1 Encounter Details Date Type Department Care Team Description 06/06/2009 Allied Health/Nurse Health [facility] Flu Shot (H1N1) Visit [address] [address] Social History Tobacco Use Types Packs/Day [...] How often do you attend anglican or cheondoism services? Never 09/22/2021 Do you [...] PM CDT documented as of this encounter Nursing Notes 06/06/2009 4:00 PM CST >> DONTE Malcolm Jun 06, 2009 4:00 PM FLU VACCINE PROCEDURE DOCUMENTATION Injectable Influenza Immunization Documentation Form 1. Has the patient received the information for the influenza vaccine? YES 2. Does the patient have any of the following contraindications? Allergy to eggs? No Allergic reaction to previous influenza vaccines? No Any other problems to previous influenza vaccines? No Paralyzed by Guillain-Dupont syndrome? No Currently ? NO Current moderate or severe illness? No Allergy to contact lens solution? No 3. The vaccine has been administered in the usual fashion and the patient was instructed to wait 20 minutes before leaving the building in the event of an allergic reaction: YES Vaccination given by Gloria Foley CMA documented in this encounter Plan of Treatment Upcoming Encounters Date Type Specialty Care Team Description 04/28/2022 Office Visit Family Practice Anthony Doe PA-C [address] [place], [place] [phone] (Wo rk) 05/03/2022 Office Visit Dermatology Neil Kent M D [address] [place], [place] [phone] (Wo rk) 05/05/2022 Office Visit Optometry Yeny David, OD [address] [facility] [address] [place] [phone] (Wo rk) 05/11/2022 Virtual Visit Pharm Diana [place] , [facility] [address] [place], [place] [phone] (Wo rk) 05/14/2022 Office Visit Cardiology Livan Sharif MD [address], [facility] [address] [place] [address] (Wo rk) 05/31/2022 Office Visit Family Practice Valery Veronica PA-C 909 [place] [address] (Wo rk) documented as of this encounter Visit Diagnoses Diagnosis Need for prophylactic vaccination and in oculation against influenza - Primary documented in this encounter
--- OUTSIDE RECORDS SUMMARY | 2022-04-28 01:25 | XMS_ITS | Encounter Summary ---
:2000 Author Organization [facility] Address [address] [place] [address] Care Team Providers Name Role Phone Unavailable Primary Care Provider Unavailable Encounter Details Date Type Department Care Team Description 02/04/2008 Historic Notes INTERFACED REPORT Interface, Transcript onMD [...] How often do you attend latter-day or baptism services? Never 09/22/2021 Do you [...] as of this encounter Progress Notes Interface, Manager Biologics - 09/27/2010 6:54 PM CDT Patient Status - Physical status Stable (s/s of potential complications absent or manageable) Discharge Planning - [facility]charge From: [facility] - Patient Care Unit: Pediatrics - PCU - Discharge To: Home/Alternative home - Phone number after [phone] discharge: - Method of discharge: Ambulatory - Transportation: Private Discharge Information - Discharge information Prescriptions given - Accompanied by Parent Special Care Needs and Instructions - Diet Instructions: Normal diet, encourage plenty of fluids - Activity Normal activity for child Instructions: - Report temp if 101 degrees F greater than: - Symptoms/Problems to Fever, recurrence of lower back or abdominal look for at home- pain, any burning, frequency or urgency with call the physician urination about: - Who patient should [facility] call: - Phone number of [facility] [phone] patient should call: Follow Up Care - Physician/clinician [facility] name: - - When to see call for appointment if symptoms recurs physician/clinician: - Physician/clinician [facility], Pediatric name: Urologist - - When to see Call to make appointment for evaluation physician/clinician: GISELLE Ordonez)[Signed 10:17] Authored: Patient Status, Discharge Planning, Discharge Information, Special Care Needs and Instructions, Follow Up Care documented in this encounter Plan of Treatment Upcoming Encounters Date Type Specialty Care Team Description 04/28/2022 Office Visit Family Practice Anthony Doe PA-C [address] [place] [address] (Jefferson carlson) 05/03/2022 Office Visit Dermatology Neil Kent M D [address] [place] [address] (Wo rk) 05/05/2022 Office Visit Optometry Yeny David, OD [address] [facility] [place] [address] (Wo rk) 05/11/2022 Virtual Visit Pharm D Diana Desir , [facility] [address] [place] [address] (Wo rk) 05/14/2022 Office Visit Cardiology Livan Sharif MD [address], [place] [address] [place] [address]235 (Wo rk) 05/31/2022 Office Visit Family Practice Valery Veronica , PAUcheC [address] [place] [address] (Wo rk) documented as of this encounter Visit Diagnoses Not on filedocumented in this encounter
--- OUTSIDE RECORDS SUMMARY | 2022-04-28 01:25 | XMS_ITS | Encounter Summary ---
:2000 Author Organization [facility] Address [address] [place] [address] Care Team Providers Name Role Phone Cinthia Amado MD Primary Care Provider Noe Egan MD Unavailable Encounter Details Date Type Department Care Team Description 10/02/2018 Travel Social History Tobacco Use Types Packs/Day [...] How often do you attend jainism or restoration services? Never 09/22/2021 Do you [...] Office Visit Family Practice Anthony Doe, PAUcheC [address] [place], [place] [phone] (Wo rk) 05/03/2022 Office Visit Dermatology Neil Kent M D [address] [place] [address] (Wo rk) 05/05/2022 Office Visit Optometry Yeny David, OD [address] [facility] [address] [place], [place] [phone] (Wo rk) 05/11/2022 Virtual Visit Pharm D Diana Desir , [facility] [address] [place] [address] (Wo rk) 05/14/2022 Office Visit Cardiology Livan Sharif MD [address] [facility] [address] [place], [place] [address] (Wo rk) 05/31/2022 Office Visit Family Practice Valery Veronica PAUcheC [address] [place], [place] [address] (Wo rk) documented as of this encounter Visit Diagnoses Not on filedocumented in this encounter Additional Health Concerns Assessment Noted Time PHQ-9 Depression Total Score: 10 10/03/2018 7:03 AM CD T documented as of this encounter Care Teams Director Smb Sales Relationship Specialty Start Date End Date Cinthia Amado MD PCP - General Pediatrics 05/11/18 04/24/19 AYSHA [place] [address] [place] [address] Noe Egan MD Assigned PCP 09/07/18 05/05/19 [address] [address] [place] [address] documented as of this encounter
--- OUTSIDE RECORDS SUMMARY | 2022-04-28 01:25 | XMS_ITS | Encounter Summary ---
:2000 Author Organization [facility] Address [address] [place] [address] Care Team Providers Name Role Phone Cinthia Amado MD Primary Care Provider Noe Egan MD Unavailable Encounter Details Date Type Department Care Team Description 09/27/2018 Travel Social History Tobacco Use Types Packs/Day [...] How often do you attend congregation or catholic services? Never 09/22/2021 Do you [...] Office Visit Family Practice Anthony Doe PAUcheC [address] [place], [place] [phone] (Wo rk) 05/03/2022 Office Visit Dermatology Neil Kent M D [address] [place], [place] 923915 (Wo rk) 05/05/2022 Office Visit Optometry Yeny David, OD [address] [facility] [address] [place], [place] [phone] (Wo rk) 05/11/2022 Virtual Visit Pharm D Diana Desir , [facility] [address] [place], [place] [phone] (Wo rk) 05/14/2022 Office Visit Cardiology Livan Sharif MD [address] [facility] [place] , [facility] [address] [place], [place] [phone] (Wo rk) 05/31/2022 Office Visit Family Practice Valery Veronica PABaldo [address] [place], [place] [address] (Wo rk) documented as of this encounter Visit Diagnoses Not on filedocumented in this encounter Care Teams Casualty Claims Supervisor Relationship Specialty Start Date End Date Cinthia Amado MD PCP - General Pediatrics 05/11/18 04/24/19 AYSHA [place] [address] [place] [phone] Noe Egan MD Assigned PCP 09/07/18 05/05/19 [address] [place] [address] documented as of this encounter
--- OUTSIDE RECORDS SUMMARY | 2022-04-28 01:25 | XMS_ITS | Encounter Summary ---
:2000 Author Organization [facility] Address [address] [place] [address] Care Team Providers Name Role Phone Cinthia Amado MD Primary Care Provider Noe Egan MD Unavailable Encounter Details Date Type Department Care Team Description 03/12/2019 Travel Social History Tobacco Use Types Packs/Day [...] How often do you attend pentecostalism or baptist services? Never 09/22/2021 Do you [...] Office Visit Family Practice Anthony Doe, PAUcheC [address] [place], [place] [phone] (Wo rk) 05/03/2022 Office Visit Dermatology Neil Kent M D [address] [place] [address] (Wo rk) 05/05/2022 Office Visit Optometry Yeny David, OD [address] [facility] [address] [place], [place] [phone] (Wo rk) 05/11/2022 Virtual Visit Pharm D Diana Desir , [facility] [address] [place] [address] (Wo rk) 05/14/2022 Office Visit Cardiology Livan Sharif MD [address] [facility] [address] [place], [place] [address] (Wo rk) 05/31/2022 Office Visit Family Practice Valery Veronica PAUcheC [address] [place], [place] [address]85 (Wo rk) documented as of this encounter Visit Diagnoses Not on filedocumented in this encounter Additional Health Concerns Assessment Noted Time PHQ-9 Depression Total Score: 10 10/03/2018 7:03 AM CD T documented as of this encounter Care Teams Hyperion Administrator Relationship Specialty Start Date End Date Cinthia Amado MD PCP - General Pediatrics 05/11/18 04/24/19 AYSHA [place] [address] [place] [address] Noe Egan MD Assigned PCP 09/07/18 05/05/19 [address] [place] [address] documented as of this encounter
--- OUTSIDE RECORDS SUMMARY | 2022-04-28 01:25 | XMS_ITS | Encounter Summary ---
:2000 Author Organization [facility] Address [address] [place] [address] Care Team Providers Name Role Phone Unavailable Primary Care Provider Unavailable Encounter Details Date Type Department Care Team Description [facility] MD EMERGENCY PHYSIC CAIO ALCALA [address] [place], [place] [phone] (Wo rk) Social History [...] How often do you attend mandaeism or synagogue services? Never 09/22/2021 Do you [...] documented as of this encounter Progress Notes Tyshawn [place] - 02/05/2008 4:40 PM CDT FINAL CHIEF COMPLAINT: A kidney infection. HISTORY OF PRESENT ILLNESS: The patient is a 7-year-old female who presents to the emergency department with her mother. She states that she has a history of kidney infections and has had previous hospitalizations from a week to 10 days over the last couple of years for kidney infections. She states that she wants to treat this one aggressively. She states that her daughter has had some nausea, vomiting and intermittent back and abdominal pain, fever started Tuesday evening. They were evaluated andwere told today that her urine culture was growing antibiotic and to come into the hospital for evaluation. The fever has persisted and her mother states her symptoms are similar to previous kidney infe ctions. PAST MEDICAL HISTORY: Positive for pyelonephritis. MEDICATIONS: She is on no medications. ALLERGIES: She has an allergy to Bactrim. SOCIAL HISTORY: She is here with her mother. FAMILY HISTORY: Noncontributory. REVIEW OF SYSTEMS: As noted in the HPI. All other systems are negative. PHYSICAL EXAMINATION: GENERAL: The patient is alert and appropriate. VITAL SIGNS: Temperature 101.9, pulse 158, respiratory rate 24 and oxygen saturation 99% on room air. HEENT: Head exam normal. Eyes normal. Throat, oropharynx is clear. Mucous membranes are moist. NECK: Normal. LUNGS: Clear to auscultation bilaterally. CARDIAC: Regular rate and rhythm. No murmurs, gallops or rubs. ABDOMEN: Normoactive bowel sounds, nontender, nondistended, soft and no masses. EXTREMITIES: Normal. SKIN: Warm and dry, no rash. BACK: No CVA tenderness. LABORATORY AND DIAGNOSTICS: CBC was obtained. White count 12.1, 79% neutrophils, 12% lymphocytes, H&H and platelets were normal, BMP was within normal limits. Urinalysis was positive for ketones, protein, trace leukocyte esterase, 10 white cells, 3 red cells and few bacteria. Urine culture was ord ered and was pending. EMERGENCY DEPARTMENT COURSE: I reviewed her workup from the previous day. There was growth of greater than 100,000 units of alpha hemolytic streptococci, with the past medical history along with the nausea, vomiting and findings of a urinary tract infection I felt it garcía to admit her to the hospital. She had been on ceftazidime and vancomycin on her previous visit in 2006. She was given an IV with 1 gram of cefotaxime IV. She was given 800 cc bolus of normal saline and was doing well. I discussed the case with Dr. Guzman who agreed to admit the patient to a pediatric bed for antibiotics, IV fluids. She was discharged from the emergency department in stable condition. DIAGNOSIS: Pyelonephritis. Electronically signed on 02/05/2008 16:39 by TYSHAWN JARRETT MD MT: JUANIS#[id number] Name: KIM JOHNSON Account: [id number] : 2000 Visit Date: 02/01/2008 Document: [id number] documented in this encounter Plan of Treatment Upcoming Encounters Date Type Specialty Care Team Description 04/28/2022 Office Visit Family Practice Anthony Doe, ROVERTO [address] [place], [place] [phone] (Jefferson carlson) 05/03/2022 Office Visit Dermatology Neil Kent M D [address] [place], [place] [phone] (Jefferson carlson) 05/05/2022 Office Visit Optometry Yeny David, OD [address] [facility] [place] [phone] (Jeffersno carlson) 05/11/2022 Virtual Visit Pharm D Diana Desir , [facility] [address] [place], [place] [phone] (Wo rk) 05/14/2022 Office Visit Cardiology Livan Sharif MD [address] [place] [address] (Wo rk) 05/31/2022 Office Visit Family Practice Valery Veronica PA-C [address]09 [place] [address] (Wo rk) documented as of this encounter Visit Diagnoses Not on filedocumented in this encounter
--- OUTSIDE RECORDS SUMMARY | 2022-04-28 01:26 | XMS_ITS | Encounter Summary ---
:2000 Author Organization [facility] Address [address] [place] [address] Care Team Providers Name Role Phone Unavailable Primary Care Provider Unavailable Encounter Details Date Type Department Care Team Description 04/22/2007 Historic Notes INTERFACED REPORT Interface, Transcript onMD [...] How often do you attend methodist or denominational services? Never 09/22/2021 Do you [...] as of this encounter Progress Notes Interface, Bacteriologist Soil - 09/28/2010 8:48 AM CDT Pt is currently on Vancomycin 450mg iv q6h. SCr = 0.47. WBC = 6.4. First level today drawn while Vancomycin was infusing or shortly after. Level came back at 40.1 (level drawn at 08:05am, dose started at 07:09am per FCIS/MAR). Rechecked level before 1300 dose. Vancomycin trough at 12:45 = 10.1.Goal trough 9-10 per MD request. Will continue current dose. Pharmacy to continue following daily. [Signature] Author:Shannan Franz ([facility]) [Signed 22-Apr-2007 15:03] documented in this encounter Plan of Treatment Upcoming Encounters Date Type Specialty Care Team Description 04/28/2022 Office Visit Family Practice Anthony Doe, ROVERTO [address] [place], [place] [phone] (Wo rk) 05/03/2022 Office Visit Dermatology Neil Kent M D [address] [place], [place] 584405 (Wo rk) 05/05/2022 Office Visit Optometry Yeny David, OD [address] [facility] [address] [place] [phone] (Wo rk) 05/11/2022 Virtual Visit Pharm D Diana Desir , [facility] [address] [place], [place] [phone] (Wo rk) 05/14/2022 Office Visit Cardiology Livan Sharif MD [address] [facility] , [facility] [address] [place] [phone] (Wo rk) 05/31/2022 Office Visit Family Practice Valery Veronica PABaldo [address] [place], [place] [phone] (Wo rk) documented as of this encounter Visit Diagnoses Not on filedocumented in this encounter
--- OUTSIDE RECORDS SUMMARY | 2022-04-28 01:26 | XMS_ITS | Encounter Summary ---
:2000 Author Organization [facility] Address [address] [place] [address] Care Team Providers Name Role Phone Unavailable Primary Care Provider Unavailable Encounter Details Date Type Department Care Team Description 04/21/2007 Historic Notes INTERFACED REPORT Interface, Transcript onMD [...] How often do you attend advent or samaritan services? Never 09/22/2021 Do you [...] as of this encounter Progress Notes Interface, Mission Commander - 09/28/2010 8:51 AM CDT MD changed dose of Vancomycin yesterday to 450 mg q6. (from 500 mg q6h) Goal trough about 9-10. Patient has responded well to current therapy, MD doesn't believe at this time levels need to be higher than that. If spikes temps or otherwise clinically worsens pharmacy to increase dose with goal of troughs around 15. Cultures here continue to show no growth but did have cultures at clinic earlier. Questioning results so will treat as if positive cultures. Patient has had similar episode to this about one year ago. MD talked with Peds ID and plan is to continue IV antibiotics until next Tuesday. Will check level 10-13 at 0600. Today's creatinine 0.51 giving estimated clearance of 140. Temps so far today less than 100. Will continue to follow. [Signature] Author:Jana Siegel (Pharmacist) [Signed 21-Apr-2007 12:25] documented in this encounter Plan of Treatment Upcoming Encounters Date Type Specialty Care Team Description 04/28/2022 Office Visit Family Practice Anthony Doe, ROVERTO [address] [place], [place] [phone] (Wo rk) 05/03/2022 Office Visit Dermatology Neil Kent M D [address] [place], [place] [phone] (Wo rk) 05/05/2022 Office Visit Optometry Yeny David, OD [address] [facility] [place] [address] (Wo rk) 05/11/2022 Virtual Visit Pharm D Diana Desir , [facility] [address] [place], [place] [address] (Jefferson carlson) 05/14/2022 Office Visit Cardiology Livan Sharif MD [address] [place], [place] [address] (Wo rk) 05/31/2022 Office Visit Family Practice Valery Veronica PA-C 909 [place] [address] (Wo rk) documented as of this encounter Visit Diagnoses Not on filedocumented in this encounter
--- OUTSIDE RECORDS SUMMARY | 2022-04-28 01:26 | XMS_ITS | Encounter Summary ---
:2000 Author Organization [facility] Address [address] [place] [address]. [place] [address] Care Team Providers Name Role Phone Unavailable Primary Care Provider Unavailable Encounter Details Date Type Department Care Team Description 04/18/2007 Historic Notes INTERFACED REPORT Interface, Transcript onMD [...] How often do you attend caodaism or muslim services? Never 09/22/2021 Do you [...] as of this encounter Progress Notes Interface, Grill Attendant - 09/28/2010 8:58 AM CDT Introduced self to pt. and family. Pt has been here before and is familiar with child life services. Provided pt. with diversional activities. Pt appears to be coping well at this time, smiling and interacting appropriately. Will continue to follow and support as needed. [Signature] Author:Cristina Khalil ([facility]) [Signed 18-Apr-2007 09:44] documented in this encounter Plan of Treatment Upcoming Encounters Date Type Specialty Care Team Description 04/28/2022 Office Visit Family Practice Anthony Doe, PAUcheC [address] [place], [place] [phone] (Wo rk) 05/03/2022 Office Visit Dermatology Neil Kent M D [address] [place], [place] [address] (Wo rk) 05/05/2022 Office Visit Optometry Yeny David, OD [address] [facility] [address] [place] [phone] (Wo rk) 05/11/2022 Virtual Visit Pharm D Diana Desir , [facility] [address] [place], [place] [address] (Wo rk) 05/14/2022 Office Visit Cardiology Livan Sharif MD [address] [facility] [address] [place], [place] [address] (Wo rk) 05/31/2022 Office Visit Family Practice Valery Veronica , PAUcheC [address] [place], [place] [phone] (Wo rk) documented as of this encounter Visit Diagnoses Not on filedocumented in this encounter
--- OUTSIDE RECORDS SUMMARY | 2022-04-28 01:26 | XMS_ITS | Encounter Summary ---
:2000 Author Organization [place] Address [address] [place] [address]. [place] [address] Care Team Providers Name Role Phone Unavailable Primary Care Provider Unavailable Encounter Details Date Type Department Care Team Description 04/19/2007 Results Only [facility] Skye Posadas, Hospital [place] [address] [place], [place] [phone] (Wo rk) Social History [...] How often do you attend buddhism or episcopal services? Never 09/22/2021 Do you [...] Description 04/28/2022 Office Visit Family [facility] Anthony Doe, PAUcheC [address] [place], [place] [phone] (Wo rk) 05/03/2022 Office Visit Dermatology Neil Kent M D [address] [place] [phone] (Wo rk) 05/05/2022 Office Visit Optometry Yeny David, OD [address] [place], [place] [phone] (Wo rk) 05/11/2022 Virtual Visit Pharm D Diana Desir , [facility] [address] [place] [address] (Wo rk) 05/14/2022 Office Visit Cardiology Livan Sharif MD [address] [facility], [facility] [address] [place], [place] [phone] (Wo rk) 05/31/[address] [facility] Valery Veronica PABaldo [address] [place] [address] (Wo rk) documented as of this encounter Procedures Procedure Name Priority Date/Time Associated Diagnosis Comme nts CHEST TWO VIEWS, Routine 04/19/2007 9:36 AM Re sults for this FRONT/LAT CDT procedure are i n the results section. HC US Routine 04/19/2007 9:22 AM Results f or this RETROPERITONEAL, CDT procedure a re in COMPLETE the results section. documented in this encounter Results CHEST X-RAY 2 VW (04/19/2007 9:36 AM CDT) Anatomical Region Laterality Modality Other Specimen (Source) Anatomical Collection Method Collection Time Re ceived Time Location / / Volume Laterality 04/19/2007 9:36 AM CDT Impressions 04/19/2007 11:05 AM CDT EXAM: ??CHEST TWO VIEW* HISTORY: ??pyelonephritis, ??Fever, FINDINGS: Negative. Skye Posadas MD GENERAL IMAGING SONO RETROPERITONEAL (04/19/2007 9:22 AM CDT) Anatomical Region Laterality Modality Other Specimen (Source) Anatomical Collection Method Collection Time Re ceived Time Location / / Volume Laterality 04/19/2007 9:22 AM CDT Impressions 04/19/2007 9:35 AM CDT EXAM: ??US RETROPERITONEAL COMP HISTORY: ??pyelonephritis, ??get renal u s right away in am. FINDINGS: Right kidney: Negative. No stones, bartolo s or hydronephrosis. Left Kidney: Negative. No stones, masses or hydronephrosis. Urinary bladder: Negative. Skye Posadas MD SPECIAL IMAGING STUDIES documented in this encounter Visit Diagnoses Not on filedocumented in this encounter
--- OUTSIDE RECORDS SUMMARY | 2022-04-28 01:26 | XMS_ITS | Encounter Summary ---
:2000 Author Organization [place] Address [address] [place] [address] Care Team Providers Name Role Phone Unavailable Primary Care Provider Unavailable Encounter Details Date Type Department Care Team Description 04/17/2007 Emergency room Tadeo Bean M D EMERGENCY PHYSIC [facility] [place] [address] [place], [place] [phone] (Wo rk) Social History [...] How often do you attend jainism or roman catholic services? Never 09/22/2021 Do [...] documented as of this encounter Progress Notes Tadeo Bean - 04/25/2007 7:17 AM CDT FINAL CHIEF COMPLAINT: Fever. HISTORY OF PRESENT ILLNESS: This is a 6-year-old white female with a history of kidney reflux and multiple episodes of pyelonephritis who was brought in by mom for evaluation. The patient was diagnosed in the clinic 2 days ago with a bladder infection. At that time she had a fever and also vomiting and left-sided pain. Her fever and all her symptoms persisted so yesterday mom brought her in here forevaluation. At that time, urine was taken and she was continued on the Bactrim which she was discharged from the clinic on. She was also given ODT Zofran tablets to take home for nausea. Mom states that she did well here and did not require anything other than when she got home. Her fever came back and she had more vomiting and was unable to take any p.o. at all. She said that they tried Zofran tablet 30 minutes before they gave her antibiotics. She threw up the antibiotics and they tried feeding her some soup afterwards and try to mixed the antibiotic with that and she was unable to take any of those. Everything came up. They gave her Motrin to try to break down her fever and that came up as well. This morning they tried to do the same thing again with Zofran and antibiotics and Motrin and Tylenol and nothing stayed down. She called clinic. She was told by Dr. Velásquez to bring her in for evaluation and mom was told that she should probably be admitted. There is no one else sick at home. She no longer has belly pain. The patient does tell me right now she does not feel like eating anything. She denies any dysuria. REVIEW OF SYSTEMS: Please see above, otherwise negative. ALLERGIES: None. MEDICATIONS: Zofran, Bactrim, Tylenol, and Motrin. PAST MEDICAL HISTORY: Kidney reflux, a few episodes of pyelonephritis. SURGICAL HISTORY: None. SOCIAL HISTORY: She attends daycare and school. No smoking in the house. IMMUNIZATION: Vaccinations up-to-date. PHYSICAL EXAMINATION: VITAL SIGNS: Blood pressure 105/58, pulse 142, respiratory, temperature 103.3. SKIN: Warm but no rashes are seen. HEENT: Normal. NECK: Soft and supple, no lymphadenopathy. LUNGS: Clear bilaterally. HEART: Tachycardic but no murmurs, rubs or gallops. ABDOMEN: Soft, nontender, nondistended with good bowel sounds. No CVAT. EXTREMITIES: Good pulses. Warm and well perfused. LABORATORY AND DIAGNOSTIC EVALUATIONS: Urinalysis from a 04/16/2007 was reviewed. Urine culture wasnegative. There were small blood, small leukocyte esterase, 46, 18 RBCs. CBC is normal. Electrolyteswere normal. ESR was elevated at 30, CRP is 173.9. EMERGENCY DEPARTMENT EVALUATION: The patient had 1 large emesis at triage that was witnessed by thenurse. She was brought back immediately due to that and multiple episodes of emesis at home. IV was started. She was given a bolus of fluid of normal saline. She was also given 1 IV dose of Zofran after which she kept down 1 box of apple juice without any vomiting. She seemed to be doing well. We tried to give her some chicken noodle soup. She refused to take that and felt that it makes her stomach feel sick. Mom was very reluctant to take her home again. She says this is what happened last time shehad pyelonephritis. She kept not doing well at home and they had to bring her back several times before she was admitted. She says she was admitted 6 days last year. We did give her Tylenol suppositoryat triage and her temperature came down with that, however, it came back up and we had to give her adose of Motrin orally. Cefotaxime was also given at 50 mg per kilos dose since Rocephin is not limited via the IV route. Mom wanted the patient admitted at least for observation status to make sure shedoes okay overnight. I talked to Dr. Monique and she did agree to admit this patient. The patient was admitted to the pediatric unit for observation overnight for pyelonephritis. EMERGENCY DEPARTMENT DIAGNOSIS: Pyelonephritis. Electronically signed on 04/25/2007 07:16 by TADEO BEAN MD MT: [id number] Name: KIM JOHNSON MRN: [id number] Account: [id number] : 2000 Visit Date: 04/17/2007 Document: [id number] documented in this encounter Plan of Treatment Upcoming Encounters Date Type Specialty Care Team Description 04/28/2022 Office Visit Family Practice Anthony Doe, PAUcheC [address] [place], [place] [phone] (Wo rk) 05/03/2022 Office Visit Dermatology Neil Kent M D [address] [place], [place] [phone] (Wo rk) 05/05/2022 Office Visit Optometry Yeny David, OD [address] [facility] [address] [place], [place] [phone] (Wo rk) 05/11/2022 Virtual Visit Pharm D Diana Desir , [facility] [address] [place], [place] [phone] (Wo rk) 05/14/2022 Office Visit Cardiology Livan Sharif MD [address] [facility], [facility] [address] [place], [place] [phone] (Wo rk) 05/31/2022 Office Visit Family Practice Valery Veronica PAUcheC [address] [place], [place] [address] (Wo rk) documented as of this encounter Visit Diagnoses Not on filedocumented in this encounter
--- OUTSIDE RECORDS SUMMARY | 2022-04-28 01:26 | XMS_ITS | Encounter Summary ---
:2000 Author Organization [place] Address [address] [place] [address]. [place] [address] Care Team Providers Name Role Phone Unavailable Primary Care Provider Unavailable Encounter Details Date Type Department Care Team Description 2007 Historic Results INTERFACED REPORT [place]iona [place] [address] [place], [place] [phone] (Wo rk) Social History [...] How often do you attend presybeterian or mosque services? Never 09/22/2021 Do you [...] Office Visit Family Practice Anthony Doe PABaldo [address] [place], [place] [phone] (Wo rk) 05/03/2022 Office Visit Dermatology Neil Kent M D [address] [place], [place] [address] (Wo rk) 05/05/2022 Office Visit Optometry Yeny David, OD [address] [facility] [address] [place], [place] [phone] (Wo rk) 05/11/2022 Virtual Visit Pharm D Diana Desir , [facility] [address] [place], [place] [phone] (Wo rk) 05/14/2022 Office Visit Cardiology Livan Sharif MD [address] [facility] [address] , [facility] [address] [place], [place] [address] (Wo rk) 05/31/2022 Office Visit Family [facility] Valery Veronica PA-C [address] [place], [place] [phone] (Wo rk) documented as of this encounter Procedures Procedure Name Priority Date/Time Associated Comments Diagnosis HEMOGRAM DIFFERENTIAL Timed 2007 8:25 AM Results for this AND PLATELET CDT procedure are i n the results section. CRP INFLAMMATION Timed 2007 8:25 AM Resul ts for this CDT procedure are i n the results section. BASIC METABOLIC PANEL Timed 2007 8:25 AM Results for this CDT procedure are i n the results section. documented in this encounter Results (ABNORMAL) Hemogram differential and platelet (2007 8:25 AM CDT) Component Value Ref Test Analysis Performed At [facility] Range Method Time Signature MCV 75 70 - 100 MISYS fl MCH 24.1 (L) 26.5 - MISYS 33.0 pg MCHC 32.2 31.5 - MISYS 36.5 g/dL RDW 13.1 10.0 - MISYS 15.0 % WBC 7.0 5.0 - MISYS 14.5 10e9/L RBC Count 4.52 3.7 - MISYS 5.3 10e12/L Hemoglobin 10.9 10.5 - MISYS 14.0 g/dL Hematocrit 33.8 31.5 - MISYS 43.0 % % Neutrophils 62 (H) 32 - 54 MISYS % % Lymphocytes 29 27 - 57 MISYS % % Monocytes 5 0 - 10 % MISYS % Eosinophils 3 0 - 6 % MISYS % Metamyelocytes 1 (H) 0 % MISYS Platelet Count 487 (H) 150 - MISYS 450 10e9/L Absolute 4.3 1.3 - MISYS Neutrophil 8.1 10e9/L Absolute 2.0 1.1 - MISYS Lymphocytes 8.6 10e9/L Absolute 0.4 0.0 - MISYS Monocytes 1.1 10e9/L Absolute 0.2 0.0 - MISYS Eosinophils 0.7 10e9/L Absolute 0.1 10e9/L MISYS Metamyelocytes Platelet Estimate Increased MISYS Diff Method Manual MISYS Differential RBC Morphology Consistent with MISYS reported results Reactive Lymphs Present MISYS Specimen Anatomical Collection Method Collection Time Receive d Time (Source) Location / / Volume Laterality 2007 8:25 AM 7 8:00 CDT AM CDT Skye Posadas MD LAB - BLOOD ORDERABLES Performing Organization Address City/State/ZIP Code Phon e Number MISYS Basic metabolic panel (2007 8:25 AM CDT) [facility] Method Time Signature Sodium 140 133 - 143 MISYS mmol/L Potassium 4.4 3.4 - 5.3 MISYS mmol/L Chloride 101 96 - 110 MISYS mmol/L Carbon Dioxide 27 20 - 32 MISYS mmol/L Glucose 84 60 - 99 MISYS mg/dL Urea Nitrogen 7 5 - 24 MISYS mg/dL Creatinine 0.49 0.20 - MISYS 0.70 mg/dL GFR Estimate GFR not mL/min/1. MISYS calculated, 7m2 patient <16 years old. GFR Estimate If GFR not mL/min/1. MISYS Black calculated, 7m2 patient <16 years old. Calcium 9.7 8.7 - MISYS 10.8 mg/dL Anion Gap 12 6 - 17 MISYS mmol/L Specimen Anatomical Collection Method Collection Time Receive d Time (Source) Location / / Volume Laterality 2007 8:25 AM 7 8:00 CDT AM CDT Skye Posadas MD LAB - BLOOD ORDERABLES Performing Organization Address City/State/ZIP Code Phon e Number MISYS (ABNORMAL) CRP inflammation (2007 8:25 AM CDT) [facility] gist Method Time Signature CRP Inflammation 11.6 (H) 0.0 - 8.0 MISYS mg/L Specimen Anatomical Collection Method Collection Time Receive d Time (Source) Location / / Volume Laterality 2007 8:25 AM 7 8:00 CDT AM CDT Skye Posadas MD LAB - BLOOD ORDERABLES Performing Organization Address City/State/ZIP Code Phon e Number MISYS documented in this encounter Visit Diagnoses Not on filedocumented in this encounter
--- OUTSIDE RECORDS SUMMARY | 2022-04-28 01:26 | XMS_ITS | Encounter Summary ---
:2000 Author Organization [place] Address [address] [place] [address]. [place] [address] Care Team Providers Name Role Phone Unavailable Primary Care Provider Unavailable Encounter Details Date Type Department Care Team Description 04/21/2007 Historic Results INTERFACED REPORT [place]iona [place] [address] [place], [place] [phone] (Wo rk) Social History [...] often do you attend oriental orthodox or cheondoism services? Never 09/22/2021 Do you [...] Office Visit Family Practice Anthony Doe PABaldo [address] [place], [place] [phone] (Wo rk) 05/03/2022 Office Visit Dermatology Neil Kent M D [address] [place], [place] [phone] (Wo rk) 05/05/2022 Office Visit Optometry Yeny David, OD [address] [facility] [facility] [address] [place] [phone] (Wo rk) 05/11/2022 Virtual Visit Pharm D Diana Desri , [facility] [address] [place], [place] [phone] (Wo rk) 05/14/2022 Office Visit Cardiology Livan Sharif MD [address] [facility] , [facility] [address] [place], [place] [phone] (Wo rk) 05/31/2022 Office Visit Family [facility] Valery Veronica PA-C [address] [place], [place] [phone] (Wo rk) documented as of this encounter Procedures Procedure Name Priority Date/Time Associated Comments Diagnosis HEMOGRAM DIFFERENTIAL Timed 04/21/2007 8:05 AM Results for this AND PLATELET CDT procedure are i n the results section. CRP INFLAMMATION Timed 04/21/2007 8:05 AM Resul ts for this CDT procedure are i n the results section. BASIC METABOLIC PANEL Timed 04/21/2007 8:05 AM Results for this CDT procedure are i n the results section. documented in this encounter Results (ABNORMAL) Hemogram differential and platelet (04/21/2007 8:05 AM CDT) Component Value Ref Test Analysis Performed At [facility] Range Method Time Signature MCV 75 70 - 100 MISYS fl MCH 24.6 (L) 26.5 - MISYS 33.0 pg MCHC 32.7 31.5 - MISYS 36.5 g/dL RDW 13.2 10.0 - MISYS 15.0 % WBC 6.6 5.0 - MISYS 14.5 10e9/L RBC Count 4.48 3.7 - MISYS 5.3 10e12/L Hemoglobin 11.0 10.5 - MISYS 14.0 g/dL Hematocrit 33.6 31.5 - MISYS 43.0 % % Neutrophils 27 (L) 32 - 54 MISYS % % Lymphocytes 60 (H) 27 - 57 MISYS % % Monocytes 10 0 - 10 % MISYS % Eosinophils 1 0 - 6 % MISYS % Basophils 2 (H) 0 - 1 % MISYS Platelet Count 328 150 - MISYS 450 10e9/L Absolute 1.8 1.3 - MISYS Neutrophil 8.1 10e9/L Absolute 3.9 1.1 - MISYS Lymphocytes 8.6 10e9/L Absolute 0.7 0.0 - MISYS Monocytes 1.1 10e9/L Absolute 0.1 0.0 - MISYS Eosinophils 0.7 10e9/L Absolute 0.1 0.0 - MISYS Basophils 0.2 10e9/L Platelet Normal MISYS Estimate Diff Method Manual MISYS Differential RBC Morphology Consistent with MISYS reported results Reactive Lymphs Present MISYS Specimen Anatomical Collection Method Collection Time Receive d Time (Source) Location / / Volume Laterality 04/21/2007 8:05 AM 7 8:00 CDT AM CDT Skye Posadas MD LAB - BLOOD ORDERABLES Performing Organization Address City/State/ZIP Code Phon e Number MISYS Basic metabolic panel (04/21/2007 8:05 AM CDT) [facility] Method Time Signature Sodium 141 133 - 143 MISYS mmol/L Potassium 4.2 3.4 - 5.3 MISYS mmol/L Chloride 101 96 - 110 MISYS mmol/L Carbon Dioxide 27 20 - 32 MISYS mmol/L Glucose 87 60 - 99 MISYS mg/dL Urea Nitrogen 6 5 - 24 MISYS mg/dL Creatinine 0.51 0.20 - MISYS 0.70 mg/dL GFR Estimate GFR not mL/min/1. MISYS calculated, 7m2 patient <16 years old. GFR Estimate If GFR not mL/min/1. MISYS Black calculated, 7m2 patient <16 years old. Calcium 9.4 8.7 - MISYS 10.8 mg/dL Anion Gap 12 6 - 17 MISYS mmol/L Specimen Anatomical Collection Method Collection Time Receive d Time (Source) Location / / Volume Laterality 04/21/2007 8:05 AM 7 8:00 CDT AM CDT Skye Posadas MD LAB - BLOOD ORDERABLES Performing Organization Address City/State/ZIP Code Phon e Number MISYS (ABNORMAL) CRP inflammation (04/21/2007 8:05 AM CDT) [facility] gist Method Time Signature CRP Inflammation 28.3 (H) 0.0 - 8.0 MISYS mg/L Specimen Anatomical Collection Method Collection Time Receive d Time (Source) Location / / Volume Laterality 04/21/2007 8:05 AM 7 8:00 CDT AM CDT Skye Posadas MD LAB - BLOOD ORDERABLES Performing Organization Address City/State/ZIP Code Phon e Number MISYS documented in this encounter Visit Diagnoses Not on filedocumented in this encounter
--- OUTSIDE RECORDS SUMMARY | 2022-04-28 01:26 | XMS_ITS | Encounter Summary ---
:2000 Author Organization [place] Address [address] [place] [address]. [place] [address] Care Team Providers Name Role Phone Unavailable Primary Care Provider Unavailable Encounter Details Date Type Department Care Team Description 04/24/2007 Historic Results INTERFACED REPORT [place] [address] [place], [place] [phone] (Wo rk) Social History [...] How often do you attend gnosticism or taoist services? Never 09/22/2021 Do you [...] Office Visit Family Practice Anthony Doe PABaldo [address] [place], [place] [phone] (Wo rk) 05/03/2022 Office Visit Dermatology Neil Kent M D [address] [place], [place] [phone] (Wo rk) 05/05/2022 Office Visit Optometry Yeny David, OD [address] [facility] [facility] [address] [place], [place] [phone] (Wo rk) 05/11/2022 Virtual Visit Pharm D Diana Desir , [facility] [address] [place], [place] [phone] (Wo rk) 05/14/2022 Office Visit Cardiology Livan Sharif MD [address] [facility] , [facility] [address] [place], [place] [address] (Wo rk) 05/31/2022 Office Visit Family [facility] Valery Veronica PA-C [address] [place], [place] [phone] (Wo rk) documented as of this encounter Procedures Procedure Name Priority Date/Time Associated Comments Diagnosis HEMOGRAM DIFFERENTIAL Timed 04/24/2007 8:30 AM Results for this AND PLATELET CDT procedure are i n the results section. CRP INFLAMMATION Timed 04/24/2007 8:30 AM Resul ts for this CDT procedure are i n the results section. BASIC METABOLIC PANEL Timed 04/24/2007 8:30 AM Results for this CDT procedure are i n the results section. documented in this encounter Results (ABNORMAL) Hemogram differential and platelet (04/24/2007 8:30 AM CDT) [facility] Method Time Signature MCV 76 70 - 100 MISYS fl MCH 24.0 (L) 26.5 - MISYS 33.0 pg MCHC 31.6 31.5 - MISYS 36.5 g/dL RDW 12.9 10.0 - MISYS 15.0 % WBC 7.2 5.0 - MISYS 14.5 10e9/L RBC Count 4.34 3.7 - 5.3 MISYS 10e12/L Hemoglobin 10.4 (L) 10.5 - MISYS 14.0 g/dL Hematocrit 32.9 31.5 - MISYS 43.0 % % Neutrophils 50 32 - 54 % MISYS % Lymphocytes 36 27 - 57 % MISYS % Monocytes 10 0 - 10 % MISYS % Eosinophils 3 0 - 6 % MISYS % Basophils 1 0 - 1 % MISYS Platelet Count 514 (H) 150 - 450 MISYS 10e9/L Absolute 3.7 1.3 - 8.1 MISYS Neutrophil 10e9/L Absolute 2.6 1.1 - 8.6 MISYS Lymphocytes 10e9/L Absolute 0.7 0.0 - 1.1 MISYS Monocytes 10e9/L Absolute 0.2 0.0 - 0.7 MISYS Eosinophils 10e9/L Absolute 0.0 0.0 - 0.2 MISYS Basophils 10e9/L Diff Method Automated MISYS Method Specimen Anatomical Collection Method Collection Time Receive d Time (Source) Location / / Volume Laterality 04/24/2007 8:30 AM 7 8:00 CDT AM CDT Skye Posadas MD LAB - BLOOD ORDERABLES Performing Organization Address City/State/ZIP Code Phon e Number MISYS Basic metabolic panel (04/24/2007 8:30 AM CDT) [facility] Method Time Signature Sodium 141 133 - 143 MISYS mmol/L Potassium 4.3 3.4 - 5.3 MISYS mmol/L Chloride 103 96 - 110 MISYS mmol/L Carbon Dioxide 25 20 - 32 MISYS mmol/L Glucose 84 60 - 99 MISYS mg/dL Urea Nitrogen 10 5 - 24 MISYS mg/dL Creatinine 0.46 0.20 - MISYS 0.70 mg/dL GFR Estimate GFR not mL/min/1. MISYS calculated, 7m2 patient <16 years old. GFR Estimate If GFR not mL/min/1. MISYS Black calculated, 7m2 patient <16 years old. Calcium 9.6 8.7 - MISYS 10.8 mg/dL Anion Gap 13 6 - 17 MISYS mmol/L Specimen Anatomical Collection Method Collection Time Receive d Time (Source) Location / / Volume Laterality 04/24/2007 8:30 AM 7 8:00 CDT AM CDT Skye Posadas MD LAB - BLOOD ORDERABLES Performing Organization Address City/State/ZIP Code Phon e Number MISYS CRP inflammation (04/24/2007 8:30 AM CDT) P athologist Signature CRP Inflammation 7.5 0.0 - 8.0 MISYS mg/L Specimen Anatomical Collection Method Collection Time Receive d Time (Source) Location / / Volume Laterality 04/24/2007 8:30 AM 7 8:00 CDT AM CDT kSye Posadas MD LAB - BLOOD ORDERABLES Performing Organization Address City/State/ZIP Code Phon e Number MISYS documented in this encounter Visit Diagnoses Not on filedocumented in this encounter
--- OUTSIDE RECORDS SUMMARY | 2022-04-28 01:26 | XMS_ITS | Encounter Summary ---
:2000 Author Organization [place] Address [address] [place] [address] Care Team Providers Name Role Phone Unavailable Primary Care Provider Unavailable Encounter Details Date Type Department Care Team Description 04/20/2007 Historic Notes INTERFACED REPORT Interface, Transcript onMD [...] How often do you attend voodoo or sikh services? Never 09/22/2021 Do you [...] as of this encounter Progress Notes Interface, Salad Maker - 09/28/2010 8:53 AM CDT Vancomycin Therapy Consult: Day 2 of vancomycin therapy, currently receiving 500 mg IV q6 hr for pyelonephritis. Pt is 6 yo, weighs 38.1 kg, 130.5 cm tall. Vancomycin trough level today is 10.3 mg/L with a goal of 8-15 mg/L. Labs today: BUN 4, Scr 0.47, est crcl 150 ml/min, WBC 5.4. Tmax 102.2 04/17 blood cx negative to date, 04/18 urine cx negative, 04/18 blood cx negative to date Vancomycin trough on current regimen within desired range. Will continue with current dose and continue to follow. [Signature] Author:Chichi Wyatt (PharmD) [Signed 20-Apr-2007 14:06] Interface, Salad Maker - 09/28/2010 8:53 AM CDT Anthropometrics - Height: 130.5cm - Admission weight: 38kg - BMI: 22.37 - IBW ([place] body weight): 26.2 - % IBW ([place] body weight): 145% - Adjusted weight: 29kg - Comments:: Wt/age: >97th% Ht/age: 95-97th% BMI/age: >97th% Anthropometrics suggest pt. is overweight. Nutrition Prescription Nutrition Prescription - Nutrition Prescription: Regular Pediatric 4-8year old. - Comments:: IVF 2 day average provided 234kcal/d. Nutrition History Nutrition History - Nutrition history: Per mom pt. has had a decreased intake of food since tuesday (x 5 day). Pt. was having nausea and vomiting which has since subsided. Over the past 48 hours mom states that appetite has started to improve. Pt. had grapes for breakfast and a few bites of a corn dog, fries and pudding for lunch. Labs/Medications Labs/Medications - Labs: Reviewed - Medications: Reviewed - Medication comments: Vanco Physical Findings Physical Findings - Physical findings Anorexia/Early satiety, Other <free text>, Negative for kidney stones Estimated Needs Estimated Needs - Energy needs: 1470-1550kcal/d (BEE x 1.2-1.3) - Protein needs: 1.5-2.0g/kg - Fluid needs: ~1624mL for baseline Nutrition Diagnosis Nutrition Diagnosis - Nutrition diagnosis: Pt. with inadequate protein-energy intake related to decreased appetite AEB mom reports decreased intake over the past 5 days. Interventions Interventions - Interventions: 1. Start snacks: cheese and crackers snack in PM and Ensure Chocolate at breakfast. 2. Encouraged po and talked to pt. about tryign to eat 1/4 of meals. - Goals: 1. Initial po goal of 25% of meals. - Follow-up: po intake and tolerance, tolerance to snacks, weight, labs, meds, hospital course - Recommendations: 1. If po does not begin to improve in 24-48 hours would consider starting nutrition support. Signatures SONI FERRERA (RD, LD)[Signed 20-Apr-2007 15:28] Authored: Anthropometrics, Nutrition Prescription, Nutrition History, Labs/Medications, Physical Findings, Estimated Needs, Nutrition Diagnosis, Interventions documented in this encounter Plan of Treatment Upcoming Encounters Date Type Specialty Care Team Description 04/28/2022 Office Visit Family Practice Anthony Doe, ROVERTO [address] [place], [place] [phone] ([place] car[place]) 05/03/2022 Office Visit Dermatology Neil Kent M D [address] [place], [place] [address] ([place] car[place]son) 05/05/2022 Office Visit Optometry Yeny David, OD [address] [facility] [address] [place] [phone] (Jefferson carlson) 05/11/2022 Virtual Visit Pharm Diana Eckert , [facility] [address] [place], [place] [address] ([place] car[place]son) 05/14/2022 Office Visit Cardiology Livan Sharif MD [address] [place], [place] [phone] (Wo rk) 05/31/2022 Office Visit Family Practice Valery Veronica PA-C [address] [place] [address] (Wo rk) documented as of this encounter Visit Diagnoses Not on filedocumented in this encounter
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
--- OUTSIDE RECORDS SUMMARY | 2022-04-28 01:26 | XMS_ITS | Encounter Summary ---
:2000 Author Organization [place] Address [address] [place] [address] Care Team Providers Name Role Phone Unavailable Primary Care Provider Unavailable Encounter Details Date Type Department Care Team Description 04/16/2007 Historic Results INTERFACED REPORT Charlie Doss MD [facility] [address] [place] [address] (Wo rk) Social History Tobacco [...] How often do you attend adventist or caodaism services? Never 09/22/2021 Do you [...] Office Visit Family Practice Anthony Doe, PAUcheC [address] [place], [place] [phone] (Wo rk) 05/03/2022 Office Visit Dermatology Neil Kent M D [address] [place] [phone] (Wo rk) 05/05/2022 Office Visit Optometry Yeny David, OD [address] [facility] [address] [place], [place] [phone] (Wo rk) 05/11/2022 Virtual Visit Pharm D Diana Desir , [facility] [address] [place] [address] (Wo rk) 05/14/2022 Office Visit Cardiology Livan Sharif MD [address] [facility] [address] [place], [place] [address] (Wo rk) 05/31/2022 Office Visit Family Practice Valery Veronica PABaldo [address] [place] [address] (Wo rk) documented as of this encounter Procedures Procedure Name Priority Date/Time Associated Comments Diagnosis ROUTINE UA WITH STAT 04/16/2007 2:30 PM Result s for this MICROSCOPIC CDT procedure are i n the results section. URINE CULTURE Routine 04/16/2007 2:30 PM Results for this CDT procedure are i n the results section. documented in this encounter Results (ABNORMAL) Routine UA with microscopic (04/16/2007 2:30 PM CDT) [facility] Method Time Signature Source Midstream MISYS Urine Color Urine Yellow MISYS Appearance Urine Slightly MISYS Cloudy Glucose Urine Negative NEG mg/dL MISYS Bilirubin Urine Negative NEG MISYS Ketones Urine 10 (A) NEG mg/dL MISYS Specific [place] 1.023 1.003 - MISYS Urine 1.035 Blood Urine Small (A) NEG MISYS pH Urine 5.5 5.0 - 7.0 MISYS pH Protein Albumin 100 (A) NEG mg/dL MISYS Urine Urobilinogen Normal 0.0 - 2.0 MISYS mg/dL mg/dL Nitrite Urine Negative NEG MISYS Leukocyte Small (A) NEG MISYS Esterase Urine WBC Urine 46 (H) 0 - 2 MISYS /HPF RBC Urine 18 (H) 0 - 2 MISYS /HPF Squamous 1 0 - 1 MISYS Epithelial /HPF /HPF Urine Transitional Epi 1 0 - 1 MISYS /HPF Bacteria Urine Many (A) NEG /HPF MISYS Mucous Urine Present (A) NEG /LPF MISYS Specimen Anatomical Collection Method Collection Time Receive d Time (Source) Location / / Volume Laterality 04/16/2007 2:30 PM 7 2:37 CDT PM CDT Ben Yanez MD LAB - URINE ORDERABLES Performing Organization Address City/[facility] Phon e Number MISYS Urine culture (04/16/2007 2:30 PM CDT) [facility] Method Time Signature Specimen Midstream MISYS Description Urine Culture Micro No growth MISYS Micro Report FINAL MISYS Status [id number] Specimen Anatomical Collection Method Collection Time Receive d Time (Source) Location / / Volume Laterality 04/16/2007 2:30 PM 7 3:09 CDT PM CDT Yanely Doss MD LAB - MICRO GENERAL ORDERABL ES Performing Organization Address City/State/ZIP Code Phon e Number MISYS documented in this encounter Visit Diagnoses Not on filedocumented in this encounter
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
--- OUTSIDE RECORDS SUMMARY | 2022-04-28 01:26 | XMS_ITS | Encounter Summary ---
:2000 Author Organization [facility] Address [address] [place] [address] Care Team Providers Name Role Phone Unavailable Primary Care Provider Unavailable Encounter Details Date Type Department Care Team Description 04/17/2007 Results Only [facility] Skye Posadas, Hospital [place] [address] [place], [place] [address] (Wo rk) Social History [...] How often do you attend restorationist or yazidi services? Never 09/22/2021 Do you [...] Office Visit Family Practice Anthony Doe, PAUcheC [address] [place], [place] [phone] (Wo rk) 05/03/2022 Office Visit Dermatology Neil Kent M D [address] [place] [phone] (Wo rk) 05/05/2022 Office Visit Optometry Yeny David, OD [address] [facility] [address] [address] [place], [place] [phone] (Wo rk) 05/11/2022 Virtual Visit Pharm D Diana Desir , [facility] [address] [place] [address] (Wo rk) 05/14/2022 Office Visit Cardiology Livan Sharif MD [address] [facility] [address] [place], [place] [address] (Wo rk) 05/31/2022 Office Visit Family [facility] Valery Veronica PA-C [address] [place] [address] (Wo rk) documented as of this encounter Procedures Procedure Name Priority Date/Time Associated Diagnosis Comme nts HC X-RAY ABDOMEN AP Routine 04/17/2007 9:41 PM Re sults for this VIEW (KUB) CDT procedure are i n the results section. documented in this encounter Results X-RAY ABDOMEN 1 VW (04/17/2007 9:41 PM CDT) Anatomical Region Laterality Modality Other Specimen (Source) Anatomical Collection Method Collection Time Re ceived Time Location / / Volume Laterality 04/17/2007 9:41 PM CDT Impressions 04/18/2007 7:52 AM CDT ABDOMEN 1 VIEW Apr 17, 2007 9:41:00 PM HISTORY: pyelonephritis, ??abdominal dis tention FINDINGS: There is a moderate amount of gas throughout the large and small bowel. There are a few mildly prom inent small bowel loops in the midabdomen which is nonspecific. If clin ical symptoms persist, recommend followup radiographs or abdomi nal CT for further evaluation. Skye Posadas MD GENERAL IMAGING documented in this encounter Visit Diagnoses Not on filedocumented in this encounter
--- OUTSIDE RECORDS SUMMARY | 2022-04-28 01:26 | XMS_ITS | Encounter Summary ---
:2000 Author Organization [facility] Address [address] [place] [address] Care Team Providers Name Role Phone Unavailable Primary Care Provider Unavailable Encounter Details Date Type Department Care Team Description 04/24/2007 Historic Notes INTERFACED REPORT Interface, Transcript onMD [...] How often do you attend mandaen or uatsdin services? Never 09/22/2021 Do you [...] for the very basics like Not v adnrey hard 09/22/2021 food, housing, medical care, and [...] as of this encounter Progress Notes Interface, Dedicated Truck Driver - 09/28/2010 8:45 AM CDT Nutrition Diagnosis Nutrition Diagnosis - Nutrition diagnosis: Previous (04/20) Pt. with inadequate protein-energy intake related to decreased appetite AEB mom reports decreased intake over the past 5 days. Anthropometrics - Admission weight: 38kg - Current weight: 37.4 kg - Comments:: Pt wt is remaining stable while hospitalized. Previously noted: Wt/age: >97th% Ht/age: 95-97th% BMI/age: >97th% Anthropometrics suggest pt. is overweight. Nutrition Prescription/Intake Tolerance Nutrition Prescription - Nutrition Prescription: Regular Pediatric 4-8year old. - Comments:: Pt receiving 8 oz yogurt BID, Ensure with Breakfast, and cheese/crackers @ 2 pm. Intake Tolerance - Intake tolerance: Pt tolerating diet, good appetite per FCIS. Labs/Medications Labs/Medications - Labs: Reviewed - Medications: Reviewed - Medication comments: Vanco Physical Findings Physical Findings - Physical findings Anorexia/Early satiety, Other <free text>, Negative for kidney stones Estimated Needs Estimated Needs - Energy needs: 1470-1550kcal/d (BEE x 1.2-1.3) - Protein needs: 1.5-2.0g/kg - Fluid needs: ~1624mL for baseline Evaluation Evaluation - Evaluation: Pt meeting goal of eating 25% of meals. Current Nutrition Diagnosis Current Nutrition Diagnosis - Current nutrition Same as previous diagnosis: Interventions Interventions - Interventions: Continue to send snacks. - Goals: Pt to consume >50% of meals. - Follow-up: Monitor po intake Monitor wt changes Monitor labs - Recommendations: No recs at this time. 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 Parents were not present. Encouraged and supported patient's expression of thoughts and feelings about her illness and family. She told me that her parents were , and that she did not get to spend enough time with her father. In general, patient appeared to be in good spirits but complained about having no one to play with. Played Ted with her but was asked by her to step out in favor of the volunteer, who knew the game better. Will stop in again if time allows. [Signature] Author:Isaura Weems (Co Founder And Director) [Signed 24-Apr-2007 15:03] documented in this encounter Plan of Treatment Upcoming Encounters Date Type Specialty Care Team Description 04/28/2022 Office Visit Family Practice Anthony Doe, PAUcheC [address] [place] [address] (Wo rk) 05/03/2022 Office Visit Dermatology Neil Kent M D [address] [place], [place] [phone] (Wo rk) 05/05/2022 Office Visit Optometry Yeny David, OD [address] [facility] [address] [place], [place] [phone] (Wo rk) 05/11/2022 Virtual Visit Pharm D Diana Desir , [facility] [address] [place], [place] [phone] (Wo rk) 05/14/2022 Office Visit Cardiology Livan Sharif MD [address] , [facility] [address] [place], [place] [phone] (Wo rk) 05/31/2022 Office Visit Family Practice Valery Veronica PABaldo [address] [place], [place] [address] (Wo rk) documented as of this encounter Visit Diagnoses Not on filedocumented in this encounter
--- OUTSIDE RECORDS SUMMARY | 2022-04-28 01:26 | XMS_ITS | Encounter Summary ---
:2000 Author Organization [facility] Address [address] [place] [address]. [place] [address] Care Team Providers Name Role Phone Unavailable Primary Care Provider Unavailable Encounter Details Date Type Department Care Team Description 04/19/2007 Historic Results INTERFACED REPORT [place] [address] [place], [place] [address] (Wo rk) Social History [...] How often do you attend jew or lutheran services? Never 09/22/2021 Do you [...] Office Visit Family Practice Anthony Doe PA-C [address] [place], [place] [phone] (Wo rk) 05/03/2022 Office Visit Dermatology Neil Kent M D [address] [place], [place] [address] (Wo rk) 05/05/2022 Office Visit Optometry Yeny David, OD [address] [facility] [address] [place], [place] [phone] (Wo rk) 05/11/2022 Virtual Visit Pharm D Diana Desir , [facility] [address] [place], [place] [phone] (Wo rk) 05/14/2022 Office Visit Cardiology Livan Sharif MD [address] [facility] [address] [facility] [address] [place], [place] [address] (Wo rk) 05/31/2022 Office Visit Family [facility] Valery Veronica PA-C [address] [place], [place] [phone] (Wo rk) documented as of this encounter Procedures Procedure Name Priority Date/Time Associated Comments Diagnosis VANCOMYCIN LEVEL Timed 04/19/2007 5:57 PM Resul ts for this CDT procedure are i n the results section. HEMOGRAM DIFFERENTIAL Timed 04/19/2007 8:20 AM Results for this AND PLATELET CDT procedure are i n the results section. ERYTHROCYTE Timed 04/19/2007 8:20 AM Results f or this SEDIMENTATION RATE CDT procedure are in AUTO the results section. CRP INFLAMMATION Timed 04/19/2007 8:20 AM Resul ts for this CDT procedure are i n the results section. BASIC METABOLIC PANEL Timed 04/19/2007 8:20 AM Results for this CDT procedure are i n the results section. documented in this encounter Results Vancomycin (04/19/2007 5:57 PM CDT) P athologist Signature Vancomycin Level 7.2 mg/L MISYS Comment: Traditional dose therapeutic range: ?Trough: ?? 5 - 10 mg/L ?Peak: ?20 - 40 mg/L Specimen Anatomical Collection Method Collection Time Receive d Time (Source) Location / / Volume Laterality 04/19/2007 5:57 PM 7 6:00 CDT PM CDT Skye Posadas MD LAB - BLOOD ORDERABLES Performing Organization Address City/State/ZIP Code Phon e Number MISYS Basic metabolic panel (04/19/2007 8:20 AM CDT) Patholo gist Method Time Signature Sodium 138 133 - 143 MISYS mmol/L Potassium 3.5 3.4 - 5.3 MISYS mmol/L Chloride 105 96 - 110 MISYS mmol/L Carbon Dioxide 23 20 - 32 MISYS mmol/L Glucose 92 60 - 99 MISYS mg/dL Urea Nitrogen 6 5 - 24 MISYS mg/dL Creatinine 0.48 0.20 - MISYS 0.70 mg/dL GFR Estimate GFR not mL/min/1. MISYS calculated, 7m2 patient <16 years old. GFR Estimate If GFR not mL/min/1. MISYS Black calculated, 7m2 patient <16 years old. Calcium 8.9 8.7 - MISYS 10.8 mg/dL Anion Gap 10 6 - 17 MISYS mmol/L Specimen Anatomical Collection Method Collection Time Receive d Time (Source) Location / / Volume Laterality 04/19/2007 8:20 AM 7 8:00 CDT AM CDT Skye Posadas MD LAB - BLOOD ORDERABLES Performing Organization Address City/State/ZIP Code Phon e Number MISYS (ABNORMAL) Hemogram differential and platelet (04/19/2007 8:20 AM CDT) Patholo gist Method Time Signature MCV 74 70 - 100 MISYS fl MCH 24.2 (L) 26.5 - MISYS 33.0 pg MCHC 32.5 31.5 - MISYS 36.5 g/dL RDW 13.3 10.0 - MISYS 15.0 % WBC 5.9 5.0 - MISYS 14.5 10e9/L RBC Count 4.26 3.7 - 5.3 MISYS 10e12/L Hemoglobin 10.3 (L) 10.5 - MISYS 14.0 g/dL Hematocrit 31.7 31.5 - MISYS 43.0 % % Neutrophils 52 32 - 54 % MISYS % Lymphocytes 29 27 - 57 % MISYS % Monocytes 17 (H) 0 - 10 % MISYS % Eosinophils 2 0 - 6 % MISYS % Basophils 0 0 - 1 % MISYS Platelet Count 193 150 - 450 MISYS 10e9/L Absolute 3.1 1.3 - 8.1 MISYS Neutrophil 10e9/L Absolute 1.7 1.1 - 8.6 MISYS Lymphocytes 10e9/L Absolute 1.0 0.0 - 1.1 MISYS Monocytes 10e9/L Absolute 0.1 0.0 - 0.7 MISYS Eosinophils 10e9/L Absolute 0.0 0.0 - 0.2 MISYS Basophils 10e9/L Diff Method Automated MISYS Method Specimen Anatomical Collection Method Collection Time Receive d Time (Source) Location / / Volume Laterality 04/19/2007 8:20 AM 7 8:00 CDT AM CDT Skye Posadas MD LAB - BLOOD ORDERABLES Performing Organization Address City/State/ZIP Code Phon e Number MISYS (ABNORMAL) Erythrocyte sedimentation rate auto (04/19/2007 8:20 AM CDT) P athologist Signature Sed Rate 42 (H) 0 - 15 mm/h MISYS Specimen Anatomical Collection Method Collection Time Receive d Time (Source) Location / / Volume Laterality 04/19/2007 8:20 AM 7 8:00 CDT AM CDT Skye Posadas MD LAB - BLOOD ORDERABLES Performing Organization Address City/State/ZIP Code Phon e Number MISYS (ABNORMAL) CRP inflammation (04/19/2007 8:20 AM CDT) [facility] gist Method Time Signature CRP Inflammation 71.1 (H) 0.0 - 8.0 MISYS mg/L Specimen Anatomical Collection Method Collection Time Receive d Time (Source) Location / / Volume Laterality 04/19/2007 8:20 AM 7 8:00 CDT AM CDT Skye Posadas MD LAB - BLOOD ORDERABLES Performing Organization Address City/State/ZIP Code Phon e Number MISYS documented in this encounter Visit Diagnoses Not on filedocumented in this encounter
--- OUTSIDE RECORDS SUMMARY | 2022-04-28 01:26 | XMS_ITS | Encounter Summary ---
:2000 Author Organization [facility] Address [address] [place] [address] Care Team Providers Name Role Phone Unavailable Primary Care Provider Unavailable Encounter Details Date Type Department Care Team Description 04/17/2007 Discharge Summary Benjamin Posadas MD (Gripper Installer) [facility] [address] [place], [place] [address] (Wo rk) Social History [...] How often do you attend confucianism or faith services? Never 09/22/2021 Do you [...] documented as of this encounter Progress Notes JessicaBenjamin parada - 2007 11:02 PM CDT FINAL HISTORY OF PRESENT ILLNESS: Kim is a 6-year-old who is here for pyelonephritis. Most importantly is that her original culture is questionable. It was obtained at [facility] on Tuesday and she was started on Bactrim at that time. The culture itself was not sent out until Tuesday because of . The culture itself was returned to us as being E. coli sensitive to everything, but we were told by the lab that it is questionable whether or not we can trust that culture because it sat so many days. All subsequent cultures that we have for had here in the hospital after she started antibiotics have had no growth. Also, of concern is that she did have an episode 1 yearago like this. During the course of this UTI, she was on Bactrim on Tuesday. By Tuesday she was vomiting and not able to keep it down, was seen in the ER, was given an antiemetic and still continued togo home and vomit. She was then admitted on Tuesday started on cefotaxime, and while her CRP improved, clinically she got worse with a fever spiking as high as 105.2. Because of her clinical worsening, Dr. Castro was consulted and she was started on IV vancomycin and Fortaz. She immediately responded and now at this time has been afebrile for 32 hours with her T-max being 100.3 at 9:00 p.m. last night, and attempt prior to that being 2 a.m. the day before. Also, evident within 24 hours of starting the vancomycin and Fortaz, she began eating well, being much more energetic, walking around the room, playful and clinically changed dramatically. After consulting Dr. Castro by phone this morning, the decision was made that she should have a full seven days of IV Fortaz and vancomycin which would take her into Tuesday morning and then she would be discharged on Augmentin for 7 days after that. The thought would she would be she would be on prophylactic antibiotics to prevent further UTI for approximately 6 months following that course. She will need a repeat VCUG renal ultrasound and that should bedone approximately one month from now. [facility] [place] and so it can be compared to her previous VCUG and renal ultrasounds. In addition, she does have her birthday approaching on Tuesday and we did negotiate that she would be allowed to go out to eat on a pass in the time frame where she would be able to be free and hep-locked would be from 2:30 p.m. to 7:00 p.m. if they desire to be gone that long. I will leave it up to nursing, depending on how her IV is doing, whether or not she can be gone that entire time or whether she should come back and have a flush half way in between. PHYSICAL EXAMINATION: GENERAL: Physical exam today was unremarkable. She is alert, happy, smiling, playful and looked thebest she has. HEENT: Atraumatic, normocephalic. TMs clear and mobile bilaterally. PERRLA. Extraocular movements intact. Nasal mucosa clear. Posterior pharynx is clear. LUNGS: Clear to auscultation. HEART: Regular rhythm, S1, S2 without murmur. ABDOMEN: Soft, positive bowel sounds, nondistended, nontender. Liver at the right costal margin midclavicular line. Spleen not palpable. SOCIAL HISTORY: No CVA tenderness. ASSESSMENT: Pyelonephritis initially unresponsive to antibiotics. PLAN: As per above. The plan was outlined. In addition, long-term care that we discussed and just her oral hygiene will include: 1. Sending her home on a 6 month supply of Septra as prophylaxis for urinary tract infection. 2. Sending her home also with sterile urine container. She will need 2, one for both father and mother, and she should also be sent home with a supply of probable Keflex, which she could start the minute she has symptoms. In addition, she should be having no baths, should be showering instead and daily. Twice daily she should be washing with Hibiclens in the periurethral area, then rinsing. In addition, she should be applying gentamicin ointment to the periurethral area. As outlined above, follow up with a renal ultrasound and VCUG. Electronically signed on 2007 23:01 by BENJAMIN ROJAS MD MT: [id number] Name: KIM JOHNSON Account: [id number] : 2000 Admit Date: [id number] Discharge Date: Document: [id number] documented in this encounter Plan of Treatment Upcoming Encounters Date Type Specialty Care Team Description 04/28/2022 Office Visit Family Practice Anthony Doe PAUcheC [address] [place], [place] [phone] (Wo rk) 05/03/2022 Office Visit Dermatology Neil Kent M D [address] [place], [place] [phone] (Wo rk) 05/05/2022 Office Visit Optometry Yeny David, OD [address] [facility] [address] [place] [phone] (Wo rk) 05/11/2022 Virtual Visit Pharm D Diana Desir , [facility] [address] [place], [place] [address] (Wo rk) 05/14/2022 Office Visit Cardiology Livan Sharif MD [address] [facility] [address] [place], [place] [phone] (Wo rk) 05/31/2022 Office Visit Family Practice Valery Veronica PAUcheC [address] [place], [place] [address] (Wo rk) documented as of this encounter Visit Diagnoses Not on filedocumented in this encounter
--- OUTSIDE RECORDS SUMMARY | 2022-04-28 01:26 | XMS_ITS | Encounter Summary ---
:2000 Author Organization [facility] Address [address] [place] [address]. [place] [address] Care Team Providers Name Role Phone Unavailable Primary Care Provider Unavailable Encounter Details Date Type Department Care Team Description 04/25/2007 Historic Results INTERFACED REPORT [place] [address] [place], [place] [address] (Wo rk) Social History [...] How often do you attend latter-day or religion services? Never 09/22/2021 Do you [...] Office Visit Family Practice Anthony Doe PABaldo [address] [place], [place] [phone] (Wo rk) 05/03/2022 Office Visit Dermatology Neil Kent M D [address] [place], [place] [phone] (Wo rk) 05/05/2022 Office Visit Optometry Yeny David, OD [address] [facility] [address] [place], [place] [phone] (Wo rk) 05/11/2022 Virtual Visit Pharm D Diana Desir , [facility] [address] [place], [place] [phone] (Wo rk) 05/14/2022 Office Visit Cardiology Livan Sharif MD [address] [facility] [address] [address] [facility] [address] [place], [place] [address] (Wo rk) 05/31/2022 Office Visit Family [facility] Valery Veronica PA-C [address] [place], [place] [address] (Wo rk) documented as of this encounter Procedures Procedure Name Priority Date/Time Associated Comments Diagnosis HEMOGRAM DIFFERENTIAL Timed 04/25/2007 8:45 AM Results for this AND PLATELET CDT procedure are i n the results section. CRP INFLAMMATION Timed 04/25/2007 8:45 AM Resul ts for this CDT procedure are i n the results section. BASIC METABOLIC PANEL Timed 04/25/2007 8:45 AM Results for this CDT procedure are i n the results section. documented in this encounter Results (ABNORMAL) Hemogram differential and platelet (04/25/2007 8:45 AM CDT) P athologist Signature MCV 77 70 - 100 fl MISYS MCH 24.2 (L) 26.5 - 33.0 MISYS pg MCHC 31.4 (L) 31.5 - 36.5 MISYS g/dL Comment: Reviewed, acceptable RDW 13.0 10.0 - 15.0 % MISYS WBC 7.8 5.0 - 14.5 10e9/L MISYS RBC Count 4.63 3.7 - 5.3 10e12/L MISYS Hemoglobin 11.2 10.5 - 14.0 g/dL MISYS Hematocrit 35.7 31.5 - 43.0 % MISYS % Neutrophils 52 32 - 54 % MISYS % Lymphocytes 35 27 - 57 % MISYS % Monocytes 10 0 - 10 % MISYS % Eosinophils 2 0 - 6 % MISYS % Basophils 1 0 - 1 % MISYS Platelet Count 616 (H) 150 - 450 10e9/L MISYS Absolute Neutrophil 4.1 1.3 - 8.1 10e9/L MIS YS Absolute Lymphocytes 2.7 1.1 - 8.6 10e9/L [place] SYS Absolute Monocytes 0.8 0.0 - 1.1 10e9/L MISY S Absolute Eosinophils 0.2 0.0 - 0.7 10e9/L [place] SYS Absolute Basophils 0.0 0.0 - 0.2 10e9/L MISY S Diff Method Automated Method MISYS Specimen Anatomical Collection Method Collection Time Receive d Time (Source) Location / / Volume Laterality 04/25/2007 8:45 AM 7 8:00 CDT AM CDT Skye Posadas MD LAB - BLOOD ORDERABLES Performing Organization Address City/State/ZIP Code Phon e Number MISYS Basic metabolic panel (04/25/2007 8:45 AM CDT) Patholo gist Method Time Signature Sodium 140 133 - 143 MISYS mmol/L Potassium 4.3 3.4 - 5.3 MISYS mmol/L Chloride 103 96 - 110 MISYS mmol/L Carbon Dioxide 24 20 - 32 MISYS mmol/L Glucose 83 60 - 99 MISYS mg/dL Urea Nitrogen 8 5 - 24 MISYS mg/dL Creatinine 0.44 0.20 - MISYS 0.70 mg/dL GFR Estimate GFR not mL/min/1. MISYS calculated, 7m2 patient <16 years old. GFR Estimate If GFR not mL/min/1. MISYS Black calculated, 7m2 patient <16 years old. Calcium 9.8 8.7 - MISYS 10.8 mg/dL Anion Gap 13 6 - 17 MISYS mmol/L Specimen Anatomical Collection Method Collection Time Receive d Time (Source) Location / / Volume Laterality 04/25/2007 8:45 AM 7 8:00 CDT AM CDT Skye Posadas MD LAB - BLOOD ORDERABLES Performing Organization Address City/State/ZIP Code Phon e Number MISYS CRP inflammation (04/25/2007 8:45 AM CDT) P athologist Signature CRP Inflammation 4.5 0.0 - 8.0 MISYS mg/L Specimen Anatomical Collection Method Collection Time Receive d Time (Source) Location / / Volume Laterality 04/25/2007 8:45 AM 7 8:00 CDT AM CDT Skye Posadas MD LAB - BLOOD ORDERABLES Performing Organization Address City/State/ZIP Code Phon e Number MISYS documented in this encounter Visit Diagnoses Not on filedocumented in this encounter
--- OUTSIDE RECORDS SUMMARY | 2022-04-28 01:26 | XMS_ITS | Encounter Summary ---
:2000 Author Organization [facility] Address [address] [place] [address] Care Team Providers Name Role Phone Unavailable Primary Care Provider Unavailable Encounter Details Date Type Department Care Team Description 04/22/2007 Historic Results INTERFACED REPORT Unknown, Provider Social History Tobacco [...] How often do you attend hinduism or worship services? Never 09/22/2021 Do you [...] Office Visit Family Practice Anthony Doe, ROVERTO [address] [place], [place] [phone] (Wo rk) 05/03/2022 Office Visit Dermatology Neil Kent M D [address] [place], [place] [phone] (Wo rk) 05/05/2022 Office Visit Optometry Yeny David, OD [address] [facility] [address] [place], [place] [phone] (Wo rk) 05/11/2022 Virtual Visit Pharm D Diana Desir , [facility] [address] [place], [place] [address] (Wo rk) 05/14/2022 Office Visit Cardiology Livan Sharif MD [address] [facility] [address] [facility] [address] [place], [place] [address] (Wo rk) 05/31/[address] [facility] Valery Veronica PA-C [address] [place], [place] [address] (Wo rk) documented as of this encounter Procedures Procedure Name Priority Date/Time Associated Comments Diagnosis VANCOMYCIN LEVEL Timed 04/22/2007 12:45 Results for this PM CDT procedure are i n the results section. HEMOGRAM DIFFERENTIAL Timed 04/22/2007 8:05 AM Results for this AND PLATELET CDT procedure are i n the results section. VANCOMYCIN LEVEL Timed 04/22/2007 8:05 AM Resul ts for this CDT procedure are i n the results section. CRP INFLAMMATION Timed 04/22/2007 8:05 AM Resul ts for this CDT procedure are i n the results section. BASIC METABOLIC PANEL Timed 04/22/2007 8:05 AM Results for this CDT procedure are i n the results section. documented in this encounter Results Vancomycin (04/22/2007 12:45 PM CDT) P athologist Signature Vancomycin Level 10.1 mg/L MISYS Comment: Traditional dose therapeutic range: ?Trough: ?? 5 - 10 mg/L ?Peak: ?20 - 40 mg/L Specimen Anatomical Collection Method Collection Time Receive d Time (Source) Location / / Volume Laterality 04/22/2007 12:45 04/22/2007 PM CDT 12:30 PM CDT Provider Unknown LAB - BLOOD ORDERABLES Performing Organization Address City/[facility] Code Phon e Number MISYS Vancomycin (04/22/2007 8:05 AM CDT) athologist Signature Vancomycin Level 40.1 mg/L MISYS Comment: Traditional dose therapeutic range: ?Trough: ?? 5 - 10 mg/L ?Peak: ?20 - 40 mg/L Specimen Anatomical Collection Method Collection Time Receive d Time (Source) Location / / Volume Laterality 04/22/2007 8:05 AM 7 6:00 CDT AM CDT Provider Unknown LAB - BLOOD ORDERABLES Performing Organization Address City/[facility] Code Phon e Number MISYS (ABNORMAL) Hemogram differential and platelet (04/22/2007 8:05 AM CDT) Component Value Ref Test Analysis Performed At [facility] gist Range Method Time Signature MCV 75 70 - 100 MISYS fl MCH 24.3 (L) 26.5 - MISYS 33.0 pg MCHC 32.2 31.5 - MISYS 36.5 g/dL RDW 13.2 10.0 - MISYS 15.0 % WBC 6.4 5.0 - MISYS 14.5 10e9/L RBC Count 4.41 3.7 - MISYS 5.3 10e12/L Hemoglobin 10.7 10.5 - MISYS 14.0 g/dL Hematocrit 33.2 31.5 - MISYS 43.0 % % Neutrophils 37 32 - 54 MISYS % % Lymphocytes 54 27 - 57 MISYS % % Monocytes 4 0 - 10 % MISYS % Eosinophils 3 0 - 6 % MISYS % Basophils 1 0 - 1 % MISYS % Myelocytes 1 (H) 0 % MISYS Platelet Count 388 150 - MISYS 450 10e9/L Absolute 2.4 1.3 - MISYS Neutrophil 8.1 10e9/L Absolute 3.3 1.1 - MISYS Lymphocytes 8.6 10e9/L Absolute 0.3 0.0 - MISYS Monocytes 1.1 10e9/L Absolute 0.2 0.0 - MISYS Eosinophils 0.7 10e9/L Absolute 0.1 0.0 - MISYS Basophils 0.2 10e9/L Absolute 0.1 10e9/L MISYS Myelocytes Platelet Normal MISYS Estimate Diff Method Manual MISYS Differential RBC Morphology Consistent with MISYS reported results Reactive Lymphs Present MISYS Specimen Anatomical Collection Method Collection Time Receive d Time (Source) Location / / Volume Laterality 04/22/2007 8:05 AM 7 6:00 CDT AM CDT Skye Posadas MD LAB - BLOOD ORDERABLES Performing Organization Address City/State/[facility] Code Phon e Number MISYS Basic metabolic panel (04/22/2007 8:05 AM CDT) [facility] gist Method Time Signature Sodium 141 133 - 143 MISYS mmol/L Potassium 4.5 3.4 - 5.3 MISYS mmol/L Chloride 105 96 - 110 MISYS mmol/L Carbon Dioxide 26 20 - 32 MISYS mmol/L Glucose 92 60 - 99 MISYS mg/dL Urea Nitrogen 9 5 - 24 MISYS mg/dL Creatinine 0.47 0.20 - MISYS 0.70 mg/dL GFR Estimate GFR not mL/min/1. MISYS calculated, 7m2 patient <16 years old. GFR Estimate If GFR not mL/min/1. MISYS Black calculated, 7m2 patient <16 years old. Calcium 9.6 8.7 - MISYS 10.8 mg/dL Anion Gap 10 6 - 17 MISYS mmol/L Specimen Anatomical Collection Method Collection Time Receive d Time (Source) Location / / Volume Laterality 04/22/2007 8:05 AM 7 6:00 CDT AM CDT Skye Posadas MD LAB - BLOOD ORDERABLES Performing Organization Address City/State/ZIP Code Phon e Number MISYS (ABNORMAL) CRP inflammation (04/22/2007 8:05 AM CDT) [facility] gist Method Time Signature CRP Inflammation 18.2 (H) 0.0 - 8.0 MISYS mg/L Specimen Anatomical Collection Method Collection Time Receive d Time (Source) Location / / Volume Laterality 04/22/2007 8:05 AM 7 6:00 CDT AM CDT Skye Posadas MD LAB - BLOOD ORDERABLES Performing Organization Address City/State/ZIP Code Phon e Number MISYS documented in this encounter Visit Diagnoses Not on filedocumented in this encounter
--- OUTSIDE RECORDS SUMMARY | 2022-04-28 01:26 | XMS_ITS | Encounter Summary ---
:2000 Author Organization [facility] Address [address] [place] [address]. [place] [address] Care Team Providers Name Role Phone Unavailable Primary Care Provider Unavailable Encounter Details Date Type Department Care Team Description 04/18/2007 Historic Results INTERFACED REPORT [place]iona Posadas [place] [address] [place], [place] [phone] (Wo rk) Social History [...] How often do you attend episcopal or adventist services? Never 09/22/2021 Do you [...] Family [facility] Anthony Doe PABaldo [address] [place], [place] [phone] (Wo rk) 05/03/2022 Office Visit Dermatology Neil Kent M D [address] [place], [place] [phone] (Wo rk) 05/05/2022 Office Visit Optometry Yeny David, OD [address] [facility] [address] [place], [place] [phone] (Wo rk) 05/11/2022 Virtual Visit Pharm D Diana Desir , [facility] [address] [place], [place] [phone] (Wo rk) 05/14/2022 Office Visit Cardiology Livan Sharif MD [address] [facility] , [facility] [address] [place], [place] [phone] (Wo rk) 05/31/2022 Office Visit Family [facility] Valery Veronica PA-C [address] [place], [place] [phone] (Wo rk) documented as of this encounter Procedures Procedure Name Priority Date/Time Associated Comments Diagnosis HEMOGRAM DIFFERENTIAL STAT 04/18/2007 10:10 Re sults for this AND PLATELET PM CDT procedure are i n the results section. BLOOD CULTURE STAT 04/18/2007 10:10 Results fo r this PM CDT procedure are i n the results section. BASIC METABOLIC PANEL STAT 04/18/2007 10:10 Re sults for this PM CDT procedure are i n the results section. ROUTINE UA WITH Routine 04/18/2007 9:35 PM Result s for this MICROSCOPIC CDT procedure are i n the results section. URINE CULTURE Routine 04/18/2007 9:35 PM Results for this CDT procedure are i n the results section. HEMOGRAM DIFFERENTIAL Timed 04/18/2007 8:20 AM Results for this AND PLATELET CDT procedure are i n the results section. ERYTHROCYTE Timed 04/18/2007 8:20 AM Results f or this SEDIMENTATION RATE CDT procedure are in AUTO the results section. CRP INFLAMMATION Timed 04/18/2007 8:20 AM Resul ts for this CDT procedure are i n the results section. BASIC METABOLIC PANEL Timed 04/18/2007 8:20 AM Results for this CDT procedure are i n the results section. documented in this encounter Results (ABNORMAL) Hemogram differential and platelet (04/18/2007 10:10 PM CDT) [facility] gist Method Time Signature MCV 74 70 - 100 MISYS fl MCH 24.5 (L) 26.5 - MISYS 33.0 pg MCHC 33.0 31.5 - MISYS 36.5 g/dL RDW 13.1 10.0 - MISYS 15.0 % WBC 6.3 5.0 - MISYS 14.5 10e9/L RBC Count 4.20 3.7 - 5.3 MISYS 10e12/L Hemoglobin 10.3 (L) 10.5 - MISYS 14.0 g/dL Hematocrit 31.2 (L) 31.5 - MISYS 43.0 % % Neutrophils 69 (H) 32 - 54 % MISYS % Lymphocytes 19 (L) 27 - 57 % MISYS % Monocytes 12 (H) 0 - 10 % MISYS % Eosinophils 0 0 - 6 % MISYS % Basophils 0 0 - 1 % MISYS Platelet Count 194 150 - 450 MISYS 10e9/L Absolute 4.3 1.3 - 8.1 MISYS Neutrophil 10e9/L Absolute 1.2 1.1 - 8.6 MISYS Lymphocytes 10e9/L Absolute 0.8 0.0 - 1.1 MISYS Monocytes 10e9/L Absolute 0.0 0.0 - 0.7 MISYS Eosinophils 10e9/L Absolute 0.0 0.0 - 0.2 MISYS Basophils 10e9/L Diff Method Automated MISYS Method Specimen Anatomical Collection Method Collection Time Receive d Time (Source) Location / / Volume Laterality 04/18/2007 10:10 04/18/2007 9:40 PM CDT PM CDT Skye Posadas MD LAB - BLOOD ORDERABLES Performing Organization Address City/[facility] Code Phon e Number MISYS (ABNORMAL) Basic metabolic panel (04/18/2007 10:10 PM CDT) [facility] [employer] Method Time Signature Sodium 136 133 - 143 MISYS mmol/L Potassium 3.1 (L) 3.4 - 5.3 MISYS mmol/L Chloride 103 96 - 110 MISYS mmol/L Carbon Dioxide 21 20 - 32 MISYS mmol/L Glucose 105 (H) 60 - 99 MISYS mg/dL Urea Nitrogen 9 5 - 24 MISYS mg/dL Creatinine 0.63 0.20 - MISYS 0.70 mg/dL GFR Estimate GFR not mL/min/1. MISYS calculated, 7m2 patient <16 years old. GFR Estimate If GFR not mL/min/1. MISYS Black calculated, 7m2 patient <16 years old. Calcium 8.6 (L) 8.7 - MISYS 10.8 mg/dL Anion Gap 12 6 - 17 MISYS mmol/L Specimen Anatomical Collection Method Collection Time Receive d Time (Source) Location / / Volume Laterality 04/18/2007 10:10 04/18/2007 9:40 PM CDT PM CDT Skye Posadas MD LAB - BLOOD ORDERABLES Performing Organization Address City/[facility] Code Phon e Number MISYS Blood culture (04/18/2007 10:10 PM CDT) [facility] [employer] Method Time Signature Specimen Right Arm MISYS Description Culture Micro No growth MISYS after 6 days Micro Report FINAL MISYS Status [id number] Specimen Anatomical Collection Method Collection Time Receive d Time (Source) Location / / Volume Laterality 04/18/2007 10:10 04/18/2007 9:40 PM CDT PM CDT Skey Posadas MD LAB - MICRO GENERAL ORDERABL ES Performing Organization Address City/[facility] Code Phon e Number MISYS (ABNORMAL) Routine UA with microscopic (04/18/2007 9:35 PM CDT) [facility] Method Time Signature Source Midstream MISYS Urine Color Urine Light Yellow MISYS Appearance Urine Clear MISYS Glucose Urine Negative NEG mg/dL MISYS Bilirubin Urine Negative NEG MISYS Ketones Urine Negative NEG mg/dL MISYS Specific [place] 1.011 1.003 - MISYS Urine 1.035 Blood Urine Trace (A) NEG MISYS pH Urine 6.5 5.0 - 7.0 MISYS pH Protein Albumin 10 (A) NEG mg/dL MISYS Urine Urobilinogen 2.0 0.0 - 2.0 MISYS mg/dL mg/dL Nitrite Urine Negative NEG MISYS Leukocyte Negative NEG MISYS Esterase Urine WBC Urine 8 (H) 0 - 2 MISYS /HPF RBC Urine 4 (H) 0 - 2 MISYS /HPF Squamous <1 0 - 1 MISYS Epithelial /HPF /HPF Urine Renal Tub Epi <1 (A) NEG /HPF MISYS Bacteria Urine Few (A) NEG /HPF MISYS Specimen Anatomical Collection Method Collection Time Receive d Time (Source) Location / / Volume Laterality 04/18/2007 9:35 PM 7 9:40 CDT PM CDT Skye Posadas MD LAB - URINE ORDERABLES Performing Organization Address City/State/ZIP Code Phon e Number MISYS Urine culture (04/18/2007 9:35 PM CDT) [facility] Method Time Signature Specimen Midstream MISYS Description Urine Culture Micro No growth MISYS Micro Report FINAL MISYS Status [id number] Specimen Anatomical Collection Method Collection Time Receive d Time (Source) Location / / Volume Laterality 04/18/2007 9:35 PM 7 9:40 CDT PM CDT Skye Posadas MD LAB - MICRO GENERAL ORDERABL ES Performing Organization Address City/State/ZIP Code Phon e Number MISYS (ABNORMAL) Hemogram differential and platelet (04/18/2007 8:20 AM CDT) [facility] Method Time Signature MCV 74 70 - 100 MISYS fl MCH 24.0 (L) 26.5 - MISYS 33.0 pg MCHC 32.5 31.5 - MISYS 36.5 g/dL RDW 13.1 10.0 - MISYS 15.0 % WBC 5.8 5.0 - MISYS 14.5 10e9/L RBC Count 4.08 3.7 - 5.3 MISYS 10e12/L Hemoglobin 9.8 (L) 10.5 - MISYS 14.0 g/dL Hematocrit 30.2 (L) 31.5 - MISYS 43.0 % % Neutrophils 68 (H) 32 - 54 % MISYS % Lymphocytes 24 (L) 27 - 57 % MISYS % Monocytes 8 0 - 10 % MISYS % Eosinophils 0 0 - 6 % MISYS % Basophils 0 0 - 1 % MISYS Platelet Count 143 (L) 150 - 450 MISYS 10e9/L Absolute 3.9 1.3 - 8.1 MISYS Neutrophil 10e9/L Absolute 1.4 1.1 - 8.6 MISYS Lymphocytes 10e9/L Absolute 0.5 0.0 - 1.1 MISYS Monocytes 10e9/L Absolute 0.0 0.0 - 0.7 MISYS Eosinophils 10e9/L Absolute 0.0 0.0 - 0.2 MISYS Basophils 10e9/L Diff Method Automated MISYS Method Specimen Anatomical Collection Method Collection Time Receive d Time (Source) Location / / Volume Laterality 04/18/2007 8:20 AM 7 8:00 CDT AM CDT Skye Posadas MD LAB - BLOOD ORDERABLES Performing Organization Address City/State/ZIP Code Phon e Number MISYS (ABNORMAL) Basic metabolic panel (04/18/2007 8:20 AM CDT) [facility] gist Method Time Signature Sodium 135 133 - 143 MISYS mmol/L Potassium 3.8 3.4 - 5.3 MISYS mmol/L Chloride 103 96 - 110 MISYS mmol/L Carbon Dioxide 25 20 - 32 MISYS mmol/L Glucose 96 60 - 99 MISYS mg/dL Urea Nitrogen 11 5 - 24 MISYS mg/dL Creatinine 0.61 0.20 - MISYS 0.70 mg/dL GFR Estimate GFR not mL/min/1. MISYS calculated, 7m2 patient <16 years old. GFR Estimate If GFR not mL/min/1. MISYS Black calculated, 7m2 patient <16 years old. Calcium 8.6 (L) 8.7 - MISYS 10.8 mg/dL Anion Gap 7 6 - 17 MISYS mmol/L Specimen Anatomical Collection Method Collection Time Receive d Time (Source) Location / / Volume Laterality 04/18/2007 8:20 AM 7 8:00 CDT AM CDT Skye Posadas MD LAB - BLOOD ORDERABLES Performing Organization Address City/State/ZIP Code Phon e Number MISYS (ABNORMAL) CRP inflammation (04/18/2007 8:20 AM CDT) Patholo gist Method Time Signature CRP Inflammation 82.3 (H) 0.0 - 8.0 MISYS mg/L Specimen Anatomical Collection Method Collection Time Receive d Time (Source) Location / / Volume Laterality 04/18/2007 8:20 AM 7 8:00 CDT AM CDT Skye Posadas MD LAB - BLOOD ORDERABLES Performing Organization Address City/[facility] Code Phon e Number MISYS (ABNORMAL) Erythrocyte sedimentation rate auto (04/18/2007 8:20 AM CDT) P athologist Signature Sed Rate 39 (H) 0 - 15 mm/h MISYS Specimen Anatomical Collection Method Collection Time Receive d Time (Source) Location / / Volume Laterality 04/18/2007 8:20 AM 7 8:00 CDT AM CDT Skye Posadas MD LAB - BLOOD ORDERABLES Performing Organization Address City/State/[facility] Code Phon e Number MISYS documented in this encounter Visit Diagnoses Not on filedocumented in this encounter
--- OUTSIDE RECORDS SUMMARY | 2022-04-28 01:26 | XMS_ITS | Encounter Summary ---
:2000 Author Organization [facility] Address [address] [place] [address] Care Team Providers Name Role Phone Unavailable Primary Care Provider Unavailable Encounter Details Date Type Department Care Team Description 04/20/2007 Admission H&P Benjamin Posadas MD (Pharmacist'S Aide) [facility] [address] [place], [place] [address] (Wo rk) Social History [...] How often do you attend confucianism or evangelical services? Never 09/22/2021 Do you [...] documented as of this encounter Progress Notes Benjamin Rojas - 2007 11:01 PM CDT FINAL HISTORY OF PRESENT ILLNESS: Kim Johnson is a 6-year-old who was admitted with pyelonephritis. I have noticed that she gradually improving. Her IV antibiotics were changed to Fortaz and vancomycin when it became apparent that we could not trust the original urine culture that was obtained at an outside source. During the course of the past 24 hours, she has had several temperature spikes, but is improved in the fact that they have not been as high as 105. In addition, her CRP is continuing to drop, and she herself, while not eating very well, seems much more energetic, is now doing crafts and trying to at least pick at her food. She does report some mild dysuria still, but otherwise review of systems is negative. PHYSICAL EXAMINATION: HEENT: Atraumatic, normocephalic. TMs are clear and mobile bilaterally. PERRLA. Extraocular movements intact. Nasal mucosa clear. Posterior pharynx is clear. LUNGS: Clear to auscultation. HEART: Regular rhythm, S1, S2 without murmur. ABDOMEN: Soft, positive bowel sounds, nondistended, nontender. Liver at the right costal margin, mid clavicular line. Spleen not palpable. SKIN: Negative. ASSESSMENT: Pyelonephritis. PLAN: Continue the intravenous vancomycin and Fortaz. A trough was done at noon, which was slightlyhigh, which Pharmacy is going to correct. Since she is now improving, will consider trying to anticipate discharge planning, although she would have to be afebrile for a minimum of 24 hours. I will consult Dr. Eloy Castro tomorrow if indeed it appears that she is improved sufficiently enough that even discharge is remotely within sight. Electronically signed on 2007 23:00 by BENJAMIN ROJAS MD MT: [id number] Name: KMI JOHNSON MRN: [id number] Account: [id number] : 2000 Admitted: [id number] Document: [id number] documented in this encounter Plan of Treatment Upcoming Encounters Date Type Specialty Care Team Description 04/28/2022 Office Visit Family Practice Anthony Doe, PA-C [address] [place], [place] [phone] (Wo rk) 05/03/2022 Office Visit Dermatology Neil Kent M D [address] [place], [place] [phone] (Wo rk) 05/05/2022 Office Visit Optometry Yeny David, OD [address] [facility] [address] [place] [phone] (Wo rk) 05/11/2022 Virtual Visit Pharm D Diana Desir , [facility] [address] [place], [place] [phone] (Wo rk) 05/14/2022 Office Visit Cardiology Livan Sharif MD [address] [facility] [address] [place], [place] [phone] (Wo rk) 05/31/2022 Office Visit Family Practice Valery Veronica , [facility] [address] [place] [address] (Wo rk) documented as of this encounter Visit Diagnoses Not on filedocumented in this encounter
--- OUTSIDE RECORDS SUMMARY | 2022-04-28 01:26 | XMS_ITS | Encounter Summary ---
:2000 Author Organization [facility] Address [address] [place] [address] Care Team Providers Name Role Phone Unavailable Primary Care Provider Unavailable Encounter Details Date Type Department Care Team Description 04/20/2007 Historic Results INTERFACED REPORT Unknown, Provider Social [...] How often do you attend temple or rastafarian services? Never 09/22/2021 Do you [...] Office Visit Family Practice Anthony Doe, ROVERTO [address] [place], [place] [phone] (Wo rk) 05/03/2022 Office Visit Dermatology Neil Kent M D [address] [place], [place] [phone] (Wo rk) 05/05/2022 Office Visit Optometry Yeny David, OD [address] [facility] [address] [place], [place] [phone] (Wo rk) 05/11/2022 Virtual Visit Pharm D Diana Desir , [facility] [address] [place], [place] [phone] (Wo rk) 05/14/2022 Office Visit Cardiology Livan Sharif MD [address] [facility] [address] [place], [place] [phone] (Wo rk) 05/31/2022 Office Visit [facility] Valery Veronica PA-C [address] [place], [place] [phone] (Wo rk) documented as of this encounter Procedures Procedure Name Priority Date/Time Associated Comments Diagnosis VANCOMYCIN LEVEL Timed 04/20/2007 12:00 Results for this PM CDT procedure are i n the results section. HEMOGRAM DIFFERENTIAL Timed 04/20/2007 8:35 AM Results for this AND PLATELET CDT procedure are i n the results section. CRP INFLAMMATION Timed 04/20/2007 8:35 AM Resul ts for this CDT procedure are i n the results section. BASIC METABOLIC PANEL Timed 04/20/2007 8:35 AM Results for this CDT procedure are i n the results section. documented in this encounter Results Vancomycin (04/20/2007 12:00 PM CDT) P athologist Signature Vancomycin Level 10.3 mg/L MISYS Comment: Traditional dose therapeutic range: ?Trough: ?? 5 - 10 mg/L ?Peak: ?20 - 40 mg/L Specimen Anatomical Collection Method Collection Time Receive d Time (Source) Location / / Volume Laterality 04/20/2007 12:00 04/20/2007 PM CDT 12:00 PM CDT Provider Unknown LAB - BLOOD ORDERABLES Performing Organization Address City/State/ZIP Code Phon e Number MISYS (ABNORMAL) Hemogram differential and platelet (04/20/2007 8:35 AM CDT) Component Value Ref Test Analysis Performed At Patholo gist Range Method Time Signature MCV 74 70 - 100 MISYS fl MCH 24.3 (L) 26.5 - MISYS 33.0 pg MCHC 32.7 31.5 - MISYS 36.5 g/dL RDW 13.2 10.0 - MISYS 15.0 % WBC 5.4 5.0 - MISYS 14.5 10e9/L RBC Count 4.36 3.7 - MISYS 5.3 10e12/L Hemoglobin 10.6 10.5 - MISYS 14.0 g/dL Hematocrit 32.4 31.5 - MISYS 43.0 % % Neutrophils 48 32 - 54 MISYS % % Lymphocytes 44 27 - 57 MISYS % % Monocytes 8 0 - 10 % MISYS Platelet Count 244 150 - MISYS 450 10e9/L Absolute 2.6 1.3 - MISYS Neutrophil 8.1 10e9/L Absolute 2.4 1.1 - MISYS Lymphocytes 8.6 10e9/L Absolute 0.4 0.0 - MISYS Monocytes 1.1 10e9/L Platelet Normal MISYS Estimate Diff Method Manual MISYS Differential Comment: Slide to be reviewed by Pathologist Slide reviewed by Pathologist Dr. Romy Tidwell 04.20.07 [facility] RBC Morphology Consistent with reported results MISYS Reactive Lymphs Present MISYS Smudge Cells Present MISYS Specimen Anatomical Collection Method Collection Time Receive d Time (Source) Location / / Volume Laterality 04/20/2007 8:35 AM 7 8:00 CDT AM CDT Skye Posadas MD LAB - BLOOD ORDERABLES Performing Organization Address City/[facility]/ZIP Code Phon e Number MISYS (ABNORMAL) Basic metabolic panel (04/20/2007 8:35 AM CDT) [facility] Method Time Signature Sodium 138 133 - 143 MISYS mmol/L Potassium 3.7 3.4 - 5.3 MISYS mmol/L Chloride 101 96 - 110 MISYS mmol/L Carbon Dioxide 26 20 - 32 MISYS mmol/L Glucose 92 60 - 99 MISYS mg/dL Urea Nitrogen 4 (L) 5 - 24 MISYS mg/dL Creatinine 0.47 0.20 - MISYS 0.70 mg/dL GFR Estimate GFR not mL/min/1. MISYS calculated, 7m2 patient <16 years old. GFR Estimate If GFR not mL/min/1. MISYS Black calculated, 7m2 patient <16 years old. Calcium 9.2 8.7 - MISYS 10.8 mg/dL Anion Gap 11 6 - 17 MISYS mmol/L Specimen Anatomical Collection Method Collection Time Receive d Time (Source) Location / / Volume Laterality 04/20/2007 8:35 AM 7 8:00 CDT AM CDT Skye Posadas MD LAB - BLOOD ORDERABLES Performing Organization Address City/[facility] Phon e Number MISYS (ABNORMAL) CRP inflammation (04/20/2007 8:35 AM CDT) [facility] Method Time Signature CRP Inflammation 48.0 (H) 0.0 - 8.0 MISYS mg/L Specimen Anatomical Collection Method Collection Time Receive d Time (Source) Location / / Volume Laterality 04/20/2007 8:35 AM 7 8:00 CDT AM CDT Skye Posadas MD LAB - BLOOD ORDERABLES Performing Organization Address City/[facility]/ZIP Code Phon e Number MISYS documented in this encounter Visit Diagnoses Not on filedocumented in this encounter
--- OUTSIDE RECORDS SUMMARY | 2022-04-28 01:26 | XMS_ITS | Encounter Summary ---
:2000 Author Organization [facility] Address [address] [place] [address] Care Team Providers Name Role Phone Unavailable Primary Care Provider Unavailable Encounter Details Date Type Department Care Team Description 04/17/2007 Historic Results INTERFACED REPORT Tadeo Bean MD EMERGENCY PHYSIC [place] [address] [place], [place] [address] (Wo rk) Social History [...] How often do you attend islam or scientologist services? Never 09/22/2021 Do you [...] Office Visit Family Practice Anthony Doe, PAUcheC [address] [place], [place] [phone] (Wo rk) 05/03/2022 Office Visit Dermatology Neil Kent M D [address] [place] [address] (Wo rk) 05/05/2022 Office Visit Optometry Yeny David, OD [address] [facility] [place] [address] (Wo rk) 05/11/2022 Virtual Visit Pharm D Diana Desir , [facility] [address] [place], [place] [phone] (Wo rk) 05/14/2022 Office Visit Cardiology Livan Sharif MD [address] [facility] [address] [place], [place] [phone] (Wo rk) 05/31/2022 Office Visit Family [facility] Valery Veronica PA-C [address] [place], [place] [phone] (Wo rk) documented as of this encounter Procedures Procedure Name Priority Date/Time Associated Comments Diagnosis BLOOD CULTURE STAT 04/17/2007 4:02 PM Results for this CDT procedure are i n the results section. HEMOGRAM DIFFERENTIAL STAT 04/17/2007 3:40 PM Results for this AND PLATELET CDT procedure are i n the results section. ERYTHROCYTE Routine 04/17/2007 3:40 PM Results f or this SEDIMENTATION RATE CDT procedure are in AUTO the results section. CRP INFLAMMATION Routine 04/17/2007 3:40 PM Resul ts for this CDT procedure are i n the results section. BLOOD CULTURE STAT 04/17/2007 3:40 PM Results for this CDT procedure are i n the results section. BASIC METABOLIC PANEL STAT 04/17/2007 3:40 PM Results for this CDT procedure are i n the results section. documented in this encounter Results Blood culture (04/17/2007 4:02 PM CDT) [facility] Method Time Signature Specimen Right Arm MISYS Description Culture Micro No growth MISYS after 6 days Micro Report FINAL MISYS Status [id number] Specimen Anatomical Collection Method Collection Time Receive d Time (Source) Location / / Volume Laterality 04/17/2007 4:02 PM 7 3:32 CDT PM CDT Tadeo Bean MD LAB - MICRO GENERAL ORDERABL ES Performing Organization Address City/State/ZIP Code Phon e Number MISYS (ABNORMAL) Hemogram differential and platelet (04/17/2007 3:40 PM CDT) Component Value Ref Test Analysis Performed At [facility] Range Method Time Signature MCV 74 70 - 100 MISYS fl MCH 24.8 (L) 26.5 - MISYS 33.0 pg MCHC 33.7 31.5 - MISYS 36.5 g/dL RDW 13.0 10.0 - MISYS 15.0 % WBC 12.1 5.0 - MISYS 14.5 10e9/L RBC Count 4.56 3.7 - MISYS 5.3 10e12/L Hemoglobin 11.3 10.5 - MISYS 14.0 g/dL Hematocrit 33.5 31.5 - MISYS 43.0 % % Neutrophils 83 (H) 32 - 54 MISYS % % Lymphocytes 10 (L) 27 - 57 MISYS % % Monocytes 7 0 - 10 % MISYS % Eosinophils 0 0 - 6 % MISYS % Basophils 0 0 - 1 % MISYS Platelet Count 167 150 - MISYS 450 10e9/L Absolute 10.1 (H) 1.3 - MISYS Neutrophil 8.1 10e9/L Absolute 1.2 1.1 - MISYS Lymphocytes 8.6 10e9/L Absolute Monocytes 0.8 0.0 - MISYS 1.1 10e9/L Absolute 0.0 0.0 - MISYS Eosinophils 0.7 10e9/L Absolute Basophils 0.0 0.0 - MISYS 0.2 10e9/L Platelet Estimate Normal MISYS Diff Method Automated MISYS Method Poikilocytosis Slight MISYS Ovalocytes Slight MISYS Specimen Anatomical Collection Method Collection Time Receive d Time (Source) Location / / Volume Laterality 04/17/2007 3:40 PM 7 3:32 CDT PM CDT Tadeo Bean MD LAB - BLOOD ORDERABLES Performing Organization Address City/[facility] Phon e Number MISYS (ABNORMAL) Basic metabolic panel (04/17/2007 3:40 PM CDT) [facility] Method Time Signature Sodium 134 133 - 143 MISYS mmol/L Potassium 4.1 3.4 - 5.3 MISYS mmol/L Chloride 100 96 - 110 MISYS mmol/L Carbon Dioxide 21 20 - 32 MISYS mmol/L Glucose 82 60 - 99 MISYS mg/dL Urea Nitrogen 18 5 - 24 MISYS mg/dL Creatinine 0.76 (H) 0.20 - MISYS 0.70 mg/dL GFR Estimate GFR not mL/min/1. MISYS calculated, 7m2 patient <16 years old. GFR Estimate If GFR not mL/min/1. MISYS Black calculated, 7m2 patient <16 years old. Calcium 9.5 8.7 - MISYS 10.8 mg/dL Anion Gap 13 6 - 17 MISYS mmol/L Specimen Anatomical Collection Method Collection Time Receive d Time (Source) Location / / Volume Laterality 04/17/2007 3:40 PM 7 3:32 CDT PM CDT Tadeo Bean MD LAB - BLOOD ORDERABLES Performing Organization Address City/[facility] Phon e Number MISYS (ABNORMAL) CRP inflammation (04/17/2007 3:40 PM CDT) [facility] Method Time Signature CRP Inflammation 173.9 (H) 0.0 - 8.0 MISYS mg/L Comment: Specimen run with a dilution Specimen Anatomical Collection Method Collection Time Receive d Time (Source) Location / / Volume Laterality 04/17/2007 3:40 PM 7 4:50 CDT PM CDT Tadeo Bean MD LAB - BLOOD ORDERABLES Performing Organization Address City/[facility] Phon e Number MISYS (ABNORMAL) Erythrocyte sedimentation rate auto (04/17/2007 3:40 PM CDT) P athologist Signature Sed Rate 30 (H) 0 - 15 mm/h MISYS Specimen Anatomical Collection Method Collection Time Receive d Time (Source) Location / / Volume Laterality 04/17/2007 3:40 PM 7 4:50 CDT PM CDT Tadeo Bean MD LAB - BLOOD ORDERABLES Performing Organization Address [facility] Phon e Number MISYS Blood culture (04/17/2007 3:40 PM CDT) Patholo gist Method Time Signature Specimen Left Arm MISYS Description Culture Micro No growth MISYS after 6 days Micro Report FINAL MISYS Status [id number] Specimen Anatomical Collection Method Collection Time Receive d Time (Source) Location / / Volume Laterality 04/17/2007 3:40 PM 7 3:32 CDT PM CDT aTdeo Bean MD LAB - MICRO GENERAL ORDERABL ES Performing Organization Address [facility] Phon e Number MISYS documented in this encounter Visit Diagnoses Not on filedocumented in this encounter
--- OUTSIDE RECORDS SUMMARY | 2022-04-28 01:27 | XMS_ITS | Encounter Summary ---
:2000 Author Organization [facility] Address [address] [place] [address] Care Team Providers Name Role Phone Unavailable Primary Care Provider Unavailable Encounter Details Date Type Department Care Team Description 12/31/2005 Historic Results INTERFACED REPORT Kieth Cheng MD EMERGENCY PHYSIC [place] [address] [place], [place] [address] (Wo rk) Social History [...] How often do you attend quaker or anabaptism services? Never 09/22/2021 Do you [...] Office Visit Family Practice Anthony Doe PAUcheC [address] [place], [place] [phone] (Wo rk) 05/03/2022 Office Visit Dermatology Neil Kent M D [address] [place], [place] [phone] (Wo rk) 05/05/2022 Office Visit Optometry Yeny David, OD [address] [facility] [address] [place], [place] [phone] (Wo rk) 05/11/2022 Virtual Visit Pharm D Diana Desir , [facility] [address] [place], [place] [phone] (Wo rk) 05/14/2022 Office Visit Cardiology Livan Sharif MD [address] [facility] [address] [place], [place] [phone] (Wo rk) 05/31/2022 Office Visit Family Practice Valery Veronica PA-C [address] [place], [place] [phone] (Wo rk) documented as of this encounter Procedures Procedure Name Priority Date/Time Associated Comments Diagnosis BASIC METABOLIC PANEL Timed 12/31/2005 1:10 PM Results for this CDT procedure are i n the results section. ROUTINE UA WITH STAT 12/31/2005 12:50 Results for this MICROSCOPIC AM CDT procedure are i n the results section. URINE CULTURE STAT 12/31/2005 12:50 Results fo r this AM CDT procedure are i n the results section. HEMOGRAM DIFFERENTIAL STAT 12/31/2005 12:45 Re sults for this AND PLATELET AM CDT procedure are i n the results section. BASIC METABOLIC PANEL STAT 12/31/2005 12:45 Re sults for this AM CDT procedure are i n the results section. documented in this encounter Results Basic metabolic panel (12/31/2005 1:10 PM CDT) [facility] Method Time Signature Sodium 138 133 - 143 MISYS mmol/L Potassium 4.1 3.4 - 5.3 MISYS mmol/L Chloride 107 96 - 110 MISYS mmol/L Carbon Dioxide 22 20 - 32 MISYS mmol/L Glucose 93 60 - 110 MISYS mg/dL Urea Nitrogen 10 5 - 24 MISYS mg/dL Creatinine 0.60 0.20 - MISYS 0.70 mg/dL GFR Estimate GFR not mL/min/1. MISYS calculated, 7m2 patient <16 years old. GFR Estimate If GFR not mL/min/1. MISYS Black calculated, 7m2 patient <16 years old. Calcium 9.2 8.7 - MISYS 10.8 mg/dL Anion Gap 9 6 - 17 MISYS mmol/L Specimen Anatomical Collection Method Collection Time Receive d Time (Source) Location / / Volume Laterality 12/31/2005 1:10 PM 6 1:00 CDT PM CDT Yanely Doss MD LAB - BLOOD ORDERABLES Performing Organization Address City/State/ZIP Code Phon e Number MISYS (ABNORMAL) Routine UA with microscopic (12/31/2005 12:50 AM CDT) [facility] Method Time Signature Source Midstream MISYS Urine Color Urine Yellow MISYS Appearance Urine Slightly MISYS Cloudy Glucose Urine Negative NEG mg/dL MISYS Bilirubin Urine Negative NEG MISYS Ketones Urine Negative NEG mg/dL MISYS Specific [place] 1.013 1.003 - MISYS Urine 1.035 Blood Urine Trace (A) NEG MISYS pH Urine 5.5 5.0 - 7.0 MISYS pH Protein Albumin Negative NEG mg/dL MISYS Urine Urobilinogen Normal 0.0 - 2.0 MISYS mg/dL mg/dL Nitrite Urine Positive (A) NEG MISYS Leukocyte Moderate (A) NEG MISYS Esterase Urine WBC Urine 139 (H) 0 - 2 MISYS /HPF RBC Urine 6 (H) 0 - 2 MISYS /HPF Squamous <1 0 - 1 MISYS Epithelial /HPF /HPF Urine Renal Tub Epi <1 (A) NEG /HPF MISYS Bacteria Urine Moderate (A) NEG /HPF MISYS WBC Clumps Present (A) NEG /HPF MISYS Mucous Urine Present (A) NEG /LPF MISYS Specimen Anatomical Collection Method Collection Time Receive d Time (Source) Location / / Volume Laterality 12/31/2005 12:50 12/31/2005 AM CDT 12:25 AM CDT Rey Cheng MD LAB - URINE ORDERABLES Performing Organization Address City/State/ZIP Code Phon e Number MISYS Urine culture (12/31/2005 12:50 AM CDT) [facility] Method Time Signature Specimen Midstream Urine MISYS Description Culture Micro >100,000 MISYS colonies/mL Escherichia coli Micro Report FINAL [id number] MISYS Status Specimen Anatomical Collection Method Collection Time Receive d Time (Source) Location / / Volume Laterality 12/31/2005 12:50 12/31/2005 AM CDT 12:25 AM CDT Organism Antibiotic Method Susceptibility >100,000 colonies/ml Ampicillin <=2 Suscept ible escherichia coli (chris) >100,000 colonies/ml Amoxicillin/Clav <=2 Suscep tible escherichia coli (chris) >100,000 colonies/ml Ceftriaxone <=1 Suscept ible escherichia coli (chris) >100,000 colonies/ml Cefazolin <=4 Suscept ible escherichia coli (chris) >100,000 colonies/ml Ciprofloxacin <=0.25 Susc eptible escherichia coli (chris) >100,000 colonies/ml Nitrofurantoin <=16 Suscep tible escherichia coli (chris) >100,000 colonies/ml Gentamicin <=1 Suscept ible escherichia coli (chris) >100,000 colonies/ml Levofloxacin <=0.25 Susc eptible escherichia coli (chris) >100,000 colonies/ml Trimethoprim/Sulfamethoxazole <=1/19 Susceptible escherichia coli (chris) >100,000 colonies/ml Ticarcillin <=8 Suscept ible escherichia coli (chris) >100,000 colonies/ml Ticarcillin/Clav <=8 Suscep tible escherichia coli (chris) >100,000 colonies/ml Tobramycin <=1 Suscept ible escherichia coli (chris) >100,000 colonies/ml Cefuroxime Axetil 4 Suscept ible escherichia coli (chris) Rey Cheng MD LAB - MICRO GENERAL ORDERABL ES Performing Organization Address City/State/ZIP Code Phon e Number MISYS (ABNORMAL) Hemogram differential and platelet (12/31/2005 12:45 AM CDT) [facility] Method Time Signature MCV 73 70 - 100 MISYS fl MCH 23.7 (L) 26.5 - MISYS 33.0 pg MCHC 32.6 32.0 - MISYS 36.0 g/dL RDW 12.3 10.0 - MISYS 15.0 % WBC 14.7 (H) 5.0 - MISYS 14.5 10e9/L RBC Count 4.91 3.7 - 5.3 MISYS 10e12/L Hemoglobin 11.6 10.5 - MISYS 14.0 g/dL Hematocrit 35.7 31.5 - MISYS 43.0 % % Neutrophils 82 (H) 15 - 44 % MISYS % Lymphocytes 10 (L) 45 - 76 % MISYS % Monocytes 7 0 - 10 % MISYS % Eosinophils 1 0 - 6 % MISYS % Basophils 0 0 - 1 % MISYS Platelet Count 314 150 - 450 MISYS 10e9/L Absolute 12.1 (H) 0.8 - 7.7 MISYS Neutrophil 10e9/L Absolute 1.5 (L) 2.3 - MISYS Lymphocytes 13.3 10e9/L Absolute 1.0 0.0 - 1.1 MISYS Monocytes 10e9/L Absolute 0.1 0.0 - 0.7 MISYS Eosinophils 10e9/L Absolute 0.0 0.0 - 0.2 MISYS Basophils 10e9/L Diff Method Automated MISYS Method Specimen Anatomical Collection Method Collection Time Receive d Time (Source) Location / / Volume Laterality 12/31/2005 12:45 12/31/2005 AM CDT 12:25 AM CDT Rey Cheng MD LAB - BLOOD ORDERABLES Performing Organization Address City/State/ZIP Code Phon e Number MISYS Basic metabolic panel (12/31/2005 12:45 AM CDT) [facility]ist Method Time Signature Sodium 139 133 - 143 MISYS mmol/L Potassium 4.4 3.4 - 5.3 MISYS mmol/L Chloride 103 96 - 110 MISYS mmol/L Carbon Dioxide 23 20 - 32 MISYS mmol/L Glucose 100 60 - 110 MISYS mg/dL Urea Nitrogen 10 5 - 24 MISYS mg/dL Creatinine 0.50 0.20 - MISYS 0.70 mg/dL GFR Estimate GFR not mL/min/1. MISYS calculated, 7m2 patient <16 years old. GFR Estimate If GFR not mL/min/1. MISYS Black calculated, 7m2 patient <16 years old. Calcium 9.4 8.7 - MISYS 10.8 mg/dL Anion Gap 12 6 - 17 MISYS mmol/L Specimen Anatomical Collection Method Collection Time Receive d Time (Source) Location / / Volume Laterality 12/31/2005 12:45 12/31/2005 AM CDT 12:25 AM CDT Rey Cheng MD LAB - BLOOD ORDERABLES Performing Organization Address City/State/ZIP Code Phon e Number MISYS documented in this encounter Visit Diagnoses Not on filedocumented in this encounter
--- OUTSIDE RECORDS SUMMARY | 2022-04-28 01:27 | XMS_ITS | Encounter Summary ---
:2000 Author Organization [facility] Address [address] [place] [address]. [place] [address] Care Team Providers Name Role Phone Unavailable Primary Care Provider Unavailable Reason for Visit Reason Comments Cough severe cough for a few days Encounter Details Date Type Department Care Team Description 10/15/2004 Office Visit [facility] Rey Vazquez, [facility] Kalee Pickard MD (Primary Dx) [address] [place], [place] SERVICE [address] [address] [facility] [phone] [address] [place], [place] [address] (Wo rk) Social History Tobacco Use Types [...] How often do you attend cheondoism or rastafarian services? Never 09/22/2021 Do you [...] Taken Comments Blood Pressure - - Pulse 88 10/15/2004 11:15 AM CDT Temperature 36.8 ??C (98.2 ??F) 10/15/2004 11:15 AM CDT Respiratory Rate 20 10/15/2004 11:15 AM CDT Oxygen Saturation - - Inhaled Oxygen Concentration - - Weight 29.3 kg (64 lb 8 oz) 10/15/2004 11:15 AM CDT Height 112.4 cm (3' 8.25) 10/15/2004 11:15 AM CDT Ahvmaq-urr-Vlhclv Percentile 99.38 % 10/15/2004 11:15 AM CDT Growth Chart: [facility] (Girls, 2-20 Years) Body Mass Index 23.16 10/15/2004 11:15 AM CDT Body Mass Index Percentile 99.78 % 10/15/2004 11:15 AM C DT Growth Chart: [facility] (Girls, 2-20 Years) documented in this encounter Progress Notes Rey Vazquez - 10/15/2004 11:45 AM CDT SUBJECTIVE: Kim is a 4 year old female presenting with cough occasional, productive clear, ear pain both and sore throat. Onset of symptoms was 6 days ago. Course of illness is unchanged. Treatment measures tried include fluids and OTC meds. Predisposing factors include None. Previous Medical History: None on file No active medications on file as of 10/15/2004 OBJECTIVE: General appearance: alert and no apparent distress Skin color is pink Hydration status appears adequate with normal skin turgor and moist mucous membranes. HEENT: Conjunctiva are not injected without discharge. Left TM is normal: no effusions, no erythema, and normal landmarks. Right TM is normal: no effusions, no erythema, and normal landmarks. Nasal mucosa is normal. Oropharyngeal exam is erythematous. Neck is supple with no adenopathy CARDIAC:NORMAL - regular rate and rhythm without murmur. RESP: Normal - CTA without rales, rhonchi, or wheezing. ABDOMEN: Abdomen soft, non-tender. BS normal. No masses, organomegaly CXR Findings: Not Done ASSESSMENT: Upper respiratory infection PLAN: Cool mist vaporizer, OTC cough suppressant/expectorant, OTC decongestant/antihistamine and Rx: as per [facility] Follow up only if unimproved. documented in this encounter Nursing Notes 10/15/2004 11:15 AM CDT >> FREDI ZAMBRANO 10/15/2004 11:23 am Kim Johnson presents for cough for a few days. Initial Temp (Src) 98.2 (Axillary) Ht 3' 8.25 (1.12m) Wt 64 lbs 8.0 oz (29.3kg) Body Mass Indexis 23.16 kg/(m^2). . BP completed using cuff size: NA (Not Taken). Fredi Zambrano LPN documented in this encounter Plan of Treatment Upcoming Encounters Date Type Specialty Care Team Description 04/28/2022 Office Visit Family Practice Anthony Doe, ROVERTO [address] [place], [place] [phone] (Jefferson carlson) 05/03/2022 Office Visit Dermatology Neil Kent M D [address] [place], [place] [phone] (Jefferson carlson) 05/05/2022 Office Visit Optometry Yeny David, OD [address] [facility] [place] [phone] (Jefferson carlson) 05/11/2022 Virtual Visit Pharm D Diana Desir , [facility] [address] [place], [place] [phone] (Jefferson carlson) 05/14/2022 Office Visit Cardiology Livan Sharif MD [address] [place], [place] [phone] (Wo rk) 05/31/2022 Office Visit Family Practice Valery Veronica PA-C [address] [place] [address] ([place]erson carlson) documented as of this encounter Visit Diagnoses Diagnosis Acute upper respiratory infections of un specified site - Primary documented in this encounter
--- OUTSIDE RECORDS SUMMARY | 2022-04-28 01:27 | XMS_ITS | Clinical Summary ---
:2000 Author Organization [facility] Address [address] [place] [address] Phone Care Team Providers Name Role Phone Unavailable Primary Care Provider Unavailable Allergies No known active allergies Medications Medication Sig Dispensed Refills Start Date End Date Status sertraline (ZOLOFT) Take 100 mg by 0 Active 100 MG tablet mouth one time a day. naproxen (NAPROSYN) Take 500 mg by 0 Active 500 MG tablet mouth two times a day as needed for Pain. Take with food. Social History Tobacco Use Types Packs/Day Years Used Date Never Smoker Alcohol Use Standard Drinks/Week Comments No 0 (1 standard drink = 0.6 oz pure alcoho l) Sex Assigned at Date Recorded Not on file Obstetrics History Last Filed Vital Signs Vital Sign Reading Time Taken Comments Blood Pressure 128/76 03/15/2016 1:30 AM CDT Pulse 74 03/15/2016 1:30 AM CDT Temperature 36.4 ??C (97.6 ??F) 03/15/2016 12:30 AM CDT Respiratory Rate 14 03/15/2016 1:30 AM CDT Oxygen Saturation 98% 03/15/2016 1:30 AM CDT Inhaled Oxygen Concentration - - Weight - - Height - - Body Mass Index - - Plan of Treatment Not on file Insurance Payer Benefit Plan Subscriber ID Effective Phone Address Typ e / Group Dates BCBS OTHER BCBS OTHER [id number] 2019-Prese [address] [place] [address]
--- OUTSIDE RECORDS SUMMARY | 2022-04-28 01:27 | XMS_ITS | Encounter Summary ---
:2000 Author Organization [facility] Address [address] [place] [address] Care Team Providers Name Role Phone Unavailable Primary Care Provider Unavailable Encounter Details Date Type Department Care Team Description 04/16/2007 Emergency room Nava Yanez MD EMERGENCY PHYSIC [facility] [address] [employer] [address] [place], [place] [phone] (Wo rk) Social History Tobacco Use Types [...] How often do you attend advent or yazdanism services? Never 09/22/2021 Do you [...] as of this encounter Progress Notes Interface, Medical Reimbursement Manager - 06/28/2007 11:03 PM PLASTIC MOLDING OPERATOR FINAL CHIEF COMPLAINT: Fever. HISTORY OF PRESENT ILLNESS: This 6-year-old comes to emergency department with her mom and dad and an older sibling. She has been having a problem with a high fever which started basically today and alittle bit yesterday. She has actually been having some urinary complaints and was started yesterdayon Bactrim. She has a history of reflux and UTIs. Most significant was the hospitalization last year for 6 days for IV antibiotics. She had high fevers and kind of similar symptoms at that time. Patient says it hurts a little bit when she pees but otherwise no significant pain in her abdomen, althoughshe had a little bit of left kind of mid abdominal pain earlier. She denies any back pain. She has vomited a couple times and has some diarrhea. In addition, her father had a little bit of stomach upset but not to this extent yesterday; but otherwise there are no sick exposures. No cough or troubles breathing, no sore throat or other complaints. Concerns include pyelonephritis. MEDICATIONS: Tylenol, Bactrim. ALLERGIES: None. PAST MEDICAL HISTORY: Remarkable for reflux and pyelonephritis. FAMILY HISTORY: Noncontributory. SOCIAL HISTORY: Stable. REVIEW OF SYSTEMS: As discussed above pertinent things. All other systems are negative. PHYSICAL EXAMINATION: GENERAL: She is alert and oriented in ninp-ht-lvmldnbi amount of distress when I see her. VITAL SIGNS: Temperature 103.1, respiratory rate 20, pulse 152, O2 sats 98%. Weight 38 kilos. HEENT: Pupils are equal and reactive to light. Extraocular movements are full and intact. There is no icterus or pallor. Nose, mouth and oropharynx is normal. No oral sores. NECK, SPINE AND BACK: Normal. CHEST: Rise equal. LUNGS: Sounds are clear. HEART: Sounds normal S1, S2. I do not hear any murmurs, rubs or gallops. Pulses are symmetric and strong. ABDOMEN: Soft, nontender and nondistended at this time on the left side. There is no other mass or organomegaly. GENITOURINARY AND RECTAL: Inspected by mother, reported to show no signs of other problems. EXTREMITIES: Extremities x4 normal. SKIN: Normal. PSYCHIATRIC: Normal. LYMPHATICS: Normal. NEUROLOGIC: Normal. The rest of physical exam is really all unremarkable. She has no CVA tenderness on repeat exams. EMERGENCY DEPARTMENT DIAGNOSTICS: Urinalysis that shows 10 ketones, 100 protein, small blood, smallleukocyte esterase, 46 white cells, 18 red cells, many bacteria. No squamous or transitional cells. Urine culture is pending. Urine culture was unable to be obtained yesterday because of the scant amount of urine. I see a note from 01/29 with susceptibilities pending on a urine culture, otherwise she had E. coli back in 12/2005, which was susceptible to Bactrim. EMERGENCY DEPARTMENT COURSE: This is a 6-year-old who presents with a history of UTI and now a highfever. She is concerned for pyelonephritis which she has had before and based on her evaluation here, my concern includes dehydration, early pyelonephritis. I do not find any evidence for urosepsis or anything else to explain her fever. She seems to have the UTI with history of the same. There are no signs of any respiratory, oropharyngeal or other abdominal processes, infected joints or other problems. It is possible this is also a coincidental GI, like viral infection gastroenteritis given her father's complaint but I think this is unlikely. In terms of her department management here, it was busy when they first present so therefore EMLA was applied for potential IV site. She received some Tylenol and then some Motrin which brings her fever down. Tylenol at home was not affecting her fevers andin the past, she seemed to get more dehydrated when her fevers came up as she did not want to drink at that time. I discussed then with the family the IV hydration here. She is taking p.o. well, her fever breaks and she is feeling much more comfortable. She wants to go home and eat and at this point, I do not think she needs an IV as she is taking p.o. Instead what we will do is give her prescriptionfor Zofran. Given some other concerns will leave EMLA in place until she goes to bed tonight so thatif she needs to return, she can have an IV placed and hopefully this will still be effective, it probably, depending on the timeline, may be wearing off, however. They will have a recheck in 1-2 days if not improving for culture reports. We will do the culture today given the family's report. We will continue the Bactrim as before and she is on high dose of this, dad tells me. At the time of her discharge, she is stable. I will discuss the case with my following partner. EMERGENCY DEPARTMENT DISPOSITION: To home. Please see ED paperwork for details. Recheck in 1-2 daysas needed, hydrate with even more fluids for the high fevers. If doing better, recheck as before. EMERGENCY DEPARTMENT FINAL IMPRESSION: 1. Urinary tract infection, mild abdominal pain, possible early pyelonephritis. 2. Fever. Electronically signed on 06/28/2007 23:02 by NAVA YANEZ MD MT: JUANIS#[id number] Name: KIM JOHNSON MRN: [id number] Account: [id number] : 2000 Visit Date: 04/16/2007 Document: [id number] cc: Yanely Doss MD TIC MOLDING OPERATOR documented in this encounter Plan of Treatment Upcoming Encounters Date Type Specialty Care Team Description 04/28/2022 Office Visit Family Practice Anthony Doe, PA-C [address] [place], [place] [phone] ([place]) 05/03/2022 Office Visit Dermatology Niel Kent M D [address] [place], [place] [phone] ([place]) 05/05/2022 Office Visit Optometry Yeny David, OD [address] [place] [address] ([place]) 05/11/2022 Virtual Visit Pharm D Diana Desir , [facility] [address] [place], [place] [address] (Wo rk) 05/14/2022 Office Visit Cardiology Livan Sharif MD [address] [facility] [address] [place], [place] [phone] (Wo rk) 05/31/2022 Office Visit Family Practice Valery Veronica , PAUcheC [address] [place] [address] (Wo rk) documented as of this encounter Visit Diagnoses Not on filedocumented in this encounter
--- OUTSIDE RECORDS SUMMARY | 2022-04-28 01:27 | XMS_ITS | Encounter Summary ---
:2000 Author Organization [facility] Address [address] [address] Phone Care Team Providers Name Role Phone Unavailable Primary Care Provider Unavailable Reason for Visit Reason Comments Headache- Recurrent Or Known Dx Migraines Auth/Cert Specialty Diagnoses / Procedures Referred By Contact Refer red To Contact [facility] Emergency Room [address] [place] [address] Referral ID Status Reason Start Date Expiration Date Visits Requ ested Visits Authorized [id number] 1 1 Encounter Details Date Type Department Care Team Description 03/15/[address] [facility] [place], Anxiety attack (Primary Dx); EMERGENCY DEPARTMENT [address] Headache, unspecified headac he type [address] [place], [place] [id number] [place] [address] [phone] Social History Tobacco Use Types Packs/Day Years Used Date Never Smoker Alcohol Use Standard Drinks/Week Comments No 0 (1 standard drink = 0.6 oz pure alcoho l) Sex Assigned at Date Recorded Not on file documented as of this encounter Last Filed [...] Index - - documented in this encounter Functional Status Functional Status Response Date of Assessment Patient's Vision Adequate to Safely Complete Daily No 03/15/2016 Activities Patient's Memory Adequate to Safely Complete Daily No 03/15/2016 Activities Cognitive Status Response Date of Assessment Patient's Judgment Adequate to Safely Complete Daily No 03/15/2016 Activities documented as of this encounter Discharge Instructions Discharge InstructionsHamNiles tellez DO - 03/15/2016 1:23 AM CDT Return if fever, intractable vomiting, breathing difficulty or any other concerns. documented in this encounter Medications at Time of Discharge Medication Sig Dispensed Refills Start Date End Date sertraline (ZOLOFT) 100 MG Take 100 mg by mouth 0 tablet one time a day. naproxen (NAPROSYN) 500 MG Take 500 mg by mouth 0 tablet two times a day as needed for Pain. Take with food. documented as of this encounter Discharge Disposition Disposition Code Departure Means Destination Home and/or Self Senior Care documented in this encounter ED Notes [place] Guaman DO - 03/15/2016 12:33 AM CDT Patient: Kim Johnson Means of Arrival: Car Chief Complaint: Headache- Recurrent Or Known Dx Migraines History of Present Illness: HPI Comments: Patient states she had a migraine earlier tonight. This evening she started feeling very anxious and was breathing fast and started feeling tingling in both hands and in her face. This still having anxiety. No recent fevers or illnesses. No recent injuries of any type. No neurologic changes or deficits otherwise. Patient is a 15 year old female presenting with HEADACHE RECURRENT OR KNOWN DX OF MIGRAINES. The history is provided by the patient, the mother and the father. Headache- Recurrent Or Known Dx Migraines Review of Systems: Review of Systems Patient states she had a migraine earlier tonight. This evening she started feeling very anxious andwas breathing fast and started feeling tingling in both hands and in her face. This still having anxiety. No recent fevers or illnesses. No recent injuries of any type. No neurologic changes or deficits otherwise. Headache has improved, but still has a headache. Does get headaches like this occasionally. No Known Allergies Prior to Admission Medication List Med List Status: ED Triage Only Deidra Rhodes RN 03/15/2016 1:22 AM naproxen (NAPROSYN) 500 MG tablet Take 500 mg by mouth two times a day as needed for Pain. Take with food. sertraline (ZOLOFT) 100 MG tablet Take 100 mg by mouth one time a day. Past Medical History: No past medical history on file. Past Surgical History: No past surgical history on file. Family History: No family history on file. Social History: She reports that she has never smoked. She does not have any smokeless tobacco history on file. She reports that she does not drink alcohol or use illicit drugs. Exam: Initial Vitals Most Recent Vitals Temp: 97.6 ??F (36.4 ??C) (03/15/1629) Temp: 97.6 ??F (36.4 ??C) (03/15/1629) Pulse: 115 (03/15/1629) Pulse: 75 (03/15/16119) Resp: 24 (03/15/1629) Resp: 14 (03/15/16119) BP: (!) 151/102 (03/15/1629) BP: (!) 151/102 (03/15/1629) SpO2: 98 % (03/15/1629) SpO2: 98 % (03/15/16119) Visual Acuity: Physical Exam: Physical Exam Patient is alert and oriented and grossly neurologically intact. Very anxious on exam. Heart rate isbrisk around 110 bpm. Patient is certain hyperventilating in the emergency Department. Lung sounds are clear however. No wheezes rales or rhonchi are appreciated and there is good lung excursion. Bellyis soft and nontender with normal bowel sounds and patient shows no signs of rash or injury to the skin. Mucous membranes are moist on exam. Lab Results: No results found for this visit on 03/15/16. Imaging Results: Imaging Results None Emergency Department Course: Patient treated as per orders and discharged in stable and improved condition. Given instructions for follow up as well as reasons to return emergently. Procedures: Procedures Assessment: (F41.0) Anxiety attack (primary encounter diagnosis) (R51) Headache, unspecified headache type Plan: Discharge Prescriptions None ED Course [facility] [place] Guaman DO 03/15/16 012 Deidra Rhodes RN - 03/15/2016 12:29 AM CDT Patient reports headache throughout day. Worse tonight. History of headaches. Nausea without vomiting. No fever. documented in this encounter Plan of Treatment Not on filedocumented as of this encounter Visit Diagnoses Diagnosis Anxiety attack - Primary Panic disorder without agoraphobia Headache, unspecified headache type documented in this encounter Administered Medications Inactive Administered Medications Medication Order MAR Action Action Date Dose Rate Site diphenhydrAMINE (BENADRYL) Given 03/15/2016 12:50 AM CDT 50 mg injection 50 mg 50 mg, IV Push, ONCE, 1 dose, On Tue03/15/16 at 0100 diphenhydrAMINE (BENADRYL) injection ADS OVERRIDE 1 dose, Starting on Tue03/15/16 at 0041, Until Tue at 0050 LORazepam (ATIVAN) injection 1 mg New Bag 03/15/2016 12:48 AM CDT 1 mg 1 mg, Intravenous, ONCE, 1 dose, On Tue03/15/16 at 0100 LORazepam (ATIVAN) injection ADS OVERRID E 1 dose, Starting on Tue03/15/16 at 0041, Until Tue at 0048 prochlorperazine (COMPAZINE) injection 1 0 mg Given 03/15/2016 12:51 AM CDT 10 mg 10 mg, IV Push, ONCE, 1 dose, On Tue03/15/16 at 0100 prochlorperazine (COMPAZINE) injection A DS OVERRIDE 1 dose, Starting on Tue03/15/16 at 0040, Until Tue at 0051 documented in this encounter Historical Medications This list may reflect changes made after this encounter. Medication Sig Dispensed Refills Start Date End Date naproxen (NAPROSYN) 500 MG Take 500 mg by mouth 0 tablet two times a day as needed for Pain. Take with food. sertraline (ZOLOFT) 100 MG Take 100 mg by mouth 0 tablet one time a day. added in this encounter Active and Recently Administered Medications Times are shown in CDT. Scheduled Medication Order 03/13/2016 03/14/2016 03/15/2016 diphenhydrAMINE (BENADRYL) injection 50 mg (COMPLETED) 0050 (Given - Provider: Deidra Rhodes RN) 50 mg, IV Push, ONCE, 1 dose, On Tue03/15/16 at 0100 LORazepam (ATIVAN) injection 1 mg (COMPLETED) 0048 (New Bag - Provider: Deidra Rhodes RN)0049 (Stopped - Provider: Deidra Rhodes RN) 1 mg, Intravenous, ONCE, 1 dose, On Tue03/15/16 at 0100 prochlorperazine (COMPAZINE) injection 10 mg (COMPLETED) 005 (Given - Provider: Deidra Rhodes RN) 10 mg, IV Push, ONCE, 1 dose, On Tue03/15/16 at 0100 documented in this encounter Orders Medications Ordered That Might Not Have Count Last Ord ered Date First Ordered Date Been Administered LORazepam (ATIVAN) injection 1 mg 1 03/15/2016 Nursing Count Last Ordered Date First Ordered Date MAINTAIN IV ACCESS 1 03/15/2016 documented in this encounter
--- OUTSIDE RECORDS SUMMARY | 2022-04-28 01:27 | XMS_ITS | Encounter Summary ---
:2000 Author Organization [facility] Address [address] [place] [address] Care Team Providers Name Role Phone Unavailable Primary Care Provider Unavailable Encounter Details Date Type Department Care Team Description 01/01/2006 Results Only [facility] Yanely Doss, Hospital Results MD [facility] [address] [place] [address] (Wo rk) [...] How often do you attend mormonism or restoration services? Never 09/22/2021 Do you [...] Description 04/28/2022 Office Visit Family [facility] Anthony Doe, PAUcheC [address] [place], [place] [phone] (Wo rk) 05/03/2022 Office Visit Dermatology Neil Kent M D [address] [place], [place] [address] (Wo rk) 05/05/2022 Office Visit Optometry Yeny David, OD [address] [facility] [address] [place], [place] [phone] (Wo rk) 05/11/2022 Virtual Visit Pharm D Diana Desir , [facility] [address] [place] [address] (Wo rk) 05/14/2022 Office Visit Cardiology Livan Sharif MD [address] [facility] [facility] [address] [place], [place] [phone] (Wo rk) 05/31/2022 Office Visit Family [facility] Valery Veronica PAB[address] [place] [address] (Wo rk) documented as of this encounter Procedures Procedure Name Priority Date/Time Associated Diagnosis Comme [facility] US Routine 01/01/2006 12:55 PM Results for this RETROPERITONEAL, CDT procedure a re in COMPLETE the results section. documented in this encounter Results SONO RETROPERITONEAL (01/01/2006 12:55 PM CDT) Anatomical Region Laterality Modality Other Specimen (Source) Anatomical Collection Method Collection Time Re ceived Time Location / / Volume Laterality 01/01/2006 12:55 PM CDT Impressions 01/27/2006 11:10 AM CDT Addendum Begins ADDENDUM REPORT - RENAL ULTRASOUND ? The bladder appears normal. ?? Addendum Ends RENAL ULTRASOUND - 01/01/06 ?? HISTORY: ??Pyelonephritis and frequency. ?? FINDINGS: ??Right kidney 8.8 cm, left ki dney 9 cm in length. ??No hydronephrosis or renal calculi. ??The l eft kidney is upper limits of normal in size and is sonographically wi thin normal limits, although it is difficult to exclude mild pyelonep hritis sonographically. Yanely Doss MD [employer]IES documented in this encounter Visit Diagnoses Not on filedocumented in this encounter
--- OUTSIDE RECORDS SUMMARY | 2022-04-28 01:27 | XMS_ITS | Encounter Summary ---
:2000 Author Organization [facility] Address [address] [place] [address] Care Team Providers Name Role Phone Unavailable Primary Care Provider Unavailable Encounter Details Date Type Department Care Team Description 01/04/2006 Historic Results INTERFACED REPORT Charlie Doss MD [facility] [address] [place] [address] (Wo rk) Social History Tobacco [...] How often do you attend confucianism or congregation services? Never 09/22/2021 Do you [...] Office Visit Family Practice Anthony Doe, PAUcheC [address] [place], [place] [phone] (Wo rk) 05/03/2022 Office Visit Dermatology Neil Kent M D [address] [place] [phone] (Wo rk) 05/05/2022 Office Visit Optometry Yeny David, OD [address] [facility] [address] [place], [place] [phone] (Wo rk) 05/11/2022 Virtual Visit Pharm D Diana Desir , [facility] [address] [place] [address] (Wo rk) 05/14/2022 Office Visit Cardiology Livan Sharif MD [address] [facility] [address] [place], [place] [address] (Wo rk) 05/31/2022 Office Visit Family Practice Valery Veronica PAB[address] [place] [address] (Wo rk) documented as of this encounter Procedures Procedure Name Priority Date/Time Associated Comments Diagnosis ROUTINE UA WITH Routine 01/04/2006 1:40 PM Result s for this MICROSCOPIC CDT procedure are i n the results section. URINE CULTURE Routine 01/04/2006 1:40 PM Results for this CDT procedure are i n the results section. documented in this encounter Results (ABNORMAL) Routine UA with microscopic (01/04/2006 1:40 PM CDT) Component Value Ref Test Analysis Performed At [facility] Range Method Time Signature Source Unspecified MISYS Urine Color Urine Yellow MISYS Appearance Urine Clear MISYS Glucose Urine Negative NEG MISYS mg/dL Bilirubin Urine Negative NEG MISYS Ketones Urine Negative NEG MISYS mg/dL Specific Williams 1.015 1.003 - MISYS Urine 1.035 Blood Urine Negative NEG MISYS pH Urine 5.0 5.0 - MISYS 7.0 pH Protein Albumin Negative NEG MISYS Urine mg/dL Urobilinogen Normal 0.0 - MISYS mg/dL 2.0 mg/dL Nitrite Urine Negative NEG MISYS Leukocyte Negative NEG MISYS Esterase Urine WBC Urine 5 (H) 0 - 2 MISYS /HPF RBC Urine 1 0 - 2 MISYS /HPF Squamous <1 0 - 1 MISYS Epithelial /HPF /HPF Urine Bacteria Urine Few (A) NEG /HPF MISYS Mucous Urine Present (A) NEG /LPF MISYS Specimen Anatomical Collection Method Collection Time Receive d Time (Source) Location / / Volume Laterality 01/04/2006 1:40 PM 6 CDT 11:12 AM CDT Yanely Doss MD LAB - URINE ORDERABLES Performing Organization Address City/State/ZIP Code Phon e Number MISYS Urine culture (01/04/2006 1:40 PM CDT) [facility] Method Time Signature Specimen Unspecified MISYS Description Urine Culture Micro No growth MISYS Micro Report FINAL [id number] MISYS Status Specimen Anatomical Collection Method Collection Time Receive d Time (Source) Location / / Volume Laterality 01/04/2006 1:40 PM 6 CDT 11:11 AM CDT Yanely Doss MD LAB - MICRO GENERAL ORDERABL ES Performing Organization Address City/State/ZIP Code Phon e Number MISYS documented in this encounter Visit Diagnoses Not on filedocumented in this encounter
--- OUTSIDE RECORDS SUMMARY | 2022-04-28 01:27 | XMS_ITS | Encounter Summary ---
:2000 Author Organization [facility] Address [address] [place] [address] Care Team Providers Name Role Phone Unavailable Primary Care Provider Unavailable Encounter Details Date Type Department Care Team Description 12/30/2005 Emergency room Tyshawn Jarrett MD EMERGENCY PHYSIC [facility] [address] [place] [address] (Wo rk) Social History [...] often do you attend roman catholic or zoroastrian services? Never 09/22/2021 Do you [...] this encounter Progress Notes Tyshawn Jarrett - 01/01/2006 4:09 AM CDT FINAL CHIEF COMPLAINT: Urine infection. HISTORY OF PRESENT ILLNESS: The patient is a 5-year-old female who presents to emergency departmentwith her mother from urgent care after being told that they had a urine infection. They were referred into the emergency department for further evaluation and treatment. The patient's mother states that she began feeling poorly earlier in the day stating that it hurt to go to the bathroom and her mother noticed fever earlier in the day, low-grade. Her mother states that she had a kidney infection in the past that was due to vesicoureteral reflux. She had been on prophylactic antibiotics in the past but was taken off them recently. The child complains of some low abdominal discomfort. The mother nicola es any vomiting or bowel complaints, cough or cold symptoms and/or any other complaints. The mother has a report from [facility] showing trace leukocytes, positive nitrites and 3+ blood. There was no microscopic exam no other complaints. PAST MEDICAL HISTORY: Positive for urinary tract infections. MEDICATIONS: The patient is on no regular medications. ALLERGIES: No known drug allergies. SOCIAL HISTORY: She is here with her mother. FAMILY HISTORY: Noncontributory. REVIEW OF SYSTEMS: As noted in the HPI. All other systems are negative. PHYSICAL EXAMINATION: GENERAL: The patient is sleeping in no apparent distress. VITAL SIGNS: Temperature 101.1, pulse on my exam was 132, respiratory rate 22, blood pressure 86/63and oxygen saturation 98% on room air. HEENT: Head exam normal. Eyes normal. Ears normal. Nose normal. Throat Normal. LUNGS: Clear to auscultation bilaterally. CARDIAC: Regular rate and rhythm. No murmurs, gallops or rubs. ABDOMEN: Normoactive bowel sounds, nontender, nondistended, soft and no masses. EXTREMITIES: Normal. SKIN: Warm and dry, no rash. LABORATORY AND DIAGNOSTICS: CBC: White count was 14.7 with 82% neutrophils, 10% lymphocytes, H&H and platelets were normal. BMP was within normal limits. Urinalysis was positive for trace blood, positive nitrites, moderate leukocyte esterase, 139 white cells in clumps, 6 red blood cells, moderatebacteria. EMERGENCY DEPARTMENT COURSE: An IV was started. The patient was given a 20 cc per kilo bolus 700 ccof normal saline over 30 minutes. She was given 1 g of Rocephin IV. Urine culture was added, she wasdoing well. I felt she was a good candidate for outpatient treatment. She had no vomiting and was doing well otherwise. I discussed the case with Dr. Palmer who was on-call for Nancy German. She stated that she would make sure the patient was followed up the following day, re-evaluated and likely given IM Rocephin. The mother was given the clinic number to call that evening for an appointment the following morning. She was given a prescription for Cefzil 500 mg b.i.d. for 7 days, Tylenol, Motrin as needed, fluids, rest, return if worse, follow up with the morning with PMD for re-evaluationand repeat Rocephin if needed. The patient was given 350 mg of Motrin p.o. at triage per protocol. Predischarge vitals, temperature 99.1, pulse 126, respiratory rate 22 and oxygen saturation 98% on room air. DIAGNOSIS: Pyelonephritis. Electronically signed on 01/01/2006 04:08 by TYSHAWN JARRETT MD MT: [id number] Name: KIM JOHNSON MRN: [id number] Account: [id number] : 2000 Visit Date: 12/30/2005 Document: [id number] Tyshawn Jarrett - 01/01/2006 1:30 AM CDT PRELIMINARY CHIEF COMPLAINT: Urine infection. HISTORY OF PRESENT ILLNESS: The patient is a 5-year-old female who presents to emergency departmentwith her mother from urgent care after being told that they had a urine infection. They were referred into the emergency department for further evaluation and treatment. The patient's mother states that she began feeling poorly earlier in the day stating that it hurt to go to the bathroom and her mother noticed fever earlier in the day, low-grade. Her mother states that she had a kidney infection in the past that was due to vesicoureteral reflux. She had been on prophylactic antibiotics in the past but was taken off them recently. The child complains of some low abdominal discomfort. The mother nicola es any vomiting or bowel complaints, cough or cold symptoms and/or any other complaints. The mother has a report from [facility] showing trace leukocytes, positive nitrites and 3+ blood. There was no microscopic exam no other complaints. PAST MEDICAL HISTORY: Positive for urinary tract infections. MEDICATIONS: The patient is on no regular medications. ALLERGIES: No known drug allergies. SOCIAL HISTORY: She is here with her mother. FAMILY HISTORY: Noncontributory. REVIEW OF SYSTEMS: As noted in the HPI. All other systems are negative. PHYSICAL EXAMINATION: GENERAL: The patient is sleeping in no apparent distress. VITAL SIGNS: Temperature 101.1, pulse on my exam was 132, respiratory rate 22, blood pressure 86/63and oxygen saturation 98% on room air. HEENT: Head exam normal. Eyes normal. Ears normal. Nose normal. Throat Normal. LUNGS: Clear to auscultation bilaterally. CARDIAC: Regular rate and rhythm. No murmurs, gallops or rubs. ABDOMEN: Normoactive bowel sounds, nontender, nondistended, soft and no masses. EXTREMITIES: Normal. SKIN: Warm and dry, no rash. LABORATORY AND DIAGNOSTICS: CBC: White count was 14.7 with 82% neutrophils, 10% lymphocytes, H&H and platelets were normal. BMP was within normal limits. Urinalysis was positive for trace blood, positive nitrites, moderate leukocyte esterase, 139 white cells in clumps, 6 red blood cells, moderatebacteria. EMERGENCY DEPARTMENT COURSE: An IV was started. The patient was given a 20 cc per kilo bolus 700 ccof normal saline over 30 minutes. She was given 1 g of Rocephin IV. Urine culture was added, she wasdoing well. I felt she was a good candidate for outpatient treatment. She had no vomiting and was doing well otherwise. I discussed the case with Dr. Palmer who was on-call for [facility]. She stated that she would make sure the patient was followed up the following day, re-evaluated and likely given IM Rocephin. The mother was given the clinic number to call that evening for an appointment the following morning. She was given a prescription for Cefzil 500 mg b.i.d. for 7 days, Tylenol, Motrin as needed, fluids, rest, return if worse, follow up with the morning with PMD for re-evaluationand repeat Rocephin if needed. The patient was given 350 mg of Motrin p.o. at triage per protocol. Predischarge vitals, temperature 99.1, pulse 126, respiratory rate 22 and oxygen saturation 98% on room air. DIAGNOSIS: Pyelonephritis. TYSHAWN JARRETT MD MT: [id number] Name: KIM JOHNSON MRN: [id number] Account: [id number] : 2000 Visit Date: 12/30/2005 Document: [id number] documented in this encounter Plan of Treatment Upcoming Encounters Date Type Specialty Care Team Description 04/28/2022 Office Visit Family Practice Anthony Deo, [facility] [address] [place], [place] [phone] (Wo rk) 05/03/2022 Office Visit Dermatology Neil Kent M D [address] [place], [place] [phone] (Wo rk) 05/05/2022 Office Visit Optometry Yeny David, OD [address] [place] [phone] (Wo rk) 05/11/2022 Virtual Visit Pharm D Diaan Desir , [facility] [address] [place], [place] [address] (Wo aldo) 05/14/2022 Office Visit Cardiology Livan Sharif MD [address] [facility] [address] , [facility] [address] [place], [place] [address] (Wo rk) 05/31/2022 Office Visit Family Practice Valery Veronica PA-C [address] [place] [address] (Wo rk) documented as of this encounter Visit Diagnoses Not on filedocumented in this encounter
--- OUTSIDE RECORDS SUMMARY | 2022-04-28 01:27 | XMS_ITS | Encounter Summary ---
:2000 Author Organization [facility] Address [address] [place] [address] Care Team Providers Name Role Phone Unavailable Primary Care Provider Unavailable Encounter Details Date Type Department Care Team Description 12/31/2005 Admission H&P Yanely Doss MD (Associate Professor Of Mathematics) [facility] [address] [place] [address] (Wo rk) Social History Tobacco [...] How often do you attend mu-ism or jew services? Never 09/22/2021 Do you [...] documented as of this encounter Progress Notes Romario Yanely Nelly - 12/31/2005 7:26 PM CDT PRELIMINARY Kim is a 5-year-old who started to complain of some dysuria and was having urinary frequency lastnight. Mom took her into urgent care. She did develop a fever of over 102 and then it was felt that she probably had a pyelonephritis and was sent to the ER. LABORATORY STUDIES: Lab work there showed a white count of 14.7 with 82 segs, 10 lymphocytes, 7 monocytes, 1 eosinophil. Platelets were 314,000. Hemoglobin was 1.6. Electrolytes, BUN and creatinine were normal. Urinalysis showed trace blood, positive nitrites, moderate leukocyte esterase, 139 white cells, 6 red cells, and there were clumps of white cells, moderate bacteria. She was given some IV fluids and IV ceftriaxone and was sent home. Mom states she came home early this morning about 4:00 a.m. Mom states she has had 2 episodes of vomiting this morning. She has not really wanted to drink anything since vomiting and has been just more listless. She has had no cold symptoms and otherwise well. PAST MEDICAL HISTORY: Is significant for having had pyelonephritis in the past. She was found to have a vesicoureteral reflux when she was under 1 year of age. We had also done a DMSA scan when she was younger because she had had a pyelonephritis and that was normal. She had been on prophylaxis, but a repeat VCUG and renal ultrasound in 2003 were normal, however, mom is not sure if the VCUG was an adequate study. Otherwise her past medical history is unremarkable. ALLERGIES: None. MEDICATIONS: None. PHYSICAL EXAMINATION: VITAL SIGNS: Weight 76 pounds, temperature 103. GENERAL: She is alert, but tired appearing 5-year-old in no acute distress. HEENT: Conjunctivae areclear. TMs clear. Oropharynx clear. NECK: Supple without adenopathy. LUNGS: Clear to auscultation. HEART: Regular rate and rhythm without any murmur. ABDOMEN: Soft, nondistended, without any hepatosplenomegaly or masses. She has diffuse tenderness to palpation. No CVA tenderness. ASSESSMENT: Pyelonephritis. PLAN: We will admit her to the hospital. We will give her a bolus of fluid, start her on 1-1/2 maintenance fluids. We will give her IV ceftriaxone until the culture results are back. We will repeat her electrolytes, BUN and creatinine today. YANELY DOSS MD MT: JUANIS#[id number] Name: KIM JOHNSON Account: [id number] : 2000 Admitted: [id number] Document: [id number] documented in this encounter Plan of Treatment Upcoming Encounters Date Type Specialty Care Team Description 04/28/2022 Office Visit Family [facility] Anthony Doe PA-C [address] [place], [place] [phone] (Wo rk) 05/03/2022 Office Visit Dermatology Neil Kent M D [address] [place], [place] [address] (Wo rk) 05/05/2022 Office Visit Optometry Yeny David, OD [address] [place] [phone] (Wo rk) 05/11/2022 Virtual Visit Pharm D Diana Desir , [facility] [address] [place], [place] [address] (Wo aldo) 05/14/2022 Office Visit Cardiology Livan Sharif MD [address] , [place] [address] [place], [place] [address] (Wo rk) 05/31/2022 Office Visit Family Practice Valery Veronica PA-C [address] [place] [address] (Wo rk) documented as of this encounter Visit Diagnoses Not on filedocumented in this encounter
--- OUTSIDE RECORDS SUMMARY | 2022-04-28 01:27 | XMS_ITS | Clinical Summary ---
:2000 Author Organization [facility] [place] [address] Care Team Providers Name Role Phone Clinic, No Pcp Or Primary Care Provider Unavailable Allergies No known active allergies Medications Medication Sig Dispensed Refills Start Date End Date Status biotin-silicon Take 1 capsule 0 Active ztdx-K-qhnyonve 3,000 by mouth once mcg -100 mg-50 mg TbER daily. etonogestrel subdermal Inject 68 mg 0 08/16/2016 Active implant (NEXPLANON) 68 subcutaneous. mg implant ferrous sulfate, 65 mg Take 325 mg by 0 Active elemental, tablet mouth once daily. fluocinonide 0.05% Apply topically 0 05/17/2017 Active topical (LIDEX) 0.05 % to affected cream area(s) 2 times daily. ibuprofen (ADVIL; Take 400 mg by 0 10/24/2014 Active MOTRIN) 200 mg tablet mouth every 6 hours. LORazepam (ATIVAN) 0.5 Take 0.5 mg by 0 04/12/2016 Active mg tab mouth every 8 hours. naproxen (NAPROSYN) Take 500 mg by 0 04/12/2016 Active 500 mg tablet mouth one time if needed. sertraline (ZOLOFT) Take 100 mg by 2 08/28/2018 Active 100 mg tablet mouth once daily. levonorgestrel Inject 1 Each 0 10/11/2017 10/10/2022 Active intrauterine device intrauterine. (MIRENA) 20 mcg/24 hr (5 years) IUD triamcinolone Apply topically 0 09/12/2017 Active (ARISTOCORT; KENALOG) to affected 0.1 % cream area(s). Active Problems No known active problems Social History Tobacco Use Types Packs/Day Years Used Date Current Every Day Smoker Cigarettes 0.25 Smokeless Tobacco: Never Used Comments: e-cig Alcohol Use Standard Drinks/Week Comments No 0 (1 standard drink = 0.6 oz pure alcoho l) Sex Assigned at Date Recorded Not on file Obstetrics History Last Filed Vital Signs Vital Sign Reading Time Taken Comments Blood Pressure 124/78 08/31/2018 11:46 AM [employer] Pulse 78 08/31/2018 11:46 AM [employer] Temperature 37.1 ??C (98.8 ??F) 11/01/2017 5:26 PM CDT Respiratory Rate 16 11/01/2017 5:26 PM CDT Oxygen Saturation 96% 11/01/2017 5:26 PM CDT Inhaled Oxygen Concentration - - Weight 89.3 kg (196 lb 14.4 oz) 08/31/2018 11:46 AM [employer]ER Height 166.5 cm (5' 5.55) 08/31/2018 11:46 AM [employer] ED[employer] ROOM TE[employer]ER Body Mass Index 32.22 08/31/2018 11:46 AM [employer] EDUC[employer] ROOM TE[employer]ER Plan of Treatment Health Maintenance Due Date Last Done Comments COVID-19 vaccine series (#1) 2000 HPV series for age 9-26 (1 - 2-dose series) 2011 Tdap 2011 Depression screening for age 12+ 2012 Chlamydia for age 16-24 2016 Hepatitis C screening for age 18-79 2018 BMI (ht and wt on same day) for age 18+ 08/31/2019 08/31/19 19 Tetanus booster 2020 Pap test for age 21-65 2021 Influenza for age 9-49 03/11/2022 Results Not on filefrom Last 3 Months Insurance Payer Benefit Plan / Subscriber ID Effective Dates Phone Addre ss Type Group PREFERRED ONE PREFERRED ONE [id number] 2018-Present [address] [place] [address] Care Teams Fire Pilot Relationship Specialty Start Date End Date Clinic, No Pcp Or PCP - General 08/12/17 .
--- OUTSIDE RECORDS SUMMARY | 2022-04-28 01:27 | XMS_ITS | Encounter Summary ---
:2000 Author Organization [facility] Address [address] [place] [address] Care Team Providers Name Role Phone Unavailable Primary Care Provider Unavailable Encounter Details Date Type Department Care Team Description 12/31/2005 Discharge Summary Prateek Doss MD (Sealer Sander) [facility] [address] [place] [address] (Wo rk) Social History Tobacco [...] How often do you attend muslim or latter-day services? Never 09/22/2021 Do you [...] documented as of this encounter Progress Notes Yanely Doss - 01/04/2006 11:19 AM CDT PRELIMINARY HISTORY OF PRESENT ILLNESS: This is a 5-year-old girl who has a past history significant for vesicoureteral reflux. It had been felt to be resolved. She had spiked a fever and started having some dysuria, urinary frequency and was seen in the Emergency Room. She had a white count at that time of 14.7with a left shift. Urinalysis showed trace blood, positive nitrate, moderate leukocyte esterase, 39 white cells, 6 red cells and clumps of white cells with moderate bacteria. They tried giving her IV fluids and IV ceftriaxone and sending her home, but she had vomiting at home and was not keeping fluids down so is admitted for further treatment. PHYSICAL EXAMINATION: Remarkable for some diffuse abdominal tenderness to palpation but no hepatosplenomegaly or masses. She had no CVA tenderness. She was started on ceftriaxone and 1-1/2 maintenancefluids. She has gradually defervesced during her hospital course. Her urine culture did show greaterthan 100,000 e. coli sensitive to ceftriaxone and Septra. She had a normal renal ultrasound in the hospital. ASSESSMENT: Resolving pyelonephritis. PLAN: Will repeat a urinalysis and urine culture prior to discharge today. Will start her on Septra2 teaspoons twice a day for 10 days and then decrease her to once a day. Will schedule her for an outpatient voiding cystourethrogram (VCUG) with sedation at [facility]. YANELY DOSS MD MT: JUANIS#[id number] Name: KIM JOHNSON MRN: [id number] Account: [id number] : 2000 Admit Date: [id number] Discharge Date: Document: [id number] documented in this encounter Plan of Treatment Upcoming Encounters Date Type Specialty Care Team Description 04/28/2022 Office Visit Family Practice Anthony Doe PAUcheC [address] [place], [place] [phone] (Wo rk) 05/03/2022 Office Visit Dermatology Neil Kent M D [address] [place], [place] [phone] (Wo rk) 05/05/2022 Office Visit Optometry Yeny David, OD [address] [place] [phone] (Wo rk) 05/11/2022 Virtual Visit Pharm D Diana Desir , [facility] [address] [place], [place] [phone] (Wo rk) 05/14/2022 Office Visit Cardiology [facility] [address] [facility] [address] [place], [place] [phone] (Wo rk) 05/31/2022 Office Visit Family Practice Valery Veronica PA-C [address] [place], [place] [address] (Wo rk) documented as of this encounter Visit Diagnoses Not on filedocumented in this encounter
[2022-04-28 01:45] VITALS: BP 114/71; PULSE 88; RESP 18; O2SAT 99
[2022-04-28 02:15] VITALS: BP 114/71; PULSE 88; RESP 18; TEMP 37.7
--- NOTE | 2022-04-28 02:15 | ED_ITS ---
HPI - General Adult General Date Seen: 04/28/22 Chief complaint: Fever Stated complaint: meningitis Time Seen by Provider: 04/28/22 00:19 Source: patient History of Present Illness HPI narrative: Patient is a 22-year-old here for re-evaluation of fever and neck pain. She tells me that around 1:00 p.m. on Tuesday, she had sudden onset of sharp posterior neck pain associated with fever. She presented to the [facility] ER where she had a thorough evaluation. She tells me that she had been having trouble with a migraine for a day or so prior to that, which is not unusual for her, but this sharp neck pain was atypical. She was not having any trouble moving her neck at the time. In the ER [facility], she had a CT of the head as well as a CT angiogram, both of which were normal. She had labs including a CBC, lactate, CRP, basic metabolic panel, venous blood gas, blood cultures, influenza, COVID, RSV, test, and all labs were normal. She also had a urinalysis which showed no red cells and no white cells. She says that she has been having fevers up to 102 at home. She has generalized body aches, continues to have some neck pain although it is better than it was. She continues to have no difficulty moving her neck. Headache is improved as well, she was treated with migraine medications at [facility]. She does have a little bit of a sore throat, has not had a cough. She denies any urinary symptoms. Has not had abdominal pain, vomiting or diarrhea. No unusual rashes, she does have a prior history of psoriasis. She had a baby 15 months ago so she is currently not on any medications for her psoriasis. She continues to breastfeed. She denies any symptoms of mastitis. She continues to just feel achy and fatigued, she called the nurse line bisi noting that she continued to have fevers and neck pain, and was advised to come in to rule out possible meningitis. Aside from psoriasis, she notes a history of SVT. She does not smoke, denies significant alcohol use and denies any drug use. Related Data Home Medications Medication Instructions Recorded Confirmed levetiracetam 500 mg tablet 500 mg PO DAILY 04/28/22 04/28/22 omeprazole 40 mg capsule,delayed 40 mg PO DAILY 04/28/22 04/28/22 release paroxetine HCl 20 mg tablet 20 mg PO DAILY 04/28/22 04/28/22 Previous Rx's Medication Instructions Recorded clindamycin HCl 300 mg capsule 300 mg PO TID #21 caps 02/26/22 Allergies Allergy/AdvReac Type Severity Reaction Status Date / Time No Known Drug Allergies Allergy Verified 02/26/22 07:26 Review of Systems Status of ROS: Reports: 10 or more systems reviewed and unremarkable except as noted in History and below PFSH PFS Social History Smoking Status: Never smoker Do you use any of these nicotine containing products: None Second hand tobacco smoke exposure: No How often do you have a drink containing alcohol: never How often do you have six or more drinks on one occasion: Never AUDIT-C Alcohol total score: 0 Non-prescribed substance use: denies use service: No Exam Narrative: Exam Narrative: Vital signs as noted above. In general, an alert, well-appearing patient. She moves her head and neck freely. Head: Normocephalic, atraumatic. Eyes: Pupils are equal reactive. Extraocular movements are full. Conjunctivae are normal. ENT: Mucous membranes are moist. Throat is normal. Tonsils are somewhat large, there is no exudate or edema however. No evidence of abscess. Left TM is difficult to visualize secondary to wax, right is normal. Neck: Supple without lymphadenopathy. No meningeal signs whatsoever. Heart: Mildly tachycardic and regular. No murmur or rub. Lungs: Clear bilaterally. No increased work of breathing, crackles or wheezes. No CVA tenderness. Abdomen: Soft and nontender. No organomegaly. Extremities: Well perfused. No edema. No calf tenderness. Pulses intact. Neurologic: Patient is alert and oriented to person and place. Speech is fluent. Face is symmetric. Moves all extremities equally. Affect: Normal. Skin: Warm and dry. Well perfused. Diffuse rash consistent with annular psoriasis. Const: Vital Signs, click to edit/add: Vital Signs - 24 hr 04/28/22 00:02 04/28/22 00:01 04/28/22 00:15 Temperature 99.9 F H 99.9 F H Pulse Rate [Right Pulse Oximeter] 99 95 Respiratory Rate 18 18 Blood Pressure [Ri ght Arm] 130/74 Blood Pressure [Ri ght Upper Arm] 130/74 Pulse Oximetry 99 99 99 Oxygen Delivery Me thod Room Air Room Air 04/28/22 00:50 04/28/22 01:45 Temperature Pulse Rate [Right Pulse Oximeter] 84 88 Respiratory Rate 18 18 Blood Pressure [Ri ght Arm] Blood Pressure [Ri ght Upper Arm] 124/77 114/71 Pulse Oximetry 99 99 Oxygen Delivery Me thod Room Air Room Air Documenting provider has reviewed patient's vital signs: yes Course Course Hospital Course: We had a lengthy conversation about how to proceed. I do think clinically I do not have any suspicion for meningitis. She has no meningeal signs, she has been sick now for over 2 days, and she looks very nontoxic. Her workup at [facility] was completely normal. We discussed that the only way to diagnose meningitis is with lumbar puncture, and while it is an easy test to do, there are some risks involved, most notably the risk of spinal headache which can necessitate a 2nd procedure. Therefore, we decided to recheck some labs and see if any labs suggested more of a bacterial process at this time versus viral. She did have a negative COVID test a couple of days ago, although I do not think that entirely rules out the possibility of COVID. Likewise, I think there is a possibility of Ebstein Oro, but discussed with her that I think it is too early to test for that. I recheck to CBC, metabolic panel, lactate and CRP. Her white blood cell count now is 4.68. Diff is normal. Hemoglobin is 11.3. Metabolic panel is normal. Lactate is 0.7. CRP is likewise normal at 0.7. She did have a L of normal saline while here. She remains afebrile and nontoxic in appearance. I think it is most reasonable at this time to treat this with supportive care. I would not recommend lumbar puncture as I think the risks outweigh the benefits at this time. If the fever persists for more than a couple more days, I would recommend that she has seen primary care. If she has acute worsening, or develops focal symptoms, re-evaluated in the ER. Consider testing for Ebstein Oro or repeat COVID testing if not improving in a couple of days. Vital Signs Vital signs: Initial Vital Signs Temperature 99.9 F H 04/28/22 00:01 Temperature Source Oral 04/28/22 00:01 Pulse Rate 95 04/28/22 00:01 Respiratory Rate 18 04/28/22 00:01 Respiratory Effort Spontaneous 04/28/22 00:01 Respiratory Depth Normal 04/28/22 00:01 Respiratory Pattern 04/28/22 00:01 Blood Pressure 130/74 04/28/22 00:01 Blood Pressure Mean 92 04/28/22 00:01 Blood Pressure Position Supine 04/28/22 00:01 Pulse Oximetry 99 04/28/22 00:01 Oxygen Delivery Method 04/28/22 00:01 Sepsis Recent Fever Within 48 Hours Yes 04/28/22 00:01 Sepsis New/Unexplained Change in Mental Status No 04/28/22 00:01 Sepsis Action Taken by Nursing No Action Required 04/28/22 00:01 Vital Signs Temperature 99.9 F H 04/28/22 00:01 Pulse Rate 95 04/28/22 00:01 Respiratory Rate 18 04/28/22 00:01 Blood Pressure 130/74 04/28/22 00:01 Pulse Oximetry 99 04/28/22 00:01 Oxygen Delivery Method 04/28/22 00:01 Temperature 99.9 F H 04/28/22 00:02 Pulse Rate 88 04/28/22 01:45 Respiratory Rate 18 04/28/22 01:45 Blood Pressure 114/71 04/28/22 01:45 Pulse Oximetry 99 04/28/22 01:45 Oxygen Delivery Method 04/28/22 01:45 Medical Decision Making Lab Data Labs: Lab Results 04/28/22 04/28/22 04/28/22 Range/Units 00:40 00:40 00:40 WBC 4.68 (4.50-11.00) K/uL RBC 4.21 (4.00-5.20) m/uL Hgb 11.3 L (12.0-16.0) gm/dL Hct 33.8 (33.0-51.0) % MCV 80 (80-100) fL MCH 27 (26-34) pg MCHC 33 (32-36) gm/dL RDW Coeff of Naina 12.7 (11.5-15.5) % Plt Count 201 (140-440) K/uL Neut % (Auto) 43.6 (42.0-72.0) % Lymph % (Auto) 42.1 (20-44) % Bracken % (Auto) 10.3 (0.0-11.0) % Eos % (Auto) 3.6 (0.0-7.0) % Baso % (Auto) 0.4 (0.0-3.0) % Neut # (Auto) 2.04 (1.7-7.0) K/uL Lymph # (Auto) 1.97 (0.90-2.90) K/uL Bracken # (Auto) 0.50 (0.00-0.90) K/UL Eos # (Auto) 0.17 (0.00-0.50) K/uL Baso # (Auto) 0.02 (0.00-0.30) K/uL Abs Immat Gran (auto) 0.00 (0.00-0.30) K/uL Sodium 136 (135-149) mmol/L Potassium 3.6 (3.6-5.1) mmol/L Chloride 103 (96-114) mmol/L Carbon Dioxide 25 (20-32) mmol/L BUN 11 (5-24) mg/dL Creatinine 0.6 (0.5-1.5) mg/dL Estimated Creat Clear 137.68 Estimated GFR 130 ml/min Glucose 110 (60-115) mg/dL Lactate 0.7 (0.5-1.9) mmol/L Calcium 9.1 (8.4-10.6) mg/dL C-Reactive Protein 0.7 (0.5-1.0) mg/dL Procalcitonin 04/28/22 Range/Units 00:40 WBC (4.50-11.00) K/uL RBC (4.00-5.20) m/uL Hgb (12.0-16.0) gm/dL Hct (33.0-51.0) % MCV (80-100) fL MCH (26-34) pg MCHC (32-36) gm/dL RDW Coeff of Naina (11.5-15.5) % Plt Count (140-440) K/uL Neut % (Auto) (42.0-72.0) % Lymph % (Auto) (20-44) % Bracken % (Auto) (0.0-11.0) % Eos % (Auto) (0.0-7.0) % Baso % (Auto) (0.0-3.0) % Neut # (Auto) (1.7-7.0) K/uL Lymph # (Auto) (0.90-2.90) K/uL Bracken # (Auto) (0.00-0.90) K/UL Eos # (Auto) (0.00-0.50) K/uL Baso # (Auto) (0.00-0.30) K/uL Abs Immat Gran (auto) (0.00-0.30) K/uL Sodium (135-149) mmol/L Potassium (3.6-5.1) mmol/L Chloride (96-114) mmol/L Carbon Dioxide (20-32) mmol/L BUN (5-24) mg/dL Creatinine (0.5-1.5) mg/dL Estimated Creat Clear Estimated GFR ml/min Glucose (60-115) mg/dL Lactate (0.5-1.9) mmol/L Calcium (8.4-10.6) mg/dL C-Reactive Protein (0.5-1.0) mg/dL Procalcitonin Cancelled Discharge Plan Discharge Clinical Impression: Fever Patient Disposition: Home, Self-Care Condition: Stable Instructions: Fever in Adults (ED) Additional Instructions: Follow-up with primary care for fever that persists beyond 3-5 days. Ibuprofen and/or Tylenol as needed for fever or pain. Prescriptions: No Action clindamycin HCl 300 mg capsule 300 mg PO TID Qty: 21 0RF levetiracetam 500 mg tablet 500 mg PO DAILY Label Comments: TAKE ONE TABLET BY MOUTH EVERY DAY omeprazole 40 mg capsule,delayed release(DR/EC) 40 mg PO DAILY Label Comments: TAKE ONE CAPSULE BY MOUTH EVERY DAY . paroxetine HCl 20 mg tablet 20 mg PO DAILY Label Comments: TAKE ONE TABLET BY MOUTH EVERY MORNING Follow Up/Referrals: Provider,Not a Local [Primary Care Provider] - Stand Alone Forms: [employer] Info Instructions
== END 2022-04-28 02:00 | disposition home or self-care (01) ==
PROVIDERS: Emergency Provider Emergency Medicine
DX: R50.9 Fever, unspecified (principal)
CPT/HCPCS: 36415; 80048; 83605; 84145; 84146; 85025; 86140; 94761; 96360; 99283; 99284; J7030

== ENCOUNTER 2023-03-18 18:54 | Emergency (ER) | payer MEDICAID, SELFPAY ==
[2023-03-18 18:59] VITALS: BP 126/77; PULSE 90; RESP 18; TEMP 36.9; O2SAT 100; BMI 27.4
--- NOTE | 2023-03-18 20:04 | ED_ITS ---
HPI - General Adult General Chief complaint: Rib Pain Stated complaint: Rib pain Time Seen by Provider: 03/18/23 19:30 History of Present Illness HPI narrative: This 22-year-old female comes in reporting pain in her right flank area. The pain is in her ribs and is reproducible when twisting or moving in certain directions. She states that she has been having some discomfort in this area for a week or so but recently she bent over and twisted and had sudden worsening pain in this area. She went to urgent care and had an x-ray to done today. Results were negative. She comes here thinking that there must be something more going on is concerned about some kind of internal organs or some other process causing these symptoms. Related Data Home Medications Medication Instructions Recorded Confirmed levetiracetam 500 mg tablet 500 mg PO DAILY 04/28/22 04/28/22 omeprazole 40 mg capsule,delayed 40 mg PO DAILY 04/28/22 04/28/22 release paroxetine HCl 20 mg tablet 20 mg PO DAILY 04/28/22 03/18/23 cephalexin 500 mg capsule 500 mg PO 3XD 03/18/23 03/18/23 levetiracetam 500 mg tablet 250 mg PO QDAY 03/18/23 03/18/23 (Keppra) lorazepam 0.5 mg tablet 0.5 mg PO DAILY PRN anxiety 03/18/23 03/18/23 Previous Rx's Medication Instructions Recorded clindamycin HCl 300 mg capsule 300 mg PO TID #21 caps 02/26/22 Allergies Allergy/AdvReac Type Severity Reaction Status Date / Time vancomycin Allergy Verified 03/18/23 19:04 Review of Systems Status of ROS: Reports: 10 or more systems reviewed and unremarkable except as noted in History and below Narrative: Constitutional: No fevers, no weight gain or loss. Eyes: No discharge. No vision changes. HENT: No congestion, no sore throat, no ear pain. Cardiovascular: No chest pain, no palpitations. Respiratory: No shortness of breath, no wheezes, no cough. Gastrointestinal: No abdominal pain, no vomiting, no diarrhea. Genitourinary: No dysuria, no hematuria. Musculoskeletal: Normal range of motion. Skin: No rashes, no pruritis. Neurological: No dizziness, weakness, sensory change, speech change. Endo/Heme/Allergies: No bruising or bleeding. No polydipsia. Pysch: no suicidality, no anxiety, no insomnia. All other systems reviewed and are negative. [facility] Social History Smoking Status: Never smoker Do you use any of these nicotine containing products: None Second hand tobacco smoke exposure: No How often do you have a drink containing alcohol: never How often do you have six or more drinks on one occasion: Never AUDIT-C Alcohol total score: 0 Non-prescribed substance use: denies use service: No Exam Narrative: Exam Narrative: Constitutional: Well-developed, well-nourished, no acute distress. HEENT: Normocephalic, atraumatic. Neck: Normal range of motion. Nontender. Supple. Heart: Regular. No murmurs. Normal rate. Intact distal pulses. Lungs: Clear to auscultation. No chest discomfort. No wheezes, rhonchi, or rales. Abdomen: Normal bowel sounds. Nontender. No rebound tenderness. Genitalia: Deferred. Back: No midline tenderness. Normal range of motion. Pain is located in the right flank region and is reproducible with rotation of her trunk and when taking a deep breath. Extremities: Normal range of motion. No injury. Skin: Intact. No rash. Warm. No erythema or pallor. Neurologic: No altered sensation. No weakness. Alert and oriented. Psychiatric: No suicidality. No anxiety or depression. No insomnia. Nursing notes and vitals signs are reviewed. Const: Vital Signs, click to edit/add: Vital Signs - 24 hr 03/18/23 18:59 Temperature 98.4 F Pulse Rate [Right Pulse Oximeter] 90 Respiratory Rate 18 Blood Pressure [Ri ght Upper Arm] 126/77 Pulse Oximetry 100 Oxygen Delivery Me thod Room Air Course Vital Signs Vital signs: Initial Vital Signs Temperature 98.4 F 03/18/23 18:59 Temperature Source Temporal Artery Scan 03/18/23 18:59 Pulse Rate 90 03/18/23 18:59 Respiratory Rate 18 03/18/23 18:59 Blood Pressure 126/77 03/18/23 18:59 Blood Pressure Mean 93 03/18/23 18:59 Blood Pressure Position Sitting 03/18/23 18:59 Pulse Oximetry 100 03/18/23 18:59 Oxygen Delivery Method Room Air 03/18/23 18:59 Vital Signs Temperature 98.4 F 03/18/23 18:59 Pulse Rate 90 03/18/23 18:59 Respiratory Rate 18 03/18/23 18:59 Blood Pressure 126/77 03/18/23 18:59 Pulse Oximetry 100 03/18/23 18:59 Oxygen Delivery Method Room Air 03/18/23 18:59 Temperature 98.4 F 03/18/23 18:59 Pulse Rate 90 03/18/23 18:59 Respiratory Rate 18 03/18/23 18:59 Blood Pressure 126/77 03/18/23 18:59 Pulse Oximetry 100 03/18/23 18:59 Oxygen Delivery Method Room Air 03/18/23 18:59 Medical Decision Making MDM Narrative Medical decision making narrative: This patient comes in with pain in her right flank region that is reproducible with any kind twisting or movement of her trunk. She has been having some pain for the past few weeks but it got worse when she bent over and felt like there was something that became instantly worse. She did go to urgent care earlier today and had a chest x-ray which was negative. She comes here because she thinks that there is something more going on. I did discuss other lab and imaging options but indicated that her symptoms are very likely related to muscle strain or musculoskeletal cause. She requested CT imaging of the abdomen and pelvis to rule out something internally happening. This was done without contrast and by my review shows no sign of abnormality. The patient prefers to leave at this time in is confident that there is not something happening internally based on my report. When radiology report comes she will be contacted if there is any significant discrepancy. She did receive a rib belt and prescription for Toradol and a few tablets of [place] was provided. Discharge Plan Discharge Clinical Impression: Acute thoracic myofascial strain Patient Disposition: Home, Self-Care Condition: Unchanged Additional Instructions: Take medication as needed and directed. Wear rib belt also as needed and directed. Increase activity as tolerated. Follow up with MD return if worsening. Prescriptions: No Action lorazepam 0.5 mg tablet 0.5 mg PO DAILY PRN (Reason: anxiety) levetiracetam [Keppra] 500 mg tablet 250 mg PO QDAY cephalexin 500 mg capsule 500 mg PO 3XD clindamycin HCl 300 mg capsule 300 mg PO TID Qty: 21 0RF levetiracetam 500 mg tablet 500 mg PO DAILY Patient Comments: TAKE ONE TABLET BY MOUTH EVERY DAY omeprazole 40 mg capsule,delayed release(DR/EC) 40 mg PO DAILY Patient Comments: TAKE ONE CAPSULE BY MOUTH EVERY DAY . paroxetine HCl 20 mg tablet 20 mg PO DAILY Patient Comments: TAKE ONE TABLET BY MOUTH EVERY MORNING Follow Up/Referrals: Provider,Not a Local [Primary Care Provider] - Stand Alone Forms: [employer] Info Instructions
--- NOTE | 2023-03-18 20:04 | CRLHL7_ITS ---
For Patients: As a result of the Century Cures Act, medical imaging exams and procedure reports are released immediately into your electronic medical record. You may view this report before your referring provider. If you have questions, please contact your health care provider. INDICATION: Right flank/rib pain. TECHNIQUE: CT abdomen and pelvis without contrast. COMPARISON: None. FINDINGS: Lower chest: No focal consolidation. Evaluation of solid organs is limited secondary to lack of IV contrast administration. Liver: No suspicious focal hepatic lesion. Gallbladder and bile ducts: Unremarkable. Pancreas: Unremarkable. Spleen: Unremarkable. Splenule is noted. Adrenal glands: Unremarkable. Kidneys: No renal calculi or hydronephrosis bilaterally. Retroperitoneum: No lymphadenopathy. Bowel and mesentery: Bowel is not obstructed. Mild pericolonic inflammation along the descending colon. Appendix contains hyperdense material, but is normal in caliber with no periappendiceal inflammation. No significant ascites. No pneumoperitoneum. Bladder: Decompressed, suboptimally evaluated. Reproductive organs: Intrauterine contraceptive device is noted. Prominent phleboliths are noted. Pelvic lymph nodes: No lymphadenopathy. Vessels: Unremarkable for unenhanced study. Abdominal wall: No acute abdominal wall abnormality. Bones: No suspicious/aggressive focal osseous lesion. IMPRESSION: 1. No renal calculi or hydronephrosis bilaterally. 2. Mild colitis along the descending colon. 3. No evidence of acute appendicitis. Please note that all CT scans at this facility use dose modulation, iterative reconstruction, and/or weight-based dosing when appropriate to reduce radiation dose to as low as reasonably achievable. Dictated by Florentino Monroy MD @ 03/18/2023 10:15:21 PM (Electronically Signed)
== END 2023-03-18 21:21 | disposition home or self-care (01) ==
PROVIDERS: Emergency Provider Emergency Medicine Emergency Medical Services
DX: S29.012A Strain of muscle and tendon of back wall of thorax, initial encounter (principal)
CPT/HCPCS: 74176; 99283; 99284

== ENCOUNTER 2023-04-20 12:22 | Emergency (ER) | payer MEDICAID, SELFPAY ==
[2023-04-20 12:29] VITALS: BP 126/77; PULSE 90; RESP 16; TEMP 36.8; O2SAT 99; BMI 28.2
--- NOTE | 2023-04-20 12:54 | ED.GENADULT ---
HPI - General Adult General Chief complaint: Arrhythmia/Palpitations Stated complaint: Fatigue, dizziness, heart skipping Time Seen by Provider: 04/20/23 12:33 History of Present Illness HPI narrative: Patient is a very pleasant 22-year-old female who has been troubled by some fatigue as well as some irregular heartbeat issues. She has been worked up by [facility] with her primary care doctor, robotics specialist, EP doctor. She has had a SVT ablation in the past. She is currently wearing a 30 day monitor, she has had multiple tests for blood work including thyroid, electrolytes. Within the last week this has been done. She called the office today stating she was lightheaded and a little bit dizzy and did not feel and felt some irregularity in her heart and she was asked to come to ER. Here she has had telemetry looks perfectly normal and she has got a normal appearing EKG. She reports that she has not inserted further blood work and and I agree that within the last couple of weeks that should be adequate. She has not seen her eP doctor in the recently. Related Data Home Medications Medication Instructions Recorded Confirmed levetiracetam 500 mg tablet 500 mg PO DAILY 04/28/22 04/20/23 omeprazole 40 mg capsule,delayed 40 mg PO DAILY 04/28/22 04/20/23 release paroxetine HCl 20 mg tablet 20 mg PO DAILY 04/28/22 04/20/23 cephalexin 500 mg capsule 500 mg PO 3XD 03/18/23 03/18/23 levetiracetam 500 mg tablet 250 mg PO QDAY 03/18/23 03/18/23 (Keppra) lorazepam 0.5 mg tablet 0.5 mg PO DAILY PRN anxiety 03/18/23 04/20/23 Previous Rx's Medication Instructions Recorded clindamycin HCl 300 mg capsule 300 mg PO TID #21 caps 02/26/22 Allergies Allergy/AdvReac Type Severity Reaction Status Date / Time vancomycin Allergy Verified 03/18/23 19:04 Review of Systems Status of ROS: Reports: 6 or more systems reviewed and unremarkable except as noted in History and below [facility] Social History Smoking Status: Former smoker Do you use any of these nicotine containing products: None Second hand tobacco smoke exposure: No How often do you have a drink containing alcohol: monthly or less How often do you have six or more drinks on one occasion: Never AUDIT-C Alcohol total score: 1 Non-prescribed substance use: denies use service: No Exam Narrative: Exam Narrative: Objective: Patient's vital signs are within normal limits, heart exam is rate and rhythm regular without murmur no ectopy Neurologic appears grossly nonfocal, patient is alert orient x3 Const: Vital Signs, click to edit/add: Vital Signs - 24 hr 04/20/23 12:29 Temperature 98.2 F Pulse Rate [Pulse Oximeter] 90 Respiratory Rate 16 Blood Pressure [Ri ght Upper Arm] 126/77 Pulse Oximetry 99 Oxygen Delivery Me thod Room Air Course Vital Signs Vital signs: Initial Vital Signs Temperature 98.2 F 04/20/23 12:29 Temperature Source Temporal Artery Scan 04/20/23 12:29 Pulse Rate 90 04/20/23 12:29 Respiratory Rate 16 04/20/23 12:29 Blood Pressure 126/77 04/20/23 12:29 Blood Pressure Mean 93 04/20/23 12:29 Blood Pressure Position Supine 04/20/23 12:29 Pulse Oximetry 99 04/20/23 12:29 Oxygen Delivery Method Room Air 04/20/23 12:29 Vital Signs Temperature 98.2 F 04/20/23 12:29 Pulse Rate 90 04/20/23 12:29 Respiratory Rate 16 04/20/23 12:29 Blood Pressure 126/77 04/20/23 12:29 Pulse Oximetry 99 04/20/23 12:29 Oxygen Delivery Method Room Air 04/20/23 12:29 Temperature 98.2 F 04/20/23 12:29 Pulse Rate 90 04/20/23 12:29 Respiratory Rate 16 04/20/23 12:29 Blood Pressure 126/77 04/20/23 12:29 Pulse Oximetry 99 04/20/23 12:29 Oxygen Delivery Method Room Air 04/20/23 12:29 Medical Decision Making MDM Narrative Medical decision making narrative: 22-year-old female with a history of SVT and ablation, with persistent palpitation feeling, fatigue and presents to ED. Her EKG inflammatory look normal. She has had blood work done that is been normal in the last week. She has an extensive workup and has in fact under a 30 day ekg monitor through her [facility] primary care doctor and robotics specialist. I would suggest that she consult with her EP doctor who did her ablation as well as Cardiology. At this point I do not see any issue presently and I think she is neurologically and cardiovascular well at this point. She was comfortable this and wished to proceed in follow-up with Bob I think that is an appropriate course of action at this time return as needed. Discharge Plan Discharge Clinical Impression: Palpitations Patient Disposition: Home, Self-Care Condition: Stable Additional Instructions: Your EKG today looks very normal, and your telemetry looks normal as well. Recommend continue the workup he started with her primary care doctor and Cardiology group. Return to the ED as needed. Activity Level: Light activity Discharge Diet: Regular Prescriptions: No Action lorazepam 0.5 mg tablet 0.5 mg PO DAILY PRN (Reason: anxiety) levetiracetam [Keppra] 500 mg tablet 250 mg PO QDAY cephalexin 500 mg capsule 500 mg PO 3XD clindamycin HCl 300 mg capsule 300 mg PO TID Qty: 21 0RF levetiracetam 500 mg tablet 500 mg PO DAILY Patient Comments: TAKE ONE TABLET BY MOUTH EVERY DAY omeprazole 40 mg capsule,delayed release(DR/EC) 40 mg PO DAILY Patient Comments: TAKE ONE CAPSULE BY MOUTH EVERY DAY . paroxetine HCl 20 mg tablet 20 mg PO DAILY Patient Comments: TAKE ONE TABLET BY MOUTH EVERY MORNING Follow Up/Referrals: Provider,Not a Local [Primary Care Provider] - Stand Alone Forms: [employer] Info Instructions
[2023-04-20 13:05] VITALS: BP 123/78
== END 2023-04-20 13:15 | disposition home or self-care (01) ==
LOC: ED 13:03
PROVIDERS: Emergency Provider Family Medicine
DX: R00.2 Palpitations (principal)
CPT/HCPCS: 93005; 99283

== ENCOUNTER 2023-10-15 21:11 | Emergency (ER) | payer MEDICAID, SELFPAY ==
[2023-10-15] VITALS (10 sets, daily range): BP systolic 106–129; BP diastolic 73–80; PULSE 70–106; RESP 20; TEMP 36.9; O2SAT 97–99; BMI 29.9
--- NOTE | 2023-10-15 21:33 | XR_ITS ---
Patient: NAHUN CLARK Facility:?[facility] Patient ID:?[id number] Site Patient ID:?[id number]. Site :?[id number] Study:?XRay-Chest PORTABLE-10/15/2023 10:23:39 PM Ordering Physician:TREY Final Report: INDICATION: Shortness of breath TECHNIQUE: Chest radiograph 1 view COMPARISON: 06/07/2021 FINDINGS: The sensitivity and specificity of the exam are moderately limited by the patient`s body habitus. Mediastinum: The mediastinum is normal in appearance. The heart silhouette is normal in size and morphology. Lung: Both lungs are unremarkable in appearance. No sign of pleural effusion seen. No pneumothorax is identified. Bone and Soft tissue: Unremarkable for age. IMPRESSION: 1. No acute cardiopulmonary disease is seen. Dictated by: Valentin Garcia MD @ 10/15/2023 22:31:54 Signed by:?Valentin Garcia MD @10/15/2023 10:31:54 PM (Electronic Signature)
--- NOTE | 2023-10-15 21:34 | ED_ITS ---
HPI - Chest Pain General Chief Complaint: Chest Pain Stated Complaint: chest pain Time Seen by Provider: 10/15/23 21:13 History of Present Illness HPI narrative: Patient is a 23-year-old woman who had some heavy drinking last night and mGy SVT was causing some problems. She feel her heart racing this morning when she got up. She did not take her metoprolol which she normally takes. She has history of SVT which was ablated approximately year ago. Patient has had no chest pain she has had mild shortness of breath which she is improving. She did take an Ativan tonight and now feels much better. She is concerned as she woke up from a nap this afternoon with a pulse of 140. It is now 90 with sinus rhythm on EKG upon my review. Related Data Home Medications Medication Instructions Recorded Confirmed levetiracetam 500 mg tablet 500 mg PO DAILY 04/28/22 10/15/23 omeprazole 40 mg capsule,delayed 40 mg PO DAILY 04/28/22 10/15/23 release paroxetine HCl 20 mg tablet 20 mg PO DAILY 04/28/22 10/15/23 lorazepam 0.5 mg tablet 0.5 mg PO DAILY PRN anxiety 03/18/23 10/15/23 metoprolol succinate 25 mg 12.5 mg PO DAILY 10/15/23 10/15/23 tablet,extended release 24 hr paroxetine HCl 40 mg tablet 40 mg PO QAM 10/15/23 10/15/23 Allergies Allergy/AdvReac Type Severity Reaction Status Date / Time vancomycin Allergy Verified 10/15/23 21:28 Review of Systems Status of ROS Reports: 10 or more systems reviewed and unremarkable except as noted in History and below [facility] Medical History SVT (supraventricular tachycardia) ?I47.10 - Supraventricular tachycardia, unspecified (ICD-10) Social History Smoking Status: Former smoker Do you use any of these nicotine containing products: None Second hand tobacco smoke exposure: No How often do you have a drink containing alcohol: monthly or less How often do you have six or more drinks on one occasion: Never AUDIT-C Alcohol total score: 1 Non-prescribed substance use: denies use service: No Exam Narrative Exam Narrative: EXAM GENERAL: Patient appears comfortable and well. EYES: No scleral icterus. ENT: Tympanic membranes and oropharynx normal. THYROID: no thyroid nodules or thyromegaly. LYMPH: No supraclavicular or cervical lymphadenopathy. SKIN: Visible skin shows diffuse psoriasis. EXT: No dependent lower extremity pedal edema. HEART: Regular rate and rhythm with no murmurs, rubs, or gallops. LUNGS: Clear to auscultation bilaterally with no crackles or wheezes. ABD: Soft, non tender, non distended. PSYCH: Good eye contact, speech is not pressured. Const Vital Signs, click to edit/add: Vital Signs - 24 hr 10/15/23 21:25 10/15/23 21:25 10/15/23 21:30 Temperature 98.4 F Pulse Rate 91 94 Pulse Rate [Right Pulse Oximeter] 106 H Respiratory Rate 20 Blood Pressure Blood Pressure [Right Upper Arm] 129/80 Pulse Oximetry 99 98 98 Oxygen Delivery Method Room Air Room Air 10/15/23 21:31 10/15/23 21:41 10/15/23 21:45 Temperature Pulse Rate 91 83 83 Pulse Rate [Right Pulse Oximeter] Respiratory Rate Blood Pressure 118/80 106/74 Blood Pressure [Right Upper Arm] Pulse Oximetry 97 98 97 Oxygen Delivery Method Course Course ED Course: Patient seen and examined. 1 L of normal saline given troponin D-dimer CBC basic metabolic panel portable chest ordered. Vital Signs Vital signs: Initial Vital Signs Respiratory Effort Normal, Spontaneous, Non-Labored 10/15/23 21:12 Respiratory Depth Normal 10/15/23 21:12 Respiratory Pattern Normal 10/15/23 21:12 Vital Signs Temperature 98.4 F 10/15/23 21:25 Pulse Rate 91 10/15/23 21:25 Respiratory Rate 20 10/15/23 21:25 Blood Pressure 129/80 10/15/23 21:25 Pulse Oximetry 99 10/15/23 21:25 Oxygen Delivery Method Room Air 10/15/23 21:25 Temperature 98.4 F 10/15/23 21:25 Pulse Rate 83 10/15/23 21:45 Respiratory Rate 20 10/15/23 21:25 Blood Pressure 106/74 10/15/23 21:41 Pulse Oximetry 97 10/15/23 21:45 Oxygen Delivery Method Room Air 10/15/23 21:25 Medications Administered Medications: Generic Name Dose Route Start Last Admin Trade Name Mallika PRN Reason Stop Dose Admin Sodium Chloride 1,000 mls @ 1,000 mls/hr 10/15/23 21:34 10/15/23 21:45 0.9 % Sodium Chloride 1000 Ml IV 10/15/23 22:33 1,000 mls/hr .Q1H MACIE Administration MDM - Chest Pain MDM Narrative Medical decision making narrative: Patient presents with shortness of breath and symptoms of recent tachycardia after drinking episode. She had negative troponin negative D-dimer negative electrolytes negative CBC and I did give her L of saline. Her chest x-ray is unremarkable. At this time did offer reassurance asked her to continue her metoprolol and follow up with her primary physician as needed. Differential diagnosis includes but not limited to SVT atrial fibrillation ventricular tachycardia palpitations sinus tachycardia dehydration. Lab Data Labs: Lab Results 10/15/23 Range/Units 21:40 WBC 8.76 (4.50-11.00) K/uL RBC 4.84 (4.00-5.20) m/uL Hgb 12.7 (12.0-16.0) gm/dL Hct 40.6 (33.0-51.0) % MCV 84 (80-100) fL MCH 26 (26-34) pg MCHC 31 L (32-36) gm/dL RDW Coeff of Naina 12.0 (11.5-15.5) % Plt Count 242 (140-440) K/uL Neut % (Auto) 64.4 (42.0-72.0) % Lymph % (Auto) 24.8 (20-44) % [place] % (Auto) 6.5 (0.0-11.0) % Eos % (Auto) 4.0 (0.0-7.0) % Baso % (Auto) 0.2 (0.0-3.0) % Neut # (Auto) 5.64 (1.7-7.0) K/uL Lymph # (Auto) 2.17 (0.90-2.90) K/uL [place] # (Auto) 0.60 (0.00-0.90) K/UL Eos # (Auto) 0.35 (0.00-0.50) K/uL Baso # (Auto) 0.02 (0.00-0.30) K/uL Abs Immat Gran (auto) 0.01 (0.00-0.30) K/uL Imm/Tot Granulo (auto) 0.1 % D-Dimer Quant (PE/DVT) 0.31 (0.00-0.50) ug/ml Sodium 138 (135-149) mmol/L Potassium 3.8 (3.6-5.1) mmol/L Chloride 105 (96-114) mmol/L Carbon Dioxide 25 (20-32) mmol/L Anion Gap 8 (7-15) mEq/L BUN 13 (5-24) mg/dL Creatinine 0.7 (0.5-1.5) mg/dL Estimated Creat Clear 117.01 Estimated GFR 125 ml/min Glucose 101 (60-115) mg/dL Calcium 9.5 (8.4-10.6) mg/dL Troponin I < 0.01 L (0.01-0.04) ng/mL Discharge Plan Discharge Clinical Impression: Dehydration Patient Disposition: Home, Self-Care Condition: Stable Instructions: Dehydration (ED) Additional Instructions: Continue current medications Hydrate Follow-up with your doctor as needed. Activity Level: No Restrictions Discharge Diet: Regular Prescriptions: No Action lorazepam 0.5 mg tablet 0.5 mg PO DAILY PRN (Reason: anxiety) levetiracetam 500 mg tablet 500 mg PO DAILY Patient Comments: TAKE ONE TABLET BY MOUTH EVERY DAY omeprazole 40 mg capsule,delayed release(DR/EC) 40 mg PO DAILY Patient Comments: TAKE ONE CAPSULE BY MOUTH EVERY DAY . paroxetine HCl 20 mg tablet 20 mg PO DAILY Patient Comments: TAKE ONE TABLET BY MOUTH EVERY MORNING metoprolol succinate 25 mg tablet extended release 24 hr 12.5 mg PO DAILY paroxetine HCl 40 mg tablet 40 mg PO QAM Follow Up/Referrals: Provider,Not a Local [Primary Care Provider] - Stand Alone Forms: [employer] Info Instructions
[2023-10-15] MEDS: 0.9 % SODIUM CHLORIDE 1000 ml 1,000 ML IV (21:45)
--- OUTSIDE RECORDS SUMMARY | 2023-10-15 21:46 | XMS_ITS | Referral Summary ---
Author Name Unknown Organization [facility] Address [address] [place] [address] Care Team Providers Care Assembler Dc Field Ring Name Role Phone ThangKendrickDiana T [facility] Unavailable Rain Galaviz-C Unavailable Tavia Wyatt MD Unavailable Unavailable Erica Farrell APRN QUILL COLLECTOR Unavailable Rich Barrett MD Unavailable Neil Kent MD Unavailable Diana Desir [facility] Unavailable [phone] Livan Sharif MD Unavailable Catherine Cm MD Unavailable + Valery Veronica PA-C Unavailable [phone] Brea Quinn CREATIVE SERVICES INTERN QUILL COLLECTOR Unavailable Brea Quinn CREATIVE SERVICES INTERN QUILL COLLECTOR Unavailable Jose Francisco Johnson MD Unavailable Alfonso Renteria MD Unavailable + [phone] Esha Grimm PA-C Primary Care Provider [phone] Radha Lomeli CREATIVE SERVICES INTERN QUILL COLLECTOR Unavailable Jelena David OD Unavailable [phone] Pao Joseph RN Unavailable Unavailable Esha Grimm PA-C Unavailable [phone] Valery Veronica PA-C Unavailable Tyshawn Sprague MD Unavailable Rocky Zepeda DO Unavailable Philip Dumont MD Unavailable [phone] Encounters Date Type Department Care Team Description 10/13/2023 Travel 10/13/2023 10:45 AM CDT Office Visit [facility] [address] [address] Meredith Carrera PA-C Eosinophilic esophagitis (Primary Dx); Esophageal dysphagia 10/12/2023 Travel 10/10/2023 4:20 PM CDT Office Visit [facility] [address] [place] [phone] Jaron Hager PA-C Congestion of paranasal sinus (Primary Dx) 10/10/2023 Travel 10/06/2023 Telephone [facility] [address] [phone] Meredith Carrera PA-C Appointment (Reschedule of 10/06/23 appt) 10/06/2023 Travel 10/06/2023 PRE VISIT [facility] [address] [address] Rocky Zepeda DO Previsit 10/05/2023 Travel 10/05/2023 11:00 AM CDT Office Visit [facility] [address] [place] [phone] Amalia Zayas MD Vulvovaginal candidiasis (Primary Dx); Dysuria; Itching; Throat pain 10/03/2023 Telephone [facility] [address] [address] Rocky Zepeda DO Appointment (New Esophageal Pt) 09/29/2023 Telephone [facility] [address] [address] Rocky Zepeda DO Call Back (Discuss being seen sooner (increased issues with swallowing) ) 09/29/2023 12:13 AM CDT - 09/29/2023 12:14 AM CDT Emergency [facility] Emergency Dept [address] [place] [phone] Discharge Disposition: Left Without Being Seen 09/28/2023 Travel 09/21/2023 MyC Refill [address] [address] Esha Grimm PA-C Refill Request 09/21/2023 4:00 PM CDT Virtual Visit [address] [phone] Diana Desir, [facility] Anxiety (Primary Dx); Moderate major depression (H) 09/20/2023 MyC Medical Advice [facility] [address] [address] Jeffery Vieira, RN 09/20/2023 Telephone [facility] [address] [address] Jeffery Vieira, RN 09/20/2023 MyC Medical Advice [address] [address] Esha Grimm PA-C 09/16/[address] [address] Marija Edgar APRN QUILL COLLECTOR Medication Refill 09/12/2023 1:15 PM MARKET DEVELOPMENT ANALYST - 09/12/2023 1:45 PM MARKET DEVELOPMENT ANALYST Surgery [facility] [address] [phone] Tyshawn Sprague MD Esophagoscopy, gastroscopy, duodenoscopy (EGD), combined 09/12/2023 12:29 PM MARKET DEVELOPMENT ANALYST - 09/12/2023 2:51 PM MARKET DEVELOPMENT ANALYST Hospital Encounter [facility] [address] [phone] Tyshawn Sprague MD Discharge Disposition: Home or Self Care 09/08/2023 MyC Medical Advice [facility] [address] [address] Marija Polanco RN 09/08/2023 MyC Medical Advice [facility] [address] [phone] Mary Kelsey 09/08/2023 Telephone [facility] [address] [address] Mary Kelsey Procedure 09/07/2023 Travel 09/07/2023 6:28 PM MARKET DEVELOPMENT ANALYST - 09/07/2023 9:49 PM MARKET DEVELOPMENT ANALYST Emergency [facility] Dept [address] [place] [phone] Brea Meyer MD Chest pain, unspecified type Discharge Disposition: Home or Self Care 09/06/2023 MyC Medical Advice [address] [phone] Esha rGimm PA-C 09/02/2023 MyC Medical Advice [address] [phone] Esha Grimm PA-C Outreach 09/02/[address] [address] Esha Grimm PA-C Prior Auth - Medication (tretinoin (RETIN-A) 0.05 % external cream - EPA DENIED) 09/01/2023 MyC Medical Advice [address] [address] Diana Desir, [facility] 09/01/2023 Travel 09/01/2023 2:00 PM MARKET DEVELOPMENT ANALYST Lab [facility] [address] [place] [phone] Breast tenderness; Screen for STD (sexually transmitted disease) 09/01/2023 11:30 AM MARKET DEVELOPMENT ANALYST Virtual Visit [address] [address] Esha Grimm PA-C Breast tenderness (Primary Dx); Anxiety; Acne, unspecified acne type; Vaginal discharge; Bacterial vaginosis; Screen for STD (sexually transmitted disease) 08/31/2023 MyC Medical [facility]ice [facility] [address] [place] [address] Amalia Reyes RN 08/30/[address] [facility] [address], [address] [place] [address] Alfonso Renteria MD 08/29/2023 MyC Medical Advice [address] [address] Esha Grimm PA-C 08/25/2023 MyC Medical Advice [address] [address] Diana Desir, [facility] 08/25/2023 MyC Medical Advice [facility] [address] [address] Marija Polanco RN 08/25/2023 MyC Medical Advice [facility] [address] [phone] Marija Polanco, RN 08/25/2023 Telephone [facility] [address] [place] [phone] Marija Polanco, RN Pt. Information/instructi on (EGD) 08/25/2023 Telephone [facility] Epilepsy [facility] [address] [place] [address] Alfonso Renteria MD 08/25/[address] [phone] Esha Grimm PA-C Medication Question 08/25/2023 MyC Medical Advice [address] [address] Diana Desir, [facility] 08/24/2023 4:00 PM MARKET DEVELOPMENT ANALYST Virtual Visit [address] [phone] Diana Desir, [facility] Anxiety (Primary Dx); Moderate major depression (H) 08/11/2023 MyC Medical Advice [address] [address] Pao Joseph RN 08/10/2023 MyC Medical Advice [address] [address] Esha Grimm PA-C 08/10/2023 10:30 AM MARKET DEVELOPMENT ANALYST E-Visit [address] [phone] Esha Grimm PA-C Other (Entered automatically based on shira... 08/10/[address] [address] Esha Grimm PA-C LAB REQUEST 08/04/2023 Telephone [facility] [address] [address] Esha Grimm PA-C Forms 08/04/2023 MyC Medical Advice [address] [address] Diana Desir, [facility] 08/01/2023 MyC Medical Advice [address] [address] Esha Grimm PA-C 08/01/[address] [address] Esha Grimm PA-C Call Back 08/01/2023 MyC Medical Advice [address] [address] Esha Grimm PA-C Outreach 08/01/2023 9:00 AM MARKET DEVELOPMENT ANALYST Ancillary Procedure [address] [address] Esha Grimm PA-C Finger pain, right 08/01/2023 Travel 08/01/2023 8:30 AM MARKET DEVELOPMENT ANALYST Office Visit [address] [address] Esha Grimm PA-C Finger pain, right (Primary Dx) 07/29/2023 MyC Medical Advice [address] [address] Pao Joseph, VJ 07/27/2023 MyC Medical Advice [address] [address] Diana Desir, [facility] 07/27/2023 4:00 PM MARKET DEVELOPMENT ANALYST Virtual Visit [address] [address] Diana Desir, [facility] Anxiety (Primary Dx); Moderate major depression (H); Paroxysmal supraventricular tachycardia; Gastroesophageal reflux disease with esophagitis without hemorrhage; Seizure (H); Psoriasis 07/21/2023 Travel 07/21/2023 9:40 AM MARKET DEVELOPMENT ANALYST Ancillary Procedure [address] [phone] Esha Grimm PA-C Abdominal discomfort, bilateral lower quadrant from Last 3 Months Allergies Active Allergy Reactions Criticality Noted Date Comments Vancomycin 04/26/2022 Medications Medication Sig Dispensed Refills Start Date End Date Status triamcinolone (KENALOG) 0.1 % external ointmentIndicat ions:Psoriasis Apply topically 2 times daily To psoriasis on body or arms/legs until healed then stop 80 g 2 3 Active tacrolimus (PROTOPIC) 0.1 % external ointmentIndicat ions:Psoriasis Apply thin layer to psoriasis on thinner skin of face/genitals up to twice daily as needed. 60 g 11 3 Active ketoconazole (NIZORAL) 2 % external shampooIndicati ons:Psoriasis Use every 1-2 days when flared. Leave in few minutes before rinsing. Use twice weekly to prevent flares. 120 mL 11 3 Active Lidocaine (LIDOCARE) 4 % PatchIndication s:Acute left-sided low back pain with left-sided sciatica,Sacroi liac joint pain,Neck pain Place 1 patch onto the skin every 24 hours To prevent lidocaine toxicity, patient should be patch free for 12 hrs daily. 30 patch 1 3 Active levonorgestrel (MIRENA) 52 MG (20 mcg/day) IUD by Intrauterine route once 0 Active metoprolol succinate ER (TOPROL XL) 25 MG 24 hr tabletIndicatio ns:Palpitations Take 0.5 tablets (12.5 mg) by mouth daily 45 tablet 1 3 Active LORazepam (ATIVAN) 0.5 MG tabletIndicatio ns:Anxiety Take 1 tablet (0.5 mg) by mouth daily as needed for anxiety 30 tablet 0 4 Active clindamycin (CLEOCIN T) 1 % external lotionIndicatio ns:Acne, unspecified acne type Apply topically 2 times daily 60 mL 1 4 Active tretinoin (RETIN-A) 0.05 % external creamIndication s:Acne, unspecified acne type Apply topically at bedtime 45 g 0 4 Active omeprazole (PRILOSEC) [address] capsuleIndicati ons:Epigastric pain TAKE 1 CAPSULE BY MOUTH DAILY. 90 capsule 3 4 Active PARoxetine (PAXIL) 40 MG tabletIndicatio ns:Anxiety Take 1 tablet (40 mg) by mouth every morning 90 tablet 1 4 Active amoxicillin-cla vulanate (AUGMENTIN) 875-125 MG tabletIndicatio ns:Congestion of paranasal sinus Take 1 tablet by mouth 2 times daily for 10 days 20 tablet 0 4 10/20/19 24 Active omeprazole (PRILOSEC) [address] capsuleIndicati ons:Epigastric pain Take 1 capsule (40 mg) by mouth daily 90 capsule 3 3 09/16/19 24 Discontinued PARoxetine (PAXIL) 40 MG tablet Take 40 mg by mouth every morning 0 09/21/19 24 Discontinued(Reo rder (No AVS)) fluconazole (DIFLUCAN) 150 MG tabletIndicatio ns:Vulvovaginal candidiasis Take 150 mg every 3 days for up to four doses 4 tablet 0 4 10/14/19 24 Active Problems Patient Care Coordination No te Formatting of this note is d ifferent from the original. EMERGENCY CARE PLAN At each Emergency Department visit, we will evaluate this patient to determine if an emergency medical condition is present. Brief History of Condition: Kim Johnson has a history of seizures, SVT, depression and anxiety who often presents to the Emergency Department due to chest pain, palpitations, shortness of breath and SVT episodes. As of Fall 2020, she is on a half tab of metoprolol 25mg, as she has had dizziness and low blood pressure with a full tab historically. She has met with Dr. Burrell with [facility] and has declined elective ablation in the past. Summary of Care: Palpitations, Shortness of breath, Chest Pain: Ms. Johnson often present with vague chest pain complaints and palpitations. Extensive ED work ups have been performed in the past. Outpatient Holter monitors and cardiology visits have determined that SVT is the most likely etiology of these ongoing symptoms. ED care plan: 1. Chronic Chest Pain & Palpitations: The patient has undergone multiple negative ED workups. a. Goal is to reduce CT imaging necessity to prevent unnecessary radiation exposure. Recommend using PERC score to obviate need for D-Dimer and/or CT. 2. Advanced Imaging Utilization: Frequent radiographic imaging represents a significant health risk to the patient. Recommend imaging only if acute exam findings, significant laboratory abnormality, or significant concern for new or acute finding. 3. Frequent ED Visits: Encourage follow up with PMD and/or Cardiology. If available in ED consider consultation with ED Chief Operating Officer. Relevant Medical History (at time Care Plan initiated): Seizures (on 500mg Keppra daily), SVT (on 12.5mg metoprolol daily), Anxiety and Depression Past imaging: CT: 3 in the 12 months prior to initiation of care plan. MRI: 0 in the 12 months prior to initiation of care plan. ED Ultrasound: 8 in the 12 months prior to initiation of care plan. Total [facility] ED visits in 12 months prior to initiation of Care Plan: 11 Total [facility] Hospital Admissions in 12 months prior to initiation of Care Plan: 0 (she has technically had 2 admissions due to related issues with OBGYN) Expected home rescue plan: Metoprolol 12.5mg PRN PCP: Marija Edgar APRN CNP - [facility] Medicine - [facility] Specialists: Dr. Galo Burrell - Cardiology - [facility] Cesar Dotson - Neurology [facility] Epilepsy Care Care Coordination: Has worked with Community Health Worker in past - ARACELIS Parker, Clinical Care Coordination - [facility] ([place], [place] and [place]) - Follow up plan after an ED visit: Marija Edgar APRN CNP - [facility] Medicine - [facility] Initiated: 2020 Problem Noted Date Diagnosed Date Paroxysmal supraventricular tachycardia (H24) SVT (supraventricular tachycardia) (H24) 022 Encounter for pharmacogenetic testing 04/17/2021 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 KALYN (generalized anxiety disorder) 09/29/2020 Asthma 06/04/2020 Right ureteral stone 05/27/2020 Overview: Added automatically from request for surgery [id number] Left ureteral stone 05/27/2020 Overview: Added automatically from request for surgery [id number] Head ache 02/18/2020 Seizure 05/02/2019 Depressed 05/02/2019 Anxiety 05/02/2019 Tobacco abuse counseling 05/02/2019 Psoriasis 05/02/2019 Resolved Problems Problem Noted Date Diagnosed Date Resolved Date Neck pain 08/25/2022 08/17/2023 Lower back pain 08/25/2022 08/17/2023 Term 01/13/2021 10/11/2022 Encounter for triage in patient 12/09/2020 04/18/2023 Immunizations Name Administration Dates Next Due DTAP (<7y) 11/23/2004, 1,2000,06/23 Flu, Unspecified 05/26/2009, 7,07/22/2003,06/03 HEPATITIS A (PEDS 12M-18Y) 03/01/2012,08/10/2011 HIB (PRP-T) 2000,2000,2000 HPV Quadrivalent 03/01/2012,10/27/2011, 2 HepB, Unspecified 08/07/2001,03/28/2001,11/05/19 01 Hepatitis A Vac Ped/Adol-3 Dose 03/01/2012,08/10 Hepatitis B, Peds 08/07/2001,03/28/2001,11/05/19 01 Influenza (H1N1) 06/06/2009 Influenza Vaccine >6 months,quad, PF ,03/27/2020,05/02/2019,05/16,04/12/2016,08/12/2014,04/24/2013 Influenza Vaccine IM Ages 6- 35 Months 4 Valent (PF) 04/24/2013 Influenza, seasonal, injectable, PF 10/2012,05/25/2011,05/13/2010,05/26,07/22/2003 MMR 01/15/2021,11/23/2004,08/07/2001 Meningococcal ACWY (Menactra??) 08/10/2011 Meningococcal ACWY (Menveo??) 05/16/2017 Nasal Influenza Vaccine 2-49 (FluMist) 7 Pneumococcal (PCV 7) 2000,2000,06/23 Pneumococcal 23 valent 09/22/2021 Poliovirus, inactivated (IPV) 11/23/2004 ,03/28/2001,2000,06/23 TDAP Vaccine (Adacel) 11/11/2020,08/10/2011 TRIHIBIT (DTAP/HIB, <7y) 08/07/2001 Varicella 03/05/2013,10/17/2001 Social History Tobacco Use Types Packs/Day Years Used Date Smoking Tobacco: Former Cigarettes 1 Q uit: 12/07/2019 Other Passive Smoke Exposure: Past Smokeless Tobacco: Never Tobacco Cessation:Counseling Given: Not Answered Alcohol Use Standard Drinks/Week Comments Not Currently 0 (1 standard drink = 0.6 oz pur e alcohol) social Social Connection and Isolation Panel [NHANES] A nswer Date Recorded In a typical week, how many times do you talk on the phone with family, friends, or neighbors? Three times a week 03/10/20 23 How often do you get togethe r with friends or relatives? Twice a week 03/10/2023 How often do you attend chur ch or jain services? 1 to 4 times per year 03/10/2023 Do you belong to any clubs o r organizations such as worship groups, unions, fraternal or athletic groups, or school groups? No 03/10/2023 Attends Club or Organization Meetings Not on shlomo e 03/10/2023 Are you , , di vorced, , never , or living with a partner? 03/10/2023 AUDIT-C Answer Date Recorded Q1: How often do you have a drink containing alc ohol? Monthly or less 03/10/2023 Q2: How many drinks containi ng alcohol do you have on a typical day when you are drinking? 1 or 2 03/10/2023 Q3: How often do you have si x or more drinks on one occasion? Never 03/10/2023 PHQ-2 Answer Date Recorded PHQ-2 Score 0 06/20/2023 [facility] - Occupational Stress Questionnaire Answer Date Recorded Do you feel stress - tense, restless, nervous, or anxious, or unable to sleep at night because your mind is troubled all the time - these days? To some extent 03/10/2023 Exercise Vital Sign Answer Date Recorde d On average, how many days pe r week do you engage in moderate to strenuous exercise (like a brisk walk)? 2 days 03/10/2023 On average, how many minutes do you engage in exercise at this level? 30 min 03/10/2023 [place] Depression Scale Answer Date Recorded [place] Depression Score 5 01/14/2021 Last EPDS Self Harm Result Not on file 01/14 Adolescent Education Answer Date Record ed Getting School Help Needed Not on file 04/04 Food Insecurity Answer Date Recorded Within the past 12 months, d id you worry that your food would run out before you got money to buy more? No 07/14/2023 Within the past 12 months, d id the food you bought just not last and you didn? t have money to get more? No 07/14/2023 Housing Stability Answer Date Recorded Do you have housing? Yes 07/14/2023 Are you worried about losing your housing? No 07/14/2023 Financial Resource Strain Answer Date R ecorded Within the past 12 months, h ave you or your family members you live with been unable to get utilities (heat, electricity) when it was really needed? No 07/14/2023 Transportation Needs Answer Date Record ed Within the past 12 months, h as lack of transportation kept you from medical appointments, getting your medicines, non-medical meetings or appointments, work, or from getting things that you need? No 07/14/2023 Interpersonal Safety Answer Date Record ed Do you feel physically and e motionally safe where you currently live? Yes 06/20/2023 Within the past 12 months, h ave you been hit, slapped, kicked or otherwise physically hurt by someone? No 06/20/2023 Within the past 12 months, h ave you been humiliated or emotionally abused in other ways by your partner or ex-partner? No 06/20/2023 Education Answer Date Recorded What is the highest level of school you have completed or the highest degree you have received? 12th grade 08/07/2020 Sex and Gender Information Value Date Recorded Sex Assigned at Female 03/02/2021 5:45 PM CDT Gender Identity Female 03/02/2021 5:45 PM CDT Sexual Orientation Straight 02/28/2020 12 :51 AM CDT Last Filed Vital Signs Vital Sign Reading Time Taken Comments Blood Pressure 105/68 10/13/2023 10:31 AM CDT Pulse 70 10/13/2023 10:31 AM CDT Temperature 36.9 ??C (98.4 ??F) 10/10/2023 4:48 PM CD T Respiratory Rate 16 10/10/2023 4:48 PM CDT Oxygen Saturation 100% 10/13/2023 10:31 AM CDT Inhaled Oxygen Concentration - - Weight 85 kg (187 lb 6.4 oz) 10/13/2023 10:31 AM CDT Height 167.6 cm (5' 6) 10/13/2023 10:31 AM CDT Body Mass Index 30.25 10/13/2023 10:31 AM CDT Plan of Treatment Upcoming Encounters Date Type Department Care Team (Late st Contact Info) Description 10/25/2023 11:30 AM CDT Virtual Visit [facility] [address] [place] [phone] Nelly [place], RD [address] [place] [address] 11/03/2023 8:00 AM CDT Office Visit [address] [address] Valery Veronica PAUcheC [address] [place] [address] 11/29/2023 8:00 AM CDT Office Visit [facility] [address] [place] [phone] Esha Grimm PA-C [address] [place] [address] 01/02/2024 8:00 AM CDT Office Visit [facility] [address] [place] [address] See Claudio PA-C [address] [place] [address] Kelli Perez MD [address] [facility] [address] [place] [address] Procedures Procedure Name Priority Date/Time Associated Diagnosis Comments GROUP A STREPTOCOCCUS PCR THROAT SWAB Routine 10/05/2023 11:41 AM CDT Throat pain URINE CULTURE Routine 10/05/2023 11:41 AM CDT Dysuria WET PREPARATION Routine 10/05/2023 11:41 AM CDT Itching STREPTOCOCCUS A RAPID SCREEN W REFELX TO PCR Routine 10/05/2023 11:41 AM CDT Throat pain URINE MICROSCOPIC EXAM Routine 11:41 AM CDT Dysuria UA MACROSCOPIC WITH REFLEX TO MICRO AND CULTURE Routine 10/05/2023 11:41 AM CDT Dysuria SURGICAL PATHOLOGY EXAM Routine 09/12/2023 1:41 PM MARKET DEVELOPMENT ANALYST ESOPHAGOGASTRODUODENOS COPY, WITH BIOPSY 09/12/2023 1:10 PM MARKET DEVELOPMENT ANALYST Bloating Dysphagia, unspecified type UPPER GI ENDOSCOPY Routine 09/12/2023 1: 02 PM MARKET DEVELOPMENT ANALYST TROPONIN T, HIGH SENSITIVITY STAT 09/07/2023 8:49 PM MARKET DEVELOPMENT ANALYST CBC WITH PLATELETS & DIFFERENTIAL STAT 09/07/2023 6:59 PM MARKET DEVELOPMENT ANALYST EXTRA PURPLE TOP TUBE STAT 09/07/2023 6:59 PM MARKET DEVELOPMENT ANALYST EXTRA RED TOP TUBE STAT 09/07/2023 6: 59 PM MARKET DEVELOPMENT ANALYST CBC WITH PLATELETS AND DIFFERENTIAL STAT 09/07/2023 6:59 PM MARKET DEVELOPMENT ANALYST EXTRA TUBE STAT 09/07/2023 6:59 PM MARKET DEVELOPMENT ANALYST TROPONIN T, HIGH SENSITIVITY STAT 09/07/2023 6:59 PM MARKET DEVELOPMENT ANALYST BASIC METABOLIC PANEL STAT 09/07/2023 6:59 PM MARKET DEVELOPMENT ANALYST EKG 12-LEAD, TRACING ONLY STAT 09/07/2023 6:14 PM MARKET DEVELOPMENT ANALYST CHLAMYDIA TRACHOMATIS/NEISSERIA GONORRHOEAE BY PCR Routine 09/01/2023 2:31 PM MARKET DEVELOPMENT ANALYST Screen for STD (sexually transmitted disease) WET PREPARATION Routine 09/01/2023 2:31 PM MARKET DEVELOPMENT ANALYST Vaginal discharge Screen for STD (sexually transmitted disease) TESTOSTERONE FREE AND TOTAL Routine 09/01/2023 2:25 PM MARKET DEVELOPMENT ANALYST Breast tenderness HCG QUALITATIVE Routine 09/01/2023 2:25 PM MARKET DEVELOPMENT ANALYST Breast tenderness TESTOSTERONE FREE AND TOTAL Routine 09/01/2023 2:25 PM MARKET DEVELOPMENT ANALYST Breast tenderness SEX HORMONE BINDING GLOBULIN Routine 09/01/2023 2:25 PM MARKET DEVELOPMENT ANALYST Breast tenderness TREPONEMA ABS W REFLEX TO RPR AND TITER Routine 09/01/2023 2:25 PM MARKET DEVELOPMENT ANALYST Screen for STD (sexually transmitted disease) HIV ANTIGEN ANTIBODY COMBO Routine 09/01/2023 2:25 PM MARKET DEVELOPMENT ANALYST Screen for STD (sexually transmitted disease) PROGESTERONE Routine 09/01/2023 2:25 PM MARKET DEVELOPMENT ANALYST Breast tenderness ESTRADIOL Routine 09/01/2023 2:25 PM MARKET DEVELOPMENT ANALYST Breast tenderness PROLACTIN Routine 09/01/2023 2:25 PM MARKET DEVELOPMENT ANALYST Breast tenderness LUTEINIZING HORMONE Routine 09/01/2023 2 :25 PM MARKET DEVELOPMENT ANALYST Breast tenderness FOLLICLE STIMULATING HORMONE Routine 09/01/2023 2:25 PM MARKET DEVELOPMENT ANALYST Breast tenderness XR HAND RIGHT G/E 3 VIEWS Routine 08/01/2023 9:04 AM MARKET DEVELOPMENT ANALYST Finger pain, right US PELVIC TRANSABDOMINAL AND TRANSVAGINAL Routine 07/21/2023 9:57 AM MARKET DEVELOPMENT ANALYST Abdominal discomfort, bilateral lower quadrant from Last 3 Months Results * Streptococcus A Rapid Screen w/Reflex to PCR - Clinic Collect (10/05/2023 11:41 AM CDT) [facility] Strep antigen Negative Negative 10/05/2023 12:07 PM CDT LABORATORY Swab STRUCTURE OF ANTERIOR PORTION OF NECK / Unknown Non-blood Collection / Unknown 10/05/2023 11:41 AM CDT 10/05/2023 11:59 AM CDT Amalia Zayas MD LAB - MICRO GENERAL ORDERABLES [facility] [address] [facility] (no room number, 1st floor of clinic) [place] [address], [facility] [phone] * Group A Streptococcus PCR Throat Swab (10/05/2023 11:41 AM CDT) [facility] A strep by PCR Not Detected Not Detected 10/05/2023 5:36 PM CDT [facility] Swab STRUCTURE OF ANTERIOR PORTION OF NECK / Unknown Non-blood Collection / Unknown 10/05/2023 11:41 AM CDT 10/05/2023 12:07 PM CDT Narrative [facility] - 10/05/2023 5:36 PM CDT The Xpert Xpress Strep A test, performed on the [employer], is a rapid, qualitative in vitro diagnostic test for the detection of Streptococcus pyogenes (Group A ? - hemolytic Streptococcus, Strep A) in throat swab specimens from patients with signs and symptoms of pharyngitis. The Xpert Xpress Strep A test can be used as an aid in the diagnosis of Group A Streptococcal pharyngitis. The assay is not intended to monitor treatment for Group A Streptococcus infections. The Xpert Xpress Strep A test utilizes an automated real-time polymerase chain reaction (PCR) to detect Streptococcus pyogenes DNA. Amalia Zayas MD LAB - MICRO GENERAL ORDERABLES [facility] Inf. Diseases Diag. Lab [address] [facility], [address] [place] [address] * (ABNORMAL) UA Macroscopic with reflex to Microscopic and Culture - Clinic Collect (10/05/2023 11:41AM CDT) Color Urine Yellow Colorless, Straw, Light Yellow, Yellow 10/05/2023 11:52 AM CDT [facility] Appearance Urine Clear Clear 10/05/19 11:52 AM CDT [facility] Glucose Urine Negative Negative mg/dL 10/05/2023 11:52 AM CDT [facility] Bilirubin Urine Negative Negative 11:52 AM CDT [facility] Ketones Urine Negative Negative mg/dL 10/05/2023 11:52 AM CDT [facility] Specific [place] Urine 1.010 1.003 - 1.035 10/05/2023 11:52 AM CDT [facility] Blood Urine Trace(A) Negative 10/05/2023 11:52 AM CDT [facility] pH Urine 6.0 5.0 - 7.0 10/05/2023 11:52 AM CDT [facility] Protein Albumin Urine Negative Negative mg/dL 10/05/2023 11:52 AM CDT LABORATORY Urobilinogen Urine 0.2 0.2, 1.0 E.U./dL 10/05/2023 11:52 AM CDT LABORATORY Nitrite Urine Negative Negative 10/05/2023 11:52 AM CDT LABORATORY Leukocyte Esterase Urine Moderate(A) Negative 10/05/2023 11:52 AM CDT LABORATORY Urine URINE SPECIMEN OBTAINED BY CLEAN CATCH PROCEDURE / Unknown Non-blood Collection / Unknown 10/05/2023 11:41 AM CDT 10/05/2023 11:48 AM CDT Amalia Zayas MD LAB - URINE ORDERABL ES Performing Organization Address [facility]/ZIP Co de Phone Number LABORATORY [facility] [address] [facility] Lab (no room number, [facility]st [facility] of [facility]) [place] [id number], [facility] [phone] * (ABNORMAL) Wet prep - lab collect (10/05/2023 11:41 AM CDT) Only the most recent of2 resultswithin the time period is included. Trichomonas Absent Absent RE[facility] 10/05/2023 11:53 AM CDT LABORATORY Yeast Present(A) Absent [facility] 10/05/2023 11:53 AM CDT LABORATORY Clue Cells Absent Absent [facility] 10/05/2023 11:53 AM CDT LABORATORY WBCs/high power field 2+(A) None [facility] 10/05/2023 11:53 AM CDT LABORATORY Swab VAGINAL STRUCTURE / Unknown Non-blood Collection / Unknown 10/05/2023 11:41 AM CDT 10/05/2023 11:53 AM CDT Amalia Zayas MD LAB - MICRO GENERAL ORDERABLES LABORATORY [facility] [address] [facility] Lab (no room number, [facility]st [facility] [place] [address], [facility] [phone] * (ABNORMAL) Urine Microscopic Exam (10/05/2023 11:41 AM CDT) Bacteria Urine Moderate( A) None Seen /HPF [facility] 10/05/2023 11:56 AM CDT [facility] RBC Urine 0-2 0-2 /HPF /HPF [facility] 10/05/2023 11:56 AM CDT [facility] WBC Urine 5-10(A) 0-5 /HPF /HPF [facility] 10/05/2023 11:56 AM CDT [facility] Squamous Epithelials Urine Few(A) None Seen /LPF [facility] 10/05/2023 11:56 AM CDT [facility] Budding Yeast Urine Few(A) None Seen /HPF [facility] 10/05/2023 11:56 AM CDT [facility] Hyphal Yeast Urine Few(A) None Seen /HPF [facility] 10/05/2023 11:56 AM CDT [facility] Mucus Urine Present(A ) None Seen /LPF [facility] 10/05/2023 11:56 AM CDT [facility] Urine URINE SPECIMEN OBTAINED BY CLEAN CATCH PROCEDURE / Unknown Non-blood Collection / Unknown 10/05/2023 11:41 AM CDT 10/05/2023 11:48 AM CDT Amalia Zayas MD LAB - URINE ORDERABL ES [facility] [address] [facility] Lab (no room number, 1st floor of [facility] [place] [address] [phone] * Urine Culture (10/05/2023 11:41 AM CDT) Culture <10,000 CFU/mL Mixture of Urogenital Darlene 10/06/2023 11:51 AM CDT [facility] Urine URINE SPECIMEN OBTAINED BY CLEAN CATCH PROCEDURE / Unknown Non-blood Collection / Unknown 10/05/2023 11:41 AM CDT 10/05/2023 11:52 AM CDT Amalia Zayas MD LAB - MICRO GENERAL ORDERABLES [facility] Inf. Diseases Diag. Lab [address] [facility], [address] [place] [address], [facility] * Surgical Pathology Exam (09/12/2023 1:41 PM MARKET DEVELOPMENT ANALYST) Case Report Surgical Pathology Report ? Case: [id number] ? Authorizing Provider: ??Tyshawn Sprague MD ?Collected: ? 09/12/2023 01:41 PM ? Ordering Location: ? [facility] ?Received: ?09/12/2023 03:09 PM ? [facility] ? Pathologist: ? Lázaro Jordan MD ? Specimens: ?? A) - Small Intestine, Duodenum, gastric evaluate for H. pylori ? B) - Esophagus, Distal, evaluate for eosinophilic esophagitis ? C) - Esophagus, Proximal, evaluate for eosinophilic esophagitis ? 09/14/2023 7:16 AM [facility] Final Diagnosis A(1). Stomach, biopsy: - Oxyntic type gastric mucosa with mild chronic inflammation. - Negative for H. Pylori organisms on routine stains. - Negative for intestinal metaplasia. -Negative for dysplasia or malignancy B(2). Esophagus, distal, biopsy: -Squamous mucosa with prominent intraepithelial eosinophils and prominent reactive epithelial changes. -Approximately 40 eosinophils per high-power field identified in maximal focus. -Negative for intestinal metaplasia. -Negative for dysplasia or malignancy C(3). Esophagus, proximal, biopsy: -Squamous mucosa with prominent intraepithelial eosinophils and prominent reactive epithelial changes. -Approximately 25 eosinophils per high-power field identified in maximal focus. -Negative for intestinal metaplasia. -Negative for dysplasia or malignancy 09/14/2023 7:16 AM [facility] Comment Prominent intra-epithelial eosinophilia (approximately 40 eosinophils per high-power field in the distal esophagus, and 25 eosinophils per high-power field in the proximal esophagus) is identified. In the appropriate clinical and endoscopic setting, findings are compatible with eosinophilic esophagitis. 09/14/2023 7:16 AM [facility] Clinical Information Procedure: Esophagoscopy, gastroscopy, duodenoscopy (EGD), combined Pre-op Diagnosis: Bloating [R14.0] Dysphagia, unspecified type [R13.10] Post-op Diagnosis: R14.0 - Bloating [ICD-10-CM] R13.10 - Dysphagia, unspecified type [ICD-10-CM] 09/14/2023 7:16 AM [facility] Gross Description A(1). Small Intestine, Duodenum, gastric evaluate for H. pylori: The specimen is received in formalin, labeled with the patient's name, medical record number and other identifying information designated duodenal biopsy. It consists of 4 rose-pink soft tissue fragments, 0.1-0.3 cm. Entirely submitted in 1 cassette. B(2). Esophagus, Distal, evaluate for eosinophilic esophagitis: The specimen is received in formalin, labeled with the patient's name, medical record number and other identifying information designated distal esophagus biopsy. It consists of 5 pale-rose soft tissue fragments, 0.1-0.4 cm. Entirely submitted in 1 cassette. C(3). Esophagus, Proximal, evaluate for eosinophilic esophagitis: The specimen is received in formalin, labeled with the patient's name, medical record number and other identifying information designated proximal esophagus biopsy. It consists of 6 pink-rose soft tissue fragments, 0.1-0.4 cm. Entirely submitted in 1 cassette. (Margret David Biopsy Tech) 09/14/2023 7:16 AM [facility] Microscopic Description Microscopic examination was performed. 09/14/2023 7:16 AM [facility] Performing Labs The technical component of this testing was completed at [facility] 09/14/2023 7:16 AM [facility] Case Images 09/14/2023 7:16 AM [facility] Biopsy DUODENAL STRUCTURE / Unknown 09/12/2023 1:41 PM MARKET DEVELOPMENT ANALYST 09/12/2023 3:09 PM MARKET DEVELOPMENT ANALYST Specimen from unspecified body site obtained by biopsy (specimen) STRUCTURE OF LOWER THIRD OF ESOPHAGUS / Unknown 09/12/2023 1:42 PM MARKET DEVELOPMENT ANALYST 09/12/2023 3:09 PM MARKET DEVELOPMENT ANALYST Specimen from unspecified body site obtained by biopsy (specimen) STRUCTURE OF UPPER THIRD OF ESOPHAGUS / Unknown 09/12/2023 1:44 PM MARKET DEVELOPMENT ANALYST 09/12/2023 3:09 PM MARKET DEVELOPMENT ANALYST Tyshawn Sprague MD LAB - [place] LABORATORY [facility] Lab [address] [facility] Lab (1st floor, no room number) [place] [address], [place] [phone] LABORATORY [facility] Acute Care Lab [address] 1st floor, [address] [place] [address], [place] [phone] * UPPER GI ENDOSCOPY (09/12/2023 1:02 PM MARKET DEVELOPMENT ANALYST) Upper GI Endoscopy [facility] [address] ??[place] ??[phone] ___ Patient Name: Kim Johnson ?Procedure Date: 09/12/2023 1:02 PM ? Date of : 2000 ? Admit Type: Outpatient Age: 23 ? Room: [place] [address] Note Status: Finalized ?Attending MD: TYSHAWN SPRAGUE MD, Instrument Name: 505 [id number] Gastroscope ___ Procedure: ?Upper GI endoscopy Indications: ?Follow-up of gastro-esophageal reflux disease, ?Unexplained chest pain Providers: ?TYSHAWN SPRAGUE MD, Jess Bucio, VJ Referring MD: ? SEE CLAUDIO Medicines: ?Midazolam 4 mg IV, Fentanyl 100 micrograms IV Complications: ?No immediate complications. ___ Procedure: ?Pre-Anesthesia Assessment: ?- Prior to the procedure, a History and Physical ?was performed, and patient medications and ?allergies were reviewed. The patient's tolerance of ?previous anesthesia was also reviewed. The risks ?and benefits of the procedure and the sedation ?options and risks were discussed with the patient. ?All questions were answered, and informed consent ?was obtained. Prior Anticoagulants: The patient has ?taken no anticoagulant or antiplatelet agents. ASA ?Grade Assessment: II - A patient with mild systemic ?disease. After reviewing the risks and benefits, ?the patient was deemed in satisfactory condition to ?undergo the procedure. ?After obtaining informed consent, the endoscope was ?passed under direct vision. Throughout the ?procedure, the patient's blood pressure, pulse, and ?oxygen saturations were monitored continuously. The ?endoscope 505 was introduced through the mouth, and ?advanced to the third part of duodenum. The upper ?GI endoscopy was accomplished without difficulty. ?The patient tolerated the procedure well. ? Findings: ? Mucosal changes including longitudinal furrows and congestion (edema) ? were found in the entire esophagus. Esophageal findings were graded ? using the Eosinophilic Esophagitis Endoscopic Reference Score ? (EoE-EREFS) as: Edema Grade 1 Present (decreased clarity or absence of ? vascular markings), Rings Grade 0 None (no ridges or rings seen), ? Exudates Grade 0 None (no white lesions seen), Furrows Grade 1 Mild ? (vertical lines without visible depth) and Stricture none (no stricture ? found). Biopsies were obtained from the proximal and distal esophagus ? with cold forceps for histology of suspected eosinophilic esophagitis. ? The exam of the esophagus was otherwise normal. ? A 3 cm hiatal hernia was present. ? Patchy moderate inflammation characterized by congestion (edema), ? erosions and erythema was found in the gastric antrum. Biopsies were ? taken with a cold forceps for histology. ? The gastroesophageal flap valve was visualized endoscopically and ? classified as Hill Grade IV (no fold, wide open lumen, hiatal hernia ? present). ? The exam of the stomach was otherwise normal. ? The examined duodenum was normal. ? Impression: ? - Esophageal mucosal changes suggestive of ?eosinophilic esophagitis. ?- 3 cm hiatal hernia. ?- Gastritis. Biopsied. ?- Gastroesophageal flap valve classified as Hill ?Grade IV (no fold, wide open lumen, hiatal hernia ?present). ?- Normal examined duodenum. ?- Biopsies were taken with a cold forceps for ?evaluation of eosinophilic esophagitis. Recommendation: ? - Await pathology results. ?- Return to referring physician as previously ?scheduled. ? Procedure Code(s): ? --- Professional --- ? 88554, Esophagogastroduode noscopy, flexible, transoral; with biopsy, ? single or multiple Diagnosis Code(s): ? --- Professional --- ? K22.89, Other specified disease of esophagus ? K44.9, Diaphragmatic hernia without obstruction or gangrene ? K29.70, Gastritis, unspecified, without bleeding ? K21.9, Gastro-esophageal reflux disease without esophagitis ? R07.9, Chest pain, unspecified CPT copyright 2021 [employer]. All rights reserved. The codes documented in this report are preliminary and upon battery assembler review may be revised to meet current compliance requirements. Tyshawn Sprague MD TYSHAWN SPRAGUE MD 09/12/2023 1:57:45 PM I was physically present for the entire viewing portion of the exam. TYSHAWN SPRAGUE MD Number of Addenda: 0 Note Initiated On: 09/12/2023 1:02 PM Total Procedure Duration: 0 hours 7 minutes 12 seconds Scope In: 1:29:41 PM Scope Out: 1:36:53 PM RADIOLOGY RESULTS 09/12/2023 1:02 PM MARKET DEVELOPMENT ANALYST See Claudio PA-C PROCEDURES RADIOLOGY RESULTS * Troponin T, High Sensitivity (now) (09/07/2023 8:49 PM MARKET DEVELOPMENT ANALYST) Only the most recent of2 resultswithin the time period is included. Troponin T, High Sensitivity <6 <=14 ng/L 09/07/2023 9:23 PM MARKET DEVELOPMENT ANALYST LABORATORY Comment: Either a High Sensitivity Troponin T baseline (0 hours) value = 100 ng/L, or an increase in High Sensitivity Troponin T = 7 ng/L at 2 hours compared to 0 hours (2-0 hours), suggests myocardial injury, and urgent clinical attention is required. ?? If the 2-0 hours increase is <7 ng/L, a High Sensitivity Troponin T result above gender-specific reference ranges warrants further evaluation. Recommendations for further evaluation include correlation with clinical decision-making tool (e.g., HEART), a 3rd High Sensitivity Troponin T test 2 hours after the 2nd (a 20% change from baseline would represent concern), admission for observation, close PCC/cardiology follow-up, or urgent outpatient provocative testing. Blood STRUCTURE OF RIGHT UPPER LIMB / Unknown Venipuncture / Unknown 09/07/2023 8:49 PM MARKET DEVELOPMENT ANALYST 09/07/2023 8:53 PM MARKET DEVELOPMENT ANALYST Brea Meyer MD LAB - BLOOD DONYA HERRERA LABORATORY [facility] Acute Care Lab [address] Lab (1st floor, no room number) [place] [address], [facility] [phone] * Extra Purple Top Tube (09/07/2023 6:59 PM MARKET DEVELOPMENT ANALYST) Hold Specimen JIC 09/07/2023 8:07 PM MARKET DEVELOPMENT ANALYST LABORATORY Blood STRUCTURE OF LEFT UPPER LIMB / Unknown Venipuncture / Unknown 09/07/2023 6:59 PM MARKET DEVELOPMENT ANALYST 09/07/2023 7:05 PM MARKET DEVELOPMENT ANALYST Brea Meyer MD LAB - BLOOD DONYA HERRERA [facility] Acute Care Lab [address] Lab (1st floor, no room number) [place] [address], [facility] [phone] * Extra Red Top Tube (09/07/2023 6:59 PM MARKET DEVELOPMENT ANALYST) Hold Specimen [facility] 09/07/2023 8:07 PM MARKET DEVELOPMENT ANALYST [facility] LAB[facility]AT[facility] Blood STRUCTURE OF LEFT UPPER LIMB / Unknown Venipuncture / Unknown 09/07/2023 6:59 PM MARKET DEVELOPMENT ANALYST 09/07/2023 7:05 PM MARKET DEVELOPMENT ANALYST Brea Meyer MD LAB - BLOOD DONYA HERRERA Performing Organization Address [facility]/ZIP Co de Phone Number [facility] Acute Care Lab [address] Lab (1st floor, no room number) [place] [address], [facility] [phone] * (ABNORMAL) CBC with platelets and differential (09/07/2023 6:59 PM MARKET DEVELOPMENT ANALYST) WBC Count 5.7 4.0 - 11.0 10e3/uL 09/07/2023 7:08 PM MARKET DEVELOPMENT ANALYST [facility] LAB[facility]AT[facility] RBC Count 5.11 3.80 - 5.20 10e6/uL 09/07/2023 7:08 PM MARKET DEVELOPMENT ANALYST [facility] Hemoglobin 13.4 11.7 - 15.7 g/dL 09/07/2023 7:08 PM MARKET DEVELOPMENT ANALYST [facility] Hematocrit 41.3 35.0 - 47.0 % 09/07/2023 7:08 PM MARKET DEVELOPMENT ANALYST [facility] MCV 81 78 - 100 fL 09/07/2023 7:08 PM MARKET DEVELOPMENT ANALYST [facility] MCH 26.2(L) 26.5 - 33.0 pg 09/07/2023 7:08 PM MARKET DEVELOPMENT ANALYST [facility] MCHC 32.4 31.5 - 36.5 g/dL 09/07/2023 7:08 PM MARKET DEVELOPMENT ANALYST [facility] RDW 12.6 10.0 - 15.0 % 09/07/2023 7:08 PM MARKET DEVELOPMENT ANALYST [facility] Platelet Count 233 150 - 450 10e3/uL 09/07/2023 7:08 PM MARKET DEVELOPMENT ANALYST [facility] % Neutrophils 43 % 09/07/2023 7:08 PM MARKET DEVELOPMENT ANALYST [facility] % Lymphocytes 45 % 09/07/2023 7:08 PM MARKET DEVELOPMENT ANALYST [facility] % Monocytes 6 % 09/07/2023 7:08 PM MARKET DEVELOPMENT ANALYST [facility] % Eosinophils 6 % 09/07/2023 7:08 PM MARKET DEVELOPMENT ANALYST [facility] % Basophils 0 % 09/07/2023 7:08 PM MARKET DEVELOPMENT ANALYST [facility] % Immature Granulocytes 0 % 09/07/2023 7:08 PM MARKET DEVELOPMENT ANALYST [facility] NRBCs per 100 WBC 0 <1 /100 024 7:08 PM MARKET DEVELOPMENT ANALYST [facility] LAB[facility]AT[facility] Absolute Neutrophils 2.5 1.6 - 8.3 10e3/uL 09/07/2023 7:08 PM MARKET DEVELOPMENT ANALYST [facility] Absolute Lymphocytes 2.5 0.8 - 5.3 10e3/uL 09/07/2023 7:08 PM MARKET DEVELOPMENT ANALYST [facility] Absolute Monocytes 0.3 0.0 - 1.3 10e3/uL 09/07/2023 7:08 PM MARKET DEVELOPMENT ANALYST [facility] Absolute Eosinophils 0.4 0.0 - 0.7 10e3/uL 09/07/2023 7:08 PM MARKET DEVELOPMENT ANALYST [facility] Absolute Basophils 0.0 0.0 - 0.2 10e3/uL 09/07/2023 7:08 PM MARKET DEVELOPMENT ANALYST [facility] Absolute Immature Granulocytes 0.0 <=0.4 10e3/uL 09/07/2023 7:08 PM MARKET DEVELOPMENT ANALYST LABORATORY Absolute NRBCs 0.0 10e3/uL 09/07/2023 7:08 PM MARKET DEVELOPMENT ANALYST [facility] Blood STRUCTURE OF LEFT UPPER LIMB / Unknown Venipuncture / Unknown 09/07/2023 6:59 PM MARKET DEVELOPMENT ANALYST 09/07/2023 7:05 PM MARKET DEVELOPMENT ANALYST Brea Meyer MD LAB - BLOOD DONYA HERRERA [facility] Organization Address City/State/ZIP Co de Phone Number [facility] LABORATORY [facility] Acute Care Lab [address] Lab (1st floor, no room number) [place] [address], [facility] [phone] * Basic metabolic panel (09/07/2023 6:59 PM MARKET DEVELOPMENT ANALYST) Sodium 138 135 - 145 mmol/L 09/07/2023 7:27 PM [facility] Comment:Reference intervals for this test were updated on 04/05/2023 to more accurately reflect our healthy population. There may be differences in the flagging of prior results with similar values performed with this method. Interpretation of those prior results can be made in the context of the updated reference intervals. Potassium 3.7 3.4 - 5.3 mmol/L 09/07/2023 7:27 PM MARKET DEVELOPMENT ANALYST LABORATORY Chloride 100 98 - 107 mmol/L 09/07/2023 7:27 PM [facility] Carbon Dioxide (CO2) 26 22 - 29 mmol/L 09/07/2023 7:27 PM [facility] Anion Gap 12 7 - 15 mmol/L 09/07/2023 7:27 PM [facility] Urea Nitrogen 12.9 6.0 - 20.0 mg/dL 09/07/2023 7:27 PM [facility] Creatinine 0.73 0.51 - 0.95 mg/dL 09/07/2023 7:27 PM [facility] GFR Estimate >90 >60 mL/min/1. 73m2 09/07/2023 7:27 PM [facility] Calcium 9.5 8.6 - 10.0 mg/dL 09/07/2023 7:27 PM [facility] Glucose 90 70 - 99 mg/dL 09/07/2023 7:27 PM [facility] Blood STRUCTURE OF LEFT UPPER LIMB / Unknown Venipuncture / Unknown 09/07/2023 6:59 PM MARKET DEVELOPMENT ANALYST 09/07/2023 7:05 PM MARKET DEVELOPMENT ANALYST Brea Meyer MD LAB - BLOOD DONYA HERRERA LABORATORY [facility] Acute Care Lab [address] [facility] Lab (1st floor, no room number) [place] [address], [facility] [phone] * EKG 12 lead (09/07/2023 6:14 PM MARKET DEVELOPMENT ANALYST) Systolic Blood Pressure mmHg RADIOLOGY RESULTS Diastolic Blood Pressure mmHg RADIOLOGY RESULTS Ventricular Rate 82 BPM RAD IOLOGY RESULTS Atrial Rate 82 BPM RADIOLOG Y RESULTS VT Interval 164 ms RADIOLOG Y RESULTS QRS Duration 86 ms RADIOLO GY RESULTS QT 382 ms RADIOLOGY RESULTS QTc 446 ms RADIOLOGY RESULTS P [place] 50 degrees RADIOLOGY RESULTS R AXIS 65 degrees RADIOLOGY RESULTS T [place] 47 degrees RADIOLOGY RESULTS Interpretation ECG Sinus rhythm Nonspecific ST abnormality Abnormal ECG When compared with ECG of 19-MAY-2023 09:49, No significant change was found Unconfirmed report - interpretation of this ECG is computer generated - see medical record for final interpretation Confirmed by - EMERGENCY ROOM, PHYSICIAN ([id number]), school photograph editor NIC LESTER ([id number]) on 09/08/2023 6:52:35 AM RADIOLOGY RESULTS 09/07/2023 6:14 PM MARKET DEVELOPMENT ANALYST 09/08/2023 6:52 AM MARKET DEVELOPMENT ANALYST Brea Meyer MD ECG ORDERABLES RADIOLOGY RESULTS * Chlamydia & Gonorrhea by PCR, [facility] - Clinic Collect (09/01/2023 2:31 PM MARKET DEVELOPMENT ANALYST) Chlamydia Trachomatis Negative Negative 09/02/2023 12:32 PM MARKET DEVELOPMENT ANALYST [facility] Comment: Negative for C. trachomatis rRNA by transcription coordinator mediated amplification. A negative result by transcription coordinator mediated amplification does not preclude the presence of infection because results are dependent on proper and adequate collection, absence of inhibitors and sufficient rRNA to be detected. Neisseria gonorrhoeae Negative Negative 09/02/2023 12:32 PM MARKET DEVELOPMENT ANALYST [facility] Comment:Negative for N. gono rrhoeae rRNA by transcription coordinator mediated amplification. A negative result by transcription coordinator mediated amplification does not preclude the presence of C. trachomatis infection because results are dependent on proper and adequate collection, absence of inhibitors and sufficient rRNA to be detected. Swab VAGINAL STRUCTURE / Unknown Non-blood Collection / Unknown 09/01/2023 2:31 PM MARKET DEVELOPMENT ANALYST 09/01/2023 2:32 PM MARKET DEVELOPMENT ANALYST Esha Grimm PA-C LAB - MICRO GENERAL ORDERABLES [facility] Inf. Diseases Diag. Lab [address] [facility] [place] [address], [facility] [phone] * Testosterone Free and Total (09/01/2023 2:25 PM MARKET DEVELOPMENT ANALYST) Free Testosterone Calculated 0.18 ng/dL 09/04/2023 6:56 AM MARKET DEVELOPMENT ANALYST [facility] Comment: Adult Female Reference Range: 18-30 Years: 0.08-0.74 ng/dL 31-40 Years: 0.13-0.92 ng/dL 41-51 Years: 0.11-0.58 ng/dL Postmenopausal: 0.06-0.38 ng/dL Testosterone Total 10 8 - 60 ng/dL 09/04/2023 6:56 AM MARKET DEVELOPMENT ANALYST [facility] Blood BLOOD SPECIMEN / Unknown Venipuncture / Unknown 09/01/2023 2:25 PM MARKET DEVELOPMENT ANALYST 09/01/2023 2:25 PM MARKET DEVELOPMENT ANALYST Narrative [facility] - 09/04/2023 6:56 AM MARKET DEVELOPMENT ANALYST This test was developed and its performance characteristics determined by the [facility], ??Special Chemistry Laboratory. It has not been cleared or approved by the FDA. The laboratory is regulated under CLIA as qualified to perform high-complexity testing. This test is used for clinical purposes. It should not be regarded as investigational or for research. Esha Grimm PA-C LAB - BLOOD ORDERABL ES [facility]BG[facility] Drug/BGEN [address] [facility], [address] [place] [address], [facility] [phone] * Sex Hormone Binding Globulin (09/01/2023 2:25 PM MARKET DEVELOPMENT ANALYST) Sex Hormone Binding Globulin 32 30 - 135 nmol/L 09/01/2023 5:45 PM MARKET DEVELOPMENT ANALYST [facility] Blood BLOOD SPECIMEN / Unknown Venipuncture / Unknown 09/01/2023 2:25 PM MARKET DEVELOPMENT ANALYST 09/01/2023 2:25 PM MARKET DEVELOPMENT ANALYST Esha Grimm PA-C LAB - BLOOD ORDERABL ES [facility] [address] [facility] [address] [facility], [address] [place] [address], [facility] [phone] * HIV Antigen Antibody Combo (09/01/2023 2:25 PM MARKET DEVELOPMENT ANALYST) HIV Antigen Antibody Combo Nonreactive Nonreactive 09/01/2023 5:50 PM MARKET DEVELOPMENT ANALYST [facility] Comment:Negative HIV-1/-2 an tigen and antibody screening test results usually indicate the absence of HIV-1 and HIV-2 infection. However, such negative results do not rule-out acute HIV infection. If acute HIV-1 or HIV-2 infection is suspected, detection of HIV-1 or HIV-2 RNA is recommended. Blood BLOOD SPECIMEN / Unknown Venipuncture / Unknown 09/01/2023 2:25 PM MARKET DEVELOPMENT ANALYST 09/01/2023 2:25 PM MARKET DEVELOPMENT ANALYST Esha Grimm PA-C LAB - BLOOD ORDERABL ES Performing Organization Address City/[facility]/ZIP Co de Phone Number [facility] 500 [facility], [address] [address], [facility] [phone] * Treponema Abs w Reflex to RPR and Titer (09/01/2023 2:25 PM MARKET DEVELOPMENT ANALYST) Treponema Antibody Total Nonreactive Nonreactive 09/01/2023 6:05 PM MARKET DEVELOPMENT ANALYST [facility] CORE/PROT/EN DO Blood BLOOD SPECIMEN / Unknown Venipuncture / Unknown 09/01/2023 2:25 PM MARKET DEVELOPMENT ANALYST 09/01/2023 2:25 PM MARKET DEVELOPMENT ANALYST Esha Grimm PA-C LAB - BLOOD ORDERABL ES [facility] CORE/PROT/ENDO [facility] Special[facility] Core/Prot/Endo 500 [facility] [address] [facility], [address] [place] [address] * Prolactin (09/01/2023 2:25 PM MARKET DEVELOPMENT ANALYST) Prolactin 6 5 - 23 ng/mL 09/01/2023 7:34 PM MARKET DEVELOPMENT ANALYST [facility] Blood BLOOD SPECIMEN / Unknown Venipuncture / Unknown 09/01/2023 2:25 PM MARKET DEVELOPMENT ANALYST 09/01/2023 2:25 PM MARKET DEVELOPMENT ANALYST Esha Grimm PA-C LAB - BLOOD ORDERABL ES LABORATORY [facility] [address] [facility], [address] [place] [address], [facility] [phone] * Progesterone (09/01/2023 2:25 PM MARKET DEVELOPMENT ANALYST) Progesterone 0.3 ng/mL 09/01/2023 7:34 PM MARKET DEVELOPMENT ANALYST [facility] Comment: Healthy Postmenopausal Women Postmenopause: <0.1-0.126 Healthy Women 1st Trimester: 11.0-44.3 2nd Trimester: 25.4-83.4 3rd Trimester: 58.7-214 Healthy Women Cycle Phase Follicular: <0.1-0.2 Ovulation: 0.1-4.1 Luteal: 4.1-14.5 Healthy Women Cycle Sub Phase Early Follicular: <0.1-0.3 Intermediate Follicular: <0.1-0.2 Late Follicular: <0.1-0.2 Ovulation: <0.1-2.4 Early Luteal: 2.4-15.1 Intermediate Luteal: 4.8-20.9 Late Luteal: 0.5-13.5 Blood BLOOD SPECIMEN / Unknown Venipuncture / Unknown 09/01/2023 2:25 PM MARKET DEVELOPMENT ANALYST 09/01/2023 2:25 PM MARKET DEVELOPMENT ANALYST Esha Grimm PA-C LAB - BLOOD ORDERABL ES LABORATORY [facility] [address] [facility], [address] [place] [address], [facility] [phone] * Luteinizing Hormone (09/01/2023 2:25 PM MARKET DEVELOPMENT ANALYST) Luteinizing Hormone 4.4 mIU/mL 09/01/2023 7:34 PM MARKET DEVELOPMENT ANALYST [facility] Comment: FEMALE: Age 0 - 6 mo: ??<0.1-8.2 mIU/mL 6 mo - 11 years: <0.1-1.3 mIU/mL 11 - 14 years: <0.1-10 mIU/mL 14 - 19 years: 0.4-25 mIU/mL 19 years and older: Follicular Phase: 2.4-12.6 mIU/mL Ovulation Phase: 14.0-95.6 mIU/mL Luteal Phase: 1.0-11.4 ??mIU/mL Postmenopausal: 7.7-58.5 mIU/mL Blood BLOOD SPECIMEN / Unknown Venipuncture / Unknown 09/01/2023 2:25 PM MARKET DEVELOPMENT ANALYST 09/01/2023 2:25 PM MARKET DEVELOPMENT ANALYST Esha Grimm PA-C LAB - BLOOD ORDERABL ES Performing Organization Address [facility] Co de Phone Number U LABORATORY [facility] [address] [facility], [address] [phone], [facility] [phone] * hCG Qualitative (09/01/2023 2:25 PM MARKET DEVELOPMENT ANALYST) Pathologist [facility] hCG Serum Qualitative Negative Negative REINA 09/01/2023 5:34 PM MARKET DEVELOPMENT ANALYST [facility] Comment:This test is for scr eening purposes. Results should be interpreted along with the clinical picture. Confirmation testing is available if warranted by ordering [id number], HCG Quantitative . Blood BLOOD SPECIMEN / Unknown Venipuncture / Unknown 09/01/2023 2:25 PM MARKET DEVELOPMENT ANALYST 09/01/2023 2:25 PM MARKET DEVELOPMENT ANALYST Esha Grimm PA-C LAB - BLOOD ORDERABL ES U [facility]ORY [facility] [address] [facility], [address] [place] [address], [facility] [phone] * Follicle stimulating hormone (09/01/2023 2:25 PM MARKET DEVELOPMENT ANALYST) FSH 4.5 mIU/mL 09/01/2023 7:34 PM MARKET DEVELOPMENT ANALYST [facility] Comment: 19 years and older: Follicular phase: 3.5-12.5 mIU/mL Ovulation phase: 4.7-21.5 mIU/mL Luteal phase: 1.7-7.7 mIU/mL Postmenopause: 25.8-134.8 mIU/mL Blood BLOOD SPECIMEN / Unknown Venipuncture / Unknown 09/01/2023 2:25 PM MARKET DEVELOPMENT ANALYST 09/01/2023 2:25 PM MARKET DEVELOPMENT ANALYST Esha Grimm PA-C LAB - BLOOD ORDERABL ES [facility] [address] [facility], [address] [phone] [phone] * Estradiol (09/01/2023 2:25 PM MARKET DEVELOPMENT ANALYST) Estradiol 14 pg/mL 09/01/2023 7:34 PM MARKET DEVELOPMENT ANALYST [facility] Comment: Healthy Men: 11.3-43.2 pg/mL Healthy Postmenopausal Women: Postmenopause: <5-138 pg/mL Healthy Women: 1st trimester: 154-3243 pg/mL 2nd trimester: 1561-21779 pg/mL 3rd trimester: 8525->79195 pg/mL Healthy Women Cycle Phase: Follicular: 30.9-90.4 pg/mL Ovulation: 60.4-533 pg/mL Luteal: 60.4-232 pg/mL Healthy Women Cycle Sub-Phase: Early Follicular: 20.5-62.8 pg/mL Intermediate Follicular: 26-79.8 pg/mL Late Follicular: 49.5-233 pg/mL Ovulation: 60.4-602 pg/mL Early Luteal: 51.1-179 pg/mL Intermediate Luteal: 66.5-305 pg/mL Late Luteal: 30.2-222 pg/mL Blood BLOOD SPECIMEN / Unknown Venipuncture / Unknown 09/01/2023 2:25 PM MARKET DEVELOPMENT ANALYST 09/01/2023 2:25 PM MARKET DEVELOPMENT ANALYST Esha Grimm PA-C LAB - BLOOD ORDERABL ES [facility] 500 [facility] [address] [facility], [address] [address], [facility] [phone] * XR Hand Right G/E 3 Views (08/01/2023 9:04 AM MARKET DEVELOPMENT ANALYST) Anatomical Region Laterality Modality Hand, Wrist Right Computed Radiogr aphy Impressions 08/01/2023 10:59 AM MARKET DEVELOPMENT ANALYST IMPRESSION: The right hand is negative for fracture or dislocation. No erosive changes. JASON ALVARADO MD SYSTEM ID: ??[id number] Narrative 08/01/2023 10:59 AM MARKET DEVELOPMENT ANALYST XR HAND RIGHT G/E 3 VIEWS 08/01/2023 9:04 AM HISTORY: Finger pain, right COMPARISON: None. Procedure Note Jason Alvarado MD - 08/01/2023 XR HAND RIGHT G/E 3 VIEWS 08/01/2023 9:04 AM HISTORY: Finger pain, right COMPARISON: None. IMPRESSION: The right hand is negative for fracture or dislocation. No erosive changes. JASON ALVARADO MD SYSTEM ID: [id number] Esha Grimm PA-C IMG DIAGNOSTIC IMAGI NG ORDERABLES * US Pelvic Complete with Transvaginal (07/21/2023 9:57 AM MARKET DEVELOPMENT ANALYST) Anatomical Region Laterality Modality Abdomen/Pelvis Ultrasound Narrative 07/21/2023 12:20 PM MARKET DEVELOPMENT ANALYST [facility] ULTRASOUND - PELVIC PROMOTION SPECIALIST- Transabdominal and Transvaginal Referring MD: Esha Grimm CLINICAL INFORMATION Indications for ultrasound: Pain, check IUD, r/o PCOS LMP: na ?Hormones: IUD mirena Measurements: Uterus: ??7.7 x 5.1 x 3.9 ??cm ?? Position is anteverted. ??Contour is smooth/regular. Endo cav: 1.4 mm ? Smooth/regular/wnl Right ovary: 3.0 x 2.9 x 1.8 cm ??Wnl Left ovary: ?? 1.8 x 2.1 x 2.8 cm Wnl Cul de sac: no free fluid Technique: Transvaginal Imaging performed Transabdominal Imaging performed Complete pelvic ultrasound using realtime transabdominal and transvaginal scanning Normal bladder Normal uterus, bilateral adnexa. IUD in place Normal pelvic ultrasound study. Note: federal law requires the release of results to patients even prior to the ordering provider viewing the result. Your provider will notify you, generally within 24 hours, of any critical results. If follow up is necessary, you will be notified at that time. Normal results, and abnormal but non-urgent results, will generally be addressed within 48-[address] Gloria Espinal, DO ?? Obstetrics and Gynecology [facility] Esha Grimm PA-C Kaye ORDERABLES from Last 3 Months Advance Directives For more information, please contact: [phone] Latest Code Status on File Code Status Date Activated Date Inactivated Comments Full Code 01/14/2021 7:36 AM 01/15/2021 6:05 PM All bas ic and advanced life-sustaining interventions are performed as appropriate Question Answer Comments Code status determined by: Discussion with patient/ legal decision maker Care Teams Assembler Dc Field Ring Relationship Specialty Start Date End Date Esha Grimm PA-C [address] [place] [phone] PCP - General Family Medicine 05/04/23 Diana Desir, [facility] [place] [address] Pharmacist Pharmacist 04/17/21 Rain Galaviz PA-C [address] [place] [address] [place] [address] Physician Embossing Machine Operator Dermatology 04/28/21 Tavia Wyatt MD [address] [place] [address] [address] [facility] [place] [address] Dermatology 07/14/21 Erica Farrell APRN QUILL COLLECTOR [address] [place] [address] Nurse Practitioner Cardiovascular Disease 09/09/21 Rich Barrett MD [address] [facility] [address] [place], [place] [phone] Physician Ophthalmology 01/21/22 Neil Kent MD 500 [place] [address] Dermatology 02/24/22 Diana Desir, [facility] [address] [place], [place] [address] Assigned MTM Pharmacist 04/07/22 Livan Sharif MD [address] [place], [place] [address] Cardiovascular Disease 05/14/22 Catherine Cm MD [address] [facility]00 [place] [address] Cardiovascular Disease 07/21/22 Valery Veronica, PA-C [address] [place], [place] [address] Physician Embossing Machine Operator Dermatology 07/21/22 Brea Quinn APRN QUILL COLLECTOR 500 [place], [place] [phone] Nurse Practitioner Dermatology 09/21/22 Brea Quinn APRN QUILL COLLECTOR [address] [place] [address] Assigned Surgical Provider 10/09/22 [place] [address] [address] [facility] [address] [place] [address] Assigned Musculoskeletal Provider 10/09/22 Alfonso Renteria MD [address] [facility] 200 [place], [place] [phone] Assigned Neuroscience Provider 04/02/23 Radha Lomeli APRN QUILL COLLECTOR [address] [place] [id number] [place], [place] [address] Assigned Heart and Vascular Provider 05/28/23 Jelena David OD [address] [facility] [address] [place] [phone] Ophthalmology 06/15/23 Pao Joseph, VJ Personal Advocate & Liaison (PAL) Nurse 08/01/23 Esha Grimm PA-C [address] [place] [phone] Assigned PCP 07/16/23 Valery Veronica PA-C [address] [place] [address] 2729[address] Physician Embossing Machine Operator Dermatology 09/19/23 Tyshawn Sprague MD 9 [place], [place] [phone] Gastroenterology 09/20/23 Rocky Zepeda DO [address] [place] [address] 720215 Physician Gastroenterology 09/20/23 Philip Dumont MD [address] [place] [address] 6[address]135 Physician Ophthalmology 09/22/23
--- OUTSIDE RECORDS SUMMARY | 2023-10-15 21:46 | XMS_ITS | Clinical Summary ---
Author Name Unknown Organization [facility] Address [place], [place] [address] Care Team Providers Care Director Of Physiotherapy Services Name Role Phone Clinic, No Pcp Or Primary Care Provider Unavaila ble Allergies No known active allergies Medications Medication Sig Dispensed Refills Start Date End Date Status biotin-silicon [id number] 3,000 mcg -100 mg-50 mg TbER Take 1 capsule by mouth once daily. Active etonogestrel subdermal implant (NEXPLANON) 68 mg implant Inject 68 mg subcutaneous. 08/16/2016 Active ferrous sulfate, 65 mg elemental, tablet Take 325 mg by mouth once daily. Active fluocinonide 0.05% topical (LIDEX) 0.05 % cream Apply topically to affected area(s) 2 times daily. 05/17/2017 Active ibuprofen (ADVIL; MOTRIN) 200 mg tablet Take 400 mg by mouth every 6 hours. 10/24/2014 Active LORazepam (ATIVAN) 0.5 mg tab Take 0.5 mg by mouth every 8 hours. 04/12/2016 Active naproxen (NAPROSYN) 500 mg tablet Take 500 mg by mouth one time if needed. 04/12/2016 Active sertraline (ZOLOFT) 100 mg tablet Take 100 mg by mouth once daily. 2 08/28/2018 Active triamcinolone (ARISTOCORT; KENALOG) 0.1 % cream Apply topically to affected area(s). 09/12/2017 Active Active Problems No known active problems Social History Tobacco Use Types Packs/Day Years Used Date Smoking Tobacco: Every Day Cigarettes Smokeless Tobacco: Never Comments:e-cig Alcohol Use Standard Drinks/Week Comments No 0 (1 standard drink = 0.6 oz pur e alcohol) Sex and Gender Information Value Date Recorded Sex Assigned at Not on file Gender Identity Not on file Sexual Orientation Not on file Obstetrics History Last Filed Vital Signs Vital Sign Reading Time Taken Comments Blood Pressure 124/78 08/31/2018 11:46 AM INNERSOLE MAKER Pulse 78 08/31/2018 11:46 AM INNERSOLE MAKER Temperature 37.1 ??C (98.8 ??F) 11/01/2017 5:26 PM CD T Respiratory Rate 16 11/01/2017 5:26 PM CDT Oxygen Saturation 96% 11/01/2017 5:26 PM CDT Inhaled Oxygen Concentration - - Weight 89.3 kg (196 lb 14.4 oz) 019 11:46 AM INNERSOLE MAKER Height 166.5 cm (5' 5.55) 08/31/2018 1 1:46 AM INNERSOLE MAKER Body Mass Index 32.22 08/31/2018 11:46 AM INNERSOLE MAKER Plan of Treatment Health Maintenance Due Date Last Done Comments Tdap 2011 Depression screening for age 12+ 2012 HIV for age 15-65 2015 HPV series for age 9-26 (1 - 3-dose series) 2015 Chlamydia for age 16-24 2016 Hepatitis C screening for ag e 18-79 2018 BMI (ht and wt on same day) for age 18+ 08/31/2019 08/31/2018 Tetanus booster 2020 Pap test for age 21-65 2021 COVID-19 vaccine series ( - 2022- season) 2023 Influenza for age 9-49 03/11/2023 Pneumococcal series for age 6-64 Aged Out No longer eligible based on patient's age to complete this topic Care Teams Director Of Physiotherapy Services Relationship Specialty Start Date End Date Clinic, No Pcp Or . PCP - General 08/12/17
--- OUTSIDE RECORDS SUMMARY | 2023-10-15 21:46 | XMS_ITS | Clinical Summary ---
Author Name Unknown Organization [facility] Address [address] [place] [address] Phone Care Team Providers Care Duplex Trimmer Name Role Phone Unavailable Primary Care Provider Unavailabl e Allergies No known active allergies Medications Medication Sig Dispensed Refills Start Date End Date Status sertraline (ZOLOFT) 100 MG tablet Take 100 mg by mouth one time a day. 0 Active naproxen (NAPROSYN) 500 MG tablet Take 500 mg by mouth two times a day as needed for Pain. Take with food. 0 Active Social History Tobacco Use Types Packs/Day Years Used Date Smoking Tobacco: Never Alcohol Use Standard Drinks/Week Comments No 0 [...] 36.4 ??C (97.6 ??F) 03/15/2016 12:30 AM C DT Respiratory Rate 14 03/15/2016 1:30 AM CDT Oxygen Saturation 98% 03/15/2016 1:30 AM CDT Inhaled Oxygen Concentration - - Weight - - Height - - Body Mass Index - - Plan of Treatment Not on file
--- OUTSIDE RECORDS SUMMARY | 2023-10-15 21:47 | XMS_ITS | Encounter Summary ---
Author Name Unknown Organization [facility] Address [address] [place] [address] Care Team Providers Care Commercial Decorator Name Role Phone ThangKendrickDiana T [facility] Unavailable Rain Galaviz-C Unavailable Tavia Wyatt MD Unavailable Unavailable Erica Farrell APRN HOOP DRIVING 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 HELPER Unavailable Rich Barrett MD Unavailable Neil Kent MD Unavailable Diana Desir [facility] Unavailable [phone] Livan Sharif MD Unavailable Catherine Cm MD Unavailable + Valery Veronica PA-C Unavailable [phone] Brea Quinn AUTOMOTIVE TIRE TESTING SUPERVISOR HOOP DRIVING 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 HELPER Unavailable Brea Quinn AUTOMOTIVE TIRE TESTING SUPERVISOR HOOP DRIVING 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 HELPER Unavailable Jose Francisco Johnson MD Unavailable Alfonso Renteria MD Unavailable + [phone] Esha Grimm PA-C Primary Care Provider [phone] Radha Lomeli AUTOMOTIVE TIRE TESTING SUPERVISOR HOOP DRIVING 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 HELPER Unavailable [phone] FrankieJelena OD Unavailable [phone] Pao Joseph RN Unavailable Unavailable Esha Grimm PA-C Unavailable [phone] Valery Veronica PA-C Unavailable [phone] Rey Tay MD Unavailable ZepedaRocky Unavailable Philip Dumont MD Unavailable [phone] Encounter Details Date Type Department Care Team (Latest Contact Info) Description 10/06/2023 Travel Social History Tobacco Use Types Packs/Day Years Used Date Smoking Tobacco: Former Cigarettes 1 Q uit: 12/07/2019 Other Passive Smoke Exposure: Past Smokeless Tobacco: Never Alcohol Use Standard Drinks/Week [...] week 03/10/2023 How often [facility] you attend [facility] services? 1 to 4 times per year 03/10/2023 Do you belong to any clubs o r organizations such as orthodoxy groups, unions, fraternal or athletic groups, [...] Answer Date Recorded PHQ-2 Score 0 06/20/2023 [facility] - Occupational Stress [...] exercise at this level? 30 min 03/10/2023 [place] Depression Scale Answer Date Recorded [place] Depression Score 5 01/14/2021 Last EPDS Self [...] Orientation Straight 02/28/2020 12 :51 AM CDT documented as of this encounter Plan of Treatment Upcoming Encounters Date Type Department Care Team (Late st Contact Info) Description 10/25/2023 11:30 AM CDT Virtual Visit [facility] [address] [place] [phone] Nelly [place], RD [address] [place] [address] 11/03/2023 8:00 AM CDT Office Visit [address] [phone] Valery Veronica PA-C [address] [place] [address] 11/29/2023 8:00 AM CDT Office Visit [facility] [address] [place] [phone] Esha Grimm PA-C [address] [place] [phone] 01/02/2024 8:00 AM CDT Office Visit [facility] Sleep [place] [address] [place] [phone] Lauren Claudio PA-C [address] [place], [place] [phone] Kelli Perez MD [address] [address] documented as of this encounter Visit Diagnoses Not on filedocumented in this encounter Additional Health Concerns Assessment Noted Time PHQ-9 Depression Total Score: 4 06/20/20 23 8:40 AM ALUMINUM SIDING APPLICATOR documented as of this encounter Care Teams Commercial Decorator Relationship Specialty Start Date End Date Esha Grimm PA-C [address] [place] [address] PCP - General Family Medicine 05/04/23 Diana Desir, [facility] [place] [address] Pharmacist Pharmacist 04/17/21 Rain Galaviz PA-C [address] [place] [address] [address] [address] Physician It Compliance Analyst Dermatology 04/28/21 Tavia Wyatt MD [address] [place] [address] [address] [place] [address] Dermatology 07/14/21 Erica Farrell APRN HOOP DRIVING 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 HELPER [address] [facility] [address] [place] [address] Nurse Practitioner Cardiovascular Disease 09/09/21 Rich Barrett MD [address] [address] Physician Ophthalmology 01/21/22 Neil Kent MD [address] [place] [address]2235 Dermatology 02/24/22 Diana Desir, [facility] [place] [address] Assigned MTM Pharmacist 04/07/22 Livan Sharif MD [address] [place], [place] [address] Cardiovascular Disease 05/14/22 Catherine Cm MD [address] [facility] [address] [place] [address] Cardiovascular Disease 07/21/22 Valery Veronica, PAUcheC [address] [place] [address] Physician It Compliance Analyst Dermatology 07/21/22 Brea Quinn APRN HOOP DRIVING 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 HELPER [address] [place] [address] 575085 Nurse Practitioner Dermatology 09/21/22 Brea Quinn APRN HOOP DRIVING 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 HELPER [facility] [place], [place] [address] Assigned Surgical Provider 10/09/22 [place] [address] 5384[address] Assigned Musculoskeletal Provider 10/09/22 Alfonso Renteria MD [address] [place], [place] [phone] Assigned Neuroscience Provider 04/02/23 Radha Lomeli APRN HOOP DRIVING 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 HELPER [address] [place] [address] Assigned Heart and Vascular Provider 05/28/23 Jelena David OD [address] [place] [address] Ophthalmology 06/15/23 Pao Joseph, RN Personal Advocate & Liaison (PAL) Nurse 08/01/23 Esha Grimm PA-C [address] [place] [address] Assigned PCP 07/16/23 Valery Veronica PA-C [address] [place] [address] Physician It Compliance Analyst Dermatology 09/19/23 Rey Tay MD [address] [place] [address] MD Gastroenterology 09/20/23 Rocky Zepeda DO [address] [place] [address]005 Physician Gastroenterology 09/20/23 Philip Dumont MD [address] [place] [address] 002105 Physician Ophthalmology 09/22/23 documented as of this encounter
--- OUTSIDE RECORDS SUMMARY | 2023-10-15 21:47 | XMS_ITS | Encounter Summary ---
Author Name Unknown Organization [facility] Address [address] [place] [address] Care Team Providers Care Automobile Service Station Manager Name Role Phone ThangKendrickDiana T [facility] Unavailable Rain Galaviz-C Unavailable Tavia Wyatt MD Unavailable Unavailable Erica Farrell APRN ACCOUNTING LECTURER Unavailable Rich Barrett MD Unavailable Neil Kent MD Unavailable Diana Desir [facility] Unavailable [phone] Livan Sharif MD Unavailable Catherine Cm MD Unavailable + Valery Veronica PA-C Unavailable [phone] Brea Quinn TACTICAL RESPONSE GROUP OFFICER ACCOUNTING LECTURER Unavailable [phone] Brea Quinn TACTICAL RESPONSE GROUP OFFICER ACCOUNTING LECTURER Unavailable Jose Francisco Johnson MD Unavailable Alfonso Renteria MD Unavailable + [phone] Esha Grimm PA-C Primary Care Provider [phone] Radha Lomeli TACTICAL RESPONSE GROUP OFFICER ACCOUNTING LECTURER Unavailable [phone] FrankieJelena OD Unavailable [phone] Pao Joseph RN Unavailable Unavailable Esha Grimm PA-C Unavailable [phone] Valery Veronica PA-C Unavailable Rey Tay MD Unavailable DuaneRocky Unavailable Philip Dumont MD Unavailable [phone] Reason for Visit * Reason Onset Date Comments Appointment 10/06/2023 Reschedule of appt Encounter Details Date Type Department Care Team (Late st Contact Info) Description 10/06/2023 Telephone [facility] [address] [place] [address] Meredith Carrera PA-C [address] [place] [address] Appointment (Reschedule of 10/06/23 appt) Social History Tobacco Use Types Packs/Day Years [...] or neighbors? Three times a week 03/10/20 How often do you get togethe r with friends or relatives? Twice a week 03/10/2023 How often do you attend chur ch or cheondoism services? 1 to 4 times per year 03/10/2023 Do you belong to any clubs o r organizations such as rastafarian groups, unions, fraternal or athletic groups, [...] Answer Date Recorded PHQ-2 Score 0 06/20/2023 [facility] - Occupational Stress Questionnaire Answer Date Recorded [...] exercise at this level? 30 min 03/10/2023 Cabery Depression Scale Answer Date Recorded Cabery Depression Score 5 01/14/2021 Last EPDS Self [...] AM CDT documented as of this encounter Miscellaneous Notes * Telephone Encounter - Richar Schafer - 10/07/2023 1:16 PM CDT Tutor Coordinator call to offer Pt an appointment with Meredith Carrera on 10/13/2023 at 10:45 AM. Pt accepted the appointment. * Telephone Encounter - Yara Lott - 10/06/2023 7:06 AM CDT [facility] Call Center Phone Message May a detailed message be left on voicemail: yes Reason for Call: Other: Patient had an appt with Meredith Carrera today, 10/06/23, at 7:30am; however, patient called at 7:05am stating she had overselpt and would not make it in. She stated she was squeezed in for this appt and felt really bad but she lives in [place] and would not make it in time.Therefore, she would like to be squeezed in at another time with Dr. Zepeda or Meredith Carrera - that is who she was told she has to schedule with. Please follow up with patient. Action Taken: Message routed to: [facility] [place] Screening: Not Applicable documented in this encounter Plan of Treatment Upcoming Encounters Date Type Department Care Team (Late st Contact Info) Description 10/25/2023 11:30 AM CDT Virtual Visit [facility] [address] [phone] [place] [place], [address] [place] [address] 11/03/2023 8:00 AM CDT Office Visit [facility] [address] [place] [phone] Valery Veronica PA-C [address] [place] [address] 11/29/2023 8:00 AM CDT Office Visit [facility] [address] [place] [address] Esha Grimm PA-C [address] [place] [address] 01/02/2024 8:00 AM CDT Office Visit [facility] [address] [place] [phone] Lauren Claudio PA-C [address] [place] [address] Kelli Perez MD [address] [facility] [address] [place], [place] [phone] documented as of this encounter Visit Diagnoses Not on filedocumented in this encounter Additional Health Concerns Assessment Noted Time PHQ-9 Depression Total Score: 4 06/20/20 23 8:40 AM INSPECTOR FINAL ASSEMBLY MECHANICAL documented as of this encounter Care Teams Automobile Service Station Manager Relationship Specialty Start Date End Date Esha Grimm PA-C [address] [place] [address] PCP - General Family Medicine 05/04/23 Diana Desir, [facility] [address] [place] [address] Pharmacist Pharmacist 04/17/21 Rain Galaviz PA-C [address] [place] [address] [address] [place] [address] Physician Immigration Case Worker Dermatology 04/28/21 Tavia Wyatt MD [address] [place] [address] [address] [place] [address] Dermatology 07/14/21 Erica Farrell APRN ACCOUNTING LECTURER [address] [place] [id number] Nurse Practitioner Cardiovascular Disease 09/09/21 Rich Barrett MD [address] 488[address] Physician Ophthalmology 01/21/22 Neil Kent MD [address] [place] [address] [phone] Dermatology 02/24/22 Diana Desir, [facility] [address] [place] [address] Assigned MTM Pharmacist 04/07/22 Livan Sharif MD [address] [facility] [address] [place] [address] Cardiovascular Disease 05/14/22 Catherine Cm MD [address] [facility] [address] [place] [address] Cardiovascular Disease 07/21/22 Valery Veronica, PA-C [address] [place] [address] Physician Immigration Case Worker Dermatology 07/21/22 Brea Quinn APRN ACCOUNTING LECTURER [address] [place] [address] 527225 Nurse Practitioner Dermatology 09/21/22 Brea Quinn APRN ACCOUNTING LECTURER [address] [place] [address] Assigned Surgical Provider 10/09/22 [place] [address] [place] [address] Assigned Musculoskeletal Provider 10/09/22 Alfonso Renteria MD [address] [facility] [address] [place] [address] Assigned Neuroscience Provider 04/02/23 Radha Lomeli APRN ACCOUNTING LECTURER [address] [facility] [address] [place] [address] Assigned Heart and Vascular Provider 05/28/23 Jelena David OD [address] [facility] [place] [phone] MD Ophthalmology 06/15/23 Pao Joseph, RN Personal Advocate & Liaison (PAL) Nurse 08/01/23 Esha Grimm PA-C [address] [place] [phone] Assigned PCP 07/16/23 Valery Veronica PA-C [address] [place] [address] [phone] Physician Immigration Case Worker Dermatology 09/19/23 Rey Tay MD [address] [place] [address] [phone] Gastroenterology 09/20/23 Rocky Zepeda DO [address] [place] [address] [phone] Physician Gastroenterology 09/20/23 Philip Dumont MD [address] [place] [address] [phone] Physician Ophthalmology 09/22/23 documented as of this encounter
--- OUTSIDE RECORDS SUMMARY | 2023-10-15 21:47 | XMS_ITS | Encounter Summary ---
Author Name Unknown Organization [place] Address [address] [place] [id number] Care Team Providers Care Surveyor Helper Name Role Phone ThangKendrickDiana T [facility] Unavailable Rain Galaviz-C Unavailable Tavia Wyatt MD Unavailable Unavailable Erica Farrell APRN CERTIFIED RECREATIONAL THERAPIST Unavailable Rich Barrett MD Unavailable Neil Kent MD Unavailable Diaan Desir [facility] Unavailable [phone] Livan Sharif MD Unavailable Catherine Cm MD Unavailable + Valery Veronica PA-C Unavailable [phone] Brea Quinn HOT STAMP OPERATOR CERTIFIED RECREATIONAL THERAPIST Unavailable Brea Quinn HOT STAMP OPERATOR CERTIFIED RECREATIONAL THERAPIST Unavailable Jose Francisco Johnson MD Unavailable Alfonso Renteria MD Unavailable + [phone] Esha Grimm PA-C Primary Care Provider [phone] Radha Lomeli HOT STAMP OPERATOR CERTIFIED RECREATIONAL THERAPIST Unavailable Jelena David OD Unavailable Pao Joseph RN Unavailable Unavailable Esha Grimm PA-C Unavailable [phone] JeremíasValery PA-C Unavailable Rey Tay MD Unavailable Duane Rocky Unavailable Philip Dumont MD Unavailable Reason for Referral * Nutrition (Routine: Next available opening) - Pending Review Specialty Diagnoses / Procedures Referred By Contparviz mayers Referred To Contact Diagnoses Eosinophilic esophagitis Esophageal dysphagia [place] [address] [place] [address] Referral ID Status Reason Start Date Expiration Date V isits Requested Visits Authorized [id number] Pending Review 10/13/2023 10/12/2024 1 1 Scheduling Instructions EOE elimination diet Question Answer Nutritional instruct Other - use Comments Scheduling Instructions: [facility] will call you to coordinate your care as prescribed by your provider. If you don't hear from a membership sales representative within 2 business days, please call . Additional Information: EOE elimination diet Comments Please be aware that coverage of these services is subject to the terms and limitations of your health insurance plan. Call member services at your health plan with any benefit or coverage questions. [employer] will call you to coordinate your care as prescribed by your provider. If you don't hear from a membership sales representative within 2 business days, please call . * Consultation (Routine: Next available opening) - Pending Review Specialty Diagnoses / Procedures Referred By Qian mayers Referred To Contact Gastroenterology Diagnoses Eosinophilic esophagitis Esophageal dysphagia Meredith Carrera PA-C [address] [place] [address] [place] [address] Referral ID Status Reason Start Date Expiration Date V isits Requested Visits Authorized [id number] Pending Review 10/13/2023 10/12/2024 1 1 Scheduling Instructions EGD MAC Dr. Zepeda preferred Question Answer Service: Upper Endoscopy Upper Endoscopy Type: EGD Sedation Concerns: No medical conditions affecting sedation Sedation Type: Deep/MAC Sedation Reason for Upper Endoscopy: EGD MAC EOE. Now on Omeprazole 40mg twice daily. Please obtain at least 4 proximal and 4 distal biopseise of the esophagus.. Preferred Location: [facility] Scheduling Instructions: [facility] will call you to coordinate your care as prescribed by the provider. If you don? t hear from a membership sales representative within 2 business days, please call . Comments Please be aware that coverage of these services is subject to the terms and limitations of your health insurance plan. Call member services at your health plan with any benefit or coverage questions. [facility] will call you to coordinate your care as prescribed by the provider. If you don? t hear from a membership sales representative within 2 business days, please call . Reason for Visit * Reason Comments New Patient Encounter Details Date Type Department Care Team (Latest Contact Info) Description 10/13/2023 10:45 AM CDT Office Visit [facility] [address] [place] [address] Meredith Carrera PA-C [address] [place] [id number] Eosinophilic esophagitis (Primary Dx); Esophageal dysphagia Social History Tobacco Use Types Packs/Day Years [...] 03/10/2023 How often do you attend chur or mandaeism services? 1 to 4 times per year [...] Answer Date Recorded PHQ-2 Score 0 06/20/2023 [facility] - Occupational Stress [...] exercise at this level? 30 min 03/10/2023 Roscoe Depression Scale Answer Date Recorded Roscoe Depression Score 5 01/14/2021 Last EPDS Self [...] AM CDT documented as of this encounter Last Filed Vital Signs Vital Sign Reading Time Taken Comments Blood Pressure 105/68 10/13/2023 10:31 AM CDT Pulse 70 10/13/2023 10:31 AM CDT Temperature - - Respiratory Rate - - Oxygen Saturation 100% 10/13/2023 10:31 AM CDT Inhaled Oxygen Concentration - - Weight 85 kg (187 lb 6.4 oz) 10/13/2023 10:31 AM CDT Height 167.6 cm (5' 6) 10/13/2023 10:31 AM CDT Body Mass Index 30.25 10/13/2023 10:31 AM CDT documented in this encounter Patient Instructions * Patient Instructions* Meredith Carrera PA-C - 10/13/2023 10:45 AM CDT It was a pleasure taking care of you today. I've included a brief summary of our discussion and care plan from today's visit below. Please review this information with your primary care provider. My recommendations are summarized as follows: - Consultation with sales commissions analyst to discuss elimination diet for EOE - Await consultation with dermatology 11/03/2023 - Dupixent - Please start taking daily fiber supplementation. Start with 1 - 2 teaspoons daily which can be slowly uptitrated to 2 - 3 tablespoons as needed Fiber Recommendations: -- Recommend starting supplementation with a powdered soluble fiber. When used on a daily basis, this can help regulate the consistency of your stools. Metamucil (psyllium) and Citrucel are preferredexamples. You can start with 1-2 teaspoons per day, with goal to gradually increase to 1 tablespoondaily. You can increase up to 1 tablespoon three times daily if needed. It is important to stay well-hydrated with use of fiber supplementation and to make sure that the fiber powder is well mixed with water as directed on the label. You may experience some bloating with initiation of fiber, which will improve over the first few weeks. A good trial to evaluate the effect is 3-6 months. Of note, ma ny of the fiber products contain artificial sweeteners, which can cause bloating, gas, and diarrheain those who may be sensitive to artificial sweeteners. If this is the case, recommend trying Metamucil Premium Blend (with Stevia), Metamucil 4-in-1 without Added Sweeteners, or Bellway (sweetened with Monk fruit extract). The pathophysiology of eosinophilic esophagitis was explained to the patient in great detail. The management of EoE was discussed including proton pump inhibitors (PPI), swallowed steroids (budesonide or fluticasone), food elimination diets (2-4-6 or 6-4-2), food allergy testing directed elimination diets. The newest medication on the market, dupilumab, is the only FDA approved medication and allother treatment modalities are used off label. Dilation only management was explained as well: however, this does not treat the underlying inflammatory process. The risks and benefits of all medications were explained. The risks and benefits of PPI use were discussed including but not limited to: kidney injury, dementia, fracture, C. Difficile, and community acquired pneumonia. Recent literature suggests a possible relationship between PPI use with a greater likelihood of reporting a positive COVID-19 test (Christinaario CV, Inessa WD, Yoli BMR. Am J Gastroenterol 2020;115:3560-5807).This was discussed with the patient in detail. The quality of research studies was described (retrospective vs prospective). Data from recent review article provided (Duane MCGOWAN, John PO. Proton Pump Inhibitors in 2020: Pros, Cons, and Everything in Between. [employer]gut. November 2020. Doi:10.1177/[id number]). The value of joint decision making was emphasized to ensure that the medication is utilized in the appropriate clinical setting. The risks and benefits of steroid use in the treatment of eosinophilic esophagitis were discussed at length. The most likely risk of oral or esophageal candidiasis were discussed. Less likely risks such as osteoporosis/osteopenia, bone fracture, diabetes or impaired glucose tolerance, adrenal insufficiency, and redistribution of fat were also discussed. We discussed dupilumab as a once weekly injection option with an efficacy of 60-80% depending on the eosinophil endpointutilized. The common side effects of injection site reaction, erythema and pain were discussed as well as the increased risk of upper respiratory infections. The patient was provided with all of the information so that the therapy chosen can be done as a shared decision making process. It was explained to the patient that management of EoE is a chronic and indefinite at this time as we know that cessation of therapy results in the return of eosinophils and the subsequent inflammatory process within the esophagus. I also described that for every change in management a repeat endoscopy is needed approximately 2 months later to assess for histologic remission. This is defined as <6 or <15 depending on the scenario. If the patient requires dilations, this can occasionally mean that an endoscopy is needed every 2-4 weeks until reaching the optimal diameter. We discussed the risks and benefits of pursuing upper endoscopy. The benefits outweigh the potential risks however the risks, including but not limited to: bleeding, infection, perforation, the need for surgical intervention, hospitalization, and in rare instances were discussed and all questions were answered. To schedule endoscopic procedures you may call: [phone] To schedule radiology (imaging) tests you may call: [phone] To schedule an ENT appointment you may call: [phone] Please call my nurse Jessa ([phone]), Mindy ([phone]) with any questions or concerns. Return to GI Clinic in 4 months to review your progress. Who do I call with any questions after my visit? Please be in touch if there are any further questions that arise following today's visit. There aremultiple ways to contact your gastroenterology care team. During business hours, you may reach a Gastroenterology nurse at [phone] and choose option 3. To schedule or reschedule an appointment, please call [phone]. You can always send a secure message through [employer]. [employer] messages are answered by your nurse or doctor typically within 24 hours. Please allow extra time on weekends and holidays. For urgent/emergent questions after business hours, you may reach the on-call GI Fellow by contacting the [facility] head gauge unit operator at . How will I get the results of any tests ordered? You will receive all of your results. If you have signed up for [employer], any tests ordered at your visit will be available to you after your physician reviews them. Typically this takes 1-2 weeks. Ifthere are urgent results that require a change in your care plan, your physician or nurse will callyou to discuss the next steps. What is [employer]? [employer] is a secure way for you to access all of your healthcare records from the [facility]. It is a web based computer program, so you can sign on to it from any location. It also allows you to send secure messages to your care team. I recommend signing up for [employer] access if you have not already done so and are comfortable with using a computer. How to I schedule a follow-up visit? If you did not schedule a follow-up visit today, please call [phone] to schedule a follow-up office visit. If you feel you received exceptional care and are interested in supporting the clinical and research goals of Meredith Carrera PA-C or the Division of Gastroenterology, Hepatology, and Nutrition please contact [email or web address] from the [facility] to discuss opportunities to donate. Sincerely, Meredith Carrera PA-C Division of Gastroenterology, Hepatology, and Nutrition [facility] documented in this encounter Progress Notes * Meredith Carrera PA-C - 10/13/2023 10:45 AM CDT Gastroenterology Visit for: Kim Johnson 2000 Reason for Visit: chief complaint Referred by: Tay / [address] [place] [address] / [facility] [id number] Patient Care Team: Esha Grimm PA-C as PCP - General (Family Medicine) Diana Desir RPH as Pharmacist (Pharmacist) Rain Galaviz PA-C as Physician Automotive Brake Technician (Dermatology) Tavia Wyatt MD as MD (Dermatology) Erica Farrell APRN CNP as Nurse Practitioner (Cardiovascular Disease) Rich Barrett MD as Physician (Ophthalmology) Neil Kent MD as MD (Dermatology) Diana Desir RP as Assigned MTM Pharmacist Livan Sharif MD as (Cardiovascular Disease) Catherine Cm MD as MD (Cardiovascular Disease) Valery Veronica PA-C as Physician Automotive Brake Technician (Dermatology) Brea Quinn APRN CNP as Nurse Practitioner (Dermatology) Brea Quinn APRN CNP as Assigned Surgical Provider Jose Francisco Johnson MD as Assigned Musculoskeletal Provider Alfonso Renteria MD as Assigned Neuroscience Provider Radha Lomeli APRN CERTIFIED RECREATIONAL THERAPIST as Assigned Heart and Vascular Provider Jelena David OD as MD (Ophthalmology) Esha Grimm PA-C as Assigned PCP Pao Joseph, VJ as Personal Advocate & Liaison (PAL) (Nurse) Valery Veronica PA-C as Physician Automotive Brake Technician (Dermatology) Rey Tay MD as MD (Gastroenterology) Rocky Zepeda DO as Physician (Gastroenterology) Philip Dumont MD as Physician (Ophthalmology) History of Present Illness: Kim Johnson is a 23 year old female with significant past medical history pertinent for anxiety,depression, seizure disorder, asthma, SVT, Paroxysmal SVT, CYP2C9 intermediate metabolizer, who is presenting as a new patient Dr. Tay with a chief complaint of reflux/dysphagia. HPI 10/2023 Reports onset of reflux symptoms at age 15/16 years old which have been exacerbated over the past 6months. Additionally Kim reports a symptoms of substernal chest pressure that can be present throughout the entirety of the day however aggravated with oral intake specifically solids. Denies dysphagia to semi solids, liquids and pills. Stopped PPI therapy for 2 weeks prior to the endoscopy. Swallowing symptoms were not impacted with the cessation of the the PPI therapy. Once every 2-3 months will have heartburn with radiation to the back. Otherwise reflux symptoms are well controlled with Omeprazole 40 mg once daily. Associated symptoms include pressure in her head and dizziness. No history of asthma or seasonal allergies. Carries diagnosis of psoriasis. No family this of EoE. Denies weight loss, emesis, odynophagia, early satiation, early satiety, diarrhea, constipation (< 3 stools per week), incontinence of feces, change in bowel patterns, melena, hematochezia and BRBR. No use of NSIADs. Occasional use of ETOH socially once per month. History of smoking tobacco 1 pack per day. No current tobacco use. No recreational drug use. Sister had Crohns disease. No additional family history or GI related malignancy (esophageal, gastric, pancreatic, liver or colon) or family history of IBD/celiac disease. Esophageal Questionnaire(s) BEDQ Questionnaire 10/06/2023 12:19 AM 10/12/2023 1:54 PM BEDQ Questionnaire: How Often Have You Had the Following? Trouble eating solid food (meat, bread, vegetables) 3 3 Trouble eating soft foods (yogurt, jello, pudding) 0 1 Trouble swallowing liquids 0 0 Pain while swallowing 2 1 Coughing or choking while swallowing foods or liquids 0 0 Total Score: 5 5 10/06/2023 12:19 AM 10/12/2023 1:54 PM BEDQ Questionnaire: Discomfort/Pain Ratings Eating solid food (meat, bread, vegetables) 2 2 Eating soft foods (yogurt, jello, pudding) 0 1 Drinking liquid 0 1 Total Score: 2 4 Eckardt Questionnaire 10/06/2023 12:21 AM 10/12/2023 1:56 PM Eckardt Questionnaire Dysphagia 1 1 Regurgitation 0 0 Retrosternal Pain 1 2 Weight Loss (kg) 0 0 Total Score: 2 3 Promis 10 Questionnaire 08/18/2021 10:58 AM 08/27/2021 7:44 AM 10/06/2023 12:22 AM 10/12/2023 1:57 PM PROMIS 10 FLOWSHEET DATA In general, would you say your health is: 4 3 3 3 In general, would you say your quality of life is: 4 3 3 4 In general, how would you rate your physical health? 3 2 2 2 In general, how would you rate your mental health, including your mood and your ability to think? 33 4 3 In general, how would you rate your satisfaction with your social activities and relationships? 4 44 4 In general, please rate how well you carry out your usual social activities and roles. (This includes activities at home, at work and in your community, and responsibilities as a parent, child, spouse, employee, friend, etc.) 5 5 4 4 To what extent are you able to carry out your everyday physical activities such as walking, climbing stairs, carrying groceries, or moving a chair? 4 4 5 5 In the past 7 days, how often have you been bothered by emotional problems such as feeling anxious,depressed, or irritable? 3 3 3 3 In the past 7 days, how would you rate your fatigue on average? 2 2 2 2 In the past 7 days, how would you rate your pain on average, where 0 means no pain, and 10 means worst imaginable pain? 5 5 4 3 Mental health question re-calculation - no clinical value 3 3 3 3 Physical health question re-calculation - no clinical value 4 4 4 4 Pain question re-calculation - no clinical value 3 3 3 4 Global Mental Health Score 14 13 14 14 Global Physical Health Score 14 13 14 15 PROMIS TOTAL - SUBSCORES 28 26 28 29 STUDIES & PROCEDURES: EGD: 09/12/2023 Findings: Mucosal changes including longitudinal furrows and congestion (edema) were found in the entire esophagus. Esophageal findings were graded using the Eosinophilic Esophagitis Endoscopic Reference Score (EoE-EREFS) as: Edema Grade 1 Present (decreased clarity or absence of vascular markings), Rings Grade 0 None (no ridges or rings seen), Exudates Grade 0 None (no white lesions seen), Furrows Grade 1 Mild (vertical lines without visible depth) and Stricture none (no stricture found). Biopsies were obtained from the proximal and distal esophagus with cold forceps for histology of suspected eosinophilic esophagitis. The exam of the esophagus was otherwise normal. A 3 cm hiatal hernia was present. Patchy moderate inflammation characterized by congestion (edema), erosions and erythema was found in the gastric antrum. Biopsies were taken with a cold forceps for histology. The gastroesophageal flap valve was visualized endoscopically and classified as Hill Grade IV (no fold, wide open lumen, hiatal hernia present). The exam of the stomach was otherwise normal. The examined duodenum was normal. Impression: - Esophageal mucosal changes suggestive of eosinophilic esophagitis. - 3 cm hiatal hernia. - Gastritis. Biopsied. - Gastroesophageal flap valve classified as Hill Grade IV (no fold, wide open lumen, hiatal hernia present). - Normal examined duodenum. - Biopsies were taken with a cold forceps for evaluation of eosinophilic esophagitis. Final Diagnosis A(1). Stomach, biopsy: - Oxyntic [...] intestinal metaplasia. -Negative for dysplasia or malignancy 06/2021 Findings: The esophagus was normal. The stomach was normal. The examined duodenum was normal. Impression: - Normal esophagus. - Normal stomach. - Normal examined duodenum. - No specimens collected. Colonoscopy: EndoFLIP directed at the UES or LES (8cm (EF-325) balloon length or 16cm (EF- 322) balloon length): Date: 8cm balloon Balloon inflation Balloon pressure CSA (mm^2) DI (mm^2/mmHg) Dmin (mm) Compliance 20 (ladmark ID) 30 40 50 16cm balloon Balloon inflation Balloon pressure CSA (mm^2) DI (mm^2/mmHg) Dmin (mm) Compliance 30 (ladmark ID) 40 50 60 70 High Resolution Manometry: PH/Impedance: García: CT: Esophagram: FL VSS: GES: U/S: XRAY: Other: Prior medical records were reviewed including, but not limited to, notes from referring providers, lab work, radiographic tests, and other diagnostic tests. Pertinent results were summarized above. History Past Medical History: Diagnosis Date Anxiety Chronic kidney disease stones, history of infections Depressive disorder Gastroesophageal reflux disease Psoriasis Seizure (H) 05/02/2019 no seizure since approx 2018 SVT (supraventricular tachycardia) (H24) Past Surgical History: Procedure Laterality Date EP ABLATION SVT N/A 08/28/2021 Procedure: EP Ablation SVT; Surgeon: Galo Burrell MD; Location: HEART CARDIAC BLADE BENDER FURNACE TENDER ESOPHAGOSCOPY, GASTROSCOPY, DUODENOSCOPY (EGD), COMBINED N/A 06/26/2021 Procedure: ESOPHAGOGASTRODUODENOSCOPY (EGD) (fv); Surgeon: Rey Sheppard MD; Location: GI ESOPHAGOSCOPY, GASTROSCOPY, DUODENOSCOPY (EGD), COMBINED N/A 09/12/2023 Procedure: Esophagoscopy, gastroscopy, duodenoscopy (EGD), combined; Surgeon: Rey Tay MD; Location: GI GENITOURINARY SURGERY kidney Social History Socioeconomic History Marital status: Single Spouse name: Not on file Number of children: Not on file Years of education: Not on file Highest education level: 12th grade Occupational History Not on file Tobacco Use Smoking status: Former Packs/day: 1 Types: Other, Cigarettes Quit date: 12/07/2019 Years since quittin.8 Passive exposure: Past Smokeless tobacco: Never Vaping Use Vaping Use: Never used Substance and Sexual Activity Alcohol use: Not Currently Comment: social Drug use: No Sexual activity: Yes Partners: Male control/protection: I.U.D. Other Topics Concern Parent/sibling w/ CABG, HI or angioplasty before 65F 55M? Not Asked Social History Narrative Not on file Social Determinants of Health Financial Resource Strain: Low Risk (07/14/2023) Financial Resource Strain Within the past 12 months, have you or your family members you live with been unable to get utilities (heat, electricity) when it was really needed?: No Food Insecurity: Low Risk (07/14/2023) Food Insecurity Within the past 12 months, did you worry that your food would run out before you got money to buy more?: No Within the past 12 months, did the food you bought just not last and you didn???t have money to getmore?: No Transportation Needs: Low Risk (07/14/2023) Transportation Needs Within the past 12 months, has lack of transportation kept you from medical appointments, getting your medicines, non-medical meetings or appointments, work, or from getting things that you need?: No Physical Activity: Insufficiently Active (03/10/2023) Exercise Vital Sign Days of Exercise per Week: 2 days Minutes of Exercise per Session: 30 min Stress: Stress Concern Present (03/10/2023) [facility] - Occupational Stress Questionnaire Feeling of Stress : To some extent Social Connections: Moderately Isolated (03/10/2023) Social Connection and Isolation Panel [NHANES] Frequency of Communication with Friends and Family: Three times a week Frequency of Social Gatherings with Friends and Family: Twice a week Attends Bahai Services: 1 to 4 times per year Active Member of Clubs or Organizations: No Attends Club or Organization Meetings: Not on file Marital Status: Interpersonal Safety: Low Risk (06/20/2023) Interpersonal Safety Do you feel physically and emotionally safe where you currently live?: Yes Within the past 12 months, have you been hit, slapped, kicked or otherwise physically hurt by someone?: No Within the past 12 months, have you been humiliated or emotionally abused in other ways by your partner or ex-partner?: No Housing Stability: Low Risk (07/14/2023) Housing Stability Do you have housing? : Yes Are you worried about losing your housing?: No Family History Problem Relation Age of Onset Heart Disease Maternal Grandfather Brain Tumor Sister Macular Degeneration No family hx of Glaucoma No family hx of Family history reviewed and edited as appropriate Medications and Allergies: Outpatient Encounter Medications as of 10/13/2023 Medication Sig Dispense Refill amoxicillin-clavulanate (AUGMENTIN) 875-125 MG tablet Take 1 tablet by mouth 2 times daily for 10 days 20 tablet 0 clindamycin (CLEOCIN T) 1 % external lotion Apply topically 2 times daily 60 mL 1 fluconazole (DIFLUCAN) 150 MG tablet Take 150 mg every 3 days for up to four doses 4 tablet 0 ketoconazole (NIZORAL) 2 % external shampoo Use every 1-2 days when flared. Leave in few minutes before rinsing. Use twice weekly to prevent flares. 120 mL 11 levonorgestrel (MIRENA) 52 MG (20 mcg/day) IUD by Intrauterine route once Lidocaine (LIDOCARE) 4 % Patch Place 1 patch onto the skin every 24 hours To prevent lidocaine toxicity, patient should be patch free for 12 hrs daily. 30 patch 1 LORazepam (ATIVAN) 0.5 MG tablet Take 1 tablet (0.5 mg) by mouth daily as needed for anxiety 30 tablet 0 metoprolol succinate ER (TOPROL XL) 25 MG 24 hr tablet Take 0.5 tablets (12.5 mg) by mouth daily 45tablet 1 omeprazole (PRILOSEC) [address] capsule TAKE 1 CAPSULE BY MOUTH DAILY. 90 capsule 3 PARoxetine (PAXIL) 40 MG tablet Take 1 tablet (40 mg) by mouth every morning 90 tablet 1 tacrolimus (PROTOPIC) 0.1 % external ointment Apply thin layer to psoriasis on thinner skin of face/genitals up to twice daily as needed. 60 g 11 tretinoin (RETIN-A) 0.05 % external cream Apply topically at bedtime 45 g 0 triamcinolone (KENALOG) 0.1 % external ointment Apply topically 2 times daily To psoriasis on body or arms/legs until healed then stop 80 g 2 No facility-administered encounter medications on file as of 10/13/2023. Allergies Allergen Reactions Vancomycin Review of systems: A full 10 point review of systems was obtained and was negative except for the pertinent positives and negatives stated within the HPI. Objective Findings: Physical Exam: Constitutional: BP 105/68 Pulse 70 Ht 1.676 m (5' 6) Wt 85 kg (187 lb 6.4 oz) LMP (LMP Unknown) SpO2 100% BMI 30.25 kg/m?? General: Alert, cooperative, no distress, well-appearing Head: Atraumatic, normocephalic, no obvious abnormalities Eyes: Sclera anicteric, no obvious conjunctival hemorrhage Nose: Nares normal, no obvious malformation, no obvious rhinorrhea Respiratory: Resting comfortably, no apparent distress, no cough. Gastrointestinal: Flat non distended Skin: No jaundice, no obvious rash Neurologic: AAOx3, no obvious neurologic abnormality Psychiatric: Normal Affect, appropriate mood Extremities: No obvious edema, no obvious malformation Labs, Radiology, Pathology Lab Results Component Value Date WBC 5.7 09/07/2023 WBC 8.1 06/28/2023 WBC 5.7 05/19/2023 HGB 13.4 09/07/2023 HGB 12.4 06/28/2023 HGB 13.8 05/19/2023 PLT 233 09/07/2023 PLT 214 06/28/2023 PLT 221 05/19/2023 CHOL 180 03/10/2023 CHOL 203 (H) 04/02/2021 TRIG 61 03/10/2023 TRIG 86 04/02/2021 HDL 50 03/10/2023 HDL 39 (L) 04/02/2021 ALT 26 03/15/2023 ALT 20 07/18/2021 ALT 46 04/02/2021 AST 22 03/15/2023 AST 23 07/18/2021 AST 20 04/02/2021 NA 138 09/07/2023 NA 140 06/28/2023 NA 138 05/19/2023 BUN 12.9 09/07/2023 BUN 12.3 06/28/2023 BUN 12.8 05/19/2023 CO2 26 09/07/2023 CO2 25 06/28/2023 CO2 26 05/19/2023 TSH 2.53 07/14/2023 TSH 4.56 (H) 06/28/2023 TSH 3.91 04/12/2023 Liver Function Studies - Recent Labs Lab Test 03/15/23 0941 PROTTOTAL 7.5 ALBUMIN 4.6 BILITOTAL 0.3 ALKPHOS 54 AST 22 ALT 26 Patient Active Problem List Diagnosis Date Noted Paroxysmal supraventricular tachycardia (H24) 08/28/2021 Priority: Medium SVT (supraventricular tachycardia) (H24) 08/28/2021 Priority: Medium Encounter for pharmacogenetic testing 04/17/2021 Priority: Medium 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 04/17/2021 Priority: Medium Intermediate Response CYP2C9 intermediate metabolizer (H) 04/17/2021 Priority: Medium Moderate major depression (H) 03/03/2021 Priority: Medium KALYN (generalized anxiety disorder) 09/29/2020 Priority: Medium Asthma 06/04/2020 Priority: Medium Right ureteral stone 05/27/2020 Priority: Medium Added automatically from request for surgery [id number] Left ureteral stone 05/27/2020 Priority: Medium Added automatically from request for surgery [id number] Head ache 02/18/2020 Priority: Medium Seizure (H) 05/02/2019 Priority: Medium Depressed 05/02/2019 Priority: Medium Anxiety 05/02/2019 Priority: Medium Tobacco abuse counseling 05/02/2019 Priority: Medium Psoriasis 05/02/2019 Priority: Medium Assessment and Plan Assessment/Plan: Kim Johnson is a 23 year old female with significant past medical history pertinent for anxiety,depression, seizure disorder, asthma, SVT, Paroxysmal SVT, CYP2C9 intermediate metabolizer, who is presenting as a new patient Dr. Tay with a chief complaint of reflux/dysphagia. #EoE #Hiatal Hernia - 3 cm EGD 09/12/2023 EREFS [id number]. Additional findings were notable for 3 cm hiatal hernia with GEJ flap valve Hill grade 4 as well as gastritis. Distal esophageal biopsies with 40 eosinophils per high-powered field and proximal esophageal biopsies with 25 eosinophils per high-powered field. Gastric biopsies with mild chronic inflammation negative for H. pylori/intestinal metaplasia and dysplasia. The pathophysiology of eosinophilic esophagitis was explained to the patient in great detail. The management of EoE was discussed including proton pump inhibitors (PPI), swallowed steroids (budesonide or fluticasone), food elimination diets (2-4-6 or 6-4-2), food allergy testing directed elimination diets. The newest medication on the market, dupilumab, is the only FDA approved medication and allother treatment modalities are used off label. Dilation only management was explained as well: however, this does not treat the underlying inflammatory process. The risks and benefits of all medications were explained. The risks and benefits of PPI use were discussed including but not limited to: kidney injury, dementia, fracture, C. Difficile, and community acquired pneumonia. Recent literature suggests a possible relationship between PPI use with a greater likelihood of reporting a positive COVID-19 test (Christinaario CV, Inessa WD, Yoli BMR. Am J Gastroenterol 2020;115:7969-7880).This was discussed with the patient in detail. The quality of research studies was described (retrospective vs prospective). Data from recent review article provided (Duane MCGOWAN, John PO. Proton Pump Inhibitors in 2020: Pros, Cons, and Everything in Between. [employer]. November 2020. Doi:10.1177/[id number]). The value of joint decision making was emphasized to ensure that the medication is utilized in the appropriate clinical setting. The risks and benefits of steroid use in the treatment of eosinophilic esophagitis were discussed at length. The most likely risk of oral or esophageal candidiasis were discussed. Less likely risks such as osteoporosis/osteopenia, bone fracture, diabetes or impaired glucose tolerance, adrenal insufficiency, and redistribution of fat were also discussed. We discussed dupilumab as a once weekly injection option with an efficacy of 60-80% depending on the eosinophil endpointutilized. The common side effects of injection site reaction, erythema and pain were discussed as well as the increased risk of upper respiratory infections. The patient was provided with all of the information so that the therapy chosen can be done as a shared decision making process. It was explained to the patient that management of EoE is a chronic and indefinite at this time as we know that cessation of therapy results in the return of eosinophils and the subsequent inflammatory process within the esophagus. I also described that for every change in management a repeat endoscopy is needed approximately 2 months later to assess for histologic remission. This is defined as <6 or <15 depending on the scenario. If the patient requires dilations, this can occasionally mean that an endoscopy is needed every 2-4 weeks until reaching the optimal diameter. We discussed the risks and benefits of pursuing upper endoscopy. The benefits outweigh the potential risks however the risks, including but not limited to: bleeding, infection, perforation, the need for surgical intervention, hospitalization, and in rare instances were discussed and all questions were answered. Our plan discussed today will be to obtain consultation with Nelly Mesa sales commissions analyst. Pending would then consider Omeprazole 40 mg twice daily. Patient also carries diagnosis of psoriasis and has appointment with dermatology at the end of the month. She will plan to discuss the use of Dupixent for her dermatological concerns. After meeting with the dietitian and hotel assistant manager patient was asked to inform provider on how she would like to proceed in regards to treatment options. It should be of note that with underlying hiatal hernia and symptoms of reflux that she may need low-dose PPI therapy for symptomatic management. #Irregular Bowel Patterns - Please start taking daily fiber supplementation. Start with 1 - 2 teaspoons daily which can be slowly uptitrated to 2 - 3 tablespoons as needed Follow up plan: Return to clinic 4 months and as needed. The risks and benefits of my recommendations, as well as other treatment options were discussed with the patient and any available family today. All questions were answered. Follow up: As planned above. Today, I personally spent 34 minutes in direct face to face time with the patient, of which greater than 50% of the time was spent in patient education and counseling as described above. Approximately 12 minutes were spent on indirect care associated with the patient's consultation including but not limited to review of: patient medical records to date, clinic visits,hospital records, lab results, imaging studies, procedural documentation, and coordinating care with other providers. The findings from this review are summarized in the above note. All of the above accounted for a cumulative time of 46 minutes and was performed on the date of service. The patient verbalized understanding of the plan and was appreciative for the time spent and information provided during the office visit. Meredith Carrera PA-C Division of Gastroenterology, Hepatology, and Nutrition [facility] Documentation assisted by voice recognition and documentation system. documented in this encounter Plan of Treatment Upcoming Encounters Date Type Department Care Team (Late st Contact Info) Description 10/25/2023 11:30 AM CDT Virtual Visit [facility] [address] [place] [phone] Nelly Mesa, RD [address] [place] [address] 11/03/2023 8:00 AM CDT Office Visit [facility] [address] [place] [phone] Valery Veronica PA-C [address] [place] [address] 11/29/2023 8:00 AM CDT Office Visit [facility] [address] [place] [phone] Esha Grimm PA-C [address] [place] [address] 01/02/2024 8:00 AM CDT Office Visit [facility] [address] [place] [phone] Lauren Claudio PA-C [address] [place] [address] Kelli Perez MD [address] [address] [place], [place] [address]234 Scheduled Referrals Name Type Priority Associated Diagnoses Orde r Schedule Adult GI Supervisor Water Treatment Plant Referral - Procedure Only Referral Routine: Next available opening Eosinophilic esophagitis Esophageal dysphagia Expected: 01/12/2024 (Approximate), Expires: 10/12/2024 Nutrition Referral Referral Routine: Next available opening Eosinophilic esophagitis Esophageal dysphagia Expected: 10/13/2023 (Approximate), Expires: 10/12/2024 documented as of this encounter Visit Diagnoses Diagnosis Eosinophilic esophagitis- Primary Esophageal dysphagia Dysphagia, pharyngoesophageal phase documented in this encounter Additional Health Concerns Assessment Noted Time PHQ-9 Depression Total Score: 4 12/11/20 23 8:40 AM TOWER AIR TRAFFIC CONTROL SPECIALIST documented as of this encounter Care Teams Surveyor Helper Relationship Specialty Start Date End Date Esha Grimm PA-C [address] [place] [phone] PCP - General Family Medicine 05/04/23 Diana Desir, [facility] [address] [place] [address] Pharmacist Pharmacist 04/17/21 Rain Galaviz PA-C [address] [place] [address] [address] [place] [address] Physician Automotive Brake Technician Dermatology 04/28/21 Tavia Wyatt MD [address] [place] [address] [address] [facility] [place] [address] Dermatology 07/14/21 Erica Farrell APRN CERTIFIED RECREATIONAL THERAPIST [address] [facility] [address] [place] [address] Nurse Practitioner Cardiovascular Disease 09/09/21 Rich Barrett MD [address] [facility] [address] [place], [place] [address] Physician Ophthalmology 01/21/22 Neil Kent MD [address] [place], [place] [phone] Dermatology 02/24/22 Diana Desir, [facility] [address] [place] [address] Assigned MTM Pharmacist 04/07/22 Livan Sharif MD [address] [facility] [address] [place] [address] Cardiovascular Disease 05/14/22 Catherine Cm MD [address] [facility] [address] [place] 0[address] Cardiovascular Disease 07/21/22 Valery Veronica, PAUcheC [address] [place] [address] 624815 Physician Automotive Brake Technician Dermatology 07/21/22 Brea Quinn APRN CERTIFIED RECREATIONAL THERAPIST [address] [place] [address] 108315 Nurse Practitioner Dermatology 09/21/22 Brea Quinn APRN CERTIFIED RECREATIONAL THERAPIST [address] [facility] [place] [address]252 Assigned Surgical Provider 10/09/22 [place] [address] [address] [facility] [address] [place] [address] Assigned Musculoskeletal Provider 10/09/22 Alfonso Renteria MD [address] [facility] 200 [place], [place] 345236 Assigned Neuroscience Provider 04/02/23 Radha Lomeli APRN CERTIFIED RECREATIONAL THERAPIST [address] [place] [address] Assigned Heart and Vascular Provider 05/28/23 Jelena David OD [address] [facility] [place] [address] Ophthalmology 06/15/23 Pao Joseph, RN Personal Advocate & Liaison (PAL) Nurse 08/01/23 Esha Grimm PA-C [address] [place] [phone] Assigned PCP 07/16/23 Valery Veronica PA-C [address] [place], [place] 749[address] Physician Automotive Brake Technician Dermatology 09/19/23 Rey Tay MD [address] [place] [address] 402705 Gastroenterology 09/20/23 Rocky Zepeda DO [address] [place] [address] Physician Gastroenterology 09/20/23 Philip Dumont MD [address] [place] [address] 526335 Physician Ophthalmology 09/22/23 documented as of this encounter
--- OUTSIDE RECORDS SUMMARY | 2023-10-15 21:47 | XMS_ITS | Encounter Summary ---
Author Name Unknown Organization [facility] Address [address] [place] [address] Care Team Providers Care Individual Pension Consultant Name Role Phone ThangKendrickDiana T [facility] Unavailable Rain Galaviz-C Unavailable Tavia Wyatt MD Unavailable Unavailable Erica Farrell APRN PRODUCT MARKETING DIRECTOR Unavailable Rich Barrett MD Unavailable Neil Kent MD Unavailable Diana Desir [facility] Unavailable [phone] Livan Sharif MD Unavailable Catherine Cm MD Unavailable + Valery Veronica PA-C Unavailable [phone] Brea Quinn HEEL ATTACHER WOOD PRODUCT MARKETING DIRECTOR Unavailable Brea Quinn HEEL ATTACHER WOOD PRODUCT MARKETING DIRECTOR Unavailable Jose Francisco Johnson MD Unavailable Alfonso Renteria MD Unavailable + [phone] Esha Grimm PA-C Primary Care Provider [phone] Radha Lomeli HEEL ATTACHER WOOD PRODUCT MARKETING DIRECTOR Unavailable [phone] FrankieJelena OD Unavailable Pao Joseph RN Unavailable Unavailable Esha Grimm PA-C Unavailable [phone] Valery Veronica PA-C Unavailable [phone] Rey Tay MD Unavailable DuaneRocky Unavailable Philip Dumont MD Unavailable [phone] Encounter Details Date Type Department Care Team (Latest Contact Info) Description 10/13/2023 Travel Social History Tobacco Use Types Packs/Day [...] week 03/10/2023 How often do you attend [facility] or jainism services? 1 to 4 times per year 03/10/2023 Do you belong to any clubs o r organizations such as temple groups, unions, fraternal or athletic groups, [...] Answer Date Recorded PHQ-2 Score 0 06/20/2023 [facility] - Occupational [...] exercise at this level? 30 min 03/10/2023 [place] Depression Scale Answer Date Recorded [place] Depression Score 5 01/14/2021 Last EPDS Self [...] Description 10/25/2023 11:30 AM CDT Virtual Visit [facility] [address] [place] [phone] Nelly Mesa, RD [address] [place] [address] 11/03/2023 8:00 AM CDT Office Visit [address] [phone] Valery Veronica PA-C [address] [place] [address] 11/29/2023 8:00 AM CDT Office Visit [facility] [address] [place] [phone] Esha Grimm PA-C [address] [place] [phone] 01/02/2024 8:00 AM CDT Office Visit [facility] [address] [place] [phone] Lauren Claudio PA-C [address] [place], [place] [phone] Kelli Perez MD [address] [address] documented as of this encounter Visit Diagnoses Not on filedocumented in this encounter Additional Health Concerns Assessment Noted Time PHQ-9 Depression Total Score: 4 06/20/20 23 8:40 AM PHYSICAL SCIENCES INSTRUCTOR documented as of this encounter Care Teams Individual Pension Consultant Relationship Specialty Start Date End Date Esha Grimm PA-C [address] [place] [address] PCP - General Family Medicine 05/04/23 Diana Desir, [facility] [place] [address] Pharmacist Pharmacist 04/17/21 Rain Galaviz PA-C [address] [place] [address] [address] [facility] [place] [address] Physician Counter Attendant Dermatology 04/28/21 Tavia Wyatt MD [address] [place] [address] [address] [place] [address] Dermatology 07/14/21 Erica Farrell APRN PRODUCT MARKETING DIRECTOR [address] [facility] [address] [place] [address] Nurse Practitioner Cardiovascular Disease 09/09/21 Rich Barrett MD [address] 560[address] Physician Ophthalmology 01/21/22 Neil Kent MD [address] [place] [address] 653205 Dermatology 02/24/22 Diana Desir, [facility] [place] [address] Assigned MTM Pharmacist 04/07/22 Livan Sharif MD [address] [facility] [address] [place], [place] 7[address] Cardiovascular Disease 05/14/22 Catherine Cm MD [address] [facility] [address] [place] [address] Cardiovascular Disease 07/21/22 Valery Veronica, PAUcheC [address] [place] [address] 325945 Physician Counter Attendant Dermatology 07/21/22 Brea Quinn APRN PRODUCT MARKETING DIRECTOR [address] [place] [address] 825675 Nurse Practitioner Dermatology 09/21/22 Brea Quinn APRN PRODUCT MARKETING DIRECTOR [facility]1 [place], [place] 828712 Assigned Surgical Provider 10/09/22 [place] [address] 352417 Assigned Musculoskeletal Provider 10/09/22 Alfonso Renteria MD [address] [facility] 200 [place], [place] [id number] Assigned Neuroscience Provider 04/02/23 Radha Lomeli APRN PRODUCT MARKETING DIRECTOR [address] [place] 564485 Assigned Heart and Vascular Provider 05/28/23 Jelena David OD [address] [facility] [place] [address] Ophthalmology 06/15/23 Pao Joseph, RN Personal Advocate & Liaison (PAL) Nurse 08/01/23 Esha Grimm PA-C [address] [place] [phone] Assigned PCP 07/16/23 Valery Veronica PA-C [address] [place] [address] Physician Counter Attendant Dermatology 09/19/23 Rey Tay MD [address] [place] [address] MD Gastroenterology 09/20/23 Rocky Zepeda DO [address] [place] [address] 103265 Physician Gastroenterology 09/20/23 Philip Dumont MD [address] [place] [address] 207925 Physician Ophthalmology 09/22/23 documented as of this encounter
--- OUTSIDE RECORDS SUMMARY | 2023-10-15 21:47 | XMS_ITS | Encounter Summary ---
Author Name Unknown Organization [place] Address [address] [place] [address] Care Team Providers Care Senior Mechanical Estimator Name Role Phone ThangKendrickDiana T [facility] Unavailable Rain Galaviz-C Unavailable Tavia Wyatt MD Unavailable Unavailable Erica Farrell APRN SUPPLY AIDE Unavailable Rich Barrett MD Unavailable Neil Kent MD Unavailable Diana Desir [facility] Unavailable [phone] Livan Sharif MD Unavailable Catherine Cm MD Unavailable + Valery Veronica PA-C Unavailable [phone] Brea Quinn TUBE BENDER HAND SUPPLY AIDE Unavailable [phone] Brea Quinn TUBE BENDER HAND SUPPLY AIDE Unavailable Jose Francisco Johnson MD Unavailable Alfonso Renteria MD Unavailable + [phone] Esha Grimm PA-C Primary Care Provider [phone] Radha Lomeli TUBE BENDER HAND SUPPLY AIDE Unavailable FrankieJelena OD Unavailable [phone] Pao Joseph RN Unavailable Unavailable Esha Grimm PA-C Unavailable [phone] Valery Veronica PA-C Unavailable [phone] Rey Tay MD Unavailable DuaneRocky Unavailable Philip Dumont MD Unavailable [phone] Encounter Details Date Type Department Care Team (Latest Contact Info) Description 10/10/2023 Travel Social History Tobacco Use Types Packs/Day [...] week 03/10/2023 How often do you attend [facility] or mandaeism services? 1 to 4 times per year 03/10/2023 Do you belong to any clubs o r organizations such as hinduism groups, unions, fraternal or athletic groups, [...] Answer Date Recorded PHQ-2 Score 0 06/20/2023 [facility] - Occupational [...] exercise at this level? 30 min 03/10/2023 Otter Depression Scale Answer Date Recorded Otter Depression Score 5 01/14/2021 Last EPDS Self [...] Description 10/25/2023 11:30 AM CDT Virtual Visit [facility] [address] [place] [phone] Nelly Mesa, RD [address] [place] [address] 11/03/2023 8:00 AM CDT Office Visit [address] [phone] Valery Veronica PA-C [address] [place] [address] 11/29/2023 8:00 AM CDT Office Visit [facility] [address] [place] [phone] Esha Grimm PA-C [address] [place] [phone] 01/02/2024 8:00 AM CDT Office Visit [facility] Sleep [facility] [address] [place] [phone] Lauren Claudio PA-C [address] [place], [place] [phone] Kelli Perez MD [address] 387[address] documented as of this encounter Visit Diagnoses Not on filedocumented in this encounter Additional Health Concerns Assessment Noted Time PHQ-9 Depression Total Score: 4 06/20/20 23 8:40 AM PRODUCTION ENGINE REPAIRER documented as of this encounter Care Teams Senior Mechanical Estimator Relationship Specialty Start Date End Date Esha Grimm PA-C [address] [place] [address] PCP - General Family Medicine 05/04/23 Diana Desir, [facility] [place] [address] Pharmacist Pharmacist 04/17/21 Rain Galaviz PA-C [address] [place] [address] [address] [facility] [place] [address] Physician Doughnut Fryer Dermatology 04/28/21 Tavia Wyatt MD [address] [place] [address] [address] [place] [address] Dermatology 07/14/21 Erica Farrell APRN SUPPLY AIDE 6405 [facility] [address] [place] [address] Nurse Practitioner Cardiovascular Disease 09/09/21 Rich Barrett MD [address] 724445 Physician Ophthalmology 01/21/22 Neil Kent MD [address] [place] [address] 251885 Dermatology 02/24/22 Diana Desir, [facility] [place] [address] Assigned MTM Pharmacist 04/07/22 Livan Sharif MD [address] [facility] [address] [place], [place] [address] Cardiovascular Disease 05/14/22 Catherine Cm MD [address] [facility] [address] [place] [address]195 Cardiovascular Disease 07/21/22 Valery Veronica, PAUcheC [address] [place] [address] 020265 Physician Doughnut Fryer Dermatology 07/21/22 Brea Quinn APRN SUPPLY AIDE [address] [place] [address] 915255 Nurse Practitioner Dermatology 09/21/22 Brea Quinn APRN SUPPLY AIDE [facility] [place], [place] 798332 Assigned Surgical Provider 10/09/22 [place] [address] 700687 Assigned Musculoskeletal Provider 10/09/22 Alfonso Renteria MD [address] [facility] 200 [place], [place] [phone] Assigned Neuroscience Provider 04/02/23 Radha Lomeli APRN SUPPLY AIDE [address] [place] 883525 Assigned Heart and Vascular Provider 05/28/23 Jelena David OD [address] [facility] [place] [address] Ophthalmology 06/15/23 Pao Joseph, RN Personal Advocate & Liaison (PAL) Nurse 08/01/23 Esha Grimm PA-C [address] [place] [address] Assigned PCP 07/16/23 Valery Veronica PA-C [address] [place] [address] Physician Doughnut Fryer Dermatology 09/19/23 Rey Tay MD [address] [place] [address] MD Gastroenterology 09/20/23 Rocky Zepeda DO [address] [place] [address] 542325 Physician Gastroenterology 09/20/23 Philip Dumont MD [address] [place] [address] 760485 Physician Ophthalmology 09/22/23 documented as of this encounter
--- OUTSIDE RECORDS SUMMARY | 2023-10-15 21:47 | XMS_ITS | Encounter Summary ---
Author Name Unknown Organization [place] Address [address] [place] [address] Care Team Providers Care Sisal Operator Name Role Phone ThangKendrickDiana T [facility] Unavailable Rain Galaviz-C Unavailable [phone] Tavia Wyatt MD Unavailable Unavailable Erica Farrell APRN TOOLROOM CLERK Unavailable Rich Barrett MD Unavailable Neil Kent MD Unavailable Diana Desir [facility] Unavailable [phone] Livan Sharif MD Unavailable Catherine Cm MD Unavailable + Valery Veronica PA-C Unavailable [phone] Brea Quinn IMPROVEMENT ENGINEER TOOLROOM CLERK Unavailable Brea Quinn IMPROVEMENT ENGINEER TOOLROOM CLERK Unavailable Jose Francisco Johnson MD Unavailable Alfonso Renteria MD Unavailable + [phone] Esha Grimm PA-C Primary Care Provider [phone] Radha Lomeli IMPROVEMENT ENGINEER TOOLROOM CLERK Unavailable FrankieJelena OD Unavailable [phone] Pao Joseph RN Unavailable Unavailable Esha Grimm PA-C Unavailable [phone] Valery Veronica PA-C Unavailable [phone] Rey Tay MD Unavailable ZepedaRocky Unavailable Philip Dumont MD Unavailable [phone] Encounter Details Date Type Department Care Team (Latest Contact Info) Description 10/05/2023 Travel Social History Tobacco Use Types Packs/Day [...] week 03/10/2023 How often do you attend [facility] or mandaen services? 1 to 4 times per year 03/10/2023 Do you belong to any clubs o r organizations such as faith groups, unions, fraternal or athletic groups, [...] Answer Date Recorded PHQ-2 Score 0 06/20/2023 [facility] - Occupational [...] exercise at this level? 30 min 03/10/2023 Austin Depression Scale Answer Date Recorded Austin Depression Score 5 01/14/2021 Last EPDS Self [...] Description 10/25/2023 11:30 AM CDT Virtual Visit [facility] [address] [place] [phone] Nelly Mesa, RD [address] [place] [address] 11/03/2023 8:00 AM CDT Office Visit [address] [address] Valery Veronica PA-C [address] [place] [address] 11/29/2023 8:00 AM CDT Office Visit [facility] [address] [place] [phone] Esha Grimm PA-C [address] [place] [phone] 01/02/2024 8:00 AM CDT Office Visit [facility] Sleep [facility] [address] [place] [phone] Lauren Claudio PA-C [address] [place], [place] [phone] Kelli Perez MD [address] 830944 documented as of this encounter Visit Diagnoses Not on filedocumented in this encounter Additional Health Concerns Assessment Noted Time PHQ-9 Depression Total Score: 4 06/20/20 23 8:40 AM PLACEMENT ASSISTANT documented as of this encounter Care Teams Sisal Operator Relationship Specialty Start Date End Date Esha Grimm PA-C [address] [place] [address] PCP - General Family Medicine 05/04/23 Diana Desir, [facility] [place] [address] Pharmacist Pharmacist 04/17/21 Rain Galaviz PA-C [address] [place] [address] [address] [facility] [place] [address] Physician Revenue Field Auditor Dermatology 04/28/21 Tavia Wyatt MD [address] [place] [address] [address] [place] [address] Dermatology 07/14/21 Erica Farrell APRN TOOLROOM CLERK 6405 [facility] [address] [place] [address] Nurse Practitioner Cardiovascular Disease 09/09/21 Rich Barrett MD [address] 818345 Physician Ophthalmology 01/21/22 Neil Kent MD [address] [place] [address] 762765 Dermatology 02/24/22 Diana Desir, [facility] [place] [address] Assigned MTM Pharmacist 04/07/22 Livan Sharif MD [address] [facility] [address] [place], [place] 879445 Cardiovascular Disease 05/14/22 Catherine Cm MD [address] [facility] [address] [place] 143855 Cardiovascular Disease 07/21/22 Valery Veronica, PAUcheC [address] [place] [address] 925755 Physician Revenue Field Auditor Dermatology 07/21/22 Brea Quinn APRN TOOLROOM CLERK [address] [place] [address] 923585 Nurse Practitioner Dermatology 09/21/22 Brea Quinn APRN TOOLROOM CLERK [facility]1 [place], [place] 153152 Assigned Surgical Provider 10/09/22 [place] [address] 323407 Assigned Musculoskeletal Provider 10/09/22 Alfonso Renteria MD [address] [facility] 200 [place], [place] [phone] Assigned Neuroscience Provider 04/02/23 Radha Lomeli APRN TOOLROOM CLERK [address] [place] 176545 Assigned Heart and Vascular Provider 05/28/23 Jelena David OD [address] [facility] [place] [address] Ophthalmology 06/15/23 Pao Joseph, RN Personal Advocate & Liaison (PAL) Nurse 08/01/23 Esha Grimm PA-C [address] [place] [address] Assigned PCP 07/16/23 Valery Veronica PA-C [address] [place] [address]96 Physician Revenue Field Auditor Dermatology 09/19/23 Rey Tay MD [address] [place] [address] MD Gastroenterology 09/20/23 Rocky Zepeda DO [address] [place] [address] 446675 Physician Gastroenterology 09/20/23 Philip Dumont MD [address] [place] [address] 731375 Physician Ophthalmology 09/22/23 documented as of this encounter
--- OUTSIDE RECORDS SUMMARY | 2023-10-15 21:47 | XMS_ITS | Encounter Summary ---
Author Name Unknown Organization [place] Address [address] [place] [address] Care Team Providers Care Waterproof Bag Sewer Name Role Phone ThangKendrickDiana T [facility] Unavailable Rain Galaviz-C Unavailable Tavia Wyatt MD Unavailable Unavailable Erica Farrell APRN SOIL SCIENTIST Unavailable Rich Barrett MD Unavailable Neil Ketn MD Unavailable Diana Desir [facility] Unavailable [phone] Livan Sharif MD Unavailable Catherine Cm MD Unavailable + Valery Veronica PA-C Unavailable [phone] Brea Quinn EMAIL PRODUCER SOIL SCIENTIST Unavailable Brea Quinn EMAIL PRODUCER SOIL SCIENTIST Unavailable [phone] Jose Francisco Johnson MD Unavailable Alfonso Renteria MD Unavailable + [phone] Esha Grimm PA-C Primary Care Provider [phone] Radha Lomeli EMAIL PRODUCER SOIL SCIENTIST Unavailable Frankie Jelena Templetone OD Unavailable [phone] Pao Joseph RN Unavailable Unavailable Alfa Eshalincoln Medina PA-C Unavailable Valery Veronica PA-C Unavailable [phone] Rey Tay MD Unavailable DuaneRocky Unavailable Philip Dumont MD Unavailable [phone] Reason for Visit * Reason Comments Sick Sore Throat, Fatigu, tight chest 2 x days-- took nothing for this Vaginal Problem Vaginal Itching Poss ible Vaginosis / Yeast -- has soreness x 7 days - has a chronic immune disease had found out about 2 weeks ago via [facility] Encounter Details Date Type Department Care Team (Late st Contact Info) Description 10/05/2023 11:00 AM CDT Office Visit [facility] [place] [address] [place] [address] Amalia Zayas MD [address] [facility] [place] [address] Vulvovaginal candidiasis (Primary Dx); Dysuria; Itching; Throat pain Social History Tobacco Use Types Packs/Day Years [...] week 03/10/2023 How often do you attend [facility] or caoda[facility] services? 1 to 4 times per year [...] Answer Date Recorded PHQ-2 Score 0 06/20/2023 [facility] - Occupational [...] Sign Reading Time Taken Comments Blood Pressure 128/84 10/05/2023 11:41 AM CDT Pulse 75 10/05/2023 11:41 AM CDT Temperature 36.8 ??C (98.3 ??F) 10/05/2023 11:41 AM C DT Respiratory Rate 14 10/05/2023 11:41 AM CDT Oxygen Saturation 96% 10/05/2023 11:41 AM CDT Inhaled Oxygen Concentration - - Weight 83.9 kg (185 lb) 10/05/2023 11:41 AM CDT Height - - Body Mass Index 29.86 09/07/2023 6:20 PM WEIGHT AND TEST BAR CLERK documented in this encounter Patient Instructions * Patient Instructions* Amalia Zayas MD - 10/05/2023 11:00 AM CDT Start fluconazole 150 mg every three days for up to four doses to treat vaginal yeast infection. Rapid strep test today is negative. We will contact you if your confirmation PCR test turns out positive for strep. You can try gargling with Chloraseptic spray to help with the sore throat. Urine culture is in process. If this shows a urinary infection, we will contact you. documented in this encounter Progress Notes * Amalia Zayas MD - 10/05/2023 11:00 AM CDT ICD-10-CM 1. Vulvovaginal candidiasis B37.31 fluconazole (DIFLUCAN) 150 MG tablet 2. Dysuria R30.0 UA Macroscopic with reflex to Microscopic and Culture - Clinic Collect Urine Microscopic Exam Urine Culture 3. Itching L29.9 Wet prep - lab collect Wet prep - lab collect 4. Throat pain R07.0 Streptococcus A Rapid Screen w/Reflex to PCR - Clinic Collect Group A Streptococcus PCR Throat Swab Wet prep positive for yeast, and yeast buds and hyphae seen in urine. Few WBCs seen in urine are likely of vaginal source and not reflective of urinary source of infection. RST negative. PLAN: Patient Instructions Start fluconazole 150 mg every three days for up to four doses to treat vaginal yeast infection. Rapid strep test today is negative. We will contact you if your confirmation PCR test turns out positive for strep. You can try gargling with Chloraseptic spray to help with the sore throat. Urine culture is in process. If this shows a urinary infection, we will contact you. Recommended discussing recurrent BV with her wedding day coordinator. SUBJECTIVE: Kim Johnson is a 23 year old female who presents to UC today with sore throat x 2 days and vaginal itching and discharge similar to past episodes of BV for about a week. Has multiple recurrences of BV. No fevers. Mild dysuria and pain with wiping. OBJECTIVE: BP 128/84 (BP Location: Right arm, Patient Position: Chair, Cuff Size: Adult Regular) Pulse 75 Temp 98.3 ??F (36.8 ??C) (Oral) Resp 14 Wt 83.9 kg (185 lb) SpO2 96% BMI 29.86 kg/m?? GEN: well-appearing, in NAD ENT: oral MMM, pharynx mildly erythematous Neck: no LAD noted RST negative. Wet prep positive for yeast. Negative for clue cells and trichomonas. Urine shows 5-10 WBCs on micro as well as yeast structures. Negative for nitrites on dipstick. documented in this encounter Plan of Treatment Upcoming Encounters Date Type Department Care Team (Late st Contact Info) Description 10/25/2023 11:30 AM CDT Virtual Visit [facility] [address] 4th [place] [phone] Nelly Mesa, RD 909 [place] [address] 11/03/2023 8:00 AM CDT Office Visit [facility] 830 [place] [phone] Valery Veronica PA-C [address] [place] [address] 11/29/2023 8:00 AM CDT Office Visit [facility] [address] [place] [phone] Esha Grimm PA-C [address] [place] [address] 01/02/2024 8:00 AM CDT Office Visit [facility] [address] [place] [phone] Lauren Claudio PA-C [address] [place], [place] [phone] Kelli Perez MD [address] 041674 documented as of this encounter Procedures Procedure Name Priority Date/Time Associated Diagnosis Comments STREPTOCOCCUS A RAPID SCREEN W REFELX TO PCR Routine 10/05/2023 11:41 AM CDT Throat pain GROUP A STREPTOCOCCUS PCR THROAT SWAB Routine 10/05/2023 11:41 AM CDT Throat pain UA MACROSCOPIC WITH REFLEX TO MICRO AND CULTURE Routine 10/05/2023 11:41 AM CDT Dysuria WET PREPARATION Routine 10/05/2023 11:41 AM CDT Itching URINE MICROSCOPIC EXAM Routine 11:41 AM CDT Dysuria URINE CULTURE Routine 10/05/2023 11:41 AM CDT Dysuria documented in this encounter Results * Group A Streptococcus PCR Throat Swab (10/05/2023 11:41 AM CDT) Group A strep by PCR Not Detected Not Detected 10/05/2023 5:36 PM CDT [facility] Swab STRUCTURE OF ANTERIOR PORTION OF NECK / Unknown Non-blood Collection / Unknown 10/05/2023 11:41 AM CDT 10/05/2023 12:07 PM CDT Narrative [facility] - 10/05/2023 5:36 PM CDT The Xpert Xpress Strep A test, performed on the [employer]?? Instrument Systems, is a rapid, qualitative in [...] - MICRO GENERAL ORDERABLES [facility] Inf. Diseases Diag. Lab [address] [facility], Room [address] [place] [address], [facility] * Urine Culture (10/05/2023 11:41 AM CDT) Culture <10,000 CFU/mL Mixture of Urogenital Darlene 10/06/2023 11:51 AM CDT [facility] Urine URINE SPECIMEN OBTAINED BY CLEAN CATCH PROCEDURE / Unknown Non-blood Collection / Unknown 10/05/2023 11:41 AM CDT 10/05/2023 11:52 AM CDT Amalia Zayas MD LAB - MICRO GENERAL ORDERABLES [facility] Inf. Diseases Diag. Lab [address] [facility], Room [address] [place] [address] * (ABNORMAL) Urine Microscopic Exam (10/05/2023 11:41 [...] LAB - URINE ORDERABL ES [facility] [address] [facility] Lab (no room number, 1st floor of clinic) [address], [facility] [phone] * Streptococcus A Rapid Screen w/Reflex to PCR - Clinic Collect (10/05/2023 11:41 AM CDT) Pathologist [facility] Group A Strep antigen Negative Negative 10/05/2023 12:07 PM CDT LABORATORY Swab STRUCTURE OF ANTERIOR PORTION OF NECK / Unknown Non-blood Collection / Unknown 10/05/2023 11:41 AM CDT 10/05/2023 11:59 AM CDT Amalia Zayas MD LAB - MICRO GENERAL ORDERABLES LABORATORY [address] (no room number, 1st floor of [facility] [place] [address], [facility] [phone] * (ABNORMAL) Wet prep - lab collect (10/05/2023 11:41 AM CDT) [facility] Trichomonas Absent Absent REINA 10/05/2023 11:53 AM [...] MD LAB - MICRO GENERAL ORDERABLES LABORATORY [facility] [address] [place] [address] (no room number, 1st floor of [facility] [place] [address], [facility] [phone] * (ABNORMAL) UA Macroscopic with reflex to [...] 10/05/2023 11:52 AM CDT [facility] Specific [place] Urine 1.010 1.003 - 1.035 10/05/2023 11:52 AM CDT [facility] Blood Urine Trace(A) Negative 10/05/2023 11:52 AM CDT [facility] pH Urine 6.0 5.0 - 7.0 10/05/2023 11:52 AM CDT [facility] Protein Albumin Urine Negative Negative mg/dL 10/05/2023 11:52 AM CDT [facility] Urobilinogen Urine 0.2 0.2, 1.0 E.U./dL 10/05/2023 11:52 AM CDT [facility] Nitrite Urine Negative Negative 10/05/2023 11:52 AM CDT [facility] Leukocyte Esterase Urine Moderate(A) Negative 10/05/2023 11:52 AM CDT [facility] Urine URINE SPECIMEN OBTAINED BY CLEAN CATCH PROCEDURE / Unknown Non-blood Collection / Unknown 10/05/2023 11:41 AM CDT 10/05/2023 11:48 AM CDT Amalia Zayas MD LAB - URINE ORDERABL ES LABORATORY [facility] [address] [facility] Lab (no room number, 1st floor of clinic) [place] [address], [facility] [phone] documented in this encounter Visit Diagnoses Diagnosis Vulvovaginal candidiasis- Primary Candidiasis of vulva and vagina Dysuria Itching Unspecified pruritic disorder Throat pain documented in this encounter Additional Health Concerns Assessment Noted Time PHQ-9 Depression Total Score: 4 06/20/20 23 8:40 AM WEIGHT AND TEST BAR CLERK documented as of this encounter Care Teams Waterproof Bag Sewer Relationship Specialty Start Date End Date Esha Grimm PA-C [address] [place] [address] PCP - General Family Medicine 05/04/23 Diana Desir, [facility] [address] [place] [address] Pharmacist Pharmacist 04/17/21 Rain Galaviz PA-C [address] [place] [address] [address] [place] [address] Physician Skidder Lever Operator Dermatology 04/28/21 Tavia Wyatt MD [address] [place] [address] ENMA [place] [address] Dermatology 07/14/21 Erica Farrell APRN SOIL SCIENTIST [address] [place] 112045 Nurse Practitioner Cardiovascular Disease 09/09/21 Rich Barrett MD [address] [place] [address] 454645 Physician Ophthalmology 01/21/22 Neil Kent MD [address] [place] [address] 954905 Dermatology 02/24/22 Diana Desir, [facility] [address] [place] [address] Assigned MTM Pharmacist 04/07/22 Livan Sharif MD [address] [facility] [address] [place] 756845 Cardiovascular Disease 05/14/22 Catherine Cm MD 6405 [facility] [address] [place] [address] Cardiovascular Disease 07/21/22 Valery Veronica, PA-C [address] [place] [address] 619985 Physician Skidder Lever Operator Dermatology 07/21/22 Brea Quinn APRN SOIL SCIENTIST 500 [place], [place] 221815 Nurse Practitioner Dermatology 09/21/22 Brea Quinn APRN SOIL SCIENTIST 6401 [place] [address] Assigned Surgical Provider 10/09/22 [place] [address] [place] [address] Assigned Musculoskeletal Provider 10/09/22 Alfonso Renteria MD 5775 [facility] 200 [place], [place] 008786 Assigned Neuroscience Provider 04/02/23 Radha Lomeli APRN SOIL SCIENTIST [address] [place] [phone] [place] 515985 Assigned Heart and Vascular Provider 05/28/23 Jelena David OD 3305 [facility] [place] [address] MD Ophthalmology 06/15/23 Pao Joseph, RN Personal Advocate & Liaison (PAL) Nurse 08/01/23 Esha Grimm PA-C [address] [place] [address]288483 Assigned PCP 07/16/23 Valery Veronica PA-C [address] [place] [address] 813225 Physician Skidder Lever Operator Dermatology 09/19/23 Rey Tay MD [address] [place] [address] 084675 Gastroenterology 09/20/23 Rocky Zepeda DO [address] [place] [address] 89240455 Physician Gastroenterology 09/20/23 Philip Dumont MD [address] [place] [address] 989945 Physician Ophthalmology 09/22/23 documented as of this encounter
--- OUTSIDE RECORDS SUMMARY | 2023-10-15 21:47 | XMS_ITS | Encounter Summary ---
Author Name Unknown Organization [place] Address [address] [place] [address] Care Team Providers Care Project Director Name Role Phone ThangKendrickDiana T [facility] Unavailable Rain Galaviz-C Unavailable Tavia Wyatt MD Unavailable Unavailable Erica Farrell APRN NUTRITION SERVICES MANAGER Unavailable Rich Barrett MD Unavailable Neil Kent MD Unavailable Diana Desir [facility] Unavailable [phone] Livan Sharif MD Unavailable Catherine Cm MD Unavailable + Valery Veronica PA-C Unavailable [phone] Brea Quinn CORRECTIONAL SECURITY OFFICER NUTRITION SERVICES MANAGER Unavailable Brea Quinn CORRECTIONAL SECURITY OFFICER NUTRITION SERVICES MANAGER Unavailable Jose Francisco Johnson MD Unavailable Alfonso Renteria MD Unavailable + [phone] Esha Grimm PA-C Primary Care Provider [phone] Radha Lomeli CORRECTIONAL SECURITY OFFICER NUTRITION SERVICES MANAGER Unavailable FrankieJelena OD Unavailable Pao Joseph RN Unavailable Unavailable Esha Grimm PA-C Unavailable Valery Veronica PA-C Unavailable [phone] Rey Tay MD Unavailable Rocky Zepeda DO Unavailable Philip Dumont MD Unavailable [phone] Reason for Visit * Reason Onset Date Comments Previsit 10/06/2023 Encounter Details Date Type Department Care Team (Late st Contact Info) Description 10/06/2023 PRE VISIT [facility] [address] [place] [address] Rocky Zepeda DO 500 [place] [address] Previsit Social History Tobacco Use Types Packs/Day Years [...] often do you attend chur ch or mandaen services? 1 to 4 times per year 03/10/2023 Do you belong to any clubs o r organizations such as scientologist groups, unions, fraternal or athletic groups, [...] Answer Date Recorded PHQ-2 Score 0 06/20/2023 [facility] - [facility]ational Stress Questionnaire Answer [...] exercise at this level? 30 min 03/10/2023 [place] Depression Scale Answer Date Recorded [place] Depression Score 5 01/14/2021 Last EPDS Self [...] encounter Miscellaneous Notes * Telephone Encounter - Birgit Melvin Adam - 10/04/2023 10:14 AM CDT REFERRAL INFORMATION: Referring Provider: Rey Tay MD Referring Clinic: [facility] GI Reason for Visit/Diagnosis: eosinophilic esophagitis FUTURE VISIT INFORMATION: Appointment Date: 10/06/23 Appointment Time: 7:30 AM NOTES STATUS DETAILS OFFICE NOTE from Referring Provider Internal 09/20/23 Result Note with Rey Tay MD OFFICE NOTE from Other Specialist Internal 09/28/23 - Nurse Triage with Yuliana Tay RN at [facility] Nurse Advisors 06/28/23 - UC OV with Amaris Pascal PA-C at [facility] 04/18/23 - PCC OV with Lauren Claudio PA-C at [facility] 12/17/21 - Nurse Triage with Marija Edgar APRN CNP at [facility] HOSPITAL DISCHARGE SUMMARY/ ED VISITS Internal 05/19/23 - [facility] ED visit with Medhat Neal MD 01/18/21 - [facility] ED visit with Francois Caputo PA-C MEDICATION LIST Internal ENDOSCOPY Internal 09/12/23, 06/26/21 - EGD PERTINENT LABS Internal 09/07/23 - CBCPD; BMP PATHOLOGY REPORTS (RELATED) Internal 09/12/23 - EGD bx IMAGING (CT, MRI, EGD, MRCP, Small Bowel Follow Through/SBT, MR/CT Enterography) Internal XR Chest - 05/19/23, 04/12/23, 01/10/23, 07/18/21 XR Ribs and Chest - 03/18/23 CT Abdomen Pelvis - 04/17/21, 05/27/20 CT CAP - 01/18/21 CT Chest - 12/27/20 documented in this encounter Plan of Treatment Upcoming Encounters Date Type Department Care Team (Late st Contact Info) Description 10/25/2023 11:30 AM CDT Virtual Visit [facility] [address] 4th [place] [phone] Nelly Mesa, RD [address] [place] [address] 11/03/2023 8:00 AM CDT Office Visit [address] [phone] Valery Veronica PA-C [address] [place] [address] 11/29/2023 8:00 AM CDT Office Visit [facility] [address] [place] [address] [phone] Esha Grimm PA-C [address] [place] [phone] 01/02/2024 8:00 AM CDT Office Visit [facility] [place] [address] [place] [phone] Lauren Claudio PA-C [address] [place], [place] [phone] Kelli Perez MD [address] [phone] documented as of this encounter Visit Diagnoses Not on filedocumented in this encounter Additional Health Concerns Assessment Noted Time PHQ-9 Depression Total Score: 4 06/20/20 23 8:40 AM INSTRUMENTATION CONTROLS ENGINEER documented as of this encounter Care Teams Project Director Relationship Specialty Start Date End Date Esha Grimm PA-C [address] [place] [address] PCP - General Family Medicine 05/04/23 Diana Desir, [facility] [address] [place] [address] Pharmacist Pharmacist 04/17/21 Rain Galaviz PA-C [address] [place] [address] [address] [place] [address] Physician Accounting Generalist Dermatology 04/28/21 Tavia Wyatt MD [address] [place] [address] [place] [address] Dermatology 07/14/21 Erica Farrell APRN NUTRITION SERVICES MANAGER [address] [facility] [address] [place] [address] Nurse Practitioner Cardiovascular Disease 09/09/21 Rich Barrett MD 516 [facility], [facility] [address] [place], [place] [address] Physician Ophthalmology 01/21/22 Neil Kent MD 500 [place] [address] Dermatology 02/24/22 Diana Desir, [facility] 3033 [place] [address] Assigned MTM Pharmacist 04/07/22 Livan Sharif MD [address], [facility] [address] [place] [address] Cardiovascular Disease 05/14/22 Catherine Cm MD [address] [facility] [address] [place], [place] 904745 Cardiovascular Disease 07/21/22 Valery Veronica, PA-C 909 [place] [address] Physician Accounting Generalist Dermatology 07/21/22 Brea Quinn APRN NUTRITION SERVICES MANAGER 500 [place] [address] Nurse Practitioner Dermatology 09/21/22 Brea Quinn APRN NUTRITION SERVICES MANAGER 6401 [place] [address] Assigned Surgical Provider 10/09/22 [place] [address] [facility] 300 [place] [address] Assigned Musculoskeletal Provider 10/09/22 Alfonso Renteria MD 5775 [facility] 200 [place] [address] Assigned Neuroscience Provider 04/02/23 Radha Lomeli APRN NUTRITION SERVICES MANAGER [address] [facility] [place] [address] Assigned Heart and Vascular Provider 05/28/23 Jelena David OD [address] [facility] [address] MD Ophthalmology 06/15/23 Poa Joseph, VJ Personal Advocate & Liaison (PAL) Nurse 08/01/23 Esha Grimm PA-C [address] [place] [phone] Assigned PCP 07/16/23 Valery Veronica PA-C [address] [place] [address] 215385 Physician Accounting Generalist Dermatology 09/19/23 Rey Tay MD [address] [place] [address] 662955 Gastroenterology 09/20/23 Rocky Zepeda DO [address] [place] [address] 148855 Physician Gastroenterology 09/20/23 Philip Dumont MD [address] [place] [address] 331105 Physician Ophthalmology 09/22/23 documented as of this encounter
--- OUTSIDE RECORDS SUMMARY | 2023-10-15 21:47 | XMS_ITS | Encounter Summary ---
Author Name Unknown Organization [place] Address [address] [place] [address] Care Team Providers Care Manager Hotel Name Role Phone ThangKendrickDiana T [facility] Unavailable Rain Galaviz-C Unavailable [phone] Tavia Wyatt MD Unavailable Unavailable Erica Farrell APRN BURGLAR ALARM INSPECTOR Unavailable Rich Barrett MD Unavailable Neil Kent MD Unavailable Diana Desir [facility] Unavailable [phone] Livan Sharif MD Unavailable Catherine Cm MD Unavailable + Valery Veronica PA-C Unavailable [phone] Brea Quinn MEDICAL RECORDS RECEPTIONIST BURGLAR ALARM INSPECTOR Unavailable Brea Quinn MEDICAL RECORDS RECEPTIONIST BURGLAR ALARM INSPECTOR Unavailable [phone] Jose Francisco Johnson MD Unavailable Alfonso Renteria MD Unavailable + [phone] Esha Grimm PA-C Primary Care Provider [phone] Radha Lomeli MEDICAL RECORDS RECEPTIONIST BURGLAR ALARM INSPECTOR Unavailable [phone] FrankieJelena OD Unavailable Pao Joseph RN Unavailable Unavailable Esha Grimm PA-C Unavailable [phone] Valery Veronica PA-C Unavailable [phone] Rey Tay MD Unavailable ZepedaRocky Unavailable Philip Dumont MD Unavailable [phone] Encounter Details Date Type Department Care Team (Latest Contact Info) Description 10/12/2023 Travel Social History Tobacco Use Types Packs/Day [...] you attend [facility] or jehovah's witness services? 1 to 4 times per year 03/10/2023 Do you belong to any clubs o r organizations such as orthodox groups, unions, fraternal or athletic groups, [...] Answer Date Recorded PHQ-2 Score 0 06/20/2023 [facility] - Occupational Stress [...] exercise at this level? 30 min 03/10/2023 [place] Depression Scale Answer Date Recorded [place] Depression Score 5 01/14/2021 Last EPDS Self [...] Description 10/25/2023 11:30 AM CDT Virtual Visit [facility] [address] [place] [phone] Nelly Mesa, RD [address] [place] [address] 11/03/2023 8:00 AM CDT Office Visit [address] [phone] Valery Veronica PA-C [address] [place] [address] 11/29/2023 8:00 AM CDT Office Visit [facility] [address] [place] [phone] Esha Grimm PA-C [address] [place] [phone] 01/02/2024 8:00 AM CDT Office Visit [facility] Sleep [facility] [address] [place] [phone] Lauren Claudio PA-C [address] [place], [place] [phone] Kelli Perez MD [address] [id number] documented as of this encounter Visit Diagnoses Not on filedocumented in this encounter Additional Health Concerns Assessment Noted Time PHQ-9 Depression Total Score: 4 06/20/20 23 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 documented as of this encounter Care Teams Manager Hotel Relationship Specialty Start Date End Date Esha Grimm PA-C [address] [place] [address] PCP - General Family Medicine 05/04/23 Diana Desir, [facility] [place] [address] Pharmacist Pharmacist 04/17/21 Rain Galaviz PA-C [address] [place] [address] [address] [facility] [place] [address] Physician Senior Accounting Specialist Dermatology 04/28/21 Tavia Wyatt MD [address] [place] [address] [address] [place] [address] Dermatology 07/14/21 Erica Farrell APRN BURGLAR ALARM INSPECTOR 6405 [facility] [address] [place] [address] Nurse Practitioner Cardiovascular Disease 09/09/21 Rich Barrett MD [address] 093745 Physician Ophthalmology 01/21/22 Neil Kent MD [address] [place] [address] 701045 Dermatology 02/24/22 Diana Desir, [facility] [place] [address] Assigned MTM Pharmacist 04/07/22 Livan Sharif MD [address] [facility] [address] [place], [place] [address] Cardiovascular Disease 05/14/22 Catherine Cm MD [address] [facility] [address] [place] 665375 Cardiovascular Disease 07/21/22 Valery Veronica, PAUcheC [address] [place] [address] 272595 Physician Senior Accounting Specialist Dermatology 07/21/22 Brea Quinn APRN BURGLAR ALARM INSPECTOR [address] [place] [address] 944195 Nurse Practitioner Dermatology 09/21/22 Brea Quinn APRN BURGLAR ALARM INSPECTOR [facility] [place], [place] 776262 Assigned Surgical Provider 10/09/22 [place] [address] 706867 Assigned Musculoskeletal Provider 10/09/22 Alfonso Renteria MD [address] [facility] 200 [place], [place] [phone] Assigned Neuroscience Provider 04/02/23 Radha Lomeli APRN BURGLAR ALARM INSPECTOR [address] [place] 741815 Assigned Heart and Vascular Provider 05/28/23 Jelena David OD [address] [place] [address] Ophthalmology 06/15/23 Pao Joseph, RN Personal Advocate & Liaison (PAL) Nurse 08/01/23 Esha Grimm PA-C [address] [place] [phone] Assigned PCP 07/16/23 Valery Veronica PA-C [address] [place] [address] Physician Senior Accounting Specialist Dermatology 09/19/23 Rey Tay MD [address] [place] [address] MD Gastroenterology 09/20/23 Rocky Zepeda DO [address] [place] [address] 147525 Physician Gastroenterology 09/20/23 Philip Dumont MD [address] [place] [address] 984075 Physician Ophthalmology 09/22/23 documented as of this encounter
--- OUTSIDE RECORDS SUMMARY | 2023-10-15 21:47 | XMS_ITS | Encounter Summary ---
Author Name Unknown Organization [place] Address [address] [place] [address] Care Team Providers Care Shipyard Painter Apprentice Name Role Phone ThangKendrickDiana T [facility] Unavailable Rain Galaviz-C Unavailable Tavia Wyatt MD Unavailable Unavailable Erica Farrell APRN RV SERVICER Unavailable Rich Barrett MD Unavailable Neil Kent MD Unavailable Diana Desir [facility] Unavailable [phone] Livan Sharif MD Unavailable Catherine Cm MD Unavailable + Valery Veronica PA-C Unavailable [phone] Brea Quinn FOUNTAIN WORKER RV SERVICER Unavailable Brea Quinn FOUNTAIN WORKER RV SERVICER Unavailable Jose Francisco Johnson MD Unavailable Alfonso Renteria MD Unavailable + [phone] Esha Grimm PA-C Primary Care Provider [phone] Radha Lomeli FOUNTAIN WORKER RV SERVICER Unavailable Jelena David OD Unavailable Pao Joseph RN Unavailable Unavailable Esha Grimm PA-C Unavailable [phone] Valery Veronica PA-C Unavailable [phone] Rey Tay MD Unavailable Rocky Zepeda Unavailable Philip Dumont MD Unavailable [phone] Reason for Visit * Reason Comments Urgent Care Was here a week ago, has body aches , chills, sinus congestion, chest burning and pain with cough. Sinus pressure. Green nasal discharge . Non productive cough x 1 week. Tested at home for covid it was negative. Encounter Details Date Type Department Care Team (Late st Contact Info) Description 10/10/2023 4:20 PM CDT Office Visit [facility] [place] [id number] [place], [place] [address] [address] Jaron Hager PA-C 1655 [place] [address] Congestion of paranasal sinus (Primary Dx) Social History Tobacco Use Types Packs/Day Years [...] often do you attend chur ch or episcopalian services? 1 to 4 times per year 03/10/2023 Do you belong to any clubs o r organizations such as samaritan groups, unions, fraternal or athletic groups, [...] exercise at this level? 30 min 03/10/2023 [place] Depression Scale Answer Date Recorded [place] Depression Score 5 01/14/2021 Last EPDS Self [...] Sign Reading Time Taken Comments Blood Pressure 102/64 10/10/2023 4:48 PM CDT Pulse 84 10/10/2023 4:48 PM CDT Temperature 36.9 ??C (98.4 ??F) 10/10/2023 4:48 PM CD T Respiratory Rate 16 10/10/2023 4:48 PM CDT Oxygen Saturation 98% 10/10/2023 4:48 PM CDT Inhaled Oxygen Concentration - - Weight 83.9 kg (185 lb) 10/10/2023 4:48 PM CDT Height 167.6 cm (5' 6) 10/10/2023 4:48 PM CDT Body Mass Index 29.86 10/10/2023 4:48 PM CDT documented in this encounter Patient Instructions * Patient Instructions* Jaron Hager PA-C - 10/10/2023 4:20 PM CDT Cough You were seen today for a cough. This is likely due to a virus and will improve over the next 1-2 weeks on its own. Symptom management: - Drink plenty of non-caffeinated fluids - Avoid smoke exposure - May use tylenol or ibuprofen for discomfort - Drink a warm non-caffeinated tea with honey - Place a warm humidifier in your bedroom at night - [employer] Reasons to return for re-evaluation: - Develop a fever 100.4 or higher, current fever worsens, or fever does not improve in 72 hours - Difficulty breathing or shortness of breath - Cough continues to worsen including coughing up blood or coughing up thick, colored phlegm - Unable to tolerate fluids Otherwise, if symptoms have not improved in 7 days, follow-up with your primary care provider. documented in this encounter Progress Notes * Jaron Hager PA-C - 10/10/2023 4:20 PM CDT Assessment & Plan: Problem List Items Addressed This Visit None Visit Diagnoses Congestion of paranasal sinus - Primary Relevant Medications amoxicillin-clavulanate (AUGMENTIN) 875-125 MG tablet Medical Decision Making Patient presents with cough and sinus congestion for 6 to 7 days. Symptoms consistent with a viral upper respiratory infection. Did opt to print prescription for antibiotics if sinus congestion worsens or does not improve in 3 days. Otherwise no signs of respiratory distress with clear lung auscultation. Discussed treatment and symptomatic care. Allergies and medication interactions reviewed. Discussed signs of worsening symptoms and when to follow-up with PCP if no symptom improvement. Subjective: Kim Johnson is a 23 year old female here for evaluation of sinus congestion and soreness in the chest. Onset of symptoms was 1 week ago. Patient has had sore throat, cough, and rhinorrhea. She more recently noted worsening pressure in the sinuses and increased pains in the chest when she is coughing. No fevers. Patient was seen 1 week ago and tested negative for strep throat The following portions of the patient's history were reviewed and updated as appropriate: allergies, current medications, and problem list. Review of Systems Pertinent items are noted in HPI. Allergies Allergies Allergen Reactions Vancomycin Family History Problem Relation Age of Onset Heart Disease Maternal Grandfather Brain Tumor Sister Macular Degeneration No family hx of Glaucoma No family hx of Social History Tobacco Use Smoking status: Former Packs/day: 1 Types: Other, Cigarettes Quit date: 12/07/2019 Years since quittin.8 Passive exposure: Past Smokeless tobacco: Never Substance Use Topics Alcohol use: Not Currently Comment: social Objective: BP 102/64 Pulse 84 Temp 98.4 ??F (36.9 ??C) (Oral) Resp 16 Ht 1.676 m (5' 6) Wt 83.9 kg (185 lb) LMP (LMP Unknown) SpO2 98% BMI 29.86 kg/m?? General appearance - alert, well appearing, and in no distress and non-toxic Ears - TMs intact with mild serous fluid, no bulging erythema Nose - tenderness to percussion over the right maxillary sinus Mouth - mucous membranes moist, pharynx normal without lesions Neck - supple, no significant adenopathy Chest - clear to auscultation, no wheezes, rales or rhonchi, symmetric air entry Heart - normal rate, regular rhythm, normal S1, S2, no murmurs, rubs, clicks or gallops Lab & Imaging Results No results found for any visits on 10/10/23. I personally reviewed these results and discussed findings with the patient. The use of [employer] dictation services was used to construct the content of this note; any grammatical errors are non-intentional. Please contact the author directly if you are in need of any clarification. documented in this encounter Plan of Treatment Upcoming Encounters Date Type Department Care Team (Late st Contact Info) Description 10/25/2023 11:30 AM CDT Virtual Visit [facility] [address] 4th [place] [phone] Nelly Mesa, RD [address] [place] [address] 11/03/2023 8:00 AM CDT Office Visit [address] [address] Valery Veronica PA-C [address] [place] [address] 11/29/2023 8:00 AM CDT Office Visit [address] [phone] Esha Grimm PA-C [address] [place] [phone] 01/02/2024 8:00 AM CDT Office Visit [facility] [address] [place] [phone] Lauren Claudio PA-C [address] [place], [place] [phone] Kelli Perez MD [address] [facility] 106 [place], [place] 412424 documented as of this encounter Visit Diagnoses Diagnosis Congestion of paranasal sinus- Primary documented in this encounter Additional Health Concerns Assessment Noted Time PHQ-9 Depression Total Score: 4 06/20/20 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 documented as of this encounter Care Teams Shipyard Painter Apprentice Relationship Specialty Start Date End Date Esha Grimm PA-C [address] [place] [address] PCP - General Family Medicine 05/04/23 Diana Desir, [facility] [address] [place] [address] Pharmacist Pharmacist 04/17/21 Rain Galaviz PA-C [address] [place] [address] [address] [place] [id number] Physician Physically Impaired Teacher Dermatology 04/28/21 Tavia Wyatt MD [address] [place] [address] [address] [place] [address] Dermatology 07/14/21 Erica Farrell APRN RV SERVICER [address] [place] 287485 Nurse Practitioner Cardiovascular Disease 09/09/21 Rich Barrett MD 516 [facility] [place] [address] Physician Ophthalmology 01/21/22 Neil Kent MD 500 [place], [place] 823365 MD Dermatology 02/24/22 Diana Desir, [facility] 3033 [place], [place] 261076 Assigned [place] Pharmacist 04/07/22 Livan Sharif MD [address], [place] [address] [place] 909615 Cardiovascular Disease 05/14/22 Catherine Cm MD [address] [place] [address] [place], [place] 064885 Cardiovascular Disease 07/21/22 Valery Veronica, PA-C 909 [place], [place] 628455 Physician Physically Impaired Teacher Dermatology 07/21/22 Brea Quinn APRN RV SERVICER 500 [place], [place] 945835 Nurse Practitioner Dermatology 09/21/22 Brea Quinn APRN RV SERVICER 6401 [facility] [place] [address] Assigned Surgical Provider 10/09/22 [place] [address] [address] [place] [address] Assigned Musculoskeletal Provider 10/09/22 Alfonso Renteria MD [address] [facility] 200 [place], [place] 348296 Assigned Neuroscience Provider 04/02/23 Radha Lomeli APRN RV SERVICER 6[address] [facility] [address] [place] [address] Assigned Heart and Vascular Provider 05/28/23 Jelena David OD [address] [facility] [place] [address] Ophthalmology 06/15/23 Pao Joseph, RN Personal Advocate & Liaison (PAL) Nurse 08/01/23 Esha Grimm PA-C [address] [place] [phone] Assigned PCP 07/16/23 Valery Veronica PA-C 909 [place], [place] 296075 Physician Physically Impaired Teacher Dermatology 09/19/23 Rey Tay MD 909 [place], [place] 133995 Gastroenterology 09/20/23 Rocky Zepeda DO [address] [place] [address] Physician Gastroenterology 09/20/23 Philip Dumont MD [address] [place] [address] Physician Ophthalmology 09/22/23 documented as of this encounter
--- OUTSIDE RECORDS SUMMARY | 2023-10-15 21:48 | XMS_ITS | Encounter Summary ---
Author Name Unknown Organization [place] Address [address] [place] [address] Care Team Providers Care Assembler Dielectric Heater Name Role Phone ThangKendrickDiana T [facility] Unavailable Rain Galaviz-C Unavailable Tavia Wyatt MD Unavailable Unavailable Erica Farrell APRN OTR OWNER OPERATOR Unavailable Rich Barrett MD Unavailable Neil Kent MD Unavailable Diana Desir [facility] Unavailable [phone] Livan Sharif MD Unavailable Catherine Cm MD Unavailable + Valery Veronica PA-C Unavailable [phone] Brea Quinn WATCH ASSEMBLY INSPECTOR OTR OWNER OPERATOR Unavailable Brea Quinn WATCH ASSEMBLY INSPECTOR OTR OWNER OPERATOR Unavailable Jose Francisco Johnson MD Unavailable Alfonso Renteria MD Unavailable + [phone] Esha Grimm PA-C Primary Care Provider [phone] Radha Lomeli WATCH ASSEMBLY INSPECTOR OTR OWNER OPERATOR Unavailable FrankieJelena OD Unavailable Pao Joseph RN Unavailable Unavailable Esha Grimm PA-C Unavailable [phone] Valery Veronica PA-C Unavailable [phone] Rey Tay MD Unavailable DuaneRocky Unavailable Philip Dumont MD Unavailable [phone] Encounter Details Date Type Department Care Team (Late st Contact Info) Description 09/20/2023 MyC Medical Advice [facility] [address] [place] [address] Jeffery Vieira, RN Social History Tobacco Use Types Packs/Day Years [...] How often do you attend chur or shinto services? 1 to 4 times per year 03/10/2023 Do you belong to any clubs o r organizations such as gnosticist groups, unions, fraternal or athletic groups, [...] Answer Date Recorded PHQ-2 Score 0 06/20/2023 [facility] [place] of Occupat ional Health - Occupational Stress [...] exercise at this level? 30 min 03/10/2023 [place] Depression Scale Answer Date Recorded [place] Depression Score 5 01/14/2021 Last EPDS Self [...] Description 10/25/2023 11:30 AM CDT Virtual Visit [facility] [address] 4th [place] [address] Nelly Mesa, RD [address] [place] [address] 11/03/2023 8:00 AM CDT Office Visit [address] [phone] Valery Veronica, ROVERTO [address] [place] [address] 11/29/2023 8:00 AM CDT Office Visit [facility] [address] [place] [phone] Esha Grimm PA-C [address] [place] [phone] 01/02/2024 8:00 AM CDT Office Visit [facility] [address] [place] [phone] Lauren Claudio PA-C [address] [place], [place] [phone] Kelli Perez MD [address] [place], [place] 041104 documented as of this encounter Visit Diagnoses Not on filedocumented in this encounter Additional Health Concerns Assessment Noted Time PHQ-9 Depression Total Score: 4 06/20/20 23 8: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 [address] [place] [address] Pharmacist Pharmacist 04/17/21 Rain Galaviz PA-C [address] [place] [address] [address] [place] [address] Physician Artist Agent Dermatology 04/28/21 Tavia Wyatt MD [address] [place] [address] [address] [place] [address] Dermatology 07/14/21 Erica Farrell APRN OTR OWNER OPERATOR 6405 [facility] [address] [place], [place] 846745 Nurse Practitioner Cardiovascular Disease 09/09/21 Rich Barrett MD 516 [facility] 9A [place], [place] 207475 Physician Ophthalmology 01/21/22 Neil Kent MD 500 [place], [place] [phone] Dermatology 02/24/22 Diana Desir, [facility] 3033 [place], [place] 463036 Assigned MTM Pharmacist 04/07/22 Livan Sharif MD [address] [facility] [address], [facility] [address] [place], [place] 0[address] Cardiovascular Disease 05/14/22 Catherine Cm MD [address] [facility] [address] [place] 384155 Cardiovascular Disease 07/21/22 Valery Veronica, PAUcheC 909 [place], [place] 425195 Physician Artist Agent Dermatology 07/21/22 Brea Quinn APRN OTR OWNER OPERATOR 500 [place], [place] 185135 Nurse Practitioner Dermatology 09/21/22 Brea Quinn APRN OTR OWNER OPERATOR [address] [place] [address] 856242 Assigned Surgical Provider 10/09/22 [place] [address] [facility] 300 [place], [place] 926357 Assigned Musculoskeletal Provider 10/09/22 Alfonso Renteria MD 5775 [facility] 200 [place], [place] 490496 Assigned Neuroscience Provider 04/02/23 Radha Lomeli APRN OTR OWNER OPERATOR 6405 [facility] [address] [address] [place] 468435 Assigned Heart and Vascular Provider 05/28/23 Jelena David OD 3305 [facility] [place] [address] MD Ophthalmology 06/15/23 Pao Joseph, VJ Personal Advocate & Liaison (PAL) Nurse 08/01/23 Esha Grimm PAUcheC [address] [place] [phone] Assigned PCP 07/16/23 Valery Veronica PAUcheC [address] [place] [address] 325535 Physician Artist Agent Dermatology 09/19/23 Rey Tay MD [address] [place] [address] 488035 Gastroenterology 09/20/23 Rocky Zepeda DO [address] [place] [address] 280015 Physician Gastroenterology 09/20/23 Philip Dumont MD [address] [place] [address] 877015 Physician Ophthalmology 09/22/23 documented as of this encounter
--- OUTSIDE RECORDS SUMMARY | 2023-10-15 21:48 | XMS_ITS | Encounter Summary ---
Author Name Unknown Organization [place] Address [address] [place] [address] Care Team Providers Care Data Center Engineer Name Role Phone ThangKendrickDiana T [facility] Unavailable Rain Galaviz-C Unavailable [phone] Tavia Wyatt MD Unavailable Unavailable Erica Farrell APRN BUSINESS MANAGEMENT ANALYST Unavailable Rich Barrett MD Unavailable Neil Kent MD Unavailable Diana Desir [facility] Unavailable [phone] Livan Sharif MD Unavailable Catherine Cm MD Unavailable + Valery Veronica PA-C Unavailable [phone] Brea Quinn LCPC BUSINESS MANAGEMENT ANALYST Unavailable Brea Quinn LCPC BUSINESS MANAGEMENT ANALYST Unavailable [phone] Jose Francisco Johnson MD Unavailable Alfonso Renteria MD Unavailable + [phone] Esha Grimm PA-C Primary Care Provider [phone] Radha Lomeli LCPC BUSINESS MANAGEMENT ANALYST Unavailable Jelena David OD Unavailable Pao Joseph RN Unavailable Unavailable Esha Grimm PAUcheC Unavailable [phone] Reason for Visit * Reason Comments Medication Refill Encounter Details Date Type Department Care Team (Late st Contact Info) Description 09/16/[address] [address] Marija Edgar APRN BUSINESS MANAGEMENT ANALYST Medication Refill Social History Tobacco Use Types Packs/Day Years [...] often do you attend chur ch or mormon services? 1 to 4 times per year 03/10/2023 Do you belong to any clubs o r organizations such as yazidism groups, unions, fraternal or athletic groups, [...] Date Recorded PHQ-2 Score 0 06/20/2023 [facility] of Occupat ional Health - Occupational Stress [...] exercise at this level? 30 min 03/10/2023 [place] Depression Scale Answer Date Recorded [place] Depression Score 5 01/14/2021 Last EPDS Self [...] Description 10/25/2023 11:30 AM CDT Virtual Visit [facility] [address] 4th [place] [phone] Nelly Mesa, RD 909 [place] [address] 11/03/2023 8:00 AM CDT Office Visit [facility] [address] [place] [phone] Valery Veronica, PABaldo [address] [place] [address] 11/29/2023 8:00 AM CDT Office Visit [facility] [address] [place] [phone] Esha Grimm PABaldo [address] [place] [phone] 01/02/2024 8:00 AM CDT Office Visit [facility] [address] [place] [phone] Lauren Claudio PA-C [address] [place], [place] [phone] Kelli Perez MD [address] 064354 documented as of this encounter Visit Diagnoses Diagnosis Epigastric pain Abdominal pain, epigastric documented in this encounter Additional Health Concerns Assessment Noted Time PHQ-9 Depression Total Score: 4 06/20/20 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 [place] [address] Dermatology 07/14/21 Erica Farrell APRN BUSINESS MANAGEMENT ANALYST 6405 [facility] [address] [place], [place] 562375 Nurse Practitioner Cardiovascular Disease 09/09/21 Rich Barrett MD 516 [facility] 9A [place], [place] 133965 Physician Ophthalmology 01/21/22 Neil Kent MD 500 [place], [place] 363075 Dermatology 02/24/22 Diana Desir, [facility] [address] [place] [address] Assigned MTM Pharmacist 04/07/22 Livan Sharif MD [address], [facility] [address] [place] [address] Cardiovascular Disease 05/14/22 Catherine Cm MD [address] [facility] [address] [place] 040425 Cardiovascular Disease 07/21/22 Valery Veronica PAUcheC [address] [place] [address] 569715 Physician Film Color Tester Dermatology 07/21/22 Brea Quinn APRN BUSINESS MANAGEMENT ANALYST 500 [place], [place] 770395 Nurse Practitioner Dermatology 09/21/22 Brea Quinn APRN BUSINESS MANAGEMENT ANALYST 6401 [facility] [place] 524602 Assigned Surgical Provider 10/09/22 [place] [address] [address] [facility] 300 [place] [address] Assigned Musculoskeletal Provider 10/09/22 Alfonso Renteria MD 5775 [facility] 200 [place], [place] 275456 Assigned Neuroscience Provider 04/02/23 Radha Lomeli APRN BUSINESS MANAGEMENT ANALYST [address] [place] [address] Assigned Heart and Vascular Provider 05/28/23 Jelena David SONJA [address] [facility] [place] [address] Ophthalmology 06/15/23 Pao Joseph, RN Personal Advocate & Liaison (PAL) Nurse 08/01/23 Esha Grimm, PAUcheC [address] [place] [phone] Assigned PCP 07/16/23 documented as of this encounter
--- OUTSIDE RECORDS SUMMARY | 2023-10-15 21:48 | XMS_ITS | Encounter Summary ---
Author Name Unknown Organization [place] Address [address] [place] [address] Care Team Providers Care Excavating Contractor Name Role Phone ThangKendrickDiana T [facility] Unavailable Rain Galaviz-C Unavailable Tavia Wyatt MD Unavailable Unavailable Erica Farrell APRN EDUCATION TECHNICIAN Unavailable Rich Barrett MD Unavailable Neil Kent MD Unavailable Diana Desir [facility] Unavailable [phone] Livan Sharif MD Unavailable Catherine Cm MD Unavailable + Valery Veronica PA-C Unavailable [phone] Brea Quinn PROJECT ESTIMATOR EDUCATION TECHNICIAN Unavailable Brea Quinn PROJECT ESTIMATOR EDUCATION TECHNICIAN Unavailable Jose Francisco Johnson MD Unavailable Alfonso Renteria MD Unavailable + [phone] Esha Grimm PA-C Primary Care Provider [phone] Radha Lomeli PROJECT ESTIMATOR EDUCATION TECHNICIAN Unavailable FrankieJelena OD Unavailable Pao Joseph RN Unavailable Unavailable Esha Grimm PA-C Unavailable [phone] Valery Veronica PA-C Unavailable [phone] Rey Tay MD Unavailable Duane Rocky DO Unavailable Philip Dumont MD Unavailable [phone] Encounter Details Date Type Department Care Team (Late st Contact Info) Description 09/20/2023 Telephone [facility] [address] 4th [place] [address] Jeffery Vieira, RN Social History [...] often do you attend chur ch or oriental orthodox services? 1 to 4 times per year 03/10/2023 Do you belong to any clubs o r organizations such as buddhism groups, unions, fraternal or athletic groups, [...] Answer Date Recorded PHQ-2 Score 0 06/20/2023 [facility] [place] of Occupat ional [facility] - Occupational Stress Questionnaire Answer Date Recorded [...] exercise at this level? 30 min 03/10/2023 [place] Depression Scale Answer Date Recorded [place] Depression Score 5 01/14/2021 Last EPDS Self [...] encounter Miscellaneous Notes * Telephone Encounter - Jeffery Vieira RN - 09/20/2023 12:13 PM CDT CLINIC COORDINATORS, Please call pt to schedule New Patient visit for next available in [facility] with PAULA. Please let RN know when scheduled. Thank you. Jeffery * Telephone Encounter - Jeffery Vieira RN - 09/20/2023 12:09 PM CDT ----- Message from Rey Tay MD sent at 09/20/2023 9:31 AM CDT ----- Kim, These biopsies are unremarkable with the exception of the esophageal biopsies which demonstrated eosinophilic esophagitis. Eosinophilic esophagitis is a common condition that causes some difficulty with swallowing solid foods, mostly. Some patients experience this in some patients do not. Many of the patients to have this are diagnosed incidentally. I recommend you follow-up in esophageal clinic with either Meredith Carrera or Evans Zepeda to discuss this condition further in the future I will have my coordinator set up a follow-up for you. Dr. Jasvir Toure can we set Kim up with an appointment in esophageal clinic thanks documented in this encounter Plan of Treatment Upcoming Encounters Date Type Department Care Team (Late st Contact Info) Description 10/25/2023 11:30 AM CDT Virtual Visit [facility] [address] [address] Nelly Mesa, RD [address] [place] [address] 11/03/2023 8:00 AM CDT Office Visit [facility] 830 [place] [address] Valery Veronica PA-C 909 [place] [address] 11/29/2023 8:00 AM CDT Office Visit [facility] [address] [place] [address] Esha Grimm PA-C [address] [place] [address] 01/02/2024 8:00 AM CDT Office Visit [facility] [address] [place] [phone] Lauren Claudio PA-C [address] [place] [address] Kelli Perez MD [address] [place], [place] 668084 documented as of this encounter Visit Diagnoses Not on filedocumented in this encounter Additional Health Concerns Assessment Noted Time PHQ-9 Depression Total Score: 4 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 encounter Care Teams Excavating Contractor Relationship Specialty Start Date End Date Esha Grimm PA-C [id number] [place] [address] PCP - General Family Medicine 05/04/23 Diana Desir, [facility] 3033 [place] [address] Pharmacist Pharmacist 04/17/21 Rain Galaviz PA-C [address] [place] [address] DR [address] [place] [address] Physician Rivet Tapping Machine Operator Dermatology 04/28/21 Tavia Wyatt MD [address] [place] [address] DR [facility] [facility] [address] Dermatology 07/14/21 Erica Farrell APRN EDUCATION TECHNICIAN [address] [place] [address] Nurse Practitioner Cardiovascular Disease 09/09/21 Rich Barrett MD [address] [place] [address], [facility] 9A [place] [address] Physician Ophthalmology 01/21/22 Neil Kent MD 500 [place], [place] 423795 Dermatology 02/24/22 Diana Desir, [facility] [address] [place] [address] Assigned MTM Pharmacist 04/07/22 Livan Sharif MD [address] [place] [address] Cardiovascular Disease 05/14/22 Catherine Cm MD [address] [place] 206115 Cardiovascular Disease 07/21/22 Valery Veronica PA-C 909 [place], [place] 487665 Physician Rivet Tapping Machine Operator Dermatology 07/21/22 Brea Quinn APRN EDUCATION TECHNICIAN 500 [place], [place] 905995 Nurse Practitioner Dermatology 09/21/22 Brea Quinn APRN EDUCATION TECHNICIAN 6401 [facility] [place], [place] 463022 Assigned Surgical Provider 10/09/22 [place] [address] [facility] 300 [place], [place] 221497 Assigned Musculoskeletal Provider 10/09/22 Alfonso Renteria MD [address] [facility] 200 [place] [address] Assigned Neuroscience Provider 04/02/23 Radha Lomeli APRN EDUCATION TECHNICIAN 6405 [facility] [address] [place] 640555 Assigned Heart and Vascular Provider 05/28/23 Jelena David OD 3305 [facility] [place] [address] Ophthalmology 06/15/23 Pao Joseph, RN Personal Advocate & Liaison (PAL) Nurse 08/01/23 Esha Grimm PA-C [address] [place] [phone] Assigned PCP 07/16/23 Valery Veronica PA-C 9 [place] [address] Physician Rivet Tapping Machine Operator Dermatology 09/19/23 Rey Tay MD [address] [place] [address] 601515 MD Gastroenterology 09/20/23 Rocky Zepeda DO [address] [place] [address] 11894455 Physician Gastroenterology 09/20/23 Philip Dumont MD [address] [place] [address]1985 Physician Ophthalmology 09/22/23 documented as of this encounter
--- OUTSIDE RECORDS SUMMARY | 2023-10-15 21:48 | XMS_ITS | Encounter Summary ---
Author Name Unknown Organization [place] Address [address] [place] [address] Care Team Providers Care Ladle Puller Name Role Phone ThangKendrickDiana T [facility] Unavailable Rain Galaviz-C Unavailable Tavia Wyatt MD Unavailable Unavailable Erica Farrell APRN EMT B Unavailable Rich Barrett MD Unavailable Neil Kent MD Unavailable Diana Desir [facility] Unavailable [phone] Livan Sharif MD Unavailable Catherine Cm MD Unavailable + Valery Veronica PA-C Unavailable [phone] Brea Quinn FILM SORTER EMT B Unavailable Brea Quinn FILM SORTER EMT B Unavailable Jose Francisco Johnson MD Unavailable Alfonso Renteria MD Unavailable + [phone] Esha Grimm PA-C Primary Care Provider [phone] Radha Lomeli FILM SORTER EMT B Unavailable FrankieJelena OD Unavailable Pao Joseph RN Unavailable Unavailable Esha Grimm PA-C Unavailable [phone] Valery Veronica PA-C Unavailable Rey Tay MD Unavailable Rocky Zepeda DO Unavailable Philip Dumont MD Unavailable [phone] Reason for Visit * Reason Onset Date Comments Appointment 10/03/2023 New Esophageal P t Encounter Details Date Type Department Care Team ([facility] st Contact Info) Description 10/03/2023 Telephone [facility] [place] [id number] [facility] 4th [place] [address] Rocky Zepeda DO 500 [place] [address] Appointment (New Esophageal Pt) Social History Tobacco Use Types Packs/Day Years [...] often do you attend chur ch or uatsdin services? 1 to 4 times per year 03/10/2023 Do you belong to any clubs o r organizations such as jainism groups, unions, fraternal or athletic groups, [...] Answer Date Recorded PHQ-2 Score 0 06/20/2023 [facility] - Occupational Stress Questionnaire Answer Date [...] exercise at this level? 30 min 03/10/2023 [place] Depression Scale Answer Date Recorded [place] Depression Score 5 01/14/2021 Last EPDS Self [...] * Telephone Encounter - Richar Schafer - 10/04/2023 9:19 AM CDT Knife Changer called to offer Pt a sooner appointment with Meredith Carrera, in-person. Pt accepted an appointment with Meredith Carrera on 10/06/2023 at 7:30 Am. * Telephone Encounter - Richar Schafer - 10/03/2023 1:44 PM CDT Knife Changer received a message from VJ Yun to help get Pt scheduled for a sooner appointment with or Meredith Carrera. This is a new Pt. Knife Changer called and talked with Pt. Knife Changer tried to offer sooner appointments with Meredith Carrera virtually but Pt declined. Pt told Knife Changer that per Pt's conversation with the nurse (Jessa Yun), Pt needed to be seen in person. Knife Changer informed Pt that Knife Changer will connect back with the clinic and reach back out to the Pt some time this week. Pt expressed understanding of the plan. documented in this encounter Plan of Treatment Upcoming Encounters Date Type Department Care Team (Late st Contact Info) Description 10/25/2023 11:30 AM CDT Virtual Visit [facility] [address] [phone] Nelly Mesa, RD 909 [place] [address] 11/03/2023 8:00 AM CDT Office Visit [facility] 830 [place] [phone] Valery Veronica PA-C 909 [place] [address] 11/29/2023 8:00 AM CDT Office Visit [facility] [address] [place] [address] Esha Grimm PA-C [address] [place] [address] 01/02/2024 8:00 AM CDT Office Visit [facility] [address] [place] [phone] Lauren Claudio PA-C [address] [place], [place] [phone] Kelli Perez MD 606 [facility] 106 [place], [place] [phone] documented as of this encounter Visit Diagnoses Not on filedocumented in this encounter Additional Health Concerns Assessment Noted Time PHQ-9 Depression Total Score: 4 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 documented as of this encounter Care Teams Ladle Puller Relationship Specialty Start Date End Date Esha Grimm PA-C [id number] [place] [phone] PCP - General Family Medicine 05/04/23 Diana Desir, [facility] [address] [place] [address] Pharmacist Pharmacist 04/17/21 Rain Galaviz PA-C [address] [place] [address] [address] [place] [address] Physician Retort Kiln Burner Dermatology 04/28/21 Tavia Wyatt MD [address] [place] [address] [address] [place] [address] Dermatology 07/14/21 Erica Farrell APRN EMT B [address] [place] [address] Nurse Practitioner Cardiovascular Disease 09/09/21 Rich Barrett MD [address] [place] [address], [facility] 9A [place], [place] 4[address]65 Physician Ophthalmology 01/21/22 Neil Kent MD 500 [place] [address] Dermatology 02/24/22 Diana Desir, [facility] 3033 [place] [address] Assigned MTM Pharmacist 04/07/22 Livan Sharif MD [address], [address] [place] [address] Cardiovascular Disease 05/14/22 Catherine Cm MD 6407 [facility] [address] [place] [address] Cardiovascular Disease 07/21/22 Valery Veronica PA-C 909 [place] [address] Physician Retort Kiln Burner Dermatology 07/21/22 Brea Quinn APRN EMT B 500 [place] [address] Nurse Practitioner Dermatology 09/21/22 Brea Quinn APRN EMT B 6401 [place] [address] Assigned Surgical Provider 10/09/22 [place] [address] [facility] 300 [place] [address] Assigned Musculoskeletal Provider 10/09/22 Alfonso Renteria MD 5775 [facility] 200 [place], [place] 2[address]86 Assigned Neuroscience Provider 04/02/23 Radha Lomeli APRN EMT B 6405 [facility] [address] [place] [address] Assigned Heart and Vascular Provider 05/28/23 Jelena David OD [address] [facility] [place] [address] Ophthalmology 06/15/23 Pao Joseph, VJ Personal Advocate & Liaison (PAL) Nurse 08/01/23 Esha Grimm PA-C [address] [place] [address] Assigned PCP 07/16/23 Valery Veronica PA-C 909 [place] [address] Physician Retort Kiln Burner Dermatology 09/19/23 Rey Tay MD [address] [place] [address] Gastroenterology 09/20/23 Rocky Zepeda DO [address] [place] [address] Physician Gastroenterology 09/20/23 Philip Dumont MD [address] [place] [address] Physician Ophthalmology 09/22/23 documented as of this encounter
--- OUTSIDE RECORDS SUMMARY | 2023-10-15 21:48 | XMS_ITS | Encounter Summary ---
Author Name Unknown Organization [facility] Address [address] [place] [address] Care Team Providers Care Chief Supply Chain Officer Name Role Phone ThangKendrickDiana T [facility] Unavailable Rain Galaviz-C Unavailable Tavia Wyatt MD Unavailable Unavailable Erica Farrell APRN RESEARCH ASSOCIATE PROFESSOR Unavailable Rich Barrett MD Unavailable Neil Kent MD Unavailable Diana Desir [facility] Unavailable [phone] Livan Sharif MD Unavailable Catherine Cm MD Unavailable + Valery Veronica PA-C Unavailable [phone] Brea Quinn ENGINE LATHE SET UP OPERATOR RESEARCH ASSOCIATE PROFESSOR Unavailable Brea Quinn ENGINE LATHE SET UP OPERATOR RESEARCH ASSOCIATE PROFESSOR Unavailable Jose Francisco Johnson MD Unavailable Alfonso Renteria MD Unavailable + [phone] Esha Grimm PA-C Primary Care Provider [phone] Radha Lomeli ENGINE LATHE SET UP OPERATOR RESEARCH ASSOCIATE PROFESSOR Unavailable FrankieJelena OD Unavailable Pao Joseph RN Unavailable Unavailable Esha Grimm PA-C Unavailable [phone] Valery Veronica PA-C Unavailable [phone] Rey Tay MD Unavailable Rocky Zepeda DO Unavailable Philip Dumont MD Unavailable [phone] Reason for Visit * Reason Onset Date Comments Call Back 09/29/2023 Discuss being se en sooner (increased issues with swallowing) Encounter Details Date Type Department Care Team (Late st Contact Info) Description 09/29/2023 Telephone [facility] [place] [address] [facility] [address] [place] [address] Rocky Zepeda DO [address] [place] [address] Call Back (Discuss being seen sooner (increased issues with swallowing) ) Social History Tobacco Use Types Packs/Day Years [...] often do you attend chur ch or jainism services? 1 to 4 times per year 03/10/2023 Do you belong to any clubs o r organizations such as pentecostalism groups, unions, fraternal or athletic groups, [...] Answer Date Recorded PHQ-2 Score 0 06/20/2023 [facility] - Occupational Stress Questionnaire Answer Date Recorded [...] encounter Miscellaneous Notes * Telephone Encounter - Jessa Castillo RN - 09/30/2023 3:07 PM CDT Returned pt call and left detailed vm. Bean Snipper messaged regarding getting pt in sooner to esophageal clinic for confirmed EoE with symptoms. * Telephone Encounter - Barbara Ayers - 09/29/2023 1:25 PM CDT [facility] Phone Message May a detailed message be left on voicemail: yes Reason for Call: Other: Pt is requesting a call back please to discuss being seen sooner then the first available visit. Pt states she is having increased issues swallowing and would also like to discuss if she should be seen with an bulk plant operator. Please reach out to discuss. Thank you! Action Taken: Message routed to: [facility] GI Travel Screening: Not Applicable documented in this encounter Plan of Treatment Upcoming Encounters Date Type Department Care Team (Late st Contact Info) Description 10/25/2023 11:30 AM CDT Virtual Visit [facility] [address] [place] [address] Nelly Mesa, RD 909 [place] [address] 11/03/2023 8:00 AM CDT Office Visit [facility] 830 [place] [address] Valery Veronica PA-C 9 [place] [address] 11/29/2023 8:00 AM CDT Office Visit [facility] [address] [place] [address] Esha Grimm PA-C [id number] [place] [address] 01/02/2024 8:00 AM CDT Office Visit [facility] [address] [place] [phone] Lauren Claudio PA-C [address] [place] [address] Kelli Perez MD [address] [facility] 106 [place], [place] [phone] documented as of this encounter Visit Diagnoses Not on filedocumented in this encounter Additional Health Concerns Assessment Noted Time PHQ-9 Depression Total Score: 4 06/20/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 documented as of this encounter Care Teams Chief Supply Chain Officer Relationship Specialty Start Date End Date Esha Grimm PA-C [id number] [place] [address] PCP - General Family Medicine 05/04/23 Diana Desir, [facility] [address] [place] [address] Pharmacist Pharmacist 04/17/21 Rain Galaviz PA-C [address] [place] [address] [address] [place] [address] Physician Wash Oil Pump Operator Helper Dermatology 04/28/21 Tavia Wyatt MD [address] [place] [address] [address] [facility] [facility] [address] Dermatology 07/14/21 Erica Farrell APRN RESEARCH ASSOCIATE PROFESSOR [address] [place] 700035 Nurse Practitioner Cardiovascular Disease 09/09/21 Rich Barrett MD [address] [place] [address] [address] [place], [place] 985755 Physician Ophthalmology 01/21/22 Neil Kent MD [address] [place] [address] Dermatology 02/24/22 Diana Desir, [facility] [address] [place] [address] Assigned MTM Pharmacist 04/07/22 Livan Sharif MD [address] [place] 580585 Cardiovascular Disease 05/14/22 Catherine Cm MD [address] [place] 606665 Cardiovascular Disease 07/21/22 Valery Veronica PA-C 909 [place], [place] 549375 Physician Wash Oil Pump Operator Helper Dermatology 07/21/22 Brea Quinn APRN RESEARCH ASSOCIATE PROFESSOR 500 [place], [place] [address] Nurse Practitioner Dermatology 09/21/22 Brea Quinn APRN RESEARCH ASSOCIATE PROFESSOR 6401 [place], [place] 352122 Assigned Surgical Provider 10/09/22 [place] [address] [place] [address] 440227 Assigned Musculoskeletal Provider 10/09/22 Alfonso Renteria MD 5775 [facility] 200 [place], [place] [id number] Assigned Neuroscience Provider 04/02/23 Radha Lomeli APRN RESEARCH ASSOCIATE PROFESSOR 6405 [facility] [address] [place], [place] 738535 Assigned Heart and Vascular Provider 05/28/23 Jelena David OD [address] [facility] [address] [place] [phone] Ophthalmology 06/15/23 Pao Joseph, VJ Personal Advocate & Liaison (PAL) Nurse 08/01/23 Esha Grimm PA-C [address] [place] [address] Assigned PCP 07/16/23 Valery Veronica PA-C 9 [place], [place] 266725 Physician Wash Oil Pump Operator Helper Dermatology 09/19/23 Rey Tay MD [address] [place] [address] 878195 Gastroenterology 09/20/23 Rocky Zepeda DO [address] [place] [address] Physician Gastroenterology 09/20/23 Philip Dumont MD [address] [place] [address] [id number] Physician Ophthalmology 09/22/23 documented as of this encounter
--- OUTSIDE RECORDS SUMMARY | 2023-10-15 21:48 | XMS_ITS | Encounter Summary ---
Author Name Unknown Organization [facility] Address [address] [place] [address] Care Team Providers Care Paper Coater Name Role Phone ThangKendrickDiana T [facility] Unavailable [phone] Rain Galaviz-C Unavailable Tavia Wyatt MD Unavailable Unavailable Erica Farrell APRN TRADE SHOW SPECIALIST Unavailable Rich Barrett MD Unavailable Neil Kent MD Unavailable Diana Desir [facility] Unavailable [phone] Livan Sharif MD Unavailable Catherine mC MD Unavailable + Valery Veronica PA-C Unavailable [phone] Brea Quinn BRONZE CHASER TRADE SHOW SPECIALIST Unavailable Brea Quinn BRONZE CHASER TRADE SHOW SPECIALIST Unavailable Jose Francisco Johnson MD Unavailable Alfonso Renteria MD Unavailable + [phone] Esha Grimm PA-C Primary Care Provider [phone] Radha Lomeli BRONZE CHASER TRADE SHOW SPECIALIST Unavailable FrankieJelena OD Unavailable Pao Joseph RN Unavailable Unavailable Esha Grimm PA-C Unavailable [phone] Valery Veronica PA-C Unavailable [phone] Rey Tay MD Unavailable ZepedaRocky Unavailable Philip Dumont MD Unavailable [phone] Encounter Details Date Type Department Care Team (Latest Contact Info) Description 09/28/2023 Travel Social History Tobacco Use Types Packs/Day [...] week 03/10/2023 How often do you attend [facility] or hindu services? 1 to 4 times per year 03/10/2023 Do you belong to any clubs o r organizations such as congregational groups, unions, fraternal or athletic groups, [...] Answer Date Recorded PHQ-2 Score 0 06/20/2023 [facility] - Occupational [...] exercise at this level? 30 min 03/10/2023 [place] Depression Scale Answer Date Recorded [place] Depression Score 5 01/14/2021 Last EPDS Self [...] Description 10/25/2023 11:30 AM CDT Virtual Visit [facility] [address] [place] [phone] Nelly Mesa, RD [address] [place] [address] 11/03/2023 8:00 AM CDT Office Visit [address] [phone] Valery Veronica PA-C [address] [place] [address] 11/29/2023 8:00 AM CDT Office Visit [facility] [address] [place] [phone] Esha Grimm PA-C [address] [place] [phone] 01/02/2024 8:00 AM CDT Office Visit [facility] [address] [place] [phone] Lauren Claudio PA-C [address] [place], [place] [phone] Kelli Perez MD [address] 700134 documented as of this encounter Visit Diagnoses Not on filedocumented in this encounter Additional Health Concerns Assessment Noted Time PHQ-9 Depression Total Score: 4 06/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 documented as of this encounter Care Teams Paper Coater Relationship Specialty Start Date End Date Esha Grimm PA-C [address] [place] [address] PCP - General Family Medicine 05/04/23 Diana Desir, [facility] [place] [address] Pharmacist Pharmacist 04/17/21 Rain Galaviz PA-C [address] [place] [address] [address] [facility] [facility] [place] [address] Physician Credit Card Analyst Dermatology 04/28/21 Tavia Wyatt MD [address] [place] [address] [address] [place] [address] Dermatology 07/14/21 Erica Farrell APRN TRADE SHOW SPECIALIST 6405 [facility] [address] [place] [address] Nurse Practitioner Cardiovascular Disease 09/09/21 Rich Barrett MD [address] 171865 Physician Ophthalmology 01/21/22 Neil Kent MD [address] [place] [address] 741125 Dermatology 02/24/22 Diana Desir, [facility] [place] [address] Assigned MTM Pharmacist 04/07/22 Livan Sharif MD [address] [facility] [address] [place], [place] 4595[address] Cardiovascular Disease 05/14/22 Catherine Cm MD [address] [facility] [address] [place] 739695 Cardiovascular Disease 07/21/22 Valery Veronica, PAUcheC [address] [place] [address] 498525 Physician Credit Card Analyst Dermatology 07/21/22 Brea Quinn APRN TRADE SHOW SPECIALIST [address] [place] [address] 821335 Nurse Practitioner Dermatology 09/21/22 Brea Quinn APRN TRADE SHOW SPECIALIST [facility]1 [place], [place] 601622 Assigned Surgical Provider 10/09/22 [place] [address] 326387 Assigned Musculoskeletal Provider 10/09/22 Alfonso Renteria MD [address] [facility] 200 [place], [place] [phone] Assigned Neuroscience Provider 04/02/23 Radha Lomeli APRN TRADE SHOW SPECIALIST [address] [place] 017495 Assigned Heart and Vascular Provider 05/28/23 Jelena David OD [address] [facility] [place] [address] Ophthalmology 06/15/23 Pao Joseph, RN Personal Advocate & Liaison (PAL) Nurse 08/01/23 Esha Grimm PA-C [address] [place] [address] Assigned PCP 07/16/23 Valery Veronica PA-C [address] [place] [address] Physician Credit Card Analyst Dermatology 09/19/23 Rey Tay MD [address] [place] [address] MD Gastroenterology 09/20/23 Rocky Zepeda DO [address] [place] [address] 804925 Physician Gastroenterology 09/20/23 Philip Dumont MD [address] [place] [address] 772705 Physician Ophthalmology 09/22/23 documented as of this encounter
--- OUTSIDE RECORDS SUMMARY | 2023-10-15 21:48 | XMS_ITS | Encounter Summary ---
Author Name Unknown Organization [facility] Address [address] [place] [address] Care Team Providers Care Cutting Tool Sharpener Name Role Phone ThangKendrickDiana T [facility] Unavailable Rain Galaviz-C Unavailable Tavia Wyatt MD Unavailable Unavailable Erica Farrell APRN INSTRUCTOR MILITARY SCIENCE Unavailable Rich Barrett MD Unavailable Neil Kent MD Unavailable Diana Desir [facility] Unavailable [phone] Livan Sharif MD Unavailable Catherine Cm MD Unavailable + Valery Veronica PA-C Unavailable [phone] Brea Quinn CONSERVATION AGENT INSTRUCTOR MILITARY SCIENCE Unavailable Brea Quinn CONSERVATION AGENT INSTRUCTOR MILITARY SCIENCE Unavailable [phone] Jose Francisco Johnson MD Unavailable Alfonso Renteria MD Unavailable + [phone] Esha Grimm PA-C Primary Care Provider [phone] Radha Lomeli CONSERVATION AGENT INSTRUCTOR MILITARY SCIENCE Unavailable FrankieJelena OD Unavailable Pao Joseph RN Unavailable Unavailable Esha Grimm PA-C Unavailable [phone] Valery Veronica PA-C Unavailable [phone] Rey Tay MD Unavailable Rocky Zepeda Unavailable Reason for Visit * Reason Onset Date Comments Refill Request 09/21/2023 Encounter Details Date Type Department Care Team (Late st Contact Info) Description 09/21/2023 [facility] [address] [place] [address] Esha Grimm PA-C [id number] [place] [address] Refill Request Social History Tobacco Use Types Packs/Day Years [...] How often do you attend chur or roman catholic services? 1 to 4 times per year 03/10/2023 Do you belong to any clubs o r organizations such as synagogue groups, unions, fraternal or athletic groups, [...] Date Recorded PHQ-2 Score 0 06/20/2023 [facility] - Occupational Stress Questionnaire Answer Date [...] exercise at this level? 30 min 03/10/2023 [place] Depression Scale Answer Date Recorded [place] Depression Score 5 01/14/2021 Last EPDS Self [...] encounter Miscellaneous Notes * Telephone Encounter - Esha Grimm PA-C - 09/21/2023 10:16 AM CDT Refilled medication. Esha Grimm PA-C on 09/21/2023 at 10:16 AM documented in this encounter Plan of Treatment Upcoming Encounters Date Type Department Care Team (Late st Contact Info) Description 10/25/2023 11:30 AM CDT Virtual Visit [facility] [address] [place] [phone] [address], RD [address] [place] [address] 11/03/2023 8:00 AM CDT Office Visit [address] [phone] Valery Veronica PA-C [address] [place] [address] 071675 11/29/2023 8:00 AM CDT Office Visit [facility] [address] [place] [address] Esha Grimm PA-C [address] [place] [phone] 01/02/2024 8:00 AM CDT Office Visit [facility] [address] [place] [phone] Lauren Claudio PA-C [address] [place], [place] [phone] Kelli Perez MD [address] [place], [place] 318724 documented as of this encounter Visit Diagnoses Diagnosis Anxiety- Primary Anxiety state, unspecified documented in this encounter Additional Health Concerns Assessment Noted Time PHQ-9 Depression Total Score: 4 06/20/20 23 8:40 AM PERMANENT WAVER documented as of this encounter Care Teams Cutting Tool Sharpener Relationship Specialty Start Date End Date Esha Grimm PA-C [address] [place] [phone] PCP - General Family Medicine 05/04/23 Diana Desir, [facility] 3033 [place] [address] Pharmacist Pharmacist 04/17/21 Rain Galaviz PA-C [address] [place] [address] [address] [place] [address] Physician Respiratory Services Manager Dermatology 04/28/21 Tavia Wyatt MD [address] [place] [address] [address] [place] [address] Dermatology 07/14/21 Erica Farrell APRN INSTRUCTOR MILITARY SCIENCE 6405 [facility] [address] [place] 233875 Nurse Practitioner Cardiovascular Disease 09/09/21 Rich Barrett MD 516 [facility] 9A [place], [place] 413615 Physician Ophthalmology 01/21/22 Neil Kent MD 500 [place], [place] 667475 Dermatology 02/24/22 Diana Desir, [facility] 3033 [place], [place] 384036 Assigned [place] Pharmacist 04/07/22 Livan Sharif MD [address] [facility]00 [place], [place] 466605 Cardiovascular Disease 05/14/22 Catherine Cm MD [address] 416525 Cardiovascular Disease 07/21/22 Valery Veronica, PA-C 909 [place], [place] 696015 Physician Respiratory Services Manager Dermatology 07/21/22 Brea Quinn APRN INSTRUCTOR MILITARY SCIENCE 500 [place], [place] 541095 Nurse Practitioner Dermatology 09/21/22 Brea Quinn APRN INSTRUCTOR MILITARY SCIENCE 6401 [facility] 752992 Assigned Surgical Provider 10/09/22 [place] [address] [facility] 300 [place] [address] Assigned Musculoskeletal Provider 10/09/22 Alfonso Renteria MD [address] [facility] 200 [place], [place] [address]26 Assigned Neuroscience Provider 04/02/23 Radha Lomeli APRN INSTRUCTOR MILITARY SCIENCE 6405 [facility] [address]200 [place], [place] 625465 Assigned Heart and Vascular Provider 05/28/23 Jelena David OD [address] [facility] [address] [place] [id number] Ophthalmology 06/15/23 Pao Joseph, RN Personal Advocate & Liaison (PAL) Nurse 08/01/23 Esha Grimm PA-C [address] [place] [phone] Assigned PCP 07/16/23 Valery Veronica PA-C [address] [place] [address] 327805 Physician Respiratory Services Manager Dermatology 09/19/23 Rey Tay MD [address] [place] [address] [phone] Gastroenterology 09/20/23 Rocky Zepeda DO [address] [place] [address] 010985 Physician Gastroenterology 09/20/23 documented as of this encounter
--- OUTSIDE RECORDS SUMMARY | 2023-10-15 21:48 | XMS_ITS | Encounter Summary ---
Author Name Unknown Organization [facility] Address [address] [place] [address] Care Team Providers Care Electronic Scanner Operator Name Role Phone ThangKendrickDiana T [facility] Unavailable Rain Galaviz-C Unavailable Tavia Wyatt MD Unavailable Unavailable Erica Farrell APRN BISQUE FINISHER Unavailable Rich Barrett MD Unavailable Neil Kent MD Unavailable Diana Desir [facility] Unavailable [phone] Livan Sharif MD Unavailable Catherine Cm MD Unavailable + Valery Veronica PA-C Unavailable [phone] Brea Quinn DIRECTOR OF HOUSING BISQUE FINISHER Unavailable Brea Quinn DIRECTOR OF HOUSING BISQUE FINISHER Unavailable Jose Francisco Johnson MD Unavailable Alfonso Renteria MD Unavailable + [phone] Esha Grimm PA-C Primary Care Provider [phone] Radha Lomeli DIRECTOR OF HOUSING BISQUE FINISHER Unavailable Jelena David OD Unavailable [phone] Pao Joseph RN Unavailable Unavailable Esha Grimm PA-C Unavailable [phone] Reason for Visit * Auth/Cert (Routine) Specialty Diagnoses / Procedures Referred By Contparviz t Referred To Contact Gastroenterology Diagnoses Bloating Dysphagia, unspecified type Bloating [R14.0] Dysphagia, unspecified type [R13.10] Procedures CA UGI ENDOSCOPY DIAG W OR W/O BRUSH/WASH Esophagoscopy, gastroscopy, duodenoscopy (EGD), combined Endoscopy [address] [address] Referral ID Status Reason Start Date Expiration Date Visits Re quested Visits Authorized [id number] 1 1 Encounter Details Date Type Department Care Team (Late st Contact Info) Description 09/12/2023 1:15 PM LABOR ECONOMIST - 09/12/2023 1:45 PM LABOR ECONOMIST Surgery [facility] Endoscopy [address] [address] Tyshawn Sprague MD [address] [place] [address] Esophagoscopy, gastroscopy, duodenoscopy (EGD), combined Surgery Details Date/Time Status Location OR Service Patient Class Case Class Case Type Trauma Case? 09/12/23 1:15 PM Posted GI GI 03 Gastroenterology Outpatient Elective Panel 1 Procedure LRB Anes Op Region Wound Class Comments Esophagoscopy, gastroscopy, duodenoscopy (EGD), combined N/A Moderate Sedation Esophagus II-Clean Contaminated Surgeon Surgeon Role Service Panel Tyshawn Sprague MD Primary Gastroenterology 1 documented in this encounter Social History [...] How often do you attend chur or congregational services? 1 to 4 times per year 03/10/2023 Do you belong to any clubs o r organizations such as buddhist groups, unions, fraternal or athletic groups, [...] exercise at this level? 30 min 03/10/2023 Poteau Depression Scale Answer Date Recorded [place] Depression Score 5 01/14/2021 Last EPDS Self [...] Reading Time Taken Comments Blood Pressure 116/71 09/12/2023 1:40 PM LABOR ECONOMIST Pulse 69 09/12/2023 1:45 PM LABOR ECONOMIST Temperature - - Respiratory Rate 23 09/12/2023 1:45 PM LABOR ECONOMIST Oxygen Saturation 97% 09/12/2023 1:45 PM LABOR ECONOMIST Inhaled Oxygen Concentration - - Weight - - Height - - Body Mass Index - - documented in this encounter Medications at Time of Discharge Medication Sig Dispensed Refills Start Date End Date clindamycin (CLEOCIN T) 1 % external lotionIndications:Acn e, unspecified acne type Apply topically 2 times daily 60 mL 1 09/01/2023 ketoconazole (NIZORAL) 2 % external shampooIndications:Ps oriasis Use every 1-2 days when flared. Leave in few minutes before rinsing. Use twice weekly to prevent flares. 120 mL 11 10/01/2022 levonorgestrel (MIRENA) 52 MG (20 mcg/day) IUD by Intrauterine route once 0 Lidocaine (LIDOCARE) 4 % PatchIndications:Acut e left-sided low back pain with left-sided sciatica,Sacroiliac joint pain,Neck pain Place 1 patch onto the skin every 24 hours To prevent lidocaine toxicity, patient should be patch free for 12 hrs daily. 30 patch 1 10/11/2022 LORazepam (ATIVAN) 0.5 MG tabletIndications:Anx iety Take 1 tablet (0.5 mg) by mouth daily as needed for anxiety 30 tablet 0 07/28/2023 metoprolol succinate ER (TOPROL XL) 25 MG 24 hr tabletIndications:Pal pitations Take 0.5 tablets (12.5 mg) by mouth daily 45 tablet 1 05/25/2023 tacrolimus (PROTOPIC) 0.1 % external ointmentIndications:P soriasis Apply thin layer to psoriasis on thinner skin of face/genitals up to twice daily as needed. 60 g 11 10/01/2022 tretinoin (RETIN-A) 0.05 % external creamIndications:Acne , unspecified acne type Apply topically at bedtime 45 g 0 09/01/2023 triamcinolone (KENALOG) 0.1 % external ointmentIndications:P soriasis Apply topically 2 times daily To psoriasis on body or arms/legs until healed then stop 80 g 2 10/01/2022 omeprazole (PRILOSEC) [address] capsuleIndications:Ep igastric pain Take 1 capsule (40 mg) by mouth daily 90 capsule 3 09/07/2022 09/16/2023 PARoxetine (PAXIL) 40 MG tablet Take 40 mg by mouth every morning 0 09/21/2023 documented as of this encounter H&P Notes * Tyshawn Sprague MD - 09/12/2023 1:07 PM CST Kim Adam Johnson [id number] female 23 year old Reason for procedure/surgery: gerd Patient Active Problem List Diagnosis Seizure (H) Depressed Anxiety Tobacco abuse counseling Psoriasis Head ache Right ureteral stone Left ureteral stone Asthma KALYN (generalized anxiety disorder) Moderate major depression (H) Encounter for pharmacogenetic testing 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) Paroxysmal supraventricular tachycardia SVT (supraventricular tachycardia) Past Surgical History: Past Surgical History: Procedure Laterality Date EP ABLATION SVT N/A 08/28/2021 Procedure: EP Ablation SVT; Surgeon: Galo Burrell MD; Location: HEART CARDIAC DIRECTORY OPERATOR ESOPHAGOSCOPY, GASTROSCOPY, DUODENOSCOPY (EGD), COMBINED N/A 06/26/2021 Procedure: ESOPHAGOGASTRODUODENOSCOPY (EGD) (fv); Surgeon: Tyshawn Sheppard MD; Location: GI GENITOURINARY SURGERY kidney Past Medical History: Past Medical History: Diagnosis Date Anxiety Chronic kidney disease stones, history of infections Depressive disorder Gastroesophageal reflux disease Psoriasis Seizure (H) 05/02/2019 no seizure since approx 2018 SVT (supraventricular tachycardia) Social History: Social History Tobacco Use Smoking status: Former Packs/day: 1 Types: Other, Cigarettes Quit date: 12/07/2019 Years since quittin.7 Passive exposure: Past Smokeless tobacco: Never Substance Use Topics Alcohol use: Not Currently Comment: social Family History: Family History Problem Relation Age of Onset Heart Disease Maternal Grandfather Brain Tumor Sister Macular Degeneration No family hx of Glaucoma No family hx of Allergies: Allergies Allergen Reactions Vancomycin Active Medications: No current outpatient medications on file. Systemic Review: CONSTITUTIONAL: NEGATIVE for fever, chills, change in weight ENT/MOUTH: NEGATIVE for ear, mouth and throat problems RESP: NEGATIVE for significant cough or SOB CV: NEGATIVE for chest pain, palpitations or peripheral edema Physical Examination: Vital Signs: BP 116/77 Pulse 81 Resp 16 GENERAL: healthy, alert and no distress NECK: no adenopathy, no asymmetry, masses, or scars RESP: lungs clear to auscultation - no rales, rhonchi or wheezes CV: regular rate and rhythm, normal S1 S2, no S3 or S4, no murmur, click or rub, no peripheral edema and peripheral pulses strong ABDOMEN: soft, nontender, no hepatosplenomegaly, no masses and bowel sounds normal MS: no gross musculoskeletal defects noted, no edema ASA: 2 Mallampati Score: 2 Plan: Appropriate to proceed as scheduled. Tyshawn Sprague MD 09/12/2023 PCP: Esha Grimm R ECONOMIST documented in this encounter Plan of Treatment Upcoming Encounters Date Type Department Care Team (Late st Contact Info) Description 10/25/2023 11:30 AM CDT Virtual Visit [facility] [address] [place] [phone] [address], RD [address] [place] [address] 11/03/2023 8:00 AM CDT Office Visit [address] [phone] Valery Veronica PA-C [address] [place] [address] 11/29/2023 8:00 AM CDT Office Visit [facility] [id number] [place] [phone] Esha Grimm PA-C [address] [place] [address] 01/02/2024 8:00 AM CDT Office Visit [facility] Sleep [facility] [address] [place] [phone] See Claudio PA-C [address] [place], [place] [phone] Kelli Perez MD [address] [place] [address]014 documented as of this encounter Procedures Procedure Name Priority Date/Time Associated Diagnosis Comments SURGICAL PATHOLOGY EXAM Routine 09/12/2023 1:41 PM LABOR ECONOMIST ESOPHAGOGASTRODUODE NOSCOPY, WITH BIOPSY 09/12/2023 1:10 PM LABOR ECONOMIST Bloating Dysphagia, unspecified type UPPER GI ENDOSCOPY Routine 09/12/2023 1: 02 PM LABOR ECONOMIST documented in this encounter Results * Surgical Pathology Exam (09/12/2023 1:41 PM LABOR ECONOMIST) Case Report Surgical Pathology Report ? Case: [id number] ? Authorizing Provider: ??Tyshawn Sprague MD ?Collected: ? 09/12/2023 01:41 PM ? Ordering Location: ? [facility] ?Received: ?09/12/2023 03:09 PM ? [facility] ? Pathologist: ? Lázaro Jordan MD ? Specimens: ?? A) - Small Intestine, Duodenum, gastric evaluate for H. pylori ? B) - Esophagus, Distal, evaluate for eosinophilic esophagitis ? C) - Esophagus, Proximal, evaluate for eosinophilic esophagitis ? 09/14/2023 7:16 AM [facility] Final Diagnosis A(1). Stomach, [...] for dysplasia or malignancy 09/14/2023 7:16 AM [facility] Comment Prominent intra-epithelial eosinophilia (approximately 40 eosinophils per high-power field in the distal esophagus, and 25 eosinophils per high-power field in the proximal esophagus) is identified. In the appropriate clinical and endoscopic setting, findings are compatible with eosinophilic esophagitis. 09/14/2023 7:16 AM [facility] Clinical Information Procedure: Esophagoscopy, gastroscopy, duodenoscopy (EGD), combined Pre-op Diagnosis: Bloating [R14.0] Dysphagia, unspecified type [R13.10] Post-op Diagnosis: R14.0 - Bloating [ICD-10-CM] R13.10 - Dysphagia, unspecified type [ICD-10-CM] 09/14/2023 7:16 AM [facility] Gross Description A(1). Small Intestine, Duodenum, [...] (Margret David Biopsy Tech) 09/14/2023 7:16 AM LABOR ECONOMIST LABORATORY Microscopic Description Microscopic examination was performed. 09/14/2023 7:16 AM LABOR ECONOMIST LABORATORY Performing Labs The technical component of this testing was completed at [facility] 09/14/2023 7:16 AM LABOR ECONOMIST LABORATORY Case Images 09/14/2023 7:16 AM LABOR ECONOMIST LABORATORY Biopsy DUODENAL STRUCTURE / Unknown 09/12/2023 1:41 PM LABOR ECONOMIST 09/12/2023 3:09 PM LABOR ECONOMIST Specimen from unspecified body site obtained by biopsy (specimen) STRUCTURE OF LOWER THIRD OF ESOPHAGUS / Unknown 09/12/2023 1:42 PM LABOR ECONOMIST 09/12/2023 3:09 PM LABOR ECONOMIST Specimen from unspecified body site obtained by biopsy (specimen) STRUCTURE OF UPPER THIRD OF ESOPHAGUS / Unknown 09/12/2023 1:44 PM LABOR ECONOMIST 09/12/2023 3:09 PM LABOR ECONOMIST Tyshawn [facility] [address] [facility] (1st floor, no room number) [place] [address], [place] [phone] [facility] [address] 1st floor, Room [address] [place] [address], [place] [phone] * UPPER GI ENDOSCOPY (09/12/2023 1:02 PM LABOR ECONOMIST) Upper GI Endoscopy [facility] [address] ??[id number] ___ Patient Name: Kim Johnson ?Procedure Date: 09/12/2023 1:02 PM ? Date of : 2000 ? Admit Type: Outpatient Age: 23 ? Room: [place] [address] Note Status: Finalized ?Attending MD: TYSHAWN SPRAGUE MD, Instrument Name: 505 [id number] Gastroscope ___ Procedure: ?Upper GI endoscopy Indications: ?Follow-up of gastro-esophageal reflux disease, ?Unexplained chest pain Providers: ?TYSHAWN SPRAGUE MD, Jess Bucio RN Referring MD: ? SEE CLAUDIO Medicines: ?Midazolam [...] Procedure Code(s): ? --- Professional --- ? 84236, Esophagogastroduode noscopy, flexible, transoral; with biopsy, ? single or multiple Diagnosis Code(s): ? --- Professional --- ? K22.89, Other specified disease of esophagus ? K44.9, Diaphragmatic hernia without obstruction or gangrene ? K29.70, Gastritis, unspecified, without bleeding ? K21.9, Gastro-esophageal reflux disease without esophagitis ? R07.9, Chest pain, unspecified CPT copyright 2021 [employer]. All rights reserved. The codes documented in this report are preliminary and upon ordnance artificer review may be revised to meet current [...] 1:36:53 PM RADIOLOGY RESULTS 09/12/2023 1:02 PM LABOR ECONOMIST See Claudio PA-C PROCEDURES RADIOLOGY RESULTS documented in this encounter Visit Diagnoses Diagnosis Bloating Flatulence, eructation, and gas pain Dysphagia, unspecified type documented in this encounter Administered Medications Inactive Administered Medications - up to 3 most recent administrations Medication Order MAR Action Action Date Dose Rate Site fentaNYL (PF) (SUBLIMAZE) injection Intravenous, PRN, Administer over 3-5 Minutes, Starting on Tue09/12/23 at 1326, Intra-procedure $Given 09/12/2023 1:26 PM LABOR ECONOMIST 100 mcg midazolam (VERSED) injection Intravenous, Administer over 2 Minutes, PRN, Starting on Tue09/12/23 at 1326, Intra-procedure $Given 09/12/2023 1:28 PM LABOR ECONOMIST 2 mg $Given 09/12/2023 1:26 PM LABOR ECONOMIST 2 mg documented in this encounter Active and Recently Administered Medications Times are shown in LABOR ECONOMIST. PRN Medication Order 09/10/2023 09/11/2023 09/12/2023 fentaNYL (PF) (SUBLIMAZE) injection Intravenous, PRN, Administer over 3-5 Minutes, Starting on Tue09/12/23 at 1326, Intra-procedure 1326 ($Given - Provi lynn: Jess Bucio RN) midazolam (VERSED) injection Intravenous, Administer over 2 Minutes, PRN, Starting on Tue09/12/23 at 1326, Intra-procedure 1326 ($Given - Provi lynn: Jess Bucio RN)1328 ($Given - Provider: Jess Bucio RN) documented in this encounter Additional Health Concerns Assessment Noted Time PHQ-9 Depression Total Score: 4 06/20/20 23 8:40 AM LABOR ECONOMIST documented as of this encounter Care Teams Electronic Scanner Operator Relationship Specialty Start Date End Date Esha Grimm PA-C [address] [place] [phone] PCP - General Family Medicine 05/04/23 Diana Desir, [facility] [address] [place] [address] Pharmacist Pharmacist 04/17/21 Rain Galaviz PA-C [address] [place] [address] [address] [address] Physician Boating Safety Officer Dermatology 04/28/21 Tavia Wyatt MD [address] [place] [address] [facility] [address] [address] Dermatology 07/14/21 Erica Farrell APRN BISQUE FINISHER [address] [place] [address] Nurse Practitioner Cardiovascular Disease 09/09/21 Rich Barrett MD [address] [place] [address]3695 Physician Ophthalmology 01/21/22 Neil Kent MD [address] [place] [address] [phone] Dermatology 02/24/22 Diana Desir, [facility] [address] [place] [address] Assigned MTM Pharmacist 04/07/22 Livan Sharif MD [address] [place] [address] Cardiovascular Disease 05/14/22 Catherine Cm MD [address] [facility] [address] 980375 Cardiovascular Disease 07/21/22 Valery Veronica, PA-C [address] [place], [place] 0175[address] Physician Boating Safety Officer Dermatology 07/21/22 Brea Quinn APRN BISQUE FINISHER [address] [place], [place] [phone] Nurse Practitioner Dermatology 09/21/22 Brea Quinn APRN BISQUE FINISHER [address] [place], [place] 055822 Assigned Surgical Provider 10/09/22 [place] [address] [place], [place] 890737 Assigned Musculoskeletal Provider 10/09/22 Alfonso Renteria MD [address] [facility] [address] [place], [place] 881856 Assigned Neuroscience Provider 04/02/23 Radha Lomeli APRN BISQUE FINISHER [address] [facility] [address] [phone] Assigned Heart and Vascular Provider 05/28/23 Jelena David OD [address] [facility] [place] [address] Ophthalmology 06/15/23 Pao Joseph, VJ Personal Advocate & Liaison (PAL) Nurse 08/01/23 Esha Grimm, PA-C [address] [place] [phone] Assigned PCP 07/16/23 documented as of this encounter
--- OUTSIDE RECORDS SUMMARY | 2023-10-15 21:48 | XMS_ITS | Encounter Summary ---
Author Name Unknown Organization [facility] Address [address] [place] [address] Care Team Providers Care Testing Specialist Name Role Phone ThangKendrickDiana T [facility] Unavailable Rain Galaviz-C Unavailable Tavia Wyatt MD Unavailable Unavailable Erica Farrell APRN CANE SPLICER Unavailable Rich Barrett MD Unavailable Neil Kent MD Unavailable Diana Desir [facility] Unavailable [phone] Livan Sharif MD Unavailable Catherine Cm MD Unavailable + Valery Veronica PA-C Unavailable [phone] Brea Quinn VACUUM FILTER OPERATOR CANE SPLICER Unavailable Brea Quinn VACUUM FILTER OPERATOR CANE SPLICER Unavailable Jose Francisco Johnson MD Unavailable Alfonso Renteria MD Unavailable + [phone] Esha Grimm PA-C Primary Care Provider [phone] Radha Lomeli VACUUM FILTER OPERATOR CANE SPLICER Unavailable [phone] FrankieJelena OD Unavailable [phone] Pao Joseph RN Unavailable Unavailable Esha Grimm PA-C Unavailable [phone] Valery Veronica PA-C Unavailable [phone] Rey Tay MD Unavailable ZepedaRocky Unavailable Encounter Details Date Type Department Care Team (Late st Contact Info) Description 09/20/2023 MyC Medical Advice [facility] [address] [place] [phone] Esha Grimm PA-C [id number] [place] [phone] Social History Tobacco Use Types Packs/Day [...] week 03/10/2023 How often do you attend [facility] or hindu services? 1 to 4 times per year 03/10/2023 Do you belong to any clubs o r organizations such as confucianist groups, unions, fraternal or athletic groups, [...] Answer Date Recorded PHQ-2 Score 0 06/20/2023 [facility] - Occupational Stress Questionnaire Answer [...] exercise at this level? 30 min 03/10/2023 [place] Depression Scale Answer Date Recorded [place] Depression Score 5 01/14/2021 Last EPDS Self [...] Description 10/25/2023 11:30 AM CDT Virtual Visit [facility] [address] [place] [phone] [address], RD [address] [place] [address] 11/03/2023 8:00 AM CDT Office Visit [facility] [address] [place] [phone] Valery Veronica PA-C [address] [place] [address] 11/29/2023 8:00 AM CDT Office Visit [facility] [address] [place] [phone] Esha Grimm PA-C [address] [place] [phone] 01/02/2024 8:00 AM CDT Office Visit [facility] Sleep [facility] [address] [place] [phone] Lauren Claudio PA-C [address] [place], [place] [phone] Kelli Perez MD [address] [place], [place] 0[address]484 documented as of this encounter Visit Diagnoses Not on filedocumented in this encounter Additional Health Concerns Assessment Noted Time PHQ-9 Depression Total Score: 4 06/20/20 23 8:40 AM INSPECTOR PUBL[employer]S documented as of this encounter Care Teams Testing Specialist Relationship Specialty Start Date End Date Esha Grimm PA-C [address] [place] [phone] PCP - General Family Medicine 05/04/23 Diana Desir, [facility] [address] [place] [address] Pharmacist Pharmacist 04/17/21 Rain Galaviz PA-C [address] [place] [address] [address] [place] [address] Physician Mill Control Operator Dermatology 04/28/21 Tavia Wyatt MD [address] [place] [address] [address] [place] [address] Dermatology 07/14/21 Erica Farrell APRN CANE SPLICER [address] [facility] [address] [place] [address] Nurse Practitioner Cardiovascular Disease 09/09/21 Rich Barrett MD [address] [facility] [address] [place], [place] 468985 Physician Ophthalmology 01/21/22 Neil Kent MD 500 [place], [place] [phone] Dermatology 02/24/22 Diana Desir, [facility] [address] [place], [place] [phone] Assigned [place] Pharmacist 04/07/22 Livan Sharif MD [address] [facility] [address] [place], [place] 8[address]35 Cardiovascular Disease 05/14/22 Catherine Cm MD [address] [place] [phone] [place], [place] 200155 Cardiovascular Disease 07/21/22 Valery Veronica, PA-C [address] [place] [address] 279215 Physician Mill Control Operator Dermatology 07/21/22 Brea Quinn APRN CANE SPLICER [address] [place] [address] [phone] Nurse Practitioner Dermatology 09/21/22 Brea Quinn APRN CANE SPLICER [address] [place] [address] 656042 Assigned Surgical Provider 10/09/22 [place] [address] [address] 638877 Assigned Musculoskeletal Provider 10/09/22 Alfonso Renteria MD 5775 [facility] 200 [place], [place] [phone] Assigned Neuroscience Provider 04/02/23 Radha Lomeli APRN CANE SPLICER [address] [facility] [address] [place], [place] 990635 Assigned Heart and Vascular Provider 05/28/23 Jelena David OD [address] [facility] [place] [address] Ophthalmology 06/15/23 Pao Joseph, VJ Personal Advocate & Liaison (PAL) Nurse 08/01/23 Esha Grimm PAUcheC [address] [place] [phone] Assigned PCP 07/16/23 Valery Veronica PAUcheC [address] [place] [address] 793875 Physician Mill Control Operator Dermatology 09/19/23 Rey Tay MD [address] [place] [address] 407275 Gastroenterology 09/20/23 Rocky Zepeda DO [address] [place] [address] [phone] Physician Gastroenterology 09/20/23 documented as of this encounter
--- OUTSIDE RECORDS SUMMARY | 2023-10-15 21:48 | XMS_ITS | Encounter Summary ---
Author Name Unknown Organization [place] Address [address] [place] [address] Care Team Providers Care School Traffic Supervisor Name Role Phone ThangKendrickDiana T [facility] Unavailable Rain Galaviz-C Unavailable Tavia Wyatt MD Unavailable Unavailable Erica Farrell APRN TRACK INSPECTOR Unavailable Rich Barrett MD Unavailable Neil Kent MD Unavailable Diana Desir [facility] Unavailable [phone] Livan Sharif MD Unavailable Catherine Cm MD Unavailable + Valery Veronica PA-C Unavailable [phone] Brea Quinn FIRE LOOKOUT TRACK INSPECTOR Unavailable Brea Quinn FIRE LOOKOUT TRACK INSPECTOR Unavailable [phone] Jose Francisco Johnson MD Unavailable Alfonso Renteria MD Unavailable + [phone] Esha Grimm PA-C Primary Care Provider [phone] Radha Lomeli FIRE LOOKOUT TRACK INSPECTOR Unavailable Frankie Jelena Garcia OD Unavailable Pao Joseph RN Unavailable Unavailable Esha Grimm PA-C Unavailable [phone] Valery Veronica PA-C Unavailable Rey Tay MD Unavailable Rocky Zepeda Unavailable Reason for Visit * Reason Comments Medication Therapy Management [facility] F/U Encounter Details Date Type Department Care Team (Late st Contact Info) Description 09/21/2023 4:00 PM CDT Virtual Visit [address] [address] Diana Desir, [facility] [address] [place] [address] Anxiety (Primary Dx); Moderate major depression (H) Social History Tobacco Use Types Packs/Day Years [...] often do you attend chur ch or rastafarian services? 1 to 4 times per year 03/10/2023 Do you belong to any clubs o r organizations such as pentecostal groups, unions, fraternal or athletic groups, [...] Answer Date Recorded PHQ-2 Score 0 06/20/[address] [facility] - Occupational Stress Questionnaire Answer [...] exercise at this level? 30 min 03/10/2023 [place] Depression Scale Answer Date Recorded [place] Depression Score 5 01/14/2021 Last EPDS Self [...] AM CDT documented as of this encounter Patient Instructions * Patient Instructions* Diana Desir RPH - 09/21/2023 4:00 PM CDT Recommendations from today's MTM visit: No medication changes. Continue paroxetine 40 mg daily. It was great speaking with you today. I value your experience and would be very thankful for your time in providing feedback in our clinic survey. In the next few days, you may receive an email or text message from [employer] with a link to a survey related to your ???clinical pharmacist. To schedule another MTM appointment, please call the clinic directly or you may call the MTM scheduling line at [phone] or toll-free at . My Clinical Pharmacist's contact information: Please feel free to contact me with any questions or concerns you have. Diana Desir, PharmD, BCACP Medication Therapy Management Provider, [facility] documented in this encounter Progress Notes * Diana Desir RPH - 09/21/2023 4:00 PM CDT Medication Therapy Management (MTM) Encounter ASSESSMENT: Medication Adherence/Access: No issues identified Anxiety/Depression: Improved. Will continue paroxetine at 40mg/day. Future if worsens, may considerswitching to escitalopram. PLAN: No medication changes. Continue paroxetine 40 mg daily. Follow-up: Return in about 6 months (around 03/23/2024) for Medication Therapy Management Pharmacist. SUBJECTIVE/OBJECTIVE: Kim Johnson is a 23 year old female called for a follow-up visit. Reason for visit: anxiety and depression follow-up. Tobacco: She reports that she quit smoking about 3 years ago. Her smoking use included other and cigarettes. She smoked an average of 1 pack per day. She has been exposed to tobacco smoke. She has never used smokeless tobacco. Alcohol: not currently using Medication Adherence/Access: no issues reported Anxiety/Depression: paroxetine 40 mg daily AM (increased dose back up from 20 mg for past 3 weeks) Lorazepam 0.5 mg as needed (needing less lately, less than weekly) No side effects. Feels paroxetine is working again, still some anxiety but better than previous. Much better than venlafaxine and now improved since back up on the 40 mg dose. Would like to continue paroxetine for now. Following therapist regularly. Past med trial: Buspirone (made her feel very weird, suicidal thoughts she thinks) Sertraline (obessive about certain things and ineffective after being on for so long on 200 mg/day) Venlafaxine (anxious, jittery, sweaty, felt terrible) 05/02/2023 9:30 AM 05/16/2023 9:28 AM 06/20/2023 8:40 AM PHQ PHQ-9 Total Score 5 6 4 Q9: Thoughts of better off /self-harm past 2 weeks Not at all Not at all Not at all 03/10/2023 6:50 AM 06/20/2023 8:40 AM 09/01/2023 10:57 AM KALYN-7 SCORE Total Score 3 (minimal anxiety) 4 (minimal anxiety) Total Score 3 4 6 Today's Vitals: There were no vitals taken for this visit. Post Discharge Medication Reconciliation Status: discharge medications reconciled, continue medications without change. I spent 7 minutes with this patient today. All changes were made via collaborative practice agreement with Esha Grimm PA-C. A copy of the visit note was provided to the patient's provider(s). A summary of these recommendations was sent via [employer]. Diana Desir, PharmD, BCACP Medication Therapy Management Provider, [facility] [phone] Telemedicine Visit Details Type of service: Telephone visit Start Time: 4:06 PM End Time: 4:13 PM Medication Therapy Recommendations No medication therapy recommendations to display documented in this encounter Plan of Treatment Upcoming Encounters Date Type Department Care Team (Late st Contact Info) Description 10/25/2023 11:30 AM CDT Virtual Visit [facility] [address] 4th [place] [phone] [address] Mes[address], RD [address] [place] [address] 11/03/2023 8:00 AM CDT Office Visit [address] [phone] Valery Veronica PA-C [address] [place] [address] 11/29/2023 8:00 AM CDT Office Visit [facility] [address] [place] [phone] Esha Grimm PA-C [address] [place] [phone] 01/02/2024 8:00 AM CDT Office Visit [facility] [address] [place] [phone] Lauren Claudio PA-C [address] [place], [place] [phone] Kelli Perez MD [address] [address] documented as of this encounter Visit Diagnoses Diagnosis Anxiety- Primary Anxiety state, unspecified Moderate major depression (H) Major depressive disorder, single episode, moderate documented in this encounter Additional Health Concerns Assessment Noted Time PHQ-9 Depression Total Score: 4 06/20/20 23 8:40 AM IRRIGATOR GRAVITY FLOW documented as of this encounter Care Teams School Traffic Supervisor Relationship Specialty Start Date End Date Esha Grimm PA-C [address] [place] [address] PCP - General Family Medicine 05/04/23 Diana Desir, [facility] [address] [place], [place] [address] Pharmacist Pharmacist 04/17/21 Rain Galaviz PA-C [address] [place] [address] [address] [place] [address] Physician Mock Up Builder Dermatology 04/28/21 Tavia Wyatt MD [address] [place] [address] DR RA[address] [facility] [place] [address] Dermatology 07/14/21 Erica Farrell APRN TRACK INSPECTOR 6[address] [facility] [address] [place] [address] Nurse Practitioner Cardiovascular Disease 09/09/21 Rich Barrett MD 516 [facility] 9A [place], [place] [address] Physician Ophthalmology 01/21/22 Neil Kent MD 500 [place] [address] Dermatology 02/24/22 Diana Desir, [facility] [address] [place] [address] Assigned MTM Pharmacist 04/07/22 Livan Sharif MD [address] [facility] [address] [facility] [address] [place] [address] Cardiovascular Disease 05/14/22 Catherine Cm MD 6[address] [facility] [address] [place] [address] Cardiovascular Disease 07/21/22 Valery Vernoica, PAUcheC [address] [place] [address] Physician Mock Up Builder Dermatology 07/21/22 Brea Quinn APRN TRACK INSPECTOR [address] [place] [address] Nurse Practitioner Dermatology 09/21/22 Brea Quinn APRN TRACK INSPECTOR [address] [place] [address] Assigned Surgical Provider 10/09/22 [place] [address] [address] Assigned Musculoskeletal Provider 10/09/22 Alfonso Renteria MD 5775 [facility] 200 [place] [address] Assigned Neuroscience Provider 04/02/23 Radha Lomeli APRN TRACK INSPECTOR [address] [place] [address] Assigned Heart and Vascular Provider 05/28/23 Jelena David OD [address] [facility] [place] [address] MD Ophthalmology 06/15/23 Pao Joseph, VJ Personal Advocate & Liaison (PAL) Nurse 08/01/23 Esha Grimm PA-C [address] [place] [phone] Assigned PCP 07/16/23 Valery Veronica PA-C [address] [place], [place] 7176[address] Physician Mock Up Builder Dermatology 09/19/23 Rey Tay MD 909 [place] [address] Gastroenterology 09/20/23 Rocky Zepeda DO 500 [place] [address] Physician Gastroenterology 09/20/23 documented as of this encounter
--- OUTSIDE RECORDS SUMMARY | 2023-10-15 21:48 | XMS_ITS | Encounter Summary ---
Author Name Unknown Organization [facility] Address [address] [place] [address] Care Team Providers Care Rn Cardiac Cath Name Role Phone ThangKendrickDiana T [facility] Unavailable [phone] Rain Galaviz-C Unavailable [phone] Taiva Wyatt MD Unavailable Unavailable Erica Farrell APRN EDGE GRINDER MACHINE Unavailable Rich Barrett MD Unavailable Neil Kent MD Unavailable Diana Desir [facility] Unavailable [phone] Livan Sharif MD Unavailable Catherine Cm MD Unavailable + Valery Veronica PA-C Unavailable [phone] Brea Quinn TECH BRAZER TESTER EDGE GRINDER MACHINE Unavailable Brea Quinn TECH BRAZER TESTER EDGE GRINDER MACHINE Unavailable Jose Francisco Johnson MD Unavailable Alfonso Renteria MD Unavailable + [phone] Esha Grimm PA-C Primary Care Provider [phone] Radha Lomeli TECH BRAZER TESTER EDGE GRINDER MACHINE Unavailable FrankieJelena OD Unavailable Pao Joseph RN Unavailable Unavailable Esha Grimm PA-C Unavailable [phone] Valery Veronica PA-C Unavailable [phone] Rey Tay MD Unavailable DuaneRocky Unavailable Philip Dumont MD Unavailable [phone] Reason for Visit * Reason Comments Pharyngitis Encounter Details Date Type Department Care Team (Late st Contact Info) Description 09/29/2023 12:13 AM CDT - 09/29/2023 12:14 AM CDT Emergency [facility] Emergency Dept [address] [place] [address] Discharge Disposition: Left Without Being Seen Social History Tobacco Use Types Packs/Day Years [...] often do you attend chur ch or jehovah's witness services? 1 to 4 [...] Date Recorded PHQ-2 Score 0 06/20/2023 [facility]ational Stress Questionnaire Answer Date [...] exercise at this level? 30 min 03/10/2023 [place] Depression Scale Answer Date Recorded [place] Depression Score 5 01/14/2021 Last EPDS Self [...] Sign Reading Time Taken Comments Blood Pressure 117/58 09/28/2023 10:56 PM CDT Pulse 75 09/28/2023 10:56 PM CDT Temperature 36.7 ??C (98.1 ??F) 09/28/2023 10:56 PM C DT Respiratory Rate 18 09/28/2023 10:56 PM CDT Oxygen Saturation 99% 09/28/2023 10:56 PM CDT Inhaled Oxygen Concentration - - Weight - - Height - - Body Mass Index - - documented in this encounter Medications at Time of Discharge Medication Sig Dispensed Refills Start Date End Date clindamycin (CLEOCIN T) 1 % external lotionIndications:Acne , unspecified acne type Apply topically 2 times daily 60 mL 1 09/01/2023 ketoconazole (NIZORAL) 2 % external shampooIndications:Pso riasis Use every 1-2 days when flared. Leave in few minutes before rinsing. Use twice weekly to prevent flares. 120 mL 11 10/01/2022 levonorgestrel (MIRENA) 52 MG (20 mcg/day) IUD by Intrauterine route once 0 Lidocaine (LIDOCARE) 4 % PatchIndications:Acute left-sided low back pain with left-sided sciatica,Sacroiliac joint pain,Neck pain Place 1 patch onto the skin every 24 hours To prevent lidocaine toxicity, patient should be patch free for 12 hrs daily. 30 patch 1 10/11/2022 LORazepam (ATIVAN) 0.5 MG tabletIndications:Anxi ety Take 1 tablet (0.5 mg) by mouth daily as needed for anxiety 30 tablet 0 07/28/2023 metoprolol succinate ER (TOPROL XL) 25 MG 24 hr tabletIndications:Palp itations Take 0.5 tablets (12.5 mg) by mouth daily 45 tablet 1 05/25/2023 omeprazole (PRILOSEC) [address] capsuleIndications:Epi gastric pain TAKE 1 CAPSULE BY MOUTH DAILY. 90 capsule 3 09/16/2023 PARoxetine (PAXIL) 40 MG tabletIndications:Anxi ety Take 1 tablet (40 mg) by mouth every morning 90 tablet 1 09/21/2023 tacrolimus (PROTOPIC) 0.1 % external ointmentIndications:Ps oriasis Apply thin layer to psoriasis on thinner skin of face/genitals up to twice daily as needed. 60 g 11 10/01/2022 tretinoin (RETIN-A) 0.05 % external creamIndications:Acne, unspecified acne type Apply topically at bedtime 45 g 0 09/01/2023 triamcinolone (KENALOG) 0.1 % external ointmentIndications:Ps oriasis Apply topically 2 times daily To psoriasis on body or arms/legs until healed then stop 80 g 2 10/01/2022 documented as of this encounter ED Notes * Alisia Giles RN - 09/28/2023 10:55 PM CDT Patient reports for the last hour she has difficulty swallowing because she feels like her throat feels swollen. Patient states she was recently diagnosed with an issue with her airway and feels thisis related, patient states this happens occasionally but typically resolves on it's own. Patient denies difficulty breathing. Triage Assessment (Adult) Row Name 09/28/23 7798 Triage Assessment Airway WDL WDL Respiratory WDL Respiratory WDL WDL Skin Circulation/Temperature WDL Skin Circulation/Temperature WDL WDL Cardiac WDL Cardiac WDL WDL documented in this encounter Plan of Treatment Upcoming Encounters Date Type Department Care Team (Late st Contact Info) Description 10/25/2023 11:30 AM CDT Virtual Visit [facility] [address] [place] [address] Nelly Mesa, RD [address] [place] [address] 11/03/2023 8:00 AM CDT Office Visit [facility] [address]30 [place] [phone] Valery Veronica PA-C 909 [place] [address] 11/29/2023 8:00 AM CDT Office Visit [facility] [address] [place] [phone] Esha Grimm PA-C [address] [place] [address] 01/02/2024 8:00 AM CDT Office Visit [facility] [address] [place] [phone] Lauren Claudio PA-C [address] [place] [address] Kelli Perez MD [address] [place], [place] [phone] documented as of this encounter Visit Diagnoses Not on filedocumented in this encounter Additional Health Concerns Assessment Noted Time PHQ-9 Depression Total Score: 4 06/20/20 23 8:40 AM [employer] documented as of this encounter Care Teams Rn Cardiac Cath Relationship Specialty Start Date End Date Esha Grimm PA-C [id number] [place] [address] PCP - General Family Medicine 05/04/23 Diana Desir, [facility] [address] [place] [address] Pharmacist Pharmacist 04/17/21 Rain Galaviz PA-C [address] [place] [address] [address] [place] [address] Physician Certified Technician Specialist Dermatology 04/28/21 Tavia Wyatt MD [address] [place] [address] DR RA[address] [place] [facility] [address] Dermatology 07/14/21 Erica Farrell APRN EDGE GRINDER MACHINE [address] [place] [address] Nurse Practitioner Cardiovascular Disease 09/09/21 Rich Barrett MD [address] [place] [address] Physician Ophthalmology 01/21/22 Neil Kent MD 500 [place], [place] [address]235 Dermatology 02/24/22 Diana Desir, [facility] [address] [place] [address] Assigned MTM Pharmacist 04/07/22 Livan Sharif MD [address] [place] [address]267[address] Cardiovascular Disease 05/14/22 Catherine Cm MD [address] [place] 487[address] Cardiovascular Disease 07/21/22 Valery Veronica PA-C 9[address] [place], [place] [address] Physician Certified Technician Specialist Dermatology 07/21/22 Brea Quinn APRN EDGE GRINDER MACHINE 500 [place], [place] [address]265 Nurse Practitioner Dermatology 09/21/22 Brea Quinn APRN EDGE GRINDER MACHINE 64[address] [place], [place] 6[address]232 Assigned Surgical Provider 10/09/22 [place] [address] [place] [facility] 300 [place], [place] [address]87 Assigned Musculoskeletal Provider 10/09/22 Alfonso Renteria MD [address] [facility] 200 [place] [address] Assigned Neuroscience Provider 04/02/23 Radha Lomeli APRN EDGE GRINDER MACHINE 6405 [facility] [address] [place], [place] 328425 Assigned Heart and Vascular Provider 05/28/23 Jelena David OD 3305 [facility] [place] [id number] Ophthalmology 06/15/23 Pao Joseph, RN Personal Advocate & Liaison (PAL) Nurse 08/01/23 Esha Grimm PA-C [address] [place] [phone] Assigned PCP 07/16/23 Valery Veronica PA-C 9 [place] [address] Physician Certified Technician Specialist Dermatology 09/19/23 Rey Tay MD [address] [place] [address] Gastroenterology 09/20/23 Rocky Zepeda DO [address] [place] [address] Physician Gastroenterology 09/20/23 Philip Dumont MD [address] [place] [address] 298865 Physician Ophthalmology 09/22/23 documented as of this encounter
--- OUTSIDE RECORDS SUMMARY | 2023-10-15 21:49 | XMS_ITS | Encounter Summary ---
Author Name Unknown Organization [facility] Address [address] [place] [address] Care Team Providers Care Director Of Accounting Name Role Phone ThangKendrickDiana T [facility] Unavailable [phone] Rain Galaviz-C Unavailable Tavia Wyatt MD Unavailable Unavailable Erica Farrell APRN DEMAND EQUIPMENT REPAIRER Unavailable Rich Barrett MD Unavailable Neil Kent MD Unavailable Diana Desir [facility] Unavailable [phone] Livan Sharif MD Unavailable Catherine Cm MD Unavailable + Valery Veronica PA-C Unavailable [phone] Brea Quinn RESIN FILTERER DEMAND EQUIPMENT REPAIRER Unavailable Brea Quinn RESIN FILTERER DEMAND EQUIPMENT REPAIRER Unavailable Jose Francisco Johnson MD Unavailable Alfonso Renteria MD Unavailable + [phone] Esha Grimm PA-C Primary Care Provider [phone] Radha Lomeli RESIN FILTERER DEMAND EQUIPMENT REPAIRER Unavailable [phone] Jelena David OD Unavailable Pao Joseph RN Unavailable Unavailable Esha Grimm PA-C Unavailable [phone] Reason for Visit * Reason Onset Date Comments Outreach 09/02/2023 Encounter Details Date Type Department Care Team (Late st Contact Info) Description 09/02/2023 MyC Medical Advice [facility] [address] [place] [phone] Esha Grimm PA-C [id number] [place] [phone] Outreach Social History Tobacco Use Types Packs/Day Years Used Date Smoking Tobacco: Former Cigarettes 1 Q uit: 12/07/2019 Other Passive Smoke Exposure: Past Smokeless Tobacco: Never Alcohol Use Standard Drinks/Week Comments Not Currently 0 (1 standard drink = 0.6 oz pur e alcohol) Social Connection and Isolation Panel [NHANES] A nswer Date Recorded In a typical week, how many times do you talk on the phone with family, friends, or neighbors? Three times a week 03/10/20 How often do you get togethe r with friends or relatives? Twice a week 03/10/2023 How often do you attend chur ch or protestant services? 1 to 4 times per year [...] Answer Date Recorded PHQ-2 Score 0 06/20/2023 [facility] - Occupational Stress [...] exercise at this level? 30 min 03/10/2023 [place] Depression Scale Answer Date Recorded [place] Depression Score 5 01/14/2021 Last EPDS Self [...] encounter Miscellaneous Notes * Telephone Encounter - Pao Joseph RN - 09/02/2023 3:23 PM CST Esha Grimm PA-C- See pt's Bawtet message. Please review and advise. Routed to PCP Pao Marcos RN PAL (Patient Advocate Liaison) [facility] TURNING 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 documented in this encounter Plan of Treatment Upcoming Encounters Date Type Department Care Team (Late st Contact Info) Description 10/25/2023 11:30 AM CDT Virtual Visit [facility] [address] [phone] Nelly Mesa, RD [address] [place] [address] 11/03/2023 8:00 AM CDT Office Visit [address] [phone] Valery Veronica PA-C [address] [place] [address] 11/29/2023 8:00 AM CDT Office Visit [address] [address] Esha Grimm PA-C [address] [place] [address] 01/02/2024 8:00 AM CDT Office Visit [facility] [address] [place] [phone] Lauren Claudio PA-C [address] [place], [place] [phone] Kelli Perez MD [address] [place], [place] 5506[address] documented as of this encounter Visit Diagnoses Not on filedocumented in this encounter Additional Health Concerns Assessment Noted Time PHQ-9 Depression Total Score: 4 06/20/20 23 8:40 AM RIM TURNING 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 documented as of this encounter Care Teams Director Of Accounting Relationship Specialty Start Date End Date Esha Grimm PA-C [address] [place] [phone] PCP - General Family Medicine 05/04/23 Diana Desir, [facility] [address] [place] [place], [place] [address] Pharmacist Pharmacist 04/17/21 Rain Galaviz PA-C [address] [place] [address] [address] [place] [address] [address] Patrol Dermatology 04/28/21 Tavia Wyatt MD [address] [place] [address] [address] [place] [address] Dermatology 07/14/21 Erica Farrell APRN DEMAND EQUIPMENT REPAIRER 6405 [facility] [address] [place] [address]18[address] Nurse Practitioner Cardiovascular Disease 09/09/21 Rich Barrett MD [address] [facility] [place], [place] [address] Physician Ophthalmology 01/21/22 Neil Kent MD 500 [place] [address] Dermatology 02/24/22 [facility] 3033 [place] [address] Assigned [place] Pharmacist 04/07/22 Livan Sharif MD [address] 040[address] Cardiovascular Disease 05/14/22 Catherine Cm MD [address] 101[address] Cardiovascular Disease 07/21/22 Valery Veronica, PAUcheC 909 [place], [place] 9[address] Physician Pilot [address] Patrol Dermatology 07/21/22 Brea Quinn APRN DEMAND EQUIPMENT REPAIRER 500 [place] [address] Nurse Practitioner Dermatology 09/21/22 Brea Quinn APRN DEMAND EQUIPMENT REPAIRER [address] [place] [address] [place] [address] Assigned Surgical Provider 10/09/22 [place] [address] [place] [address] Assigned Musculoskeletal Provider 10/09/22 Alfonso Renteria MD [address] [place] [address] Assigned Neuroscience Provider 04/02/23 Radha Lomeli APRN DEMAND EQUIPMENT REPAIRER [address] [facility] [address] [place] [address] Assigned Heart and Vascular Provider 05/28/23 Jelena David OD [address] [facility] [place] [address] Ophthalmology 06/15/23 Pao Joseph, VJ Personal Advocate & Liaison (PAL) Nurse 08/01/23 Esha Grimm, PA-C [address] [place] [address] Assigned PCP 07/16/23 documented as of this encounter
--- OUTSIDE RECORDS SUMMARY | 2023-10-15 21:49 | XMS_ITS | Encounter Summary ---
Author Name Unknown Organization [place] Address [address] [place] [address] Care Team Providers Care Patent Paralegal Name Role Phone ThangKendrickDiana T [facility] Unavailable [phone] Rain Galaviz-C Unavailable Tavia Wyatt MD Unavailable Unavailable Erica Farrell APRN ANIMAL TRAINER Unavailable Rich Barrett MD Unavailable Neil Kent MD Unavailable Diana Desir [facility] Unavailable [phone] Livan Sharif MD Unavailable Catherine Cm MD Unavailable + Valery Veronica PA-C Unavailable [phone] Brea Quinn CAMPAIGN MARKETING SPECIALIST ANIMAL TRAINER Unavailable [phone] Brea Quinn CAMPAIGN MARKETING SPECIALIST ANIMAL TRAINER Unavailable [phone] Jose Francisco Johnson MD Unavailable Alfonso Renteria MD Unavailable + [phone] Esha Grimm PA-C Primary Care Provider [phone] Radha Lomeli CAMPAIGN MARKETING SPECIALIST ANIMAL TRAINER Unavailable FrankieJelena OD Unavailable Pao Joseph RN Unavailable Unavailable Esha rGimm PA-C Unavailable Reason for Visit * Reason Onset Date Comments Procedure 09/08/2023 Encounter Details Date Type Department Care Team (Late st Contact Info) Description 09/08/2023 Telephone M [facility] [address] 4th [place] [address] Mary Kelsey Procedure Social History Tobacco Use Types Packs/Day Years [...] How often do you attend chur or baptism services? 1 to 4 times per year 03/10/2023 Do you belong to any clubs o r organizations such as mormon groups, unions, fraternal or athletic groups, [...] [facility] - Occupational Stress Questionnaire Answer Date [...] exercise at this level? 30 min 03/10/2023 [place] Depression Scale Answer Date Recorded [place] Depression Score 5 01/14/2021 Last EPDS Self [...] encounter Miscellaneous Notes * Telephone Encounter - Mary Kelsey - 09/08/2023 11:28 AM CST Caller: Kim Johnson Reason for Reschedule/Cancellation (please be detailed, any staff messages or encounters to note?): She stated she talked with someonefor todays cancel and was to hear back right away about working her in for 3/. Had influenza, but states she is better now. Prior to reschedule please review: Ordering Provider: Lauren Claudio Sedation Determined: moderate Does patient have any ASC Exclusions, please identify?: n Notes on Cancelled Procedure: Procedure: Upper Endoscopy [EGD] Date: Location: [facility]; [address], [place] [address] Surgeon: Yolanda Rescheduled: Yes, Procedure: Upper Endoscopy [EGD] Date: 09/11 Location: [facility]; [address] [place] [address] Surgeon: Jasvir Sedation Level Scheduled moderate, Reason for Sedation Level ordered Instructions updated and sent: y Does patient need PAC or Pre -Op Rescheduled? : no Did you cancel or rescheduled an EUS procedure? No. COATER documented in this encounter Plan of Treatment Upcoming Encounters Date Type Department Care Team (Late st Contact Info) Description 10/25/2023 11:30 AM CDT Virtual Visit [facility] [address]th [place] [phone] Nelly Mesa, RD 909 [place] [address] 11/03/2023 8:00 AM CDT Office Visit [address] [phone] JeremíasValery PA-C 330 [place] [address] 11/29/2023 8:00 AM CDT Office Visit [facility] [address] [place] [phone] Esha Grimm PA-C [address] [place] [address] 01/02/2024 8:00 AM CDT Office Visit [facility] [address] [place] [phone] Lauren Claudio PA-C [address] [place], [place] [phone] Kelli Perez MD [address] 105084 documented as of this encounter Visit Diagnoses Not on filedocumented in this encounter Additional Health Concerns Assessment Noted Time PHQ-9 Depression Total Score: 4 06/20/20 23 8:40 AM GEL COATER documented as of this encounter Care Teams Patent Paralegal Relationship Specialty Start Date End Date Esha Grimm PA-C [id number] [place] [phone] PCP - General Family Medicine 05/04/23 Diana Desir, [facility] [address] [place] [address] Pharmacist Pharmacist 04/17/21 Rain Galaviz PA-C [address] [place] [address] DR RAZO [facility] [id number] Physician Junior Linux Systems Administrator Dermatology 04/28/21 Tavia Wyatt MD [address] [place] [address] DR RAZO [facility] [place] [address] Dermatology 07/14/21 Erica Farrell APRN ANIMAL TRAINER [address] [place], [place] 342185 Nurse Practitioner Cardiovascular Disease 09/09/21 Rich Barrett MD 516 [facility], [address] [address] Physician Ophthalmology 01/21/22 Neil Kent MD [address] [place] [address] Dermatology 02/24/22 Diana Desir, [facility] 3033 [place], [place] 356736 Assigned MTM Pharmacist 04/07/22 Livan Sharif MD [address] 00 [place], [place] 418365 Cardiovascular Disease 05/14/22 Catherine Cm MD [address] 00 [place] 804495 Cardiovascular Disease 07/21/22 Valery Veronica, PA-C [address] [place] [address] 283465 Physician Junior Linux Systems Administrator Dermatology 07/21/22 Brea Quinn APRN ANIMAL TRAINER 500 [place] [address] Nurse Practitioner Dermatology 09/21/22 Brea Quinn APRN ANIMAL TRAINER 6401 [facility] [place] [address] Assigned Surgical Provider 10/09/22 [place] [address] [facility] 300 [place] [address] Assigned Musculoskeletal Provider 10/09/22 Alfonso Renteria MD 5775 [facility] 200 [place], [place] 644826 Assigned Neuroscience Provider 04/02/23 Radha Lomeli, CAMPAIGN MARKETING SPECIALIST ANIMAL TRAINER [address] [facility] [address] [place] [address] Assigned Heart and Vascular Provider 05/28/23 Jelena David OD [address] [place] [address] Ophthalmology 06/15/23 Pao Joseph, VJ Personal Advocate & Liaison (PAL) Nurse 08/01/23 Esha Grimm PAUcheC [address] [place] [phone] Assigned PCP 07/16/23 documented as of this encounter
--- OUTSIDE RECORDS SUMMARY | 2023-10-15 21:49 | XMS_ITS | Encounter Summary ---
Author Name Unknown Organization [place] Address [address] [place] [address] Care Team Providers Care Manager University Name Role Phone ThangKendrickDiana T [facility] Unavailable Rain Galaviz-C Unavailable [phone] Tavia Wyatt MD Unavailable Unavailable Erica Farrell APRN YARN SPINNER Unavailable Rich Barrett MD Unavailable Neil Kent MD Unavailable Diana Desir [facility] Unavailable [phone] Livan Sharif MD Unavailable Catherine Cm MD Unavailable + Valery Veronica PA-C Unavailable [phone] Brea Quinn PROFILE GRINDER YARN SPINNER Unavailable Brea Quinn PROFILE GRINDER YARN SPINNER Unavailable Jose Francisco Johnson MD Unavailable Alfonso Renteria MD Unavailable + [phone] Esha Grimm PA-C Primary Care Provider [phone] Radha Lomeli PROFILE GRINDER YARN SPINNER Unavailable [phone] Jelena David OD Unavailable [phone] Pao Joseph RN Unavailable Unavailable Esha Grimm PA-C Unavailable [phone] Reason for Visit * Reason Onset Date Comments Prior Auth - Medication 09/02/2023 tretinoi n (RETIN-A) 0.05 % external cream - EPA DENIED Encounter Details Date Type Department Care Team (Late st Contact Info) Description 09/02/2023 Telephone [facility] [address] [place] [address] Esha Grimm PA-C [address] [place] [address] Prior Auth - Medication (tretinoin (RETIN-A) 0.05 % external cream - EPA DENIED) Social History Tobacco Use Types Packs/Day Years [...] week 03/10/2023 How often do you attend [facility] or voodoo services? 1 to 4 times per year 03/10/2023 Do you belong to any clubs o r organizations such as adventism groups, unions, fraternal or athletic groups, [...] Answer Date Recorded PHQ-2 Score 0 06/20/2023 [facility] - Occupational [...] exercise at this level? 30 min 03/10/2023 [place] Depression Scale Answer Date Recorded [place] Depression Score 5 01/14/2021 Last EPDS Self [...] encounter Miscellaneous Notes * Telephone Encounter - Maryjane Mccallum RN - 09/02/2023 10:09 AM ESCROW ASSISTANT Alfa Balbuena, PAUcheC Please see CARI kraus Thank you Maryjane Mccallum, Registered Nurse [facility] OW ASSISTANT * Telephone Encounter - Jess Denson - 09/02/2023 10:05 AM CST Images from the original note were not included. PRIOR AUTHORIZATION DENIED Medication: TRETINOIN 0.05 % EX CREA Insurance Company: [employer] [phone] Denial Date: 09/02/2023 Denial Reason(s): Appeal Information: Patient Notified: No OW ASSISTANT documented in this encounter Plan of Treatment Upcoming Encounters Date Type Department Care Team (Late st Contact Info) Description 10/25/2023 11:30 AM CDT Virtual Visit [facility] [address]th [place] [phone] Nelly Mesa, RD [address] [place] [address] 11/03/2023 8:00 AM CDT Office Visit [address] [address] Valery Veronica PA-C 909 [place] [address] 11/29/2023 8:00 AM CDT Office Visit [facility] [address] [place] [phone] Esha Grimm PA-C [address] [place] [address] 01/02/2024 8:00 AM CDT Office Visit [facility] [address] [place] [phone] Lauren Claudio PA-C [address] [place], [place] [phone] Kelli Perez MD [address] [phone] documented as of this encounter Visit Diagnoses Not on filedocumented in this encounter Additional Health Concerns Assessment Noted Time PHQ-9 Depression Total Score: 4 06/20/20 23 8:40 AM ESCROW ASSISTANT documented as of this encounter Care Teams Manager University Relationship Specialty Start Date End Date Esha Grimm PA-C [id number] [place] [address] PCP - General Family Medicine 05/04/23 Diana Desir, [facility] [address] [place], [place] 157586 Pharmacist Pharmacist 04/17/21 Rain Galaviz PA-C [address] [place] [address] DR RAZO 250 [place], [place] [phone] Physician Leadership Development Consultant Dermatology 04/28/21 Tavia Wyatt MD [address] [place] [address] DR RAZO [facility] [place] [address] Dermatology 07/14/21 Erica Farrell APRN YARN SPINNER [address] [place] 2[address]35 Nurse Practitioner Cardiovascular Disease 09/09/21 Rich Barrett MD [address] 383[address] Physician Ophthalmology 01/21/22 Neil Kent MD 500 [place], [place] 255285 Dermatology 02/24/22 [facility] 3033 [place], [place] 346126 Assigned [place] Pharmacist 04/07/22 Livan Sharif MD [address] [place] 242335 Cardiovascular Disease 05/14/22 Catherine Cm MD [address] [place] 828865 Cardiovascular Disease 07/21/22 Valery Veronica, PA-C [address] [place] [address] 672835 Physician Leadership Development Consultant Dermatology 07/21/22 Brea Quinn APRN YARN SPINNER 500 [place] [address] Nurse Practitioner Dermatology 09/21/22 Brea Quinn APRN YARN SPINNER 6401 [facility] [place] [address] Assigned Surgical Provider 10/09/22 [place] [address] [facility] 300 [place] [address] Assigned Musculoskeletal Provider 10/09/22 Alfonso Renteria MD 5775 [facility] 200 [place], [place] 063026 Assigned Neuroscience Provider 04/02/23 Radha Lomeli APRN YARN SPINNER 6405 [facility] [address] [place] [address] Assigned Heart and Vascular Provider 05/28/23 Jelena David OD [address] [facility] [place] [address] Ophthalmology 06/15/23 Pao Joseph, VJ Personal Advocate & Liaison (PAL) Nurse 08/01/23 Esha Grimm, PAUcheC [address] [place] [address]-27947283 Assigned PCP 07/16/23 documented as of this encounter
--- OUTSIDE RECORDS SUMMARY | 2023-10-15 21:49 | XMS_ITS | Encounter Summary ---
Author Name Unknown Organization [place] Address [address] [place] [address] Care Team Providers Care Installment Loan Collector Name Role Phone ThangKendrickDiana T [facility] Unavailable [phone] Rain Galaviz-C Unavailable Tavia Wyatt MD Unavailable Unavailable Erica Farrell APRN PHOTO TUBE ASSEMBLER Unavailable Rich Barrett MD Unavailable Neil Kent MD Unavailable Diana Desir [facility] Unavailable [phone] Livan Sharif MD Unavailable Catherine Cm MD Unavailable + Valery Veronica PA-C Unavailable [phone] Brea Quinn DAIRY NUTRITION SPECIALIST PHOTO TUBE ASSEMBLER Unavailable Brea Quinn DAIRY NUTRITION SPECIALIST PHOTO TUBE ASSEMBLER Unavailable Jose Francisco Johnson MD Unavailable Alfonso Renteria MD Unavailable + [phone] Esha Grimm PA-C Primary Care Provider [phone] Radha Lomeli DAIRY NUTRITION SPECIALIST PHOTO TUBE ASSEMBLER Unavailable FrankieJelena OD Unavailable Pao Joseph RN Unavailable Unavailable Alfa Eshalincoln Medina PA-C Unavailable [phone] Valery Veronica PA-C Unavailable [phone] Rey Tay MD Unavailable DuaneRocky Unavailable Philip Dumont MD Unavailable [phone] Encounter Details Date Type Department Care Team (Late st Contact Info) Description 09/08/2023 MyC Medical Advice [facility] [address]th [place] [address] Marija Polanco RN Social History Tobacco Use Types Packs/Day [...] often do you attend chur ch or anabaptist services? 1 to 4 times per year 03/10/2023 Do you belong to any clubs o r organizations such as bahai groups, unions, fraternal or athletic groups, [...] PHQ-2 Score 0 06/20/2023 [facility] - Occupational Stress Questionnaire Answer [...] exercise at this level? 30 min 03/10/2023 [place] Depression Scale Answer Date Recorded [place] Depression Score 5 01/14/2021 Last EPDS Self [...] Description 10/25/2023 11:30 AM CDT Virtual Visit [facility] [address] 4th [place] [phone] Nelly Mesa, RD [address] [place] [address] 11/03/2023 8:00 AM CDT Office Visit [address] [phone] Valery Veronica PA-C [address] [place] [address] 11/29/2023 8:00 AM CDT Office Visit [facility] [address] [place] [phone] Esha Grimm PA-C [address] [place] [phone] 01/02/2024 8:00 AM CDT Office Visit [facility] [address] [place] [phone] Lauren Claudio PA-C [address] [place], [place] [phone] Kelli Perez MD [address] [place] [address] 554594 documented as of this encounter Visit Diagnoses Not on filedocumented in this encounter Additional Health Concerns Assessment Noted Time PHQ-9 Depression Total Score: 4 06/20/20 23 8:40 AM COIN ROLLING 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 documented as of this encounter Care Teams Installment Loan Collector Relationship Specialty Start Date End Date Esha Grimm PA-C [address] [place] [phone] PCP - General Family Medicine 05/04/23 Diana Desir, [facility] [address] [place] [address] Pharmacist Pharmacist 04/17/21 Rain Galaviz PA-C [address] [place] [address] [address] RA[address] [place] [address] Physician Power Technician Dermatology 04/28/21 Tavia Wyatt MD [address] [place] [address] [address] RA[address] 250 [place] [address] Dermatology 07/14/21 Erica Farrell APRN PHOTO TUBE ASSEMBLER [address] [place], [place] 384465 Nurse Practitioner Cardiovascular Disease 09/09/21 Rich Barrett MD 516 [facility] [address] [place], [place] 862785 Physician Ophthalmology 01/21/22 eNil Kent MD 500 [place], [place] 247315 Dermatology 02/24/22 Diana Desir, [facility] 3033 [place], [place] 419516 Assigned MTM Pharmacist 04/07/22 Livan Sharif MD [address] [facility] [address] [place], [place] 165185 Cardiovascular Disease 05/14/22 Catherine Cm MD [address] [place], [place] 725365 Cardiovascular Disease 07/21/22 Valery Veronica, PAUcheC 909 [place], [place] 427475 Physician Power Technician Dermatology 07/21/22 Brea Quinn APRN PHOTO TUBE ASSEMBLER 500 [place], [place] 007515 Nurse Practitioner Dermatology 09/21/22 Brea Quinn APRN PHOTO TUBE ASSEMBLER [address] [place] [address] 114542 Assigned Surgical Provider 10/09/22 [place] [address] [place] [address] [place] [address] Assigned Musculoskeletal Provider 10/09/22 Alfonso Renteria MD 5775 [facility] 200 [place], [place] 315656 Assigned Neuroscience Provider 04/02/23 Lomeli, Radha E, DAIRY NUTRITION SPECIALIST PHOTO TUBE ASSEMBLER [address] [place], [place] 797025 Assigned Heart and Vascular Provider 05/28/23 Jelena David OD [address] [facility] [place] [address] MD Ophthalmology 06/15/23 Pao Joseph, VJ Personal Advocate & Liaison (PAL) Nurse 08/01/23 Esha Grimm PA-C [address] [place] [phone] Assigned PCP 07/16/23 Valery Veronica PA-C 909 [place], [place] 510495 Physician Power Technician Dermatology 09/19/23 Rey Tay MD [address] [place] [address] 208815 Gastroenterology 09/20/23 Rocky Zepeda DO [address] [place] [address] 581175 Physician Gastroenterology 09/20/23 Philip [place] MD [address] [place] [address] 953025 Physician Ophthalmology 09/22/23 documented as of this encounter
--- OUTSIDE RECORDS SUMMARY | 2023-10-15 21:49 | XMS_ITS | Encounter Summary ---
Author Name Unknown Organization [place] Address [address] [place] [address] Care Team Providers Care Court Monitor Name Role Phone ThangKendrickDiana T [facility] Unavailable [phone] Rain Galaviz-C Unavailable Tavia Wyatt MD Unavailable Unavailable Erica Farrell APRN FLIGHT OPERATIONS DISPATCH CLERK Unavailable Rich Barrett MD Unavailable Neil Kent MD Unavailable Diana Desir [facility] Unavailable [phone] Livan Sharif MD Unavailable Catherine Cm MD Unavailable + Valery Veronica PA-C Unavailable [phone] Brea Quinn CONTRACT LEAD FLIGHT OPERATIONS DISPATCH CLERK Unavailable [phone] Brea Quinn CONTRACT LEAD FLIGHT OPERATIONS DISPATCH CLERK Unavailable Jose Francisco Johnson MD Unavailable Alfonso Renteria MD Unavailable + [phone] Esha Grimm PA-C Primary Care Provider [phone] Radha Lomeli CONTRACT LEAD FLIGHT OPERATIONS DISPATCH CLERK Unavailable FrankieJelena OD Unavailable Pao Joseph RN Unavailable Unavailable Esha Grimm PA-C Unavailable [phone] Encounter Details Date Type Department Care Team (Latest Contact Info) Description 09/07/2023 Travel Social History Tobacco Use Types Packs/Day [...] week 03/10/2023 How often do you attend [facility] or mosque services? 1 to 4 times per year 03/10/2023 Do you belong to any clubs o r organizations such as yarsanism groups, unions, fraternal or athletic groups, [...] Answer Date Recorded PHQ-2 Score 0 06/20/2023 [facility] Occupat ional Health - Occupational Stress [...] exercise at this level? 30 min 03/10/2023 [place] Depression Scale Answer Date Recorded [place] Depression Score 5 01/14/2021 Last EPDS Self [...] 10/25/2023 11:30 AM CDT Virtual Visit [facility] G[facility]ology Clinic [address] 4th [place] [phone] Nelly Mesa, RD 909 [place] [address] 11/03/2023 8:00 AM CDT Office Visit [address] [phone] Valery Veronica PA-C [address] [place] [address] 11/29/2023 8:00 AM CDT Office Visit [facility] [address] [place] [address] Esha Grimm PA-C [address] [place] [address] 01/02/2024 8:00 AM CDT Office Visit [facility] Sleep [facility] [address] [place] [phone] Lauren Claudio PA-C [address] [place] [address] Kelli Perez MD [address] [facility] 106 [place], [place] 553544 documented as of this encounter Visit Diagnoses Not on filedocumented in this encounter Additional Health Concerns Assessment Noted Time PHQ-9 Depression Total Score: 4 06/20/ 23 8:40 AM SCREEN STRETCHER documented as of this encounter Care Teams Court Monitor Relationship Specialty Start Date End Date Esha Grimm PA-C [id number] [place] [phone] PCP - General Family Medicine 05/04/23 Diana Desir, [facility] [address] [place] [address] Pharmacist Pharmacist 04/17/21 Rain Galaviz PA-C [address] [place] [address] [address] RA[address] [place] [address] Physician Dressed Poultry Grader Dermatology 04/28/21 Tavia Wyatt MD [address] [place] [address] [facility] [address] Dermatology 07/14/21 Erica Farrell APRN FLIGHT OPERATIONS DISPATCH CLERK [address] [place] [address] Nurse Practitioner Cardiovascular Disease 09/09/21 Rich Barrett MD [address] [place] [address] 209645 Physician Ophthalmology 01/21/22 Neil Kent MD [address] [place] [address] 016485 Dermatology 02/24/22 Diana Desir, [facility] [address] [place] [address] Assigned MTM Pharmacist 04/07/22 Livan Sharif MD [address] [place] [address] Cardiovascular Disease 05/14/22 Catherine Cm MD [address] [facility] [address] [place] [address] Cardiovascular Disease 07/21/22 Valery Veronica, [place] 909 [place], [place] 833845 Physician Dressed Poultry Grader Dermatology 07/21/22 Brea Quinn APRN FLIGHT OPERATIONS DISPATCH CLERK 500 [place], [place] 727455 Nurse Practitioner Dermatology 09/21/22 Brea Quinn APRN FLIGHT OPERATIONS DISPATCH CLERK 6401 [facility] [place] 365992 Assigned Surgical Provider 10/09/22 [place] [address] [place] [place] [address] Assigned Musculoskeletal Provider 10/09/22 Alfonso Renteria MD 5775 [facility] 200 [place], [place] 944606 Assigned Neuroscience Provider 04/02/23 Radha Lomeli APRN FLIGHT OPERATIONS DISPATCH CLERK 6405 [facility] [address] [place] [address] Assigned Heart and Vascular Provider 05/28/23 Jelena David OD [address] [facility] [place] [address] Ophthalmology 06/15/23 Pao Joseph, RN Personal Advocate & Liaison (PAL) Nurse 08/01/23 Esha Grimm PA-C [address] [place] [address] Assigned PCP 07/16/23 documented as of this encounter
--- OUTSIDE RECORDS SUMMARY | 2023-10-15 21:49 | XMS_ITS | Encounter Summary ---
Author Name Unknown Organization [place] Address [address] [place] [address] Care Team Providers Care Supervisor Testing Name Role Phone ThangKendrickDiana T [facility] Unavailable Rain Galaviz-C Unavailable Tavia Wyatt MD Unavailable Unavailable Erica Farrell APRN READING ASSISTANT Unavailable Rich Barrett MD Unavailable Neil Kent MD Unavailable Diana Desir [facility] Unavailable [phone] Livan Sharif MD Unavailable Catherine Cm MD Unavailable + Valery Veronica PA-C Unavailable [phone] Brea Quinn ASSOCIATE JUVENILE COURT JUDGE READING ASSISTANT Unavailable [phone] Brea Quinn ASSOCIATE JUVENILE COURT JUDGE READING ASSISTANT Unavailable Jose Francisco Johnson MD Unavailable Alfonso Renteria MD Unavailable + [phone] Esha Grimm PA-C Primary Care Provider [phone] [address] Lomeli ASSOCIATE JUVENILE [address] JUDGE READING ASSISTANT Unavailable Jelena David OD Unavailable Pao Joseph RN Unavailable Unavailable Esha Grimm PA-C Unavailable [phone] Encounter Details Date Type Department Care Team (Late st Contact Info) Description 09/06/2023 MyC Medical Advice [facility] [address] [place] [address] Esha Grimm PA-C [id number] [place] [phone] Social History Tobacco Use Types Packs/Day [...] How often do you attend chur or sabianism services? 1 to 4 times per year 03/10/2023 Do you belong to any clubs o r organizations such as mormonism groups, unions, fraternal or athletic groups, [...] Answer Date Recorded PHQ-2 Score 0 06/20/2023 [facility] [place] of Occupat ional Health - Occupational Stress [...] exercise at this level? 30 min 03/10/2023 Muir Depression Scale Answer Date Recorded Muir Depression Score 5 01/14/2021 Last EPDS Self [...] encounter Miscellaneous Notes * Telephone Encounter - Bassem Arnett RN - 09/07/2023 8:29 AM STAFF ANTISUBMARINE OFFICER Please see [employer] message in reference to lab question. Routed to PCP, Please review and advise. Thank you, Chuckie Arnett RN 09/07/2023 at 8:29 AM F ANTISUBMARINE OFFICER * Telephone Encounter - Maryjane Mccallum RN - 09/07/2023 7:44 AM STAFF ANTISUBMARINE OFFICER Routing to VJ Mccallum Registered Nurse, ANAMARIA (Patient Advocate Liaison) [facility] [phone] F ANTISUBMARINE OFFICER documented in this encounter Plan of Treatment Upcoming Encounters Date Type Department Care Team (Late st Contact Info) Description 10/25/2023 11:30 AM CDT Virtual Visit [facility] Gastroenterology [address] [place] [phone] Nelly Mesa, RD [address] [place] [address] 11/03/2023 8:00 AM CDT Office Visit [address] [address] Valery Veronica PAUcheC [address] [place] [address] 11/29/2023 8:00 AM CDT Office Visit [address] [phone] Esha Grimm PA-C [address] [place] [address] 01/02/2024 8:00 AM CDT Office Visit [facility] [address] [place] [phone] Lauren Claudio PA-C [address] [place], [place] [phone] Kelli Perez MD 606 [facility] 106 [place], [place] [phone] documented as of this encounter Visit Diagnoses Not on filedocumented in this encounter Additional Health Concerns Assessment Noted Time PHQ-9 Depression Total Score: 4 06/20/20 23 8:40 AM STAFF ANTISUBMARINE OFFICER documented as of this encounter Care Teams Supervisor Testing Relationship Specialty Start Date End Date Esha Grimm PA-C [address] [place] [address] PCP - General Family Medicine 05/04/23 Diana Desir, [facility] [address] [place] [address] Pharmacist Pharmacist 04/17/21 Rain Galaviz PA-C [address] [place] [address] [address] [place] [address] Physician Supervisor Dry Cell Assembly Dermatology 04/28/21 Tavia Wyatt MD [address] [place] [address] [address] [place] [address] Dermatology 07/14/21 Erica Farrell, ASSOCIATE JUVENILE COURT JUDGE READING ASSISTANT [address] [place], [place] [address] Nurse Practitioner Cardiovascular Disease 09/09/21 Rich Barrett MD 516 [facility]A [place], [place] 3823[address] Physician Ophthalmology 01/21/22 Neil Kent MD 500 [place], [place] 209695 Dermatology 02/24/22 Diana Desir, [facility] 3033 [place], [place] 587456 Assigned [facility] Pharmacist 04/07/22 Livan Sharif MD [address] [place] [address] Cardiovascular Disease 05/14/22 Catherine Cm MD [address] [place] [address] Cardiovascular Disease 07/21/22 Valery Veronica, PA-C 909 [place], [place] 488295 Physician Supervisor Dry Cell Assembly Dermatology 07/21/22 Brea Quinn APRN READING ASSISTANT 500 [place], [place] 7[address] Nurse Practitioner Dermatology 09/21/22 Brea Quinn APRN READING ASSISTANT 6401 [place] [address] Assigned Surgical Provider 10/09/22 [place] [address] [place] [address] [place] [address] Assigned Musculoskeletal Provider 10/09/22 Alfonso Renteria MD [address] [facility] 200 [place], [place] 747216 Assigned Neuroscience Provider 04/02/23 Radha Lomeli APRN READING ASSISTANT 6405 [facility] [address] [place] [address] Assigned Heart and Vascular Provider 05/28/23 Jelena David OD [address] [facility] [place] [address] Ophthalmology 06/15/23 Pao Joseph, VJ Personal Advocate & Liaison (PAL) Nurse 08/01/23 Esha Grimm PAUcheC [address] [place] [address] Assigned PCP 07/16/23 documented as of this encounter
--- OUTSIDE RECORDS SUMMARY | 2023-10-15 21:49 | XMS_ITS | Encounter Summary ---
Author Name Unknown Organization [place] Address [address] [place] [address] Care Team Providers Care Sock Ironer Name Role Phone ThangKendrickDiana T [facility] Unavailable Rain Galaviz-C Unavailable Tavia Wyatt MD Unavailable Unavailable Erica Farrell APRN DOUBLE CUT SAWYER Unavailable Rich Barrett MD Unavailable Neil Kent MD Unavailable Diana Desir [facility] Unavailable [phone] Livan Sharif MD Unavailable Catherine Cm MD Unavailable + Valery Veronica PA-C Unavailable [phone] Brea Quinn INSTALLATION & MAINTENANCE EXECUTIVE DOUBLE CUT SAWYER Unavailable Brea Quinn INSTALLATION & MAINTENANCE EXECUTIVE DOUBLE CUT SAWYER Unavailable Jose Francisco Johnson MD Unavailable Alfonso Renteria MD Unavailable + [phone] Esha Grimm PA-C Primary Care Provider [phone] Radha Lomeli INSTALLATION & MAINTENANCE EXECUTIVE DOUBLE CUT SAWYER Unavailable Frankie Jelena Garcia OD Unavailable Pao Joseph RN Unavailable Unavailable Esha Grimm PA-C Unavailable [phone] Valery Veronica PA-C Unavailable [phone] Rey Tay MD Unavailable Duane Rockyanne [facility] Unavailable Philip Dumont MD Unavailable [phone] Encounter Details Date Type Department Care Team (Late st Contact Info) Description 09/08/2023 MyC Medical Advice [facility] Gastroenterology Clinic [address] [place] [address] Mary Kelsey Social History Tobacco Use Types Packs/Day Years [...] often do you attend chur ch or mormonism services? 1 to 4 times per year [...] Answer Date Recorded PHQ-2 Score 0 06/20/2023 [facility] - Occupational Stress Questionnaire Answer Date [...] exercise at this level? 30 min 03/10/2023 Krypton Depression Scale Answer Date Recorded Krypton Depression Score 5 01/14/2021 Last EPDS Self [...] Description 10/25/2023 11:30 AM CDT Virtual Visit [facility] Gastroenterology Clinic [address] 4th [place] [phone] Nelly Mesa, RD [address] [place] [address] 11/03/2023 8:00 AM CDT Office Visit [address] [phone] Valery Veronica PA-C [address] [place] [address] 11/29/2023 8:00 AM CDT Office Visit [facility] [address] [place] [phone] Esha Grimm PA-C [address] [place] [phone] 01/02/2024 8:00 AM CDT Office Visit [facility] Sleep [facility] [address] [place] [phone] Lauren Claudio PA-C [address] [place], [place] [phone] Kelli Perez MD [address] [place] [address] documented as of this encounter Visit Diagnoses Not on filedocumented in this encounter Additional Health Concerns Assessment Noted Time PHQ-9 Depression Total Score: 4 06/20/20 23 8:40 AM PICK UP TRUCK DRIVER documented as of this encounter Care Teams Sock Ironer Relationship Specialty Start Date End Date Esha Grimm PA-C [address] [place] [phone] PCP - General Family Medicine 05/04/23 Diana Desir, [facility] [address] [place] [address] Pharmacist Pharmacist 04/17/21 Rain Galaviz PA-C [address] [place] [address] [address] [place] [address] Physician Rate Setter Dermatology 04/28/21 Tavia Wyatt MD [address] [place] [address] [address] [place] [address] Dermatology 07/14/21 Erica Farrell APRN DOUBLE CUT SAWYER [address] [place] [address] Nurse Practitioner Cardiovascular Disease 09/09/21 Rich Barrett MD 516 [facility] 9A [place], [place] 8[address] Physician Ophthalmology 01/21/22 Neil Kent MD 500 [place], [place] 800565 Dermatology 02/24/22 Diana Desir, [facility] 3033 [place], [place] 137706 Assigned MTM Pharmacist 04/07/22 Livan Sharif MD [address], [facility] [address] [place], [place] 6[address] Cardiovascular Disease 05/14/22 Catherine Cm MD [address] [facility] [address] [place], [place] [address] Cardiovascular Disease 07/21/22 Valery Veronica, PAUcheC 9 [place], [place] 489345 Physician Rate Setter Dermatology 07/21/22 Brea Quinn APRN DOUBLE CUT SAWYER 500 [place], [place] 550985 Nurse Practitioner Dermatology 09/21/22 Brea Quinn APRN DOUBLE CUT SAWYER [address] [place] [address] 865362 Assigned Surgical Provider 10/09/22 [place] [address] [address] [facility] 300 [place] [address] Assigned Musculoskeletal Provider 10/09/22 Alfonso Renteria MD 5775 [facility] 200 [place], [place] 231876 Assigned Neuroscience Provider 04/02/23 Radha Lomeli APRN DOUBLE CUT SAWYER [address] [place] 46[address]85 Assigned Heart and Vascular Provider 05/28/23 Jelena David OD [address] [place] [address] MD Ophthalmology 06/15/23 Pao Joseph, VJ Personal Advocate & Liaison (PAL) Nurse 08/01/23 Esha Grimm PA-C [address] [place] [phone] Assigned PCP 07/16/23 Vaelry Veronica PABaldo 909 [place], [place] 610655 Physician Rate Setter Dermatology 09/19/23 Rey Tay MD [address] [place] [address] 873065 Gastroenterology 09/20/23 Rocky Zepeda DO [address] [place] [address] 913665 Physician Gastroenterology 09/20/23 Philip Dumont MD [address] [place] [address]255 Physician Ophthalmology 09/22/23 documented as of this encounter
--- OUTSIDE RECORDS SUMMARY | 2023-10-15 21:49 | XMS_ITS | Encounter Summary ---
Author Name Unknown Organization [place] Address [address] [place] [address] Care Team Providers Care Nuclear Waste Process Operator Name Role Phone ThangKendrickDiana T [facility] Unavailable Rain Galaviz-C Unavailable Tavia Wyatt MD Unavailable Unavailable Erica Farrell APRN AIR CREW SUPERVISOR Unavailable Rich Barrett MD Unavailable Neil Kent MD Unavailable Diana Desir [facility] Unavailable [phone] Livan Sharif MD Unavailable Catherine Cm MD Unavailable + Valery Veronica PA-C Unavailable [phone] Brea Quinn SHIP LINER AIR CREW SUPERVISOR Unavailable Brea Quinn SHIP LINER AIR CREW SUPERVISOR Unavailable Jose Francisco Johnson MD Unavailable Alfonso Renteria MD Unavailable + [phone] Esha Grimm PA-C Primary Care Provider [phone] Radha Lomeli SHIP LINER AIR CREW SUPERVISOR Unavailable [phone] FrankieJelena OD Unavailable [phone] Pao Joseph RN Unavailable Unavailable Esha Grimm PA-C Unavailable [phone] Encounter Details Date Type Department Care Team (Latest Contact Info) Description 09/01/2023 Travel Social History Tobacco Use Types Packs/Day [...] you attend [facility] or jehovah's witness services? 1 to 4 times per year 03/10/2023 Do you belong to any clubs o r organizations such as spiritism groups, unions, fraternal or athletic groups, [...] Answer Date Recorded PHQ-2 Score 0 06/20/2023 [facility] [place] of Occupat ional Health - Occupational Stress [...] exercise at this level? 30 min 03/10/2023 [place]anton Depression Scale Answer Date Recorded [place]anton Depression Score 5 01/14/2021 Last EPDS Self [...] 10/25/2023 11:30 AM CDT Virtual Visit [facility] Gastroenterology Clinic [address] 4th [place] [phone] Nelly Mesa, RD 909 [place] [address] 11/03/2023 8:00 AM CDT Office Visit [address] [phone] Valery Veronica PA-C [address] [place] [address] 11/29/2023 8:00 AM CDT Office Visit [facility] [address] [place] [address] Esha Grimm PA-C [id number] [place] [address] 01/02/2024 8:00 AM CDT Office Visit [facility] Sleep 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 [address] Dermatology 07/14/21 Erica Farrell APRN AIR CREW SUPERVISOR [address] [place] [address] Nurse Practitioner Cardiovascular Disease 09/09/21 Rich Barrett MD [address] [place] [address]995 Physician Ophthalmology 01/21/22 Neil Kent MD [address] [place] [address] 545905 Dermatology 02/24/22 Diana Desir, [facility] [address] [place] [address] Assigned MTM Pharmacist 04/07/22 Livan Sharif MD [address] [place] [address] Cardiovascular Disease 05/14/22 Catherine Cm MD [address] [facility] [address] [place] [address] Cardiovascular Disease 07/21/22 Valery Veronica, [place] 909 [place], [place] [address] Physician Locomotive Crane Operator Helper Dermatology 07/21/22 Brea Quinn APRN AIR CREW SUPERVISOR 500 [place], [place] 512345 Nurse Practitioner Dermatology 09/21/22 Brea Quinn APRN AIR CREW SUPERVISOR 6401 [facility] [place] 363752 Assigned Surgical Provider 10/09/22 [place] [address] [place] [address] Assigned Musculoskeletal Provider 10/09/22 Alfonso Renteria MD 5775 [facility] 200 [place], [place] 773536 Assigned Neuroscience Provider 04/02/23 Radha Lomeli APRN AIR CREW SUPERVISOR 6405 [facility] [address] [place] [address] Assigned Heart and Vascular Provider 05/28/23 Jelena David OD [address] [place] [address] Ophthalmology 06/15/23 Pao Joseph, RN Personal Advocate & Liaison (PAL) Nurse 08/01/23 Esha Grimm PA-C [address] [place] [address] Assigned PCP 07/16/23 documented as of this encounter
--- OUTSIDE RECORDS SUMMARY | 2023-10-15 21:49 | XMS_ITS | Encounter Summary ---
Author Name Unknown Organization [facility] Address [address] [place] [address] Care Team Providers Care House Carpenter Helper Name Role Phone ThangKendrickDiana T [facility] Unavailable Rain Galaviz-C Unavailable Tavia Wyatt MD Unavailable Unavailable Erica Farrell APRN SAW SUPERINTENDENT Unavailable Rich Barrett MD Unavailable Neil Kent MD Unavailable Diana Desir [facility] Unavailable [phone] Livan Sharif MD Unavailable Catherine Cm MD Unavailable + Valery Veronica PA-C Unavailable [phone] Brea Quinn TREE FRUIT [employer] NUT FARMING SUPERVISOR SAW SUPERINTENDENT Unavailable [phone] Brea Quinn [employer]REE FRUIT [employer] NUT [employer]ARMING SUPERVISOR SAW SUPERINTENDENT Unavailable Jose Francisco Johnson MD Unavailable Alfonso Renteria MD Unavailable + [phone] Esha Grimm PA-C Primary Care Provider [phone] Radha Lomeli TREE FRUIT AND NUT FARMING SUPERVISOR SAW SUPERINTENDENT Unavailable FrankieJelena OD Unavailable Pao Joseph RN Unavailable Unavailable Esha Grimm PA-C Unavailable [phone] Reason for Visit * Auth/Cert (Routine) Specialty Diagnoses / Procedures Referred By Qian t Referred To Contact Gastroenterology Diagnoses Bloating Dysphagia, unspecified type Bloating [R14.0] Dysphagia, unspecified type [R13.10] Procedures IN UGI ENDOSCOPY DIAG W OR W/O BRUSH/WASH Esophagoscopy, gastroscopy, duodenoscopy (EGD), combined Endoscopy [address] [address] Referral ID Status Reason Start Date Expiration Date Visits Re quested Visits Authorized [id number] 1 1 Encounter Details Date Type Department Care Team (Latest Contact Info) Description 09/12/2023 12:29 PM DINKEY LOCOMOTIVE ENGINEER - 09/12/2023 2:51 PM DINKEY LOCOMOTIVE ENGINEER Hospital Encounter [facility] Endoscopy [address] [address] Tyshawn Sprague MD [address] [place] [address] Discharge Disposition: Home or Self Care Social History Tobacco Use Types Packs/Day Years [...] often do you attend chur ch or yazidi services? 1 to 4 times per year 03/10/2023 Do you belong to any clubs o r organizations such as gnosticism groups, unions, fraternal or athletic groups, [...] PHQ-2 Score 0 06/20/2023 [facility]ational Stress Questionnaire Answer [...] exercise at this level? 30 min 03/10/2023 [place] Depression Scale Answer Date Recorded [place] Depression Score 5 01/14/2021 Last EPDS Self [...] Sign Reading Time Taken Comments Blood Pressure 93/58 09/12/2023 2:20 PM DINKEY LOCOMOTIVE ENGINEER Pulse 67 09/12/2023 2:30 PM DINKEY LOCOMOTIVE ENGINEER Temperature - - Respiratory Rate 29 09/12/2023 2:30 PM DINKEY LOCOMOTIVE ENGINEER Oxygen Saturation 96% 09/12/2023 2:30 PM DINKEY LOCOMOTIVE ENGINEER Inhaled Oxygen Concentration - - Weight - [...] MD - 09/12/2023 1:07 PM CST Kim Johnson [id number] female 23 year old Reason for procedure/surgery: [...] Ablation SVT; Surgeon: Galo Burrell MD; Location: [facility] CARDIAC METER INSPECTOR ESOPHAGOSCOPY, GASTROSCOPY, DUODENOSCOPY (EGD), COMBINED N/A 06/26/2021 [...] Tyshawn Sprague MD 09/12/2023 PCP: Esha Grimm EY LOCOMOTIVE ENGINEER documented in this encounter Plan of Treatment Upcoming Encounters Date Type Department Care Team (Late st Contact Info) Description 10/25/2023 11:30 AM CDT Virtual Visit [facility] Gastroenterology Clinic [address] [address] Nelly Mesa, RD [address] [place] [address] 11/03/2023 8:00 AM CDT Office Visit [facility] [address] [place] [address] Valery Veronica PA-C [address] [place] [address] 11/29/2023 8:00 AM CDT Office Visit [facility] [address] [place] [address] Esha Grimm PA-C [address] [place] [address] 01/02/2024 8:00 AM CDT Office Visit [facility] [address] [place] [phone] See Claudio PA-C [address] [place] [address] Kelli Perez MD [address] [facility] [address] [place], [place] [address] documented as of this encounter Procedures Procedure Name Priority Date/Time Associated Diagnosis Comments SURGICAL PATHOLOGY EXAM Routine 09/12/2023 1:41 PM DINKEY LOCOMOTIVE ENGINEER ESOPHAGOGASTRODUODE NOSCOPY, WITH BIOPSY 09/12/2023 1:10 PM DINKEY LOCOMOTIVE ENGINEER Bloating Dysphagia, unspecified type UPPER GI ENDOSCOPY Routine 09/12/2023 1: 02 PM DINKEY LOCOMOTIVE ENGINEER documented in this encounter Results * Surgical Pathology Exam (09/12/2023 1:41 PM DINKEY LOCOMOTIVE ENGINEER) Case Report Surgical Pathology Report ? Case: [id number] ? Authorizing Provider: ??Tyshawn Sprague MD ?Collected: ? 09/12/2023 01:41 PM ? Ordering Location: ? [facility] ?Received: ?09/12/2023 03:09 PM ? [facility] ? Pathologist: ? Lázaro Jordan MD ? Specimens: ?? A) - Small Intestine, Duodenum, gastric evaluate for H. pylori ? B) - Esophagus, Distal, evaluate for eosinophilic esophagitis ? C) - Esophagus, Proximal, evaluate for eosinophilic esophagitis ? 09/14/2023 7:16 AM DINKEY LOCOMOTIVE ENGINEER LABORATORY Final Diagnosis A(1). Stomach, biopsy: - [...] for dysplasia or malignancy 09/14/2023 7:16 AM DINKEY LOCOMOTIVE ENGINEER LABORATORY Comment Prominent intra-epithelial eosinophilia (approximately 40 eosinophils per high-power field in the distal esophagus, and 25 eosinophils per high-power field in the proximal esophagus) is identified. In the appropriate clinical and endoscopic setting, findings are compatible with eosinophilic esophagitis. 09/14/2023 7:16 AM [facility] Clinical Information Procedure: Esophagoscopy, gastroscopy, duodenoscopy (EGD), combined Pre-op Diagnosis: Bloating [R14.0] Dysphagia, unspecified type [R13.10] Post-op Diagnosis: R14.0 - Bloating [ICD-10-CM] R13.10 - Dysphagia, unspecified type [ICD-10-CM] 09/14/2023 7:16 AM [facility] Gross Description A(1). Small Intestine, Duodenum, [...] cm. Entirely submitted in 1 cassette. (Margret David, Biopsy Tech) 09/14/2023 7:16 AM DINKEY LOCOMOTIVE ENGINEER LABORATORY Microscopic Description Microscopic examination was performed. 09/14/2023 7:16 AM DINKEY LOCOMOTIVE ENGINEER LABORATORY Performing Labs The technical component of this testing was completed at [facility] 09/14/2023 7:16 AM DINKEY LOCOMOTIVE ENGINEER LABORATORY Case Images 09/14/2023 7:16 AM DINKEY LOCOMOTIVE ENGINEER LABORATORY Biopsy DUODENAL STRUCTURE / Unknown 09/12/2023 1:41 PM DINKEY LOCOMOTIVE ENGINEER 09/12/2023 3:09 PM DINKEY LOCOMOTIVE ENGINEER Specimen from unspecified body site obtained by biopsy (specimen) STRUCTURE OF LOWER THIRD OF ESOPHAGUS / Unknown 09/12/2023 1:42 PM DINKEY LOCOMOTIVE ENGINEER 09/12/2023 3:09 PM DINKEY LOCOMOTIVE ENGINEER Specimen from unspecified body site obtained by biopsy (specimen) STRUCTURE OF UPPER THIRD OF ESOPHAGUS / Unknown 09/12/2023 1:44 PM DINKEY LOCOMOTIVE ENGINEER 09/12/2023 3:09 PM DINKEY LOCOMOTIVE ENGINEER Tyshawn BAKER - [facility] [address] [facility] (1st floor, no room number) [place] [address], [facility] [phone] LABORATORY [facility] [address] 1st floor, [address] [place] [address], [place] [phone] * UPPER GI ENDOSCOPY (09/12/2023 1:02 PM DINKEY LOCOMOTIVE ENGINEER) Upper GI Endoscopy [facility] [address] ??[place], [place] ??[address] ___ Patient Name: Kim Johnson ?Procedure Date: 09/12/2023 1:02 PM ? Date of : 2000 ? Admit Type: Outpatient Age: 23 ? Room: [place] [address] Note Status: Finalized ?Attending MD: TYSHAWN SPRAGUE MD, Instrument Name: 505 [id number] Gastroscope ___ Procedure: ?Upper GI endoscopy Indications: ?Follow-up of gastro-esophageal reflux disease, ?Unexplained chest pain Providers: ?TYSHAWN SPRAGUE MD, Jess Bucio, RN Referring MD: ? SEE CLAUDIO Medicines: [...] Procedure Code(s): ? --- Professional --- ? 60641, Esophagogastroduode noscopy, flexible, transoral; with biopsy, ? single or multiple Diagnosis Code(s): ? --- Professional --- ? K22.89, Other specified disease of esophagus ? K44.9, Diaphragmatic hernia without obstruction or gangrene ? K29.70, Gastritis, unspecified, without bleeding ? K21.9, Gastro-esophageal reflux disease without esophagitis ? R07.9, Chest pain, unspecified CPT copyright 2021 [employer]. All rights reserved. The codes documented in this report are preliminary and upon director enterprise data architecture review may be revised to meet current [...] 1:36:53 PM RADIOLOGY RESULTS 09/12/2023 1:02 PM DINKEY LOCOMOTIVE ENGINEER See Claudio PA-C PROCEDURES RADIOLOGY RESULTS documented in this encounter Visit Diagnoses Not on filedocumented in this encounter Administered Medications Inactive Administered Medications - up to 3 most recent administrations Medication Order MAR Action Action Date Dose Rate Site fentaNYL (PF) (SUBLIMAZE) injection Intravenous, PRN, Administer over 3-5 Minutes, Starting on 09/12/23 at 1326, Intra-procedure $Given 09/12/2023 1:26 PM DINKEY LOCOMOTIVE ENGINEER 100 mcg midazolam (VERSED) injection Intravenous, Administer over 2 Minutes, PRN, Starting on Tue09/12/23 at 1326, Intra-procedure $Given 09/12/2023 1:28 PM DINKEY LOCOMOTIVE ENGINEER 2 mg $Given 09/12/2023 1:26 PM DINKEY LOCOMOTIVE ENGINEER 2 mg documented in this encounter Active and Recently Administered Medications Times are shown in DINKEY LOCOMOTIVE ENGINEER. PRN Medication Order 09/10/2023 09/11/2023 09/12/2023 fentaNYL [...] Total Score: 4 06/20/20 23 8:40 AM DINKEY LOCOMOTIVE ENGINEER documented as of this encounter Care Teams House Carpenter Helper Relationship Specialty Start Date End Date Esha Grimm PA-C [address] [place] [address] PCP - General Family Medicine 05/04/23 Diana Desir [facility] [address] [place] [address] Pharmacist Pharmacist 04/17/21 Rain Galaviz PA-C [address] [place] [address] [address] [place] [address] Physician Station Master Dermatology 04/28/21 Tavia Wyatt MD [address] [place] [address] [address] [address] Dermatology 07/14/21 Erica Farrell APRN SAW SUPERINTENDENT [address] [place] [address] Nurse Practitioner Cardiovascular Disease 09/09/21 Rich Barrett MD [address] [place] [address]395 Physician Ophthalmology 01/21/22 Neil Kent MD [address] [place] [address] 264195 Dermatology 02/24/22 Diana Desir, [facility] [address] [place] [address]896 Assigned [place] Pharmacist 04/07/22 Livan Sharif MD [address], [facility] [place] [address] Cardiovascular Disease 05/14/22 Catherine Cm MD [address] [facility] [place] [address] Cardiovascular Disease 07/21/22 Valery Veronica, PA-C [address] [place] [address]90235 Physician Station Master Dermatology 07/21/22 Brea Quinn APRN SAW SUPERINTENDENT [address] [place], [place] [address] Nurse Practitioner Dermatology 09/21/22 Brea Quinn APRN SAW SUPERINTENDENT [address] [place] [address] Assigned Surgical Provider 10/09/22 [place] [address] [address] [facility] [address] [place] [address] Assigned Musculoskeletal Provider 10/09/22 Alfonso Renteria MD [address] [facility] 200 [place], [place] [address] Assigned Neuroscience Provider 04/02/23 Radha Lomeli APRN SAW SUPERINTENDENT [address] [id number] [place] [address] Assigned Heart and Vascular Provider 05/28/23 Jelena David OD [address] [facility] [address] [id number] Ophthalmology 06/15/23 Pao Joseph, VJ Personal Advocate & Liaison (PAL) Nurse 08/01/23 Esha Grimm, PA-C [address] [place] [phone] Assigned PCP 07/16/23 documented as of this encounter
--- OUTSIDE RECORDS SUMMARY | 2023-10-15 21:49 | XMS_ITS | Encounter Summary ---
Author Name Unknown Organization [facility] Address [address] [place] [address] Care Team Providers Care Aviation Operations Specialist Name Role Phone ThangKendrickDiana T [facility] Unavailable Rain Galaviz-C Unavailable Tavia Wyatt MD Unavailable Unavailable Erica Farrell APRN HEARING SPECIALIST Unavailable Rich Barrett MD Unavailable Neil Kent MD Unavailable Diana Desir [facility] Unavailable [phone] Livan Sharif MD Unavailable Catherine Cm MD Unavailable + Valery Veronica PA-C Unavailable [phone] Brea Quinn LIQUID CENTER ASSEMBLER HEARING SPECIALIST Unavailable Brea Quinn LIQUID CENTER ASSEMBLER HEARING SPECIALIST Unavailable Jose Francisco Johnson MD Unavailable Alfonso Renteria MD Unavailable + [phone] Esha Grimm PA-C Primary Care Provider [phone] Radha Lomeli LIQUID CENTER ASSEMBLER HEARING SPECIALIST Unavailable Frankie Jelena Templetone OD Unavailable Pao Joseph RN Unavailable Unavailable Esha Grimm PA-C Unavailable [phone] Valery Veronica PA-C Unavailable Rey Tay MD Unavailable Duane Rockyanne STEVENS Unavailable Philip Dumont MD Unavailable [phone] Encounter Details Date Type Department Care Team (Late st Contact Info) Description 09/01/2023 [facility] [address] [address] Diana Desir, [facility] [address] [place] [address] Social History Tobacco Use Types Packs/Day Years [...] How often do you attend chur or anabaptism services? 1 to 4 times per year 03/10/2023 Do you belong to any clubs o r organizations such as religious groups, unions, fraternal or athletic groups, [...] Answer Date Recorded PHQ-2 Score 0 06/20/2023 [facility] - Occupational [...] exercise at this level? 30 min 03/10/2023 [place] Depression Scale Answer Date Recorded [place] Depression Score 5 01/14/2021 Last EPDS Self [...] Virtual Visit [facility] Gastroenterology Clinic [address] [place] [phone] [address], [address] [place] [address] 11/03/2023 8:00 AM CDT Office Visit [facility] [address] [place] [phone] Valery Veronica PA-C [address] [place] [address] 11/29/2023 8:00 AM CDT Office Visit [facility] [address] [place] [phone] Esha Grimm PA-C [address] [place] [address] 01/02/2024 8:00 AM CDT Office Visit [facility] [place] [address] [place] [phone] Lauren Claudio PA-C [address] [place], [place] [phone] Kelli Perez MD [address] [place], [place] [address] documented as of this encounter Visit Diagnoses Not on filedocumented in this encounter Additional Health Concerns Assessment Noted Time PHQ-9 Depression Total Score: 4 06/20/20 23 8:40 AM MASONRY INSTRUCTOR documented as of this encounter Care Teams Aviation Operations Specialist Relationship Specialty Start Date End Date Esha Grimm PA-C [address] [place] [address] PCP - General Family Medicine 05/04/23 Diana Desir, [facility] [address] [place], [place] [address] Pharmacist Pharmacist 04/17/21 Rain Galaviz PA-C [address] [place] [address] [address] [address] Physician Shoe Patternmaker Dermatology 04/28/21 Tavia Wyatt MD [address] [place] [address] [address] [address] Dermatology 07/14/21 Erica Farrell APRN HEARING SPECIALIST [address] [facility] [address] [place], [place] [address] Nurse Practitioner Cardiovascular Disease 09/09/21 Rich Barrett MD [address] [facility], [facility] [address] [place], [place] [address] Physician Ophthalmology 01/21/22 Neil Kent MD 500 [place] [address] Dermatology 02/24/22 [facility] [address] [place] [address] Assigned [place] Pharmacist 04/07/22 Livan Sharif MD [address] [facility] [address] [place] [address] Cardiovascular Disease 05/14/22 Catherine Cm MD [address] 7624[address] Cardiovascular Disease 07/21/22 Valery Veronica, PA-C [address] [place], [place] [address] Physician Shoe Patternmaker Dermatology 07/21/22 Brea Quinn APRN HEARING SPECIALIST 500 [place] [address] Nurse Practitioner Dermatology 09/21/22 Brea Quinn APRN HEARING SPECIALIST [address] [place] [address] Assigned Surgical Provider 10/09/22 [place] [address] [address] Assigned Musculoskeletal Provider 10/09/22 Alfonso Renteria MD 5775 [facility] 200 [place] [address] Assigned Neuroscience Provider 04/02/23 Radha Lomeli APRN HEARING SPECIALIST [address] [place] [address] Assigned Heart and Vascular Provider 05/28/23 Jelena David OD [address] [facility] [place] [address] MD Ophthalmology 06/15/23 Pao Joseph, RN Personal Advocate & Liaison (PAL) Nurse 08/01/23 Esha Grimm PA-C [address] [place] [address] Assigned PCP 07/16/23 Valery Veronica PA-C [address] [place] [address] Physician Shoe Patternmaker Dermatology 09/19/23 Rey Tay MD [address] [place] [address] MD Gastroenterology 09/20/23 Rocky Zepeda DO [address] [place] [address] Physician Gastroenterology 09/20/23 Philip Dumont MD [address] [place] [address] 996205 Physician Ophthalmology 09/22/23 documented as of this encounter
--- OUTSIDE RECORDS SUMMARY | 2023-10-15 21:49 | XMS_ITS | Encounter Summary ---
Author Name Unknown Organization [facility] Address [address] [place] [address] Care Team Providers Care Epic [facility] Name Role Phone ThangKendrickDiana T [facility] Unavailable Rain Galaviz-C Unavailable Tavia Wyatt MD Unavailable Unavailable Erica Farrell APRN SUBMARINE WORKER Unavailable Rich Barrett MD Unavailable Neil Kent MD Unavailable Diana Desir [facility] Unavailable [phone] Livan Sharif MD Unavailable Catherine Cm MD Unavailable + Valery Veronica PA-C Unavailable [phone] Brea Quinn RESEARCH MANUFACTURING OPERATOR SUBMARINE WORKER Unavailable [phone] Brea Quinn RESEARCH MANUFACTURING OPERATOR SUBMARINE WORKER Unavailable Jose Francisco Johnson MD Unavailable Alfonso Renteria MD Unavailable + [phone] Esha Grimm PA-C Primary Care Provider [phone] Radha Lomeli RESEARCH MANUFACTURING OPERATOR SUBMARINE WORKER Unavailable FrankieJelena OD Unavailable [phone] Pao Joseph RN Unavailable Unavailable Esha Grimm PAUcheC Unavailable [phone] Reason for Visit * Reason Comments Chest Pain Encounter Details Date Type Department Care Team (Late st Contact Info) Description 09/07/2023 6:28 PM IT TECHNICAL SUPPORT SPECIALIST - 09/07/2023 9:49 PM IT TECHNICAL SUPPORT SPECIALIST Emergency [facility] Emergency Dept [address] [place] [phone] Brea Meyer MD [facility] [address] [place], [place] [address] Chest pain, unspecified type Discharge Disposition: Home or Self Care Social [...] How often do you attend chur or hindu services? 1 to 4 times per year 03/10/2023 Do you belong to any clubs o r organizations such as sikh groups, unions, fraternal or athletic groups, [...] Answer Date Recorded PHQ-2 Score 0 06/20/2023 [facility] - Occupational Stress Questionnaire Answer [...] exercise at this level? 30 min 03/10/2023 [place] Depression Scale Answer Date Recorded [place] Depression Score 5 01/14/2021 Last EPDS Self [...] Sign Reading Time Taken Comments Blood Pressure 106/75 09/07/2023 9:48 PM IT TECHNICAL SUPPORT SPECIALIST Pulse 79 09/07/2023 9:48 PM IT TECHNICAL SUPPORT SPECIALIST Temperature 36.7 ??C (98 ??F) 09/07/2023 6:18 PM IT TECHNICAL SUPPORT SPECIALIST Respiratory Rate 18 09/07/2023 9:48 PM IT TECHNICAL SUPPORT SPECIALIST Oxygen Saturation 100% 09/07/2023 9:48 PM IT TECHNICAL SUPPORT SPECIALIST Inhaled Oxygen Concentration - - Weight 84.6 kg (186 lb 8.2 oz) 09/07/2023 6:20 P M IT TECHNICAL SUPPORT SPECIALIST Height 167.6 cm (5' 6) 09/07/2023 6:20 PM IT TECHNICAL SUPPORT SPECIALIST Body Mass Index 30.1 09/07/2023 6:20 PM IT TECHNICAL SUPPORT SPECIALIST documented in this encounter Discharge Instructions * Discharge Instructions* Brea Meyer MD - 09/07/2023 9:02 PM IT TECHNICAL SUPPORT SPECIALIST Please call your GI doctor to see if you can restart your omeprazole. Discharge Instructions Chest Pain You have been seen today for chest pain or discomfort. At this time, your provider has found no signs that your chest pain is due to a serious or life- threatening condition, (or you have declined more testing and/or admission to the hospital). However, sometimes there is a serious problem that doesnot show up right away. Your evaluation today [...] if there is anything that worries you. TECHNICAL SUPPORT SPECIALIST documented in this encounter Medications at Time [...] healed then stop 80 g 2 10/01/2022 metroNIDAZOLE (FLAGYL) 500 MG tabletIndications:Addi terial vaginosis Take 1 tablet (500 mg) by mouth 2 times daily for 7 days 14 tablet 0 09/02/2023 09/09/2023 omeprazole (PRILOSEC) [address] capsuleIndications:Ep igastric pain Take 1 capsule (40 mg) by mouth daily 90 capsule 3 09/07/2022 09/16/2023 PARoxetine (PAXIL) 40 MG tablet Take 40 mg by mouth every morning 0 09/21/2023 documented as of this encounter ED Notes * America Vasquez RN - 09/07/2023 6:17 PM CST Pt states she was driving when she started having chest tightness and dizziness. She comes in for evaluation. Pt has a hx of SVT but she states it did not feel like that. She states she also has sometingling down her left arm Triage Assessment (Adult) Row Name 09/07/231816 Triage Assessment Airway WDL WDL Respiratory WDL Respiratory WDL WDL Skin Circulation/Temperature WDL Skin Circulation/Temperature WDL WDL Cardiac WDL Cardiac WDL X;chest pain Chest Pain Assessment Character squeezing;tightness Peripheral/Neurovascular WDL Peripheral Neurovascular WDL WDL Cognitive/Neuro/Behavioral WDL Cognitive/Neuro/Behavioral WDL WDL TECHNICAL SUPPORT SPECIALIST * Brea Meyer MD - 09/07/2023 6:08 PM CST History Chief Complaint: Chest Pain The history is provided by the patient. Kim Johnson is a 23 year old female with history of SVT and an ablation 2 years ago who presentswith chest pain. 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 She notes a few sharp chest pains that have since resolved, as well as radiation to her upper abdomen. She endorses nausea and shortness of breath. Denies vomiting. Patient notes extensive family and personal history of heart problems. No personal history of stents or blood clots. Independent Historian: None - Patient Only Review of External Notes: Patient has a care plan. Patient has a history of presenting with chest pain. Recommendation of limiting D-dimer, CT scans, admissions for chest pain. Has a history of SVT. Medications: Mirena Lorazepam Metoprolol Metronidazole Omeprazole Paroxetine Past Medical History: Anxiety Iron deficiency anemia Kidney infection Vesicoureteral reflux GERD SVT Depression Seizure Past Surgical History: Kidney surgery Ablation EGD Physical Exam Patient Vitals for the past 24 hrs: BP Temp Temp src Pulse Resp SpO2 Height Weight 09/07/23 1820 -- -- -- -- -- -- 1.676 m (5' 6) 84.6 kg (186 lb 8.2 oz) 09/07/23 1818 120/77 98 ??F (36.7 ??C) Temporal 78 16 100 % -- -- Physical Exam General: Well-nourished, resting comfortably when I enter the room Eyes: Pupils equal, conjunctivae pink no scleral icterus or conjunctival injection ENT: Moist mucus membranes Respiratory: Lungs clear to auscultation bilaterally, no crackles/rubs/wheezes. Good air movement CV: Normal rate and rhythm, no murmurs GI: Abdomen soft and non-distended. No tenderness, guarding or rebound Skin: Warm, dry. No rashes or petechiae Musculoskeletal: No peripheral edema or calf tenderness Neuro: Alert and oriented to person/place/time Psychiatric: Normal affect Emergency Department Course ECG ECG taken at 1814, [place] [address] Normal sinus rhythm Nonspecific ST abnormality Abnormal ECG Rate 82 bpm. AK interval 164 ms. QRS duration 86 ms. QT/QTc 382/446 ms. P-R-T axes 50 65 47. Laboratory: Labs Ordered and Resulted from Time of ED Arrival to Time of ED Departure CBC WITH PLATELETS AND DIFFERENTIAL - Abnormal Result Value WBC Count 5.7 RBC Count 5.11 Hemoglobin 13.4 Hematocrit 41.3 MCV 81 MCH 26.2 (*) MCHC 32.4 RDW 12.6 Platelet Count 233 % Neutrophils 43 % Lymphocytes 45 % Monocytes 6 % Eosinophils 6 % Basophils 0 % Immature Granulocytes 0 NRBCs per 100 WBC 0 Absolute Neutrophils 2.5 Absolute Lymphocytes 2.5 Absolute Monocytes 0.3 Absolute Eosinophils 0.4 Absolute Basophils 0.0 Absolute Immature Granulocytes 0.0 Absolute NRBCs 0.0 BASIC METABOLIC PANEL - Normal Sodium 138 Potassium 3.7 Chloride 100 Carbon Dioxide (CO2) 26 Anion Gap 12 Urea Nitrogen 12.9 Creatinine 0.73 GFR Estimate >90 Calcium 9.5 Glucose 90 TROPONIN T, HIGH SENSITIVITY - Normal Troponin T, High Sensitivity <6 TROPONIN T, HIGH SENSITIVITY Emergency Department Course & Assessments: Interventions: Medications alum & mag hydroxide-simethicone (MAALOX) suspension 15 mL (has no administration in time range) aspirin (ASA) tablet 325 mg (325 mg Oral $Given 09/07/231851) ondansetron (ZOFRAN ODT) ODT tab 4 mg (4 mg Oral $Given 09/07/231851) Assessments: 1830 I obtained history and examined the patient as noted above. 2024 I rechecked and updated the patient. Independent Interpretation (X-rays, CTs, rhythm strip): None Consultations/Discussion of Management or Tests: None Social Determinants of Health affecting care: None Disposition: The patient was discharged. Impression & Plan Medical Decision Makin-year-old female with a history of chest pain, SVT, anxiety, depression presents emergency department with a complaint of chest pain. Patient reports that her chest pain started today 30 minutes prior to arrival to the emergency department. She states that it radiates to her left arm. On exam patient is not in any acute distress. She is PERC negative, she is not tachycardic, hypoxic, tachypneic. I have low suspicion for PE. Lung sounds are clear, she has not had any fevers, cough,congestion. I have low suspicion for pneumonia. Patient's workup is overall reassuring, no signs ofACS. She is not anemic. Patient does report that she was supposed to get an upper endoscopy tomorrow, and had stopped her omeprazole for the exam. Patient is given a GI cocktail. She is also given Zofran and aspirin. Patient is feeling a little bit better. I have a feeling this pain is from acid reflux from her not taking her omeprazole. Patient will follow-up with her hi lo driver as well as her GI doctor. Patient is discharged home. Diagnosis: ICD-10-CM 1. Chest pain, unspecified type R07.9 Discharge Medications: Discharge Medication List as of 09/07/2023 9:45 PM Scribe Disclosure: I, Manuel Levi, am serving as a scribe at 6:52 PM on 09/07/2023 to document services personally performed by Brea Meyer MD based on my observations and the provider's statements to me. 09/07/2023 Brea Meyer MD Richardson, Elizabeth, MD 09/08/23 0025 TECHNICAL SUPPORT SPECIALIST documented in this encounter Plan of Treatment Upcoming Encounters Date Type Department Care Team (Late st Contact Info) Description 10/25/2023 11:30 AM CDT Virtual Visit [facility] [address] [phone] [place] [place], RD [address] [place] [address] 11/03/2023 8:00 AM CDT Office Visit [address] [phone] Valery Veronica, PAUcheC [address] [place] [address] 11/29/2023 8:00 AM CDT Office Visit [address] [place] [phone] Esha Grimm PA-C [address] [place] [address] 01/02/2024 8:00 AM CDT Office Visit [facility] [address] [place] [phone] Lauren Claudio PA-C [address] [place] [address] Kelli Perez MD [address] [place], [place] [address] documented as of this encounter Procedures Procedure Name Priority Date/Time Associated Diagnosis Comments TROPONIN T, HIGH SENSITIVITY STAT 09/07/2023 8:49 PM IT TECHNICAL SUPPORT SPECIALIST EXTRA TUBE STAT 09/07/2023 6:59 PM IT TECHNICAL SUPPORT SPECIALIST EXTRA PURPLE TOP TUBE STAT 09/07/2023 6:59 PM IT TECHNICAL SUPPORT SPECIALIST EXTRA RED TOP TUBE STAT 09/07/2023 6: 59 PM IT TECHNICAL SUPPORT SPECIALIST CBC WITH PLATELETS AND DIFFERENTIAL STAT 09/07/2023 6:59 PM IT TECHNICAL SUPPORT SPECIALIST TROPONIN T, HIGH SENSITIVITY STAT 09/07/2023 6:59 PM IT TECHNICAL SUPPORT SPECIALIST CBC WITH PLATELETS & DIFFERENTIAL STAT 09/07/2023 6:59 PM IT TECHNICAL SUPPORT SPECIALIST BASIC METABOLIC PANEL STAT 09/07/2023 6:59 PM IT TECHNICAL SUPPORT SPECIALIST EKG 12-LEAD, TRACING ONLY STAT 09/07/2023 6:14 PM IT TECHNICAL SUPPORT SPECIALIST documented in this encounter Results * Troponin T, High Sensitivity (now) (09/07/2023 8:49 PM IT TECHNICAL SUPPORT SPECIALIST) Troponin T, High Sensitivity <6 <=14 ng/L 09/07/2023 9:23 PM IT TECHNICAL SUPPORT SPECIALIST LABORATORY Comment: Either a High Sensitivity Troponin [...] Unknown Venipuncture / Unknown 09/07/2023 8:49 PM IT TECHNICAL SUPPORT SPECIALIST 09/07/2023 8:53 PM IT TECHNICAL SUPPORT SPECIALIST Brea Meyer MD LAB - BLOOD DONYA HERRERA [facility] Acute Care Lab [address] Lab (1st floor, no room number) [place] [address], [facility] [phone] * Extra Purple Top Tube (09/07/2023 6:59 PM IT TECHNICAL SUPPORT SPECIALIST) [facility] Hold Specimen JIC 09/07/2023 8:07 PM IT TECHNICAL SUPPORT SPECIALIST LABORATORY Blood STRUCTURE OF LEFT UPPER LIMB / Unknown Venipuncture / Unknown 09/07/2023 6:59 PM IT TECHNICAL SUPPORT SPECIALIST 09/07/2023 7:05 PM IT TECHNICAL SUPPORT SPECIALIST Brea Meyer MD LAB - BLOOD DONYA HERRERA [facility] Lab [address] Lab (1st floor, no room number) [place] [address], [facility] [phone] * Extra Red Top Tube (09/07/2023 6:59 PM IT TECHNICAL SUPPORT SPECIALIST) Hold Specimen [facility] 09/07/2023 8:07 PM IT TECHNICAL SUPPORT SPECIALIST [facility] LABORATORY Blood STRUCTURE OF LEFT UPPER LIMB / Unknown Venipuncture / Unknown 09/07/2023 6:59 PM IT TECHNICAL SUPPORT SPECIALIST 09/07/2023 7:05 PM IT TECHNICAL SUPPORT SPECIALIST Brea Meyer MD LAB - BLOOD DONYA HERRERA [facility] LAB[facility] Acute Care Lab [address] Lab (1st floor, no room number) [place] [address] [phone] * (ABNORMAL) CBC with platelets and differential (09/07/2023 6:59 PM IT TECHNICAL SUPPORT SPECIALIST) WBC Count 5.7 4.0 - 11.0 10e3/uL 09/07/2023 7:08 PM IT TECHNICAL SUPPORT SPECIALIST [facility] RBC Count 5.11 3.80 - 5.20 10e6/uL 09/07/2023 7:08 PM IT TECHNICAL SUPPORT SPECIALIST [facility] Hemoglobin 13.4 11.7 - 15.7 g/dL 09/07/2023 7:08 PM IT TECHNICAL SUPPORT SPECIALIST [facility] Hematocrit 41.3 35.0 - 47.0 % 09/07/2023 7:08 PM IT TECHNICAL SUPPORT SPECIALIST [facility] MCV 81 78 - 100 fL 09/07/2023 7:08 PM IT TECHNICAL SUPPORT SPECIALIST [facility] MCH 26.2(L) 26.5 - 33.0 pg 09/07/2023 7:08 PM IT TECHNICAL SUPPORT SPECIALIST [facility] MCHC 32.4 31.5 - 36.5 g/dL 09/07/2023 7:08 PM IT TECHNICAL SUPPORT SPECIALIST [facility] RDW 12.6 10.0 - 15.0 % 09/07/2023 7:08 PM IT TECHNICAL SUPPORT SPECIALIST [facility] Platelet Count 233 150 - 450 10e3/uL 09/07/2023 7:08 PM IT TECHNICAL SUPPORT SPECIALIST [facility] % Neutrophils 43 % 09/07/2023 7:08 PM IT TECHNICAL SUPPORT SPECIALIST [facility] % Lymphocytes 45 % 09/07/2023 7:08 PM IT TECHNICAL SUPPORT SPECIALIST [facility] % Monocytes 6 % 09/07/2023 7:08 PM IT TECHNICAL SUPPORT SPECIALIST [facility] % Eosinophils 6 % 09/07/2023 7:08 PM IT TECHNICAL SUPPORT SPECIALIST LABORATORY % Basophils 0 % 09/07/2023 7:08 PM IT TECHNICAL SUPPORT SPECIALIST LABORATORY % Immature Granulocytes 0 % 09/07/2023 7:08 PM IT TECHNICAL SUPPORT SPECIALIST LABORATORY NRBCs per 100 WBC 0 <1 /100 024 7:08 PM IT TECHNICAL SUPPORT SPECIALIST LABORATORY Absolute Neutrophils 2.5 1.6 - 8.3 10e3/uL 09/07/2023 7:08 PM IT TECHNICAL SUPPORT SPECIALIST LABORATORY Absolute Lymphocytes 2.5 0.8 - 5.3 10e3/uL 09/07/2023 7:08 PM IT TECHNICAL SUPPORT SPECIALIST LABORATORY Absolute Monocytes 0.3 0.0 - 1.3 10e3/uL 09/07/2023 7:08 PM IT TECHNICAL SUPPORT SPECIALIST LABORATORY Absolute Eosinophils 0.4 0.0 - 0.7 10e3/uL 09/07/2023 7:08 PM IT TECHNICAL SUPPORT SPECIALIST LABORATORY Absolute Basophils 0.0 0.0 - 0.2 10e3/uL 09/07/2023 7:08 PM IT TECHNICAL SUPPORT SPECIALIST LABORATORY Absolute Immature Granulocytes 0.0 <=0.4 10e3/uL 09/07/2023 7:08 PM IT TECHNICAL SUPPORT SPECIALIST LABORATORY Absolute NRBCs 0.0 10e3/uL 09/07/2023 7:08 PM IT TECHNICAL SUPPORT SPECIALIST LABORATORY Blood STRUCTURE OF LEFT UPPER LIMB / Unknown Venipuncture / Unknown 09/07/2023 6:59 PM IT TECHNICAL SUPPORT SPECIALIST 09/07/2023 7:05 PM IT TECHNICAL SUPPORT SPECIALIST Brea Meyer MD LAB - BLOOD DONYA HERRERA [facility] Organization Address City/State/ZIP Co de Phone Number LABORATORY [facility] Acute Care Lab [address] [facility] Lab (1st floor, no room number) [place] [address], [facility] [phone] * Troponin T, High Sensitivity (09/07/2023 6:59 PM IT TECHNICAL SUPPORT SPECIALIST) Pathologist [facility] Troponin T, High Sensitivity <6 <=14 ng/L 09/07/2023 7:27 PM IT TECHNICAL SUPPORT SPECIALIST LABORATORY Comment: Either a High Sensitivity Troponin [...] urgent outpatient provocative testing. Blood STRUCTURE OF LEFT UPPER LIMB / Unknown Venipuncture / Unknown 09/07/2023 6:59 PM IT TECHNICAL SUPPORT SPECIALIST 09/07/2023 7:05 PM IT TECHNICAL SUPPORT SPECIALIST Brea Meyer MD LAB - BLOOD DONYA HERRERA [facility] Organization Address City/State/ZIP Co de Phone Number LABORATORY [facility] Acute Care Lab [address] [facility] Lab (1st floor, no room number) [place] [address], [facility] [phone] * Basic metabolic panel (09/07/2023 6:59 PM IT TECHNICAL SUPPORT SPECIALIST) Sodium 138 135 - 145 mmol/L 09/07/2023 7:27 PM [facility] Comment:Reference intervals for this test were updated on 04/05/2023 to more accurately reflect our healthy population. There may be differences in the flagging of prior results with similar values performed with this method. Interpretation of those prior results can be made in the context of the updated reference intervals. Potassium 3.7 3.4 - 5.3 mmol/L 09/07/2023 7:27 PM [facility] Chloride 100 98 - 107 mmol/L 09/07/2023 7:27 PM [facility] Carbon Dioxide (CO2) 26 22 - 29 mmol/L 09/07/2023 7:27 PM [facility] Anion Gap 12 7 - 15 mmol/L 09/07/2023 7:27 PM [facility] Urea Nitrogen 12.9 6.0 - 20.0 mg/dL 09/07/2023 7:27 PM [facility] Creatinine 0.73 0.51 - 0.95 mg/dL 09/07/2023 7:27 PM [facility] GFR Estimate >90 >60 mL/min/1. 73m2 09/07/2023 7:27 PM IT TECHNICAL SUPPORT SPECIALIST LABORATORY Calcium 9.5 8.6 - 10.0 mg/dL 09/07/2023 7:27 PM IT TECHNICAL SUPPORT SPECIALIST LABORATORY Glucose 90 70 - 99 mg/dL 09/07/2023 7:27 PM IT TECHNICAL SUPPORT SPECIALIST LABORATORY Blood STRUCTURE OF LEFT UPPER LIMB / Unknown Venipuncture / Unknown 09/07/2023 6:59 PM IT TECHNICAL SUPPORT SPECIALIST 09/07/2023 7:05 PM IT TECHNICAL SUPPORT SPECIALIST Brea Meyer MD LAB - BLOOD [facility] LABORATORY [facility] Acute [facility] Lab [address] Lab (1st floor, no room number) [place] [address] [phone] * EKG 12 lead (09/07/2023 6:14 PM IT TECHNICAL SUPPORT SPECIALIST) Systolic Blood Pressure mmHg RADIOLOGY RESULTS Diastolic Blood Pressure mmHg RADIOLOGY RESULTS Ventricular Rate 82 BPM RAD IOLOGY RESULTS Atrial Rate 82 BPM RADIOLOG Y RESULTS AK Interval 164 ms RADIOLOG Y RESULTS QRS Duration 86 ms RADIOLO GY RESULTS QT 382 ms RADIOLOGY RESULTS QTc 446 ms RADIOLOGY RESULTS P [place] 50 degrees RADIOLOGY RESULTS R AXIS 65 degrees RADIOLOGY RESULTS T [place] 47 degrees RADIOLOGY RESULTS Interpretation ECG Sinus rhythm Nonspecific ST abnormality Abnormal ECG When compared with ECG of 19-MAY-2023 09:49, No significant change was found Unconfirmed report - interpretation of this ECG is computer generated - see medical record for final interpretation Confirmed by - EMERGENCY ROOM, PHYSICIAN ([id number]), editor house organ NIC LESTER ([id number]) on 09/08/2023 6:52:35 AM RADIOLOGY RESULTS 09/07/2023 6:14 PM IT TECHNICAL SUPPORT SPECIALIST 09/08/2023 6:52 AM IT TECHNICAL SUPPORT SPECIALIST Brea Meyer MD ECG ORDERABLES RADIOLOGY RESULTS documented in this encounter Visit Diagnoses Diagnosis Chest pain, unspecified type documented in this encounter Administered Medications Inactive Administered Medications - up to 3 most recent administrations Medication Order MAR Action Action Date Dose Rate Site alum & mag hydroxide-simethicone (MAALOX) suspension 15 mL 15 mL, Oral, ONCE, On Tue09/07/23 at 2040, For 1 dose, Use for 'GI cocktail'. $Given 09/07/2023 8:44 PM IT TECHNICAL SUPPORT SPECIALIST 15 mLs aspirin (ASA) tablet 325 mg 325 mg, Oral, ONCE, On Tue09/07/23 at 1840, For 1 dose $Given 09/07/2023 6:52 PM IT TECHNICAL SUPPORT SPECIALIST 325 mg ondansetron (ZOFRAN ODT) ODT tab 4 mg 4 mg, Oral, ONCE, On Tue09/07/23 at 1850, For 1 dose, With dry hands, peel back foil backing and gently remove tablet. Do not push oral disintegrating tablet through foil backing. Administer immediately on tongue and oral disintegrating tablet dissolves in seconds, then swallow with saliva. Liquid not required. $Given 09/07/2023 6:52 PM IT TECHNICAL SUPPORT SPECIALIST 4 mg documented in this encounter Active and Recently Administered Medications Times are shown in IT TECHNICAL SUPPORT SPECIALIST. Scheduled Medication Order 09/05/2023 09/06/2023 09/07/2023 alum & mag hydroxide-simethicone (MAALOX) suspension 15 mL (COMPLETED) 15 mL, Oral, ONCE, On Tue09/07/23 at 0, For 1 dose, Use for 'GI cocktail'. 2043 ($Given - Provi lynn: Audrey Mercer RN) aspirin (ASA) tablet 325 mg (COMPLETED) 325 mg, Oral, ONCE, On Tue09/07/23 at 1840, For 1 dose 1851 ($Given - Provi lynn: Audrey Mercer RN) ondansetron (ZOFRAN ODT) ODT tab 4 mg (COMPLETED) 4 mg, Oral, ONCE, On Tue09/07/23 at 1850, For 1 dose, With dry hands, peel back foil backing and gently remove tablet. Do not push oral disintegrating tablet through foil backing. Administer immediately on tongue and oral disintegrating tablet dissolves in seconds, then swallow with saliva. Liquid not required. 1851 ($Given - Provi lynn: Audrey Mercer RN) documented in this encounter Additional Health Concerns Assessment Noted Time PHQ-9 Depression Total Score: 4 06/20/20 23 8:40 AM IT TECHNICAL SUPPORT SPECIALIST documented as of this encounter Care Teams [employer] [employer] Relationship Specialty Start Date End Date Esha Grimm PA-C [address] [place] [phone] PCP - General Family Medicine 05/04/23 Diana Desir, [facility] [address] [place] [address] Pharmacist Pharmacist 04/17/21 Rain Galaviz PA-C [address] [place] [address] [address] [facility] [place] [address] Physician Pharmaceutical Engineer Dermatology 04/28/21 Tavia Wyatt MD [address] [place] [address] [address] [place] [address] Dermatology 07/14/21 Erica Farrell, ARLENE SUBMARINE WORKER [address] [place], [place] [phone] Nurse Practitioner Cardiovascular Disease 09/09/21 Rich Barrett MD [address] [facility] [address] [place], [place] [address] Physician Ophthalmology 01/21/22 Neil Kent MD [address] [place], [place] [phone] Dermatology 02/24/22 Diana Desir, [facility] [address] [place] [address] Assigned MTM Pharmacist 04/07/22 Livan Sharif MD [address] [place] [address] Cardiovascular Disease 05/14/22 Catherine Cm MD [address] [facility] [address] [place] [address] Cardiovascular Disease 07/21/22 Valery Veronica, PA-C [address] [place] [address] Physician Pharmaceutical Engineer Dermatology 07/21/22 Brea Quinn APRN SUBMARINE WORKER [address] [place] [address] Nurse Practitioner Dermatology 09/21/22 Brea Quinn APRN SUBMARINE WORKER [address] [place] [address] Assigned Surgical Provider 10/09/22 [place] [address] [address] Assigned Musculoskeletal Provider 10/09/22 Alfonso Renteria MD [address] [facility] [address] [place], [place] [address] Assigned Neuroscience Provider 04/02/23 Radha Lomeli APRN SUBMARINE WORKER [address] [place] [address] Assigned Heart and Vascular Provider 05/28/23 Jelena David OD [address] [facility] [place] [place] [address] Ophthalmology 06/15/23 Pao Joseph, VJ Personal Advocate & Liaison (PAL) Nurse 08/01/23 Esha Grimm, PAUcheC [address] [place] [phone] Assigned PCP 07/16/23 documented as of this encounter
--- OUTSIDE RECORDS SUMMARY | 2023-10-15 21:50 | XMS_ITS | Encounter Summary ---
Author Name Unknown Organization [facility] Address [address] [place] [address] Care Team Providers Care Diver Assistant Name Role Phone ThangKendrickDiana T [facility] Unavailable Rain Galaviz-C Unavailable Tavia Wyatt MD Unavailable Unavailable Erica Farrell APRN PHYSICAL GEOGRAPHER Unavailable Rich Barrett MD Unavailable Neil Kent MD Unavailable Diana Desir [facility] Unavailable [phone] Livan Sharif MD Unavailable Catherine Cm MD Unavailable + Valery Veronica PA-C Unavailable [phone] Brea Quinn ROVING INSPECTOR PHYSICAL GEOGRAPHER Unavailable Brea Quinn ROVING INSPECTOR PHYSICAL GEOGRAPHER Unavailable Jose Francisco Johnsno MD Unavailable Alfonso Renteria MD Unavailable + [phone] Esha Grimm PA-C Primary Care Provider [phone] Radha Lomeli ROVING INSPECTOR PHYSICAL GEOGRAPHER Unavailable Jelena David Radha OD Unavailable [phone] Pao Joseph RN Unavailable Unavailable Esha GrimmC Unavailable [phone] Encounter Details Date Type Department Care Team (Late st Contact Info) Description 09/01/2023 2:00 PM [facility] Lab [address] [address] Breast tenderness; Screen for STD (sexually transmitted disease) Social History Tobacco Use Types Packs/Day Years [...] How often do you attend chur or jainism services? 1 to 4 times per year 03/10/2023 Do you belong to any clubs o r organizations such as scientology groups, unions, fraternal or athletic groups, [...] Date Recorded PHQ-2 Score 0 06/20/2023 [facility] [place] of Occupat ional Health - Occupational Stress [...] exercise at this level? 30 min 03/10/2023 [place] Depression Scale Answer Date Recorded [place] Depression Score 5 01/14/2021 Last EPDS Self [...] Description 10/25/2023 11:30 AM CDT Virtual Visit [facility] [address] [place] [phone] [address], [address] [place] [address] 11/03/2023 8:00 AM CDT Office Visit [address] [phone] Valery Veronica PA-C [address] [place] [address] 11/29/2023 8:00 AM CDT Office Visit [facility] [id number] [place] [phone] Esha Grimm PA-C [address] [place] [address] 01/02/2024 8:00 AM CDT Office Visit [facility] [address] [place] [phone] Lauren Claudio PA-C [address] [place], [place] [phone] Kelli Perez MD [address] [place] [address] documented as of this encounter Procedures Procedure Name Priority Date/Time Associated Diagnosis Comments TESTOSTERONE FREE AND TOTAL Routine 09/01/2023 2:25 PM NUCLEAR WEAPONS SPECIALIST Breast tenderness SEX HORMONE BINDING GLOBULIN Routine 09/01/2023 2:25 PM NUCLEAR WEAPONS SPECIALIST Breast tenderness HIV ANTIGEN ANTIBODY COMBO Routine 09/01/2023 2:25 PM NUCLEAR WEAPONS SPECIALIST Screen for STD (sexually transmitted disease) TREPONEMA ABS W REFLEX TO RPR AND TITER Routine 09/01/2023 2:25 PM NUCLEAR WEAPONS SPECIALIST Screen for STD (sexually transmitted disease) TESTOSTERONE FREE AND TOTAL Routine 09/01/2023 2:25 PM NUCLEAR WEAPONS SPECIALIST Breast tenderness PROLACTIN Routine 09/01/2023 2:25 PM NUCLEAR WEAPONS SPECIALIST Breast tenderness PROGESTERONE Routine 09/01/2023 2:25 PM NUCLEAR WEAPONS SPECIALIST Breast tenderness LUTEINIZING HORMONE Routine 09/01/2023 2 :25 PM NUCLEAR WEAPONS SPECIALIST Breast tenderness HCG QUALITATIVE Routine 09/01/2023 2:25 PM NUCLEAR WEAPONS SPECIALIST Breast tenderness FOLLICLE STIMULATING HORMONE Routine 09/01/2023 2:25 PM NUCLEAR WEAPONS SPECIALIST Breast tenderness ESTRADIOL Routine 09/01/2023 2:25 PM NUCLEAR WEAPONS SPECIALIST Breast tenderness documented in this encounter Results * hCG Qualitative (09/01/2023 2:25 PM NUCLEAR WEAPONS SPECIALIST) hCG Serum Qualitative Negative Negative REINA 09/01/2023 5:34 PM NUCLEAR WEAPONS SPECIALIST [facility] Comment:This test is for scr eening purposes. Results should be interpreted along with the clinical picture. Confirmation testing is available if warranted by ordering [id number], HCG Quantitative . Blood BLOOD SPECIMEN / Unknown Venipuncture / Unknown 09/01/2023 2:25 PM NUCLEAR WEAPONS SPECIALIST 09/01/2023 2:25 PM NUCLEAR WEAPONS SPECIALIST Esha Grimm PA-C LAB - BLOOD ORDERABL ES [facility] [address] [facility], Room [address] [place] [address], [facility] [phone] * Testosterone Free and Total (09/01/2023 2:25 PM NUCLEAR WEAPONS SPECIALIST) Free Testosterone Calculated 0.18 ng/dL 09/04/2023 6:56 AM NUCLEAR WEAPONS SPECIALIST [facility] Comment: Adult Female Reference Range: 18-30 Years: 0.08-0.74 ng/dL 31-40 Years: 0.13-0.92 ng/dL 41-51 Years: 0.11-0.58 ng/dL Postmenopausal: 0.06-0.38 ng/dL Testosterone Total 10 8 - 60 ng/dL 09/04/2023 6:56 AM NUCLEAR WEAPONS SPECIALIST [facility] Blood BLOOD SPECIMEN / Unknown Venipuncture / Unknown 09/01/2023 2:25 PM NUCLEAR WEAPONS SPECIALIST 09/01/2023 2:25 PM NUCLEAR WEAPONS SPECIALIST Narrative [facility] - 09/04/2023 6:56 AM NUCLEAR WEAPONS SPECIALIST This test was developed and its performance characteristics determined by the [facility], ??Special Chemistry Laboratory. It has not been cleared or approved by the FDA. The laboratory is regulated under CLIA as qualified to perform high-complexity testing. This test is used for clinical purposes. It should not be regarded as investigational or for research. Esha Grimm PA-C LAB - BLOOD ORDERABL ES Performing Organization Address City/[facility] Co de Phone Number [facility] Special Drug/BGEN [address] [place] [facility], Room [address] [place] [address], [facility] [phone] * Sex Hormone Binding Globulin (09/01/2023 2:25 PM NUCLEAR WEAPONS SPECIALIST) Sex Hormone Binding Globulin 32 30 - 135 nmol/L 09/01/2023 5:45 PM NUCLEAR WEAPONS SPECIALIST [facility] Blood BLOOD SPECIMEN / Unknown Venipuncture / Unknown 09/01/2023 2:25 PM NUCLEAR WEAPONS SPECIALIST 09/01/2023 2:25 PM NUCLEAR WEAPONS SPECIALIST Esha Grimm PA-C LAB - BLOOD ORDERABL ES [facility] 500 [facility] [address] [facility], [address] [address], [facility] [phone] * Treponema Abs w Reflex to RPR and Titer (09/01/2023 2:25 PM NUCLEAR WEAPONS SPECIALIST) Treponema Antibody Total Nonreactive Nonreactive 09/01/2023 6:05 PM NUCLEAR WEAPONS SPECIALIST [facility]/PROT/EN DO Blood BLOOD SPECIMEN / Unknown Venipuncture / Unknown 09/01/2023 2:25 PM NUCLEAR WEAPONS SPECIALIST 09/01/2023 2:25 PM NUCLEAR WEAPONS SPECIALIST Esha Grimm PA-C LAB - BLOOD ORDERABL ES Performing Organization Address City/[facility]/ZIP Co de Phone Number SPECIALTY CORE/PROT/ENDO Specialty Core/Prot/Endo 500 [facility] [address] [facility], Room [address] [phone] * HIV Antigen Antibody Combo (09/01/2023 2:25 PM NUCLEAR WEAPONS SPECIALIST) HIV Antigen Antibody Combo Nonreactive Nonreactive 09/01/2023 5:50 PM NUCLEAR WEAPONS SPECIALIST LABORATORY Comment:Negative HIV-1/-2 an tigen and antibody screening test results usually indicate the absence of HIV-1 and HIV-2 infection. However, such negative results do not rule-out acute HIV infection. If acute HIV-1 or HIV-2 infection is suspected, detection of HIV-1 or HIV-2 RNA is recommended. Blood BLOOD SPECIMEN / Unknown Venipuncture / Unknown 09/01/2023 2:25 PM NUCLEAR WEAPONS SPECIALIST 09/01/2023 2:25 PM NUCLEAR WEAPONS SPECIALIST Esha Grimm PA-C LAB - BLOOD ORDERABL ES [facility] 500 [facility] [address] [facility], [address] [address], [facility] [phone] * Progesterone (09/01/2023 2:25 PM NUCLEAR WEAPONS SPECIALIST) Progesterone 0.3 ng/mL 09/01/2023 7:34 PM NUCLEAR WEAPONS SPECIALIST [facility] Comment: Healthy Postmenopausal Women Postmenopause: [...] Unknown Venipuncture / Unknown 09/01/2023 2:25 PM NUCLEAR WEAPONS SPECIALIST 09/01/2023 2:25 PM NUCLEAR WEAPONS SPECIALIST Esha Grimm PA-C LAB - BLOOD ORDERABL ES [facility] [address] [place] [address], [address] [address] [phone] * Estradiol (09/01/2023 2:25 PM NUCLEAR WEAPONS SPECIALIST) Estradiol 14 pg/mL 09/01/2023 7:34 PM NUCLEAR WEAPONS SPECIALIST [facility] Comment: Healthy Men: 11.3-43.2 pg/mL Healthy Postmenopausal Women: Postmenopause: <5-138 pg/mL Healthy Women: 1st trimester: 154-3243 pg/mL 2nd trimester: 1561-40073 pg/mL 3rd trimester: 8525->32379 pg/mL Healthy Women Cycle Phase: Follicular: 30.9-90.4 pg/mL Ovulation: 60.4-533 pg/mL Luteal: 60.4-232 pg/mL Healthy Women Cycle Sub-Phase: Early Follicular: 20.5-62.8 pg/mL Intermediate Follicular: 26-79.8 pg/mL Late Follicular: 49.5-233 pg/mL Ovulation: 60.4-602 pg/mL Early Luteal: 51.1-179 pg/mL Intermediate Luteal: 66.5-305 pg/mL Late Luteal: 30.2-222 pg/mL Blood BLOOD SPECIMEN / Unknown Venipuncture / Unknown 09/01/2023 2:25 PM NUCLEAR WEAPONS SPECIALIST 09/01/2023 2:25 PM NUCLEAR WEAPONS SPECIALIST Esha Grimm PA-C LAB - BLOOD ORDERABL ES Performing Organization Address City/[facility] Co de Phone Number [facility] 500 [facility], [address] [address], [facility] [phone] * Prolactin (09/01/2023 2:25 PM NUCLEAR WEAPONS SPECIALIST) Prolactin 6 5 - 23 ng/mL 09/01/2023 7:34 PM NUCLEAR WEAPONS SPECIALIST [facility] Blood BLOOD SPECIMEN / Unknown Venipuncture / Unknown 09/01/2023 2:25 PM NUCLEAR WEAPONS SPECIALIST 09/01/2023 2:25 PM NUCLEAR WEAPONS SPECIALIST Esha Grimm PA-C LAB - BLOOD ORDERABL ES Performing Organization Address City/[facility] de Phone Number [facility] 500 [facility], [address] [address], [facility] [phone] * Luteinizing Hormone (09/01/2023 2:25 PM NUCLEAR WEAPONS SPECIALIST) Luteinizing Hormone 4.4 mIU/mL 09/01/2023 7:34 PM NUCLEAR WEAPONS SPECIALIST [facility] Comment: FEMALE: Age 0 - 6 mo: ??<0.1-8.2 mIU/mL 6 mo - 11 years: <0.1-1.3 mIU/mL 11 - 14 years: <0.1-10 mIU/mL 14 - 19 years: 0.4-25 mIU/mL 19 years and older: Follicular Phase: 2.4-12.6 mIU/mL Ovulation Phase: 14.0-95.6 mIU/mL Luteal Phase: 1.0-11.4 ??mIU/mL Postmenopausal: 7.7-58.5 mIU/mL Blood BLOOD SPECIMEN / Unknown Venipuncture / Unknown 09/01/2023 2:25 PM NUCLEAR WEAPONS SPECIALIST 09/01/2023 2:25 PM NUCLEAR WEAPONS SPECIALIST Esha Grimm PA-C LAB - BLOOD ORDERABL ES Performing Organization Address City/[facility] Co de Phone Number LABORATORY [facility] 500 [facility], [address] [address], [facility] [phone] * Follicle stimulating hormone (09/01/2023 2:25 PM NUCLEAR WEAPONS SPECIALIST) FSH 4.5 mIU/mL 09/01/2023 7:34 PM NUCLEAR WEAPONS SPECIALIST [facility] Comment: 19 years and older: Follicular phase: 3.5-12.5 mIU/mL Ovulation phase: 4.7-21.5 mIU/mL Luteal phase: 1.7-7.7 mIU/mL Postmenopause: 25.8-134.8 mIU/mL Blood BLOOD SPECIMEN / Unknown Venipuncture / Unknown 09/01/2023 2:25 PM NUCLEAR WEAPONS SPECIALIST 09/01/2023 2:25 PM NUCLEAR WEAPONS SPECIALIST Esha Grimm PA-C LAB - BLOOD ORDERABL ES Performing Organization Address City/[facility] de Phone Number LABORATORY [facility] [address] [place] [address], [address] [phone], [facility] [phone] documented in this encounter Visit Diagnoses Diagnosis Breast tenderness Mastodynia Screen for STD (sexually transmitted disease) Screening examination for venereal disease documented in this encounter Additional Health Concerns Assessment Noted Time PHQ-9 Depression Total Score: 4 06/20/20 23 8:40 AM NUCLEAR WEAPONS SPECIALIST documented as of this encounter Care Teams Diver Assistant Relationship Specialty Start Date End Date Esha Grimm PA-C [address] [place] [phone] PCP - General Family Medicine 05/04/23 Diana Desir, [facility] [address] [place] [address] Pharmacist Pharmacist 04/17/21 Rain Galaviz PA-C [address] [place] [address] [address] [place] [address] Physician Jig And Fixture Maker Dermatology 04/28/21 Tavia Wyatt MD [address] [place] [address] [address] [place] [address] Dermatology 07/14/21 Erica Farrell APRN PHYSICAL GEOGRAPHER [address] [place] [address] Nurse Practitioner Cardiovascular Disease 09/09/21 Rich Barrett MD 516 [facility] [address] [place], [place] 33[address]85 Physician Ophthalmology 01/21/22 Neil Kent MD 500 [place], [place] [phone] Dermatology 02/24/22 Diana Desir, [facility] [address] [place] [address] Assigned MTM Pharmacist 04/07/22 Livan Sharif MD [address] [place] [address] Cardiovascular Disease 05/14/22 Catherine Cm MD 6405 [facility] [address] [place] [address] Cardiovascular Disease 07/21/22 Valery Veronica, PAUcheC 909 [place] [address] Physician Jig And Fixture Maker Dermatology 07/21/22 Brea Quinn APRN PHYSICAL GEOGRAPHER 500 [place] [address] Nurse Practitioner Dermatology 09/21/22 Brea Quinn APRN PHYSICAL GEOGRAPHER [address] [place] [address] Assigned Surgical Provider 10/09/22 [place] [address] [place] [address] Assigned Musculoskeletal Provider 10/09/22 Alfonso Renteria MD 5775 [facility] 200 [place], [place] [address]18[address] Assigned Neuroscience Provider 04/02/23 Radha Loemli APRN PHYSICAL GEOGRAPHER 6[address] [facility] [address] [place] [address] Assigned Heart and Vascular Provider 05/28/23 Jelena David OD [address] [facility] [place] [address] Ophthalmology 06/15/23 Pao Joseph, RN Personal Advocate & Liaison (PAL) Nurse 08/01/23 Esha Grimm PA-C [address] [place] [phone] Assigned PCP 07/16/23 documented as of this encounter
--- OUTSIDE RECORDS SUMMARY | 2023-10-15 21:50 | XMS_ITS | Encounter Summary ---
Author Name Unknown Organization [facility] Address [address] [place] [address] Care Team Providers Care It Specialist Name Role Phone ThangKendrickDiana T [facility] Unavailable [phone] Rain Galaviz-C Unavailable [phone] Tavia Wyatt MD Unavailable Unavailable Erica Farrell APRN DAMPER FITTER Unavailable Rich Barrett MD Unavailable Neil Kent MD Unavailable Diana Desir [facility] Unavailable [phone] Livan Sharif MD Unavailable Catherine Cm MD Unavailable + Valery Veronica PA-C Unavailable [phone] Bera Quinn HISTORIC SITES SUPERVISOR DAMPER FITTER Unavailable [phone] Brea Quinn HISTORIC SITES SUPERVISOR DAMPER FITTER Unavailable Jose Francisco Johnson MD Unavailable Alfonso Renteria MD Unavailable + [phone] Esha Grimm PA-C Primary Care Provider [phone] Radha Lomeli HISTORIC SITES SUPERVISOR DAMPER FITTER Unavailable Jelena David OD Unavailable Pao Joseph RN Unavailable Unavailable Esha Grimm PA-C Unavailable [phone] Encounter Details Date Type Department Care Team (Late st Contact Info) Description 08/29/2023 MyC Medical Advice [facility] [address] [place] [address] Esha Grimm PA-C [id number] [place] [address] Social History Tobacco Use Types Packs/Day [...] How often do you attend chur or restorationism services? 1 to 4 times per year 03/10/2023 Do you belong to any clubs o r organizations such as judaism groups, unions, fraternal or athletic groups, [...] Date Recorded PHQ-2 Score 0 06/20/2023 [facility] of Occupat ional Health - Occupational Stress [...] exercise at this level? 30 min 03/10/2023 [place] Depression Scale Answer Date Recorded [place] Depression Score 5 01/14/2021 Last EPDS Self [...] Telephone Encounter - Bassem Arnett RN - 08/30/2023 4:08 PM PELLETIZER TENDER - advised to schedule an appointment either by Myc or by calling the station to schedule. Chuckie Arnett RN Patient Advocate Liaison (PAL) [facility] 08/30/2023 at 4:14 PM ETIZER TENDER documented in this encounter Plan of Treatment Upcoming Encounters Date Type Department Care Team (Late st Contact Info) Description 10/25/2023 11:30 AM CDT Virtual Visit [facility] [address] [place] [phone] [address], RD [address] [place] [address] 11/03/2023 8:00 AM CDT Office Visit [address] [phone] Valery Veronica PA-C [address] [place] [address] 11/29/2023 8:00 AM CDT Office Visit [facility] [address] [place] [address] Esha Grimm PA-C [address] [place] [address] 01/02/2024 8:00 AM CDT Office Visit [facility] Sleep [address] [phone] Lauren Claudio PA-C [address] [place], [place] [phone] Kelli Perez MD [address] [place], [place] [address] documented as of this encounter Visit Diagnoses Not on filedocumented in this encounter Additional Health Concerns Assessment Noted Time PHQ-9 Depression Total Score: 4 06/20/20 23 8:40 AM PELLETIZER TENDER documented as of this encounter Care Teams It Specialist Relationship Specialty Start Date End Date Esha Grimm PA-C [address] [place] [phone] PCP - General Family Medicine 05/04/23 [facility] [address] [place], [place] 126976 Pharmacist Pharmacist 04/17/21 Rain Galaviz PA-C [address] [place] [address] [address] [place] [address] Physician Heliarc Welder Dermatology 04/28/21 Tavia Wyatt MD [address] [place] [address] [address] [place] [address] Dermatology 07/14/21 Erica Farrell APRN DAMPER FITTER 6405 [facility] [address] [place] [address] Nurse Practitioner Cardiovascular Disease 09/09/21 Rich Barrett MD 6 [facility] 9A [place] [address] Physician Ophthalmology 01/21/22 Neil Kent MD 500 [place], [place] 856925 Dermatology 02/24/22 Diana Desir, [facility] [address] [place], [place] [address]886 Assigned MTM Pharmacist 04/07/22 Livan Sharif MD [address] [place] [address]345 Cardiovascular Disease 05/14/22 Catherine Cm MD [address] [facility] [place] [address] Cardiovascular Disease 07/21/22 Valery Veronica, PA-C 9 [place], [place] 458455 Physician Heliarc Welder Dermatology 07/21/22 Brea Quinn APRN DAMPER FITTER 500 [place] [address] Nurse Practitioner Dermatology 09/21/22 Brea Quinn APRN DAMPER FITTER [address] [facility] [place] [address]82 Assigned Surgical Provider 10/09/22 [place] [address] [place] [address] Assigned Musculoskeletal Provider 10/09/22 Alfonso Renteria MD [address] [place], [place] 97[address] Assigned Neuroscience Provider 04/02/23 Radha Lomeli APRN DAMPER FITTER 6405 [facility] [address] [place], [place] 45[address]85 Assigned Heart and Vascular Provider 05/28/23 Jelena David OD 3305 [facility] [place] [phone] Ophthalmology 06/15/23 Pao Joseph, VJ Personal Advocate & Liaison (PAL) Nurse 08/01/23 Esha Girmm, PA-C [address] [place] [address] Assigned PCP 07/16/23 documented as of this encounter
--- OUTSIDE RECORDS SUMMARY | 2023-10-15 21:50 | XMS_ITS | Encounter Summary ---
Author Name Unknown Organization [place] Address [address] [place] [address] Care Team Providers Care Information Strategist Name Role Phone ThangKendrickDiana T [facility] Unavailable Rain Galaviz-C Unavailable Tavia Wyatt MD Unavailable Unavailable Erica Farrell APRN ROTARY OPERATOR Unavailable Rich Barrett MD Unavailable Neil Kent MD Unavailable Diana Desir [facility] Unavailable [phone] Livan Sharif MD Unavailable Catherine Cm MD Unavailable + Valery Veronica PA-C Unavailable [phone] Brea Quinn STAFF PHARMACIST HOSPITAL ROTARY OPERATOR Unavailable Brea Quinn STAFF PHARMACIST HOSPITAL ROTARY OPERATOR Unavailable Jose Francisco Johnson MD Unavailable Alfonso Renteria MD Unavailable + [phone] Esha Grimm PA-C Primary Care Provider [phone] Radha Lomeli STAFF PHARMACIST HOSPITAL ROTARY OPERATOR Unavailable Frankie Jelena Templetone OD Unavailable Pao Joseph RN Unavailable Unavailable Esha Grimm PA-C Unavailable [phone] Valery Veronica PA-C Unavailable [phone] Rey Tay MD Unavailable Duane Rockyanne STEVENS Unavailable Philip Dumont MD Unavailable [phone] Encounter Details Date Type Department Care Team (Late st Contact Info) Description 08/25/2023 [facility] Medical Advice [address] [address] Diana Desir, [facility] [address] [place] [address] Social History Tobacco Use Types [...] How often do you attend chur or christianity services? 1 to 4 times per year 03/10/2023 Do you belong to any clubs o r organizations such as yarsani groups, unions, fraternal or athletic groups, [...] Answer Date Recorded PHQ-2 Score 0 06/20/2023 [facility] of Occupat ional Health - [...] exercise at this level? 30 min 03/10/2023 [place] Depression Scale Answer Date Recorded [place] Depression Score 5 01/14/2021 Last EPDS Self [...] Description 10/25/2023 11:30 AM CDT Virtual Visit [facility] [address] [place] [phone] [address], [address] [place] [address] 11/03/2023 8:00 AM CDT Office Visit [facility] [address] [place] [phone] Valery Veronica PA-C [address] [place] [address] 11/29/2023 8:00 AM CDT Office Visit [facility] [address] [place] [phone] Esha Grimm PA-C [address] [place] [address] 01/02/2024 8:00 AM CDT Office Visit [facility] [place] [address] [place] [phone] Lauren Claudio PA-C [address] [place], [place] [phone] Kelli Perez MD [address] [place], [place] [address]474 documented as of this encounter Visit Diagnoses Not on filedocumented in this encounter Additional Health Concerns Assessment Noted Time PHQ-9 Depression Total Score: 4 06/20/20 23 8:40 AM ENVIRONMENTAL PROJECT MANAGER documented as of this encounter Care Teams Information Strategist Relationship Specialty Start Date End Date Esha Grimm PA-C [address] [place] [phone] PCP - General Family Medicine 05/04/23 Diana Desir, [facility] [address] [place], [place] [address] Pharmacist Pharmacist 04/17/21 Rain Galaviz PA-C [address] [place] [address] [address] [place] [address] Physician Sterilization Tech Dermatology 04/28/21 Tavia Wyatt MD [address] [place] [place] [address] [address] [place] [address] Dermatology 07/14/21 Erica Farrell APRN ROTARY OPERATOR [address] [facility] [address] [place], [place] [address] Nurse Practitioner Cardiovascular Disease 09/09/21 Rich Barrett MD [address] [facility] [address] [place], [place] 68[address] Physician Ophthalmology 01/21/22 Neil Kent MD 500 [place] [address] Dermatology 02/24/22 [facility] [address] [place] [address] Assigned [place] Pharmacist 04/07/22 Livan Sharif MD [address] [facility] [place] [id number] [place] [address] Cardiovascular Disease 05/14/22 Catherine Cm MD [address] 152465 Cardiovascular Disease 07/21/22 Valery Veronica, PA-C [address] [place], [place] 539685 Physician Sterilization Tech Dermatology 07/21/22 Brea Quinn APRN ROTARY OPERATOR 500 [place] [address] Nurse Practitioner Dermatology 09/21/22 Brea Quinn APRN ROTARY OPERATOR [address] [place] [address] Assigned Surgical Provider 10/09/22 [place] [address] [place] [address] [address] Assigned Musculoskeletal Provider 10/09/22 Alfonso Renteria MD 5775 [facility] 200 [place] [address] Assigned Neuroscience Provider 04/02/23 Radha Lomeli APRN ROTARY OPERATOR [address] [place] [address] Assigned Heart and Vascular Provider 05/28/23 Jelena David OD [address] [facility] [place] [address] MD Ophthalmology 06/15/23 Pao Joseph, RN Personal Advocate & Liaison (PAL) Nurse 08/01/23 Esha Grimm PA-C [address] [place] [phone] Assigned PCP 07/16/23 Valery Veronica PA-C [address] [place] [address] Physician Sterilization Tech Dermatology 09/19/23 Rey Tay MD [address] [place] [address] MD Gastroenterology 09/20/23 Rocky Zepeda DO [address] [place] [address] Physician Gastroenterology 09/20/23 Philip Dumont MD [address] [place] [place] [address]47165 Physician Ophthalmology 09/22/23 documented as of this encounter
--- OUTSIDE RECORDS SUMMARY | 2023-10-15 21:50 | XMS_ITS | Encounter Summary ---
Author Name Unknown Organization [place] Address [address] [place] [address] Care Team Providers Care Green Chain Puller Name Role Phone ThangKendrickDiana T [facility] Unavailable [phone] Rain Galaviz-C Unavailable [phone] Tavia Wyatt MD Unavailable Unavailable Erica Farrell APRN ASL INTERPRETER Unavailable Rich Barrett MD Unavailable Neil Kent MD Unavailable Diana Desir [facility] Unavailable [phone] Livan Sharif MD Unavailable Catherine Cm MD Unavailable + Valery Veronica PA-C Unavailable [phone] Brea Quinn SENIOR LEAD DEVELOPER ASL INTERPRETER Unavailable Brea Quinn SENIOR LEAD DEVELOPER ASL INTERPRETER Unavailable Jose Francisco Johnson MD Unavailable Alfonso Renteria MD Unavailable + [phone] Esha Grimm PA-C Primary Care Provider [phone] Radha Lomeli SENIOR LEAD DEVELOPER ASL INTERPRETER Unavailable Jelena David OD Unavailable Pao Joseph RN Unavailable Unavailable Esha Grimm PA-C Unavailable [phone] Reason for Visit * Reason Onset Date Comments Pt. Information/instruction 08/25/2023 EGD Encounter Details Date Type Department Care Team ([facility] Contact Info) Description 08/25/2023 Telephone [facility] Endoscopy [address] [place] [address] Marija Polanco, VJ Pt. Information/instruction (EGD) Social History Tobacco Use Types Packs/Day Years [...] Answer Date Recorded PHQ-2 Score 0 06/20/2023 [facility] of Occupat ional Health - Occupational Stress [...] exercise at this level? 30 min 03/10/2023 [place] Depression Scale Answer Date Recorded [place] Depression Score 5 01/14/2021 Last EPDS Self [...] encounter Miscellaneous Notes * Telephone Encounter - Marija Polanco RN - 09/08/2023 1:02 PM CST Rescheduled procedure Patient stated she rescheduled because she and her daughter had Influenza B but symptoms now resolved. Patient scheduled for Upper endoscopy (EGD) on 09/12/23. Arrival time: 1230. Procedure time 1315 Pre op exam needed? N/A Facility location: [facility]; [address] [place] [address] Sedation type: Conscious sedation Pre-Assessment was completed for previously scheduled procedure. (See documentation below). No new medical events or medications since last review. Resent prep instructions via [employer]. RN spoke with Patient and reviewed information. They have no further questions or concerns at this time. Marija Polanco RN Endoscopy Procedure Pre director digital marketing UCTION MACHINE TENDER * Telephone Encounter - Marija Polanco RN - 08/30/2023 8:56 AM CST Pre assessment completed for upcoming procedure. (Please see previous telephone encounter notes for complete details) Procedure details: Arrival time and facility location reviewed. Pre op exam needed? N/A Designated lead driver policy reviewed. Instructed to have someone stay 6 hours post procedure. COVID policy reviewed. Medication review: Medications reviewed. Please see supporting documentation below. Holding recommendations discussed (if applicable). NSAID medication(s): Ibuprofen (Advil, Motrin): HOLD 1 day before procedure. HOLD 2 weeks before procedure any acid reducing medications (Aciphex, Axid, cimetidine, esomeprazole, famotidine, Losec, metoclopramide, Nexium, nizatidine, omeprazole, pantoprazole, Pepcid, Prilosec, Propulsid, Protonix, rabeprazole, ranitidine, Reglan, Tagamet and Zantac). Prep for procedure: Procedure prep instructions reviewed. Any additional information needed: N/A Patient verbalized understanding and had no questions or concerns at this time. Marija Polanco RN Endoscopy Procedure Pre director digital marketing [phone] option 4 UCTION MACHINE TENDER * Telephone Encounter - Marija Polanco RN - 08/25/2023 1:47 PM CST Attempted to contact patient in order to complete pre assessment questions. No answer. Left message to return call to [phone] option 4 Missed call communication sent via [employer]. Marija Polanco RN Endoscopy Procedure Pre director digital marketing UCTION MACHINE TENDER * Telephone Encounter - Marija Polanco RN - 08/25/2023 1:34 PM CST Pre visit planning completed. Procedure details: Patient scheduled for Upper endoscopy (EGD) on 09/08/23. Arrival time: 0745. Procedure time 0830 Pre op exam needed? N/A Facility location: [facility]; [address] [place] [address] Sedation type: Conscious sedation Indication for procedure: Bloating, reflux, difficulty burping (feels like getting stuck), some dysphagia Chart review: Electronic implanted devices? No Diabetic? No Medication review: Anticoagulants? No NSAIDS? No NSAID medications per patient's medication list. RN will verify with pre-assessment call. Other medication HOLDING recommendations: EGD: PPIs/Acid reducing medication: HOLD 2 weeks before procedure. Omeprazole/Prilosec per med list Prep for procedure: Prep instructions sent via [employer] Marija Polanco RN Endoscopy Procedure Pre director digital marketing [phone] option 4 UCTION MACHINE TENDER documented in this encounter Plan of Treatment Upcoming Encounters Date Type Department Care Team (Late st Contact Info) Description 10/25/2023 11:30 AM CDT Virtual Visit [facility] G[facility]ology [facility] [address] [place] [address] Nelly Mesa, RD [address] [place] [address] 11/03/2023 8:00 AM CDT Office Visit [facility] [address] [place] [phone] Valery Veronica PA-C [address]09 [place] [address] 11/29/2023 8:00 AM CDT Office Visit [facility] [address] [place] [phone] Esha Grimm PA-C [phone] [place] [address] 01/02/2024 8:00 AM CDT Office Visit [facility] [address] [place] [phone] Lauren Claudio PA-C [address] [place] [address] Kelli Perez MD [address] [place], [place] [address] documented as of this encounter Visit Diagnoses Not on filedocumented in this encounter Additional Health Concerns Assessment Noted Time PHQ-9 Depression Total Score: 4 06/20/20 23 8:40 AM PRODUCTION MACHINE TENDER documented as of this encounter Care Teams Green Chain Puller Relationship Specialty Start Date End Date Esha Grimm PA-C [id number] [place] [phone] PCP - General Family Medicine 05/04/23 Diana Desir, [facility] [address] [place] [address] Pharmacist Pharmacist 04/17/21 Rain Galaviz PA-C [address] [place] [address] [address] [place] [address] Physician Retail Experience Specialist Dermatology 04/28/21 Tavia Wyatt MD [address] [place] [address] [place] [address] Dermatology 07/14/21 Erica Farrell APRN ASL INTERPRETER [address] [place] [address] Nurse Practitioner Cardiovascular Disease 09/09/21 Rich Barrett MD [address] [place] [address] [address] [place], [place] [address] Physician Ophthalmology 01/21/22 Neil Kent MD 500 [place], [place] 6[address] Dermatology 02/24/22 Diana Desir, [facility] [address] [place] [address] Assigned MTM Pharmacist 04/07/22 Livan Sharif MD [address] [place] [id number] Cardiovascular Disease 05/14/22 Catherine Cm MD [address] [place] [address] Cardiovascular Disease 07/21/22 Valery Veronica PA-C 909 [place], [place] [address]265 Physician Retail Experience Specialist Dermatology 07/21/22 Brea Quinn APRN ASL INTERPRETER [address] [place], [place] 3358[address] Nurse Practitioner Dermatology 09/21/22 Brea Quinn APRN ASL INTERPRETER 64[address] [facility] [place], [place] [address] Assigned Surgical Provider 10/09/22 [place] [address] [place] [facility] [address] [place] [address] Assigned Musculoskeletal Provider 10/09/22 Alfonso Renteria MD [address] [facility] 200 [place] [address] Assigned Neuroscience Provider 04/02/23 Radha Lomeli APRN ASL INTERPRETER 6405 [facility] [address] [place] [id number] Assigned Heart and Vascular Provider 05/28/23 Jelena David OD [address] [facility] [address] Ophthalmology 06/15/23 Pao Joseph, RN Personal Advocate & Liaison (PAL) Nurse 08/01/23 Esha Grimm PA-C [address] [place] [phone] Assigned PCP 07/16/23 documented as of this encounter
--- OUTSIDE RECORDS SUMMARY | 2023-10-15 21:50 | XMS_ITS | Encounter Summary ---
Author Name Unknown Organization [facility] Address [address] [place] [address] Care Team Providers Care Livestock Farmers Name Role Phone ThangKendrickDiana T [facility] Unavailable Rain Galaviz-C Unavailable [phone] Tavia Wyatt MD Unavailable Unavailable Erica Farrell APRN ELECTRONIC DEVICE REPAIRER Unavailable Rich Barrett MD Unavailable Neil Kent MD Unavailable Diana Desir [facility] Unavailable [phone] Livan Sharif MD Unavailable Catherine Cm MD Unavailable + Valery Veronica PA-C Unavailable [phone] Brea Quinn VIBRATING SCREED OPERATOR ELECTRONIC DEVICE REPAIRER Unavailable [phone] Brea Quinn VIBRATING SCREED OPERATOR ELECTRONIC DEVICE REPAIRER Unavailable [phone] Jose Francisco Johnson MD Unavailable Alfonso Renteria MD Unavailable + [phone] José Miguel Pritchard PA-C Primary Care Provider [phone] Radha Lomeli VIBRATING SCREED OPERATOR ELECTRONIC DEVICE REPAIRER Unavailable [phone] Jelena David OD Unavailable Pao Joseph RN Unavailable Unavailable José Miguel Pritchard PA-C Unavailable Reason for Referral * Medication Prior Authorization - Denied Specialty Diagnoses / Procedures Referred By Contparviz t Referred To Contact Diagnoses Acne, unspecified acne type José Miguel Pritchard PA-C [address] [place] [address] Referral ID Status Reason Start Date Expiration Date Visits Re quested Visits Authorized [id number] Denied 1 1 HOUSE MATERIAL HANDLER Reason for Visit * Reason Comments Anxiety Follow Up Encounter Details Date Type Department Care Team (Late st Contact Info) Description 09/01/2023 11:30 AM WAREHOUSE MATERIAL HANDLER Virtual Visit [address] [address] José Miguel Pritchard PA-C [address] [place] [address] Breast tenderness (Primary Dx); Anxiety; Acne, unspecified acne type; Vaginal discharge; Bacterial vaginosis; Screen for STD (sexually transmitted disease) Social [...] week 03/10/2023 How often do you attend [facility] or jain services? 1 to 4 times per year 03/10/2023 Do you belong to any clubs o r organizations such as confucianism groups, unions, fraternal or athletic groups, [...] Answer Date Recorded PHQ-2 Score 0 06/20/2023 [facility] of Occupat ional Health - Occupational Stress [...] exercise at this level? 30 min 03/10/2023 Glen Depression Scale Answer Date Recorded Glen Depression Score 5 01/14/2021 Last EPDS Self [...] AM CDT documented as of this encounter Progress Notes * José Miguel Pritchard PA-C - 09/01/2023 11:30 AM CST Kim is a 23 year old who is being evaluated via a billable video visit. How would you like to obtain your AVS? MyChart If the video visit is dropped, the invitation should be resent by: Text to cell phone: [phone] Will anyone else be joining your video visit? No Assessment & Plan (N64.4) Breast tenderness (primary encounter diagnosis) Discussed obtaining hormone levels such as prolactin, FSH, LH, estrogen, progesterone and testosterone levels. She has never tested these and with ongoing and worsening symptoms would be worthwhile to check. She has had numerous tests recently which have been negative, will recheck today a s well as she is sexually active. Testing ordered today, recommendations pending results. Plan: Follicle stimulating hormone, Luteinizing Hormone, Prolactin, Estradiol, Testosterone Free and Total, Progesterone (F41.9) Anxiety Ongoing anxiety concerns. She was on paroxetine which worked overall okay but continued to have anxiety with stressors so was attempting to switch to Effexor but did not tolerate medication. She is now currently on paroxetine 20 mg daily, previously was on 40 mg daily. Anxiety has been pretty severe since attempting to switch medications two weeks ago. She has needed to call the ambulance 3 timesin the past two weeks. With increased symptoms will increase paroxetine back to 40 mg dose and she is going to follow up with Diana in two weeks as scheduled. Did discuss she would potentially benefit from Psychiatry visit as well given issues with medications in the past and ongoing inadequate control. (L70.9) Acne, unspecified acne type Recently having more issues with acne on her face. Will given topicals for acne. If not improving can give Dermatology referral in the future. Plan: clindamycin (CLEOCIN T) 1 % external lotion, tretinoin (RETIN-A) 0.05 % external cream BMI Estimated body mass index is 29.86 kg/m?? as calculated from the following: Height as of 08/01/23: 1.676 m (5' 6). Weight as of 08/01/23: 83.9 kg (185 lb). Follow up based on result from today's visit. Dario Alvarez is a 23 year old, presenting for the following health issues: Anxiety and Follow Up 09/01/2023 10:54 AM Additional Questions Roomed by Iman Flores History of Present Illness Reason for visit: Continued/worsened symtpoms She eats 2-3 servings of fruits and vegetables daily.She consumes 1 sweetened beverage(s) daily.Sheexercises with enough effort to increase her heart rate 10 to 19 minutes per day. She exercises with enough effort to increase her heart rate 3 or less days per week. She is taking medications regularly. HPI General Follow Up Concern: hormonal changes Problem started: follow up from 07/14/2023 Progression of symptoms: worse Description: Patient states she has all the same symptoms she's been having. But now she states herbreast hurts and her acne has gotten worse Anxiety Follow-Up How are you doing with your anxiety since your last visit? Worsened Are you having other symptoms that might be associated with anxiety? Panic attacks Are you feeling depressed? Mild only after having anxiety Do you have any concerns with your use of alcohol or other drugs? No Social History Tobacco Use Smoking status: Former Packs/day: 1 Types: Other, Cigarettes Quit date: 12/07/2019 Years since quittin.7 Passive exposure: Past Smokeless tobacco: Never Vaping Use Vaping Use: Never used Substance Use Topics Alcohol use: Not Currently Drug use: No 03/10/2023 6:50 AM 06/20/2023 8:40 AM 09/01/2023 10:57 AM KALYN-7 SCORE Total Score 3 (minimal anxiety) 4 (minimal anxiety) Total Score 3 4 6 05/02/2023 9:30 AM 05/16/2023 9:28 AM 06/20/2023 8:40 AM PHQ PHQ-9 Total Score 5 6 4 Q9: Thoughts of better off /self-harm past 2 weeks Not at all Not at all Not at all Review of Systems Constitutional, HEENT, cardiovascular, pulmonary, gi and gu systems are negative, except as otherwise noted. Objective Vitals: No vitals were obtained today due to virtual visit. Physical Exam GENERAL: alert and no distress EYES: Eyes grossly normal to inspection. No discharge or erythema, or obvious scleral/conjunctival abnormalities. RESP: No audible wheeze, cough, or visible cyanosis. SKIN: Visible skin clear. No significant rash, abnormal pigmentation or lesions. NEURO: Cranial nerves grossly intact. Mentation and speech appropriate for age. PSYCH: Appropriate affect, tone, and pace of words Video-Visit Details Type of service: Video Visit Originating Location (pt. Location): Home Distant Location (provider location): On-site Platform used for Video Visit: [facility] Signed Electronically by: José Miguel Pritchard PA-C HOUSE MATERIAL HANDLER documented in this encounter Miscellaneous Notes * Addendum Note - José Miguel Pritchard PA-C - 09/01/2023 11:30 AM CSTAddended by: JOSÉ MIGUEL PRITCHARD on: 09/02/2023 09:28 AM Modules accepted: Orders HOUSE MATERIAL HANDLER documented in this encounter Plan of Treatment Upcoming Encounters Date Type Department Care Team (Late st Contact Info) Description 10/25/2023 11:30 AM CDT Virtual Visit [facility] [address] [place] [address] [place] [place], RD [address] [place] [address] 11/03/2023 8:00 AM CDT Office Visit [facility] [address] [place] [phone] Valery Veronica PA-C [address] [place] [address] 11/29/2023 8:00 AM CDT Office Visit [facility] [address] [place] [address] José Miguel Pritchard PA-C [address] [place] [address] 01/02/2024 8:00 AM CDT Office Visit [facility] [address] [place] [phone] Lauren Claudio PA-C [address] [place] [address] Kelli Perez MD [address] [place], [place] [id number] documented as of this encounter Procedures Procedure Name Priority Date/Time Associated Diagnosis Comments CHLAMYDIA TRACHOMATIS/NEISSERI A GONORRHOEAE BY PCR Routine 09/01/2023 2:31 PM WAREHOUSE MATERIAL HANDLER Screen for STD (sexually transmitted disease) WET PREPARATION Routine 09/01/2023 2:31 PM WAREHOUSE MATERIAL HANDLER Vaginal discharge Screen for STD (sexually transmitted disease) documented in this encounter Results * Chlamydia & Gonorrhea by PCR, [facility] - Clinic Collect (09/01/2023 2:31 PM WAREHOUSE MATERIAL HANDLER) Chlamydia Trachomatis Negative Negative 09/02/2023 12:32 PM WAREHOUSE MATERIAL HANDLER [facility] Comment: Negative for C. trachomatis rRNA by blasting entry specialist mediated amplification. A negative result by blasting entry specialist mediated amplification does not preclude the presence of infection because results are dependent on proper and adequate collection, absence of inhibitors and sufficient rRNA to be detected. Neisseria gonorrhoeae Negative Negative 09/02/2023 12:32 PM WAREHOUSE MATERIAL HANDLER [facility] Comment:Negative for N. gono rrhoeae rRNA by blasting entry specialist mediated amplification. A negative result by blasting entry specialist mediated amplification does not preclude the presence of C. trachomatis infection because results are dependent on proper and adequate collection, absence of inhibitors and sufficient rRNA to be detected. Swab VAGINAL STRUCTURE / Unknown Non-blood Collection / Unknown 09/01/2023 2:31 PM WAREHOUSE MATERIAL HANDLER 09/01/2023 2:32 PM WAREHOUSE MATERIAL HANDLER José Miguel Pritchard PA-C LAB - MICRO GENERAL ORDERABLES [facility] Inf. Diseases Diag. Lab [address] [facility], [address] [place] [address], [place] [phone] * (ABNORMAL) Wet prep - Clinic Collect (09/01/2023 2:31 PM WAREHOUSE MATERIAL HANDLER) Trichomonas Absent Absent REINA 09/01/2023 2:52 PM WAREHOUSE MATERIAL HANDLER CR LAB[facility]ATORY Yeast Absent Absent [facility] 09/01/2023 2:52 PM WAREHOUSE MATERIAL HANDLER [facility] Clue Cells Present(A) Absent [facility] 09/01/2023 2:52 PM WAREHOUSE MATERIAL HANDLER [facility] WBCs/high power field 1+(A) None [facility] 09/01/2023 2:52 PM WAREHOUSE MATERIAL HANDLER [facility] Swab VAGINAL STRUCTURE / Unknown Non-blood Collection / Unknown 09/01/2023 2:31 PM WAREHOUSE MATERIAL HANDLER 09/01/2023 2:31 PM WAREHOUSE MATERIAL HANDLER José Miguel Pritchard PA-C LAB - MICRO GENERAL ORDERABLES CR LAB[facility]ATORY [facility] [address] [facility] (no room number, 1st floor of clinic) [place] [address], [place] [phone] * Treponema Abs w Reflex to RPR and Titer (09/01/2023 2:25 PM WAREHOUSE MATERIAL HANDLER) Pathologist [facility] Treponema Antibody Total Nonreactive Nonreactive 09/01/2023 6:05 PM WAREHOUSE MATERIAL HANDLER SPECIALTY CORE/PROT/EN DO Blood BLOOD SPECIMEN / Unknown Venipuncture / Unknown 09/01/2023 2:25 PM WAREHOUSE MATERIAL HANDLER 09/01/2023 2:25 PM WAREHOUSE MATERIAL HANDLER José Miguel Pritchard PA-C LAB - BLOOD ORDERABL ES SPECIALTY CORE/PROT/ENDO Specialty Core/Prot/Endo [address] [facility], [address] [address], [facility] [phone] * HIV Antigen Antibody Combo (09/01/2023 2:25 PM WAREHOUSE MATERIAL HANDLER) [facility] HIV Antigen Antibody Combo Nonreactive Nonreactive 09/01/2023 5:50 PM WAREHOUSE MATERIAL HANDLER [facility] Comment:Negative HIV-1/-2 an tigen and antibody screening test results usually indicate the absence of HIV-1 and HIV-2 infection. However, such negative results do not rule-out acute HIV infection. If acute HIV-1 or HIV-2 infection is suspected, detection of HIV-1 or HIV-2 RNA is recommended. Blood BLOOD SPECIMEN / Unknown Venipuncture / Unknown 09/01/2023 2:25 PM WAREHOUSE MATERIAL HANDLER 09/01/2023 2:25 PM WAREHOUSE MATERIAL HANDLER José Miguel Pritchard PA-C LAB - BLOOD ORDERABL ES [facility] [address] [facility], [address] [address], [facility] [phone] * Progesterone (09/01/2023 2:25 PM WAREHOUSE MATERIAL HANDLER) Pathologist [facility] Progesterone 0.3 ng/mL 09/01/2023 7:34 PM WAREHOUSE MATERIAL HANDLER [facility] Comment: Healthy Postmenopausal Women Postmenopause: [...] Unknown Venipuncture / Unknown 09/01/2023 2:25 PM WAREHOUSE MATERIAL HANDLER 09/01/2023 2:25 PM WAREHOUSE MATERIAL HANDLER José Miguel Pritchadr PA-C LAB - BLOOD ORDERABL ES U LAB[facility]AT[facility] Core Lab [address] [facility], [address] [address] [phone] * Estradiol (09/01/2023 2:25 PM WAREHOUSE MATERIAL HANDLER) [facility] Estradiol 14 pg/mL 09/01/2023 7:34 PM WAREHOUSE MATERIAL HANDLER [facility] Comment: Healthy Men: 11.3-43.2 pg/mL Healthy Postmenopausal Women: Postmenopause: <5-138 pg/mL Healthy Women: 1st trimester: 154-3243 pg/mL 2nd trimester: 1561-92242 pg/mL 3rd trimester: 8525->52292 pg/mL Healthy Women Cycle Phase: Follicular: 30.9-90.4 pg/mL Ovulation: 60.4-533 pg/mL Luteal: 60.4-232 pg/mL Healthy Women Cycle Sub-Phase: Early Follicular: 20.5-62.8 pg/mL Intermediate Follicular: 26-79.8 pg/mL Late Follicular: 49.5-233 pg/mL Ovulation: 60.4-602 pg/mL Early Luteal: 51.1-179 pg/mL Intermediate Luteal: 66.5-305 pg/mL Late Luteal: 30.2-222 pg/mL Blood BLOOD SPECIMEN / Unknown Venipuncture / Unknown 09/01/2023 2:25 PM WAREHOUSE MATERIAL HANDLER 09/01/2023 2:25 PM WAREHOUSE MATERIAL HANDLER José Miguel Pritchard PA-C LAB - BLOOD ORDERABL ES Performing Organization Address City/[facility]/ZIP Co de Phone Number U [facility]AT[facility] Lab [address] [facility], [address] [address], [facility] [phone] * Prolactin (09/01/2023 2:25 PM WAREHOUSE MATERIAL HANDLER) Prolactin 6 5 - 23 ng/mL 09/01/2023 7:34 PM WAREHOUSE MATERIAL HANDLER [facility] Blood BLOOD SPECIMEN / Unknown Venipuncture / Unknown 09/01/2023 2:25 PM WAREHOUSE MATERIAL HANDLER 09/01/2023 2:25 PM WAREHOUSE MATERIAL HANDLER José Miguel Pritchard PA-C LAB - BLOOD ORDERABL ES Performing Organization Address City/[facility] Co de Phone Number [facility] [address] [facility], [address] [address], [facility] [phone] * Luteinizing Hormone (09/01/2023 2:25 PM WAREHOUSE MATERIAL HANDLER) Luteinizing Hormone 4.4 mIU/mL 09/01/2023 7:34 PM WAREHOUSE MATERIAL HANDLER [facility] Comment: FEMALE: Age 0 - 6 mo: ??<0.1-8.2 mIU/mL 6 mo - 11 years: <0.1-1.3 mIU/mL 11 - 14 years: <0.1-10 mIU/mL 14 - 19 years: 0.4-25 mIU/mL 19 years and older: Follicular Phase: 2.4-12.6 mIU/mL Ovulation Phase: 14.0-95.6 mIU/mL Luteal Phase: 1.0-11.4 ??mIU/mL Postmenopausal: 7.7-58.5 mIU/mL Blood BLOOD SPECIMEN / Unknown Venipuncture / Unknown 09/01/2023 2:25 PM WAREHOUSE MATERIAL HANDLER 09/01/2023 2:25 PM WAREHOUSE MATERIAL HANDLER José Miguel Pritchard PA-C LAB - BLOOD ORDERABL ES Performing Organization Address [facility] Co de Phone Number LABORATORY [facility] Core Lab [address] [facility], [address] [address], [facility] [phone] * Follicle stimulating hormone (09/01/2023 2:25 PM WAREHOUSE MATERIAL HANDLER) FSH 4.5 mIU/mL 09/01/2023 7:34 PM WAREHOUSE MATERIAL HANDLER [facility] Comment: 19 years and older: Follicular phase: 3.5-12.5 mIU/mL Ovulation phase: 4.7-21.5 mIU/mL Luteal phase: 1.7-7.7 mIU/mL Postmenopause: 25.8-134.8 mIU/mL Blood BLOOD SPECIMEN / Unknown Venipuncture / Unknown 09/01/2023 2:25 PM WAREHOUSE MATERIAL HANDLER 09/01/2023 2:25 PM WAREHOUSE MATERIAL HANDLER José Miguel Pritchard PA-C LAB - BLOOD ORDERABL ES Performing Organization Address [facility] Co de Phone Number LABORATORY [facility] [address] [place] [address], [address] [address], [facility] [phone] documented in this encounter Visit Diagnoses Diagnosis Breast tenderness- Primary Mastodynia Anxiety Anxiety state, unspecified Acne, unspecified acne type Vaginal discharge Leukorrhea, not specified as infective Bacterial vaginosis Vaginitis and vulvovaginitis, unspecified Screen for STD (sexually transmitted disease) Screening examination for venereal disease documented in this encounter Additional Health Concerns Assessment Noted Time PHQ-9 Depression Total Score: 4 06/20/20 23 8:40 AM WAREHOUSE MATERIAL HANDLER documented as of this encounter Care Teams Livestock Farmers Relationship Specialty Start Date End Date José Miguel Pritchard PA-C [address] [place] [phone] PCP - General Family Medicine 05/04/23 Diana Desir, [facility] [address] [place] [address] Pharmacist Pharmacist 04/17/21 Rain Galaviz PA-C [address] [place] [address] [address] [place] [address] Physician Inspector Insulation Dermatology 04/28/21 Tavia Wyatt MD [address] [place] [address] [address] [place] [address] Dermatology 07/14/21 Erica Farrell APRN ELECTRONIC DEVICE REPAIRER [address] [place], [place] [address] Nurse Practitioner Cardiovascular Disease 09/09/21 Rich Barrett MD [address] [place] [address] [address] [place], [place] [address] Physician Ophthalmology 01/21/22 Neil Kent MD [address] [place] [address] Dermatology 02/24/22 Diana Desir, [facility] [address] [place] [address] Assigned MTM Pharmacist 04/07/22 Livan Sharif MD [address] [facility] [address] [place] [address] Cardiovascular Disease 05/14/22 Catherine Cm MD [address] [facility] [address] [place] [address] Cardiovascular Disease 07/21/22 Valery Veronica PA-C [address] [place] [address] Physician Inspector Insulation Dermatology 07/21/22 Brea Quinn APRN ELECTRONIC DEVICE REPAIRER [address] [place] [address] Nurse Practitioner Dermatology 09/21/22 Brea Quinn APRN ELECTRONIC DEVICE REPAIRER [address] [place] [address] Assigned Surgical Provider 10/09/22 [place] [address] [address] [facility] [address] [place] [address] Assigned Musculoskeletal Provider 10/09/22 Alfonso Renteria MD [address] [facility] [address] [place] [address] Assigned Neuroscience Provider 04/02/23 Radha Lomeli APRN ELECTRONIC DEVICE REPAIRER [address] [facility] [address] [place] [address] Assigned Heart and Vascular Provider 05/28/23 Jelena David OD [address] [facility] [place] [place] [address] Ophthalmology 06/15/23 Pao oJseph, VJ Personal Advocate & Liaison (PAL) Nurse 08/01/23 José Miguel Pritchard PA-C [address] [place] [address] Assigned PCP 07/16/23 documented as of this encounter
--- OUTSIDE RECORDS SUMMARY | 2023-10-15 21:50 | XMS_ITS | Encounter Summary ---
Author Name Unknown Organization [place] Address [address] [place] [address] Care Team Providers Care Studio Model Name Role Phone ThangKendrickDiana T [facility] Unavailable Rain Galaviz-C Unavailable Tavia Wyatt MD Unavailable Unavailable Erica Farrell APRN REPAIR WEAVER Unavailable Rich Barrett MD Unavailable Neil Kent MD Unavailable Diana Desir [facility] Unavailable [phone] Livan Sharif MD Unavailable Catherine Cm MD Unavailable + Valery Veronica PA-C Unavailable [phone] Brea Quinn CHIP SILO TENDER REPAIR WEAVER Unavailable Brea Quinn CHIP SILO TENDER REPAIR WEAVER Unavailable [phone] Jose Francisco Johnson MD Unavailable Alfonso Renteria MD Unavailable + [phone] Esha Grimm PA-C Primary Care Provider [phone] Radha Lomeli CHIP SILO TENDER REPAIR WEAVER Unavailable FrankieJelena OD Unavailable Pao Joseph RN Unavailable Unavailable Alfa Eshalincoln Medina PA-C Unavailable [phone] Valery Veronica PA-C Unavailable [phone] Rey Tay MD Unavailable DuaneRocky Unavailable Philip Dumont MD Unavailable [phone] Encounter Details Date Type Department Care Team (Late st Contact Info) Description 08/25/2023 MyC Medical Advice [facility] [address]th [place] [address] Marija Polanco RN Social History [...] often do you attend chur ch or islam services? 1 to 4 times per year [...] Answer Date Recorded PHQ-2 Score 0 06/20/2023 [facility] of Occupat [facility] - Occupational Stress Questionnaire Answer [...] exercise at this level? 30 min 03/10/2023 [place] Depression Scale Answer Date Recorded [place] Depression Score 5 01/14/2021 Last EPDS Self [...] Description 10/25/2023 11:30 AM CDT Virtual Visit [facility] [address] 4th [place] [phone] Nelly Mesa, RD [address] [place] [address] 11/03/2023 8:00 AM CDT Office Visit [address] [phone] Valery Veronica PA-C [address] [place] [address] 11/29/2023 8:00 AM CDT Office Visit [facility] [address] [place] [phone] Esha Grimm PA-C [address] [place] [phone] 01/02/2024 8:00 AM CDT Office Visit [facility] Sleep [facility] [address] [place] [phone] Lauren Claudio PA-C [address] [place], [place] [phone] Kelli Perez MD [address] [place] [address] 230424 documented as of this encounter Visit Diagnoses Not on filedocumented in this encounter Additional Health Concerns Assessment Noted Time PHQ-9 Depression Total Score: 4 06/20/20 23 8:40 AM SPONGE PACKER documented as of this encounter Care Teams Studio Model Relationship Specialty Start Date End Date Esha Grimm PA-C [address] [place] [address] PCP - General Family Medicine 05/04/23 Diana Desir, [facility] [address] [place] [address] Pharmacist Pharmacist 04/17/21 Rain Galaviz PA-C [address] [place] [address] [address] [place] [address] Physician Cost Control Analyst Dermatology 04/28/21 Tavia Wyatt MD [address] [place] [address] [address] [place] [address] Dermatology 07/14/21 Erica Farrell APRN REPAIR WEAVER [address] [facility] [address] [place], [place] 4720[address] Nurse Practitioner Cardiovascular Disease 09/09/21 Rich Barrett MD 516 [facility], [facility] [address]A [place], [place] 826[address] Physician Ophthalmology 01/21/22 Neil Kent MD [address] [place], [place] 938125 Dermatology 02/24/22 Diana Desir, [facility] 3033 [place], [place] 290306 Assigned MTM Pharmacist 04/07/22 Livan Sharif MD [address] [facility] [address], [facility] [address] [place], [place] 8276[address] Cardiovascular Disease 05/14/22 Catherine Cm MD [address] [facility] [address] [place], [place] 239925 Cardiovascular Disease 07/21/22 Valery Veronica, PAUcheC 909 [place], [place] 772735 Physician Cost Control Analyst Dermatology 07/21/22 Brea Quinn APRN REPAIR WEAVER 500 [place], [place] 224045 Nurse Practitioner Dermatology 09/21/22 Brea Quinn APRN REPAIR WEAVER [address] [place] [address] 881772 Assigned Surgical Provider 10/09/22 [place] [address] [address] [facility] 300 [place] [address] Assigned Musculoskeletal Provider 10/09/22 Alfonso Renteria MD 5775 [facility] 200 [place], [place] 193096 Assigned Neuroscience Provider 04/02/23 Lomeli, Radha E, CHIP SILO TENDER REPAIR WEAVER [address] [place], [place] 679035 Assigned Heart and Vascular Provider 05/28/23 Jelena David OD [address] [facility] [place] [address] MD Ophthalmology 06/15/23 Pao Joseph, VJ Personal Advocate & Liaison (PAL) Nurse 08/01/23 Esha Grimm PA-C [address] [place] [phone] Assigned PCP 07/16/23 Valery Veronica PA-C 909 [place], [place] 027805 Physician Cost Control Analyst Dermatology 09/19/23 Rey Tay MD [address] [place] [address] 965935 Gastroenterology 09/20/23 Rocky Zepeda DO [address] [place] [address] 623115 Physician Gastroenterology 09/20/23 Philip Dumont MD [address] [place] [address] 877345 Physician Ophthalmology 09/22/23 documented as of this encounter
--- OUTSIDE RECORDS SUMMARY | 2023-10-15 21:50 | XMS_ITS | Encounter Summary ---
Author Name Unknown Organization [place] Address [address] [place] [address] Care Team Providers Care Sandblaster Paint Sprayer Name Role Phone ThangKendrickDiana T [facility] Unavailable Rain Galaviz-C Unavailable Tavia Wyatt MD Unavailable Unavailable Erica Farrell APRN SENIOR UI UX DESIGNER Unavailable Rich Barrett MD Unavailable Neil Kent MD Unavailable Diana Desir [facility] Unavailable [phone] Livan Sharif MD Unavailable Catherine Cm MD Unavailable + Valery Veronica PA-C Unavailable [phone] Brea Quinn [employer] SENIOR UI UX DESIGNER Unavailable Brea Quinn [employer]ORER [employer] SENIOR UI UX DESIGNER Unavailable Jose Francisco Johnson MD Unavailable Alfonso Renteria MD Unavailable + [phone] Esha Grimm PA-C Primary Care Provider [phone] Radha Lomeli LABORER [employer] SENIOR UI UX DESIGNER Unavailable FrankieJelena OD Unavailable [phone] Pao Joseph RN Unavailable Unavailable Alfa Eshalincoln Medina PA-C Unavailable [phone] Valery Veronica PA-C Unavailable [phone] Rey Tay MD Unavailable DuaneRocky Unavailable Philip Dumont MD Unavailable [phone] Encounter Details Date Type Department Care Team (Late st Contact Info) Description 08/25/[address] [facility] Gastroenterology [facility] [address] [place] [address] Marija Polanco RN Social History [...] often do you attend chur ch or yarsani services? 1 to 4 times per year 03/10/2023 Do you belong to any clubs o r organizations such as mu-ism groups, unions, fraternal or athletic groups, [...] Score 0 06/20/2023 [facility] of Occupat [facility] - Occupational Stress Questionnaire [...] exercise at this level? 30 min 03/10/2023 [place] Depression Scale Answer Date Recorded [place] Depression Score 5 01/14/2021 Last EPDS [...] 10/25/2023 11:30 AM CDT Virtual Visit [facility] [address] 4th [place] [phone] Nelly Mesa, RD [address] [place] [address] 11/03/2023 8:00 AM CDT Office Visit [address] [phone] Valery Veronica PA-C [address] [place] [address] 11/29/2023 8:00 AM CDT Office Visit [facility] [address] [place] [address] [phone] Esha Grmim PA-C [address] [place] [phone] 01/02/2024 8:00 AM CDT Office Visit [facility] Sleep [facility] [address] [place] [phone] Lauren Claudio PA-C [address] [place], [place] [phone] Kelli Perez MD [address] [place] [address] 080124 documented as of this encounter Visit Diagnoses Not on filedocumented in this encounter Additional Health Concerns Assessment Noted Time PHQ-9 Depression Total Score: 4 06/20/20 23 8:40 AM B2B APPOINTMENT SETTER documented as of this encounter Care Teams Sandblaster Paint Sprayer Relationship Specialty Start Date End Date Esha Grimm PA-C [address] [place] [address] PCP - General Family Medicine 05/04/23 Diana Desir, [facility] [address] [place] [address] Pharmacist Pharmacist 04/17/21 Rain Galaviz PA-C [address] [place] [address] [address] [place] [address] Physician Occupational Health Nurse Manager Dermatology 04/28/21 Tavia Wyatt MD [address] [place] [address] [address] [place] [address] Dermatology 07/14/21 Erica Farrell APRN SENIOR UI UX DESIGNER [address] [facility] [address] [place], [place] 122415 Nurse Practitioner Cardiovascular Disease 09/09/21 Rich Barrett MD 516 [facility] 9A [place], [place] 856015 Physician Ophthalmology 01/21/22 Neil Kent MD 500 [place], [place] 797675 Dermatology 02/24/22 Diana Desir, [facility] 3033 [place], [place] 183396 Assigned MTM Pharmacist 04/07/22 Livan Sharif MD [address] [facility] [address], [facility] [address] [place], [place] 801545 Cardiovascular Disease 05/14/22 Catherine Cm MD [address] [facility] [address] [place], [place] 427495 Cardiovascular Disease 07/21/22 Valery Veronica, PAUcheC 909 [place], [place] 470995 Physician Occupational Health Nurse Manager Dermatology 07/21/22 Brea Quinn APRN SENIOR UI UX DESIGNER 500 [place], [place] 339545 Nurse Practitioner Dermatology 09/21/22 Brea Quinn APRN SENIOR UI UX DESIGNER [address] [place] [address] 963532 Assigned Surgical Provider 10/09/22 [place] [address] [address] [facility] 300 [place] [address] Assigned Musculoskeletal Provider 10/09/22 Alfonso Renteria MD 5775 [facility] 200 [place], [place] 476176 Assigned Neuroscience Provider 04/02/23 Lomeli, Radha E, LABOR[employer] SENIOR UI UX DESIGNER [address] [place], [place] 435885 Assigned Heart and Vascular Provider 05/28/23 Jelena David OD [address] [place] [address] MD Ophthalmology 06/15/23 Pao Joseph, VJ Personal Advocate & Liaison (PAL) Nurse 08/01/23 Esha Grimm PA-C [address] [place] [phone] Assigned PCP 07/16/23 Valery Veronica PA-C 909 [place], [place] 797985 Physician Occupational Health Nurse Manager Dermatology 09/19/23 Rey Tay MD [address] [place] [address] 298685 Gastroenterology 09/20/23 Rocky Zepeda DO [address] [place] [address] 892445 Physician Gastroenterology 09/20/23 Philip Dumont MD [address] [place] [address] 734855 Physician Ophthalmology 09/22/23 documented as of this encounter
--- OUTSIDE RECORDS SUMMARY | 2023-10-15 21:50 | XMS_ITS | Encounter Summary ---
Author Name Unknown Organization [place] Address [address] [place] [address] Care Team Providers Care Pin Drafting Machine Tender Name Role Phone ThangKendrickDiana T [facility] Unavailable Rain Galaviz-C Unavailable [phone] Tavia Wyatt MD Unavailable Unavailable Erica Farrell APRN RABBIT DRESSER Unavailable Rich Barrett MD Unavailable Neil Kent MD Unavailable Diana Desir [facility] Unavailable [phone] Livan Sharif MD Unavailable Catherine Cm MD Unavailable + Valery Veronica PA-C Unavailable [phone] Brea Quinn EMS DIRECTOR RABBIT DRESSER Unavailable [phone] Brea Quinn EMS DIRECTOR RABBIT DRESSER Unavailable Jose Francisco Johnson MD Unavailable Alfonso Renteria MD Unavailable + [phone] Esha Grimm PA-C Primary Care Provider [phone] Radha Lomeli EMS DIRECTOR RABBIT DRESSER Unavailable [phone] Jelena David OD Unavailable Pao Joseph RN Unavailable Unavailable Esha Grimm PAUcheC Unavailable [phone] Encounter Details Date Type Department Care Team (Late st Contact Info) Description 08/25/2023 Telephone [facility] [address], [address] [place] [address] Alfonso Renteria MD 57[address] [facility] [address] [place] [address] Social History Tobacco Use Types [...] often do you attend chur ch or adventism services? 1 to 4 times per year 03/10/2023 Do you belong to any clubs o r organizations such as taoism groups, unions, fraternal or athletic groups, [...] Answer Date Recorded PHQ-2 Score 0 06/20/2023 [facility] [place] of Occupat ional Health - Occupational Stress [...] exercise at this level? 30 min 03/10/2023 [place] Depression Scale Answer Date Recorded [place] Depression Score 5 01/14/2021 Last EPDS Self [...] encounter Miscellaneous Notes * Telephone Encounter - Clement Fernandez RN - 08/26/2023 5:35 PM CST Call placed to patient She needs a letter that show the timeline of when information was sent to the clinic, and when it was sent from the clinic. This will be presented in a case to show that she did not intentionally avoid having the paperwork completed. Letter can be placed in [email or web address] I reviewed the timeline with the patient from what is visible to me through [employer]. Patient feels there were additional phone calls prior to the initial form submission Letter written TERING CONTRACTOR * Telephone Encounter - Caroline Cook - 08/26/2023 1:55 PM CST Patient is requesting a call back after 4pm. TERING CONTRACTOR * Telephone Encounter - Clement Fernandez RN - 08/26/2023 10:12 AM CST Call placed, message left with call back number TERING CONTRACTOR * Telephone Encounter - Caroline Cook - 08/25/2023 12:28 PM CST Kim Johnson is calling regarding obtaining a letter from Dr. Renteria to provide to a duty officer pertaining to a driving after suspension ticket she'd received while in the process of having her DMV forms completed. Patient is requesting a call from nursing staff to discuss what is needed in this letter. Patient can be reached at [phone]. TERING CONTRACTOR documented in this encounter Plan of Treatment Upcoming Encounters Date Type Department Care Team (Late st Contact Info) Description 10/25/2023 11:30 AM CDT Virtual Visit [facility] Tony [address] [facility] 4th [place] [phone] Nelly Mesa, RD 909 [place] [address] 11/03/2023 8:00 AM CDT Office Visit [facility] [address] [place] [phone] Valery Veronica PA-C [address] [place] [address] 11/29/2023 8:00 AM CDT Office Visit [facility] [address] [place] [phone] Esha Grimm PA-C [address] [place] [phone] 01/02/2024 8:00 AM CDT Office Visit [facility] [address] [place] [phone] Lauren Claudio PA-C [address] [place] [address] Kelli Perez MD [address] [facility] 106 [place], [place] [phone] documented as of this encounter Visit Diagnoses Not on filedocumented in this encounter Additional Health Concerns Assessment Noted Time PHQ-9 Depression Total Score: 4 06/20/20 23 8:40 AM PLASTERING CONTRACTOR documented as of this encounter Care Teams Pin Drafting Machine Tender Relationship Specialty Start Date End Date Esha Grimm PA-C [address] [place] [address] PCP - General Family Medicine 05/04/23 Diana Desir, [facility] [address] [place] [address] Pharmacist Pharmacist 04/17/21 Rain Galaviz PA-C [address] [place] [address] [address] [place] [address] [address] Delivery Service Driver Dermatology 04/28/21 Tavia Wyatt MD [address] [place] [address] [place] [address] Dermatology 07/14/21 Erica Farrell APRN RABBIT DRESSER [address] [place] [address] Nurse Practitioner Cardiovascular Disease 09/09/21 Rich Barrett MD [address] [place] [address] 451815 Physician Ophthalmology 01/21/22 Neil Kent MD [address] [place] [address] 452945 Dermatology 02/24/22 Diana Desir, [facility] [address] [place] [address] Assigned MTM Pharmacist 04/07/22 Livan Sharif MD [address] [place] 302055 Cardiovascular Disease 05/14/22 Catherine Cm MD [address] [facility] [facility] [address] [place] 972925 Cardiovascular Disease 07/21/22 Valery Veronica, PAUcheC 909 [place], [place] 772485 Physician Route Delivery Service Driver Dermatology 07/21/22 Brea Quinn APRN RABBIT DRESSER 500 [place], [place] [phone] Nurse Practitioner Dermatology 09/21/22 Brea Quinn APRN RABBIT DRESSER 6401 [facility] [place] [address]782 Assigned Surgical Provider 10/09/22 [place] [address] [place], [place] 801407 Assigned Musculoskeletal Provider 10/09/22 Alfonso Renteria MD 5775 [facility] [address] [place], [place] 87[address] Assigned Neuroscience Provider 04/02/23 Radha Lomeli APRN RABBIT DRESSER 6405 [facility] [address] [place] 613135 Assigned Heart and Vascular Provider 05/28/23 Jelena David OD 3305 [facility] [place] [address] Ophthalmology 06/15/23 Pao Joseph, RN Personal Advocate & Liaison (PAL) Nurse 08/01/23 Esha Grimm, PAUcheC [address] [place] [address]40[address]83 Assigned PCP 07/16/23 documented as of this encounter
--- OUTSIDE RECORDS SUMMARY | 2023-10-15 21:50 | XMS_ITS | Encounter Summary ---
Author Name Unknown Organization [place] Address [address] [place] [address] Care Team Providers Care Safety And Occupational Health Manager Name Role Phone ThangKendrickDiana T [facility] Unavailable Rain Galaviz-C Unavailable [phone] Tavia Wyatt MD Unavailable Unavailable Erica Farrell APRN STRUCTURAL STEEL WORKER Unavailable Rich Barrett MD Unavailable Neil Kent MD Unavailable Diana Desir [facility] Unavailable [phone] Livan Sharif MD Unavailable Catherine Cm MD Unavailable + Valery Veronica PA-C Unavailable [phone] Brea Quinn SALES CONTRACT ADMINISTRATOR STRUCTURAL STEEL WORKER Unavailable Brea Quinn SALES CONTRACT ADMINISTRATOR STRUCTURAL STEEL WORKER Unavailable [phone] Jose Francisco Johnson MD Unavailable Alfonso Renteria MD Unavailable + [phone] Esha Grimm PA-C Primary Care Provider [phone] Radha Lomeli SALES CONTRACT ADMINISTRATOR STRUCTURAL STEEL WORKER Unavailable Jelena David OD Unavailable Pao Joseph RN Unavailable Unavailable Esha Grimm PA-C Unavailable [phone] Reason for Visit * Reason Onset Date Comments Medication Question 08/25/2023 Encounter Details Date Type Department Care Team (Late st Contact Info) Description 08/25/2023 Telephone [facility] [address] [place] [address] Esha Grimm PA-C [address] [place] [address] Medication Question Social History Tobacco Use Types Packs/Day Years [...] often do you attend chur ch or spiritism services? 1 to 4 times per year 03/10/2023 Do you belong to any clubs o r organizations such as alevism groups, unions, fraternal or athletic groups, [...] Answer Date Recorded PHQ-2 Score 0 06/20/2023 [facility] [place] of Occupat ional Health - Occupational Stress [...] exercise at this level? 30 min 03/10/2023 Brighton Depression Scale Answer Date Recorded Brighton Depression Score 5 01/14/2021 Last EPDS Self [...] encounter Miscellaneous Notes * Telephone Encounter - Diana Desir [facility] - 08/25/2023 3:06 PM CST Patient reports taking 10 mg of paroxetine today and venlafaxine 37.5 mg as planned from visit yesterday. Reports she is very jittery and had a panic attack. While studying for school, she is very anxious, jittery and sweaty despite taking a lorazepam. She reports still feeling very anxious and normally never does after taking lorazepam. She feels she needs to take another lorazepam which never happens to her. She had to leave school for the day. Due to these more extreme side effects, will stop venlafaxine and instructed her to go back to taking 20 mg of paroxetine daily tomorrow. Will continue on just paroxetine for 2 weeks and she will send a [employer]Or[employer] message update for next steps if we consider escitalopram next to try instead. Diana Desir, PharmD, BCACP Medication Therapy Management Provider, [facility] [phone] NET ASSEMBLER * Telephone Encounter - Liliana David Adam - 08/25/2023 9:24 AM CST General Call Contacts Type Contact Phone/Fax 08/25/2023 09:24 AM CABINET ASSEMBLER Phone (Incoming) Kim Johnson (Self) [phone] (M) Reason for Call: questions on medication that she just started What are your questions or concerns: Would like to talk to you regarding the medication she just started and states you will know what the medication is. Date of last appointment with provider: 08/24 Could we send this information to you in [employer] or would you prefer to receive a phone call?: Patient would prefer a phone call Okay to leave a detailed message?: Yes at Cell number on file: Telephone Information: NET ASSEMBLER documented in this encounter Plan of Treatment Upcoming Encounters Date Type Department Care Team (Late st Contact Info) Description 10/25/2023 11:30 AM CDT Virtual Visit [facility] [address] 4th [place] [phone] Nelly Mesa, RD 909 [place] [address] 11/03/2023 8:00 AM CDT Office Visit [address] [phone] Valery Veronica PA-C [address] [place] [address] 11/29/2023 8:00 AM CDT Office Visit [facility] [address] [place] [phone] Esha Grimm PA-C [address] [place] [phone] 01/02/2024 8:00 AM CDT Office Visit [facility] [address] [place] [phone] Lauren Claudio PA-C [address] [place] [address] Kelli Perez MD [address] [place] [address] 178154 documented as of this encounter Visit Diagnoses Not on filedocumented in this encounter Additional Health Concerns Assessment Noted Time PHQ-9 Depression Total Score: 4 06/20/20 23 8:40 AM CABINET ASSEMBLER documented as of this encounter Care Teams Safety And Occupational Health Manager Relationship Specialty Start Date End Date Esha Grimm PA-C [address] [place] [address] PCP - General Family Medicine 05/04/23 Diana Desir, [facility] [address] Pharmacist Pharmacist 04/17/21 Rain Galaviz PA-C [address] [place] [address] DR RAZO [address] [place] [address] Physician Screening Unit Registered Nurse Dermatology 04/28/21 Tavia Wyatt MD [address] [place] [address] [address] RA[address] [place] [address] Dermatology 07/14/21 Erica Farrell APRN STRUCTURAL STEEL WORKER [address] 0734500 [place] [address] Nurse Practitioner Cardiovascular Disease 09/09/21 Rich Barrett MD 516 [facility] [place], [place] 321195 Physician Ophthalmology 01/21/22 Neil Kent MD 500 [place], [place] 982335 Dermatology 02/24/22 Diana Desir, [facility] [place] [address] Assigned MTM Pharmacist 04/07/22 Livan Sharif MD [address], [facility] [address] [place] [address] Cardiovascular Disease 05/14/22 Catherine Cm MD [address] [facility] [address] [place] 295495 Cardiovascular Disease 07/21/22 Valery Veronica, PAUcheC [address] [place] [address] 672925 Physician Screening Unit Registered Nurse Dermatology 07/21/22 Brea Quinn APRN STRUCTURAL STEEL WORKER [address] [place] [address] 814785 Nurse Practitioner Dermatology 09/21/22 Brea Quinn APRN STRUCTURAL STEEL WORKER 64[address] [facility] [place] 639582 Assigned Surgical Provider 10/09/22 [place] [address] [place] [facility] 300 [place] [address] Assigned Musculoskeletal Provider 10/09/22 Alfonso Renteria MD 5775 [facility] 200 [place], [place] 847456 Assigned Neuroscience Provider 04/02/23 Radha Lomeli APRN STRUCTURAL STEEL WORKER [address] [place] [address] Assigned Heart and Vascular Provider 05/28/23 Jelena David OD 3305 [facility] [place] [address] Ophthalmology 06/15/23 Pao Joseph, VJ Personal Advocate & Liaison (PAL) Nurse 08/01/23 Esha Grimm PAUcheC [address] [place] [phone] Assigned PCP 07/16/23 documented as of this encounter
--- OUTSIDE RECORDS SUMMARY | 2023-10-15 21:50 | XMS_ITS | Encounter Summary ---
Author Name Unknown Organization [place] Address [address] [place] [address] Care Team Providers Care Manager Meat Name Role Phone ThangKendrickDiana T [facility] Unavailable Rain Galaviz-C Unavailable [phone] Tavia Wyatt MD Unavailable Unavailable Erica Farrell APRN ENVIRONMENTAL ENGINEERING INTERN Unavailable Rich Barrett MD Unavailable Neil Kent MD Unavailable Diana Desir [facility] Unavailable [phone] Livan Sharif MD Unavailable Catherine Cm MD Unavailable + Valery Veronica PA-C Unavailable [phone] Brea Quinn PHOTOGRAPHIC ARTIST ENVIRONMENTAL ENGINEERING INTERN Unavailable Brea Quinn PHOTOGRAPHIC ARTIST ENVIRONMENTAL ENGINEERING INTERN Unavailable Jose Francisco Johnson MD Unavailable Alfonso Renteria MD Unavailable + [phone] Esha Grimm PA-C Primary Care Provider [phone] Radha Lomeli PHOTOGRAPHIC ARTIST ENVIRONMENTAL ENGINEERING INTERN Unavailable [phone] FrankieJelena OD Unavailable Pao Joseph RN Unavailable Unavailable Esha Grimm PAUcheC Unavailable Encounter Details Date Type Department Care Team (Late st Contact Info) Description 08/25/2023 MyC Medical Advice [address] [address] Diana Desir, [facility] [address] [place] [address] Social History Tobacco Use Types Packs/Day Years [...] How often do you attend chur or presybeterian services? 1 to 4 times per year [...] Answer Date Recorded PHQ-2 Score 0 06/20/2023 [facility] [place] of Occupat ional Health - Occupational Stress [...] exercise at this level? 30 min 03/10/2023 [place] Depression Scale Answer Date Recorded [place] Depression Score 5 01/14/2021 Last EPDS Self [...] Notes * Telephone Encounter - Diana Desir [facility] - 08/25/2023 3:23 PM CST See telephone encounter from today - already addressed and stopping venlafaxine. Diana Desir, PharmD, BCACP Medication Therapy Management Provider, [facility] [phone] OLOGICAL SURGERY TEACHER documented in this encounter Plan of Treatment Upcoming Encounters Date Type Department Care Team (Late st Contact Info) Description 10/25/2023 11:30 AM CDT Virtual Visit [facility] [address]th [place] [phone] Nelly Mesa, RD [address] [place] [address] 11/03/2023 8:00 AM CDT Office Visit [facility] [address] [place] [phone] Valery Veronica PA-C [address] [place] [address] 11/29/2023 8:00 AM CDT Office Visit [facility] [address] [place] [address] Esha Grimm PAUcheC [address] [place] [address] 01/02/2024 8:00 AM CDT Office Visit [facility] [place] [address] [place] [phone] Lauren Claudio PA-C [address] [place], [place] [phone] Kelli Perez MD [address] [place], [place] 998904 documented as of this encounter Visit Diagnoses Not on filedocumented in this encounter Additional Health Concerns Assessment Noted Time PHQ-9 Depression Total Score: 4 06/20/20 23 8:40 AM NEUROLOGICAL SURGERY TEACHER documented as of this encounter Care Teams Manager Meat Relationship Specialty Start Date End Date Esha Grimm PA-C [address] [place] [phone] PCP - General Family Medicine 05/04/23 [facility] 3033 [facility] [place], [place] 851606 Pharmacist Pharmacist 04/17/21 Rain Galaviz PA-C [address] [place] [address] [address] [place] [address] Physician Electric Drill Operator Dermatology 04/28/21 Tavia Wyatt MD [address] [place] [address] [address] [place] [address] Dermatology 07/14/21 Erica Farrell APRN ENVIRONMENTAL ENGINEERING INTERN 6405 [facility] [address] [place] 272445 Nurse Practitioner Cardiovascular Disease 09/09/21 Rich Barrett MD 516 [facility] 9A [place], [place] 715545 Physician Ophthalmology 01/21/22 Neil Kent MD 500 [place], [place] 849855 Dermatology 02/24/22 Diana Desir, [facility] 30[address] [place], [place] 782686 Assigned MTM Pharmacist 04/07/22 Livan Sharif MD [address] [place] 073325 Cardiovascular Disease 05/14/22 Catherine Cm MD [address]ZO [facility] [place] 688255 Cardiovascular Disease 07/21/22 Valery Veronica, PA-C 909 [place], [place] 193255 Physician Electric Drill Operator Dermatology 07/21/22 Brea Quinn APRN ENVIRONMENTAL ENGINEERING INTERN 500 [place] [address] Nurse Practitioner Dermatology 09/21/22 Brea Quinn APRN ENVIRONMENTAL ENGINEERING INTERN 6401 [facility] 542472 Assigned Surgical Provider 10/09/22 [place] [address] RAZO [address] [place] [address] Assigned Musculoskeletal Provider 10/09/22 Alfonso Renteria MD [address] 200 [place] [address] Assigned Neuroscience Provider 04/02/23 Radha Lomeli APRN ENVIRONMENTAL ENGINEERING INTERN 6405 [facility] [address] [place] [address] Assigned Heart and Vascular Provider 05/28/23 Jelena David OD [address] [facility] [place] [address] Ophthalmology 06/15/23 Pao Joseph, VJ Personal Advocate & Liaison (PAL) Nurse 08/01/23 Esha Grimm, PA-C [address] [place] [phone] Assigned PCP 07/16/23 documented as of this encounter
--- OUTSIDE RECORDS SUMMARY | 2023-10-15 21:50 | XMS_ITS | Encounter Summary ---
Author Name Unknown Organization [place] Address [address] [place] [address] Care Team Providers Care Senior Instructor Name Role Phone ThangKendrickDiana T [facility] Unavailable Rain Galaviz-C Unavailable Tavia Wyatt MD Unavailable Unavailable Erica Farrell APRN RECYCLING DIRECTOR Unavailable Rich Barrett MD Unavailable Neil Kent MD Unavailable Diana Desir [facility] Unavailable [phone] Livan Sharif MD Unavailable Catherine Cm MD Unavailable + Valery Veronica PA-C Unavailable [phone] Brea Quinn LICENSED LOAN OFFICER RECYCLING DIRECTOR Unavailable Brea Quinn LICENSED LOAN OFFICER RECYCLING DIRECTOR Unavailable Jose Francisco Johnson MD Unavailable Alfonso Renteria MD Unavailable + [phone] Esha Grimm PA-C Primary Care Provider [phone] Radha Lomeli LICENSED LOAN OFFICER RECYCLING DIRECTOR Unavailable Jelena David OD Unavailable Pao Joseph RN Unavailable Unavailable Esha Grimm PAUcheC Unavailable [phone] Encounter Details Date Type Department Care Team (Late st Contact Info) Description 08/30/2023 Telephone [facility] [address], [address] [place] [address] Alfonso Renteria MD 5798 [facility] [address] 200 [place] [address] Social History Tobacco Use Types [...] often do you attend chur ch or taoism services? 1 to 4 times per year [...] Answer Date Recorded PHQ-2 Score 0 06/20/2023 [facility] [place] of Occupat ional Health - Occupational Stress [...] exercise at this level? 30 min 03/10/2023 Clyde Depression Scale Answer Date Recorded Clyde Depression Score 5 01/14/2021 Last EPDS Self [...] encounter Miscellaneous Notes * Telephone Encounter - Caroline Cook - 08/30/2023 10:15 AM CST Kim Johnson is calling requesting a call back to discuss letter, patient would like additional information added. L INTERN documented in this encounter Plan of Treatment Upcoming Encounters Date Type Department Care Team (Late st Contact Info) Description 10/25/2023 11:30 AM CDT Virtual Visit [facility] [address]th [place] [address] Nelly Mesa, RD [address] [place] [address] 11/03/2023 8:00 AM CDT Office Visit [facility] [address] [place] [phone] Valery Veronica PA-C [address] [place] [address] 11/29/2023 8:00 AM CDT Office Visit [facility] [address] [place] [phone] Esha Grimm PA-C [address] [place] [address] 01/02/2024 8:00 AM CDT Office Visit [facility] [place] [address] [place] [phone] Lauren Claudio PA-C [address] [place] [address] Kelli Perez MD [address] [place] [address] documented as of this encounter Visit Diagnoses Not on filedocumented in this encounter Additional Health Concerns Assessment Noted Time PHQ-9 Depression Total Score: 4 06/20/20 23 8:40 AM LEGAL INTERN documented as of this encounter Care Teams Senior Instructor Relationship Specialty Start Date End Date Esha Grimm PA-C [address] [place] [phone] PCP - General Family Medicine 05/04/23 Diana Desir, [facility] [address] [place], [place] 702246 Pharmacist Pharmacist 04/17/21 Rain Galaviz PA-C [address] [place] [address] [address] [place] [address] Physician Manufacturing Job Titles Dermatology 04/28/21 Tavia Wyatt MD [address] [place] [address] [address] [place] [address] Dermatology 07/14/21 Erica Farrell APRN RECYCLING DIRECTOR 6405 [facility] [address] [place] 070465 Nurse Practitioner Cardiovascular Disease 09/09/21 Rich Barrett MD 516 [facility] 9A [place], [place] 499[address] Physician Ophthalmology 01/21/22 Neil Kent MD 500 [place], [place] 423595 Dermatology 02/24/22 Diana Desir, [facility] 3033 [place] [address] Assigned MTM Pharmacist 04/07/22 Livan Sharif MD [address] [facility] [address] [facility]00 [place] 114215 Cardiovascular Disease 05/14/22 Catherine Cm MD [address] [place] 388695 Cardiovascular Disease 07/21/22 Valery Veronica, PA-C 909 [place], [place] 230215 Physician Manufacturing Job Titles Dermatology 07/21/22 Brea Quinn APRN RECYCLING DIRECTOR 500 [place] [address] Nurse Practitioner Dermatology 09/21/22 Brea Quinn APRN RECYCLING DIRECTOR 6401 [place] [address] Assigned Surgical Provider 10/09/22 [place] [address] RAZO [address] [place] [address] Assigned Musculoskeletal Provider 10/09/22 Alfonso Renteria MD [address] [place] [address] Assigned Neuroscience Provider 04/02/23 Radha Lomeil APRN RECYCLING DIRECTOR [address] [place] [address] Assigned Heart and Vascular Provider 05/28/23 Jelena David OD [address] [place] [address] Ophthalmology 06/15/23 Pao Joseph, VJ Personal Advocate & Liaison (PAL) Nurse 08/01/23 Esha Grimm, PA-C [address] [place] [phone] Assigned PCP 07/16/23 documented as of this encounter
--- OUTSIDE RECORDS SUMMARY | 2023-10-15 21:50 | XMS_ITS | Encounter Summary ---
Author Name Unknown Organization [place] Address [address] [place] [address] Care Team Providers Care Outer Diameter Technician Name Role Phone ThangKendrickDiana T [facility] Unavailable Rain Galaviz-C Unavailable [phone] Tavia Wyatt MD Unavailable Unavailable Erica Farrell APRN MUNICIPAL BOND TRADER Unavailable Rich Barrett MD Unavailable Neil Kent MD Unavailable Diana Desir [facility] Unavailable [phone] Livan Sharif MD Unavailable Catherine Cm MD Unavailable + Valery Veronica PA-C Unavailable [phone] Brea Quinn ROBOTYPE OPERATOR MUNICIPAL BOND TRADER Unavailable Brea Quinn ROBOTYPE OPERATOR MUNICIPAL BOND TRADER Unavailable Jose Francisco Johnson MD Unavailable Alfonso Renteria MD Unavailable + [phone] Esha Grimm PA-C Primary Care Provider [phone] Radha Lomeli ROBOTYPE OPERATOR MUNICIPAL BOND TRADER Unavailable FrankieJelena OD Unavailable Pao Joseph RN Unavailable Unavailable Alfa Eshalincoln Medina PA-C Unavailable [phone] Valery Veronica PA-C Unavailable [phone] Rey Tay MD Unavailable Duane Rocky DO Unavailable Philip Dumont MD Unavailable [phone] Encounter Details Date Type Department Care Team (Late st Contact Info) Description 08/31/2023 MyC Medical Advice [facility] 5707 [facility] [address] [place] [address] Amalia Reyes RN Social History Tobacco Use Types Packs/Day [...] How often do you attend chur or anabaptist services? 1 to 4 times [...] Answer Date Recorded PHQ-2 Score 0 06/20/2023 [facility] - Occupational Stress Questionnaire Answer [...] exercise at this level? 30 min 03/10/2023 [place] Depression Scale Answer Date Recorded [place] Depression Score 5 01/14/2021 Last EPDS Self [...] Visit [facility] [address] 4th [place] [phone] Nelly Mesa, RD [address] [place] [address] 11/03/2023 8:00 AM CDT Office Visit [facility] [facility] [address] [place] [phone] Valery Veronica PA-C [address] [place] [address] 11/29/2023 8:00 AM CDT Office Visit [facility] [address] [place] [phone] Esha Grimm PA-C [address] [place] [phone] 01/02/2024 8:00 AM CDT Office Visit [facility] Sleep [facility] [address] [place] [phone] Lauren Claudio PA-C [address] [place], [place] [phone] Kelli Perez MD [address] [place] [address] documented as of this encounter Visit Diagnoses Not on filedocumented in this encounter Additional Health Concerns Assessment Noted Time PHQ-9 Depression Total Score: 4 06/20/20 23 8:40 AM QUARTER TRIMMER documented as of this encounter Care Teams Outer Diameter Technician Relationship Specialty Start Date End Date Esha Grimm PA-C [address] [place] [address] PCP - General Family Medicine 05/04/23 [facility] [place] [address] [place] [address] Pharmacist Pharmacist 04/17/21 Rain Galaviz PA-C [address] [place] [address] [address] [facility] [place] [address] Physician Inside Horticultural Specialty Grower Dermatology 04/28/21 Tavia Wyatt MD [address] [place] [address] [address] [facility] [facility] [place] [address] Dermatology 07/14/21 Erica Farrell APRN MUNICIPAL BOND TRADER [address] [place] [address] Nurse Practitioner Cardiovascular Disease 09/09/21 Rich Barrett MD 516 [facility] 9A [place], [place] 434615 Physician Ophthalmology 01/21/22 Neil Kent MD 500 [place], [place] 639835 Dermatology 02/24/22 Diana Desir, [facility] 3033 [place], [place] 893566 Assigned MTM Pharmacist 04/07/22 Livan Sharif MD [address], [facility] [address] [place], [place] 6[address] Cardiovascular Disease 05/14/22 Catherine Cm MD [address] [facility] [address] [place], [place] [address] Cardiovascular Disease 07/21/22 Valery Veronica, PAUcheC 9 [place], [place] 002585 Physician Inside Horticultural Specialty Grower Dermatology 07/21/22 Brea Quinn APRN MUNICIPAL BOND TRADER 500 [place], [place] 230845 Nurse Practitioner Dermatology 09/21/22 Brea Quinn APRN MUNICIPAL BOND TRADER [address] [place] [address] 452762 Assigned Surgical Provider 10/09/22 [place] [address] [address] [facility] 300 [place] [address] Assigned Musculoskeletal Provider 10/09/22 Alfonso Renteria MD 5775 [facility] 200 [place] [address] Assigned Neuroscience Provider 04/02/23 Radha Lomeli APRN MUNICIPAL BOND TRADER [address] [place], [place] 982345 Assigned Heart and Vascular Provider 05/28/23 Jelena David OD 3305 [facility] [place] [address] MD Ophthalmology 06/15/23 Pao Joseph, VJ Personal Advocate & Liaison (PAL) Nurse 08/01/23 Esha Grimm PA-C [address] [place] [phone] Assigned PCP 07/16/23 Valery Veronica PAUcheC 909 [place], [place] 742485 Physician Inside Horticultural Specialty Grower Dermatology 09/19/23 Rey Tay MD [address] [place] [address] 760295 Gastroenterology 09/20/23 Rocky Zepeda DO [address] [place] [address] 915775 Physician Gastroenterology 09/20/23 Philip Dumont MD [address] [place] [address] 916255 Physician Ophthalmology 09/22/23 documented as of this encounter
--- OUTSIDE RECORDS SUMMARY | 2023-10-15 21:51 | XMS_ITS | Encounter Summary ---
Author Name Unknown Organization [facility] Address [address] [place] [address] Care Team Providers Care Double Needle Stitcher Name Role Phone ThangKendrickDiana T [facility] Unavailable Rain Galaviz-C Unavailable [phone] Tavia Wyatt MD Unavailable Unavailable Erica Farrell APRN CYBER INCIDENT HANDLER Unavailable Rich Barrett MD Unavailable Neil Kent MD Unavailable Diana Desir [facility] Unavailable [phone] Livan Sharif MD Unavailable Catherine Cm MD Unavailable + Valery Veronica PA-C Unavailable [phone] Brea Quinn OXIDE FURNACE TENDER CYBER INCIDENT HANDLER Unavailable [phone] Brea Quinn OXIDE FURNACE TENDER CYBER INCIDENT HANDLER Unavailable [phone] Jose Francisco Johnson MD Unavailable Alfonso Renteria MD Unavailable + [phone] Esha Grimm PA-C Primary Care Provider [phone] Radha Lomeli OXIDE FURNACE TENDER CYBER INCIDENT HANDLER Unavailable Jelena David OD Unavailable Pao Joseph RN Unavailable Unavailable Esha Grimm PA-C Unavailable [phone] Reason for Referral * Consultation (Urgent: 3-5 Days) - Pending Review Specialty Diagnoses / Procedures Referred By Contac t Referred To Contact Diagnoses Finger pain, right Esha Grimm PA-C [address] [place] [address] Referral ID Status Reason Start Date Expiration Date V isits Requested Visits Authorized [id number] Pending Review 08/01/2023 07/31/2024 1 1 Question Answer Consult Type: Other Type: Per Protocol My Clinical Question Is: Finger Fracture Scheduling Instructions: The [facility] Orthopedic Dog Raiser will call you to coordinate your care as prescribed by your provider. A shipping services sales representative will call you within 2 business days to help you schedule your appointment, or you may contact the Dog Raiser Spool Hauler at: . Comments Please be aware that coverage of these services is subject to the terms and limitations of your health insurance plan. Call member services at your health plan with any benefit or coverage questions. The [facility] Orthopedic Dog Raiser will call you to coordinate your care as prescribed by your provider. A shipping services sales representative will call you within 2 business days to help you schedule your appointment, or you may contact the Dog Raiser Spool Hauler at: . ION HAND HELPER * Diagnostic Imaging XR (Routine) - Pending Review Specialty Diagnoses / Procedures Referred By Contac t Referred To Contact Radiology. Diagnoses Finger pain, right Procedures XR Hand Right G/E 3 Views Esha Grimm PA-C [address] [place] [address] Referral ID Status Reason Start Date Expiration Date V isits Requested Visits Authorized [id number] Pending Review 08/01/2023 07/31/2024 1 1 ION HAND HELPER Reason for Visit * Reason Comments Musculoskeletal Problem Encounter Details Date Type Department Care Team (Late st Contact Info) Description 08/01/2023 8:30 AM SECTION HAND HELPER Office Visit [facility] [address] [place] [address] Esha Grimm PA-C [address] [place] [address] Finger pain, right (Primary Dx) Social History Tobacco Use Types [...] week 03/10/2023 How often do you attend [facility] or [facility] services? 1 to 4 times per year [...] Answer Date Recorded PHQ-2 Score 0 06/20/2023 [facility] [place] of Occupat ional Health - Occupational Stress [...] exercise at this level? 30 min 03/10/2023 [place] Depression Scale Answer Date Recorded [place] Depression Score 5 01/14/2021 Last EPDS Self [...] Sign Reading Time Taken Comments Blood Pressure 113/60 08/01/2023 8:19 AM SECTION HAND HELPER Pulse 70 08/01/2023 8:19 AM SECTION HAND HELPER Temperature 36.6 ??C (97.9 ??F) 08/01/2023 8:19 AM CS T Respiratory Rate 18 08/01/2023 8:19 AM SECTION HAND HELPER Oxygen Saturation 99% 08/01/2023 8:19 AM SECTION HAND HELPER Inhaled Oxygen Concentration - - Weight 83.9 kg (185 lb) 08/01/2023 8:19 AM SECTION HAND HELPER Height 167.6 cm (5' 6) 08/01/2023 8:19 AM SECTION HAND HELPER Body Mass Index 29.86 08/01/2023 8:19 AM SECTION HAND HELPER documented in this encounter Progress Notes * Esha Grimm PA-C - 08/01/2023 8:30 AM CST Assessment & Plan (M79.644) Finger pain, right (primary encounter diagnosis) Injured finger while bowling several days ago. Abduction injury to the right little finger. Persistent pain and swelling and bruising to the finger and over the fifth MCP joint. No tenderness over the distal fifth metacarpal or any other hand/wrist tenderness. Given swelling and bruising and x-ray obtained today in clinic. Hand XR with fracture of the proximal phalanx of the right little finger, no significant displacement. No other fractures or abnormalities seen. Official radiology read pending. Based on presumed fracture patient was placed in a finger splint and jane taped in the department. DME order for ulnar/gutter splint given. Orthopedic referral for follow up provided as well. Continue to use Ibuprofen and Tylenol for pain/swelling. Plan: XR Hand Right G/E 3 Views, Wrist/Arm/Hand Bracking Supplies Order Other (comments) Follow up as needed if symptoms are not improving. Dario Alvarez is a 23 year old, presenting for the following health issues: Musculoskeletal Problem 08/01/2023 8:13 AM Additional Questions Roomed by Amy Ward Musculoskeletal Problem History of Present Illness Reason for visit: Possible fractured/broken pinky and side of hand Symptom onset: 3-7 days ago Symptoms include: Pain, bruising Symptom intensity: Severe Symptom progression: Worsening Had these symptoms before: No What makes it worse: Bending What makes it better: No She eats 2-3 servings of fruits and vegetables daily.She consumes 1 sweetened beverage(s) daily.Sheexercises with enough effort to increase her heart rate 10 to 19 minutes per day. She exercises with enough effort to increase her heart rate 3 or less days per week. She is taking medications regularly. Pain History: When did you first notice your pain? 07/29/2023 Have you seen anyone else for your pain? No How has your pain affected your ability to work? Yes Where in your body do you have pain? Right hand pinkie finger and below hand. Patient had injury during bowling on 07/29/2023. Pain score today is 8/10 with movement and pressure when not moving. Patient states she can feel something that's gross when moving. Patient states area is getting worse since last Tuesday. Review of Systems Constitutional, HEENT, cardiovascular, pulmonary, gi and gu systems are negative, except as otherwise noted. Objective BP 113/60 (BP Location: Right arm, Patient Position: Sitting, Cuff Size: Adult Regular) Pulse 70 Temp 97.9 ??F (36.6 ??C) (Oral) Resp 18 Ht 1.676 m (5' 6) Wt 83.9 kg (185 lb) LMP (LMP Unknown) SpO2 99% BMI 29.86 kg/m?? Body mass index is 29.86 kg/m??. Physical Exam GENERAL: alert and no distress RESP: no respiratory distress, no audible wheezes MS: tenderness along the right little finger and over the 5th MCP joint. Bruising noted to the finger and MCP joint with some extension along the 5th metatarsal. Pain with flexion and extension of the finger. Finger somewhat abducted-likely secondary to swelling. No other tenderness, swelling, or di scoloration of the hand or wrist. Signed Electronically by: Esha Grimm PA-C ION HAND HELPER documented in this encounter Plan of Treatment Upcoming Encounters Date Type Department Care Team (Late st Contact Info) Description 10/25/2023 11:30 AM CDT Virtual Visit [facility] [address] 4th [place] [phone] Nelly Mesa, [address] [place] [address] 11/03/2023 8:00 AM CDT Office Visit [facility] [address] [place] [phone] Valery Veronica, ROVERTO [address] [place] [address] 11/29/2023 8:00 AM CDT Office Visit [facility] [address] [place] [phone] Esha Grimm PA-C [address] [place] [phone] 01/02/2024 8:00 AM CDT Office Visit [facility] Sleep [facility] [address] [place] [phone] Lauren Claudio PA-C [address] [place], [place] [phone] Kelli Perez MD [address] [facility] 106 [place], [place] [address] Scheduled Referrals Name Type Priority Associated Diagnoses Orde r Schedule Orthopedic Dog Raiser Referral Referral Urgent: 3-5 Days Finger pain, right Expected: 08/01/2023 (Approximate), Expires: 08/01/2024 documented as of this encounter Results * XR Hand Right G/E 3 Views (08/01/2023 9:04 AM SECTION HAND HELPER) Anatomical Region Laterality Modality Hand, Wrist Right Computed Radiogr aphy Impressions 08/01/2023 10:59 AM SECTION HAND HELPER IMPRESSION: The right hand is negative for fracture or dislocation. No erosive changes. JASON ALVARADO MD SYSTEM ID: [id number] Narrative 08/01/2023 10:59 AM SECTION HAND HELPER XR HAND RIGHT G/E 3 VIEWS 08/01/2023 9:04 AM HISTORY: Finger pain, right COMPARISON: None. Procedure Note Jason Alvarado MD - 08/01/2023 XR HAND RIGHT G/E 3 VIEWS 08/01/2023 9:04 AM HISTORY: Finger pain, right COMPARISON: None. IMPRESSION: The right hand is negative for fracture or dislocation. No erosive changes. JASON ALVARADO MD SYSTEM ID: [id number] Esha Grimm PA-C IMKaye DIAGNOSTIC IMAGI NG ORDERABLES documented in this encounter Visit Diagnoses Diagnosis Finger pain, right- Primary Pain in limb Finger pain, right Pain in limb documented in this encounter Additional Health Concerns Assessment Noted Time PHQ-9 Depression Total Score: 4 06/20/20 23 8:40 AM SECTION HAND HELPER documented as of this encounter Care Teams Double Needle Stitcher Relationship Specialty Start Date End Date Esha Grimm PA-C [address] [place] [address] PCP - General Family Medicine 05/04/23 Diana Desir, [facility] [address] [facility] [place] [address] Pharmacist Pharmacist 04/17/21 Rain Galaviz PA-C [address] [place] [address] [address] [place] [address] Physician Mapping Technician Dermatology 04/28/21 Tavia Wyatt MD [address] [place] [address] [place] [address] Dermatology 07/14/21 Erica Farrell APRN CYBER INCIDENT HANDLER [address] [place] [address] Nurse Practitioner Cardiovascular Disease 09/09/21 Rich Barrett MD 516 [facility] [address] [place], [place] [address] Physician Ophthalmology 01/21/22 Neli Kent MD 500 [place], [place] 195885 Dermatology 02/24/22 Diana Desir, [facility] [address] [place], [place] 28[address] Assigned [place] Pharmacist 04/07/22 Livan Sharif MD [address] [place] [address] Cardiovascular Disease 05/14/22 Catherine Cm MD [address] [place] [address] Cardiovascular Disease 07/21/22 Valery Veronica PAUcheC [address] [place], [place] 4[address] Physician Mapping Technician Dermatology 07/21/22 Brea Quinn APRN CYBER INCIDENT HANDLER 500 [place], [place] 874[address] Nurse Practitioner Dermatology 09/21/22 Brea Quinn APRN CYBER INCIDENT HANDLER 6401 [facility] [address] Assigned Surgical Provider 10/09/22 [place] [address] [place] [address] Assigned Musculoskeletal Provider 10/09/22 Alfonso Renteria MD [address] [facility] 200 [place], [place] [phone] Assigned Neuroscience Provider 04/02/23 Radha Lomeli APRN CYBER INCIDENT HANDLER [address] [facility] [address] [place] [address] Assigned Heart and Vascular Provider 05/28/23 Jelena David OD [address] [facility] [address] [place] [phone] Ophthalmology 06/15/23 Pao Joseph, RN Personal Advocate & Liaison (PAL) Nurse 08/01/23 Esha Grimm, PA-C [address] [place] [phone] Assigned PCP 07/16/23 documented as of this encounter
--- OUTSIDE RECORDS SUMMARY | 2023-10-15 21:51 | XMS_ITS | Encounter Summary ---
Author Name Unknown Organization [facility] Address [address] [place] [address] Care Team Providers Care Fire Sprinkler Service Technician Name Role Phone ThangKendrickDiana T [facility] Unavailable Rain Galaviz-C Unavailable Tavia Wyatt MD Unavailable Unavailable Erica Farrell APRN MARRIAGE PERFORMER Unavailable Rich Barrett MD Unavailable Neil Kent MD Unavailable Diana Desir [facility] Unavailable [phone] Livan Sharif MD Unavailable Catherine Cm MD Unavailable + Valery Veronica PA-C Unavailable [phone] Brea Quinn DERRICKMAN HELPER MARRIAGE PERFORMER Unavailable Brea Quinn DERRICKMAN HELPER MARRIAGE PERFORMER Unavailable Jose Francisco Johnson MD Unavailable Alfonso Renteria MD Unavailable + [phone] Esha Grimm PA-C Primary Care Provider [phone] Radha Lomeli DERRICKMAN HELPER MARRIAGE PERFORMER Unavailable Jelena David OD Unavailable Pao Joseph RN Unavailable Unavailable Esha Grimm PA-C Unavailable [phone] Valery Veronica PA-C Unavailable [phone] Rey Tay MD Unavailable ZepedaRocky Unavailable Philip Dumont MD Unavailable [phone] Reason for Visit * Reason Onset Date Comments Call Back 08/01/2023 Encounter Details Date Type Department Care Team (Late st Contact Info) Description 08/01/2023 Telephone [facility] [address] [place] [address] Esha Grimm PA-C [id number] [place] [phone] Call Back Social History Tobacco Use Types Packs/Day Years [...] often do you attend chur ch or buddhism services? 1 to 4 times per year [...] Answer Date Recorded PHQ-2 Score 0 06/20/2023 [facility] - Occupational Stress Questionnaire Answer [...] exercise at this level? 30 min 03/10/2023 [place] Depression Scale Answer Date Recorded [place] Depression Score 5 01/14/2021 Last EPDS Self [...] Telephone Encounter - Esha Grimm PA-C - 08/02/2023 7:49 AM CST See telephone encounter. Seen by [facility] who reviewed imaging and note fracture. Custom wrap made for the patient. Esha Grimm PA-C on 08/02/2023 at 7:49 AM TABLE OPERATOR * Telephone Encounter - Debbie Shahid - 08/01/2023 11:14 AM CST Patient Returning Call Reason for call: Pt needs to discuss xrays for possible R broken hand and fingers. Different results shared by different provider. Pt currently at Orthopedics for splint. Information relayed to patient: Care team will cb in 24 hrs. Patient has additional questions: No What are your questions/concerns: pt confused - 2 different providers read xrays and one said hand is broken, the other said hand is not broken. Pt needs clarification. Could we send this information to you in [facility] or would you prefer to receive a phone call?: No preference Okay to leave a detailed message?: Yes at Home number on file [phone] (home) TABLE OPERATOR documented in this encounter Plan of Treatment Upcoming Encounters Date Type Department Care Team (Late st Contact Info) Description 10/25/2023 11:30 AM CDT Virtual Visit [facility] G[facility]ology [facility] [place] 9[address] [facility] 4th [place] [phone] Nelly Mes[address], RD [address]09 [place] [address] 11/03/2023 8:00 AM CDT Office Visit [facility] [address] [place] [phone] Valery Veronica PA-C [address] [place] [address] 11/29/2023 8:00 AM CDT Office Visit [facility] [address] [place] [address] Ehsa Grimm PA-C [address] [place] [address] 01/02/2024 8:00 AM CDT Office Visit [facility] [address] [place] [phone] Lauren Claudio PA-C [address] [place], [place] [phone] Kelli Perez MD [address] [facility] 106 [place], [place] [phone] documented as of this encounter Visit Diagnoses Not on filedocumented in this encounter Additional Health Concerns Assessment Noted Time PHQ-9 Depression Total Score: 4 06/20/20 23 8:40 AM ROLL TABLE OPERATOR documented as of this encounter Care Teams Fire Sprinkler Service Technician Relationship Specialty Start Date End Date Esha Grimm PA-C [id number] [place] [phone] PCP - General Family Medicine 05/04/23 Diana Desir, [facility] [address] [place] [address] Pharmacist Pharmacist 04/17/21 Rain Galaviz PA-C [address] [place] [address] [address] [place] [address] Physician Operator Vacuum Dermatology 04/28/21 Tavia Wyatt MD [address] [place] [address] [place] [address] Dermatology 07/14/21 Erica Farrell APRN MARRIAGE PERFORMER [address] [place] [address] Nurse Practitioner Cardiovascular Disease 09/09/21 Rich Barrett MD [address] 7465[address] Physician Ophthalmology 01/21/22 Neil Kent MD 500 [place], [place] 0[address] Dermatology 02/24/22 Diana Desir, [facility] [address] [place] [address] Assigned MTM Pharmacist 04/07/22 Livan Sharif MD [address] [place] [address] Cardiovascular Disease 05/14/22 IsCatherine hobbs MD 6[address] [facility] [address] [place] [address] Cardiovascular Disease 07/21/22 Valery Veronica PA-C 909 [place], [place] 07[address] Physician Operator Vacuum Dermatology 07/21/22 Brea Quinn APRN MARRIAGE PERFORMER 500 [place], [place] 0[address] Nurse Practitioner Dermatology 09/21/22 Brea Quinn APRN MARRIAGE PERFORMER 6401 [place], [place] 533102 Assigned Surgical Provider 10/09/22 [place] [address] [place] [address] Assigned Musculoskeletal Provider 10/09/22 Alfonso Renteria MD 5775 [facility] 200 [place], [place] [address]896 Assigned Neuroscience Provider 04/02/23 Radha Lomeli APRN MARRIAGE PERFORMER 6405 [facility] [address] [place] [address] Assigned Heart and Vascular Provider 05/28/23 Jelena David OD [address] [facility] [place] [address] Ophthalmology 06/15/23 Pao Joseph, VJ Personal Advocate & Liaison (PAL) Nurse 08/01/23 Esha Grimm PA-C [address] [place] [address] Assigned PCP 07/16/23 Valery Veronica PA-C 9 [place], [place] 524725 Physician Operator Vacuum Dermatology 09/19/23 Rey Tay MD [address] [place] [address] 838825 Gastroenterology 09/20/23 Rocky Zepeda DO [address] [place] [address] 920115 Physician Gastroenterology 09/20/23 Philip Dumont MD [address] [place] [address] 404055 Physician Ophthalmology 09/22/23 documented as of this encounter
--- OUTSIDE RECORDS SUMMARY | 2023-10-15 21:51 | XMS_ITS | Encounter Summary ---
Author Name Unknown Organization [facility] Address [address] [place] [address] Care Team Providers Care Client Representative Name Role Phone ThangKendrickDiana T [facility] Unavailable Rain Galaviz-C Unavailable Tavia Wyatt MD Unavailable Unavailable Erica Farrell APRN OIL SCOUT Unavailable Rich Barrett MD Unavailable Neil Kent MD Unavailable Diana Desir [facility] Unavailable [phone] Livan Sharif MD Unavailable Catherine Cm MD Unavailable + Valery Veronica PA-C Unavailable [phone] Brea Quinn BRYOLOGIST OIL SCOUT Unavailable Brea Quinn BRYOLOGIST OIL SCOUT Unavailable Jose Francisco Johnson MD Unavailable Alfonso Renteria MD Unavailable + [phone] Esha Grimm PA-C Primary Care Provider [phone] Radha Lomeli BRYOLOGIST OIL SCOUT Unavailable [phone] Jelena David OD Unavailable [phone] Pao Joseph RN Unavailable Unavailable Esha Grimm PA-C Unavailable [phone] Reason for Visit * Reason Onset Date Comments LAB REQUEST 08/10/2023 Encounter Details Date Type Department Care Team (Late st Contact Info) Description 08/10/2023 Telephone [facility] [address] [place] [address] Esha Grimm PA-C [address] [place] [address] LAB REQUEST Social History Tobacco Use Types Packs/Day Years [...] often do you attend chur ch or religion services? 1 to 4 times per year [...] Answer Date Recorded PHQ-2 Score 0 06/20/2023 [facility] [place] of Occupat ional Health - Occupational Stress [...] exercise at this level? 30 min 03/10/2023 [place] Depression Scale Answer Date Recorded [place] Depression Score 5 01/14/2021 Last EPDS Self [...] encounter Miscellaneous Notes * Telephone Encounter - Asiya Reddy RN - 08/10/2023 10:[address] COUNSELLOR Patient calling regarding ongoing symptoms of dizziness she has been having. States she noticed especially after she eats something with a lot of sugar in it she gets jittery and does not feel right.States she talked to her Tool And Production Planner about it ant that provider told her that is not normal and she should have some fasting labs done. Patient wanting lab orders. Did advise she had normal glucose test 06/28/23. Advised she send E-Visit. Patient agrees with plan. Asiya Reddy RN LY COURT COUNSELLOR documented in this encounter Plan of Treatment Upcoming Encounters Date Type Department Care Team (Late st Contact Info) Description 10/25/2023 11:30 AM CDT Virtual Visit [facility] [address] [phone] Nelly Mesa, [address] [place] [address] 11/03/2023 8:00 AM CDT Office Visit [address] [phone] Valery Veronica PA-C [address] [place] [address] 11/29/2023 8:00 AM CDT Office Visit [address] [phone] Esha Grimm PA-C [address] [place] [address] 01/02/2024 8:00 AM CDT Office Visit [facility] [address] [place] [phone] Lauren Claudio PA-C [address] [place], [place] [phone] Kelli Perez MD [address] [facility] 106 [place], [place] [phone] documented as of this encounter Visit Diagnoses Not on filedocumented in this encounter Additional Health Concerns Assessment Noted Time PHQ-9 Depression Total Score: 4 06/20/20 8:[address] COUNSELLOR documented as of this encounter Care Teams Client Representative Relationship Specialty Start Date End Date Esha Grimm PA-C [address] [place] [phone] PCP - General Family Medicine 05/04/23 Diana Desir, [facility] [address] [place] [address] Pharmacist Pharmacist 04/17/21 Rain Galaviz PA-C [address] [place] [address] [address] [place] [address] Physician Hat Finisher Dermatology 04/28/21 Tavia Wyatt MD [address] [place] [address] [address] [place] [address] Dermatology 07/14/21 Erica Farrell APRN OIL SCOUT 6405 [facility] [address] [place], [place] 68[address] Nurse Practitioner Cardiovascular Disease 09/09/21 Rich Barrett MD 516 [facility] 9A [place], [place] [address] Physician Ophthalmology 01/21/22 Neil Kent MD 500 [place], [place] 6[address] Dermatology 02/24/22 Diana Desir, [facility] 3033 [place], [place] [address]306 Assigned [facility] Pharmacist 04/07/22 Livan Sharif MD [address], [facility]00 [place] [address] Cardiovascular Disease 05/14/22 Catherine Cm MD 6[address] [facility] [address] 6627[address] Cardiovascular Disease 07/21/22 Valery Veronica, PA-C [address] [place] [address] 946025 Physician Hat Finisher Dermatology 07/21/22 Brea Quinn APRN OIL SCOUT 500 [place], [place] 6058[address] Nurse Practitioner Dermatology 09/21/22 Brea Quinn APRN OIL SCOUT [address] [facility] [place] 296[address] Assigned Surgical Provider 10/09/22 [place] [address] [place] [address] Assigned Musculoskeletal Provider 10/09/22 Alfonso Renteria MD 5775 [facility] 200 [place] [address] Assigned Neuroscience Provider 04/02/23 Radha Lomeli APRN OIL SCOUT [address] [place] [address] Assigned Heart and Vascular Provider 05/28/23 Jelena David OD [address] [facility] [address] Ophthalmology 06/15/23 Pao Joseph, RN Personal Advocate & Liaison (PAL) Nurse 08/01/23 Esha Grimm, PA-C [address] [place] [phone] Assigned PCP 07/16/23 documented as of this encounter
--- OUTSIDE RECORDS SUMMARY | 2023-10-15 21:51 | XMS_ITS | Encounter Summary ---
Author Name Unknown Organization [facility] Address [address] [place] [address] Care Team Providers Care Pathology Lab Technician Name Role Phone ThangKendrickDiana T [facility] Unavailable Rain Galaviz-C Unavailable Tavia Wyatt MD Unavailable Unavailable Erica Farrell APRN PORTUGUESE TUTOR Unavailable Rihc Barrett MD Unavailable Neil Kent MD Unavailable Diana Desir [facility] Unavailable [phone] Livan Sharif MD Unavailable Catherine Cm MD Unavailable + Valery Veronica PA-C Unavailable [phone] Brea Quinn BARREL BUILDER PORTUGUESE TUTOR Unavailable Brea Quinn BARREL BUILDER PORTUGUESE TUTOR Unavailable [phone] Jose Francisco Johnson MD Unavailable Alfonso Renteria MD Unavailable + [phone] Esha Grimm PA-C Primary Care Provider [phone] Radha Lomeli BARREL BUILDER PORTUGUESE TUTOR Unavailable FrankieJelena OD Unavailable Pao Joseph RN Unavailable Unavailable Esha GrimmC Unavailable [phone] Reason for Visit * Reason Comments Medication Therapy Management Encounter Details Date Type Department Care Team (Late st Contact Info) Description 08/24/2023 4:00 PM MANAGER LINE Virtual Visit [address] [address] Diana Desir, [facility] [address] [place], [place] [address] Anxiety (Primary Dx); Moderate major depression (H) [...] often do you attend chur ch or sikh services? 1 to 4 times per year [...] PHQ-2 Score 0 06/20/2023 [facility] of Occupat ional [facility] - Occupational Stress Questionnaire Answer [...] exercise at this level? 30 min 03/10/2023 [place] Depression Scale Answer Date Recorded [place] Depression Score 5 01/14/2021 Last EPDS Self [...] as of this encounter Progress Notes * Diana Desir, [facility] - 08/24/2023 4:00 PM CST Medication Therapy Management (MTM) Encounter ASSESSMENT: Medication Adherence/Access: No issues identified Anxiety/Depression: Will change paroxetine to venlafaxine as previously discussed at last visit. PLAN: Decrease paroxetine to 10 mg daily (quarter tablet) and start venlafaxine 37.5 mg daily. Stop taking the paroxetine 10 mg daily after 7 days if no withdrawal symptoms. Follow-up: Return in about 1 month (around 09/22/2023) for Medication Therapy Management Pharmacist. SUBJECTIVE/OBJECTIVE: Kim Johnson is a 23 year old female called for a follow-up visit from 07/27. Reason for visit: anxiety follow-up. Tobacco: She reports that she quit smoking about 3 years ago. Her smoking use included other and cigarettes. She smoked an average of 1 pack per day. She has been exposed to tobacco smoke. She has never used smokeless tobacco. Alcohol: not currently using Medication Adherence/Access: no issues reported Anxiety/Depression: paroxetine 20 mg daily AM (decreased dose but hasn't started venlafaxine yet or decreased further, forgot) Lorazepam 0.5 mg as needed (needing about once weekly normally but needing more lately d/t stress last month but none past couple weeks) Wonders if hormones are off b/c having more acne or if medication related. Back to school so more stress, all over the place. Anxiety and depression are not worsened compared to last month despite decreasing paroxetine dose. Following therapist regularly. Past med trial: Buspirone (made her feel very weird, suicidal thoughts she thinks) Sertraline (obessive about certain things and ineffective after being on for so long on 200 mg/day) 05/02/2023 9:30 AM 05/16/2023 9:28 AM 06/20/2023 8:40 AM PHQ PHQ-9 Total Score 5 6 4 Q9: Thoughts of better off /self-harm past 2 weeks Not at all Not at all Not at all 08/27/2022 9:25 AM 03/10/2023 6:50 AM 06/20/2023 8:40 AM KALYN-7 SCORE Total Score 4 (minimal anxiety) 3 (minimal anxiety) 4 (minimal anxiety) Total Score 4 3 4 Today's Vitals: none I spent 8 minutes with this patient today. All changes were made via collaborative practice agreement with Esha Grimm PA-C. A copy of the visit note was provided to the patient's provider(s). A summary of these recommendations was sent via Stack Exchange. Diana Desir, PharmD, [facility] Medication Therapy Management Provider, [facility] [phone] Telemedicine Visit Details Type of service: Telephone visit Start Time: 4:20 PM End Time: 4:28 PM Medication Therapy Recommendations No medication therapy recommendations to display GER LINE documented in this encounter Plan of Treatment Upcoming Encounters Date Type Department Care Team (Late st Contact Info) Description 10/25/2023 11:30 AM CDT Virtual Visit [facility] [address] [phone] [address], [address] [place] [address] 11/03/2023 8:00 AM CDT Office Visit [address] [phone] Valery Veronica PA-C [address] [place] [address] 11/29/2023 8:00 AM CDT Office Visit [address] [address] Esha Grimm PA-C [address] [place] [phone] 01/02/2024 8:00 AM CDT Office Visit [facility] [address] [place] [phone] Lauren Claudio PA-C [address] [place], [place] [phone] Kelli Perez MD [address] [place], [place] [phone] documented as of this encounter Visit Diagnoses Diagnosis Anxiety- Primary Anxiety state, unspecified Moderate major depression (H) Major depressive disorder, single episode, moderate documented in this encounter Additional Health Concerns Assessment Noted Time PHQ-9 Depression Total Score: 4 06/20/20 23 8:40 AM MANAGER LINE documented as of this encounter Care Teams Pathology Lab Technician Relationship Specialty Start Date End Date Esha Grimm PA-C [address] [place] [address] PCP - General Family Medicine 05/04/23 Diana Desir, [facility] [address] [place] [address] Pharmacist Pharmacist 04/17/21 Rain Galaviz PA-C [address] [place] [address] [address] [place] [address] Physician Signals Collection Technician Dermatology 04/28/21 Tavia Wyatt MD [address] [place] [address] [address] [place] [address] Dermatology 07/14/21 Erica Farrell APRN PORTUGUESE TUTOR [address] [place] [address] Nurse Practitioner Cardiovascular Disease 09/09/21 Rich Barrett MD 516 [facility] 9A [place] [address] Physician Ophthalmology 01/21/22 Neil Kent MD 500 [place], [place] 427875 MD Dermatology 02/24/22 Diana Desir, [facility] [address] [place], [place] 352196 Assigned [facility] Pharmacist 04/07/22 Livan Sharif MD [address] [place], [place] [address] Cardiovascular Disease 05/14/22 Catherine Cm MD [address] [place], [place] [address] Cardiovascular Disease 07/21/22 Valery Veronica, PA-C 909 [place], [place] 730885 Physician Signals Collection Technician Dermatology 07/21/22 Brea Quinn APRN PORTUGUESE TUTOR 500 [place], [place] 408535 Nurse Practitioner Dermatology 09/21/22 Brea Quinn APRN PORTUGUESE TUTOR 6401 [facility] [place] [address] Assigned Surgical Provider 10/09/22 [place] [address] [place] [address] [place] [address] Assigned Musculoskeletal Provider 10/09/22 Alfonso Renteria MD [address] [facility] 200 [place], [place] 722746 Assigned Neuroscience Provider 04/02/23 Radha Lomeli APRN PORTUGUESE TUTOR 6405 [facility] [address] [place] [address] Assigned Heart and Vascular Provider 05/28/23 Jelena David OD [address] [place] [address] Ophthalmology 06/15/23 Pao Joseph, VJ Personal Advocate & Liaison (PAL) Nurse 08/01/23 Esha Grimm, PA-C [address] [place] [address] Assigned PCP 07/16/23 documented as of this encounter
--- OUTSIDE RECORDS SUMMARY | 2023-10-15 21:51 | XMS_ITS | Encounter Summary ---
Author Name Unknown Organization [place] Address [address] [place] [address] Care Team Providers Care Senior Contracts Administrator Name Role Phone ThangKendrickDiana T [facility] Unavailable Rain Galaviz-C Unavailable Tavia Wyatt MD Unavailable Unavailable Erica Farrell APRN DIAGNOSTICS SALES DEVELOPER Unavailable Rich Barrett MD Unavailable Neil Kent MD Unavailable Diana Desir [facility] Unavailable [phone] Livan Sharif MD Unavailable Catherine Cm MD Unavailable + Valery Veronica PA-C Unavailable [phone] Brea Quinn FIRST BEATER DIAGNOSTICS SALES DEVELOPER Unavailable Brea Quinn FIRST BEATER DIAGNOSTICS SALES DEVELOPER Unavailable [phone] Jose Francisco Johnson MD Unavailable Alfonso Renteria MD Unavailable + [phone] Esha Grimm PA-C Primary Care Provider [phone] Radha Lomeli FIRST BEATER DIAGNOSTICS SALES DEVELOPER Unavailable FrankieJelena OD Unavailable [phone] Pao Joseph RN Unavailable Unavailable Esha Grimm PA-C Unavailable [phone] Encounter Details Date Type Department Care Team (Latest Contact Info) Description 08/01/2023 Travel Social History Tobacco Use Types Packs/Day [...] 03/10/2023 How often do you attend [facility] or religion services? 1 to 4 times per year 03/10/2023 Do you belong to any clubs o r organizations such as jehovah's witness groups, unions, fraternal or athletic [...] Answer Date Recorded PHQ-2 Score 0 06/20/2023 [facility] [place] of Occupat ional Health - Occupational Stress [...] exercise at this level? 30 min 03/10/2023 [place] Depression Scale Answer Date Recorded [place] Depression Score 5 01/14/2021 Last EPDS Self [...] Description 10/25/2023 11:30 AM CDT Virtual Visit [facility] [address] 4th [place] [phone] [address], [address] [place] [address] 11/03/2023 8:00 AM CDT Office Visit [address] [phone] Valery Veronica PA-C [address] [place] [address] 11/29/2023 8:00 AM CDT Office Visit [facility] [address] [place] [address] Esha Grimm PA-C [address] [place] [address] 01/02/2024 8:00 AM CDT Office Visit [facility] [address] [place] [phone] Lauren Claudio PA-C [address] [place] [address] Kelli Perez MD [address] [facility] 106 [place], [place] 2[address] documented as of this encounter Visit Diagnoses Not on filedocumented in this encounter Additional Health Concerns Assessment Noted Time PHQ-9 Depression Total Score: 4 06/20/ 23 8:40 AM CAPITAL CAMPAIGN FUNDRAISER documented as of this encounter Care Teams Senior Contracts Administrator Relationship Specialty Start Date End Date Esha Grimm PA-C [id number] [place] [phone] PCP - General Family Medicine 05/04/23 Diana Desir, [facility] [address] [place] [address] Pharmacist Pharmacist 04/17/21 Rain Galaviz PA-C [address] [place] [address] [address] [place] [address] Physician Burrer Hand Dermatology 04/28/21 Tavia Wyatt MD [address] [place] [address] DR [facility] [address] Dermatology 07/14/21 Erica Farrell APRN DIAGNOSTICS SALES DEVELOPER [address] [place] [address] Nurse Practitioner Cardiovascular Disease 09/09/21 Rich Barrett MD [address] [place] [address]15[address] Physician Ophthalmology 01/21/22 Neil Kent MD [address] [place] [address] 233975 Dermatology 02/24/22 Diana Desir, [facility] [address] [place] [address] Assigned MTM Pharmacist 04/07/22 Livan Sharif MD [address] [place] [address] Cardiovascular Disease 05/14/22 Catherine Cm MD [address] [facility] [address] [place] [address] Cardiovascular Disease 07/21/22 Valery Veronica, [place] 909 [place], [place] 9[address] Physician Burrer Hand Dermatology 07/21/22 Brea Quinn APRN DIAGNOSTICS SALES DEVELOPER 500 [place], [place] 697[address] Nurse Practitioner Dermatology 09/21/22 Brea Quinn APRN DIAGNOSTICS SALES DEVELOPER 6401 [facility] [place] 570242 Assigned Surgical Provider 10/09/22 [place] [address] [place] [address] Assigned Musculoskeletal Provider 10/09/22 Alfonso Renteria MD 5775 [facility] 200 [place], [place] [address]326 Assigned Neuroscience Provider 04/02/23 Radha Lomeli APRN DIAGNOSTICS SALES DEVELOPER 6405 [facility] [address] [place] [address] Assigned Heart and Vascular Provider 05/28/23 Jelena David OD [address] [facility] [place] [address] Ophthalmology 06/15/23 Pao Joseph, RN Personal Advocate & Liaison (PAL) Nurse 08/01/23 Esha Grimm PA-C [address] [place] [address] Assigned PCP 07/16/23 documented as of this encounter
--- OUTSIDE RECORDS SUMMARY | 2023-10-15 21:51 | XMS_ITS | Encounter Summary ---
Author Name Unknown Organization [facility] Address [address] [place] [address] Care Team Providers Care Agile Project Manager Name Role Phone ThangKendrickDiana T [facility] Unavailable Rain Galaviz-C Unavailable Tavia Wyatt MD Unavailable Unavailable Erica Farrell APRN SALES SPECIALIST Unavailable Rich Barrett MD Unavailable Neil Kent MD Unavailable Diana Desir [facility] Unavailable [phone] Livan Sharif MD Unavailable Catherine Cm MD Unavailable + Valery Veronica PA-C Unavailable [phone] Brea Quinn TUBE MOUNTER SALES SPECIALIST Unavailable [phone] Bera Quinn TUBE MOUNTER SALES SPECIALIST Unavailable Jose Francisco Johnson MD Unavailable Alfonso Renteria MD Unavailable + [phone] Esha Grimm PA-C Primary Care Provider [phone] Radha Lomeli TUBE MOUNTER SALES SPECIALIST Unavailable Jelena David OD Unavailable Pao Joseph RN Unavailable Unavailable Esha Grimm PA-C Unavailable [phone] Encounter Details Date Type Department Care Team (Late st Contact Info) Description 08/01/2023 MyC Medical Advice [facility] [address] [place] [address] Esha Grimm PA-C [address] [place] [address] Social History Tobacco Use Types Packs/Day [...] How often do you attend chur or yarsani services? 1 to 4 times per year 03/10/2023 Do you belong to any clubs o r organizations such as islam groups, unions, fraternal or athletic groups, [...] Answer Date Recorded PHQ-2 Score 0 06/20/2023 [facility] [place] of Occupat ional Health - Occupational Stress [...] exercise at this level? 30 min 03/10/2023 [place] Depression Scale Answer Date Recorded [place] Depression Score 5 01/14/2021 Last EPDS Self [...] Telephone Encounter - Pao Joseph RN - 08/01/2023 1:25 PM CST Esha Grimm PA-C- See pt's Mobilisafe message. Routed to PCP Pao Marcos RN PAL (Patient Advocate Liaison) [facility] GER SALES TRAINING documented in this encounter Plan of Treatment Upcoming Encounters Date Type Department Care Team (Late st Contact Info) Description 10/25/2023 11:30 AM CDT Virtual Visit [facility] [address] [place] [phone] Nelly Mesa, RD [address] [place] [address] 11/03/2023 8:00 AM CDT Office Visit [address] [phone] Valery Veronica PA-C [address] [place] [address] 489725 11/29/2023 8:00 AM CDT Office Visit [facility] [address] [place] [address] Esha Grimm PA-C [address] [place] [address] 01/02/2024 8:00 AM CDT Office Visit [facility] [address] [place] [phone] Lauren Claudio PA-C [address] [place], [place] [phone] Kelli Perez MD [address] [place], [place] [address] documented as of this encounter Visit Diagnoses Not on filedocumented in this encounter Additional Health Concerns Assessment Noted Time PHQ-9 Depression Total Score: 4 06/20/20 23 8:40 AM MANAGER SALES TRAINING documented as of this encounter Care Teams Agile Project Manager Relationship Specialty Start Date End Date Esha Grimm PA-C [address] [place] [phone] PCP - General Family Medicine 05/04/23 [facility] 3033 [place], [place] 265996 Pharmacist Pharmacist 04/17/21 Rain Galaviz PA-C [address] [place] [address] [address] [place] [address] Physician Medical Billing Assistant Dermatology 04/28/21 Tavia Wyatt MD [address] [place] [address] [address] [place] [address] Dermatology 07/14/21 Erica Farrell APRN SALES SPECIALIST 6405 [facility] [address] [place] [address] Nurse Practitioner Cardiovascular Disease 09/09/21 Rich Barrett MD 516 [facility] 9A [place], [place] [address] Physician Ophthalmology 01/21/22 Neil Kent MD 500 [place], [place] [phone] Dermatology 02/24/22 Diana Desir, [facility] 3033 [place], [place] 063076 Assigned MTM Pharmacist 04/07/22 Livan Sharif MD [address] [facility] [place] [place] 3193[address] Cardiovascular Disease 05/14/22 Catherine Cm MD [address] [facility] [place] 340325 Cardiovascular Disease 07/21/22 Valery Veronica, PA-C 9 [place], [place] 179115 Physician Medical Billing Assistant Dermatology 07/21/22 Brea Quinn APRN SALES SPECIALIST 500 [place], [place] 081545 Nurse Practitioner Dermatology 09/21/22 Brea Quinn APRN SALES SPECIALIST [address] [place] 481622 Assigned Surgical Provider 10/09/22 [place] [address] [place], [place] 59[address]27 Assigned Musculoskeletal Provider 10/09/22 Alfonso Renteria MD [address] [place], [place] 948166 Assigned Neuroscience Provider 04/02/23 Radha Lomeli APRN SALES SPECIALIST 6405 [facility] [address] [place] [address] Assigned Heart and Vascular Provider 05/28/23 Jelena David OD [address] [facility] [place] [address] Ophthalmology 06/15/23 Pao Joseph, RN Personal Advocate & Liaison (PAL) Nurse 08/01/23 Esha Grimm, PA-C [address] [place] [address] Assigned PCP 07/16/23 documented as of this encounter
--- OUTSIDE RECORDS SUMMARY | 2023-10-15 21:51 | XMS_ITS | Encounter Summary ---
Author Name Unknown Organization [facility] Address [address] [place] [address] Care Team Providers Care Chain Sales Representative Name Role Phone ThangKendrickDiana T [facility] Unavailable Rain Galaviz-C Unavailable Tavia Wyatt MD Unavailable Unavailable Erica Farrell APRN PIE CRUST MIXER Unavailable Rich Barrett MD Unavailable Neil Kent MD Unavailable Diana Desir [facility] Unavailable [phone] Livan Sharif MD Unavailable Catherine Cm MD Unavailable + Valery Veronica PA-C Unavailable [phone] Brea Quinn INTRUSION ANALYST PIE CRUST MIXER Unavailable Brea Quinn INTRUSION ANALYST PIE CRUST MIXER Unavailable Jose Francisco Johnson MD Unavailable Alfonso Renteria MD Unavailable + [phone] Esha Grimm PA-C Primary Care Provider [phone] Radha Lomeli INTRUSION ANALYST PIE CRUST MIXER Unavailable Jelena David OD Unavailable Pao Joseph RN Unavailable Unavailable Esha Grimm PA-C Unavailable [phone] Reason for Visit * Reason Onset Date Comments Forms 08/04/2023 Encounter Details Date Type Department Care Team (Late st Contact Info) Description 08/04/2023 Telephone [facility] [address] [place] [address] Esha Grimm PA-C [address] [place] [address] Forms Social History Tobacco Use Types Packs/Day Years [...] often do you attend chur ch or druze services? 1 to 4 times per year [...] Answer Date Recorded PHQ-2 Score 0 06/20/2023 [facility] of Occupat ionny Health - Occupational Stress Questionnaire Answer Date [...] exercise at this level? 30 min 03/10/2023 [place] Depression Scale Answer Date Recorded [place] Depression Score 5 01/14/2021 Last EPDS Self [...] Telephone Encounter - Esha Grimm PA-C - 08/05/2023 9:07 AM CST Note sent through Orate. Esha Grimm PA-C on 08/05/2023 at 9:07 AM PHONE SERVICE REPRESENTATIVE * Telephone Encounter - Isabelle Coppola RN - 08/04/2023 11:38 AM TELEPHONE SERVICE REPRESENTATIVE Pt calling; states in last appointment a possible note was discussed for school Pended note Please review and upload to [employer] once signed. Isabelle Avendano RN on 08/04/2023 at 11:47 AM PHONE SERVICE REPRESENTATIVE documented in this encounter Plan of Treatment Upcoming Encounters Date Type Department Care Team (Late st Contact Info) Description 10/25/2023 11:30 AM CDT Virtual Visit [facility] [address]th [place] [phone] [address], RD [address] [place] [address] 11/03/2023 8:00 AM CDT Office Visit [address] [address] Valery Veronica PA-C [address] [place] [address] 11/29/2023 8:00 AM CDT Office Visit [address] [place] [phone] Esha Grimm PA-C [id number] [place] [phone] 01/02/2024 8:00 AM CDT Office Visit [facility] [address] [place] [phone] Lauren Claudio PA-C [address] [place], [place] [phone] Kelli Perez MD 606 [facility] 106 [place], [place] [address] documented as of this encounter Visit Diagnoses Not on filedocumented in this encounter Additional Health Concerns Assessment Noted Time PHQ-9 Depression Total Score: 4 06/20/20 23 8:40 AM TELEPHONE SERVICE REPRESENTATIVE documented as of this encounter Care Teams Chain Sales Representative Relationship Specialty Start Date End Date Esha Grimm PA-C [id number] [place] [address] PCP - General Family Medicine 05/04/23 Diana Desir, [facility] [address] [place] [address] Pharmacist Pharmacist 04/17/21 Rain Galaviz PA-C [address] [place] [address] [address] [place] [id number] Physician Import Clerk Dermatology 04/28/21 Tavia Wyatt MD [address] [place] [address] [address] [place] [address] Dermatology 07/14/21 Erica Farrell APRN PIE CRUST MIXER [address] [place] [address]235 Nurse Practitioner Cardiovascular Disease 09/09/21 Rich Barrett MD 516 [facility] 9A [place] [address] Physician Ophthalmology 01/21/22 Neil Kent MD 500 [place], [place] 329255 MD Dermatology 02/24/22 Diana Desir, [facility] 3033 [place], [place] [address] Assigned [place] Pharmacist 04/07/22 Livan Sharif MD [address] [place] [id number] Cardiovascular Disease 05/14/22 Catherine Cm MD [address] [place], [place] [address] Cardiovascular Disease 07/21/22 Valery Veronica, PA-C 909 [place], [place] 0[address]365 Physician Import Clerk Dermatology 07/21/22 Brea Quinn APRN PIE CRUST MIXER 500 [place], [place] 984695 Nurse Practitioner Dermatology 09/21/22 Brea Quinn APRN PIE CRUST MIXER 6401 [facility] [place] [address] Assigned Surgical Provider 10/09/22 [place] [address] [place] [address] [place] [address] Assigned Musculoskeletal Provider 10/09/22 Alfonso Renteria MD [address] [facility] 200 [place], [place] 550676 Assigned Neuroscience Provider 04/02/23 Radha Lomeli APRN PIE CRUST MIXER 6405 [facility] [address] [place] [address] Assigned Heart and Vascular Provider 05/28/23 Jelena David OD 3305 [facility] [place] [address] Ophthalmology 06/15/23 Pao Joseph, RN Personal Advocate & Liaison (PAL) Nurse 08/01/23 Esha Grimm, PA-C [address] [place] [address]83 Assigned PCP 07/16/23 documented as of this encounter
--- OUTSIDE RECORDS SUMMARY | 2023-10-15 21:51 | XMS_ITS | Encounter Summary ---
Author Name Unknown Organization [place] Address [address] [place] [address] Care Team Providers Care Professional Healthcare Representative Name Role Phone ThangKendrickDiana T [facility] Unavailable [phone] Rain Galaviz-C Unavailable Tavia Wyatt MD Unavailable Unavailable Erica Farrell APRN AUTOMATIC LATHE TENDER Unavailable Rich Barrett MD Unavailable Neil Kent MD Unavailable Diana Desir [facility] Unavailable [phone] Livan Sharif MD Unavailable Catherine Cm MD Unavailable + Valery Veronica PA-C Unavailable [phone] Brea Quinn METER TESTER AUTOMATIC LATHE TENDER Unavailable Brea Quinn METER TESTER AUTOMATIC LATHE TENDER Unavailable Jose Francisco Johnson MD Unavailable Alfonso Renteria MD Unavailable + [phone] Esha Grimm PA-C Primary Care Provider [phone] Radha Lomeli METER TESTER AUTOMATIC LATHE TENDER Unavailable [phone] Frankie Jelena Radha OD Unavailable Pao Joseph RN Unavailable Unavailable Esha Grimm PA-C Unavailable [phone] Valery Veronica PA-C Unavailable [phone] Rey Tay MD Unavailable Duane Rockyanne STEVENS Unavailable Philip Dumont MD Unavailable [phone] Encounter Details Date Type Department Care Team (Late st Contact Info) Description 08/04/2023 [facility] Medical Advice [address] [address] Diana Desir, [facility] [address] [place] [address] Social History Tobacco Use Types [...] How often do you attend chur or sikh services? 1 to 4 times [...] Answer Date Recorded PHQ-2 Score 0 06/20/2023 [facility] - Occupational [...] exercise at this level? 30 min 03/10/2023 [place] Depression Scale Answer Date Recorded [place] Depression Score 5 01/14/2021 Last EPDS Self [...] Description 10/25/2023 11:30 AM CDT Virtual Visit [facility] [address] 4th [place] [phone] [address], [address]09 [place] [address] 11/03/2023 8:00 AM CDT Office Visit [facility] [address] [place] [phone] Valery Veronica PA-C [address] [place] [address] 11/29/2023 8:00 AM CDT Office Visit [facility] [address] [place] [phone] Esha Grimm PA-C [address] [place] [address] 01/02/2024 8:00 AM CDT Office Visit [facility] [place] [address] [place] [phone] Lauren Claudio PA-C [address] [place], [place] [phone] Kelli Perez MD [address] [place], [place] 9[address]874 documented as of this encounter Visit Diagnoses Not on filedocumented in this encounter Additional Health Concerns Assessment Noted Time PHQ-9 Depression Total Score: 4 06/20/20 23 8:40 AM SET UP MECHANIC AUTOMATIC LINE documented as of this encounter Care Teams Professional Healthcare Representative Relationship Specialty Start Date End Date Esha Grimm PA-C [address] [place] [address]65[address]83 PCP - General Family Medicine 05/04/23 Diana Desir, [facility] [address] [place], [place] 357226 Pharmacist Pharmacist 04/17/21 Rain Galaviz PA-C [address] [place] [address] [address] [place] [address] Physician Computer Sciences Professor Dermatology 04/28/21 Tavia Wyatt MD [address] [place] [address] [address] [place] [address] Dermatology 07/14/21 Erica Farrell APRN AUTOMATIC LATHE TENDER 6405 [facility] [address] [place], [place] 678645 Nurse Practitioner Cardiovascular Disease 09/09/21 Rich Barrett MD 516 [facility] 9A [place], [place] 708535 Physician Ophthalmology 01/21/22 Neil Kent MD 500 [place] [address] Dermatology 02/24/22 [facility] 3033 [place] [address] Assigned [place] Pharmacist 04/07/22 Livan Sharif MD 6405 [facility] [place] [id number] [place] [address] Cardiovascular Disease 05/14/22 Catherine Cm MD [address] 251545 Cardiovascular Disease 07/21/22 Valery Veronica, PA-C 909 [place], [place] 178705 Physician Computer Sciences Professor Dermatology 07/21/22 Brea Quinn APRN AUTOMATIC LATHE TENDER 500 [place] [address] Nurse Practitioner Dermatology 09/21/22 Brea Quinn APRN AUTOMATIC LATHE TENDER [address] [place] [address] Assigned Surgical Provider 10/09/22 [place] [address] [address] Assigned Musculoskeletal Provider 10/09/22 Alfonso Renteria MD 5775 [facility] 200 [place] [address] Assigned Neuroscience Provider 04/02/23 Radha Lomeli APRN AUTOMATIC LATHE TENDER [address] [place] [address] Assigned Heart and Vascular Provider 05/28/23 Jelena David OD [address] [facility] [place] [place] [address] MD Ophthalmology 06/15/23 Pao Joseph, RN Personal Advocate & Liaison (PAL) Nurse 08/01/23 Esha Grimm PA-C [address] [place] [address]366[address] Assigned PCP 07/16/23 Valery Veronica PA-C 9 [place] [address] Physician Computer Sciences Professor Dermatology 09/19/23 Rey Tay MD [address] [place] [address] MD Gastroenterology 09/20/23 Rocky Zepeda DO [address] [place] [address] Physician Gastroenterology 09/20/23 Philip Dumont MD [address] [place] [address] 265085 Physician Ophthalmology 09/22/23 documented as of this encounter
--- OUTSIDE RECORDS SUMMARY | 2023-10-15 21:51 | XMS_ITS | Encounter Summary ---
Author Name Unknown Organization [place] Address [address] [place] [address] Care Team Providers Care Green Building Energy Engineer Name Role Phone ThangKendrickDiana T [facility] Unavailable Rain Galaviz-C Unavailable Tavia Wyatt MD Unavailable Unavailable Erica Farrell APRN SAMPLE CUTTER Unavailable Rich Barrett MD Unavailable Neil Kent MD Unavailable Diana Desir [facility] Unavailable [phone] Livan Sharif MD Unavailable Catherine Cm MD Unavailable + Valery Veronica PA-C Unavailable [phone] Brea Quinn PHYSICAL THERAPIST ASSISTANT SAMPLE CUTTER Unavailable Brea Quinn PHYSICAL THERAPIST ASSISTANT SAMPLE CUTTER Unavailable Jose Francisco Johnson MD Unavailable Alfonso Renteria MD Unavailable + [phone] Esha Grimm PA-C Primary Care Provider [phone] Radha Lomeli PHYSICAL THERAPIST ASSISTANT SAMPLE CUTTER Unavailable Jelena David OD Unavailable [phone] Pao Joseph RN Unavailable Unavailable Esha Grimm Adam [facility] Unavailable [phone] Valery Veronica PA-C Unavailable [phone] Rey Tay MD Unavailable ZepedaRocky Unavailable Philip Dumont MD Unavailable [phone] Encounter Details Date Type Department Care Team (Late st Contact Info) Description 08/11/2023 [facility] Medical Advice [address] [address] Pao Joseph, RN Social History Tobacco Use Types Packs/Day [...] often do you attend chur ch or baptist services? 1 to 4 times per year 03/10/2023 Do you belong to any clubs o r organizations such as episcopalian groups, unions, fraternal or athletic groups, [...] Answer Date Recorded PHQ-2 Score 0 06/20/2023 [facility] - Occupational Stress Questionnaire Answer Date [...] exercise at this level? 30 min 03/10/2023 [place] Depression Scale Answer Date Recorded [place] Depression Score 5 01/14/2021 Last EPDS Self [...] Description 10/25/2023 11:30 AM CDT Virtual Visit [facility] Gastroenterology Clinic [address] 4th [place] [phone] Nelly Mesa, RD [address] [place] [address] 11/03/2023 8:00 AM CDT Office Visit [facility] [address] [place] [phone] Valery Veronica PA-C [address] [place] [address] 11/29/2023 8:00 AM CDT Office Visit [facility] [address] [place] [phone] Esha Grimm PA-C [address] [place] [phone] 01/02/2024 8:00 AM CDT Office Visit [facility] Sleep Center [employer] [facility] [facility] [address] [place] [phone] Lauren Claudio PA-C [address] [place], [place] [phone] Kelli Perez MD [address] [place] [address] documented as of this encounter Visit Diagnoses Not on filedocumented in this encounter Additional Health Concerns Assessment Noted Time PHQ-9 Depression Total Score: 4 06/20/20 23 8:40 AM DISTRICT CUSTOMS DIRECTOR documented as of this encounter Care Teams Green Building Energy Engineer Relationship Specialty Start Date End Date Esha Grimm PA-C [address] [place] [phone] PCP - General Family Medicine 05/04/23 Diana Desir, [facility] [address] [place] [address] Pharmacist Pharmacist 04/17/21 Rain Galaviz PA-C [address] [place] [address] [address] [place] [address] Physician Supervisor Cutting Department Dermatology 04/28/21 Tavia Wyatt MD [address] [place] [address] [address] [facility] [place] [address] Dermatology 07/14/21 Erica Farrell APRN SAMPLE CUTTER 6405 [facility] [address] [place] [address] Nurse Practitioner Cardiovascular Disease 09/09/21 Rich Barrett MD 516 [facility] 9A [place], [place] 219125 Physician Ophthalmology 01/21/22 Neil Kent MD 500 [place], [place] 533375 Dermatology 02/24/22 [facility] 3033 [place] [address] Assigned MTM Pharmacist 04/07/22 Livan Sharif MD [address] [facility] [address] [place] [address] Cardiovascular Disease 05/14/22 Catherine Cm MD [address] [facility] [address] [place], [place] 492575 Cardiovascular Disease 07/21/22 Valery Veronica PAUcheC 909 [place], [place] 661375 Physician Supervisor Cutting Department Dermatology 07/21/22 Brea Quinn APRN SAMPLE CUTTER 500 [place], [place] 769655 Nurse Practitioner Dermatology 09/21/22 Brea Quinn APRN SAMPLE CUTTER 6401 [place], [place] 101762 Assigned Surgical Provider 10/09/22 [place] [address] [facility] 300 [place] [address] Assigned Musculoskeletal Provider 10/09/22 Alfonso Renteria MD 5775 [facility] 200 [place] [address] Assigned Neuroscience Provider 04/02/23 Radha Lomeli APRN SAMPLE CUTTER [address] [place] [id number] Assigned Heart and Vascular Provider 05/28/23 Jelena David OD [address] [facility] [place] [address] MD Ophthalmology 06/15/23 Pao Joseph, VJ Personal Advocate & Liaison (PAL) Nurse 08/01/23 Esha Grimm PA-C [address] [place] [phone] Assigned PCP 07/16/23 Valery Veronica PA-C [address] [place] [address] 909675 Physician Supervisor Cutting Department Dermatology 09/19/23 Rey Tay MD [address] [place] [address] 224455 Gastroenterology 09/20/23 Rocky Zepeda DO [address] [place] [address] 230845 Physician Gastroenterology 09/20/23 Philip Dumont MD [address] [place] [address] 982975 Physician Ophthalmology 09/22/23 documented as of this encounter
--- OUTSIDE RECORDS SUMMARY | 2023-10-15 21:51 | XMS_ITS | Encounter Summary ---
Author Name Unknown Organization [place] Address [address] [place] [address] Care Team Providers Care Shotgun Shell Assembly Machine Adjuster Name Role Phone ThangKendrickDiana T [facility] Unavailable Rain Galaviz-C Unavailable Tavia Wyatt MD Unavailable Unavailable Erica Farrell APRN STEAMFITTER APPRENTICE Unavailable Rich Barrett MD Unavailable Neil Kent MD Unavailable Diana Desir [facility] Unavailable [phone] Livan Sharif MD Unavailable Catherine Cm MD Unavailable + Valery Veronica PA-C Unavailable [phone] Brea Quinn CAN FILLER STEAMFITTER APPRENTICE Unavailable Brea Quinn CAN FILLER STEAMFITTER APPRENTICE Unavailable Jose Francisco Johnson MD Unavailable Alfonso Renteria MD Unavailable + [phone] Esha Grimm PA-C Primary Care Provider [phone] Radha Lomeli CAN FILLER STEAMFITTER APPRENTICE Unavailable Jelena David OD Unavailable Pao Joseph RN Unavailable Unavailable Esha Grimm PA-C Unavailable [phone] Reason for Visit * Diagnostic Imaging XR (Routine) - Pending Review Specialty Diagnoses / Procedures Referred By Contparviz t Referred To Contact Radiology. Diagnoses Finger pain, right Procedures XR Hand Right G/E 3 Views Esha Grimm PA-C [address] [place] [address] Referral ID Status Reason Start Date Expiration Date V isits Requested Visits Authorized [id number] Pending Review 08/01/2023 07/31/2024 1 1 Encounter Details Date Type Department Care Team (Latest Contact Info) Description 08/01/2023 9:00 AM ORDER MANAGEMENT SPECIALIST Ancillary Procedure [address] [address] Esha Grimm PA-C [address] [place] [address] Finger pain, right Social History Tobacco Use Types Packs/Day Years [...] often do you attend chur ch or denominational services? 1 to 4 times per year [...] Answer Date Recorded PHQ-2 Score 0 06/20/2023 [facility] - Occupational [...] exercise at this level? 30 min 03/10/2023 [place] Depression Scale Answer Date Recorded [place] Depression Score 5 01/14/2021 Last EPDS Self [...] CDT Virtual Visit [facility] [address] [phone] Nelly Mesa, RD [address] [place] [address] 11/03/2023 8:00 AM CDT Office Visit [address] [phone] Valery Veronica PA-C [address] [place] [address] 11/29/2023 8:00 AM CDT Office Visit [facility] [address] [place] [address] Esha Grimm PA-C [address] [place] [address] 01/02/2024 8:00 AM CDT Office Visit [facility] [address] [place] [phone] Lauren Claudio PA-C [address] [place], [place] [phone] Kelli Perez MD 606 [facility] 106 [place], [place] 465774 documented as of this encounter Procedures Procedure Name Priority Date/Time Associated Diagnosis Comments XR HAND RIGHT G/E 3 VIEWS Routine 08/01/2023 9:04 AM ORDER MANAGEMENT SPECIALIST Finger pain, right documented in this encounter Results * XR Hand Right G/E 3 Views (08/01/2023 9:04 AM ORDER MANAGEMENT SPECIALIST) Anatomical Region Laterality Modality Hand, Wrist Right Computed Radiogr aphy Impressions 08/01/2023 10:59 AM ORDER MANAGEMENT SPECIALIST IMPRESSION: The right hand is negative for fracture or dislocation. No erosive changes. JASON ALVARADO MD SYSTEM ID: ??[id number] Narrative 08/01/2023 10:59 AM ORDER MANAGEMENT SPECIALIST XR HAND RIGHT G/E 3 VIEWS 08/01/2023 9:04 AM HISTORY: Finger pain, right COMPARISON: None. Procedure Note Jason Alvarado MD - 08/01/2023 XR HAND RIGHT G/E 3 VIEWS 08/01/2023 9:04 AM HISTORY: Finger pain, right COMPARISON: None. IMPRESSION: The right hand is negative for fracture or dislocation. No erosive changes. JASON ALVARADO MD SYSTEM ID: [id number] Esha Grimm PA-C IMG DIAGNOSTIC IMAGI NG ORDERABLES documented in this encounter Visit Diagnoses Diagnosis Finger pain, right Pain in limb documented in this encounter Additional Health Concerns Assessment Noted Time PHQ-9 Depression Total Score: 4 06/20/20 23 8:40 AM ORDER MANAGEMENT SPECIALIST documented as of this encounter Care Teams Shotgun Shell Assembly Machine Adjuster Relationship Specialty Start Date End Date Esha Grimm PA-C [address] [place] [phone] PCP - General Family Medicine 05/04/23 Diana Desir, [facility] [address] [place] [address] Pharmacist Pharmacist 04/17/21 Rain Galaviz PA-C [address] [place] [address] [address] [place] [address] Physician Senior Clinical Sas Programmer Dermatology 04/28/21 Tavia Wyatt MD [address] [place] [address] DR [facility] [place] [address] Dermatology 07/14/21 Erica Farrell APRN STEAMFITTER APPRENTICE [address] [place] [address] Nurse Practitioner Cardiovascular Disease 09/09/21 Rich Barrett MD [address] [place] [address] 567375 Physician Ophthalmology 01/21/22 Neil Kent MD [address] [place] [address] 397375 Dermatology 02/24/22 Diana Desir, [facility] [address] [place] [address] Assigned MTM Pharmacist 04/07/22 Livan Sharif MD [address] [place] [address] Cardiovascular Disease 05/14/22 Catherine Cm MD 6405 [facility] [address] [place] 619775 Cardiovascular Disease 07/21/22 Valery Veronica PA-C 909 [place], [place] 413335 Physician Senior Clinical Sas Programmer Dermatology 07/21/22 Brea Quinn APRN STEAMFITTER APPRENTICE 500 [place], [place] [phone] Nurse Practitioner Dermatology 09/21/22 Brea Quinn APRN STEAMFITTER APPRENTICE 6401 [facility] [place] [address]052 Assigned Surgical Provider 10/09/22 [place] [address] [place] [address] 300 [place], [place] 799617 Assigned Musculoskeletal Provider 10/09/22 Alfonso Renteria MD 5775 [facility] 200 [place], [place] 473246 Assigned Neuroscience Provider 04/02/23 Radha Lomeli APRN STEAMFITTER APPRENTICE 6405 [place] 9381900 [place] 250925 Assigned Heart and Vascular Provider 05/28/23 Jelena David OD 3305 [facility] [place] [address] Ophthalmology 06/15/23 Pao Joseph, RN Personal Advocate & Liaison (PAL) Nurse 08/01/23 Esha Grimm, PAUcheC [address] [place] [address] Assigned PCP 07/16/23 documented as of this encounter
--- OUTSIDE RECORDS SUMMARY | 2023-10-15 21:51 | XMS_ITS | Encounter Summary ---
Author Name Unknown Organization [place] Address [address] [place] [address] Care Team Providers Care Delivery Mgr Name Role Phone DesirKendrickDiana T [facility] Unavailable Rain GalavizC Unavailable Tavia Wyatt MD Unavailable Unavailable Erica Farrell APRN MUSIC EDUCATION ADJUNCT PROFESSOR Unavailable Rich Barrett MD Unavailable Neil Kent MD Unavailable Diana Desir [facility] Unavailable Livan Sharif MD Unavailable Catherine Cm MD Unavailable + Valery Veronica-C Unavailable [phone] Brea Quinn BAND PRESSER MUSIC EDUCATION ADJUNCT PROFESSOR Unavailable [phone] Brea Quinn BAND PRESSER MUSIC EDUCATION ADJUNCT PROFESSOR Unavailable Jose Francisco Johnson MD Unavailable Sydnie Martinez RN Unavailable Unavailable Alfonso Renteria MD Unavailable + [phone] Esha Grimm PA-C Primary Care Provider Radha Lomeli BAND PRESSER MUSIC EDUCATION ADJUNCT PROFESSOR Unavailable [phone] Jelena David OD Unavailable Pao Joseph RN Unavailable Unavailable Wicho [place]ina PA-C Unavailable [phone] Valery Veronica PA-C Unavailable [phone] Rey Tay MD Unavailable Rocky Zepeda DO Unavailable Philip Dumont MD Unavailable [phone] Encounter Details Date Type Department Care Team (Late st Contact Info) Description 07/29/2023 [facility] Medical Advice [address] [address] Pao Joseph, RN Social History Tobacco Use Types Packs/Day Years Used Date Smoking Tobacco: Former Cigarettes 1 Q uit: 12/07/2019 Other Smokeless Tobacco: Never Alcohol Use [...] How often do you attend chur or temple services? 1 to 4 times per year 03/10/2023 Do you belong to any clubs o r organizations such as adventist groups, unions, fraternal or athletic groups, [...] Answer Date Recorded PHQ-2 Score 0 06/20/2023 [facility] [place] [facility]at [facility] - Occupational Stress Questionnaire Answer Date [...] exercise at this level? 30 min 03/10/2023 [place] Depression Scale Answer Date Recorded [place] Depression Score 5 01/14/2021 Last EPDS Self [...] 10/25/2023 11:30 AM CDT Virtual Visit [facility] Gastroenterology Clinic [address] 4th [place] [phone] Nelly Mesa, RD [address] [place] [address] 11/03/2023 8:00 AM CDT Office Visit [address] [phone] Valery Veronica PA-C [address] [place] [address] 11/29/2023 8:00 AM CDT Office Visit [facility] [address] [place] [phone] Esha Grimm PA-C [address] [place] [phone] 01/02/2024 8:00 AM CDT Office Visit [facility] [address] [place] [phone] Lauren Claudio PA-C [address] [place], [place] [phone] Kelli Perez MD [address] [place] [address] [place] 403214 documented as of this encounter Visit Diagnoses Not on filedocumented in this encounter Additional Health Concerns Assessment Noted Time PHQ-9 Depression Total Score: 4 06/20/20 23 8:40 AM FOUNDER AND CHIEF TECHNICAL OFFICER documented as of this encounter Care Teams Delivery Mgr Relationship Specialty Start Date End Date Esha Grimm PA-C [address] [place] [phone] PCP - General Family Medicine 05/04/23 Diana Desir, [facility] [address] [place] [address] Pharmacist Pharmacist 04/17/21 Rain Galaviz PA-C [address] [place] [address] [address] [place] [address] Physician Train Operator Dermatology 04/28/21 Tavia Wyatt MD [address] [place] [address] [address] [place] [address] Dermatology 07/14/21 Erica Farrell APRN MUSIC EDUCATION ADJUNCT PROFESSOR 6405 [facility] [address] [place], [place] 86[address] Nurse Practitioner Cardiovascular Disease 09/09/21 Rich Barrett MD 516 [facility], [facility] 9A [place], [place] 397475 Physician Ophthalmology 01/21/22 Neil Kent MD 500 [place], [place] 485315 Dermatology 02/24/22 Diana Desir, [facility] 3033 [place], [place] 675486 Assigned MTM Pharmacist 04/07/22 Livan Sharif MD [address], [facility] [address] [place], [place] 864075 Cardiovascular Disease 05/14/22 Catherine Cm MD [address] [facility] [address] [place], [place] 481825 Cardiovascular Disease 07/21/22 Valery Veronica, PA-C 909 [place], [place] 268205 Physician Train Operator Dermatology 07/21/22 Brea Quinn APRN MUSIC EDUCATION ADJUNCT PROFESSOR 500 [place], [place] 559205 Nurse Practitioner Dermatology 09/21/22 Brea Quinn APRN MUSIC EDUCATION ADJUNCT PROFESSOR [address] [place] [address] 533972 Assigned Surgical Provider 10/09/22 [place] [address] [facility] 300 [place], [place] 281257 Assigned Musculoskeletal Provider 10/09/22 Sydnie Martinez RN Personal Advocate & Liaison (PAL) Family Medicine 03/28/23 07/31/23 Alfonso Renteria MD 5775 [facility] 200 [place], [place] 065826 Assigned Neuroscience Provider 04/02/23 Radha Lomeli APRN MUSIC EDUCATION ADJUNCT PROFESSOR 6405 [facility] [address] [place] [address] Assigned Heart and Vascular Provider 05/28/23 Jelena David OD [address] [facility] [place] [address] Ophthalmology 06/15/23 Pao Joseph, VJ Personal Advocate & Liaison (PAL) Nurse 08/01/23 Esha Grimm PA-C [address] [place] [address]83 Assigned PCP 07/16/23 Valery Veronica PA-C [address] [place] [address] Physician Train Operator Dermatology 09/19/23 Rey Tay MD [address] [place] [address] Gastroenterology 09/20/23 Rocky Zepeda DO [address] [place] [address] Physician Gastroenterology 09/20/23 Philip Dumont MD [address] [place] [address] 260585 Physician Ophthalmology 09/22/23 documented as of this encounter
--- OUTSIDE RECORDS SUMMARY | 2023-10-15 21:51 | XMS_ITS | Encounter Summary ---
Author Name Unknown Organization [place] Address [address] [place] [address] Care Team Providers Care Engineering Mgr Name Role Phone ThangKendrickDiana T [facility] Unavailable Rain Galaviz-C Unavailable Tavia Wyatt MD Unavailable Unavailable Erica Farrell APRN SHOW DOG TRAINER Unavailable Rich Barrett MD Unavailable Neil Kent MD Unavailable Diana Desir [facility] Unavailable [phone] Livan Sharif MD Unavailable Catherine Cm MD Unavailable + Valery Veronica PA-C Unavailable [phone] Brea Quinn COMPUTER TECHNICIAN SHOW DOG TRAINER Unavailable Brea Quinn COMPUTER TECHNICIAN SHOW DOG TRAINER Unavailable Jose Francisco Johnson MD Unavailable Alfonso Renteria MD Unavailable + [phone] Esha Grimm PA-C Primary Care Provider [phone] Radha Lomeli COMPUTER TECHNICIAN SHOW DOG TRAINER Unavailable Jelena David OD Unavailable Pao Joseph RN Unavailable Unavailable Esha Grimm PA-C Unavailable [phone] Reason for Visit * Reason Comments Other Entered automaticall y based on patient selection in [employer] Encounter Details Date Type Department Care Team (Late st Contact Info) Description 08/10/2023 10:30 AM [place]. REVENUE OFFICER E-Visit [facility] [address] [place] [address] Esha Grimm PA-C [address] [place] [address] Other (Entered automatically based on shira... Social History Tobacco Use Types Packs/Day Years [...] often do you attend chur ch or catholic services? 1 to 4 times per year 03/10/2023 Do you belong to any clubs o r organizations such as cheondoism groups, unions, fraternal or athletic groups, [...] Answer Date Recorded PHQ-2 Score 0 06/20/2023 [facility] - Occupational Stress Questionnaire Answer [...] exercise at this level? 30 min 03/10/2023 [place] Depression Scale Answer Date Recorded [place] Depression Score 5 01/14/2021 Last EPDS Self [...] Telephone Encounter - Esha Grimm PA-C - 08/11/2023 9:20 AM CST Can we please call the patient to see if she received the Stamp.it message associated with her e-visit yesterday? I'm not sure what testing FITNESS DIRECTOR would be recommending-please see mychart note for recommendations. Thanks! Esha Grimm PA-C U.S. REVENUE OFFICER * Telephone Encounter - Esha Grimm PA-C - 08/10/2023 3:21 PM CST Provider E-Visit time total (minutes): 5 minutes U.S. REVENUE OFFICER documented in this encounter Plan of Treatment Upcoming Encounters Date Type Department Care Team (Late st Contact Info) Description 10/25/2023 11:30 AM CDT Virtual Visit [facility] [address] 4th [place] [phone] Nelly Mesa, RD [address] [place] [address] 11/03/2023 8:00 AM CDT Office Visit [address] [phone] Valery Veronica PA-C [address] [place] [address] 459015 11/29/2023 8:00 AM CDT Office Visit [facility] [address] [place] [phone] Esha Grimm PA-C [address] [place] [phone] 01/02/2024 8:00 AM CDT Office Visit [facility] [address] [place] [phone] Lauren Claudio PA-C [address] [place] [address] Kelli Perez MD [address] [facility] 106 [place], [place] [phone] documented as of this encounter Visit Diagnoses Diagnosis Shakiness- Primary Abnormal involuntary movements documented in this encounter Additional Health Concerns Assessment Noted Time PHQ-9 Depression Total Score: 4 06/20/20 23 8:40 AM U.S. REVENUE OFFICER documented as of this encounter Care Teams Engineering Mgr Relationship Specialty Start Date End Date Esha Grimm PA-C [id number] [place] [phone] PCP - General Family Medicine 05/04/23 Diana Desir, [facility]3 [place] [address] Pharmacist Pharmacist 04/17/21 Rain Galaviz PA-C [address] [place] [address] [address] [place] [address] Physician Global Director Air And Climate Change Dermatology 04/28/21 Tavia Wyatt MD [address] [place] [address] [address] [place] [address] Dermatology 07/14/21 Erica Farrell APRN SHOW DOG TRAINER [address] [place] [address] Nurse Practitioner Cardiovascular Disease 09/09/21 Rich Barrett MD 516 [facility] 9A [place], [place] 7[address] Physician Ophthalmology 01/21/22 Neil Kent MD 500 [place], [place] [phone] Dermatology 02/24/22 Diana Desir, [facility] 3033 [place], [place] 851926 Assigned MTM Pharmacist 04/07/22 Livan Sharif MD [address] [place] [address] Cardiovascular Disease 05/14/22 Catherine Cm MD [address] [facility]00 [place] [address] Cardiovascular Disease 07/21/22 Valery Veronica, PAUcheC [address] [place] [address] 092355 Physician Global Director Air And Climate Change Dermatology 07/21/22 Brea Quinn APRN SHOW DOG TRAINER 500 [place], [place] [phone] Nurse Practitioner Dermatology 09/21/22 Brea Quinn APRN SHOW DOG TRAINER 6401 [facility] [place] [address] Assigned Surgical Provider 10/09/22 [place] [address] [facility] 300 [place] [address] Assigned Musculoskeletal Provider 10/09/22 Alfonso Renteria MD [address] [facility] 200 [place], [place] 247296 Assigned Neuroscience Provider 04/02/23 Radha Lomeli APRN SHOW DOG TRAINER 6405 [facility] [address] [place] [address] Assigned Heart and Vascular Provider 05/28/23 Jelena David OD 3305 [facility] [place] [address] Ophthalmology 06/15/23 Pao Joseph, VJ Personal Advocate & Liaison (PAL) Nurse 08/01/23 Esha Grimm PAUcheC [address] [place] [phone] Assigned PCP 07/16/23 documented as of this encounter
--- OUTSIDE RECORDS SUMMARY | 2023-10-15 21:51 | XMS_ITS | Encounter Summary ---
Author Name Unknown Organization [place] Address [address] [place] [address] Care Team Providers Care Bar Gauger And Lubricator Tender Name Role Phone ThangKendrickDiana T [facility] Unavailable Rain Galaviz-C Unavailable Tavia Wyatt MD Unavailable Unavailable Erica Farrell APRN FIRST FRONT VENTILATOR Unavailable Rich Barrett MD Unavailable Neil Kent MD Unavailable Diana Desir [facility] Unavailable [phone] Livan Sharif MD Unavailable Catherine Cm MD Unavailable + Valery Veronica PA-C Unavailable [phone] Brea Quinn CIRCLE SAW OPERATOR FIRST FRONT VENTILATOR Unavailable Brea Quinn CIRCLE SAW OPERATOR FIRST FRONT VENTILATOR Unavailable Jose Francisco Johnson MD Unavailable Alfonso Renteria MD Unavailable + [phone] Esha Grimm PA-C Primary Care Provider [phone] Radha Lomeli CIRCLE SAW OPERATOR FIRST FRONT VENTILATOR Unavailable Jelena David OD Unavailable [phone] Pao Joseph RN Unavailable Unavailable Esha Grimm PA-C Unavailable [phone] Valery Veronica PA-C Unavailable [phone] Rey Tay MD Unavailable ZepedaRocky woodard Unavailable Philip Dumont MD Unavailable [phone] Reason for Visit * Reason Onset Date Comments Outreach 08/01/2023 Encounter Details Date Type Department Care Team (Late st Contact Info) Description 08/01/2023 [facility] Medical Advice [facility] [address] [place] [phone] Esha Grimm PA-C [id number] [place] [phone] Outreach Social History Tobacco Use Types [...] any clubs o r organizations such as lutheran groups, unions, fraternal or athletic groups, [...] Answer Date Recorded PHQ-2 Score 0 06/20/2023 [facility] - Occupational Stress Questionnaire Answer Date Recorded [...] exercise at this level? 30 min 03/10/2023 [place] Depression Scale Answer Date Recorded [place] Depression Score 5 01/14/2021 Last EPDS Self [...] Encounter - Pao Joseph RN - 08/01/2023 2:31 PM CST Esha Grimm PA-C- FYI. See pt's Dialogic messages. Routed to PCP Pao Marcos RN PAL (Patient Advocate Liaison) [facility] TESTER documented in this encounter Plan of Treatment Upcoming Encounters Date Type Department Care Team (Late st Contact Info) Description 10/25/2023 11:30 AM CDT Virtual Visit [facility] [address] [phone] Nelly Mesa, RD [address] [place] [address] 416775 11/03/2023 8:00 AM CDT Office Visit [address] [address] Valery Veronica PA-C [address] [place] [address] 789555 11/29/2023 8:00 AM CDT Office Visit [address] [phone] Esha Grimm PA-C [address] [place] [address] 01/02/2024 8:00 AM CDT Office Visit [facility] [address] [place] [phone] Lauren Claudio PA-C [address] [place], [place] [phone] Kelli Perez MD 606 [facility] 106 [place], [place] [phone] documented as of this encounter Visit Diagnoses Not on filedocumented in this encounter Additional Health Concerns Assessment Noted Time PHQ-9 Depression Total Score: 4 06/20/20 23 8:40 AM [facility] TESTER documented as of this encounter Care Teams Bar Gauger And Lubricator Tender Relationship Specialty Start Date End Date Esha Grimm PA-C [address] [place] [address] PCP - General Family Medicine 05/04/23 Diana Desir, [facility] [address] [place] [address] Pharmacist Pharmacist 04/17/21 Rain Galaviz PA-C [address] [place] [address] [address] [place] [address] Physician Orchestra Conductor Dermatology 04/28/21 Tavia Wyatt MD [address] [place] [address] [address] [place] [address] Dermatology 07/14/21 Erica Farrell, ARLENE FIRST FRONT VENTILATOR [address] [place], [place] 756955 Nurse Practitioner Cardiovascular Disease 09/09/21 Rich Barrett MD 516 [facility] 9A [place] [address] Physician Ophthalmology 01/21/22 Neil Kent MD 500 [place], [place] 563235 Dermatology 02/24/22 Diana Desir, [facility] 3033 [place], [place] 978426 Assigned [facility] Pharmacist 04/07/22 Livan Sharif MD [address] [place], [place] 926915 Cardiovascular Disease 05/14/22 Catherine Cm MD [address] [place] [address] Cardiovascular Disease 07/21/22 Valery Veronica, PA-C 909 [place], [place] 671785 Physician Orchestra Conductor Dermatology 07/21/22 Brea Quinn APRN FIRST FRONT VENTILATOR 500 [place], [place] 790715 Nurse Practitioner Dermatology 09/21/22 Brea Quinn APRN FIRST FRONT VENTILATOR 6401 [facility] [place] [address] Assigned Surgical Provider 10/09/22 [place] [address] [facility] 300 [place] [address] Assigned Musculoskeletal Provider 10/09/22 Alfonso Renteria MD [address] [facility] 200 [place], [place] 844666 Assigned Neuroscience Provider 04/02/23 Radha Lomeli APRN FIRST FRONT VENTILATOR 6405 [facility] [address] [place] [address] Assigned Heart and Vascular Provider 05/28/23 Jelena David OD 3305 [facility] [place] [address] Ophthalmology 06/15/23 Pao Joseph, VJ Personal Advocate & Liaison (PAL) Nurse 08/01/23 Esha Grimm PA-C [address] [place] [phone] Assigned PCP 07/16/23 Valery Veronica PA-C [address] [place] [address] 253285 Physician Orchestra Conductor Dermatology 09/19/23 Rey Tay MD 9 [place], [place] 605055 Gastroenterology 09/20/23 Rocky Zepeda DO [address] [place] [address] Physician Gastroenterology 09/20/23 Philip Dumont MD [address] [place] [address] Physician Ophthalmology 09/22/23 documented as of this encounter
--- OUTSIDE RECORDS SUMMARY | 2023-10-15 21:52 | XMS_ITS | Encounter Summary ---
Author Name Unknown Organization [facility] Address [address] [place] [address] Care Team Providers Care Metal Welder Name Role Phone DesirKendrickDiana T [facility] Unavailable [phone] Rain GalavizC Unavailable Tavia Wyatt MD Unavailable Unavailable Erica Farrell APRN CDL BULK DRIVER Unavailable Rich Barrett MD Unavailable Neil Kent MD Unavailable Diana Desir [facility] Unavailable Livan Sharif MD Unavailable Catherine Cm MD Unavailable + Valery Veronica-C Unavailable [phone] Brea Quinn ARBORIST CLIMBER CDL BULK DRIVER Unavailable Brea Quinn ARBORIST CLIMBER CDL BULK DRIVER Unavailable [phone] Jose Francisco Johnson MD Unavailable Sydnie Martinez RN Unavailable Unavailable Alfonso Renteria MD Unavailable + [phone] Esha Grimm PA-C Primary Care Provider Cheng Todd PA-C Unavailable [phone] Radha Lomeli APRN CDL BULK DRIVER Unavailable Jelena David OD Unavailable Encounter Details Date Type Department Care Team (Latest Contact Info) Description 07/14/2023 Travel Social History Tobacco Use Types Packs/Day [...] you attend [facility] or anglican services? 1 to 4 times per year [...] Answer Date Recorded PHQ-2 Score 0 06/20/2023 [facility] Occupat ional Health - Occupational Stress [...] at this level? 30 min 03/10/2023 [place] Depression Scale Answer Date Recorded [place] Depression Score 5 01/14/2021 Last EPDS Self [...] Description 10/25/2023 11:30 AM CDT Virtual Visit [facility] [address] 4th [place] [phone] Nelly Mesa, RD 909 [place] [address] 11/03/2023 8:00 AM CDT Office Visit [facility] [address] [place] [phone] Valery Veronica PA-C [address] [place] [address] 11/29/2023 8:00 AM CDT Office Visit [facility] [address] [place] [address] Esha Grimm PA-C [address] [place] [address] 01/02/2024 8:00 AM CDT Office Visit [facility] [address] [place] [phone] Lauren Claudio PA-C [address] [place] [address] Kelli Perez MD [address] [facility] 106 [place], [place] 673684 documented as of this encounter Visit Diagnoses Not on filedocumented in this encounter Additional Health Concerns Assessment Noted Time PHQ-9 Depression Total Score: 4 06/20/20 23 8:40 AM 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 documented as of this encounter Care Teams Metal Welder Relationship Specialty Start Date End Date Esha Grimm PA-C [id number] [place] [address] PCP - General Family Medicine 05/04/23 Diana Desir, [facility] 3033 [place] [address] Pharmacist Pharmacist 04/17/21 Rain Galaviz PA-C [address] [place] [address] [address] [place] [address] Physician Junior Graphic Designer Dermatology 04/28/21 Tavia Wyatt MD [address] [place] [address] [address] [place] [address] Dermatology 07/14/21 Erica Farrell APRN CDL BULK DRIVER [address] [place] 763225 Nurse Practitioner Cardiovascular Disease 09/09/21 Rich Barrett MD [address] [place] [address] 653435 Physician Ophthalmology 01/21/22 Neil Kent MD [address] [place] [address] 066705 Dermatology 02/24/22 Diana Desir, [facility] [address] [place] [address] Assigned MTM Pharmacist 04/07/22 Livan Sharif MD [address] [place] 618985 Cardiovascular Disease 05/14/22 Catherine Cm MD [address] [facility] [address] [place] [address] Cardiovascular Disease 07/21/22 Valery Veronica PA-C 909 [place], [place] 740705 Physician Junior Graphic Designer Dermatology 07/21/22 Brea Quinn APRN CDL BULK DRIVER [address] [place] [address] 015575 Nurse Practitioner Dermatology 09/21/22 Brea Quinn APRN CDL BULK DRIVER 6401 [place], [place] 685782 Assigned Surgical Provider 10/09/22 [place] [address] [facility] 300 [place] [address] Assigned Musculoskeletal Provider 10/09/22 Sydnie Martinez RN Personal Advocate & Liaison (PAL) Family Medicine 03/28/23 07/31/23 Alfonso Renteria MD 5775 [facility] 200 [place] [address] Assigned Neuroscience Provider 04/02/23 Cheng Todd PA-C [address] [place], [place] 41161124 Assigned PCP 04/30/23 07/15/23 Radha Lomeli APRN CDL BULK DRIVER [address] [facility] [address] [address] Assigned Heart and Vascular Provider 05/28/23 Jelena David OD 3305 [facility] [place] [address] Ophthalmology 06/15/23 documented as of this encounter
--- OUTSIDE RECORDS SUMMARY | 2023-10-15 21:52 | XMS_ITS | Encounter Summary ---
Author Name Unknown Organization [facility] Address [address] [place] [address] Care Team Providers Care Typewriter Aligner Name Role Phone DesirKenrdickDiana T [facility] Unavailable Rain GalavizC Unavailable Tavia Wyatt MD Unavailable Unavailable Erica Farrell APRN BUYER RENTER Unavailable Rich Barrett MD Unavailable Neil Kent MD Unavailable Diana Desir [facility] Unavailable Livan Sharif MD Unavailable Catherine Cm MD Unavailable + Valery Veronica-C Unavailable [phone] Brea Quinn PHYTOPATHOLOGIST BUYER RENTER Unavailable Brea Quinn PHYTOPATHOLOGIST BUYER RENTER Unavailable Jose Francisco Johnson MD Unavailable Sydnie Martinez RN Unavailable Unavailable Alfonso Renteria MD Unavailable + [phone] Esha Grimm PA-C Primary Care Provider [phone] Radha Lomeli PHYTOPATHOLOGIST BUYER RENTER Unavailable Jelena David OD Unavailable Esha Grimm PA-C Unavailable [phone] Encounter Details Date Type Department Care Team (Latest Contact Info) Description 07/21/2023 Travel Social History Tobacco Use Types Packs/Day [...] often do you attend [facility] or mormon services? 1 to 4 times [...] Answer Date Recorded PHQ-2 Score 0 06/20/2023 [facility] Occupat ional Health - Occupational Stress [...] at this level? 30 min 03/10/2023 [place] Depression Scale Answer Date Recorded [place] Depression Score 5 01/14/2021 Last EPDS Self [...] Description 10/25/2023 11:30 AM CDT Virtual Visit [facility] [place] 272249 [facility] 4th [place] [phone] Nelly Mes[address], RD 909 [place] [address] 11/03/2023 8:00 AM CDT Office Visit [facility] [address] [place] [phone] Valery Veronica PA-C [address] [place] [address] 11/29/2023 8:00 AM CDT Office Visit [facility] [address] [place] [address] Esha Grimm PA-C [address] [place] [address] 01/02/2024 8:00 AM CDT Office Visit [facility] [address] [place] [phone] Lauren Claudio PA-C [address] [place] [address] Kelli Perez MD [address] [facility] 106 [place], [place] [phone] documented as of this encounter Visit Diagnoses Not on filedocumented in this encounter Additional Health Concerns Assessment Noted Time PHQ-9 Depression Total Score: 4 06/20/20 23 8: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 documented as of this encounter Care Teams Typewriter Aligner Relationship Specialty Start Date End Date Esha Grimm PA-C [id number] [place] [address] PCP - General Family Medicine 05/04/23 Diana Desir, [facility] 3033 [place] [address] Pharmacist Pharmacist 04/17/21 Rain Galaviz PA-C [address] [place] [address] [address] [place] [address] Physician Fee Clerk Dermatology 04/28/21 Tavia Wyatt MD [address] [place] [address] [facility] [address] Dermatology 07/14/21 Erica Farrell APRN BUYER RENTER [address] [place] 948385 Nurse Practitioner Cardiovascular Disease 09/09/21 Rich Barrett MD [address] [place] [address] 259745 Physician Ophthalmology 01/21/22 Neil Kent MD [address] [place] [address] 680055 Dermatology 02/24/22 Diana Desir, [facility] [address] [place] [address] Assigned MTM Pharmacist 04/07/22 Livan Sharif MD [address] [place] 751345 Cardiovascular Disease 05/14/22 Catherine Cm MD [address] [facility] W[address] [place] [address] Cardiovascular Disease 07/21/22 Valery Veronica PA-C 909 [place], [place] 635475 Physician Fee Clerk Dermatology 07/21/22 Brea Quinn APRN BUYER RENTER [address] [place] [address] 458275 Nurse Practitioner Dermatology 09/21/22 Brea Quinn APRN BUYER RENTER 6401 [facility] [place] 264912 Assigned Surgical Provider 10/09/22 [place] [address] [address] [facility] 300 [place], [place] 757887 Assigned Musculoskeletal Provider 10/09/22 Sydnie Martinez RN Personal Advocate & Liaison (PAL) Family Medicine 03/28/23 07/31/23 Alfonso Renteria MD 5775 [facility] 200 [place] [address] Assigned Neuroscience Provider 04/02/23 Radha Lomeli APRN BUYER RENTER 6405 [facility] W[address] [place] [address] Assigned Heart and Vascular Provider 05/28/23 Jelena David OD [address] [facility] [place] [address] MD Ophthalmology 06/15/23 Esha Grimm PA-C [address] [place] [phone] Assigned PCP 07/16/23 documented as of this encounter
--- OUTSIDE RECORDS SUMMARY | 2023-10-15 21:52 | XMS_ITS | Encounter Summary ---
Author Name Unknown Organization [facility] Address [address] [place] [address] Care Team Providers Care Bread Pan Greaser Name Role Phone DesirKendrickDiana T [facility] Unavailable Rain GalavizC Unavailable Tavia Wyatt MD Unavailable Unavailable Erica Farrell APRN REPAIRER FINISHED METAL Unavailable Rich Barrett MD Unavailable Neil Kent MD Unavailable Diana Desir [facility] Unavailable Livan Sharif MD Unavailable Catherine Cm MD Unavailable + Valery Veronica-C Unavailable [phone] Brea Quinn POLYSTYRENE MOLDING MACHINE TENDER REPAIRER FINISHED METAL Unavailable Brea Quinn POLYSTYRENE MOLDING MACHINE TENDER REPAIRER FINISHED METAL Unavailable [phone] Jose Francisco Johnson MD Unavailable Sydnie Martinez RN Unavailable Unavailable Alfonso Renteria MD Unavailable + [phone] Esha Grimm PA-C Primary Care Provider hCeng ToddC Unavailable Radha Lomeli APRN REPAIRER FINISHED METAL Unavailable [phone] Jelena David OD Unavailable Pao Joseph RN Unavailable Unavailable Alfa Eshalincoln Medina PA-C Unavailable [phone] Valery Veronica PA-C Unavailable Rey Tay MD Unavailable Rocky Zepeda DO Unavailable Philip Dumont MD Unavailable [phone] Encounter Details Date Type Department Care Team (Late st Contact Info) Description 07/06/2023 MyC Medical Advice [facility] [address] [place] [address] Alfonso Renteria MD [address] [facility] [address] 200 [place] [address] Social History Tobacco Use Types [...] often do you attend chur ch or bahai services? 1 to 4 times per year [...] Answer Date Recorded PHQ-2 Score 0 06/20/2023 [facility] - Occupational Stress Questionnaire Answer [...] exercise at this level? 30 min 03/10/2023 [place] Depression Scale Answer Date Recorded [place] Depression Score 5 01/14/2021 Last EPDS Self Harm Result Not on file 01/14 Adolescent Education Answer Date Record ed Getting School Help Needed Not on file 04/04 Food Insecurity Answer Date Recorded Within the past 12 months, d id you worry that your food would run out before you got money to buy more? No 06/20/2023 Within the past 12 months, d id the food you bought just not last and you didn? t have money to get more? No 06/20/2023 Housing Stability Answer Date Recorded Do you have housing? Yes 06/20/2023 Are you worried about losing your housing? No 06/20/2023 Financial Resource Strain Answer Date R ecorded Within the past 12 months, h ave you or your family members you live with been unable to get utilities (heat, electricity) when it was really needed? No 06/20/2023 Transportation Needs Answer Date Record ed Within the past 12 months, h as lack of transportation kept you from medical appointments, getting your medicines, non-medical meetings or appointments, work, or from getting things that you need? No 06/20/2023 Interpersonal Safety Answer Date Record ed Do [...] encounter Miscellaneous Notes * Telephone Encounter - Genny Hyman PA-C - 07/07/2023 11:13 AM FINANCE EXECUTIVE No lesions/abnormal findings on MRI to account for possible seizure activity. Last office note indicated: If repeat MRI was normal would reduce levetiracetam to 250 mg per day for two weeks and then stop. Ok to proceed with this plan. Call if questions, concerns, or worsening of symptoms with discontinuation of the medication Genny Hyman PA-C NCE EXECUTIVE documented in this encounter Plan of Treatment Upcoming Encounters Date Type Department Care Team (Late st Contact Info) Description 10/25/2023 11:30 AM CDT Virtual Visit [facility] [address] [phone] Nelly Mesa, [address]09 [place] [address] 11/03/2023 8:00 AM CDT Office Visit [address] [address] Valery Veronica PA-C [address] [place] [address] 11/29/2023 8:00 AM CDT Office Visit [facility] [id number] [place] [address] Esha Grimm PA-C [id number] [place] [address] 01/02/2024 8:00 AM CDT Office Visit [facility] [address] [place] [phone] Lauren Claudio PA-C [address] [place] [address] Kelli Perez MD [address] [facility] 106 [place], [place] [phone] documented as of this encounter Visit Diagnoses Not on filedocumented in this encounter Additional Health Concerns Assessment Noted Time PHQ-9 Depression Total Score: 4 06/20/20 23 8:40 AM FINANCE EXECUTIVE documented as of this encounter Care Teams Bread Pan Greaser Relationship Specialty Start Date End Date Esha Grimm PA-C [id number] [place] [address] PCP - General Family Medicine 05/04/23 Diana Desir, [facility] [address] [place] [address] Pharmacist Pharmacist 04/17/21 Rain Galaviz PA-C [address] [place] [address] [address] [place] [address] Physician Decoration Checker Dermatology 04/28/21 Tavia Wyatt MD [address] [place] [address] [address] [facility] [address] Dermatology 07/14/21 Erica Farrell APRN REPAIRER FINISHED METAL [address] [place], [place] 6[address] Nurse Practitioner Cardiovascular Disease 09/09/21 Rich Barrett MD [address] 319925 Physician Ophthalmology 01/21/22 Neil Kent MD 500 [place], [place] 6[address] Dermatology 02/24/22 Diana [facility] 3033 [place], [place] 5625[address] Assigned MTM Pharmacist 04/07/22 Livan Sharif MD [address] [address] Cardiovascular Disease 05/14/22 Catherine Cm MD [address] 393065 Cardiovascular Disease 07/21/22 Valery Veronica, PA-C [address] [place] [address] Physician Decoration Checker Dermatology 07/21/22 Brea Quinn APRN REPAIRER FINISHED METAL 500 [place], [place] 4628[address] Nurse Practitioner Dermatology 09/21/22 Brea Quinn, POLYSTYRENE MOLDING MACHINE TENDER REPAIRER FINISHED METAL 6401 [facility] [place] [address] Assigned Surgical Provider 10/09/22 [place] [address] [address] [facility] 300 [place] [address] Assigned Musculoskeletal Provider 10/09/22 Sydnie Martinez, VJ Personal Advocate & Liaison (PAL) Family Medicine 03/28/23 07/31/23 Alfonso Renteria MD 5775 [facility] 200 [place], [place] 122396 Assigned Neuroscience Provider 04/02/23 Cheng Todd PA-C [address] [place], [place] [phone] Assigned PCP 04/30/23 07/15/23 Radha Lomeli APRN REPAIRER FINISHED METAL [address] [facility] [address] [place] [address] Assigned Heart and Vascular Provider 05/28/23 Jelena David OD [address] [facility] [address] Ophthalmology 06/15/23 Pao Joseph, VJ Personal Advocate & Liaison (PAL) Nurse 08/01/23 Esha Grimm PA-C [address] [place] [address] Assigned PCP 07/16/23 Valery Veronica, [address] 9 [place], [place] [address] Physician Decoration Checker Dermatology 09/19/23 Rey Tay MD [address] [place] [address] 509815 MD Gastroenterology 09/20/23 Rocky Zepeda DO [address] [place] [address] Physician Gastroenterology 09/20/23 Philip Dumont MD [address] [place] [address] 438905 Physician Ophthalmology 09/22/23 documented as of this encounter
--- OUTSIDE RECORDS SUMMARY | 2023-10-15 21:52 | XMS_ITS | Encounter Summary ---
Author Name Unknown Organization [place] Address [address] [place] [address] Care Team Providers Care Oracle Application Architect Name Role Phone DesirKendrickDiana T [facility] Unavailable Rain GalavizC Unavailable Tavia Wyatt MD Unavailable Unavailable Erica Farrell APRN TRANSPORT ANALYST Unavailable Rich Barrett MD Unavailable Neil Kent MD Unavailable Diana Desir [facility] Unavailable Livan Sharif MD Unavailable Catherine Cm MD Unavailable + Valery Veronica-C Unavailable [phone] Brea Quinn PRODUCT DEVELOPMENT TECHNICIAN TRANSPORT ANALYST Unavailable Brea Quinn PRODUCT DEVELOPMENT TECHNICIAN TRANSPORT ANALYST Unavailable Jose Francisco Johnson MD Unavailable Sydnie Martinez RN Unavailable Unavailable Alfonso Renteria MD Unavailable + [phone] Esha Grimm PA-C Primary Care Provider Cheng Todd PA-C Unavailable Radha Lomeli APRN TRANSPORT ANALYST Unavailable [phone] Jelena David OD Unavailable Pao Joseph RN Unavailable Unavailable Alfa Eshalincoln Medina PA-C Unavailable [phone] Valery Veronica PA-C Unavailable [phone] Rey Tay MD Unavailable Rocky Zepeda DO Unavailable Philip Dumont MD Unavailable [phone] Encounter Details Date Type Department Care Team (Late st Contact Info) Description 06/15/2023 MyC Medical Advice [facility] [address] [place] [address] Doris Levi Social History Tobacco Use Types Packs/Day Years Used Date Smoking Tobacco: Former Cigarettes 1 Q uit: 12/07/2019 Other Smokeless Tobacco: Never Alcohol Use Standard Drinks/Week Comments Not Currently 0 (1 standard drink = 0.6 oz pur e alcohol) Humiliation, Afraid, Rape, and Kick questionnair e Answer Date Recorded Within the last year, have y ou been afraid of your partner or ex-partner? No 08/11/2020 Within the last year, have y ou been humiliated or emotionally abused in other ways by your partner or ex-partner? No Within the last year, have y ou been kicked, hit, slapped, or otherwise physically hurt by your partner or ex-partner? No 08/11/2020 Within the last year, have y ou been raped or forced to have any kind of sexual activity by your partner or ex-partner? No 08/11/2020 Social Connection and Isolation Panel [NHANES] A nswer Date Recorded In a typical week, how many times do you talk on the phone with family, friends, or neighbors? Three times a week 03/10/20 How often do you get togethe r with friends or relatives? Twice a week 03/10/2023 How often do you attend chur ch or gnosticist services? 1 to 4 times per year [...] 03/10/2023 PHQ-2 Answer Date Recorded PHQ-2 Score 1 05/16/2023 [facility] - Occupational Stress Questionnaire Answer Date [...] you got money to buy more? No 04/18/2023 Within the past 12 months, d id the food you bought just not last and you didn? t have money to get more? No 04/18/2023 Housing Stability Answer Date Recorded Do you have housing? Yes 04/18/2023 Are you worried about losing your housing? No 04/18/2023 Financial Resource Strain Answer Date R ecorded Within the past 12 months, h ave you or your family members you live with been unable to get utilities (heat, electricity) when it was really needed? No 04/18/2023 Transportation Needs Answer Date Record ed Within the past 12 months, h as lack of transportation kept you from medical appointments, getting your medicines, non-medical meetings or appointments, work, or from getting things that you need? No 04/18/2023 Education Answer Date Recorded What is the [...] [facility] [address] [place] [phone] Nelly Mesa, RD [address] [place] [address] 11/03/2023 8:00 AM CDT Office Visit [address] [phone] Valery Veronica PA-C [address] [place] [address] 11/29/2023 8:00 AM CDT Office Visit [facility] [phone] [place] [address] Esha Grimm PA-C [address] [place] [address] 01/02/2024 8:00 AM CDT Office Visit [facility] [address] [phone] Lauren Claudio PA-C [address] [place], [place] [phone] Kelli Perez MD [address] [place], [place] [address]64 documented as of this encounter Visit Diagnoses Not on filedocumented in this encounter Additional Health Concerns Assessment Noted Time PHQ-9 Depression Total Score: 6 05/16/20 23 9:29 AM SPARK TESTER documented as of this encounter Care Teams Oracle Application Architect Relationship Specialty Start Date End Date Esha Grimm PA-C [address] [place] [phone] PCP - General Family Medicine 05/04/23 [facility] [place], [place] [address] Pharmacist Pharmacist 04/17/21 Rain Galaviz PA-C [address] [place] [address] [address] [place] [address] Physician Industrial Economics Professor Dermatology 04/28/21 Tavia Wyatt MD [address] [place] [address] [address] [place] [address] Dermatology 07/14/21 Erica Farrell APRN TRANSPORT ANALYST 6405 [facility] [address] [place] [address] Nurse Practitioner Cardiovascular Disease 09/09/21 Rich Barrett MD 6 [facility] 9A [place] [address] Physician Ophthalmology 01/21/22 Neil Kent MD 500 [place], [place] 219965 Dermatology 02/24/22 Diana Desir, [facility] 3033 [place], [place] [address] Assigned MTM Pharmacist 04/07/22 Livan Sharif MD [address] [place] [address]185 Cardiovascular Disease 05/14/22 Catherine Cm MD [address] [facility] [place] [address] Cardiovascular Disease 07/21/22 Valery Veronica, PA-C 909 [place], [place] [address] Physician Industrial Economics Professor Dermatology 07/21/22 Brea Quinn APRN TRANSPORT ANALYST 500 [place] [address] Nurse Practitioner Dermatology 09/21/22 Brea Quinn APRN TRANSPORT ANALYST 6401 [facility] [place] [address]842 Assigned Surgical Provider 10/09/22 [place] [address] [place] [address] Assigned Musculoskeletal Provider 10/09/22 Sdynie Martinez RN Personal Advocate & Liaison (PAL) Family Medicine 03/28/23 07/31/23 Alfonso Renteria MD 5775 [facility] [address] 200 [place] [address] Assigned Neuroscience Provider 04/02/23 Cheng Todd PA-C [address] [place], [place] [phone] Assigned PCP 04/30/23 07/15/23 Radha Lomeli APRN TRANSPORT ANALYST 6405 [facility] [address] [place] [address] Assigned Heart and Vascular Provider 05/28/23 Jelena David OD [address] [facility] [place] [address] Ophthalmology 06/15/23 Pao Joseph, VJ Personal Advocate & Liaison (PAL) Nurse 08/01/23 Esha Grimm PAUcheC [address] [place] [phone] Assigned PCP 07/16/23 Valery Veronica PA-C 909 [place], [place] 273515 Physician Industrial Economics Professor Dermatology 09/19/23 Rey Tay MD 909 [place] [address] Gastroenterology 09/20/23 Rocky Zepeda DO [address] [place] [address] Physician Gastroenterology 09/20/23 Philip Dumont MD [address] [place] [address] Physician Ophthalmology 09/22/23 documented as of this encounter
--- OUTSIDE RECORDS SUMMARY | 2023-10-15 21:52 | XMS_ITS | Encounter Summary ---
Author Name Unknown Organization [facility] Address [address] [place] [address] Care Team Providers Care Loss Prevention Guard Name Role Phone HerveMarija APRN HEAD OF SALES AND MARKETING Unavailable Unavail able Diana Desir [facility] Unavailable [phone] Rain Galaviz PA-C Unavailable [phone] Tavia Wyatt MD Unavailable Unavailable Erica Farrell APRN HEAD OF SALES AND MARKETING Unavailable Rich Barrett MD Unavailable [phone] Neil Kent MD Unavailable Diana Desir [facility] Unavailable [phone] Livan Sharif MD Unavailable Catherine Cm MD Unavailable + Valery Veronica PA-C Unavailable [phone] Brea Quinn APPLICATIONS TRAINER HEAD OF SALES AND MARKETING Unavailable Brea Quinn APPLICATIONS TRAINER HEAD OF SALES AND MARKETING Unavailable [phone] Jose Francisco Johnson MD Unavailable Catherine Cm MD Unavailable + Sydnie Martinez RN Unavailable Unavailable Alfonso Renteria MD Unavailable + [phone] Esha Grimm PA-C Primary Care Provider [phone] Cheng Todd PA-C Unavailable Armani Radha Stovall APRN HEAD OF SALES AND MARKETING Unavailable [phone] Jelena David OD Unavailable Pao Joseph RN Unavailable Unavailable Esha Grimm PA-C Unavailable [phone] Valery Veronica PA-C Unavailable [phone] Rey Tay MD Unavailable Rocky Zepeda DO Unavailable Philip Dumont MD Unavailable [phone] Encounter Details Date Type Department Care Team (Late st Contact Info) Description 04/18/2023 MyC Medical Advice [facility] Clinic [address] [address] Mary Calvo Social History Tobacco Use Types Packs/Day Years [...] friends, or neighbors? Three times a week 08/31/20 23 How often do you get togethe r with friends or relatives? Twice a week 03/10/2023 How often do you attend chur or mormonism services? 1 to 4 times per year 03/10/2023 Do you belong to any clubs o r organizations such as voodoo groups, unions, fraternal or athletic groups, [...] PHQ-2 Answer Date Recorded PHQ-2 Score 0 03/10/2023 [facility] of Occupat ional Health - Occupational Stress [...] exercise at this level? 30 min 03/10/2023 [place] Depression Scale Answer Date Recorded [place] Depression Score 5 01/14/2021 Last EPDS [...] Orientation Straight 02/28/2020 12 :51 AM CDT COVID-19 Exposure Response Date Recorded In the last 10 days, have yo u been in contact with someone who was confirmed or suspected to have Coronavirus/COVID-19? No / Unsure 04/18/2023 7:29 AM CDT documented as of this encounter Plan of Treatment Upcoming Encounters Date Type Department Care Team (Late st Contact Info) Description 10/25/2023 11:30 AM CDT Virtual Visit [facility]ology [facility] [address] [place] [phone] Nelly Mesa, RD 909 [place] [address] 11/03/2023 8:00 AM CDT Office Visit [address] [address] Valery Veronica PA-C [address] [place] [address] 11/29/2023 8:00 AM CDT Office Visit [address] [phone] Esha Grimm PA-C [address] [place] [phone] 01/02/2024 8:00 AM CDT Office Visit [facility] [address] [place] [phone] Lauren Claudio PA-C [address] [place], [place] [phone] Kelli Perez MD [address] [facility] 106 [place], [place] [phone] documented as of this encounter Visit Diagnoses Not on filedocumented in this encounter Additional Health Concerns Assessment Noted Time PHQ-9 Depression Total Score: 5 03/10/20 6:49 AM CDT documented as of this encounter Care Teams Loss Prevention Guard Relationship Specialty Start Date End Date Esha Grimm PA-C [address] [place] [phone] PCP - General Family Medicine 05/04/23 Marija Edgar APRN CNP Assigned PCP 06/08/20 04/29/23 [facility] 3033 [place] [address] Pharmacist Pharmacist 04/17/21 Rain Galaviz PA-C [address] [place] [address] [address] [place] [address] Physician Varnish Melter Helper Dermatology 04/28/21 Tavia Wyatt MD [address] [place] [address] [address] [place] [address] Dermatology 07/14/21 Erica Farrell APRN HEAD OF SALES AND MARKETING [address] [place], [place] [address] Nurse Practitioner Cardiovascular Disease 09/09/21 Rich Barrett MD 516 [facility] 9A [place] [address] Physician Ophthalmology 01/21/22 Neil Kent MD 500 [place] [address] Dermatology 02/24/22 Diana Desir, [facility] 30[address] [place], [place] [address] Assigned MTM Pharmacist 04/07/22 Livan Sharif MD [address] [place], [place] 8219[address] Cardiovascular Disease 05/14/22 Catherine Cm MD [address] [address] Cardiovascular Disease 07/21/22 Valery Veronica, PA-C 909 [place], [place] [address] Physician Varnish Melter Helper Dermatology 07/21/22 Brea Quinn APRN HEAD OF SALES AND MARKETING 500 [place], [place] [phone] Nurse Practitioner Dermatology 09/21/22 Brea Quinn APRN HEAD OF SALES AND MARKETING 6401 [facility] [place] [address] Assigned Surgical Provider 10/09/22 [place] [address] [facility] 300 [place] [address] Assigned Musculoskeletal Provider 10/09/22 Catherine Cm MD [address] [place] [address] Assigned Heart and Vascular Provider 11/13/22 05/27/23 Sydnie Martinez RN Personal Advocate & Liaison (PAL) Family Medicine 03/28/23 07/31/23 Alfonso Renteria MD 5775 [facility] 200 [place] [address] Assigned Neuroscience Provider 04/02/23 Cheng Todd PA-C [address] [place] [address] Assigned PCP 04/30/23 07/15/23 Radha Lomeli APRN HEAD OF SALES AND MARKETING [address] [place] [address] Assigned Heart and Vascular Provider 05/28/23 Jelena David OD [address] [facility] [place] [address] Ophthalmology 06/15/23 Pao Joseph RN Personal Advocate & Liaison (PAL) Nurse 08/01/23 Esha Grimm PA-C [address] [place] [address] Assigned PCP 07/16/23 Valery Veronica PA-C [address] [place] [address] Physician Varnish Melter Helper Dermatology 09/19/23 Rey Tay MD [address] [place] [address] Gastroenterology 09/20/23 Rocky Zepeda DO [address] [place] [address]365 Physician Gastroenterology 09/20/23 Philip Dumont MD [address] [place] [address]4595 Physician Ophthalmology 09/22/23 documented as of this encounter
--- OUTSIDE RECORDS SUMMARY | 2023-10-15 21:52 | XMS_ITS | Encounter Summary ---
Author Name Unknown Organization [place] Address [address] [place] [address] Care Team Providers Care Gear Cutter Name Role Phone DesirKendrickDiana T [facility] Unavailable Rain GalavizC Unavailable Tavia Wyatt MD Unavailable Unavailable Erica Farrell APRN MULTIMEDIA ARTIST Unavailable Rich Barrett MD Unavailable Neil Kent MD Unavailable Diana Desir [facility] Unavailable Livan Sharif MD Unavailable Catherine Cm MD Unavailable + Valery Veronica-C Unavailable [phone] Brea Quinn PAPER PATTERN FOLDER MULTIMEDIA ARTIST Unavailable [phone] Brea Quinn PAPER PATTERN FOLDER MULTIMEDIA ARTIST Unavailable Jose Francisco Johnson MD Unavailable Sydnie Martinez RN Unavailable Unavailable Alfonso Renteria MD Unavailable + [phone] Esha Grimm PA-C Primary Care Provider Cheng ToddC Unavailable Radha Lomeli APRN MULTIMEDIA ARTIST Unavailable [phone] Jelena David OD Unavailable Pao Joseph RN Unavailable Unavailable Alfa Eshalincoln Medina PA-C Unavailable [phone] Valery Veronica PA-C Unavailable [phone] Rey Tay MD Unavailable Rocky Zepeda DO Unavailable Philip Dumont MD Unavailable Encounter Details Date Type Department Care Team (Late st Contact Info) Description 06/17/2023 MyC Medical Advice [facility] [address], [address] [place] [address] Alfonso Renteria MD [address] [facility] [address] [place] [address] Social History Tobacco Use Types [...] any clubs o r organizations such as shinto groups, unions, fraternal or athletic groups, [...] PHQ-2 Score 0 06/20/2023 [facility] - Occupational Stress Questionnaire Answer [...] exercise at this level? 30 min 03/10/2023 York Depression Scale Answer Date Recorded York Depression Score 5 01/14/2021 Last EPDS Self [...] encounter Miscellaneous Notes * Telephone Encounter - Lulu Xie - 06/28/2023 12:08 PM CST Patient calling to follow up on the below Application Craft message. Patient continues to have a lot of dizzyness and neck pain. ER OCEAN YACHT documented in this encounter Plan of Treatment Upcoming Encounters Date Type Department Care Team (Late st Contact Info) Description 10/25/2023 11:30 AM CDT Virtual Visit [facility] [address] [phone] [address]elly [address], [address] [place] [address] 11/03/2023 8:00 AM CDT Office Visit [facility] [address] [place] [address] Valery Veronica PA-C [address] [place] [address] 11/29/2023 8:00 AM CDT Office Visit [address] [address] Esha Grimm PA-C [address] [place] [phone] 01/02/2024 8:00 AM CDT Office Visit [facility] [address] [place] [phone] Lauren Claudio PA-C [address] [place], [place] [phone] Kelli Perez MD [address] [facility] 106 [place], [place] [phone] documented as of this encounter Visit Diagnoses Not on filedocumented in this encounter Additional Health Concerns Assessment Noted Time PHQ-9 Depression Total Score: 6 05/16/20 23 9:29 AM MASTER OCEAN YACHT documented as of this encounter Care Teams Gear Cutter Relationship Specialty Start Date End Date Esha Grimm PA-C [address] [place] [phone] PCP - General Family Medicine 05/04/23 Diana Desir, [facility] [address] [facility] [place] [address] Pharmacist Pharmacist 04/17/21 Rain Galaviz PA-C [address] [place] [address] [address] [place] [address] Physician Fruit Trimmer Dermatology 04/28/21 Tavia Wyatt MD [address] [place] [address] [address] [place] [address] Dermatology 07/14/21 Erica Farrell APRN MULTIMEDIA ARTIST [address] [place], [place] [address] Nurse Practitioner Cardiovascular Disease 09/09/21 Rich Barrett MD [address] [facility] [address] [place], [place] [address] Physician Ophthalmology 01/21/22 Neil Kent MD 500 [place], [place] [address] Dermatology 02/24/22 Diana Desir, [facility] [address] [place], [place] [address] Assigned [facility] Pharmacist 04/07/22 Livan Sharif MD [address], [address] [place] [address] Cardiovascular Disease 05/14/22 Catherine Cm MD [address] [place], [place] [address] Cardiovascular Disease 07/21/22 Valery Veronica, PAUcheC [address] [place] [address] Physician Fruit Trimmer Dermatology 07/21/22 Brea Quinn APRN MULTIMEDIA ARTIST [address] [place], [place] [address] Nurse Practitioner Dermatology 09/21/22 Brea Quinn APRN MULTIMEDIA ARTIST [address] [place] [address] [place] [address] Assigned Surgical Provider 10/09/22 [place] [address] [place] [address] Assigned Musculoskeletal Provider 10/09/22 Sydnie Martinez RN Personal Advocate & Liaison (PAL) Family Medicine 03/28/23 07/31/23 Alfonso Renteria MD [address] [facility] 200 [place], [place] [address] Assigned Neuroscience Provider 04/02/23 Cheng Todd PA-C [address] [place], [place] [phone] Assigned PCP 04/30/23 07/15/23 Radha Lomeli APRN MULTIMEDIA ARTIST [address] [place], [place] [address] Assigned Heart and Vascular Provider 05/28/23 Jelena David OD [address] [facility] [place] [address] Ophthalmology 06/15/23 Pao Joseph, VJ Personal Advocate & Liaison (PAL) Nurse 08/01/23 Esha Grimm PA-C [address] [place] [phone] Assigned PCP 07/16/23 Valery Veronica PA-C [address] [place], [place] 4[address] Physician Fruit Trimmer Dermatology 09/19/23 Rey Tay MD 9 [place], [place] [address] MD Gastroenterology 09/20/23 Rocky Zepeda DO [address] [place] [address] Physician Gastroenterology 09/20/23 Philip Dumont MD 6 [place], [place] [address] Physician Ophthalmology 09/22/23 documented as of this encounter
--- OUTSIDE RECORDS SUMMARY | 2023-10-15 21:52 | XMS_ITS | Encounter Summary ---
Author Name Unknown Organization [place] Address [address] [place] [address] Care Team Providers Care Cloth Printing Inspector Name Role Phone DesirKendrickDiana T [facility] Unavailable [phone] Rain GalavizC Unavailable Tavia Wyatt MD Unavailable Unavailable Erica Farrell APRN ROLL UP OPERATOR Unavailable Rich Barrett MD Unavailable Neil Kent MD Unavailable Diana Desir [facility] Unavailable [phone] Livan Sharif MD Unavailable Catherine Cm MD Unavailable + Valery Veronica-C Unavailable [phone] Brea Quinn DIE FORGER ROLL UP OPERATOR Unavailable Brea Quinn DIE FORGER ROLL UP OPERATOR Unavailable Jose Francisco Johnson MD Unavailable Sydnie Martinez RN Unavailable Unavailable Alfonso Renteria MD Unavailable + [phone] Esha Grimm PA-C Primary Care Provider [phone] Cheng Todd PA-C Unavailable Radha Lomeli APRN ROLL UP OPERATOR Unavailable Jelena David OD Unavailable Reason for Referral * Diagnostic Imaging Ultrasound (Routine) - Pending Review Specialty Diagnoses / Procedures Referred By Contparviz t Referred To Contact Radiology. Diagnoses Abdominal discomfort, bilateral lower quadrant Procedures US Pelvic Complete with Transvaginal Esha Grimm PA-C [address] [place] [address] Referral ID Status Reason Start Date Expiration Date V isits Requested Visits Authorized [id number] Pending Review 07/14/2023 07/13/2024 1 1 ER OPERATOR Reason for Visit * Reason Comments Dizziness Encounter Details Date Type Department Care Team (Late st Contact Info) Description 07/14/2023 8:30 AM WINDER OPERATOR Office Visit [facility] [address] [place] [phone] Esha Grimm PA-C [address] [place] [address] Dizziness (Primary Dx); Elevated TSH; Abdominal discomfort, bilateral lower quadrant Social History Tobacco Use Types Packs/Day Years [...] week 03/10/2023 How often do you attend [facility] or latter day services? 1 to 4 times per year 03/10/2023 Do you belong to any clubs o r organizations such as zoroastrianism groups, unions, fraternal or athletic groups, [...] Answer Date Recorded PHQ-2 Score 0 06/20/2023 [facility] - Occupational Stress [...] exercise at this level? 30 min 03/10/2023 Damascus Depression Scale Answer Date Recorded Damascus Depression Score 5 01/14/2021 Last EPDS Self [...] Sign Reading Time Taken Comments Blood Pressure 101/62 07/14/2023 8:21 AM WINDER OPERATOR Pulse 64 07/14/2023 8:21 AM WINDER OPERATOR Temperature 36.8 ??C (98.3 ??F) 07/14/2023 8:21 AM CS T Respiratory Rate 16 07/14/2023 8:21 AM WINDER OPERATOR Oxygen Saturation 100% 07/14/2023 9:36 AM WINDER OPERATOR Inhaled Oxygen Concentration - - Weight 83.2 kg (183 lb 6.4 oz) 07/14/2023 8:21 A M WINDER OPERATOR Height 167.6 cm (5' 6) 07/14/2023 8:21 AM WINDER OPERATOR Body Mass Index 29.6 07/14/2023 8:21 AM WINDER OPERATOR documented in this encounter Progress Notes * Esha Grimm PA-C - 07/14/2023 8:30 AM CST Assessment & Plan (R42) Dizziness (primary encounter diagnosis) Orthostatic pressures completed in clinic today and unremarkable. Patient has been having dizzinessfor > 6 months. Has been following with Neurologist and Catering Service Manager with regards to ongoing dizziness concerns. She also follows with [facility] for medication management. She has upcoming visits with them as well. Thyroid could be contributing to symptoms but thyroid testing prior to several weeks ago was normal and with dizziness ongoing for months seems less likely. Could still be component of hypotension as patient without orthostatic hypotension but still slightly low blood pressure at baseline in clinic today. Plan: TSH, T4, free (R79.89) Elevated TSH TSH was elevated several weeks ago, new for the patient. T4 normal. With recent symptoms could be secondary to subclinical hypothyroidism. Will plan to recheck TSH today. Plan: TSH, T4, free (R10.31, R10.32) Abdominal discomfort, bilateral lower quadrant Bilateral intermittent lower abdominal discomfort. History of ovarian cysts. Seems to be worse withmenstrual cycles. Will get pelvic ultrasound to further assess for possible PCOS, ovarian cyst or other abnormalities. Plan: US Pelvic Complete with Transvaginal Follow up in 3 months for follow up; sooner with any acute concerns. ROVERTO [facility] Dario Alvarez is a 23 year old, presenting for the following health issues: Dizziness 07/14/2023 8:20 AM Additional Questions Roomed by Jeremy Raymond History of Present Illness Reason for visit: First initial appointment with new primary, and ongoing issues with dizziness etc. She eats 2-3 servings of fruits and vegetables daily.She consumes 1 sweetened beverage(s) daily.Sheexercises with enough effort to increase her heart rate 10 to 19 minutes per day. She exercises with enough effort to increase her heart rate 3 or less days per week. She is taking medications regularly. Dizziness Onset/Duration: 6 months Description: Do you feel faint: YES Does it feel like the surroundings (bed, room) are moving: YES Unsteady/off balance: YES Have you passed out or fallen: No Intensity: moderate Progression of Symptoms: worsening and intermittent Accompanying Signs & Symptoms: Heart palpitations or chest pain: YES- occasionally Nausea, vomiting: YES- nausea Weakness or lack of coordination in arms or legs: No Vision or speech changes: No Numbness or tingling: YES Ringing in ears (Tinnitus): No Hearing Loss: No History: Head trauma/concussion history: No Previous similar symptoms: YES Recent bleeding history: No Any new medications (BP?): No Precipitating factors: Worse with activity: YES- standing Worse with head movement: YES Alleviating factors: Does staying in a fixed position give relief: YES- depends, sitting occasionally helps Therapies tried and outcome: None Review of Systems Constitutional, HEENT, cardiovascular, pulmonary, gi and gu systems are negative, except as otherwise noted. Objective BP 101/62 (BP Location: Left arm, Patient Position: Chair, Cuff Size: Adult Large) Pulse 64 Temp 98.3 ??F (36.8 ??C) (Oral) Resp 16 Ht 1.676 m (5' 6) Wt 83.2 kg (183 lb 6.4 oz) SpO2 100% BMI 29.60 kg/m?? Body mass index is 29.6 kg/m??. Physical Exam GENERAL: healthy, alert and no distress RESP: lungs clear to auscultation - no rales, rhonchi or wheezes CV: regular rate and rhythm, normal S1 S2, no S3 or S4, no murmur, click or rub MS: no gross musculoskeletal defects noted, no edema ER OPERATOR documented in this encounter Plan of Treatment Upcoming Encounters Date Type Department Care Team (Late st Contact Info) Description 10/25/2023 11:30 AM CDT Virtual Visit [facility] [address] [place] [phone] [address]elly [address], [address] [place] [address] 11/03/2023 8:00 AM CDT Office Visit [address] [phone] Valery Veronica PA-C [address] [place] [address] 11/29/2023 8:00 AM CDT Office Visit [address] [phone] Esha Grimm PA-C [address] [place] [phone] 01/02/2024 8:00 AM CDT Office Visit [facility] [address] [place] [phone] Lauren Claudio PA-C [address] [place] [address] Kelli Perez MD [address] [facility] 106 [place] [address] documented as of this encounter Procedures Procedure Name Priority Date/Time Associated Diagnosis Comments TSH Routine 07/14/2023 9:41 AM WINDER OPERATOR Elevated TSH Dizziness T4 FREE Routine 07/14/2023 9:41 AM WINDER OPERATOR Elevated TSH Dizziness documented in this encounter Results * US Pelvic Complete with Transvaginal (07/21/2023 9:57 AM WINDER OPERATOR) Anatomical Region Laterality Modality Abdomen/Pelvis Ultrasound Narrative 07/21/2023 12:20 PM WINDER OPERATOR [facility] ULTRASOUND - PELVIC CHEESE COOKER- Transabdominal and Transvaginal Referring MD: Esha Grimm [...] Gloria Espinal, DO ?? Obstetrics and Gynecology [facility] Esha Grimm PA-C IMG US ORDERABLES * T4, free (07/14/2023 9:41 AM WINDER OPERATOR) Free T4 1.04 0.90 - 1.70 ng/dL 07/14/2023 7:34 PM WINDER OPERATOR [facility] Blood BLOOD SPECIMEN / Unknown Venipuncture / Unknown 07/14/2023 9:41 AM WINDER OPERATOR 07/14/2023 9:41 AM WINDER OPERATOR Esha Grimm PA-C LAB - BLOOD ORDERABL ES [facility] [place] [facility] Lab [address] [facility], Room [address] [place] [phone], [facility] [phone] * TSH (07/14/2023 9:41 AM WINDER OPERATOR) TSH 2.53 0.30 - 4.20 uIU/mL 07/14/2023 7:34 PM WINDER OPERATOR [facility] Blood BLOOD SPECIMEN / Unknown Venipuncture / Unknown 07/14/2023 9:41 AM WINDER OPERATOR 07/14/2023 9:41 AM WINDER OPERATOR Esha Grimm PA-C LAB - BLOOD ORDERABL ES [facility] [place] [facility] 500 [facility] [address], Room [address] [place] [address], [facility] [phone] documented in this encounter Visit Diagnoses Diagnosis Dizziness- Primary Dizziness and giddiness Elevated TSH Other abnormal blood chemistry Abdominal discomfort, bilateral lower quadrant Abdominal pain, other specified site Abdominal discomfort, bilateral lower quadrant Abdominal pain, other specified site documented in this encounter Additional Health Concerns Assessment Noted Time PHQ-9 Depression Total Score: 4 06/20/20 23 8:40 AM WINDER OPERATOR documented as of this encounter Care Teams Cloth Printing Inspector Relationship Specialty Start Date End Date Esha Grimm PA-C [address] [place] [phone] PCP - General Family Medicine 05/04/23 Diana Desir [facility] [address] [place] [address] Pharmacist Pharmacist 04/17/21 Rain Galaviz PA-C [address] [place] [address] [address] [place] [address] Physician Voting Machine Repairer Dermatology 04/28/21 Tavia Wyatt MD [address] [place] [address] [address] [place] [address] Dermatology 07/14/21 Erica Farrell APRN ROLL UP OPERATOR [address] [facility] [address] [place] [address] Nurse Practitioner Cardiovascular Disease 09/09/21 Rich Barrett MD 516 [facility] [address] [place], [place] [address] Physician Ophthalmology 01/21/22 Neil Kent MD 500 [place], [place] [address] Dermatology 02/24/22 Diana Desir, [facility] [address] [place], [place] [address] Assigned [facility] Pharmacist 04/07/22 Livan Sharif MD [address] [facility] [address] [facility] [place] [address] Cardiovascular Disease 05/14/22 Catherine Cm MD [address] [facility] [place] [address] Cardiovascular Disease 07/21/22 Valery Veronica, PAUcheC [address] [place], [place] [address] Physician Voting Machine Repairer Dermatology 07/21/22 Brea Quinn APRN ROLL UP OPERATOR 500 [place], [place] [address] Nurse Practitioner Dermatology 09/21/22 Brea Quinn APRN ROLL UP OPERATOR [address]01 [place] [address] Assigned Surgical Provider 10/09/22 [place] [address] [place] [address] Assigned Musculoskeletal Provider 10/09/22 Juan, Sydnie M, RN Personal Advocate & Liaison (PAL) Family Medicine 03/28/23 07/31/23 Alfonso Renteria MD [address] [place] [address] Assigned Neuroscience Provider 04/02/23 Cheng Todd PA-C [address] [place], [place] [phone] Assigned PCP 04/30/23 07/15/23 Radha Lomeli APRN ROLL UP OPERATOR [address] [place] [address] Assigned Heart and Vascular Provider 05/28/23 Jelena David OD [address] [facility] [place] [address] Ophthalmology 06/15/23 documented as of this encounter
--- OUTSIDE RECORDS SUMMARY | 2023-10-15 21:52 | XMS_ITS | Encounter Summary ---
Author Name Unknown Organization [place] Address [address] [place] [address] Care Team Providers Care Assembly Room Supervisor Name Role Phone DesirKendrickDiana T [facility] Unavailable [phone] Rain GalavizC Unavailable Tavia Wyatt MD Unavailable Unavailable Erica Farrell APRN SAND DRIER Unavailable Rich Barrett MD Unavailable Neil Kent MD Unavailable Diana Desir [facility] Unavailable Livan Sharif MD Unavailable Catherine Cm MD Unavailable + Valery Veronica-C Unavailable [phone] Brea Quinn TALENT ACQUISITION SPECIALIST SAND DRIER Unavailable Brea Quinn TALENT ACQUISITION SPECIALIST SAND DRIER Unavailable Jose Francicso Johnson MD Unavailable Sydnie Martinez RN Unavailable Unavailable Alfonso Renteria MD Unavailable + [phone] José Miguel Pritchard PA-C Primary Care Provider Radha Lomeli TALENT ACQUISITION SPECIALIST SAND DRIER Unavailable Jelena David OD Unavailable José Miguel Pritchard PA-C Unavailable [phone] Reason for Visit * Reason Comments Medication Therapy Management Encounter Details Date Type Department Care Team (Late st Contact Info) Description 07/27/2023 4:00 PM CARDIAC CATH LAB TECHNOLOGIST Virtual Visit [address] [address] Diana Desir, [facility] [address] [place], [place] [phone] Anxiety (Primary Dx); Moderate major depression (H); Paroxysmal supraventricular tachycardia; Gastroesophageal reflux disease with esophagitis without hemorrhage; Seizure (H); Psoriasis Social History Tobacco Use Types Packs/Day [...] often do you attend chur ch or orthodoxy services? 1 to 4 times per year 03/10/2023 Do you belong to any clubs o r organizations such as jew groups, unions, fraternal or athletic groups, [...] Answer Date Recorded PHQ-2 Score 0 06/20/2023 [facility] [place] of Occupat ional [facility] - Occupational Stress Questionnaire Answer Date Recorded [...] exercise at this level? 30 min 03/10/2023 [place] Depression Scale Answer Date Recorded [place] Depression Score 5 01/14/2021 Last EPDS Self [...] * Patient Instructions* Diana Desir RPH - 07/27/2023 4:00 PM CARDIAC CATH LAB TECHNOLOGIST Recommendations from today's MTM visit: Decrease paroxetine to 20 mg daily for 1 week. If this goes okay and no worsened symptoms, decreasefurther to 10 mg daily (quarter tablet) and start venlafaxine 37.5 mg daily. Stop taking the paroxetine 10 mg daily after 7 days if no withdrawal symptoms. If you have worsened anxiety or other symptoms when you decrease the paroxetine dose to 20 mg, start the venlafaxine right away with it and letme know. It was great speaking with you today. I value your experience and would be very thankful for your time in providing feedback in our clinic survey. In the next few days, you may receive an email or text message from [employer] with a link to a survey related to your ???clinical pharmacist. To schedule another MTM appointment, please call the clinic directly or you may call the MTM scheduling line at [phone] or toll-free at . My Clinical Pharmacist's contact information: Please feel free to contact me with any questions or concerns you have. Diana Desir, PharmD, BCACP Medication Therapy Management Provider, [facility] IAC CATH LAB TECHNOLOGIST documented in this encounter Progress Notes * Diana Desir RPH - 07/27/2023 4:00 PM CST Medication Therapy Management (MTM) Encounter ASSESSMENT: Medication Adherence/Access: No issues identified Anxiety/Depression: Worsened. Discussed changing paroxetine to either escitalopram or venlafaxine. Will try venlafaxine first instead of another selective serotonin reuptake inhibitor. Pharmacokinetic Gene Variants Gene Phenotype Notable Medications Impacted CYP2C9 Intermediate Metabolizer *1/*2 MTHFR Reduced Conversion Palpitations: Improved, monitor dizziness. Could also consider switching metoprolol to propranolol for additionalanxiety benefit. GERD: stable Hx Seizures: stable Psoriasis: Following dermatology PLAN: Decrease paroxetine to 20 mg daily for 1 week. If this goes okay and no worsened symptoms, decreasefurther to 10 mg daily (quarter tablet) and start venlafaxine 37.5 mg daily. Stop taking the paroxetine 10 mg daily after 7 days if no withdrawal symptoms. If you have worsened anxiety or other symptoms when you decrease the paroxetine dose to 20 mg, start the venlafaxine right away with it and letme know. Follow-up: Return in about 1 month (around 08/27/2023) for Medication Therapy Management Pharmacist. SUBJECTIVE/OBJECTIVE: Kim Johnson is a 23 year old female called for a follow-up visit from 12/13. Reason for visit: anxiety. Tobacco: She reports that she quit smoking about 3 years ago. Her smoking use included other and cigarettes. She smoked an average of 1 pack per day. She has never used smokeless tobacco. Alcohol: not currently using Medication Adherence/Access: no issues reported Anxiety/Depression: paroxetine 40 mg daily AM Lorazepam 0.5 mg as needed (needing about once weekly normally but needing more lately d/t stress) Has been feeling more sick lately and wondering due to stress anxiety. Back to school. However she feels her symptoms are not related to anxiety but not sure if due to paroxetine side effects. See mychart encounter from 07/06/23. Started school recently again which has contributed to stress and anxiety. Following therapist regularly. Past med trial: Buspirone [...] (minimal anxiety) Total Score 4 3 4 Palpitations: Metoprolol XL 12.5 mg daily - helps with palpitations she feels so far Patient reports the following medication side effects: dizziness but reports had been having this prior to starting metoprolol. BP Readings from Last 3 Encounters: 07/14/23 101/62 06/28/23 114/70 06/20/23 119/71 Pulse Readings from Last 3 Encounters: 07/14/23 64 06/28/23 81 06/20/23 67 GERD: Current medications include: Prilosec (omeprazole) 40 mg once daily. Patient reports no current symptoms. Patient feels that current regimen is effective. Hx Seizures: Patient taking levetiracetam 250 mg daily (plan to taper off now) and reports no concerns. Psoriasis: following dermatology. Using ointments occasionally. Triamcinolone 0.1% ointment as needed Tacrolimus 0.1% ointment as needed Ketoconazole shampoo twice weekly Fluocinonide 0.05% as needed on scalp Today's Vitals: There were no vitals taken for this visit. I spent 30 minutes with this patient today. All changes were made via collaborative practice agreement with José Miguel Pritchard PA-C. A copy of the visit note was provided to the patient's provider(s). A summary of these recommendations was sent via [employer]. Diana Desir, PharmD, BCACP Medication Therapy Management Provider, [facility] [phone] Telemedicine Visit Details Type of service: Telephone visit Start Time: 4:15 PM End Time: 4:47 PM Medication Therapy Recommendations Anxiety Current Medication: PARoxetine (PAXIL) 40 MG tablet (Discontinued) Rationale: Condition refractory to medication - Ineffective medication - Effectiveness Recommendation: Change Medication - venlafaxine 37.5 MG 24 hr tablet Status: Accepted per CPA IAC CATH LAB TECHNOLOGIST documented in this encounter Miscellaneous Notes * Addendum Note - José Miguel Pritchard PA-C - 07/27/2023 4:00 PM CSTAddended by: JOSÉ MIGUEL PRITCHARD on: 07/28/2023 07:49 AM Modules accepted: Orders IAC CATH LAB TECHNOLOGIST documented in this encounter Plan of Treatment Upcoming Encounters Date Type Department Care Team (Late st Contact Info) Description 10/25/2023 11:30 AM CDT Virtual Visit [facility] [address] [place] [phone] Nelly Mesa, RD [address] [place] [address] 11/03/2023 8:00 AM CDT Office Visit [address] [phone] Valery Veronica PA-C [address] [place] [address] 11/29/2023 8:00 AM CDT Office Visit [facility] [address] [place] [phone] José Miguel Pritchard PA-C [address] [place] [phone] 01/02/2024 8:00 AM CDT Office Visit [facility] [place] [address] [place] [phone] Lauren Claudio PA-C [address] [place] [address] Kelli Perez MD [address] [address]247[address] documented as of this encounter Visit Diagnoses Diagnosis Anxiety- Primary Anxiety state, unspecified Moderate major depression (H) Major depressive disorder, single episode, moderate Paroxysmal supraventricular tachycardia (H24) Paroxysmal supraventricular tachycardia Gastroesophageal reflux disease with esophagitis without hemorrhage Seizure (H) Other convulsions Psoriasis Other psoriasis documented in this encounter Additional Health Concerns Assessment Noted Time PHQ-9 Depression Total Score: 4 06/20/20 23 8:40 AM CARDIAC CATH LAB TECHNOLOGIST documented as of this encounter Care Teams Assembly Room Supervisor Relationship Specialty Start Date End Date José Miguel Pritchard PA-C [address] [place] [phone] PCP - General Family Medicine 05/04/23 Diana Desir, [facility] [address] [facility] [place] [address] Pharmacist Pharmacist 04/17/21 Rain Galaviz PA-C [address] [place] [address] [address] [place] [address] Physician Nuclear Plant Instrument Technician Dermatology 04/28/21 Tavia Wyatt MD [address] [place] [address] [address] [place] [address] Dermatology 07/14/21 Erica Farrell APRN SAND DRIER [address] [place], [place] 121225 Nurse Practitioner Cardiovascular Disease 09/09/21 Rich Barrett MD [address] 570925 Physician Ophthalmology 01/21/22 Neil Kent MD [address] [place], [place] [phone] Dermatology 02/24/22 Diana Desir, [facility] [address] [place], [place] 810366 Assigned MTM Pharmacist 04/07/22 Livan Sharif MD [address] [facility] [address] [place], [place] 8970[address] Cardiovascular Disease 05/14/22 Catherine Cm MD [address] [facility] [address] [place], [place] 872035 Cardiovascular Disease 07/21/22 Valery Veronica, PA-C [address] [place] [address]955 Physician Nuclear Plant Instrument Technician Dermatology 07/21/22 Brea Quinn APRN SAND DRIER [address] [place], [place] 851025 Nurse Practitioner Dermatology 09/21/22 Brea Quinn APRN SAND DRIER [address] [place] [address] 644162 Assigned Surgical Provider 10/09/22 [place] [address] [facility] 300 [place], [place] 6[address]47 Assigned Musculoskeletal Provider 10/09/22 Sydnie Martinez RN Personal Advocate & Liaison (PAL) Family Medicine 03/28/23 07/31/23 Alfonso Renteria MD [address] [facility] 200 [place] [address] Assigned Neuroscience Provider 04/02/23 Radha Lomeli APRN SAND DRIER [address] [place] [address] Assigned Heart and Vascular Provider 05/28/23 Jelena David OD [address] [facility] [place] [address] MD Ophthalmology 06/15/23 José Miguel Pritchard, PA-C [address] [place] [phone] Assigned PCP 07/16/23 documented as of this encounter
--- OUTSIDE RECORDS SUMMARY | 2023-10-15 21:52 | XMS_ITS | Encounter Summary ---
Author Name Unknown Organization [place] Address [address] [place] [address] Care Team Providers Care Rn Palliative Care Name Role Phone DesirKendrickDiana T [facility] Unavailable Rain GalavizC Unavailable Tavia Wyatt MD Unavailable Unavailable Erica Farrell APRN MAMMALOGIST Unavailable Rich Barrett MD Unavailable Neil Kent MD Unavailable Diana Desir [facility] Unavailable [phone] Livan Sharif MD Unavailable Catherine Cm MD Unavailable + Valery Veronica-C Unavailable [phone] Brea Quinn APPAREL PATTERN MAKER MAMMALOGIST Unavailable Brea Quinn APPAREL PATTERN MAKER MAMMALOGIST Unavailable Jose Francisco Johnson MD Unavailable Sydnie Martinez RN Unavailable Unavailable Alfonso Renteria MD Unavailable + [phone] Esha Grimm PA-C Primary Care Provider Cheng Todd PA-C Unavailable Radha Lomeli APRN MAMMALOGIST Unavailable [phone] Jelena David OD Unavailable Pao Joseph RN Unavailable Unavailable Esha Grimm PA-C Unavailable Valery Veronica PA-C Unavailable Rey Tay MD Unavailable Rocky Zepeda DO Unavailable Philip Dumont MD Unavailable Encounter Details Date Type Department Care Team (Late st Contact Info) Description 07/06/2023 MyC Medical Advice [facility] [address] [place] [phone] Esha Grimm PA-C [id number] [place] [phone] Social History Tobacco Use Types Packs/Day [...] often do you attend chur ch or alevism services? 1 to 4 times per year 03/10/2023 Do you belong to any clubs o r organizations such as protestant groups, unions, fraternal or athletic groups, [...] Answer Date Recorded PHQ-2 Score 0 06/20/2023 [facility] - Occupational Stress Questionnaire Answer Date Recorded [...] exercise at this level? 30 min 03/10/2023 [place] Depression Scale Answer Date Recorded [place] Depression Score 5 01/14/2021 Last EPDS Self [...] Description 10/25/2023 11:30 AM CDT Virtual Visit [facility] [address] [place] [phone] Nelly Mesa, RD [address] [place] [address] 11/03/2023 8:00 AM CDT Office Visit [address] [phone] Valery Veronica PA-C [address] [place] [address] 11/29/2023 8:00 AM CDT Office Visit [facility] [address] [place] [phone] Esha Grimm PA-C [address] [place] [address] 01/02/2024 8:00 AM CDT Office Visit [facility] [address] [place] [phone] Lauren Claudio PA-C [address] [place] [address] Kelli Perez MD [address] [place] [address] documented as of this encounter Visit Diagnoses Not on filedocumented in this encounter Additional Health Concerns Assessment Noted Time PHQ-9 Depression Total Score: 4 06/20/20 23 8:40 AM DESIGN PRINTING MACHINE 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 [address] [place] [address] Pharmacist Pharmacist 04/17/21 Rain Galaviz PA-C [address] [place] [address] [address] [place] [address] Physician Government Program Manager Dermatology 04/28/21 Tavia Wyatt MD [address] [place] [address] [address] [place] [address] Dermatology 07/14/21 Erica Farrell APRN MAMMALOGIST [address] [facility] [address] [place] 15[address]15 Nurse Practitioner Cardiovascular Disease 09/09/21 Rich Barrett MD 516 [facility] 9[address] [place], [place] 834935 Physician Ophthalmology 01/21/22 Neil Kent MD 500 [place], [place] 865495 Dermatology 02/24/22 Diana Desir, [facility] 30[address] [place], [place] 643166 Assigned MTM Pharmacist 04/07/22 Livan Sharif MD [address] [facility] [address] [place] 967105 Cardiovascular Disease 05/14/22 Catherine Cm MD [address] [place] 230465 Cardiovascular Disease 07/21/22 Valery Veronica, PA-C 909 [place], [place] 843155 Physician Government Program Manager Dermatology 07/21/22 Brea Quinn APRN MAMMALOGIST 500 [place], [place] 793295 Nurse Practitioner Dermatology 09/21/22 Brea Quinn APRN MAMMALOGIST 6401 [place], [place] 862212 Assigned Surgical Provider 10/09/22 [place] [address] [place] [address] Assigned Musculoskeletal Provider 10/09/22 Sydnie Martinez RN Personal Advocate & Liaison (PAL) Family Medicine 03/28/23 07/31/23 Alfonso Renteria MD [address] [facility] [address] [place] [address] Assigned Neuroscience Provider 04/02/23 Cheng Todd PA-C [address] [place] [address] Assigned PCP 04/30/23 07/15/23 Radha Lomeli APRN MAMMALOGIST 6[address] [facility] [address] [place] [address] Assigned Heart and Vascular Provider 05/28/23 Jelena David OD [facility] [facility] [place] [address] Ophthalmology 06/15/23 Pao Joseph RN Personal Advocate & Liaison (PAL) Nurse 08/01/23 Esha Grimm PA-C [address] [place] [address] Assigned PCP 07/16/23 Valery Veronica PA-C [address] [place] [address] 747215 Physician Government Program Manager Dermatology 09/19/23 Rey Tay MD [address] [place] [address] 803595 Gastroenterology 09/20/23 Rocky eZpeda DO [address] [place] [address] 948836 Physician Gastroenterology 09/20/23 Philip Dumont MD [address] [place] [address] Physician Ophthalmology 09/22/23 documented as of this encounter
--- OUTSIDE RECORDS SUMMARY | 2023-10-15 21:52 | XMS_ITS | Encounter Summary ---
Author Name Unknown Organization [place] Address [address] [place] [address] Care Team Providers Care Count Team Member Name Role Phone DesirKendrickDiana T [facility] Unavailable Rain GalavizC Unavailable Tavia Wyatt MD Unavailable Unavailable Erica Farrell APRN EDUCATIONAL GUIDANCE COUNSELOR Unavailable Rich Barrett MD Unavailable Neil Kent MD Unavailable Diana Desir [facility] Unavailable Livan Sharif MD Unavailable Catherine Cm MD Unavailable + Valery Veronica-C Unavailable [phone] Brea Quinn ONLINE PROGRAM COORDINATOR EDUCATIONAL GUIDANCE COUNSELOR Unavailable Brea Quinn ONLINE PROGRAM COORDINATOR EDUCATIONAL GUIDANCE COUNSELOR Unavailable [phone] Jose Francisco Johnson MD Unavailable Sydnie Martinez RN Unavailable Unavailable Alfonso Renteria MD Unavailable + [phone] Esha Grimm PA-C Primary Care Provider [phone] Radha Lomeli ONLINE PROGRAM COORDINATOR EDUCATIONAL GUIDANCE COUNSELOR Unavailable [phone] Jelena David OD Unavailable Pao Joseph RN Unavailable Unavailable Esha GrimmC Unavailable [phone] Valery Veronica PA-C Unavailable Rey Tay MD Unavailable Rocky Zepeda DO Unavailable Philip Dumont MD Unavailable [phone] Encounter Details Date Type Department Care Team (Late st Contact Info) Description 07/27/2023 MyC Medical Advice [address] [phone] Diana Desir, [facility] [address]33 [place] [address] Social History Tobacco Use Types [...] How often do you attend chur or judaism services? 1 to 4 times per year [...] Recorded PHQ-2 Score 0 06/20/2023 [facility] - Occupational Stress Questionnaire Answer [...] exercise at this level? 30 min 03/10/2023 [place] Depression Scale Answer Date Recorded [place] Depression Score 5 01/14/2021 Last EPDS Self [...] 10/25/2023 11:30 AM CDT Virtual Visit [facility] [address] [phone] Nelly Mesa, RD [address] [place] [address] 11/03/2023 8:00 AM CDT Office Visit [facility] [address] [place] [phone] Valery Veronica PA-C [address] [place] [address] 11/29/2023 8:00 AM CDT Office Visit [facility] [address] [place] [phone] Esha Grimm PA-C [address] [place] [address] 01/02/2024 8:00 AM CDT Office Visit [facility] [place] [address] [place] [phone] Lauren Claudio PA-C [address] [place], [place] [phone] Kelli Perez MD [address] [place], [place] 040754 documented as of this encounter Visit Diagnoses Not on filedocumented in this encounter Additional Health Concerns Assessment Noted Time PHQ-9 Depression Total Score: 4 06/20/20 23 8:40 AM 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 documented as of this encounter Care Teams Count Team Member Relationship Specialty Start Date End Date Esha Grimm PA-C [address] [place] [phone] PCP - General Family Medicine 05/04/23 Diana Desir, [facility] [address] [place] [address] Pharmacist Pharmacist 04/17/21 aRin Galaviz PA-C [address] [place] [address] [address] [place] [address] Physician Commercial Diver Dermatology 04/28/21 Tavia Wyatt MD [address] [place] [address] [address] [place] [address] Dermatology 07/14/21 Erica Farrell APRN EDUCATIONAL GUIDANCE COUNSELOR [address] [facility] [address] [place] [address] Nurse Practitioner Cardiovascular Disease 09/09/21 Rich Barrett MD 516 [facility] [address] [place], [place] [address] Physician Ophthalmology 01/21/22 Neil Kent MD 500 [place] [address] Dermatology 02/24/22 Diana Desir, [facility] 3033 [place] [address] Assigned [place] Pharmacist 04/07/22 Livan Sharif MD [address] 400[address] Cardiovascular Disease 05/14/22 Catherine Cm MD [address] 299765 Cardiovascular Disease 07/21/22 Valery Veronica, PA-C 909 [place] [address] Physician Commercial Diver Dermatology 07/21/22 Brea Quinn APRN EDUCATIONAL GUIDANCE COUNSELOR 500 [place] [address] Nurse Practitioner Dermatology 09/21/22 Brea Quinn APRN EDUCATIONAL GUIDANCE COUNSELOR [address] [place] [address] Assigned Surgical Provider 10/09/22 [place] [address] [place] [address] [address] Assigned Musculoskeletal Provider 10/09/22 Sydnie Martinez RN Personal Advocate & Liaison (PAL) Family Medicine 03/28/23 07/31/23 Alfonso Renteria MD [address] [place] [address] Assigned Neuroscience Provider 04/02/23 Armani Radha ARLENE Stovall EDUCATIONAL GUIDANCE COUNSELOR [address] [place] 254735 Assigned Heart and Vascular Provider 05/28/23 Jelena David OD [address] [facility] [place] [address] MD Ophthalmology 06/15/23 Pao Joseph, VJ Personal Advocate & Liaison (PAL) Nurse 08/01/23 Esha Grimm PA-C [address] [place] [phone] Assigned PCP 07/16/23 Valery Veronica PA-C [address] [place], [place] 125405 Physician Commercial Diver Dermatology 09/19/23 Rey Tay MD [address] [place] [address] Gastroenterology 09/20/23 Rocky Zepeda DO [address] [place] [address] 512525 Physician Gastroenterology 09/20/23 Philip Dumont MD [address] [place] [address] Physician Ophthalmology 09/22/23 documented as of this encounter
--- OUTSIDE RECORDS SUMMARY | 2023-10-15 21:52 | XMS_ITS | Encounter Summary ---
Author Name Unknown Organization [facility] Address [address] [place] [address] Care Team Providers Care Accounting Software Specialist Name Role Phone DesirKendrickDiana T [facility] Unavailable Rain GalavizC Unavailable Tavia Wyatt MD Unavailable Unavailable Erica Farrell APRN PREVENTIVE MEDICINE SPECIALIST Unavailable Rich Barrett MD Unavailable Neil Kent MD Unavailable Diana Desir [facility] Unavailable Livan Sharif MD Unavailable Catherine Cm MD Unavailable + Valery Veronica-C Unavailable [phone] Brea Quinn PARTS INSPECTOR PREVENTIVE MEDICINE SPECIALIST Unavailable Brea Quinn PARTS INSPECTOR PREVENTIVE MEDICINE SPECIALIST Unavailable Jose Francisco Johnson MD Unavailable Sydnie Martinez RN Unavailable Unavailable Alfonso Renteria MD Unavailable + [phone] Esha Grimm PA-C Primary Care Provider [phone] Cheng Todd PA-C Unavailable Radha Lomeli APRN PREVENTIVE MEDICINE SPECIALIST Unavailable [phone] Jelena David OD Unavailable [phone] Pao Joseph RN Unavailable Unavailable Esha Grimm PA-C Unavailable Valery Veronica PA-C Unavailable Rey Tay MD Unavailable Rocky Zepeda DO Unavailable Philip Dumont MD Unavailable Reason for Visit * Reason Onset Date Comments Appointment 06/17/2023 Encounter Details Date Type Department Care Team (Late st Contact Info) Description 06/17/2023 Telephone [facility] [id number] [place] [address] Esha Grimm PA-C [id number] [place] [address] Appointment Social History Tobacco Use Types Packs/Day Years [...] any clubs o r organizations such as episcopal groups, unions, fraternal or athletic groups, [...] Answer Date Recorded PHQ-2 Score 0 06/20/2023 [facility] - Occupational Stress Questionnaire Answer Date [...] exercise at this level? 30 min 03/10/2023 [place] Depression Scale Answer Date Recorded [place] Depression Score 5 01/14/2021 Last EPDS Self [...] Miscellaneous Notes * Telephone Encounter - Lulu Day - 06/17/2023 7:19 AM CST [facility] doesn't have anything, we are down providers and they are all full today Lulu Day/ Fire Patroller ING AND QUALITY TECHNICIAN * Telephone Encounter - Rosio Eller - 06/17/2023 7:13 AM CST Reason for Call: Appointment Request Patient requesting this type of appt: follow-up breast pain Requested provider: any Reason patient unable to be scheduled: Not within requested timeframe When does patient want to be seen/preferred time: today or Tuesday Comments: patient wondering if she could be worked in [facility] Could we send this information to you in [employer] or would you prefer to receive a phone call?: Patient would prefer a phone call Okay to leave a detailed message?: Yes at Home number on file [phone] (home) Call taken on 06/17/2023 at 7:13 AM by Rosio Eller ING AND QUALITY TECHNICIAN documented in this encounter Plan of Treatment Upcoming Encounters Date Type Department Care Team (Late st Contact Info) Description 10/25/2023 11:30 AM CDT Virtual Visit [facility] Gastroenterology [address] 4th [place] [phone] [address], [address] [place] [address] 11/03/2023 8:00 AM CDT Office Visit [address] [phone] Valery Veronica PA-C [address] [place] [address] 11/29/2023 8:00 AM CDT Office Visit [facility] [address] [place] [phone] Esha Grimm PA-C [address] [place] [address] 01/02/2024 8:00 AM CDT Office Visit [facility] [address] [place] [phone] Lauren Claudio PA-C [address] [place], [place] [phone] Kelli Perez MD [address] [address] documented as of this encounter Visit Diagnoses Not on filedocumented in this encounter Additional Health Concerns Assessment Noted Time PHQ-9 Depression Total Score: 6 05/16/20 23 9:29 AM BILLING AND QUALITY TECHNICIAN documented as of this encounter Care Teams Accounting Software Specialist Relationship Specialty Start Date End Date Esha Grimm PA-C [id number] [place] [phone] PCP - General Family Medicine 05/04/23 Diana Desir, [facility] [address] [place] [address] Pharmacist Pharmacist 04/17/21 Rain Galaviz PA-C [address] [place] [address] [address] [place] [address] Physician Piccoloist Dermatology 04/28/21 Tavia Wyatt MD [address] [place] [address] [place] [address] Dermatology 07/14/21 Erica Farrell APRN PREVENTIVE MEDICINE SPECIALIST [address] [place] 809245 Nurse Practitioner Cardiovascular Disease 09/09/21 Rich Barrett MD 516 [facility] 9A [place], [place] [address] Physician Ophthalmology 01/21/22 Neil Kent MD 500 [place], [place] 9[address]115 Dermatology 02/24/22 Diana Desir, [facility] [address] [place] [address] Assigned MTM Pharmacist 04/07/22 Livan Sharif MD [address] [place] [address] Cardiovascular Disease 05/14/22 Catherine Cm MD [address] [facility] [address] [place] [address] Cardiovascular Disease 07/21/22 Valery Veronica PA-C 909 [place] [address] Physician Piccoloist Dermatology 07/21/22 Brea Quinn APRN PREVENTIVE MEDICINE SPECIALIST 500 [place] [address] Nurse Practitioner Dermatology 09/21/22 Brea Quinn APRN PREVENTIVE MEDICINE SPECIALIST 6401 [place] [address] Assigned Surgical Provider 10/09/22 [place] [address] [address] [facility] 300 [place] [address] Assigned Musculoskeletal Provider 10/09/22 Sydnie Martinez RN Personal Advocate & Liaison (PAL) Family Medicine 03/28/23 07/31/23 Alfonso Renteria MD 5775 [facility] 200 [place], [place] 568686 Assigned Neuroscience Provider 04/02/23 Cheng Todd PA-C [address] [place], [place] [phone] Assigned PCP 04/30/23 07/15/23 Radha Lomeli APRN PREVENTIVE MEDICINE SPECIALIST [address] [place] [address] Assigned Heart and Vascular Provider 05/28/23 Jelena David OD [address] [facility] [place] [address] Ophthalmology 06/15/23 Pao Joseph, RN Personal Advocate & Liaison (PAL) Nurse 08/01/23 Esha Grimm PA-C [address] [place] [address] Assigned PCP 07/16/23 Valery Veronica PA-C 909 [place] [address] Physician Piccoloist Dermatology 09/19/23 Rey Tay MD [address] [place] [address] Gastroenterology 09/20/23 Rocky Zepeda DO [address] [place] [address] 442455 Physician Gastroenterology 09/20/23 Philip Dumont MD [address] [place] [address] 903315 Physician Ophthalmology 09/22/23 documented as of this encounter
--- OUTSIDE RECORDS SUMMARY | 2023-10-15 21:52 | XMS_ITS | Encounter Summary ---
Author Name Unknown Organization [facility] Address [address] [place] [address] Care Team Providers Care Global Vp Creative + Content Marketing Name Role Phone DesirKendrickDiana T [facility] Unavailable Rain GalavizC Unavailable Tavia Wyatt MD Unavailable Unavailable Erica Farrell APRN RETAIL CLIENT MANAGER Unavailable Rich Barrett MD Unavailable Neil Kent MD Unavailable Diana Desir [facility] Unavailable [phone] Livan Sharif MD Unavailable Catherine Cm MD Unavailable + Valery Veronica-C Unavailable [phone] Brea Quinn EQUIPMENT SERVICE TECHNICIAN RETAIL CLIENT MANAGER Unavailable [phone] Brea Quinn EQUIPMENT SERVICE TECHNICIAN RETAIL CLIENT MANAGER Unavailable [phone] Jose Francisco Johnson MD Unavailable Sydnie Martinez RN Unavailable Unavailable Alfonso Renteria MD Unavailable + [phone] Esha Grimm PA-C Primary Care Provider Radha Lomeli EQUIPMENT SERVICE TECHNICIAN RETAIL CLIENT MANAGER Unavailable Jelena David OD Unavailable Esha Grimm PA-C Unavailable [phone] Reason for Visit * Diagnostic Imaging Ultrasound (Routine) - Pending Review Specialty Diagnoses / Procedures Referred By Contac t Referred To Contact Radiology. Diagnoses Abdominal discomfort, bilateral lower quadrant Procedures US Pelvic Complete with Transvaginal Esha Grimm PA-C [address] [place] [address] Referral ID Status Reason Start Date Expiration Date V isits Requested Visits Authorized [id number] Pending Review 07/14/2023 07/13/2024 1 1 Encounter Details Date Type Department Care Team (Latest Contact Info) Description 07/21/2023 9:40 AM TRAM OPERATOR Ancillary Procedure [address] [address] Esha Grimm PA-C [address] [place] [address] Abdominal discomfort, bilateral lower quadrant Social History [...] often do you attend chur ch or anglican services? 1 to 4 times per year 03/10/2023 Do you belong to any clubs o r organizations such as christian groups, unions, fraternal or athletic groups, [...] Answer Date Recorded PHQ-2 Score 0 06/20/2023 [facility] - Occupational Stress Questionnaire [...] exercise at this level? 30 min 03/10/2023 [place] Depression Scale Answer Date Recorded [place] Depression Score 5 01/14/2021 Last EPDS Self [...] Description 10/25/2023 11:30 AM CDT Virtual Visit [facility] [address] [phone] Nelly Mesa, RD [address] [place] [address] 11/03/2023 8:00 AM CDT Office Visit [address] [phone] Valery Veronica PA-C [address] [place] [address] 11/29/2023 8:00 AM CDT Office Visit [address] [phone] Esha Grimm PA-C [address] [place] [phone] 01/02/2024 8:00 AM CDT Office Visit [facility] [address] [place] [phone] Lauren Claudio, [address] [address] [place] [address] Kelli Perez MD [address] [address] documented as of this encounter Procedures Procedure Name Priority Date/Time Associated Diagnosis Comments US PELVIC TRANSABDOMINAL AND TRANSVAGINAL Routine 07/21/2023 9:57 AM TRAM OPERATOR Abdominal discomfort, bilateral lower quadrant documented in this encounter Results * US Pelvic Complete with Transvaginal (07/21/2023 9:57 AM TRAM OPERATOR) Anatomical Region Laterality Modality Abdomen/Pelvis Ultrasound Narrative 07/21/2023 12:[address] [facility] ULTRASOUND - PELVIC FOOD ADVISER- Transabdominal and Transvaginal Referring MD: Esha Grimm [...] Gloria Espinal, DO ?? Obstetrics and Gynecology [facility] Esha Grimm PA-C IMG US ORDERABLES documented in this encounter Visit Diagnoses Diagnosis Abdominal discomfort, bilateral lower quadrant Abdominal pain, other specified site documented in this encounter Additional Health Concerns Assessment Noted Time PHQ-9 Depression Total Score: 4 06/20/20 23 8:40 AM TRAM OPERATOR documented as of this encounter Care Teams Global Vp Creative + Content Marketing Relationship Specialty Start Date End Date Esha Grimm PA-C [address] [place] [phone] PCP - General Family Medicine 05/04/23 Diana Desir, [facility] [address] [facility] [place], [place] [address] Pharmacist Pharmacist 04/17/21 Rain Galaviz PA-C [address] [place] [address] [place] [address] Physician Personal Banking Representative Dermatology 04/28/21 Tavia Wyatt MD [address] [place] [address] [place] [address] Dermatology 07/14/21 Erica Farrell APRN RETAIL CLIENT MANAGER [address] [facility] [address] [place] [address] Nurse Practitioner Cardiovascular Disease 09/09/21 Rich Barrett MD 516 [facility] [address] [place], [place] [address] Physician Ophthalmology 01/21/22 Neil Kent MD 500 [place], [place] 85[address] Dermatology 02/24/22 Diana Desir, [facility] [address] [place], [place] [address]26 Assigned [place] Pharmacist 04/07/22 Livan Sharif MD [address], [facility] [address] [place], [place] [address] Cardiovascular Disease 05/14/22 Catherine Cm MD [address] [facility] [place], [place] 3765[address] Cardiovascular Disease 07/21/22 Valery Veronica, PA-C 909 [place], [place] 640545 Physician Personal Banking Representative Dermatology 07/21/22 Brea Quinn APRN RETAIL CLIENT MANAGER 500 [place] [address] Nurse Practitioner Dermatology 09/21/22 Brea Quinn APRN RETAIL CLIENT MANAGER 6401 [place] [address] Assigned Surgical Provider 10/09/22 [place] [address] [place] [address] Assigned Musculoskeletal Provider 10/09/22 Sydnie Martinez RN Personal Advocate & Liaison (PAL) Family Medicine 03/28/23 07/31/23 Alfonso Renteria MD [address] [facility] 200 [place], [place] [address]116 Assigned Neuroscience Provider 04/02/23 Radha Lomeli APRN RETAIL CLIENT MANAGER [address] [place] 240535 Assigned Heart and Vascular Provider 05/28/23 Jelena David OD [address] [facility] [place] [id number] Ophthalmology 06/15/23 Esha Grimm, PAUcheC [address] [place] [phone] Assigned PCP 07/16/23 documented as of this encounter
[2023-10-15 21:53] LABS: Basophils Absolute Auto 0.02 K/uL (0.00-0.30); Basophils Percent Auto 0.2 % (0.0-3.0); Eosinophils Absolute Auto 0.35 K/uL (0.00-0.50); Hematocrit 40.6 % (33.0-51.0); Hemoglobin* 12.7 gm/dL (12.0-16.0); Immature Granulocytes Abs Auto 0.01 K/uL (0.00-0.30); Immature Granulocytes Pct Auto 0.1 %; Lymphocytes Absolute Auto 2.17 K/uL (0.90-2.90); Lymphocytes Percent Auto 24.8 % (20-44); Mean Corpuscular HGB Conc 31 gm/dL (32-36); Mean Corpuscular Hemoglobin 26 pg (26-34); Mean Corpuscular Volume 84 fL (80-100); Monocytes Percent Auto 6.5 % (0.0-11.0); Neutrophils Absolute Auto 5.64 K/uL (1.7-7.0); Neutrophils Percent Auto 64.4 % (42.0-72.0); Platelet Count* 242 K/uL (140-440); Red Blood Count 4.84 m/uL (4.00-5.20); White Blood Count* 8.76 K/uL (4.50-11.00)
--- OUTSIDE RECORDS SUMMARY | 2023-10-15 21:53 | XMS_ITS | Encounter Summary ---
Author Name Unknown Organization [facility] Address [address] [place] [address] Care Team Providers Care Device Test Engineer Name Role Phone Marija Edgar APRN S[employer]VER [employer] ASSEMBLER Primary Care Provider Marija Emery APRN, CNP Unavailable Unavail able Diana Desir [facility] Unavailable [phone] Rain Galaviz PA-C Unavailable [phone] Tavia Wyatt MD Unavailable Unavailable Erica Farrell APRN SILVER HOLLOWARE ASSEMBLER Unavailable Rich Barrett MD Unavailable [phone] Neil Kent MD Unavailable Diana Desir [facility] Unavailable [phone] Livan Sharif MD Unavailable Catherine Cm MD Unavailable + Valery Veronica PA-C Unavailable [phone] Brea Quinn APRN [employer] ASSEMBLER Unavailable [phone] Brea Quinn APRN S[employer]LLOWARE ASSEMBLER Unavailable [phone] Jose Francisco Johnson MD Unavailable Catherine Cm MD Unavailable + Sydnie Martinez RN Unavailable Unavailable Alfonso Renteria MD Unavailable [phone] Esha GrimmC Primary Care Provider [phone] Cheng ToddC Unavailable Radha Lomeli APRN SILVER HOLLOWARE ASSEMBLER Unavailable Jelena David OD Unavailable Pao Joseph RN Unavailable Unavailable Esha Grimm PA-C Unavailable [phone] Valery VeronicaC Unavailable Rey Tay MD Unavailable Rocky Zepeda DO Unavailable Philip Dumont MD Unavailable [phone] Encounter Details Date Type Department Care Team (Late st Contact Info) Description 04/12/2023 [facility] Medical Advice [facility] [address] [place] [address] [address] [place] [address] Livan Sharif MD [address] [facility] [address] [place] [address] Social History Tobacco Use Types Packs/Day [...] week 03/10/2023 How often do you attend [facility] or methodist services? 1 to 4 times per year 03/10/2023 Do you belong to any clubs o r organizations such as oriental orthodox groups, unions, [employer] or athletic groups, or school groups? No [...] more drinks on one occasion? Never 03/10/2023 Overall Financial Resource Strain (CARDIA) Answe r Date Recorded How hard is it for you to pa y for the very basics like food, housing, medical care, and heating? Not hard at all 03/10/2023 PHQ-2 Answer Date Recorded PHQ-2 Score 0 03/10/2023 [facility] [...] exercise at this level? 30 min 03/10/2023 Hunger Vital Sign Answer Date Recorded Within the past 12 months, y ou worried that your food would run out before you got the money to buy more. Never true 08/31/20 23 Within the past 12 months, t he food you bought just didn't last and you didn't have money to get more. Never true 03/10/2023 PRAPARE - Transportation Answer Date Re corded In the past 12 months, has l ack of transportation kept you from medical appointments or from getting medications? No 02/10 In the past 12 months, has l ack of transportation kept you from meetings, work, or from getting things needed for daily living? No 03/10/2023 Housing Stability Vital Sign Answer Chip e Recorded In the last 12 months, was t here a time when you were not able to pay the mortgage or rent on time? No 03/10/2023 In the last 12 months, how many places have you lived? 1 03/10/2023 In the last 12 months, was t here a time when you did not have a steady place to sleep or slept in a long-term (including now)? No 03/10/2023 Lead Depression Scale Answer Date Recorded Lead Depression Score 5 01/14/2021 Last EPDS Self Harm Result Not on file 01/14 Adolescent Education Answer Date Record ed Getting School Help Needed Not on file 04/04 Education Answer Date Recorded What is the [...] suspected to have Coronavirus/COVID-19? No / Unsure 04/12/2023 8:46 PM CDT documented as of this encounter Miscellaneous Notes * Telephone Encounter - Natali Serrano RN - 04/12/2023 11:02 AM CDT My chart message from patient: Franki, I am just reaching out because I had a rash from having to change my 30 day monitor from the one patch a few times because it wasn???t working and than they eventually sent me out a whole new set. I???m now using the same monitor system, but I changed over to the second option they give you of the three leads instead of just the one patch because of my skin irritation. My black one should be up higher aligned with the white one, but I decided to not put it on top of my rash again since it is looking so irritated. It formed small blisters. Is it okay that I put the patch down a little more since it???s still in the general area for monitoring until my rash calms down? I have attached a couple pictures. Primary care told me to reach out to cardiology and ask. Thank you. Kim Swann, We are in [employer] [place], but asked a tech here to check the photo. He said the spot you chose is OK but he thinks we should have the [employer] techs check in with you as you may need to have some extra prep gelif you have have issues with the pads. We are reaching out to that [employer] team to let them know you are having some issues. Team 2 in [employer] [place] with Dr. Sharif [phone] documented in this encounter Plan of Treatment Upcoming Encounters Date Type Department Care Team (Late st Contact Info) Description 10/25/2023 11:30 AM CDT Virtual Visit [facility] [address] 4th [place] [phone] Nelly Mesa, RD [address] [place] [address] 11/03/2023 8:00 AM CDT Office Visit [address] [address] Valery Veronica, PAUcheC [address] [place] [address] 11/29/2023 8:00 AM CDT Office Visit [address] [phone] Esha Grimm PA-C [address] [place] [address] 01/02/2024 8:00 AM CDT Office Visit [facility] [address] [place] [phone] Lauren Claudio PA-C [address] [place], [place] [phone] Kelli Perez MD [address] [facility] 106 [place], [place] [address] documented as of this encounter Visit Diagnoses Not on filedocumented in this encounter Additional Health Concerns Assessment Noted Time PHQ-9 Depression Total Score: 5 03/10/20 23 6:49 AM CDT documented as of this encounter Care Teams Device Test Engineer Relationship Specialty Start Date End Date Marija Edgar APRN SILVER HOLLOWARE ASSEMBLER PCP - General Nurse Practitioner 04/30/20 04/14/23 Esha Grimm PA-C [address] [place] [address] PCP - General Family Medicine 05/04/23 Marija Edgar APRN SILVER HOLLOWARE ASSEMBLER Assigned PCP 06/08/20 04/29/23 Diana Desir, [facility] [address] [facility] [place] [place] [address] Pharmacist Pharmacist 04/17/21 Rain Galaviz PA-C [address] [place] [address] [address] [place] [id number] Physician Commercial Sheet Metal Foreman Dermatology 04/28/21 Tavia Wyatt MD [address] [place] [address] DR RA[address] [facility] [place] [address] Dermatology 07/14/21 Erica Farrell APRN SILVER HOLLOWARE ASSEMBLER [address] [place], [place] [address] Nurse Practitioner Cardiovascular Disease 09/09/21 Rich Barrett MD 516 [facility] 9A [place] [address] Physician Ophthalmology 01/21/22 Neil Kent MD 500 [place] [address] Dermatology 02/24/22 [facility] 3033 [place], [place] 439146 Assigned MTM Pharmacist 04/07/22 Livan Sharif MD [address] [place] [address] Cardiovascular Disease 05/14/22 Catherine Cm MD [address] [place] [address] Cardiovascular Disease 07/21/22 Valery Veronica, PA-C [address] [place] [address] 816245 Physician Commercial Sheet Metal Foreman Dermatology 07/21/22 Brea Quinn APRN SILVER HOLLOWARE ASSEMBLER 500 [place] [address] Nurse Practitioner Dermatology 09/21/22 Brea Quinn APRN SILVER HOLLOWARE ASSEMBLER 6401 [facility] [place] [address] Assigned Surgical Provider 10/09/22 [place] [address] [place] [address] Assigned Musculoskeletal Provider 10/09/22 Catherine Cm MD [address] [facility] [address] [place] [address] Assigned Heart and Vascular Provider 11/13/22 05/27/23 Sydnie Martinez RN Personal Advocate & Liaison (PAL) Family Medicine 03/28/23 07/31/23 Alfonso Renteria MD [address] [facility] 200 [place] [address] Assigned Neuroscience Provider 04/02/23 Cheng Todd PA-C [address] [place], [place] [phone] Assigned PCP 04/30/23 07/15/23 Radha Lomeli APRN SILVER HOLLOWARE ASSEMBLER [address] [facility] [address] [place] [address] Assigned Heart and Vascular Provider 05/28/23 Jelena David OD 3[address] [facility] [place] [id number] MD Ophthalmology 06/15/23 Pao Joseph, RN Personal Advocate & Liaison (PAL) Nurse 08/01/23 Esha Grimm PA-C [address] [place] [phone] Assigned PCP 07/16/23 Valery Veronica PA-C [address] [place] [address] 224325 Physician Commercial Sheet Metal Foreman Dermatology 09/19/23 Rey Tay MD [address] [place] [address] [phone] Gastroenterology 09/20/23 Rocky Zepeda DO [address] [place] [address] 853425 Physician Gastroenterology 09/20/23 Philip Dumont MD [address] [place] [address] 031175 Physician Ophthalmology 09/22/23 documented as of this encounter
--- OUTSIDE RECORDS SUMMARY | 2023-10-15 21:53 | XMS_ITS | Encounter Summary ---
Author Name Unknown Organization [place] [facility] Address [address] [place] [address] Care Team Providers Care Sales Branch Manager Name Role Phone Lita Oseguera Unavailable Unavailable Marija Edgar APRN CONSTRUCTION SALES MANAGER Primary Care Provider U mandaailMarija Callaway APRN, CNP Unavailable Unavail able Keisha Dotson MD Unavailable [phone] Diana Desir [facility] Unavailable [phone] Rain Galaviz PA-C Unavailable [phone] Tavia Wyatt MD Unavailable Unavailable Erica Farrell APRN CONSTRUCTION SALES MANAGER Unavailable Rich Barrett MD Unavailable [phone] Neil Kent MD Unavailable Diana Desir [facility] Unavailable [phone] Livan Sharif MD Unavailable Catherine Cm MD Unavailable + Valery Veronica PA-C Unavailable [phone] Brea Quinn APRN CONSTRUCTION SALES MANAGER Unavailable [phone] Brea Quinn APRN CONSTRUCTION SALES MANAGER Unavailable Jose Francisco Johnson MD Unavailable Catherine Cm MD Unavailable + Sydnie Martinez RN Unavailable Unavailable Alfonso Renteria MD Unavailable [phone] Esha Grimm PA-C Primary Care Provider Cheng Todd PA-C Unavailable Radha Lomeli APRN CONSTRUCTION SALES MANAGER Unavailable Jelena David OD Unavailable Pao Joseph RN Unavailable Unavailable Esha Grimm PA-C Unavailable [phone] Reason for Visit * Rehab Therapy Physical Therapy (Routine: Next available opening) - Closed Specialty Diagnoses / Procedures Referred By Contparviz t Referred To Contact Physical Therapy Diagnoses Acute left-sided low back pain with left-sided sciatica Neck pain on left side Lauren Claudio PA-C [address] [place] [address] [facility] [place] [address] [address] Referral ID Status Reason Start Date Expiration Date Visits Re quested Visits Authorized [id number] Closed 08/25/2022 03/24/2023 18 18 Encounter Details Date Type Department Care Team (Latest Contact Info) Description 03/02/2023 3:10 PM CDT Therapy Visit [facility] [place] [address] [place] [address] Anthony Mena, PT [address] [place] [address] Neck pain (Primary Dx); Low back pain, unspecified back pain laterality, unspecified chronicity, unspecified whether sciatica present Social History Tobacco Use Types Packs/Day Years [...] week 03/10/2023 How often do you attend [facility] or gnosticism services? 1 to 4 times per year [...] Answer Date Recorded PHQ-2 Score 0 06/20/2023 [facility]ational Stress Questionnaire Answer [...] exercise at this level? 30 min 03/10/2023 Piru Depression Scale Answer Date Recorded Piru Depression Score 5 01/14/2021 Last EPDS Self [...] as of this encounter Progress Notes * Anthony Mena, PT - 03/04/2023 12:14 PM CDT PLAN Continue therapy per current plan of care. Beginning/End Dates of Progress Note Reporting Period: 01/19/23 to 03/02/2023 Referring Provider: Lauren Claudio 03/02/23 0500 Appointment Info Signing clinician's name / credentials Anthony Mena DPT Total/Authorized Visits 18 (WC) Visits Used 17 Medical Diagnosis Sacroiliac joint pain, Neck pain, Acute left-sided low back pain with left-sided sciatica PT Tx Diagnosis Neck and Low Back Pain Progress Note/Certification Onset of illness/injury or Date of Surgery 08/16/22 Progress Note Completed Date 01/19/23 Tongsman Tongsman Present No PT Goal 1 Goal Identifier LTG Goal Description Pt will be able to lift an item to counter height weaighing 50 lbs with pain no greater than 2/10 for safe care of infant/toddler;for grocery shopping;for meal preparation;for housework such as laundry, emptying garbage, use of repairer art objects;for yard work such as shoveling snow;to perform job duties at work Goal Progress able to lift up to 40 lbs [employer] Date 03/16/23 Subjective Report Subjective Report Pain was okay through the weekend no worse and no better. Tried heat and lidocanepatches and this decreased symptoms temporarily only. Sun night she woke up 6 times in the night due to pain and same mon and then tue was worse. (current neck pain 2/10, low back pain 5/10 and right side back pain 7/10) Objective Measures Objective Measures Objective Measure 1;Objective Measure 2;Objective Measure 3;Objective Measure 4 Objective Measure 1 Objective Measure Increased tone in R lumbar paraspinals casuing pain with L rotation Details Increased hypomobility in mid thoracic spine with tenderness over spinous proccess Objective Measure 2 Objective Measure ROM Details thoracic rotation R mod loss and L max loss with pain, lumbar rot L and R mod loss pain Objective Measure 3 Objective Measure Posture Details improved sititng posture Treatment Interventions (PT) Interventions Therapeutic Procedure/Exercise;Manual Therapy;Therapeutic Activity Therapeutic Procedure/Exercise Therapeutic Procedures: strength, endurance, ROM, flexibillity minutes (17468) 25 Therapeutic Procedures Ther Proc 10;Ther Proc 2 Ther Proc 1 Rowing Ther Proc 1 - Details nt Ther Proc 2 Bridge Ther Proc 2 - Details x10-20 GTB around legs Ther Proc 3 Abdominal 90/90 hold Ther Proc 3 - Details nt Ther Proc 4 standing chin tucks into ball on wall Ther Proc 4 - Details nt Ther Proc 10 supine lumbar roation stretch knees towards chest Ther Proc 10 - Details 3 x 15 PTRx Ther Proc 1 lying vertical and horizontal on towel roll for throacic spine PTRx Ther Proc 1 - Details 5 min PTRx Ther Proc 2 pull downs PTRx Ther Proc 2 - Details nt PTRx Ther Proc 3 foam roll vertical for upper back PTRx Ther Proc 3 - Details with snow angels 6 min PTRx Ther Proc 4 bridge feet on ball PTRx Ther Proc 4 - Details nt PTRx Ther Proc 5 Roll Ins Hooklying PTRx Ther Proc 5 - Details HEP PTRx Ther Proc 6 sidelying thoracic rotation less pain PTRx Ther Proc 6 - Details 2 x 10 PTRx Ther Proc 7 Upper Cervical Strengthening Extension PTRx Ther Proc 7 - Details HEP Skilled Intervention cued stretch to help with rotation Patient Response/Progress pain decreased after Therapeutic Activity Ther Act 1 worked on squatting and correct technique for getting to the ground and discussed importance of not trying to bend and twist at gabrielle same time Neuromuscular Re-education Neuromuscular Re-education Neuro Re-ed 2;Neuro Re-ed 3;Neuro Re-ed 4;Neuro Re-ed 5 Neuro Re-ed 1 side planks Neuro Re-ed 1 - Details NT Neuro Re-ed 2 side stpping with GTB out in front with hands Neuro Re-ed 2 - Details nt Neuro Re-ed 3 side stepping Neuro Re-ed 3 - Details HEP Neuro Re-ed 4 squat on BOSU Neuro Re-ed 4 - Details NT Neuro Re-ed 5 Pilates Neuro Re-ed 5 - Details quadruped push out 2 spring x10 cued to keep back flat abdominals activated; hip extension in standing 3 springs on R and 2 srpings on L x15; deadbug 2 springs x 15, rows kneeling 2 srpings x 10 MC and VC abdominals, seated rotations B x 10 PTRx Neuro Re-ed 1 Quadruped leg extension PTRx Neuro Re-ed 1 - Details nt Manual Therapy Manual Therapy: Mobilization, MFR, MLD, friction massage minutes (61287) 15 Manual Therapy 1 MFR to paraspinals with active trunk rotation Manual Therapy 1 - Details decreased pain and improved ROM Manual Therapy 2 prone throacic extractor loader and unloader grade 2 and 3 Skilled Intervention slightly better ROM after Education Learner/Method No Barriers to Learning;Pictures/Video Plan Home program Continue with HEP Plan for next session continue to progress core strength Total Session Time Timed Code Treatment Minutes 40 Total Treatment Time (sum of timed and untimed services) 40 documented in this encounter Plan of Treatment Upcoming Encounters Date Type Department Care Team (Late st Contact Info) Description 10/25/2023 11:30 AM CDT Virtual Visit [facility] [address] 4th [place] [phone] [address], [address] [place] [address] 11/03/2023 8:00 AM CDT Office Visit [address] [phone] Valery Veronica PA-C [address] [place] [address] 11/29/2023 8:00 AM CDT Office Visit [facility] [id number] [place] [address] Esha Grimm PA-C [address] [place] [address] 01/02/2024 8:00 AM CDT Office Visit [facility] [address] [place] [phone] Lauren Claudio PA-C [address] [place] [address] Kelli Perez MD [address] [place] [phone] documented as of this encounter Visit Diagnoses Diagnosis Neck pain- Primary Cervicalgia Low back pain, unspecified back pain laterality, unspecified chronicity, unspecified whether sciatica present documented in this encounter Additional Health Concerns Infection Onset Date Last Indicated Resolved Time Rule Out COVID-19 03/07/2023 03/07/2023 03/07/2023 1:20 PM CDT Assessment Noted Time PHQ-9 Depression Total Score: 5 10/11/19 8:58 AM CDT documented as of this encounter Care Teams Sales Branch Manager Relationship Specialty Start Date End Date Marija Edgar APRN CONSTRUCTION SALES MANAGER PCP - General Nurse Practitioner 04/30/20 04/14/23 Esha Grimm PA-C [address] [place] [phone] PCP - General Family Medicine 05/04/23 Lita Oseguera Personal Advocate & Liaison (PAL) 02/28/20 03/27/23 Marija Edgar APRN CONSTRUCTION SALES MANAGER Assigned PCP 06/08/20 04/29/23 Keisha Dotson MD [address] [place], [place] [address] Assigned Neuroscience Provider 06/04/20 04/01/23 Diana Desir, [facility] [address] [place] [address] Pharmacist Pharmacist 04/17/21 Rain Galaviz PA-C [address] [place] [address] [place]SON [address] Physician Invoice Clerk Dermatology 04/28/21 Tavia Wyatt MD [address] [place] [address] [place] [address] Dermatology 07/14/21 Erica Farrell APRN CONSTRUCTION SALES MANAGER [address] [place], [place] [address] Nurse Practitioner Cardiovascular Disease 09/09/21 Rich Barrett MD 516 [facility] [address] [place], [place] 60[address] Physician Ophthalmology 01/21/22 Neil Kent MD 500 [place], [place] 303935 Dermatology 02/24/22 Diana Desir, [facility] [address] [place], [place] 896[address] Assigned [facility] Pharmacist 04/07/22 Livan Sharif MD [address], [facility] [place], [place] [address] Cardiovascular Disease 05/14/22 Catherine Cm MD 6405 [facility] [address] [address] Cardiovascular Disease 07/21/22 Valery Veronica, PA-C [address] [place] [address] 899785 Physician Invoice Clerk Dermatology 07/21/22 Brea Quinn APRN CONSTRUCTION SALES MANAGER [address] [place], [place] [address] Nurse Practitioner Dermatology 09/21/22 Brea Quinn APRN CONSTRUCTION SALES MANAGER [address] [place] [address] [place] [address]85 [phone] Assigned Surgical Provider 10/09/22 [place] [address] [facility] [address] [place] [address] Assigned Musculoskeletal Provider 10/09/22 Catherine Cm MD [address] [facility] [address] [place] [address] Assigned Heart and Vascular Provider 11/13/22 05/27/23 Sydnie Mratinez RN Personal Advocate & Liaison (PAL) Family Medicine 03/28/23 07/31/23 Alfonso Renteria MD 5775 [facility] 200 [place] [address] Assigned Neuroscience Provider 04/02/23 Cheng Todd PA-C [address] [place], [place] [id number] Assigned PCP 04/30/23 07/15/23 Radha Lomeli APRN CONSTRUCTION SALES MANAGER [address] [place] [address] Assigned Heart and Vascular Provider 05/28/23 Jelena David OD [address] [facility] [place] [address] Ophthalmology 06/15/23 Pao Joseph, VJ Personal Advocate & Liaison (PAL) Nurse 08/01/23 Esha Grmim PAUcheC [address] [place] [phone] Assigned PCP 07/16/23 documented as of this encounter
--- OUTSIDE RECORDS SUMMARY | 2023-10-15 21:53 | XMS_ITS | Encounter Summary ---
Author Name Unknown Organization [facility] Address [address] [place] [address] Care Team Providers Care Traffic Rate Analyst Name Role Phone Marija Edgar APRN INTERACTIVE MEDIA SPECIALIST Primary Care Provider Marija Emery APRN, CNP Unavailable Unavail able Diana Desir [facility] Unavailable [phone] Rain Galaviz PA-C Unavailable [phone] Tavia Wyatt MD Unavailable Unavailable Erica Farrell APRN INTERACTIVE MEDIA SPECIALIST Unavailable Rich Barrett MD Unavailable [phone] Neil Kent MD Unavailable Diana Desir [facility] Unavailable [phone] Livan Sharif MD Unavailable Catherine Cm MD Unavailable + Valery Veronica PA-C Unavailable [phone] Brea Quinn APRN INTERACTIVE MEDIA SPECIALIST Unavailable [phone] Brea Quinn APRN INTERACTIVE MEDIA SPECIALIST Unavailable [phone] Jose Francisco Johnson MD Unavailable Catherine Cm MD Unavailable + Sydnie Martinez RN Unavailable Unavailable Alfonso Renteria MD Unavailable [phone] Esha Grimm PA-C Primary Care Provider [phone] Cheng Todd PA-C Unavailable [phone] Radha Lomeli APRN INTERACTIVE MEDIA SPECIALIST Unavailable Jelena David OD Unavailable Pao Joseph RN Unavailable Unavailable Esha Grimm PA-C Unavailable [phone] Valery Veronica PA-C Unavailable Rey Tay MD Unavailable Rocky Zepeda DO Unavailable Philip Dumont MD Unavailable Reason for Visit * Reason Onset Date Comments Forms 04/13/2023 DMV (LOC) Encounter Details Date Type Department Care Team (Late st Contact Info) Description 04/13/2023 Telephone [facility] Epilepsy Care [address] [facility] [address] [place] [address] Alfonso Renteria MD [address] [facility] [address] [place] [address] Forms (DMV (LOC)) Social History Tobacco Use Types Packs/Day Years [...] week 03/10/2023 How often do you attend [facility] or religion services? 1 to 4 times per year 03/10/2023 Do you belong to any clubs o r organizations such as congregation groups, unions, fraternal or athletic groups, [...] Answer Date Recorded PHQ-2 Score 0 03/10/2023 [facility] of Occupat ional Health - Occupational Stress [...] the money to buy more. Never true 03/10/20 23 Within the past 12 months, t [...] or slept in a jail (including now)? No 03/10/2023 [place] Depression Scale Answer Date Recorded [place] Depression Score 5 01/14/2021 Last EPDS Self [...] encounter Miscellaneous Notes * Telephone Encounter - Kaylie Atkinson - 04/21/2023 1:52 PM CDT DMV form mail and fax to DMV,copy mailed to patient and copy saved to 30 day folder * Telephone Encounter - Yfn Peck MA - 04/15/2023 12:58 PM CDT New DMV form received , awaiting provider review and signature. * Telephone Encounter - Magdalena Anne CMA - 04/15/2023 11:29 AM CDT Images from the original note were not included. Emailed the following to the patient: We received your faxed LOC form, however, you did not complete the ???Date of last episode of lost consciousness or voluntary control?? . We are unable to fill this out because [place] [employer] will not accept it. It needs to be in your hand writing. The last one filed was 12/2021 andit said over 3 years ago. Notes in chart said last seizure July 2018. If that helps or if you had a more recent seizure please put that date in. We will watch for your updated form. Our fax number [phone]. Thank you. * Telephone Encounter - Magdalena Anne CMA - 04/13/2023 3:20 PM CDT Received DMV (LOC) Form to be completed. Form saved to R drive, encounter routed. Magdalena Anne CMA documented in this encounter Plan of Treatment Upcoming Encounters Date Type Department Care Team (Late st Contact Info) Description 10/25/2023 11:30 AM CDT Virtual Visit [facility] [address] [address] [address], [address] [place], [place] [address] 11/03/2023 8:00 AM CDT Office Visit [facility] [address]30 [place] [phone] Valery Veronica PA-C [address]09 [place] [address] 11/29/2023 8:00 AM CDT Office Visit [facility] [address] [place] [phone] Esha Grimm PA-C [address] [place] [address] 01/02/2024 8:00 AM CDT Office Visit [facility] [address] [place] [phone] Lauren Claudio PA-C [address] [place], [place] [phone] Kelli Perez MD [address] 6[address] documented as of this encounter Visit Diagnoses Not on filedocumented in this encounter Additional Health Concerns Assessment Noted Time PHQ-9 Depression Total Score: 5 03/10/20 23 6:49 AM CDT documented as of this encounter Care Teams Traffic Rate Analyst Relationship Specialty Start Date End Date Marija Edgar APRN INTERACTIVE MEDIA SPECIALIST PCP - General Nurse Practitioner 04/30/20 04/14/23 Esha Grimm PA-C [address] [place] [address] PCP - General Family Medicine 05/04/23 Marija Edgar APRN INTERACTIVE MEDIA SPECIALIST Assigned PCP 06/08/20 04/29/23 Diana Desir, [facility] [address] [place] [address] Pharmacist Pharmacist 04/17/21 Rain Galaviz PA-C [address] [place] [address] [address] [place] [address] Physician Assistant Director Of Financial Aid Dermatology 04/28/21 Tavia Wyatt MD [address] [place] [address] [address] [place] [address] Dermatology 07/14/21 Erica Farrell APRN INTERACTIVE MEDIA SPECIALIST [address] [place] [address] Nurse Practitioner Cardiovascular Disease 09/09/21 Rich Barrett MD 516 [facility] 9A [place], [place] [address] Physician Ophthalmology 01/21/22 Neil Kent MD 500 [place] [address] Dermatology 02/24/22 Diana Desir, [facility] [address] [place] [address] Assigned MTM Pharmacist 04/07/22 Livan Sharif MD [address] [place] [id number] Cardiovascular Disease 05/14/22 Catherine Cm MD [address] [facility] [address] [place] [address] Cardiovascular Disease 07/21/22 Valery Veronica PA-C [address]09 [place] [address] Physician Assistant Director Of Financial Aid Dermatology 07/21/22 Brea Quinn APRN INTERACTIVE MEDIA SPECIALIST 500 [place] [address] Nurse Practitioner Dermatology 09/21/22 Brea Quinn APRN INTERACTIVE MEDIA SPECIALIST [address] [place] [address] Assigned Surgical Provider 10/09/22 [place] [address] [facility] 300 [place] [address] Assigned Musculoskeletal Provider 10/09/22 Catherine Cm MD [address] [facility] [address] [place] [address] Assigned Heart and Vascular Provider 11/13/22 05/27/23 Sydnie Martinez RN Personal Advocate & Liaison (PAL) Family Medicine 03/28/23 07/31/23 Alfonso Renteria MD 5775 [facility] 200 [place], [place] [address] Assigned Neuroscience Provider 04/02/23 Cheng Todd PA-C [address] [place], [place] [phone] Assigned PCP 04/30/23 07/15/23 Radha Lomeli APRN INTERACTIVE MEDIA SPECIALIST [address] [facility] [address] [place] [address] Assigned Heart and Vascular Provider 05/28/23 Jelena David OD [address] [facility] [place] [address] MD Ophthalmology 06/15/23 Pao Joseph, VJ Personal Advocate & Liaison (PAL) Nurse 08/01/23 Esha Grimm PA-C [address] [place] [phone] Assigned PCP 07/16/23 Valery Veronica PA-C [address] [place] [address] Physician Assistant Director Of Financial Aid Dermatology 09/19/23 Rey Tay MD [address] [place] [address] Gastroenterology 09/20/23 Rocky Zepeda DO [address] [place] [address] 243545 Physician Gastroenterology 09/20/23 Philip Dumont MD [address] [place] [address] Physician Ophthalmology 09/22/23 documented as of this encounter
--- OUTSIDE RECORDS SUMMARY | 2023-10-15 21:53 | XMS_ITS | Encounter Summary ---
Author Name Unknown Organization [place] Address [address] [place] [address] Care Team Providers Care Hand Stitcher Name Role Phone Lita Oseguera Unavailable Unavailable Marija Edgar APRN CARTON PACKAGING 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 Primary Care Provider U mandaailMarija Callaway APRN, CNP Unavailable Unavail able Keisha Dotson MD Unavailable [phone] Diana Desir [facility] Unavailable [phone] Rain Galaviz PA-C Unavailable [phone] Tavai Wyatt MD Unavailable Unavailable Erica Farrell APRN CARTON PACKAGING 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 Unavailable Rich Barrett MD Unavailable [phone] Neil Kent MD Unavailable Diana Desir [facility] Unavailable [phone] Livan Sharif MD Unavailable Catherine Cm MD Unavailable + Valery Veronica PA-C Unavailable [phone] Brea Quinn APRN CARTON PACKAGING 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 Unavailable Brea Quinn APRN CARTON PACKAGING 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 Unavailable Jose Francisco Johnson MD Unavailable Catherine Cm MD Unavailable + Sydnie Martinez RN Unavailable Unavailable Alfonso Renteria MD Unavailable [phone] Esha GrimmC Primary Care Provider Cheng Todd PAUcheC Unavailable [phone] Armani Radha Stovall APRN CARTON PACKAGING 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 Unavailable [phone] Jelena David OD Unavailable Pao Joseph RN Unavailable Unavailable Esha Grimm PA-C Unavailable [phone] Valery VeronicaC Unavailable Rey Tay MD Unavailable Rocky Zepeda DO Unavailable Philip Dumont MD Unavailable [phone] Encounter Details Date Type Department Care Team (Late st Contact Info) Description 01/28/2023 MyC Medical Advice [facility] [address] [place] [address] Margaret Rendon, RN Social History Tobacco Use Types Packs/Day [...] the phone with family, friends, or neighbors? Twice a week 09/22/2021 How often do you get together with friends or re latives? Twice a week 09/22/2021 How often do you attend yazidism or roman catholic serv ices? Never 09/22/2021 Do you belong to any clubs o r organizations such as yazidism groups, unions, [email or web address] or athletic groups, or school groups? No 09/22/2021 Attends Club or Organization Meetings Not on shlomo e 09/22/2021 Are you , , di vorced, , never , or living with a partner? Never 09/22/2021 AUDIT-C Answer Date Recorded Q1: How often do you have a drink containing alc ohol? Never 09/22/2021 Q2: How many drinks containi ng alcohol do you have on a typical day when you are drinking? Patient declined 09/22/2021 Q3: How often do you have si x or more drinks on one occasion? Never 09/22/2021 Overall Financial Resource Strain (CARDIA) Answe r Date Recorded How hard is it for you to pa y for the very basics like food, housing, medical care, and heating? Not very hard 09/22/2021 PHQ-2 Answer Date Recorded PHQ-2 Score 1 10/11/2022 [facility] of Occupat ional Health - Occupational Stress Questionnaire Answer Date Recorded Do you feel stress - tense, restless, nervous, or anxious, or unable to sleep at night because your mind is troubled all the time - these days? To some extent 09/22/2021 Exercise Vital Sign Answer Date Recorde d On average, how many days pe r week do you engage in moderate to strenuous exercise (like a brisk walk)? 1 day 09/22/2021 On average, how many minutes do you engage in exercise at this level? 10 min 09/22/2021 Hunger Vital Sign Answer Date Recorded Within the past 12 months, y ou worried that your food would run out before you got the money to buy more. Never true 09/23/19 22 Within the past 12 months, t he food you bought just didn't last and you didn't have money to get more. Never true 09/22/2021 PRAPARE - Transportation Answer Date Re corded In the past 12 months, has l ack of transportation kept you from medical appointments or from getting medications? No 09/08 In the past 12 months, has l ack of transportation kept you from meetings, work, or from getting things needed for daily living? No 09/22/2021 Housing Stability Vital Sign Answer Chip e Recorded In the last 12 months, was t here a time when you were not able to pay the mortgage or rent on time? No 09/22/2021 In the last 12 months, how many places have you lived? 1 09/22/2021 In the last 12 months, was t here a time when you did not have a steady place to sleep or slept in a correction (including now)? No 09/22/2021 Winslow Depression Scale Answer Date Recorded Winslow Depression Score 5 01/14/2021 Last EPDS Self Harm Result Not on file 01/14 Education Answer Date Recorded What is the [...] suspected to have Coronavirus/COVID-19? No / Unsure 01/31/2023 11:02 AM CDT documented as of this encounter Plan of Treatment Upcoming Encounters Date Type Department Care Team (Late st Contact Info) Description 10/25/2023 11:30 AM CDT Virtual Visit [facility] [address] [place] [address] Nelly Mesa, RD 909 [place] [address] 11/03/2023 8:00 AM CDT Office Visit [facility] 830 [place] [address] Valery Veronica PA-C 909 [place] [address] 11/29/2023 8:00 AM CDT Office Visit [facility] [address] [place] [phone] Esha Grimm PA-C [address] [place] [address] 01/02/2024 8:00 AM CDT Office Visit [facility] [address] [place] [phone] Lauren Claudio PA-C [address] [place], [place] [phone] Kelli Perez MD [address] [place] [address] [phone] documented as of this encounter Visit Diagnoses Not on filedocumented in this encounter Additional Health Concerns Infection Onset Date Last Indicated Resolved Time Rule Out COVID-19 03/07/2023 03/07/2023 03/07/2023 1:20 PM CDT Assessment Noted Time PHQ-9 Depression Total Score: 5 10/11/19 8:58 AM CDT documented as of this encounter Care Teams Hand Stitcher Relationship Specialty Start Date End Date Marija Edgar APRN CNP PCP - General Nurse Practitioner 04/30/20 04/14/23 Esha Grimm PA-C [address] [place] [address] PCP - General Family Medicine 05/04/23 Lita Oseguera Personal Advocate & Liaison (PAL) 02/28/20 03/27/23 Marija Edgar APRN CARTON PACKAGING 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 Assigned PCP 06/08/20 04/29/23 Keisha Dotson MD 909 [place] [address] Assigned Neuroscience Provider 06/04/20 04/01/23 Diana Desir, [facility] [address] [place] [address] Pharmacist Pharmacist 04/17/21 Rain Galaviz PA-C [address] [place] [address] [address] [place] [address] Physician Athlete Manager Dermatology 04/28/21 Tavia Wyatt MD [address] [place] [address] [address] RA[address] [facility] [address] [place] [address] Dermatology 07/14/21 Erica Farrell APRN CARTON PACKAGING 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 [address] [place], [place] 613635 Nurse Practitioner Cardiovascular Disease 09/09/21 Rich Barrett MD [address] 264935 Physician Ophthalmology 01/21/22 Neil Kent MD [address] [place] [address] 721875 Dermatology 02/24/22 Diana Desir, [facility] 3033 [place] [address] Assigned MTM Pharmacist 04/07/22 Livan Sharif MD [address] [facility] [address] [place] [address] Cardiovascular Disease 05/14/22 Catherine Cm MD [address] [place] [address] [place] [address] Cardiovascular Disease 07/21/22 Valery Veronica, PA-C [address] [place] [address] Physician Athlete Manager Dermatology 07/21/22 Brea Quinn APRN CARTON PACKAGING 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 [address] [place] [address] Nurse Practitioner Dermatology 09/21/22 Brea Quinn APRN CARTON PACKAGING 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 [address] [place] [address] Assigned Surgical Provider 10/09/22 [place] [address] [address] Assigned Musculoskeletal Provider 10/09/22 Catherine Cm MD [address] [facility] [place] [address] Assigned Heart and Vascular Provider 11/13/22 05/27/23 Sydnie Martinez RN Personal Advocate & Liaison (PAL) Family Medicine 9/18/23 1/21/24 Alfonso Renteria MD [address] [place] [address] Assigned Neuroscience Provider 04/02/23 Cheng Todd PA-C [address] [place], [place] 23948124 Assigned PCP 04/30/23 07/15/23 Radha Lomeli APRN CARTON PACKAGING 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 6[address] [facility] [address] [place], [place] 079565 Assigned Heart and Vascular Provider 05/28/23 Jelena David OD [address] [facility] [place] [address] Ophthalmology 06/15/23 Pao Joseph, VJ Personal Advocate & Liaison (PAL) Nurse 08/01/23 Esha Grimm PA-C [address] [place] [address] Assigned PCP 07/16/23 Valery Veronica PA-C [address] [place] [address]755 Physician Athlete Manager Dermatology 09/19/23 Rey Tay MD [address] [place] [address] 422355 Gastroenterology 09/20/23 Rocky Zepeda DO [address] [place] [address] [phone] Physician Gastroenterology 09/20/23 Philip Dumont MD [address] [place] [address] Physician Ophthalmology 09/22/23 documented as of this encounter
--- OUTSIDE RECORDS SUMMARY | 2023-10-15 21:53 | XMS_ITS | Encounter Summary ---
Author Name Unknown Organization [place] Address [address] [place] [address] Care Team Providers Care Greeter Guest Services Name Role Phone OumarAlee layyn Unavailable Unavailable Marija Edgar APRN MANAGER SHAREPOINT Primary Care Provider U mandaailMarija Callaway APRN MANAGER SHAREPOINT Unavailable Unavail able Keisha Dotson MD Unavailable [phone] Diana Desir [facility] Unavailable [phone] Rain Galaviz PA-C Unavailable [phone] Tavia Wyatt MD Unavailable Unavailable Erica Farrell APRN MANAGER SHAREPOINT Unavailable Rich Barrett MD Unavailable [phone] Neil Kent MD Unavailable Diana Desir [facility] Unavailable [phone] Livan Sharif MD Unavailable Catherine Cm MD Unavailable + Valery Veronica PA-C Unavailable [phone] Catherine Cm MD Unavailable + Brea Quinn APRN MANAGER SHAREPOINT Unavailable [phone] Brea Quinn APRN MANAGER SHAREPOINT Unavailable [phone] Jose Francisco Johnson MD Unavailable Livan Sharif MD Unavailable Catherine Cm MD Unavailable + Sydnie Martinez RN Unavailable Unavailable Alfonso Renteria MD Unavailable [phone] Esha Grimm PA-C Primary Care Provider Cheng Todd PA-C Unavailable Radha Lomeli APRN MANAGER SHAREPOINT Unavailable Jelena David OD Unavailable Pao Joseph RN Unavailable Unavailable Esha GrimmC Unavailable [phone] Valery Veronica PA-C Unavailable [phone] Rey Tay MD Unavailable Rocky Zepeda DO Unavailable Philip Dumont MD Unavailable Reason for Visit * Reason Onset Date Comments MyChart Communication 10/27/2022 Encounter Details Date Type Department Care Team (Late st Contact Info) Description 10/27/2022 MyC Medical Advice [address] [address] Brea Quinn, PIERCER OPERATOR MANAGER SHAREPOINT [address] [place] [address] [phone] [employer] (/) Social History Tobacco Use Types Packs/Day Years [...] week 09/22/2021 How often do you attend hindu or sikh serv ices? Never 09/22/2021 Do you belong to any clubs o r organizations such as hindu groups, unions, fraternal or athletic groups, or [...] Answer Date Recorded PHQ-2 Score 1 10/11/2022 [facility] of Occupat ional Health - Occupational Stress [...] or slept in a usp (including now)? No 09/22/2021 [place] Depression Scale Answer Date Recorded [place] Depression Score 5 01/14/2021 Last EPDS Self [...] suspected to have Coronavirus/COVID-19? No / Unsure 10/26/2022 8:05 AM CDT documented as of this encounter Miscellaneous Notes * Telephone Encounter - Letha Pineda RN - 10/27/2022 9:29 AM CDT Please review my chart message and advise. Letha Driver RN [facility] [phone] documented in this encounter Plan of Treatment Upcoming Encounters Date Type Department Care Team (Late st Contact Info) Description 10/25/2023 11:30 AM CDT Virtual Visit [facility] [address] 4th [place] [phone] Nelly Mesa, RD [address] [place] [address] 584475 11/03/2023 8:00 AM CDT Office Visit [address] [phone] Valery Veronica PA-C [address] [place] [address] 11/29/2023 8:00 AM CDT Office Visit [facility] [address] [place] [phone] Esha Grimm PA-C [address] [place] [phone] 01/02/2024 8:00 AM CDT Office [facility] [place] [address] [place] [phone] Lauren Claudio PA-C [address] [place], [place] [phone] Kelli Perez MD [address] [place] [address] [phone] documented as of this encounter Visit Diagnoses Not on filedocumented in this encounter Additional Health Concerns Infection Onset Date Last Indicated Resolved Time Rule Out COVID-19 11/10/2022 11/10/2022 11/11/2022 12:17 PM CDT Rule Out COVID-19 03/07/2023 03/07/2023 03/07/2023 1:20 PM CDT Assessment Noted Time PHQ-9 Depression Total Score: 5 10/11/19 8:58 AM CDT documented as of this encounter Care Teams Greeter Guest Services Relationship Specialty Start Date End Date Marija Edgar APRN MANAGER SHAREPOINT PCP - General Nurse Practitioner 04/30/20 04/14/23 Esha Grimm PA-C [address] [place] [address] PCP - General Family Medicine 05/04/23 Lita Oseguera Personal Advocate & Liaison (PAL) 02/28/20 03/27/23 Marija Edgar APRN MANAGER SHAREPOINT Assigned PCP 06/08/20 04/29/23 Keisha Dotson MD 909 [place] [address] Assigned Neuroscience Provider 06/04/20 04/01/23 Diana Desir, [facility] 30[address] [place] [address] Pharmacist Pharmacist 04/17/21 Rain Galaviz PA-C [address] [place] [address] [place] [address] Physician Engineer System Administrator Dermatology 04/28/21 Tavia Wyatt MD [address] [place] [address] [address] [place] [id number] Dermatology 07/14/21 Erica Farrell APRN MANAGER SHAREPOINT [address] [place] [address] Nurse Practitioner Cardiovascular Disease 09/09/21 Rich Barrett MD [address] 952595 Physician Ophthalmology 01/21/22 Neil Kent MD [address] [place] [address] Dermatology 02/24/22 Diana Desir, [facility] 30[address] [place], [place] 234326 Assigned MTM Pharmacist 04/07/22 Livan Sharif MD [address] [facility] [address] [place] [address] Cardiovascular Disease 05/14/22 Catherine Cm MD [address] [place] [address] [address] Cardiovascular Disease 07/21/22 Valery Veronica, PA-C 909 [place], [place] 681265 Physician Engineer System Administrator Dermatology 07/21/22 Catherine Cm MD [address] [place] [address] Assigned Heart and Vascular Provider 07/24/22 11/05/22 Brea Quinn APRN MANAGER SHAREPOINT 500 [place] [address] Nurse Practitioner Dermatology 09/21/22 Brea Quinn APRN MANAGER SHAREPOINT 6401 [place], [place] 406482 Assigned Surgical Provider 10/09/22 [place] [address] [facility] 300 [place], [place] 927437 Assigned Musculoskeletal Provider 10/09/22 Livan Sharif MD [address] [facility] [address] [place] [address] Assigned Heart and Vascular Provider 11/06/22 11/12/22 Catherine Cm MD [address] [facility] [address] [place] [address] Assigned Heart and Vascular Provider 11/13/22 05/27/23 Sydnie Martinez RN Personal Advocate & Liaison (PAL) Family Medicine 03/28/23 07/31/23 Alfonso Renteria MD 5775 [facility] 200 [place], [place] 272356 Assigned Neuroscience Provider 04/02/23 Cheng Todd PA-C [address] [place] [address] Assigned PCP 04/30/23 07/15/23 Radha Lomeli APRN MANAGER SHAREPOINT 6405 [facility] [address] [place] [address] Assigned Heart and Vascular Provider 05/28/23 Jelena David OD 3305 [facility] [place] [address] MD Ophthalmology 06/15/23 Pao Joseph, VJ Personal Advocate & Liaison (PAL) Nurse 08/01/23 Esha Grimm PA-C [address] [place] [phone] Assigned PCP 07/16/23 aVlery Veronica PA-C [address] [place] [address] 350545 Physician Engineer System Administrator Dermatology 09/19/23 Rey Tay MD [address] [place] [address] 398475 Gastroenterology 09/20/23 Rocky Zepeda DO [address] [place] [address] 905705 Physician Gastroenterology 09/20/23 Philip Dumont MD [address] [place] [address] 864495 Physician Ophthalmology 09/22/23 documented as of this encounter
--- OUTSIDE RECORDS SUMMARY | 2023-10-15 21:53 | XMS_ITS | Encounter Summary ---
Author Name Unknown Organization [facility] Address [address] [place] [address] Care Team Providers Care Drying Frame Operator Name Role Phone Lita Oseguera Unavailable Unavailable Marija Edgar APRN KILN TESTER Primary Care Provider U mandaailMarija Callaway APRN, CNP Unavailable Unavail able Keisha Dotson MD Unavailable [phone] Diana Desir [facility] Unavailable [phone] Rain Galaviz PA-C Unavailable [phone] Tavia Wyatt MD Unavailable Unavailable Erica Farrell APRN KILN TESTER Unavailable Rich Barrett MD Unavailable [phone] Neil Kent MD Unavailable Diana Desir [facility] Unavailable [phone] Livan Sharif MD Unavailable Catherine Cm MD Unavailable + Valery Veronica PA-C Unavailable [phone] Brea Quinn APRN KILN TESTER Unavailable Brea Quinn ANESTHESIOLOGIST ASSISTANT CERTIFIED KILN TESTER Unavailable Jose Francisco Johnson MD Unavailable Livan Sharif MD Unavailable Catherine Cm MD Unavailable + Sdynie Martinez RN Unavailable Unavailable Alfonso Renteria MD Unavailable [phone] Esha GrimmC Primary Care Provider Cheng ToddC Unavailable Radha Lomeli APRN KILN TESTER Unavailable FrankieJelena OD Unavailable Pao Joseph RN Unavailable Unavailable Esha Grimm PA-C Unavailable [phone] Valery VeronicaC Unavailable Rey Tay MD Unavailable Rocky Zepeda DO Unavailable Philip Dumont MD Unavailable [phone] Encounter Details Date Type Department Care Team (Late st Contact Info) Description 11/10/2022 [facility] Medical Advice [address] [address] Lauren Claudio PA-C [address] [place] [address] Social History Tobacco Use Types Packs/Day [...] often do you attend latter day or mu-ism serv ices? Never 09/22/2021 Do you belong to any clubs o r organizations such as latter day groups, unions, fraternal or athletic [...] Answer Date Recorded PHQ-2 Score 1 10/11/2022 [facility] of Occupat ional Health - Occupational Stress [...] a [place] facility (including now)? No 09/22/2021 Minerva Depression Scale Answer Date Recorded Minerva Depression Score 5 01/14/2021 Last EPDS Self [...] suspected to have Coronavirus/COVID-19? No / Unsure 11/10/2022 10:05 AM CDT documented as of this encounter Plan of Treatment Upcoming Encounters Date Type Department Care Team (Late st Contact Info) Description 10/25/2023 11:30 AM CDT Virtual Visit [facility] [address] 4th [place] [address] Nelly Mesa, RD 909 [place] [address] 11/03/2023 8:00 AM CDT Office Visit [facility] 830 [place] [address] Valery Veronica PA-C 909 [place] [address] 11/29/2023 8:00 AM CDT Office Visit [facility] [address] [place] [address] Esha Grimm PA-C [address] [place] [phone] 01/02/2024 8:00 AM CDT Office Visit [facility] [address] [place] [phone] Lauren Claudio PA-C [address] [place] [address] Kelli Perez MD [address] [facility] 106 [place], [place] [phone] documented as of this encounter Visit Diagnoses Not on filedocumented in this encounter Additional Health Concerns Infection Onset Date Last Indicated Resolved Time Rule Out COVID-19 11/10/2022 11/10/2022 11/11/2022 12:17 PM CDT Rule Out COVID-19 03/07/2023 03/07/2023 03/07/2023 1:20 PM CDT Assessment Noted Time PHQ-9 Depression Total Score: 5 10/11/19 23 8:58 AM CDT documented as of this encounter Care Teams Drying Frame Operator Relationship Specialty Start Date End Date Marija Edgar APRN KILN TESTER PCP - General Nurse Practitioner 04/30/20 04/14/23 Esha Grimm PA-C [address] [place] [address] PCP - General Family Medicine 05/04/23 Lita Oseguera Personal Advocate & Liaison (PAL) 02/28/20 03/27/23 Marija Edgar APRN KILN TESTER Assigned PCP 06/08/20 04/29/23 Keisha Dotson MD 909 [place], [place] 678865 Assigned Neuroscience Provider 06/04/20 04/01/23 Diana Desir, [facility] [place] [address] [place], [place] 812676 Pharmacist Pharmacist 04/17/21 Rain Galaviz PA-C [address] [place] [address] [address] [facility] [place] [address] Physician Clothes Separator Dermatology 04/28/21 Tavia Wyatt MD [address] [place] [address] [address] [facility] [address] Dermatology 07/14/21 Erica Farrell APRN KILN TESTER [address] [facility] [address] [place] [address] Nurse Practitioner Cardiovascular Disease 09/09/21 Rich Barrett MD 516 [facility] 9A [place], [place] 87[address]95 Physician Ophthalmology 01/21/22 Neil Kent MD 500 [place] [address] Dermatology 02/24/22 Diana Desir, [facility] [place] 3033 [place] [address] Assigned MTM Pharmacist 04/07/22 Livan Sharif MD [address] [place], [place] 914915 Cardiovascular Disease 05/14/22 Catherine Cm MD [address] [place], [place] 346985 Cardiovascular Disease 07/21/22 Valery Veronica, PA-C 909 [place] [address] Physician Clothes Separator Dermatology 07/21/22 Brea Quinn APRN KILN TESTER 500 [place] [address] Nurse Practitioner Dermatology 09/21/22 Brea Quinn APRN KILN TESTER 6401 [place] [address] Assigned Surgical Provider 10/09/22 [place] [address] [place] [address] Assigned Musculoskeletal Provider 10/09/22 Livan Sharif MD [address] [place] [address] Assigned Heart and Vascular Provider 11/06/22 11/12/22 Catherine Cm MD [address] [place] [address] Assigned Heart and Vascular Provider 11/13/22 05/27/23 Sydnie Martinez RN Personal Advocate & Liaison (PAL) Family Medicine 03/28/23 07/31/23 Alfonso Renteria MD 5775 [facility] 200 [place] [address] Assigned Neuroscience Provider 04/02/23 Cheng Todd PA-C [address] [place], [place] 44399124 Assigned PCP 04/30/23 07/15/23 Radha Lomeli APRN KILN TESTER [address] [place] [address] Assigned Heart and Vascular Provider 05/28/23 Jelena David OD [facility]5 [facility] [place] [address] Ophthalmology 06/15/23 Pao Joseph, VJ Personal Advocate & Liaison (PAL) Nurse 08/01/23 Esha Grimm PA-C [address] [place] [address] Assigned PCP 07/16/23 Valery Veronica PA-C [address] [place] [address] Physician Clothes Separator Dermatology 09/19/23 Rey Tay MD [address] [place] [address] Gastroenterology 09/20/23 Rocky Zepeda DO [address] [place] [address] Physician Gastroenterology 09/20/23 Philip Dumont MD [address] [place] [address] Physician Ophthalmology 09/22/23 documented as of this encounter
--- OUTSIDE RECORDS SUMMARY | 2023-10-15 21:53 | XMS_ITS | Encounter Summary ---
Author Name Unknown Organization [facility] Address [address] [place] [address] Care Team Providers Care Seafood Technology Specialist Name Role Phone Lita Oseguera Unavailable Unavailable Marija Edgar APRN CEO ZIFF DAVIS Primary Care Provider U mandaailMarija Callaway APRN, CNP Unavailable Unavail able Keisha Dotson MD Unavailable [phone] Diana Desir [facility] Unavailable [phone] Rain Galaviz PA-C Unavailable [phone] Tavia Wyatt MD Unavailable Unavailable Erica Farrell APRN CEO ZIFF DAVIS Unavailable Rich Barrett MD Unavailable [phone] Neil [place] MD Unavailable Diana Desir [facility] Unavailable [phone] Livan Sharif MD Unavailable Catherine Cm MD Unavailable + Valery Veronica PA-C Unavailable [phone] Brea Quinn APRN CEO ZIFF DAVIS Unavailable [phone] Brea Quinn APRN CEO ZIFF DAVIS Unavailable Jose Francisco Johnson MD Unavailable Catherine Cm MD Unavailable + Sydnie Martinez RN Unavailable Unavailable Alfonso Renteria MD Unavailable [phone] Esha GrimmC Primary Care Provider Cheng ToddC Unavailable [phone] Armani Radha Stovall APRN CEO ZIFF DAVIS Unavailable Jelena David OD Unavailable Pao Joseph RN Unavailable Unavailable Esha Grimm PA-C Unavailable [phone] Valery VeronicaC Unavailable [phone] Rey Tay MD Unavailable Rocky Zepeda DO Unavailable Philip Dumont MD Unavailable Encounter Details Date Type Department Care Team (Late st Contact Info) Description 12/23/2022 [facility] Medical Advice [facility] [address] [place] [address] Lauren Claudio PA-C [address] [place] [address] Social History Tobacco Use Types Packs/Day [...] How often do you attend latter-day or faith serv ices? Never 09/22/2021 Do you belong to any clubs o r organizations such as latter-day groups, unions, fraternal or athletic groups, [...] Answer Date Recorded PHQ-2 Score 1 10/11/2022 [facility] - [...] slept in a long term (including now)? No 09/22/2021 [place] Depression Scale Answer Date Recorded [place] Depression Score 5 01/14/2021 Last EPDS Self [...] suspected to have Coronavirus/COVID-19? No / Unsure 12/23/2022 2:34 PM CDT documented as of this encounter Plan of Treatment Upcoming Encounters Date Type Department Care Team (Late st Contact Info) Description 10/25/2023 11:30 AM CDT Virtual Visit [facility] [address] [place] [address] Nelly Mesa, [address] [place] [address] 11/03/2023 8:00 AM CDT Office Visit [facility] 830 [place] [address] Valery Veronica PA-C 909 [place] [address] 11/29/2023 8:00 AM CDT Office Visit [facility] [address] [place] [address] Esha Grimm PA-C [address] [place] [address] 01/02/2024 8:00 AM CDT Office Visit [facility] [address] [place] [phone] Lauren Claduio PA-C [address] [place] [address] Kelli Perez MD [address] 518084 documented as of this encounter Visit Diagnoses Not on filedocumented in this encounter Additional Health Concerns Infection Onset Date Last Indicated Resolved Time Rule Out COVID-19 03/07/2023 03/07/2023 03/07/2023 1:20 PM CDT Assessment Noted Time PHQ-9 Depression Total Score: 5 10/11/19 8:58 AM CDT documented as of this encounter Care Teams Seafood Technology Specialist Relationship Specialty Start Date End Date Marija Edgar APRN CNP PCP - General Nurse Practitioner 04/30/20 04/14/23 Esha Grimm PA-C [id number] [place] [phone] PCP - General Family Medicine 05/04/23 Lita Oseguera Personal Advocate & Liaison (PAL) 02/28/20 03/27/23 Marija Edgar APRN CEO ZIFF DAVIS Assigned PCP 06/08/20 04/29/23 Keisha Dotson MD 9 [place] [address] Assigned Neuroscience Provider 06/04/20 04/01/23 [facility] 3033 [place] [address] Pharmacist Pharmacist 04/17/21 Rain Galaviz PA-C [address] [place] [address] [address] [place] [address] Physician Specialty Development Consultant Dermatology 04/28/21 Tavia Wyatt MD [address] [place] [address] [address]ZO [place] [address] Dermatology 07/14/21 Erica Farrell APRN CEO ZIFF DAVIS [address] [place], [place] 09[address] Nurse Practitioner Cardiovascular Disease 09/09/21 Rich Barrett MD [address] [id number] Physician Ophthalmology 01/21/22 Neil [place] MD 500 [place], [place] [address] Dermatology 02/24/22 Diana Desir, [facility] 30[address] [place] [address] Assigned MTM Pharmacist 04/07/22 Livan Sharif MD [address], [address] [place] [address] Cardiovascular Disease 05/14/22 Catherine Cm MD [address] [place] 158525 Cardiovascular Disease 07/21/22 Valery Veronica, PAUcheC [address] [place] [address] 446455 Physician Specialty Development Consultant Dermatology 07/21/22 Brea Quinn APRN CEO ZIFF DAVIS [address] [place] [address] 776395 Nurse Practitioner Dermatology 09/21/22 Brea Quinn APRN CEO ZIFF DAVIS [address] [place] [address] 660192 Assigned Surgical Provider 10/09/22 [place] [address] [place] [address] 427177 Assigned Musculoskeletal Provider 10/09/22 Catherine Cm MD [address] [place] [address] Assigned Heart and Vascular Provider 11/13/22 05/27/23 Sydnie Martinez RN Personal Advocate & Liaison (PAL) Family Medicine 03/28/23 07/31/23 Alfonso Renteria MD [address]75 [facility] [address] [place] [address] Assigned Neuroscience Provider 04/02/23 Cheng Todd PA-C [address] [place], [place] 01869124 Assigned PCP 04/30/23 07/15/23 Radha Lomeli APRN CEO ZIFF DAVIS [address] [facility] [address] [place] [address] Assigned Heart and Vascular Provider 05/28/23 Jelena David OD [address] [facility] [place] [address] Ophthalmology 06/15/23 Pao Joseph, VJ Personal Advocate & Liaison (PAL) Nurse 08/01/23 Esha Grimm PA-C [address] [place] [address] Assigned PCP 07/16/23 Valery Veronica PA-C [address] [place] [address] 090715 Physician Specialty Development Consultant Dermatology 09/19/23 Rey Tay MD [address] [place] [address] 439425 Gastroenterology 09/20/23 Rocky Zepeda DO [address] [place] [address] Physician Gastroenterology 09/20/23 Philip Dumont MD [address] [place] [address] Physician Ophthalmology 09/22/23 documented as of this encounter
--- OUTSIDE RECORDS SUMMARY | 2023-10-15 21:53 | XMS_ITS | Encounter Summary ---
Author Name Unknown Organization [facility] Address [address] [place] [address] Care Team Providers Care Mobile Patrol Officer Name Role Phone Marija Edgar APRN, CNP Primary Care Provider Marija Emery APRN, CNP Unavailable Unavail able Keisha Dotson MD Unavailable [phone] Diana Desir [facility] Unavailable [phone] Rain Galaviz PA-C Unavailable [phone] Tavia Wyatt MD Unavailable Unavailable Erica Farrell APRN NEEDLE BOARD REPAIRER Unavailable Rich Barrett MD Unavailable [phone] Neil [place] MD Unavailable Diana Desir [facility] Unavailable [phone] Livan Sharif MD Unavailable Catherine Cm MD Unavailable + Valery Veronica PA-C Unavailable [phone] Brea Quinn APRN NEEDLE BOARD REPAIRER Unavailable [phone] Brea Quinn APRN NEEDLE BOARD REPAIRER Unavailable Jose Francisco Johnson MD Unavailable Catherine Cm MD Unavailable + Sydnie Martinez RN Unavailable Unavailable Alfonso Renteria MD Unavailable [phone] Esha Grimm PA-C Primary Care Provider [phone] Cheng Todd PA-C Unavailable Radha Lomeli APRN NEEDLE BOARD REPAIRER Unavailable [phone] Frankie Jelena Templetone OD Unavailable Pao Joseph RN Unavailable Unavailable Esha Grimm PA-C Unavailable [phone] Valery Veronica PA-C Unavailable [phone] Rey Tay MD Unavailable Rocky Zepeda DO Unavailable Philip Dumont MD Unavailable [phone] Encounter Details Date Type Department Care Team (Late st Contact Info) Description 03/29/2023 [facility] Medical Advice [address] [address] [facility] 3033 [place], [place] [phone] Social History Tobacco Use Types Packs/Day Years [...] week 03/10/2023 How often do you attend [facility] or mu-ism services? 1 to 4 times [...] Answer Date Recorded PHQ-2 Score 0 03/10/2023 [facility]at [facility] [...] money to buy more. Never true 03/10/20 Within the past 12 months, t he [...] or slept in a intermediate (including now)? No 03/10/2023 [place] Depression Scale Answer Date Recorded [place] Depression Score 5 01/14/2021 Last EPDS Self [...] suspected to have Coronavirus/COVID-19? No / Unsure 03/23/2023 3:17 PM CDT documented as of this encounter Plan of Treatment Upcoming Encounters Date Type Department Care Team (Late st Contact Info) Description 10/25/2023 11:30 AM CDT Virtual Visit [facility] G[facility] Clinic [address] [place] [address] [address], [address] [place] [address] 11/03/2023 8:00 AM CDT Office Visit [facility] 830 [place] [address] Valery Veronica PA-C 909 [place] [address] 11/29/2023 8:00 AM CDT Office Visit [facility] [address] [place] [address] Esha Grimm PA-C [address] [place] [address] 01/02/2024 8:00 AM CDT Office Visit [facility] [address] [place] [phone] Lauren Claudio PA-C [address] [place] [address] Kelli Perez MD [address] [facility] 106 [place], [place] 310964 documented as of this encounter Visit Diagnoses Not on filedocumented in this encounter Additional Health Concerns Assessment Noted Time PHQ-9 Depression Total Score: 5 03/10/20 23 6:49 AM CDT documented as of this encounter Care Teams Mobile Patrol Officer Relationship Specialty Start Date End Date Marija Edgar APRN NEEDLE BOARD REPAIRER PCP - General Nurse Practitioner 04/30/20 04/14/23 Esha Grimm PA-C [address] [place] [address] PCP - General Family Medicine 05/04/23 Marija Edgar APRN NEEDLE BOARD REPAIRER Assigned PCP 06/08/20 04/29/23 Keisha Dotson MD 9 [place] [address] Assigned Neuroscience Provider 06/04/20 04/01/23 Diana Desir, [facility] [address] [place] [address] Pharmacist Pharmacist 04/17/21 Rain Galaviz PA-C [address] [place] [address] [address] [place] [address] Physician Graphics Intern Dermatology 04/28/21 Tavia Wyatt MD [address] [place] [address] [address] RA[address] [facility] [place] [address] Dermatology 07/14/21 Erica Farrell APRN NEEDLE BOARD REPAIRER [address] [place] [address] Nurse Practitioner Cardiovascular Disease 09/09/21 Rich Barrett MD [address] [place] [address] 975745 Physician Ophthalmology 01/21/22 Neil [place] MD [address] [place] [address] 810515 Dermatology 02/24/22 Diana Desir, [facility] [place] [address] Assigned MTM Pharmacist 04/07/22 Livan Sharif MD [address], [facility] [address] [place] 8[address]75 Cardiovascular Disease 05/14/22 Catherine Cm MD [address] [place] 405795 Cardiovascular Disease 07/21/22 Valery Veronica, PAUcheC [address] [place] [address] 033365 Physician Graphics Intern Dermatology 07/21/22 Brea Quinn APRN NEEDLE BOARD REPAIRER [address] [place] [address] 905115 Nurse Practitioner Dermatology 09/21/22 Brea Quinn APRN NEEDLE BOARD REPAIRER 6401 [facility] [place] 842872 Assigned Surgical Provider 10/09/22 [place] [address] [facility] 300 [place] [address] Assigned Musculoskeletal Provider 10/09/22 Catherine Cm MD [address] [facility] [address] [place] [address] Assigned Heart and Vascular Provider 11/13/22 05/27/23 Sydnie Martinez, RN Personal Advocate & Liaison (PAL) Family Medicine 03/28/23 07/31/23 Alfonso Renteria MD [address] [place] [address] Assigned Neuroscience Provider 04/02/23 Cheng Todd PA-C [address] [place], [place] 89039124 Assigned PCP 04/30/23 07/15/23 Radha Lomeli APRN NEEDLE BOARD REPAIRER 6405 [facility] [address] [place] [address] Assigned Heart and Vascular Provider 05/28/23 Jelena David OD [address] [facility] [place] [address] MD Ophthalmology 06/15/23 Pao Joseph, VJ Personal Advocate & Liaison (PAL) Nurse 08/01/23 Esha Grimm PA-C [address] [place] [address] Assigned PCP 07/16/23 Valery Veronica PA-C [address] [place] [address] 005165 Physician Graphics Intern Dermatology 09/19/23 Rey Tay MD [address] [place] [address] 958875 Gastroenterology 09/20/23 Rocky Zepeda DO [address] [place] [address] 979885 Physician Gastroenterology 09/20/23 Philip Dumont MD [address] [place] [address] Physician Ophthalmology 09/22/23 documented as of this encounter
--- OUTSIDE RECORDS SUMMARY | 2023-10-15 21:53 | XMS_ITS | Encounter Summary ---
Author Name Unknown Organization [facility] Address [address] [place] [address] Care Team Providers Care Infrastructure Engineer Name Role Phone HerveMarija APRN QUALITY ASSURANCE NURSE Unavailable Unavail able Diana Desir [facility] Unavailable [phone] Rain Galaviz PA-C Unavailable [phone] Tavia Wyatt MD Unavailable Unavailable Erica Farrell APRN QUALITY ASSURANCE NURSE Unavailable Rich Barrett MD Unavailable [phone] Neil [place] MD Unavailable Diana Desir [facility] Unavailable [phone] Livan Sharif MD Unavailable Catherine Cm MD Unavailable + Valery Veronica PA-C Unavailable [phone] Brea Quinn BREADING MACHINE TENDER QUALITY ASSURANCE NURSE Unavailable Brea Quinn BREADING MACHINE TENDER QUALITY ASSURANCE NURSE Unavailable [phone] Jose Francisco Johnson MD Unavailable Catherine Cm MD Unavailable + Sydnie Martinez RN Unavailable Unavailable Alfonso Renteria MD Unavailable [phone] Esha GrimmC Primary Care Provider [phone] Cheng Todd PA-C Unavailable Armani Radha Stovall APRN QUALITY ASSURANCE NURSE Unavailable Jelena David OD Unavailable Pao Joseph RN Unavailable Unavailable Esha Grimm PA-C Unavailable Valery VeronicaC Unavailable Rey Tay MD Unavailable Rocky Zepeda DO Unavailable Philip Dumont MD Unavailable Reason for Visit * Reason Onset Date Comments Erroneous encounter-disregard 04/15/2023 Encounter Details Date Type Department Care Team (Late st Contact Info) Description 04/15/2023 Telephone [facility] Epilepsy Care [address] [facility], [address] [place] [address] Alfonso Renteria MD 5775 [facility] [address] [place] [address] Erroneous encounter-disregard Social History Tobacco Use Types Packs/Day Years [...] How often do you attend [facility] or hoahaoism services? 1 to 4 times per year [...] Answer Date Recorded PHQ-2 Score 0 03/10/2023 [facility]ational Stress Questionnaire Answer Date [...] exercise at this level? 30 min 03/10/2023 Mobile Depression Scale Answer Date Recorded Mobile Depression Score 5 01/14/2021 Last EPDS Self [...] Description 10/25/2023 11:30 AM CDT Virtual Visit [facility] Gastroenterology Clinic [address] [place] [address] Nelly Mesa, RD [address] [place] [address] 562035 11/03/2023 8:00 AM CDT Office Visit [address] [address] Valery Veronica, PAUcheC 909 [place] [address] 11/29/2023 8:00 AM CDT Office Visit [facility] [address] [place] [phone] Esha Grimm PA-C [address] [place] [address] 01/02/2024 8:00 AM CDT Office Visit [facility] [address] [place] [phone] Lauren Claudio PA-C [address] [place] [address] Kelli Perez MD 606 [facility] 106 [place], [place] 785194 documented as of this encounter Visit Diagnoses Not on filedocumented in this encounter Additional Health Concerns Assessment Noted Time PHQ-9 Depression Total Score: 5 03/10/20 23 6:49 AM CDT documented as of this encounter Care Teams Infrastructure Engineer Relationship Specialty Start Date End Date Esha Grimm PA-C [id number] [place] [address] PCP - General Family Medicine 05/04/23 Marija Edgar APRN QUALITY ASSURANCE NURSE Assigned PCP 06/08/20 04/29/23 Diana Desir, [facility] 30[address] [place] [address] Pharmacist Pharmacist 04/17/21 Rain Galaviz PA-C [address] [place] [address] [address] [place] [address] Physician Intelligence Research Specialist Dermatology 04/28/21 Tavia Wyatt MD [address] [place] [address] [place] [address] Dermatology 07/14/21 Erica Farrell APRN QUALITY ASSURANCE NURSE [address] [place] [address] Nurse Practitioner Cardiovascular Disease 09/09/21 Rich Barrett MD [address] [place] [address] 572505 Physician Ophthalmology 01/21/22 Neil [place] MD [address] [place] [address] 832805 Dermatology 02/24/22 Diana Desir, [facility] [address] [place] [address] 495436 Assigned [place] Pharmacist 04/07/22 Livan Sharif MD [address], [facility]00 [place] 819165 Cardiovascular Disease 05/14/22 Catherine Cm MD [address] [facility] [place] 611795 Cardiovascular Disease 07/21/22 Valery Veronica, PA-C [address] [place] [address] 822375 Physician Intelligence Research Specialist Dermatology 07/21/22 Brea Quinn APRN QUALITY ASSURANCE NURSE 500 [place], [place] 965205 Nurse Practitioner Dermatology 09/21/22 Brea Quinn APRN QUALITY ASSURANCE NURSE 6401 [place], [place] 021002 Assigned Surgical Provider 10/09/22 [place] [address] [facility] 300 [place], [place] 937917 Assigned Musculoskeletal Provider 10/09/22 Catherine Cm MD [address] [place] 427565 Assigned Heart and Vascular Provider 11/13/22 05/27/23 Sydnie Martinez, RN Personal Advocate & Liaison (PAL) Family Medicine 03/28/23 07/31/23 Alfonso Renteria MD 5775 [facility] 200 [place], [place] 898496 Assigned Neuroscience Provider 04/02/23 Cheng Todd PA-C [address] [place], [place] 39498124 Assigned PCP 04/30/23 07/15/23 Radha Lomeli APRN QUALITY ASSURANCE NURSE [address] [facility] [address] [place] 195695 Assigned Heart and Vascular Provider 05/28/23 Jelena David OD [address] [facility] [place] [address] Ophthalmology 06/15/23 Pao Joseph, RN Personal Advocate & Liaison (PAL) Nurse 08/01/23 Esha Grimm PA-C [address] [place] [address] Assigned PCP 07/16/23 Valery Veronica PA-C 909 [place], [place] 456355 Physician Intelligence Research Specialist Dermatology 09/19/23 Rey Tay MD [address] [place] [address] Gastroenterology 09/20/23 Rocky Zepeda DO [address] [place] [address] 442155 Physician Gastroenterology 09/20/23 Philip Dumont MD [address] [place] [address] 658885 Physician Ophthalmology 09/22/23 documented as of this encounter
--- OUTSIDE RECORDS SUMMARY | 2023-10-15 21:53 | XMS_ITS | Encounter Summary ---
Author Name Unknown Organization [facility] Address [address] [place] [address] Care Team Providers Care Construction Flagger Name Role Phone OumarAlee layyn Unavailable Unavailable Marija Edgar APRN HSE COORDINATOR Primary Care Provider U mandaailMarija Callaway APRN HSE COORDINATOR Unavailable Unavail able Keisha Dotson MD Unavailable [phone] Diana Desir [facility] Unavailable [phone] Rain Galaviz PA-C Unavailable [phone] Tavia Wyatt MD Unavailable Unavailable Erica Farrell APRN HSE COORDINATOR Unavailable Rich Barrett MD Unavailable [phone] Neil Kent MD Unavailable Diana Desir [facility] Unavailable [phone] Livan Sharif MD Unavailable Catherine Cm MD Unavailable + Valery Veronica PA-C Unavailable [phone] Catherine Cm MD Unavailable + Brea Quinn APRN HSE COORDINATOR Unavailable [phone] Brea Quinn APRN HSE COORDINATOR Unavailable [phone] Jose Francisco Johnson MD Unavailable Livan Sharif MD Unavailable Catherine Cm MD Unavailable + Sydnie Martinez RN Unavailable Unavailable Alfonso Renteria MD Unavailable [phone] Esha GrimmC Primary Care Provider [phone] Cheng Todd PAUcheC Unavailable Armani Radha Stovall RECOVERY ENGINEER HSE COORDINATOR Unavailable Jelena David OD Unavailable Pao Joseph RN Unavailable Unavailable Esha GrimmC Unavailable [phone] Valery VeronicaC Unavailable Rey Tay MD Unavailable Rocky Zepeda DO Unavailable Philip Dumont MD Unavailable [phone] Encounter Details Date Type Department Care Team (Late st Contact Info) Description 10/22/2022 [facility] [address] [place] [phone] Lauren Claudio PA-C [address] [place] [address] Social History Tobacco Use Types Packs/Day [...] How often do you attend sabianist or holiness serv ices? Never 09/22/2021 Do you belong to any clubs o r organizations such as sabianist groups, unions, fraternal or athletic groups, [...] Answer Date Recorded PHQ-2 Score 1 10/11/2022 [facility] [place] of Occupat ional Health - Occupational Stress [...] or slept in a retirement (including now)? No 09/22/2021 [place] Depression Scale Answer Date Recorded [place] Depression Score 5 01/14/2021 Last EPDS Self [...] suspected to have Coronavirus/COVID-19? No / Unsure 10/21/2022 3:22 PM CDT documented as of this encounter Plan of Treatment Upcoming Encounters Date Type Department Care Team (Late st Contact Info) Description 10/25/2023 11:30 AM CDT Virtual Visit [facility] [address]th [place] [phone] [address], [address] [place] [address] 11/03/2023 8:00 AM CDT Office Visit [facility] 830 [place] [phone] Valery Veronica PA-C 909 [place] [address] 11/29/2023 8:00 AM CDT Office Visit [facility] [address] [place] [phone] Esha Grimm PA-C [address] [place] [phone] 01/02/2024 8:00 AM CDT Office Visit [facility] [place] [address] [place] [phone] Lauren Claudio PA-C [address] [place], [place] [phone] Kelli Perez MD [address] [place] [address] 936494 documented as of this encounter Visit Diagnoses Not on filedocumented in this encounter Additional Health Concerns Infection Onset Date Last Indicated Resolved Time Rule Out COVID-19 11/10/2022 11/10/2022 11/11/2022 12:17 PM CDT Rule Out COVID-19 03/07/2023 03/07/2023 03/07/2023 1:20 PM CDT Assessment Noted Time PHQ-9 Depression Total Score: 5 10/11/19 8:58 AM CDT documented as of this encounter Care Teams Construction Flagger Relationship Specialty Start Date End Date Marija Edgar APRN HSE COORDINATOR PCP - General Nurse Practitioner 04/30/20 04/14/23 Esha Grimm PA-C [address] [place] [address] PCP - General Family Medicine 05/04/23 Lita Oseguera Personal Advocate & Liaison (PAL) 02/28/20 03/27/23 Marija Edgar APRN HSE COORDINATOR Assigned PCP 06/08/20 04/29/23 Keisha Dotson MD 909 [place] [address] Assigned Neuroscience Provider 06/04/20 04/01/23 [facility] [address] [place] [address] Pharmacist Pharmacist 04/17/21 Rain Galaviz PA-C [address] [place] [address] [address] [place] [address] Physician Systems Programmer Analyst Dermatology 04/28/21 Tavia Wyatt MD [address] [place] [address] [address] [facility] [address] Dermatology 07/14/21 Erica Farrell APRN HSE COORDINATOR [address] [place], [place] 946375 Nurse Practitioner Cardiovascular Disease 09/09/21 Rich Barrett MD [address] 814335 Physician Ophthalmology 01/21/22 Neil Kent MD 500 [place], [place] 644485 Dermatology 02/24/22 Diana Desir, [facility] [address] [place], [place] 058266 Assigned [place] Pharmacist 04/07/22 Livan Sharif MD [address], [email or web address] [address] [place] [address]35 Cardiovascular Disease 05/14/22 Catherine Cm MD [address] [facility]00 [place] 7[address]345 Cardiovascular Disease 07/21/22 Valery Veronica, PA-C [address] [place], [place] 601925 Physician Systems Programmer Analyst Dermatology 07/21/22 Catherine Cm MD [address] [facility]00 [place], [place] 267225 Assigned Heart and Vascular Provider 07/24/22 11/05/22 Brea Quinn APRN HSE COORDINATOR 500 [place], [place] 719895 Nurse Practitioner Dermatology 09/21/22 Brea Quinn APRN HSE COORDINATOR 6401 [facility] [place] 73[address]32 Assigned Surgical Provider 10/09/22 [place] [address] [address] [address] [place] [address] Assigned Musculoskeletal Provider 10/09/22 Livan Sharif MD [address], [facility] [[email or web address] [address] [place] [address] Assigned Heart and Vascular Provider 11/06/22 11/12/22 Catherine Cm MD [address] [place] 597035 Assigned Heart and Vascular Provider 11/13/22 05/27/23 Sydnie Martinez RN Personal Advocate & Liaison (PAL) Family Medicine 03/28/23 07/31/23 Alfonso Renteria MD 5775 [facility] 200 [place], [place] 120266 Assigned Neuroscience Provider 04/02/23 Cheng Todd PA-C [address] [place] [address] Assigned PCP 04/30/23 07/15/23 Radha Lomeli APRN HSE COORDINATOR [address] [place] [address] Assigned Heart and Vascular Provider 05/28/23 Jelena David OD [address] [facility] [place] [address] Ophthalmology 06/15/23 Pao Joseph, VJ Personal Advocate & Liaison (PAL) Nurse 08/01/23 Esha Grimm PA-C [address] [place] [address]97[address]83 Assigned PCP 07/16/23 Valery Veronica PA-C [address] [place] [address] Physician Systems Programmer Analyst Dermatology 09/19/23 Rey Tay MD [address] [place] [address] [phone] Gastroenterology 09/20/23 Rocky Zepeda DO [address] [place] [address] 289575 Physician Gastroenterology 09/20/23 Philip Dumont MD [address] [place] [address] 246095 Physician Ophthalmology 09/22/23 documented as of this encounter
--- OUTSIDE RECORDS SUMMARY | 2023-10-15 21:53 | XMS_ITS | Encounter Summary ---
Author Name Unknown Organization [facility] Address [address] [place] [address] Care Team Providers Care Syrup Mixer Helper Name Role Phone Lita Oseguera Unavailable Unavailable Marija Edgar APRN POWER SYSTEM DISPATCHER Primary Care Provider U mandaailMarija Callaway APRN, CNP Unavailable Unavail able Keisha Dotson MD Unavailable [phone] Diana Desir [facility] Unavailable [phone] Rain Galaviz PA-C Unavailable [phone] Tavia Wyatt MD Unavailable Unavailable Erica Farrell APRN POWER SYSTEM DISPATCHER Unavailable Rich Barrett MD Unavailable [phone] Neil Kent MD Unavailable Diana Desir [facility] Unavailable [phone] Livan Sharif MD Unavailable Catherine Cm MD Unavailable + Valery Veronica PA-C Unavailable [phone] Brea Quinn APRN POWER SYSTEM DISPATCHER Unavailable Brea Quinn APRN POWER SYSTEM DISPATCHER Unavailable [phone] Jose Francisco Johnson MD Unavailable Catherine Cm MD Unavailable + Sydnie Martinez RN Unavailable Unavailable Alfonso Renteria MD Unavailable [phone] Esha GrimmC Primary Care Provider Cheng ToddC Unavailable [phone] Armani Radha Stovall APRN POWER SYSTEM DISPATCHER Unavailable Jelena David OD Unavailable Pao Joseph RN Unavailable Unavailable Esha Grimm PA-C Unavailable [phone] Valery VeronicaC Unavailable Rey Tay MD Unavailable Rocky Zepeda DO Unavailable Philip Dumont MD Unavailable [phone] Encounter Details Date Type Department Care Team (Late st Contact Info) Description 01/10/2023 [facility] [address] [place] [phone] Lauren Claudio PA-C [address] [place] [address] Social History Tobacco Use Types Packs/Day [...] How often do you attend tenriism or oriental orthodox serv ices? Never 09/22/2021 Do you belong to any clubs o r organizations such as tenriism groups, unions, fraternal or athletic groups, [...] Answer Date Recorded PHQ-2 Score 1 10/11/2022 [facility] of Occupat ional Health - Occupational [...] slept in a senior care (including now)? No 09/22/2021 [place] Depression Scale Answer Date Recorded [place] Depression Score 5 01/14/2021 Last EPDS Self [...] suspected to have Coronavirus/COVID-19? No / Unsure 01/12/2023 2:21 PM CDT documented as of this encounter Miscellaneous Notes * Telephone Encounter - Julissa Benitez CMA - 02/03/2023 1:33 PM CDT Order faxed to number listed. Julissa Benitez CMA * Telephone Encounter - Lauren Claudio PA-C - 02/03/2023 11:59 AM CDT Please fax the order. * Telephone Encounter - Erica David MA - 02/03/2023 11:52 AM CDT Incoming call Chain Forming Machine Operator: Rosalva Kilbourne [facility] referral following up on [facility] information that is needed to be faxed at [phone] Erica David MA documented in this encounter Plan of Treatment Upcoming Encounters Date Type Department Care Team (Late st Contact Info) Description 10/25/2023 11:30 AM CDT Virtual Visit [facility]ology Clinic [address] 4th [place] [phone] [address], RD [address] [place] [address] 11/03/2023 8:00 AM CDT Office Visit [address] [phone] Valery Veronica PA-C [address] [place] [address] 11/29/2023 8:00 AM CDT Office Visit [facility] [address] [place] [phone] Esha Grmim PA-C [address] [place] [address] 01/02/2024 8:00 AM CDT Office Visit [facility] [place] [address] [place] [phone] Lauren Claudio PA-C [address] [place], [place] [phone] Kelli Perez MD [address] [place], [place] 628374 documented as of this encounter Visit Diagnoses Not on filedocumented in this encounter Additional Health Concerns Infection Onset Date Last Indicated Resolved Time Rule Out COVID-19 03/07/2023 03/07/2023 03/07/2023 1:20 PM CDT Assessment Noted Time PHQ-9 Depression Total Score: 5 10/11/19 8:58 AM CDT documented as of this encounter Care Teams Syrup Mixer Helper Relationship Specialty Start Date End Date Marija Edgar APRN POWER SYSTEM DISPATCHER PCP - General Nurse Practitioner 04/30/20 04/14/23 Esha Grimm PA-C [address] [place] [address] PCP - General Family Medicine 05/04/23 Lita Oseguera Personal Advocate & Liaison (PAL) 02/28/20 03/27/23 Marija Edgar APRN POWER SYSTEM DISPATCHER Assigned PCP 06/08/20 04/29/23 Keisha Dotson MD [address] [place] [address] Assigned Neuroscience Provider 06/04/20 04/01/23 Diana Desir, [facility] 3033 [place] [address] Pharmacist Pharmacist 04/17/21 Rain Galaviz PA-C [address] [place] [address] [address] [place] [address] Physician Transformation Specialist Dermatology 04/28/21 Tavia Wyatt MD [address] [place] [address] [place] [address] Dermatology 07/14/21 Erica Farrell APRN POWER SYSTEM DISPATCHER [address] [place] [address] Nurse Practitioner Cardiovascular Disease 09/09/21 Rich Barrett MD [address] 220635 Physician Ophthalmology 01/21/22 Neil Kent MD [address] [place] [address] 373285 Dermatology 02/24/22 Diana Desir, [facility] [address] [place] [address] 359256 Assigned [place] Pharmacist 04/07/22 Livan Sharif MD [address], [facility]00 [place], [place] 4014[address] Cardiovascular Disease 05/14/22 Catherine Cm MD [address] [facility]00 [place] 966745 Cardiovascular Disease 07/21/22 Valery Veronica, PA-C [address] [place] [address] 901395 Physician Transformation Specialist Dermatology 07/21/22 Brea Quinn APRN POWER SYSTEM DISPATCHER 500 [place], [place] 850675 Nurse Practitioner Dermatology 09/21/22 Brea Quinn APRN POWER SYSTEM DISPATCHER 6401 [place], [place] 767632 Assigned Surgical Provider 10/09/22 [place] [address] [facility] 300 [place], [place] 581507 Assigned Musculoskeletal Provider 10/09/22 Catherine Cm MD [address] [place] [address] Assigned Heart and Vascular Provider 11/13/22 05/27/23 Sydnie Martinez, RN Personal Advocate & Liaison (PAL) Family Medicine 03/28/23 07/31/23 Alfonso Renteria MD [address] [facility] 200 [place], [place] 800796 Assigned Neuroscience Provider 04/02/23 Cheng Todd PA-C [address] [place] [address] Assigned PCP 04/30/23 07/15/23 Radha Lomeli APRN POWER SYSTEM DISPATCHER [address] [facility] [address] [place] 003125 Assigned Heart and Vascular Provider 05/28/23 Jelena David OD [address] [facility] [place] [address] Ophthalmology 06/15/23 Pao Joseph, RN Personal Advocate & Liaison (PAL) Nurse 08/01/23 Esha Grimm PA-C [address] [place] [address]119083 Assigned PCP 07/16/23 Valery Veronica PA-C 909 [place], [place] 209085 Physician Transformation Specialist Dermatology 09/19/23 Rey Tay MD [address] [place] [address] 454185 Gastroenterology 09/20/23 Rocky Zepeda DO [address] [place] [address] 711255 Physician Gastroenterology 09/20/23 Philip Dumont MD [address] [place] [address] 566985 Physician Ophthalmology 09/22/23 documented as of this encounter
--- OUTSIDE RECORDS SUMMARY | 2023-10-15 21:54 | XMS_ITS | Encounter Summary ---
Author Name Unknown Organization [facility] Address [address] [place] [address] Care Team Providers Care Cryptologic Technician Name Role Phone OumarAlee layyn Unavailable Unavailable Marija Edgar APRN MACHINIST MECHANIC Primary Care Provider U mandaailMarija Callaway APRN MACHINIST MECHANIC Unavailable Unavail able Keisha Dotson MD Unavailable [phone] Diana Desir [facility] Unavailable [phone] Rain Galaviz PA-C Unavailable [phone] Tavia Wyatt MD Unavailable Unavailable Erica Farrell APRN MACHINIST MECHANIC Unavailable Rich Barrett MD Unavailable [phone] Neil Kent MD Unavailable Diana Desir [facility] Unavailable [phone] Livan Sharif MD Unavailable Catherine Cm MD Unavailable + Valery Veronica PA-C Unavailable [phone] Catherine Cm MD Unavailable + Brea Quinn APRN MACHINIST MECHANIC Unavailable [phone] Brea Quinn APRN MACHINIST MECHANIC Unavailable [phone] Jose Francisco Johnson MD Unavailable Livan Sharif MD Unavailable Catherine Cm MD Unavailable + Sydnie Martinez RN Unavailable Unavailable Alfonso Renteria MD Unavailable [phone] Esha Grimm PA-C Primary Care Provider Cheng Todd PA-C Unavailable Armani Radha Stovall APRN MACHINIST MECHANIC Unavailable Jelena David OD Unavailable Pao Joseph RN Unavailable Unavailable Esha GrimmC Unavailable [phone] Valery Veronica PA-C Unavailable Rey Tay MD Unavailable Rocky Zepeda DO Unavailable Philip Dumont MD Unavailable [phone] Encounter Details Date Type Department Care Team (Late st Contact Info) Description 10/22/2022 [facility]ice [facility] [address] [place], [place] [phone] [place] [address] [facility] 300 [place], [place] [address] Social History Tobacco Use Types Packs/Day Years [...] How often do you attend buddhism or anabaptism serv ices? Never 09/22/2021 Do you belong [...] Answer Date Recorded PHQ-2 Score 1 10/11/2022 [facility] [place] of Occupat ional Health - Occupational Stress [...] or slept in a assisted (including now)? No 09/22/2021 [place] Depression Scale Answer Date Recorded [place] Depression Score 5 01/14/2021 Last EPDS Self [...] Miscellaneous Notes * Telephone Encounter - Mary Easley - 10/22/2022 4:13 PM CDT See patient MyChart message as an FYI. Yesterday had cervical and lumbar spine MRIs. Per last office visit note: Please call my office to schedule follow-up telephone visit 2 days after your MRI is complete to discuss results and next of treatment options. Patient has follow-up appointment 10/27/22 to discuss Kristina Easley ATC documented in this encounter Plan of Treatment Upcoming Encounters Date Type Department Care Team (Late st Contact Info) Description 10/25/2023 11:30 AM CDT Virtual Visit [facility] [address] 4th [place] [phone] Nelly Mesa, RD [address] [place] [address] 11/03/2023 8:00 AM CDT Office Visit [facility] [address] [place] [phone] Valery Veronica PA-C [address] [place] [address] 11/29/2023 8:00 AM CDT Office Visit [address] [phone] Esha Grimm PA-C [address] [place] [phone] 01/02/2024 8:00 AM CDT [facility] Visit [facility] [address] [place] [phone] Lauren Claudio PA-C [address] [place], [place] [phone] Kelli Perez MD [address] [place] [address] documented as of this encounter Visit Diagnoses Not on filedocumented in this encounter Additional Health Concerns Infection Onset Date Last Indicated Resolved Time Rule Out COVID-19 11/10/2022 11/10/2022 11/11/2022 12:17 PM CDT Rule Out COVID-19 03/07/2023 03/07/2023 03/07/2023 1:20 PM CDT Assessment Noted Time PHQ-9 Depression Total Score: 5 10/11/19 8:58 AM CDT documented as of this encounter Care Teams Cryptologic Technician Relationship Specialty Start Date End Date Marija Edgar APRN MACHINIST MECHANIC PCP - General Nurse Practitioner 04/30/20 04/14/23 Esha Grimm PA-C [address] [place] [phone] PCP - General Family Medicine 05/04/23 Lita Oseguera Personal Advocate & Liaison (PAL) 02/28/20 03/27/23 Marija Edgar APRN MACHINIST MECHANIC Assigned PCP 06/08/20 04/29/23 Keisha Dotson MD 909 [place] [address] Assigned Neuroscience Provider 06/04/20 04/01/23 Diana Desir, [facility] [address] [place] [address] Pharmacist Pharmacist 04/17/21 Rain Galaviz PA-C [address] [facility] [address] [facility] [address] Physician Photographic Editor Dermatology 04/28/21 Tavia Wyatt MD [address] [place] [address] [address] [facility] [place] [address] Dermatology 07/14/21 Erica Farrell APRN MACHINIST MECHANIC [address] [place] [address] Nurse Practitioner Cardiovascular Disease 09/09/21 Rich Barrett MD [address] [place] [address] 530595 Physician Ophthalmology 01/21/22 Neil Kent MD [address] [place] [address] 133695 Dermatology 02/24/22 [facility] [address] [place] [address] Assigned MTM Pharmacist 04/07/22 Livan Sharif MD [address] [place] [address] Cardiovascular Disease 05/14/22 Catherine Cm MD [address] [place] [address] Cardiovascular Disease 07/21/22 Valery Veronica, PA-C [address] [place] [address] 877375 Physician Photographic Editor Dermatology 07/21/22 Catherine Cm MD [address] [place] 793565 Assigned Heart and Vascular Provider 07/24/22 11/05/22 Brea Quinn APRN MACHINIST MECHANIC 500 [place] [address] Nurse Practitioner Dermatology 09/21/22 Brea Quinn APRN MACHINIST MECHANIC 6401 [place] [address] Assigned Surgical Provider 10/09/22 [place] [address] [address] [facility] 300 [place] [address] Assigned Musculoskeletal Provider 10/09/22 Livan Sharif MD [address], [facility] [address] [place] [address] Assigned Heart and Vascular Provider 11/06/22 11/12/22 Catherine Cm MD [address] [facility] [address] [place] [address] Assigned Heart and Vascular Provider 11/13/22 05/27/23 Sydnie Martinez RN Personal Advocate & Liaison (PAL) Family Medicine 03/28/23 07/31/23 Alfonso Renteria MD [address] [facility] 200 [place], [place] 630916 Assigned Neuroscience Provider 04/02/23 Cheng Todd PA-C [address] [place], [place] [phone] Assigned PCP 04/30/23 07/15/23 Radha Lomeli, TALENT ACQUISITION LEAD MACHINIST MECHANIC 6405 [facility] [address] [place], [place] 756595 Assigned Heart and Vascular Provider 05/28/23 Jelena David OD [address] [facility] [place] [address] MD Ophthalmology 06/15/23 Pao Joseph, VJ Personal Advocate & Liaison (PAL) Nurse 08/01/23 Esha Grimm PA-C [address] [place] [phone] Assigned PCP 07/16/23 Valery Veronica PAUcheC [address] [place] [address] 273775 Physician Photographic Editor Dermatology 09/19/23 Rey Tay MD [address] [place] [address] 984965 Gastroenterology 09/20/23 Rocky Zepeda DO [address] [place] [address] 626785 Physician Gastroenterology 09/20/23 Philip Dumont MD [address] [place] [address] 112055 Physician Ophthalmology 09/22/23 documented as of this encounter
--- OUTSIDE RECORDS SUMMARY | 2023-10-15 21:54 | XMS_ITS | Encounter Summary ---
Author Name Unknown Organization [facility] Address [address] [place] [address] Care Team Providers Care Talent Engineer Name Role Phone Lita Oseguera Unavailable Unavailable Marija Edgar APRN MECHANIC AND WELDER Primary Care Provider U mandaailMarija Callaway APRN MECHANIC AND WELDER Unavailable Unavail able Keisha Dotson MD Unavailable [phone] Diana Desir [facility] Unavailable Rain Galaviz-C Unavailable Tavia Wyatt MD Unavailable Unavailable Erica Farrell APRN MECHANIC AND WELDER Unavailable Rich Barrett MD Unavailable [phone] Neil Kent MD Unavailable Roney Story DPM Unavailable [phone] Diana Desir [facility] Unavailable [phone] Jelena David OD Unavailable [phone] Livan Sharif MD Unavailable Livan Sharif MD Unavailable Catherine Cm MD Unavailable + Valery Veronica PA-C Unavailable [phone] Catherine Cm MD Unavailable + Johnny Murillo MD Unavailable [phone] Brea Quinn DIRECTOR OF PROVIDER RELATIONS MECHANIC AND WELDER Unavailable [phone] Brea Quinn DIRECTOR OF PROVIDER RELATIONS MECHANIC AND WELDER Unavailable Jose Francisco Johnson MD Unavailable Livan Sharif MD Unavailable Catherine Cm MD Unavailable + Sydnie Martinez RN Unavailable Unavailable Alfonso Renteria MD Unavailable [phone] Esha Grimm PA-C Primary Care Provider Cheng Todd PA-C Unavailable Radha Lomeli DIRECTOR OF PROVIDER RELATIONS MECHANIC AND WELDER Unavailable Jelena David OD Unavailable Pao Joseph RN Unavailable Unavailable Esha Grimm PA-C Unavailable [phone] Valery Veronica PA-C Unavailable [phone] Rey Tay MD Unavailable Rokcy Zepeda DO Unavailable Philip Dumont MD Unavailable [phone] Encounter Details Date Type Department Care Team (Late st Contact Info) Description 07/20/2022 [facility] [address] [facility] [address] [place] [address] Livan Sharif MD [address] [place] [address] Social History Tobacco Use Types Packs/Day Years [...] How often do you attend bahai or baptism serv ices? Never 09/22/2021 Do you belong [...] hard 09/22/2021 PHQ-2 Answer Date Recorded PHQ-2 Total Score (Adult) - Positive if 3 or more points; Administer PHQ-9 if positive 1 05/13/2022 [facility] [place] of Occupat ional Health - Occupational Stress [...] slept in a nursing home (including now)? No 09/22/2021 [place] Depression Scale Answer Date Recorded [place] Depression Score 5 01/14/2021 Last EPDS Self [...] suspected to have Coronavirus/COVID-19? No / Unsure 07/23/2022 6:45 AM MODELING TEACHER documented as of this encounter Plan of Treatment Upcoming Encounters Date Type Department Care Team (Late st Contact Info) Description 10/25/2023 11:30 AM CDT Virtual Visit [facility] [address] [place] [phone] [address], [address] [place] [address] 11/03/2023 8:00 AM CDT Office Visit [address] [phone] Valery Veronica PA-C [address] [place] [address] 11/29/2023 8:00 AM CDT Office Visit [facility] [address] [place] [phone] Esha Grimm PA-C [address] [place] [phone] 01/02/2024 8:00 AM CDT Office Visit [facility] [address] [place] [phone] Lauren Claudio PA-C [address] [place] [address] Kelli Perez MD [address] [place] [address] 143024 documented as of this encounter Visit Diagnoses Not on filedocumented in this encounter Additional Health Concerns Infection Onset Date Last Indicated Resolved Time Rule Out COVID-19 11/10/2022 11/10/2022 11/11/2022 12:17 PM CDT Rule Out COVID-19 03/07/2023 03/07/2023 03/07/2023 1:20 PM CDT Assessment Noted Time PHQ-9 Depression Total Score: 3 05/13/20 22 8:49 PM CDT documented as of this encounter Care Teams Talent Engineer Relationship Specialty Start Date End Date Marija Edgar APRN MECHANIC AND WELDER PCP - General Nurse Practitioner 04/30/20 04/14/23 Esha Grimm PA-C [address] [place] [address] PCP - General Family Medicine 05/04/23 Lita Oseguera Personal Advocate & Liaison (PAL) 02/28/20 03/27/23 Marija Edgar APRN MECHANIC AND WELDER Assigned PCP 06/08/20 04/29/23 Keisha Dotson MD 909 [place] [address] Assigned Neuroscience Provider 06/04/20 04/01/23 Diana Desir, [facility] [address] [place] [address] Pharmacist Pharmacist 04/17/21 Rain Galaviz PA-C [address] [place] [address] [address] [place] [address] Physician Adult Specialist Dermatology 04/28/21 Tavia Wyatt MD [address] [place] [address] [place] [address] Dermatology 07/14/21 Erica Farrell APRN MECHANIC AND WELDER [address] [place] 03[address]55 Nurse Practitioner Cardiovascular Disease 09/09/21 Rich Barrett MD [address] [facility] [address] [place], [place] 261275 Physician Ophthalmology 01/21/22 Neil Kent MD 500 [place], [place] 534115 Dermatology 02/24/22 [place] [address] [address] [place], [place] 432967 Assigned Musculoskeletal Provider 03/20/22 08/13/22 [facility] [address] [place], [place] 832996 Assigned MTM Pharmacist 04/07/22 Jelena David OD [address] [facility] [address] Assigned Surgical Provider 05/08/22 10/08/22 Livan Sharif MD [address] [place] [address] Cardiovascular Disease 05/14/22 Livan Sharif MD [address] [place] [address] Assigned Heart and Vascular Provider 06/12/22 07/23/22 Catherine Cm MD [address] [place] [address] Cardiovascular Disease 07/21/22 Valery Veronica, PA-C [address] [place] [address] Physician Adult Specialist Dermatology 07/21/22 Catherine Cm MD [address] [facility] [address] [place] 547715 Assigned Heart and Vascular Provider 07/24/22 11/05/22 Johnny Murillo MD [address] [place] [address] 889124 Assigned Musculoskeletal Provider 08/14/22 10/08/22 Brea Quinn APRN MECHANIC AND WELDER [address] [place] [address] 626905 Nurse Practitioner Dermatology 09/21/22 Brea Quinn APRN MECHANIC AND WELDER [address] [place] [address] [place] [address] Assigned Surgical Provider 10/09/22 [place] [address] [place] [address] 767147 Assigned Musculoskeletal Provider 10/09/22 Livan Sharif MD [address] [place] [address] Assigned Heart and Vascular Provider 11/06/22 11/12/22 Catherine Cm MD [address] [place] 012085 Assigned Heart and Vascular Provider 11/13/22 05/27/23 Sydnie Martinez RN Personal Advocate & Liaison (PAL) Family Medicine 03/28/23 07/31/23 Alfonso Renteria MD [address] [facility] 200 [place] [address] Assigned Neuroscience Provider 04/02/23 Cheng Todd PA-C [address] [place], [place] [phone] Assigned PCP 04/30/23 07/15/23 Radha Lomeli, ARLENE MECHANIC AND WELDER [address] [place] [address] Assigned Heart and Vascular Provider 05/28/23 Jelena David OD [address] [facility] [address] Ophthalmology 06/15/23 Pao Joseph RN Personal Advocate & Liaison (PAL) Nurse 08/01/23 Esha Grimm PA-C [address] [place] [phone] Assigned PCP 07/16/23 Valery Veronica PA-C 909 [place], [place] 606445 Physician Adult Specialist Dermatology 09/19/23 Rey Tay MD 909 [place] [address] MD Gastroenterology 09/20/23 Rocky Zepeda DO [address] [place] [address] Physician Gastroenterology 09/20/23 Philip Dumont MD [address] [place] [address] Physician Ophthalmology 09/22/23 documented as of this encounter
--- OUTSIDE RECORDS SUMMARY | 2023-10-15 21:54 | XMS_ITS | Encounter Summary ---
Author Name Unknown Organization [facility] Address [address] [place] [address] Care Team Providers Care Qualification Engineer Name Role Phone Lita Oseguera Unavailable Unavailable Marija Edgar APRN CIRCUS SUPERVISOR Primary Care Provider U mandaailMarija Callaway APRN CIRCUS SUPERVISOR Unavailable Unavail able Keisha Dotson MD Unavailable [phone] Diana Desir [facility] Unavailable [phone] Rain Galaviz-C Unavailable Tavia Wyatt MD Unavailable Unavailable Erica Farrell APRN CIRCUS SUPERVISOR Unavailable Rich Barrett MD Unavailable [phone] Neil Kent MD Unavailable Roney Story DPM Unavailable [phone] Diana Desir [facility] Unavailable [phone] Jelena David OD Unavailable Livan Sharif MD Unavailable Livan Sharif MD Unavailable Catherine Cm MD Unavailable + Valery Veronica PA-C Unavailable [phone] Catherine Cm MD Unavailable + Johnny Murillo MD Unavailable [phone] Brea Quinn HIGH PRESSURE OPERATOR CIRCUS SUPERVISOR Unavailable [phone] Brea Quinn HIGH PRESSURE OPERATOR CIRCUS SUPERVISOR Unavailable Jose Francisco Johnson MD Unavailable Livan Sharif MD Unavailable Catherine Cm MD Unavailable + Sydnie Martinez RN Unavailable Unavailable Alfonso Renteria MD Unavailable [phone] Esha Grimm PA-C Primary Care Provider Cheng Todd PA-C Unavailable Radha Lomeli HIGH PRESSURE OPERATOR CIRCUS SUPERVISOR Unavailable [phone] Jelena David OD Unavailable Pao Joseph RN Unavailable Unavailable Esha Grimm PA-C Unavailable [phone] Valery Veronica PA-C Unavailable Rey Tay MD Unavailable Rocky Zepeda DO Unavailable Philip Dumont MD Unavailable [phone] Encounter Details Date Type Department Care Team (Late st Contact Info) Description 07/07/2022 [facility] Heart [facility] [address] [facility] [address] [place] [address] Livna Sharif MD [address] [place] [address] Social History Tobacco Use Types Packs/Day Years [...] How often do you attend sabianist or jehovah's witness serv ices? Never 09/22/2021 Do you belong [...] points; Administer PHQ-9 if positive 1 05/13/2022 [facility] [place] of Occupat ional Health - Occupational Stress [...] or slept in a chcf (including now)? No 09/22/2021 [place] Depression Scale Answer Date Recorded [place] Depression Score 5 01/14/2021 Last EPDS [...] suspected to have Coronavirus/COVID-19? No / Unsure 06/25/2022 8:44 AM AGRONOMY INTERNSHIP documented as of this encounter Plan of Treatment Upcoming Encounters Date Type Department Care Team (Late st Contact Info) Description 10/25/2023 11:30 AM CDT Virtual Visit [facility] [address] [place] [phone] [address], [address] [place] [address] 11/03/2023 8:00 AM CDT Office Visit [address] [phone] Valery Veronica PA-C [address] [place] [address] 11/29/2023 8:00 AM CDT Office Visit [facility] [address] [place] [phone] Esha Grimm PA-C [address] [place] [phone] 01/02/2024 8:00 AM CDT Office Visit [facility] [address] [place] [phone] Lauren Claudio PA-C [address] [place] [address] Kelli Perez MD [address] [place] [address] 912644 documented as of this encounter Visit Diagnoses Not on filedocumented in this encounter Additional Health Concerns Infection Onset Date Last Indicated Resolved Time Rule Out COVID-19 11/10/2022 11/10/2022 11/11/2022 12:17 PM CDT Rule Out COVID-19 03/07/2023 03/07/2023 03/07/2023 1:20 PM CDT Assessment Noted Time PHQ-9 Depression Total Score: 3 05/13/20 22 8:49 PM CDT documented as of this encounter Care Teams Qualification Engineer Relationship Specialty Start Date End Date Marija Edgar APRN CIRCUS SUPERVISOR PCP - General Nurse Practitioner 04/30/20 04/14/23 Esha Grimm PA-C [address] [place] [address]83 PCP - General Family Medicine 05/04/23 Lita Oseguera Personal Advocate & Liaison (PAL) 02/28/20 03/27/23 Marija Edgar APRN CIRCUS SUPERVISOR Assigned PCP 06/08/20 04/29/23 Keisha Dotson MD 909 [place] [address] Assigned Neuroscience Provider 06/04/20 04/01/23 Diana Desir, [facility] [address] [place] [address] Pharmacist Pharmacist 04/17/21 Rain Galaviz PA-C [address] [place] [address] [address] [place] [address] Physician Marble And Granite Polisher Dermatology 04/28/21 Tavia Wyatt MD [address] [place] [address] [place]UT[place] [address] Dermatology 07/14/21 Erica Farrell APRN CIRCUS SUPERVISOR [address] [place] 392065 Nurse Practitioner Cardiovascular Disease 09/09/21 Rich Barrett MD 516 [facility] 9A [place], [place] 944[address] Physician Ophthalmology 01/21/22 Neil Kent MD 500 [place], [place] 056665 Dermatology 02/24/22 [place] DPM [address] [facility] [address] [place], [place] 561847 Assigned Musculoskeletal Provider 03/20/22 08/13/22 [facility] [address] [place], [place] 183136 Assigned MTM Pharmacist 04/07/22 Jelena David OD [address] [facility] [place] [address] Assigned Surgical Provider 05/08/22 10/08/22 Livan Sharif MD [address] [place] [address] Cardiovascular Disease 05/14/22 Livan Shraif MD [address] [place] [address] Assigned Heart and Vascular Provider 06/12/22 07/23/22 Catherine Cm MD [address] [place] [address] Cardiovascular Disease 07/21/22 Valery Veronica, PA-C [address] [place] [address] Physician Marble And Granite Polisher Dermatology 07/21/22 Cathreine Cm MD [address] [facility] [address] [place] [address]275 Assigned Heart and Vascular Provider 07/24/22 11/05/22 Johnny Murillo MD [address] [place] [address] 262684 Assigned Musculoskeletal Provider 08/14/22 10/08/22 Brea Quinn APRN CIRCUS SUPERVISOR [address] [place] [address] 860275 Nurse Practitioner Dermatology 09/21/22 Brea Quinn APRN CIRCUS SUPERVISOR [address] [place] [address] [place] [address] Assigned Surgical Provider 10/09/22 [place] [address] 103007 Assigned Musculoskeletal Provider 10/09/22 Livan Sharif MD [address] [place] [address] Assigned Heart and Vascular Provider 11/06/22 11/12/22 Catherine Cm MD [address] [place] 54[address] Assigned Heart and Vascular Provider 11/13/22 05/27/23 Sydnie Martinez RN Personal Advocate & Liaison (PAL) Family Medicine 03/28/23 07/31/23 Alfonso Renteria MD [address] [facility] 200 [place] [address] Assigned Neuroscience Provider 04/02/23 Cheng Todd PA-C [address] [place], [place] 63905124 Assigned PCP 04/30/23 07/15/23 Radha Lomeli, ARLENE CIRCUS SUPERVISOR [address] [place] [address] Assigned Heart and Vascular Provider 05/28/23 Jelena David OD [address] [facility] [place] [address] Ophthalmology 06/15/23 Pao Joseph RN Personal Advocate & Liaison (PAL) Nurse 08/01/23 Esha Grimm PA-C [address] [place] [phone] Assigned PCP 07/16/23 Valery Veronica PA-C 909 [place], [place] 580435 Physician Marble And Granite Polisher Dermatology 09/19/23 Rey Tay MD 909 [place] [address] MD Gastroenterology 09/20/23 Rocky Zepeda DO [address] [place] [address] Physician Gastroenterology 09/20/23 Philip Dumont MD [address] [place] [address] Physician Ophthalmology 09/22/23 documented as of this encounter
--- OUTSIDE RECORDS SUMMARY | 2023-10-15 21:54 | XMS_ITS | Encounter Summary ---
Author Name Unknown Organization [facility] Address [address] [place] [address] Care Team Providers Care Horse Race Timer Name Role Phone Lita Oseguera Unavailable Unavailable Marija Edgar APRN TEAM COORDINATOR Primary Care Provider U mandaailMarija Callaway APRN TEAM COORDINATOR Unavailable Unavail able Keisha Dotson MD Unavailable [phone] Diana Desir [facility] Unavailable [phone] Rain Galaviz PA-C Unavailable Tavia Wyatt MD Unavailable Unavailable Erica Farrell APRN TEAM COORDINATOR Unavailable Rich Barrett MD Unavailable [phone] Neil Kent MD Unavailable Roney Story DPM Unavailable [phone] Diana Desir [facility] Unavailable [phone] Jelena David OD Unavailable [phone] Galo Burrell MD Unavailable Unavailable Livan Sharif MD Unavailable Livan Sharif MD Unavailable Catherine Cm MD Unavailable + Valery Veronica PA-C Unavailable [phone] Catherine Cm MD Unavailable + Johnny Murillo MD Unavailable [phone] Brea Quinn FLAG DECORATOR TEAM COORDINATOR Unavailable [phone] Brea Quinn FLAG DECORATOR TEAM COORDINATOR Unavailable Jose Francisco Johnson MD Unavailable Livan Sharif MD Unavailable Catherine Cm MD Unavailable + Sydnie Martinez RN Unavailable Unavailable Alfonso Renteria MD Unavailable [phone] Esha Grimm PA-C Primary Care Provider Cheng Todd PA-C Unavailable [phone] Radha Lomeli FLAG DECORATOR TEAM COORDINATOR Unavailable Jelena David Radha OD Unavailable Pao Joseph RN Unavailable Unavailable Esha Grimm PA-C Unavailable [phone] Valery Veronica PA-C Unavailable [phone] Rey Tay MD Unavailable Rocky Zepeda DO Unavailable Philip Dumont MD Unavailable Encounter Details Date Type Department Care Team (Late st Contact Info) Description 05/11/2022 [facility] [address] [address] Diana Desir, [facility] [address] [place], [place] [phone] Social History Tobacco Use Types Packs/Day Years [...] How often do you attend presybeterian or sabianism serv ices? Never 09/22/2021 Do you belong to any clubs o r organizations such as presybeterian groups, unions, fraternal or athletic groups, [...] points; Administer PHQ-9 if positive 1 05/13/2022 [place] of Occupat ional Health - Occupational Stress [...] slept in a care home (including now)? No 09/22/2021 [place] Depression Scale Answer Date Recorded [place] Depression Score 5 01/14/2021 Last EPDS Self [...] Recorded In the last 10 days, have delvin u been in contact with someone who was confirmed or suspected to have Coronavirus/COVID-19? No / Unsure 05/13/2022 3:37 PM CDT documented as of this encounter Plan of Treatment Upcoming Encounters Date Type Department Care Team (Late st Contact Info) Description 10/25/2023 11:30 AM CDT Virtual Visit [facility] [address]th [place] [phone] [address], [address] [place] [address] 11/03/2023 8:00 AM CDT Office Visit [address] [phone] Valery Veronica PA-C [address] [place] [address] 11/29/2023 8:00 AM CDT Office Visit [facility] [address] [place] [phone] Esha Grimm PA-C [address] [place] [phone] 01/02/2024 8:00 AM CDT Office [facility] [address] [place] [phone] Lauren Claudio PA-C [address] [place], [place] [phone] Kelli Perez MD [address] 826144 documented as of this encounter Visit Diagnoses Not on filedocumented in this encounter Additional Health Concerns Infection Onset Date Last Indicated Resolved Time Rule Out COVID-19 05/17/2022 05/17/2022 05/17/2022 10:20 PM TRANSPORTATION BROKER Rule Out COVID-19 06/09/2022 06/09/2022 06/09/2022 9:35 AM TRANSPORTATION BROKER COVID-19 06/09/2022 06/09/2022 06/30/2022 11:4 1 PM TRANSPORTATION BROKER Rule Out COVID-19 11/10/2022 11/10/2022 11/11/2022 12:17 PM CDT Rule Out COVID-19 03/07/2023 03/07/2023 03/07/2023 1:20 PM CDT Assessment Noted Time PHQ-9 Depression Total Score: 3 05/13/20 8:49 PM CDT documented as of this encounter Care Teams Horse Race Timer Relationship Specialty Start Date End Date Marija Edgar APRN TEAM COORDINATOR PCP - General Nurse Practitioner 04/30/20 04/14/23 Esha Grimm PA-C [address] [place] [address]685683 PCP - General Family Medicine 05/04/23 Lita Oseguera Personal Advocate & Liaison (PAL) 02/28/20 03/27/23 Marija Edgar APRN TEAM COORDINATOR Assigned PCP 06/08/20 04/29/23 Keisha Dotson MD 909 [place], [place] 437175 Assigned Neuroscience Provider 06/04/20 04/01/23 Diana Desir [facility] 3033 [place], [place] 257776 Pharmacist Pharmacist 04/17/21 Rain Galaviz PA-C [address] [place] [address] [place] [address] Physician Infrastructure Design Engineer Dermatology 04/28/21 Tavia Wyatt MD [address] [place] [address] EN[place] KNUTSON [address] Dermatology 07/14/21 Erica Farrell APRN TEAM COORDINATOR [address] [place] [address] Nurse Practitioner Cardiovascular Disease 09/09/21 Rich Barrett MD [address] 747965 Physician Ophthalmology 01/21/22 Neil Kent MD 500 [place], [place] [address]0115 Dermatology 02/24/22 Roney Story DPM [address] [facility] [address] [place] [address] Assigned Musculoskeletal Provider 03/20/22 08/13/22 Diana Desir, [facility] [address] [place], [place] 343146 Assigned MTM Pharmacist 04/07/22 Jelena David OD [address] [facility] [place] [address] Assigned Surgical Provider 05/08/22 10/08/22 Galo Burrell MD Assigned Heart and Vascular Provider 04/17/22 06/11/22 Livan Sharif MD [address] [place] [address] Cardiovascular Disease 05/14/22 Livan Sharif MD [address] [place] [address] Assigned Heart and Vascular Provider 06/12/22 07/23/22 Catherine Cm MD [address] [place] [address] Cardiovascular Disease 07/21/22 Valery Veronica, PA-C [address] [place] [address] 031415 Physician Infrastructure Design Engineer Dermatology 07/21/22 Catherine Cm MD [address] [place] [address] Assigned Heart and Vascular Provider 07/24/22 11/05/22 Johnny Murillo MD [address] [place] [address] 706814 Assigned Musculoskeletal Provider 08/14/22 10/08/22 Brea Quinn APRN TEAM COORDINATOR [address] [place] [address] 039845 Nurse Practitioner Dermatology 09/21/22 Brea Quinn APRN TEAM COORDINATOR [address] [place] [address] [place] 684402 Assigned Surgical Provider 10/09/22 [place] [address] [address] [place] [address] Assigned Musculoskeletal Provider 10/09/22 Livan Sharif MD [address] [place] [address] Assigned Heart and Vascular Provider 11/06/22 11/12/22 Catherine Cm MD [address] [place] [address] Assigned Heart and Vascular Provider 11/13/22 05/27/23 Sydnie Martinez RN Personal Advocate & Liaison (PAL) Family Medicine 03/28/23 07/31/23 Alfonso Renteria MD 5775 [facility] 200 [place] [address] Assigned Neuroscience Provider 04/02/23 Cheng Todd PA-C [address] [place] [address] Assigned PCP 04/30/23 07/15/23 Radha Lomeli, ARLENE TEAM COORDINATOR [address] [place] [address] Assigned Heart and Vascular Provider 05/28/23 Jelena David OD [address] [place] [address] Ophthalmology 06/15/23 Pao Joseph RN Personal Advocate & Liaison (PAL) Nurse 08/01/23 sEha Grimm PA-C [address] [place] [address]950[address] Assigned PCP 07/16/23 Valery Veronica PA-C [address] [place] [address] 018645 Physician Infrastructure Design Engineer Dermatology 09/19/23 Rey Tay MD [address] [place] [address] 578425 Gastroenterology 09/20/23 Rocky Zepeda DO [address] [place] [address] Physician Gastroenterology 09/20/23 Philip Dumont MD [address] [place] [address] Physician Ophthalmology 09/22/23 documented as of this encounter
--- OUTSIDE RECORDS SUMMARY | 2023-10-15 21:54 | XMS_ITS | Encounter Summary ---
Author Name Unknown Organization [place] Address [address] [place] [address] Care Team Providers Care Vice President Payer Name Role Phone Lita Oseguera Unavailable Unavailable Marija Edgar APRN DOPE MIXER Primary Care Provider U mnadaailMarija Callaway APRN DOPE MIXER Unavailable Unavail able Keisha Dotson MD Unavailable [phone] [facility] Unavailable Rain Galaviz-C Unavailable Tavia Wyatt MD Unavailable Unavailable Erica Farrell APRN DOPE MIXER Unavailable Rich Barrett MD Unavailable [phone] Neil Kent MD Unavailable Roney Story DPM Unavailable [phone] [facility] Unavailable [phone] Jelena David OD Unavailable Livan Sharif MD Unavailable Livan Sharif MD Unavailable Catherine Cm MD Unavailable + Valery Veronica PA-C Unavailable [phone] Catherine Cm MD Unavailable + Johnny Murillo MD Unavailable [phone] Brea Quinn POND SUPERVISOR DOPE MIXER Unavailable [phone] Brea Quinn POND SUPERVISOR DOPE MIXER Unavailable [phone] Jose Francisco Johnson MD Unavailable Livan Sharif MD Unavailable Catherine Cm MD Unavailable + Sydnie Martinez RN Unavailable Unavailable Alfonso Renteria MD Unavailable [phone] Esha Grimm PA-C Primary Care Provider Cheng Todd PA-C Unavailable Radha Lomeli POND SUPERVISOR DOPE MIXER Unavailable Jelena David OD Unavailable Pao Joseph RN Unavailable Unavailable Esha Grimm PA-C Unavailable [phone] Valery Veronica PA-C Unavailable Rey Tay MD Unavailable Rocky Zepeda DO Unavailable Philip Dumont MD Unavailable [phone] Reason for Visit * Reason Onset Date Comments Appointment 06/14/2022 Stress test and monitor on the same day Encounter Details Date Type Department Care Team (Late st Contact Info) Description 06/14/2022 [facility] [address] [facility] [address] [place] [address] Livan Sharif MD [address] [facility] [address] [place] [address] Appointment (Stress test and monitor on the same day) Social History Tobacco Use Types Packs/Day Years [...] How often do you attend muslim or sikh serv ices? Never 09/22/2021 Do you belong to any clubs o r organizations such as muslim groups, unions, fraternal or athletic groups, [...] points; Administer PHQ-9 if positive 1 05/13/2022 [facility] - [...] in a chcf (including now)? No 09/22/2021 Osage Depression Scale Answer Date Recorded Osage Depression Score 5 01/14/2021 Last EPDS Self [...] was confirmed or suspected to have Coronavirus/COVID-19? Yes 06/16/2022 12:32 PM REVIEW CONSULTANT documented as of this encounter Miscellaneous Notes * Telephone Encounter - Amalia Matute MA - 06/14/2022 9:30 AM CST [facility] Call Center Phone Message May a detailed message be left on voicemail: yes Reason for Call: Other: Pt is needing to reschedule her stress test and ziopatch monitor on the same day. Fridays work best or at 3:30. Please call pt back to schedule. Thank you Action Taken: Message routed to: Other: Cardiology Travel Screening: Not Applicable Thank you! [facility] EW CONSULTANT documented in this encounter Plan of Treatment Upcoming Encounters Date Type Department Care Team (Late st Contact Info) Description 10/25/2023 11:30 AM CDT Virtual Visit [facility] [address] [place] [phone] Nelly Mesa, RD [address] [place] [address] 11/03/2023 8:00 AM CDT Office Visit [address] [phone] Valery Veronica PA-C [address] [place] [address] 334345 11/29/2023 8:00 AM CDT Office Visit [facility] [id number] [place] [address] Esha Grimm PA-C [id number] [place] [phone] 01/02/2024 8:00 AM CDT Office Visit [facility] [address] [place] [phone] Lauren Claudio PA-C [address] [place], [place] [phone] Kelli Perez MD [address] [place] [address] documented as of this encounter Visit Diagnoses Not on filedocumented in this encounter Additional Health Concerns Infection Onset Date Last Indicated Resolved Time COVID-19 06/09/2022 06/09/2022 06/30/2022 11:4 1 PM REVIEW CONSULTANT Rule Out COVID-19 11/10/2022 11/10/2022 11/11/2022 12:17 PM CDT Rule Out COVID-19 03/07/2023 03/07/2023 03/07/2023 1:20 PM CDT Assessment Noted Time PHQ-9 Depression Total Score: 3 05/13/20 8:49 PM CDT documented as of this encounter Care Teams Vice President Payer Relationship Specialty Start Date End Date Marija Edgar APRN DOPE MIXER PCP - General Nurse Practitioner 04/30/20 04/14/23 Esha Grimm PA-C [address] [place] [phone] PCP - General Family Medicine 05/04/23 Lita Oseguera Personal Advocate & Liaison (PAL) 02/28/20 03/27/23 Marija Edgar APRN DOPE MIXER Assigned PCP 06/08/20 04/29/23 Keisha Dotson MD [address] [place] [address] Assigned Neuroscience Provider 06/04/20 04/01/[address] [facility] [address] [place] [address] Pharmacist Pharmacist 04/17/21 Rain Galaviz PA-C [address] [place] [address] [address] [facility] [place] [address] Physician Auditing Clerk Dermatology 04/28/21 Tavia Wyatt MD [address] [place] [address] DR RAZO [facility] [address] Dermatology 07/14/21 Erica Farrell APRN DOPE MIXER [address] [place] [address] Nurse Practitioner Cardiovascular Disease 09/09/21 Rich Barrett MD [address] 062805 Physician Ophthalmology 01/21/22 Neil Kent MD [address] [place] [address] [phone] Dermatology 02/24/22 Roney Story DPM [address] [facility] [address] [place], [place] 144707 Assigned Musculoskeletal Provider 03/20/22 08/13/[address] [facility] [address] [place] [address] Assigned MTM Pharmacist 04/07/22 Frankie Jelena TempletonSONJA woods [address] [facility] [place] [address] Assigned Surgical Provider 05/08/22 10/08/22 Livan Sharif MD [address], [facility] [place] 9685[address] Cardiovascular Disease 05/14/22 Livan Sharif MD [address], [facility] [address] [place] 95[address]85 Assigned Heart and Vascular Provider 06/12/22 07/23/22 Catherine Cm MD [address] [facility] [place] 529935 Cardiovascular Disease 07/21/22 Valery Veronica, PA-C [address] [place] [address] 878875 Physician Auditing Clerk Dermatology 07/21/22 Catherine Cm MD [address] [place] [address] [place] 474835 Assigned Heart and Vascular Provider 07/24/22 11/05/22 Johnny Murillo MD [address] [place] [address] 605944 Assigned Musculoskeletal Provider 08/14/22 10/08/22 Brea Quinn APRN DOPE MIXER [address] [place] [address] 512576 Nurse Practitioner Dermatology 09/21/22 Brea Quinn APRN DOPE MIXER 64[address] [facility] [place] [address] Assigned Surgical Provider 10/09/22 [place] [address] [facility] 300 [place] [address] Assigned Musculoskeletal Provider 10/09/22 Livan Sharif MD [address], [facility] [address] [place] [address] Assigned Heart and Vascular Provider 11/06/22 11/12/22 Catherine Cm MD [address] [facility] [address] [place] [address] Assigned Heart and Vascular Provider 11/13/22 05/27/23 Sydnie Martinez, RN Personal Advocate & Liaison (PAL) Family Medicine 03/28/23 07/31/23 Alfonso Renteria MD [address] [facility] 200 [place] [address] Assigned Neuroscience Provider 04/02/23 Cheng Todd PA-C [address] [place] [address] Assigned PCP 04/30/23 07/15/23 Radha Lomeli APRN DOPE MIXER [address] [place] 927755 Assigned Heart and Vascular Provider 05/28/23 Jelena David OD [address] [place] [address] Ophthalmology 06/15/23 Pao Joseph, RN Personal Advocate & Liaison (PAL) Nurse 08/01/23 Esha Grimm PA-C [address] [place] [phone] Assigned PCP 07/16/23 Valery Veronica PA-C [address] [place] [address] 353245 Physician Auditing Clerk Dermatology 09/19/23 Rey Tay MD [address] [place] [address] 010025 MD Gastroenterology 09/20/23 Rocky Zepeda DO [address] [place] [address] 580465 Physician Gastroenterology 09/20/23 Philip Dumont MD [address] [place] [address] [phone] Physician Ophthalmology 09/22/23 documented as of this encounter
--- OUTSIDE RECORDS SUMMARY | 2023-10-15 21:54 | XMS_ITS | Encounter Summary ---
Author Name Unknown Organization [place] Address [address] [place] [address] Care Team Providers Care Rail Signal Designer Name Role Phone Lita Oseguera Unavailable Unavailable Marija Edgar APRN CORN BREEDER Primary Care Provider U mandaailMarija Callaway APRN CORN BREEDER Unavailable Unavail able Keisha Dotson MD Unavailable [phone] Diana Desir [facility] Unavailable Rain Galaviz-C Unavailable [phone] Tavia Wyatt MD Unavailable Unavailable Erica Farrell APRN CORN BREEDER Unavailable Rich Barrett MD Unavailable [phone] Neil Kent MD Unavailable Roney Story DPM Unavailable [phone] Diana Desir [facility] Unavailable [phone] Jelena David OD Unavailable Livan Sharif MD Unavailable Livan Sharif MD Unavailable Catherine Cm MD Unavailable + Valery Veronica PA-C Unavailable [phone] Catherine Cm MD Unavailable + Johnny Murillo MD Unavailable [phone] Brea Quinn NAVIGATING OFFICER CORN BREEDER Unavailable [phone] Brea Quinn NAVIGATING OFFICER CORN BREEDER Unavailable Jose Francisco Johnson MD Unavailable Livan Sharif MD Unavailable Catherine Cm MD Unavailable + Sydnie Martinez RN Unavailable Unavailable Alfonso Renteria MD Unavailable Esha Grimm PA-C Primary Care Provider Cheng Todd PA-C Unavailable Radha Lomeli APRN CORN BREEDER Unavailable [phone] Jelena David OD Unavailable [phone] Pao Joseph RN Unavailable Unavailable Esha Grimm PA-C Unavailable [phone] Valery Veronica PA-C Unavailable Rey Tay MD Unavailable Rocky Zepeda DO Unavailable Philip Dumont MD Unavailable [phone] Encounter Details Date Type Department Care Team (Late st Contact Info) Description 07/02/2022 [facility] Medical Advice [address] [address] Diana Desir, [facility] [address] [place] [address] Social History Tobacco Use Types [...] How often do you attend gnosticist or pentecostal serv ices? Never 09/22/2021 Do you belong [...] points; Administer PHQ-9 if positive 1 05/13/2022 [facility] Occupat ional Health - [...] a care home (including now)? No 09/22/2021 Butner Depression Scale Answer Date Recorded Butner Depression Score 5 01/14/2021 Last EPDS Self [...] Coronavirus/COVID-19? No / Unsure 06/25/2022 8:44 AM IMPROVEMENT INTERN documented as of this encounter Plan of Treatment Upcoming Encounters Date Type Department Care Team (Late st Contact Info) Description 10/25/2023 11:30 AM CDT Virtual Visit [facility] [address] [place] [phone] [address], [address] [place] [address] 11/03/2023 8:00 AM CDT Office Visit [address] [phone] Valery Veronica PA-C [address] [place] [address] 11/29/2023 8:00 AM CDT Office Visit [facility] [address] [place] [phone] Esha Grimm PA-C [address] [place] [address] 01/02/2024 8:00 AM CDT Office Visit [facility] Sleep [facility] [address] [place] [phone] Lauren Claudio PA-C [address] [place] [address] Kelli Perez MD [address] [place] [address] 408874 documented as of this encounter Visit Diagnoses Not on filedocumented in this encounter Additional Health Concerns Infection Onset Date Last Indicated Resolved Time Rule Out COVID-19 11/10/2022 11/10/2022 11/11/2022 12:17 PM CDT Rule Out COVID-19 03/07/2023 03/07/2023 03/07/2023 1:20 PM CDT Assessment Noted Time PHQ-9 Depression Total Score: 3 05/13/20 22 8:49 PM CDT documented as of this encounter Care Teams Rail Signal Designer Relationship Specialty Start Date End Date Marija Edgar APRN CORN BREEDER PCP - General Nurse Practitioner 04/30/20 04/14/23 Esha Grimm PA-C [address] [place] [phone] PCP - General Family Medicine 05/04/23 Lita Oseguera Personal Advocate & Liaison (PAL) 02/28/20 03/27/23 Marija Edgar APRN CORN BREEDER Assigned PCP 06/08/20 04/29/23 Keisha Dotson MD [address] [place], [place] 776075 Assigned Neuroscience Provider 06/04/20 04/01/23 Diana Desir, [facility] [address] [place] [address] Pharmacist Pharmacist 04/17/21 Rain Galaviz PA-C [address] [place] [address] [place] [address] Physician Shaper Hand Dermatology 04/28/21 Tavia Wyatt MD [address] [place] [address] [place] [address] Dermatology 07/14/21 Erica Farrell APRN CORN BREEDER [address] [place] [address] Nurse Practitioner Cardiovascular Disease 09/09/21 Rich Barrett MD 516 [facility], [address] 504225 Physician Ophthalmology 01/21/22 Neil Kent MD 500 [place] [address] Dermatology 02/24/22 Roney Story DPM [address] [facility] [address] [place] [address] Assigned Musculoskeletal Provider 03/20/22 08/13/22 [facility] [address] [place], [place] 657376 Assigned MTM Pharmacist 04/07/22 Jelena David OD [address] [facility] [place] [address] Assigned Surgical Provider 05/08/22 10/08/22 Livan Sharif MD [address] [place] [address] [place] [address] Cardiovascular Disease 05/14/22 Livan Sharif MD [address], [place] [address] [place] [address] Assigned Heart and Vascular Provider 06/12/22 07/23/22 Catherine Cm MD [address] [place] [address] [place] [address] Cardiovascular Disease 07/21/22 Valery Veronica, PAUcheC [address] [place] [address] Physician Shaper Hand Dermatology 07/21/22 Catherine Cm MD [address] [facility] [address] [place] [address] Assigned Heart and Vascular Provider 07/24/22 11/05/22 Johnny Murillo MD [address] [place] [address] Assigned Musculoskeletal Provider 08/14/22 10/08/22 Brea Quinn APRN CORN BREEDER [address] [place] [address] [phone] Nurse Practitioner Dermatology 09/21/22 Brea Quinn APRN CORN BREEDER [address] [place] [address] [place] [address] Assigned Surgical Provider 10/09/22 [place] [address] [place] [address] 315117 Assigned Musculoskeletal Provider 10/09/22 Livan Sharif MD [address], [place] [address] [place] [address] Assigned Heart and Vascular Provider 11/06/22 11/12/22 Catherine Cm MD [address] [place] [address] [place] [address] Assigned Heart and Vascular Provider 11/13/22 05/27/23 Sydnie Martinez RN Personal Advocate & Liaison (PAL) Family Medicine 03/28/23 07/31/23 Alfonso Renteria MD [address] [facility] [address] [place] [address] Assigned Neuroscience Provider 04/02/23 Cheng Todd PA-C [address] [place], [place] [phone] Assigned PCP 04/30/23 07/15/23 Radha Lomeli APRN CORN BREEDER [address] [place] [address] Assigned Heart and Vascular Provider 05/28/23 Jelena David OD [address] [facility] [place] [address] Ophthalmology 06/15/23 Pao Joseph RN Personal Advocate & Liaison (PAL) Nurse 08/01/23 Esha Grimm PA-C [address] [place] [phone] Assigned PCP 07/16/23 Valery Veronica PA-C 909 [place], [place] 160855 Physician Shaper Hand Dermatology 09/19/23 Rey Tay MD [address] [place] [address] MD Gastroenterology 09/20/23 Rocky Zepeda DO [address] [place] [address] Physician Gastroenterology 09/20/23 Philip Dumont MD [address] [place] [address] Physician Ophthalmology 09/22/23 documented as of this encounter
--- OUTSIDE RECORDS SUMMARY | 2023-10-15 21:54 | XMS_ITS | Encounter Summary ---
Author Name Unknown Organization [facility] Address [address] [place] [address] Care Team Providers Care Sas Sql Developer Name Role Phone OumarAlee layyn Unavailable Unavailable Marija Edgar APRN ASSISTED LIVING MANAGER Primary Care Provider U mandaailMarija Callaway APRN ASSISTED LIVING MANAGER Unavailable Unavail able Keisha Dotson MD Unavailable [phone] Diana Desir [facility] Unavailable [phone] Rain Galaviz PA-C Unavailable [phone] Tavia Wyatt MD Unavailable Unavailable Erica Farrell APRN ASSISTED LIVING MANAGER Unavailable Rich Barrett MD Unavailable [phone] Neil Kent MD Unavailable Diana Desir [facility] Unavailable [phone] Livan Sharif MD Unavailable Catherine Cm MD Unavailable + Valery Veronica PA-C Unavailable [phone] Catherine Cm MD Unavailable + Brea Quinn APRN ASSISTED LIVING MANAGER Unavailable [phone] Brea Quinn APRN ASSISTED LIVING MANAGER Unavailable [phone] Jose Francisco Johnson MD Unavailable Livan Sharif MD Unavailable Catherine Cm MD Unavailable + Sydnie Martinez RN Unavailable Unavailable Alfonso Renteria MD Unavailable [phone] Esha Grimm PA-C Primary Care Provider Cheng Todd PA-C Unavailable ArmaniRadha ECHOCARDIOLOGIST ASSISTED LIVING MANAGER Unavailable Jelena David Radha OD Unavailable Pao Joseph RN Unavailable Unavailable Esha GrimmC Unavailable [phone] Valery Veronica PA-C Unavailable [phone] Rey Tay MD Unavailable Rocky Zepeda DO Unavailable Philip Dumont MD Unavailable [phone] Reason for Visit * Reason Onset Date Comments Pt. Information/instruction 10/11/2022 Appointment 10/11/2022 Encounter Details Date Type Department Care Team (Late st Contact Info) Description 10/11/2022 Telephone [facility] Sports Medicine [facility] [address] [place] [address] [address] [place], [place] 805037 [place] [address] [facility] 300 [place] [address] Pt. Information/instructio n; Appointment Social History Tobacco Use Types Packs/Day [...] How often do you attend orthodoxy or taoism serv ices? Never 09/22/2021 Do you belong [...] Answer Date Recorded PHQ-2 Score 1 10/11/2022 [facility] [place] of Occupat ional Health - Occupational Stress [...] or slept in a mcc (including now)? No 09/22/2021 [place] Depression Scale Answer Date Recorded [place] Depression Score 5 01/14/2021 Last EPDS Self [...] suspected to have Coronavirus/COVID-19? No / Unsure 10/11/2022 7:58 AM CDT documented as of this encounter Miscellaneous Notes * Telephone Encounter - Amairani Byrd RN - 10/19/2022 9:38 AM CDT Please also see telephone encounter dated 10/05/22 regarding MRI as that is being taken care of in that encounter. Please see new request below from C and advise. Mandi Byrd RN * Telephone Encounter - Treasure Lee - 10/15/2022 2:14 PM CDT [facility] Phone Message May a detailed message be left on voicemail: yes Reason for Call: Other: Patient's QRCMeredith is wondering if she can also be conference in on patient's upcoming appointment (10/27). Action Taken: Other: [facility] Sports Medicine Travel Screening: Not Applicable * Telephone Encounter - Mary Easley - 10/12/2022 12:47 PM CDT Called [facility] to discuss what they are needing from 's office. No answer. Left message to call back Kristina Easley ATC * Telephone Encounter - Treasure Lee - 10/11/2022 10:05 AM CDT [facility] Phone Message May a detailed message be left on voicemail: yes Reason for Call: Other: Please contact patient's insurance adjusterRosalva so she can authorize patient's MRI. Rosalva's contact info: phone# [phone] fax# [phone] Action Taken: Other: [facility] Sports Medicine Travel Screening: Not Applicable documented in this encounter Plan of Treatment Upcoming Encounters Date Type Department Care Team (Late st Contact Info) Description 10/25/2023 11:30 AM CDT Virtual Visit [facility] Gastroenterology Clinic [address] 4th [place] [phone] [address], [address] [place] [address] 11/03/2023 8:00 AM CDT Office Visit [facility] [address] [place] [phone] Valery Veronica PA-C [address] [place] [address] 11/29/2023 8:00 AM CDT Office Visit [facility] [address] [place] [phone] Esha Grimm PA-C [address] [place] [phone] 01/02/2024 8:00 AM CDT Office Visit [facility] [address] [place] [phone] Lauren Claudio PA-C [address] [place], [place] [phone] Kelli Perez MD [address] 350[address] documented as of this encounter Visit Diagnoses Not on filedocumented in this encounter Additional Health Concerns Infection Onset Date Last Indicated Resolved Time Rule Out COVID-19 11/10/2022 11/10/2022 11/11/2022 12:17 PM CDT Rule Out COVID-19 03/07/2023 03/07/2023 03/07/2023 1:20 PM CDT Assessment Noted Time PHQ-9 Depression Total Score: 5 10/11/19 8:58 AM CDT documented as of this encounter Care Teams Sas Sql Developer Relationship Specialty Start Date End Date Marija Edgar APRN ASSISTED LIVING MANAGER PCP - General Nurse Practitioner 04/30/20 04/14/23 Esha Grimm PA-C [address] [place] [address] PCP - General Family Medicine 05/04/23 Lita Oseguera Personal Advocate & Liaison (PAL) 02/28/20 03/27/23 Marija Edgar APRN ASSISTED LIVING MANAGER Assigned PCP 06/08/20 04/29/23 Keisha Dotson MD [address] [place] [address] Assigned Neuroscience Provider 06/04/20 04/01/23 [facility] [address] [place] [address] Pharmacist Pharmacist 04/17/21 Rain Galaviz PA-C [address] [place] [address] [address] [place] [address] Physician Communications Officer Dermatology 04/28/21 Tavia Wyatt MD [address] [place] [address] [address] [place] [address] Dermatology 07/14/21 Erica Farrell APRN ASSISTED LIVING MANAGER [address] [place] [address] Nurse Practitioner Cardiovascular Disease 09/09/21 Rich Barrett MD [address] [phone] Physician Ophthalmology 01/21/22 Neil Kent MD 500 [place], [place] [address]25 Dermatology 02/24/22 Diana Desir, [facility] [address] [place], [place] 161046 Assigned MTM Pharmacist 04/07/22 Livan Sharif MD [address], [facility]00 [place] 8[address] Cardiovascular Disease 05/14/22 Catherine Cm MD [address] [facility]00 [place] [address]185 Cardiovascular Disease 07/21/22 Valery Veronica, PA-C [address] [place] [address] [phone] Physician Communications Officer Dermatology 07/21/22 Catherine Cm MD [address] [place], [place] 240325 Assigned Heart and Vascular Provider 07/24/22 11/05/22 Brea Quinn APRN ASSISTED LIVING MANAGER [address] [place] [address] Nurse Practitioner Dermatology 09/21/22 Brea Quinn APRN ASSISTED LIVING MANAGER [address] [place] [address] 517249 [phone] Assigned Surgical Provider 10/09/22 [place] [address] [facility] [address] [place] [address] Assigned Musculoskeletal Provider 10/09/22 Livan Sharif MD [address], [facility] [address] [place] [address] Assigned Heart and Vascular Provider 11/06/22 11/12/22 Catherine Cm MD [address] [facility] [address] [place] [address] Assigned Heart and Vascular Provider 11/13/22 05/27/23 Sydnie Martinez RN Personal Advocate & Liaison (PAL) Family Medicine 03/28/23 07/31/23 Alfonso Renteria MD 5775 [facility] 200 [place], [place] 387166 Assigned Neuroscience Provider 04/02/23 Cheng Todd PA-C [address] [place] [address] Assigned PCP 04/30/23 07/15/23 Radha Lomeli, ARLENE ASSISTED LIVING MANAGER [address] [place] 173755 Assigned Heart and Vascular Provider 05/28/23 Jelena David OD [address] [facility] [place] [address] MD Ophthalmology 06/15/23 Pao Joseph, RN Personal Advocate & Liaison (PAL) Nurse 08/01/23 Esha Grimm PA-C [address] [place] [phone] Assigned PCP 07/16/23 Valery Veronica PA-C [address] [place] [address] [phone] Physician Communications Officer Dermatology 09/19/23 Rey Tay MD [address] [place] [address] Gastroenterology 09/20/23 Rocky Zepeda DO [address] [place] [address] Physician Gastroenterology 09/20/23 Philip Dumont MD [address] [place] [address] Physician Ophthalmology 09/22/23 documented as of this encounter
--- OUTSIDE RECORDS SUMMARY | 2023-10-15 21:54 | XMS_ITS | Encounter Summary ---
Author Name Unknown Organization [facility] Address [address] [place] [address] Care Team Providers Care Second Baller Name Role Phone Lita Oseguera Unavailable Unavailable Marija Edgar APRN FARM FIELD MANAGER Primary Care Provider U mandaailMarija Callaway APRN FARM FIELD MANAGER Unavailable Unavail able Keisha Dotson MD Unavailable [phone] Diana Desir [facility] Unavailable [phone] Rain Galaviz-C Unavailable Tavia Wyatt MD Unavailable Unavailable Erica Farrell APRN FARM FIELD MANAGER Unavailable Rich Barrett MD Unavailable [phone] Neil Kent MD Unavailable Roney Story DPM Unavailable [phone] Diana Desir [facility] Unavailable [phone] Jelena David OD Unavailable Livan Sharif MD Unavailable Livan Sharif MD Unavailable Catherine Cm MD Unavailable + Valery Veronica PA-C Unavailable [phone] Catherine Cm MD Unavailable + Johnny Murillo MD Unavailable [phone] Brea Quinn CLASP 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 FARM FIELD MANAGER Unavailable [phone] Brea Quinn CLASP 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 FARM FIELD MANAGER Unavailable Jose Francisco Johnson MD Unavailable Livan Sharif MD Unavailable + Catherine Cm MD Unavailable + Sydnie Martinez RN Unavailable Unavailable Alfosno Renteria MD Unavailable + [phone] Esha Grimm PA-C Primary Care Provider Cheng Todd PA-C Unavailable [phone] Radha Lomeli CLASP 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 FARM FIELD MANAGER Unavailable [phone] Jelena David OD Unavailable Pao Joseph RN Unavailable Unavailable Esha Grimm PA-C Unavailable Valery Veronica PA-C Unavailable [phone] Rey Tay MD Unavailable Rocky Zepeda DO Unavailable Philip Dumont MD Unavailable [phone] Encounter Details Date Type Department Care Team (Late st Contact Info) Description 07/20/2022 [facility] Medical Advice [facility] Heart [address] [place] [address] Pao Donahue, VJ Social History Tobacco Use Types Packs/Day Years [...] How often do you attend adventism or christianity serv ices? Never 09/22/2021 Do you belong [...] points; Administer PHQ-9 if positive 1 05/13/2022 [facility] [place] of Occupat ional Health - Occupational Stress [...] in a assisted (including now)? No 09/22/2021 [place] Depression Scale Answer Date Recorded [place] Depression Score 5 01/14/2021 Last EPDS Self [...] Coronavirus/COVID-19? No / Unsure 07/23/2022 6:45 AM SUPERVISOR CABINETMAKER documented as of this encounter Plan of Treatment Upcoming Encounters Date Type Department Care Team (Late st Contact Info) Description 10/25/2023 11:30 AM CDT Virtual Visit [facility] Gastroenterology Clinic [address]th [place] [phone] [address], [address] [place] [address] 11/03/2023 8:00 AM CDT Office Visit [facility] [address] [place] [address] [phone] Valery Veronica PA-C [address] [place] [address] 11/29/2023 8:00 AM CDT Office [facility] [address] [place] [phone] Esha Grimm PA-C [address] [place] [address] 01/02/2024 8:00 AM CDT Office Visit [facility] Sleep [facility] [address] [place] [phone] Lauren Claudio PA-C [address] [address] [place], [place] [phone] Kelli Perez MD [address] [facility] 106 [place], [place] 9[address]14 documented as of this encounter Visit Diagnoses Not on filedocumented in this encounter Additional Health Concerns Infection Onset Date Last Indicated Resolved Time Rule Out COVID-19 11/10/2022 11/10/2022 11/11/2022 12:17 PM CDT Rule Out COVID-19 03/07/2023 03/07/2023 03/07/2023 1:20 PM CDT Assessment Noted Time PHQ-9 Depression Total Score: 3 05/13/20 22 8:49 PM CDT documented as of this encounter Care Teams Second Baller Relationship Specialty Start Date End Date Marija Edgar APRN FARM FIELD MANAGER PCP - General Nurse Practitioner 04/30/20 04/14/23 Esha Grimm PA-C [address] [place] [address] PCP - General Family Medicine 05/04/23 Lita Oseguera Personal Advocate & Liaison (PAL) 02/28/20 03/27/23 Marija Edgar APRN FARM FIELD MANAGER Assigned PCP 06/08/20 04/29/23 Keisha Dotson MD 909 [place] [address] Assigned Neuroscience Provider 06/04/20 04/01/23 [facility] 3033 [place] [address] Pharmacist Pharmacist 04/17/21 Rain Galaviz PA-C [address] [place] [address] [place] [address] Physician Enterprise Software Engineer Dermatology 04/28/21 Tavia Wyatt MD [address] [place] [address] [place] [address] Dermatology 07/14/21 Erica Farrell APRN FARM FIELD MANAGER 6405 [facility] [address] [place] [address] Nurse Practitioner Cardiovascular Disease 09/09/21 Rich Barrett MD 516 [facility] 9[address] [place] [address] Physician Ophthalmology 01/21/22 Neil Kent MD 500 [place], [place] 9[address]75 Dermatology 02/24/22 Roney Story DPM [address] [facility] [address] [place], [place] 576537 Assigned Musculoskeletal Provider 03/20/22 08/13/22 Diana Desir, [facility] [address] [place], [place] [address]866 Assigned MTM Pharmacist 04/07/22 Jelena David OD [address] [facility] [place] [address] Assigned Surgical Provider 05/08/22 10/08/22 Livan Sharif MD [address] [place] [address] Cardiovascular Disease 05/14/22 Livan Sharif MD [address] [place] [address] Assigned Heart and Vascular Provider 06/12/22 07/23/22 Catherine Cm MD [address] [place] [address] Cardiovascular Disease 07/21/22 Valery Veronica PAUcheC [address]09 [place], [place] 5627[address] Physician Enterprise Software Engineer Dermatology 07/21/22 Catherine Cm MD [address] [place] [address] Assigned Heart and Vascular Provider 07/24/22 11/05/22 Johnny Murillo MD [address] [place] [address] Assigned Musculoskeletal Provider 08/14/22 10/08/22 Brea Quinn APRN FARM FIELD MANAGER [address] [place] [address] Nurse Practitioner Dermatology 09/21/22 Brea Quinn APRN FARM FIELD MANAGER [address] [place] [address] Assigned Surgical Provider 10/09/22 [place] [address] [place] [address] [address] Assigned Musculoskeletal Provider 10/09/22 Livan Sharif MD [address] [place], [address] [place] [address] [address] Assigned Heart and Vascular Provider 11/06/22 11/12/22 Catherine Cm MD [address] [place] [address] Assigned Heart and Vascular Provider 11/13/22 05/27/23 Sydnie Martinez RN Personal Advocate & Liaison (PAL) Family Medicine 03/28/23 07/31/23 Alfonso Renteria MD 5775 [facility] [address] 200 [place] [address] Assigned Neuroscience Provider 04/02/23 Cheng Todd PA-C [address] [place], [place] 48[address] Assigned PCP 04/30/23 07/15/23 Radha Lomeli APRN FARM FIELD MANAGER [address] [place] [address] Assigned Heart and Vascular Provider 05/28/23 Jelena David OD [address] [facility] [address] [place] [id number] Ophthalmology 06/15/23 Pao Joseph RN Personal Advocate & Liaison (PAL) Nurse 08/01/23 Esha Grimm PA-C [address] [place] [phone] Assigned PCP 07/16/23 Valery Veronica PA-C [address] [place] [address] 267325 Physician Enterprise Software Engineer Dermatology 09/19/23 Rey Tay MD [address] [place], [place] [address] Gastroenterology 09/20/23 Rocky Zepeda DO [address] [place] [address] 109565 Physician Gastroenterology 09/20/23 Philip Dumont MD [address] [place] [address] 052215 Physician Ophthalmology 09/22/23 documented as of this encounter
--- OUTSIDE RECORDS SUMMARY | 2023-10-15 21:54 | XMS_ITS | Encounter Summary ---
Author Name Unknown Organization [facility] Address [address] [place] [address] Care Team Providers Care Dispatcher Service Or Work Name Role Phone OumarAlee neriyn Unavailable Unavailable Marija Edgar APRN SHIPPING AND RECEIVING ASSISTANT Primary Care Provider U mandaailMarija Callaway APRN SHIPPING AND RECEIVING ASSISTANT Unavailable Unavail able Keisha Dotson MD Unavailable [phone] Diana Desir [facility] Unavailable [phone] Rain Galaviz PA-C Unavailable Tavia Wyatt MD Unavailable Unavailable Erica Farrell APRN SHIPPING AND RECEIVING ASSISTANT Unavailable Rich Barrett MD Unavailable [phone] Neil Kent MD Unavailable Diana Desir [facility] Unavailable [phone] Jelena David OD Unavailable Livan Sharif MD Unavailable Catherine Cm MD Unavailable + Valery Veronica PA-C Unavailable [phone] Catherine Cm MD Unavailable + Johnny Murillo MD Unavailable [phone] Brea Quinn APRN SHIPPING AND RECEIVING ASSISTANT Unavailable Brea Quinn APRN SHIPPING AND RECEIVING ASSISTANT Unavailable Jose Francisco Johnson MD Unavailable Livan Sharif MD Unavailable Catherine Cm MD Unavailable + Sydnie Martinez RN Unavailable Unavailable Alfonso Renteria MD Unavailable [phone] Esha Grimm PA-C Primary Care Provider Cheng Todd PA-C Unavailable [phone] Armani Radha Sia CERTIFIED DIETARY MANAGER SHIPPING AND RECEIVING ASSISTANT Unavailable Frankie Jelena Garcia OD Unavailable [phone] Pao Joseph RN Unavailable Unavailable Esha Grimm PA-C Unavailable [phone] Valery Veronica PA-C Unavailable [phone] Rey Tay MD Unavailable Rocky Zepeda DO Unavailable Philip Dumont MD Unavailable [phone] Reason for Visit * Reason Onset Date Comments Call Back 09/21/2022 Change of provid er request Encounter Details Date Type Department Care Team (Late st Contact Info) Description 09/21/2022 Telephone [facility] Epile[facility] [address], [address] [place] [address] Keisha Dotson MD [address] [place] [address] Call Back (Change of provider request) Social History Tobacco Use Types Packs/Day Years [...] How often do you attend advent or judaism serv ices? Never 09/22/2021 Do you belong to any clubs o r organizations such as advent groups, unions, fraternal or athletic groups, [...] 09/22/2021 PHQ-2 Answer Date Recorded PHQ-2 Score 2 08/27/2022 [facility] [place] of Occupat ional Health - Occupational Stress [...] or slept in a halfway (including now)? No 09/22/2021 Adel Depression Scale Answer Date Recorded Adel Depression Score 5 01/14/2021 Last EPDS Self [...] suspected to have Coronavirus/COVID-19? No / Unsure 09/23/2022 11:18 AM CDT documented as of this encounter Miscellaneous Notes * Telephone Encounter - Aleyda Guan - 09/21/2022 10:47 AM CDT [facility] Call Center Phone Message May a detailed message be left on voicemail: yes Reason for Call: Other: Change of provider request, Pt would like to be seen with another provider. Please call Pt back at [phone] to scheduled or advise. Action Taken: Message routed to: [facility] Neurology Travel Screening: Not Applicable documented in this encounter Plan of Treatment Upcoming Encounters Date Type Department Care Team (Late st Contact Info) Description 10/25/2023 11:30 AM CDT Virtual Visit [facility] Gastroenterology Clinic [address] 4th [place] [phone] Nelly Mesa, RD [address] [place] [address] 11/03/2023 8:00 AM CDT Office Visit [address] [phone] Valery Veronica PA-C [address] [place] [address] 11/29/2023 8:00 AM CDT Office Visit [facility] [address] [place] [address] Esha Grimm PA-C [id number] [place] [address] 01/02/2024 8:00 AM CDT Office Visit [facility] Sleep [facility] [address] [place] [phone] Lauren Claudio PA-C [address] [place], [place] [phone] Kelli Perez MD [address] [place] [address] documented as of this encounter Visit Diagnoses Not on filedocumented in this encounter Additional Health Concerns Infection Onset Date Last Indicated Resolved Time Rule Out COVID-19 11/10/2022 11/10/2022 11/11/2022 12:17 PM CDT Rule Out COVID-19 03/07/2023 03/07/2023 03/07/2023 1:20 PM CDT Assessment Noted Time PHQ-9 Depression Total Score: 5 08/27/19 1:14 PM INSTRUMENT/CONTROL TECHNICIAN documented as of this encounter Care Teams Dispatcher Service Or Work Relationship Specialty Start Date End Date Marija Edgar APRN SHIPPING AND RECEIVING ASSISTANT PCP - General Nurse Practitioner 04/30/20 04/14/23 Esha Grimm PA-C [address] [place] [phone] PCP - General Family Medicine 05/04/23 Lita Oseguera Personal Advocate & Liaison (PAL) 02/28/20 03/27/23 Marija Edgar APRN SHIPPING AND RECEIVING ASSISTANT Assigned PCP 06/08/20 04/29/23 Keisha Dotson MD [address] [place] [address] Assigned Neuroscience Provider 06/04/20 04/01/23 Diana Desir [facility] 3033 [place] [address] Pharmacist Pharmacist 04/17/21 Rain Galaviz PA-C [address] [place] [address] [address] [place] [address] Physician Director Food And Beverage Dermatology 04/28/21 Tavia Wyatt MD [address] [place] [address] [place] [address] Dermatology 07/14/21 Erica Farrell APRN SHIPPING AND RECEIVING ASSISTANT [address] [place] [address] Nurse Practitioner Cardiovascular Disease 09/09/21 Rich Barrett MD [address] [place] [address], [address] 517615 Physician Ophthalmology 01/21/22 Neil Kent MD [address] [place], [place] [address] Dermatology 02/24/22 [facility] 3033 [place] [address] Assigned MTM Pharmacist 04/07/22 Jelena David OD [address] [facility] [place] [address] Assigned Surgical Provider 05/08/22 10/08/22 Livan Sharif MD [address] [place] [address] Cardiovascular Disease 05/14/22 Catherine Cm MD [address] [facility] [address] [place] [address] Cardiovascular Disease 07/21/22 Valery Veronica PA-C [address] [place] [address] Physician Director Food And Beverage Dermatology 07/21/22 Catherine Cm MD 6405 [facility] [address] [place] [address] Assigned Heart and Vascular Provider 07/24/22 11/05/22 Johnny Murillo MD [address] [place] [address] Assigned Musculoskeletal Provider 08/14/22 10/08/22 Brea Quinn APRN SHIPPING AND RECEIVING ASSISTANT [address] [place] [address] 159125 Nurse Practitioner Dermatology 09/21/22 Brea Quinn APRN SHIPPING AND RECEIVING ASSISTANT [address] [place] [address] 340792 Assigned Surgical Provider 10/09/22 [place] [address] [place] [address] Assigned Musculoskeletal Provider 10/09/22 Livan Sharif MD 6405 [facility], [facility] [address] [place] [address] Assigned Heart and Vascular Provider 11/06/22 11/12/22 Catherine Cm MD [address] [place] [address] Assigned Heart and Vascular Provider 11/13/22 05/27/23 Sydnie Martinez RN Personal Advocate & Liaison (PAL) Family Medicine 03/28/23 07/31/23 Alfonso Renteria MD [address] [place] [address] Assigned Neuroscience Provider 04/02/23 Cheng Todd PA-C [address] [place], [place] [phone] Assigned PCP 04/30/23 07/15/23 Radha Lomeli APRN SHIPPING AND RECEIVING ASSISTANT [address] [place] [address] Assigned Heart and Vascular Provider 05/28/23 Jelena David OD [address] [place] [address] Ophthalmology 06/15/23 Pao Joseph RN Personal Advocate & Liaison (PAL) Nurse 08/01/23 Esha Grimm PA-C [address] [place] [address]83 Assigned PCP 07/16/23 Valery Veronica PA-C [address] [place] [address] Physician Director Food And Beverage Dermatology 09/19/23 Rey Tay MD 909 [place] [address] Gastroenterology 09/20/23 Rocky Zepeda DO [address] [place] [address] Physician Gastroenterology 09/20/23 Philip Dumont MD [address] [place] [address] Physician Ophthalmology 09/22/23 documented as of this encounter
--- OUTSIDE RECORDS SUMMARY | 2023-10-15 21:54 | XMS_ITS | Encounter Summary ---
Author Name Unknown Organization [facility] Address [address] [place] [address] Care Team Providers Care Process Safety Manager Name Role Phone OumarAlee neriyn Unavailable Unavailable Marija Edgar APRN WATER TREATMENT PLANT OPERATOR Primary Care Provider U mandaailMarija Callaway APRN WATER TREATMENT PLANT OPERATOR Unavailable Unavail able Keisha Dotson MD Unavailable [phone] Diana Desir [facility] Unavailable [phone] Rain Galaviz PA-C Unavailable [phone] Tavia Wyatt MD Unavailable Unavailable Erica Farrell APRN WATER TREATMENT PLANT OPERATOR Unavailable Rich Barrett MD Unavailable [phone] Neil Kent MD Unavailable Diana Dseir [facility] Unavailable [phone] Jelena David OD Unavailable Livan Sharif MD Unavailable Catherine Cm MD Unavailable + Valery Veronica PA-C Unavailable [phone] Catherine Cm MD Unavailable + Johnny Murillo MD Unavailable [phone] Brea Quinn APRN WATER TREATMENT PLANT OPERATOR Unavailable Brea Quinn HOUSING ASSISTANT PROPERTY MANAGER WATER TREATMENT PLANT OPERATOR Unavailable Jose Francisco Johnson MD Unavailable Livan Sharif MD Unavailable Catherine Cm MD Unavailable + Sydnie Martinez RN Unavailable Unavailable Alfonso Renteria MD Unavailable [phone] Esha Grimm PA-C Primary Care Provider Cheng Todd PA-C Unavailable Radha Lomeli HOUSING ASSISTANT PROPERTY MANAGER WATER TREATMENT PLANT OPERATOR Unavailable Frankie Jelena Garcia OD Unavailable [phone] Pao Joseph RN Unavailable Unavailable Esha Grimm PA-C Unavailable [phone] Valery Veronica PA-C Unavailable Rey Tay MD Unavailable Rocky Zepeda DO Unavailable Philip Dumont MD Unavailable Encounter Details Date Type Department Care Team (Late st Contact Info) Description 10/06/2022 My[facility] Medical Advice [address] [place] [address] Brea Quinn APRN WATER TREATMENT PLANT OPERATOR [address] [facility] [place], [place] 1457[address] Social History Tobacco Use Types Packs/Day Years [...] How often do you attend zoroastrian or restorationist serv ices? Never 09/22/2021 Do you belong to any clubs o r organizations such as zoroastrian groups, unions, fraternal or athletic groups, [...] more points; Administer PHQ-9 if positive 1 10/10/2022 [facility] - Occupational Stress Questionnaire Answer Date Recorded [...] or slept in a residential (including now)? No 09/22/2021 Attica Depression Scale Answer Date Recorded Attica Depression Score 5 01/14/2021 Last EPDS Self [...] suspected to have Coronavirus/COVID-19? No / Unsure 10/07/2022 1:08 PM CDT documented as of this encounter Plan of Treatment Upcoming Encounters Date Type Department Care Team (Late st Contact Info) Description 10/25/2023 11:30 AM CDT Virtual Visit [facility] Gastroenterology Clinic [address] 4th [place] [phone] Nelly Mesa, RD [address] [place] [address] 11/03/2023 8:00 AM CDT Office Visit [facility] [address] [place] [phone] Valery Veronica PA-C [address] [place] [address] 11/29/2023 8:00 AM CDT Office Visit [facility] [address] [place] [phone] Esha Grimm PA-C [address] [place] [phone] 01/02/2024 8:00 AM CDT Office Visit [facility] [address] [place] [phone] Lauren Claudio PA-C [address] [place], [place] [phone] Kelli Perez MD [address] [phone] documented as of this encounter Visit Diagnoses Not on filedocumented in this encounter Additional Health Concerns Infection Onset Date Last Indicated Resolved Time Rule Out COVID-19 11/10/2022 11/10/2022 11/11/2022 12:17 PM CDT Rule Out COVID-19 03/07/2023 03/07/2023 03/07/2023 1:20 PM CDT Assessment Noted Time PHQ-9 Depression Total Score: 5 08/27/19 1:14 PM FINANCIAL CONSULTANT documented as of this encounter Care Teams Process Safety Manager Relationship Specialty Start Date End Date Marija Edgar APRN WATER TREATMENT PLANT OPERATOR PCP - General Nurse Practitioner 04/30/20 04/14/23 Esha Grimm PA-C [address] [place] [address] PCP - General Family Medicine 05/04/23 Lita Oseguera Personal Advocate & Liaison (PAL) 02/28/20 03/27/23 Marija Edgar APRN WATER TREATMENT PLANT OPERATOR Assigned PCP 06/08/20 04/29/23 Keisha Dotson MD 909 [place] [address] Assigned Neuroscience Provider 06/04/20 04/01/23 Diana Desir, [facility] 3033 [place] [address] Pharmacist Pharmacist 04/17/21 Rain Galaviz PA-C [address] [place] [address] [place] [address] Physician Finishing Technician Dermatology 04/28/21 Tavia Wyatt MD [address] [place] [address] [place] [address] Dermatology 07/14/21 Erica Farrell APRN WATER TREATMENT PLANT OPERATOR 6[address] [facility] [address] [place] [address] Nurse Practitioner Cardiovascular Disease 09/09/21 Rich Barrett MD [address] [facility] 9[address] [place], [place] [address] Physician Ophthalmology 01/21/22 Neil Kent MD [address] [place] [address] 577065 Dermatology 02/24/22 Diana Desir, [facility] 30[address] [place], [place] 847326 Assigned MTM Pharmacist 04/07/22 Jelena David OD [address] [facility] [place] [address] Assigned Surgical Provider 05/08/22 10/08/22 Livan Sharif MD [address], [address] [place] [address] Cardiovascular Disease 05/14/22 Catherine Cm MD [address] [place] 269355 Cardiovascular Disease 07/21/22 Valery Veronica, PA-C [address] [place], [place] 058305 Physician Finishing Technician Dermatology 07/21/22 Catherine Cm MD [address] [place] [address] Assigned Heart and Vascular Provider 07/24/22 11/05/22 Johnny Murillo MD [facility] [place] [address] [place], [place] 076744 Assigned Musculoskeletal Provider 08/14/22 10/08/22 Brea Quinn APRN WATER TREATMENT PLANT OPERATOR [address] [place] [address] Nurse Practitioner Dermatology 09/21/22 Brea Quinn APRN WATER TREATMENT PLANT OPERATOR [address] [place] [address] [facility] [place] [place] [address] Assigned Surgical Provider 10/09/22 [place] [address] [address] Assigned Musculoskeletal Provider 10/09/22 Livan Sharif MD [address] [facility] [address] [place] [address] Assigned Heart and Vascular Provider 11/06/22 11/12/22 Catherine Cm MD [address] [facility] [address] [place] [address] Assigned Heart and Vascular Provider 11/13/22 05/27/23 Sydnie Martinez RN Personal Advocate & Liaison (PAL) Family Medicine 03/28/23 07/31/23 Alfonso Renteria MD [address] [facility] 200 [place], [place] 0[address]706 Assigned Neuroscience Provider 04/02/23 Cheng Todd PA-C [address] [place] [address] Assigned PCP 04/30/23 07/15/23 Radha Lomeli APRN WATER TREATMENT PLANT OPERATOR [address] [place] [address] Assigned Heart and Vascular Provider 05/28/23 Jelena David OD [address] [facility] [place] [address] MD Ophthalmology 06/15/23 Pao Joseph, VJ Personal Advocate & Liaison (PAL) Nurse 08/01/23 Esha Grimm PA-C [address] [place] [address] Assigned PCP 07/16/23 Valery Veronica PA-C [address] [place] [address] 033135 Physician Finishing Technician Dermatology 09/19/23 Rey Tay MD [address] [place] [address] 460765 Gastroenterology 09/20/23 Rocky Zepeda DO [address] [place] [address] 354445 Physician Gastroenterology 09/20/23 Philip Dumont MD [address] [place] [address] 853645 Physician Ophthalmology 09/22/23 documented as of this encounter
--- OUTSIDE RECORDS SUMMARY | 2023-10-15 21:54 | XMS_ITS | Encounter Summary ---
Author Name Unknown Organization [facility] Address [address] [place] [address] Care Team Providers [facility] Call Center Agent Name Role Phone OumarAlee layyn Unavailable Unavailable Marija Edgar APRN COSTUME CUTTER Primary Care Provider U mandaailMarija Callaway APRN COSTUME CUTTER Unavailable Unavail able Keisha Dotson MD Unavailable [phone] Diana Desir [facility] Unavailable [phone] Rian Galaviz PA-C Unavailable [phone] Tavia Wyatt MD Unavailable Unavailable Erica Farrell APRN COSTUME CUTTER Unavailable Rich Barrett MD Unavailable [phone] Neil Kent MD Unavailable Diana Desir [facility] Unavailable [phone] Livan Sharif MD Unavailable Catherine Cm MD Unavailable + Valery Veronica PA-C Unavailable [phone] Catherine Cm MD Unavailable + Brea Quinn APRN COSTUME CUTTER Unavailable [phone] Brea Quinn APRN COSTUME CUTTER Unavailable [phone] Jose Francisco Johnson MD Unavailable Livan Sharif MD Unavailable Catherine Cm MD Unavailable + Sydnie Martinez RN Unavailable Unavailable Alfonso Renteria MD Unavailable [phone] Esha GrimmC Primary Care Provider [phone] Cheng Todd PA-C Unavailable Armani Radha Stovall GREASE RENDERER COSTUME CUTTER Unavailable Jelena David OD Unavailable Pao Joseph RN Unavailable Unavailable Esha GrimmC Unavailable [phone] Valery Veronica-C Unavailable [phone] Rey Tay MD Unavailable Rocky Zepeda DO Unavailable Philip Dumont MD Unavailable [phone] Reason for Visit * Reason Onset Date Comments Prior Auth - Medication 10/12/2022 Lidocain e (LIDOCARE) 4 % Patch - EPA DENIED Encounter Details Date Type Department Care Team (Late st Contact Info) Description 10/12/2022 Telephone [facility] [address] [place] [phone] Lauren Claudio PA-C [address] [place] [address] Prior Auth - Medication (Lidocaine (LIDOCARE) 4 % Patch - EPA DENIED) Social History Tobacco Use [...] How often do you attend caodaism or uatsdin serv ices? Never 09/22/2021 Do you belong to any clubs o r organizations such as caodaism groups, unions, fraternal or athletic groups, [...] Answer Date Recorded PHQ-2 Score 1 10/11/2022 [facility] of Occupat ional Health - [...] in a retirement (including now)? No 09/22/2021 Columbia Depression Scale Answer Date Recorded Columbia Depression Score 5 01/14/2021 Last EPDS Self [...] encounter Miscellaneous Notes * Telephone Encounter - Lauren Claudio PA-C - 10/13/2022 9:22 AM CDT I will discuss with patient when I see her later this week. * Telephone Encounter - Nazario Stevenson - 10/12/2022 10:01 AM CDT Images from the original note were not included. Central Prior Authorization Team PRIOR AUTHORIZATION DENIED Medication: Lidocaine (LIDOCARE) 4 % Patch - EPA DENIED Denial Date: 10/12/2022 Denial Rational: CRITERIA BELOW NOT MET FOR APPROVAL: Appeal Information: * Telephone Encounter - Jess Denson - 10/12/2022 8:21 AM CDT Images from the original note were not included. EPA DENIED - DOCUMENT ATTACHED documented in this encounter Plan of Treatment Upcoming Encounters Date Type Department Care Team (Late st Contact Info) Description 10/25/2023 11:30 AM CDT Virtual Visit [facility] Gastroenterology Clinic [address]th [place] [phone] Nelly Mesa, RD [address] [place] [address] 11/03/2023 8:00 AM CDT Office Visit [address] [phone] Valery Veronica PA-C [address] [place] [address] 11/29/2023 8:00 AM CDT Office Visit [facility] [address] [place] [phone] Esha Grimm PA-C [address] [place] [address] 01/02/2024 8:00 AM CDT Office Visit [facility] [address] [place] [phone] Lauren Claudio PA-C [address] [place] [address] Kelli Perez MD [address] [facility] 106 [place], [place] [phone] documented as of this encounter Visit Diagnoses Not on filedocumented in this encounter Additional Health Concerns Infection Onset Date Last Indicated Resolved Time Rule Out COVID-19 11/10/2022 11/10/2022 11/11/2022 12:17 PM CDT Rule Out COVID-19 03/07/2023 03/07/2023 03/07/2023 1:20 PM CDT Assessment Noted Time PHQ-9 Depression Total Score: 5 10/11/19 8:58 AM CDT documented as of this encounter Care Teams At Home Independent Call Center Agent Relationship Specialty Start Date End Date Marija Edgar APRN COSTUME CUTTER PCP - General Nurse Practitioner 04/30/20 04/14/23 Esha Grimm PA-C [address] [place] [address] PCP - General Family Medicine 05/04/23 Lita Oseguera Personal Advocate & Liaison (PAL) 02/28/20 03/27/23 Marija Edgar APRN COSTUME CUTTER Assigned PCP 06/08/20 04/29/23 Keisha Dotson MD [address] [place] [address] Assigned Neuroscience Provider 06/04/20 04/01/23 Diana Desir, [facility] [address] [place] [address] Pharmacist Pharmacist 04/17/21 Rain Galaviz PA-C [address] [place] [address] [address] [place] [address] Physician Machine Tool Electrician Dermatology 04/28/21 Tavia Wyatt MD [address] [place] [address] [place]SON [address] Dermatology 07/14/21 Erica Farrell APRN COSTUME CUTTER [address] [place] 699555 Nurse Practitioner Cardiovascular Disease 09/09/21 Rich Barrett MD [address] [address] Physician Ophthalmology 01/21/22 Neil Kent MD [address] [place] [address] Dermatology 02/24/22 Diana Desir, [facility] [address] [place] [address] Assigned MTM Pharmacist 04/07/22 Livan Sharif MD [address] [place] [address] Cardiovascular Disease 05/14/22 Catherine Cm MD [address] [facility] [address] [place] [address] Cardiovascular Disease 07/21/22 Valery Veronica, PA-C [address] [place] [address] Physician Machine Tool Electrician Dermatology 07/21/22 Catherine Cm MD [address] [facility] [address] [place] [address] Assigned Heart and Vascular Provider 07/24/22 11/05/22 Brea Quinn APRN COSTUME CUTTER [address] [place] [address] Nurse Practitioner Dermatology 09/21/22 Brea Quinn APRN COSTUME CUTTER [address] [place] [address] Assigned Surgical Provider 10/09/22 [place] [address] [facility] [address] [place] [address] Assigned Musculoskeletal Provider 10/09/22 Livan Sharif MD [address] [place] [address] Assigned Heart and Vascular Provider 11/06/22 11/12/22 Catherine mC MD [address] [place] [address] Assigned Heart and Vascular Provider 11/13/22 05/27/23 Sydnie Martinez RN Personal Advocate & Liaison (PAL) Family Medicine 03/28/23 07/31/23 Alfonso Renteria MD 5775 [facility] [address] [place], [place] [address] Assigned Neuroscience Provider 04/02/23 Cheng Todd PA-C [address] [place], [place] 19073124 Assigned PCP 04/30/23 07/15/23 Radha Lomeli APRN COSTUME CUTTER [address] [place] [address] Assigned Heart and Vascular Provider 05/28/23 Jelena David OD [address] [facility] [place] [address] MD Ophthalmology 06/15/23 Pao Joseph RN Personal Advocate & Liaison (PAL) Nurse 08/01/23 Esha Grimm PA-C [address] [place] [phone] Assigned PCP 07/16/23 Valery Veronica PA-C [address] [place] [address] 487855 Physician Machine Tool Electrician Dermatology 09/19/23 Rey Tay MD [address] [place] [address] [id number] Gastroenterology 09/20/23 Rocky Zepeda DO [address] [place] [address] Physician Gastroenterology 09/20/23 Philip Dumont MD [address] [place] [address] Physician Ophthalmology 09/22/23 documented as of this encounter
[2023-10-15 21:55] LABS: Slide Review Reflex No
--- OUTSIDE RECORDS SUMMARY | 2023-10-15 21:55 | XMS_ITS | Encounter Summary ---
Author Name Unknown Organization [place] Address [address] [place] [address] Care Team Providers Care Dinkey Engine Operator Name Role Phone Lita Oseguera Unavailable Unavailable Marija Edgar APRN CUPOLA CHARGER Primary Care Provider U mandaailMarija Callaway APRN CUPOLA CHARGER Unavailable Unavail able Keisha Dotson MD Unavailable [phone] Galo Burrell MD Unavailable Unavailable Diana Desir [facility] Unavailable [phone] Rain Galaviz PA-C Unavailable Summer Lara MD Unavailable [phone] Tavia Wyatt MD Unavailable Unavailable Johnny Murillo MD Unavailable Erica Farrell APRN CUPOLA CHARGER Unavailable Tavia Wyatt MD Unavailable Unavailable Diana Desir [facility] Unavailable [phone] Rich Barrett MD Unavailable [phone] Neil Kent MD Unavailable Roney Story DPM Unavailable [phone] Erica Farrell APRN CUPOLA CHARGER Unavailable Diana Desir [facility] Unavailable [phone] Jelena David OD Unavailable Galo Burrell MD Unavailable Unavailable Livan Sharif MD Unavailable + Livan Sharif MD Unavailable + Catherine Cm MD Unavailable + Valery Veronica PA-C Unavailable [phone] Catherine Cm MD Unavailable + Johnny Murillo MD Unavailable [phone] Brea Quinn VETERINARY TOXICOLOGIST CUPOLA CHARGER Unavailable [phone] Brea Quinn VETERINARY TOXICOLOGIST CUPOLA CHARGER Unavailable [phone] Jose Francisco Johnson MD Unavailable Livan Sharif MD Unavailable + Catherine Cm MD Unavailable + Sydnie Martinez RN Unavailable Unavailable Alfonso Renteria MD Unavailable Esha Grimm PA-C Primary Care Provider Cheng Todd PA-C Unavailable Radha Lomeli VETERINARY TOXICOLOGIST CUPOLA CHARGER Unavailable [phone] Jelena David OD Unavailable Pao Joseph RN Unavailable Unavailable Esha Grimm PA-C Unavailable [phone] Valery Veronica PA-C Unavailable [phone] Rey Tay MD Unavailable Rocky Zepeda DO Unavailable Philip Dumont MD Unavailable [phone] Encounter Details Date Type Department Care Team (Late st Contact Info) Description 12/03/2021 MyC Medical Advice [facility] [address] [facility], [address] [place] [phone] Keisha Dotson MD [address] [place] [address] Social History Tobacco Use Types Packs/Day Years [...] How often do you attend mormon or yazdanism serv ices? Never 09/22/2021 Do you belong [...] PHQ-2 Answer Date Recorded PHQ-2 Score 2 09/22/2021 [facility] - Occupational Stress Questionnaire Answer Date Recorded [...] a care home (including now)? No 09/22/2021 [place] Depression Scale Answer Date Recorded [place] Depression Score 5 01/14/2021 Last EPDS Self [...] suspected to have Coronavirus/COVID-19? No / Unsure 11/12/2021 5:01 PM CDT documented as of this encounter Plan of Treatment Upcoming Encounters Date Type Department Care Team (Late st Contact Info) Description 10/25/2023 11:30 AM CDT Virtual Visit [facility] [address] [phone] [address], [address] [place] [address] 11/03/2023 8:00 AM CDT Office Visit [facility] [address] [place] [phone] Valery Veronica PA-C [address] [place] [address] 11/29/2023 8:00 AM CDT Office Visit [facility] [address] [place] [phone] Esha Grimm PA-C [address] [place] [address] 01/02/2024 8:00 AM CDT Office Visit [facility] [place] [address] [place] [phone] Lauren Claudio PA-C [address] [place] [address] Kelli Perez MD [address] [place] [address] documented as of this encounter Visit Diagnoses Not on filedocumented in this encounter Additional Health Concerns Infection Onset Date Last Indicated Resolved Time Rule Out COVID-19 12/18/2021 12/18/2021 12/19/2021 11:34 AM CDT Rule Out COVID-19 02/24/2022 02/24/2022 02/25/2022 1:08 PM CDT Rule Out COVID-19 04/26/2022 04/26/2022 04/26/2022 6:47 AM CDT Rule Out COVID-19 05/17/2022 05/17/2022 05/17/2022 10:20 PM FERMENTER HELPER Rule Out COVID-19 06/09/2022 06/09/2022 06/09/2022 9:35 AM FERMENTER HELPER COVID-19 06/09/2022 06/09/2022 06/30/2022 11:4 1 PM FERMENTER HELPER Rule Out COVID-19 11/10/2022 11/10/2022 11/11/2022 12:17 PM CDT Rule Out COVID-19 03/07/2023 03/07/2023 03/07/2023 1:20 PM CDT Assessment Noted Time PHQ-9 Depression Total Score: 2 04/02/20 10:19 AM CDT documented as of this encounter Care Teams Dinkey Engine Operator Relationship Specialty Start Date End Date Marija Edgar APRN CUPOLA CHARGER PCP - General Nurse Practitioner 04/30/20 04/14/23 Esha Grimm PA-C [address] [place] [phone] PCP - General Family Medicine 05/04/23 Lita Oseguera Personal Advocate & Liaison (PAL) 02/28/20 03/27/23 Marija Edgar APRN CUPOLA CHARGER Assigned PCP 06/08/20 04/29/23 Keisha Dotson MD 909 [place] [address] Assigned Neuroscience Provider 06/04/20 04/01/23 Galo Burrell MD Assigned Heart and Vascular Provider 10/05/20 04/02/22 [facility] [address] [place] [address] Pharmacist Pharmacist 04/17/21 Rain Galaviz PA-C [address] [place] [address] [place] [address] Physician Speed Operator Dermatology 04/28/21 Summer Lara MD [address] [place] [address] 699294 Assigned OBGYN Provider 05/31/21 9 2 Tavia Wyatt MD [address] [place] [address] Dermatology 07/14/21 Johnny Murillo MD [facility] [address] [place] [address] Assigned Musculoskeletal Provider 08/30/21 03/17/22 Erica Farrell APRN CUPOLA CHARGER [address] [facility] [address] [place] [address] Nurse Practitioner Cardiovascular Disease 09/09/21 Tavia Wyatt MD Assigned Surgical Provider 11/29/21 05/07/22 Diana Desir, [facility] [address]33 [place] [address] Assigned MTM Pharmacist 01/02/22 Rich Barrett MD [address] 762445 Physician Ophthalmology 01/21/22 Neil Kent MD 500 [place], [place] 059435 Dermatology 02/24/22 Roney Story DPM [address] [facility] [address] [place] [address] Assigned Musculoskeletal Provider 03/20/22 08/13/22 Erica Farrell APRN CUPOLA CHARGER 1700 [place] [address] Assigned Heart and Vascular Provider 04/03/22 04/16/22 Diana Desir, [facility] [address] [place] [address] Assigned MTM Pharmacist 04/07/22 Jelena David OD [address] [facility] [place] [address] Assigned Surgical Provider 05/08/22 10/08/22 Galo Burrell MD Assigned Heart and Vascular Provider 04/17/22 06/11/22 Livan Sharif MD [address] [place] [address] Cardiovascular Disease 05/14/22 Livan Sharif MD [address] [place] [address] Assigned Heart and Vascular Provider 06/12/22 07/23/22 Catherine Cm MD [address] [place] [address] Cardiovascular Disease 07/21/22 Valery Veronica, PA-C [address] [place] [address] 475125 Physician Speed Operator Dermatology 07/21/22 Catherine Cm MD [address] [place] 831575 Assigned Heart and Vascular Provider 07/24/22 11/05/22 Johnny Murillo MD [address] [place] [address] 557424 Assigned Musculoskeletal Provider 08/14/22 10/08/22 Brea Quinn APRN CUPOLA CHARGER [address] [place] [address] 895535 Nurse Practitioner Dermatology 09/21/22 Brea Quinn APRN CUPOLA CHARGER [address] [place] [address] [place], [place] 020932 Assigned Surgical Provider 10/09/22 [place] [address] [facility] [address] [place] [address] Assigned Musculoskeletal Provider 10/09/22 Livan Sharif MD [address] [place], [place] 905285 Assigned Heart and Vascular Provider 11/06/22 11/12/22 Catherine Cm MD [address] [place], [place] 224765 Assigned Heart and Vascular Provider 11/13/22 05/27/23 Sydnie Martinez RN Personal Advocate & Liaison (PAL) Family Medicine 03/28/23 07/31/23 Alfonso Renteria MD [address] [facility] 200 [place] [address] Assigned Neuroscience Provider 04/02/23 Cheng Todd PA-C [address] [place], [place] 53989124 Assigned PCP 04/30/23 07/15/23 Radha Lomeli, [place] CUPOLA CHARGER [address] [place] [address] Assigned Heart and Vascular Provider 05/28/23 Jelena David OD [address] [facility] [place] [address] Ophthalmology 06/15/23 Pao Joseph RN Personal Advocate & Liaison (PAL) Nurse 08/01/23 Esha Grimm PA-C [address] [place] [phone] Assigned PCP 07/16/23 Valery Veronica PA-C 9 [place], [place] [address] Physician Speed Operator Dermatology 09/19/23 Rey Tay MD [address] [place] [address] 692255 Gastroenterology 09/20/23 Rocky Zepeda DO [address] [place] [address] Physician Gastroenterology 09/20/23 Philip Dumont MD [address] [place] [address] 871155 Physician Ophthalmology 09/22/23 documented as of this encounter
--- OUTSIDE RECORDS SUMMARY | 2023-10-15 21:55 | XMS_ITS | Encounter Summary ---
Author Name Unknown Organization [place] Address [address] [place] [address] Care Team Providers Care Counselor Aide Name Role Phone Lita Oseguera Unavailable Unavailable Marija Edgar APRN SUSTAINABLE PRODUCTS MARKETING MANAGER Primary Care Provider U mandaailMarija Callaway APRN SUSTAINABLE PRODUCTS MARKETING MANAGER Unavailable Unavail able Keisha Dotson MD Unavailable [phone] Diana Desir [facility] Unavailable [phone] Rain Galaviz PA-C Unavailable Tavia Wyatt MD Unavailable Unavailable Erica Farrell JOB PRINTER SUSTAINABLE PRODUCTS MARKETING MANAGER Unavailable Tavia Wyatt MD Unavailable Unavailable Rich Barrett MD Unavailable [phone] Neil Kent MD Unavailable Roney Story DPM Unavailable [phone] Erica Farrell APRN SUSTAINABLE PRODUCTS MARKETING MANAGER Unavailable Diana Desir [facility] Unavailable [phone] Jelena David OD Unavailable Galo Burrell MD Unavailable Unavailable Livan Sharif MD Unavailable Livan Sharif MD Unavailable Catherine Cm MD Unavailable + Valery Veronica PA-C Unavailable [phone] Catherine Cm MD Unavailable + Johnny Murillo MD Unavailable [phone] Brea Quinn JOB PRINTER SUSTAINABLE PRODUCTS MARKETING MANAGER Unavailable [phone] Brea Quinn JOB PRINTER SUSTAINABLE PRODUCTS MARKETING MANAGER Unavailable [phone] Jose Francisco Johnson MD Unavailable Livan Sharif MD Unavailable Catherine Cm MD Unavailable + Sydnie Martinez RN Unavailable Unavailable Alfonso Renteria MD Unavailable [phone] Esha Grimm PA-C Primary Care Provider Cheng Todd PA-C Unavailable Radha Lomeli JOB PRINTER SUSTAINABLE PRODUCTS MARKETING MANAGER Unavailable Jelena David OD Unavailable Pao Joseph RN Unavailable Unavailable Esha Grimm PA-C Unavailable [phone] Valery Veronica PA-C Unavailable [phone] Rey Tay MD Unavailable Rocky Zepeda DO Unavailable Philip Dumont MD Unavailable Encounter Details Date Type Department Care Team (Late st Contact Info) Description 04/07/2022 MyC Medical Advice [address] [phone] Diana Desir, [facility] [address] [place] [address] Social History Tobacco Use Types [...] How often do you attend mormonism or rastafari serv ices? Never 09/22/2021 Do you belong [...] PHQ-2 Answer Date Recorded PHQ-2 Score 2 12/18/2021 [facility] - Occupational Stress Questionnaire [...] slept in a group home (including now)? No 09/22/2021 [place] Depression Scale Answer Date Recorded [place] Depression Score 5 01/14/2021 Last EPDS Self [...] suspected to have Coronavirus/COVID-19? No / Unsure 04/08/2022 2:49 PM CDT documented as of this encounter Plan of Treatment Upcoming Encounters Date Type Department Care Team (Late st Contact Info) Description 10/25/2023 11:30 AM CDT Virtual Visit [facility] [address] [place] [phone] [address], [address] [place], [place] [address] 11/03/2023 8:00 AM CDT Office Visit [facility] [address]30 [place] [phone] Valery Veronica PA-C [address] [place] [address] 11/29/2023 8:00 AM CDT Office Visit [facility] [address] [place] [phone] Esha Grimm PA-C [address] [place] [phone] 01/02/2024 8:00 AM CDT Office Visit [facility] [place] [address] [place] [phone] Lauren Claudio PA-C [address] [place], [place] [phone] Kelli Perez MD [address] [facility] 106 [place], [place] 500734 documented as of this encounter Visit Diagnoses Not on filedocumented in this encounter Additional Health Concerns Infection Onset Date Last Indicated Resolved Time Rule Out COVID-19 04/26/2022 04/26/2022 04/26/2022 6:47 AM CDT Rule Out COVID-19 05/17/2022 05/17/2022 05/17/2022 10:20 PM RESERVATIONS SPECIALIST Rule Out COVID-19 06/09/2022 06/09/2022 06/09/2022 9:35 AM RESERVATIONS SPECIALIST COVID-19 06/09/2022 06/09/2022 06/30/2022 11:4 1 PM RESERVATIONS SPECIALIST Rule Out COVID-19 11/10/2022 11/10/2022 11/11/2022 12:17 PM CDT Rule Out COVID-19 03/07/2023 03/07/2023 03/07/2023 1:20 PM CDT Assessment Noted Time PHQ-9 Depression Total Score: 2 12/19/19 2:50 PM CDT documented as of this encounter Care Teams Counselor Aide Relationship Specialty Start Date End Date Marija Edgar APRN SUSTAINABLE PRODUCTS MARKETING MANAGER PCP - General Nurse Practitioner 04/30/20 04/14/23 Esha Grimm PAUcheC [address] [place] [phone] PCP - General Family Medicine 05/04/23 Lita Oseguera Personal Advocate & Liaison (PAL) 02/28/20 03/27/23 Marija Edgar APRN SUSTAINABLE PRODUCTS MARKETING MANAGER Assigned PCP 06/08/20 04/29/23 Keisha Dotson MD 909 [place], [place] 332815 Assigned Neuroscience Provider 06/04/20 04/01/23 Diana Desir [facility] 30[address] [place], [place] 208606 Pharmacist Pharmacist 04/17/21 Rain Galaviz PA-C [address] [place] [address] [address] [place] [address] Physician Champion Of Sustainable Design Dermatology 04/28/21 Tavia Wyatt MD [address] [place] [address] [place] [address] Dermatology 07/14/21 Erica Farrell APRN SUSTAINABLE PRODUCTS MARKETING MANAGER [address] [phone] [place] [address] Nurse Practitioner Cardiovascular Disease 09/09/21 Tavia Wyatt MD Assigned Surgical Provider 11/29/21 05/07/22 Rich Barrett MD [address] [facility] [address] [place] [address] Physician Ophthalmology 01/21/22 Neil Kent MD 500 [place] [address] Dermatology 02/24/22 Roney [place] DPM [address] [facility] 300 [place] [address] Assigned Musculoskeletal Provider 03/20/22 08/13/22 Erica Farrell APRN SUSTAINABLE PRODUCTS MARKETING MANAGER 1700 [place] [address] Assigned Heart and Vascular Provider 04/03/22 04/16/22 Diana Desir, [facility] [address] [place] [address] Assigned MTM Pharmacist 04/07/22 Jelena David OD [address] [place] [address] Assigned Surgical Provider 05/08/22 10/08/22 Galo Burrell MD Assigned Heart and Vascular Provider 04/17/22 06/11/22 Livan Sharif MD [address] [place] 156145 Cardiovascular Disease 05/14/22 Livan Sharif MD [address] [place] 785125 Assigned Heart and Vascular Provider 06/12/22 07/23/22 Catherine Cm MD [address] [place] 743335 Cardiovascular Disease 07/21/22 Valery Veronica, PA-C 909 [place] [address] Physician Champion Of Sustainable Design Dermatology 07/21/22 Catherine Cm MD [address] [place] 559895 Assigned Heart and Vascular Provider 07/24/22 11/05/22 Johnny Murillo MD [address] [facility] [address] [place] [address] Assigned Musculoskeletal Provider 08/14/22 10/08/22 Brea Quinn APRN SUSTAINABLE PRODUCTS MARKETING MANAGER 500 [place], [place] 619435 Nurse Practitioner Dermatology 09/21/22 Brea Quinn APRN SUSTAINABLE PRODUCTS MARKETING MANAGER 6401 [place], [place] 904252 Assigned Surgical Provider 10/09/22 [place] [address] [facility] 300 [place], [place] 049577 Assigned Musculoskeletal Provider 10/09/22 Livan Sharif MD [address] [facility] [address] [place] [address] Assigned Heart and Vascular Provider 11/06/22 11/12/22 Catherine Cm MD [address] [facility] [address] [place] [address] Assigned Heart and Vascular Provider 11/13/22 05/27/23 Sydnie Martinez RN Personal Advocate & Liaison (PAL) Family Medicine 03/28/23 07/31/23 Alfonso Renteria MD [address] [facility] 200 [place], [place] 148566 Assigned Neuroscience Provider 04/02/23 Cheng Todd PA-C [address] [place] [address] Assigned PCP 04/30/23 07/15/23 Radha Lomeli APRN SUSTAINABLE PRODUCTS MARKETING MANAGER [address] [facility] [address] [place] 335665 Assigned Heart and Vascular Provider 05/28/23 Jelena David OD [address] [place] [address] MD Ophthalmology 06/15/23 Pao Joseph, VJ Personal Advocate & Liaison (PAL) Nurse 08/01/23 Esha Grimm PA-C [address] [place] [phone] Assigned PCP 07/16/23 Valery Veronica PA-C [address] [place] [address] 188585 Physician Champion Of Sustainable Design Dermatology 09/19/23 Rey Tay MD [address] [place] [address] 141505 Gastroenterology 09/20/23 Rocky Zepeda DO [address] [place] [address] 897355 Physician Gastroenterology 09/20/23 Philip Dumont MD [address] [place] [address] 947405 Physician Ophthalmology 09/22/23 documented as of this encounter
--- OUTSIDE RECORDS SUMMARY | 2023-10-15 21:55 | XMS_ITS | Encounter Summary ---
Author Name Unknown Organization [facility] Address [address] [place] [address] Care Team Providers Care Filler Shredder Helper Name Role Phone Lita Oseguera Unavailable Unavailable Marija Edgar APRN BILLING CONTROL CLERK Primary Care Provider U mandaailMarija Callaway APRN BILLING CONTROL CLERK Unavailable Unavail able Keisha Dotson MD Unavailable [phone] Diana Desir [facility] Unavailable [phone] Rain Galaviz-C Unavailable [phone] Tavia Wyatt MD Unavailable Unavailable Erica Farrell APRN BILLING CONTROL CLERK Unavailable Tavia Wyatt MD Unavailable Unavailable Rich Barrett MD Unavailable [phone] Neil Kent MD Unavailable Roney Story DPM Unavailable [phone] Diana Desir [facility] Unavailable [phone] Jelena David OD Unavailable Galo Burrell MD Unavailable Unavailable Livan Sharif MD Unavailable Livan Sharif MD Unavailable Catherine Cm MD Unavailable + Valery Veronica PA-C Unavailable Catherine Cm MD Unavailable + Johnny Murillo MD Unavailable [phone] Brea Quinn TRACTOR MECHANIC HELPER BILLING CONTROL CLERK Unavailable [phone] Brea Quinn TRACTOR MECHANIC HELPER BILLING CONTROL CLERK Unavailable Jose Francisco Johnson MD Unavailable Livan Sharif MD Unavailable Catherine Cm MD Unavailable + Sydnie Martinez RN Unavailable Unavailable Alfonso Renteria MD Unavailable [phone] Esha Grimm PA-C Primary Care Provider Cheng Todd PA-C Unavailable Radha Lomeli TRACTOR MECHANIC HELPER BILLING CONTROL CLERK Unavailable Jelena David OD Unavailable Pao Joseph RN Unavailable Unavailable Esha Grimm PA-C Unavailable [phone] Valery Veronica PA-C Unavailable [phone] Rey Tay MD Unavailable Rocky Zepeda DO Unavailable Philip Dumont MD Unavailable Encounter Details Date Type Department Care Team (Late st Contact Info) Description 05/01/2022 [facility] [address] [address] Diana Desir, [facility] [address] [place], [place] 078[address] Social History Tobacco Use Types Packs/Day Years [...] How often do you attend adventist or pentecostalism serv ices? Never 09/22/2021 Do you belong [...] Answer Date Recorded PHQ-2 Score 2 12/18/2021 [facility] - Occupational [...] a long term (including now)? No 09/22/2021 [place] Depression Scale Answer Date Recorded [place] Depression Score 5 01/14/2021 Last EPDS Self [...] was confirmed or suspected to have Coronavirus/COVID-19? Unable to assess 05/03/2022 1:12 PM CDT documented as of this encounter Plan of Treatment Upcoming Encounters Date Type Department Care Team (Late st Contact Info) Description 10/25/2023 11:30 AM CDT Virtual Visit [facility] Gastroenterology Clinic [address] [place] [phone] [address], [address] [place] [address] 11/03/2023 8:00 AM CDT Office Visit [address] [phone] Valery Veronica PA-C [address] [place] [address] 11/29/2023 8:00 AM CDT Office Visit [facility] [id number] [place] [address] Esha Grimm PA-C [address] [place] [address] 01/02/2024 8:00 AM CDT Office Visit [facility] [address] [place] [phone] Lauren Claudio PA-C [address] [place] [address] Kelli Perez MD [address] [place] [address] [id number] documented as of this encounter Visit Diagnoses Not on filedocumented in this encounter Additional Health Concerns Infection Onset Date Last Indicated Resolved Time Rule Out COVID-19 05/17/2022 05/17/2022 05/17/2022 10:20 PM GLASS BULB SILVERER Rule Out COVID-19 06/09/2022 06/09/2022 06/09/2022 9:35 AM GLASS BULB SILVERER COVID-19 06/09/2022 06/09/2022 06/30/2022 11:4 1 PM GLASS BULB SILVERER Rule Out COVID-19 11/10/2022 11/10/2022 11/11/2022 12:17 PM CDT Rule Out COVID-19 03/07/2023 03/07/2023 03/07/2023 1:20 PM CDT Assessment Noted Time PHQ-9 Depression Total Score: 2 12/19/19 2:50 PM CDT documented as of this encounter Care Teams Filler Shredder Helper Relationship Specialty Start Date End Date Marija Edgar APRN BILLING CONTROL CLERK PCP - General Nurse Practitioner 04/30/20 04/14/23 Esha Grimm PA-C [address] [place] [address] PCP - General Family Medicine 05/04/23 Lita Oseguera Personal Advocate & Liaison (PAL) 02/28/20 03/27/23 Marija Edgar APRN BILLING CONTROL CLERK Assigned PCP 06/08/20 04/29/23 Keisha Dotson MD [address] [place], [place] 147425 Assigned Neuroscience Provider 06/04/20 04/01/23 Diana Desir [facility] [address] [place], [place] [phone] Pharmacist Pharmacist 04/17/21 Rain Galaviz PA-C [address] [facility] [address] [facility] [place] [address] Physician Web Portal Developer Dermatology 04/28/21 Tavia Wyatt MD [address] [place] [address] [place] [address] Dermatology 07/14/21 Erica Farrell APRN BILLING CONTROL CLERK [address] [place] [address] Nurse Practitioner Cardiovascular Disease 09/09/21 Tavia Wyatt MD Assigned Surgical Provider 11/29/21 05/07/22 Rich Barrett MD [address] [id number] Physician Ophthalmology 01/21/22 Neil Kent MD [address] [place], [place] 10[address]95 Dermatology 02/24/22 Roney Story DPM [address] [facility] [address] [place] [address] Assigned Musculoskeletal Provider 03/20/22 08/13/22 Diana Desir, [facility] [address] [place] [address] Assigned MTM Pharmacist 04/07/22 Jelena David OD [address] [facility] [address] Assigned Surgical Provider 05/08/22 10/08/22 Galo Burrell MD Assigned Heart and Vascular Provider 04/17/22 06/11/22 Livan Sharif MD [address], [facility] [address] [place] [address] Cardiovascular Disease 05/14/22 Livan Sharif MD [address], [facility] [address] [place] [id number] Assigned Heart and Vascular Provider 06/12/22 07/23/22 Catherine Cm MD [address] [facility] [address] [place] [phone] Cardiovascular Disease 07/21/22 Valery Veronica, PA-C [address] [place] [address] 895245 Physician Web Portal Developer Dermatology 07/21/22 Catherine Cm MD [address] [facility] [address] [place] 649875 Assigned Heart and Vascular Provider 07/24/22 11/05/22 Johnny Murillo MD [address] [place] [address] 397324 Assigned Musculoskeletal Provider 08/14/22 10/08/22 Brea Quinn APRN BILLING CONTROL CLERK [address] [place] [address] 825585 Nurse Practitioner Dermatology 09/21/22 Brea Quinn APRN BILLING CONTROL CLERK [address] [place] [address] [place] 955132 Assigned Surgical Provider 10/09/22 [place] [address] [address] [place] [address] Assigned Musculoskeletal Provider 10/09/22 Livan Sharif MD [address], [facility] [address] [place] 644945 Assigned Heart and Vascular Provider 11/06/22 11/12/22 Catherine Cm MD [address] [place] 589895 Assigned Heart and Vascular Provider 11/13/22 05/27/23 Sydnie Martinez RN Personal Advocate & Liaison (PAL) Family Medicine 03/28/23 07/31/23 Alfonso Renteria MD [address] [facility] 200 [place], [place] 822366 Assigned Neuroscience Provider 04/02/23 Cheng Todd PA-C [address] [place] [address] Assigned PCP 04/30/23 07/15/23 Radha Lomeli APRN BILLING CONTROL CLERK [address] [place] 435715 Assigned Heart and Vascular Provider 05/28/23 Jelena David OD [address] [facility] [address] Ophthalmology 06/15/23 Pao Joseph, RN Personal Advocate & Liaison (PAL) Nurse 08/01/23 Esha Grimm PA-C [address] [place] [address] Assigned PCP 07/16/23 Valery Veronica PA-C 9 [place] [address] Physician Web Portal Developer Dermatology 09/19/23 Rey Tay MD [address] [place] [address] [phone] Gastroenterology 09/20/23 Rocky Zepeda DO [address] [place] [address] 046315 Physician Gastroenterology 09/20/23 Philip Dumont MD [address] [place] [address] 880685 Physician Ophthalmology 09/22/23 documented as of this encounter
--- OUTSIDE RECORDS SUMMARY | 2023-10-15 21:55 | XMS_ITS | Encounter Summary ---
Author Name Unknown Organization [facility] Address [address] [place] [address] Care Team Providers Care Relocation Specialist Name Role Phone Lita Oseguera Unavailable Unavailable Marija Edgar APRN STRETCHER AND DRIER Primary Care Provider U mandaailMraija Callaway APRN STRETCHER AND DRIER Unavailable Unavail able Keisha Dotson MD Unavailable [phone] Galo Burrell MD Unavailable Unavailable Diana Desir [facility] Unavailable [phone] Rain Galaviz PA-C Unavailable Summer Lara MD Unavailable [phone] Tavia Wyatt MD Unavailable Unavailable Johnny Murillo MD Unavailable Erica Farrell APRN STRETCHER AND DRIER Unavailable Tavia Wyatt MD Unavailable Unavailable Diana Desir [facility] Unavailable [phone] Rich Barrett MD Unavailable [phone] Neil Kent MD Unavailable Roney Story DPM Unavailable [phone] Erica Farrell APRN STRETCHER AND DRIER Unavailable Diana Desir [facility] Unavailable [phone] Jelena David OD Unavailable [phone] Galo Burrell MD Unavailable Unavailable Livan Sharif MD Unavailable + Livan Sharif MD Unavailable + Catherine Cm MD Unavailable + Valery Veronica PA-C Unavailable [phone] Catherine Cm MD Unavailable + Johnny Murillo MD Unavailable [phone] Brea Quinn ARTIFICIAL FOLIAGE ARRANGER STRETCHER AND DRIER Unavailable [phone] Brea Quinn ARTIFICIAL FOLIAGE ARRANGER STRETCHER AND DRIER Unavailable [phone] Jose Francisco Johnson MD Unavailable Livan Sharif MD Unavailable + Catherine Cm MD Unavailable + Sydnie Martinez RN Unavailable Unavailable Alfonso Renteria MD Unavailable Esha Grimm PA-C Primary Care Provider Cheng Todd PA-C Unavailable Radha Lomeli ARTIFICIAL FOLIAGE ARRANGER STRETCHER AND DRIER Unavailable [phone] Jelena David OD Unavailable Pao Joseph RN Unavailable Unavailable Esha Grimm PA-C Unavailable [phone] Valery Veronica PA-C Unavailable [phone] Rey Tay MD Unavailable Rocky Zepeda DO Unavailable Philip Dumont MD Unavailable [phone] Encounter Details Date Type Department Care Team (Late st Contact Info) Description 12/18/[address] [address] Lauren Claudio PA-C [address] [place] [address] Social History Tobacco Use Types Packs/Day [...] How often do you attend anabaptist or protestant serv ices? Never 09/22/2021 Do you belong to any clubs o r organizations such as anabaptist groups, unions, fraternal or athletic groups, [...] Answer Date Recorded PHQ-2 Score 2 12/18/2021 [facility] Questionnaire Answer [...] slept in a jail (including now)? No 09/22/2021 [place] Depression Scale Answer Date Recorded [place] Depression Score 5 01/14/2021 Last EPDS Self [...] suspected to have Coronavirus/COVID-19? No / Unsure 12/18/2021 2:40 PM CDT documented as of this encounter Miscellaneous Notes * Telephone Encounter - Amalia Deluca - 12/18/2021 11:00 AM CDTSummary: TODAY APPT REQUEST Reason for Call: Other call back Detailed comments: PATIENT HAS APPT WITH Elie CLAUDIO AT 3:10 TODAY, SHE WANTS TO BRING HER DAUGHTER TO GET CHECKED TOO. I EXPLAINED AN APPT IS NEEDED. SHE DECLINED SCHEDULING, WANTS TO TALK TO STAFF ATCLINIC Phone Number Patient can be reached at: Home number on file [phone] (home) Best Time: ANYTIME Can we leave a detailed message on this number? YES Call taken on 12/18/2021 at 11:01 AM by Amalia Deluca documented in this encounter Plan of Treatment Upcoming Encounters Date Type Department Care Team (Late st Contact Info) Description 10/25/2023 11:30 AM CDT Virtual Visit [facility] Gastroenterology Clinic [address] [place] [address] [address], [address] [place], [place] 9[address] 11/03/2023 8:00 AM CDT Office Visit M [address] [address] Valery Veronica, PAUcheC [address] [place] [address] 11/29/2023 8:00 AM CDT Office Visit [facility] [address] [place] [phone] Esha Grimm PA-C [address] [place] [address] 01/02/2024 8:00 AM CDT Office Visit [facility] [address] [place] [phone] Lauren Claudio PA-C [address] [place] [address] Kelli Perez MD [address] [facility] [address] [phone] documented as of this encounter Visit Diagnoses Not on filedocumented in this encounter Additional Health Concerns Infection Onset Date Last Indicated Resolved Time Rule Out COVID-19 12/18/2021 12/18/2021 12/19/2021 11:34 AM CDT Rule Out COVID-19 02/24/2022 02/24/2022 02/25/2022 1:08 PM CDT Rule Out COVID-19 04/26/2022 04/26/2022 04/26/2022 6:47 AM CDT Rule Out COVID-19 05/17/2022 05/17/2022 05/17/2022 10:20 PM GAS DISTRIBUTION SUPERVISOR Rule Out COVID-19 06/09/2022 06/09/2022 06/09/2022 9:35 AM GAS DISTRIBUTION SUPERVISOR COVID-19 06/09/2022 06/09/2022 06/30/2022 11:4 1 PM GAS DISTRIBUTION SUPERVISOR Rule Out COVID-19 11/10/2022 11/10/2022 11/11/2022 12:17 PM CDT Rule Out COVID-19 03/07/2023 03/07/2023 03/07/2023 1:20 PM CDT Assessment Noted Time PHQ-9 Depression Total Score: 2 12/19/19 2:50 PM CDT documented as of this encounter Care Teams Relocation Specialist Relationship Specialty Start Date End Date Marija Edgar APRN STRETCHER AND DRIER PCP - General Nurse Practitioner 04/30/20 04/14/23 Esha Grimm PA-C [address] [place] [phone] PCP - General Family Medicine 05/04/23 Lita Oseguera Personal Advocate & Liaison (PAL) 02/28/20 03/27/23 Marija Edgar APRN STRETCHER AND DRIER Assigned PCP 06/08/20 04/29/23 Keisha Dotson MD [address]09 [place], [place] 438925 Assigned Neuroscience Provider 06/04/20 04/01/23 Galo Burrell MD Assigned Heart and Vascular Provider 10/05/20 04/02/22 Diana Desir, [facility] [address] [place] [address] Pharmacist Pharmacist 04/17/21 Rain Galaviz PA-C [address] [place] [address] [place] [address] Physician File Clerk Data Entry Dermatology 04/28/21 Summer Lara MD [address] [place] [address] Assigned OBGYN Provider 05/31/21 2 Tavia Wyatt MD [address] [place] [address] Dermatology 07/14/21 Johnny Murillo MD [address] [place] [address] Assigned Musculoskeletal Provider 08/30/21 03/17/22 Erica Farrell APRN STRETCHER AND DRIER [address] [facility] [address] [place] [address] Nurse Practitioner Cardiovascular Disease 09/09/21 Tavia Wyatt MD Assigned Surgical Provider 11/29/21 05/07/22 Diana Desir, [facility] [address] [place] [address] Assigned MTM Pharmacist 01/02/22 Rich Barrett MD [address] 735265 Physician Ophthalmology 01/21/22 Neil Kent MD 500 [place] [address] Dermatology 02/24/22 [place] [address] [facility] [address] [place], [place] [address] Assigned Musculoskeletal Provider 03/20/22 08/13/22 Erica Farrell APRN STRETCHER AND DRIER 1700 [place] [address] Assigned Heart and Vascular Provider 04/03/22 04/16/22 Diana Desir, [facility] [address] [place], [place] 702396 Assigned MTM Pharmacist 04/07/22 Frankie Jelenamao Garcia OD [address] [facility] [place] [address] Assigned Surgical Provider 05/08/22 10/08/22 Galo Burrell MD Assigned Heart and Vascular Provider 04/17/22 06/11/22 Livan Sharif MD [address], [address] [place], [place] 8[address] Cardiovascular Disease 05/14/22 Liavn Sharif MD [address], [address] [place], [place] [address] Assigned Heart and Vascular Provider 06/12/22 07/23/22 Catherine Cm MD [address] [place], [place] 7745[address] Cardiovascular Disease 07/21/22 Valery Veronica, PA-C [address] [place], [place] 751785 Physician File Clerk Data Entry Dermatology 07/21/22 Catherine Cm MD [address] [place], [place] 473215 Assigned Heart and Vascular Provider 07/24/22 11/05/22 Johnny Murillo MD [address] [place] [address] Assigned Musculoskeletal Provider 08/14/22 10/08/22 Brea Quinn APRN STRETCHER AND DRIER [address] [facility] [place], [place] 5204[address] Nurse Practitioner Dermatology 09/21/22 Brea Quinn APRN STRETCHER AND DRIER [address] [place], [place] 596632 Assigned Surgical Provider 10/09/22 [place] [address] [facility] [address] [place], [place] 260[address] Assigned Musculoskeletal Provider 10/09/22 Livan Sharif MD [address], [facility] [address] [place] [address] Assigned Heart and Vascular Provider 11/06/22 11/12/22 Catherine Cm MD [address] [facility] [address] [place], [place] 322[address] Assigned Heart and Vascular Provider 11/13/22 05/27/23 Sydnie Martinez RN Personal Advocate & Liaison (PAL) Family Medicine 03/28/23 07/31/23 Alfonso Renteria MD [address] [facility] 200 [place] [address] Assigned Neuroscience Provider 04/02/23 Cheng Todd PA-C [address] [place] [address] Assigned PCP 04/30/23 07/15/23 Radha Lomeli APRN STRETCHER AND DRIER [address] [place] [address] Assigned Heart and Vascular Provider 05/28/23 Jelena David OD [address] [facility] [place] [address] MD Ophthalmology 06/15/23 Pao Joseph, VJ Personal Advocate & Liaison (PAL) Nurse 08/01/23 Esha Grimm PAUcheC [address] [place] [phone] Assigned PCP 07/16/23 Valery Veronica PAUcheC [address] [place], [place] 230845 Physician File Clerk Data Entry Dermatology 09/19/23 Rey Tay MD [address] [place] [address] Gastroenterology 09/20/23 Rocky Zepeda DO [address] [place] [address] 240205 Physician Gastroenterology 09/20/23 Philip Dumont MD [address] [place] [address] 156615 Physician Ophthalmology 09/22/23 documented as of this encounter
--- OUTSIDE RECORDS SUMMARY | 2023-10-15 21:55 | XMS_ITS | Encounter Summary ---
Author Name Unknown Organization [facility] Address [address] [place] [id number] Care Team Providers Care Contract Negotiation Specialist Name Role Phone Lita Oseguera Unavailable Unavailable Marija Edgar APRN LOG CLERK Primary Care Provider U mandaailMarija Callaway APRN LOG CLERK Unavailable Unavail able Keisha Dotson MD Unavailable [phone] Galo Burrell MD Unavailable Unavailable Diana Desir [facility] Unavailable [phone] Rain Galaviz PA-C Unavailable Summer Lara MD Unavailable [phone] Tavia Wyatt MD Unavailable Unavailable Johnny Murillo MD Unavailable [phone] Erica Farrell APRN LOG CLERK Unavailable Tavia Wyatt MD Unavailable Unavailable Diana Desir [facility] Unavailable [phone] Rich Barrett MD Unavailable [phone] Neil Kent MD Unavailable Roney Story DPM Unavailable [phone] Erica Farrell APRN LOG CLERK Unavailable Diana Desir [facility] Unavailable [phone] Jelena David OD Unavailable Galo Burrell MD Unavailable Unavailable Livan Sharif MD Unavailable + Livan Sharif MD Unavailable + Catherine Cm MD Unavailable + Valery Veronica PA-C Unavailable [phone] Catherine Cm MD Unavailable + Johnny Murillo MD Unavailable [phone] Brea Quinn CELLULOID TRIMMER LOG CLERK Unavailable [phone] Brea Quinn CELLULOID TRIMMER LOG CLERK Unavailable [phone] Jose Francisco Johnson MD Unavailable Livan Sharif MD Unavailable + Catherine Cm MD Unavailable + Sydnie Martinez RN Unavailable Unavailable Alfonso Renteria MD Unavailable [phone] Esha Grimm PA-C Primary Care Provider Cheng Todd PA-C Unavailable Radha Lomeli CELLULOID TRIMMER LOG CLERK Unavailable [phone] Jelena David OD Unavailable Pao Joseph RN Unavailable Unavailable Esha Grimm PA-C Unavailable [phone] Valery Veronica PA-C Unavailable [phone] Rey Tay MD Unavailable Rocky Zepeda DO Unavailable Philip Dumont MD Unavailable [phone] Encounter Details Date Type Department Care Team (Late st Contact Info) Description 03/09/2022 [facility] [address] [phone] Abby Dye Social History Tobacco Use Types Packs/Day Years [...] How often do you attend yarsanism or roman catholic serv ices? Never 09/22/2021 [...] Answer Date Recorded PHQ-2 Score 2 12/18/2021 [facility] - Occupational Stress Questionnaire Answer Date [...] a care home (including now)? No 09/22/2021 [place] Depression Scale Answer Date Recorded [place] Depression Score 5 01/14/2021 Last EPDS Self [...] suspected to have Coronavirus/COVID-19? No / Unsure 03/12/2022 10:32 AM CDT documented as of this encounter Plan of Treatment Upcoming Encounters Date Type Department Care Team (Late st Contact Info) Description 10/25/2023 11:30 AM CDT Virtual Visit [facility] [address] 4th [place] [phone] Nelly Mesa, RD [address] [place] [address] 11/03/2023 8:00 AM CDT Office Visit [address] [phone] Valery Veronica PA-C [address] [place] [address] 11/29/2023 8:00 AM CDT Office Visit [facility] [address] [place] [address] [phone] Esha Grimm PA-C [address] [place] [phone] 01/02/2024 8:00 AM CDT Office Visit [facility] [address] [place] [phone] Lauren Claudio PA-C [address] [place], [place] [phone] Kelli Perez MD [address] [place] [address]68 documented as of this encounter Visit Diagnoses Not on filedocumented in this encounter Additional Health Concerns Infection Onset Date Last Indicated Resolved Time Rule Out COVID-19 04/26/2022 04/26/2022 04/26/2022 6:47 AM CDT Rule Out COVID-19 05/17/2022 05/17/2022 05/17/2022 10:20 PM CASHIER CLERK Rule Out COVID-19 06/09/2022 06/09/2022 06/09/2022 9:35 AM CASHIER CLERK COVID-19 06/09/2022 06/09/2022 06/30/2022 11:4 1 PM CASHIER CLERK Rule Out COVID-19 11/10/2022 11/10/2022 11/11/2022 12:17 PM CDT Rule Out COVID-19 03/07/2023 03/07/2023 03/07/2023 1:20 PM CDT Assessment Noted Time PHQ-9 Depression Total Score: 2 12/19/19 2:50 PM CDT documented as of this encounter Care Teams Contract Negotiation Specialist Relationship Specialty Start Date End Date Marija Edgar APRN LOG CLERK PCP - General Nurse Practitioner 04/30/20 04/14/23 Esha Grimm PA-C [address] [place] [phone] PCP - General Family Medicine 05/04/23 Lita Oseguera Personal Advocate & Liaison (PAL) 02/28/20 03/27/23 Marija Edgar APRN LOG CLERK Assigned PCP 06/08/20 04/29/23 Keisha Dotson MD 909 [place] [address] Assigned Neuroscience Provider 06/04/20 04/01/23 Galo Burrell MD Assigned Heart and Vascular Provider 10/05/20 04/02/22 Diana Desir, [facility] 3033 [place] [address] Pharmacist Pharmacist 04/17/21 Rain Galaviz PA-C [address] [place] [address] [place] [address] Physician Tool Filer Hand Dermatology 04/28/21 Summer Lara MD [address] [facility] [place] [address] Assigned OBGYN Provider 05/31/21 2 Tavia Wyatt MD [address] [place] [address] Dermatology 07/14/21 Johnny Murillo MD [address] [facility] [address] [place] [address] Assigned Musculoskeletal Provider 08/30/21 03/17/22 Erica Farrell APRN LOG CLERK [address] [facility] [address] [place] [address] Nurse Practitioner Cardiovascular Disease 09/09/21 Tavia Wyatt MD Assigned Surgical Provider 11/29/21 05/07/22 Diana Desir, [facility] [address] [place] [address] Assigned MTM Pharmacist 01/02/22 Rich Barrett MD 6 [facility], [address] [place] [address] Physician Ophthalmology 01/21/22 Neil Kent MD 500 [place] [address] Dermatology 02/24/22 Roney Story DPM [address] [facility] [address] [place] [address] Assigned Musculoskeletal Provider 03/20/22 08/13/22 Erica Farrell APRN LOG CLERK 1700 [place] [address] Assigned Heart and Vascular Provider 04/03/22 04/16/22 [facility] 3033 [place] [address] Assigned MTM Pharmacist 04/07/22 Jelena David OD [address] [facility] [place] [address] Assigned Surgical Provider 05/08/22 10/08/22 Galo Burrell MD Assigned Heart and Vascular Provider 04/17/22 06/11/22 Livan Sharif MD [address] [place] [address] Cardiovascular Disease 05/14/22 Livan Sharif MD [address] [place] 619845 Assigned Heart and Vascular Provider 06/12/22 07/23/22 Catherine Cm MD [address] [place] [address] [place] [address] Cardiovascular Disease 07/21/22 Valery Veronica, PA-C [address] [place] [address] 170255 Physician Tool Filer Hand Dermatology 07/21/22 Catherine Cm MD [address] [place] 174385 Assigned Heart and Vascular Provider 07/24/22 11/05/22 Johnny Murillo MD [address] [place] [address] Assigned Musculoskeletal Provider 08/14/22 10/08/22 Brea Quinn APRN LOG CLERK [address] [place] [address] 694595 Nurse Practitioner Dermatology 09/21/22 Brea Quinn APRN LOG CLERK [address] [place] [address] 129432 Assigned Surgical Provider 10/09/22 [place] [address] [place] [address] 800567 Assigned Musculoskeletal Provider 10/09/22 Livan Sharif MD [address] [place] [address] [place] 444785 Assigned Heart and Vascular Provider 11/06/22 11/12/22 Catherine Cm MD [address] [place] [address] Assigned Heart and Vascular Provider 11/13/22 05/27/23 Sydnie Martinez RN Personal Advocate & Liaison (PAL) Family Medicine 03/28/23 07/31/23 Alfonso Renteria MD [address] [place], [place] 052856 Assigned Neuroscience Provider 04/02/23 Cheng Todd PA-C [address] [place], [place] [phone] Assigned PCP 04/30/23 07/15/23 Radha Lomeli APRN LOG CLERK [address] [place], [place] 195205 Assigned Heart and Vascular Provider 05/28/23 Jelena David OD [address] [facility] [place] [address] Ophthalmology 06/15/23 Pao Joseph, VJ Personal Advocate & Liaison (PAL) Nurse 08/01/23 Esha Grimm PA-C [address] [place] [phone] Assigned PCP 07/16/23 Valery Veronica PA-C [address] [place] [address] 916205 Physician Tool Filer Hand Dermatology 09/19/23 Rey Tay MD 909 [place], [place] 775805 MD Gastroenterology 09/20/23 Rocky Zepeda DO [address] [place] [address] 989325 Physician Gastroenterology 09/20/23 Philip Dumont MD 6 [place], [place] 166995 Physician Ophthalmology 09/22/23 documented as of this encounter
--- OUTSIDE RECORDS SUMMARY | 2023-10-15 21:55 | XMS_ITS | Encounter Summary ---
Author Name Unknown Organization [facility] Address [address] [place] [address] Care Team Providers Care Logger Driving Horses Name Role Phone Lita Oseguera Unavailable Unavailable Marija Edgar APRN CHEF HEAD Primary Care Provider U mandaailMarija Callaway APRN CHEF HEAD Unavailable Unavail able Keisha Dotson MD Unavailable [phone] Diana Desir [facility] Unavailable [phone] Rain Galaviz-C Unavailable [phone] Tavia Wyatt MD Unavailable Unavailable Erica Farrell APRN CHEF HEAD Unavailable Tavia Wyatt MD Unavailable Unavailable Rich Barrett MD Unavailable [phone] Neil Kent MD Unavailable Roney Sotry DPM Unavailable [phone] Diana Desir [facility] Unavailable [phone] Jelena David OD Unavailable Galo Burrell MD Unavailable Unavailable Livan Sharif MD Unavailable Livan Sharif MD Unavailable Catherine Cm MD Unavailable + Valery Veronica PA-C Unavailable Catherine Cm MD Unavailable + Johnny Murillo MD Unavailable [phone] Brea Quinn ASBESTOS WIRE FINISHER CHEF HEAD Unavailable [phone] Brea Quinn ASBESTOS WIRE FINISHER CHEF HEAD Unavailable Jose Francisco Johnson MD Unavailable Livan Sharif MD Unavailable Catherine Cm MD Unavailable + Sydnie Martinez RN Unavailable Unavailable Alfonso Renteria MD Unavailable Esha Grimm PA-C Primary Care Provider Cheng Todd PA-C Unavailable Radha Lomeli ASBESTOS WIRE FINISHER CHEF HEAD Unavailable Jelena David OD Unavailable Pao Joseph RN Unavailable Unavailable Esha Grimm PA-C Unavailable Valery Veronica PA-C Unavailable [phone] Rey Tay MD Unavailable Rocky Zepeda DO Unavailable Philip Dumont MD Unavailable Encounter Details Date Type Department Care Team (Late st Contact Info) Description 04/20/2022 My[facility] Medical Advice [facility] [place] [id number] [facility] [address] [place] [phone] Margaret Rendon, RN Social History Tobacco Use [...] How often do you attend yazdanism or yazidi serv ices? Never 09/22/2021 Do you belong to any clubs o r organizations such as yazdanism groups, unions, fraternal or athletic groups, [...] Answer Date Recorded PHQ-2 Score 2 12/18/2021 [facility] - [...] or slept in a detention (including now)? No 09/22/2021 [place] Depression Scale Answer Date Recorded [place] Depression Score 5 01/14/2021 Last EPDS [...] Description 10/25/2023 11:30 AM CDT Virtual Visit [facility] G[facility]ology [facility] [address] 4th [place] [phone] [address], RD [address] [place] [address] 11/03/2023 8:00 AM CDT Office Visit [address] [phone] Valery Veronica PA-C [address] [place] [address] 11/29/2023 8:00 AM CDT Office Visit [facility] [address] [place] [phone] Esha Grimm PA-C [address] [place] [address] 01/02/2024 8:00 AM CDT Office Visit [facility] [address] [place] [phone] Lauren Claudio PA-C [address] [place], [place] [phone] Kelli Perez MD [address] [place] [address] 654544 documented as of this encounter Visit Diagnoses Not on filedocumented in this encounter Additional Health Concerns Infection Onset Date Last Indicated Resolved Time Rule Out COVID-19 04/26/2022 04/26/2022 04/26/2022 6:47 AM CDT Rule Out COVID-19 05/17/2022 05/17/2022 05/17/2022 10:20 PM GAME 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 Rule Out COVID-19 06/09/2022 06/09/2022 06/09/2022 9:35 AM GAME 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 COVID-19 06/09/2022 06/09/2022 06/30/2022 11:4 1 PM GAME 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 Rule Out COVID-19 11/10/2022 11/10/2022 11/11/2022 12:17 PM CDT Rule Out COVID-19 03/07/2023 03/07/2023 03/07/2023 1:20 PM CDT Assessment Noted Time PHQ-9 Depression Total Score: 2 12/19/19 2:50 PM CDT documented as of this encounter Care Teams Logger Driving Horses Relationship Specialty Start Date End Date Marija Edgar APRN CHEF HEAD PCP - General Nurse Practitioner 04/30/20 04/14/23 Esha Grimm PA-C [address] [place] [phone] PCP - General Family Medicine 05/04/23 Lita Oseguera Personal Advocate & Liaison (PAL) 02/28/20 03/27/23 Marija Edgar APRN CHEF HEAD Assigned PCP 06/08/20 04/29/23 Keisha Dotson MD 909 [place], [place] 173925 Assigned Neuroscience Provider 06/04/20 04/01/23 Diana Desir [facility] 3033 [place], [place] 822636 Pharmacist Pharmacist 04/17/21 Rain Galaviz PA-C [address] [place] [address] [place] [address] Physician Montessori Lead Teacher Dermatology 04/28/21 Tavia Wyatt MD [address] [place] [address] [place] [address] Dermatology 07/14/21 Erica Farrell APRN CHEF HEAD [address] [place] [address] Nurse Practitioner Cardiovascular Disease 09/09/21 Tavia Wyatt MD Assigned Surgical Provider 11/29/21 05/07/22 Rich Barrett MD [address] [phone] Physician Ophthalmology 01/21/22 Neil Kent MD 500 [place], [place] 832955 Dermatology 02/24/22 Roney Story DPM [address] [facility] [address] [place], [place] 796247 Assigned Musculoskeletal Provider 03/20/22 08/13/22 Diana Desir, [facility] [address] [place] [address] Assigned MTM Pharmacist 04/07/22 Jelena David OD [address] [facility] [place] [address] Assigned Surgical Provider 05/08/22 10/08/22 Galo Burrell MD Assigned Heart and Vascular Provider 04/17/22 06/11/22 Livan Sharif MD [address], [facility] [address] [place] [phone] Cardiovascular Disease 05/14/22 Livan Sharif MD [address], [facility] [address] [place] [phone] Assigned Heart and Vascular Provider 06/12/22 07/23/22 Catherine Cm MD [address] [facility] [place] 968975 Cardiovascular Disease 07/21/22 Valery Veronica PAUcheC [address] [place] [address] 944595 Physician Montessori Lead Teacher Dermatology 07/21/22 Catherine Cm MD [address] [facility] [place] 254205 Assigned Heart and Vascular Provider 07/24/22 11/05/22 Johnny Murillo MD [address] [place] [address] 474804 Assigned Musculoskeletal Provider 08/14/22 10/08/22 Brea Quinn APRN CHEF HEAD [address] [place] [address] 750235 Nurse Practitioner Dermatology 09/21/22 Brea Quinn APRN CHEF HEAD [address] [place] [address] [facility] [place] 889672 Assigned Surgical Provider 10/09/22 [place] [address] [address] [place] [address] Assigned Musculoskeletal Provider 10/09/22 Livan Sharif MD [address], [facility] [address] [place] 834415 Assigned Heart and Vascular Provider 11/06/22 11/12/22 Catherine Cm MD [address] [facility] [address] [place] 432515 Assigned Heart and Vascular Provider 11/13/22 05/27/23 Sydnie Martinez RN Personal Advocate & Liaison (PAL) Family Medicine 03/28/23 07/31/23 Alfonso Renteria MD [address] [facility] 200 [place] [address] Assigned Neuroscience Provider 04/02/23 Cheng Todd PA-C [address] [place] [address] Assigned PCP 04/30/23 07/15/23 Radha Lomeli APRN CHEF HEAD [address] [place] 738945 Assigned Heart and Vascular Provider 05/28/23 Jelena David OD [address] [facility] [place] [address] Ophthalmology 06/15/23 Pao Joseph, RN Personal Advocate & Liaison (PAL) Nurse 08/01/23 Esha Grimm PA-C [address] [place] [address]-180383 Assigned PCP 07/16/23 Vaelry Veronica PA-C [address] [place] [address] Physician Montessori Lead Teacher Dermatology 09/19/23 Rey Tay MD [address] [place] [address] Gastroenterology 09/20/23 Rocky Zepeda DO [address] [place] [address] Physician Gastroenterology 09/20/23 Philip Dumont MD [address] [place] [address] Physician Ophthalmology 09/22/23 documented as of this encounter
--- OUTSIDE RECORDS SUMMARY | 2023-10-15 21:55 | XMS_ITS | Encounter Summary ---
Author Name Unknown Organization [facility] Address [address] [place] [address] Care Team Providers Care Radiator Core Tester Name Role Phone Lita Oseguera Unavailable Unavailable Marija Edgar APRN FUR REPAIR INSPECTOR Primary Care Provider U mandaailMarija Callaway APRN FUR REPAIR INSPECTOR Unavailable Unavail able Mynor Broussard MD Unavailable [phone] Keisha Dotson MD Unavailable Galo Burrell MD Unavailable Unavailable Diana Desir [facility] Unavailable Rain Galaviz PA-C Unavailable Summer Lara MD Unavailable [phone] Tavia Wyatt MD Unavailable Unavailable Johnny Murillo MD Unavailable Erica Farrell APRN FUR REPAIR INSPECTOR Unavailable Tavia Wyatt MD Unavailable Unavailable Diana Desir [facility] Unavailable [phone] Rich Barrett MD Unavailable [phone] Neil Kent MD Unavailable Roney Story DPM Unavailable [phone] Erica Farrell APRN FUR REPAIR INSPECTOR Unavailable Diana Desir [facility] Unavailable [phone] Jelena David OD Unavailable Galo Burrell MD Unavailable Unavailable Livan Sharif MD Unavailable + Livan Sharif MD Unavailable + Catherine Cm MD Unavailable + Valery Veronica-C Unavailable [phone] Catherine Cm MD Unavailable + Johnny Murillo MD Unavailable [phone] Brea Quinn MUSIC ASSISTANT FUR REPAIR INSPECTOR Unavailable [phone] Brea Quinn MUSIC ASSISTANT FUR REPAIR INSPECTOR Unavailable [phone] Jose Francisco Johnson MD Unavailable + Livan Sharif MD Unavailable + IsCatherine hobbs MD Unavailable + Sydnie Martinez RN Unavailable Unavailable Alfonso Renteria MD Unavailable Esha Grimm-C Primary Care Provider Cheng Todd PA-C Unavailable Radha Lomeli MUSIC ASSISTANT FUR REPAIR INSPECTOR Unavailable [phone] Jelena David OD Unavailable Pao Joseph RN Unavailable Unavailable Esha Grimm PA-C Unavailable [phone] Valery Veronica PA-C Unavailable [phone] Rey Tay MD Unavailable Rocky Zepeda DO Unavailable Philip Dumont MD Unavailable [phone] Encounter Details Date Type Department Care Team (Late st Contact Info) Description 11/16/2021 [facility] Medical Advice [address] [address] Diana Desir, [facility] [address] [place] [address] Social History Tobacco Use Types Packs/Day Years [...] How often do you attend caodaism or latter day serv ices? Never 09/22/2021 Do you belong [...] Answer Date Recorded PHQ-2 Score 2 09/22/2021 [facility] - Occupational Stress Questionnaire Answer Date Recorded [...] or slept in a snf (including now)? No 09/22/2021 [place] Depression Scale Answer Date Recorded [place] Depression Score 5 01/14/2021 Last EPDS Self [...] Virtual Visit [facility] [address] [place] [address] [address], [address] [place] [address] 11/03/2023 8:00 AM CDT Office Visit [address] [phone] Valery Veronica PA-C [address] [place] [address] 11/29/2023 8:00 AM CDT Office [facility] [address] [place] [phone] Esha Grimm PA-C [address] [place] [address] 01/02/2024 8:00 AM CDT Office Visit [facility] [address] [place] [phone] Lauren Claudio PA-C [address] [place] [address] Kelli Perez MD [address] [place] [address] documented as of this encounter Visit Diagnoses Not on filedocumented in this encounter Additional Health Concerns Infection Onset Date Last Indicated Resolved Time Rule Out COVID-19 12/18/2021 12/18/2021 12/19/2021 11:34 AM CDT Rule Out COVID-19 02/24/2022 02/24/2022 02/25/2022 1:08 PM CDT Rule Out COVID-19 04/26/2022 04/26/2022 04/26/2022 6:47 AM CDT Rule Out COVID-19 05/17/2022 05/17/2022 05/17/2022 10:20 PM WAD PRINTING 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 Rule Out COVID-19 06/09/2022 06/09/2022 06/09/2022 9:35 AM WAD PRINTING 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 COVID-19 06/09/2022 06/09/2022 06/30/2022 11:4 1 PM WAD PRINTING 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 Rule Out COVID-19 11/10/2022 11/10/2022 11/11/2022 12:17 PM CDT Rule Out COVID-19 03/07/2023 03/07/2023 03/07/2023 1:20 PM CDT Assessment Noted Time PHQ-9 Depression Total Score: 2 04/02/20 21 10:19 AM CDT documented as of this encounter Care Teams Radiator Core Tester Relationship Specialty Start Date End Date Marija Edgar APRN FUR REPAIR INSPECTOR PCP - General Nurse Practitioner 04/30/20 04/14/23 Esha Grimm PA-C [address] [place] [address] PCP - General Family Medicine 05/04/23 Lita Oseguera Personal Advocate & Liaison (PAL) 02/28/20 03/27/23 Marija Edgar APRN FUR REPAIR INSPECTOR Assigned PCP 06/08/20 04/29/23 Mynor Broussard MD 6363 [facility] 500 [place] [address] Assigned Surgical Provider 06/01/20 11/28/21 Keisha Dotson MD 909 [place] [address] Assigned Neuroscience Provider 06/04/20 04/01/23 Galo Burrell MD Assigned Heart and Vascular Provider 10/05/20 04/02/22 [facility] [address] [place] [address] Pharmacist Pharmacist 04/17/21 Rain Galaviz PA-C [address] [place] [address] [address] [place] [address] Physician Outside Sales Account Manager Dermatology 04/28/21 Summer Lara MD [address] [place] [address] Assigned OBGYN Provider 05/31/21 2 Tavia Wyatt MD [address] [facility] [address] Dermatology 07/14/21 Johnny Murillo MD [address] [facility] [address] [place] [address] Assigned Musculoskeletal Provider 08/30/21 03/17/22 Erica Farrell APRN FUR REPAIR INSPECTOR 6405 [facility] [address] [place] [address] Nurse Practitioner Cardiovascular Disease 09/09/21 Tavia Wyatt MD Assigned Surgical Provider 11/29/21 05/07/22 Diana Desri, [facility] [address] [place] [address] Assigned MTM Pharmacist 01/02/22 Rich Barrett MD [address] [address] Physician Ophthalmology 01/21/22 Neil Kent MD 500 [place], [place] [address] Dermatology 02/24/22 Roney Story DPM [address] [facility] 300 [place] [address] Assigned Musculoskeletal Provider 03/20/22 08/13/22 Erica Farrell APRN FUR REPAIR INSPECTOR 1700 [place] [address] Assigned Heart and Vascular Provider 04/03/22 04/16/22 Diana Desir, [facility] [address] [place] [address] Assigned MTM Pharmacist 04/07/22 Jelena David OD [address] [facility] [place] [id number] Assigned Surgical Provider 05/08/22 10/08/22 Galo Burrell MD Assigned Heart and Vascular Provider 04/17/22 06/11/22 Livan Sharif MD [address], [facility] [address] [place] 6[address] Cardiovascular Disease 05/14/22 Livan Sharif MD [address], [facility] [address] [place] [phone] Assigned Heart and Vascular Provider 06/12/22 07/23/22 Cathernie Cm MD [address] [facility]00 [place] [id number] Cardiovascular Disease 07/21/22 Valery Veronica, PAUcheC [address] [place] [address] 464345 Physician Outside Sales Account Manager Dermatology 07/21/22 Catherine Cm MD [address] [facility] [address] [place] [id number] Assigned Heart and Vascular Provider 07/24/22 11/05/22 Johnny Murillo MD [address] [id number] Assigned Musculoskeletal Provider 08/14/22 10/08/22 Brea Quinn APRN FUR REPAIR INSPECTOR [address] [place] [address] 430475 Nurse Practitioner Dermatology 09/21/22 Brea Quinn, MUSIC ASSISTANT FUR REPAIR INSPECTOR 6401 [facility] [place] [id number] Assigned Surgical Provider 10/09/22 [place] [address] [facility] 300 [place] [address] Assigned Musculoskeletal Provider 10/09/22 Livan Sharif MD [address], [facility] [address] [place] [address] Assigned Heart and Vascular Provider 11/06/22 11/12/22 Catherine Cm MD [address] [address] [place] [address] Assigned Heart and Vascular Provider 11/13/22 05/27/23 JuanSydnie malik RN Personal Advocate & Liaison (PAL) Family Medicine 03/28/23 07/31/23 Alfonso Renteria MD 5775 [facility] 200 [place] [address] Assigned Neuroscience Provider 04/02/23 Cheng Todd PA-C [address] [place] [address] Assigned PCP 04/30/23 07/15/23 Radha Lomeli APRN FUR REPAIR INSPECTOR [address] [place] [address] Assigned Heart and Vascular Provider 05/28/23 Jelena David OD [address] [facility] [address] Ophthalmology 06/15/23 Pao Joseph, RN Personal Advocate & Liaison (PAL) Nurse 08/01/23 Esha Grimm PA-C [address] [place] [phone] Assigned PCP 07/16/23 Valery Veronica PA-C 909 [place] [address] Physician Outside Sales Account Manager Dermatology 09/19/23 Rey Tay MD [address] [place] [address] 773215 Gastroenterology 09/20/23 Rocky Zepeda DO [address] [place] [address] Physician Gastroenterology 09/20/23 Philip Dumont MD [address] [place] [address] 97[address] Physician Ophthalmology 09/22/23 documented as of this encounter
--- OUTSIDE RECORDS SUMMARY | 2023-10-15 21:55 | XMS_ITS | Encounter Summary ---
Author Name Unknown Organization [facility] Address [address] [place] [address] Care Team Providers Care Supply Teacher Name Role Phone Lita Oseguera Unavailable Unavailable Marija Edgar APRN DISTRIBUTION DISTRICT SUPERVISOR Primary Care Provider U mandaailMarija Callaway APRN DISTRIBUTION DISTRICT SUPERVISOR Unavailable Unavail able Keisha Dotson MD Unavailable [phone] Galo Burrell MD Unavailable Unavailable Diana Desir [facility] Unavailable [phone] Rain Galaviz PA-C Unavailable Summer Lara MD Unavailable [phone] Tavia Wyatt MD Unavailable Unavailable Johnny Murillo MD Unavailable Erica Farrell APRN DISTRIBUTION DISTRICT SUPERVISOR Unavailable Tavia Wyatt MD Unavailable Unavailable Diana Desir [facility] Unavailable [phone] Rich Barrett MD Unavailable [phone] Neil Kent MD Unavailable Roney Story DPM Unavailable [phone] Erica Farrell APRN DISTRIBUTION DISTRICT SUPERVISOR Unavailable Diana Desir [facility] Unavailable [phone] Jelena David OD Unavailable Galo Burrell MD Unavailable Unavailable Livan Sharif MD Unavailable + Livan Sharif MD Unavailable + Catherine Cm MD Unavailable + Valery Veronica PA-C Unavailable [phone] Catherine Cm MD Unavailable + Johnny Murillo MD Unavailable +[phone] Brea Quinn ENGAGEMENT ENGINEER DISTRIBUTION DISTRICT SUPERVISOR Unavailable [phone] Brea Quinn ENGAGEMENT ENGINEER DISTRIBUTION DISTRICT SUPERVISOR Unavailable [phone] Jose Francisco Johnson MD Unavailable Livan Sharif MD Unavailable + Catherine Cm MD Unavailable + Sydnie Martinez RN Unavailable Unavailable Alfonso Renteria MD Unavailable [phone] Esha Grimm PA-C Primary Care Provider Cheng Todd PA-C Unavailable Radha Lomeli ENGAGEMENT ENGINEER DISTRIBUTION DISTRICT SUPERVISOR Unavailable [phone] Jelena David OD Unavailable [phone] Pao Joseph RN Unavailable Unavailable Esha Grimm PA-C Unavailable [phone] Valery Veronica PA-C Unavailable [phone] Rey Tay MD Unavailable Rocky Zepeda DO Unavailable Philip Dumont MD Unavailable [phone] Encounter Details Date Type Department Care Team (Late st Contact Info) Description 12/03/2021 [facility] [address] [address] Debbie Hdez MA Social History Tobacco Use Types Packs/Day Years [...] How often do you attend evangelical or congregational serv ices? Never 09/22/2021 Do you belong to any clubs o r organizations such as evangelical groups, unions, fraternal or athletic groups, [...] Answer Date Recorded PHQ-2 Score 2 09/22/2021 [facility] - [...] in a usp (including now)? No 09/22/2021 [place] Depression Scale Answer Date Recorded [place] Depression Score 5 01/14/2021 Last EPDS Self [...] [facility] [address] 4th [place] [phone] [address], [address] [place] [address] 11/03/2023 8:00 AM CDT Office Visit [address] [phone] Valery Veronica PA-C [address] [place] [address] 11/29/2023 8:00 AM CDT Office Visit [facility] [address] [place] [phone] Esha Grimm PA-C [address] [place] [phone] 01/02/2024 8:00 AM CDT Office Visit [facility] Sleep [facility] [address] [place] [phone] Lauren Claudio PA-C [address] [place], [place] [phone] Kelli Perez MD [address] [place] [address] documented as of this encounter Visit Diagnoses Not on filedocumented in this encounter Additional Health Concerns Infection Onset Date Last Indicated Resolved Time Rule Out COVID-19 12/18/2021 12/18/2021 12/19/2021 11:34 AM CDT Rule Out COVID-19 02/24/2022 02/24/2022 02/25/2022 1:08 PM CDT Rule Out COVID-19 04/26/2022 04/26/2022 04/26/2022 6:47 AM CDT Rule Out COVID-19 05/17/2022 05/17/2022 05/17/2022 10:20 PM DENTAL SURGERY DOCTOR Rule Out COVID-19 06/09/2022 06/09/2022 06/09/2022 9:35 AM DENTAL SURGERY DOCTOR COVID-19 06/09/2022 06/09/2022 06/30/2022 11:4 1 PM DENTAL SURGERY DOCTOR Rule Out COVID-19 11/10/2022 11/10/2022 11/11/2022 12:17 PM CDT Rule Out COVID-19 03/07/2023 03/07/2023 03/07/2023 1:20 PM CDT Assessment Noted Time PHQ-9 Depression Total Score: 2 04/02/20 21 10:19 AM CDT documented as of this encounter Care Teams Supply Teacher Relationship Specialty Start Date End Date Marija Edgar APRN DISTRIBUTION DISTRICT SUPERVISOR PCP - General Nurse Practitioner 04/30/20 04/14/23 Esha Grimm PA-C [address] [place] [phone] PCP - General Family Medicine 05/04/23 Lita Oseguera Personal Advocate & Liaison (PAL) 02/28/20 03/27/23 Marija Edgar APRN DISTRIBUTION DISTRICT SUPERVISOR Assigned PCP 06/08/20 04/29/23 Keisha Dotson MD [address] [place] [address] [place] [address] Assigned Neuroscience Provider 06/04/20 04/01/23 Galo Burrell MD Assigned Heart and Vascular Provider 10/05/20 04/02/22 Diana Desir, [facility] 3033 [place] [address] Pharmacist Pharmacist 04/17/21 Rain Galaviz PA-C [address] [place] [address] [place] [address] Physician Decorative Engraver Apprentice Dermatology 04/28/21 Summer Lara MD [address] [place] [address] 442994 Assigned OBGYN Provider 05/31/21 2 Tavia Wyatt MD [address] [place] [address] Dermatology 07/14/21 Johnny Murillo MD [facility] [address] [address] Assigned Musculoskeletal Provider 08/30/21 03/17/22 Erica Farrell APRN DISTRIBUTION DISTRICT SUPERVISOR 6405 [facility] [address] [place], [place] 7[address] Nurse Practitioner Cardiovascular Disease 09/09/21 Tavia Wyatt MD Assigned Surgical Provider 11/29/21 05/07/22 Diana Desir, [facility] [address] [place] [address] Assigned MTM Pharmacist 01/02/22 Rich Barrett MD [address] [address] Physician Ophthalmology 01/21/22 Neil Kent MD 500 [place] [address] Dermatology 02/24/22 Roney Story DPM [address] [facility] [address] [place] [address] Assigned Musculoskeletal Provider 03/20/22 08/13/22 Erica Farrell APRN DISTRIBUTION DISTRICT SUPERVISOR 1700 [place] [address] Assigned Heart and Vascular Provider 04/03/22 04/16/22 Diana Desir, [facility] [address]33 [place] [address] Assigned MTM Pharmacist 04/07/22 Jelena David OD [address] [facility] [place] [address] Assigned Surgical Provider 05/08/22 10/08/22 Galo Burrell MD Assigned Heart and Vascular Provider 04/17/22 06/11/22 Livan Sharif MD [address] , [facility] [address] [place] 4[address] Cardiovascular Disease 05/14/22 Livan Sharif MD [address], [facility] [address] [place] [address] Assigned Heart and Vascular Provider 06/12/22 07/23/22 Catherine Cm MD [address] [facility]00 [place] 431675 Cardiovascular Disease 07/21/22 Valery Veronica, PAUcheC [address] [place] [address] 922965 Physician Decorative Engraver Apprentice Dermatology 07/21/22 Catherine Cm MD [address] [facility] [place] 7[address]25 Assigned Heart and Vascular Provider 07/24/22 11/05/22 Johnny Murillo MD [address] [place] [address] 931834 Assigned Musculoskeletal Provider 08/14/22 10/08/22 Brea Quinn APRN DISTRIBUTION DISTRICT SUPERVISOR [address] [place] [address] 215325 Nurse Practitioner Dermatology 09/21/22 Brea Quinn APRN DISTRIBUTION DISTRICT SUPERVISOR [address] [place] [address] [place]E [id number] Assigned Surgical Provider 10/09/22 [place] [address] [place] [address] [place] 650877 Assigned Musculoskeletal Provider 10/09/22 Livan Sharif MD [address], [facility] [address] [place] [address] Assigned Heart and Vascular Provider 11/06/22 11/12/22 Catherine Cm MD [address] [address] [place] [address] Assigned Heart and Vascular Provider 11/13/22 05/27/23 Sydnie Martinez, RN Personal Advocate & Liaison (PAL) Family Medicine 03/28/23 07/31/23 Alfonso Renteria MD [facility] 200 [place] [address] Assigned Neuroscience Provider 04/02/23 Cheng Todd PA-C [address] [place], [place] [phone] Assigned PCP 04/30/23 07/15/23 Radha Lomeli, ARLENE DISTRIBUTION DISTRICT SUPERVISOR [address] [place] 363905 Assigned Heart and Vascular Provider 05/28/23 Jelena David OD [address] [facility] [place] [address] Ophthalmology 06/15/23 Pao Joseph, RN Personal Advocate & Liaison (PAL) Nurse 08/01/23 Esha Grimm PA-C [address] [place] [phone] Assigned PCP 07/16/23 Valery Veronica, PABaldo 9 [place] [address] Physician Decorative Engraver Apprentice Dermatology 09/19/23 Rey Tay MD [address] [place] [address] MD Gastroenterology 09/20/23 Rocky Zepeda DO [address] [place] [address] Physician Gastroenterology 09/20/23 Philip Dumont MD [address] [place] [address] 816825 Physician Ophthalmology 09/22/23 documented as of this encounter
--- OUTSIDE RECORDS SUMMARY | 2023-10-15 21:55 | XMS_ITS | Encounter Summary ---
Author Name Unknown Organization [employer] Address [address] [place] [address] Care Team Providers Care Duty Officer Name Role Phone Lita Oseguera Unavailable Unavailable Marija Edgar APRN TRAY LINE SUPERVISOR Primary Care Provider U mandaailMarija Callaway APRN TRAY LINE SUPERVISOR Unavailable Unavail able Keisha Dotson MD Unavailable [phone] Galo Burrell MD Unavailable Unavailable Diana Desir [facility] Unavailable [phone] Rain Galaviz PA-C Unavailable Summer Lara MD Unavailable [phone] Tavia Wyatt MD Unavailable Unavailable Johnny Murillo MD Unavailable [phone] Erica Farrell APRN TRAY LINE SUPERVISOR Unavailable Tavia Wyatt MD Unavailable Unavailable Diana Desir [facility] Unavailable [phone] Rich Barrett MD Unavailable [phone] Neil Kent MD Unavailable Roney Story DPM Unavailable [phone] Erica Farrell APRN TRAY LINE SUPERVISOR Unavailable Diana Desir [facility] Unavailable [phone] Jelena David OD Unavailable Galo Burrell MD Unavailable Unavailable Livan Sharif MD Unavailable + Livan Sharif MD Unavailable + Catherine Cm MD Unavailable + Valery Veronica PA-C Unavailable [phone] Catherine Cm MD Unavailable + Johnny Murillo MD Unavailable [phone] Brea Quinn CLIENT SERVICES MANAGER TRAY LINE SUPERVISOR Unavailable [phone] Brea Quinn CLIENT SERVICES MANAGER TRAY LINE SUPERVISOR Unavailable [phone] Jose Francisco Johnson MD Unavailable Livan Sharif MD Unavailable + Catherine Cm MD Unavailable + Sydnie Martinez RN Unavailable Unavailable Alfonso Renteria MD Unavailable Esha Grimm PA-C Primary Care Provider Cheng Todd PA-C Unavailable Radha Lomeli CLIENT SERVICES MANAGER TRAY LINE SUPERVISOR Unavailable [phone] Jelena David OD Unavailable Pao Joseph RN Unavailable Unavailable Esha Grimm PA-C Unavailable Valery Veronica PA-C Unavailable [phone] Rey Tay MD Unavailable Rocky Zepeda DO Unavailable Philip Dumont MD Unavailable [phone] Encounter Details Date Type Department Care Team (Late st Contact Info) Description 01/22/2022 [facility] [address] [address] Diana Desir, [facility] [address] [place] [address] Social History Tobacco Use Types Packs/Day Years [...] How often do you attend latter-day or jew serv ices? Never 09/22/2021 Do you belong [...] Answer Date Recorded PHQ-2 Score 2 12/18/2021 [facility] - Occupational Stress Questionnaire Answer Date Recorded [...] or slept in a custodial (including now)? No 09/22/2021 [place] Depression Scale Answer Date Recorded [place] Depression Score 5 01/14/2021 Last EPDS Self [...] suspected to have Coronavirus/COVID-19? No / Unsure 01/23/2022 12:05 AM CDT documented as of this encounter Plan of Treatment Upcoming Encounters Date Type Department Care Team (Late st Contact Info) Description 10/25/2023 11:30 AM CDT Virtual Visit [facility] [address] [phone] [place], [address] [place] [address] 11/03/2023 8:00 AM CDT Office Visit [facility] [address] [place] [phone] Valery Veronica PA-C [address] [place] [address] 11/29/2023 8:00 AM CDT Office Visit [facility] [address] [place] [address] Esah Grimm PA-C [address] [place] [address] 01/02/2024 8:00 AM CDT Office Visit [facility] [address] [place] [phone] Lauren Claudio PA-C [address] [place], [place] [phone] Kelli Perez MD [address] [place] [address] documented as of this encounter Visit Diagnoses Not on filedocumented in this encounter Additional Health Concerns Infection Onset Date Last Indicated Resolved Time Rule Out COVID-19 02/24/2022 02/24/2022 02/25/2022 1:08 PM CDT Rule Out COVID-19 04/26/2022 04/26/2022 04/26/2022 6:47 AM CDT Rule Out COVID-19 05/17/2022 05/17/2022 05/17/2022 10:20 PM EXECUTIVE RECRUITER Rule Out COVID-19 06/09/2022 06/09/2022 06/09/2022 9:35 AM EXECUTIVE RECRUITER COVID-19 06/09/2022 06/09/2022 06/30/2022 11:4 1 PM EXECUTIVE RECRUITER Rule Out COVID-19 11/10/2022 11/10/2022 11/11/2022 12:17 PM CDT Rule Out COVID-19 03/07/2023 03/07/2023 03/07/2023 1:20 PM CDT Assessment Noted Time PHQ-9 Depression Total Score: 2 12/19/19 2:50 PM CDT documented as of this encounter Care Teams Duty Officer Relationship Specialty Start Date End Date Marija Edgar APRN TRAY LINE SUPERVISOR PCP - General Nurse Practitioner 04/30/20 04/14/23 Esha Grimm PA-C [address] [place] [phone] PCP - General Family Medicine 05/04/23 Lita Oseguera Personal Advocate & Liaison (PAL) 02/28/20 03/27/23 Marija Edgar APRN TRAY LINE SUPERVISOR Assigned PCP 06/08/20 04/29/23 Keisha Dotson MD 909 [place] [address] Assigned Neuroscience Provider 06/04/20 04/01/23 Galo Burrell MD Assigned Heart and Vascular Provider 10/05/20 04/02/22 Diana Desir, [facility] [address] [place] [address] Pharmacist Pharmacist 04/17/21 Rain Galaviz PA-C [address] [place] [address] [place] [address] Physician Office Administrative Assistant Dermatology 04/28/21 Summer Lara MD [address] [place], [place] [address] [address] Assigned OBGYN Provider 05/31/21 2 Tavia Wyatt MD [address] [place] [address] Dermatology 07/14/21 Johnny Murillo MD [facility] [address] Assigned Musculoskeletal Provider 08/30/21 03/17/22 Erica Farrell APRN TRAY LINE SUPERVISOR [address] [facility] [address] [place] [address] Nurse Practitioner Cardiovascular Disease 09/09/21 Tavia Wyatt MD Assigned Surgical Provider 11/29/21 05/07/22 Diana Desir, [facility] [address] [place] [address] Assigned MTM Pharmacist 01/02/22 Rich Barrett MD 516 [facility] 9A [place] [address] Physician Ophthalmology 01/21/22 Neil Kent MD 500 [place] [address] Dermatology 02/24/22 Roney Story DPM [address] [facility] [address] [place] [address] Assigned Musculoskeletal Provider 03/20/22 08/13/22 Erica Farrell APRN TRAY LINE SUPERVISOR 1700 [place] [address] Assigned Heart and Vascular Provider 04/03/22 04/16/22 Diana Desir, [facility] [address] [place] [address] Assigned MTM Pharmacist 04/07/22 [place] David OD [address] [place] [address] Assigned Surgical Provider 05/08/22 10/08/22 Galo Burrell MD Assigned Heart and Vascular Provider 04/17/22 06/11/22 Livan Sharif MD 6405 [facility] [place] , [facility] [address] [place] [id number] Cardiovascular Disease 05/14/22 Livan Sharif MD [address] [facility]00 [place] [address] Assigned Heart and Vascular Provider 06/12/22 07/23/22 Catherine Cm MD [address] [place] [address] [place] 9[address]85 Cardiovascular Disease 07/21/22 Valery Veronica, PA-C [address] [place] [address] 958715 Physician Office Administrative Assistant Dermatology 07/21/22 Catherine Cm MD [address] [place] [address] [place] [id number] Assigned Heart and Vascular Provider 07/24/22 11/05/22 Johnny Murillo MD [address] [place] [address] 783134 Assigned Musculoskeletal Provider 08/14/22 10/08/22 Brea Quinn APRN TRAY LINE SUPERVISOR [address] [place] [address] 734335 Nurse Practitioner Dermatology 09/21/22 Brea Quinn APRN TRAY LINE SUPERVISOR [address] [place] [address] [place] [id number] Assigned Surgical Provider 10/09/22 [place] [address] [facility] [place], [place] 6[address] Assigned Musculoskeletal Provider 10/09/22 Livan Sharif MD [address], [facility] [address] [place] [address] Assigned Heart and Vascular Provider 11/06/22 11/12/22 Catherine Cm MD [address] [facility] [address] [place] [address] Assigned Heart and Vascular Provider 11/13/22 05/27/23 Sydnie Martinez, RN Personal Advocate & Liaison (PAL) Family Medicine 03/28/23 07/31/23 Alfonso Renteria MD 5775 [facility] 200 [place] [address] Assigned Neuroscience Provider 04/02/23 Cheng Todd PA-C [address] [place], [place] [phone] Assigned PCP 04/30/23 07/15/23 Radha Lomeli, ARLENE TRAY LINE SUPERVISOR [address] [place], [place] 9[address] Assigned Heart and Vascular Provider 05/28/23 Jelena David OD [address] [place] [address] Ophthalmology 06/15/23 Pao Joseph, VJ Personal Advocate & Liaison (PAL) Nurse 08/01/23 Esha Grimm PAUcheC [address] [place] [phone] Assigned PCP 07/16/23 Valery Veronica PA-C 9 [place] [address] Physician Office Administrative Assistant Dermatology 09/19/23 Rey Tay MD [address] [place] [address] [id number] MD Gastroenterology 09/20/23 Rocky Zepeda DO [address] [place] [address] Physician Gastroenterology 09/20/23 Philip Dumont MD [address] [place] [address] [phone] Physician Ophthalmology 09/22/23 documented as of this encounter
--- OUTSIDE RECORDS SUMMARY | 2023-10-15 21:56 | XMS_ITS | Encounter Summary ---
Author Name Unknown Organization [facility] Address [address] [place] [address] Care Team Providers Care Combo Welder Name Role Phone Lita Oseguera Unavailable Unavailable Marija Edgar APRN CHEMISTRY LECTURER Primary Care Provider U mandaailMarija Callaway APRN CHEMISTRY LECTURER Unavailable Unavail able Mynor Broussard MD Unavailable [phone] Keisha Dotson MD Unavailable Galo Burrell MD Unavailable Unavailable Diana Desir [facility] Unavailable [phone] Rain Galaviz PA-C Unavailable Summer Lara MD Unavailable [phone] Tavia Wyatt MD Unavailable Unavailable Johnny Murillo MD Unavailable Erica Farrell APRN CHEMISTRY LECTURER Unavailable Teresita Bean [facility] Unavailable Tavia Wyatt MD Unavailable Unavailable Diana Desir [facility] Unavailable [phone] Rich Barrett MD Unavailable Neil Kent MD Unavailable Roney Story DPM Unavailable [phone] StoErica pereira APRN CHEMISTRY LECTURER Unavailable + Diana Desir [facility] Unavailable Jelena David OD Unavailable Galo Burrell MD Unavailable Unavailable Livan Sharif MD Unavailable Livan Sharif MD Unavailable IsCatherine hobbs MD Unavailable + Valery Veronica PA-C Unavailable [phone] Catherine Cm MD Unavailable + Johnny Murillo MD Unavailable [phone] Brea Quinn GRINDER BRAKE LINING CHEMISTRY LECTURER Unavailable [phone] Brea Quinn GRINDER BRAKE LINING CHEMISTRY LECTURER Unavailable [phone] Jose Francisco Johnson MD Unavailable Livan Sharif MD Unavailable + IsCatherine hobbs MD Unavailable + Sydnie Martinez RN Unavailable Unavailable Alfonso Renteria MD Unavailable Esha Grimm PA-C Primary Care Provider Cheng Todd PA-C Unavailable Radha Lomeli GRINDER BRAKE LINING CHEMISTRY LECTURER Unavailable [phone] Jelena David OD Unavailable [phone] Pao Joseph RN Unavailable Unavailable Esha Grimm-C Unavailable [phone] Valery Veronica PA-C Unavailable [phone] Rey Tay MD Unavailable Rocky Zepeda DO Unavailable Philip Dumont MD Unavailable [phone] Encounter Details Date Type Department Care Team (Late st Contact Info) Description 09/24/2021 MyC Medical Advice [facility] [place] [address] [facility] [address] [place] [address] Teresita Bean, [facility] [address] [employer] [place] [id number] Social History Tobacco Use Types Packs/Day Years [...] How often do you attend yarsani or hinduism serv ices? Never 09/22/2021 Do you belong [...] Answer Date Recorded PHQ-2 Score 2 09/22/2021 [facility] - Occupational Stress [...] or slept in a prison (including now)? No 09/22/2021 [place] Depression Scale Answer Date Recorded [place] Depression Score 5 01/14/2021 Last EPDS Self [...] or suspected to have Coronavirus / COVID-19? No / Unsure 09/22/2021 2:25 PM CDT documented as of this encounter Plan of Treatment Upcoming Encounters Date Type Department Care Team (Late st Contact Info) Description 10/25/2023 11:30 AM CDT Virtual Visit [facility] [address]th [place] [phone] [address] [place], RD [address] [place] [address] 11/03/2023 8:00 AM CDT Office Visit [facility] [address] [place] [phone] Valery Veronica PA-C [address] [place] [address] 11/29/2023 8:00 AM CDT Office Visit [facility] [address] [place] [address] Esha Grimm PA-C [address] [place] [address] 01/02/2024 8:00 AM CDT Office Visit [facility] [address] [place] [phone] Lauren Claudio PA-C [address] [place], [place] [phone] Kelli Perez MD [address] [place], [place] 276274 documented as of this encounter Visit Diagnoses Not on filedocumented in this encounter Additional Health Concerns Infection Onset Date Last Indicated Resolved Time Rule Out COVID-19 12/18/2021 12/18/2021 12/19/2021 11:34 AM CDT Rule Out COVID-19 02/24/2022 02/24/2022 02/25/2022 1:08 PM CDT Rule Out COVID-19 04/26/2022 04/26/2022 04/26/2022 6:47 AM CDT Rule Out COVID-19 05/17/2022 05/17/2022 05/17/2022 10:20 PM MANAGER OF PURCHASING Rule Out COVID-19 06/09/2022 06/09/2022 06/09/2022 9:35 AM MANAGER OF PURCHASING COVID-19 06/09/2022 06/09/2022 06/30/2022 11:4 1 PM MANAGER OF PURCHASING Rule Out COVID-19 11/10/2022 11/10/2022 11/11/2022 12:17 PM CDT Rule Out COVID-19 03/07/2023 03/07/2023 03/07/2023 1:20 PM CDT Assessment Noted Time PHQ-9 Depression Total Score: 2 04/02/20 21 10:19 AM CDT documented as of this encounter Care Teams Combo Welder Relationship Specialty Start Date End Date Marija Edgar APRN CNP PCP - General Nurse Practitioner 04/30/20 04/14/23 Esha Grimm PA-C [address] [place] [phone] PCP - General Family Medicine 05/04/23 Lita Oseguera Personal Advocate & Liaison (PAL) 02/28/20 03/27/23 Marija Edgar APRN CHEMISTRY LECTURER Assigned PCP 06/08/20 04/29/23 Mynor Broussard MD 6363 [facility] 500 [place] [address] Assigned Surgical Provider 06/01/20 11/28/21 Keisha Dotson MD 909 [place], [place] 643005 Assigned Neuroscience Provider 06/04/20 04/01/23 Galo Burrell MD Assigned Heart and Vascular Provider 10/05/20 04/02/22 [facility] [address] [place] [address] Pharmacist Pharmacist 04/17/21 Rain Galaviz PA-C [address] [place] [address] [address] [place] [address] Physician Director Of Environmental Services Dermatology 04/28/21 Summer Lara MD 606 [facility] [place] [address] Assigned OBGYN Provider 05/31/21 2 Tavia Wyatt MD [address] [place] [address] Dermatology 07/14/21 Johnny Murillo MD [address] [facility] [address] [place] [address] Assigned Musculoskeletal Provider 2/20/22 9/7/22 Erica Farrell APRN CHEMISTRY LECTURER 6405 [facility] [address] [place] [address] Nurse Practitioner Cardiovascular Disease 09/09/21 Teresita Bean [facility] [address] [place] [phone] Pharmacist Pharmacist 09/24/21 09/29/21 Tavia Wyatt MD Assigned Surgical Provider 11/29/21 05/07/22 Diana Desir, [facility] 3033 [place] [address] Assigned MTM Pharmacist 01/02/22 Rich Barrett MD [address] 279[address] Physician Ophthalmology 01/21/22 Neil Kent MD 500 [place] [address] Dermatology 02/24/22 Roney Story DPM [address] [facility] [address] [place] [address] Assigned Musculoskeletal Provider 03/20/22 08/13/22 Erica Farrell APRN CHEMISTRY LECTURER 1700 [place] [address] Assigned Heart and Vascular Provider 04/03/22 04/16/22 Diana Desir, [facility] [address] [place] [address] Assigned MTM Pharmacist 04/07/22 Jelena David OD 3305 [facility] [place] [address] Assigned Surgical Provider 05/08/22 10/08/22 Galo Burrell MD Assigned Heart and Vascular Provider 04/17/22 06/11/22 Livan Sharif MD [address], [address] [address] [place], [place] [address] Cardiovascular Disease 05/14/22 Livan Sharif MD [address], [place] [address] [place] 8664[address] Assigned Heart and Vascular Provider 06/12/22 07/23/22 Catherine Cm MD [address] [facility] [address] [place] 674245 Cardiovascular Disease 07/21/22 Valery Veronica, PA-C 909 [place], [place] 0[address] Physician Director Of Environmental Services Dermatology 07/21/22 Catherine Cm MD [address] [address] [place] [address] Assigned Heart and Vascular Provider 07/24/22 11/05/22 Johnny Murillo MD [address] [place] [address] 866445 Assigned Musculoskeletal Provider 08/14/22 10/08/22 Brea Quinn APRN CHEMISTRY LECTURER 500 [place] [address] Nurse Practitioner Dermatology 09/21/22 Brea Quinn APRN CHEMISTRY LECTURER 6401 [place] [address] Assigned Surgical Provider 10/09/22 [place] [address] [facility] 300 [place] [address] Assigned Musculoskeletal Provider 10/09/22 Livan Sharif MD [address] [facility] [address] [place] [address] Assigned Heart and Vascular Provider 11/06/22 11/12/22 Catherine Cm MD [address] [facility] [address] [place] [address] Assigned Heart and Vascular Provider 11/13/22 05/27/23 Sydnie Martinez RN Personal Advocate & Liaison (PAL) Family Medicine 03/28/23 07/31/23 Alfonso Renteria MD [address] [facility] 200 [place], [place] 573356 Assigned Neuroscience Provider 04/02/23 Cehng Todd PA-C [address] [place], [place] [phone] Assigned PCP 04/30/23 07/15/23 Radha Lomeli APRN CHEMISTRY LECTURER [address] [facility] [address] [place], [place] 590655 Assigned Heart and Vascular Provider 05/28/23 Jelena David OD [address] [facility] [place] [address] MD Ophthalmology 06/15/23 Pao Joseph, VJ Personal Advocate & Liaison (PAL) Nurse 08/01/23 Esha Grimm PAUcheC [address] [place] [phone] Assigned PCP 07/16/23 Valery Veronica PA-C [address] [place] [address] 095975 Physician Director Of Environmental Services Dermatology 09/19/23 Rey Tay MD [address] [place] [address] 395425 Gastroenterology 09/20/23 Rocky Zepeda DO [address] [place] [address] 953035 Physician Gastroenterology 09/20/23 Philip Dumont MD [address] [place] [address] 340255 Physician Ophthalmology 09/22/23 documented as of this encounter
--- OUTSIDE RECORDS SUMMARY | 2023-10-15 21:56 | XMS_ITS | Encounter Summary ---
Author Name Unknown Organization [place] Address [address] [place] [address] Care Team Providers Care Trip Follower Name Role Phone Lita Oseguera Unavailable Unavailable Marija Edgar APRN POT PUNCHER Primary Care Provider U mandaailMarija Callaway APRN POT PUNCHER Unavailable Unavail able Mynor Broussard MD Unavailable [phone] Keisha Dotson MD Unavailable Galo Burrell MD Unavailable Unavailable Diana Desir [facility] [place] [facility] Unavailable Rain Galaviz PA-C Unavailable Summer Lara MD Unavailable [phone] Tavia Wyatt MD Unavailable Unavailable Johnny Murillo MD Unavailable Erica Farrell APRN POT PUNCHER Unavailable Tavia Wyatt MD Unavailable Unavailable Diana Desir [facility] [place] [facility] Unavailable [phone] Rich Barrett MD Unavailable [phone] Neil Kent MD Unavailable Roney Story DPM Unavailable [phone] Erica Farrell APRN POT PUNCHER Unavailable Diana Desir [facility] [place] [facility] Unavailable [phone] Jelena David OD Unavailable Galo Burrell MD Unavailable Unavailable Livan Sharif MD Unavailable + Livan Sharif MD Unavailable + Catherine Cm MD Unavailable + Valery Veronica-C Unavailable [phone] Catherine Cm MD Unavailable + Johnny Murillo MD Unavailable [phone] Brea Quinn PINKING 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 POT PUNCHER Unavailable [phone] Brea Quinn PINKING 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 POT PUNCHER Unavailable [phone] Jose Francisco Johnson MD Unavailable + Livan Sharif MD Unavailable + IsCatherine hobbs MD Unavailable + Sydnie Martinez RN Unavailable Unavailable Alfonso Renteria MD Unavailable Esha Grimm-C Primary Care Provider Cheng Todd PA-C Unavailable Radha Lomeli PINKING 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 POT PUNCHER Unavailable [phone] Jelena David OD Unavailable [phone] Pao Joseph RN Unavailable Unavailable Esha Grimm PA-C Unavailable [phone] Valery Veronica PA-C Unavailable [phone] Rey Tay MD Unavailable Rocky Zepeda DO Unavailable Philip Dumont MD Unavailable [phone] Encounter Details Date Type Department Care Team (Late st Contact Info) Description 10/17/2021 MyC Medical Advice [address] [address] Diana Desir, [facility] [place] [facility] [address] [place] [address] Social History Tobacco Use Types Packs/Day Years [...] How often do you attend baptist or methodist serv ices? Never 09/22/2021 Do you belong to any clubs o r organizations such as baptist groups, unions, fraternal or athletic groups, [...] Answer Date Recorded PHQ-2 Score 2 09/22/2021 [facility] - Occupational Stress Questionnaire Answer Date [...] in a snf (including now)? No 09/22/2021 Pomeroy Depression Scale Answer Date Recorded Pomeroy Depression Score 5 01/14/2021 Last EPDS Self [...] have Coronavirus / COVID-19? No / Unsure 10/11/2021 4:03 PM CDT documented as of this encounter Plan of Treatment Upcoming Encounters Date Type Department Care Team (Late st Contact Info) Description 10/25/2023 11:30 AM CDT Virtual Visit [facility] [address] [place] [phone] Nelly [place]a, RD [address] [place] [address] 11/03/2023 8:00 AM CDT Office Visit [address] [phone] Valery Veronica PA-C [address] [place] [address] 11/29/2023 8:00 AM CDT Office Visit [address] [address] Esha Grimm PA-C [address] [place] [address] 01/02/2024 8:00 AM CDT Office Visit [facility] [place] [id number] [place] [phone] Lauren Claudio PA-C [address] [place] [address] Kelli Perez MD [address] [place] [address] documented as of this encounter Visit Diagnoses Not on filedocumented in this encounter Additional Health Concerns Infection Onset Date Last Indicated Resolved Time Rule Out COVID-19 12/18/2021 12/18/2021 12/19/2021 11:34 AM CDT Rule Out COVID-19 02/24/2022 02/24/2022 02/25/2022 1:08 PM CDT Rule Out COVID-19 04/26/2022 04/26/2022 04/26/2022 6:47 AM CDT Rule Out COVID-19 05/17/2022 05/17/2022 05/17/2022 10:20 PM BACK HOE 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 Rule Out COVID-19 06/09/2022 06/09/2022 06/09/2022 9:35 AM BACK HOE 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 COVID-19 06/09/2022 06/09/2022 06/30/2022 11:4 1 PM BACK HOE 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 Rule Out COVID-19 11/10/2022 11/10/2022 11/11/2022 12:17 PM CDT Rule Out COVID-19 03/07/2023 03/07/2023 03/07/2023 1:20 PM CDT Assessment Noted Time PHQ-9 Depression Total Score: 2 04/02/20 21 10:19 AM CDT documented as of this encounter Care Teams Trip Follower Relationship Specialty Start Date End Date Marija Edgar APRN POT PUNCHER PCP - General Nurse Practitioner 04/30/20 04/14/23 Esha Grimm PA-C [address] [place] [address] PCP - General Family Medicine 05/04/23 Lita Oseguera Personal Advocate & Liaison (PAL) 02/28/20 03/27/23 Marija Edgar APRN POT PUNCHER Assigned PCP 06/08/20 04/29/23 Mynor Broussard MD [address] [facility] [address] [address] Assigned Surgical Provider 06/01/20 11/28/21 Keisha Dotson MD 909 [place] [address] Assigned Neuroscience Provider 06/04/20 04/01/23 Galo Burrell MD Assigned Heart and Vascular Provider 10/05/20 04/02/22 Diana Desir, [facility] [address] [place] [address] Pharmacist Pharmacist 04/17/21 Rain Galaviz PA-C [address] [place] [address] [address] RAZO [address] [place] [address] Physician Evs Tech Dermatology 04/28/21 Summer Lara MD [address] [place] [address] Assigned OBGYN Provider 05/31/21 2 Tavia Wyatt MD 606 [address], [place] [address] Dermatology 07/14/21 Johnny Murillo MD [address] [place] [address] Assigned Musculoskeletal Provider 08/30/21 03/17/22 StoErica pereira APRN POT PUNCHER 6405 [facility] [address] [place] [address] Nurse Practitioner Cardiovascular Disease 09/09/21 Tavia Wyatt MD Assigned Surgical Provider 11/29/21 05/07/22 Diana Desir, [facility] [address] [place] [address] Assigned MTM Pharmacist 01/02/22 Rich Barrett MD [address] [address] Physician Ophthalmology 01/21/22 Neil Kent MD 500 [place] [address] Dermatology 02/24/22 Roney Story DPM [address] [facility] 300 [place] [address] Assigned Musculoskeletal Provider 03/20/22 08/13/22 Erica Farrell APRN POT PUNCHER 1700 [place] [address] Assigned Heart and Vascular Provider 04/03/22 04/16/22 Diana Desir, [facility] [address] [place] [address] Assigned MTM Pharmacist 04/07/22 Jelena David OD [address] [facility] [place] [place] [address] Assigned Surgical Provider 05/08/22 10/08/22 Galo Burrell MD Assigned Heart and Vascular Provider 04/17/22 06/11/22 Livan Sharif MD [address] [address] [place], [place] [address] Cardiovascular Disease 05/14/22 Livan Sharif MD [address] [place], [place] [address] Assigned Heart and Vascular Provider 06/12/22 07/23/22 Catherine Cm MD [address] [facility] [address] [place], [place] [address] Cardiovascular Disease 07/21/22 Valery Veronica, PAUcheC [address] [place] [address] Physician Evs Tech Dermatology 07/21/22 Catherine Cm MD [address] [place], [place] [address] Assigned Heart and Vascular Provider 07/24/22 11/05/22 Johnny Murillo MD [facility] [address] [address] Assigned Musculoskeletal Provider 08/14/22 10/08/22 Brea Quinn APRN POT PUNCHER [address] [place] [address] 254015 Nurse Practitioner Dermatology 09/21/22 Brea Quinn, PINKING 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 POT PUNCHER 6401 [facility] [place] [address] Assigned Surgical Provider 10/09/22 [place] [address] [facility] 300 [place] [address] Assigned Musculoskeletal Provider 10/09/22 Livan Sharif MD [address] [facility] [address] [place] [address] Assigned Heart and Vascular Provider 11/06/22 11/12/22 Catherine Cm MD [address] [place] [address] Assigned Heart and Vascular Provider 11/13/22 05/27/23 JuanSydnie malik, RN Personal Advocate & Liaison (PAL) Family Medicine 03/28/23 07/31/23 Alfonso Renteria MD 5775 [facility] 200 [place] [address] Assigned Neuroscience Provider 04/02/23 Cheng Todd PA-C [address] [place] [address] Assigned PCP 04/30/23 07/15/23 Radha Lomeli APRN POT PUNCHER [address] [place] [address] Assigned Heart and Vascular Provider 05/28/23 Jelena David SONJA [address] [facility] [place] [place] [address] Ophthalmology 06/15/23 Pao Joseph, RN Personal Advocate & Liaison (PAL) Nurse 08/01/23 Esha Grimm PAUcheC [address] [place] [phone] Assigned PCP 07/16/23 Valery Veronica PA-C 909 [place] [address] Physician Evs Tech Dermatology 09/19/23 Rey Tay MD [address] [place] [address] 584125 MD Gastroenterology 09/20/23 Rocky Zepeda DO [address] [place] [address] 109215 Physician Gastroenterology 09/20/23 Philip Dumont MD [address] [place] [address] 319635 Physician Ophthalmology 09/22/23 documented as of this encounter
--- OUTSIDE RECORDS SUMMARY | 2023-10-15 21:56 | XMS_ITS | Encounter Summary ---
Author Name Unknown Organization [place] Address [address] [place] [address] Care Team Providers Care Paintless Dent Repair Technician Name Role Phone Lita Oseguera Unavailable Unavailable Marija Edgar APRN SUPERVISOR SHAVING AND SPLITTING Primary Care Provider U mandaailMarija Callaway APRN SUPERVISOR SHAVING AND SPLITTING Unavailable Unavail able Mynor Bruossard MD Unavailable [phone] Keisha Dotson MD Unavailable Galo Burrell MD Unavailable Unavailable Diana Desir [facility] Unavailable Rain Galaviz PA-C Unavailable Summer Lara MD Unavailable [phone] Tavia Wyatt MD Unavailable Unavailable Johnny Murillo MD Unavailable Erica Farrell APRN SUPERVISOR SHAVING AND SPLITTING Unavailable Teresita Bean [facility] Unavailable Tavia Wyatt MD Unavailable Unavailable Diana Desir [facility] Unavailable [phone] Rich Barrett MD Unavailable Neil Kent MD Unavailable Roney Story DPM Unavailable [phone] StoErica pereira APRN SUPERVISOR SHAVING AND SPLITTING Unavailable + Diana Desir [facility] Unavailable Jelena David OD Unavailable [phone] Galo Burrell MD Unavailable Unavailable Livan Sharif MD Unavailable Livan Sharif MD Unavailable IsCatherine hobbs MD Unavailable + Valery Veronica PA-C Unavailable [phone] Catherine Cm MD Unavailable + Johnny Murillo MD Unavailable [phone] Brea Quinn RUBBISH COLLECTION SUPERVISOR SUPERVISOR SHAVING AND SPLITTING Unavailable [phone] Brea Quinn RUBBISH COLLECTION SUPERVISOR SUPERVISOR SHAVING AND SPLITTING Unavailable [phone] Jose Francisco Johnson MD Unavailable Liavn Sharif MD Unavailable + IsCatherine hobbs MD Unavailable + Sydnie Martinez RN Unavailable Unavailable Alfonso Renteria MD Unavailable Esha Grimm PA-C Primary Care Provider Cheng Todd PA-C Unavailable Radha Lomeli RUBBISH COLLECTION SUPERVISOR SUPERVISOR SHAVING AND SPLITTING Unavailable [phone] Jelena David OD Unavailable [phone] Pao Joseph RN Unavailable Unavailable Esha Grimm-C Unavailable [phone] Valery Veronica PA-C Unavailable [phone] Rey Tay MD Unavailable Rocky Zepeda DO Unavailable Philip Dumont MD Unavailable [phone] Encounter Details Date Type Department Care Team (Late st Contact Info) Description 09/02/2021 MyC Medical Advice [address] [address] Diana Desir, [facility] [address] [place] [address] Social History Tobacco Use Types Packs/Day Years [...] or ex-partner? No 08/11/2020 Social Connection and Isolat ion Panel [NHANES] Answer Date Recorded In a typical week, how many times do you talk on the phone with family, friends, or neighbors? Three times a week 08/07/2020 How often do you get togethe r with friends or relatives? Once a week 08/07/2020 How often do you attend chur or buddhist services? More than 4 times per year 08/07/2020 Do you belong to any clubs o r organizations such as nondenominational groups, unions, fraternal or athletic groups, or school groups? No 08/07/2020 How often do you attend meet ings of the clubs or organizations you belong to? Never 08/07/2020 Are you , , di vorced, , never , or living with a partner? Never 08/07/2020 AUDIT-C Answer Date Recorded Q1: How often do you have a drink containing alc ohol? Never 08/07/2020 Q2: How many drinks containi ng alcohol do you have on a typical day when you are drinking? Patient declined 08/07/2020 Q3: How often do you have si x or more drinks on one occasion? Never 08/07/2020 Overall Financial Resource Strain (CARDIA) Answe r Date Recorded How hard is it for you to pa y for the very basics like food, housing, medical care, and heating? Very hard 08/07/2020 PHQ-2 Answer Date Recorded PHQ-2 Score 0 04/02/2021 [facility] - Occupational Stress Questionnaire Answer Date Recorded Do you feel stress - tense, restless, nervous, or anxious, or unable to sleep at night because your mind is troubled all the time - these days? To some extent 08/07/2020 Exercise Vital Sign Answer Date Recorde d On average, how many days pe r week do you engage in moderate to strenuous exercise (like a brisk walk)? 1 day 08/07/2020 On average, how many minutes do you engage in exercise at this level? 30 min 08/07/2020 Hunger Vital Sign Answer Date Recorded Within the past 12 months, y ou worried that your food would run out before you got the money to buy more. Often true 08/07/19 21 Within the past 12 months, t he food you bought just didn't last and you didn't have money to get more. Often true 08/07/2020 PRAPARE - Transportation Answer Date Re corded In the past 12 months, has l ack of transportation kept you from medical appointments or from getting medications? No 07/12 In the past 12 months, has l ack of transportation kept you from meetings, work, or from getting things needed for daily living? No 08/07/2020 Housing Stability Vital Sign Answer Chip e Recorded In the last 12 months, was t here a time when you were not able to pay the mortgage or rent on time? No 08/11/2020 In the last 12 months, how many places have you lived? 1 08/11/2020 In the last 12 months, was t here a time when you did not have a steady place to sleep or slept in a snf (including now)? No 08/11/2020 Geneva Depression Scale Answer Date Recorded Geneva Depression Score 5 01/14/2021 Last EPDS Self [...] have Coronavirus / COVID-19? No / Unsure 09/02/2021 12:26 PM FAST FOOD SHIFT SUPERVISOR documented as of this encounter Plan of Treatment Upcoming Encounters Date Type Department Care Team (Late st Contact Info) Description 10/25/2023 11:30 AM CDT Virtual Visit [facility] Gastroenterology Clinic [address] [phone] Nelly Mesa, RD [address] [place] [address] 11/03/2023 8:00 AM CDT Office Visit [address] [phone] Valery Veronica PA-C [address] [place] [address] 11/29/2023 8:00 AM CDT Office Visit [address] [address] Esha Grimm PA-C [address] [place] [phone] 01/02/2024 8:00 AM CDT Office Visit [facility] [address] [place] [address] Lauren Claudio PA-C [address] [place], [place] [phone] Kelli Perez MD [address] [place], [place] [address]E [facility] 106 [place], [place] [address] documented as of this encounter Visit Diagnoses Not on filedocumented in this encounter Additional Health Concerns Infection Onset Date Last Indicated Resolved Time Rule Out COVID-19 12/18/2021 12/18/2021 12/19/2021 11:34 AM CDT Rule Out COVID-19 02/24/2022 02/24/2022 02/25/2022 1:08 PM CDT Rule Out COVID-19 04/26/2022 04/26/2022 04/26/2022 6:47 AM CDT Rule Out COVID-19 05/17/2022 05/17/2022 05/17/2022 10:20 PM FAST FOOD SHIFT SUPERVISOR Rule Out COVID-19 06/09/2022 06/09/2022 06/09/2022 9:35 AM FAST FOOD SHIFT SUPERVISOR COVID-19 06/09/2022 06/09/2022 06/30/2022 11:4 1 PM FAST FOOD SHIFT SUPERVISOR Rule Out COVID-19 11/10/2022 11/10/2022 11/11/2022 12:17 PM CDT Rule Out COVID-19 03/07/2023 03/07/2023 03/07/2023 1:20 PM CDT Assessment Noted Time PHQ-9 Depression Total Score: 2 04/02/20 21 10:19 AM CDT documented as of this encounter Care Teams Paintless Dent Repair Technician Relationship Specialty Start Date End Date Marija Edgar APRN SUPERVISOR SHAVING AND SPLITTING PCP - General Nurse Practitioner 04/30/20 04/14/23 Esha Grimm PA-C [address] [place] [phone] PCP - General Family Medicine 05/04/23 Lita Oseguera Personal Advocate & Liaison (PAL) 02/28/20 03/27/23 Marija Edgar APRN SUPERVISOR SHAVING AND SPLITTING Assigned PCP 06/08/20 04/29/23 Mynor Broussard MD 6363 [facility] 500 [place] [address] Assigned Surgical Provider 06/01/20 11/28/21 Keisha Dotson MD 909 [place] [address] Assigned Neuroscience Provider 06/04/20 04/01/23 Galo Burrell MD Assigned Heart and Vascular Provider 10/05/20 04/02/22 [facility] 3033 [place] [address] Pharmacist Pharmacist 04/17/21 Rain Galaviz PA-C [address] [facility] [address] [place] [address] Physician E Tailer Dermatology 04/28/21 Summer Lara MD [address] [place] [address] Assigned OBGYN Provider 05/31/21 2 Tavia Wyatt MD [address] [place] [address] Dermatology 07/14/21 Johnny Murillo MD [address] [facility] [address] [place] [address] Assigned Musculoskeletal Provider 08/30/21 03/17/22 Erica Farrell APRN SUPERVISOR SHAVING AND SPLITTING 6405 [facility] [address] [place] [address] Nurse Practitioner Cardiovascular Disease 09/09/21 Teresita Bean, [facility] [address] [place], [place] [phone] Pharmacist Pharmacist 09/24/21 09/29/21 Tavia Wyatt MD Assigned Surgical Provider 11/29/21 05/07/22 Diana Desir, [facility] [address] [place] [address] Assigned MTM Pharmacist 01/02/22 Rich Barrett MD [address] 125595 Physician Ophthalmology 01/21/22 Neil Kent MD 500 [place], [place] [address] Dermatology 02/24/22 Roney Story DPM [address] [facility] [address] [place] [address] Assigned Musculoskeletal Provider 03/20/22 08/13/22 Erica Farrell APRN SUPERVISOR SHAVING AND SPLITTING 1700 [place] [address] Assigned Heart and Vascular Provider 04/03/22 04/16/22 Diana Desir, [facility] [address] [facility] [place] [place] [address] Assigned MTM Pharmacist 04/07/22 Frankie Jelenamao Garcia OD [address] [facility] [place] [address] Assigned Surgical Provider 05/08/22 10/08/22 Galo Burrell MD Assigned Heart and Vascular Provider 04/17/22 06/11/22 Livan Sharif MD [address] [place] [address] Cardiovascular Disease 05/14/22 Livan Sharif MD [address] [place] [address] Assigned Heart and Vascular Provider 06/12/22 07/23/22 Catherine Cm MD [address] [place] [address] Cardiovascular Disease 07/21/22 Valery Veronica PAUhceC 909 [place], [place] [address] Physician E Tailer Dermatology 07/21/22 Catherine Cm MD [address] [place] [address] Assigned Heart and Vascular Provider 07/24/22 11/05/22 Johnny Murillo MD [facility] [address] [place] [address] Assigned Musculoskeletal Provider 08/14/22 10/08/22 Brea Quinn APRN SUPERVISOR SHAVING AND SPLITTING 500 [place] [address] Nurse Practitioner Dermatology 09/21/22 Brea Quinn APRN SUPERVISOR SHAVING AND SPLITTING 6401 [place] [address] Assigned Surgical Provider 10/09/22 [place] [address] [facility] 300 [place] [address] Assigned Musculoskeletal Provider 10/09/22 Livan Sharif MD [address] [facility] [address] [place] [address] Assigned Heart and Vascular Provider 11/06/22 11/12/22 Catherine Cm MD [address] [facility] [address] [place], [place] [address] Assigned Heart and Vascular Provider 11/13/22 05/27/23 Sydnie Martinez RN Personal Advocate & Liaison (PAL) Family Medicine 03/28/23 07/31/23 Alfonso Renteria MD 5775 [facility] 200 [place], [place] [address] Assigned Neuroscience Provider 04/02/23 Cheng Todd PA-C [address] [place] [address] Assigned PCP 04/30/23 07/15/23 Radha Lomeli APRN SUPERVISOR SHAVING AND SPLITTING [address] [place] [address] Assigned Heart and Vascular Provider 05/28/23 Jelena David OD [address] [facility] [place] [address] MD Ophthalmology 06/15/23 Pao Joseph, RN Personal Advocate & Liaison (PAL) Nurse 08/01/23 Esha Grimm PA-C [address] [place] [address] Assigned PCP 07/16/23 Valery Veronica PA-C [address] [place] [address] Physician E Tailer Dermatology 09/19/23 Rey Tay MD [address] [place] [address] MD Gastroenterology 09/20/23 Rocky Zepeda DO [address] [place] [address] 791615 Physician Gastroenterology 09/20/23 Philip Dumont MD [address] [place] [address] 356005 Physician Ophthalmology 09/22/23 documented as of this encounter
--- OUTSIDE RECORDS SUMMARY | 2023-10-15 21:56 | XMS_ITS | Encounter Summary ---
Author Name Unknown Organization [facility] Address [address] [place] [address] Care Team Providers Care Life Insurance Actuary Name Role Phone Lita Oseguera Unavailable Unavailable Marija Edgar APRN METAL BUGGY OPERATOR Primary Care Provider U mandaailMarija Callaway APRN METAL BUGGY OPERATOR Unavailable Unavail able Mynor Broussard MD Unavailable [phone] Keisha Dotson MD Unavailable Galo Burrell MD Unavailable Unavailable Diana Desir [facility] Unavailable [phone] Rain Galaviz PA-C Unavailable Summer Lara MD Unavailable [phone] Tavia Wyatt MD Unavailable Unavailable Johnny Murillo MD Unavailable Erica Farrell APRN METAL BUGGY OPERATOR Unavailable Teresita Bean [facility] Unavailable Tavia Wyatt MD Unavailable Unavailable Diana Desir [facility] Unavailable [phone] Rich Barrett MD Unavailable Neil Kent MD Unavailable Roney Story DPM Unavailable [phone] StoErica pereira APRN METAL BUGGY OPERATOR Unavailable + Diana Desir [facility] Unavailable Jelena David OD Unavailable [phone] Galo Burrell MD Unavailable Unavailable Livan Sharif MD Unavailable Livan Sharif MD Unavailable IsCatherine hobbs MD Unavailable + Valery Veronica PA-C Unavailable [phone] Catherine Cm MD Unavailable + Johnny Murillo MD Unavailable [phone] Brea Quinn MAJOR CASE DETECTIVE METAL BUGGY OPERATOR Unavailable [phone] Brea Quinn MAJOR CASE DETECTIVE METAL BUGGY OPERATOR Unavailable [phone] Jose Francisco Johnson MD Unavailable Livan Sharif MD Unavailable + IsCatherine hobbs MD Unavailable + Sydnie Martinez RN Unavailable Unavailable Alfonso Renteria MD Unavailable Esha Grimm PA-C Primary Care Provider Cheng Todd PA-C Unavailable Radha Lomeli MAJOR CASE DETECTIVE METAL BUGGY OPERATOR Unavailable [phone] Jelena David OD Unavailable [phone] Pao Joseph RN Unavailable Unavailable Esha Grimm-C Unavailable [phone] Valery Veronica PA-C Unavailable [phone] Rey Tay MD Unavailable Rocky Zepeda DO Unavailable Philip Dumont MD Unavailable [phone] Encounter Details Date Type Department Care Team (Late st Contact Info) Description 07/31/2021 Documentation Only INTERFACED REPORT Unknown, [...] How often do you attend chur or lutheran services? More than 4 times per year [...] Answer Date Recorded PHQ-2 Score 0 04/02/2021 [facility] - Occupational [...] slept in a correction (including now)? No 08/11/2020 Leona Depression Scale Answer Date Recorded Leona Depression Score 5 01/14/2021 Last EPDS Self [...] have Coronavirus / COVID-19? No / Unsure 08/03/2021 2:24 PM FIBERGLASS GRINDER documented as of this encounter Plan of Treatment Upcoming Encounters Date Type Department Care Team (Late st Contact Info) Description 10/25/2023 11:30 AM CDT Virtual Visit [facility] [address] [place] [phone] [address], [address] [place] [address] 11/03/2023 8:00 AM CDT Office Visit [facility] [address] [place] [phone] Valery Veronica PA-C [address] [place] [address] 11/29/2023 8:00 AM CDT Office Visit [facility] [address] [place] [phone] Esha Grimm PA-C [address] [place] [phone] 01/02/2024 8:00 AM CDT Office Visit [facility] [address] [place] [phone] Lauren Claudio PA-C [address] [place], [place] [phone] Kelli Perez MD [address] [address] documented as of this encounter Visit Diagnoses Not on filedocumented in this encounter Additional Health Concerns Infection Onset Date Last Indicated Resolved Time COVID-19 07/18/2021 07/18/2021 08/08/2021 11:3 9 PM FIBERGLASS GRINDER Rule Out COVID-19 12/18/2021 12/18/2021 12/19/2021 11:34 AM CDT Rule Out COVID-19 02/24/2022 02/24/2022 02/25/2022 1:08 PM CDT Rule Out COVID-19 04/26/2022 04/26/2022 04/26/2022 6:47 AM CDT Rule Out COVID-19 05/17/2022 05/17/2022 05/17/2022 10:20 PM FIBERGLASS GRINDER Rule Out COVID-19 06/09/2022 06/09/2022 06/09/2022 9:35 AM FIBERGLASS GRINDER COVID-19 06/09/2022 06/09/2022 06/30/2022 11:4 1 PM FIBERGLASS GRINDER Rule Out COVID-19 11/10/2022 11/10/2022 11/11/2022 12:17 PM CDT Rule Out COVID-19 03/07/2023 03/07/2023 03/07/2023 1:20 PM CDT Assessment Noted Time PHQ-9 Depression Total Score: 2 04/02/20 21 10:19 AM CDT documented as of this encounter Care Teams Life Insurance Actuary Relationship Specialty Start Date End Date Marija Edgar APRN METAL BUGGY OPERATOR PCP - General Nurse Practitioner 04/30/20 04/14/23 Esha Grimm, PAUcheC [address] [place] [phone] PCP - General Family Medicine 05/04/23 Lita Oseguera Personal Advocate & Liaison (PAL) 02/28/20 03/27/23 Marija Edgar APRN METAL BUGGY OPERATOR Assigned PCP 06/08/20 04/29/23 Mynor Broussard MD [address] [facility] [address] [place] [address] Assigned Surgical Provider 06/01/20 11/28/21 Keisha Dotson MD 909 [place] [address] Assigned Neuroscience Provider 06/04/20 04/01/23 Galo Burrell MD Assigned Heart and Vascular Provider 10/05/20 04/02/22 Diana Desir, [facility] [address] [place] [address] Pharmacist Pharmacist 04/17/21 Rain Galaviz PA-C [address] [facility] [place] [address] Physician Boiler Cleaner Dermatology 04/28/21 Summer Lara MD [address] [place] [address] Assigned OBGYN Provider 05/31/21 2 Tavia Wyatt MD [address] [place] [address] Dermatology 07/14/21 Johnny Murillo MD [address] [facility] [address] [place] [address] Assigned Musculoskeletal Provider 08/30/21 03/17/22 Erica Farrell APRN METAL BUGGY OPERATOR [address] [facility] [address] [place] [address] Nurse Practitioner Cardiovascular Disease 09/09/21 Teresita Bean, [facility] [address] [place] [address] Pharmacist Pharmacist 09/24/21 09/29/21 Tavia Wyatt MD Assigned Surgical Provider 11/29/21 05/07/22 [facility] 3033 [place] [address] Assigned MTM Pharmacist 01/02/22 Rich Barrett MD [address] [address] Physician Ophthalmology 01/21/22 Neil Kent MD 500 [place], [place] [address] Dermatology 02/24/22 Roney Story DPM [address] [facility] [address] [place], [place] [address] Assigned Musculoskeletal Provider 03/20/22 08/13/22 Erica Farrell APRN METAL BUGGY OPERATOR 1700 [place] [address] Assigned Heart and Vascular Provider 04/03/22 04/16/22 [facility] [address] [place] [address] Assigned MTM Pharmacist 04/07/22 Jelena David OD [address] [facility] [place] [address] Assigned Surgical Provider 05/08/22 10/08/22 Galo Burrell MD Assigned Heart and Vascular Provider 04/17/22 06/11/22 Livan Sharif MD [address], [address] [place] [address] Cardiovascular Disease 05/14/22 Livan Sharif MD [address], [address] [place] [address] Assigned Heart and Vascular Provider 06/12/22 07/23/22 Catherine Cm MD [address] [place] [address] Cardiovascular Disease 07/21/22 Valery Veronica, PAUcheC [address]09 [place] [address] Physician Boiler Cleaner Dermatology 07/21/22 Catherine Cm MD [address] [place] [address] Assigned Heart and Vascular Provider 07/24/22 11/05/22 Johnny Murillo MD [address] [place] [address] Assigned Musculoskeletal Provider 08/14/22 10/08/22 Brea Quinn APRN METAL BUGGY OPERATOR 500 [place] [address] Nurse Practitioner Dermatology 09/21/22 Brea Quinn APRN METAL BUGGY OPERATOR 64[address] [facility] [place] [address] Assigned Surgical Provider 10/09/22 [place] [address] [facility] 300 [place], [place] [address] Assigned Musculoskeletal Provider 10/09/22 Livan Sharif MD [address] [facility] [address] [place] [address] Assigned Heart and Vascular Provider 11/06/22 11/12/22 Catherine Cm MD [address] [facility] [address] [place] [address] Assigned Heart and Vascular Provider 11/13/22 05/27/23 Sydnie Martinez RN Personal Advocate & Liaison (PAL) Family Medicine 03/28/23 07/31/23 Alfonso Renteria MD 5775 [facility] 200 [place] [address] Assigned Neuroscience Provider 04/02/23 Cheng Todd PA-C [address] [place] [address] Assigned PCP 04/30/23 07/15/23 Radha Lomeli APRN METAL BUGGY OPERATOR [address] [facility] [address] [place] [address] Assigned Heart and Vascular Provider 05/28/23 Jelena David OD [address] [place] [address] MD Ophthalmology 06/15/23 Pao Joseph, VJ Personal Advocate & Liaison (PAL) Nurse 08/01/23 Esha Grimm PA-C [address] [place] [phone] Assigned PCP 07/16/23 Valery Veronica PAUcheC 9 [place], [place] [address] Physician Boiler Cleaner Dermatology 09/19/23 Rey Tay MD [address] [place] [address] Gastroenterology 09/20/23 Rocky Zepeda DO [address] [place] [address] Physician Gastroenterology 09/20/23 Philip Dumont MD [address] [place] [address] Physician Ophthalmology 09/22/23 documented as of this encounter
--- OUTSIDE RECORDS SUMMARY | 2023-10-15 21:56 | XMS_ITS | Encounter Summary ---
Author Name Unknown Organization [facility] Address [address] [place] [address] Care Team Providers Care Catering Barista Name Role Phone Lita Oseguera Unavailable Unavailable Marija Edgar APRN SOCIAL SCIENCES RESEARCH SCIENTIST Primary Care Provider U mandaailMarija Callaway APRN SOCIAL SCIENCES RESEARCH SCIENTIST Unavailable Unavail able Mynor Broussard MD Unavailable [phone] Keisha Dotson MD Unavailable Galo Burrell MD Unavailable Unavailable Diana Desir [facility] Unavailable Rain Galaviz PA-C Unavailable [phone] Summer Lara MD Unavailable [phone] Tavia Wyatt MD Unavailable Unavailable Johnny Murillo MD Unavailable [phone] Erica Farrell APRN SOCIAL SCIENCES RESEARCH SCIENTIST Unavailable Tavia Wyatt MD Unavailable Unavailable Diana Desir [facility] Unavailable [phone] Rich Barrett MD Unavailable [phone] Neil Kent MD Unavailable Roney Story DPM Unavailable [phone] Erica Farrell APRN SOCIAL SCIENCES RESEARCH SCIENTIST Unavailable Diana Desir [facility] Unavailable [phone] Jelena David OD Unavailable Galo Burrell MD Unavailable Unavailable Livan Sharif MD Unavailable + Livan Sharif MD Unavailable + Catherine Cm MD Unavailable + Valery Veronica-C Unavailable [phone] Catherine Cm MD Unavailable + Johnny Murillo MD Unavailable [phone] Brea Quinn LITIGATION ASSOCIATE SOCIAL SCIENCES RESEARCH SCIENTIST Unavailable [phone] Brea Quinn LITIGATION ASSOCIATE SOCIAL SCIENCES RESEARCH SCIENTIST Unavailable [phone] Jose Francisco Johnson MD Unavailable + Livan Sharif MD Unavailable + IsCatherine hobbs MD Unavailable + Sydnie Martinez RN Unavailable Unavailable Alfonso Renteria MD Unavailable Esha Grimm-C Primary Care Provider Cheng Todd PA-C Unavailable Radha Lomeli LITIGATION ASSOCIATE SOCIAL SCIENCES RESEARCH SCIENTIST Unavailable [phone] Jelena David OD Unavailable [phone] Pao Joseph RN Unavailable Unavailable Esha Grimm PA-C Unavailable [phone] Valery Veronica PA-C Unavailable [phone] Rey Tay MD Unavailable Rocky Zepeda DO Unavailable Philip Dumont MD Unavailable [phone] Encounter Details Date Type Department Care Team (Late st Contact Info) Description 11/04/2021 MyC Medical Advice [address] [phone] Diana Desir, [facility] [address] [place] [address] Social History Tobacco Use Types Packs/Day Years [...] How often do you attend methodist or pentecostalism serv ices? Never 09/22/2021 Do you belong to any clubs o r organizations such as methodist groups, unions, fraternal or athletic groups, [...] Answer Date Recorded PHQ-2 Score 2 09/22/2021 [facility] - [facility]ational Stress Questionnaire Answer Date [...] in a assisted (including now)? No 09/22/2021 Elburn Depression Scale Answer Date Recorded Elburn Depression Score 5 01/14/2021 Last EPDS Self [...] suspected to have Coronavirus/COVID-19? No / Unsure 10/30/2021 10:32 AM CDT documented as of this encounter Plan of Treatment Upcoming Encounters Date Type Department Care Team (Late st Contact Info) Description 10/25/2023 11:30 AM CDT Virtual Visit [facility] G[facility]ology Clinic [address] [place] [address] Nelly Mesa, [address] [place] [address] 11/03/2023 8:00 AM CDT Office Visit [address] [phone] Valery Veronica PA-C [address] [place] [address] 11/29/2023 8:00 AM CDT Office Visit [facility] [address] [place] [phone] Esha Grimm PA-C [address] [place] [address] 01/02/2024 8:00 AM CDT Office Visit [facility] [address] [place] [phone] Lauren Claudio PA-C [address] [place] [address] Kelli Perez MD [address] [place] [address] documented as of this encounter Visit Diagnoses Not on filedocumented in this encounter Additional Health Concerns Infection Onset Date Last Indicated Resolved Time Rule Out COVID-19 12/18/2021 12/18/2021 12/19/2021 11:34 AM CDT Rule Out COVID-19 02/24/2022 02/24/2022 02/25/2022 1:08 PM CDT Rule Out COVID-19 04/26/2022 04/26/2022 04/26/2022 6:47 AM CDT Rule Out COVID-19 05/17/2022 05/17/2022 05/17/2022 10:20 PM FLIGHT ENGINEER HELICOPTER Rule Out COVID-19 06/09/2022 06/09/2022 06/09/2022 9:35 AM FLIGHT ENGINEER HELICOPTER COVID-19 06/09/2022 06/09/2022 06/30/2022 11:4 1 PM FLIGHT ENGINEER HELICOPTER Rule Out COVID-19 11/10/2022 11/10/2022 11/11/2022 12:17 PM CDT Rule Out COVID-19 03/07/2023 03/07/2023 03/07/2023 1:20 PM CDT Assessment Noted Time PHQ-9 Depression Total Score: 2 04/02/20 21 10:19 AM CDT documented as of this encounter Care Teams Catering Barista Relationship Specialty Start Date End Date Marija Edgar APRN SOCIAL SCIENCES RESEARCH SCIENTIST PCP - General Nurse Practitioner 04/30/20 04/14/23 Esha Grimm PA-C [address] [place] [address] PCP - General Family Medicine 05/04/23 Lita Oseguera Personal Advocate & Liaison (PAL) 02/28/20 03/27/23 Marija Edgar APRN SOCIAL SCIENCES RESEARCH SCIENTIST Assigned PCP 06/08/20 04/29/23 Mynor Broussard MD 6363 [facility] 500 [place] [address] Assigned Surgical Provider 06/01/20 11/28/21 Keisha Dotson MD 909 [place] [address] Assigned Neuroscience Provider 06/04/20 04/01/23 Galo Burrell MD Assigned Heart and Vascular Provider 10/05/20 04/02/22 [facility] [address] [place] [address] Pharmacist Pharmacist 04/17/21 Rain Galaviz PA-C [address] [place] [address] [address] [place] [address] Physician Slurry Tank Tender Dermatology 04/28/21 Summer Lara MD [address] [place] [address] Assigned OBGYN Provider 05/31/21 2 Tavia Wyatt MD [address] [facility] [place] [address] Dermatology 07/14/21 Johnny Murillo MD [address] [facility] [address] [place] [address] Assigned Musculoskeletal Provider 08/30/21 03/17/22 Erica Farrell APRN SOCIAL SCIENCES RESEARCH SCIENTIST 6405 [facility] [address] [place] [address] Nurse Practitioner Cardiovascular Disease 09/09/21 Tavia Wyatt MD Assigned Surgical Provider 11/29/21 05/07/22 Diana Desir, [facility] [address] [place] [address] Assigned MTM Pharmacist 01/02/22 Rich Barrett MD [address] 5375[address] Physician Ophthalmology 01/21/22 Neil Kent MD 500 [place], [place] [address] Dermatology 02/24/22 [place] [address] [facility] 300 [place] [address] Assigned Musculoskeletal Provider 03/20/22 08/13/22 Erica Farrell APRN SOCIAL SCIENCES RESEARCH SCIENTIST 1700 [place] [address] Assigned Heart and Vascular Provider 04/03/22 04/16/22 Diana Desir, [facility] [address] [place] [address] Assigned MTM Pharmacist 04/07/22 Jelena David OD [address] [facility] [place] [address] Assigned Surgical Provider 05/08/22 10/08/22 Galo Burrell MD Assigned Heart and Vascular Provider 04/17/22 06/11/22 Livan Sharif MD [address], [facility] [address] [place] [address] Cardiovascular Disease 05/14/22 Livan Sharif MD [address], [facility] [address] [place] [address] Assigned Heart and Vascular Provider 06/12/22 07/23/22 Catherine Cm MD [address] [facility]00 [place] [address] Cardiovascular Disease 07/21/22 Valery Veronica, PAUcheC [address] [place] [address]68[address] Physician Slurry Tank Tender Dermatology 07/21/22 Catherine Cm MD [address] [facility] [address] [place] [address] Assigned Heart and Vascular Provider 07/24/22 11/05/22 Johnny Murillo MD [address] 6710[address] Assigned Musculoskeletal Provider 08/14/22 10/08/22 Brea Quinn APRN SOCIAL SCIENCES RESEARCH SCIENTIST [address] [place] [address] 001335 Nurse Practitioner Dermatology 09/21/22 Brea Quinn, LITIGATION ASSOCIATE SOCIAL SCIENCES RESEARCH SCIENTIST 6401 [facility] [place] 59[address] Assigned Surgical Provider 10/09/22 [place] [address] [facility] 300 [place] [address] Assigned Musculoskeletal Provider 10/09/22 Livan Sharif MD [address] [facility] [address] [place] [address] Assigned Heart and Vascular Provider 11/06/22 11/12/22 Catherine Cm MD [address] [place] [address] Assigned Heart and Vascular Provider 11/13/22 05/27/23 JuanSydnie malik RN Personal Advocate & Liaison (PAL) Family Medicine 03/28/23 07/31/23 Alfonso Renteria MD 5775 [facility] [place] [facility] 200 [place] [address] Assigned Neuroscience Provider 04/02/23 Cheng Todd PA-C [address] [place] [address] Assigned PCP 04/30/23 07/15/23 Radha Lomeli APRN SOCIAL SCIENCES RESEARCH SCIENTIST [address] [place] [address] Assigned Heart and Vascular Provider 05/28/23 Jelena David OD [address] [facility] [place] [address] Ophthalmology 06/15/23 Pao Joseph, RN Personal Advocate & Liaison (PAL) Nurse 08/01/23 Esha Grimm PA-C [address] [place] [phone] Assigned PCP 07/16/23 Valrey Veronica PA-C [address]09 [place] [address] Physician Slurry Tank Tender Dermatology 09/19/23 Rey Tay MD [address] [place] [address] [id number] Gastroenterology 09/20/23 Rocky Zepeda DO [address] [place] [address] Physician Gastroenterology 09/20/23 Philip Dumont MD [address] [place] [address] 019665 Physician Ophthalmology 09/22/23 documented as of this encounter
--- OUTSIDE RECORDS SUMMARY | 2023-10-15 21:56 | XMS_ITS | Encounter Summary ---
Author Name Unknown Organization [facility] Address [address] [place] [address] Care Team Providers Care Supervisor Baking Name Role Phone Lita Oseguera Unavailable Unavailable Marija Edgar APRN COMMUNITY ADVOCATE Primary Care Provider U mandaailaMrija Callaway APRN COMMUNITY ADVOCATE Unavailable Unavail able Mynor Broussard MD Unavailable [phone] Keisha Dotson MD Unavailable Galo Burrell MD Unavailable Unavailable Diana Desir [facility] Unavailable [phone] Rain Galaviz PA-C Unavailable Summer Lara MD Unavailable [phone] Tavia Wyatt MD Unavailable Unavailable Johnny Murillo MD Unavailable [phone] Erica Farrell APRN COMMUNITY ADVOCATE Unavailable Tavia Wyatt MD Unavailable Unavailable Diana Desir [facility] Unavailable [phone] Rich Barrett MD Unavailable [phone] Neil Kent MD Unavailable Roney Story DPM Unavailable [phone] Erica Farrell APRN COMMUNITY ADVOCATE Unavailable Diana Desir [facility] Unavailable [phone] Jelena David OD Unavailable Galo Burrell MD Unavailable Unavailable Livan Sharif MD Unavailable + Livan Sharif MD Unavailable + Catherine Cm MD Unavailable + Valery Veronica-C Unavailable [phone] Catherine Cm MD Unavailable + Johnny Murillo MD Unavailable [phone] Brea Quinn CLAM GRADER COMMUNITY ADVOCATE Unavailable [phone] Brea Quinn CLAM GRADER COMMUNITY ADVOCATE Unavailable [phone] Jose Francisco Johnson MD Unavailable + Livan Sharif MD Unavailable + IsCatherine hobbs MD Unavailable + Sydnie Martinez RN Unavailable Unavailable Alfonso Renteria MD Unavailable Esha Grimm-C Primary Care Provider Cheng Todd PA-C Unavailable Radha Lomeli CLAM GRADER COMMUNITY ADVOCATE Unavailable [phone] Jelena David OD Unavailable Pao Joseph RN Unavailable Unavailable Esha Grimm-C Unavailable [phone] Valery Veronica PA-C Unavailable [phone] Rey Tay MD Unavailable Rocky Zepeda DO Unavailable Philip Dumont MD Unavailable [phone] Reason for Visit * Reason Onset Date Comments Refill Request 10/31/2021 sertraline Encounter Details Date Type Department Care Team (Late st Contact Info) Description 10/31/[address] [address] Marija Edgar APRN COMMUNITY ADVOCATE Refill Request (sertraline) Social History Tobacco Use Types Packs/Day Years [...] How often do you attend orthodoxy or mormonism serv ices? Never 09/22/2021 Do you belong [...] Answer Date Recorded PHQ-2 Score 2 09/22/2021 [facility] - Occupational Stress Questionnaire Answer [...] in a snf (including now)? No 09/22/2021 Cornwall Depression Scale Answer Date Recorded Cornwall Depression Score 5 01/14/2021 Last EPDS Self [...] Notes * Telephone Encounter - Diana Desir RPH - 11/02/2021 8:58 AM CDT Approved per [facility] CPA. Luis Alberto ValderramaD Medication Therapy Management Provider, [facility] Pager: [phone] * Telephone Encounter - Aleyda Scott RN - [...] daily. Pt has follow up tomorrow with [facility] pharmacist to continue to work on taper. Appointments in Next Year Nov 03, 2021 3:30 PM Pharmacist Visit with Diana Desir RPH [facility] ([facility] ) [phone] Informed patient that will route refill request to Diana Desir. Pt verbalized understanding and is in agreement of plan. Aleyda Alvarez RN * Telephone Encounter - Amalia Deluca - 10/31/2021 10:31 AM CDTSummary: MEDICATION REQUEST FROM PHARM Reason for Call: Other prescription Detailed comments: PHARM SAYS- PT IS TAPERING OFF OF SERTALINE BUT IS CURRENTLY OUT OF TABS AND LOOKS LIKE CLINIC CANCELLED REMAIN REFILLS YESTERDAY, CALLING TO REQUEST GET REST OF HER TAPER Phone Number Patient can be reached at: Other phone number: [phone] Best Time: ANYTIME Can we leave a detailed message on this number? YES Call taken on 10/31/2021 at 10:31 AM by Amalia Deluca documented in this encounter Plan of Treatment Upcoming Encounters Date Type Department Care Team (Late st Contact Info) Description 10/25/2023 11:30 AM CDT Virtual Visit [facility] [address] [place] [phone] [address], [address] [place] [address] 11/03/2023 8:00 AM CDT Office Visit [facility] [address] [place] [phone] Valery Veronica PA-C [address] [place] [address] 11/29/2023 8:00 AM CDT Office Visit [facility] [address] [place] [phone] Esha Grimm PA-C [address] [place] [address] 01/02/2024 8:00 AM CDT Office Visit [facility] [address] [place] [phone] Lauren Claudio PA-C [address] [employer], [place] [phone] Kelli Perez MD 606 [address] [address] [address] documented as of this encounter Visit Diagnoses Diagnosis Moderate major depression (H)- Primary Major depressive disorder, single episode, moderate documented in this encounter Additional Health Concerns Infection Onset Date Last Indicated Resolved Time Rule Out COVID-19 12/18/2021 12/18/2021 12/19/2021 11:34 AM CDT Rule Out COVID-19 02/24/2022 02/24/2022 02/25/2022 1:08 PM CDT Rule Out COVID-19 04/26/2022 04/26/2022 04/26/2022 6:47 AM CDT Rule Out COVID-19 05/17/2022 05/17/2022 05/17/2022 10:20 PM GASTROENTEROLOGY TECHNICIAN Rule Out COVID-19 06/09/2022 06/09/2022 06/09/2022 9:35 AM GASTROENTEROLOGY TECHNICIAN COVID-19 06/09/2022 06/09/2022 06/30/2022 11:4 1 PM GASTROENTEROLOGY TECHNICIAN Rule Out COVID-19 11/10/2022 11/10/2022 11/11/2022 12:17 PM CDT Rule Out COVID-19 03/07/2023 03/07/2023 03/07/2023 1:20 PM CDT Assessment Noted Time PHQ-9 Depression Total Score: 2 04/02/20 21 10:19 AM CDT documented as of this encounter Care Teams Supervisor Baking Relationship Specialty Start Date End Date Marija Edgar APRN COMMUNITY ADVOCATE PCP - General Nurse Practitioner 04/30/20 04/14/23 Esha Grimm PA-C [address] [place] [phone] PCP - General Family Medicine 05/04/23 Lita Oseguera Personal Advocate & Liaison (PAL) 02/28/20 03/27/23 Marija Edgar APRN COMMUNITY ADVOCATE Assigned PCP 06/08/20 04/29/23 Mynor Broussard MD [facility] [facility] [address] [address] Assigned Surgical Provider 06/01/20 11/28/21 Keisha Dotson MD 909 [place] [address] Assigned Neuroscience Provider 06/04/20 04/01/23 Galo Burrell MD Assigned Heart and Vascular Provider 10/05/20 04/02/22 Diana Desir, [facility] [address] [place] [address] Pharmacist Pharmacist 04/17/21 Rain Galaviz PA-C [address] [place] [address] [address] [place] [address] Physician Theatre Program Director Dermatology 04/28/21 Summer Lara MD [address] [place] [address] Assigned OBGYN Provider 05/31/21 2 Tavia Wyatt MD [address] [place] [address] Dermatology 07/14/21 Johnny Murillo MD [facility] [address] [place] [address] Assigned Musculoskeletal Provider 08/30/21 03/17/22 StoesErica youssef APRN COMMUNITY ADVOCATE [address] [facility] [address] [place] [address] Nurse Practitioner Cardiovascular Disease 09/09/21 Tavia Wyatt MD Assigned Surgical Provider 11/29/21 05/07/22 Diana Desir, [facility] [address] [place] [address] Assigned MTM Pharmacist 01/02/22 Rich Barrett MD [address] 9[address] Physician Ophthalmology 01/21/22 Neil Kent MD 500 [place], [place] 424085 Dermatology 02/24/22 Roney Story DPM [address] [facility] 300 [place] [address] Assigned Musculoskeletal Provider 03/20/22 08/13/22 Erica Farrell APRN COMMUNITY ADVOCATE 1700 [place] [address] Assigned Heart and Vascular Provider 04/03/22 04/16/22 Diana Desir, [facility] [address] [place] [address] Assigned MTM Pharmacist 04/07/22 Jelena David OD [address] [place] [address] Assigned Surgical Provider 05/08/22 10/08/22 Galo Burrell MD Assigned Heart and Vascular Provider 04/17/22 06/11/22 Livan Sharif MD [address], [facility] [address] [place] [address] Cardiovascular Disease 05/14/22 Livan Sharif MD [address], [address] [address] [place], [place] 8227[address] Assigned Heart and Vascular Provider 06/12/22 07/23/22 Catherine Cm MD [address] [facility] [address] [place], [place] 9899[address] Cardiovascular Disease 07/21/22 Valery Veronica, [facility] [address] [place] [address] Physician Theatre Program Director Dermatology 07/21/22 Catherine Cm MD [address] [place], [place] 114[address] Assigned Heart and Vascular Provider 07/24/22 11/05/22 Johnny Murillo MD [facility] [address] 905144 Assigned Musculoskeletal Provider 08/14/22 10/08/22 Brea Quinn APRN COMMUNITY ADVOCATE [address] [place] [address] 696815 Nurse Practitioner Dermatology 09/21/22 Brea Quinn, CLAM GRADER COMMUNITY ADVOCATE 6401 [facility] [place] [address] Assigned Surgical Provider 10/09/22 [place] [address] [facility] [address] [place] [address] Assigned Musculoskeletal Provider 10/09/22 Livan Sharif MD [address], [facility] [address] [place] [address] Assigned Heart and Vascular Provider 11/06/22 11/12/22 Catherine Cm MD [address] [place] [address] [place] [address] Assigned Heart and Vascular Provider 11/13/22 05/27/23 JuanSydnie malik, RN Personal Advocate & Liaison (PAL) Family Medicine 03/28/23 07/31/23 Alfonso Renteria MD 5775 [facility] 200 [place], [place] 005986 Assigned Neuroscience Provider 04/02/23 Cheng Todd PA-C [address] [place] [address] Assigned PCP 04/30/23 07/15/23 aRdha Lomeli APRN COMMUNITY ADVOCATE [address] [place] [address] Assigned Heart and Vascular Provider 05/28/23 Jelena David OD [address] [place] [address] Ophthalmology 06/15/23 Pao Joseph, RN Personal Advocate & Liaison (PAL) Nurse 08/01/23 Esha Grimm PA-C [address] [place] [phone] Assigned PCP 07/16/23 Valery Veronica PA-C 909 [place] [address] Physician Theatre Program Director Dermatology 09/19/23 Rey Tay MD [address] [place] [address] 981245 MD Gastroenterology 09/20/23 Rocky Zepeda DO [address] [place] [address] Physician Gastroenterology 09/20/23 Philip Dumont MD [address] [place] [address] 250345 Physician Ophthalmology 09/22/23 documented as of this encounter
--- OUTSIDE RECORDS SUMMARY | 2023-10-15 21:56 | XMS_ITS | Encounter Summary ---
Author Name Unknown Organization [facility] Address [address] [place] [address] Care Team Providers Care Doll Surgeon Name Role Phone Lita Oseguera Unavailable Unavailable Marija Edgar APRN SOCIAL SCIENCE INSTRUCTOR Primary Care Provider U mandaailMarija Callaway APRN SOCIAL SCIENCE INSTRUCTOR Unavailable Unavail able Mynor Broussard MD Unavailable [phone] Keisha Dotson MD Unavailable Galo Burrell MD Unavailable Unavailable Diana Desir [facility] Unavailable Rain Galaviz PA-C Unavailable Summer Lara MD Unavailable [phone] Tavia Wyatt MD Unavailable Unavailable Johnny Murillo MD Unavailable Erica Farrell APRN SOCIAL SCIENCE INSTRUCTOR Unavailable Teresita Bean [facility] Unavailable [phone] Tavia Wyatt MD Unavailable Unavailable Diana Desir [facility] Unavailable [phone] Rich Barrett MD Unavailable Neil Kent MD Unavailable Roney Story DPM Unavailable [phone] StoErica pereira APRN SOCIAL SCIENCE INSTRUCTOR Unavailable + Diana Desir [facility] Unavailable [phone] Jelena David OD Unavailable Galo Burrell MD Unavailable Unavailable Livan Sharif MD Unavailable Livan Sharif MD Unavailable IsCatherine hobbs MD Unavailable + Valery Veronica PA-C Unavailable +[phone] Catherine Cm MD Unavailable + Johnny Murillo MD Unavailable [phone] Brea Quinn FITNESS SALES CONSULTANT SOCIAL SCIENCE INSTRUCTOR Unavailable [phone] Brea Quinn FITNESS SALES CONSULTANT SOCIAL SCIENCE INSTRUCTOR Unavailable [phone] Jose Francisco Johnson MD Unavailable Livan Sharif MD Unavailable + IsCatherine hobbs MD Unavailable + Sydnie Martinez RN Unavailable Unavailable Alfonso Renteria MD Unavailable Esha Grimm PA-C Primary Care Provider Cheng Todd PA-C Unavailable Radha Lomeli FITNESS SALES CONSULTANT SOCIAL SCIENCE INSTRUCTOR Unavailable [phone] Jelena David OD Unavailable [phone] Pao Joseph RN Unavailable Unavailable Esha Grimm-C Unavailable [phone] Valery Veronica PA-C Unavailable [phone] Rey Tay MD Unavailable Rocky Zepeda DO Unavailable Philip Dumont MD Unavailable [phone] Encounter Details Date Type Department Care Team (Late st Contact Info) Description 09/02/2021 Documentation Only INTERFACED REPORT Unknown, [...] How often do you attend chur or episcopal services? More than 4 times per year 08/07/2020 Do you belong to any clubs o r organizations such as restorationism groups, unions, fraternal or athletic groups, [...] Answer Date Recorded PHQ-2 Score 0 04/02/2021 [facility] - [...] slept in a custodial (including now)? No 08/11/2020 Bethel Depression Scale Answer Date Recorded Bet[place] Depression Score 5 01/14/2021 Last EPDS Self [...] COVID-19? No / Unsure 09/02/2021 12:26 PM RECEPTIONIST documented as of this encounter Plan of Treatment Upcoming Encounters Date Type Department Care Team (Late st Contact Info) Description 10/25/2023 11:30 AM CDT Virtual Visit [facility] [address] [place] [phone] [address], [address] [place] [address] 11/03/2023 8:00 AM CDT Office Visit [facility] [address] [place] [phone] Valery Veronica PA-C [address] [place] [address] 11/29/2023 8:00 AM CDT Office Visit [facility] [address] [place] [phone] Esha Grimm PA-C [address] [place] [phone] 01/02/2024 8:00 AM CDT Office Visit [facility] [address] [place] [phone] Lauren Claudio PA-C [address] [place], [place] [phone] Kelli Perez MD [address] [address] documented as of this encounter Visit Diagnoses Not on filedocumented in this encounter Additional Health Concerns Infection Onset Date Last Indicated Resolved Time Rule Out COVID-19 12/18/2021 12/18/2021 12/19/2021 11:34 AM CDT Rule Out COVID-19 02/24/2022 02/24/2022 02/25/2022 1:08 PM CDT Rule Out COVID-19 04/26/2022 04/26/2022 04/26/2022 6:47 AM CDT Rule Out COVID-19 05/17/2022 05/17/2022 05/17/2022 10:20 PM RECEPTIONIST Rule Out COVID-19 06/09/2022 06/09/2022 06/09/2022 9:35 AM RECEPTIONIST COVID-19 06/09/2022 06/09/2022 06/30/2022 11:4 1 PM RECEPTIONIST Rule Out COVID-19 11/10/2022 11/10/2022 11/11/2022 12:17 PM CDT Rule Out COVID-19 03/07/2023 03/07/2023 03/07/2023 1:20 PM CDT Assessment Noted Time PHQ-9 Depression Total Score: 2 04/02/20 21 10:19 AM CDT documented as of this encounter Care Teams Doll Surgeon Relationship Specialty Start Date End Date Marija Edgar APRN SOCIAL SCIENCE INSTRUCTOR PCP - General Nurse Practitioner 04/30/20 04/14/23 Esha Grimm PA-C [address] [place] [phone] PCP - General Family Medicine 05/04/23 Lita Oseguera Personal Advocate & Liaison (PAL) 02/28/20 03/27/23 Marija Edgar APRN SOCIAL SCIENCE INSTRUCTOR Assigned PCP 06/08/20 04/29/23 Mynor Broussard MD 6363 [facility] [address] [place] [address] Assigned Surgical Provider 06/01/20 11/28/21 Keisha Dotson MD 909 [place] [address] Assigned Neuroscience Provider 06/04/20 04/01/23 Galo Burrell MD Assigned Heart and Vascular Provider 10/05/20 04/02/22 [facility] 3033 [place] [address] Pharmacist Pharmacist 04/17/21 Rain Galaviz PA-C [address] [place] [address] [address] [place] [address] Physician Furrier Shop Supervisor Dermatology 04/28/21 Summer Lara MD [address] [place] [address] Assigned OBGYN Provider 05/31/21 2 Tavia Wyatt MD [address] [place] [address] Dermatology 07/14/21 Johnny Murillo MD [address] [place] [address] Assigned Musculoskeletal Provider 08/30/21 03/17/22 Erica Farrell APRN SOCIAL SCIENCE INSTRUCTOR 6405 [facility] [address] [place] [address] Nurse Practitioner Cardiovascular Disease 09/09/21 Teresita Bean, [facility] [address] [place] [phone] Pharmacist Pharmacist 09/24/21 09/29/21 Tavia Wyatt MD Assigned Surgical Provider 11/29/21 05/07/22 Diana Desir, [facility] [address] [place] [address] Assigned MTM Pharmacist 01/02/22 Rich Barrett MD [address] 382965 Physician Ophthalmology 01/21/22 Neil Kent MD 500 [place], [place] [address]85 Dermatology 02/24/22 Roney Story DPM [address] [facility] [address] [place] [address] Assigned Musculoskeletal Provider 03/20/22 08/13/22 Erica Farrell APRN SOCIAL SCIENCE INSTRUCTOR 1700 [place] [address] Assigned Heart and Vascular Provider 04/03/22 04/16/22 Diana Desir, [facility] [address] [place] [address] Assigned MTM Pharmacist 04/07/[address] J[address] David [address] [facility] [place] [address] Assigned Surgical Provider 05/08/22 10/08/22 Galo Burrell MD Assigned Heart and Vascular Provider 04/17/22 06/11/22 Livan Sharif MD [address], [facility] [address] [place], [place] [address] Cardiovascular Disease 05/14/22 Livan Sharif MD [address], [facility] [address] [place] [address] Assigned Heart and Vascular Provider 06/12/22 07/23/22 Catherine Cm MD [address] [facility]00 [place] [address] Cardiovascular Disease 07/21/22 Valery Veronica, PA-C [address] [place] [address] Physician Furrier Shop Supervisor Dermatology 07/21/22 Catherine Cm MD [address] [facility] [place] [address] Assigned Heart and Vascular Provider 07/24/22 11/05/22 Johnny Murillo MD [address] [place] [address] Assigned Musculoskeletal Provider 08/14/22 10/08/22 Brea Quinn APRN SOCIAL SCIENCE INSTRUCTOR [address] [place] [address] Nurse Practitioner Dermatology 09/21/22 Brea Quinn APRN SOCIAL SCIENCE INSTRUCTOR 6401 [facility] [place] [address] Assigned Surgical Provider 10/09/22 [place] [address] [facility] 300 [place] [address] Assigned Musculoskeletal Provider 10/09/22 Livan Sharif MD [address] [facility] [address] [place] [address] Assigned Heart and Vascular Provider 11/06/22 11/12/22 Catherine Cm MD [address] [facility] [address] [place] [address] Assigned Heart and Vascular Provider 11/13/22 05/27/23 Sydnie Martinez RN Personal Advocate & Liaison (PAL) Family Medicine 03/28/23 07/31/23 Alfonso Renteria MD 5775 [facility] 200 [place] [address] Assigned Neuroscience Provider 04/02/23 Cheng Todd PA-C [address] [place] [address] Assigned PCP 04/30/23 07/15/23 Radha Lomeli APRN SOCIAL SCIENCE INSTRUCTOR [address] [place] [address] Assigned Heart and Vascular Provider 05/28/23 Jelena David OD [address] [facility] [place] [address] Ophthalmology 06/15/23 Pao Joseph, RN Personal Advocate & Liaison (PAL) Nurse 08/01/23 Esha Grimm PA-C [address] [place] [phone] Assigned PCP 07/16/23 Valery Veronica PA-C [address] [place] [address] Physician Furrier Shop Supervisor Dermatology 09/19/23 Rey Tay MD [address] [place] [address] MD Gastroenterology 09/20/23 Rocky Zepeda DO [address] [place] [address] 965895 Physician Gastroenterology 09/20/23 Philip Dumont MD [address] [place] [address] 432035 Physician Ophthalmology 09/22/23 documented as of this encounter
--- OUTSIDE RECORDS SUMMARY | 2023-10-15 21:56 | XMS_ITS | Encounter Summary ---
Author Name Unknown Organization [place] Address [address] [place] [address] Care Team Providers Care Painter Railroad Car Name Role Phone Lita Oseguera Unavailable Unavailable Marija Edgar APRN PRECAST MOLDER Primary Care Provider U mandaailMarija Callaway APRN PRECAST MOLDER Unavailable Unavail able Mynor Broussard MD Unavailable [phone] Keisha Dotson MD Unavailable Galo Burrell MD Unavailable Unavailable Diana Desir [facility] Unavailable Rain Galaviz PA-C Unavailable Summer Lara MD Unavailable [phone] Tavia Wyatt MD Unavailable Unavailable Johnny Murillo MD Unavailable Erica Farrell APRN PRECAST MOLDER Unavailable Tavia Wyatt MD Unavailable Unavailable Diana Desir [facility] Unavailable [phone] Rich Barrett MD Unavailable [phone] Neil Kent MD Unavailable Roney Story DPM Unavailable [phone] Erica Farrell APRN PRECAST MOLDER Unavailable Diana Desir [facility] Unavailable [phone] Jelena David OD Unavailable [phone] Galo Burrell MD Unavailable Unavailable Livan Sharif MD Unavailable + Livan Sharif MD Unavailable + Catherine Cm MD Unavailable + Valery Veronica-C Unavailable [phone] Catherine Cm MD Unavailable + Johnny Murillo MD Unavailable [phone] Brea Quinn HARDWOOD FLOOR INSTALLATION HELPER PRECAST MOLDER Unavailable [phone] Brea Quinn HARDWOOD FLOOR INSTALLATION HELPER PRECAST MOLDER Unavailable [phone] Jose Francisco Johnson MD Unavailable + Livan Sharif MD Unavailable + IsCatherine hobbs MD Unavailable + Sydnie Martinez RN Unavailable Unavailable Alfonso Renteria MD Unavailable Esha Grimm-C Primary Care Provider Cheng Todd PA-C Unavailable Radha Lomeli HARDWOOD FLOOR INSTALLATION HELPER PRECAST MOLDER Unavailable [phone] Jelena David OD Unavailable [phone] Pao Joseph RN Unavailable Unavailable Esha Grimm PA-C Unavailable [phone] Valery Veronica PA-C Unavailable [phone] Rey Tay MD Unavailable Rocky Zepeda DO Unavailable Philip Dumont MD Unavailable [phone] Encounter Details Date Type Department Care Team (Late st Contact Info) Description 10/28/2021 MyC Medical Advice [facility] Heart [facility] [address] [facility] [address] [place] [address] Erica Farrell APRN PRECAST MOLDER [address] [place] [address] Social History Tobacco Use Types Packs/Day Years [...] How often do you attend druze or oriental orthodox serv ices? Never 09/22/2021 Do you belong to any clubs o r organizations such as druze groups, unions, fraternal or athletic groups, [...] Answer Date Recorded PHQ-2 Score 2 09/22/2021 [facility] - Occupational Stress Questionnaire Answer [...] or slept in a alf (including now)? No 09/22/2021 Canadian Depression Scale Answer Date Recorded Canadian Depression Score 5 01/14/2021 Last EPDS Self [...] [facility] [address]th [place] [phone] Nelly Mesa, RD [address] [place] [address] 11/03/2023 8:00 AM CDT Office Visit [address] [phone] Valery Veronica PA-C [address] [place] [address] 11/29/2023 8:00 AM CDT Office Visit [facility] [id number] [place] [address] Esha Grimm PA-C [address] [place] [address] 01/02/2024 8:00 AM CDT Office Visit [facility] [address] [place] [phone] Lauren Claudio PA-C [address] [place], [place] [phone] Kelli Perez MD [address] [place] [address] documented as of this encounter Visit Diagnoses Not on filedocumented in this encounter Additional Health Concerns Infection Onset Date Last Indicated Resolved Time Rule Out COVID-19 12/18/2021 12/18/2021 12/19/2021 11:34 AM CDT Rule Out COVID-19 02/24/2022 02/24/2022 02/25/2022 1:08 PM CDT Rule Out COVID-19 04/26/2022 04/26/2022 04/26/2022 6:47 AM CDT Rule Out COVID-19 05/17/2022 05/17/2022 05/17/2022 10:20 PM LEAD SYSTEMS ENGINEER Rule Out COVID-19 06/09/2022 06/09/2022 06/09/2022 9:35 AM LEAD SYSTEMS ENGINEER COVID-19 06/09/2022 06/09/2022 06/30/2022 11:4 1 PM LEAD SYSTEMS ENGINEER Rule Out COVID-19 11/10/2022 11/10/2022 11/11/2022 12:17 PM CDT Rule Out COVID-19 03/07/2023 03/07/2023 03/07/2023 1:20 PM CDT Assessment Noted Time PHQ-9 Depression Total Score: 2 04/02/20 10:19 AM CDT documented as of this encounter Care Teams Painter Railroad Car Relationship Specialty Start Date End Date Marija Edgar APRN PRECAST MOLDER PCP - General Nurse Practitioner 04/30/20 04/14/23 Esha Grimm PA-C [address] [place] [phone] PCP - General Family Medicine 05/04/23 Lita Oseguera Personal Advocate & Liaison (PAL) 8/20/20 9/17/23 Marija Edgar APRN PRECAST MOLDER Assigned PCP 06/08/20 04/29/23 Mynor Broussard MD 6[address] [facility] 500 [place] [address] Assigned Surgical Provider 06/01/20 11/28/21 Keisha Dotson MD 909 [place] [address] Assigned Neuroscience Provider 06/04/20 04/01/23 Galo Burrell MD Assigned Heart and Vascular Provider 10/05/20 04/02/22 [facility] [address] [place] [address] Pharmacist Pharmacist 04/17/21 Rain Galaivz PA-C [address] [place] [address] [address] RAZO [address] [place] [address] Physician Spray Crew Dermatology 04/28/21 Summer Lara MD [address] [place] [address] Assigned OBGYN Provider 05/31/21 2 Tavia Wyatt MD [address] [place] [address] Dermatology 07/14/21 Johnny Murillo MD [address] [facility] [address] [place] [address] Assigned Musculoskeletal Provider 08/30/21 03/17/22 Erica Farrell APRN PRECAST MOLDER 6405 [facility] [address] [place] [address] Nurse Practitioner Cardiovascular Disease 09/09/21 Tavia Wyatt MD Assigned Surgical Provider 11/29/21 05/07/22 Diana Desir, [facility] [address] [place] [address] Assigned MTM Pharmacist 01/02/22 Rich Barrett MD [address] [place] [address] 177535 Physician Ophthalmology 01/21/22 Neil Kent MD 500 [place], [place] 17[address]25 Dermatology 02/24/22 Roney Story DPM [address] [facility] [address] [place] [address] Assigned Musculoskeletal Provider 03/20/22 08/13/22 Erica Farrell APRN PRECAST MOLDER 1700 [place] [address] Assigned Heart and Vascular Provider 04/03/22 04/16/22 Diana Desir, [facility] [address] [place] [address] Assigned MTM Pharmacist 04/07/22 Jelena David OD [address] [facility] [place] [address] Assigned Surgical Provider 05/08/22 10/08/22 Glao Burrell MD Assigned Heart and Vascular Provider 04/17/22 06/11/22 Livan Sharif MD [address], [facility] [address] [place], [place] 8[address] Cardiovascular Disease 05/14/22 Livan Sharif MD [address], [facility] [address] [place] 5[address]25 Assigned Heart and Vascular Provider 06/12/22 07/23/22 Catherine Cm MD [address] [facility]00 [place] 8[address] Cardiovascular Disease 07/21/22 Valery Veronica, PA-C [address] [place] [address] 841075 Physician Spray Crew Dermatology 07/21/22 Catherine Cm MD [address] [facility] [address] [place], [place] 269195 Assigned Heart and Vascular Provider 07/24/22 11/05/22 Johnny Murillo MD [facility] [address] 045604 Assigned Musculoskeletal Provider 08/14/22 10/08/22 Brea Quinn APRN PRECAST MOLDER [address] [place] [address] 779175 Nurse Practitioner Dermatology 09/21/22 Brea Quinn APRN PRECAST MOLDER 6401 [place] [address] Assigned Surgical Provider 10/09/22 [place] [address] 595[address] Assigned Musculoskeletal Provider 10/09/22 Livan Sharif MD [address], [facility] [address] [place] 405[address] Assigned Heart and Vascular Provider 11/06/22 11/12/22 Catherine Cm MD [address] [facility] [address] [place] [address] Assigned Heart and Vascular Provider 11/13/22 05/27/23 Sydnie Martinez RN Personal Advocate & Liaison (PAL) Family Medicine 03/28/23 07/31/23 Alfonso Renteria MD 5775 [facility] 200 [place] [address] Assigned Neuroscience Provider 04/02/23 Cheng Todd PA-C [address] [place] [address] Assigned PCP 04/30/23 07/15/23 Radha Lomeli APRN PRECAST MOLDER [address] [place] [address] Assigned Heart and Vascular Provider 05/28/23 Jelena David OD [address] [facility] [place] [address] Ophthalmology 06/15/23 Pao Joseph, RN Personal Advocate & Liaison (PAL) Nurse 08/01/23 Esha Grimm PA-C [address] [place] [phone] Assigned PCP 07/16/23 Valery Veronica PA-C 9 [place] [address] Physician Spray Crew Dermatology 09/19/23 Rey Tay MD [address] [place] [address] 696635 Gastroenterology 09/20/23 Rocky Zepeda DO [address] [place] [address] Physician Gastroenterology 09/20/23 Philip Dumont MD [address] [place] [address] 036585 Physician Ophthalmology 09/22/23 documented as of this encounter
--- OUTSIDE RECORDS SUMMARY | 2023-10-15 21:56 | XMS_ITS | Encounter Summary ---
Author Name Unknown Organization [place] Address [address] [place] [address] Care Team Providers Care Respiratory Technician Name Role Phone Lita Oseguera Unavailable Unavailable Marija Edgar APRN ASSOCIATE EMBALMER/FUNERAL DIRECTOR Primary Care Provider U mandaailMarija Callaway APRN ASSOCIATE EMBALMER/FUNERAL DIRECTOR Unavailable Unavail able Mynor Broussard MD Unavailable [phone] Keisha Dotson MD Unavailable Galo Burrell MD Unavailable Unavailable Diana Desir [facility] Unavailable Rain Galaviz PA-C Unavailable Summer Lara MD Unavailable [phone] Tavia Wyatt MD Unavailable Unavailable Johnny Murillo MD Unavailable [phone] Erica Farrell APRN ASSOCIATE EMBALMER/FUNERAL DIRECTOR Unavailable Teresita Bean [facility] Unavailable Tavia Wyatt MD Unavailable Unavailable Diana Desir [facility] Unavailable [phone] Rich Barrett MD Unavailable Neil Kent MD Unavailable Roney Story DPM Unavailable [phone] StoErica pereira APRN ASSOCIATE EMBALMER/FUNERAL DIRECTOR Unavailable + Diana Desir [facility] Unavailable Jelena David OD Unavailable Galo Burrell MD Unavailable Unavailable Livan Sharif MD Unavailable Livan Sharif MD Unavailable IsCatherine hobbs MD Unavailable + Valery Veronica PA-C Unavailable [phone] Catherine Cm MD Unavailable + Johnny Murillo MD Unavailable [phone] Brea Quinn DOOR PANELER ASSOCIATE EMBALMER/FUNERAL DIRECTOR Unavailable [phone] Brea Quinn DOOR PANELER ASSOCIATE EMBALMER/FUNERAL DIRECTOR Unavailable [phone] Jose Francisco Johnson MD Unavailable Livan Sharif MD Unavailable + IsCatherine hobbs MD Unavailable + Sydnie Martinez RN Unavailable Unavailable Alfonso Renteria MD Unavailable Esha Grimm PA-C Primary Care Provider Cheng Todd PA-C Unavailable Radha Lomeli DOOR PANELER ASSOCIATE EMBALMER/FUNERAL DIRECTOR Unavailable [phone] Jelena David OD Unavailable [phone] Pao Joseph RN Unavailable Unavailable Esha Grimm-C Unavailable [phone] Valery Veronica PA-C Unavailable +[phone] Rey Tay MD Unavailable Rocky Zepeda DO Unavailable Philip Dumont MD Unavailable [phone] Encounter Details Date Type Department Care Team (Late st Contact Info) Description 08/04/2021 [facility] Medical Advice [address] [address] Bob Diop Social History Tobacco Use Types Packs/Day Years [...] week 08/07/2020 How often do you attend [facility] or [facility] services? More than 4 times per year [...] Answer Date Recorded PHQ-2 Score 0 04/02/2021 [facility] - Occupational Stress Questionnaire Answer [...] slept in a senior living (including now)? No 08/11/2020 [place] Depression Scale Answer Date Recorded [place] Depression Score 5 01/14/2021 Last EPDS Self [...] COVID-19? No / Unsure 08/03/2021 2:24 PM [facility] documented as of this encounter Plan of Treatment Upcoming Encounters Date Type Department Care Team (Late st Contact Info) Description 10/25/2023 11:30 AM CDT Virtual Visit [facility] Gastroenterology Clinic [address]th [place] [address] Nelly Mesa, RD [address] [place] [address] 11/03/2023 8:00 AM CDT Office Visit [address] [phone] Valery Veronica PA-C [address] [place] [address] 11/29/2023 8:00 AM CDT Office Visit [facility] [address] [place] [address] Esha Grimm PA-C [address] [place] [address] 01/02/2024 8:00 AM CDT Office Visit [facility] Sleep [facility] [address] [place] [phone] Lauren Claudio PA-C [address] [place] [address] Kelli Perez MD [address] [place] [address] documented as of this encounter Visit Diagnoses Not on filedocumented in this encounter Additional Health Concerns Infection Onset Date Last Indicated Resolved Time COVID-19 07/18/2021 07/18/2021 08/08/2021 11:3 9 PM [facility] Rule Out COVID-19 12/18/2021 12/18/2021 12/19/2021 11:34 AM CDT Rule Out COVID-19 02/24/2022 02/24/2022 02/25/2022 1:08 PM CDT Rule Out COVID-19 04/26/2022 04/26/2022 04/26/2022 6:47 AM CDT Rule Out COVID-19 05/17/2022 05/17/2022 05/17/2022 10:20 PM [facility] Rule Out COVID-19 06/09/2022 06/09/2022 06/09/2022 9:35 AM [facility] COVID-19 06/09/2022 06/09/2022 06/30/2022 11:4 1 PM [facility] Rule Out COVID-19 11/10/2022 11/10/2022 11/11/2022 12:17 PM CDT Rule Out COVID-19 03/07/2023 03/07/2023 03/07/2023 1:20 PM CDT Assessment Noted Time PHQ-9 Depression Total Score: 2 04/02/20 21 10:19 AM CDT documented as of this encounter Care Teams Respiratory Technician Relationship Specialty Start Date End Date Marija Edgar APRN ASSOCIATE EMBALMER/FUNERAL DIRECTOR PCP - General Nurse Practitioner 04/30/20 04/14/23 Esha Grimm PA-C [address] [place] [phone] PCP - General Family Medicine 05/04/23 Lita Oseguera Personal Advocate & Liaison (PAL) 02/28/20 03/27/23 Marija Edgar APRN ASSOCIATE EMBALMER/FUNERAL DIRECTOR Assigned PCP 06/08/20 04/29/23 Mynor Broussard MD 6363 [facility] 500 [place] [address] Assigned Surgical Provider 06/01/20 11/28/21 Keisha Dotson MD 909 [place] [address] Assigned Neuroscience Provider 06/04/20 04/01/23 Galo Burrell MD Assigned Heart and Vascular Provider 10/05/20 04/02/22 [facility] [address] [place] [address] Pharmacist Pharmacist 04/17/21 Rain Galaviz PA-C [address] [facility] [address] [place] [address] Physician Senior Editor Dermatology 04/28/21 Summer Lara MD [address] [place] [address] Assigned OBGYN Provider 05/31/21 2 Tavia Wyatt MD 606 [facility] [address] Dermatology 07/14/21 Johnny Murillo MD [address] [facility] [address] [place] [address] Assigned Musculoskeletal Provider 08/30/21 03/17/22 Erica Farrell APRN ASSOCIATE EMBALMER/FUNERAL DIRECTOR 6405 [facility] [address] [place] [address] Nurse Practitioner Cardiovascular Disease 09/09/21 Teresita Bean [facility] [address] [facility] [address] [place] [phone] Pharmacist Pharmacist 09/24/21 09/29/21 Tavia Wyatt MD Assigned Surgical Provider 11/29/21 05/07/22 Diana Desir, [facility] 3033 [place] [address] Assigned MTM Pharmacist 01/02/22 Rich Barrett MD [address] 315[address] Physician Ophthalmology 01/21/22 Neil Kent MD 500 [place], [place] [address] Dermatology 02/24/22 Roney Story DPM [address] [facility] [address] [place] [address] Assigned Musculoskeletal Provider 03/20/22 08/13/22 Erica Farrell APRN ASSOCIATE EMBALMER/FUNERAL DIRECTOR 1700 [place] [address] Assigned Heart and Vascular Provider 04/03/22 04/16/22 Diana Desir, [facility] [address] [place], [place] 391086 Assigned MTM Pharmacist 04/07/22 Frankie Jelena GarciaSONJA [address] [facility] [address] Assigned Surgical Provider 05/08/22 10/08/22 Galo Burrell MD Assigned Heart and Vascular Provider 04/17/22 06/11/22 Livan Sharif MD [address], [address] [place] [address] Cardiovascular Disease 05/14/22 Livan Sharif MD [address], [address] [place] 19[address] Assigned Heart and Vascular Provider 06/12/22 07/23/22 Catherine Cm MD [address] [place] 8[address]65 Cardiovascular Disease 07/21/22 Valery Veronica, PA-C 909 [place], [place] 022715 Physician Senior Editor Dermatology 07/21/22 Catherine Cm MD [address] [place] 681255 Assigned Heart and Vascular Provider 07/24/22 11/05/22 Johnny Murillo MD [facility] [address] [place] [address] Assigned Musculoskeletal Provider 08/14/22 10/08/22 Brea Quinn APRN ASSOCIATE EMBALMER/FUNERAL DIRECTOR 500 [place] [address] Nurse Practitioner Dermatology 09/21/22 Brea Quinn APRN ASSOCIATE EMBALMER/FUNERAL DIRECTOR 6401 [place], [place] 483022 Assigned Surgical Provider 10/09/22 [place] [address] [facility] 300 [place] [address] Assigned Musculoskeletal Provider 10/09/22 Livan Sharif MD [address], [facility] [address] [place] [address] Assigned Heart and Vascular Provider 11/06/22 11/12/22 Catherine Cm MD [address] [facility] [address] [place] [address] Assigned Heart and Vascular Provider 11/13/22 05/27/23 Sydnie Martinez RN Personal Advocate & Liaison (PAL) Family Medicine 03/28/23 07/31/23 Alfonso Renetria MD [address] [facility] 200 [place], [place] 266896 Assigned Neuroscience Provider 04/02/23 Cheng Todd PA-C [address] [place] [address] Assigned PCP 04/30/23 07/15/23 Radha Lomeli APRN ASSOCIATE EMBALMER/FUNERAL DIRECTOR 6405 [facility] [address] [place] [address] Assigned Heart and Vascular Provider 05/28/23 Jelena David OD [address] [facility] [place] [address] MD Ophthalmology 06/15/23 Pao Joseph, VJ Personal Advocate & Liaison (PAL) Nurse 08/01/23 Esha Grimm PA-C [address] [place] [phone] Assigned PCP 07/16/23 Valery Veronica PA-C [address] [place] [address] Physician Senior Editor Dermatology 09/19/23 Rey Tay MD [address] [place] [address] 050815 Gastroenterology 09/20/23 Rocky Zepeda DO [address] [place] [address] 886515 Physician Gastroenterology 09/20/23 Philip Dumont MD [address] [place] [address] 356845 Physician Ophthalmology 09/22/23 documented as of this encounter
--- OUTSIDE RECORDS SUMMARY | 2023-10-15 21:57 | XMS_ITS | Encounter Summary ---
Author Name Unknown Organization [facility] Address [address] [place] [address] Care Team Providers Care Statistical Methods Teacher Name Role Phone Lita Oseguera Unavailable Unavailable Marija Edgar APRN AUTOMATED LOGISTICS SPECIALIST Primary Care Provider Chanelle Gutierrez PROGRAM MANAGEMENT PROFESSIONAL CN Unavailab le Marija Edgar APRN AUTOMATED LOGISTICS SPECIALIST Unavailable Unavail able Mynor Broussard MD Unavailable [phone] Keisha Dotson MD Unavailable Galo Burrell MD Unavailable Unavailable Diana Desir [facility] Unavailable Rain Galaviz PA-C Unavailable Summer Lara MD Unavailable [phone] Summer Lara MD Unavailable [phone] Summer Lara MD Unavailable [phone] Tavia Wyatt MD Unavailable Unavailable Johnny Murillo MD Unavailable Erica Farrell APRN AUTOMATED LOGISTICS SPECIALIST Unavailable Teresita Bean [facility] Unavailable Tavia Wyatt MD Unavailable Unavailable Daina Desir [facility] Unavailable Rich Barrett MD Unavailable Neil Kent MD Unavailable Roney Story DPM Unavailable Erica Farrell PROGRAM MANAGEMENT PROFESSIONAL AUTOMATED LOGISTICS SPECIALIST Unavailable Thang Diana [place] [facility] Unavailable Jelena David OD Unavailable [phone] Galo Burrell MD Unavailable Unavailable HoLivan MD Unavailable Livan Sharif MD Unavailable + Catherine Cm MD Unavailable + Valery Veronica PA-C Unavailable [phone] Catherine Cm MD Unavailable + Johnny Murillo MD Unavailable [phone] Brea Quinn PROGRAM MANAGEMENT PROFESSIONAL AUTOMATED LOGISTICS SPECIALIST Unavailable [phone] Brea Quinn PROGRAM MANAGEMENT PROFESSIONAL AUTOMATED LOGISTICS SPECIALIST Unavailable [phone] Jose Francisco Johnson MD Unavailable Livan Sharif MD Unavailable Catherine Cm MD Unavailable + Sydnie Martinez RN Unavailable Unavailable Alfonso Renteria MD Unavailable Esah Grimm-C Primary Care Provider Cheng Todd PA-C Unavailable Radha Lomeli PROGRAM MANAGEMENT PROFESSIONAL AUTOMATED LOGISTICS SPECIALIST Unavailable Jelena David OD Unavailable Pao Joseph RN Unavailable Unavailable Esha GrimmC Unavailable [phone] Valery Veronica PA-C Unavailable Rey Tay MD Unavailable Rocky Zepeda DO Unavailable Philip Dumont MD Unavailable [phone] Encounter Details Date Type Department Care Team (Late st Contact Info) Description 04/17/2021 [facility] Medical Advice [address] [address] Marija Edgar, ARLENE AUTOMATED LOGISTICS SPECIALIST Social History Tobacco Use Types Packs/Day Years [...] do you attend chur or anabaptist services? More than 4 times per year 08/07/2020 Do you belong to any clubs o r organizations such as mandaen groups, unions, fraternal or athletic groups, [...] Answer Date Recorded PHQ-2 Score 0 04/02/2021 [facility] Occupat ional Health - [...] or slept in a mcfp (including now)? No 08/11/2020 Warwick Depression Scale Answer Date Recorded Warwick Depression Score 5 01/14/2021 Last EPDS Self [...] have Coronavirus / COVID-19? No / Unsure 04/17/2021 9:40 AM CDT documented as of this encounter Plan of Treatment Upcoming Encounters Date Type Department Care Team (Late st Contact Info) Description 10/25/2023 11:30 AM CDT Virtual Visit [facility] [address] [place] [phone] [address], [address] [place] [address] 11/03/2023 8:00 AM CDT Office Visit [facility] [address] [place] [phone] Valery Veronica PA-C [address] [place] [address] 11/29/2023 8:00 AM CDT Office Visit [facility] [address] [place] [address] [phone] Esha Grimm PA-C [address] [place] [address] 01/02/2024 8:00 AM CDT Office Visit [facility] [address] [place] [address] Lauren Claudio PA-C [address] [place] [address] Kelli Perez MD [address] [place] [address] [id number] documented as of this encounter Visit Diagnoses Not on filedocumented in this encounter Additional Health Concerns Infection Onset Date Last Indicated Resolved Time Rule Out COVID-19 05/11/2021 05/11/2021 05/13/2021 10:18 AM CDT Rule Out COVID-19 07/13/2021 07/13/2021 07/14/2021 3:04 PM FOREIGN POLICY OFFICER Rule Out COVID-19 07/18/2021 07/18/2021 07/20/2021 1:56 PM FOREIGN POLICY OFFICER COVID-19 07/18/2021 07/18/2021 08/08/2021 11:3 9 PM FOREIGN POLICY OFFICER Rule Out COVID-19 12/18/2021 12/18/2021 12/19/2021 11:34 AM CDT Rule Out COVID-19 02/24/2022 02/24/2022 02/25/2022 1:08 PM CDT Rule Out COVID-19 04/26/2022 04/26/2022 04/26/2022 6:47 AM CDT Rule Out COVID-19 05/17/2022 05/17/2022 05/17/2022 10:20 PM FOREIGN POLICY OFFICER Rule Out COVID-19 06/09/2022 06/09/2022 06/09/2022 9:35 AM FOREIGN POLICY OFFICER COVID-19 06/09/2022 06/09/2022 06/30/2022 11:4 1 PM FOREIGN POLICY OFFICER Rule Out COVID-19 11/10/2022 11/10/2022 11/11/2022 12:17 PM CDT Rule Out COVID-19 03/07/2023 03/07/2023 03/07/2023 1:20 PM CDT Assessment Noted Time PHQ-9 Depression Total Score: 2 04/02/20 21 10:19 AM CDT documented as of this encounter Care Teams Statistical Methods Teacher Relationship Specialty Start Date End Date Marija Edgar APRN AUTOMATED LOGISTICS SPECIALIST PCP - General Nurse Practitioner 04/30/20 04/14/23 Esha Grimm PA-C [address] [place] [phone] PCP - General Family Medicine 05/04/23 Lita Oseguera Personal Advocate & Liaison (PAL) 02/28/20 03/27/23 Chanelle Mccann APRN CNM [address] [facility] [address] [place] [address] Assigned OBGYN Provider 05/02/2005/09 Marija Edgar APRN AUTOMATED LOGISTICS SPECIALIST Assigned PCP 06/08/20 04/29/23 Mynor Broussard MD 6363 [facility] 500 [place] [address] Assigned Surgical Provider 06/01/20 11/28/21 Keisha Dotson MD 909 [place] [address] Assigned Neuroscience Provider 06/04/20 04/01/23 Galo Burrell MD Assigned Heart and Vascular Provider 10/05/20 04/02/22 Diana Desir, [facility] [address] [place], [place] 691576 Pharmacist Pharmacist 04/17/21 Rain Galaviz PA-C [address] [place] [address] [place] [address] Physician Electric Motor Tester Assembler Dermatology 04/28/21 Summer Lara MD [address] [facility] [place] [address] Assigned OBGYN Provider 05/10/2105/23 Summer Lara MD [address] [place] [address] 828554 Assigned OBGYN Provider 05/31/21 Summer Lara MD [address] [place] [address] Assigned OBGYN Provider 05/24/2105/30 Tavia Wyatt MD [address] [place] [address] Dermatology 07/14/21 Johnny Murillo MD [address] [place] [address] Assigned Musculoskeletal Provider 08/30/21 03/17/22 Erica Farrell APRN AUTOMATED LOGISTICS SPECIALIST 6405 [facility] S [address] [place] [address] Nurse Practitioner Cardiovascular Disease 09/09/21 Teresita Bean, [facility] [address] [place] [address] Pharmacist Pharmacist 09/24/21 09/29/21 Tavia Wyatt MD Assigned Surgical Provider 11/29/21 05/07/22 Diana Desir, [facility] 3033 [place] [address] Assigned MTM Pharmacist 01/02/22 Rich Barrett MD [address] [address] Physician Ophthalmology 01/21/22 Neil Kent MD 500 [place] [address] Dermatology 02/24/22 Roney Story DPM [id number] [place] [address] [address] [place] [address] Assigned Musculoskeletal Provider 03/20/22 08/13/22 Erica Farrell APRN AUTOMATED LOGISTICS SPECIALIST [address] [place] [address] Assigned Heart and Vascular Provider 04/03/22 04/16/22 Diana Desir, [facility] 3033 [place] [address] Assigned MTM Pharmacist 04/07/22 Jelena David OD [address] [place] [address] Assigned Surgical Provider 05/08/22 10/08/22 Galo Burrell MD Assigned Heart and Vascular Provider 04/17/22 06/11/22 Livan Sharif MD [address], [facility] [address] [place] [address] Cardiovascular Disease 05/14/22 Livan Sharif MD [address], [facility] [address] [place] 216075 Assigned Heart and Vascular Provider 06/12/22 07/23/22 Catherine Cm MD [address] [facility] [address] [place] [id number] Cardiovascular Disease 07/21/22 Valery Veronica, PA-C [address] [place] [address] 747645 Physician Electric Motor Tester Assembler Dermatology 07/21/22 Catherine Cm MD [address] [facility] [address] [place] 475585 Assigned Heart and Vascular Provider 07/24/22 11/05/22 Johnny Murillo MD [address] [place] [address] 157414 Assigned Musculoskeletal Provider 08/14/22 10/08/22 Brea Quinn APRN AUTOMATED LOGISTICS SPECIALIST [address] [place] [address] 879555 Nurse Practitioner Dermatology 09/21/22 Brea Quinn APRN AUTOMATED LOGISTICS SPECIALIST [address] [place] [address] [place] 737222 Assigned Surgical Provider 10/09/22 [place] [address] [address] [place] [address] Assigned Musculoskeletal Provider 10/09/22 Livan Sharif MD [address], [facility] [address] [place] 548665 Assigned Heart and Vascular Provider 11/06/22 11/12/22 Catherine Cm MD [address] [place] 284305 Assigned Heart and Vascular Provider 11/13/22 05/27/23 Sydnie Martinez RN Personal Advocate & Liaison (PAL) Family Medicine 03/28/23 07/31/23 Alfonso Renteira MD 5775 [facility] 200 [place], [place] 243536 Assigned Neuroscience Provider 04/02/23 Cheng Todd PA-C [address] [place] [address] Assigned PCP 04/30/23 07/15/23 Radha Lomeli APRN AUTOMATED LOGISTICS SPECIALIST [address] [place] 020835 Assigned Heart and Vascular Provider 05/28/23 Jelena David OD [address] [place] [address] Ophthalmology 06/15/23 Pao Joseph, RN Personal Advocate & Liaison (PAL) Nurse 08/01/23 Esha Grimm PA-C [address] [place] [phone] Assigned PCP 07/16/23 Valery Veronica PA-C 9 [place] [address] Physician Electric Motor Tester Assembler Dermatology 09/19/23 Rey Tay MD [address] [place] [address] [phone] Gastroenterology 09/20/23 Rocky Zepeda DO [address] [place] [address] 109035 Physician Gastroenterology 09/20/23 Philip Dumont MD [address] [place] [address] 433245 Physician Ophthalmology 09/22/23 documented as of this encounter
--- OUTSIDE RECORDS SUMMARY | 2023-10-15 21:57 | XMS_ITS | Encounter Summary ---
Author Name Unknown Organization [facility] Address [address] [place] [address] Care Team Providers Care Quill Winder Name Role Phone Lita Oseguera Unavailable Unavailable Marija Edgar APRN YARD BRAKEMAN Primary Care Provider U mandaailMarija Callaway APRN YARD BRAKEMAN Unavailable Unavail able Mynor Broussard MD Unavailable [phone] Keisha Dotson MD Unavailable [phone] Galo Burrell MD Unavailable Unavailable Diana Desir [facility] Unavailable [phone] Rain Galaviz PA-C Unavailable Summer Lara MD Unavailable [phone] Tavia Wyatt MD Unavailable Unavailable Johnny Murillo MD Unavailable Erica Farrell APRN YARD BRAKEMAN Unavailable Teresita Bean [facility] Unavailable Tavia Wyatt MD Unavailable Unavailable Diana Desir [facility] Unavailable [phone] Rich Barrett MD Unavailable Neil Kent MD Unavailable Roney Story DPM Unavailable [phone] StoErica pereira APRN YARD BRAKEMAN Unavailable + Diana Desir [facility] Unavailable Jelena David OD Unavailable Galo Burrell MD Unavailable Unavailable Livan Sharif MD Unavailable Livan Sharif MD Unavailable IsCatherine hobbs MD Unavailable + Valery Veronica PA-C Unavailable [phone] Catherine Cm MD Unavailable + Johnny Murillo MD Unavailable [phone] Brea Quinn VALUE STREAM LEADER YARD BRAKEMAN Unavailable [phone] Brea Quinn VALUE STREAM LEADER YARD BRAKEMAN Unavailable [phone] Jose Francisco Johnson MD Unavailable Livan Sharif MD Unavailable + IsCatherine hobbs MD Unavailable + Sydnie Martinez RN Unavailable Unavailable Alfonso Renteria MD Unavailable Esha Grimm PA-C Primary Care Provider Cheng Todd PA-C Unavailable Radha Lomeli VALUE STREAM LEADER YARD BRAKEMAN Unavailable [phone] Jelena David OD Unavailable [phone] Pao Joseph RN Unavailable Unavailable Esha Grimm-C Unavailable [phone] Valery Veronica PA-C Unavailable [phone] Rey Tay MD Unavailable Rocky Zepeda DO Unavailable Philip Dumont MD Unavailable [phone] Encounter Details Date Type Department Care Team (Late st Contact Info) Description 06/01/2021 [facility] Medical Advice [address] [address] Diana Desir, [facility] [address] [place] [address] Social History Tobacco Use Types Packs/Day Years [...] How often do you attend chur or nondenominational services? More than 4 times per year [...] Answer Date Recorded PHQ-2 Score 0 04/02/2021 [facility] Occupat ional Health - Occupational Stress [...] or slept in a fci (including now)? No 08/11/2020 Minerva Depression Scale Answer Date Recorded Minerva [...] have Coronavirus / COVID-19? No / Unsure 05/11/2021 4:19 PM CDT documented as of this encounter Miscellaneous Notes * Telephone Encounter - Diana Desir [facility] - 06/01/2021 3:43 PM CST Called patient and reassured 50 mg dose increase in sertraline is typical and okay to do. She will closely monitor changes in mental health over next couple weeks. Answered all questions. Diana Desir, PharmD Medication Therapy Management Provider, [facility] Pager: [phone] L CUT OFF SAW TENDER documented in this encounter Plan of Treatment Upcoming Encounters Date Type Department Care Team (Late st Contact Info) Description 10/25/2023 11:30 AM CDT Virtual Visit [facility] [address] [place] [phone] Nelly Mesa, [address] [place], [place] 5960[address] 11/03/2023 8:00 AM CDT Office Visit [address] [phone] Valery Veronica, PAUcheC [address] [place] [address] 11/29/2023 8:00 AM CDT Office Visit [facility] [address] [place] [phone] Esha Grimm PA-C [address] [place] [address] 01/02/2024 8:00 AM CDT Office Visit [facility] [address] [place] [phone] Lauren Claudio PA-C [address] [place] [address] Kelli Perez MD [address] [place], [place] [phone] documented as of this encounter Visit Diagnoses Not on filedocumented in this encounter Additional Health Concerns Infection Onset Date Last Indicated Resolved Time Rule Out COVID-19 07/13/2021 07/13/2021 07/14/2021 3:04 PM METAL CUT OFF SAW TENDER Rule Out COVID-19 07/18/2021 07/18/2021 07/20/2021 1:56 PM METAL CUT OFF SAW TENDER COVID-19 07/18/2021 07/18/2021 08/08/2021 11:3 9 PM METAL CUT OFF SAW TENDER Rule Out COVID-19 12/18/2021 12/18/2021 12/19/2021 11:34 AM CDT Rule Out COVID-19 02/24/2022 02/24/2022 02/25/2022 1:08 PM CDT Rule Out COVID-19 04/26/2022 04/26/2022 04/26/2022 6:47 AM CDT Rule Out COVID-19 05/17/2022 05/17/2022 05/17/2022 10:20 PM METAL CUT OFF SAW TENDER Rule Out COVID-19 06/09/2022 06/09/2022 06/09/2022 9:35 AM METAL CUT OFF SAW TENDER COVID-19 06/09/2022 06/09/2022 06/30/2022 11:4 1 PM METAL CUT OFF SAW TENDER Rule Out COVID-19 11/10/2022 11/10/2022 11/11/2022 12:17 PM CDT Rule Out COVID-19 03/07/2023 03/07/2023 03/07/2023 1:20 PM CDT Assessment Noted Time PHQ-9 Depression Total Score: 2 04/02/20 10:19 AM CDT documented as of this encounter Care Teams Quill Winder Relationship Specialty Start Date End Date Marija Edgar APRN YARD BRAKEMAN PCP - General Nurse Practitioner 04/30/20 04/14/23 Esha Grimm, PAUcheC [address] [place] [address] PCP - General Family Medicine 05/04/23 Lita Oseguera Personal Advocate & Liaison (PAL) 02/28/20 03/27/23 Marija Edgar APRN YARD BRAKEMAN Assigned PCP 06/08/20 04/29/23 Mynor Broussard MD 6363 [facility] 500 [place] [address] Assigned Surgical Provider 06/01/20 11/28/21 Keisha Dotson MD 909 [place] [address] Assigned Neuroscience Provider 06/04/20 04/01/23 Galo Burrell MD Assigned Heart and Vascular Provider 10/05/20 04/02/22 Diana Desir, [facility] 30[address] [place], [place] 389726 Pharmacist Pharmacist 04/17/21 Rain Galaviz PA-C [address] [place] [address] [place] [address] Physician Electric Sealing Machine Operator Dermatology 04/28/21 Summer Lara MD [address] [place], [place] 573[address] Assigned OBGYN Provider 05/31/21 2 Tavia Wyatt MD [address] [place] [address] Dermatology 07/14/21 Johnny Murillo MD [address] [place], [place] 467424 Assigned Musculoskeletal Provider 08/30/21 03/17/22 Erica Farrell APRN YARD BRAKEMAN [address] [facility] [address] [place], [place] [address] Nurse Practitioner Cardiovascular Disease 09/09/21 Teresita Bean, [facility] [address] [place] [address] Pharmacist Pharmacist 09/24/21 09/29/21 Tavia Wyatt MD Assigned Surgical Provider 11/29/21 05/07/22 Diana Desir, [facility] [address] [place] [address] Assigned MTM Pharmacist 01/02/22 Rich Barrett MD 516 [facility] 9A [place] [address] Physician Ophthalmology 01/21/22 Neil Kent MD 500 [place] [address] Dermatology 02/24/22 Roney Story DPM [address] [facility] [address] [place] [address] Assigned Musculoskeletal Provider 03/20/22 08/13/22 Erica Farrell APRN YARD BRAKEMAN 1700 [place] [address] Assigned Heart and Vascular Provider 04/03/22 04/16/22 [facility] [address] [place] [address] Assigned MTM Pharmacist 04/07/22 Jelena David OD [address] [facility] [place] [address] Assigned Surgical Provider 05/08/22 10/08/22 Galo Burrell MD Assigned Heart and Vascular Provider 04/17/22 06/11/22 Livan Sharif MD [address] [place] [address] Cardiovascular Disease 05/14/22 Livan Sharif MD [address] [place] [address] Assigned Heart and Vascular Provider 06/12/22 07/23/22 Catherine Cm MD [address] [email or web address] [place] [address] Cardiovascular Disease 07/21/22 Valery Veronica, PALOMAC 909 [place] [address] Physician Electric Sealing Machine Operator Dermatology 07/21/22 Catherine Cm MD [address] [facility] [[email or web address]00 [place] [address] Assigned Heart and Vascular Provider 07/24/22 11/05/22 Johnny Murillo MD [address] [place] [address] 066214 Assigned Musculoskeletal Provider 08/14/22 10/08/22 Brea Quinn APRN YARD BRAKEMAN [address] [place] [address] 564635 Nurse Practitioner Dermatology 09/21/22 Brea Quinn APRN YARD BRAKEMAN [address] [place] [address] [facility] [place] [address] Assigned Surgical Provider 10/09/22 [place] [address] RAZO [facility] [place] 348267 Assigned Musculoskeletal Provider 10/09/22 Livan Sharif MD [address] [facility] [[email or web address]]00 [place] 220185 Assigned Heart and Vascular Provider 11/06/22 11/12/22 Catherine Cm MD [address] [place] [address] Assigned Heart and Vascular Provider 11/13/22 05/27/23 Sydnie Martinez RN Personal Advocate & Liaison (PAL) Family Medicine 03/28/23 07/31/23 Alfonso Renteria MD [address] [facility] [address] 200 [place], [place] 020036 Assigned Neuroscience Provider 04/02/23 Cheng Todd PA-C [address] [place], [place] 63348124 Assigned PCP 04/30/23 07/15/23 Radha Lomeli, ARLENE YARD BRAKEMAN [address] [place] 49[address]35 Assigned Heart and Vascular Provider 05/28/23 Jelena David OD 3305 [facility] [place] [address] Ophthalmology 06/15/23 Pao Joseph, VJ Personal Advocate & Liaison (PAL) Nurse 08/01/23 Esha Grimm PA-C [address] [place] [phone] Assigned PCP 07/16/23 Valrey Veronica PA-C 909 [place], [place] 033855 Physician Electric Sealing Machine Operator Dermatology 09/19/23 Rey Tay MD 909 [place], [place] 551655 MD Gastroenterology 09/20/23 Rocky Zepeda DO [address] [place] [address] [phone] Physician Gastroenterology 09/20/23 Philip Dumont MD [address] [place] [address] 166065 Physician Ophthalmology 09/22/23 documented as of this encounter
--- OUTSIDE RECORDS SUMMARY | 2023-10-15 21:57 | XMS_ITS | Encounter Summary ---
Author Name Unknown Organization [facility] Address [address] [place] [address] Care Team Providers Care Mechanical Handyman Name Role Phone Lita Oseguera Unavailable Unavailable Marija Edgar APRN ACCOUNTS RECEIVABLE BOOKKEEPER Primary Care Provider Chanelle Gutierrez MOLDING MANAGER CN Unavailab le Marija Edgar APRN ACCOUNTS RECEIVABLE BOOKKEEPER Unavailable Unavail able Mynor Broussard MD Unavailable [phone] Kiesha Dotson MD Unavailable Galo Burrell MD Unavailable Unavailable Diana Desir [facility] Unavailable Rain Galaviz PA-C Unavailable Summer Lara MD Unavailable [phone] Summer Lara MD Unavailable [phone] Summer Lara MD Unavailable [phone] Tavia Wyatt MD Unavailable Unavailable Johnny Murillo MD Unavailable Erica Farrell APRN ACCOUNTS RECEIVABLE BOOKKEEPER Unavailable Teresita Bean [facility] Unavailable [phone] Tavia Wyatt MD Unavailable Unavailable Diana Desir [facility] Unavailable Rich Barrett MD Unavailable eNil Kent MD Unavailable Roney Story DPM Unavailable Erica Farrell MOLDING MANAGER ACCOUNTS RECEIVABLE BOOKKEEPER Unavailable Thang Diana [place] [facility] Unavailable Jelena David OD Unavailable [phone] Galo Burrell MD Unavailable Unavailable HoLivan MD Unavailable Livan Sharif MD Unavailable + Catherine Cm MD Unavailable + Valery Veronica PA-C Unavailable [phone] Catherine Cm MD Unavailable + Johnny Murillo MD Unavailable [phone] Brea Quinn MOLDING MANAGER ACCOUNTS RECEIVABLE BOOKKEEPER Unavailable [phone] Brea Quinn MOLDING MANAGER ACCOUNTS RECEIVABLE BOOKKEEPER Unavailable [phone] Jose Francisco Johnson MD Unavailable Livan Sharif MD Unavailable Catherine Cm MD Unavailable + Sydnie Martinez RN Unavailable Unavailable Alfonso Renteria MD Unavailable Esha Grimm-C Primary Care Provider Cheng Todd PA-C Unavailable Radha Lomeli MOLDING MANAGER ACCOUNTS RECEIVABLE BOOKKEEPER Unavailable Jelena David OD Unavailable Pao Joseph RN Unavailable Unavailable Esha GrimmC Unavailable [phone] Valery Veronica PA-C Unavailable Rey Tay MD Unavailable Rocky Zepeda DO Unavailable Philip Dumont MD Unavailable [phone] Encounter Details Date Type Department Care Team (Late st Contact Info) Description 04/28/2021 MyC Medical Advice [address] [address] Lauren Gan, RN Social History Tobacco Use Types Packs/Day [...] 08/07/2020 How often do you attend chur ch or sabianist services? More than 4 times per year 08/07/2020 Do you belong to any clubs o r organizations such as oriental orthodox groups, unions, fraternal or athletic [...] Answer Date Recorded PHQ-2 Score 0 04/02/2021 [facility] - Occupational [...] in a care home (including now)? No 08/11/2020 Odin Depression Scale Answer Date Recorded Odin Depression Score 5 01/14/2021 Last EPDS Self [...] or suspected to have Coronavirus / COVID-19? Unable to assess 04/28/2021 10:52 AM CD T documented as of this encounter Plan of Treatment Upcoming Encounters Date Type Department Care Team (Late st Contact Info) Description 10/25/2023 11:30 AM CDT Virtual Visit [facility] [address] [place] [phone] Nelly Mes[address], [address] [place] [address] 11/03/2023 8:00 AM CDT Office Visit [address] [phone] Valery Veronica PA-C [address] [place] [address] 11/29/2023 8:00 AM CDT Office Visit [facility] [address] [place] [phone] Esha Grimm PA-C [id number] [place] [phone] 01/02/2024 8:00 AM CDT Office Visit [facility] [address] [place] [address] Lauren Claudio PA-C [address] [place] [address] Kelli Perez MD [address] [phone] documented as of this encounter Visit Diagnoses Not on filedocumented in this encounter Additional Health Concerns Infection Onset Date Last Indicated Resolved Time Rule Out COVID-19 05/11/2021 05/11/2021 05/13/2021 10:18 AM CDT Rule Out COVID-19 07/13/2021 07/13/2021 07/14/2021 3:04 PM AUTOMOBILE ACCESSORIES INSTALLER Rule Out COVID-19 07/18/2021 07/18/2021 07/20/2021 1:56 PM AUTOMOBILE ACCESSORIES INSTALLER COVID-19 07/18/2021 07/18/2021 08/08/2021 11:3 9 PM AUTOMOBILE ACCESSORIES INSTALLER Rule Out COVID-19 12/18/2021 12/18/2021 12/19/2021 11:34 AM CDT Rule Out COVID-19 02/24/2022 02/24/2022 02/25/2022 1:08 PM CDT Rule Out COVID-19 04/26/2022 04/26/2022 04/26/2022 6:47 AM CDT Rule Out COVID-19 05/17/2022 05/17/2022 05/17/2022 10:20 PM AUTOMOBILE ACCESSORIES INSTALLER Rule Out COVID-19 06/09/2022 06/09/2022 06/09/2022 9:35 AM AUTOMOBILE ACCESSORIES INSTALLER COVID-19 06/09/2022 06/09/2022 06/30/2022 11:4 1 PM AUTOMOBILE ACCESSORIES INSTALLER Rule Out COVID-19 11/10/2022 11/10/2022 11/11/2022 12:17 PM CDT Rule Out COVID-19 03/07/2023 03/07/2023 03/07/2023 1:20 PM CDT Assessment Noted Time PHQ-9 Depression Total Score: 2 04/02/20 21 10:19 AM CDT documented as of this encounter Care Teams Mechanical Handyman Relationship Specialty Start Date End Date Marija Edgar APRN ACCOUNTS RECEIVABLE BOOKKEEPER PCP - General Nurse Practitioner 04/30/20 04/14/23 Esha Grimm PA-C [address] [place] [phone] PCP - General Family Medicine 05/04/23 Lita Oseguera Personal Advocate & Liaison (PAL) 02/28/20 03/27/23 Chanelle Mccann APRN CNAdam [address] [place] [address] 200 [place] [address] Assigned OBGYN Provider 05/02/2005/09 Marija Edgar APRN ACCOUNTS RECEIVABLE BOOKKEEPER Assigned PCP 06/08/20 04/29/23 Mynor Broussard MD 6363 [facility] 500 [place] [address] Assigned Surgical Provider 06/01/20 11/28/21 Keisha Dotson MD 909 [place] [address] Assigned Neuroscience Provider 06/04/20 04/01/23 Galo Burrell MD Assigned Heart and Vascular Provider 10/05/20 04/02/22 Diana Desir, [facility] 3033 [place], [place] 699326 Pharmacist Pharmacist 04/17/21 Rain Galaviz PA-C [address] [place] [address] [address] [facility] [place] [address] Physician Sheet Cutter Dermatology 04/28/21 Summer Lara MD [address] [place] [address] [place] [address] Assigned OBGYN Provider 05/10/2105/23 Summer Lara MD [address] [place] [address] 975274 Assigned OBGYN Provider 05/31/21 Summer Lara MD [address] [place] [address] Assigned OBGYN Provider 05/24/2105/30 Tavia Wyatt MD [address] [place] [address] Dermatology 07/14/21 Johnny Murillo MD [address] [facility] [address] [place] [address] Assigned Musculoskeletal Provider 08/30/21 03/17/22 Erica Farrell APRN ACCOUNTS RECEIVABLE BOOKKEEPER [address] [facility] [address] [place] [address] Nurse Practitioner Cardiovascular Disease 09/09/21 Teresita Bean, [facility] [address] [place] [address] Pharmacist Pharmacist 09/24/21 09/29/21 Tavia Wyatt MD Assigned Surgical Provider 11/29/21 05/07/22 Diana Desir, [facility] 3033 [place] [address] Assigned MTM Pharmacist 01/02/22 Rich Barrett MD [address] [place] [address] Physician Ophthalmology 01/21/22 Neil Kent MD 500 [place] [address] Dermatology 02/24/22 Roney Story DPM [id number] [place] [address] [address] [place] [address] Assigned Musculoskeletal Provider 03/20/22 08/13/22 Erica Farrell APRN ACCOUNTS RECEIVABLE BOOKKEEPER [address] [place] [address] Assigned Heart and Vascular Provider 04/03/22 04/16/22 Diana Desir, [facility] [address] [place] [address] Assigned MTM Pharmacist 04/07/22 Jelena David OD [address] [place] [address] [place] [address] Assigned Surgical Provider 05/08/22 10/08/22 Galo Burrell MD Assigned Heart and Vascular Provider 04/17/22 06/11/22 Livan Sharif MD [address], [facility] [address] [place] 659505 Cardiovascular Disease 05/14/22 Livan Sharif MD [address], [facility] [address] [place] 143375 Assigned Heart and Vascular Provider 06/12/22 07/23/22 Catherine Cm MD [address] [facility] [address] [place] 920635 Cardiovascular Disease 07/21/22 Valery Veronica, PA-C [address] [place] [address] 272625 Physician Sheet Cutter Dermatology 07/21/22 Catherine Cm MD [address] [facility] [place] 286395 Assigned Heart and Vascular Provider 07/24/22 11/05/22 Johnny Murillo MD [address] [place] [address] 407894 Assigned Musculoskeletal Provider 08/14/22 10/08/22 Brea Quinn APRN ACCOUNTS RECEIVABLE BOOKKEEPER [address] [place] [address] 726115 Nurse Practitioner Dermatology 09/21/22 Brea Quinn APRN ACCOUNTS RECEIVABLE BOOKKEEPER [address] [place] [address] [place] 097962 Assigned Surgical Provider 10/09/22 [place] [address] [address] [place] [address] Assigned Musculoskeletal Provider 10/09/22 Livan Sharif MD [address], [facility] [address] [place] 635075 Assigned Heart and Vascular Provider 11/06/22 11/12/22 Catherine Cm MD [address] [place] 356865 Assigned Heart and Vascular Provider 11/13/22 05/27/23 Sydnie Martinez RN Personal Advocate & Liaison (PAL) Family Medicine 03/28/23 07/31/23 Alfonso Renteria MD 5775 [facility] 200 [place], [place] 885736 Assigned Neuroscience Provider 04/02/23 Cheng Todd PA-C [address] [place] [address] Assigned PCP 04/30/23 07/15/23 Radha Lomeli, MOLDING MANAGER ACCOUNTS RECEIVABLE BOOKKEEPER [address] [place] 924815 Assigned Heart and Vascular Provider 05/28/23 Jelena David OD [address] [facility] [address] Ophthalmology 06/15/23 Jake, Pao, RN Personal Advocate & Liaison (PAL) Nurse 08/01/23 Esha Grimm PA-C [address] [place] [phone] Assigned PCP 07/16/23 Valery Veronica PA-C 9 [place] [address] Physician Sheet Cutter Dermatology 09/19/23 Rey Tay MD [address] [place] [address] Gastroenterology 09/20/23 Rocky Zepeda DO [address] [place] [address] 236125 Physician Gastroenterology 09/20/23 Philip Dumont MD [address] [place] [address] 185295 Physician Ophthalmology 09/22/23 documented as of this encounter
--- OUTSIDE RECORDS SUMMARY | 2023-10-15 21:57 | XMS_ITS | Encounter Summary ---
Author Name Unknown Organization [facility] Address [address] [place] [address] Care Team Providers Care Biochemistry Technician Name Role Phone Lita Oseguera Unavailable Unavailable Marija Edgar APRN MICA WASHER GLUER Primary Care Provider U mandaailMarija Callaway APRN MICA WASHER GLUER Unavailable Unavail able Mynor Broussard MD Unavailable [phone] Keisha Dotson MD Unavailable Galo Burrell MD Unavailable Unavailable Diana Desir [facility] Unavailable Rain Galaviz PA-C Unavailable Summer Lara MD Unavailable [phone] Tavia Wyatt MD Unavailable Unavailable Johnny Murillo MD Unavailable Erica Farrell APRN MICA WASHER GLUER Unavailable Teresita Bean [facility] Unavailable Tavia Wyatt MD Unavailable Unavailable Diana Desir [facility] Unavailable [phone] Rich Barrett MD Unavailable Neil Kent MD Unavailable Roney Story DPM Unavailable [phone] StoErica pereira APRN MICA WASHER GLUER Unavailable + Diana Desir [facility] Unavailable Jelena David OD Unavailable Galo Burrell MD Unavailable Unavailable Livan Sharif MD Unavailable Livan Sharif MD Unavailable IsCatherine hobbs MD Unavailable + Valery Veronica PA-C Unavailable [phone] Catherine Cm MD Unavailable + Johnny Murillo MD Unavailable [phone] Brea Quinn CANNED FOOD RECONDITIONING INSPECTOR MICA WASHER GLUER Unavailable [phone] Brea Quinn CANNED FOOD RECONDITIONING INSPECTOR MICA WASHER GLUER Unavailable [phone] Jose Francisco Johnson MD Unavailable Livan Sharif MD Unavailable + IsCatherine hobbs MD Unavailable + Sydnie Martinez RN Unavailable Unavailable Alfonso Renteria MD Unavailable Esha Grimm PA-C Primary Care Provider Cheng Todd PA-C Unavailable Radha Lomeli CANNED FOOD RECONDITIONING INSPECTOR MICA WASHER GLUER Unavailable [phone] Jelena David OD Unavailable [phone] Pao Joseph RN Unavailable Unavailable Esha Grimm-C Unavailable [phone] Valery Veronica PA-C Unavailable [phone] Rey Tay MD Unavailable Rocky Zepeda DO Unavailable Philip Dumont MD Unavailable [phone] Encounter Details Date Type Department Care Team (Late st Contact Info) Description 06/03/2021 MyC Medical Advice [address] [address] Diana Desir, [facility] [address] [place] [address] Social History Tobacco Use Types Packs/Day Years [...] How often do you attend chur or voodoo services? More than 4 times per year [...] Answer Date Recorded PHQ-2 Score 0 04/02/2021 [facility] of Occupat ional Health - Occupational Stress [...] in a custodial (including now)? No 08/11/2020 Fouke Depression Scale Answer Date Recorded Fouke Depression Score 5 01/14/2021 Last EPDS Self [...] Description 10/25/2023 11:30 AM CDT Virtual Visit [facility] [address] [phone] Nelly Mesa, RD [address] [place] [address] 11/03/2023 8:00 AM CDT Office Visit [address] [phone] Valery Veronica PA-C [address] [place] [address] 11/29/2023 8:00 AM CDT Office Visit [facility] [address] [place] [phone] Esha Grimm PA-C [address] [place] [address] 01/02/2024 8:00 AM CDT Office Visit [facility] [address] [place] [phone] Lauren Claudio PA-C [address] [place] [address] Kelli Perez MD [address] [address] [address] documented as of this encounter Visit Diagnoses Not on filedocumented in this encounter Additional Health Concerns Infection Onset Date Last Indicated Resolved Time Rule Out COVID-19 07/13/2021 07/13/2021 07/14/2021 3:04 PM DIRECTOR PHARMACEUTICAL Rule Out COVID-19 07/18/2021 07/18/2021 07/20/2021 1:56 PM DIRECTOR PHARMACEUTICAL COVID-19 07/18/2021 07/18/2021 08/08/2021 11:3 9 PM DIRECTOR PHARMACEUTICAL Rule Out COVID-19 12/18/2021 12/18/2021 12/19/2021 11:34 AM CDT Rule Out COVID-19 02/24/2022 02/24/2022 02/25/2022 1:08 PM CDT Rule Out COVID-19 04/26/2022 04/26/2022 04/26/2022 6:47 AM CDT Rule Out COVID-19 05/17/2022 05/17/2022 05/17/2022 10:20 PM DIRECTOR PHARMACEUTICAL Rule Out COVID-19 06/09/2022 06/09/2022 06/09/2022 9:35 AM DIRECTOR PHARMACEUTICAL COVID-19 06/09/2022 06/09/2022 06/30/2022 11:4 1 PM DIRECTOR PHARMACEUTICAL Rule Out COVID-19 11/10/2022 11/10/2022 11/11/2022 12:17 PM CDT Rule Out COVID-19 03/07/2023 03/07/2023 03/07/2023 1:20 PM CDT Assessment Noted Time PHQ-9 Depression Total Score: 2 04/02/20 10:19 AM CDT documented as of this encounter Care Teams Biochemistry Technician Relationship Specialty Start Date End Date Marija Edgar APRN MICA WASHER GLUER PCP - General Nurse Practitioner 04/30/20 04/14/23 Esha Grimm PA-C [address] [place] [address] PCP - General Family Medicine 05/04/23 Lita Oseguera Personal Advocate & Liaison (PAL) 02/28/20 03/27/23 Marija Edgar APRN MICA WASHER GLUER Assigned PCP 06/08/20 04/29/23 Mynor Broussard MD 6363 [facility] 500 [place] [address] Assigned Surgical Provider 06/01/20 11/28/21 Keisha Dotson MD 909 [place], [place] [phone] Assigned Neuroscience Provider 06/04/20 04/01/23 Galo Burrell MD Assigned Heart and Vascular Provider 10/05/20 04/02/22 Diana Desir, [facility] [address] [place] [address] Pharmacist Pharmacist 04/17/21 Rain Galaviz PA-C [address] [place] [address] [address] [facility] [place] [address] Physician Press Secretary Dermatology 04/28/21 Summer Lara MD [address] [place] [address] 068284 Assigned OBGYN Provider 05/31/21 2 Tavia Wyatt MD [address] [address] Dermatology 07/14/21 Johnny Murillo MD [address] [place] [address] Assigned Musculoskeletal Provider 08/30/21 03/17/22 Erica Farrell, CANNED FOOD RECONDITIONING INSPECTOR MICA WASHER GLUER [address] [place], [place] 855395 Nurse Practitioner Cardiovascular Disease 09/09/21 Teresita Bean, [facility] [address] [place], [place] [phone] Pharmacist Pharmacist 09/24/21 09/29/21 Tavia Wyatt MD Assigned Surgical Provider 11/29/21 05/07/22 [facility] [address] [place] [address] Assigned MTM Pharmacist 01/02/22 Rich Barrett MD [address] [facility] 9[address] [place], [place] 382865 Physician Ophthalmology 01/21/22 Neil Kent MD 500 [place], [place] [phone] Dermatology 02/24/22 Roney Story DPM [address] [facility] [address] [place], [place] 680217 Assigned Musculoskeletal Provider 03/20/22 08/13/22 Erica Farrell APRN MICA WASHER GLUER 1700 [place] [address] Assigned Heart and Vascular Provider 04/03/22 04/16/22 Diana Desir, [facility] [address] [place] [address] Assigned MTM Pharmacist 04/07/22 Jelena David OD [address] [facility] [address] Assigned Surgical Provider 05/08/22 10/08/22 Galo Burrell MD Assigned Heart and Vascular Provider 04/17/22 06/11/22 Livan Sharif MD [address], [address] [place] [address] Cardiovascular Disease 05/14/22 Livan Sharif MD [address], [address] [place] [address] Assigned Heart and Vascular Provider 06/12/22 07/23/22 Catherine Cm MD [address] [place] 113425 Cardiovascular Disease 07/21/22 Valery Veronica, PAUcheC 909 [place] [address] Physician Press Secretary Dermatology 07/21/22 IsCatherine hobbs MD [address] [facility]00 [place] 813665 Assigned Heart and Vascular Provider 07/24/22 11/05/22 Johnny Murillo MD [address] 855694 Assigned Musculoskeletal Provider 08/14/22 10/08/22 Brea Quinn APRN MICA WASHER GLUER 500 [place], [place] [phone] Nurse Practitioner Dermatology 09/21/22 Brea Quinn APRN MICA WASHER GLUER 6401 [facility] [place] 890522 Assigned Surgical Provider 10/09/22 [place] [address] [place] [address] 522327 Assigned Musculoskeletal Provider 10/09/22 Livan Sharif MD [address] [facility]00 [place] [address] Assigned Heart and Vascular Provider 11/06/22 11/12/22 Catherine Cm MD [address] [facility] [address] [place] 107515 Assigned Heart and Vascular Provider 11/13/22 05/27/23 Sydnie Martinez RN Personal Advocate & Liaison (PAL) Family Medicine 03/28/23 07/31/23 Alfonso Renteria MD [address] [place] [address] Assigned Neuroscience Provider 04/02/23 Cheng Todd PA-C [address] [place], [place] 19360124 Assigned PCP 04/30/23 07/15/23 Radha Lomeli APRN MICA WASHER GLUER [address] [place], [place] 155825 Assigned Heart and Vascular Provider 05/28/23 Jelena David OD [address] [facility] [address] Ophthalmology 06/15/23 Pao Joseph, VJ Personal Advocate & Liaison (PAL) Nurse 08/01/23 Esha Grimm PA-C [address] [place] [phone] Assigned PCP 07/16/23 Valery Veronica PA-C [address] [place] [address] 345025 Physician Press Secretary Dermatology 09/19/23 Rey Tay MD [address] [place] [address] [phone] Gastroenterology 09/20/23 Rocky Zepeda DO [address] [place] [address] Physician Gastroenterology 09/20/23 Philip Dumont MD 6 [place] [address] Physician Ophthalmology 09/22/23 documented as of this encounter
--- OUTSIDE RECORDS SUMMARY | 2023-10-15 21:57 | XMS_ITS | Encounter Summary ---
Author Name Unknown Organization [facility] Address [address] [place] [address] Care Team Providers Care Pulp Mill Operator Name Role Phone Lita Oseguera Unavailable Unavailable Marija Edgar APRN MOLDING LINE OPERATOR Primary Care Provider Chanelle Gutierrez SKIING TEACHER CN Unavailab le Marija Edgar APRN MOLDING LINE OPERATOR Unavailable Unavail able Mynor Broussard MD Unavailable [phone] Keisha Dotson MD Unavailable Galo Burrell MD Unavailable Unavailable Diana Desir [facility] Unavailable Rain Galaviz PA-C Unavailable Summer Lara MD Unavailable [phone] Summer Lara MD Unavailable [phone] Summer Lara MD Unavailable [phone] Tvaia Wyatt MD Unavailable Unavailable Johnny Murillo MD Unavailable Erica Farrell APRN MOLDING LINE OPERATOR Unavailable Teresita Bean [facility] Unavailable [phone] Tavia Wyatt MD Unavailable Unavailable Diana Desir [facility] Unavailable [phone] Rich Barrett MD Unavailable Neil Kent MD Unavailable Roney Story DPM Unavailable Erica Farrell SKIING TEACHER MOLDING LINE OPERATOR Unavailable Thang Diana [place] [facility] Unavailable Jelena David OD Unavailable [phone] Galo Burrell MD Unavailable Unavailable HoLivan MD Unavailable Livan Sharif MD Unavailable + Catherine Cm MD Unavailable + Valery Veronica PA-C Unavailable [phone] Catherine Cm MD Unavailable + Johnny Murillo MD Unavailable [phone] Brea Quinn SKIING TEACHER MOLDING LINE OPERATOR Unavailable [phone] Brea Quinn SKIING TEACHER MOLDING LINE OPERATOR Unavailable [phone] Jose Francisco Johnson MD Unavailable Livan Sharif MD Unavailable Catherine Cm MD Unavailable + Sydnie Martinez RN Unavailable Unavailable Alfonso Renteria MD Unavailable Esha Grimm-C Primary Care Provider Cheng Todd PA-C Unavailable Radha Lomeli SKIING TEACHER MOLDING LINE OPERATOR Unavailable Jelena David OD Unavailable Pao Joseph RN Unavailable Unavailable Esha GrimmC Unavailable [phone] Valery Veronica PA-C Unavailable [phone] Rey Tay MD Unavailable Rocyk Zepeda DO Unavailable Philip Dumont MD Unavailable [phone] Encounter Details Date Type Department Care Team (Late st Contact Info) Description 05/05/2021 MyC Medical Advice [address] [address] Lauren Gan, RN Social History [...] often do you attend chur ch or rastafari services? More than 4 times per year [...] Answer Date Recorded PHQ-2 Score 0 04/02/2021 [facility] - Occupational [...] a senior living (including now)? No 08/11/2020 [place] Depression Scale Answer Date Recorded [place] Depression Score 5 01/14/2021 Last EPDS Self [...] have Coronavirus / COVID-19? No / Unsure 05/08/2021 2:02 PM CDT documented as of this encounter Plan of Treatment Upcoming Encounters Date Type Department Care Team (Late st Contact Info) Description 10/25/2023 11:30 AM CDT Virtual Visit [facility] [address] [place] [phone] Nelly Mesa, RD [address] [place] [address] 11/03/2023 8:00 AM CDT Office Visit [address] [phone] Valery Veronica PA-C [address] [place] [address] 11/29/2023 8:00 AM CDT Office Visit [facility] [id number] [place] [phone] Esha Grimm PA-C [id number] [place] [address] 01/02/2024 8:00 AM CDT Office Visit [facility] [address] [place] [address] Lauren Claudio PA-C [address] [place] [address] Kelli Perez MD [address] [id number] documented as of this encounter Visit Diagnoses Not on filedocumented in this encounter Additional Health Concerns Infection Onset Date Last Indicated Resolved Time Rule Out COVID-19 05/11/2021 05/11/2021 05/13/2021 10:18 AM CDT Rule Out COVID-19 07/13/2021 07/13/2021 07/14/2021 3:04 PM PATIENT PLACEMENT COORDINATOR Rule Out COVID-19 07/18/2021 07/18/2021 07/20/2021 1:56 PM PATIENT PLACEMENT COORDINATOR COVID-19 07/18/2021 07/18/2021 08/08/2021 11:3 9 PM PATIENT PLACEMENT COORDINATOR Rule Out COVID-19 12/18/2021 12/18/2021 12/19/2021 11:34 AM CDT Rule Out COVID-19 02/24/2022 02/24/2022 02/25/2022 1:08 PM CDT Rule Out COVID-19 04/26/2022 04/26/2022 04/26/2022 6:47 AM CDT Rule Out COVID-19 05/17/2022 05/17/2022 05/17/2022 10:20 PM PATIENT PLACEMENT COORDINATOR Rule Out COVID-19 06/09/2022 06/09/2022 06/09/2022 9:35 AM PATIENT PLACEMENT COORDINATOR COVID-19 06/09/2022 06/09/2022 06/30/2022 11:4 1 PM PATIENT PLACEMENT COORDINATOR Rule Out COVID-19 11/10/2022 11/10/2022 11/11/2022 12:17 PM CDT Rule Out COVID-19 03/07/2023 03/07/2023 03/07/2023 1:20 PM CDT Assessment Noted Time PHQ-9 Depression Total Score: 2 04/02/20 10:19 AM CDT documented as of this encounter Care Teams Pulp Mill Operator Relationship Specialty Start Date End Date Marija Edgar APRN MOLDING LINE OPERATOR PCP - General Nurse Practitioner 04/30/20 04/14/23 Esha Grimm PA-C [address] [place] [phone] PCP - General Family Medicine 05/04/23 Lita Oseguera Personal Advocate & Liaison (PAL) 02/28/20 03/27/23 Chanelle Mccann APRN CNAdam [id number] [place] [address] 200 [place] [address] Assigned OBGYN Provider 05/02/2005/09 Marija Edgar APRN MOLDING LINE OPERATOR Assigned PCP 06/08/20 04/29/23 Mynor Broussard MD [address] [facility] 500 [place] [address] Assigned Surgical Provider 06/01/20 11/28/21 Keisha Dotson MD 909 [place] [address] Assigned Neuroscience Provider 06/04/20 04/01/23 Galo Burrell MD Assigned Heart and Vascular Provider 10/05/20 04/02/22 Diana Desir, [facility] 30[address] [place], [place] 822996 Pharmacist Pharmacist 04/17/21 Rain Galaviz PA-C [address] [place] [address] [place] [address] Physician Robotics Mechanic Dermatology 04/28/21 Summer Lara MD [address] [place] [address] Assigned OBGYN Provider 05/10/2105/23 Summer Lara MD [address] [place] [address] Assigned OBGYN Provider 05/31/21 2 Summer Lara MD [address] [place] [address] Assigned OBGYN Provider 05/24/2105/30 Tavia Wyatt MD [address] [place] [address] Dermatology 07/14/21 Johnny Murillo MD [address] [facility] [address] [place] [address] Assigned Musculoskeletal Provider 08/30/21 03/17/22 Erica Farrell APRN MOLDING LINE OPERATOR [address] [facility] [place] [address] [place] [address] Nurse Practitioner Cardiovascular Disease 09/09/21 Teresita Bean, [facility] [address] [place] [address] Pharmacist Pharmacist 09/24/21 09/29/21 Tavia Wyatt MD Assigned Surgical Provider 11/29/21 05/07/22 Diana Desir, [facility] 3033 [place] [address] Assigned MTM Pharmacist 01/02/22 Rich Barrett MD [address] [place] [address] Physician Ophthalmology 01/21/22 Neil Kent MD 500 [place] [address] Dermatology 02/24/22 Roney Story DPM [address] [facility] [address] [place] [address] Assigned Musculoskeletal Provider 03/20/22 08/13/22 Erica Farrell APRN MOLDING LINE OPERATOR [address] [place] [address] Assigned Heart and Vascular Provider 04/03/22 04/16/22 Diana Desir, [facility] [address] [place] [address] Assigned MTM Pharmacist 04/07/22 Jelena David OD [address] [place] [address] [place] [address] Assigned Surgical Provider 05/08/22 10/08/22 Galo Burrell MD Assigned Heart and Vascular Provider 04/17/22 06/11/22 Livan Sharif MD [address] [place] 518055 Cardiovascular Disease 05/14/22 Livan Sharif MD [address] [place] 320425 Assigned Heart and Vascular Provider 06/12/22 07/23/22 Catherine Cm MD [address] [place] [address] [place] [id number] Cardiovascular Disease 07/21/22 Valery Veronica, PA-C [address] [place] [address] 080475 Physician Robotics Mechanic Dermatology 07/21/22 Catherine Cm MD [address] [facility] [address] [place] 377635 Assigned Heart and Vascular Provider 07/24/22 11/05/22 Johnny Murillo MD [address] [place] [address] 254234 Assigned Musculoskeletal Provider 08/14/22 10/08/22 Brea Quinn APRN MOLDING LINE OPERATOR [address] [place] [address] [phone] Nurse Practitioner Dermatology 09/21/22 Brea Quinn APRN MOLDING LINE OPERATOR [address] [place] [address] [place] 948482 Assigned Surgical Provider 10/09/22 [place] [address] [place] 300 [place] [address] Assigned Musculoskeletal Provider 10/09/22 Livan Sharif MD [address], [facility] [address] [place] 112235 Assigned Heart and Vascular Provider 11/06/22 11/12/22 Catherine Cm MD [address] [place] 174985 Assigned Heart and Vascular Provider 11/13/22 05/27/23 Sydnie Martinez RN Personal Advocate & Liaison (PAL) Family Medicine 03/28/23 07/31/23 Alfonso Renteria MD 57[address] [facility] 200 [place], [place] 780706 Assigned Neuroscience Provider 04/02/23 Cheng Todd PA-C [address] [place] [address] Assigned PCP 04/30/23 07/15/23 Radha Lomeli, SKIING TEACHER MOLDING LINE OPERATOR [address] [place] [address] Assigned Heart and Vascular Provider 05/28/23 Jelena David OD [address] [facility] [place] [address] Ophthalmology 06/15/23 Pao Joseph, RN Personal Advocate & Liaison (PAL) Nurse 08/01/23 Esha Grimm PA-C [address] [place] [phone] Assigned PCP 07/16/23 Valery Veronica PA-C 9 [place] [address] Physician Robotics Mechanic Dermatology 09/19/23 Rey Tay MD [address] [place] [address] Gastroenterology 09/20/23 Rocky Zepeda DO [address] [place] [address] 771775 Physician Gastroenterology 09/20/23 Philip Dumont MD [address] [place] [address] 628245 Physician Ophthalmology 09/22/23 documented as of this encounter
--- OUTSIDE RECORDS SUMMARY | 2023-10-15 21:57 | XMS_ITS | Encounter Summary ---
Author Name Unknown Organization [facility] Address [address] [place] [address] Care Team Providers Care Bond Underwriter Name Role Phone Lita Oseguera Unavailable Unavailable aMrija Edgar APRN ADVANCED QUALITY ENGINEER Primary Care Provider U mandaailMarija Callaway APRN ADVANCED QUALITY ENGINEER Unavailable Unavail able Mynor Broussard MD Unavailable [phone] Keisha Dotson MD Unavailable [phone] Galo Burrell MD Unavailable Unavailable Diana Desir [facility] Unavailable [phone] Rain Galaviz PA-C Unavailable [phone] Summer Lara MD Unavailable [phone] Tavia Wyatt MD Unavailable Unavailable Johnny Murillo MD Unavailable Erica Farrell APRN ADVANCED QUALITY ENGINEER Unavailable Teresita Bean [facility] Unavailable Tavia Wyatt MD Unavailable Unavailable Diana Desir [facility] Unavailable [phone] Rich Barrett MD Unavailable Neil Kent MD Unavailable Roney Story DPM Unavailable [phone] StoErica pereira APRN ADVANCED QUALITY ENGINEER Unavailable + Diana Desir [facility] Unavailable Jelena David OD Unavailable Galo Burrell MD Unavailable Unavailable Livan Sharif MD Unavailable Livan Sharif MD Unavailable IsCatherine hobbs MD Unavailable + Valery Veronica PA-C Unavailable [phone] Catherine Cm MD Unavailable + Johnny Murillo MD Unavailable [phone] Brea Quinn ACCOUNT SUPPORT MANAGER ADVANCED QUALITY ENGINEER Unavailable [phone] Brea Quinn ACCOUNT SUPPORT MANAGER ADVANCED QUALITY ENGINEER Unavailable [phone] Jose Francisco Johnson MD Unavailable Livan Sharif MD Unavailable + IsCatherine hobbs MD Unavailable + Sydnie Martinez RN Unavailable Unavailable Alfonso Renteria MD Unavailable Esha Grimm PA-C Primary Care Provider Cheng Todd PA-C Unavailable Radha Lomeli ACCOUNT SUPPORT MANAGER ADVANCED QUALITY ENGINEER Unavailable [phone] Jelena David OD Unavailable [phone] Pao Joseph RN Unavailable Unavailable Esha Grimm-C Unavailable [phone] Valery Veronica PA-C Unavailable [phone] Rey Tay MD Unavailable Rocky Zepeda DO Unavailable Philip Dumont MD Unavailable [phone] Encounter Details Date Type Department Care Team (Late st Contact Info) Description 06/25/2021 MyC Medical Advice [address] [address] Diana Desir, [facility] [address] [place] [address] Psoriasis (Primary Dx) Social History Tobacco Use Types [...] often do you attend chur ch or sikhism services? More than 4 times per year [...] Answer Date Recorded PHQ-2 Score 0 04/02/2021 [facility] - Occupational [...] slept in a prison (including now)? No 08/11/2020 [place] Depression Scale Answer Date Recorded [place] Depression Score 5 01/14/2021 Last EPDS Self [...] have Coronavirus / COVID-19? No / Unsure 06/26/2021 8:28 AM ALCOHOL LAW ENFORCEMENT AGENT documented as of this encounter Miscellaneous Notes * Telephone Encounter - Diana Desir RPH - 06/26/2021 9:53 AM CST Discussed with PCP and verbal approval for betamethasone cream. Diana Desir, PharmD Medication Therapy Management Provider, [facility] Pager: [phone] HOL LAW ENFORCEMENT AGENT documented in this encounter Plan of Treatment Upcoming Encounters Date Type Department Care Team (Late st Contact Info) Description 10/25/2023 11:30 AM CDT Virtual Visit [facility] [address] 4th [place] [address] Nelly Mesa, RD [address] [place] [address] 11/03/2023 8:00 AM CDT Office Visit [address] [address] Valery Veronica, PAUcheC [address] [place] [address] 483315 11/29/2023 8:00 AM CDT Office Visit [facility] [address] [place] [address] Esha Grimm PA-C [address] [place] [address] 01/02/2024 8:00 AM CDT Office Visit [facility] [address] [place] [address] Lauren Claudio PA-C [address] [place] [address] Kelli Perez MD [address] [place] [address] documented as of this encounter Visit Diagnoses Diagnosis Psoriasis- Primary Other psoriasis documented in this encounter Additional Health Concerns Infection Onset Date Last Indicated Resolved Time Rule Out COVID-19 07/13/2021 07/13/2021 07/14/2021 3:04 PM ALCOHOL LAW ENFORCEMENT AGENT Rule Out COVID-19 07/18/2021 07/18/2021 07/20/2021 1:56 PM ALCOHOL LAW ENFORCEMENT AGENT COVID-19 07/18/2021 07/18/2021 08/08/2021 11:3 9 PM ALCOHOL LAW ENFORCEMENT AGENT Rule Out COVID-19 12/18/2021 12/18/2021 12/19/2021 11:34 AM CDT Rule Out COVID-19 02/24/2022 02/24/2022 02/25/2022 1:08 PM CDT Rule Out COVID-19 04/26/2022 04/26/2022 04/26/2022 6:47 AM CDT Rule Out COVID-19 05/17/2022 05/17/2022 05/17/2022 10:20 PM ALCOHOL LAW ENFORCEMENT AGENT Rule Out COVID-19 06/09/2022 06/09/2022 06/09/2022 9:35 AM ALCOHOL LAW ENFORCEMENT AGENT COVID-19 06/09/2022 06/09/2022 06/30/2022 11:4 1 PM ALCOHOL LAW ENFORCEMENT AGENT Rule Out COVID-19 11/10/2022 11/10/2022 11/11/2022 12:17 PM CDT Rule Out COVID-19 03/07/2023 03/07/2023 03/07/2023 1:20 PM CDT Assessment Noted Time PHQ-9 Depression Total Score: 2 04/02/20 21 10:19 AM CDT documented as of this encounter Care Teams Bond Underwriter Relationship Specialty Start Date End Date Marija Edgar APRN ADVANCED QUALITY ENGINEER PCP - General Nurse Practitioner 04/30/20 04/14/23 Esha Grimm PA-C [address] [place] [phone] PCP - General Family Medicine 05/04/23 Lita Oseguera Personal Advocate & Liaison (PAL) 02/28/20 03/27/23 Marija Edgar APRN ADVANCED QUALITY ENGINEER Assigned PCP 06/08/20 04/29/23 Mynor Broussard MD [address] [address] Assigned Surgical Provider 06/01/20 11/28/21 Keisha Dotson MD 909 [place] [address] Assigned Neuroscience Provider 06/04/20 04/01/23 Galo Burrell MD Assigned Heart and Vascular Provider 10/05/20 04/02/22 Diana Desir [facility] [address] [place], [place] [phone] Pharmacist Pharmacist 04/17/21 Rain Galaviz PA-C [address] [facility] [place] [address] Physician Vendor Specialist Dermatology 04/28/21 Summer Lara MD [address] [place] [address] Assigned OBGYN Provider 05/31/21 2 Tavia Wyatt MD [address] [place] [address] Dermatology 07/14/21 Johnny Murillo MD [address] [place] [address] Assigned Musculoskeletal Provider 08/30/21 03/17/22 Erica Farrell APRN [facility] [address] [facility] [address] [place] [address] Nurse Practitioner Cardiovascular Disease 09/09/21 Teresita Bean, [facility] [address] [facility] [place] [address] Pharmacist Pharmacist 09/24/21 09/29/21 Tavia Wyatt MD Assigned Surgical Provider 11/29/21 05/07/22 [facility] [address] [place] [address] Assigned MTM Pharmacist 01/02/22 Rich Barrett MD [address] [facility] [place] [address] Physician Ophthalmology 01/21/22 Neil Kent MD 500 [place] [address] Dermatology 02/24/22 [place] [address] [facility] [address] [place] [address] Assigned Musculoskeletal Provider 03/20/22 08/13/22 Erica Farrell APRN ADVANCED QUALITY ENGINEER 1700 [place] [address] Assigned Heart and Vascular Provider 04/03/22 04/16/22 Diana Desir, [facility] [address] [place], [place] 818556 Assigned MTM Pharmacist 04/07/22 Jelena David OD [address] [place] [address] Assigned Surgical Provider 05/08/22 10/08/22 Galo Burrell MD Assigned Heart and Vascular Provider 04/17/22 06/11/22 Livan Sharif MD [address] [place] 6166[address] Cardiovascular Disease 05/14/22 Livan Sharif MD [address] [place] 113435 Assigned Heart and Vascular Provider 06/12/22 07/23/22 Catherine Cm MD [address] [place] [address] Cardiovascular Disease 07/21/22 Valery Veronica, PAUcheC 909 [place] [address] Physician Vendor Specialist Dermatology 07/21/22 Catherine Cm MD [address] [place] [address] Assigned Heart and Vascular Provider 07/24/22 11/05/22 Johnny Murillo MD [address] [place] [address] Assigned Musculoskeletal Provider 08/14/22 10/08/22 Brea Quinn APRN ADVANCED QUALITY ENGINEER [address] [place] [address] [id number] Nurse Practitioner Dermatology 09/21/22 Brea Quinn APRN ADVANCED QUALITY ENGINEER [address] [place] [address] [place] 088152 Assigned Surgical Provider 10/09/22 [place] [address] RAZO [address] [place] [address] Assigned Musculoskeletal Provider 10/09/22 Livan Sharif MD [address] [place] [address] Assigned Heart and Vascular Provider 11/06/22 11/12/22 Catherine Cm MD [address] [place] 100[address] Assigned Heart and Vascular Provider 11/13/22 05/27/23 Sydnie Martinez RN Personal Advocate & Liaison (PAL) Family Medicine 03/28/23 07/31/23 Alfonso Renteria MD 5775 [facility] [address] [place] [address] Assigned Neuroscience Provider 04/02/23 Cheng Todd PA-C [address] [place], [place] [phone] Assigned PCP 04/30/23 07/15/23 Radha Lomeli APRN ADVANCED QUALITY ENGINEER [address] [place] [address] Assigned Heart and Vascular Provider 05/28/23 Jelena David OD [address] [place] [address] Ophthalmology 06/15/23 Pao Joseph RN Personal Advocate & Liaison (PAL) Nurse 08/01/23 Esha Grimm PA-C [address] [place] [phone] Assigned PCP 07/16/23 Valery Veronica PA-C 909 [place] [address] Physician Vendor Specialist Dermatology 09/19/23 Rey Tay MD [address] [place] [address] MD Gastroenterology 09/20/23 Rocky Zepeda DO [address] [place] [address] Physician Gastroenterology 09/20/23 Philip Dumont MD [address] [place] [address] Physician Ophthalmology 09/22/23 documented as of this encounter
--- OUTSIDE RECORDS SUMMARY | 2023-10-15 21:57 | XMS_ITS | Encounter Summary ---
Author Name Unknown Organization [facility] Address [address] [place] [address] Care Team Providers Care Anglesmith Helper Name Role Phone Lita Oseguera Unavailable Unavailable Marija Edgar APRN BEVERAGE MANAGER Primary Care Provider Chanelle Gutierrez DATA MIGRATION CONSULTANT CN Unavailab le Marija Edgar APRN BEVERAGE MANAGER Unavailable Unavail able Mynor Broussard MD Unavailable [phone] Keisha Dotson MD Unavailable Galo Burrell MD Unavailable Unavailable Diana Desir [facility] Unavailable Rain Galaviz PA-C Unavailable Summer Lara MD Unavailable [phone] Summer Lara MD Unavailable [phone] Summer Lara MD Unavailable [phone] Tavia Wyatt MD Unavailable Unavailable Johnny Murillo MD Unavailable Erica Farrell APRN BEVERAGE MANAGER Unavailable Teresita Bean [facility] Unavailable [phone] Tavia Wyatt MD Unavailable Unavailable Diana Desir [facility] Unavailable Rich Barrett MD Unavailable Neil Kent MD Unavailable Roney Story DPM Unavailable Erica Farrell DATA MIGRATION CONSULTANT BEVERAGE MANAGER Unavailable Thang Diana Colorado [facility] Unavailable Jelena David OD Unavailable [phone] Galo Burrell MD Unavailable Unavailable HoLivan MD Unavailable Livan Sharif MD Unavailable + Catherine Cm MD Unavailable + Valery Veronica PA-C Unavailable [phone] Catherine Cm MD Unavailable + Johnny Murillo MD Unavailable [phone] Brea Quinn DATA MIGRATION CONSULTANT BEVERAGE MANAGER Unavailable [phone] Brea Quinn DATA MIGRATION CONSULTANT BEVERAGE MANAGER Unavailable [phone] Jose Francisco Johnson MD Unavailable Livan Sharif MD Unavailable Catherine Cm MD Unavailable + Sydnie Martinez RN Unavailable Unavailable Alfonso Renteria MD Unavailable Esha Grimm-C Primary Care Provider Cheng Todd PA-C Unavailable Radha Lomeli DATA MIGRATION CONSULTANT BEVERAGE MANAGER Unavailable Jelena David OD Unavailable Pao Joseph RN Unavailable Unavailable Esha GrimmC Unavailable [phone] Valery Veronica PA-C Unavailable Rey Tay MD Unavailable Rocky Zepeda DO Unavailable Philip Dumont MD Unavailable [phone] Encounter Details Date Type Department Care Team (Late st Contact Info) Description 04/28/2021 [facility] Medical Advice [address] [address] Marija Edgar, ARLENE BEVERAGE MANAGER Social History Tobacco Use Types Packs/Day Years [...] How often do you attend chur or yazdanism services? More than 4 times per year 08/07/2020 Do you belong to any clubs o r organizations such as moravian groups, unions, fraternal or athletic groups, [...] Answer Date Recorded PHQ-2 Score 0 04/02/2021 [facility] - [...] a senior living (including now)? No 08/11/2020 [place] Depression Scale Answer Date Recorded [place] Depression Score 5 01/14/2021 Last EPDS Self [...] Description 10/25/2023 11:30 AM CDT Virtual Visit [facility] [address] [phone] [place] [place], RD [address] [place] [phone] 11/03/2023 8:00 AM CDT Office Visit [facility] [address] [place] [phone] Valery Veronica PA-C [address] [place] [address] 11/29/2023 8:00 AM CDT Office Visit [facility] [address] [place] [phone] Esha Grimm PA-C [address] [place] [address] 01/02/2024 8:00 AM CDT Office Visit [facility] [address] [place] [phone] Lauren Claudio PA-C [address] [place], [place] [phone] Kelli Perez MD [address] [place] [address] 793104 documented as of this encounter Visit Diagnoses Not on filedocumented in this encounter Additional Health Concerns Infection Onset Date Last Indicated Resolved Time Rule Out COVID-19 05/11/2021 05/11/2021 05/13/2021 10:18 AM CDT Rule Out COVID-19 07/13/2021 07/13/2021 07/14/2021 3:04 PM RESEARCH AFFILIATE Rule Out COVID-19 07/18/2021 07/18/2021 07/20/2021 1:56 PM RESEARCH AFFILIATE COVID-19 07/18/2021 07/18/2021 08/08/2021 11:3 9 PM RESEARCH AFFILIATE Rule Out COVID-19 12/18/2021 12/18/2021 12/19/2021 11:34 AM CDT Rule Out COVID-19 02/24/2022 02/24/2022 02/25/2022 1:08 PM CDT Rule Out COVID-19 04/26/2022 04/26/2022 04/26/2022 6:47 AM CDT Rule Out COVID-19 05/17/2022 05/17/2022 05/17/2022 10:20 PM RESEARCH AFFILIATE Rule Out COVID-19 06/09/2022 06/09/2022 06/09/2022 9:35 AM RESEARCH AFFILIATE COVID-19 06/09/2022 06/09/2022 06/30/2022 11:4 1 PM RESEARCH AFFILIATE Rule Out COVID-19 11/10/2022 11/10/2022 11/11/2022 12:17 PM CDT Rule Out COVID-19 03/07/2023 03/07/2023 03/07/2023 1:20 PM CDT Assessment Noted Time PHQ-9 Depression Total Score: 2 04/02/20 21 10:19 AM CDT documented as of this encounter Care Teams Anglesmith Helper Relationship Specialty Start Date End Date Marija Edgar APRN BEVERAGE MANAGER PCP - General Nurse Practitioner 04/30/20 04/14/23 Esha Grimm PA-C [address] [place] [phone] PCP - General Family Medicine 05/04/23 Lita Oseguera Personal Advocate & Liaison (PAL) 02/28/20 03/27/23 Chanelle Mccann APRN CNM 48769 [facility] 200 [place] [address] Assigned OBGYN Provider 05/02/2005/09 Marija Edgar APRN BEVERAGE MANAGER Assigned PCP 06/08/20 04/29/23 Mynor Broussard MD 6363 [facility] 500 [place], [place] 054485 Assigned Surgical Provider 06/01/20 11/28/21 Keisha Dotson MD 909 [place] [address] Assigned Neuroscience Provider 06/04/20 04/01/23 Galo Burrell MD Assigned Heart and Vascular Provider 10/05/20 04/02/22 Diana Desir, [facility] 3033 [place], [place] 738576 Pharmacist Pharmacist 04/17/21 Rain Galaviz PA-C [address] [place] [address] [place] [address] Physician Plastic Parts Fabricator Trimmer Dermatology 04/28/21 Summer Lara MD 606 [facility] [place] [address] Assigned OBGYN Provider 05/10/2105/23 Summer Lara MD [address] [place] [address] 221814 Assigned OBGYN Provider 05/31/21 Summer Lara MD [address] [place] [address] Assigned OBGYN Provider 05/24/2105/30 Tavia Wyatt MD [address] [place] [address] Dermatology 07/14/21 Johnny Murillo MD [address] [place] [address] Assigned Musculoskeletal Provider 08/30/21 03/17/22 Erica Farrell APRN BEVERAGE MANAGER [address] [facility] [address] [place] [address] Nurse Practitioner Cardiovascular Disease 09/09/21 Teresita Bean, [facility] [address] [place] [address] Pharmacist Pharmacist 09/24/21 09/29/21 Tavia yWatt MD Assigned Surgical Provider 11/29/21 05/07/22 Diana Desir, [facility] 3033 [place] [address] Assigned MTM Pharmacist 01/02/22 Rich Barrett MD [address] [address] Physician Ophthalmology 01/21/22 Neil Kent MD [address] [place] [address] Dermatology 02/24/22 Roney Story DPM [address] [facility] [address] [place] [address] Assigned Musculoskeletal Provider 03/20/22 08/13/22 Erica Farrell APRN BEVERAGE MANAGER [address] [place] [address] Assigned Heart and Vascular Provider 04/03/22 04/16/22 Diana Desir, [facility] [address] [place] [address] Assigned MTM Pharmacist 04/07/22 Jel[place] David OD [address] [facility] [place] [address] Assigned Surgical Provider 05/08/22 10/08/22 Galo Burrell MD Assigned Heart and Vascular Provider 04/17/22 06/11/22 Livan Sharif MD [address], [facility] [address] [place] [address] Cardiovascular Disease 05/14/22 Livan Sharif MD [address], [facility] [address] [place] [address] Assigned Heart and Vascular Provider 06/12/22 07/23/22 Catherine Cm MD [address] [facility] [address] [place] 989865 Cardiovascular Disease 07/21/22 Valery Veronica, PA[facility] [address] [place] [address] [phone] Physician Plastic Parts Fabricator Trimmer Dermatology 07/21/22 Catherine Cm MD [address] [facility] [address] [place] [phone] Assigned Heart and Vascular Provider 07/24/22 11/05/22 Johnny Murillo MD [facility] [address] 816654 Assigned Musculoskeletal Provider 08/14/22 10/08/22 Brea Quinn APRN BEVERAGE MANAGER [address] [place] [address] 205515 Nurse Practitioner Dermatology 09/21/22 Brea Quinn APRN BEVERAGE MANAGER [address] [place] [address] [place] 728172 Assigned Surgical Provider 10/09/22 [place] [address] [address] [place] [address] Assigned Musculoskeletal Provider 10/09/22 Livan Sharif MD [address], [address] [place] [address] Assigned Heart and Vascular Provider 11/06/22 11/12/22 Catherine Cm MD [address] [place] 813495 Assigned Heart and Vascular Provider 11/13/22 05/27/23 Sydnie Martinez RN Personal Advocate & Liaison (PAL) Family Medicine 03/28/23 07/31/23 Alfonso Renteria MD 5775 [facility] 200 [place], [place] 515896 Assigned Neuroscience Provider 04/02/23 Cheng Todd PA-C [address] [place] [address] Assigned PCP 04/30/23 07/15/23 Radha Lomeli APRN BEVERAGE MANAGER [address] [place] [address] Assigned Heart and Vascular Provider 05/28/23 Jelena David OD [address] [facility] [place] [address] Ophthalmology 06/15/23 Pao Joseph, VJ Personal Advocate & Liaison (PAL) Nurse 08/01/23 Esha Grimm PA-C [address] [place] [phone] Assigned PCP 07/16/23 Valery Veronica PA-C [address] [place] [address] Physician Plastic Parts Fabricator Trimmer Dermatology 09/19/23 Rey Tay MD [address] [place] [address] [phone] Gastroenterology 09/20/23 Rocky Zepeda DO [address] [place] [address] 096555 Physician Gastroenterology 09/20/23 Philip Dumont MD [address] [place] [address] [phone] Physician Ophthalmology 09/22/23 documented as of this encounter
--- OUTSIDE RECORDS SUMMARY | 2023-10-15 21:57 | XMS_ITS | Encounter Summary ---
Author Name Unknown Organization [employer] Address [address] [place] [address] Care Team Providers Care Sonography Technician Name Role Phone Lita Oseguera Unavailable Unavailable Marija Edgar APRN TRANSMITTER ENGINEER Primary Care Provider Chanelle Gutierrez CLEAT LAYER CN Unavailab le Marija Edgar APRN TRANSMITTER ENGINEER Unavailable Unavail able Mynor Broussard MD Unavailable [phone] Keisha Dotson MD Unavailable [phone] Galo Burrell MD Unavailable Unavailable Diana Desir [facility] Unavailable Rain Galaviz PA-C Unavailable Summer Lara MD Unavailable [phone] Summer Lara MD Unavailable [phone] Summer Lara MD Unavailable [phone] Tavia Wyatt MD Unavailable Unavailable Johnny Murillo MD Unavailable Erica Farrell APRN TRANSMITTER ENGINEER Unavailable Teresita Bean [facility] Unavailable Tavia Wyatt MD Unavailable Unavailable Diana Desir [facility] Unavailable Rich Barrett MD Unavailable Neil Kent MD Unavailable Roney Story DPM Unavailable Erica Farrell CLEAT LAYER TRANSMITTER ENGINEER Unavailable Thang Diana Colorado [facility] Unavailable Jelena David OD Unavailable [phone] Galo Burrell MD Unavailable Unavailable HoLivan MD Unavailable Livan Sharif MD Unavailable + Catherine Cm MD Unavailable + Valery Veronica PA-C Unavailable [phone] Catherine Cm MD Unavailable + Johnny Murillo MD Unavailable [phone] Brea Quinn CLEAT LAYER TRANSMITTER ENGINEER Unavailable [phone] Brea Quinn CLEAT LAYER TRANSMITTER ENGINEER Unavailable [phone] Jose Francisco Johnson MD Unavailable Livan Sharif MD Unavailable Catherine Cm MD Unavailable + Sydnie Martinez RN Unavailable Unavailable Alfonso Renteria MD Unavailable Esha Grimm-C Primary Care Provider Cheng Todd PA-C Unavailable Radha Lomeli CLEAT LAYER TRANSMITTER ENGINEER Unavailable Jelena David OD Unavailable Pao Joseph RN Unavailable Unavailable Esha GrimmC Unavailable [phone] Valery Veronica PA-C Unavailable Rey Tay MD Unavailable Rokcy Zepeda DO Unavailable Philip Dumont MD Unavailable [phone] Encounter Details Date Type Department Care Team (Late st Contact Info) Description 04/17/2021 [facility] Medical Advice [address] [address] Diana Desir, [facility] 3039 [place] [address] Social History Tobacco Use Types Packs/Day Years [...] week 08/07/2020 How often do you attend [facility] or religion services? More than 4 times per year 08/07/2020 Do you belong to any clubs o r organizations such as yazidi groups, unions, fraternal or athletic groups, [...] Answer Date Recorded PHQ-2 Score 0 04/02/2021 [facility] - Occupational Stress Questionnaire Answer [...] slept in a detention (including now)? No 08/11/2020 [place] Depression Scale Answer Date Recorded [place] Depression Score 5 01/14/2021 Last EPDS Self [...] [facility] [address] [phone] [place] [place], RD [address] [place] [address] 11/03/2023 8:00 AM CDT Office Visit [facility] [address] [place] [phone] Valery Veronica PA-C [address] [place] [address] [phone] 11/29/2023 8:00 AM CDT Office Visit [address] [address] Esha Grimm PA-C [address] [place] [phone] 01/02/2024 8:00 AM CDT Office Visit [facility] [address] [place] [phone] Lauren Claudio PA-C [address] [place], [place] [phone] Kelli Perez MD [address] [place] [address] documented as of this encounter Visit Diagnoses Not on filedocumented in this encounter Additional Health Concerns Infection Onset Date Last Indicated Resolved Time Rule Out COVID-19 05/11/2021 05/11/2021 05/13/2021 10:18 AM CDT Rule Out COVID-19 07/13/2021 07/13/2021 07/14/2021 3:04 PM BELLMAN DRIVER Rule Out COVID-19 07/18/2021 07/18/2021 07/20/2021 1:56 PM BELLMAN DRIVER COVID-19 07/18/2021 07/18/2021 08/08/2021 11:3 9 PM BELLMAN DRIVER Rule Out COVID-19 12/18/2021 12/18/2021 12/19/2021 11:34 AM CDT Rule Out COVID-19 02/24/2022 02/24/2022 02/25/2022 1:08 PM CDT Rule Out COVID-19 04/26/2022 04/26/2022 04/26/2022 6:47 AM CDT Rule Out COVID-19 05/17/2022 05/17/2022 05/17/2022 10:20 PM BELLMAN DRIVER Rule Out COVID-19 06/09/2022 06/09/2022 06/09/2022 9:35 AM BELLMAN DRIVER COVID-19 06/09/2022 06/09/2022 06/30/2022 11:4 1 PM BELLMAN DRIVER Rule Out COVID-19 11/10/2022 11/10/2022 11/11/2022 12:17 PM CDT Rule Out COVID-19 03/07/2023 03/07/2023 03/07/2023 1:20 PM CDT Assessment Noted Time PHQ-9 Depression Total Score: 2 04/02/20 10:19 AM CDT documented as of this encounter Care Teams Sonography Technician Relationship Specialty Start Date End Date Marija Edgar APRN TRANSMITTER ENGINEER PCP - General Nurse Practitioner 04/30/20 04/14/23 Esah Grimm PA-C [address] [place] [phone] PCP - General Family Medicine 05/04/23 Lita Oseguera Personal Advocate & Liaison (PAL) 02/28/20 03/27/23 Chanelle Mccann APRN CNAdam [address] [place] [address] 200 [place] [address] Assigned OBGYN Provider 05/02/2005/09 Marija Edgar APRN TRANSMITTER ENGINEER Assigned PCP 06/08/20 04/29/23 Mynor Broussard MD 6363 [facility] 500 [place], [place] 884365 Assigned Surgical Provider 06/01/20 11/28/21 Keisha Dotson MD 909 [place], [place] 742215 Assigned Neuroscience Provider 06/04/20 04/01/23 Galo Burrell MD Assigned Heart and Vascular Provider 10/05/20 04/02/[address] [facility] 30[address] [facility] [place] [address] Pharmacist Pharmacist 04/17/21 Rain Galaviz PA-C [address] [place] [address] [place] [address] Physician Wastewater Treatment Plant Attendant Dermatology 04/28/21 Summer Lara MD [address] [place] [address] Assigned OBGYN Provider 05/10/2105/23 Summer Lara MD [address] [place] [address] [place] [address] Assigned OBGYN Provider 05/31/21 2 Summer Lara MD [address] [place] [address] Assigned OBGYN Provider 05/24/2105/30 Tavia Wyatt MD [address] [place] [address] Dermatology 07/14/21 Johnny Murillo MD [facility] S [facility] [address] [place] [address] Assigned Musculoskeletal Provider 08/30/21 03/17/22 Erica Farrell APRN TRANSMITTER ENGINEER 6[address] [facility] [address] [place] [address] Nurse Practitioner Cardiovascular Disease 09/09/21 Teresita Bean, [facility] [address] [place] [address] Pharmacist Pharmacist 09/24/21 09/29/21 Tavia Wyatt MD Assigned Surgical Provider 11/29/21 05/07/22 Diana Desir, [facility] 3033 [place] [address] Assigned MTM Pharmacist 01/02/22 Rich Barrett MD [address] [address] Physician Ophthalmology 01/21/22 Neil Kent MD 500 [place] [address] Dermatology 02/24/22 Roney Story DPM [address] [facility] 300 [place] [address] Assigned Musculoskeletal Provider 03/20/22 08/13/22 Erica Farrell APRN TRANSMITTER ENGINEER 1700 [place] [address] Assigned Heart and Vascular Provider 04/03/22 04/16/22 Diana Desir, [facility] 3033 [place] [address] Assigned MTM Pharmacist 04/07/22 Jelena David OD [address] [place] [address] Assigned Surgical Provider 05/08/22 10/08/22 Galo Burrell MD Assigned Heart and Vascular Provider 04/17/22 06/11/22 Livan Sharif MD [address] [place] [address] Cardiovascular Disease 05/14/22 Livan Sharif MD [address] [place] [address] Assigned Heart and Vascular Provider 06/12/22 07/23/22 Catherine Cm MD [address] [place] [address] Cardiovascular Disease 07/21/22 Valery Veronica, PA-C [address] [place] [address] 689045 Physician Wastewater Treatment Plant Attendant Dermatology 07/21/22 Catherine Cm MD [address] [place] 826735 Assigned Heart and Vascular Provider 07/24/22 11/05/22 Johnny Murillo MD [facility] 647794 Assigned Musculoskeletal Provider 08/14/22 10/08/22 Brea Quinn APRN TRANSMITTER ENGINEER [address] [place] [address] 257925 Nurse Practitioner Dermatology 09/21/22 Brea Quinn APRN TRANSMITTER ENGINEER 6401 [facility] [place] [address] Assigned Surgical Provider 10/09/22 [place] [address] [place] [address] Assigned Musculoskeletal Provider 10/09/22 Livan Sharif MD [address] [place], [place] 721825 Assigned Heart and Vascular Provider 11/06/22 11/12/22 Catherine Cm MD [address] [place] 16[address]15 Assigned Heart and Vascular Provider 11/13/22 05/27/23 Sydnie Martinez, VJ Personal Advocate & Liaison (PAL) Family Medicine 03/28/23 07/31/23 Alfonso Renteria MD 5775 [facility] 200 [place] [address] Assigned Neuroscience Provider 04/02/23 Cheng Todd PA-C [address] [place] [address] Assigned PCP 04/30/23 07/15/23 Radha Lomeli APRN TRANSMITTER ENGINEER [address] [place] [address] Assigned Heart and Vascular Provider 05/28/23 Jelena David OD [address] [place] [address] Ophthalmology 06/15/23 Pao Joseph, RN Personal Advocate & Liaison (PAL) Nurse 08/01/23 Esha Grimm PA-C [address] [place] [address] Assigned PCP 07/16/23 Valery Veronica PA-C 909 [place] [address] Physician Wastewater Treatment Plant Attendant Dermatology 09/19/23 Rey Tay MD [address] [place] [address] Gastroenterology 09/20/23 Rocky Zepeda DO [address] [place] [address] Physician Gastroenterology 09/20/23 Philip Dumont MD [address] [place] [address] 808015 Physician Ophthalmology 09/22/23 documented as of this encounter
--- OUTSIDE RECORDS SUMMARY | 2023-10-15 21:57 | XMS_ITS | Encounter Summary ---
Author Name Unknown Organization [facility] Address [address] [place] [address] Care Team Providers Care Concrete Float Maker Name Role Phone Lita Oseguera Unavailable Unavailable Marija Edgar APRN HOT DIPPER Primary Care Provider U mandaailMarija Callaway APRN HOT DIPPER Unavailable Unavail able Mynor Broussard MD Unavailable [phone] Keisha Dotson MD Unavailable Galo Burrell MD Unavailable Unavailable Diana Desir [facility] Unavailable [phone] Rain Galaviz PA-C Unavailable Summer Lara MD Unavailable [phone] Tavia Wyatt MD Unavailable Unavailable Johnny Murillo MD Unavailable [phone] Erica Farrell APRN HOT DIPPER Unavailable Teresita Bean [facility] Unavailable Tavia Wyatt MD Unavailable Unavailable Diana Desir [facility] Unavailable [phone] iRch Barrett MD Unavailable Neil Kent MD Unavailable Roney Story DPM Unavailable [phone] StoErica pereira APRN HOT DIPPER Unavailable + Diana Desir [facility] Unavailable Jelena David OD Unavailable Galo Burrell MD Unavailable Unavailable Livan hSarif MD Unavailable Livan Sharif MD Unavailable IsCatherine hobbs MD Unavailable + Valery Veronica PA-C Unavailable [phone] Catherine Cm MD Unavailable + Johnny Murillo MD Unavailable [phone] Brea Quinn SOCK MENDER HOT DIPPER Unavailable [phone] Brea Quinn SOCK MENDER HOT DIPPER Unavailable [phone] Jose Francisco Johnson MD Unavailable Livan Sharif MD Unavailable + IsCatherine hobbs MD Unavailable + Sydnie Martinez RN Unavailable Unavailable Alfonso Renteria MD Unavailable Esha Grimm PA-C Primary Care Provider Cheng Todd PA-C Unavailable Radha Lomeli SOCK MENDER HOT DIPPER Unavailable [phone] Jelena David OD Unavailable [phone] Pao Joseph RN Unavailable Unavailable Esha Grimm-C Unavailable Valery Veronica PA-C Unavailable [phone] Rey Tay MD Unavailable Rocky Zepeda DO Unavailable Philip Dumont MD Unavailable [phone] Encounter Details Date Type Department Care Team (Late st Contact Info) Description 07/14/2021 My[facility] Medical Advice [address] [address] Lauren Gan RN Social History Tobacco Use Types Packs/Day [...] week 08/07/2020 How often do you attend [facility] or [facility] services? More than 4 times per year [...] Answer Date Recorded PHQ-2 Score 0 04/02/2021 [facility] - Occupational Stress Questionnaire [...] a care home (including now)? No 08/11/2020 [place] Depression Scale Answer Date Recorded [place] Depression Score 5 01/14/2021 Last EPDS Self [...] or suspected to have Coronavirus / COVID-19? Yes 07/15/2021 12:15 PM LOG CHAIN WORKER documented as of this encounter Plan of Treatment Upcoming Encounters Date Type Department Care Team (Late st Contact Info) Description 10/25/2023 11:30 AM CDT Virtual Visit [facility] [address] [place] [address] Nelly Mesa, RD [address] [place] [address] 11/03/2023 8:00 AM CDT Office Visit [address] [phone] Valery Veronica PA-C [address] [place] [address] 11/29/2023 8:00 AM CDT Office Visit [facility] [id number] [place] [address] Esha Grimm PA-C [address] [place] [address] 01/02/2024 8:00 AM CDT Office Visit [facility] [address] [place] [phone] Lauren Claudio PA-C [address] [place] [address] Kelli Perez MD [address] [place] [address] documented as of this encounter Visit Diagnoses Not on filedocumented in this encounter Additional Health Concerns Infection Onset Date Last Indicated Resolved Time Rule Out COVID-19 07/13/2021 07/13/2021 07/14/2021 3:04 PM LOG CHAIN WORKER Rule Out COVID-19 07/18/2021 07/18/2021 07/20/2021 1:56 PM LOG CHAIN WORKER COVID-19 07/18/2021 07/18/2021 08/08/2021 11:3 9 PM LOG CHAIN WORKER Rule Out COVID-19 12/18/2021 12/18/2021 12/19/2021 11:34 AM CDT Rule Out COVID-19 02/24/2022 02/24/2022 02/25/2022 1:08 PM CDT Rule Out COVID-19 04/26/2022 04/26/2022 04/26/2022 6:47 AM CDT Rule Out COVID-19 05/17/2022 05/17/2022 05/17/2022 10:20 PM LOG CHAIN WORKER Rule Out COVID-19 06/09/2022 06/09/2022 06/09/2022 9:35 AM LOG CHAIN WORKER COVID-19 06/09/2022 06/09/2022 06/30/2022 11:4 1 PM LOG CHAIN WORKER Rule Out COVID-19 11/10/2022 11/10/2022 11/11/2022 12:17 PM CDT Rule Out COVID-19 03/07/2023 03/07/2023 03/07/2023 1:20 PM CDT Assessment Noted Time PHQ-9 Depression Total Score: 2 04/02/20 10:19 AM CDT documented as of this encounter Care Teams Concrete Float Maker Relationship Specialty Start Date End Date Marija Edgar APRN HOT DIPPER PCP - General Nurse Practitioner 04/30/20 04/14/23 Esha Grimm PA-C [address] [place] [phone] PCP - General Family Medicine 05/04/23 Lita Oseguera Personal Advocate & Liaison (PAL) 02/28/20 03/27/23 Marija Edgar APRN HOT DIPPER Assigned PCP 06/08/20 04/29/23 Mynor Broussard MD [address] [facility] 500 [place] [address] Assigned Surgical Provider 06/01/20 11/28/21 Keisha Dotson MD 909 [place], [place] 864745 Assigned Neuroscience Provider 06/04/20 04/01/23 Galo Burrell MD Assigned Heart and Vascular Provider 10/05/20 04/02/22 [facility] 3033 [place] [address] Pharmacist Pharmacist 04/17/21 Rain Galaviz PA-C [address] [place] [address] [address] [place] [address] Physician Dentist Dermatology 04/28/21 Summer Lara MD [address] [place] [address] Assigned OBGYN Provider 05/31/21 2 Tavia Wyatt MD [address] [place] [address] Dermatology 07/14/21 Johnny Murillo MD [address] [place] [address] Assigned Musculoskeletal Provider 08/30/21 03/17/22 Erica Farrell APRN HOT DIPPER 6405 [facility] [address] [place] [address] Nurse Practitioner Cardiovascular Disease 09/09/21 Teresita Bean, [facility] [address] [place], [place] [phone] Pharmacist Pharmacist 09/24/21 09/29/21 Tavia Wyatt MD Assigned Surgical Provider 11/29/21 05/07/22 [facility] 3033 [place] [address] Assigned MTM Pharmacist 01/02/22 Rich Barrett MD 516 [facility] 9A [place], [place] [address] Physician Ophthalmology 01/21/22 Neil Kent MD 500 [place] [address] Dermatology 02/24/[address] [facility] 300 [place] [address] Assigned Musculoskeletal Provider 03/20/22 08/13/22 Erica Farrell APRN HOT DIPPER 1700 [place] [address] Assigned Heart and Vascular Provider 04/03/22 04/16/22 Diana Desir, [facility] 3033 [place] [address] Assigned MTM Pharmacist 04/07/22 Jelena David OD [address] [place] [address] Assigned Surgical Provider 05/08/22 10/08/22 Galo Burrell MD Assigned Heart and Vascular Provider 04/17/22 06/11/22 Livan Sharif MD [address] [place] [address] Cardiovascular Disease 05/14/22 Livan Sharif MD [address] [place] [address] Assigned Heart and Vascular Provider 06/12/22 07/23/22 Catherine Cm MD [address] [place] [address] Cardiovascular Disease 07/21/22 Valery Veronica PA-C 909 [place], [place] 3945[address] Physician Dentist Dermatology 07/21/22 Catherine Cm MD [address] [place] [id number] Assigned Heart and Vascular Provider 07/24/22 11/05/22 Johnny Murillo MD [facility] [address] [address] Assigned Musculoskeletal Provider 08/14/22 10/08/22 Brea Quinn APRN HOT DIPPER 500 [place] [address] Nurse Practitioner Dermatology 09/21/22 Brea Quinn APRN HOT DIPPER 6401 [place] [address] Assigned Surgical Provider 10/09/22 [place] [address] [address] Assigned Musculoskeletal Provider 10/09/22 Livan Sharif MD 6405 [facility] [address] [place] [address] Assigned Heart and Vascular Provider 11/06/22 11/12/22 Catherine Cm MD 6405 [facility] [address] [place], [place] 568445 Assigned Heart and Vascular Provider 11/13/22 05/27/23 Sydnie Martinez RN Personal Advocate & Liaison (PAL) Family Medicine 03/28/23 07/31/23 Alfonso Renteria MD [address] [facility] 200 [place], [place] 346546 Assigned Neuroscience Provider 04/02/23 Cheng Todd PA-C [address] [place], [place] [id number] Assigned PCP 04/30/23 07/15/23 Radha Lomeli APRN HOT DIPPER 6405 [facility] [address] [place], [place] 888095 Assigned Heart and Vascular Provider 05/28/23 Jelena David OD [address] [facility] [address] [place] [phone] Ophthalmology 06/15/23 Pao Joseph, VJ Personal Advocate & Liaison (PAL) Nurse 08/01/23 Esha Grimm PA-C [address] [place] [phone] Assigned PCP 07/16/23 Valery Veronica PA-C [address] [place] [address]265 Physician Dentist Dermatology 09/19/23 Rey Tay MD [address] [place] [address] MD Gastroenterology 09/20/23 Rocky Zepeda DO [address] [place] [address] [id number] Physician Gastroenterology 09/20/23 Philip Dumont MD [address] [place] [address] Physician Ophthalmology 09/22/23 documented as of this encounter
--- OUTSIDE RECORDS SUMMARY | 2023-10-15 21:58 | XMS_ITS | Encounter Summary ---
Author Name Unknown Organization [facility] Address [address] [place] [address] Care Team Providers Care Explosive Man Name Role Phone Lita Oseguera Unavailable Unavailable Marija Edgar APRN RESPIRATORY THERAPY ASSISTANT Primary Care Provider Chanelle Gutierrez CLAIMS AGENT RIGHT OF WAY CNM Unavailab le Kyara De La Fuente RN Unavailable [phone] Marija Edgar APRN RESPIRATORY THERAPY ASSISTANT Unavailable Unavail able Mynor Broussard MD Unavailable [phone] Keisha Dotson MD Unavailable Galo Burrell MD Unavailable Unavailable Cristina Wood Unavailable Diana Desir [facility] Unavailable Rain Galaviz PA-C Unavailable Summer Lara MD Unavailable [phone] Summer Lara MD Unavailable [phone] Summer Lara MD Unavailable [phone] Tavia Wyatt MD Unavailable Unavailable Johnny Murillo MD Unavailable Erica Farrell APRN RESPIRATORY THERAPY ASSISTANT Unavailable Teresita Bean [facility] Unavailable Tavia Wyatt MD Unavailable Unavailable Diana Desir [facility] Unavailable [phone] Rich Barrett MD Unavailable Neil Kent MD Unavailable Roney Story DPM Unavailable [phone] Erica Farrell CLAIMS AGENT RIGHT OF WAY RESPIRATORY THERAPY ASSISTANT Unavailable + Desir Diana [place] [facility] Unavailable [phone] Jelena David OD Unavailable Galo Burrell MD Unavailable Unavailable Livan Sharif MD Unavailable + Livan Sharif MD Unavailable + Catherine Cm MD Unavailable + Valery Veronica PA-C Unavailable [phone] Catherine Cm MD Unavailable + Johnny Murillo MD Unavailable [phone] Brea Quinn CLAIMS AGENT RIGHT OF WAY RESPIRATORY THERAPY ASSISTANT Unavailable [phone] Brea Quinn CLAIMS AGENT RIGHT OF WAY RESPIRATORY THERAPY ASSISTANT Unavailable [phone] Jose Francisco Johnson MD Unavailable Livan Sharif MD Unavailable + Catherine Cm MD Unavailable + Sydnie Martinez RN Unavailable Unavailable Alfonso Renteria MD Unavailable [phone] Esha Grimm PA-C Primary Care Provider [phone] Cheng Todd PA-C Unavailable [phone] Radha Lomeli CLAIMS AGENT RIGHT OF WAY RESPIRATORY THERAPY ASSISTANT Unavailable [phone] Jelena David OD Unavailable Pao Joseph RN Unavailable Unavailable Esha Grimm PA-C Unavailable [phone] Valery Veronica PA-C Unavailable [phone] Rey Tay MD Unavailable ZepedaRocky Unavailable Philip Dumont MD Unavailable [phone] Encounter Details Date Type Department Care Team (Late st Contact Info) Description 02/06/2021 [facility] Medical Advice [address] [address] Bob Diop Social History Tobacco Use Types [...] How often do you attend chur or zoroastrian services? More than 4 times per year [...] 08/07/2020 PHQ-2 Answer Date Recorded PHQ-2 Score 3 09/29/2020 [facility] - Occupational Stress Questionnaire Answer Date [...] in a senior care (including now)? No 08/11/2020 [place] Depression Scale Answer Date Recorded [place] Depression Score 5 01/14/2021 Last EPDS Self [...] have Coronavirus / COVID-19? No / Unsure 01/18/2021 12:52 PM CDT documented as of this encounter Plan of Treatment Upcoming Encounters Date Type Department Care Team (Late st Contact Info) Description 10/25/2023 11:30 AM CDT Virtual Visit [facility] [address] [phone] [address], RD [address] [place] [address] 11/03/2023 8:00 AM CDT Office Visit [address] [phone] Valery Veronica PA-C [address] [place] [address] 624835 11/29/2023 8:00 AM CDT Office Visit [address] [address] Esha Grimm PA-C [address] [place] [address] 01/02/2024 8:00 AM CDT Office Visit [facility] [address] [place] [phone] Lauren Claudio PA-C [address] [place], [place] [phone] Kelli Perez MD [address] [place] [address] documented as of this encounter Visit Diagnoses Not on filedocumented in this encounter Additional Health Concerns Infection Onset Date Last Indicated Resolved Time Rule Out COVID-19 05/11/2021 05/11/2021 05/13/2021 10:18 AM CDT Rule Out COVID-19 07/13/2021 07/13/2021 07/14/2021 3:04 PM CMS EXPERT Rule Out COVID-19 07/18/2021 07/18/2021 07/20/2021 1:56 PM CMS EXPERT COVID-19 07/18/2021 07/18/2021 08/08/2021 11:3 9 PM CMS EXPERT Rule Out COVID-19 12/18/2021 12/18/2021 12/19/2021 11:34 AM CDT Rule Out COVID-19 02/24/2022 02/24/2022 02/25/2022 1:08 PM CDT Rule Out COVID-19 04/26/2022 04/26/2022 04/26/2022 6:47 AM CDT Rule Out COVID-19 05/17/2022 05/17/2022 05/17/2022 10:20 PM CMS EXPERT Rule Out COVID-19 06/09/2022 06/09/2022 06/09/2022 9:35 AM CMS EXPERT COVID-19 06/09/2022 06/09/2022 06/30/2022 11:4 1 PM CMS EXPERT Rule Out COVID-19 11/10/2022 11/10/2022 11/11/2022 12:17 PM CDT Rule Out COVID-19 03/07/2023 03/07/2023 03/07/2023 1:20 PM CDT Assessment Noted Time PHQ-9 Depression Total Score: 6 09/30/19 3:25 PM CDT documented as of this encounter Care Teams Explosive Man Relationship Specialty Start Date End Date Marija Edgar APRN RESPIRATORY THERAPY ASSISTANT PCP - General Nurse Practitioner 04/30/20 04/14/23 Esha Grimm PA-C [address] [place] [phone] PCP - General Family Medicine 05/04/23 Lita Oseguera Personal Advocate & Liaison (PAL) 02/28/20 03/27/23 Chanelle Mccann APRN CNAdam [address] [place] [address] 200 [place] [address] Assigned OBGYN Provider 05/02/2005/09 Kyara De La Fuente, RN Specialty Reimbursement Specialist Neurology 06/04/20 03/05/21 Marija Edgar APRN RESPIRATORY THERAPY ASSISTANT Assigned PCP 06/08/20 04/29/23 Mynor Broussard MD [address] [facility] 500 [place] [address] Assigned Surgical Provider 06/01/20 11/28/21 Keisha Dotson MD 909 [place], [place] 600055 Assigned Neuroscience Provider 06/04/20 04/01/23 Galo Burrell MD Assigned Heart and Vascular Provider 10/05/20 04/02/22 Cristina Wood Financial Resource Worker 02/09/21 02/09/21 Diana Desir, [facility] [address] [place] [address] Pharmacist Pharmacist 04/17/21 Rain Galaviz PA-C [address] [place] [address] [address] [place] [address] Physician Product Tester Fiberglass Dermatology 04/28/21 Summer Lara MD [address] [place] [address] Assigned OBGYN Provider 05/10/2105/23 Summer Lara MD [address] [place], [place] 149994 Assigned OBGYN Provider 05/31/21 Summer Lara MD [address] [place] [address] Assigned OBGYN Provider 05/24/2105/30 Tavia Wyatt MD [address] [address] Dermatology 07/14/21 Johnny Murillo MD [address] [place] [address] Assigned Musculoskeletal Provider 08/30/21 03/17/22 Erica Farrell APRN RESPIRATORY THERAPY ASSISTANT 6405 [facility] [address] [place] [address] Nurse Practitioner Cardiovascular Disease 09/09/21 Teresita Bean [facility] [address] [place] [address] Pharmacist Pharmacist 09/24/21 09/29/21 Tavia Wyatt MD Assigned Surgical Provider 11/29/21 05/07/22 Diana Desir, [facility] 3033 [place] [address] Assigned MTM Pharmacist 01/02/22 Rich Barrett MD [address] [address]48[address] Physician Ophthalmology 01/21/22 Neil Kent MD 500 [place], [place] 09[address]95 Dermatology 02/24/22 Roney Story DPM [address] [facility] 300 [place] [address] Assigned Musculoskeletal Provider 03/20/22 08/13/22 Erica Farrell APRN RESPIRATORY THERAPY ASSISTANT [address] [place] [address] Assigned Heart and Vascular Provider 04/03/22 04/16/22 Diana Desir, [facility] [address] [place] [address] Assigned MTM Pharmacist 04/07/22 Frankie Jelena TempletonSONJA woods [address] [facility] [place] [address] Assigned Surgical Provider 05/08/22 10/08/22 Galo Burrell MD Assigned Heart and Vascular Provider 04/17/22 06/11/22 Livan Sharif MD [address] [place] [address] Cardiovascular Disease 05/14/22 Livan Sharif MD [address] [place] [address] Assigned Heart and Vascular Provider 06/12/22 07/23/22 Catherine Cm MD [address] [place] [address] Cardiovascular Disease 07/21/22 Valery Veronica, PA-C [address] [place] [address] Physician Product Tester Fiberglass Dermatology 07/21/22 Catherine Cm MD [address] [place] [address] Assigned Heart and Vascular Provider 07/24/22 11/05/22 Johnny Murillo MD [address] 0630[address] Assigned Musculoskeletal Provider 08/14/22 10/08/22 Brea Quinn APRN RESPIRATORY THERAPY ASSISTANT 500 [place] [address] Nurse Practitioner Dermatology 09/21/22 Brea Quinn APRN RESPIRATORY THERAPY ASSISTANT 6401 [place] [address] Assigned Surgical Provider 10/09/22 [place] [address] [address] [facility] 300 [place] [address] Assigned Musculoskeletal Provider 10/09/22 Livan Sharif MD [address], [facility] [address] [place] [address]295 Assigned Heart and Vascular Provider 11/06/22 11/12/22 Catherine Cm MD [address] [place] 14[address]35 Assigned Heart and Vascular Provider 11/13/22 05/27/23 Sydnie Martinez, VJ Personal Advocate & Liaison (PAL) Family Medicine 03/28/23 07/31/23 Alfonso Renteria MD 5775 [facility] 200 [place] [address] Assigned Neuroscience Provider 04/02/23 Cheng Todd PA-C [address] [place] [address] Assigned PCP 04/30/23 07/15/23 Radha Lomeli APRN RESPIRATORY THERAPY ASSISTANT [address] [place] [address] Assigned Heart and Vascular Provider 05/28/23 Jelena David OD [address] [facility] [place] [address] Ophthalmology 06/15/23 Pao oJseph, RN Personal Advocate & Liaison (PAL) Nurse 08/01/23 Esha Grimm PAUcheC [address] [place] [phone] Assigned PCP 07/16/23 Valery Veronica PA-C [address] [place], [place] 490265 Physician Product Tester Fiberglass Dermatology 09/19/23 Rey Tay MD [address] [place] [address] Gastroenterology 09/20/23 Rocky Zepeda DO [address] [place] [address] 752035 Physician Gastroenterology 09/20/23 Philip Dumont MD [address] [place] [address] Physician Ophthalmology 09/22/23 documented as of this encounter
--- OUTSIDE RECORDS SUMMARY | 2023-10-15 21:58 | XMS_ITS | Encounter Summary ---
Author Name Unknown Organization [place] Address [address] [place] [address] Care Team Providers Care Stoker Installer Name Role Phone Lita Oseguera Unavailable Unavailable Marija Edgar APRN LACQUER SHADER Primary Care Provider Chanelle Gutierrez SOFTWARE SALES EXECUTIVE CNM Unavailab le Kyara De La Fuente RN Unavailable [phone] Marija Edgar APRN LACQUER SHADER Unavailable Unavail able Mynor Broussard MD Unavailable [phone] Keisha Dotson MD Unavailable [phone] Galo Burrell MD Unavailable Unavailable Cristina Wood Unavailable Diana Desir [facility] Unavailable Rain Galaviz PA-C Unavailable [phone] Summer Lara MD Unavailable [phone] Summer Lara MD Unavailable [phone] Summer Lara MD Unavailable [phone] Tavia Wyatt MD Unavailable Unavailable Johnny Murillo MD Unavailable Erica Farrell APRN LACQUER SHADER Unavailable Teresita Bean [facility] Unavailable [phone] Tavia Wyatt MD Unavailable Unavailable Diana Desir [facility] Unavailable [phone] Rich Barrett MD Unavailable Neil Kent MD Unavailable Roney Story DPM Unavailable [phone] Erica Farrell SOFTWARE SALES EXECUTIVE LACQUER SHADER Unavailable + Desir Diana Colorado [facility] Unavailable [phone] Jelena David OD Unavailable Galo Burrell MD Unavailable Unavailable Livan Sharif MD Unavailable + Livan Sharif MD Unavailable + Catherine Cm MD Unavailable + Valery Veronica PA-C Unavailable [phone] Catherine Cm MD Unavailable + Johnny Murillo MD Unavailable [phone] Brea Quinn SOFTWARE SALES EXECUTIVE LACQUER SHADER Unavailable [phone] Brea Quinn SOFTWARE SALES EXECUTIVE LACQUER SHADER Unavailable [phone] Jose Francisco Johnson MD Unavailable Livan Sharif MD Unavailable + Catherine Cm MD Unavailable + Sydnie Martinez RN Unavailable Unavailable Alfonso Renteria MD Unavailable [phone] Esha Grimm PA-C Primary Care Provider [phone] Cheng Todd PA-C Unavailable [phone] Radha Lomeli SOFTWARE SALES EXECUTIVE LACQUER SHADER Unavailable [phone] Jelena David OD Unavailable Pao Joseph RN Unavailable Unavailable Esha Grimm PA-C Unavailable [phone] Valery Veronica PA-C Unavailable [phone] Rey Tay MD Unavailable ZepedaRocky Unavailable Philip Dumont MD Unavailable [phone] Encounter Details Date Type Department Care Team (Late st Contact Info) Description 01/06/2021 Orders Only [facility] - Surgical Specialties Service Line [facility] [place] [address] Saurabh Marcial MD 6372 [facility] 200 [place], [place] [phone] Indication for care in labor and delivery, antepartum (Primary Dx) Social History Tobacco Use Types [...] often do you attend chur ch or shinto services? More than 4 times per year [...] Answer Date Recorded PHQ-2 Score 3 09/29/2020 [facility] - Occupational [...] slept in a jail (including now)? No 08/11/2020 Education Answer Date Recorded What is the highest level of school you have completed or the highest degree you have received? 12th grade 08/07/2020 Comments Yes Sex and Gender Information Value Date Recorded Sex Assigned at Female 03/02/2021 5:45 PM CDT Gender Identity Female 03/02/2021 5:45 PM CDT Sexual Orientation Straight 02/28/2020 12 :51 AM CDT COVID-19 Exposure Response Date Recorded In the last month, have you been in contact with someone who was confirmed or suspected to have Coronavirus / COVID-19? No / Unsure 12/27/2020 1:22 PM CDT documented as of this encounter Plan of Treatment Upcoming Encounters Date Type Department Care Team (Late st Contact Info) Description 10/25/2023 11:30 AM CDT Virtual Visit [facility] [address] [place] [phone] [address], [address] [place] [address] 11/03/2023 8:00 AM CDT Office Visit [address] [address] Valery Veronica, PAUcheC [address] [place] [address] 11/29/2023 8:00 AM CDT Office Visit [address] [phone] Esha Grimm PA-C [address] [place] [address] 01/02/2024 8:00 AM CDT Office Visit [facility] [address] [place] [address] Lauren Claudio PA-C [address] [place], [place] [phone] Kelli Perez MD [address] [address] documented as of this encounter Results * Asymptomatic COVID-19 Virus (Coronavirus) by PCR (01/09/2021 10:44 AM CDT) COVID-19 Virus PCR to [facility] - Source Nasopharyngeal 01/09/2021 10:45 AM CDT [facility] COVID-19 Virus PCR to [facility] - Result Test received-See reflex to IDDL test SARS CoV2 (COVID-19) Virus RT-PCR 01/09/2021 6:32 PM CDT [facility], [facility] Specimen from nasopharyngeal structure (specimen) 01/09/2021 10:44 AM CDT 01/09/2021 10:45 AM CDT Saurabh Marcial MD LAB - MICRO GENE RAL ORDERABLES INFECTIOUS DISEASES [facility], [facility] [address] [place] [address], [facility] [address] [place] [address], [facility] [phone] documented in this encounter Visit Diagnoses Diagnosis Indication for care in labor and delivery, antepartum- Primary Unspecified indication for care or intervention related to labor and delivery, antepartum documented in this encounter Additional Health Concerns Infection Onset Date Last Indicated Resolved Time Rule Out COVID-19 05/11/2021 05/11/2021 05/13/2021 10:18 AM CDT Rule Out COVID-19 07/13/2021 07/13/2021 07/14/2021 3:04 PM DIESEL TECHNICIAN Rule Out COVID-19 07/18/2021 07/18/2021 07/20/2021 1:56 PM DIESEL TECHNICIAN COVID-19 07/18/2021 07/18/2021 08/08/2021 11:3 9 PM DIESEL TECHNICIAN Rule Out COVID-19 12/18/2021 12/18/2021 12/19/2021 11:34 AM CDT Rule Out COVID-19 02/24/2022 02/24/2022 02/25/2022 1:08 PM CDT Rule Out COVID-19 04/26/2022 04/26/2022 04/26/2022 6:47 AM CDT Rule Out COVID-19 05/17/2022 05/17/2022 05/17/2022 10:20 PM DIESEL TECHNICIAN Rule Out COVID-19 06/09/2022 06/09/2022 06/09/2022 9:35 AM DIESEL TECHNICIAN COVID-19 06/09/2022 06/09/2022 06/30/2022 11:4 1 PM DIESEL TECHNICIAN Rule Out COVID-19 11/10/2022 11/10/2022 11/11/2022 12:17 PM CDT Rule Out COVID-19 03/07/2023 03/07/2023 03/07/2023 1:20 PM CDT Assessment Noted Time PHQ-9 Depression Total Score: 6 09/30/19 3:25 PM CDT documented as of this encounter Care Teams Stoker Installer Relationship Specialty Start Date End Date Marija Edgar APRN CNP PCP - General Nurse Practitioner 04/30/20 04/14/23 Esha Grimm PA-C [address] [place] [address] PCP - General Family Medicine 05/04/23 Lita Oseguera Personal Advocate & Liaison (PAL) 02/28/20 03/27/23 Chanelle Mccann APRN CNM 58387 [facility] 200 [place] [address] Assigned OBGYN Provider 05/02/2005/09 Kyara De La Fuente, RN Specialty Harness And Bag Inspector Neurology 06/04/20 03/05/21 Marija Edgar APRN LACQUER SHADER Assigned PCP 06/08/20 04/29/23 Mynor Broussard MD 6363 [facility] 500 [place] [address] Assigned Surgical Provider 06/01/20 11/28/21 Keisha Dotson MD [address] [place] [address] Assigned Neuroscience Provider 06/04/20 04/01/23 Galo Burrell MD Assigned Heart and Vascular Provider 10/05/20 04/02/22 Cristina Wood Financial Resource Worker 02/09/21 02/09/21 Diana Desir, [facility] [address] [place] [address] Pharmacist Pharmacist 04/17/21 Rain Galaviz PA-C [address] [place] [address] [address] [place] [address] Physician Cnc Manufacturing Engineer Dermatology 04/28/21 Summer Lara MD 606 [address] [address] Assigned OBGYN Provider 05/10/2105/23 Summer Lara MD [address] [place] [address] Assigned OBGYN Provider 05/31/21 2 Summer Lara MD [address] [place] [address] Assigned OBGYN Provider 05/24/2105/30 Tavia Wyatt MD [address] [place] [address] [facility] 07/14/21 Johnny Murillo MD [address] [place] [address] Assigned Musculoskeletal Provider 08/30/21 03/17/22 Erica Farrell APRN LACQUER SHADER 6405 [facility] [address] [place] [address] Nurse Practitioner Cardiovascular Disease 09/09/21 Teresita Bean, [facility] [address] [place] [address] Pharmacist Pharmacist 09/24/21 09/29/21 Tavia Wyatt MD Assigned Surgical Provider 11/29/21 05/07/22 [facility] [address] [place] [address] Assigned MTM Pharmacist 01/02/22 Rich Barrett MD 516 [facility] [address] [place], [place] [address] Physician Ophthalmology 01/21/22 Neil Kent MD 500 [place] [address] Dermatology 02/24/22 Roney Story DPM [address] [facility] [address] [place] [address] Assigned Musculoskeletal Provider 03/20/22 08/13/22 Erica Farrell APRN LACQUER SHADER [address] [place] [address] Assigned Heart and Vascular Provider 04/03/22 04/16/22 Diana Desir, [facility] [address] [place] [address] Assigned MTM Pharmacist 04/07/22 Jelena David OD [address] [facility] [place] [address] Assigned Surgical Provider 05/08/22 10/08/22 Galo Burrell MD Assigned Heart and Vascular Provider 04/17/22 06/11/22 Livan Sharif MD [address] [place] [id number] Cardiovascular Disease 05/14/22 Lvian Sharif MD [address] [place] 891165 Assigned Heart and Vascular Provider 06/12/22 07/23/22 Catherine Cm MD [address] [facility]00 [place] [address] Cardiovascular Disease 07/21/22 Valery Veronica, PA-C [address] [place] [address] 736125 Physician Cnc Manufacturing Engineer Dermatology 07/21/22 Catherine Cm MD [address] [address] Assigned Heart and Vascular Provider 07/24/22 11/05/22 Johnny Murillo MD [address] [place] [address] Assigned Musculoskeletal Provider 08/14/22 10/08/22 Brea Quinn APRN LACQUER SHADER [address] [place] [address] 628565 Nurse Practitioner Dermatology 09/21/22 Brea Quinn APRN LACQUER SHADER [address] [place] [address] Assigned Surgical Provider 10/09/22 [place] [address] [address] Assigned Musculoskeletal Provider 10/09/22 Livan Sharif MD [address], [address] [place] [address] Assigned Heart and Vascular Provider 11/06/22 11/12/22 Catherine Cm MD [address] [facility] [address] [place] [address] Assigned Heart and Vascular Provider 11/13/22 05/27/23 Sydnie Martinez, RN Personal Advocate & Liaison (PAL) Family Medicine 03/28/23 07/31/23 Alfonso Renteria MD 5775 [facility] 200 [place] [address] Assigned Neuroscience Provider 04/02/23 Cheng Todd PA-C [address] [place], [place] [phone] Assigned PCP 04/30/23 07/15/23 Radha Lomeli APRN LACQUER SHADER [address] [place] [address] Assigned Heart and Vascular Provider 05/28/23 Jelena David OD [address] [facility] [place] [address] Ophthalmology 06/15/23 Pao Joseph, VJ Personal Advocate & Liaison (PAL) Nurse 08/01/23 Esha Grimm PA-C [address] [place] [address] Assigned PCP 07/16/23 Valery Veronica PA-C [address] [place] [address] Physician Cnc Manufacturing Engineer Dermatology 09/19/23 Rey Tay MD [address] [place] [address] Gastroenterology 09/20/23 Rocky Zepeda DO [address] [place] [address] Physician Gastroenterology 09/20/23 Philip Dumont MD [address] [place] [address] Physician Ophthalmology 09/22/23 documented as of this encounter
--- OUTSIDE RECORDS SUMMARY | 2023-10-15 21:58 | XMS_ITS | Encounter Summary ---
Author Name Unknown Organization [place] Address [address] [place] [address] Care Team Providers Care Locate Technician Name Role Phone Lita Oseguera Unavailable Unavailable Marija Edgar APRN HEAVY FORGER HELPER Primary Care Provider Chanelle Gutierrez ACCOUNT REPRESENTATIVE CNM Unavailab le Kyara De La Fuente RN Unavailable [phone] Marija Edgar APRN HEAVY FORGER HELPER Unavailable Unavail able Mynor Broussard MD Unavailable [phone] Keisha Dotson MD Unavailable [phone] Galo Burrell MD Unavailable Unavailable Cristina Wood Unavailable Diana Desir [facility] Unavailable Rain Galaviz PA-C Unavailable [phone] Summer Lara MD Unavailable [phone] Summer Lara MD Unavailable [phone] Summer Lara MD Unavailable [phone] Tavia Wyatt MD Unavailable Unavailable Johnny Murillo MD Unavailable Erica Farrell APRN HEAVY FORGER HELPER Unavailable Teresita Bean [facility] Unavailable Tavia Wyatt MD Unavailable Unavailable Diana Desir [facility] Unavailable [phone] Rich Barrett MD Unavailable Neil Kent MD Unavailable Roney Story DPM Unavailable [phone] Erica Farrell ACCOUNT REPRESENTATIVE HEAVY FORGER HELPER Unavailable + Desir Diana Colorado [facility] Unavailable [phone] Jelena David OD Unavailable Galo Burrell MD Unavailable Unavailable Livan Sharif MD Unavailable + Livan Sharif MD Unavailable + Catherine Cm MD Unavailable + Valery Veronica PA-C Unavailable [phone] Catherine Cm MD Unavailable + Johnny Murillo MD Unavailable [phone] Brea Quinn ACCOUNT REPRESENTATIVE HEAVY FORGER HELPER Unavailable [phone] Brea Quinn ACCOUNT REPRESENTATIVE HEAVY FORGER HELPER Unavailable [phone] Jose Francisco Johnson MD Unavailable Livan Sharif MD Unavailable + Catherine Cm MD Unavailable + Sydnie Martinez RN Unavailable Unavailable Alfonso Renteria MD Unavailable [phone] Esha Grimm PA-C Primary Care Provider [phone] Cheng Todd PA-C Unavailable [phone] Radha Lomeli ACCOUNT REPRESENTATIVE HEAVY FORGER HELPER Unavailable [phone] Jelena David OD Unavailable Pao Joseph RN Unavailable Unavailable Esha Grimm PA-C Unavailable [phone] Valery Veronica PA-C Unavailable [phone] Rey Tay MD Unavailable ZepedaRocky Unavailable Philip Dumont MD Unavailable [phone] Encounter Details Date Type Department Care Team (Late st Contact Info) Description 01/02/2021 MyC Medical Advice [address] [address] Kierra Eller Social History Tobacco Use Types Packs/Day Years [...] week 08/07/2020 How often do you attend [facility] or restorationism services? More than 4 times per year 08/07/2020 Do you belong to any clubs o r organizations such as holiness groups, unions, fraternal or athletic groups, [...] Answer Date Recorded PHQ-2 Score 3 09/29/2020 [facility] - Occupational Stress Questionnaire Answer Date [...] in a snf (including now)? No 08/11/2020 Education Answer Date [...] Visit [facility] [address]th [place] [phone] Nelly [address], [address]09 [place] [address] 11/03/2023 8:00 AM CDT Office Visit [address] [phone] Valery Veronica PA-C [address] [place] [address] 11/29/2023 8:00 AM CDT Office Visit [address] [phone] Esha Grimm PA-C [address] [place] [address] 01/02/2024 8:00 AM CDT Office Visit [facility] [address] [place] [address] Lauren Claudio PA-C [address] [place] [address] Kelli Perez MD [address] [facility] [address] [phone] documented as of this encounter Visit Diagnoses Not on filedocumented in this encounter Additional Health Concerns Infection Onset Date Last Indicated Resolved Time Rule Out COVID-19 05/11/2021 05/11/2021 05/13/2021 10:18 AM CDT Rule Out COVID-19 07/13/2021 07/13/2021 07/14/2021 3:04 PM DEPUTY CHIEF SHERIFF Rule Out COVID-19 07/18/2021 07/18/2021 07/20/2021 1:56 PM DEPUTY CHIEF SHERIFF COVID-19 07/18/2021 07/18/2021 08/08/2021 11:3 9 PM DEPUTY CHIEF SHERIFF Rule Out COVID-19 12/18/2021 12/18/2021 12/19/2021 11:34 AM CDT Rule Out COVID-19 02/24/2022 02/24/2022 02/25/2022 1:08 PM CDT Rule Out COVID-19 04/26/2022 04/26/2022 04/26/2022 6:47 AM CDT Rule Out COVID-19 05/17/2022 05/17/2022 05/17/2022 10:20 PM DEPUTY CHIEF SHERIFF Rule Out COVID-19 06/09/2022 06/09/2022 06/09/2022 9:35 AM DEPUTY CHIEF SHERIFF COVID-19 06/09/2022 06/09/2022 06/30/2022 11:4 1 PM DEPUTY CHIEF SHERIFF Rule Out COVID-19 11/10/2022 11/10/2022 11/11/2022 12:17 PM CDT Rule Out COVID-19 03/07/2023 03/07/2023 03/07/2023 1:20 PM CDT Assessment Noted Time PHQ-9 Depression Total Score: 6 09/30/19 3:25 PM CDT documented as of this encounter Care Teams Locate Technician Relationship Specialty Start Date End Date Marija Edgar APRN HEAVY FORGER HELPER PCP - General Nurse Practitioner 04/30/20 04/14/23 Esha Grimm PA-C [address] [place] [phone] PCP - General Family Medicine 05/04/23 Lita Oseguera Personal Advocate & Liaison (PAL) 02/28/20 03/27/23 Chanelle Mccann APRN CNM [address] [place] [address] 200 [place] [address] Assigned OBGYN Provider 05/02/2005/09 Kyara De La Fuente, RN Specialty Solar Sales Consultant Neurology 06/04/20 03/05/21 Marija Edgar APRN HEAVY FORGER HELPER Assigned PCP 06/08/20 04/29/23 Mynor Broussard MD 6363 [facility] 500 [place] [address] Assigned Surgical Provider 06/01/20 11/28/21 Keisha Dotson MD 909 [place], [place] [address] Assigned Neuroscience Provider 06/04/20 04/01/23 Galo Burrell MD Assigned Heart and Vascular Provider 10/05/20 04/02/22 Cristina Wood Financial Resource Worker 02/09/21 02/09/21 Thang Diana Stanislav, [facility] [address] [place] [address] Pharmacist Pharmacist 04/17/21 Rain Galaviz PA-C [address] [place] [address] [place] [address] Physician School Childcare Attendant Dermatology 04/28/21 Summer Lara MD [address] [place] [address] Assigned OBGYN Provider 05/10/2105/23 Summer Lara MD [address] [place] [address] Assigned OBGYN Provider 05/31/21 Summer Lara MD [address] [place] [address] Assigned OBGYN Provider 05/24/2105/30 Tavia Wyatt MD [address] [place] [address] Dermatology 07/14/21 Johnny Murillo MD [address] [place] [address] Assigned Musculoskeletal Provider 08/30/21 03/17/22 Erica Farrell APRN HEAVY FORGER HELPER 6405 [facility] [address] [place] [address] Nurse Practitioner Cardiovascular Disease 09/09/21 Teresita Bean [facility] [address] [facility] [address] [place] [phone] Pharmacist Pharmacist 09/24/21 09/29/21 Tavia Wyatt MD Assigned Surgical Provider 11/29/21 05/07/22 [facility] 3033 [place] [address] Assigned MTM Pharmacist 01/02/22 Rich Barrett MD [address] [place] [address] Physician Ophthalmology 01/21/22 Neil Kent MD 500 [place] [address] Dermatology 02/24/22 Roney Story DPM [address] [facility] [place] 300 [place] [address] Assigned Musculoskeletal Provider 03/20/22 08/13/22 Erica Farrell APRN HEAVY FORGER HELPER 1700 [place] [address] Assigned Heart and Vascular Provider 04/03/22 04/16/22 [facility] 3033 [place] [address] Assigned MTM Pharmacist 04/07/22 Jelena David OD [address] [place] [address] [place] [address] Assigned Surgical Provider 05/08/22 10/08/22 Galo Burrell MD Assigned Heart and Vascular Provider 04/17/22 06/11/22 Livan Sharif MD [address], [facility] [address] [place] 42[address] Cardiovascular Disease 05/14/22 Livan Sharif MD [address], [facility] [address] [place] 963235 Assigned Heart and Vascular Provider 06/12/22 07/23/22 Catherine Cm MD [address] [facility]00 [place] 9[address] Cardiovascular Disease 07/21/22 Valery Veronica, PA-C [address] [place] [address] 408515 Physician School Childcare Attendant Dermatology 07/21/22 Catherine Cm MD [address] [facility]00 [place] 498[address] Assigned Heart and Vascular Provider 07/24/22 11/05/22 Johnny Murillo MD [facility] [place] [facility] [address] [address] Assigned Musculoskeletal Provider 08/14/22 10/08/22 Brea Quinn APRN HEAVY FORGER HELPER [address] [place] [address] [phone] Nurse Practitioner Dermatology 09/21/22 Brea Quinn APRN HEAVY FORGER HELPER 6401 [facility] [place] [address] Assigned Surgical Provider 10/09/22 [place] [address] [address] Assigned Musculoskeletal Provider 10/09/22 Livan Sharif MD [address], [facility] [address] [place] [address]80[address] Assigned Heart and Vascular Provider 11/06/22 11/12/22 Catherine Cm MD [address] [facility] [address] [place] [address] Assigned Heart and Vascular Provider 11/13/22 05/27/23 Sydnie Martinez, RN Personal Advocate & Liaison (PAL) Family Medicine 03/28/23 07/31/23 Alfonso Renteria MD 5775 [facility] 200 [place] [address] Assigned Neuroscience Provider 04/02/23 Cheng Todd PA-C [address] [place] [address] Assigned PCP 04/30/23 07/15/23 Radha Lomeli APRN HEAVY FORGER HELPER [address] [place] 223695 Assigned Heart and Vascular Provider 05/28/23 Jelena David OD [address] [place] [address] Ophthalmology 06/15/23 Pao Joseph, RN Personal Advocate & Liaison (PAL) Nurse 08/01/23 Esha Grimm PA-C [address] [place] [phone] Assigned PCP 07/16/23 Valery Veronica PA-C 9 [place], [place] 233085 Physician School Childcare Attendant Dermatology 09/19/23 Rey Tay MD [address] [place] [address] 529345 Gastroenterology 09/20/23 Rocky Zepeda DO [address] [place] [address] 838015 Physician Gastroenterology 09/20/23 Philip Dumont MD [address] [place] [address] Physician Ophthalmology 09/22/23 documented as of this encounter
--- OUTSIDE RECORDS SUMMARY | 2023-10-15 21:58 | XMS_ITS | Encounter Summary ---
Author Name Unknown Organization [place] Address [address] [place] [address] Care Team Providers Care Disaster Recovery Manager Name Role Phone Lita Oseguera Unavailable Unavailable Marija Edgar APRN BEEF CATTLE FARM WORKER Primary Care Provider Chanelle Gutierrez APRN CNM Unavailab le Kyara De La Fuente RN Unavailable [phone] Marija Edgar APRN BEEF CATTLE FARM WORKER Unavailable Unavail able Mynor Broussard MD Unavailable [phone] Keisha Dotson MD Unavailable Stacey Briones TABLE TENDER Unavailable [phone] Lesley Moody CHW Unavailable Mary Mejia Unavailable Unavailable Lita Oseguera Unavailable Unavailable Galo Burrell MD Unavailable Unavailable Cristina Wood Unavailable Lesley Moody CHW Unavailable Meredith Bedoya Unavailable Unavailable Cristina Wood Unavailable Diana Desir [facility] Unavailable [phone] Rain Galaviz PA-C Unavailable Summer Lara MD Unavailable [phone] Summer Lara MD Unavailable [phone] Summer Lara MD Unavailable [phone] Tavia Wyatt MD Unavailable Unavailable SembraJohnny ortiz MD Unavailable [phone] Erica Farrell MANUAL TRAINING TEACHER BEEF CATTLE FARM WORKER Unavailable + Teresita Bean [facility] Unavailable Tavia Wyatt MD Unavailable Unavailable Diana Desir [facility] Unavailable [phone] Rich Barrett MD Unavailable +[phone] Neil Kent MD Unavailable Roney Story DPM Unavailable [phone] Erica Farrell MANUAL TRAINING TEACHER BEEF CATTLE FARM WORKER Unavailable + Diana Desir [facility] Unavailable [phone] Jelena David Radha Unavailable Galo Burrell MD Unavailable Unavailable Livan Sharif MD Unavailable + Livan Sharif MD Unavailable + Catherine Cm MD Unavailable + Valery Veronica PA-C Unavailable [phone] Catherine Cm MD Unavailable + Johnny Murillo MD Unavailable +1- Brea Quinn MANUAL TRAINING TEACHER BEEF CATTLE FARM WORKER Unavailable +1- Brea Quinn MANUAL TRAINING TEACHER BEEF CATTLE FARM WORKER Unavailable [phone] Jose Francisco Johnson MD Unavailable Livan Sharif MD Unavailable + Catherine Cm MD Unavailable + Sydnie Martinez RN Unavailable Unavailable Alfonso Renteria MD Unavailable [phone] Esha GrimmC Primary Care Provider [phone] Cheng ToddC Unavailable Radha Lomeli APRN BEEF CATTLE FARM WORKER Unavailable [phone] Jelena David OD Unavailable Pao Joseph RN Unavailable Unavailable Esha Grimm PA-C Unavailable [phone] Valery VeronicaC Unavailable [phone] Rey Tay MD Unavailable Rocky Zepeda DO Unavailable Philip Dumont MD Unavailable [phone] Reason for Visit * Reason Onset Date Comments MyChart Communication 09/08/2020 Encounter Details Date Type Department Care Team (Latest Contact Info) Description 09/08/2020 MyC Medical Advice [address] [address] Marija Edgar APRN BEEF CATTLE FARM WORKER MyChart Communication Social History Tobacco Use Types Packs/Day Years [...] you attend chur ch or buddhism services? More than 4 times per year [...] PHQ-2 Answer Date Recorded PHQ-2 Score 0 [facility]12[facility]2020 [facility] Answer Date Recorded [...] [place] [facility] [place] (including now)? No 08/11/2020 Education Answer Date [...] have Coronavirus / COVID-19? No / Unsure 09/09/2020 10:09 AM SIDE FRAMER documented as of this encounter Miscellaneous Notes * Telephone Encounter - Natasha Luis RN - 09/09/2020 7:29 AM CST See [employer] message, cardio ordered, pt cannot view echo on Mychart, recommend f/u with cardio, pt also has appointment tomorrow with AG, may close if pt has not further questions Patient Release Status: This result is not viewable by the patient. Interpretation Summary The visual ejection fraction is estimated at 55%. The right ventricle is normal in structure, function and size. There is trace to mild pulmonic valvular regurgitation. Natasha Luis RN, BSN Message handled by CLINIC NURSE.' FRAMER * Telephone Encounter - Ever Cardozo MA - 09/09/2020 7:08 AM CST Triage, could you please see if results are posted yet in regards to patients ultrasound. Ever Cardozo DISABILITY COUNSELOR ([facility]) FRAMER documented in this encounter Plan of Treatment Upcoming Encounters Date Type Department Care Team (Late st Contact Info) Description 10/25/2023 11:30 AM CDT Virtual Visit [facility] [address] 4th [place] [phone] Nelly Mesa, RD [address] [place] [address] 11/03/2023 8:00 AM CDT Office Visit [address] [phone] Valery Veronica PA-C [address] [place] [address] 11/29/2023 8:00 AM CDT Office Visit [facility] [id number] [place] [phone] Esha Grimm PA-C [address] [place] [phone] 01/02/2024 8:00 AM CDT Office Visit [facility] Sleep [facility] [address] [place] [phone] Lauren Claudio PA-C [address] [place], [place] [phone] Kelli Perez MD [address] [address] documented as of this encounter Visit Diagnoses Not on filedocumented in this encounter Additional Health Concerns Infection Onset Date Last Indicated Resolved Time Rule Out COVID-19 09/24/2020 09/24/2020 09/24/2020 9:24 AM CDT Rule Out COVID-19 11/05/2020 11/05/2020 11/06/2020 1:09 PM CDT Rule Out COVID-19 05/11/2021 05/11/2021 05/13/2021 10:18 AM CDT Rule Out COVID-19 07/13/2021 07/13/2021 07/14/2021 3:04 PM SIDE FRAMER Rule Out COVID-19 07/18/2021 07/18/2021 07/20/2021 1:56 PM SIDE FRAMER COVID-19 07/18/2021 07/18/2021 08/08/2021 11:3 9 PM SIDE FRAMER Rule Out COVID-19 12/18/2021 12/18/2021 12/19/2021 11:34 AM CDT Rule Out COVID-19 02/24/2022 02/24/2022 02/25/2022 1:08 PM CDT Rule Out COVID-19 04/26/2022 04/26/2022 04/26/2022 6:47 AM CDT Rule Out COVID-19 05/17/2022 05/17/2022 05/17/2022 10:20 PM SIDE FRAMER Rule Out COVID-19 06/09/2022 06/09/2022 06/09/2022 9:35 AM SIDE FRAMER COVID-19 06/09/2022 06/09/2022 06/30/2022 11:4 1 PM SIDE FRAMER Rule Out COVID-19 11/10/2022 11/10/2022 11/11/2022 12:17 PM CDT Rule Out COVID-19 03/07/2023 03/07/2023 03/07/2023 1:20 PM CDT Assessment Noted Time PHQ-9 Depression Total Score: 9 06/25/20 7:04 AM SIDE FRAMER documented as of this encounter Care Teams Disaster Recovery Manager Relationship Specialty Start Date End Date Marija Edgar APRN BEEF CATTLE FARM WORKER PCP - General Nurse Practitioner 04/30/20 04/14/23 Esha Grimm PA-C [address] [place] [phone] PCP - General Family Medicine 05/04/23 Lita Oseguera Personal Advocate & Liaison (PAL) 02/28/20 03/27/23 Chanelle Mccann APRN CNM [address] [address] 200 [place] [address] Assigned OBGYN Provider 05/02/2005/09 Kyara De La Fuente, RN Specialty Lithographic Retoucher Apprentice Neurology 06/04/20 03/05/21 aMrija Edgar APRN BEEF CATTLE FARM WORKER Assigned PCP 06/08/20 04/29/23 Mynor Broussard MD 6363 [facility] 500 [place] [address] Assigned Surgical Provider 06/01/20 11/28/21 Keisha Dotson MD 909 [place] [address] Assigned Neuroscience Provider 06/04/20 04/01/23 Stacey Briones, TABLE TENDER Lead Lithographic Retoucher Apprentice Primary Care - CC 08/11/2012/30 Lesley Moody, W Community Health Worker 08/11/2010/01 Mary Mejia Financial Resource Worker 09/02/20 10/06/20 Lita Oseguera Personal Advocate & Liaison (PAL) Family Medicine 09/10/20 09/21/20 Galo Burrell MD Assigned Heart and Vascular Provider 10/05/20 04/02/22 Cristina Wood Financial Resource Worker 10/07/20 10/14/20 Lesley Moody, [facility] Community Health Worker 10/23/2012/30 Meredith Bedoya Financial Resource Worker 10/23/20 11/23/20 Cristina Wood Financial Resource Worker 02/09/21 02/09/21 Diana Desir, [facility] 3033 [place], [place] [address] Pharmacist Pharmacist 04/17/21 Rain Galaviz PA-C [address] [place] [address] [address] [place], [place] [phone] Physician Change Control Analyst Dermatology 04/28/21 Summer Lara MD [address] [place] [address] [id number] Assigned OBGYN Provider 05/10/2105/23 Summer Lara MD [address] [place] [address] 184454 Assigned OBGYN Provider 05/31/21 2 Summer Lara MD [address] [place] [address] Assigned OBGYN Provider 05/24/2105/30 Tavia Wyatt MD [address] [place] [address] Dermatology 07/14/21 Johnny Murillo MD [address] [place] [address] Assigned Musculoskeletal Provider 08/30/21 03/17/22 Erica Farrell APRN BEEF CATTLE FARM WORKER [address] [facility] [address] [place] [address] Nurse Practitioner Cardiovascular Disease 09/09/21 Teresita Bean, [facility] [address] [facility] [address] [place], [place] [phone] Pharmacist Pharmacist 09/24/21 09/29/21 Tavia Wyatt MD Assigned Surgical Provider 11/29/21 05/07/22 [facility] [address] [place] [address] Assigned MTM Pharmacist 01/02/22 Rich Barrett MD 516 [facility] [address] [place], [place] 9[address] Physician Ophthalmology 01/21/22 Neil Kent MD 500 [place], [place] 6[address]15 Dermatology 02/24/22 Roney Story DPM [address] [facility] [address] [place], [place] 4745[address] Assigned Musculoskeletal Provider 03/20/22 08/13/22 Erica Farrell APRN BEEF CATTLE FARM WORKER 1700 [place] [address] Assigned Heart and Vascular Provider 04/03/22 04/16/22 Diana Desir, [facility] 3033 [place] [address] Assigned MTM Pharmacist 04/07/22 Jelena David OD [address] [facility] [place] [address] Assigned Surgical Provider 05/08/22 10/08/22 Galo Brurell MD Assigned Heart and Vascular Provider 04/17/22 06/11/22 Livan Sharif MD [address], [address] [place] [address] Cardiovascular Disease 05/14/22 Livan Sharif MD [address], [address] [place] [address] Assigned Heart and Vascular Provider 06/12/22 07/23/22 Catherine Cm MD [address] [place] [address] Cardiovascular Disease 07/21/22 Valery Veronica PA-C 909 [place] [address] Physician Change Control Analyst Dermatology 07/21/22 Catherine Cm MD [address] [place] [address] Assigned Heart and Vascular Provider 07/24/22 11/05/22 Johnny Murillo MD [address] [facility] [address] [place] [address] Assigned Musculoskeletal Provider 08/14/22 10/08/22 Brea Quinn APRN BEEF CATTLE FARM WORKER 500 [place] [address] Nurse Practitioner Dermatology 09/21/22 Brea Quinn APRN BEEF CATTLE FARM WORKER 6401 [place] [address] Assigned Surgical Provider 10/09/22 [place] [address] [facility] 300 [place] [address] Assigned Musculoskeletal Provider 10/09/22 Livan Sharif MD [address], [facility] [address] [place] [address] Assigned Heart and Vascular Provider 11/06/22 11/12/22 Catherine Cm MD [address] [place], [place] 85[address] Assigned Heart and Vascular Provider 11/13/22 05/27/23 Sydnie Martinez RN Personal Advocate & Liaison (PAL) Family Medicine 03/28/23 07/31/23 Alfonso Renteria MD 5775 [facility] 200 [place] [address] Assigned Neuroscience Provider 04/02/23 Cheng Todd PA-C [address] [place], [place] 48[address] Assigned PCP 04/30/23 07/15/23 Radha Lomeli APRN BEEF CATTLE FARM WORKER 6[address] [facility] [address] [place] [address] Assigned Heart and Vascular Provider 05/28/23 Jelena David OD [facility] [facility] [place] [address] Ophthalmology 06/15/23 Pao Joseph, VJ Personal Advocate & Liaison (PAL) Nurse 08/01/23 Esha Grimm PA-C [address] [place] [phone] Assigned PCP 07/16/23 Valery Veronica PA-C [address] [place] [address] 597335 Physician Change Control Analyst Dermatology 09/19/23 Rey Tay MD [address] [place] [address] 885945 Gastroenterology 09/20/23 Rocky Zepeda DO [address] [place] [address] 031305 Physician Gastroenterology 09/20/23 Philip Dumont MD [address] [place] [address] Physician Ophthalmology 09/22/23 documented as of this encounter
--- OUTSIDE RECORDS SUMMARY | 2023-10-15 21:58 | XMS_ITS | Encounter Summary ---
Author Name Unknown Organization [place] Address [address] [place] [address] Care Team Providers Care Cnc Lathe Machinist Name Role Phone Lita Oseguera Unavailable Unavailable Marija Edgar APRN UNDERCOAT SPRAYER Primary Care Provider Chanelle Gutierrez APRN CNM Unavailab le Kyara De La Fuente RN Unavailable [phone] Marija Edgar APRN UNDERCOAT SPRAYER Unavailable Unavail able Mynor Broussard MD Unavailable [phone] Keisha Dotson MD Unavailable [phone] Stacey Briones [employer] OFFICER Unavailable Lesley Moody CHW Unavailable Mary Mejia Unavailable Unavailable Lita Oseguera Unavailable Unavailable Galo Burrell MD Unavailable Unavailable Cristina Wood Unavailable Lesley Moody CHW Unavailable Meredith Bedoya Unavailable Unavailable Cristina Wood Unavailable Diana Desir [facility] Unavailable Rain Galaviz PA-C Unavailable Summer Lara MD Unavailable [phone] Summer Lara MD Unavailable [phone] Summer Lara MD Unavailable [phone] Tavia Wyatt MD Unavailable Unavailable SembraJohnny ortiz MD Unavailable +[phone] Erica Farrell LEATHER FINISHER UNDERCOAT SPRAYER Unavailable + Teresita Bean [facility] Unavailable Tavia Wyatt MD Unavailable Unavailable Diana Desir [facility] Unavailable [phone] Rich Barrett MD Unavailable +[phone] Neil Kent MD Unavailable Roney Story DPM Unavailable [phone] Erica Farrell LEATHER FINISHER UNDERCOAT SPRAYER Unavailable + Diana Desir [facility] Unavailable [phone] Jelena David Radha Unavailable [phone] Galo Burrell MD Unavailable Unavailable Livan Sharif MD Unavailable + Livan Sharif MD Unavailable + Catherine Cm MD Unavailable + Valery Veronica PA-C Unavailable [phone] Catherine Cm MD Unavailable + Johnny Murillo MD Unavailable +1- Brea Quinn LEATHER FINISHER UNDERCOAT SPRAYER Unavailable +1- Brea Quinn LEATHER FINISHER UNDERCOAT SPRAYER Unavailable [phone] Jose Francisco Johnson MD Unavailable Livan Sharif MD Unavailable + Catherine Cm MD Unavailable + Sydnie Martinez RN Unavailable Unavailable Alfonso Renteria MD Unavailable [phone] Esha GrimmC Primary Care Provider Cheng ToddC Unavailable Radha Lomeli APRN UNDERCOAT SPRAYER Unavailable [phone] Jelena David OD Unavailable Pao Joseph RN Unavailable Unavailable Esha Grimm PA-C Unavailable [phone] Valery VeronicaC Unavailable [phone] Rey Tay MD Unavailable Rocky Zepeda DO Unavailable Philip Dumont MD Unavailable [phone] Reason for Visit * Reason Onset Date Comments MyChart Communication 09/02/2020 Encounter Details Date Type Department Care Team (Latest Contact Info) Description 09/02/2020 MyC Medical Advice [address] [address] Marija Edgar APRN UNDERCOAT SPRAYER MyChart Communication Social History Tobacco Use Types [...] you attend chur ch or yarsani services? More than 4 times per year [...] Answer Date Recorded PHQ-2 Score 0 08/12/2020 [facility] Questionnaire Answer Date [...] or slept in a half-way (including now)? No 08/11/2020 Education Answer Date [...] have Coronavirus / COVID-19? No / Unsure 09/05/2020 2:50 PM REGULATORY AFFAIRS ANALYST documented as of this encounter Miscellaneous Notes * Telephone Encounter - Ever Cardozo MA - 09/03/2020 10:34 AM CST Responded to patient as below. Ever Cardozo AIRCRAFT CAPTAIN ([facility]) LATORY AFFAIRS ANALYST documented in this encounter Plan of Treatment Upcoming Encounters Date Type Department Care Team (Late st Contact Info) Description 10/25/2023 11:30 AM CDT Virtual Visit [facility] Gastroenterology Clinic [address] 4th [place] [address] Nelly Mes[address], RD 909 [place] [address] 11/03/2023 8:00 AM CDT Office Visit [facility] 830 [place] [address] Valery Veronica PA-C 909 [place] [address] 11/29/2023 8:00 AM CDT Office Visit [facility] [address] [place] [address] Esha Grimm PA-C [address] [place] [phone] 01/02/2024 8:00 AM CDT Office Visit [facility] [address] [place] [phone] Lauren Claudio PA-C [address] [place] [address] Kelli Perez MD [address] 764384 documented as of this encounter Visit Diagnoses Not on filedocumented in this encounter Additional Health Concerns Infection Onset Date Last Indicated Resolved Time Rule Out COVID-19 09/24/2020 09/24/2020 09/24/2020 9:24 AM CDT Rule Out COVID-19 11/05/2020 11/05/2020 11/06/2020 1:09 PM CDT Rule Out COVID-19 05/11/2021 05/11/2021 05/13/2021 10:18 AM CDT Rule Out COVID-19 07/13/2021 07/13/2021 07/14/2021 3:04 PM REGULATORY AFFAIRS ANALYST Rule Out COVID-19 07/18/2021 07/18/2021 07/20/2021 1:56 PM REGULATORY AFFAIRS ANALYST COVID-19 07/18/2021 07/18/2021 08/08/2021 11:3 9 PM REGULATORY AFFAIRS ANALYST Rule Out COVID-19 12/18/2021 12/18/2021 12/19/2021 11:34 AM CDT Rule Out COVID-19 02/24/2022 02/24/2022 02/25/2022 1:08 PM CDT Rule Out COVID-19 04/26/2022 04/26/2022 04/26/2022 6:47 AM CDT Rule Out COVID-19 05/17/2022 05/17/2022 05/17/2022 10:20 PM REGULATORY AFFAIRS ANALYST Rule Out COVID-19 06/09/2022 06/09/2022 06/09/2022 9:35 AM REGULATORY AFFAIRS ANALYST COVID-19 06/09/2022 06/09/2022 06/30/2022 11:4 1 PM REGULATORY AFFAIRS ANALYST Rule Out COVID-19 11/10/2022 11/10/2022 11/11/2022 12:17 PM CDT Rule Out COVID-19 03/07/2023 03/07/2023 03/07/2023 1:20 PM CDT Assessment Noted Time PHQ-9 Depression Total Score: 9 06/25/20 20 7:04 AM REGULATORY AFFAIRS ANALYST documented as of this encounter Care Teams Cnc Lathe Machinist Relationship Specialty Start Date End Date Marija Edgar APRN UNDERCOAT SPRAYER PCP - General Nurse Practitioner 04/30/20 04/14/23 Esha Grimm PA-C [address] [place] [address] PCP - General Family Medicine 05/04/23 Lita Oseguera Personal Advocate & Liaison (PAL) 02/28/20 03/27/23 Chanelle Mccann APRN CNM [address] [place] [address] Assigned OBGYN Provider 05/02/2005/09 Kyara De La Fuente, RN Specialty Fashion Director Party Plan Sales Neurology 06/04/20 03/05/21 Marija Edgar APRN UNDERCOAT SPRAYER Assigned PCP 06/08/20 04/29/23 Mynor Broussard MD [address] [address] Assigned Surgical Provider 06/01/20 11/28/21 Keisha Dotson MD 909 [place] [address] Assigned Neuroscience Provider 06/04/20 04/01/23 Stacey Briones, [facility] Lead Fashion Director Party Plan Sales Primary Care - CC 08/11/2012/30 Lesley Moody, [facility] Community Health Worker 08/11/2010/01 Mary Mejia Financial Resource Worker 09/02/20 10/06/20 Lita Oseguera Personal Advocate & Liaison (PAL) Family Medicine 09/10/20 09/21/20 Galo Burrell MD Assigned Heart and Vascular Provider 10/05/20 04/02/22 Cristina Wood Financial Resource Worker 10/07/20 10/14/20 Lesley Moody, [facility] Community Health Worker 10/23/2012/30 Meredith Bedoya Financial Resource Worker 10/23/20 11/23/20 Cristina Wood Financial Resource Worker 02/09/21 02/09/21 Diana Desir, [facility] [address] [place] [address] Pharmacist Pharmacist 04/17/21 Rain Galaviz PA-C [address] [facility] [place] [address] Physician Sash Installer Dermatology 04/28/21 Summer Lara MD [address] [place], [place] [address] Assigned OBGYN Provider 05/10/2105/23 Summer Lara MD [address] [place] [address] Assigned OBGYN Provider 05/31/21 Summer Lara MD [address] [place] [address] [place], [place] [address] Assigned OBGYN Provider 05/24/2105/30 Tavia Wyatt MD [address] [place] [address] [place] [address] Dermatology 07/14/21 Johnny Murillo MD [address] [place] [address] Assigned Musculoskeletal Provider 08/30/21 03/17/22 Erica Farrell APRN UNDERCOAT SPRAYER [address] [facility] [address] [place] [address] Nurse Practitioner Cardiovascular Disease 09/09/21 Teresita Bean, [facility] [address] [facility] [place] [address] Pharmacist Pharmacist 09/24/21 09/29/21 Tavia Wyatt MD Assigned Surgical Provider 11/29/21 05/07/22 Diana Desir, [facility] [address] [place] [address] Assigned MTM Pharmacist 01/02/22 Rich Barrett MD [address] 332[address] Physician Ophthalmology 01/21/22 Neil Kent MD 500 [place], [place] 7[address]175 Dermatology 02/24/22 Roney Story DPM 834[address] [facility] [address] [place], [place] [address] Assigned Musculoskeletal Provider 03/20/22 08/13/22 Erica Farrell APRN UNDERCOAT SPRAYER 1700 [place] [address] Assigned Heart and Vascular Provider 04/03/22 04/16/22 Diana Desir, [facility] 3033 [place] [address] Assigned MTM Pharmacist 04/07/22 Jelena David OD [address] [facility] [place] [address] Assigned Surgical Provider 05/08/22 10/08/22 Galo Burrell MD Assigned Heart and Vascular Provider 04/17/22 06/11/22 Livan Sharif MD [address] [place] [address] Cardiovascular Disease 05/14/22 Livan Sharif MD [address] [place] [address] Assigned Heart and Vascular Provider 06/12/22 07/23/22 Catherine Cm MD [address] [place] [address] Cardiovascular Disease 07/21/22 Valery Veronica, PA-C [address] [place] [address] 814125 Physician Sash Installer Dermatology 07/21/22 Catherine Cm MD [address] [place], [place] 49[address] Assigned Heart and Vascular Provider 07/24/22 11/05/22 Johnny Murillo MD [facility] [address] 753204 Assigned Musculoskeletal Provider 08/14/22 10/08/22 Brea Quinn APRN UNDERCOAT SPRAYER [address] [place] [address] 806045 Nurse Practitioner Dermatology 09/21/22 Brea Quinn APRN UNDERCOAT SPRAYER 6401 [facility] [place] [address] Assigned Surgical Provider 10/09/22 [place] [address] [place] [address] Assigned Musculoskeletal Provider 10/09/22 Livan Sharif MD [address] [place], [place] [address] Assigned Heart and Vascular Provider 11/06/22 11/12/22 Catherine Cm MD [address] [place] [address] Assigned Heart and Vascular Provider 11/13/22 05/27/23 Sydnie Martinez, VJ Personal Advocate & Liaison (PAL) Family Medicine 03/28/23 07/31/23 Alfonso Renteria MD 5775 [facility] 200 [place] [address] Assigned Neuroscience Provider 04/02/23 Cheng Todd PA-C [address] [place] [address] Assigned PCP 04/30/23 07/15/23 Radha Lomeli APRN UNDERCOAT SPRAYER [address] [place] [address] Assigned Heart and Vascular Provider 05/28/23 Jelena David OD [address] [facility] [address] [place] [address] Ophthalmology 06/15/23 Pao Joseph, RN Personal Advocate & Liaison (PAL) Nurse 08/01/23 Esha Grimm PA-C [address] [place] [address] Assigned PCP 07/16/23 Valery Veronica PA-C [address] [place] [address] 865875 Physician Sash Installer Dermatology 09/19/23 Rey Tay MD [address] [place] [address] 596345 Gastroenterology 09/20/23 Rocky Zepeda DO [address] [place] [address] 348345 Physician Gastroenterology 09/20/23 Philip Dumont MD [address] [place] [address] 471825 Physician Ophthalmology 09/22/23 documented as of this encounter
--- OUTSIDE RECORDS SUMMARY | 2023-10-15 21:58 | XMS_ITS | Encounter Summary ---
Author Name Unknown Organization [facility] Address [address] [place] [address] Care Team Providers Care Firearms Inspector Name Role Phone Lita Oseguera Unavailable Unavailable Marija Edgar APRN INDUSTRIAL FABRIC CUTTER Primary Care Provider Chanelle Gutierrez BLOCK PAVER CNM Unavailab le Kyara De La Fuente RN Unavailable [phone] Marija Edgar APRN INDUSTRIAL FABRIC CUTTER Unavailable Unavail able Mynor Broussard MD Unavailable [phone] Keisha Dotson MD Unavailable Stacey Briones JOURNEYMAN PAINTER Unavailable Mary Mejia Unavailable Unavailable Galo Burrell MD Unavailable Unavailable Cristina Wood Unavailable Lesley Moody CHW Unavailable [phone] Meredith Bedoya Unavailable Unavailable Cristina Wood Unavailable Diana Desir [facility] Unavailable Rain Galaviz PA-C Unavailable [phone] Summer Lara MD Unavailable [phone] Summer Lara MD Unavailable [phone] Summer Lara MD Unavailable [phone] Tavia Wyatt MD Unavailable Unavailable SembraJohnny ortiz MD Unavailable +1- Erica Farrell BLOCK PAVER INDUSTRIAL FABRIC CUTTER Unavailable + Vikas Teresita Watson [facility] Unavailable [phone] Tavia Wyatt MD Unavailable Unavailable Diana Desir [facility] Unavailable [phone] Rich Barrett MD Unavailable Neil Kent MD Unavailable Roney Story DPM Unavailable [phone] Erica Farrell BLOCK PAVER INDUSTRIAL FABRIC CUTTER Unavailable + Diana Desir [facility] Unavailable [phone] Jelena David Unavailable Galo Burrell MD Unavailable Unavailable Livan Sharif MD Unavailable + Livan Sharif MD Unavailable + Catherine Cm MD Unavailable + Valery Veronica PA-C Unavailable [phone] Catherine Cm MD Unavailable + Johnny Murillo MD Unavailable +1- Brea Quinn BLOCK PAVER INDUSTRIAL FABRIC CUTTER Unavailable +1- Brea Quinn BLOCK PAVER INDUSTRIAL FABRIC CUTTER Unavailable [phone] Jose Francisco Johnson MD Unavailable Livan Sharif MD Unavailable + Catherine Cm MD Unavailable + Sydnie Martinez RN Unavailable Unavailable Alfonso Renteria MD Unavailable [phone] Esha GrimmC Primary Care Provider Cheng Todd PA-C Unavailable Radha Lomeli APRN INDUSTRIAL FABRIC CUTTER Unavailable [phone] Jelena David OD Unavailable Pao Joseph RN Unavailable Unavailable Esha Grimm PA-C Unavailable [phone] Valery Veronica PA-C Unavailable [phone] Rey Tay MD Unavailable Rocky Zepeda DO Unavailable Philip Dumont MD Unavailable [phone] Encounter Details Date Type Department Care Team (Late st Contact Info) Description 10/02/2020 MyC Medical Advice [facility] Care Coordination [address] [place] [address] Stacey Briones, [facility] Social History Tobacco Use Types Packs/Day Years [...] you attend chur ch or anabaptist services? More than 4 times [...] Answer Date Recorded PHQ-2 Score 3 09/29/2020 [facility] - Occupational Stress Questionnaire Answer Date [...] slept in a long-term (including now)? No 08/11/2020 Education Answer Date [...] have Coronavirus / COVID-19? No / Unsure 10/03/2020 2:50 PM CDT documented as of this encounter Plan of Treatment Upcoming Encounters Date Type Department Care Team (Late st Contact Info) Description 10/25/2023 11:30 AM CDT Virtual Visit [facility] Gastroenterology Clinic [address] [place] [address] Nelly [address], [address] [place], [place] [address] 11/03/2023 8:00 AM CDT Office Visit [address] [address] Valery Veronica PAUcheC [address] [place] [address] 9[address] 11/29/2023 8:00 AM CDT Office Visit [facility] [address] [place] [address] Esha Grimm PA-C [address] [place] [address] 01/02/2024 8:00 AM CDT Office Visit [facility] [address] [place] [address] Lauren Claudio PA-C [address] [place] [address] Kelli Perez MD 606 [facility] [address] [place] [address] documented as of this encounter Visit Diagnoses Not on filedocumented in this encounter Additional Health Concerns Infection Onset Date Last Indicated Resolved Time Rule Out COVID-19 11/05/2020 11/05/2020 11/06/2020 1:09 PM CDT Rule Out COVID-19 05/11/2021 05/11/2021 05/13/2021 10:18 AM CDT Rule Out COVID-19 07/13/2021 07/13/2021 07/14/2021 3:04 PM STILL CLEANER Rule Out COVID-19 07/18/2021 07/18/2021 07/20/2021 1:56 PM STILL CLEANER COVID-19 07/18/2021 07/18/2021 08/08/2021 11:3 9 PM STILL CLEANER Rule Out COVID-19 12/18/2021 12/18/2021 12/19/2021 11:34 AM CDT Rule Out COVID-19 02/24/2022 02/24/2022 02/25/2022 1:08 PM CDT Rule Out COVID-19 04/26/2022 04/26/2022 04/26/2022 6:47 AM CDT Rule Out COVID-19 05/17/2022 05/17/2022 05/17/2022 10:20 PM STILL CLEANER Rule Out COVID-19 06/09/2022 06/09/2022 06/09/2022 9:35 AM STILL CLEANER COVID-19 06/09/2022 06/09/2022 06/30/2022 11:4 1 PM STILL CLEANER Rule Out COVID-19 11/10/2022 11/10/2022 11/11/2022 12:17 PM CDT Rule Out COVID-19 03/07/2023 03/07/2023 03/07/2023 1:20 PM CDT Assessment Noted Time PHQ-9 Depression Total Score: 6 09/30/19 3:25 PM CDT documented as of this encounter Care Teams Firearms Inspector Relationship Specialty Start Date End Date Marija Edgar APRN INDUSTRIAL FABRIC CUTTER PCP - General Nurse Practitioner 04/30/20 04/14/23 Esha Grimm PA-C [address] [place] [address] PCP - General Family Medicine 05/04/23 Lita Oseguera Personal Advocate & Liaison (PAL) 02/28/20 03/27/23 Chanelle Mccann APRN CNM [address] [facility] [address] [place] [address] Assigned OBGYN Provider 05/02/2005/09 Kyara De La Fuente, RN Specialty Manager [employer] Neurology 06/04/20 03/05/21 Marija Edgar APRN INDUSTRIAL FABRIC CUTTER Assigned PCP 06/08/20 04/29/23 Mynor Broussard MD [address] [address] [place] [address] Assigned Surgical Provider 06/01/20 11/28/21 Keisha Dotson MD 909 [place], [place] 122525 Assigned Neuroscience Provider 06/04/20 04/01/23 Stacey Briones, [facility] Lead Manager [employer] Primary Care - CC 08/11/2012/30 Mary Mejia Financial Resource Worker 09/02/20 10/06/20 Galo Burrell MD Assigned Heart and Vascular Provider 10/05/20 04/02/22 Cristina Wood Financial Resource Worker 10/07/20 10/14/20 Lesley Moody, [facility] Community Health Worker 10/23/2012/30 Meredith Bedoya Financial Resource Worker 10/23/20 11/23/20 Cristina Wood Financial Resource Worker 02/09/21 02/09/21 Diana Desir, [facility] 3033 [place], [place] 5610[address] Pharmacist Pharmacist 04/17/21 Rain Galaviz PA-C [address] [place] [address] [address] [place] [place], [place] [phone] Physician Dining Services Manager Dermatology 04/28/21 Summer Lara MD [address] [place] [address] Assigned OBGYN Provider 05/10/2105/23 Summer Lara MD [address] [place] [address] Assigned OBGYN Provider 05/31/21 2 Summer Lara MD [address] [place] [address] Assigned OBGYN Provider 05/24/2105/30 Tavia Wyatt MD [address] [place] [address] Dermatology 07/14/21 Johnny Murillo MD [address] [facility] [address] [place] [address] Assigned Musculoskeletal Provider 08/30/21 03/17/22 Erica Farrell APRN INDUSTRIAL FABRIC CUTTER [address] [facility] [address] [place] [address] Nurse Practitioner Cardiovascular Disease 09/09/21 Teresita Bean [facility] [address] [place] [phone] Pharmacist Pharmacist 09/24/21 09/29/21 Tavia Wyatt MD Assigned Surgical Provider 11/29/21 05/07/22 [address] [place] [address] Assigned MTM Pharmacist 01/02/22 Rich Barrett MD [address] [address] Physician Ophthalmology 01/21/22 Neil Kent MD 500 [place] [address] Dermatology 02/24/22 Roney Story DPM [address] [facility] [address] [place] [address] Assigned Musculoskeletal Provider 03/20/22 08/13/22 Erica Farrell APRN INDUSTRIAL FABRIC CUTTER 1700 [place] [address] Assigned Heart and Vascular Provider 04/03/22 04/16/22 Diana Desir, [facility] 30[address] [place] [address] Assigned MTM Pharmacist 04/07/22 [place] [address] [facility] [place] [id number] Assigned Surgical Provider 05/08/22 10/08/22 Galo Burrell MD Assigned Heart and Vascular Provider 04/17/22 06/11/22 Livan Sharif MD [address] [place] [address] Cardiovascular Disease 05/14/22 Livan Sharif MD [address] [place] [address] Assigned Heart and Vascular Provider 06/12/22 07/23/22 Catherine Cm MD [address] [place] 411865 Cardiovascular Disease 07/21/22 Valery Veronica PA-C 9 [place], [place] 168875 Physician Dining Services Manager Dermatology 07/21/22 Catherine Cm MD [address] [place] [id number] Assigned Heart and Vascular Provider 07/24/22 11/05/22 Johnny Murillo MD [address] [place] [address] Assigned Musculoskeletal Provider 08/14/22 10/08/22 Brea Quinn APRN INDUSTRIAL FABRIC CUTTER [address] [place] [address] Nurse Practitioner Dermatology 09/21/22 Brea Quinn APRN INDUSTRIAL FABRIC CUTTER [address] [place] [address] Assigned Surgical Provider 10/09/22 [place] [address] [address] Assigned Musculoskeletal Provider 10/09/22 Livan Sharif MD [address] Sylvia, [facility]00 [place] [address] Assigned Heart and Vascular Provider 11/06/22 11/12/22 Catherine Cm MD [address] [facility]00 [place] [address] Assigned Heart and Vascular Provider 11/13/22 05/27/23 Sydnie Martinez RN Personal Advocate & Liaison (PAL) Family Medicine 03/28/23 07/31/23 Alfonso Renteria MD 5775 [facility] 200 [place] [address] Assigned Neuroscience Provider 04/02/23 Cheng Todd PA-C [address] [place], [place] 216[address] Assigned PCP 04/30/23 07/15/23 Radha Lomeli APRN INDUSTRIAL FABRIC CUTTER 6[address] [facility] [address] [place], [place] 1447[address] Assigned Heart and Vascular Provider 05/28/[address] [place] [address] [facility] [address] [place] [id number] Ophthalmology 06/15/23 Pao Joseph RN Personal Advocate & Liaison (PAL) Nurse 08/01/23 Esha Grimm PA-C [address] [place] [address] Assigned PCP 07/16/23 Valery Veronica PA-C [address] [place] [address]675 Physician Dining Services Manager Dermatology 09/19/23 Rey Tay MD [address] [place] [address] [phone] Gastroenterology 09/20/23 Rocky Zepeda DO [address] [place] [address] Physician Gastroenterology 09/20/23 Philip Dumont MD [address] [place] [address] 954125 Physician Ophthalmology 09/22/23 documented as of this encounter
--- OUTSIDE RECORDS SUMMARY | 2023-10-15 21:58 | XMS_ITS | Encounter Summary ---
Author Name Unknown Organization [facility] Address [address] [place] [address] Care Team Providers Care Faculty Head Name Role Phone Lita Oseguera Unavailable Unavailable Marija Edgar APRN PATIENT BILLER Primary Care Provider Chanelle Gutierrez BREAKFAST BAR ATTENDANT CNM Unavailab le Kyara De La Fuente RN Unavailable [phone] Marija Edgar APRN PATIENT BILLER Unavailable Unavail able Mynor Broussard MD Unavailable [phone] Keisha Dotson MD Unavailable Stacey Briones VEHICLE SERVICE AGENT Unavailable [phone] Galo Burrell MD Unavailable Unavailable eLsley Moody CHW Unavailable Meredith Bedoya Unavailable Unavailable Cristina Wood Unavailable Diana Desir [facility] Unavailable Rain Galaviz PA-C Unavailable Summer Lara MD Unavailable [phone] Summer Lara MD Unavailable [phone] Summer Lara MD Unavailable [phone] Tavia Wyatt MD Unavailable Unavailable Johnny Murillo MD Unavailable Erica Farrell BREAKFAST BAR ATTENDANT PATIENT BILLER Unavailable Vikas Teresita Jesus Watson [facility] Unavailable Tavia Wyatt MD Unavailable Unavailable Kendrick Desirelle Stanislav [facility] Unavailable [phone] Rich Barrett MD Unavailable Neil [place] MD Unavailable Roney Story DPM Unavailable [phone] Bud, Erica Guidry BREAKFAST BAR ATTENDANT PATIENT BILLER Unavailable + Thang Diana Stanislav [facility] Unavailable [phone] Tommy Davidmao Garcia OD Unavailable Galo Burrell MD Unavailable Unavailable Livan Sharif MD Unavailable + Livan Sharif MD Unavailable + Catherine Cm MD Unavailable + Valery Veronica-C Unavailable [phone] Catherine Cm MD Unavailable + Johnny Murillo MD Unavailable +1- Brea Quinn BREAKFAST BAR ATTENDANT PATIENT BILLER Unavailable [phone] Brea Quinn BREAKFAST BAR ATTENDANT PATIENT BILLER Unavailable [phone] Jose Francisco Johnson MD Unavailable Livan Sharif MD Unavailable + Catherine Cm MD Unavailable + Sydnie Martinez RN Unavailable Unavailable Alfonso Renteria MD Unavailable [phone] Esha Grimm PA-C Primary Care Provider Cheng Todd PA-C Unavailable Radha Lomeli APRN PATIENT BILLER Unavailable [phone] Jelena David OD Unavailable [phone] Pao Joseph RN Unavailable Unavailable Esha Grimm Adam LAYNE Unavailable [phone] Jeremías, Valery Begum PA-C Unavailable [phone] Rey Tay MD Unavailable Rocky Zepeda DO Unavailable Philip Dumont MD Unavailable [phone] Encounter Details Date Type Department Care Team (Late st Contact Info) Description 10/24/2020 MyC Medical Advice [address] [address] Marija Edgar APRN PATIENT BILLER Social History Tobacco Use Types Packs/Day Years [...] week 08/07/2020 How often do you attend [facility] or church services? More than 4 times per year [...] Answer Date Recorded PHQ-2 Score 3 09/29/2020 [facility] - [...] encounter Miscellaneous Notes * Telephone Encounter - Anthony Doe PA-C - 10/27/2020 11:44 AM CDT Replied to patient via [employer]. Anthony Doe PA-C on 10/27/2020 at 11:54 AM documented in this encounter Plan of Treatment Upcoming Encounters Date Type Department Care Team (Late st Contact Info) Description 10/25/2023 11:30 AM CDT Virtual Visit [facility] Gastroenterology Clinic [address] [address] [address], [address] [place] [address] 11/03/2023 8:00 AM CDT Office Visit [facility] 830 [place] [address] Valery Veronica PA-C 909 [place] [address] 11/29/2023 8:00 AM CDT Office Visit [facility] [address] [place] [phone] Esha Grimm PA-C [address] [place] [phone] 01/02/2024 8:00 AM CDT Office Visit [facility] [address] [place] [phone] Lauren Claudio PA-C [address] [place], [place] [phone] Kelli Perez MD [address] [place], [place] [address]174 documented as of this encounter Visit Diagnoses Not on filedocumented in this encounter Additional Health Concerns Infection Onset Date Last Indicated Resolved Time Rule Out COVID-19 11/05/2020 11/05/2020 11/06/2020 1:09 PM CDT Rule Out COVID-19 05/11/2021 05/11/2021 05/13/2021 10:18 AM CDT Rule Out COVID-19 07/13/2021 07/13/2021 07/14/2021 3:04 PM BIOINFORMATICS RESEARCH TECHNICIAN Rule Out COVID-19 07/18/2021 07/18/2021 07/20/2021 1:56 PM BIOINFORMATICS RESEARCH TECHNICIAN COVID-19 07/18/2021 07/18/2021 08/08/2021 11:3 9 PM BIOINFORMATICS RESEARCH TECHNICIAN Rule Out COVID-19 12/18/2021 12/18/2021 12/19/2021 11:34 AM CDT Rule Out COVID-19 02/24/2022 02/24/2022 02/25/2022 1:08 PM CDT Rule Out COVID-19 04/26/2022 04/26/2022 04/26/2022 6:47 AM CDT Rule Out COVID-19 05/17/2022 05/17/2022 05/17/2022 10:20 PM BIOINFORMATICS RESEARCH TECHNICIAN Rule Out COVID-19 06/09/2022 06/09/2022 06/09/2022 9:35 AM BIOINFORMATICS RESEARCH TECHNICIAN COVID-19 06/09/2022 06/09/2022 06/30/2022 11:4 1 PM BIOINFORMATICS RESEARCH TECHNICIAN Rule Out COVID-19 11/10/2022 11/10/2022 11/11/2022 12:17 PM CDT Rule Out COVID-19 03/07/2023 03/07/2023 03/07/2023 1:20 PM CDT Assessment Noted Time PHQ-9 Depression Total Score: 6 09/30/19 3:25 PM CDT documented as of this encounter Care Teams Faculty Head Relationship Specialty Start Date End Date Marija Edgar APRN PATIENT BILLER PCP - General Nurse Practitioner 04/30/20 04/14/23 Esha Grimm PA-C [address] [place] [phone] PCP - General Family Medicine 05/04/23 Lita Oseguera Personal Advocate & Liaison (PAL) 02/28/20 03/27/23 Chanelle Mccann APRN CNM [address] [address] Assigned OBGYN Provider 05/02/2005/09 Kyara De La Fuente, VJ Specialty Metalizing Machine Operator Neurology 06/04/20 03/05/21 Marija Edgar APRN PATIENT BILLER Assigned PCP 06/08/20 04/29/23 Mynor Broussard MD [address] [facility] [address] 500 [place], [place] [address] Assigned Surgical Provider 06/01/20 11/28/21 Keisha Dotson MD 909 [place], [place] [address] Assigned Neuroscience Provider 06/04/20 04/01/23 Stacey Briones, [facility] Lead Metalizing Machine Operator Primary Care - CC 08/11/2012/30 Galo Burrell MD Assigned Heart and Vascular Provider 10/05/20 04/02/22 Lesley Moody, [facility] Community Health Worker 10/23/2012/30 Meredith Bedoya Financial Resource Worker 10/23/20 11/23/20 Cristina Wood Financial Resource Worker 02/09/21 02/09/21 Diana Desir, [facility] 3033 [place] [address] Pharmacist Pharmacist 04/17/21 Rain Galaviz PA-C [address] [facility] [place] [facility] [address] [place] [address] Physician Airport Guide Dermatology 04/28/21 Summer Lara MD [address] [place] [address] Assigned OBGYN Provider 05/10/2105/23 Summer Lara MD [address] [place] [address] Assigned OBGYN Provider 05/31/21 2 Summer Lara MD [address] [place] [address] Assigned OBGYN Provider 05/24/2105/30 Tavia Wyatt MD [address] [place] [address] Dermatology 07/14/21 Johnny Murillo MD [address] [facility] [address] [place] [address] Assigned Musculoskeletal Provider 08/30/21 03/17/22 Erica Farrell APRN PATIENT BILLER [address] [facility] [address] [place] [address] Nurse Practitioner Cardiovascular Disease 09/09/21 Teresita Bean [facility] [address] [place] [address] Pharmacist Pharmacist 09/24/21 09/29/21 Tavia Wyatt MD Assigned Surgical Provider 11/29/21 05/07/22 [facility] [address] [place] [address] Assigned MTM Pharmacist 01/02/22 Rich Barrett MD [address] [facility] [place] [address] Physician Ophthalmology 01/21/22 Neil Kent MD 500 [place] [address] Dermatology 02/24/22 Roney Story DPM [address] [facility] [address] [place] [address] Assigned Musculoskeletal Provider 03/20/22 08/13/22 Erica Farrell APRN PATIENT BILLER 1700 [place] [address] Assigned Heart and Vascular Provider 04/03/22 04/16/22 Diana Desir, [facility] [address] [place] [address] Assigned MTM Pharmacist 04/07/22 Jelena David OD [address] [facility] [place] [address] Assigned Surgical Provider 05/08/22 10/08/22 Galo Burrell MD Assigned Heart and Vascular Provider 04/17/22 06/11/22 Livan Sharif MD [address] [place] [address] Cardiovascular Disease 05/14/22 Livan Sharif MD [address] [place] [address]37[address] Assigned Heart and Vascular Provider 06/12/22 07/23/22 Catherine Cm MD [address] [place] 7[address]6400 [place] [address] Cardiovascular Disease 07/21/22 Valery Veronica PA-C [address] [place] [address] Physician Airport Guide Dermatology 07/21/22 Catherine Cm MD [address] [address] Assigned Heart and Vascular Provider 07/24/22 11/05/22 Johnny Murillo MD [address] [place] [address] Assigned Musculoskeletal Provider 08/14/22 10/08/22 Brea Quinn APRN PATIENT BILLER [address] [place] [address] 950945 Nurse Practitioner Dermatology 09/21/22 Brea Quinn APRN PATIENT BILLER [address] [place] [address] Assigned Surgical Provider 10/09/22 [place] [address] [address] Assigned Musculoskeletal Provider 10/09/22 Livan Sharif MD 6[address] [facility] [address] [place] [phone] [place] [address] Assigned Heart and Vascular Provider 11/06/22 11/12/22 Catherine Cm MD [address] [place] [address] Assigned Heart and Vascular Provider 11/13/22 05/27/23 Sydnie Martinez RN Personal Advocate & Liaison (PAL) Family Medicine 03/28/23 07/31/23 Alfonso Renteria MD [facility] [facility] [address] [place] [address] Assigned Neuroscience Provider 04/02/23 Cheng Todd PA-C [address] [place], [place] 234[address] Assigned PCP 04/30/23 07/15/23 Radha Lomeli APRN PATIENT BILLER [address] [place] [address] Assigned Heart and Vascular Provider 05/28/23 Jelena David OD [address] [facility] [place] [place] [address] Ophthalmology 06/15/23 Pao Joseph RN Personal Advocate & Liaison (PAL) Nurse 08/01/23 Esha Grimm PA-C [address] [place] [address] Assigned PCP 07/16/23 Valery Veronica PA-C [address] [place] [address] 4807[address] Physician Airport Guide Dermatology 09/19/23 Rey Tay MD 9 [place] [address] Gastroenterology 09/20/23 Rocky Zepeda DO [address] [place] [address] Physician Gastroenterology 09/20/23 Philip Dumont MD [address] [place] [address] Physician Ophthalmology 09/22/23 documented as of this encounter
--- OUTSIDE RECORDS SUMMARY | 2023-10-15 21:58 | XMS_ITS | Encounter Summary ---
Author Name Unknown Organization [facility] Address [address] [place] [address] Care Team Providers Care Ski Maker Name Role Phone Lita Oseguera Unavailable Unavailable Marija Edgar APRN SPINNING BATH PATROLLER Primary Care Provider Chanelle Gutierrez MOTION PICTURE OPERATOR CNM Unavailab le Kyara De La Fuente RN Unavailable [phone] Marija Edgar APRN SPINNING BATH PATROLLER Unavailable Unavail able Mynor Broussard MD Unavailable [phone] Keisha Dotson MD Unavailable Stacey Briones METAL SASH SETTER Unavailable Galo Burrell MD Unavailable Unavailable Lesley Moody CHW Unavailable Meredith Bedoya Unavailable Unavailable Cristina Wood Unavailable Diana Desir [facility] Unavailable Rain Galaviz PA-C Unavailable Summer Lara MD Unavailable [phone] Summer Lara MD Unavailable [phone] Summer Lara MD Unavailable [phone] Tavia Wyatt MD Unavailable Unavailable Johnny Murillo MD Unavailable Erica Farrell MOTION PICTURE OPERATOR SPINNING BATH PATROLLER Unavailable Vikas Teresita Jesus Watson [facility] Unavailable Tavia Wyatt MD Unavailable Unavailable Kendrick Desirelle Stanislav [facility] Unavailable [phone] Rich Barrett MD Unavailable Neil Kent MD Unavailable Roney Story DPM Unavailable [phone] Bud, Erica Guidry MOTION PICTURE OPERATOR SPINNING BATH PATROLLER Unavailable + Thang Diana Stanislav [facility] Unavailable [phone] Tommy Davidmao Garcia OD Unavailable Galo Burrell MD Unavailable Unavailable Livan Sharif MD Unavailable + Livan Sharif MD Unavailable + Catherine Cm MD Unavailable + Valery Veronica-C Unavailable [phone] Catherine Cm MD Unavailable + Johnny Murillo MD Unavailable +[phone]- Brea Quinn MOTION PICTURE OPERATOR SPINNING BATH PATROLLER Unavailable [phone] Brea Quinn MOTION PICTURE OPERATOR SPINNING BATH PATROLLER Unavailable [phone] Jose Francisco Johnson MD Unavailable Livan Sharif MD Unavailable + Catherine Cm MD Unavailable + Sydnie Martinez RN Unavailable Unavailable Alfonso Renteria MD Unavailable [phone] Esha Grimm PA-C Primary Care Provider Cheng Todd PA-C Unavailable Armani Radha Sia JACOBS SPINNING BATH PATROLLER Unavailable [phone] Jelena David Radha OD Unavailable Pao Joseph RN Unavailable Unavailable Alfa Eshaann Medina PA-C Unavailable [phone] Encounter Details Date Type Department Care Team (Late st Contact Info) Description 11/21/[address] [address] Marija Edgar APRN CNP Social History Tobacco Use Types Packs/Day Years [...] How often do you attend chur or mu-ism services? 1 to 4 times [...] Date Recorded PHQ-2 Score 0 06/20/2023 [facility]ational Stress Questionnaire [...] exercise at this level? 30 min 03/10/2023 Gustavus Depression Scale Answer Date Recorded Gustavus Depression Score 5 01/14/2021 Last EPDS Self [...] encounter Miscellaneous Notes * Telephone Encounter - Magdalena Malave RN - 11/21/2020 11:38 AM CDT Prescription approved per [facility] Refill Protocol. Magdalena Malave RN on 11/21/2020 at 11:38 AM documented in this encounter Plan of Treatment Upcoming Encounters Date Type Department Care Team (Late st Contact Info) Description 10/25/2023 11:30 AM CDT Virtual Visit [facility] [address] [phone] Nelly Mes[address], RD [address] [place] [address] 11/03/2023 8:00 AM CDT Office Visit [address] [phone] Valery Veronica PA-C [address] [place] [address] 11/29/2023 8:00 AM CDT Office Visit [facility] [phone] [place] [phone] Esha Grimm PA-C [address] [place] [address] 01/02/2024 8:00 AM CDT Office Visit [facility] [address] [place] [phone] Lauren Claudio PA-C [id number] [place] [address] Kelli Perez MD [address] [place], [place] 399894 documented as of this encounter Visit Diagnoses Diagnosis Anxiety Anxiety state, unspecified Palpitations documented in this encounter Additional Health Concerns Infection Onset Date Last Indicated Resolved Time Rule Out COVID-19 05/11/2021 05/11/2021 05/13/2021 10:18 AM CDT Rule Out COVID-19 07/13/2021 07/13/2021 07/14/2021 3:04 PM FANCY NEEDLEWORKER Rule Out COVID-19 07/18/2021 07/18/2021 07/20/2021 1:56 PM FANCY NEEDLEWORKER COVID-19 07/18/2021 07/18/2021 08/08/2021 11:3 9 PM FANCY NEEDLEWORKER Rule Out COVID-19 12/18/2021 12/18/2021 12/19/2021 11:34 AM CDT Rule Out COVID-19 02/24/2022 02/24/2022 02/25/2022 1:08 PM CDT Rule Out COVID-19 04/26/2022 04/26/2022 04/26/2022 6:47 AM CDT Rule Out COVID-19 05/17/2022 05/17/2022 05/17/2022 10:20 PM FANCY NEEDLEWORKER Rule Out COVID-19 06/09/2022 06/09/2022 06/09/2022 9:35 AM FANCY NEEDLEWORKER COVID-19 06/09/2022 06/09/2022 06/30/2022 11:4 1 PM FANCY NEEDLEWORKER Rule Out COVID-19 11/10/2022 11/10/2022 11/11/2022 12:17 PM CDT Rule Out COVID-19 03/07/2023 03/07/2023 03/07/2023 1:20 PM CDT Assessment Noted Time PHQ-9 Depression Total Score: 6 09/30/19 3:25 PM CDT documented as of this encounter Care Teams Ski Maker Relationship Specialty Start Date End Date Marija Edgar APRN SPINNING BATH PATROLLER PCP - General Nurse Practitioner 04/30/20 04/14/23 Esha Grimm PA-C [address] [place] [phone] PCP - General Family Medicine 05/04/23 Lita Oseguera Personal Advocate & Liaison (PAL) 02/28/20 03/27/23 Chanelle Mccann APRN CNM [address]252 [facility] 200 [place] [address] Assigned OBGYN Provider 05/02/2005/09 Kyara De La Fuente, RN Specialty Computer Operations Analyst Neurology 06/04/20 03/05/21 Marija Edgar APRN SPINNING BATH PATROLLER Assigned PCP 06/08/20 04/29/23 Mynor Broussard MD 6363 [facility] 500 [place] [address] Assigned Surgical Provider 06/01/20 11/28/21 Keisha Dotson MD 909 [place], [place] 845935 Assigned Neuroscience Provider 06/04/20 04/01/23 Stacey Briones, METAL SASH SETTER Lead Computer Operations Analyst Primary Care - CC 08/11/2012/30 Galo Burrell MD Assigned Heart and Vascular Provider 10/05/20 04/02/22 Lesley Mooyd, [facility] Community Health Worker 10/23/2012/30 Meredith Bedoya Financial Resource Worker 10/23/20 11/23/20 Nina Cristina Financial Resource Worker 02/09/21 02/09/21 Diana Desir, [facility] [address] [place] [address] Pharmacist Pharmacist 04/17/21 Rain Galaviz PA-C [address] [place] [address] DR [address] [place], [place] [phone] Physician Water Carter Dermatology 04/28/21 Summer Lara MD 606 [facility] [place] [place] 824[place] Assigned OBGYN Provider 05/10/2105/23 Summer Lara MD 606 24 [place], [place] 759694 Assigned OBGYN Provider 05/31/21 2 Summer Lara MD 606 24 [place] [address] Assigned OBGYN Provider 05/24/2105/30 Tavia Wyatt MD 606 [place] [address] Dermatology 07/14/21 Johnny Murillo MD [address] [facility] [address] [place] [address] Assigned Musculoskeletal Provider 08/30/21 03/17/22 Erica Farrell APRN SPINNING BATH PATROLLER [address] [facility] [address] [place] [address] Nurse Practitioner Cardiovascular Disease 09/09/21 Teresita Bean [facility] [address] [place] [address] Pharmacist Pharmacist 09/24/21 09/29/21 Tavia Wyatt MD Assigned Surgical Provider 11/29/21 05/07/22 Diana Desir [facility] [address] [place] [address] Assigned MTM Pharmacist 01/02/22 Rich Barrett MD [address] 434515 Physician Ophthalmology 01/21/22 Neil Kent MD 500 [place] [address] Dermatology 02/24/22 Roney Story DPM [address] [facility] [address] [place] [address] Assigned Musculoskeletal Provider 03/20/22 08/13/22 Erica Farrell APRN SPINNING BATH PATROLLER 1700 [place] [address] Assigned Heart and Vascular Provider 04/03/22 04/16/22 Diana Desir [facility] 3033 [place] [address] Assigned MTM Pharmacist 04/07/22 Jelena David OD 3305 [facility] [place] [address] Assigned Surgical Provider 05/08/22 10/08/22 Galo Burrell MD Assigned Heart and Vascular Provider 04/17/22 06/11/22 Livan Sharif MD [address] [place] 306705 Cardiovascular Disease 05/14/22 Livan Sharif MD [address], [address] [place] [address] Assigned Heart and Vascular Provider 06/12/22 07/23/22 Catherine Cm MD [address] [place] 729195 Cardiovascular Disease 07/21/22 Valery Veronica, PA-C 909 [place], [place] 954295 Physician Water Carter Dermatology 07/21/22 Catherine Cm MD [address] [place] 400725 Assigned Heart and Vascular Provider 07/24/22 11/05/22 Johnny Murillo MD [facility] [address] [place] [address] 467164 Assigned Musculoskeletal Provider 08/14/22 10/08/22 Brea Quinn APRN SPINNING BATH PATROLLER 500 [place] [address] Nurse Practitioner Dermatology 09/21/22 Brea Quinn APRN SPINNING BATH PATROLLER 6401 [place] [address] Assigned Surgical Provider 10/09/22 [place] [address] [facility] 300 [place] [address] Assigned Musculoskeletal Provider 10/09/22 Livan Sharif MD [address] [place] [address] Assigned Heart and Vascular Provider 11/06/22 11/12/22 Catherine Cm MD [address] [place] [address] Assigned Heart and Vascular Provider 11/13/22 05/27/23 Sydnie Martinez RN Personal Advocate & Liaison (PAL) Family Medicine 03/28/23 07/31/23 Alfonso Renteria MD 5775 [facility] 200 [place], [place] 395966 Assigned Neuroscience Provider 04/02/23 Cheng Todd PA-C [address] [place] [address] Assigned PCP 04/30/23 07/15/23 Radha Lomeli APRN SPINNING BATH PATROLLER [address] [place] [address] Assigned Heart and Vascular Provider 05/28/23 Jelena David OD 3305 [facility] [place] [address] Ophthalmology 06/15/23 Pao Joseph, VJ Personal Advocate & Liaison (PAL) Nurse 08/01/23 Esha Grimm, PA-C [address] [facility] [phone] Assigned PCP 07/16/23 documented as of this encounter
--- OUTSIDE RECORDS SUMMARY | 2023-10-15 21:59 | XMS_ITS | Encounter Summary ---
Author Name Unknown Organization [facility] Address [address] [place] [address] Care Team Providers Care Conservation Policy Analyst Name Role Phone Lita Oseguera Unavailable Unavailable Marija Edgar APRN ENVIRONMENTAL MARKETING REPRESENTATIVE Primary Care Provider [facility] SYSTEM OPERATION SUPERINTENDENT CNM Unavailab le Kyara De La Fuente RN Unavailable [phone] Marija Edgar APRN ENVIRONMENTAL MARKETING REPRESENTATIVE Unavailable Unavail able Mynor Broussard MD Unavailable [phone] Keisha Dotson MD Unavailable Mary Mejia Unavailable Unavailable Stacey Briones FUNCTIONAL MENTAL DISABILITY TEACHER Unavailable Lesley Moody CHW Unavailable Mary Mejia Unavailable Unavailable Lita Oseguera Unavailable Unavailable Galo Burrell MD Unavailable Unavailable Cristina Wood Unavailable Lesley Moody CHW Unavailable Meredith Bedoya Unavailable Unavailable Cristina Wood Unavailable Diana Desir [facility] Unavailable Rain Galaviz PA-C Unavailable Summer Lara MD Unavailable [phone] Summer Lara MD Unavailable [phone] Summer Lara MD Unavailable + [phone] Tavia Wyatt MD Unavailable Unavailable Johnny Murillo MD Unavailable +1- Erica Farrell SYSTEM OPERATION SUPERINTENDENT ENVIRONMENTAL MARKETING REPRESENTATIVE Unavailable + VikasTeresita RPH Unavailable Tavia Wyatt MD Unavailable Unavailable Diana Desir [facility] Unavailable [phone] Rich Barrett MD Unavailable [phone] Neil Kent MD Unavailable Roney Story DPM Unavailable [phone] Erica Farrell SYSTEM OPERATION SUPERINTENDENT ENVIRONMENTAL MARKETING REPRESENTATIVE Unavailable + Diana Desir [facility] Unavailable [phone] Jelena David OD Unavailable [phone] Galo Burrell MD Unavailable Unavailable Livan Sharif MD Unavailable + Livan Sharif MD Unavailable + Catherine Cm MD Unavailable + Valery Veronica PA-C Unavailable + [phone] Catherine Cm MD Unavailable + Johnny Murillo MD Unavailable +1- Brea Quinn APRN ENVIRONMENTAL MARKETING REPRESENTATIVE Unavailable [phone] Brea Quinn SYSTEM OPERATION SUPERINTENDENT ENVIRONMENTAL MARKETING REPRESENTATIVE Unavailable [phone] Jose Francisco Johnson MD Unavailable Livan Sharif MD Unavailable + Catherine Cm MD Unavailable + Sydnie Martinez RN Unavailable Unavailable Alfonso Renteria MD Unavailable [phone] Esha Grimm PA-C Primary Care Provider [phone] Cheng Todd PA-C Unavailable Radha Lomeli APRN ENVIRONMENTAL MARKETING REPRESENTATIVE Unavailable [phone] Jelena David OD Unavailable [phone] Pao Joseph RN Unavailable Unavailable Esha Grimm PA-C Unavailable [phone] Valery Veronica PA-C Unavailable Rey Tay MD Unavailable Rocky Zepeda DO Unavailable Philip Dumont MD Unavailable [phone] Encounter Details Date Type Department Care Team (Late st Contact Info) Description 08/07/2020 [facility] Medical Advice [facility] Care Coordination [address] [place] [phone] Lesley Moody, [facility] Social History Tobacco Use Types Packs/Day Years [...] you attend chur ch or gnosticist services? More than 4 times per year [...] PHQ-2 Answer Date Recorded PHQ-2 Score 3 06/24/2020 [facility] - Occupational Stress Questionnaire Answer Date [...] in a nursing home (including now)? No 08/11/2020 Education Answer Date [...] have Coronavirus / COVID-19? No / Unsure 08/06/2020 2:03 PM ACID DUMPER documented as of this encounter Plan of Treatment Upcoming Encounters Date Type Department Care Team (Late st Contact Info) Description 10/25/2023 11:30 AM CDT Virtual Visit [facility] [address] [place] [address] Nelly Mes[address], RD 909 [place] [address] 11/03/2023 8:00 AM CDT Office Visit [address] [address] Valery Veronica PA-C 909 [place] [address] 11/29/2023 8:00 AM CDT Office Visit [facility] [address] [place] [phone] Esha Grimm PA-C [address] [place] [address] 01/02/2024 8:00 AM CDT Office Visit [facility] [address] [place] [phone] Lauren Claudio PA-C [address] [place] [address] Kelli Perez MD [address] 4545[address] documented as of this encounter Visit Diagnoses Not on filedocumented in this encounter Additional Health Concerns Infection Onset Date Last Indicated Resolved Time Rule Out COVID-19 08/30/2020 08/30/2020 08/30/2020 5:05 PM ACID DUMPER Rule Out COVID-19 09/24/2020 09/24/2020 09/24/2020 9:24 AM CDT Rule Out COVID-19 11/05/2020 11/05/2020 11/06/2020 1:09 PM CDT Rule Out COVID-19 05/11/2021 05/11/2021 05/13/2021 10:18 AM CDT Rule Out COVID-19 07/13/2021 07/13/2021 07/14/2021 3:04 PM ACID DUMPER Rule Out COVID-19 07/18/2021 07/18/2021 07/20/2021 1:56 PM ACID DUMPER COVID-19 07/18/2021 07/18/2021 08/08/2021 11:3 9 PM ACID DUMPER Rule Out COVID-19 12/18/2021 12/18/2021 12/19/2021 11:34 AM CDT Rule Out COVID-19 02/24/2022 02/24/2022 02/25/2022 1:08 PM CDT Rule Out COVID-19 04/26/2022 04/26/2022 04/26/2022 6:47 AM CDT Rule Out COVID-19 05/17/2022 05/17/2022 05/17/2022 10:20 PM ACID DUMPER Rule Out COVID-19 06/09/2022 06/09/2022 06/09/2022 9:35 AM ACID DUMPER COVID-19 06/09/2022 06/09/2022 06/30/2022 11:4 1 PM ACID DUMPER Rule Out COVID-19 11/10/2022 11/10/2022 11/11/2022 12:17 PM CDT Rule Out COVID-19 03/07/2023 03/07/2023 03/07/2023 1:20 PM CDT Assessment Noted Time PHQ-9 Depression Total Score: 9 06/25/20 20 7:04 AM ACID DUMPER documented as of this encounter Care Teams Conservation Policy Analyst Relationship Specialty Start Date End Date Marija Edgar APRN ENVIRONMENTAL MARKETING REPRESENTATIVE PCP - General Nurse Practitioner 04/30/20 04/14/23 Esha Grimm PAUcheC [address] [place] [phone] PCP - General Family Medicine 05/04/23 Lita Oseguera Personal Advocate & Liaison (PAL) 02/28/20 03/27/23 Chanelle Mccann APRN CNM [address] [place] [address] Assigned OBGYN Provider 05/02/2005/09 Kyara De La Fuente, VJ Specialty Cut In Worker Neurology 06/04/20 03/05/21 Marija Edgar APRN ENVIRONMENTAL MARKETING REPRESENTATIVE Assigned PCP 06/08/20 04/29/23 Mynor Broussard MD [address] [address] Assigned Surgical Provider 06/01/20 11/28/21 Keisha Dotson MD 909 [place], [place] 258165 Assigned Neuroscience Provider 06/04/20 04/01/23 Mary Mejia Financial Resource Worker 08/07/20 08/21/20 Stacey Briones, [facility] Lead Cut In Worker Primary Care - CC 08/11/2012/30 Lesley Moody, [facility] Community Health Worker 08/11/2010/01 Mary Mejia Financial Resource Worker 09/02/20 10/06/20 Lita Oseguera Personal Advocate & Liaison (PAL) Family Medicine 09/10/20 09/21/20 Galo Burrell MD Assigned Heart and Vascular Provider 10/05/20 04/02/22 Cristina Wood Financial Resource Worker 10/07/20 10/14/20 Lesley Moody, [facility] Community Health Worker 10/23/2012/30 Meredith Bedoya Financial Resource Worker 10/23/20 11/23/20 Cristina Wood Financial Resource Worker 02/09/21 02/09/21 Diana Desir, [facility] [address] [place] [address] Pharmacist Pharmacist 04/17/21 Rain Galaviz PA-C [address] [place] [address] DR AR[address] [facility] [place] [address] Physician Debubblizer Dermatology 04/28/21 Summer Lara MD [address] [place] [address] Assigned OBGYN Provider 05/10/2105/23 Summer Lara MD [address] [place] [address] Assigned OBGYN Provider 05/31/21 2 Summer Lara MD [address] [place] [address] Assigned OBGYN Provider 05/24/2105/30 Tavia Wyatt MD [address] [place] [address] Dermatology 07/14/21 Johnny Murillo MD [address] [facility] [address] [place] [address] Assigned Musculoskeletal Provider 08/30/21 03/17/22 Erica Farrell APRN ENVIRONMENTAL MARKETING REPRESENTATIVE 6[address] [facility] [address] [place] [address] Nurse Practitioner Cardiovascular Disease 09/09/21 Teresita Bean, [facility] [address] [place] [address] Pharmacist Pharmacist 09/24/21 09/29/21 Tavia Wyatt MD Assigned Surgical Provider 11/29/21 05/07/22 Diana Desir, [facility] [address] [place] [address] Assigned MTM Pharmacist 01/02/22 Rich Barrett MD [address] [place] [address] Physician Ophthalmology 01/21/22 Neil Kent MD 500 [place] [address] Dermatology 02/24/22 Roney Story DPM 16420 [facility] [address] [place] [address] Assigned Musculoskeletal Provider 03/20/22 08/13/22 Erica Farrell APRN ENVIRONMENTAL MARKETING REPRESENTATIVE [address] [place] [address] Assigned Heart and Vascular Provider 04/03/22 04/16/22 Diana Desir, [facility] [address] [place] [address] Assigned MTM Pharmacist 04/07/22 Jelena David OD [address] [place] [address] [place] [address] Assigned Surgical Provider 05/08/22 10/08/22 Galo Burrell MD Assigned Heart and Vascular Provider 04/17/22 06/11/22 Livan Sharif MD [address] [place] 491645 Cardiovascular Disease 05/14/22 Livan Sharif MD [address] [place] [address] Assigned Heart and Vascular Provider 06/12/22 07/23/22 Catherine Cm MD [address] [place] 1768[address] Cardiovascular Disease 07/21/22 Valery Veronica, PA-C [address] [place] [address] 588945 Physician Debubblizer Dermatology 07/21/22 Catherine Cm MD [address] [facility] [address] [place] 119855 Assigned Heart and Vascular Provider 07/24/22 11/05/22 Johnny Murillo MD [address] [place] [address] 316164 Assigned Musculoskeletal Provider 08/14/22 10/08/22 Brea Quinn APRN ENVIRONMENTAL MARKETING REPRESENTATIVE [address] [place] [address] [phone] Nurse Practitioner Dermatology 09/21/22 Brea Quinn APRN ENVIRONMENTAL MARKETING REPRESENTATIVE [address] [place] [address] [place] 995182 Assigned Surgical Provider 10/09/22 [place] [address] [facility] [address] [place] [address] Assigned Musculoskeletal Provider 10/09/22 Livan Sharif MD [address], [facility] [address] [place] [address]6535 Assigned Heart and Vascular Provider 11/06/22 11/12/22 Catherine Cm MD [address] [place] [address] Assigned Heart and Vascular Provider 11/13/22 05/27/23 Sydnie Martinez RN Personal Advocate & Liaison (PAL) Family Medicine 03/28/23 07/31/23 Alfonso Renteria MD 5775 [facility] 200 [place], [place] 617436 Assigned Neuroscience Provider 04/02/23 Cheng Todd PA-C [address] [place] [address] Assigned PCP 04/30/23 07/15/23 Radha Lomeli, SYSTEM OPERATION SUPERINTENDENT ENVIRONMENTAL MARKETING REPRESENTATIVE [address] [place] [address]39[address] Assigned Heart and Vascular Provider 05/28/23 Jelena David OD [address] [facility] [place] [address] Ophthalmology 06/15/23 Pao Joseph, RN Personal Advocate & Liaison (PAL) Nurse 08/01/23 Esha Grimm PA-C [address] [place] [phone] Assigned PCP 07/16/23 Valery Veronica PA-C 9 [place] [address] Physician Debubblizer Dermatology 09/19/23 Rey Tay MD [address] [place] [address] Gastroenterology 09/20/23 Rocky Zepeda DO [address] [place] [address] 364985 Physician Gastroenterology 09/20/23 Philip Dumont MD [address] [place] [address] 563655 Physician Ophthalmology 09/22/23 documented as of this encounter
--- OUTSIDE RECORDS SUMMARY | 2023-10-15 21:59 | XMS_ITS | Encounter Summary ---
Author Name Unknown Organization [facility] Address [address] [place] [address] Care Team Providers Care Carpet Inspector Name Role Phone Lita Oseguera Unavailable Unavailable Marija Edgar APRN DUMPCART DRIVER Primary Care Provider Chanelle [facility] [place] [employer] CNM Unavailab le Kyara De La Fuente RN Unavailable [phone] Marija Edgar APRN DUMPCART DRIVER Unavailable Unavail able Mynor Broussard MD Unavailable [phone] Keisha Dotson MD Unavailable Mary Mejia Unavailable Unavailable Stacey Briones PARTS ASSEMBLER Unavailable Lesley Moody CHW Unavailable [phone] Mary Mejia Unavailable Unavailable Lita Oseguera Unavailable Unavailable Galo Burrell MD Unavailable Unavailable Cristina Wood Unavailable Lesley Moody CHW Unavailable Meredith Bedoya Unavailable Unavailable Cristina Wood Unavailable Diana Desir [facility] Unavailable Rain Galaviz PA-C Unavailable Summer Lara MD Unavailable [phone] Summer Lara MD Unavailable +[phone] Summer Lara MD Unavailable + [phone] Tavia Wyatt MD Unavailable Unavailable Johnny Murillo MD Unavailable +1- Erica Farrell [employer] DUMPCART DRIVER Unavailable + VikasTeresita RPH Unavailable Tavia Wyatt MD Unavailable Unavailable Diana Desir [facility] Unavailable [phone] Rich Barrett MD Unavailable [phone] Neil Kent MD Unavailable Roney Story DPM Unavailable [phone] Erica Farrell [employer] DUMPCART DRIVER Unavailable + Diana Desir [facility] Unavailable [phone] Jelena David OD Unavailable [phone] Galo Burrell MD Unavailable Unavailable Livan Sharif MD Unavailable + Livan Sharif MD Unavailable + Catherine Cm MD Unavailable + Valery Veronica PA-C Unavailable + [phone] Catherine Cm MD Unavailable + Johnny Murillo MD Unavailable +1- Brea Quinn APRN DUMPCART DRIVER Unavailable [phone] Brea Quinn [employer] DUMPCART DRIVER Unavailable [phone] Jose Francisco Johnson MD Unavailable Livan Sharif MD Unavailable + Catherine Cm MD Unavailable + Sydnie Martinez RN Unavailable Unavailable Alfonso Renteria MD Unavailable [phone] Esha GrimmC Primary Care Provider [phone] Cheng ToddC Unavailable Radha Lomeli APRN DUMPCART DRIVER Unavailable Jelena David OD Unavailable Pao Joseph RN Unavailable Unavailable Esha Grimm PA-C Unavailable [phone] Valery VeronicaC Unavailable Rey Tay MD Unavailable Rocky Zepeda DO Unavailable Philip Dumont MD Unavailable [phone] Encounter Details Date Type Department Care Team (Late st Contact Info) Description 08/01/2020 [facility] Medical Advice [address] [address] Marija Edgar, ARLENE DUMPCART DRIVER Social History Tobacco Use Types Packs/Day Years Used Date Smoking Tobacco: Former Cigarettes 1 Q uit: 12/07/2019 Other Smokeless Tobacco: Never Alcohol Use Standard Drinks/Week Comments Not Currently 0 (1 standard drink = 0.6 oz pur e alcohol) PHQ-2 Answer Date Recorded PHQ-2 Score 3 06/24/2020 Comments Yes Sex and Gender Information Value Date Recorded Sex Assigned at Female 03/02/2021 5:45 PM CDT Gender Identity Female 03/02/2021 5:45 PM CDT Sexual Orientation Straight 02/28/2020 12 :51 AM CDT COVID-19 Exposure Response Date Recorded In the last month, have you been in contact with someone who was confirmed or suspected to have Coronavirus / COVID-19? No / Unsure 07/30/2020 4:53 PM NEEDLE LEADER documented as of this encounter Miscellaneous Notes * Telephone Encounter - Estephania Black RN - 08/01/2020 9:11 AM NEEDLE LEADER Schedule patient for Zio Patch. Detailed message left on phone and through [employer]. Estephania Black, RN Flex LE LEADER * Telephone Encounter - Marija Edgar APRN CNP - 08/01/2020 8:46 AM NEEDLE LEADER Please help patient schedule her zio patch. This order has been in place since 05/2020 and a new order was placed this week. LE LEADER documented in this encounter Plan of Treatment Upcoming Encounters Date Type Department Care Team (Late st Contact Info) Description 10/25/2023 11:30 AM CDT Virtual Visit [facility] [address] [place] [address] Nelly Mesa, RD [address] [place] [address] 11/03/2023 8:00 AM CDT Office Visit [facility] [address] [place] [phone] Valery Veronica PA-C [address] [place] [address] 11/29/2023 8:00 AM CDT Office Visit [facility] [address] [place] [phone] Esha Grimm PA-C [address] [place] [address] 01/02/2024 8:00 AM CDT Office Visit [facility] [place] [address] [place] [phone] Lauren Claudio PA-C [address] [place] [address] Kelli Perez MD [address] [address] documented as of this encounter Visit Diagnoses Not on filedocumented in this encounter Additional Health Concerns Infection Onset Date Last Indicated Resolved Time Rule Out COVID-19 08/30/2020 08/30/2020 08/30/2020 5:05 PM NEEDLE LEADER Rule Out COVID-19 09/24/2020 09/24/2020 09/24/2020 9:24 AM CDT Rule Out COVID-19 11/05/2020 11/05/2020 11/06/2020 1:09 PM CDT Rule Out COVID-19 05/11/2021 05/11/2021 05/13/2021 10:18 AM CDT Rule Out COVID-19 07/13/2021 07/13/2021 07/14/2021 3:04 PM NEEDLE LEADER Rule Out COVID-19 07/18/2021 07/18/2021 07/20/2021 1:56 PM NEEDLE LEADER COVID-19 07/18/2021 07/18/2021 08/08/2021 11:3 9 PM NEEDLE LEADER Rule Out COVID-19 12/18/2021 12/18/2021 12/19/2021 11:34 AM CDT Rule Out COVID-19 02/24/2022 02/24/2022 02/25/2022 1:08 PM CDT Rule Out COVID-19 04/26/2022 04/26/2022 04/26/2022 6:47 AM CDT Rule Out COVID-19 05/17/2022 05/17/2022 05/17/2022 10:20 PM NEEDLE LEADER Rule Out COVID-19 06/09/2022 06/09/2022 06/09/2022 9:35 AM NEEDLE LEADER COVID-19 06/09/2022 06/09/2022 06/30/2022 11:4 1 PM NEEDLE LEADER Rule Out COVID-19 11/10/2022 11/10/2022 11/11/2022 12:17 PM CDT Rule Out COVID-19 03/07/2023 03/07/2023 03/07/2023 1:20 PM CDT Assessment Noted Time PHQ-9 Depression Total Score: 9 06/25/20 7:04 AM NEEDLE LEADER documented as of this encounter Care Teams Carpet Inspector Relationship Specialty Start Date End Date Marija Edgar APRN DUMPCART DRIVER PCP - General Nurse Practitioner 04/30/20 04/14/23 Esha Grimm PA-C [address] [place] [phone] PCP - General Family Medicine 05/04/23 Lita Oseguera Personal Advocate & Liaison (PAL) 02/28/20 03/27/23 [place] [address] [facility] 200 [place] [address] Assigned OBGYN Provider 05/02/2005/09 Kyara De La Fuente, RN Specialty Intermediate Manager Neurology 06/04/20 03/05/21 Marija Edgar APRN DUMPCART DRIVER Assigned PCP 06/08/20 04/29/23 Mynor Broussard MD 6363 [facility] 500 [place] [address] Assigned Surgical Provider 06/01/20 11/28/21 Keisha Dotson MD 909 [place] [address] Assigned Neuroscience Provider 06/04/20 04/01/23 Mary Mejia Financial Resource Worker 08/07/20 08/21/20 Stacey Briones, PARTS ASSEMBLER Lead Intermediate Manager Primary Care - CC 08/11/2012/30 Lesley Moody, [facility] Community Health Worker 08/11/2010/01 Mary Mejia Financial Resource Worker 09/02/20 10/06/20 Lita Oseguera Personal Advocate & Liaison (PAL) Family Medicine 09/10/20 09/21/20 Galo Burrell MD Assigned Heart and Vascular Provider 10/05/20 04/02/22 Cristina Wood Financial Resource Worker 10/07/20 10/14/20 Lesley Moody, [facility] Community Health Worker 10/23/2012/30 Meredith Bedoya Financial Resource Worker 10/23/20 11/23/20 Cristina Wood Financial Resource Worker 02/09/21 02/09/21 Diana Desir, [facility] [address] [place], [place] [address] Pharmacist Pharmacist 04/17/21 Rain Galaviz PA-C [address] [place] [address] [address] [place], [place] [phone] Physician Senior Front End Developer Dermatology 04/28/21 Summer Lara MD [address] [place] [address] [phone] Assigned OBGYN Provider 05/10/2105/23 Summer Lara MD [address] [place] [address] [phone] Assigned OBGYN Provider 05/31/21 Summer Lara MD [address] [place] [address] Assigned OBGYN Provider 05/24/2105/30 Tavia Wyatt MD [address] [place] [address] Dermatology 07/14/21 Johnny Murillo MD [address] [place] [address] Assigned Musculoskeletal Provider 08/30/21 03/17/22 Erica Farrell APRN DUMPCART DRIVER [address] [facility] [address] [place], [place] 8856[address] Nurse Practitioner Cardiovascular Disease 09/09/21 Teresita Bean [facility] [address] [place], [place] [phone] Pharmacist Pharmacist 09/24/21 09/29/21 Tavia Wyatt MD Assigned Surgical Provider 11/29/21 05/07/22 [facility] [address] [place] [address] Assigned MTM Pharmacist 01/02/22 Rich Barrett MD [address] 494[address] Physician Ophthalmology 01/21/22 Neil Kent MD [address] [place] [address] [phone] Dermatology 02/24/22 Roney Story DPM [address] [facility] [address] [place] [address] Assigned Musculoskeletal Provider 03/20/22 08/13/22 Erica Farrell APRN DUMPCART DRIVER 1700 [place] [address] Assigned Heart and Vascular Provider 04/03/22 04/16/22 Diana Desir, [facility] [address] [place] [address] Assigned MTM Pharmacist 04/07/22 Jelena David OD [address] [facility] [place] [address] Assigned Surgical Provider 05/08/22 10/08/22 Galo Burrell MD Assigned Heart and Vascular Provider 04/17/22 06/11/22 Livan Sharif MD [address] [place] 323325 Cardiovascular Disease 05/14/22 Livan Sharif MD [address] [place] [address] Assigned Heart and Vascular Provider 06/12/22 07/23/22 Catherine Cm MD [address] [place] 284475 Cardiovascular Disease 07/21/22 Valery Veronica PA-C 909 [place], [place] 787695 Physician Senior Front End Developer Dermatology 07/21/22 Catherine Cm MD [address] [place] 128795 Assigned Heart and Vascular Provider 07/24/22 11/05/22 Johnny Murillo MD [facility] [address] 140234 Assigned Musculoskeletal Provider 08/14/22 10/08/22 Brea Quinn APRN DUMPCART DRIVER [address] [place] [address] [phone] Nurse Practitioner Dermatology 09/21/22 Brea Quinn APRN DUMPCART DRIVER [address] [place] [address] [phone] Assigned Surgical Provider 10/09/22 [place] [address] 448717 Assigned Musculoskeletal Provider 10/09/22 Livan Sharif MD [address] [place] 458635 Assigned Heart and Vascular Provider 11/06/22 11/12/22 Catherine Cm MD [address] [place] 586715 Assigned Heart and Vascular Provider 11/13/22 05/27/23 Sydnie Martinez, RN Personal Advocate & Liaison (PAL) Family Medicine 03/28/23 07/31/23 Alfonso Renteria MD [address] [facility] [address] 200 [place] [address] Assigned Neuroscience Provider 04/02/23 Cheng Todd PA-C [address] [place], [place] [phone] Assigned PCP 04/30/23 07/15/23 Radha Lomeli APRN DUMPCART DRIVER [address] [facility] [address] [place] [address] Assigned Heart and Vascular Provider 05/28/23 Jelena David OD [address] [facility] [place] [address] Ophthalmology 06/15/23 Pao Joseph, VJ Personal Advocate & Liaison (PAL) Nurse 08/01/23 Esha Grimm PAUcheC [address] [place] [phone] Assigned PCP 07/16/23 Valery Veronica PA-C [address] [place] [address] 698585 Physician Senior Front End Developer Dermatology 09/19/23 Rey Tay MD [address] [place], [place] 998715 Gastroenterology 09/20/23 Rocky Zepeda DO [address] [place] [address] 712785 Physician Gastroenterology 09/20/23 Philip Dumont MD [address] [place] [address] Physician Ophthalmology 09/22/23 documented as of this encounter
--- OUTSIDE RECORDS SUMMARY | 2023-10-15 21:59 | XMS_ITS | Encounter Summary ---
Author Name Unknown Organization [facility] Address [address] [place] [address] Care Team Providers Care Washcloth Folder Name Role Phone Lita Oseguera Unavailable Unavailable Marija Edgar APRN TRIMMER HELPER Primary Care Provider [facility] DIMENSION MILL WORKER CNM Unavailab le Kyara De La Fuente RN Unavailable [phone] Marija Edgar APRN TRIMMER HELPER Unavailable Unavail able Mynor Broussard MD Unavailable [phone] Keisha Dotson MD Unavailable Mary Mejia Unavailable Unavailable Stacey Briones BANKING PAR[employer] Unavailable [phone] Lesley Moody CHW Unavailable Mary Mejia Unavailable Unavailable Lita Oseguera Unavailable Unavailable Galo Burrell MD Unavailable Unavailable Cristina Wood Unavailable Lesley Moody CHW Unavailable [phone] Meredith Bedoya Unavailable Unavailable Cristina Wood Unavailable Diana Desir [facility] Unavailable Rain Galaviz PA-C Unavailable Summer Lara MD Unavailable [phone] Summer Lara MD Unavailable +[phone] Summer Lara MD Unavailable + [phone] Tavia Wyatt MD Unavailable Unavailable Johnny Murillo MD Unavailable +1- Erica Farrell DIMENSION MILL WORKER TRIMMER HELPER Unavailable + VikasTeresita RPH Unavailable Tavia Wyatt MD Unavailable Unavailable Diana Desir [facility] Unavailable [phone] Rich Barrett MD Unavailable [phone] Neil Kent MD Unavailable Roney Story DPM Unavailable [phone] Erica Farrell DIMENSION MILL WORKER TRIMMER HELPER Unavailable + Diana Desir [facility] Unavailable +[phone] Jelena David OD Unavailable [phone] Galo Burrell MD Unavailable Unavailable Livan Sharif MD Unavailable + Livan Sharif MD Unavailable + Catherine Cm MD Unavailable + Valery Veronica PA-C Unavailable + [phone] Catherine Cm MD Unavailable + Johnny Murillo MD Unavailable +1- Brea Quinn APRN TRIMMER HELPER Unavailable [phone] Brea Quinn DIMENSION MILL WORKER TRIMMER HELPER Unavailable [phone] Jose Francisco Johnson MD Unavailable Livan Sharif MD Unavailable + Catherine Cm MD Unavailable + Sydnie Martinez RN Unavailable Unavailable Alfonso Renteria MD Unavailable [phone] Esha GrimmC Primary Care Provider Cheng ToddC Unavailable Radha Lomeli APRN, CNP Unavailable Jelena David OD Unavailable [phone] Pao Joseph RN Unavailable Unavailable Esha Grimm PA-C Unavailable [phone] Valery VeronicaC Unavailable [phone] Rey Tay MD Unavailable Rocky Zepeda DO Unavailable Philip Dumont MD Unavailable [phone] Encounter Details Date Type Department Care Team (Latest Contact Info) Description 07/29/2020 [facility] Medical Advice [address] [address] Marija Edgar APRN CNP Palpitations (Primary Dx) Social History Tobacco Use Types [...] COVID-19? No / Unsure 07/30/2020 4:53 PM WATER/WASTEWATER PROJECT ENGINEER documented as of this encounter Miscellaneous Notes * Telephone Encounter - Marija Edgar APRN TRIMMER HELPER - 07/30/2020 10:21 AM WATER/WASTEWATER PROJECT ENGINEER Responded via MyChart Marija Edgar APRN TRIMMER HELPER on 07/30/2020 at 10:28 AM R/WASTEWATER PROJECT ENGINEER documented in this encounter Plan of Treatment Upcoming Encounters Date Type Department Care Team (Late st Contact Info) Description 10/25/2023 11:30 AM CDT Virtual Visit [facility] [address] [place] [phone] Nelly Mesa, RD [address] [place] [address] 11/03/2023 8:00 AM CDT Office Visit [facility] [address] [place] [phone] Valery Veronica PA-C [address] [place] [address] 11/29/2023 8:00 AM CDT Office Visit [facility] [address] [place] [phone] Esha Grimm PA-C [address] [place] [phone] 01/02/2024 8:00 AM CDT Office Visit [facility] [place] [address] [place] [phone] Lauren Claudio PA-C [address] [place] [address] Kelli Perez MD [address] 399744 documented as of this encounter Visit Diagnoses Diagnosis Palpitations- Primary documented in this encounter Additional Health Concerns Infection Onset Date Last Indicated Resolved Time Rule Out COVID-19 07/30/2020 07/30/2020 07/30/2020 7:11 PM WATER/WASTEWATER PROJECT ENGINEER Rule Out COVID-19 08/30/2020 08/30/2020 08/30/2020 5:05 PM WATER/WASTEWATER PROJECT ENGINEER Rule Out COVID-19 09/24/2020 09/24/2020 09/24/2020 9:24 AM CDT Rule Out COVID-19 11/05/2020 11/05/2020 11/06/2020 1:09 PM CDT Rule Out COVID-19 05/11/2021 05/11/2021 05/13/2021 10:18 AM CDT Rule Out COVID-19 07/13/2021 07/13/2021 07/14/2021 3:04 PM WATER/WASTEWATER PROJECT ENGINEER Rule Out COVID-19 07/18/2021 07/18/2021 07/20/2021 1:56 PM WATER/WASTEWATER PROJECT ENGINEER COVID-19 07/18/2021 07/18/2021 08/08/2021 11:3 9 PM WATER/WASTEWATER PROJECT ENGINEER Rule Out COVID-19 12/18/2021 12/18/2021 12/19/2021 11:34 AM CDT Rule Out COVID-19 02/24/2022 02/24/2022 02/25/2022 1:08 PM CDT Rule Out COVID-19 04/26/2022 04/26/2022 04/26/2022 6:47 AM CDT Rule Out COVID-19 05/17/2022 05/17/2022 05/17/2022 10:20 PM WATER/WASTEWATER PROJECT ENGINEER Rule Out COVID-19 06/09/2022 06/09/2022 06/09/2022 9:35 AM WATER/WASTEWATER PROJECT ENGINEER COVID-19 06/09/2022 06/09/2022 06/30/2022 11:4 1 PM WATER/WASTEWATER PROJECT ENGINEER Rule Out COVID-19 11/10/2022 11/10/2022 11/11/2022 12:17 PM CDT Rule Out COVID-19 03/07/2023 03/07/2023 03/07/2023 1:20 PM CDT Assessment Noted Time PHQ-9 Depression Total Score: 9 06/25/20 7:04 AM WATER/WASTEWATER PROJECT ENGINEER documented as of this encounter Care Teams Washcloth Folder Relationship Specialty Start Date End Date Marija Edgar APRN TRIMMER HELPER PCP - General Nurse Practitioner 04/30/20 04/14/23 Esha Grimm PA-C [address] [place] [phone] PCP - General Family Medicine 05/04/23 Lita Oseguera Personal Advocate & Liaison (PAL) 02/28/20 03/27/23 Chanelle Mccann APRN CNAdam [address] [place] [address] 200 [place] [address] Assigned OBGYN Provider 05/02/2005/09 Kyara De La Fuente, VJ Specialty Elevator Repairer Apprentice Neurology 06/04/20 03/05/21 Marija Edgar APRN TRIMMER HELPER Assigned PCP 06/08/20 04/29/23 Mynor Broussard MD 6363 [facility] 500 [place] [address] Assigned Surgical Provider 06/01/20 11/28/21 Keisha Dotson MD 909 [place] [address] Assigned Neuroscience Provider 06/04/20 04/01/23 Mary Mejia Financial Resource Worker 08/07/20 08/21/20 Stacey Briones, B[employer] Lead Elevator Repairer Apprentice Primary Care - CC 08/11/2012/30 Lesley Moody, W Community Health Worker 08/11/2010/01 Jackie Mary Financial Resource Worker 09/02/20 10/06/20 Lita Oseguera Personal Advocate & Liaison (PAL) Family Medicine 09/10/20 09/21/20 Galo Burrell MD Assigned Heart and Vascular Provider 10/05/20 04/02/22 Cristina Wood Financial Resource Worker 10/07/20 10/14/20 Lesley Moody, [facility] Community Health Worker 10/23/2012/30 Meredith Bedoya Financial Resource Worker 10/23/20 11/23/20 Cristina Wood Financial Resource Worker 02/09/21 02/09/21 Diana Desir, [facility] [address] [place], [place] [phone] Pharmacist Pharmacist 04/17/21 Rain Galaviz PA-C [address] [place] [address] [address] [place], [place] [phone] Physician Pattern Room Attendant Dermatology 04/28/21 Summer Lara MD [address] [place] [address] [phone] Assigned OBGYN Provider 05/10/2105/23 Summer Lara MD [address] [place] [address] [phone] Assigned OBGYN Provider 05/31/21 2 Summer Lara MD [address] [place] [address] 940164 Assigned OBGYN Provider 05/24/2105/30 Tavia Wyatt MD [address] [place] [address] Dermatology 07/14/21 Johnny Murillo MD [address] [place] [address] Assigned Musculoskeletal Provider 08/30/21 03/17/22 Erica Farrell APRN TRIMMER HELPER [address] [place] [address] Nurse Practitioner Cardiovascular Disease 09/09/21 Teresita Bean, [facility] [address] [place], [place] [phone] Pharmacist Pharmacist 09/24/21 09/29/21 Tavia Wyatt MD Assigned Surgical Provider 11/29/21 05/07/22 [facility] [address] [place] [address] Assigned MTM Pharmacist 01/02/22 Rich Barrett MD 516 [facility] 9[address] [place], [place] 0[address]255 Physician Ophthalmology 01/21/22 Neil Kent MD [address] [place], [place] 559325 Dermatology 02/24/22 Roney Story DPM [address] [facility] 300 [place], [place] 794407 Assigned Musculoskeletal Provider 03/20/22 08/13/22 Erica Farrell APRN TRIMMER HELPER 1700 [place] [address] Assigned Heart and Vascular Provider 04/03/22 04/16/22 [facility] 3033 [place] [address] Assigned MTM Pharmacist 04/07/22 Jelena David OD [address] [facility] [place] [address] Assigned Surgical Provider 05/08/22 10/08/22 Galo Burrell MD Assigned Heart and Vascular Provider 04/17/22 06/11/22 Livan Sharif MD [address] [place] 924295 Cardiovascular Disease 05/14/22 Livan Sharif MD [address], [address] [place] [address] Assigned Heart and Vascular Provider 06/12/22 07/23/22 Catherine Cm MD [address] [place] MD [id number] Cardiovascular Disease 07/21/22 Valery Veronica PA-C [address] [place], [place] 865785 Physician Pattern Room Attendant Dermatology 07/21/22 Catherine Cm MD [address] [place] [address] [place] [address] Assigned Heart and Vascular Provider 07/24/22 11/05/22 Johnny Murillo MD [address] 455874 Assigned Musculoskeletal Provider 08/14/22 10/08/22 Brea Quinn APRN TRIMMER HELPER [address] [place] [address] [phone] Nurse Practitioner Dermatology 09/21/22 Brea Quinn APRN TRIMMER HELPER [address] [place] [address] [facility] 225992 Assigned Surgical Provider 10/09/22 [place] [address] 722117 Assigned Musculoskeletal Provider 10/09/22 Livan Sharif MD [address] [place] [address] [place] 529765 Assigned Heart and Vascular Provider 11/06/22 11/12/22 Catherine Cm MD [address] [place] [address] [place] 084995 Assigned Heart and Vascular Provider 11/13/22 05/27/23 Sydnie Martinez RN Personal Advocate & Liaison (PAL) Family Medicine 03/28/23 07/31/23 Alfonso Renteria MD [address] [facility] [address] 200 [place] [address] Assigned Neuroscience Provider 04/02/23 Cheng Todd PA-C [address] [place], [place] [phone] Assigned PCP 04/30/23 07/15/23 Radha Lomeli, ARLENE TRIMMER HELPER [address] [facility] [address] [place] [address]75 Assigned Heart and Vascular Provider 05/28/23 Jelena David OD [address] [facility] [place] [address] Ophthalmology 06/15/23 Pao Joseph, VJ Personal Advocate & Liaison (PAL) Nurse 08/01/23 Esha Grimm PA-C [address] [place] [phone] Assigned PCP 07/16/23 Valery Veronica PA-C [address] [place] [address] [phone] Physician Pattern Room Attendant Dermatology 09/19/23 Rey Tay MD [address] [place] [address] [phone] Gastroenterology 09/20/23 Rocky Zepeda DO [address] [place] [address] 068545 Physician Gastroenterology 09/20/23 Philip Dumont MD [address] [place] [address] Physician Ophthalmology 09/22/23 documented as of this encounter
--- OUTSIDE RECORDS SUMMARY | 2023-10-15 21:59 | XMS_ITS | Encounter Summary ---
Author Name Unknown Organization [facility] Address [address] [place] [address] Care Team Providers Care Shared Services And Outsourcing Manager Name Role Phone Lita Oseguera Unavailable Unavailable Marija Edgar APRN JEWEL STRIPPER Primary Care Provider Chanelle Gutierrez APRN CNM Unavailab le Kyara De La Fuente RN Unavailable [phone] Marija Edgar APRN JEWEL STRIPPER Unavailable Unavail able Mynor Broussard MD Unavailable [phone] Keisha Dotson MD Unavailable Stacey Briones BEAN ROASTER Unavailable Lesley Moody CHW Unavailable Mary Mejia Unavailable Unavailable Lita Oseguera Unavailable Unavailable Galo Burrell MD Unavailable Unavailable Cristina Wood Unavailable Lesley Moody CHW Unavailable Meredith Bedoya Unavailable Unavailable Cristina Wood Unavailable [facility] Unavailable [phone] Rain Galaviz PA-C Unavailable Summer Lara MD Unavailable [phone] Summer Lara MD Unavailable [phone] Summer Lara MD Unavailable [phone] Tavia Wyatt MD Unavailable Unavailable SembraJohnny ortiz MD Unavailable [phone] Erica Farrell CUT OFF MACHINE UNLOADER JEWEL STRIPPER Unavailable + [facility] Unavailable Tavia Wyatt MD Unavailable Unavailable [facility] Unavailable [phone] Rich Barrett MD Unavailable +[phone] Neil Kent MD Unavailable Roney Story DPM Unavailable [phone] Erica Farrell CUT OFF MACHINE UNLOADER JEWEL STRIPPER Unavailable + [facility] Unavailable [phone] Jelena David Radha Unavailable Galo Burrell MD Unavailable Unavailable Livan Sharif MD Unavailable + Livan Sharif MD Unavailable + Catherine Cm MD Unavailable + Valery Veronica PA-C Unavailable + [phone] Catherine Cm MD Unavailable + Johnny Murillo MD Unavailable +1- Brea Quinn CUT OFF MACHINE UNLOADER JEWEL STRIPPER Unavailable +1- Brea Quinn CUT OFF MACHINE UNLOADER JEWEL STRIPPER Unavailable [phone] Jose Francisco Johnson MD Unavailable Livan Sharif MD Unavailable + Catherine Cm MD Unavailable + Sydnie Martinez RN Unavailable Unavailable Alfonso Renteria MD Unavailable + [phone] Esha GrimmC Primary Care Provider [phone] Cheng Todd PA-C Unavailable Radha Lomeli APRN JEWEL STRIPPER Unavailable [phone] Jelena David OD Unavailable Pao Joseph RN Unavailable Unavailable Esha Grimm PA-C Unavailable [phone] Valery Veronica PA-C Unavailable [phone] Rey Tay MD Unavailable Rocky Zepeda DO Unavailable Philip Dumont MD Unavailable [phone] Encounter Details Date Type Department Care Team (Late st Contact Info) Description 09/02/2020 [facility] Care Coordination [address] [place] [address] Mary Mejia Social History Tobacco Use Types Packs/Day Years [...] How often do you attend chur or cheondoism services? More than 4 times per year 08/07/2020 Do you belong to any clubs o r organizations such as anabaptism groups, unions, fraternal or athletic groups, [...] Answer Date Recorded PHQ-2 Score 0 08/12/2020 [facility] - Occupational Stress Questionnaire Answer [...] a senior care (including now)? No 08/11/2020 Education Answer Date [...] COVID-19? No / Unsure 09/05/2020 2:50 PM MOLD FINISHER documented as of this encounter Plan of Treatment Upcoming Encounters Date Type Department Care Team (Late st Contact Info) Description 10/25/2023 11:30 AM CDT Virtual Visit [facility] [address] [address] [address], [address] [place], [place] [address] 11/03/2023 8:00 AM CDT Office Visit [address] [address] Valery Veronica, PAUcheC [address] [place] [address] 11/29/2023 8:00 AM CDT Office Visit [facility] [address] [place] [phone] Esha Grimm PA-C [address] [place] [address] 01/02/2024 8:00 AM CDT Office Visit [facility] [address] [place] [phone] Lauren Claudio PA-C [address] [place] [address] Kelli Perez MD [address] [place], [place] [phone] documented as of this encounter Visit Diagnoses Not on filedocumented in this encounter Additional Health Concerns Infection Onset Date Last Indicated Resolved Time Rule Out COVID-19 09/24/2020 09/24/2020 09/24/2020 9:24 AM CDT Rule Out COVID-19 11/05/2020 11/05/2020 11/06/2020 1:09 PM CDT Rule Out COVID-19 05/11/2021 05/11/2021 05/13/2021 10:18 AM CDT Rule Out COVID-19 07/13/2021 07/13/2021 07/14/2021 3:04 PM MOLD FINISHER Rule Out COVID-19 07/18/2021 07/18/2021 07/20/2021 1:56 PM MOLD FINISHER COVID-19 07/18/2021 07/18/2021 08/08/2021 11:3 9 PM MOLD FINISHER Rule Out COVID-19 12/18/2021 12/18/2021 12/19/2021 11:34 AM CDT Rule Out COVID-19 02/24/2022 02/24/2022 02/25/2022 1:08 PM CDT Rule Out COVID-19 04/26/2022 04/26/2022 04/26/2022 6:47 AM CDT Rule Out COVID-19 05/17/2022 05/17/2022 05/17/2022 10:20 PM MOLD FINISHER Rule Out COVID-19 06/09/2022 06/09/2022 06/09/2022 9:35 AM MOLD FINISHER COVID-19 06/09/2022 06/09/2022 06/30/2022 11:4 1 PM MOLD FINISHER Rule Out COVID-19 11/10/2022 11/10/2022 11/11/2022 12:17 PM CDT Rule Out COVID-19 03/07/2023 03/07/2023 03/07/2023 1:20 PM CDT Assessment Noted Time PHQ-9 Depression Total Score: 9 06/25/20 7:04 AM MOLD FINISHER documented as of this encounter Care Teams Shared Services And Outsourcing Manager Relationship Specialty Start Date End Date Marija Edgar APRN JEWEL STRIPPER PCP - General Nurse Practitioner 04/30/20 04/14/23 Esha Grimm PA-C [address] [place] [phone] PCP - General Family Medicine 05/04/23 Lita Oseguera Personal Advocate & Liaison (PAL) 02/28/20 03/27/23 Chanelle Mccann APRN CNM [address] [place] [address] Assigned OBGYN Provider 05/02/2005/09 Kyara De La Fuente, RN Specialty Tow Motor Mechanic Neurology 06/04/20 03/05/21 Marija Edgar APRN JEWEL STRIPPER Assigned PCP 06/08/20 04/29/23 Mynor Broussard MD [address] [place] [address] Assigned Surgical Provider 06/01/20 11/28/21 Keisha Dotson MD 909 [place] [address] Assigned Neuroscience Provider 06/04/20 04/01/23 Stacey Briones, [facility] Lead Tow Motor Mechanic Primary Care - CC 08/11/2012/30 Lesley Moody, [facility] Community Health Worker 08/11/2010/01 Mary Mejia Financial Resource Worker 09/02/20 10/06/20 Lita Oseguera Personal Advocate & Liaison (PAL) Family Medicine 09/10/20 09/21/20 Galo Burrell MD Assigned Heart and Vascular Provider 10/05/20 04/02/22 Cristina Wood Financial Resource Worker 10/07/20 10/14/20 Lesley Moody, [facility] Community Health Worker 10/23/2012/30 Meredith Bedoya Financial Resource Worker 10/23/20 11/23/20 Cristina Wood Financial Resource Worker 02/09/21 02/09/21 Diana Desir, [facility] [address] [place] [address] Pharmacist Pharmacist 04/17/21 Rain Galaviz PA-C [address] [place] [address] [address] [place] [address] Physician Mine Geologist Dermatology 04/28/21 Summer Lara MD [address] [place], [place] 4232[address] Assigned OBGYN Provider 05/10/2105/23 Summer Lara MD [address] [place], [place] 9022[address] Assigned OBGYN Provider 05/31/21 Summer Lara MD [address] [place], [place] 6404[address] Assigned OBGYN Provider 05/24/2105/30 Tavia Wyatt MD [address] [place] [address] Dermatology 07/14/21 Johnny Murillo MD [address] [place] [address] Assigned Musculoskeletal Provider 08/30/21 03/17/22 Erica Farrell APRN JEWEL STRIPPER [address] [facility] [address] [place] [address] Nurse Practitioner Cardiovascular Disease 09/09/21 [facility] Bean [facility] [address] [place] [address] Pharmacist Pharmacist 09/24/21 09/29/21 Tavia Wyatt MD Assigned Surgical Provider 11/29/21 05/07/22 Diana Desir, [facility] [address] [place] [address] Assigned MTM Pharmacist 01/02/22 Rich Barrett MD [address] 025[address] Physician Ophthalmology 01/21/22 Neil Kent MD [address] [place], [place] 923555 Dermatology 02/24/22 Roney Story DPM [address] [facility] [address] [place] [address] Assigned Musculoskeletal Provider 03/20/22 08/13/22 Erica Farrell APRN JEWEL STRIPPER 1700 [place] [address] Assigned Heart and Vascular Provider 04/03/22 04/16/22 [facility] 3033 [place] [address] Assigned MTM Pharmacist 04/07/22 Jelena David OD [address] [place] [address] Assigned Surgical Provider 05/08/22 10/08/22 Galo Burrell MD Assigned Heart and Vascular Provider 04/17/22 06/11/22 Livan Sharif MD [address] [facility] [address] [place] [address] Cardiovascular Disease 05/14/22 Livan Sharif MD [address], [facility] [address] [place] [address] Assigned Heart and Vascular Provider 06/12/22 07/23/22 Catherine Cm MD [address] [facility]00 [place] 34[address]85 Cardiovascular Disease 07/21/22 Valery Veronica, PAUcheC [address] [place] [address] 322305 Physician Mine Geologist Dermatology 07/21/22 Catherine Cm MD [address] [facility] [place] [place] [address] Assigned Heart and Vascular Provider 07/24/22 11/05/22 Johnny Murillo MD [facility] [address] 173604 Assigned Musculoskeletal Provider 08/14/22 10/08/22 Brea Quinn APRN JEWEL STRIPPER [address] [place] [address] 101875 Nurse Practitioner Dermatology 09/21/22 Brea Quinn APRN JEWEL STRIPPER [address] [place] [address] [place]ER 846682 Assigned Surgical Provider 10/09/22 [place] [address] [place] [address] 464[address] Assigned Musculoskeletal Provider 10/09/22 Livan Sharif MD [address], [facility] [address] [place] 976875 Assigned Heart and Vascular Provider 11/06/22 11/12/22 Catherine Cm MD [address] [place], [place] 0[address] Assigned Heart and Vascular Provider 11/13/22 05/27/23 Sydnie Martinez, RN Personal Advocate & Liaison (PAL) Family Medicine 03/28/23 07/31/23 Alfonso Renteria MD [facility] 200 [place], [place] [address] Assigned Neuroscience Provider 04/02/23 Cheng Todd PA-C [address] [place], [place] 33446[address] Assigned PCP 04/30/23 07/15/23 Radha Lomeli APRN JEWEL STRIPPER [address] [place] 261565 Assigned Heart and Vascular Provider 05/28/23 Jelena David OD [address] [place] [address] Ophthalmology 06/15/23 Pao Joseph, VJ Personal Advocate & Liaison (PAL) Nurse 08/01/23 Esha Grimm PAUcheC [address] [place] [phone] Assigned PCP 07/16/23 Valery Veronica, R[address]ERT[address] [place], [place] 9[address] Physician Mine Geologist Dermatology 09/19/23 Rey Tay MD [address] [place] [address] [id number] MD Gastroenterology 09/20/23 Rocky Zepeda DO [address] [place] [address] 299915 Physician Gastroenterology 09/20/23 Philip Dumont MD [address] [place] [address] 377435 Physician Ophthalmology 09/22/23 documented as of this encounter
--- OUTSIDE RECORDS SUMMARY | 2023-10-15 21:59 | XMS_ITS | Encounter Summary ---
Author Name Unknown Organization [facility] Address [address] [place] [address] Care Team Providers Care Hospice Rn Name Role Phone Lita Oseguera Unavailable Unavailable Marija Edgar APRN FOLDING 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 Primary Care Provider [facility] COMMISSIONS ANALYST CNM Unavailab le Kyara De La Fuente RN Unavailable [phone] Marija Edgar APRN FOLDING 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 Unavailable Unavail able Mynor Broussard MD Unavailable [phone] Keisha Dotson MD Unavailable Mary Mejia Unavailable Unavailable Stacey Briones LODE MINER Unavailable [phone] Lesley Moody CHW Unavailable Mary Mejia Unavailable Unavailable Lita Oseguera Unavailable Unavailable Galo Burrell MD Unavailable Unavailable Cristina Wood Unavailable Lesley Moody CHW Unavailable Meredith Bedoya Unavailable Unavailable Cristina Wood Unavailable Diana Desir [facility] Unavailable Rain Galaviz PA-C Unavailable Summer Lara MD Unavailable [phone] Summer Lara MD Unavailable +[phone] Summer Lara MD Unavailable + [phone] Tavia Wyatt MD Unavailable Unavailable Johnny Murillo MD Unavailable +1- Erica Farrell COMMISSIONS ANALYST FOLDING 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 Unavailable + VikasTeresita RPH Unavailable Tavia Wyatt MD Unavailable Unavailable Diana Desir [facility] Unavailable [phone] Rich Barrett MD Unavailable [phone] Neil Kent MD Unavailable Roney Story DPM Unavailable [phone] Erica Farrell COMMISSIONS ANALYST FOLDING 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 Unavailable + Diana Desir [facility] Unavailable +[phone] Jelena David OD Unavailable [phone] Galo Burrell MD Unavailable Unavailable Livan Sharif MD Unavailable + Livan Sharif MD Unavailable + Catherine Cm MD Unavailable + Valery Veronica PA-C Unavailable + [phone] Catherine Cm MD Unavailable + Johnny Murillo MD Unavailable +1- Brea Quinn APRN FOLDING 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 Unavailable [phone] Brea Quinn COMMISSIONS ANALYST FOLDING 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 Unavailable [phone] Jose Francisco Johnson MD Unavailable Livan Sharif MD Unavailable + Catherine Cm MD Unavailable + Sydnie Martinez RN Unavailable Unavailable Alfonso Renteria MD Unavailable [phone] Esha GrimmC Primary Care Provider [phone] Cheng ToddC Unavailable Radha Lomeli APRN FOLDING 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 Unavailable Jelena David OD Unavailable Pao Joseph RN Unavailable Unavailable Esha Grimm PA-C Unavailable [phone] Valery VeronicaC Unavailable Rey Tay MD Unavailable Rocky Zepeda DO Unavailable Philip Dumont MD Unavailable Encounter Details Date Type Department Care Team (Late st Contact Info) Description 07/29/2020 MyC Medical Advice [facility] [place] [address] [facility], [address] [place] [address] Keisha Dotson MD [address] [place] [address] Social History Tobacco Use Types Packs/Day Years [...] COVID-19? No / Unsure 07/30/2020 4:53 PM LANDSCAPE PHOTOGRAPHER documented as of this encounter Plan of Treatment Upcoming Encounters Date Type Department Care Team (Late st Contact Info) Description 10/25/2023 11:30 AM CDT Virtual Visit [facility] [address] [place] [place] [phone] [address], [address] [place] [address] 11/03/2023 8:00 AM CDT Office Visit [facility] 830 [place] [phone] Valery Veronica PA-C 9 [place] [address] 11/29/2023 8:00 AM CDT Office Visit [facility] [address] [place] [phone] Esha Grimm PA-C [address] [place] [address] 01/02/2024 8:00 AM CDT Office Visit [facility] [place] [address] [place] [phone] Lauren Claudio PA-C [address] [place], [place] [phone] Kelli Perez MD [address] 145[address] documented as of this encounter Visit Diagnoses Not on filedocumented in this encounter Additional Health Concerns Infection Onset Date Last Indicated Resolved Time Rule Out COVID-19 07/30/2020 07/30/2020 07/30/2020 7:11 PM LANDSCAPE PHOTOGRAPHER Rule Out COVID-19 08/30/2020 08/30/2020 08/30/2020 5:05 PM LANDSCAPE PHOTOGRAPHER Rule Out COVID-19 09/24/2020 09/24/2020 09/24/2020 9:24 AM CDT Rule Out COVID-19 11/05/2020 11/05/2020 11/06/2020 1:09 PM CDT Rule Out COVID-19 05/11/2021 05/11/2021 05/13/2021 10:18 AM CDT Rule Out COVID-19 07/13/2021 07/13/2021 07/14/2021 3:04 PM LANDSCAPE PHOTOGRAPHER Rule Out COVID-19 07/18/2021 07/18/2021 07/20/2021 1:56 PM LANDSCAPE PHOTOGRAPHER COVID-19 07/18/2021 07/18/2021 08/08/2021 11:3 9 PM LANDSCAPE PHOTOGRAPHER Rule Out COVID-19 12/18/2021 12/18/2021 12/19/2021 11:34 AM CDT Rule Out COVID-19 02/24/2022 02/24/2022 02/25/2022 1:08 PM CDT Rule Out COVID-19 04/26/2022 04/26/2022 04/26/2022 6:47 AM CDT Rule Out COVID-19 05/17/2022 05/17/2022 05/17/2022 10:20 PM LANDSCAPE PHOTOGRAPHER Rule Out COVID-19 06/09/2022 06/09/2022 06/09/2022 9:35 AM LANDSCAPE PHOTOGRAPHER COVID-19 06/09/2022 06/09/2022 06/30/2022 11:4 1 PM LANDSCAPE PHOTOGRAPHER Rule Out COVID-19 11/10/2022 11/10/2022 11/11/2022 12:17 PM CDT Rule Out COVID-19 03/07/2023 03/07/2023 03/07/2023 1:20 PM CDT Assessment Noted Time PHQ-9 Depression Total Score: 9 06/25/20 20 7:04 AM LANDSCAPE PHOTOGRAPHER documented as of this encounter Care Teams Hospice Rn Relationship Specialty Start Date End Date Marija Edgar APRN FOLDING 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 PCP - General Nurse Practitioner 04/30/20 04/14/23 Esha Grimm PA-C [address] [place] [phone] PCP - General Family Medicine 05/04/23 Lita Oseugera Personal Advocate & Liaison (PAL) 02/28/20 03/27/23 Chanelle Mccann APRN CNM [address] [address] 200 [address] Assigned OBGYN Provider 05/02/2005/09 Kyara De La Fuente, VJ Specialty [employer] Neurology 06/04/20 03/05/21 Marija Edgar APRN FOLDING 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 Assigned PCP 06/08/20 04/29/23 Mynor Broussard MD [address] [facility] [address] [place] [address] Assigned Surgical Provider 06/01/20 11/28/21 Keisha Dotson MD 909 [place] [address] Assigned Neuroscience Provider 06/04/20 04/01/23 Mary Mejia Financial Resource Worker 08/07/20 08/21/20 Stacey Briones, LODE MINER Lead [employer] Primary Care - CC 08/11/2012/30 Lseley Moody, W Community Health Worker 08/11/2010/01 Mary Mejia Financial Resource Worker 09/02/20 10/06/20 Lita Oseguera Personal Advocate & Liaison (PAL) Family Medicine 09/10/20 09/21/20 Galo Burrell MD Assigned Heart and Vascular Provider 10/05/20 04/02/22 Cristina Wood Financial Resource Worker 10/07/20 10/14/20 Lesley Moody, [facility] Community Health Worker 10/23/2012/30 Meredith Bedoya Financial Resource Worker 10/23/20 11/23/20 Cristina Wood Financial Resource Worker 02/09/21 02/09/21 Diana Desir, [facility] 3033 [place] [address] Pharmacist Pharmacist 04/17/21 Rain Galaviz PA-C [address] [place] [address] [place] [address] Physician Hospice Team Lead Dermatology 04/28/21 Summer Lara MD [address] [place] [address] [phone] Assigned OBGYN Provider 05/10/2105/23 Summer Lara MD [address] [place] [address] [phone] Assigned OBGYN Provider 05/31/21 2 Summer Lara MD [address] [place] [address] 118724 Assigned OBGYN Provider 05/24/2105/30 Tavia Wyatt MD [address] [place] [address] Dermatology 07/14/21 Johnny Murillo MD [address] [address] Assigned Musculoskeletal Provider 08/30/21 03/17/22 Erica Farrell APRN FOLDING 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 [address] [facility] [address] [place] [address] Nurse Practitioner Cardiovascular Disease 09/09/21 Teresita Bean, [facility] [address] [place] [phone] Pharmacist Pharmacist 09/24/21 09/29/21 Tavia Wyatt MD Assigned Surgical Provider 11/29/21 05/07/22 [facility] 3033 [place] [address] Assigned MTM Pharmacist 01/02/22 Rich Barrett MD 516 [facility] 9A [address] Physician Ophthalmology 01/21/22 Neil Kent MD 500 [place] [address] Dermatology 02/24/22 [place] [address] [facility] [address] [place], [place] 181807 Assigned Musculoskeletal Provider 03/20/22 08/13/22 Erica Farrell APRN FOLDING 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 1700 [place] [address] Assigned Heart and Vascular Provider 04/03/22 04/16/22 Diana Desir, [facility] 30[address] [place] [address] Assigned MTM Pharmacist 04/07/22 Jelena David OD [address] [facility] [place] [address] Assigned Surgical Provider 05/08/22 10/08/22 Galo Burrell MD Assigned Heart and Vascular Provider 04/17/22 06/11/22 Livan Sharif MD [address], [address] [place] [address] Cardiovascular Disease 05/14/22 Livan Sharif MD [address], [address] [place] [address] Assigned Heart and Vascular Provider 06/12/22 07/23/22 Catherine Cm MD [address] [place] [address]185 Cardiovascular Disease 07/21/22 Valery Veronica, PAUcheC 909 [place] [address] Physician Hospice Team Lead Dermatology 07/21/22 Catherine Cm MD [address] [place] [address] Assigned Heart and Vascular Provider 07/24/22 11/05/22 Johnny Murillo MD [address] 717054 Assigned Musculoskeletal Provider 08/14/22 10/08/22 Brea Quinn APRN FOLDING 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 [address] [place] [address] 614785 Nurse Practitioner Dermatology 09/21/22 Brea Quinn APRN FOLDING 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 [facility] 757302 Assigned Surgical Provider 10/09/22 [place] [address] 168007 Assigned Musculoskeletal Provider 10/09/22 Livan Sharif MD [address], [facility] [address] [place] [address] Assigned Heart and Vascular Provider 11/06/22 11/12/22 Catherine Cm MD [address] [facility] [address] [place] [address] Assigned Heart and Vascular Provider 11/13/22 05/27/23 JaunSydnie malik RN Personal Advocate & Liaison (PAL) Family Medicine 03/28/23 07/31/23 Alfonso Renteria MD [address] [facility] 200 [place], [place] 79[address] Assigned Neuroscience Provider 04/02/23 Cheng Todd PA-C [address] [place] [address] Assigned PCP 04/30/23 07/15/23 Radha Lomeli APRN FOLDING 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 [address] [place] [address] Assigned Heart and Vascular Provider 05/28/23 Jelena David OD [address] [facility] [place] [address] Ophthalmology 06/15/23 Pao Joseph, VJ Personal Advocate & Liaison (PAL) Nurse 08/01/23 Esha Grimm PA-C [address] [place] [address] Assigned PCP 07/16/23 Valery Veronica PA-C [address] [place] [address] 711455 Physician Hospice Team Lead Dermatology 09/19/23 Rey Tay MD [address] [place] [address] [phone] Gastroenterology 09/20/23 Rocky Zepeda DO [address] [place] [address] 387325 Physician Gastroenterology 09/20/23 Philip Dumont MD [address] [place] [address] 289395 Physician Ophthalmology 09/22/23 documented as of this encounter
--- OUTSIDE RECORDS SUMMARY | 2023-10-15 21:59 | XMS_ITS | Encounter Summary ---
Author Name Unknown Organization [facility] Address [address] [place] [address] Care Team Providers Care Stone Dresser Name Role Phone Lita Oseguera Unavailable Unavailable Marija Edgar APRN WEEDER THINNER Primary Care Provider Chanelle [facility] IMMUNOCHEMIST CNM Unavailab le Kyara De La Fuente RN Unavailable [phone] Marija Edgar APRN WEEDER THINNER Unavailable Unavail able Mynor Broussard MD Unavailable Keisha Dotson MD Unavailable Mary Mejia Unavailable Unavailable Stacey Briones SAT ACT INSTRUCTOR Unavailable [phone] Lesley Moody CHW Unavailable [phone] Mary Mejia Unavailable Unavailable Lita Oseguera Unavailable Unavailable Galo Burrell MD Unavailable Unavailable Cristina Wood Unavailable Lesley Moody CHW Unavailable [phone] Meredith Bedoya Unavailable Unavailable Cristina Wood Unavailable Diana Desir [facility] Unavailable Rain Galaviz PA-C Unavailable Summer Lara MD Unavailable [phone] Summer Lara MD Unavailable +[phone] Summer Lara MD Unavailable + [phone] Tavia Wyatt MD Unavailable Unavailable Johnny Murillo MD Unavailable +1- Erica Farrell IMMUNOCHEMIST WEEDER THINNER Unavailable + VikasTeresita RPH Unavailable Tavia Wyatt MD Unavailable Unavailable Diana Desir [facility] Unavailable [phone] Rich Barrett MD Unavailable [phone] Neil Kent MD Unavailable Roney Story DPM Unavailable [phone] Erica Farrell IMMUNOCHEMIST WEEDER THINNER Unavailable + Diana Desir [facility] Unavailable [phone] Jelena David OD Unavailable [phone] Galo Burrell MD Unavailable Unavailable Livan Sharif MD Unavailable + Livan Sharif MD Unavailable + Catherine Cm MD Unavailable + Valery Veronica PA-C Unavailable + [phone] Catherine Cm MD Unavailable + Johnny Murillo MD Unavailable +1- Brea Quinn APRN WEEDER THINNER Unavailable [phone] Brea Quinn IMMUNOCHEMIST WEEDER THINNER Unavailable [phone] Jose Francisco Johnson MD Unavailable Livan Sharif MD Unavailable + Catherine Cm MD Unavailable + Sydnie Martinez RN Unavailable Unavailable Alfonso Renteria MD Unavailable [phone] Esha GrimmC Primary Care Provider Cheng ToddC Unavailable Radha Lomeli APRN [employer]ER [employer]INNER Unavailable Jelena David OD Unavailable Pao Joseph RN Unavailable Unavailable Esha Grimm PA-C Unavailable [phone] Valery VeronicaC Unavailable [phone] Rey Tay MD Unavailable Rocky Zepeda DO Unavailable Philip Dumont MD Unavailable Reason for Visit * Reason Comments Medication Refill Encounter Details Date Type Department Care Team (Late st Contact Info) Description 07/14/[address] [address] Rakesh Cid PA-C [address] [place] [address] Medication Refill Social History Tobacco Use Types [...] have Coronavirus / COVID-19? No / Unsure 06/24/2020 3:01 PM PEARL STRINGER documented as of this encounter Miscellaneous Notes * Telephone Encounter - Estephania Black RN - 07/16/2020 11:38 AM PEARL STRINGER Routing refill request to provider for review/approval because: Labs out of range: PHQ9> 4 patient was seen 3 weeks ago. Estephania Black RN Flex L STRINGER * Telephone Encounter - Brea Perry RN - 07/16/2020 11:34 AM PEARL STRINGER Routing to correct clinic. L STRINGER documented in this encounter Plan of Treatment Upcoming Encounters Date Type Department Care Team (Late st Contact Info) Description 10/25/2023 11:30 AM CDT Virtual Visit [facility] [address] [phone] Nelly Mesa, RD [address] [place] [address] 11/03/2023 8:00 AM CDT Office Visit [address] [phone] Valery Veronica PA-C [address] [place] [address] 11/29/2023 8:00 AM CDT Office Visit [address] [address] Esha Grimm PA-C [id number] [place] [phone] 01/02/2024 8:00 AM CDT Office Visit [facility] [address] [place] [phone] Lauren Claudio PA-C [address] [place] [address] [phone] Kelli Perez MD [address] [place] [address] documented as of this encounter Visit Diagnoses Diagnosis Anxiety Anxiety state, unspecified documented in this encounter Additional Health Concerns Infection Onset Date Last Indicated Resolved Time Rule Out COVID-19 07/30/2020 07/30/2020 07/30/2020 7:11 PM PEARL STRINGER Rule Out COVID-19 08/30/2020 08/30/2020 08/30/2020 5:05 PM PEARL STRINGER Rule Out COVID-19 09/24/2020 09/24/2020 09/24/2020 9:24 AM CDT Rule Out COVID-19 11/05/2020 11/05/2020 11/06/2020 1:09 PM CDT Rule Out COVID-19 05/11/2021 05/11/2021 05/13/2021 10:18 AM CDT Rule Out COVID-19 07/13/2021 07/13/2021 07/14/2021 3:04 PM PEARL STRINGER Rule Out COVID-19 07/18/2021 07/18/2021 07/20/2021 1:56 PM PEARL STRINGER COVID-19 07/18/2021 07/18/2021 08/08/2021 11:3 9 PM PEARL STRINGER Rule Out COVID-19 12/18/2021 12/18/2021 12/19/2021 11:34 AM CDT Rule Out COVID-19 02/24/2022 02/24/2022 02/25/2022 1:08 PM CDT Rule Out COVID-19 04/26/2022 04/26/2022 04/26/2022 6:47 AM CDT Rule Out COVID-19 05/17/2022 05/17/2022 05/17/2022 10:20 PM PEARL STRINGER Rule Out COVID-19 06/09/2022 06/09/2022 06/09/2022 9:35 AM PEARL STRINGER COVID-19 06/09/2022 06/09/2022 06/30/2022 11:4 1 PM PEARL STRINGER Rule Out COVID-19 11/10/2022 11/10/2022 11/11/2022 12:17 PM CDT Rule Out COVID-19 03/07/2023 03/07/2023 03/07/2023 1:20 PM CDT Assessment Noted Time PHQ-9 Depression Total Score: 9 06/25/20 20 7:04 AM PEARL STRINGER documented as of this encounter Care Teams Stone Dresser Relationship Specialty Start Date End Date Marija dEgar APRN [employer]ER [employer]INNER PCP - General Nurse Practitioner 04/30/20 04/14/23 Esha Grimm PA-C [address] [place] [phone] PCP - General Family Medicine 05/04/23 Lita Oseguera Personal Advocate & Liaison (PAL) 02/28/20 03/27/23 Chanelle Mccann APRN CNM [address] [place] [address] 200 [place] [address] Assigned OBGYN Provider 05/02/2005/09 Kyara De La Fuente, RN Specialty Legal Clerk Neurology 06/04/20 03/05/21 Marija Edgar APRN [employer]ER [employer]INNER Assigned PCP 06/08/20 04/29/23 Mynor Broussard MD 6363 [facility] 500 [place] [address] Assigned Surgical Provider 06/01/20 11/28/21 Keisha Dotson MD [address] [place] [address] 735315 Assigned Neuroscience Provider 06/04/20 04/01/23 Nikiatimothy Mary Financial Resource Worker 08/07/20 08/21/20 Stacey Briones, [facility] Lead Legal Clerk Primary Care - CC 08/11/2012/30 Lesley Moody, [facility] Community Health Worker 08/11/2010/01 Mary Mejia Financial Resource Worker 09/02/20 10/06/20 Lita Oseguera Personal Advocate & Liaison (PAL) Family Medicine 09/10/20 09/21/20 Galo Burrell MD Assigned Heart and Vascular Provider 10/05/20 04/02/22 Cristina Wood Financial Resource Worker 10/07/20 10/14/20 Lesley Moody, [facility] Community Health Worker 10/23/2012/30 Meredith Bedoya Financial Resource Worker 10/23/20 11/23/20 Cristina Wood Financial Resource Worker 02/09/21 02/09/21 Diana Desir, [facility] [address] [place] [address] Pharmacist Pharmacist 04/17/21 Rain Galaviz PA-C [address] [place] [address] [facility] [place] [phone] Physician Home Performance Laborer Dermatology 04/28/21 Summer Lara MD [address] [place], [place] 130644 Assigned OBGYN Provider 05/10/2105/23 Summer Lara MD [address] [place], [place] 958154 Assigned OBGYN Provider 05/31/21 Summer Lara MD [address] [place], [place] [address]794 Assigned OBGYN Provider 05/24/2105/30 Tavia Wyatt MD [address] [place] [address] [facility] 07/14/21 Johnny Murillo MD [address] [facility] [address] [place], [place] 999834 Assigned Musculoskeletal Provider 08/30/21 03/17/22 Erica Farrell APRN WEEDER THINNER [address] [facility] [address] [place], [place] 387785 Nurse Practitioner Cardiovascular Disease 09/09/21 Teresita Bean, [facility] [address] [place] [phone] Pharmacist Pharmacist 09/24/21 09/29/21 Tavia Wyatt MD Assigned Surgical Provider 11/29/21 05/07/22 Diana Desir, [facility] [address] [facility] [place] [address] Assigned MTM Pharmacist 01/02/22 Rich Barrett MD [address] [address] Physician Ophthalmology 01/21/22 Neil Kent MD 500 [place] [address] Dermatology 02/24/22 Roney Story DPM [address] [employer] [address] [place] [address] Assigned Musculoskeletal Provider 03/20/22 08/13/22 Erica Farrell APRN WEEDER THINNER 1700 [place] [address] Assigned Heart and Vascular Provider 04/03/22 04/16/22 [facility] 3033 [place] [address] Assigned MTM Pharmacist 04/07/22 Jelena David OD [address] [facility] [place] [address] Assigned Surgical Provider 05/08/22 10/08/22 Galo Burrell MD Assigned Heart and Vascular Provider 04/17/22 06/11/22 Livan Sharif MD [address] [place] [address] Cardiovascular Disease 05/14/22 Livan Sharif MD [address] [place] [address] Assigned Heart and Vascular Provider 06/12/22 07/23/22 Catherine Cm MD [address] [facility]00 [place] [address] Cardiovascular Disease 07/21/22 Valery Veronica, [facility] 909 [place] [address] Physician Home Performance Laborer Dermatology 07/21/22 Catherine Cm MD [address] [facility]00 [place] 088935 Assigned Heart and Vascular Provider 07/24/22 11/05/22 Johnny Murillo MD [address] [place] [address] [phone] Assigned Musculoskeletal Provider 08/14/22 10/08/22 Brea Quinn APRN WEEDER THINNER [address] [place] [address] 576035 Nurse Practitioner Dermatology 09/21/22 Brea Quinn APRN WEEDER THINNER [address] [place] [address] [facility] 118802 Assigned Surgical Provider 10/09/22 [place] [address] RAZO [facility] [place] 566577 Assigned Musculoskeletal Provider 10/09/22 Livan Sharif MD [address] [facility]00 [place] 540715 Assigned Heart and Vascular Provider 11/06/22 11/12/22 Catherine Cm MD [address] [place] [address] Assigned Heart and Vascular Provider 11/13/22 05/27/23 Sydnie Martinez RN Personal Advocate & Liaison (PAL) Family Medicine 03/28/23 07/31/23 Alfonso Renteria MD [address] [facility] [address] [place], [place] 537966 Assigned Neuroscience Provider 04/02/23 Cheng Todd PA-C [address] [place], [place] [phone] Assigned PCP 04/30/23 07/15/23 Radha Lomeli, ARLENE [employer]INNER [address] [place] 9[address]995 Assigned Heart and Vascular Provider 05/28/23 Jelena David OD 3305 [facility] [place] [address] Ophthalmology 06/15/23 Pao Joseph, VJ Personal Advocate & Liaison (PAL) Nurse 08/01/23 Ehsa Grimm PA-C [address] [place] [phone] Assigned PCP 07/16/23 Valery Veronica PA-C 909 [place], [place] 909465 Physician Home Performance Laborer Dermatology 09/19/23 Rey Tay MD 909 [place], [place] 472045 MD Gastroenterology 09/20/23 Rocky Zepeda DO [address] [place] [address] [phone] Physician Gastroenterology 09/20/23 Philip Dumont MD [address] [place] [address] 035045 Physician Ophthalmology 09/22/23 documented as of this encounter
--- OUTSIDE RECORDS SUMMARY | 2023-10-15 21:59 | XMS_ITS | Encounter Summary ---
Author Name Unknown Organization [facility] Address [address] [place] [address] Care Team Providers Care Utility Bag Assembler Name Role Phone Lita Oseguera Unavailable Unavailable Marija Edgar APRN NAVY AIRSPACE OFFICER Primary Care Provider Chanelle Gutierrez APRN CNM Unavailab le Kyara De La Fuente RN Unavailable [phone] Marija Edgar APRN NAVY AIRSPACE OFFICER Unavailable Unavail able Mynor Broussard MD Unavailable [phone] Keisha Dotson MD Unavailable Stacey Briones VENEER REDRIER Unavailable [phone] Lesley Moody CHW Unavailable [phone] Mary Mejia Unavailable Unavailable Lita Oseguera Unavailable Unavailable Galo Burrell MD Unavailable Unavailable Cristina Wood Unavailable Lesley Moody CHW Unavailable Meredith Bedoya Unavailable Unavailable Cristina Wood Unavailable Diana Desir [facility] Unavailable Rain Galaviz PA-C Unavailable Summer Lara MD Unavailable [phone] Summer Lara MD Unavailable [phone] Summer Lara MD Unavailable [phone] Tavia Wyatt MD Unavailable Unavailable SembraJohnny ortiz MD Unavailable +[phone] Erica Farrell GAS WORKER NAVY AIRSPACE OFFICER Unavailable + Teresita Bean [facility] Unavailable Tavia Wyatt MD Unavailable Unavailable Diana Desir [facility] Unavailable [phone] Rich Barrett MD Unavailable +[phone] Neil Kent MD Unavailable Roney Story DPM Unavailable [phone] Erica Farrell GAS WORKER NAVY AIRSPACE OFFICER Unavailable + Diana Desir [facility] Unavailable [phone] Jelena David Radha Unavailable Galo Burrell MD Unavailable Unavailable Livan Sharif MD Unavailable + Livan Sharif MD Unavailable + Catherine Cm MD Unavailable + Valery Veronica PA-C Unavailable + [phone] Catherine Cm MD Unavailable + Johnny Murillo MD Unavailable +1- Brea Quinn GAS WORKER NAVY AIRSPACE OFFICER Unavailable +1- Brea Quinn GAS WORKER NAVY AIRSPACE OFFICER Unavailable [phone] Jose Francisco Johnson MD Unavailable Livan Sharif MD Unavailable + Catherine Cm MD Unavailable + Sydnie Maritnez RN Unavailable Unavailable Alfonso Renteria MD Unavailable [phone] Esha GrimmC Primary Care Provider Cheng ToddC Unavailable Radha Lomeli APRN NAVY AIRSPACE OFFICER Unavailable [phone] Jelena David OD Unavailable [phone] Pao Joseph RN Unavailable Unavailable Esha Grimm PA-C Unavailable [phone] Valery VeronicaC Unavailable [phone] Rey Tay MD Unavailable Rocky Zepeda DO Unavailable Philip Dumont MD Unavailable [phone] Encounter Details Date Type Department Care Team (Late st Contact Info) Description 08/24/2020 MyC Medical Advice [address] [address] Marija Edgar, ARLENE NAVY AIRSPACE OFFICER Social History Tobacco Use Types Packs/Day Years [...] How often do you attend chur or baptist services? More than 4 times per year 08/07/2020 Do you belong to any clubs o r organizations such as mandaeism groups, unions, fraternal or athletic groups, [...] Answer Date Recorded PHQ-2 Score 0 08/12/2020 [facility] - Occupational Stress Questionnaire Answer [...] in a detention (including now)? No 08/11/2020 Education Answer Date [...] have Coronavirus / COVID-19? No / Unsure 08/20/2020 12:47 PM ARMHOLE BASTER JUMPBASTING documented as of this encounter Miscellaneous Notes * Telephone Encounter - Marija Edgar APRN CNP - 08/25/2020 11:47 AM ARMHOLE BASTER JUMPBASTING Replied via MyChart Marija Edgar APRN CNP on 08/25/2020 at 11:51 AM OLE BASTER JUMPBASTING documented in this encounter Plan of Treatment Upcoming Encounters Date Type Department Care Team (Late st Contact Info) Description 10/25/2023 11:30 AM CDT Virtual Visit [facility] Gastro[facility] Clinic [address] [place] [address] Nelly [address], RD 909 [place] [address] 11/03/2023 8:00 AM CDT Office Visit [facility] 830 [place] [phone] Valery Veronica PA-C 909 [place] [address] 11/29/2023 8:00 AM CDT Office Visit [facility] [phone] [place] [address] Esha Grimm PA-C [address] [place] [address] 01/02/2024 8:00 AM CDT Office Visit [facility] [address] [place] [phone] Lauren Claudio PA-C [address] [place] [address] Kelli Perez MD [address] [facility] 106 [place], [place] [phone] documented as of this encounter Visit Diagnoses Not on filedocumented in this encounter Additional Health Concerns Infection Onset Date Last Indicated Resolved Time Rule Out COVID-19 08/30/2020 08/30/2020 08/30/2020 5:05 PM ARMHOLE BASTER JUMPBASTING Rule Out COVID-19 09/24/2020 09/24/2020 09/24/2020 9:24 AM CDT Rule Out COVID-19 11/05/2020 11/05/2020 11/06/2020 1:09 PM CDT Rule Out COVID-19 05/11/2021 05/11/2021 05/13/2021 10:18 AM CDT Rule Out COVID-19 07/13/2021 07/13/2021 07/14/2021 3:04 PM ARMHOLE BASTER JUMPBASTING Rule Out COVID-19 07/18/2021 07/18/2021 07/20/2021 1:56 PM ARMHOLE BASTER JUMPBASTING COVID-19 07/18/2021 07/18/2021 08/08/2021 11:3 9 PM ARMHOLE BASTER JUMPBASTING Rule Out COVID-19 12/18/2021 12/18/2021 12/19/2021 11:34 AM CDT Rule Out COVID-19 02/24/2022 02/24/2022 02/25/2022 1:08 PM CDT Rule Out COVID-19 04/26/2022 04/26/2022 04/26/2022 6:47 AM CDT Rule Out COVID-19 05/17/2022 05/17/2022 05/17/2022 10:20 PM ARMHOLE BASTER JUMPBASTING Rule Out COVID-19 06/09/2022 06/09/2022 06/09/2022 9:35 AM ARMHOLE BASTER JUMPBASTING COVID-19 06/09/2022 06/09/2022 06/30/2022 11:4 1 PM ARMHOLE BASTER JUMPBASTING Rule Out COVID-19 11/10/2022 11/10/2022 11/11/2022 12:17 PM CDT Rule Out COVID-19 03/07/2023 03/07/2023 03/07/2023 1:20 PM CDT Assessment Noted Time PHQ-9 Depression Total Score: 9 06/25/20 20 7:04 AM ARMHOLE BASTER JUMPBASTING documented as of this encounter Care Teams Utility Bag Assembler Relationship Specialty Start Date End Date Marija Edgar APRN NAVY AIRSPACE OFFICER PCP - General Nurse Practitioner 04/30/20 04/14/23 Esha Grimm PA-C [address] [place] [phone] PCP - General Family Medicine 05/04/23 Lita Oseguera Personal Advocate & Liaison (PAL) 02/28/20 03/27/23 Chanelle Mccann APRN CNM [address] [place] [address] Assigned OBGYN Provider 05/02/2005/09 Kyara De La Fuente, RN Specialty Financial Analyst Accountant Neurology 06/04/20 03/05/21 Marija Edgar APRN NAVY AIRSPACE OFFICER Assigned PCP 06/08/20 04/29/23 Mynor Broussard MD [address] [facility] [address] 500 [place] [address] Assigned Surgical Provider 06/01/20 11/28/21 Keisha Dotson MD 909 [place], [place] 121465 Assigned Neuroscience Provider 06/04/20 04/01/23 Stacey Briones, [facility] Lead Financial Analyst Accountant Primary Care - CC 08/11/2012/30 Lesley Moody, [facility] Community Health Worker 08/11/2010/01 Mary Mejia Financial Resource Worker 09/02/20 10/06/20 Lita Oseguera Personal Advocate & Liaison (PAL) Family Medicine 09/10/20 09/21/20 Galo Burrell MD Assigned Heart and Vascular Provider 10/05/20 04/02/22 Cristina Wood Financial Resource Worker 10/07/20 10/14/20 Lesley Moody, [facility] Community Health Worker 10/23/2012/30 Meredith Bedoya Financial Resource Worker 10/23/20 11/23/20 Cristina Wood Financial Resource Worker 02/09/21 02/09/21 Thang Diana Stanislav, [facility] [address] [place] [address] Pharmacist Pharmacist 04/17/21 Rain Galaviz PA-C [address] [place] [address] [place] [address] Physician Gardening Supervisor Dermatology 04/28/21 Summer Lara MD [address] [place] [address] Assigned OBGYN Provider 05/10/2105/23 Summer Lara MD [address] [place] [address] Assigned OBGYN Provider 05/31/21 Summer Lara MD [address] [place] [address] Assigned OBGYN Provider 05/24/2105/30 Tavia Wyatt MD [address] [place] [address] Dermatology 07/14/21 Johnny Murillo MD [address] [place] [address] Assigned Musculoskeletal Provider 08/30/21 03/17/22 Erica Farrell APRN NAVY AIRSPACE OFFICER [address] [facility] [address] [place] [address] Nurse Practitioner Cardiovascular Disease 09/09/21 Teresita Bean [facility] [address] [facility] [address] [place] [phone] Pharmacist Pharmacist 09/24/21 09/29/21 Tavia Wyatt MD Assigned Surgical Provider 11/29/21 05/07/22 Diana Desir, [facility] 3033 [place] [address] Assigned MTM Pharmacist 01/02/22 Rich Barrett MD [address] [place] [address] Physician Ophthalmology 01/21/22 Neil Kent MD 500 [place] [address] Dermatology 02/24/22 [place] [address] [facility] 300 [place] [address] Assigned Musculoskeletal Provider 03/20/22 08/13/22 Erica Farrell APRN NAVY AIRSPACE OFFICER 1700 [place] [address] Assigned Heart and Vascular Provider 04/03/22 04/16/22 Diana Desir, [facility] [address] [place] [address] Assigned MTM Pharmacist 04/07/22 Jelena David OD [address] [place] [address] Assigned Surgical Provider 05/08/22 10/08/22 Galo Burrell MD Assigned Heart and Vascular Provider 04/17/22 06/11/22 Livan Sharif MD [address], [facility] [address] [place] [address] Cardiovascular Disease 05/14/22 Livan Sharif MD [address], [facility] [address] [place] [address] Assigned Heart and Vascular Provider 06/12/22 07/23/22 Catherine mC MD [address] [facility] [address] [place] 8[address]85 Cardiovascular Disease 07/21/22 Valery Veronica, PA-C [address] [place] [address] 698385 Physician Gardening Supervisor Dermatology 07/21/22 Catherine Cm MD [address] [place] 256[address] Assigned Heart and Vascular Provider 07/24/22 11/05/22 Johnny Murillo MD [address] [phone] Assigned Musculoskeletal Provider 08/14/22 10/08/22 Brea Quinn APRN NAVY AIRSPACE OFFICER [address] [place] [address] 511035 Nurse Practitioner Dermatology 09/21/22 Brea Quinn, GAS WORKER NAVY AIRSPACE OFFICER 64[address] [facility] [address]062 Assigned Surgical Provider 10/09/22 [place] [address] [address] Assigned Musculoskeletal Provider 10/09/22 Livan Sharif MD [address], [facility] [address] [place] [address] Assigned Heart and Vascular Provider 11/06/22 11/12/22 Catherine Cm MD [address] [place] [address] Assigned Heart and Vascular Provider 11/13/22 05/27/23 JuanSydnie malik, RN Personal Advocate & Liaison (PAL) Family Medicine 03/28/23 07/31/23 Alfonso Renteria MD [address] [facility] 200 [place] [address] Assigned Neuroscience Provider 04/02/23 Cheng Todd PA-C [address] [place] [address] Assigned PCP 04/30/23 07/15/23 Radha Lomeli APRN NAVY AIRSPACE OFFICER [address] [place] [address] Assigned Heart and Vascular Provider 05/28/23 Jelena David OD [address] [place] [address] Ophthalmology 06/15/23 Pao Joseph, RN Personal Advocate & Liaison (PAL) Nurse 08/01/23 Esha Grimm PA-C [address] [place] [phone] Assigned PCP 07/16/23 Valery Veronica PA-C 909 [place] [address] Physician Gardening Supervisor Dermatology 09/19/23 Rey Tay MD [address] [place] [address] 952775 Gastroenterology 09/20/23 Rocky Zepdea DO [address] [place] [address] [phone] Physician Gastroenterology 09/20/23 Philip Dumont MD [address] [place] [address] 567585 Physician Ophthalmology 09/22/23 documented as of this encounter
--- OUTSIDE RECORDS SUMMARY | 2023-10-15 21:59 | XMS_ITS | Encounter Summary ---
Author Name Unknown Organization [facility] Address [address] [place] [address] Care Team Providers Care Tobacco Roller Name Role Phone Lita Oseguera Unavailable Unavailable Marija Edgar APRN INTERNAL MEDICINE PHYSICIAN Primary Care Provider Chanelle Gutierrez APRN CNM Unavailab le Kyara De La Fuente RN Unavailable [phone] Marija Edgar APRN INTERNAL MEDICINE PHYSICIAN Unavailable Unavail able Mynor Broussard MD Unavailable [phone] Keisha Dotson MD Unavailable Stacey Briones POLICY ADVISOR Unavailable Lesley Moody CHW Unavailable Mary Mejia Unavailable Unavailable Lita Oseguera Unavailable Unavailable Galo Burrell MD Unavailable Unavailable Cristina Wood Unavailable Lesley Moody CHW Unavailable Meredith Bedoya Unavailable Unavailable Cristina Wood Unavailable Diana Desir [facility] Unavailable Rain Galaviz PA-C Unavailable Summer Lara MD Unavailable [phone] Summer Lara MD Unavailable [phone] Summer Lara MD Unavailable [phone] Tavia Wyatt MD Unavailable Unavailable SembraJohnny ortiz MD Unavailable [phone] Erica Farrell VENDING 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 INTERNAL MEDICINE PHYSICIAN Unavailable + Teresita Bean [facility] Unavailable Tavia Wyatt MD Unavailable Unavailable Diana Desir [facility] Unavailable [phone] Rich Barrett MD Unavailable +[phone] Neil Kent MD Unavailable Roney Story DPM Unavailable [phone] Erica Farrell VENDING 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 INTERNAL MEDICINE PHYSICIAN Unavailable + Diana Desir [facility] Unavailable [phone] Jelena David Radha Unavailable Galo Burrell MD Unavailable Unavailable Livan Sharif MD Unavailable + Livan Sharif MD Unavailable + Catherine Cm MD Unavailable + Valery Veronica PA-C Unavailable + [phone] Catherine Cm MD Unavailable + Johnny Murillo MD Unavailable +1- Brea Quinn VENDING 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 INTERNAL MEDICINE PHYSICIAN Unavailable +1- Brea Quinn VENDING 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 INTERNAL MEDICINE PHYSICIAN Unavailable [phone] Jose Francisco Johnson MD Unavailable Livan Sharif MD Unavailable + Catherine Cm MD Unavailable + Sydnie Martinez RN Unavailable Unavailable Alfonso Renteria MD Unavailable [phone] Esha GrimmC Primary Care Provider Cheng ToddC Unavailable Radha Lomeli APRN INTERNAL MEDICINE PHYSICIAN Unavailable [phone] Jelena David OD Unavailable Pao Joseph RN Unavailable Unavailable Esha Grimm PA-C Unavailable [phone] Valery VeronicaC Unavailable [phone] Rey Tay MD Unavailable Rocky Zepeda DO Unavailable Philip Dumont MD Unavailable [phone] Reason for Visit * Reason Onset Date Comments Patient/info Update 08/31/2020 appointment request Encounter Details Date Type Department Care Team (Late st Contact Info) Description 08/31/2020 [facility] Medical Advice [address] [address] Marija Edgar APRN CNP Patient/info Update (appointment request ) Social History Tobacco Use Types Packs/Day [...] How often do you attend chur or taoist services? More than 4 times per year [...] Answer Date Recorded PHQ-2 Score 0 08/12/2020 [facility] Answer Date Recorded [...] in a fci (including now)? No 08/11/2020 Education Answer Date [...] have Coronavirus / COVID-19? No / Unsure 09/03/2020 12:11 PM BROACH OPERATOR documented as of this encounter Miscellaneous Notes * Telephone Encounter - Maryjane Mccallum RN - 09/01/2020 7:21 AM BROACH OPERATOR Patient sent message requesting office visit with Marija Edgar CNP, was unable to get to clinic to schedule Would like to f/u on zio patch and plan of care - RN scheduled appt - send my chart message to patient with time/date of appt and asked that she return call or my chart message if this time will not work to reschedule Next 5 appointments (look out 90 days) Sep 02, 2020 1:30 PM (Arrive by 1:10 PM) Office Visit with Marija Gilland, VENDING 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 INTERNAL MEDICINE PHYSICIAN [facility] ([facility] ) [address] [facility] [phone] Maryjane Mccallum, Registered Nurse [facility] CH OPERATOR documented in this encounter Plan of Treatment Upcoming Encounters Date Type Department Care Team (Late st Contact Info) Description 10/25/2023 11:30 AM CDT Virtual Visit [facility] [address] [place] [phone] N[address], RD [address] [place] [address] 11/03/2023 8:00 AM CDT Office Visit [address] [phone] Valery Veronica PA-C [address] [place] [address] 11/29/2023 8:00 AM CDT Office Visit [facility] [address] [place] [phone] Esha Grimm PA-C [address] [place] [address] 01/02/2024 8:00 AM CDT Office Visit [facility] [place] [address] [place] [phone] Lauren Claudio PA-C [address] [place], [place] [phone] Kelli Perez MD [address] [place] [address] [phone] documented as of this encounter Visit Diagnoses Not on filedocumented in this encounter Additional Health Concerns Infection Onset Date Last Indicated Resolved Time Rule Out COVID-19 09/24/2020 09/24/2020 09/24/2020 9:24 AM CDT Rule Out COVID-19 11/05/2020 11/05/2020 11/06/2020 1:09 PM CDT Rule Out COVID-19 05/11/2021 05/11/2021 05/13/2021 10:18 AM CDT Rule Out COVID-19 07/13/2021 07/13/2021 07/14/2021 3:04 PM BROACH OPERATOR Rule Out COVID-19 07/18/2021 07/18/2021 07/20/2021 1:56 PM BROACH OPERATOR COVID-19 07/18/2021 07/18/2021 08/08/2021 11:3 9 PM BROACH OPERATOR Rule Out COVID-19 12/18/2021 12/18/2021 12/19/2021 11:34 AM CDT Rule Out COVID-19 02/24/2022 02/24/2022 02/25/2022 1:08 PM CDT Rule Out COVID-19 04/26/2022 04/26/2022 04/26/2022 6:47 AM CDT Rule Out COVID-19 05/17/2022 05/17/2022 05/17/2022 10:20 PM BROACH OPERATOR Rule Out COVID-19 06/09/2022 06/09/2022 06/09/2022 9:35 AM BROACH OPERATOR COVID-19 06/09/2022 06/09/2022 06/30/2022 11:4 1 PM BROACH OPERATOR Rule Out COVID-19 11/10/2022 11/10/2022 11/11/2022 12:17 PM CDT Rule Out COVID-19 03/07/2023 03/07/2023 03/07/2023 1:20 PM CDT Assessment Noted Time PHQ-9 Depression Total Score: 9 06/25/20 20 7:04 AM BROACH OPERATOR documented as of this encounter Care Teams Tobacco Roller Relationship Specialty Start Date End Date Marija Edgar APRN INTERNAL MEDICINE PHYSICIAN PCP - General Nurse Practitioner 04/30/20 04/14/23 Esha Grimm PA-C [address] [place] [phone] PCP - General Family Medicine 05/04/23 Lita Oseguera Personal Advocate & Liaison (PAL) 02/28/20 03/27/23 [place] [address] [address] [facility], [facility] [address] [place], [place] [phone] Assigned OBGYN Provider 05/02/2005/09 Kyara De La Fuente, RN Specialty Equipment Processer Storage Neurology 06/04/20 03/05/21 Marija Edgar APRN INTERNAL MEDICINE PHYSICIAN Assigned PCP 06/08/20 04/29/23 Mynor Broussard MD [address] [facility] [address] [place], [place] [address] Assigned Surgical Provider 06/01/20 11/28/21 Keisha Dotson MD [address] [place], [place] [phone] Assigned Neuroscience Provider 06/04/20 04/01/23 Stacey Briones, POLICY ADVISOR Lead Equipment Processer Storage Primary Care - CC 08/11/2012/30 Lesley Moody, W Community Health Worker 08/11/2010/01 Mary Mejia Financial Resource Worker 09/02/20 10/06/20 Lita Oseguera Personal Advocate & Liaison (PAL) Family Medicine 09/10/20 09/21/20 Galo Burrell MD Assigned Heart and Vascular Provider 10/05/20 04/02/22 Cristina Wood Financial Resource Worker 10/07/20 10/14/20 Lesley Moody, [facility] Community Health Worker 10/23/2012/30 Meredith Bedoya Financial Resource Worker 10/23/20 11/23/20 Cristina Wood Financial Resource Worker 02/09/21 02/09/21 Diana Desir, [facility] [address] [place], [place] [address] Pharmacist Pharmacist 04/17/21 Rain Galaviz PA-C [address] [place] [address] [place] [address] Physician Tugger Operator Dermatology 04/28/21 Summer Lara MD [address] [place] [address] 038574 Assigned OBGYN Provider 05/10/2105/23 Summer Lara MD [address] [place] [address] [phone] Assigned OBGYN Provider 05/31/21 2 Summer Lara MD [address] [place] [address] 319504 Assigned OBGYN Provider 05/24/2105/30 Tavia Wyatt MD [address] [place] [address] Dermatology 07/14/21 Johnny Murillo MD [address] [place] [address] Assigned Musculoskeletal Provider 08/30/21 03/17/22 Erica Farrell APRN INTERNAL MEDICINE PHYSICIAN [address] [facility] [address] [place] [address] Nurse Practitioner Cardiovascular Disease 09/09/21 Teresita Bean, [facility] [address] [place] [id number] Pharmacist Pharmacist 09/24/21 09/29/21 Tavia Wyatt MD Assigned Surgical Provider 11/29/21 05/07/22 [facility] [address] [place] [address] Assigned MTM Pharmacist 01/02/22 Rich Barrett MD [address] [facility] [address] [place] [address] Physician Ophthalmology 01/21/22 Neil Kent MD [address] [place] [address] Dermatology 02/24/22 Roney Story DPM [address] [facility] [address] [place] [address] Assigned Musculoskeletal Provider 03/20/22 08/13/22 Erica Farrell APRN INTERNAL MEDICINE PHYSICIAN [address] [place] [address] Assigned Heart and Vascular Provider 04/03/22 04/16/22 Diana Desir, [facility] [address] [place] [address] Assigned [place] Pharmacist 04/07/22 [place] [address] [facility] [place] [id number] Assigned Surgical Provider 05/08/22 10/08/22 Galo Burrell MD Assigned Heart and Vascular Provider 04/17/22 06/11/22 Livan Sharif MD [address], [address] [place] [id number] Cardiovascular Disease 05/14/22 Livan Sharif MD [address] [place] [id number] Assigned Heart and Vascular Provider 06/12/22 07/23/22 Catherine Cm MD [address] [place] 654355 Cardiovascular Disease 07/21/22 Valrey Veronica, PAUcheC [address] [place], [place] 15[address] Physician Tugger Operator Dermatology 07/21/22 Catherine Cm MD [address] [place] 019125 Assigned Heart and Vascular Provider 07/24/22 11/05/22 Johnny Murillo MD [facility] [address] Assigned Musculoskeletal Provider 08/14/22 10/08/22 Brea Quinn APRN INTERNAL MEDICINE PHYSICIAN [address] [place] [address] Nurse Practitioner Dermatology 09/21/22 Brea Quinn APRN INTERNAL MEDICINE PHYSICIAN [facility] [place] [address] Assigned Surgical Provider 10/09/22 [place] [address] [address] Assigned Musculoskeletal Provider 10/09/22 Livan Sharif MD [address] [facility] [address] [place] [address] Assigned Heart and Vascular Provider 11/06/22 11/12/22 Catherine Cm MD [address] [facility] [place] [address] Assigned Heart and Vascular Provider 11/13/22 05/27/23 Sydnie Martinez, VJ Personal Advocate & Liaison (PAL) Family Medicine 03/28/23 07/31/23 Alfonso Renteria MD [address] [facility] [address] [place], [place] 6064[address] Assigned Neuroscience Provider 04/02/23 Cheng Todd PA-C [address] [place], [place] [phone] Assigned PCP 04/30/23 07/15/23 Radha Lomeli APRN INTERNAL MEDICINE PHYSICIAN [address] [place] [address] Assigned Heart and Vascular Provider 05/28/23 Jelena David OD [address] [facility] [address] [place] [id number] Ophthalmology 06/15/23 Pao Joseph, VJ Personal Advocate & Liaison (PAL) Nurse 08/01/23 Esha Grimm PA-C [address] [place] [phone] Assigned PCP 07/16/23 Valery Veronica PA-C [address] [place] [address] [id number] Physician Tugger Operator Dermatology 09/19/23 Rey Tay MD [address] [place] [address] [phone] Gastroenterology 09/20/23 Rocky Zepeda DO [address] [place] [address] [phone] Physician Gastroenterology 09/20/23 Philip Dumont MD [address] [place] [address] 911975 Physician Ophthalmology 09/22/23 documented as of this encounter
--- OUTSIDE RECORDS SUMMARY | 2023-10-15 21:59 | XMS_ITS | Encounter Summary ---
Author Name Unknown Organization [facility] Address [address] [place] [address] Care Team Providers Care Half Sole Fitter Name Role Phone Lita Oseguera Unavailable Unavailable Marija Edgar APRN STUDENT SERVICES COORDINATOR Primary Care Provider Chanelle Gut[facility] [place] LAN ENGINEER CNM Unavailab le Kyara De La Fuente RN Unavailable [phone] Marija Edgar APRN STUDENT SERVICES COORDINATOR Unavailable Unavail able Mynor Broussard MD Unavailable [phone] Keisha Dotson MD Unavailable Mary Mejia Unavailable Unavailable Stacey Briones [facility] Unavailable Lesley Moody CHW Unavailable Mary Mejia Unavailable Unavailable Lita Oseguera Unavailable Unavailable Galo Burrell MD Unavailable Unavailable Cristina Wood Unavailable Lesley Moody CHW Unavailable [phone] Meredith Bedoya Unavailable Unavailable Cristina Wood Unavailable Diana Desir [facility] Unavailable Rain Galaviz PA-C Unavailable Summer Lara MD Unavailable [phone] Summer Lara MD Unavailable [phone] Summer Lara MD Unavailable + [phone] Tavia Wyatt MD Unavailable Unavailable Johnny Murillo MD Unavailable +1- Erica Farrell LAN ENGINEER STUDENT SERVICES COORDINATOR Unavailable + VikasTeresita RPH Unavailable Tavia Wyatt MD Unavailable Unavailable Diana Desir [facility] Unavailable [phone] Rich Barrett MD Unavailable [phone] Neil Kent MD Unavailable Roney Story DPM Unavailable [phone] Erica Farrell LAN ENGINEER STUDENT SERVICES COORDINATOR Unavailable + Diana Desir [facility] Unavailable [phone] Jelena David OD Unavailable [phone] Galo Burrell MD Unavailable Unavailable Livan Sharif MD Unavailable + Livan Sharif MD Unavailable + Catherine Cm MD Unavailable + Valery Veronica PA-C Unavailable + [phone] Catherine Cm MD Unavailable + Johnny Murillo MD Unavailable +1- Brea Quinn APRN STUDENT SERVICES COORDINATOR Unavailable [phone] Brea Quinn LAN ENGINEER STUDENT SERVICES COORDINATOR Unavailable [phone] Jose Francisco Johnson MD Unavailable Livan Sharif MD Unavailable + Catherine Cm MD Unavailable + Sydnie Martinez RN Unavailable Unavailable Alfonso Renteria MD Unavailable [phone] Esha GrimmC Primary Care Provider [phone] Cheng ToddC Unavailable [phone] Radha Lomeli APRN STUDENT SERVICES COORDINATOR Unavailable Jelena David OD Unavailable [phone] Pao Joseph RN Unavailable Unavailable Esha Grimm PA-C Unavailable Valery VeronicaC Unavailable [phone] Rey Tay MD Unavailable Rocky Zepeda DO Unavailable Philip Dumont MD Unavailable [phone] Encounter Details Date Type Department Care Team (Late st Contact Info) Description 07/17/2020 MyC Medical Advice [facility] Epilepsy Care [address] [facility], [address] [place] [address] Keisha Dotson MD [address] [place] [address] Social History Tobacco Use Types [...] COVID-19? No / Unsure 06/24/2020 3:01 PM ARMORED CAR GUARD documented as of this encounter Miscellaneous Notes * Telephone Encounter - Kyara De La Fuente RN - 07/23/2020 1:41 PM CST Patient contacted the office by Kim to report intolerability of levetiracetam. She stayed on 500 mg twice a day but felt considerably fatigued so she reduced to 500 mg a day. She's been on this dose for a while now. Yesterday she had a bad day, was upset, had panic and a fleeting thought of lazo icide. She denies every having considered a plan and clearly denies any intent. She recognized thatthis was unusual for her and contacted us to discuss if it could be related to her medication. She told me that she would seek help if needed for more serious suicidal thoughts. She is now about 12 weeks . JANEE February 03 2021. She asks if she can discontinue the medication since she was told in the past that she only had normal changes on her eeg that didn't mean epilepsy on their own. Her previous neurologist told her shewouldn't need medication her whole life. RED CAR GUARD documented in this encounter Plan of Treatment Upcoming Encounters Date Type Department Care Team (Late st Contact Info) Description 10/25/2023 11:30 AM CDT Virtual Visit [facility] [address] [place] [phone] Nelly [place], RD [address] [place] [address] 11/03/2023 8:00 AM CDT Office Visit [address] [phone] Valery Veronica, PAUcheC [address] [place] [address] 11/29/2023 8:00 AM CDT Office Visit [address] [place] [phone] Esha Grimm PA-C [address] [place] [phone] 01/02/2024 8:00 AM CDT Office Visit [facility] [address] [place] [phone] Lauren Claudio PA-C [address] [place] [address] Kelli Perez MD [address] [id number] documented as of this encounter Visit Diagnoses Not on filedocumented in this encounter Additional Health Concerns Infection Onset Date Last Indicated Resolved Time Rule Out COVID-19 07/30/2020 07/30/2020 07/30/2020 7:11 PM ARMORED CAR GUARD Rule Out COVID-19 08/30/2020 08/30/2020 08/30/2020 5:05 PM ARMORED CAR GUARD Rule Out COVID-19 09/24/2020 09/24/2020 09/24/2020 9:24 AM CDT Rule Out COVID-19 11/05/2020 11/05/2020 11/06/2020 1:09 PM CDT Rule Out COVID-19 05/11/2021 05/11/2021 05/13/2021 10:18 AM CDT Rule Out COVID-19 07/13/2021 07/13/2021 07/14/2021 3:04 PM ARMORED CAR GUARD Rule Out COVID-19 07/18/2021 07/18/2021 07/20/2021 1:56 PM ARMORED CAR GUARD COVID-19 07/18/2021 07/18/2021 08/08/2021 11:3 9 PM ARMORED CAR GUARD Rule Out COVID-19 12/18/2021 12/18/2021 12/19/2021 11:34 AM CDT Rule Out COVID-19 02/24/2022 02/24/2022 02/25/2022 1:08 PM CDT Rule Out COVID-19 04/26/2022 04/26/2022 04/26/2022 6:47 AM CDT Rule Out COVID-19 05/17/2022 05/17/2022 05/17/2022 10:20 PM ARMORED CAR GUARD Rule Out COVID-19 06/09/2022 06/09/2022 06/09/2022 9:35 AM ARMORED CAR GUARD COVID-19 06/09/2022 06/09/2022 06/30/2022 11:4 1 PM ARMORED CAR GUARD Rule Out COVID-19 11/10/2022 11/10/2022 11/11/2022 12:17 PM CDT Rule Out COVID-19 03/07/2023 03/07/2023 03/07/2023 1:20 PM CDT Assessment Noted Time PHQ-9 Depression Total Score: 9 06/25/20 7:04 AM ARMORED CAR GUARD documented as of this encounter Care Teams Half Sole Fitter Relationship Specialty Start Date End Date Marija Edgar APRN STUDENT SERVICES COORDINATOR PCP - General Nurse Practitioner 04/30/20 04/14/23 Esha Grimm PAUcheC [address] [place] [phone] PCP - General Family Medicine 05/04/23 Lita Oseguera Personal Advocate & Liaison (PAL) 02/28/20 03/27/23 Chanelle Mccann APRN CNAdam [address] [address] [facility], [address] [address] Assigned OBGYN Provider 05/02/2005/09 Kyara De La Fuente, VJ Specialty Educational Advisor Neurology 06/04/20 03/05/21 Marija Edgar APRN STUDENT SERVICES COORDINATOR Assigned PCP 06/08/20 04/29/23 Mynor Broussard MD [address] [place], [place] [phone] Assigned Surgical Provider 06/01/20 11/28/21 Keisha Dotson MD [address] [place], [place] 113[address] Assigned Neuroscience Provider 06/04/20 04/01/23 Mary Mejia Financial Resource Worker 08/07/20 08/21/20 Stacey Briones, [facility] Lead Educational Advisor Primary Care - CC 08/11/2012/30 Lesley Moody, [facility] Community Health Worker 08/11/2010/01 Mary Mejia Financial Resource Worker 09/02/20 10/06/20 Lita Oseguera Personal Advocate & Liaison (PAL) Family Medicine 09/10/20 09/21/20 Galo Burrell MD Assigned Heart and Vascular Provider 10/05/20 04/02/22 Cristina Wood Financial Resource Worker 10/07/20 10/14/20 Lesley Moody, [facility] Community Health Worker 10/23/2012/30 Meredith Bedoya Financial Resource Worker 10/23/20 11/23/20 Cristina Wood Financial Resource Worker 02/09/21 02/09/21 Diana Desir, [facility] [address] [place] [address] Pharmacist Pharmacist 04/17/21 Rain Galaviz PA-C [address] [place] [address] [address] [place] [address] Physician General Superintendent Dermatology 04/28/21 Summer Lara MD [address] [facility] [place] [address] Assigned OBGYN Provider 05/10/2105/23 Summer Lara MD [address] [facility] [place] [address] Assigned OBGYN Provider 05/31/21 Summer Lara MD [address] [place] [address] [place] [address] Assigned OBGYN Provider 05/24/2105/30 Tavia Wyatt MD [address] [place] [address] Dermatology 07/14/21 Johnny Murillo MD [facility] [address] [place] [address] Assigned Musculoskeletal Provider 08/30/21 03/17/22 Erica Farrell APRN [facility] [address] [facility] [address] [place] [address] Nurse Practitioner Cardiovascular Disease 09/09/21 Teresita Bean [facility] [address] [place] [address] Pharmacist Pharmacist 09/24/21 09/29/21 Tavia Wyatt MD Assigned Surgical Provider 11/29/21 05/07/22 [facility] [address] [place] [address] Assigned MTM Pharmacist 01/02/22 Rich Barrett MD [address] [facility], [address] [phone] Physician Ophthalmology 01/21/22 Neil Kent MD [address] [place], [place] 252165 Dermatology 02/24/22 Roney Story DPM [address] [facility] [address] [place], [place] 9[address] Assigned Musculoskeletal Provider 03/20/22 08/13/22 Erica Farrell APRN STUDENT SERVICES COORDINATOR [address] [place] [address] Assigned Heart and Vascular Provider 04/03/22 04/16/22 Diana Desir, [facility] [address] [place] [address] Assigned MTM Pharmacist 04/07/22 Jelena David OD [address] [facility] [place] [address] Assigned Surgical Provider 05/08/22 10/08/22 Galo Burrell MD Assigned Heart and Vascular Provider 04/17/22 06/11/22 Livan Sharif MD [address] [facility] [address] [place] [address] Cardiovascular Disease 05/14/22 Livan Sharif MD [address] [facility] [place] [phone] [place] [address]375 Assigned Heart and Vascular Provider 06/12/22 07/23/22 Catherine Cm MD [address] [place] [phone] [place] [address] Cardiovascular Disease 07/21/22 Valery Veronica, PA-C [address] [place] [address] 015415 Physician General Superintendent Dermatology 07/21/22 Catherine Cm MD [address] [address] Assigned Heart and Vascular Provider 07/24/22 11/05/22 Johnny Murillo MD [address] [place] [address] 673604 Assigned Musculoskeletal Provider 08/14/22 10/08/22 Brea Quinn APRN STUDENT SERVICES COORDINATOR [address] [place] [address] [phone] Nurse Practitioner Dermatology 09/21/22 Brea Quinn APRN STUDENT SERVICES COORDINATOR [address] [place] [address] 140262 Assigned Surgical Provider 10/09/22 [place] [address] [place] [address] Assigned Musculoskeletal Provider 10/09/22 Livan Sharif MD [address], [facility] [address] [place] [address] Assigned Heart and Vascular Provider 11/06/22 11/12/22 Catherine Cm MD [address] [facility] [address] [place] [address] Assigned Heart and Vascular Provider 11/13/22 05/27/23 Sydnie Martinez RN Personal Advocate & Liaison (PAL) Family Medicine 03/28/23 07/31/23 Alfonso Renteria MD [address] [facility] [address] [place] [address] Assigned Neuroscience Provider 04/02/23 Cheng Todd PA-C [address] [place], [place] [id number] Assigned PCP 04/30/23 07/15/23 Radha Lomeli, ARLENE STUDENT SERVICES COORDINATOR [address] [place] [address] Assigned Heart and Vascular Provider 05/28/23 Jelena David OD [address] [facility] [place] [address] Ophthalmology 06/15/23 Pao Joseph RN Personal Advocate & Liaison (PAL) Nurse 08/01/23 Esha Grimm PAUcheC [address] [place] [address] Assigned PCP 07/16/23 Valery Veronica PA-C [address] [place], [place] [address] Physician General Superintendent Dermatology 09/19/23 Rey Tay MD [address] [place] [address] 137655 Gastroenterology 09/20/23 Rocky Zepeda DO [address] [place] [address] [phone] Physician Gastroenterology 09/20/23 Philip Dumont MD [address] [place] [address] 246875 Physician Ophthalmology 09/22/23 documented as of this encounter
--- OUTSIDE RECORDS SUMMARY | 2023-10-15 22:00 | XMS_ITS | Encounter Summary ---
Author Name Unknown Organization [facility] Address [address] [place] [address] Care Team Providers Care Bank Officer Name Role Phone Lita Oseguera Unavailable Unavailable Rakesh Cid PA-C Unavailable [phone] Marija Edgar APRN PROCUREMENT COST COORDINATOR Primary Care Provider Chanelle Gutierrez MARKET RESEARCH INTERVIEWER CNM Unavailab le Lesley Moody CHW Unavailable Kyara De La Fuente RN Unavailable [phone] Marija Edgar APRN PROCUREMENT COST COORDINATOR Unavailable Unavail able Mynor Broussard MD Unavailable [phone] Keisha Dotosn MD Unavailable [phone] Mary Mejia Unavailable Unavailable Stacey Briones MANAGEMENT ACCOUNTS MANAGER Unavailable [phone] Lesley Moody CHW Unavailable Mary Mejia Unavailable Unavailable Lita Oseguera Unavailable Unavailable Galo Burrell MD Unavailable Unavailable Cristina Wood Unavailable Lesley Moody CHW Unavailable [phone] Meredith Bedoya Unavailable Unavailable Cristina Wood Unavailable Diana Desir [facility] Unavailable [phone] Anastacia Rain Paredes PA-C Unavailable [phone] Summer Lara MD Unavailable +[phone] Summer Lara MD Unavailable +[phone] Summer Lara MD Unavailable [phone] Tavia Wyatt MD Unavailable Unavailable Johnny Murillo MD Unavailable +1- Erica Farrell MARKET RESEARCH INTERVIEWER PROCUREMENT COST COORDINATOR Unavailable + VikasTeresita [facility] Unavailable Tavia Wyatt MD Unavailable Unavailable Desir Diana [place] [facility] Unavailable [phone] Rich Barrett MD Unavailable [phone] Neil Kent MD Unavailable Roney Story DPM Unavailable [phone] Erica Farrell MARKET RESEARCH INTERVIEWER PROCUREMENT COST COORDINATOR Unavailable + Diana Desir [facility] Unavailable [phone] Jelena David OD Unavailable Galo Burrell MD Unavailable Unavailable Livan Sharif MD Unavailable + Livan Sharif MD Unavailable + Catherine Cm MD Unavailable + Valery Veronica PA-C Unavailable [phone] Catherine Cm MD Unavailable + Johnny Murillo MD Unavailable +1- Brea Quinn MARKET RESEARCH INTERVIEWER PROCUREMENT COST COORDINATOR Unavailable [phone] Brea Quinn APRN PROCUREMENT COST COORDINATOR Unavailable [phone] Jose Francisco Johnson MD Unavailable + Livan Sharif MD Unavailable Catherine Cm MD Unavailable + Sydnie Martinez RN Unavailable Unavailable Alfonso Renteria MD Unavailable [phone] Esha Grimm PA-C Primary Care Provider [phone] Cheng Todd PA-C Unavailable [phone] Radha Lomeli APRN PROCUREMENT COST COORDINATOR Unavailable Jelena David OD Unavailable Pao Joseph RN Unavailable Unavailable Esha GrimmC Unavailable [phone] Valery Veronica PA-C Unavailable Rey Tay MD Unavailable Rocky Zepeda DO Unavailable Philip Dumont MD Unavailable [phone] Encounter Details Date Type Department Care Team (Late st Contact Info) Description 05/16/2020 MyC Medical Advice [address] [address] Jerome Ferrell, RN Social History Tobacco Use Types Packs/Day Years Used Date Smoking Tobacco: Former Cigarettes 1 Q uit: 12/07/2019 Other Smokeless Tobacco: Never Alcohol Use Standard Drinks/Week Comments Not Currently 0 (1 standard drink = 0.6 oz pur e alcohol) PHQ-2 Answer Date Recorded PHQ-2 Score 2 05/19/2020 Sex and Gender Information Value Date Recorded Sex Assigned at Female 03/02/2021 5:45 PM CDT Gender Identity Female 03/02/2021 5:45 PM CDT Sexual Orientation Straight 02/28/2020 12 :51 AM CDT COVID-19 Exposure Response Date Recorded In the last month, have you been in contact with someone who was confirmed or suspected to have Coronavirus / COVID-19? No / Unsure 05/12/2020 9:03 AM LEGAL AIDE documented as of this encounter Plan of Treatment Upcoming Encounters Date Type Department Care Team (Late st Contact Info) Description 10/25/2023 11:30 AM CDT Virtual Visit [facility] [address] [place] [phone] [address], [address] [place] [address] 11/03/2023 8:00 AM CDT [facility] Visit [facility] [address] [place] [phone] Valery Veronica PA-C 9 [place] [address] 11/29/2023 8:00 AM CDT Office Visit [facility] [address] [place] [phone] Esha Grimm PA-C [address] [place] [address] 01/02/2024 8:00 AM CDT Office Visit [facility] Sleep [facility] [address] [place] [phone] Lauren Claudio PA-C [address] [place], [place] [phone] Kelli Perez MD [address] [place] [address]284 documented as of this encounter Visit Diagnoses Not on filedocumented in this encounter Additional Health Concerns Infection Onset Date Last Indicated Resolved Time Rule Out COVID-19 07/30/2020 07/30/2020 07/30/2020 7:11 PM LEGAL AIDE Rule Out COVID-19 08/30/2020 08/30/2020 08/30/2020 5:05 PM LEGAL AIDE Rule Out COVID-19 09/24/2020 09/24/2020 09/24/2020 9:24 AM CDT Rule Out COVID-19 11/05/2020 11/05/2020 11/06/2020 1:09 PM CDT Rule Out COVID-19 05/11/2021 05/11/2021 05/13/2021 10:18 AM CDT Rule Out COVID-19 07/13/2021 07/13/2021 07/14/2021 3:04 PM LEGAL AIDE Rule Out COVID-19 07/18/2021 07/18/2021 07/20/2021 1:56 PM LEGAL AIDE COVID-19 07/18/2021 07/18/2021 08/08/2021 11:3 9 PM LEGAL AIDE Rule Out COVID-19 12/18/2021 12/18/2021 12/19/2021 11:34 AM CDT Rule Out COVID-19 02/24/2022 02/24/2022 02/25/2022 1:08 PM CDT Rule Out COVID-19 04/26/2022 04/26/2022 04/26/2022 6:47 AM CDT Rule Out COVID-19 05/17/2022 05/17/2022 05/17/2022 10:20 PM LEGAL AIDE Rule Out COVID-19 06/09/2022 06/09/2022 06/09/2022 9:35 AM LEGAL AIDE COVID-19 06/09/2022 06/09/2022 06/30/2022 11:4 1 PM LEGAL AIDE Rule Out COVID-19 11/10/2022 11/10/2022 11/11/2022 12:17 PM CDT Rule Out COVID-19 03/07/2023 03/07/2023 03/07/2023 1:20 PM CDT Assessment Noted Time PHQ-9 Depression Total Score: 12 020 2:40 PM CDT documented as of this encounter Care Teams Bank Officer Relationship Specialty Start Date End Date Marija Edgar APRN PROCUREMENT COST COORDINATOR [address] [address] [address] PCP - General Nurse Practitioner 10/21/20 10/5/23 Esha Grimm PA-C [address] [place] [phone] PCP - General Family Medicine 05/04/23 Lita Oseguera Personal Advocate & Liaison (PAL) 02/28/20 03/27/23 Rakesh Cid PA-C 34614 [facility] [address] Assigned PCP 03/02/20 06/07/20 Chanelle Mccann APRN CNM [address] [place] [address] 200 [place] [address] Assigned OBGYN Provider 05/02/2005/09 Lesley Moody, CHW Community Health Worker 05/30/2005/12 Kyara De La Fuente, RN Specialty Locomotive Oiler Neurology 06/04/20 03/05/21 Marija Edgar APRN PROCUREMENT COST COORDINATOR 74807 [facility] TOM[facility]ia [facility] [place] [address] Assigned PCP 06/08/20 04/29/23 Mynor Broussard MD 6363 [facility] 500 [place] [address] Assigned Surgical Provider 06/01/20 11/28/21 Keisha Dotson MD 909 [place] [address] Assigned Neuroscience Provider 06/04/20 04/01/23 Mary Mejia Financial Resource Worker 08/07/20 08/21/20 Stacey Briones, [facility] Lead Locomotive Oiler Primary Care - CC 08/11/2012/30 Lesley Moody, [facility] Community Health Worker 08/11/2010/01 Jackie Mary Financial Resource Worker 09/02/20 10/06/20 Lita Oseguera Personal Advocate & Liaison (PAL) Family Medicine 09/10/20 09/21/20 Galo Burrell MD Assigned Heart and Vascular Provider 10/05/20 04/02/22 Cristina Wood Financial Resource Worker 10/07/20 10/14/20 Lesley Moody, [facility] Community Health Worker 10/23/2012/30 Meredith Bedoya Financial Resource Worker 10/23/20 11/23/20 Cristina Wood Financial Resource Worker 02/09/21 02/09/21 Diana Desir, [facility]3 [place], [place] [address] Pharmacist Pharmacist 04/17/21 Rain Galaviz PA-C [address] [place] [address] DR [facility], [place] [phone] Physician Tool Liaison Dermatology 04/28/21 Summer Lara MD [address] [place] [address] [phone] Assigned OBGYN Provider 05/10/2105/23 Summer Lara MD [address] [place] [address] [phone] Assigned OBGYN Provider 05/31/21 2 Summer Lara MD [address] [place], [place] 582484 Assigned OBGYN Provider 05/24/2105/30 Tavia Wyatt MD [address] [place] [address] Dermatology 07/14/21 Johnny Murillo MD [address] [facility] [address] [place] [address] Assigned Musculoskeletal Provider 08/30/21 03/17/22 Erica Farrell APRN PROCUREMENT COST COORDINATOR 6405 [facility] [address] [place], [place] 6[address] Nurse Practitioner Cardiovascular Disease 09/09/21 Teresita Bean, [facility] [address] [facility] [address] [place], [place] [phone] Pharmacist Pharmacist 09/24/21 09/29/21 Tavia Wyatt MD Assigned Surgical Provider 11/29/21 05/07/22 [facility] [address] [place] [address] Assigned MTM Pharmacist 01/02/22 Rich Barrett MD [address] [address] Physician Ophthalmology 01/21/22 Neil Kent MD [address] [place] [address] Dermatology 02/24/22 Roney Story DPM [address] [facility] [address] [place] [address] Assigned Musculoskeletal Provider 03/20/22 08/13/22 Erica Farrell APRN PROCUREMENT COST COORDINATOR 1700 [place] [address] Assigned Heart and Vascular Provider 04/03/22 04/16/22 Diana Desir, [facility] 3033 [place] [address] Assigned MTM Pharmacist 04/07/22 Jelena David OD 3[address] [facility] [place] [address] Assigned Surgical Provider 05/08/22 10/08/22 Galo Burrell MD Assigned Heart and Vascular Provider 04/17/22 06/11/22 Livan Sharif MD [address] [place] [address] Cardiovascular Disease 05/14/22 Livan Shraif MD [address] [place] [address] Assigned Heart and Vascular Provider 06/12/22 07/23/22 Catherine mC MD [address] [address] [place] 811375 Cardiovascular Disease 07/21/22 Valery Veronica, PAUcheC 909 [place], [place] 801[address] Physician Tool Liaison Dermatology 07/21/22 Catherine Cm MD [address] [facility]00 [place] [address] Assigned Heart and Vascular Provider 07/24/22 11/05/22 Johnny Murillo MD [address] [place] [address] Assigned Musculoskeletal Provider 08/14/22 10/08/22 Bera Quinn APRN PROCUREMENT COST COORDINATOR [address] [place] [address] Nurse Practitioner Dermatology 09/21/22 Brea Quinn APRN PROCUREMENT COST COORDINATOR [address] [place] [address] Assigned Surgical Provider 10/09/22 [place] [address] [address] Assigned Musculoskeletal Provider 10/09/22 Livan Sharif MD [address] Sylvia, [facility]00 [place], [place] [address]85 Assigned Heart and Vascular Provider 11/06/22 11/12/22 Catherine Cm MD [address] [place] [address] Assigned Heart and Vascular Provider 11/13/22 05/27/23 Sydnie Martinez, VJ Personal Advocate & Liaison (PAL) Family Medicine 03/28/23 07/31/23 Alfonso Renteria MD 5775 [facility] [address] 200 [place] [address] Assigned Neuroscience Provider 04/02/23 Cheng Todd PA-C [address] [place], [place] [phone] Assigned PCP 04/30/23 07/15/23 Radha Lomeli APRN PROCUREMENT COST COORDINATOR [address] [place] [address] Assigned Heart and Vascular Provider 05/28/23 Jelena David OD 3[address] [facility] [address] [place] [phone] Ophthalmology 06/15/23 Pao Joseph RN Personal Advocate & Liaison (PAL) Nurse 08/01/23 Esha Grimm PA-C [address] [place] [phone] Assigned PCP 07/16/23 Valery Veronica PA-C [address] [place] [address] 256705 Physician Tool Liaison Dermatology 09/19/23 Rey Tay MD 909 [place], [place] 074145 Gastroenterology 09/20/23 Rocky Zepeda DO [address] [place] [address] [phone] Physician Gastroenterology 09/20/23 Philip Dumont MD [address] [place] [address] 150345 Physician Ophthalmology 09/22/23 documented as of this encounter
--- OUTSIDE RECORDS SUMMARY | 2023-10-15 22:00 | XMS_ITS | Encounter Summary ---
Author Name Unknown Organization [facility] Address [address] [place] [address] Care Team Providers Care Trauma Nurse Name Role Phone Lita Oseguera Unavailable Unavailable Marija Edgar APRN DELIVERY AND INSTALLATION SUBCONTRACTOR Primary Care Provider Chanelle Gut[facility]rez[facility]t [facility] [place] TEA ROOM MANAGER CNM Unavailab le Kyara De La Fuente RN Unavailable [phone] Marija Edgar APRN DELIVERY AND INSTALLATION SUBCONTRACTOR Unavailable Unavail able Mynor Broussard MD Unavailable Keisha Dotson MD Unavailable [phone] Mary Mejia Unavailable Unavailable Stacey Briones SINKER WINDER Unavailable Lesley Moody CHW Unavailable [phone] Mary Mejia Unavailable Unavailable Lita Oseguera Unavailable Unavailable Galo Burrell MD Unavailable Unavailable Cristina Wood Unavailable Lesley Moody CHW Unavailable Meredith Bedoya Unavailable Unavailable Cristina Wood Unavailable Diana Desir [facility] Unavailable Rain Galaviz PA-C Unavailable Summer Lara MD Unavailable Summer Lara MD Unavailable [phone] Summer Lara MD Unavailable + [phone] Tavia Wyatt MD Unavailable Unavailable Johnny Murillo MD Unavailable +1- Erica Farrell TEA ROOM MANAGER DELIVERY AND INSTALLATION SUBCONTRACTOR Unavailable + VikasTeresita RPH Unavailable Tavia Wyatt MD Unavailable Unavailable Diana Desir [facility] Unavailable [phone] Rich Barrett MD Unavailable [phone] Neil Kent MD Unavailable Roney Story DPM Unavailable [phone] Erica Farrell TEA ROOM MANAGER DELIVERY AND INSTALLATION SUBCONTRACTOR Unavailable + Diana Desir [facility] Unavailable [phone] Jelena David OD Unavailable [phone] Galo Burrell MD Unavailable Unavailable Livan Sharif MD Unavailable + Livan Sharif MD Unavailable + Catherine Cm MD Unavailable + Valery Veronica PA-C Unavailable + [phone] Catherine Cm MD Unavailable + Johnny Murillo MD Unavailable +1- Brea Quinn APRN DELIVERY AND INSTALLATION SUBCONTRACTOR Unavailable [phone] Brea Quinn TEA ROOM MANAGER DELIVERY AND INSTALLATION SUBCONTRACTOR Unavailable [phone] Jose Francisco Johnson MD Unavailable Livan Sharif MD Unavailable + Catherine Cm MD Unavailable + Sydnie Martinez RN Unavailable Unavailable Alfonso Renteria MD Unavailable [phone] Esha GrimmC Primary Care Provider [phone] Cheng Todd PAUcheC Unavailable Radha Lomeli APRN DELIVERY AND INSTALLATION SUBCONTRACTOR Unavailable Jelena David OD Unavailable Pao Joseph RN Unavailable Unavailable Esha Grimm PA-C Unavailable [phone] Valery VeronicaC Unavailable [phone] Rey Tay MD Unavailable Rocky Zepeda DO Unavailable Philip Dumont MD Unavailable Encounter Details Date Type Department Care Team (Late st Contact Info) Description 07/10/2020 MyC Medical Advice [facility] [place] [address] [place] [address] Mynor Broussard MD [address] [place] [address] Social History Tobacco Use Types [...] COVID-19? No / Unsure 06/24/2020 3:01 PM ASSISTANT PASTRY CHEF documented as of this encounter Plan of Treatment Upcoming Encounters Date Type Department Care Team (Late st Contact Info) Description 10/25/2023 11:30 AM CDT Virtual Visit [facility] Gastro[facility]ology [facility] [address]th [place] [phone] [address], [address]09 [place] [address] 11/03/2023 8:00 AM CDT Office Visit [facility] 830 [place] [phone] Valery Veronica PA-C 9 [place] [address] 11/29/2023 8:00 AM CDT Office Visit [facility] [address] [place] [phone] Esha Grimm PA-C [address] [place] [address] 01/02/2024 8:00 AM CDT Office Visit [facility] [place] [address] [place] [phone] Lauren Claudio PA-C [address] [place], [place] [phone] Kelli Perez MD [address] 397[address] documented as of this encounter Visit Diagnoses Not on filedocumented in this encounter Additional Health Concerns Infection Onset Date Last Indicated Resolved Time Rule Out COVID-19 07/30/2020 07/30/2020 07/30/2020 7:11 PM ASSISTANT PASTRY CHEF Rule Out COVID-19 08/30/2020 08/30/2020 08/30/2020 5:05 PM ASSISTANT PASTRY CHEF Rule Out COVID-19 09/24/2020 09/24/2020 09/24/2020 9:24 AM CDT Rule Out COVID-19 11/05/2020 11/05/2020 11/06/2020 1:09 PM CDT Rule Out COVID-19 05/11/2021 05/11/2021 05/13/2021 10:18 AM CDT Rule Out COVID-19 07/13/2021 07/13/2021 07/14/2021 3:04 PM ASSISTANT PASTRY CHEF Rule Out COVID-19 07/18/2021 07/18/2021 07/20/2021 1:56 PM ASSISTANT PASTRY CHEF COVID-19 07/18/2021 07/18/2021 08/08/2021 11:3 9 PM ASSISTANT PASTRY CHEF Rule Out COVID-19 12/18/2021 12/18/2021 12/19/2021 11:34 AM CDT Rule Out COVID-19 02/24/2022 02/24/2022 02/25/2022 1:08 PM CDT Rule Out COVID-19 04/26/2022 04/26/2022 04/26/2022 6:47 AM CDT Rule Out COVID-19 05/17/2022 05/17/2022 05/17/2022 10:20 PM ASSISTANT PASTRY CHEF Rule Out COVID-19 06/09/2022 06/09/2022 06/09/2022 9:35 AM ASSISTANT PASTRY CHEF COVID-19 06/09/2022 06/09/2022 06/30/2022 11:4 1 PM ASSISTANT PASTRY CHEF Rule Out COVID-19 11/10/2022 11/10/2022 11/11/2022 12:17 PM CDT Rule Out COVID-19 03/07/2023 03/07/2023 03/07/2023 1:20 PM CDT Assessment Noted Time PHQ-9 Depression Total Score: 9 06/25/20 20 7:04 AM ASSISTANT PASTRY CHEF documented as of this encounter Care Teams Trauma Nurse Relationship Specialty Start Date End Date Marija Edgar APRN DELIVERY AND INSTALLATION SUBCONTRACTOR PCP - General Nurse Practitioner 04/30/20 04/14/23 Esha Grimm PA-C [address] [place] [phone] PCP - General Family Medicine 05/04/23 Lita Oseguera Personal Advocate & Liaison (PAL) 02/28/20 03/27/23 Chanelle Mccann APRN CNM [address] [facility] 200 [place] [address] Assigned OBGYN Provider 05/02/2005/09 Kyara De La Fuente, VJ Specialty Clerk General Office Neurology 06/04/20 03/05/21 Marija Edgar APRN DELIVERY AND INSTALLATION SUBCONTRACTOR Assigned PCP 06/08/20 04/29/23 Mynor Broussard MD 6363 [facility] [address] 500 [place] [address] Assigned Surgical Provider 06/01/20 11/28/21 Keisha Dotson MD 909 [place] [address] Assigned Neuroscience Provider 06/04/20 04/01/23 Mary Mejia Financial Resource Worker 08/07/20 08/21/20 Stacey Briones, SINKER WINDER Lead Clerk General Office Primary Care - CC 08/11/2012/30 Lesley Moody, W Community Health Worker 08/11/2010/01 Mary Mejia Financial Resource Worker 09/02/20 10/06/20 Lita Oseguera Personal Advocate & Liaison (PAL) Family Medicine 09/10/20 09/21/20 Galo Burrell MD Assigned Heart and Vascular Provider 10/05/20 04/02/22 Cristina Wood Financial Resource Worker 10/07/20 10/14/20 Lesley Moody, [facility] Community Health Worker 10/23/2012/30 Meredith Bedoya Financial Resource Worker 10/23/20 11/23/20 Cristina Wood Financial Resource Worker 02/09/21 02/09/21 Diana Desir, [facility] 3033 [place] [address] Pharmacist Pharmacist 04/17/21 Rain Galaviz PA-C [address] [place] [address] [place] [address] Physician Exchange Floor Manager Dermatology 04/28/21 Summer Lara MD [address] [place] [address] [phone] Assigned OBGYN Provider 05/10/2105/23 Summer Lara MD [address] [place] [address] 363004 Assigned OBGYN Provider 05/31/21 2 Summer Lara MD [address] [place] [address] 111394 Assigned OBGYN Provider 05/24/2105/30 Tavia Wyatt MD [address] [place] [address] Dermatology 07/14/21 Johnny Murillo MD [address] [place] [address] Assigned Musculoskeletal Provider 08/30/21 03/17/22 Erica Farrell APRN DELIVERY AND INSTALLATION SUBCONTRACTOR 6405 [facility] [address] [place] [address] Nurse Practitioner Cardiovascular Disease 09/09/21 Teresita Bean, [facility] [address] [place] [phone] Pharmacist Pharmacist 09/24/21 09/29/21 Tavia Wyatt MD Assigned Surgical Provider 11/29/21 05/07/22 [facility] 3033 [place] [address] Assigned MTM Pharmacist 01/02/22 Rich Barrett MD 516 [facility] 9A [place] [address] Physician Ophthalmology 01/21/22 Neil Kent MD 500 [place] [address] Dermatology 02/24/22 Roney Story DPM [address] [facility] 300 [place], [place] 927047 Assigned Musculoskeletal Provider 03/20/22 08/13/22 Erica Farrell APRN DELIVERY AND INSTALLATION SUBCONTRACTOR 1700 [place] [address] Assigned Heart and Vascular Provider 04/03/22 04/16/22 Diana Desir, [facility] [address] [place] [address] Assigned MTM Pharmacist 04/07/22 Jelena David OD [address] [facility] [place] [address] Assigned Surgical Provider 05/08/22 10/08/22 Galo Burrell MD Assigned Heart and Vascular Provider 04/17/22 06/11/22 Livan Sharif MD [address] [place] [address] Cardiovascular Disease 05/14/22 Livan Sharif MD [address], [address] [place] [address] Assigned Heart and Vascular Provider 06/12/22 07/23/22 Catherine Cm MD [address] [place] [address] Cardiovascular Disease 07/21/22 Valery Veronica, PAcUheC 909 [place] [address] Physician Exchange Floor Manager Dermatology 07/21/22 Catherine Cm MD [address] [place] [address] Assigned Heart and Vascular Provider 07/24/22 11/05/22 Johnny Murillo MD [address] 769524 Assigned Musculoskeletal Provider 08/14/22 10/08/22 Brea Quinn APRN DELIVERY AND INSTALLATION SUBCONTRACTOR [address] [place] [address]955 Nurse Practitioner Dermatology 09/21/22 Brea Quinn APRN DELIVERY AND INSTALLATION SUBCONTRACTOR [facility]1 [facility] [place] 164012 Assigned Surgical Provider 10/09/22 [place] [address] 678197 Assigned Musculoskeletal Provider 10/09/22 Livan Sharif MD [address], [facility] [address] [place] [address] Assigned Heart and Vascular Provider 11/06/22 11/12/22 Catherine Cm MD [address] [facility] [address] [place] [address] Assigned Heart and Vascular Provider 11/13/22 05/27/23 JuanSydnie malik RN Personal Advocate & Liaison (PAL) Family Medicine 03/28/23 07/31/23 Alfonso Renteria MD [address] [facility] 200 [place], [place] 6[address]016 Assigned Neuroscience Provider 04/02/23 Cheng Todd PA-C [address] [place] [address] Assigned PCP 04/30/23 07/15/23 Radha Lomeli APRN DELIVERY AND INSTALLATION SUBCONTRACTOR [address] [place] [address] Assigned Heart and Vascular Provider 05/28/23 Jelena David OD [address] [facility] [place] [address] Ophthalmology 06/15/23 Pao Joseph, VJ Personal Advocate & Liaison (PAL) Nurse 08/01/23 Esha Grimm PA-C [address] [place] [address]684283 Assigned PCP 07/16/23 Valery Veronica PA-C [address] [place] [address] 836965 Physician Exchange Floor Manager Dermatology 09/19/23 Rey Tay MD [address] [place] [address] 881195 Gastroenterology 09/20/23 Rocky Zepeda DO [address] [place] [address] 290635 Physician Gastroenterology 09/20/23 Philip Dumont MD [address] [place] [address] 397985 Physician Ophthalmology 09/22/23 documented as of this encounter
--- OUTSIDE RECORDS SUMMARY | 2023-10-15 22:00 | XMS_ITS | Encounter Summary ---
Author Name Unknown Organization [facility] Address [address] [place] [address] Care Team Providers Care Lehr Operator Name Role Phone Lita Oseguera Unavailable Unavailable Rakesh Cid PA-C Unavailable [phone] Marija Edgar APRN AIRPLANE CABIN ATTENDANT Primary Care Provider Chanelle Gutierrez MATERIAL DISPOSITION INSPECTOR CNM Unavailab le Lesley Moody CHW Unavailable [phone] Kyara De La Fuente RN Unavailable [phone] Marija Edgar APRN AIRPLANE CABIN ATTENDANT Unavailable Unavail able Mynor Broussard MD Unavailable [phone] Keisha Dotson MD Unavailable [phone] Mary Mejia Unavailable Unavailable Stacey Briones GLASS PULVERIZER EQUIPMENT OPERATOR Unavailable [phone] Lesley Moody CHW Unavailable Mary Mejia Unavailable Unavailable Lita Oseguera Unavailable Unavailable Galo Burrell MD Unavailable Unavailable Cristina Wood Unavailable Lesley Moody CHW Unavailable Meredith Bedoya Unavailable Unavailable Cristina Wood Unavailable Diana Desir [facility] Unavailable [phone] Anastacia Rain Paredes PA-C Unavailable [phone] Summer Lara MD Unavailable [phone] Summer Lara MD Unavailable [phone] Summer Lara MD Unavailable [phone] Tavia Wyatt MD Unavailable Unavailable Johnny Murillo MD Unavailable +1- Erica Farrell MATERIAL DISPOSITION INSPECTOR AIRPLANE CABIN ATTENDANT Unavailable + VikasTeresita [facility] Unavailable Tavia Wyatt MD Unavailable Unavailable Desir Diana [place] [facility] Unavailable [phone] Rich Barrett MD Unavailable [phone] Neil Kent MD Unavailable Roney Story DPM Unavailable [phone] Erica Farrell MATERIAL DISPOSITION INSPECTOR AIRPLANE CABIN ATTENDANT Unavailable + Diana Desir [facility] Unavailable [phone] Jelena David OD Unavailable Galo Burrell MD Unavailable Unavailable Livan Sharif MD Unavailable + Livan Sharif MD Unavailable + Catherine Cm MD Unavailable + Valery Veronica PA-C Unavailable [phone] Catherine Cm MD Unavailable + Johnny Murillo MD Unavailable +1- Brea Quinn MATERIAL DISPOSITION INSPECTOR AIRPLANE CABIN ATTENDANT Unavailable [phone] Brea Quinn APRN AIRPLANE CABIN ATTENDANT Unavailable [phone] Jose Francisco Johnson MD Unavailable + Livan Sharif MD Unavailable Catherine Cm MD Unavailable + Sydnie Martinez RN Unavailable Unavailable Alfonso Renteria MD Unavailable [phone] Esha Grimm PA-C Primary Care Provider [phone] Cheng Todd PA-C Unavailable [phone] Radha Lomeli APRN AIRPLANE CABIN ATTENDANT Unavailable Jelena David OD Unavailable Pao Joseph RN Unavailable Unavailable Esha GrimmC Unavailable Valery Veronica PA-C Unavailable Rey Tay MD Unavailable Rocky Zepeda DO Unavailable Philip Dumont MD Unavailable [phone] Reason for Visit * Reason Onset Date Comments Referral 05/19/2020 Encounter Details Date Type Department Care Team (Late st Contact Info) Description 05/19/2020 [facility] [address], [address] [place] [address] Unknown Referral Social History Tobacco Use Types Packs/Day Years [...] COVID-19? No / Unsure 05/12/2020 9:03 AM MECHANIC GENERAL OPERATIONAL TEST documented as of this encounter Miscellaneous Notes * Telephone Encounter - Jolene Mcpherson - 05/19/2020 2:02 PM CST M [facility] Call [facility] Phone Message May a detailed message be left on voicemail: yes Reason for Call: Appointment Intake Referring Provider Name: Marija Edgar APRN CNP in FAMILY PRACTICE Diagnosis and/or Symptoms: History of Seizures Being referred to [facility]. Please review. Thanks. Action Taken: Other: [facility] Travel Screening: Not Applicable ANIC GENERAL OPERATIONAL TEST documented in this encounter Plan of Treatment Upcoming Encounters Date Type Department Care Team (Late st Contact Info) Description 10/25/2023 11:30 AM CDT Virtual Visit [facility] [address] [place] [address] N[address] [place], RD [address] [place] [address] 11/03/2023 8:00 AM CDT Office Visit [facility] [address] [place] [phone] Valery Veronica PA-C [address] [place] [address] 11/29/2023 8:00 AM CDT Office Visit [facility] [id number] [place] [phone] Esha Grimm PA-C [address] [place] [address] 01/02/2024 8:00 AM CDT Office Visit [facility] [place] [address] [place] [phone] Lauren Claudio PA-C [phone] [place] [address] Kelli Perez MD [address] [facility] [address] [address] documented as of this encounter Visit Diagnoses Not on filedocumented in this encounter Additional Health Concerns Infection Onset Date Last Indicated Resolved Time Rule Out COVID-19 07/30/2020 07/30/2020 07/30/2020 7:11 PM MECHANIC GENERAL OPERATIONAL TEST Rule Out COVID-19 08/30/2020 08/30/2020 08/30/2020 5:05 PM MECHANIC GENERAL OPERATIONAL TEST Rule Out COVID-19 09/24/2020 09/24/2020 09/24/2020 9:24 AM CDT Rule Out COVID-19 11/05/2020 11/05/2020 11/06/2020 1:09 PM CDT Rule Out COVID-19 05/11/2021 05/11/2021 05/13/2021 10:18 AM CDT Rule Out COVID-19 07/13/2021 07/13/2021 07/14/2021 3:04 PM MECHANIC GENERAL OPERATIONAL TEST Rule Out COVID-19 07/18/2021 07/18/2021 07/20/2021 1:56 PM MECHANIC GENERAL OPERATIONAL TEST COVID-19 07/18/2021 07/18/2021 08/08/2021 11:3 9 PM MECHANIC GENERAL OPERATIONAL TEST Rule Out COVID-19 12/18/2021 12/18/2021 12/19/2021 11:34 AM CDT Rule Out COVID-19 02/24/2022 02/24/2022 02/25/2022 1:08 PM CDT Rule Out COVID-19 04/26/2022 04/26/2022 04/26/2022 6:47 AM CDT Rule Out COVID-19 05/17/2022 05/17/2022 05/17/2022 10:20 PM MECHANIC GENERAL OPERATIONAL TEST Rule Out COVID-19 06/09/2022 06/09/2022 06/09/2022 9:35 AM MECHANIC GENERAL OPERATIONAL TEST COVID-19 06/09/2022 06/09/2022 06/30/2022 11:4 1 PM MECHANIC GENERAL OPERATIONAL TEST Rule Out COVID-19 11/10/2022 11/10/2022 11/11/2022 12:17 PM CDT Rule Out COVID-19 03/07/2023 03/07/2023 03/07/2023 1:20 PM CDT Assessment Noted Time PHQ-9 Depression Total Score: 6 08/28/19 21 7:05 AM MECHANIC GENERAL OPERATIONAL TEST documented as of this encounter Care Teams Lehr Operator Relationship Specialty Start Date End Date Marija Edgar APRN AIRPLANE CABIN ATTENDANT [address] [place] [address] PCP - General Nurse Practitioner 04/30/20 04/14/23 Esha Grimm PA-C [address] [place] [phone] PCP - General Family Medicine 05/04/23 Lita Oseguera Personal Advocate & Liaison (PAL) 02/28/20 03/27/23 Rakesh Cid PA-C [address] [place] [address] Assigned PCP 03/02/20 06/07/20 Chanelle Mccann APRN CNM [address] [address] [facility], [address] [address] Assigned OBGYN Provider 05/02/2005/09 Lesley Moody CHW Community Health Worker 05/30/2005/12 Kyara De La Fuente, RN Specialty Supervisor [employer] Neurology 06/04/20 03/05/21 Marija Edgar APRN AIRPLANE CABIN ATTENDANT [address] [place] [address] Assigned PCP 06/08/20 04/29/23 Mynor Broussard MD [address] [facility] [address] [place], [place] [phone] Assigned Surgical Provider 06/01/20 11/28/21 Keisha Dotson MD [address] [place], [place] [phone] Assigned Neuroscience Provider 06/04/20 04/01/23 Mary Mejia Financial Resource Worker 08/07/20 08/21/20 Stacey Briones, [facility] Lead Supervisor [employer] Primary Care - CC 08/11/2012/30 Lesley Moody, [facility] Community Health Worker 08/11/2010/01 Mary Mejia Financial Resource Worker 09/02/20 10/06/20 Lita Oseguera Personal Advocate & Liaison (PAL) Family Medicine 09/10/20 09/21/20 Galo Burrell MD Assigned Heart and Vascular Provider 10/05/20 04/02/22 Cristina Wood Financial Resource Worker 10/07/20 10/14/20 Lesley Moody, [facility] Community Health Worker 10/23/2012/30 Meredith Bedoya Financial Resource Worker 10/23/20 11/23/20 Cristina Wood Financial Resource Worker 02/09/21 02/09/21 Diana Desir, [facility] [address] [place] [address] Pharmacist Pharmacist 04/17/21 Rain Galaviz PA-C [address] [place] [address] [place] [address] Physician Civil Lawyer Dermatology 04/28/21 Summer Lara MD [address] [facility] [place] [address] Assigned OBGYN Provider 05/10/2105/23 Summer Lara MD [address] [facility] [place] [address] Assigned OBGYN Provider 05/31/21 Smumer Lara MD [address] [facility] [place] [address] Assigned OBGYN Provider 05/24/2105/30 Tavia Wyatt MD [address] [place] [address] Dermatology 07/14/21 Johnny Murillo MD [facility] [address] [place] [address] Assigned Musculoskeletal Provider 08/30/21 03/17/22 Erica Farrell APRN AIRPLANE CABIN ATTENDANT [address] [facility] [address] [place] [address] Nurse Practitioner Cardiovascular Disease 09/09/21 Teresita Bean, [facility] [address] [place] [address] Pharmacist Pharmacist 09/24/21 09/29/21 Tavia Wyatt MD Assigned Surgical Provider 11/29/21 05/07/22 Diana Desir, [facility] [address] [place] [address] Assigned MTM Pharmacist 01/02/22 Rich Barrett MD [address] [facility] [address] [place], [place] [address] Physician Ophthalmology 01/21/22 Neil Kent MD 500 [place], [place] [phone] Dermatology 02/24/22 Roney Story DPM [address] [employer] [facility] [address] [place], [place] [address] Assigned Musculoskeletal Provider 03/20/22 08/13/22 Erica Farrell APRN AIRPLANE CABIN ATTENDANT [address] [place] [address] Assigned Heart and Vascular Provider 04/03/22 04/16/22 Diana Desir, [facility] [address] [place] [address] Assigned MTM Pharmacist 04/07/22 Jelena David OD [address] [facility] [place] [address] Assigned Surgical Provider 05/08/22 10/08/22 Galo Burrell MD Assigned Heart and Vascular Provider 04/17/22 06/11/22 Livan Sharif MD [address] [facility] [address] [place] [address] Cardiovascular Disease 05/14/22 Livan Sharif MD [address] [facility] [address] [place] [address] Assigned Heart and Vascular Provider 06/12/22 07/23/22 Catherine Cm MD [address] [facility] [place] [address] Cardiovascular Disease 07/21/22 Valery Veronica, PA-C [address] [place] [address] Physician Civil Lawyer Dermatology 07/21/22 Catherine Cm MD [address] [place] [phone] [place] [address] Assigned Heart and Vascular Provider 07/24/22 11/05/22 Johnny Murillo MD [address] [place] [address] Assigned Musculoskeletal Provider 08/14/22 10/08/22 Brea Quinn APRN AIRPLANE CABIN ATTENDANT [address] [place] [address] Nurse Practitioner Dermatology 09/21/22 Brea Quinn APRN AIRPLANE CABIN ATTENDANT [address] [place] [address] [place] [address] Assigned Surgical Provider 10/09/22 [place] [address] [place] [address] Assigned Musculoskeletal Provider 10/09/22 Livan Sharif MD [address], [facility] [address] [place] [address] Assigned Heart and Vascular Provider 11/06/22 11/12/22 Catherine Cm MD [address] [facility] [address] [place] [address] Assigned Heart and Vascular Provider 11/13/22 05/27/23 Sydnie Martinez RN Personal Advocate & Liaison (PAL) Family Medicine 03/28/23 07/31/23 Alfonso Renteria MD [address] [facility] 200 [place] [address] Assigned Neuroscience Provider 04/02/23 Cheng Todd PA-C [address] [place], [place] [phone] Assigned PCP 04/30/23 07/15/23 Radha Lomeli APRN AIRPLANE CABIN ATTENDANT [address] [place] [address] Assigned Heart and Vascular Provider 05/28/23 Jelena David OD [address] [facility] [place] [address] MD Ophthalmology 06/15/23 Pao Joseph RN Personal Advocate & Liaison (PAL) Nurse 08/01/23 Esha Grimm PAUcheC [address] [place] [address] Assigned PCP 07/16/23 Valery Veronica PA-C [address] [place], [place] [address] Physician Civil Lawyer Dermatology 09/19/23 Rey Tay MD [address] [place] [phone] Gastroenterology 09/20/23 Rocky Zepeda DO [address] [place] [address] 477685 Physician Gastroenterology 09/20/23 Philip Dumont MD [address] [place] [address] Physician Ophthalmology 09/22/23 documented as of this encounter
--- OUTSIDE RECORDS SUMMARY | 2023-10-15 22:00 | XMS_ITS | Encounter Summary ---
Author Name Unknown Organization [facility] Address [address] [place] [address] Care Team Providers Care Scraper Meat Name Role Phone Rakesh Cid PA-C Unavailable + Rakesh Cid PA-C Primary Care Provider Lita Oseguera Unavailable Unavailable Rakesh Cid PA-C Unavailable + Isaura Lamar RN Unavailable Unavailable Lita Oseguera Unavailable Unavailable Marija Edgar APRN WASHER ENGINEER Primary Care Provider Chanelle Gutierrez APRN CNM Unavailab le Lesley Moody CHW Unavailable [phone] Kyara De La Fuente RN Unavailable [phone] Marija Edgar APRN WASHER ENGINEER Unavailable Unavail able Mynor Broussard MD Unavailable [phone] Keisha Dotson MD Unavailable [phone] Mary Mejia Unavailable Unavailable Stacey Briones BEATER AND PULPER FEEDER Unavailable [phone] Lesley Moody CHW Unavailable [phone] Mary Mejia Unavailable Unavailable Lita Oseguera Unavailable Unavailable Galo Burrell MD Unavailable Unavailable Cristina Wood Unavailable Lesley Moody [facility] Unavailable Meredith Bedoya Unavailable Unavailable Tere Woodie Unavailable Diana Desir [facility] Unavailable [phone] Rain Galaviz PA-C Unavailable [phone] Summer Lara MD Unavailable +[phone] Summer Lara MD Unavailable + [phone] Summer Lara MD Unavailable +[phone] Tavia Wyatt MD Unavailable Unavailable Johnny Murillo MD Unavailable +[phone] Erica Farrell APRN WASHER ENGINEER Unavailable + Teresita Bean [facility] Unavailable + [phone] Tavia Wyatt MD Unavailable Unavailable Diana Desir [facility] Unavailable + [phone] Rich Barrett MD Unavailable [phone] Neil Kent MD Unavailable Roney Story DPM Unavailable [phone] Erica Farrell VP ANALYTICS WASHER ENGINEER Unavailable + Diana Desir [facility] Unavailable [phone] Jelena David OD Unavailable [phone] Galo Burrell MD Unavailable Unavailable Livan Sharif MD Unavailable + Livan Sharif MD Unavailable + Catherine Cm MD Unavailable + Valery Veronica PA-C Unavailable [phone] Catherine Cm MD Unavailable + Johnny Murillo MD Unavailable [phone] Brea Quinn VP ANALYT[employer] WASHER ENGINEER Unavailable Brea Quinn [employer] WASHER ENGINEER Unavailable Jose Francisco Johnson MD Unavailable Livan Sharif MD Unavailable Catherine Cm MD Unavailable + Sydnie Martinez RN Unavailable Unavailable Alfonso Renteria MD Unavailable Esha Grimm PA-C Primary Care Provider Cheng Todd PA-C Unavailable [phone] Armani Radha Sia VP ANALYTICS WASHER ENGINEER Unavailable [phone] Frankie Jelena Templetone OD Unavailable Pao Joseph RN Unavailable Unavailable Esha Grimm PA-C Unavailable [phone] Valery Veronica PA-C Unavailable [phone] Rey Tay MD Unavailable Rocky Zepeda DO Unavailable Philip Dumont MD Unavailable [phone] Encounter Details Date Type Department Care Team (Late st Contact Info) Description 02/27/[address], [address] [place] [address] Rakesh Cid PA-C [address] [place] [address] Social History Tobacco Use Types Packs/Day Years Used Date Smoking Tobacco: Former Cigarettes 1 Q uit: 12/07/2019 Other Smokeless Tobacco: Never Comments:Vaping Alcohol Use Standard Drinks/Week Comments Not Currently 0 (1 standard drink = 0.6 oz pur e alcohol) PHQ-2 Answer Date Recorded PHQ-2 Score 1 02/28/2020 Sex and Gender Information Value Date Recorded Sex Assigned at Female 03/02/2021 5:45 PM CDT Gender Identity Female 03/02/2021 5:45 PM CDT Sexual Orientation Straight 02/28/2020 12 :51 AM CDT COVID-19 Exposure Response Date Recorded In the last month, have you been in contact with someone who was confirmed or suspected to have Coronavirus / COVID-19? No / Unsure 02/22/2020 11:41 AM CDT documented as of this encounter Miscellaneous Notes * Telephone Encounter - Violet Jeffrey - 02/27/2020 [...] message?: Yes at Home number on file [phone] (home) Violet Jeffrey Patient School Teacher documented in this encounter Plan of Treatment Upcoming Encounters Date Type Department Care Team (Late st Contact Info) Description 10/25/2023 11:30 AM CDT Virtual Visit [facility] [address] [place] [phone] [address], RD [address] [place] [address] 11/03/2023 8:00 AM CDT Office Visit [address] [address] Valery Veronica PA-C [address] [place] [address] 11/29/2023 8:00 AM CDT Office Visit [address] [phone] Esha Grimm PA-C [address] [place] [phone] 01/02/2024 8:00 AM CDT Office Visit [facility] [address] [place] [phone] Lauren Claudio PA-C [address] [place], [place] [phone] Kelli Perez MD [address] [address] documented as of this encounter Visit Diagnoses Not on filedocumented in this encounter Additional Health Concerns Infection Onset Date Last Indicated Resolved Time Rule Out COVID-19 07/30/2020 07/30/2020 07/30/2020 7:11 PM DINING ROOM ATTENDANT Rule Out COVID-19 08/30/2020 08/30/2020 08/30/2020 5:05 PM DINING ROOM ATTENDANT Rule Out COVID-19 09/24/2020 09/24/2020 09/24/2020 9:24 AM CDT Rule Out COVID-19 11/05/2020 11/05/2020 11/06/2020 1:09 PM CDT Rule Out COVID-19 05/11/2021 05/11/2021 05/13/2021 10:18 AM CDT Rule Out COVID-19 07/13/2021 07/13/2021 07/14/2021 3:04 PM DINING ROOM ATTENDANT Rule Out COVID-19 07/18/2021 07/18/2021 07/20/2021 1:56 PM DINING ROOM ATTENDANT COVID-19 07/18/2021 07/18/2021 08/08/2021 11:3 9 PM DINING ROOM ATTENDANT Rule Out COVID-19 12/18/2021 12/18/2021 12/19/2021 11:34 AM CDT Rule Out COVID-19 02/24/2022 02/24/2022 02/25/2022 1:08 PM CDT Rule Out COVID-19 04/26/2022 04/26/2022 04/26/2022 6:47 AM CDT Rule Out COVID-19 05/17/2022 05/17/2022 05/17/2022 10:20 PM DINING ROOM ATTENDANT Rule Out COVID-19 06/09/2022 06/09/2022 06/09/2022 9:35 AM DINING ROOM ATTENDANT COVID-19 06/09/2022 06/09/2022 06/30/2022 11:4 1 PM DINING ROOM ATTENDANT Rule Out COVID-19 11/10/2022 11/10/2022 11/11/2022 12:17 PM CDT Rule Out COVID-19 03/07/2023 03/07/2023 03/07/2023 1:20 PM CDT Assessment Noted Time PHQ-9 Depression Total Score: 11 020 1:14 PM CDT documented as of this encounter Care Teams Scraper Meat Relationship Specialty Start Date End Date Rakesh Cid PA-C [address] [place] [address] PCP - General Physician Tank Car Loader - Medical 05/14/19 04/29/20 Marija Edgar APRN CNP PCP - General Nurse Practitioner 04/30/20 04/14/23 Esha Grimm PA-C [address] [place] [phone] PCP - General Family Medicine 05/04/23 Rakesh Cid PA-C [address] [place] [address] Assigned PCP 05/06/19 03/01/20 Lita Oseguera Personal Advocate & Liaison (PAL) 02/28/20 03/27/23 Rakesh Cid [facility]-C [address] [facility] [place] [address] Assigned PCP 03/02/20 06/07/20 Isaura Lamar, RN Personal Advocate & Liaison (PAL) Family Practice 04/03/20 04/06/20 Lita Oseguera Personal Advocate & Liaison (PAL) 04/07/20 04/29/20 [place] [address] [facility] [address] [place] [address] Assigned OBGYN Provider 05/02/2005/09 Lesley Moody, W Community Health Worker 05/30/2005/12 Kyara De La Fuente, VJ Specialty Tube Building Machine Operator Neurology 06/04/20 03/05/21 Marija Edgar, ARLENE WASHER ENGINEER Assigned PCP 06/08/20 04/29/23 Mynor Broussard MD [address] [facility] [address] [place] [address] Assigned Surgical Provider 06/01/20 11/28/21 Keisha Dotson MD [address] [place], [place] [address]115 Assigned Neuroscience Provider 06/04/20 04/01/23 Mary Mejia Financial Resource Worker 08/07/20 08/21/20 Stacey Briones, [facility] Lead Tube Building Machine Operator Primary Care - CC 08/11/2012/30 Lesley Moody, W Community Health Worker 08/11/2010/01 Mary Mejia Financial Resource Worker 09/02/20 10/06/20 Lita Oseguera Personal Advocate & Liaison (PAL) Family Medicine 09/10/20 09/21/20 Galo Burrell MD Assigned Heart and Vascular Provider 10/05/20 04/02/22 Cristina Wood Financial Resource Worker 10/07/20 10/14/20 Lesley Moody, [facility] Community Health Worker 10/23/2012/30 Meredith Bedoya Financial Resource Worker 10/23/20 11/23/20 Cristina Wood Financial Resource Worker 02/09/21 02/09/21 Diana Desir, [facility] [address] [place], [place] [address] Pharmacist Pharmacist 04/17/21 Rain Galaviz PA-C [address] [place] [address] [address] [place], [place] [phone] Physician Tank Car Loader Dermatology 04/28/21 Summer Lara MD [address] [place] [address] 322254 Assigned OBGYN Provider 05/10/2105/23 Summer Lara MD [address] [place] [address] 796884 Assigned OBGYN Provider 05/31/21 2 Summer Lara MD [address] [place] [address] Assigned OBGYN Provider 05/24/2105/30 Tavia Wyatt MD [address] [place] [address] Dermatology 07/14/21 Johnny Murillo MD [address] [place] [address] Assigned Musculoskeletal Provider 08/30/21 03/17/22 Erica Farrell APRN WASHER ENGINEER [address] [place], [place] [address] Nurse Practitioner Cardiovascular Disease 09/09/21 Teresita Bean, [facility] [address] [facility] [address] [place] [phone] Pharmacist Pharmacist 09/24/21 09/29/21 Tavia Wyatt MD Assigned Surgical Provider 11/29/21 05/07/22 [facility] [address] [place] [address] Assigned MTM Pharmacist 01/02/22 Rich Barrett MD [address] [facility] [address] [place], [place] [address] Physician Ophthalmology 01/21/22 Neil Kent MD [address] [place], [place] [phone] Dermatology 02/24/22 Roney Story DPM [address] [facility] [address] [place], [place] [address] Assigned Musculoskeletal Provider 03/20/22 08/13/22 Erica Farrell APRN WASHER ENGINEER [address] [place] [address] Assigned Heart and Vascular Provider 04/03/22 04/16/22 [facility] [address] [place] [address] Assigned MTM Pharmacist 04/07/22 [address] David [place] [address] [facility] [place] [address] Assigned Surgical Provider 05/08/22 10/08/22 Galo Burrell MD Assigned Heart and Vascular Provider 04/17/22 06/11/22 Livan Sharif MD [address] [place] [address] Cardiovascular Disease 05/14/22 Livan Sharif MD [address] [place] [address] Assigned Heart and Vascular Provider 06/12/22 07/23/22 Catherine Cm MD [address] [place] [address] Cardiovascular Disease 07/21/22 Valery Veronica PA-C [address] [place] [address] Physician Tank Car Loader Dermatology 07/21/22 Catherine Cm MD [address] [facility]00 [place] 827925 Assigned Heart and Vascular Provider 07/24/22 11/05/22 Johnny Murillo MD [address] [place], [place] [address] Assigned Musculoskeletal Provider 08/14/22 10/08/22 Brea Quinn APRN WASHER ENGINEER [address] [place] [address] Nurse Practitioner Dermatology 09/21/22 Brea Quinn APRN WASHER ENGINEER [address] [facility] [place] [address] Assigned Surgical Provider 10/09/22 [place] [address] RAZO [address] [place] [address] 815077 Assigned Musculoskeletal Provider 10/09/22 Livan Sharif MD [address] [place] [address] [place] [address] Assigned Heart and Vascular Provider 11/06/22 11/12/22 Catherine Cm MD [address] [place] [address] [place] [id number] Assigned Heart and Vascular Provider 11/13/22 05/27/23 Sydnie Martinez RN Personal Advocate & Liaison (PAL) Family Medicine 03/28/23 07/31/23 Alfonso Renteria MD [address] [facility] [address] [place] [address] Assigned Neuroscience Provider 04/02/23 Cheng Todd PA-C [address] [place], [place] [phone] Assigned PCP 04/30/23 07/15/23 Radha Lomeli APRN WASHER ENGINEER [address] [place], [place] [address] Assigned Heart and Vascular Provider 05/28/[address] [facility] [place] [address] Ophthalmology 06/15/23 Pao Joseph, VJ Personal Advocate & Liaison (PAL) Nurse 08/01/23 Esha Grimm PA-C [address] [place] [phone] Assigned PCP 07/16/23 Valery Veronica PA-C [address] [place] [address] 012805 Physician Tank Car Loader Dermatology 09/19/23 Rey Tay MD [address] [place] [address] 620235 Gastroenterology 09/20/23 Rocky Zepeda DO [address] [place] [address] 014355 Physician Gastroenterology 09/20/23 Philip Dumont MD [address] [place] [address] Physician Ophthalmology 09/22/23 documented as of this encounter
--- OUTSIDE RECORDS SUMMARY | 2023-10-15 22:00 | XMS_ITS | Encounter Summary ---
Author Name Unknown Organization [facility] Address [address] [place] [address] Care Team Providers Care Toll Ticket Clerk Name Role Phone Rakesh Cid PA-C Primary Care Provider Lita Oseguera Unavailable Unavailable Rakesh Cid PA-C Unavailable [phone] Lita Oseguera Unavailable Unavailable Marija Edgar APRN BOARD MILL SUPERVISOR Primary Care Provider Stacie marquis SiobhanChanelle COLOR MAKING SUPERVISOR CNM Unavailab le Lesley Moody CHW Unavailable [phone] Kyara De La Fuente RN Unavailable [phone] Marija Edgar APRN BOARD MILL SUPERVISOR Unavailable Unavail able Mynor Broussard MD Unavailable [phone] Kesiha Dotson MD Unavailable [phone] Mary Mejia Unavailable Unavailable Stacey Briones PATIENT SAFETY MANAGER Unavailable [phone] Lesley Moody CHW Unavailable Mary Mejia Unavailable Unavailable Lita Oseguera Unavailable Unavailable Galo Burrell MD Unavailable Unavailable Cristina Wood Unavailable Lesley Moody CHW Unavailable Meredith Bedoya Unavailable Unavailable Cristina Wood Unavailable ThangDiana [facility] Unavailable [phone] Rain Galaviz-C Unavailable [phone] Summer Lara MD Unavailable [phone] Summer Lara MD Unavailable [phone] Summer Lara MD Unavailable [phone] Tavia Wyatt MD Unavailable Unavailable Johnny Murillo MD Unavailable [phone] Erica Farrell APRN BOARD MILL SUPERVISOR Unavailable + Teresita Bean [facility] Unavailable Tavia Wyatt MD Unavailable Unavailable ThangDiana Stanislav [facility] Unavailable [phone] Rich Barrett MD Unavailable [phone] Neil Kent MD Unavailable Roney Story DPM Unavailable Erica Farrell APRN BOARD MILL SUPERVISOR Unavailable + DesirKendrickDiana T [facility] Unavailable [phone] Frankie Jelena Garcia OD Unavailable Galo Burrell MD Unavailable Unavailable Livan Sharif MD Unavailable + Livan Sharif MD Unavailable + Catherine Cm MD Unavailable + Valery Veronica-C Unavailable [phone] Catherine Cm MD Unavailable + Johnny Murillo MD Unavailable +[phone] Brea Quinn APRN BOARD MILL SUPERVISOR Unavailable [phone] Brea Quinn COLOR MAKING SUPERVISOR BOARD MILL SUPERVISOR Unavailable Jose Francisco Johnson MD Unavailable Livan Sharif MD Unavailable Catherine Cm MD Unavailable + Sydnie Martinez RN Unavailable Unavailable Alfonso Renteria MD Unavailable [phone] Esha GrimmC Primary Care Provider Cheng Todd PA-C Unavailable Radha Lomeli COLOR MAKING SUPERVISOR BOARD MILL SUPERVISOR Unavailable Jelena David OD Unavailable [phone] Pao Joseph RN Unavailable Unavailable Esha Grimm PA-C Unavailable [phone] Valery Veronica-C Unavailable Rey Tay MD Unavailable Rocky Zepeda DO Unavailable Philip Dumont MD Unavailable [phone] Encounter Details Date Type Department Care Team (Late st Contact Info) Description 04/28/2020 MyC Medical Advice [address] [address] Rakesh Cid PA-C [address] [place] [address] Social History Tobacco Use Types Packs/Day Years Used Date Smoking Tobacco: Former Cigarettes 1 Q uit: 12/07/2019 Other Smokeless Tobacco: Never Comments:Vaping Alcohol Use Standard Drinks/Week Comments Not Currently 0 (1 standard drink = 0.6 oz pur e alcohol) PHQ-2 Answer Date Recorded PHQ-2 Score 4 03/27/2020 Sex and Gender Information Value Date Recorded Sex Assigned at Female 03/02/2021 5:45 PM CDT Gender Identity Female 03/02/2021 5:45 PM CDT Sexual Orientation Straight 02/28/2020 12 :51 AM CDT COVID-19 Exposure Response Date Recorded In the last month, have you been in contact with someone who was confirmed or suspected to have Coronavirus / COVID-19? No / Unsure 04/30/2020 12:45 PM CDT documented as of this encounter Plan of Treatment Upcoming Encounters Date Type Department Care Team (Late st Contact Info) Description 10/25/2023 11:30 AM CDT Virtual Visit [facility] [address] [place] [phone] [address], [address] [place] [address] 11/03/2023 8:00 AM CDT [facility] Visit [facility] [address] [place] [phone] Valery Veronica PA-C [address] [place] [address] 11/29/2023 8:00 AM CDT Office Visit [facility] [address] [place] [phone] Esha Grimm PA-C [address] [place] [phone] 01/02/2024 8:00 AM CDT Office Visit [facility] [place] [address] [place] [phone] Lauren Claudio PA-C [address] [place], [place] [phone] Kelli Perez MD [address] [place], [place] [address] (work) documented as of this encounter Visit Diagnoses Not on filedocumented in this encounter Additional Health Concerns Infection Onset Date Last Indicated Resolved Time Rule Out COVID-19 07/30/2020 07/30/2020 07/30/2020 7:11 PM MANAGER TRANSIT Rule Out COVID-19 08/30/2020 08/30/2020 08/30/2020 5:05 PM MANAGER TRANSIT Rule Out COVID-19 09/24/2020 09/24/2020 09/24/2020 9:24 AM CDT Rule Out COVID-19 11/05/2020 11/05/2020 11/06/2020 1:09 PM CDT Rule Out COVID-19 05/11/2021 05/11/2021 05/13/2021 10:18 AM CDT Rule Out COVID-19 07/13/2021 07/13/2021 07/14/2021 3:04 PM MANAGER TRANSIT Rule Out COVID-19 07/18/2021 07/18/2021 07/20/2021 1:56 PM MANAGER TRANSIT COVID-19 07/18/2021 07/18/2021 08/08/2021 11:3 9 PM MANAGER TRANSIT Rule Out COVID-19 12/18/2021 12/18/2021 12/19/2021 11:34 AM CDT Rule Out COVID-19 02/24/2022 02/24/2022 02/25/2022 1:08 PM CDT Rule Out COVID-19 04/26/2022 04/26/2022 04/26/2022 6:47 AM CDT Rule Out COVID-19 05/17/2022 05/17/2022 05/17/2022 10:20 PM MANAGER TRANSIT Rule Out COVID-19 06/09/2022 06/09/2022 06/09/2022 9:35 AM MANAGER TRANSIT COVID-19 06/09/2022 06/09/2022 06/30/2022 11:4 1 PM MANAGER TRANSIT Rule Out COVID-19 11/10/2022 11/10/2022 11/11/2022 12:17 PM CDT Rule Out COVID-19 03/07/2023 03/07/2023 03/07/2023 1:20 PM CDT Assessment Noted Time PHQ-9 Depression Total Score: 12 020 2:40 PM CDT documented as of this encounter Care Teams Toll Ticket Clerk Relationship Specialty Start Date End Date Rakesh Cid PA-C PCP - General Physician Sales Operations Lead - Medical 05/14/19 04/29/20 Marija Edgar APRN BOARD MILL SUPERVISOR [address] [place] [address] PCP - General Nurse Practitioner 04/30/20 04/14/23 Esha Grimm PA-C [address] [place] [phone] PCP - General Family Medicine 05/04/23 Lita Oseguera Personal Advocate & Liaison (PAL) 02/28/20 03/27/23 Rakesh Cid PA-C [address] [place], [place] [address] Assigned PCP 03/02/20 06/07/20 Lita Oseguera Personal Advocate & Liaison (PAL) 04/07/20 04/29/20 Chanelle Mccann APRN CNM [address] [address] Assigned OBGYN Provider 05/02/2005/09 Lesley Moody, W Community Health Worker 05/30/2005/12 Kyara De La Fuente, RN Specialty Frame Stripper And Crusher Neurology 06/04/20 03/05/21 Marija Edgar APRN BOARD MILL SUPERVISOR [address] [place] [address] Assigned PCP 06/08/20 04/29/23 Mynor Broussard MD [address] [place] [address] Assigned Surgical Provider 06/01/20 11/28/21 Keisha Dotson MD [address] [place], [place] [phone] Assigned Neuroscience Provider 06/04/20 04/01/23 Mary Mejia Financial Resource Worker 08/07/20 08/21/20 Stacey Briones, [facility] Lead Frame Stripper And Crusher Primary Care - CC 08/11/2012/30 Lesley Moody, [facility] Community Health Worker 08/11/2010/01 Mary Mejia Financial Resource Worker 09/02/20 10/06/20 Lita Oseguera Personal Advocate & Liaison (PAL) Family Medicine 09/10/20 09/21/20 Galo Burrell MD Assigned Heart and Vascular Provider 10/05/20 04/02/22 Cristina Wood Financial Resource Worker 10/07/20 10/14/20 Lesley Moody, [facility] Community Health Worker 10/23/2012/30 Meredith Bedoya Financial Resource Worker 10/23/20 11/23/20 Cristina Wood Financial Resource Worker 02/09/21 02/09/21 Diana Desir, [facility] [address] [place] [address] Pharmacist Pharmacist 04/17/21 Rain Galaviz PA-C [address] [place] [address] [address] [place] [place] [address] Physician Sales Operations Lead Dermatology 04/28/21 Summer Lara MD [address] [place] [address] Assigned OBGYN Provider 05/10/2105/23 Summer Lara MD [address] [place] [address] Assigned OBGYN Provider 05/31/21 Summer Lara MD [address] [place] [address] Assigned OBGYN Provider 05/24/2105/30 Tavia Wyatt MD [address] [place] [address] Dermatology 07/14/21 Johnny Murillo MD [address] [place] [address] Assigned Musculoskeletal Provider 08/30/21 03/17/22 Erica Farrell APRN BOARD MILL SUPERVISOR [address] [facility] [address] [place] [address] Nurse Practitioner Cardiovascular Disease 09/09/21 Teresita Bean, [facility] [address] [place] [address] Pharmacist Pharmacist 09/24/21 09/29/21 Tavia Wyatt MD Assigned Surgical Provider 11/29/21 05/07/22 Diana Desir, [facility] [address] [place] [address] Assigned MTM Pharmacist 01/02/22 Rich Barrett MD [address] [address] Physician Ophthalmology 01/21/22 Neil Kent MD [address] [place], [place] [phone] Dermatology 02/24/22 [place] [address] [facility] [address] [place] [address] Assigned Musculoskeletal Provider 03/20/22 08/13/22 Erica Farrell APRN BOARD MILL SUPERVISOR [address] [place] [address] Assigned Heart and Vascular Provider 04/03/22 04/16/22 Diana Desir, [facility] [address] [place] [address] Assigned MTM Pharmacist 04/07/22 Jelena David OD [address] [place] [address] Assigned Surgical Provider 05/08/22 10/08/22 Galo Burrell MD Assigned Heart and Vascular Provider 04/17/22 06/11/22 Livan Sharif MD [address], [facility] [address] [place] [address] Cardiovascular Disease 05/14/22 Livan Sharif MD [address], [place] [address] [place] [address] Assigned Heart and Vascular Provider 06/12/22 07/23/22 Catherine Cm MD [address] [place] [address] Cardiovascular Disease 07/21/22 Valery Veronica, PAUcheC [address] [place] [address] Physician Sales Operations Lead Dermatology 07/21/22 Catherine Cm MD [address] [facility] [address] [place] [address] Assigned Heart and Vascular Provider 07/24/22 11/05/22 Johnny Murillo MD [address] [place] [address] [phone] Assigned Musculoskeletal Provider 08/14/22 10/08/22 Brea Quinn APRN BOARD MILL SUPERVISOR [address] [place] [address] Nurse Practitioner Dermatology 09/21/22 Brea Quinn APRN BOARD MILL SUPERVISOR [address] [place] [address] [place] 353232 Assigned Surgical Provider 10/09/22 [place] [address] [place] [facility] [address] [place] [address] Assigned Musculoskeletal Provider 10/09/22 Livan Sharif MD [address] [place] [address] Assigned Heart and Vascular Provider 11/06/22 11/12/22 Catherine Cm MD [address] [place] [address] Assigned Heart and Vascular Provider 11/13/22 05/27/23 Sydnie Martinez RN Personal Advocate & Liaison (PAL) Family Medicine 03/28/23 07/31/23 Alfonso Renteria MD [address] [facility] [address] [place] [address] Assigned Neuroscience Provider 04/02/23 Cheng Todd PA-C [address] [place], [place] [phone] Assigned PCP 04/30/23 07/15/23 Radha Lomeli, ARLENE BOARD MILL SUPERVISOR [address] [place] [address] Assigned Heart and Vascular Provider 05/28/23 Jelena David OD [address] [place] [address] Ophthalmology 06/15/23 Pao Joseph, VJ Personal Advocate & Liaison (PAL) Nurse 08/01/23 Esha Grimm PA-C [address] [facility] [place] [phone] Assigned PCP 07/16/23 Valery Veronica PA-C [address] [place], [place] [address] Physician Sales Operations Lead Dermatology 09/19/23 Rey Tay MD [address] [place] [address] MD Gastroenterology 09/20/23 Rocky Zepeda DO [address] [place] [address] 022505 Physician Gastroenterology 09/20/23 Philip Dumont MD [address] [place] [address]34[address] Physician Ophthalmology 09/22/23 documented as of this encounter
--- OUTSIDE RECORDS SUMMARY | 2023-10-15 22:00 | XMS_ITS | Encounter Summary ---
Author Name Unknown Organization [facility] Address [address] [place] [address] Care Team Providers Care Medical Service Representative Name Role Phone Lita Oseguera Unavailable Unavailable Rakesh Cid PA-C Unavailable [phone] Marija Edgar APRN DEPUTY HARBORMASTER Primary Care Provider Chanelle Gutierrez INSTRUCTIONAL SYSTEMS DESIGNER CNM Unavailab le Lesley oMody CHW Unavailable Kyara De La Fuente RN Unavailable [phone] Marija Edgar APRN DEPUTY HARBORMASTER Unavailable Unavail able Mynor Broussard MD Unavailable [phone] Keisha Dotson MD Unavailable [phone] Mary Mejia Unavailable Unavailable Stacey Briones BATCH FREEZER OPERATOR Unavailable [phone] Lesley Moody CHW Unavailable Mary Mejia Unavailable Unavailable Lita Oseguera Unavailable Unavailable Galo Burrell MD Unavailable Unavailable Cristina Wood Unavailable Lesley Moody CHW Unavailable [phone] Meredith Bedoya Unavailable Unavailable Cristina Wood Unavailable Diana Desir [facility] Unavailable [phone] Anastacia Rain Paredes PA-C Unavailable [phone] Summer Lara MD Unavailable [phone] Summer Lara MD Unavailable [phone] Summer Lara MD Unavailable [phone] Tavia Wyatt MD Unavailable Unavailable Johnny Murillo MD Unavailable +1- Erica Farrell INSTRUCTIONAL SYSTEMS DESIGNER DEPUTY HARBORMASTER Unavailable + VikasTeresita [facility] Unavailable Tavia Wyatt MD Unavailable Unavailable Desir Diana [place] [facility] Unavailable [phone] Rich Barrett MD Unavailable [phone] Neil Kent MD Unavailable Roney Story DPM Unavailable [phone] Erica Farrell INSTRUCTIONAL SYSTEMS DESIGNER DEPUTY HARBORMASTER Unavailable + Diana Desir [facility] Unavailable [phone] Jelena David OD Unavailable Galo Burrell MD Unavailable Unavailable Livan Sharif MD Unavailable + Livan Sharif MD Unavailable + Catherine Cm MD Unavailable + Valery Veronica PA-C Unavailable [phone] Catherine Cm MD Unavailable + Johnny Murillo MD Unavailable +1- Brea Quinn INSTRUCTIONAL SYSTEMS DESIGNER DEPUTY HARBORMASTER Unavailable [phone] Brea Quinn APRN DEPUTY HARBORMASTER Unavailable [phone] Jose Francisco Johnson MD Unavailable + Livan Sharif MD Unavailable Catherine Cm MD Unavailable + Sydnie Martinez RN Unavailable Unavailable Alfonso Renteria MD Unavailable [phone] Esha Grimm PA-C Primary Care Provider [phone] Cheng Todd PA-C Unavailable [phone] Radha Lomeli APRN DEPUTY HARBORMASTER Unavailable [phone] Jelena David OD Unavailable Pao Joseph RN Unavailable Unavailable Esha GrimmC Unavailable [phone] Valery Veronica PA-C Unavailable [phone] Rey Tay MD Unavailable Rocky Zepeda DO Unavailable Philip Dumont MD Unavailable [phone] Encounter Details Date Type Department Care Team (Late st Contact Info) Description 06/05/2020 [facility] Medical Advice [address] [phone] Marija Edgar, ARLENE DEPUTY HARBORMASTER Social History Tobacco Use Types Packs/Day Years Used Date Smoking Tobacco: Former Cigarettes 1 Q uit: 12/07/2019 Other Smokeless Tobacco: Never Alcohol Use Standard Drinks/Week Comments Not Currently 0 (1 standard drink = 0.6 oz pur e alcohol) PHQ-2 Answer Date Recorded PHQ-2 Score 1 06/04/2020 Comments Yes Sex and Gender Information Value Date Recorded Sex Assigned at Female 03/02/2021 5:45 PM CDT Gender Identity Female 03/02/2021 5:45 PM CDT Sexual Orientation Straight 02/28/2020 12 :51 AM CDT COVID-19 Exposure Response Date Recorded In the last month, have you been in contact with someone who was confirmed or suspected to have Coronavirus / COVID-19? No / Unsure 06/04/2020 10:30 AM MAIN LINE ASSEMBLER documented as of this encounter Miscellaneous Notes * Telephone Encounter - Marija Edgar APRN CNP - 06/09/2020 9:38 AM MAIN LINE ASSEMBLER Those referrals have been placed. The mental health attempted call but patient did not answer. Please have patient check voicemail's or await one further follow-up call. They will call her to set up Holter monitor. Thank you Marija Edgar APRN CNP on 06/09/2020 at 9:40 AM LINE ASSEMBLER documented in this encounter Plan of Treatment Upcoming Encounters Date Type Department Care Team (Late st Contact Info) Description 10/25/2023 11:30 AM CDT Virtual Visit [facility] [address] [place] [phone] [place], [address] [place] [address] 11/03/2023 8:00 AM CDT Office Visit [facility] [address] [place] [phone] Valery Veronica PA-C [address] [place] [address] 11/29/2023 8:00 AM CDT Office Visit [facility] [address] [place] [phone] Esha Grimm PA-C [address] [place] [address] 01/02/2024 8:00 AM CDT Office Visit [facility] [place] [address] [place] [phone] Lauren Claudio PA-C [address] [place], [place] [phone] Kelli Perez MD [address] [facility] [address] [place] [address] documented as of this encounter Visit Diagnoses Not on filedocumented in this encounter Additional Health Concerns Infection Onset Date Last Indicated Resolved Time Rule Out COVID-19 07/30/2020 07/30/2020 07/30/2020 7:11 PM MAIN LINE ASSEMBLER Rule Out COVID-19 08/30/2020 08/30/2020 08/30/2020 5:05 PM MAIN LINE ASSEMBLER Rule Out COVID-19 09/24/2020 09/24/2020 09/24/2020 9:24 AM CDT Rule Out COVID-19 11/05/2020 11/05/2020 11/06/2020 1:09 PM CDT Rule Out COVID-19 05/11/2021 05/11/2021 05/13/2021 10:18 AM CDT Rule Out COVID-19 07/13/2021 07/13/2021 07/14/2021 3:04 PM MAIN LINE ASSEMBLER Rule Out COVID-19 07/18/2021 07/18/2021 07/20/2021 1:56 PM MAIN LINE ASSEMBLER COVID-19 07/18/2021 07/18/2021 08/08/2021 11:3 9 PM MAIN LINE ASSEMBLER Rule Out COVID-19 12/18/2021 12/18/2021 12/19/2021 11:34 AM CDT Rule Out COVID-19 02/24/2022 02/24/2022 02/25/2022 1:08 PM CDT Rule Out COVID-19 04/26/2022 04/26/2022 04/26/2022 6:47 AM CDT Rule Out COVID-19 05/17/2022 05/17/2022 05/17/2022 10:20 PM MAIN LINE ASSEMBLER Rule Out COVID-19 06/09/2022 06/09/2022 06/09/2022 9:35 AM MAIN LINE ASSEMBLER COVID-19 06/09/2022 06/09/2022 06/30/2022 11:4 1 PM MAIN LINE ASSEMBLER Rule Out COVID-19 11/10/2022 11/10/2022 11/11/2022 12:17 PM CDT Rule Out COVID-19 03/07/2023 03/07/2023 03/07/2023 1:20 PM CDT Assessment Noted Time PHQ-9 Depression Total Score: 9 06/04/20 10:35 AM MAIN LINE ASSEMBLER documented as of this encounter Care Teams Medical Service Representative Relationship Specialty Start Date End Date Marija Edgar APRN DEPUTY HARBORMASTER [address] [facility] [place] [address] PCP - General Nurse Practitioner 04/30/20 04/14/23 Esha Grimm PA-C [address] [place] [phone] PCP - General Family Medicine 05/04/23 Lita Oseguera Personal Advocate & Liaison (PAL) 02/28/20 03/27/23 Rakesh Cid PA-C [address] [place] [address] Assigned PCP 03/02/20 06/07/20 Chanelle Mccann APRN CNM [address] [address] Assigned OBGYN Provider 05/02/2005/09 Lesley Moody, W Community Health Worker 05/30/2005/12 Kyara De La Fuente, RN Specialty Paper Cutter Operator Neurology 06/04/20 03/05/21 Marija Edgar APRN DEPUTY HARBORMASTER [address] [place] [address] Assigned PCP 06/08/20 04/29/23 Mynor Broussard MD [address] [place] [address] Assigned Surgical Provider 06/01/20 11/28/21 Keisha Dotson MD [address] [place], [place] [address] Assigned Neuroscience Provider 06/04/20 04/01/23 Mary Mejia Financial Resource Worker 08/07/20 08/21/20 Stacey Briones, [facility] Lead Paper Cutter Operator Primary Care - CC 08/11/2012/30 Lesley Moody, W Community Health Worker 08/11/2010/01 Mary Mejia Financial Resource Worker 09/02/20 10/06/20 Lita Oseguera Personal Advocate & Liaison (PAL) Family Medicine 09/10/20 09/21/20 Galo Burrell MD Assigned Heart and Vascular Provider 10/05/20 04/02/22 Cristina Wood Financial Resource Worker 10/07/20 10/14/20 Lesley Moody, [facility] Community Health Worker 10/23/2012/30 Meredith Bedoya Financial Resource Worker 10/23/20 11/23/20 Cristina Wood Financial Resource Worker 02/09/21 02/09/21 Diana Desir, [facility] [address] [place] [address] Pharmacist Pharmacist 04/17/21 Rain Galaviz PA-C [address] [place] [address] [address] [place] [address] Physician Wind Site Manager Dermatology 04/28/21 Summer Lara MD [address] [facility] [place] [address] Assigned OBGYN Provider 05/10/2105/23 Summer Lara MD [address] [facility] [place] [address] Assigned OBGYN Provider 05/31/21 Summer Lara MD [address] [facility] [place] [address] Assigned OBGYN Provider 05/24/2105/30 Tavia Wyatt MD [address] [place] [address] Dermatology 07/14/21 Johnny Murillo MD [address] [facility] [address] [place] [address] Assigned Musculoskeletal Provider 08/30/21 03/17/22 Erica Farrell APRN DEPUTY HARBORMASTER [address] [facility] [address] [place] [address] Nurse Practitioner Cardiovascular Disease 09/09/21 Teresita Bean [facility] [address] [phone] Pharmacist Pharmacist 09/24/21 09/29/21 Tavia Wyatt MD Assigned Surgical Provider 11/29/21 05/07/22 [facility] [address] [place] [address] Assigned MTM Pharmacist 01/02/22 Rich Barrett MD [address] [facility] [address] [place], [place] [address] Physician Ophthalmology 01/21/22 Neil Kent MD [address] [place], [place] 3[address] Dermatology 02/24/22 Roney Story DPM [address] [facility] [address] [place], [place] [address] Assigned Musculoskeletal Provider 03/20/22 08/13/22 Erica Farrell APRN DEPUTY HARBORMASTER [address] [place] [address] Assigned Heart and Vascular Provider 04/03/22 04/16/22 Diana Desir, [facility] [address] [place] [address] Assigned MTM Pharmacist 04/07/22 Jelena David OD [address] [place] [place] [address] Assigned Surgical Provider 05/08/22 10/08/22 Galo Burrell MD Assigned Heart and Vascular Provider 04/17/22 06/11/22 Livan Sharif MD [address] , [facility] [address] [place] [address] Cardiovascular Disease 05/14/22 Livan Sharif MD [id number] [place] [address] Assigned Heart and Vascular Provider 06/12/22 07/23/22 Catherine Cm MD [address] [facility] Sylvia [address] [address] Cardiovascular Disease 07/21/22 Valery Veronica, PA-C [address] [place] [phone] Physician Wind Site Manager Dermatology 07/21/22 Catherine Cm MD [address] [address] Assigned Heart and Vascular Provider 07/24/22 11/05/22 Johnny Murillo MD [address] [place] [address]194 Assigned Musculoskeletal Provider 08/14/22 10/08/22 Brea Quinn APRN DEPUTY HARBORMASTER [address] [place] [address] Nurse Practitioner Dermatology 09/21/22 Brea Quinn APRN DEPUTY HARBORMASTER [address] [place] [address] [place] [address] Assigned Surgical Provider 10/09/22 [place] [address] DANNI [address] [place] [address] Assigned Musculoskeletal Provider 10/09/22 Livan Sharif MD [address], [facility] [address] [place] [address] Assigned Heart and Vascular Provider 11/06/22 11/12/22 Catherine Cm MD [address] [facility] [address] [place] [address] Assigned Heart and Vascular Provider 11/13/22 05/27/23 Sydnie Martinez RN Personal Advocate & Liaison (PAL) Family Medicine 03/28/23 07/31/23 Alfonso Renteria MD [address] [facility] 200 [place] [address] Assigned Neuroscience Provider 04/02/23 Cheng Todd PA-C [address] [place], [place] [phone] Assigned PCP 04/30/23 07/15/23 Radha Lomeli, ARLENE DEPUTY HARBORMASTER [address] [place] [address] Assigned Heart and Vascular Provider 05/28/23 Jelena David OD [address] [facility] [place] [address] Ophthalmology 06/15/23 Pao Joseph RN Personal Advocate & Liaison (PAL) Nurse 08/01/23 Esha Grimm PA-C [address] [place] [address] Assigned PCP 07/16/23 Valery Veronica PA-C [address] [place], [place] [address] Physician Wind Site Manager Dermatology 09/19/23 Rey Tay MD [address] [place] [id number] MD Gastroenterology 09/20/23 Rocky Zepeda DO [address] [place] [address]185 Physician Gastroenterology 09/20/23 Philip Dumont MD [address] [place] [address]47105 Physician Ophthalmology 09/22/23 documented as of this encounter
--- OUTSIDE RECORDS SUMMARY | 2023-10-15 22:00 | XMS_ITS | Encounter Summary ---
Author Name Unknown Organization [facility] Address [address] [place] [address] Care Team Providers Care Title Department Manager Name Role Phone Rakesh Cid PA-C Primary Care Provider Lita Oseguera Unavailable Unavailable Rakesh Cid PA-C Unavailable + [phone] Lita Oseguera Unavailable Unavailable Marija Edgar APRN FLANGING ROLL OPERATOR Primary Care Provider Stacie marquis SiobhanChanelle TOW BOAT CAPTAIN CNM Unavailab le Lesley Moody CHW Unavailable [phone] Kyara De La Fuente RN Unavailable [phone] Marija Edgar APRN FLANGING ROLL OPERATOR Unavailable Unavail able Mynor Broussard MD Unavailable [phone] Keisha Dotson MD Unavailable Mary Mejia Unavailable Unavailable Stacey Briones AIX ARCHITECT Unavailable [phone] Lesley Moody CHW Unavailable Mary Mejia Unavailable Unavailable Lita Oseguera Unavailable Unavailable Galo Burrell MD Unavailable Unavailable Cristina Wood Unavailable Lesley Moody CHW Unavailable [phone] Meredith Bedoya Unavailable Unavailable Cristina Wood Unavailable ThangDiana [facility] Unavailable [phone] Rian Galaviz-C Unavailable +[phone] Summer Lara MD Unavailable [phone] Summer Lara MD Unavailable +[phone] Summer Lara MD Unavailable +[phone] Tavia Wyatt MD Unavailable Unavailable Johnny Murillo MD Unavailable +[phone] Erica Farrell APRN FLANGING ROLL OPERATOR Unavailable + Teresita Bean [facility] Unavailable Tavia Wyatt MD Unavailable Unavailable ThangDiana Stanislav [facility] Unavailable [phone] Rich Barrett MD Unavailable +[phone] Neil Kent MD Unavailable Roney Story DPM Unavailable Erica Farrell APRN FLANGING ROLL OPERATOR Unavailable + DesirKendrickDiana T [facility] Unavailable +[phone] Frankie Jelena Garcia OD Unavailable [phone] Galo Burrell MD Unavailable Unavailable Livan Sharif MD Unavailable + Livan Sharif MD Unavailable + Catherine Cm MD Unavailable + Valery Veronica-C Unavailable [phone] Catherine Cm MD Unavailable + Johnny Murillo MD Unavailable +1- Brea Quinn APRN FLANGING ROLL OPERATOR Unavailable [phone] Brea Quinn TOW BOAT CAPTAIN FLANGING ROLL OPERATOR Unavailable Jose Francisco Johnson MD Unavailable Livan Sharif MD Unavailable Catherine Cm MD Unavailable + Sydnie Martinez RN Unavailable Unavailable Alfonso Renteria MD Unavailable [phone] Esha GrimmC Primary Care Provider Cheng Todd PA-C Unavailable Radha Lomeli TOW BOAT CAPTAIN FLANGING ROLL OPERATOR Unavailable Jelena David OD Unavailable Pao Joseph RN Unavailable Unavailable Esha Grimm PA-C Unavailable [phone] Valery Veronica-C Unavailable Rey Tay MD Unavailable Rocky Zepeda DO Unavailable Philip Dumont MD Unavailable [phone] Encounter Details Date Type Department Care Team (Late st Contact Info) Description 04/25/2020 My[facility] Medical Advice [address] [address] Rakesh Cid PA-C [address] [place] [address] Social History Tobacco Use Types [...] have Coronavirus / COVID-19? No / Unsure 04/13/2020 1:42 PM CDT documented as of this encounter Plan of Treatment Upcoming Encounters Date Type Department Care Team (Late st Contact Info) Description 10/25/2023 11:30 AM CDT Virtual Visit [facility] [address] [place] [phone] Nelly [place], [address] [place] [address] 11/03/2023 8:00 AM CDT Office Visit [facility] [address] [place] [phone] Valery Veronica PA-C [address] [place] [place] [address] 11/29/2023 8:00 AM CDT Office Visit [facility] [address] [place] [phone] Esha Grimm PA-C [address] [place] [phone] 01/02/2024 8:00 AM CDT Office Visit [facility] [place] [address] [place] [phone] Lauren Claudio PA-C [address], [place] [phone] Kelli Perez MD [address] [place] [address] [place], [place] [phone] (work) documented as of this encounter Visit Diagnoses Not on filedocumented in this encounter Additional Health Concerns Infection Onset Date Last Indicated Resolved Time Rule Out COVID-19 07/30/2020 07/30/2020 07/30/2020 7:11 PM SALES AGENT PEST CONTROL SERVICE Rule Out COVID-19 08/30/2020 08/30/2020 08/30/2020 5:05 PM SALES AGENT PEST CONTROL SERVICE Rule Out COVID-19 09/24/2020 09/24/2020 09/24/2020 9:24 AM CDT Rule Out COVID-19 11/05/2020 11/05/2020 11/06/2020 1:09 PM CDT Rule Out COVID-19 05/11/2021 05/11/2021 05/13/2021 10:18 AM CDT Rule Out COVID-19 07/13/2021 07/13/2021 07/14/2021 3:04 PM SALES AGENT PEST CONTROL SERVICE Rule Out COVID-19 07/18/2021 07/18/2021 07/20/2021 1:56 PM SALES AGENT PEST CONTROL SERVICE COVID-19 07/18/2021 07/18/2021 08/08/2021 11:3 9 PM SALES AGENT PEST CONTROL SERVICE Rule Out COVID-19 12/18/2021 12/18/2021 12/19/2021 11:34 AM CDT Rule Out COVID-19 02/24/2022 02/24/2022 02/25/2022 1:08 PM CDT Rule Out COVID-19 04/26/2022 04/26/2022 04/26/2022 6:47 AM CDT Rule Out COVID-19 05/17/2022 05/17/2022 05/17/2022 10:20 PM SALES AGENT PEST CONTROL SERVICE Rule Out COVID-19 06/09/2022 06/09/2022 06/09/2022 9:35 AM SALES AGENT PEST CONTROL SERVICE COVID-19 06/09/2022 06/09/2022 06/30/2022 11:4 1 PM SALES AGENT PEST CONTROL SERVICE Rule Out COVID-19 11/10/2022 11/10/2022 11/11/2022 12:17 PM CDT Rule Out COVID-19 03/07/2023 03/07/2023 03/07/2023 1:20 PM CDT Assessment Noted Time PHQ-9 Depression Total Score: 12 020 2:40 PM CDT documented as of this encounter Care Teams Title Department Manager Relationship Specialty Start Date End Date Rakesh Cid PA-C PCP - General Physician M1 Armor Crewman - Medical 05/14/19 04/29/20 Marija Edgar APRN FLANGING ROLL OPERATOR [address] [place] [address] PCP - General Nurse Practitioner 04/30/20 04/14/23 Esha Grimm PA-C [address] [place] [phone] PCP - General Family Medicine 05/04/23 Lita Oseguera Personal Advocate & Liaison (PAL) 02/28/20 03/27/23 Rakesh Cid PA-C [address] [address] [place], [place] [address] Assigned PCP 03/02/20 06/07/20 Lita Oseguera Personal Advocate & Liaison (PAL) 04/07/20 04/29/20 Chanelle Mccann APRN CNM [address] [address] Assigned OBGYN Provider 05/02/2005/09 Lesley Moody, W Community Health Worker 05/30/2005/12 Kyara De La Fuente, RN Specialty Rehab Aid Neurology 06/04/20 03/05/21 Marija Edgar APRN FLANGING ROLL OPERATOR [address] [place] [address] Assigned PCP 06/08/20 04/29/23 Mynor Broussard MD [address] [place] [address] Assigned Surgical Provider 06/01/20 11/28/21 Keisha Dotson MD 909 [place], [place] 793615 Assigned Neuroscience Provider 06/04/20 04/01/23 Mary Mejia Financial Resource Worker 08/07/20 08/21/20 Stacey Briones, [facility] Lead Rehab Aid Primary Care - CC 08/11/2012/30 Lesley Moody, [facility] Community Health Worker 08/11/2010/01 Mary Mejia Financial Resource Worker 09/02/20 10/06/20 Lita Oseguera Personal Advocate & Liaison (PAL) Family Medicine 09/10/20 09/21/20 Galo Burrell MD Assigned Heart and Vascular Provider 10/05/20 04/02/22 Cristina Wood Financial Resource Worker 10/07/20 10/14/20 Lesley Moody, [facility] Community Health Worker 10/23/2012/30 Meredith Bedoya Financial Resource Worker 10/23/20 11/23/20 Cristina Wood Financial Resource Worker 02/09/21 02/09/21 Diana Desir, [facility] 3033 [place] [address] Pharmacist Pharmacist 04/17/21 Rain Galaviz PA-C [address] [place] [address] DR [facility] [place] [address] Physician M1 Armor Crewman Dermatology 04/28/21 Summer Lara MD [address] [place] [address] Assigned OBGYN Provider 05/10/2105/23 Summer Lara MD [address] [place] [address] Assigned OBGYN Provider 05/31/21 Summer Lara MD [address] [place] [address] Assigned OBGYN Provider 05/24/2105/30 Tavia Wyatt MD [address] [place] [address] Dermatology 07/14/21 Johnny Murillo MD [address] [place] [address] Assigned Musculoskeletal Provider 08/30/21 03/17/22 Erica Farrell APRN FLANGING ROLL OPERATOR [address] [facility] [address] [place] [address] Nurse Practitioner Cardiovascular Disease 09/09/21 Teresita Bean, [facility] [address] [place] [address] Pharmacist Pharmacist 09/24/21 09/29/21 Tavia Wyatt MD Assigned Surgical Provider 11/29/21 05/07/22 Diana Desir, [facility] 3033 [place] [address] Assigned MTM Pharmacist 01/02/22 Rich Barrett MD [address] 719155 Physician Ophthalmology 01/21/22 Neil Kent MD [address] [place] [address]555 Dermatology 02/24/22 Roney Story DPM [address] [facility] [address] [place] [address] Assigned Musculoskeletal Provider 03/20/22 08/13/22 Erica Farrell APRN FLANGING ROLL OPERATOR [address]00 [place] [address] Assigned Heart and Vascular Provider 04/03/22 04/16/22 Diana Desir, [facility] 30[address] [place] [address] Assigned MTM Pharmacist 04/07/22 Jelena David OD [address] [facility] [place] [address] Assigned Surgical Provider 05/08/22 10/08/22 Galo Burrell MD Assigned Heart and Vascular Provider 04/17/22 06/11/22 Livan Sharif MD [address], [facility] [address] [place] [address] Cardiovascular Disease 05/14/22 Livan Sharif MD [address], [place] [address] Assigned Heart and Vascular Provider 06/12/22 07/23/22 Catherine Cm MD [address] [place] [address] Cardiovascular Disease 07/21/22 Valery Veronica, PAUcheC [address] [place] [address] Physician M1 Armor Crewman Dermatology 07/21/22 Catherine Cm MD [address] [facility] [address] [place] [address] Assigned Heart and Vascular Provider 07/24/22 11/05/22 Johnny Murillo MD [address] [place] [address] 523274 Assigned Musculoskeletal Provider 08/14/22 10/08/22 Brea Quinn APRN FLANGING ROLL OPERATOR [address] [place] [address] 781895 Nurse Practitioner Dermatology 09/21/22 Brea Quinn APRN FLANGING ROLL OPERATOR [address] [place] [address] [place] 786732 Assigned Surgical Provider 10/09/22 [place] [address] [place] [facility] 300 [place] [address] Assigned Musculoskeletal Provider 10/09/22 Livan Sharif MD [address], [place] [address] [place] [address] Assigned Heart and Vascular Provider 11/06/22 11/12/22 Catherine Cm MD [address] [address] [place] [address] Assigned Heart and Vascular Provider 11/13/22 05/27/23 Sydnie Martinez RN Personal Advocate & Liaison (PAL) Family Medicine 03/28/23 07/31/23 Alfonso Renteria MD 5775 [facility] 200 [place] [address] Assigned Neuroscience Provider 04/02/23 Cheng Todd PA-C [address] [place], [place] 32[address] Assigned PCP 04/30/23 07/15/23 Radha Lomeli, ARLENE FLANGING ROLL OPERATOR [address] [place] [address] Assigned Heart and Vascular Provider 05/28/23 Jelena David OD [address] [facility] [place] [address] Ophthalmology 06/15/23 Pao Joseph, VJ Personal Advocate & Liaison (PAL) Nurse 08/01/23 Esha Grimm PA-C 40[address] [facility] [place] [address] Assigned PCP 07/16/23 Valery Veronica PA-C 909 [place], [place] [address] Physician M1 Armor Crewman Dermatology 09/19/23 Rey Tay MD [address] [place] [address] [id number] MD Gastroenterology 09/20/23 Rocky Zepeda DO [address] [place] [address] 598435 Physician Gastroenterology 09/20/23 Philip Dumont MD [address] [place] [address] 499275 Physician Ophthalmology 09/22/23 documented as of this encounter
--- OUTSIDE RECORDS SUMMARY | 2023-10-15 22:00 | XMS_ITS | Encounter Summary ---
Author Name Unknown Organization [facility] Address [address] [place] [address] Care Team Providers Care Line And Frame Poler Name Role Phone Lita Oseguera Unavailable Unavailable Rakesh Cid PA-C Unavailable [phone] Marija Edgar APRN AGRICULTURAL EXTENSION AGENT Primary Care Provider Chanelle Gutierrez ADVERTISING PHOTOGRAPHER CNM Unavailab le Lesley Moody CHW Unavailable [phone] Kyara De La Fuente RN Unavailable [phone] Marija Edgar APRN AGRICULTURAL EXTENSION AGENT Unavailable Unavail able Mynor Broussard MD Unavailable [phone] Keisha Dotson MD Unavailable [phone] Mary Mejia Unavailable Unavailable Stacey Briones DATA WAREHOUSING ENGINEER Unavailable [phone] Lesley Moody CHW Unavailable Mary Mejia Unavailable Unavailable Lita Oseguera Unavailable Unavailable Galo Burrell MD Unavailable Unavailable Cristina Wood Unavailable Lesley Moody CHW Unavailable [phone] Meredith Bedoya Unavailable Unavailable Cristina Wood Unavailable Diana Desir [facility] Unavailable [phone] Anastacia Rain Paredes PA-C Unavailable [phone] Summer Lara MD Unavailable +[phone] Summer Lara MD Unavailable +[phone] Summer Lara MD Unavailable +[phone] Tavia Wyatt MD Unavailable Unavailable Johnny Murillo MD Unavailable +1- Erica Farrell ADVERTISING PHOTOGRAPHER AGRICULTURAL EXTENSION AGENT Unavailable + VikasTeresita [facility] Unavailable Tavia Wyatt MD Unavailable Unavailable Desir Diana [place] [facility] Unavailable [phone] Rich Barrett MD Unavailable [phone] Neil Kent MD Unavailable Roney Story DPM Unavailable [phone] Erica Farrell ADVERTISING PHOTOGRAPHER AGRICULTURAL EXTENSION AGENT Unavailable + Diana Desir [facility] Unavailable +[phone] Jelena David OD Unavailable Galo Burrell MD Unavailable Unavailable Livan Sharif MD Unavailable + Livan Sharif MD Unavailable + Catherine Cm MD Unavailable + Valery Veronica PA-C Unavailable [phone] Catherine Cm MD Unavailable + Johnny Murillo MD Unavailable +1- Brea Quinn ADVERTISING PHOTOGRAPHER AGRICULTURAL EXTENSION AGENT Unavailable [phone] Brea Quinn APRN AGRICULTURAL EXTENSION AGENT Unavailable [phone] Jose Francisco Johnson MD Unavailable + Livan Sharif MD Unavailable Catherine Cm MD Unavailable + Sydnie Martinez RN Unavailable Unavailable Aflonso Renteria MD Unavailable [phone] Esha Grimm PA-C Primary Care Provider [phone] Cheng Todd PA-C Unavailable Radha Lomeli APRN AGRICULTURAL EXTENSION AGENT Unavailable Jelena David OD Unavailable [phone] Pao Joseph RN Unavailable Unavailable Esha GrimmC Unavailable [phone] Valery Veronica PA-C Unavailable Rey Tay MD Unavailable Rocky Zepeda DO Unavailable Philip Dumont MD Unavailable Encounter Details Date Type Department Care Team (Late st Contact Info) Description 05/23/2020 [facility] [place] [address] [address] Marija Edgar, ARLENE AGRICULTURAL EXTENSION AGENT Social History Tobacco Use Types Packs/Day Years [...] COVID-19? No / Unsure 05/12/2020 9:03 AM CARDIAC/VASCULAR SONOGRAPHER documented as of this encounter Plan of Treatment Upcoming Encounters Date Type Department Care Team (Late st Contact Info) Description 10/25/2023 11:30 AM CDT Virtual Visit [facility] [address] [place] [phone] [address], [address] [place] [address] 11/03/2023 8:00 AM CDT Office Visit [facility] [address] [place] [phone] Valery Veronica PA-C [address] [place] [address] 11/29/2023 8:00 AM CDT Office Visit [facility] [address] [place] [phone] Esha Grimm PA-C [address] [place] [address] 01/02/2024 8:00 AM CDT Office Visit [facility] [address] [place] [phone] Lauren Claudio PA-C [address] [place], [place] [phone] Kelli Perez MD [address] 430414 documented as of this encounter Visit Diagnoses Not on filedocumented in this encounter Additional Health Concerns Infection Onset Date Last Indicated Resolved Time Rule Out COVID-19 07/30/2020 07/30/2020 07/30/2020 7:11 PM CARDIAC/VASCULAR SONOGRAPHER Rule Out COVID-19 08/30/2020 08/30/2020 08/30/2020 5:05 PM CARDIAC/VASCULAR SONOGRAPHER Rule Out COVID-19 09/24/2020 09/24/2020 09/24/2020 9:24 AM CDT Rule Out COVID-19 11/05/2020 11/05/2020 11/06/2020 1:09 PM CDT Rule Out COVID-19 05/11/2021 05/11/2021 05/13/2021 10:18 AM CDT Rule Out COVID-19 07/13/2021 07/13/2021 07/14/2021 3:04 PM CARDIAC/VASCULAR SONOGRAPHER Rule Out COVID-19 07/18/2021 07/18/2021 07/20/2021 1:56 PM CARDIAC/VASCULAR SONOGRAPHER COVID-19 07/18/2021 07/18/2021 08/08/2021 11:3 9 PM CARDIAC/VASCULAR SONOGRAPHER Rule Out COVID-19 12/18/2021 12/18/2021 12/19/2021 11:34 AM CDT Rule Out COVID-19 02/24/2022 02/24/2022 02/25/2022 1:08 PM CDT Rule Out COVID-19 04/26/2022 04/26/2022 04/26/2022 6:47 AM CDT Rule Out COVID-19 05/17/2022 05/17/2022 05/17/2022 10:20 PM CARDIAC/VASCULAR SONOGRAPHER Rule Out COVID-19 06/09/2022 06/09/2022 06/09/2022 9:35 AM CARDIAC/VASCULAR SONOGRAPHER COVID-19 06/09/2022 06/09/2022 06/30/2022 11:4 1 PM CARDIAC/VASCULAR SONOGRAPHER Rule Out COVID-19 11/10/2022 11/10/2022 11/11/2022 12:17 PM CDT Rule Out COVID-19 03/07/2023 03/07/2023 03/07/2023 1:20 PM CDT Assessment Noted Time PHQ-9 Depression Total Score: 6 08/28/19 7:05 AM CARDIAC/VASCULAR SONOGRAPHER documented as of this encounter Care Teams Line And Frame Poler Relationship Specialty Start Date End Date Marija Edgar APRN AGRICULTURAL EXTENSION AGENT [address] [place] [address] PCP - General Nurse Practitioner 04/30/20 04/14/23 Esha Grimm PA-C [address] [place] [phone] PCP - General Family Medicine 05/04/23 Lita Oseguera Personal Advocate & Liaison (PAL) 02/28/20 03/27/23 Rakesh Cid PA-C 83133 [facility] [place] [address] Assigned PCP 03/02/20 06/07/20 Chanelle Mccann APRN CNM [address] [place] [place] [address] 200 [place] [address] Assigned OBGYN Provider 05/02/2005/09 Lesley Moody CHW Community Health Worker 05/30/2005/12 Kyara De La Fuente, RN Specialty Singing Messenger Neurology 06/04/20 03/05/21 Marija Edgar APRN AGRICULTURAL EXTENSION AGENT [address] [facility] [place] [address] Assigned PCP 06/08/20 04/29/23 Mynor Broussard MD 6363 [facility] 500 [place] [address] Assigned Surgical Provider 06/01/20 11/28/21 Keisha Dotson MD [address] [place] [address] Assigned Neuroscience Provider 06/04/20 04/01/23 Mary Mejia Financial Resource Worker 08/07/20 08/21/20 Stacey Briones, [facility] Lead Singing Messenger Primary Care - CC 08/11/2012/30 Leslye Moody, [facility] Community Health Worker 08/11/2010/01 Jackie Mary Financial Resource Worker 09/02/20 10/06/20 Lita Oseguera Personal Advocate & Liaison (PAL) Family Medicine 09/10/20 09/21/20 Galo Burrell MD Assigned Heart and Vascular Provider 10/05/20 04/02/22 Cristina Wood Financial Resource Worker 10/07/20 10/14/20 Lesley Moody, [facility] Community Health Worker 10/23/2012/30 Meredith Bedoya Financial Resource Worker 10/23/20 11/23/20 Cristina Wood Financial Resource Worker 02/09/21 02/09/21 Diana Desir, [facility]3 [place], [place] 067026 Pharmacist Pharmacist 04/17/21 Rain Galaviz PA-C [address] [place] [address] [address] [place] [place], [place] [phone] Physician Endoscopy Technician Dermatology 04/28/21 Summer Lara MD [address] [place] [address] Assigned OBGYN Provider 05/10/2105/23 Summer Lara MD [address] [place] [address] Assigned OBGYN Provider 05/31/21 2 Summer Lara MD [address] [place], [place] 241884 Assigned OBGYN Provider 05/24/2105/30 Tavia Wyatt MD [address] [place] [address] Dermatology 07/14/21 Johnny Murillo MD [address] [place], [place] 10[address] Assigned Musculoskeletal Provider 08/30/21 03/17/22 Erica Farrell APRN AGRICULTURAL EXTENSION AGENT 6405 [facility] [address] [place], [place] 0[address] Nurse Practitioner Cardiovascular Disease 09/09/21 Teresita Bean [facility] [address] [place] [address] Pharmacist Pharmacist 09/24/21 09/29/21 Tavia Wyatt MD Assigned Surgical Provider 11/29/21 05/07/22 [facility] [address] [place] [address] Assigned MTM Pharmacist 01/02/22 Rich Barrett MD [address] 912605 Physician Ophthalmology 01/21/22 Neil Kent MD [address] [place] [address] Dermatology 02/24/22 Roney Story DPM [address] [facility] [address] [place] [address] Assigned Musculoskeletal Provider 03/20/22 08/13/22 Erica Farrell APRN AGRICULTURAL EXTENSION AGENT 1700 [place] [address] Assigned Heart and Vascular Provider 04/03/22 04/16/22 Diana Desir, [facility] 3033 [place] [address] Assigned MTM Pharmacist 04/07/22 Jel[address] David [place] [address] [facility] [place] [address] Assigned Surgical Provider 05/08/22 10/08/22 Galo Burrell MD Assigned Heart and Vascular Provider 04/17/22 06/11/22 Livan Sharif MD [address], [place] [address] [place] [address] Cardiovascular Disease 05/14/22 Livan Sharif MD [address], [place] [address] [place] 388275 Assigned Heart and Vascular Provider 06/12/22 07/23/22 Catherine Cm MD [address] [place] [address] [place] [address] Cardiovascular Disease 07/21/22 Valery Veronica, PAUcheC [address] [place] [address] Physician Endoscopy Technician Dermatology 07/21/22 Catherine Cm MD [address] [place] 300405 Assigned Heart and Vascular Provider 07/24/22 11/05/22 Johnny Murillo MD [address] [place] [address] Assigned Musculoskeletal Provider 08/14/22 10/08/22 Brea Quinn APRN AGRICULTURAL EXTENSION AGENT [address] [place] [address] Nurse Practitioner Dermatology 09/21/22 Brea Quinn APRN AGRICULTURAL EXTENSION AGENT [address] [place] [address] Assigned Surgical Provider 10/09/22 [place] [address] [address] Assigned Musculoskeletal Provider 10/09/22 Livan Sharif MD [address], [address] [address] Assigned Heart and Vascular Provider 11/06/22 11/12/22 Catherine Cm MD [address] [place] [address] Assigned Heart and Vascular Provider 11/13/22 05/27/23 Sydnie Martinez RN Personal Advocate & Liaison (PAL) Family Medicine 03/28/23 07/31/23 Alfonso Renteria MD 5775 [facility] [address] 200 [place] [address] Assigned Neuroscience Provider 04/02/23 Cheng Todd PA-C [address] [place], [place] 68419124 Assigned PCP 04/30/23 07/15/23 Radha Lomeli APRN AGRICULTURAL EXTENSION AGENT 6405 [facility] [address] [place] [address] Assigned Heart and Vascular Provider 05/28/23 Jelena David OD [address] [facility] [place] [address] Ophthalmology 06/15/23 Pao Joseph RN Personal Advocate & Liaison (PAL) Nurse 08/01/23 Esha Grimm PA-C [address] [place] [address] Assigned PCP 07/16/23 Valery Veronica PA-C [address] [place] [address] 983675 Physician Endoscopy Technician Dermatology 09/19/23 Rey Tay MD [address] [place] [address] Gastroenterology 09/20/23 Rocky Zepeda DO [address] [place] [place] [address] [phone] Physician Gastroenterology 09/20/23 Philip Dumont MD [address] [place] [address] 453875 Physician Ophthalmology 09/22/23 documented as of this encounter
--- OUTSIDE RECORDS SUMMARY | 2023-10-15 22:01 | XMS_ITS | Encounter Summary ---
Author Name Unknown Organization [facility] Address [address] [place] [address] Care Team Providers Care Conditioning Machine Operator Name Role Phone Rakesh Cid PA-C Unavailable + Rakesh Cid PA-C Primary Care Provider Lita Oseguera Unavailable Unavailable Rakesh Cid PA-C Unavailable + Isaura Lamar RN Unavailable Unavailable Lita Oseguera Unavailable Unavailable Marija Edgar APRN CASINO SLOT SUPERVISOR Primary Care Provider Chanelle Gutierrez APRN CNM Unavailab le Lesley Moody CHW Unavailable [phone] Kyara De La Fuente RN Unavailable [phone] Marija Edgar APRN CASINO SLOT SUPERVISOR Unavailable Unavail able Mynor Broussard MD Unavailable Keisha Dotson MD Unavailable [phone] Mary Mejia Unavailable Unavailable Stacey Briones DRIER ATTENDANT Unavailable [phone] Lesley Moody CHW Unavailable [phone] Mary Mejia Unavailable Unavailable Lita Oseguera Unavailable Unavailable Galo Burrell MD Unavailable Unavailable Cristina Wood Unavailable Lesley Moody [facility] Unavailable Meredith Bedoya Unavailable Unavailable Tere Woodie Unavailable Diana Desir [facility] Unavailable [phone] Rain Galaviz PA-C Unavailable Summer Lara MD Unavailable +[phone] Summer Lara MD Unavailable + [phone] Summer Lara MD Unavailable +[phone] Tavia Wyatt MD Unavailable Unavailable Johnny Murillo MD Unavailable +[phone] Erica Farrell APRN CASINO SLOT SUPERVISOR Unavailable + Teresita Bean [facility] Unavailable [phone] Tavia Wyatt MD Unavailable Unavailable Diana Desir [facility] Unavailable + [phone] Rich Barrett MD Unavailable [phone] Neil Kent MD Unavailable Roney Story DPM Unavailable [phone] Erica Farrell UNDERWRITER CASINO SLOT SUPERVISOR Unavailable + Diana Desir [facility] Unavailable [phone] Jelena David OD Unavailable Galo Burrell MD Unavailable Unavailable Livan Sharif MD Unavailable + Livan Sharif MD Unavailable + Catherine Cm MD Unavailable + Valery Veronica PA-C Unavailable [phone] Catherine Cm MD Unavailable + Johnny Murillo MD Unavailable [phone] Brea Quinn UNDERWRITER CASINO SLOT SUPERVISOR Unavailable Brea Quinn UNDERWRITER CASINO SLOT SUPERVISOR Unavailable Jose Francisco Johnson MD Unavailable Livan Sharif MD Unavailable Catherine Cm MD Unavailable + Sydnie Martinez RN Unavailable Unavailable Alfonso Renteria MD Unavailable Esha Grimm PA-C Primary Care Provider Cheng Todd PA-C Unavailable [phone] Radha Lomeli UNDERWRITER CASINO SLOT SUPERVISOR Unavailable [phone] Frankie Jelena Templetone OD Unavailable Pao Joseph RN Unavailable Unavailable Esha Grimm PA-C Unavailable [phone] Valery Veronica PA-C Unavailable [phone] Rey Tay MD Unavailable Rocky Zepeda DO Unavailable Philip Dumont MD Unavailable [phone] Reason for Visit * Reason Onset Date Comments Appointment 02/13/2020 Anxiety Encounter Details Date Type Department Care Team (Late st Contact Info) Description 02/13/2020 [facility] [place] [facility] [address] [address] Rakesh Cid, PA-C [address] [place] [address] Appointment (Anxiety) Social History Tobacco Use Types Packs/Day Years Used Date Smoking Tobacco: Former Cigarettes 1 Q uit: 12/07/2019 Other Smokeless Tobacco: Never Comments:Vaping Alcohol Use Standard Drinks/Week Comments Not Currently 0 (1 standard drink = 0.6 oz pur e alcohol) PHQ-2 Answer Date Recorded PHQ-2 Score 0 09/11/2019 Sex and Gender Information Value Date Recorded Sex Assigned at Female 03/02/2021 5:45 PM CDT Gender Identity Female 03/02/2021 5:45 PM CDT Sexual Orientation Straight 02/28/2020 12 :51 AM CDT documented as of this encounter Miscellaneous Notes * Telephone Encounter - Agatha Forrester RN - 02/15/2020 2:28 PM CDT mSellerhart message sent to patient to schedule a Virtual visit with Rakesh next week. Agatha Forrester RN * Telephone Encounter - Shahid Gusman RN - 02/14/2020 10:11 AM CDT Called patient left message to call back and speak with nurse Shahid Gusman RN * Telephone Encounter - Rakesh Cid PA-C - 02/13/2020 11:06 PM CDT We could see if she wants a virtual appointment with me sooner? Rakesh documented in this encounter Plan of Treatment Upcoming Encounters Date Type Department Care Team (Late st Contact Info) Description 10/25/2023 11:30 AM CDT Virtual Visit [facility] [address] [phone] Nelly [place], RD [address] [place] [address] 11/03/2023 8:00 AM CDT Office Visit [address] [phone] Valery Veronica PA-C [address] [place] [address] 11/29/2023 8:00 AM CDT Office Visit [facility] [address] [place] [phone] Esha Grimm PA-C [address] [place] [address] 01/02/2024 8:00 AM CDT Office Visit [facility] [address] [place] [phone] Lauren Claudio PA-C [address] [place], [place] [phone] Kelli Perez MD [address] [place] [address] [phone] documented as of this encounter Visit Diagnoses Not on filedocumented in this encounter Additional Health Concerns Infection Onset Date Last Indicated Resolved Time Rule Out COVID-19 07/30/2020 07/30/2020 07/30/2020 7:11 PM SUPPLY CHAIN BUSINESS ANALYST Rule Out COVID-19 08/30/2020 08/30/2020 08/30/2020 5:05 PM SUPPLY CHAIN BUSINESS ANALYST Rule Out COVID-19 09/24/2020 09/24/2020 09/24/2020 9:24 AM CDT Rule Out COVID-19 11/05/2020 11/05/2020 11/06/2020 1:09 PM CDT Rule Out COVID-19 05/11/2021 05/11/2021 05/13/2021 10:18 AM CDT Rule Out COVID-19 07/13/2021 07/13/2021 07/14/2021 3:04 PM SUPPLY CHAIN BUSINESS ANALYST Rule Out COVID-19 07/18/2021 07/18/2021 07/20/2021 1:56 PM SUPPLY CHAIN BUSINESS ANALYST COVID-19 07/18/2021 07/18/2021 08/08/2021 11:3 9 PM SUPPLY CHAIN BUSINESS ANALYST Rule Out COVID-19 12/18/2021 12/18/2021 12/19/2021 11:34 AM CDT Rule Out COVID-19 02/24/2022 02/24/2022 02/25/2022 1:08 PM CDT Rule Out COVID-19 04/26/2022 04/26/2022 04/26/2022 6:47 AM CDT Rule Out COVID-19 05/17/2022 05/17/2022 05/17/2022 10:20 PM SUPPLY CHAIN BUSINESS ANALYST Rule Out COVID-19 06/09/2022 06/09/2022 06/09/2022 9:35 AM SUPPLY CHAIN BUSINESS ANALYST COVID-19 06/09/2022 06/09/2022 06/30/2022 11:4 1 PM SUPPLY CHAIN BUSINESS ANALYST Rule Out COVID-19 11/10/2022 11/10/2022 11/11/2022 12:17 PM CDT Rule Out COVID-19 03/07/2023 03/07/2023 03/07/2023 1:20 PM CDT Assessment Noted Time PHQ-9 Depression Total Score: 1 09/11/19 20 1:42 PM SUPPLY CHAIN BUSINESS ANALYST documented as of this encounter Care Teams Conditioning Machine Operator Relationship Specialty Start Date End Date Rakesh Cid PA-C [address] [place] [address] PCP - General Physician Water Treatment Plant Engineer - Medical 05/14/19 04/29/20 Marija Edgar APRN CNP PCP - General Nurse Practitioner 04/30/20 04/14/23 Esha Grimm PA-C [address] [place] [phone] PCP - General Family Medicine 05/04/23 Rakesh Cid [place]-C [address] [facility] [address] Assigned PCP 05/06/19 03/01/20 Lita Oseguera Personal Advocate & Liaison (PAL) 02/28/20 03/27/23 Rakesh Cid PA-C [address] [place] [address] Assigned PCP 03/02/20 06/07/20 Isaura Lamar, RN Personal Advocate & Liaison (PAL) Family Practice 04/03/20 04/06/20 Lita Oseguera Personal Advocate & Liaison (PAL) 04/07/20 04/29/20 Chanelle Mccann APRN CNM [address] [address] [address] [place], [place] 115547 Assigned OBGYN Provider 05/02/2005/09 Lesley Moody, W Community Health Worker 05/30/2005/12 Kyara De La Fuente, RN Specialty Landfill Gas Plant Field Technician Neurology 06/04/20 03/05/21 Marija Edgar APRN CASINO SLOT SUPERVISOR Assigned PCP 06/08/20 04/29/23 Mynor Broussard MD [address] [facility] [address] [place] [address] Assigned Surgical Provider 06/01/20 11/28/21 Keisha Dotson MD [address] [place] [address] Assigned Neuroscience Provider 06/04/20 04/01/23 Mary Mejia Financial Resource Worker 08/07/20 08/21/20 Stacey Briones, DRIER ATTENDANT Lead Landfill Gas Plant Field Technician Primary Care - CC 08/11/2012/30 Lesley Moody, [facility] Community Health Worker 08/11/2010/01 Mary Mejia Financial Resource Worker 09/02/20 10/06/20 Lita Oseguera Personal Advocate & Liaison (PAL) Family Medicine 09/10/20 09/21/20 Galo Burrell MD Assigned Heart and Vascular Provider 10/05/20 04/02/22 Cristina Wood Financial Resource Worker 10/07/20 10/14/20 Lesley Moody, [facility] Community Health Worker 10/23/2012/30 Meredith Bedoya Financial Resource Worker 10/23/20 11/23/20 Cristina Wood Financial Resource Worker 02/09/21 02/09/21 Diana Desir, [facility] [address] [place], [place] [phone] Pharmacist Pharmacist 04/17/21 Rain Galaviz PA-C [address] [place] [address] [address] [place], [place] [phone] Physician Water Treatment Plant Engineer Dermatology 04/28/21 Summer Lara MD [address] [place] [address] [phone] Assigned OBGYN Provider 05/10/2105/23 Summer Lara MD [address] [place] [address] [phone] Assigned OBGYN Provider 05/31/21 2 Summer Lara MD [address] [place] [address] Assigned OBGYN Provider 05/24/2105/30 Tavia Wyatt MD [address] [place] [address] Dermatology 07/14/21 Johnny Murillo MD [address] [place] [address] Assigned Musculoskeletal Provider 08/30/21 03/17/22 Erica Farrell APRN CASINO SLOT SUPERVISOR [address] [facility] [address] [place] [address] Nurse Practitioner Cardiovascular Disease 09/09/21 Teresita Bean [facility] [address] [place] [phone] Pharmacist Pharmacist 09/24/21 09/29/21 Tavia Wyatt MD Assigned Surgical Provider 11/29/21 05/07/22 [facility] [address] [place] [address] Assigned MTM Pharmacist 01/02/22 Rich Barrett MD [address] [phone] Physician Ophthalmology 01/21/22 Neil Kent MD [address] [place] [address] [phone] Dermatology 02/24/22 Roney Story DPM [address] [facility] [address] [place] [address] Assigned Musculoskeletal Provider 03/20/22 08/13/22 Erica Farrell APRN CASINO SLOT SUPERVISOR [address] [place] [address] Assigned Heart and Vascular Provider 04/03/22 04/16/22 [facility] [address] [place] [address] Assigned MTM Pharmacist 04/07/22 Jeelna David OD [address] [place] [address] Assigned Surgical Provider 05/08/22 10/08/22 Galo Burrell MD Assigned Heart and Vascular Provider 04/17/22 06/11/22 Livan Sharif MD [address] [place] [address] Cardiovascular Disease 05/14/22 Livan Sharif MD [address] [place] [phone] Assigned Heart and Vascular Provider 06/12/22 07/23/22 Catherine Cm MD [address] [place] 988645 Cardiovascular Disease 07/21/22 Valery Veronica PA-C [address] [place], [place] 166[address] Physician Water Treatment Plant Engineer Dermatology 07/21/22 Catherine Cm MD [address] [facility] [place] 578155 Assigned Heart and Vascular Provider 07/24/22 11/05/22 Johnny Murillo MD [facility] [address] 136994 Assigned Musculoskeletal Provider 08/14/22 10/08/22 Brea Quinn APRN CASINO SLOT SUPERVISOR [address] [place] [address] [phone] Nurse Practitioner Dermatology 09/21/22 Brea Quinn APRN CASINO SLOT SUPERVISOR [address] [place] [address] [phone] Assigned Surgical Provider 10/09/22 [place] [address] [place] [address] 948117 Assigned Musculoskeletal Provider 10/09/22 Livan Sharif MD [address] [facility] [address] [place] 157515 Assigned Heart and Vascular Provider 11/06/22 11/12/22 Catherine Cm MD [address] [facility] [address] [place] 137385 Assigned Heart and Vascular Provider 11/13/22 05/27/23 Sydnie [place], RN Personal Advocate & Liaison (PAL) Family Medicine 03/28/23 07/31/23 Alfonso Renteria MD [address] [facility] [address] [place] [address] Assigned Neuroscience Provider 04/02/23 Cheng Todd PA-C [address] [place], [place] [phone] Assigned PCP 04/30/23 07/15/23 Radha Lomeli APRN CASINO SLOT SUPERVISOR [address] [place] [address] Assigned Heart and Vascular Provider 05/28/23 Jelena David OD [address] [place] [address] Ophthalmology 06/15/23 Pao Joseph, VJ Personal Advocate & Liaison (PAL) Nurse 08/01/23 Esha Grimm PA-C [address] [place] [phone] Assigned PCP 07/16/23 Valery Veronica PA-C [address] [place] [address] [phone] Physician Water Treatment Plant Engineer Dermatology 09/19/23 Rey Tay MD [address] [place], [place] 0[address]85 Gastroenterology 09/20/23 Rocky Zepeda DO [address] [place] [address] 016015 Physician Gastroenterology 09/20/23 Philip Dumont MD [address] [place] [address] [phone] Physician Ophthalmology 09/22/23 documented as of this encounter
[2023-10-15 22:05] LABS: Chloride* 105 mmol/L (96-114); Potassium* 3.8 mmol/L (3.6-5.1); Sodium* 138 mmol/L (135-149)
[2023-10-15 22:08] LABS: Anion Gap 8 mEq/L (7-15); Blood Urea Nitrogen* 13 mg/dL (5-24); Calcium* 9.5 mg/dL (8.4-10.6); Carbon Dioxide* 25 mmol/L (20-32); Creatinine* 0.7 mg/dL (0.5-1.5); Est. Creatinine Clearance* 117.01; Estimated Glomerular Filt Rate 125 ml/min; Glucose* 101 mg/dL (60-115)
[2023-10-15 22:11] LABS: D Dimer Quantitative* 0.31 ug/ml (0.00-0.50)
[2023-10-15 22:21] LABS: Troponin I* < 0.01 ng/mL (0.01-0.04)
== END 2023-10-15 22:43 | disposition home or self-care (01) ==
PROVIDERS: Emergency Provider Internal Medicine
DX: E86.0 Dehydration (principal)
CPT/HCPCS: 36415; 71045; 80048; 84484; 85025; 85379; 93005; 99283; 99284; 99285; J7030

== ENCOUNTER 2023-10-28 13:32 | Emergency (ER) | payer MEDICAID, SELFPAY ==
[2023-10-28 13:50] VITALS: BP 115/70; PULSE 80; RESP 18; TEMP 36.8; O2SAT 97; BMI 29.4
[2023-10-28 14:51] VITALS: BP 114/71; PULSE 79; RESP 16; O2SAT 97
--- NOTE | 2023-10-28 15:32 | ED_ITS ---
HPI - General Adult General Chief complaint: Chest Pain Stated complaint: sharp pain in left breast x 1 day, abd. pain Time Seen by Provider: 10/28/23 15:32 History of Present Illness HPI narrative: Pt c/o sharp left-sided chest pain that radiates to left arm and burning in epigastric region that started this morning. Hx SVT , EOE, hiatal hernia 23-year-old woman presenting to the emergency department with concern of chest pain. Has been having diarrhea but this is not new; a frequent condition. Tends to be gassy as well. No blood. History of eosinophilic esophagitis and has been treated for GERD since I believe she said the age of 9. Known to have a small hiatal hernia. I think she said 3 cm. Nausea but no vomiting today. New alarming symptom today was sharp pulses of pain persistent in the left breast area. Can not really reproduce it; maybe a little bit to palpation on the left upper outer breast/chest area. Does have a history of SVT and takes metoprolol. Has not noted herself to be having racing heart. Has had some tingling sensation then into her left arm as well and left neck. Temporarily yesterday and then today also felt like tongue was swollen but did not appear to be so in the mirror. She has had edema with her eosinophilic esophagitis. Burning across the upper abdomen and feels a pressure. Related Data Home Medications Medication Instructions Recorded Confirmed omeprazole 40 mg capsule,delayed 40 mg PO DAILY 04/28/22 10/28/23 release lorazepam 0.5 mg tablet 0.5 mg PO DAILY PRN anxiety 03/18/23 10/28/23 metoprolol succinate 25 mg 12.5 mg PO DAILY 10/15/23 10/28/23 tablet,extended release 24 hr paroxetine HCl 40 mg tablet 40 mg PO QAM 10/15/23 10/28/23 Previous Rx's Medication Instructions Recorded famotidine 40 mg tablet 40 mg PO DAILY #30 tabs 10/28/23 sucralfate 1 gram tablet (Carafate) 1 g PO BID #60 tabs 10/28/23 Allergies Allergy/AdvReac Type Severity Reaction Status Date / Time vancomycin Allergy Verified 10/28/23 13:54 Review of Systems Status of ROS: Reports: 6 or more systems reviewed and unremarkable except as noted in History and below PFSH PFSH Medical History SVT (supraventricular tachycardia) ?I47.10 - Supraventricular tachycardia, unspecified (ICD-10) Social History Smoking Status: Former smoker Do you use any of these nicotine containing products: None Second hand tobacco smoke exposure: No How often do you have a drink containing alcohol: monthly or less How often do you have six or more drinks on one occasion: Never AUDIT-C Alcohol total score: 1 Non-prescribed substance use: denies use service: No Exam Narrative: Exam Narrative: Pleasant. Breathing easily. Easily conversant. NAD. Skin is warm and dry. Some closed comedonal acne about her face. No rashes otherwise. Oropharynx is unremarkable. Neck is supple. Movement does not seem to reproduce symptoms into the arm. No pulsatile masses. No supraclavicular crepitus. Lungs are clear. No pain to reproduction about the periscapular area or the neck. Is wel l-perfused peripherally/good peripheral pulses in the upper extremities. Heart with regular rate and rhythm without murmur rub or gallop. Palpation of the chest wall does not clearly reproduce her discomfort. Maybe a little uncomfortable in the left upper outer breast. Abdomen is soft and uncomfortable to palpation across the upper abdomen more so in the epigastrium. No peritoneal signs. Const: Vital Signs, click to edit/add: Vital Signs - 24 hr 10/28/23 13:50 10/28/23 14:51 10/28/23 17:14 Temperature 98.2 F Pulse Rate 78 Pulse Rate [Pulse Oximeter] 80 79 Respiratory Rate 18 16 Blood Pressure 109/71 Blood Pressure [Ri ght Upper Arm] 115/70 114/71 Pulse Oximetry 97 97 98 Oxygen Delivery Me thod Room Air Room Air 10/28/23 17:15 10/28/23 17:30 10/28/23 17:45 Temperature Pulse Rate 78 74 71 Pulse Rate [Pulse Oximeter] Respiratory Rate Blood Pressure Blood Pressure [Ri ght Upper Arm] Pulse Oximetry 99 98 100 Oxygen Delivery Me thod Documenting provider has reviewed patient's vital signs: yes Course Vital Signs Vital signs: Initial Vital Signs Temperature 98.2 F 10/28/23 13:50 Temperature Source Temporal Artery Scan 10/28/23 13:50 Pulse Rate 80 10/28/23 13:50 Respiratory Rate 18 10/28/23 13:50 Blood Pressure 115/70 10/28/23 13:50 Blood Pressure Mean 85 10/28/23 13:50 Blood Pressure Position Sitting 10/28/23 13:50 Pulse Oximetry 97 10/28/23 13:50 Oxygen Delivery Method Room Air 10/28/23 13:50 Vital Signs Temperature 98.2 F 10/28/23 13:50 Pulse Rate 80 10/28/23 13:50 Respiratory Rate 18 10/28/23 13:50 Blood Pressure 115/70 10/28/23 13:50 Pulse Oximetry 97 10/28/23 13:50 Oxygen Delivery Method Room Air 10/28/23 13:50 Temperature 98.2 F 10/28/23 13:50 Pulse Rate 71 10/28/23 17:45 Respiratory Rate 16 10/28/23 14:51 Blood Pressure 109/71 10/28/23 17:14 Pulse Oximetry 100 10/28/23 17:45 Oxygen Delivery Method Room Air 10/28/23 14:51 Medications Administered Medications: Discontinued Medications Generic Name Dose Route Start Last Admin Trade Name Freq PRN Reason Stop Dose Admin Sodium Chloride 1,000 mls @ 1,000 mls/hr 10/28/23 16:25 10/28/23 17:19 0.9 % Sodium Chloride 1000 Ml IV 10/28/23 17:24 1,000 mls/hr .Q1H ONE Administration Lidocaine/Aluminum/Magnesium/Simeth 30 ml 10/28/23 16:25 10/28/23 16:49 Gi Cocktail (Visc Lido/Antacid) 30 Ml PO 10/28/23 16:26 30 ml ONCE ONE Administration Ondansetron HCl 4 mg 10/28/23 16:25 10/28/23 17:20 Ondansetron 2 Mg/Ml Inj IVP 10/28/23 16:26 Not Given ONCE ONE Medical Decision Making MDM Narrative Medical decision making narrative: Differential would include palpitations or, pulmonary embolus, pneumonia, ischemic cardiovascular disease, pain and inflammation associated with combination of GERD/hiatal hernia/eosinophilic esophagitis. Gallbladder disease/colic. Pancreatitis? Allergic flare? Symptoms are inconsistent another not clearly reproducible to clearly be costochondritis. Not really positional like pericarditis nor pleuritic. Chest wall strain? Monitor on hospital monitor. Treat symptoms focused on burning symptom and GERD. Pre treating with Zofran a GI cocktail. Was concerned about sensation in throat feeling like things were closing following this medication. Did settle some of the epigastric discomfort. L normal saline. Chest x-ray reviewed by me looks to be unremarkable for any acute abnormality. No pneumothorax. Normal cardiac silhouette. Labs are overall reassuring without evidence of inflammation in gallbladder or pancreas. Able to rest during time in the ER. Unclear etiology ultimately to these pulsatile sharp pains and the subjective tingliness. Referral from hiatal michelle [facility] or other inflammatory changes as noted above? See patient discharge plan further discussion Lab Data Lab results reviewed: Yes I reviewed the patient's lab results Labs: Lab Results 10/28/23 10/28/23 10/28/23 Range/Units 17:05 17:05 17:05 WBC 6.98 (4.50-11.00) K/uL RBC 4.83 (4.00-5.20) m/uL Hgb 12.8 (12.0-16.0) gm/dL Hct 39.2 (33.0-51.0) % MCV 81 (80-100) fL MCH 27 (26-34) pg MCHC 33 (32-36) gm/dL RDW Coeff of Naina 12.1 (11.5-15.5) % Plt Count 260 (140-440) K/uL Neut % (Auto) 53.8 (42.0-72.0) % Lymph % (Auto) 36.8 (20-44) % [place] % (Auto) 5.0 (0.0-11.0) % Eos % (Auto) 4.0 (0.0-7.0) % Baso % (Auto) 0.3 (0.0-3.0) % Neut # (Auto) 3.75 (1.7-7.0) K/uL Lymph # (Auto) 2.57 (0.90-2.90) K/uL [place] # (Auto) 0.30 (0.00-0.90) K/UL Eos # (Auto) 0.28 (0.00-0.50) K/uL Baso # (Auto) 0.02 (0.00-0.30) K/uL Abs Immat Gran (auto) 0.01 (0.00-0.30) K/uL Imm/Tot Granulo (auto) 0.1 % D-Dimer Quant (PE/DVT) 0.19 (0.00-0.50) ug/ml Sodium 141 (135-149) mmol/L Potassium 4.0 (3.6-5.1) mmol/L Chloride 110 (96-114) mmol/L Carbon Dioxide 26 (20-32) mmol/L Anion Gap 5 L (7-15) mEq/L BUN 15 (5-24) mg/dL Creatinine 0.7 (0.5-1.5) mg/dL Estimated Creat Clear 117.01 Estimated GFR 125 ml/min Glucose 79 (60-115) mg/dL Calcium 9.4 (8.4-10.6) mg/dL Total Bilirubin 0.7 Cancelled (0.1-1.5) mg/dL Direct Bilirubin 0.0 Cancelled (0.0-0.5) mg/dL AST 27 (12-35) U/L ALT (4-35) U/L Alkaline Phosphatase (40-150) U/L C-Reactive Protein (0.5-1.0) mg/dL Total Protein (6.0-8.3) g/dL Albumin (3.3-5.0) g/dL Lipase (23-300) U/L 10/28/23 10/28/23 10/28/23 Range/Units 17:05 17:05 17:05 WBC (4.50-11.00) K/uL RBC (4.00-5.20) m/uL Hgb (12.0-16.0) gm/dL Hct (33.0-51.0) % MCV (80-100) fL MCH (26-34) pg MCHC (32-36) gm/dL RDW Coeff of Naina (11.5-15.5) % Plt Count (140-440) K/uL Neut % (Auto) (42.0-72.0) % Lymph % (Auto) (20-44) % [place] % (Auto) (0.0-11.0) % Eos % (Auto) (0.0-7.0) % Baso % (Auto) (0.0-3.0) % Neut # (Auto) (1.7-7.0) K/uL Lymph # (Auto) (0.90-2.90) K/uL [place] # (Auto) (0.00-0.90) K/UL Eos # (Auto) (0.00-0.50) K/uL Baso # (Auto) (0.00-0.30) K/uL Abs Immat Gran (auto) (0.00-0.30) K/uL Imm/Tot Granulo (auto) % D-Dimer Quant (PE/DVT) (0.00-0.50) ug/ml Sodium (135-149) mmol/L Potassium (3.6-5.1) mmol/L Chloride (96-114) mmol/L Carbon Dioxide (20-32) mmol/L Anion Gap (7-15) mEq/L BUN (5-24) mg/dL Creatinine (0.5-1.5) mg/dL Estimated Creat Clear Estimated GFR ml/min Glucose (60-115) mg/dL Calcium (8.4-10.6) mg/dL Total Bilirubin (0.1-1.5) mg/dL Direct Bilirubin (0.0-0.5) mg/dL AST Cancelled (12-35) U/L ALT 29 Cancelled (4-35) U/L Alkaline Phosphatase 48 Cancelled (40-150) U/L C-Reactive Protein < 0.5 L (0.5-1.0) mg/dL Total Protein 8.7 H (6.0-8.3) g/dL Albumin (3.3-5.0) g/dL Lipase (23-300) U/L 10/28/23 10/28/23 10/28/23 Range/Units 17:05 17:05 17:05 WBC (4.50-11.00) K/uL RBC (4.00-5.20) m/uL Hgb (12.0-16.0) gm/dL Hct (33.0-51.0) % MCV (80-100) fL MCH (26-34) pg MCHC (32-36) gm/dL RDW Coeff of Naina (11.5-15.5) % Plt Count (140-440) K/uL Neut % (Auto) (42.0-72.0) % Lymph % (Auto) (20-44) % [place] % (Auto) (0.0-11.0) % Eos % (Auto) (0.0-7.0) % Baso % (Auto) (0.0-3.0) % Neut # (Auto) (1.7-7.0) K/uL Lymph # (Auto) (0.90-2.90) K/uL [place] # (Auto) (0.00-0.90) K/UL Eos # (Auto) (0.00-0.50) K/uL Baso # (Auto) (0.00-0.30) K/uL Abs Immat Gran (auto) (0.00-0.30) K/uL Imm/Tot Granulo (auto) % D-Dimer Quant (PE/DVT) (0.00-0.50) ug/ml Sodium (135-149) mmol/L Potassium (3.6-5.1) mmol/L Chloride (96-114) mmol/L Carbon Dioxide (20-32) mmol/L Anion Gap (7-15) mEq/L BUN (5-24) mg/dL Creatinine (0.5-1.5) mg/dL Estimated Creat Clear Estimated GFR ml/min Glucose (60-115) mg/dL Calcium (8.4-10.6) mg/dL Total Bilirubin (0.1-1.5) mg/dL Direct Bilirubin (0.0-0.5) mg/dL AST (12-35) U/L ALT (4-35) U/L Alkaline Phosphatase (40-150) U/L C-Reactive Protein (0.5-1.0) mg/dL Total Protein Cancelled (6.0-8.3) g/dL Albumin 4.8 Cancelled (3.3-5.0) g/dL Lipase 136 Cancelled (23-300) U/L ECG Data Attestation: I personally reviewed and interpreted this ECG as follows: (Normal sinus rhythm at a rate of 79) Discharge Plan Discharge Clinical Impression: Atypical chest pain, Chronic GERD, Abdominal pain Patient Disposition: Home, Self-Care Condition: Improved Additional Instructions: Can continue with liquid antacid/anti-gas for flares of discomfort. Might consider adding famotidine to your omeprazole. I am also prescribing Carafate; this is the medicine that coats your stomach. Please schedule follow-up with your primary care provider and/or gastroenterology. Return for persistent increased chest pain especially accompanied by shortness of breath. Prescriptions: New famotidine 40 mg tablet 40 mg PO DAILY Qty: 30 0RF sucralfate [Carafate] 1 gram tablet 1 g PO BID Qty: 60 2RF No Action lorazepam 0.5 mg tablet 0.5 mg PO DAILY PRN (Reason: anxiety) omeprazole 40 mg capsule,delayed release(DR/EC) 40 mg PO DAILY Patient Comments: TAKE ONE CAPSULE BY MOUTH EVERY DAY . metoprolol succinate 25 mg tablet extended release 24 hr 12.5 mg PO DAILY paroxetine HCl 40 mg tablet 40 mg PO QAM Follow Up/Referrals: Provider,Not a Local [Primary Care Provider] - Stand Alone Forms: [employer] Info Instructions
--- NOTE | 2023-10-28 16:25 | XR_ITS ---
Patient: NAHUN EDUARDO Facility:?[facility] Patient ID:?[id number] Site Patient ID:?[id number]. Site :?[id number] Study:?XRay-Chest PCXR-10/28/2023 4:56:40 PM Ordering Physician:LEIGH Final Report: Indication Left-sided chest pain Technique One view(s) of the chest Comparison Chest radiograph on October 15, 2023 Findings The cardiomediastinal silhouette and pulmonary vasculature are unremarkable. There is no focal airspace consolidation, pleural effusion, or pneumothorax. No displaced fractures. Impression No acute cardiopulmonary process. Dictated by Rocky Stokes MD @ 10/28/2023 5:20:35 PM Signed by:?Rocky Stokes MD @10/28/2023 5:20:35 PM (Electronic Signature)
--- OUTSIDE RECORDS SUMMARY | 2023-10-28 16:31 | XMS_ITS | Clinical Summary ---
Author Name Unknown Organization [facility] Address [address] [place] [id number] Phone Care Team Providers Care Outbound Sales Specialist Name Role Phone Unavailable Primary Care Provider Unavailabl e Allergies No known active allergies Medications Medication Sig Dispensed Refills Start Date End Date Status sertraline (ZOLOFT) 100 MG tablet Take 100 mg by mouth one time a day. Active naproxen (NAPROSYN) 500 MG tablet Take 500 mg by mouth two times a day as needed for Pain. Take with food. Active Social History Tobacco Use Types Packs/Day [...]
--- OUTSIDE RECORDS SUMMARY | 2023-10-28 16:31 | XMS_ITS | Clinical Summary ---
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 Temperature 37.1 ??C (98.8 ??F) 11/01/2017 5:26 PM CD T Respiratory Rate 16 11/01/2017 5:26 PM CDT Oxygen Saturation 96% 11/01/2017 5:26 PM CDT Inhaled Oxygen Concentration - - Weight 89.3 kg (196 lb 14.4 oz) 019 11: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 PCP - General 08/12/17
--- OUTSIDE RECORDS SUMMARY | 2023-10-28 16:32 | XMS_ITS | Clinical Summary ---
Author Name Unknown Organization [facility] Address [address] [place] [address] Care Team Providers Care Sr Account Executive Name Role Phone DesirKendrickDiana T [facility] Unavailable Rain Galaviz-C Unavailable Tavia Wyatt MD Unavailable Unavailable Erica Farrell APRN CHEMICAL SALES REPRESENTATIVE Unavailable Rich Barrett MD Unavailable Neil Kent MD Unavailable Diana Desir [facility] Unavailable [phone] Livan Sharif MD Unavailable Catherine Cm MD Unavailable + Valery Veronica PA-C Unavailable [phone] Brea Quinn GLUE MILL OPERATOR CHEMICAL SALES REPRESENTATIVE Unavailable Brea Quinn GLUE MILL OPERATOR CHEMICAL SALES REPRESENTATIVE Unavailable Jose Francisco Johnson MD Unavailable Alfonso Renteria MD Unavailable + [phone] Esha Grimm PA-C Primary Care Provider [phone] Radha Lomeli GLUE MILL OPERATOR CHEMICAL SALES REPRESENTATIVE Unavailable [phone] Jelena David OD Unavailable Pao Joseph RN Unavailable Unavailable Wicho Grimmlincoln Medina PA-C Unavailable [phone] JeremíasValery PA-C Unavailable [phone] Tyshawn Sprague MD Unavailable ZepedaRocky woodard Unavailable Philip Dumont MD Unavailable Allergies Active Allergy Reactions Criticality Noted Date Comments Vancomycin 04/26/2022 Medications Medication Sig Dispensed Refills Start Date End Date Status triamcinolone (KENALOG) 0.1 % external ointmentIndicati ons:Psoriasis Apply topically 2 times daily To psoriasis on body or arms/legs until healed then stop 80 g 2 10/01/2022 Active tacrolimus (PROTOPIC) 0.1 % external ointmentIndicati ons:Psoriasis Apply thin layer to psoriasis on thinner skin of face/genitals up to twice daily as needed. 60 g 11 10/01/2022 Active ketoconazole (NIZORAL) 2 % external shampooIndicatio ns:Psoriasis Use every 1-2 days when flared. Leave in few minutes before rinsing. Use twice weekly to prevent flares. 120 mL 11 10/01/2022 Active Lidocaine (LIDOCARE) 4 % PatchIndications :Acute left-sided low back pain with left-sided sciatica,Sacroil iac joint pain,Neck pain Place 1 patch onto the skin every 24 hours To prevent lidocaine toxicity, patient should be patch free for 12 hrs daily. 30 patch 1 10/11/2022 Active levonorgestrel (MIRENA) 52 MG (20 mcg/day) IUD by Intrauterine route once Active metoprolol succinate ER (TOPROL XL) 25 MG 24 hr tabletIndication s:Palpitations Take 0.5 tablets (12.5 mg) by mouth daily 45 tablet 1 05/25/2023 Active clindamycin (CLEOCIN T) 1 % external lotionIndication s:Acne, unspecified acne type Apply topically 2 times daily 60 mL 1 09/01/2023 Active tretinoin (RETIN-A) 0.05 % external creamIndications :Acne, unspecified acne type Apply topically at bedtime 45 g 09/01/2023 Active omeprazole (PRILOSEC) [address] capsuleIndicatio ns:Epigastric pain TAKE 1 CAPSULE BY MOUTH DAILY. 90 capsule 3 09/16/2023 Active PARoxetine (PAXIL) 40 MG tabletIndication s:Anxiety Take 1 tablet (40 mg) by mouth every morning 90 tablet 1 09/21/2023 Active Multiple Vitamin (MULTIVITAMIN ADULT PO) Active Digestive Enzymes (DIGESTIVE ENZYME PO) Active Probiotic Product (PROBIOTIC BLEND PO) Active LORazepam (ATIVAN) 0.5 MG tabletIndication s:Anxiety Take 1 tablet (0.5 mg) by mouth daily as needed for anxiety 30 tablet 10/27/2023 Active LORazepam (ATIVAN) 0.5 MG tabletIndication s:Anxiety Take 1 tablet (0.5 mg) by mouth daily as needed for anxiety 30 tablet 07/28/2023 4 Discontinued (Reorder (No AVS)) fluconazole (DIFLUCAN) 150 MG tabletIndication s:Vulvovaginal candidiasis Take 150 mg every 3 days for up to four doses 4 tablet 10/05/2023 4 amoxicillin-clav ulanate (AUGMENTIN) 875-125 MG tabletIndication s:Congestion of paranasal sinus Take 1 tablet by mouth 2 times daily for 10 days 20 tablet 10/10/2023 4 Active Problems Patient Care Coordination No te [...] available in ED consider consultation with ED Soap Tender. Relevant Medical History (at time Care Plan [...] to initiation of Care Plan: 11 Total [facility] Hospital Admissions in 12 months prior to initiation of Care Plan: 0 (she has technically had 2 admissions due to related issues with OBGYN) Expected home rescue plan: Metoprolol 12.5mg PRN PCP: Marija Edgar APRN CNP - [facility] - [facility] Specialists: Dr. Galo Burrell - Cardiology - [facility] Cesar Dotson - Neurology - [facility] Epilepsy Care Care Coordination: Has worked with Community Health Worker in past - ARACELIS Parker, Clinical Care Coordination - [facility] [place] [facility] [place]) - Follow up plan after an ED visit: Marija Edgar APRN CNP - [facility] - 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 KALYN (generalized anxiety disorder) 09/29/2020 Asthma 06/04/2020 Right ureteral stone 05/27/2020 Overview: Added automatically from request for surgery [id number] Left ureteral stone 05/27/2020 Overview: Added automatically from request for surgery [id number] Head ache 02/18/2020 Seizure 05/02/2019 Depressed 05/02/2019 Anxiety 05/02/2019 Tobacco abuse counseling 05/02/2019 Psoriasis 05/02/2019 Resolved Problems Problem Noted Date Diagnosed Date Resolved Date Neck pain 08/25/2022 08/17/2023 Lower back pain 08/25/2022 08/17/2023 Term 01/13/2021 10/11/2022 Encounter for triage in patient 12/09/2020 04/18/2023 Encounters Date Type Department Care Team Description 10/27/2023 4:00 PM CDT Office Visit [address] [address] See Claudio PA-C Epigastric pain (Primary Dx); Eosinophilic esophagitis; Hiatal hernia; Anxiety; Vitamin deficiency; Breast tenderness; Dizziness; Shakiness 10/27/2023 Telephone [facility] [address] [phone] 18 Rocky Zepeda DO 10/27/2023 Travel 10/26/2023 6:35 PM CDT Office Visit [facility] [place] [address] [place] [address] Pao Mullen APRN CNP 10/26/2023 Travel 10/26/2023 MyC Medical Advice [facility] [address] [phone] Wesley Powell 10/25/2023 11:30 AM CDT Virtual Visit [facility] [address] [phone] Nelly Mesa, RD Eosinophilic esophagitis (Primary Dx); Esophageal dysphagia 10/25/2023 MyC Medical Advice [facility] [address] [address] Nelly Mesa, DADA 10/25/2023 MyC Medical Advice [facility] [address] [phone] Ontjes, Wesley 10/25/2023 Telephone [facility] [address] [phone] None Procedure (EGD) 10/25/2023 Telephone [facility] [address] [address] Meredith Carrera PA-C Appointment 10/24/[address] [phone] Esha Grimm PA-C 10/24/2023 Telephone [facility] [address] [phone] Meredith Carrera PA-C Call Back 10/24/2023 MyC Medical Advice [facility] [address] [address] Kenneth Denson 10/21/2023 Telephone [facility] [address] [phone] Meredith Carrera PA-C Medication Question (omeprazole ) 10/21/[address] [phone] Esha Grimm PA-C Medication Update 10/21/2023 MyC Medical Advice [facility] [address] [address] Chikis Ariel 10/20/2023 MyC Medical Advice [address] [address] Esha Grimm PA-C Outreach 10/18/[address] [address] Esha Grimm PA-C Sinus Problem 10/17/[address] [address] Esha Grimm PA-C Appointment 10/13/2023 10:45 AM CDT Office Visit [facility] [address] [address] Meredith Carrera PA-C Eosinophilic esophagitis (Primary Dx); Esophageal dysphagia 10/13/2023 Travel 10/12/2023 Travel 10/10/2023 4:20 PM CDT Office Visit [facility] [address] [place] [address] Jaron Hager PA-C Congestion of paranasal sinus (Primary Dx) 10/10/2023 Travel 10/06/2023 Telephone [facility] [address] [address] Meredith Carrera PA-C Appointment (Reschedule of 10/06/23 appt) 10/06/2023 Travel 10/06/2023 PRE VISIT [facility] [address] [phone] Rocky Zepeda DO Previsit 10/05/2023 11:00 AM CDT Office Visit [facility] [address] [place] [phone] Amalia Zayas MD Vulvovaginal candidiasis (Primary Dx); Dysuria; Itching; Throat pain 10/05/2023 Travel 10/03/2023 Telephone [facility] [address] [phone] Rocky Zepeda DO Appointment (New Esophageal Pt) 09/29/2023 12:13 AM CDT - 09/29/2023 12:14 AM CDT Emergency [facility] Emergency Dept [address] [place] [phone] Discharge Disposition: Left Without Being Seen 09/29/2023 Telephone [facility] [address] [phone] Rocky Zepeda DO Call Back (Discuss being seen sooner (increased issues with swallowing) ) 09/28/2023 Travel 09/21/2023 4:00 PM CDT Virtual Visit [address] [phone] Diana Desir, [facility] Anxiety (Primary Dx); Moderate major depression (H) 09/21/2023 MyC Refill [address] [address] Esha Grimm PA-C Refill Request 09/20/2023 MyC Medical Advice [facility] [address] [phone] Jeffery Vieira, VJ 09/20/2023 Telephone [facility] [address] [phone] Jeffery Vieira, VJ 09/20/2023 MyC Medical Advice [address] [address] Esha Grimm PA-C 09/16/[address] [phone] Marija Edgar APRN CNP Medication Refill 09/12/2023 1:15 PM SCREEN TENDER HELPER - 09/12/2023 1:45 PM SCREEN TENDER HELPER Surgery [facility] [address] [phone] Tyshawn Sprague MD Esophagoscopy, gastroscopy, duodenoscopy (EGD), combined 09/12/2023 12:29 PM SCREEN TENDER HELPER - 09/12/2023 2:51 PM SCREEN TENDER HELPER Hospital Encounter [facility] [address] [phone] Tyshawn Sprague MD Discharge Disposition: Home or Self Care 09/08/2023 MyC Medical Advice [facility] [address] [phone] Marija Polanco RN 09/08/2023 MyC Medical Advice [facility] [address] [phone] Mary Kelsey 09/08/2023 Telephone [facility] [address] [phone] Mary Kelsey Procedure 09/07/2023 6:28 PM SCREEN TENDER HELPER - 09/07/2023 9:49 PM SCREEN TENDER HELPER Emergency [facility] Emergency Dept [address] [place] [address] Brea Meyer MD Chest pain, unspecified type Discharge Disposition: Home or Self Care 09/07/2023 Travel 09/06/2023 MyC Medical Advice [address] [phone] Esha rGimm PA-C 09/02/2023 MyC Medical Advice [address] [place] [address] Esha Grimm PA-C Outreach 09/02/[address] [address] Esha Grimm PA-C Prior Auth - Medication (tretinoin (RETIN-A) 0.05 % external cream - EPA DENIED) 09/01/2023 2:00 PM SCREEN TENDER HELPER Lab [facility] [address] [place] [phone] Breast tenderness; Screen for STD (sexually transmitted disease) 09/01/2023 11:30 AM SCREEN TENDER HELPER Virtual Visit [address] [phone] Esha Grimm PA-C Breast tenderness (Primary Dx); Anxiety; Acne, unspecified acne type; Vaginal discharge; Bacterial vaginosis; Screen for STD (sexually transmitted disease) 09/01/2023 MyC Medical Advice [address] [address] Diana Desir, [facility] 09/01/2023 Travel 08/31/2023 MyC Medical Advice [facility] [address] [place] [phone] Amalia Reyes RN 08/30/2023 Telephone [facility] Epilepsy [facility] [address], [address] [place] [address] Alfonso Renteria MD 08/29/2023 MyC Medical Advice [address] [phone] Esha Grimm PA-C 08/25/2023 MyC Medical Advice [address] [phone] Diana Desir, [facility] 08/25/2023 MyC Medical Advice [facility] [address] [place] [phone] Marija Polanco, VJ 08/25/2023 MyC Medical Advice [facility] [address] [phone] Marija Polanco, VJ 08/25/2023 Telephone [facility] [address] [place] [phone] Marija Polanco, VJ Pt. Information/instruc tion (EGD) 08/25/2023 Telephone [facility] Epilepsy [facility] [address] [place] [address] Alfonso Renteria MD 08/25/[address] [address] Esha Grimm PA-C Medication Question 08/25/2023 MyC Medical Advice [address] [phone] Diana Desir, [facility] 08/24/2023 4:00 PM SCREEN TENDER HELPER Virtual Visit [address] [phone] Diana Desir, [facility] Anxiety (Primary Dx); Moderate major depression (H) 08/11/2023 MyC Medical Advice [address] [phone] Pao Joseph RN 08/10/2023 10:30 AM SCREEN TENDER HELPER E-Visit [address] [phone] Esha Grimm PA-C Other (Entered automatically based on shira... 08/10/2023 MyC Medical Advice [address] [phone] Esha Grimm PA-C 08/10/[address] [address] Esha Grimm PA-C LAB REQUEST 08/04/[address] [phone] Esha Grimm PA-C Forms 08/04/2023 MyC Medical Advice [address] [phone] Diana Desir, [facility] 08/01/2023 9:00 AM SCREEN TENDER HELPER Ancillary Procedure [address] [phone] Esha Grimm PA-C Finger pain, right 08/01/2023 8:30 AM SCREEN TENDER HELPER Office Visit [address] [phone] Esha Grimm PA-C Finger pain, right (Primary Dx) 08/01/2023 MyC Medical Advice [address] [address] Esha Grimm PA-C 08/01/[address] [phone] Esha Grimm PA-C Call Back 08/01/2023 MyC Medical Advice [address] [phone] Esha Grimm PA-C Outreach 08/01/2023 Travel 07/29/2023 MyC Medical Advice [address] [phone] Pao Joseph RN from Last 3 Months Immunizations Name Administration [...] 11/11/2020,08/10/2011 TRIHIBIT (DTAP/HIB, <7y) 08/07/2001 Varicella 03/05/2013,10/17/2001 Family History Medical History Relation Comments Heart Disease Maternal Grandfather Brain Tumor Sister Glaucoma No family hx of Macular Degeneration No family hx of Relation Status Comments Maternal Grandfather Alive Sister Alive Social History Tobacco Use Types Packs/Day Years Used Date Smoking Tobacco: Former Cigarettes Q uit: 12/07/2019 Other Passive Smoke Exposure: [...] PHQ-2 Answer Date Recorded PHQ-2 Score 0 10/25/2023 [facility] [...] exercise at this level? 30 min 03/10/2023 Hunter Depression Scale Answer Date Recorded Hunter Depression Score 5 01/14/2021 Last EPDS Self [...] Sign Reading Time Taken Comments Blood Pressure 101/57 10/27/2023 3:46 PM CDT Pulse 65 10/27/2023 3:46 PM CDT Temperature 36.7 ??C (98 ??F) 10/27/2023 3:46 PM CDT Respiratory Rate 10 10/27/2023 3:46 PM CDT Oxygen Saturation 99% 10/27/2023 3:46 PM CDT Inhaled Oxygen Concentration - - Weight 82.9 kg (182 lb 12.8 oz) 10/27/2023 3:46 PM CDT Height 167.6 cm (5' 6) 10/27/2023 3:46 PM CDT Body Mass Index 29.5 10/27/2023 3:46 PM CDT Plan of Treatment Upcoming Encounters Date Type Department Care Team (Late st Contact Info) Description 11/01/2023 8:00 AM CDT Appointment [facility] [address] [place] [address] See Claudio PA-C [address] [place] [address] 11/03/2023 8:00 AM CDT Office Visit [address] [phone] Valery Veronica PA-C [address] [place] [address] 11/29/2023 8:00 AM CDT Office Visit [facility] [address] [place] [phone] Esha Grimm PA-C [address] [place] [phone] 12/19/2023 11:30 AM CDT Hospital Encounter [address] [phone] Rocky Zepeda DO [address] [place] [address] 12/19/2023 11:30 AM CDT - 12/19/2023 12:00 PM CDT Surgery [address] [phone] Rocky Zepeda DO [address] [place], [place] [address] Esophagoscopy, gastroscopy, duodenoscopy (EGD), combined 01/02/2024 8:00 AM CDT Office Visit [facility] [address] [place] [address] See Claudio, PABaldo [address] [place] [address] Kelli Perez MD [address] [place] [address] Scheduled Procedures Name Priority Associated Diagnoses Date/Ti me ESOPHAGOGASTRODUODENOSCOPY Eosinophilic esophagitis Esophageal dysphagia 12/19/2023 11:30 AM CDT Health Maintenance Due Date Last Done Comments ADVANCE CARE PLANNING 2000 ASTHMA ACTION PLAN 06/24/2021 06/24/2020, 06/24/2020 Pneumococcal Vaccine: Pediatrics (0 to 5 Years) and At-Risk Patients (6 to 64 Years) (2 of 2 - PCV) 09/22/2022 09/22/2021, 2000, 2000, Additional history exists COVID-19 Vaccine ( - 2022- season) 2023 INFLUENZA VACCINE (#1) 2023 , 03/27/2020, 05/02/2019, Additional history exists PHQ-9 12/20/2023 06/20/2023, 11/0 12/2022, 05/02/2023, Additional history exists ASTHMA CONTROL TEST 03/01/2024 09/01/2023, 03/10/2023, 08/27/2022, Additional history exists ANNUAL REVIEW OF HM ORDERS 03/10/202403/10, 09/22/2021, 06/24/2020 YEARLY PREVENTIVE VISIT 03/10/2024 03/10/20, 09/22/2021, 06/24/2020, Additional history exists CHLAMYDIA SCREENING 09/01/2024 09/01/2023, 04/18/2023, 04/18/2023, Additional history exists PAP 09/22/2024 09/22/2021 DTAP/TDAP/TD IMMUNIZATION (8 - Td or Tdap) 11/11/2030 11/11/2020, 08/10/2011, 11/23/2004, Additional history exists HEPATITIS B IMMUNIZATION Completed 002, 08/07/2001, 03/28/2001, Additional history exists IPV IMMUNIZATION Completed 11/23/2004, , 2000, Additional history exists HPV IMMUNIZATION Completed 03/01/2012, , 08/10/2011 MENINGITIS IMMUNIZATION Completed 05/16/2017, 08/10 HEPATITIS C SCREENING Completed 11/05/2019 DEPRESSION ACTION PLAN Completed 04/17/2021, 2020 HIV SCREENING Completed 09/01/2023, 03/2023, 12/16/2022, Additional history exists RSV MONOCLONAL ANTIBODY Aged Out No l onger eligible based on patient's age to complete this topic Procedures Procedure Name Priority Date/Time Associated Diagnosis Comments ERYTHROCYTE SEDIMENTATION RATE AUTO Routine 10/27/2023 4:33 PM CDT Epigastric pain Breast tenderness Dizziness Shakiness GROUP A STREPTOCOCCUS PCR THROAT SWAB Routine [...] SURGICAL PATHOLOGY EXAM Routine 09/12/2023 1:41 PM SCREEN TENDER HELPER ESOPHAGOGASTRODUODENOS COPY, WITH BIOPSY 09/12/2023 1:10 PM SCREEN TENDER HELPER Bloating Dysphagia, unspecified type UPPER GI ENDOSCOPY Routine 09/12/2023 1: 02 PM SCREEN TENDER HELPER TROPONIN T, HIGH SENSITIVITY STAT 09/07/2023 8:49 PM SCREEN TENDER HELPER CBC WITH PLATELETS & DIFFERENTIAL STAT 09/07/2023 6:59 PM SCREEN TENDER HELPER EXTRA PURPLE TOP TUBE STAT 09/07/2023 6:59 PM SCREEN TENDER HELPER EXTRA RED TOP TUBE STAT 09/07/2023 6: 59 PM SCREEN TENDER HELPER CBC WITH PLATELETS AND DIFFERENTIAL STAT 09/07/2023 6:59 PM SCREEN TENDER HELPER EXTRA TUBE STAT 09/07/2023 6:59 PM SCREEN TENDER HELPER TROPONIN T, HIGH SENSITIVITY STAT 09/07/2023 6:59 PM SCREEN TENDER HELPER BASIC METABOLIC PANEL STAT 09/07/2023 6:59 PM SCREEN TENDER HELPER EKG 12-LEAD, TRACING ONLY STAT 09/07/2023 6:14 PM SCREEN TENDER HELPER CHLAMYDIA TRACHOMATIS/NEISSERIA GONORRHOEAE BY PCR Routine 09/01/2023 2:31 PM SCREEN TENDER HELPER Screen for STD (sexually transmitted disease) WET PREPARATION Routine 09/01/2023 2:31 PM SCREEN TENDER HELPER Vaginal discharge Screen for STD (sexually transmitted disease) TESTOSTERONE FREE AND TOTAL Routine 09/01/2023 2:25 PM SCREEN TENDER HELPER Breast tenderness HCG QUALITATIVE Routine 09/01/2023 2:25 PM SCREEN TENDER HELPER Breast tenderness TESTOSTERONE FREE AND TOTAL Routine 09/01/2023 2:25 PM SCREEN TENDER HELPER Breast tenderness SEX HORMONE BINDING GLOBULIN Routine 09/01/2023 2:25 PM SCREEN TENDER HELPER Breast tenderness TREPONEMA ABS W REFLEX TO RPR AND TITER Routine 09/01/2023 2:25 PM SCREEN TENDER HELPER Screen for STD (sexually transmitted disease) HIV ANTIGEN ANTIBODY COMBO Routine 09/01/2023 2:25 PM SCREEN TENDER HELPER Screen for STD (sexually transmitted disease) PROGESTERONE Routine 09/01/2023 2:25 PM SCREEN TENDER HELPER Breast tenderness ESTRADIOL Routine 09/01/2023 2:25 PM SCREEN TENDER HELPER Breast tenderness PROLACTIN Routine 09/01/2023 2:25 PM SCREEN TENDER HELPER Breast tenderness LUTEINIZING HORMONE Routine 09/01/2023 2 :25 PM SCREEN TENDER HELPER Breast tenderness FOLLICLE STIMULATING HORMONE Routine 09/01/2023 2:25 PM SCREEN TENDER HELPER Breast tenderness XR HAND RIGHT G/E 3 VIEWS Routine 08/01/2023 9:04 AM SCREEN TENDER HELPER Finger pain, right GYNECOLOGIC CYTOLOGY Routine 09/22/2021 3:14 PM CDT Encounter for screening for cervical cancer ASTHMA ACTION PLAN Routine 06/24/2020 3: 56 PM SCREEN TENDER HELPER HEPATITIS C ANTIBODY Routine 11/05/2019 2:08 PM CDT Screen for STD (sexually transmitted disease) from Last 3 Months or Most Recently Relevant to Health Maintenance Results * ESR: Erythrocyte sedimentation rate (10/27/2023 4:33 PM CDT) Erythrocyte Sedimentation Rate 8 0 - 20 mm/hr 10/27/2023 4:44 PM CDT CR LABORATORY Blood BLOOD SPECIMEN / Unknown Venipuncture / Unknown 10/27/2023 4:33 PM CDT 10/27/2023 4:33 PM CDT See Claudio PA-C LAB - BLOOD ORDERA BLES CR LABORATORY [facility] [place] [facility] [address] [facility] (no room number, 1st floor of [facility]) [place] [address], [place] [phone] * Streptococcus A Rapid Screen w/Reflex to PCR - Clinic Collect (10/05/2023 11:41 AM CDT) Group A Strep antigen Negative Negative 10/05/2023 12:07 PM CDT LABORATORY Swab STRUCTURE OF ANTERIOR PORTION OF NECK / Unknown Non-blood Collection / Unknown 10/05/2023 11:41 AM CDT 10/05/2023 11:59 AM CDT Amalia Zayas MD LAB - MICRO GENERAL ORDERABLES Performing Organization Address City/[facility]/ZIP Co de Phone Number [facility] [address] [facility] (no room number, 1st floor of clinic) [place] [address], [facility] [phone] * Group A Streptococcus PCR Throat Swab [...] Xpress Strep A test, performed on the [employer]?? [employer], is a rapid, qualitative in vitro [...] - MICRO GENERAL ORDERABLES [facility] Inf. Diseases Diag. Lab [address] [facility], [address] [place] [address], [facility] * (ABNORMAL) UA Macroscopic with reflex to Microscopic and Culture - Clinic Collect (10/05/2023 11:41AM CDT) Color Urine Yellow Colorless, Straw, Light Yellow, Yellow 10/05/2023 11:52 AM CDT LABORATORY Appearance Urine Clear Clear 10/05/19 11:52 AM CDT [facility] LAB[facility] Glucose Urine Negative Negative mg/dL 10/05/2023 11:52 AM CDT [facility] Bilirubin Urine Negative Negative 11:52 AM CDT [facility] Ketones Urine Negative Negative mg/dL 10/05/2023 11:52 AM CDT [facility] Specific [place] Urine 1.010 1.003 - 1.035 10/05/2023 11:52 AM CDT LABORATORY Blood Urine Trace(A) Negative 10/05/2023 11:52 [...] MD LAB - URINE ORDERABL ES LABORATORY [facility] [address] [facility] (no room number, 1st floor of clinic) [place] [address], [facility] [phone] * (ABNORMAL) Wet prep - lab collect (10/05/2023 11:41 AM CDT) Only the most recent of2 resultswithin the time period is included. Trichomonas Absent Absent REINA 10/05/2023 11:53 AM CDT [facility] LAB[facility] Yeast Present(A) Absent REINA 10/05/2023 11:53 AM CDT [facility] Clue Cells Absent Absent REINA 10/05/2023 11:53 AM CDT [facility] WBCs/high power field 2+(A) None REINA 10/05/2023 11:53 AM CDT [facility] Swab VAGINAL STRUCTURE / Unknown Non-blood Collection / Unknown 10/05/2023 11:41 AM CDT 10/05/2023 11:53 AM CDT Amalia Zayas MD LAB - MICRO GENERAL ORDERABLES LABORATORY [facility] Lab [address] [facility] Lab (no room number, 1st floor of [facility]) [place] [address], [facility] [phone] * (ABNORMAL) Urine Microscopic Exam (10/05/2023 11:41 [...] LAB - URINE ORDERABL ES [facility] LAB[facility] Lab [address] [facility] Lab (no room number, 1st floor of [facility]) [place] [address], [facility] [phone] * Urine Culture (10/05/2023 11:41 AM CDT) Culture <10,000 CFU/mL Mixture of Urogenital Darlene 10/06/2023 11:51 AM CDT [facility] Urine URINE SPECIMEN OBTAINED BY CLEAN CATCH PROCEDURE / Unknown Non-blood Collection / Unknown 10/05/2023 11:41 AM CDT 10/05/2023 11:52 AM CDT Amalia Zayas MD LAB - MICRO GENERAL ORDERABLES [facility]ORAT[facility] Inf. Diseases Diag. Lab [address] [facility], [address] [place] [id number] * Surgical Pathology Exam (09/12/2023 1:41 PM SCREEN TENDER HELPER) Case Report Surgical Pathology Report ? Case: [id number] ? Authorizing Provider: ??Tyshawn Sprague MD ?Collected: ? 09/12/2023 01:41 PM ? Ordering Location: ? [facility] ?Received: ?09/12/2023 03:09 PM ? [facility] ? Pathologist: ? Lázaro Jordan, ? Specimens: ?? A) - Small Intestine, Duodenum, gastric evaluate for H. pylori ? B) - Esophagus, Distal, evaluate for eosinophilic esophagitis ? C) - Esophagus, Proximal, evaluate for eosinophilic esophagitis ? 09/14/2023 7:16 AM [facility] LABORATORY Final Diagnosis A(1). Stomach, biopsy: [...] for dysplasia or malignancy 09/14/2023 7:16 AM [facility] LABORATORY Comment Prominent intra-epithelial eosinophilia (approximately 40 eosinophils per high-power field in the distal esophagus, and 25 eosinophils per high-power field in the proximal esophagus) is identified. In the appropriate clinical and endoscopic setting, findings are compatible with eosinophilic esophagitis. 09/14/2023 7:16 AM [facility] LABORATORY Clinical Information Procedure: Esophagoscopy, gastroscopy, duodenoscopy (EGD), combined Pre-op Diagnosis: Bloating [R14.0] Dysphagia, unspecified type [R13.10] Post-op Diagnosis: R14.0 - Bloating [ICD-10-CM] R13.10 - Dysphagia, unspecified type [ICD-10-CM] 09/14/2023 7:16 AM [facility] LABORATORY Gross Description A(1). Small Intestine, [...] (Margret David Biopsy Tech) 09/14/2023 7:16 AM [facility] LABORATORY Microscopic Description Microscopic examination was performed. 09/14/2023 7:16 AM [facility] LABORATORY Performing Labs The technical component of this testing was completed at [facility] Laboratory 09/14/2023 7:16 AM [facility] LABORATORY Case Images 09/14/2023 7:16 AM [facility] LABORATORY Biopsy DUODENAL STRUCTURE / Unknown 09/12/2023 1:41 PM SCREEN TENDER HELPER 09/12/2023 3:09 PM SCREEN TENDER HELPER Specimen from unspecified body site obtained by biopsy (specimen) STRUCTURE OF LOWER THIRD OF ESOPHAGUS / Unknown 09/12/2023 1:42 PM SCREEN TENDER HELPER 09/12/2023 3:09 PM SCREEN TENDER HELPER Specimen from unspecified body site obtained by biopsy (specimen) STRUCTURE OF UPPER THIRD OF ESOPHAGUS / Unknown 09/12/2023 1:44 PM SCREEN TENDER HELPER 09/12/2023 3:09 PM SCREEN TENDER HELPER Tyshawn Sprague MD LAB - [facility]CH[facility] LABORATORY [facility] Acute Care Lab [address] [facility] Lab (1st floor, no room number) [place] [address], [facility] [phone] [facility] Lab [address] 1st floor, [address] [place] [address], [facility] [phone] * UPPER GI ENDOSCOPY (09/12/2023 1:02 PM SCREEN TENDER HELPER) Upper GI Endoscopy [facility] [address] [place] ___ Patient Name: Kim Johnson ?Procedure Date: 09/12/2023 1:02 PM ? Date of : 2000 ? Admit Type: Outpatient Age: 23 ? Room: [place] [address] Note Status: Finalized ?Attending MD: TYSHAWN SPRAGUE MD, Instrument Name: [id number] Gastroscope ___ Procedure: ?Upper GI endoscopy Indications: ?Follow-up of gastro-esophageal reflux disease, ?Unexplained chest pain Providers: ?TYSHWAN SPRAGUE MD, Jess Bucio RN Referring MD: [...] Procedure Code(s): ? --- Professional --- ? 78512, Esophagogastroduode noscopy, flexible, transoral; with biopsy, ? single or multiple Diagnosis Code(s): ? --- Professional --- ? K22.89, Other specified disease of esophagus ? K44.9, Diaphragmatic hernia without obstruction or gangrene ? K29.70, Gastritis, unspecified, without bleeding ? K21.9, Gastro-esophageal reflux disease without esophagitis ? R07.9, Chest pain, unspecified CPT copyright 2021 [employer]. All rights reserved. The codes documented in this report are preliminary and upon floor plan adjuster review may be revised to meet current [...] 1:36:53 PM RADIOLOGY RESULTS 09/12/2023 1:02 PM SCREEN TENDER HELPER See Claudio PA-C PROCEDURES RADIOLOGY RESULTS * Troponin T, High Sensitivity (now) (09/07/2023 8:49 PM SCREEN TENDER HELPER) Only the most recent of2 resultswithin the time period is included. Troponin T, High Sensitivity <6 <=14 ng/L 09/07/2023 9:23 PM SCREEN TENDER HELPER LABORATORY Comment: Either a High Sensitivity Troponin [...] Unknown Venipuncture / Unknown 09/07/2023 8:49 PM SCREEN TENDER HELPER 09/07/2023 8:53 PM SCREEN TENDER HELPER Brea Meyer MD LAB - BLOOD DONYA HERRERA [facility] Lab [address] Lab (1st floor, no room number) [place] [address], [facility] [phone] * Extra Purple Top Tube (09/07/2023 6:59 PM SCREEN TENDER HELPER) Hold Specimen [facility] 09/07/2023 8:07 PM SCREEN TENDER HELPER LABORATORY Blood STRUCTURE OF LEFT UPPER LIMB / Unknown Venipuncture / Unknown 09/07/2023 6:59 PM SCREEN TENDER HELPER 09/07/2023 7:05 PM SCREEN TENDER HELPER Brea Meyer MD LAB - BLOOD DONYA HERRERA [facility] Acute Care Lab [address] Lab (1st floor, no room number) [place] [address], [facility] [phone] * Extra Red Top Tube (09/07/2023 6:59 PM SCREEN TENDER HELPER) Hold Specimen [facility] 09/07/2023 8:07 PM SCREEN TENDER HELPER [facility] LABORATORY Blood STRUCTURE OF LEFT UPPER LIMB / Unknown Venipuncture / Unknown 09/07/2023 6:59 PM SCREEN TENDER HELPER 09/07/2023 7:05 PM SCREEN TENDER HELPER Brea Meyer MD LAB - BLOOD DONYA HERRERA [facility] LABORATORY [facility] Lab [address] Lab (1st floor, no room number) [place] [address], [facility] [phone] * (ABNORMAL) CBC with platelets and differential (09/07/2023 6:59 PM SCREEN TENDER HELPER) [facility] WBC Count 5.7 4.0 - 11.0 10e3/uL 09/07/2023 7:08 PM SCREEN TENDER HELPER [facility] LABORATORY RBC Count 5.11 3.80 - 5.20 10e6/uL 09/07/2023 7:08 PM SCREEN TENDER HELPER [facility] LAB[facility] Hemoglobin 13.4 11.7 - 15.7 g/dL 09/07/2023 7:08 PM SCREEN TENDER HELPER [facility] LAB[facility] Hematocrit 41.3 35.0 - 47.0 % 09/07/2023 7:08 PM SCREEN TENDER HELPER [facility] LAB[facility] MCV 81 78 - 100 fL 09/07/2023 7:08 PM SCREEN TENDER HELPER [facility] LAB[facility] MCH 26.2(L) 26.5 - 33.0 pg 09/07/2023 7:08 PM SCREEN TENDER HELPER [facility] LAB[facility]ATORY MCHC 32.4 31.5 - 36.5 g/dL 09/07/2023 7:08 PM SCREEN TENDER HELPER [facility] LAB[facility] RDW 12.6 10.0 - 15.0 % 09/07/2023 7:08 PM SCREEN TENDER HELPER [facility] LAB[facility]AT[facility] Platelet Count 233 150 - 450 10e3/uL 09/07/2023 7:08 PM SCREEN TENDER HELPER [facility] % Neutrophils 43 % 09/07/2023 7:08 PM SCREEN TENDER HELPER [facility] % Lymphocytes 45 % 09/07/2023 7:08 PM SCREEN TENDER HELPER [facility] % Monocytes 6 % 09/07/2023 7:08 PM SCREEN TENDER HELPER [facility] % Eosinophils 6 % 09/07/2023 7:08 PM SCREEN TENDER HELPER [facility] % Basophils 0 % 09/07/2023 7:08 PM SCREEN TENDER HELPER [facility] % Immature Granulocytes 0 % 09/07/2023 7:08 PM SCREEN TENDER HELPER [facility] LAB[facility]ATORY NRBCs per 100 WBC 0 <1 /100 024 7:08 PM SCREEN TENDER HELPER [facility] LAB[facility]ATORY Absolute Neutrophils 2.5 1.6 - 8.3 10e3/uL 09/07/2023 7:08 PM SCREEN TENDER HELPER [facility] LABORATORY Absolute Lymphocytes 2.5 0.8 - 5.3 10e3/uL 09/07/2023 7:08 PM SCREEN TENDER HELPER [facility] LABORAT[facility] Absolute Monocytes 0.3 0.0 - 1.3 10e3/uL 09/07/2023 7:08 PM SCREEN TENDER HELPER [facility] LABORAT[facility] Absolute Eosinophils 0.4 0.0 - 0.7 10e3/uL 09/07/2023 7:08 PM SCREEN TENDER HELPER [facility] LAB[facility]AT[facility] Absolute Basophils 0.0 0.0 - 0.2 10e3/uL 09/07/2023 7:08 PM SCREEN TENDER HELPER LABORATORY Absolute Immature Granulocytes 0.0 <=0.4 10e3/uL 09/07/2023 7:08 PM SCREEN TENDER HELPER LABORATORY Absolute NRBCs 0.0 10e3/uL 09/07/2023 7:08 PM SCREEN TENDER HELPER LABORATORY Blood STRUCTURE OF LEFT UPPER LIMB / Unknown Venipuncture / Unknown 09/07/2023 6:59 PM SCREEN TENDER HELPER 09/07/2023 7:05 PM SCREEN TENDER HELPER Brea Meyer MD LAB - [facility]OD [facility] Lab [address] [facility] Lab (1st floor, no room number) [place] [address], [facility] [phone] * Basic metabolic panel (09/07/2023 6:59 PM SCREEN TENDER HELPER) [facility] Signature Sodium 138 135 - 145 mmol/L 09/07/2023 7:27 PM SCREEN TENDER HELPER LABORATORY Comment:Reference intervals for this test were updated on 04/05/2023 to more accurately reflect our healthy population. There may be differences in the flagging of prior results with similar values performed with this method. Interpretation of those prior results can be made in the context of the updated reference intervals. Potassium 3.7 3.4 - 5.3 mmol/L 09/07/2023 7:27 PM SCREEN TENDER HELPER LABORATORY Chloride 100 98 - 107 mmol/L 09/07/2023 7:27 PM SCREEN TENDER HELPER LABORATORY Carbon Dioxide (CO2) 26 22 - 29 mmol/L 09/07/2023 7:27 PM SCREEN TENDER HELPER LABORATORY Anion Gap 12 7 - 15 mmol/L 09/07/2023 7:27 PM SCREEN TENDER HELPER LABORATORY Urea Nitrogen 12.9 6.0 - 20.0 mg/dL 09/07/2023 7:27 PM SCREEN TENDER HELPER LABORATORY Creatinine 0.73 0.51 - 0.95 mg/dL 09/07/2023 7:27 PM SCREEN TENDER HELPER LABORATORY GFR Estimate >90 >60 mL/min/1. 73m2 09/07/2023 7:27 PM SCREEN TENDER HELPER LABORATORY Calcium 9.5 8.6 - 10.0 mg/dL 09/07/2023 7:27 PM SCREEN TENDER HELPER LABORATORY Glucose 90 70 - 99 mg/dL 09/07/2023 7:27 PM SCREEN TENDER HELPER LABORATORY Blood STRUCTURE OF LEFT UPPER LIMB / Unknown Venipuncture / Unknown 09/07/2023 6:59 PM SCREEN TENDER HELPER 09/07/2023 7:05 PM SCREEN TENDER HELPER Brea Meyer MD LAB [facility] Organization Address City/State/ZIP Co de Phone Number LABORATORY [facility] Lab [address] Lab (1st floor, no room number) [place] [address] [phone] * EKG 12 lead (09/07/2023 6:14 PM SCREEN TENDER HELPER) Systolic Blood Pressure mmHg RADIOLOGY RESULTS Diastolic Blood Pressure mmHg RADIOLOGY RESULTS Ventricular Rate 82 BPM RAD IOLOGY RESULTS Atrial Rate 82 BPM RADIOLOG Y RESULTS MS Interval 164 ms RADIOLOG Y RESULTS QRS Duration 86 ms RADIOLO GY RESULTS QT 382 ms RADIOLOGY RESULTS QTc 446 ms RADIOLOGY RESULTS P [place] 50 degrees RADIOLOGY RESULTS R AXIS 65 degrees RADIOLOGY RESULTS T [place] 47 degrees RADIOLOGY RESULTS Interpretation ECG Sinus rhythm Nonspecific ST abnormality Abnormal ECG When compared with ECG of 19-MAY-2023 09:49, No significant change was found Unconfirmed report - interpretation of this ECG is computer generated - see medical record for final interpretation Confirmed by - EMERGENCY ROOM, PHYSICIAN ([id number]), society editor NIC LESTER ([id number]) on 09/08/2023 6:52:35 AM RADIOLOGY RESULTS 09/07/2023 6:14 PM SCREEN TENDER HELPER 09/08/2023 6:52 AM SCREEN TENDER HELPER Brea Meyer MD ECG ORDERABLES RADIOLOGY RESULTS * Chlamydia & Gonorrhea by PCR, [facility] Collect (09/01/2023 2:31 PM SCREEN TENDER HELPER) Chlamydia Trachomatis Negative Negative 09/02/2023 12:32 PM SCREEN TENDER HELPER [facility] Comment: Negative for C. trachomatis rRNA by front line leader mediated amplification. A negative result by front line leader mediated amplification does not preclude the presence of infection because results are dependent on proper and adequate collection, absence of inhibitors and sufficient rRNA to be detected. Neisseria gonorrhoeae Negative Negative 09/02/2023 12:32 PM SCREEN TENDER HELPER [facility] Comment:Negative for N. gono rrhoeae rRNA by front line leader mediated amplification. A negative result by front line leader mediated amplification does not preclude the presence of C. trachomatis infection because results are dependent on proper and adequate collection, absence of inhibitors and sufficient rRNA to be detected. Swab VAGINAL STRUCTURE / Unknown Non-blood Collection / Unknown 09/01/2023 2:31 PM SCREEN TENDER HELPER 09/01/2023 2:32 PM SCREEN TENDER HELPER Esha Grimm PA-C LAB - MICRO GENERAL ORDERABLES [facility] LABORATORY [facility] Inf. Diseases Diag. Lab [address] [facility], [address] [place] [address], [facility] [phone] * Testosterone Free and Total (09/01/2023 2:25 PM SCREEN TENDER HELPER) Free Testosterone Calculated 0.18 ng/dL 09/04/2023 6:56 AM SCREEN TENDER HELPER SPECIAL DRUG/BGEN Comment: Adult Female Reference Range: 18-30 Years: 0.08-0.74 ng/dL 31-40 Years: 0.13-0.92 ng/dL 41-51 Years: 0.11-0.58 ng/dL Postmenopausal: 0.06-0.38 ng/dL Testosterone Total 10 8 - 60 ng/dL 09/04/2023 6:56 AM SCREEN TENDER HELPER UM SPECIAL DRUG/BGEN Blood BLOOD SPECIMEN / Unknown Venipuncture / Unknown 09/01/2023 2:25 PM SCREEN TENDER HELPER 09/01/2023 2:25 PM SCREEN TENDER HELPER Narrative SPECIAL DRUG/BGEN - 09/04/2023 6:56 AM SCREEN TENDER HELPER This test was developed and its performance characteristics determined by the [facility], ??Special Chemistry Laboratory. It has not been cleared or approved by the FDA. The laboratory is regulated under CLIA as qualified to perform high-complexity testing. This test is used for clinical purposes. It should not be regarded as investigational or for research. Esha Grimm PA-C LAB - BLOOD ORDERABL ES UM SPECIAL DRUG/BGEN Special Drug/BGEN [address] [facility], [address] [address], [facility] [phone] * Sex Hormone Binding Globulin (09/01/2023 2:25 PM SCREEN TENDER HELPER) Sex Hormone Binding Globulin 32 30 - 135 nmol/L 09/01/2023 5:45 PM SCREEN TENDER HELPER [facility] LAB[facility]AT[facility] Blood BLOOD SPECIMEN / Unknown Venipuncture / Unknown 09/01/2023 2:25 PM SCREEN TENDER HELPER 09/01/2023 2:25 PM SCREEN TENDER HELPER Esha Grimm PA-C LAB - BLOOD ORDERABL ES [facility] LABORATORY [facility] [place] [facility] [address] [facility], [address] [address], [facility] [phone] * HIV Antigen Antibody Combo (09/01/2023 2:25 PM SCREEN TENDER HELPER) HIV Antigen Antibody Combo Nonreactive Nonreactive 09/01/2023 5:50 PM SCREEN TENDER HELPER [facility] Comment:Negative HIV-1/-2 an tigen and antibody screening test results usually indicate the absence of HIV-1 and HIV-2 infection. However, such negative results do not rule-out acute HIV infection. If acute HIV-1 or HIV-2 infection is suspected, detection of HIV-1 or HIV-2 RNA is recommended. Blood BLOOD SPECIMEN / Unknown Venipuncture / Unknown 09/01/2023 2:25 PM SCREEN TENDER HELPER 09/01/2023 2:25 PM SCREEN TENDER HELPER Esha Grimm PA-C LAB - BLOOD ORDERABL ES U LABORATORY [facility] [place] [facility] [address] [facility], [address] [address], [facility] [phone] * Treponema Abs w Reflex to RPR and Titer (09/01/2023 2:25 PM SCREEN TENDER HELPER) Treponema Antibody Total Nonreactive Nonreactive 09/01/2023 6:05 PM SCREEN TENDER HELPER SPECIALTY CORE/PROT/EN DO Blood BLOOD SPECIMEN / Unknown Venipuncture / Unknown 09/01/2023 2:25 PM SCREEN TENDER HELPER 09/01/2023 2:25 PM SCREEN TENDER HELPER Esha Grimm PA-C LAB - BLOOD ORDERABL ES SPECIALTY CORE/PROT/ENDO Specialty Core/Prot/Endo [address] [facility], [address] [place] [address], [facility] [phone] * Prolactin (09/01/2023 2:25 PM SCREEN TENDER HELPER) Prolactin 6 5 - 23 ng/mL 09/01/2023 7:34 PM SCREEN TENDER HELPER LABORATORY Blood BLOOD SPECIMEN / Unknown Venipuncture / Unknown 09/01/2023 2:25 PM SCREEN TENDER HELPER 09/01/2023 2:25 PM SCREEN TENDER HELPER Esha Grimm PA-C LAB - BLOOD ORDERABL ES LABORATORY [facility] [place] [facility] [address] [facility], [address] [address], [facility] [phone] * Progesterone (09/01/2023 2:25 PM SCREEN TENDER HELPER) Progesterone 0.3 ng/mL 09/01/2023 7:34 PM SCREEN TENDER HELPER [facility] LAB[facility]AT[facility] Comment: Healthy Postmenopausal Women Postmenopause: [...] Unknown Venipuncture / Unknown 09/01/2023 2:25 PM SCREEN TENDER HELPER 09/01/2023 2:25 PM SCREEN TENDER HELPER Esha Grimm PA-C LAB - BLOOD ORDERABL ES [facility] LABORATORY [facility] [place] [facility] [address] [facility], [address] [address], [facility] [phone] * Luteinizing Hormone (09/01/2023 2:25 PM SCREEN TENDER HELPER) [facility] Signature Luteinizing Hormone 4.4 mIU/mL 09/01/2023 7:34 PM SCREEN TENDER HELPER [facility] LAB[facility] Comment: FEMALE: Age 0 - 6 mo: ??<0.1-8.2 mIU/mL 6 mo - 11 years: <0.1-1.3 mIU/mL 11 - 14 years: <0.1-10 mIU/mL 14 - 19 years: 0.4-25 mIU/mL 19 years and older: Follicular Phase: 2.4-12.6 mIU/mL Ovulation Phase: 14.0-95.6 mIU/mL Luteal Phase: 1.0-11.4 ??mIU/mL Postmenopausal: 7.7-58.5 mIU/mL Blood BLOOD SPECIMEN / Unknown Venipuncture / Unknown 09/01/2023 2:25 PM SCREEN TENDER HELPER 09/01/2023 2:25 PM SCREEN TENDER HELPER Esha Grimm PA-C LAB - BLOOD ORDERABL ES U LABORATORY [facility] [place] [facility] [address] [facility], [address] [address], [facility] [phone] * hCG Qualitative (09/01/2023 2:25 PM SCREEN TENDER HELPER) hCG Serum Qualitative Negative Negative REINA 09/01/2023 5:34 PM SCREEN TENDER HELPER [facility] LAB[facility]ATORY Comment:This test is for scr eening purposes. Results should be interpreted along with the clinical picture. Confirmation testing is available if warranted by ordering [id number], HCG Quantitative . Blood BLOOD SPECIMEN / Unknown Venipuncture / Unknown 09/01/2023 2:25 PM SCREEN TENDER HELPER 09/01/2023 2:25 PM SCREEN TENDER HELPER Esha Grimm PA-C LAB - BLOOD ORDERABL ES Performing Organization Address City/[facility]/ZIP Co de Phone Number U LABORATORY [facility] [place] [facility] [address] [facility], [address] [address], [facility] [phone] * Follicle stimulating hormone (09/01/2023 2:25 PM SCREEN TENDER HELPER) FSH 4.5 mIU/mL 09/01/2023 7:34 PM SCREEN TENDER HELPER [facility] LABORATORY Comment: 19 years and older: Follicular phase: 3.5-12.5 mIU/mL Ovulation phase: 4.7-21.5 mIU/mL Luteal phase: 1.7-7.7 mIU/mL Postmenopause: 25.8-134.8 mIU/mL Blood BLOOD SPECIMEN / Unknown Venipuncture / Unknown 09/01/2023 2:25 PM SCREEN TENDER HELPER 09/01/2023 2:25 PM SCREEN TENDER HELPER Esha Grimm PA-C LAB - BLOOD ORDERABL ES U LABORATORY [facility] [place] [facility] [address] [facility], [address] [place] [address], [facility] [phone] * Estradiol (09/01/2023 2:25 PM SCREEN TENDER HELPER) Estradiol 14 pg/mL 09/01/2023 7:34 PM SCREEN TENDER HELPER LABORATORY Comment: Healthy Men: 11.3-43.2 pg/mL Healthy Postmenopausal Women: Postmenopause: <5-138 pg/mL Healthy Women: 1st trimester: 154-3243 pg/mL 2nd trimester: 1561-56099 pg/mL 3rd trimester: 8525->67677 pg/mL Healthy Women Cycle Phase: Follicular: 30.9-90.4 pg/mL Ovulation: 60.4-533 pg/mL Luteal: 60.4-232 pg/mL Healthy Women Cycle Sub-Phase: Early Follicular: 20.5-62.8 pg/mL Intermediate Follicular: 26-79.8 pg/mL Late Follicular: 49.5-233 pg/mL Ovulation: 60.4-602 pg/mL Early Luteal: 51.1-179 pg/mL Intermediate Luteal: 66.5-305 pg/mL Late Luteal: 30.2-222 pg/mL Blood BLOOD SPECIMEN / Unknown Venipuncture / Unknown 09/01/2023 2:25 PM SCREEN TENDER HELPER 09/01/2023 2:25 PM SCREEN TENDER HELPER Esha Grimm PA-C LAB - BLOOD ORDERABL ES LABORATORY [facility] [place] [facility] [address] [facility], [address] [address], [facility] [phone] * XR Hand Right G/E 3 Views (08/01/2023 9:04 AM SCREEN TENDER HELPER) Anatomical Region Laterality Modality Hand, Wrist Right Computed Radiogr aphy Impressions 08/01/2023 10:59 AM SCREEN TENDER HELPER IMPRESSION: The right hand is negative for fracture or dislocation. No erosive changes. JASON ALVARADO MD SYSTEM ID: ??[id number] Narrative 08/01/2023 10:59 AM SCREEN TENDER HELPER XR HAND RIGHT G/E 3 VIEWS 08/01/2023 9:04 AM HISTORY: Finger pain, right COMPARISON: None. Procedure Note Jason Alvarado MD - 08/01/2023 XR HAND RIGHT G/E 3 VIEWS 08/01/2023 9:04 AM HISTORY: Finger pain, right COMPARISON: None. IMPRESSION: The right hand is negative for fracture or dislocation. No erosive changes. JASON ALVARADO MD SYSTEM ID: [id number] Esha Grimm PA-C IMG DIAGNOSTIC IMAGI NG ORDERABLES * Pap screen reflex to HPV if ASCUS - recommend age 25 - 29 (09/22/2021 3:14 PM CDT) Interpretation Negative for Intraepithelial Lesion or Malignancy (NILM) 09/25/2021 10:27 AM CDT SPECIALTY LABS Comment Papanicolaou Test Limitations: Cervical cytology is a screening test with limited sensitivity, and regular screening is critical for cancer prevention. Pap tests are primarily effective for the diagnosis/prevent ion of squamous cell carcinoma, not adenocarcinoma or other cancers. 09/25/2021 10:27 AM CDT SPECIAL[facility] LAB[facility] Specimen Adequacy Satisfactory for evaluation, endocervical/barahona sformation zone component absent 09/25/2021 10:27 AM CDT [facility] LAB[facility] Clinical Information none 09/25/2021 10:27 AM CDT [facility] Reflex Testing Yes if ASCUS 09/26/19 10:27 AM CDT SPECIAL[facility] LAB[facility] Previous Abnormal? No 09/25/2021 10:27 AM CDT SPECIAL[facility] LAB[facility] Performing Labs The technical component of this testing was completed at [facility] 09/25/2021 10:27 AM CDT SPECIAL[facility] LAB[facility] Brushing CERVIX UTERI STRUCTURE / Unknown 09/22/2021 3:14 PM CDT 09/22/2021 3:48 PM CDT Marija MCCORMICK UM SPECIALTY LABS UM Specialty Lab [address] [facility] [address], [address] [place] [address], [facility] [phone] * Hepatitis C antibody (11/05/2019 2:08 PM CDT) Hepatitis C Antibody Nonreactive NR^Nonre active 11/06/2019 9:42 AM CDT [facility] Comment: Assay performance characteristics have not been established for newborns, infants, and children Blood specimen (specimen) 11/05/2019 2:08 PM CDT 11/05/2019 2:13 PM CDT Chanelle TOMPKINS - BLOOD ORDERABLES [facility] [address] [place] [address] from Last 3 Months or Most Recently Relevant to Health Maintenance Advance Directives For more information, please contact: [phone] * Full Code (Latest Code Status on File) Date Activated Date Inactivated Comments 01/14/2021 7:36 AM 01/15/2021 6:05 PM All basic and advanced life-sustaining interventions are performed as appropriate Question Answer Comments Code status determined by: Discussion with patie nt/ legal decision maker Care Teams Sr Account Executive Relationship Specialty Start Date End Date Esha Grimm PA-C [address] [place] [phone] PCP - General Family Medicine 05/04/23 Diana Desir, [facility] [address] [place] [address] Pharmacist Pharmacist 04/17/21 Rain Galaviz PA-C [address] [place] [address] ENMA KNUTSON [address] Physician Crusher Loader Operator Dermatology 04/28/21 Tavia Wyatt MD [address] [place] [address] EN[place] KNUTSON [address] Dermatology 07/14/21 Erica Farrell APRN CHEMICAL SALES REPRESENTATIVE [address] [facility] [address] [place] [address] Nurse Practitioner Cardiovascular Disease 09/09/21 Rich Barrett MD [address] [facility] [address] [place], [place] [phone] Physician Ophthalmology 01/21/22 Neil Kent MD [address] [place], [place] 024[address] Dermatology 02/24/22 Diana Desir, [facility] [address] [place], [place] 747536 Assigned MTM Pharmacist 04/07/22 Livan Sharif MD [address] [facility] [address] [place], [place] 06[address] Cardiovascular Disease 05/14/22 Catherine Cm MD [address] [phone] Cardiovascular Disease 07/21/22 Valery Veronica, PA-C 909 [place], [place] [address]495 Physician Crusher Loader Operator Dermatology 07/21/22 Brea Quinn APRN CHEMICAL SALES REPRESENTATIVE [address] [place], [place] 9[address] Nurse Practitioner Dermatology 09/21/22 Brea Quinn APRN CHEMICAL SALES REPRESENTATIVE 6401 [facility] ENMA DOE 108952 Assigned Surgical Provider 10/09/22 [place] [address] [facility] 300 [place] [address] Assigned Musculoskeletal Provider 10/09/22 Alfonso Renteria MD [address] [facility] [address] [place], [place] 798926 Assigned Neuroscience Provider 04/02/23 Radha Lomeli, [place] CHEMICAL SALES REPRESENTATIVE [address] [facility] [address] [place] [id number] Assigned Heart and Vascular Provider 05/28/23 Jelena David [address] [facility] [address] Ophthalmology 06/15/23 Pao Joseph, VJ Personal Advocate & Liaison (PAL) Nurse 08/01/23 Esha Grimm PA-C [address] [place] [phone] Assigned PCP 07/16/23 Valery Veronica PA-C [address] [place] [address] 873135 Physician Crusher Loader Operator Dermatology 09/19/23 Tyshawn Sprague MD [address] [place] [address] 313045 Gastroenterology 09/20/23 Rocky Zepeda DO [address] [place] [address] 487775 Physician Gastroenterology 09/20/23 Philip Dumont MD [address] [place] [address] Physician Ophthalmology 09/22/23
--- OUTSIDE RECORDS SUMMARY | 2023-10-28 16:32 | XMS_ITS | Encounter Summary ---
Author Name Unknown Organization [facility] Address [address] [place] [address] Care Team Providers Care X Ray Developing Machine Operator Name Role Phone ThangKendrickDiana T [facility] Unavailable Rain Galaviz-C Unavailable Tavia Wyatt MD Unavailable Unavailable Erica Farrell APRN INSURANCE APPLICATION INVESTIGATOR Unavailable Rich Barrett MD Unavailable Neil Kent MD Unavailable Diana Desir [facility] Unavailable [phone] Livan Sharif MD Unavailable Catherine Cm MD Unavailable + Valery Veronica-C Unavailable [phone] Brea Quinn ENGINEERING TEST MECHANIC INSURANCE APPLICATION INVESTIGATOR Unavailable Brea Quinn ENGINEERING TEST MECHANIC INSURANCE APPLICATION INVESTIGATOR Unavailable [phone] Jose Francisco Johnson MD Unavailable Alfonso Renteria MD Unavailable + [phone] Esha Grimm PA-C Primary Care Provider [phone] Radha Lomeli ENGINEERING TEST MECHANIC INSURANCE APPLICATION INVESTIGATOR Unavailable FrankieJelena OD Unavailable Pao Joseph RN Unavailable Unavailable Esha Grimm PA-C Unavailable [phone] Valery Veronica PA-C Unavailable [phone] Rey Tay MD Unavailable ZepedaRocky Unavailable Philip Dumont MD Unavailable [phone] Encounter Details Date Type Department Care Team (Latest Contact Info) Description 10/27/2023 Travel Social History Tobacco Use Types Packs/Day [...] week 03/10/2023 How often do you attend [facility] or [facility] services? 1 to 4 [...] Answer Date Recorded PHQ-2 Score 0 10/25/2023 [facility] [place] [facility] - Occupational Stress [...] exercise at this level? 30 min 03/10/2023 [place] Depression Scale Answer Date Recorded [place] Depression Score 5 01/14/2021 Last EPDS Self [...] Info) Description 11/01/2023 8:00 AM CDT Appointment [facility] [address] [place] [address] Lauren Claudio PA-C [address] [place] [address] 11/03/2023 8:00 AM CDT Office Visit [address] [phone] Valery Veronica PA-C [address] [place] [address] 11/29/2023 8:00 AM CDT Office Visit [facility] [address] [place] [phone] Esha Grimm PA-C [address] [place] [address] 12/19/2023 11:30 AM CDT Hospital Encounter [address] [phone] Rocky Zepeda DO [address] [place] [address] 12/19/2023 11:30 AM CDT - 12/19/2023 12:00 PM CDT Surgery [address] [phone] Rocky Zepeda DO [address] [place] [address] Esophagoscopy, gastroscopy, duodenoscopy (EGD), combined 01/02/2024 8:00 AM CDT Office Visit [facility] [address] [place] [address] Lauren Cluadio PA-C [address] [place], [place] [phone] Kelli Perez MD [address] [facility] 106 [place], [place] [address] Scheduled Procedures Name Priority Associated Diagnoses Date/Ti ny ESOPHAGOGASTRODUODENOSCOPY Eosinophilic esophagitis Esophageal dysphagia 12/19/2023 11:30 AM CDT documented as of this encounter Visit Diagnoses Not on filedocumented in this encounter Additional Health Concerns Assessment Noted Time PHQ-9 Depression Total Score: 4 06/20/20 23 8:40 AM UNIVERSAL BANKER documented as of this encounter Care Teams X Ray Developing Machine Operator Relationship Specialty Start Date End Date Esha Grimm PA-C [address] [place] [phone] PCP - General Family Medicine 05/04/23 Diana Desir, [facility] [address] [place] [address] Pharmacist Pharmacist 04/17/21 Rain Galaviz PA-C [address] [place] [address] [address] EN[place] GARCIA [address] [facility] Dermatology 04/28/21 Tavia Wyatt MD [address] [place] [address] [address] [place] [address] Dermatology 07/14/21 Erica Farrell APRN INSURANCE APPLICATION INVESTIGATOR [address] [place] [address] Nurse Practitioner Cardiovascular Disease 09/09/21 Rich Barrett MD [address] [facility] 9A [place] [address] Physician Ophthalmology 01/21/22 Neil Kent MD 500 [place] [address] Dermatology 02/24/22 Diana Desir, [facility] [address] [place], [place] [address]16 Assigned [place] Pharmacist 04/07/22 Livan Sharif MD [address] [facility] [address] [place] [address] Cardiovascular Disease 05/14/22 Catherine Cm MD [address] [facility]00 [place] [address] Cardiovascular Disease 07/21/22 Valery Veronica, PAUcheC [address] [place], [place] 664475 [facility] Dermatology 07/21/22 Brea Quinn APRN INSURANCE APPLICATION INVESTIGATOR 500 [place], [place] [phone] Nurse Practitioner Dermatology 09/21/22 Brea Quinn APRN INSURANCE APPLICATION INVESTIGATOR [address] [place] [address] Assigned Surgical Provider 10/09/22 [place] [address] [facility] 300 [place] [address] Assigned Musculoskeletal Provider 10/09/22 Alfnoso Renteria MD [address] [facility] 200 [place], [place] [phone] Assigned Neuroscience Provider 04/02/23 Radha Lomeli APRN INSURANCE APPLICATION INVESTIGATOR [address] [facility] [address] [place] [address] Assigned Heart and Vascular Provider 05/28/23 Jelena David OD [address] [facility] [place] [address] Ophthalmology 06/15/23 Pao Joseph, VJ Personal Advocate & Liaison (PAL) Nurse 08/01/23 Esha Grimm PA-C [address] [place] [phone] Assigned PCP 07/16/23 Valery Veroncia PA-C [address] [place] [address] 107025 [facility] Dermatology 09/19/23 Rey Tay MD [address] [place], [place] [address] Gastroenterology 09/20/23 Rocky Zepeda DO [address] [place] [place] [phone] Physician Gastroenterology 09/20/23 Philip Dumont MD [address] [place] [address] [phone] Physician Ophthalmology 09/22/23 documented as of this encounter
--- OUTSIDE RECORDS SUMMARY | 2023-10-28 16:32 | XMS_ITS | Referral Summary ---
Author Name Unknown Organization [facility] Address [address] [place] [address] Care Team Providers Care Front Attendant Name Role Phone ThangKendrickDiana T [facility] Unavailable [phone] Rain Galaviz-C Unavailable Tavia Wyatt MD Unavailable Unavailable Erica Farrell APRN ULTRASOUND COORDINATOR Unavailable Rich Barrett MD Unavailable Neil Kent MD Unavailable Diana Desir [facility] Unavailable [phone] Livan Sharif MD Unavailable Catherine Cm MD Unavailable + Valery Veronica PA-C Unavailable [phone] Brea Quinn ROLLING 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 ULTRASOUND COORDINATOR Unavailable Brea Quinn ROLLING 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 ULTRASOUND COORDINATOR Unavailable Jose Francisco Johnson MD Unavailable Alfonso Renteria MD Unavailable + [phone] Esha Grimm PA-C Primary Care Provider [phone] Radha Lomeli ROLLING MACHINE OPERATOR ULTRASOUND COORDINATOR Unavailable [phone] FrankieJelena OD Unavailable Pao Joseph RN Unavailable Unavailable Esha Grimm PA-C Unavailable [phone] Valery Veronica PA-C Unavailable Tyshawn Sprague MD Unavailable Rocky Zepeda DO Unavailable Philip Dumont MD Unavailable Encounters Date Type Department Care Team Description 10/27/2023 Telephone [facility] Gastroenterology [address] [phone] Rocky Zepeda DO 10/27/2023 Travel 10/27/2023 4:00 PM CDT Office Visit [address] [phone] See Claudio, ROVERTO Epigastric pain (Primary Dx); Eosinophilic esophagitis; Hiatal hernia; Anxiety; Vitamin deficiency; Breast tenderness; Dizziness; Shakiness 10/26/2023 Travel 10/26/2023 6:35 PM CDT Office Visit [facility] [address] [phone] Pao Mullen, ROLLING MACHINE OPERATOR ULTRASOUND COORDINATOR 10/26/2023 MyC Medical Advice [facility] Clinic [address] [address] Wesley Powell 10/25/2023 MyC Medical Advice [facility] Gastroenterology [address] [address] Nelly Mesa, DADA 10/25/2023 MyC Medical Advice [facility] [address] [address] Wesley Powlel 10/25/2023 Telephone [facility] [address] [address] None Procedure (EGD) 10/25/2023 Telephone [facility] [address] [address] Meredith Carrera PA-C Appointment 10/25/2023 11:30 AM CDT Virtual Visit [facility] Gastroenterology [address] [address] Nelly Mesa, RD Eosinophilic esophagitis (Primary Dx); Esophageal dysphagia 10/24/[address] [phone] Esha Grimm PA-C 10/24/2023 Telephone [facility] [address] [address] Meredith Carrera PA-C Call Back 10/24/2023 MyC Medical Advice [facility] Gastroenterology [address] [address] Kenneth Denson 10/21/2023 Telephone [facility] [address] [address] Meredith Carrera PA-C Medication Question (omeprazole ) 10/21/[address] [phone] Esha Grimm PA-C Medication Update 10/21/2023 MyC Medical Advice [facility] Gastroenterology [address] [address] Chikis [place] [facility] 10/20/2023 MyC Medical Advice [address] [address] Esha Grimm PA-C Outreach 10/18/2023 Telephone [facility] [address] [place] [address] Esha Grimm PA-C Sinus Problem 10/17/2023 Telephone [facility] [address] [place] [address] Esha Grimm PA-C Appointment 10/13/2023 Travel 10/13/2023 10:45 AM CDT Office Visit [facility] [address] [address] Meredith Carrera PA-C Eosinophilic esophagitis (Primary Dx); Esophageal dysphagia 10/12/2023 Travel 10/10/2023 4:20 PM CDT Office Visit [facility] [address] [place] [address] Jaron Hager PA-C Congestion of paranasal sinus (Primary Dx) 10/10/2023 Travel 10/06/2023 Telephone [facility] G[facility]enterology [address] [phone] Meredith Carrera PA-C Appointment (Reschedule of 10/06/23 appt) 10/06/2023 Travel 10/06/2023 PRE VISIT [facility] Gastroenterology [address] [address] Rocky Zepeda DO Previsit 10/05/2023 Travel 10/05/2023 11:00 AM CDT Office Visit [facility] [address] [place] [address] Amalia Zayas MD Vulvovaginal candidiasis (Primary Dx); Dysuria; Itching; Throat pain 10/03/2023 Telephone [facility] [address] [address] Rocky Zepeda DO Appointment (New Esophageal Pt) 09/29/2023 Telephone [facility] [address] [phone] Rocky Zepeda DO Call Back (Discuss being seen sooner (increased issues with swallowing) ) 09/29/2023 12:13 AM CDT - 09/29/2023 12:14 AM CDT Emergency [facility] Emergency Dept [address] [place] [address] Discharge Disposition: Left Without Being Seen 09/28/2023 Travel 09/21/2023 MyC Refill [address] [address] Esha Grimm PA-C Refill Request 09/21/2023 4:00 PM CDT Virtual Visit [address] [address] Diana Desir, [facility] Anxiety (Primary Dx); Moderate major depression (H) 09/20/2023 MyC Medical Advice [facility] [address] [address] Jeffery Vieira, RN 09/20/2023 Telephone [facility] Gastroenterology [place] [id number] [address] Jeffery Vieira, RN 09/20/2023 MyC Medical Advice [address] [phone] Esha Grimm PA-C 09/16/[address] [address] Marija Edgar APRN ULTRASOUND COORDINATOR Medication Refill 09/12/2023 1:15 PM POWER SHEAR OPERATOR - 09/12/2023 1:45 PM POWER SHEAR OPERATOR Surgery [facility] Endoscopy [address] [phone] Tyshawn Sprague MD Esophagoscopy, gastroscopy, duodenoscopy (EGD), combined 09/12/2023 12:29 PM POWER SHEAR OPERATOR - 09/12/2023 2:51 PM POWER SHEAR OPERATOR Hospital Encounter [facility] Endoscopy [address] [place] [address] Tyshawn Sprague MD Discharge Disposition: Home or Self Care 09/08/2023 MyC Medical Advice [facility] [address] [address] Marija Polanco RN 09/08/2023 MyC Medical Advice [facility] [address] [address] Mary Kelsey 09/08/2023 Telephone [facility] Gastroenterology [address] [address] Mary Kelsey Procedure 09/07/2023 Travel 09/07/2023 6:28 PM POWER SHEAR OPERATOR - 09/07/2023 9:49 PM POWER SHEAR OPERATOR Emergency [facility] Emergency Dept [address] [place] [address] [phone] Brea Meyer MD Chest pain, unspecified type Discharge Disposition: Home or Self Care 09/06/2023 MyC Medical Advice [address] [address] Esha Grimm PA-C 09/02/2023 MyC Medical Advice [address] [address] Esha Grimm PA-C Outreach 09/02/[address] [address] Esha Grimm PA-C Prior Auth - Medication (tretinoin (RETIN-A) 0.05 % external cream - EPA DENIED) 09/01/2023 MyC Medical Advice [facility] [address] [place] [phone] Diana Desir, [facility] 09/01/2023 Travel 09/01/2023 2:00 PM POWER SHEAR OPERATOR Lab [facility] Laboratory [address] [place] [phone] Breast tenderness; Screen for STD (sexually transmitted disease) 09/01/2023 11:30 AM POWER SHEAR OPERATOR Virtual Visit [address] [address] Esha Grimm PA-C Breast tenderness (Primary Dx); Anxiety; Acne, unspecified acne type; Vaginal discharge; Bacterial vaginosis; Screen for STD (sexually transmitted disease) 08/31/2023 [facility]C [facility] [address] [facility] [address] [place] [phone] Amalia Reyes RN 08/30/2023 Telephone [facility] Epilepsy [facility] [address] [facility] [address] [facility], [address] [place] [address] Alfonso Renteria MD 08/29/2023 MyC Medical Advice [facility] [address] [place] [phone] Esha Grimm PA-C 08/25/2023 MyC Medical Advice [facility] [address] [place] [phone] Diana Desir, [facility] 08/25/2023 MyC Medical Advice [facility] [address] [address] Marija Polanco RN 08/25/2023 MyC Medical Advice [facility] [address] [place] [phone] Marija Polanco, JV 08/25/2023 Telephone [facility] Endoscopy [address] [place] [phone] Marija Polanco, VJ Pt. Information/instruc tion (EGD) 08/25/2023 Telephone M [facility] Epilepsy [facility] [address], [address] [place] [address] Alfonso Renteria MD 08/25/[address] [address] Esha Grimm PA-C Medication Question 08/25/2023 MyC Medical Advice [address] [address] Diana Desir, [facility] 08/24/2023 4:00 PM POWER SHEAR OPERATOR Virtual Visit [address] [address] Diana Desir, [facility] Anxiety (Primary Dx); Moderate major depression (H) 08/11/2023 [facility] [address] [address] Pao Joseph, VJ 08/10/2023 [facility] [address] [address] Esha Grimm PA-C 08/10/2023 10:30 AM POWER SHEAR OPERATOR E-Visit [address] [address] Esha Grimm PA-C Other (Entered automatically based on shira... 08/10/[address] [address] Esha Grimm PA-C LAB REQUEST 08/04/[address] [address] Esha Grimm PA-C Forms 08/04/2023 MyC Medical Advice [address] [address] Diana Desir, [facility] 08/01/2023 MyC Medical Advice [address] [address] Esha Grimm PA-C 08/01/[address] [address] Esha Grimm PA-C Call Back 08/01/2023 MyC Medical Advice [address] [address] Esha Grimm PA-C Outreach 08/01/2023 9:00 AM POWER SHEAR OPERATOR Ancillary Procedure [address] [address] Esha Grimm PA-C Finger pain, right 08/01/2023 Travel 08/01/2023 8:30 AM POWER SHEAR OPERATOR Office Visit [address] [address] Esha Grimm PA-C Finger pain, right (Primary Dx) 07/29/2023 MyC Medical Advice [address] [address] Pao Joseph RN from Last 3 Months Allergies Active Allergy [...] available in ED consider consultation with ED Technical Writing Lead/Mgr. Relevant Medical History (at time Care Plan initiated): Seizures (on 500mg Keppra daily), SVT (on 12.5mg metoprolol daily), Anxiety and Depression Past imaging: CT: 3 in the 12 months prior to initiation of care plan. MRI: 0 in the 12 months prior to initiation of care plan. ED Ultrasound: 8 in the 12 months prior to initiation of care plan. Total [facility] ED visits in 12 months prior to initiation of Care Plan: 11 Total [facility] Hospital Admissions in 12 months prior to initiation of Care Plan: 0 (she has technically had 2 admissions due to related issues with OBGYN) Expected home rescue plan: Metoprolol 12.5mg PRN PCP: Marija Edgar APRN CNP - [facility] Medicine - [facility] Specialists: Dr. Galo Burrell - Cardiology - [facility] Cesar Dotson - Neurology - [facility] Epilepsy Care Care Coordination: Has worked with Community Health Worker in past - ARACELIS Parker, Clinical Care Coordination - [facility] ([place], [place] and [place]) - Follow up plan after an ED visit: Marija Edgar APRN CNP - [facility] - [facility] Initiated: 2020 Problem Noted Date Diagnosed Date Paroxysmal supraventricular tachycardia (H24) SVT (supraventricular tachycardia) (H24) 022 Encounter for pharmacogenetic testing 04/17/2021 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 1 to 4 times [...] Answer Date Recorded PHQ-2 Score 0 10/25/2023 [facility] [...] exercise at this level? 30 min 03/10/2023 [place] Depression Scale Answer Date Recorded [place] Depression Score 5 01/14/2021 Last EPDS Self [...] Info) Description 11/01/2023 8:00 AM CDT Appointment [facility] [address] [place] [address] See Claudio PA-C [address] [place] [address] 11/03/2023 8:00 AM CDT Office Visit [address] [phone] Valery Veronica PA-C [address] [place] [address] 11/29/2023 8:00 AM CDT Office Visit [facility] [address] [place] [phone] Esha Grimm PA-C [address] [place] [phone] 12/19/2023 11:30 AM CDT Hospital Encounter [address] [phone] Rocky Zepeda DO [address] [place] [address] 12/19/2023 11:30 AM CDT - 12/19/2023 12:00 PM CDT Surgery [address] [phone] Rocky Zepeda DO [address] [place] [address] Esophagoscopy, gastroscopy, duodenoscopy (EGD), combined 01/02/2024 8:00 AM CDT Office Visit [facility] [address] [place] [address] See Claudio PA-C [address] [place], [place] [phone] Kelli Perez MD [address] [place], [place] [address]E [facility] [address] [place] [address] Scheduled Procedures Name Priority Associated Diagnoses Date/Ti me ESOPHAGOGASTRODUODENOSCOPY Eosinophilic esophagitis Esophageal dysphagia 12/19/2023 11:30 AM CDT Procedures Procedure Name Priority Date/Time Associated Diagnosis [...] SURGICAL PATHOLOGY EXAM Routine 09/12/2023 1:41 PM POWER SHEAR OPERATOR ESOPHAGOGASTRODUODENOS COPY, WITH BIOPSY 09/12/2023 1:10 PM POWER SHEAR OPERATOR Bloating Dysphagia, unspecified type UPPER GI ENDOSCOPY Routine 09/12/2023 1: 02 PM POWER SHEAR OPERATOR TROPONIN T, HIGH SENSITIVITY STAT 09/07/2023 8:49 PM POWER SHEAR OPERATOR CBC WITH PLATELETS & DIFFERENTIAL STAT 09/07/2023 6:59 PM POWER SHEAR OPERATOR EXTRA PURPLE TOP TUBE STAT 09/07/2023 6:59 PM POWER SHEAR OPERATOR EXTRA RED TOP TUBE STAT 09/07/2023 6: 59 PM POWER SHEAR OPERATOR CBC WITH PLATELETS AND DIFFERENTIAL STAT 09/07/2023 6:59 PM POWER SHEAR OPERATOR EXTRA TUBE STAT 09/07/2023 6:59 PM POWER SHEAR OPERATOR TROPONIN T, HIGH SENSITIVITY STAT 09/07/2023 6:59 PM POWER SHEAR OPERATOR BASIC METABOLIC PANEL STAT 09/07/2023 6:59 PM POWER SHEAR OPERATOR EKG 12-LEAD, TRACING ONLY STAT 09/07/2023 6:14 PM POWER SHEAR OPERATOR CHLAMYDIA TRACHOMATIS/NEISSERIA GONORRHOEAE BY PCR Routine 09/01/2023 2:31 PM POWER SHEAR OPERATOR Screen for STD (sexually transmitted disease) WET PREPARATION Routine 09/01/2023 2:31 PM POWER SHEAR OPERATOR Vaginal discharge Screen for STD (sexually transmitted disease) TESTOSTERONE FREE AND TOTAL Routine 09/01/2023 2:25 PM POWER SHEAR OPERATOR Breast tenderness HCG QUALITATIVE Routine 09/01/2023 2:25 PM POWER SHEAR OPERATOR Breast tenderness TESTOSTERONE FREE AND TOTAL Routine 09/01/2023 2:25 PM POWER SHEAR OPERATOR Breast tenderness SEX HORMONE BINDING GLOBULIN Routine 09/01/2023 2:25 PM POWER SHEAR OPERATOR Breast tenderness TREPONEMA ABS W REFLEX TO RPR AND TITER Routine 09/01/2023 2:25 PM POWER SHEAR OPERATOR Screen for STD (sexually transmitted disease) HIV ANTIGEN ANTIBODY COMBO Routine 09/01/2023 2:25 PM POWER SHEAR OPERATOR Screen for STD (sexually transmitted disease) PROGESTERONE Routine 09/01/2023 2:25 PM POWER SHEAR OPERATOR Breast tenderness ESTRADIOL Routine 09/01/2023 2:25 PM POWER SHEAR OPERATOR Breast tenderness PROLACTIN Routine 09/01/2023 2:25 PM POWER SHEAR OPERATOR Breast tenderness LUTEINIZING HORMONE Routine 09/01/2023 2 :25 PM POWER SHEAR OPERATOR Breast tenderness FOLLICLE STIMULATING HORMONE Routine 09/01/2023 2:25 PM POWER SHEAR OPERATOR Breast tenderness XR HAND RIGHT G/E 3 VIEWS Routine 08/01/2023 9:04 AM POWER SHEAR OPERATOR Finger pain, right GYNECOLOGIC CYTOLOGY Routine 09/22/2021 3:14 PM CDT Encounter for screening for cervical cancer ASTHMA ACTION PLAN Routine 06/24/2020 3: 56 PM POWER SHEAR OPERATOR HEPATITIS C ANTIBODY Routine 11/05/2019 2:08 PM [...] LAB - BLOOD ORDERA BLES CR LABORATORY [facility] [place] Lab [address] [place] [address] (no room number, 1st floor of clinic) [place] [address], [facility] [phone] * Streptococcus A Rapid Screen w/Reflex to PCR - Clinic Collect (10/05/2023 11:41 AM CDT) Group A Strep antigen Negative Negative 10/05/2023 12:07 PM CDT LV LABORATORY Swab STRUCTURE OF ANTERIOR PORTION OF NECK / Unknown Non-blood Collection / Unknown 10/05/2023 11:41 AM CDT 10/05/2023 11:59 AM CDT Amalia Zayas MD LAB - MICRO GENERAL ORDERABLES [facility] Lab [address] [place] [address] (no room number, 1st floor of clinic) [place] [address], [facility] [phone] * Group A Streptococcus PCR Throat Swab [...] Xpress Strep A test, performed on the [employer], is a rapid, qualitative in vitro [...] - MICRO GENERAL ORDERABLES [facility]AT[facility] Inf. Diseases Diag. Lab [address] [facility], [address] [place] [address], [facility] * (ABNORMAL) UA Macroscopic with reflex to Microscopic and Culture - Clinic Collect (10/05/2023 11:41AM CDT) Color Urine Yellow Colorless, Straw, Light Yellow, Yellow 10/05/2023 11:52 AM CDT LABORATORY Appearance Urine Clear Clear 10/05/19 11:52 AM CDT LABORATORY Glucose Urine Negative Negative mg/dL 10/05/2023 11:52 AM CDT LABORATORY Bilirubin Urine Negative Negative 11:52 AM CDT LABORATORY Ketones Urine Negative Negative mg/dL 10/05/2023 11:52 AM CDT LABORATORY Specific [place] Urine 1.010 1.003 - 1.035 10/05/2023 11:52 AM CDT LABORATORY Blood Urine Trace(A) Negative 10/05/2023 11:52 AM CDT LABORATORY pH Urine 6.0 5.0 - 7.0 10/05/2023 11:52 AM CDT LABORATORY Protein Albumin Urine Negative Negative mg/dL [...] MD LAB - URINE ORDERABL ES LABORATORY [facility] [address] [facility] Lab (no room number, 1st floor of clinic) [place] [address], [facility] [phone] * (ABNORMAL) Wet prep - lab collect [...] Zayas MD LAB - MICRO GENERAL ORDERABLES LV LABORATORY [facility] [address] [facility] Lab (no room number, 1st floor of clinic) [place] [address] [phone] * (ABNORMAL) Urine Microscopic Exam (10/05/2023 11:41 [...] LAB - URINE ORDERABL ES LV LABORATORY [facility] Lab [address] [facility] Lab (no room number, 1st floor of [facility]) [place] [address], [facility] [phone] * Urine Culture (10/05/2023 11:41 AM CDT) Culture <10,000 CFU/mL Mixture of Urogenital Darlene 10/06/2023 11:51 AM CDT [facility] Urine URINE SPECIMEN OBTAINED BY CLEAN CATCH PROCEDURE / Unknown Non-blood Collection / Unknown 10/05/2023 11:41 AM CDT 10/05/2023 11:52 AM CDT Amalia Zayas MD LAB - MICRO GENERAL ORDERABLES [facility]AT[facility] Inf. Diseases Diag. Lab [address] [facility], [address] [place] [address] * Surgical Pathology Exam (09/12/2023 1:41 PM POWER SHEAR OPERATOR) Case Report Surgical Pathology Report ? Case: [id number] ? Authorizing Provider: ??Tyshawn Sprague MD ?Collected: ? 09/12/2023 01:41 PM ? Ordering Location: ? [facility] ?Received: ?09/12/2023 03:09 PM ? [facility] ? Pathologist: ? Lázaro Jordan MD ? Specimens: ?? A) - Small Intestine, Duodenum, gastric evaluate for H. pylori ? B) - Esophagus, Distal, evaluate for eosinophilic esophagitis ? C) - Esophagus, Proximal, evaluate for eosinophilic esophagitis ? 09/14/2023 7:16 AM POWER SHEAR OPERATOR LABORATORY Final Diagnosis A(1). Stomach, biopsy: - [...] for dysplasia or malignancy 09/14/2023 7:16 AM [facility] Comment Prominent intra-epithelial eosinophilia (approximately 40 eosinophils per high-power field in the distal esophagus, and 25 eosinophils per high-power field in the proximal esophagus) is identified. In the appropriate clinical and endoscopic setting, findings are compatible with eosinophilic esophagitis. 09/14/2023 7:16 AM [facility] Clinical Information Procedure: Esophagoscopy, gastroscopy, duodenoscopy (EGD), combined Pre-op Diagnosis: Bloating [R14.0] Dysphagia, unspecified type [R13.10] Post-op Diagnosis: R14.0 - Bloating [ICD-10-CM] R13.10 - Dysphagia, unspecified type [ICD-10-CM] 09/14/2023 7:16 AM [facility] LABORATORY Gross Description A(1). Small Intestine, Duodenum, [...] (Margret David Biopsy Tech) 09/14/2023 7:16 AM [facility] LABORATORY Microscopic Description Microscopic examination was performed. 09/14/2023 7:16 AM [facility] Performing Labs The technical component of this testing was completed at [facility] Laboratory 09/14/2023 7:16 AM [facility]ORATORY Case Images 09/14/2023 7:16 AM [facility] Biopsy DUODENAL STRUCTURE / Unknown 09/12/2023 1:41 PM POWER SHEAR OPERATOR 09/12/2023 3:09 PM POWER SHEAR OPERATOR Specimen from unspecified body site obtained by biopsy (specimen) STRUCTURE OF LOWER THIRD OF ESOPHAGUS / Unknown 09/12/2023 1:42 PM POWER SHEAR OPERATOR 09/12/2023 3:09 PM POWER SHEAR OPERATOR Specimen from unspecified body site obtained by biopsy (specimen) STRUCTURE OF UPPER THIRD OF ESOPHAGUS / Unknown 09/12/2023 1:44 PM POWER SHEAR OPERATOR 09/12/2023 3:09 PM POWER SHEAR OPERATOR Tyshawn [facility] LABORAT[facility] Care Lab [address] [facility] (1st floor, no room number) [place] [address], [facility] [phone] LABORATORY [facility] [address] 1st floor, [address] [address], [place] [phone] * UPPER GI ENDOSCOPY (09/12/2023 1:02 PM POWER SHEAR OPERATOR) Upper GI Endoscopy [facility] [address] ??[address] [place] ??[id number] ___ Patient Name: Kim Johnson ?Procedure Date: 09/12/2023 1:02 PM ? Date of : 2000 ? Admit Type: Outpatient Age: 23 ? Room: [place] [address] Note Status: Finalized ?Attending MD: TYSHAWN SPRAGUE MD, Instrument Name: 505 [id number] Gastroscope ___ Procedure: ?Upper GI endoscopy Indications: ?Follow-up of gastro-esophageal reflux disease, ?Unexplained chest pain Providers: ?TYSHAWN SPRAGUE MD, Jess Bucio RN Referring : ? SEE CLAUDIO Medicines: ?Midazolam 4 mg [...] Procedure Code(s): ? --- Professional --- ? 16178, Esophagogastroduode noscopy, flexible, transoral; with biopsy, ? single or multiple Diagnosis Code(s): ? --- Professional --- ? K22.89, Other specified disease of esophagus ? K44.9, Diaphragmatic hernia without obstruction or gangrene ? K29.70, Gastritis, unspecified, without bleeding ? K21.9, Gastro-esophageal reflux disease without esophagitis ? R07.9, Chest pain, unspecified CPT copyright 2021 [employer]. All rights reserved. The codes documented in this report are preliminary and upon spin table operator review may be revised to meet [...] 1:36:53 PM RADIOLOGY RESULTS 09/12/2023 1:02 PM POWER SHEAR OPERATOR See Claudio PA-C PROCEDURES RADIOLOGY RESULTS * Troponin T, High Sensitivity (now) (09/07/2023 8:49 PM POWER SHEAR OPERATOR) Only the most recent of2 resultswithin the time period is included. Troponin T, High Sensitivity <6 <=14 ng/L 09/07/2023 9:23 PM POWER SHEAR OPERATOR [facility] Comment: Either a High Sensitivity Troponin [...] Unknown Venipuncture / Unknown 09/07/2023 8:49 PM POWER SHEAR OPERATOR 09/07/2023 8:53 PM POWER SHEAR OPERATOR Brea Meyer MD LAB - BLOOD DONYA HERRERA [facility] [address] Lab (1st floor, no room number) [place] [address], [facility] [phone] * Extra Purple Top Tube (09/07/2023 6:59 PM POWER SHEAR OPERATOR) Hold Specimen [facility] 09/07/2023 8:07 PM POWER SHEAR OPERATOR [facility] Blood STRUCTURE OF LEFT UPPER LIMB / Unknown Venipuncture / Unknown 09/07/2023 6:59 PM POWER SHEAR OPERATOR 09/07/2023 7:05 PM POWER SHEAR OPERATOR Brea Meyer MD LAB - BLOOD DONYA HERRERA Performing Organization Address City/[facility]/ZIP Co de Phone Number [facility] [address] Lab (1st floor, no room number) [place] [address], [facility] [phone] * Extra Red Top Tube (09/07/2023 6:59 PM POWER SHEAR OPERATOR) Hold Specimen [facility] 09/07/2023 8:07 PM POWER SHEAR OPERATOR [facility] Blood STRUCTURE OF LEFT UPPER LIMB / Unknown Venipuncture / Unknown 09/07/2023 6:59 PM POWER SHEAR OPERATOR 09/07/2023 7:05 PM POWER SHEAR OPERATOR Brea Meyer MD LAB - BLOOD DONYA HERRERA [facility] Acute Care Lab [address] Lab (1st floor, no room number) [place] [address], [facility] [phone] * (ABNORMAL) CBC with platelets and differential (09/07/2023 6:59 PM POWER SHEAR OPERATOR) [facility] WBC Count 5.7 4.0 - 11.0 10e3/uL 09/07/2023 7:08 PM POWER SHEAR OPERATOR [facility] RBC Count 5.11 3.80 - 5.20 10e6/uL 09/07/2023 7:08 PM POWER SHEAR OPERATOR [facility] Hemoglobin 13.4 11.7 - 15.7 g/dL 09/07/2023 7:08 PM POWER SHEAR OPERATOR [facility] Hematocrit 41.3 35.0 - 47.0 % 09/07/2023 7:08 PM POWER SHEAR OPERATOR [facility] MCV 81 78 - 100 fL 09/07/2023 7:08 PM POWER SHEAR OPERATOR [facility] MCH 26.2(L) 26.5 - 33.0 pg 09/07/2023 7:08 PM POWER SHEAR OPERATOR [facility] MCHC 32.4 31.5 - 36.5 g/dL 09/07/2023 7:08 PM POWER SHEAR OPERATOR [facility] RDW 12.6 10.0 - 15.0 % 09/07/2023 7:08 PM POWER SHEAR OPERATOR [facility] Platelet Count 233 150 - 450 10e3/uL 09/07/2023 7:08 PM POWER SHEAR OPERATOR [facility] % Neutrophils 43 % 09/07/2023 7:08 PM POWER SHEAR OPERATOR [facility] % Lymphocytes 45 % 09/07/2023 7:08 PM POWER SHEAR OPERATOR [facility] % Monocytes 6 % 09/07/2023 7:08 PM POWER SHEAR OPERATOR [facility] % Eosinophils 6 % 09/07/2023 7:08 PM POWER SHEAR OPERATOR [facility] % Basophils 0 % 09/07/2023 7:08 PM POWER SHEAR OPERATOR [facility] % Immature Granulocytes 0 % 09/07/2023 7:08 PM POWER SHEAR OPERATOR [facility] NRBCs per 100 WBC 0 <1 /100 024 7:08 PM POWER SHEAR OPERATOR [facility] Absolute Neutrophils 2.5 1.6 - 8.3 10e3/uL 09/07/2023 7:08 PM POWER SHEAR OPERATOR [facility] Absolute Lymphocytes 2.5 0.8 - 5.3 10e3/uL 09/07/2023 7:08 PM POWER SHEAR OPERATOR [facility] Absolute Monocytes 0.3 0.0 - 1.3 10e3/uL 09/07/2023 7:08 PM POWER SHEAR OPERATOR [facility] Absolute Eosinophils 0.4 0.0 - 0.7 10e3/uL 09/07/2023 7:08 PM POWER SHEAR OPERATOR [facility] Absolute Basophils 0.0 0.0 - 0.2 10e3/uL 09/07/2023 7:08 PM POWER SHEAR OPERATOR [facility] Absolute Immature Granulocytes 0.0 <=0.4 10e3/uL 09/07/2023 7:08 PM POWER SHEAR OPERATOR [facility] Absolute NRBCs 0.0 10e3/uL 09/07/2023 7:08 PM POWER SHEAR OPERATOR LABORATORY Blood STRUCTURE OF LEFT UPPER LIMB / Unknown Venipuncture / Unknown 09/07/2023 6:59 PM POWER SHEAR OPERATOR 09/07/2023 7:05 PM POWER SHEAR OPERATOR Brea Meyer MD LAB - BLOOD ORDE SHARON [facility] Acute Care Lab [address] [facility] Lab (1st floor, no room number) [place] [address], [facility] [phone] * Basic metabolic panel (09/07/2023 6:59 PM POWER SHEAR OPERATOR) [facility] Sodium 138 135 - 145 mmol/L 09/07/2023 7:27 PM [facility] Comment:Reference intervals for this test were updated on 04/05/2023 to more accurately reflect our healthy population. There may be differences in the flagging of prior results with similar values performed with this method. Interpretation of those prior results can be made in the context of the updated reference intervals. Potassium 3.7 3.4 - 5.3 mmol/L 09/07/2023 7:27 PM POWER SHEAR OPERATOR LABORATORY Chloride 100 98 - 107 mmol/L 09/07/2023 7:27 PM POWER SHEAR OPERATOR LABORATORY Carbon Dioxide (CO2) 26 22 - 29 mmol/L 09/07/2023 7:27 PM POWER SHEAR OPERATOR LABORATORY Anion Gap 12 7 - 15 mmol/L 09/07/2023 7:27 PM POWER SHEAR OPERATOR LABORATORY Urea Nitrogen 12.9 6.0 - 20.0 mg/dL 09/07/2023 7:27 PM [facility] Creatinine 0.73 0.51 - 0.95 mg/dL 09/07/2023 7:27 PM POWER SHEAR OPERATOR [facility] GFR Estimate >90 >60 mL/min/1. 73m2 09/07/2023 7:27 PM POWER SHEAR OPERATOR [facility] Calcium 9.5 8.6 - 10.0 mg/dL 09/07/2023 7:27 PM POWER SHEAR OPERATOR [facility] Glucose 90 70 - 99 mg/dL 09/07/2023 7:27 PM POWER SHEAR OPERATOR [facility] Blood STRUCTURE OF LEFT UPPER LIMB / Unknown Venipuncture / Unknown 09/07/2023 6:59 PM POWER SHEAR OPERATOR 09/07/2023 7:05 PM POWER SHEAR OPERATOR Brea Meyer MD LAB - BLOOD ORDE SHARON [facility] Acute Care Lab [address] [facility] Lab (1st floor, no room number) [place] [address], [facility] [phone] * EKG 12 lead (09/07/2023 6:14 PM POWER SHEAR OPERATOR) Systolic Blood Pressure mmHg RADIOLOGY RESULTS Diastolic Blood Pressure mmHg RADIOLOGY RESULTS Ventricular Rate 82 BPM RAD IOLOGY RESULTS Atrial Rate 82 BPM RADIOLOG Y RESULTS SD Interval 164 ms RADIOLOG Y RESULTS QRS Duration 86 ms RADIOLO GY RESULTS QT 382 ms RADIOLOGY RESULTS QTc 446 ms RADIOLOGY RESULTS P [place] 50 degrees RADIOLOGY RESULTS R AXIS 65 degrees RADIOLOGY RESULTS T [place] 47 degrees RADIOLOGY RESULTS Interpretation ECG Sinus rhythm Nonspecific ST abnormality Abnormal ECG When compared with ECG of 19-MAY-2023 09:49, No significant change was found Unconfirmed report - interpretation of this ECG is computer generated - see medical record for final interpretation Confirmed by - EMERGENCY ROOM, PHYSICIAN ([id number]), news videotape editor NIC LESTER ([id number]) on 09/08/2023 6:52:35 AM RADIOLOGY RESULTS 09/07/2023 6:14 PM POWER SHEAR OPERATOR 09/08/2023 6:52 AM POWER SHEAR OPERATOR Brea Meyer MD ECG ORDERABLES RADIOLOGY RESULTS * Chlamydia & Gonorrhea by PCR, [facility] Collect (09/01/2023 2:31 PM POWER SHEAR OPERATOR) [facility] Chlamydia Trachomatis Negative Negative 09/02/2023 12:32 PM POWER SHEAR OPERATOR [facility] Comment: Negative for C. trachomatis rRNA by manager eligibility mediated amplification. A negative result by manager eligibility mediated amplification does not preclude the presence of infection because results are dependent on proper and adequate collection, absence of inhibitors and sufficient rRNA to be detected. Neisseria gonorrhoeae Negative Negative 09/02/2023 12:32 PM POWER SHEAR OPERATOR [facility] Comment:Negative for N. gono rrhoeae rRNA by manager eligibility mediated amplification. A negative result by manager eligibility mediated amplification does not preclude the presence of C. trachomatis infection because results are dependent on proper and adequate collection, absence of inhibitors and sufficient rRNA to be detected. Swab VAGINAL STRUCTURE / Unknown Non-blood Collection / Unknown 09/01/2023 2:31 PM POWER SHEAR OPERATOR 09/01/2023 2:32 PM POWER SHEAR OPERATOR Esha Grimm PA-C LAB - MICRO GENERAL ORDERABLES [facility] Inf. Diseases Diag. Lab [address] [facility], [address] [place] [address], [facility] [phone] * Testosterone Free and Total (09/01/2023 2:25 PM POWER SHEAR OPERATOR) [facility] Free Testosterone Calculated 0.18 ng/dL 09/04/2023 6:56 AM POWER SHEAR OPERATOR [facility] Comment: Adult Female Reference Range: 18-30 Years: 0.08-0.74 ng/dL 31-40 Years: 0.13-0.92 ng/dL 41-51 Years: 0.11-0.58 ng/dL Postmenopausal: 0.06-0.38 ng/dL Testosterone Total 10 8 - 60 ng/dL 09/04/2023 6:56 AM POWER SHEAR OPERATOR [facility] Blood BLOOD SPECIMEN / Unknown Venipuncture / Unknown 09/01/2023 2:25 PM POWER SHEAR OPERATOR 09/01/2023 2:25 PM POWER SHEAR OPERATOR Narrative SPECIAL DRUG/BGEN - 09/04/2023 6:56 AM POWER SHEAR OPERATOR This test was developed and its performance characteristics determined by the [facility], ??Special Chemistry Laboratory. It has not been cleared or approved by the FDA. The laboratory is regulated under CLIA as qualified to perform high-complexity testing. This test is used for clinical purposes. It should not be regarded as investigational or for research. Esha Grimm PA-C LAB - BLOOD ORDERABL ES SPECIAL DRUG/BGEN Special Drug/BGEN [address] [facility], [address] [address], [facility] [phone] * Sex Hormone Binding Globulin (09/01/2023 2:25 PM POWER SHEAR OPERATOR) Sex Hormone Binding Globulin 32 30 - 135 nmol/L 09/01/2023 5:45 PM POWER SHEAR OPERATOR [facility] Blood BLOOD SPECIMEN / Unknown Venipuncture / Unknown 09/01/2023 2:25 PM POWER SHEAR OPERATOR 09/01/2023 2:25 PM POWER SHEAR OPERATOR Esha Grimm PA-C LAB - BLOOD ORDERABL ES Performing Organization Address [facility] Co de Phone Number [facility] Brea Core Lab [address] [facility], [address] [address], [facility] [phone] * HIV Antigen Antibody Combo (09/01/2023 2:25 PM POWER SHEAR OPERATOR) HIV Antigen Antibody Combo Nonreactive Nonreactive 09/01/2023 5:50 PM POWER SHEAR OPERATOR [facility] Comment:Negative HIV-1/-2 an tigen and antibody screening test results usually indicate the absence of HIV-1 and HIV-2 infection. However, such negative results do not rule-out acute HIV infection. If acute HIV-1 or HIV-2 infection is suspected, detection of HIV-1 or HIV-2 RNA is recommended. Blood BLOOD SPECIMEN / Unknown Venipuncture / Unknown 09/01/2023 2:25 PM POWER SHEAR OPERATOR 09/01/2023 2:25 PM POWER SHEAR OPERATOR Esha Grimm PA-C LAB - BLOOD ORDERABL ES [facility] Bre[facility] Lab [address] [facility], [address] [address], [facility] [phone] * Treponema Abs w Reflex to RPR and Titer (09/01/2023 2:25 PM POWER SHEAR OPERATOR) Treponema Antibody Total Nonreactive Nonreactive 09/01/2023 6:05 PM POWER SHEAR OPERATOR SPECIALTY CORE/PROT/EN DO Blood BLOOD SPECIMEN / Unknown Venipuncture / Unknown 09/01/2023 2:25 PM POWER SHEAR OPERATOR 09/01/2023 2:25 PM POWER SHEAR OPERATOR Esha Grimm PA-C LAB - BLOOD ORDERABL ES SPECIALTY CORE/PROT/ENDO Specialty Core/Prot/Endo [address] [facility], [address] [phone] * Prolactin (09/01/2023 2:25 PM POWER SHEAR OPERATOR) Prolactin 6 5 - 23 ng/mL 09/01/2023 7:34 PM POWER SHEAR OPERATOR [facility] Blood BLOOD SPECIMEN / Unknown Venipuncture / Unknown 09/01/2023 2:25 PM POWER SHEAR OPERATOR 09/01/2023 2:25 PM POWER SHEAR OPERATOR Esha Grimm PA-C LAB - BLOOD ORDERABL ES [facility] Brea Core Lab [address] [facility], [address] [address], [facility] [phone] * Progesterone (09/01/2023 2:25 PM POWER SHEAR OPERATOR) Progesterone 0.3 ng/mL 09/01/2023 7:34 PM POWER SHEAR OPERATOR [facility] Comment: Healthy Postmenopausal Women Postmenopause: <0.1-0.126 [...] Unknown Venipuncture / Unknown 09/01/2023 2:25 PM POWER SHEAR OPERATOR 09/01/2023 2:25 PM POWER SHEAR OPERATOR Esha Grimm PA-C LAB - BLOOD ORDERJUAN FRANCISCO BURNETT [facility] Brea Core Lab [address] [place] [address], [address] [address], [facility] [phone] * Luteinizing Hormone (09/01/2023 2:25 PM POWER SHEAR OPERATOR) Luteinizing Hormone 4.4 mIU/mL 09/01/2023 7:34 PM POWER SHEAR OPERATOR [facility] Comment: FEMALE: Age 0 - 6 mo: ??<0.1-8.2 mIU/mL 6 mo - 11 years: <0.1-1.3 mIU/mL 11 - 14 years: <0.1-10 mIU/mL 14 - 19 years: 0.4-25 mIU/mL 19 years and older: Follicular Phase: 2.4-12.6 mIU/mL Ovulation Phase: 14.0-95.6 mIU/mL Luteal Phase: 1.0-11.4 ??mIU/mL Postmenopausal: 7.7-58.5 mIU/mL Blood BLOOD SPECIMEN / Unknown Venipuncture / Unknown 09/01/2023 2:25 PM POWER SHEAR OPERATOR 09/01/2023 2:25 PM POWER SHEAR OPERATOR Esha Grimm PA-C LAB - BLOOD ORDERABL LEX [facility] Brea Core Lab [address] [facility], [address] [place] [address], [facility] [phone] * hCG Qualitative (09/01/2023 2:25 PM POWER SHEAR OPERATOR) hCG Serum Qualitative Negative Negative REINA 09/01/2023 5:34 PM POWER SHEAR OPERATOR [facility] Comment:This test is for scr eening purposes. Results should be interpreted along with the clinical picture. Confirmation testing is available if warranted by ordering [id number], HCG Quantitative . Blood BLOOD SPECIMEN / Unknown Venipuncture / Unknown 09/01/2023 2:25 PM POWER SHEAR OPERATOR 09/01/2023 2:25 PM POWER SHEAR OPERATOR Esha Grimm PA-C LAB - BLOOD ORDERABL ES [facility] Brea Core Lab [address] [facility], [address] [place] [address], [facility] [phone] * Follicle stimulating hormone (09/01/2023 2:25 PM POWER SHEAR OPERATOR) FSH 4.5 mIU/mL 09/01/2023 7:34 PM POWER SHEAR OPERATOR [facility] Comment: 19 years and older: Follicular phase: 3.5-12.5 mIU/mL Ovulation phase: 4.7-21.5 mIU/mL Luteal phase: 1.7-7.7 mIU/mL Postmenopause: 25.8-134.8 mIU/mL Blood BLOOD SPECIMEN / Unknown Venipuncture / Unknown 09/01/2023 2:25 PM POWER SHEAR OPERATOR 09/01/2023 2:25 PM POWER SHEAR OPERATOR Esha Grimm PA-C LAB - BLOOD ORDERABL ES [facility] Brea Core Lab [address] [facility], [address] [place] [address], [facility] [phone] * Estradiol (09/01/2023 2:25 PM POWER SHEAR OPERATOR) Estradiol 14 pg/mL 09/01/2023 7:34 PM POWER SHEAR OPERATOR [facility] Comment: Healthy Men: 11.3-43.2 pg/mL Healthy Postmenopausal Women: Postmenopause: <5-138 pg/mL Healthy Women: 1st trimester: 154-3243 pg/mL 2nd trimester: 1561-31286 pg/mL 3rd trimester: 8525->18864 pg/mL Healthy Women Cycle Phase: Follicular: 30.9-90.4 pg/mL Ovulation: 60.4-533 pg/mL Luteal: 60.4-232 pg/mL Healthy Women Cycle Sub-Phase: Early Follicular: 20.5-62.8 pg/mL Intermediate Follicular: 26-79.8 pg/mL Late Follicular: 49.5-233 pg/mL Ovulation: 60.4-602 pg/mL Early Luteal: 51.1-179 pg/mL Intermediate Luteal: 66.5-305 pg/mL Late Luteal: 30.2-222 pg/mL Blood BLOOD SPECIMEN / Unknown Venipuncture / Unknown 09/01/2023 2:25 PM POWER SHEAR OPERATOR 09/01/2023 2:25 PM POWER SHEAR OPERATOR Esha Grimm PA-C LAB - BLOOD ORDERABL ES LABORATORY [facility] Brea Core Lab [address] [facility], [address] [phone] * XR Hand Right G/E 3 Views (08/01/2023 9:04 AM POWER SHEAR OPERATOR) Anatomical Region Laterality Modality Hand, Wrist Right Computed Radiogr aphy Impressions 08/01/2023 10:59 AM POWER SHEAR OPERATOR IMPRESSION: The right hand is negative for fracture or dislocation. No erosive changes. JASON ALVARADO MD SYSTEM ID: ??[id number] Narrative 08/01/2023 10:59 AM POWER SHEAR OPERATOR XR HAND RIGHT G/E 3 VIEWS 08/01/2023 9:04 AM HISTORY: Finger pain, right COMPARISON: None. Procedure Note Jason Alvarado MD - 08/01/2023 XR HAND RIGHT G/E 3 VIEWS 08/01/2023 9:04 AM HISTORY: Finger pain, right COMPARISON: None. IMPRESSION: The right hand is negative for fracture or dislocation. No erosive changes. JASON ALVARADO MD SYSTEM ID: [id number] Esha Grimm PA-C IMG DIAGNOSTIC IMAGI NG [...] component of this testing was completed at [facility] 09/25/2021 10:27 AM CDT SPECIALTY LABS Brushing CERVIX UTERI STRUCTURE / Unknown 09/22/2021 3:14 PM CDT 09/22/2021 3:48 PM CDT Marija MCCORMICK SPECIAL[facility] LAB[facility] [address] [facility], [address] [address], [facility] [phone] * Hepatitis C antibody (11/05/2019 2:08 PM CDT) Hepatitis C Antibody Nonreactive NR^Nonre active 11/06/2019 9:42 AM CDT [facility] Comment: Assay performance characteristics have not been established for newborns, infants, and children Blood specimen (specimen) 11/05/2019 2:08 PM CDT 11/05/2019 2:13 PM CDT Chanelle MACHADO B - BLOOD ORDERABLES [facility] [address] [place] [address] from Last 3 Months or Most Recently Relevant to Health Maintenance Advance Directives For more information, please contact: [phone] * Full Code (Latest Code Status on File) Date Activated Date Inactivated Comments 01/14/2021 7:36 AM 01/15/2021 6:05 PM All basic and advanced life-sustaining interventions are performed as appropriate Question Answer Comments Code status determined by: Discussion with patie nt/ legal decision maker Care Teams Front Attendant Relationship Specialty Start Date End Date Esha Grimm PA-C [address] [place] [phone] PCP - General Family Medicine 05/04/23 Diana Desir, [facility] [address] [place], [place] [phone] Pharmacist Pharmacist 04/17/21 Rain Galavzi PA-C [address] [place] [address] [address] [place] [address] Physician Signalling And Communications Engineer Dermatology 04/28/21 Taiva Wyatt MD [address] [place] [address] [address] [address] Dermatology 07/14/21 Erica Farrell APRN ULTRASOUND COORDINATOR [address] [facility] [address] [place] [id number] Nurse Practitioner Cardiovascular Disease 09/09/21 Rich Barrett MD [address] [id number] Physician Ophthalmology 01/21/22 Neil Kent MD [address] [place], [place] [phone] Dermatology 02/24/22 Diana Desir, [facility] [address] [place], [place] 425[address] Assigned MTM Pharmacist 04/07/22 Livan Sharif MD [address] [place] [address] [place] [id number] Cardiovascular Disease 05/14/22 Catherine Cm MD [address] [facility] [place] 8[address] Cardiovascular Disease 07/21/22 Valery Veronica, PA-C [address] [place], [place] 981765 Physician Signalling And Communications Engineer Dermatology 07/21/22 Brea Quinn APRN ULTRASOUND COORDINATOR [address] [place], [place] [phone] Nurse Practitioner Dermatology 09/21/22 Brea Quinn APRN ULTRASOUND COORDINATOR [address] [place] [id number] Assigned Surgical Provider 10/09/22 [place] [address] [place] [address] Assigned Musculoskeletal Provider 10/09/22 Alfonso Renteria MD [address] [place] [address] Assigned Neuroscience Provider 04/02/23 Radha Lomeli APRN ULTRASOUND COORDINATOR [address] [facility] [address] [place] [address] Assigned Heart and Vascular Provider 05/28/23 Jelena David OD [address] [facility] [place] [address] Ophthalmology 06/15/23 Pao Joseph, VJ Personal Advocate & Liaison (PAL) Nurse 08/01/23 Esha Grimm PABaldo [address] [place] [phone] Assigned PCP 07/16/23 Valery Veronica PAUcheC [address] [place] [address] [phone] Physician Signalling And Communications Engineer Dermatology 09/19/23 Tyshawn Sprague MD [address] [place] [address] [phone] Gastroenterology 09/20/23 Rocky Zepeda DO [address] [place] [address] [phone] Physician Gastroenterology 09/20/23 Philip Dumont MD [address] [place] [address] 664855 Physician Ophthalmology 09/22/23
--- OUTSIDE RECORDS SUMMARY | 2023-10-28 16:32 | XMS_ITS | Encounter Summary ---
Author Name Unknown Organization [place] Address [address] [place] [address] Care Team Providers Care Nurse Executive Name Role Phone ThangKendrickDiana T [facility] Unavailable Rain Galaviz-C Unavailable Tavia Wyatt MD Unavailable Unavailable Erica Farrell APRN MIDDLEWARE ARCHITECT Unavailable Rich Barrett MD Unavailable Neil Kent MD Unavailable Diana Desir [facility] Unavailable [phone] Livan Sharif MD Unavailable Catherine Cm MD Unavailable + Valery Veronica-C Unavailable [phone] Brea Quinn PUBLIC RELATIONS INTERN MIDDLEWARE ARCHITECT Unavailable Brea Quinn PUBLIC RELATIONS INTERN MIDDLEWARE ARCHITECT Unavailable Jose Francisco Johnson MD Unavailable Alfonso Renteria MD Unavailable + [phone] Esha Grimm PA-C Primary Care Provider [phone] Radha Lomeli PUBLIC RELATIONS INTERN MIDDLEWARE ARCHITECT Unavailable [phone] FrankieJelena OD Unavailable Pao Joseph RN Unavailable Unavailable Esha Grimm PA-C Unavailable [phone] Valery Veronica PA-C Unavailable Rey Tay MD Unavailable Rocky Zepeda DO Unavailable Philip Dumont MD Unavailable [phone] Encounter Details Date Type Department Care Team (Late st Contact Info) Description 10/27/2023 Telephone [facility] [place] [address] [facility] 4th [place] [address] Rocky Zepeda DO 500 [place] [address] Social History Tobacco Use Types [...] How often do you attend chur or catholic services? 1 to 4 times [...] Answer Date Recorded PHQ-2 Score 0 10/25/2023 [facility] - Occupational Stress Questionnaire Answer Date [...] exercise at this level? 30 min 03/10/2023 [place] Depression Scale Answer Date Recorded [place] Depression Score 5 01/14/2021 Last EPDS Self [...] encounter Miscellaneous Notes * Telephone Encounter - Josue Rod - 10/27/2023 4:41 PM CDT [facility] Call Center Phone Message May a detailed message be left on voicemail: yes Reason for Call: Other: Pt still hasnt been able to schedule for follow up appt after EGD. Seen by pcp in regards to symptoms, pcp told pt it was a GI issue. Symptoms are a lot of chest pressure after eating, stomach pain, and diarrhea. Tongue had tingly feelings and felt numb. Action Taken: Other: csc gi Travel Screening: Not Applicable documented in this encounter Plan of Treatment Upcoming Encounters Date Type Department Care Team (Late st Contact Info) Description 11/01/2023 8:00 AM CDT Appointment [facility] [address] [place] [address] Lauren Claudio PA-C [address] [place] [address] 11/03/2023 8:00 AM CDT Office Visit [address] [phone] Valery Veronica PA-C 909 [place] [address] 11/29/2023 8:00 AM CDT Office Visit [facility] [address] [place] [phone] Esha Grimm PA-C [address] [place] [phone] 12/19/2023 11:30 AM CDT Hospital Encounter [address] [phone] Rocky Zepeda DO 500 [place], [place] 202545 12/19/2023 11:30 AM CDT - 12/19/2023 12:00 PM CDT Surgery [address] [phone] Rocky Zepeda DO 500 [place], [place] 275045 Esophagoscopy, gastroscopy, duodenoscopy (EGD), combined 01/02/2024 8:00 AM CDT Office Visit [facility] [address] [phone] Lauren Claudio PA-C [address] [place], [place] [phone] Kelli Perez MD [address] [place] [address] [phone] Scheduled Procedures Name Priority Associated Diagnoses Date/Ti wy ESOPHAGOGASTRODUODENOSCOPY Eosinophilic esophagitis Esophageal dysphagia 12/19/2023 11:30 AM CDT documented as of this encounter Visit Diagnoses Not on filedocumented in this encounter Additional Health Concerns Assessment Noted Time PHQ-9 Depression Total Score: 4 06/20/20 23 8:40 AM BOREMATIC OPERATOR documented as of this encounter Care Teams Nurse Executive Relationship Specialty Start Date End Date Esha Grimm PA-C [address] [place] [address] PCP - General Family Medicine 05/04/23 Diana Desir, [facility] [address] [place] [address] Pharmacist Pharmacist 04/17/21 Rain Galaviz PA-C [address] [place] [address] [address] [place] [address] Physician Proposal Analyst Dermatology 04/28/21 Tavia Wyatt MD [address] [place] [address] DR [facility] [address] Dermatology 07/14/21 Erica Farrell APRN MIDDLEWARE ARCHITECT [address] [facility] [address] [place] [address] Nurse Practitioner Cardiovascular Disease 09/09/21 Rich Barrett MD 516 [facility] 9A [place], [place] 403765 Physician Ophthalmology 01/21/22 Neil Kent MD 500 [place], [place] 309845 Dermatology 02/24/22 Diana Desir, [facility] [address] [place] [address] Assigned MTM Pharmacist 04/07/22 Livan Sharif MD [address], [facility] [address] [place] [address] Cardiovascular Disease 05/14/22 Catherine Cm MD [address] [facility] [address] [place] 426145 Cardiovascular Disease 07/21/22 Valery Veronica, PA-C [address] [place] [address] 408495 Physician Proposal Analyst Dermatology 07/21/22 Brea Quinn APRN MIDDLEWARE ARCHITECT [address] [place] [address] 204865 Nurse Practitioner Dermatology 09/21/22 Brea Quinn APRN MIDDLEWARE ARCHITECT 6401 [place], [place] 713982 Assigned Surgical Provider 10/09/22 [place] [address] [address] [facility] 300 [place] [address] Assigned Musculoskeletal Provider 10/09/22 Alfonso Renteria MD [address] [facility] 200 [place], [place] 482876 Assigned Neuroscience Provider 04/02/23 Radha Lomeli APRN MIDDLEWARE ARCHITECT [address] [place] [address] Assigned Heart and Vascular Provider 05/28/23 Jelena David OD [address] [facility] [place] [address] Ophthalmology 06/15/23 Pao Joseph, RN Personal Advocate & Liaison (PAL) Nurse 08/01/23 Esha Grimm PA-C [address] [place] [address]149383 Assigned PCP 07/16/23 Valery Veronica PA-C 909 [place], [place] 067605 Physician Proposal Analyst Dermatology 09/19/23 Rey Tay MD [address] [place] [address] [id number] Gastroenterology 09/20/23 Rocky Zepeda DO [address] [place] [address] 511975 Physician Gastroenterology 09/20/23 Philip Dumont MD [address] [place] [address] 419185 Physician Ophthalmology 09/22/23 documented as of this encounter
--- OUTSIDE RECORDS SUMMARY | 2023-10-28 16:33 | XMS_ITS | Encounter Summary ---
Author Name Unknown Organization [place] Address [address] [place] [address] Care Team Providers Care Accountant Controller Name Role Phone ThangKendrickDiana T [facility] Unavailable Rain Galaviz-C Unavailable [phone] Tavia Wyatt MD Unavailable Unavailable Erica Farrell APRN SILK BRUSHER Unavailable Rich Barrett MD Unavailable Neil Kent MD Unavailable Diana Desir [facility] Unavailable [phone] Livan Sharif MD Unavailable Catherine Cm MD Unavailable + Valery Veronica-C Unavailable [phone] Brea Quinn BANK VAULT ATTENDANT SILK BRUSHER Unavailable Brea Quinn BANK VAULT ATTENDANT SILK BRUSHER Unavailable Jose Francisco Johnson MD Unavailable Alfonso Renteria MD Unavailable + [phone] Esha Grimm PA-C Primary Care Provider Radha Lomeli BANK VAULT ATTENDANT SILK BRUSHER Unavailable FrankieJelena OD Unavailable Pao Joseph RN Unavailable Unavailable Esha Grimm PA-C Unavailable [phone] Valery Veronica PA-C Unavailable [phone] Rey Tay MD Unavailable Duane Rockyanne [facility] Unavailable Philip Dumont MD Unavailable [phone] Encounter Details Date Type Department Care Team (Late st Contact Info) Description 10/25/2023 MyC Medical Advice [facility] [address] 4th [place] [address] [facility] Social History Tobacco Use Types Packs/Day Years [...] often do you attend chur ch or hindu services? 1 to 4 times per year 03/10/2023 Do you belong to any clubs o r organizations such as catholic groups, unions, fraternal or athletic groups, [...] Answer Date Recorded PHQ-2 Score 0 10/25/2023 [facility] - Occupational Stress Questionnaire Answer [...] exercise at this level? 30 min 03/10/2023 [place] Depression Scale Answer Date Recorded [place] Depression Score 5 01/14/2021 Last EPDS Self [...] Info) Description 11/01/2023 8:00 AM CDT Appointment [facility] [address] [place] [address] Lauren Claudio PA-C [address] [place], [place] [phone] 11/03/2023 8:00 AM CDT Office Visit [address] [phone] Valery Veronica PA-C [address] [place] [address] 11/29/2023 8:00 AM CDT Office Visit [facility] [address] [place] [phone] Esha Grimm PA-C [address] [place] [address] 12/19/2023 11:30 AM CDT Hospital Encounter [facility] 909 [facility] 5th [place] [phone] Rocky Zepeda DO [address] [place] [address] 12/19/2023 11:30 AM CDT - 12/19/2023 12:00 PM CDT Surgery [facility] 909 [facility] [address] 5th [place] [phone] Rocky Zepeda, 500 [place], [place] 477445 Esophagoscopy, gastroscopy, duodenoscopy (EGD), combined 01/02/2024 8:00 AM CDT Office Visit [facility] [address] [place] [phone] Lauren Claudio PA-C [address] [place], [place] [phone] Kelli Perez MD [address] [phone] Scheduled Procedures Name Priority Associated Diagnoses Date/Ti pr ESOPHAGOGASTRODUODENOSCOPY Eosinophilic esophagitis Esophageal dysphagia 12/19/2023 11:30 AM CDT documented as of this encounter Visit Diagnoses Not on filedocumented in this encounter Additional Health Concerns Assessment Noted Time PHQ-9 Depression Total Score: 4 06/20/20 23 8: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 [address] [place], [place] [address] Pharmacist Pharmacist 04/17/21 Rain Galaviz PA-C [address] [place] [address] [address] [place] [id number] Physician Gasoline Pump Installer Dermatology 04/28/21 Tavia Wyatt MD [address] [place] [address] [address] [facility] [place] [address] Dermatology 07/14/21 Erica Farrell APRN SILK BRUSHER [address] [place], [place] [address]15 Nurse Practitioner Cardiovascular Disease 09/09/21 Rich Barrett MD [address] [facility] 9A [place] [address] Physician Ophthalmology 01/21/22 Neil Kent MD 500 [place] [address] Dermatology 02/24/22 [facility] 3033 [place], [place] 024936 Assigned MTM Pharmacist 04/07/22 Livan Sharif MD [address] [place] [address] Cardiovascular Disease 05/14/22 Catherine Cm MD [address] [place] 224785 Cardiovascular Disease 07/21/22 Valery Veronica, PA-C [address] [place] [address] 132075 Physician Gasoline Pump Installer Dermatology 07/21/22 Brea Quinn APRN SILK BRUSHER 500 [place] [address] Nurse Practitioner Dermatology 09/21/22 Brea Quinn APRN SILK BRUSHER 6401 [facility] [place] [address] Assigned Surgical Provider 10/09/22 [place] [address] [facility] 300 [place] [address] Assigned Musculoskeletal Provider 10/09/22 Alfonso Renteria MD 5775 [facility] 200 [place], [place] 713726 Assigned Neuroscience Provider 04/02/23 Radha Lomeli APRN SILK BRUSHER 6405 [facility] [address] [place] [address] Assigned Heart and Vascular Provider 05/28/23 Jelena David OD [address] [facility] [address] Ophthalmology 06/15/23 Pao Joseph, VJ Personal Advocate & Liaison (PAL) Nurse 08/01/23 Esha Grimm PA-C [address] [place] [phone] Assigned PCP 07/16/23 Valery Veronica PA-C 909 [place] [address] Physician Gasoline Pump Installer Dermatology 09/19/23 Rey Tay MD [address] [place] [address] MD Gastroenterology 09/20/23 Rocky Zepeda DO [address] [place] [address] Physician Gastroenterology 09/20/23 Philip Dumont MD [address] [place] [address] Physician Ophthalmology 09/22/23 documented as of this encounter
--- OUTSIDE RECORDS SUMMARY | 2023-10-28 16:33 | XMS_ITS | Encounter Summary ---
Author Name Unknown Organization [place] Address [address] [place] [address] Care Team Providers Care Drop Worker Name Role Phone ThangKendrickDiana T [facility] Unavailable Rain Galaviz-C Unavailable Tavia Wyatt MD Unavailable Unavailable Erica Farrell APRN INFORMATION CONSULTANT Unavailable Rich Barrett MD Unavailable Neil Kent MD Unavailable Diana Desir [facility] Unavailable [phone] Livan Sharif MD Unavailable Catherine Cm MD Unavailable + Valery Veronica-C Unavailable [phone] Brea Quinn SENIOR FRONT END DEVELOPER INFORMATION CONSULTANT Unavailable Brea Quinn SENIOR FRONT END DEVELOPER INFORMATION CONSULTANT Unavailable Jose Francisco Johnson MD Unavailable Alfonso Renteria MD Unavailable + [phone] Esha Grimm PA-C Primary Care Provider [phone] Radha Lomeli SENIOR FRONT END DEVELOPER INFORMATION CONSULTANT Unavailable FrankieJelena OD Unavailable [phone] Pao Joseph RN Unavailable Unavailable Esha Grimm PA-C Unavailable [phone] Valery Veronica PA-C Unavailable [phone] Rey Tay MD Unavailable Duane Rockyanne STEVENS Unavailable Philip Dumont MD Unavailable [phone] Encounter Details Date Type Department Care Team (Late st Contact Info) Description 10/26/2023 MyC Medical Advice [facility] Clinic [address] [place] [address] [place] Social History Tobacco [...] any clubs o r organizations such as restoration groups, unions, fraternal or athletic groups, [...] Answer Date Recorded PHQ-2 Score 0 10/25/2023 [facility] - Occupational Stress Questionnaire [...] exercise at this level? 30 min 03/10/2023 [place] Depression Scale Answer Date Recorded [place] Depression Score 5 01/14/2021 Last EPDS Self [...] Info) Description 11/01/2023 8:00 AM CDT Appointment [facility] [address] [place] [address] Lauren Claudio PA-C [address] [place], [place] [phone] 11/03/2023 8:00 AM CDT Office Visit [address] [phone] Valery Veronica PA-C [address] [place] [address] 11/29/2023 8:00 AM CDT Office Visit [facility] [address] [place] [phone] Esha Grimm PA-C [address] [place] [address] 12/19/2023 11:30 AM CDT Hospital Encounter [facility] 909 [facility] 5th [place] [phone] Rocky Zepeda DO [address] [place] [address] 12/19/2023 11:30 AM CDT - 12/19/2023 12:[address] [facility] 909 [facility] SE 5th [place] [phone] Rocky Zepeda, 500 [place], [place] 8816[address] Esophagoscopy, gastroscopy, duodenoscopy (EGD), combined 01/02/2024 8:00 AM CDT Office Visit [facility] [address] [place] [phone] Lauren Claudio PA-C [address] [place], [place] [phone] Kelli Perez MD [address] [phone] Scheduled Procedures Name Priority Associated Diagnoses Date/Ti nd ESOPHAGOGASTRODUODENOSCOPY Eosinophilic esophagitis Esophageal dysphagia 12/19/2023 11:30 AM CDT documented as of this encounter Visit Diagnoses Not on filedocumented in this encounter Additional Health Concerns Assessment Noted Time PHQ-9 Depression Total Score: 4 06/20/20 23 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 documented as of this encounter Care Teams Drop Worker Relationship Specialty Start Date End Date Esha Grimm PA-C [address] [place] [address] PCP - General Family Medicine 05/04/23 Diana Desir, [facility] [address] [place], [place] [address] Pharmacist Pharmacist 04/17/21 Rain Galaviz PA-C [address] [place] [address] [address] [place] [id number] Physician Print Decorator Dermatology 04/28/21 Tavia Wyatt MD [address] [place] [address] DR RAZO [facility] [place] [address] Dermatology 07/14/21 Erica Farrell APRN INFORMATION CONSULTANT [address] [place], [place] 126415 Nurse Practitioner Cardiovascular Disease 09/09/21 Rich Barrett MD 516 [facility] 9A [place] [address] Physician Ophthalmology 01/21/22 Neil Kent MD 500 [place] [address] Dermatology 02/24/22 [facility] 3033 [place], [place] 127696 Assigned MTM Pharmacist 04/07/22 Livan Sharif MD [address] [place] [address] Cardiovascular Disease 05/14/22 Catherine Cm MD [address] [place] [address]295 Cardiovascular Disease 07/21/22 Valery Veronica, PA-C [address] [place] [address] 824575 Physician Print Decorator Dermatology 07/21/22 Brea Quinn APRN INFORMATION CONSULTANT 500 [place] [address] Nurse Practitioner Dermatology 09/21/22 Brea Quinn APRN INFORMATION CONSULTANT 6401 [facility] [place] [address] Assigned Surgical Provider 10/09/22 [place] [address] [facility] 300 [place] [address] Assigned Musculoskeletal Provider 10/09/22 Alfonso Renteria MD 5775 [facility] 200 [place], [place] 642366 Assigned Neuroscience Provider 04/02/23 Radha Lomeli APRN INFORMATION CONSULTANT [address] [facility] [address] [place] [address] Assigned Heart and Vascular Provider 05/28/23 Jelena David OD [address] [facility] [place] [address] Ophthalmology 06/15/23 Pao Joseph, VJ Personal Advocate & Liaison (PAL) Nurse 08/01/23 Esha Grimm PA-C [address] [place] [phone] Assigned PCP 07/16/23 Valery Veronica PA-C 909 [place] [address] Physician Print Decorator Dermatology 09/19/23 Rey Tay MD [address] [place] [address] MD Gastroenterology 09/20/23 Rocky Zepeda DO [address] [place] [address] Physician Gastroenterology 09/20/23 Philip Dumont MD [address] [place] [address] Physician Ophthalmology 09/22/23 documented as of this encounter
--- OUTSIDE RECORDS SUMMARY | 2023-10-28 16:33 | XMS_ITS | Encounter Summary ---
Author Name Unknown Organization [place] Address [address] [place] [address] Care Team Providers Care Tire Trucker Name Role Phone ThangKendrickDiana T [facility] Unavailable Rain Galaviz-C Unavailable Tavia Wyatt MD Unavailable Unavailable Erica Farrell APRN CONTAINER PACKER OPERATOR Unavailable Rich Barrett MD Unavailable Neil Kent MD Unavailable Diana Desir [facility] Unavailable [phone] Livan Sharif MD Unavailable Catherine Cm MD Unavailable + Valery Veronica-C Unavailable [phone] Brea Quinn ROPING TENDER CONTAINER PACKER OPERATOR Unavailable Brea Quinn ROPING TENDER CONTAINER PACKER OPERATOR Unavailable Jose Francisco Johnson MD Unavailable Alfonso Renteria MD Unavailable + [phone] Esha Grimm PA-C Primary Care Provider Radha Lomeli ROPING TENDER CONTAINER PACKER OPERATOR Unavailable FrankieJelena OD Unavailable Pao Joseph RN Unavailable Unavailable Esha Grimm PA-C Unavailable [phone] Valery Veronica PA-C Unavailable Rey Tay MD Unavailable DuaneRocky Unavailable Philip Dumont MD Unavailable [phone] Reason for Visit * Reason Onset Date Comments Call Back 10/24/2023 Encounter Details Date Type Department Care Team (Late st Contact Info) Description 10/24/2023 Telephone [facility] G[facility]ology [facility] [address] [place] [address] Meredith Carrera PA-C [address] [place] [address] Call Back Social History Tobacco Use Types [...] often do you attend chur ch or yazdanism services? 1 to 4 times per year [...] Answer Date Recorded PHQ-2 Score 0 10/25/2023 [facility] - Occupational Stress Questionnaire [...] exercise at this level? 30 min 03/10/2023 [place] Depression Scale Answer Date Recorded [place] Depression Score 5 01/14/2021 Last EPDS Self [...] encounter Miscellaneous Notes * Telephone Encounter - Luzma Martinez - 10/24/2023 2:17 PM CDT [facility] Call Center Phone Message May a detailed message be left on voicemail: yes Reason for Call: Other: Patient calling to discuss next appointment. Please call the patient to discuss. Action Taken: Message routed to: [facility] GI Travel Screening: Not Applicable documented in this encounter Plan of Treatment Upcoming Encounters Date Type Department Care Team (Late st Contact Info) Description 11/01/2023 8:00 AM CDT Appointment [facility] Imaging [address] [place] [address] Lauren Claudio PA-C [id number] [place] [address] 11/03/2023 8:00 AM CDT Office Visit [facility] [address] [place] [address] Valery Veronica PA-C [address] [place] [address] 11/29/2023 8:00 AM CDT Office Visit [facility] [address] [place] [phone] Esha Grimm PA-C [address] [place] [phone] 12/19/2023 11:30 AM CDT Hospital Encounter [address] [phone] Rocky Zepeda DO [address] [place], [place] 1458[address] 12/19/2023 11:30 AM CDT - 12/19/2023 12:00 PM CDT Surgery [address] [phone] Rocky Zepeda DO [address] [place], [place] 135735 Esophagoscopy, gastroscopy, duodenoscopy (EGD), combined 01/02/2024 8:00 AM CDT Office Visit [address] [phone] Lauren Claudio PA-C [address] [place], [place] [phone] Kelli Perez MD [address] [place] [address] [phone] Scheduled Procedures Name Priority Associated Diagnoses Date/Ti ks ESOPHAGOGASTRODUODENOSCOPY Eosinophilic esophagitis Esophageal dysphagia 12/19/2023 11:30 AM CDT documented as of this encounter Visit Diagnoses Not on filedocumented in this encounter Additional Health Concerns Assessment Noted Time PHQ-9 Depression Total Score: 4 06/20/20 23 8:40 AM APPRAISAL COORDINATOR documented as of this encounter Care Teams Tire Trucker Relationship Specialty Start Date End Date Esha Grimm PA-C [address] [place] [phone] PCP - General Family Medicine 05/04/23 Diana Desir, [facility] [address] [place] [address] Pharmacist Pharmacist 04/17/21 Rain Galaviz PA-C [address] [place] [address] [address] [place] [address] Physician Real Estate Services Administrator Dermatology 04/28/21 Tavia Wyatt MD [address] [place] [address] [address] [facility] [place] [address] Dermatology 07/14/21 Erica Farrell, ARLENE CONTAINER PACKER OPERATOR [address] [place], [place] 8688[address] Nurse Practitioner Cardiovascular Disease 09/09/21 Rich Barrett MD 516 [facility] [address] [place], [place] 6[address] Physician Ophthalmology 01/21/22 Neil Kent MD 500 [place], [place] 953835 Dermatology 02/24/22 Diana Desir, [facility] [address] [place] [address] Assigned MTM Pharmacist 04/07/22 Livan Sharif MD [address] [place] [address] Cardiovascular Disease 05/14/22 Catherine Cm MD 6405 [facility] [address] [place] [address] Cardiovascular Disease 07/21/22 Valery Veronica, PAUcheC [address] [place] [address] Physician Real Estate Services Administrator Dermatology 07/21/22 Brea Quinn APRN CONTAINER PACKER OPERATOR 500 [place] [address] Nurse Practitioner Dermatology 09/21/22 Brea Quinn APRN CONTAINER PACKER OPERATOR [address] [place] [address] Assigned Surgical Provider 10/09/22 [place] [address] [place] [address] [address] Assigned Musculoskeletal Provider 10/09/22 Alfonso Renteria MD 5775 [facility] 200 [place], [place] 696966 Assigned Neuroscience Provider 04/02/23 Radha Lomeli APRN CONTAINER PACKER OPERATOR [address] [place] [address] Assigned Heart and Vascular Provider 05/28/23 Jelena David OD [address] [facility] [place] [address] Ophthalmology 06/15/23 Pao Joseph, RN Personal Advocate & Liaison (PAL) Nurse 08/01/23 Esha Grimm PA-C [address] [place] [address] Assigned PCP 07/16/23 Valery Veronica PA-C [address] [place] [address] 978865 Physician Real Estate Services Administrator Dermatology 09/19/23 Rey Tay MD [address] [place] [address] Gastroenterology 09/20/23 Rocky Zepeda DO [address] [place] [address] Physician Gastroenterology 09/20/23 Philip Dumont MD [address] [place] [address] 611195 Physician Ophthalmology 09/22/23 documented as of this encounter
--- OUTSIDE RECORDS SUMMARY | 2023-10-28 16:33 | XMS_ITS | Encounter Summary ---
Author Name Unknown Organization [place] Address [address] [place] [address] Care Team Providers Care Delimber Operator Name Role Phone ThangKendrickDiana T [facility] Unavailable Rain Galaviz-C Unavailable [phone] Tavia Wyatt MD Unavailable Unavailable Erica Farrell APRN PRODUCT TEST SPECIALIST Unavailable Rich Barrett MD Unavailable Neil Kent MD Unavailable Diana Desir [facility] Unavailable [phone] Livan Sharif MD Unavailable Catherine Cm MD Unavailable + Valery Veronica-C Unavailable [phone] Brea Quinn BEAM HOUSE INSPECTOR PRODUCT TEST SPECIALIST Unavailable [phone] Brea Quinn BEAM HOUSE INSPECTOR PRODUCT TEST SPECIALIST Unavailable Jose Francisco Johnson MD Unavailable Alfonso Renteria MD Unavailable + [phone] Esha Grimm PA-C Primary Care Provider [phone] Radha Lomeli BEAM HOUSE INSPECTOR PRODUCT TEST SPECIALIST Unavailable FrankieJelena OD Unavailable Pao Joseph RN Unavailable Unavailable Esah Grimm PA-C Unavailable [phone] Valery Veronica PA-C Unavailable Rey Tay MD Unavailable DuaneRocky Unavailable Philip Dumont MD Unavailable [phone] Reason for Visit * Reason Onset Date Comments Appointment 10/25/2023 Encounter Details Date Type Department Care Team (Late st Contact Info) Description 10/25/2023 Telephone [facility] Gastroenterology Clinic [address] [place] [address] Meredith Carrera PA-C [address] [place] [address] Appointment Social History Tobacco Use Types Packs/Day [...] often do you attend chur ch or synagogue services? 1 to 4 times per year 03/10/2023 Do you belong to any clubs o r organizations such as hoahaoism groups, unions, fraternal or athletic groups, [...] Answer Date Recorded PHQ-2 Score 0 10/25/2023 [facility] - Occupational Stress Questionnaire Answer [...] exercise at this level? 30 min 03/10/2023 [place] Depression Scale Answer Date Recorded [place] Depression Score 5 01/14/2021 Last EPDS Self [...] Miscellaneous Notes * Telephone Encounter - Natali Huynh - 10/25/2023 1:51 PM CDT Left Voicemail (2nd Attempt) for the patient to call back and schedule the following: Appointment type: Return ESO Provider: Meredith Troncoso Return date: 01/12/24 Specialty phone number: [phone] Additional appointment(s) needed: Additonal Notes: documented in this encounter Plan of Treatment Upcoming Encounters Date Type Department Care Team (Late st Contact Info) Description 11/01/2023 8:[address] [facility] Imaging [address] [place] [address] Lauren Claudio PA-C [phone] [place] [address] [phone] 11/03/2023 8:00 AM CDT Office Visit [address] [phone] Valery Veronica PA-C 909 [place] [address] 11/29/2023 8:00 AM CDT Office Visit [facility] [address] [place] [phone] Esha Grimm PA-C [address] [place] [phone] 12/19/2023 11:30 AM CDT Hospital Encounter [address] [place] [phone] Rocky Zepeda DO 500 [place] [address] 12/19/2023 11:30 AM CDT - 12/19/2023 12:00 PM CDT Surgery [address] [phone] Rocky Zepeda DO 500 [place], [place] [address] Esophagoscopy, gastroscopy, duodenoscopy (EGD), combined 01/02/2024 8:00 AM CDT Office Visit [address] [phone] Lauren Claudio PA-C [address] [place], [place] [phone] Kelli Perez MD [address] [place] [address] [phone] Scheduled Procedures Name Priority Associated Diagnoses Date/Ti nj ESOPHAGOGASTRODUODENOSCOPY Eosinophilic esophagitis Esophageal dysphagia 12/19/2023 11:30 AM CDT documented as of this encounter Visit Diagnoses Not on filedocumented in this encounter Additional Health Concerns Assessment Noted Time PHQ-9 Depression Total Score: 4 06/20/20 23 8:40 AM OUTPATIENT PHLEBOTOMIST documented as of this encounter Care Teams Delimber Operator Relationship Specialty Start Date End Date Esha Grimm PA-C [address] [place] [phone] PCP - General Family Medicine 05/04/23 Diana Desir, [facility] [address] [place] [address] Pharmacist Pharmacist 04/17/21 Rain Galavzi PA-C [address] [place] [address] [address] [place] [address] Physician Hand Flatwork Finisher Dermatology 04/28/21 Tavia Wyatt MD [address] [place] [address] [place] [address] Dermatology 07/14/21 Erica Farrell APRN [facility] [address] [place] [address] Nurse Practitioner Cardiovascular Disease 09/09/21 Rich Barrett MD [address] 348445 Physician Ophthalmology 01/21/22 Neil Kent MD 500 [place], [place] 82[address] Dermatology 02/24/22 Diana Desir, [facility] [address] [place] [address] Assigned MTM Pharmacist 04/07/22 Livan Sharif MD [address] [place] [address] Cardiovascular Disease 05/14/22 Catherine Cm MD 6405 [facility] [address] [place] [address] Cardiovascular Disease 07/21/22 Valery Veronica, PAUcheC [address] [place] [address] Physician Hand Flatwork Finisher Dermatology 07/21/22 Brea Quinn APRN PRODUCT TEST SPECIALIST [address] [place] [address] Nurse Practitioner Dermatology 09/21/22 Brea Quinn APRN PRODUCT TEST SPECIALIST [address] [place] [address] Assigned Surgical Provider 10/09/22 [place] [address] [place] [address] Assigned Musculoskeletal Provider 10/09/22 Alfonso Renteria MD 5775 [facility] 200 [place], [place] 478586 Assigned Neuroscience Provider 04/02/23 Rdaha Lomeli APRN PRODUCT TEST SPECIALIST [address] [place] [address] [place] [address] Assigned Heart and Vascular Provider 05/28/23 Jelena David OD 3305 [facility] [place] [address] MD Ophthalmology 06/15/23 Pao Joseph, RN Personal Advocate & Liaison (PAL) Nurse 08/01/23 Esha Grimm PA-C [address] [place] [address] Assigned PCP 07/16/23 Valery Veronica PA-C 909 [place] [address] Physician Hand Flatwork Finisher Dermatology 09/19/23 Rey Tay MD [address] [place] [address] Gastroenterology 09/20/23 Rocky Zepeda DO [address] [place] [address] 089555 Physician Gastroenterology 09/20/23 Philip Dumont MD [address] [place] [address] Physician Ophthalmology 09/22/23 documented as of this encounter
--- OUTSIDE RECORDS SUMMARY | 2023-10-28 16:33 | XMS_ITS | Encounter Summary ---
Author Name Unknown Organization [facility] Address [address] [place] [id number] Care Team Providers Care Project Accountant Name Role Phone ThangKendrickDiana T [facility] Unavailable Rain Galaviz-C Unavailable Tavia Wyatt MD Unavailable Unavailable Erica Farrell APRN BILLET CUTTER Unavailable Rich Barrett MD Unavailable Neil Kent MD Unavailable Diana Desir [facility] Unavailable [phone] Livan Sharif MD Unavailable Catherine Cm MD Unavailable + Valery Veronica-C Unavailable [phone] Brea Quinn PHYSICIAN INDUSTRIAL BILLET CUTTER Unavailable Brea Quinn PHYSICIAN INDUSTRIAL BILLET CUTTER Unavailable Jose Francisco Johnson MD Unavailable Alfonso Renteria MD Unavailable + [phone] Esha Grimm PA-C Primary Care Provider Radha Lomeli PHYSICIAN INDUSTRIAL BILLET CUTTER Unavailable [phone] Jelena David OD Unavailable Pao Joseph RN Unavailable Unavailable Alfa Eshalincoln Medina PA-C Unavailable [phone] Valery Veronica PA-C Unavailable [phone] Rey Tay MD Unavailable Rocky Zepeda Unavailable Philip Dumont MD Unavailable [phone] Reason for Referral * Diagnostic Imaging Ultrasound (Routine) - Pending Review Specialty Diagnoses / Procedures Referred By Contac t Referred To Contact Radiology. Diagnoses Epigastric pain Procedures US Abdomen Limited Lauren Claudio PA-C [address] [place] [address] Referral ID Status Reason Start Date Expiration Date V isits Requested Visits Authorized [id number] Pending Review 10/27/2023 10/26/2024 1 1 Reason for Visit * Reason Comments Abdominal Pain Pt started some leonor min has been experiencing a weird/swollen tongue sensation Encounter Details Date Type Department Care Team (Late st Contact Info) Description 10/27/2023 4:00 PM CDT Office Visit [address] [phone] Lauren Claudio PA-C [id number] [place] [phone] Epigastric pain (Primary Dx); Eosinophilic esophagitis; Hiatal hernia; Anxiety; Vitamin deficiency; Breast tenderness; Dizziness; Shakiness Social History Tobacco Use Types Packs/Day Years [...] do you attend chur or cheondoism services? 1 to 4 times per year 03/10/2023 Do you belong to any clubs o r organizations such as mosque groups, unions, fraternal or athletic groups, [...] Answer Date Recorded PHQ-2 Score 0 10/25/2023 [facility] Occupational Stress Questionnaire [...] exercise at this level? 30 min 03/10/2023 Reading Depression Scale Answer Date Recorded Reading Depression Score 5 01/14/2021 Last EPDS Self [...] Mass Index 29.5 10/27/2023 3:46 PM CDT documented in this encounter Patient Instructions * Patient Instructions* Lauren Claudio PA-C - 10/27/2023 4:00 PM CDT Can try famotidine (Pepcid) for stomach pain. documented in this encounter Progress Notes * Lauren Claudio PA-C - 10/27/2023 4:00 PM CDT Assessment & Plan Epigastric pain Patient has recent diagnosis of eosinophilic esophagitis. She has seen GI and nutrition. Following an elimination diet. She is taking high dose vitamins (in a multivitamin) for the past 2 weeks. Checking levels today toensure not causing symptoms. IgA also obtained as patient has systemic symptoms that are unexplained and seem to be inflammatoryin nature. Checking ESR and CRP as well. She felt like her tongue was enlarged yesterday and it was not. Unsure of this cause. - Vitamin A; Future - Vitamin D Deficiency; Future - Vitamin B6; Future - Vitamin B12; Future - Vitamin E; Future - Vitamin K; Future - Comprehensive metabolic panel (BMP + Alb, Alk Phos, ALT, AST, Total. Bili, TP); Future - US Abdomen Limited; Future - CRP, inflammation; Future - ESR: Erythrocyte sedimentation rate; Future - IgA; Future - Lipase; Future - Vitamin A - Vitamin D Deficiency - Vitamin B6 - Vitamin B12 - Vitamin E - Vitamin K - Comprehensive metabolic panel (BMP + Alb, Alk Phos, ALT, AST, Total. Bili, TP) - CRP, inflammation - ESR: Erythrocyte sedimentation rate - IgA - Lipase Eosinophilic esophagitis Following GI. Hiatal hernia Noted on recent endoscopy. Repeat in December. Anxiety Refilled for patient. 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 Last refilled in July. - LORazepam (ATIVAN) 0.5 MG tablet; Take 1 tablet (0.5 mg) by mouth daily as needed for anxiety Vitamin deficiency Using high dose vitamins. Checking labs as noted above to ensure she is not overdosing with vitamins. Breast tenderness One of the systemic symptoms that continues to be unexplained. - CRP, inflammation; Future - ESR: Erythrocyte sedimentation rate; Future - IgA; Future - CRP, inflammation - ESR: Erythrocyte sedimentation rate - IgA Dizziness One of the systemic symptoms that continues to be unexplained. - CRP, inflammation; Future - ESR: Erythrocyte sedimentation rate; Future - IgA; Future - CRP, inflammation - ESR: Erythrocyte sedimentation rate - IgA Shakiness One of the systemic symptoms that continues to be unexplained. - CRP, inflammation; Future - ESR: Erythrocyte sedimentation rate; Future - IgA; Future - CRP, inflammation - ESR: Erythrocyte sedimentation rate - IgA Review of external notes as documented elsewhere in note Review of the result(s) of each unique test - as noted above Ordering of each unique test 41 minutes spent by me on the date of the encounter doing chart review, history and exam, documentation and further activities per the note Subjective Kim is a 23 year old, presenting for the following health issues: Abdominal Pain (Pt started some vitamin has been experiencing a weird/swollen tongue sensation ) 10/27/2023 3:45 PM Additional Questions Roomed by AT History of Present Illness Reason for visit: Stomach/Digestive System Symptom onset: More than a month Symptom intensity: Moderate Symptom progression: Staying the same She eats 2-3 servings of fruits and vegetables daily.She consumes 0 sweetened beverage(s) daily.Sheexercises with enough effort to increase her heart rate 9 or less minutes per day. She exercises with enough effort to increase her heart rate 3 or less days per week. She is taking medications regularly. Pain History: When did you first notice your pain? 1 month Have you seen anyone else for your pain? Yes - Gastro How has your pain affected your ability to work? 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 Abdominal/Flank Pain Onset/Duration: 1 month Description: Character: Sharp, Stabbing, and Burning Location: epigastric region yovani-umbilical region right flank left flank Radiation: Shoulder and chest Intensity: moderate Progression of Symptoms: same and intermittent Accompanying Signs & Symptoms: Fever/Chills: YES - felt warm Gas/Bloating: YES - severe Nausea: YES Vomitting: No Diarrhea: YES Constipation: No Dysuria or Hematuria: No History: Trauma: patient diagnosed with EOE and hiatal hernia with endoscopy from September 2022, has repeat endoscopy in December Previous similar pain: Yes - cyst on ovary burst - same sensation as the L side pain currently experiencing Previous tests done: none Precipitating factors: Does the pain change with: Food: No Bowel Movement: No Urination: No Other factors: No Therapies tried and outcome: None No LMP recorded (lmp unknown). (Menstrual status: IUD). She reports a sharp and stabbing pain in the right upper abdomen She reports yesterday she felt her tongue was enlarged (it looked normal but felt swollen and tingly), tightness in the chest and palpitations. Objective BP 101/57 (BP Location: Left arm, Patient Position: Chair, Cuff Size: Adult Regular) Pulse 65 Temp 98 ??F (36.7 ??C) (Oral) Resp 10 Ht 1.676 m (5' 6) Wt 82.9 kg (182 lb 12.8 oz) LMP (LMPUnknown) SpO2 99% BMI 29.50 kg/m?? Body mass index is 29.5 kg/m??. Physical Exam GENERAL: No acute distress HEENT: Normocephalic, tongue normal in size without swelling NEURO: Alert and non-focal Results for orders placed or performed in visit on 10/27/23 (from the past 24 hour(s)) ESR: Erythrocyte sedimentation rate Result Value Ref Range Erythrocyte Sedimentation Rate 8 0 - 20 mm/hr Signed Electronically by: Lauren Claudio PA-C documented in this encounter Plan of Treatment Upcoming Encounters Date Type Department Care Team (Late st Contact Info) Description 11/01/2023 8:[address] [facility] [address] [phone] Lauren Claudio PA-C [address] [place] [address] 11/03/2023 8:00 AM CDT Office Visit [address] [phone] Valery Veronica PA-C [address] [place], [place] [phone] 11/29/2023 8:00 AM CDT Office Visit [address] [phone] Esha Grimm PA-C [id number] [place] [phone] 12/19/2023 11:30 AM CDT Hospital Encounter [address] [phone] Rocky Zepeda DO [address] [place], [place] [address] 12/19/2023 11:30 AM CDT - 12/19/2023 12:00 PM CDT Surgery [address] [phone] Rocky Zepeda DO [address] [place], [place] [phone] Esophagoscopy, gastroscopy, duodenoscopy (EGD), combined 01/02/2024 8:00 AM CDT Office Visit [facility] [address] [phone] Lauren Claudio PA-C [address] [place] [address] [phone] Kelli Perez MD [address] [place] [id number] Pending Results Name Type Priority Associated Diagnoses Date /Time Vitamin A Lab Routine Epigastric pain 10/27/2023 4:33 PM CDT Vitamin D Deficiency Lab Routine Epigastric pain 10/27/2023 4:33 PM CDT Vitamin B6 Lab Routine Epigastric pain 10/27/2023 4:33 PM CDT Vitamin B12 Lab Routine Epigastric pain 10/27/2023 4:33 PM CDT Vitamin E Lab Routine Epigastric pain 10/27/2023 4:33 PM CDT Vitamin K Lab Routine Epigastric pain 10/27/2023 4:33 PM CDT Comprehensive metabolic panel (BMP + Alb, Alk Phos, ALT, AST, Total. Bili, TP) Lab Routine Epigastric pain 10/27/2023 4:33 PM CDT CRP, inflammation Lab Routine Epigastric pain Breast tenderness Dizziness Shakiness 10/27/2023 4:33 PM CDT IgA Lab Routine Epigastric pain Breast tenderness Dizziness Shakiness 10/27/2023 4:33 PM CDT Lipase Lab Routine Epigastric pain 10/27/2023 4:33 PM CDT Scheduled Orders Name Type Priority Associated Diagnoses Orde r Schedule Vitamin A Lab Routine Epigastric pain Expected: 10/27/2023 (Approximate), Expires: 10/26/2024 Vitamin D Deficiency Lab Routine Epigastric pain Expected: 10/27/2023 (Approximate), Expires: 10/26/2024 Vitamin B6 Lab Routine Epigastric pain Expected: 10/27/2023 (Approximate), Expires: 10/26/2024 Vitamin B12 Lab Routine Epigastric pain Expected: 10/27/2023 (Approximate), Expires: 10/26/2024 Vitamin E Lab Routine Epigastric pain Expected: 10/27/2023 (Approximate), Expires: 10/26/2024 Vitamin K Lab Routine Epigastric pain Expected: 10/27/2023 (Approximate), Expires: 10/26/2024 Comprehensive metabolic panel (BMP + Alb, Alk Phos, ALT, AST, Total. Bili, TP) Lab Routine Epigastric pain Expected: 10/27/2023 (Approximate), Expires: 10/26/2024 US Abdomen Limited Imaging Routine Epigastric pain Expected: 10/27/2023 (Approximate), Expires: 10/26/2024 CRP, inflammation Lab Routine Epigastric pain Breast tenderness Dizziness Shakiness Expected: 10/27/2023 (Approximate), Expires: 10/26/2024 IgA Lab Routine Epigastric pain Breast tenderness Dizziness Shakiness Expected: 10/27/2023 (Approximate), Expires: 10/26/2024 Lipase Lab Routine Epigastric pain Expected: 10/27/2023 (Approximate), Expires: 10/26/2024 Scheduled Procedures Name Priority Associated Diagnoses Date/Ti me ESOPHAGOGASTRODUODENOSCOPY Eosinophilic esophagitis Esophageal dysphagia 12/19/2023 11:30 AM CDT documented as of this encounter Procedures Procedure Name Priority Date/Time Associated Diagnosis Comments ERYTHROCYTE SEDIMENTATION RATE AUTO Routine 10/27/2023 4:33 PM CDT Epigastric pain Breast tenderness Dizziness Shakiness documented in this encounter Results * ESR: Erythrocyte sedimentation rate (10/27/2023 4:33 PM CDT) Erythrocyte Sedimentation Rate 8 0 - 20 mm/hr 10/27/2023 4:44 PM CDT [facility] Blood BLOOD SPECIMEN / Unknown Venipuncture / Unknown 10/27/2023 4:33 PM CDT 10/27/2023 4:33 PM CDT Lauren Claudio PA-C LAB - BLOOD ORDERA BLES [facility] [id number] [place] [address] (no room number, 1st floor of clinic) [place] [address], [facility] [phone] documented in this encounter Visit Diagnoses Diagnosis Epigastric pain- Primary Abdominal pain, epigastric Eosinophilic esophagitis Hiatal hernia Diaphragmatic hernia without mention of obstruction or gangrene Anxiety Anxiety state, unspecified Vitamin deficiency Unspecified vitamin deficiency Breast tenderness Mastodynia Dizziness Dizziness and giddiness Shakiness Abnormal involuntary movements Eosinophilic esophagitis Esophageal dysphagia Dysphagia, pharyngoesophageal phase documented in this encounter Additional Health Concerns Assessment Noted Time PHQ-9 Depression Total Score: 4 06/20/20 23 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 documented as of this encounter Care Teams Project Accountant Relationship Specialty Start Date End Date Esha Grimm PA-C [address] [place] [phone] PCP - General Family Medicine 05/04/23 Diana Desir, [facility] [address] [place] [address] Pharmacist Pharmacist 04/17/21 Rain Galaviz PA-C [address] [place] [address] [address] [address] Physician Bakery Sales Clerk Dermatology 04/28/21 Tavia Wyatt MD [address] [place] [address] [address] [id number] Dermatology 07/14/21 Erica Farrell APRN [facility] [address] [id number] Nurse Practitioner Cardiovascular Disease 09/09/21 Rich Barrett MD [address] [place] [address], [facility] [address] [place], [place] [address] Physician Ophthalmology 01/21/22 Neil Kent MD [address] [place] [address] Dermatology 02/24/22 Diana Desir, [facility] [place] [address] Assigned MTM Pharmacist 04/07/22 Livan Sharif MD [address] [address] Cardiovascular Disease 05/14/22 Catherine Cm MD [address] [address] Cardiovascular Disease 07/21/22 Valery Veronica PA-C [address] [place] [address] Physician Bakery Sales Clerk Dermatology 07/21/22 Brea Quinn APRN BILLET CUTTER [address] [place] [address] Nurse Practitioner Dermatology 09/21/22 Brea Quinn APRN BILLET CUTTER [address] [place] [address] Assigned Surgical Provider 10/09/22 [place] [address] [facility] [address] [place] [address] Assigned Musculoskeletal Provider 10/09/22 Alfonso Renteria MD [address] [facility] [address] [place], [place] [address] Assigned Neuroscience Provider 04/02/23 Radha Lomeli APRN BILLET CUTTER [address] [facility] [address] [place] [address] Assigned Heart and Vascular Provider 05/28/23 Jelena David OD [address] [facility] [address] Ophthalmology 06/15/23 Pao Joseph, [facility] Personal Advocate & Liaison (PAL) Nurse 08/01/23 Esha Grimm PA-C [address] [place] [phone] Assigned PCP 07/16/23 Valery Veronica PA-C [address] [place] [address] Physician Bakery Sales Clerk Dermatology 09/19/23 Rey Tay MD [address] [place] [address] MD Gastroenterology 09/20/23 Rocky Zepeda DO [address] [place] [address] Physician Gastroenterology 09/20/23 Philip Dumont MD [address] [place] [address] Physician Ophthalmology 09/22/23 documented as of this encounter
--- OUTSIDE RECORDS SUMMARY | 2023-10-28 16:33 | XMS_ITS | Encounter Summary ---
Author Name Unknown Organization [place] Address [address] [place] [address] Care Team Providers Care Director Occupational Name Role Phone ThangKendrickDiana T [facility] Unavailable Rain Galaviz-C Unavailable Tavia Wyatt MD Unavailable Unavailable Erica Farrell APRN AUTOMATIC SPREADER OPERATOR Unavailable Rihc Barrett MD Unavailable Neil Kent MD Unavailable Diana Desir [facility] Unavailable [phone] Livan Sharif MD Unavailable Catherine Cm MD Unavailable + Valery Veronica-C Unavailable [phone] Brea Quinn CATERPILLAR MECHANIC AUTOMATIC SPREADER OPERATOR Unavailable Brea Quinn CATERPILLAR MECHANIC AUTOMATIC SPREADER OPERATOR Unavailable Jose Francisco Johnson MD Unavailable Alfonso Renteria MD Unavailable + [phone] Esha Grimm PA-C Primary Care Provider Radha Lomeli CATERPILLAR MECHANIC AUTOMATIC SPREADER OPERATOR Unavailable FrankieJelena OD Unavailable [phone] Pao Joseph RN Unavailable Unavailable Esha Grimm PA-C Unavailable [phone] Valery Veronica PA-C Unavailable Rey Tay MD Unavailable Duane Rocky Unavailable Philip Dumont MD Unavailable [phone] Reason for Visit * Reason Comments Consult Encounter Details Date Type Department Care Team (Latest Contact Info) Description 10/25/2023 11:30 AM CDT Virtual Visit [facility] [address] [place] [address] Nelly Mesa, RD [address] [place] [address] Eosinophilic esophagitis (Primary Dx); Esophageal dysphagia Social [...] often do you attend chur ch or pentecostal services? 1 to 4 times per year [...] Answer Date Recorded PHQ-2 Score 0 10/[facility]2023 [facility] Occupational Stress Questionnaire Answer [...] exercise at this level? 30 min 03/10/2023 [place] Depression Scale Answer Date Recorded [place] Depression Score 5 01/14/2021 Last EPDS Self [...] - Inhaled Oxygen Concentration - - Weight 83.9 kg (185 lb) 10/25/2023 11:23 AM CDT Height 167.6 cm (5' 6) 10/25/2023 11:23 AM CDT Body Mass Index 29.86 10/25/2023 11:23 AM CDT documented in this encounter Patient Instructions * Patient Instructions* Nelly Mesa, RD - 10/25/2023 11:30 AM CDT It was nice meeting you today. Below are the nutrition recommendations we discussed at your visit. Please let me know if you have any additional questions. Nutrition Recommendations Elimination diet recommendations: Follow a strict milk ingredient free and gluten free diet for at least 8 weeks before your next endoscopy. --discontinue eating austrian yogurt. Okay to have a non dairy gluten free yogurt. Read food labels to ensure that packaged foods do not contain any milk ingredients, wheat ingredient or any gluten ingredients. Pre plan meals ahead of time to help you stick to the elimination diet and also continue meal prepping ahead of time too. Can use an yolanda to help scan food labels while shopping such as [employer] or Install[employer]etizer yolanda. If eating out, then look ahead on websites to review menu items and also can call restaurants aheadof time to find out what they have that is gluten and milk free or if they are able to make adjustments to some menu items. 6. Traxo has many easy to prepare recipes look under Simple Factor recipes for the easier to prepare recipes. There are many gluten free and dairy free recipes too (look under those headings) but not all on this site are gluten and milk free. One website with some allergen free recipes is ePAR. A couple of other resources for allergy information include FAAN website at http://www.foodallergy.org and Food Allergy Initiative Website at http://www.faiusa.org. Celiac Foundation at celiac.org may have more information, ways to contact local groups for advice on gluten free restaurants in your area. 7. Avoid cross contamination of milk or gluten ingredients. Use separate toasters, cooking equipment Purchase some new cutting boards that are strictly for gluten free ingredients. Do not use the same utensils to mix or serve milk and gluten ingredient foods with milk free and gluten free ingredients. (avoid wooden utensils) Clean surfaces with hot soapy water before and after preparing gluten free and milk free meals Use gluten free milk free toothpastes, mouth rinse and lip balms. Use separate condiment jars (peanut butter, zabala, jam jars) from others (to prevent getting gluten crumbs mixed into jars/containers). 8. Continue drinking at least 64 oz (8 cups) or more water per day. Follow up 1 week after your next endoscopy. For follow up appointments, please call [phone]. Thank you, Nelly Mesa MS, RD, LD documented in this encounter Progress Notes * Nelly Mesa RD - 10/25/2023 11:30 AM CDT Virtual Visit Details Type of service: Video Visit Video Start Time: 11:35 AM Video End Time: 12:18 PM Originating Location (pt. Location): Home Distant Location (provider location): Off-site Platform used for Video Visit: [facility] Outpatient Medical Nutrition Therapy Time Spent: 43 minutes Session Type: Initial Referring Physician: Meredith Carrera PA-C Reason for RD Visit: Eosinophilic esophagitis Nutrition Assessment: Patient is a 23 year old female with history that includes EoE, esophageal dysphagia, hiatal hernia, anxiety, depression, seizure disorder. She stated that she has already started following a strict gluten free diet and mostly dairy/milk ingredient free except she has been eating austrian yogurt. She has been trying to eat better and meal prep and eat a higher protein diet. She recently started drinking [employer] protein drinks and energy booster and taking some vitamin supplements. She double checked that the supplements are gluten free, dairy free. Her protein drink container says contains milk so she call [employer] and was toldthat her drink doesn't contain any ingredients with milk but because the facility makes products with milk, they put that on the label. She has been having some stomach issues, diarrhea, burning in her stomach and some sharp pains, so she has an appt with her PCP this week. She stated that she alsohas a hiatal hernia but she just wants to double check with her PCP that nothing else is going on. Her sister has Crohn's disease. Meats and rice cause esophageal dysphagia. She was eating some gluten free chips and had some issues/pain with swallowing these recently as well. Height: Ht Readings from Last 1 Encounters: 10/25/23 1.676 m (5' 6) Weight: Wt Readings from Last 10 Encounters: 10/25/23 83.9 kg (185 lb) 10/13/23 85 kg (187 lb 6.4 oz) 10/10/23 83.9 kg (185 lb) 10/05/23 83.9 kg (185 lb) 09/07/23 84.6 kg (186 lb 8.2 oz) 08/01/23 83.9 kg (185 lb) 07/14/23 83.2 kg (183 lb 6.4 oz) 06/28/23 81.6 kg (180 lb) 06/20/23 82 kg (180 lb 11.2 oz) 06/17/23 81.6 kg (180 lb) BMI: Estimated body mass index is 29.86 kg/m?? as calculated from the following: Height as of this encounter: 1.676 m (5' 6). Weight as of this encounter: 83.9 kg (185 lb). Diet Recall: (some usual/recent meals/snacks/beverages): she is trying to eat a high protein diet, following a GF diet Meal Food Breakfast Overnight oats, austrian yogurt with GF granola and fruit or eggs or 1/2 c GF oats with 1 c almond milk, asael seeds, cinnamon and 1/8 tsp vanilla extract, 2 scoop protein powder Lunch Leftovers from dinner or salad Dinner Lean grass fed beef, seasoned, avocado, onions, tomatoes, cilantro, garlic and olive oil andlime juice with red pepper with GF chip or chicken/ground turkey, veggies, brown rice Snacks Fruit and vegs Beverages >64 oz Water, puts aloe vera from herballife, fruit herbalife energy tea occas (pkt vitamins with tea, aloe vera). Labs: Last Comprehensive Metabolic Panel: Sodium Date Value Ref Range Status 09/07/2023 138 135 - 145 mmol/L Final Comment: Reference intervals for this test were updated on 04/05/2023 to more accurately reflect our healthypopulation. There may be differences in the flagging of prior results with similar values performedwith this method. Interpretation of those prior results can be made in the context of the updated reference intervals. 12/27/2020 134 133 - 144 mmol/L Final Potassium Date Value Ref Range Status 09/07/2023 3.7 3.4 - 5.3 mmol/L Final 05/13/2022 4.1 3.4 - 5.3 mmol/L Final 12/27/2020 3.9 3.4 - 5.3 mmol/L Final Chloride Date Value Ref Range Status 09/07/2023 100 98 - 107 mmol/L Final 05/13/2022 105 94 - 109 mmol/L Final 12/27/2020 103 94 - 109 mmol/L Final Carbon Dioxide Date Value Ref Range Status 12/27/2020 28 20 - 32 mmol/L Final Carbon Dioxide (CO2) Date Value Ref Range Status 09/07/2023 26 22 - 29 mmol/L Final 05/13/2022 26 20 - 32 mmol/L Final Anion Gap Date Value Ref Range Status 09/07/2023 12 7 - 15 mmol/L Final 05/13/2022 5 3 - 14 mmol/L Final 12/27/2020 3 3 - 14 mmol/L Final Glucose Date Value Ref Range Status 09/07/2023 90 70 - 99 mg/dL Final 05/13/2022 78 70 - 99 mg/dL Final 12/27/2020 76 70 - 99 mg/dL Final Urea Nitrogen Date Value Ref Range Status 09/07/2023 12.9 6.0 - 20.0 mg/dL Final 05/13/2022 10 7 - 30 mg/dL Final 12/27/2020 6 (L) 7 - 30 mg/dL Final Creatinine Date Value Ref Range Status 09/07/2023 0.73 0.51 - 0.95 mg/dL Final 12/27/2020 0.63 0.52 - 1.04 mg/dL Final GFR Estimate Date Value Ref Range Status 09/07/2023 >90 >60 mL/min/1.73m2 Final 12/27/2020 >90 >60 mL/min/[1.73_m2] Final Comment: Non GFR Calc Starting 06/27/2018, serum creatinine based estimated GFR (eGFR) will be calculated using the Chronic Kidney Disease Epidemiology Collaboration (CKD-EPI) equation. Calcium Date Value Ref Range Status 09/07/2023 9.5 8.6 - 10.0 mg/dL Final 12/27/2020 9.1 8.5 - 10.1 mg/dL Final CBC RESULTS: Recent Labs Lab Test 09/07/23 1859 WBC 5.7 RBC 5.11 HGB 13.4 HCT 41.3 MCV 81 MCH 26.2* MCHC 32.4 RDW 12.6 PLT 233 Pertinent Medications/vitamin and mineral supplements: Current Outpatient Medications Medication Sig Dispense Refill clindamycin (CLEOCIN T) 1 % external lotion Apply topically 2 times daily 60 mL 1 ketoconazole (NIZORAL) 2 % external shampoo Use [...] healed then stop 80 g 2 No current facility-administered medications for this visit. Food Allergies: NKFA MALNUTRITION: % Weight Loss: None noted % Intake: No decreased intake noted Subcutaneous Fat Loss: None observed Muscle Loss: None observed Fluid Retention: None noted Malnutrition Diagnosis: Patient does not meet two of the above criteria necessary for diagnosing malnutrition In Context of: Chronic illness or disease Nutrition Prescription: Nutrition Education Nutrition Intervention Provided diet education for EoE and elim diets for EoE in detail. At this time encouraged her to continue strict gluten free diet and follow strict milk ingredient free diet for 8 weeks. Answered patient's questions. Patient verbalized understanding of education provided. See Goals below. Educational Materials Provided: NCM: milk allergy nutrition therapy, tips and GF nutrition therapy and celiac label reading Goals: Elimination diet recommendations: Follow a strict milk ingredient free and gluten free diet for at least 8 weeks before you have another endoscopy. --discontinue eating austrian yogurt. Okay to have a non dairy gluten free yogurt. Read food labels to ensure that packaged foods do not contain any milk ingredients, wheat ingredient or any gluten ingredients. Pre plan meals ahead of time to help you stick to the elimination diet and also continue meal prepping ahead of time too. Can use an yolanda to help scan food labels while shopping such as [employer] or Install[employer]et[employer] yolanda. If eating out, then look ahead on websites to review menu items and also can call restaurants aheadof time to find out what they have that is gluten and milk free or if they are able to make adjustments to some menu items. 6. Traxo has many easy to prepare recipes look under Simple Factor recipes for the easier to prepare recipes. There are many gluten free and dairy free recipes too (look under those headings) but not all on this site are gluten and milk free. One website with some allergen free recipes is ePAR. A couple of other resources for allergy information include FAAN website at http://www.foodallergy.org and Food Allergy Initiative Website at http://www.faiusa.org. Celiac Foundation at celiac.org may have more information, ways to contact local groups for advice on gluten free restaurants in your area. 7. Avoid cross contamination of milk or gluten ingredients. Use separate toasters, cooking equipment Purchase some new cutting boards that are strictly for gluten free ingredients. Do not use the same utensils to mix or serve milk and gluten ingredient foods with milk free and gluten free ingredients. (avoid wooden utensils) Clean surfaces with hot soapy water before and after preparing gluten free and milk free meals Use gluten free milk free toothpastes, mouth rinse and lip balms. Use separate condiment jars (peanut butter, zabala, jam jars) from others (to prevent getting gluten crumbs mixed into jars/containers). 8. Continue drinking at least 64 oz (8 cups) or more water per day. Nutrition Monitoring and Evaluation: Will monitor adherence to nutrition recommendations at future RD visits. Further Medical Nutrition Therapy: Follow-up 1 week after her next endoscopy Patient was encouraged to contact RD with any further questions. Nelly Mesa MS, RD, LD documented in this encounter Nursing Notes * Kiah Dominguez - 10/25/2023 11:30 AM CDT Is the patient currently in the state of [place]? YES Visit mode:VIDEO If the visit is dropped, the patient can be reconnected by: VIDEO VISIT: Text to cell phone: Telephone Information: Will anyone else be joining the visit? NO (If patient encounters technical issues they should call [phone] :[phone]) How would you like to obtain your AVS? MyChart Are changes needed to the allergy or medication list? No Are refills needed on medications prescribed by this physician? NO Reason for visit: Consult Kiah Dominguez VVF documented in this encounter Plan of Treatment Upcoming Encounters Date Type Department Care Team (Late st Contact Info) Description 11/01/2023 8:00 AM CDT Appointment [facility] [address] [place] [address] Lauren Claudio, [place] [address] [place] [address] 11/03/2023 8:00 AM CDT Office Visit [address] [phone] Valery Veronica PA-C [address] [place] [address] 11/29/2023 8:00 AM CDT Office Visit [facility] [address] [place] [phone] Esha Grimm PA-C [address] [place] [phone] 12/19/2023 11:30 AM CDT Hospital Encounter [address] [phone] Rocky Zepeda DO [address] [place] [address] 12/19/2023 11:30 AM CDT - 12/19/2023 12:00 PM CDT Surgery [address] [phone] Rocky Zepeda DO [address] [place] [address] Esophagoscopy, gastroscopy, duodenoscopy (EGD), combined 01/02/2024 8:00 AM CDT Office Visit [facility] [address] [place] [phone] Lauren Claudio PA-C [address] [place], [place] [phone] Kelli Perez MD [address] [facility] [address] [place], [place] [phone] Scheduled Procedures Name Priority Associated Diagnoses Date/Ti va ESOPHAGOGASTRODUODENOSCOPY Eosinophilic esophagitis Esophageal dysphagia 12/19/2023 11:30 AM CDT documented as of this encounter Visit Diagnoses Diagnosis Eosinophilic esophagitis- Primary Esophageal dysphagia Dysphagia, pharyngoesophageal phase Eosinophilic esophagitis Esophageal dysphagia Dysphagia, pharyngoesophageal phase documented in this encounter Additional Health Concerns Assessment Noted Time PHQ-9 Depression Total Score: 4 06/20/20 23 8:40 AM 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 documented as of this encounter Care Teams Director Occupational Relationship Specialty Start Date End Date Esha Grimm PA-C [address] [place] [phone] PCP - General Family Medicine 05/04/23 Diana Desir, [facility] [place] [address] Pharmacist Pharmacist 04/17/21 Rain Galaviz PA-C [address] [place] [address] [address] [place] [address] Physician Broom Handle Dipper Dermatology 04/28/21 Tavia Wyatt MD [address] [place] [address] [address] [place] [address] Dermatology 07/14/21 Erica Farrell APRN AUTOMATIC SPREADER OPERATOR [address] [place] [id number] Nurse Practitioner Cardiovascular Disease 09/09/21 Rich Barrett MD [address] [facility] [address] [place], [place] [address] Physician Ophthalmology 01/21/22 Neil Kent MD [address] [place], [place] [phone] Dermatology 02/24/22 Diana Desir, [facility] [address] [place], [place] [address] Assigned MTM Pharmacist 04/07/22 Livan Sharif MD [address] [place], [place] [address] Cardiovascular Disease 05/14/22 Catherine Cm MD [address] [facility] [place], [place] [address] Cardiovascular Disease 07/21/22 Valery Veronica PAUcheC [address] [place] [phone] Physician Broom Handle Dipper Dermatology 07/21/22 Brea Quinn APRN AUTOMATIC SPREADER OPERATOR [address] [place], [place] [phone] Nurse Practitioner Dermatology 09/21/22 Brea Quinn APRN AUTOMATIC SPREADER OPERATOR [address] [place], [place] [address] Assigned Surgical Provider 10/09/22 [place] [address] [address] [facility] [address] [place], [place] [phone] Assigned Musculoskeletal Provider 10/09/22 Alfonso Renteria MD [address] [facility] [address] [place] [address] Assigned Neuroscience Provider 04/02/23 Radha Lomeli APRN AUTOMATIC SPREADER OPERATOR [address] [address] Assigned Heart and Vascular Provider 05/28/23 Jelena David OD [address] [facility] [address] [place] [phone] Ophthalmology 06/15/23 Pao Joseph, VJ Personal Advocate & Liaison (PAL) Nurse 08/01/23 Esha Grimm PA-C [address] [place] [phone] Assigned PCP 07/16/23 Valery Veronica PA-C [address] [place] [id number] Physician Broom Handle Dipper Dermatology 09/19/23 Rey Tay MD [address] [place] [phone] Gastroenterology 09/20/23 Rocky Zepeda DO [address] [place] [address] Physician Gastroenterology 09/20/23 Philip Dumont MD [address] [place] [phone] Physician Ophthalmology 09/22/23 documented as of this encounter
--- OUTSIDE RECORDS SUMMARY | 2023-10-28 16:33 | XMS_ITS | Encounter Summary ---
Author Name Unknown Organization [place] Address [address] [place] [address] Care Team Providers Care Welt Insole Channeler Name Role Phone ThangKendrickDiana T [facility] Unavailable [phone] Rain Galaviz-C Unavailable [phone] Tavia Wyatt MD Unavailable Unavailable Erica Farrell APRN ELECTRICAL POWER STATION TECHNICIAN Unavailable Rich Barrett MD Unavailable Neil Kent MD Unavailable Diana Desir [facility] Unavailable [phone] Livan Sharif MD Unavailable Catherine Cm MD Unavailable + Valery Veronica-C Unavailable [phone] Brea Quinn PARIMUTUEL TICKET SELLER ELECTRICAL POWER STATION TECHNICIAN Unavailable Brea Quinn PARIMUTUEL TICKET SELLER ELECTRICAL POWER STATION TECHNICIAN Unavailable Jose Francisco Johnson MD Unavailable Alfonso Renteria MD Unavailable + [phone] Esha Grimm PA-C Primary Care Provider [phone] Radha Lomeli PARIMUTUEL TICKET SELLER ELECTRICAL POWER STATION TECHNICIAN Unavailable [phone] FrankieJelena OD Unavailable Pao Joseph RN Unavailable Unavailable Esha Grimm PA-C Unavailable [phone] Valery Veronica PA-C Unavailable [phone] Rey Tay MD Unavailable Duane Rocky DO Unavailable Philip Dumont MD Unavailable [phone] Encounter Details Date Type Department Care Team (Late st Contact Info) Description 10/24/2023 Telephone [facility] [address] [place] [address] Esha Grimm PA-C [address] [place] [address] Social History Tobacco Use Types [...] week 03/10/2023 How often do you attend [facility] or islam services? 1 to 4 times per year 03/10/2023 Do you belong to any clubs o r organizations such as roman catholic groups, unions, fraternal or athletic [...] Answer Date Recorded PHQ-2 Score 0 10/25/2023 [facility] - Occupational Stress Questionnaire Answer Date [...] exercise at this level? 30 min 03/10/2023 Nelson Depression Scale Answer Date Recorded Nelson Depression Score 5 01/14/2021 Last EPDS Self [...] encounter Miscellaneous Notes * Telephone Encounter - Ky Emiliana F, RN - 10/24/2023 2:35 PM CDT Pt calls. She missed an appt today. She thought it was tomorrow. She missed an appt last week, her dtr was sick. She wants to get in sooner than what the allergist can get her in with. She has stomach pains - she says she has EOE - she does see GI. She said they wanted to check her gallbladder - not sure whothey are. The pt was getting frustrated with me because she says she has explained this 3 times already. She wants to see primary. They were going to check out her pains in her stomach that come and go. She said her provider knows. She also follows with gastro. Appt was scheduled. Appointments in Next Year Oct 24, 2023 8:00 AM (Arrive by 7:40 AM) Provider Visit with [facility] [employer] ([facility] ) [phone] Oct 25, 2023 11:30 AM (Arrive by 11:15 AM) New Nutrition with Nelly Mesa RD [facility] ([facility] [place]) [phone] Oct 27, 2023 4:00 PM (Arrive by 3:40 PM) Provider Visit with [facility]O [facility] [employer] ([facility] ) [phone] Nov 03, 2023 8:00 AM (Arrive by 7:45 AM) Return Dermatology with Valery Veronica PA-C [facility] ([facility] ) [phone] November 29, 2023 8:00 AM (Arrive by 7:40 AM) Provider Visit with Esha Grimm PA-C [facility] ([facility] ) [phone] Jan 02, 2024 8:00 AM (Arrive by 7:45 AM) New Sleep Patient with Kelli Perez MD [facility] ([facility] ) [phone] documented in this encounter Plan of Treatment Upcoming Encounters Date Type Department Care Team (Late st Contact Info) Description 11/01/2023 8:00 AM CDT Appointment [facility] [address] [facility] [place] [address] Lauren Claudio PA-C [address] [place], [place] [phone] 11/03/2023 8:00 AM CDT Office Visit [address] [phone] Valery Veronica PA-C [address] [place] [address] 11/29/2023 8:00 AM CDT Office Visit [facility] [address] [place] [phone] Esha Grimm PA-C [address] [place] [phone] 12/19/2023 11:30 AM CDT Hospital Encounter [place] [address] [facility] [address] [place] [phone] Rocky Zepeda DO 500 [place], [place] [address] 12/19/2023 11:30 AM CDT - 12/19/2023 12:00 PM CDT Surgery [facility] [address] [facility] [address] [place] [phone] Rocky Zepeda DO 500 [place], [place] 8068[address] Esophagoscopy, gastroscopy, duodenoscopy (EGD), combined 01/02/2024 8:00 AM CDT Office Visit [address] [phone] Lauren Claudio PA-C [address] [place], [place] [phone] Kelli Perez MD [address] [place], [place] [address] [address] Scheduled Procedures Name Priority Associated Diagnoses Date/Ti dc ESOPHAGOGASTRODUODENOSCOPY Eosinophilic esophagitis Esophageal dysphagia 12/19/2023 11:30 AM CDT documented as of this encounter Visit Diagnoses Not on filedocumented in this encounter Additional Health Concerns Assessment Noted Time PHQ-9 Depression Total Score: 4 06/20/20 23 8:40 AM DESIGN TECHNOLOGY PROFESSOR documented as of this encounter Care Teams Welt Insole Channeler Relationship Specialty Start Date End Date Esah Grimm PA-C [address] [place] [phone] PCP - General Family Medicine 05/04/23 Diana Desir, [facility] [address] [place] [address] Pharmacist Pharmacist 04/17/21 Rain Galaviz PA-C [address] [place] [address] [address] [place] [address] Physician Train Brakeman Dermatology 04/28/21 Tavia Wyatt MD [address] [place] [address] [address] [place] [address] Dermatology 07/14/21 Erica Farrell APRN ELECTRICAL POWER STATION TECHNICIAN [address] [place] [address] Nurse Practitioner Cardiovascular Disease 09/09/21 Rich Barrett MD [address] [place] [address]3705 Physician Ophthalmology 01/21/22 Neil Kent MD [address] [place] [address] [id number] Dermatology 02/24/22 Diana Desir, [facility] [address] [place] [address] Assigned MTM Pharmacist 04/07/22 Livan Sharif MD [address] [place] [id number] Cardiovascular Disease 05/14/22 Catherine Cm MD [address] [place] 783615 Cardiovascular Disease 07/21/22 Valery Veronica PA-C 909 [place], [place] 738925 Physician Train Brakeman Dermatology 07/21/22 Brea Quinn APRN ELECTRICAL POWER STATION TECHNICIAN 500 [place], [place] [phone] Nurse Practitioner Dermatology 09/21/22 Brea Quinn APRN ELECTRICAL POWER STATION TECHNICIAN 6401 [place], [place] 281862 Assigned Surgical Provider 10/09/22 [place] [address] [address] [facility] 300 [place], [place] 837557 Assigned Musculoskeletal Provider 10/09/22 Alfonso Renteria MD 5775 [facility] 200 [place] [address] Assigned Neuroscience Provider 04/02/23 Radha Lomeli APRN ELECTRICAL POWER STATION TECHNICIAN [address] [facility] [address] [place], [place] [address] Assigned Heart and Vascular Provider 05/28/23 Jelena David OD [address] [facility] [address] [place] [phone] Ophthalmology 06/15/23 Pao Joseph, VJ Personal Advocate & Liaison (PAL) Nurse 08/01/23 Esha Grimm PA-C [address] [place] [phone] Assigned PCP 07/16/23 Valery Veronica, PAUcheC 9 [place] [address] Physician Train Brakeman Dermatology 09/19/23 Rey Tay MD [address] [place] [address] 592135 MD Gastroenterology 09/20/23 Rocky Zepeda DO [address] [place] [address] Physician Gastroenterology 09/20/23 Philip Dumont MD [address] [place] [address] 938245 Physician Ophthalmology 09/22/23 documented as of this encounter
--- OUTSIDE RECORDS SUMMARY | 2023-10-28 16:33 | XMS_ITS | Encounter Summary ---
Author Name Unknown Organization [place] Address [address] [place] [address] Care Team Providers Care Composing Machine Operator/Tender Name Role Phone ThangKendrickDiana T [facility] Unavailable Rain Galaviz-C Unavailable Tavia Wyatt MD Unavailable Unavailable Erica Farrell APRN VBA PROGRAMMER Unavailable Rich Barrett MD Unavailable Neil Kent MD Unavailable Diana Desir [facility] Unavailable [phone] Livan Sharif MD Unavailable Catherine Cm MD Unavailable + Valery Veronica-C Unavailable [phone] Brea Quinn COIL STRAPPER VBA PROGRAMMER Unavailable Brea uQinn COIL STRAPPER VBA PROGRAMMER Unavailable Jose Francisco Johnson MD Unavailable Alfonso Renteria MD Unavailable + [phone] Esha Grimm PA-C Primary Care Provider [phone] Radha Lomeli COIL STRAPPER VBA PROGRAMMER Unavailable Frankie Jelena Templetone OD Unavailable Pao Joseph RN Unavailable Unavailable Esha Grimm Adam LAYNE Unavailable [phone] Valery Veronica PA-C Unavailable [phone] Rey Tay MD Unavailable ZepedaRocky woodard Unavailable Philip Dumont MD Unavailable [phone] Reason for Visit * Reason Comments Urgent Care Pt says she's having sensation of tongue swelling and tiredness today. Pt just started new vitamins, wondering if that's the cause Encounter Details Date Type Department Care Team (Late st Contact Info) Description 10/26/2023 6:35 PM CDT Office Visit [facility] [place] [id number] [place], [place] [address] [address] Pao Mullen, COIL STRAPPER [facility] [address] [place] [address] Social History Tobacco Use Types Packs/Day Years [...] often do you attend chur ch or temple services? 1 to 4 times [...] Answer Date Recorded PHQ-2 Score 0 10/25/2023 [facility] - Occupational Stress Questionnaire Answer Date [...] exercise at this level? 30 min 03/10/2023 [place] Depression Scale Answer Date Recorded [place] Depression Score 5 01/14/2021 Last EPDS Self [...] Sign Reading Time Taken Comments Blood Pressure 105/66 10/26/2023 6:35 PM CDT Pulse 76 10/26/2023 6:35 PM CDT Temperature 36.9 ??C (98.5 ??F) 10/26/2023 6:35 PM CD T Respiratory Rate - - Oxygen Saturation 98% 10/26/2023 6:35 PM CDT Inhaled Oxygen Concentration - - Weight 83.9 kg (185 lb) 10/26/2023 6:35 PM CDT Height 167.6 cm (5' 6) 10/26/2023 6:35 PM CDT Body Mass Index 29.86 10/26/2023 6:35 PM CDT documented in this encounter Patient Instructions * Patient Instructions* Pao Mullen APRN CNP - 10/26/2023 6:35 PM CDT No results found for any visits on 10/26/23. documented in this encounter Plan of Treatment Upcoming Encounters Date Type Department Care Team (Late st Contact Info) Description 11/01/2023 8:00 AM CDT Appointment [facility] [address] [place] [phone] Lauren Claudio PA-C [address] [place] [address] 11/03/2023 8:00 AM CDT Office Visit [address] [phone] Valery Veronica PA-C [address] [place] [address] 11/29/2023 8:00 AM CDT Office Visit [facility] [address] [place] [phone] Esha Grimm PA-C [address] [place] [phone] 12/19/2023 11:30 AM CDT Hospital Encounter [address] [phone] Rocky Zepeda DO 500 [place], [place] [address]205 12/19/2023 11:30 AM CDT - 12/19/2023 12:00 PM CDT Surgery [address] [phone] Rocky Zepeda DO 500 [place], [place] [address] Esophagoscopy, gastroscopy, duodenoscopy (EGD), combined 01/02/2024 8:00 AM CDT Office Visit [facility] [place] [address] [place] [phone] Lauren Claudio PA-C [address] [place], [place] [phone] Kelli Perez MD [address] [facility] 106 [place], [place] 55[address] Scheduled Procedures Name Priority Associated Diagnoses Date/Ti ok ESOPHAGOGASTRODUODENOSCOPY Eosinophilic esophagitis Esophageal dysphagia 12/19/2023 11:30 AM CDT documented as of this encounter Visit Diagnoses Not on filedocumented in this encounter Additional Health Concerns Assessment Noted Time PHQ-9 Depression Total Score: 4 06/20/20 8:40 AM FACILITIES SUPERVISOR documented as of this encounter Care Teams Composing Machine Operator/Tender Relationship Specialty Start Date End Date Esha Grimm PA-C [address] [place] [address] PCP - General Family Medicine 05/04/23 [facility] [address] [place] [address] Pharmacist Pharmacist 04/17/21 Rain Galaviz PA-C [address] [place] [address] [address] [place] [address] Physician Career Discovery Teacher Dermatology 04/28/21 Tavia Wyatt MD [address] [place] [address] [address] [place] [address] Dermatology 07/14/21 Erica Farrell, ARLENE VBA PROGRAMMER [address] [facility] [address] [place], [place] 878[address] Nurse Practitioner Cardiovascular Disease 09/09/21 Rich Barrett MD 516 [facility] 9[address] [place], [place] 053785 Physician Ophthalmology 01/21/22 Neil Kent MD 500 [place], [place] 512375 Dermatology 02/24/22 Daina Desir, [facility] 30[address] [place], [place] 636176 Assigned MTM Pharmacist 04/07/22 Livan Sharif MD [address] [facility] [address] [place] 419[address] Cardiovascular Disease 05/14/22 Catherine Cm MD [address] [place] 247285 Cardiovascular Disease 07/21/22 Valery Veronica, PA-C 909 [place], [place] 796405 Physician Career Discovery Teacher Dermatology 07/21/22 Brea Quinn APRN VBA PROGRAMMER 500 [place], [place] 969945 Nurse Practitioner Dermatology 09/21/22 Brea Quinn APRN VBA PROGRAMMER 6401 [facility] [place] [address]22 Assigned Surgical Provider 10/09/22 [place] [address] [place] [address] Assigned Musculoskeletal Provider 10/09/22 Alfonso Renteria MD [address] [place] [address] Assigned Neuroscience Provider 04/02/23 Armani Radha ARLENE Stovall VBA PROGRAMMER [address] [place] 94[address]65 Assigned Heart and Vascular Provider 05/28/23 Jelena David OD [address] [facility] [place] [address] MD Ophthalmology 06/15/23 Pao Joseph, VJ Personal Advocate & Liaison (PAL) Nurse 08/01/23 Esha Grimm PA-C [address] [place] [phone] Assigned PCP 07/16/23 Valery Veronica PA-C [address] [place], [place] 584625 Physician Career Discovery Teacher Dermatology 09/19/23 Rey Tay MD 909 [place], [place] 066065 Gastroenterology 09/20/23 Rocky Zepeda DO [address] [place] [address] 826995 Physician Gastroenterology 09/20/23 Philip Dumont MD 6 [place] [address] Physician Ophthalmology 09/22/23 documented as of this encounter
--- OUTSIDE RECORDS SUMMARY | 2023-10-28 16:33 | XMS_ITS | Encounter Summary ---
Author Name Unknown Organization [place] Address [address] [place] [address] Care Team Providers Care Telephone Mechanic Name Role Phone ThangKendrickDiana T [facility] Unavailable Rain Galaviz-C Unavailable [phone] Tavia Wyatt MD Unavailable Unavailable Erica Farrell APRN VENEER PATCHER Unavailable Rich Barrett MD Unavailable Neil Kent MD Unavailable Daina Desir [facility] Unavailable [phone] Livan Sharif MD Unavailable Catherine Cm MD Unavailable + Valery Veronica-C Unavailable [phone] Brea Qiunn RX SPECIALIST VENEER PATCHER Unavailable Brea Quinn RX SPECIALIST VENEER PATCHER Unavailable Jose Francisco Johnson MD Unavailable Alfonso Renteria MD Unavailable + [phone] Esha Grimm PA-C Primary Care Provider Radha Lomeli RX SPECIALIST VENEER PATCHER Unavailable FrankieJelena OD Unavailable Pao Joseph RN Unavailable Unavailable Esha Grimm PA-C Unavailable [phone] Valery Veronica PA-C Unavailable [phone] Rey Tay MD Unavailable DuaneRocky Unavailable Philip Dumont MD Unavailable [phone] Reason for Visit * Reason Onset Date Comments Procedure 10/25/2023 EGD Encounter Details Date Type Department Care Team (Late st Contact Info) Description 10/25/2023 Telephone [facility] [address] [place] [address] None Procedure (EGD) Social History Tobacco Use Types Packs/Day [...] How often do you attend chur or yazidism services? 1 to 4 times per year [...] Answer Date Recorded PHQ-2 Score 0 10/25/2023 [facility] - Occupational Stress Questionnaire [...] exercise at this level? 30 min 03/10/2023 [place] Depression Scale Answer Date Recorded [place] Depression Score 5 01/14/2021 Last EPDS Self [...] encounter Miscellaneous Notes * Telephone Encounter - Wesley Powell - 10/26/2023 8:40 AM CDT Caller: Kim Reason for Reschedule/Cancellation (please be detailed, any staff messages or encounters to note?): moved appointment sooner per approval from Dr. Zepeda Prior to reschedule please review: Ordering Provider: JILLIAN DYKES Sedation Determined: MAC Does patient have any ASC Exclusions, please identify?: no Notes on Cancelled Procedure: Procedure: Upper Endoscopy [EGD] Date: 01/01 [facility]; [address] [place] [address] Surgeon: Duane Rescheduled: Yes, Procedure: Upper Endoscopy [EGD] Date: 12/18 Location: [facility] [place]; [address] [place] [address] Surgeon: Duane Sedation Level Scheduled MAC , Reason for Sedation Level order Instructions updated and sent: y Does patient need PAC or Pre -Op Rescheduled? : n Did you cancel or rescheduled an EUS procedure? No. * Telephone Encounter - Wesley Powell - 10/25/2023 4:10 PM CDT Endoscopy Scheduling Screen Have you had a positive Covid test in the last 14 days? No What is your communication preference for Instructions and/or Bowel Prep? MyChart What insurance is in the chart? Other: [employer] Ordering/Referring Provider: JILLIAN DYKES (If ordering provider performs procedure, schedule with ordering provider unless otherwise instructed. ) BMI: Estimated body mass index is 29.86 kg/m?? as calculated from the following: Height as of an earlier encounter on 10/25/23: 1.676 m (5' 6). Weight as of an earlier encounter on 10/25/23: 83.9 kg (185 lb). Sedation Ordered MAC/deep sedation. BMI<= 45 45 < BMI <= 48 48 < BMI < = 50 BMI > 50 No Restrictions No MG ASC No [facility] [place] [facility] with exceptions Hospital Only OR Only Do you have a history of malignant hyperthermia? No (Females) Are you currently ? No Have you been diagnosed or told you have pulmonary hypertension? No Do you have an LVAD? No Have you been told you have moderate to severe sleep apnea? No Have you been told you have COPD, asthma, or any other lung disease? No Do you have any heart conditions? No Have you ever had or are you waiting for an organ transplant? No. Continue scheduling, no site restrictions. Have you had a stroke or transient ischemic attack (TIA aka mini stroke in the last 6 months? No Have you been diagnosed with or been told you have cirrhosis of the liver? No Are you currently on dialysis? No Do you need assistance transferring? No BMI: Estimated body mass index is 29.86 kg/m?? as calculated from the following: Height as of an earlier encounter on 10/25/23: 1.676 m (5' 6). Weight as of an earlier encounter on 10/25/23: 83.9 kg (185 lb). Is patients BMI > 40 and scheduling location [facility]? No Do you take an injectable medication for weight loss or diabetes (excluding insulin)? No Do you take the medication Naltrexone? No Do you take blood thinners? Yes Are you taking Effient/Prasugrel? No, you must contact your prescribing provider for direction on holding or bridging with a different medication. Prep Are you currently on dialysis or do you have chronic kidney disease? No Do you have a diagnosis of diabetes? No Do you have a diagnosis of cystic fibrosis (CF)? No On a regular basis do you go 3 -5 days between bowel movements? No BMI > 40? No Preferred Pharmacy: [id number] [place], [place] - [address] [address] [facility] [address] Final Scheduling Details Procedure scheduled Upper endoscopy (EGD) Surgeon: Duane Date of procedure: 01/31 ---message to Dr. Zepeda to see if we could add on 01/17 Pre-OP / PAC: No - Not required for this site. Location [facility] - ASC - Patient preference. Sedation MAC/Deep Sedation - Per order. Patient Reminders: You will receive a call from a Nurse to review instructions and health history. This assessment must be completed prior to your procedure. Failure to complete the Nurse assessment may result in the procedure being cancelled. On the day of your procedure, please designate an adult(s) who can drive you home stay with you forthe next 24 hours. The medicines used in the exam will make you sleepy. You will not be able to drive. You cannot take public transportation, ride share services, or non-medical taxi service without a responsible caregiver. Medical transport services are allowed with the requirement that a responsiblecaregiver will receive you at your destination. We require that drivers and caregivers are confirmed prior to your procedure. documented in this encounter Plan of Treatment Upcoming Encounters Date Type Department Care Team (Late st Contact Info) Description 11/01/2023 8:00 AM CDT Appointment [facility] [address] [place] [place] [phone] Lauren Claudio PA-C [address] [place] [address] 11/03/2023 8:00 AM CDT Office Visit [facility] [address] [place] [phone] Valery Veronica, ROVERTO [address] [place] [address] 11/29/2023 8:00 AM CDT Office Visit [facility] [address] [place] [phone] Esha Grimm PA-C [address] [place] [address] 12/19/2023 11:30 AM CDT Hospital Encounter [address] [phone] Rocky Zepeda DO 500 [place], [place] 717955 12/19/2023 11:30 AM CDT - 12/19/2023 12:00 PM CDT Surgery [address] [phone] Rocky Zepeda, DO 500 [place], [place] 5549[address] Esophagoscopy, gastroscopy, duodenoscopy (EGD), combined 01/02/2024 8:00 AM CDT Office Visit [facility] [address] [place] [phone] Lauren Claudio PA-C [address] [place], [place] [phone] Kelli Perez MD [address] [place] [address] [phone] Scheduled Procedures Name Priority Associated Diagnoses Date/Ti ga ESOPHAGOGASTRODUODENOSCOPY Eosinophilic esophagitis Esophageal dysphagia 12/19/2023 11:30 AM CDT documented as of this encounter Visit Diagnoses Not on filedocumented in this encounter Additional Health Concerns Assessment Noted Time PHQ-9 Depression Total Score: 4 06/20/20 23 8:40 AM OFFSET 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 documented as of this encounter Care Teams Telephone Mechanic Relationship Specialty Start Date End Date Esha Grimm PA-C [address] [place] [phone] PCP - General Family Medicine 05/04/23 Diana Desir, [facility] [address] [place] [address] Pharmacist Pharmacist 04/17/21 Rain Galaviz PA-C [address] [place] [address] [address] [place] [address] Physician Intermission Coordinator Dermatology 04/28/21 Tavia Wyatt MD [address] [place] [address] DR [facility] [address] Dermatology 07/14/21 Erica Farrell APRN VENEER PATCHER [address] [place] [address] Nurse Practitioner Cardiovascular Disease 09/09/21 Rich Barrett MD [address] [place] [address] 007725 Physician Ophthalmology 01/21/22 Neil Kent MD [address] [place] [address] [phone] Dermatology 02/24/22 Diana Desir, [facility] [address] [place] [address] Assigned MTM Pharmacist 04/07/22 Livan Sharif MD [address] [place] [address] Cardiovascular Disease 05/14/22 Catherine Cm MD 6405 [facility] [address] [place] 118115 Cardiovascular Disease 07/21/22 Valery Veronica PA-C 909 [place], [place] 649855 Physician Intermission Coordinator Dermatology 07/21/22 Brea Quinn APRN VENEER PATCHER 500 [place], [place] [phone] Nurse Practitioner Dermatology 09/21/22 Brea Quinn APRN VENEER PATCHER 6401 [facility] [facility] [place] [address] Assigned Surgical Provider 10/09/22 [place] [address] [address] [place], [place] 344007 Assigned Musculoskeletal Provider 10/09/22 Alfonso Renteria MD 5775 [facility] 200 [place], [place] 602156 Assigned Neuroscience Provider 04/02/23 Radha Lomeli APRN VENEER PATCHER [address] [place] [phone] [place] 013195 Assigned Heart and Vascular Provider 05/28/23 Jelena David OD 3305 [facility] [place] [address] MD Ophthalmology 06/15/23 Pao Joseph, RN Personal Advocate & Liaison (PAL) Nurse 08/01/23 Esha Grimm PA-C [address] [place] [phone] Assigned PCP 07/16/23 Valery Veronica PA-C [address] [place] [address] [phone] Physician Intermission Coordinator Dermatology 09/19/23 Rey Tay MD [address] [place] [address] [phone] Gastroenterology 09/20/23 Rocky Zepeda DO [address] [place] [address] Physician Gastroenterology 09/20/23 Philip Dumont MD [address] [place] [address] Physician Ophthalmology 09/22/23 documented as of this encounter
--- OUTSIDE RECORDS SUMMARY | 2023-10-28 16:33 | XMS_ITS | Encounter Summary ---
Author Name Unknown Organization [place] Address [address] [place] [address] Care Team Providers Care Medical Lead Name Role Phone ThangKendrickDiana T [facility] Unavailable Rain Galaviz-C Unavailable Tavia Wyatt MD Unavailable Unavailable Erica Farrell APRN OVER SHORT AND DAMAGE CLERK Unavailable Rich Barrett MD Unavailable Neil Kent MD Unavailable Diana Desir [facility] Unavailable [phone] Livan Sharif MD Unavailable Catherine Cm MD Unavailable + Valery Veronica-C Unavailable [phone] Brea Quinn HOGSHEAD WEIGHER OVER SHORT AND DAMAGE CLERK Unavailable Brea Quinn HOGSHEAD WEIGHER OVER SHORT AND DAMAGE CLERK Unavailable Jose Francisco Johnson MD Unavailable Alfonso Renteria MD Unavailable + [phone] Esha Grimm PA-C Primary Care Provider [phone] Radha Lomeli HOGSHEAD WEIGHER OVER SHORT AND DAMAGE CLERK Unavailable FrankieJelena OD Unavailable [phone] Pao Joseph RN Unavailable Unavailable Esha Grimm PA-C Unavailable [phone] Valery Veronica PA-C Unavailable Rey Tay MD Unavailable Duane Rockyanne STEVENS Unavailable Philip Dumont MD Unavailable [phone] Encounter Details Date Type Department Care Team (Late st Contact Info) Description 10/25/2023 MyC Medical Advice [facility] [address] [place] [address] Nelly [place], RD 909 [place] [address] Social History Tobacco Use Types [...] often do you attend chur ch or muslim services? 1 to 4 times per year [...] Date Recorded PHQ-2 Score 0 10/25/2023 [facility] - Occupational Stress Questionnaire Answer Date [...] at this level? 30 min 03/10/2023 [place] Depression Scale Answer Date Recorded [place] Depression Score 5 01/14/2021 Last EPDS [...] Info) Description 11/01/2023 8:00 AM CDT Appointment [facility] [address] [place] [address] Lauren Cluadio PA-C [address] [place], [place] [phone] 11/03/2023 8:00 AM CDT Office Visit [address] [phone] Valery Veronica PA-C [address] [place] [address] 11/29/2023 8:00 AM CDT Office Visit [facility] [address] [place] [phone] Esha Grimm PA-C [address] [place] [address] 12/19/2023 11:30 AM CDT Hospital Encounter [facility] 9[address] [facility] 5th [place] [phone] Rocky Zepeda, [address] [place] [address] 12/19/2023 11:30 AM CDT - 12/19/2023 12:00 PM CDT Surgery [facility] 909 [facility] 5th [place] [phone] Rocky Zepeda, DO [address] [place], [place] 73[address] Esophagoscopy, gastroscopy, duodenoscopy (EGD), combined 01/02/2024 8:00 AM CDT Office Visit [facility] [address] [place] [phone] Lauren Claudio PA-C [address] [place], [place] [phone] Kelli Perez MD [address] [facility] [address] [address] Scheduled Procedures Name Priority Associated Diagnoses Date/Ti mi ESOPHAGOGASTRODUODENOSCOPY Eosinophilic esophagitis Esophageal dysphagia 12/19/2023 11:30 AM CDT documented as of this encounter Visit Diagnoses Not on filedocumented in this encounter Additional Health Concerns Assessment Noted Time PHQ-9 Depression Total Score: 4 06/20/20 23 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 encounter Care Teams Medical Lead Relationship Specialty Start Date End Date Esha Grimm PA-C [id number] [place] [phone] PCP - General Family Medicine 05/04/23 Diana Desir [facility] 3033 [place] [address] Pharmacist Pharmacist 04/17/21 Rain Galaviz PA-C [address] [place] [address] [address] [place] [address] Physician Corner Bead Operator Dermatology 04/28/21 Tavia Wyatt MD [address] [place] [address] [address] [place], [place] [address] Dermatology 07/14/21 Erica Farrell APRN OVER SHORT AND DAMAGE CLERK [address] [place] [address] Nurse Practitioner Cardiovascular Disease 09/09/21 Rich Barrett MD [address] [place] [address] 780395 Physician Ophthalmology 01/21/22 Neil Kent MD [address] [place] [address] 005335 Dermatology 02/24/22 [facility] [address] [place] [address] Assigned [place] Pharmacist 04/07/22 Livan Sharif MD [address] [place] 599745 Cardiovascular Disease 05/14/22 Catherine Cm MD [address] [facility] [place] 230935 Cardiovascular Disease 07/21/22 Valery Veronica, PAUcheC [address] [place] [address] 747455 Physician Corner Bead Operator Dermatology 07/21/22 Brea Quinn APRN OVER SHORT AND DAMAGE CLERK 500 [place], [place] 925575 Nurse Practitioner Dermatology 09/21/22 Brea Quinn APRN OVER SHORT AND DAMAGE CLERK 6401 [place] [address] Assigned Surgical Provider 10/09/22 [place] [address] [address] [phone] Assigned Musculoskeletal Provider 10/09/22 Alfonso Renteria MD [address] 118256 Assigned Neuroscience Provider 04/02/23 Radha Lomeli APRN OVER SHORT AND DAMAGE CLERK [address] 199165 Assigned Heart and Vascular Provider 05/28/23 Jelena David OD [address] [facility] [place] [address] Ophthalmology 06/15/23 Pao Joseph, VJ Personal Advocate & Liaison (PAL) Nurse 08/01/23 Esha Grimm PA-C [address] [place] [phone] Assigned PCP 07/16/23 Valery Veronica PA-C [address] [place] [address] Physician Corner Bead Operator Dermatology 09/19/23 Rey Tay MD 909 [place] [address] Gastroenterology 09/20/23 Rocky Zepeda DO [address] [place] [address] 018495 Physician Gastroenterology 09/20/23 Philip Dumont MD 6 [place] [address] Physician Ophthalmology 09/22/23 documented as of this encounter
--- OUTSIDE RECORDS SUMMARY | 2023-10-28 16:33 | XMS_ITS | Encounter Summary ---
Author Name Unknown Organization [place] Address [address] [place] [address] Care Team Providers Care Mcat Instructor Name Role Phone ThangKendrickDiana T [facility] Unavailable Rain Galaviz-C Unavailable [phone] Tavia Wyatt MD Unavailable Unavailable Erica Farrell APRN BUTCHERETTE Unavailable Rich Barrett MD Unavailable Neil Kent MD Unavailable Diana Desir [facility] Unavailable [phone] Livan Sharif MD Unavailable Catherine Cm MD Unavailable + Valery Veronica-C Unavailable [phone] Brea Quinn BLUEPRINTING MACHINE OPERATOR BUTCHERETTE Unavailable Brea Quinn BLUEPRINTING MACHINE OPERATOR BUTCHERETTE Unavailable Jose Francisco Johnson MD Unavailable Alfonso Renteria MD Unavailable + [phone] Esha Grimm PA-C Primary Care Provider [phone] Radha Lomeli BLUEPRINTING MACHINE OPERATOR BUTCHERETTE Unavailable [phone] FrankieJelena OD Unavailable Pao Joseph RN Unavailable Unavailable Esha Grimm PA-C Unavailable [phone] Valery Veronica PA-C Unavailable [phone] Rey Tay MD Unavailable ZepedaRocky Unavailable Philip Dumont MD Unavailable [phone] Encounter Details Date Type Department Care Team (Latest Contact Info) Description 10/26/2023 Travel Social History Tobacco Use Types Packs/Day [...] often do you attend [facility] or latter day services? 1 to [...] Answer Date Recorded PHQ-2 Score 0 10/25/2023 [facility] - Occupational Stress [...] exercise at this level? 30 min 03/10/2023 [place] Depression Scale Answer Date Recorded [place] Depression Score 5 01/14/2021 Last EPDS Self [...] Info) Description 11/01/2023 8:00 AM CDT Appointment [facility] [address] [place] [address] Lauren Claudio PA-C [address] [place] [address] 11/03/2023 8:00 AM CDT Office Visit [address] [phone] Valery Veronica PA-C [address] [place] [address] 11/29/2023 8:00 AM CDT Office Visit [facility] [address] [place] [phone] Esha Grimm PA-C [address] [place] [phone] 12/19/2023 11:30 AM CDT Hospital Encounter [address] [phone] Rocky Zepeda DO 500 [place] [address] 12/19/2023 11:30 AM CDT - 12/19/2023 12:00 PM CDT Surgery [address] [phone] Rocky Zepeda DO 500 [place] [address] Esophagoscopy, gastroscopy, duodenoscopy (EGD), combined 01/02/2024 8:00 AM CDT [facility] [address] [place] [address] Lauren Claudio PA-C [address] [place], [place] [phone] Kelli Perez MD [address] [facility] 106 [place], [place] 080154 Scheduled Procedures Name Priority Associated Diagnoses Date/Ti ri ESOPHAGOGASTRODUODENOSCOPY Eosinophilic esophagitis Esophageal dysphagia 12/19/2023 11:30 AM CDT documented as of this encounter Visit Diagnoses Not on filedocumented in this encounter Additional Health Concerns Assessment Noted Time PHQ-9 Depression Total Score: 4 06/20/20 23 8:40 AM 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 documented as of this encounter Care Teams Mcat Instructor Relationship Specialty Start Date End Date Esha Grimm PA-C [address] [place] [phone] PCP - General Family Medicine 05/04/23 Diana Desir, [facility] [address] [place] [address] Pharmacist Pharmacist 04/17/21 Rain Galaviz PA-C [address] [place] [address] [address] [place] [address] Physician Glassie Dermatology 04/28/21 Tavia Wyatt MD [address] [place] [address] [address] [place] [address] Dermatology 07/14/21 Erica Farrell APRN BUTCHERETTE [address] [place] [address] Nurse Practitioner Cardiovascular Disease 09/09/21 Rich Barrett MD 516 [facility] 9A [place] [address] Physician Ophthalmology 01/21/22 Neil Kent MD 500 [place] [address] Dermatology 02/24/22 Diana Desir, [facility] 3033 [place], [place] 419296 Assigned [place] Pharmacist 04/07/22 Livan Sharif MD [address] [facility] [address] [place] [address] Cardiovascular Disease 05/14/22 Catherine Cm MD [address] [facility]00 [place] [address] Cardiovascular Disease 07/21/22 Valery Veronica, PAUcheC 909 [place], [place] 615835 Physician Glassie Dermatology 07/21/22 Brea Quinn APRN BUTCHERETTE 500 [place], [place] [phone] Nurse Practitioner Dermatology 09/21/22 Brea Quinn APRN BUTCHERETTE 6401 [place] [address] Assigned Surgical Provider 10/09/22 [place] [address] [place] [facility] 300 [place] [address] Assigned Musculoskeletal Provider 10/09/22 Alfonso Renteria MD [address] [facility] 200 [place], [place] [phone] Assigned Neuroscience Provider 04/02/23 Radha Lomeli APRN [place]ETTE 6405 [facility] [address] [place] [address] Assigned Heart and Vascular Provider 05/28/23 Jelena David OD [address] [place] [address] Ophthalmology 06/15/23 Pao Joseph, VJ Personal Advocate & Liaison (PAL) Nurse 08/01/23 Esha Grimm PA-C [address] [place] [phone] Assigned PCP 07/16/23 Valery Veronica PA-C [address] [place] [address] 827955 Physician Glassie Dermatology 09/19/23 Rey Tay MD 9 [place], [place] [phone] Gastroenterology 09/20/23 Rocky Zepeda DO [address] [place] [address] [phone] Physician Gastroenterology 09/20/23 Philip Dumont MD [address] [place] [address] 487995 Physician Ophthalmology 09/22/23 documented as of this encounter
--- OUTSIDE RECORDS SUMMARY | 2023-10-28 16:34 | XMS_ITS | Encounter Summary ---
Author Name Unknown Organization [place] Address [address] [place] [address] Care Team Providers Care Business Development Analyst Name Role Phone ThangKendrickDiana T [facility] Unavailable [phone] Rain Galaviz-C Unavailable [phone] Tavia Wyatt MD Unavailable Unavailable Erica Farrell APRN ORIGINATION SPECIALIST Unavailable Rich Barrett MD Unavailable Neil Kent MD Unavailable Diana Desir [facility] Unavailable [phone] Livan Sharif MD Unavailable Catherine Cm MD Unavailable + Valery Veronica-C Unavailable [phone] Brea Quinn RN CHEMICAL DEPENDENCY ORIGINATION SPECIALIST Unavailable Brea Quinn RN CHEMICAL DEPENDENCY ORIGINATION SPECIALIST Unavailable Jose Francisco Johnson MD Unavailable Alfonso Renteria MD Unavailable + [phone] Esha Grimm PA-C Primary Care Provider [phone] Radha Lomeli RN CHEMICAL DEPENDENCY ORIGINATION SPECIALIST Unavailable Jelena David OD Unavailable [phone] Pao Joseph RN Unavailable Unavailable Esha Grimm PA-C Unavailable [phone] Valery Veronica PA-C Unavailable [phone] Rey Tay MD Unavailable ZepedaRocky woodard Unavailable Philip Dumont MD Unavailable [phone] Reason for Visit * Reason Onset Date Comments Outreach 10/20/2023 Encounter Details Date Type Department Care Team (Late st Contact Info) Description 10/20/2023 [facility] Medical Advice [facility] [id number] [place] [phone] Esha Grimm PA-C [id number] [place] [phone] Outreach Social History Tobacco Use Types [...] Recorded PHQ-2 Score 0 06/20/2023 [facility] - Occupational Stress Questionnaire Answer Date Recorded [...] exercise at this level? 30 min 03/10/2023 [place] Depression Scale Answer Date Recorded [place] Depression Score 5 01/14/2021 Last EPDS Self [...] Telephone Encounter - Pao Joseph RN - 10/21/2023 2:48 PM CDT Esha Grimm PA-C- See pt's GraffitiGeo message response. Please review and advise. Routed to PCP VJ Mart (Patient Advocate Liaison) [facility] * Telephone Encounter - Pao Joseph RN - 10/20/2023 12:49 PM CDT Esha Grimm PA-C- See pt's Minuttat message. Please review and advise. Routed to PCP VJ Mart (Patient Advocate Liaison) [facility] documented in this encounter Plan of Treatment Upcoming Encounters Date Type Department Care Team (Late st Contact Info) Description 11/01/2023 8:00 AM CDT Appointment [facility] Imaging [address] [place] Nguyen [phone] Lauren Claudio PA-C [address] [place] [address] 11/03/2023 8:00 AM CDT Office Visit [facility] [address] [place] [phone] Valery Veronica PA-C [address] [place] [address] 11/29/2023 8:00 AM CDT Office Visit [facility] [address] [place] [phone] Esha Grimm PA-C [address] [place] [address] 12/19/2023 11:30 AM CDT Hospital Encounter [address] [phone] Rocky Zepeda DO 500 [place] [address] 12/19/2023 11:30 AM CDT - 12/19/2023 12:00 PM CDT Surgery [address] [phone] Rocky Zepeda DO 500 [place] [address] Esophagoscopy, gastroscopy, duodenoscopy (EGD), combined 01/02/2024 8:00 AM CDT Office Visit [facility] [place] [address] [place] [phone] Lauren Claudio PA-C [address] [place], [place] [phone] Kelli Perez MD [address] [place] [address] Scheduled Procedures Name Priority Associated Diagnoses Date/Ti fl ESOPHAGOGASTRODUODENOSCOPY Eosinophilic esophagitis Esophageal dysphagia 12/19/2023 11:30 AM CDT documented as of this encounter Visit Diagnoses Not on filedocumented in this encounter Additional Health Concerns Assessment Noted Time PHQ-9 Depression Total Score: 4 06/20/20 8:40 AM DIRECTOR OF PLACEMENT documented as of this encounter Care Teams Business Development Analyst Relationship Specialty Start Date End Date Esha Grimm PA-C [address] [place] [phone] PCP - General Family Medicine 05/04/23 Diana Desir, [facility] [address] [place] [address] Pharmacist Pharmacist 04/17/21 Rain Galaviz PA-C [address] [place] [address] [address] [place] [address] Physician Disbursement Clerk Dermatology 04/28/21 Tavia Wyatt MD [address] [place] [address] [address] [place] [address] Dermatology 07/14/21 Erica Farrell APRN ORIGINATION SPECIALIST [address] [facility] [address] [place], [place] [address] Nurse Practitioner Cardiovascular Disease 09/09/21 Rich Barrett MD 516 [facility] [address] [place], [place] 5[address] Physician Ophthalmology 01/21/22 Neil Kent MD 500 [place] [address] Dermatology 02/24/22 [facility] [address] [place], [place] [address] Assigned [place] Pharmacist 04/07/22 Livan Sharif MD [address] [facility] [id number] [place] [address] Cardiovascular Disease 05/14/22 Catherine Cm MD 6[address] [facility] TOM [address] [address] Cardiovascular Disease 07/21/22 Valery Veronica, PA-C 909 [place], [place] [address] Physician Disbursement Clerk Dermatology 07/21/22 Brea Quinn APRN ORIGINATION SPECIALIST 500 [place], [place] 0[address] Nurse Practitioner Dermatology 09/21/22 Brea Quinn APRN ORIGINATION SPECIALIST 6401 [place] [address] Assigned Surgical Provider 10/09/22 [place] [address] 448[address] Assigned Musculoskeletal Provider 10/09/22 Alfonso Renteria MD [address] [address] Assigned Neuroscience Provider 04/02/23 Radha Lomeli APRN ORIGINATION SPECIALIST [address] [place] [address] Assigned Heart and Vascular Provider 05/28/23 Jelena David OD [address] [facility] [address] MD Ophthalmology 06/15/23 Pao Joseph, RN Personal Advocate & Liaison (PAL) Nurse 08/01/23 Esha Grimm PA-C [address] [place] [phone] Assigned PCP 07/16/23 Valery Veronica PA-C [address] [place] [address] Physician Disbursement Clerk Dermatology 09/19/23 Rey Tay MD [address] [place] [address] MD Gastroenterology 09/20/23 Rocky Zepeda DO [address] [place] [address] Physician Gastroenterology 09/20/23 Philip Dumont MD [address] [place] [address] 878875 Physician Ophthalmology 09/22/23 documented as of this encounter
--- OUTSIDE RECORDS SUMMARY | 2023-10-28 16:34 | XMS_ITS | Encounter Summary ---
Author Name Unknown Organization [place] Address [address] [place] [address] Care Team Providers Care Training Generalist Name Role Phone ThangKendrickDiana T [facility] Unavailable Rain Galaviz-C Unavailable Tavia Wyatt MD Unavailable Unavailable Erica Farrell APRN CONTINUOUS DRIER OPERATOR Unavailable Rich Barrett MD Unavailable Neil Kent MD Unavailable Diana Desir [facility] Unavailable [phone] Livan Sharif MD Unavailable Catherine Cm MD Unavailable + Valery Veronica-C Unavailable [phone] Brea Quinn RN PROCEDURES CONTINUOUS DRIER OPERATOR Unavailable Brea Quinn RN PROCEDURES CONTINUOUS DRIER OPERATOR Unavailable Jose Francisco Johnson MD Unavailable Alfonso Renteria MD Unavailable + [phone] Esha Grimm PA-C Primary Care Provider Radha Lomeli RN PROCEDURES CONTINUOUS DRIER OPERATOR Unavailable Jelena David OD Unavailable Pao Joseph RN Unavailable Unavailable Esha Grimm PA-C Unavailable [phone] JeremíasValery PA-C Unavailable Rey Tay MD Unavailable Duane Rocky Unavailable Philip Dumont MD Unavailable Reason for Referral * Nutrition (Routine: Next available opening) - Pending Review Specialty Diagnoses / Procedures Referred By Contparviz mayers Referred To Contact Diagnoses Eosinophilic esophagitis Esophageal dysphagia Meredith Carrera PA-C [address] [place] [address] [place] [address] Referral ID Status Reason Start Date Expiration Date V isits Requested Visits Authorized [id number] Pending Review 10/13/2023 10/12/2024 1 1 Scheduling Instructions EOE elimination diet Question Answer Nutritional instruct Other - use Comments Scheduling Instructions: [facility] will call you to coordinate your care as prescribed by your provider. If you don't hear from a patient admitting representative within 2 business days, please call . Additional Information: EOE elimination diet Comments Please be aware that coverage of these services is subject to the terms and limitations of your health insurance plan. Call member services at your health plan with any benefit or coverage questions. [facility] will call you to coordinate your care as prescribed by your provider. If you don't hear from a patient admitting representative within 2 business days, please call . * Consultation (Routine: Next available opening) - Pending Review Specialty Diagnoses / Procedures Referred By Qian mayers Referred To Contact Gastroenterology Diagnoses Eosinophilic esophagitis Esophageal dysphagia Meredith Carrera PA-C [address] [place] [address] [place] [address] Referral ID Status Reason Start Date Expiration Date V isits Requested Visits Authorized [id number] Pending Review 10/13/2023 10/12/2024 1 1 Scheduling Instructions EGD MAC Dr. Zepeda preferred Question Answer Service: Upper Endoscopy Upper Endoscopy Type: EGD Sedation Concerns: No medical conditions affecting sedation Sedation Type: Deep/MAC Sedation Reason for Upper Endoscopy: EGD MAC EOE. Now on Omeprazole 40mg twice daily. Please obtain at least 4 proximal and 4 distal biopseise of the esophagus.. Preferred Location: [facility] Scheduling Instructions: [facility] will call you to coordinate your care as prescribed by the provider. If you don? t hear from a patient admitting representative within 2 business days, please call . Comments Please be aware that coverage of these services is subject to the terms and limitations of your health insurance plan. Call member services at your health plan with any benefit or coverage questions. [facility] will call you to coordinate your care as prescribed by the provider. If you don? t hear from a patient admitting representative within 2 business days, please call . Reason for Visit * Reason Comments New Patient Encounter Details Date Type Department Care Team (Latest Contact Info) Description 10/13/2023 10:45 AM CDT Office Visit [facility] [address] [place] [address] Meredith Carrera PA-C [address] [place] [phone] Eosinophilic esophagitis (Primary Dx); Esophageal dysphagia Social [...] How often do you attend chur or orthodox services? 1 to 4 times per [...] Score 0 06/20/2023 [facility] [...] exercise at this level? 30 min 03/10/2023 [place] Depression Scale Answer Date Recorded [place] Depression Score 5 01/14/2021 Last EPDS Self [...] are summarized as follows: - Consultation with director energy to discuss elimination diet for EOE - [...] Inessa WD, Yoli BMR. Am J Gastroenterol 2020;115:5540-4362).This was discussed with the patient in detail. The quality of research studies was described (retrospective vs prospective). Data from recent review article provided (Duane MCGOWAN, John PO. Proton Pump Inhibitors in 2020: Pros, Cons, and Everything in Between. Foregut. November 2020. Doi:10.1177/[id number]). The value of joint decision making was [...] To schedule endoscopic procedures you may call: [phone] To schedule radiology (imaging) tests you may call: [phone] To schedule an ENT appointment you may call: [phone] Please call my nurse Jessa ([phone]), Mindy ([phone]) with any questions or concerns. Return to GI Clinic in 4 months to review your progress. Who do I call with any questions after my visit? Please be in touch if there are any further questions that arise following today's visit. There aremultiple ways to contact your gastroenterology care team. During business hours, you may reach a Gastroenterology nurse at [phone] and choose option 3. To schedule or reschedule an appointment, please call [phone]. You can always send a secure message through [employer]. [employer] messages are answered by your nurse or doctor typically within 24 hours. Please allow extra time on weekends and holidays. For urgent/emergent questions after business hours, you may reach the on-call GI Fellow by contacting the [facility] travograph operator at . How will I get the results of any tests ordered? You will receive all of your results. If you have signed up for [employer], any tests ordered at your visit will be available to you after your physician reviews them. Typically this takes 1-2 weeks. Ifthere are urgent results that require a change in your care plan, your physician or nurse will callyou to discuss the next steps. What is [employer]? [employer] is a secure way for you to access all of your healthcare records from the [facility]. It is a web based computer program, so you can sign on to it from any location. It also allows you to send secure messages to your care team. I recommend signing up for H[employer]HC[employer] access if you have not already done so and are comfortable with using a computer. How to I schedule a follow-up visit? If you did not schedule a follow-up visit today, please call [phone] to schedule a follow-up office visit. If you feel you received exceptional care and are interested in supporting the clinical and research goals of Meredith Carrera PA-C or the Division of Gastroenterology, Hepatology, and Nutrition please contact [email or web address] from the [facility] to discuss opportunities to donate. Sincerely, Meredith Carrera PA-C Division of Gastroenterology, Hepatology, and Nutrition [facility] documented in this encounter Progress Notes * Meredith Carrera PA-C - 10/13/2023 10:45 AM CDT Gastroenterology Visit for: Kim Johnson 2000 Reason for Visit: chief complaint Referred by: Tay / [address] [place] [address] / [facility] [address] Patient Care Team: Esha Grimm PA-C as PCP - General (Family Medicine) Diana Desir RPH as Pharmacist (Pharmacist) Rain Galaviz PA-C as Physician Advertising Sales Executive (Dermatology) Tavia Wyatt MD as (Dermatology) Erica Farrell APRN CNP as Nurse Practitioner (Cardiovascular Disease) Rich Barrett MD as Physician (Ophthalmology) Neil Kent MD as (Dermatology) Diana Desir RP as Assigned MTM Pharmacist Livan Sharif MD as (Cardiovascular Disease) Catherine Cm MD as MD (Cardiovascular Disease) Valery Veronica PA-C as Physician Advertising Sales Executive (Dermatology) Brea Quinn APRN CNP as Nurse Practitioner (Dermatology) Brea Quinn APRN CNP as Assigned Surgical Provider Jose Francisco Johnson MD as Assigned Musculoskeletal Provider Alfonso Renteria MD as Assigned Neuroscience Provider Radha Lomeli APRN CONTINUOUS DRIER OPERATOR as Assigned Heart and Vascular Provider Jel[place] David OD as MD (Ophthalmology) Esha Grimm PA-C as Assigned PCP Pao Joseph RN as Personal Advocate & Liaison (PAL) (Nurse) Valery Veronica PA-C as Physician Advertising Sales Executive (Dermatology) Rey Tay MD as MD (Gastroenterology) [...] Surgeon: Galo Burrell MD; Location: 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 Other Topics Concern Parent/sibling w/ CABG, [place] or angioplasty before 65F 55M? Not Asked [...] 30 min Stress: Stress Concern Present (03/10/2023) [place] [place] of Occupational Health - Occupational Stress Questionnaire Feeling of Stress : To some extent Social Connections: Moderately Isolated (03/10/2023) Social Connection and Isolation Panel [NHANES] Frequency of Communication with Friends and Family: Three times a week Frequency of Social Gatherings with Friends and Family: Twice a week Attends [employer] Services: 1 to 4 times per year [...] Medium Added automatically from request for surgery [id number] Left ureteral stone 05/27/2020 Priority: Medium Added automatically from request for surgery [id number] Head ache 02/18/2020 Priority: Medium Seizure (H) [...] Hernia - 3 cm EGD 09/12/2023 EREFS 75984. Additional findings were notable for 3 cm [...] Inessa WD, Yoli BMR. Am J Gastroenterol 2020;115:[id number]).This was discussed with the patient in detail. The quality of research studies was described (retrospective vs prospective). Data from recent review article provided (Duane MCGOWAN, John PO. Proton Pump Inhibitors in 2020: Pros, Cons, and Everything in Between. Foregut. November 2020. Doi:10.1177/[id number]). The value of joint decision making was [...] be to obtain consultation with Nelly Mesa director energy. Pending would then consider Omeprazole 40 mg twice daily. Patient also carries diagnosis of psoriasis and has appointment with dermatology at the end of the month. She will plan to discuss the use of Dupixent for her dermatological concerns. After meeting with the dietitian and complaint manager patient was asked to inform provider [...] PA-C Division of Gastroenterology, Hepatology, and Nutrition [facility] Documentation assisted by voice recognition and documentation system. documented in this encounter Plan of Treatment Upcoming Encounters Date Type Department Care Team (Late st Contact Info) Description 11/01/2023 8:[address] [facility] [address] [place] [phone] Lauren Claudio PA-C [address] [place] [address] 11/03/2023 8:00 AM CDT Office Visit [address] [phone] Valery Veronica PA-C [address] [place] [address] 11/29/2023 8:00 AM CDT Office Visit [facility] [address] [place] [phone] Esha Grimm PA-C [address] [place] [phone] 12/19/2023 11:30 AM CDT Hospital Encounter [address] [phone] Rocky Zepeda DO [address] [place], [place] [address] 12/19/2023 11:30 AM CDT - 12/19/2023 12:00 PM CDT Surgery [address] [phone] Rocky Zepeda DO [address] [place] [address] Esophagoscopy, gastroscopy, duodenoscopy (EGD), combined 01/02/2024 8:00 AM CDT Office 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 MASTER documented as of this encounter Care Teams Training Generalist Relationship Specialty Start Date End Date Esha Grimm PA-C [address] [place] [address] PCP - General Family Medicine 05/04/23 Diana Desir, [facility] [address] [facility] [place] [address] Pharmacist Pharmacist 04/17/21 Rain Galaviz PA-C [address] [place] [address] [address] [place] [address] Physician Advertising Sales Executive Dermatology 04/28/21 Tavia Wyatt MD [address] [place] [address] [address] [place] [address] Dermatology 07/14/21 Erica Farrell APRN CONTINUOUS DRIER OPERATOR [address] [place] [address] Nurse Practitioner Cardiovascular Disease 09/09/21 Rich Barrett MD 516 [facility] [address] [place], [place] [address] Physician Ophthalmology 01/21/22 Neil Kent MD 500 [place], [place] [address] Dermatology 02/24/22 Diana Desir, [facility] [address] [place], [place] [address] Assigned [place] Pharmacist 04/07/22 Livan Sharif MD [address] [place] [address] Cardiovascular Disease 05/14/22 Catherine Cm MD [address] [place] [address] Cardiovascular Disease 07/21/22 Valery Veronica PAUcheC [address] [place], [place] [address] Physician Advertising Sales Executive Dermatology 07/21/22 Brea Quinn APRN CONTINUOUS DRIER OPERATOR 500 [place], [place] 9850[address] Nurse Practitioner Dermatology 09/21/22 Brea Quinn APRN CONTINUOUS DRIER OPERATOR 6401 [facility] [place] [address] Assigned Surgical Provider 10/09/22 [place] [address] [address] [place] [address] Assigned Musculoskeletal Provider 10/09/22 Alfonso Renteria MD [address] [facility] 200 [place], [place] [address] Assigned Neuroscience Provider 04/02/23 Radha Lomeli APRN CONTINUOUS DRIER OPERATOR 6405 [facility] [address] [place] [address] Assigned Heart and Vascular Provider 05/28/23 Jelena David OD [address] [facility] [place] [address] Ophthalmology 06/15/23 Pao Joseph, RN Personal Advocate & Liaison (PAL) Nurse 08/01/23 Esha Girmm PA-C [address] [place] [phone] Assigned PCP 07/16/23 Valery Veronica PA-C [address] [place], [place] [address] Physician Advertising Sales Executive Dermatology 09/19/23 Rey Tay MD [address] [place], [place] 4989[address] Gastroenterology 09/20/23 Rocky Zepeda DO [address] [place] [address] 736525 Physician Gastroenterology 09/20/23 Philip Dumont MD [address] [place] [address] 908205 Physician Ophthalmology 09/22/23 documented as of this encounter
--- OUTSIDE RECORDS SUMMARY | 2023-10-28 16:34 | XMS_ITS | Encounter Summary ---
Author Name Unknown Organization [facility] Address [address] [place] [address] Care Team Providers Care Road Test Examiner Name Role Phone ThangKendrickDiana T [facility] Unavailable [phone] Rain Galaviz-C Unavailable Tavia Wyatt MD Unavailable Unavailable Erica Farrell APRN WEIGHT TESTER Unavailable Rich Barrett MD Unavailable Neil Kent MD Unavailable Diana Desir [facility] Unavailable [phone] Livan Sharif MD Unavailable Catherine Cm MD Unavailable + Valery Veronica-C Unavailable [phone] Brea Quinn PRODUCTION COST ESTIMATOR WEIGHT TESTER Unavailable Brea Quinn PRODUCTION COST ESTIMATOR WEIGHT TESTER Unavailable Jose Francisco Johnson MD Unavailable Alfonso Renteria MD Unavailable + [phone] Esha Grimm PA-C Primary Care Provider Radha Lomeli PRODUCTION COST ESTIMATOR WEIGHT TESTER Unavailable Jelena David OD Unavailable Pao Joseph RN Unavailable Unavailable Esha Grimm PA-C Unavailable [phone] Valery Veronica PA-C Unavailable [phone] Rey Tay MD Unavailable Rocky Zepeda Unavailable Philip Dumont MD Unavailable [phone] Reason for Visit * Reason Comments [...] Description 10/10/2023 4:20 PM CDT Office Visit [facility] [place] [id number] [place], [place] [address] [address] Jaron Hager PA-C [address]55 [place] [address] Congestion of paranasal sinus (Primary Dx) Social [...] any clubs o r organizations such as restorationist groups, unions, fraternal or athletic groups, [...] Score 0 06/20/2023 [facility] - Occupational [...] exercise at this level? 30 min 03/10/2023 [place] Depression Scale Answer Date Recorded [place] Depression Score 5 01/14/2021 Last EPDS Self [...] findings with the patient. The use of [employer]ardpod[employer] dictation services was used to construct the content of this note; any grammatical errors are non-intentional. Please contact the author directly if you are in need of any clarification. documented in this encounter Plan of Treatment Upcoming Encounters Date Type Department Care Team (Late st Contact Info) Description 11/01/2023 8:00 AM CDT Appointment [facility] [address] [place] [address] Lauren Claudio PA-C [address] [place] [phone] 11/03/2023 8:00 AM CDT Office Visit [address] [phone] Valery Veronica PA-C 909 [place] [address] 11/29/2023 8:00 AM CDT Office Visit [facility] [address] [place] [address] [phone] Esha Grimm PA-C [address] [place] [address] 12/19/2023 11:30 AM CDT Hospital Encounter [address] [phone] Rocky Zepeda DO 500 [place] [address] 12/19/2023 11:30 AM CDT - 12/19/2023 12:00 PM CDT Surgery [address] [phone] Rocky Zepeda DO 500 [place], [place] 151845 Esophagoscopy, gastroscopy, duodenoscopy (EGD), combined 01/02/2024 8:00 AM CDT Office Visit [address] [phone] Lauren Claudio PA-C [address] [place], [place] [phone] Kelli Perez MD [address] [place] [address] 138874 Scheduled Procedures Name Priority Associated Diagnoses Date/Ti de ESOPHAGOGASTRODUODENOSCOPY Eosinophilic esophagitis Esophageal dysphagia 12/19/2023 11:30 AM CDT documented as of this encounter Visit Diagnoses Diagnosis Congestion of paranasal sinus- Primary Eosinophilic esophagitis Esophageal dysphagia Dysphagia, pharyngoesophageal phase documented in this encounter Additional Health Concerns Assessment Noted Time PHQ-9 Depression Total Score: 4 06/20/20 23 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 documented as of this encounter Care Teams Road Test Examiner Relationship Specialty Start Date End Date Esha Grimm PA-C [address] [place] [phone] PCP - General Family Medicine 05/04/23 Diana Desir, [facility] [address] [place] [address] Pharmacist Pharmacist 04/17/21 Rain Galaviz PA-C [address] [place] [address] [address] [place] [address] Physician Director Cloud Transformation Dermatology 04/28/21 Tavia Wyatt MD [address] [place] [address] [address] [place] [address] Dermatology 07/14/21 Erica Farrell APRN WEIGHT TESTER 6405 [facility] [address] [place] [address] Nurse Practitioner Cardiovascular Disease 09/09/21 Rich Barrett MD 516 [facility] 9A [place], [place] 592345 Physician Ophthalmology 01/21/22 Neil [place] MD 500 [place], [place] 364485 Dermatology 02/24/22 Diana Desir, [facility] [address] [place] [address] Assigned MTM Pharmacist 04/07/22 Livan Sharif MD [address], [facility] [address] [place] [address] Cardiovascular Disease 05/14/22 Catherine Cm MD [address] [facility] [address] [place] 052665 Cardiovascular Disease 07/21/22 Valery Veronica, PAUcheC [address] [place] [address] 224035 Physician Director Cloud Transformation Dermatology 07/21/22 Brea Quinn APRN WEIGHT TESTER 500 [place], [place] 702675 Nurse Practitioner Dermatology 09/21/22 Brea Quinn APRN WEIGHT TESTER [address] [facility] [place], [place] 763962 Assigned Surgical Provider 10/09/22 [place] [address] [place] [address] [address] Assigned Musculoskeletal Provider 10/09/22 Alfonso Renteria MD [address] [facility] 200 [place], [place] 319996 Assigned Neuroscience Provider 04/02/23 Radha Lomeli APRN WEIGHT TESTER [address] [place] [address] Assigned Heart and Vascular Provider 05/28/23 Jelena David OD [address] [facility] [place] [address] Ophthalmology 06/15/23 Pao Joseph, RN Personal Advocate & Liaison (PAL) Nurse 08/01/23 Esha Grimm PA-C [address] [place] [phone] Assigned PCP 07/16/23 Valery Veronica PA-C 909 [place], [place] 286955 Physician Director Cloud Transformation Dermatology 09/19/23 Rey Tay MD [address] [place] [address] Gastroenterology 09/20/23 Rocky Zepeda DO [address] [place] [address] 166325 Physician Gastroenterology 09/20/23 Philip Dumont MD [address] [place] [address] 308815 Physician Ophthalmology 09/22/23 documented as of this encounter
--- OUTSIDE RECORDS SUMMARY | 2023-10-28 16:34 | XMS_ITS | Encounter Summary ---
Author Name Unknown Organization [facility] Address [address] [place] [address] Care Team Providers Care Desulphuring Operator Name Role Phone ThangKendrickDiana T [facility] Unavailable [phone] Rain Galaviz-C Unavailable Tavia Wyatt MD Unavailable Unavailable Erica Farrell APRN ABSTRACT CHECKER Unavailable Rich Barrett MD Unavailable Neil [place] MD Unavailable Diana Desir [facility] Unavailable [phone] Livan Sharif MD Unavailable Catherine Cm MD Unavailable + Valery Veronica-C Unavailable [phone] Brea Quinn MANAGED CARE MANAGER ABSTRACT CHECKER Unavailable [phone] Brea Quinn MANAGED CARE MANAGER ABSTRACT CHECKER Unavailable Jose Francisco Johnson MD Unavailable Alfonso Renteria MD Unavailable + [phone] Esha Grimm PA-C Primary Care Provider Radha Lomeli MANAGED CARE MANAGER ABSTRACT CHECKER Unavailable Jelena David OD Unavailable Pao Joseph RN Unavailable Unavailable Esha Grimm PA-C Unavailable [phone] Valery Veronica PA-C Unavailable [phone] Rey Tay MD Unavailable ZepedaRocky woodard Unavailable Philip Dumont MD Unavailable [phone] Reason for Visit * Reason Onset Date Comments Appointment 10/17/2023 Encounter Details Date Type Department Care Team (Late st Contact Info) Description 10/17/2023 Telephone [facility] [address] [place] [phone] Esha Grimm PA-C [id number] [place] [phone] Appointment Social History Tobacco Use Types [...] often do you attend chur ch or congregation services? 1 to 4 times per year 03/10/2023 Do you belong to any clubs o r organizations such as sabianism groups, unions, fraternal or athletic groups, [...] Answer Date Recorded PHQ-2 Score 0 06/20/2023 [facility] - [facility]ational Stress [...] exercise at this level? 30 min 03/10/2023 [place] Depression Scale Answer Date Recorded [place] Depression Score 5 01/14/2021 Last EPDS Self [...] Telephone Encounter - Asiya Reddy RN - 10/17/2023 1:56 PM CDT Patient calling for appt. States she has been having sinus symptoms x 3 weeks. Did go to 10/10/23 and got RX for Augmentin but was told not to take til day 10. At that time had sinus pain and burning with coughing. Now symptoms changed and not sure if she should take Augmentin or not. Scheduled with Dr. Álvarez tomorrow at 7:40 am. Asiya Reddy RN documented in this encounter Plan of Treatment Upcoming Encounters Date Type Department Care Team (Late st Contact Info) Description 11/01/2023 8:00 AM CDT Appointment [facility] [address] [place] [phone] Lauren Claudio PA-C [address] [place], [place] [phone] 11/03/2023 8:00 AM CDT Office Visit [address] [phone] Valery Veronica PA-C 909 [place] [address] 11/29/2023 8:00 AM CDT Office Visit [address] [phone] Esha Grimm PA-C [address] [place] [phone] 12/19/2023 11:30 AM CDT Hospital Encounter [address] [phone] Rocky Zepeda DO 500 [place], [place] 377565 12/19/2023 11:30 AM CDT - 12/19/2023 12:00 PM CDT Surgery [address] [phone] Rocky Zepeda DO 500 [place], [place] 761145 Esophagoscopy, gastroscopy, duodenoscopy (EGD), combined 01/02/2024 8:00 AM CDT Office Visit [facility] [address] [phone] Lauren Claudio PA-C [address] [place], [place] [phone] Kelli Perez MD [address] [place] [address] Scheduled Procedures Name Priority Associated Diagnoses Date/Ti al ESOPHAGOGASTRODUODENOSCOPY Eosinophilic esophagitis Esophageal dysphagia 12/19/2023 11:30 AM CDT documented as of this encounter Visit Diagnoses Not on filedocumented in this encounter Additional Health Concerns Assessment Noted Time PHQ-9 Depression Total Score: 4 06/20/20 23 8:40 AM MANAGER RN documented as of this encounter Care Teams Desulphuring Operator Relationship Specialty Start Date End Date Esha Grimm PA-C [address] [place] [address] PCP - General Family Medicine 05/04/23 Diana Desir, [facility] [address] [place] [address] Pharmacist Pharmacist 04/17/21 Rain Galaviz PA-C [address] [place] [address] [address] [place] [address] Physician Honeycomb Decapper Dermatology 04/28/21 Tavia Wyatt MD [address] [place] [address] [address] [place] [address] Dermatology 07/14/21 Erica Farrell APRN ABSTRACT CHECKER [address] [place] 9000600 [place] [address] Nurse Practitioner Cardiovascular Disease 09/09/21 Rich Barrett MD [address] [address] Physician Ophthalmology 01/21/22 Neil [place] MD 500 [place], [place] 761215 Dermatology 02/24/22 Diana eDsir, [facility] 303 [place] [address] Assigned MTM Pharmacist 04/07/22 Livan Sharfi MD [address] [facility] [address] [place] 658335 Cardiovascular Disease 05/14/22 Catherine Cm MD [address] [facility] [place], [place] 808295 Cardiovascular Disease 07/21/22 Valery Veronica, PAUcheC [address] [place] [address] 628565 Physician Honeycomb Decapper Dermatology 07/21/22 Brea Quinn APRN ABSTRACT CHECKER [address] [place] [address] [phone] Nurse Practitioner Dermatology 09/21/22 Brea Quinn APRN ABSTRACT CHECKER 6401 [place], [place] 005142 Assigned Surgical Provider 10/09/22 [place] [address] 012337 Assigned Musculoskeletal Provider 10/09/22 Alfonso Renteria MD [address] [id number] Assigned Neuroscience Provider 04/02/23 Radha Lomeli APRN ABSTRACT CHECKER [address] [place] 326945 Assigned Heart and Vascular Provider 05/28/23 Jelena David OD [address] [place] [place] [address] MD Ophthalmology 06/15/23 Pao Joseph, RN Personal Advocate & Liaison (PAL) Nurse 08/01/23 Esha Grimm PA-C [address] [place] [address]-677283 Assigned PCP 07/16/23 Valery Veronica PA-C [address] [place] [address] 038705 Physician Honeycomb Decapper Dermatology 09/19/23 Rey Tay MD [address] [place] [address] 389115 Gastroenterology 09/20/23 Rocky Zepeda DO [address] [place] [address] Physician Gastroenterology 09/20/23 Philip Dumont MD [address] [place] [address] 705665 Physician Ophthalmology 09/22/23 documented as of this encounter
--- OUTSIDE RECORDS SUMMARY | 2023-10-28 16:34 | XMS_ITS | Encounter Summary ---
Author Name Unknown Organization [facility] Address [address] [place] [address] Care Team Providers Care Manager Project Name Role Phone ThangKendrickDiana T [facility] Unavailable Rain Galaviz-C Unavailable Tavia Wyatt MD Unavailable Unavailable Erica Farrell APRN LAPELER Unavailable Rich Barrett MD Unavailable eNil [place] MD Unavailable Diana Desir [facility] Unavailable [phone] Livan Sharif MD Unavailable Catherine Cm MD Unavailable + Valery Veronica-C Unavailable [phone] Brea Quinn CLERICAL ADMINISTRATOR LAPELER Unavailable Brea Quinn CLERICAL ADMINISTRATOR LAPELER Unavailable Jose Francisco Johnson MD Unavailable Alfonso Renteria MD Unavailable + [phone] Esha Grimm PA-C Primary Care Provider Radha Lomeli CLERICAL ADMINISTRATOR LAPELER Unavailable Jelena David OD Unavailable [phone] Pao Joseph RN Unavailable Unavailable Esha Grimm PA-C Unavailable [phone] Valery Veronica PA-C Unavailable [phone] Rey Tay MD Unavailable ZepedaRocky woodard Unavailable Philip Dumont MD Unavailable [phone] Reason for Visit * Reason Onset Date Comments Medication Update 10/21/2023 Encounter Details Date Type Department Care Team (Late st Contact Info) Description 10/21/2023 Telephone [facility] [address] [place] [phone] Esha Grimm PA-C [address] [place] [phone] Medication Update Social History Tobacco Use Types Packs/Day Years [...] Recorded PHQ-2 Score 0 06/20/2023 [facility] - Occupational Stress Questionnaire [...] at this level? 30 min 03/10/2023 [place] Depression Scale Answer Date Recorded [place] Depression Score 5 01/14/2021 Last EPDS Self [...] Telephone Encounter - Esha Grimm PA-C - 10/21/2023 2:54 PM CDT FYI-sent patient [employer] message in response to question about supplement. No need to follow up further unless other questions. Thanks! Esha Grimm PA-C * Telephone Encounter - Asiya Reddy RN - 10/21/2023 2:30 PM CDT Images from the original note were not included. Patient calling regarding below. Is she to stop taking HCL supplement even though she been taking for 1 week and not having any concerns? Taking 1/2 HCL and one digestive enzyme 3 time a day with meals, probiotic in am and multi vitamin in am. Does not want to continue omeprazole forever and statesruss has been on omeprazole since age 16. She feels omeprazole making her worse as now has EOE and hiatal hernia. Tuesday also started the gluten and dairy free diet. Please advise. Patient sending [employer] message with label of HCL. Can send response in mychart. VJ Doe Kayla M, PA-C to Kim DURAN 10/21/23 8:41 AM Soham Alvarez, I would avoid the HCl supplement at this time with the EOE and GERD. Plus if you are using the digestive health and probiotic ones that might end up being too much for your stomach. If after a few weeks you are tolerating the other three you could try adding in the HCl to see if you tolerate this, but I think taking all 4 might lead to more issues with your GERD and EOE. Esha Van Last read by Kim Johnson at 2:06 PM on 10/21/2023. documented in this encounter Plan of Treatment Upcoming Encounters Date Type Department Care Team (Late st Contact Info) Description 11/01/2023 8:00 AM CDT Appointment [facility] [address] [facility] [place] [phone] Lauren Claudio PA-C [address] [place], [place] [phone] 11/03/2023 8:00 AM CDT Office Visit [address] [phone] Valery Veronica PA-C [address] [place] [address] 11/29/2023 8:00 AM CDT Office Visit [facility] [address] [place] [address] [phone] Esha Grimm PA-C [address] [place] [phone] 12/19/2023 11:30 AM CDT Hospital Encounter [facility] [address] [facility] 5th [place] [phone] Rocky Zepeda DO 500 [place] [address] 12/19/2023 11:30 AM CDT - 12/19/2023 12:00 PM CDT Surgery [facility] [address] [facility] [address] 5th [place] [phone] Rocky Zepeda, 500 [place] [address] Esophagoscopy, gastroscopy, duodenoscopy (EGD), combined 01/02/2024 8:00 AM CDT Office Visit [facility] [place] [address] [place] [phone] Lauren Claudio PA-C [address] [place], [place] [phone] Kelli Perez MD [address] [place] [address] [id number] Scheduled Procedures Name Priority Associated Diagnoses Date/Ti ny ESOPHAGOGASTRODUODENOSCOPY Eosinophilic esophagitis Esophageal dysphagia 12/19/2023 11:30 AM CDT documented as of this encounter Visit Diagnoses Not on filedocumented in this encounter Additional Health Concerns Assessment Noted Time PHQ-9 Depression Total Score: 4 06/20/20 23 8:40 AM FORESTRY FOREMAN documented as of this encounter Care Teams Manager Project Relationship Specialty Start Date End Date Esha Grimm PA-C [address] [place] [phone] PCP - General Family Medicine 05/04/23 Diana Desir, [facility] [address] [place], [place] [address] Pharmacist Pharmacist 04/17/21 Rain Galaviz PA-C [address] [place] [address] [address] [phone] Physician Rn Labor And Delivery Dermatology 04/28/21 Tavia Wyatt MD [address] [place] [address] DR RA[address] [facility] [place] [address] Dermatology 07/14/21 Erica Farrell APRN LAPELER [address] [place] 3848[address] Nurse Practitioner Cardiovascular Disease 09/09/21 Rich Barrett MD [address] 759065 Physician Ophthalmology 01/21/22 Neil [place] MD [address] [place] [address] 454175 Dermatology 02/24/22 Diana Desir, [facility] 3033 [place], [place] 282676 Assigned [place] Pharmacist 04/07/22 Livan Sharif MD [address] [place] [address] Cardiovascular Disease 05/14/22 Catherine Cm MD [address] [place] 877685 Cardiovascular Disease 07/21/22 Valery Veronica, PA-C 909 [place], [place] 537935 Physician Rn Labor And Delivery Dermatology 07/21/22 Brea Quinn APRN LAPELER 500 [place] [address] Nurse Practitioner Dermatology 09/21/22 Brea Quinn APRN LAPELER 6401 [place] [address] Assigned Surgical Provider 10/09/22 [place] [address] [facility] [address] [place] [address] Assigned Musculoskeletal Provider 10/09/22 Alfonso Renteria MD 5775 [facility] 200 [place], [place] 428146 Assigned Neuroscience Provider 04/02/23 Radha Lomeli APRN LAPELER 6405 [facility] [address] [place] [address] Assigned Heart and Vascular Provider 05/28/23 Jelena David OD [address] [place] [address] Ophthalmology 06/15/23 Pao Joseph, VJ Personal Advocate & Liaison (PAL) Nurse 08/01/23 Esha Grimm PA-C [address] [place] [phone] Assigned PCP 07/16/23 Valery Veronica PA-C 909 [place], [place] 616975 Physician Rn Labor And Delivery Dermatology 09/19/23 Rey Tay MD 909 [place] [address] MD Gastroenterology 09/20/23 Rocky Zepeda DO [address] [place] [address] 526725 Physician Gastroenterology 09/20/23 Philip Dumont MD 516 [place] [address] Physician Ophthalmology 09/22/23 documented as of this encounter
--- OUTSIDE RECORDS SUMMARY | 2023-10-28 16:34 | XMS_ITS | Encounter Summary ---
Author Name Unknown Organization [facility] Address [address] [place] [address] Care Team Providers Care Logging Superintendent Name Role Phone ThangKendrickDiana T [facility] Unavailable Rain Galaviz-C Unavailable Tavia Wyatt MD Unavailable Unavailable Erica Farrell APRN FINANCIAL MANAGEMENT Unavailable Rich Barrett MD Unavailable Neil Kent MD Unavailable Diana Desir [facility] Unavailable [phone] Livan Sharif MD Unavailable Catherine Cm MD Unavailable + Valery Veronica-C Unavailable [phone] Brea Quinn TELEPHONE ASSEMBLER FINANCIAL MANAGEMENT Unavailable Brea Quinn TELEPHONE ASSEMBLER FINANCIAL MANAGEMENT Unavailable Jose Francisco Johnson MD Unavailable Alfonso Renteria MD Unavailable + [phone] Esha Grimm PA-C Primary Care Provider [phone] Radha Lomeli TELEPHONE ASSEMBLER FINANCIAL MANAGEMENT Unavailable FrankieJelena OD Unavailable Pao Joseph RN Unavailable Unavailable Esha Grimm PA-C Unavailable [phone] Valery Veronica PA-C Unavailable [phone] Rey Tay MD Unavailable Duane Rockyanne STEVENS Unavailable Philip Dumont MD Unavailable [phone] Encounter Details Date Type Department Care Team (Late st Contact Info) Description 10/24/2023 MyC Medical Advice [facility] Gastroenterology Clinic [address] [place] [address] Kenneth Denson Social History Tobacco Use Types Packs/Day Years [...] Answer Date Recorded PHQ-2 Score 0 10/25/2023 [facility] - Occupational Stress Questionnaire Answer [...] exercise at this level? 30 min 03/10/2023 [place] Depression Scale Answer Date Recorded [place] Depression Score 5 01/14/2021 Last EPDS Self [...] AM CDT Appointment [facility] [address] [place] [address] Lauren Claudio PA-C [address] [place], [place] [phone] 11/03/2023 8:00 AM CDT Office Visit [address] [phone] Valery Veronica PA-C [address] [place] [address] 11/29/2023 8:00 AM CDT Office Visit [facility] [address] [place] [phone] Esha Grimm PA-C [address] [place] [address] 12/19/2023 11:30 AM CDT Hospital Encounter [facility] 909 [facility] 5th [place] [phone] Rocky Zepeda, [address] [place] [address] 12/19/2023 11:30 AM CDT - 12/19/2023 12:00 PM CDT Surgery [facility] [address] [facility] [address] 5th [place] [phone] Rocky Zepeda, 500 [place], [place] 177795 Esophagoscopy, gastroscopy, duodenoscopy (EGD), combined 01/02/2024 8:00 AM CDT Office Visit [facility] [address] [place] [phone] Lauren Claudio PA-C [address] [place], [place] [phone] Kelli Perez MD [address] [facility] 106 [place], [place] [phone] Scheduled Procedures Name Priority Associated Diagnoses Date/Ti ny ESOPHAGOGASTRODUODENOSCOPY Eosinophilic esophagitis Esophageal dysphagia 12/19/2023 11:30 AM CDT documented as of this encounter Visit Diagnoses Not on filedocumented in this encounter Additional Health Concerns Assessment Noted Time PHQ-9 Depression Total Score: 4 06/20/20 23 8:40 AM TABLEAU DEVELOPER documented as of this encounter Care Teams Logging Superintendent Relationship Specialty Start Date End Date Esha Grimm PA-C [address] [place] [address] PCP - General Family Medicine 05/04/23 Diana Desir, [facility] [address] [place], [place] [address] Pharmacist Pharmacist 04/17/21 Rain Galaviz PA-C [address] [place] [address] [address] [place] [id number] Physician Investigative Agent Dermatology 04/28/21 Tavia Wyatt MD [address] [place] [address] [address] [place] [address] Dermatology 07/14/21 Erica Farrell APRN FINANCIAL MANAGEMENT [address] [place], [place] 68[address] Nurse Practitioner Cardiovascular Disease 09/09/21 Rich Barrett MD [address] [place] [address], [address] [address] Physician Ophthalmology 01/21/22 Neil Kent MD [address] [place] [address] [phone] Dermatology 02/24/22 Diana Desir, [facility] 3033 [place], [place] [address]246 Assigned MTM Pharmacist 04/07/22 Livan Sharif MD [address] [place], [place] [address] Cardiovascular Disease 05/14/22 Catherine Cm MD [address] [place] [address] Cardiovascular Disease 07/21/22 Valery Veronica, PA-C [address] [place] [address] 018065 Physician Investigative Agent Dermatology 07/21/22 Brea Quinn APRN FINANCIAL MANAGEMENT 500 [place] [address] Nurse Practitioner Dermatology 09/21/22 Brea Quinn APRN FINANCIAL MANAGEMENT 6401 [facility] [place] [address] Assigned Surgical Provider 10/09/22 [place] [address] [address] [facility] 300 [place] [address] Assigned Musculoskeletal Provider 10/09/22 Alfonso Renteria MD [facility] [facility] 200 [place], [place] 329356 Assigned Neuroscience Provider 04/02/23 Radha Lomeli APRN FINANCIAL MANAGEMENT 6405 [facility] [address] [place] [address] Assigned Heart and Vascular Provider 05/28/23 Jelena David OD [address] [facility] [place] [address] Ophthalmology 06/15/23 Pao Joseph, VJ Personal Advocate & Liaison (PAL) Nurse 08/01/23 Esha Grimm PA-C [address] [place] [phone] Assigned PCP 07/16/23 Valery Veronica PA-C 909 [place] [address] Physician Investigative Agent Dermatology 09/19/23 Rey Tay MD 909 [place] [address] MD Gastroenterology 09/20/23 Rocky Zepeda DO [address] [place] [address] Physician Gastroenterology 09/20/23 Philip Dumont MD [address] [place] [address] Physician Ophthalmology 09/22/23 documented as of this encounter
--- OUTSIDE RECORDS SUMMARY | 2023-10-28 16:34 | XMS_ITS | Encounter Summary ---
Author Name Unknown Organization [place] Address [address] [place] [address] Care Team Providers Care Risk Lead Name Role Phone ThangKendrickDiana T [facility] Unavailable [phone] Rain Galaviz-C Unavailable Tavia Wyatt MD Unavailable Unavailable Erica Farrell APRN SAMMYING MACHINE OPERATOR Unavailable Rich Barrett MD Unavailable Neil Kent MD Unavailable Diana Desir [facility] Unavailable [phone] Livan Sharif MD Unavailable Catherine Cm MD Unavailable + Valery Veronica-C Unavailable [phone] Brea Quinn PARACHUTE HARNESS RIGGER SAMMYING MACHINE OPERATOR Unavailable Brea Quinn PARACHUTE HARNESS RIGGER SAMMYING MACHINE OPERATOR Unavailable [phone] Jose Francisco Johnson MD Unavailable Alfonso Renteria MD Unavailable + [phone] Esha Grimm PA-C Primary Care Provider Radha Lomeli PARACHUTE HARNESS RIGGER SAMMYING MACHINE OPERATOR Unavailable FrankieJelena OD Unavailable Pao Joseph RN Unavailable Unavailable Esha Grimm PA-C Unavailable [phone] Valery Veronica PA-C Unavailable [phone] Rey Tay MD Unavailable Duane Rocky DO Unavailable Philip Dumont MD Unavailable [phone] Encounter Details Date Type Department Care Team (Late st Contact Info) Description 10/21/2023 [facility] Gastroenterology Clinic [address] 4th [place] [address] Medina Diopview Social History Tobacco Use Types Packs/Day Years [...] often do you attend chur ch or anabaptism services? 1 to 4 times [...] PHQ-2 Score 0 06/20/2023 [facility] - Occupational Stress Questionnaire Answer [...] exercise at this level? 30 min 03/10/2023 [place] Depression Scale Answer Date Recorded [place] Depression Score 5 01/14/2021 Last EPDS Self [...] [facility] [address] [place] [address] Lauren Claudio PA-C [address] [place], [place] [phone] 11/03/2023 8:00 AM CDT Office Visit [address] [phone] Valery Veronica PA-C [address] [place] [address] 11/29/2023 8:00 AM CDT Office Visit [facility] [address] [place] [phone] Esha Grimm PA-C [address] [place] [address] 12/19/2023 11:30 AM CDT Hospital Encounter [facility] 909 [facility] 5th [place] [phone] Rocky Zepeda DO [address] [place] [address] 12/19/2023 11:30 AM CDT - 12/19/2023 12:[address] [facility] 909 [facility] [address] 5th [place] [phone] Rocky Zepeda, 500 [place], [place] 128885 Esophagoscopy, gastroscopy, duodenoscopy (EGD), combined 01/02/2024 8:00 AM CDT Office Visit [facility] [address] [place] [phone] Lauren Claudio PA-C [address] [place], [place] [phone] Kelli Perez MD [address] [phone] Scheduled Procedures Name Priority Associated Diagnoses Date/Ti ga ESOPHAGOGASTRODUODENOSCOPY Eosinophilic esophagitis Esophageal dysphagia 12/19/2023 11:30 AM CDT documented as of this encounter Visit Diagnoses Not on filedocumented in this encounter Additional Health Concerns Assessment Noted Time PHQ-9 Depression Total Score: 4 06/20/20 23 8:40 AM REFRIGERATION 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 documented as of this encounter Care Teams Risk Lead Relationship Specialty Start Date End Date Esha Grimm PA-C [address] [place] [address] PCP - General Family Medicine 05/04/23 Diana Desir, [facility] [address] [place], [place] [address] Pharmacist Pharmacist 04/17/21 Rain Galaviz PA-C [address] [place] [address] [address] [address] [id number] Physician Automated Teller Manager Dermatology 04/28/21 Tavia Wyatt MD [address] [place] [address] DR [address] [facility] [place] [address] Dermatology 07/14/21 Erica Farrell APRN SAMMYING MACHINE OPERATOR [address] [place], [place] 275[address] Nurse Practitioner Cardiovascular Disease 09/09/21 Rich Barrett MD [address] [facility] 9A [place] [address] Physician Ophthalmology 01/21/22 Neil Kent MD 500 [place] [address] Dermatology 02/24/22 [facility] 3033 [place], [place] [address]326 Assigned MTM Pharmacist 04/07/22 Livan Sharif MD [address] [place] [address] Cardiovascular Disease 05/14/22 Catherine Cm MD [address] [place] [address]365 Cardiovascular Disease 07/21/22 Valery Veronica, PA-C [address] [place] [address] 444925 Physician Automated Teller Manager Dermatology 07/21/22 Brea Quinn APRN SAMMYING MACHINE OPERATOR 500 [place] [address] Nurse Practitioner Dermatology 09/21/22 Brea Quinn APRN SAMMYING MACHINE OPERATOR 6401 [facility] [place] [address] Assigned Surgical Provider 10/09/22 [place] [address] [facility] 300 [place] [address] Assigned Musculoskeletal Provider 10/09/22 Alfonso Renteria MD 5775 [facility] 200 [place], [place] 6[address]46 Assigned Neuroscience Provider 04/02/23 Radha Lomeli APRN SAMMYING MACHINE OPERATOR 6405 [facility] [address] [place] [address] Assigned Heart and Vascular Provider 05/28/23 Jelena David OD 3305 [facility] [place] [address] Ophthalmology 06/15/23 Pao Joseph, VJ Personal Advocate & Liaison (PAL) Nurse 08/01/23 Esha Grimm PA-C [address] [place] [phone] Assigned PCP 07/16/23 Valery Veronica PA-C 909 [place] [address] Physician Automated Teller Manager Dermatology 09/19/23 Rey Tay MD [address] [place] [address] MD Gastroenterology 09/20/23 Rocky Zepeda DO [address] [place] [address] Physician Gastroenterology 09/20/23 Philip Dumont MD [address] [place] [address] Physician Ophthalmology 09/22/23 documented as of this encounter
--- OUTSIDE RECORDS SUMMARY | 2023-10-28 16:34 | XMS_ITS | Encounter Summary ---
Author Name Unknown Organization [place] Address [address] [place] [address] Care Team Providers Care Quahogger Name Role Phone ThangKendrickDiana T [facility] Unavailable Rain Galaviz-C Unavailable Tavia Wyatt MD Unavailable Unavailable Erica Farrell APRN DIRECTOR SERVICE Unavailable Rich Barrett MD Unavailable Neil Kent MD Unavailable Diana Desir [facility] Unavailable [phone] Livan Sharif MD Unavailable Catherine Cm MD Unavailable + Valery Veronica-C Unavailable [phone] Brea Quinn WAFFLE MACHINE OPERATOR DIRECTOR SERVICE Unavailable Brea Quinn WAFFLE MACHINE OPERATOR DIRECTOR SERVICE Unavailable Jose Francisco Johnson MD Unavailable Alfonso Renteria MD Unavailable + [phone] Esha Grimm PA-C Primary Care Provider Radha Lomeli WAFFLE MACHINE OPERATOR DIRECTOR SERVICE Unavailable [phone] FrankieJelena OD Unavailable Pao Joseph RN Unavailable Unavailable Esha Grimm PA-C Unavailable Valery Veronica PA-C Unavailable Rey Tay MD Unavailable ZepedaRocky Unavailable Philip Dumont MD Unavailable [phone] Reason for Visit * Reason Onset Date Comments Medication Question 10/21/2023 omeprazole Encounter Details Date Type Department Care Team (Late st Contact Info) Description 10/21/2023 Telephone [facility] Gastroenterology Clinic [address] 4th [place] [address] Meredith Carrera PA-C [address] [place] [address] Medication Question (omeprazole ) Social History Tobacco Use Types Packs/Day [...] often do you attend chur ch or evangelical services? 1 to 4 times per year [...] Answer Date Recorded PHQ-2 Score 0 10/25/2023 [facility] - Occupational Stress Questionnaire Answer Date [...] exercise at this level? 30 min 03/10/2023 [place] Depression Scale Answer Date Recorded [place] Depression Score 5 01/14/2021 Last EPDS Self [...] encounter Miscellaneous Notes * Telephone Encounter - Mayra Rajput - 10/21/2023 4:42 PM CDT M [facility] Call Center Phone Message May a detailed message be left on voicemail: yes Reason for Call: Other: Pt called in asking to speak to a nurse about omeprazole that she is on. Ptdeclined to schedule follow up until she speaks to someone from care team about the medication. Thank you. Action Taken: Message routed to: [facility] GASTROENTEROLOGY ADULT [facility][[id number]] Travel Screening: Not Applicable documented in this encounter Plan of Treatment Upcoming Encounters Date Type Department Care Team (Late st Contact Info) Description 11/01/2023 8:00 AM CDT Appointment [facility] [address] [phone] Lauren Claudio, PAUcheC [address] [place] [address] 11/03/2023 8:00 AM CDT Office Visit [address] [phone] Valery Veronica, PAUcheC 9 [place] [address] 11/29/2023 8:00 AM CDT Office Visit [address] [phone] Esha Grimm PA-C [id number] [place] [phone] 12/19/2023 11:30 AM CDT Hospital Encounter [address] [phone] Rocky Zepeda DO 500 [place], [place] 846985 12/19/2023 11:30 AM CDT - 12/19/2023 12:00 PM CDT Surgery [facility] [address] [place] [phone] Rocky Zepeda DO 500 [place], [place] 461905 Esophagoscopy, gastroscopy, duodenoscopy (EGD), combined 01/02/2024 8:00 AM CDT Office Visit [address] [phone] Lauren Claudio PA-C [address] [place] [address] [phone] Kelli Perez MD [address] [place] [address] [phone] Scheduled Procedures Name Priority Associated Diagnoses Date/Ti nm ESOPHAGOGASTRODUODENOSCOPY Eosinophilic esophagitis Esophageal dysphagia 12/19/2023 11:30 AM CDT documented as of this encounter Visit Diagnoses Not on filedocumented in this encounter Additional Health Concerns Assessment Noted Time PHQ-9 Depression Total Score: 4 06/20/20 23 8:40 AM DENTAL SCHEDULER documented as of this encounter Care Teams Quahogger Relationship Specialty Start Date End Date Esha Grimm PA-C [address] [place] [address] PCP - General Family Medicine 05/04/23 Diana Desir, [facility] [place] [address] Pharmacist Pharmacist 04/17/21 Rain Galaviz PA-C [address] [place] [address] [address] [place] [address] Physician Program Assistant Dermatology 04/28/21 Tavia Wyatt MD [address] [place] [address] [address] [place] [address] Dermatology 07/14/21 Erica Farrell APRN DIRECTOR SERVICE 6405 [facility] [address] [place] [address] Nurse Practitioner Cardiovascular Disease 09/09/21 Rich Barrett MD 516 [facility] 9A [place], [place] [address] Physician Ophthalmology 01/21/22 Neil Kent MD [address] [place] [address] 143825 Dermatology 02/24/22 Diana Desir, [facility] [place] [address] Assigned MTM Pharmacist 04/07/22 Livan Sharif MD [address] [facility] [address] [place] 508105 Cardiovascular Disease 05/14/22 Catherine Cm MD 6405 [facility] [address] [place] 749695 Cardiovascular Disease 07/21/22 Valery Veronica, PA-C [address] [place] [address] 002595 Physician Program Assistant Dermatology 07/21/22 Brea Quinn APRN DIRECTOR SERVICE [address] [place] [address] 233275 Nurse Practitioner Dermatology 09/21/22 Brea Quinn APRN DIRECTOR SERVICE [facility] [place], [place] 988272 Assigned Surgical Provider 10/09/22 [place] [address] [address] Assigned Musculoskeletal Provider 10/09/22 Alfonso Renteria MD [address] [id number] Assigned Neuroscience Provider 04/02/23 Radha Lomeli APRN DIRECTOR SERVICE [address] [place] 044165 Assigned Heart and Vascular Provider 05/28/23 Jelena David OD [address] [facility] [place] [address] Ophthalmology 06/15/23 Pao Joseph, RN Personal Advocate & Liaison (PAL) Nurse 08/01/23 Esha Grimm PA-C [address] [place] [phone] Assigned PCP 07/16/23 Valery Veronica PA-C 909 [place] [address] Physician Program Assistant Dermatology 09/19/23 Rey Tay MD [address] [place] [address] Gastroenterology 09/20/23 Rocky Zepeda DO [address] [place] [address] 316605 Physician Gastroenterology 09/20/23 Philip Dumont MD [address] [place] [address] 458555 Physician Ophthalmology 09/22/23 documented as of this encounter
--- OUTSIDE RECORDS SUMMARY | 2023-10-28 16:34 | XMS_ITS | Encounter Summary ---
Author Name Unknown Organization [place] Address [address] [place] [address] Care Team Providers Care Body Worker Name Role Phone ThangKendrickDiana T [facility] Unavailable [phone] Rain Galaviz-C Unavailable Tavia Wyatt MD Unavailable Unavailable Erica Farrell APRN CAR STEREO INSTALLER Unavailable Rich Barrett MD Unavailable Neil Kent MD Unavailable Diana Desir [facility] Unavailable [phone] Livan Sharif MD Unavailable Catherine Cm MD Unavailable + Valery Veronica-C Unavailable [phone] Brea Quinn TECHNICAL SERVICES SPECIALIST CAR STEREO INSTALLER Unavailable Brea Quinn TECHNICAL SERVICES SPECIALIST CAR STEREO INSTALLER Unavailable [phone] Jose Francisco Johnson MD Unavailable Alfonso Renteria MD Unavailable + [phone] Esha Grimm PA-C Primary Care Provider [phone] Radha Lomeli TECHNICAL SERVICES SPECIALIST CAR STEREO INSTALLER Unavailable FrankieJelena OD Unavailable Pao Joseph RN Unavailable Unavailable Esha Grimm PA-C Unavailable [phone] Valery Veronica PA-C Unavailable [phone] Rey Tay MD Unavailable ZepedaRocky Unavailable Philip Dumont MD Unavailable [phone] Encounter Details Date Type Department Care [...] week 03/10/2023 How often do you attend [facility] or islam services? 1 to 4 [...] Answer Date Recorded PHQ-2 Score 0 06/20/2023 [facility] [place] of Occupat ional Health - Occupational Stress [...] exercise at this level? 30 min 03/10/2023 Cunningham Depression Scale Answer Date Recorded Cunningham Depression Score 5 01/14/2021 Last EPDS Self [...] Info) Description 11/01/2023 8:00 AM CDT Appointment [facility] [address] [place] [address] Lauren Claudio PA-C [address] [place] [address] 11/03/2023 8:00 AM CDT Office Visit [address] [phone] Valery Veronica PA-C [address] [place] [address] 11/29/2023 8:00 AM CDT Office Visit [facility] [address] [place] [phone] Esha Grimm PA-C [address] [place] [address] 12/19/2023 11:30 AM CDT Hospital Encounter [address] [phone] Rocky Zepeda DO 500 [place] [address] 12/19/2023 11:30 AM CDT - 12/19/2023 12:00 PM CDT Surgery [address] [phone] Rocky Zepeda DO 500 [place] [address] Esophagoscopy, gastroscopy, duodenoscopy (EGD), combined 01/02/2024 8:00 AM CDT Office Visit [facility] [address] [place] [address] Lauren Claudio PA-C [address] [place], [place] [phone] Kelli Perez MD [address] [facility] 106 [place], [place] 5[address]24 Scheduled Procedures Name Priority Associated Diagnoses Date/Ti sd ESOPHAGOGASTRODUODENOSCOPY Eosinophilic esophagitis Esophageal dysphagia 12/19/2023 11:30 AM CDT documented as of this encounter Visit Diagnoses Not on filedocumented in this encounter Additional Health Concerns Assessment Noted Time PHQ-9 Depression Total Score: 4 06/20/20 23 8:40 AM SCHEDULE MANAGER documented as of this encounter Care Teams Body Worker Relationship Specialty Start Date End Date Esha Grimm PA-C [address] [place] [phone] PCP - General Family Medicine 05/04/23 Diana Desir, [facility] [address] [place] [address] Pharmacist Pharmacist 04/17/21 Rain Galaviz PA-C [address] [place] [address] [address] [place] [address] Physician Car Dealer Dermatology 04/28/21 Tavia Wyatt MD [address] [place] [address] [address] [address] Dermatology 07/14/21 Erica Farrell APRN CAR STEREO INSTALLER [address] [place] [address] Nurse Practitioner Cardiovascular Disease 09/09/21 Rich Barrett MD 516 [facility] 9A [place] [address] Physician Ophthalmology 01/21/22 Neil Kent MD 500 [place] [address] Dermatology 02/24/22 Diana Desir, [facility] 3033 [place], [place] 749206 Assigned [place] Pharmacist 04/07/22 Livan Sharif MD [address] [facility] [address] [place] [address] Cardiovascular Disease 05/14/22 Catherine Cm MD [address] [facility]00 [place] [address] Cardiovascular Disease 07/21/22 Valery Veronica, PAUcheC 909 [place], [place] 680485 Physician Car Dealer Dermatology 07/21/22 Brea Quinn APRN CAR STEREO INSTALLER 500 [place], [place] [phone] Nurse Practitioner Dermatology 09/21/22 Brea Quinn APRN CAR STEREO INSTALLER 6401 [facility] [place] [address] Assigned Surgical Provider 10/09/22 [place] [address] [place] [facility] 300 [place] [address] Assigned Musculoskeletal Provider 10/09/22 Alfonso Renteria MD [address] [facility] 200 [place], [place] [phone] Assigned Neuroscience Provider 04/02/23 Radha Lomeli APRN CAR STEREO INSTALLER 6405 [facility] [address] [place] [address] Assigned Heart and Vascular Provider 05/28/23 Jelena David OD 3305 [facility] [place] [address] Ophthalmology 06/15/23 Pao Joseph, VJ Personal Advocate & Liaison (PAL) Nurse 08/01/23 Esha Grimm PA-C [address] [place] [phone] Assigned PCP 07/16/23 Valery Veronica PA-C [address] [place] [address] 580445 Physician Car Dealer Dermatology 09/19/23 Rey Tay MD 9 [place], [place] 674685 Gastroenterology 09/20/23 Rocky Zepeda DO [address] [place] [address] [phone] Physician Gastroenterology 09/20/23 Philip Dumont MD [address] [place] [address] 847345 Physician Ophthalmology 09/22/23 documented as of this encounter
--- OUTSIDE RECORDS SUMMARY | 2023-10-28 16:34 | XMS_ITS | Encounter Summary ---
Author Name Unknown Organization [place] Address [address] [place] [address] Care Team Providers Care Digital Marketing Lead Name Role Phone ThangKendrickDiana T [facility] Unavailable [phone] Rain Galaviz-C Unavailable Tavia Wyatt MD Unavailable Unavailable Erica Farrell APRN COMPOSITE ASSEMBLER Unavailable Rich Barrett MD Unavailable Neil Kent MD Unavailable Diana Desir [facility] Unavailable [phone] Livan Sharif MD Unavailable Catherine Cm MD Unavailable + Valery Veronica-C Unavailable [phone] Brea Quinn HANDMADE TILE ARTIST COMPOSITE ASSEMBLER Unavailable Brea Quinn HANDMADE TILE ARTIST COMPOSITE ASSEMBLER Unavailable Jose Francisco Johnson MD Unavailable Alfonso Renteria MD Unavailable + [phone] Esha Grimm PA-C Primary Care Provider Radha Lomeli HANDMADE TILE ARTIST COMPOSITE ASSEMBLER Unavailable [phone] Jelena David OD Unavailable Pao Joseph RN Unavailable Unavailable Esha Grimm PA-C Unavailable [phone] Valery Veronica PA-C Unavailable [phone] Rey Tay MD Unavailable ZepedaRocky woodard Unavailable Philip Dumont MD Unavailable [phone] Reason for Visit * Reason Onset Date Comments Sinus Problem 10/18/2023 Encounter Details Date Type Department Care Team (Late st Contact Info) Description 10/18/2023 Telephone [facility] [address] [place] [address] Esha Grimm PA-C [id number] [place] [phone] Sinus Problem Social History Tobacco Use Types Packs/Day Years [...] Answer Date Recorded PHQ-2 Score 0 06/20/2023 [facility] - [...] exercise at this level? 30 min 03/10/2023 [place] Depression Scale Answer Date Recorded [place] Depression Score 5 01/14/2021 Last EPDS Self [...] Telephone Encounter - Natasha Luis RN - 10/18/2023 8:52 AM CDT Pt calls, had appointment this am but no showed as not able to come due to daughter, discussed sinus issues, see recent urgent care visit, pt refuses triage protocol to update sinus issues, discussedguidelines for sinus, pt declines follow up appointment today, discussed plan per urgent care, pt agrees to this and will follow up prn Natasha Luis RN, BSN [facility] documented in this encounter Plan of Treatment Upcoming Encounters Date Type Department Care Team (Late st Contact Info) Description 11/01/2023 8:00 AM CDT Appointment [facility] Imaging [address] [place] [phone] Lauren Claudio PA-C [address] [place], [place] [phone] 11/03/2023 8:00 AM CDT Office Visit [address] [phone] Valery Veronica PA-C 909 [place] [address] 11/29/2023 8:00 AM CDT Office Visit [facility] [address] [place] [address] Esha Grimm PA-C [address] [place] [phone] 12/19/2023 11:30 AM CDT Hospital Encounter [address] [phone] Rocky Zepeda DO 500 [place], [place] [address]55 12/19/2023 11:30 AM CDT - 12/19/2023 12:00 PM CDT Surgery [address] [phone] Rocky Zepeda DO 500 [place], [place] 840225 Esophagoscopy, gastroscopy, duodenoscopy (EGD), combined 01/02/2024 8:00 AM CDT Office [facility] [address] [phone] Lauren Claudio PA-C [address] [place], [place] [phone] Kelli Perez MD [address] [address] Scheduled Procedures Name Priority Associated Diagnoses Date/Ti oh ESOPHAGOGASTRODUODENOSCOPY Eosinophilic esophagitis Esophageal dysphagia 12/19/2023 11:30 AM CDT documented as of this encounter Visit Diagnoses Not on filedocumented in this encounter Additional Health Concerns Assessment Noted Time PHQ-9 Depression Total Score: 4 06/20/20 23 8:40 AM MEDICAL INSURANCE CLERK documented as of this encounter Care Teams Digital Marketing Lead Relationship Specialty Start Date End Date Esha Grimm PA-C [address] [place] [address] PCP - General Family Medicine 05/04/23 Diana Desir, [facility] [address] [place] [address] Pharmacist Pharmacist 04/17/21 Rain Galaviz PA-C [address] [place] [address] [address] [place] [address] Physician Glazier Structural Glass Dermatology 04/28/21 Tavia Wyatt MD [address] [place] [address] [address] [place] [address] Dermatology 07/14/21 Erica Farrell APRN COMPOSITE ASSEMBLER [address] 2791700 [place] [address] Nurse Practitioner Cardiovascular Disease 09/09/21 Rich Barrett MD [address] [address] Physician Ophthalmology 01/21/22 Neil Kent MD [address] [place] [address] 117985 Dermatology 02/24/22 Diana Desir, [facility] [address] [place] [address] Assigned MTM Pharmacist 04/07/22 Livan Sharif MD [address] [facility] [address] [place] [address] Cardiovascular Disease 05/14/22 Catherine Cm MD [address] [facility] [address] [place] 257205 Cardiovascular Disease 07/21/22 Valery Veronica, PAUcheC [address] [place] [address] 914945 Physician Glazier Structural Glass Dermatology 07/21/22 Brea Quinn APRN COMPOSITE ASSEMBLER [address] [place] [address] 032565 Nurse Practitioner Dermatology 09/21/22 Brea Quinn APRN COMPOSITE ASSEMBLER 6401 [place], [place] 753552 Assigned Surgical Provider 10/09/22 [place] [address] [address] [facility] 300 [place] [address] Assigned Musculoskeletal Provider 10/09/22 Alfonso Renteria MD 5775 [facility] 200 [place], [place] 666846 Assigned Neuroscience Provider 04/02/23 Radha Lomeli APRN COMPOSITE ASSEMBLER [address] [place] 8[address]85 Assigned Heart and Vascular Provider 05/28/23 Jelena David OD 3305 [facility] [place] [address] Ophthalmology 06/15/23 Pao Joseph, RN Personal Advocate & Liaison (PAL) Nurse 08/01/23 Esha Grimm PA-C [address] [place] [address] Assigned PCP 07/16/23 Valery Veronica PA-C [address] [place] [address] 533565 Physician Glazier Structural Glass Dermatology 09/19/23 Rey Tay MD [address] [place] [address] 374145 Gastroenterology 09/20/23 Rocky Zepeda DO [address] [place] [address] 148855 Physician Gastroenterology 09/20/23 Philip Dumont MD [address] [place] [address] 574285 Physician Ophthalmology 09/22/23 documented as of this encounter
--- OUTSIDE RECORDS SUMMARY | 2023-10-28 16:34 | XMS_ITS | Encounter Summary ---
Author Name Unknown Organization [place] Address [address] [place] [address] Care Team Providers Care Ice Puller Name Role Phone ThangKendrickDiana T [facility] Unavailable Rain Galaviz-C Unavailable Tavia Wyatt MD Unavailable Unavailable Erica Farrell APRN HEM MARKER Unavailable Rich Barrett MD Unavailable Neil Kent MD Unavailable Diana Desir [facility] Unavailable [phone] Livan Sharif MD Unavailable Catherine Cm MD Unavailable + Valery Veronica-C Unavailable [phone] Brea Quinn KISS MIXER HEM MARKER Unavailable Brea Quinn KISS MIXER HEM MARKER Unavailable [phone] Jose Francisco Johnson MD Unavailable Alfonso Renteria MD Unavailable + [phone] Esha Grimm PA-C Primary Care Provider Radha Lomeli KISS MIXER HEM MARKER Unavailable FrankieJelena OD Unavailable Pao Joseph RN Unavailable Unavailable Esha Grimm PA-C Unavailable [phone] Valery Veronica PA-C Unavailable [phone] Rey Tay MD Unavailable ZepedaRocky Unavailable Philip Dumont MD Unavailable [phone] Encounter Details Date Type Department Care [...] How often do you attend [facility] or baptism services? 1 to 4 times per year 03/10/2023 Do you belong to any clubs o r organizations such as rastafari groups, unions, fraternal or athletic groups, [...] Date Recorded PHQ-2 Score 0 06/20/2023 [facility] [place] of Occupat ional Health - Occupational Stress [...] exercise at this level? 30 min 03/10/2023 [place] Depression Scale Answer Date Recorded [place] Depression Score 5 01/14/2021 Last EPDS Self [...] Info) Description 11/01/2023 8:00 AM CDT Appointment [facility] [address] [place] [address] Lauren Claudio PA-C [address] [place] [address] 11/03/2023 8:00 AM CDT Office Visit [address] [phone] Valery Veronica PA-C [address] [place] [address] 11/29/2023 8:00 AM CDT Office Visit [facility] [address] [place] [phone] Esha Grimm PA-C [address] [place] [address] 12/19/2023 11:30 AM CDT Hospital Encounter [address] [phone] Rocky Zepeda DO 500 [place] [address] 12/19/2023 11:30 AM CDT - 12/19/2023 12:00 PM CDT Surgery [address] [phone] Rocky Zepeda DO 500 [place] [address] Esophagoscopy, gastroscopy, duodenoscopy (EGD), combined 01/02/2024 8:00 AM CDT Office Visit [facility] [address] [place] [address] Lauren Claudio PA-C [address] [place], [place] [phone] Kelli Perez MD [address] [facility] 106 [place], [place] 307584 Scheduled Procedures Name Priority Associated Diagnoses Date/Ti va ESOPHAGOGASTRODUODENOSCOPY Eosinophilic esophagitis Esophageal dysphagia 12/19/2023 11:30 AM CDT documented as of this encounter Visit Diagnoses Not on filedocumented in this encounter Additional Health Concerns Assessment Noted Time PHQ-9 Depression Total Score: 4 06/20/20 23 8:40 AM POST HOLE DIGGER documented as of this encounter Care Teams Ice Puller Relationship Specialty Start Date End Date Esha Grimm PA-C [address] [place] [phone] PCP - General Family Medicine 05/04/23 Diana Desir, [facility] [address] [place] [address] Pharmacist Pharmacist 04/17/21 Rain Galaviz PA-C [address] [place] [address] [address] [address] Physician Coater Slate Dermatology 04/28/21 Tavia Wyatt MD [address] [place] [address] [address]AN[address] [address] Dermatology 07/14/21 Erica Farrell APRN HEM MARKER [address] [place] [address] Nurse Practitioner Cardiovascular Disease 09/09/21 Rich Barrett MD [address] [facility] 9A [place] [address] Physician Ophthalmology 01/21/22 Neil Kent MD 500 [place] [address] Dermatology 02/24/22 Diana Desir, [facility] 3033 [place], [place] 884926 Assigned [place] Pharmacist 04/07/22 Livan Sharif MD [address] [facility] [address] [place] [address] Cardiovascular Disease 05/14/22 Catherine Cm MD [address] [facility]00 [place] [address] Cardiovascular Disease 07/21/22 Valery Veronica, PAUcheC 909 [place], [place] 912045 Physician Coater Slate Dermatology 07/21/22 Brea Quinn APRN HEM MARKER 500 [place], [place] [phone] Nurse Practitioner Dermatology 09/21/22 Brea Quinn APRN HEM MARKER 6401 [facility] [place] [facility] [place] [address] Assigned Surgical Provider 10/09/22 [place] [address] [place] [facility] 300 [place] [address] Assigned Musculoskeletal Provider 10/09/22 Alfonso Renteria MD [address] [facility] 200 [place], [place] 519[address]16 Assigned Neuroscience Provider 04/02/23 Radha Lomeli APRN HEM MARKER 6405 [facility] [address] [place] [address] Assigned Heart and Vascular Provider 05/28/23 Jelena David OD [address] [facility] [place] [address] Ophthalmology 06/15/23 Pao Joseph, VJ Personal Advocate & Liaison (PAL) Nurse 08/01/23 Esha Grimm PA-C [address] [place] [address]283 Assigned PCP 07/16/23 Valery Veronica PA-C [address] [place] [address] 720945 Physician Coater Slate Dermatology 09/19/23 Rey Tay MD 9 [place], [place] 889535 Gastroenterology 09/20/23 Rocky Zepeda DO [address] [place] [address] [phone] Physician Gastroenterology 09/20/23 Philip Dumont MD [address] [place] [address] 619695 Physician Ophthalmology 09/22/23 documented as of this encounter
--- OUTSIDE RECORDS SUMMARY | 2023-10-28 16:35 | XMS_ITS | Encounter Summary ---
Author Name Unknown Organization [place] Address [address] [place] [address] Care Team Providers Care Landscape Gardener Name Role Phone ThangKendrickDiana T [facility] Unavailable Rain Galaviz-C Unavailable Tavia Wyatt MD Unavailable Unavailable Erica Farrell APRN BENZENE WASHER Unavailable Rich Barrett MD Unavailable Neil Kent MD Unavailable Diana Desir [facility] Unavailable [phone] Livan Sharif MD Unavailable Catherine Cm MD Unavailable + Valery Veronica-C Unavailable [phone] Brea Quinn COMPLIANCE REVIEW SPECIALIST BENZENE WASHER Unavailable Brea Quinn COMPLIANCE REVIEW SPECIALIST BENZENE WASHER Unavailable [phone] Jose Francisco Johnson MD Unavailable Alfonso Renteria MD Unavailable + [phone] Esha Grimm PA-C Primary Care Provider [phone] Radha Lomeli COMPLIANCE REVIEW SPECIALIST BENZENE WASHER Unavailable FrankieJelena OD Unavailable [phone] Pao Joseph RN Unavailable Unavailable Esha Grimm PA-C Unavailable [phone] Valery Veronica PA-C Unavailable [phone] Rey Tay MD Unavailable DuaneRocky Unavailable Philip Dumont MD Unavailable [phone] Encounter Details Date Type Department Care [...] medical care at [facility] or voodoo services? 1 to 4 times [...] Date Recorded PHQ-2 Score 0 06/20/2023 [facility] [place] of Occupat ional Health - Occupational Stress [...] exercise at this level? 30 min 03/10/2023 [place] Depression Scale Answer Date Recorded [place] Depression Score 5 01/14/2021 Last EPDS Self [...] Info) Description 11/01/2023 8:00 AM CDT Appointment [facility] [address] [place] [address] Lauren Claudio PA-C [address] [place] [address] 11/03/2023 8:00 AM CDT Office Visit [address] [phone] Valery Veronica PA-C [address] [place] [address] 11/29/2023 8:00 AM CDT Office Visit [facility] [place] [facility] [address] [place] [phone] Esha Grimm PA-C [address] [place] [address] 12/19/2023 11:30 AM CDT Hospital Encounter [address] [phone] Rocky Zepeda DO 500 [place] [address] 12/19/2023 11:30 AM CDT - 12/19/2023 12:00 PM CDT Surgery [address] [phone] Rocky Zepeda DO 500 [place] [address] Esophagoscopy, gastroscopy, duodenoscopy (EGD), combined 01/02/2024 8:00 AM CDT Office [facility] [address] [place] [address] Lauren Claudio PA-C [address] [place], [place] [phone] Kelli Perez MD [address] [facility] 106 [place], [place] 643714 Scheduled Procedures Name Priority Associated Diagnoses Date/Ti pr ESOPHAGOGASTRODUODENOSCOPY Eosinophilic esophagitis Esophageal dysphagia 12/19/2023 11:30 AM CDT documented as of this encounter Visit Diagnoses Not on filedocumented in this encounter Additional Health Concerns Assessment Noted Time PHQ-9 Depression Total Score: 4 06/20/20 23 8:40 AM MACHINE PAN GREASER documented as of this encounter Care Teams Landscape Gardener Relationship Specialty Start Date End Date Esha Grimm PA-C [address] [place] [phone] PCP - General Family Medicine 05/04/23 Diana Desir, [facility] [address] [place] [address] Pharmacist Pharmacist 04/17/21 Rain Galaviz PA-C [address] [place] [address] [address] [address] Physician Metal Sprayer Machined Parts Dermatology 04/28/21 Tavia Wyatt MD [address] [place] [address] DR [address] [place] [address] Dermatology 07/14/21 Erica Farrell APRN BENZENE WASHER [address] [place] [address] Nurse Practitioner Cardiovascular Disease 09/09/21 Rich Barrett MD 516 [facility] 9A [place] [address] Physician Ophthalmology 01/21/22 Neil Kent MD 500 [place] [address] Dermatology 02/24/22 Diana Desir, [facility] 3033 [place], [place] 799866 Assigned [place] Pharmacist 04/07/22 Livan Sharif MD [address] [facility] [address] [place] [address] Cardiovascular Disease 05/14/22 Catherine Cm MD [address] [email or web address] [place] [address] Cardiovascular Disease 07/21/22 Valery Veronica, PAUcheC 909 [place], [place] 695935 Physician Metal Sprayer Machined Parts Dermatology 07/21/22 Brea Quinn APRN BENZENE WASHER 500 [place], [place] [phone] Nurse Practitioner Dermatology 09/21/22 Brea Quinn APRN BENZENE WASHER 6401 [facility] [place] [address] Assigned Surgical Provider 10/09/22 [place] [address] [address] [facility] 300 [place] [address] Assigned Musculoskeletal Provider 10/09/22 Alfonso Renteria MD [address] [facility] 200 [place], [place] [address] Assigned Neuroscience Provider 04/02/23 Radha Lomeli APRN BENZENE WASHER 6405 [facility] [address] [place] [address] Assigned Heart and Vascular Provider 05/28/23 Jelena David OD [address] [facility] [place] [address] Ophthalmology 06/15/23 Pao Joseph, VJ Personal Advocate & Liaison (PAL) Nurse 08/01/23 Esha Grimm PA-C [address] [place] [phone] Assigned PCP 07/16/23 Valery Veronica PA-C [address] [place] [address] 652165 Physician Metal Sprayer Machined Parts Dermatology 09/19/23 Rey Tay MD 9 [place], [place] 468935 Gastroenterology 09/20/23 Rocky Zepeda DO [address] [place] [address] [phone] Physician Gastroenterology 09/20/23 Philip Dumont MD [address] [place] [address] 906685 Physician Ophthalmology 09/22/23 documented as of this encounter
--- OUTSIDE RECORDS SUMMARY | 2023-10-28 16:35 | XMS_ITS | Encounter Summary ---
Author Name Unknown Organization [facility] Address [address] [place] [address] Care Team Providers Care Digital Assistant Name Role Phone ThangKendrickDiana T [facility] Unavailable Rain Galaviz-C Unavailable Tavia Wyatt MD Unavailable Unavailable Erica Farrell APRN TERMINAL SUPERVISOR Unavailable Rich Barrett MD Unavailable Neil Kent MD Unavailable Diana Dseir [facility] Unavailable [phone] Livan Sharif MD Unavailable Catherine Cm MD Unavailable + Valery Veronica-C Unavailable [phone] Brea Quinn SENIOR BUSINESS INTELLIGENCE ANALYST TERMINAL SUPERVISOR Unavailable Brea Quinn SENIOR BUSINESS INTELLIGENCE ANALYST TERMINAL SUPERVISOR Unavailable Jose Francisco Johnson MD Unavailable Alfonso Renteria MD Unavailable + [phone] Esha Grimm PA-C Primary Care Provider Radha Lomeli SENIOR BUSINESS INTELLIGENCE ANALYST TERMINAL SUPERVISOR Unavailable FrankieJelena OD Unavailable Pao Joseph RN Unavailable Unavailable Esha Grimm PA-C Unavailable [phone] Valery Veronica PA-C Unavailable [phone] Rey Tay MD Unavailable ZepedaRocky Unavailable Philip Dumont MD Unavailable [phone] Encounter Details Date Type Department Care [...] 03/10/2023 How often do you attend [facility] or zoroastrianism services? 1 to 4 times per year [...] Date Recorded PHQ-2 Score 0 06/20/2023 [facility] [place] [facility] Occupat [facility] - Occupational Stress [...] exercise at this level? 30 min 03/10/2023 [place] Depression Scale Answer Date Recorded [place] Depression Score 5 01/14/2021 Last EPDS Self [...] Info) Description 11/01/2023 8:00 AM CDT Appointment [facility] [address] [place] [address] Lauren Claudio PA-C [address] [place] [address] 11/03/2023 8:00 AM CDT Office Visit [address] [phone] Valery Veronica PA-C [address] [place] [address] 11/29/2023 8:00 AM CDT Office Visit [facility] [address] [place] [phone] Esha Grimm PA-C [address] [place] [phone] 12/19/2023 11:30 AM CDT Hospital Encounter [address] [phone] Rocky Zepeda DO 500 [place] [address] 12/19/2023 11:30 AM CDT - 12/19/2023 12:00 PM CDT Surgery [address] [phone] Rocky Zepeda DO 500 [place] [address] Esophagoscopy, gastroscopy, duodenoscopy (EGD), combined 01/02/2024 8:00 AM CDT Office Visit [facility] [address] [place] [address] Lauren Claudio PA-C [address] [place], [place] [phone] Kelli Perez MD [address] [facility] 106 [place], [place] [address] Scheduled Procedures Name Priority Associated Diagnoses Date/Ti wy ESOPHAGOGASTRODUODENOSCOPY Eosinophilic esophagitis Esophageal dysphagia 12/19/2023 11:30 AM CDT documented as of this encounter Visit Diagnoses Not on filedocumented in this encounter Additional Health Concerns Assessment Noted Time PHQ-9 Depression Total Score: 4 06/20/20 23 8:40 AM INFORMATION CLERK [employer] documented as of this encounter Care Teams Digital Assistant Relationship Specialty Start Date End Date Esha Grimm PA-C [address] [place] [phone] PCP - General Family Medicine 05/04/23 Diana Desir, [facility] [address] [place] [address] Pharmacist Pharmacist 04/17/21 Rain Galaviz PA-C [address] [place] [address] [address] [place] [address] Physician Yeast Culture Operator Dermatology 04/28/21 Tavia Wyatt MD [address] [place] [address] [address] [place] [address] Dermatology 07/14/21 Erica Farrell APRN TERMINAL SUPERVISOR [address] [place] [address] Nurse Practitioner Cardiovascular Disease 09/09/21 Rich Barrett MD 516 [facility] 9A [place] [address] Physician Ophthalmology 01/21/22 Neil Kent MD 500 [place] [address] Dermatology 02/24/22 Diana Desir, [facility] 3033 [place], [place] 990056 Assigned [place] Pharmacist 04/07/22 Livan Sharif MD [address] [facility] [address] [place] [address] Cardiovascular Disease 05/14/22 Catherine Cm MD [address] [facility]00 [place] [address] Cardiovascular Disease 07/21/22 Valery Veronica, PAUcheC 909 [place], [place] 514875 Physician Yeast Culture Operator Dermatology 07/21/22 Brea Quinn APRN TERMINAL SUPERVISOR 500 [place], [place] [phone] Nurse Practitioner Dermatology 09/21/22 Brea Quinn APRN TERMINAL SUPERVISOR 6401 [facility] [place] [address] Assigned Surgical Provider 10/09/22 [place] [address] [place] [facility] 300 [place] [address] Assigned Musculoskeletal Provider 10/09/22 Alfonso Renteria MD [address] [facility] 200 [place], [place] [phone] Assigned Neuroscience Provider 04/02/23 Radha Lomeli APRN TERMINAL SUPERVISOR 6405 [facility] [address] [place] [address] Assigned Heart and Vascular Provider 05/28/23 Jelnea David OD [address] [facility] [place] [address] Ophthalmology 06/15/23 Pao Joseph, VJ Personal Advocate & Liaison (PAL) Nurse 08/01/23 Esha Grimm PA-C [address] [place] [phone] Assigned PCP 07/16/23 Valery Veronica PA-C [address] [place] [address] Physician Yeast Culture Operator Dermatology 09/19/23 Rey Tay MD 9 [place], [place] 721525 Gastroenterology 09/20/23 Rocky Zepeda DO [address] [place] [address] [phone] Physician Gastroenterology 09/20/23 Philip Dumont MD [address] [place] [address] 969015 Physician Ophthalmology 09/22/23 documented as of this encounter
--- OUTSIDE RECORDS SUMMARY | 2023-10-28 16:35 | XMS_ITS | Encounter Summary ---
Author Name Unknown Organization [facility] Address [address] [place] [address] Care Team Providers Care Medical Donation Professional Name Role Phone ThangKendrickDiana T [facility] Unavailable Rain Galaviz-C Unavailable [phone] Tavia Wyatt MD Unavailable Unavailable Erica Farrell APRN NITROGLYCERIN SEPARATOR OPERATOR Unavailable Rich Barrett MD Unavailable Neil Kent MD Unavailable Diana Desir [facility] Unavailable [phone] Livan Sharif MD Unavailable Catherine Cm MD Unavailable + Valery Veronica-C Unavailable [phone] Brea Quinn CHRISTIAN SCIENCE READER NITROGLYCERIN SEPARATOR OPERATOR Unavailable [phone] Brea Quinn CHRISTIAN SCIENCE READER NITROGLYCERIN SEPARATOR OPERATOR Unavailable Jose Francisco Johnson MD Unavailable Alfonso Renteria MD Unavailable + [phone] Esha Grimm PA-C Primary Care Provider Radha Lomeli CHRISTIAN SCIENCE READER NITROGLYCERIN SEPARATOR OPERATOR Unavailable [phone] FrankieJelena OD Unavailable Pao Joseph RN Unavailable Unavailable Esha Grimm PA-C Unavailable [phone] Valery Veronica PA-C Unavailable Rey Tay MD Unavailable Rocky Zepeda DO Unavailable Philip Dumont MD Unavailable [phone] Reason for Visit * Reason Onset Date Comments Call Back 09/29/2023 Discuss being se en sooner (increased issues with swallowing) Encounter Details Date Type Department Care Team (Late st Contact Info) Description 09/29/2023 Telephone [facility] [place] 624859 [facility] 4th [place] [address] Rocky Zepeda DO [address] [place] [address] Call Back (Discuss being seen [...] often do you attend chur ch or church services? 1 to 4 times per year 03/10/2023 Do you belong to any clubs o r organizations such as denominational groups, unions, fraternal or athletic groups, [...] PHQ-2 Score 0 06/20/2023 [facility] - Occupational Stress Questionnaire Answer [...] exercise at this level? 30 min 03/10/2023 [place] Depression Scale Answer Date Recorded [place] Depression Score 5 01/14/2021 Last EPDS Self [...] Returned pt call and left detailed vm. Manager Cardiac messaged regarding getting pt in sooner to esophageal clinic for confirmed EoE with symptoms. * Telephone Encounter - Barbara Ayers - 09/29/2023 1:25 PM CDT [facility] Call Center Phone Message May a detailed message be left on voicemail: yes Reason for Call: Other: Pt is requesting a call back please to discuss being seen sooner then the first available visit. Pt states she is having increased issues swallowing and would also like to discuss if she should be seen with an network development coordinator. Please reach out to discuss. Thank you! Action Taken: Message routed to: [facility] GI Travel Screening: Not Applicable documented in this encounter Plan of Treatment Upcoming Encounters Date Type Department Care Team (Late st Contact Info) Description 11/01/2023 8:00 AM CDT Appointment [facility] [address] [place] [address] Lauren Claudio, PABaldo [address] [place] [address] 11/03/2023 8:00 AM CDT Office Visit [address] [phone] Valery Veronica PA-C [address] [place] [address] 11/29/2023 8:00 AM CDT Office Visit [facility] [address] [place] [phone] Esha Grimm PA-C [address] [place] [phone] 12/19/2023 11:30 AM CDT Hospital Encounter [address] [phone] Rocky Zepeda DO 500 [place], [place] [address] 12/19/2023 11:30 AM CDT - 12/19/2023 12:00 PM CDT Surgery [address] [phone] Rocky Zepeda DO 500 [place] [address] Esophagoscopy, gastroscopy, duodenoscopy (EGD), combined 01/02/2024 8:00 AM CDT Office Visit [facility] [address] [phone] Lauren Claudio PA-C [address] [place] [address] Kelli Perez MD [address] [facility] 106 [place], [place] 5419[address] Scheduled Procedures Name Priority Associated Diagnoses Date/Ti ri ESOPHAGOGASTRODUODENOSCOPY Eosinophilic esophagitis Esophageal dysphagia 12/19/2023 11:30 AM CDT documented as of this encounter Visit Diagnoses Not on filedocumented in this encounter Additional Health Concerns Assessment Noted Time PHQ-9 Depression Total Score: 4 06/20/20 23 8:40 AM CRYPTOLOGIC SUPERVISOR documented as of this encounter Care Teams Medical Donation Professional Relationship Specialty Start Date End Date Esha Grimm PA-C [address] [place] [phone] PCP - General Family Medicine 05/04/23 [facility] 3033 [place] [address] Pharmacist Pharmacist 04/17/21 Rain Galaviz PA-C [address] [place] [address] [address] [place] [address] Physician Asbestos Surveyor Dermatology 04/28/21 Tavia Wyatt MD [address] [place] [address] [address] [place] [address] Dermatology 07/14/21 Erica Farrell APRN NITROGLYCERIN SEPARATOR OPERATOR 6405 [facility] [address] [place], [place] 5[address] Nurse Practitioner Cardiovascular Disease 09/09/21 Rich Barrett MD 516 [facility] 9A [place], [place] [address] Physician Ophthalmology 01/21/22 Neil Kent MD 500 [place], [place] 240505 Dermatology 02/24/22 Diana Desir, [facility] 3033 [place], [place] 340216 Assigned MTM Pharmacist 04/07/22 Livan Sharif MD [address] [facility]00 [place] 7[address] Cardiovascular Disease 05/14/22 Catherine Cm MD [address] [facility] [place] 2[address] Cardiovascular Disease 07/21/22 Valery Veronica, PA-C 909 [place], [place] 06[address] Physician Asbestos Surveyor Dermatology 07/21/22 Brea Quinn APRN NITROGLYCERIN SEPARATOR OPERATOR 500 [place] [address] Nurse Practitioner Dermatology 09/21/22 Brea Quinn APRN NITROGLYCERIN SEPARATOR OPERATOR 6401 [facility] [place] 934222 Assigned Surgical Provider 10/09/22 [place] [address] [place] [address] Assigned Musculoskeletal Provider 10/09/22 Alfonso Renteria MD [address] [place] [address] Assigned Neuroscience Provider 04/02/23 Radha Lomeli APRN NITROGLYCERIN SEPARATOR OPERATOR 6405 [facility] [address] [place] [address] Assigned Heart and Vascular Provider 05/28/23 Jelena David OD [address] [place] [address] Ophthalmology 06/15/23 Pao Joseph, VJ Personal Advocate & Liaison (PAL) Nurse 08/01/23 Esha Grimm PAUcheC [address] [place] [phone] Assigned PCP 07/16/23 Valery Veronica PAUcheC [address] [place] [address] 418785 Physician Asbestos Surveyor Dermatology 09/19/23 Rey Tay MD [address] [place] [address] 652845 Gastroenterology 09/20/23 Rocky Zepeda DO [address] [place] [address] 553165 Physician Gastroenterology 09/20/23 Philip Dumont MD [address] [place] [address] Physician Ophthalmology 09/22/23 documented as of this encounter
--- OUTSIDE RECORDS SUMMARY | 2023-10-28 16:35 | XMS_ITS | Encounter Summary ---
Author Name Unknown Organization [facility] Address [address] [place] [address] Care Team Providers Care Load Mixer Name Role Phone ThangKendrickDiana T [facility] Unavailable Rain Galaviz-C Unavailable Tavia Wyatt MD Unavailable Unavailable Erica Farrell APRN PURIFICATION OPERATOR Unavailable Rich Barrett MD Unavailable Neil Kent MD Unavailable Diana Desir [facility] Unavailable [phone] Livan Sharif MD Unavailable Catherine Cm MD Unavailable + Valery Veronica-C Unavailable [phone] Brea Quinn SILVER MINER PURIFICATION OPERATOR Unavailable [phone] Brea Quinn SILVER MINER PURIFICATION OPERATOR Unavailable Jose Francisco Johnson MD Unavailable Alfonso Renteria MD Unavailable + [phone] Esha Grimm PA-C Primary Care Provider Radha Lomeli SILVER MINER PURIFICATION OPERATOR Unavailable FrankieJelena OD Unavailable [phone] Pao Joseph RN Unavailable Unavailable Esha Grimm PA-C Unavailable [phone] Valery Veronica PA-C Unavailable Rey Tay MD Unavailable Rocky Zepeda DO Unavailable Philip Dumont MD Unavailable [phone] Reason for Visit * Reason Onset Date Comments Previsit 10/06/2023 Encounter Details Date Type Department Care Team (Late st Contact Info) Description 10/06/2023 PRE VISIT [facility] [address]th [place] [address] Rocky Zepeda DO 500 [place] [address] Previsit Social History Tobacco Use [...] often do you attend chur ch or mandaeism services? 1 to 4 times [...] exercise at this level? 30 min 03/10/2023 [place] Depression Scale Answer Date Recorded [place] Depression Score 5 01/14/2021 Last EPDS Self [...] Notes * Telephone Encounter - Birgit Melvin - 10/04/2023 10:14 AM CDT REFERRAL INFORMATION: Referring Provider: Rey Tay MD Referring Clinic: [facility] GI Reason for Visit/Diagnosis: eosinophilic esophagitis FUTURE VISIT INFORMATION: Appointment Date: 10/06/23 Appointment Time: 7:30 AM NOTES STATUS DETAILS OFFICE NOTE from Referring Provider Internal 09/20/23 Result Note with Rey Tay MD OFFICE NOTE from Other Specialist Internal 09/28/23 - Nurse Triage with Yuliana Tay RN at [facility] Nurse Advisors 06/28/23 - UC OV with Amaris Pascal PA-C at [facility] 04/18/23 - PCC OV with Lauren Claudio PA-C at [facility] 12/17/21 - Nurse Triage with Marija Edgar APRN CNP at [facility] HOSPITAL DISCHARGE SUMMARY/ ED VISITS Internal 05/19/23 - [facility] ED visit with Medhat Neal MD 01/18/21 - [facility] ED visit with Francois Caputo PA-C [...] 11/01/2023 8:00 AM CDT Appointment [facility] Imaging [address] [place] [address] Lauren Claudio PA-C [address] [place], [place] [phone] 11/03/2023 8:00 AM CDT Office Visit [address] [phone] Valery Veronica PA-C [address] [place] [address] 11/29/2023 8:00 AM CDT Office Visit [facility] [address] [place] [phone] Esha Grimm PA-C [address] [place] [phone] 12/19/2023 11:30 AM CDT Hospital Encounter [address] [phone] Rocky Zepeda DO [address] [place] [address] 12/19/2023 11:30 AM CDT - 12/19/2023 12:00 PM CDT Surgery [address] [phone] ZepedaRocky woodard, DO 500 [place], [place] 970565 Esophagoscopy, gastroscopy, duodenoscopy (EGD), combined 01/02/2024 8:00 AM CDT Office Visit [facility] [address] [place] [phone] Lauren Claudio PA-C [address] [place], [place] [phone] Kelli Perez MD [address] [place] [address]84 Scheduled Procedures Name Priority Associated Diagnoses Date/Ti ia ESOPHAGOGASTRODUODENOSCOPY Eosinophilic esophagitis Esophageal dysphagia 12/19/2023 11:30 AM CDT documented as of this encounter Visit Diagnoses Not on filedocumented in this encounter Additional Health Concerns Assessment Noted Time PHQ-9 Depression Total Score: 4 06/20/20 23 8:40 AM MANAGER FOOD BEVERAGE documented as of this encounter Care Teams Load Mixer Relationship Specialty Start Date End Date Esha Grimm PA-C [address] [place] [phone] PCP - General Family Medicine 05/04/23 Diana Desir, [facility] [address] [place] [address] Pharmacist Pharmacist 04/17/21 Rain Galaviz PA-C [address] [place] [address] [address] [place] [address] Physician Boiling House Oiler Dermatology 04/28/21 Tavia Wyatt MD [address] [place] [address] [address] [place] [address] Dermatology 07/14/21 Erica Farrell APRN PURIFICATION OPERATOR [address] [place], [place] [address] Nurse Practitioner Cardiovascular Disease 09/09/21 Rich Barrett MD 516 [facility] 9A [place], [place] [address] Physician Ophthalmology 01/21/22 Neil Kent MD 500 [place], [place] 746295 Dermatology 02/24/22 [facility] 3033 [place], [place] 6[address]266 Assigned MTM Pharmacist 04/07/22 Livan Sharif MD [address] [place], [place] 4[address] Cardiovascular Disease 05/14/22 Catherine Cm MD [address] 424[address] Cardiovascular Disease 07/21/22 Valery Veronica, PA-C [address] [place] [address] 342485 Physician Boiling House Oiler Dermatology 07/21/22 Brea Quinn APRN PURIFICATION OPERATOR 500 [place] [address] Nurse Practitioner Dermatology 09/21/22 Brea Quinn APRN PURIFICATION OPERATOR 6401 [facility] [place] [address] Assigned Surgical Provider 10/09/22 [place] [address] [address] [place] [address] Assigned Musculoskeletal Provider 10/09/22 Alfonso Renteria MD [address] [facility] 200 [place] [address] Assigned Neuroscience Provider 04/02/23 Radha Lomeli APRN PURIFICATION OPERATOR [address] [address] Assigned Heart and Vascular Provider 05/28/23 Jelena Daivd OD [address] [place] [address] Ophthalmology 06/15/23 Pao Joseph, VJ Personal Advocate & Liaison (PAL) Nurse 08/01/23 Esha Grimm PA-C [address] [place] [address] Assigned PCP 07/16/23 Valery Veronica PA-C [address] [place] [address] Physician Boiling House Oiler Dermatology 09/19/23 Rey Tay MD [address] [place] [address] Gastroenterology 09/20/23 Rocky Zepeda DO [address] [place] [address] 404865 Physician Gastroenterology 09/20/23 Philip Dumont MD [address] [place] [address] Physician Ophthalmology 09/22/23 documented as of this encounter
--- OUTSIDE RECORDS SUMMARY | 2023-10-28 16:35 | XMS_ITS | Encounter Summary ---
Author Name Unknown Organization [place] Address [address] [place] [address] Care Team Providers Care President & Ceo [employer] Name Role Phone ThangKendrickDiana T [facility] Unavailable Rain Galaviz-C Unavailable [phone] Tavia Wyatt MD Unavailable Unavailable Erica Farrell APRN SUBWAREHOUSE SUPERVISOR Unavailable Rich Barrett MD Unavailable Neil Kent MD Unavailable Diana Desir [facility] Unavailable [phone] Livan Sharif MD Unavailable Catherine Cm MD Unavailable + Valery Veronica-C Unavailable [phone] Brea Quinn RADIO MAINTAINER SUBWAREHOUSE SUPERVISOR Unavailable [phone] Brea Quinn RADIO MAINTAINER SUBWAREHOUSE SUPERVISOR Unavailable Jose Francisco Johnson MD Unavailable Alfonso Renteria MD Unavailable + [phone] Esha Grimm PA-C Primary Care Provider [phone] Radha Lomeli RADIO MAINTAINER SUBWAREHOUSE SUPERVISOR Unavailable Frankie Jelena Garcia OD Unavailable Pao Joseph RN Unavailable Unavailable Alfa Eshalincoln Medina PA-C Unavailable [phone] Valery Veronica PA-C Unavailable [phone] Rey Tay MD Unavailable DuaneRocky Unavailable Philip Dumont MD Unavailable [phone] Reason for Visit * Reason Comments [...] Description 10/05/2023 11:00 AM CDT Office Visit [facility] [place] [address] [place] [address] Amalia Zayas MD [address] [place] [place] [address] Vulvovaginal candidiasis (Primary Dx); Dysuria; [...] How often do you attend chur or uatsdin services? 1 to 4 times [...] Answer Date Recorded PHQ-2 Score 0 06/20/2023 [facility] of Occupat ional Health [...] at this level? 30 min 03/10/2023 [place] Depression Scale Answer Date Recorded [place] Depression Score 5 01/14/2021 Last EPDS Self [...] Body Mass Index 29.86 09/07/2023 6:20 PM V BELT INSPECTOR documented in this encounter Patient Instructions * [...] you. Recommended discussing recurrent BV with her plan manager. SUBJECTIVE: Kim Johnson is a 23 year [...] Info) Description 11/01/2023 8:00 AM CDT Appointment [facility] [address] [address] Lauren Claudio PA-C [address] [place] [address] 11/03/2023 8:00 AM CDT Office Visit [facility] 830 [place] [phone] Valery Veronica PA-C 909 [place] [address] 11/29/2023 8:00 AM CDT Office Visit [facility] [address] [place] [phone] Esha Grimm PA-C [address] [place] [phone] 12/19/2023 11:30 AM CDT Hospital Encounter [address] [phone] Rocky Zepeda DO 500 [place] [address] 12/19/2023 11:30 AM CDT - 12/19/2023 12:00 PM CDT Surgery [address] [phone] Rocky Zepeda DO 500 [place] [address] Esophagoscopy, gastroscopy, duodenoscopy (EGD), combined 01/02/2024 8:00 AM CDT Office Visit [facility] [address] [place] [address] Lauren Claudio PA-C [address] [place], [place] [phone] Kelli Perez MD [address] [place] [address] 149614 Scheduled Procedures Name Priority Associated Diagnoses Date/Ti [...] Xpress Strep A test, performed on the [employer], is a rapid, qualitative in vitro [...] - MICRO GENERAL ORDERABLES Performing Organization Address City/[facility]/ZIP Co de Phone Number [facility] Inf. Diseases Diag. Lab [address] [facility] [place], [place] [phone] * Urine Culture (10/05/2023 11:41 AM CDT) Culture <10,000 CFU/mL Mixture of Urogenital Darlene 10/06/2023 11:51 AM CDT [facility] Urine URINE SPECIMEN OBTAINED BY CLEAN CATCH PROCEDURE / Unknown Non-blood Collection / Unknown 10/05/2023 11:41 AM CDT 10/05/2023 11:52 AM CDT Amalia Zayas MD LAB - MICRO GENERAL ORDERABLES [facility] Inf. Diseases Diag. Lab [address] [facility], [address] [address] * (ABNORMAL) Urine Microscopic Exam (10/05/2023 11:41 [...] Budding Yeast Urine Few(A) None Seen /HPF ERINA 10/05/2023 11:56 AM CDT LV LABORATORY Hyphal [...] MD LAB - URINE ORDERABL ES LABORATORY [address] (no room number, 1st floor of clinic) [place] [id number], [facility] [phone] * Streptococcus A Rapid Screen w/Reflex to PCR - Clinic Collect (10/05/2023 11:41 AM CDT) Pathologist [facility] A Strep antigen Negative Negative 10/05/2023 12:07 PM CDT LABORATORY Swab STRUCTURE OF ANTERIOR PORTION OF NECK / Unknown Non-blood Collection / Unknown 10/05/2023 11:41 AM CDT 10/05/2023 11:59 AM CDT Amalia Zayas MD LAB - MICRO GENERAL ORDERABLES LABORATORY [address] (no room number, 1st floor of clinic) [place] [address], [facility] [phone] * (ABNORMAL) Wet prep - lab collect (10/05/2023 11:41 AM CDT) Trichomonas Absent Absent REINA 10/05/2023 11:53 AM [...] MD LAB - MICRO GENERAL ORDERABLES LABORATORY [facility] [address] [facility] (no room number, 1st floor of clinic) [place] [address] [phone] * (ABNORMAL) UA Macroscopic with reflex to [...] 10/05/2023 11:52 AM CDT LV [facility] Specific [place] Urine 1.010 1.003 - 1.035 10/05/2023 11:52 [...] LAB - URINE ORDERABL ES LV LABORATORY [facility] [address] [facility] Lab (no room number, 1st floor of clinic) [place] [address], [facility] [phone] documented in this encounter Visit Diagnoses Diagnosis Vulvovaginal candidiasis- Primary Candidiasis of vulva and vagina Dysuria Itching Unspecified pruritic disorder Throat pain Eosinophilic esophagitis Esophageal dysphagia Dysphagia, pharyngoesophageal phase documented in this encounter Additional Health Concerns Assessment Noted Time PHQ-9 Depression Total Score: 4 06/20/20 23 8:40 AM V BELT INSPECTOR documented as of this encounter Care Teams President & Ceo [employer] Relationship Specialty Start Date End Date Esha Grimm PA-C [address] [place] [phone] PCP - General Family Medicine 05/04/23 Diana Desir, [facility] 3033 [place] [address] Pharmacist Pharmacist 04/17/21 Rain Galaviz PA-C [address] [place] [address] [address] [place] [address] Physician Drier And Grinder Tender Dermatology 04/28/21 Tavia Wyatt MD [address] [place] [address] [place] [address] Dermatology 07/14/21 Erica Farrell APRN SUBWAREHOUSE SUPERVISOR [address] [place], [place] 215355 Nurse Practitioner Cardiovascular Disease 09/09/21 Rich Barrett MD [address] [facility] [address]A [place], [place] 9937[address] Physician Ophthalmology 01/21/22 Neil Kent MD 500 [place], [place] 543325 Dermatology 02/24/22 Diana Desir, [facility] [address] [place], [place] 463296 Assigned [facility] Pharmacist 04/07/22 Livan Shairf MD [address], [facility]00 [place] [address] Cardiovascular Disease 05/14/22 Catherine Cm MD 6[address] [facility] [address] 822985 Cardiovascular Disease 07/21/22 Valery Veronica, PA-C [address] [place] [address] Physician Drier And Grinder Tender Dermatology 07/21/22 Brea Quinn APRN SUBWAREHOUSE SUPERVISOR 500 [place], [place] 268945 Nurse Practitioner Dermatology 09/21/22 Brea Quinn APRN SUBWAREHOUSE SUPERVISOR 6401 [facility] [place] 7[address]252 Assigned Surgical Provider 10/09/22 [place] [address] [facility] 300 [place] [address] Assigned Musculoskeletal Provider 10/09/22 Alfonso Renteria MD [address] [facility] 200 [place] [address] Assigned Neuroscience Provider 04/02/23 Radha Lomeli APRN SUBWAREHOUSE SUPERVISOR [address] [facility] [address] [place] [address] Assigned Heart and Vascular Provider 05/28/23 Jelena David OD [address] [facility] [place] [address] Ophthalmology 06/15/23 Pao Joseph, RN Personal Advocate & Liaison (PAL) Nurse 08/01/23 Esha Grimm PA-C [address] [place] [phone] Assigned PCP 07/16/23 Valery Veronica PA-C [address] [place] [address] 112525 Physician Drier And Grinder Tender Dermatology 09/19/23 Rey Tay MD [address] [place] [address] 642325 Gastroenterology 09/20/23 Rocky Zepeda DO [address] [place] [address] Physician Gastroenterology 09/20/23 Philip Dumont MD [address] [place] [address] Physician Ophthalmology 09/22/23 documented as of this encounter
--- OUTSIDE RECORDS SUMMARY | 2023-10-28 16:35 | XMS_ITS | Encounter Summary ---
Author Name Unknown Organization [place] Address [address] [place] [address] Care Team Providers Care Seafood Manager Name Role Phone ThangKendrickDiana T [facility] Unavailable Rain Galaviz-C Unavailable Tavia Wyatt MD Unavailable Unavailable Erica Farrell APRN DOG BOARDER Unavailable Rich Barrett MD Unavailable Neil Kent MD Unavailable Diana Desir [facility] Unavailable [phone] Livan Sharif MD Unavailable Catherine Cm MD Unavailable + Valery Veronica-C Unavailable [phone] Brea Quinn LOOM WINDER TENDER DOG BOARDER Unavailable Brea Quinn LOOM WINDER TENDER DOG BOARDER Unavailable Jose Francisco Johnson MD Unavailable Alfonso Renteria MD Unavailable + [phone] Esha Grimm PA-C Primary Care Provider Radha Lomeli LOOM WINDER TENDER DOG BOARDER Unavailable FrankieJelena OD Unavailable [phone] Pao Joseph RN Unavailable Unavailable Esha Grimm PA-C Unavailable Valery Veronica PA-C Unavailable Rey Tay MD Unavailable Rocky Zepeda DO Unavailable Philip Dumont MD Unavailable [phone] Reason for Visit * Reason Onset Date Comments Appointment 10/03/2023 New Esophageal P t Encounter Details Date Type Department Care Team ([facility] st Contact Info) Description 10/03/[address] [facility] [place] 338489 [facility] 4th [place] [address] Rocky Zepeda DO 500 [place] [address] Appointment (New Esophageal Pt) Social [...] often do you attend chur ch or quaker services? 1 to 4 times per year [...] Answer Date Recorded PHQ-2 Score 0 06/20/2023 [facility] - Occupational Stress Questionnaire [...] exercise at this level? 30 min 03/10/2023 [place] Depression Scale Answer Date Recorded [place] Depression Score 5 01/14/2021 Last EPDS Self [...] Richar Schafer - 10/04/2023 9:19 AM CDT Sales Team Recruiter called to offer Pt a sooner appointment with Meredith Carrera, in-person. Pt accepted an appointment with Meredith Carrera on 10/06/2023 at 7:30 Am. * Telephone Encounter - Richar Schafer - 10/03/2023 1:44 PM CDT Sales Team Recruiter received a message from VJ Yun to help get Pt scheduled for a sooner appointment with or Meredith Carrera. This is a new Pt. Sales Team Recruiter called and talked with Pt. Sales Team Recruiter tried to offer sooner appointments with Meredith Carrera virtually but Pt declined. Pt told Sales Team Recruiter that per Pt's conversation with the nurse (Jessa Yun), Pt needed to be seen in person. Sales Team Recruiter informed Pt that Sales Team Recruiter will connect back with the clinic and reach back out to the Pt some time this week. Pt expressed understanding of the plan. documented in this encounter Plan of Treatment Upcoming Encounters Date Type Department Care Team (Late st Contact Info) Description 11/01/2023 8:00 AM CDT Appointment [facility] Imaging [address] [place] [address] Lauren Claudio PA-C [address] [place] [address] 11/03/2023 8:00 AM CDT Office Visit [facility] 830 [place] [phone] Valery Veronica PA-C 909 [place] [address] 11/29/2023 8:00 AM CDT Office Visit [address] [phone] Esha Grimm PA-C [address] [place] [phone] 12/19/2023 11:30 AM CDT Hospital Encounter [address] [phone] Rocky Zepeda DO 500 [place] [address] 12/19/2023 11:30 AM CDT - 12/19/2023 12:00 PM CDT Surgery [address] [phone] Rocky Zepeda DO 500 [place], [place] [address]505 Esophagoscopy, gastroscopy, duodenoscopy (EGD), combined 01/02/2024 8:00 AM CDT Office Visit [facility] [address] [phone] Lauren Claudio PA-C [address] [place] [address] Kelli Perez MD [address] [facility] 106 [place] [address] Scheduled Procedures Name Priority Associated Diagnoses Date/Ti ca ESOPHAGOGASTRODUODENOSCOPY Eosinophilic esophagitis Esophageal dysphagia 12/19/2023 11:30 AM CDT documented as of this encounter Visit Diagnoses Not on filedocumented in this encounter Additional Health Concerns Assessment Noted Time PHQ-9 Depression Total Score: 4 06/20/20 23 8:40 AM SHALLOT CLEANER documented as of this encounter Care Teams Seafood Manager Relationship Specialty Start Date End Date Esha Grimm PA-C [address] [place] [address] PCP - General Family Medicine 05/04/23 Diana Desir, [facility] [address] [place] [address] Pharmacist Pharmacist 04/17/21 Rain Galaviz PA-C [address] [place] [address] [address] [place] [address] Physician Elementary Tutor Dermatology 04/28/21 Tavia Wyatt MD [address] [place] [address] [address] [facility] [place] [address] Dermatology 07/14/21 Erica Farrell APRN DOG BOARDER 6405 [facility] [address] [place] [address] Nurse Practitioner Cardiovascular Disease 09/09/21 Rich Barrett MD 6 [facility] 9A [place], [place] 24[address]85 Physician Ophthalmology 01/21/22 Neil Kent MD 500 [place], [place] 078265 Dermatology 02/24/22 Diana Desri, [facility] 3033 [place] [address] Assigned MTM Pharmacist 04/07/22 Livan Sharif MD [address] 236175 Cardiovascular Disease 05/14/22 Catherine Cm MD [address] [address] Cardiovascular Disease 07/21/22 Valery Veronica, PA-C 909 [place], [place] 354285 Physician Elementary Tutor Dermatology 07/21/22 Brea Quinn APRN DOG BOARDER 500 [place] [address] Nurse Practitioner Dermatology 09/21/22 Brea Quinn APRN DOG BOARDER [address] [place] [address] [place] 412572 Assigned Surgical Provider 10/09/22 [place] [address] [place] [address]77 Assigned Musculoskeletal Provider 10/09/22 Alfonso Renteria MD [address] [facility] [address] 200 [place], [place] 898126 Assigned Neuroscience Provider 04/02/23 Radha Lomeli APRN DOG BOARDER 6405 [facility] [address] [place] [address] Assigned Heart and Vascular Provider 05/28/23 Jelena David OD [address] [facility] [place] [address] Ophthalmology 06/15/23 Pao Joseph, VJ Personal Advocate & Liaison (PAL) Nurse 08/01/23 Esha Grimm PA-C [address] [place] [address] Assigned PCP 07/16/23 Valery Veronica PA-C [address] [place] [address] 278115 Physician Elementary Tutor Dermatology 09/19/23 Rey Tay MD [address] [place] [address] Gastroenterology 09/20/23 Rocky Zepeda DO [address] [place] [address] 118755 Physician Gastroenterology 09/20/23 Philip Dumont MD [address] [place] [address] 912445 Physician Ophthalmology 09/22/23 documented as of this encounter
--- OUTSIDE RECORDS SUMMARY | 2023-10-28 16:35 | XMS_ITS | Encounter Summary ---
Author Name Unknown Organization [place] Address [address] [place] [address] Care Team Providers Care Coffee Plantation Worker Name Role Phone ThangKendrickDiana T [facility] Unavailable Rain Galaviz-C Unavailable Tavia Wyatt MD Unavailable Unavailable Erica Farrell APRN ALLIGATOR TRAPPER Unavailable Rich Barrett MD Unavailable Neil Kent MD Unavailable Diana Desir [facility] Unavailable [phone] Livan Sharif MD Unavailable Catherine Cm MD Unavailable + Valery Veronica-C Unavailable [phone] Brea Quinn DRILL PRESS HAND ALLIGATOR TRAPPER Unavailable [phone] Brea Quinn DRILL PRESS HAND ALLIGATOR TRAPPER Unavailable Jose Francisco Johnson MD Unavailable Alfonso Renteria MD Unavailable + [phone] Esha Grimm PA-C Primary Care Provider [phone] Radha Lomeli DRILL PRESS HAND ALLIGATOR TRAPPER Unavailable FrankieJelena OD Unavailable Pao Joseph RN Unavailable Unavailable Esha Grimm PA-C Unavailable [phone] Valery Veronica PA-C Unavailable [phone] Rey Tay MD Unavailable ZepedaRocky Unavailable Philip Dumont MD Unavailable [phone] Encounter Details Date Type Department Care [...] week 03/10/2023 How often do you attend [facility] or protestant services? 1 to 4 times per year 03/10/2023 Do you belong to any clubs o r organizations such as jain groups, unions, fraternal or athletic groups, [...] Date Recorded PHQ-2 Score 0 06/20/2023 [facility] [place] of Occupat ional Health - Occupational Stress [...] exercise at this level? 30 min 03/10/2023 [place] Depression Scale Answer Date Recorded [place] Depression Score 5 01/14/2021 Last EPDS Self [...] Info) Description 11/01/2023 8:00 AM CDT Appointment [facility] [address] [place] [address] Lauren Claudio PA-C [address] [place] [address] 11/03/2023 8:00 AM CDT Office Visit [address] [phone] Valery Veronica PA-C [address] [place] [address] 11/29/2023 8:00 AM CDT Office Visit [facility] [address] [place] [phone] Esha Grimm PA-C [address] [place] [address] 12/19/2023 11:30 AM CDT Hospital Encounter [address] [phone] Rocky Zepeda DO 500 [place] [address] 12/19/2023 11:30 AM CDT - 12/19/2023 12:00 PM CDT Surgery [address] [phone] Rocky Zepeda DO 500 [place] [address] Esophagoscopy, gastroscopy, duodenoscopy (EGD), combined 01/02/2024 8:00 AM CDT Office Visit [facility] [address] [place] [address] Lauren Claudio PA-C [address] [place], [place] [phone] Kelli Perez MD [address] [facility] 106 [place], [place] 367984 Scheduled Procedures Name Priority Associated Diagnoses Date/Ti va ESOPHAGOGASTRODUODENOSCOPY Eosinophilic esophagitis Esophageal dysphagia 12/19/2023 11:30 AM CDT documented as of this encounter Visit Diagnoses Not on filedocumented in this encounter Additional Health Concerns Assessment Noted Time PHQ-9 Depression Total Score: 4 06/20/20 23 8:40 AM NEMATOLOGIST documented as of this encounter Care Teams Coffee Plantation Worker Relationship Specialty Start Date End Date Esha Grimm PA-C [address] [place] [phone] PCP - General Family Medicine 05/04/23 Diana Desir, [facility] [address] [place] [address] Pharmacist Pharmacist 04/17/21 Rain Galaviz PA-C [address] [place] [address] [address] [place] [address] Physician Pump Assembler Dermatology 04/28/21 Tavia Wyatt MD [address] [place] [address] [address] [place] [address] Dermatology 07/14/21 Erica Farrell APRN ALLIGATOR TRAPPER [address] [place] [address] Nurse Practitioner Cardiovascular Disease 09/09/21 Rich Barrett MD 516 [facility] 9A [place] [address] Physician Ophthalmology 01/21/22 Neil Kent MD 500 [place] [address] Dermatology 02/24/22 Diana Desir, [facility] 3033 [place], [place] 495916 Assigned [place] Pharmacist 04/07/22 Livan Sharif MD [address] [facility] [address] [place] [address] Cardiovascular Disease 05/14/22 Catherine Cm MD [address] [facility]00 [place] [address] Cardiovascular Disease 07/21/22 Valery Veronica, PAUcheC 909 [place], [place] 330265 Physician Pump Assembler Dermatology 07/21/22 Brea Quinn APRN ALLIGATOR TRAPPER 500 [place], [place] [address] Nurse Practitioner Dermatology 09/21/22 Brea Quinn APRN ALLIGATOR TRAPPER 6401 [facility] [place] [place] [address] Assigned Surgical Provider 10/09/22 [place] [address] [address] [facility] 300 [place] [address] Assigned Musculoskeletal Provider 10/09/22 Alfonso Renteria MD [address] [facility] 200 [place], [place] [address] Assigned Neuroscience Provider 04/02/23 Radha Lomeli APRN ALLIGATOR TRAPPER 6405 [facility] [address] [place] [address] Assigned Heart and Vascular Provider 05/28/23 Jelena David OD [address] [facility] [place] [address] Ophthalmology 06/15/23 Pao Joseph, VJ Personal Advocate & Liaison (PAL) Nurse 08/01/23 Esha Grimm PA-C [address] [place] [phone] Assigned PCP 07/16/23 Valery Veronica PA-C [address] [place] [address] 055535 Physician Pump Assembler Dermatology 09/19/23 Rey Tay MD 9 [place], [place] 563515 Gastroenterology 09/20/23 Rocky Zepeda DO [address] [place] [address] [phone] Physician Gastroenterology 09/20/23 Philip Dumont MD [address] [place] [address] 967715 Physician Ophthalmology 09/22/23 documented as of this encounter
--- OUTSIDE RECORDS SUMMARY | 2023-10-28 16:35 | XMS_ITS | Encounter Summary ---
Author Name Unknown Organization [facility] Address [address] [place] [address] Care Team Providers Care Mechatronics Engineer Name Role Phone ThangKendrickDiana T [facility] Unavailable Rain Galaviz-C Unavailable Tavia Wyatt MD Unavailable Unavailable Erica Farrell APRN THERAPY TEACHER Unavailable Rich Barrett MD Unavailable Neil Kent MD Unavailable Diana Desir [facility] Unavailable [phone] Livan Sharif MD Unavailable Catherine Cm MD Unavailable + Valery Veronica-C Unavailable [phone] Brea Quinn PELLET PRESS OPERATOR THERAPY TEACHER Unavailable [phone] Brea Quinn PELLET PRESS OPERATOR THERAPY TEACHER Unavailable Jose Francisco Johnson MD Unavailable Alfonso Renteria MD Unavailable + [phone] Esha Grimm PA-C Primary Care Provider Radha Lomeli PELLET PRESS OPERATOR THERAPY TEACHER Unavailable FrankieJelena OD Unavailable Pao Joseph RN Unavailable Unavailable Esha Grimm PA-C Unavailable Valery Veronica PA-C Unavailable Rey Tay MD Unavailable DuaneRocky Unavailable Philip Dumont MD Unavailable [phone] Reason for Visit * Reason Onset Date Comments Appointment 10/06/2023 Reschedule of appt Encounter Details Date Type Department Care Team (Late st Contact Info) Description 10/06/2023 Telephone [facility] [address] [place] [address] Meredith Carrera PA-C [address] [place] [address] Appointment (Reschedule of 10/06/23 appt) Social [...] often do you attend chur ch or scientologist services? 1 to 4 times per year 03/10/2023 Do you belong to any clubs o r organizations such as baptism groups, unions, fraternal or athletic groups, [...] Answer Date Recorded PHQ-2 Score 0 06/20/2023 [facility] - Occupational Stress Questionnaire Answer [...] exercise at this level? 30 min 03/10/2023 [place]orph[place] Depression Scale Answer Date Recorded [place]orph[place] Depression Score 5 01/14/2021 Last EPDS Self [...] Richar Schafer - 10/07/2023 1:16 PM CDT Hydrate Control Tender call to offer Pt an appointment with Meredith Carrera on 10/13/2023 at 10:45 AM. Pt accepted the appointment. * Telephone Encounter - Yara oLtt - 10/06/2023 7:06 AM CDT [facility] Call Center Phone Message May a detailed message be left on voicemail: yes Reason for Call: Other: Patient had an appt with Meredith Carrera today, 10/06/23, at 7:30am; however, patient called at 7:05am stating she had overselpt and would not make it in. She stated she was squeezed in for this appt and felt really bad but she lives in [place] and would not make it in time.Therefore, she would like to be squeezed in at another time with Dr. Zepeda or Meredith Carrera - that is who she was told she has to schedule with. Please follow up with patient. Action Taken: Message routed to: [facility] [place] Screening: Not Applicable documented in this encounter Plan of Treatment Upcoming Encounters Date Type Department Care Team (Late st Contact Info) Description 11/01/2023 8:00 AM CDT Appointment [facility] Imaging [address] [place] [address] Lauren Claudio PA-C [address] [place], [place] [phone] 11/03/2023 8:00 AM CDT Office Visit [address] [phone] Valery Veronica PA-C 909 [place] [address] 11/29/2023 8:00 AM CDT Office Visit [facility] [address] [place] [phone] Esha Grimm PA-C [address] [place] [phone] 12/19/2023 11:30 AM CDT Hospital Encounter [address] [phone] Rocky Zepeda DO 500 [place], [place] [address]395 12/19/2023 11:30 AM CDT - 12/19/2023 12:00 PM CDT Surgery [address] [phone] Rocky Zepeda DO 500 [place] [address] Esophagoscopy, gastroscopy, duodenoscopy (EGD), combined 01/02/2024 8:00 AM CDT Office Visit [facility] [address] [place] [phone] Lauren Claudio PA-C [address] [place], [place] [phone] Kelli Perez MD 606 [facility] 106 [place], [place] [address]314 Scheduled Procedures Name Priority Associated Diagnoses Date/Ti az ESOPHAGOGASTRODUODENOSCOPY Eosinophilic esophagitis Esophageal dysphagia 12/19/2023 11:30 AM CDT documented as of this encounter Visit Diagnoses Not on filedocumented in this encounter Additional Health Concerns Assessment Noted Time PHQ-9 Depression Total Score: 4 06/20/20 23 8:40 AM CONSTRUCTION CONTRACTOR documented as of this encounter Care Teams Mechatronics Engineer Relationship Specialty Start Date End Date Esha Grimm PA-C [address] [place] [address] PCP - General Family Medicine 05/04/23 Diana Desir, [facility] [place], [place] [phone] Pharmacist Pharmacist 04/17/21 Rain Galaviz PA-C [address] [place] [address] [address] [place] [address] Physician Yardage Caller Dermatology 04/28/21 Tavia Wyatt MD [address] [place] [address] [address] [place] [address] Dermatology 07/14/21 Erica Farrell APRN THERAPY TEACHER 6405 [facility] [address] [place] 868955 Nurse Practitioner Cardiovascular Disease 09/09/21 Rich Barrett MD 516 [facility] 9A [place], [place] 146785 Physician Ophthalmology 01/21/22 Neil Kent MD 500 [place], [place] 334415 Dermatology 02/24/22 Diana Desir, [facility] 3033 [place], [place] 519696 Assigned [place] Pharmacist 04/07/22 Livan Sharif MD [address] [facility]00 [place], [place] 208[address] Cardiovascular Disease 05/14/22 Catherine Cm MD [address] [id number] Cardiovascular Disease 07/21/22 Valery Veronica, PA-C 909 [place], [place] [address] Physician Yardage Caller Dermatology 07/21/22 Brea Quinn APRN THERAPY TEACHER 500 [place], [place] 881205 Nurse Practitioner Dermatology 09/21/22 Brea Quinn APRN THERAPY TEACHER 6401 [facility] [place] 114032 Assigned Surgical Provider 10/09/22 [place] [address] [facility] 300 [place] [address] Assigned Musculoskeletal Provider 10/09/22 Alfonso Renteria MD [address] [facility] 200 [place], [place] 858946 Assigned Neuroscience Provider 04/02/23 Radha Lomeli APRN THERAPY TEACHER 6405 [facility] [place], [place] 143455 Assigned Heart and Vascular Provider 05/28/23 Jelena David OD 3305 [facility] [address] [place] [id number] Ophthalmology 06/15/23 Pao Joseph, RN Personal Advocate & Liaison (PAL) Nurse 08/01/23 Esha Grimm PA-C [address] [place] [phone] Assigned PCP 07/16/23 Valery Veronica PA-C [address] [place] [address] 092175 Physician Yardage Caller Dermatology 09/19/23 Rey Tay MD [address] [place] [address] [phone] Gastroenterology 09/20/23 Rocky Zepeda DO [address] [place] [address] 647785 Physician Gastroenterology 09/20/23 Philip Dumont MD [address] [place] [address] Physician Ophthalmology 09/22/23 documented as of this encounter
--- OUTSIDE RECORDS SUMMARY | 2023-10-28 16:35 | XMS_ITS | Encounter Summary ---
Author Name Unknown Organization [facility] Address [address] [place] [address] Care Team Providers Care Ethylbenzene Oxidizer Name Role Phone ThangKendrickDiana T [facility] Unavailable Rain Galaviz-C Unavailable Tavia Wyatt MD Unavailable Unavailable Erica Farrell APRN SLEEVE SETTER SAFETY STITCH Unavailable Rich Barrett MD Unavailable Neil Kent MD Unavailable Diana Desir [facility] Unavailable [phone] Livan Sharif MD Unavailable Catherine Cm MD Unavailable + Valery Veronica-C Unavailable [phone] Brea Quinn COVER MAKING MACHINE OPERATOR SLEEVE SETTER SAFETY STITCH Unavailable Brea Quinn COVER MAKING MACHINE OPERATOR SLEEVE SETTER SAFETY STITCH Unavailable Jose Francisco Johnson MD Unavailable Alfonso Renteria MD Unavailable + [phone] Esha Grimm PA-C Primary Care Provider [phone] Radha Lomeli COVER MAKING MACHINE OPERATOR SLEEVE SETTER SAFETY STITCH Unavailable FrankieJelena OD Unavailable Pao Joseph RN Unavailable Unavailable Esha Grimm PA-C Unavailable [phone] Valery Veronica PA-C Unavailable [phone] Rey Tay MD Unavailable DuaneRocky Unavailable Philip Dumont MD Unavailable [phone] Reason for Visit * Reason Comments Pharyngitis Encounter Details Date Type Department Care Team (Late st Contact Info) Description 09/29/2023 12:13 AM CDT - 09/29/2023 12:14 AM CDT Emergency [facility] Emergency Dept [address] [place] [address] Discharge Disposition: Left Without Being Seen Social [...] often do you attend chur ch or tenriism services? 1 to 4 times per year [...] Answer Date Recorded PHQ-2 Score 0 06/20/2023 [facility] - Occupational Stress Questionnaire [...] exercise at this level? 30 min 03/10/2023 [place] Depression Scale Answer Date Recorded [place] Depression Score 5 01/14/2021 Last EPDS [...] Intrauterine route once Lidocaine (LIDOCARE) 4 % PatchIndications:Acut e left-sided low back pain with left-sided sciatica,Sacroiliac joint pain,Neck pain Place 1 patch onto the skin every 24 hours To prevent lidocaine toxicity, patient should be patch free for 12 hrs daily. 30 patch 1 10/11/2022 metoprolol succinate ER (TOPROL XL) 25 MG 24 hr tabletIndications:Pal pitations Take 0.5 tablets (12.5 mg) by mouth daily 45 tablet 1 05/25/2023 omeprazole (PRILOSEC) [address] capsuleIndications:Ep igastric pain TAKE 1 CAPSULE BY MOUTH DAILY. 90 capsule 3 09/16/2023 PARoxetine (PAXIL) 40 MG tabletIndications:Anx iety Take 1 tablet (40 mg) by mouth every morning 90 tablet 1 09/21/2023 tacrolimus (PROTOPIC) 0.1 % external ointmentIndications:P soriasis Apply thin layer to psoriasis on thinner skin of face/genitals up to twice daily as needed. 60 g 11 10/01/2022 tretinoin (RETIN-A) 0.05 % external creamIndications:Acne , unspecified acne type Apply topically at bedtime 45 g 09/01/2023 triamcinolone (KENALOG) 0.1 % external ointmentIndications:P soriasis Apply topically 2 times daily To psoriasis on body or arms/legs until healed then stop 80 g 2 10/01/2022 LORazepam (ATIVAN) 0.5 MG tabletIndications:Anx iety Take 1 tablet (0.5 mg) by mouth daily as needed for anxiety 30 tablet 07/28/2023 10/27/2023 documented as of this encounter ED Notes [...] breathing. Triage Assessment (Adult) Row Name 09/28/23 8859 Triage Assessment Airway WDL WDL Respiratory WDL Respiratory WDL WDL Skin Circulation/Temperature WDL Skin Circulation/Temperature WDL WDL Cardiac WDL Cardiac WDL WDL documented in this encounter Plan of Treatment Upcoming Encounters Date Type Department Care Team (Late st Contact Info) Description 11/01/2023 8:00 AM CDT Appointment [facility] Imaging [address] [place] [phone] Lauren Claudio, PAUcheC [address] [place] [address] 11/03/2023 8:00 AM CDT Office Visit [facility] [address] [place] [phone] Valery Veronica PA-C [address] [place] [address] 11/29/2023 8:00 AM CDT Office Visit [facility] [address] [place] [phone] Esha Grimm PA-C [address] [place] [phone] 12/19/2023 11:30 AM CDT Hospital Encounter [address] [phone] Rocky Zepeda DO 500 [place] [address] 12/19/2023 11:30 AM CDT - 12/19/2023 12:00 PM CDT Surgery [address] [phone] Rocky Zepeda DO 500 [place] [address] Esophagoscopy, gastroscopy, duodenoscopy (EGD), combined 01/02/2024 8:00 AM CDT Office Visit [facility] [address] [phone] Lauren Claudio PA-C [address] [place] [address] Kelli Perez MD 606 [address] [facility] 106 [place] [address] Scheduled Procedures Name Priority Associated Diagnoses Date/Ti hi ESOPHAGOGASTRODUODENOSCOPY Eosinophilic esophagitis Esophageal dysphagia 12/19/2023 11:30 AM CDT documented as of this encounter Visit Diagnoses Not on filedocumented in this encounter Additional Health Concerns Assessment Noted Time PHQ-9 Depression Total Score: 4 06/20/20 23 8:40 AM ADDICTION PSYCHIATRIST documented as of this encounter Care Teams Ethylbenzene Oxidizer Relationship Specialty Start Date End Date Esha Grimm PA-C [address] [place] [address] PCP - General Family Medicine 05/04/23 [facility] 3033 [facility] [place] [address] Pharmacist Pharmacist 04/17/21 Rain Galaviz PA-C [address] [place] [address] [address] [place] [address] Physician Administrative Assistant Front Desk Dermatology 04/28/21 Tavia Wyatt MD [address] [place] [address] [address] [place] [address] Dermatology 07/14/21 Erica Farrell APRN SLEEVE SETTER SAFETY STITCH 6405 [facility] [address] [place], [place] [address] Nurse Practitioner Cardiovascular Disease 09/09/21 Rich Barrett MD 516 [facility] 9A [place], [place] 596625 Physician Ophthalmology 01/21/22 Neil Kent MD 500 [place], [place] 491065 Dermatology 02/24/22 Diana Desir, [facility] 3033 [place], [place] 840366 Assigned MTM Pharmacist 04/07/22 Livan Sharif MD [address] [facility] [address] [place] [address] Cardiovascular Disease 05/14/22 Catherine Cm MD [address] [facility] [place] [address] Cardiovascular Disease 07/21/22 Valery Veronica, PA-C 909 [place], [place] 018665 Physician Administrative Assistant Front Desk Dermatology 07/21/22 Brea Quinn APRN SLEEVE SETTER SAFETY STITCH 500 [place] [address] Nurse Practitioner Dermatology 09/21/22 Brea Quinn APRN SLEEVE SETTER SAFETY STITCH 6401 [facility] [place] [address] Assigned Surgical Provider 10/09/22 [place] [address] [place] [address] Assigned Musculoskeletal Provider 10/09/22 Alfonso Renteria MD [address] [place] [address] Assigned Neuroscience Provider 04/02/23 Armani Radha ARLENE Stovall SLEEVE SETTER SAFETY STITCH 6405 [facility] [address] [place] [address] Assigned Heart and Vascular Provider 05/28/23 Jelena David OD 3305 [facility] [place] [address] Ophthalmology 06/15/23 Pao Joseph, VJ Personal Advocate & Liaison (PAL) Nurse 08/01/23 Esha Grimm PA-C [address] [place] [phone] Assigned PCP 07/16/23 Valery Veronica PA-C 9 [place], [place] 175225 Physician Administrative Assistant Front Desk Dermatology 09/19/23 Rey Tay MD [address] [place] [address] 757635 Gastroenterology 09/20/23 Rocky Zepeda DO [address] [place] [address] 334555 Physician Gastroenterology 09/20/23 Philip Dumont MD [address] [place] [address] Physician Ophthalmology 09/22/23 documented as of this encounter
--- OUTSIDE RECORDS SUMMARY | 2023-10-28 16:35 | XMS_ITS | Encounter Summary ---
Author Name Unknown Organization [facility] Address [address] [place] [address] Care Team Providers Care Tumbler Plater Name Role Phone ThangKendrickDiana T [facility] Unavailable [phone] Rain Galaviz-C Unavailable Tavia Wyatt MD Unavailable Unavailable Erica Farrell APRN PLATER APPRENTICE Unavailable Rich Barrett MD Unavailable Neil Kent MD Unavailable Diana Desir [facility] Unavailable [phone] Livan Sharif MD Unavailable Catherine Cm MD Unavailable + Valery Veronica-C Unavailable [phone] Brea Quinn OVEN TECHNICIAN PLATER APPRENTICE Unavailable Brea Quinn OVEN TECHNICIAN PLATER APPRENTICE Unavailable Jose Francisco Johnson MD Unavailable Alfonso Renteria MD Unavailable + [phone] Esha Grimm PA-C Primary Care Provider Radha Lomeli OVEN TECHNICIAN PLATER APPRENTICE Unavailable FrankieJelena OD Unavailable [phone] Pao Joseph RN Unavailable Unavailable Esha Grimm PA-C Unavailable [phone] Valery Veronica PA-C Unavailable [phone] Rey Tay MD Unavailable ZepedaRocky Unavailable Philip Dumont MD Unavailable [phone] Encounter Details Date Type Department Care [...] week 03/10/2023 How often do you attend [facility] or caodaism services? 1 to 4 times [...] Date Recorded PHQ-2 Score 0 06/20/2023 [facility] ional Health - Occupational Stress [...] exercise at this level? 30 min 03/10/2023 [place] Depression Scale Answer Date Recorded [place] Depression Score 5 01/14/2021 Last EPDS Self [...] Info) Description 11/01/2023 8:00 AM CDT Appointment [facility] Imaging [address] [place] [address] Lauren Claudio PA-C [address] [place] [address] 11/03/2023 8:00 AM CDT Office Visit [address] [phone] Valery Veronica PA-C [address] [place] [address] 11/29/2023 8:00 AM CDT Office Visit [facility] [address] [place] [phone] Esha Grimm PA-C [address] [place] [phone] 12/19/2023 11:30 AM CDT Hospital Encounter [address] [phone] Rocky Zepeda DO 500 [place] [address] 12/19/2023 11:30 AM CDT - 12/19/2023 12:00 PM CDT Surgery [address] [phone] Rocky Zepeda DO 500 [place] [address] Esophagoscopy, gastroscopy, duodenoscopy (EGD), combined 01/02/2024 8:00 AM CDT Office Visit [facility] [address] [place] [address] Lauren Claudio PA-C [address] [place], [place] [phone] Kelli Perez MD [address] [facility] 106 [place], [place] [address]654 Scheduled Procedures Name Priority Associated Diagnoses Date/Ti id ESOPHAGOGASTRODUODENOSCOPY Eosinophilic esophagitis Esophageal dysphagia 12/19/2023 11:30 AM CDT documented as of this encounter Visit Diagnoses Not on filedocumented in this encounter Additional Health Concerns Assessment Noted Time PHQ-9 Depression Total Score: 4 06/20/20 23 8:40 AM EARTH BURNER documented as of this encounter Care Teams Tumbler Plater Relationship Specialty Start Date End Date Esha Grimm PA-C [address] [place] [phone] PCP - General Family Medicine 05/04/23 Diana Desir, [facility] [address] [place] [address] Pharmacist Pharmacist 04/17/21 Rain Galaviz PA-C [address] [place] [address] [address] [place] [address] Physician Sumo Wrestler Dermatology 04/28/21 Tavia Wyatt MD [address] [place] [address] [address] [place] [address] Dermatology 07/14/21 Erica Farrell APRN PLATER APPRENTICE [address] [place] [address] Nurse Practitioner Cardiovascular Disease 09/09/21 Rich Barrett MD 516 [facility] 9A [place] [address] Physician Ophthalmology 01/21/22 Neil Kent MD 500 [place] [address] Dermatology 02/24/22 Diana Desir, [facility] 3033 [place], [place] 166246 Assigned [place] Pharmacist 04/07/22 Livan Sharif MD [address] [facility] [address] [place] [address] Cardiovascular Disease 05/14/22 Catherine Cm MD [address] [facility]00 [place] [address] Cardiovascular Disease 07/21/22 Valery Veronica, PAUcheC 909 [place], [place] 6[address] Physician Sumo Wrestler Dermatology 07/21/22 Brea Quinn APRN PLATER APPRENTICE 500 [place], [place] [phone] Nurse Practitioner Dermatology 09/21/22 Brea Quinn APRN PLATER APPRENTICE 6401 [place] [address] Assigned Surgical Provider 10/09/22 [place] [address] [place] [facility] 300 [place] [address] Assigned Musculoskeletal Provider 10/09/22 Alfonso Renteria MD [address] [facility] 200 [place], [place] [phone] Assigned Neuroscience Provider 04/02/23 Radha Lomeli APRN PLATER APPRENTICE 6405 [facility] [address] [place] [address] Assigned Heart and Vascular Provider 05/28/23 Jelena David OD [address] [facility] [place] [address] Ophthalmology 06/15/23 Pao Joseph, VJ Personal Advocate & Liaison (PAL) Nurse 08/01/23 Esha Grimm PA-C [address] [place] [phone] Assigned PCP 07/16/23 Valery Veronica PA-C [address] [place] [address] 399[address] Physician Sumo Wrestler Dermatology 09/19/23 Rey Tay MD 9 [place], [place] 7[address]65 Gastroenterology 09/20/23 Rocky Zepeda DO [address] [place] [address] [phone] Physician Gastroenterology 09/20/23 Philip Dumont MD [address] [place] [address] 846775 Physician Ophthalmology 09/22/23 documented as of this encounter
--- OUTSIDE RECORDS SUMMARY | 2023-10-28 16:36 | XMS_ITS | Encounter Summary ---
Author Name Unknown Organization [place] Address [address] [place] [address] Care Team Providers Care Automobile Seat Cover Installer Name Role Phone ThangKendrickDiana T [facility] Unavailable [phone] Rain Galaviz-C Unavailable [phone] Tavia Wyatt MD Unavailable Unavailable Erica Farrell APRN FORM BUILDER HELPER Unavailable Rich Barrett MD Unavailable Neil Kent MD Unavailable Diana Desir [facility] Unavailable [phone] Livan Sharif MD Unavailable Catherine Cm MD Unavailable + Valery Veronica-C Unavailable [phone] Brea Quinn X RAY SERVICE TECHNICIAN FORM BUILDER HELPER Unavailable Brea Quinn X RAY SERVICE TECHNICIAN FORM BUILDER HELPER Unavailable Jose Francisco Johnson MD Unavailable Alfonso Renteria MD Unavailable + [phone] Esha Grimm PA-C Primary Care Provider Radha Lomeli X RAY SERVICE TECHNICIAN FORM BUILDER HELPER Unavailable FrankieJelena OD Unavailable [phone] Pao Joseph RN Unavailable Unavailable Alfa Eshalincoln Medina PA-C Unavailable [phone] Valery Veronica PA-C Unavailable [phone] Rey Tay MD Unavailable DuaneRocky Unavailable Philip Dumont MD Unavailable [phone] Encounter Details Date Type Department Care Team (Late st Contact Info) Description 09/08/2023 MyC Medical Advice [facility] [address] [place] [address] Marija Polanco RN Social History [...] Answer Date Recorded PHQ-2 Score 0 06/20/2023 [facility] - [...] exercise at this level? 30 min 03/10/2023 [place] Depression Scale Answer Date Recorded [place] Depression Score 5 01/14/2021 Last EPDS Self [...] Health Clinic Imaging [address] [place] [place] [address] Lauren Claudio PA-C [address] [place], [place] [phone] 11/03/2023 8:00 AM CDT Office Visit [address] [phone] Valery Veronica PA-C [address] [place] [address] 11/29/2023 8:00 AM CDT Office Visit [facility] [address] [place] [phone] Esha Grimm PA-C [address] [place] [address] 12/19/2023 11:30 AM CDT Hospital Encounter [facility] 909 [facility] 5th [place] [phone] Rocky Zepeda DO [address] [place] [address] 12/19/2023 11:30 AM CDT - 12/19/2023 12:00 PM CDT Surgery [facility] 909 [facility] [address] 5th [place] [phone] Rocky Zepeda, 500 [place], [place] 15[address]45 Esophagoscopy, gastroscopy, duodenoscopy (EGD), combined 01/02/2024 8:00 AM CDT Office Visit [facility] [address] [place] [phone] Lauren Claudio PA-C [address] [place], [place] [phone] Kelli Perez MD [address] [phone] Scheduled Procedures Name Priority Associated Diagnoses Date/Ti ut ESOPHAGOGASTRODUODENOSCOPY Eosinophilic esophagitis Esophageal dysphagia 12/19/2023 11:30 AM CDT documented as of this encounter Visit Diagnoses Not on filedocumented in this encounter Additional Health Concerns Assessment Noted Time PHQ-9 Depression Total Score: 4 06/20/20 23 8:40 AM AIR LAUNCH WEAPONS TECHNICIAN documented as of this encounter Care Teams Automobile Seat Cover Installer Relationship Specialty Start Date End Date Esha Grimm PA-C [address] [place] [address] PCP - General Family Medicine 05/04/23 Diana Desir, [facility] [address] [place], [place] [address] Pharmacist Pharmacist 04/17/21 Rain Galaviz PA-C [address] [place] [address] [address] [id number] Physician Entry Writer Dermatology 04/28/21 Tavia Wyatt MD [address] [place] [address] [facility] [place] [address] Dermatology 07/14/21 Erica Farrell APRN FORM BUILDER HELPER [address] [place], [place] 6[address] Nurse Practitioner Cardiovascular Disease 09/09/21 Rich Barrett MD 516 [facility] 9A [place] [address] Physician Ophthalmology 01/21/22 Neil [place] MD 500 [place] [address] Dermatology 02/24/22 [facility] 3033 [place], [place] 223556 Assigned MTM Pharmacist 04/07/22 Livan Sharif MD [address] [place] [address] Cardiovascular Disease 05/14/22 Catherine Cm MD [address] [place] 43[address] Cardiovascular Disease 07/21/22 Valery Veronica, PA-C [address] [place] [address]335 Physician Entry Writer Dermatology 07/21/22 Brea Quinn APRN FORM BUILDER HELPER 500 [place] [address] Nurse Practitioner Dermatology 09/21/22 Brea Quinn APRN FORM BUILDER HELPER 6401 [facility] [place] [address] Assigned Surgical Provider 10/09/22 [place] [address] [facility] 300 [place] [address] Assigned Musculoskeletal Provider 10/09/22 Alfonso Renteria MD 5775 [facility] [address] [place], [place] [address] Assigned Neuroscience Provider 04/02/23 Radha Lomeli APRN FORM BUILDER HELPER 6405 [facility] [address] [place] [address] Assigned Heart and Vascular Provider 05/28/23 Jelena David OD 3305 [facility] [place] [address] Ophthalmology 06/15/23 Pao Joseph, VJ Personal Advocate & Liaison (PAL) Nurse 08/01/23 Esha Grimm PA-C [address] [place] [phone] Assigned PCP 07/16/23 Valery Veronica PA-C 909 [place] [address] Physician Entry Writer Dermatology 09/19/23 Rey Tay MD [address] [place] [address] MD Gastroenterology 09/20/23 Rocky Zepeda DO [address] [place] [address] Physician Gastroenterology 09/20/23 Philip Dumont MD [address] [place] [address] Physician Ophthalmology 09/22/23 documented as of this encounter
--- OUTSIDE RECORDS SUMMARY | 2023-10-28 16:36 | XMS_ITS | Encounter Summary ---
Author Name Unknown Organization [place] Address [address] [place] [address] Care Team Providers Care Armor Officer Name Role Phone ThangKendrickDiana T [facility] Unavailable Rain Galaviz-C Unavailable Tavia Wyatt MD Unavailable Unavailable Erica Farrell APRN PRESCHOOL TEACHER Unavailable Rich Barrett MD Unavailable Neil [place] MD Unavailable Diana Desir [facility] Unavailable [phone] Livan Sharif MD Unavailable Catherine Cm MD Unavailable + Valery Veronica-C Unavailable [phone] Brea Quinn PIPE WASHER PRESCHOOL TEACHER Unavailable Brea Quinn PIPE WASHER PRESCHOOL TEACHER Unavailable Jose Francisco Johnson MD Unavailable Alfonso Renteria MD Unavailable + [phone] Esha Grimm PA-C Primary Care Provider Radha Lomeli PIPE WASHER PRESCHOOL TEACHER Unavailable Frankie Jelenamao Garcia OD Unavailable Pao Joseph RN Unavailable Unavailable Esha Grimm PAcUheC Unavailable [phone] Reason for Visit * Reason Onset Date Comments Procedure 09/08/2023 Encounter Details Date Type Department Care Team (Late st Contact Info) Description 09/08/2023 Telephone [facility] Gastroenterology Clinic [address] 4th [place] [address] Mary Kelsey Procedure Social History [...] often do you attend chur ch or roman catholic services? 1 to 4 [...] Answer Date Recorded PHQ-2 Score 0 06/20/2023 [facility] - Occupational Stress Questionnaire Answer Date Recorded [...] exercise at this level? 30 min 03/10/2023 [place] Depression Scale Answer Date Recorded [place] Depression Score 5 01/14/2021 Last EPDS Self [...] - 09/08/2023 11:28 AM CST Caller: Kim Johnosn Reason for Reschedule/Cancellation (please be detailed, any staff messages or encounters to note?): She stated she talked with someonefor todays cancel and was to hear back right away about working her in for 3/4. Had influenza, but states she is better now. Prior to reschedule please review: Ordering Provider: Lauren Claudio Sedation Determined: moderate Does patient have any ASC Exclusions, please identify?: n Notes on Cancelled Procedure: Procedure: Upper Endoscopy [EGD] Date: Location: [facility]; [address] [place], [place] [address] Surgeon: Yolanda Rescheduled: Yes, Procedure: Upper Endoscopy [EGD] Date: 09/11 [address]: [facility]; [address] [place] [address] Surgeon: Jasvir Sedation Level Scheduled moderate, Reason for Sedation Level ordered Instructions updated and sent: y Does patient need PAC or Pre -Op Rescheduled? : no Did you cancel or rescheduled an EUS procedure? No. L INSPECTOR PAPER documented in this encounter Plan of Treatment Upcoming Encounters Date Type Department Care Team (Late st Contact Info) Description 11/01/2023 8:00 AM CDT Appointment [facility] Imaging [address] [place] [address] Lauren Claudio PA-C [address] [place], [place] [phone] 11/03/2023 8:00 AM CDT Office Visit [address] [phone] JeremíasValery PA-C [address] [place] [address] 11/29/2023 8:00 AM CDT Office Visit [address] [phone] Esha Grimm PA-C [address] [place] [address] 12/19/2023 11:30 AM CDT Hospital Encounter [address] [phone] Rocky Zepeda DO 500 [place], [place] [address] 12/19/2023 11:30 AM CDT - 12/19/2023 12:00 PM CDT Surgery [address] [phone] Rocky Zepeda DO 500 [place], [place] [phone] Esophagoscopy, gastroscopy, duodenoscopy (EGD), combined 01/02/2024 8:00 AM CDT Office Visit [facility] [address] [phone] Lauren Claudio PA-C [address] [place] [address] Kelli Perez MD [address] [place] [id number] Scheduled Procedures Name Priority Associated Diagnoses Date/Ti sd ESOPHAGOGASTRODUODENOSCOPY Eosinophilic esophagitis Esophageal dysphagia 12/19/2023 11:30 AM CDT documented as of this encounter Visit Diagnoses Not on filedocumented in this encounter Additional Health Concerns Assessment Noted Time PHQ-9 Depression Total Score: 4 06/20/20 23 8:40 AM FINAL INSPECTOR PAPER documented as of this encounter Care Teams Armor Officer Relationship Specialty Start Date End Date Esha Grimm PA-C [address] [place] [phone] PCP - General Family Medicine 05/04/23 Diana Desir, [facility] [address] [place] [address] Pharmacist Pharmacist 04/17/21 Rain Galaivz PA-C [address] [place] [address] [address] [place] [address] Physician Traffic Police Officer Dermatology 04/28/21 Tavia Wyatt MD [address] [place] [address] [address] [facility] [address] Dermatology 07/14/21 Erica Farrell APRN PRESCHOOL TEACHER 6405 [facility] [address] [place] [address] Nurse Practitioner Cardiovascular Disease 09/09/21 Rich Barrett MD 516 [facility] 9A [place], [place] 9[address] Physician Ophthalmology 01/21/22 Neil [place] MD 500 [place] [address] Dermatology 02/24/22 Diana Desir, [facility] 3033 [place] [address] Assigned MTM Pharmacist 04/07/22 Livan Sharif MD [address] [facility] [address] [place] [address] Cardiovascular Disease 05/14/22 Catherine Cm MD [address] [place] 4786200 [place] [address] Cardiovascular Disease 07/21/22 Valery Veronica, PAUcheC [address] [place] [address] 701945 Physician Traffic Police Officer Dermatology 07/21/22 Brea Quinn APRN PRESCHOOL TEACHER [address] [place] [address] Nurse Practitioner Dermatology 09/21/22 Brea Quinn APRN PRESCHOOL TEACHER [address] [place] [address] 236382 Assigned Surgical Provider 10/09/22 [place] [address] [address] Assigned Musculoskeletal Provider 10/09/22 Alfonso Renteria MD [address] [address] Assigned Neuroscience Provider 04/02/23 Radha Lomeli APRN PRESCHOOL TEACHER [address] [address] Assigned Heart and Vascular Provider 05/28/23 Jelena David OD [address] [facility] [place] [address] MD Ophthalmology 06/15/23 Pao Joseph, VJ Personal Advocate & Liaison (PAL) Nurse 08/01/23 Esha Grimm, PAUcheC [address] [place] [phone] Assigned PCP 07/16/23 documented as of this encounter
--- OUTSIDE RECORDS SUMMARY | 2023-10-28 16:36 | XMS_ITS | Encounter Summary ---
Author Name Unknown Organization [place] Address [address] [place] [address] Care Team Providers Care Rn Internal Medicine Name Role Phone ThangKendrickDiana T [facility] Unavailable Rain Galaviz-C Unavailable Tavia Wyatt MD Unavailable Unavailable Erica Farrell APRN MAIL ORDER CLERK Unavailable Rich Barrett MD Unavailable Neil Kent MD Unavailable Diana Desir [facility] Unavailable [phone] Livan Sharif MD Unavailable Catherine Cm MD Unavailable + Valery Veronica-C Unavailable [phone] Brea Quinn SEROLOGY TEACHER MAIL ORDER CLERK Unavailable Brea Quinn SEROLOGY TEACHER MAIL ORDER CLERK Unavailable Jose Francisco Johnson MD Unavailable Alfonso Renteria MD Unavailable + [phone] Esha Grimm PA-C Primary Care Provider [phone] Radha Lomeli SEROLOGY TEACHER MAIL ORDER CLERK Unavailable FrankieJelena OD Unavailable [phone] Pao Joseph RN Unavailable Unavailable Esha Grimm PA-C Unavailable [phone] Valery Veronica PA-C Unavailable [phone] Rey Tay MD Unavailable DuaneRocky Unavailable Philip Dumont MD Unavailable [phone] Encounter Details Date Type Department Care Team (Late st Contact Info) Description 09/20/2023 MyC Medical Advice [facility] Gastroenterology Clinic [address] [place] [address] Jeffrey Vieira, RN Social History Tobacco Use Types [...] Answer Date Recorded PHQ-2 Score 0 06/20/2023 [facility] [place] [facility] Occupat ional Health - Occupational Stress [...] exercise at this level? 30 min 03/10/2023 [place] Depression Scale Answer Date Recorded [place] Depression Score 5 01/14/2021 Last EPDS Self [...] Info) Description 11/01/2023 8:00 AM CDT Appointment [facility] Imaging [address] [place] [address] Lauren Claudio PA-C [address] [place] [address] 11/03/2023 8:00 AM CDT Office Visit [address] [phone] Valery Veronica PA-C [address] [place] [address] 11/29/2023 8:00 AM CDT Office Visit [facility] [address] [place] [phone] Esha Grimm PA-C [address] [place] [address] 12/19/2023 11:30 AM CDT Hospital Encounter [facility] 909 [facility] 5th [place] [phone] Rocky Zepeda DO [address] [place] [address] 12/19/2023 11:30 AM CDT - 12/19/2023 12:00 PM CDT Surgery [facility] 909 [facility] [address] 5th [place] [phone] Rocky Zepeda DO 500 [place], [place] 8885[address] Esophagoscopy, gastroscopy, duodenoscopy (EGD), combined 01/02/2024 8:00 AM CDT Office Visit [facility] [address] [place] [phone] Lauren Claudio PA-C [address] [place], [place] [phone] Kelli Perez MD [address] [place] [address] 106 [place], [place] [phone] Scheduled Procedures Name Priority Associated Diagnoses Date/Ti wy ESOPHAGOGASTRODUODENOSCOPY Eosinophilic esophagitis Esophageal dysphagia 12/19/2023 11:30 AM CDT documented as of this encounter Visit Diagnoses Not on filedocumented in this encounter Additional Health Concerns Assessment Noted Time PHQ-9 Depression Total Score: 4 06/20/20 23 8:40 AM BUSINESS QUALITY ASSURANCE ANALYST documented as of this encounter Care Teams Rn Internal Medicine Relationship Specialty Start Date End Date Esha Grimm PA-C [address] [place] [address] PCP - General Family Medicine 05/04/23 Diana Desir, [facility] [address] [place], [place] [address] Pharmacist Pharmacist 04/17/21 Rain Galaviz PA-C [address] [place] [address] [address] [facility] [place] [phone] Physician Top Collar Maker Dermatology 04/28/21 Tavia Wyatt MD [address] [place] [address] DR RA[address] [facility] [place] [address] Dermatology 07/14/21 Erica Farrell APRN MAIL ORDER CLERK [address] [place], [place] [address] Nurse Practitioner Cardiovascular Disease 09/09/21 Rich Barrett MD 516 [facility], [address] [address] Physician Ophthalmology 01/21/22 Neil [place] MD [address] [place] [address] Dermatology 02/24/22 Diana Desir, [facility] 3033 [place], [place] 486286 Assigned MTM Pharmacist 04/07/22 Livan Sharif MD [address] [place], [place] 4[address] Cardiovascular Disease 05/14/22 Catherine Cm MD [address] [place] [address] Cardiovascular Disease 07/21/22 Valery Veronica, PA-C [address] [place] [address]335 Physician Top Collar Maker Dermatology 07/21/22 Brea Quinn APRN MAIL ORDER CLERK 500 [place] [address] Nurse Practitioner Dermatology 09/21/22 Brea Quinn APRN MAIL ORDER CLERK 6401 [facility] [place] [address] Assigned Surgical Provider 10/09/22 [place] [address] [facility] [facility] 300 [place] [address] Assigned Musculoskeletal Provider 10/09/22 Alfonso Renteria MD 5775 [facility] 200 [place], [place] [address] Assigned Neuroscience Provider 04/02/23 Radha Lomeli, SEROLOGY TEACHER MAIL ORDER CLERK 6405 [facility] [address] [place] [address] Assigned Heart and Vascular Provider 05/28/23 Jelena David OD [address] [facility] [address] Ophthalmology 06/15/23 Pao Joseph, VJ Personal Advocate & Liaison (PAL) Nurse 08/01/23 Esha Grimm PA-C [address] [place] [phone] Assigned PCP 07/16/23 Valery Veronica PA-C 909 [place] [address] Physician Top Collar Maker Dermatology 09/19/23 Rey Tay MD 909 [place] [address] MD Gastroenterology 09/20/23 Rocky Zepeda DO [address] [place] [address] Physician Gastroenterology 09/20/23 Philip Dumont MD [address] [place] [address] Physician Ophthalmology 09/22/23 documented as of this encounter
--- OUTSIDE RECORDS SUMMARY | 2023-10-28 16:36 | XMS_ITS | Encounter Summary ---
Author Name Unknown Organization [facility] Address [address] [place] [address] Care Team Providers Care First Crusher Name Role Phone ThangKendrickDiana T [facility] Unavailable Rain Galaviz-C Unavailable Tavia Wyatt MD Unavailable Unavailable Erica Farrell APRN DESIGN INTERN Unavailable Rich Barrett MD Unavailable Neil Kent MD Unavailable Diana Desir [facility] Unavailable [phone] Livan Sharif MD Unavailable Catherine Cm MD Unavailable + Valery Veronica-C Unavailable [phone] Brea Quinn FOOD SERVICE HELPER DESIGN INTERN Unavailable Brea Quinn FOOD SERVICE HELPER DESIGN INTERN Unavailable Jose Francisco Johnson MD Unavailable Alfonso Renteria MD Unavailable + [phone] Esha Grimm PA-C Primary Care Provider Radha Lomeli FOOD SERVICE HELPER DESIGN INTERN Unavailable FrankieJelena OD Unavailable Pao Joseph RN Unavailable Unavailable Esha Grimm PA-C Unavailable [phone] Reason for Visit * Auth/Cert (Routine) Specialty Diagnoses / Procedures Referred By Qian t Referred To Contact Gastroenterology Diagnoses Bloating Dysphagia, unspecified type Bloating [R14.0] Dysphagia, unspecified type [R13.10] Procedures LA UGI ENDOSCOPY DIAG W OR W/O BRUSH/WASH Esophagoscopy, gastroscopy, duodenoscopy (EGD), combined Endoscopy [address] [address] Referral ID Status Reason Start Date Expiration Date Visits Re quested Visits Authorized [id number] 1 1 Encounter Details Date Type Department Care Team (Latest Contact Info) Description 09/12/2023 12:29 PM TELESALES TEAM LEADER - 09/12/2023 2:51 PM TELESALES TEAM LEADER Hospital Encounter [facility] Endoscopy [address] [address] Tyshawn Sprague MD [address] [place] [address] Discharge Disposition: Home or Self Care [...] often do you attend chur ch or congregational services? 1 to 4 times [...] PHQ-2 Score 0 06/20/2023 [facility] - Occupational Stress Questionnaire Answer Date [...] at this level? 30 min 03/10/2023 [place] Depression Scale Answer Date Recorded [place] Depression Score 5 01/14/2021 Last EPDS Self [...] Comments Blood Pressure 93/58 09/12/2023 2:20 PM TELESALES TEAM LEADER Pulse 67 09/12/2023 2:30 PM TELESALES TEAM LEADER Temperature - - Respiratory Rate 29 09/12/2023 2:30 PM TELESALES TEAM LEADER Oxygen Saturation 96% 09/12/2023 2:30 PM TELESALES TEAM LEADER Inhaled Oxygen Concentration - - Weight - [...] needed for anxiety 30 tablet 07/28/2023 10/27/2023 omeprazole (PRILOSEC) [address] capsuleIndications:Ep igastric pain Take 1 capsule (40 mg) by mouth daily 90 capsule 3 09/07/2022 09/16/2023 PARoxetine (PAXIL) 40 MG tablet Take 40 mg by mouth every morning 09/21/2023 documented as of this encounter H&P Notes * Tyshawn Sprague MD - 09/12/2023 1:07 PM CST Kim Johnson [id number] female 23 year old Reason for procedure/surgery: [...] Ablation SVT; Surgeon: Galo Burrell MD; Location: [facility] ESOPHAGOSCOPY, GASTROSCOPY, DUODENOSCOPY (EGD), COMBINED N/A 06/26/2021 [...] Tyshawn Sprague MD 09/12/2023 PCP: Esha Grimm SALES TEAM LEADER documented in this encounter Plan of Treatment Upcoming Encounters Date Type Department Care Team (Late st Contact Info) Description 11/01/2023 8:00 AM CDT Appointment [facility] Imaging [address] [place] [address] See Claudio PABaldo [address] [place] [address] 11/03/2023 8:00 AM CDT Office Visit [address] [phone] Valery Veronica PA-C [address] [place] [address] 11/29/2023 8:00 AM CDT Office Visit [facility] [address] [place] [phone] Esha Grimm PA-C [address] [place] [phone] 12/19/2023 11:30 AM CDT Hospital Encounter [address] [phone] Rocky Zepeda DO [address] [place], [place] [phone] 12/19/2023 11:30 AM CDT - 12/19/2023 12:00 PM CDT Surgery [address] [phone] Rocky Zepeda DO [address] [place] [address] Esophagoscopy, gastroscopy, duodenoscopy (EGD), combined 01/02/2024 8:00 AM CDT Office Visit [facility] [place] [address] [place] [phone] See Claudio PA-C [address] [place], [place] [phone] Kelli Perez MD [address] [address] Scheduled Procedures Name Priority Associated Diagnoses Date/Ti me ESOPHAGOGASTRODUODENOSCOPY Eosinophilic esophagitis Esophageal dysphagia 12/19/2023 11:30 AM CDT documented as of this encounter Procedures Procedure Name Priority Date/Time Associated Diagnosis Comments SURGICAL PATHOLOGY EXAM Routine 09/12/2023 1:41 PM TELESALES TEAM LEADER ESOPHAGOGASTRODUODE NOSCOPY, WITH BIOPSY 09/12/2023 1:10 PM TELESALES TEAM LEADER Bloating Dysphagia, unspecified type UPPER GI ENDOSCOPY Routine 09/12/2023 1: 02 PM TELESALES TEAM LEADER documented in this encounter Results * Surgical Pathology Exam (09/12/2023 1:41 PM TELESALES TEAM LEADER) Case Report Surgical Pathology Report ? Case: [id number] ? Authorizing Provider: ??Tyshawn Sprague MD ?Collected: ? 09/12/2023 01:41 PM ? Ordering Location: ? [facility] ?Received: ?09/12/2023 03:09 PM ? [facility] ? Pathologist: ? Lázaro Jordan MD ? Specimens: ?? A) - Small Intestine, Duodenum, gastric evaluate for H. pylori ? B) - Esophagus, Distal, evaluate for eosinophilic esophagitis ? C) - Esophagus, Proximal, evaluate for eosinophilic esophagitis ? 09/14/2023 7:16 AM [facility] Final Diagnosis A(1). Stomach, [...] for dysplasia or malignancy 09/14/2023 7:16 AM [facility] Comment Prominent intra-epithelial eosinophilia (approximately 40 eosinophils per high-power field in the distal esophagus, and 25 eosinophils per high-power field in the proximal esophagus) is identified. In the appropriate clinical and endoscopic setting, findings are compatible with eosinophilic esophagitis. 09/14/2023 7:16 AM [facility] Clinical Information Procedure: Esophagoscopy, gastroscopy, duodenoscopy (EGD), combined Pre-op Diagnosis: Bloating [R14.0] Dysphagia, unspecified type [R13.10] Post-op Diagnosis: R14.0 - Bloating [ICD-10-CM] R13.10 - Dysphagia, unspecified type [ICD-10-CM] 09/14/2023 7:16 AM [facility] Gross Description A(1). Small Intestine, [...] (Margret David, Biopsy Tech) 09/14/2023 7:16 AM [facility] Microscopic Description Microscopic examination was performed. 09/14/2023 7:16 AM [facility] Performing Labs The technical component of this testing was completed at [facility] 09/14/2023 7:16 AM [facility] Case Images 09/14/2023 7:16 AM [facility] Biopsy DUODENAL STRUCTURE / Unknown 09/12/2023 1:41 PM TELESALES TEAM LEADER 09/12/2023 3:09 PM TELESALES TEAM LEADER Specimen from unspecified body site obtained by biopsy (specimen) STRUCTURE OF LOWER THIRD OF ESOPHAGUS / Unknown 09/12/2023 1:42 PM TELESALES TEAM LEADER 09/12/2023 3:09 PM TELESALES TEAM LEADER Specimen from unspecified body site obtained by biopsy (specimen) STRUCTURE OF UPPER THIRD OF ESOPHAGUS / Unknown 09/12/2023 1:44 PM TELESALES TEAM LEADER 09/12/2023 3:09 PM TELESALES TEAM LEADER Tyshawn [facility] [address] Lab (1st floor, no room number) [place] [address], [place] [phone] [facility] [address] 1st floor, Room [address] [place] [address], [place] [phone] * UPPER GI ENDOSCOPY (09/12/2023 1:02 PM TELESALES TEAM LEADER) [facility] Upper GI Endoscopy [facility] [address] ??[place] ??[id number] ___ Patient Name: Kim Johnson ?Procedure Date: 09/12/2023 1:02 PM ? Date of : 2000 ? Admit Type: Outpatient Age: 23 ? Room: [place] [address] Note Status: Finalized ?Attending MD: TYSHAWN SPRAGUE MD, Instrument Name: [id number] Gastroscope ___ Procedure: ?Upper GI endoscopy Indications: [...] Procedure Code(s): ? --- Professional --- ? 66817, Esophagogastroduode noscopy, flexible, transoral; with biopsy, ? single or multiple Diagnosis Code(s): ? --- Professional --- ? K22.89, Other specified disease of esophagus ? K44.9, Diaphragmatic hernia without obstruction or gangrene ? K29.70, Gastritis, unspecified, without bleeding ? K21.9, Gastro-esophageal reflux disease without esophagitis ? R07.9, Chest pain, unspecified CPT copyright 2021 [employer]. All rights reserved. The codes documented in this report are preliminary and upon beauty parlor cleaner review may be revised to meet current [...] 1:36:53 PM RADIOLOGY RESULTS 09/12/2023 1:02 PM TELESALES TEAM LEADER See Claudio PA-C PROCEDURES RADIOLOGY RESULTS documented in this encounter Visit Diagnoses Not on filedocumented in this encounter Administered Medications Inactive Administered Medications - up to 3 most recent administrations Medication Order MAR Action Action Date Dose Rate Site fentaNYL (PF) (SUBLIMAZE) injection Intravenous, PRN, Administer over 3-5 Minutes, Starting on Tue09/12/23 at 1326, Intra-procedure $Given 09/12/2023 1:26 PM TELESALES TEAM LEADER 100 mcg midazolam (VERSED) injection Intravenous, Administer over 2 Minutes, PRN, Starting on Tue09/12/23 at 1326, Intra-procedure $Given 09/12/2023 1:28 PM TELESALES TEAM LEADER 2 mg $Given 09/12/2023 1:26 PM TELESALES TEAM LEADER 2 mg documented in this encounter Active and Recently Administered Medications Times are shown in TELESALES TEAM LEADER. PRN Medication Order 09/10/2023 09/11/2023 09/12/2023 fentaNYL (PF) (SUBLIMAZE) injection Intravenous, PRN, Administer over 3-5 Minutes, Starting on Tue09/12/23 at 1326, Intra-procedure 1326 ($Given - Provi lynn: Jess Bucio RN) midazolam (VERSED) injection Intravenous, Administer over 2 Minutes, PRN, Starting on Tue09/12/23 at 1326, Intra-procedure 1326 ($Given - Provi lynn: Jess Bucio, RN)1328 ($Given - Provider: Jess Bucio, VJ) documented in this encounter Additional Health Concerns Assessment Noted Time PHQ-9 Depression Total Score: 4 06/20/20 23 8:40 AM TELESALES TEAM LEADER documented as of this encounter Care Teams First Crusher Relationship Specialty Start Date End Date Esha Grimm PA-C [address] [place] [address] PCP - General Family Medicine 05/04/23 Diana DesirCOX BRANSON [address] [place] [address] Pharmacist Pharmacist 04/17/21 Rain Galaviz PA-C [address] [place] [address] [address] [place] [address] Physician Airport Security Screener Dermatology 04/28/21 Tavia Wyatt MD [address] [place] [address] [address] [place] [address] Dermatology 07/14/21 Erica Farrell APRN DESIGN INTERN [address] [facility] [address] [place] [address] Nurse Practitioner Cardiovascular Disease 09/09/21 Rich Barrett MD [address] [phone] Physician Ophthalmology 01/21/22 Neil Kent MD [address] [place], [place] [phone] Dermatology 02/24/22 Diana Desir, [facility] [address] [place], [place] [address] Assigned MTM Pharmacist 04/07/22 Livan Sharif MD 6405 [facility] [address] [place], [place] [address] Cardiovascular Disease 05/14/22 Catherine Cm MD [address] [facility] [place], [place] 402315 Cardiovascular Disease 07/21/22 Valery Veronica, PA-C [address] [place], [place] 5826[address] Physician Airport Security Screener Dermatology 07/21/22 Brea Quinn APRN DESIGN INTERN 500 [place], [place] 4775[address] Nurse Practitioner Dermatology 09/21/22 Brea Quinn APRN DESIGN INTERN [address] [place] [address] 248722 Assigned Surgical Provider 10/09/22 [place] [address] [place] [address] 7289[address] Assigned Musculoskeletal Provider 10/09/22 Alfonso Renteria MD 5775 [facility] 200 [place], [place] 66[address] Assigned Neuroscience Provider 04/02/23 Radha Lomeli APRN DESIGN INTERN [address] [place] [address] Assigned Heart and Vascular Provider 05/28/23 Jelena David OD 3[address] [facility] [place] [address] Ophthalmology 06/15/23 Pao Joseph, VJ Personal Advocate & Liaison (PAL) Nurse 08/01/23 Esha Grimm, PA-C [address] [place] [phone] Assigned PCP 07/16/23 documented as of this encounter
--- OUTSIDE RECORDS SUMMARY | 2023-10-28 16:36 | XMS_ITS | Encounter Summary ---
Author Name Unknown Organization [employer] Address [address] [place] [address] Care Team Providers Care Purse Seining Hand Name Role Phone ThangKendrickDiana T [facility] Unavailable Rain Galaviz-C Unavailable Tavia Wyatt MD Unavailable Unavailable Erica aFrrell APRN DIMENSION STONE QUARRY SUPERVISOR Unavailable Rich Barrett MD Unavailable Neil Kent MD Unavailable Diana Desir [facility] Unavailable [phone] Livan Sharif MD Unavailable Catherine Cm MD Unavailable + Valery Veronica-C Unavailable [phone] Brea Quinn DIRECTOR OF PROMOTIONS DIMENSION STONE QUARRY SUPERVISOR Unavailable Brea Quinn DIRECTOR OF PROMOTIONS DIMENSION STONE QUARRY SUPERVISOR Unavailable Jose Francisco Johnson MD Unavailable Alfonso Renteria MD Unavailable + [phone] Esha Grimm PA-C Primary Care Provider Radha Lomeli DIRECTOR OF PROMOTIONS DIMENSION STONE QUARRY SUPERVISOR Unavailable [phone] FrankieJelena OD Unavailable Pao Joseph RN Unavailable Unavailable Jesus Grimmyllincoln DOWC Unavailable [phone] Valery Veronica PA-C Unavailable [phone] Rey Tay MD Unavailable Duane Rocky Unavailable Philip Dumont MD Unavailable [phone] Encounter Details Date Type Department Care Team (Late st Contact Info) Description 09/20/2023 Telephone [facility] [address] 4th [place] [address] Jeffery Vieira, RN Social History [...] often do you attend chur ch or lutheran services? 1 to 4 times per year [...] Answer Date Recorded PHQ-2 Score 0 06/20/2023 [facility] - Occupational Stress Questionnaire Answer [...] exercise at this level? 30 min 03/10/2023 [place] Depression Scale Answer Date Recorded [place] Depression Score 5 01/14/2021 Last EPDS Self [...] Description 11/01/2023 8:00 AM CDT Appointment [facility] Imaging [address] [place] [phone] Lauren Claudio, ROVERTO [address] [place] [address] 11/03/2023 8:00 AM CDT Office Visit [address] [phone] Valery Veronica PA-C [address] [place] [address] 11/29/2023 8:00 AM CDT Office Visit [facility] [address] [place] [phone] Esha Grimm PA-C [address] [place] [phone] 12/19/2023 11:30 AM CDT Hospital Encounter [address] [phone] Rocky Zepeda DO 500 [place], [place] [address] 12/19/2023 11:30 AM CDT - 12/19/2023 12:00 PM CDT Surgery [address] [phone] Rocky Zepeda DO 500 [place] [address] Esophagoscopy, gastroscopy, duodenoscopy (EGD), combined 01/02/2024 8:00 AM CDT Office Visit [facility] [address] [place] [phone] Lauren Claudio PA-C [address] [place], [place] [phone] Kelli Perez MD [address] [facility] 106 [place], [place] [address] Scheduled Procedures Name Priority Associated Diagnoses Date/Ti ma ESOPHAGOGASTRODUODENOSCOPY Eosinophilic esophagitis Esophageal dysphagia 12/19/2023 11:30 AM CDT documented as of this encounter Visit Diagnoses Not on filedocumented in this encounter Additional Health Concerns Assessment Noted Time PHQ-9 Depression Total Score: 4 06/20/20 8:40 AM RECONSIGNMENT CLERK documented as of this encounter Care Teams Purse Seining Hand Relationship Specialty Start Date End Date Esha Grimm PA-C [address] [place] [phone] PCP - General Family Medicine 05/04/23 Diana Desir, [facility] [address] [place] [address] Pharmacist Pharmacist 04/17/21 Rain Galaviz PA-C [address] [place] [address] [address] [place] [address] Physician Head Operator Dermatology 04/28/21 Tavia Wyatt MD [address] [place] [address] [address] [place] [address] Dermatology 07/14/21 Erica Farrell APRN DIMENSION STONE QUARRY SUPERVISOR 6405 [facility] [address] [place] [address] Nurse Practitioner Cardiovascular Disease 09/09/21 Rich Barrett MD [address] [facility] [address] [place], [place] 79[address] Physician Ophthalmology 01/21/22 Neil Kent MD 500 [place], [place] [phone] Dermatology 02/24/22 Diana Desir, [facility] 3033 [place], [place] 6[address]76 Assigned MTM Pharmacist 04/07/22 Livan Sharif MD [address] [facility] [address] [place] 4[address] Cardiovascular Disease 05/14/22 Catherine Cm MD [address] [facility]00 [place] [address] Cardiovascular Disease 07/21/22 Valery Veronica, PAUcheC 909 [place], [place] [address] Physician Head Operator Dermatology 07/21/22 Brea Quinn APRN DIMENSION STONE QUARRY SUPERVISOR 500 [place], [place] 939[address] Nurse Practitioner Dermatology 09/21/22 Brea Quinn APRN DIMENSION STONE QUARRY SUPERVISOR [address] [place], [place] 899062 Assigned Surgical Provider 10/09/22 [place] [address] [place] [address] Assigned Musculoskeletal Provider 10/09/22 Alfonso Renteria MD [address] [place] [address] Assigned Neuroscience Provider 04/02/23 Armani Radha ARLENE Stovall DIMENSION STONE QUARRY SUPERVISOR [address] [place] [address] Assigned Heart and Vascular Provider 05/28/23 Jelena David OD [address] [facility] [place] [address] Ophthalmology 06/15/23 Pao Joseph, VJ Personal Advocate & Liaison (PAL) Nurse 08/01/23 Esha Grimm PA-C [address] [place] [phone] Assigned PCP 07/16/23 Valery Veronica PAUcheC 9 [place], [place] [address] Physician Head Operator Dermatology 09/19/23 Rey Tay MD 9 [place], [place] [address]425 Gastroenterology 09/20/23 Rocky Zepeda DO [address] [place] [address]13[address] Physician Gastroenterology 09/20/23 Philip Dumont MD [address] [place] [address] Physician Ophthalmology 09/22/23 documented as of this encounter
--- OUTSIDE RECORDS SUMMARY | 2023-10-28 16:36 | XMS_ITS | Encounter Summary ---
Author Name Unknown Organization [place] Address [address] [place] [address] Care Team Providers Care Nut Roaster Helper Name Role Phone ThangKendrickDiana T [facility] Unavailable Rain Galaviz-C Unavailable Tavia Wyatt MD Unavailable Unavailable Erica Farrell APRN COAL TOWER OPERATOR Unavailable Rich Barrett MD Unavailable Neil Kent MD Unavailable Diana Desir [facility] Unavailable [phone] Livan Sharif MD Unavailable Catherine Cm MD Unavailable + Valery Veronica-C Unavailable [phone] Brea Quinn SUPERVISOR REACTOR FUELING COAL TOWER OPERATOR Unavailable Brea Quinn SUPERVISOR REACTOR FUELING COAL TOWER OPERATOR Unavailable Jose Francisco Johnson MD Unavailable Alfonso Renteria MD Unavailable + [phone] Esha Grimm PA-C Primary Care Provider Radha Lomeli SUPERVISOR REACTOR FUELING COAL TOWER OPERATOR Unavailable Frankie Jelena Garcia OD Unavailable Pao Joseph RN Unavailable Unavailable Ehsa Grimm PA-C Unavailable [phone] Valery Veronica PA-C Unavailable Rey Tay MD Unavailable Rocky Zepeda Unavailable Reason for Visit * Reason Comments Medication Therapy Management Hospital F/U Encounter Details Date Type Department Care Team (Late st Contact Info) Description 09/21/2023 4:00 PM CDT Virtual Visit [address] [address] Diana Desir, [facility] [address] [place] [address] Anxiety (Primary Dx); Moderate major [...] Date Recorded PHQ-2 Score 0 06/20/2023 [facility] [place] - Occupational Stress Questionnaire Answer Date Recorded [...] exercise at this level? 30 min 03/10/2023 [place] Depression Scale Answer Date Recorded [place] Depression Score 5 01/14/2021 Last EPDS Self [...] receive an email or text message from [employer] with a link to a survey related to your ???clinical pharmacist. To schedule another MTM appointment, please call the clinic directly or you may call the MTM scheduling line at [phone] or toll-free at . My Clinical Pharmacist's contact information: Please feel free to contact me with any questions or concerns you have. Diana Desir, PharmD, BCACP Medication Therapy Management Provider, [facility] documented in this encounter Progress Notes * [...] summary of these recommendations was sent via Tunii. Diana Desir, PharmD, BCACP Medication Therapy Management Provider, [facility] [phone] Telemedicine Visit Details Type of service: Telephone visit Start Time: 4:06 PM End Time: 4:13 PM Medication Therapy Recommendations No medication therapy recommendations to display documented in this encounter Plan of Treatment Upcoming Encounters Date Type Department Care Team (Late st Contact Info) Description 11/01/2023 8:00 AM CDT Appointment [facility] [address] [place] [address] Lauren Claudio PA-C [address] [place] [address] 11/03/2023 8:00 AM CDT Office Visit [address] [phone] Valery Veronica PA-C [address] [place] [address] 11/29/2023 8:00 AM CDT Office Visit [facility] [address] [place] [phone] Esha Grimm PA-C [address] [place] [phone] 12/19/2023 11:30 AM CDT Hospital Encounter [address] [phone] Rocky Zepeda DO [address] [place] [address] 12/19/2023 11:30 AM CDT - 12/19/2023 12:00 PM CDT Surgery [address] [phone] Rocky Zepeda DO 500 [place] [address] Esophagoscopy, gastroscopy, duodenoscopy (EGD), combined 01/02/2024 8:00 AM CDT Office Visit [facility] [address] [place] [phone] Lauren Claudio PA-C [address] [place], [place] [phone] Kelli Perez MD 606 [facility] 106 [place], [place] 495474 Scheduled Procedures Name Priority Associated Diagnoses Date/Ti or ESOPHAGOGASTRODUODENOSCOPY Eosinophilic esophagitis Esophageal dysphagia 12/19/2023 11:30 AM CDT documented as of this encounter Visit Diagnoses Diagnosis Anxiety- Primary Anxiety state, unspecified Moderate major depression (H) Major depressive disorder, single episode, moderate Eosinophilic esophagitis Esophageal dysphagia Dysphagia, pharyngoesophageal phase documented in this encounter Additional Health Concerns Assessment Noted Time PHQ-9 Depression Total Score: 4 06/20/20 23 8:40 AM FIRE SPRINKLER SERVICE TECHNICIAN documented as of this encounter Care Teams Nut Roaster Helper Relationship Specialty Start Date End Date Esha Grimm PA-C [address] [place] [phone] PCP - General Family Medicine 05/04/23 Diana Desir, [facility] [address] [place] [address] Pharmacist Pharmacist 04/17/21 Rain Galaviz PA-C [address] [place] [address] [address] [facility] [place] [address] Physician Automobile Designer Dermatology 04/28/21 Tavia Wyatt MD [address] [facility] [address] [facility] [place] [address] Dermatology 07/14/21 Erica Farrell APRN COAL TOWER OPERATOR [address] [place], [place] [address] Nurse Practitioner Cardiovascular Disease 09/09/21 Rich Barrett MD 516 [facility] 9A [place] [address] Physician Ophthalmology 01/21/22 Neil Kent MD 500 [place], [place] 686765 Dermatology 02/24/22 [facility] 30[address] [place], [place] 082046 Assigned MTM Pharmacist 04/07/22 Livan Sharif MD [address] [place] [address] Cardiovascular Disease 05/14/22 Catherine Cm MD [address] [facility]00 [place] [address] Cardiovascular Disease 07/21/22 Valery Veronica, PA-C [address] [place] [address] Physician Automobile Designer Dermatology 07/21/22 Brea Quinn APRN COAL TOWER OPERATOR 500 [place] [address] Nurse Practitioner Dermatology 09/21/22 Brea Quinn APRN COAL TOWER OPERATOR 6401 [facility] [place] [address] Assigned Surgical Provider 10/09/22 [place] [address] [facility] 300 [place] [address] Assigned Musculoskeletal Provider 10/09/22 Alfonso Renteria MD 5775 [facility] 200 [place], [place] 588166 Assigned Neuroscience Provider 04/02/23 Radha Lomeli APRN COAL TOWER OPERATOR [address] 8890200 [place] [address] Assigned Heart and Vascular Provider 05/28/23 Jelena David OD 3305 [facility] [place] [address] Ophthalmology 06/15/23 Pao Joseph, VJ Personal Advocate & Liaison (PAL) Nurse 08/01/23 Esha Grimm PA-C [address] [place] [phone] Assigned PCP 07/16/23 Valery Veronica PA-C 909 [place] [address] Physician Automobile Designer Dermatology 09/19/23 Rey Tay MD 909 [place] [address] MD Gastroenterology 09/20/23 Rocky Zepeda DO 500 [place] [address] Physician Gastroenterology 09/20/23 documented as of this encounter
--- OUTSIDE RECORDS SUMMARY | 2023-10-28 16:36 | XMS_ITS | Encounter Summary ---
Author Name Unknown Organization [place] Address [address] [place] [address] Care Team Providers Care Hay Sorter Name Role Phone ThangKendrickDiana T [facility] Unavailable Rain Galaviz-C Unavailable Tavia Wyatt MD Unavailable Unavailable Erica Farrell APRN CLIENT TECHNICAL SPECIALIST Unavailable Rich Barrett MD Unavailable Neil Kent MD Unavailable Diana Desir [facility] Unavailable [phone] Livan Sharif MD Unavailable Catherine Cm MD Unavailable + Valery Veronica-C Unavailable [phone] Brea Quinn PRODUCTION PATTERN MAKER CLIENT TECHNICAL SPECIALIST Unavailable [phone] Brea Quinn PRODUCTION PATTERN MAKER CLIENT TECHNICAL SPECIALIST Unavailable Jose Francisco Johnson MD Unavailable Alfonso Renteria MD Unavailable + [phone] Esha Grimm PA-C Primary Care Provider Radha Lomeli PRODUCTION PATTERN MAKER CLIENT TECHNICAL SPECIALIST Unavailable [phone] RfankieJelena OD Unavailable [phone] Pao Joseph RN Unavailable Unavailable Esha Grimm PA-C Unavailable [phone] Valery Veronica PA-C Unavailable Rey Tay MD Unavailable ZepedaRocky Unavailable Encounter Details Date Type Department Care Team (Late st Contact Info) Description 09/20/2023 MyC Medical Advice [facility] [address] [place] [phone] Esha Grimm PA-C [address] [place] [address] Social History Tobacco Use Types Packs/Day [...] week 03/10/2023 How often do you attend [facility]? 1 to 4 times per year [...] exercise at this level? 30 min 03/10/2023 [place] Depression Scale Answer Date Recorded [place] Depression Score 5 01/14/2021 Last EPDS Self [...] [facility] [address] [place] [address] Lauren Claudio PA-C [address] [place], [place] [phone] 11/03/2023 8:00 AM CDT Office Visit [address] [phone] Valery Veronica PA-C [address] [place] [address] 11/29/2023 8:00 AM CDT Office Visit [facility] [address] [place] [phone] Esha Grimm PA-C [address] [place] [address] 12/19/2023 11:30 AM CDT Hospital Encounter [facility] 909 [facility] 5th [place] [phone] Rocky Zepeda, [address] [place] [address] 12/19/2023 11:30 AM CDT - 12/19/2023 12:00 PM CDT Surgery [facility] 909 [facility] SE 5th [place] [phone] Rocky Zepeda, DO 500 [facility] [place] [address] Esophagoscopy, gastroscopy, duodenoscopy (EGD), combined 01/02/2024 8:00 AM CDT Office Visit [facility] [address] [place] [phone] Lauren Claudio PA-C [address] [place], [place] [phone] Kelli Perez MD [address] [place] [address] [phone] Scheduled Procedures Name Priority Associated Diagnoses Date/Ti in ESOPHAGOGASTRODUODENOSCOPY Eosinophilic esophagitis Esophageal dysphagia 12/19/2023 11:30 AM CDT documented as of this encounter Visit Diagnoses Not on filedocumented in this encounter Additional Health Concerns Assessment Noted Time PHQ-9 Depression Total Score: 4 06/20/20 23 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 PROGRAM MANAGER documented as of this encounter Care Teams Hay Sorter Relationship Specialty Start Date End Date Esha Grimm PA-C [address] [place] [phone] PCP - General Family Medicine 05/04/23 Diana Desir, [facility] [address] [place] [address] Pharmacist Pharmacist 04/17/21 Rain Galaviz PA-C [address] [place] [address] [address] 250 [place] [address] Physician Food And Nutrition Teacher Dermatology 04/28/21 Tavia Wyatt MD [address] [place] [address] [address] [facility] [facility] [place] [address] Dermatology 07/14/21 Erica Farrell APRN CLIENT TECHNICAL SPECIALIST [address] [place] [address] Nurse Practitioner Cardiovascular Disease 09/09/21 Rich Barrett MD [address] [address] Physician Ophthalmology 01/21/22 Neil Kent MD [address] [place] [address] [id number] Dermatology 02/24/22 Diana Desir, [facility] 3033 [place], [place] 671026 Assigned MTM Pharmacist 04/07/22 Livan Sharif MD [address] 00 [place] [address] Cardiovascular Disease 05/14/22 Catherine Cm MD [address] [place] [address] Cardiovascular Disease 07/21/22 Valery Veronica, PAUcheC [address] [place] [address]83005 Physician Food And Nutrition Teacher Dermatology 07/21/22 Brea Quinn APRN CLIENT TECHNICAL SPECIALIST 500 [place] [address] Nurse Practitioner Dermatology 09/21/22 Brea Quinn APRN CLIENT TECHNICAL SPECIALIST 6401 [place] [address] Assigned Surgical Provider 10/09/22 [place] [address] [facility] 300 [place], [place] 257907 Assigned Musculoskeletal Provider 10/09/22 Alfonso Renteria MD 5775 [facility] 200 [place], [place] 64[address]26 Assigned Neuroscience Provider 04/02/23 Radha Lomeli APRN CLIENT TECHNICAL SPECIALIST [address]405 [facility] [address] [place], [place] 507335 Assigned Heart and Vascular Provider 05/28/23 Jelena David OD [address] [facility] [place] [address] Ophthalmology 06/15/23 Pao Joseph, VJ Personal Advocate & Liaison (PAL) Nurse 08/01/23 Esha Grimm PA-C [address] [place] [phone] Assigned PCP 07/16/23 Valery Veronica PA-C 909 [place], [place] 444705 Physician Food And Nutrition Teacher Dermatology 09/19/23 Rey Tay MD 909 [place], [place] 562355 MD Gastroenterology 09/20/23 Rocky Zepeda DO 500 [place], [place] 197355 Physician Gastroenterology 09/20/23 documented as of this encounter
--- OUTSIDE RECORDS SUMMARY | 2023-10-28 16:36 | XMS_ITS | Encounter Summary ---
Author Name Unknown Organization [facility] Address [address] [place] [address] Care Team Providers Care Paper Rewinder Name Role Phone ThangKendrickDiana T [facility] Unavailable Rain Galaviz-C Unavailable [phone] Tavia Wyatt MD Unavailable Unavailable Erica Farrell APRN AGER OPERATOR Unavailable Rich Barrett MD Unavailable Neil Kent MD Unavailable Diana Desir [facility] Unavailable [phone] Livan Sharif MD Unavailable Catherine Cm MD Unavailable + Valery Veronica-C Unavailable [phone] Brea Quinn INTERNAL GRINDING MACHINE OPERATOR AGER OPERATOR Unavailable Brea Quinn INTERNAL GRINDING MACHINE OPERATOR AGER OPERATOR Unavailable Jose Francisco Johnson MD Unavailable Alfonso Renteria MD Unavailable + [phone] Esah Grimm PA-C Primary Care Provider [phone] Radha Lomeli INTERNAL GRINDING MACHINE OPERATOR AGER OPERATOR Unavailable [phone] FrankieJelena OD Unavailable Pao Joseph RN Unavailable Unavailable Esha Grimm PAUcheC Unavailable [phone] Reason for Visit * Reason Comments Medication Refill Encounter Details Date Type Department Care Team (Late st Contact Info) Description 09/16/[address] [address] Marija Edgar APRN AGER OPERATOR Medication Refill Social History Tobacco Use Types [...] PHQ-2 Score 0 06/20/2023 [facility] Occupat ional Health - Occupational Stress [...] exercise at this level? 30 min 03/10/2023 [place] Depression Scale Answer Date Recorded [place] Depression Score 5 01/14/2021 Last EPDS Self [...] 11/01/2023 8:00 AM CDT Appointment [facility] [address] [place] [address] Lauren Claudio PA-C [address] [place] [address] 11/03/2023 8:00 AM CDT Office Visit [address] [phone] Valery Veronica PA-C [address] [place] [address] 11/29/2023 8:00 AM CDT Office Visit [facility] [address] [place] [phone] Esha Grimm PA-C [address] [place] [address] 12/19/2023 11:30 AM CDT Hospital Encounter [address] [phone] Rocky Zepeda DO 500 [place] [address] 12/19/2023 11:30 AM CDT - 12/19/2023 12:00 PM CDT Surgery [address] [phone] Rocky Zepeda DO 500 [place] [address] Esophagoscopy, gastroscopy, duodenoscopy (EGD), combined 01/02/2024 8:00 AM CDT Office Visit [facility] [address] [place] [phone] Lauren Claudio PA-C [address] [place], [place] [phone] Kelli Perez MD [address] [place] [address] 106 [place], [place] 781534 Scheduled Procedures Name Priority Associated Diagnoses Date/Ti sd ESOPHAGOGASTRODUODENOSCOPY Eosinophilic esophagitis Esophageal dysphagia 12/19/2023 11:30 AM CDT documented as of this encounter Visit Diagnoses Diagnosis Epigastric pain Abdominal pain, epigastric Eosinophilic esophagitis Esophageal dysphagia Dysphagia, pharyngoesophageal phase documented in this encounter Additional Health Concerns Assessment Noted Time PHQ-9 Depression Total Score: 4 06/20/20 23 8:40 AM AGRICULTURE INSTRUCTOR documented as of this encounter Care Teams Paper Rewinder Relationship Specialty Start Date End Date Esha Grimm PA-C [address] [place] [phone] PCP - General Family Medicine 05/04/23 Diana Desir, [facility] [address] [place] [address] Pharmacist Pharmacist 04/17/21 Rain Galaviz PA-C [address] [place] [address] [address] [place] [address] Physician Drywall Sprayer Dermatology 04/28/21 Tavia Wyatt MD [address] [place] [address] [address] [place] [address] Dermatology 07/14/21 Erica Farrell APRN AGER OPERATOR [address] [place], [place] 9489[address] Nurse Practitioner Cardiovascular Disease 09/09/21 Rich Barrett MD 516 [facility] 9A [place], [place] [phone] Physician Ophthalmology 01/21/22 Neil Kent MD 500 [place], [place] [address]95 Dermatology 02/24/22 Diana Desir, [facility] 3033 [place], [place] 549996 Assigned [place] Pharmacist 04/07/22 Livan Sharif MD [address], [facility]00 [place], [place] 7[address]25 Cardiovascular Disease 05/14/22 Catherine Cm MD [address] 6376[address] Cardiovascular Disease 07/21/22 Valery Veronica PAUcheC 909 [place], [place] 721465 Physician Drywall Sprayer Dermatology 07/21/22 Brea Quinn APRN AGER OPERATOR 500 [place], [place] 596345 Nurse Practitioner Dermatology 09/21/22 Brea Quinn APRN AGER OPERATOR 6401 [facility] [address] Assigned Surgical Provider 10/09/22 [place] [address] [facility] 300 [place] [address] Assigned Musculoskeletal Provider 10/09/22 Alfonso Renteria MD 5775 [facility] 200 [place], [place] 3[address] Assigned Neuroscience Provider 04/02/23 Radha Lomeli APRN AGER OPERATOR 6405 [facility] [address] [place] [address] Assigned Heart and Vascular Provider 05/28/23 Jelena David OD [address] [facility] [place] [address] Ophthalmology 06/15/23 Pao Joseph, VJ Personal Advocate & Liaison (PAL) Nurse 08/01/23 Esha Grimm, PA-C [address] [place] [phone] Assigned PCP 07/16/23 documented as of this encounter
--- OUTSIDE RECORDS SUMMARY | 2023-10-28 16:36 | XMS_ITS | Encounter Summary ---
Author Name Unknown Organization [facility] Address [address] [place] [address] Care Team Providers Care Peoplesoft Hrms Developer Name Role Phone ThangKendrickDiana T [facility] Unavailable Rain Galaviz-C Unavailable [phone] Tavia Wyatt MD Unavailable Unavailable Erica Farrell APRN SECURITY ASSESSOR Unavailable Rich Barrett MD Unavailable Neil Kent MD Unavailable Diana Desir [facility] Unavailable [phone] Livan Sharif MD Unavailable Catherine Cm MD Unavailable + Valery Veronica-C Unavailable [phone] Brea Quinn ELECTRONICS ENGINEERING TECHNOLOGIST SECURITY ASSESSOR Unavailable Brea Quinn ELECTRONICS ENGINEERING TECHNOLOGIST SECURITY ASSESSOR Unavailable Jose Francisco Johnson MD Unavailable Alfonso Renteria MD Unavailable + [phone] Esha Grimm PA-C Primary Care Provider [phone] Radha Lomeli ELECTRONICS ENGINEERING TECHNOLOGIST SECURITY ASSESSOR Unavailable FrankieJelena OD Unavailable Pao Joseph RN Unavailable Unavailable Esha Grimm PA-C Unavailable [phone] Valery Veronica PA-C Unavailable [phone] Rey Tay MD Unavailable Rocky Zepeda Unavailable Reason for Visit * Reason Onset Date Comments Refill Request 09/21/2023 Encounter Details Date Type Department Care Team (Late st Contact Info) Description 09/21/[address] [facility] [address] [place] [address] Esha Grimm PA-C [address] [place] [address] Refill Request Social History Tobacco Use [...] How often do you attend chur or islam services? 1 to 4 times [...] Score 0 06/20/2023 [facility] - Occupational Stress Questionnaire Answer [...] exercise at this level? 30 min 03/10/2023 [place] Depression Scale Answer Date Recorded [place] Depression Score 5 01/14/2021 Last EPDS Self [...] Info) Description 11/01/2023 8:00 AM CDT Appointment [facility] [address] [place] [phone] Lauren Claudio PA-C [address] [place], [place] [phone] 11/03/2023 8:00 AM CDT Office Visit [address] [phone] Valery Veronica PA-C 909 [place] [address] 11/29/2023 8:00 AM CDT Office Visit [facility] [address] [place] [phone] Esha Grimm PA-C [address] [place] [address] 12/19/2023 11:30 AM CDT Hospital Encounter [facility] [address] [place] [address] 5th [place] [phone] Rocky Zepeda, DO 500 [place], [place] 138125 12/19/2023 11:30 AM CDT - 12/19/2023 12:00 PM CDT Surgery [facility] 909 [facility] 5th [place] [phone] Rocky Zepeda DO 500 [place] [address] Esophagoscopy, gastroscopy, duodenoscopy (EGD), combined 01/02/2024 8:00 AM CDT Office Visit [facility] [address] [address] Lauren Claudio PA-C [address] [place], [place] [phone] Kelli Perez MD [address] [place] [address] 215904 Scheduled Procedures Name Priority Associated Diagnoses Date/Ti mo ESOPHAGOGASTRODUODENOSCOPY Eosinophilic esophagitis Esophageal dysphagia 12/19/2023 11:30 AM CDT documented as of this encounter Visit Diagnoses Diagnosis Anxiety- Primary Anxiety state, unspecified Eosinophilic esophagitis Esophageal dysphagia Dysphagia, pharyngoesophageal phase documented in this encounter Additional Health Concerns Assessment Noted Time PHQ-9 Depression Total Score: 4 06/20/20 23 8:40 AM HAND PLUG SHAPER documented as of this encounter Care Teams Peoplesoft Hrms Developer Relationship Specialty Start Date End Date Esha Grimm PA-C [address] [place] [address] PCP - General Family Medicine 05/04/23 Diana Desir [facility] [address] [place] [address] Pharmacist Pharmacist 04/17/21 Rain Galaviz PA-C [address] [place] [address] [address] [place] [address] Physician Paraffiner Dermatology 04/28/21 Tavia Wyatt MD [address] [place] [address] [address] [facility] [address] Dermatology 07/14/21 Erica Farrell APRN SECURITY ASSESSOR [address] [place] [address] Nurse Practitioner Cardiovascular Disease 09/09/21 Rich Barrett MD [address] [place] [address] 731355 Physician Ophthalmology 01/21/22 Neil Kent MD [address] [place] [address] 194415 Dermatology 02/24/22 Diana Desir, [facility] [address] [place] [address] Assigned MTM Pharmacist 04/07/22 Livan Sharif MD [address] [place] 384765 Cardiovascular Disease 05/14/22 Catherine Cm MD 6405 [facility] [address] [place] 504135 Cardiovascular Disease 07/21/22 Valery Veronica, [place] 909 [place], [place] 459265 Physician Paraffiner Dermatology 07/21/22 Brea Quinn APRN SECURITY ASSESSOR 500 [place], [place] 9[address]95 Nurse Practitioner Dermatology 09/21/22 Brea Quinn APRN SECURITY ASSESSOR 6401 [place], [place] 288522 Assigned Surgical Provider 10/09/22 [place] [address] [facility] [facility] 300 [place], [place] 026507 Assigned Musculoskeletal Provider 10/09/22 Alfonso Renteria MD 5775 [facility] 200 [place], [place] 291116 Assigned Neuroscience Provider 04/02/23 Radha Lomeli APRN SECURITY ASSESSOR [address] [place] 2493100 [place] 043325 Assigned Heart and Vascular Provider 05/28/23 Jelena David OD 3305 [facility] [place] [address] MD Ophthalmology 06/15/23 Pao Joseph, RN Personal Advocate & Liaison (PAL) Nurse 08/01/23 Esha Grimm PA-C [address] [place] [address] Assigned PCP 07/16/23 Valery Veronica PA-C [address] [place] [address] 206085 Physician Paraffiner Dermatology 09/19/23 Rey Tay MD [address] [place] [address] 871115 Gastroenterology 09/20/23 Rocky Zepeda DO [address] [place] [address] [phone] Physician Gastroenterology 09/20/23 documented as of this encounter
--- OUTSIDE RECORDS SUMMARY | 2023-10-28 16:36 | XMS_ITS | Encounter Summary ---
Author Name Unknown Organization [place] Address [address] [place] [address] Care Team Providers Care Power Line Installer Name Role Phone ThangKendrickDiana T [facility] Unavailable Rain Galaviz-C Unavailable Tavia Wyatt MD Unavailable Unavailable Erica Farrell APRN ELECTROMECHANICAL ASSEMBLER Unavailable Rich Barrett MD Unavailable Neil Kent MD Unavailable Diana Desir [facility] Unavailable [phone] Livan Sharif MD Unavailable Catherine Cm MD Unavailable + Valery Veronica-C Unavailable [phone] Brea Quinn CASINO OPERATIONS SUPERVISOR ELECTROMECHANICAL ASSEMBLER Unavailable Brea Quinn CASINO OPERATIONS SUPERVISOR ELECTROMECHANICAL ASSEMBLER Unavailable Jose Francisco Johnson MD Unavailable Alfonso Renteria MD Unavailable + [phone] Esha Grimm PA-C Primary Care Provider [phone] Radha Lomeli CASINO OPERATIONS SUPERVISOR ELECTROMECHANICAL ASSEMBLER Unavailable Jelena David OD Unavailable Pao Joseph RN Unavailable Unavailable Esha Grimm PA-C Unavailable [phone] Reason for Visit * Auth/Cert (Routine) Specialty Diagnoses / Procedures Referred By Contparviz t Referred To Contact Gastroenterology Diagnoses Bloating Dysphagia, unspecified type Bloating [R14.0] Dysphagia, unspecified type [R13.10] Procedures FL UGI ENDOSCOPY DIAG W OR W/O BRUSH/WASH Esophagoscopy, gastroscopy, duodenoscopy (EGD), combined Endoscopy [address] [address] Referral ID Status Reason Start Date Expiration Date Visits Re quested Visits Authorized [id number] 1 1 Encounter Details Date Type Department Care Team (Late st Contact Info) Description 09/12/2023 1:15 PM INFORMATION TECHNOLOGY ACCOUNT MANAGER - 09/12/2023 1:45 PM INFORMATION TECHNOLOGY ACCOUNT MANAGER Surgery [facility] Endoscopy [address] [address] Tyshawn Sprague MD [address] [place] [address] Esophagoscopy, gastroscopy, duodenoscopy (EGD), combined Surgery [...] How often do you attend chur or sikhism services? 1 to 4 times per year [...] Answer Date Recorded PHQ-2 Score 0 06/20/2023 [facility] of Occupat ional [...] exercise at this level? 30 min 03/10/2023 Alexander Depression Scale Answer Date Recorded Alexander Depression Score 5 01/14/2021 Last EPDS Self [...] Comments Blood Pressure 116/71 09/12/2023 1:40 PM INFORMATION TECHNOLOGY ACCOUNT MANAGER Pulse 69 09/12/2023 1:45 PM INFORMATION TECHNOLOGY ACCOUNT MANAGER Temperature - - Respiratory Rate 23 09/12/2023 1:45 PM INFORMATION TECHNOLOGY ACCOUNT MANAGER Oxygen Saturation 97% 09/12/2023 1:45 PM INFORMATION TECHNOLOGY ACCOUNT MANAGER Inhaled Oxygen Concentration - - Weight - [...] 09/12/2023 1:07 PM CST Kim Adam Johnson [id number] female 23 year old Reason for procedure/surgery: [...] Surgeon: Galo Burrell MD; Location: HEART CARDIAC PROCEDURAL NURSE ESOPHAGOSCOPY, GASTROSCOPY, DUODENOSCOPY (EGD), COMBINED N/A 06/26/2021 [...] Tyshawn Sprague MD 09/12/2023 PCP: Esha Grimm RMATION TECHNOLOGY ACCOUNT MANAGER documented in this encounter Plan of Treatment Upcoming Encounters Date Type Department Care Team (Late st Contact Info) Description 11/01/2023 8:00 AM CDT Appointment [facility] Imaging [address] [place] [address] See Claudio PA-C [address] [place] [address] 11/03/2023 8:00 AM CDT Office Visit [address] [phone] Valery Veronica PA-C [address] [place] [address] 11/29/2023 8:00 AM CDT Office Visit [facility] [address] [place] [phone] Esha Grimm PA-C [id number] [place] [phone] 12/19/2023 11:30 AM CDT Hospital Encounter [address] [phone] Rocky Zepeda DO 500 [place] [address] 12/19/2023 11:30 AM CDT - 12/19/2023 12:00 PM CDT Surgery [address] [phone] Rocky Zepeda DO 500 [place] [address] Esophagoscopy, gastroscopy, duodenoscopy (EGD), combined 01/02/2024 8:00 AM CDT Office Visit [facility] [address] [place] [address] See Claudio PA-C [address] [place] [address] Kelli Perez MD [address] [place] [address] 037784 Scheduled Procedures Name Priority Associated Diagnoses Date/Ti me ESOPHAGOGASTRODUODENOSCOPY Eosinophilic esophagitis Esophageal dysphagia 12/19/2023 11:30 AM CDT documented as of this encounter Procedures Procedure Name Priority Date/Time Associated Diagnosis Comments SURGICAL PATHOLOGY EXAM Routine 09/12/2023 1:41 PM INFORMATION TECHNOLOGY ACCOUNT MANAGER ESOPHAGOGASTRODUODE NOSCOPY, WITH BIOPSY 09/12/2023 1:10 PM INFORMATION TECHNOLOGY ACCOUNT MANAGER Bloating Dysphagia, unspecified type UPPER GI ENDOSCOPY Routine 09/12/2023 1: 02 PM INFORMATION TECHNOLOGY ACCOUNT MANAGER documented in this encounter Results * Surgical Pathology Exam (09/12/2023 1:41 PM INFORMATION TECHNOLOGY ACCOUNT MANAGER) Case Report Surgical Pathology Report ? Case: [id number] ? Authorizing Provider: ??Tyshawn Sprague MD ?Collected: ? 09/12/2023 01:41 PM ? Ordering Location: ? [facility] ?Received: ?09/12/2023 03:09 PM ? [facility] ? Pathologist: ? Lázaro Jordan MD ? Specimens: ?? A) - Small Intestine, Duodenum, gastric evaluate for H. pylori ? B) - Esophagus, Distal, evaluate for eosinophilic esophagitis ? C) - Esophagus, Proximal, evaluate for eosinophilic esophagitis ? 09/14/2023 7:16 AM [facility] Final Diagnosis A(1). Stomach, [...] for dysplasia or malignancy 09/14/2023 7:16 AM [facility] Comment Prominent intra-epithelial eosinophilia (approximately 40 eosinophils per high-power field in the distal esophagus, and 25 eosinophils per high-power field in the proximal esophagus) is identified. In the appropriate clinical and endoscopic setting, findings are compatible with eosinophilic esophagitis. 09/14/2023 7:16 AM [facility] Clinical Information Procedure: Esophagoscopy, gastroscopy, duodenoscopy (EGD), combined Pre-op Diagnosis: Bloating [R14.0] Dysphagia, unspecified type [R13.10] Post-op Diagnosis: R14.0 - Bloating [ICD-10-CM] R13.10 - Dysphagia, unspecified type [ICD-10-CM] 09/14/2023 7:16 AM [facility] Gross Description A(1). Small Intestine, [...] (Margret David Biopsy Tech) 09/14/2023 7:16 AM [facility] Microscopic Description Microscopic examination was performed. 09/14/2023 7:16 AM [facility] Performing Labs The technical component of this testing was completed at [facility] 09/14/2023 7:16 AM [facility] Case Images 09/14/2023 7:16 AM [facility] Biopsy DUODENAL STRUCTURE / Unknown 09/12/2023 1:41 PM INFORMATION TECHNOLOGY ACCOUNT MANAGER 09/12/2023 3:09 PM [facility] Specimen from unspecified body site obtained by biopsy (specimen) STRUCTURE OF LOWER THIRD OF ESOPHAGUS / Unknown 09/12/2023 1:42 PM INFORMATION TECHNOLOGY ACCOUNT MANAGER 09/12/2023 3:09 PM INFORMATION TECHNOLOGY ACCOUNT MANAGER Specimen from unspecified body site obtained by biopsy (specimen) STRUCTURE OF UPPER THIRD OF ESOPHAGUS / Unknown 09/12/2023 1:44 PM INFORMATION TECHNOLOGY ACCOUNT MANAGER 09/12/2023 3:09 PM INFORMATION TECHNOLOGY ACCOUNT MANAGER Tyshawn BAKER - [facility] Lab [address] Lab (1st floor, no room number) [place] [address], [place] [phone] LABORATORY [facility] Lab [address] 1st floor, Room 20B [place] [address], [place] [phone] * UPPER GI ENDOSCOPY (09/12/2023 1:02 PM INFORMATION TECHNOLOGY ACCOUNT MANAGER) Upper GI Endoscopy [facility] [address] ??[id number] ___ Patient Name: Kim Johnson ?Procedure Date: 09/12/2023 1:02 PM ? Date of : 2000 ? Admit Type: Outpatient Age: 23 ? Room: [place] [address] Note Status: Finalized ?Attending MD: TYSHAWN SPRAGUE MD, Instrument Name: [id number] Gastroscope ___ Procedure: ?Upper GI endoscopy Indications: ?Follow-up of gastro-esophageal reflux disease, ?Unexplained chest pain Providers: ?TYSHAWN SPRAGUE MD, Jess Bucio RN Referring : ? SEE ZHONGBONS Medicines: ?Midazolam 4 mg IV, Fentanyl 100 [...] Procedure Code(s): ? --- Professional --- ? 19615, Esophagogastroduode noscopy, flexible, transoral; with biopsy, ? single or multiple Diagnosis Code(s): ? --- Professional --- ? K22.89, Other specified disease of esophagus ? K44.9, Diaphragmatic hernia without obstruction or gangrene ? K29.70, Gastritis, unspecified, without bleeding ? K21.9, Gastro-esophageal reflux disease without esophagitis ? R07.9, Chest pain, unspecified CPT copyright 2021 [employer]. All rights reserved. The codes documented in this report are preliminary and upon bank vault custodian review may be revised to meet current [...] 1:36:53 PM RADIOLOGY RESULTS 09/12/2023 1:02 PM INFORMATION TECHNOLOGY ACCOUNT MANAGER See Claudio PA-C PROCEDURES RADIOLOGY RESULTS documented in this encounter Visit Diagnoses Diagnosis Bloating Flatulence, eructation, and gas pain Dysphagia, unspecified type Eosinophilic esophagitis Esophageal dysphagia Dysphagia, pharyngoesophageal phase documented in this encounter Administered Medications Inactive Administered Medications - up to 3 most recent administrations Medication Order MAR Action Action Date Dose Rate Site fentaNYL (PF) (SUBLIMAZE) injection Intravenous, PRN, Administer over 3-5 Minutes, Starting on Tue09/12/23 at 1326, Intra-procedure $Given 09/12/2023 1:26 PM INFORMATION TECHNOLOGY ACCOUNT MANAGER 100 mcg midazolam (VERSED) injection Intravenous, Administer over 2 Minutes, PRN, Starting on Tue09/12/23 at 1326, Intra-procedure $Given 09/12/2023 1:28 PM INFORMATION TECHNOLOGY ACCOUNT MANAGER 2 mg $Given 09/12/2023 1:26 PM INFORMATION TECHNOLOGY ACCOUNT MANAGER 2 mg documented in this encounter Active and Recently Administered Medications Times are shown in INFORMATION TECHNOLOGY ACCOUNT MANAGER. PRN Medication Order 09/10/2023 09/11/2023 09/12/2023 fentaNYL [...] Score: 4 06/20/20 23 8:40 AM INFORMATION TECHNOLOGY ACCOUNT MANAGER documented as of this encounter Care Teams Power Line Installer Relationship Specialty Start Date End Date Esha Grimm PA-C [address] [place] [address] PCP - General Family Medicine 05/04/23 Diana Desir, [facility] [address] [place] [address] Pharmacist Pharmacist 04/17/21 Rain Galaviz PA-C [address] [place] [address] [address] [address] Physician Phlebotomy Lab Assistant Dermatology 04/28/21 Tavia Wyatt MD [address] [place] [address] [address] [address] Dermatology 07/14/21 Erica Farrell APRN ELECTROMECHANICAL ASSEMBLER [address] [phone] [address] 303295 Nurse Practitioner Cardiovascular Disease 09/09/21 Rich Barrett MD 516 [facility] 9A [place], [place] 223505 Physician Ophthalmology 01/21/22 Neil Kent MD 500 [place], [place] 517325 Dermatology 02/24/22 Diana Desir, [facility] [address] [place], [place] 256096 Assigned [place] Pharmacist 04/07/22 Livan Sharif MD [address] [facility] [place], [place] 800825 Cardiovascular Disease 05/14/22 Catherine Cm MD 6405 [facility] Sylvia [address] 778435 Cardiovascular Disease 07/21/22 Valery Veronica, PA-C [address] [place] [address] Physician Phlebotomy Lab Assistant Dermatology 07/21/22 Brea Quinn APRN ELECTROMECHANICAL ASSEMBLER 500 [place], [place] 910965 Nurse Practitioner Dermatology 09/21/22 Brea Quinn APRN ELECTROMECHANICAL ASSEMBLER 6401 [facility] [place] 617952 Assigned Surgical Provider 10/09/22 [place] [address] [place] [address] Assigned Musculoskeletal Provider 10/09/22 Alfonso Renteria MD [address] [facility] 200 [place], [place] 426436 Assigned Neuroscience Provider 04/02/23 Radha Lomeli APRN ELECTROMECHANICAL ASSEMBLER [address] 247945 Assigned Heart and Vascular Provider 05/28/23 Jelena David OD 3305 [facility] [address] [place] [id number] Ophthalmology 06/15/23 Pao Joseph, RN Personal Advocate & Liaison (PAL) Nurse 08/01/23 Esha Grimm, PA-C [address] [place] [phone] Assigned PCP 07/16/23 documented as of this encounter
--- OUTSIDE RECORDS SUMMARY | 2023-10-28 16:36 | XMS_ITS | Encounter Summary ---
Author Name Unknown Organization [place] Address [address] [place] [address] Care Team Providers Care Sr Account Executive Name Role Phone ThangKendrickDiana T [facility] Unavailable [phone] Rain Galaviz-C Unavailable Tavia Wyatt MD Unavailable Unavailable Erica Farrell APRN ACT ENGLISH TUTOR Unavailable Rich Barrett MD Unavailable Neil Kent MD Unavailable Diana Desir [facility] Unavailable [phone] Livan Sharif MD Unavailable Catherine mC MD Unavailable + Valery Veronica-C Unavailable [phone] Brea Quinn ALUMINUM POOL INSTALLER ACT ENGLISH TUTOR Unavailable Brea Quinn ALUMINUM POOL INSTALLER ACT ENGLISH TUTOR Unavailable Jose Francisco Johnson MD Unavailable Alfonso Renteria MD Unavailable + [phone] Esha Grimm PA-C Primary Care Provider [phone] Radha Lomeli ALUMINUM POOL INSTALLER ACT ENGLISH TUTOR Unavailable FrankieJelena OD Unavailable Pao Joseph RN Unavailable Unavailable Esha Grimm PA-C Unavailable [phone] Valery Veronica PA-C Unavailable [phone] Rey Tay MD Unavailable Duane Rockyanne STEVENS Unavailable Philip Dumont MD Unavailable [phone] Encounter Details Date Type Department Care Team (Late st Contact Info) Description 09/08/2023 MyC Medical Advice [facility] Clinic [address] [place] [address] Mary Kelsey Social History Tobacco [...] How often do you attend chur or sabianist services? 1 to 4 times per year [...] [facility] - Occupational Stress Questionnaire Answer [...] exercise at this level? 30 min 03/10/2023 [place] Depression Scale Answer Date Recorded [place] Depression Score 5 01/14/2021 Last EPDS Self [...] Info) Description 11/01/2023 8:00 AM CDT Appointment [facility] Imaging [address] [place] [address] Lauren Claudio PA-C [address] [place], [place] [phone] 11/03/2023 8:00 AM CDT Office Visit [address] [phone] Valery Veronica PA-C [address] [place] [address] 11/29/2023 8:00 AM CDT Office Visit [address] [phone] Esha Grimm PA-C [address] [place] [address] 12/19/2023 11:30 AM CDT Hospital Encounter [facility] 909 [facility] 5th [place] [phone] Rocky Zepeda, [address] [place] [address] 12/19/2023 11:30 AM CDT - 12/19/2023 12:00 PM CDT Surgery [facility] 909 [facility] [address] 5th [place] [phone] Rocky Zepeda, DO 500 [place], [place] 599755 Esophagoscopy, gastroscopy, duodenoscopy (EGD), combined 01/02/2024 8:00 AM CDT Office Visit [facility] [address] [place] [phone] Lauren Claudio PA-C [address] [place], [place] [phone] Kelli Perez MD [address] 765814 Scheduled Procedures Name Priority Associated Diagnoses Date/Ti nv ESOPHAGOGASTRODUODENOSCOPY Eosinophilic esophagitis Esophageal dysphagia 12/19/2023 11:30 AM CDT documented as of this encounter Visit Diagnoses Not on filedocumented in this encounter Additional Health Concerns Assessment Noted Time PHQ-9 Depression Total Score: 4 06/20/20 23 8:40 AM DISABILITY COORDINATOR documented as of this encounter Care Teams Sr Account Executive Relationship Specialty Start Date End Date Esha Grimm PA-C [address] [place] [phone] PCP - General Family Medicine 05/04/23 Diana Desir, [facility] [address] [place] [address] Pharmacist Pharmacist 04/17/21 Rain Galaviz PA-C [address] [place] [address] [address] [facility] [place] [id number] Physician Homeworker Dermatology 04/28/21 Tavia Wyatt MD [address] [place] [address] DR RAZO [facility] [place] [address] Dermatology 07/14/21 Erica Farrell APRN ACT ENGLISH TUTOR [address] [place], [place] 929735 Nurse Practitioner Cardiovascular Disease 09/09/21 Rich Barrett MD 516 [facility] 9A [place] [address] Physician Ophthalmology 01/21/22 Neil Kent MD 500 [place], [place] 272875 Dermatology 02/24/22 [facility] 3033 [place], [place] 800506 Assigned MTM Pharmacist 04/07/22 Livan Sharif MD [address] [place] [address] Cardiovascular Disease 05/14/22 Catherine Cm MD [address] [facility]00 [place] 841885 Cardiovascular Disease 07/21/22 Valery Veronica, PA-C [address] [place] [address] 525635 Physician Homeworker Dermatology 07/21/22 Brea Quinn APRN ACT ENGLISH TUTOR 500 [place] [address] Nurse Practitioner Dermatology 09/21/22 Brea Quinn APRN ACT ENGLISH TUTOR 6401 [facility] PATCOUNTS INCLUDE [address] [facility] [address] Assigned Surgical Provider 10/09/22 [place] [address] [address] [facility] 300 [place] [address] Assigned Musculoskeletal Provider 10/09/22 Alfonso Renteria MD 5775 [facility] 200 [place], [place] 728556 Assigned Neuroscience Provider 04/02/23 Radha Lomeli APRN ACT ENGLISH TUTOR [address] 8747200 [place] [address] Assigned Heart and Vascular Provider 05/28/23 Jelena David OD [address] [facility] [place] [address] Ophthalmology 06/15/23 Pao Joseph, VJ Personal Advocate & Liaison (PAL) Nurse 08/01/23 Esha Grimm PA-C [address] [place] [phone] Assigned PCP 07/16/23 Valery Veronica PA-C 909 [place] [address] Physician Homeworker Dermatology 09/19/23 Rey Tay MD [address] [place] [address] MD Gastroenterology 09/20/23 Rocky Zepeda DO [address] [place] [address] Physician Gastroenterology 09/20/23 Philip Dumont MD [address] [place] [address] Physician Ophthalmology 09/22/23 documented as of this encounter
--- OUTSIDE RECORDS SUMMARY | 2023-10-28 16:37 | XMS_ITS | Encounter Summary ---
Author Name Unknown Organization [place] Address [address] [place] [address] Care Team Providers Care Band Sawmill Operator Name Role Phone ThangKendrickDiana T [facility] Unavailable [phone] Rain Galaviz-C Unavailable Tavia Wyatt MD Unavailable Unavailable Erica Farrell APRN SPECIAL PROGRAMS DIRECTOR Unavailable Rich Barrett MD Unavailable Neil Kent MD Unavailable Diana Desir [facility] Unavailable [phone] Livan Sharif MD Unavailable Catherine Cm MD Unavailable + Valery Veronica-C Unavailable [phone] Brea Quinn EMERGENCY MANAGEMENT PROGRAM SPECIALIST SPECIAL PROGRAMS DIRECTOR Unavailable Brea Quinn EMERGENCY MANAGEMENT PROGRAM SPECIALIST SPECIAL PROGRAMS DIRECTOR Unavailable Jose Francisco Johnson MD Unavailable Alfonso Renteria MD Unavailable + [phone] Esha Grimm PA-C Primary Care Provider [phone] Radha Lomeli EMERGENCY MANAGEMENT PROGRAM SPECIALIST SPECIAL PROGRAMS DIRECTOR Unavailable FrankieJelena OD Unavailable Pao Joseph RN Unavailable Unavailable Esha Grimm PA-C Unavailable [phone] Encounter Details Date Type Department Care [...] often do you attend [facility] or religion services? 1 to 4 times per year 03/10/2023 Do you belong to any clubs o r organizations such as uatsdin groups, unions, fraternal or athletic groups, [...] Answer Date Recorded PHQ-2 Score 0 06/20/2023 [facility] of Occupat ional Health - Occupational Stress [...] exercise at this level? 30 min 03/10/2023 [place] Depression Scale Answer Date Recorded [place] Depression Score 5 01/14/2021 Last EPDS Self [...] Appointment [facility] [address] [place] [address] Lauren Claudio PA-C [address] [place] [address] 11/03/2023 8:00 AM CDT Office Visit [address] [phone] Valery Veronica PA-C 909 [place] [address] 11/29/2023 8:00 AM CDT Office Visit [facility] [address] [place] [phone] Esha Grimm PA-C [address] [place] [address] 12/19/2023 11:30 AM CDT Hospital Encounter [address] [phone] Rocky Zepeda DO 500 [place], [place] 772705 12/19/2023 11:30 AM CDT - 12/19/2023 12:00 PM CDT Surgery [address] [phone] Rocky Zepeda DO 500 [place], [place] 572685 Esophagoscopy, gastroscopy, duodenoscopy (EGD), combined 01/02/2024 8:00 AM CDT Office Visit [facility] [address] [phone] Lauren Claudio PA-C [address] [place], [place] [phone] Kelli Perez MD [address] [place], [place] [address] Scheduled Procedures Name Priority Associated Diagnoses Date/Ti nd ESOPHAGOGASTRODUODENOSCOPY Eosinophilic esophagitis Esophageal dysphagia 12/19/2023 11:30 AM CDT documented as of this encounter Visit Diagnoses Not on filedocumented in this encounter Additional Health Concerns Assessment Noted Time PHQ-9 Depression Total Score: 4 06/20/20 23 8:40 AM COMPOSITION BOARD PRESS OPERATOR documented as of this encounter Care Teams Band Sawmill Operator Relationship Specialty Start Date End Date Esha Grimm PA-C [address] [place] [phone] PCP - General Family Medicine 05/04/23 Diana Desir, [facility] [address] [place] [place], [place] 6[address] Pharmacist Pharmacist 04/17/21 Rain Galaviz PA-C [address] [place] [address] [address] [address] Physician Pasta Press Operator Dermatology 04/28/21 Tavia Wyatt MD [address] [place] [address] [address] [address] Dermatology 07/14/21 Erica Farrell APRN SPECIAL PROGRAMS DIRECTOR 6405 [facility] [address] [phone] Nurse Practitioner Cardiovascular Disease 09/09/21 Rich Barrett MD 516 [facility] 9A [place], [place] 9232[address] Physician Ophthalmology 01/21/22 Neil Kent MD 500 [place], [place] 467625 Dermatology 02/24/22 [facility] 30[address] [place], [place] 468076 Assigned MTM Pharmacist 04/07/22 Livan Sharif MD 6405 [facility], [facility] [address] [place], [place] 557[address] Cardiovascular Disease 05/14/22 Catherine Cm MD [address] 0394600 [place], [place] [address] Cardiovascular Disease 07/21/22 Valery Veronica, PAUcheC 909 [place], [place] 434[address] Physician Pasta Press Operator Dermatology 07/21/22 Brea Quinn APRN SPECIAL PROGRAMS DIRECTOR 500 [place] [address] Nurse Practitioner Dermatology 09/21/22 Brea Quinn APRN SPECIAL PROGRAMS DIRECTOR [address] [place] [address] [place] [address] Assigned Surgical Provider 10/09/22 [place] [address] [address] [place] [address] Assigned Musculoskeletal Provider 10/09/22 Alfonso Renteria MD [address] 200 [place], [place] 338046 Assigned Neuroscience Provider 04/02/23 Radha Lomeli APRN SPECIAL PROGRAMS DIRECTOR [address] [place] [address] Assigned Heart and Vascular Provider 05/28/23 Jelena David OD [address] [facility] [place] [address] Ophthalmology 06/15/23 Pao Joseph, RN Personal Advocate & Liaison (PAL) Nurse 08/01/23 Esha Grimm, PA-C [address] [place] [phone] Assigned PCP 07/16/23 documented as of this encounter
--- OUTSIDE RECORDS SUMMARY | 2023-10-28 16:37 | XMS_ITS | Encounter Summary ---
Author Name Unknown Organization [place] Address [address] [place] [address] Care Team Providers Care Regenerator Operator Name Role Phone ThangKendrickDiana T [facility] Unavailable Rain Galaviz-C Unavailable Tavia Wyatt MD Unavailable Unavailable Erica Farrell APRN CHANGE OF ADDRESS CLERK Unavailable Rich Barrett MD Unavailable Neil Kent MD Unavailable Diana Desir [facility] Unavailable [phone] Livan Sharif MD Unavailable Catherine Cm MD Unavailable + Valery Vernoica-C Unavailable [phone] Brea Quinn SENIOR LEAD JAVA DEVELOPER CHANGE OF ADDRESS CLERK Unavailable Brea Quinn SENIOR LEAD JAVA DEVELOPER CHANGE OF ADDRESS CLERK Unavailable Jose Francisco Johnson MD Unavailable Alfonso Renteria MD Unavailable + [phone] Esha Grimm PA-C Primary Care Provider [phone] Radha Lomeli SENIOR LEAD JAVA DEVELOPER CHANGE OF ADDRESS CLERK Unavailable Jelena David OD Unavailable Pao Joseph RN Unavailable Unavailable Esha Grimm PA-C Unavailable [phone] Reason for Visit * Reason Onset Date Comments Prior Auth - Medication 09/02/2023 tretinoi n (RETIN-A) 0.05 % external cream - EPA DENIED Encounter Details Date Type Department Care Team (Late st Contact Info) Description 09/02/2023 Telephone [facility] [address] [place] [address] Esha Grimm PA-C [address] [place] [address] Prior Auth - Medication (tretinoin [...] week 03/10/2023 How often do you attend [facility] or [facility] services? 1 to 4 times [...] Answer Date Recorded PHQ-2 Score 0 06/20/2023 [facility] - Occupational [...] exercise at this level? 30 min 03/10/2023 Aroda Depression Scale Answer Date Recorded Aroda Depression Score 5 01/14/2021 Last EPDS Self [...] Maryjane Mccallum RN - 09/02/2023 10:09 AM VARIETY PERFORMER Alfa Balbuena PA-C Please see CARI kraus Thank you Maryjane Mccallum, Registered Nurse [facility] ETY PERFORMER * Telephone Encounter - Jess Denson - 09/02/2023 10:05 AM CST Images from the original note were not included. PRIOR AUTHORIZATION DENIED Medication: TRETINOIN 0.05 % EX CREA Insurance Company: [employer] [phone] Denial Date: 09/02/2023 Denial Reason(s): Appeal Information: Patient Notified: No ETY PERFORMER documented in this encounter Plan of Treatment Upcoming Encounters Date Type Department Care Team (Late st Contact Info) Description 11/01/2023 8:00 AM CDT Appointment [facility] Imaging [address] [place] Nguyen [phone] Lauren Claudio, PAUcheC [address] [place], [place] [phone] 11/03/2023 8:00 AM CDT Office Visit [address] [address] Valery Veronica PA-C [address] [place] [address] 11/29/2023 8:00 AM CDT Office Visit [address] [phone] Esha Grimm PA-C [id number] [place] [address] 12/19/2023 11:30 AM CDT Hospital Encounter [address] [phone] Rocky Zepeda DO [address] [place], [place] [address] 12/19/2023 11:30 AM CDT - 12/19/2023 12:00 PM CDT Surgery [address] [phone] Rocky Zepeda DO [address] [place], [place] [phone] Esophagoscopy, gastroscopy, duodenoscopy (EGD), combined 01/02/2024 8:00 AM CDT Office Visit [facility] Sleep [address] [phone] Lauren Claudio PA-C [address] [place] [address] Kelli Perez MD [address] [place] [address] [phone] Scheduled Procedures Name Priority Associated Diagnoses Date/Ti ak ESOPHAGOGASTRODUODENOSCOPY Eosinophilic esophagitis Esophageal dysphagia 12/19/2023 11:30 AM CDT documented as of this encounter Visit Diagnoses Not on filedocumented in this encounter Additional Health Concerns Assessment Noted Time PHQ-9 Depression Total Score: 4 06/20/20 23 8:40 AM VARIETY PERFORMER documented as of this encounter Care Teams Regenerator Operator Relationship Specialty Start Date End Date Esha Grimm PA-C [address] [place] [phone] PCP - General Family Medicine 05/04/23 Diana Desir, [facility] [address] [place], [place] [address] Pharmacist Pharmacist 04/17/21 Rain Galaviz PA-C [address] [place] [address] [address] [place] [address] Physician Mechanical Press Operator Dermatology 04/28/21 Tavia Wyatt MD [address] [place] [address] [address] [facility] [place] [address] Dermatology 07/14/21 Erica Farrell APRN CHANGE OF ADDRESS CLERK [address] [facility] [address] [place] [address] Nurse Practitioner Cardiovascular Disease 09/09/21 Rich Barrett MD 516 [facility] [address] [place], [place] [address] Physician Ophthalmology 01/21/22 Neil Kent MD 500 [place], [place] 129195 Dermatology 02/24/22 Diana Desir, [facility] [address]33 [place] [address] Assigned MTM Pharmacist 04/07/22 Livan Sharif MD [address] [facility] [address] [facility] [address] [place] [address] Cardiovascular Disease 05/14/22 Catherine Cm MD 6405 [facility] [address] [place] [address] Cardiovascular Disease 07/21/22 Valery Veronica, PAUcheC [address] [place] [address] Physician Mechanical Press Operator Dermatology 07/21/22 Brea Quinn APRN CHANGE OF ADDRESS CLERK [address] [place] [address] Nurse Practitioner Dermatology 09/21/22 Brea Quinn APRN CHANGE OF ADDRESS CLERK [address] [place] [address] Assigned Surgical Provider 10/09/22 [place] [address] [address] Assigned Musculoskeletal Provider 10/09/22 Alfonso Renteria MD 5775 [facility] 200 [place] [address] Assigned Neuroscience Provider 04/02/23 Radha Lomeli APRN CHANGE OF ADDRESS CLERK [address] [place] [address] Assigned Heart and Vascular Provider 05/28/23 Jelena David OD 3305 [facility] [place] [address] MD Ophthalmology 06/15/23 Pao Joseph, VJ Personal Advocate & Liaison (PAL) Nurse 08/01/23 Esha Grimm, PAUcheC [address] [place] [phone] Assigned PCP 07/16/23 documented as of this encounter
--- OUTSIDE RECORDS SUMMARY | 2023-10-28 16:37 | XMS_ITS | Encounter Summary ---
Author Name Unknown Organization [place] Address [address] [place] [address] Care Team Providers Care Tile Mechanic Helper Name Role Phone ThangKendrickDiana T [facility] Unavailable Rain Galaviz-C Unavailable [phone] Tavia Wyatt MD Unavailable Unavailable Erica Farrell APRN SERVICE WORKER Unavailable Rich Barrett MD Unavailable Neil Kent MD Unavailable Diana Desir [facility] Unavailable [phone] Livan Sharif MD Unavailable Catherine Cm MD Unavailable + Valery Veronica-C Unavailable [phone] Brea Quinn INSIDE WIRER SERVICE WORKER Unavailable Brea Quinn INSIDE WIRER SERVICE WORKER Unavailable Jose Francisco Johnson MD Unavailable Alfonso Renteria MD Unavailable + [phone] Esha Grimm PA-C Primary Care Provider [phone] Radha Lomeli INSIDE WIRER SERVICE WORKER Unavailable [phone] Frankie Jelena Radha OD Unavailable [phone] Pao Joseph RN Unavailable Unavailable Esha Grimm PA-C Unavailable [phone] Valery Veronica PA-C Unavailable [phone] Rey Tay MD Unavailable Duane Rockyanne STEVENS Unavailable Philip Dumont MD Unavailable [phone] Encounter Details Date Type Department Care Team (Late st Contact Info) Description 09/01/2023 [facility] Medical Advice [address] [address] Diana Desir, [facility] [address] [place] [address] Social History Tobacco Use Types [...] 06/20/2023 [facility] - Occupational Stress [...] exercise at this level? 30 min 03/10/2023 [place] Depression Scale Answer Date Recorded [place] Depression Score 5 01/14/2021 Last EPDS Self [...] Info) Description 11/01/2023 8:00 AM CDT Appointment [facility] Imaging [address] [place] [address] Lauren Claudio PA-C [address] [place], [place] [phone] 11/03/2023 8:00 AM CDT Office Visit [address] [phone] Valery Veronica PA-C [address] [place] [address] 11/29/2023 8:00 AM CDT Office Visit [facility] [address] [place] [phone] Esha Grimm PA-C [address] [place] [phone] 12/19/2023 11:30 AM CDT Hospital Encounter [facility] 909 [facility] 5th [place] [phone] Rocky Zepeda DO 500 [place] [address] 12/19/2023 11:30 AM CDT - 12/19/2023 12:00 PM CDT Surgery [facility] [address] [facility] [address] 5th [place] [phone] Rocky Zepeda, DO 500 [facility] [place], [place] [address] Esophagoscopy, gastroscopy, duodenoscopy (EGD), combined 01/02/2024 8:00 AM CDT Office Visit [facility] [address] [place] [phone] Lauren Claudio PA-C [address] [place], [place] [phone] Kelli Perez MD [address] [place], [place] [address]E [facility] 106 [place], [place] [address] Scheduled Procedures Name Priority Associated Diagnoses Date/Ti nj ESOPHAGOGASTRODUODENOSCOPY Eosinophilic esophagitis Esophageal dysphagia 12/19/2023 11:30 AM CDT documented as of this encounter Visit Diagnoses Not on filedocumented in this encounter Additional Health Concerns Assessment Noted Time PHQ-9 Depression Total Score: 4 06/20/20 23 8:40 AM FIELD SERVICE SPECIALIST documented as of this encounter Care Teams Tile Mechanic Helper Relationship Specialty Start Date End Date Esha Grimm PA-C [address] [place] [phone] PCP - General Family Medicine 05/04/23 Diana Desir [facility] [address] [place] [address] Pharmacist Pharmacist 04/17/21 Rain Galaviz PA-C [address] [place] [address] [address] [place] [address] Physician Odd Job Laborer Dermatology 04/28/21 Tavia Wyatt MD [address] [place] [address] [place] [address] Dermatology 07/14/21 Erica Farrell APRN SERVICE WORKER [address] [place] [address] Nurse Practitioner Cardiovascular Disease 09/09/21 Rich Barrett MD [address] [place] [address] 736135 Physician Ophthalmology 01/21/22 Neil Kent MD [address] [place] [address] 242665 Dermatology 02/24/22 [facility] [address] [place] [address] 9[address]186 Assigned [place] Pharmacist 04/07/22 Livan Sharif MD [address] [place] [address] Cardiovascular Disease 05/14/22 Catherine Cm MD [address] [facility] [place] [address] Cardiovascular Disease 07/21/22 Valery Veronica, PA-C [address] [place] [address] 898635 Physician Odd Job Laborer Dermatology 07/21/22 Brea Quinn APRN SERVICE WORKER 500 [place], [place] 8[address] Nurse Practitioner Dermatology 09/21/22 Brea Quinn APRN SERVICE WORKER 6401 [place], [place] 178002 Assigned Surgical Provider 10/09/22 [place] [address] [place] [address] 840637 Assigned Musculoskeletal Provider 10/09/22 Alfonso Renteria MD 5775 [facility] 200 [place], [place] [address] Assigned Neuroscience Provider 04/02/23 Radha Lomeli APRN SERVICE WORKER [address] 489[address] Assigned Heart and Vascular Provider 05/28/23 Jelena David OD [address] [facility] [address] [place] [id number] Ophthalmology 06/15/23 Pao Joseph, RN Personal Advocate & Liaison (PAL) Nurse 08/01/23 Esha Grimm PA-C [address] [place] [phone] Assigned PCP 07/16/23 Valery Veronica PA-C 9 [place] [address] Physician Odd Job Laborer Dermatology 09/19/23 Rey Tay MD 9 [place] [address] Gastroenterology 09/20/23 Rocky Zepeda DO [address] [place] [address] 828585 Physician Gastroenterology 09/20/23 Philip Dumont MD [address] [place] [address] 142105 Physician Ophthalmology 09/22/23 documented as of this encounter
--- OUTSIDE RECORDS SUMMARY | 2023-10-28 16:37 | XMS_ITS | Encounter Summary ---
Author Name Unknown Organization [place] Address [address] [place] [address] Care Team Providers Care Cnc Operator Name Role Phone ThangKendrickDiana T [facility] Unavailable [phone] Rain Galaviz-C Unavailable [phone] Tavia Wyatt MD Unavailable Unavailable Erica Farrell APRN TRAFFIC COUNTER Unavailable Rich Barrett MD Unavailable Neil Kent MD Unavailable Diana Desir [facility] Unavailable [phone] Livan Sharif MD Unavailable Catherine Cm MD Unavailable + Valery Veronica-C Unavailable [phone] Brea Quinn ROLL EDGE MACHINE OPERATOR TRAFFIC COUNTER Unavailable Brea Quinn ROLL EDGE MACHINE OPERATOR TRAFFIC COUNTER Unavailable Jose Francisco Johnson MD Unavailable Alfonso Renteria MD Unavailable + [phone] José Miguel Pritchard PA-C Primary Care Provider [phone] Radha Lomeli ROLL EDGE MACHINE OPERATOR TRAFFIC COUNTER Unavailable Jelena David OD Unavailable Pao Joseph RN Unavailable Unavailable José Miguel Pritchard PA-C Unavailable [phone] Reason for Referral * Medication Prior Authorization - Denied Specialty Diagnoses / Procedures Referred By Contparviz t Referred To Contact Diagnoses Acne, unspecified acne type José Miguel Pritchard PA-C [address] [place] [address] Referral ID Status Reason Start Date Expiration Date Visits Re quested Visits Authorized [id number] Denied 1 1 AGE COOKER Reason for Visit * Reason Comments Anxiety Follow Up Encounter Details Date Type Department Care Team (Late st Contact Info) Description 09/01/2023 11:30 AM SAUSAGE COOKER Virtual Visit [address] [address] José Miguel Pritchard PA-C [address] [place] [address] Breast tenderness (Primary Dx); Anxiety; [...] week 03/10/2023 How often do you attend [facility] or confucianist services? 1 to 4 times per year [...] Answer Date Recorded PHQ-2 Score 0 06/20/2023 [facility] [place] of Occupat ional Health - Occupational Stress [...] exercise at this level? 30 min 03/10/2023 Bi[place] Depression Scale Answer Date Recorded [place] Depression Score 5 01/14/2021 Last EPDS Self [...] be resent by: Text to cell phone: [phone] Will anyone else be joining your video [...] location): On-site Platform used for Video Visit: [facility] Signed Electronically by: José Miguel Pritchard PA-C AGE COOKER documented in this encounter Miscellaneous Notes * Addendum Note - José Miguel Pritchard PA-C - 09/01/2023 11:30 AM CSTAddended by: JOSÉ MIGUEL PRITCHARD on: 09/02/2023 09:28 AM Modules accepted: Orders AGE COOKER documented in this encounter Plan of Treatment Upcoming Encounters Date Type Department Care Team (Late st Contact Info) Description 11/01/2023 8:00 AM CDT Appointment [facility] Imaging [address] [address] Lauren Claudio PA-C [address] [place] [address] 11/03/2023 8:00 AM CDT Office Visit [address] [phone] Valery Veronica PA-C [address] [place] [address] 11/29/2023 8:00 AM CDT Office Visit [facility] [address] [place] [phone] José Miguel Pritchard PA-C [address] [place] [phone] 12/19/2023 11:30 AM CDT Hospital Encounter [address] [phone] Rocky Zepeda DO 500 [place], [place] [address] 12/19/2023 11:30 AM CDT - 12/19/2023 12:00 PM CDT Surgery [address] [phone] Rocky Zepeda DO 500 [place] [address] Esophagoscopy, gastroscopy, duodenoscopy (EGD), combined 01/02/2024 8:00 AM CDT Office Visit [facility] [place] [address] [place] [phone] Lauren Claudio PA-C [address] [place], [place] [phone] Kelli Perez MD [address] [place] [address] Scheduled Procedures Name Priority Associated Diagnoses Date/Ti mt ESOPHAGOGASTRODUODENOSCOPY Eosinophilic esophagitis Esophageal dysphagia 12/19/2023 11:30 AM CDT documented as of this encounter Procedures Procedure Name Priority Date/Time Associated Diagnosis Comments CHLAMYDIA TRACHOMATIS/NEISSERI A GONORRHOEAE BY PCR Routine 09/01/2023 2:31 PM SAUSAGE COOKER Screen for STD (sexually transmitted disease) WET PREPARATION Routine 09/01/2023 2:31 PM SAUSAGE COOKER Vaginal discharge Screen for STD (sexually transmitted disease) documented in this encounter Results * Chlamydia & Gonorrhea by PCR, [facility] - Clinic Collect (09/01/2023 2:31 PM SAUSAGE COOKER) Chlamydia Trachomatis Negative Negative 09/02/2023 12:32 PM SAUSAGE COOKER [facility] Comment: Negative for C. trachomatis rRNA by grinding wheel dresser mediated amplification. A negative result by grinding wheel dresser mediated amplification does not preclude the presence of infection because results are dependent on proper and adequate collection, absence of inhibitors and sufficient rRNA to be detected. Neisseria gonorrhoeae Negative Negative 09/02/2023 12:32 PM SAUSAGE COOKER [facility] Comment:Negative for N. gono rrhoeae rRNA by grinding wheel dresser mediated amplification. A negative result by grinding wheel dresser mediated amplification does not preclude the presence of C. trachomatis infection because results are dependent on proper and adequate collection, absence of inhibitors and sufficient rRNA to be detected. Swab VAGINAL STRUCTURE / Unknown Non-blood Collection / Unknown 09/01/2023 2:31 PM SAUSAGE COOKER 09/01/2023 2:32 PM SAUSAGE COOKER José Miguel Pritchard PA-C LAB - MICRO GENERAL ORDERABLES [facility] Inf. Diseases Diag. Lab 500 [facility], [address] [place] [address], [facility] [phone] * (ABNORMAL) Wet prep - Clinic Collect (09/01/2023 2:31 PM SAUSAGE COOKER) Trichomonas Absent Absent REINA 09/01/2023 2:52 PM SAUSAGE COOKER CR LAB[facility]ORY Yeast Absent Absent REINA 09/01/2023 2:52 PM SAUSAGE COOKER [facility] Clue Cells Present(A) Absent REINA 09/01/2023 2:52 PM SAUSAGE COOKER [facility] WBCs/high power field 1+(A) None REINA 09/01/2023 2:52 PM SAUSAGE COOKER [facility] Swab VAGINAL STRUCTURE / Unknown Non-blood Collection / Unknown 09/01/2023 2:31 PM SAUSAGE COOKER 09/01/2023 2:31 PM SAUSAGE COOKER José Miguel Pritchard PA-C LAB - MICRO GENERAL ORDERABLES CR LABORATORY [facility] Lab [address] [facility] (no room number, 1st floor of [facility] [place] [address], [facility] [phone] * Treponema Abs w Reflex to RPR and Titer (09/01/2023 2:25 PM SAUSAGE COOKER) Treponema Antibody Total Nonreactive Nonreactive 09/01/2023 6:05 PM SAUSAGE COOKER [facility]PROT/EN DO Blood BLOOD SPECIMEN / Unknown Venipuncture / Unknown 09/01/2023 2:25 PM SAUSAGE COOKER 09/01/2023 2:25 PM SAUSAGE COOKER José Miguel Pritchard PA-C LAB - BLOOD ORDERABL ES [facility] CORE/PROT/ENDO [facility] Core/Prot/Endo 500 [facility] [address], [address] [place] [address], [facility] [phone] * HIV Antigen Antibody Combo (09/01/2023 2:25 PM SAUSAGE COOKER) HIV Antigen Antibody Combo Nonreactive Nonreactive 09/01/2023 5:50 PM SAUSAGE COOKER [facility] Comment:Negative HIV-1/-2 an tigen and antibody screening test results usually indicate the absence of HIV-1 and HIV-2 infection. However, such negative results do not rule-out acute HIV infection. If acute HIV-1 or HIV-2 infection is suspected, detection of HIV-1 or HIV-2 RNA is recommended. Blood BLOOD SPECIMEN / Unknown Venipuncture / Unknown 09/01/2023 2:25 PM SAUSAGE COOKER 09/01/2023 2:25 PM SAUSAGE COOKER José Miguel Pritchard PA-C LAB - BLOOD ORDERABL ES LABORATORY [facility] [place] Lab 500 [facility], [address] [place] [address], [facility] [phone] * Progesterone (09/01/2023 2:25 PM SAUSAGE COOKER) [facility] Progesterone 0.3 ng/mL 09/01/2023 7:34 PM SAUSAGE COOKER LABORATORY Comment: Healthy Postmenopausal Women Postmenopause: <0.1-0.126 [...] Unknown Venipuncture / Unknown 09/01/2023 2:25 PM SAUSAGE COOKER 09/01/2023 2:25 PM SAUSAGE COOKER José Miguel Pritchard PA-C LAB - BLOOD ORDERABL ES LABORATORY [facility] [place] [facility] 500 [facility], [address] [place] [address], [facility] [phone] * Estradiol (09/01/2023 2:25 PM SAUSAGE COOKER) Estradiol 14 pg/mL 09/01/2023 7:34 PM SAUSAGE COOKER [facility] Comment: Healthy Men: 11.3-43.2 pg/mL Healthy Postmenopausal Women: Postmenopause: <5-138 pg/mL Healthy Women: 1st trimester: 154-3243 pg/mL 2nd trimester: 1561-72006 pg/mL 3rd trimester: 8525->24592 pg/mL Healthy Women Cycle Phase: Follicular: 30.9-90.4 pg/mL Ovulation: 60.4-533 pg/mL Luteal: 60.4-232 pg/mL Healthy Women Cycle Sub-Phase: Early Follicular: 20.5-62.8 pg/mL Intermediate Follicular: 26-79.8 pg/mL Late Follicular: 49.5-233 pg/mL Ovulation: 60.4-602 pg/mL Early Luteal: 51.1-179 pg/mL Intermediate Luteal: 66.5-305 pg/mL Late Luteal: 30.2-222 pg/mL Blood BLOOD SPECIMEN / Unknown Venipuncture / Unknown 09/01/2023 2:25 PM SAUSAGE COOKER 09/01/2023 2:25 PM SAUSAGE COOKER José Miguel Pritchard PA-C LAB - BLOOD ORDERABL ES U LABORATORY [facility] [place] [facility] 500 [facility], [address] [phone] [phone] * Prolactin (09/01/2023 2:25 PM SAUSAGE COOKER) Prolactin 6 5 - 23 ng/mL 09/01/2023 7:34 PM SAUSAGE COOKER [facility] Blood BLOOD SPECIMEN / Unknown Venipuncture / Unknown 09/01/2023 2:25 PM SAUSAGE COOKER 09/01/2023 2:25 PM SAUSAGE COOKER José Miguel Pritchard PA-C LAB - BLOOD ORDERABL ES U LABORATORY [facility] [place] [facility] 500 [facility], [address] [place] [address], [facility] [phone] * Luteinizing Hormone (09/01/2023 2:25 PM SAUSAGE COOKER) Luteinizing Hormone 4.4 mIU/mL 09/01/2023 7:34 PM SAUSAGE COOKER [facility] Comment: FEMALE: Age 0 - 6 mo: ??<0.1-8.2 mIU/mL 6 mo - 11 years: <0.1-1.3 mIU/mL 11 - 14 years: <0.1-10 mIU/mL 14 - 19 years: 0.4-25 mIU/mL 19 years and older: Follicular Phase: 2.4-12.6 mIU/mL Ovulation Phase: 14.0-95.6 mIU/mL Luteal Phase: 1.0-11.4 ??mIU/mL Postmenopausal: 7.7-58.5 mIU/mL Blood BLOOD SPECIMEN / Unknown Venipuncture / Unknown 09/01/2023 2:25 PM SAUSAGE COOKER 09/01/2023 2:25 PM SAUSAGE COOKER José Miguel Pritchard PA-C LAB - BLOOD ORDERABL ES [facility] [place] [facility] 500 [facility], [address] [place] [address], [facility] [phone] * Follicle stimulating hormone (09/01/2023 2:25 PM SAUSAGE COOKER) FSH 4.5 mIU/mL 09/01/2023 7:34 PM SAUSAGE COOKER [facility] Comment: 19 years and older: Follicular phase: 3.5-12.5 mIU/mL Ovulation phase: 4.7-21.5 mIU/mL Luteal phase: 1.7-7.7 mIU/mL Postmenopause: 25.8-134.8 mIU/mL Blood BLOOD SPECIMEN / Unknown Venipuncture / Unknown 09/01/2023 2:25 PM SAUSAGE COOKER 09/01/2023 2:25 PM SAUSAGE COOKER José Miguel Pritchard PA-C LAB - BLOOD ORDERABL ES [facility] [place] [facility] 500 [facility], [address] [place] [address], [facility] [phone] documented in this encounter Visit Diagnoses Diagnosis Breast tenderness- Primary Mastodynia Anxiety Anxiety state, unspecified Acne, unspecified acne type Vaginal discharge Leukorrhea, not specified as infective Bacterial vaginosis Vaginitis and vulvovaginitis, unspecified Screen for STD (sexually transmitted disease) Screening examination for venereal disease Eosinophilic esophagitis Esophageal dysphagia Dysphagia, pharyngoesophageal phase documented in this encounter Additional Health Concerns Assessment Noted Time PHQ-9 Depression Total Score: 4 06/20/20 23 8:40 AM SAUSAGE COOKER documented as of this encounter Care Teams Cnc Operator Relationship Specialty Start Date End Date José Miguel Pritchard PA-C [address] [place] [address] PCP - General Family Medicine 05/04/23 Diana Desir, [facility] [address] [place] [address] Pharmacist Pharmacist 04/17/21 Rain Galaviz PA-C [address] [place] [address] [address] [address] Physician Compliance Reviewer Dermatology 04/28/21 Tavia Wyatt MD [address] [place] [address] [address] [address] Dermatology 07/14/21 Erica Farrell APRN TRAFFIC COUNTER [address] [facility] [address] [place] [address] Nurse Practitioner Cardiovascular Disease 09/09/21 Rich Barrett MD [address] [facility] [address] [place], [place] 27[address] Physician Ophthalmology 01/21/22 Neil Kent MD 500 [place], [place] 127115 Dermatology 02/24/22 Diana Desir, [facility] [address] [place] [address] Assigned [place] Pharmacist 04/07/22 Livan Sharif MD [address] [facility] [address] [place], [place] [address] Cardiovascular Disease 05/14/22 Catherine Cm MD [address] [facility] [address] [facility] [place], [place] 9[address] Cardiovascular Disease 07/21/22 Valery Veronica, PA-C [address] [place], [place] 195155 Physician Compliance Reviewer Dermatology 07/21/22 Brea Quinn APRN TRAFFIC COUNTER 500 [place] [address] Nurse Practitioner Dermatology 09/21/22 Brea Quinn APRN TRAFFIC COUNTER [address] [place] [address] Assigned Surgical Provider 10/09/22 [place] [address] [place] [address] Assigned Musculoskeletal Provider 10/09/22 Alfonso Renteria MD [address] [facility] 200 [place] [address] Assigned Neuroscience Provider 04/02/23 Radha Lomeli APRN TRAFFIC COUNTER [address] [facility] [address] [place] [address] Assigned Heart and Vascular Provider 05/28/23 Jelena David OD [address] [facility] [place] [place] [address] Ophthalmology 06/15/23 Pao Joseph, VJ Personal Advocate & Liaison (PAL) Nurse 08/01/23 José Miguel Pritchard PAUcheC [address] [place] [phone] Assigned PCP 07/16/23 documented as of this encounter
--- OUTSIDE RECORDS SUMMARY | 2023-10-28 16:37 | XMS_ITS | Encounter Summary ---
Author Name Unknown Organization [place] Address [address] [place] [address] Care Team Providers Care Dry Wall Finisher Name Role Phone ThangKendrickDiana T [facility] Unavailable Rain Galaviz-C Unavailable Tavia Wyatt MD Unavailable Unavailable Erica Farrell APRN PATIENT FINANCIAL SPECIALIST Unavailable Rich Barrett MD Unavailable Neil Kent MD Unavailable Diana Desir [facility] Unavailable [phone] Livan Sharif MD Unavailable Catherine Cm MD Unavailable + Valery Veronica-C Unavailable [phone] Brea Quinn MANAGER TRANSITION PATIENT FINANCIAL SPECIALIST Unavailable Brea Quinn MANAGER TRANSITION PATIENT FINANCIAL SPECIALIST Unavailable Jose Francisco Johnson MD Unavailable Alfonso Renteria MD Unavailable + [phone] Esha Grimm PA-C Primary Care Provider Radha Lomeli MANAGER TRANSITION PATIENT FINANCIAL SPECIALIST Unavailable Jelena David OD Unavailable Pao Joseph RN Unavailable Unavailable sEha Grimm PA-C Unavailable [phone] Encounter Details Date Type Department Care Team (Late st Contact Info) Description 09/06/2023 MyC Medical Advice [facility] [address] [place] [address] Esha Grimm PA-C [id number] [place] [phone] Social History Tobacco Use Types Packs/Day [...] How often do you attend chur or adventism services? 1 to 4 times [...] Answer Date Recorded PHQ-2 Score 0 06/20/2023 [facility] [place] of Occupat ional Health - Occupational Stress [...] exercise at this level? 30 min 03/10/2023 [place] Depression Scale Answer Date Recorded [place] Depression Score 5 01/14/2021 Last EPDS Self [...] Bassem Arnett RN - 09/07/2023 8:29 AM GREEN CHAIN PULLER Please see [employer] message in reference to lab question. Routed to PCP, Please review and advise. Thank you, Chuckie Arnett RN 09/07/2023 at 8:29 AM N CHAIN PULLER * Telephone Encounter - Maryjane Mccallum RN - 09/07/2023 7:44 AM GREEN CHAIN PULLER Routing to RN conrad Mccallum Registered Nurse, CONRAD (Patient Advocate Liaison) [facility] [phone] N CHAIN PULLER documented in this encounter Plan of Treatment Upcoming Encounters Date Type Department Care Team (Late st Contact Info) Description 11/01/2023 8:[address] [facility] [address] [place] [address] Lauren Claudio PA-C [address] [place] [phone] 11/03/2023 8:00 AM CDT Office Visit [address] [phone] Valery Veronica PA-C [address]09 [place] [address] 11/29/2023 8:00 AM CDT Office Visit [facility] [address] [place] [phone] Esha Grimm PA-C [address] [place] [phone] 12/19/2023 11:30 AM CDT Hospital Encounter [address] [place] [phone] Rocky Zepeda DO 500 [place] [address] 12/19/2023 11:30 AM CDT - 12/19/2023 12:00 PM CDT Surgery [address] [phone] Rocky Zepeda DO 500 [place], [place] [phone] Esophagoscopy, gastroscopy, duodenoscopy (EGD), combined 01/02/2024 8:00 AM CDT Office Visit [address] [phone] Lauren Claudio PA-C [address] [place], [place] [phone] Kelli Perez MD [address] [place] [address] [phone] Scheduled Procedures Name Priority Associated Diagnoses Date/Ti tx ESOPHAGOGASTRODUODENOSCOPY Eosinophilic esophagitis Esophageal dysphagia 12/19/2023 11:30 AM CDT documented as of this encounter Visit Diagnoses Not on filedocumented in this encounter Additional Health Concerns Assessment Noted Time PHQ-9 Depression Total Score: 4 06/20/20 23 8:40 AM GREEN CHAIN PULLER documented as of this encounter Care Teams Dry Wall Finisher Relationship Specialty Start Date End Date Esha Grimm PA-C [address] [facility] [place] [address] PCP - General Family Medicine 05/04/23 Diana Desir, [facility] [address] [place] [address] Pharmacist Pharmacist 04/17/21 Rain Galaviz PA-C [address] [place] [address] [address] [address] Physician Ela Teacher Dermatology 04/28/21 Tavia Wyatt MD [address] [place] [address] [address] [place] [address] Dermatology 07/14/21 Erica Farrell APRN PATIENT FINANCIAL SPECIALIST [address] [place] [address] Nurse Practitioner Cardiovascular Disease 09/09/21 Rich Barrett MD [address] 162865 Physician Ophthalmology 01/21/22 Neil Kent MD [address] [place] [address] 511475 Dermatology 02/24/22 Diana Desir, [facility] [address] [place] [address] Assigned MTM Pharmacist 04/07/22 Livan Sharif MD [address] [place] [address] Cardiovascular Disease 05/14/22 Catherine Cm MD [address] [facility] [address] [place] [address] Cardiovascular Disease 07/21/22 Valery Veronica, PA-C [address] [place] [address] Physician Ela Teacher Dermatology 07/21/22 Brea Quinn APRN PATIENT FINANCIAL SPECIALIST [address] [place] [address] Nurse Practitioner Dermatology 09/21/22 Brea Quinn APRN PATIENT FINANCIAL SPECIALIST [address]01 [place] [address] Assigned Surgical Provider 10/09/22 [place] [address] [place] [address] Assigned Musculoskeletal Provider 10/09/22 Alfonso Renteria MD [address] [facility] 200 [place] [address] Assigned Neuroscience Provider 04/02/23 Radha Lomeli APRN PATIENT FINANCIAL SPECIALIST [address] [facility] [address] [place] [address] Assigned Heart and Vascular Provider 05/28/23 Jelena David OD [address] [facility] [place] [address] Ophthalmology 06/15/23 Pao Joseph, VJ Personal Advocate & Liaison (PAL) Nurse 08/01/23 Esha Grimm, PAUcheC [address] [place] [address] Assigned PCP 07/16/23 documented as of this encounter
--- OUTSIDE RECORDS SUMMARY | 2023-10-28 16:37 | XMS_ITS | Encounter Summary ---
Author Name Unknown Organization [facility] Address [address] [place] [address] Care Team Providers Care Bleacher [employer] Name Role Phone ThangKendrickDiana T [facility] Unavailable Rain Galaviz-C Unavailable Tavia Wyatt MD Unavailable Unavailable Erica Farrell APRN ASSOCIATE PROFESSOR OF PATHOLOGY Unavailable Rich Barrett MD Unavailable Neil Kent MD Unavailable Diana Desir [facility] Unavailable [phone] Livan Sharif MD Unavailable Catherine Cm MD Unavailable + Valery Veronica-C Unavailable [phone] Brea Quinn HOME IMPROVEMENT INSTALLER ASSOCIATE PROFESSOR OF PATHOLOGY Unavailable Brea Quinn HOME IMPROVEMENT INSTALLER ASSOCIATE PROFESSOR OF PATHOLOGY Unavailable Jose Francisco Johnson MD Unavailable Alfonso Renteria MD Unavailable + [phone] Esha Grimm PA-C Primary Care Provider [phone] Radha Lomeli HOME IMPROVEMENT INSTALLER ASSOCIATE PROFESSOR OF PATHOLOGY Unavailable Jelena David OD Unavailable Pao Joseph RN Unavailable Unavailable Esha Grimm PA-C Unavailable [phone] Reason for Visit * Reason Onset Date Comments Outreach 09/02/2023 Encounter Details Date Type Department Care Team (Late st Contact Info) Description 09/02/2023 MyC Medical Advice [facility] [address] [place] [phone] Esha Grimm PA-C [id number] [place] [phone] Outreach Social History Tobacco Use Types [...] often do you attend chur ch or orthodox services? 1 to 4 times [...] Answer Date Recorded PHQ-2 Score 0 06/20/2023 [place] [facility] Occupat ionnh Health - Occupational Stress Questionnaire Answer Date [...] exercise at this level? 30 min 03/10/2023 [place] Depression Scale Answer Date Recorded [place] Depression Score 5 01/14/2021 Last EPDS Self [...] PM CST Esha Grimm PA-C- See pt's [facility] message. Please review and advise. Routed to PCP Pao Marcos RN PAL (Patient Advocate Liaison) [facility] documented in this encounter Plan of Treatment Upcoming Encounters Date Type Department Care Team (Late st Contact Info) Description 11/01/2023 8:00 AM CDT Appointment [facility] [address] [facility] [place] [place] [phone] Lauren Claudio PA-C [address] [place] [address] 11/03/2023 8:00 AM CDT Office Visit [address] [phone] Valery Veronica PA-C 909 [place] [address] 11/29/2023 8:00 AM CDT Office Visit [facility] [address] [place] [phone] Esha Grimm PA-C [address] [place] [phone] 12/19/2023 11:30 AM CDT Hospital Encounter [facility] 909 [facility] 5th [place] [phone] Rocky Zepeda DO 500 [place], [place] [address] 12/19/2023 11:30 AM CDT - 12/19/2023 12:00 PM CDT Surgery [facility] 909 [facility] 5th [place] [phone] Rocky Zepeda DO 500 [place], [place] [address] Esophagoscopy, gastroscopy, duodenoscopy (EGD), combined 01/02/2024 8:00 AM CDT Office Visit [place] [address] [place] [phone] Lauren Claudio PA-C [address] [place], [place] [phone] Kelli Perez MD [address] [id number] Scheduled Procedures Name Priority Associated Diagnoses Date/Ti nh ESOPHAGOGASTRODUODENOSCOPY Eosinophilic esophagitis Esophageal dysphagia 12/19/2023 11:30 AM CDT documented as of this encounter Visit Diagnoses Not on filedocumented in this encounter Additional Health Concerns Assessment Noted Time PHQ-9 Depression Total Score: 4 06/20/20 23 8:40 AM CORDWAINER documented as of this encounter Care Teams [employer] Relationship Specialty Start Date End Date Esha Grimm PA-C [address] [place] [phone] PCP - General Family Medicine 05/04/23 Diana Desir [facility] 3033 [place] [address] Pharmacist Pharmacist 04/17/21 Rain Galaviz PA-C [address] [place] [address] [address] [place] [address] Physician Neon Sign Servicer Dermatology 04/28/21 Tavia Wyatt MD [address] [place] [address] [address] [facility] [address] Dermatology 07/14/21 Erica Farrell APRN ASSOCIATE PROFESSOR OF PATHOLOGY [address] [place] [address] Nurse Practitioner Cardiovascular Disease 09/09/21 Rich Barrett MD [address] [place] [address] [address] [place], [place] 530165 Physician Ophthalmology 01/21/22 Neil Kent MD [address] [place] [address] 543375 Dermatology 02/24/22 Diana Desir, [facility] [place] [address] Assigned MTM Pharmacist 04/07/22 Livan Sharif MD [address] [place] 497[address] Cardiovascular Disease 05/14/22 Catherine Cm MD [address] [place] 384285 Cardiovascular Disease 07/21/22 Valery Veronica PA-C 909 [place], [place] 694665 Physician Neon Sign Servicer Dermatology 07/21/22 Brea Quinn APRN ASSOCIATE PROFESSOR OF PATHOLOGY 500 [place], [place] 783515 Nurse Practitioner Dermatology 09/21/22 Brea Quinn APRN ASSOCIATE PROFESSOR OF PATHOLOGY [address] [place] [address] 066712 Assigned Surgical Provider 10/09/22 [place] [address] [address] Assigned Musculoskeletal Provider 10/09/22 Alfonso Renteria MD 5775 [facility] 200 [place], [place] 253236 Assigned Neuroscience Provider 04/02/23 Radha Lomeli APRN ASSOCIATE PROFESSOR OF PATHOLOGY 6405 [facility] [address] [place], [place] 0784[address] Assigned Heart and Vascular Provider 05/28/23 Jelena David OD [address] [facility] [address] [place] [id number] Ophthalmology 06/15/23 Pao Joseph, RN Personal Advocate & Liaison (PAL) Nurse 08/01/23 Esha Grimm PA-C [address] [place] [address] Assigned PCP 07/16/23 documented as of this encounter
--- OUTSIDE RECORDS SUMMARY | 2023-10-28 16:37 | XMS_ITS | Encounter Summary ---
Author Name Unknown Organization [facility] Address [address] [place] [address] Care Team Providers Care Senior Sustainability Consultant Name Role Phone ThangKendrickDiana T [facility] Unavailable [phone] Rain Galaviz-C Unavailable Tavia Wyatt MD Unavailable Unavailable Erica Farrell APRN SENIOR MORTGAGE UNDERWRITER Unavailable Rich Barrett MD Unavailable Neil Kent MD Unavailable Diana Desir [facility] Unavailable [phone] Livan Sharif MD Unavailable Catherine Cm MD Unavailable + Valery Veronica-C Unavailable [phone] Brea Quinn ADMINISTRATIVE REPRESENTATIVE SENIOR MORTGAGE UNDERWRITER Unavailable Brea Qiunn ADMINISTRATIVE REPRESENTATIVE SENIOR MORTGAGE UNDERWRITER Unavailable Jose Francisco Johnson MD Unavailable Alfonso Renteria MD Unavailable + [phone] Esha Grimm PA-C Primary Care Provider [phone] Radha Lomeli ADMINISTRATIVE REPRESENTATIVE SENIOR MORTGAGE UNDERWRITER Unavailable Jelena David Radha OD Unavailable [phone] Pao Joseph RN Unavailable Unavailable Esha GrimmC Unavailable [phone] Encounter Details Date Type Department Care Team (Late st Contact Info) Description 09/01/2023 2:00 PM [facility] Lab [address] [address] Breast tenderness; Screen for STD [...] How often do you attend chur or caodaism services? 1 to 4 times [...] PHQ-2 Score 0 06/20/2023 [facility] [place] of Occupat ional Health - Occupational Stress [...] exercise at this level? 30 min 03/10/2023 [place] Depression Scale Answer Date Recorded [place] Depression Score 5 01/14/2021 Last EPDS Self [...] Info) Description 11/01/2023 8:00 AM CDT Appointment [facility] [address] [place] [address] Lauren Claudio PA-C [address] [place], [place] [phone] 11/03/2023 8:00 AM CDT Office Visit [address] [phone] Valery Veronica PA-C 909 [place] [address] 11/29/2023 8:00 AM CDT Office Visit [facility] [address] [place] [phone] Esha Grimm PA-C [address] [place] [phone] 12/19/2023 11:30 AM CDT Hospital Encounter [address] [phone] Rocky Zepeda DO 500 [place] [address] 12/19/2023 11:30 AM CDT - 12/19/2023 12:00 PM CDT Surgery [address] [phone] Rocky Zepeda DO 500 [place] [address] Esophagoscopy, gastroscopy, duodenoscopy (EGD), combined 01/02/2024 8:00 AM CDT Office Visit [facility] [address] [place] [address] Lauren Claudio PA-C [address] [place] [address] Kelli Perez MD [address] [place] [address] 106 [place] [address] Scheduled Procedures Name Priority Associated Diagnoses Date/Ti me ESOPHAGOGASTRODUODENOSCOPY Eosinophilic esophagitis Esophageal dysphagia 12/19/2023 11:30 AM CDT documented as of this encounter Procedures Procedure Name Priority Date/Time Associated Diagnosis Comments TESTOSTERONE FREE AND TOTAL Routine 09/01/2023 2:25 PM FOREIGN DIPLOMAT Breast tenderness SEX HORMONE BINDING GLOBULIN Routine 09/01/2023 2:25 PM FOREIGN DIPLOMAT Breast tenderness HIV ANTIGEN ANTIBODY COMBO Routine 09/01/2023 2:25 PM FOREIGN DIPLOMAT Screen for STD (sexually transmitted disease) TREPONEMA ABS W REFLEX TO RPR AND TITER Routine 09/01/2023 2:25 PM FOREIGN DIPLOMAT Screen for STD (sexually transmitted disease) TESTOSTERONE FREE AND TOTAL Routine 09/01/2023 2:25 PM FOREIGN DIPLOMAT Breast tenderness PROLACTIN Routine 09/01/2023 2:25 PM FOREIGN DIPLOMAT Breast tenderness PROGESTERONE Routine 09/01/2023 2:25 PM FOREIGN DIPLOMAT Breast tenderness LUTEINIZING HORMONE Routine 09/01/2023 2 :25 PM FOREIGN DIPLOMAT Breast tenderness HCG QUALITATIVE Routine 09/01/2023 2:25 PM FOREIGN DIPLOMAT Breast tenderness FOLLICLE STIMULATING HORMONE Routine 09/01/2023 2:25 PM FOREIGN DIPLOMAT Breast tenderness ESTRADIOL Routine 09/01/2023 2:25 PM FOREIGN DIPLOMAT Breast tenderness documented in this encounter Results * hCG Qualitative (09/01/2023 2:25 PM FOREIGN DIPLOMAT) hCG Serum Qualitative Negative Negative REINA 09/01/2023 5:34 PM FOREIGN DIPLOMAT [facility] Comment:This test is for scr eening purposes. Results should be interpreted along with the clinical picture. Confirmation testing is available if warranted by ordering [id number], HCG Quantitative . Blood BLOOD SPECIMEN / Unknown Venipuncture / Unknown 09/01/2023 2:25 PM FOREIGN DIPLOMAT 09/01/2023 2:25 PM FOREIGN DIPLOMAT Esha Grimm PA-C LAB - BLOOD ORDERABL ES LABORATORY [facility] Core Lab 500 [facility], [address] [address] [phone] * Testosterone Free and Total (09/01/2023 2:25 PM FOREIGN DIPLOMAT) Free Testosterone Calculated 0.18 ng/dL 09/04/2023 6:56 AM FOREIGN DIPLOMAT [facility] Comment: Adult Female Reference Range: 18-30 Years: 0.08-0.74 ng/dL 31-40 Years: 0.13-0.92 ng/dL 41-51 Years: 0.11-0.58 ng/dL Postmenopausal: 0.06-0.38 ng/dL Testosterone Total 10 8 - 60 ng/dL 09/04/2023 6:56 AM FOREIGN DIPLOMAT [facility] Blood BLOOD SPECIMEN / Unknown Venipuncture / Unknown 09/01/2023 2:25 PM FOREIGN DIPLOMAT 09/01/2023 2:25 PM FOREIGN DIPLOMAT Narrative [facility] - 09/04/2023 6:56 AM FOREIGN DIPLOMAT This test was developed and its performance characteristics determined by the [facility], ??Special Chemistry Laboratory. It has not been cleared or approved by the FDA. The laboratory is regulated under CLIA as qualified to perform high-complexity testing. This test is used for clinical purposes. It should not be regarded as investigational or for research. Esha Grimm PA-C LAB - BLOOD ORDERABL ES SPECIAL DRUG/BGEN Special Drug/BGEN 500 [facility], [address] [address], [facility] [phone] * Sex Hormone Binding Globulin (09/01/2023 2:25 PM FOREIGN DIPLOMAT) Sex Hormone Binding Globulin 32 30 - 135 nmol/L 09/01/2023 5:45 PM FOREIGN DIPLOMAT [facility] Blood BLOOD SPECIMEN / Unknown Venipuncture / Unknown 09/01/2023 2:25 PM FOREIGN DIPLOMAT 09/01/2023 2:25 PM FOREIGN DIPLOMAT Esha Grimm PA-C LAB - BLOOD ORDERABL ES Performing Organization Address City/[facility]/ZIP Co de Phone Number U [facility] D Lo Core Lab 500 [facility], [address] [address], [facility] [phone] * Treponema Abs w Reflex to RPR and Titer (09/01/2023 2:25 PM FOREIGN DIPLOMAT) Pathologist [facility] Treponema Antibody Total Nonreactive Nonreactive 09/01/2023 6:05 PM FOREIGN DIPLOMAT SPECIALTY CORE/PROT/EN DO Blood BLOOD SPECIMEN / Unknown Venipuncture / Unknown 09/01/2023 2:25 PM FOREIGN DIPLOMAT 09/01/2023 2:25 PM FOREIGN DIPLOMAT Esha Grimm PA-C LAB - BLOOD ORDERABL ES SPECIALTY CORE/PROT/ENDO Specialty Core/Prot/Endo 500 [facility] [address] Building, [address] [address], [facility] [phone] * HIV Antigen Antibody Combo (09/01/2023 2:25 PM FOREIGN DIPLOMAT) Pathologist [facility] HIV Antigen Antibody Combo Nonreactive Nonreactive 09/01/2023 5:50 PM FOREIGN DIPLOMAT [facility] Comment:Negative HIV-1/-2 an tigen and antibody screening test results usually indicate the absence of HIV-1 and HIV-2 infection. However, such negative results do not rule-out acute HIV infection. If acute HIV-1 or HIV-2 infection is suspected, detection of HIV-1 or HIV-2 RNA is recommended. Blood BLOOD SPECIMEN / Unknown Venipuncture / Unknown 09/01/2023 2:25 PM FOREIGN DIPLOMAT 09/01/2023 2:25 PM FOREIGN DIPLOMAT Esha Grimm PA-C LAB - BLOOD ORDERABL ES Performing Organization Address City/[facility]/ZIP Co de Phone Number [facility] D Lo Core Lab 500 [facility], [address] [phone] [phone] * Progesterone (09/01/2023 2:25 PM FOREIGN DIPLOMAT) [facility] Progesterone 0.3 ng/mL 09/01/2023 7:34 PM FOREIGN DIPLOMAT [facility] Comment: Healthy Postmenopausal Women Postmenopause: [...] Unknown Venipuncture / Unknown 09/01/2023 2:25 PM FOREIGN DIPLOMAT 09/01/2023 2:25 PM FOREIGN DIPLOMAT Esha Grimm PA-C LAB - BLOOD ORDERABL ES LABORATORY [facility] D Lo Core Lab [address] [facility], [address] [address], [facility] [phone] * Estradiol (09/01/2023 2:25 PM FOREIGN DIPLOMAT) Estradiol 14 pg/mL 09/01/2023 7:34 PM FOREIGN DIPLOMAT [facility] Comment: Healthy Men: 11.3-43.2 pg/mL Healthy Postmenopausal Women: Postmenopause: <5-138 pg/mL Healthy Women: 1st trimester: 154-3243 pg/mL 2nd trimester: 1561-66662 pg/mL 3rd trimester: 8525->74340 pg/mL Healthy Women Cycle Phase: Follicular: 30.9-90.4 pg/mL Ovulation: 60.4-533 pg/mL Luteal: 60.4-232 pg/mL Healthy Women Cycle Sub-Phase: Early Follicular: 20.5-62.8 pg/mL Intermediate Follicular: 26-79.8 pg/mL Late Follicular: 49.5-233 pg/mL Ovulation: 60.4-602 pg/mL Early Luteal: 51.1-179 pg/mL Intermediate Luteal: 66.5-305 pg/mL Late Luteal: 30.2-222 pg/mL Blood BLOOD SPECIMEN / Unknown Venipuncture / Unknown 09/01/2023 2:25 PM FOREIGN DIPLOMAT 09/01/2023 2:25 PM FOREIGN DIPLOMAT Esha Grimm PA-C LAB - BLOOD ORDERABL ES LABORATORY [facility] D Lo Core Lab [address] [facility], Room [address] [address], [facility] [phone] * Prolactin (09/01/2023 2:25 PM FOREIGN DIPLOMAT) Prolactin 6 5 - 23 ng/mL 09/01/2023 7:34 PM FOREIGN DIPLOMAT [facility] Blood BLOOD SPECIMEN / Unknown Venipuncture / Unknown 09/01/2023 2:25 PM FOREIGN DIPLOMAT 09/01/2023 2:25 PM FOREIGN DIPLOMAT Esha Grimm PA-C LAB - BLOOD ORDERABL ES [facility] D Lo Core Lab 500 [facility], Room [address] [place] [address], [facility] [phone] * Luteinizing Hormone (09/01/2023 2:25 PM FOREIGN DIPLOMAT) Luteinizing Hormone 4.4 mIU/mL 09/01/2023 7:34 PM FOREIGN DIPLOMAT [facility] Comment: FEMALE: Age 0 - 6 mo: ??<0.1-8.2 mIU/mL 6 mo - 11 years: <0.1-1.3 mIU/mL 11 - 14 years: <0.1-10 mIU/mL 14 - 19 years: 0.4-25 mIU/mL 19 years and older: Follicular Phase: 2.4-12.6 mIU/mL Ovulation Phase: 14.0-95.6 mIU/mL Luteal Phase: 1.0-11.4 ??mIU/mL Postmenopausal: 7.7-58.5 mIU/mL Blood BLOOD SPECIMEN / Unknown Venipuncture / Unknown 09/01/2023 2:25 PM FOREIGN DIPLOMAT 09/01/2023 2:25 PM FOREIGN DIPLOMAT Esha Grimm PA-C LAB - BLOOD ORDERABL ES [facility] D Lo Core Lab 500 [facility], Room [address] [place] [phone], [facility] [phone] * Follicle stimulating hormone (09/01/2023 2:25 PM FOREIGN DIPLOMAT) FSH 4.5 mIU/mL 09/01/2023 7:34 PM FOREIGN DIPLOMAT [facility] Comment: 19 years and older: Follicular phase: 3.5-12.5 mIU/mL Ovulation phase: 4.7-21.5 mIU/mL Luteal phase: 1.7-7.7 mIU/mL Postmenopause: 25.8-134.8 mIU/mL Blood BLOOD SPECIMEN / Unknown Venipuncture / Unknown 09/01/2023 2:25 PM FOREIGN DIPLOMAT 09/01/2023 2:25 PM FOREIGN DIPLOMAT Esha Grimm PA-C LAB - BLOOD ORDERABL ES [facility] D Lo Core Lab 500 [facility], [address] [place] [phone] [phone] documented in this encounter Visit Diagnoses Diagnosis Breast tenderness Mastodynia Screen for STD (sexually transmitted disease) Screening examination for venereal disease Eosinophilic esophagitis Esophageal dysphagia Dysphagia, pharyngoesophageal phase documented in this encounter Additional Health Concerns Assessment Noted Time PHQ-9 Depression Total Score: 4 06/20/20 23 8:40 AM FOREIGN DIPLOMAT documented as of this encounter Care Teams Senior Sustainability Consultant Relationship Specialty Start Date End Date Esha Grimm PA-C [address] [place] [phone] PCP - General Family Medicine 05/04/23 Diana Desir, [facility] [address] [place], [place] [address] Pharmacist Pharmacist 04/17/21 Rain Galaviz PA-C [address] [place] [address] [place] [address] Physician Naturopath Dermatology 04/28/21 Tavia Wyatt MD [address] [place] [address] [place] [address] Dermatology 07/14/21 Erica Farrell APRN SENIOR MORTGAGE UNDERWRITER [address] [facility] [address] [place] [address] Nurse Practitioner Cardiovascular Disease 09/09/21 Rich Barrett MD [address] [facility] [address] [place], [place] 9[address] Physician Ophthalmology 01/21/22 Neil Kent MD 500 [place], [place] 767965 Dermatology 02/24/22 Diana Desir, [facility] [address] [place], [place] 2688[address] Assigned MTM Pharmacist 04/07/22 Livan Sharif MD [address], [facility] [address] [place], [place] 2267[address] Cardiovascular Disease 05/14/22 Catherine Cm MD [address] [place] [phone] [place], [place] 083[address] Cardiovascular Disease 07/21/22 Valery Veronica, PA-C 909 [place], [place] [address]25 Physician Naturopath Dermatology 07/21/22 Brea Quinn APRN SENIOR MORTGAGE UNDERWRITER 500 [place] [address] Nurse Practitioner Dermatology 09/21/22 Brea Quinn APRN SENIOR MORTGAGE UNDERWRITER 6401 [place] [address] Assigned Surgical Provider 10/09/22 [place] [address] [address] [place] [address] Assigned Musculoskeletal Provider 10/09/22 Alfonso Renteria MD [address] [facility] 200 [place] [address] Assigned Neuroscience Provider 04/02/23 Radha Lomeli APRN SENIOR MORTGAGE UNDERWRITER [address] [facility] [address] [place] [address] Assigned Heart and Vascular Provider 05/28/23 Jelena David OD [address] [place] [address] Ophthalmology 06/15/23 Pao Joseph, VJ Personal Advocate & Liaison (PAL) Nurse 08/01/23 Esha Grimm, PA-C [address] [place] [address] Assigned PCP 07/16/23 documented as of this encounter
--- OUTSIDE RECORDS SUMMARY | 2023-10-28 16:37 | XMS_ITS | Encounter Summary ---
Author Name Unknown Organization [place] Address [address] [place] [address] Care Team Providers Care Greeting Card Writer Name Role Phone ThangKendrickDiana T [facility] Unavailable Rain Galaviz-C Unavailable Tavia Wyatt MD Unavailable Unavailable Erica Farrell APRN HAND ETCHER HELPER Unavailable Rich Barrett MD Unavailable Neil Kent MD Unavailable Diana Desir [facility] Unavailable [phone] Livan Sharif MD Unavailable Catherine Cm MD Unavailable + Valery Veronica-C Unavailable [phone] Brea Quinn CIGARETTE VENDOR HAND ETCHER HELPER Unavailable Brea Quinn CIGARETTE VENDOR HAND ETCHER HELPER Unavailable Jose Francisco Johnson MD Unavailable Alfonso Renteria MD Unavailable + [phone] Esha Grimm PA-C Primary Care Provider [phone] Radha Lomeli CIGARETTE VENDOR HAND ETCHER HELPER Unavailable FrankieJelena OD Unavailable [phone] Pao Joseph RN Unavailable Unavailable Esha Grimm PAUcheC Unavailable [phone] Reason for Visit * Reason Comments Chest Pain Encounter Details Date Type Department Care Team (Late st Contact Info) Description 09/07/2023 6:28 PM TOW CAR DRIVER - 09/07/2023 9:49 PM TOW CAR DRIVER Emergency [facility] Emergency Dept [address] [place] [phone] Brea Meyer MD [facility] [address] [place], [place] [address] Chest pain, unspecified type Discharge Disposition: Home [...] often do you attend chur ch or yazidism services? 1 to 4 times [...] Answer Date Recorded PHQ-2 Score 0 06/20/2023 [facility] - Occupational Stress Questionnaire Answer [...] exercise at this level? 30 min 03/10/2023 Roberts Depression Scale Answer Date Recorded Roberts Depression Score 5 01/14/2021 Last EPDS Self [...] Comments Blood Pressure 106/75 09/07/2023 9:48 PM TOW CAR DRIVER Pulse 79 09/07/2023 9:48 PM TOW CAR DRIVER Temperature 36.7 ??C (98 ??F) 09/07/2023 6:18 PM TOW CAR DRIVER Respiratory Rate 18 09/07/2023 9:48 PM TOW CAR DRIVER Oxygen Saturation 100% 09/07/2023 9:48 PM TOW CAR DRIVER Inhaled Oxygen Concentration - - Weight 84.6 kg (186 lb 8.2 oz) 09/07/2023 6:20 P M TOW CAR DRIVER Height 167.6 cm (5' 6) 09/07/2023 6:20 PM TOW CAR DRIVER Body Mass Index 30.1 09/07/2023 6:20 PM TOW CAR DRIVER documented in this encounter Discharge Instructions * Discharge Instructions* Brea Meyer MD - 09/07/2023 9:02 PM TOW CAR DRIVER Please call your GI doctor to see [...] if there is anything that worries you. CAR DRIVER documented in this encounter Medications at Time [...] times daily for 7 days 14 tablet 09/02/2023 09/09/2023 LORazepam (ATIVAN) 0.5 MG tabletIndications:Anx iety Take 1 tablet (0.5 mg) by mouth daily as needed for anxiety 30 tablet 07/28/2023 10/27/2023 omeprazole (PRILOSEC) [address] capsuleIndications:Ep igastric pain Take 1 capsule (40 mg) by mouth daily 90 capsule 3 09/07/2022 09/16/2023 PARoxetine (PAXIL) 40 MG tablet Take 40 mg by mouth every morning 09/21/2023 documented as of this encounter ED [...] WDL WDL Cognitive/Neuro/Behavioral WDL Cognitive/Neuro/Behavioral WDL WDL CAR DRIVER * Brea Meyer MD - 09/07/2023 6:08 PM CST History Chief Complaint: Chest Pain The history is provided by the patient. Kim Johnson is a 23 year old female with history of SVT and an ablation 2 years ago who presentswith chest pain. 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 MS interval 164 ms. QRS duration 86 ms. [...] her omeprazole. Patient will follow-up with her quarter section ironer as well as her GI doctor. Patient [...] Meyer MD Richardson, Elizabeth, MD 09/08/23 0025 CAR DRIVER documented in this encounter Plan of Treatment Upcoming Encounters Date Type Department Care Team (Late st Contact Info) Description 11/01/2023 8:00 AM CDT Appointment [facility] [address] [place] [address] Lauren Claudio PA-C [address] [place] [address] 11/03/2023 8:00 AM CDT Office Visit [facility] [address] [place] [phone] Valery Veronica PA-C [address]09 [place] [address] 11/29/2023 8:00 AM CDT Office Visit [address] [place] [phone] Esha Grimm PA-C [address] [place] [phone] 12/19/2023 11:30 AM CDT Hospital Encounter [address] [place] [phone] Rocky Zepeda, [address] [place], [place] [address] 12/19/2023 11:30 AM CDT - 12/19/2023 12:00 PM CDT Surgery [address] [phone] Rocky Zepeda DO [address] [place], [place] [address] Esophagoscopy, gastroscopy, duodenoscopy (EGD), combined 01/02/2024 8:00 AM CDT Office Visit [address] [phone] Lauren Claudio PA-C [address] [place], [place] [phone] Kelli Perez MD [address] [place] [address]654 Scheduled Procedures Name Priority Associated Diagnoses Date/Ti me ESOPHAGOGASTRODUODENOSCOPY Eosinophilic esophagitis Esophageal dysphagia 12/19/2023 11:30 AM CDT documented as of this encounter Procedures Procedure Name Priority Date/Time Associated Diagnosis Comments TROPONIN T, HIGH SENSITIVITY STAT 09/07/2023 8:49 PM TOW CAR DRIVER EXTRA TUBE STAT 09/07/2023 6:59 PM TOW CAR DRIVER EXTRA PURPLE TOP TUBE STAT 09/07/2023 6:59 PM TOW CAR DRIVER EXTRA RED TOP TUBE STAT 09/07/2023 6: 59 PM TOW CAR DRIVER CBC WITH PLATELETS AND DIFFERENTIAL STAT 09/07/2023 6:59 PM TOW CAR DRIVER TROPONIN T, HIGH SENSITIVITY STAT 09/07/2023 6:59 PM TOW CAR DRIVER CBC WITH PLATELETS & DIFFERENTIAL STAT 09/07/2023 6:59 PM TOW CAR DRIVER BASIC METABOLIC PANEL STAT 09/07/2023 6:59 PM TOW CAR DRIVER EKG 12-LEAD, TRACING ONLY STAT 09/07/2023 6:14 PM TOW CAR DRIVER documented in this encounter Results * Troponin T, High Sensitivity (now) (09/07/2023 8:49 PM TOW CAR DRIVER) [facility] Troponin T, High Sensitivity <6 <=14 ng/L 09/07/2023 9:23 PM TOW CAR DRIVER [facility] Comment: Either a High Sensitivity [...] Unknown Venipuncture / Unknown 09/07/2023 8:49 PM TOW CAR DRIVER 09/07/2023 8:53 PM TOW CAR DRIVER Brea Meyer MD LAB - BLOOD DONYA HERRERA Performing Organization Address City/[facility]/ZIP Co de Phone Number [facility] [address] Lab (1st floor, no room number) [place] [address], [facility] [phone] * Extra Purple Top Tube (09/07/2023 6:59 PM TOW CAR DRIVER) Hold Specimen [facility] [place] [facility] 09/07/2023 8:07 PM TOW CAR DRIVER [facility] Blood STRUCTURE OF LEFT UPPER LIMB / Unknown Venipuncture / Unknown 09/07/2023 6:59 PM TOW CAR DRIVER 09/07/2023 7:05 PM TOW CAR DRIVER Brea Meyer MD LAB - BLOOD DONYA HERRERA Performing Organization Address City/[facility]/ZIP Co de Phone Number [facility] [address] Lab (1st floor, no room number) [place] [address], [facility] [phone] * Extra Red Top Tube (09/07/2023 6:59 PM TOW CAR DRIVER) Hold Specimen [facility] 09/07/2023 8:07 PM TOW CAR DRIVER [facility] Blood STRUCTURE OF LEFT UPPER LIMB / Unknown Venipuncture / Unknown 09/07/2023 6:59 PM TOW CAR DRIVER 09/07/2023 7:05 PM TOW CAR DRIVER Brea Meyer MD LAB - BLOOD DONYA HERRERA Performing Organization Address City/[facility]/ZIP Co de Phone Number [facility] [address] Lab (1st floor, no room number) [place] [address], [facility] [phone] * (ABNORMAL) CBC with platelets and differential (09/07/2023 6:59 PM TOW CAR DRIVER) WBC Count 5.7 4.0 - 11.0 10e3/uL 09/07/2023 7:08 PM TOW CAR DRIVER [facility] RBC Count 5.11 3.80 - 5.20 10e6/uL 09/07/2023 7:08 PM TOW CAR DRIVER [facility] Hemoglobin 13.4 11.7 - 15.7 g/dL 09/07/2023 7:08 PM TOW CAR DRIVER [facility] Hematocrit 41.3 35.0 - 47.0 % 09/07/2023 7:08 PM TOW CAR DRIVER [facility] MCV 81 78 - 100 fL 09/07/2023 7:08 PM TOW CAR DRIVER [facility] MCH 26.2(L) 26.5 - 33.0 pg 09/07/2023 7:08 PM TOW CAR DRIVER [facility] MCHC 32.4 31.5 - 36.5 g/dL 09/07/2023 7:08 PM TOW CAR DRIVER [facility] RDW 12.6 10.0 - 15.0 % 09/07/2023 7:08 PM TOW CAR DRIVER [facility] Platelet Count 233 150 - 450 10e3/uL 09/07/2023 7:08 PM TOW CAR DRIVER [facility] % Neutrophils 43 % 09/07/2023 7:08 PM TOW CAR DRIVER [facility] % Lymphocytes 45 % 09/07/2023 7:08 PM TOW CAR DRIVER [facility] % Monocytes 6 % 09/07/2023 7:08 PM TOW CAR DRIVER [facility] % Eosinophils 6 % 09/07/2023 7:08 PM TOW CAR DRIVER [facility] % Basophils 0 % 09/07/2023 7:08 PM TOW CAR DRIVER [facility] % Immature Granulocytes 0 % 09/07/2023 7:08 PM TOW CAR DRIVER [facility] NRBCs per 100 WBC 0 <1 /100 024 7:08 PM TOW CAR DRIVER [facility] Absolute Neutrophils 2.5 1.6 - 8.3 10e3/uL 09/07/2023 7:08 PM TOW CAR DRIVER [facility] Absolute Lymphocytes 2.5 0.8 - 5.3 10e3/uL 09/07/2023 7:08 PM TOW CAR DRIVER [facility] Absolute Monocytes 0.3 0.0 - 1.3 10e3/uL 09/07/2023 7:08 PM TOW CAR DRIVER [facility] Absolute Eosinophils 0.4 0.0 - 0.7 10e3/uL 09/07/2023 7:08 PM TOW CAR DRIVER [facility] Absolute Basophils 0.0 0.0 - 0.2 10e3/uL 09/07/2023 7:08 PM TOW CAR DRIVER [facility] Absolute Immature Granulocytes 0.0 <=0.4 10e3/uL 09/07/2023 7:08 PM TOW CAR DRIVER [facility] Absolute NRBCs 0.0 10e3/uL 09/07/2023 7:08 PM TOW CAR DRIVER LABORATORY Blood STRUCTURE OF LEFT UPPER LIMB / Unknown Venipuncture / Unknown 09/07/2023 6:59 PM TOW CAR DRIVER 09/07/2023 7:05 PM TOW CAR DRIVER Brea Meyer MD LAB - BLOOD DONYA HERRERA Performing Organization Address [facility]/ZIP Co de Phone Number [facility] [address] Lab (1st floor, no room number) [place] [address], [facility] [phone] * Troponin T, High Sensitivity (09/07/2023 6:59 PM TOW CAR DRIVER) Troponin T, High Sensitivity <6 <=14 ng/L 09/07/2023 7:27 PM TOW CAR DRIVER LABORATORY Comment: Either a High Sensitivity Troponin [...] Unknown Venipuncture / Unknown 09/07/2023 6:59 PM TOW CAR DRIVER 09/07/2023 7:05 PM TOW CAR DRIVER Brea Meyer MD LAB - BLOOD DONYA HERRERA [facility] [address] Lab (1st floor, no room number) [place] [address], [facility] [phone] * Basic metabolic panel (09/07/2023 6:59 PM TOW CAR DRIVER) Sodium 138 135 - 145 mmol/L 09/07/2023 7:27 PM [facility] Comment:Reference intervals for this test were updated on 04/05/2023 to more accurately reflect our healthy population. There may be differences in the flagging of prior results with similar values performed with this method. Interpretation of those prior results can be made in the context of the updated reference intervals. Potassium 3.7 3.4 - 5.3 mmol/L 09/07/2023 7:27 PM [facility] Chloride 100 98 - 107 mmol/L 09/07/2023 7:27 PM [facility] Carbon Dioxide (CO2) 26 22 - 29 mmol/L 09/07/2023 7:27 PM [facility] Anion Gap 12 7 - 15 mmol/L 09/07/2023 7:27 PM [facility] Urea Nitrogen 12.9 6.0 - 20.0 mg/dL 09/07/2023 7:27 PM [facility] Creatinine 0.73 0.51 - 0.95 mg/dL 09/07/2023 7:27 PM [facility] GFR Estimate >90 >60 mL/min/1. 73m2 09/07/2023 7:27 PM [facility] Calcium 9.5 8.6 - 10.0 mg/dL 09/07/2023 7:27 PM [facility] Glucose 90 70 - 99 mg/dL 09/07/2023 7:27 PM [facility] Blood STRUCTURE OF LEFT UPPER LIMB / Unknown Venipuncture / Unknown 09/07/2023 6:59 PM TOW CAR DRIVER 09/07/2023 7:05 PM [facility] Brea Meyer MD LAB - BLOOD DONYA HERRERA LABORATORY [facility] Acute Care Lab [address] Lab (1st floor, no room number) [place] [address], [facility] [phone] * EKG 12 lead (09/07/2023 6:14 PM TOW CAR DRIVER) Systolic Blood Pressure mmHg RADIOLOGY RESULTS Diastolic Blood Pressure mmHg RADIOLOGY RESULTS Ventricular Rate 82 BPM RAD IOLOGY RESULTS Atrial Rate 82 BPM RADIOLOG Y RESULTS MS Interval 164 ms RADIOLOG Y RESULTS QRS Duration 86 ms RADIOLO GY RESULTS QT 382 ms RADIOLOGY RESULTS QTc 446 ms RADIOLOGY RESULTS P [place] 50 degrees RADIOLOGY RESULTS R AXIS 65 degrees RADIOLOGY RESULTS T [place] 47 degrees RADIOLOGY RESULTS Interpretation ECG Sinus rhythm Nonspecific ST abnormality Abnormal ECG When compared with ECG of 19-MAY-2023 09:49, No significant change was found Unconfirmed report - interpretation of this ECG is computer generated - see medical record for final interpretation Confirmed by - EMERGENCY ROOM, PHYSICIAN ([id number]), editor continuity and script NIC LESTER ([id number]) on 09/08/2023 6:52:35 AM RADIOLOGY RESULTS 09/07/2023 6:14 PM TOW CAR DRIVER 09/08/2023 6:52 AM TOW CAR DRIVER Brea Meyer MD ECG ORDERABLES RADIOLOGY RESULTS documented in this encounter Visit Diagnoses Diagnosis Chest pain, unspecified type Eosinophilic esophagitis Esophageal dysphagia Dysphagia, pharyngoesophageal phase documented in this encounter Administered Medications Inactive Administered Medications - up to 3 most recent administrations Medication Order MAR Action Action Date Dose Rate Site alum & mag hydroxide-simethicone (MAALOX) suspension 15 mL 15 mL, Oral, ONCE, On Tue09/07/23 at 2040, For 1 dose, Use for 'GI cocktail'. $Given 09/07/2023 8:44 PM TOW CAR DRIVER 15 mLs aspirin (ASA) tablet 325 mg 325 mg, Oral, ONCE, On Tue09/07/23 at 1840, For 1 dose $Given 09/07/2023 6:52 PM TOW CAR DRIVER 325 mg ondansetron (ZOFRAN ODT) ODT tab 4 mg 4 mg, Oral, ONCE, On Tue09/07/23 at 1850, For 1 dose, With dry hands, peel back foil backing and gently remove tablet. Do not push oral disintegrating tablet through foil backing. Administer immediately on tongue and oral disintegrating tablet dissolves in seconds, then swallow with saliva. Liquid not required. $Given 09/07/2023 6:52 PM TOW CAR DRIVER 4 mg documented in this encounter Active and Recently Administered Medications Times are shown in TOW CAR DRIVER. Scheduled Medication Order 09/05/2023 09/06/2023 09/07/2023 alum & mag hydroxide-simethicone (MAALOX) suspension 15 mL (COMPLETED) 15 mL, Oral, ONCE, On Tue09/07/23 at 2040, For 1 dose, Use for 'GI cocktail'. 2043 ($Given - Provi lynn: Audrey Mercer, VJ) aspirin (ASA) tablet 325 mg (COMPLETED) 325 mg, Oral, ONCE, On Tue09/07/23 at 1840, For 1 dose 1851 ($Given - Provi lynn: Audrey Mercer, RN) ondansetron (ZOFRAN ODT) ODT tab 4 [...] Total Score: 4 06/20/20 23 8:40 AM TOW CAR DRIVER documented as of this encounter Care Teams Greeting Card Writer Relationship Specialty Start Date End Date Esha Grimm PA-C [address] [place] [phone] PCP - General Family Medicine 05/04/23 Diana Desir, [facility] [address] [facility] [place] [address] Pharmacist Pharmacist 04/17/21 Rain Galaviz PA-C [address] [place] [address] ENMA KNUTSON [address] Physician Powerplant Operator Dermatology 04/28/21 Tavia Wyatt MD [address] [place] [address] EN[place] K[place]UTSON [address] Dermatology 07/14/21 StoesErica youssef APRN HAND ETCHER HELPER [address] [place], [place] [address] Nurse Practitioner Cardiovascular Disease 09/09/21 Rich Barrett MD [address] [facility] [address] [place] [address] Physician Ophthalmology 01/21/22 Neil Kent MD 500 [place] [address] Dermatology 02/24/22 Diana Desir, [facility] [address] [place], [place] [address] Assigned [place] Pharmacist 04/07/22 Livan Sharif MD [address] [place], [place] [address] Cardiovascular Disease 05/14/22 Catherine Cm MD [address] [place], [place] [address] Cardiovascular Disease 07/21/22 Valery Veronica, PA-C [address] [place], [place] [phone] Physician Powerplant Operator Dermatology 07/21/22 Brea Quinn APRN HAND ETCHER HELPER [address] [place], [place] 12[address] Nurse Practitioner Dermatology 09/21/22 Brea Quinn APRN HAND ETCHER HELPER [address] [place] [address] [place] [address] Assigned Surgical Provider 10/09/22 [place] [address] [place] [address] Assigned Musculoskeletal Provider 10/09/22 Alfonso Renteria MD [address] [facility] [address] [place], [place] [address] Assigned Neuroscience Provider 04/02/23 Radha Lomeli APRN HAND ETCHER HELPER [address] [facility] [address] [place] [address] Assigned Heart and Vascular Provider 05/28/23 Jelena David OD [address] [facility] [address] Ophthalmology 06/15/23 Pao Joseph, VJ Personal Advocate & Liaison (PAL) Nurse 08/01/23 Esha Grimm, PA-C [address] [place] [phone] Assigned PCP 07/16/23 documented as of this encounter
--- OUTSIDE RECORDS SUMMARY | 2023-10-28 16:37 | XMS_ITS | Encounter Summary ---
Author Name Unknown Organization [facility] Address [address] [place] [address] Care Team Providers Care Ledger Poster Name Role Phone ThangKendrickDiana T [facility] Unavailable Rain Galaviz-C Unavailable Tavia Wyatt MD Unavailable Unavailable Erica Farrell APRN DRYING MACHINE OPERATOR PACKAGE YARNS Unavailable Rich Barrett MD Unavailable Neil Kent MD Unavailable Diana Desir [facility] Unavailable [phone] Livan Sharif MD Unavailable Catherine Cm MD Unavailable + Valery Veronica-C Unavailable [phone] Brea Quinn CORE PLACER DRYING MACHINE OPERATOR [employer] YARNS Unavailable Brea Quinn CORE PLACER DRYING MACHINE OPERATOR [employer]AGE YARNS Unavailable Jose Francisco Johnson MD Unavailable Alfonso Renteria MD Unavailable + [phone] Esha Grimm PA-C Primary Care Provider Radha Lomeli CORE PLACER DRYING MACHINE OPERATOR [employer] YARNS Unavailable [phone] FrankieJelena OD Unavailable [phone] Pao Joseph RN Unavailable Unavailable Esha Grimm PA-C Unavailable [phone] Encounter Details Date Type Department Care [...] do you attend [facility] or [facility] services? 1 to 4 [...] Answer Date Recorded PHQ-2 Score 0 06/20/2023 [facility] Occupat ional Health - Occupational Stress [...] exercise at this level? 30 min 03/10/2023 Wyarno Depression Scale Answer Date Recorded Wyarno Depression Score 5 01/14/2021 Last EPDS Self [...] Info) Description 11/01/2023 8:00 AM CDT Appointment [facility] [address] [address] Lauren Claudio PA-C [address] [place] [address] 11/03/2023 8:00 AM CDT Office Visit [address] [phone] Valery Veronica PA-C [address] [place] [address] 11/29/2023 8:00 AM CDT Office Visit [facility] [address] [place] [phone] Esha Grimm PA-C [address] [place] [address] 12/19/2023 11:30 AM CDT Hospital Encounter [address] [phone] Rocky Zepeda DO 500 [place], [place] [address] 12/19/2023 11:30 AM CDT - 12/19/2023 12:00 PM CDT Surgery [address] [phone] Rocky Zepeda DO 500 [place], [place] [address] Esophagoscopy, gastroscopy, duodenoscopy (EGD), combined 01/02/2024 8:00 AM CDT Office Visit [facility] [address] [phone] Lauren Claudio PA-C [address] [place], [place] [phone] Kelli Perez MD [address] [place], [place] [address] Scheduled Procedures Name Priority Associated Diagnoses Date/Ti oh ESOPHAGOGASTRODUODENOSCOPY Eosinophilic esophagitis Esophageal dysphagia 12/19/2023 11:30 AM CDT documented as of this encounter Visit Diagnoses Not on filedocumented in this encounter Additional Health Concerns Assessment Noted Time PHQ-9 Depression Total Score: 4 06/20/20 23 8:40 AM LOCK SETTER documented as of this encounter Care Teams Ledger Poster Relationship Specialty Start Date End Date Esha Grimm PA-C [address] [place] [phone] PCP - General Family Medicine 05/04/23 Diana Desir, [facility] [address] [place], [place] [address] Pharmacist Pharmacist 04/17/21 Rain Galaviz PA-C [address] [place] [address] [address] ENMA GARCIA [address] Physician Mending Carrier Dermatology 04/28/21 Tavia Wyatt MD [address] [place] [address] ENMA KNUTSON [address] Dermatology 07/14/21 Erica Farrell APRN DRYING MACHINE OPERATOR PACKAGE YARNS [address] [facility] [address] ENMA GUERRERO [address] Nurse Practitioner Cardiovascular Disease 09/09/21 Rich Barrett MD [address] [facility] [address] [place], [place] [address] Physician Ophthalmology 01/21/22 Neil Kent MD 500 [place], [place] [address] Dermatology 02/24/22 [facility] [address] [place], [place] [address] Assigned MTM Pharmacist 04/07/22 Livan Sharif MD [address] [facility] [address] [address], [facility] [address] [place], [place] [address] Cardiovascular Disease 05/14/22 Catherine Cm MD [address] [phone] [place], [place] [address] Cardiovascular Disease 07/21/22 Valery Veronica, PAUcheC [address] [place], [place] [address] Physician Mending Carrier Dermatology 07/21/22 Brea Quinn APRN DRYING MACHINE OPERATOR [employer]ACKAGE YARNS [address] [place] [address] Nurse Practitioner Dermatology 09/21/22 Brea Quinn APRN DRYING MACHINE OPERATOR [employer]AGE YARNS [address] [place] [address] [place] [address] Assigned Surgical Provider 10/09/22 [place] [address] [place] [address] Assigned Musculoskeletal Provider 10/09/22 Alfonso Renteria MD [address] [place], [place] [address] Assigned Neuroscience Provider 04/02/23 Radha Lomeli APRN DRYING MACHINE OPERATOR PACKAGE YARNS [address] [place] [address] Assigned Heart and Vascular Provider 05/28/23 Jelena David OD [address] [place] [address] Ophthalmology 06/15/23 Pao Joseph, RN Personal Advocate & Liaison (PAL) Nurse 08/01/23 Esha Grimm, PA-C [address] [place] [phone] Assigned PCP 07/16/23 documented as of this encounter
--- OUTSIDE RECORDS SUMMARY | 2023-10-28 16:38 | XMS_ITS | Encounter Summary ---
Author Name Unknown Organization [place] Address [address] [place] [address] Care Team Providers Care Fixture Relamper Name Role Phone ThangKendrickDiana T [facility] Unavailable Rain Galaviz-C Unavailable Tavia Wyatt MD Unavailable Unavailable Erica Farrell APRN [employer] SCHOOL SPANISH TEACHER Unavailable Rich Barrett MD Unavailable Neil Kent MD Unavailable Diana Desir [facility] Unavailable [phone] Livan Sharif MD Unavailable Catherine Cm MD Unavailable + Valery Veronica-C Unavailable [phone] Brea Quinn IMPLEMENTATION CONSULTANT MIDDLE SCHOOL SPANISH TEACHER Unavailable Brea Quinn IMPLEMENTATION CONSULTANT [employer]CHOOL SPANISH TEACHER Unavailable Jose Francisco Johnson MD Unavailable Alfonso Renteria MD Unavailable + [phone] Esha Grimm PA-C Primary Care Provider Radha Lomeli IMPLEMENTATION CONSULTANT [employer]LE SCHOOL SPANISH TEACHER Unavailable FrankieJelena OD Unavailable Pao Joseph RN Unavailable Unavailable Alfa Eshalincoln Medina PA-C Unavailable [phone] Valery Veronica PA-C Unavailable [phone] Rey Tay MD Unavailable DuaneRocky Unavailable Philip Dumont MD Unavailable [phone] Encounter Details Date Type Department Care Team (Late st Contact Info) Description 08/25/2023 MyC Medical Advice [facility] [address] [place] [address] Marija Polanco RN Social History [...] Score 0 06/20/2023 [facility] - Occupational Stress [...] exercise at this level? 30 min 03/10/2023 [place] Depression Scale Answer Date Recorded [place] Depression Score 5 01/14/2021 Last EPDS Self [...] CDT Appointment [facility] [address] [place] [address] Lauren Claudio PA-C [address] [place], [place] [phone] 11/03/2023 8:00 AM CDT Office Visit [address] [phone] Valery Veronica PA-C [address] [place] [address] 11/29/2023 8:00 AM CDT Office Visit [facility] [address] [place] [phone] Esha Grimm PA-C [address] [place] [address] 12/19/2023 11:30 AM CDT Hospital Encounter [facility] [address] [facility] 5th [place] [phone] Rocky Zepeda DO [address] [place] [address] 12/19/2023 11:30 AM CDT - 12/19/2023 12:00 PM CDT Surgery [facility] 909 [facility] [address] 5th [place] [phone] Rocky Zepeda, 500 [place], [place] [address]135 Esophagoscopy, gastroscopy, duodenoscopy (EGD), combined 01/02/2024 8:00 AM CDT Office Visit [facility] [address] [place] [phone] Lauren Claudio PA-C [address] [place], [place] [phone] Kelli Perez MD [address] [id number] Scheduled Procedures Name Priority Associated Diagnoses Date/Ti pr ESOPHAGOGASTRODUODENOSCOPY Eosinophilic esophagitis Esophageal dysphagia 12/19/2023 11:30 AM CDT documented as of this encounter Visit Diagnoses Not on filedocumented in this encounter Additional Health Concerns Assessment Noted Time PHQ-9 Depression Total Score: 4 06/20/20 23 8:40 AM MEDICAL RECORDS TECH documented as of this encounter Care Teams Fixture Relamper Relationship Specialty Start Date End Date Esha Grimm PA-C [address] [place] [address] PCP - General Family Medicine 05/04/23 Diana Desir, [facility] [address] [place], [place] [address] Pharmacist Pharmacist 04/17/21 Rain Galaviz PA-C [address] [place] [address] [address] [id number] Physician Web Services Manager Dermatology 04/28/21 Tavia Wyatt MD [address] [place] [address] DR RAZO [facility] [place] [address] Dermatology 07/14/21 Erica Farrell APRN [employer] SPANISH TEACHER [address] [place], [place] [address] Nurse Practitioner Cardiovascular Disease 09/09/21 Rich Barrett MD 516 [facility] 9A [place] [address] Physician Ophthalmology 01/21/22 Neil Kent MD 500 [place] [address] Dermatology 02/24/22 [facility] 3033 [place], [place] 276966 Assigned MTM Pharmacist 04/07/22 Livan Sharif MD [address] [place] [address] Cardiovascular Disease 05/14/22 Catherine Cm MD [address] [place] [address] Cardiovascular Disease 07/21/22 Valery Veronica, PA-C [address] [place] [address]295 Physician Web Services Manager Dermatology 07/21/22 Brea Quinn APRN [employer] SPANISH TEACHER 500 [place] [address] Nurse Practitioner Dermatology 09/21/22 Brea Quinn APRN [employer] SPANISH TEACHER 6401 [facility] [place] [address] Assigned Surgical Provider 10/09/22 [place] [address] [facility] 300 [place] [address] Assigned Musculoskeletal Provider 10/09/22 Alfonso Renteria MD 5775 [facility] 200 [place], [place] [address] Assigned Neuroscience Provider 04/02/23 Radha Lomeli APRN [employer] SPANISH TEACHER 6405 [facility] [address] [place] [address] Assigned Heart and Vascular Provider 05/28/23 Jelena David OD [address] [facility] [place] [address] Ophthalmology 06/15/23 Pao Joseph, VJ Personal Advocate & Liaison (PAL) Nurse 08/01/23 Esha Grimm PA-C [address] [place] [phone] Assigned PCP 07/16/23 Valery Veronica PA-C 909 [place] [address] Physician Web Services Manager Dermatology 09/19/23 Rey Tay MD [address] [place] [address] MD Gastroenterology 09/20/23 Rocky Zepeda DO [address] [place] [address] Physician Gastroenterology 09/20/23 Philip Dumont MD [address] [place] [address] Physician Ophthalmology 09/22/23 documented as of this encounter
--- OUTSIDE RECORDS SUMMARY | 2023-10-28 16:38 | XMS_ITS | Encounter Summary ---
Author Name Unknown Organization [place] Address [address] [place] [address] Care Team Providers Care Customer Care Specialist Name Role Phone ThangKendrickDiana T [facility] Unavailable Rain Galaviz-C Unavailable [phone] Tavia Wyatt MD Unavailable Unavailable Erica Farrell APRN HUMAN RESOURCES OFFICE ASSISTANT Unavailable Rich Barrett MD Unavailable Neil Kent MD Unavailable Diana Desir [facility] Unavailable [phone] Livan Sharif MD Unavailable Catherine Cm MD Unavailable + Valery Veronica-C Unavailable [phone] Brea Quinn HEEL BREASTER HUMAN RESOURCES OFFICE ASSISTANT Unavailable Brea Quinn HEEL BREASTER HUMAN RESOURCES OFFICE ASSISTANT Unavailable Jose Francisco Johnosn MD Unavailable Alfonso Renteria MD Unavailable + [phone] Esha Grimm PA-C Primary Care Provider Radha Lomeli HEEL BREASTER HUMAN RESOURCES OFFICE ASSISTANT Unavailable FrankieJelena OD Unavailable Pao Joseph RN Unavailable Unavailable Alfa Eshalincoln Medina PA-C Unavailable [phone] Valery Veronica PA-C Unavailable [phone] Rey Tay MD Unavailable DuaneRocky Unavailable Philip Dumont MD Unavailable [phone] Encounter Details Date Type Department Care Team (Late st Contact Info) Description 08/25/2023 MyC Medical Advice [facility] [address] [place] [address] Marija Polanco RN Social History [...] often do you attend chur ch or zoroastrian services? 1 to 4 times per year 03/10/2023 Do you belong to any clubs o r organizations such as amish groups, unions, fraternal or athletic groups, [...] 06/20/2023 [facility] - Occupational Stress Questionnaire Answer Date [...] exercise at this level? 30 min 03/10/2023 [place] Depression Scale Answer Date Recorded [place] Depression Score 5 01/14/2021 Last EPDS Self [...] [facility] [address] [place] [address] Lauren Claudio PA-C [address] [place], [place] [phone] 11/03/2023 8:00 AM CDT Office Visit [address] [phone] Valery Veronica PA-C [address] [place] [address] 11/29/2023 8:00 AM CDT Office Visit [facility] [address] [place] [phone] Esha Grimm PA-C [address] [place] [address] 12/19/2023 11:30 AM CDT Hospital Encounter [facility] 909 [facility] 5th [place] [phone] Rocky Zepeda DO [address] [place] [address] 12/19/2023 11:30 AM CDT - 12/19/2023 12:00 PM CDT Surgery [facility] 909 [facility] [address] 5th [place] [phone] Rocky Zepeda, 500 [place], [place] [address] Esophagoscopy, gastroscopy, duodenoscopy (EGD), combined 01/02/2024 8:00 AM CDT Office Visit [facility] [address] [place] [phone] Lauren Claudio PA-C [address] [place], [place] [phone] Kelli Perez MD [address] [phone] Scheduled Procedures Name Priority Associated Diagnoses Date/Ti al ESOPHAGOGASTRODUODENOSCOPY Eosinophilic esophagitis Esophageal dysphagia 12/19/2023 11:30 AM CDT documented as of this encounter Visit Diagnoses Not on filedocumented in this encounter Additional Health Concerns Assessment Noted Time PHQ-9 Depression Total Score: 4 06/20/20 23 8:40 AM JOCKEY AGENT documented as of this encounter Care Teams Customer Care Specialist Relationship Specialty Start Date End Date Esha Grimm PA-C [address] [place] [address] PCP - General Family Medicine 05/04/23 Diana Desir, [facility] [address] [place], [place] [address] Pharmacist Pharmacist 04/17/21 Rain Galaviz PA-C [address] [place] [address] [address] [id number] Physician Microarray Analyst Dermatology 04/28/21 Tavia Wyatt MD [address] [place] [address] DR RA[address] [facility] [place] [address] Dermatology 07/14/21 Erica Farrell APRN HUMAN RESOURCES OFFICE ASSISTANT [address] [place], [place] [address] Nurse Practitioner Cardiovascular Disease 09/09/21 Rich Barrett MD 516 [facility] 9A [place] [address] Physician Ophthalmology 01/21/22 Neil Kent MD 500 [place] [address] Dermatology 02/24/22 [facility] 3033 [place], [place] 289736 Assigned MTM Pharmacist 04/07/22 Livan Sharif MD [address] [place] [address] Cardiovascular Disease 05/14/22 Catherine Cm MD [address] [place] [address] Cardiovascular Disease 07/21/22 Valery Veronica, PA-C [address] [place] [address] 422965 Physician Microarray Analyst Dermatology 07/21/22 Brea Quinn APRN HUMAN RESOURCES OFFICE ASSISTANT 500 [place] [address] Nurse Practitioner Dermatology 09/21/22 Brea Quinn APRN HUMAN RESOURCES OFFICE ASSISTANT 6401 [facility] [place] [address] Assigned Surgical Provider 10/09/22 [place] [address] [facility] 300 [place] [address] Assigned Musculoskeletal Provider 10/09/22 Alfonso Renteria MD 5775 [facility] 200 [place], [place] [address] Assigned Neuroscience Provider 04/02/23 Radha Lomeli APRN HUMAN RESOURCES OFFICE ASSISTANT 6405 [facility] [address] [place] [address] Assigned Heart and Vascular Provider 05/28/23 Jelena David OD [address] [facility] [place] [address] Ophthalmology 06/15/23 Pao Joseph, VJ Personal Advocate & Liaison (PAL) Nurse 08/01/23 Esha Grimm PA-C [address] [place] [phone] Assigned PCP 07/16/23 Valery Veronica PA-C 909 [place] [address] Physician Microarray Analyst Dermatology 09/19/23 Rey Tay MD [address] [place] [address] MD Gastroenterology 09/20/23 Rocky Zepeda DO [address] [place] [address] Physician Gastroenterology 09/20/23 Philip Dumont MD [address] [place] [address] Physician Ophthalmology 09/22/23 documented as of this encounter
--- OUTSIDE RECORDS SUMMARY | 2023-10-28 16:38 | XMS_ITS | Encounter Summary ---
Author Name Unknown Organization [place] Address [address] [place] [address] Care Team Providers Care Metrology Specialist Name Role Phone ThangKendrickDiana T [facility] Unavailable [phone] Rain Galaviz-C Unavailable Tavia Wyatt MD Unavailable Unavailable Erica Farrell APRN CEMENT MASON HELPER Unavailable Rich Barrett MD Unavailable Neil Kent MD Unavailable Diana Desir [facility] Unavailable [phone] Livan Sharif MD Unavailable Catherine Cm MD Unavailable + Valery Veronica-C Unavailable [phone] Brea Quinn PROJECTOR OPERATOR CEMENT MASON HELPER Unavailable Brea Quinn PROJECTOR OPERATOR CEMENT MASON HELPER Unavailable Jose Francisco Johnson MD Unavailable Alfonso Renteria MD Unavailable + [phone] Esha Grimm PA-C Primary Care Provider Radha Lomeli PROJECTOR OPERATOR CEMENT MASON HELPER Unavailable [phone] Jelena David OD Unavailable Pao Joseph RN Unavailable Unavailable Esha Grimm PA-C Unavailable [phone] Reason for Visit * Reason Onset Date Comments Pt. Information/instruction 08/25/2023 EGD Encounter Details Date Type Department Care Team ([facility] st Contact Info) Description 08/25/2023 Telephone [facility] Endoscopy 500 [place] [address] Marija Polanco, VJ Pt. Information/instruction [...] you attend [facility] sa[facility] or restorationist services? 1 to 4 times per year [...] Date Recorded PHQ-2 Score 0 06/20/2023 [facility] - Occupational [...] at this level? 30 min 03/10/2023 [place] Depression Scale Answer Date Recorded [place] Depression Score 5 01/14/2021 Last EPDS Self [...] Pre op exam needed? N/A Facility location: [facility]; [address] [place] [address] Sedation type: Conscious sedation Pre-Assessment was completed for previously scheduled procedure. (See documentation below). No new medical events or medications since last review. Resent prep instructions via Syncing[employer]Net. RN spoke with Patient and reviewed information. They have no further questions or concerns at this time. Marija Polanco RN Endoscopy Procedure Pre advertising teacher RACKER * Telephone Encounter - Marija Polanco RN - 08/30/2023 8:56 AM CST Pre assessment completed for upcoming procedure. (Please see previous telephone encounter notes for complete details) Procedure details: Arrival time and facility location reviewed. Pre op exam needed? N/A Designated otr company truck driver policy reviewed. Instructed to have someone [...] time. Marija Polanco RN Endoscopy Procedure Pre advertising teacher [phone] option 4 RACKER * Telephone Encounter - Marija Polanco RN - 08/25/2023 1:47 PM CST Attempted to contact patient in order to complete pre assessment questions. No answer. Left message to return call to [phone] option 4 Missed call communication sent via [employer]. Marija Polanco RN Endoscopy Procedure Pre advertising teacher RACKER * Telephone Encounter - Marija Polanco RN - 08/25/2023 1:34 PM CST Pre visit planning completed. Procedure details: Patient scheduled for Upper endoscopy (EGD) on 09/08/23. Arrival time: 0745. Procedure time 0830 Pre op exam needed? N/A Facility location: [facility]; [address] [place] [address] Sedation type: Conscious sedation Indication for procedure: [...] Prep for procedure: Prep instructions sent via Syncing[employer]Net Marija Polanco RN Endoscopy Procedure Pre advertising teacher [phone] option 4 RACKER documented in this encounter Plan of Treatment Upcoming Encounters Date Type Department Care Team (Late st Contact Info) Description 11/01/2023 8:00 AM CDT Appointment [facility] [address] [phone] Lauren Claudio PA-C [address] [place] [address] 11/03/2023 8:00 AM CDT Office Visit [address] [phone] Valery Veronica PA-C [address] [place] [address] 11/29/2023 8:00 AM CDT Office [facility] [address] [place] [phone] Esha Grimm PA-C [address] [place] [phone] 12/19/2023 11:30 AM CDT Hospital Encounter [address] [phone] Rocky Zepeda DO 500 [place], [place] [address] 12/19/2023 11:30 AM CDT - 12/19/2023 12:00 PM CDT Surgery [address] [phone] Rocky Zepeda DO 500 [place] [address] Esophagoscopy, gastroscopy, duodenoscopy (EGD), combined 01/02/2024 8:00 AM CDT Office Visit [facility] [place] [address] [place] [phone] Lauren Claudio PA-C [address] [place], [place] [phone] Kelli Perez MD [address] [facility] 106 [place], [place] [address] Scheduled Procedures Name Priority Associated Diagnoses Date/Ti nv ESOPHAGOGASTRODUODENOSCOPY Eosinophilic esophagitis Esophageal dysphagia 12/19/2023 11:30 AM CDT documented as of this encounter Visit Diagnoses Not on filedocumented in this encounter Additional Health Concerns Assessment Noted Time PHQ-9 Depression Total Score: 4 06/20/20 8:40 AM BEAM RACKER documented as of this encounter Care Teams Metrology Specialist Relationship Specialty Start Date End Date Esha Grimm PA-C [address] [place] [phone] PCP - General Family Medicine 05/04/23 Diana Desir, [facility] [address] [place] [address] Pharmacist Pharmacist 04/17/21 Rain Galaviz PA-C [address] [place] [address] [address] [address] Physician Technical Writer Dermatology 04/28/21 Tavia Wyatt MD [address] [place] [address] [address] [address] Dermatology 07/14/21 Erica Farrell APRN CEMENT MASON HELPER 6405 [facility] [address] [place] [address] Nurse Practitioner Cardiovascular Disease 09/09/21 Rich Barrett MD 516 [facility] 9A [place], [place] [address] Physician Ophthalmology 01/21/22 Neil Kent MD 500 [place], [place] [address]555 Dermatology 02/24/22 Diana Desir, [facility] 3033 [place], [place] [address]26 Assigned MTM Pharmacist 04/07/22 Livan Sharif MD [address], [facility] [address] [place] [address] Cardiovascular Disease 05/14/22 Catherine Cm MD [address] [facility] [place] [address] Cardiovascular Disease 07/21/22 Valery Veronica, PAUcheC 909 [place], [place] [address] Physician Technical Writer Dermatology 07/21/22 Brea Quinn APRN CEMENT MASON HELPER 500 [place], [place] [address] Nurse Practitioner Dermatology 09/21/22 Brea Quinn APRN CEMENT MASON HELPER 6401 [place] [address] Assigned Surgical Provider 10/09/22 [place] [address] [place] [address] [place] [address] Assigned Musculoskeletal Provider 10/09/22 Alfonso Renteria MD [address] [place], [place] [address]556 Assigned Neuroscience Provider 04/02/23 Radha Lomeli APRN CEMENT MASON HELPER [address] [place], [place] [address] Assigned Heart and Vascular Provider 05/28/23 Jelena David OD [address] [facility] [place] [address] Ophthalmology 06/15/23 Pao Joseph, RN Personal Advocate & Liaison (PAL) Nurse 08/01/23 Esha Grimm, PA-C [address] [place] [phone] Assigned PCP 07/16/23 documented as of this encounter
--- OUTSIDE RECORDS SUMMARY | 2023-10-28 16:38 | XMS_ITS | Encounter Summary ---
Author Name Unknown Organization [place] Address [address] [place] [address] Care Team Providers Care Public Finance Specialist Name Role Phone ThangKendrickDiana T [facility] Unavailable Rain Galaviz-C Unavailable Tavia Wyatt MD Unavailable Unavailable Erica Farrell APRN CORPORATE RELATIONS MANAGER Unavailable Rich Barrett MD Unavailable Neil Kent MD Unavailable Diana Desir [facility] Unavailable [phone] Livan Sharif MD Unavailable Catherine Cm MD Unavailable + Valery Veronica-C Unavailable [phone] Brea Quinn PHLEBOTOMY TECHNICIAN CORPORATE RELATIONS MANAGER Unavailable Brea Quinn PHLEBOTOMY TECHNICIAN CORPORATE RELATIONS MANAGER Unavailable Jose Francisco Johnson MD Unavailable Alfonso Renteria MD Unavailable + [phone] Esha Grimm PA-C Primary Care Provider Radha Lomeli PHLEBOTOMY TECHNICIAN CORPORATE RELATIONS MANAGER Unavailable Frankie Jelena Radha OD Unavailable Pao Joseph RN Unavailable Unavailable Esha Grimm PA-C Unavailable [phone] Valery Veronica PA-C Unavailable Rey Tay MD Unavailable Duane Rockyanne STEVENS Unavailable Philip Dumont MD Unavailable [phone] Encounter Details Date Type Department Care Team (Late st Contact Info) Description 08/25/2023 [facility] Medical Advice [address] [address] Diana Desir, [facility] 30[address] [place] [address] Social History Tobacco Use Types [...] week 03/10/2023 How often do you attend [facility] or scientologist services? 1 to 4 times [...] Answer Date Recorded PHQ-2 Score 0 06/20/2023 [facility] - Occupational Stress Questionnaire Answer [...] exercise at this level? 30 min 03/10/2023 [place] Depression Scale Answer Date Recorded [place] Depression Score 5 01/14/2021 Last EPDS Self [...] [facility] [address] [place] [address] Lauren Claudio PA-C [address] [place], [place] [phone] 11/03/2023 8:00 AM CDT Office Visit [address] [phone] Valery Veronica PA-C [address] [place] [address] 11/29/2023 8:00 AM CDT Office Visit [facility] [address] [place] [phone] Esha Grimm PA-C [address] [place] [phone] 12/19/2023 11:30 AM CDT Hospital Encounter [facility] 909 [facility] 5th [place] [phone] Rocky Zepeda DO 500 [place] [address] 12/19/2023 11:30 AM CDT - 12/19/2023 12:00 PM CDT Surgery [facility] [address] [facility] [address] 5th [place] [phone] Rocky Zepeda, DO 500 [facility] [place], [place] [address] Esophagoscopy, gastroscopy, duodenoscopy (EGD), combined 01/02/2024 8:00 AM CDT Office [facility] [address] [place] [phone] Lauren Claudio PA-C [address] [place], [place] [phone] Kelli Perez MD [address] [place], [place] [address]E [facility] 106 [place], [place] 981434 Scheduled Procedures Name Priority Associated Diagnoses Date/Ti ks ESOPHAGOGASTRODUODENOSCOPY Eosinophilic esophagitis Esophageal dysphagia 12/19/2023 11:30 AM CDT documented as of this encounter Visit Diagnoses Not on filedocumented in this encounter Additional Health Concerns Assessment Noted Time PHQ-9 Depression Total Score: 4 06/20/20 23 8:40 AM INDUSTRIAL METHODS CONSULTANT documented as of this encounter Care Teams Public Finance Specialist Relationship Specialty Start Date End Date Esha Grimm PA-C [address] [place] [phone] PCP - General Family Medicine 05/04/23 Diana Desir [facility] 3033 [place] [address] Pharmacist Pharmacist 04/17/21 Rain Galaviz PA-C [address] [place] [address] [address] [place] [address] Physician Pneumatic Deicer Inspector Dermatology 04/28/21 Tavia Wyatt MD [address] [place] [address] EN[place] K[place]UTSON [address] Dermatology 07/14/21 Erica Farrell APRN CORPORATE RELATIONS MANAGER [address] [place] [address] Nurse Practitioner Cardiovascular Disease 09/09/21 Rich Barrett MD [address] [place] [address]45 Physician Ophthalmology 01/21/22 Neil Kent MD [address] [place] [address] 391775 Dermatology 02/24/22 [facility] [address] [place] [address] 156206 Assigned [place] Pharmacist 04/07/22 Livan Sharif MD [address], [facility]00 [place] [address] Cardiovascular Disease 05/14/22 Catherine Cm MD [address] [facility]00 [place] 68[address]95 Cardiovascular Disease 07/21/22 Valery Veronica, PA-C [address] [place] [address] 365225 Physician Pneumatic Deicer Inspector Dermatology 07/21/22 Brea Quinn APRN CORPORATE RELATIONS MANAGER 500 [place], [place] 787245 Nurse Practitioner Dermatology 09/21/22 Brea Quinn APRN CORPORATE RELATIONS MANAGER 6401 [place], [place] 578612 Assigned Surgical Provider 10/09/22 [place] [address] [id number] Assigned Musculoskeletal Provider 10/09/22 Alfonso Renteria MD 5775 [facility] 200 [place], [place] 284176 Assigned Neuroscience Provider 04/02/23 Radha Lomeli APRN CORPORATE RELATIONS MANAGER [address] 673835 Assigned Heart and Vascular Provider 05/28/23 Jelena David OD [address] [facility] [address] [place] [id number] Ophthalmology 06/15/23 Pao Joseph, RN Personal Advocate & Liaison (PAL) Nurse 08/01/23 Esha Grimm PA-C [address] [place] [address] Assigned PCP 07/16/23 Valery Veronica PA-C 9 [place] [address] Physician Pneumatic Deicer Inspector Dermatology 09/19/23 Rey Tay MD 9 [place] [address] Gastroenterology 09/20/23 Rocky Zepeda DO [address] [place] [address] 493215 Physician Gastroenterology 09/20/23 Philpi Dumont MD [address] [place] [address] 928565 Physician Ophthalmology 09/22/23 documented as of this encounter
--- OUTSIDE RECORDS SUMMARY | 2023-10-28 16:38 | XMS_ITS | Encounter Summary ---
Author Name Unknown Organization [place] Address [address] [place] [address] Care Team Providers Care Supervisor Laundry Name Role Phone ThangKendrickDiana T [facility] Unavailable Rain Galaviz-C Unavailable Tavia Wyatt MD Unavailable Unavailable Erica Farrell APRN HAT BLOCK BENCH HAND Unavailable Rich Barrett MD Unavailable Neil Kent MD Unavailable Diana Desir [facility] Unavailable [phone] Livan Sharif MD Unavailable Catherine Cm MD Unavailable + Valery Veronica-C Unavailable [phone] Brea Quinn METAPHYSICS TEACHER HAT BLOCK BENCH HAND Unavailable [phone] Brea Quinn METAPHYSICS TEACHER HAT BLOCK BENCH HAND Unavailable [phone] Jose Francisco Johnson MD Unavailable Alfonso Renteria MD Unavailable + [phone] Esha Grimm PA-C Primary Care Provider [phone] Radha Lomeli METAPHYSICS TEACHER HAT BLOCK BENCH HAND Unavailable Jelena David OD Unavailable Pao Joseph RN Unavailable Unavailable Esha Grimm PA-C Unavailable [phone] Encounter Details Date Type Department Care Team (Late st Contact Info) Description 08/29/2023 MyC Medical Advice [facility] [address] [place] [address] Esha Grimm PA-C [id number] [place] [address] Social History Tobacco Use Types Packs/Day [...] do you attend chur or zoroastrian services? 1 to 4 times [...] Answer Date Recorded PHQ-2 Score 0 06/20/2023 [facility] [place] of Occupat ional Health - Occupational Stress [...] at this level? 30 min 03/10/2023 [place] Depression Scale Answer Date Recorded [place] Depression Score 5 01/14/2021 Last EPDS Self [...] Bassem Arnett RN - 08/30/2023 4:08 PM RELAY TELEGRAPHER - advised to schedule an appointment either by Myc or by calling the station to schedule. Chuckie Arnett RN Patient Advocate Liaison (PAL) [facility] 08/30/2023 at 4:14 PM Y TELEGRAPHER documented in this encounter Plan of Treatment Upcoming Encounters Date Type Department Care Team (Late st Contact Info) Description 11/01/2023 8:00 AM CDT Appointment [facility] Imaging 6401 [facility] [place] [place] [phone] Lauren Claudio PA-C [address] [place], [place] [phone] 11/03/2023 8:00 AM CDT Office Visit [address] [phone] Valery Veronica PA-C [address] [place] [address] 11/29/2023 8:00 AM CDT Office Visit [facility] [address] [place] [phone] Esha Grimm PA-C [address] [place] [phone] 12/19/2023 11:30 AM CDT Hospital Encounter [address] 5th [place] [phone] Rocky Zepeda, DO 500 [place] [address] 12/19/2023 11:30 AM CDT - 12/19/2023 12:00 PM CDT Surgery [facility] 909 [facility] 5th [place] [phone] Rocky Zepeda DO 500 [place] [address] Esophagoscopy, gastroscopy, duodenoscopy (EGD), combined 01/02/2024 8:00 AM CDT Office Visit [facility] [address] [place] [phone] Lauren Claudio PA-C [address] [place], [place] [phone] Kelli Perez MD [address] [facility] 106 [place], [place] 229174 Scheduled Procedures Name Priority Associated Diagnoses Date/Ti wy ESOPHAGOGASTRODUODENOSCOPY Eosinophilic esophagitis Esophageal dysphagia 12/19/2023 11:30 AM CDT documented as of this encounter Visit Diagnoses Not on filedocumented in this encounter Additional Health Concerns Assessment Noted Time PHQ-9 Depression Total Score: 4 06/20/20 23 8:40 AM RELAY TELEGRAPHER documented as of this encounter Care Teams Supervisor Laundry Relationship Specialty Start Date End Date Esha Grimm PA-C [address] [place] [address] PCP - General Family Medicine 05/04/23 Diana Desir, [facility] 3033 [place] [address] Pharmacist Pharmacist 04/17/21 Rain Galaviz PA-C [address] [place] [address] [address] [place] [address] Physician Resident Care Provider Dermatology 04/28/21 Tavia Wyatt MD [address] [place] [address] ENMA KNUTSON [address] Dermatology 07/14/21 Erica Farrell APRN HAT BLOCK BENCH HAND [address] [place] [address] Nurse Practitioner Cardiovascular Disease 09/09/21 Rich Barrett MD [address] [place] [address] 9A [place], [place] 658145 Physician Ophthalmology 01/21/22 Neil Kent MD 500 [place], [place] 441155 Dermatology 02/24/22 Diana Desir, [facility] [address] [place] [address] Assigned MTM Pharmacist 04/07/22 Livan Sharif MD [address] [place] 750065 Cardiovascular Disease 05/14/22 Catherine Cm MD [address] [place] [address] Cardiovascular Disease 07/21/22 Valery Veronica PA-C 909 [place], [place] 899715 Physician Resident Care Provider Dermatology 07/21/22 Brea Quinn APRN HAT BLOCK BENCH HAND 500 [place], [place] 226595 Nurse Practitioner Dermatology 09/21/22 Brea Quinn APRN HAT BLOCK BENCH HAND 6401 [place], [place] 540942 Assigned Surgical Provider 10/09/22 [place] [address] [address] [facility] 300 [place] [address] Assigned Musculoskeletal Provider 10/09/22 Alfonso Renteria MD [address] [facility] 200 [place] [address] Assigned Neuroscience Provider 04/02/23 Radha Lomeli APRN HAT BLOCK BENCH HAND 6405 [facility] [address] [place] 863425 Assigned Heart and Vascular Provider 05/28/23 Jelena David OD [address] [facility] [address] Ophthalmology 06/15/23 Pao Joseph, RN Personal Advocate & Liaison (PAL) Nurse 08/01/23 Esha Grimm PA-C [address] [place] [phone] Assigned PCP 07/16/23 documented as of this encounter
--- OUTSIDE RECORDS SUMMARY | 2023-10-28 16:38 | XMS_ITS | Encounter Summary ---
Author Name Unknown Organization [place] Address [address] [place] [address] Care Team Providers Care Quality Process Lead Name Role Phone ThangKendrickDiana T [facility] Unavailable Rain Galaviz-C Unavailable [phone] Tavia Wyatt MD Unavailable Unavailable Erica Farrell APRN PATENT SOLICITOR Unavailable Rich Barrett MD Unavailable Neil Kent MD Unavailable Diana Desir [facility] Unavailable [phone] Livan Sharif MD Unavailable Catherine Cm MD Unavailable + Valery Veronica-C Unavailable [phone] Brea Quinn BPM ANALYST PATENT SOLICITOR Unavailable Brea Quinn BPM ANALYST PATENT SOLICITOR Unavailable Jose Francisco Johnson MD Unavailable Alfonso Renteria MD Unavailable + [phone] Esha Grimm PA-C Primary Care Provider [phone] Radha Lomeli BPM ANALYST PATENT SOLICITOR Unavailable Jelena David OD Unavailable Pao Joseph RN Unavailable Unavailable Esha Grimm PAUcheC Unavailable [phone] Encounter Details Date Type Department Care Team (Late st Contact Info) Description 08/30/2023 Telephone [facility] [address], [address] [place] [address] Alfonso Renteria MD 5730 [facility] [address] 200 [place] [address] Social History Tobacco Use Types [...] Answer Date Recorded PHQ-2 Score 0 06/20/2023 [facility] [place] of Occupat ional Health - Occupational Stress [...] exercise at this level? 30 min 03/10/2023 [place] Depression Scale Answer Date Recorded [place] Depression Score 5 01/14/2021 Last EPDS Self [...] letter, patient would like additional information added. LY CHAIN GENERALIST documented in this encounter Plan of Treatment Upcoming Encounters Date Type Department Care Team (Late st Contact Info) Description 11/01/2023 8:00 AM CDT Appointment [facility] [address]01 [facility] [place] [address] Lauren Claudio PA-C [address] [place], [place] [phone] 11/03/2023 8:00 AM CDT Office Visit [address] [phone] Valery Veronica PA-C [address] [place] [address] 11/29/2023 8:00 AM CDT Office Visit [facility] [address] [place] [phone] Esha Grimm PA-C [address] [place] [address] 12/19/2023 11:30 AM CDT Hospital Encounter [facility] 909 [facility] 5th [place] [phone] Rocky Zepeda, DO [address] [place] [address] 12/19/2023 11:30 AM CDT - 12/19/2023 12:00 PM CDT Surgery [facility] 909 [facility] 5th [place] [phone] Rocky Zepeda, DO 500 [place] [address] Esophagoscopy, gastroscopy, duodenoscopy (EGD), combined 01/02/2024 8:00 AM CDT Office Visit [facility] [address] [place] [phone] Lauren Claudio PA-C [address] [place] [address] Kelli Perez MD 606 [facility] [address] 688624 Scheduled Procedures Name Priority Associated Diagnoses Date/Ti md ESOPHAGOGASTRODUODENOSCOPY Eosinophilic esophagitis Esophageal dysphagia 12/19/2023 11:30 AM CDT documented as of this encounter Visit Diagnoses Not on filedocumented in this encounter Additional Health Concerns Assessment Noted Time PHQ-9 Depression Total Score: 4 06/20/20 23 8:40 AM SUPPLY CHAIN GENERALIST documented as of this encounter Care Teams Quality Process Lead Relationship Specialty Start Date End Date Esha Grimm PA-C [address] [place] [phone] PCP - General Family Medicine 05/04/23 Diana Desir, [facility] [address] [place] [address] Pharmacist Pharmacist 04/17/21 Rain Galaviz PA-C [address] [place] [address] [address] [place] [address] Physician Digital Marketing Project Manager Dermatology 04/28/21 Tavia Wyatt MD [address] [place] [address] [place] [address] Dermatology 07/14/21 Erica Farrell APRN PATENT SOLICITOR [address] [place] [address] Nurse Practitioner Cardiovascular Disease 09/09/21 Rich Barrett MD [address] [place] [address] 970525 Physician Ophthalmology 01/21/22 Neil Kent MD 500 [place], [place] 769575 Dermatology 02/24/22 Diana Desir, [facility] 3033 [place] [address] Assigned [facility] Pharmacist 04/07/22 Livan Sharif MD [address], [facility] [address] [place] [address] Cardiovascular Disease 05/14/22 Catherine Cm MD [address] [place] [address] Cardiovascular Disease 07/21/22 Valery Veronica PA-C [address] [place] [address] [place] [address] Physician Digital Marketing Project Manager Dermatology 07/21/22 Brea Quinn APRN PATENT SOLICITOR 500 [place] [address] Nurse Practitioner Dermatology 09/21/22 Brea Qunin APRN PATENT SOLICITOR 6401 [place] [address] Assigned Surgical Provider 10/09/22 [place] [address] [place] [address] [address] Assigned Musculoskeletal Provider 10/09/22 Alfonso Renteria MD 5775 [facility] 200 [place], [place] 181896 Assigned Neuroscience Provider 04/02/23 Radha Lomeli APRN PATENT SOLICITOR [address] [place] 0864400 [place] [address] Assigned Heart and Vascular Provider 05/28/23 Jelena David OD [address] [facility] [place] [address] Ophthalmology 06/15/23 Pao Joseph, RN Personal Advocate & Liaison (PAL) Nurse 08/01/23 Esha Grimm, PAUcheC [address] [place] [address] Assigned PCP 07/16/23 documented as of this encounter
--- OUTSIDE RECORDS SUMMARY | 2023-10-28 16:38 | XMS_ITS | Encounter Summary ---
Author Name Unknown Organization [place] Address [address] [place] [address] Care Team Providers Care Validation Leader Name Role Phone ThangKendrickDiana T [facility] Unavailable Rain Galaviz-C Unavailable Tavia Wyatt MD Unavailable Unavailable Erica Farrell APRN EARLY CHILDHOOD EDUCATION SPECIALIST Unavailable Rich Barrett MD Unavailable Neil Kent MD Unavailable Diana Desir [facility] Unavailable [phone] Livan Sharif MD Unavailable Catherine Cm MD Unavailable + Valery Veronica-C Unavailable [phone] Brea Quinn INTELLIGENCE ENGINEER EARLY CHILDHOOD EDUCATION SPECIALIST Unavailable [phone] Brea Quinn INTELLIGENCE ENGINEER EARLY CHILDHOOD EDUCATION SPECIALIST Unavailable Jose Francisco Johnson MD Unavailable Alfonso Renteria MD Unavailable + [phone] Esha Grimm PA-C Primary Care Provider Radha Lomeli INTELLIGENCE ENGINEER EARLY CHILDHOOD EDUCATION SPECIALIST Unavailable Jelena David OD Unavailable Pao Joseph RN Unavailable Unavailable Esha Grimm PA-C Unavailable [phone] Reason for Visit * Reason Onset Date Comments Medication Question 08/25/2023 Encounter Details Date Type Department Care Team (Late st Contact Info) Description 08/25/2023 Telephone [facility] [address] [place] [address] Esha Grimm PA-C [address] [place] [address] Medication Question Social History Tobacco [...] often do you attend chur ch or adventist services? 1 to 4 times per year [...] Answer Date Recorded PHQ-2 Score 0 06/20/2023 [place] of Occupat ionne Health - Occupational Stress Questionnaire Answer Date [...] exercise at this level? 30 min 03/10/2023 [place] Depression Scale Answer Date Recorded [place] Depression Score 5 01/14/2021 Last EPDS Self [...] * Telephone Encounter - Diana Desir [facility] - 08/25/2023 3:06 PM CST [...] 2 weeks and she will send a [employer] message update for next steps if we consider escitalopram next to try instead. Diana Desir, PharmD, BCACP Medication Therapy Management Provider, [facility] [phone] REWINDER * Telephone Encounter - Liliana David Adam - 08/25/2023 9:24 AM CST General Call Contacts Type Contact Phone/Fax 08/25/2023 09:24 AM YARN REWINDER Phone (Incoming) Kim Johnson (Self) [phone] (M) Reason for Call: questions on medication that she just started What are your questions or concerns: Would like to talk to you regarding the medication she just started and states you will know what the medication is. Date of last appointment with provider: 08/24 Could we send this information to you in [employer] or would you prefer to receive a phone call?: Patient would prefer a phone call Okay to leave a detailed message?: Yes at Cell number on file: Telephone Information: REWINDER documented in this encounter Plan of Treatment Upcoming Encounters Date Type Department Care Team (Late st Contact Info) Description 11/01/2023 8:00 AM CDT Appointment [facility] [address] [place] [address] Lauren Claudio PA-C [address] [place] [address] 11/03/2023 8:00 AM CDT Office Visit [address] [phone] Valery Veronica PA-C [address] [place] [address] 11/29/2023 8:00 AM CDT Office Visit [facility] [address] [place] [address] Esha Grimm PA-C [address] [place] [address] 12/19/2023 11:30 AM CDT Hospital Encounter [address] [phone] Rocky Zepeda DO 500 [place], [place] 85[address]35 12/19/2023 11:30 AM CDT - 12/19/2023 12:00 PM CDT Surgery [address] [phone] Rocky Zepeda DO 500 [place], [place] 925545 Esophagoscopy, gastroscopy, duodenoscopy (EGD), combined 01/02/2024 8:00 AM CDT Office Visit [facility] [address] [place] [phone] Lauren Claudio PA-C [address] [place], [place] [phone] Kelli Perez MD 606 [address] 106 [place], [place] [address]694 Scheduled Procedures Name Priority Associated Diagnoses Date/Ti ut ESOPHAGOGASTRODUODENOSCOPY Eosinophilic esophagitis Esophageal dysphagia 12/19/2023 11:30 AM CDT documented as of this encounter Visit Diagnoses Not on filedocumented in this encounter Additional Health Concerns Assessment Noted Time PHQ-9 Depression Total Score: 4 06/20/20 23 8:40 AM YARN REWINDER documented as of this encounter Care Teams Validation Leader Relationship Specialty Start Date End Date Esha Grimm PA-C [address] [place] [phone] PCP - General Family Medicine 05/04/23 Diana Desir, [facility] [address] [place] [address] Pharmacist Pharmacist 04/17/21 Rain Galaviz PA-C [address] [place] [address] [address] [place] [address] Physician Purse Framer Dermatology 04/28/21 Tavia Wyatt MD [address] [place] [address] [address] [place] [address] Dermatology 07/14/21 Erica Farrell APRN EARLY CHILDHOOD EDUCATION SPECIALIST [address] [place] [address]305 Nurse Practitioner Cardiovascular Disease 09/09/21 Rich Barrett MD 516 [facility] 9A [place] [address] Physician Ophthalmology 01/21/22 Neil Kent MD 500 [place], [place] 729745 MD Dermatology 02/24/22 Diana Desir, [facility] 3033 [place], [place] 079406 Assigned [place] Pharmacist 04/07/22 Livan Sharif MD [address], [address] [place], [place] [address] Cardiovascular Disease 05/14/22 Catherine Cm MD [address] [place] 125215 Cardiovascular Disease 07/21/22 Valery Veronica, PA-C 909 [place], [place] 408805 Physician Purse Framer Dermatology 07/21/22 Brea Quinn APRN EARLY CHILDHOOD EDUCATION SPECIALIST 500 [place], [place] [address] Nurse Practitioner Dermatology 09/21/22 Brea Quinn APRN EARLY CHILDHOOD EDUCATION SPECIALIST 6401 [facility] [place] [address] Assigned Surgical Provider 10/09/22 [place] [address] [address] [place] [address] Assigned Musculoskeletal Provider 10/09/22 Alfonso Renteria MD [address] [facility] 200 [place], [place] 9[address]276 Assigned Neuroscience Provider 04/02/23 Radha Lomeli APRN EARLY CHILDHOOD EDUCATION SPECIALIST 6405 [facility] [address] [place] [address] Assigned Heart and Vascular Provider 05/28/23 Jelena David OD [address] [place] [address] Ophthalmology 06/15/23 Pao Joseph, VJ Personal Advocate & Liaison (PAL) Nurse 08/01/23 Esha Grimm, PA-C [address] [place] [address] Assigned PCP 07/16/23 documented as of this encounter
--- OUTSIDE RECORDS SUMMARY | 2023-10-28 16:38 | XMS_ITS | Encounter Summary ---
Author Name Unknown Organization [place] Address [address] [place] [address] Care Team Providers Care Freight Associate Name Role Phone ThangKendrickDiana T [facility] Unavailable Rain Galaviz-C Unavailable Tavia Wyatt MD Unavailable Unavailable Erica Farrell APRN UTILITY BILL COMPLAINTS INVESTIGATOR Unavailable Rich Barrett MD Unavailable Neil Kent MD Unavailable Diana Desir [facility] Unavailable [phone] Livan Sharif MD Unavailable Catherine Cm MD Unavailable + Valery Veronica-C Unavailable [phone] Brea Quinn PUBLIC WORKS TECHNICIAN UTILITY BILL COMPLAINTS INVESTIGATOR Unavailable [phone] Brea Quinn PUBLIC WORKS TECHNICIAN UTILITY BILL COMPLAINTS INVESTIGATOR Unavailable Jose Francisco Johnson MD Unavailable Alfonso Renteria MD Unavailable + [phone] Esha Grimm PA-C Primary Care Provider [phone] Radha Lomeli PUBLIC WORKS TECHNICIAN UTILITY BILL COMPLAINTS INVESTIGATOR Unavailable [phone] FrankieJelena OD Unavailable Pao Joseph RN Unavailable Unavailable Esha Grimm PAUcheC Unavailable [phone] Encounter Details Date Type Department Care Team (Late st Contact Info) Description 08/25/2023 MyC Medical Advice [address] [address] Diana Desir, [facility] [address] [place] [address] Social History Tobacco Use Types Packs/Day Years [...] you attend [facility] sault or shinto services? 1 to 4 times [...] Recorded PHQ-2 Score 0 06/20/2023 [facility] [place] of Occupat ional Health - Occupational Stress [...] exercise at this level? 30 min 03/10/2023 [place] Depression Scale Answer Date Recorded [place] Depression Score 5 01/14/2021 Last EPDS Self [...] * Telephone Encounter - Diana Desir [facility] - 08/25/2023 3:23 PM CST See telephone encounter from today - already addressed and stopping venlafaxine. Diana Desir, PharmD, BCACP Medication Therapy Management Provider, [facility] [phone] Electronically signed by Diana Desir [facility] at 08/25/2023 3:23 PM PRINCIPAL CLERK TYPIST documented in this encounter Plan of Treatment Upcoming Encounters Date Type Department Care Team (Late st Contact Info) Description 11/01/2023 8:00 AM CDT Appointment [facility] [address] [facility] [place] [address] Lauren Claudio PA-C [address] [place], [place] [phone] 11/03/2023 8:00 AM CDT Office Visit [address] [phone] Valery Veronica PA-C [address] [place] [address] 11/29/2023 8:00 AM CDT Office Visit [facility] [address] [place] [phone] Esha Grimm PA-C [address] [place] [phone] 12/19/2023 11:30 AM CDT Hospital Encounter [address] 5th [place] [phone] Rocky Zepeda, 500 [place], [place] 9[address] 12/19/2023 11:30 AM CDT - 12/19/2023 12:00 PM CDT Surgery [facility] [address] [facility] [address] 5th [place] [phone] Rocky Zepeda DO 500 [place] [address] Esophagoscopy, gastroscopy, duodenoscopy (EGD), combined 01/02/2024 8:00 AM CDT Office Visit [facility] [address] [place] [phone] Lauren Claudio PA-C [address] [place], [place] [phone] Kelli Perez MD [address] [phone] Scheduled Procedures Name Priority Associated Diagnoses Date/Ti ar ESOPHAGOGASTRODUODENOSCOPY Eosinophilic esophagitis Esophageal dysphagia 12/19/2023 11:30 AM CDT documented as of this encounter Visit Diagnoses Not on filedocumented in this encounter Additional Health Concerns Assessment Noted Time PHQ-9 Depression Total Score: 4 06/20/20 23 8:40 AM PRINCIPAL CLERK TYPIST documented as of this encounter Care Teams Freight Associate Relationship Specialty Start Date End Date Esha Grimm PA-C [address] [place] [phone] PCP - General Family Medicine 05/04/23 Diana Desir, [facility] [address] [place], [place] 214726 Pharmacist Pharmacist 04/17/21 Rain Galaviz PA-C [address] [place] [address] [address] [place] [address] Physician Flume Tender Dermatology 04/28/21 Tavia Wyatt MD [address] [place] [address] [place] [address] Dermatology 07/14/21 Erica Farrell APRN UTILITY BILL COMPLAINTS INVESTIGATOR [address] [place] 151475 Nurse Practitioner Cardiovascular Disease 09/09/21 Rich Barrett MD [address] 401905 Physician Ophthalmology 01/21/22 Neil Kent MD 500 [place], [place] [address]45 Dermatology 02/24/22 Diana Desir, [facility] [address] [place] [address] Assigned MTM Pharmacist 04/07/22 Livan Sharif MD [address], [address] [place] 306215 Cardiovascular Disease 05/14/22 Catherine Cm MD [address] [place] [address] Cardiovascular Disease 07/21/22 Valery Veronica PA-C 909 [place] [address] Physician Flume Tender Dermatology 07/21/22 Brea Quinn APRN UTILITY BILL COMPLAINTS INVESTIGATOR [address] [place] [address] Nurse Practitioner Dermatology 09/21/22 Brea Quinn APRN UTILITY BILL COMPLAINTS INVESTIGATOR 6401 [place], [place] 482712 Assigned Surgical Provider 10/09/22 [place] [address] [place] [address] Assigned Musculoskeletal Provider 10/09/22 Alfonso Renteria MD [address] [facility] 200 [place], [place] 415346 Assigned Neuroscience Provider 04/02/23 Radha Lomeli APRN UTILITY BILL COMPLAINTS INVESTIGATOR [address] [facility] [address] [place], [place] 845885 Assigned Heart and Vascular Provider 05/28/23 Jelena David OD [address] [place] [address] Ophthalmology 06/15/23 Pao Joseph, VJ Personal Advocate & Liaison (PAL) Nurse 08/01/23 Esha Grimm PA-C [address] [place] [phone] Assigned PCP 07/16/23 documented as of this encounter
--- OUTSIDE RECORDS SUMMARY | 2023-10-28 16:38 | XMS_ITS | Encounter Summary ---
Author Name Unknown Organization [place] Address [address] [place] [address] Care Team Providers Care Cheese Tester Name Role Phone ThangKendrickDiana T [facility] Unavailable Rain Galaviz-C Unavailable Tavia Wyatt MD Unavailable Unavailable Erica Farrell APRN DIGITAL PRODUCT SPECIALIST Unavailable Rich Barrett MD Unavailable Neil Kent MD Unavailable Diana Desir [facility] Unavailable [phone] Livan Sharif MD Unavailable Catherine Cm MD Unavailable + Valery Veronica-C Unavailable [phone] Brea Quinn INDUSTRIAL CHEMISTRY TEACHER DIGITAL PRODUCT SPECIALIST Unavailable Brea Quinn INDUSTRIAL CHEMISTRY TEACHER DIGITAL PRODUCT SPECIALIST Unavailable [phone] Jose Francisco Johnson MD Unavailable Alfonso Renteria MD Unavailable + [phone] Esha Grimm PA-C Primary Care Provider Radha Lomeli INDUSTRIAL CHEMISTRY TEACHER DIGITAL PRODUCT SPECIALIST Unavailable [phone] Jelena David OD Unavailable Pao Joseph RN Unavailable Unavailable Esha Grimm PAUcheC Unavailable [phone] Encounter Details Date Type Department Care Team (Late st Contact Info) Description 08/25/2023 Telephone [facility] [address], [address] [place] [address] Alfonso Renteria MD [address] [facility] [address] 200 [place] [address] Social History Tobacco Use Types [...] Recorded PHQ-2 Score 0 06/20/2023 [facility] [place] of Occupat ional Health - Occupational Stress [...] exercise at this level? 30 min 03/10/2023 [place] Depression Scale Answer Date Recorded [place] Depression Score 5 01/14/2021 Last EPDS Self [...] paperwork completed. Letter can be placed in Eferio I reviewed the timeline with the patient from what is visible to me through [employer]. Patient feels there were additional phone calls prior to the initial form submission Letter written OSITE ASSEMBLER * Telephone Encounter - Caroline Cook - 08/26/2023 1:55 PM CST Patient is requesting a call back after 4pm. OSITE ASSEMBLER * Telephone Encounter - Clement Fernandez RN - 08/26/2023 10:12 AM CST Call placed, message left with call back number OSITE ASSEMBLER * Telephone Encounter - Caroline Cook - 08/25/2023 12:28 PM CST Kim Johnson is calling regarding obtaining a letter from Dr. Renteria to provide to a therapist rrt pertaining to a driving after suspension ticket she'd received while in the process of having her DMV forms completed. Patient is requesting a call from nursing staff to discuss what is needed in this letter. Patient can be reached at [phone]. OSITE ASSEMBLER documented in this encounter Plan of Treatment Upcoming Encounters Date Type Department Care Team (Late st Contact Info) Description 11/01/2023 8:00 AM CDT Appointment [facility] [address] [place] [address] Lauren Claudio PA-C [address] [place], [place] [phone] 11/03/2023 8:00 AM CDT Office Visit [address] [phone] Valery Veronica PA-C [address] [place] [address] 11/29/2023 8:00 AM CDT Office Visit [facility] [address] [place] [address] [phone] Esha Grimm PA-C [address] [place] [phone] 12/19/2023 11:30 AM CDT Hospital Encounter [address] [phone] Rocky Zepeda DO 500 [place] [address] 12/19/2023 11:30 AM CDT - 12/19/2023 12:00 PM CDT Surgery [address] [phone] Rocky Zepeda DO 500 [place] [address] Esophagoscopy, gastroscopy, duodenoscopy (EGD), combined 01/02/2024 8:00 AM CDT Office Visit [facility] [address] [place] [phone] Lauren Claudio PA-C [address] [place], [place] [phone] Kelli Perez MD [address] [facility] [address] 106 [place], [place] 513684 Scheduled Procedures Name Priority Associated Diagnoses Date/Ti ga ESOPHAGOGASTRODUODENOSCOPY Eosinophilic esophagitis Esophageal dysphagia 12/19/2023 11:30 AM CDT documented as of this encounter Visit Diagnoses Not on filedocumented in this encounter Additional Health Concerns Assessment Noted Time PHQ-9 Depression Total Score: 4 06/20/20 23 8:40 AM COMPOSITE ASSEMBLER documented as of this encounter Care Teams Cheese Tester Relationship Specialty Start Date End Date Esha Grimm PA-C [address] [place] [phone] PCP - General Family Medicine 05/04/23 Diana Desir, [facility] 3033 [place] [address] Pharmacist Pharmacist 04/17/21 Rain Galaviz PA-C [address] [place] [address] [address] [place] [address] Physician Iron Worker Dermatology 04/28/21 Tavia Wyatt MD [address] [place] [address] [place] [address] Dermatology 07/14/21 Erica Farrell APRN DIGITAL PRODUCT SPECIALIST [address] [facility] [address] [place] [address] Nurse Practitioner Cardiovascular Disease 09/09/21 Rich Barrett MD 516 [facility], [facility] 9A [place], [place] [phone] Physician Ophthalmology 01/21/22 Neil Kent MD 500 [place], [place] 581165 Dermatology 02/24/22 Diana Desir, [facility] 30[address] [place], [place] 322866 Assigned [place] Pharmacist 04/07/22 Livan Sharif MD [address] [facility] [address] [place] [address] Cardiovascular Disease 05/14/22 Catherine Cm MD [address] [facility] [address] [place] [address] Cardiovascular Disease 07/21/22 Valery Veronica, PA-C 909 [place], [place] 275545 Physician Iron Worker Dermatology 07/21/22 Brea Quinn APRN DIGITAL PRODUCT SPECIALIST 500 [place], [place] 108745 Nurse Practitioner Dermatology 09/21/22 Brea Quinn APRN DIGITAL PRODUCT SPECIALIST 6401 [facility] [place] 80[address]62 Assigned Surgical Provider 10/09/22 [place] [address] [address] [place] [address] Assigned Musculoskeletal Provider 10/09/22 Alfonso Renteria MD [address] [facility] 200 [place], [place] 325436 Assigned Neuroscience Provider 04/02/23 Radha Lomeli APRN DIGITAL PRODUCT SPECIALIST [address] [place] 8[address]885 Assigned Heart and Vascular Provider 05/28/23 Jelena David OD 3305 [facility] [place] [address] Ophthalmology 06/15/23 Pao Joseph, VJ Personal Advocate & Liaison (PAL) Nurse 08/01/23 Esha Grimm, PA-C [address] [place] [phone] Assigned PCP 07/16/23 documented as of this encounter
--- OUTSIDE RECORDS SUMMARY | 2023-10-28 16:38 | XMS_ITS | Encounter Summary ---
Author Name Unknown Organization [place] Address [address] [place] [address] Care Team Providers Care Manager Battery Name Role Phone ThangKendrickDiana T [facility] Unavailable Rain Galaviz-C Unavailable Tavia Wyatt MD Unavailable Unavailable Erica Farrell APRN BOARD SAW RUNNER Unavailable Rich Barrett MD Unavailable Neil Kent MD Unavailable Diana Desir [facility] Unavailable [phone] Livan Sharif MD Unavailable Catherine Cm MD Unavailable + Valery Veronica-C Unavailable [phone] Brea Quinn PATTERN MARKING SUPERVISOR BOARD SAW RUNNER Unavailable Brea Quinn PATTERN MARKING SUPERVISOR BOARD SAW RUNNER Unavailable Jose Francisco Johnson MD Unavailable Alfonso Renteria MD Unavailable + [phone] Esha Grimm PA-C Primary Care Provider Radha Lomeli PATTERN MARKING SUPERVISOR BOARD SAW RUNNER Unavailable [phone] FrankieJelena OD Unavailable Pao Joseph RN Unavailable Unavailable Alfa Eshalincoln DOWC Unavailable [phone] Valery Veronica PA-C Unavailable [phone] Rey Tay MD Unavailable DuaneEvansximena STEVENS Unavailable Philip Dumont MD Unavailable [phone] Encounter Details Date Type Department Care Team (Late st Contact Info) Description 08/31/2023 MyC Medical Advice [facility] [address] [facility] [address] [place] [address] Amalia Reyes RN Social History [...] PHQ-2 Score 0 06/20/2023 [facility] - [...] exercise at this level? 30 min 03/10/2023 [place] Depression Scale Answer Date Recorded [place] Depression Score 5 01/14/2021 Last EPDS [...] Info) Description 11/01/2023 8:00 AM CDT Appointment [facility] [address] [place] [address] Lauren Claudio PA-C [address] [place], [place] [phone] 11/03/2023 8:00 AM CDT Office Visit [address] [phone] Valery Veronica PA-C [address] [place] [address] 11/29/2023 8:00 AM CDT Office Visit [address] [phone] Esha Grimm PA-C [address] [place] [address] 12/19/2023 11:30 AM CDT Hospital Encounter [facility] 909 [facility] 5th [place] [phone] Rocky Zepeda, [address] [place] [address] 12/19/2023 11:30 AM CDT - 12/19/2023 12:00 PM CDT Surgery [facility] 9[address] [facility] [address] 5th [place] [phone] Rocky Zepeda, DO 500 [facility] [place], [place] 0[address] Esophagoscopy, gastroscopy, duodenoscopy (EGD), combined 01/02/2024 8:00 AM CDT Office Visit [facility] [address] [place] [phone] Lauren Claudio PA-C [address] [place], [place] [phone] Kelli Perez MD [address] 383714 Scheduled Procedures Name Priority Associated Diagnoses Date/Ti ok ESOPHAGOGASTRODUODENOSCOPY Eosinophilic esophagitis Esophageal dysphagia 12/19/2023 11:30 AM CDT documented as of this encounter Visit Diagnoses Not on filedocumented in this encounter Additional Health Concerns Assessment Noted Time PHQ-9 Depression Total Score: 4 06/20/20 23 8:40 AM BELL SPINNER documented as of this encounter Care Teams Manager Battery Relationship Specialty Start Date End Date Esha Grimm PA-C [address] [place] [phone] PCP - General Family Medicine 05/04/23 Diana Desir, [facility] [address] [place] [address] Pharmacist Pharmacist 04/17/21 Rain Galaviz PA-C [address] [place] [address] [address] [place] [address] Physician Federal District Clerk Dermatology 04/28/21 Tavia Wyatt MD [address] [facility] [address] [facility] [place] [address] Dermatology 07/14/21 Erica Farrell APRN BOARD SAW RUNNER [address] [place], [place] 438[address] Nurse Practitioner Cardiovascular Disease 09/09/21 Rich Barrett MD 516 [facility] 9A [place] [address] Physician Ophthalmology 01/21/22 Neil Kent MD 500 [place], [place] 642345 Dermatology 02/24/22 [facility] 3033 [place], [place] 274846 Assigned MTM Pharmacist 04/07/22 Livan Sharif MD [address] [place] [address] Cardiovascular Disease 05/14/22 Catherine Cm MD [address] [facility] [place] [address] Cardiovascular Disease 07/21/22 Valery Veronica, PA-C [address] [place] [address] Physician Federal District Clerk Dermatology 07/21/22 Brea Quinn APRN BOARD SAW RUNNER 500 [place] [address] Nurse Practitioner Dermatology 09/21/22 Brea Quinn APRN BOARD SAW RUNNER 6401 [facility] [place] [address] Assigned Surgical Provider 10/09/22 [place] [address] [facility] [facility] 300 [place] [address] Assigned Musculoskeletal Provider 10/09/22 Alfonso Renteria MD 5775 [facility] 200 [place], [place] 856056 Assigned Neuroscience Provider 04/02/23 Radha Lomeli APRN BOARD SAW RUNNER [address] [place] 2399800 [place] [address] Assigned Heart and Vascular Provider 05/28/23 Jelena David OD [address] [facility] [place] [address] Ophthalmology 06/15/23 Pao Joseph, VJ Personal Advocate & Liaison (PAL) Nurse 08/01/23 Esha Grimm PA-C [address] [place] [phone] Assigned PCP 07/16/23 Valery Veronica PA-C 909 [place] [address] Physician Federal District Clerk Dermatology 09/19/23 Rey Tay MD [address] [place] [address] MD Gastroenterology 09/20/23 Rocky Zepeda DO [address] [place] [address] Physician Gastroenterology 09/20/23 Philip Dumont MD [address] [place] [address] Physician Ophthalmology 09/22/23 documented as of this encounter
--- OUTSIDE RECORDS SUMMARY | 2023-10-28 16:39 | XMS_ITS | Encounter Summary ---
Author Name Unknown Organization [place] Address [address] [place] [address] Care Team Providers Care Brass Polisher Name Role Phone ThangKendrickDiana T [facility] Unavailable Rain Galaviz-C Unavailable [phone] Tavia Wyatt MD Unavailable Unavailable Erica Farrell APRN SAFETY DEPOSIT SUPERVISOR Unavailable Rich Barrett MD Unavailable Neil Kent MD Unavailable Diana Desir [facility] Unavailable [phone] Livan Sharif MD Unavailable Catherine Cm MD Unavailable + Valery Veronica-C Unavailable [phone] Brea Quinn CHIEF SPECIALIST LEED SAFETY DEPOSIT SUPERVISOR Unavailable Brea Quinn CHIEF SPECIALIST LEED SAFETY DEPOSIT SUPERVISOR Unavailable Jose Francisco Johnson MD Unavailable Alfonso Renteria MD Unavailable + [phone] Esha Grimm PA-C Primary Care Provider Radha Lomeli CHIEF SPECIALIST LEED SAFETY DEPOSIT SUPERVISOR Unavailable Jelena David OD Unavailable Pao Joseph RN Unavailable Unavailable Esha Grimm PA-C Unavailable [phone] Reason for Visit * Reason Onset Date Comments Forms 08/04/2023 Encounter Details Date Type Department Care Team (Late st Contact Info) Description 08/04/2023 Telephone M [facility] [address] [place] [address] Esha Grimm PA-C [address] [place] [address] Forms Social History Tobacco Use [...] often do you attend chur ch or methodist services? 1 to 4 times [...] Answer Date Recorded PHQ-2 Score 0 06/20/2023 [place] of Occupat ional Health - Occupational Stress [...] exercise at this level? 30 min 03/10/2023 [place] Depression Scale Answer Date Recorded [place] Depression Score 5 01/14/2021 Last EPDS Self [...] 08/05/2023 9:07 AM CST Note sent through [employer]. Esha Grimm PA-C on 08/05/2023 at 9:07 AM POLISHER * Telephone Encounter - Isabelle Coppola RN - 08/04/2023 11:38 AM SLAB POLISHER Pt calling; states in last appointment a possible note was discussed for school Pended note Please review and upload to [employer] once signed. Isabelle Avendano RN on 08/04/2023 at 11:47 AM POLISHER documented in this encounter Plan of Treatment Upcoming Encounters Date Type Department Care Team (Late st Contact Info) Description 11/01/2023 8:[address] [facility] [address] [place] [address] Lauren Claudio PA-C [address] [place] [address] 11/03/2023 8:00 AM CDT Office Visit [address] [phone] Valery Veronica PA-C 909 [place] [address] 11/29/2023 8:00 AM CDT Office Visit [facility] [address] [place] [phone] Esha Grimm PA-C [address] [place] [phone] 12/19/2023 11:30 AM CDT Hospital Encounter [address] [phone] oRcky Zepeda DO 500 [place], [place] 154335 12/19/2023 11:30 AM CDT - 12/19/2023 12:00 PM CDT Surgery [address] [phone] Rocky Zepeda DO 500 [place], [place] 230955 Esophagoscopy, gastroscopy, duodenoscopy (EGD), combined 01/02/2024 8:00 AM CDT Office Visit [address] [phone] Lauren Claudio PA-C [address] [place], [place] [phone] Kelli Perez MD [address] [place] [address] 190674 Scheduled Procedures Name Priority Associated Diagnoses Date/Ti mi ESOPHAGOGASTRODUODENOSCOPY Eosinophilic esophagitis Esophageal dysphagia 12/19/2023 11:30 AM CDT documented as of this encounter Visit Diagnoses Not on filedocumented in this encounter Additional Health Concerns Assessment Noted Time PHQ-9 Depression Total Score: 4 06/20/20 23 8:40 AM SLAB POLISHER documented as of this encounter Care Teams Brass Polisher Relationship Specialty Start Date End Date Esha Grimm PA-C [address] [place] [phone] PCP - General Family Medicine 05/04/23 Diana Desir, [facility] [address] [place] [address] Pharmacist Pharmacist 04/17/21 Rain Galaviz PA-C [address] [place] [address] [address] [place] [address] Physician Production Line Solderer Dermatology 04/28/21 Tavia Wyatt MD [address] [place] [address] [address] [place] [facility] [place] [address] Dermatology 07/14/21 Erica Farrell, ARLENE SAFETY DEPOSIT SUPERVISOR [address] [place], [place] [address] Nurse Practitioner Cardiovascular Disease 09/09/21 Rich Barrett MD 516 [facility] 9A [place], [place] 08[address] Physician Ophthalmology 01/21/22 Neil Kent MD 500 [place], [place] 511315 Dermatology 02/24/22 Diana Desir, [facility] [address] [place] [address] Assigned MTM Pharmacist 04/07/22 Livan Sharif MD [address] [place] [address] Cardiovascular Disease 05/14/22 Catherine Cm MD 6405 [facility] [address] [place] [address] Cardiovascular Disease 07/21/22 Valery Veronica, PAUcheC [address] [place] [address] Physician Production Line Solderer Dermatology 07/21/22 Brea Quinn APRN SAFETY DEPOSIT SUPERVISOR 500 [place] [address] Nurse Practitioner Dermatology 09/21/22 Brea Quinn APRN SAFETY DEPOSIT SUPERVISOR [address] [place] [address] Assigned Surgical Provider 10/09/22 [place] [address] [address] Assigned Musculoskeletal Provider 10/09/22 Alfonso Renteria MD 5775 [facility] 200 [place], [place] [address]46 Assigned Neuroscience Provider 04/02/23 Radha Lomeli APRN SAFETY DEPOSIT SUPERVISOR [address] [place] [address] Assigned Heart and Vascular Provider 05/28/23 Jelena David OD 3[address] [facility] [place] [address] Ophthalmology 06/15/23 Pao Joseph, RN Personal Advocate & Liaison (PAL) Nurse 08/01/23 Esha Grimm, PAUcheC [address] [facility] [place] [phone] Assigned PCP 07/16/23 documented as of this encounter
--- OUTSIDE RECORDS SUMMARY | 2023-10-28 16:39 | XMS_ITS | Encounter Summary ---
Author Name Unknown Organization [place] Address [address] [place] [address] Care Team Providers Care Rigging Up Man Name Role Phone ThangKendrickDiana T [facility] Unavailable [phone] Rain Galaviz-C Unavailable Tavia Wyatt MD Unavailable Unavailable Erica Farrell APRN DRY CHAIN PULLER Unavailable Rich Barrett MD Unavailable Neil Kent MD Unavailable Diana Desir [facility] Unavailable [phone] Livan Sharif MD Unavailable Catherine Cm MD Unavailable + Valery Veronica-C Unavailable [phone] Brea Quinn AERIAL SURVEY TECHNICIAN DRY CHAIN PULLER Unavailable Brea Quinn AERIAL SURVEY TECHNICIAN DRY CHAIN PULLER Unavailable Jose Francisco Johnson MD Unavailable Alfonso Renteria MD Unavailable + [phone] Esha Grimm PA-C Primary Care Provider [phone] Radha Lomeli AERIAL SURVEY TECHNICIAN DRY CHAIN PULLER Unavailable Jelena David OD Unavailable Pao Joseph RN Unavailable Unavailable Esha Grimm PA-C Unavailable [phone] Reason for Visit * Reason Comments Other Entered automaticall y based on patient selection in [facility] [place]. Encounter Details Date Type Department Care Team (Late st Contact Info) Description 08/10/2023 10:30 AM DISTRICT CLAIMS MANAGER E-Visit [facility] [address] [place] [address] Esha Grimm PA-C [address] [place] [address] Other (Entered automatically based on [...] Answer Date Recorded PHQ-2 Score 0 06/20/2023 [facility] - Occupational Stress Questionnaire Answer Date [...] exercise at this level? 30 min 03/10/2023 [place] Depression Scale Answer Date Recorded [place] Depression Score 5 01/14/2021 Last EPDS Self [...] patient to see if she received the CarFin message associated with her e-visit yesterday? I'm not sure what testing TRACK CAR OPERATOR would be recommending-please see mychart note for recommendations. Thanks! Esha Grimm PA-C RICT CLAIMS MANAGER * Telephone Encounter - Esha Grimm PA-C - 08/10/2023 3:21 PM CST Provider E-Visit time total (minutes): 5 minutes RICT CLAIMS MANAGER documented in this encounter Plan of Treatment Upcoming Encounters Date Type Department Care Team (Late st Contact Info) Description 11/01/2023 8:00 AM CDT Appointment [facility] Imaging [address] [place] [phone] Lauren Claudio PA-C [address] [place] [address] 11/03/2023 8:00 AM CDT Office Visit [address] [phone] Valery Veronica PA-C 909 [place] [address] 11/29/2023 8:00 AM CDT Office Visit [facility] [address] [place] [phone] Esha Grimm PA-C [address] [place] [phone] 12/19/2023 11:30 AM CDT Hospital Encounter [address] 5th [place] [phone] Rocky Zepeda DO 500 [place], [place] 862605 12/19/2023 11:30 AM CDT - 12/19/2023 12:00 PM CDT Surgery [address] [phone] Rocky Zepeda DO 500 [place], [place] 267105 Esophagoscopy, gastroscopy, duodenoscopy (EGD), combined 01/02/2024 8:00 AM CDT Office Visit [facility] [address] [phone] Lauren Claudio PA-C [address] [place] [address] Kelli Perez MD [address] [place] [address] [phone] Scheduled Procedures Name Priority Associated Diagnoses Date/Ti vt ESOPHAGOGASTRODUODENOSCOPY Eosinophilic esophagitis Esophageal dysphagia 12/19/2023 11:30 AM CDT documented as of this encounter Visit Diagnoses Diagnosis Shakiness- Primary Abnormal involuntary movements Eosinophilic esophagitis Esophageal dysphagia Dysphagia, pharyngoesophageal phase documented in this encounter Additional Health Concerns Assessment Noted Time PHQ-9 Depression Total Score: 4 06/20/20 23 8:40 AM DISTRICT CLAIMS MANAGER documented as of this encounter Care Teams Rigging Up Man Relationship Specialty Start Date End Date Esha Grimm PA-C [address] [place] [address] PCP - General Family Medicine 05/04/23 Diana Desir, [facility] 303 3225 [place] [address] Pharmacist Pharmacist 04/17/21 Rain Galaviz PA-C [address] [place] [address] [address] [place] [address] Physician Bird Cage Assembler Dermatology 04/28/21 Tavia Wyatt MD [address] [place] [address] [address] [place] [address] Dermatology 07/14/21 Erica Farrell APRN DRY CHAIN PULLER 6405 [facility] [address] [place] [address] Nurse Practitioner Cardiovascular Disease 09/09/21 Rich Barrett MD 516 [facility] 9A [place], [place] 384555 Physician Ophthalmology 01/21/22 Neil Kent MD 500 [place], [place] 745255 Dermatology 02/24/22 Diana Desir, [facility] [address] [place] [address] Assigned MTM Pharmacist 04/07/22 Livan Sharif MD 6405 [facility] [address] [place] [address] Cardiovascular Disease 05/14/22 Catherine Cm MD [address] [facility] [address] [place] [address] Cardiovascular Disease 07/21/22 Valery Veronica, PA-C [address] [place] [address] 299485 Physician Bird Cage Assembler Dermatology 07/21/22 Brea Quinn APRN DRY CHAIN PULLER [address] [place] [address] 397505 Nurse Practitioner Dermatology 09/21/22 Brea Quinn APRN DRY CHAIN PULLER [facility] [place] [address] Assigned Surgical Provider 10/09/22 [place] [address] [place] [address] [address] Assigned Musculoskeletal Provider 10/09/22 Alfonso Renteria MD [address] 715576 Assigned Neuroscience Provider 04/02/23 Radha Lomeli APRN DRY CHAIN PULLER [address] [place] 953285 Assigned Heart and Vascular Provider 05/28/23 Jelena David OD 3305 [facility] [place] [address] MD Ophthalmology 06/15/23 Pao Joseph, RN Personal Advocate & Liaison (PAL) Nurse 08/01/23 Esha Grimm PAUcheC [address] [place] [address]709[address] Assigned PCP 07/16/23 documented as of this encounter
--- OUTSIDE RECORDS SUMMARY | 2023-10-28 16:39 | XMS_ITS | Encounter Summary ---
Author Name Unknown Organization [place] Address [address] [place] [address] Care Team Providers Care Sexer Name Role Phone ThangKendrickDiana T [facility] Unavailable Rain Galaviz-C Unavailable Tavia Wyatt MD Unavailable Unavailable Erica Farrell APRN DE ICER FINISHER Unavailable Rich Barrett MD Unavailable Neil Kent MD Unavailable Diana Desir [facility] Unavailable [phone] Livan Sharif MD Unavailable Catherine Cm MD Unavailable + Valery Veronica-C Unavailable [phone] Brea Quinn JOCKEY ROOM CUSTODIAN DE ICER FINISHER Unavailable [phone] Brea Quinn JOCKEY ROOM CUSTODIAN DE ICER FINISHER Unavailable Jose Francisco Johnson MD Unavailable Alfonso Renteria MD Unavailable + [phone] Esha Grimm PA-C Primary Care Provider [phone] Radha Lomeli JOCKEY ROOM CUSTODIAN DE ICER FINISHER Unavailable [phone] Jelena David OD Unavailable Pao Joseph RN Unavailable Unavailable Esha Grimm PA-C Unavailable [phone] Encounter Details Date Type Department Care Team (Late st Contact Info) Description 08/01/2023 MyC Medical Advice [facility] [address] [place] [address] Esha Grimm PA-C [id number] [place] [address] Social History Tobacco Use Types Packs/Day [...] How often do you attend chur or samaritan services? 1 to 4 times [...] Answer Date Recorded PHQ-2 Score 0 06/20/2023 [facility] [place] of Occupat ional Health - Occupational Stress [...] exercise at this level? 30 min 03/10/2023 [place] Depression Scale Answer Date Recorded [place] Depression Score 5 01/14/2021 Last EPDS Self [...] PM CST Esha Grimm PA-C- See pt's Hobobe message. Routed to PCP Pao Marcos RN PAL (Patient Advocate Liaison) [facility] LEATHER TRIMMER documented in this encounter Plan of Treatment Upcoming Encounters Date Type Department Care Team (Late st Contact Info) Description 11/01/2023 8:00 AM CDT Appointment [facility] Imaging 6401 [facility] [place] [phone] Lauren Claudio PA-C [address] [place], [place] [phone] 11/03/2023 8:00 AM CDT Office Visit [address] [phone] Valery Veronica PA-C [address] [place] [address] 058125 11/29/2023 8:00 AM CDT Office Visit [facility] [address] [place] [phone] Esha Grimm PA-C [address] [place] [phone] 12/19/2023 11:30 AM CDT Hospital Encounter [address] 5th [place] [phone] Rocky Zepeda, DO 500 [place], [place] 188095 12/19/2023 11:30 AM CDT - 12/19/2023 12:00 PM CDT Surgery [facility] 9[address] [facility] [address] 5th [place] [phone] Rocky Zepeda DO 500 [place] [address] Esophagoscopy, gastroscopy, duodenoscopy (EGD), combined 01/02/2024 8:00 AM CDT Office Visit [facility] [address] [place] [phone] Lauren Claudio PA-C [address] [place], [place] [phone] Kelli Perez MD [address] [place], [place] 070284 Scheduled Procedures Name Priority Associated Diagnoses Date/Ti ne ESOPHAGOGASTRODUODENOSCOPY Eosinophilic esophagitis Esophageal dysphagia 12/19/2023 11:30 AM CDT documented as of this encounter Visit Diagnoses Not on filedocumented in this encounter Additional Health Concerns Assessment Noted Time PHQ-9 Depression Total Score: 4 06/20/20 23 8:40 AM HAND LEATHER TRIMMER documented as of this encounter Care Teams Sexer Relationship Specialty Start Date End Date Esha Grimm PA-C [address] [place] [phone] PCP - General Family Medicine 05/04/23 Diana Desir, [facility] [address] [place] [address] Pharmacist Pharmacist 04/17/21 Rain Galaviz PA-C [address] [place] [address] [address] [place] [address] Physician Pantomimist Dermatology 04/28/21 Tavia Wyatt MD [address] [place] [address] [place] [address] Dermatology 07/14/21 Erica Farrell, JOCKEY ROOM CUSTODIAN DE ICER FINISHER [address] [place] [address] Nurse Practitioner Cardiovascular Disease 09/09/21 Rich Barrett MD [address] [place] [address] 9A [place], [place] 340665 Physician Ophthalmology 01/21/22 Neil Kent MD 500 [place], [place] 268995 Dermatology 02/24/22 Diana Desir, [facility] 3033 [place] [address] Assigned MTM Pharmacist 04/07/22 Livan Sharif MD [address] [address] [place] 787745 Cardiovascular Disease 05/14/22 Catherine Cm MD [address] [place] [address] Cardiovascular Disease 07/21/22 Valery Veronica PA-C 909 [place], [place] 117375 Physician Pantomimist Dermatology 07/21/22 Brea Quinn APRN DE ICER FINISHER 500 [place] [address] Nurse Practitioner Dermatology 09/21/22 Brea Quinn APRN DE ICER FINISHER 6401 [place], [place] 708192 Assigned Surgical Provider 10/09/22 [place] [address] [address] [facility] 300 [place], [place] 445657 Assigned Musculoskeletal Provider 10/09/22 Alfonso Renteria MD 5775 [facility] 200 [place], [place] [phone] Assigned Neuroscience Provider 04/02/23 Radha Lomeli APRN DE ICER FINISHER 6405 [facility] [address] [place] 250165 Assigned Heart and Vascular Provider 05/28/23 Jelena David OD 3305 [facility] [place] [address] Ophthalmology 06/15/23 Pao Joseph, RN Personal Advocate & Liaison (PAL) Nurse 08/01/23 Esha Grimm PA-C [address] [place] [phone] Assigned PCP 07/16/23 documented as of this encounter
--- OUTSIDE RECORDS SUMMARY | 2023-10-28 16:39 | XMS_ITS | Encounter Summary ---
Author Name Unknown Organization [place] Address [address] [place] [address] Care Team Providers Care Urologist Physician Name Role Phone ThangKendrickDiana T [facility] Unavailable Rain Galaviz-C Unavailable Tvaia Wyatt MD Unavailable Unavailable Erica Farrell APRN GENERAL INTERNIST AND PHYSICIAN LEADER Unavailable Rich Barrett MD Unavailable Neil Kent MD Unavailable Diana Desir [facility] Unavailable [phone] Livan Sharif MD Unavailable Catherine Cm MD Unavailable + Valery Veronica-C Unavailable [phone] Brea Quinn WRAPPER OFF GENERAL INTERNIST AND PHYSICIAN LEADER Unavailable [phone] Brea Quinn WRAPPER OFF GENERAL INTERNIST AND PHYSICIAN LEADER Unavailable Jose Francisco Johnson MD Unavailable Alfonso Renteria MD Unavailable + [phone] Esha Grimm PA-C Primary Care Provider Radha Lomeli WRAPPER OFF GENERAL INTERNIST AND PHYSICIAN LEADER Unavailable Jelena David OD Unavailable [phone] Pao Joseph RN Unavailable Unavailable Esha Grimm PA-C Unavailable [phone] Reason for Visit * Reason Onset Date Comments LAB REQUEST 08/10/2023 Encounter Details Date Type Department Care Team (Late st Contact Info) Description 08/10/2023 Telephone [facility] [address] [place] [address] Esha Grimm PA-C [address] [place] [address] LAB REQUEST Social History Tobacco [...] Answer Date Recorded PHQ-2 Score 0 06/20/2023 [facility] [place] [facility] - Occupational Stress Questionnaire Answer Date [...] exercise at this level? 30 min 03/10/2023 [place] Depression Scale Answer Date Recorded [place] Depression Score 5 01/14/2021 Last EPDS Self [...] Asiya Reddy RN - 08/10/2023 10:00 AM PC INSTALLATION ENGINEER Patient calling regarding ongoing symptoms of dizziness she has been having. States she noticed especially after she eats something with a lot of sugar in it she gets jittery and does not feel right.States she talked to her Flatwork Folder about it ant that provider told her that is not normal and she should have some fasting labs done. Patient wanting lab orders. Did advise she had normal glucose test 06/28/23. Advised she send E-Visit. Patient agrees with plan. Asiya Reddy RN INSTALLATION ENGINEER documented in this encounter Plan of Treatment Upcoming Encounters Date Type Department Care Team (Late st Contact Info) Description 11/01/2023 8:00 AM CDT Appointment [facility] [address] [place] [place] [phone] Lauren Claudio PA-C [address] [place] [address] 11/03/2023 8:00 AM CDT Office Visit [address] [phone] Valery Veronica PA-C 909 [place] [address] 11/29/2023 8:00 AM CDT Office Visit [facility] [address] [place] [phone] Esha Grimm PA-C [address] [place] [address] 12/19/2023 11:30 AM CDT Hospital Encounter [address] [phone] Rocky Zeepda DO 500 [place] [address] 12/19/2023 11:30 AM CDT - 12/19/2023 12:00 PM CDT Surgery [address] [phone] Rocky Zepeda, DO 500 [place], [place] 332505 Esophagoscopy, gastroscopy, duodenoscopy (EGD), combined 01/02/2024 8:00 AM CDT Office Visit [facility] [address] [phone] Lauren Claudio PA-C [address] [place] [address] Kelli Perez MD [address] [place] [address] 698644 Scheduled Procedures Name Priority Associated Diagnoses Date/Ti id ESOPHAGOGASTRODUODENOSCOPY Eosinophilic esophagitis Esophageal dysphagia 12/19/2023 11:30 AM CDT documented as of this encounter Visit Diagnoses Not on filedocumented in this encounter Additional Health Concerns Assessment Noted Time PHQ-9 Depression Total Score: 4 06/20/20 23 8:40 AM PC INSTALLATION ENGINEER documented as of this encounter Care Teams Urologist Physician Relationship Specialty Start Date End Date Esha Grimm PA-C [address] [place] [address] PCP - General Family Medicine 05/04/23 Diana Desir, [facility] [address] [place] [address] Pharmacist Pharmacist 04/17/21 Rain Galaviz PA-C [address] [place] [address] [address] [place] [address] Physician Historian Research Assistant Dermatology 04/28/21 Tavia Wyatt MD [address] [place] [address] [place] [address] Dermatology 07/14/21 Erica Farrell APRN GENERAL INTERNIST AND PHYSICIAN LEADER [address] [place] [address] Nurse Practitioner Cardiovascular Disease 09/09/21 Rich Barrett MD [address] [place] [address] 542685 Physician Ophthalmology 01/21/22 Neil Kent MD [address] [place] [address] 956145 Dermatology 02/24/22 Diana Desir, [facility] [address] [place] [address] Assigned MTM Pharmacist 04/07/22 Livan Sharif MD [address] [place] 590175 Cardiovascular Disease 05/14/22 Catherine mC MD [address] [facility] [address] [place] 134925 Cardiovascular Disease 07/21/22 Valery Veronica, PAUcheC 909 [place], [place] 615205 Physician Historian Research Assistant Dermatology 07/21/22 Brea Quinn APRN GENERAL INTERNIST AND PHYSICIAN LEADER 500 [place], [place] [phone] Nurse Practitioner Dermatology 09/21/22 Brea Quinn APRN GENERAL INTERNIST AND PHYSICIAN LEADER 6401 [facility] [place] 683182 Assigned Surgical Provider 10/09/22 [place] [address] [place], [place] 280427 Assigned Musculoskeletal Provider 10/09/22 Alfonso Renteria MD [address] [facility] 200 [place], [place] 152936 Assigned Neuroscience Provider 04/02/23 Radha Lomeli APRN GENERAL INTERNIST AND PHYSICIAN LEADER 6405 [facility] [address] [place] 015125 Assigned Heart and Vascular Provider 05/28/23 Jelena David OD 3305 [facility] [place] [address] Ophthalmology 06/15/23 Pao Joseph, RN Personal Advocate & Liaison (PAL) Nurse 08/01/23 Esha Grimm, PAUcheC [address] [place] [address]290683 Assigned PCP 07/16/23 documented as of this encounter
--- OUTSIDE RECORDS SUMMARY | 2023-10-28 16:39 | XMS_ITS | Encounter Summary ---
Author Name Unknown Organization [place] Address [address] [place] [address] Care Team Providers Care [employer] Rep Name Role Phone ThangKendrickDiana T [facility] Unavailable Rain Galaviz-C Unavailable Tavia Wyatt MD Unavailable Unavailable Erica Farrell APRN PRICING/SIGNAGE TEAM MEMBER Unavailable Rich Barrett MD Unavailable Neil Kent MD Unavailable Diana Desir [facility] Unavailable [phone] Livan Sharif MD Unavailable Catherine Cm MD Unavailable + Valery Veronica-C Unavailable [phone] Brea Quinn CASHIER COURTESY BOOTH PRICING/SIGNAGE TEAM MEMBER Unavailable Brea Quinn CASHIER COURTESY BOOTH PRICING/SIGNAGE TEAM MEMBER Unavailable Jose Francisco Johnson MD Unavailable Alfonso Renteria MD Unavailable + [phone] Esha Grimm PA-C Primary Care Provider Radha Lomeli CASHIER COURTESY BOOTH PRICING/SIGNAGE TEAM MEMBER Unavailable Jelena David OD Unavailable Pao Joseph RN Unavailable Unavailable Esha Grimm Adam LAYNE Unavailable [phone] Valery Veronica PA-C Unavailable [phone] Rey Tay MD Unavailable ZepedaRocky Unavailable Philip Dumont MD Unavailable [phone] Encounter Details Date Type Department Care Team (Late st Contact Info) Description 08/11/2023 [facility] Medical Advice [address] [address] Pao Joseph, RN Social History [...] 0 06/20/2023 [facility] of [facility]at [facility] - Occupational Stress Questionnaire [...] exercise at this level? 30 min 03/10/2023 [place] Depression Scale Answer Date Recorded [place] Depression Score 5 01/14/2021 Last EPDS Self [...] [facility] [address] [place] [address] Lauren Claudio PA-C [address] [place] [address] 11/03/2023 8:00 AM CDT Office Visit [address] [phone] Valery Veronica PA-C [address] [place] [address] 11/29/2023 8:00 AM CDT Office Visit [facility] [address] [place] [address] [phone] Esha Grimm PA-C [address] [place] [phone] 12/19/2023 11:30 AM CDT Hospital Encounter [facility] 909 [facility] 5th [place] [phone] Rocky Zepeda, [address] [place] [address] 12/19/2023 11:30 AM CDT - 12/19/2023 12:00 PM CDT Surgery [place] [address] [facility] SE 5th [place] [phone] Rocky Zepeda, DO 500 [facility] [place], [place] 638775 Esophagoscopy, gastroscopy, duodenoscopy (EGD), combined 01/02/2024 8:00 AM CDT Office Visit [facility] [address] [place] [phone] Lauren Claudio PA-C [address] [place] [address] Kelli Perez MD [address] [place] [address] 106 [place], [place] 375624 Scheduled Procedures Name Priority Associated Diagnoses Date/Ti ma ESOPHAGOGASTRODUODENOSCOPY Eosinophilic esophagitis Esophageal dysphagia 12/19/2023 11:30 AM CDT documented as of this encounter Visit Diagnoses Not on filedocumented in this encounter Additional Health Concerns Assessment Noted Time PHQ-9 Depression Total Score: 4 06/20/20 23 8:40 AM FIRMWARE ARCHITECT documented as of this encounter Care Teams [employer] Rep Relationship Specialty Start Date End Date Esha Grimm PA-C [address] [place] [phone] PCP - General Family Medicine 05/04/23 Diana Desir, [facility] [address] [place] [address] Pharmacist Pharmacist 04/17/21 Rain Galaviz PA-C [address] [place] [address] [address] [place] [address] Physician Wader Boot Top Assembler Dermatology 04/28/21 Tavia Wyatt MD [address] [facility] [address] [facility] [address] Dermatology 07/14/21 Erica Farrell APRN PRICING/SIGNAGE TEAM MEMBER [address] [place] [address] Nurse Practitioner Cardiovascular Disease 09/09/21 Rich Barrett MD 516 [facility] 9A [place] [address] Physician Ophthalmology 01/21/22 Neil Kent MD 500 [place], [place] 998155 Dermatology 02/24/22 [facility] 3033 [place], [place] 880786 Assigned MTM Pharmacist 04/07/22 Livan Sharif MD [address] [place] 9820[address] Cardiovascular Disease 05/14/22 Catherine Cm MD [address] [facility] [address] [place] [address] Cardiovascular Disease 07/21/22 Valery Veronica, PA-C [address] [place] [address] 167575 Physician Wader Boot Top Assembler Dermatology 07/21/22 Brea Quinn APRN PRICING/SIGNAGE TEAM MEMBER 500 [place] [address] Nurse Practitioner Dermatology 09/21/22 Brea Quinn APRN PRICING/SIGNAGE TEAM MEMBER 6401 [place] [address] Assigned Surgical Provider 10/09/22 [place] [address] [place] [facility] 300 [place] [address] Assigned Musculoskeletal Provider 10/09/22 Alfonso Renteria MD 5775 [facility] 200 [place], [place] 395846 Assigned Neuroscience Provider 04/02/23 Radha Lomeli APRN PRICING/SIGNAGE TEAM MEMBER [address] [address] Assigned Heart and Vascular Provider 05/28/23 Jelena David OD [address] [facility] [place] [address] Ophthalmology 06/15/23 Pao Joseph, VJ Personal Advocate & Liaison (PAL) Nurse 08/01/23 Esha Grimm PA-C [address] [place] [address]-637[address] Assigned PCP 07/16/23 Valery Veronica PA-C 909 [place] [address] Physician Wader Boot Top Assembler Dermatology 09/19/23 Rey Tay MD 909 [place] [address] Gastroenterology 09/20/23 Rocky Zepeda DO [address] [place] [address] Physician Gastroenterology 09/20/23 Philip Dumont MD [address] [place] [address] Physician Ophthalmology 09/22/23 documented as of this encounter
--- OUTSIDE RECORDS SUMMARY | 2023-10-28 16:39 | XMS_ITS | Encounter Summary ---
Author Name Unknown Organization [place] Address [address] [place] [address] Care Team Providers Care Bill Adjuster Name Role Phone ThangKendrickDiana T [facility] Unavailable Rain Galaviz-C Unavailable Tavia Wyatt MD Unavailable Unavailable Erica Farrell APRN FURNITURE FABRICATOR Unavailable Rich Barrett MD Unavailable Neil Kent MD Unavailable Diana Desir [facility] Unavailable [phone] Livan Sharif MD Unavailable Catherine Cm MD Unavailable + Valery Veronica-C Unavailable [phone] Brea Quinn MINE SUPERINTENDENT FURNITURE FABRICATOR Unavailable [phone] Brea Quinn MINE SUPERINTENDENT FURNITURE FABRICATOR Unavailable [phone] Jose Francisco Johnson MD Unavailable Alfonso Renteria MD Unavailable + [phone] Esha Grimm PA-C Primary Care Provider [phone] Radha Lomeli MINE SUPERINTENDENT FURNITURE FABRICATOR Unavailable Jelena David OD Unavailable [phone] Pao Joseph RN Unavailable Unavailable Esha Grimm PA-C Unavailable [phone] Valery Veronica PA-C Unavailable [phone] Rey Tay MD Unavailable ZepedaRocky woodard Unavailable Philip Dumont MD Unavailable [phone] Reason for Visit * Reason Onset Date Comments Call Back 08/01/2023 Encounter Details Date Type Department Care Team (Late st Contact Info) Description 08/01/2023 Telephone [facility] [id number] [place] [phone] Esha Grimm PA-C [id number] [place] [phone] Call Back Social History Tobacco Use [...] often do you attend chur ch or baptism services? 1 to 4 times [...] Date Recorded PHQ-2 Score 0 06/20/2023 [facility] - Occupational Stress Questionnaire Answer Date [...] exercise at this level? 30 min 03/10/2023 [place] Depression Scale Answer Date Recorded [place] Depression Score 5 01/14/2021 Last EPDS Self [...] Grimm PA-C on 08/02/2023 at 7:49 AM CAR REPAIRMAN * Telephone Encounter - Debbie Shahid - [...] we send this information to you in [facility] or would you prefer to receive a phone call?: No preference Okay to leave a detailed message?: Yes at Home number on file [phone] (home) CAR REPAIRMAN documented in this encounter Plan of Treatment Upcoming Encounters Date Type Department Care Team (Late st Contact Info) Description 11/01/2023 8:00 AM CDT Appointment [facility] [address] [place] [address] Lauren Claudio PA-C [address] [place], [place] [phone] 11/03/2023 8:00 AM CDT Office Visit [facility] 830 [place] [phone] Valery Veronica PA-C 909 [place] [address] 11/29/2023 8:00 AM CDT Office Visit [facility] [address] [place] [phone] Esha Grimm PA-C [id number] [place] [phone] 12/19/2023 11:30 AM CDT Hospital Encounter [address] [phone] Rocky Zepeda DO 500 [place], [place] 467785 12/19/2023 11:30 AM CDT - 12/19/2023 12:00 PM CDT Surgery [address] [phone] Rocky Zepeda DO 500 [place], [place] 260455 Esophagoscopy, gastroscopy, duodenoscopy (EGD), combined 01/02/2024 8:00 AM CDT Office Visit [facility] [address] [address] Lauren Claudio PA-C [address] [place], [place] [phone] Kelli Perez MD [address] [place] [address] Scheduled Procedures Name Priority Associated Diagnoses Date/Ti ma ESOPHAGOGASTRODUODENOSCOPY Eosinophilic esophagitis Esophageal dysphagia 12/19/2023 11:30 AM CDT documented as of this encounter Visit Diagnoses Not on filedocumented in this encounter Additional Health Concerns Assessment Noted Time PHQ-9 Depression Total Score: 4 06/20/20 23 8:40 AM RAIL CAR REPAIRMAN documented as of this encounter Care Teams Bill Adjuster Relationship Specialty Start Date End Date Esha Grimm PA-C [address] [place] [phone] PCP - General Family Medicine 05/04/23 Diana Desir, [facility] [address] [place], [place] 4240[address] Pharmacist Pharmacist 04/17/21 Rain Galaviz PA-C [address] [place] [address] [address] [place] [address] Physician Director Pharmaceutical Dermatology 04/28/21 Tavia Wyatt MD [address] [place] [address] [address] [place] [address] Dermatology 07/14/21 Erica Farrell APRN FURNITURE FABRICATOR 6405 [facility] [address] [place] [address] Nurse Practitioner Cardiovascular Disease 09/09/21 Rich Barrett MD 516 [facility] [place], [place] 552055 Physician Ophthalmology 01/21/22 Neil Kent MD 500 [place] [address] Dermatology 02/24/22 Diana Desir, [facility] 3033 [place] [address] Assigned [place] Pharmacist 04/07/22 Livan Sharif MD [address] [facility] [address] [place], [place] 744345 Cardiovascular Disease 05/14/22 Catherine Cm MD 6405 [facility] [address] 093445 Cardiovascular Disease 07/21/22 Valery Veronica, PA-C 909 [place], [place] 071235 Physician Director Pharmaceutical Dermatology 07/21/22 Brea Quinn APRN FURNITURE FABRICATOR 500 [place] [address] Nurse Practitioner Dermatology 09/21/22 Brea Quinn APRN FURNITURE FABRICATOR 6401 [place] [address] Assigned Surgical Provider 10/09/22 oJse [place] [id number] [place] [address] [address] [place] [address] Assigned Musculoskeletal Provider 10/09/22 Alfonso Renteria MD [address] [facility] 200 [place] [address] Assigned Neuroscience Provider 04/02/23 Radha Lomeli APRN FURNITURE FABRICATOR 6405 [facility] [address] [place], [place] 336505 Assigned Heart and Vascular Provider 05/28/23 Jelena David OD [address] [facility] [place] [address] Ophthalmology 06/15/23 Pao Joseph, VJ Personal Advocate & Liaison (PAL) Nurse 08/01/23 Esha Grimm PA-C [address] [place] [phone] Assigned PCP 07/16/23 Valery Veronica PA-C 9 [place], [place] 542465 Physician Director Pharmaceutical Dermatology 09/19/23 Rey Tay MD 909 [place], [place] 802405 Gastroenterology 09/20/23 Rocky Zepeda DO [address] [place] [address] [phone] Physician Gastroenterology 09/20/23 Philip Dumont MD [address] [place] [address] Physician Ophthalmology 09/22/23 documented as of this encounter
--- OUTSIDE RECORDS SUMMARY | 2023-10-28 16:39 | XMS_ITS | Encounter Summary ---
Author Name Unknown Organization [place] Address [address] [place] [address] Care Team Providers Care Gamma Ray Operator Name Role Phone ThangKendrickDiana T [facility] Unavailable Rain Galaviz-C Unavailable Tavia Wyatt MD Unavailable Unavailable Erica Farrell APRN STUCCO LABORER Unavailable Rich Barrett MD Unavailable Neil Kent MD Unavailable Diana Desir [facility] Unavailable [phone] Livan Sharif MD Unavailable Catherine Cm MD Unavailable + Valery Veronica-C Unavailable [phone] Brea Quinn SCREEN PRINTING LOADER UNLOADER STUCCO LABORER Unavailable Brea Quinn SCREEN PRINTING LOADER UNLOADER STUCCO LABORER Unavailable Jose Francisco Johnson MD Unavailable Alfonso Renteria MD Unavailable + [phone] Esha Grimm PA-C Primary Care Provider [phone] Radha Lomeli SCREEN PRINTING LOADER UNLOADER STUCCO LABORER Unavailable Jelena David OD Unavailable Pao Joseph RN Unavailable Unavailable Esha Grimm PA-C Unavailable Reason for Visit * Diagnostic Imaging XR (Routine) - Pending Review Specialty Diagnoses / Procedures Referred By Contparviz t Referred To Contact Radiology. Diagnoses Finger pain, right Procedures XR Hand Right G/E 3 Views Esha Grimm PA-C [address] [place] [address] Referral ID Status Reason Start Date Expiration Date V isits Requested Visits Authorized [id number] Pending Review 08/01/2023 07/31/2024 1 1 Encounter Details Date Type Department Care Team (Latest Contact Info) Description 08/01/2023 9:00 AM BOTTLE HOUSE PUMPER Ancillary Procedure [address] [phone] Esha Grimm PA-C [address] [place] [address] Finger pain, right Social History [...] often do you attend chur ch or confucianist services? 1 to 4 times [...] Date Recorded PHQ-2 Score 0 06/20/2023 [facility] - Occupational [...] exercise at this level? 30 min 03/10/2023 [place] Depression Scale Answer Date Recorded [place] Depression Score 5 01/14/2021 Last EPDS [...] Info) Description 11/01/2023 8:00 AM CDT Appointment [facility] [address] [facility] [place] [address] Lauren Claudio PA-C [address] [place], [place] [phone] 11/03/2023 8:00 AM CDT Office Visit [address] [phone] Valery Veronica PA-C [address] [place] [address] 11/29/2023 8:00 AM CDT Office Visit [facility] [address] [place] [phone] Esha Grimm PA-C [address] [place] [phone] 12/19/2023 11:30 AM CDT Hospital Encounter [address] [place] [phone] Rocky Zepeda, 500 [place] [address] 12/19/2023 11:30 AM CDT - 12/19/2023 12:00 PM CDT Surgery [facility] 909 [facility] 5th [place] [phone] ZepedaMarimarRocky, DO 500 [place] [address] Esophagoscopy, gastroscopy, duodenoscopy (EGD), combined 01/02/2024 8:00 AM CDT Office Visit [facility] [place] [address] [place] [phone] Lauren Claudio PAUcheC [address] [place] [address] [phone] Kelli Perez MD [address] [place] [address] 768044 Scheduled Procedures Name Priority Associated Diagnoses Date/Ti ca ESOPHAGOGASTRODUODENOSCOPY Eosinophilic esophagitis Esophageal dysphagia 12/19/2023 11:30 AM CDT documented as of this encounter Procedures Procedure Name Priority Date/Time Associated Diagnosis Comments XR HAND RIGHT G/E 3 VIEWS Routine 08/01/2023 9:04 AM BOTTLE HOUSE PUMPER Finger pain, right documented in this encounter Results * XR Hand Right G/E 3 Views (08/01/2023 9:04 AM BOTTLE HOUSE PUMPER) Anatomical Region Laterality Modality Hand, Wrist Right Computed Radiogr aphy Impressions 08/01/2023 10:59 AM BOTTLE HOUSE PUMPER IMPRESSION: The right hand is negative for fracture or dislocation. No erosive changes. JASON ALVARADO MD SYSTEM ID: [id number] Narrative 08/01/2023 10:59 AM BOTTLE HOUSE PUMPER XR HAND RIGHT G/E 3 VIEWS 08/01/2023 9:04 AM HISTORY: Finger pain, right COMPARISON: None. Procedure Note Jason Alvarado MD - 08/01/2023 XR HAND RIGHT G/E 3 VIEWS 08/01/2023 9:04 AM HISTORY: Finger pain, right COMPARISON: None. IMPRESSION: The right hand is negative for fracture or dislocation. No erosive changes. JASON ALVARADO MD SYSTEM ID: [id number] Esha Grimm PA-C IMG DIAGNOSTIC IMAGI NG ORDERABLES documented in this encounter Visit Diagnoses Diagnosis Finger pain, right Pain in limb Eosinophilic esophagitis Esophageal dysphagia Dysphagia, pharyngoesophageal phase documented in this encounter Additional Health Concerns Assessment Noted Time PHQ-9 Depression Total Score: 4 06/20/20 23 8:40 AM BOTTLE HOUSE PUMPER documented as of this encounter Care Teams Gamma Ray Operator Relationship Specialty Start Date End Date Esha Grimm PA-C [address] [place] [address] PCP - General Family Medicine 05/04/23 Diana Desir, [facility] 3033 [place] [address] Pharmacist Pharmacist 04/17/21 Rain Galaviz PA-C [address] [place] [address] [address] [place] [address] Physician Special Client Bus Driver Dermatology 04/28/21 Tavia Wyatt MD [address] [place] [address] [address] [place] [address] Dermatology 07/14/21 Erica Farrell APRN STUCCO LABORER [address] [address] [place], [place] 962275 Nurse Practitioner Cardiovascular Disease 09/09/21 Rich Barrett MD [address] [facility] [place], [place] 765[address] Physician Ophthalmology 01/21/22 Neil Kent MD 500 [place], [place] 095585 Dermatology 02/24/22 Diana Desir, [facility] 30[address] [place], [place] 210046 Assigned [facility] Pharmacist 04/07/22 Livan Sharif MD [address] [place] [address] Cardiovascular Disease 05/14/22 Catherine Cm MD [address] [facility] [place]00 [place] [address] Cardiovascular Disease 07/21/22 Valery Veronica, PA-C 909 [place], [place] 443235 Physician Special Client Bus Driver Dermatology 07/21/22 Brea Quinn APRN STUCCO LABORER 500 [place], [place] 016815 Nurse Practitioner Dermatology 09/21/22 Brea Quinn APRN STUCCO LABORER 6401 [facility] [place], [place] 865472 Assigned Surgical Provider 10/09/22 [place] [address] [place] [address] Assigned Musculoskeletal Provider 10/09/22 Alfonso Renteria MD [address] [facility] 200 [place], [place] 646456 Assigned Neuroscience Provider 04/02/23 Radha Lomeli APRN STUCCO LABORER [address] [place] 528845 Assigned Heart and Vascular Provider 05/28/23 Jelena David OD 3305 [facility] [place] [phone] Ophthalmology 06/15/23 Pao Joseph, RN Personal Advocate & Liaison (PAL) Nurse 08/01/23 Esha Grimm PAUcheC [address] [place] [phone] Assigned PCP 07/16/23 documented as of this encounter
--- OUTSIDE RECORDS SUMMARY | 2023-10-28 16:39 | XMS_ITS | Encounter Summary ---
Author Name Unknown Organization [facility] Address [address] [place] [address] Care Team Providers Care Auto Body Repairer Name Role Phone ThangKendrickDiana T [facility] Unavailable Rain Galaviz-C Unavailable Tavia Wyatt MD Unavailable Unavailable Erica Farrell APRN TIE UP WORKER Unavailable Rich Barrett MD Unavailable Neil Kent MD Unavailable Diana Desir [facility] Unavailable [phone] Livan Sharif MD Unavailable Catherine Cm MD Unavailable + Valery Veronica-C Unavailable [phone] Brea Quinn INSPECTOR WEIGHTS AND MEASURES TIE UP WORKER Unavailable Brea Quinn INSPECTOR WEIGHTS AND MEASURES TIE UP WORKER Unavailable Jose Francisco Johnson MD Unavailable Alfonso Renteria MD Unavailable + [phone] Esha Grimm PA-C Primary Care Provider Radha Lomeli INSPECTOR WEIGHTS AND MEASURES TIE UP WORKER Unavailable Jelena David OD Unavailable Pao Joseph RN Unavailable Unavailable Esha Grimm PA-C Unavailable [phone] Valery Veronica PA-C Unavailable [phone] Rey Tay MD Unavailable ZepedaRocky woodard Unavailable Philip Dumont MD Unavailable [phone] Reason for Visit * Reason Onset Date Comments Outreach 08/01/2023 Encounter Details Date Type Department Care Team (Late st Contact Info) Description 08/01/2023 [facility] Medical Advice [facility] [address] [place] [phone] Esha Grimm PA-C [address] [place] [phone] Outreach Social History Tobacco Use Types [...] Answer Date Recorded PHQ-2 Score 0 06/20/2023 [facility] - Occupational Stress Questionnaire Answer Date [...] exercise at this level? 30 min 03/10/2023 [place] Depression Scale Answer Date Recorded [place] Depression Score 5 01/14/2021 Last EPDS Self [...] 08/01/2023 2:31 PM CST Esha Grimm PA-C- FYCira. See pt's GeneTex messages. Routed to PCP Pao Marcos RN PAL (Patient Advocate Liaison) [facility] APEUTIC SUPPORT STAFF documented in this encounter Plan of Treatment Upcoming Encounters Date Type Department Care Team (Late st Contact Info) Description 11/01/2023 8:00 AM CDT Appointment [facility] [address] [place] [phone] Lauren Claudio PA-C [address] [place] [address] [phone] 11/03/2023 8:00 AM CDT Office Visit [address] [phone] Valery Veronica PA-C 909 [place] [address] 11/29/2023 8:00 AM CDT Office Visit [facility] [address] [place] [phone] Esha Grimm PA-C [address] [place] [phone] 12/19/2023 11:30 AM CDT Hospital Encounter [address] 5th [place] [phone] Rocky Zepeda DO 500 [place] [address] 12/19/2023 11:30 AM CDT - 12/19/2023 12:00 PM CDT Surgery [address] [phone] Rocky Zepeda DO 500 [place], [place] 114905 Esophagoscopy, gastroscopy, duodenoscopy (EGD), combined 01/02/2024 8:00 AM CDT Office Visit [address] [address] Lauren Claudio PA-C [address] [place], [place] [phone] Kelli Perez MD [address] [place] [address] [phone] Scheduled Procedures Name Priority Associated Diagnoses Date/Ti ca ESOPHAGOGASTRODUODENOSCOPY Eosinophilic esophagitis Esophageal dysphagia 12/19/2023 11:30 AM CDT documented as of this encounter Visit Diagnoses Not on filedocumented in this encounter Additional Health Concerns Assessment Noted Time PHQ-9 Depression Total Score: 4 06/20/20 23 8:40 AM THERAPEUTIC SUPPORT STAFF documented as of this encounter Care Teams Auto Body Repairer Relationship Specialty Start Date End Date Esha Grimm PA-C [address] [place] [phone] PCP - General Family Medicine 05/04/23 Diana Desir, [facility] [address] [place] [address] Pharmacist Pharmacist 04/17/21 Rain Galaviz PA-C [address] [place] [address] [address] [place] [address] Physician Steel Engraver Dermatology 04/28/21 Tavia Wyatt MD [address] [place] [address] [place] [address] Dermatology 07/14/21 Erica Farrell APRN [facility] [address] [place] [address] Nurse Practitioner Cardiovascular Disease 09/09/21 Rich Barrett MD [address] 998365 Physician Ophthalmology 01/21/22 Neil Kent MD 500 [place], [place] 672085 Dermatology 02/24/22 Diana Desir, [facility] [address] [place] [address] Assigned MTM Pharmacist 04/07/22 Livan Sharif MD [address] [place] [address] Cardiovascular Disease 05/14/22 Catherine Cm MD 6405 [facility] [address] [place] [address] Cardiovascular Disease 07/21/22 Valery Veronica, PA-C [address] [place] [address] Physician Steel Engraver Dermatology 07/21/22 Brea Quinn APRN TIE UP WORKER [address] [place] [address] Nurse Practitioner Dermatology 09/21/22 Brea Quinn APRN TIE UP WORKER 6401 [place] [address] Assigned Surgical Provider 10/09/22 [place] [address] [place] [address] Assigned Musculoskeletal Provider 10/09/22 Alfonso Renteria MD 5775 [facility] 200 [place] [address] Assigned Neuroscience Provider 04/02/23 Radha Lomeli APRN TIE UP WORKER [address] [address] [place] 289825 Assigned Heart and Vascular Provider 05/28/23 Jelena David [place] [address] [facility] [place] [address] MD Ophthalmology 06/15/23 Pao Joseph, RN Personal Advocate & Liaison (PAL) Nurse 08/01/23 Esha Grimm PA-C [address] [place] [phone] Assigned PCP 07/16/23 Valery Veronica PA-C 9 [place], [place] 669415 Physician Steel Engraver Dermatology 09/19/23 Rey Tay MD [address] [place] [address] 190675 Gastroenterology 09/20/23 Rokcy Zepeda DO [address] [place] [address] 661035 Physician Gastroenterology 09/20/23 Philip Dumont MD [address] [place] [address] 625765 Physician Ophthalmology 09/22/23 documented as of this encounter
--- OUTSIDE RECORDS SUMMARY | 2023-10-28 16:39 | XMS_ITS | Encounter Summary ---
Author Name Unknown Organization [facility] Address [address] [place] [address] Care Team Providers Care Barrel Charrer Helper Name Role Phone ThangKendrickDiana T [facility] Unavailable Rain Galaviz-C Unavailable [phone] Tavia Wyatt MD Unavailable Unavailable Erica Farrell APRN COLLATOR OPERATOR Unavailable Rich Barrett MD Unavailable Neil Kent MD Unavailable Diana Desir [facility] Unavailable [phone] Livan Sharif MD Unavailable Catherine Cm MD Unavailable + Valery Veronica-C Unavailable [phone] Brea Quinn COASTAL TUG MATE COLLATOR OPERATOR Unavailable [phone] Brea Quinn COASTAL TUG MATE COLLATOR OPERATOR Unavailable Jose Francisco Johnson MD Unavailable Alfonso Renteria MD Unavailable + [phone] Esha Grimm PA-C Primary Care Provider Radha Lomeli COASTAL TUG MATE COLLATOR OPERATOR Unavailable Jelena David Radha OD Unavailable Pao Joseph RN Unavailable Unavailable Esha Grimm PA-C Unavailable [phone] Valery Veronica PA-C Unavailable Rey Tay MD Unavailable Duane Rockyanne STEVENS Unavailable Philip Dumont MD Unavailable [phone] Encounter Details Date Type Department Care Team (Late st Contact Info) Description 08/04/2023 [facility] Medical Advice [address] [address] Diana Desir, [facility] [address] [place] [address] Social History Tobacco Use Types [...] 03/10/2023 How often do you attend [facility] or jainism services? 1 to 4 times [...] Answer Date Recorded PHQ-2 Score 0 06/20/2023 [facility] - Occupational Stress Questionnaire [...] exercise at this level? 30 min 03/10/2023 [place] Depression Scale Answer Date Recorded [place] Depression Score 5 01/14/2021 Last EPDS Self [...] Info) Description 11/01/2023 8:00 AM CDT Appointment [facility] [address] [place] [address] Lauren Claudio PA-C [address] [place], [place] [phone] 11/03/2023 8:00 AM CDT Office Visit [address] [phone] Valery Veronica PA-C [address] [place] [address] 11/29/2023 8:00 AM CDT Office Visit [facility] [address] [place] [phone] Esha Grimm PA-C [address] [place] [phone] 12/19/2023 11:30 AM CDT Hospital Encounter [facility] 909 [facility] 5th [place] [phone] Rocky Zepeda DO 500 [place] [address] 12/19/2023 11:30 AM CDT - 12/19/2023 12:00 PM CDT Surgery [facility] 909 [facility] [address] 5th [place] [phone] Rocky Zepeda, DO 500 [facility] [place], [place] 0[address] Esophagoscopy, gastroscopy, duodenoscopy (EGD), combined 01/02/2024 8:00 AM CDT Office Visit [facility] [address] [place] [phone] Lauren Claudio PA-C [address]114 [place], [place] [phone] Kelli Perez MD [address] [place], [place] [address]E [facility] 106 [place], [place] 6[address]24 Scheduled Procedures Name Priority Associated Diagnoses Date/Ti mn ESOPHAGOGASTRODUODENOSCOPY Eosinophilic esophagitis Esophageal dysphagia 12/19/2023 11:30 AM CDT documented as of this encounter Visit Diagnoses Not on filedocumented in this encounter Additional Health Concerns Assessment Noted Time PHQ-9 Depression Total Score: 4 06/20/20 23 8:40 AM BUSINESS SERVICES TECH documented as of this encounter Care Teams Barrel Charrer Helper Relationship Specialty Start Date End Date Esha Grimm PA-C [address] [place] [phone] PCP - General Family Medicine 05/04/23 Diana Desir [facility] 3033 [place] [address] Pharmacist Pharmacist 04/17/21 Rain Galaviz PA-C [address] [place] [address] [address] [place] [address] Physician Cop Examiner Dermatology 04/28/21 Tavia Wyatt MD [address] [place] [address] [place]NUTSON [address] Dermatology 07/14/21 Erica Farrell APRN COLLATOR OPERATOR [address] [place] [address] Nurse Practitioner Cardiovascular Disease 09/09/21 Rich Barrett MD [address] [place] [address] 566585 Physician Ophthalmology 01/21/22 Neil Kent MD [address] [place] [address] 928365 Dermatology 02/24/22 [facility] [address] [place] [address] 821706 Assigned [place] Pharmacist 04/07/22 Livan Sharif MD [address], [facility] [place] [place] [address] Cardiovascular Disease 05/14/22 Catherine Cm MD [address] [facility] [place] 427795 Cardiovascular Disease 07/21/22 Valery Veronica, PA-C [address] [place] [address] 598685 Physician Cop Examiner Dermatology 07/21/22 Brea Quinn APRN COLLATOR OPERATOR 500 [place], [place] 635505 Nurse Practitioner Dermatology 09/21/22 Brea Quinn APRN COLLATOR OPERATOR 6401 [place], [place] 815912 Assigned Surgical Provider 10/09/22 [place] [address] 198607 Assigned Musculoskeletal Provider 10/09/22 Alfonso Renteria MD 5775 [facility] 200 [place], [place] 394526 Assigned Neuroscience Provider 04/02/23 Radha Lomeli APRN COLLATOR OPERATOR [address] 172985 Assigned Heart and Vascular Provider 05/28/23 Jelena David OD [address] [facility] [address] [place] [phone] Ophthalmology 06/15/23 Pao Joseph, RN Personal Advocate & Liaison (PAL) Nurse 08/01/23 Esha Grimm PA-C [address] [place] [phone] Assigned PCP 07/16/23 Valery Veronica PA-C 9 [place] [address] Physician Cop Examiner Dermatology 09/19/23 Rey Tay MD 9 [place] [address] Gastroenterology 09/20/23 Rocky Zepeda DO [address] [place] [address] 665475 Physician Gastroenterology 09/20/23 Philip Dumont MD [address] [place] [address] 743445 Physician Ophthalmology 09/22/23 documented as of this encounter
--- OUTSIDE RECORDS SUMMARY | 2023-10-28 16:39 | XMS_ITS | Encounter Summary ---
Author Name Unknown Organization [facility] Address [address] [place] [address] Care Team Providers Care Gas Compressor Operator Name Role Phone ThangKendrickDiana T [facility] Unavailable Rain Galaviz-C Unavailable Tavia Wyatt MD Unavailable Unavailable Erica Farrell APRN SENIOR C SOFTWARE ENGINEER Unavailable Rich Barrett MD Unavailable Neil Kent MD Unavailable Diana Desir [facility] Unavailable [phone] Livan Sharfi MD Unavailable Catherine Cm MD Unavailable + Valery Veronica-C Unavailable [phone] Brea Quinn WOOD LATHE OPERATOR SENIOR C SOFTWARE ENGINEER Unavailable Brea Quinn WOOD LATHE OPERATOR SENIOR C SOFTWARE ENGINEER Unavailable Jose Francisco Johnson MD Unavailable Alfonso Renteria MD Unavailable + [phone] Esha Grimm PA-C Primary Care Provider Radha Lomeli WOOD LATHE OPERATOR SENIOR C SOFTWARE ENGINEER Unavailable FrankieJelena OD Unavailable Pao Joseph RN Unavailable Unavailable Esha GrimmC Unavailable [phone] Reason for Visit * Reason Comments Medication Therapy Management Encounter Details Date Type Department Care Team (Late st Contact Info) Description 08/24/2023 4:00 PM QI SPECIALIST Virtual Visit [address] [address] Diana Desir, [facility] 3030 [place], [place] [phone] Anxiety (Primary Dx); Moderate major depression (H) [...] often do you attend chur ch or christian services? 1 to 4 times per year 03/10/2023 Do you belong to any clubs o r organizations such as taoist groups, unions, fraternal or athletic groups, [...] Answer Date Recorded PHQ-2 Score 0 06/20/2023 [facility] of Occupat ional Health [...] exercise at this level? 30 min 03/10/2023 [place] Depression Scale Answer Date Recorded [place] Depression Score 5 01/14/2021 Last EPDS Self [...] this encounter Progress Notes * Diana Desir, [facility] - 08/24/2023 4:00 PM CST Medication Therapy [...] summary of these recommendations was sent via Incont. Diana Desir, PharmD, [facility] Medication Therapy Management Provider, [facility] [phone] Telemedicine Visit Details Type of service: Telephone visit Start Time: 4:20 PM End Time: 4:28 PM Medication Therapy Recommendations No medication therapy recommendations to display SPECIALIST documented in this encounter Plan of Treatment Upcoming Encounters Date Type Department Care Team (Late st Contact Info) Description 11/01/2023 8:00 AM CDT Appointment [facility] [address] [place] [address] Lauren Claudio PA-C [address] [place], [place] [phone] 11/03/2023 8:00 AM CDT Office Visit [address] [phone] Valery Veronica PA-C 909 [place] [address] 11/29/2023 8:00 AM CDT Office Visit [facility] [address] [place] [phone] Esha Grimm PA-C [address] [place] [address]122083 12/19/2023 11:30 AM CDT Hospital Encounter [address] [phone] Rocky Zepeda DO 500 [place], [place] 982455 12/19/2023 11:30 AM CDT - 12/19/2023 12:00 PM CDT Surgery [address] [phone] Rocky Zepeda DO 500 [place], [place] 801245 Esophagoscopy, gastroscopy, duodenoscopy (EGD), combined 01/02/2024 8:00 AM CDT Office Visit [facility] [address] [place] [phone] Lauren Claudio PA-C [address] [place], [place] [phone] Kelli Perez MD [address] [place] [address] 197324 Scheduled Procedures Name Priority Associated Diagnoses Date/Ti [...] Total Score: 4 06/20/20 23 8:40 AM QI SPECIALIST documented as of this encounter Care Teams Gas Compressor Operator Relationship Specialty Start Date End Date Esha Grimm PA-C [address] [place] [address]183 PCP - General Family Medicine 05/04/23 Diana Desir, [facility] [address] [place] [address] Pharmacist Pharmacist 04/17/21 Rain Galaviz PA-C [address] [place] [address] [address] [place] [address] Physician Shuttle Route Vehicle Operator Dermatology 04/28/21 Tavia Wyatt MD [address] [place] [address] [place] [address] Dermatology 07/14/21 Erica Farrell APRN SENIOR C SOFTWARE ENGINEER 6405 [facility] [address] [place] [address] Nurse Practitioner Cardiovascular Disease 09/09/21 Rich Barrett MD 516 [facility] 9A [place], [place] 398405 Physician Ophthalmology 01/21/22 Neil Kent MD 500 [place], [place] 039995 Dermatology 02/24/22 Diana Desir, [facility] [address] [place] [address] Assigned MTM Pharmacist 04/07/22 Livan Sharif MD [address], [facility] [address] [place] [address] Cardiovascular Disease 05/14/22 Catherine Cm MD [address] [facility] [address] [place] [address] Cardiovascular Disease 07/21/22 Valery Veronica, PAUcheC [address] [place] [address] 269425 Physician Shuttle Route Vehicle Operator Dermatology 07/21/22 Brea Quinn APRN SENIOR C SOFTWARE ENGINEER 500 [place], [place] 424275 Nurse Practitioner Dermatology 09/21/22 Brea Quinn APRN SENIOR C SOFTWARE ENGINEER 6401 [facility] [place], [place] 569162 Assigned Surgical Provider 10/09/22 [place] [address] [place] [facility] 300 [place] [address] Assigned Musculoskeletal Provider 10/09/22 Alfonso Renteria MD 5775 [facility] 200 [place], [place] 281666 Assigned Neuroscience Provider 04/02/23 Radha Lomeli APRN SENIOR C SOFTWARE ENGINEER [address] [place] [address] Assigned Heart and Vascular Provider 05/28/23 Jelena David OD [address] [place] [address] Ophthalmology 06/15/23 Pao Joseph, VJ Personal Advocate & Liaison (PAL) Nurse 08/01/23 Esha Grimm, PA-C 11487 [place] [phone] Assigned PCP 07/16/23 documented as of this encounter
--- OUTSIDE RECORDS SUMMARY | 2023-10-28 16:39 | XMS_ITS | Encounter Summary ---
Author Name Unknown Organization [facility] Address [address] [place] [address] Care Team Providers Care Special Education Director Name Role Phone ThangKendrickDiana T [facility] Unavailable Rain Galaviz-C Unavailable Tavia Wyatt MD Unavailable Unavailable Erica Farrell APRN SOLAR SYSTEMS DESIGNER Unavailable Rich Barrett MD Unavailable Neil Kent MD Unavailable Diana Desir [facility] Unavailable [phone] Livan Sharif MD Unavailable Catherine Cm MD Unavailable + Valery Veronica-C Unavailable [phone] Brea Quinn FLAT HAMMERER SOLAR SYSTEMS DESIGNER Unavailable Brea Quinn FLAT HAMMERER SOLAR SYSTEMS DESIGNER Unavailable Jose Francisco Johnson MD Unavailable Alfonso Renteria MD Unavailable + [phone] Esha Grimm PA-C Primary Care Provider Radha Lomeli FLAT HAMMERER SOLAR SYSTEMS DESIGNER Unavailable [phone] FrankieJelena OD Unavailable [phone] Pao Joseph RN Unavailable Unavailable Esha Grimm PA-C Unavailable [phone] Valery Veronica PA-C Unavailable [phone] Rey Tay MD Unavailable Duane Rocky DO Unavailable Philip Dumont MD Unavailable [phone] Encounter Details Date Type Department Care Team (Late st Contact Info) Description 08/10/2023 [facility] Medical Advice [facility] [address] [place] [phone] Esha Grimm PA-C [address] [place] [address] Social History Tobacco Use Types Packs/Day [...] How often do you attend [facility] or church services? 1 to 4 times per year 03/10/2023 Do you belong to any clubs o r organizations such as sikhism groups, unions, fraternal or athletic groups, [...] Answer Date Recorded PHQ-2 Score 0 06/20/2023 [facility] - Occupational Stress Questionnaire Answer [...] exercise at this level? 30 min 03/10/2023 [place] Depression Scale Answer Date Recorded [place] Depression Score 5 01/14/2021 Last EPDS Self [...] Encounter - Asiya Reddy RN - 08/10/2023 11:40 AM BRUSH MATERIAL PREPARER Esha- see Sidewalkt message below. Patient did call to see if E-Visit would be addressed today. No immediate concern at this time. Advised UC if needed sooner. Asiya Reddy RN H MATERIAL PREPARER documented in this encounter Plan of Treatment Upcoming Encounters Date Type Department Care Team (Late st Contact Info) Description 11/01/2023 8:00 AM CDT Appointment [facility] [address] [place] [phone] Lauren Claudio PA-C [address] [place] [address] 11/03/2023 8:00 AM CDT Office Visit [address] [phone] Valery Veronica PA-C 909 [place] [address] 11/29/2023 8:00 AM CDT Office Visit [facility] [address] [place] [phone] Esha Grimm PA-C [address] [place] [address]393583 12/19/2023 11:30 AM CDT Hospital Encounter [facility] 909 [facility] 5th [place] [phone] Rocky Zepeda, DO 500 [place] [address] 12/19/2023 11:30 AM CDT - 12/19/2023 12:00 PM CDT Surgery [facility] [address] [phone] Rocky Zepeda, DO 500 [place], [place] 090435 Esophagoscopy, gastroscopy, duodenoscopy (EGD), combined 01/02/2024 8:00 AM CDT Office Visit [facility] [address] [phone] Lauren Claudio PA-C [address] [place], [place] [phone] Kelli Perez MD [address] [place] [address] 038614 Scheduled Procedures Name Priority Associated Diagnoses Date/Ti me ESOPHAGOGASTRODUODENOSCOPY Eosinophilic esophagitis Esophageal dysphagia 12/19/2023 11:30 AM CDT documented as of this encounter Visit Diagnoses Not on filedocumented in this encounter Additional Health Concerns Assessment Noted Time PHQ-9 Depression Total Score: 4 06/20/20 23 8:40 AM BRUSH MATERIAL PREPARER documented as of this encounter Care Teams Special Education Director Relationship Specialty Start Date End Date Esha Grimm PA-C [address] [place] [address] PCP - General Family Medicine 05/04/23 Diana Desir, [facility] [address] [place] [address] Pharmacist Pharmacist 04/17/21 Rain Galaviz PA-C [address] [place] [address] [address] [place] [address] Physician Telesales Specialist Dermatology 04/28/21 Tavia Wyatt MD [address] [place] [address] DR [facility] [facility] [address] Dermatology 07/14/21 Erica Farrell APRN SOLAR SYSTEMS DESIGNER [address] [place] [address] Nurse Practitioner Cardiovascular Disease 09/09/21 Rich Barrett MD [address] [place] [address] 426005 Physician Ophthalmology 01/21/22 Neil Kent MD [address] [place] [address] 220975 Dermatology 02/24/22 Diana Desir, [facility] [address] [place] [address] Assigned MTM Pharmacist 04/07/22 Livan Sharif MD [address] [place] [address] Cardiovascular Disease 05/14/22 Catherine Cm MD [address] [facility] [address] [place] 043095 Cardiovascular Disease 07/21/22 Valery Veronica, PA-C 909 [place], [place] 360365 Physician Telesales Specialist Dermatology 07/21/22 Brea Quinn APRN SOLAR SYSTEMS DESIGNER 500 [place], [place] [phone] Nurse Practitioner Dermatology 09/21/22 Brea Quinn APRN SOLAR SYSTEMS DESIGNER 6401 [place], [place] 639262 Assigned Surgical Provider 10/09/22 [place] [address] [place] [address] [place], [place] 998307 Assigned Musculoskeletal Provider 10/09/22 Alfonso Renteria MD 5775 [facility] 200 [place], [place] 858256 Assigned Neuroscience Provider 04/02/23 Radha Lomeli APRN SOLAR SYSTEMS DESIGNER 6405 [facility] [address] [place] 912055 Assigned Heart and Vascular Provider 05/28/23 Jelena David OD 3305 [facility] [place] [address] Ophthalmology 06/15/23 Pao Joseph, RN Personal Advocate & Liaison (PAL) Nurse 08/01/23 Esha Grimm PA-C [address] [place] [address]-344483 Assigned PCP 07/16/23 Valery Veronica PA-C [address] [place] [address] Physician Telesales Specialist Dermatology 09/19/23 Rey Tay MD [address] [place] [address] Gastroenterology 09/20/23 Rocky Zepeda DO [address] [place] [address] Physician Gastroenterology 09/20/23 Philip Dumont MD [address] [place] [address] Physician Ophthalmology 09/22/23 documented as of this encounter
--- OUTSIDE RECORDS SUMMARY | 2023-10-28 16:40 | XMS_ITS | Encounter Summary ---
Author Name Unknown Organization [facility] Address [address] [place] [address] Care Team Providers Care Aquatic Laborer Name Role Phone ThangKendrickDiana T [facility] Unavailable Rain Galaviz-C Unavailable Tavia Wyatt MD Unavailable Unavailable Erica Farrell APRN REMOTE INPATIENT CODER Unavailable Rich Barrett MD Unavailable Neil Kent MD Unavailable Diana Desir [facility] Unavailable [phone] Livan Sharif MD Unavailable Catherine Cm MD Unavailable + Valery Veronica-C Unavailable [phone] Brea Quinn RED HAT LINUX ENGINEER REMOTE INPATIENT CODER Unavailable Brea Quinn RED HAT LINUX ENGINEER REMOTE INPATIENT CODER Unavailable Jose Francisco Johnson MD Unavailable Alfonso Renteria MD Unavailable + [phone] Esha Grimm PA-C Primary Care Provider Radha Lomeli RED HAT LINUX ENGINEER REMOTE INPATIENT CODER Unavailable FrankieJelena OD Unavailable [phone] Pao Joseph RN Unavailable Unavailable Esha Grimm PA-C Unavailable [phone] Encounter Details Date Type Department Care [...] How often do you attend [facility] or yazdanism services? 1 to 4 times [...] Answer Date Recorded PHQ-2 Score 0 06/20/2023 [facility] of Occupat ional Health - Occupational Stress [...] exercise at this level? 30 min 03/10/2023 [facility] [place] Depression Scale Answer Date Recorded [facility] [place] Depression Score 5 01/14/2021 Last EPDS Self [...] Appointment [facility] [address] [place] [address] Lauren Claudio PA-C [address] [place] [address] 11/03/2023 8:00 AM CDT Office Visit [address] [phone] Valery Veronica PA-C 909 [place] [address] 11/29/2023 8:00 AM CDT Office Visit [facility] [address] [place] [phone] Esha Grimm PA-C [address]341 [place] [address]-728983 12/19/2023 11:30 AM CDT Hospital Encounter [address] [phone] Rocky Zepeda DO 500 [place], [place] 083285 12/19/2023 11:30 AM CDT - 12/19/2023 12:00 PM CDT Surgery [address] [phone] Rocky Zepeda DO 500 [place], [place] 933165 Esophagoscopy, gastroscopy, duodenoscopy (EGD), combined 01/02/2024 8:00 AM CDT Office Visit [facility] [address] [phone] Lauren Claudio PA-C [address] [place], [place] [phone] Kelli Perez MD [address] [place], [place] 00[address]24 Scheduled Procedures Name Priority Associated Diagnoses Date/Ti co ESOPHAGOGASTRODUODENOSCOPY Eosinophilic esophagitis Esophageal dysphagia 12/19/2023 11:30 AM CDT documented as of this encounter Visit Diagnoses Not on filedocumented in this encounter Additional Health Concerns Assessment Noted Time PHQ-9 Depression Total Score: 4 06/20/20 23 8:40 AM AUDIOPROSTHOLOGIST documented as of this encounter Care Teams Aquatic Laborer Relationship Specialty Start Date End Date Esha Grimm PA-C [address] [place] [phone] PCP - General Family Medicine 05/04/23 Diana Desir, [facility] [address] [place], [place] [phone] Pharmacist Pharmacist 04/17/21 Rain Galaviz PA-C [address] [place] [address] [address] [place] [address] Physician Customizer Dermatology 04/28/21 Tavia Wyatt MD [address] [place] [address] EN[place] K[place]UTSON [address] Dermatology 07/14/21 Erica Farrell APRN REMOTE INPATIENT CODER 6405 [facility] [address] [place] [address] Nurse Practitioner Cardiovascular Disease 09/09/21 Rich Barrett MD 516 [facility] 9A [place], [place] [address]685 Physician Ophthalmology 01/21/22 Neil Kent MD 500 [place], [place] 490805 Dermatology 02/24/22 [facility] [address] [place], [place] 770546 Assigned MTM Pharmacist 04/07/22 Livan Sharif MD 6405 [facility] [address] S, [facility] [address] [place], [place] 031155 Cardiovascular Disease 05/14/22 Catherine Cm MD [address] [place] 8065200 [place], [place] 447595 Cardiovascular Disease 07/21/22 Valery Veronica, PAUcheC 909 [place], [place] 466795 Physician Customizer Dermatology 07/21/22 Brea Quinn APRN REMOTE INPATIENT CODER 500 [place] [address] Nurse Practitioner Dermatology 09/21/22 Brea Quinn APRN REMOTE INPATIENT CODER [address] [place] [address] [place] [address] Assigned Surgical Provider 10/09/22 [place] [address] [address] [place] [address] Assigned Musculoskeletal Provider 10/09/22 Alfonso Renteria MD [address] 200 [place], [place] 241076 Assigned Neuroscience Provider 04/02/23 Radha Lomeli APRN REMOTE INPATIENT CODER [address] [place] [address] Assigned Heart and Vascular Provider 05/28/23 Jelena David OD [address] [facility] [place] [address] Ophthalmology 06/15/23 Pao Joseph, RN Personal Advocate & Liaison (PAL) Nurse 08/01/23 Esha Grimm, PA-C [address] [place] [phone] Assigned PCP 07/16/23 documented as of this encounter
--- OUTSIDE RECORDS SUMMARY | 2023-10-28 16:40 | XMS_ITS | Encounter Summary ---
Author Name Unknown Organization [place] Address [address] [place] [address] Care Team Providers Care Wood Type Finisher Name Role Phone DesirKendrickDiana T [facility] Unavailable [phone] Rain GalavizC Unavailable Tavia Wyatt MD Unavailable Unavailable Erica Farrell APRN MEDICAL SERVICES ASSISTANT Unavailable Rich Barrett MD Unavailable Neil Kent MD Unavailable Diana Desir [facility] Unavailable Livan Sharif MD Unavailable Catherine Cm MD Unavailable + Valery Veronica-C Unavailable [phone] Brea Quinn JUNIOR ENGINEER MEDICAL SERVICES ASSISTANT Unavailable Brea Quinn JUNIOR ENGINEER MEDICAL SERVICES ASSISTANT Unavailable Jose Francisco Johnson MD Unavailable Sydnie Martinez RN Unavailable Unavailable Alfonso Renteria MD Unavailable + [phone] Esha Grimm PA-C Primary Care Provider Radha Lomeli JUNIOR ENGINEER MEDICAL SERVICES ASSISTANT Unavailable [phone] Jelena David OD Unavailable Pao Joseph RN Unavailable Unavailable Esha Grimm PA-C Unavailable [phone] Valery Veronica PA-C Unavailable [phone] Rey Tay MD Unavailable Rocky Zepeda DO Unavailable Philip Dumont MD Unavailable [phone] Encounter Details Date Type Department Care Team (Late st Contact Info) Description 07/27/2023 MyC Medical Advice [address] [address] Diana Desir, [facility] [address] [place] [address] Social History Tobacco Use Types Packs/Day Years Used Date Smoking Tobacco: Former Cigarettes Q uit: 12/07/2019 Other Smokeless Tobacco: Never [...] How often do you attend chur or anglican services? 1 to 4 times [...] Answer Date Recorded PHQ-2 Score 0 06/20/2023 [facility] - Occupational Stress Questionnaire Answer Date [...] exercise at this level? 30 min 03/10/2023 [place] Depression Scale Answer Date Recorded [place] Depression Score 5 01/14/2021 Last EPDS Self [...] [facility] [address] [place] [address] Lauren Claudio PA-C [address] [place], [place] [phone] 11/03/2023 8:00 AM CDT Office Visit [address] [phone] Valery Veronica PA-C [address] [place] [address] 11/29/2023 8:00 AM CDT Office Visit [facility] [address] [place] [phone] Esha Grimm PA-C [address] [place] [address] 12/19/2023 11:30 AM CDT Hospital [facility] [address] [facility] 5th [place] [phone] Rocky Zepeda, [address] [place] [address] 12/19/2023 11:30 AM CDT - 12/19/2023 12:00 PM CDT Surgery [facility] [address] [facility] [address] 5th [place] [phone] Rocky Zepeda, DO [address] [place], [place] [address] Esophagoscopy, gastroscopy, duodenoscopy (EGD), combined 01/02/2024 8:00 AM CDT Office Visit [facility] [address] [place] [phone] Lauren Claudio PA-C [address] [place], [place] [phone] Kelli Perez MD [address] [facility] [address] Scheduled Procedures Name Priority Associated Diagnoses Date/Ti sd ESOPHAGOGASTRODUODENOSCOPY Eosinophilic esophagitis Esophageal dysphagia 12/19/2023 11:30 AM CDT documented as of this encounter Visit Diagnoses Not on filedocumented in this encounter Additional Health Concerns Assessment Noted Time PHQ-9 Depression Total Score: 4 06/20/20 23 8:40 AM CLINICAL GENETICIST documented as of this encounter Care Teams Wood Type Finisher Relationship Specialty Start Date End Date Esha Grimm PA-C [id number] [place] [phone] PCP - General Family Medicine 05/04/23 Diana Desir [facility] [address] [place] [address] Pharmacist Pharmacist 04/17/21 Rain Galaviz PA-C [address] [place] [address] [address] [place] [address] Physician Western Philosophy Professor Dermatology 04/28/21 Tavia Wyatt MD [address] [place] [address] [address] [place], [place] [address] Dermatology 07/14/21 Erica Farrell APRN MEDICAL SERVICES ASSISTANT [address] [place] [address] Nurse Practitioner Cardiovascular Disease 09/09/21 Rich Barrett MD [address] [place] [address] 318175 Physician Ophthalmology 01/21/22 Neil Kent MD [address] [place] [address] 132535 Dermatology 02/24/22 [facility] [address] [place] [address] Assigned [place] Pharmacist 04/07/22 Livan Sharif MD [address] [place] [address] Cardiovascular Disease 05/14/22 Catherine Cm MD [address] [facility] [place] [address] Cardiovascular Disease 07/21/22 Valery Veronica, PAUcheC [address] [place] [address] 382335 Physician Western Philosophy Professor Dermatology 07/21/22 Brea Quinn APRN MEDICAL SERVICES ASSISTANT 500 [place], [place] 867315 Nurse Practitioner Dermatology 09/21/22 Brea Quinn APRN MEDICAL SERVICES ASSISTANT 6401 [place] [address] Assigned Surgical Provider 10/09/22 [place] [address] [facility] 300 [place] [address] Assigned Musculoskeletal Provider 10/09/22 Sydnie Martinez RN Personal Advocate & Liaison (PAL) Family Medicine 03/28/23 07/31/23 Alfonso Renteria MD [facility] 200 [place], [place] [address] Assigned Neuroscience Provider 04/02/23 Radha Lomeli APRN MEDICAL SERVICES ASSISTANT 6[address] [facility] [address] [place], [place] [address] Assigned Heart and Vascular Provider 05/28/23 Jelena David OD [address] [place] [address] Ophthalmology 06/15/23 Pao Joseph, VJ Personal Advocate & Liaison (PAL) Nurse 08/01/23 Esha Grimm PAUcheC [address] [place] [phone] Assigned PCP 07/16/23 Valery Veronica PA-C [address] [place] [address] 461305 Physician Western Philosophy Professor Dermatology 09/19/23 Rey Tay MD [address] [place] [address] Gastroenterology 09/20/23 Rocky Zepeda DO [address] [place] [address] 414585 Physician Gastroenterology 09/20/23 Philip Dumont MD [address] [place] [address] Physician Ophthalmology 09/22/23 documented as of this encounter
--- OUTSIDE RECORDS SUMMARY | 2023-10-28 16:40 | XMS_ITS | Encounter Summary ---
Author Name Unknown Organization [place] Address [address] [place] [address] Care Team Providers Care Assistant Tennis Coach Name Role Phone DesirKendrickDiana T [facility] Unavailable Rain GalavizC Unavailable Tavia Wyatt MD Unavailable Unavailable Erica Farrell APRN SERVICE LINE COORDINATOR Unavailable Rich Barrett MD Unavailable Neil Kent MD Unavailable Diana Desir [facility] Unavailable Livan Sharif MD Unavailable Catherine Cm MD Unavailable + Valery Veronica-C Unavailable [phone] Brea Quinn AIRFLIGHT ATTENDANTS SUPERVISOR SERVICE LINE COORDINATOR Unavailable Brea Quinn AIRFLIGHT ATTENDANTS SUPERVISOR SERVICE LINE COORDINATOR Unavailable [phone] Jose Francisco Johnson MD Unavailable Sydnie Martinez RN Unavailable Unavailable Alfonso Renteria MD Unavailable + [phone] José Miguel Pritchard PA-C Primary Care Provider Radha Lomeli AIRFLIGHT ATTENDANTS SUPERVISOR SERVICE LINE COORDINATOR Unavailable Jelena David OD Unavailable José Miguel Pritchard PA-C Unavailable [phone] Reason for Visit * Reason Comments Medication Therapy Management Encounter Details Date Type Department Care Team (Late st Contact Info) Description 07/27/2023 4:00 PM BEAUTY SHOP MANAGER Virtual Visit [address] [address] Diana Desir, [facility] [address] [place], [place] [phone] Anxiety (Primary Dx); Moderate major depression (H); [...] Score 0 06/20/2023 [facility] - Occupational Stress Questionnaire [...] exercise at this level? 30 min 03/10/2023 [place] Depression Scale Answer Date Recorded [place] Depression Score 5 01/14/2021 Last EPDS Self [...] Diana Desir RPH - 07/27/2023 4:00 PM BEAUTY SHOP MANAGER Recommendations from today's MTM visit: Decrease paroxetine [...] receive an email or text message from [employer] with a link to a survey related to your ???clinical pharmacist. To schedule another MTM appointment, please call the clinic directly or you may call the MTM scheduling line at [phone] or toll-free at . My Clinical Pharmacist's contact information: Please feel free to contact me with any questions or concerns you have. Diana Desir, PharmD, BCACP Medication Therapy Management Provider, [facility] TY SHOP MANAGER documented in this encounter Progress Notes * [...] summary of these recommendations was sent via [employer]. Diana Desir, PharmD, BCACP Medication Therapy Management Provider, [facility] [phone] Telemedicine Visit Details Type of service: Telephone visit Start Time: 4:15 PM End Time: 4:47 PM Medication Therapy Recommendations Anxiety Current Medication: PARoxetine (PAXIL) 40 MG tablet (Discontinued) Rationale: Condition refractory to medication - Ineffective medication - Effectiveness Recommendation: Change Medication - venlafaxine 37.5 MG 24 hr tablet Status: Accepted per CPA TY SHOP MANAGER documented in this encounter Miscellaneous Notes * Addendum Note - José Miguel Pritchard PA-C - 07/27/2023 4:00 PM CSTAddended by: JOSÉ MIGUEL PRITCHARD on: 07/28/2023 07:49 AM Modules accepted: Orders TY SHOP MANAGER documented in this encounter Plan of Treatment Upcoming Encounters Date Type Department Care Team (Late st Contact Info) Description 11/01/2023 8:00 AM CDT Appointment [facility] [address] [place] [address] Lauren Claudio PA-C [address] [place] [address] 11/03/2023 8:00 AM CDT Office Visit [address] [phone] Valery Veronica PA-C [address] [place] [address] 11/29/2023 8:00 AM CDT Office Visit [facility] [address] [place] [phone] José Miguel Pritchard PA-C [address] [place] [address] 12/19/2023 11:30 AM CDT Hospital Encounter [address] [phone] Rocky Zepeda DO 500 [place], [place] [address]105 12/19/2023 11:30 AM CDT - 12/19/2023 12:00 PM CDT Surgery [address] [phone] Rocky Zepeda DO 500 [place] [address] Esophagoscopy, gastroscopy, duodenoscopy (EGD), combined 01/02/2024 8:00 AM CDT Office Visit [facility] [address] [place] [phone] Lauren Claudio PA-C [address] [place], [place] [phone] Kelli Perez MD 606 [facility] 106 [place], [place] [phone] Scheduled Procedures Name Priority Associated Diagnoses Date/Ti me ESOPHAGOGASTRODUODENOSCOPY Eosinophilic esophagitis Esophageal dysphagia 12/19/2023 11:30 AM CDT documented as of this encounter Visit Diagnoses Diagnosis Anxiety- Primary Anxiety state, unspecified Moderate major depression (H) Major depressive disorder, single episode, moderate Paroxysmal supraventricular tachycardia (H24) Paroxysmal supraventricular tachycardia Gastroesophageal reflux disease with esophagitis without hemorrhage Seizure (H) Other convulsions Psoriasis Other psoriasis Eosinophilic esophagitis Esophageal dysphagia Dysphagia, pharyngoesophageal phase documented in this encounter Additional Health Concerns Assessment Noted Time PHQ-9 Depression Total Score: 4 06/20/20 23 8:40 AM BEAUTY SHOP MANAGER documented as of this encounter Care Teams Assistant Tennis Coach Relationship Specialty Start Date End Date José Miguel Pritchard PA-C [address] [place] [phone] PCP - General Family Medicine 05/04/23 Diana Desir [facility] 30[address] [facility] [address] Pharmacist Pharmacist 04/17/21 Rain Galaviz PA-C [address] [place] [address] [address] [place] [address] Physician Business Employment Specialist Dermatology 04/28/21 Tavia Wyatt MD [address] [place] [address] [address] [facility] [address] Dermatology 07/14/21 Erica Farrell APRN SERVICE LINE COORDINATOR [address] [place] [address] Nurse Practitioner Cardiovascular Disease 09/09/21 Rich Barrett MD [address] [address] Physician Ophthalmology 01/21/22 Neil Kent MD [address] [place] [address] [phone] Dermatology 02/24/22 Diana Desir, [facility] 30[address] [place], [place] 5[address]506 Assigned MTM Pharmacist 04/07/22 Livan Sharif MD [address] [place] [address] Cardiovascular Disease 05/14/22 Catherine Cm MD [address] [place] [address] Cardiovascular Disease 07/21/22 Valery Veronica, PAUcheC [address] [place] [address] Physician Business Employment Specialist Dermatology 07/21/22 Brea Quinn APRN SERVICE LINE COORDINATOR 500 [place] [address] Nurse Practitioner Dermatology 09/21/22 Brea Quinn APRN SERVICE LINE COORDINATOR 6401 [facility] [place] [address] Assigned Surgical Provider 10/09/22 [place] [address] [place] [facility] 300 [place] [address] Assigned Musculoskeletal Provider 10/09/22 Sydnie Martinez RN Personal Advocate & Liaison (PAL) Family Medicine 03/28/23 07/31/23 Alfonso Renteria MD 5775 [facility] 200 [place], [place] [address]436 Assigned Neuroscience Provider 04/02/23 Radha Lomeli APRN SERVICE LINE COORDINATOR 6405 [facility] [address] [place] [address] Assigned Heart and Vascular Provider 05/28/23 Jelena David OD [address] [facility] [place] [address] Ophthalmology 06/15/23 José Miguel Pritchard, PA-C [address] [place] [phone] Assigned PCP 07/16/23 documented as of this encounter
--- OUTSIDE RECORDS SUMMARY | 2023-10-28 16:40 | XMS_ITS | Encounter Summary ---
Author Name Unknown Organization [place] Address [address] [place] [address] Care Team Providers Care Florist Manager Name Role Phone DesirKendrickDiana T [facility] Unavailable Rain GalavizC Unavailable [phone] Tavia Wyatt MD Unavailable Unavailable Erica Farrell APRN STEEPLE JACK Unavailable Rich Barrett MD Unavailable Neil Kent MD Unavailable Diana Desir [facility] Unavailable Livan Sharif MD Unavailable Catherine Cm MD Unavailable + Valery Veronica-C Unavailable [phone] Brea Quinn APPARATUS LINEMAN STEEPLE JACK Unavailable Brea Quinn APPARATUS LINEMAN STEEPLE JACK Unavailable Jose Francisco Johnson MD Unavailable Sydnie Martinez RN Unavailable Unavailable Alfonso Renteria MD Unavailable + [phone] Esha Grimm PA-C Primary Care Provider Radha Lomeli APPARATUS LINEMAN STEEPLE JACK Unavailable Jelena David OD Unavailable Esha Grimm PA-C Unavailable Reason for Visit * Diagnostic Imaging Ultrasound (Routine) - Pending Review Specialty Diagnoses / Procedures Referred By Contac t Referred To Contact Radiology. Diagnoses Abdominal discomfort, bilateral lower quadrant Procedures US Pelvic Complete with Transvaginal Esha Grimm PA-C [address] [place] [address] Referral ID Status Reason Start Date Expiration Date V isits Requested Visits Authorized [id number] Pending Review 07/14/2023 07/13/2024 1 1 Encounter Details Date Type Department Care Team (Latest Contact Info) Description 07/21/2023 9:40 AM FINISH INSPECTOR Ancillary Procedure [address] [address] Esha Grimm PA-C [address] [place] [address] Abdominal discomfort, bilateral lower quadrant [...] at this level? 30 min 03/10/2023 [place] Depression Scale Answer Date Recorded [place] Depression Score 5 01/14/2021 Last EPDS Self [...] Info) Description 11/01/2023 8:00 AM CDT Appointment [facility] [address] [place] [address] Lauren Claudio PA-C [address] [place], [place] [phone] 11/03/2023 8:00 AM CDT Office Visit [address] [phone] Valery Veronica PA-C 909 [place] [address] 11/29/2023 8:00 AM CDT Office Visit [facility] [address] [place] [phone] Esha Grimm PA-C [address] [place] [phone] 12/19/2023 11:30 AM CDT Hospital Encounter [facility] 909 [facility] 5th [place] [phone] ZepedaEvansua, 500 [place], [place] [address] 12/19/2023 11:30 AM CDT - 12/19/2023 12:00 PM CDT Surgery [facility] 909 [facility] 5th [place] [phone] Rocky Zepeda, DO 500 [place], [place] [phone] Esophagoscopy, gastroscopy, duodenoscopy (EGD), combined 01/02/2024 8:00 AM CDT Office Visit [address] [phone] Lauren Claudio, PABaldo [address] [place] [address] [phone] Kelli Perez MD [address] [place] [address] Scheduled Procedures Name Priority Associated Diagnoses Date/Ti ct ESOPHAGOGASTRODUODENOSCOPY Eosinophilic esophagitis Esophageal dysphagia 12/19/2023 11:30 AM CDT documented as of this encounter Procedures Procedure Name Priority Date/Time Associated Diagnosis Comments US PELVIC TRANSABDOMINAL AND TRANSVAGINAL Routine 07/21/2023 9:57 AM FINISH INSPECTOR Abdominal discomfort, bilateral lower quadrant documented in this encounter Results * US Pelvic Complete with Transvaginal (07/21/2023 9:57 AM FINISH INSPECTOR) Anatomical Region Laterality Modality Abdomen/Pelvis Ultrasound Narrative 07/21/2023 12:20 PM FINISH INSPECTOR [facility] ULTRASOUND - PELVIC OPTICIANRY TEACHER- Transabdominal and Transvaginal Referring MD: Esha Grimm [...] Gloria Espinal, DO ?? Obstetrics and Gynecology [facility] Esha Grimm PA-C IMG US ORDERABLES documented in this encounter Visit Diagnoses Diagnosis Abdominal discomfort, bilateral lower quadrant Abdominal pain, other specified site Eosinophilic esophagitis Esophageal dysphagia Dysphagia, pharyngoesophageal phase documented in this encounter Additional Health Concerns Assessment Noted Time PHQ-9 Depression Total Score: 4 06/20/20 23 8:40 AM FINISH INSPECTOR documented as of this encounter Care Teams Florist Manager Relationship Specialty Start Date End Date Esha Grimm PA-C [address] [place] [phone] PCP - General Family Medicine 05/04/23 Diana Desir, [facility] [address] [place] [address] Pharmacist Pharmacist 04/17/21 Rain Galaviz PA-C [address] [place] [address] [address] [place] [address] Physician Gas Shovel Operator Dermatology 04/28/21 Tavia Wyatt MD [address] [place] [address] [place] [address] Dermatology 07/14/21 Erica Farrell APRN STEEPLE JACK [address] [place] [address] Nurse Practitioner Cardiovascular Disease 09/09/21 Rich Barrett MD 516 [facility] 9A [place], [place] 93[address]85 Physician Ophthalmology 01/21/22 Neil Kent MD 500 [place], [place] 155765 Dermatology 02/24/22 Diana Desir, [facility] [address] [place] [address] Assigned MTM Pharmacist 04/07/22 Livan Sharif MD [address] [place] [address] Cardiovascular Disease 05/14/22 Catherine Cm MD [address] [facility] [address] [place] [address] Cardiovascular Disease 07/21/22 Valery Veronica PAUcheC 909 [place] [address] Physician Gas Shovel Operator Dermatology 07/21/22 Brea Quinn APRN STEEPLE JACK 500 [place], [place] 384285 Nurse Practitioner Dermatology 09/21/22 Brea Quinn APRN STEEPLE JACK 6401 [place] [address] Assigned Surgical Provider 10/09/22 [place] [address] [place] [address] Assigned Musculoskeletal Provider 10/09/22 Sydnie Martinez RN Personal Advocate & Liaison (PAL) Family Medicine 03/28/23 07/31/23 Alfonso Renteria MD 5775 [facility] 200 [place], [place] 925856 Assigned Neuroscience Provider 04/02/23 Radha Lomeli APRN STEEPLE JACK 6405 [facility] [address] [place] [address]366[address] Assigned Heart and Vascular Provider 05/28/23 Jelena David OD 3305 [facility] [place] [address] Ophthalmology 06/15/23 Esha Grimm PA-C [address] [place] [address] Assigned PCP 07/16/23 documented as of this encounter
--- OUTSIDE RECORDS SUMMARY | 2023-10-28 16:40 | XMS_ITS | Encounter Summary ---
Author Name Unknown Organization [place] Address [address] [place] [address] Care Team Providers Care Lathe Set Up Operator Name Role Phone DesirKendrickDiana T [facility] Unavailable [phone] Rain GalavizC Unavailable Tavia Wyatt MD Unavailable Unavailable Erica Farrell APRN PREPARATION SUPERVISOR CANNING Unavailable Rich Barrett MD Unavailable Neil Kent MD Unavailable Diana Desir [facility] Unavailable Livan Sharif MD Unavailable Catherine Cm MD Unavailable + Valery Veronica-C Unavailable [phone] Brea Quinn ALUMINUM CONTAINER TESTER PREPARATION SUPERVISOR CANNING Unavailable Brea Quinn ALUMINUM CONTAINER TESTER PREPARATION SUPERVISOR CANNING Unavailable Jose Francisco Johnson MD Unavailable Sydnie Martinez RN Unavailable Unavailable Alfonso Renteria MD Unavailable + [phone] Esha Grimm PA-C Primary Care Provider Cheng Todd PA-C Unavailable Radha Lomeli APRN PREPARATION SUPERVISOR CANNING Unavailable [phone] Jelena David OD Unavailable Pao Joseph RN Unavailable Unavailable Esha Grimm PA-C Unavailable [phone] Valery Veronica PA-C Unavailable [phone] Rey Tay MD Unavailable Rocky Zepeda DO Unavailable Philip Dumont MD Unavailable Encounter Details Date Type Department Care Team (Late st Contact Info) Description 07/06/2023 MyC Medical Advice [facility] [id number] [place] [address] Esha Grimm PA-C [id number] [place] [address] Social History Tobacco Use Types Packs/Day [...] Answer Date Recorded PHQ-2 Score 0 06/20/2023 [facility] - Occupational Stress Questionnaire Answer Date [...] exercise at this level? 30 min 03/10/2023 [place] Depression Scale Answer Date Recorded [place] Depression Score 5 01/14/2021 Last EPDS Self [...] [facility] [address] [place] [address] Lauren Claudio PA-C [address] [place] [address] 11/03/2023 8:00 AM CDT Office Visit [address] [phone] Valery Veronica PA-C [address] [place] [address] 11/29/2023 8:00 AM CDT Office Visit [facility] [address] [place] [phone] Esha Grimm PA-C [address] [place] [phone] 12/19/2023 11:30 AM CDT Hospital Encounter [facility] [address] [place] [address] 5th [place] [phone] Rocky Zepeda 500 [place] [address] 12/19/2023 11:30 AM CDT - 12/19/2023 12:00 PM CDT Surgery [facility] [address] [facility] [address] 5th [place] [phone] Rocky Zepeda DO 500 [place] [address] Esophagoscopy, gastroscopy, duodenoscopy (EGD), combined 01/02/2024 8:00 AM CDT Office Visit [facility] [address] [place] [phone] Lauren Claudio PA-C [address] [place], [place] [phone] Kelli Perez MD [address] [phone] Scheduled Procedures Name Priority Associated Diagnoses Date/Ti mo ESOPHAGOGASTRODUODENOSCOPY Eosinophilic esophagitis Esophageal dysphagia 12/19/2023 11:30 AM CDT documented as of this encounter Visit Diagnoses Not on filedocumented in this encounter Additional Health Concerns Assessment Noted Time PHQ-9 Depression Total Score: 4 06/20/20 23 8:40 AM MILLER HELPER documented as of this encounter Care Teams Lathe Set Up Operator Relationship Specialty Start Date End Date Esha Grimm PA-C [address] [place] [phone] PCP - General Family Medicine 05/04/23 Diana Desir, [facility] [address] [place], [place] [address] Pharmacist Pharmacist 04/17/21 Rain Galaviz PA-C [address] [place] [address] [address] [place] [address] Physician Substation Operator Chief Dermatology 04/28/21 Tavia Wyatt MD [address] [place] [address] [place] [address] Dermatology 07/14/21 Erica Farrell APRN PREPARATION SUPERVISOR CANNING [address] [place] [address] Nurse Practitioner Cardiovascular Disease 09/09/21 Rich Barrett MD [address] 980445 Physician Ophthalmology 01/21/22 Neil Kent MD 500 [place], [place] 6[address] Dermatology 02/24/22 Diana Desir, [facility] 3033 [place] [address] Assigned MTM Pharmacist 04/07/22 Livan Sharif MD [address] [place] [address] Cardiovascular Disease 05/14/22 Catherine Cm MD [address] [place] [address] Cardiovascular Disease 07/21/22 Valery Veronica PA-C 909 [place] [address] Physician Substation Operator Chief Dermatology 07/21/22 Brea Quinn APRN PREPARATION SUPERVISOR CANNING 500 [place] [address] Nurse Practitioner Dermatology 09/21/22 Brea Quinn APRN PREPARATION SUPERVISOR CANNING 64[address] [facility] [place] [address] Assigned Surgical Provider 10/09/22 [place] [address] [place] [address] Assigned Musculoskeletal Provider 10/09/22 Sydnie Martinez RN Personal Advocate & Liaison (PAL) Family Medicine 03/28/23 07/31/23 Alfonso Renteria MD 5775 [facility] 200 [place], [place] 9[address]306 Assigned Neuroscience Provider 04/02/23 Cheng Todd PA-C [address] [place], [place] [phone] Assigned PCP 04/30/23 07/15/23 Radha Lomeli APRN PREPARATION SUPERVISOR CANNING 6405 [facility] [address] [place] [address]645 Assigned Heart and Vascular Provider 05/28/23 Jelena David OD [address] [facility] [address] [place] [id number] MD Ophthalmology 06/15/23 Pao Joseph, RN Personal Advocate & Liaison (PAL) Nurse 08/01/23 Esha Grimm PA-C [address] [place] [address]83 Assigned PCP 07/16/23 Valery Veronica PA-C [address] [place] [address] 837255 Physician Substation Operator Chief Dermatology 09/19/23 Rey Tay MD [address] [place] [address] 567755 Gastroenterology 09/20/23 Rocky Zepeda DO [address] [place] [address] [phone] Physician Gastroenterology 09/20/23 Philip Dumont MD [address] [place] [address] Physician Ophthalmology 09/22/23 documented as of this encounter
--- OUTSIDE RECORDS SUMMARY | 2023-10-28 16:40 | XMS_ITS | Encounter Summary ---
Author Name Unknown Organization [place] Address [address] [place] [address] Care Team Providers Care Netsuite Developer Name Role Phone DesirKendrickDiana T [facility] Unavailable Rain GalavizC Unavailable Tavia Wyatt MD Unavailable Unavailable Erica Farrell APRN CABINET WORKER Unavailable Rich Barrett MD Unavailable Neil Kent MD Unavailable Diana Desir [facility] Unavailable Livan Sharif MD Unavailable Catherine Cm MD Unavailable + Valery Veronica-C Unavailable [phone] Brea Quinn COUPON REDEMPTION CLERK CABINET WORKER Unavailable [phone] Brea Quinn COUPON REDEMPTION CLERK CABINET WORKER Unavailable [phone] Jose Francisco Johnson MD Unavailable Sydnie Martinez RN Unavailable Unavailable Alfonso Renteria MD Unavailable + [phone] Esha Grimm PA-C Primary Care Provider [phone] Cheng ToddC Unavailable Radha Lomeli APRN CABINET WORKER Unavailable [phone] Jelena David OD Unavailable Pao Joseph RN Unavailable Unavailable Alfa Eshalincoln Medina PA-C Unavailable [phone] Valery Veronica PA-C Unavailable [phone] Rey Tay MD Unavailable Rocky Zepeda DO Unavailable Philip Dumont MD Unavailable Encounter Details Date Type Department Care Team (Late st Contact Info) Description 07/06/2023 MyC Medical Advice [facility] [address] [place] [address] Alfonso Renteria MD [address] [facility] [address] 200 [place] [address] Social History Tobacco Use Types [...] Answer Date Recorded PHQ-2 Score 0 06/20/2023 [facility] - Occupational Stress Questionnaire Answer [...] exercise at this level? 30 min 03/10/2023 [place] Depression Scale Answer Date Recorded [place] Depression Score 5 01/14/2021 Last EPDS Self [...] Genny Hyman PA-C - 07/07/2023 11:13 AM C.O.D. BILLER No lesions/abnormal findings on MRI to account for possible seizure activity. Last office note indicated: If repeat MRI was normal would reduce levetiracetam to 250 mg per day for two weeks and then stop. Ok to proceed with this plan. Call if questions, concerns, or worsening of symptoms with discontinuation of the medication Genny Hyman PA-C C.O.D. BILLER documented in this encounter Plan of Treatment Upcoming Encounters Date Type Department Care Team (Late st Contact Info) Description 11/01/2023 8:00 AM CDT Appointment [facility] [address] [place] [phone] Lauren Claudio PA-C [address] [place], [place] [phone] 11/03/2023 8:00 AM CDT Office Visit [address] [phone] Valery Veronica PA-C 909 [place] [address] 11/29/2023 8:00 AM CDT Office Visit [address] [phone] Esha Grimm PA-C [address] [place] [phone] 12/19/2023 11:30 AM CDT Hospital Encounter [address] [phone] Rocky Zepeda DO 500 [place], [place] [phone] 12/19/2023 11:30 AM CDT - 12/19/2023 12:00 PM CDT Surgery [address] [phone] Rocky Zepeda DO 500 [place], [place] 6[address]45 Esophagoscopy, gastroscopy, duodenoscopy (EGD), combined 01/02/2024 8:00 AM CDT Office Visit [address] [phone] Lauren Claudio PA-C [address] [place], [place] [phone] Kelli Preez MD [address] [place] [address] Scheduled Procedures Name Priority Associated Diagnoses Date/Ti ri ESOPHAGOGASTRODUODENOSCOPY Eosinophilic esophagitis Esophageal dysphagia 12/19/2023 11:30 AM CDT documented as of this encounter Visit Diagnoses Not on filedocumented in this encounter Additional Health Concerns Assessment Noted Time PHQ-9 Depression Total Score: 4 06/20/20 23 8:40 AM C.O.D. BILLER documented as of this encounter Care Teams Netsuite Developer Relationship Specialty Start Date End Date Esha Grimm PA-C [address] [place] [address] PCP - General Family Medicine 05/04/23 Diana Desir, [facility] [address] [place] [address] Pharmacist Pharmacist 04/17/21 Rain Galaviz PA-C [address] [place] [address] [address] [place] [address] Physician Edi Analyst Dermatology 04/28/21 Tavia Wyatt MD [address] [place] [address] [address] [place] [address] Dermatology 07/14/21 Erica Farrell APRN CABINET WORKER 6405 [facility] [address] [place] [address] Nurse Practitioner Cardiovascular Disease 09/09/21 Rich Barrett MD 516 [facility] [address] [place] [address] Physician Ophthalmology 01/21/22 Neil Kent MD 500 [place], [place] 021325 Dermatology 02/24/22 Diana Desir, [facility] [address] [place] [address] Assigned MTM Pharmacist 04/07/22 Livan Sharif MD [address] [facility] LIS[address] Ward [facility] [address] [place], [place] [address]48[address] Cardiovascular Disease 05/14/22 Catherine Cm MD [address] [place] 6948900 [place], [place] 148935 Cardiovascular Disease 07/21/22 Valery Veronica PA-C 909 [place] [address] Physician Edi Analyst Dermatology 07/21/22 Brea Quinn APRN CABINET WORKER 500 [place], [place] [phone] Nurse Practitioner Dermatology 09/21/22 Brea Quinn APRN CABINET WORKER [address] [place] [address] 476112 Assigned Surgical Provider 10/09/22 [place] [address] 380547 Assigned Musculoskeletal Provider 10/09/22 Sydnie Martinez RN Personal Advocate & Liaison (PAL) Family Medicine 03/28/23 07/31/23 Alfonso Renteria MD 5775 [facility] 200 [place], [place] 6[address]666 Assigned Neuroscience Provider 04/02/23 Cheng Todd PA-C [address] [place] [address] Assigned PCP 04/30/23 07/15/23 Radha Lomeli APRN CABINET WORKER [address] [place] [address] Assigned Heart and Vascular Provider 05/28/23 Jelena David OD [address] [facility] [address] MD Ophthalmology 06/15/23 Pao Joseph, VJ Personal Advocate & Liaison (PAL) Nurse 08/01/23 Esha Grimm PA-C [address] [place] [address]627483 Assigned PCP 07/16/23 Valery Veronica PAUcheC 9 [place], [place] 802035 Physician Edi Analyst Dermatology 09/19/23 Rey Tay MD [address] [place] [address] Gastroenterology 09/20/23 Rocky Zepeda DO [address] [place] [address] Physician Gastroenterology 09/20/23 Philip Dumont MD [address] [place] [address] Physician Ophthalmology 09/22/23 documented as of this encounter
--- OUTSIDE RECORDS SUMMARY | 2023-10-28 16:40 | XMS_ITS | Encounter Summary ---
Author Name Unknown Organization [place] Address [address] [place] [address] Care Team Providers Care Manager Facility Name Role Phone DesirKendrickDiana T [facility] Unavailable [phone] Rain GalavizC Unavailable Tavia Wyatt MD Unavailable Unavailable Erica Farrell APRN IRONING MACHINE OPERATOR Unavailable Rich Barrett MD Unavailable Neil Kent MD Unavailable Diana Desir [facility] Unavailable Livan Sharif MD Unavailable Catherine Cm MD Unavailable + Valery Veronica-C Unavailable [phone] CROSSING GUARD IRONING MACHINE OPERATOR Unavailable Brea Quinn ROAD CROSSING GUARD IRONING MACHINE OPERATOR Unavailable Jose Francisco Johnson MD Unavailable Sydnie Martinez RN Unavailable Unavailable Alfonso Renteria MD Unavailable + [phone] Esha Grimm PA-C Primary Care Provider Radha Lomeli ROAD CROSSING GUARD IRONING MACHINE OPERATOR Unavailable [phone] Jelena David OD Unavailable Pao Joseph RN Unavailable Unavailable Wicho Grimmlincoln Medina PA-C Unavailable [phone] Valery Veronica PA-C Unavailable [phone] Rey Tay MD Unavailable Rocky Zepeda DO Unavailable Philip Dumont MD Unavailable [phone] Encounter Details Date Type Department Care Team (Late st Contact Info) Description 07/29/2023 MyC Medical Advice [address] [address] Pao Joseph, RN Social History [...] Date Recorded PHQ-2 Score 0 06/20/2023 [facility] - Occupational Stress Questionnaire Answer Date [...] exercise at this level? 30 min 03/10/2023 [place] Depression Scale Answer Date Recorded [place] Depression Score 5 01/14/2021 Last EPDS [...] [facility] [address] [place] [address] Lauren Claudio PA-C [address] [place], [place] [phone] 11/03/2023 8:00 AM CDT Office Visit [address] [phone] Valery Veronica PA-C [address] [place] [address] 11/29/2023 8:00 AM CDT Office Visit [facility] [address] [place] [phone] Esha Grimm PA-C [address] [place] [phone] 12/19/2023 11:30 AM CDT Hospital Encounter [facility] 909 [facility] 5th [place] [phone] Rocky Zepeda, [address] [place] [address] 12/19/2023 11:30 AM CDT - 12/19/2023 12:00 PM CDT Surgery [facility] 909 [facility] [address] 5th [place] [phone] Rocky Zepeda, 500 [place], [place] 6[address]75 Esophagoscopy, gastroscopy, duodenoscopy (EGD), combined 01/02/2024 8:00 AM CDT Office Visit [facility] [address] [place] [phone] Lauren Claudio PA-C [address] [place], [place] [phone] Kelli Perez MD [address] 24[address] [facility] 106 [place], [place] [phone] Scheduled Procedures Name Priority Associated Diagnoses Date/Ti mn ESOPHAGOGASTRODUODENOSCOPY Eosinophilic esophagitis Esophageal dysphagia 12/19/2023 11:30 AM CDT documented as of this encounter Visit Diagnoses Not on filedocumented in this encounter Additional Health Concerns Assessment Noted Time PHQ-9 Depression Total Score: 4 06/20/20 23 8:40 AM SCIENTIFIC DATABASE CURATOR documented as of this encounter Care Teams Manager Facility Relationship Specialty Start Date End Date Esha Grimm PA-C [address] [place] [address] PCP - General Family Medicine 05/04/23 Diana Desir, [facility] [address] [place], [place] [address] Pharmacist Pharmacist 04/17/21 Rain Galaviz PA-C [address] [place] [address] [address] [place] [id number] Physician Project Engineering Manager Dermatology 04/28/21 Tavia Wyatt MD [address] [place] [address] DR RAZO [facility] [place] [address] Dermatology 07/14/21 Erica Farrell APRN IRONING MACHINE OPERATOR [address] [place], [place] [address] Nurse Practitioner Cardiovascular Disease 09/09/21 Rich Barrett MD [address] [place] [address], [address] [address] Physician Ophthalmology 01/21/22 Neil Kent MD [address] [place] [address] [phone] Dermatology 02/24/22 Diana Desir, [facility] 3033 [place], [place] 350976 Assigned MTM Pharmacist 04/07/22 Livan Sharif MD [address] [place], [place] [address] Cardiovascular Disease 05/14/22 Catherine Cm MD [address] [place] [address] Cardiovascular Disease 07/21/22 Valery Veronica, PA-C [address] [place] [address]755 Physician Project Engineering Manager Dermatology 07/21/22 Brea Quinn APRN IRONING MACHINE OPERATOR 500 [place] [address] Nurse Practitioner Dermatology 09/21/22 Brea Quinn, ROAD CROSSING GUARD IRONING MACHINE OPERATOR 6401 [facility] [place] [address] Assigned Surgical Provider 10/09/22 [place] [address] [facility] 300 [place] [address] Assigned Musculoskeletal Provider 10/09/22 Sydnie Martinez RN Personal Advocate & Liaison (PAL) Family Medicine 03/28/23 07/31/23 Alfonso Renteria MD 5775 [facility] 200 [place], [place] [address] Assigned Neuroscience Provider 04/02/23 Radha Lomeli, ARLENE IRONING MACHINE OPERATOR [address] 363865 Assigned Heart and Vascular Provider 05/28/23 Jelena David OD [address] [facility] [place] [address] Ophthalmology 06/15/23 Pao Joseph, VJ Personal Advocate & Liaison (PAL) Nurse 08/01/23 Esha Grimm PA-C [address] [place] [phone] Assigned PCP 07/16/23 Valery Veronica PA-C 909 [place] [address] Physician Project Engineering Manager Dermatology 09/19/23 Rey Tay MD 909 [place], [place] 0[address] MD Gastroenterology 09/20/23 Rocky Zepeda DO [address] [place] [address] Physician Gastroenterology 09/20/23 Philip Dumont MD 6 [place] [address] Physician Ophthalmology 09/22/23 documented as of this encounter
--- OUTSIDE RECORDS SUMMARY | 2023-10-28 16:40 | XMS_ITS | Encounter Summary ---
Author Name Unknown Organization [facility] Address [address] [place] [address] Care Team Providers Care Title Searcher Name Role Phone ThangKendrickDiana T [facility] Unavailable Rain Galaviz-C Unavailable Tavia Wyatt MD Unavailable Unavailable Erica Farrell APRN LEAD SYSTEMS ARCHITECT Unavailable Rich Barrett MD Unavailable Neil Kent MD Unavailable Diana Desir [facility] Unavailable [phone] Livan Sharif MD Unavailable Catherine Cm MD Unavailable + Valery Veronica-C Unavailable [phone] Brea Quinn TRIAGE TECHNICIAN LEAD SYSTEMS ARCHITECT Unavailable Brea Quinn TRIAGE TECHNICIAN LEAD SYSTEMS ARCHITECT Unavailable [phone] Jose Francisco Johnson MD Unavailable Alfonso Renteria MD Unavailable + [phone] Esha Grimm PA-C Primary Care Provider Radha Lomeli TRIAGE TECHNICIAN LEAD SYSTEMS ARCHITECT Unavailable Jelena David OD Unavailable [phone] Pao Joseph RN Unavailable Unavailable Esha Grimm PA-C Unavailable [phone] Reason for Referral * Consultation (Urgent: 3-5 Days) - Pending Review Specialty Diagnoses / Procedures Referred By Contac t Referred To Contact Diagnoses Finger pain, right Esha Grimm PA-C [address] [place] [address] Referral ID Status Reason Start Date Expiration Date V isits Requested Visits Authorized [id number] Pending Review 08/01/2023 07/31/2024 1 1 Question Answer Consult Type: Other Type: Per Protocol My Clinical Question Is: Finger Fracture Scheduling Instructions: [facility] Orthopedic Core Driller Helper will call you to coordinate your care as prescribed by your provider. A cordage sales representative will call you within 2 business days to help you schedule your appointment, or you may contact the Core Driller Helper Psychologist Clinical at: . Comments Please be aware that coverage of these services is subject to the terms and limitations of your health insurance plan. Call member services at your health plan with any benefit or coverage questions. [facility] Orthopedic Core Driller Helper will call you to coordinate your care as prescribed by your provider. A cordage sales representative will call you within 2 business days to help you schedule your appointment, or you may contact the Core Driller Helper Psychologist Clinical at: . WELDER LINE * Diagnostic Imaging XR (Routine) - Pending Review Specialty Diagnoses / Procedures Referred By Contac t Referred To Contact Radiology. Diagnoses Finger pain, right Procedures XR Hand Right G/E 3 Views Esha Grimm PA-C [address] [place] [address] Referral ID Status Reason Start Date Expiration Date V isits Requested Visits Authorized [id number] Pending Review 08/01/2023 07/31/2024 1 1 [place]EL[place] Reason for Visit * Reason Comments Musculoskeletal Problem Encounter Details Date Type Department Care Team (Late st Contact Info) Description 08/01/2023 8:30 AM SPOT [place]ELDER LINE Office Visit [facility] [address] [place] [address] Esha Grimm PA-C [address] [place] [address] Finger pain, right (Primary Dx) [...] you attend [facility] or quaker services? 1 to 4 times [...] Answer Date Recorded PHQ-2 Score 0 06/20/2023 [facility] - Occupational Stress [...] exercise at this level? 30 min 03/10/2023 [place] Depression Scale Answer Date Recorded [place] Depression Score 5 01/14/2021 Last EPDS Self [...] Comments Blood Pressure 113/60 08/01/2023 8:19 AM SPOT [place]ELDER LINE Pulse 70 08/01/2023 8:19 AM SPOT [place] Temperature 36.6 ??C (97.9 ??F) 08/01/2023 8:19 AM CS T Respiratory Rate 18 08/01/2023 8:19 AM SPOT [place]EL[place] Oxygen Saturation 99% 08/01/2023 8:19 AM SPOT [place]EL[place] Inhaled Oxygen Concentration - - Weight 83.9 kg (185 lb) 08/01/2023 8:19 AM SPOT [place]ELDER [place] Height 167.6 cm (5' 6) 08/01/2023 8:19 AM SPOT [place]DER [place] Body Mass Index 29.86 08/01/2023 8:19 AM SPOT WELDER LINE documented in this encounter Progress Notes * [...] wrist. Signed Electronically by: Esha Grimm PA-C W[place]DER [place] documented in this encounter Plan of Treatment Upcoming Encounters Date Type Department Care Team (Late st Contact Info) Description 11/01/2023 8:00 AM CDT Appointment [facility] [address] [place] [address] Lauren Claudio PA-C [address] [place] [address] 11/03/2023 8:00 AM CDT Office Visit [address] [phone] Valery Veronica PA-C 909 [place] [address] 11/29/2023 8:00 AM CDT Office [facility] [address] [place] [phone] Esha Grimm PA-C [address] [place] [address] 12/19/2023 11:30 AM CDT Hospital Encounter [address] [phone] Rocky Zepeda DO 500 [place], [place] [address] 12/19/2023 11:30 AM CDT - 12/19/2023 12:00 PM CDT Surgery [address] [phone] Rocky Zepeda DO 500 [place], [place] 152085 Esophagoscopy, gastroscopy, duodenoscopy (EGD), combined 01/02/2024 8:00 AM CDT Office Visit [facility] [address] [phone] Lauren Claudio PA-C [address] [place], [place] [phone] Kelli Perez MD [address] [place] [address] Scheduled Procedures Name Priority Associated Diagnoses Date/Ti me ESOPHAGOGASTRODUODENOSCOPY Eosinophilic esophagitis Esophageal dysphagia 12/19/2023 11:30 AM CDT Scheduled Referrals Name Type Priority Associated Diagnoses Orde r Schedule Orthopedic Core Driller Helper Referral Referral Urgent: 3-5 Days Finger pain, right Expected: 08/01/2023 (Approximate), Expires: 08/01/2024 documented as of this encounter Results * XR Hand Right G/E 3 Views (08/01/2023 9:04 AM SPOT WELDER LINE) Anatomical Region Laterality Modality Hand, Wrist Right Computed Radiogr aphy Impressions 08/01/2023 10:59 AM SPOT WELDER LINE IMPRESSION: The right hand is negative for fracture or dislocation. No erosive changes. JASON ALVARADO MD SYSTEM ID: [id number] Narrative 08/01/2023 10:59 AM SPOT WELDER LINE XR HAND RIGHT G/E 3 VIEWS 08/01/2023 9:04 AM HISTORY: Finger pain, right COMPARISON: None. Procedure Note Jason Alvarado MD - 08/01/2023 XR HAND RIGHT G/E 3 VIEWS 08/01/2023 9:04 AM HISTORY: Finger pain, right COMPARISON: None. IMPRESSION: The right hand is negative for fracture or dislocation. No erosive changes. JASON ALVARADO MD SYSTEM ID: [id number] Esha Grimm PA-C IMG DIAGNOSTIC IMAGI NG ORDERABLES documented in this encounter Visit Diagnoses Diagnosis Finger pain, right- Primary Pain in limb Finger pain, right Pain in limb Eosinophilic esophagitis Esophageal dysphagia Dysphagia, pharyngoesophageal phase documented in this encounter Additional Health Concerns Assessment Noted Time PHQ-9 Depression Total Score: 4 06/20/20 23 8:40 AM SPOT WELDER [place] documented as of this encounter Care Teams Title Searcher Relationship Specialty Start Date End Date Esha Grimm PA-C [address] [place] [address] PCP - General Family Medicine 05/04/23 Diana Desir, [facility] [place] [address] Pharmacist Pharmacist 04/17/21 Rain Galaviz PA-C [address] [place] [address] [address] [place] [address] Physician Animal Caretaker Dermatology 04/28/21 Tavia Wyatt MD [address] [place] [address] [address] [place] [address] Dermatology 07/14/21 Erica Farrell APRN LEAD SYSTEMS ARCHITECT 6405 [facility] [address] [place] [address] Nurse Practitioner Cardiovascular Disease 09/09/21 Rich Barrett MD [address] 0099[address] Physician Ophthalmology 01/21/22 Neil Kent MD [address] [place] [address] 479895 Dermatology 02/24/22 Diana Desir, [facility] [place] [address] Assigned MTM Pharmacist 04/07/22 Livan Sharif MD [address], [facility] [address] [place] [address] Cardiovascular Disease 05/14/22 Catherine Cm MD [address] [facility] [address] [place] 925825 Cardiovascular Disease 07/21/22 Valery Veronica, PAUcheC [address] [place] [address] Physician Animal Caretaker Dermatology 07/21/22 Brea Quinn APRN LEAD SYSTEMS ARCHITECT 500 [place], [place] 370535 Nurse Practitioner Dermatology 09/21/22 Brea Quinn APRN LEAD SYSTEMS ARCHITECT 6401 [facility] [place] [address] Assigned Surgical Provider 10/09/22 [place] [address] [place] [facility] 300 [place] [address] Assigned Musculoskeletal Provider 10/09/22 Alfonso Renteria MD 5775 [facility] 200 [place], [place] 116416 Assigned Neuroscience Provider 04/02/23 Radha Lomeli APRN LEAD SYSTEMS ARCHITECT [address] [place] [address] Assigned Heart and Vascular Provider 05/28/23 Jelena David OD [address] [facility] [address] [place], [place] [address] Ophthalmology 06/15/23 Pao Joseph, VJ Personal Advocate & Liaison (PAL) Nurse 08/01/23 Esha Grimm PAUcheC [address] [place] [phone] Assigned PCP 07/16/23 documented as of this encounter
--- OUTSIDE RECORDS SUMMARY | 2023-10-28 16:40 | XMS_ITS | Encounter Summary ---
Author Name Unknown Organization [facility] Address [address] [place] [address] Care Team Providers Care Hotel Reservation Agent Name Role Phone DesirKendrickDiana T [facility] Unavailable [phone] Rain GalavizC Unavailable Tavia Wyatt MD Unavailable Unavailable Erica Farrell APRN PHOTOGRAPHER APPRENTICE LITHOGRAPHIC Unavailable Rich Barrett MD Unavailable Neil Kent MD Unavailable Diana Desir [facility] Unavailable Livan Sharif MD Unavailable Catherine Cm MD Unavailable + Valery Veronica-C Unavailable [phone] Brea Quinn NUCLEAR MEDICINE PET CT TECHNOLOGIST PHOTOGRAPHER APPRENTICE LITHOGRAPHIC Unavailable Brea Quinn NUCLEAR MEDICINE PET CT TECHNOLOGIST PHOTOGRAPHER APPRENTICE LITHOGRAPHIC Unavailable [phone] Jose Francisco Johnson MD Unavailable Sydnie Martinez RN Unavailable Unavailable Alfonso Renteria MD Unavailable + [phone] Esha Grimm PA-C Primary Care Provider Cheng Todd PA-C Unavailable Radha Lomeli APRN PHOTOGRAPHER APPRENTICE LITHOGRAPHIC Unavailable [phone] Jelena David OD Unavailable Pao Joseph RN Unavailable Unavailable Esha Grimm PA-C Unavailable [phone] Valery Veronica PA-C Unavailable [phone] Rey Tay MD Unavailable Rocky Zepeda DO Unavailable Philip Dumont MD Unavailable [phone] Reason for Visit * Reason Onset Date Comments Appointment 06/17/2023 Encounter Details Date Type Department Care Team (Late st Contact Info) Description 06/17/2023 Telephone [facility] [address] [place] [address] Esha Grimm PA-C [id number] [place] [address] Appointment Social History Tobacco Use Types [...] often do you attend chur ch or judaism services? 1 to 4 times per year 03/10/2023 Do you belong to any clubs o r organizations such as jewish groups, unions, fraternal or athletic groups, [...] Answer Date Recorded PHQ-2 Score 0 06/20/2023 [facility] - Occupational Stress [...] exercise at this level? 30 min 03/10/2023 [place] Depression Scale Answer Date Recorded [place] Depression Score 5 01/14/2021 Last EPDS Self [...] they are all full today Lulu Day/ Radiagraph Operator US RIDER * Telephone Encounter - Rosio Eller - 06/17/2023 7:13 AM CST Reason for Call: Appointment Request Patient requesting this type of appt: follow-up breast pain Requested provider: any Reason patient unable to be scheduled: Not within requested timeframe When does patient want to be seen/preferred time: today or Tuesday Comments: patient wondering if she could be worked in [facility] Could we send this information to you in [place] or would you prefer to receive a phone call?: Patient would prefer a phone call Okay to leave a detailed message?: Yes at Home number on file [phone] (home) Call taken on 06/17/2023 at 7:13 AM by Rosio Eller US RIDER documented in this encounter Plan of Treatment Upcoming Encounters Date Type Department Care Team (Late st Contact Info) Description 11/01/2023 8:00 AM CDT Appointment [facility] [address] [place] [address] Lauren Claudio PA-C [address] [place], [place] [phone] 11/03/2023 8:00 AM CDT Office Visit [address] [phone] Valery Veronica PA-C 909 [place] [address] 11/29/2023 8:00 AM CDT Office Visit [facility] [address] [place] [phone] Esha Grimm PA-C [address] [place] [phone] 12/19/2023 11:30 AM CDT Hospital Encounter [address] [phone] Rocky Zepeda DO 500 [place], [place] [address] 12/19/2023 11:30 AM CDT - 12/19/2023 12:00 PM CDT Surgery [address] [phone] Rocky Zepeda DO 500 [place], [place] [address] Esophagoscopy, gastroscopy, duodenoscopy (EGD), combined 01/02/2024 8:00 AM CDT Office Visit [facility] [address] [phone] Lauren Claudio PA-C [address] [place], [place] [phone] Kelli Perez MD [address] [place] [address] Scheduled Procedures Name Priority Associated Diagnoses Date/Ti sd ESOPHAGOGASTRODUODENOSCOPY Eosinophilic esophagitis Esophageal dysphagia 12/19/2023 11:30 AM CDT documented as of this encounter Visit Diagnoses Not on filedocumented in this encounter Additional Health Concerns Assessment Noted Time PHQ-9 Depression Total Score: 6 05/16/20 9:29 AM CIRCUS RIDER documented as of this encounter Care Teams Hotel Reservation Agent Relationship Specialty Start Date End Date Esha Grimm PA-C [address] [place] [phone] PCP - General Family Medicine 05/04/23 Diana Desir, [facility] [address] [place], [place] [address] Pharmacist Pharmacist 04/17/21 Rain Galaviz PA-C [address] [place] [address] [address] [place] [address] Physician Cloth Bleaching Range Tender Dermatology 04/28/21 Tavia Wyatt MD [address] [place] [address] [address] [place] [address] Dermatology 07/14/21 Erica Farrell APRN PHOTOGRAPHER APPRENTICE LITHOGRAPHIC 6405 [facility] [address] [place] [address] Nurse Practitioner Cardiovascular Disease 09/09/21 Rich Barrett MD 516 [facility] [address]A [place], [place] 12[address] Physician Ophthalmology 01/21/22 Neil Kent MD 500 [place] [address] Dermatology 02/24/22 [facility] 3033 [place] [address] Assigned [place] Pharmacist 04/07/22 Livan Sharif MD [address] 1439[address] Cardiovascular Disease 05/14/22 Catherine Cm MD 6405 [facility] [address] [address] Cardiovascular Disease 07/21/22 Valery Veronica, PAUcheC 909 [place], [place] [address] Physician Cloth Bleaching Range Tender Dermatology 07/21/22 Brea Quinn APRN PHOTOGRAPHER APPRENTICE LITHOGRAPHIC 500 [place] [address] Nurse Practitioner Dermatology 09/21/22 Brea Quinn APRN PHOTOGRAPHER APPRENTICE LITHOGRAPHIC 6401 [facility] [place] [address] Assigned Surgical Provider 10/09/22 [place] [address] [place] [address] Assigned Musculoskeletal Provider 10/09/22 Sydnie Martinez, VJ Personal Advocate & Liaison (PAL) Family Medicine 03/28/23 07/31/23 Alfonso Renteria MD 5775 [facility] [address] [place] [address] Assigned Neuroscience Provider 04/02/23 Cheng Todd PA-C [address] [place], [place] [phone] Assigned PCP 04/30/23 07/15/23 Radha Lomeli APRN PHOTOGRAPHER APPRENTICE LITHOGRAPHIC [address] [facility] [address] [place] [address] Assigned Heart and Vascular Provider 05/28/23 Jelena David OD [address] [facility] [address] Ophthalmology 06/15/23 Pao Joseph, VJ Personal Advocate & Liaison (PAL) Nurse 08/01/23 Esha Grimm PA-C [address] [place] [phone] Assigned PCP 07/16/23 Valery Veronica PA-C [address] [place] [address] Physician Cloth Bleaching Range Tender Dermatology 09/19/23 Rey Tay MD 9 [place], [place] 453915 Gastroenterology 09/20/23 Rocky Zepeda DO [address] [place] [address] [phone] Physician Gastroenterology 09/20/23 Philip Dumont MD [address] [place] [address] [phone] Physician Ophthalmology 09/22/23 documented as of this encounter
--- OUTSIDE RECORDS SUMMARY | 2023-10-28 16:40 | XMS_ITS | Encounter Summary ---
Author Name Unknown Organization [facility] Address [address] [place] [address] Care Team Providers Care Shellfish Sorter Name Role Phone DesirKendrickDiana T [facility] Unavailable Rain GalavizC Unavailable Tavia Wyatt MD Unavailable Unavailable Erica Farrell APRN ULTRASOUND MANAGER Unavailable Rich Barrett MD Unavailable Neil Kent MD Unavailable Diana Desir [facility] Unavailable [phone] Livan Sharif MD Unavailable Catherine Cm MD Unavailable + Valery Veronica-C Unavailable [phone] Brea Quinn SERVICE PERSON ULTRASOUND MANAGER Unavailable Brea Quinn SERVICE PERSON ULTRASOUND MANAGER Unavailable Jose Francisco Johnson MD Unavailable Sydnie Martinez RN Unavailable Unavailable Alfonso Renteria MD Unavailable + [phone] Esha Grimm PA-C Primary Care Provider [phone] Cheng Todd PA-C Unavailable Radha Lomeli APRN ULTRASOUND MANAGER Unavailable [phone] Jelena David OD Unavailable Pao Joseph RN Unavailable Unavailable Alfa Eshalincoln Medina PA-C Unavailable [phone] Valery Veronica PA-C Unavailable Rey Tay MD Unavailable Rocky Zepeda DO Unavailable Philip Dumont MD Unavailable Encounter Details Date Type Department Care Team (Late st Contact Info) Description 06/17/2023 MyC Medical Advice M [facility] [address] [place] [address] Alfonso Renteria MD 5782 [facility] [address] 200 [place] [address] Social History Tobacco Use Types [...] Answer Date Recorded PHQ-2 Score 0 06/20/2023 [facility] - Occupational Stress Questionnaire Answer Date Recorded [...] exercise at this level? 30 min 03/10/2023 [place] Depression Scale Answer Date Recorded [place] Depression Score 5 01/14/2021 Last EPDS Self [...] calling to follow up on the below [facility] message. Patient continues to have a lot of dizzyness and neck pain. SACTIONAL [place] documented in this encounter Plan of Treatment Upcoming Encounters Date Type Department Care Team (Late st Contact Info) Description 11/01/2023 8:00 AM CDT Appointment [facility] [address] [place] [address] Lauren Claudio PA-C [address] [place] [address] 11/03/2023 8:00 AM CDT Office Visit [facility] 830 [place] [phone] Valery Veronica PA-C 909 [place] [address] 11/29/2023 8:00 AM CDT Office Visit [facility] [address] [place] [phone] Esha Grimm PA-C [address] [place] [address] 12/19/2023 11:30 AM CDT Hospital Encounter [address] [phone] Rocky Zepeda DO 500 [place], [place] [address] 12/19/2023 11:30 AM CDT - 12/19/2023 12:00 PM CDT Surgery [address] [phone] Rocky Zepeda DO 500 [place], [place] [address] Esophagoscopy, gastroscopy, duodenoscopy (EGD), combined 01/02/2024 8:00 AM CDT Office Visit [facility] [address] [place] [phone] Lauren Claudio PA-C [address] [place], [place] [phone] Kelli Perez MD [address] [place] [address] 0799[address] Scheduled Procedures Name Priority Associated Diagnoses Date/Ti ne ESOPHAGOGASTRODUODENOSCOPY Eosinophilic esophagitis Esophageal dysphagia 12/19/2023 11:30 AM CDT documented as of this encounter Visit Diagnoses Not on filedocumented in this encounter Additional Health Concerns Assessment Noted Time PHQ-9 Depression Total Score: 6 05/16/20 23 9:29 AM TRANSACTIONAL [place] documented as of this encounter Care Teams Shellfish Sorter Relationship Specialty Start Date End Date Esha Grimm PA-C [address] [place] [address] PCP - General Family Medicine 05/04/23 Diana Desir, [facility] [address] [place] [address] Pharmacist Pharmacist 04/17/21 Rain Galaviz PA-C [address] [place] [address] [address] [place] [address] Physician Detention Officer Dermatology 04/28/21 Tavia Wyatt MD [address] [place] [address] [place] [address] Dermatology 07/14/21 Erica Farrell APRN ULTRASOUND MANAGER [address] [place] [address] Nurse Practitioner Cardiovascular Disease 09/09/21 Rich Barrett MD [address] [place] [address] 426485 Physician Ophthalmology 01/21/22 Neil Kent MD 500 [place], [place] [address]395 Dermatology 02/24/22 Diana Desir, [facility] [address] [place] [address] Assigned MTM Pharmacist 04/07/22 Livan Sharif MD [address] [facility] [address] [place] [address] Cardiovascular Disease 05/14/22 Catherine Cm MD 6405 [facility] [address] [place] [address] Cardiovascular Disease 07/21/22 Valery Veronica PA-C 909 [place], [place] 9[address]25 Physician Detention Officer Dermatology 07/21/22 Brea Quinn APRN ULTRASOUND MANAGER [address] [place] [address] 688815 Nurse Practitioner Dermatology 09/21/22 Brea Quinn APRN ULTRASOUND MANAGER 6401 [place] [address] Assigned Surgical Provider 10/09/22 [place] [address] [facility] 300 [place] [address] Assigned Musculoskeletal Provider 10/09/22 Sydnie Martinez RN Personal Advocate & Liaison (PAL) Family Medicine 03/28/23 07/31/23 Alfonso Renteria MD 5775 [facility] 200 [place] [address] Assigned Neuroscience Provider 04/02/23 Cheng Todd PA-C [address] [place] [address] Assigned PCP 04/30/23 07/15/23 Radha Lomeli APRN ULTRASOUND MANAGER [address] [place] [address] Assigned Heart and Vascular Provider 05/28/23 Jelena David OD [address] [place] [address] MD Ophthalmology 06/15/23 Pao Joseph, VJ Personal Advocate & Liaison (PAL) Nurse 08/01/23 Esha Grimm PA-C [address] [place] [phone] Assigned PCP 07/16/23 Valery Veronica PA-C [address] [place] [address] 674015 Physician Detention Officer Dermatology 09/19/23 Rey Tay MD [address] [place] [address] 010795 Gastroenterology 09/20/23 Rocky Zepeda DO [address] [place] [address] 375345 Physician Gastroenterology 09/20/23 Philip Dumont MD [address] [place] [address] 007335 Physician Ophthalmology 09/22/23 documented as of this encounter
--- OUTSIDE RECORDS SUMMARY | 2023-10-28 16:40 | XMS_ITS | Encounter Summary ---
Author Name Unknown Organization [place] Address [address] [place] [address] Care Team Providers Care Dice Dealer Name Role Phone DesirKendrickDiana T [facility] Unavailable Rain GalavizC Unavailable Tavia Wyatt MD Unavailable Unavailable Erica Farrell APRN CONTENT PRODUCER Unavailable Rich Barrett MD Unavailable Neil Kent MD Unavailable Diana Desir [facility] Unavailable Livan Sharif MD Unavailable Catherine Cm MD Unavailable + Valery Veronica-C Unavailable [phone] Brea Quinn VICE PRESIDENT GLOBAL ADVERTISING SALES CONTENT PRODUCER Unavailable Brea Quinn VICE PRESIDENT GLOBAL ADVERTISING SALES CONTENT PRODUCER Unavailable Jose Francisco Johnson MD Unavailable Sydnie Martinez RN Unavailable Unavailable Alfonso Renteria MD Unavailable + [phone] Esha Grimm PA-C Primary Care Provider Radha Lomeli VICE PRESIDENT GLOBAL ADVERTISING SALES CONTENT PRODUCER Unavailable Jelena David OD Unavailable Esha Grimm PA-C Unavailable [phone] Encounter Details Date Type Department Care [...] week 03/10/2023 How often do you attend [facility] or orthodox services? 1 to 4 times [...] Answer Date Recorded PHQ-2 Score 0 06/20/2023 [facility] [place] of Occupat ional Health - Occupational Stress [...] exercise at this level? 30 min 03/10/2023 [place] Depression Scale Answer Date Recorded [place] Depression Score 5 01/14/2021 Last EPDS [...] Info) Description 11/01/2023 8:00 AM CDT Appointment [facility] Imaging [address] [place] [address] Lauren Claudio PA-C [address] [place] [address] 11/03/2023 8:00 AM CDT Office Visit [address] [address] Valery Veronica PA-C 909 [place] [address] 11/29/2023 8:00 AM CDT Office Visit [facility] [address] [place] [phone] Esha Grimm PA-C [address] [place] [address] 12/19/2023 11:30 AM CDT Hospital Encounter [address] [phone] Rocky Zepeda DO 500 [place], [place] 406755 12/19/2023 11:30 AM CDT - 12/19/2023 12:00 PM CDT Surgery [address] [phone] Rocky Zepeda DO 500 [place], [place] 622505 Esophagoscopy, gastroscopy, duodenoscopy (EGD), combined 01/02/2024 8:00 AM CDT Office Visit [facility] [address] [phone] Lauren Claudio PA-C [address] [place], [place] [phone] Kleli Perez MD [address] [place], [place] 987964 Scheduled Procedures Name Priority Associated Diagnoses Date/Ti md ESOPHAGOGASTRODUODENOSCOPY Eosinophilic esophagitis Esophageal dysphagia 12/19/2023 11:30 AM CDT documented as of this encounter Visit Diagnoses Not on filedocumented in this encounter Additional Health Concerns Assessment Noted Time PHQ-9 Depression Total Score: 4 06/20/20 23 8:40 AM BEHAVIORAL SCIENCE CHAIR documented as of this encounter Care Teams Dice Dealer Relationship Specialty Start Date End Date Esha Grimm PA-C [address] [place] [address] PCP - General Family Medicine 05/04/23 Diana Desir, [facility] [address] [place], [place] 7[address]86 Pharmacist Pharmacist 04/17/21 Rain Galaviz PA-C [address] [place] [address] [address] [place] [address] Physician Organ Tuner Electronic Dermatology 04/28/21 Tavia Wyatt MD [address] [place] [address] [place]MA [place]SON [address] Dermatology 07/14/21 Erica Farrell APRN CONTENT PRODUCER 6405 [facility] [address] [place] 0[address]195 Nurse Practitioner Cardiovascular Disease 09/09/21 Rich Barrett MD 516 [facility] 9A [place], [place] 147215 Physician Ophthalmology 01/21/22 Neil Kent MD 500 [place], [place] 309845 Dermatology 02/24/22 Diana Desir, [facility] [address] [place], [place] 957376 Assigned MTM Pharmacist 04/07/22 Livan Sharif MD [address], [facility] [address] [place], [place] 727405 Cardiovascular Disease 05/14/22 Catherine Cm MD [address] [place] [place] 9529500 [place], [place] 839605 Cardiovascular Disease 07/21/22 Valery Veronica, PA-C 909 [place], [place] 06[address]15 Physician Organ Tuner Electronic Dermatology 07/21/22 Brea Quinn APRN CONTENT PRODUCER 500 [place] [address] Nurse Practitioner Dermatology 09/21/22 Brea Quinn APRN CONTENT PRODUCER 6401 [place] [address] Assigned Surgical Provider 10/09/22 [place] [address] [place] [address] 300 [place] [address] Assigned Musculoskeletal Provider 10/09/22 Sydnie Martinez RN Personal Advocate & Liaison (PAL) Family Medicine 03/28/23 07/31/23 Alfonso Renteria MD [address] [facility] 200 [place], [place] 177516 Assigned Neuroscience Provider 04/02/23 Radha Lomeli APRN CONTENT PRODUCER [address] [place] [address] Assigned Heart and Vascular Provider 05/28/23 Jelena David OD 3305 [facility] [place] [id number] Ophthalmology 06/15/23 Esha Grimm, PA-C [address] [facility] [phone] Assigned PCP 07/16/23 documented as of this encounter
--- OUTSIDE RECORDS SUMMARY | 2023-10-28 16:41 | XMS_ITS | Encounter Summary ---
Author Name Unknown Organization [place] Address [address] [place] [address] Care Team Providers Care Supervisor Post Wave Name Role Phone DesirKendrickDiana T [facility] Unavailable Rain GalavizC Unavailable Tavia Wyatt MD Unavailable Unavailable Erica Farrell APRN ENGINEERING CONSULTANT Unavailable Rich Barrett MD Unavailable Neil Kent MD Unavailable Diana eDsir [facility] Unavailable Livan Sharif MD Unavailable Catherine Cm MD Unavailable + Valery Veronica-C Unavailable [phone] Brea Quinn VIDEO PRODUCTION INTERN ENGINEERING CONSULTANT Unavailable [phone] Brea Quinn VIDEO PRODUCTION INTERN ENGINEERING CONSULTANT Unavailable [phone] Jose Francisco Johnson MD Unavailable Sydnie Martinez RN Unavailable Unavailable Alfonso Renteria MD Unavailable + [phone] Esha Grimm PA-C Primary Care Provider Cheng Todd PA-C Unavailable [phone] Radha Lomeli APRN ENGINEERING CONSULTANT Unavailable [phone] Jelena David OD Unavailable Pao Joseph RN Unavailable Unavailable Alfa Eshalincoln Medina PA-C Unavailable [phone] Valery Veronica PA-C Unavailable [phone] Rey Tay MD Unavailable Rocky Zepeda DO Unavailable Philip Dumont MD Unavailable [phone] Encounter Details Date Type Department Care Team (Late st Contact Info) Description 06/15/[address] [facility] [address] 4th [place] [address] Doris Levi Social History Tobacco [...] often do you attend chur ch or restorationist services? 1 to 4 times [...] Answer Date Recorded PHQ-2 Score 1 05/16/2023 [facility] - Occupational Stress Questionnaire Answer [...] exercise at this level? 30 min 03/10/2023 Accident Depression Scale Answer Date Recorded Accident Depression Score 5 01/14/2021 Last EPDS Self [...] Info) Description 11/01/2023 8:00 AM CDT Appointment [facility] Imaging [address] [place] [address] Lauren Claudio PA-C [address] [place], [place] [phone] 11/03/2023 8:00 AM CDT Office Visit [address] [phone] Valery Veronica PA-C [address] [place] [address] 965015 11/29/2023 8:00 AM CDT Office Visit [facility] [address] [place] [phone] Esha Grimm PA-C [address] [place] [phone] 12/19/2023 11:30 AM CDT Hospital Encounter [address] 5th [place] [phone] Rocky Zepeda, DO 500 [place] [address] 12/19/2023 11:30 AM CDT - 12/19/2023 12:00 PM CDT Surgery [facility] 909 [facility] 5th [place] [phone] Rocky Zepeda, DO 500 [place] [address] Esophagoscopy, gastroscopy, duodenoscopy (EGD), combined 01/02/2024 8:00 AM CDT Office Visit [address] [phone] Lauren Claudio PA-C [address] [place], [place] [phone] Kelli Perez MD [address] [address]83[address] Scheduled Procedures Name Priority Associated Diagnoses Date/Ti mn ESOPHAGOGASTRODUODENOSCOPY Eosinophilic esophagitis Esophageal dysphagia 12/19/2023 11:30 AM CDT documented as of this encounter Visit Diagnoses Not on filedocumented in this encounter Additional Health Concerns Assessment Noted Time PHQ-9 Depression Total Score: 6 05/16/20 23 9:29 AM POLICE SHIFT COMMANDER documented as of this encounter Care Teams Supervisor Post Wave Relationship Specialty Start Date End Date Esha Grimm PA-C [address] [place] [phone] PCP - General Family Medicine 05/04/23 Diana Desir, [facility] 30[address] [place] [address] Pharmacist Pharmacist 04/17/21 Rain Galaviz PA-C [address] [place] [address] [address] [place] [address] Physician Community Fundraiser Dermatology 04/28/21 Tavia Wyatt MD [address] [place] [address] [place] [address] Dermatology 07/14/21 Erica Farrell APRN ENGINEERING CONSULTANT [address] [place] [address] Nurse Practitioner Cardiovascular Disease 09/09/21 Rich Barrett MD [address] [place] [address] 312845 Physician Ophthalmology 01/21/22 Neil Kent MD 500 [place], [place] 826785 Dermatology 02/24/22 Diana Desir, [facility] [address] [place] [address] Assigned MTM Pharmacist 04/07/22 Livan Sharif MD [address] [place] [address] Cardiovascular Disease 05/14/22 Catherine Cm MD [address] [place] 128065 Cardiovascular Disease 07/21/22 Valery Veronica PA-C 909 [place] [address] Physician Community Fundraiser Dermatology 07/21/22 Brea Quinn APRN ENGINEERING CONSULTANT 500 [place], [place] 127365 Nurse Practitioner Dermatology 09/21/22 Brea Quinn APRN ENGINEERING CONSULTANT 6401 [facility] [place] 593472 Assigned Surgical Provider 10/09/22 [place] [address] [facility] 300 [place], [place] 026247 Assigned Musculoskeletal Provider 10/09/22 Sydnie Martinez RN Personal Advocate & Liaison (PAL) Family Medicine 03/28/23 07/31/23 Alfonso Renteria MD 5775 [facility] 200 [place] [address] Assigned Neuroscience Provider 04/02/23 Cheng Todd PA-C [address] [place], [place] 559[address] Assigned PCP 04/30/23 07/15/23 Radha Lomeli APRN ENGINEERING CONSULTANT 6405 [facility] [address] [place] [address] Assigned Heart and Vascular Provider 05/28/23 Jelena David OD [address] [facility] [place] [address] MD Ophthalmology 06/15/23 Pao Joseph, RN Personal Advocate & Liaison (PAL) Nurse 08/01/23 Esha Grimm PA-C [address] [place] [address]83 Assigned PCP 07/16/23 Valery Veronica PA-C 909 [place] [address] Physician Community Fundraiser Dermatology 09/19/23 Rey Tay MD [address] [place] [address] MD Gastroenterology 09/20/23 Rocky Zepeda DO [address] [place] [address] 093235 Physician Gastroenterology 09/20/23 Philip Dumont MD [address] [place] [address] 314205 Physician Ophthalmology 09/22/23 documented as of this encounter
--- OUTSIDE RECORDS SUMMARY | 2023-10-28 16:41 | XMS_ITS | Encounter Summary ---
Author Name Unknown Organization [place] Address [address] [place] [address] Care Team Providers Care Cover Marker Name Role Phone AliyahcarolynMarija APRN PRODUCT SAFETY TESTER Unavailable Unavail able Diana Desir [facility] Unavailable [phone] Rain Galavzi PA-C Unavailable [phone] Tavia Wyatt MD Unavailable Unavailable Erica Farrell APRN PRODUCT SAFETY TESTER Unavailable Rich Barrett MD Unavailable Neil Kent MD Unavailable Diana Desir [facility] Unavailable Livan Sharif MD Unavailable Catherine Cm MD Unavailable + Valery Veronica PA-C Unavailable [phone] Brea Quinn MANAGER IMPLEMENTATION PRODUCT SAFETY TESTER Unavailable Brea Quinn MANAGER IMPLEMENTATION PRODUCT SAFETY TESTER Unavailable [phone] Jose Francisco Johnson MD Unavailable Catherine Cm MD Unavailable + Sydnie Martinez RN Unavailable Unavailable Alfonso Renteria MD Unavailable + [phone] Esha Grimm PA-C Primary Care Provider Cheng Todd PA-C Unavailable Armani Radha Stovall APRN PRODUCT SAFETY TESTER Unavailable [phone] Jelena David OD Unavailable Pao Joseph RN Unavailable Unavailable Esha Grimm PA-C Unavailable [phone] Valery Veronica PA-C Unavailable [phone] Rey Tay MD Unavailable Rocky Zepeda DO Unavailable Philip Dumont MD Unavailable [phone] Encounter Details Date Type Department Care Team (Late st Contact Info) Description 04/18/2023 MyC Medical Advice [facility] [address] [address] Mary Calvo Social History Tobacco [...] How often do you attend chur or alevism services? 1 to 4 times [...] Answer Date Recorded PHQ-2 Score 0 03/10/2023 [facility] of Occupat ional [...] exercise at this level? 30 min 03/10/2023 [place] Depression Scale Answer Date Recorded [place] Depression Score 5 01/14/2021 Last EPDS Self [...] Info) Description 11/01/2023 8:00 AM CDT Appointment [facility] Imaging [address] [place] [address] Lauren Claudio PA-C [address] [place] [address] 11/03/2023 8:00 AM CDT Office Visit [address] [phone] Valery Veronica PA-C 909 [place] [address] 11/29/2023 8:00 AM CDT Office Visit [facility] [address] [place] [place] [phone] Esha Grimm PA-C [address] [place] [phone] 12/19/2023 11:30 AM CDT Hospital Encounter M [address] [phone] Rocky Zepeda DO 500 [place] [address] 12/19/2023 11:30 AM CDT - 12/19/2023 12:00 PM CDT Surgery [address] [phone] Rocky Zepeda DO 500 [place], [place] 926445 Esophagoscopy, gastroscopy, duodenoscopy (EGD), combined 01/02/2024 8:00 AM CDT Office Visit [address] [phone] Lauren Claudio PA-C [address] [place], [place] [phone] Kelli Perez MD [address] [place] [address] [phone] Scheduled Procedures Name Priority Associated Diagnoses Date/Ti ga ESOPHAGOGASTRODUODENOSCOPY Eosinophilic esophagitis Esophageal dysphagia 12/19/2023 11:30 AM CDT documented as of this encounter Visit Diagnoses Not on filedocumented in this encounter Additional Health Concerns Assessment Noted Time PHQ-9 Depression Total Score: 5 03/10/20 23 6:49 AM CDT documented as of this encounter Care Teams Cover Marker Relationship Specialty Start Date End Date Esha Grimm PA-C [address] [place] [address] PCP - General Family Medicine 05/04/23 Marija Edgar APRN PRODUCT SAFETY TESTER Assigned PCP 06/08/20 04/29/23 Diana Desir, [facility] [address] [place] [address] Pharmacist Pharmacist 04/17/21 Rain Galaviz PA-C [address] [place] [address] [address] [place] [address] Physician Nicu Rn Dermatology 04/28/21 Tavia Wyatt MD [address] [place] [address] DR [facility] [address] Dermatology 07/14/21 Erica Farrell APRN PRODUCT SAFETY TESTER 6405 [facility] [address] [place], [place] 397695 Nurse Practitioner Cardiovascular Disease 09/09/21 Rich Barrett MD 516 [facility] 9A [place], [place] 833265 Physician Ophthalmology 01/21/22 Neil Kent MD 500 [place], [place] 743865 Dermatology 02/24/22 Diana Desir, [facility] [address] [place] [address] Assigned MTM Pharmacist 04/07/22 Livan Sharif MD [address], [facility] [address] [place] [address] Cardiovascular Disease 05/14/22 Catherine Cm MD [address] [place] 257595 Cardiovascular Disease 07/21/22 Valery Veronica, PAUcheC [address] [place] [address] 341085 Physician Nicu Rn Dermatology 07/21/22 Brea Quinn APRN PRODUCT SAFETY TESTER 500 [place], [place] 643065 Nurse Practitioner Dermatology 09/21/22 Brea Quinn APRN PRODUCT SAFETY TESTER 6401 [place], [place] 041842 Assigned Surgical Provider 10/09/22 [place] [address] 681717 Assigned Musculoskeletal Provider 10/09/22 Catherine Cm MD [address] [place] [address] Assigned Heart and Vascular Provider 11/13/22 05/27/23 Sydnie Martinez, RN Personal Advocate & Liaison (PAL) Family Medicine 03/28/23 07/31/23 Alfonso Renteria MD [address] [place] [address] [address] [address] Assigned Neuroscience Provider 04/02/23 Cheng Todd PA-C 113[address] [place], [place] 14822124 Assigned PCP 04/30/23 07/15/23 Radha Lomeli APRN PRODUCT SAFETY TESTER 6405 [facility] [address] [place] [address] Assigned Heart and Vascular Provider 05/28/23 Jelena David OD 3[address] [facility] [place] [address] MD Ophthalmology 06/15/23 Pao Joseph, VJ Personal Advocate & Liaison (PAL) Nurse 08/01/23 Esha Grimm PA-C [address] [place] [address]-287[address]283 Assigned PCP 07/16/23 Valery Veronica PA-C [address] [place] [address] 926575 Physician Nicu Rn Dermatology 09/19/23 Rey Tay MD [address] [place] [address] 321845 Gastroenterology 09/20/23 Rocky Zepeda DO [address] [place] [address] 208165 Physician Gastroenterology 09/20/23 Philip Dumont MD [address] [place] [address] 683415 Physician Ophthalmology 09/22/23 documented as of this encounter
--- OUTSIDE RECORDS SUMMARY | 2023-10-28 16:41 | XMS_ITS | Encounter Summary ---
Author Name Unknown Organization [place] Address [address] [place] [address] Care Team Providers Care Credit Processor Name Role Phone Lita Oseguera Unavailable Unavailable Marija Edgar APRN PAPERHANGER CONTRACTOR Primary Care Provider U mandaailMarija Callaway APRN, CNP Unavailable Unavail able Keisha Dotson MD Unavailable [phone] Diana Desir [facility] Unavailable [phone] Rain Galaviz PA-C Unavailable [phone] Tavia Wyatt MD Unavailable Unavailable Erica Farrell APRN PAPERHANGER CONTRACTOR Unavailable Rich Barrett MD Unavailable [phone] Neil Kent MD Unavailable Diana Desir [facility] Unavailable [phone] Livan Sharif MD Unavailable Catherine Cm MD Unavailable + Valery Veronica PA-C Unavailable [phone] Brea Quinn APRN PAPERHANGER CONTRACTOR Unavailable Brea Quinn APRN PAPERHANGER CONTRACTOR Unavailable Jose Francisco Johnson MD Unavailable Catherine Cm MD Unavailable + Sydnie Martinez RN Unavailable Unavailable Alfonso Renteria MD Unavailable [phone] Esha GrimmC Primary Care Provider Cheng Todd PAUcheC Unavailable [phone] Armani Radha Stovall APRN PAPERHANGER CONTRACTOR Unavailable [phone] Jelena David OD Unavailable [phone] Pao Joseph RN Unavailable Unavailable Esha Grimm PA-C Unavailable [phone] Valery VeronicaC Unavailable Rey Tay MD Unavailable Rocky Zepeda DO Unavailable Philip Dumont MD Unavailable [phone] Encounter Details Date Type Department Care Team (Late st Contact Info) Description 01/28/2023 MyC Medical Advice [facility] [address] [place] [address] Margaret Rendon, RN Social History Tobacco Use [...] How often do you attend muslim or catholic serv ices? Never 09/22/2021 Do you belong to any clubs o r organizations such as muslim groups, unions, fraDoubleVerify or athletic groups, or school groups? No [...] Answer Date Recorded PHQ-2 Score 1 10/11/2022 [facility] of Occupat ional Health - [...] slept in a long-term (including now)? No 09/22/2021 Bunn Depression Scale Answer Date Recorded Bunn Depression Score 5 01/14/2021 Last EPDS Self [...] [facility] [address] [place] [phone] Lauren Claudio, PABaldo [address] [place] [address] 11/03/2023 8:00 AM CDT Office Visit [facility] 830 [place] [phone] Valery Veronica PA-C [address] [place] [address] 11/29/2023 8:00 AM CDT Office Visit [facility] [address] [place] [phone] Esha Grimm PA-C [address] [place] [address] 12/19/2023 11:30 AM CDT Hospital Encounter [address] [phone] Rocky Zepeda DO 500 [place] [address] 12/19/2023 11:30 AM CDT - 12/19/2023 12:00 PM CDT Surgery [address] [phone] Rocky Zepeda DO 500 [place] [address] Esophagoscopy, gastroscopy, duodenoscopy (EGD), combined 01/02/2024 8:00 AM CDT Office Visit [facility] [place] [address] [place] [phone] Lauren Claudio PA-C [address] [place], [place] [phone] Kelli Perez MD [address] [place] [address] Scheduled Procedures Name Priority Associated Diagnoses Date/Ti [...] as of this encounter Care Teams Credit Processor Relationship Specialty Start Date End Date Marija Edgar APRN PAPERHANGER CONTRACTOR PCP - General Nurse Practitioner 04/30/20 04/14/23 Esha Grimm PA-C [address] [place] [address] PCP - General Family Medicine 05/04/23 Lita Oseguera Personal Advocate & Liaison (PAL) 02/28/20 03/27/23 Marija Edgar APRN PAPERHANGER CONTRACTOR Assigned PCP 06/08/20 04/29/23 Keisha Dotson MD 909 [place] [address] Assigned Neuroscience Provider 06/04/20 04/01/23 Diana Desir, [facility] [address] [place] [address] Pharmacist Pharmacist 04/17/21 Rain Galaviz PA-C [address] [facility] [address] [place] [address] Physician Fastener Sewing Machine Operator Dermatology 04/28/21 Tavia Wyatt MD [address] [place] [address] [address] [facility] [place] [address] Dermatology 07/14/21 Erica Farrell APRN PAPERHANGER CONTRACTOR [address] [place], [place] 675615 Nurse Practitioner Cardiovascular Disease 09/09/21 Rich Barrett MD [address] 128795 Physician Ophthalmology 01/21/22 Neil Kent MD 500 [place], [place] 519405 Dermatology 02/24/22 [facility] 3033 [place], [place] 015216 Assigned MTM Pharmacist 04/07/22 Livan Sharif MD [address] [address] Cardiovascular Disease 05/14/22 Catherine Cm MD [address] 774465 Cardiovascular Disease 07/21/22 Valery Veronica, PA-C [address] [place] [address] 006475 Physician Fastener Sewing Machine Operator Dermatology 07/21/22 Brea Quinn APRN PAPERHANGER CONTRACTOR 500 [place], [place] 704375 Nurse Practitioner Dermatology 09/21/22 Brea Quinn APRN PAPERHANGER CONTRACTOR 6401 [facility] [place] [address] Assigned Surgical Provider 10/09/22 [place] [address] [place] [address] Assigned Musculoskeletal Provider 10/09/22 Catherine Cm MD [address] [place] [address] Assigned Heart and Vascular Provider 11/13/22 05/27/23 Sydnie Martinez RN Personal Advocate & Liaison (PAL) Family Medicine 03/28/23 07/31/23 Alfonso Renteria MD 5775 [facility] 200 [place], [place] 418806 Assigned Neuroscience Provider 04/02/23 Cheng Todd PA-C [address] [place] [address] Assigned PCP 04/30/23 07/15/23 Radha Lomeli APRN PAPERHANGER CONTRACTOR [address] [facility] [address] [place] 970365 Assigned Heart and Vascular Provider 05/28/23 Jelena David OD [address] [facility] [address] Ophthalmology 06/15/23 Pao Joseph, VJ Personal Advocate & Liaison (PAL) Nurse 08/01/23 Esha Grimm PA-C [address] [place] [address]267183 Assigned PCP 07/16/23 Valery Veronica PA-C [address] [place] [address] Physician Fastener Sewing Machine Operator Dermatology 09/19/23 Rey Tay MD [address] [place] [address] Gastroenterology 09/20/23 Rocky Zepeda DO [address] [place] [address] [id number] Physician Gastroenterology 09/20/23 Pihlip Dumont MD [address] [place] [address] 626965 Physician Ophthalmology 09/22/23 documented as of this encounter
--- OUTSIDE RECORDS SUMMARY | 2023-10-28 16:41 | XMS_ITS | Encounter Summary ---
Author Name Unknown Organization [place] Address [address] [place] [address] Care Team Providers Care Commercial Coordinator Name Role Phone Marija Edgar APRN GRADUATE TEACHING ASSOCIATE Primary Care Provider Marija Emery APRN, CNP Unavailable Unavail able Diana Desir [facility] Unavailable [phone] Rain Galaviz PA-C Unavailable [phone] Tavia Wyatt MD Unavailable Unavailable Erica Farrell APRN GRADUATE TEACHING ASSOCIATE Unavailable Rich Barrett MD Unavailable [phone] Neil Kent MD Unavailable Diana Desir [facility] Unavailable [phone] Livan Sharif MD Unavailable Catherine Cm MD Unavailable + Valery Veronica PA-C Unavailable [phone] Brea Quinn APRN GRADUATE TEACHING ASSOCIATE Unavailable [phone] Brea Quinn APRN GRADUATE TEACHING ASSOCIATE Unavailable [phone] Jose Francisco Johnson MD Unavailable Catherine Cm MD Unavailable + Sydnie Martinez RN Unavailable Unavailable Alfonso Renteria MD Unavailable [phone] Esha Grimm PA-C Primary Care Provider Cheng Todd PA-C Unavailable Radha Lomeli APRN GRADUATE TEACHING ASSOCIATE Unavailable Jelena David OD Unavailable Pao Joseph RN Unavailable Unavailable Esha Grimm PA-C Unavailable [phone] Valery VeronicaC Unavailable Rey Tay MD Unavailable Rocky Zepeda DO Unavailable Philip Dumont MD Unavailable [phone] Reason for Visit * Reason Onset Date Comments Forms 04/13/2023 DMV (LOC) Encounter Details Date Type Department Care Team (Late st Contact Info) Description 04/13/2023 Telephone [facility] [address] [facility] [address] [place] [address] Alfonso Renteria MD [address] [facility] [address] [place] [address] Forms (DMV (LOC)) Social History [...] How often do you attend [facility] or judaism services? 1 to 4 times [...] Answer Date Recorded PHQ-2 Score 0 03/10/2023 [facility] [place] of Occupat ional Health - Occupational Stress [...] slept in a snf (including now)? No 03/10/2023 [place] Depression Scale Answer Date Recorded [place] Depression Score 5 01/14/2021 Last EPDS Self [...] are unable to fill this out because [place] Dept [employer] Public Safety will not accept it. It needs to be in your hand writing. The last one filed was 12/2021 andit said over 3 years ago. Notes in chart said last seizure July 2018. If that helps or if you had a more recent seizure please put that date in. We will watch for your updated form. Our fax number [phone]. Thank you. * Telephone Encounter - Magdalena Anne CMA - 04/13/2023 3:20 PM CDT Received DMV (LOC) Form to be completed. Form saved to Unidym drive, encounter routed. Magdalena Anne CMA documented in this encounter Plan of Treatment Upcoming Encounters Date Type Department Care Team (Late st Contact Info) Description 11/01/2023 8:00 AM CDT Appointment [facility] [address] [address] Lauren Claudio, ROVERTO [address] [place] [address] 11/03/2023 8:00 AM CDT [facility] Visit [facility] [address] [place] [phone] Valery Veronica PA-C [address] [place] [address] 11/29/2023 8:00 AM CDT [facility] [address] [place] [phone] Esha Grimm PA-C [address] [place] [address] 12/19/2023 11:30 AM CDT Hospital Encounter [address] [phone] Rocky Zepeda DO 500 [place] [address] 12/19/2023 11:30 AM CDT - 12/19/2023 12:00 PM CDT Surgery [address] [phone] Rocky Zepeda DO 500 [place] [address] Esophagoscopy, gastroscopy, duodenoscopy (EGD), combined 01/02/2024 8:00 AM CDT Office Visit [facility] [place] [address] [place] [phone] Lauren Claudio PA-C [address] [place], [place] [phone] Kelli Perez MD [address] [place] [address] Scheduled Procedures Name Priority Associated Diagnoses Date/Ti co ESOPHAGOGASTRODUODENOSCOPY Eosinophilic esophagitis Esophageal dysphagia 12/19/2023 11:30 AM CDT documented as of this encounter Visit Diagnoses Not on filedocumented in this encounter Additional Health Concerns Assessment Noted Time PHQ-9 Depression Total Score: 5 03/10/20 6:49 AM CDT documented as of this encounter Care Teams Commercial Coordinator Relationship Specialty Start Date End Date Marija Edgar APRN GRADUATE TEACHING ASSOCIATE PCP - General Nurse Practitioner 04/30/20 04/14/23 Esha Grimm PA-C [address] [place] [address] PCP - General Family Medicine 05/04/23 Marija Edgar APRN GRADUATE TEACHING ASSOCIATE Assigned PCP 06/08/20 04/29/23 Diana Desir, [facility] [address] [place], [place] [address] Pharmacist Pharmacist 04/17/21 Rain Galaviz PA-C [address] [place] [address] [address] [place] [address] Physician Dentist Dermatology 04/28/21 Tavia Wyatt MD [address] [place] [address] [address] [place] [address] Dermatology 07/14/21 Erica Farrell APRN GRADUATE TEACHING ASSOCIATE [address] [facility] [address] [place] [address] Nurse Practitioner Cardiovascular Disease 09/09/21 Rich Barrett MD 516 [facility] [place], [place] 367135 Physician Ophthalmology 01/21/22 Neil Kent MD 500 [place] [address] Dermatology 02/24/22 Diana Desir, [facility] [address] [place] [address] Assigned [place] Pharmacist 04/07/22 Livan Sharif MD [address] 885665 Cardiovascular Disease 05/14/22 Catherine Cm MD [address] 469[address] Cardiovascular Disease 07/21/22 Valery Veronica, PAUcheC 909 [place], [place] 625795 Physician Dentist Dermatology 07/21/22 Brea Quinn APRN GRADUATE TEACHING ASSOCIATE 500 [place] [address] Nurse Practitioner Dermatology 09/21/22 Brea Quinn APRN GRADUATE TEACHING ASSOCIATE [address] [place], [place] [address] [id number] Assigned Surgical Provider 10/09/22 [place] [address] [place] [address] Assigned Musculoskeletal Provider 10/09/22 Catherine Cm MD [address] [place] [address] Assigned Heart and Vascular Provider 11/13/22 05/27/23 Sydnie Martinez RN Personal Advocate & Liaison (PAL) Family Medicine 03/28/23 07/31/23 Alfonso Renteria MD [address] [facility] 200 [place], [place] 874346 Assigned Neuroscience Provider 04/02/23 Cheng Todd PA-C [address] [place], [place] 332[address] Assigned PCP 04/30/23 07/15/23 Radha Lomeli APRN GRADUATE TEACHING ASSOCIATE [address] [place] [address] Assigned Heart and Vascular Provider 05/28/23 Jelena David OD [address] [place] [address] Ophthalmology 06/15/23 Pao Joseph RN Personal Advocate & Liaison (PAL) Nurse 08/01/23 Esha Grimm PA-C [address] [place] [phone] Assigned PCP 07/16/23 Valery Veronica PA-C [address] [place] [address] 150585 Physician Dentist Dermatology 09/19/23 Rey Tay MD 909 [place], [place] 414905 MD Gastroenterology 09/20/23 Rocky Zepeda DO [address] [place] [address] 663915 Physician Gastroenterology 09/20/23 Philip Dumont MD 6 [place], [place] 880405 Physician Ophthalmology 09/22/23 documented as of this encounter
--- OUTSIDE RECORDS SUMMARY | 2023-10-28 16:41 | XMS_ITS | Encounter Summary ---
Author Name Unknown Organization [place] Address [address] [place] [address] Care Team Providers Care Rework Operator Name Role Phone Lita Oseguera Unavailable Unavailable Marija Edgar APRN SHEET ROCK APPLICATOR Primary Care Provider U mandaailMarija Callaway APRN, CNP Unavailable Unavail able Keisha Dotson MD Unavailable [phone] Diana Desir [facility] Unavailable [phone] Rain Galaviz PA-C Unavailable [phone] Tavia Wyatt MD Unavailable Unavailable Erica Farrell APRN SHEET ROCK APPLICATOR Unavailable Rich Barrett MD Unavailable [phone] Neil [place] MD Unavailable Diana Desir [facility] Unavailable [phone] Livan Sharif MD Unavailable Catherine Cm MD Unavailable + Valery Veronica PA-C Unavailable [phone] Brea Quinn APRN SHEET ROCK APPLICATOR Unavailable Brea Quinn APRN SHEET ROCK APPLICATOR Unavailable Jose Francisco Johnson MD Unavailable Catherine Cm MD Unavailable + Sydnie Martinez RN Unavailable Unavailable Alfonso Renteria MD Unavailable [phone] Esha Grimm PA-C Primary Care Provider Cheng ToddC Unavailable [phone] Armani Radha Stovall APRN SHEET ROCK APPLICATOR Unavailable Jelena David OD Unavailable Pao Joseph RN Unavailable Unavailable Esha Grimm PA-C Unavailable [phone] Valery VeronicaC Unavailable Rey Tay MD Unavailable Rocky Zepeda DO Unavailable Philip Dumont MD Unavailable Encounter Details Date Type Department Care Team (Late st Contact Info) Description 12/23/2022 [facility] Medical Advice [facility] [address] [place] [phone] Lauren Claudio PA-C [address] [place] [address] Social History Tobacco Use Types Packs/Day [...] How often do you attend scientologist or orthodoxy serv ices? Never 09/22/2021 Do you belong [...] Answer Date Recorded PHQ-2 Score 1 10/11/2022 [facility] of Occupat ional Health [...] a long term (including now)? No 09/22/2021 [place] Depression Scale Answer Date Recorded [place] Depression Score 5 01/14/2021 Last EPDS Self [...] AM CDT Appointment [facility] [address] [address] Lauren Claudio, PAUcheC [address] [place] [address] 11/03/2023 8:00 AM CDT Office Visit [facility] [address] [place] [phone] Valery Veronica PA-C [address] [place] [address] 11/29/2023 8:00 AM CDT Office Visit [facility] [address] [place] [phone] Esha Grimm PA-C [address] [place] [phone] 12/19/2023 11:30 AM CDT Hospital Encounter [address] [phone] Rocky Zepeda DO 500 [place], [place] 4[address] 12/19/2023 11:30 AM CDT - 12/19/2023 12:00 PM CDT Surgery [address] [phone] Rocky Zepeda DO 500 [place] [address] Esophagoscopy, gastroscopy, duodenoscopy (EGD), combined 01/02/2024 8:00 AM CDT Office Visit [facility] [place] [address] [place] [phone] Lauren Claudio PA-C [address] [place] [address] Kelli Perez MD [address] [place] [address] Scheduled Procedures Name Priority Associated Diagnoses Date/Ti [...] documented as of this encounter Care Teams Rework Operator Relationship Specialty Start Date End Date Marija Edgar APRN SHEET ROCK APPLICATOR PCP - General Nurse Practitioner 04/30/20 04/14/23 Esha Grimm PA-C [address] [place] [address] PCP - General Family Medicine 05/04/23 Lita Oseguera Personal Advocate & Liaison (PAL) 02/28/20 03/27/23 Marija Edgar APRN SHEET ROCK APPLICATOR Assigned PCP 06/08/20 04/29/23 Keisha Dotson MD 909 [place], [place] 172205 Assigned Neuroscience Provider 06/04/20 04/01/23 Diana Desir [facility] [address] [place], [place] 7[address]16 Pharmacist Pharmacist 04/17/21 Rain Galaviz PA-C [address] [place] [address] [address] [place] [address] Physician Contact Center Specialist Dermatology 04/28/21 Tavia Wyatt MD [address] [facility] [address] [place] [address] Dermatology 07/14/21 Erica Farrell APRN SHEET ROCK APPLICATOR [address] [place] 7[address] Nurse Practitioner Cardiovascular Disease 09/09/21 Rich Barrett MD 516 [facility] [place], [address] [address] Physician Ophthalmology 01/21/22 Neil Kent MD [address] [place] [address] Dermatology 02/24/22 Diana Desir, [facility] 3033 [place], [place] 648866 Assigned MTM Pharmacist 04/07/22 Livan Sharif MD [address] [place] [address] Cardiovascular Disease 05/14/22 Catherine Cm MD [address] [facility] [place] [address] Cardiovascular Disease 07/21/22 Valery Veronica, PA-C [address] [place] [address] 463225 Physician Contact Center Specialist Dermatology 07/21/22 Brea Quinn APRN SHEET ROCK APPLICATOR 500 [place] [address] Nurse Practitioner Dermatology 09/21/22 Brea Quinn APRN SHEET ROCK APPLICATOR [address] [facility] [place] [address] Assigned Surgical Provider 10/09/22 [place] [address] [place] [address] Assigned Musculoskeletal Provider 10/09/22 Catherine Cm MD [address] [place] [address] Assigned Heart and Vascular Provider 11/13/22 05/27/23 Sydnie Martinez RN Personal Advocate & Liaison (PAL) Family Medicine 03/28/23 07/31/23 Alfonso Renteria MD 5775 [facility] 200 [place] [address] Assigned Neuroscience Provider 04/02/23 Cheng Todd PA-C [address] [place] [address] Assigned PCP 04/30/23 07/15/23 Radha Lomeli APRN SHEET ROCK APPLICATOR [address] [facility] [address] [place] 0664[address] Assigned Heart and Vascular Provider 05/28/23 Jelena David OD 3305 [facility] [place] [place] [address] MD Ophthalmology 06/15/23 Pao Joseph, RN Personal Advocate & Liaison (PAL) Nurse 08/01/23 Esha Grimm PA-C [address] [place] [address] Assigned PCP 07/16/23 Valery Veronica PA-C 9 [place], [place] 866025 Physician Contact Center Specialist Dermatology 09/19/23 Rey Tay MD [address] [place] [address] 533965 Gastroenterology 09/20/23 Rocky Zepeda DO [address] [place] [address] 689325 Physician Gastroenterology 09/20/23 Philip Dumont MD [address] [place] [address] 081455 Physician Ophthalmology 09/22/23 documented as of this encounter
--- OUTSIDE RECORDS SUMMARY | 2023-10-28 16:41 | XMS_ITS | Encounter Summary ---
Author Name Unknown Organization [place] Address [address] [place] [address] Care Team Providers Care Pt Skilled Name Role Phone Marija Edgar APRN, CNP Primary Care Provider Marija Emery APRN, CNP Unavailable Unavail able Keisha Dotson MD Unavailable [phone] Diana Desir [facility] Unavailable [phone] Rain Galaviz PA-C Unavailable [phone] Tavia Wyatt MD Unavailable Unavailable Erica Farrell APRN GAS ENGINE MECHANIC Unavailable Rich Barrett MD Unavailable [phone] Neil Kent MD Unavailable Diana Desir [facility] Unavailable [phone] Livan Sharif MD Unavailable Catherine Cm MD Unavailable + Valery Veronica PA-C Unavailable [phone] Brea Quinn APRN GAS ENGINE MECHANIC Unavailable [phone] Brea Quinn APRN GAS ENGINE MECHANIC Unavailable [phone] Jose Francisco Johnson MD Unavailable Catherine Cm MD Unavailable + Sydnie Martinez RN Unavailable Unavailable Alfonso Renteria MD Unavailable [phone] Esha Grimm PA-C Primary Care Provider [phone] Cheng Todd PA-C Unavailable [phone] LomeliRadha APRN GAS ENGINE MECHANIC Unavailable [phone] Frankie Jelena Templetone OD Unavailable Pao Joseph RN Unavailable Unavailable Esha Grimm PA-C Unavailable [phone] Valery Veronica PA-C Unavailable [phone] Rey Tay MD Unavailable Rocky Zepeda DO Unavailable Philip Dumont MD Unavailable [phone] Encounter Details Date Type Department Care Team (Late st Contact Info) Description 03/29/2023 [facility] Medical Advice [address] [phone] [facility] [address] [place], [place] [phone] Social History Tobacco Use Types Packs/Day Years [...] week 03/10/2023 How often do you attend [facility] or taoist services? 1 to 4 times per year [...] Answer Date Recorded PHQ-2 Score 0 03/10/2023 [facility] of Occupat ional Health - [...] slept in a detention (including now)? No 03/10/2023 [place] Depression Scale Answer Date Recorded [place] Depression Score 5 01/14/2021 Last EPDS Self [...] Info) Description 11/01/2023 8:00 AM CDT Appointment [facility] [address] [address] Lauren Claudio, PABaldo [address] [place] [address] 11/03/2023 8:00 AM CDT Office Visit [address] [phone] Valery Veronica PA-C [address] [place] [address] 11/29/2023 8:00 AM CDT Office [facility] [address] [place] [phone] Esha Grimm PA-C [address] [place] [phone] 12/19/2023 11:30 AM CDT Hospital Encounter [address] [phone] Rocky Zepeda DO 500 [place] [address] 12/19/2023 11:30 AM CDT - 12/19/2023 12:00 PM CDT Surgery [address] [phone] Rocky Zepeda DO 500 [place] [address] Esophagoscopy, gastroscopy, duodenoscopy (EGD), combined 01/02/2024 8:00 AM CDT Office Visit [facility] [place] [address] [place] [phone] Lauren Claudio PA-C [address] [place] [address] Kelli Perez MD [address] [facility] 106 [place] [address] Scheduled Procedures Name Priority Associated Diagnoses Date/Ti ma ESOPHAGOGASTRODUODENOSCOPY Eosinophilic esophagitis Esophageal dysphagia 12/19/2023 11:30 AM CDT documented as of this encounter Visit Diagnoses Not on filedocumented in this encounter Additional Health Concerns Assessment Noted Time PHQ-9 Depression Total Score: 5 03/10/20 6:49 AM CDT documented as of this encounter Care Teams Pt Skilled Relationship Specialty Start Date End Date Marija Edgar APRN GAS ENGINE MECHANIC PCP - General Nurse Practitioner 04/30/20 04/14/23 Esha Grimm PA-C [address] [place] [phone] PCP - General Family Medicine 05/04/23 Marija Edgar APRN GAS ENGINE MECHANIC Assigned PCP 06/08/20 04/29/23 Keisha Dotson MD 909 [place], [place] 424985 Assigned Neuroscience Provider 06/04/20 04/01/23 [facility] [address] [place] [address] Pharmacist Pharmacist 04/17/21 Rain Galaviz PA-C [address] [place] [address] [address] [address] Physician [place] Dermatology 04/28/21 Tavia Wyatt MD [address] [place] [address] [address] [address] Dermatology 07/14/21 Erica Farrell APRN GAS ENGINE MECHANIC [address] [place] [address] Nurse Practitioner Cardiovascular Disease 09/09/21 Rich Barrett MD 516 [facility] [address]A [place] [address] Physician Ophthalmology 01/21/22 Neil Kent MD 500 [place], [place] 029355 MD Dermatology 02/24/22 Diana Desir, [facility] [address] [place], [place] 302426 Assigned [facility] Pharmacist 04/07/22 Livan Sharif MD [address] [place], [place] [address] Cardiovascular Disease 05/14/22 Catherine Cm MD [address] [place], [place] 47[address] Cardiovascular Disease 07/21/22 Valery Veronica, PA-C 909 [place], [place] [address] Physician [place] Dermatology 07/21/22 Brea Quinn APRN GAS ENGINE MECHANIC 500 [place], [place] 410445 Nurse Practitioner Dermatology 09/21/22 Brea Quinn APRN GAS ENGINE MECHANIC 6401 [facility] [place] [address] Assigned Surgical Provider 10/09/22 [place] [address] [place] [address] Assigned Musculoskeletal Provider 10/09/22 Catherine Cm MD [address] [facility] [address] [place] [address] Assigned Heart and Vascular Provider 11/13/22 05/27/23 Sydnie Martinez RN Personal Advocate & Liaison (PAL) Family Medicine 03/28/23 07/31/23 Alfonso Renteria MD 5775 [facility] 200 [place] [address] Assigned Neuroscience Provider 04/02/23 Cheng Todd PA-C [address] [place] [address] Assigned PCP 04/30/23 07/15/23 Radha Lomeli APRN GAS ENGINE MECHANIC [address] [facility] [address] [place] [address] Assigned Heart and Vascular Provider 05/28/23 Jelena David OD [address] [facility] [place] [address] Ophthalmology 06/15/23 Pao Joseph RN Personal Advocate & Liaison (PAL) Nurse 08/01/23 Esha Grimm PA-C [address] [place] [address] Assigned PCP 07/16/23 Valery Veronica PA-C 9 [place] [address] Physician [place] Dermatology 09/19/23 Rey Tay MD [address] [place] [address] MD Gastroenterology 09/20/23 Rocky Zepeda DO [address] [place] [address] 176255 Physician Gastroenterology 09/20/23 Philip Dumont MD [address] [place] [address] Physician Ophthalmology 09/22/23 documented as of this encounter
--- OUTSIDE RECORDS SUMMARY | 2023-10-28 16:41 | XMS_ITS | Encounter Summary ---
Author Name Unknown Organization [facility] Address [address] [place] [address] Care Team Providers Care Denture Finisher Name Role Phone Lita Oseguera Unavailable Unavailable Marija Edgar APRN DIRECTOR OF CASEWORK DEPARTMENT Primary Care Provider U mandaailMarija Callaway APRN, CNP Unavailable Unavail able Keisha Dotson MD Unavailable [phone] Diana Desir [facility] Unavailable [phone] Rain Galaviz PA-C Unavailable [phone] Tavia Wyatt MD Unavailable Unavailable Erica Farrell APRN DIRECTOR OF CASEWORK DEPARTMENT Unavailable Rich Barrett MD Unavailable [phone] Neil Kent MD Unavailable Diana Desir [facility] Unavailable [phone] Livan Sharif MD Unavailable Catherine Cm MD Unavailable + Valery Veronica PA-C Unavailable [phone] Brea Quinn APRN DIRECTOR OF CASEWORK DEPARTMENT Unavailable Brea Quinn APRN DIRECTOR OF CASEWORK DEPARTMENT Unavailable Jose Francisco Johnson MD Unavailable Catherine Cm MD Unavailable + Sydnie Martinez RN Unavailable Unavailable Alfonso Renteria MD Unavailable [phone] Esha Grimm PA-C Primary Care Provider Cheng Todd PA-C Unavailable Radha Lomeli APRN DIRECTOR OF CASEWORK DEPARTMENT Unavailable Jelena David OD Unavailable [phone] Pao Joseph RN Unavailable Unavailable Esha Grimm PA-C Unavailable [phone] Reason for Visit * Rehab Therapy Physical Therapy (Routine: Next available opening) - Closed Specialty Diagnoses / Procedures Referred By Contparviz t Referred To Contact Physical Therapy Diagnoses Acute left-sided low back pain with left-sided sciatica Neck pain on left side Lauren Claudio PA-C [address] [place] [address] [facility] - [place] [address] [address] Referral ID Status Reason Start Date Expiration Date Visits Re quested Visits Authorized [id number] Closed 08/25/2022 03/24/2023 18 18 Encounter Details Date Type Department Care Team (Latest Contact Info) Description 03/02/2023 3:10 PM CDT Therapy Visit [facility] [place] [address] [place] [address] Anthony Mena, PT [address] [place] [address] Neck pain (Primary Dx); Low [...] 03/10/2023 How often do you attend [facility] or mormonism services? 1 to 4 times [...] Answer Date Recorded PHQ-2 Score 0 06/20/2023 [facility] Occupat ional Health - [...] exercise at this level? 30 min 03/10/2023 Gold Bar Depression Scale Answer Date Recorded Gold Bar Depression Score 5 01/14/2021 Last EPDS Self [...] Surgery 08/16/22 Progress Note Completed Date 01/19/23 Surgical Endoscopist Surgical Endoscopist Present No PT Goal 1 Goal Identifier LTG Goal Description Pt will be able to lift an item to counter height weaighing 50 lbs with pain no greater than 2/10 for safe care of /toddler;for grocery shopping;for meal preparation;for housework such as laundry, emptying garbage, use of engineering design supervisor;for yard work such as shoveling snow;to perform [...] Therapeutic Procedures: strength, endurance, ROM, flexibillity minutes (67091) 25 Therapeutic Procedures Ther Proc 10;Ther Proc [...] Therapy: Mobilization, MFR, MLD, friction massage minutes (11964) 15 Manual Therapy 1 MFR to paraspinals with active trunk rotation Manual Therapy 1 - Details decreased pain and improved ROM Manual Therapy 2 prone throacic echo technician grade 2 and 3 Skilled Intervention slightly [...] Appointment [facility] [address] [facility] [place] [address] Lauren Claudio PA-C [address] [place] [address] 11/03/2023 8:00 AM CDT Office Visit [address] [phone] Valery Veronica PA-C [address] [place] [address] 11/29/2023 8:00 AM CDT Office Visit [facility] [address] [place] [phone] Esha Grimm PA-C [address] [place] [phone] 12/19/2023 11:30 AM CDT Hospital Encounter [address] [phone] Rocky Zepeda DO 500 [place], [place] [address]75 12/19/2023 11:30 AM CDT - 12/19/2023 12:00 PM CDT Surgery [address] [phone] Rocky Zepeda DO 500 [place], [place] 106081 Esophagoscopy, gastroscopy, duodenoscopy (EGD), combined 01/02/2024 8:00 AM CDT Office Visit [facility] [address] [place] [phone] Lauren Claudio PA-C [address] [place], [place] [phone] Kelli Perez MD [address] [place] [address] Scheduled Procedures Name Priority Associated Diagnoses Date/Ti me ESOPHAGOGASTRODUODENOSCOPY Eosinophilic esophagitis Esophageal dysphagia 12/19/2023 11:30 AM CDT documented as of this encounter Visit Diagnoses Diagnosis Neck pain- Primary Cervicalgia Low back pain, unspecified back pain laterality, unspecified chronicity, unspecified whether sciatica present Eosinophilic esophagitis Esophageal dysphagia Dysphagia, pharyngoesophageal phase documented in this encounter Additional Health Concerns Infection Onset Date Last Indicated Resolved Time Rule Out COVID-19 03/07/2023 03/07/2023 03/07/2023 1:20 PM CDT Assessment Noted Time PHQ-9 Depression Total Score: 5 10/11/19 8:58 AM CDT documented as of this encounter Care Teams Denture Finisher Relationship Specialty Start Date End Date Marija Edgar APRN DIRECTOR OF CASEWORK DEPARTMENT PCP - General Nurse Practitioner 04/30/20 04/14/23 Esha Grimm PA-C [address] [place] [address] PCP - General Family Medicine 05/04/23 Lita Oseguera Personal Advocate & Liaison (PAL) 02/28/20 03/27/23 Marija Edgar APRN DIRECTOR OF CASEWORK DEPARTMENT Assigned PCP 06/08/20 04/29/23 Keisha Dotson MD [address] [place] [address] Assigned Neuroscience Provider 06/04/20 04/01/23 Diana Desir, [facility] [address] [place] [address] Pharmacist Pharmacist 04/17/21 Rain Galaviz PA-C [address] [place] [address] [address] [place] [address] Physician Golf Course Patroller Dermatology 04/28/21 Tavia Wyatt MD [address] [place] [address] [place] [address] Dermatology 07/14/21 Erica Farrell APRN [facility] [address] [place] [address] Nurse Practitioner Cardiovascular Disease 09/09/21 Rich Barrett MD [address] [place] [address] 536325 Physician Ophthalmology 01/21/22 Neil Kent MD [address] [place] [address] Dermatology 02/24/22 Diana Desir, [facility] [address] [place] [address] Assigned MTM Pharmacist 04/07/22 Livan Sharif MD [address] [place] [address] Cardiovascular Disease 05/14/22 Catherine Cm MD [address] [id number] [place] [address] Cardiovascular Disease 07/21/22 Valery Veronica, PAUche[facility] [address] [place] [address] Physician Golf Course Patroller Dermatology 07/21/22 Brea Quinn APRN DIRECTOR OF CASEWORK DEPARTMENT 500 [place], [place] 607265 Nurse Practitioner Dermatology 09/21/22 Brea Quinn APRN DIRECTOR OF CASEWORK DEPARTMENT [address] [place] [address] Assigned Surgical Provider 10/09/22 [place] [address] [address] Assigned Musculoskeletal Provider 10/09/22 Catherine Cm MD [address] [id number] [place] [address] Assigned Heart and Vascular Provider 11/13/22 05/27/23 Sydnie Martinez RN Personal Advocate & Liaison (PAL) Family Medicine 03/28/23 07/31/23 Alfonso Renteria MD [address] [facility] 200 [place], [place] 439236 Assigned Neuroscience Provider 04/02/23 Cheng Todd PA-C [address] [place] [address] Assigned PCP 04/30/23 07/15/23 Radha Lomeli APRN DIRECTOR OF CASEWORK DEPARTMENT [address] [place] [address] Assigned Heart and Vascular Provider 05/28/23 Jelena David OD [address] [place] [address] Ophthalmology 06/15/23 Pao Joseph, RN Personal Advocate & Liaison (PAL) Nurse 08/01/23 Esha Grimm PA-C [address] [place] [address] Assigned PCP 07/16/23 documented as of this encounter
--- OUTSIDE RECORDS SUMMARY | 2023-10-28 16:41 | XMS_ITS | Encounter Summary ---
Author Name Unknown Organization [facility] Address [address] [place] [address] Care Team Providers Care Reservations And Ticketing Agent Name Role Phone AliyahcarolynMarija APRN CONVICT GUARD Unavailable Unavail able Diana Desir [facility] Unavailable [phone] Rain Galaviz PA-C Unavailable [phone] Tavia Wyatt MD Unavailable Unavailable Erica Farrell APRN CONVICT GUARD Unavailable Rich Barrett MD Unavailable Neil Kent MD Unavailable Diana Desir [facility] Unavailable Livan Sharif MD Unavailable Catherine Cm MD Unavailable + Valery Veronica PA-C Unavailable [phone] Brea Quinn SOFTWARE QUALITY ENGINEER CONVICT GUARD Unavailable Brea Quinn SOFTWARE QUALITY ENGINEER CONVICT GUARD Unavailable [phone] Jose Francisco Johnson MD Unavailable Catherine Cm MD Unavailable + Sydnie Martinez RN Unavailable Unavailable Alfonso Renteria MD Unavailable [phone] Esha GrimmC Primary Care Provider [phone] Cheng Todd PA-C Unavailable Armani Radha Stovall APRN CONVICT GUARD Unavailable Jelena David OD Unavailable Pao Joseph RN Unavailable Unavailable Esha Grimm PA-C Unavailable [phone] Valery VeronicaC Unavailable Rey [place] MD Unavailable Rocky Zepeda DO Unavailable Philip Dumont MD Unavailable [phone] Reason for Visit * Reason Onset Date Comments Erroneous encounter-disregard 04/15/2023 Encounter Details Date Type Department Care Team (Late st Contact Info) Description 04/15/2023 Telephone M Physicians [facility] Epilepsy Care [address] [facility], [address] [place] [address] Alfonso Renteria MD [address] [facility] [address] [place] [address] Erroneous encounter-disregard Social History Tobacco [...] 03/10/2023 How often do you attend [facility] or shinto services? 1 to 4 times [...] Answer Date Recorded PHQ-2 Score 0 03/10/2023 [facility] - Occupational Stress Questionnaire Answer [...] exercise at this level? 30 min 03/10/2023 Harper Depression Scale Answer Date Recorded Harper Depression Score 5 01/14/2021 Last EPDS Self [...] Info) Description 11/01/2023 8:00 AM CDT Appointment [facility] [address] [place] [phone] Lauren Claudio, PAUcheC [address] [place] [address] 11/03/2023 8:00 AM CDT Office Visit [address] [place] [address] Valery Veronica, PAUche[facility] [address] [place] [address] 11/29/2023 8:00 AM CDT Office Visit [address] [phone] Esha Grimm PA-C [address] [place] [address] 12/19/2023 11:30 AM CDT Hospital Encounter [address] [phone] Rocky Zepeda DO 500 [place], [place] [address]84[address] 12/19/2023 11:30 AM CDT - 12/19/2023 12:00 PM CDT Surgery [address] [phone] Rocky Zepeda DO 500 [place], [place] [phone] Esophagoscopy, gastroscopy, duodenoscopy (EGD), combined 01/02/2024 8:00 AM CDT Office Visit [address] [address] Lauren Claudio PA-C [address] [place], [place] [phone] Kelli Perez MD [address] [phone] Scheduled Procedures Name Priority Associated Diagnoses Date/Ti wa ESOPHAGOGASTRODUODENOSCOPY Eosinophilic esophagitis Esophageal dysphagia 12/19/2023 11:30 AM CDT documented as of this encounter Visit Diagnoses Not on filedocumented in this encounter Additional Health Concerns Assessment Noted Time PHQ-9 Depression Total Score: 5 03/10/20 23 6:49 AM CDT documented as of this encounter Care Teams Reservations And Ticketing Agent Relationship Specialty Start Date End Date Esha Grimm PA-C [address] [place] [address] PCP - General Family Medicine 05/04/23 Marija Edgar APRN CONVICT GUARD Assigned PCP 06/08/20 04/29/23 Diana Desir, [facility] [address] [place] [address] Pharmacist Pharmacist 04/17/21 Rain Galaviz PA-C [address] [place] [address] [address] [place] [address] Physician Metal Checker Dermatology 04/28/21 Tavia Wyatt MD [address] [place] [address] [address] [place] [address] Dermatology 07/14/21 Erica Farrell APRN CONVICT GUARD [address] [facility] [address] [place] [address] Nurse Practitioner Cardiovascular Disease 09/09/21 Rich Barrett MD [address] 511675 Physician Ophthalmology 01/21/22 Neil Kent MD 500 [place], [place] [phone] Dermatology 02/24/22 Diana Desir, [facility] 3033 [place], [place] 976266 Assigned MTM Pharmacist 04/07/22 Livan Sharif MD [address] [place] 583135 Cardiovascular Disease 05/14/22 Catherine Cm MD [address] [place] 762355 Cardiovascular Disease 07/21/22 Valery Veronica, [facility] [address] [place] [address] 801985 Physician Metal Checker Dermatology 07/21/22 Brea Quinn APRN CONVICT GUARD [address] [place] [address] 644215 Nurse Practitioner Dermatology 09/21/22 Brea Quinn APRN CONVICT GUARD 6401 [place], [place] 712402 Assigned Surgical Provider 10/09/22 [place] [address] [place], [place] 564607 Assigned Musculoskeletal Provider 10/09/22 Catherine Cm MD [address] [place] [address] Assigned Heart and Vascular Provider 11/13/22 05/27/23 Sydnie Martinez RN Personal Advocate & Liaison (PAL) Family Medicine 03/28/23 07/31/23 Alfonso Renteria MD [address] [facility] [address] [place] [address] Assigned Neuroscience Provider 04/02/23 Cheng Todd PA-C [address] [place], [place] [phone] Assigned PCP 04/30/23 07/15/23 Radha Lomeli APRN CONVICT GUARD [address] [facility] [address] [place] [address] Assigned Heart and Vascular Provider 05/28/23 Jelena David OD [address] [facility] [place] [address] Ophthalmology 06/15/23 Pao Joseph, [facility] Personal Advocate & Liaison (PAL) Nurse 08/01/23 Esha Grimm PA-C [address] [place] [address] Assigned PCP 07/16/23 Valery Veronica PA-C [address] [place] [address] 451485 Physician Metal Checker Dermatology 09/19/23 Rey Tay MD [address] [place] [address] Gastroenterology 09/20/23 Rocky Zepeda DO [address] [place] [address] [place] [address] Physician Gastroenterology 09/20/23 Philip Dumont MD [address] [place] [address] Physician Ophthalmology 09/22/23 documented as of this encounter
--- OUTSIDE RECORDS SUMMARY | 2023-10-28 16:41 | XMS_ITS | Encounter Summary ---
Author Name Unknown Organization [facility] Address [address] [place] [address] Care Team Providers Care Milk Pasteurizer Name Role Phone Marija Edgar APRN EMERY WHEEL MOLDER Primary Care Provider Marija Emery APRN, CNP Unavailable Unavail able Diana Desir [facility] Unavailable [phone] Rain Galaviz PA-C Unavailable [phone] Tavia Wyatt MD Unavailable Unavailable Erica Farrell APRN EMERY WHEEL MOLDER Unavailable Rich Barrett MD Unavailable [phone] Neil Kent MD Unavailable Diana Desir [facility] Unavailable [phone] Livan Sharif MD Unavailable Catherine Cm MD Unavailable + Valery Veronica PA-C Unavailable [phone] Brea Quinn APRN EMERY WHEEL MOLDER Unavailable [phone] Brea Quinn APRN EMERY WHEEL MOLDER Unavailable [phone] Jose Francisco Johnson MD Unavailable Catherine Cm MD Unavailable + Sydnie Martinez RN Unavailable Unavailable Alfonso Renteria MD Unavailable [phone] Esha GrimmC Primary Care Provider [phone] Cheng ToddC Unavailable Radha Lmoeli APRN EMERY WHEEL MOLDER Unavailable [phone] Jelena David OD Unavailable Pao Joseph RN Unavailable Unavailable Esha Grimm PA-C Unavailable [phone] Valery VeronicaC Unavailable Rey Tay MD Unavailable Rocky Zepeda DO Unavailable Philip Dumont MD Unavailable [phone] Encounter Details Date Type Department Care Team (Late st Contact Info) Description 04/12/2023 [facility] Medical Advice [facility] [address] [facility] [address] [place] [address] Livan Sharif MD [address] [facility] [address] [place] [address] Social History Tobacco Use Types [...] How often do you attend [facility] or oriental orthodox services? 1 to 4 times per year 03/10/2023 Do you belong to any clubs o r organizations such as bahai groups, unions, fraNormOxys or athletic groups, or school groups? No [...] Answer Date Recorded PHQ-2 Score 0 03/10/2023 [facility]at ional Health [...] slept in a correction (including now)? No 03/10/2023 Jackson Depression Scale Answer Date Recorded Jackson Depression Score 5 01/14/2021 Last EPDS Self [...] AM CDT My chart message from patient: Renaeharman, I am just reaching out because I [...] Thank you. Kim Swann, We are in [place], but asked a tech here to check the photo. He said the spot you chose is OK but he thinks we should have the [employer] techs check in with you as you may need to have some extra prep gelif you have have issues with the pads. We are reaching out to that [employer] team to let them know you are having some issues. Team [address] [place] [address] Sharif [phone] documented in this encounter Plan of Treatment Upcoming Encounters Date Type Department Care Team (Late st Contact Info) Description 11/01/2023 8:00 AM CDT Appointment [facility] [address] [place] [address] Lauren Claudio PA-C [address] [place] [address] [phone] 11/03/2023 8:00 AM CDT Office Visit [address] [phone] Valery Veronica PA-C 909 [place] [address] 11/29/2023 8:00 AM CDT Office Visit [facility] [address] [place] [phone] Esha Grimm PA-C [address] [place] [phone] 12/19/2023 11:30 AM CDT Hospital Encounter [address] [phone] Rocky Zepeda DO 500 [place] [address] 12/19/2023 11:30 AM CDT - 12/19/2023 12:00 PM CDT Surgery [address] [phone] Rocky Zepeda DO 500 [place], [place] 472245 Esophagoscopy, gastroscopy, duodenoscopy (EGD), combined 01/02/2024 8:00 AM CDT Office Visit [address] [phone] Lauren Claudio PA-C [address] [place], [place] [phone] Kelli Perez MD [address] [place] [address] 934794 Scheduled Procedures Name Priority Associated Diagnoses Date/Ti id ESOPHAGOGASTRODUODENOSCOPY Eosinophilic esophagitis Esophageal dysphagia 12/19/2023 11:30 AM CDT documented as of this encounter Visit Diagnoses Not on filedocumented in this encounter Additional Health Concerns Assessment Noted Time PHQ-9 Depression Total Score: 5 03/10/20 23 6:49 AM CDT documented as of this encounter Care Teams Milk Pasteurizer Relationship Specialty Start Date End Date Marija Edgar APRN EMERY WHEEL MOLDER PCP - General Nurse Practitioner 04/30/20 04/14/23 Esha Grimm PA-C [address] [place] [address] PCP - General Family Medicine 05/04/23 Marija Edgar APRN EMERY WHEEL MOLDER Assigned PCP 06/08/20 04/29/23 Diana Desir, [facility] [address] [place] [address] 214186 Pharmacist Pharmacist 04/17/21 Rain Galaviz PA-C [address] [place] [address] [address] [place] [address] Physician Buffing Wheel Presser Dermatology 04/28/21 Tavia Wyatt MD [address] [place] [address] [address] [facility] [address] Dermatology 07/14/21 Erica Farrell APRN EMERY WHEEL MOLDER [address] [facility] [address] [place] [address] Nurse Practitioner Cardiovascular Disease 09/09/21 Rich Barrett MD [address] 441805 Physician Ophthalmology 01/21/22 Neil Kent MD [address] [place] [address] 775245 Dermatology 02/24/22 Diana Desir, [facility] [place] [address] Assigned MTM Pharmacist 04/07/22 Livan Sharif MD [address] [place] [address] Cardiovascular Disease 05/14/22 Catherine Cm MD [address] [place] [address] Cardiovascular Disease 07/21/22 Valery Veronica, PAUcheC [address] [place] [address] Physician Buffing Wheel Presser Dermatology 07/21/22 Brea Quinn APRN EMERY WHEEL MOLDER [address] [place] [address] Nurse Practitioner Dermatology 09/21/22 Brea Quinn APRN EMERY WHEEL MOLDER [address] [place] [address] Assigned Surgical Provider 10/09/22 [place] [address] [place] [address] [address] Assigned Musculoskeletal Provider 10/09/22 Catherine Cm MD [address] [place] [address] [place] [address] Assigned Heart and Vascular Provider 11/13/22 05/27/23 JuanSydnie malik RN Personal Advocate & Liaison (PAL) Family Medicine 03/28/23 07/31/23 Alfonso Renteria MD [address] [facility] [address] [place] [address] Assigned Neuroscience Provider 04/02/23 Cheng Todd PA-C [address] [place] [address] Assigned PCP 04/30/23 07/15/23 Radha Lomeli, ARLENE EMERY WHEEL MOLDER [address] [place], [place] 797165 Assigned Heart and Vascular Provider 05/28/23 Jelena David OD [address] [facility] [place] [address] Ophthalmology 06/15/23 Pao Joseph, V[facility] Personal Advocate & Liaison (PAL) Nurse 08/01/23 Esha Grimm PA-C [address] [place] [address] Assigned PCP 07/16/23 Valery Veronica PA-C [address] [place] [address] 819035 Physician Buffing Wheel Presser Dermatology 09/19/23 Rey Tay MD [address] [place] [address] 084145 Gastroenterology 09/20/23 Rocky Zepeda DO [address] [place] [address] [phone] Physician Gastroenterology 09/20/23 Philip Dumont MD [address] [place] [address] Physician Ophthalmology 09/22/23 documented as of this encounter
--- OUTSIDE RECORDS SUMMARY | 2023-10-28 16:41 | XMS_ITS | Encounter Summary ---
Author Name Unknown Organization [place] Address [address] [place] [address] Care Team Providers Care Cotton Farmer Name Role Phone Lita Oseguera Unavailable Unavailable Marija Edgar APRN CONDITIONING YARD SUPERVISOR Primary Care Provider U mandaailMarija Callaway APRN, CNP Unavailable Unavail able Keisha Dotson MD Unavailable [phone] [facility] Unavailable [phone] Rain Galaviz PA-C Unavailable [phone] Tavia Wyatt MD Unavailable Unavailable Erica Farrell APRN CONDITIONING YARD SUPERVISOR Unavailable Rich Barrett MD Unavailable [phone] Neil Kent MD Unavailable Diana Desir [facility] Unavailable [phone] Livan Sharif MD Unavailable Catherine Cm MD Unavailable + Valery Veroncia PA-C Unavailable [phone] Brea Quinn APRN CONDITIONING YARD SUPERVISOR Unavailable Brea Quinn APRN CONDITIONING YARD SUPERVISOR Unavailable Jose Francisco Johnson MD Unavailable Catherine Cm MD Unavailable + Sydnie Martinez RN Unavailable Unavailable Alfonso Renteria MD Unavailable [phone] Esha GrimmC Primary Care Provider Cheng ToddC Unavailable Armani Radha Stovall APRN CONDITIONING YARD SUPERVISOR Unavailable Jelena David OD Unavailable Pao Joseph RN Unavailable Unavailable Esha Grimm PA-C Unavailable [phone] Valery VeronicaC Unavailable Rey Tay MD Unavailable Rocky Zepeda DO Unavailable Philip Dumont MD Unavailable [phone] Encounter Details Date Type Department Care Team (Late st Contact Info) Description 01/10/2023 [facility] [address] [place] [address] Lauren Claudio PA-C [address] [place] [address] Social History Tobacco Use Types Packs/Day [...] How often do you attend hindu or advent serv ices? Never 09/22/2021 Do you belong [...] Answer Date Recorded PHQ-2 Score 1 10/11/2022 [facility] of Occupat ional Health - Occupational Stress [...] in a prison (including now)? No 09/22/2021 [place]re[place] Depression Scale Answer Date Recorded [place] Depression Score 5 01/14/2021 Last EPDS Self [...] - 02/03/2023 11:52 AM CDT Incoming call Insurance Actuary: Rosalva [place] [facility] referral following up on [facility] information that is needed to be faxed at [phone] Erica David MA documented in this encounter Plan of Treatment Upcoming Encounters Date Type Department Care Team (Late st Contact Info) Description 11/01/2023 8:00 AM CDT Appointment [facility] [address] [facility] [place] [address] Lauren Claudio PA-C [address] [place], [place] [phone] 11/03/2023 8:00 AM CDT Office Visit [address] [phone] Valery Veronica PA-C [address] [place] [address]275 11/29/2023 8:00 AM CDT Office Visit [facility] [address] [place] [phone] Esha Grimm PA-C [address] [place] [phone] 12/19/2023 11:30 AM CDT Hospital Encounter [address] 5th [place] [address] Rocky Zepeda, DO 500 [place], [place] 837935 12/19/2023 11:30 AM CDT - 12/19/2023 12:00 PM CDT Surgery [facility] 9[address] [facility] [address] 5th [place] [phone] Rocky Zepeda DO 500 [place] [address] Esophagoscopy, gastroscopy, duodenoscopy (EGD), combined 01/02/2024 8:00 AM CDT Office Visit [facility] [address] [place] [phone] Lauren Claudio PA-C [address] [place], [place] [phone] Kelli Perez MD [address] [id number] Scheduled Procedures Name Priority Associated Diagnoses Date/Ti [...] as of this encounter Care Teams Cotton Farmer Relationship Specialty Start Date End Date Marija Edgar APRN CONDITIONING YARD SUPERVISOR PCP - General Nurse Practitioner 04/30/20 04/14/23 Esha Grimm PA-C [address] [place] [address] PCP - General Family Medicine 05/04/23 Lita Oseguera Personal Advocate & Liaison (PAL) 02/28/20 03/27/23 Marija Edgar APRN CONDITIONING YARD SUPERVISOR Assigned PCP 06/08/20 04/29/23 Keisha Dotson MD 909 [place] [address] Assigned Neuroscience Provider 06/04/20 04/01/23 [facility] [address] [place] [address] Pharmacist Pharmacist 04/17/21 Rain Galaivz PA-C [address] [place] [address] [address] [place] [address] Physician Phonograph Mechanic Dermatology 04/28/21 Tavia Wyatt MD [address] [place] [address] [address] [place] [address] Dermatology 07/14/21 Erica Farrell APRN CONDITIONING YARD SUPERVISOR [address] [place] [address] Nurse Practitioner Cardiovascular Disease 09/09/21 Rich Barrett MD [address] 502885 Physician Ophthalmology 01/21/22 Neil Kent MD 500 [place], [place] 723715 Dermatology 02/24/22 Diana Desir, [facility] 3033 [place] [address] Assigned MTM Pharmacist 04/07/22 Livan Sharif MD [address], [address] [place] 574535 Cardiovascular Disease 05/14/22 Catherine Cm MD [address] [place] 576515 Cardiovascular Disease 07/21/22 Valery Veronica, PAUcheC [address] [place] [address] 807265 Physician Phonograph Mechanic Dermatology 07/21/22 Brea Quinn APRN CONDITIONING YARD SUPERVISOR [address] [place] [address] 699635 Nurse Practitioner Dermatology 09/21/22 Brea Quinn APRN CONDITIONING YARD SUPERVISOR 6401 [place], [place] 627952 Assigned Surgical Provider 10/09/22 [place] [address] [place] [address] [place] [address] Assigned Musculoskeletal Provider 10/09/22 Catherine Cm MD [address] [place] [address] Assigned Heart and Vascular Provider 11/13/22 05/27/23 Sydnie Martinez RN Personal Advocate & Liaison (PAL) Family Medicine 03/28/23 07/31/23 Alfonso Renteria MD [address] [facility] [address] 200 [place] [address] Assigned Neuroscience Provider 04/02/23 Cheng Todd PA-C [address] [place], [place] 63339124 Assigned PCP 04/30/23 07/15/23 Radha Lomeli APRN CONDITIONING YARD SUPERVISOR 6405 [facility] [address] [place] [address] Assigned Heart and Vascular Provider 05/28/23 Jelena David OD [address] [facility] [address] Ophthalmology 06/15/23 Pao Joseph, VJ Personal Advocate & Liaison (PAL) Nurse 08/01/23 Esha Grimm PA-C [address] [place] [address] Assigned PCP 07/16/23 Valery Veronica PA-C [address] [place] [address] 538945 Physician Phonograph Mechanic Dermatology 09/19/23 Rey Tay MD [address] [place] [address] 643425 Gastroenterology 09/20/23 Rocky Zepeda DO [address] [place] [address] Physician Gastroenterology 09/20/23 Philip Dumont MD 6 [place] [address] Physician Ophthalmology 09/22/23 documented as of this encounter
--- OUTSIDE RECORDS SUMMARY | 2023-10-28 16:42 | XMS_ITS | Encounter Summary ---
Author Name Unknown Organization [place] Address [address] [place] [address] Care Team Providers Care Soil Specialist Name Role Phone OumarAlee neriyn Unavailable Unavailable Marija Edgar APRN PEARL DIVER Primary Care Provider U mandaailMarija Callaway APRN PEARL DIVER Unavailable Unavail able Keisha Dotson MD Unavailable [phone] Diana Desir [facility] Unavailable Rain Galaviz PA-C Unavailable Tavia Wyatt MD Unavailable Unavailable Erica Farrell APRN PEARL DIVER Unavailable Rich Barrett MD Unavailable [phone] Neil [place] MD Unavailable Diana Desir [facility] Unavailable [phone] Jelena David OD Unavailable Livan Sharif MD Unavailable Catherine Cm MD Unavailable + Valery Veronica PA-C Unavailable [phone] Catherine Cm MD Unavailable + Johnny Murillo MD Unavailable [phone] Brea Quinn APRN PEARL DIVER Unavailable Brea Quinn APRN PEARL DIVER Unavailable Jose Francisco Johnson MD Unavailable Livan Sharif MD Unavailable Catherine Cm MD Unavailable + Sydnie [place] RN Unavailable Unavailable Alfonso Renteria MD Unavailable [phone] Esha Grimm PA-C Primary Care Provider Cheng Todd PA-C Unavailable [phone] PEARL DIVER Unavailable Frankie Jelena Garcia OD Unavailable Pao Joseph RN Unavailable Unavailable Esha Grimm PA-C Unavailable [phone] Valery Veronica PA-C Unavailable Rey Tay MD Unavailable Rocky Zepeda DO Unavailable Philip Dumont MD Unavailable Reason for Visit * Reason Onset Date Comments Call Back 09/21/2022 Change of provid er request Encounter Details Date Type Department Care Team (Late st Contact Info) Description 09/21/2022 Telephone [facility] Epilepsy [facility] [address], [address] [place] [address] Keisha Dotson MD 9 [place] [address] Call Back (Change of provider [...] How often do you attend tenriism or sabianist serv ices? Never 09/22/2021 Do you belong [...] Answer Date Recorded PHQ-2 Score 2 08/27/2022 [facility] of Occupat ional Health - Occupational [...] in a halfway (including now)? No 09/22/2021 [place] Depression Scale Answer Date Recorded [place] Depression Score 5 01/14/2021 Last EPDS Self [...] Aleyda Guan - 09/21/2022 10:47 AM CDT [facility] Phone Message May a detailed message be left on voicemail: yes Reason for Call: Other: Change of provider request, Pt would like to be seen with another provider. Please call Pt back at [phone] to scheduled or advise. Action Taken: Message routed to: [facility]SD Neurology Travel Screening: Not Applicable documented in this encounter Plan of Treatment Upcoming Encounters Date Type Department Care Team (Late st Contact Info) Description 11/01/2023 8:00 AM CDT Appointment [facility] [address] [facility] [place] [address] Lauren Claudio PA-C [address] [place], [place] [phone] 11/03/2023 8:00 AM CDT Office Visit [address] [phone] Valery Veronica PA-C [address] [place] [address] 11/29/2023 8:00 AM CDT Office Visit [facility] [address] [place] [phone] Esha Grimm PA-C [address] [place] [phone] 12/19/2023 11:30 AM CDT Hospital Encounter [address] 5th [place] [phone] Rocky Zepeda, DO 500 [place] [address] 12/19/2023 11:30 AM CDT - 12/19/2023 12:00 PM CDT Surgery [facility] 9[address] [facility] [address] 5th [place] [address] Rocky Zepeda DO 500 [place] [address] Esophagoscopy, gastroscopy, duodenoscopy (EGD), combined 01/02/2024 8:00 AM CDT Office Visit [facility] [address] [place] [phone] Lauren Claudio PA-C [address] [place], [place] [phone] Kelli Perez MD [address] [facility] 106 [place], [place] 645374 Scheduled Procedures Name Priority Associated Diagnoses Date/Ti [...] Time PHQ-9 Depression Total Score: 5 08/27/19 23 1:14 PM CHIP TUNER documented as of this encounter Care Teams Soil Specialist Relationship Specialty Start Date End Date Marija Edgar APRN PEARL DIVER PCP - General Nurse Practitioner 04/30/20 04/14/23 Esha Grimm PA-C [address] [place] [address] PCP - General Family Medicine 05/04/23 Lita Oseguera Personal Advocate & Liaison (PAL) 02/28/20 03/27/23 Marija Edgar APRN PEARL DIVER Assigned PCP 06/08/20 04/29/23 Keisha Dotson MD [address] [place] [address] 639415 Assigned Neuroscience Provider 06/04/20 04/01/23 Diana Desir, [facility] 3033 [place], [place] 989966 Pharmacist Pharmacist 04/17/21 Rain Galaviz PA-C [address] [place] [address] [address] [place] [address] Physician Nurse Navigator Dermatology 04/28/21 Tavia Wyatt MD [address] [place] [address] [address] [place] [address] Dermatology 07/14/21 Erica Farrell APRN PEARL DIVER 6405 [facility] [address] [place], [place] 112695 Nurse Practitioner Cardiovascular Disease 09/09/21 Rich Barrett MD [address] [phone] Physician Ophthalmology 01/21/22 Neil [place] MD [address] [place] [address] Dermatology 02/24/22 Diana Desir, [facility] 3033 [place] [address] Assigned MTM Pharmacist 04/07/22 [place] [address] [place] [address] [place] [address] Assigned Surgical Provider 05/08/22 10/08/22 Livan Sharif MD [address], [address] [address] Cardiovascular Disease 05/14/22 Catherine Cm MD [address] [address] Cardiovascular Disease 07/21/22 Valery Veronica, PA-C [address] [place] [address] Physician Nurse Navigator Dermatology 07/21/22 Catherine Cm MD [address] [address] Assigned Heart and Vascular Provider 07/24/22 11/05/22 Johnny Murillo MD [facility] [address] [address] Assigned Musculoskeletal Provider 08/14/22 10/08/22 Brea Quinn APRN PEARL DIVER [address] [place] [address] [place] [address] Nurse Practitioner Dermatology 09/21/22 Brea Quinn APRN PEARL DIVER 6401 [facility] [place] [address] Assigned Surgical Provider 10/09/22 [place] [address] [facility] 300 [place] [address] Assigned Musculoskeletal Provider 10/09/22 Livan Sharif MD [address] [facility] W[address] [place] 550145 Assigned Heart and Vascular Provider 11/06/22 11/12/22 Catherine Cm MD [address] [facility] [address] [place] [address] Assigned Heart and Vascular Provider 11/13/22 05/27/23 Sydnie Martinez RN Personal Advocate & Liaison (PAL) Family Medicine 03/28/23 07/31/23 Alfonso Renteria MD 5775 [facility] 200 [place] [address] Assigned Neuroscience Provider 04/02/23 Cheng Todd PA-C [address] [place] [address] Assigned PCP 04/30/23 07/15/23 Radha Lomeli APRN PEARL DIVER [address] [place] 357965 Assigned Heart and Vascular Provider 05/28/23 Jelena David OD [address] [facility] [place] [address] MD Ophthalmology 06/15/23 Pao Joseph, RN Personal Advocate & Liaison (PAL) Nurse 08/01/23 Esha Grimm PA-C [address] [place] [address] Assigned PCP 07/16/23 Valery Veronica PA-C 9 [place] [address] Physician Nurse Navigator Dermatology 09/19/23 Rey Tay MD [address] [place] [address] MD Gastroenterology 09/20/23 Rocky Zepeda DO [address] [place] [address] 109345 Physician Gastroenterology 09/20/23 Philip Dumont MD [address] [place] [address] 571295 Physician Ophthalmology 09/22/23 documented as of this encounter
--- OUTSIDE RECORDS SUMMARY | 2023-10-28 16:42 | XMS_ITS | Encounter Summary ---
Author Name Unknown Organization [place] Address [address] [place] [address] Care Team Providers Care Metropolitan Editor Name Role Phone Lita Oseguera Unavailable Unavailable Marija Edgar APRN COMMUNITY CENTER COORDINATOR Primary Care Provider U mandaailMarija Callaway APRN COMMUNITY CENTER COORDINATOR Unavailable Unavail able Keisha Dotson MD Unavailable [phone] Diana Desir [facility] Unavailable Rain Galaviz-C Unavailable Tavia Wyatt MD Unavailable Unavailable Erica Farrell APRN COMMUNITY CENTER COORDINATOR Unavailable Rich Barrett MD Unavailable [phone] Neil [place] MD Unavailable Roney Story DPM Unavailable [phone] Diana Desir [facility] Unavailable [phone] Jelena David OD Unavailable Livan Sharif MD Unavailable Livan Sharif MD Unavailable Catherine Cm MD Unavailable + Valery Veronica PA-C Unavailable [phone] Catherine Cm MD Unavailable + Johnny Murillo MD Unavailable [phone] Brea Quinn [employer] TRIMMER COMMUNITY CENTER COORDINATOR Unavailable [phone] Brea Quinn [facility] [employer] [facility] COMMUNITY CENTER COORDINATOR Unavailable Jose Francisco Johnson MD Unavailable Livan Sharif MD Unavailable + Catherine Cm MD Unavailable + Sydnie [place] RN Unavailable Unavailable Alfonso Renteria MD Unavailable [phone] Esha Grimm PA-C Primary Care Provider Cheng Todd PA-C Unavailable [phone] Radha Lomeli [facility] [employer] [facility] COMMUNITY CENTER COORDINATOR Unavailable [phone] Jelena David OD Unavailable Pao Joseph RN Unavailable Unavailable Esha Grimm PA-C Unavailable [phone] Valery Veronica PA-C Unavailable [phone] Rey Tay MD Unavailable Rocky Zepeda DO Unavailable Philip Dumont MD Unavailable [phone] Encounter Details Date Type Department Care Team (Late st Contact Info) Description 07/20/2022 [facility] Heart [address] [place] [address] Pao Donahue, VJ Social History [...] How often do you attend cheondoism or buddhism serv ices? Never 09/22/2021 Do you belong [...] points; Administer PHQ-9 if positive 1 05/13/2022 [facility] of Occupat ional Health - [...] or slept in a longterm (including now)? No 09/22/2021 [place] Depression Scale Answer Date Recorded [place] Depression Score 5 01/14/2021 Last EPDS Self [...] Coronavirus/COVID-19? No / Unsure 07/23/2022 6:45 AM BAR TENDER documented as of this encounter Plan of Treatment Upcoming Encounters Date Type Department Care Team (Late st Contact Info) Description 11/01/2023 8:00 AM CDT Appointment [facility] [address] [place] [address] Lauren Claudio PA-C [address] [place], [place] [phone] 11/03/2023 8:00 AM CDT Office Visit [address] [phone] Valery Veronica PA-C 909 [place] [address] 11/29/2023 8:00 AM CDT Office Visit [facility] [address] [place] [phone] Esha Grimm PA-C [address] [place] [phone] 12/19/2023 11:30 AM CDT Hospital Encounter [address] [phone] Rocky Zepeda DO 500 [place] [address] 12/19/2023 11:30 AM CDT - 12/19/2023 12:00 PM CDT Surgery [address] [phone] Rocky Zepeda DO 500 [place] [address] Esophagoscopy, gastroscopy, duodenoscopy (EGD), combined 01/02/2024 8:00 AM CDT Office Visit [facility] [address] [place] [phone] Lauren Claudio PA-C [address] [place], [place] [phone] Kelli Perez MD [address] [place] [address] Scheduled Procedures Name Priority Associated Diagnoses Date/Ti tn ESOPHAGOGASTRODUODENOSCOPY Eosinophilic esophagitis Esophageal dysphagia 12/19/2023 11:30 [...] documented as of this encounter Care Teams Metropolitan Editor Relationship Specialty Start Date End Date Marija Edgar APRN COMMUNITY CENTER COORDINATOR PCP - General Nurse Practitioner 04/30/20 04/14/23 Esha Grimm PA-C [address] [place] [phone] PCP - General Family Medicine 05/04/23 Lita Oseguera Personal Advocate & Liaison (PAL) 02/28/20 03/27/23 Marija Edgar APRN COMMUNITY CENTER COORDINATOR Assigned PCP 06/08/20 04/29/23 Keisha Dotson MD [address] [place] [address] 302485 Assigned Neuroscience Provider 06/04/20 04/01/23 Diana Desir, [facility] [address] [facility] [address] Pharmacist Pharmacist 04/17/21 Rain Galaviz PA-C [address] [place] [address] [address] [place] [address] Physician Surg Rn Dermatology 04/28/21 Tavia Wyatt MD [address] [place] [address] [address] [place] [address] Dermatology 07/14/21 Erica Farrell APRN COMMUNITY CENTER COORDINATOR [address] [place] [address] Nurse Practitioner Cardiovascular Disease 09/09/21 Rich Barrett MD [address] [facility] [address]A [place], [place] 512385 Physician Ophthalmology 01/21/22 Neil [place] MD 500 [place], [place] 375545 Dermatology 02/24/22 Roney Story DPM [address] [facility] [address] [place] [address] Assigned Musculoskeletal Provider 03/20/22 08/13/22 Diana Desir, [facility] [address] [place] [address] Assigned MTM Pharmacist 04/07/22 Jelena David OD [address] [facility] [place] [address] Assigned Surgical Provider 05/08/22 10/08/22 Livan Sharif MD [address], [facility] [address] [place], [place] 029915 Cardiovascular Disease 05/14/22 Livan Sharif MD [address], [facility] W[address] [place], [place] 183185 Assigned Heart and Vascular Provider 06/12/22 07/23/22 Catherine Cm MD [address] [facility] W[address] [place], [place] 512915 Cardiovascular Disease 07/21/22 Valery Veronica, PAUcheC [address] [place] [address] 989605 Physician Surg Rn Dermatology 07/21/22 Catherine Cm MD [address] [facility] [address] [place] 846575 Assigned Heart and Vascular Provider 07/24/22 11/05/22 Johnny Murillo MD [facility] [address] 205574 Assigned Musculoskeletal Provider 08/14/22 10/08/22 Brea Quinn APRN COMMUNITY CENTER COORDINATOR [address] [place] [address] 774735 Nurse Practitioner Dermatology 09/21/22 Brea Quinn, CLEANER AND TRIMMER COMMUNITY CENTER COORDINATOR 6401 [facility] [place] [facility] [place] [address] Assigned Surgical Provider 10/09/22 [place] [address] [facility] 300 [place] [address] Assigned Musculoskeletal Provider 10/09/22 Livan Sharif MD [address] [facility] [address] [place] [address] Assigned Heart and Vascular Provider 11/06/22 11/12/22 Catherine Cm MD [address] [address] [place] [address] Assigned Heart and Vascular Provider 11/13/22 05/27/23 JuanSydnie malik, RN Personal Advocate & Liaison (PAL) Family Medicine 03/28/23 07/31/23 Alfonso Renteria MD 5775 [facility] 200 [place] [address] Assigned Neuroscience Provider 04/02/23 Cheng Todd PA-C [address] [place] [address] Assigned PCP 04/30/23 07/15/23 Radha Lomeli APRN COMMUNITY CENTER COORDINATOR [address] [place] [address] Assigned Heart and Vascular Provider 05/28/23 Jelena David SONJA [address] [facility] [place] [address] Ophthalmology 06/15/23 Pao Joseph, RN Personal Advocate & Liaison (PAL) Nurse 08/01/23 Esha Grimm PAUcheC [address] [place] [address] Assigned PCP 07/16/23 Valery Veronica PA-C 909 [place] [address] Physician Surg Rn Dermatology 09/19/23 Rey Tay MD [address] [place] [address] 653565 MD Gastroenterology 09/20/23 Rocky Zepeda DO [address] [place] [address] 754745 Physician Gastroenterology 09/20/23 Philip Dumont MD [address] [place] [address] 820785 Physician Ophthalmology 09/22/23 documented as of this encounter
--- OUTSIDE RECORDS SUMMARY | 2023-10-28 16:42 | XMS_ITS | Encounter Summary ---
Author Name Unknown Organization [facility] Address [address] [place] [address] 19144 Care Team Providers Care Lead Android Developer Name Role Phone OumarAlee layyn Unavailable Unavailable Marija Edgar APRN PLANT PACKER Primary Care Provider U mandaailMarija Callaway APRN PLANT PACKER Unavailable Unavail able Keisha Dotson MD Unavailable [phone] Diana Desir [facility] Unavailable [phone] Rain Galaviz PA-C Unavailable [phone] Tavia Wyatt MD Unavailable Unavailable Erica Farrell APRN PLANT PACKER Unavailable Rich Barrett MD Unavailable [phone] Neil Kent MD Unavailable Diana Desir [facility] Unavailable [phone] Livan Sharif MD Unavailable Catherine Cm MD Unavailable + Valery Veronica PA-C Unavailable [phone] Catherine Cm MD Unavailable + Brea Quinn APRN PLANT PACKER Unavailable [phone] Brea Quinn APRN PLANT PACKER Unavailable [phone] Jose Francisco Johnson MD Unavailable Livan Sharif MD Unavailable Catherine Cm MD Unavailable + Sydnie Martinez RN Unavailable Unavailable Alfonso Renteria MD Unavailable [phone] Esha GrimmC Primary Care Provider [phone] Cheng Todd PA-C Unavailable [phone] Armani Radha Stovall MAIL CENSOR PLANT PACKER Unavailable Jelena David OD Unavailable Pao Joseph RN Unavailable Unavailable Esha GrimmC Unavailable Valery Veronica-C Unavailable [phone] Rey Tay MD Unavailable Rocky Zepeda DO Unavailable Philip Dumont MD Unavailable [phone] Reason for Visit * Reason Onset Date Comments Prior Auth - Medication 10/12/2022 Lidocain e (LIDOCARE) 4 % Patch - EPA DENIED Encounter Details Date Type Department Care Team (Late st Contact Info) Description 10/12/2022 Telephone [facility] [address] [place] [phone] Lauren Claudio PA-C [address] [place] [address] Prior Auth - Medication (Lidocaine [...] How often do you attend adventist or mandaen serv ices? Never 09/22/2021 Do you belong [...] Answer Date Recorded PHQ-2 Score 1 10/11/2022 [facility] of Occupat [...] slept in a intermediate (including now)? No 09/22/2021 [place] Depression Scale Answer Date Recorded [place] Depression Score 5 01/14/2021 Last EPDS Self [...] Info) Description 11/01/2023 8:00 AM CDT Appointment [facility] [address] [place] [address] Lauren Claudio PA-C [address] [place] [address] 11/03/2023 8:00 AM CDT Office Visit [address] [phone] Valery Veronica PA-C 909 [place] [address] 11/29/2023 8:00 AM CDT Office Visit [facility] [address] [place] [phone] Esha Grimm PA-C [address] [place] [phone] 12/19/2023 11:30 AM CDT Hospital Encounter [address] [phone] Rocky Zepeda DO 500 [place], [place] 803855 12/19/2023 11:30 AM CDT - 12/19/2023 12:00 PM CDT Surgery [address] [phone] Rocky Zepeda DO 500 [place], [place] 263385 Esophagoscopy, gastroscopy, duodenoscopy (EGD), combined 01/02/2024 8:00 AM CDT Office Visit [address] [phone] Lauren Claudio PA-C [address] [place], [place] [phone] Kelli Perez MD [address] [facility] 056194 Scheduled Procedures Name Priority Associated Diagnoses Date/Ti [...] documented as of this encounter Care Teams Lead Android Developer Relationship Specialty Start Date End Date Marija Edgar APRN PLANT PACKER PCP - General Nurse Practitioner 04/30/20 04/14/23 Esha Grimm PA-C [address] [place] [address] PCP - General Family Medicine 05/04/23 Lita Oseguera Personal Advocate & Liaison (PAL) 02/28/20 03/27/23 Marija Edgar APRN PLANT PACKER Assigned PCP 06/08/20 04/29/23 Keisha Dotson MD 909 [place] [address] Assigned Neuroscience Provider 06/04/20 04/01/23 Diana Desir, [facility] 3033 [place] [address] Pharmacist Pharmacist 04/17/21 Rain Galaviz PA-C [address] [place] [address] [address] [place] [address] Physician Investigator Narcotics Dermatology 04/28/21 Tavia Wyatt MD [address] [place] [address] [place] [address] Dermatology 07/14/21 Erica Farrell APRN PLANT PACKER 6405 [facility] [address] [place] 712625 Nurse Practitioner Cardiovascular Disease 09/09/21 Rich Barrett MD 516 [facility] 9A [place], [place] 851075 Physician Ophthalmology 01/21/22 Neil Kent MD 500 [place], [place] 858565 MD Dermatology 02/24/22 Diana Desir [facility] 3033 [place], [place] 220676 Assigned MTM Pharmacist 04/07/22 Livan Sharif MD [address], [address] [place] [address] Cardiovascular Disease 05/14/22 Catherine Cm MD [address] [place], [place] 863545 Cardiovascular Disease 07/21/22 Valery Veronica, PA-C 9 [place], [place] 747595 Physician Investigator Narcotics Dermatology 07/21/22 Catherine Cm MD [address] [place] 981055 Assigned Heart and Vascular Provider 07/24/22 11/05/22 Brea Quinn APRN PLANT PACKER 500 [place], [place] 731745 Nurse Practitioner Dermatology 09/21/22 Brea Quinn APRN PLANT PACKER 6401 [facility] [place] DO[place] [address] Assigned Surgical Provider 10/09/22 [place] [address] [facility] 300 [place] [address] Assigned Musculoskeletal Provider 10/09/22 Livan Sharif MD [address], [facility] [address] [place] 383575 Assigned Heart and Vascular Provider 11/06/22 11/12/22 Catherine Cm MD [address] [facility] W[address] [place] [address] Assigned Heart and Vascular Provider 11/13/22 05/27/23 Sydnie Martinez RN Personal Advocate & Liaison (PAL) Family Medicine 03/28/23 07/31/23 Alfonso Renteria MD 5775 [facility] 200 [place] [address] Assigned Neuroscience Provider 04/02/23 Cheng Todd PA-C [address] [place] [address] Assigned PCP 04/30/23 07/15/23 Radha Lomeli APRN PLANT PACKER [address] [place] 701105 Assigned Heart and Vascular Provider 05/28/23 Jelena David OD 3305 [facility] [place] [address] Ophthalmology 06/15/23 Pao Joseph, RN Personal Advocate & Liaison (PAL) Nurse 08/01/23 Esha Grimm PA-C [address] [place] [address]682683 Assigned PCP 07/16/23 Valery Veroniac PA-C [address] [place] [address] 252065 Physician Investigator Narcotics Dermatology 09/19/23 Rey Tay MD [address] [place] [address] 217595 MD Gastroenterology 09/20/23 Rocky Zepeda DO [address] [place] [address] 856855 Physician Gastroenterology 09/20/23 Philip Dumont MD [address] [place] [address] 807515 Physician Ophthalmology 09/22/23 documented as of this encounter
--- OUTSIDE RECORDS SUMMARY | 2023-10-28 16:42 | XMS_ITS | Encounter Summary ---
Author Name Unknown Organization [facility] Address [address] [place] [address] Care Team Providers Care Security Systems Manager Name Role Phone OumarAlee layyn Unavailable Unavailable Marija Edgar APRN PROGRAMMING DIRECTOR Primary Care Provider U mandaailMarija Callaway APRN PROGRAMMING DIRECTOR Unavailable Unavail able Keisha Dotson MD Unavailable [phone] Diana Desir [facility] Unavailable [phone] Rain Galaviz PA-C Unavailable [phone] Tavia Wyatt MD Unavailable Unavailable Erica Farrell APRN PROGRAMMING DIRECTOR Unavailable Rich Barrett MD Unavailable [phone] Neil Kent MD Unavailable Diana Desir [facility] Unavailable [phone] Livan Sharif MD Unavailable Catherine Cm MD Unavailable + Valery Veronica PA-C Unavailable [phone] Catherine Cm MD Unavailable + Brea Quinn APRN PROGRAMMING DIRECTOR Unavailable [phone] Brea Quinn APRN PROGRAMMING DIRECTOR Unavailable [phone] Jose Francisco Johnson MD Unavailable Livan Sharif MD Unavailable Catherine Cm MD Unavailable + Sydnie Martinez RN Unavailable Unavailable Alfonso Renteria MD Unavailable [phone] Esha Grimm PA-C Primary Care Provider Cheng Todd PA-C Unavailable Radha Lomeli APRN PROGRAMMING DIRECTOR Unavailable Jelena David OD Unavailable [phone] Pao Joseph RN Unavailable Unavailable Esha GrimmC Unavailable [phone] Valery Veronica PA-C Unavailable [phone] Rey Tay MD Unavailable Rocky Zepeda DO Unavailable Philip Dumont MD Unavailable Reason for Visit * Reason Onset Date Comments MyChart Communication 10/27/2022 Encounter Details Date Type Department Care Team (Late st Contact Info) Description 10/27/2022 My[facility] Medical Advice [address] [address] Brea Quinn, MEDICARE BILLER PROGRAMMING DIRECTOR [address] [place] [address] 695172 [employer] Communication (/) Social History Tobacco Use Types [...] How often do you attend shinto or uatsdin serv ices? Never 09/22/2021 Do [...] Answer Date Recorded PHQ-2 Score 1 10/11/2022 [facility] [place] of Occupat ional Health - Occupational Stress [...] or slept in a fdc (including now)? No 09/22/2021 [place] Depression Scale Answer Date Recorded [place] Depression Score 5 01/14/2021 Last EPDS [...] and advise. Letha Driver RN [facility] [place] [phone] documented in this encounter Plan of Treatment Upcoming Encounters Date Type Department Care Team (Late st Contact Info) Description 11/01/2023 8:00 AM CDT Appointment [facility] [address] [facility] [address] Lauren Claudio PA-C [address] [place], [place] [phone] 11/03/2023 8:00 AM CDT Office Visit [address] [phone] Valery Veronica PA-C [address] [place] [address] 11/29/2023 8:00 AM CDT Office Visit [facility] [address] [place] [address] [phone] Esha Grimm PA-C [address] [place] [address] [phone] 12/19/2023 11:30 AM CDT Hospital Encounter [address] [phone] Rocky Zepeda DO [address] [place] [address] 12/19/2023 11:30 AM CDT - 12/19/2023 12:00 PM CDT Surgery [address] [place] [phone] ZepedaEvansua, DO 500 [place], [place] 832215 Esophagoscopy, gastroscopy, duodenoscopy (EGD), combined 01/02/2024 8:00 AM CDT Office [facility] [address] [place] [address] [phone] Lauren Claudio PA-C [address] [place], [place] [phone] Kelli Perez MD [address] [place] [address] Scheduled Procedures Name Priority Associated Diagnoses [...] as of this encounter Care Teams Security Systems Manager Relationship Specialty Start Date End Date Marija Edgar APRN PROGRAMMING DIRECTOR PCP - General Nurse Practitioner 04/30/20 04/14/23 Esha Grimm PA-C [address] [place] [phone] PCP - General Family Medicine 05/04/23 Lita Oseguera Personal Advocate & Liaison (PAL) 02/28/20 03/27/23 Marija Edgar APRN PROGRAMMING DIRECTOR Assigned PCP 06/08/20 04/29/23 Keisha Dotson MD 9 [place] [address] Assigned Neuroscience Provider 06/04/20 04/01/23 Diana Desir, [facility] [address] [place] [address] Pharmacist Pharmacist 04/17/21 Rain Galaviz PA-C [address] [place] [address] DR [address] [place] [address] Physician Ultra Sound Technician Dermatology 04/28/21 Tavia Wyatt MD [address] [place] [address] DR RAZO [facility] [place] [address] Dermatology 07/14/21 Erica Farrell APRN PROGRAMMING DIRECTOR [address] [place] [address] Nurse Practitioner Cardiovascular Disease 09/09/21 Rich Barrett MD [address] [place] [address] 024275 Physician Ophthalmology 01/21/22 Neil Kent MD [address] [place] [address] 978865 Dermatology 02/24/22 Diana Desir, [facility] [place] [address] Assigned MTM Pharmacist 04/07/22 Livan Sharif MD [address] [place] [address] Cardiovascular Disease 05/14/22 Catherine Cm MD [address] [place] [address] Cardiovascular Disease 07/21/22 Vlaery Veronica, PAUcheC [address] [place] [address] 089795 Physician Ultra Sound Technician Dermatology 07/21/22 Catherine Cm MD [address] [place] [address] Assigned Heart and Vascular Provider 07/24/22 11/05/22 Brea Quinn APRN PROGRAMMING DIRECTOR [address] [place] [address] [phone] Nurse Practitioner Dermatology 09/21/22 Brea Quinn APRN PROGRAMMING DIRECTOR [address] [place] [address] [facility] [place] 833552 Assigned Surgical Provider 10/09/22 [place] [address]ZO [facility] [place] [address] Assigned Musculoskeletal Provider 10/09/22 Livan Sharif MD [address] [place] [address] Assigned Heart and Vascular Provider 11/06/22 11/12/22 Catherine Cm MD [address] [place] 019355 Assigned Heart and Vascular Provider 11/13/22 05/27/23 Sydnie Martinez RN Personal Advocate & Liaison (PAL) Family Medicine 03/28/23 07/31/23 Alfonso Renteria MD [address] [facility] [address] 200 [place] [address] Assigned Neuroscience Provider 04/02/23 Cheng Todd PA-C [address] [place], [place] 18581124 Assigned PCP 04/30/23 07/15/23 Radha Lomeli, MEDICARE BILLER PROGRAMMING DIRECTOR [address] [place] 620485 Assigned Heart and Vascular Provider 05/28/23 Jelena David OD [address] [facility] [place] [address] Ophthalmology 06/15/23 Pao Joseph, VJ Personal Advocate & Liaison (PAL) Nurse 08/01/23 Esha Grimm PA-C [address] [place] [address]-425583 Assigned PCP 07/16/23 Valery Veronica PA-C 909 [place], [place] 070585 Physician Ultra Sound Technician Dermatology 09/19/23 Rey Tay MD 909 [place], [place] 571585 MD Gastroenterology 09/20/23 Rocky Zepeda DO [address] [place] [address] 104165 Physician Gastroenterology 09/20/23 Philip Dumont MD 516 [place] [address] Physician Ophthalmology 09/22/23 documented as of this encounter
--- OUTSIDE RECORDS SUMMARY | 2023-10-28 16:42 | XMS_ITS | Encounter Summary ---
Author Name Unknown Organization [facility] Address [address] [place] [address] Care Team Providers Care Blending Operator Name Role Phone OumarAlee layyn Unavailable Unavailable Marija Edgar APRN LENS MAKER Primary Care Provider U mandaailMarija Callaway APRN LENS MAKER Unavailable Unavail able Keisha Dotson MD Unavailable [phone] Diana Desir [facility] Unavailable [phone] Rain Galaviz PA-C Unavailable [phone] Tavia Wyatt MD Unavailable Unavailable Erica Farrell APRN LENS MAKER Unavailable Rich Barrett MD Unavailable [phone] Neil Kent MD Unavailable Diana Desir [facility] Unavailable [phone] Livan Sharif MD Unavailable Catherine Cm MD Unavailable + Valery Veronica PA-C Unavailable [phone] Catherine Cm MD Unavailable + Brea Quinn APRN LENS MAKER Unavailable [phone] Brea Quinn APRN LENS MAKER Unavailable [phone] Jose Francisco Johnson MD Unavailable Livan Sharif MD Unavailable Catherine Cm MD Unavailable + Sydnie Martinez RN Unavailable Unavailable Alfonso Renteria MD Unavailable [phone] Esha Grimm PA-C Primary Care Provider Cheng Todd PA-C Unavailable Armani Radha Stovall REMANUFACTURING TECHNICIAN LENS MAKER Unavailable Jelena David Radha OD Unavailable [phone] Pao Joseph RN Unavailable Unavailable Esha GrimmC Unavailable [phone] Valery Veronica PA-C Unavailable [phone] Rey Tay MD Unavailable Rocky Zepeda DO Unavailable Philip Dumont MD Unavailable [phone] Reason for Visit * Reason Onset Date Comments Pt. Information/instruction 10/11/2022 Appointment 10/11/2022 Encounter Details Date Type Department Care Team (Late st Contact Info) Description 10/11/2022 Telephone [facility] Sports Medicine [facility] [address] [place] [address] 300 [place], [place] 088167 [place] [address] [facility] 300 [place] [address] Pt. Information/instructio n; Appointment Social History Tobacco [...] How often do you attend restoration or quaker serv ices? Never 09/22/2021 Do you belong [...] Answer Date Recorded PHQ-2 Score 1 10/11/2022 [facility] [place] of Occupat ional Health - Occupational Stress [...] in a mcc (including now)? No 09/22/2021 [place] Depression Scale Answer Date Recorded [place] Depression Score 5 01/14/2021 Last EPDS Self [...] Treasure Lee - 10/15/2022 2:14 PM CDT [facility] Call Center Phone Message May a detailed message be left on voicemail: yes Reason for Call: Other: Patient's QRCMeredith is wondering if she can also be conference in on patient's upcoming appointment (10/27). Action Taken: Other: [facility] Sports Medicine Travel Screening: Not Applicable * Telephone Encounter - Mary Easley - 10/12/2022 12:47 PM CDT Called [facility] to discuss what they are needing from 's office. No answer. Left message to call back Kristina Easley ATC * Telephone Encounter - Treasure Lee - 10/11/2022 10:05 AM CDT [facility] Call Center Phone Message May a detailed message be left on voicemail: yes Reason for Call: Other: Please contact patient's radio news anchorRosalva so she can authorize patient's MRI. Rosalva's contact info: phone# [phone] fax# [phone] Action Taken: Other: [facility] Sports Medicine Travel Screening: Not Applicable documented in this encounter Plan of Treatment Upcoming Encounters Date Type Department Care Team (Late st Contact Info) Description 11/01/2023 8:00 AM CDT Appointment [facility] [address] [place] [address] Lauren Claudio PA-C [address] [place], [place] [phone] 11/03/2023 8:00 AM CDT Office Visit [address] [phone] Valery Veronica PA-C 909 [place] [address] 11/29/2023 8:00 AM CDT Office Visit [address] [phone] Esha Grimm PA-C [address] [place] [address] [phone] 12/19/2023 11:30 AM CDT Hospital Encounter [address] [phone] Rocky Zepeda DO 500 [place], [place] 295905 12/19/2023 11:30 AM CDT - 12/19/2023 12:00 PM CDT Surgery [address] [phone] Rocky Zepeda DO 500 [place], [place] 534365 Esophagoscopy, gastroscopy, duodenoscopy (EGD), combined 01/02/2024 8:00 AM CDT Office Visit [facility] [address] [phone] Lauren Claudio PA-C [address] [place], [place] [phone] Kelli Perez MD [address] [facility] 106 [place] [address] Scheduled Procedures Name Priority Associated [...] documented as of this encounter Care Teams Blending Operator Relationship Specialty Start Date End Date Marija Edgar APRN LENS MAKER PCP - General Nurse Practitioner 04/30/20 04/14/23 Esha Grimm PA-C [address] [place] [phone] PCP - General Family Medicine 05/04/23 Lita Oseguera Personal Advocate & Liaison (PAL) 02/28/20 03/27/23 Marija Edgar APRN LENS MAKER Assigned PCP 06/08/20 04/29/23 Keisha Dotson MD 909 [place], [place] 758105 Assigned Neuroscience Provider 06/04/20 04/01/23 Diana Desir [facility] [address] [place] [address] Pharmacist Pharmacist 04/17/21 Rain Galaviz PA-C [address] [place] [address] [address] [place] [address] Physician Spray Drier Operator Dermatology 04/28/21 Tavia Wyatt MD [address] [place] [address] DR [facility] [facility] [address] Dermatology 07/14/21 Erica Farrell APRN LENS MAKER [address] [place] [address] Nurse Practitioner Cardiovascular Disease 09/09/21 Rich Barrett MD [address] [place] [address], [facility] [address]A [place] [address] Physician Ophthalmology 01/21/22 Neil Kent MD 500 [place], [place] 515455 Dermatology 02/24/22 Diana Desir, [facility] [address] [place] [address] Assigned MTM Pharmacist 04/07/22 Livan Sharif MD [address] [place] 445515 Cardiovascular Disease 05/14/22 Catherine Cm MD [address] [place] 95[address] Cardiovascular Disease 07/21/22 Valery Veronica PA-C 909 [place], [place] 502485 Physician Spray Drier Operator Dermatology 07/21/22 Catherine Cm MD [address] [place] [address] [place] [address] Assigned Heart and Vascular Provider 07/24/22 11/05/22 Brea Quinn APRN LENS MAKER [address] [place] [address] [phone] Nurse Practitioner Dermatology 09/21/22 Brea Quinn APRN LENS MAKER 6401 [place], [place] 598832 Assigned Surgical Provider 10/09/22 [place] [address] [place] [address] 385517 Assigned Musculoskeletal Provider 10/09/22 Livan Sharif MD [address] [place] [address] [place] 033705 Assigned Heart and Vascular Provider 11/06/22 11/12/22 Catherine Cm MD [address] [place] [address] [place] 618125 Assigned Heart and Vascular Provider 11/13/22 05/27/23 Sydnie Martinez RN Personal Advocate & Liaison (PAL) Family Medicine 03/28/23 07/31/23 MyraAlfonso garcia MD [address] [facility] [address] 200 [place] [address] Assigned Neuroscience Provider 04/02/23 Cheng Todd PA-C 17[address] [place], [place] [phone] Assigned PCP 04/30/23 07/15/23 Radha Lomeli APRN LENS MAKER [address] [facility] [address] [place] 022615 Assigned Heart and Vascular Provider 05/28/23 Jelena David OD [address] [place] [address] Ophthalmology 06/15/23 Pao Joseph, VJ Personal Advocate & Liaison (PAL) Nurse 08/01/23 Esha Grimm PA-C [address] [place] [phone] Assigned PCP 07/16/23 Valery Veronica PA-C [address] [place] [address] 836265 Physician Spray Drier Operator Dermatology 09/19/23 Rey Tay MD [address] [place] [address] 372875 Gastroenterology 09/20/23 Rocky Zepeda DO [address] [place] [address] 916115 Physician Gastroenterology 09/20/23 Philip Dumont MD 6 [place] [address] Physician Ophthalmology 09/22/23 documented as of this encounter
--- OUTSIDE RECORDS SUMMARY | 2023-10-28 16:42 | XMS_ITS | Encounter Summary ---
Author Name Unknown Organization [place] Address [address] [place] [address] Care Team Providers Care Polysomnography Technician Name Role Phone OumarAlee layyn Unavailable Unavailable Marija Edgar APRN CUSTOM FRAMING SPECIALIST Primary Care Provider U mandaailMarija Callaway APRN CUSTOM FRAMING SPECIALIST Unavailable Unavail able Keisha Dotson MD Unavailable [phone] Diana Desir [facility] Unavailable [phone] Rain Galaviz PA-C Unavailable [phone] Tavia Wyatt MD Unavailable Unavailable Erica Farrell APRN CUSTOM FRAMING SPECIALIST Unavailable Rich Barrett MD Unavailable [phone] Neil Kent MD Unavailable Diana Desir [facility] Unavailable [phone] Livan Sharif MD Unavailable Catherine Cm MD Unavailable + Valery Veronica PA-C Unavailable [phone] Catherine Cm MD Unavailable + Brea Quinn APRN CUSTOM FRAMING SPECIALIST Unavailable [phone] Brea Quinn APRN CUSTOM FRAMING SPECIALIST Unavailable [phone] Jose Francisco Johnson MD Unavailable Livan Sharif MD Unavailable Catherine Cm MD Unavailable + Sydnie Martinez RN Unavailable Unavailable Alfonso Renteria MD Unavailable [phone] Esha GrimmC Primary Care Provider Cheng Todd PAUcheC Unavailable Armani Radha [place] AUDITOR CUSTOM FRAMING SPECIALIST Unavailable [phone] Jelena David OD Unavailable Pao Joseph RN Unavailable Unavailable Esha GrimmC Unavailable [phone] Valery VeronicaC Unavailable Rey Tay MD Unavailable Rocky Zepeda DO Unavailable Philip Dumont MD Unavailable [phone] Encounter Details Date Type Department Care Team (Late st Contact Info) Description 10/22/2022 [facility] Medical Advice [facility] [address] [place] [address] Lauren Claudio PA-C [id number] [place] [address] Social History Tobacco Use Types Packs/Day [...] How often do you attend yarsani or roman catholic serv ices? Never 09/22/2021 [...] Answer Date Recorded PHQ-2 Score 1 10/11/2022 [facility] [...] in a longterm (including now)? No 09/22/2021 [place] Depression Scale Answer Date Recorded [place] Depression Score 5 01/14/2021 Last EPDS Self [...] Description 11/01/2023 8:[address] [facility] [address] [address] Lauren Claudio PA-C [address] [place] [address] 11/03/2023 8:00 AM CDT Office Visit [facility] 830 [place] [address] Valery Veronica PA-C 909 [place] [address] 11/29/2023 8:00 AM CDT Office Visit [address] [phone] Esha Grimm PA-C [address] [place] [phone] 12/19/2023 11:30 AM CDT Hospital Encounter [address] [phone] Rocky Zepeda DO 500 [place] [address] 12/19/2023 11:30 AM CDT - 12/19/2023 12:00 PM CDT Surgery [address] [phone] Rocky Zepeda DO 500 [place], [place] 282445 Esophagoscopy, gastroscopy, duodenoscopy (EGD), combined 01/02/2024 8:00 AM CDT Office Visit [facility] [address] [phone] Lauren Claudio PA-C [address] [place] [address] Kelli Perez MD [address] [facility] 106 [place] [address] Scheduled Procedures Name Priority Associated Diagnoses Date/Ti [...] documented as of this encounter Care Teams Polysomnography Technician Relationship Specialty Start Date End Date Marija Edgar APRN CUSTOM FRAMING SPECIALIST PCP - General Nurse Practitioner 04/30/20 04/14/23 Esha Grimm PA-C [address] [place] [address] PCP - General Family Medicine 05/04/23 Lita Oseguera Personal Advocate & Liaison (PAL) 02/28/20 03/27/23 Marija Edgar APRN CUSTOM FRAMING SPECIALIST Assigned PCP 06/08/20 04/29/23 Keisha Dotson MD 909 [place], [place] 535815 Assigned Neuroscience Provider 06/04/20 04/01/23 Diana Desir, [facility] [address] [place], [place] 316876 Pharmacist Pharmacist 04/17/21 Rain Galaviz PA-C [address] [place] [address] [address] [address] Physician Child And Adolescent Psychologist Dermatology 04/28/21 Tavia Wyatt MD [address] [place] [address] [address] [address] Dermatology 07/14/21 Erica Farrell APRN CUSTOM FRAMING SPECIALIST [address] [place] [address] Nurse Practitioner Cardiovascular Disease 09/09/21 Rich Barrett MD [address] 900845 Physician Ophthalmology 01/21/22 Neil Kent MD 500 [place], [place] 704885 Dermatology 02/24/22 Diana Desir, [facility] [address] [place] [address] Assigned MTM Pharmacist 04/07/22 Livan Sharif MD [address], [facility] [address] [place] 623495 Cardiovascular Disease 05/14/22 Catherine Cm MD [address] [place] [address] Cardiovascular Disease 07/21/22 Valery Veronica PA-C 909 [place] [address] Physician Child And Adolescent Psychologist Dermatology 07/21/22 Catherine Cm MD [address] [facility] [place] [address] Assigned Heart and Vascular Provider 07/24/22 11/05/22 Brea Quinn APRN CUSTOM FRAMING SPECIALIST 500 [place], [place] 834435 Nurse Practitioner Dermatology 09/21/22 Brea Quinn APRN CUSTOM FRAMING SPECIALIST 6401 [facility] [place], [place] 536252 Assigned Surgical Provider 10/09/22 [place] [address] [place] [address] Assigned Musculoskeletal Provider 10/09/22 Livan Sharif MD [address], [facility] [address] [place] 731565 Assigned Heart and Vascular Provider 11/06/22 11/12/22 Catherine Cm MD [address] [place] 891025 Assigned Heart and Vascular Provider 11/13/22 05/27/23 Sydnie Martinez RN Personal Advocate & Liaison (PAL) Family Medicine 03/28/23 07/31/23 Alfonso Renteria MD 5775 [facility] [address] 200 [place] [address] Assigned Neuroscience Provider 04/02/23 Cheng Todd PA-C [address] [place] [address] Assigned PCP 04/30/23 07/15/23 Radha Lomeli, ARLENE CUSTOM FRAMING SPECIALIST [address] [place] [address] Assigned Heart and Vascular Provider 05/28/23 Jelena David OD [address] [place] [address] Ophthalmology 06/15/23 Pao Joseph, VJ Personal Advocate & Liaison (PAL) Nurse 08/01/23 Esha Grimm PA-C [address] [place] [address] Assigned PCP 07/16/23 Valery Veronica PA-C [address] [place] [address] 341865 Physician Child And Adolescent Psychologist Dermatology 09/19/23 Rey Tay MD [address] [place] [address] 187705 Gastroenterology 09/20/23 Rocky Zepeda DO [address] [place] [address] 640035 Physician Gastroenterology 09/20/23 Philip Dumont MD 516 [place] [address] Physician Ophthalmology 09/22/23 documented as of this encounter
--- OUTSIDE RECORDS SUMMARY | 2023-10-28 16:42 | XMS_ITS | Encounter Summary ---
Author Name Unknown Organization [place] Address [address] [place] [address] Care Team Providers Care Fitting Room Supervisor Name Role Phone OumarAlee neriyn Unavailable Unavailable Marija Edgar APRN FREIGHT COORDINATOR Primary Care Provider U mandaailMarija Callaway APRN FREIGHT COORDINATOR Unavailable Unavail able Keisha Dotson MD Unavailable [phone] Diana Des[address] [facility] Unavailable Rain Galaviz PA-C Unavailable Tavia Wyatt MD Unavailable Unavailable Erica Farrell APRN FREIGHT COORDINATOR Unavailable Rich Barrett MD Unavailable [phone] Neil Kent MD Unavailable Diana Desir [facility] Unavailable [phone] Jelena David OD Unavailable Livan Sharif MD Unavailable Catherine Cm MD Unavailable + Valery Veronica PA-C Unavailable [phone] Catherine Cm MD Unavailable + Johnny Murillo MD Unavailable Brea Quinn APRN FREIGHT COORDINATOR Unavailable Brea Quinn FORENSIC MANAGER FREIGHT COORDINATOR Unavailable Jose Francisco Johnson MD Unavailable Livan Sharif MD Unavailable Catherine Cm MD Unavailable + Sydnie Martinez RN Unavailable Unavailable Alfonso Renteria MD Unavailable [phone] Esha Grimm PA-C Primary Care Provider Cheng Todd PA-C Unavailable Radha Lomeli FORENSIC MANAGER FREIGHT COORDINATOR Unavailable Frankie Jelena Garcia OD Unavailable Pao Joseph RN Unavailable Unavailable Esha Grimm PA-C Unavailable [phone] Valery Veronica PA-C Unavailable Rey Tay MD Unavailable Rocky Zepeda DO Unavailable Philip Dumont MD Unavailable [phone] Encounter Details Date Type Department Care Team (Late st Contact Info) Description 10/06/2022 [facility] Medical Advice [address] [place] [address] Brea Quinn APRN FREIGHT COORDINATOR 6401 [place], [place] [phone] Social History Tobacco Use Types Packs/Day Years [...] How often do you attend congregation or mormon serv ices? Never 09/22/2021 Do you belong [...] points; Administer PHQ-9 if positive 1 10/10/2022 [facility] - [facility]ational Stress Questionnaire [...] in a retirement (including now)? No 09/22/2021 [place] Depression Scale Answer Date Recorded [place] Depression Score 5 01/14/2021 Last EPDS Self [...] Info) Description 11/01/2023 8:00 AM CDT Appointment [facility] Imaging [address] [place] [address] Lauren Claudio PA-C [address] [place] [address] 11/03/2023 8:00 AM CDT Office Visit [address] [phone] Valery Veronica PA-C 909 [place] [address] 11/29/2023 8:00 AM CDT Office Visit [facility] [address] [place] [phone] Esha Grimm PA-C [address] [place] [phone] 12/19/2023 11:30 AM CDT Hospital Encounter [address] [phone] Rocky Zepeda DO 500 [place] [address] 12/19/2023 11:30 AM CDT - 12/19/2023 12:00 PM CDT Surgery [address] [phone] Rocky Zepeda DO 500 [place] [address] Esophagoscopy, gastroscopy, duodenoscopy (EGD), combined 01/02/2024 8:00 AM CDT Office Visit [facility] [address] [place] [phone] Lauren Claudio PA-C [address] [place], [place] [phone] Kelli Perez MD [address] [place] [address] Scheduled Procedures Name Priority Associated Diagnoses [...] Depression Total Score: 5 08/27/19 1:14 PM WEIGHT CHECKER documented as of this encounter Care Teams Fitting Room Supervisor Relationship Specialty Start Date End Date Marija Edgar APRN FREIGHT COORDINATOR PCP - General Nurse Practitioner 04/30/20 04/14/23 Esha Grimm PA-C [id number] [place] [phone] PCP - General Family Medicine 05/04/23 Lita Oseguera Personal Advocate & Liaison (PAL) 02/28/20 03/27/23 Marija Edgar APRN FREIGHT COORDINATOR Assigned PCP 06/08/20 04/29/23 Keisha Dotson MD [address] [place] [address] 547305 Assigned Neuroscience Provider 06/04/20 04/01/23 Diana Desir, [facility] [address] [place] [address] Pharmacist Pharmacist 04/17/21 Rain Galaviz PA-C [address] [place] [address] [address] [address] Physician Neurology Teacher Dermatology 04/28/21 Tavia Wyatt MD [address] [place] [address] [place] [address] Dermatology 07/14/21 Erica Farrell APRN FREIGHT COORDINATOR [address] [place] 5[address]35 Nurse Practitioner Cardiovascular Disease 09/09/21 Rich Barrett MD 516 [facility] 9A [place], [place] 866555 Physician Ophthalmology 01/21/22 Neil Kent MD 500 [place], [place] 663485 Dermatology 02/24/22 Diana Desir, [facility] [address] [place] [address] Assigned MTM Pharmacist 04/07/22 Jelena David OD 3305 [facility] [place] [address] Assigned Surgical Provider 05/08/22 10/08/22 Livan Sharif MD [address], [facility] [address] [place] 707795 Cardiovascular Disease 05/14/22 Catherine Cm MD [address] [facility] [address] [place] [address] 590575 Cardiovascular Disease 07/21/22 Valery Veronica, PAUcheC [address] [place] [address] 975745 Physician Neurology Teacher Dermatology 07/21/22 Catherine Cm MD [address] [facility] [place] 493135 Assigned Heart and Vascular Provider 07/24/22 11/05/22 Johnny Murillo MD [facility] [address] 517964 Assigned Musculoskeletal Provider 08/14/22 10/08/22 Brea Quinn APRN FREIGHT COORDINATOR [address] [place] [address] 388555 Nurse Practitioner Dermatology 09/21/22 Brea Quinn APRN FREIGHT COORDINATOR [address] [place] [address] ENMA DOE 447162 Assigned Surgical Provider 10/09/22 [place] [address] [place] [address] 582117 Assigned Musculoskeletal Provider 10/09/22 Livan Sharif MD [address], [facility] [address] [place], [place] 446865 Assigned Heart and Vascular Provider 11/06/22 11/12/22 Catherine Cm MD [address] [place], [place] 098075 Assigned Heart and Vascular Provider 11/13/22 05/27/23 Sydnie Martinez, VJ Personal Advocate & Liaison (PAL) Family Medicine 03/28/23 07/31/23 Alfonso Renteria MD 5775 [facility] 200 [place], [place] 161406 Assigned Neuroscience Provider 04/02/23 Cheng Todd PA-C [address] [place], [place] 89229124 Assigned PCP 04/30/23 07/15/23 Radha Lomeli APRN FREIGHT COORDINATOR [address] [place] 355325 Assigned Heart and Vascular Provider 05/28/23 Jelena David OD [address] [facility] [place] [address] Ophthalmology 06/15/23 Pao Joseph, VJ Personal Advocate & Liaison (PAL) Nurse 08/01/23 Esha Grimm PAUcheC [address] [place] [address]89[address] Assigned PCP 07/16/23 Valery Veronica PA-C 909 [place], [place] 176765 Physician Neurology Teacher Dermatology 09/19/23 Rey Tay MD [address] [place] [address] 048975 Gastroenterology 09/20/23 Rocky Zepeda DO [address] [place] [address] 225245 Physician Gastroenterology 09/20/23 Philip Dumont MD [address] [place] [address] 336805 Physician Ophthalmology 09/22/23 documented as of this encounter
--- OUTSIDE RECORDS SUMMARY | 2023-10-28 16:42 | XMS_ITS | Encounter Summary ---
Author Name Unknown Organization [place] Address [address] [place] [address] Care Team Providers Care Environmental Science Professor Name Role Phone OumarAlee layyn Unavailable Unavailable Marija Edgar APRN FLOWER POT PRESS OPERATOR Primary Care Provider U mandaailMarija Callaway APRN FLOWER POT PRESS OPERATOR Unavailable Unavail able Keisha Dotson MD Unavailable [phone] Diana Desir [facility] Unavailable [phone] Rain Galaviz PA-C Unavailable [phone] Tavia Wyatt MD Unavailable Unavailable Erica Farrell APRN FLOWER POT PRESS OPERATOR Unavailable Rich Barrett MD Unavailable [phone] Neil Kent MD Unavailable Diana Desir [facility] Unavailable [phone] Livan Sharif MD Unavailable Catherine Cm MD Unavailable + Valery Veronica PA-C Unavailable [phone] Catherine Cm MD Unavailable + Brea Quinn APRN FLOWER POT PRESS OPERATOR Unavailable [phone] Brea Quinn APRN FLOWER POT PRESS OPERATOR Unavailable [phone] Jose Francisco Johnson MD Unavailable Livan Sharif MD Unavailable Catherine Cm MD Unavailable + Sydnie Martinez RN Unavailable Unavailable Alfonso Renteria MD Unavailable [phone] Esha Grimm PA-C Primary Care Provider Cheng Todd PA-C Unavailable Armani Radha Stovall DIRECTOR OF CHANNEL MARKETING FLOWER POT PRESS OPERATOR Unavailable Jelena David OD Unavailable Pao Joseph RN Unavailable Unavailable Esha GrimmC Unavailable [phone] Valery Veronica PA-C Unavailable Rey Tay MD Unavailable Rocky Zepeda DO Unavailable Philip Dumont MD Unavailable [phone] Encounter Details Date Type Department Care Team (Late st Contact Info) Description 10/22/2022 My[facility] Medical Advice [facility] [address] 300 [place], [place] [phone] [place] [address] [facility] 300 [place], [place] [phone] Social History Tobacco Use Types Packs/Day Years [...] How often do you attend catholic or muslim serv ices? Never 09/22/2021 Do you belong [...] Answer Date Recorded PHQ-2 Score 1 10/11/2022 [facility] Occupat ional Health - Occupational Stress [...] in a senior living (including now)? No 09/22/2021 [place] Depression Scale Answer Date Recorded [place] Depression Score 5 01/14/2021 Last EPDS Self [...] [facility] [address] [place] [address] Lauren Claudio PA-C [address] [place], [place] [phone] 11/03/2023 8:00 AM CDT Office Visit [address] [address] Valery Veronica PA-C [address] [place] [address] 11/29/2023 8:00 AM CDT Office Visit [address] [phone] Esha Grimm PA-C [address] [place] [address] 12/19/2023 11:30 AM CDT Hospital Encounter [facility] 909 [facility] 5th [place] [phone] Rocky Zepeda, [address] [place] [address] 12/19/2023 11:30 AM CDT - 12/19/2023 12:00 PM CDT Surgery [facility] 909 [facility] [address] 5th [place] [phone] Rocky Zepeda, DO [address] [place], [place] [address] Esophagoscopy, gastroscopy, duodenoscopy (EGD), combined 01/02/2024 8:00 AM CDT Office Visit [facility] [place] [address] [place] [phone] Lauren Claudio PA-C [address] [place] [address] Kelli Perez MD [address] [place] [address] Scheduled Procedures Name Priority Associated Diagnoses [...] as of this encounter Care Teams Environmental Science Professor Relationship Specialty Start Date End Date Marija Edgar APRN FLOWER POT PRESS OPERATOR PCP - General Nurse Practitioner 04/30/20 04/14/23 Esha Grimm PA-C [address] [place] [address]31627[address] PCP - General Family Medicine 05/04/23 Lita Oseguera Personal Advocate & Liaison (PAL) 02/28/20 03/27/23 Marija Edgar APRN FLOWER POT PRESS OPERATOR Assigned PCP 06/08/20 04/29/23 Keisha Dotson MD 909 [place] [address] Assigned Neuroscience Provider 06/04/20 04/01/23 Diana Desir, [facility] [address] [place] [address] Pharmacist Pharmacist 04/17/21 Rain Galaviz PA-C [address] [place] [address] [address] [place] [address] Physician Instrument Person Dermatology 04/28/21 Tavia Wyatt MD [address] [place] [address] [address] [place] [address] Dermatology 07/14/21 Erica Farrell APRN FLOWER POT PRESS OPERATOR [address] [place] [address] Nurse Practitioner Cardiovascular Disease 09/09/21 Rich Barrett MD [address] [place] [address] Physician Ophthalmology 01/21/22 Neil Kent MD [address] [place] [address] 455345 Dermatology 02/24/22 Diana Desir, [facility] [address] [place] [address] Assigned MTM Pharmacist 04/07/22 Livan Sharif MD [address] [place] [address] [place] 458785 Cardiovascular Disease 05/14/22 Catherine Cm MD [address] [place] [address] [address] [address] 838335 Cardiovascular Disease 07/21/22 Valery Veronica, PA-C [address] [place] [address] 912515 Physician Instrument Person Dermatology 07/21/22 Catherine Cm MD [address] [place] [address] [place] 967035 Assigned Heart and Vascular Provider 07/24/22 11/05/22 Brea Quinn APRN FLOWER POT PRESS OPERATOR [address] [place] [address] 298365 Nurse Practitioner Dermatology 09/21/22 Brea Quinn APRN FLOWER POT PRESS OPERATOR [address] [place] [address] 846602 Assigned Surgical Provider 10/09/22 [place] [address] [place] 927177 Assigned Musculoskeletal Provider 10/09/22 Livan Sharif MD [address] [place] [address] [address] 017795 Assigned Heart and Vascular Provider 11/06/22 11/12/22 Catherine Cm MD [address] [place] [address] Assigned Heart and Vascular Provider 11/13/22 05/27/23 Sydnie Martinez RN Personal Advocate & Liaison (PAL) Family Medicine 03/28/23 07/31/23 Alfonso Renteria MD 5775 [facility] 200 [place], [place] 630596 Assigned Neuroscience Provider 04/02/23 Cheng Todd PA-C [address]507 [place], [place] 62464124 Assigned PCP 04/30/23 07/15/23 Radha Lomeli APRN FLOWER POT PRESS OPERATOR [address] [place] 09[address]95 Assigned Heart and Vascular Provider 05/28/23 Jelena David OD [address] [place] [address] Ophthalmology 06/15/23 Pao Joseph, VJ Personal Advocate & Liaison (PAL) Nurse 08/01/23 Esha Grimm PA-C [address] [place] [phone] Assigned PCP 07/16/23 Valery Veronica PA-C 909 [place], [place] 484665 Physician Instrument Person Dermatology 09/19/23 Rey Tay MD 909 [place], [place] 354485 MD Gastroenterology 09/20/23 Rocky Zepeda DO [address] [place] [address] 582965 Physician Gastroenterology 09/20/23 Philip Dumont MD 6 [place], [place] 935165 Physician Ophthalmology 09/22/23 documented as of this encounter
--- OUTSIDE RECORDS SUMMARY | 2023-10-28 16:42 | XMS_ITS | Encounter Summary ---
Author Name Unknown Organization [place] Address [address] [place] [address] Care Team Providers Care Footwear Production Machine Operator Name Role Phone Lita Oseguera Unavailable Unavailable Marija Edgar APRN BRAND STRATEGIST Primary Care Provider U mandaailMarija Callaway APRN, CNP Unavailable Unavail able Keisha Dotson MD Unavailable [phone] Diana Desir [facility] Unavailable [phone] Rain Galaviz PA-C Unavailable [phone] Tavia Wyatt MD Unavailable Unavailable Erica Farrell APRN BRAND STRATEGIST Unavailable Rich Barrett MD Unavailable [phone] Neil Kent MD Unavailable Diana Desir [facility] Unavailable [phone] Livan Sharif MD Unavailable Catherine Cm MD Unavailable + Valery Veronica PA-C Unavailable [phone] Brea Quinn APRN BRAND STRATEGIST Unavailable Brea Quinn VARIETY LATHE OPERATOR BRAND STRATEGIST Unavailable Jose Francisco Johnson MD Unavailable Livan Sharif MD Unavailable Catherine Cm MD Unavailable + Sydnie Martinez RN Unavailable Unavailable Alfonso Renteria MD Unavailable [phone] Esha GrimmC Primary Care Provider Cheng ToddC Unavailable [phone] Radha Lomeli APRN BRAND STRATEGIST Unavailable [phone] FrankieJelena OD Unavailable Pao Joseph RN Unavailable Unavailable Esha Grimm PA-C Unavailable [phone] Valery VeronicaC Unavailable Rey Tay MD Unavailable Rocky Zepeda DO Unavailable Philip Dumont MD Unavailable [phone] Encounter Details Date Type Department Care Team (Late st Contact Info) Description 11/10/2022 [facility] [address] [address] Lauren Claudio PA-C [address] [place] [address] Social History Tobacco Use Types Packs/Day [...] How often do you attend anabaptist or druze serv ices? Never 09/22/2021 Do you belong [...] Answer Date Recorded PHQ-2 Score 1 10/11/2022 [facility] [place] of Occupat ional Health - Occupational Stress [...] a care home (including now)? No 09/22/2021 Portland Depression Scale Answer Date Recorded [place] Depression Score 5 01/14/2021 Last EPDS Self [...] [facility] [address] [place] [phone] Lauren Claudio, PAUcheC [address] [place] [address] 11/03/2023 8:00 AM CDT Office Visit [facility] [address] [place] [phone] Valery Veronica PA-C [address] [place] [address] 11/29/2023 8:00 AM CDT Office Visit [facility] [address] [place] [address] [phone] Esha Grimm PA-C [address] [place] [phone] 12/19/2023 11:30 AM CDT Hospital Encounter [address] [phone] Rocky Zepeda DO 500 [place] [address] 12/19/2023 11:30 AM CDT - 12/19/2023 12:00 PM CDT Surgery [address] [phone] Rocky Zepeda DO 500 [place] [address] Esophagoscopy, gastroscopy, duodenoscopy (EGD), combined 01/02/2024 8:00 AM CDT Office Visit [facility] [address] [phone] Lauren Claudio PA-C [address] [place] [address] Kelli Perez MD [address] [place], [place] 6[address] Scheduled Procedures Name Priority Associated Diagnoses Date/Ti [...] documented as of this encounter Care Teams Footwear Production Machine Operator Relationship Specialty Start Date End Date Marija Edgar APRN BRAND STRATEGIST PCP - General Nurse Practitioner 04/30/20 04/14/23 Esha Grimm PAUcheC [address] [place] [phone] PCP - General Family Medicine 05/04/23 Lita Oseguera Personal Advocate & Liaison (PAL) 02/28/20 03/27/23 Marija Edgar APRN BRAND STRATEGIST Assigned PCP 06/08/20 04/29/23 Keisha Dotson MD 909 [place] [address] Assigned Neuroscience Provider 06/04/20 04/01/23 Diana Desir, [facility] [address] [facility] [place] [address] Pharmacist Pharmacist 04/17/21 Rain Galaviz PA-C [address] [place] [address] [address] [place] [address] Physician Oncology Specialist Dermatology 04/28/21 Tavia Wyatt MD [address] [place] [address] [address] [place] [address] Dermatology 07/14/21 Erica Farrell APRN BRAND STRATEGIST [address] [place], [place] 809905 Nurse Practitioner Cardiovascular Disease 09/09/21 Rich Barrett MD [address] [place] [address] 699775 Physician Ophthalmology 01/21/22 Neil Kent MD [address] [place] [address] 595745 Dermatology 02/24/22 [facility] [address] [place] [address] 149566 Assigned [place] Pharmacist 04/07/22 Livan Sharif MD [address], [facility] [address] [place], [place] 9[address] Cardiovascular Disease 05/14/22 Catherine Cm MD [address] [facility] [address] [place], [place] 994535 Cardiovascular Disease 07/21/22 Valery Veronica, [place]OMAC [address] [place] [address] Physician Oncology Specialist Dermatology 07/21/22 Brea Quinn APRN BRAND STRATEGIST 500 [place] [address] Nurse Practitioner Dermatology 09/21/22 Brea Quinn APRN BRAND STRATEGIST 6401 [place] [address] Assigned Surgical Provider 10/09/22 [place] [address] [address] Assigned Musculoskeletal Provider 10/09/22 Livan Sharif MD [address], [facility] [address] [place] [address] Assigned Heart and Vascular Provider 11/06/22 11/12/22 Catherine Cm MD [address] [facility] [address] [place] [address] Assigned Heart and Vascular Provider 11/13/22 05/27/23 Sydnie Martinez RN Personal Advocate & Liaison (PAL) Family Medicine 03/28/23 07/31/23 Alfonso Renteria MD [address] [facility] 200 [place], [place] 287766 Assigned Neuroscience Provider 04/02/23 Cheng Todd PA-C [address] [place], [place] [phone] Assigned PCP 04/30/23 07/15/23 Radha Lomeli, ARLENE BRAND STRATEGIST 6405 [facility] [address] [place], [place] 775585 Assigned Heart and Vascular Provider 05/28/23 Jelena David OD [address] [facility] [place] [address] MD Ophthalmology 06/15/23 Pao Joseph, VJ Personal Advocate & Liaison (PAL) Nurse 08/01/23 Esha Grimm PA-C [address] [place] [phone] Assigned PCP 07/16/23 Valery Veronica PA-C [address] [place] [address] 611745 Physician Oncology Specialist Dermatology 09/19/23 Rey Tay MD [address] [place] [address] 869905 MD Gastroenterology 09/20/23 Rocky Zepeda DO [address] [place] [address] 915245 Physician Gastroenterology 09/20/23 Philip Dumont MD [address] [place] [address] 634435 Physician Ophthalmology 09/22/23 documented as of this encounter
--- OUTSIDE RECORDS SUMMARY | 2023-10-28 16:42 | XMS_ITS | Encounter Summary ---
Author Name Unknown Organization [place] Address [address] [place] [address] Care Team Providers Care Instructor Knitting Name Role Phone Lita Oseguera Unavailable Unavailable Marija Edgar APRN SOUND TRUCK OPERATOR Primary Care Provider U mandaailMarija Callaway APRN SOUND TRUCK OPERATOR Unavailable Unavail able Keisha Dotson MD Unavailable [phone] Diana Desir [facility] Unavailable Rain Galaviz-C Unavailable Tavia Wyatt MD Unavailable Unavailable Erica Farrell APRN SOUND TRUCK OPERATOR Unavailable Rich Barrett MD Unavailable [phone] Neil Kent MD Unavailable Roney Story DPM Unavailable [phone] Diana Desir [facility] Unavailable [phone] Jelena David OD Unavailable [phone] Livan Sharif MD Unavailable Livan Sharif MD Unavailable Catherine Cm MD Unavailable + Valery Veronica PA-C Unavailable [phone] Catherine Cm MD Unavailable + Johnny Murillo MD Unavailable [phone] Brea Quinn CHARTERED WEALTH MANAGER SOUND TRUCK OPERATOR Unavailable [phone] Brea Quinn CHARTERED WEALTH MANAGER SOUND TRUCK OPERATOR Unavailable [phone] Jose Francisco Johnson MD Unavailable Livan Sharif MD Unavailable Catherine Cm MD Unavailable + Sydnie Martinez RN Unavailable Unavailable Alfonso Renteria MD Unavailable [phone] Esha Grimm PA-C Primary Care Provider Cheng Todd PA-C Unavailable Radha Lomeli CHARTERED WEALTH MANAGER SOUND TRUCK OPERATOR Unavailable [phone] Jelena David OD Unavailable Pao Joseph RN Unavailable Unavailable Esha Grimm PA-C Unavailable [phone] Valery Veronica PA-C Unavailable Rey Tay MD Unavailable Rocky Zepeda DO Unavailable Philip Dumont MD Unavailable [phone] Encounter Details Date Type Department Care Team (Late st Contact Info) Description 07/20/2022 [facility] Medical Advice [facility] [address] [facility] [address] [place] [address] Livan Sharif MD [address] [place] [address] Social History Tobacco Use Types Packs/Day Years [...] How often do you attend jain or voodoo serv ices? Never 09/22/2021 Do you belong [...] points; Administer PHQ-9 if positive 1 05/13/2022 [facility] of Occupat ional Health - Occupational Stress [...] in a intermediate (including now)? No 09/22/2021 Fowler Depression Scale Answer Date Recorded Fowler Depression Score 5 01/14/2021 Last EPDS Self [...] Coronavirus/COVID-19? No / Unsure 07/23/2022 6:45 AM FACILITIES MAINTENANCE ENGINEER documented as of this encounter Plan of Treatment Upcoming Encounters Date Type Department Care Team (Late st Contact Info) Description 11/01/2023 8:00 AM CDT Appointment [facility] Imaging [address] [place] [phone] Lauren Claudio PA-C [address] [place], [place] [phone] 11/03/2023 8:00 AM CDT Office Visit [address] [phone] Valery Veronica PA-C [address] [place] [address] 11/29/2023 8:00 AM CDT Office Visit [facility] [address] [place] [phone] Esha Grimm PA-C [address] [place] [phone] 12/19/2023 11:30 AM CDT Hospital Encounter [address] [phone] Rocky Zepeda DO 500 [place], [place] 186545 12/19/2023 11:30 AM CDT - 12/19/2023 12:00 PM CDT Surgery [address] 5th [place] [phone] Rocky Zepeda DO 500 [place] [address] Esophagoscopy, gastroscopy, duodenoscopy (EGD), combined 01/02/2024 8:00 AM CDT Office Visit [facility] [address] [place] [phone] Lauren Claudio PA-C [address] [place], [place] [phone] Kelli Perez MD [address] [place] [address] Scheduled Procedures Name Priority Associated Diagnoses [...] documented as of this encounter Care Teams Instructor Knitting Relationship Specialty Start Date End Date Marija Edgar APRN SOUND TRUCK OPERATOR PCP - General Nurse Practitioner 04/30/20 04/14/23 Esha Grimm PA-C [address] [place] [phone] PCP - General Family Medicine 05/04/23 Lita Oseguera Personal Advocate & Liaison (PAL) 02/28/20 03/27/23 Marija Edgar APRN SOUND TRUCK OPERATOR Assigned PCP 06/08/20 04/29/23 Keisha Dotson MD 909 [place] [address] Assigned Neuroscience Provider 06/04/20 04/01/23 Diana Desir [facility] [address] [place] [address] Pharmacist Pharmacist 04/17/21 Rain Galaviz PA-C [address] [place] [address] [address] [place] [address] Physician Line Ordering Clinician Dermatology 04/28/21 Tavia Wyatt MD [address] [place] [address] ENMA KNUTSON [address] Dermatology 07/14/21 Erica Farrell APRN SOUND TRUCK OPERATOR 6405 [facility] [place] [address] [place] [address] Nurse Practitioner Cardiovascular Disease 09/09/21 Rich Barrett MD 6 [facility] 9A [place] [address] Physician Ophthalmology 01/21/22 Neil Kent MD [address] [place] [address] Dermatology 02/24/22 Roney Story DPM [address] [facility] 300 [place] [address] Assigned Musculoskeletal Provider 03/20/22 08/13/22 Diana Desir, [facility]3 [place] [address] Assigned MTM Pharmacist 04/07/22 [place] [address] [place] [address] [place] [address] Assigned Surgical Provider 05/08/22 10/08/22 Livan Sharif MD [address], [facility] [address] [place] [address] Cardiovascular Disease 05/14/22 Livan Sharif MD [address], [facility] [address] [place] [address] Assigned Heart and Vascular Provider 06/12/22 07/23/22 Catherine Cm MD [address] [facility] [address] [place] [address] Cardiovascular Disease 07/21/22 Valery Veronica, PA-C [address] [place] [address] Physician Line Ordering Clinician Dermatology 07/21/22 Catherine Cm MD [address] [facility] [address] [place] [address] Assigned Heart and Vascular Provider 07/24/22 11/05/22 Johnny Murillo MD [address] 429454 Assigned Musculoskeletal Provider 08/14/22 10/08/22 Brea Quinn APRN SOUND TRUCK OPERATOR 500 [place] [address] Nurse Practitioner Dermatology 09/21/22 Brea Quinn APRN SOUND TRUCK OPERATOR 6401 [facility] [place] [address] Assigned Surgical Provider 10/09/22 [place] [address] [place] [facility] 300 [place] [address] Assigned Musculoskeletal Provider 10/09/22 Livan Sharif MD [address], [facility] [address] [place] [address] Assigned Heart and Vascular Provider 11/06/22 11/12/22 Catherine Cm MD [address] [place] 868225 Assigned Heart and Vascular Provider 11/13/22 05/27/23 Sydnie Martinez, VJ Personal Advocate & Liaison (PAL) Family Medicine 03/28/23 07/31/23 Alfonso Renteria MD 5775 [facility] 200 [place] [address] Assigned Neuroscience Provider 04/02/23 Cheng Todd PA-C [address] [place] [address] Assigned PCP 04/30/23 07/15/23 Radha Lomeli APRN SOUND TRUCK OPERATOR [address] [place] [address] Assigned Heart and Vascular Provider 05/28/23 Jelena David OD [address] [place] [place] [address] MD Ophthalmology 06/15/23 Pao Joseph, RN Personal Advocate & Liaison (PAL) Nurse 08/01/23 Esha Grimm PAUcheC [address] [place] [address]-931983 Assigned PCP 07/16/23 Valery Veronica PA-C 909 [place] [address] Physician Line Ordering Clinician Dermatology 09/19/23 Rey Tay MD [address] [place] [address] Gastroenterology 09/20/23 Rocky Zepeda DO [address] [place] [address] Physician Gastroenterology 09/20/23 Philip Dumont MD [address] [place] [address] Physician Ophthalmology 09/22/23 documented as of this encounter
--- OUTSIDE RECORDS SUMMARY | 2023-10-28 16:43 | XMS_ITS | Encounter Summary ---
Author Name Unknown Organization [place] Address [address] [place] [address] Care Team Providers Care Rn Oncology Name Role Phone Lita Oseguera Unavailable Unavailable Marija Edgar APRN WOOD ROOM SUPERVISOR Primary Care Provider U mandaailMarija Callaway APRN WOOD ROOM SUPERVISOR Unavailable Unavail able Keisha Dotson MD Unavailable [phone] Diana Desir [facility] Unavailable Rain Galaviz-C Unavailable Tavia Wyatt MD Unavailable Unavailable Erica Farrell APRN WOOD ROOM SUPERVISOR Unavailable Rich Barrett MD Unavailable [phone] Neil Kent MD Unavailable Roney Story DPM Unavailable [phone] Diana Desir [facility] Unavailable [phone] Jelena David OD Unavailable Livan Sharif MD Unavailable Livan Sharif MD Unavailable Catherine Cm MD Unavailable + Valery Veronica PA-C Unavailable [phone] Catherine Cm MD Unavailable + Johnny Murillo MD Unavailable [phone] Brea Quinn POWER HOUSE CONTROL ROOM OPERATOR WOOD ROOM SUPERVISOR Unavailable [phone] Brea Quinn POWER HOUSE CONTROL ROOM OPERATOR WOOD ROOM SUPERVISOR Unavailable [phone] Jose Francisco Johnson MD Unavailable Livan Sharif MD Unavailable Catherine Cm MD Unavailable + Sydnie Martinez RN Unavailable Unavailable Alfonso Renteria MD Unavailable [phone] Esha Grimm PA-C Primary Care Provider Cheng Todd PA-C Unavailable Radha Lomeli POWER HOUSE CONTROL ROOM OPERATOR WOOD ROOM SUPERVISOR Unavailable Jelena David OD Unavailable Pao Joseph RN Unavailable Unavailable Esha Grimm PA-C Unavailable [phone] Valery Veronica PA-C Unavailable Rey Tay MD Unavailable Rocky Zepeda DO Unavailable Philip Dumont MD Unavailable [phone] Reason for Visit * Reason Onset Date Comments Appointment 06/14/2022 Stress test and monitor on the same day Encounter Details Date Type Department Care Team (Late st Contact Info) Description 06/14/2022 [facility] 6405 [facility] [address] [place] [address] Livan Sharif MD [address] [facility] [address] [place] [address] Appointment (Stress test [...] How often do you attend mandaeism or adventism serv ices? Never 09/22/2021 Do you belong [...] points; Administer PHQ-9 if positive 1 05/13/2022 [facility] - Occupational Stress Questionnaire Answer Date [...] in a prison (including now)? No 09/22/2021 Mckinney Depression Scale Answer Date Recorded Mckinney Depression Score 5 01/14/2021 Last EPDS Self [...] to have Coronavirus/COVID-19? Yes 06/16/2022 12:32 PM MANAGEMENT TRAINEE documented as of this encounter Miscellaneous Notes * Telephone Encounter - Amalia Matute MA - 06/14/2022 9:30 AM CST [facility] Call Center Phone Message May [...] Not Applicable Thank you! [facility] GEMENT TRAINEE documented in this encounter Plan of Treatment Upcoming Encounters Date Type Department Care Team (Late st Contact Info) Description 11/01/2023 8:00 AM CDT Appointment [facility] Imaging [address] [place] [address] Lauren Claudio PA-C [address] [place], [place] [phone] 11/03/2023 8:00 AM CDT Office Visit [address] [phone] Valery Veronica PA-C 909 [place] [address] 11/29/2023 8:00 AM CDT Office Visit [facility] [address] [place] [phone] Esha Grimm PA-C [address] [place] [address]83 12/19/2023 11:30 AM CDT Hospital Encounter [facility] 909 [facility] 5th [place] [phone] Rocky Zepeda, DO 500 [place], [place] 462255 12/19/2023 11:30 AM CDT - 12/19/2023 12:00 PM CDT Surgery [facility] 909 [facility] 5th [place] [phone] Rocky Zepeda, DO 500 [place] [address] Esophagoscopy, gastroscopy, duodenoscopy (EGD), combined 01/02/2024 8:00 AM CDT Office Visit [facility] [address] [place] [phone] Lauren Claudio, ROVERTO [address] [place] [address] [phone] Kelli Perez MD [address] 575584 Scheduled Procedures Name Priority Associated Diagnoses Date/Ti id ESOPHAGOGASTRODUODENOSCOPY Eosinophilic esophagitis Esophageal dysphagia 12/19/2023 11:30 AM CDT documented as of this encounter Visit Diagnoses Not on filedocumented in this encounter Additional Health Concerns Infection Onset Date Last Indicated Resolved Time COVID-19 06/09/2022 06/09/2022 06/30/2022 11:4 1 PM MANAGEMENT TRAINEE Rule Out COVID-19 11/10/2022 11/10/2022 11/11/2022 12:17 PM CDT Rule Out COVID-19 03/07/2023 03/07/2023 03/07/2023 1:20 PM CDT Assessment Noted Time PHQ-9 Depression Total Score: 3 05/13/20 22 8:49 PM CDT documented as of this encounter Care Teams Rn Oncology Relationship Specialty Start Date End Date Marija Edgar APRN WOOD ROOM SUPERVISOR PCP - General Nurse Practitioner 04/30/20 04/14/23 Esha Grimm PA-C [address] [place] [address]719983 PCP - General Family Medicine 05/04/23 Lita Oseguera Personal Advocate & Liaison (PAL) 02/28/20 03/27/23 Marija Edgar APRN WOOD ROOM SUPERVISOR Assigned PCP 06/08/20 04/29/23 Keisha Dotson MD 909 [place] [address] Assigned Neuroscience Provider 06/04/20 04/01/23 Diana Desir, [facility] 3033 [place] [address] Pharmacist Pharmacist 04/17/21 Rain Galaviz PA-C [address] [place] [address] [place]NUTSON [address] Physician Associate Director Regulatory Affairs Dermatology 04/28/21 Tavia Wyatt MD [address] [place] [address] [place] [address] Dermatology 07/14/21 Erica Farrell APRN WOOD ROOM SUPERVISOR 6405 [facility] [address] [place] [address] Nurse Practitioner Cardiovascular Disease 09/09/21 Rich Barrett MD 516 [facility] 9A [place], [place] 6[address]115 Physician Ophthalmology 01/21/22 Neil Kent MD 500 [place] [address] Dermatology 02/24/22 Roney Story DPM [address] [employer] [facility] [address] [place], [place] [address] Assigned Musculoskeletal Provider 03/20/22 08/13/22 Diana Desir, [facility] [address] [place], [place] 944876 Assigned MTM Pharmacist 04/07/22 Jelena David OD 3305 [facility] [place] [address] Assigned Surgical Provider 05/08/22 10/08/22 Livan Sharif MD [address], [address] [place] [address] Cardiovascular Disease 05/14/22 Livan Sharif MD [address] [place] 639865 Assigned Heart and Vascular Provider 06/12/22 07/23/22 Catherine Cm MD [address] [place] 875825 Cardiovascular Disease 07/21/22 Valery Veronica, ROVERTO 9 [place] [address] Physician Associate Director Regulatory Affairs Dermatology 07/21/22 Catherine Cm MD [address] [place] [address] [place] [address] Assigned Heart and Vascular Provider 07/24/22 11/05/22 Johnny Murillo MD [address] [place] [address] 714684 Assigned Musculoskeletal Provider 08/14/22 10/08/22 Brea Quinn APRN WOOD ROOM SUPERVISOR [address] [place] [address] 401655 Nurse Practitioner Dermatology 09/21/22 Brea Quinn APRN WOOD ROOM SUPERVISOR [address] [place] [address] Assigned Surgical Provider 10/09/22 [place] [address] [place] [address] 540667 Assigned Musculoskeletal Provider 10/09/22 Livan Sharif MD [address] [place] [address] [place] 423465 Assigned Heart and Vascular Provider 11/06/22 11/12/22 Catherine Cm MD [address] [place] [address] [place] 168995 Assigned Heart and Vascular Provider 11/13/22 05/27/23 Sydnie Martinez, VJ Personal Advocate & Liaison (PAL) Family Medicine 03/28/23 07/31/23 Alfonso Renteria MD 5775 [facility] [address] 200 [place] [address] Assigned Neuroscience Provider 04/02/23 Cheng Todd PA-C [address] [place], [place] 80996124 Assigned PCP 04/30/23 07/15/23 Radha Lomeli APRN WOOD ROOM SUPERVISOR 6[address] [facility] [address] [place] [address] Assigned Heart and Vascular Provider 05/28/23 Jelena David OD 3305 [facility] [place] [address] Ophthalmology 06/15/23 Pao Joseph RN Personal Advocate & Liaison (PAL) Nurse 08/01/23 Esha Grimm PA-C [address] [place] [phone] Assigned PCP 07/16/23 Valery Veronica PA-C [address] [place] [address] 981565 Physician Associate Director Regulatory Affairs Dermatology 09/19/23 Rey Tay MD [address] [place] [address] 376655 Gastroenterology 09/20/23 Rocky Zepeda DO [address] [place] [address] 34687455 Physician Gastroenterology 09/20/23 Philip Dumont MD [address] [place] [address] 362155 Physician Ophthalmology 09/22/23 documented as of this encounter
--- OUTSIDE RECORDS SUMMARY | 2023-10-28 16:43 | XMS_ITS | Encounter Summary ---
Author Name Unknown Organization [place] Address [address] [place] [address] Care Team Providers Care Wad Compressor Operator Adjuster Name Role Phone Lita Oseguera Unavailable Unavailable Marija Edgar APRN LEAD MINER Primary Care Provider U mandaailMarija Callaway APRN LEAD MINER Unavailable Unavail able Keisha Dotson MD Unavailable [phone] Galo Burrell MD Unavailable Unavailable Diana Desir [facility] Unavailable [phone] Rain Galaviz PA-C Unavailable [phone] Summer Lara MD Unavailable [phone] Tavia Wyatt MD Unavailable Unavailable Johnny Murillo MD Unavailable Erica Farrell APRN LEAD MINER Unavailable Tavia Wyatt MD Unavailable Unavailable Diana Desir [facility] Unavailable [phone] Rich Barrett MD Unavailable [phone] Neil Kent MD Unavailable Roney Story DPM Unavailable [phone] Erica Farrell APRN LEAD MINER Unavailable Diana Desir [facility] Unavailable [phone] Jelena David OD Unavailable [phone] Galo Burrell MD Unavailable Unavailable Livan Sharif MD Unavailable + Livan Sharif MD Unavailable + Catherine Cm MD Unavailable + Valery Veronica PA-C Unavailable [phone] Catherine Cm MD Unavailable + Johnny Murillo MD Unavailable [phone] Brea Quinn [facility] LEAD MINER Unavailable [phone] Brea Quinn [facility] LEAD MINER Unavailable [phone] Jose Francisco Johnson MD Unavailable Livan Sharif MD Unavailable + Catherine Cm MD Unavailable + Sydnie Martinez RN Unavailable Unavailable Alfonso Renteria MD Unavailable [phone] Esha Grimm PA-C Primary Care Provider Cheng Todd PA-C Unavailable Radha Lomeli [facility] LEAD MINER Unavailable [phone] Jelena David OD Unavailable Pao Joseph RN Unavailable Unavailable Esha Grimm PA-C Unavailable [phone] Valery Veronica PA-C Unavailable [phone] Rey Tay MD Unavailable Rocky Zepeda DO Unavailable Philip Dumont MD Unavailable [phone] Encounter Details Date Type Department Care Team (Late st Contact Info) Description 03/09/2022 [facility] [address] [phone] Abby Dye Social History Tobacco Use Types [...] How often do you attend quaker or evangelical serv ices? Never 09/22/2021 Do you belong to any clubs o r organizations such as quaker groups, unions, fraternal or athletic groups, [...] Answer Date Recorded PHQ-2 Score 2 12/18/2021 [facility] - [...] a group home (including now)? No 09/22/2021 [place] Depression Scale Answer Date Recorded [place] Depression Score 5 01/14/2021 Last EPDS Self [...] Description 11/01/2023 8:[address] [facility] [address] [facility] [place] [address] Lauren Claudio PA-C [address] [place], [place] [phone] 11/03/2023 8:00 AM CDT Office Visit [address] [phone] Valery Veronica PA-C [address] [place] [address] 11/29/2023 8:00 AM CDT Office Visit [facility] [id number] [place] [phone] Esha Grimm PA-C [address] [place] [address] 12/19/2023 11:30 AM CDT Hospital Encounter [facility] [address] [facility] 5th [place] [phone] Rocky Zepeda DO [address] [place] [address] 12/19/2023 11:30 AM CDT - 12/19/2023 12:00 PM CDT Surgery [facility] 909 [facility] 5th [place] [phone] Rocky Zepeda, 500 [place] [address] Esophagoscopy, gastroscopy, duodenoscopy (EGD), combined 01/02/2024 8:00 AM CDT Office Visit [facility] [address] [place] [phone] Lauren Claudio PA-C [address] [place] [address] Kelli Perez MD [address] [place] [address] Scheduled Procedures Name Priority Associated Diagnoses Date/Ti wv ESOPHAGOGASTRODUODENOSCOPY Eosinophilic esophagitis Esophageal dysphagia 12/19/2023 11:30 AM CDT documented as of this encounter Visit Diagnoses Not on filedocumented in this encounter Additional Health Concerns Infection Onset Date Last Indicated Resolved Time Rule Out COVID-19 04/26/2022 04/26/2022 04/26/2022 6:47 AM CDT Rule Out COVID-19 05/17/2022 05/17/2022 05/17/2022 10:20 PM NET TECHNICAL ARCHITECT Rule Out COVID-19 06/09/2022 06/09/2022 06/09/2022 9:35 AM NET TECHNICAL ARCHITECT COVID-19 06/09/2022 06/09/2022 06/30/2022 11:4 1 PM NET TECHNICAL ARCHITECT Rule Out COVID-19 11/10/2022 11/10/2022 11/11/2022 12:17 PM CDT Rule Out COVID-19 03/07/2023 03/07/2023 03/07/2023 1:20 PM CDT Assessment Noted Time PHQ-9 Depression Total Score: 2 12/19/19 22 2:50 PM CDT documented as of this encounter Care Teams Wad Compressor Operator Adjuster Relationship Specialty Start Date End Date Marija Edgar APRN LEAD MINER PCP - General Nurse Practitioner 04/30/20 04/14/23 Esha Grimm PA-C [address] [place] [address] PCP - General Family Medicine 05/04/23 Lita Oseguera Personal Advocate & Liaison (PAL) 02/28/20 03/27/23 Marija Edgar APRN LEAD MINER Assigned PCP 06/08/20 04/29/23 Keisha Dotson MD 909 [place] [address] Assigned Neuroscience Provider 06/04/20 04/01/23 Galo Burrell MD Assigned Heart and Vascular Provider 10/05/20 04/02/22 Diana Desir, [facility] [address] [place] [address] Pharmacist Pharmacist 04/17/21 Rain Galaviz PA-C [address] [place] [address] [place] [address] Physician Radiological Equipment Specialist Dermatology 04/28/21 Summer Lara MD [address] [place] [address] 737194 Assigned OBGYN Provider 05/31/21 9/ 2 Tavia Wyatt MD [address] [place] [address] Dermatology 07/14/21 Johnny Murillo MD [address] [place] [address] Assigned Musculoskeletal Provider 08/30/21 03/17/22 Erica Farrell APRN LEAD MINER [address] [facility] [address] [place] [address] Nurse Practitioner Cardiovascular Disease 09/09/21 Tavia Wyatt MD Assigned Surgical Provider 11/29/21 05/07/22 Diana Desir [facility] [address] [place] [address] Assigned MTM Pharmacist 01/02/22 Rich Barrett MD 516 [facility] [address] [place] [address] Physician Ophthalmology 01/21/22 Neil Kent MD 500 [place] [address] Dermatology 02/24/22 Roney Story DPM [address] [facility] [address] [place], [place] [address] Assigned Musculoskeletal Provider 03/20/22 08/13/22 Erica Farrell APRN LEAD MINER 1700 [place] [address] Assigned Heart and Vascular Provider 04/03/22 04/16/22 Diana Desir [facility] 3033 [place] [address] Assigned MTM Pharmacist 04/07/22 Jelena David OD [address] [facility] [place] [address] Assigned Surgical Provider 05/08/22 10/08/22 Galo Burrell MD Assigned Heart and Vascular Provider 04/17/22 06/11/22 Livan Sharif MD [address] [place], [place] [address] Cardiovascular Disease 05/14/22 Livan Sharif MD [address] [place], [place] 9970[address] Assigned Heart and Vascular Provider 06/12/22 07/23/22 Catherine Cm MD [address] [place] 493865 Cardiovascular Disease 07/21/22 Valery Veronica, PAUcheC [address] [place], [place] 390625 Physician Radiological Equipment Specialist Dermatology 07/21/22 Catherine Cm MD [address] [place] 712795 Assigned Heart and Vascular Provider 07/24/22 11/05/22 Johnny Murillo MD [address] [place] [address] 638314 Assigned Musculoskeletal Provider 08/14/22 10/08/22 Brea Quinn APRN LEAD MINER 500 [place] [address] Nurse Practitioner Dermatology 09/21/22 Brea Quinn APRN LEAD MINER 6401 [place], [place] 026202 Assigned Surgical Provider 10/09/22 [place] [address] [place] [facility] 300 [place], [place] 951427 Assigned Musculoskeletal Provider 10/09/22 Livan Sharif MD [address] [facility] [address] [place] [address] Assigned Heart and Vascular Provider 11/06/22 11/12/22 Catherine Cm MD [address] [facility] [address] [place] [address] Assigned Heart and Vascular Provider 11/13/22 05/27/23 Sydnie Martinez, RN Personal Advocate & Liaison (PAL) Family Medicine 03/28/23 07/31/23 Alfonso Renteria MD [address] [facility] 200 [place] [address] Assigned Neuroscience Provider 04/02/23 Cheng Todd PA-C [address] [place] [address] Assigned PCP 04/30/23 07/15/23 Radha Lomeli APRN LEAD MINER [address] [place], [place] 89[address] Assigned Heart and Vascular Provider 05/28/23 Jelena David OD [address] [place] [address] MD Ophthalmology 06/15/23 Pao Joseph, VJ Personal Advocate & Liaison (PAL) Nurse 08/01/23 Esha Grimm PA-C [address] [place] [phone] Assigned PCP 07/16/23 Valery Veronica PAUcheC [address] [place], [place] 819[address] Physician Radiological Equipment Specialist Dermatology 09/19/23 Rey Tay MD [address] [place] [address] 945785 Gastroenterology 09/20/23 Rocky Zepeda DO [address] [place] [address] 564805 Physician Gastroenterology 09/20/23 Philip Dumont MD [address] [place] [address] [id number] Physician Ophthalmology 09/22/23 documented as of this encounter
--- OUTSIDE RECORDS SUMMARY | 2023-10-28 16:43 | XMS_ITS | Encounter Summary ---
Author Name Unknown Organization [place] Address [address] [place] [address] Care Team Providers Care Nca Certified Concierge Name Role Phone Lita Oseguera Unavailable Unavailable Marija Edgar APRN SHAMPOO PERSON Primary Care Provider U mandaailMarija Callaway APRN SHAMPOO PERSON Unavailable Unavail able Keisha Dotson MD Unavailable [phone] Diana Desir [facility] Unavailable Rain Galaviz-C Unavailable Tavia Wyatt MD Unavailable Unavailable Erica Farrell APRN SHAMPOO PERSON Unavailable Rich Barrett MD Unavailable [phone] Neil Kent MD Unavailable Roney Story DPM Unavailable [phone] Diana Desir [facility] Unavailable [phone] Jelena David OD Unavailable Livan Sharif MD Unavailable Livan Sharif MD Unavailable Catherine Cm MD Unavailable + Valery Veronica PA-C Unavailable [phone] Catherine Cm MD Unavailable + Johnny Murillo MD Unavailable [phone] Brea Quinn [employer] SHAMPOO PERSON Unavailable [phone] Brea Quinn [employer] SHAMPOO PERSON Unavailable Jose Francisco Johnson MD Unavailable Livan Sharif MD Unavailable Catherine Cm MD Unavailable + Sydnie Martinez RN Unavailable Unavailable Alfonso Renteria MD Unavailable Esha Grimm PA-C Primary Care Provider Cheng Todd PA-C Unavailable Radha Lomeli [employer] SHAMPOO PERSON Unavailable [phone] Jelena David OD Unavailable Pao Joseph RN Unavailable Unavailable Esha Grimm PA-C Unavailable [phone] Valery Veronica PA-C Unavailable Rey Tay MD Unavailable Rocky Zepeda DO Unavailable Philip Dumont MD Unavailable [phone] Encounter Details Date Type Department Care Team (Late st Contact Info) Description 07/02/2022 [facility] Medical Advice [address] [address] Diana Desir, [facility] 8773 [place] [address] Social History Tobacco Use Types [...] often do you attend roman catholic or congregational serv ices? Never 09/22/2021 Do [...] points; Administer PHQ-9 if positive 1 05/13/2022 [facility]at ional [facility] [...] in a detention (including now)? No 09/22/2021 [place] Depression Scale Answer Date Recorded [place] Depression Score 5 01/14/2021 Last EPDS Self [...] Coronavirus/COVID-19? No / Unsure 06/25/2022 8:44 AM BOTTOM PAINTER documented as of this encounter Plan of Treatment Upcoming Encounters Date Type Department Care Team (Late st Contact Info) Description 11/01/2023 8:[address] [facility] Imaging [address] [place] [address] Lauren Claudio PA-C [address] [place], [place] [address] 11/03/2023 8:00 AM CDT Office Visit [address] [phone] Valery Veronica PA-C [address] [place] [address] 11/29/2023 8:00 AM CDT Office Visit [facility] [address] [place] [phone] Esha Grimm PA-C [address] [place] [phone] 12/19/2023 11:30 AM CDT Hospital Encounter [address] [phone] Rocky Zepeda DO 500 [place], [place] [address] 12/19/2023 11:30 AM CDT - 12/19/2023 12:00 PM CDT Surgery [address] [phone] Rocky Zepeda DO 500 [place] [address] Esophagoscopy, gastroscopy, duodenoscopy (EGD), combined 01/02/2024 8:00 AM CDT Office Visit [facility] [address] [place] [phone] Lauren Claudio PA-C [address] [place], [place] [phone] Kelli Perez MD [address] [place] [address] 106 [place] [address] Scheduled Procedures Name Priority Associated [...] documented as of this encounter Care Teams Nca Certified Concierge Relationship Specialty Start Date End Date Marija Edgar APRN SHAMPOO PERSON PCP - General Nurse Practitioner 04/30/20 04/14/23 Esha Grimm PA-C [address] [place] [address] PCP - General Family Medicine 05/04/23 Lita Oseguera Personal Advocate & Liaison (PAL) 02/28/20 03/27/23 Marija Edgar APRN SHAMPOO PERSON Assigned PCP 06/08/20 04/29/23 Keisha Dotson MD 909 [place] [address] Assigned Neuroscience Provider 06/04/20 04/01/23 Diana Desir [facility] [address] [place] [address] Pharmacist Pharmacist 04/17/21 Rain Galaviz PA-C [address] [place] [address] [address] [place] [address] Physician Dispatch Clerk Dermatology 04/28/21 Tavia Wyatt MD [address] [place] [address] [address] [facility] [place] [address] Dermatology 07/14/21 Erica Farrell APRN SHAMPOO PERSON [address] [facility] [address] [place] [address] Nurse Practitioner Cardiovascular Disease 09/09/21 Rich Barrett MD 516 [facility] 9A [place] [address] Physician Ophthalmology 01/21/22 Neil Kent MD [address] [place] [address] Dermatology 02/24/22 Roney Story DPM [address] [facility] 300 [place] [address] Assigned Musculoskeletal Provider 03/20/22 08/13/22 Diana Desir, [facility] [address] [place] [address] Assigned MTM Pharmacist 04/07/22 Jelena David OD [address] [place] [address] Assigned Surgical Provider 05/08/22 10/08/22 Livan Sharif MD [address], [facility] [address] [place] [address] Cardiovascular Disease 05/14/22 Livan Sharif MD [address], [facility] [address] [place] [address] Assigned Heart and Vascular Provider 06/12/22 07/23/22 Catherine Cm MD [address] [facility] [place] [address] Cardiovascular Disease 07/21/22 Valery Veronica, PAUcheC 909 [place] [address] Physician Dispatch Clerk Dermatology 07/21/22 Catherine Cm MD [address] [facility] [address] [place] [address] Assigned Heart and Vascular Provider 07/24/22 11/05/22 Johnny Murillo MD [facility] [address] [address] Assigned Musculoskeletal Provider 08/14/22 10/08/22 Brea Quinn APRN SHAMPOO PERSON [address] [place] [address] Nurse Practitioner Dermatology 09/21/22 Brea Quinn APRN SHAMPOO PERSON 6401 [facility] [place] [address] Assigned Surgical Provider 10/09/22 [place] [address] [address] [place] [address] Assigned Musculoskeletal Provider 10/09/22 Livan Sharif MD [address], [facility] [address] [place] [address] Assigned Heart and Vascular Provider 11/06/22 11/12/22 Catherine Cm MD [address] [place] [address] Assigned Heart and Vascular Provider 11/13/22 05/27/23 Sydnie Martinez RN Personal Advocate & Liaison (PAL) Family Medicine 03/28/23 07/31/23 Alfonso Renteria MD 5775 [facility] 200 [place] [address] Assigned Neuroscience Provider 04/02/23 Cheng Todd PA-C [address] [place] [address] Assigned PCP 04/30/23 07/15/23 Radha Lomeli APRN SHAMPOO PERSON [address] [place] [address] Assigned Heart and Vascular Provider 05/28/23 Jelena David OD [address] [place] [address] Ophthalmology 06/15/23 Pao Joseph, RN Personal Advocate & Liaison (PAL) Nurse 08/01/23 Esha Grimm PA-C [address] [place] [address] Assigned PCP 07/16/23 Valery Veronica PA-C 909 [place] [address] Physician Dispatch Clerk Dermatology 09/19/23 Rey Tay MD [address] [place] [address] Gastroenterology 09/20/23 Rocky Zepeda DO [address] [place] [address] Physician Gastroenterology 09/20/23 Philip Dumont MD [address] [place] [address] Physician Ophthalmology 09/22/23 documented as of this encounter
--- OUTSIDE RECORDS SUMMARY | 2023-10-28 16:43 | XMS_ITS | Encounter Summary ---
Author Name Unknown Organization [facility] Address [address] [place] [address] Care Team Providers Care After School Caregiver Name Role Phone Lita Oseguera Unavailable Unavailable Marija Edgar APRN ELECT EQUIP MAINT ENG Primary Care Provider U mandaailMarija Callaway APRN ELECT EQUIP MAINT ENG Unavailable Unavail able Keisha Dotson MD Unavailable [phone] Galo Burrell MD Unavailable Unavailable Diana Desir [facility] Unavailable [phone] Rain Galaviz PA-C Unavailable Summer Lara MD Unavailable [phone] Tavia Wyatt MD Unavailable Unavailable Johnny Murillo MD Unavailable [phone] Erica Farrell APRN ELECT EQUIP MAINT ENG Unavailable Tavia Wyatt MD Unavailable Unavailable Diana Desir [facility] Unavailable [phone] Rich Barrett MD Unavailable [phone] Neil Kent MD Unavailable Roney Story DPM Unavailable [phone] Erica Farrell APRN ELECT EQUIP MAINT ENG Unavailable Diana Desir [facility] Unavailable [phone] Jelena David OD Unavailable Galo Burrell MD Unavailable Unavailable Livan Sharif MD Unavailable + Livan Sharif MD Unavailable + Catherine Cm MD Unavailable + Valery Veronica PA-C Unavailable [phone] Catherine Cm MD Unavailable + Johnny Murillo MD Unavailable [phone] Brea Quinn THERAPEUTIC CONSULTANT ELECT EQUIP MAINT ENG Unavailable [phone] Brea Quinn THERAPEUTIC CONSULTANT ELECT EQUIP MAINT ENG Unavailable [phone] Jose Francisco Johnson MD Unavailable Livan Sharif MD Unavailable + Catherine Cm MD Unavailable + Sydnie Martinez RN Unavailable Unavailable Alfonso Renteria MD Unavailable Esha Grmim PA-C Primary Care Provider Cheng Todd PA-C Unavailable Radha Lomeli THERAPEUTIC CONSULTANT ELECT EQUIP MAINT ENG Unavailable [phone] Jelena David OD Unavailable [phone] Pao Joseph RN Unavailable Unavailable Esha Grimm PA-C Unavailable [phone] Valery Veronica PA-C Unavailable [phone] Rey Tay MD Unavailable Rocky Zepeda DO Unavailable Philip Dumont MD Unavailable [phone] Encounter Details Date Type Department Care Team (Late st Contact Info) Description 01/22/2022 [facility] [address] [address] Diana Desir, [facility] [address] [place] [address] Social History Tobacco Use Types Packs/Day Years [...] How often do you attend adventism or taoist serv ices? Never 09/22/2021 Do you belong [...] Answer Date Recorded PHQ-2 Score 2 12/18/2021 [facility] - [facility]ational Stress Questionnaire Answer Date [...] in a alf (including now)? No 09/22/2021 [place] Depression Scale Answer Date Recorded [place] Depression Score 5 01/14/2021 Last EPDS Self [...] Info) Description 11/01/2023 8:00 AM CDT Appointment [facility] [address] [address] Lauren Claudio PA-C [address] [place], [place] [id number] 11/03/2023 8:00 AM CDT Office Visit [address] [phone] Valery Veronica PA-C [address] [place] [address] 11/29/2023 8:00 AM CDT Office Visit [facility] [address] [place] [phone] Esha Grimm PA-C [address] [place] [address] 12/19/2023 11:30 AM CDT Hospital Encounter [facility] [address] [facility] 5th [place] [phone] Rocky Zepeda, [address] [place], [place] [address] 12/19/2023 11:30 AM CDT - 12/19/2023 12:00 PM CDT Surgery [facility] [address] [facility] [address] 5th [place] [phone] Rocky Zepeda, DO [address] [place], [place] [address] Esophagoscopy, gastroscopy, duodenoscopy (EGD), combined 01/02/2024 8:00 AM CDT Office Visit [facility] [address] [place] [address] Lauren Claudio PA-C [id number] [place] [address] Kelli Perez MD [address] [place] [address] Scheduled Procedures Name Priority Associated Diagnoses [...] COVID-19 05/17/2022 05/17/2022 05/17/2022 10:20 PM SALES EXEC Rule Out COVID-19 06/09/2022 06/09/2022 06/09/2022 9:35 AM SALES EXEC COVID-19 06/09/2022 06/09/2022 06/30/2022 11:4 1 PM SALES EXEC Rule Out COVID-19 11/10/2022 11/10/2022 11/11/2022 12:17 PM CDT Rule Out COVID-19 03/07/2023 03/07/2023 03/07/2023 1:20 PM CDT Assessment Noted Time PHQ-9 Depression Total Score: 2 12/19/19 2:50 PM CDT documented as of this encounter Care Teams After School Caregiver Relationship Specialty Start Date End Date Marija Edgar APRN ELECT EQUIP MAINT ENG PCP - General Nurse Practitioner 04/30/20 04/14/23 Esha Grimm PA-C [address] [place] [address] PCP - General Family Medicine 05/04/23 Lita Oseguera Personal Advocate & Liaison (PAL) 02/28/20 03/27/23 Marija Edgar APRN ELECT EQUIP MAINT ENG Assigned PCP 06/08/20 04/29/23 Keisha Dotson MD 909 [place] [address] Assigned Neuroscience Provider 06/04/20 04/01/23 Galo Burrell MD Assigned Heart and Vascular Provider 10/05/20 04/02/22 Diana Desir, [facility] [address] [place] [address] Pharmacist Pharmacist 04/17/21 Rain Galaviz PA-C [address] [place] [address] [address] [place] [address] Physician Sports Doctor Dermatology 04/28/21 Summer Lara MD [address] [place] [address] Assigned OBGYN Provider 05/31/21 2 Tavia Wyatt MD [address] [address] Dermatology 07/14/21 Johnny Murillo MD [address] [place] [address] Assigned Musculoskeletal Provider 08/30/21 03/17/22 Erica Farrell APRN ELECT EQUIP MAINT ENG [address] [facility] [address] [place] [address] Nurse Practitioner Cardiovascular Disease 09/09/21 Tavia Wyatt MD Assigned Surgical Provider 11/29/21 05/07/22 [facility] [address] [place] [address] Assigned MTM Pharmacist 01/02/22 Rich Barrett MD [address] [facility] [address] [place] [address] Physician Ophthalmology 01/21/22 Neil Kent MD 500 [place] [address] Dermatology 02/24/22 Roney Story DPM [address] [facility] [address] [place], [place] 741567 Assigned Musculoskeletal Provider 03/20/22 08/13/22 Erica Farrell APRN ELECT EQUIP MAINT ENG [address] [place] [address] Assigned Heart and Vascular Provider 04/03/22 04/16/22 Diana Desir, [facility] [address] [place] [address] Assigned [place] Pharmacist 04/07/22 Jelena David OD [address] [facility] [place] [address] Assigned Surgical Provider 05/08/22 10/08/22 Galo Burrell MD Assigned Heart and Vascular Provider 04/17/22 06/11/22 Livan Sharif MD [address] [place] 6784[address] Cardiovascular Disease 05/14/22 Livan Sharif MD [address] [place] [address]75 Assigned Heart and Vascular Provider 06/12/22 07/23/22 Catherine Cm MD [address] [place] [address] Cardiovascular Disease 07/21/22 Valery Veronica PA-C [address] [place], [place] [address] Physician Sports Doctor Dermatology 07/21/22 Catherine Cm MD [address] [place] [address] Assigned Heart and Vascular Provider 07/24/22 11/05/22 Johnny Murillo MD [address] [place], [place] 5[address]294 Assigned Musculoskeletal Provider 08/14/22 10/08/22 Brea Quinn APRN ELECT EQUIP MAINT ENG 500 [place], [place] 320865 Nurse Practitioner Dermatology 09/21/22 Brea Quinn APRN ELECT EQUIP MAINT ENG 64[address] [place], [place] 154212 Assigned Surgical Provider 10/09/22 [place] [address] [facility] [address] [place], [place] 7733[address] Assigned Musculoskeletal Provider 10/09/22 Livan Sharif MD [address] [facility] [address] [place] [address] Assigned Heart and Vascular Provider 11/06/22 11/12/22 Catherine Cm MD [address] [facility] [address] [place], [place] [address] Assigned Heart and Vascular Provider 11/13/22 05/27/23 Sydnie Martinez RN Personal Advocate & Liaison (PAL) Family Medicine 03/28/23 07/31/23 Alfonso Renteria MD [address] [facility] [address] [place], [place] 399866 Assigned Neuroscience Provider 04/02/23 Cheng Todd PA-C [address] [place] [address] Assigned PCP 04/30/23 07/15/23 Radha LomeliARLENE ELECT EQUIP MAINT ENG [address] [place] [address] Assigned Heart and Vascular Provider 05/28/23 Jelena David OD [address] [facility] [place] [address] Ophthalmology 06/15/23 Pao Joseph, VJ Personal Advocate & Liaison (PAL) Nurse 08/01/23 Esha Grimm PA-C [address] [place] [address] Assigned PCP 07/16/23 Valery Veronica PA-C [address] [place], [place] 312425 Physician Sports Doctor Dermatology 09/19/23 Rey Tay MD 9 [place], [place] 0[address] Gastroenterology 09/20/23 Rocky Zepeda DO [address] [place] [address] Physician Gastroenterology 09/20/23 Philip Dumont MD [address] [place] [address] Physician Ophthalmology 09/22/23 documented as of this encounter
--- OUTSIDE RECORDS SUMMARY | 2023-10-28 16:43 | XMS_ITS | Encounter Summary ---
Author Name Unknown Organization [facility] Address [address] [place] [address] Care Team Providers Care Laboratory Animal Care Veterinarian Name Role Phone Lita Oseguera Unavailable Unavailable Marija Edgar APRN MAGNETIC RESONANCE TECHNOLOGIST Primary Care Provider U mandaailMarija Callaway APRN MAGNETIC RESONANCE TECHNOLOGIST Unavailable Unavail able Keisha Dotson MD Unavailable [phone] Diana Desir [facility] Unavailable [phone] Rain Galaviz-C Unavailable [phone] Tavia Wyatt MD Unavailable Unavailable Erica Farrell APRN MAGNETIC RESONANCE TECHNOLOGIST Unavailable Tavia Wyatt MD Unavailable Unavailable Rich Barrett MD Unavailable [phone] Neil Kent MD Unavailable Roney Story DPM Unavailable [phone] Diana Desir [facility] Unavailable [phone] Jelena David OD Unavailable Galo Burrell MD Unavailable Unavailable Livan Sharif MD Unavailable Livan Sharif MD Unavailable Catherine Cm MD Unavailable + Valery Veronica PA-C Unavailable Catherine Cm MD Unavailable + Johnny Murillo MD Unavailable [phone] Brea Quinn INFORMATION SYSTEMS OPERATOR MAGNETIC RESONANCE TECHNOLOGIST Unavailable [phone] Brea Quinn INFORMATION SYSTEMS OPERATOR MAGNETIC RESONANCE TECHNOLOGIST Unavailable Jose Francisco Johnson MD Unavailable Livan Sharif MD Unavailable Catherine Cm MD Unavailable + Sydnie Martinez RN Unavailable Unavailable Alfonso Renteria MD Unavailable [phone] Esha Grimm PA-C Primary Care Provider Cheng Todd PA-C Unavailable [phone] Radha Lomeli INFORMATION SYSTEMS OPERATOR MAGNETIC RESONANCE TECHNOLOGIST Unavailable Jelena David OD Unavailable Pao Joseph RN Unavailable Unavailable Esha Grimm PA-C Unavailable [phone] Valery Veronica PA-C Unavailable [phone] Rey Tay MD Unavailable Rocky Zepeda DO Unavailable Philip Dumont MD Unavailable [phone] Encounter Details Date Type Department Care Team (Late st Contact Info) Description 05/01/2022 [facility] Advice [address] [address] Diana Desir, [facility] [address] [place], [place] [address] Social History Tobacco Use Types Packs/Day Years [...] How often do you attend uatsdin or mormon serv ices? Never 09/22/2021 Do [...] Answer Date Recorded PHQ-2 Score 2 12/18/2021 [facility] - [...] slept in a mcfp (including now)? No 09/22/2021 [place] Depression Scale Answer Date Recorded [place] Depression Score 5 01/14/2021 Last EPDS Self [...] [facility] [address] [place] [address] Lauren Claudio PA-C [address] [place] [address] 11/03/2023 8:00 AM CDT Office Visit [address] [phone] Valery Veronica PA-C [address] [place] [address] 11/29/2023 8:00 AM CDT Office Visit [facility] [address] [place] [phone] Esha Grimm PA-C [address] [place] [phone] 12/19/2023 11:30 AM CDT Hospital Encounter [address] [phone] Rocky Zepeda DO 500 [place], [place] [address] 12/19/2023 11:30 AM CDT - 12/19/2023 12:00 PM CDT Surgery [facility] [address] [place] [phone] Rocky Zepeda DO 500 [place] [address] Esophagoscopy, gastroscopy, duodenoscopy (EGD), combined 01/02/2024 8:00 AM CDT Office Visit [facility] [address] [place] [phone] Lauren Claudio PA-C [address] [place], [place] [phone] Kelli Perez MD [address] [place] [address] Scheduled Procedures Name Priority Associated Diagnoses Date/Ti az ESOPHAGOGASTRODUODENOSCOPY Eosinophilic esophagitis Esophageal dysphagia 12/19/2023 11:30 AM CDT documented as of this encounter Visit Diagnoses Not on filedocumented in this encounter Additional Health Concerns Infection Onset Date Last Indicated Resolved Time Rule Out COVID-19 05/17/2022 05/17/2022 05/17/2022 10:20 PM NARCOTICS AGENT Rule Out COVID-19 06/09/2022 06/09/2022 06/09/2022 9:35 AM NARCOTICS AGENT COVID-19 06/09/2022 06/09/2022 06/30/2022 11:4 1 PM NARCOTICS AGENT Rule Out COVID-19 11/10/2022 11/10/2022 11/11/2022 12:17 PM CDT Rule Out COVID-19 03/07/2023 03/07/2023 03/07/2023 1:20 PM CDT Assessment Noted Time PHQ-9 Depression Total Score: 2 12/19/19 22 2:50 PM CDT documented as of this encounter Care Teams Laboratory Animal Care Veterinarian Relationship Specialty Start Date End Date Marija Edgar APRN MAGNETIC RESONANCE TECHNOLOGIST PCP - General Nurse Practitioner 04/30/20 04/14/23 Esha Grimm PA-C [address] [place] [phone] PCP - General Family Medicine 05/04/23 Lita Oseguera Personal Advocate & Liaison (PAL) 02/28/20 03/27/23 Marija Edgar APRN MAGNETIC RESONANCE TECHNOLOGIST Assigned PCP 06/08/20 04/29/23 Keisha Dotson MD 909 [place] [address] Assigned Neuroscience Provider 06/04/20 04/01/23 [facility] [address] [place] [address] Pharmacist Pharmacist 04/17/21 Rain Galaviz PA-C [address] [place] [address] [address] [place] [address] Physician Bead Filler Dermatology 04/28/21 Tavia Wyatt MD [address] [place] [address] DR [facility] [address] Dermatology 07/14/21 Erica Farrell APRN MAGNETIC RESONANCE TECHNOLOGIST [address] [place] [address] Nurse Practitioner Cardiovascular Disease 09/09/21 Tavia Wyatt MD Assigned Surgical Provider 11/29/21 05/07/22 Rich Barrett MD [address] [place] [address] 019885 Physician Ophthalmology 01/21/22 Neil Kent MD [address] [place] [address] 841685 Dermatology 02/24/22 Roney Story DPM [address] [facility] [address] [place], [place] [address] Assigned Musculoskeletal Provider 03/20/22 08/13/22 Diana Desir, [facility] [address] [facility] [place], [place] [address] Assigned MTM Pharmacist 04/07/22 Jelena David OD [address] [facility] [place] [address] Assigned Surgical Provider 05/08/22 10/08/22 Galo Burrell MD Assigned Heart and Vascular Provider 04/17/22 06/11/22 Livan Sharif MD [address] [place] [address] Cardiovascular Disease 05/14/22 Livan Sharif MD [address] [facility] [place] [place] [address] Assigned Heart and Vascular Provider 06/12/22 07/23/22 Catherine Cm MD [address] [place] [address] Cardiovascular Disease 07/21/22 Valery Veronica, PA-C 909 [place] [address] Physician Bead Filler Dermatology 07/21/22 Catherine Cm MD [address] [facility] [address] [place] [address] Assigned Heart and Vascular Provider 07/24/22 11/05/22 Johnny Murillo MD [address] [address] Assigned Musculoskeletal Provider 08/14/22 10/08/22 Brea Quinn APRN MAGNETIC RESONANCE TECHNOLOGIST 500 [place], [place] [address]18[address] Nurse Practitioner Dermatology 09/21/22 Brea Quinn APRN MAGNETIC RESONANCE TECHNOLOGIST 6401 [facility] [place] [address] Assigned Surgical Provider 10/09/22 [place] [address] [place] [address] 975387 Assigned Musculoskeletal Provider 10/09/22 Livan Sharif MD [address] [facility] [address] [place] [address] Assigned Heart and Vascular Provider 11/06/22 11/12/22 Catherine Cm MD [address] [facility] [address] [place] [address] Assigned Heart and Vascular Provider 11/13/22 05/27/23 Sydnie Martinez RN Personal Advocate & Liaison (PAL) Family Medicine 03/28/23 07/31/23 Alfonso Renteria MD [address] [place] [address] Assigned Neuroscience Provider 04/02/23 Cheng Todd PA-C [address] [place] [address] Assigned PCP 04/30/23 07/15/23 Radha Lomeli APRN MAGNETIC RESONANCE TECHNOLOGIST [address] [place], [place] 9[address] Assigned Heart and Vascular Provider 05/28/23 Jelena David OD [address] [facility] [place] [address] Ophthalmology 06/15/23 Pao Joseph, VJ Personal Advocate & Liaison (PAL) Nurse 08/01/23 Esha Grimm PA-C [address] [place] [phone] Assigned PCP 07/16/23 Valery Veronica PA-C [address] [place] [address] 458825 Physician Bead Filler Dermatology 09/19/23 Rey Tay MD [address] [place] [address]955 Gastroenterology 09/20/23 Rocky Zepeda DO [address] [place] [address] Physician Gastroenterology 09/20/23 Philip Dumont MD [facility] [place] [address] Physician Ophthalmology 09/22/23 documented as of this encounter
--- OUTSIDE RECORDS SUMMARY | 2023-10-28 16:43 | XMS_ITS | Encounter Summary ---
Author Name Unknown Organization [facility] Address [address] [place] [address] Care Team Providers Care Relations Liaison Name Role Phone Lita Oseguera Unavailable Unavailable Marija Edgar APRN PATTERN WORKER Primary Care Provider U mandaailMarija Calalway APRN PATTERN WORKER Unavailable Unavail able Keisha Dotson MD Unavailable [phone] Diana Desir [facility] Unavailable [phone] Rain Galaviz-C Unavailable [phone] Tavia Wyatt MD Unavailable Unavailable Erica Farrell APRN PATTERN WORKER Unavailable Rich Barrett MD Unavailable [phone] Neil Kent MD Unavailable Roney Story DPM Unavailable [phone] Diana Desir [facility] Unavailable [phone] Jelena David OD Unavailable [phone] Livan Sharif MD Unavailable Livan Sharif MD Unavailable Catherine Cm MD Unavailable + Valery Veronica PA-C Unavailable [phone] Catherine Cm MD Unavailable + Johnny Murillo MD Unavailable [phone] Brea Quinn BILINGUAL SALES CONSULTANT PATTERN WORKER Unavailable [phone] Brea Quinn BILINGUAL SALES CONSULTANT PATTERN WORKER Unavailable Jose Francisco Johnson MD Unavailable Livan Sharif MD Unavailable Catherine Cm MD Unavailable + Sydnie Martinez RN Unavailable Unavailable Alfonso Renteria MD Unavailable [phone] Esha Grimm PA-C Primary Care Provider Cheng Todd PA-C Unavailable Radha Lomeli BILINGUAL SALES CONSULTANT PATTERN WORKER Unavailable [phone] Jelena David OD Unavailable [phone] Pao Joseph RN Unavailable Unavailable Esha Grimm PA-C Unavailable [phone] Valery Veronica PA-C Unavailable [phone] Rey Tay MD Unavailable Rocky Zepeda DO Unavailable Philip Dumont MD Unavailable [phone] Encounter Details Date Type Department Care Team (Late st Contact Info) Description 07/07/2022 [facility] Heart [facility] [address] [facility] [address] [place] [address] Livan Sharif MD [address] [place] [address] Social History Tobacco Use Types Packs/Day Years [...] How often do you attend spiritism or caodaism serv ices? Never 09/22/2021 Do you belong [...] points; Administer PHQ-9 if positive 1 05/13/2022 [facility] of Occupat [...] in a correction (including now)? No 09/22/2021 [place] Depression Scale Answer Date Recorded [place] Depression Score 5 01/14/2021 Last EPDS Self [...] Coronavirus/COVID-19? No / Unsure 06/25/2022 8:44 AM LEATHER COLORER documented as of this encounter Plan of Treatment Upcoming Encounters Date Type Department Care Team (Late st Contact Info) Description 11/01/2023 8:00 AM CDT Appointment [facility] Imaging [address] [place] [phone] Lauren Claudio PA-C [address] [place], [place] [phone] 11/03/2023 8:00 AM CDT Office Visit [address] [phone] Valery Veronica PA-C [address] [place] [address] 11/29/2023 8:00 AM CDT Office Visit [facility] [address] [place] [phone] Esha Grimm PA-C [address] [place] [phone] 12/19/2023 11:30 AM CDT Hospital Encounter [address] [phone] Rocky Zepeda DO [address] [place], [place] [address] 12/19/2023 11:30 AM CDT - 12/19/2023 12:00 PM CDT Surgery [address]th [place] [phone] Rocky Zepeda DO [address] [place] [address] Esophagoscopy, gastroscopy, duodenoscopy (EGD), combined 01/02/2024 8:00 AM CDT Office Visit [facility] [address] [place] [phone] Lauren Claudio PA-C [address] [place], [place] [phone] Kelli Perez MD [address] [place] [address] Scheduled Procedures Name Priority Associated Diagnoses [...] documented as of this encounter Care Teams Relations Liaison Relationship Specialty Start Date End Date Marija Edgar APRN PATTERN WORKER PCP - General Nurse Practitioner 04/30/20 04/14/23 Esha Grimm PA-C [address] [place] [address] PCP - General Family Medicine 05/04/23 Lita Oseguera Personal Advocate & Liaison (PAL) 02/28/20 03/27/23 Marija Edgar APRN PATTERN WORKER Assigned PCP 06/08/20 04/29/23 Keisha Dotson MD 909 [place] [address] Assigned Neuroscience Provider 06/04/20 04/01/23 Diana Desir [facility] [address] [place] [address] Pharmacist Pharmacist 04/17/21 Rain Galaviz PA-C [address] [place] [address] [address] [place] [address] Physician Diesel Locomotive Firer Dermatology 04/28/21 Tavia Wyatt MD [address] [place] [address] [place]MA [place] [address] Dermatology 07/14/21 Erica Farrell APRN PATTERN WORKER [address] [facility] [address] [place] [address] Nurse Practitioner Cardiovascular Disease 09/09/21 Rich Barrett MD 6 [facility] 9A [place] [address] Physician Ophthalmology 01/21/22 Neil Kent MD [address] [place] [address] Dermatology 02/24/22 Roney Story DPM [address] [facility] 300 [place] [address] Assigned Musculoskeletal Provider 03/20/22 08/13/22 Diana Desir, [facility] [place] [address] Assigned MTM Pharmacist 04/07/22 [place] [address] [place] [address] [place] [address] Assigned Surgical Provider 05/08/22 10/08/22 Livan Sharif MD [address], [facility] [address] [place] [address] Cardiovascular Disease 05/14/22 Livan Sharif MD [address], [facility] [address] [place] [address] Assigned Heart and Vascular Provider 06/12/22 07/23/22 Catherine Cm MD [address] [facility] [address] [place] [address] Cardiovascular Disease 07/21/22 Valery Veronica, PA-C [address] [place] [address] Physician Diesel Locomotive Firer Dermatology 07/21/22 Catherine Cm MD [address] [facility] [address] [place] [address] Assigned Heart and Vascular Provider 07/24/22 11/05/22 Johnny Murillo MD [address] 113[address] Assigned Musculoskeletal Provider 08/14/22 10/08/22 Brea Quinn APRN PATTERN WORKER [address] [place] [address] Nurse Practitioner Dermatology 09/21/22 Brea Quinn APRN PATTERN WORKER [address] [facility] [place] [address] Assigned Surgical Provider 10/09/22 [place] [address] [address] [facility] 300 [place] [address] Assigned Musculoskeletal Provider 10/09/22 Livan Sharif MD [address], [facility] [address] [place] [address] Assigned Heart and Vascular Provider 11/06/22 11/12/22 Catherine Cm MD [address] [place] 304705 Assigned Heart and Vascular Provider 11/13/22 05/27/23 Sydnie Martinez, VJ Personal Advocate & Liaison (PAL) Family Medicine 03/28/23 07/31/23 Alfonso Renteria MD 5775 [facility] 200 [place] [address] Assigned Neuroscience Provider 04/02/23 Cheng Todd PA-C [address] [place] [address] Assigned PCP 04/30/23 07/15/23 Radha Lomeli APRN PATTERN WORKER [address] [place] [address] Assigned Heart and Vascular Provider 05/28/23 Jelena David OD [address]305 [facility] [address] MD Ophthalmology 06/15/23 Pao Joseph, RN Personal Advocate & Liaison (PAL) Nurse 08/01/23 Esha Grimm PAUcheC [address] [place] [address] Assigned PCP 07/16/23 Valery Veronica PA-C 909 [place] [address] Physician Diesel Locomotive Firer Dermatology 09/19/23 Rey Tay MD [address] [place] [address] Gastroenterology 09/20/23 Rocky Zepeda DO [address] [place] [address] Physician Gastroenterology 09/20/23 Philip Dumont MD [address] [place] [address] Physician Ophthalmology 09/22/23 documented as of this encounter
--- OUTSIDE RECORDS SUMMARY | 2023-10-28 16:43 | XMS_ITS | Encounter Summary ---
Author Name Unknown Organization [facility] Address [address] [place] [address] Care Team Providers Care Senior Human Resources Representative Name Role Phone Lita Oseguera Unavailable Unavailable Marija Edgar APRN ROD POINTER Primary Care Provider U mandaailMarija Callaway APRN ROD POINTER Unavailable Unavail able Keisha Dotson MD Unavailable [phone] Diana Desir [facility] Unavailable [phone] Rain Galaviz PA-C Unavailable Tavia Wyatt MD Unavailable Unavailable Erica Farrell RECORDER GRAVITY PROSPECTING ROD POINTER Unavailable Tavia Wyatt MD Unavailable Unavailable Rich Barrett MD Unavailable [phone] Neil Kent MD Unavailable Roney Story DPM Unavailable [phone] Erica Farrell APRN ROD POINTER Unavailable Diana Desir [facility] Unavailable [phone] Jelena David OD Unavailable [phone] Galo Burrell MD Unavailable Unavailable Livan Sharif MD Unavailable Livan Sharif MD Unavailable Catherine Cm MD Unavailable + Valery Veronica PA-C Unavailable [phone] Catherine Cm MD Unavailable + Johnny Murillo MD Unavailable [phone] Brea Quinn RECORDER GRAVITY PROSPECTING ROD POINTER Unavailable [phone] Brea Quinn RECORDER GRAVITY PROSPECTING ROD POINTER Unavailable [phone] Jose Francisco Johnson MD Unavailable Livan Sharif MD Unavailable Catherine Cm MD Unavailable + Sydnie Martinez RN Unavailable Unavailable Alfonso Renteria MD Unavailable [phone] Esha Grimm PA-C Primary Care Provider Cheng Tdod PA-C Unavailable Radha Lomeli RECORDER GRAVITY PROSPECTING ROD POINTER Unavailable Jelena David OD Unavailable Pao Joseph RN Unavailable Unavailable Esha Grimm PA-C Unavailable [phone] Valery Veronica PA-C Unavailable [phone] Rey Tay MD Unavailable Rocky Zepeda DO Unavailable Philip Dumont MD Unavailable Encounter Details Date Type Department Care Team (Late st Contact Info) Description 04/07/2022 [facility] Medical Advice [address] [address] Diana Desir, [facility] [address] [place] [address] Social History Tobacco Use Types [...] How often do you attend hindu or sikhism serv ices? Never 09/22/2021 Do you belong [...] Answer Date Recorded PHQ-2 Score 2 12/18/2021 [facility] - Occupational Stress Questionnaire Answer Date [...] or slept in a fpc (including now)? No 09/22/2021 [place] Depression Scale Answer Date Recorded [place] Depression Score 5 01/14/2021 Last EPDS Self [...] [facility] Imaging [address] [place] [address] Lauren Claudio PA-C [address] [place], [place] [phone] 11/03/2023 8:00 AM CDT Office Visit [address] [phone] Valery Veronica PA-C [address] [place] [address] 11/29/2023 8:00 AM CDT Office Visit [facility] [address] [place] [phone] Esha Grimm PA-C [address] [place] [phone] 12/19/2023 11:30 AM CDT Hospital Encounter [address]th [place] [phone] Rocky Zepeda DO [address] [place] [address] 12/19/2023 11:30 AM CDT - 12/19/2023 12:00 PM CDT Surgery [address] [phone] Rocky Zepeda, DO [address] [place], [place] [address] Esophagoscopy, gastroscopy, duodenoscopy (EGD), combined 01/02/2024 8:00 AM CDT Office Visit [facility] [address] [place] [phone] Lauren Claudio PA-C [address] [place] [address] Kelli Perez MD [address] [place] [address] Scheduled Procedures Name Priority Associated Diagnoses Date/Ti id ESOPHAGOGASTRODUODENOSCOPY Eosinophilic esophagitis Esophageal dysphagia 12/19/2023 11:30 AM CDT documented as of this encounter Visit Diagnoses Not on filedocumented in this encounter Additional Health Concerns Infection Onset Date Last Indicated Resolved Time Rule Out COVID-19 04/26/2022 04/26/2022 04/26/2022 6:47 AM CDT Rule Out COVID-19 05/17/2022 05/17/2022 05/17/2022 10:20 PM MULTILITH OPERATOR Rule Out COVID-19 06/09/2022 06/09/2022 06/09/2022 9:35 AM MULTILITH OPERATOR COVID-19 06/09/2022 06/09/2022 06/30/2022 11:4 1 PM MULTILITH OPERATOR Rule Out COVID-19 11/10/2022 11/10/2022 11/11/2022 12:17 PM CDT Rule Out COVID-19 03/07/2023 03/07/2023 03/07/2023 1:20 PM CDT Assessment Noted Time PHQ-9 Depression Total Score: 2 12/19/19 22 2:50 PM CDT documented as of this encounter Care Teams Senior Human Resources Representative Relationship Specialty Start Date End Date Marija Edgar APRN ROD POINTER PCP - General Nurse Practitioner 04/30/20 04/14/23 Esha Grimm [facility]-C [address] [facility] [address] PCP - General Family Medicine 05/04/23 Lita Oseguera Personal Advocate & Liaison (PAL) 02/28/20 03/27/23 Marija Edgar APRN ROD POINTER Assigned PCP 06/08/20 04/29/23 Keisha Dotson MD 909 [place], [place] 495785 Assigned Neuroscience Provider 06/04/20 04/01/23 Diana Desir, [facility] [address] [place], [place] 4[address] Pharmacist Pharmacist 04/17/21 Rain Galaviz PA-C [address] [place] [address] [address] [facility] [place] [address] Physician Wildlife Control Operator Dermatology 04/28/21 Tavia Wyatt MD [address] [place] [address] [address] [facility] [address] Dermatology 07/14/21 Erica Farrell APRN ROD POINTER [address] [place] [address] Nurse Practitioner Cardiovascular Disease 09/09/21 Tavia Wyatt MD Assigned Surgical Provider 11/29/21 05/07/22 Rich Barrett MD [address] 202885 Physician Ophthalmology 01/21/22 Neil Kent MD 500 [place], [place] [address] Dermatology 02/24/22 Roney Story DPM [address] [facility] [address] [place] [address] Assigned Musculoskeletal Provider 03/20/22 08/13/22 Erica Farrell APRN ROD POINTER 1700 [place] [address] Assigned Heart and Vascular Provider 04/03/22 04/16/22 [facility] 3033 [place] [address] Assigned MTM Pharmacist 04/07/22 Jelena David OD [address] [facility] [address] Assigned Surgical Provider 05/08/22 10/08/22 Galo Burrell MD Assigned Heart and Vascular Provider 04/17/22 06/11/22 Livan Sharif MD [address] [place] [id number] Cardiovascular Disease 05/14/22 Livan Sharif MD [address] [place] 698845 Assigned Heart and Vascular Provider 06/12/22 07/23/22 Catherine Cm MD [address] [place] [address] Cardiovascular Disease 07/21/22 Valery Veronica, PAUcheC [address] [place] [address] Physician Wildlife Control Operator Dermatology 07/21/22 Catherine Cm MD [address] [email or web address] [address] [place] 7510[address] Assigned Heart and Vascular Provider 07/24/22 11/05/22 Johnny Murillo MD [address] [place] [address] 316464 Assigned Musculoskeletal Provider 08/14/22 10/08/22 Brea Quinn APRN ROD POINTER [address] [place] [address] 526165 Nurse Practitioner Dermatology 09/21/22 Brea Quinn APRN ROD POINTER [address] [place] [address] [place] 550802 Assigned Surgical Provider 10/09/22 [place] [address] [place] [address] 720037 Assigned Musculoskeletal Provider 10/09/22 Livan Sharif MD [address], [address] [place] [address] Assigned Heart and Vascular Provider 11/06/22 11/12/22 Catherine Cm MD [address] [place] [address]54[address] Assigned Heart and Vascular Provider 11/13/22 05/27/23 Sydnie Martinez RN Personal Advocate & Liaison (PAL) Family Medicine 03/28/23 07/31/23 Alfonso Renteria MD 5775 [facility] [address] [place] [address] Assigned Neuroscience Provider 04/02/23 Cheng Todd PA-C [address] [place], [place] 83709[address] Assigned PCP 04/30/23 07/15/23 Radha Lomeli, ARLENE ROD POINTER [address] [place] [address] Assigned Heart and Vascular Provider 05/28/23 Jelena David OD [address] [place] [address] Ophthalmology 06/15/23 Pao Joseph RN Personal Advocate & Liaison (PAL) Nurse 08/01/23 Esha Grimm PA-C [address] [place] [phone] Assigned PCP 07/16/23 Valery Veronica PA-C 909 [place], [place] 319135 Physician Wildlife Control Operator Dermatology 09/19/23 Rey Tay MD 909 [place] [address] MD Gastroenterology 09/20/23 Rocky Zepeda DO [address] [place] [address] Physician Gastroenterology 09/20/23 Philip Dumont MD 6 [place] [address] Physician Ophthalmology 09/22/23 documented as of this encounter
--- OUTSIDE RECORDS SUMMARY | 2023-10-28 16:43 | XMS_ITS | Encounter Summary ---
Author Name Unknown Organization [facility] Address [address] [place] [address] Care Team Providers Care Manager Social Media Name Role Phone Lita Oseguera Unavailable Unavailable Marija Edgar APRN LANDCARE FACILITATOR Primary Care Provider U mandaailMarija Callaway APRN LANDCARE FACILITATOR Unavailable Unavail able Keisha Dotson MD Unavailable [phone] Diana Desir [facility] Unavailable Rain Galaviz PA-C Unavailable Tavia Wyatt MD Unavailable Unavailable Erica Farrell APRN LANDCARE FACILITATOR Unavailable Rich Barrett MD Unavailable [phone] Neil Knet MD Unavailable Roney Story DPM Unavailable [phone] Diana Desir [facility] Unavailable [phone] Jelena David OD Unavailable Galo Burrell MD Unavailable Unavailable Livan Sharif MD Unavailable Livan Sharif MD Unavailable Catherine Cm MD Unavailable + Valery Veronica PA-C Unavailable [phone] Catherine Cm MD Unavailable + Johnny Murillo MD Unavailable [phone] Brea Quinn TIME CYCLE OPERATOR LANDCARE FACILITATOR Unavailable [phone] Brea Quinn TIME CYCLE OPERATOR LANDCARE FACILITATOR Unavailable Jose Francisco Johnson MD Unavailable Livan Sharif MD Unavailable Catherine Cm MD Unavailable + Sydnie Martinez RN Unavailable Unavailable Alfonso Renteria MD Unavailable [phone] Esha Grimm PA-C Primary Care Provider Cheng Todd PA-C Unavailable [phone] Radha Lomeli TIME CYCLE OPERATOR LANDCARE FACILITATOR Unavailable Jelena David Radha OD Unavailable Pao Joseph RN Unavailable Unavailable Esha Grimm PA-C Unavailable [phone] Valery Veronica PA-C Unavailable [phone] Rey Tay MD Unavailable Rocky Zepeda DO Unavailable Philip Dumont MD Unavailable Encounter Details Date Type Department Care Team (Late st Contact Info) Description 05/11/2022 [facility] [address] [address] Diana Desir, [facility] [address] [place], [place] [phone] Social History Tobacco Use Types Packs/Day Years [...] How often do you attend rastafari or episcopal serv ices? Never 09/22/2021 Do you belong [...] Administer PHQ-9 if positive 1 05/13/2022 [facility] - Occupational [...] in a usp (including now)? No 09/22/2021 [place] Depression Scale Answer Date Recorded [place] Depression Score 5 01/14/2021 Last EPDS Self [...] Appointment [facility] [address] [place] [address] Lauren Claudio PA-C [address] [place] [address] 11/03/2023 8:00 AM CDT Office Visit [address] [phone] Valery Veronica PA-C [address] [place] [address] 11/29/2023 8:00 AM CDT Office Visit [facility] [address] [place] [phone] Esha Grimm PA-C [address] [place] [address] 12/19/2023 11:30 AM CDT Hospital Encounter [address] [phone] Rocky Zepeda DO 500 [place] [address] 12/19/2023 11:30 AM CDT - 12/19/2023 12:00 PM CDT Surgery [address] [phone] Rocky Zepeda DO [address] [place] [address] Esophagoscopy, gastroscopy, duodenoscopy (EGD), combined 01/02/2024 8:00 AM CDT Office Visit [facility] [address] [place] [phone] Lauren Claudio PA-C [address] [place] [address] Kelli Perez MD 606 [facility] [address] [address] Scheduled Procedures Name Priority Associated Diagnoses Date/Ti wy ESOPHAGOGASTRODUODENOSCOPY Eosinophilic esophagitis Esophageal dysphagia 12/19/2023 11:30 AM CDT documented as of this encounter Visit Diagnoses Not on filedocumented in this encounter Additional Health Concerns Infection Onset Date Last Indicated Resolved Time Rule Out COVID-19 05/17/2022 05/17/2022 05/17/2022 10:20 PM SAND AND GRAVEL PLANT OPERATOR Rule Out COVID-19 06/09/2022 06/09/2022 06/09/2022 9:35 AM SAND AND GRAVEL PLANT OPERATOR COVID-19 06/09/2022 06/09/2022 06/30/2022 11:4 1 PM SAND AND GRAVEL PLANT OPERATOR Rule Out COVID-19 11/10/2022 11/10/2022 11/11/2022 12:17 PM CDT Rule Out COVID-19 03/07/2023 03/07/2023 03/07/2023 1:20 PM CDT Assessment Noted Time PHQ-9 Depression Total Score: 3 05/13/20 22 8:49 PM CDT documented as of this encounter Care Teams Manager Social Media Relationship Specialty Start Date End Date Marija Edgar APRN LANDCARE FACILITATOR PCP - General Nurse Practitioner 04/30/20 04/14/23 Esha Grimm PA-C [address] [place] [phone] PCP - General Family Medicine 05/04/23 Lita Oseguera Personal Advocate & Liaison (PAL) 02/28/20 03/27/23 Marija Edgar APRN LANDCARE FACILITATOR Assigned PCP 06/08/20 04/29/23 Keisha Dotson MD 9[address] [place], [place] [phone] Assigned Neuroscience Provider 06/04/20 04/01/23 Diana Desir, [facility] [address] [place] [address] Pharmacist Pharmacist 04/17/21 Rain Galaviz PA-C [address] [place] [address] [address] [facility] [address] Physician Second Worker Dermatology 04/28/21 Tavia Wyatt MD [address] [place] [address] DR RA[address] [facility] [address] Dermatology 07/14/21 Erica Farrell APRN LANDCARE FACILITATOR [address] [place] [address] Nurse Practitioner Cardiovascular Disease 09/09/21 Rich Barrett MD [address] [phone] Physician Ophthalmology 01/21/22 Neil Kent MD 500 [place], [place] [address] Dermatology 02/24/22 [place] [address] [facility] [address] [place], [place] 94[address] Assigned Musculoskeletal Provider 03/20/22 08/13/22 Diana Desir, [facility] [address] [place], [place] 85[address] Assigned MTM Pharmacist 04/07/22 Jelena David OD [address] [facility] [place] [address] Assigned Surgical Provider 05/08/22 10/08/22 Galo Burrell MD Assigned Heart and Vascular Provider 04/17/22 06/11/22 Livan Sharif MD [address] [place] [address] Cardiovascular Disease 05/14/22 Livan Sharif MD [address] [place] [address] Assigned Heart and Vascular Provider 06/12/22 07/23/22 Catherine Cm MD [address] [place], [place] [address] Cardiovascular Disease 07/21/22 Valery Veronica, PA-C [address] [place] [address] Physician Second Worker Dermatology 07/21/22 Catherine Cm MD [address] [place] [address] Assigned Heart and Vascular Provider 07/24/22 11/05/22 Johnny Murillo MD [address] [address] Assigned Musculoskeletal Provider 08/14/22 10/08/22 Brea Quinn APRN LANDCARE FACILITATOR 500 [place] [address] Nurse Practitioner Dermatology 09/21/22 Brea Quinn APRN LANDCARE FACILITATOR [address] [place] [address] Assigned Surgical Provider 10/09/22 [place] [address] [address] [facility] [address] [place] [address] Assigned Musculoskeletal Provider 10/09/22 Livan Sharif MD [address], [facility] [address] [place] [address] Assigned Heart and Vascular Provider 11/06/22 11/12/22 Catherine Cm MD [address] [facility] [address] [place] [phone] Assigned Heart and Vascular Provider 11/13/22 05/27/23 Sydnie Martinez RN Personal Advocate & Liaison (PAL) Family Medicine 03/28/23 07/31/23 Alfonso Renteria MD [address] [facility] [address] [place] [address] Assigned Neuroscience Provider 04/02/23 Cheng Todd PA-C [address] [place], [place] [phone] Assigned PCP 04/30/23 07/15/23 Radha Lomeli APRN LANDCARE FACILITATOR [address] [place] [address] Assigned Heart and Vascular Provider 05/28/23 Jelena David OD [address] [facility] [place] [address] MD Ophthalmology 06/15/23 Pao Joseph, VJ Personal Advocate & Liaison (PAL) Nurse 08/01/23 Esha Grimm PA-C [address] [place] [address] Assigned PCP 07/16/23 Valery Veronica PA-C [address] [place] [address] Physician Second Worker Dermatology 09/19/23 Rey Tay MD [address] [place] [address]055 Gastroenterology 09/20/23 Rocky Zepeda DO [address] [place] [address] 6269[address] Physician Gastroenterology 09/20/23 Philip Dumont MD [address] [place] [phone] Physician Ophthalmology 09/22/23 documented as of this encounter
--- OUTSIDE RECORDS SUMMARY | 2023-10-28 16:43 | XMS_ITS | Encounter Summary ---
Author Name Unknown Organization [facility] Address [address] [place] [address] Care Team Providers Care Color Checker Roving Or Yarn Name Role Phone Lita Oseguera Unavailable Unavailable Marija Edgar APRN CARD WRITER HAND Primary Care Provider U mandaailMarija Callaway APRN CARD WRITER HAND Unavailable Unavail able Keisha Dotson MD Unavailable [phone] Diana Desir [facility] Unavailable [phone] Rain Galaviz-C Unavailable [phone] Tavia Wyatt MD Unavailable Unavailable Erica Frarell APRN CARD WRITER HAND Unavailable Tavia Wyatt MD Unavailable Unavailable Rich Barrett MD Unavailable [phone] Neil Kent MD Unavailable Roney Story DPM Unavailable [phone] Diana Desir [facility] Unavailable [phone] Jelena David OD Unavailable [phone] Galo Burrell MD Unavailable Unavailable Livan Sharif MD Unavailable Livan Sharif MD Unavailable Catherine Cm MD Unavailable + Valery Veronica PA-C Unavailable Catherine Cm MD Unavailable + Johnny Murillo MD Unavailable [phone] Brea Quinn CHARM FILTER OPERATOR HELPER CARD WRITER HAND Unavailable [phone] Brea Quinn CHARM FILTER OPERATOR HELPER CARD WRITER HAND Unavailable [phone] Jose Francisco Johnson MD Unavailable Livan Sharif MD Unavailable Catherine Cm MD Unavailable + Sydnie Martinez RN Unavailable Unavailable Alfonso Renteria MD Unavailable Esha Grimm PA-C Primary Care Provider Cheng Todd PA-C Unavailable [phone] Radha Lomeli CHARM FILTER OPERATOR HELPER CARD WRITER HAND Unavailable Jelena David OD Unavailable Pao Joseph RN Unavailable Unavailable Esha Grimm PA-C Unavailable [phone] Valery Veronica PA-C Unavailable [phone] Rey Tay MD Unavailable Rocky Zepeda DO Unavailable Philip Dumont MD Unavailable Encounter Details Date Type Department Care Team (Late st Contact Info) Description 04/20/2022 [facility] Medical Advice [facility] [place] [id number] [facility] [address] [place] [address] Margaret Rendon, RN Social History Tobacco Use [...] How often do you attend christianity or druze serv ices? Never 09/22/2021 Do you belong to any clubs o r organizations such as christianity groups, unions, fraternal or athletic groups, [...] 2 12/18/2021 [facility] - Occupational [...] in a assisted (including now)? No 09/22/2021 [place] Depression Scale Answer Date Recorded [place] Depression Score 5 01/14/2021 Last EPDS Self [...] Info) Description 11/01/2023 8:00 AM CDT Appointment [facility] [address] [place] [address] Lauren Claudio PA-C [address] [place] [address] 11/03/2023 8:00 AM CDT Office Visit [address] [phone] Valery Veronica PA-C [address] [place] [address] 11/29/2023 8:00 AM CDT Office Visit [facility] [address] [place] [phone] Esha Grimm PA-C [address] [place] [address] 12/19/2023 11:30 AM CDT Hospital Encounter [address] [phone] Rocky Zepeda DO 500 [place] [address] 12/19/2023 11:30 AM CDT - 12/19/2023 12:00 PM CDT Surgery [address] [phone] Rocky Zepeda DO 500 [place] [address] Esophagoscopy, gastroscopy, duodenoscopy (EGD), combined 01/02/2024 8:00 AM CDT Office Visit [facility] [address] [place] [address] Lauren Claudio PA-C [address] [place], [place] [phone] Kelli Perez MD [address] [place] [address] Scheduled Procedures Name Priority Associated Diagnoses Date/Ti sc ESOPHAGOGASTRODUODENOSCOPY Eosinophilic esophagitis Esophageal dysphagia 12/19/2023 11:30 AM CDT documented as of this encounter Visit Diagnoses Not on filedocumented in this encounter Additional Health Concerns Infection Onset Date Last Indicated Resolved Time Rule Out COVID-19 04/26/2022 04/26/2022 04/26/2022 6:47 AM CDT Rule Out COVID-19 05/17/2022 05/17/2022 05/17/2022 10:20 PM DISPLAY SPECIALIST Rule Out COVID-19 06/09/2022 06/09/2022 06/09/2022 9:35 AM DISPLAY SPECIALIST COVID-19 06/09/2022 06/09/2022 06/30/2022 11:4 1 PM DISPLAY SPECIALIST Rule Out COVID-19 11/10/2022 11/10/2022 11/11/2022 12:17 PM CDT Rule Out COVID-19 03/07/2023 03/07/2023 03/07/2023 1:20 PM CDT Assessment Noted Time PHQ-9 Depression Total Score: 2 12/19/19 22 2:50 PM CDT documented as of this encounter Care Teams Color Checker Roving Or Yarn Relationship Specialty Start Date End Date Marija Edgar APRN CARD WRITER HAND PCP - General Nurse Practitioner 04/30/20 04/14/23 Esha Grimm PA-C [address] [place] [phone] PCP - General Family Medicine 05/04/23 Lita Oseguera Personal Advocate & Liaison (PAL) 02/28/20 03/27/23 Marija Edgar APRN CARD WRITER HAND Assigned PCP 06/08/20 04/29/23 Keisha Dotson MD 9 [place], [place] 812135 Assigned Neuroscience Provider 06/04/20 04/01/23 [facility] 3033 [place], [place] 15[address] Pharmacist Pharmacist 04/17/21 Rain Galaviz PA-C [address] [place] [address] [address] [place] [address] Physician Furniture Sales Associate Dermatology 04/28/21 Tavia Wyatt MD [address] [place] [address] [facility] [address] Dermatology 07/14/21 Erica Farrell APRN CARD WRITER HAND [address] [place] [address] Nurse Practitioner Cardiovascular Disease 09/09/21 Tavia Wyatt MD Assigned Surgical Provider 11/29/21 05/07/22 Rich Barrett MD [address] [place] [address] Physician Ophthalmology 01/21/22 Neil Kent MD [address] [place] [address] Dermatology 02/24/22 Roney Story DPM [address] [facility] [address] [place] [address] Assigned Musculoskeletal Provider 03/20/22 08/13/22 [facility] [address] [place] [address] Assigned MTM Pharmacist 04/07/22 Jelena David OD [address] [facility] [place] [address] Assigned Surgical Provider 05/08/22 10/08/22 Galo Burrell MD Assigned Heart and Vascular Provider 04/17/22 06/11/22 Livan Sharif MD [address] [place] [address] Cardiovascular Disease 05/14/22 Livan Sharif MD [address] [place] [phone] Assigned Heart and Vascular Provider 06/12/22 07/23/22 Catherine Cm MD [address] [place] 0750[address] Cardiovascular Disease 07/21/22 Valery Veronica PA-C [address] [place] [address] Physician Furniture Sales Associate Dermatology 07/21/22 Catherine Cm MD [address] [facility] [place] 330135 Assigned Heart and Vascular Provider 07/24/22 11/05/22 Johnny Murillo MD [address] [place], [place] [address] Assigned Musculoskeletal Provider 08/14/22 10/08/22 Brea Quinn APRN CARD WRITER HAND 500 [place] [address] Nurse Practitioner Dermatology 09/21/22 Brea Quinn APRN CARD WRITER HAND 6401 [facility] [place] 6[address]102 Assigned Surgical Provider 10/09/22 [place] [address] [place] [address] 017027 Assigned Musculoskeletal Provider 10/09/22 Livan Sharif MD [address] [place] [address] [place] [address] Assigned Heart and Vascular Provider 11/06/22 11/12/22 Catherine Cm MD [address] [place] [address] [place] 768395 Assigned Heart and Vascular Provider 11/13/22 05/27/23 Sydnie Martinez RN Personal Advocate & Liaison (PAL) Family Medicine 03/28/23 07/31/23 Alfonso Renteria MD [address] [facility] [address] [place] [address] Assigned Neuroscience Provider 04/02/23 Cheng Todd PA-C [address] [place], [place] [phone] Assigned PCP 04/30/23 07/15/23 Radha Lomeli APRN CARD WRITER HAND [address] [place], [place] [address] Assigned Heart and Vascular Provider 05/28/23 Jelena David OD [address] [facility] [address] Ophthalmology 06/15/23 Pao Joseph, VJ Personal Advocate & Liaison (PAL) Nurse 08/01/23 Esha Grimm PA-C [address] [place] [phone] Assigned PCP 07/16/23 Valery Veronica PA-C [address] [place] [address] 751745 Physician Furniture Sales Associate Dermatology 09/19/23 Rey Tay MD [address] [place] [address] 161695 Gastroenterology 09/20/23 Rocky Zepeda DO [address] [place] [address] 278765 Physician Gastroenterology 09/20/23 Philip Dumont MD 6 [place] [address] Physician Ophthalmology 09/22/23 documented as of this encounter
--- OUTSIDE RECORDS SUMMARY | 2023-10-28 16:44 | XMS_ITS | Encounter Summary ---
Author Name Unknown Organization [place] Address [address] [place] [address] Care Team Providers Care Corn Picker Name Role Phone Lita Oseguera Unavailable Unavailable Marija Edgar APRN SYSTEMS ANALYSIS MANAGER Primary Care Provider U mandaailMarija Callaway APRN SYSTEMS ANALYSIS MANAGER Unavailable Unavail able Keisha Dotson MD Unavailable [phone] Galo Burrell MD Unavailable Unavailable Diana Desir [facility] Unavailable [phone] Rain Galaviz PA-C Unavailable Summer Lara MD Unavailable [phone] Tavia Wyatt MD Unavailable Unavailable Johnny Murillo MD Unavailable Erica Farrell APRN SYSTEMS ANALYSIS MANAGER Unavailable Tavia Wyatt MD Unavailable Unavailable Diana Desir [facility] Unavailable [phone] Rich Barrett MD Unavailable [phone] Neil Kent MD Unavailable Roney Story DPM Unavailable [phone] Erica Farrell APRN SYSTEMS ANALYSIS MANAGER Unavailable Diana Desri [facility] Unavailable [phone] Jelena David OD Unavailable Galo Burrell MD Unavailable Unavailable Livan Sharif MD Unavailable + Livan Sharif MD Unavailable + Catherine Cm MD Unavailable + Valery Veronica PA-C Unavailable [phone] Catherine Cm MD Unavailable + Johnny Murillo MD Unavailable [phone] Brea Quinn MEDICAL INSURANCE VERIFIER SYSTEMS ANALYSIS MANAGER Unavailable [phone] Brea Quinn MEDICAL INSURANCE VERIFIER SYSTEMS ANALYSIS MANAGER Unavailable [phone] Jose Francisco Johnson MD Unavailable Livan Sharif MD Unavailable + Catherine Cm MD Unavailable + Sydnie Martinez RN Unavailable Unavailable Alfonso Renteria MD Unavailable Esha Grimm PA-C Primary Care Provider Cheng Todd PA-C Unavailable Radha Lomeli MEDICAL INSURANCE VERIFIER SYSTEMS ANALYSIS MANAGER Unavailable [phone] Jelena David OD Unavailable Pao Joseph RN Unavailable Unavailable Esha Grimm PA-C Unavailable [phone] Valery Veronica PA-C Unavailable [phone] Rey Tay MD Unavailable Rocky Zepeda DO Unavailable Philip Dumont MD Unavailable [phone] Encounter Details Date Type Department Care Team (Late st Contact Info) Description 12/18/[address] [address] Lauren Claudio PA-C [address] [place] [address] Social History Tobacco Use Types [...] often do you attend latter day or sabianist serv ices? Never 09/22/2021 Do [...] Answer Date Recorded PHQ-2 Score 2 12/18/2021 [facility] - Occupational Stress Questionnaire [...] a long term (including now)? No 09/22/2021 [place] Depression Scale Answer Date Recorded [place] Depression Score 5 01/14/2021 Last EPDS Self [...] be reached at: Home number on file [phone] (home) Best Time: ANYTIME Can we leave a detailed message on this number? YES Call taken on 12/18/2021 at 11:01 AM by Amalia Deluca documented in this encounter Plan of Treatment Upcoming Encounters Date Type Department Care Team (Late st Contact Info) Description 11/01/2023 8:00 AM CDT Appointment [facility] [address] [place] [phone] Lauren Claudio PAUcheC [address] [place] [address] 11/03/2023 8:00 AM CDT Office Visit [address] [address] Valery Veronica, PA-C 8 [place] [address] 11/29/2023 8:00 AM CDT Office Visit [address] [phone] Esha Grimm PA-C [id number] [place] [address] 12/19/2023 11:30 AM CDT Hospital Encounter [address] [phone] Rocky Zepeda DO 500 [place], [place] 939925 12/19/2023 11:30 AM CDT - 12/19/2023 12:00 PM CDT Surgery [address] [phone] Rocky Zepeda DO 500 [place], [place] 908785 Esophagoscopy, gastroscopy, duodenoscopy (EGD), combined 01/02/2024 8:00 AM CDT Office Visit [address] [phone] Lauren Claudio PA-C [address] [place], [place] [phone] Kelli Perez MD [address] [place] [address] 529024 Scheduled Procedures Name Priority Associated Diagnoses Date/Ti [...] Out COVID-19 05/17/2022 05/17/2022 05/17/2022 10:20 PM COMMUNICATIONS SCIENTIST Rule Out COVID-19 06/09/2022 06/09/2022 06/09/2022 9:35 AM COMMUNICATIONS SCIENTIST COVID-19 06/09/2022 06/09/2022 06/30/2022 11:4 1 PM COMMUNICATIONS SCIENTIST Rule Out COVID-19 11/10/2022 11/10/2022 11/11/2022 12:17 PM CDT Rule Out COVID-19 03/07/2023 03/07/2023 03/07/2023 1:20 PM CDT Assessment Noted Time PHQ-9 Depression Total Score: 2 12/19/19 2:50 PM CDT documented as of this encounter Care Teams Corn Picker Relationship Specialty Start Date End Date Marija Edgar APRN SYSTEMS ANALYSIS MANAGER PCP - General Nurse Practitioner 04/30/20 04/14/23 Esha Grimm PA-C [address] [place] [address] PCP - General Family Medicine 05/04/23 Lita Oseguera Personal Advocate & Liaison (PAL) 02/28/20 03/27/23 Marija Edgar APRN SYSTEMS ANALYSIS MANAGER Assigned PCP 06/08/20 04/29/23 Keisha Dotson MD 9 [place], [place] 330245 Assigned Neuroscience Provider 06/04/20 04/01/23 Galo Burrell MD Assigned Heart and Vascular Provider 10/05/20 04/02/22 Diana Desir, [facility] 3033 [place] [address] Pharmacist Pharmacist 04/17/21 Rain Galaviz PA-C [address] [place] [address] [place] [address] Physician Corn Grower Dermatology 04/28/21 Summer Lara MD [address] [facility] [place] [place] [address] Assigned OBGYN Provider 05/31/21 2 Tavia Wyatt MD [address] [place], [place] [address] [address] Dermatology 07/14/21 Johnny Murillo MD [address] [facility] [address] [place] [address] Assigned Musculoskeletal Provider 08/30/21 03/17/22 Erica Farrell APRN SYSTEMS ANALYSIS MANAGER [address] [facility] [address] [place] [address] Nurse Practitioner Cardiovascular Disease 09/09/21 Tavia Wyatt MD Assigned Surgical Provider 11/29/21 05/07/22 Diana Desir, [facility] [address] [place] [address] Assigned MTM Pharmacist 01/02/22 Rich Barrett MD 516 [facility] 9A [place], [place] 0326[address] Physician Ophthalmology 01/21/22 Neil Kent MD 500 [place] [address] Dermatology 02/24/22 Roney Story DPM [address] [facility] [address] [place] [address] Assigned Musculoskeletal Provider 03/20/22 08/13/22 Erica Farrell APRN SYSTEMS ANALYSIS MANAGER 1700 [place] [address] Assigned Heart and Vascular Provider 04/03/22 04/16/22 Diana Desir, [facility] [address] [place], [place] 895626 Assigned MTM Pharmacist 04/07/22 Jelena David OD [address] [facility] [place] [address] Assigned Surgical Provider 05/08/22 10/08/22 Galo Burrell MD Assigned Heart and Vascular Provider 04/17/22 06/11/22 Livan Sharif MD [address] [place] 141095 Cardiovascular Disease 05/14/22 Livan Sharif MD [address] [place] [id number] Assigned Heart and Vascular Provider 06/12/22 07/23/22 Catherine Cm MD [address] [address] Cardiovascular Disease 07/21/22 Valery Veronica, PA-C [address] [place] [address] Physician Corn Grower Dermatology 07/21/22 Catherine Cm MD [address] [address] Assigned Heart and Vascular Provider 07/24/22 11/05/22 Johnny Murillo MD [address] [place] [address] Assigned Musculoskeletal Provider 08/14/22 10/08/22 Brea Quinn APRN SYSTEMS ANALYSIS MANAGER [address] [place] [address] 223925 Nurse Practitioner Dermatology 09/21/22 Brea Quinn APRN SYSTEMS ANALYSIS MANAGER [address] [place] [address] Assigned Surgical Provider 10/09/22 [place] [address] [place] [address] Assigned Musculoskeletal Provider 10/09/22 Livan Sharif MD [address] [address] Assigned Heart and Vascular Provider 11/06/22 11/12/22 Catherine Cm MD [address] [facility] [address] [place] [address] Assigned Heart and Vascular Provider 11/13/22 05/27/23 Sydnie Martinez RN Personal Advocate & Liaison (PAL) Family Medicine 03/28/23 07/31/23 Alfonso Renteria MD 5775 [facility] 200 [place] [address] Assigned Neuroscience Provider 04/02/23 Cheng Todd PA-C [address] [place], [place] [phone] Assigned PCP 04/30/23 07/15/23 Radha Lomeli APRN SYSTEMS ANALYSIS MANAGER [address] [place] [address] Assigned Heart and Vascular Provider 05/28/23 Jelena David OD [address] [facility] [place] [address] Ophthalmology 06/15/23 Pao Joseph, VJ Personal Advocate & Liaison (PAL) Nurse 08/01/23 Esha Grimm PA-C [address] [place] [address] Assigned PCP 07/16/23 Valery Veronica PA-C [address] [place] [address] Physician Corn Grower Dermatology 09/19/23 Rey Tay MD [address] [place] [address] Gastroenterology 09/20/23 Rocky Zepeda DO [address] [place] [address] Physician Gastroenterology 09/20/23 Philip Dumont MD [address] [place] [address] Physician Ophthalmology 09/22/23 documented as of this encounter
--- OUTSIDE RECORDS SUMMARY | 2023-10-28 16:44 | XMS_ITS | Encounter Summary ---
Author Name Unknown Organization [place] Address [address] [place] [address] Care Team Providers Care Inspector Automatic Typewriter Name Role Phone Lita Oseguera Unavailable Unavailable Marija Edgar APRN DONOR SERVICES TEAM LEADER Primary Care Provider U mandaailMarija Callaway APRN DONOR SERVICES TEAM LEADER Unavailable Unavail able Keisha Dtoson MD Unavailable [phone] Galo Burrell MD Unavailable Unavailable Diana Desir [facility] Unavailable [phone] Rain Galaviz PA-C Unavailable Summer Lara MD Unavailable [phone] Tavia Wyatt MD Unavailable Unavailable Johnny Murillo MD Unavailable Erica Farrell APRN DONOR SERVICES TEAM LEADER Unavailable Tavia Wyatt MD Unavailable Unavailable Diana Desir [facility] Unavailable [phone] Rich Barrett MD Unavailable [phone] Neli Kent MD Unavailable Roney Story DPM Unavailable [phone] Erica Farrell APRN DONOR SERVICES TEAM LEADER Unavailable Diana Desir [facility] Unavailable [phone] Jelena David OD Unavailable Galo Burrell MD Unavailable Unavailable Livan Sharif MD Unavailable + Livan Sharif MD Unavailable + Catherine Cm MD Unavailable + Valery Veronica PA-C Unavailable [phone] Catherine Cm MD Unavailable + Johnny Murillo MD Unavailable [phone] Brea Quinn SUPERVISOR SHIP MAINTENANCE SERVICES DONOR SERVICES TEAM LEADER Unavailable [phone] Brea Quinn SUPERVISOR SHIP MAINTENANCE SERVICES DONOR SERVICES TEAM LEADER Unavailable [phone] Jose Francisco Johnson MD Unavailable Livan Sharif MD Unavailable + Catherine Cm MD Unavailable + Sydnie Martinez RN Unavailable Unavailable Alfonso Renteria MD Unavailable Esha Grimm PA-C Primary Care Provider Cheng Todd PA-C Unavailable Radha Lomeli SUPERVISOR SHIP MAINTENANCE SERVICES DONOR SERVICES TEAM LEADER Unavailable [phone] Jelena David OD Unavailable Pao Joseph RN Unavailable Unavailable Esha Grimm PA-C Unavailable Valery Veronica PA-C Unavailable [phone] Rey Tay MD Unavailable Rocky Zepeda DO Unavailable Philip Dumont MD Unavailable [phone] Encounter Details Date Type Department Care Team (Late st Contact Info) Description 12/03/2021 MyC Medical Advice [facility] [address] [facility], [address] [place] [phone] Keisha Dotson MD [address] [place] [address] Social History Tobacco Use Types Packs/Day Years [...] How often do you attend islam or hindu serv ices? Never 09/22/2021 Do you belong [...] Answer Date Recorded PHQ-2 Score 2 09/22/2021 [facility] - Occupational Stress Questionnaire Answer Date [...] in a usp (including now)? No 09/22/2021 [place] Depression Scale Answer Date Recorded [place] Depression Score 5 01/14/2021 Last EPDS Self [...] [facility] [address] [facility] [place] [address] Lauren Claudio PA-C [address] [place], [place] [phone] 11/03/2023 8:00 AM CDT Office Visit [address] [phone] Valery Veronica PA-C [address] [place] [address] 11/29/2023 8:00 AM CDT Office Visit [facility] [address] [place] [phone] Esha Grimm PA-C [address] [place] [address] 12/19/2023 11:30 AM CDT Hospital Encounter [facility] 909 [facility] 5th [place] [phone] Rocky Zepeda, [address] [place] [address] 12/19/2023 11:30 AM CDT - 12/19/2023 12:00 PM CDT Surgery [facility] 9[address] [facility] [address] 5th [place] [phone] Rocky Zepeda, DO [address] [place] [address] Esophagoscopy, gastroscopy, duodenoscopy (EGD), combined 01/02/2024 8:00 AM CDT Office Visit [facility] [address] [place] [phone] Lauren Claudio PA-C [address] [place] [address] [phone] Kelli Perez MD [address] [place] [address] 449334 Scheduled Procedures Name Priority Associated Diagnoses Date/Ti [...] Out COVID-19 05/17/2022 05/17/2022 05/17/2022 10:20 PM CRM ANALYST Rule Out COVID-19 06/09/2022 06/09/2022 06/09/2022 9:35 AM CRM ANALYST COVID-19 06/09/2022 06/09/202206/30/2022 11:4 1 PM CRM ANALYST Rule Out COVID-19 11/10/2022 11/10/2022 11/11/2022 12:17 PM CDT Rule Out COVID-19 03/07/2023 03/07/2023 03/07/2023 1:20 PM CDT Assessment Noted Time PHQ-9 Depression Total Score: 2 04/02/20 10:19 AM CDT documented as of this encounter Care Teams Inspector Automatic Typewriter Relationship Specialty Start Date End Date Marija Edgar APRN DONOR SERVICES TEAM LEADER PCP - General Nurse Practitioner 04/30/20 04/14/23 Esha Grimm PA-C [address] [place] [address]739[address] PCP - General Family Medicine 05/04/23 Lita Oseguera Personal Advocate & Liaison (PAL) 02/28/20 03/27/23 Marija Edgar APRN DONOR SERVICES TEAM LEADER Assigned PCP 06/08/20 04/29/23 Keisha Dotson MD 909 [place], [place] 179245 Assigned Neuroscience Provider 06/04/20 04/01/23 Galo Burrell MD Assigned Heart and Vascular Provider 10/05/20 04/02/22 [facility] 3033 [place] [address] Pharmacist Pharmacist 04/17/21 Rain Galaviz PA-C [address] [place] [address] [place] [address] Physician Conduit Mechanic Dermatology 04/28/21 Summer Lara MD [address] [place] [address] Assigned OBGYN Provider 05/31/21 2 Tavia Wyatt MD [address] [place] [address] Dermatology 07/14/21 Johnny Murillo MD [address] [place] [address] Assigned Musculoskeletal Provider 08/30/21 03/17/22 Erica Farrell APRN DONOR SERVICES TEAM LEADER [address] [facility] [address] [place] [address] Nurse Practitioner Cardiovascular Disease 09/09/21 Tavia Wyatt MD Assigned Surgical Provider 11/29/21 05/07/22 Diana Desir, [facility] 3033 [place] [address] Assigned MTM Pharmacist 01/02/22 Rich Barrett MD 516 [facility] 9A [place], [place] 4209[address] Physician Ophthalmology 01/21/22 Neil Kent MD 500 [place], [place] 587515 Dermatology 02/24/[address] [address] [facility] 300 [place] [address] Assigned Musculoskeletal Provider 03/20/22 08/13/22 Erica Farrell APRN DONOR SERVICES TEAM LEADER 1700 [place] [address] Assigned Heart and Vascular Provider 04/03/22 04/16/22 Diana Desir, [facility] [address] [place] [address] Assigned MTM Pharmacist 04/07/22 Jelena David OD [address] [facility] [place] [address] Assigned Surgical Provider 05/08/22 10/08/22 Galo Burrell MD Assigned Heart and Vascular Provider 04/17/22 06/11/22 Livan Sharif MD [address] [place] [address] Cardiovascular Disease 05/14/22 Livan Sharif MD [address] [place] [address] Assigned Heart and Vascular Provider 06/12/22 07/23/22 Catherine Cm MD [address] [place] [address] Cardiovascular Disease 07/21/22 Valery Veronica, PA-C 909 [place] [address] Physician Conduit Mechanic Dermatology 07/21/22 Catherine Cm MD [address] [place] [address] Assigned Heart and Vascular Provider 07/24/22 11/05/22 Johnny Murillo MD [address] [address] Assigned Musculoskeletal Provider 08/14/22 10/08/22 Brea Quinn APRN DONOR SERVICES TEAM LEADER 500 [place] [address] Nurse Practitioner Dermatology 09/21/22 Brea Quinn APRN DONOR SERVICES TEAM LEADER [address] [place] [address] 903022 Assigned Surgical Provider 10/09/22 [place] [address] [facility] 300 [place] [address] Assigned Musculoskeletal Provider 10/09/22 Livan Sharif MD [address], [facility] [address] [place] [address] Assigned Heart and Vascular Provider 11/06/22 11/12/22 Catherine Cm MD [address] [facility] [address] [place] 37[address]45 Assigned Heart and Vascular Provider 11/13/22 05/27/23 Sydnie Martinez RN Personal Advocate & Liaison (PAL) Family Medicine 03/28/23 07/31/23 Alfonso Renteria MD 5775 [facility] 200 [place] [address] Assigned Neuroscience Provider 04/02/23 Cheng Todd PA-C [address] [place], [place] [phone] Assigned PCP 04/30/23 07/15/23 Radha Lomeli APRN DONOR SERVICES TEAM LEADER [address] [facility] [address] [place] [address] Assigned Heart and Vascular Provider 05/28/23 Jelena David OD [facility] [facility] [place] [address] MD Ophthalmology 06/15/23 Pao Joseph, VJ Personal Advocate & Liaison (PAL) Nurse 08/01/23 Esha Grimm PA-C [address] [place] [address]408[address] Assigned PCP 07/16/23 Valery Veronica PA-C [address] [place] [address] Physician Conduit Mechanic Dermatology 09/19/23 Rey Tay MD [address] [place] [address] 858275 Gastroenterology 09/20/23 Rocky Zepeda DO [address] [place] [address] 232495 Physician Gastroenterology 09/20/23 Philip Dumont MD [address] [place] [address] 951165 Physician Ophthalmology 09/22/23 documented as of this encounter
--- OUTSIDE RECORDS SUMMARY | 2023-10-28 16:44 | XMS_ITS | Encounter Summary ---
Author Name Unknown Organization [place] Address [address] [place] [address] Care Team Providers Care Remote Encoding Center Manager Name Role Phone Lita Oseguera Unavailable Unavailable Marija Edgar APRN TOWEL HEMMER Primary Care Provider U mandaailMarija Callaway APRN TOWEL HEMMER Unavailable Unavail able Keisha Dotson MD Unavailable [phone] Galo Burrell MD Unavailable Unavailable Diana Desir [facility] Unavailable [phone] Rain Galaviz PA-C Unavailable [phone] Summer Lara MD Unavailable [phone] Tavia Wyatt MD Unavailable Unavailable Johnny Murillo MD Unavailable Erica Farrell APRN TOWEL HEMMER Unavailable Tavia Wyatt MD Unavailable Unavailable iDana Desir [facility] Unavailable +[phone] Rich Barrett MD Unavailable [phone] Neil Kent MD Unavailable Roney Story DPM Unavailable [phone] Eirca Farrell APRN TOWEL HEMMER Unavailable Diana Desir [facility] Unavailable [phone] Jelena David OD Unavailable [phone] Galo Burrell MD Unavailable Unavailable Livan Sharif MD Unavailable + Livan Sharif MD Unavailable + Catherine Cm MD Unavailable + Valery Veronica PA-C Unavailable [phone] Catherine Cm MD Unavailable + Johnny Murillo MD Unavailable [phone] Brea Quinn RETROFIT INSTALLER TOWEL HEMMER Unavailable [phone] Brea Quinn RETROFIT INSTALLER TOWEL HEMMER Unavailable [phone] Jose Francisco Johnson MD Unavailable Livan Sharif MD Unavailable + Catherine Cm MD Unavailable + Sydnie Martinez RN Unavailable Unavailable Alfonso Renteria MD Unavailable [phone] Esha Grimm PA-C Primary Care Provider Cheng Todd PA-C Unavailable Radha Lomeli RETROFIT INSTALLER TOWEL HEMMER Unavailable [phone] Jelena David OD Unavailable Pao Joseph RN Unavailable Unavailable Esha Grimm PA-C Unavailable [phone] Valery Veronica PA-C Unavailable [phone] Rey Tay MD Unavailable Rocky Zepeda DO Unavailable Philip Dumont MD Unavailable [phone] Encounter Details Date Type Department Care Team (Late st Contact Info) Description 12/03/2021 [facility] [address] [address] Debbie Hdez MA Social History [...] How often do you attend shinto or holiness serv ices? Never 09/22/2021 Do [...] Answer Date Recorded PHQ-2 Score 2 09/22/2021 [facility] - Occupational Stress Questionnaire Answer [...] slept in a half-way (including now)? No 09/22/2021 [place] Depression Scale Answer Date Recorded [place] Depression Score 5 01/14/2021 Last EPDS Self [...] Info) Description 11/01/2023 8:00 AM CDT Appointment [facility] [address] [place] [address] Lauren Claudio PA-C [address] [place] [address] 11/03/2023 8:00 AM CDT Office Visit [address] [phone] Valery Veronica PA-C [address] [place] [address] 11/29/2023 8:00 AM CDT Office Visit [facility] [address] [place] [phone] Esha Grimm PA-C [address] [place] [address] 12/19/2023 11:30 AM CDT Hospital Encounter [facility] 9[address] [facility] 5th [place] [phone] Rocky Zepeda DO [address] [place] [address] 12/19/2023 11:30 AM CDT - 12/19/2023 12:00 PM CDT Surgery [facility] 909 [facility] [address] 5th [place] [phone] Rocky Zepeda DO 500 [place], [place] [address] Esophagoscopy, gastroscopy, duodenoscopy (EGD), combined 01/02/2024 8:00 AM CDT Office Visit [facility] [address] [place] [address] Lauren Claudio PA-C [address] [place] [address] Kelli Perez MD [address] [place] [address] Scheduled Procedures Name Priority Associated Diagnoses [...] Out COVID-19 05/17/2022 05/17/2022 05/17/2022 10:20 PM SURGICAL RESIDENT Rule Out COVID-19 06/09/2022 06/09/2022 06/09/2022 9:35 AM SURGICAL RESIDENT COVID-19 06/09/2022 06/09/2022 06/30/2022 11:4 1 PM SURGICAL RESIDENT Rule Out COVID-19 11/10/2022 11/10/2022 11/11/2022 12:17 PM CDT Rule Out COVID-19 03/07/2023 03/07/2023 03/07/2023 1:20 PM CDT Assessment Noted Time PHQ-9 Depression Total Score: 2 04/02/20 10:19 AM CDT documented as of this encounter Care Teams Remote Encoding Center Manager Relationship Specialty Start Date End Date Marija Edgar APRN TOWEL HEMMER PCP - General Nurse Practitioner 04/30/20 04/14/23 Esha Grimm PA-C [address] [place] [address] PCP - General Family Medicine 05/04/23 Lita Oseguera Personal Advocate & Liaison (PAL) 02/28/20 03/27/23 Marija Edgar APRN TOWEL HEMMER Assigned PCP 06/08/20 04/29/23 Keisha Dotson MD 909 [place] [address] Assigned Neuroscience Provider 06/04/20 04/01/23 Galo Burrell MD Assigned Heart and Vascular Provider 10/05/20 04/02/22 Diana Desir, [facility] [address] [facility] [place] [address] Pharmacist Pharmacist 04/17/21 Rain Galaviz PA-C [address] [place] [address] [place] [address] Physician Hem Marker Dermatology 04/28/21 Summer Lara MD [address] [place] [address] Assigned OBGYN Provider 05/31/21 Tavia Wyatt MD [address] [place] [address] Dermatology 07/14/21 Johnny Murillo MD [address] [place] [address] Assigned Musculoskeletal Provider 08/30/21 03/17/22 Erica Farrell APRN TOWEL HEMMER [address] [facility] [address] [place] [address] Nurse Practitioner Cardiovascular Disease 09/09/21 Tavai Wyatt MD Assigned Surgical Provider 11/29/21 05/07/22 [facility] 3033 [place] [address] Assigned MTM Pharmacist 01/02/22 Rich Barrett MD [address] [address] Physician Ophthalmology 01/21/22 Neil Kent MD 500 [place], [place] 4[address] Dermatology 02/24/22 [place] [address] [facility] [address] [place], [place] 5[address] Assigned Musculoskeletal Provider 03/20/22 08/13/22 Erica Farrell APRN TOWEL HEMMER 1700 [place] [address] Assigned Heart and Vascular Provider 04/03/22 04/16/22 Diana Desir, [facility] [address] [place], [place] [address] Assigned MTM Pharmacist 04/07/22 Jelena David OD [address] [facility] [place] [address] Assigned Surgical Provider 05/08/22 10/08/22 Galo Burrell MD Assigned Heart and Vascular Provider 04/17/22 06/11/22 Livan Sharif MD [address] [place], [place] [address] Cardiovascular Disease 05/14/22 Livan Sharif MD [address] [place] [address] Assigned Heart and Vascular Provider 06/12/22 07/23/22 Catherine Cm MD [address] [place], [place] [address] Cardiovascular Disease 07/21/22 Valery Veronica, PA-C 909 [place], [place] [address] Physician Hem Marker Dermatology 07/21/22 Catherine Cm MD [address] [place] [address] Assigned Heart and Vascular Provider 07/24/22 11/05/22 Johnny Murillo MD [address] [facility] [address] [place], [place] [address] Assigned Musculoskeletal Provider 08/14/22 10/08/22 Brea Quinn APRN TOWEL HEMMER 500 [facility], [place] [address] Nurse Practitioner Dermatology 09/21/22 Brea Quinn APRN TOWEL HEMMER 6401 [facility] [place], [place] [address] Assigned Surgical Provider 10/09/22 [place] [address] [facility] 300 [place], [place] [address] Assigned Musculoskeletal Provider 10/09/22 Livan Sharif MD [address], [facility] [address] [place] [address] Assigned Heart and Vascular Provider 11/06/22 11/12/22 Catherine Cm MD [address] [facility] [address] [place] [address] Assigned Heart and Vascular Provider 11/13/22 05/27/23 Sydnie Martinez RN Personal Advocate & Liaison (PAL) Family Medicine 03/28/23 07/31/23 Alfonso Renteria MD 5775 [facility] 200 [place], [place] [address] Assigned Neuroscience Provider 04/02/23 Cheng Todd PA-C [address] [place] [address] Assigned PCP 04/30/23 07/15/23 Radha Lomeli APRN TOWEL HEMMER [address] [place] [address] Assigned Heart and Vascular Provider 05/28/23 Jelena David OD [address] [facility] [place] [address] MD Ophthalmology 06/15/23 Pao Joseph, JV Personal Advocate & Liaison (PAL) Nurse 08/01/23 Esha Grimm PA-C [address] [place] [address] Assigned PCP 07/16/23 Valery Veronica PA-C [address] [place] [address] Physician Hem Marker Dermatology 09/19/23 Rey Tay MD [address] [place] [address] Gastroenterology 09/20/23 Rocky Zepeda DO [address] [place] [address] Physician Gastroenterology 09/20/23 Philip Dumont MD [address] [place] [address] Physician Ophthalmology 09/22/23 documented as of this encounter
--- OUTSIDE RECORDS SUMMARY | 2023-10-28 16:44 | XMS_ITS | Encounter Summary ---
Author Name Unknown Organization [place] Address [address] [place] [address] Care Team Providers Care Dental Office Coordinator Name Role Phone Lita Oseguera Unavailable Unavailable Marija Edgar APRN REGIONAL TRAINING MANAGER Primary Care Provider U mandaailMarija Callaway APRN REGIONAL TRAINING MANAGER Unavailable Unavail able Mynor Broussard MD Unavailable [phone] Keisha Dotson MD Unavailable [phone] Galo Burrell MD Unavailable Unavailable Diana Desir [facility] Unavailable [phone] Rain Galaviz PA-C Unavailable Summer Lara MD Unavailable [phone] Tavia Wyatt MD Unavailable Unavailable Johnny Murillo MD Unavailable Erica Farrell APRN REGIONAL TRAINING MANAGER Unavailable Tavia Wytat MD Unavailable Unavailable Diana Desir [facility] Unavailable [phone] Rich Barrett MD Unavailable [phone] Neil Kent MD Unavailable Roney Story DPM Unavailable [phone] Erica Farrell APRN REGIONAL TRAINING MANAGER Unavailable Diana Desir [facility] Unavailable [phone] Jelena David OD Unavailable Galo Burrell MD Unavailable Unavailable Livan Sharif MD Unavailable + Livan Sharif MD Unavailable + Catherine Cm MD Unavailable + Valery Veronica-C Unavailable [phone] Catherine Cm MD Unavailable + Johnny Murillo MD Unavailable [phone] Brea Quinn GRAIN SHOVELER REGIONAL TRAINING MANAGER Unavailable [phone] Brea Quinn GRAIN SHOVELER REGIONAL TRAINING MANAGER Unavailable [phone] Jose Francisco Johnson MD Unavailable + Livan Sharif MD Unavailable + IsCatherine hobbs MD Unavailable + Sydnie Martinez RN Unavailable Unavailable Alfonso Renteria MD Unavailable Esha Grimm-C Primary Care Provider Cheng Todd PA-C Unavailable Radha Lomeli GRAIN SHOVELER REGIONAL TRAINING MANAGER Unavailable [phone] Jelena David OD Unavailable Pao Joseph RN Unavailable Unavailable Esha Grimm PA-C Unavailable [phone] Valery Veronica PA-C Unavailable [phone] Rey Tay MD Unavailable Rocky Zepeda DO Unavailable Philip Dumont MD Unavailable [phone] Encounter Details Date Type Department Care Team (Late st Contact Info) Description 11/16/2021 [facility] Medical Advice [address] [address] Diana Desir, [facility] 3033 [place] [address] Social History Tobacco Use Types Packs/Day Years [...] How often do you attend religious or mosque serv ices? Never 09/22/2021 Do you belong [...] Answer Date Recorded PHQ-2 Score 2 09/22/2021 [facility] - [...] slept in a skilled nursing (including now)? No 09/22/2021 [place] Depression Scale Answer Date Recorded [place] Depression Score 5 01/14/2021 Last EPDS Self [...] [facility] Imaging [address] [place] [address] Lauren Claudio PA-C [address] [place], [place] [phone] 11/03/2023 8:00 AM CDT Office Visit [address] [address] Valery Veronica PA-C [address] [place] [address] 11/29/2023 8:00 AM CDT Office Visit [facility] [address] [place] [phone] Esha Grimm PA-C [address] [place] [phone] 12/19/2023 11:30 AM CDT Hospital Encounter [facility] [address] [place] [address] 5th [place] [phone] Rocky Zepeda, DO 500 [place] [address] 12/19/2023 11:30 AM CDT - 12/19/2023 12:[address] [facility] 909 [facility] [address] 5th [place] [address] Rocky Zepeda DO 500 [place] [address] Esophagoscopy, gastroscopy, duodenoscopy (EGD), combined 01/02/2024 8:00 AM CDT Office Visit [facility] [address] [place] [phone] Lauren Claudio, [place] [address] [place] [address] Kelli Perez MD [address] [facility] 106 [place], [place] [address] Scheduled Procedures Name Priority Associated Diagnoses Date/Ti [...] Out COVID-19 05/17/2022 05/17/2022 05/17/2022 10:20 PM FRUIT WASHER Rule Out COVID-19 06/09/2022 06/09/2022 06/09/2022 9:35 AM FRUIT WASHER COVID-19 06/09/2022 06/09/2022 06/30/2022 11:4 1 PM FRUIT WASHER Rule Out COVID-19 11/10/2022 11/10/2022 11/11/2022 12:17 PM CDT Rule Out COVID-19 03/07/2023 03/07/2023 03/07/2023 1:20 PM CDT Assessment Noted Time PHQ-9 Depression Total Score: 2 04/02/20 10:19 AM CDT documented as of this encounter Care Teams Dental Office Coordinator Relationship Specialty Start Date End Date Marija Edgar APRN REGIONAL TRAINING MANAGER PCP - General Nurse Practitioner 04/30/20 04/14/23 Esha Grimm, PAUcheC [address] [place] [address] PCP - General Family Medicine 05/04/23 Lita Oseguera Personal Advocate & Liaison (PAL) 02/28/20 03/27/23 Marija Edgar APRN REGIONAL TRAINING MANAGER Assigned PCP 06/08/20 04/29/23 Mynor Broussard MD [address] [address] Assigned Surgical Provider 06/01/20 11/28/21 Keisha Dotson MD 909 [place] [address] Assigned Neuroscience Provider 06/04/20 04/01/23 Galo Burrell MD Assigned Heart and Vascular Provider 10/05/20 04/02/22 Diana Desir, [facility] 30[address] [place], [place] [address] Pharmacist Pharmacist 04/17/21 Rain Galaviz PA-C [address] [place] [address] [place] [address] Physician Aerial Applicator Pilot Dermatology 04/28/21 Summer Lara MD [address] [place] [address] Assigned OBGYN Provider 05/31/21 2 Tavia Wyatt MD [address] [place] [address] Dermatology 07/14/21 Johnny Murillo MD [address] [facility] [address] [place] [address] Assigned Musculoskeletal Provider 08/30/21 03/17/22 Erica Farrell APRN REGIONAL TRAINING MANAGER 6405 [facility] [address] [place] [address] Nurse Practitioner Cardiovascular Disease 09/09/21 Tavia Wyatt MD Assigned Surgical Provider 11/29/21 05/07/22 Diana Desir, [facility] [address] [place] [address] Assigned MTM Pharmacist 01/02/22 Rich Barrett MD [address] 60[address] Physician Ophthalmology 01/21/22 Neil Kent MD [address] [place] [address] Dermatology 02/24/22 Roney Story DPM [address] [facility] [address] [place] [address] Assigned Musculoskeletal Provider 03/20/22 08/13/22 Erica Farrell APRN REGIONAL TRAINING MANAGER 1700 [place] [address] Assigned Heart and Vascular Provider 04/03/22 04/16/22 Diana Desir, [facility] 30[address] [place], [place] [address]17[address] Assigned MTM Pharmacist 04/07/22 Jelena David OD [address] [facility] [place] [address] Assigned Surgical Provider 05/08/22 10/08/22 Galo Burrell MD Assigned Heart and Vascular Provider 04/17/22 06/11/22 Livan Sharif MD [address] [place] [address] Cardiovascular Disease 05/14/22 Livan Sharif MD [address] [place] [address] Assigned Heart and Vascular Provider 06/12/22 07/23/22 Catherine Cm MD [address] [place] [address] Cardiovascular Disease 07/21/22 JeremíasValery PA-C 909 [place] [address] Physician Aerial Applicator Pilot Dermatology 07/21/22 Catherine Cm MD [address] [facility] [address] [place] [address] Assigned Heart and Vascular Provider 07/24/22 11/05/22 Johnny Murillo MD [facility] [address] 6077[address] Assigned Musculoskeletal Provider 08/14/22 10/08/22 Brea Quinn APRN REGIONAL TRAINING MANAGER [address] [place] [address] Nurse Practitioner Dermatology 09/21/22 Brea Quinn APRN REGIONAL TRAINING MANAGER [address] [place] [address] [facility] 101612 Assigned Surgical Provider 10/09/22 [place] [address] [place] [address] 8133[address] Assigned Musculoskeletal Provider 10/09/22 Livan Sharif MD [address] [place] [address] Assigned Heart and Vascular Provider 11/06/22 11/12/22 Catherine Cm MD [address] [place] [address] Assigned Heart and Vascular Provider 11/13/22 05/27/23 Sydnie Martinez, VJ Personal Advocate & Liaison (PAL) Family Medicine 03/28/23 07/31/23 Alfonso Renteria MD 5775 [facility] [address] 200 [place] [address] Assigned Neuroscience Provider 04/02/23 Cheng Todd PA-C [address] [place], [place] 99[address] Assigned PCP 04/30/23 07/15/23 Radha Lomeli APRN REGIONAL TRAINING MANAGER 6405 [facility] [address] [place] [address] Assigned Heart and Vascular Provider 05/28/23 Jelena David OD [address] [facility] [place] [address] Ophthalmology 06/15/23 Pao Joseph, VJ Personal Advocate & Liaison (PAL) Nurse 08/01/23 Esha Grimm PA-C [address] [place] [address] Assigned PCP 07/16/23 Valery Veronica PA-C 909 [place], [place] [address] Physician Aerial Applicator Pilot Dermatology 09/19/23 Rey Tay MD 909 [place] [address] Gastroenterology 09/20/23 Rocky Zepeda DO [address] [place] [address] Physician Gastroenterology 09/20/23 Philip Dumont MD [address] [place] [address] Physician Ophthalmology 09/22/23 documented as of this encounter
--- OUTSIDE RECORDS SUMMARY | 2023-10-28 16:44 | XMS_ITS | Encounter Summary ---
Author Name Unknown Organization [facility] Address [address] [place] [address] Care Team Providers Care Paper Sorter Name Role Phone Lita Oseguera Unavailable Unavailable Marija Edgar APRN HONING MACHINE SET UP OPERATOR TOOL Primary Care Provider U mandaailMarija Callaway APRN HONING MACHINE SET UP OPERATOR TOOL Unavailable Unavail able Mynor Broussard MD Unavailable [phone] Keisha Dotson MD Unavailable [phone] Galo Burrell MD Unavailable Unavailable Diana Desir [facility] Unavailable Rain Galaviz PA-C Unavailable Summer Lara MD Unavailable [phone] Tavia Wyatt MD Unavailable Unavailable Johnny Murillo MD Unavailable Erica Farrell APRN HONING MACHINE SET UP OPERATOR TOOL Unavailable Tavia Wyatt MD Unavailable Unavailable Diana Desir [facility] Unavailable [phone] Rich Barrett MD Unavailable [phone] Neil Kent MD Unavailable Roney Story DPM Unavailable [phone] Erica Farrell APRN HONING MACHINE SET UP OPERATOR TOOL Unavailable Diana Desir [facility] Unavailable [phone] Jelena David OD Unavailable Galo Burrell MD Unavailable Unavailable Livan Sharif MD Unavailable + Livan Sharif MD Unavailable + Catherine Cm MD Unavailable + Valery Veronica-C Unavailable [phone] Catherine Cm MD Unavailable + Johnny Murillo MD Unavailable [phone] Brea Quinn SPEEDOMETER MECHANIC HONING MACHINE SET UP OPERATOR TOOL Unavailable [phone] Brea Quinn SPEEDOMETER MECHANIC HONING MACHINE SET UP OPERATOR TOOL Unavailable [phone] Jose Francisco Johnson MD Unavailable + Livan Sharif MD Unavailable + IsCatherine hobbs MD Unavailable + Sydnie Martinez RN Unavailable Unavailable Alfonso Renteria MD Unavailable Esha Grimm-C Primary Care Provider Cheng [place] PA-C Unavailable Radha Lomeli SPEEDOMETER MECHANIC HONING MACHINE SET UP OPERATOR TOOL Unavailable [phone] Jelena David OD Unavailable Pao Joseph RN Unavailable Unavailable Esha Grimm-C Unavailable Valery Veronica PA-C Unavailable [phone] Rey Tay MD Unavailable Rocky Zepeda DO Unavailable Philip Dumont MD Unavailable [phone] Reason for Visit * Reason Onset Date Comments Refill Request 10/31/2021 sertraline Encounter Details Date Type Department Care Team (Late st Contact Info) Description 10/31/[address] [address] Marija Edgar APRN HONING MACHINE SET UP OPERATOR TOOL Refill Request (sertraline) Social History Tobacco Use [...] How often do you attend episcopalian or episcopal serv ices? Never 09/22/2021 Do [...] Answer Date Recorded PHQ-2 Score 2 09/22/2021 [facility] - Occupational Stress Questionnaire Answer Date [...] in a fdc (including now)? No 09/22/2021 Alamo Depression Scale Answer Date Recorded Alamo Depression Score 5 01/14/2021 Last EPDS Self [...] - 11/02/2021 8:58 AM CDT Approved per [facility] CPA. Luis Alberto ValderramaD Medication Therapy Management Provider, [facility] Pager: [phone] * Telephone Encounter - Aleyda Scott RN [...] daily. Pt has follow up tomorrow with [facility] pharmacist to continue to work on taper. Appointments in Next Year Nov 03, 2021 3:30 PM Pharmacist Visit with Diana Desir RPH [facility] ([facility] ) [phone] Informed patient that will route refill request [...] can be reached at: Other phone number: [phone] Best Time: ANYTIME Can we leave a detailed message on this number? YES Call taken on 10/31/2021 at 10:31 AM by Amalia Deluca documented in this encounter Plan of Treatment Upcoming Encounters Date Type Department Care Team (Late st Contact Info) Description 11/01/2023 8:00 AM CDT Appointment [facility] Imaging [address] [facility] [place] [address] Lauren Claudio PA-C [address] [place], [place] [phone] 11/03/2023 8:00 AM CDT Office Visit [address] [phone] Valery Veronica PA-C 909 [place] [address] 11/29/2023 8:00 AM CDT Office Visit [facility] [address] [place] [phone] Esha Grimm PA-C [address] [place] [address] 12/19/2023 11:30 AM CDT Hospital Encounter [facility] 909 [facility] 5th [place] [phone] Rocky Zepeda, [address] [place] [address] 12/19/2023 11:30 AM CDT - 12/19/2023 12:00 PM CDT Surgery [facility] 909 [facility] [address] 5th [place] [phone] Rocky Zepeda, DO 500 [facility] [place], [place] 767225 Esophagoscopy, gastroscopy, duodenoscopy (EGD), combined 01/02/2024 8:00 AM CDT Office Visit [facility] [address] [place] [address] Lauren Claudio PA-C [address] [place] [address] Kelli Perez MD [address] [place] [address] [phone] Scheduled Procedures Name Priority Associated Diagnoses Date/Ti ar ESOPHAGOGASTRODUODENOSCOPY Eosinophilic esophagitis Esophageal dysphagia 12/19/2023 11:30 AM CDT documented as of this encounter Visit Diagnoses Diagnosis Moderate major depression (H)- Primary Major depressive disorder, single episode, moderate Eosinophilic esophagitis Esophageal dysphagia Dysphagia, pharyngoesophageal phase documented in this encounter Additional Health Concerns Infection Onset Date Last Indicated Resolved Time Rule Out COVID-19 12/18/2021 12/18/2021 12/19/2021 11:34 AM CDT Rule Out COVID-19 02/24/2022 02/24/2022 02/25/2022 1:08 PM CDT Rule Out COVID-19 04/26/2022 04/26/2022 04/26/2022 6:47 AM CDT Rule Out COVID-19 05/17/2022 05/17/2022 05/17/2022 10:20 PM FILTER FILLER Rule Out COVID-19 06/09/2022 06/09/202206/09/2022 9:35 AM FILTER FILLER COVID-19 06/09/2022 06/09/2022 06/30/2022 11:4 1 PM FILTER FILLER Rule Out COVID-19 11/10/2022 11/10/2022 11/11/2022 12:17 PM CDT Rule Out COVID-19 03/07/2023 03/07/2023 03/07/2023 1:20 PM CDT Assessment Noted Time PHQ-9 Depression Total Score: 2 04/02/20 10:19 AM CDT documented as of this encounter Care Teams Paper Sorter Relationship Specialty Start Date End Date Marija Edgar APRN HONING MACHINE SET UP OPERATOR TOOL PCP - General Nurse Practitioner 04/30/20 04/14/23 Esha Grimm PAUcheC [address] [place] [phone] PCP - General Family Medicine 05/04/23 Lita Oseguera Personal Advocate & Liaison (PAL) 02/28/20 03/27/23 Marija Edgar APRN HONING MACHINE SET UP OPERATOR TOOL Assigned PCP 06/08/20 04/29/23 Mynor Broussard MD [address] [address] Assigned Surgical Provider 06/01/20 11/28/21 Keisha Dotson MD 909 [place] [address] Assigned Neuroscience Provider 06/04/20 04/01/23 Galo Burrell MD Assigned Heart and Vascular Provider 10/05/20 04/02/22 Diana Desir, [facility] 3033 [place], [place] [phone] Pharmacist Pharmacist 04/17/21 Rain Galaviz PA-C [address] [place] [address] DR [facility] [address] Physician Pilot Can Router Dermatology 04/28/21 Summer Lara MD [address] [place] [address] Assigned OBGYN Provider 05/31/21 Tavia Wyatt MD [address] [place] [address] Dermatology 07/14/21 Johnny Murillo MD [address] [facility] [address] [place] [address] Assigned Musculoskeletal Provider 08/30/21 03/17/22 Erica Farrell APRN HONING MACHINE SET UP OPERATOR TOOL [address] [facility] [address] [place] [address] Nurse Practitioner Cardiovascular Disease 09/09/21 Tavia Wyatt MD Assigned Surgical Provider 11/29/21 05/07/22 Diana Desir, [facility] [address] [place] [address] Assigned MTM Pharmacist 01/02/22 Rich Barrett MD [address] 382455 Physician Ophthalmology 01/21/22 Neil Kent MD [address] [place] [address] 137365 Dermatology 02/24/22 [place] DPM [address] [facility] [address] [place] [address] Assigned Musculoskeletal Provider 03/20/22 08/13/22 Erica Farrell APRN HONING MACHINE SET UP OPERATOR TOOL 1700 [place] [address] Assigned Heart and Vascular Provider 04/03/22 04/16/22 [facility] 3033 [place] [address] Assigned MTM Pharmacist 04/07/22 Jelena David OD [address] [place] [address] Assigned Surgical Provider 05/08/22 10/08/22 Galo Burrell MD Assigned Heart and Vascular Provider 04/17/22 06/11/22 Livan Sharif MD [address] [place] [address] [place] [address] Cardiovascular Disease 05/14/22 Livan Sharif MD [address] [place] [address] [place] [address] Assigned Heart and Vascular Provider 06/12/22 07/23/22 Catherine Cm MD [address] [place] [address] [place] 282125 Cardiovascular Disease 07/21/22 Valery Veronica PA-C 9 [place] [address] Physician Pilot Can Router Dermatology 07/21/22 Catherine Cm MD [address] [place] [address] [place] [address] Assigned Heart and Vascular Provider 07/24/22 11/05/22 Johnny Murillo MD [address] [place] [address] 425434 Assigned Musculoskeletal Provider 08/14/22 10/08/22 Brea Quinn APRN HONING MACHINE SET UP OPERATOR TOOL [address] [place] [address] 624795 Nurse Practitioner Dermatology 09/21/22 Brea Quinn APRN HONING MACHINE SET UP OPERATOR TOOL [address] [place] [address] Assigned Surgical Provider 10/09/22 [place] [address] 522167 Assigned Musculoskeletal Provider 10/09/22 Livan Sharif MD [address] [place] [address] [place] 665895 Assigned Heart and Vascular Provider 11/06/22 11/12/22 Catherine Cm MD [address] [place] [address] [place] 191625 Assigned Heart and Vascular Provider 11/13/22 05/27/23 Sydnie Martinez, VJ Personal Advocate & Liaison (PAL) Family Medicine 03/28/23 07/31/23 Alfonso Renteria MD [address] [facility] [address] [place] [address] Assigned Neuroscience Provider 04/02/23 Cheng [place] PA-C [address] [place], [place] [phone] Assigned PCP 04/30/23 07/15/23 Radha Lomeli APRN HONING MACHINE SET UP OPERATOR TOOL [address] [facility] [address] [place] [address] Assigned Heart and Vascular Provider 05/28/23 Jelena David OD [facility] [place] [address] Ophthalmology 06/15/23 Pao Joseph, VJ Personal Advocate & Liaison (PAL) Nurse 08/01/23 Esha Grimm PA-C [address] [place] [phone] Assigned PCP 07/16/23 Valery Veronica PA-C [address] [place] [address] 656875 Physician Pilot Can Router Dermatology 09/19/23 Rey Tay MD [address] [place] [address] 514415 Gastroenterology 09/20/23 Rocky Zepeda DO [address] [place] [address] [phone] Physician Gastroenterology 09/20/23 Philip Dumont MD [address] [place] [address] 526275 Physician Ophthalmology 09/22/23 documented as of this encounter
--- OUTSIDE RECORDS SUMMARY | 2023-10-28 16:44 | XMS_ITS | Encounter Summary ---
Author Name Unknown Organization [facility] Address [address] [place] [address] Care Team Providers Care Flexographic Printing Press Operator Name Role Phone Lita Oseguera Unavailable Unavailable Marija Edgar APRN PEDIATRIC OPHTHALMOLOGIST Primary Care Provider U mandaailMarija Callaway APRN PEDIATRIC OPHTHALMOLOGIST Unavailable Unavail able Mynor Broussard MD Unavailable [phone] Keisha Dotson MD Unavailable Galo Burrell MD Unavailable Unavailable Diana Desir [facility] Unavailable Rain Galaviz PA-C Unavailable Summer Lara MD Unavailable [phone] Tavia Wyatt MD Unavailable Unavailable Johnny Murillo MD Unavailable Erica Farrell APRN PEDIATRIC OPHTHALMOLOGIST Unavailable Tavia Wyatt MD Unavailable Unavailable Diana Desir [facility] Unavailable [phone] Rich Barrett MD Unavailable [phone] Neil Kent MD Unavailable Roney Story DPM Unavailable [phone] Erica Farrell APRN PEDIATRIC OPHTHALMOLOGIST Unavailable Diana Desir [facility] Unavailable [phone] Jelena David OD Unavailable Galo Burrell MD Unavailable Unavailable Livan Sharif MD Unavailable + Livan Sharif MD Unavailable + Catherine Cm MD Unavailable + Valery Veronica-C Unavailable [phone] Catherine Cm MD Unavailable + Johnny Murillo MD Unavailable [phone] Brea Quinn FOREST BOTANY INSTRUCTOR PEDIATRIC OPHTHALMOLOGIST Unavailable [phone] Brea Quinn FOREST BOTANY INSTRUCTOR PEDIATRIC OPHTHALMOLOGIST Unavailable [phone] Jose Francisco Johnson MD Unavailable + Livan Sharif MD Unavailable + IsCatherine hobbs MD Unavailable + Sydnie Martinez RN Unavailable Unavailable Alfonso Renteria MD Unavailable Esha Grimm-C Primary Care Provider Cheng [place] PA-C Unavailable Radha Lomeli FOREST BOTANY INSTRUCTOR PEDIATRIC OPHTHALMOLOGIST Unavailable [phone] Jelena David OD Unavailable [phone] Pao Joseph RN Unavailable Unavailable Esha Grimm PA-C Unavailable [phone] Valery Veronica PA-C Unavailable [phone] Rey Tay MD Unavailable Rocky Zepeda DO Unavailable Philip Dumont MD Unavailable [phone] Encounter Details Date Type Department Care Team (Late st Contact Info) Description 10/17/2021 MyC Medical Advice [address] [address] Diana Desir, [facility] [address] [place] [address] Social History Tobacco Use Types Packs/Day Years [...] How often do you attend druze or sikhism serv ices? Never 09/22/2021 Do [...] Answer Date Recorded PHQ-2 Score 2 09/22/2021 [facility] - Occupational Stress Questionnaire Answer Date [...] in a detention (including now)? No 09/22/2021 Kapaa Depression Scale Answer Date Recorded Kapaa Depression Score 5 01/14/2021 Last EPDS Self [...] Info) Description 11/01/2023 8:00 AM CDT Appointment [facility] [address] [place] [address] Lauren Claudio PA-C [address] [place] [address] 11/03/2023 8:00 AM CDT Office Visit [address] [phone] Valery Veronica PA-C [address] [place] [address] 11/29/2023 8:00 AM CDT Office Visit [facility] [address] [place] [phone] Esha Grimm PA-C [address] [place] [phone] 12/19/2023 11:30 AM CDT Hospital Encounter [facility] 909 [facility] 5th [place] [phone] Rocky Zepeda, DO [address] [place] [address], [place] [address] 12/19/2023 11:30 AM CDT - 12/19/2023 12:00 PM CDT Surgery [facility] [address] [facility] [address] 5th [place] [address] Rocky Zepeda DO 500 [place] [address] Esophagoscopy, gastroscopy, duodenoscopy (EGD), combined 01/02/2024 8:00 AM CDT Office Visit [facility] [address] [place] [phone] Lauren Claudio PA-C [address] [place] [address] Kelli Perez MD [address] [address] Scheduled Procedures Name Priority Associated [...] Out COVID-19 05/17/2022 05/17/2022 05/17/2022 10:20 PM HEEL PACKER Rule Out COVID-19 06/09/2022 06/09/2022 06/09/2022 9:35 AM HEEL PACKER COVID-19 06/09/2022 06/09/2022 06/30/2022 11:4 1 PM HEEL PACKER Rule Out COVID-19 11/10/2022 11/10/2022 11/11/2022 12:17 PM CDT Rule Out COVID-19 03/07/2023 03/07/2023 03/07/2023 1:20 PM CDT Assessment Noted Time PHQ-9 Depression Total Score: 2 04/02/20 10:19 AM CDT documented as of this encounter Care Teams Flexographic Printing Press Operator Relationship Specialty Start Date End Date Marija Edgar APRN PEDIATRIC OPHTHALMOLOGIST PCP - General Nurse Practitioner 04/30/20 04/14/23 Esha Grimm PAUcheC [address] [place] [address] PCP - General Family Medicine 05/04/23 Lita Oseguera Personal Advocate & Liaison (PAL) 02/28/20 03/27/23 Marija Edgar APRN PEDIATRIC OPHTHALMOLOGIST Assigned PCP 06/08/20 04/29/23 Mynor Broussard MD [address] [address] Assigned Surgical Provider 06/01/20 11/28/21 Keisha Dotson MD 909 [place] [address] Assigned Neuroscience Provider 06/04/20 04/01/23 Galo Burrell MD Assigned Heart and Vascular Provider 10/05/20 04/02/22 Diana Desir, [facility] 30[address] [place] [address] Pharmacist Pharmacist 04/17/21 Rain Galaviz PA-C [address] [place] [address] [address] [place] [address] Physician Automotive Starter Repairer Dermatology 04/28/21 Summer Lara MD [address] [place] [address] Assigned OBGYN Provider 05/31/21 2 Tavia Wyatt MD [address] [place] [address] Dermatology 07/14/21 Johnny Murillo MD [address] [facility] [address] [place] [address] Assigned Musculoskeletal Provider 08/30/21 03/17/22 Erica Farrell APRN PEDIATRIC OPHTHALMOLOGIST [address] [facility] [address] [place] [address] Nurse Practitioner Cardiovascular Disease 09/09/21 Tavia Wyatt MD Assigned Surgical Provider 11/29/21 05/07/22 Diana Desir, [facility] [address] [place] [address] Assigned MTM Pharmacist 01/02/22 Rich Barrett MD [address] [phone] Physician Ophthalmology 01/21/22 Neil Kent MD [address] [place] [address] 795495 Dermatology 02/24/22 R[place]PM [address] [place] [address] Assigned Musculoskeletal Provider 03/20/22 08/13/22 Erica Farrell APRN PEDIATRIC OPHTHALMOLOGIST 1700 [place] [address] Assigned Heart and Vascular Provider 04/03/22 04/16/22 Diana Desir, [facility] [address] [place], [place] 564356 Assigned MTM Pharmacist 04/07/22 Jelena David OD [address] [place] [address] Assigned Surgical Provider 05/08/22 10/08/22 Galo Burrell MD Assigned Heart and Vascular Provider 04/17/22 06/11/22 Livan Sharif MD [address] [address] [place] [address] Cardiovascular Disease 05/14/22 Livan Sharif MD [address] [place] [address] [place] [address] Assigned Heart and Vascular Provider 06/12/22 07/23/22 Catherine Cm MD [address] [address] [place] [address] Cardiovascular Disease 07/21/22 Valery Veronica, PAUcheC [address] [place] [address] Physician Automotive Starter Repairer Dermatology 07/21/22 Catherine Cm MD [address] [facility] [address] [place] [address] Assigned Heart and Vascular Provider 07/24/22 11/05/22 Johnny Murillo MD [facility] [address] 852874 Assigned Musculoskeletal Provider 08/14/22 10/08/22 Brea Quinn APRN PEDIATRIC OPHTHALMOLOGIST [address] [place] [address] 855585 Nurse Practitioner Dermatology 09/21/22 Brea Quinn APRN PEDIATRIC OPHTHALMOLOGIST [address] [place] [address] [place] 918432 Assigned Surgical Provider 10/09/22 [place] [address] [place] [address] 183127 Assigned Musculoskeletal Provider 10/09/22 Livan Sharif MD [address], [facility] [address] [place] 05[address]85 Assigned Heart and Vascular Provider 11/06/22 11/12/22 Catherine Cm MD [address] [facility] [place] 570515 Assigned Heart and Vascular Provider 11/13/22 05/27/23 Sydnie Martinez RN Personal Advocate & Liaison (PAL) Family Medicine 03/28/23 07/31/23 Alfonso Renteria MD 5775 [facility] [address] [place] [address] Assigned Neuroscience Provider 04/02/23 Cheng [place] PA-C [address] [place] [address] Assigned PCP 04/30/23 07/15/23 Radha Lomeli APRN PEDIATRIC OPHTHALMOLOGIST 6405 [facility] [address] [place] [address] Assigned Heart and Vascular Provider 05/28/23 Jelena David OD [address] [place] [address] Ophthalmology 06/15/23 Pao Joseph, VJ Personal Advocate & Liaison (PAL) Nurse 08/01/23 Esha Grimm PA-C [address] [place] [address] Assigned PCP 07/16/23 Valery Veronica PA-C [address] [place], [place] 289295 Physician Automotive Starter Repairer Dermatology 09/19/23 Rey Tay MD 909 [place], [place] [address]1985 Gastroenterology 09/20/23 Rocky Zepeda DO [address] [place] [address] Physician Gastroenterology 09/20/23 Philip Dumont MD [address] [place] [address] Physician Ophthalmology 09/22/23 documented as of this encounter
--- OUTSIDE RECORDS SUMMARY | 2023-10-28 16:44 | XMS_ITS | Encounter Summary ---
Author Name Unknown Organization [facility] Address [address] [place] [address] Care Team Providers Care Assistant Media Planner Name Role Phone Lita Oseguera Unavailable Unavailable Marija Edgar APRN SOFTWARE ENGINEER SALES Primary Care Provider U mandaailMarija Callaway APRN SOFTWARE ENGINEER SALES Unavailable Unavail able Mynor Broussard MD Unavailable [phone] Keisha Dotson MD Unavailable Galo Burrell MD Unavailable Unavailable Diana Desir [facility] Unavailable Rain Galaviz PA-C Unavailable [phone] Summer Lara MD Unavailable [phone] Tavia Wyatt MD Unavailable Unavailable Johnny Murillo MD Unavailable [phone] Erica Farrell APRN SOFTWARE ENGINEER SALES Unavailable Tavia Wyatt MD Unavailable Unavailable Diana Desir [facility] Unavailable [phone] Rich Barrett MD Unavailable [phone] Neil Kent MD Unavailable Roney Story DPM Unavailable [phone] Erica Farrell APRN SOFTWARE ENGINEER SALES Unavailable Diana Desir [facility] Unavailable [phone] Jelena David OD Unavailable Galo Burrell MD Unavailable Unavailable Livan Sharif MD Unavailable + Livan Sharif MD Unavailable + Catherine Cm MD Unavailable + Valery Veronica-C Unavailable [phone] Catherine Cm MD Unavailable + Johnny Murillo MD Unavailable [phone] Brea Quinn IT ENGINEER SOFTWARE ENGINEER SALES Unavailable [phone] Brea Quinn IT ENGINEER SOFTWARE ENGINEER SALES Unavailable [phone] Jose Francisco Johnson MD Unavailable + Livan Sharif MD Unavailable + IsCatherine hobbs MD Unavailable + Sydnie Martinez RN Unavailable Unavailable Alfonso Renteria MD Unavailable Esha Grimm-C Primary Care Provider Cheng Todd PA-C Unavailable Radha Lomeli IT ENGINEER SOFTWARE ENGINEER SALES Unavailable [phone] Jelena David OD Unavailable Pao Joseph RN Unavailable Unavailable Esha Grimm PA-C Unavailable [phone] Valery Veronica PA-C Unavailable [phone] Rey Tay MD Unavailable Rocky Zepeda DO Unavailable Philip Dumont MD Unavailable [phone] Encounter Details Date Type Department Care Team (Late st Contact Info) Description 10/28/2021 MyC Medical Advice [facility] [address] [facility] [address] [place] [address] Erica Farrell APRN SOFTWARE ENGINEER SALES [address] [place] [address] Social History Tobacco Use Types Packs/Day Years [...] How often do you attend uatsdin or sikh serv ices? Never 09/22/2021 Do [...] Recorded PHQ-2 Score 2 [facility] - [...] a nursing home (including now)? No 09/22/2021 [place] Depression Scale Answer Date Recorded [place] Depression Score 5 01/14/2021 Last EPDS Self [...] CDT Appointment [facility] [address] [facility] [address] Lauren Claudio PA-C [address] [place] [address] 11/03/2023 8:00 AM CDT Office Visit [address] [phone] Valery Veronica PA-C [address] [place] [address] 11/29/2023 8:00 AM CDT Office Visit [facility] [address] [place] [phone] Esha Grimm PA-C [address] [place] [phone] 12/19/2023 11:30 AM CDT Hospital Encounter [address] 5th [place] [phone] Rocky Zepeda DO 500 [place] [address] 12/19/2023 11:30 AM CDT - 12/19/2023 12:00 PM CDT Surgery [facility] [address] [facility] [address] 5th [place] [phone] Rocky Zepeda DO 500 [place] [address] Esophagoscopy, gastroscopy, duodenoscopy (EGD), combined 01/02/2024 8:00 AM CDT Office Visit [facility] [address] [place] [phone] Lauren Claudio PA-C [address] [place] [address] [phone] Kelli Perez MD [address] [address] Scheduled Procedures Name Priority Associated [...] Out COVID-19 05/17/2022 05/17/2022 05/17/2022 10:20 PM FIELD TECH Rule Out COVID-19 06/09/2022 06/09/2022 06/09/2022 9:35 AM FIELD TECH COVID-19 06/09/2022 06/09/2022 06/30/2022 11:4 1 PM FIELD TECH Rule Out COVID-19 11/10/2022 11/10/2022 11/11/2022 12:17 PM CDT Rule Out COVID-19 03/07/2023 03/07/2023 03/07/2023 1:20 PM CDT Assessment Noted Time PHQ-9 Depression Total Score: 2 04/02/20 10:19 AM CDT documented as of this encounter Care Teams Assistant Media Planner Relationship Specialty Start Date End Date Marija Edgar APRN SOFTWARE ENGINEER SALES PCP - General Nurse Practitioner 04/30/20 04/14/23 Esha Grimm PA-C [address] [place] [address] PCP - General Family Medicine 05/04/23 Lita Oseguera Personal Advocate & Liaison (PAL) 02/28/20 03/27/23 Marija Edgar APRN SOFTWARE ENGINEER SALES Assigned PCP 06/08/20 04/29/23 Mynor Broussard MD [address] [address] Assigned Surgical Provider 06/01/20 11/28/21 Keisha Dotson MD 909 [place], [place] 897345 Assigned Neuroscience Provider 06/04/20 04/01/23 Galo Burrell MD Assigned Heart and Vascular Provider 10/05/20 04/02/22 [facility] 30[address] [place], [place] 114576 Pharmacist Pharmacist 04/17/21 Rain Galaviz PA-C [address] [place] [address] [place] [address] Physician Overlock Sleeve Setter Dermatology 04/28/21 Summer Lara MD [address] [place] [address] Assigned OBGYN Provider 05/31/21 2 Tavia Wyatt MD [address] [place] [address] Dermatology 07/14/21 Johnny Murillo MD [address] [facility] [address] [place] [address] Assigned Musculoskeletal Provider 08/30/21 03/17/22 Erica Farrell APRN SOFTWARE ENGINEER SALES [address] [facility] [address] [place] [address] Nurse Practitioner Cardiovascular Disease 09/09/21 Tavia Wyatt MD Assigned Surgical Provider 11/29/21 05/07/22 Diana Desir, [facility] [address] [place] [address] Assigned MTM Pharmacist 01/02/22 Rich Barrett MD [address] 689505 Physician Ophthalmology 01/21/22 Neil Kent MD [address] [place] [address] 769285 Dermatology 02/24/22 Roney Stoyr DPM [address] [facility] [address] [place], [place] 0[address]557 Assigned Musculoskeletal Provider 03/20/22 08/13/22 Erica Farrell APRN SOFTWARE ENGINEER SALES [address] [place] [address] Assigned Heart and Vascular Provider 04/03/22 04/16/22 Diana Desir, [facility] [address] [place] [address] Assigned MTM Pharmacist 04/07/22 Jelena David OD [address] [facility] [place] [address] Assigned Surgical Provider 05/08/22 10/08/22 Galo Burrell MD Assigned Heart and Vascular Provider 04/17/22 06/11/22 Livan Sharif MD [address] [place] [address] [place] [address] Cardiovascular Disease 05/14/22 Livan Sharif MD [address] [place] [address] [place] [address] Assigned Heart and Vascular Provider 06/12/22 07/23/22 Catherine Cm MD [address] [address] [place] [address] Cardiovascular Disease 07/21/22 Valery Veronica PA-C 909 [place] [address] Physician Overlock Sleeve Setter Dermatology 07/21/22 Catherine Cm MD [address] [facility] [address] [place] [address] Assigned Heart and Vascular Provider 07/24/22 11/05/22 Johnny Murillo MD [facility] [address] [address] Assigned Musculoskeletal Provider 08/14/22 10/08/22 Brea Quinn APRN SOFTWARE ENGINEER SALES [address] [place] [address] 620855 Nurse Practitioner Dermatology 09/21/22 Brea Quinn APRN SOFTWARE ENGINEER SALES [address] [place] [address] [facility] [place] 493092 Assigned Surgical Provider 10/09/22 [place] [address] [place] [address] [address] Assigned Musculoskeletal Provider 10/09/22 Livan Sharif MD [address] [place], [place] [address] [place] [address]36[address] Assigned Heart and Vascular Provider 11/06/22 11/12/22 Catherine Cm MD [address] [place] [address] [place] 476225 Assigned Heart and Vascular Provider 11/13/22 05/27/23 Sydnie Martinez, VJ Personal Advocate & Liaison (PAL) Family Medicine 03/28/23 07/31/23 Alfonso Renteria MD [address] [facility] [address] [place] [address] Assigned Neuroscience Provider 04/02/23 Cheng Todd PA-C [address] [place], [place] [phone] Assigned PCP 04/30/23 07/15/23 Radha Lomeli APRN SOFTWARE ENGINEER SALES [address] [place] [address] Assigned Heart and Vascular Provider 05/28/23 Jelena David OD [address] [facility] [place] [address] Ophthalmology 06/15/23 Pao Joseph, VJ Personal Advocate & Liaison (PAL) Nurse 08/01/23 Esha Grimm PA-C [address] [place] [phone] Assigned PCP 07/16/23 Valery Veronica PA-C [address] [place] [address] 342815 Physician Overlock Sleeve Setter Dermatology 09/19/23 Rey Tay MD 9 [place] [address] Gastroenterology 09/20/23 Rocky Zepeda DO [address] [place] [address] Physician Gastroenterology 09/20/23 Philip Dumont MD [address] [place] [address] Physician Ophthalmology 09/22/23 documented as of this encounter
--- OUTSIDE RECORDS SUMMARY | 2023-10-28 16:44 | XMS_ITS | Encounter Summary ---
Author Name Unknown Organization [facility] Address [address] [place] [address] Care Team Providers Care Club Room Attendant Name Role Phone Lita Oseguera Unavailable Unavailable Marija Edgar APRN COMPOSITE LAYUP WORKER Primary Care Provider U mandaailMarija Callaway APRN COMPOSITE LAYUP WORKER Unavailable Unavail able Mynor Broussard MD Unavailable [phone] Keisha Dotson MD Unavailable Galo Burrell MD Unavailable Unavailable Diana Desir [facility] Unavailable Rain Galaviz PA-C Unavailable Summer Lara MD Unavailable [phone] Tavia Wyatt MD Unavailable Unavailable Johnny Murillo MD Unavailable Erica Farrell APRN COMPOSITE LAYUP WORKER Unavailable Tavia Wyatt MD Unavailable Unavailable Diana Desir [facility] Unavailable [phone] Rich Barrett MD Unavailable [phone] Neil Kent MD Unavailable Roney Story DPM Unavailable [phone] Erica Farrell APRN COMPOSITE LAYUP WORKER Unavailable Diana Desir [facility] Unavailable [phone] Jelena David OD Unavailable Galo Burrell MD Unavailable Unavailable Livan Sharif MD Unavailable + Livan Sharif MD Unavailable + Catherine Cm MD Unavailable + Valery Veronica-C Unavailable [phone] Catherine Cm MD Unavailable + Johnny Murillo MD Unavailable [phone] Brea Quinn DESKTOP ANALYST COMPOSITE LAYUP WORKER Unavailable [phone] Brea Quinn DESKTOP ANALYST COMPOSITE LAYUP WORKER Unavailable [phone] Jose Francisco Johnson MD Unavailable + Livan Sharif MD Unavailable + IsCatherine hobbs MD Unavailable + Sydnie Martinez RN Unavailable Unavailable Alfonso Renteria MD Unavailable Esha Grimm-C Primary Care Provider Cheng Todd PA-C Unavailable Radha Lomeli DESKTOP ANALYST COMPOSITE LAYUP WORKER Unavailable [phone] Jelena David OD Unavailable Pao Joseph RN Unavailable Unavailable Esha Grimm PA-C Unavailable [phone] Valery Veronica PA-C Unavailable [phone] Rey Tay MD Unavailable Rocky Zepeda DO Unavailable Philip Dumont MD Unavailable [phone] Encounter Details Date Type Department Care Team (Late st Contact Info) Description 11/04/2021 MyC Medical Advice [address] [address] Diana Desir, [facility] [address] [place] [address] Social History Tobacco Use Types Packs/Day Years [...] How often do you attend scientologist or worship serv ices? Never 09/22/2021 Do you belong [...] PHQ-2 Score 2 09/[facility]/2021 [facility] - Occupational Stress Questionnaire [...] in a jail (including now)? No 09/22/2021 [place] Depression Scale Answer Date Recorded [...] [facility] [address] [place] [address] Lauren Claudio PA-C [address] [place], [place] [phone] 11/03/2023 8:00 AM CDT Office Visit [address] [phone] Valery Veronica PA-C [address] [place] [address] 11/29/2023 8:00 AM CDT Office [facility] [address] [place] [phone] Esha Grimm PA-C [address] [place] [phone] 12/19/2023 11:30 AM CDT Hospital Encounter [facility] [address] [place] [address] 5th [place] [phone] Rocky Zepeda, DO 500 [place] [address] 12/19/2023 11:30 AM CDT - 12/19/2023 12:00 PM CDT Surgery [facility] [address] [facility] [address] 5th [place] [address] Rocky Zepeda DO 500 [place] [address] Esophagoscopy, gastroscopy, duodenoscopy (EGD), combined 01/02/2024 8:00 AM CDT Office Visit [facility] [address] [place] [phone] Lauren Claudio, ROV[place] [address] [place] [address] Kelli Perez MD [address] [facility] 106 [place], [place] 185354 Scheduled Procedures Name Priority Associated Diagnoses Date/Ti [...] Out COVID-19 05/17/2022 05/17/2022 05/17/2022 10:20 PM PURCHASING AGENT Rule Out COVID-19 06/09/2022 06/09/2022 06/09/2022 9:35 AM PURCHASING AGENT COVID-19 06/09/2022 06/09/2022 06/30/2022 11:4 1 PM PURCHASING AGENT Rule Out COVID-19 11/10/2022 11/10/2022 11/11/2022 12:17 PM CDT Rule Out COVID-19 03/07/2023 03/07/2023 03/07/2023 1:20 PM CDT Assessment Noted Time PHQ-9 Depression Total Score: 2 04/02/20 10:19 AM CDT documented as of this encounter Care Teams Club Room Attendant Relationship Specialty Start Date End Date Marija Edgar APRN COMPOSITE LAYUP WORKER PCP - General Nurse Practitioner 04/30/20 04/14/23 Esha Grimm, PAUcheC [address] [place] [address] PCP - General Family Medicine 05/04/23 Lita Oseguera Personal Advocate & Liaison (PAL) 02/28/20 03/27/23 Marija Edgar APRN COMPOSITE LAYUP WORKER Assigned PCP 06/08/20 04/29/23 Mynor Broussard MD [address] [address] Assigned Surgical Provider 06/01/20 11/28/21 Keisha Dotson MD 909 [place] [address] Assigned Neuroscience Provider 06/04/20 04/01/23 Galo Burrell MD Assigned Heart and Vascular Provider 10/05/20 04/02/22 Diana Desir, [facility] [address] [place], [place] 992656 Pharmacist Pharmacist 04/17/21 Rain Galaviz PA-C [address] [place] [address] [place] [address] Physician Equine Pharmacology Technician Dermatology 04/28/21 Summer Lara MD [address] [place] [address] Assigned OBGYN Provider 05/31/21 2 Tavia Wyatt MD [address] [place] [address] Dermatology 07/14/21 Johnny Murillo MD [address] [facility] [address] [place] [address] Assigned Musculoskeletal Provider 08/30/21 03/17/22 Erica Farrell APRN COMPOSITE LAYUP WORKER [address] [facility] [address] [place] [address] Nurse Practitioner Cardiovascular Disease 09/09/21 Tavia Wyatt MD Assigned Surgical Provider 11/29/21 05/07/22 Diana Desir, [facility] [address] [place] [address] Assigned MTM Pharmacist 01/02/22 Rich Barrett MD [address] 686555 Physician Ophthalmology 01/21/22 Neil Kent MD [address] [place] [address] 584395 Dermatology 02/24/22 Roney Story DPM [address] [facility] [address] [place] [address] Assigned Musculoskeletal Provider 03/20/22 08/13/22 Erica Farrell APRN COMPOSITE LAYUP WORKER 1700 [place] [address] Assigned Heart and Vascular Provider 04/03/22 04/16/22 Diana Desir, [facility] [address] [place], [place] 073776 Assigned MTM Pharmacist 04/07/22 Jelena David OD [address] [facility] [address] Assigned Surgical Provider 05/08/22 10/08/22 Galo Burrell MD Assigned Heart and Vascular Provider 04/17/22 06/11/22 Livan Sharif MD [address] [place] [address] [place] [address] Cardiovascular Disease 05/14/22 Livan Sharif MD [address] [place] [address] [place] [address] Assigned Heart and Vascular Provider 06/12/22 07/23/22 Catherine Cm MD [address] [place] [address] [place] [address] Cardiovascular Disease 07/21/22 JeremíasValery PA-C 909 [place] [address] Physician Equine Pharmacology Technician Dermatology 07/21/22 Catherine Cm MD [address] [facility] [address] [place] [address] Assigned Heart and Vascular Provider 07/24/22 11/05/22 Johnny Murillo MD [facility] [address] 364514 Assigned Musculoskeletal Provider 08/14/22 10/08/22 Brea Quinn APRN COMPOSITE LAYUP WORKER [address] [place] [address] Nurse Practitioner Dermatology 09/21/22 Brea Quinn APRN COMPOSITE LAYUP WORKER [address] [place] [address] [facility] [place] 542[address] Assigned Surgical Provider 10/09/22 [place] [address] 898977 Assigned Musculoskeletal Provider 10/09/22 Livan Sharif MD [address] [address] [place] 426825 Assigned Heart and Vascular Provider 11/06/22 11/12/22 Catherine Cm MD [address] [address] [place] 4[address]15 Assigned Heart and Vascular Provider 11/13/22 05/27/23 Sydnie Martinez, VJ Personal Advocate & Liaison (PAL) Family Medicine 03/28/23 07/31/23 Alfonso Renteria MD 5775 [facility] [address] [place] [address] Assigned Neuroscience Provider 04/02/23 Cheng Todd PA-C [address] [place], [place] 88342[address] Assigned PCP 04/30/23 07/15/23 Radha Lomeli APRN COMPOSITE LAYUP WORKER [address] [facility] [address] [place] [address] Assigned Heart and Vascular Provider 05/28/23 Jelena David OD [address] [facility] [place] [address] Ophthalmology 06/15/23 Pao Joseph, VJ Personal Advocate & Liaison (PAL) Nurse 08/01/23 Esha Grimm PA-C [address] [place] [address] Assigned PCP 07/16/23 Valery Veronica PA-C 909 [place], [place] 440745 Physician Equine Pharmacology Technician Dermatology 09/19/23 Rey Tay MD 909 [place] [address] Gastroenterology 09/20/23 Rocky Zepeda DO [address] [place] [address] Physician Gastroenterology 09/20/23 Philip Dumont MD [address] [place] [address] Physician Ophthalmology 09/22/23 documented as of this encounter
--- OUTSIDE RECORDS SUMMARY | 2023-10-28 16:45 | XMS_ITS | Encounter Summary ---
Author Name Unknown Organization [facility] Address [address] [place] [address] Care Team Providers Care Chemistry Technologist Name Role Phone Lita Oseguera Unavailable Unavailable Marija Edgar APRN ENTERPRISE SECURITY ARCHITECT Primary Care Provider U mandaailMarija Callaway APRN ENTERPRISE SECURITY ARCHITECT Unavailable Unavail able Mynor Broussard MD Unavailable [phone] Keisha Dotson MD Unavailable Galo Burrell MD Unavailable Unavailable Diana Desir [facility] Unavailable [phone] Rain Galaviz PA-C Unavailable Summer Lara MD Unavailable [phone] Tavia Wyatt MD Unavailable Unavailable Johnny Murillo MD Unavailable Erica Farrell APRN ENTERPRISE SECURITY ARCHITECT Unavailable Teersita Bean [facility] Unavailable Tavia Wyatt MD Unavailable Unavailable Diana Desir [facility] Unavailable [phone] Rich Barrett MD Unavailable Neil Kent MD Unavailable Roney Story DPM Unavailable [phone] StoErica pereira APRN ENTERPRISE SECURITY ARCHITECT Unavailable + Diana Desir [facility] Unavailable Jelena David OD Unavailable Galo Burrell MD Unavailable Unavailable Livan Sharif MD Unavailable Livan Sharif MD Unavailable IsCatherine hobbs MD Unavailable + Valery Veronica PA-C Unavailable +[phone] Catherine Cm MD Unavailable + Johnny Murillo MD Unavailable [phone] Brea Quinn [employer]IGH [employer]OL AGRICULTURE TEACHER ENTERPRISE SECURITY ARCHITECT Unavailable [phone] Brea Quinn [employer] S[employer]OL AGRICULTURE TEACHER ENTERPRISE SECURITY ARCHITECT Unavailable [phone] Jose Francisco Johnson MD Unavailable Livan Sharif MD Unavailable + IsCatherine hobbs MD Unavailable + Sydnie Martinez RN Unavailable Unavailable Alfonso Renteria MD Unavailable Esha Grimm PA-C Primary Care Provider Cheng Todd PA-C Unavailable Radha Lomeli [employer]IGH SCHOOL AGRICULTURE TEACHER ENTERPRISE SECURITY ARCHITECT Unavailable [phone] Jelena David OD Unavailable [phone] Pao Joseph RN Unavailable Unavailable Esha Grimm-C Unavailable [phone] Valery Veronica PA-C Unavailable [phone] Rey Tay MD Unavailable Rocky Zepeda DO Unavailable Philip Dumont MD Unavailable [phone] Encounter Details Date Type Department Care Team (Late st Contact Info) Description 08/04/2021 [facility] Medical Advice [address] [address] Bob Diop Social History Tobacco [...] week 08/07/2020 How often do you attend [facility] or taoist services? More than 4 times [...] Answer Date Recorded PHQ-2 Score 0 04/02/2021 [facility] - Occupational Stress Questionnaire Answer Date [...] in a prison (including now)? No 08/11/2020 [place] Depression Scale Answer Date Recorded [place] Depression Score 5 01/14/2021 Last EPDS [...] COVID-19? No / Unsure 08/03/2021 2:24 PM MICROGRINDER OPERATOR documented as of this encounter Plan of Treatment Upcoming Encounters Date Type Department Care Team (Late st Contact Info) Description 11/01/2023 8:00 AM CDT Appointment [facility] [address] [place] [address] Lauren Claudio PA-C [address] [place] [address] 11/03/2023 8:00 AM CDT Office Visit [address] [phone] Valery Veronica PA-C [address] [place] [address] 11/29/2023 8:00 AM CDT Office Visit [facility] [address] [place] [phone] Esha Grimm PA-C [address] [place] [phone] 12/19/2023 11:30 AM CDT Hospital Encounter [facility] 909 [facility] 5th [place] [phone] Rocky Zepeda, DO [address] [place] [address] 12/19/2023 11:30 AM CDT - 12/19/2023 12:00 PM CDT Surgery [facility] [address] [facility] [address] 5th [place] [phone] Rocky Zepeda, DO 500 [place] [address] Esophagoscopy, gastroscopy, duodenoscopy (EGD), combined 01/02/2024 8:00 AM CDT Office Visit [address] [phone] Lauren Claudio PA-C [address] [place] [address] Kelli Perez MD [address] 474124 Scheduled Procedures Name Priority Associated Diagnoses Date/Ti ak ESOPHAGOGASTRODUODENOSCOPY Eosinophilic esophagitis Esophageal dysphagia 12/19/2023 11:30 AM CDT documented as of this encounter Visit Diagnoses Not on filedocumented in this encounter Additional Health Concerns Infection Onset Date Last Indicated Resolved Time COVID-19 07/18/2021 07/18/2021 08/08/2021 11:3 9 PM MICROGRINDER OPERATOR Rule Out COVID-19 12/18/2021 12/18/2021 12/19/2021 11:34 AM CDT Rule Out COVID-19 02/24/2022 02/24/2022 02/25/2022 1:08 PM CDT Rule Out COVID-19 04/26/2022 04/26/2022 04/26/2022 6:47 AM CDT Rule Out COVID-19 05/17/2022 05/17/2022 05/17/2022 10:20 PM MICROGRINDER OPERATOR Rule Out COVID-19 06/09/2022 06/09/2022 06/09/2022 9:35 AM MICROGRINDER OPERATOR COVID-19 06/09/2022 06/09/2022 06/30/2022 11:4 1 PM MICROGRINDER OPERATOR Rule Out COVID-19 11/10/2022 11/10/2022 11/11/2022 12:17 PM CDT Rule Out COVID-19 03/07/2023 03/07/2023 03/07/2023 1:20 PM CDT Assessment Noted Time PHQ-9 Depression Total Score: 2 04/02/20 10:19 AM CDT documented as of this encounter Care Teams Chemistry Technologist Relationship Specialty Start Date End Date Marija Edgar APRN ENTERPRISE SECURITY ARCHITECT PCP - General Nurse Practitioner 04/30/20 04/14/23 Esha Grimm PA-C [address] [place] [address] PCP - General Family Medicine 05/04/23 Lita Oseguera Personal Advocate & Liaison (PAL) 02/28/20 03/27/23 Marija Edgar APRN ENTERPRISE SECURITY ARCHITECT Assigned PCP 06/08/20 04/29/23 Mynor Broussard MD [address] [address] Assigned Surgical Provider 06/01/20 11/28/21 Keisha Dotson MD 909 [place], [place] 0747[address] Assigned Neuroscience Provider 06/04/20 04/01/23 Galo Burrell MD Assigned Heart and Vascular Provider 10/05/20 04/02/22 Diana Desir, [facility] 3033 [place], [place] [phone] Pharmacist Pharmacist 04/17/21 Rain Galaivz PA-C [address] [place] [address] [place] [address] Physician Electronics Test Engineer Dermatology 04/28/21 Summer Lara MD [address] [place] [address] Assigned OBGYN Provider 05/31/21 2 Tavia Wyatt MD [address] [place] [address] Dermatology 07/14/21 Johnny Murillo MD [address] [place] [address] Assigned Musculoskeletal Provider 08/30/21 03/17/22 Erica Farrell APRN ENTERPRISE SECURITY ARCHITECT [address] [facility] [address] [place], [place] 6626[address] Nurse Practitioner Cardiovascular Disease 09/09/21 Teresita Bean, [facility] [address] [place] [address] Pharmacist Pharmacist 09/24/21 09/29/21 Tavia Wyatt MD Assigned Surgical Provider 11/29/21 05/07/22 [facility] [address] [place] [address] Assigned MTM Pharmacist 01/02/22 Rich Barrett MD 516 [facility] 9A [place] [address] Physician Ophthalmology 01/21/22 Neil Kent MD 500 [place] [address] Dermatology 02/24/22 Roney Story DPM [address] [facility] [address] [place] [address] Assigned Musculoskeletal Provider 03/20/22 08/13/22 Erica Farrell APRN ENTERPRISE SECURITY ARCHITECT 1700 [place] [address] Assigned Heart and Vascular Provider 04/03/22 04/16/22 [facility] 3033 [place] [address] Assigned MTM Pharmacist 04/07/22 Jelena David OD [address] [facility] [place] [address] Assigned Surgical Provider 05/08/22 10/08/22 Galo Burrell MD Assigned Heart and Vascular Provider 04/17/22 06/11/22 Livan Sharif MD [address] [place] [address]89[address] Cardiovascular Disease 05/14/22 Livan Sharif MD [address] [place] 727965 Assigned Heart and Vascular Provider 06/12/22 07/23/22 Catherine Cm MD [address] [place] [address] [place] [address] Cardiovascular Disease 07/21/22 Valery Veronica, PA-C [address] [place] [address] 558625 Physician Electronics Test Engineer Dermatology 07/21/22 Catherine Cm MD [address] [place] [place] [address] Assigned Heart and Vascular Provider 07/24/22 11/05/22 Johnny Murillo MD [address] [place] [address] Assigned Musculoskeletal Provider 08/14/22 10/08/22 Brea Quinn APRN ENTERPRISE SECURITY ARCHITECT [address] [place] [address] 124425 Nurse Practitioner Dermatology 09/21/22 Brea Quinn APRN ENTERPRISE SECURITY ARCHITECT [address] [place] [address] Assigned Surgical Provider 10/09/22 [place] [address] [place] [address] 703577 Assigned Musculoskeletal Provider 10/09/22 Livan Sharif MD [address] [place] [address] [place] 828025 Assigned Heart and Vascular Provider 11/06/22 11/12/22 Catherine Cm MD [address] [place] 0[address] Assigned Heart and Vascular Provider 11/13/22 05/27/23 Sydnie Martinez RN Personal Advocate & Liaison (PAL) Family Medicine 03/28/23 07/31/23 Alfonso Renteria MD [address] [facility] 200 [place], [place] 635856 Assigned Neuroscience Provider 04/02/23 Cheng Todd PA-C [address] [place], [place] [phone] Assigned PCP 04/30/23 07/15/23 Radha Lomeli APRN ENTERPRISE SECURITY ARCHITECT [address] [place], [place] 292995 Assigned Heart and Vascular Provider 05/28/23 Jelena David OD [address] [facility] [place] [address] Ophthalmology 06/15/23 Pao Joseph, VJ Personal Advocate & Liaison (PAL) Nurse 08/01/23 Esha Grimm PA-C [address] [place] [phone] Assigned PCP 07/16/23 Valery Veronica PA-C 9 [place], [place] 702835 Physician Electronics Test Engineer Dermatology 09/19/23 Rey Tay MD 909 [place], [place] [phone] Gastroenterology 09/20/23 Rocky Zepeda DO [address] [place] [address] 172515 Physician Gastroenterology 09/20/23 Philip Dumont MD [address] [place] [address] 826425 Physician Ophthalmology 09/22/23 documented as of this encounter
--- OUTSIDE RECORDS SUMMARY | 2023-10-28 16:45 | XMS_ITS | Encounter Summary ---
Author Name Unknown Organization [facility] Address [address] [place] [address] Care Team Providers Care Heating Plant Superintendent Name Role Phone Lita Oseguera Unavailable Unavailable Marija Edgar APRN WIRE SPIRAL BINDER Primary Care Provider U mandaailMarija Callaway APRN WIRE SPIRAL BINDER Unavailable Unavail able Mynor Broussard MD Unavailable [phone] Keisha Dotson MD Unavailable [phone] Galo Burrell MD Unavailable Unavailable [facility] Desir [facility] Unavailable Rain Galaviz PA-C Unavailable Summer Lara MD Unavailable [phone] Tavia Wyatt MD Unavailable Unavailable Johnny Murillo MD Unavailable Erica Farrell APRN WIRE SPIRAL BINDER Unavailable Teresita Bean [facility] Unavailable Tavia Wyatt MD Unavailable Unavailable Diana Desir [facility] Unavailable [phone] Rich Barrett MD Unavailable Neil Kent MD Unavailable Roney Story DPM Unavailable [phone] StoErica pereira APRN WIRE SPIRAL BINDER Unavailable + Diana Desir [facility] Unavailable Jelena David OD Unavailable Galo Burrell MD Unavailable Unavailable Livan Sharif MD Unavailable Livan Sharif MD Unavailable IsCatherine hobbs MD Unavailable + Valery Veronica PA-C Unavailable [phone] Catherine Cm MD Unavailable + Johnny Murillo MD Unavailable [phone] Brea Quinn WINDLASSER WIRE SPIRAL BINDER Unavailable [phone] Brea Quinn WINDLASSER WIRE SPIRAL BINDER Unavailable [phone] Jose Francisco Johnson MD Unavailable Livan Sharif MD Unavailable + IsCatherine hobbs MD Unavailable + Sydnie Martinez RN Unavailable Unavailable Alfonso Renteria MD Unavailable Esha Grimm PA-C Primary Care Provider Cheng Todd PA-C Unavailable Radha Lomeli WINDLASSER WIRE SPIRAL BINDER Unavailable [phone] Jelena David OD Unavailable [phone] Pao Joseph RN Unavailable Unavailable Esha Grimm-C Unavailable [phone] Valery Veronica PA-C Unavailable [phone] Rey Tay MD Unavailable Rocky Zepeda DO Unavailable Philip Dumont MD Unavailable [phone] Encounter Details Date Type Department Care Team (Late st Contact Info) Description 07/14/2021 [facility] Medical Advice [address] [address] Lauren Gan RN Social History [...] week 08/07/2020 How often do you attend [facility] or mormon services? More than 4 times per year [...] Answer Date Recorded PHQ-2 Score 0 04/02/2021 [facility] - [facility] [...] a senior care (including now)? No 08/11/2020 [place] Depression Scale Answer Date Recorded [place] Depression Score 5 01/14/2021 Last EPDS [...] Coronavirus / COVID-19? Yes 07/15/2021 12:15 PM NUCLEAR CARDIOLOGY TECHNOLOGIST documented as of this encounter Plan of Treatment Upcoming Encounters Date Type Department Care Team (Late st Contact Info) Description 11/01/2023 8:00 AM CDT Appointment [facility] [address] [place] [address] Lauren Claudio PA-C [address] [place] [address] 11/03/2023 8:00 AM CDT Office Visit [address] [phone] Valery Veronica PA-C [address] [place] [address] 11/29/2023 8:00 AM CDT Office Visit [facility] [address] [place] [phone] Esha Grimm PA-C [address] [place] [phone] 12/19/2023 11:30 AM CDT Hospital Encounter [facility] 909 [facility] 5th [place] [phone] Rocky Zepeda, DO [address] [place] [address] 12/19/2023 11:30 AM CDT - 12/19/2023 12:00 PM CDT Surgery [facility] 909 [facility] [address] 5th [place] [phone] Rocky Zepeda DO 500 [place] [address] Esophagoscopy, gastroscopy, duodenoscopy (EGD), combined 01/02/2024 8:00 AM CDT Office Visit [address] [phone] Lauren Claudio PA-C [address] [place] [address] Kelli Perez MD [address] [phone] Scheduled Procedures Name Priority Associated Diagnoses Date/Ti al ESOPHAGOGASTRODUODENOSCOPY Eosinophilic esophagitis Esophageal dysphagia 12/19/2023 11:30 AM CDT documented as of this encounter Visit Diagnoses Not on filedocumented in this encounter Additional Health Concerns Infection Onset Date Last Indicated Resolved Time Rule Out COVID-19 07/13/2021 07/13/2021 07/14/2021 3:04 PM NUCLEAR CARDIOLOGY TECHNOLOGIST Rule Out COVID-19 07/18/2021 07/18/2021 07/20/2021 1:56 PM NUCLEAR CARDIOLOGY TECHNOLOGIST COVID-19 07/18/2021 07/18/2021 08/08/2021 11:3 9 PM NUCLEAR CARDIOLOGY TECHNOLOGIST Rule Out COVID-19 12/18/2021 12/18/2021 12/19/2021 11:34 AM CDT Rule Out COVID-19 02/24/2022 02/24/2022 02/25/2022 1:08 PM CDT Rule Out COVID-19 04/26/2022 04/26/2022 04/26/2022 6:47 AM CDT Rule Out COVID-19 05/17/2022 05/17/2022 05/17/2022 10:20 PM NUCLEAR CARDIOLOGY TECHNOLOGIST Rule Out COVID-19 06/09/2022 06/09/2022 06/09/2022 9:35 AM NUCLEAR CARDIOLOGY TECHNOLOGIST COVID-19 06/09/2022 06/09/2022 06/30/2022 11:4 1 PM NUCLEAR CARDIOLOGY TECHNOLOGIST Rule Out COVID-19 11/10/2022 11/10/2022 11/11/2022 12:17 PM CDT Rule Out COVID-19 03/07/2023 03/07/2023 03/07/2023 1:20 PM CDT Assessment Noted Time PHQ-9 Depression Total Score: 2 04/02/20 10:19 AM CDT documented as of this encounter Care Teams Heating Plant Superintendent Relationship Specialty Start Date End Date Marija Edgar APRN WIRE SPIRAL BINDER PCP - General Nurse Practitioner 04/30/20 04/14/23 Esha Grimm, PA-C [address] [place] [phone] PCP - General Family Medicine 05/04/23 Lita Oseguera Personal Advocate & Liaison (PAL) 02/28/20 03/27/23 Marija Edgar APRN WIRE SPIRAL BINDER Assigned PCP 06/08/20 04/29/23 Mynor Broussard MD [address] [address] Assigned Surgical Provider 06/01/20 11/28/21 Keisha Dotson MD 909 [place] [address] Assigned Neuroscience Provider 06/04/20 04/01/23 Galo Burrell MD Assigned Heart and Vascular Provider 10/05/20 04/02/22 Diana Desir, [facility] [address] [place] [address] Pharmacist Pharmacist 04/17/21 Rain Galaviz PA-C [address] [place] [address] [place] [address] Physician Laundry Clerk Dermatology 04/28/21 Summer Lara MD [address] [place] [address] Assigned OBGYN Provider 05/31/21 2 Tavia Wyatt MD [address] [facility] [address] Dermatology 07/14/21 Johnny Murillo MD [address] [place] [address] Assigned Musculoskeletal Provider 08/30/21 03/17/22 Erica Farrell APRN WIRE SPIRAL BINDER 6[address] [facility] [address] [place] [address] Nurse Practitioner Cardiovascular Disease 09/09/21 Teresita Bean [facility] [address] [place] [address] Pharmacist Pharmacist 09/24/21 09/29/21 Tavia Wyatt MD Assigned Surgical Provider 11/29/21 05/07/22 Diana Desir, [facility] 30[address] [place] [address] Assigned MTM Pharmacist 01/02/22 Rich Barrett MD 516 [facility] 9A [place] [address] Physician Ophthalmology 01/21/22 Neil Kent MD 500 [place] [address] Dermatology 02/24/22 Roney Story DPM [address] [facility] [address] [place] [address] Assigned Musculoskeletal Provider 03/20/22 08/13/22 Erica Farrell APRN WIRE SPIRAL BINDER 1700 [place] [address] Assigned Heart and Vascular Provider 04/03/22 04/16/22 Diana Desir, [facility] 30[address] [place] [address] Assigned MTM Pharmacist 04/07/22 Jelena David OD [address] [facility] [place] [address] Assigned Surgical Provider 05/08/22 10/08/22 Galo Burrell MD Assigned Heart and Vascular Provider 04/17/22 06/11/22 Livan Sharif MD [address] [place] 148325 Cardiovascular Disease 05/14/22 Livan Sharif MD [address], [facility] [place] [address]25 Assigned Heart and Vascular Provider 06/12/22 07/23/22 Catherine Cm MD [address] [facility] [place] 9[address] Cardiovascular Disease 07/21/22 Valery Veronica, PA-C [address] [place] [address] 049445 Physician Laundry Clerk Dermatology 07/21/22 Catherine Cm MD [address] [place] [address] [place] [address] Assigned Heart and Vascular Provider 07/24/22 11/05/22 Johnny Murillo MD [address] [place] [address] 332184 Assigned Musculoskeletal Provider 08/14/22 10/08/22 Brea Quinn APRN WIRE SPIRAL BINDER [address] [place] [address] 681195 Nurse Practitioner Dermatology 09/21/22 Brea Quinn APRN WIRE SPIRAL BINDER [address] [place] [address] [place]MA [place]E 628862 Assigned Surgical Provider 10/09/22 [place] [address] [place] [address] 788907 Assigned Musculoskeletal Provider 10/09/22 Livan Sharif MD [address] [place] 222815 Assigned Heart and Vascular Provider 11/06/22 11/12/22 Catherine Cm MD [address] [place] [address] Assigned Heart and Vascular Provider 11/13/22 05/27/23 Sydnie Martinez, RN Personal Advocate & Liaison (PAL) Family Medicine 03/28/23 07/31/23 Alfonso Renteria MD 5775 [facility] 200 [place] [address] Assigned Neuroscience Provider 04/02/23 Cheng Todd PA-C [address] [place], [place] [phone] Assigned PCP 04/30/23 07/15/23 Radha Lomeli APRN WIRE SPIRAL BINDER [address] [place] [address] Assigned Heart and Vascular Provider 05/28/23 Jelena David OD [address] [facility] [place] [address] Ophthalmology 06/15/23 Pao Joseph, VJ Personal Advocate & Liaison (PAL) Nurse 08/01/23 Esha Grimm PAcUheC [address] [place] [phone] Assigned PCP 07/16/23 Valery Veronica PA-C 9 [place] [address] Physician Laundry Clerk Dermatology 09/19/23 Rey Tay MD [address] [place] [address] [id number] Gastroenterology 09/20/23 Rocky Zepeda DO [address] [place] [address] Physician Gastroenterology 09/20/23 Philip Dumont MD [address] [place] [address] 734115 Physician Ophthalmology 09/22/23 documented as of this encounter
--- OUTSIDE RECORDS SUMMARY | 2023-10-28 16:45 | XMS_ITS | Encounter Summary ---
Author Name Unknown Organization [place] Address [address] [place] [address] Care Team Providers Care Filler Shredder Name Role Phone Lita Oseguera Unavailable Unavailable Marija Edgar APRN COMMUNITY ENGAGEMENT SPECIALIST Primary Care Provider U mandaailMarija Callaway APRN COMMUNITY ENGAGEMENT SPECIALIST Unavailable Unavail able Mynor Broussard MD Unavailable [phone] Keisha Dotson MD Unavailable Galo Burrell MD Unavailable Unavailable Diana Desir [facility] Unavailable Rain Galaviz PA-C Unavailable Summer Lara MD Unavailable [phone] Tavia Wyatt MD Unavailable Unavailable Johnny Murillo MD Unavailable Erica Farrell APRN COMMUNITY ENGAGEMENT SPECIALIST Unavailable Teresita Bean [facility] Unavailable Tavia Wyatt MD Unavailable Unavailable Diana Desir [facility] Unavailable [phone] Rich Barrett MD Unavailable Neil Kent MD Unavailable Roney Story DPM Unavailable [phone] StoErica pereira APRN COMMUNITY ENGAGEMENT SPECIALIST Unavailable + Diana Desir [facility] Unavailable Jelena David OD Unavailable Galo Burrell MD Unavailable Unavailable Livan Sharif MD Unavailable Livan Sharif MD Unavailable IsCatherine hobbs MD Unavailable + Valery Veronica PA-C Unavailable [phone] Catherine Cm MD Unavailable + Johnny Murillo MD Unavailable [phone] Brea Quinn RECONSIGNMENT CLERK COMMUNITY ENGAGEMENT SPECIALIST Unavailable [phone] Brea Quinn RECONSIGNMENT CLERK COMMUNITY ENGAGEMENT SPECIALIST Unavailable [phone] Jose Francisco Johnson MD Unavailable Livan Sharif MD Unavailable + IsCatherine hobbs MD Unavailable + Sydnie Martinez RN Unavailable Unavailable Alfonso Renteria MD Unavailable Esha Grimm PA-C Primary Care Provider Cheng Todd PA-C Unavailable Radha Lomeli RECONSIGNMENT CLERK COMMUNITY ENGAGEMENT SPECIALIST Unavailable [phone] Jelena David OD Unavailable [phone] Pao Joseph RN Unavailable Unavailable Esha Grimm-C Unavailable [phone] Valery Veronica PA-C Unavailable [phone] Rey Tay MD Unavailable Rocky Zepeda DO Unavailable Philip Dumont MD Unavailable [phone] Encounter Details Date Type Department Care Team (Late st Contact Info) Description 06/01/2021 MyC Medical Advice [address] [address] Diana Desir, [facility] [address] [place] [address] Social History Tobacco Use Types Packs/Day Years [...] How often do you attend chur or taoism services? More than 4 times per year [...] Answer Date Recorded PHQ-2 Score 0 04/02/2021 [facility]at [...] a senior care (including now)? No 08/11/2020 Irwin Depression Scale Answer Date Recorded Irwin Depression Score 5 01/14/2021 Last EPDS Self [...] Notes * Telephone Encounter - Diana Desir [facility] - 06/01/2021 3:43 PM CST Called patient and reassured 50 mg dose increase in sertraline is typical and okay to do. She will closely monitor changes in mental health over next couple weeks. Answered all questions. Diana Desir, PharmD Medication Therapy Management Provider, [facility] Pager: [phone] RIAL LISTER documented in this encounter Plan of Treatment Upcoming Encounters Date Type Department Care Team (Late st Contact Info) Description 11/01/2023 8:00 AM CDT Appointment [facility] [address] [place] [address] Lauren Claudio, PAUcheC [address] [place] [address] 11/03/2023 8:00 AM CDT Office Visit [address] [phone] Valery Veronica, PA-C 908 [place] [address] 11/29/2023 8:00 AM CDT Office Visit [address] [phone] sEha Grimm PA-C [address] [place] [address] 12/19/2023 11:30 AM CDT Hospital Encounter [address] [phone] Rocky Zepeda DO 500 [place], [place] [address] 12/19/2023 11:30 AM CDT - 12/19/2023 12:00 PM CDT Surgery [address] [phone] Rocky Zepeda DO 500 [place], [place] 175785 Esophagoscopy, gastroscopy, duodenoscopy (EGD), combined 01/02/2024 8:00 AM CDT Office Visit [address] [phone] Lauren Claudio PA-C [address] [place], [place] [phone] Kelli Perez MD [address] [place] [address] [phone] Scheduled Procedures Name Priority Associated Diagnoses Date/Ti ia ESOPHAGOGASTRODUODENOSCOPY Eosinophilic esophagitis Esophageal dysphagia 12/19/2023 11:30 AM CDT documented as of this encounter Visit Diagnoses Not on filedocumented in this encounter Additional Health Concerns Infection Onset Date Last Indicated Resolved Time Rule Out COVID-19 07/13/2021 07/13/2021 07/14/2021 3:04 PM MATERIAL LISTER Rule Out COVID-19 07/18/2021 07/18/2021 07/20/2021 1:56 PM MATERIAL LISTER COVID-19 07/18/2021 07/18/2021 08/08/2021 11:3 9 PM MATERIAL LISTER Rule Out COVID-19 12/18/2021 12/18/2021 12/19/2021 11:34 AM CDT Rule Out COVID-19 02/24/2022 02/24/2022 02/25/2022 1:08 PM CDT Rule Out COVID-19 04/26/2022 04/26/2022 04/26/2022 6:47 AM CDT Rule Out COVID-19 05/17/2022 05/17/2022 05/17/2022 10:20 PM MATERIAL LISTER Rule Out COVID-19 06/09/2022 06/09/2022 06/09/2022 9:35 AM MATERIAL LISTER COVID-19 06/09/2022 06/09/2022 06/30/2022 11:4 1 PM MATERIAL LISTER Rule Out COVID-19 11/10/2022 11/10/2022 11/11/2022 12:17 PM CDT Rule Out COVID-19 03/07/2023 03/07/2023 03/07/2023 1:20 PM CDT Assessment Noted Time PHQ-9 Depression Total Score: 2 04/02/20 21 10:19 AM CDT documented as of this encounter Care Teams Filler Shredder Relationship Specialty Start Date End Date Marija Edgar APRN COMMUNITY ENGAGEMENT SPECIALIST PCP - General Nurse Practitioner 04/30/20 04/14/23 Esha Grimm PA-C [address] [place] [address] PCP - General Family Medicine 05/04/23 Lita Oseguera Personal Advocate & Liaison (PAL) 02/28/20 03/27/23 Marija Edgar APRN COMMUNITY ENGAGEMENT SPECIALIST Assigned PCP 06/08/20 04/29/23 Mynor Broussard MD [address] [facility] [address] [place] [address] Assigned Surgical Provider 06/01/20 11/28/21 Keisha Dotson MD 909 [place] [address] Assigned Neuroscience Provider 06/04/20 04/01/23 Galo Burrell MD Assigned Heart and Vascular Provider 10/05/20 04/02/22 Diana Desir, [facility] [address] [place] [address] Pharmacist Pharmacist 04/17/21 Rain Galaviz PA-C [address] [place] [address] [address] [place] [address] Physician Truck Chauffeur Dermatology 04/28/21 Summer Lara MD [address] [place] [address] Assigned OBGYN Provider 05/31/21 2 Tavia Wyatt MD [address] [place] [address] Dermatology 07/14/21 Johnny Murillo MD [address] [facility] [address] [place] [address] Assigned Musculoskeletal Provider 08/30/21 03/17/22 Erica Farrell APRN COMMUNITY ENGAGEMENT SPECIALIST [address] [facility] [address] [place] [address] Nurse Practitioner Cardiovascular Disease 09/09/21 Teresita Bean, [facility] [address] [place] [address] Pharmacist Pharmacist 09/24/21 09/29/21 Tavia Wyatt MD Assigned Surgical Provider 11/29/21 05/07/22 [facility] [address] [place] [address] Assigned MTM Pharmacist 01/02/22 Rich Barrett MD [address] [address] Physician Ophthalmology 01/21/22 Neil Kent MD 500 [place], [place] 6[address]65 Dermatology 02/24/22 Roney Story DPM [address] [facility] [address] [place], [place] 165807 Assigned Musculoskeletal Provider 03/20/22 08/13/22 Erica Farrell APRN COMMUNITY ENGAGEMENT SPECIALIST 1700 [place] [address] Assigned Heart and Vascular Provider 04/03/22 04/16/22 [facility] [address] [place] [address] Assigned MTM Pharmacist 04/07/22 Jelena David OD [address] [facility] [place] [address] Assigned Surgical Provider 05/08/22 10/08/22 Galo Burrell MD Assigned Heart and Vascular Provider 04/17/22 06/11/22 Livan Sharif MD [address], [address] [place] [address] Cardiovascular Disease 05/14/22 Livan Sharif MD [address], [address] [place] [address] Assigned Heart and Vascular Provider 06/12/22 07/23/22 Catherine Cm MD [address] [place], [place] 9556[address] Cardiovascular Disease 07/21/22 Valery Veronica, PAUcheC [address]09 [place], [place] 5459[address] Physician Truck Chauffeur Dermatology 07/21/22 Catherine Cm MD [address] [place] [address] Assigned Heart and Vascular Provider 07/24/22 11/05/22 Johnny Murillo MD [address] [place] [address] Assigned Musculoskeletal Provider 08/14/22 10/08/22 Brea Quinn APRN COMMUNITY ENGAGEMENT SPECIALIST 500 [place] [address] Nurse Practitioner Dermatology 09/21/22 Brea Quinn APRN COMMUNITY ENGAGEMENT SPECIALIST 6401 [facility] [place] [address] Assigned Surgical Provider 10/09/22 [place] [address] [place] [facility] 300 [place], [place] 815[address] Assigned Musculoskeletal Provider 10/09/22 Livan Sharif MD [address], [facility] [address] [place] 539275 Assigned Heart and Vascular Provider 11/06/22 11/12/22 Catherine Cm MD [address] [facility] [address] [place] 7[address]185 Assigned Heart and Vascular Provider 11/13/22 05/27/23 Sydnie Martinez RN Personal Advocate & Liaison (PAL) Family Medicine 03/28/23 07/31/23 Alfonso Renteria MD 5775 [facility] 200 [place] [address] Assigned Neuroscience Provider 04/02/23 Cheng Todd PA-C [address] [place] [address] Assigned PCP 04/30/23 07/15/23 Radha Lomeli APRN COMMUNITY ENGAGEMENT SPECIALIST 6405 [facility] [address] [place] [address] Assigned Heart and Vascular Provider 05/28/23 Jelena David OD [address] [facility] [place] [address] MD Ophthalmology 06/15/23 Pao Joseph, VJ Personal Advocate & Liaison (PAL) Nurse 08/01/23 Esha Grimm PA-C [address] [place] [phone] Assigned PCP 07/16/23 Valery Veronica PA-C 909 [place], [place] 540475 Physician Truck Chauffeur Dermatology 09/19/23 Rey Tay MD [address] [place] [address] 251895 Gastroenterology 09/20/23 Rocky Zepeda DO [address] [place] [address] 001055 Physician Gastroenterology 09/20/23 Philip Dumont MD [address] [place] [address] 397785 Physician Ophthalmology 09/22/23 documented as of this encounter
--- OUTSIDE RECORDS SUMMARY | 2023-10-28 16:45 | XMS_ITS | Encounter Summary ---
Author Name Unknown Organization [facility] Address [address] [place] [address] Care Team Providers Care Aquatics Lifeguard Name Role Phone Lita Oseguera Unavailable Unavailable Marija Edgar APRN [employer] Primary Care Provider U mandaailMarija Callaway APRN [employer] Unavailable Unavail able Mynor Broussard MD Unavailable [phone] Keisha Dotson MD Unavailable Galo Burrell MD Unavailable Unavailable Diana Desir [facility] Unavailable Rain Galaviz PA-C Unavailable Summer Lara MD Unavailable [phone] Tavia Wyatt MD Unavailable Unavailable Johnny Murillo MD Unavailable Erica Farrell APRN [employer] Unavailable Teresita Bean [facility] Unavailable [phone] Tavia Wyatt MD Unavailable Unavailable Diana Desir [facility] Unavailable [phone] Rich Barrett MD Unavailable Neil Kent MD Unavailable Roney Story DPM Unavailable [phone] StoErica pereira APRN [employer] Unavailable + Diana Desir [facility] Unavailable Jelena David OD Unavailable Galo Burrell MD Unavailable Unavailable Livan Sharif MD Unavailable Livan Sharif MD Unavailable IsCatherine hobbs MD Unavailable + Valery Veronica PA-C Unavailable [phone] Catherine Cm MD Unavailable + Johnny Murillo MD Unavailable [phone] Brea Quinn TIME RECORDER [employer] Unavailable [phone] Brea Quinn TIME RECORDER [employer] Unavailable [phone] Jose Francisco Johnson MD Unavailable Livan Sharif MD Unavailable + IsCatherine hobbs MD Unavailable + Sydnie Martinez RN Unavailable Unavailable Alfonso Renteria MD Unavailable Esha Grimm PA-C Primary Care Provider Cheng Todd PA-C Unavailable Radha Lomeli TIME RECORDER [employer] Unavailable [phone] Jelena David OD Unavailable [phone] Pao Joseph RN Unavailable Unavailable Esha Grimm-C Unavailable Valery Veronica PA-C Unavailable [phone] Rey Tay MD Unavailable Rocky Zepeda DO [...] do you attend chur or islam services? More than 4 times per year [...] Answer Date Recorded PHQ-2 Score 0 04/02/2021 [facility] - Occupational Stress Questionnaire Answer Date [...] a care home (including now)? No 08/11/2020 [place] Depression Scale Answer Date Recorded [place] Depression Score 5 01/14/2021 Last EPDS Self [...] COVID-19? No / Unsure 09/02/2021 12:26 PM CRIME LAB ANALYST documented as of this encounter Plan of Treatment Upcoming Encounters Date Type Department Care Team (Late st Contact Info) Description 11/01/2023 8:00 AM CDT Appointment [facility] Imaging [address] [facility] [place] [phone] Lauren Claudio PA-C [address] [place], [place] [phone] 11/03/2023 8:00 AM CDT Office Visit [address] [phone] Valery Veronica PA-C [address] [place] [address] 11/29/2023 8:00 AM CDT Office Visit [address] [phone] Esha Grimm PA-C [address] [place] [phone] 12/19/2023 11:30 AM CDT Hospital Encounter [facility] 909 [facility] 5th [place] [phone] Rocky Zepeda DO [address] [place] [address] 12/19/2023 11:30 AM CDT - 12/19/2023 12:00 PM CDT Surgery [facility] [address] [facility] [address] 5th [place] [phone] Rocky Zepeda, DO 500 [facility] [place] [address] Esophagoscopy, gastroscopy, duodenoscopy (EGD), combined 01/02/2024 8:00 AM CDT Office Visit [facility] [address] [place] [address] Lauren Claudio PA-C [address] [place] [address] Kelli Perez MD [address] [place] [address] Scheduled Procedures Name Priority Associated Diagnoses [...] Out COVID-19 05/17/2022 05/17/2022 05/17/2022 10:20 PM CRIME LAB ANALYST Rule Out COVID-19 06/09/2022 06/09/2022 06/09/2022 9:35 AM CRIME LAB ANALYST COVID-19 06/09/2022 06/09/2022 06/30/2022 11:4 1 PM CRIME LAB ANALYST Rule Out COVID-19 11/10/2022 11/10/2022 11/11/2022 12:17 PM CDT Rule Out COVID-19 03/07/2023 03/07/2023 03/07/2023 1:20 PM CDT Assessment Noted Time PHQ-9 Depression Total Score: 2 04/02/20 10:19 AM CDT documented as of this encounter Care Teams Aquatics Lifeguard Relationship Specialty Start Date End Date Marija Edgar APRN [employer] PCP - General Nurse Practitioner 04/30/20 04/14/23 Esha Grimm PA-C [address] [place] [phone] PCP - General Family Medicine 05/04/23 Lita Oseguera Personal Advocate & Liaison (PAL) 02/28/20 03/27/23 Marija Edgar APRN GREET[employer] GUE[employer] Assigned PCP 06/08/20 04/29/23 Mynor Broussard MD [address] [place] [address] Assigned Surgical Provider 06/01/20 11/28/21 Keisha Dotson MD 909 [place], [place] 7[address] Assigned Neuroscience Provider 06/04/20 04/01/23 Galo Burrell MD Assigned Heart and Vascular Provider 10/05/20 04/02/22 Diana Desir [facility] 3033 [place], [place] [phone] Pharmacist Pharmacist 04/17/21 Rain Galaviz PA-C [address] [place] [address] [address] [facility] [place] [address] Physician Laborer Powerhouse Dermatology 04/28/21 Summer Lara MD [address] [place], [place] 8[address] Assigned OBGYN Provider 05/31/21 2 Tavia Wyatt MD [address] [place] [address] Dermatology 07/14/21 Johnny Murillo MD [address] [place] [address] Assigned Musculoskeletal Provider 08/30/21 03/17/22 Erica Farrell APRN [employer] 6[address] [facility] [address] [place], [place] 9[address] Nurse Practitioner Cardiovascular Disease 09/09/21 Teresita Bean, [facility] [address] [place], [place] [phone] Pharmacist Pharmacist 09/24/21 09/29/21 Tavia Wyatt MD Assigned Surgical Provider 11/29/21 05/07/22 [facility] [address] [place] [address] Assigned MTM Pharmacist 01/02/22 Rcih Barrett MD [address] [address] Physician Ophthalmology 01/21/22 Neil Kent MD [address] [place] [address] Dermatology 02/24/22 Roney Story DPM [address] [facility] [address] [place] [address] Assigned Musculoskeletal Provider 03/20/22 08/13/22 Eirca Farrell APRN [employer] 1700 [place] [address] Assigned Heart and Vascular Provider 04/03/22 04/16/22 Diana Desir, [facility] 3033 [place] [address] Assigned MTM Pharmacist 04/07/22 Jelena David OD [address] [facility] [place] [id number] Assigned Surgical Provider 05/08/22 10/08/22 Galo Burrell MD Assigned Heart and Vascular Provider 04/17/22 06/11/22 Livan Sharif MD [address] [place] [address] Cardiovascular Disease 05/14/22 Livan Sharif MD [address] [place] [address] Assigned Heart and Vascular Provider 06/12/22 07/23/22 Catherine Cm MD [address] [place] [address] Cardiovascular Disease 07/21/22 Valery Veronica PAUcheC 909 [place], [place] 500[address] Physician Laborer Powerhouse Dermatology 07/21/22 Catherine Cm MD [address] [place] [id number] Assigned Heart and Vascular Provider 07/24/22 11/05/22 Johnny Murillo MD [address] [place] [address] Assigned Musculoskeletal Provider 08/14/22 10/08/22 Brea Quinn APRN [employer] [address] [place] [address] Nurse Practitioner Dermatology 09/21/22 Brea Quinn APRN [employer]ETER GUE[employer] SERVICES [address] [place] [address] Assigned Surgical Provider 10/09/22 [place] [address] [place] [address] [address] Assigned Musculoskeletal Provider 10/09/22 Livan Sharif MD [address] [place], [address] [place] [id number] Assigned Heart and Vascular Provider 11/06/22 11/12/22 Catherine Cm MD [address] [place] [id number] Assigned Heart and Vascular Provider 11/13/22 05/27/23 Sydnie Martinez RN Personal Advocate & Liaison (PAL) Family Medicine 03/28/23 07/31/23 Alfonso Renteria MD [address] [facility] [address] [place] [address] Assigned Neuroscience Provider 04/02/23 Cheng Todd PA-C [address] [place], [place] [phone] Assigned PCP 04/30/23 07/15/23 Radha Lomeli APRN [employer] [address] [place] [address] Assigned Heart and Vascular Provider 05/28/23 Jelena David OD [address] [facility] [address] [place] [id number] Ophthalmology 06/15/23 Pao Joseph RN Personal Advocate & Liaison (PAL) Nurse 08/01/23 Esha Grimm PA-C [address] [place] [address] Assigned PCP 07/16/23 Valery Veronica PA-C [address] [place] [address] Physician Laborer Powerhouse Dermatology 09/19/23 Rey Tay MD 909 [place], [place] 4[address]85 Gastroenterology 09/20/23 Rocky Zepeda DO [address] [place] [address] 480525 Physician Gastroenterology 09/20/23 Philip Dumont MD [address] [place] [address] 362935 Physician Ophthalmology 09/22/23 documented as of this encounter
--- OUTSIDE RECORDS SUMMARY | 2023-10-28 16:45 | XMS_ITS | Encounter Summary ---
Author Name Unknown Organization [place] Address [address] [place] [address] Care Team Providers Care Septic Tank Setter Name Role Phone Lita Oseguera Unavailable Unavailable Marija Edgar APRN DEPARTMENT STORE MANAGER Primary Care Provider U mandaailMarija Callaway APRN DEPARTMENT STORE MANAGER Unavailable Unavail able Mynor Broussard MD Unavailable [phone] Keisha Dotson MD Unavailable [phone] Galo Burrell MD Unavailable Unavailable Diana Desir [facility] Unavailable Rain Galaviz PA-C Unavailable Summer Lara MD Unavailable [phone] Tavia Wyatt MD Unavailable Unavailable Johnny Murillo MD Unavailable [phone] Erica Farrell APRN DEPARTMENT STORE MANAGER Unavailable Teresita Bean [facility] Unavailable Tavia Wyatt MD Unavailable Unavailable Diana Desir [facility] Unavailable [phone] Rich Barrett MD Unavailable Neil Kent MD Unavailable Roney Story DPM Unavailable [phone] StoErica pereira APRN DEPARTMENT STORE MANAGER Unavailable + Diana Desir [facility] Unavailable Jelena David OD Unavailable Galo Burrell MD Unavailable Unavailable Livan Sharif MD Unavailable Livan Sharif MD Unavailable IsCatherine hobbs MD Unavailable + Valery Veronica PA-C Unavailable +[phone] Catherine Cm MD Unavailable + Johnny Murillo MD Unavailable [phone] Brea Quinn [employer] DEPARTMENT STORE MANAGER Unavailable [phone] Brea Quinn [employer] DEPARTMENT STORE MANAGER Unavailable [phone] Jose Francisco Johnson MD Unavailable Livan Sharif MD Unavailable + IsCatherine hobbs MD Unavailable + Sydnie Martinez RN Unavailable Unavailable Alfonso Renteria MD Unavailable Esha Grimm PA-C Primary Care Provider Cheng Todd PA-C Unavailable Radha Lomeli [employer] DEPARTMENT STORE MANAGER Unavailable [phone] Jelena David OD Unavailable [phone] Pao Joseph RN Unavailable Unavailable Esha Grimm-C Unavailable [phone] Valery Veronica PA-C Unavailable [phone] Rey Tay MD Unavailable Rocky Zepeda DO [...] Answer Date Recorded PHQ-2 Score 0 04/02/2021 [facility] - Occupational Stress Questionnaire Answer [...] in a mcfp (including now)? No 08/11/2020 Pella Depression Scale Answer Date Recorded Pella Depression Score 5 01/14/2021 Last EPDS Self [...] COVID-19? No / Unsure 08/03/2021 2:24 PM V BELT FINISHER documented as of this encounter Plan of Treatment Upcoming Encounters Date Type Department Care Team (Late st Contact Info) Description 11/01/2023 8:00 AM CDT Appointment [facility] [address] [facility] [place] [phone] Lauren Claudio PA-C [address] [place], [place] [phone] 11/03/2023 8:00 AM CDT Office Visit [address] [phone] Valery Veronica PA-C [address] [place] [address] 11/29/2023 8:00 AM CDT Office Visit [address] [phone] Esha Grimm PA-C [address] [place] [phone] 12/19/2023 11:30 AM CDT Hospital Encounter [facility] 909 [facility] 5th [place] [phone] Rocky Zepeda DO [address] [place] [address] 12/19/2023 11:30 AM CDT - 12/19/2023 12:00 PM CDT Surgery [facility] 909 [facility] 5th [place] [phone] Rocky Zepeda, DO 500 [facility] [place] [address] Esophagoscopy, gastroscopy, duodenoscopy (EGD), combined 01/02/2024 8:00 AM CDT Office Visit [facility] [address] [place] [phone] Lauren Claudio PA-C [address] [place] [address] Kelli Perez MD [address] [place] [address] Scheduled Procedures Name Priority Associated Diagnoses Date/Ti de ESOPHAGOGASTRODUODENOSCOPY Eosinophilic esophagitis Esophageal dysphagia 12/19/2023 11:30 AM CDT documented as of this encounter Visit Diagnoses Not on filedocumented in this encounter Additional Health Concerns Infection Onset Date Last Indicated Resolved Time COVID-19 07/18/2021 07/18/2021 08/08/2021 11:3 9 PM V BELT FINISHER Rule Out COVID-19 12/18/2021 12/18/2021 12/19/2021 11:34 AM CDT Rule Out COVID-19 02/24/2022 02/24/2022 02/25/2022 1:08 PM CDT Rule Out COVID-19 04/26/2022 04/26/2022 04/26/2022 6:47 AM CDT Rule Out COVID-19 05/17/2022 05/17/2022 05/17/2022 10:20 PM V BELT FINISHER Rule Out COVID-19 06/09/2022 06/09/2022 06/09/2022 9:35 AM V BELT FINISHER COVID-19 06/09/2022 06/09/2022 06/30/2022 11:4 1 PM V BELT FINISHER Rule Out COVID-19 11/10/2022 11/10/2022 11/11/2022 12:17 PM CDT Rule Out COVID-19 03/07/2023 03/07/2023 03/07/2023 1:20 PM CDT Assessment Noted Time PHQ-9 Depression Total Score: 2 04/02/20 10:19 AM CDT documented as of this encounter Care Teams Septic Tank Setter Relationship Specialty Start Date End Date Marija Edgar APRN DEPARTMENT STORE MANAGER PCP - General Nurse Practitioner 04/30/20 04/14/23 Esha Grimm PA-C [address] [place] [phone] PCP - General Family Medicine 05/04/23 Lita Oseguera Personal Advocate & Liaison (PAL) 02/28/20 03/27/23 Marija Edgar APRN DEPARTMENT STORE MANAGER Assigned PCP 06/08/20 04/29/23 Mynor Broussard MD [address] [phone] Assigned Surgical Provider 06/01/20 11/28/21 Keisha Dotson MD 9 [place], [place] 662315 Assigned Neuroscience Provider 06/04/20 04/01/23 Galo Burrell MD Assigned Heart and Vascular Provider 10/05/20 04/02/22 Diana Desir, [facility] 3033 [place], [place] [address]626 Pharmacist Pharmacist 04/17/21 Rain Galaviz PA-C [address] [facility] [place] [address] Physician Credit Union Teller Dermatology 04/28/21 Summer Lara MD [address] [place] [address] Assigned OBGYN Provider 05/31/21 2 Tavia Wyatt MD [address] [place] [address] Dermatology 07/14/21 Johnny Murillo MD [address] [place] [address] Assigned Musculoskeletal Provider 08/30/21 03/17/22 Erica Farrell APRN DEPARTMENT STORE MANAGER [address] [facility] [address] [place] [address] Nurse Practitioner Cardiovascular Disease 09/09/21 Teresita Bean, [facility] [address] [facility] [address] Pharmacist Pharmacist 09/24/21 09/29/21 Tavia Wyatt MD Assigned Surgical Provider 11/29/21 05/07/22 [facility] [address] [place] [address] Assigned MTM Pharmacist 01/02/22 Rich Barrett MD 516 [facility] [place] [address] Physician Ophthalmology 01/21/22 Neil Kent MD 500 [place] [address] Dermatology 02/24/22 Roney Story DPM 135[address] [facility] [address] [place], [place] 818137 Assigned Musculoskeletal Provider 03/20/22 08/13/22 Erica Farrell APRN DEPARTMENT STORE MANAGER 1700 [place] [address] Assigned Heart and Vascular Provider 04/03/22 04/16/22 Diana Desir, [facility] [address] [place], [place] [phone] Assigned MTM Pharmacist 04/07/22 Jelena David OD [address] [facility] [place] [address] Assigned Surgical Provider 05/08/22 10/08/22 Galo Burrell MD Assigned Heart and Vascular Provider 04/17/22 06/11/22 Livan Sharif MD [address] [place] [address] Cardiovascular Disease 05/14/22 Livan Sharif MD [address] [place] [address] Assigned Heart and Vascular Provider 06/12/22 07/23/22 Catherine Cm MD [address] [address] [place] [address] Cardiovascular Disease 07/21/22 Valery Veronica, [facility] [address] [place] [address] Physician Credit Union Teller Dermatology 07/21/22 Catherine Cm MD 6405 [facility] [address] [place] [address] Assigned Heart and Vascular Provider 07/24/22 11/05/22 Johnny Murillo MD [address] [place] [address] Assigned Musculoskeletal Provider 08/14/22 10/08/22 Brea Quinn APRN DEPARTMENT STORE MANAGER [address] [place] [address] 144285 Nurse Practitioner Dermatology 09/21/22 Brea Quinn APRN DEPARTMENT STORE MANAGER [address] [place] [address] Assigned Surgical Provider 10/09/22 [place] [address] [place] [address] Assigned Musculoskeletal Provider 10/09/22 Livan Sharif MD [address] [facility] [address] [facility] [address] [facility] [address] [place] [address] Assigned Heart and Vascular Provider 11/06/22 11/12/22 IsCatherine hobbs MD [address] [address] [place] [address] Assigned Heart and Vascular Provider 11/13/22 05/27/23 Sydnie Martinez RN Personal Advocate & Liaison (PAL) Family Medicine 03/28/23 07/31/23 Alfonso Renteria MD [address] [facility] [address] [place] [address] Assigned Neuroscience Provider 04/02/23 Cheng Todd PA-C [address] [place], [place] [phone] Assigned PCP 04/30/23 07/15/23 Radha Lomeli APRN DEPARTMENT STORE MANAGER [address] [place] [address] Assigned Heart and Vascular Provider 05/28/23 Jelena David OD [address] [facility] [place] [address] Ophthalmology 06/15/23 Pao Joseph RN Personal Advocate & Liaison (PAL) Nurse 08/01/23 Esha Grimm PA-C [address] [place] [address] Assigned PCP 07/16/23 Valery Veronica PA-C [address] [place] [address] Physician Credit Union Teller Dermatology 09/19/23 Rey Tay MD 909 [place] [address] Gastroenterology 09/20/23 Rocky Zepeda DO [address] [place] [address] Physician Gastroenterology 09/20/23 Philip Dumont MD [address] [place] [address] Physician Ophthalmology 09/22/23 documented as of this encounter
--- OUTSIDE RECORDS SUMMARY | 2023-10-28 16:45 | XMS_ITS | Encounter Summary ---
Author Name Unknown Organization [place] Address [address] [place] [address] Care Team Providers Care Journeyman Operator Assistant Name Role Phone Lita Oseguera Unavailable Unavailable Marija Edgar APRN NEGATIVE CLEANER Primary Care Provider U mandaailMarija Callaway APRN NEGATIVE CLEANER Unavailable Unavail able Mynor Broussard MD Unavailable [phone] Keisha Dotson MD Unavailable Galo Burrell MD Unavailable Unavailable Diana Desir [facility] Unavailable [phone] Rain Galaviz PA-C Unavailable Summer Lara MD Unavailable [phone] Tavia Wyatt MD Unavailable Unavailable Johnny Murillo MD Unavailable [phone] Erica Farrell APRN NEGATIVE CLEANER Unavailable Teresita Bean [facility] Unavailable Tavia Wyatt MD Unavailable Unavailable Diana Desir [facility] Unavailable [phone] Rich Barrett MD Unavailable Neil Kent MD Unavailable Roney Story DPM Unavailable [phone] StoErica pereira APRN NEGATIVE CLEANER Unavailable + Diana Desir [facility] Unavailable Jelena David OD Unavailable Galo Burrell MD Unavailable Unavailable Livan Sharif MD Unavailable Livan Sharif MD Unavailable IsCatherine hobbs MD Unavailable + Valery Veronica PA-C Unavailable +[phone] Catherine Cm MD Unavailable + Johnny Murillo MD Unavailable [phone] Brea Quinn BUSINESS SUPPORT COORDINATOR NEGATIVE CLEANER Unavailable [phone] Brea Quinn BUSINESS SUPPORT COORDINATOR NEGATIVE CLEANER Unavailable [phone] Jose Francisco Johnson MD Unavailable Livan Sharif MD Unavailable + IsCatherine hobbs MD Unavailable + Sydnie Martinez RN Unavailable Unavailable Alfonso Renteria MD Unavailable Esha Grimm PA-C Primary Care Provider Cheng Todd PA-C Unavailable Radha Lomeli BUSINESS SUPPORT COORDINATOR NEGATIVE CLEANER Unavailable [phone] Jelena David OD Unavailable [phone] Pao Joseph RN Unavailable Unavailable Esha Grimm-C Unavailable [phone] Valery Veronica PA-C Unavailable +[phone] Rey Tay MD Unavailable Rocky Zepeda DO Unavailable Philip Dumont MD Unavailable [phone] Encounter Details Date Type Department Care Team (Late st Contact Info) Description 06/03/2021 MyC Medical Advice [address] [address] Diana Desir, [facility] 3033 [place] [address] Social History Tobacco Use Types Packs/Day Years [...] do you attend chur or catholic services? More than 4 times [...] Answer Date Recorded PHQ-2 Score 0 04/02/2021 [facility] [...] in a long term (including now)? No 08/11/2020 Prather Depression Scale Answer Date Recorded Prather Depression Score 5 01/14/2021 Last EPDS Self [...] 11/01/2023 8:[address] [facility] 6401 [facility] [place] [address] Lauren Claudio PA-C [address] [place], [place] [phone] 11/03/2023 8:00 AM CDT Office Visit [address] [phone] Valery Veronica PA-C [address] [place] [address] 11/29/2023 8:00 AM CDT Office Visit [facility] [address] [place] [phone] Esha Grimm PA-C [address] [place] [phone] 12/19/2023 11:30 AM CDT Hospital Encounter [address] [place] [address] Rocky Zepeda DO 500 [place] [address] 12/19/2023 11:30 AM CDT - 12/19/2023 12:00 PM CDT Surgery [facility] [address] [phone] Rocky Zepeda, DO 500 [place] [address] Esophagoscopy, gastroscopy, duodenoscopy (EGD), combined 01/02/2024 8:00 AM CDT Office Visit [address] [phone] Lauren Claudio PA-C [address] [place] [address] [phone] Kelli Perez MD [address] [place] [address] [phone] Scheduled Procedures Name Priority Associated Diagnoses Date/Ti mt ESOPHAGOGASTRODUODENOSCOPY Eosinophilic esophagitis Esophageal dysphagia 12/19/2023 11:30 AM CDT documented as of this encounter Visit Diagnoses Not on filedocumented in this encounter Additional Health Concerns Infection Onset Date Last Indicated Resolved Time Rule Out COVID-19 07/13/2021 07/13/2021 07/14/2021 3:04 PM HUMAN RESOURCES HR REPRESENTATIVE Rule Out COVID-19 07/18/2021 07/18/2021 07/20/2021 1:56 PM HUMAN RESOURCES HR REPRESENTATIVE COVID-19 07/18/2021 07/18/2021 08/08/2021 11:3 9 PM HUMAN RESOURCES HR REPRESENTATIVE Rule Out COVID-19 12/18/2021 12/18/2021 12/19/2021 11:34 AM CDT Rule Out COVID-19 02/24/2022 02/24/2022 02/25/2022 1:08 PM CDT Rule Out COVID-19 04/26/2022 04/26/2022 04/26/2022 6:47 AM CDT Rule Out COVID-19 05/17/2022 05/17/2022 05/17/2022 10:20 PM HUMAN RESOURCES HR REPRESENTATIVE Rule Out COVID-19 06/09/2022 06/09/2022 06/09/2022 9:35 AM HUMAN RESOURCES HR REPRESENTATIVE COVID-19 06/09/2022 06/09/2022 06/30/2022 11:4 1 PM HUMAN RESOURCES HR REPRESENTATIVE Rule Out COVID-19 11/10/2022 11/10/2022 11/11/2022 12:17 PM CDT Rule Out COVID-19 03/07/2023 03/07/2023 03/07/2023 1:20 PM CDT Assessment Noted Time PHQ-9 Depression Total Score: 2 04/02/20 10:19 AM CDT documented as of this encounter Care Teams Journeyman Operator Assistant Relationship Specialty Start Date End Date Marija Edgar APRN NEGATIVE CLEANER PCP - General Nurse Practitioner 04/30/20 04/14/23 Esha Grimm, PA-C [address] [place] [phone] PCP - General Family Medicine 05/04/23 Lita Oseguera Personal Advocate & Liaison (PAL) 02/28/20 03/27/23 Marija Edgar APRN NEGATIVE CLEANER Assigned PCP 06/08/20 04/29/23 Mynor Broussard MD [address] [address] Assigned Surgical Provider 06/01/20 11/28/21 Keisha Dotson MD 9 [place] [address] Assigned Neuroscience Provider 06/04/20 04/01/23 Galo Burrell MD Assigned Heart and Vascular Provider 10/05/20 04/02/22 Diana Desir, [facility] [address] [place] [address] Pharmacist Pharmacist 04/17/21 Rain Galaviz PA-C [address] [place] [address] [place] [address] Physician Packaging Tech Dermatology 04/28/21 Summer Lara MD [address] [place] [address] Assigned OBGYN Provider 05/31/21 2 Tavia Wyatt MD [address] [place] [address] Dermatology 07/14/21 Johnny Murillo MD [address] [place] [address] Assigned Musculoskeletal Provider 08/30/21 03/17/22 Erica Farrell APRN NEGATIVE CLEANER 6[address] [facility] [address] [place] [address] Nurse Practitioner Cardiovascular Disease 09/09/21 Teresita Bean, [facility] [address] [place] [address] Pharmacist Pharmacist 09/24/21 09/29/21 Tavia Wyatt MD Assigned Surgical Provider 11/29/21 05/07/22 Diana Desir, [facility] 3033 [place] [address] Assigned MTM Pharmacist 01/02/22 Rich Barrett MD [address] [address] Physician Ophthalmology 01/21/22 Neil Kent MD 500 [place], [place] 47[address]15 Dermatology 02/24/22 Roney Story DPM [address] [facility] [address] [place] [address] Assigned Musculoskeletal Provider 03/20/22 08/13/22 Erica Farrell APRN NEGATIVE CLEANER 1700 [place] [address] Assigned Heart and Vascular Provider 04/03/22 04/16/22 Diana Desir, [facility] 3033 [place] [address] Assigned MTM Pharmacist 04/07/22 Jelena David OD [address] [facility] [place] [address] Assigned Surgical Provider 05/08/22 10/08/22 Galo Burrell MD Assigned Heart and Vascular Provider 04/17/22 06/11/22 Livan Sharif MD [address], [facility] [address] [place] [address] Cardiovascular Disease 05/14/22 Livan Sharif MD [address], [place] [address] [address] Assigned Heart and Vascular Provider 06/12/22 07/23/22 Catherine mC MD [address] [place] [address] Cardiovascular Disease 07/21/22 Valery Veronica, PA-C [address] [place] [address] Physician Packaging Tech Dermatology 07/21/22 Catherine Cm MD [address] [facility] [address] [place] [address] Assigned Heart and Vascular Provider 07/24/22 11/05/22 Johnny Murillo MD [address] [place] [address] 043424 Assigned Musculoskeletal Provider 08/14/22 10/08/22 Brea Quinn APRN NEGATIVE CLEANER [address] [place] [address] 284235 Nurse Practitioner Dermatology 09/21/22 Brea Quinn APRN NEGATIVE CLEANER [address] [place] [address] [place] 045182 Assigned Surgical Provider 10/09/22 [place] [address] [place] [facility] 300 [place] [address] Assigned Musculoskeletal Provider 10/09/22 Livan Sharif MD [address], [place] [address] [place] [address] Assigned Heart and Vascular Provider 11/06/22 11/12/22 Catherine Cm MD [address] [place] [address] Assigned Heart and Vascular Provider 11/13/22 05/27/23 Sydnie Martinez RN Personal Advocate & Liaison (PAL) Family Medicine 03/28/23 07/31/23 Alfonso Renteria MD 5775 [facility] 200 [place] [address] Assigned Neuroscience Provider 04/02/23 Cheng Todd PA-C [address] [place], [place] [phone] Assigned PCP 04/30/23 07/15/23 Radha Lomeli, ARLENE NEGATIVE CLEANER [address] [place] [address] Assigned Heart and Vascular Provider 05/28/23 Jelena David OD [address] [facility] [place] [address] Ophthalmology 06/15/23 Pao Joseph, VJ Personal Advocate & Liaison (PAL) Nurse 08/01/23 Esha Grimm PAUcheC [address] [place] [phone] Assigned PCP 07/16/23 Valery Veronica PA-C 909 [place], [place] 680[address] Physician Packaging Tech Dermatology 09/19/23 Rey Tay MD [address] [place] [address] 383585 Gastroenterology 09/20/23 Rocky Zepeda DO [address] [place] [address] 185675 Physician Gastroenterology 09/20/23 Philip Dumont MD [address] [place] [address] 189235 Physician Ophthalmology 09/22/23 documented as of this encounter
--- OUTSIDE RECORDS SUMMARY | 2023-10-28 16:45 | XMS_ITS | Encounter Summary ---
Author Name Unknown Organization [place] Address [address] [place] [address]68 Care Team Providers Care Fire Extinguisher Repairer Name Role Phone Lita Oseguera Unavailable Unavailable Marija Edgar APRN HADOOP SOFTWARE ENGINEER Primary Care Provider U madnaailMarija Callaway APRN HADOOP SOFTWARE ENGINEER Unavailable Unavail able Mynor Broussard MD Unavailable [phone] Keisha Dotson MD Unavailable [phone] Galo Burrell MD Unavailable Unavailable Diana Desir [facility] Unavailable [phone] Rain Galaviz PA-C Unavailable Summer Lara MD Unavailable [phone] Tavia Wyatt MD Unavailable Unavailable Johnny Murillo MD Unavailable Erica Farrell APRN HADOOP SOFTWARE ENGINEER Unavailable Teresita Bean [facility] Unavailable Tavia Wyatt MD Unavailable Unavailable Diana Desir [facility] Unavailable [phone] Rich Barrett MD Unavailable Neil Kent MD Unavailable Roney Story DPM Unavailable [phone] StoErica pereira APRN HADOOP SOFTWARE ENGINEER Unavailable + Diana Desir [facility] Unavailable Jelena David OD Unavailable Galo Burrell MD Unavailable Unavailable Livan Sharif MD Unavailable Livan Sharif MD Unavailable IsCatherine hobbs MD Unavailable + Valery Veronica PA-C Unavailable [phone] Catherine Cm MD Unavailable + Johnny Murillo MD Unavailable [phone] Brea Quinn RESIDENTIAL PROGRAM COORDINATOR HADOOP SOFTWARE ENGINEER Unavailable [phone] Brea Quinn RESIDENTIAL PROGRAM COORDINATOR HADOOP SOFTWARE ENGINEER Unavailable [phone] Jose Franicsco Johnson MD Unavailable Livan Sharif MD Unavailable + IsCatherine hobbs MD Unavailable + Sydnie Martinez RN Unavailable Unavailable Alfonso Renteria MD Unavailable Esha Grimm PA-C Primary Care Provider Cheng Todd PA-C Unavailable Radha Lomeli RESIDENTIAL PROGRAM COORDINATOR HADOOP SOFTWARE ENGINEER Unavailable [phone] Jelena David OD Unavailable [phone] Pao Joseph RN Unavailable Unavailable Esha Grimm-C Unavailable [phone] Valery Veronica PA-C Unavailable [phone] Rey Tay MD Unavailable Rocky Zepeda DO Unavailable Philip Dumont MD Unavailable [phone] Encounter Details Date Type Department Care Team (Late st Contact Info) Description 09/02/2021 MyC Medical Advice [address] [address] Diana Desir, [facility] 30[address] [place] [address] Social History Tobacco Use Types Packs/Day Years [...] PHQ-2 Score 0 04/02/2021 [facility] - [...] health care facility (including now)? No 08/11/2020 [place] Depression Scale Answer Date Recorded [place] Depression Score 5 01/14/2021 Last EPDS [...] COVID-19? No / Unsure 09/02/2021 12:26 PM SUPERINTENDENT AUTOMOTIVE documented as of this encounter Plan of Treatment Upcoming Encounters Date Type Department Care Team (Late st Contact Info) Description 11/01/2023 8:00 AM CDT Appointment [facility] [address] [facility] [place] [address] Lauren Claudio PA-C [address] [place], [place] [phone] 11/03/2023 8:00 AM CDT Office Visit [address] [phone] Valery Veronica PA-C [address] [place] [address] 11/29/2023 8:00 AM CDT Office Visit [facility] [address] [place] [phone] Esha Grimm PA-C [address] [place] [phone] 12/19/2023 11:30 AM CDT Hospital Encounter [address] 5th [place] [phone] Rocky Zepeda DO 500 [place] [address] 12/19/2023 11:30 AM CDT - 12/19/2023 12:00 PM CDT Surgery [facility] [address] [phone] Rocky Zepeda, 500 [place] [address] Esophagoscopy, gastroscopy, duodenoscopy (EGD), combined 01/02/2024 8:00 AM CDT Office Visit [address] [phone] Lauren Claudio PA-C [address] [place] [address] [phone] Kelli Perez MD [address] [place] [address] [phone] Scheduled Procedures Name Priority Associated Diagnoses Date/Ti [...] Out COVID-19 05/17/2022 05/17/2022 05/17/2022 10:20 PM SUPERINTENDENT AUTOMOTIVE Rule Out COVID-19 06/09/2022 06/09/2022 06/09/2022 9:35 AM SUPERINTENDENT AUTOMOTIVE COVID-19 06/09/2022 06/09/2022 06/30/2022 11:4 1 PM SUPERINTENDENT AUTOMOTIVE Rule Out COVID-19 11/10/2022 11/10/2022 11/11/2022 12:17 PM CDT Rule Out COVID-19 03/07/2023 03/07/2023 03/07/2023 1:20 PM CDT Assessment Noted Time PHQ-9 Depression Total Score: 2 04/02/20 10:19 AM CDT documented as of this encounter Care Teams Fire Extinguisher Repairer Relationship Specialty Start Date End Date Marija Edgar APRN HADOOP SOFTWARE ENGINEER PCP - General Nurse Practitioner 04/30/20 04/14/23 Esha Grimm PA-C [address] [place] [phone] PCP - General Family Medicine 05/04/23 Lita Oseguera Personal Advocate & Liaison (PAL) 02/28/20 03/27/23 Marija Edgar APRN HADOOP SOFTWARE ENGINEER Assigned PCP 06/08/20 04/29/23 Mynor Broussard MD [address] [phone] Assigned Surgical Provider 06/01/20 11/28/21 Keisha Dotson MD 909 [place], [place] 540665 Assigned Neuroscience Provider 06/04/20 04/01/23 Galo Burrell MD Assigned Heart and Vascular Provider 10/05/20 04/02/22 Diana Desir, [facility] 3033 [place] [address] Pharmacist Pharmacist 04/17/21 Rain Galaviz PA-C [address] [place] [address] [place] [address] Physician Pipe And Tank Fabricator Dermatology 04/28/21 Summer Lara MD [address] [place] [address] Assigned OBGYN Provider 05/31/21 2 Tavia Wyatt MD [address] [place] [address] Dermatology 07/14/21 Johnny Murillo MD [address] [place] [address] Assigned Musculoskeletal Provider 08/30/21 03/17/22 Eirca Farrell APRN HADOOP SOFTWARE ENGINEER [address] [place] [address] Nurse Practitioner Cardiovascular Disease 09/09/21 Teresita Bean, [facility] [address] [place], [place] [phone] Pharmacist Pharmacist 09/24/21 09/29/21 Tavia Wyatt MD Assigned Surgical Provider 11/29/21 05/07/22 Diana Dseir, [facility] [address] [place] [address] Assigned MTM Pharmacist 01/02/22 Rich Barrett MD [address] [facility] [place], [place] 722[address] Physician Ophthalmology 01/21/22 Neil Kent MD 500 [place] [address] Dermatology 02/24/22 Roney Story DPM [address] [facility] [address] [place] [address] Assigned Musculoskeletal Provider 03/20/22 08/13/22 Erica Farrell APRN HADOOP SOFTWARE ENGINEER 1700 [place] [address] Assigned Heart and Vascular Provider 04/03/22 04/16/22 [facility] [address] [place] [address] Assigned MTM Pharmacist 04/07/22 Jelena David OD [address] [facility] [place] [address] Assigned Surgical Provider 05/08/22 10/08/22 Galo Burrell MD Assigned Heart and Vascular Provider 04/17/22 06/11/22 Livan Sharif MD [address] [place] 327735 Cardiovascular Disease 05/14/22 Livan Sharif MD [address] [place] [phone] Assigned Heart and Vascular Provider 06/12/22 07/23/22 Catherine Cm MD [address] [facility] [place] [address] Cardiovascular Disease 07/21/22 Valery Veronica, PAUche[facility] [address] [place] [address] 253375 Physician Pipe And Tank Fabricator Dermatology 07/21/22 Catherine Cm MD [address] [facility] [place] [address] Assigned Heart and Vascular Provider 07/24/22 11/05/22 Johnny Murillo MD [address] [place] [address] Assigned Musculoskeletal Provider 08/14/22 10/08/22 Brea Quinn APRN HADOOP SOFTWARE ENGINEER [address] [place] [address] 101225 Nurse Practitioner Dermatology 09/21/22 Brea Quinn APRN HADOOP SOFTWARE ENGINEER [address] [place] [address] Assigned Surgical Provider 10/09/22 [place] [address] [place] [address] Assigned Musculoskeletal Provider 10/09/22 Livan Sharif MD [address] [facility] [place] 842195 Assigned Heart and Vascular Provider 11/06/22 11/12/22 Catherine Cm MD [address] [facility] [address] [place] [address] Assigned Heart and Vascular Provider 11/13/22 05/27/23 Sydnie Martinez RN Personal Advocate & Liaison (PAL) Family Medicine 03/28/23 07/31/23 Alfonso Renteria MD [facility]75 [facility] 200 [place], [place] 395286 Assigned Neuroscience Provider 04/02/23 Cheng Todd PA-C [address] [place], [place] [phone] Assigned PCP 04/30/23 07/15/23 Radha Lomeli APRN HADOOP SOFTWARE ENGINEER [address] [place], [place] 166565 Assigned Heart and Vascular Provider 05/28/23 Jelena David OD [address] [facility] [place] [phone] Ophthalmology 06/15/23 Pao Joseph RN Personal Advocate & Liaison (PAL) Nurse 08/01/23 Esha Grimm PA-C [address] [place] [phone] Assigned PCP 07/16/23 Valery Veronica PA-C [address] [place] [address] Physician Pipe And Tank Fabricator Dermatology 09/19/23 Rey Tay MD 9 [place] [address] Gastroenterology 09/20/23 Rocky Zepeda DO [address] [place] [address] 433685 Physician Gastroenterology 09/20/23 Philip Dumont MD [address] [place] [address] 274825 Physician Ophthalmology 09/22/23 documented as of this encounter
--- OUTSIDE RECORDS SUMMARY | 2023-10-28 16:45 | XMS_ITS | Encounter Summary ---
Author Name Unknown Organization [place] Address [address] [place] [address] Care Team Providers Care Manager Lvn Name Role Phone Lita Oseguera Unavailable Unavailable Marija Edgar APRN TRACTOR ENGINE MECHANIC Primary Care Provider U mandaailMarija Callaway APRN TRACTOR ENGINE MECHANIC Unavailable Unavail able Mynor Broussard MD Unavailable [phone] Keisha Dotson MD Unavailable Galo Burrell MD Unavailable Unavailable Diana Desir [facility] Unavailable [phone] Rain Galaviz PA-C Unavailable Summer Lara MD Unavailable [phone] Tavia Wyatt MD Unavailable Unavailable Johnny Murillo MD Unavailable Erica Farrell APRN TRACTOR ENGINE MECHANIC Unavailable Teresita Bean [facility] Unavailable Tavia [place] MD Unavailable Unavailable Diana Desir [facility] Unavailable [phone] Rich Barrett MD Unavailable Neil Kent MD Unavailable Roney Story DPM Unavailable [phone] StoErica pereira APRN TRACTOR ENGINE MECHANIC Unavailable + Diana Desir [facility] Unavailable Jelena David OD Unavailable Galo Burrell MD Unavailable Unavailable Livan Sharif MD Unavailable Livan Sharif MD Unavailable IsCatherine hobbs MD Unavailable + Valery Veronica PA-C Unavailable [phone] Catherine Cm MD Unavailable + Johnny Murillo MD Unavailable [phone] Brea Quinn CASSANDRA CONSULTANT TRACTOR ENGINE MECHANIC Unavailable [phone] Brea Quinn CASSANDRA CONSULTANT TRACTOR ENGINE MECHANIC Unavailable [phone] Jose Francisco Johnson MD Unavailable Livan Sharif MD Unavailable + IsCatherine hobbs MD Unavailable + Sydnie Martinez RN Unavailable Unavailable Alfonso Renteria MD Unavailable Esha Grimm PA-C Primary Care Provider Cheng Todd PA-C Unavailable Radha Lomeli CASSANDRA CONSULTANT TRACTOR ENGINE MECHANIC Unavailable [phone] Jelena David OD Unavailable [phone] Pao Joseph RN Unavailable Unavailable Esha Grimm-C Unavailable [phone] Valery Veronica PA-C Unavailable [phone] Rey Tay MD Unavailable Rocky Zepeda DO Unavailable Philip Dumont MD Unavailable [phone] Encounter Details Date Type Department Care Team (Late st Contact Info) Description 09/24/2021 MyC Medical Advice [facility] [place] [address] [facility] [address] [place] [address] Teresita Bean, [facility] 1440 [facility] [place] [phone] Social History Tobacco Use Types Packs/Day Years [...] How often do you attend religious or hoahaoism serv ices? Never 09/22/2021 Do you belong [...] Answer Date Recorded PHQ-2 Score 2 09/22/2021 [facility] - Occupational [...] in a detention (including now)? No 09/22/2021 [place] Depression Scale Answer Date Recorded [place] Depression Score 5 01/14/2021 Last EPDS Self [...] AM CDT Appointment [facility] [address] [facility] [place] [address] Lauren Claudio PA-C [address] [place], [place] [phone] 11/03/2023 8:00 AM CDT Office Visit [address] [phone] Valery Veronica PA-C [address] [place] [address] [phone] 11/29/2023 8:00 AM CDT Office Visit [facility] [address] [place] [phone] Esha Grimm PA-C [address] [place] [phone] 12/19/2023 11:30 AM CDT Hospital Encounter [address] 5th [place] [address] Rocky Zepeda, DO 500 [place] [address] 12/19/2023 11:30 AM CDT - 12/19/2023 12:00 PM CDT Surgery [facility] 909 [facility] SE 5th [place] [phone] Rocky Zepeda DO 500 [place] [address] Esophagoscopy, gastroscopy, duodenoscopy (EGD), combined 01/02/2024 8:00 AM CDT Office Visit [facility] [address] [place] [phone] Lauren Claudio, PAUcheC [phone] [place] [address] [phone] Kelli Perez MD [address] [facility] 106 [place], [place] 8[address]214 Scheduled Procedures Name Priority Associated Diagnoses Date/Ti [...] Out COVID-19 05/17/2022 05/17/2022 05/17/2022 10:20 PM BLOCK HANDLER Rule Out COVID-19 06/09/2022 06/09/2022 06/09/2022 9:35 AM BLOCK HANDLER COVID-19 06/09/2022 06/09/2022 06/30/2022 11:4 1 PM BLOCK HANDLER Rule Out COVID-19 11/10/2022 11/10/2022 11/11/2022 12:17 PM CDT Rule Out COVID-19 03/07/2023 03/07/2023 03/07/2023 1:20 PM CDT Assessment Noted Time PHQ-9 Depression Total Score: 2 04/02/20 10:19 AM CDT documented as of this encounter Care Teams Manager Lvn Relationship Specialty Start Date End Date Marija Edgar APRN TRACTOR ENGINE MECHANIC PCP - General Nurse Practitioner 04/30/20 04/14/23 Esha Grimm PAUcheC [address] [place] [phone] PCP - General Family Medicine 05/04/23 Lita Oseguera Personal Advocate & Liaison (PAL) 02/28/20 03/27/23 Marija Edgar APRN TRACTOR ENGINE MECHANIC Assigned PCP 06/08/20 04/29/23 Mynor Broussard MD 6363 [facility] 500 [place] [address] Assigned Surgical Provider 06/01/20 11/28/21 Keisha Dotson MD 909 [place] [address] Assigned Neuroscience Provider 06/04/20 04/01/23 Galo Burrell MD Assigned Heart and Vascular Provider 10/05/20 04/02/22 Diana Desir, [facility] 3033 [place], [place] [phone] Pharmacist Pharmacist 04/17/21 Rain Galaviz PA-C [address] [place] [address] [place] [address] Physician Neon Sign Mechanic Dermatology 04/28/21 Summer Lara MD [address] [place], [place] 294614 Assigned OBGYN Provider 05/31/21 2 Tavia Wyatt MD [address] [place] [address] Dermatology 07/14/21 Johnny Murillo MD [address] [place], [place] 007544 Assigned Musculoskeletal Provider 08/30/21 03/17/22 Erica Farrell APRN TRACTOR ENGINE MECHANIC [address] [facility] [address] [place] [address] Nurse Practitioner Cardiovascular Disease 09/09/21 Teresita Bean [facility] [address] [place] [address] Pharmacist Pharmacist 09/24/21 09/29/21 Tavia Wyatt MD Assigned Surgical Provider 11/29/21 05/07/22 [facility] [address] [place] [address] Assigned MTM Pharmacist 01/02/22 Rich Barrett MD 516 [facility] 9A [place] [address] Physician Ophthalmology 01/21/22 Neil Kent MD 500 [place] [address] Dermatology 02/24/22 Roney Story DPM [address] [facility] [address] [place] [address] Assigned Musculoskeletal Provider 03/20/22 08/13/22 Erica Farrell APRN TRACTOR ENGINE MECHANIC 1700 [place] [address] Assigned Heart and Vascular Provider 04/03/22 04/16/22 [facility] [address] [place] [address] Assigned MTM Pharmacist 04/07/22 Jelena David OD [address] [facility] [address] Assigned Surgical Provider 05/08/22 10/08/22 Galo Burrell MD Assigned Heart and Vascular Provider 04/17/22 06/11/22 Livan Sharif MD [address] [place] [address] Cardiovascular Disease 05/14/22 Livan Sharif MD [address] [place] 567865 Assigned Heart and Vascular Provider 06/12/22 07/23/22 Catherine Cm MD [address] [facility] [place] [address] Cardiovascular Disease 07/21/22 Valery Veronica, PAUcheC [address] [place] [address] 342565 Physician Neon Sign Mechanic Dermatology 07/21/22 Catherine Cm MD [address] [place] [address] [place] 278135 Assigned Heart and Vascular Provider 07/24/22 11/05/22 Johnny Murillo MD [address] [place] [address] 549364 Assigned Musculoskeletal Provider 08/14/22 10/08/22 Brea Quinn APRN TRACTOR ENGINE MECHANIC [address] [place] [address] 544705 Nurse Practitioner Dermatology 09/21/22 Brea Quinn APRN TRACTOR ENGINE MECHANIC [address] [place] [address] [employer] [address] [facility] 276742 Assigned Surgical Provider 10/09/22 [place] [address] [place] [address] [place] 882877 Assigned Musculoskeletal Provider 10/09/22 Livan Sharif MD [address] [facility]00 [place] 764195 Assigned Heart and Vascular Provider 11/06/22 11/12/22 Catherine Cm MD [address] [place] 321045 Assigned Heart and Vascular Provider 11/13/22 05/27/23 Sydnie Martinez RN Personal Advocate & Liaison (PAL) Family Medicine 03/28/23 07/31/23 Alfonso Renteria MD [address] [facility] 200 [place], [place] 499716 Assigned Neuroscience Provider 04/02/23 Cheng Todd PA-C [address] [place], [place] [phone] Assigned PCP 04/30/23 07/15/23 Radha Lomeli, ARLENE TRACTOR ENGINE MECHANIC [address] [place] 115185 Assigned Heart and Vascular Provider 05/28/23 Jelena David OD 3305 [facility] [place] [address] Ophthalmology 06/15/23 Pao Joseph, VJ Personal Advocate & Liaison (PAL) Nurse 08/01/23 Esha Grimm PA-C [address] [place] [phone] Assigned PCP 07/16/23 Valery Veronica PA-C 909 [place], [place] 652165 Physician Neon Sign Mechanic Dermatology 09/19/23 Rey Tay MD 909 [place], [place] 061035 MD Gastroenterology 09/20/23 Rocky Zepeda DO [address] [place] [address] Physician Gastroenterology 09/20/23 Philip Dumont MD 6 [place], [place] 309615 Physician Ophthalmology 09/22/23 documented as of this encounter
--- OUTSIDE RECORDS SUMMARY | 2023-10-28 16:45 | XMS_ITS | Encounter Summary ---
Author Name Unknown Organization [place] Address [address] [place] [address] Care Team Providers Care Banjo Repair Person Name Role Phone Lita Oseguera Unavailable Unavailable Marija Edgar APRN REVENUE INSPECTOR Primary Care Provider U mandaailMarija Callaway APRN REVENUE INSPECTOR Unavailable Unavail able Mynor Broussard MD Unavailable [phone] Keisha Dotson MD Unavailable Galo Burrell MD Unavailable Unavailable Diana Desir [facility] Unavailable Rain Galaviz PA-C Unavailable Summer Lara MD Unavailable [phone] Tavia Wyatt MD Unavailable Unavailable Johnny Murillo MD Unavailable Erica Farrell APRN REVENUE INSPECTOR Unavailable Teresita Bean [facility] Unavailable Tavia Wyatt MD Unavailable Unavailable Diana Desir [facility] Unavailable [phone] Rich Barrett MD Unavailable Neil Kent MD Unavailable Roney Story DPM Unavailable [phone] StoErica pereira APRN REVENUE INSPECTOR Unavailable + Diana Desir [facility] Unavailable Jelena David OD Unavailable Galo Burrell MD Unavailable Unavailable Livan Sharif MD Unavailable Livan Sharif MD Unavailable IsCatherine hobbs MD Unavailable + Valery Veronica PA-C Unavailable [phone] Catherine Cm MD Unavailable + Johnny Murillo MD Unavailable [phone] Brea Quinn VICE PRESIDENT DIGITAL STRATEGIST REVENUE INSPECTOR Unavailable [phone] Brea Quinn VICE PRESIDENT DIGITAL STRATEGIST REVENUE INSPECTOR Unavailable [phone] Jose Francisco Johnson MD Unavailable Livan Sharif MD Unavailable + IsCatherine hobbs MD Unavailable + Sydnie Martinez RN Unavailable Unavailable Alfonso Renteria MD Unavailable Esha Grimm PA-C Primary Care Provider Cheng Todd PA-C Unavailable Radha Lomeli VICE PRESIDENT DIGITAL STRATEGIST REVENUE INSPECTOR Unavailable [phone] Jelena David OD Unavailable [phone] Pao Joseph RN Unavailable Unavailable Esha Grimm-C Unavailable [phone] Valery Veronica PA-C Unavailable [phone] Rey Tay MD Unavailable Rocky Zepeda DO Unavailable Philip Dumont MD Unavailable [phone] Encounter Details Date Type Department Care Team (Late st Contact Info) Description 06/25/2021 MyC Medical Advice [address] [address] Diana Desir, [facility] [address] [place] [address] Psoriasis (Primary Dx) Social History Tobacco Use [...] slept in a usp (including now)? No 08/11/2020 [place] Depression Scale Answer Date Recorded [place] Depression Score 5 01/14/2021 Last EPDS Self [...] COVID-19? No / Unsure 06/26/2021 8:28 AM GROUP ART SUPERVISOR documented as of this encounter Miscellaneous Notes * Telephone Encounter - Diana Desir [facility] - 06/26/2021 9:53 AM CST Discussed with PCP and verbal approval for betamethasone cream. Diana Desir, PharmD Medication Therapy Management Provider, [facility] Pager: [phone] P ART SUPERVISOR documented in this encounter Plan of Treatment Upcoming Encounters Date Type Department Care Team (Late st Contact Info) Description 11/01/2023 8:00 AM CDT Appointment [facility] [address] [phone] Lauren Claudio PA-C [address] [place] [address] 11/03/2023 8:00 AM CDT Office Visit [address] [phone] Valery Veronica PA-C 909 [place] [address] 11/29/2023 8:00 AM CDT Office Visit [facility] [id number] [place] [phone] Esha Grimm PA-C [address] [place] [address] 12/19/2023 11:30 AM CDT Hospital Encounter [address] 5th [place] [phone] Rocky Zepeda DO 500 [place], [place] [phone] 12/19/2023 11:30 AM CDT - 12/19/2023 12:00 PM CDT Surgery [address] [phone] Rocky Zepeda DO 500 [place], [place] [phone] Esophagoscopy, gastroscopy, duodenoscopy (EGD), combined 01/02/2024 8:00 AM CDT Office Visit [facility] [address] [phone] Lauren Claudio PA-C [address] [place] [address] Kelli Perez MD [address] [place] [address] [phone] Scheduled Procedures Name Priority Associated Diagnoses Date/Ti in ESOPHAGOGASTRODUODENOSCOPY Eosinophilic esophagitis Esophageal dysphagia 12/19/2023 11:30 AM CDT documented as of this encounter Visit Diagnoses Diagnosis Psoriasis- Primary Other psoriasis Eosinophilic esophagitis Esophageal dysphagia Dysphagia, pharyngoesophageal phase documented in this encounter Additional [facility] Concerns Infection Onset Date Last Indicated Resolved Time Rule Out COVID-19 07/13/2021 07/13/2021 07/14/2021 3:04 PM GROUP ART SUPERVISOR Rule Out COVID-19 07/18/2021 07/18/2021 07/20/2021 1:56 PM GROUP ART SUPERVISOR COVID-19 07/18/2021 07/18/2021 08/08/2021 11:3 9 PM GROUP ART SUPERVISOR Rule Out COVID-19 12/18/2021 12/18/2021 12/19/2021 11:34 AM CDT Rule Out COVID-19 02/24/2022 02/24/2022 02/25/2022 1:08 PM CDT Rule Out COVID-19 04/26/2022 04/26/2022 04/26/2022 6:47 AM CDT Rule Out COVID-19 05/17/2022 05/17/2022 05/17/2022 10:20 PM GROUP ART SUPERVISOR Rule Out COVID-19 06/09/2022 06/09/2022 06/09/2022 9:35 AM GROUP ART SUPERVISOR COVID-19 06/09/2022 06/09/2022 06/30/2022 11:4 1 PM GROUP ART SUPERVISOR Rule Out COVID-19 11/10/2022 11/10/2022 11/11/2022 12:17 PM CDT Rule Out COVID-19 03/07/2023 03/07/2023 03/07/2023 1:20 PM CDT Assessment Noted Time PHQ-9 Depression Total Score: 2 04/02/20 21 10:19 AM CDT documented as of this encounter Care Teams Banjo Repair Person Relationship Specialty Start Date End Date Marija Edgar APRN REVENUE INSPECTOR PCP - General Nurse Practitioner 04/30/20 04/14/23 Esha Grimm PA-C [address] [place] [phone] PCP - General Family Medicine 05/04/23 Lita Oseguera Personal Advocate & Liaison (PAL) 02/28/20 03/27/23 Marija Edgar APRN REVENUE INSPECTOR Assigned PCP 06/08/20 04/29/23 Mynor Broussard MD [address] [facility] 500 [place] [address] Assigned Surgical Provider 06/01/20 11/28/21 Keisha Dotson MD 909 [place] [address] Assigned Neuroscience Provider 06/04/20 04/01/23 Galo Burrell MD Assigned Heart and Vascular Provider 10/05/20 04/02/22 Diana Desir [facility] [address] [place] [address] Pharmacist Pharmacist 04/17/21 Rani Galaviz PA-C [address] [facility] [address] [place] [address] Physician Sponge Hooker Dermatology 04/28/21 Summer Lara MD [address] [place] [address] Assigned OBGYN Provider 05/31/21 2 Tavia Wyatt MD 606 [address] [address] Dermatology 07/14/[address] [facility] [address] Assigned Musculoskeletal Provider 08/30/21 03/17/22 Erica Farrell APRN REVENUE INSPECTOR [address] [facility] [address] [place] [address] Nurse Practitioner Cardiovascular Disease 09/09/21 Teresita Bean, [facility] [address] [place] [address] Pharmacist Pharmacist 09/24/21 09/29/21 Tavia Wyatt MD Assigned Surgical Provider 11/29/21 05/07/22 [facility] [address] [place] [address] Assigned MTM Pharmacist 01/02/22 Rich Barrett MD [address] 864365 Physician Ophthalmology 01/21/22 Neil Kent MD 500 [place], [place] 567195 Dermatology 02/24/22 Roney Story DPM [address] [facility] [address] [place], [place] 052[address] Assigned Musculoskeletal Provider 03/20/22 08/13/22 Erica Farrell APRN REVENUE INSPECTOR 1700 [place] [address] Assigned Heart and Vascular Provider 04/03/22 04/16/22 [facility] [address] [place] [address] Assigned MTM Pharmacist 04/07/22 [facility] [place] [address] [facility] [place] [address] Assigned Surgical Provider 05/08/22 10/08/22 Galo Burrell MD Assigned Heart and Vascular Provider 04/17/22 06/11/22 Livan Sharif MD [address] [place] [address] Cardiovascular Disease 05/14/22 Livan Sharif MD [address] [place] [address] Assigned Heart and Vascular Provider 06/12/22 07/23/22 Catherine Cm MD [address] [place] [address] Cardiovascular Disease 07/21/22 Valery Veronica, PA-C 909 [place] [address] Physician Sponge Hooker Dermatology 07/21/22 Catherine Cm MD [address] [place] [address] Assigned Heart and Vascular Provider 07/24/22 11/05/22 Johnny Murillo MD [address] [facility] [address] [place] [address] Assigned Musculoskeletal Provider 08/14/22 10/08/22 Brea Quinn APRN REVENUE INSPECTOR [address] [place] [address] Nurse Practitioner Dermatology 09/21/22 Brea Quinn APRN REVENUE INSPECTOR 6401 [place], [place] 490062 Assigned Surgical Provider 10/09/22 [place] [address] [facility] 300 [place], [place] 622377 Assigned Musculoskeletal Provider 10/09/22 Livan Sharif MD [address], [facility] [address] [place] [address] Assigned Heart and Vascular Provider 11/06/22 11/12/22 Catherine Cm MD [address] [facility] [address] [place] [address] Assigned Heart and Vascular Provider 11/13/22 05/27/23 Sydnie Martinez, VJ Personal Advocate & Liaison (PAL) Family Medicine 03/28/23 07/31/23 Alfonso Renteria MD 5775 [facility] 200 [place] [address] Assigned Neuroscience Provider 04/02/23 Cheng Todd PA-C [address] [place] [address] Assigned PCP 04/30/23 07/15/23 Radha Lomeli APRN REVENUE INSPECTOR [address] [place] [address] Assigned Heart and Vascular Provider 05/28/23 Jelena David OD [address] [facility] [address] [place] [address] MD Ophthalmology 06/15/23 Pao Joseph, VJ Personal Advocate & Liaison (PAL) Nurse 08/01/23 sEha Grimm PA-C [address] [place] [phone] Assigned PCP 07/16/23 Valery Veronica PA-C [address] [place] [address] 255675 Physician Sponge Hooker Dermatology 09/19/23 Rey Tay MD [address] [place] [address] 178255 Gastroenterology 09/20/23 Rocky Zepeda DO [address] [place] [address] 510275 Physician Gastroenterology 09/20/23 Philip Dumont MD [address] [place] [address] 949845 Physician Ophthalmology 09/22/23 documented as of this encounter
--- OUTSIDE RECORDS SUMMARY | 2023-10-28 16:46 | XMS_ITS | Encounter Summary ---
Author Name Unknown Organization [place] Address [address] [place] [address] Care Team Providers Care Distribution Supervisor Name Role Phone Lita Oseguera Unavailable Unavailable Marija Edgar APRN CREPE MACHINE OPERATOR Primary Care Provider Chanelle Gutierrez GIN POLE OPERATOR CN Unavailab le Marija Edgar APRN CREPE MACHINE OPERATOR Unavailable Unavail able Mynor Broussard MD Unavailable [phone] Keisha Dotson MD Unavailable [phone] Glao Burrell MD Unavailable Unavailable Diana Desir [facility] Unavailable [phone] Rain Galaviz PA-C Unavailable Summer Lara MD Unavailable [phone] Summer Lara MD Unavailable [phone] Summer Lara MD Unavailable [phone] Tavia Wyatt MD Unavailable Unavailable Johnny Murillo MD Unavailable Erica Farrell APRN CREPE MACHINE OPERATOR Unavailable Teresita Bean [facility] Unavailable Tavia Wyatt MD Unavailable Unavailable Diana Desir [facility] Unavailable [phone] Rich Barrett MD Unavailable Neil Kent MD Unavailable Roney Story DPM Unavailable Erica Farrell GIN POLE OPERATOR CREPE MACHINE OPERATOR Unavailable Thang Diana [place] [facility] Unavailable Jelena David OD Unavailable [phone] Galo Burrell MD Unavailable Unavailable HoLivan MD Unavailable Livan Sharif MD Unavailable + Catherine Cm MD Unavailable + Valery Veronica PA-C Unavailable [phone] Catherine Cm MD Unavailable + Johnny Murillo MD Unavailable [phone] Brea Quinn GIN POLE OPERATOR CREPE MACHINE OPERATOR Unavailable [phone] Brea Quinn GIN POLE OPERATOR CREPE MACHINE OPERATOR Unavailable [phone] Jose Francisco Johnson MD Unavailable Livan Sharif MD Unavailable Catherine Cm MD Unavailable + Sydnie Martinez RN Unavailable Unavailable Alfonso Renteria MD Unavailable Esha Grimm-C Primary Care Provider Cheng Todd PA-C Unavailable Radha Lomeli GIN POLE OPERATOR CREPE MACHINE OPERATOR Unavailable Jelena David OD Unavailable Pao Joseph RN Unavailable Unavailable Esha GrimmC Unavailable [phone] Valery eVronica PA-C Unavailable Rey Tay MD Unavailable Rocky Zepeda DO Unavailable Philip Dumont MD Unavailable [phone] Encounter Details Date Type Department Care Team (Late st Contact Info) Description 04/28/2021 MyC Medical Advice [address] [address] Lauren Gan, RN Social History [...] you attend chur ch or uatsdin services? More than 4 times per year [...] Answer Date Recorded PHQ-2 Score 0 04/02/2021 [facility] - [...] a care home (including now)? No 08/11/2020 [place] Depression Scale Answer Date Recorded [place] Depression Score 5 01/14/2021 Last EPDS [...] Info) Description 11/01/2023 8:00 AM CDT Appointment [facility] [address] [place] [address] Lauren Claudio PA-C [address] [place], [place] [phone] 11/03/2023 8:00 AM CDT Office Visit [address] [phone] Valery Veronica PA-C 909 [place] [address] 11/29/2023 8:00 AM CDT Office Visit [facility] [address] [place] [phone] Esha Grimm PA-C [address] [place] [phone] 12/19/2023 11:30 AM CDT Hospital Encounter [facility] 909 [facility] 5th [place] [phone] Rocky Zepeda, DO 500 [place], [place] [address] 12/19/2023 11:30 AM CDT - 12/19/2023 12:00 PM CDT Surgery [facility] 909 [facility] 5th [place] [phone] Rocky Zepeda DO 500 [place], [place] 736065 Esophagoscopy, gastroscopy, duodenoscopy (EGD), combined 01/02/2024 8:00 AM CDT Office Visit [address] [phone] Lauren Claudio PA-C [address] [place] [address] Kelli Perez MD [address] [place] [address] 806394 Scheduled Procedures Name Priority Associated Diagnoses Date/Ti ri ESOPHAGOGASTRODUODENOSCOPY Eosinophilic esophagitis Esophageal dysphagia 12/19/2023 11:30 AM CDT documented as of this encounter Visit Diagnoses Not on filedocumented in this encounter Additional Health Concerns Infection Onset Date Last Indicated Resolved Time Rule Out COVID-19 05/11/2021 05/11/2021 05/13/2021 10:18 AM CDT Rule Out COVID-19 07/13/2021 07/13/2021 07/14/2021 3:04 PM MANAGER OF PROGRAM Rule Out COVID-19 07/18/2021 07/18/2021 07/20/2021 1:56 PM MANAGER OF PROGRAM COVID-19 07/18/2021 07/18/2021 08/08/2021 11:3 9 PM MANAGER OF PROGRAM Rule Out COVID-19 12/18/2021 12/18/2021 12/19/2021 11:34 AM CDT Rule Out COVID-19 02/24/2022 02/24/2022 02/25/2022 1:08 PM CDT Rule Out COVID-19 04/26/2022 04/26/2022 04/26/2022 6:47 AM CDT Rule Out COVID-19 05/17/2022 05/17/2022 05/17/2022 10:20 PM MANAGER OF PROGRAM Rule Out COVID-19 06/09/2022 06/09/2022 06/09/2022 9:35 AM MANAGER OF PROGRAM COVID-19 06/09/2022 06/09/2022 06/30/2022 11:4 1 PM MANAGER OF PROGRAM Rule Out COVID-19 11/10/2022 11/10/2022 11/11/2022 12:17 PM CDT Rule Out COVID-19 03/07/2023 03/07/2023 03/07/2023 1:20 PM CDT Assessment Noted Time PHQ-9 Depression Total Score: 2 04/02/20 10:19 AM CDT documented as of this encounter Care Teams Distribution Supervisor Relationship Specialty Start Date End Date Marija Edgar APRN CREPE MACHINE OPERATOR PCP - General Nurse Practitioner 04/30/20 04/14/23 Esha Grimm PA-C [address] [place] [phone] PCP - General Family Medicine 05/04/23 Lita Oseguera Personal Advocate & Liaison (PAL) 02/28/20 03/27/23 Chanelle Mccann APRN CNM [address] [place] [address] Assigned OBGYN Provider 05/02/2005/09 Marija Edgar APRN CREPE MACHINE OPERATOR Assigned PCP 06/08/20 04/29/23 Mynor Broussard MD [address] [facility] [address] [facility] [place] [address] Assigned Surgical Provider 06/01/20 11/28/21 Keisha Dotson MD 909 [place] [address] Assigned Neuroscience Provider 06/04/20 04/01/23 Galo Burrell MD Assigned Heart and Vascular Provider 10/05/20 04/02/22 Diana Desir, [facility] [address] [place] [address] Pharmacist Pharmacist 04/17/21 Rain Galaviz PA-C [address] [place] [address] [address] [facility] [place] [address] Physician Forklift Truck Mechanic Dermatology 04/28/21 Summer Lara MD [address] [place] [address] Assigned OBGYN Provider 05/10/2105/23 Summer Lara MD [address] [place] [address] Assigned OBGYN Provider 05/31/21 2 Summer Lara MD [address] [place] [address] Assigned OBGYN Provider 05/24/2105/30 Tavia Wyatt MD [address] [address] Dermatology 07/14/21 Johnny Murillo MD [address] [place] [address] Assigned Musculoskeletal Provider 08/30/21 03/17/22 Erica Farrell, GIN POLE OPERATOR CREPE MACHINE OPERATOR [address] [place], [place] 63[address] Nurse Practitioner Cardiovascular Disease 09/09/21 Teresita Bean, [facility] [address] [place], [place] [phone] Pharmacist Pharmacist 09/24/21 09/29/21 Tavia Wyatt MD Assigned Surgical Provider 11/29/21 05/07/22 [facility] 3033 [place] [address] Assigned MTM Pharmacist 01/02/22 Rich Barrett MD 516 [facility] 9A [place], [place] 7[address] Physician Ophthalmology 01/21/22 Neil Kent MD 500 [place], [place] [phone] Dermatology 02/24/22 Roney Story DPM [address] [facility] [address] [place], [place] 6[address] Assigned Musculoskeletal Provider 03/20/22 08/13/22 Erica Farrell APRN CREPE MACHINE OPERATOR 1700 [place] [address] Assigned Heart and Vascular Provider 04/03/22 04/16/22 Diana Desir, [facility] 3033 [place] [address] Assigned MTM Pharmacist 04/07/22 Jelena David OD [address] [facility] [place] [address] Assigned Surgical Provider 05/08/22 10/08/22 Galo Burrell MD Assigned Heart and Vascular Provider 04/17/22 06/11/22 Livan Sharif MD [address] [place] [address] Cardiovascular Disease 05/14/22 Livan Sharif MD [address] [place] [address] Assigned Heart and Vascular Provider 06/12/22 07/23/22 Catherine Cm MD [address] [place] 335575 Cardiovascular Disease 07/21/22 Valery Veronica, PAUcheC 909 [place] [address] Physician Forklift Truck Mechanic Dermatology 07/21/22 IsCatherine hobbs MD [address] [facility]00 [place] 15[address]25 Assigned Heart and Vascular Provider 07/24/22 11/05/22 Johnny Murillo MD [address] 887684 Assigned Musculoskeletal Provider 08/14/22 10/08/22 Brea Quinn APRN CREPE MACHINE OPERATOR 500 [place], [place] [phone] Nurse Practitioner Dermatology 09/21/22 Brea Quinn APRN CREPE MACHINE OPERATOR 6401 [facility] [place] [address]192 Assigned Surgical Provider 10/09/22 [place] [address] [place] [address] 6[address] Assigned Musculoskeletal Provider 10/09/22 Livan Sharif MD [address] [facility]00 [place] [address] Assigned Heart and Vascular Provider 11/06/22 11/12/22 Catherine Cm MD [address] [facility] [address] [place] 987835 Assigned Heart and Vascular Provider 11/13/22 05/27/23 Sydnie Martinez RN Personal Advocate & Liaison (PAL) Family Medicine 03/28/23 07/31/23 Alfonso Renteria MD [address] [place] [address] Assigned Neuroscience Provider 04/02/23 Cheng Todd PA-C [address] [place], [place] 00668[address] Assigned PCP 04/30/23 07/15/23 Radha Lomeli APRN CREPE MACHINE OPERATOR [address] [place], [place] [address] Assigned Heart and Vascular Provider 05/28/23 Jelena David OD [address] [facility] [place] [address] Ophthalmology 06/15/23 Pao Joseph, VJ Personal Advocate & Liaison (PAL) Nurse 08/01/23 Esha Grimm PA-C [address] [place] [phone] Assigned PCP 07/16/23 Valery Veronica PA-C [address] [place] [address] 437385 Physician Forklift Truck Mechanic Dermatology 09/19/23 Rey Tay MD [address] [place] [address] 123745 Gastroenterology 09/20/23 Rocky Zepeda DO [address] [place] [address] Physician Gastroenterology 09/20/23 Philip Dumont MD 6 [place] [address] Physician Ophthalmology 09/22/23 documented as of this encounter
--- OUTSIDE RECORDS SUMMARY | 2023-10-28 16:46 | XMS_ITS | Encounter Summary ---
Author Name Unknown Organization [facility] Address [address] [place] [address] Care Team Providers Care Medicaid Specialist Name Role Phone Lita Oseguera Unavailable Unavailable Marija Edgar APRN MECHANIC INSULATOR Primary Care Provider Chanelle Gutierrez RADIO CONTROL CRANE OPERATOR CNM Unavailab le Kyara De La Fuente RN Unavailable [phone] Marija Edgar APRN MECHANIC INSULATOR Unavailable Unavail able Mynor Broussard MD Unavailable [phone] Keisha Dotson MD Unavailable [phone] Galo Burrell MD Unavailable Unavailable Cristina Wood Unavailable Diana Desir [facility] Unavailable [phone] Rain Galaviz PA-C Unavailable Summer Lara MD Unavailable [phone] Summer Lara MD Unavailable [phone] Summer Lara MD Unavailable [phone] Tavia Wyatt MD Unavailable Unavailable Johnny Murillo MD Unavailable Erica Farrell APRN MECHANIC INSULATOR Unavailable Teresita Bean [facility] Unavailable [phone] Tavia Wyatt MD Unavailable Unavailable Diana Desir [facility] Unavailable [phone] Rich Barrett MD Unavailable Neil Kent MD Unavailable Roney Story DPM Unavailable [phone] Erica Farrell RADIO CONTROL CRANE OPERATOR MECHANIC INSULATOR Unavailable + Desir Dinaa [place] [facility] Unavailable [phone] Jelena David OD Unavailable Galo Burrell MD Unavailable Unavailable Livan Sharif MD Unavailable + Livan Sharif MD Unavailable + Catherine Cm MD Unavailable + Valery Veronica PA-C Unavailable [phone] Catherine Cm MD Unavailable + Johnny Murillo MD Unavailable [phone] Brea Quinn RADIO CONTROL CRANE OPERATOR MECHANIC INSULATOR Unavailable [phone] Brea Quinn RADIO CONTROL CRANE OPERATOR MECHANIC INSULATOR Unavailable [phone] Jose Francisco Johnson MD Unavailable Livan Sharif MD Unavailable + Catherine Cm MD Unavailable + Sydnie Martinez RN Unavailable Unavailable Alfonso Renteria MD Unavailable [phone] Esha Grimm PA-C Primary Care Provider [phone] Cheng Todd PA-C Unavailable [phone] Radha Lomeli RADIO CONTROL CRANE OPERATOR MECHANIC INSULATOR Unavailable [phone] Jelena David OD Unavailable Pao Joseph RN Unavailable Unavailable Esha Grimm PA-C Unavailable [phone] Valery Veronica PA-C Unavailable [phone] Rey Tay MD Unavailable ZepedaRocky Unavailable Philip Dumont MD Unavailable [phone] Encounter Details Date Type Department Care Team (Late st Contact Info) Description 01/06/2021 Orders Only [facility] - Surgical Specialties Service Line [facility] [place] [address] Saurabh Marcial MD [address] [facility] 200 [place], [place] [address] Indication for care in labor and delivery, [...] Answer Date Recorded PHQ-2 Score 3 09/29/2020 [facility] - Occupational [...] Appointment [facility] [address] [place] [address] Lauren Claudio PA-C [address] [place] [address] [phone] 11/03/2023 8:00 AM CDT Office Visit [address] [phone] Valery Veronica PA-C 909 [place] [address] 11/29/2023 8:00 AM CDT Office Visit [facility] [address] [place] [phone] Esha Grimm PA-C [address] [place] [address] 12/19/2023 11:30 AM CDT Hospital Encounter [facility] OR [address] 5th [place] [phone] Rocky Zepeda DO 500 [place], [place] [address]185 12/19/2023 11:30 AM CDT - 12/19/2023 12:00 PM CDT Surgery [facility] OR [address] [phone] Rocky Zepeda DO 500 [place], [place] 34[address]95 Esophagoscopy, gastroscopy, duodenoscopy (EGD), combined 01/02/2024 8:00 AM CDT Office Visit [address] [phone] Lauren Claudio PA-C [address] [place], [place] [phone] Kelli Perez MD [address] [place] [address] [phone] Scheduled Procedures Name Priority Associated Diagnoses Date/Ti dc ESOPHAGOGASTRODUODENOSCOPY Eosinophilic esophagitis Esophageal dysphagia 12/19/2023 11:30 AM CDT documented as of this encounter Results * Asymptomatic COVID-19 Virus (Coronavirus) by PCR (01/09/2021 10:44 AM CDT) COVID-19 Virus PCR to [facility] - Source Nasopharyngeal 01/09/2021 10:[address] [facility] COVID-19 Virus PCR to [facility] [place] - Result Test received-See reflex to IDDL test SARS CoV2 (COVID-19) Virus RT-PCR 01/09/2021 6:32 PM CDT [facility], [facility] Specimen from nasopharyngeal structure (specimen) 01/09/2021 10:44 AM CDT 01/09/2021 10:45 AM CDT Saurabh Marcial MD LAB - MICRO GENE RAL ORDERABLES INFECTIOUS DISEASES [facility], [facility] [address] [place] [address], [facility] [address] [place] [address], [facility] [phone] documented in this encounter Visit Diagnoses Diagnosis Indication for care in labor and delivery, antepartum- Primary Unspecified indication for care or intervention related to labor and delivery, antepartum Eosinophilic esophagitis Esophageal dysphagia Dysphagia, pharyngoesophageal phase documented in this encounter Additional Health Concerns Infection Onset Date Last Indicated Resolved Time Rule Out COVID-19 05/11/2021 05/11/2021 05/13/2021 10:18 AM CDT Rule Out COVID-19 07/13/2021 07/13/2021 07/14/2021 3:04 PM CABLE TV INSTALLER Rule Out COVID-19 07/18/2021 07/18/2021 07/20/2021 1:56 PM CABLE TV INSTALLER COVID-19 07/18/2021 07/18/2021 08/08/2021 11:3 9 PM CABLE TV INSTALLER Rule Out COVID-19 12/18/2021 12/18/2021 12/19/2021 11:34 AM CDT Rule Out COVID-19 02/24/2022 02/24/2022 02/25/2022 1:08 PM CDT Rule Out COVID-19 04/26/2022 04/26/2022 04/26/2022 6:47 AM CDT Rule Out COVID-19 05/17/2022 05/17/2022 05/17/2022 10:20 PM CABLE TV INSTALLER Rule Out COVID-19 06/09/2022 06/09/2022 06/09/2022 9:35 AM CABLE TV INSTALLER COVID-19 06/09/2022 06/09/2022 06/30/2022 11:4 1 PM CABLE TV INSTALLER Rule Out COVID-19 11/10/2022 11/10/2022 11/11/2022 12:17 PM CDT Rule Out COVID-19 03/07/2023 03/07/2023 03/07/2023 1:20 PM CDT Assessment Noted Time PHQ-9 Depression Total Score: 6 09/30/19 3:25 PM CDT documented as of this encounter Care Teams Medicaid Specialist Relationship Specialty Start Date End Date Marija Edgar APRN MECHANIC INSULATOR PCP - General Nurse Practitioner 04/30/20 04/14/23 Esha Grimm PA-C [address] [place] [phone] PCP - General Family Medicine 05/04/23 Lita Oseguera Personal Advocate & Liaison (PAL) 02/28/20 03/27/23 Chanelle Mccann APRN CNM [address] [place] [address] 200 [place] [address] Assigned OBGYN Provider 05/02/2005/09 Kyara De La Fuente, RN Specialty Food Service Coordinator Neurology 06/04/20 03/05/21 Marija Edgar APRN MECHANIC INSULATOR Assigned PCP 06/08/20 04/29/23 Mynor Broussard MD [address] [facility] 500 [place] [address] Assigned Surgical Provider 06/01/20 11/28/21 Keisha Dotson MD 909 [place] [address] Assigned Neuroscience Provider 06/04/20 04/01/23 Galo Burrell MD Assigned Heart and Vascular Provider 10/05/20 04/02/22 Cristina Wood Financial Resource Worker 02/09/21 02/09/21 [facility] [address] [place] [address] Pharmacist Pharmacist 04/17/21 Rain Galaviz PA-C [address] [place] [address] [place] [address] Physician Wire Fence Erector Dermatology 04/28/21 Summer Lara MD [address] [place] [address] Assigned OBGYN Provider 05/10/2105/23 Summer Lara MD [address] [place] [address] Assigned OBGYN Provider 05/31/21 2 Summer Lara MD [address] [place] [address] Assigned OBGYN Provider 05/24/2105/30 Tavia Wyatt MD [address] [place] [address] Dermatology 07/14/21 Johnny Murillo MD [facility] [place] [address] Assigned Musculoskeletal Provider 08/30/21 03/17/22 Erica Farrell APRN MECHANIC INSULATOR [address] [facility] [address] [place] [address] Nurse Practitioner Cardiovascular Disease 09/09/21 Teresita Bean, [facility] [address] [place] [address] Pharmacist Pharmacist 09/24/21 09/29/21 Tavia Wyatt MD Assigned Surgical Provider 11/29/21 05/07/22 Diana Desir, [facility] 3033 [place] [address] Assigned MTM Pharmacist 01/02/22 Rich Barrett MD [address] 984145 Physician Ophthalmology 01/21/22 Neil Kent MD 500 [place], [place] [phone] Dermatology 02/24/22 Roney Story DPM [address] [facility] [address] [place] [address] Assigned Musculoskeletal Provider 03/20/22 08/13/22 Erica Farrell APRN MECHANIC INSULATOR 1700 [place] [address] Assigned Heart and Vascular Provider 04/03/22 04/16/22 Diana Desir, [facility] [address] [place], [place] 535366 Assigned MTM Pharmacist 04/07/22 Jelena David OD [address] [facility] [place] [address] Assigned Surgical Provider 05/08/22 10/08/22 Galo Burrell MD Assigned Heart and Vascular Provider 04/17/22 06/11/22 Livan Sharif MD [address] [place] [address] Cardiovascular Disease 05/14/22 Livan Sharif MD [address] [place] [address] Assigned Heart and Vascular Provider 06/12/22 07/23/22 Catherine Cm MD [address] [place] [address]22745 Cardiovascular Disease 07/21/22 Valery Veronica PAUcheC 9 [place], [place] [address]45 Physician Wire Fence Erector Dermatology 07/21/22 Catherine Cm MD [address] [place] [address] Assigned Heart and Vascular Provider 07/24/22 11/05/22 Johnny Murillo MD [facility]2 [place] [id number] [place] [address] Assigned Musculoskeletal Provider 08/14/22 10/08/22 Brea Quinn APRN MECHANIC INSULATOR 500 [place] [address] Nurse Practitioner Dermatology 09/21/22 Brea Quinn APRN MECHANIC INSULATOR 6401 [place] [address] Assigned Surgical Provider 10/09/22 [place] [address] [facility] 300 [place] [address] Assigned Musculoskeletal Provider 10/09/22 Livan Sharif MD [address], [facility] [address] [place] [address] Assigned Heart and Vascular Provider 11/06/22 11/12/22 Catherine Cm MD [address] [facility] [address] [place], [place] 98[address]95 Assigned Heart and Vascular Provider 11/13/22 05/27/23 Sydnie Martinez RN Personal Advocate & Liaison (PAL) Family Medicine 03/28/23 07/31/23 Alfonso Renteria MD 5775 [facility] 200 [place] [address] Assigned Neuroscience Provider 04/02/23 Cheng Todd PA-C [address] [place] [address] Assigned PCP 04/30/23 07/15/23 Radha Lomeli APRN MECHANIC INSULATOR [address] [place] [address] Assigned Heart and Vascular Provider 05/28/23 Jelena David OD [address] [place] [place] [address] MD Ophthalmology 06/15/23 Pao Joseph, RN Personal Advocate & Liaison (PAL) Nurse 08/01/23 Esha Grimm PA-C [address] [place] [address] Assigned PCP 07/16/23 Valery Veronica PA-C 9 [place] [address] Physician Wire Fence Erector Dermatology 09/19/23 Rey Tay MD [address] [place] [address] Gastroenterology 09/20/23 Rocky Zepeda DO [address] [place] [address] 494275 Physician Gastroenterology 09/20/23 Philip Dumont MD [address] [place] [address] 965495 Physician Ophthalmology 09/22/23 documented as of this encounter
--- OUTSIDE RECORDS SUMMARY | 2023-10-28 16:46 | XMS_ITS | Encounter Summary ---
Author Name Unknown Organization [facility] Address [address] [place] [address] Care Team Providers Care Pin Sticker Name Role Phone Lita Oseguera Unavailable Unavailable Marija Edgar APRN COAL UNLOADER Primary Care Provider Chanelle Gutierrez MEDICAL SECRETARY RECEPTIONIST CN Unavailab le Marija Edgar APRN COAL UNLOADER Unavailable Unavail able Mynor Broussard MD Unavailable [phone] Keisha Dotson MD Unavailable [phone] Galo Burrell MD Unavailable Unavailable Diana Desir [facility] Unavailable [phone] Rain Galaviz PA-C Unavailable Summer Lara MD Unavailable [phone] Summer Lara MD Unavailable [phone] Summer Lara MD Unavailable [phone] Tavia Wyatt MD Unavailable Unavailable Johnny Murillo MD Unavailable Erica Farrell APRN COAL UNLOADER Unavailable Teresita Bean [facility] Unavailable [phone] Tavia yWatt MD Unavailable Unavailable Diana Desir [facility] Unavailable Rich Barrett MD Unavailable Neil Kent MD Unavailable Roney Story DPM Unavailable Erica Farrell MEDICAL SECRETARY RECEPTIONIST COAL UNLOADER Unavailable Thang Diana [place] [facility] Unavailable Jelena David OD Unavailable [phone] Galo Burrell MD Unavailable Unavailable HoLivan MD Unavailable Livan Sharif MD Unavailable + Catherine Cm MD Unavailable + Valery Veronica PA-C Unavailable [phone] Catherine Cm MD Unavailable + Johnny Murillo MD Unavailable [phone] Brea Quinn MEDICAL SECRETARY RECEPTIONIST COAL UNLOADER Unavailable [phone] Brea Quinn MEDICAL SECRETARY RECEPTIONIST COAL UNLOADER Unavailable [phone] Jose Francisco Johnson MD Unavailable Livan Sharif MD Unavailable Catherine Cm MD Unavailable + Sydnie Martinez RN Unavailable Unavailable Alfonso Renteria MD Unavailable Esha Grimm-C Primary Care Provider Cheng Todd PA-C Unavailable Radha Lomeli MEDICAL SECRETARY RECEPTIONIST COAL UNLOADER Unavailable Jelena David OD Unavailable Pao Joseph RN Unavailable Unavailable Esha GrimmC Unavailable [phone] Valery Veronica PA-C Unavailable [phone] Rey Tay MD Unavailable Rocky Zepeda DO Unavailable Philip Dumont MD Unavailable [phone] Encounter Details Date Type Department Care Team (Late st Contact Info) Description 04/17/2021 [facility] Advice [address] [address] Diana Desir, [facility] 30[address] [place] [address] Social History Tobacco Use Types Packs/Day Years [...] a nursing home (including now)? No 08/11/2020 [place] Depression Scale Answer Date Recorded [place] Depression Score 5 01/14/2021 Last EPDS Self [...] Appointment [facility] [address] [place] [address] Lauren Claudio PA-C [address] [place] [address] 11/03/2023 8:00 AM CDT Office Visit [address] [phone] Valery Veronica PA-C 909 [place] [address] 11/29/2023 8:00 AM CDT Office Visit [facility] [address] [place] [phone] Esha Grimm PA-C [address] [place] [phone] 12/19/2023 11:30 AM CDT Hospital Encounter [facility] [place] [address] [place] [address] [phone] Rocky Zepeda DO 500 [place], [place] 701135 12/19/2023 11:30 AM CDT - 12/19/2023 12:00 PM CDT Surgery [facility] [place] [address] [place] [address] [phone] Rocky Zepeda, DO 500 [place], [place] [phone] Esophagoscopy, gastroscopy, duodenoscopy (EGD), combined 01/02/2024 8:00 AM CDT Office Visit [facility] [address] [phone] Lauren Claudio PA-C [address] [place], [place] [phone] Kelli Perez MD [address] [place] [address] 201794 Scheduled Procedures Name Priority Associated Diagnoses Date/Ti ky ESOPHAGOGASTRODUODENOSCOPY Eosinophilic esophagitis Esophageal dysphagia 12/19/2023 11:30 AM CDT documented as of this encounter Visit Diagnoses Not on filedocumented in this encounter Additional Health Concerns Infection Onset Date Last Indicated Resolved Time Rule Out COVID-19 05/11/2021 05/11/2021 05/13/2021 10:18 AM CDT Rule Out COVID-19 07/13/2021 07/13/2021 07/14/2021 3:04 PM RAILROAD CAR LOADER Rule Out COVID-19 07/18/2021 07/18/2021 07/20/2021 1:56 PM RAILROAD CAR LOADER COVID-19 07/18/2021 07/18/2021 08/08/2021 11:3 9 PM RAILROAD CAR LOADER Rule Out COVID-19 12/18/2021 12/18/2021 12/19/2021 11:34 AM CDT Rule Out COVID-19 02/24/2022 02/24/2022 02/25/2022 1:08 PM CDT Rule Out COVID-19 04/26/2022 04/26/2022 04/26/2022 6:47 AM CDT Rule Out COVID-19 05/17/2022 05/17/2022 05/17/2022 10:20 PM RAILROAD CAR LOADER Rule Out COVID-19 06/09/2022 06/09/2022 06/09/2022 9:35 AM RAILROAD CAR LOADER COVID-19 06/09/2022 06/09/2022 06/30/2022 11:4 1 PM RAILROAD CAR LOADER Rule Out COVID-19 11/10/2022 11/10/2022 11/11/2022 12:17 PM CDT Rule Out COVID-19 03/07/2023 03/07/2023 03/07/2023 1:20 PM CDT Assessment Noted Time PHQ-9 Depression Total Score: 2 04/02/20 10:19 AM CDT documented as of this encounter Care Teams Pin Sticker Relationship Specialty Start Date End Date Marija Edgar APRN COAL UNLOADER PCP - General Nurse Practitioner 04/30/20 04/14/23 Esha Grimm PA-C [address] [place] [phone] PCP - General Family Medicine 05/04/23 Lita Oseguera Personal Advocate & Liaison (PAL) 02/28/20 03/27/23 Chanelle Mccann APRN [place] [address] [address] Assigned OBGYN Provider 05/02/2005/09 Marija Edgar APRN [facility] Assigned PCP 06/08/20 04/29/23 Mynor Broussard MD 6363 [facility] 500 [place] [address] Assigned Surgical Provider 06/01/20 11/28/21 Keisha Dotson MD 909 [place], [place] 317975 Assigned Neuroscience Provider 06/04/20 04/01/23 Galo Burrell MD Assigned Heart and Vascular Provider 10/05/20 04/02/22 [facility] [address] [place] [address] Pharmacist Pharmacist 04/17/21 Rain Galaviz PA-C [address] [place] [address] [address] [place] [address] Physician Recovery Advocate Dermatology 04/28/21 Summer Lara MD [address] [place] [address] 612334 Assigned OBGYN Provider 05/10/2105/23 Summer Lara MD [address] [place] [address] 717014 Assigned OBGYN Provider 05/31/21 2 Summer Lara MD [address] [place] [address] Assigned OBGYN Provider 05/24/2105/30 Tavia Wyatt MD [address] [address] Dermatology 07/14/21 Johnny Murillo MD [address] [place] [address] Assigned Musculoskeletal Provider 08/30/21 03/17/22 Erica Farrell APRN COAL UNLOADER 6405 [facility] [address] [place] [address] Nurse Practitioner Cardiovascular Disease 09/09/21 Teresita Bean, [facility] [address] [place] [place], [place] [phone] Pharmacist Pharmacist 09/24/21 09/29/21 Tavia Wyatt MD Assigned Surgical Provider 11/29/21 05/07/22 [facility] 3033 [place] [address] Assigned MTM Pharmacist 01/02/22 Rich Barrett MD 516 [facility] 9A [place], [place] 274805 Physician Ophthalmology 01/21/22 Neil Kent MD [address] [place] [address] 409115 Dermatology 02/24/22 Roney Story DPM [address] [facility] [address] [place] [address] Assigned Musculoskeletal Provider 03/20/22 08/13/22 Erica Farrell APRN COAL UNLOADER 1700 [place] [address] Assigned Heart and Vascular Provider 04/03/22 04/16/22 [facility] 3033 [place], [place] [address] Assigned MTM Pharmacist 04/07/22 Jelena David OD [address] [facility] [place] [address] Assigned Surgical Provider 05/08/22 10/08/22 Galo Burrell MD Assigned Heart and Vascular Provider 04/17/22 06/11/22 Livan Sharif MD [address] [place] [address] Cardiovascular Disease 05/14/22 Livan Sharif MD [address] [place] [address] Assigned Heart and Vascular Provider 06/12/22 07/23/22 Catherine Cm MD [address] [place] 325515 Cardiovascular Disease 07/21/22 Valery Veronica, PAUcheC [address] [place] [address] Physician Recovery Advocate Dermatology 07/21/22 Catherine Cm MD [address] [place] [address] Assigned Heart and Vascular Provider 07/24/22 11/05/22 Johnny Murillo MD [address] [place] [address] Assigned Musculoskeletal Provider 08/14/22 10/08/22 Brea Quinn APRN COAL UNLOADER [address] [place] [address] 825725 Nurse Practitioner Dermatology 09/21/22 Brea Quinn APRN COAL UNLOADER [address] [place] [address] Assigned Surgical Provider 10/09/22 [place] [address] [address] Assigned Musculoskeletal Provider 10/09/22 Livan Sharif MD [address] [place] [address] Assigned Heart and Vascular Provider 11/06/22 11/12/22 Catherine Cm MD [address] [place] 307[address] Assigned Heart and Vascular Provider 11/13/22 05/27/23 Sydnie Martinez RN Personal Advocate & Liaison (PAL) Family Medicine 03/28/23 07/31/23 Alfonso Renteria MD [address] [facility] [address] 200 [place] [address] Assigned Neuroscience Provider 04/02/23 Cheng Todd PA-C [address] [place], [place] [phone] Assigned PCP 04/30/23 07/15/23 Radha Lomeli APRN COAL UNLOADER 6405 [facility] [place] [address] Assigned Heart and Vascular Provider 05/28/23 Jelena David OD [address] [facility] [place] [address] Ophthalmology 06/15/23 Pao Joseph RN Personal Advocate & Liaison (PAL) Nurse 08/01/23 Esha Grimm PA-C [address] [place] [phone] Assigned PCP 07/16/23 Valery Veronica PA-C [address] [place] [address] 037835 Physician Recovery Advocate Dermatology 09/19/23 Rey Tay MD [address] [place] [address] 843335 Gastroenterology 09/20/23 Rocky Zepeda DO [address] [place] [address] 975135 Physician Gastroenterology 09/20/23 Philip Dumont MD [address] [place] [address] Physician Ophthalmology 09/22/23 documented as of this encounter
--- OUTSIDE RECORDS SUMMARY | 2023-10-28 16:46 | XMS_ITS | Encounter Summary ---
Author Name Unknown Organization [place] Address [address] [place] [address] Care Team Providers Care [employer] Name Role Phone Lita Oseguera Unavailable Unavailable Marija Edgar APRN BRINE TANK SEPARATOR OPERATOR Primary Care Provider Chanelle Gutierrez CLERICAL AIDE TEACHER CNM Unavailab le Kyara De La Fuente RN Unavailable [phone] Marija Edgar APRN BRINE TANK SEPARATOR OPERATOR Unavailable Unavail able Mynor Broussard MD Unavailable [phone] Keisha Dotson MD Unavailable Galo Burrell MD Unavailable Unavailable Cristina Wood Unavailable Diana Desir [facility] Unavailable [phone] Rain Galaviz PA-C Unavailable Summer Lara MD Unavailable [phone] Summer Lara MD Unavailable [phone] Summer Lara MD Unavailable [phone] Tavia Wyatt MD Unavailable Unavailable Johnny Murillo MD Unavailable [phone] Erica Farrell APRN BRINE TANK SEPARATOR OPERATOR Unavailable Teresita Bean [facility] Unavailable Tavia Wyatt MD Unavailable Unavailable Diana Desir [facility] Unavailable [phone] Rich Barrett MD Unavailable Neil Kent MD Unavailable Roney Story DPM Unavailable [phone] Erica Farrell CLERICAL AIDE TEACHER BRINE TANK SEPARATOR OPERATOR Unavailable + Desir Diana [place] [facility] Unavailable [phone] Jelena David OD Unavailable Galo Burrell MD Unavailable Unavailable Livan Sharif MD Unavailable + Livan Sharif MD Unavailable + Catherine Cm MD Unavailable + Valery Veronica PA-C Unavailable [phone] Catherine Cm MD Unavailable + Johnny Murillo MD Unavailable [phone] Brea Quinn CLERICAL AIDE TEACHER BRINE TANK SEPARATOR OPERATOR Unavailable [phone] Brea Quinn CLERICAL AIDE TEACHER BRINE TANK SEPARATOR OPERATOR Unavailable [phone] Jose Francisco Johnson MD Unavailable Livan Sharif MD Unavailable + Catherine Cm MD Unavailable + Sydnie Martinez RN Unavailable Unavailable Alfonso Renteria MD Unavailable [phone] Esha Grimm PA-C Primary Care Provider [phone] Cheng Todd PA-C Unavailable [phone] Radha Lomeli CLERICAL AIDE TEACHER BRINE TANK SEPARATOR OPERATOR Unavailable [phone] Jelena David OD Unavailable Pao Joseph RN Unavailable Unavailable Esha Grimm PA-C Unavailable [phone] Valery Veronica PA-C Unavailable [phone] Rey Tay MD Unavailable ZepedaRocky Unavailable Philip Dumont MD Unavailable [phone] Encounter Details Date Type Department Care Team (Late st Contact Info) Description 02/06/2021 [facility] Medical Advice [address] [address] Bob Diop Social History Tobacco [...] week 08/07/2020 [facility] More than 4 times [...] Answer Date Recorded PHQ-2 Score 3 09/29/2020 [facility] - Occupational [...] in a mcfp (including now)? No 08/11/2020 [place] Depression Scale Answer Date Recorded [place] Depression Score 5 01/14/2021 Last EPDS Self [...] [facility] Imaging [address] [place]. [place] [phone] Lauren Claudio PA-C [address] [place] [address] 11/03/2023 8:00 AM CDT Office Visit [address] [phone] Valery Veronica PA-C 909 [place] [address] 11/29/2023 8:00 AM CDT Office Visit [facility] [phone] [place] [phone] Esha Grimm PA-C [address] [place] [address] 12/19/2023 11:30 AM CDT Hospital Encounter [facility] [place] 909 [facility] 5th [place] [phone] Rocky Zepeda, DO 500 [place] [address] 12/19/2023 11:30 AM CDT - 12/19/2023 12:00 PM CDT Surgery [facility] [address] [phone] Rocky Zepeda, DO 500 [place], [place] [phone] Esophagoscopy, gastroscopy, duodenoscopy (EGD), combined 01/02/2024 8:00 AM CDT Office Visit [facility] [address] [phone] Lauren Claudio PA-C [address] [place], [place] [phone] Kelli Perez MD [address] [place] [address] [phone] Scheduled Procedures Name Priority Associated Diagnoses Date/Ti co ESOPHAGOGASTRODUODENOSCOPY Eosinophilic esophagitis Esophageal dysphagia 12/19/2023 11:30 AM CDT documented as of this encounter Visit Diagnoses Not on filedocumented in this encounter Additional Health Concerns Infection Onset Date Last Indicated Resolved Time Rule Out COVID-19 05/11/2021 05/11/2021 05/13/2021 10:18 AM CDT Rule Out COVID-19 07/13/2021 07/13/2021 07/14/2021 3:04 PM COORDINATOR OF GENETIC SERVICES Rule Out COVID-19 07/18/2021 07/18/2021 07/20/2021 1:56 PM COORDINATOR OF GENETIC SERVICES COVID-19 07/18/2021 07/18/2021 08/08/2021 11:3 9 PM COORDINATOR OF GENETIC SERVICES Rule Out COVID-19 12/18/2021 12/18/2021 12/19/2021 11:34 AM CDT Rule Out COVID-19 02/24/2022 02/24/2022 02/25/2022 1:08 PM CDT Rule Out COVID-19 04/26/2022 04/26/2022 04/26/2022 6:47 AM CDT Rule Out COVID-19 05/17/2022 05/17/2022 05/17/2022 10:20 PM COORDINATOR OF GENETIC SERVICES Rule Out COVID-19 06/09/2022 06/09/2022 06/09/2022 9:35 AM COORDINATOR OF GENETIC SERVICES COVID-19 06/09/2022 06/09/2022 06/30/2022 11:4 1 PM COORDINATOR OF GENETIC SERVICES Rule Out COVID-19 11/10/2022 11/10/2022 11/11/2022 12:17 PM CDT Rule Out COVID-19 03/07/2023 03/07/2023 03/07/2023 1:20 PM CDT Assessment Noted Time PHQ-9 Depression Total Score: 6 09/30/19 3:25 PM CDT documented as of this encounter Care Teams Heat Welder [employer] Relationship Specialty Start Date End Date Marija Edgar APRN BRINE TANK SEPARATOR OPERATOR PCP - General Nurse Practitioner 04/30/20 04/14/23 Esha Grimm PA-C [address] [place] [phone] PCP - General Family Medicine 05/04/23 Lita Oseguera Personal Advocate & Liaison (PAL) 02/28/20 03/27/23 Chanelle Mccann APRN CNAdam [address] [address] Assigned OBGYN Provider 05/02/2005/09 Kyara De La Fuente, RN Specialty Testing Tech Neurology 06/04/20 03/05/21 Marija Edgar APRN BRINE TANK SEPARATOR OPERATOR Assigned PCP 06/08/20 04/29/23 Mynor Broussard MD 6363 [facility] 500 [place] [address] Assigned Surgical Provider 06/01/20 11/28/21 Keisha Dotson MD 909 [place] [address] Assigned Neuroscience Provider 06/04/20 04/01/23 Galo Burrell MD Assigned Heart and Vascular Provider 10/05/20 04/02/22 Cristina Wood Financial Resource Worker 02/09/21 02/09/21 [facility] 3033 [place], [place] [phone] Pharmacist Pharmacist 04/17/21 Rain Galaviz PA-C [address] [place] [address] [address] [place] [address] Physician Solar Fabrication Technician Dermatology 04/28/21 Summer Lara MD [address] [place] [address] 103194 Assigned OBGYN Provider 05/10/2105/23 Summer Lara MD [address] [place] [address] Assigned OBGYN Provider 05/31/21 2 Summer Lara MD [address] [place] [address] Assigned OBGYN Provider 05/24/2105/30 Tavia Wyatt MD [address] [place] [address] [place] [address] Dermatology 07/14/21 Johnny Murillo MD [address] [place] [address] Assigned Musculoskeletal Provider 08/30/21 03/17/22 Erica Farrell APRN BRINE TANK SEPARATOR OPERATOR 6405 [facility] [address] [place] [address] Nurse Practitioner Cardiovascular Disease 09/09/[address] [facility] [address] [place] [address] Pharmacist Pharmacist 09/24/21 09/29/21 Tavia Wyatt MD Assigned Surgical Provider 11/29/21 05/07/22 [facility] [address] [place] [address] Assigned MTM Pharmacist 01/02/22 Rich Barrett MD 516 [facility] 9A [place] [address] Physician Ophthalmology 01/21/22 Neil Kent MD 500 [place] [address] Dermatology 02/24/22 Roney Story DPM [address] [facility] [address] [place] [address] Assigned Musculoskeletal Provider 03/20/22 08/13/22 Erica Farrell APRN BRINE TANK SEPARATOR OPERATOR 1700 [place] [address] Assigned Heart and Vascular Provider 04/03/22 04/16/22 Diana Desir, [facility] 3033 [place] [address] Assigned MTM Pharmacist 04/07/22 [place] [address] [place] [address] Assigned Surgical Provider 05/08/22 10/08/22 Galo Burrell MD Assigned Heart and Vascular Provider 04/17/22 06/11/22 Livan Sharif MD [address] [place] [id number] Cardiovascular Disease 05/14/22 Livan Sharif MD [address] [place] 968305 Assigned Heart and Vascular Provider 06/12/22 07/23/22 Catherine Cm MD [address] [place] [address] Cardiovascular Disease 07/21/22 Valery Veronica, PAUcheC [address] [place] [address] Physician Solar Fabrication Technician Dermatology 07/21/22 Catherine Cm MD [address] [address] Assigned Heart and Vascular Provider 07/24/22 11/05/22 Johnny Murillo MD [address] [place] [address] Assigned Musculoskeletal Provider 08/14/22 10/08/22 Brea Quinn APRN BRINE TANK SEPARATOR OPERATOR [address] [place] [address] Nurse Practitioner Dermatology 09/21/22 Brea Quinn APRN BRINE TANK SEPARATOR OPERATOR [address] [place] [address] Assigned Surgical Provider 10/09/22 [place] [address] [address] Assigned Musculoskeletal Provider 10/09/22 Livan Sharif MD [address] [address] Assigned Heart and Vascular Provider 11/06/22 11/12/22 Catherine Cm MD [address] [address] [place] [address] Assigned Heart and Vascular Provider 11/13/22 05/27/23 Sydnie Martinez RN Personal Advocate & Liaison (PAL) Family Medicine 03/28/23 07/31/23 Alfonso Renteria MD 5775 [facility] 200 [place] [address] Assigned Neuroscience Provider 04/02/23 Cheng Todd PA-C [address] [place], [place] [phone] Assigned PCP 04/30/23 07/15/23 Radha Lomeli APRN BRINE TANK SEPARATOR OPERATOR [address] [place] [address] Assigned Heart and Vascular Provider 05/28/23 Jelena David OD [facility] [place] [address] Ophthalmology 06/15/23 Pao Joseph RN Personal Advocate & Liaison (PAL) Nurse 08/01/23 Esha Grimm PA-C [address] [place] [address] Assigned PCP 07/16/23 Valery Veronica PA-C [address] [place] [address] 585575 Physician Solar Fabrication Technician Dermatology 09/19/23 Rey Tay MD [address] [place] [address] 281725 Gastroenterology 09/20/23 Rocky Zepeda DO [address] [place] [address] Physician Gastroenterology 09/20/23 Philip Dumont MD [address] [place] [address] [phone] Physician Ophthalmology 09/22/23 documented as of this encounter
--- OUTSIDE RECORDS SUMMARY | 2023-10-28 16:46 | XMS_ITS | Encounter Summary ---
Author Name Unknown Organization [place] Address [address] [place] [address] Care Team Providers Care Agency Development Manager Name Role Phone Lita Oseguera Unavailable Unavailable Marija Edgar APRN HIGHWAY ENGINEERING TEACHER Primary Care Provider Chanelle Gutierrez PASSENGER SOLICITOR CN Unavailab le Marija Edgar APRN HIGHWAY ENGINEERING TEACHER Unavailable Unavail able Mynor Broussard MD Unavailable [phone] Keisha Dotson MD Unavailable [phone] Galo Burrell MD Unavailable Unavailable Diana Desir [facility] Unavailable Rain Galaviz PA-C Unavailable Summer Lara MD Unavailable [phone] Summer Lara MD Unavailable [phone] Summer Lara MD Unavailable [phone] Tavia Wyatt MD Unavailable Unavailable Johnny Murillo MD Unavailable [phone] APRN HIGHWAY ENGINEERING TEACHER Unavailable Teresita Bean [facility] Unavailable [phone] Tavia Wyatt MD Unavailable Unavailable Diana Desir [facility] Unavailable Rich Barrett MD Unavailable Neil Kent MD Unavailable Roney Story DPM Unavailable Erica Farrell PASSENGER SOLICITOR HIGHWAY ENGINEERING TEACHER Unavailable Thang Diana [place] [facility] Unavailable Jelena David OD Unavailable [phone] Galo Burrell MD Unavailable Unavailable HoLivan MD Unavailable Livan Sharif MD Unavailable + Catherine Cm MD Unavailable + Valery Veronica PA-C Unavailable [phone] Catherine Cm MD Unavailable + Johnny Murillo MD Unavailable [phone] Brea Quinn PASSENGER SOLICITOR HIGHWAY ENGINEERING TEACHER Unavailable [phone] Brea Quinn PASSENGER SOLICITOR HIGHWAY ENGINEERING TEACHER Unavailable [phone] Jose Francisco Johnson MD Unavailable Livan Sharif MD Unavailable Catherine Cm MD Unavailable + Sydnie Martinez RN Unavailable Unavailable Alfonso Renteria MD Unavailable Esha Grimm-C Primary Care Provider Cheng Todd PA-C Unavailable Radha Lomeli PASSENGER SOLICITOR HIGHWAY ENGINEERING TEACHER Unavailable Jelena David OD Unavailable Pao Joseph RN Unavailable Unavailable Esha GrimmC Unavailable [phone] Valery Veronica PA-C Unavailable Rey Tay MD Unavailable Rocky Zepeda DO Unavailable Philip Dumont MD Unavailable [phone] Encounter Details Date Type Department Care Team (Late st Contact Info) Description 04/28/2021 [facility] Medical Advice [address] [address] Marija Edgar, A[place] HIGHWAY ENGINEERING TEACHER Social History Tobacco Use Types Packs/Day Years [...] How often do you attend chur or gnosticism services? More than 4 times per year [...] Answer Date Recorded PHQ-2 Score 0 04/02/2021 [facility] Occupat ional Health - Occupational Stress [...] in a group home (including now)? No 08/11/2020 [place] Depression Scale Answer Date Recorded [place] Depression Score 5 01/14/2021 Last EPDS Self [...] [facility] [address] [place] [address] Lauren Claudio PA-C [address] [place], [place] [phone] 11/03/2023 8:00 AM CDT Office Visit [address] [phone] Valery Veronica PA-C 903 [place] [address] 11/29/2023 8:00 AM CDT Office Visit [facility] [address] [place] [phone] Esah Grimm PA-C [address] [place] [phone] 12/19/2023 11:30 AM CDT Hospital Encounter [facility] 909 [facility] 5th [place] [phone] Rocky Zepeda, 500 [place], [place] [address]3075 12/19/2023 11:30 AM CDT - 12/19/2023 12:00 PM CDT Surgery [facility] 909 [facility] 5th [place] [phone] Rocky Zepeda DO 500 [place], [place] 832965 Esophagoscopy, gastroscopy, duodenoscopy (EGD), combined 01/02/2024 8:00 AM CDT Office Visit [address] [phone] Lauren Claudio, PABaldo [address] [place] [address] Kelli Perez MD [address] [place] [address] 083414 Scheduled Procedures Name Priority Associated Diagnoses Date/Ti mn ESOPHAGOGASTRODUODENOSCOPY Eosinophilic esophagitis Esophageal dysphagia 12/19/2023 11:30 AM CDT documented as of this encounter Visit Diagnoses Not on filedocumented in this encounter Additional Health Concerns Infection Onset Date Last Indicated Resolved Time Rule Out COVID-19 05/11/2021 05/11/2021 05/13/2021 10:18 AM CDT Rule Out COVID-19 07/13/2021 07/13/2021 07/14/2021 3:04 PM DIRECTOR IT Rule Out COVID-19 07/18/2021 07/18/2021 07/20/2021 1:56 PM DIRECTOR IT COVID-19 07/18/2021 07/18/2021 08/08/2021 11:3 9 PM DIRECTOR IT Rule Out COVID-19 12/18/2021 12/18/2021 12/19/2021 11:34 AM CDT Rule Out COVID-19 02/24/2022 02/24/2022 02/25/2022 1:08 PM CDT Rule Out COVID-19 04/26/2022 04/26/2022 04/26/2022 6:47 AM CDT Rule Out COVID-19 05/17/2022 05/17/2022 05/17/2022 10:20 PM DIRECTOR IT Rule Out COVID-19 06/09/2022 06/09/2022 06/09/2022 9:35 AM DIRECTOR IT COVID-19 06/09/2022 06/09/2022 06/30/2022 11:4 1 PM DIRECTOR IT Rule Out COVID-19 11/10/2022 11/10/2022 11/11/2022 12:17 PM CDT Rule Out COVID-19 03/07/2023 03/07/2023 03/07/2023 1:20 PM CDT Assessment Noted Time PHQ-9 Depression Total Score: 2 04/02/20 10:19 AM CDT documented as of this encounter Care Teams Agency Development Manager Relationship Specialty Start Date End Date Marija Edgar APRN HIGHWAY ENGINEERING TEACHER PCP - General Nurse Practitioner 04/30/20 04/14/23 Esha Grimm PA-C [address] [place] [phone] PCP - General Family Medicine 05/04/23 Lita Oseguera Personal Advocate & Liaison (PAL) 02/28/20 03/27/23 Chanelle Mccann APRN CNM [address] [address] Assigned OBGYN Provider 05/02/2005/09 Marija Edgar APRN HIGHWAY ENGINEERING TEACHER Assigned PCP 06/08/20 04/29/23 Mynor Broussard MD 6363 [facility] 500 [place] [address] Assigned Surgical Provider 06/01/20 11/28/21 Keisha Dotson MD 909 [place] [address] Assigned Neuroscience Provider 06/04/20 04/01/23 Galo Burrell MD Assigned Heart and Vascular Provider 10/05/20 04/02/22 Diana Desir, [facility] 3033 [place] [address] Pharmacist Pharmacist 04/17/21 Rain Galavzi PA-C [address] [place] [address] [address] [facility] [place] [address] Physician Seam Presser Dermatology 04/28/21 Summer Lara MD [address] [place] [address] Assigned OBGYN Provider 05/10/2105/23 Summer Lara MD [address] [place] [address] Assigned OBGYN Provider 05/31/21 2 Summer Lara MD [address] [place] [address] Assigned OBGYN Provider 05/24/2105/30 Tavia Wyatt MD [address] [place] [address] Dermatology 07/14/21 Johnny Murillo MD [address] [place] [address] Assigned Musculoskeletal Provider 08/30/21 03/17/[address]N HIGHW[address] ENGINEERING TEACHER [address] [place] [address] Nurse Practitioner Cardiovascular Disease 09/09/21 Teresita Bean, [facility] [address] [address] Pharmacist Pharmacist 09/24/21 09/29/21 Tavia Wyatt MD Assigned Surgical Provider 11/29/21 05/07/22 [facility] [address] [place] [address] Assigned MTM Pharmacist 01/02/22 Rich Barrett MD 516 [facility] 9A [place], [place] 087395 Physician Ophthalmology 01/21/22 Neil Kent MD 500 [place], [place] 839705 Dermatology 02/24/22 Roney Story DPM 18473 [facility] 300 [place], [place] 007677 Assigned Musculoskeletal Provider 03/20/22 08/13/[address]N HIGHWAY ENGINEERING TEACHER 1700 [place] [address] Assigned Heart and Vascular Provider 04/03/22 04/16/22 Diana Desir, [facility] 3033 [place] [address] Assigned MTM Pharmacist 04/07/22 Jelena David OD [address] [place] [address] Assigned Surgical Provider 05/08/22 10/08/22 Galo Burrell MD Assigned Heart and Vascular Provider 04/17/22 06/11/22 Livan Shairf MD [address] [place] [address] Cardiovascular Disease 05/14/22 Livan Sharif MD [address] [place] [address] Assigned Heart and Vascular Provider 06/12/22 07/23/22 Catherine Cm MD [address] [place] 452835 Cardiovascular Disease 07/21/22 Valery Veronica, PA-C 909 [place] [address] Physician Seam Presser Dermatology 07/21/22 Catherine Cm MD [address] [place] [address] Assigned Heart and Vascular Provider 07/24/22 11/05/22 Johnny Murillo MD [address] 202664 Assigned Musculoskeletal Provider 08/14/22 10/08/22 Brea Quinn APRN HIGHWAY ENGINEERING TEACHER 500 [place], [place] 110205 Nurse Practitioner Dermatology 09/21/22 Brea Quinn APRN HIGHWAY ENGINEERING TEACHER 6401 [facility] [place] 214802 Assigned Surgical Provider 10/09/22 [place] [address] [place] [address] 164917 Assigned Musculoskeletal Provider 10/09/22 Livan Sharif MD [address] [facility] [address] [place] 167135 Assigned Heart and Vascular Provider 11/06/22 11/12/22 Catherine Cm MD [address] [place] 801265 Assigned Heart and Vascular Provider 11/13/22 05/27/23 Sydnie Martinez RN Personal Advocate & Liaison (PAL) Family Medicine 03/28/23 07/31/23 Alfonso Renteria MD 5775 [facility] [address] 200 [place] [address] Assigned Neuroscience Provider 04/02/23 Cheng Todd PA-C [address] [place] [address] Assigned PCP 04/30/23 07/15/[address]ha Lomeli APRN HIGHW[address] ENGINEERING TEACHER [address] [place] [address] Assigned Heart and Vascular Provider 05/28/23 Jelena David OD [address] [place] [address] Ophthalmology 06/15/23 Pao Joseph, V[place] Personal Advocate & Liaison (PAL) Nurse 08/01/23 Esha Grimm PA-C [address] [place] [address]83 Assigned PCP 07/16/23 Valery Veronica PA-C [address] [place] [address] 846595 Physician Seam Presser Dermatology 09/19/23 Rey Tay MD [address] [place] [address] 514435 Gastroenterology 09/20/23 Rocky Zepeda DO [address] [place] [address] 716665 Physician Gastroenterology 09/20/23 Philip Dumont MD 516 [place] [address] Physician Ophthalmology 09/22/23 documented as of this encounter
--- OUTSIDE RECORDS SUMMARY | 2023-10-28 16:46 | XMS_ITS | Encounter Summary ---
Author Name Unknown Organization [facility] Address [address] [place] [address] Care Team Providers Care Stock Parts Fabricator Name Role Phone Lita Oseguera Unavailable Unavailable Marija Edgar APRN EXPERIMENTAL BOX TESTER Primary Care Provider Chanelle Gutierrez COOLER WORKER CN Unavailab le Marija Edgar APRN EXPERIMENTAL BOX TESTER Unavailable Unavail able Mynor Broussard MD Unavailable [phone] Keisha Dotson MD Unavailable [phone] Galo Burrell MD Unavailable Unavailable Diana Desir [facility] Unavailable [phone] Rain Galaviz PA-C Unavailable Summer Lara MD Unavailable [phone] Summer Lara MD Unavailable [phone] Summer Lara MD Unavailable [phone] Tavia Wyatt MD Unavailable Unavailable Johnny Murillo MD Unavailable Erica Farrell APRN EXPERIMENTAL BOX TESTER Unavailable Teresita Bean [facility] Unavailable [phone] Tavia Wyatt MD Unavailable Unavailable Diana Desir [facility] Unavailable Rich Barrett MD Unavailable Neil Kent MD Unavailable Roney Story DPM Unavailable Erica Farrell COOLER WORKER EXPERIMENTAL BOX TESTER Unavailable Thang Diana [place] [facility] Unavailable Jelena David OD Unavailable [phone] Galo Burrell MD Unavailable Unavailable HoLivan MD Unavailable Livan Sharif MD Unavailable + Catherine Cm MD Unavailable + Valery Veronica PA-C Unavailable [phone] Catherine Cm MD Unavailable + Johnny Murillo MD Unavailable [phone] Brae Quinn COOLER WORKER EXPERIMENTAL BOX TESTER Unavailable [phone] Brea Quinn COOLER WORKER EXPERIMENTAL BOX TESTER Unavailable [phone] Jose Francisco Johnson MD Unavailable Livan Sharif MD Unavailable Catherine Cm MD Unavailable + Sydnie Martinez RN Unavailable Unavailable Alfonso Renteria MD Unavailable Esha Grimm-C Primary Care Provider Cheng Todd PA-C Unavailable Radha Lomeli COOLER WORKER EXPERIMENTAL BOX TESTER Unavailable Jelena David OD Unavailable Pao Joseph RN Unavailable Unavailable Esha GrimmC Unavailable [phone] Valery Veronica PA-C Unavailable Rey Tay MD Unavailable Rocky Zepeda DO Unavailable Philip Dumont MD Unavailable [phone] Encounter Details Date Type Department Care Team (Late st Contact Info) Description 04/17/2021 [facility] Medical Advice [address] [address] Marija Edgar, ARLENE EXPERIMENTAL BOX TESTER Social History Tobacco Use Types Packs/Day Years [...] How often do you attend chur or adventist services? More than 4 times per year [...] health care facility (including now)? No 08/11/2020 [place] Depression Scale Answer Date Recorded [place] Depression Score 5 01/14/2021 Last EPDS Self [...] [facility] [address] [place] [address] Lauren Claudio PA-C [address] [place], [place] [phone] 11/03/2023 8:00 AM CDT Office Visit [address] [phone] Valery Veronica PA-C 909 [place] [address] 11/29/2023 8:00 AM CDT Office Visit [facility] [address] [place] [phone] Esha Grimm PA-C [address] [place] [phone] 12/19/2023 11:30 AM CDT Hospital Encounter [facility] 909 [facility] 5th [place] [phone] Rocky Zepeda, DO 500 [place], [place] 442055 12/19/2023 11:30 AM CDT - 12/19/2023 12:00 PM CDT Surgery [facility] 909 [facility] 5th [place] [phone] Rocky Zepeda DO 500 [place], [place] 441645 Esophagoscopy, gastroscopy, duodenoscopy (EGD), combined 01/02/2024 8:00 AM CDT Office Visit [address] [phone] Lauren Claudio, PABaldo [address] [place] [address] Kelli Perez MD [address] [place] [address] 727684 Scheduled Procedures Name Priority Associated Diagnoses Date/Ti tn ESOPHAGOGASTRODUODENOSCOPY Eosinophilic esophagitis Esophageal dysphagia 12/19/2023 11:30 AM CDT documented as of this encounter Visit Diagnoses Not on filedocumented in this encounter Additional Health Concerns Infection Onset Date Last Indicated Resolved Time Rule Out COVID-19 05/11/2021 05/11/2021 05/13/2021 10:18 AM CDT Rule Out COVID-19 07/13/2021 07/13/2021 07/14/2021 3:04 PM MARBLE CUTTER OPERATOR Rule Out COVID-19 07/18/2021 07/18/2021 07/20/2021 1:56 PM MARBLE CUTTER OPERATOR COVID-19 07/18/2021 07/18/2021 08/08/2021 11:3 9 PM MARBLE CUTTER OPERATOR Rule Out COVID-19 12/18/2021 12/18/2021 12/19/2021 11:34 AM CDT Rule Out COVID-19 02/24/2022 02/24/2022 02/25/2022 1:08 PM CDT Rule Out COVID-19 04/26/2022 04/26/2022 04/26/2022 6:47 AM CDT Rule Out COVID-19 05/17/2022 05/17/2022 05/17/2022 10:20 PM MARBLE CUTTER OPERATOR Rule Out COVID-19 06/09/2022 06/09/2022 06/09/2022 9:35 AM MARBLE CUTTER OPERATOR COVID-19 06/09/2022 06/09/2022 06/30/2022 11:4 1 PM MARBLE CUTTER OPERATOR Rule Out COVID-19 11/10/2022 11/10/2022 11/11/2022 12:17 PM CDT Rule Out COVID-19 03/07/2023 03/07/2023 03/07/2023 1:20 PM CDT Assessment Noted Time PHQ-9 Depression Total Score: 2 04/02/20 10:19 AM CDT documented as of this encounter Care Teams Stock Parts Fabricator Relationship Specialty Start Date End Date Marija Edgar APRN EXPERIMENTAL BOX TESTER PCP - General Nurse Practitioner 04/30/20 04/14/23 Esha Grimm PA-C [address] [place] [phone] PCP - General Family Medicine 05/04/23 Lita Oseguera Personal Advocate & Liaison (PAL) 02/28/20 03/27/23 Chanelle Mccann APRN CNM [address] [address] Assigned OBGYN Provider 05/02/2005/09 Marija Edgar APRN EXPERIMENTAL BOX TESTER Assigned PCP 06/08/20 04/29/23 Mynor Broussard MD 6363 [facility] 500 [place] [address] Assigned Surgical Provider 06/01/20 11/28/21 Keisha Dotson MD 909 [place] [address] Assigned Neuroscience Provider 06/04/20 04/01/23 Galo Burrell MD Assigned Heart and Vascular Provider 10/05/20 04/02/22 Diana Desir, [facility] [address] [place] [address] Pharmacist Pharmacist 04/17/21 Rain Galaviz PA-C [address] [place] [address] DR RAZO [facility] [place] [address] Physician Ammonia Box Operator Dermatology 04/28/21 Summer Lara MD [address] [place] [address] Assigned OBGYN Provider 05/10/2105/23 Summer Lara MD [address] [place] [address] Assigned OBGYN Provider 05/31/21 2 Summer Lara MD [address] [place] [address] Assigned OBGYN Provider 05/24/2105/30 Tavia Wyatt MD [address] [place] [address] Dermatology 07/14/21 Johnny Murillo MD [address] [place] [address] Assigned Musculoskeletal Provider 08/30/21 03/17/22 Erica Farrell APRN EXPERIMENTAL BOX TESTER [address] [place] [address] Nurse Practitioner Cardiovascular Disease 09/09/21 Teresita Bean, [facility] [address] [place] [address] Pharmacist Pharmacist 09/24/21 09/29/21 Tavia Wyatt MD Assigned Surgical Provider 11/29/21 05/07/22 [facility] [address] [place] [address] Assigned MTM Pharmacist 01/02/22 Rich Barrett MD 516 [facility] 9A [place], [place] 382275 Physician Ophthalmology 01/21/22 Neil Kent MD 500 [place], [place] [phone] Dermatology 02/24/22 Roney Story DPM [address] [facility] 300 [place], [place] 014897 Assigned Musculoskeletal Provider 03/20/22 08/13/22 Erica Farrell APRN EXPERIMENTAL BOX TESTER 1700 [place] [address] Assigned Heart and Vascular Provider 04/03/22 04/16/22 Diana Desir, [facility] 3033 [place] [address] Assigned MTM Pharmacist 04/07/22 Jelena David OD [address] [facility] [address] Assigned Surgical Provider 05/08/22 10/08/22 Galo Burrell MD Assigned Heart and Vascular Provider 04/17/22 06/11/22 Livan Sharif MD [address] [place] [address] Cardiovascular Disease 05/14/22 Livan Sharif MD [address] [place] [address] Assigned Heart and Vascular Provider 06/12/22 07/23/22 Catherine Cm MD [address] [place] 8[address] Cardiovascular Disease 07/21/22 Valery Veronica, PA-C 909 [place] [address] Physician Ammonia Box Operator Dermatology 07/21/22 Catherine Cm MD [address] [facility] [facility] [address] [place] [address] Assigned Heart and Vascular Provider 07/24/22 11/05/22 Johnny Murillo MD [address] 326284 Assigned Musculoskeletal Provider 08/14/22 10/08/22 Brea Quinn APRN EXPERIMENTAL BOX TESTER 500 [place], [place] 582045 Nurse Practitioner Dermatology 09/21/22 Brea Quinn APRN EXPERIMENTAL BOX TESTER 6401 [facility] [place] 602522 Assigned Surgical Provider 10/09/22 [place] [address] [phone] Assigned Musculoskeletal Provider 10/09/22 Livan Sharif MD [address] [facility] [address] [place] [address] Assigned Heart and Vascular Provider 11/06/22 11/12/22 Catherine Cm MD [address] [facility] [facility] [address] [place] 346655 Assigned Heart and Vascular Provider 11/13/22 05/27/23 Sydnie Martinez RN Personal Advocate & Liaison (PAL) Family Medicine 03/28/23 07/31/23 Alfonso Renteria MD [address] [place] [address] Assigned Neuroscience Provider 04/02/23 Cheng Todd PA-C [address] [place] [address] Assigned PCP 04/30/23 07/15/23 Radha Lomeli APRN EXPERIMENTAL BOX TESTER [address] [place], [place] 459945 Assigned Heart and Vascular Provider 05/28/23 Jelena David OD [address] [facility] [address] Ophthalmology 06/15/23 Pao Joseph, VJ Personal Advocate & Liaison (PAL) Nurse 08/01/23 Esha Grimm PA-C [address] [place] [address]461483 Assigned PCP 07/16/23 Valery Veronica PA-C [address] [place] [address] 718065 Physician Ammonia Box Operator Dermatology 09/19/23 Rey Tay MD [address] [place] [address] 503645 Gastroenterology 09/20/23 Rocky Zepeda DO [address] [place] [address] Physician Gastroenterology 09/20/23 Philip Dumont MD [facility] [place] [address] Physician Ophthalmology 09/22/23 documented as of this encounter
--- OUTSIDE RECORDS SUMMARY | 2023-10-28 16:46 | XMS_ITS | Encounter Summary ---
Author Name Unknown Organization [facility] Address [address] [place] [address] Care Team Providers Care Textile Machine Mechanic Name Role Phone Lita Oseguera Unavailable Unavailable Marija Edgar APRN FORENSIC PSYCHOLOGIST Primary Care Provider Chanelle Gutierrez INSPECTOR TUBES CN Unavailab le Marija Edgar APRN FORENSIC PSYCHOLOGIST Unavailable Unavail able Mynor Broussard MD Unavailable [phone] Keisha Dotson MD Unavailable [phone] Galo Burrell MD Unavailable Unavailable Diana Desir [facility] Unavailable Rain Galaviz PA-C Unavailable Summer Lara MD Unavailable [phone] Summer Lara MD Unavailable [phone] Summer Lara MD Unavailable [phone] Tavia Wyatt MD Unavailable Unavailable Johnny Murillo MD Unavailable [phone] Erica Farrell APRN FORENSIC PSYCHOLOGIST Unavailable Teresita Bean [facility] Unavailable Tavia Wyatt MD Unavailable Unavailable Diana Desir [facility] Unavailable Rich Barrett MD Unavailable Neil Kent MD Unavailable Roney Story DPM Unavailable Erica Farrell INSPECTOR TUBES FORENSIC PSYCHOLOGIST Unavailable Thang Diana [place] [facility] Unavailable Jelena David OD Unavailable [phone] Galo Burrell MD Unavailable Unavailable HoLivan MD Unavailable Livan Sharif MD Unavailable + Catherine Cm MD Unavailable + Valery Veronica PA-C Unavailable [phone] Catherine mC MD Unavailable + Johnny Murillo MD Unavailable [phone] Brea Quinn INSPECTOR TUBES FORENSIC PSYCHOLOGIST Unavailable [phone] Brea Quinn INSPECTOR TUBES FORENSIC PSYCHOLOGIST Unavailable [phone] Jose Francisco Johnson MD Unavailable Livan Sharif MD Unavailable Catherine Cm MD Unavailable + Sydnie Martinez RN Unavailable Unavailable Alfonso Renteria MD Unavailable Esha Grimm-C Primary Care Provider Cheng Todd PA-C Unavailable Radha Lomeli INSPECTOR TUBES FORENSIC PSYCHOLOGIST Unavailable Jelena David OD Unavailable Pao Joseph RN Unavailable Unavailable Esha GrimmC Unavailable [phone] Valery Veronica PA-C Unavailable Rey Tay MD Unavailable Rocky Zepeda DO Unavailable Philip Dumont MD Unavailable [phone] Encounter Details Date Type Department Care Team (Late st Contact Info) Description 05/05/2021 [facility] Medical Advice [address] [address] Lauren Gan, RN Social History [...] Date Recorded PHQ-2 Score 0 04/02/2021 [facility] of Occupat ional Health - Occupational Stress [...] in a snf (including now)? No 08/11/2020 [place] Depression Scale Answer Date Recorded [place] Depression Score 5 01/14/2021 Last EPDS Self [...] CDT Appointment [facility] [address] [place] [address] Lauren Claudio PA-C [address] [place], [place] [phone] 11/03/2023 8:00 AM CDT Office Visit [address] [phone] Valery Veronica PA-C 909 [place] [address] 11/29/2023 8:00 AM CDT Office Visit [facility] [address] [place] [phone] Esha Grimm PA-C [address] [place] [phone] 12/19/2023 11:30 AM CDT Hospital Encounter [facility] 909 [facility] 5th [place] [phone] Rocky Zepeda, DO 500 [place], [place] [address]65 12/19/2023 11:30 AM CDT - 12/19/2023 12:00 PM CDT Surgery [facility] 909 [facility] 5th [place] [phone] Rocky Zepeda DO 500 [place], [place] 4845[address] Esophagoscopy, gastroscopy, duodenoscopy (EGD), combined 01/02/2024 8:00 AM CDT Office Visit [address] [phone] Lauren Claudio, PABaldo [address] [place] [address] [phone] Kelli Perez MD [address] [place] [address] 436364 Scheduled Procedures Name Priority Associated Diagnoses Date/Ti ut ESOPHAGOGASTRODUODENOSCOPY Eosinophilic esophagitis Esophageal dysphagia 12/19/2023 11:30 AM CDT documented as of this encounter Visit Diagnoses Not on filedocumented in this encounter Additional Health Concerns Infection Onset Date Last Indicated Resolved Time Rule Out COVID-19 05/11/2021 05/11/2021 05/13/2021 10:18 AM CDT Rule Out COVID-19 07/13/2021 07/13/2021 07/14/2021 3:04 PM RECORDS TECH Rule Out COVID-19 07/18/2021 07/18/2021 07/20/2021 1:56 PM RECORDS TECH COVID-19 07/18/2021 07/18/2021 08/08/2021 11:3 9 PM RECORDS TECH Rule Out COVID-19 12/18/2021 12/18/2021 12/19/2021 11:34 AM CDT Rule Out COVID-19 02/24/2022 02/24/2022 02/25/2022 1:08 PM CDT Rule Out COVID-19 04/26/2022 04/26/2022 04/26/2022 6:47 AM CDT Rule Out COVID-19 05/17/2022 05/17/2022 05/17/2022 10:20 PM RECORDS TECH Rule Out COVID-19 06/09/2022 06/09/2022 06/09/2022 9:35 AM RECORDS TECH COVID-19 06/09/2022 06/09/2022 06/30/2022 11:4 1 PM RECORDS TECH Rule Out COVID-19 11/10/2022 11/10/2022 11/11/2022 12:17 PM CDT Rule Out COVID-19 03/07/2023 03/07/2023 03/07/2023 1:20 PM CDT Assessment Noted Time PHQ-9 Depression Total Score: 2 04/02/20 10:19 AM CDT documented as of this encounter Care Teams Textile Machine Mechanic Relationship Specialty Start Date End Date Marija Edgar APRN FORENSIC PSYCHOLOGIST PCP - General Nurse Practitioner 04/30/20 04/14/23 Esha Grimm PA-C [address] [place] [phone] PCP - General Family Medicine 05/04/23 Lita Oseguera Personal Advocate & Liaison (PAL) 02/28/20 03/27/23 Chanelle Mccann APRN CNM [address] [place] [address] Assigned OBGYN Provider 05/02/2005/09 Marija Edgar APRN FORENSIC PSYCHOLOGIST Assigned PCP 06/08/20 04/29/23 Mynor Broussard MD 6363 [facility] 500 [place] [address] Assigned Surgical Provider 06/01/20 11/28/21 Keisha Dotson MD 909 [place] [address] Assigned Neuroscience Provider 06/04/20 04/01/23 Galo Burrell MD Assigned Heart and Vascular Provider 10/05/20 04/02/22 Diana Desir, [facility] [address] [place] [address] Pharmacist Pharmacist 04/17/21 Rain Galaviz PA-C [address] [place] [address] [address] [place] [address] Physician Radar Engineering Teacher Dermatology 04/28/21 Summer Lara MD [address] [place] [address] Assigned OBGYN Provider 05/10/2105/23 Summer Lara MD [address] [place] [address] Assigned OBGYN Provider 05/31/21 2 Summer Lara MD [address] [place] [address] Assigned OBGYN Provider 05/24/2105/30 Tavia Wyatt MD [address] [place] [address] Dermatology 07/14/21 Johnny Murillo MD [address] [place] [address] Assigned Musculoskeletal Provider 08/30/21 03/17/22 Erica Farrell, INSPECTOR TUBES FORENSIC PSYCHOLOGIST [address] [place], [place] 44[address]75 Nurse Practitioner Cardiovascular Disease 09/09/21 Teresita Bean, [facility] [address] [place], [place] [phone] Pharmacist Pharmacist 09/24/21 09/29/21 Tavia Wyatt MD Assigned Surgical Provider 11/29/21 05/07/22 [facility] [address] [facility] [place] [address] Assigned MTM Pharmacist 01/02/22 Rich Barrett MD 516 [facility] 9A [place], [place] 435025 Physician Ophthalmology 01/21/22 Neil Kent MD 500 [place], [place] [phone] Dermatology 02/24/22 Roney Story DPM 420[address] [facility] [address] [place], [place] 093647 Assigned Musculoskeletal Provider 03/20/22 08/13/22 Erica Farrell APRN FORENSIC PSYCHOLOGIST 1700 [place] [address] Assigned Heart and Vascular Provider 04/03/22 04/16/22 Diana Desir, [facility] 3033 [place] [address] Assigned MTM Pharmacist 04/07/22 [place] OD [address] [place] [address] Assigned Surgical Provider 05/08/22 10/08/22 Galo Burrell MD Assigned Heart and Vascular Provider 04/17/22 06/11/22 Livan Sharif MD [address] [place] [address] Cardiovascular Disease 05/14/22 Livan Sharif MD [address] [place] [address] Assigned Heart and Vascular Provider 06/12/22 07/23/22 Catherine Cm MD [address] [place] 85[address] Cardiovascular Disease 07/21/22 Valery Veronica, PAUcheC 909 [place] [address] Physician Radar Engineering Teacher Dermatology 07/21/22 Catherine Cm MD [address] [facility] [address] [place] 7[address]25 Assigned Heart and Vascular Provider 07/24/22 11/05/22 Johnny Murillo MD [address] 306324 Assigned Musculoskeletal Provider 08/14/22 10/08/22 Brea Quinn APRN FORENSIC PSYCHOLOGIST 500 [place], [place] [phone] Nurse Practitioner Dermatology 09/21/22 Brea Quinn APRN FORENSIC PSYCHOLOGIST 6401 [facility] [place] [address] Assigned Surgical Provider 10/09/22 [place] [address] 594947 Assigned Musculoskeletal Provider 10/09/22 Livan Sharif MD [address] [facility] [address] [place] [address] Assigned Heart and Vascular Provider 11/06/22 11/12/22 Catherine Cm MD [address] [facility] [address] [place] 385585 Assigned Heart and Vascular Provider 11/13/22 05/27/23 Sydnie Martinez RN Personal Advocate & Liaison (PAL) Family Medicine 03/28/23 07/31/23 Alfonso Renteria MD [address] [facility] [address] [place] [address] Assigned Neuroscience Provider 04/02/23 Cheng Todd PA-C [address] [place], [place] [phone] Assigned PCP 04/30/23 07/15/23 Radha Lomeli APRN FORENSIC PSYCHOLOGIST [address] [place], [place] [address]585 Assigned Heart and Vascular Provider 05/28/23 Jelena David OD [address] [place] [address] Ophthalmology 06/15/23 Pao Joseph, VJ Personal Advocate & Liaison (PAL) Nurse 08/01/23 Esha Grimm PA-C [address] [place] [phone] Assigned PCP 07/16/23 Valery Veronica PA-C [address] [place] [address] 496295 Physician Radar Engineering Teacher Dermatology 09/19/23 Rey Tay MD [address] [place] [address] 487445 Gastroenterology 09/20/23 Rocky Zepeda DO [address] [place] [address] 475455 Physician Gastroenterology 09/20/23 Philip Dumont MD [address] [place] [address] Physician Ophthalmology 09/22/23 documented as of this encounter
--- OUTSIDE RECORDS SUMMARY | 2023-10-28 16:47 | XMS_ITS | Encounter Summary ---
Author Name Unknown Organization [facility] Address [address] [place] [address] Care Team Providers Care Operating Room Scheduler Name Role Phone Lita Oseguera Unavailable Unavailable Marija Edgar APRN HAND MEXICAN FOOD MAKER Primary Care Provider Chanelle Gutierrez STEAM PLANT RECORDS CLERK CNM Unavailab le Kyara De La Fuente RN Unavailable [phone] Marija Edgar APRN HAND MEXICAN FOOD MAKER Unavailable Unavail able Mynor Broussard MD Unavailable [phone] Keisha Dotson MD Unavailable Stacey Briones FOCUSED FACTORY MANAGER Unavailable [phone] Lesley Moody CHW Unavailable Mary Mejia Unavailable Unavailable Lita Oseguera Unavailable Unavailable Galo Burrell MD Unavailable Unavailable Cristina Wood Unavailable Lesley Moody CHW Unavailable [phone] Meredith Bedoya Unavailable Unavailable Cristina Wood Unavailable Diana Desir [facility] Unavailable [phone] Rain Galaviz PA-C Unavailable Summer Lara MD Unavailable [phone] Summer Lara MD Unavailable [phone] Summer Lara MD Unavailable [phone] Tavia Wyatt MD Unavailable Unavailable SembraJohnny ortiz MD Unavailable [phone] Erica Farrell STEAM PLANT RECORDS CLERK HAND MEXICAN FOOD MAKER Unavailable + Teresita Bean [facility] Unavailable Tavia Wyatt MD Unavailable Unavailable Diana Desir [facility] Unavailable [phone] Rich Barrett MD Unavailable +[phone] Neil Kent MD Unavailable Roney Story DPM Unavailable [phone] Erica Farrell STEAM PLANT RECORDS CLERK HAND MEXICAN FOOD MAKER Unavailable + Diana Desir [facility] Unavailable [phone] Jelena David Radha Unavailable Galo Burrell MD Unavailable Unavailable Livan Sharif MD Unavailable + Livan Sharif MD Unavailable + Catherine Cm MD Unavailable + Valery Veronica PA-C Unavailable [phone] Catherine Cm MD Unavailable + Johnny Murillo MD Unavailable +1- Brea Quinn STEAM PLANT RECORDS CLERK HAND MEXICAN FOOD MAKER Unavailable +1- Brea Quinn STEAM PLANT RECORDS CLERK HAND MEXICAN FOOD MAKER Unavailable [phone] Jose Francisco Johnson MD Unavailable Livan Sharif MD Unavailable + Catherine Cm MD Unavailable + Sydnie Martinez RN Unavailable Unavailable Alfonso Renteria MD Unavailable [phone] Esha GrimmC Primary Care Provider [phone] Cheng ToddC Unavailable [phone] Radha Lomeli APRN HAND MEXICAN FOOD MAKER Unavailable [phone] Jelena David OD Unavailable [phone] Pao Joseph RN Unavailable Unavailable Esha Grimm PA-C Unavailable [phone] Valery VeronicaC Unavailable [phone] Rey Tay MD Unavailable Rocky Zepeda DO Unavailable Philip Dumont MD Unavailable [phone] Reason for Visit * Reason Onset Date Comments MyChart Communication 09/02/2020 Encounter Details Date Type Department Care Team (Latest Contact Info) Description 09/02/2020 MyC Medical Advice [address] [address] Marija Edgar APRN HAND MEXICAN FOOD MAKER MyChart Communication Social History Tobacco Use Types [...] PHQ-2 Score 0 [facility] Answer Date [...] COVID-19? No / Unsure 09/05/2020 2:50 PM PHOTO OFFSET PRINTER documented as of this encounter Miscellaneous Notes * Telephone Encounter - Ever Cardozo MA - 09/03/2020 10:34 AM CST Responded to patient as below. Ever Cardozo INSURANCE ADMINISTRATIVE ASSISTANT ([facility]) O OFFSET PRINTER documented in this encounter Plan of Treatment Upcoming Encounters Date Type Department Care Team (Late st Contact Info) Description 11/01/2023 8:00 AM CDT Appointment [facility] [address] [place] [phone] Lauren Claudio PA-C [address] [place] [address] 11/03/2023 8:00 AM CDT Office Visit [address] [phone] Valery Veronica PA-C [address] [place] [address] 11/29/2023 8:00 AM CDT Office Visit [facility] [address] [place] [phone] Esha Grimm PA-C [address] [place] [phone] 12/19/2023 11:30 AM CDT Hospital Encounter [address] [phone] Rocky Zepeda DO 500 [place], [place] [address] 12/19/2023 11:30 AM CDT - 12/19/2023 12:00 PM CDT Surgery [address] [phone] Rocky Zepeda DO 500 [place] [address] Esophagoscopy, gastroscopy, duodenoscopy (EGD), combined 01/02/2024 8:00 AM CDT Office Visit [facility] [place] [address] [place] [phone] Lauren Claudio PA-C [address] [place] [address] Kelli Perez MD [address] [address] Scheduled Procedures Name Priority Associated Diagnoses Date/Ti [...] Out COVID-19 07/13/2021 07/13/2021 07/14/2021 3:04 PM PHOTO OFFSET PRINTER Rule Out COVID-19 07/18/2021 07/18/2021 07/20/2021 1:56 PM PHOTO OFFSET PRINTER COVID-19 07/18/2021 07/18/2021 08/08/2021 11:3 9 PM PHOTO OFFSET PRINTER Rule Out COVID-19 12/18/2021 12/18/2021 12/19/2021 11:34 AM CDT Rule Out COVID-19 02/24/2022 02/24/2022 02/25/2022 1:08 PM CDT Rule Out COVID-19 04/26/2022 04/26/2022 04/26/2022 6:47 AM CDT Rule Out COVID-19 05/17/2022 05/17/2022 05/17/2022 10:20 PM PHOTO OFFSET PRINTER Rule Out COVID-19 06/09/2022 06/09/2022 06/09/2022 9:35 AM PHOTO OFFSET PRINTER COVID-19 06/09/2022 06/09/2022 06/30/2022 11:4 1 PM PHOTO OFFSET PRINTER Rule Out COVID-19 11/10/2022 11/10/2022 11/11/2022 12:17 PM CDT Rule Out COVID-19 03/07/2023 03/07/2023 03/07/2023 1:20 PM CDT Assessment Noted Time PHQ-9 Depression Total Score: 9 06/25/20 7:04 AM PHOTO OFFSET PRINTER documented as of this encounter Care Teams Operating Room Scheduler Relationship Specialty Start Date End Date Marija Edgar APRN HAND MEXICAN FOOD MAKER PCP - General Nurse Practitioner 04/30/20 04/14/23 Esha Grimm PA-C [address] [place] [phone] PCP - General Family Medicine 05/04/23 Lita Oseguera Personal Advocate & Liaison (PAL) 02/28/20 03/27/23 Chanelle Mccann APRN CNM [address] [place] [address] 200 [place] [address] Assigned OBGYN Provider 05/02/2005/09 Kyara De La Fuente, RN Specialty Forepart Reducer Neurology 06/04/20 03/05/21 Marija Edgar APRN HAND MEXICAN FOOD MAKER Assigned PCP 06/08/20 04/29/23 Mynor Broussard MD 6363 [facility] 500 [place] [address] Assigned Surgical Provider 06/01/20 11/28/21 Keisha Dotson MD 9 [place], [place] 041265 Assigned Neuroscience Provider 06/04/20 04/01/23 Stacey Briones, FOCUSED FACTORY MANAGER Lead Forepart Reducer Primary Care - CC 08/11/2012/30 Lesley Moody, [facility] Community Health Worker 08/11/2010/01 NikiatimothyMary Financial Resource Worker 09/02/20 10/06/20 Lita Oseguera Personal Advocate & Liaison (PAL) Family Medicine 09/10/20 09/21/20 Galo Burrell MD Assigned Heart and Vascular Provider 10/05/20 04/02/22 Cristina Wood Financial Resource Worker 10/07/20 10/14/20 Lesley Moody, [facility] Community Health Worker 10/23/2012/30 Meredith Bedoya Financial Resource Worker 10/23/20 11/23/20 Cristina Wood Financial Resource Worker 02/09/21 02/09/21 Diana Desir, [facility] [address] [place] [address] Pharmacist Pharmacist 04/17/21 Rain Galaviz PA-C [address] [place] [address] [address] [place], [place] [phone] Physician Craft Manager Dermatology 04/28/21 Summer Lara MD [address] [place] [address] 205894 Assigned OBGYN Provider 05/10/2105/23 Summer Lara MD [address] [place] [address] 577194 Assigned OBGYN Provider 05/31/21 2 Summer Lara MD [address] [place] [address] Assigned OBGYN Provider 05/24/2105/30 Tavia Wyatt MD [address] [place] [address] Dermatology 07/14/21 Johnny Murillo MD [address] [place] [address] Assigned Musculoskeletal Provider 08/30/21 03/17/22 Erica Farrell APRN HAND MEXICAN FOOD MAKER 6405 [facility] [address] [place] [address] Nurse Practitioner Cardiovascular Disease 09/09/21 [facility] [address] [facility] [address] Pharmacist Pharmacist 09/24/21 09/29/21 Tavia Wyatt MD Assigned Surgical Provider 11/29/21 05/07/22 [facility] 3033 [place] [address] Assigned MTM Pharmacist 01/02/22 Rich Barrett MD 516 [facility] 9A [place], [place] 0865[address] Physician Ophthalmology 01/21/22 Neil Kent MD [address] [place] [address] Dermatology 02/24/22 Roney Story DPM [address] [facility] [address] [place] [address] Assigned Musculoskeletal Provider 03/20/22 08/13/22 Erica Farrell APRN HAND MEXICAN FOOD MAKER 1700 [place] [address] Assigned Heart and Vascular Provider 04/03/22 04/16/22 Diana Desir, [facility] 3033 [place], [place] 129126 Assigned MTM Pharmacist 04/07/22 Jelena David OD 3305 [facility] [place] [place] [address] Assigned Surgical Provider 05/08/22 10/08/22 Galo Burrell MD Assigned Heart and Vascular Provider 04/17/22 06/11/22 Liavn Sharif MD [address] [facility]00 [place] [address] Cardiovascular Disease 05/14/22 Livan Sharif MD [address] [facility]00 [place] [address] Assigned Heart and Vascular Provider 06/12/22 07/23/22 Catherine Cm MD [address] [facility]00 [place], [place] 618145 Cardiovascular Disease 07/21/22 Valery Veronica, PA-C [address] [place] [address] Physician Craft Manager Dermatology 07/21/22 Catherine Cm MD 6405 [facility]00 [place] [address] Assigned Heart and Vascular Provider 07/24/22 11/05/22 Johnny Murillo MD [address] [place] [address] Assigned Musculoskeletal Provider 08/14/22 10/08/22 Brea Quinn APRN HAND MEXICAN FOOD MAKER [address] [place] [address] 973335 Nurse Practitioner Dermatology 09/21/22 Brea Quinn APRN HAND MEXICAN FOOD MAKER [address] [place] [address] 987692 Assigned Surgical Provider 10/09/22 [place] [address] [address] Assigned Musculoskeletal Provider 10/09/22 Livan Sharif MD [address], [facility]00 [place] [address] Assigned Heart and Vascular Provider 11/06/22 11/12/22 Catherine Cm MD [address] [facility]00 [place] [address] Assigned Heart and Vascular Provider 11/13/22 05/27/23 Sydnie Martinez RN Personal Advocate & Liaison (PAL) Family Medicine 03/28/23 07/31/23 Alfonso Renteria MD [address] [facility] [address] 200 [place] [address] Assigned Neuroscience Provider 04/02/23 Cheng Todd PA-C [address] [place], [place] [phone] Assigned PCP 04/30/23 07/15/23 Radha Lomeli APRN HAND MEXICAN FOOD MAKER 6405 [facility] [address] [place] [address] Assigned Heart and Vascular Provider 05/28/23 Jelena David OD 3305 [facility] [place] [place] [address] Ophthalmology 06/15/23 Pao oJseph, VJ Personal Advocate & Liaison (PAL) Nurse 08/01/23 Esha Grimm PA-C [address] [place] [address]83 Assigned PCP 07/16/23 Valery Veronica PA-C [address] [place] [address] 516205 Physician Craft Manager Dermatology 09/19/23 Rey Tay MD [address] [place] [address] 659485 Gastroenterology 09/20/23 Rocky Zepeda DO [address] [place] [address] Physician Gastroenterology 09/20/23 Philip Dumont MD [address] [place] [address] Physician Ophthalmology 09/22/23 documented as of this encounter
--- OUTSIDE RECORDS SUMMARY | 2023-10-28 16:47 | XMS_ITS | Encounter Summary ---
Author Name Unknown Organization [facility] Address [address] [place] [address] Care Team Providers Care Building Construction Superintendent Name Role Phone Lita Oseguera Unavailable Unavailable Marija Edgar APRN WET WASHER MACHINE Primary Care Provider Chanelle Gutierrez PIPER HELPER CNM Unavailab le Kyara De La Fuente RN Unavailable [phone] Marija Edgar APRN WET WASHER MACHINE Unavailable Unavail able Mynor Broussard MD Unavailable [phone] Keisha Dotson MD Unavailable Galo Burrell MD Unavailable Unavailable Cristina Wood Unavailable Diana Desir [facility] Unavailable Rain Galaviz PA-C Unavailable Summer Lara MD Unavailable [phone] Summer Lara MD Unavailable [phone] Summer Lara MD Unavailable [phone] Tavia Wyatt MD Unavailable Unavailable Johnny Murillo MD Unavailable Erica Farrell APRN WET WASHER MACHINE Unavailable Teresita Bean [facility] Unavailable Tavia Wyatt MD Unavailable Unavailable Diana Desir [facility] Unavailable [phone] Rich Barrett MD Unavailable Neil Kent MD Unavailable Roney Story DPM Unavailable [phone] Erica aFrrell PIPER HELPER WET WASHER MACHINE Unavailable + Desir Diana [place] [facility] Unavailable [phone] Jelena David OD Unavailable Galo Burrell MD Unavailable Unavailable Livan Sharif MD Unavailable + Livan Sharif MD Unavailable + Catherine Cm MD Unavailable + Valery Veronica PA-C Unavailable [phone] Catherine Cm MD Unavailable + Johnny Murillo MD Unavailable [phone] Brea Quinn PIPER HELPER WET WASHER MACHINE Unavailable [phone] Brea Quinn PIPER HELPER WET WASHER MACHINE Unavailable [phone] Jose Francisco Johnson MD Unavailable Livan Sharif MD Unavailable + Catherine Cm MD Unavailable + Sydnie Martinez RN Unavailable Unavailable Alfonso Renteria MD Unavailable [phone] Esha Grimm PA-C Primary Care Provider [phone] Cheng Todd PA-C Unavailable [phone] Radha Lomeli PIPER HELPER WET WASHER MACHINE Unavailable [phone] Jelena David OD Unavailable Pao Joseph RN Unavailable Unavailable Esha Grimm PA-C Unavailable [phone] Valery Veronica PA-C Unavailable [phone] Rey Tay MD Unavailable ZepedaRocky Unavailable Philip Dumont MD Unavailable [phone] Encounter Details Date Type Department Care Team (Late st Contact Info) Description 01/02/2021 MyC Medical Advice [address] [address] Kierra Eller Social History Tobacco [...] do you attend chur or judaism services? More than 4 times per year [...] Answer Date Recorded PHQ-2 Score 3 09/29/2020 [facility] - Occupational Stress Questionnaire Answer Date [...] a long term (including now)? No 08/11/2020 Education Answer Date [...] [facility] [address] [place] [address] Lauren Claudio PA-C [address] [place], [place] [phone] 11/03/2023 8:00 AM CDT Office Visit [address] [phone] Valery Veronica PA-C 909 [place] [address] 11/29/2023 8:00 AM CDT Office Visit [facility] [address] [place] [phone] Esha Grimm PA-C [address] [place] [phone] 12/19/2023 11:30 AM CDT Hospital Encounter [facility] 909 [facility] 5th [place] [phone] Rocky Zepeda, DO 500 [place], [place] 7948[address] 12/19/2023 11:30 AM CDT - 12/19/2023 12:00 PM CDT Surgery [facility] 909 [facility] 5th [place] [phone] Rocky Zepeda DO 500 [place], [place] 335165 Esophagoscopy, gastroscopy, duodenoscopy (EGD), combined 01/02/2024 8:00 AM CDT Office Visit [address] [phone] Lauren Claudio, PABaldo [address] [place] [address] [phone] Kelli Perez MD [address] [place] [address] 029574 Scheduled Procedures Name Priority Associated Diagnoses Date/Ti mn ESOPHAGOGASTRODUODENOSCOPY Eosinophilic esophagitis Esophageal dysphagia 12/19/2023 11:30 AM CDT documented as of this encounter Visit Diagnoses Not on filedocumented in this encounter Additional Health Concerns Infection Onset Date Last Indicated Resolved Time Rule Out COVID-19 05/11/2021 05/11/2021 05/13/2021 10:18 AM CDT Rule Out COVID-19 07/13/2021 07/13/2021 07/14/2021 3:04 PM GLYCERIN OPERATOR Rule Out COVID-19 07/18/2021 07/18/2021 07/20/2021 1:56 PM GLYCERIN OPERATOR COVID-19 07/18/2021 07/18/2021 08/08/2021 11:3 9 PM GLYCERIN OPERATOR Rule Out COVID-19 12/18/2021 12/18/2021 12/19/2021 11:34 AM CDT Rule Out COVID-19 02/24/2022 02/24/2022 02/25/2022 1:08 PM CDT Rule Out COVID-19 04/26/2022 04/26/2022 04/26/2022 6:47 AM CDT Rule Out COVID-19 05/17/2022 05/17/2022 05/17/2022 10:20 PM GLYCERIN OPERATOR Rule Out COVID-19 06/09/2022 06/09/2022 06/09/2022 9:35 AM GLYCERIN OPERATOR COVID-19 06/09/2022 06/09/2022 06/30/2022 11:4 1 PM GLYCERIN OPERATOR Rule Out COVID-19 11/10/2022 11/10/2022 11/11/2022 12:17 PM CDT Rule Out COVID-19 03/07/2023 03/07/2023 03/07/2023 1:20 PM CDT Assessment Noted Time PHQ-9 Depression Total Score: 6 09/30/19 3:25 PM CDT documented as of this encounter Care Teams Building Construction Superintendent Relationship Specialty Start Date End Date Marija Edgar APRN WET WASHER MACHINE PCP - General Nurse Practitioner 04/30/20 04/14/23 Esha Grimm PA-C [address] [place] [phone] PCP - General Family Medicine 05/04/23 Lita Oseguera Personal Advocate & Liaison (PAL) 02/28/20 03/27/23 Chanelle Mccann APRN CNM [address] [address] Assigned OBGYN Provider 05/02/2005/09 Kyara De La Fuente, RN Specialty Poultry Farm Manager Neurology 06/04/20 03/05/21 Marija Edgar APRN WET WASHER MACHINE Assigned PCP 06/08/20 04/29/23 Mynor Broussard MD [address] [facility] [address] [place] [address] [place] [address] Assigned Surgical Provider 06/01/20 11/28/21 Keisha Dotson MD 909 [place], [place] 719785 Assigned Neuroscience Provider 06/04/20 04/01/23 Galo Burrell MD Assigned Heart and Vascular Provider 10/05/20 04/02/22 Cristina Wood Financial Resource Worker 02/09/21 02/09/21 Diana Desir, [facility] [address], [place] 8[address] Pharmacist Pharmacist 04/17/21 Rain Galaviz PA-C [address] [facility] [address] RAZO [address] [place] [address] Physician Critical Care Educator Dermatology 04/28/21 Summer Lara MD [address] [place] [address] 221424 Assigned OBGYN Provider 05/10/2105/23 Summer Lara MD [address] [place] [address] 656834 Assigned OBGYN Provider 05/31/21 2 Summer Lara MD [address] [place] [address] Assigned OBGYN Provider 05/24/2105/30 Tavia Wyatt MD [address] [place] [address] Dermatology 07/14/21 Johnny Murillo MD [address] [place] [address] Assigned Musculoskeletal Provider 08/30/21 03/17/22 Erica Farrell APRN WET WASHER MACHINE 6405 [facility] [address] [place] [address] Nurse Practitioner Cardiovascular Disease 09/09/21 [facility] [address] [place], [place] [phone] Pharmacist Pharmacist 09/24/21 09/29/21 Tavia Wyatt MD Assigned Surgical Provider 11/29/21 05/07/22 [facility] [address] [place] [address] Assigned MTM Pharmacist 01/02/22 Rich Barrett MD [address] 028695 Physician Ophthalmology 01/21/22 Neil Kent MD [address] [place] [address] 652725 Dermatology 02/24/22 [place]oney [place] D[place] [address] [facility] [address] [place], [place] 947077 Assigned Musculoskeletal Provider 03/20/22 08/13/22 Erica Farrell APRN WET WASHER MACHINE 1700 [place] [address] Assigned Heart and Vascular Provider 04/03/22 04/16/22 Diana Desir, [facility] 3033 [place] [address] Assigned MTM Pharmacist 04/07/22 Jelena David OD [address] [facility] [place] [address] Assigned Surgical Provider 05/08/22 10/08/22 Galo Burrell MD Assigned Heart and Vascular Provider 04/17/22 06/11/22 Livan Sharif MD [address] [place] [address] Cardiovascular Disease 05/14/22 Livan Sharif MD [address] [place] [address] Assigned Heart and Vascular Provider 06/12/22 07/23/22 Catherine Cm MD [address] [place] [address] Cardiovascular Disease 07/21/22 Valery Veronica PA-C 909 [place] [address] Physician Critical Care Educator Dermatology 07/21/22 Catherine Cm MD [address] [facility] [address] [place] 123515 Assigned Heart and Vascular Provider 07/24/22 11/05/22 Johnny Murillo MD [facility] [address] [address] Assigned Musculoskeletal Provider 08/14/22 10/08/22 Brea Quinn APRN WET WASHER MACHINE [address] [place] [address] 169935 Nurse Practitioner Dermatology 09/21/22 Brea Quinn APRN WET WASHER MACHINE [address] [place] [address] [place] 748272 Assigned Surgical Provider 10/09/22 [place] [address] [place] [address] 092367 Assigned Musculoskeletal Provider 10/09/22 Livan Sharif MD [address] [place], [address] [place] 675495 Assigned Heart and Vascular Provider 11/06/22 11/12/22 Catherine Cm MD [address] [place] 337765 Assigned Heart and Vascular Provider 11/13/22 05/27/23 Sydnie Martinez, VJ Personal Advocate & Liaison (PAL) Family Medicine 03/28/23 07/31/23 Alfonso Renteria MD 5775 [facility] [address] 200 [place] [address] Assigned Neuroscience Provider 04/02/23 Cheng Todd PA-C [address] [place], [place] [phone] Assigned PCP 04/30/23 07/15/23 Radha Lomeli APRN WET WASHER MACHINE [address] [place], [place] 433205 Assigned Heart and Vascular Provider 05/28/23 Jelena David OD [address] [facility] [place] [address] Ophthalmology 06/15/23 Pao Joseph, VJ Personal Advocate & Liaison (PAL) Nurse 08/01/23 Esha Grimm PA-C [address] [place] [address]28[address] Assigned PCP 07/16/23 Valery Veronica PA-C 909 [place], [place] 747385 Physician Critical Care Educator Dermatology 09/19/23 Rey Tay MD 909 [place], [place] 880505 Gastroenterology 09/20/23 Rocky Zepeda DO [address] [place] [address] Physician Gastroenterology 09/20/23 Philip Dumont MD [address] [place] [address] Physician Ophthalmology 09/22/23 documented as of this encounter
--- OUTSIDE RECORDS SUMMARY | 2023-10-28 16:47 | XMS_ITS | Encounter Summary ---
Author Name Unknown Organization [place] Address [address] [place] [address] Care Team Providers Care Intermediate Manager Name Role Phone Lita Oseguera Unavailable Unavailable Marija Edgar APRN HARDENING MACHINE OPERATOR HELPER Primary Care Provider Chanelle Gutierrez CORK MIXER CNM Unavailab le Kyara De La Fuente RN Unavailable [phone] Marija Edgar APRN HARDENING MACHINE OPERATOR HELPER Unavailable Unavail able Mynor Broussard MD Unavailable [phone] Keisha Dotson MD Unavailable Stacey Briones ENVIRONMENTAL MARKETING REPRESENTATIVE Unavailable [phone] Lesley Moody CHW Unavailable Mary Mejia Unavailable Unavailable Lita Oseguera Unavailable Unavailable Galo Burrell MD Unavailable Unavailable Cirstina Wood Unavailable Lesley Moody CHW Unavailable Meredith Bedoya Unavailable Unavailable Cristina Wood Unavailable Diana Desir [facility] Unavailable Rain Galaviz PA-C Unavailable Summer Lara MD Unavailable [phone] Summer Lara MD Unavailable [phone] Summer Lara MD Unavailable [phone] Tavia Wyatt MD Unavailable Unavailable SembraJohnny ortiz MD Unavailable +[phone] Erica Farrell CORK MIXER HARDENING MACHINE OPERATOR HELPER Unavailable + Teresita Bean [facility] Unavailable Tavia Wyatt MD Unavailable Unavailable Diana Desir [facility] Unavailable [phone] Rich Barrett MD Unavailable +[phone] Neil Kent MD Unavailable Roney Story DPM Unavailable [phone] Erica Farrell CORK MIXER HARDENING MACHINE OPERATOR HELPER Unavailable + Diana Desir [facility] Unavailable +[phone] Jelena David Radha Unavailable Galo Burrell MD Unavailable Unavailable Livan Sharif MD Unavailable + Livan Sharif MD Unavailable + Catherine Cm MD Unavailable + Valery Veronica PA-C Unavailable + [phone] Catherine Cm MD Unavailable + Johnny Muirllo MD Unavailable +1- Brea Quinn CORK MIXER HARDENING MACHINE OPERATOR HELPER Unavailable +1- Brea Quinn CORK MIXER HARDENING MACHINE OPERATOR HELPER Unavailable [phone] Jose Francisco Johnson MD Unavailable Livan Sharif MD Unavailable + Catherine Cm MD Unavailable + Sydnie Martinez RN Unavailable Unavailable Alfonso Renteria MD Unavailable +- [phone] Esha GrimmC Primary Care Provider Cheng ToddC Unavailable Radha Lomeli APRN HARDENING MACHINE OPERATOR HELPER Unavailable [phone] Jelena David OD Unavailable Pao Joseph RN Unavailable Unavailable Esha Grimm PA-C Unavailable [phone] Valery VeronicaC Unavailable [phone] Rey Tay MD Unavailable Rocky Zepeda DO Unavailable Philip Dumont MD Unavailable [phone] Reason for Visit * Reason Onset Date Comments MyChart Communication 09/08/2020 Encounter Details Date Type Department Care Team (Latest Contact Info) Description 09/08/2020 MyC Medical Advice [address] [address] Marija Edgar APRN HARDENING MACHINE OPERATOR HELPER MyChart Communication Social History Tobacco Use Types [...] often do you attend chur ch or samaritan services? More than 4 times per year [...] Answer Date Recorded PHQ-2 Score 0 [facility]12[facility]2020 [facility] Answer [...] COVID-19? No / Unsure 09/09/2020 10:09 AM GRAPHIC ART SALES REPRESENTATIVE documented as of this encounter Miscellaneous Notes * Telephone Encounter - Natasha Luis RN - 09/09/2020 7:29 AM CST See Actionality message, cardio ordered, pt cannot view echo [...] RN, BSN Message handled by CLINIC NURSE.' HIC ART SALES REPRESENTATIVE * Telephone Encounter - Ever Cardozo MA - 09/09/2020 7:08 AM CST Triage, could you please see if results are posted yet in regards to patients ultrasound. Ever Cardozo OPERATOR SPECIALIST COMMUNICATIONS (AAWI) HIC ART SALES REPRESENTATIVE documented in this encounter Plan of Treatment Upcoming Encounters Date Type Department Care Team (Late st Contact Info) Description 11/01/2023 8:00 AM CDT Appointment [facility] [address] [facility] [place] [phone] Lauren Claudio PA-C [address] [place], [place] [phone] 11/03/2023 8:00 AM CDT Office Visit [address] [phone] Valery Veronica PA-C [address] [place] [address] 11/29/2023 8:00 AM CDT Office Visit [facility] [id number] [place] [phone] Esha Grimm PA-C [address] [place] [address] 12/19/2023 11:30 AM CDT Hospital Encounter [facility] 9[address] [facility] 5th [place] [phone] Rocky Zepeda DO [address] [place] [address] 12/19/2023 11:30 AM CDT - 12/19/2023 12:00 PM CDT Surgery [facility] [address] [facility] [address] 5th [place] [phone] Rocky Zepeda, DO [address] [facility] [place] [address] Esophagoscopy, gastroscopy, duodenoscopy (EGD), combined 01/02/2024 8:00 AM CDT Office [facility] [address] [place] [phone] Lauren Claudio PA-C [address] [place] [address] Kelli Perez MD 606 24[facility] [address] [address] Scheduled Procedures Name Priority Associated [...] Out COVID-19 07/13/2021 07/13/2021 07/14/2021 3:04 PM GRAPHIC ART SALES REPRESENTATIVE Rule Out COVID-19 07/18/2021 07/18/2021 07/20/2021 1:56 PM GRAPHIC ART SALES REPRESENTATIVE COVID-19 07/18/2021 07/18/2021 08/08/2021 11:3 9 PM GRAPHIC ART SALES REPRESENTATIVE Rule Out COVID-19 12/18/2021 12/18/2021 12/19/2021 11:34 AM CDT Rule Out COVID-19 02/24/2022 02/24/2022 02/25/2022 1:08 PM CDT Rule Out COVID-19 04/26/2022 04/26/2022 04/26/2022 6:47 AM CDT Rule Out COVID-19 05/17/2022 05/17/2022 05/17/2022 10:20 PM GRAPHIC ART SALES REPRESENTATIVE Rule Out COVID-19 06/09/2022 06/09/2022 06/09/2022 9:35 AM GRAPHIC ART SALES REPRESENTATIVE COVID-19 06/09/2022 06/09/2022 06/30/2022 11:4 1 PM GRAPHIC ART SALES REPRESENTATIVE Rule Out COVID-19 11/10/2022 11/10/2022 11/11/2022 12:17 PM CDT Rule Out COVID-19 03/07/2023 03/07/2023 03/07/2023 1:20 PM CDT Assessment Noted Time PHQ-9 Depression Total Score: 9 06/25/20 7:04 AM GRAPHIC ART SALES REPRESENTATIVE documented as of this encounter Care Teams Intermediate Manager Relationship Specialty Start Date End Date Marija Edgar APRN HARDENING MACHINE OPERATOR HELPER PCP - General Nurse Practitioner 04/30/20 04/14/23 Esha Grimm PA-C [address] [place] [address] PCP - General Family Medicine 05/04/23 Lita Oesguera Personal Advocate & Liaison (PAL) 02/28/20 03/27/23 Chanelle Mccann APRN CNM [address] [place] [address] Assigned OBGYN Provider 05/02/2005/09 Kyara De La Fuente, VJ Specialty Unix Administrator Neurology 06/04/20 03/05/21 Marija Edgar APRN HARDENING MACHINE OPERATOR HELPER Assigned PCP 06/08/20 04/29/23 Mynor Broussard MD [address] [place] [address] 977385 Assigned Surgical Provider 06/01/20 11/28/21 Keisha Dotson MD 909 [place] [address] Assigned Neuroscience Provider 06/04/20 04/01/23 Stacey Briones, [facility] Lead Unix Administrator Primary Care - CC 08/11/2012/30 Lesley Moody, [facility] Community Health Worker 08/11/2010/01 Mary Mejia Financial Resource Worker 09/02/20 10/06/20 Lita Oseguera Personal Advocate & Liaison (PAL) Family Medicine 09/10/20 09/21/20 Galo Burrell MD Assigned Heart and Vascular Provider 10/05/20 04/02/22 Cristina Wood Financial Resource Worker 10/07/20 10/14/20 Lesley Moody, [facility] Community Health Worker 10/23/2012/30 Meredith Bedoya Financial Resource Worker 10/23/20 11/23/20 Cristina Wodo Financial Resource Worker 02/09/21 02/09/21 Diana Desir, [facility] [address] [place] [address] Pharmacist Pharmacist 04/17/21 Rain Galaviz PA-C [address] [place] [address] DR [facility] [place] [address] Physician Loan Clerk Dermatology 04/28/21 Summer Lara MD [address] [facility] [place] [address] Assigned OBGYN Provider 05/10/2105/23 Summer Lara MD [address] [facility] [place] [address] Assigned OBGYN Provider 05/31/21 Summer Lara MD [address] [place] [address] [place] [address] Assigned OBGYN Provider 05/24/2105/30 Tavia Wyatt MD [address] [place] [address] Dermatology 07/14/21 Johnny Murillo MD [facility] [address] [place] [address] Assigned Musculoskeletal Provider 08/30/21 03/17/22 Erica Farrell APRN [facility] 6[address] [facility] [address] [place] [address] Nurse Practitioner Cardiovascular Disease 09/09/21 Teresita Bean [facility] [address] [place] [phone] Pharmacist Pharmacist 09/24/21 09/29/21 Tavia Wyatt MD Assigned Surgical Provider 11/29/21 05/07/22 [facility] 3033 [place] [address] Assigned MTM Pharmacist 01/02/22 Rich Barrett MD 516 [facility] 9A [place], [place] 436425 Physician Ophthalmology 01/21/22 Neil Kent MD 500 [place], [place] 457785 Dermatology 02/24/22 Roney Story DPM [address] [facility] [address] [place] [address] Assigned Musculoskeletal Provider 03/20/22 08/13/22 Erica Farrell APRN HARDENING MACHINE OPERATOR HELPER 1700 [place] [address] Assigned Heart and Vascular Provider 04/03/22 04/16/22 [facility] 3033 [place] [address] Assigned MTM Pharmacist 04/07/22 Jelena David OD [address] [facility] [place] [address] Assigned Surgical Provider 05/08/22 10/08/22 Galo Burrell MD Assigned Heart and Vascular Provider 04/17/22 06/11/22 Livan Sharif MD 6405 [facility] [address] [place] 485[address] Cardiovascular Disease 05/14/22 Livan Sharif MD [address] [place] 0845900 [place] 215525 Assigned Heart and Vascular Provider 06/12/22 07/23/22 Catherine Cm MD [address] [place] [phone] [place] [address] Cardiovascular Disease 07/21/22 Valery Veronica, PA-C [address] [place] [address] 772655 Physician Loan Clerk Dermatology 07/21/22 Catherine Cm MD [address] [address] Assigned Heart and Vascular Provider 07/24/22 11/05/22 Jhonny Murillo MD [address] [place] [address] 043864 Assigned Musculoskeletal Provider 08/14/22 10/08/22 Brea Quinn APRN HARDENING MACHINE OPERATOR HELPER [address] [place] [address] Nurse Practitioner Dermatology 09/21/22 Brea Quinn APRN HARDENING MACHINE OPERATOR HELPER [address] [place] [address] Assigned Surgical Provider 10/09/22 Jose Francisco [place] [id number] [place] [address] [address] [place] [address] Assigned Musculoskeletal Provider 10/09/22 Livan Sharif MD [address] [place], [facility] [address] [place] [address] Assigned Heart and Vascular Provider 11/06/22 11/12/22 Catherine Cm MD [address] [facility] [address] [place] [address] Assigned Heart and Vascular Provider 11/13/22 05/27/23 Sydnie Martinez RN Personal Advocate & Liaison (PAL) Family Medicine 03/28/23 07/31/23 Alfonso Renteria MD 5775 [facility] 200 [place] [address] Assigned Neuroscience Provider 04/02/23 Cheng Todd PA-C [address] [place], [place] [phone] Assigned PCP 04/30/23 07/15/23 Radha Lomeli, ARLENE HARDENING MACHINE OPERATOR HELPER [address] [place] [address] Assigned Heart and Vascular Provider 05/28/23 Jelena David OD 3[address] [facility] [place] [address] Ophthalmology 06/15/23 Pao Joseph RN Personal Advocate & Liaison (PAL) Nurse 08/01/23 Esha Grimm PAUcheC [address] [place] [address] Assigned PCP 07/16/23 Valery Veronica PA-C 9 [place], [place] 486965 Physician Loan Clerk Dermatology 09/19/23 Rey Tay MD [address] [place] [address] 429815 Gastroenterology 09/20/23 Rocky Zepeda DO [address] [place] [address] 415525 Physician Gastroenterology 09/20/23 Philip Dumont MD [address] [place] [address] 756105 Physician Ophthalmology 09/22/23 documented as of this encounter
--- OUTSIDE RECORDS SUMMARY | 2023-10-28 16:47 | XMS_ITS | Encounter Summary ---
Author Name Unknown Organization [facility] Address [address] [place] [address] Care Team Providers Care Maintenance Shop Welder Name Role Phone Lita Oseguera Unavailable Unavailable Marija Edgar APRN GAS WORKER Primary Care Provider Chanelle Gutierrez MOBILE LOUNGE DRIVER CNM Unavailab le Kyara De La Fuente RN Unavailable [phone] Marija Edgar APRN GAS WORKER Unavailable Unavail able Mynor Broussard MD Unavailable [phone] Keisha Dotson MD Unavailable Stacey Briones PROSTHETICS LAB TECHNICIAN Unavailable Mary Mejia Unavailable Unavailable Galo Burrell MD Unavailable Unavailable Cristina Wood Unavailable Lesley Moody CHW Unavailable [phone] Meredith Bedoya Unavailable Unavailable Cristina Wood Unavailable Diana Desir [facility] Unavailable Rain Galaviz PA-C Unavailable [phone] Summer Lara MD Unavailable [phone] Summer Lara MD Unavailable [phone] Summer Lara MD Unavailable [phone] Tavia Wyatt MD Unavailable Unavailable SembraJohnny ortiz MD Unavailable +1- Erica Farrell MOBILE LOUNGE DRIVER GAS WORKER Unavailable + Vikas Teresita Watson [facility] Unavailable Tavia Wyatt MD Unavailable Unavailable Diana Desir [facility] Unavailable [phone] Rich Barrett MD Unavailable Neil Kent MD Unavailable Roney Story DPM Unavailable [phone] Erica Farrell MOBILE LOUNGE DRIVER GAS WORKER Unavailable + Diana Desir [facility] Unavailable [phone] Jelena David Unavailable Galo Burrell MD Unavailable Unavailable Livan Sharif MD Unavailable + Livan Sharif MD Unavailable + Catherine Cm MD Unavailable + Valery Veronica PA-C Unavailable [phone] Catherine Cm MD Unavailable + Johnny Murillo MD Unavailable +1- Brea Quinn MOBILE LOUNGE DRIVER GAS WORKER Unavailable +[phone] Brea Quinn MOBILE LOUNGE DRIVER GAS WORKER Unavailable [phone] Jose Francisco Johnson MD Unavailable Livan Sharif MD Unavailable + Catherine Cm MD Unavailable + Sydnie Martinez RN Unavailable Unavailable Alfonso Renteria MD Unavailable [phone] Esha GrimmC Primary Care Provider [phone] Cheng Todd PA-C Unavailable Radha Lomeli APRN GAS WORKER Unavailable [phone] Jelena David OD Unavailable Pao Joseph RN Unavailable Unavailable Esha Grimm PA-C Unavailable [phone] Valery Veronica PA-C Unavailable [phone] Rey Tay MD Unavailable Rocky Zepeda DO Unavailable Philip Dumont MD Unavailable [phone] Encounter Details Date Type Department Care Team (Late st Contact Info) Description 10/02/2020 MyC Medical Advice [facility] Care Coordination [address] [place] [phone] Stacey Briones, [facility] Social History Tobacco Use Types Packs/Day [...] How often do you attend chur or mandaen services? More than 4 times per year [...] Score 3 09/29/2020 [facility] Health - Occupational [...] Info) Description 11/01/2023 8:00 AM CDT Appointment [facility] Imaging [address] [place] [phone] Lauren Claudio PA-C [address] [place] [address] 11/03/2023 8:00 AM CDT Office Visit [address] [address] Valery Veronica PA-C 909 [place] [address] 11/29/2023 8:00 AM CDT Office Visit [facility] [address] [place] [address] Esha Grimm PA-C [address] [place] [phone] 12/19/2023 11:30 AM CDT Hospital Encounter [address] 5th [place] [phone] Rocky Zepeda DO 500 [place], [place] 337165 12/19/2023 11:30 AM CDT - 12/19/2023 12:00 PM CDT Surgery [address] [phone] Rocky Zepeda DO 500 [place], [place] 893175 Esophagoscopy, gastroscopy, duodenoscopy (EGD), combined 01/02/2024 8:00 AM CDT Office Visit [facility] [address] [phone] Lauren Claudio PA-C [address] [place], [place] [phone] Kelli Perez MD [address] [address] Scheduled Procedures Name Priority Associated [...] Out COVID-19 07/13/2021 07/13/2021 07/14/2021 3:04 PM STORAGE SOLUTIONS ARCHITECT Rule Out COVID-19 07/18/2021 07/18/2021 07/20/2021 1:56 PM STORAGE SOLUTIONS ARCHITECT COVID-19 07/18/2021 07/18/2021 08/08/2021 11:3 9 PM STORAGE SOLUTIONS ARCHITECT Rule Out COVID-19 12/18/2021 12/18/2021 12/19/2021 11:34 AM CDT Rule Out COVID-19 02/24/2022 02/24/2022 02/25/2022 1:08 PM CDT Rule Out COVID-19 04/26/2022 04/26/2022 04/26/2022 6:47 AM CDT Rule Out COVID-19 05/17/2022 05/17/2022 05/17/2022 10:20 PM STORAGE SOLUTIONS ARCHITECT Rule Out COVID-19 06/09/2022 06/09/2022 06/09/2022 9:35 AM STORAGE SOLUTIONS ARCHITECT COVID-19 06/09/2022 06/09/2022 06/30/2022 11:4 1 PM STORAGE SOLUTIONS ARCHITECT Rule Out COVID-19 11/10/2022 11/10/2022 11/11/2022 12:17 PM CDT Rule Out COVID-19 03/07/2023 03/07/2023 03/07/2023 1:20 PM CDT Assessment Noted Time PHQ-9 Depression Total Score: 6 09/30/19 21 3:25 PM CDT documented as of this encounter Care Teams Maintenance Shop Welder Relationship Specialty Start Date End Date Marija Edgar APRN GAS WORKER PCP - General Nurse Practitioner 04/30/20 04/14/23 Esha Grimm PA-C [address] [place] [phone] PCP - General Family Medicine 05/04/23 Lita Oseguera Personal Advocate & Liaison (PAL) 02/28/20 03/27/23 Chanelle Mccann APRN CNM [address] [place] 200 [place] [address] Assigned OBGYN Provider 05/02/2005/09 Kyara De La Fuente, RN Specialty Test Baker Neurology 06/04/20 03/05/21 Marija Edgar APRN GAS WORKER Assigned PCP 06/08/20 04/29/23 Mynro Broussard MD 6[address] [facility] [place] 500 [place], [place] 686765 Assigned Surgical Provider 06/01/20 11/28/21 Keisha Dotson MD 909 [place] [address] Assigned Neuroscience Provider 06/04/20 04/01/23 Stacey Briones, [facility] Lead Test Baker Primary Care - CC 08/11/2012/30 Mary Mejia Financial Resource Worker 09/02/20 10/06/20 Galo Burrell MD Assigned Heart and Vascular Provider 10/05/20 04/02/22 Cristina Wood Financial Resource Worker 10/07/20 10/14/20 Lesley Moody, [facility] Community Health Worker 10/23/2012/30 Meredith Bedoya Financial Resource Worker 10/23/20 11/23/20 Cristina Wood Financial Resource Worker 02/09/21 02/09/21 Thang Diana Stanislav, [facility] [address] [place] [address] Pharmacist Pharmacist 04/17/21 Rain Galaviz PA-C [address] [place] [address] [place] [address] Physician Floral Clerk Dermatology 04/28/21 Summer Lara MD [address] [place] [address] Assigned OBGYN Provider 05/10/2105/23 Summer Lara MD [address] [place] [address] Assigned OBGYN Provider 05/31/21 Summer Lara MD [address] [place] [address] Assigned OBGYN Provider 05/24/2105/30 Tavia Wyatt MD [address] [place] [address] Dermatology 07/14/21 Johnny Murillo MD [address] [place] [address] Assigned Musculoskeletal Provider 08/30/21 03/17/22 Erica Farrell APRN GAS WORKER 6405 [facility] [address] [place] [address] Nurse Practitioner Cardiovascular Disease 09/09/21 Teresita Bean, [facility] [address] [facility] [address] [place] [phone] Pharmacist Pharmacist 09/24/21 09/29/21 Tavia Wyatt MD Assigned Surgical Provider 11/29/21 05/07/22 Diana Desir, [facility] [address] [place] [address] Assigned MTM Pharmacist 01/02/22 Rich Barrett MD [address] [place] [address] Physician Ophthalmology 01/21/22 Neil Kent MD 500 [place] [address] Dermatology 02/24/22 Roney Story DPM [address] [facility] 300 [place] [address] Assigned Musculoskeletal Provider 03/20/22 08/13/22 Erica Farrell APRN GAS WORKER 1700 [place] [address] Assigned Heart and Vascular Provider 04/03/22 04/16/22 Diana Desir, [facility] [address] [place] [address] Assigned MTM Pharmacist 04/07/22 Jelena David OD [address] [facility] [place] [place] [address] Assigned Surgical Provider 05/08/22 10/08/22 Galo Burrell MD Assigned Heart and Vascular Provider 04/17/22 06/11/22 Livan Sharif MD [address], [facility] [address] [place] 042325 Cardiovascular Disease 05/14/22 Livan Sharif MD [address], [facility] [address] [place] 234375 Assigned Heart and Vascular Provider 06/12/22 07/23/22 Catherine Cm MD [address] [facility]00 [place] 096575 Cardiovascular Disease 07/21/22 Valery Veronica, PA-C [address] [place] [address] 615325 Physician Floral Clerk Dermatology 07/21/22 Catherine Cm MD [address] [facility]00 [place] 188805 Assigned Heart and Vascular Provider 07/24/22 11/05/22 Johnny Murillo MD [address] [phone] Assigned Musculoskeletal Provider 08/14/22 10/08/22 Brea Quinn APRN GAS WORKER [address] [place] [address] 872995 Nurse Practitioner Dermatology 09/21/22 Brea Quinn, ARLENE GAS WORKER 6401 [facility] [place] 633062 Assigned Surgical Provider 10/09/22 [place] [address] [facility] 300 [place], [place] 220617 Assigned Musculoskeletal Provider 10/09/22 Livan Sharif MD [address], [facility] [address] [place] [address] Assigned Heart and Vascular Provider 11/06/22 11/12/22 Catherine Cm MD [address] [place] [address] [place] [address] Assigned Heart and Vascular Provider 11/13/22 05/27/23 JuanSydnie malik, RN Personal Advocate & Liaison (PAL) Family Medicine 03/28/23 07/31/23 Alfonso Renteria MD 5775 [facility] 200 [place], [place] 986336 Assigned Neuroscience Provider 04/02/23 Cheng Todd PA-C [address] [place] [address] Assigned PCP 04/30/23 07/15/23 Radha Lomeli APRN GAS WORKER [address] [place] 652355 Assigned Heart and Vascular Provider 05/28/23 Jelena David OD [address] [facility] [place] [address] Ophthalmology 06/15/23 Pao Joseph, RN Personal Advocate & Liaison (PAL) Nurse 08/01/23 Esha Grimm PA-C [address] [place] [phone] Assigned PCP 07/16/23 Valery Veronica PA-C 909 [place] [address] Physician Floral Clerk Dermatology 09/19/23 Rey Tay MD [address] [place] [address] 296105 Gastroenterology 09/20/23 Rocky Zepeda DO [address] [place] [address] 661515 Physician Gastroenterology 09/20/23 Philip Dumont MD [address] [place] [address] 302535 Physician Ophthalmology 09/22/23 documented as of this encounter
--- OUTSIDE RECORDS SUMMARY | 2023-10-28 16:47 | XMS_ITS | Encounter Summary ---
Author Name Unknown Organization [place] Address [address] [place] [address] Care Team Providers Care Hand Sprayer Name Role Phone Lita Oseguera Unavailable Unavailable Marija Edgar APRN MANAGER COMMERCIAL Primary Care Provider Chanelle Gutierrez PERSONNEL MANAGER CNM Unavailab le Kyara De La Fuente RN Unavailable Marija Edgar APRN MANAGER COMMERCIAL Unavailable Unavail able Mynor Broussard MD Unavailable [phone] Keisha Dotson MD Unavailable [phone] Stacey Briones INFORMATION TECHNOLOGY TEACHER Unavailable Lesley Moody CHW Unavailable [phone] Mary Mejia Unavailable Unavailable Lita Oseguera Unavailable Unavailable Galo Burrell MD Unavailable Unavailable Cristina Wood Unavailable Lesley Moody CHW Unavailable Meredith Bedoya Unavailable Unavailable Cristina Wood Unavailable Diana Desir [facility] Unavailable [phone] Rani Galaviz PA-C Unavailable Summer Lara MD Unavailable [phone] Summer Lara MD Unavailable [phone] Summer Lara MD Unavailable [phone] Tavia Wyatt MD Unavailable Unavailable SembraJohnny ortiz MD Unavailable [phone] Erica Farrell PERSONNEL MANAGER MANAGER COMMERCIAL Unavailable + Teresita Bean [facility] Unavailable Tavia Wyatt MD Unavailable Unavailable Diana Desir [facility] Unavailable [phone] Rich Barrett MD Unavailable +[phone] Neil Kent MD Unavailable Roney Story DPM Unavailable [phone] Erica Farrell PERSONNEL MANAGER MANAGER COMMERCIAL Unavailable + Diana Desir [facility] Unavailable [phone] Jelena David Radha Unavailable Galo Burrell MD Unavailable Unavailable Livan Sharif MD Unavailable + Livan Sharif MD Unavailable + Catherine Cm MD Unavailable + Valery Veronica PA-C Unavailable [phone] Catherine Cm MD Unavailable + Johnny Murillo MD Unavailable +1- Brea Quinn PERSONNEL MANAGER MANAGER COMMERCIAL Unavailable +1- Brea Quinn PERSONNEL MANAGER MANAGER COMMERCIAL Unavailable [phone] Jose Francisco Johnson MD Unavailable Livan Sharif MD Unavailable + Catherine Cm MD Unavailable + Sydnie Martinez RN Unavailable Unavailable Alfonso Renteria MD Unavailable [phone] Esha GrimmC Primary Care Provider Cheng ToddC Unavailable Radha Lomeli APRN MANAGER COMMERCIAL Unavailable [phone] Jelena David OD Unavailable Pao Joseph RN Unavailable Unavailable Esha Grimm PA-C Unavailable [phone] Valery VeronicaC Unavailable [phone] Rey Tay MD Unavailable Rocky Zepeda DO Unavailable Philip Dumont MD Unavailable [phone] Reason for Visit * Reason Onset Date Comments Patient/info Update 08/31/2020 appointment request Encounter Details Date Type Department Care Team (Late st Contact Info) Description 08/31/2020 MyC Medical Advice [address] [address] Marija Edgar APRN CNP Patient/info [...] you attend chur ch or mormon services? More than 4 times [...] Date Recorded PHQ-2 Score 0 08/12/2020 [facility]at ional [facility] - Occupational Stress Questionnaire Answer [...] COVID-19? No / Unsure 09/03/2020 12:11 PM CARTOGRAPHY PROFESSOR documented as of this encounter Miscellaneous Notes * Telephone Encounter - Maryjane Mccallum RN - 09/01/2020 7:21 AM CARTOGRAPHY PROFESSOR Patient sent message requesting office visit with [...] by 1:10 PM) Office Visit with Marija Edgar APRN CNP [facility] ([facility] ) [address] [facility] [phone] Maryjane Mccallum, Registered Nurse [facility] OGRAPHY PROFESSOR documented in this encounter Plan of Treatment Upcoming Encounters Date Type Department Care Team (Late st Contact Info) Description 11/01/2023 8:00 AM CDT Appointment [facility] [address] [place] [address] Lauren Claudio PA-C [address] [place], [place] [phone] 11/03/2023 8:00 AM CDT Office Visit [address] [phone] Valery Veronica PA-C [address] [place] [address] 11/29/2023 8:00 AM CDT Office Visit [facility] [address] [place] [phone] Esha Grimm PA-C [address] [place] [phone] 12/19/2023 11:30 AM CDT Hospital Encounter [address] 5th [place] [phone] Rocky Zepeda, [address] [place] [address] 12/19/2023 11:30 AM CDT - 12/19/2023 12:00 PM CDT Surgery [address] 5th [place] [phone] Rocky Zepeda, DO 500 [facility] [place], [place] 65[address] Esophagoscopy, gastroscopy, duodenoscopy (EGD), combined 01/02/2024 8:00 AM CDT Office Visit [address] [address] Lauren Claudio PA-C [phone] [place] [address] Kelli Perez MD [address] [place] [address] 713754 Scheduled Procedures Name Priority Associated Diagnoses Date/Ti [...] Out COVID-19 07/13/2021 07/13/2021 07/14/2021 3:04 PM CARTOGRAPHY PROFESSOR Rule Out COVID-19 07/18/2021 07/18/2021 07/20/2021 1:56 PM CARTOGRAPHY PROFESSOR COVID-19 07/18/2021 07/18/2021 08/08/2021 11:3 9 PM CARTOGRAPHY PROFESSOR Rule Out COVID-19 12/18/2021 12/18/2021 12/19/2021 11:34 AM CDT Rule Out COVID-19 02/24/2022 02/24/2022 02/25/2022 1:08 PM CDT Rule Out COVID-19 04/26/2022 04/26/2022 04/26/2022 6:47 AM CDT Rule Out COVID-19 05/17/2022 05/17/2022 05/17/2022 10:20 PM CARTOGRAPHY PROFESSOR Rule Out COVID-19 06/09/2022 06/09/2022 06/09/2022 9:35 AM CARTOGRAPHY PROFESSOR COVID-19 06/09/2022 06/09/2022 06/30/2022 11:4 1 PM CARTOGRAPHY PROFESSOR Rule Out COVID-19 11/10/2022 11/10/2022 11/11/2022 12:17 PM CDT Rule Out COVID-19 03/07/2023 03/07/2023 03/07/2023 1:20 PM CDT Assessment Noted Time PHQ-9 Depression Total Score: 9 06/25/20 7:04 AM CARTOGRAPHY PROFESSOR documented as of this encounter Care Teams Hand Sprayer Relationship Specialty Start Date End Date Marija Edgar APRN MANAGER COMMERCIAL PCP - General Nurse Practitioner 04/30/20 04/14/23 Esha Grimm PA-C [address] [place] [phone] PCP - General Family Medicine 05/04/23 Lita Oseguera Personal Advocate & Liaison (PAL) 02/28/20 03/27/23 Chanelle Mccann APRN CNM [address] [place] [address] Assigned OBGYN Provider 05/02/2005/09 Kyara De La Fuente, RN Specialty Coding Compliance Specialist Neurology 06/04/20 03/05/21 Marija Edgar APRN MANAGER COMMERCIAL Assigned PCP 06/08/20 04/29/23 Mynor Broussard MD [address] [place] [address] Assigned Surgical Provider 06/01/20 11/28/21 Keisha Dotson MD 909 [place] [address] Assigned Neuroscience Provider 06/04/20 04/01/23 Stacey Briones, [facility] Lead Coding Compliance Specialist Primary Care - CC 08/11/2012/30 Lesley Moody, [facility] Community Health Worker 08/11/2010/01 Mary Mejia Financial Resource Worker 09/02/20 10/06/20 Lita Oseguera Personal Advocate & Liaison (PAL) Family Medicine 09/10/20 09/21/20 Galo Burrell MD Assigned Heart and Vascular Provider 10/05/20 04/02/22 Cristina Wood Financial Resource Worker 10/07/20 10/14/20 Lesley Moody, [facility] Community Health Worker 10/23/2012/30 Meredith Bedoya Financial Resource Worker 10/23/20 11/23/20 Cristina Wood Financial Resource Worker 02/09/21 02/09/21 Diana Desir, [facility] [address] [place] [address] Pharmacist Pharmacist 04/17/21 Rain Galaviz PA-C [address] [place] [address] [address] [place] [address] Physician Chief Telephone Operator Dermatology 04/28/21 Summer Lara MD [address] [place], [place] 947194 Assigned OBGYN Provider 05/10/2105/23 Summer Lara MD [address] [place], [place] 570774 Assigned OBGYN Provider 05/31/21 Summer Lara MD [address] [place], [place] 96[address] Assigned OBGYN Provider 05/24/2105/30 Tavia Wyatt MD [address] [place] [address] Dermatology 07/14/21 Johnny Murillo MD [address] [place], [place] 532494 Assigned Musculoskeletal Provider 08/30/21 03/17/22 Erica Farrell APRN MANAGER COMMERCIAL [address] [facility] [address] [place] [address] Nurse Practitioner Cardiovascular Disease 09/09/21 Teresita Bean [facility] [address] [place] [phone] Pharmacist Pharmacist 09/24/21 09/29/21 Tavia Wyatt MD Assigned Surgical Provider 11/29/21 05/07/22 Diana Desir, [facility] [address] [place] [address] Assigned MTM Pharmacist 01/02/22 Rich Barrett MD [address] 517[address] Physician Ophthalmology 01/21/22 Neil Kent MD 500 [place], [place] 609165 Dermatology 02/24/[address] [facility] 300 [place] [address] Assigned Musculoskeletal Provider 03/20/22 08/13/22 Erica Farrell APRN MANAGER COMMERCIAL 1700 [place] [address] Assigned Heart and Vascular Provider 04/03/22 04/16/22 Diana Desir, [facility] 3033 [place] [address] Assigned MTM Pharmacist 04/07/22 Jelena David OD [address] [place] [address] Assigned Surgical Provider 05/08/22 10/08/22 Galo Burrell MD Assigned Heart and Vascular Provider 04/17/22 06/11/22 Livan Sharif MD [address] [facility] [address] [place] [address] Cardiovascular Disease 05/14/22 Livan Sharif MD [address], [facility] [address] [place] [address] Assigned Heart and Vascular Provider 06/12/22 07/23/22 Catherine Cm MD [address] [facility]00 [place] [address] Cardiovascular Disease 07/21/22 Valery Veronica, PAUche[facility] 9 [place], [place] 232655 Physician Chief Telephone Operator Dermatology 07/21/22 Catherine Cm MD [address] [facility]00 [place] [address] Assigned Heart and Vascular Provider 07/24/22 11/05/22 Johnny Murillo MD [facility] 266664 Assigned Musculoskeletal Provider 08/14/22 10/08/22 Brea Quinn APRN MANAGER COMMERCIAL [address] [place] [address] 662035 Nurse Practitioner Dermatology 09/21/22 Brea Quinn APRN MANAGER COMMERCIAL [address] [place] [address] [place] 850082 Assigned Surgical Provider 10/09/22 [place] [address] [place] [address] 042277 Assigned Musculoskeletal Provider 10/09/22 Livan Sharif MD [address], [facility] [address] [place] 603395 Assigned Heart and Vascular Provider 11/06/22 11/12/22 Catherine Cm MD [address] [place], [place] 477525 Assigned Heart and Vascular Provider 11/13/22 05/27/23 Sydnie Martinez, RN Personal Advocate & Liaison (PAL) Family Medicine 03/28/23 07/31/23 Alfonso Renteria MD [facility] [facility] 200 [place], [place] 134046 Assigned Neuroscience Provider 04/02/23 Cheng Todd PA-C [address] [place], [place] 55847124 Assigned PCP 04/30/23 07/15/23 Radha Lomeli APRN MANAGER COMMERCIAL [address] [place] 504025 Assigned Heart and Vascular Provider 05/28/23 Jelena David OD [address] [place] [address] Ophthalmology 06/15/23 Pao Joseph, VJ Personal Advocate & Liaison (PAL) Nurse 08/01/23 Esha Grimm PA-C [address] [place] [address] Assigned PCP 07/16/23 Valery Veronica, [place] 9 [place], [place] 73[address]95 Physician Chief Telephone Operator Dermatology 09/19/23 Rey Tay MD [address] [place] [address] 804615 MD Gastroenterology 09/20/23 Rocky Zepeda DO [address] [place] [address] Physician Gastroenterology 09/20/23 Philip Dumont MD [address] [place] [address] 341805 Physician Ophthalmology 09/22/23 documented as of this encounter
--- OUTSIDE RECORDS SUMMARY | 2023-10-28 16:47 | XMS_ITS | Encounter Summary ---
Author Name Unknown Organization [place] Address [address] [place] [address] Care Team Providers Care Upholstery Parts Sorter Name Role Phone Lita Oseguera Unavailable Unavailable Marija Edgar APRN FOREMAN SHIPPING DEPARTMENT Primary Care Provider Chanelle Gutierrez DIVISION ROAD SUPERVISOR CNM Unavailab le Kyara De La Fuente RN Unavailable [phone] Marija Edgar APRN FOREMAN SHIPPING DEPARTMENT Unavailable Unavail able Mynor Broussard MD Unavailable [phone] Keisha Dotson MD Unavailable [phone] Stacey Briones CHAINER Unavailable [phone] Galo Burrell MD Unavailable Unavailable Lesley Moody CHW Unavailable Meredith Bedoya Unavailable Unavailable Cristina Wood Unavailable Diana Desir [facility] Unavailable Rain Galaviz PA-C Unavailable Summer Lara MD Unavailable [phone] Summer Lara MD Unavailable Summer Lara MD Unavailable [phone] Tavia Wyatt MD Unavailable Unavailable Johnny Murillo MD Unavailable Erica Farrell [address] SUPERVISOR FOREMAN SHIPPING DEPARTMENT Unavailable Vikas Teresita Jesus Watson [facility] Unavailable Tavia Wyatt MD Unavailable Unavailable Kendrick Desirelle Stanislav [facility] Unavailable [phone] Rich Barrett MD Unavailable Neil Kent MD Unavailable Roney Story DPM Unavailable [phone] Bud, Erica Guidry [address] SUPERVISOR FOREMAN SHIPPING DEPARTMENT Unavailable + Thang Diana Stanislav [facility] Unavailable [phone] Tommy Davidmao Garcia OD Unavailable Galo Burrell MD Unavailable Unavailable Livan Sharif MD Unavailable + Livan Sharif MD Unavailable + Catherine Cm MD Unavailable + Valery Veronica-C Unavailable [phone] Catherine Cm MD Unavailable + Johnny Murillo MD Unavailable +[phone]- Brea Quinn [address] SUPERVISOR FOREMAN SHIPPING DEPARTMENT Unavailable [phone] SUPERVISOR FOREMAN SHIPPING DEPARTMENT Unavailable [phone] Jose Francisco Johnson MD Unavailable Livan Sharif MD Unavailable + Catherine Cm MD Unavailable + Sydnie Martinez RN Unavailable Unavailable Alfonso Renteria MD Unavailable [phone] Esha Grimm PA-C Primary Care Provider Cheng Todd PA-C Unavailable Radha Lomeli APRN FOREMAN SHIPPING DEPARTMENT Unavailable [phone] Jelena David OD Unavailable Pao Joseph RN Unavailable Unavailable Esha Grimm Adam LAYNE Unavailable [phone] Jeremías, Valery Begum PA-C Unavailable [phone] Rey Tay MD Unavailable Rocky Zepeda DO Unavailable Philip Dumont MD Unavailable [phone] Encounter Details Date Type Department Care Team (Late st Contact Info) Description 10/24/2020 MyC Medical Advice [address] [address] Marija Edgar APRN FOREMAN SHIPPING DEPARTMENT Social History Tobacco Use Types Packs/Day Years [...] you attend chur ch or synagogue services? More than 4 times per year [...] Answer Date Recorded PHQ-2 Score 3 09/29/2020 [facility] Occupat ional Health - [...] 11:44 AM CDT Replied to patient via [employer]. Anthony Doe PA-C on 10/27/2020 at 11:54 AM documented in this encounter Plan of Treatment Upcoming Encounters Date Type Department Care Team (Late st Contact Info) Description 11/01/2023 8:00 AM CDT Appointment [facility] [address] [place] [address] Lauren Claudio PA-C [address] [place], [place] [phone] 11/03/2023 8:00 AM CDT Office Visit [facility] 830 [place] [phone] Valery Veronica PA-C [address] [place] [address] 11/29/2023 8:00 AM CDT Office Visit [facility] [address] [place] [phone] Esha Grimm PA-C [address] [place] [phone] 12/19/2023 11:30 AM CDT Hospital Encounter [address] [phone] Rocky Zepeda DO 500 [place] [address] 12/19/2023 11:30 AM CDT - 12/19/2023 12:00 PM CDT Surgery [address] [phone] Rocky Zepeda DO 500 [place] [address] Esophagoscopy, gastroscopy, duodenoscopy (EGD), combined 01/02/2024 8:00 AM CDT Office Visit [facility] [place] [address] [place] [phone] Lauren Claudio PA-C [address] [place], [place] [phone] Kelli Perez MD [address] [facility] [address] [address] [phone] (work) Scheduled Procedures Name Priority Associated Diagnoses Date/Ti [...] Out COVID-19 07/13/2021 07/13/2021 07/14/2021 3:04 PM PARTS MANAGER Rule Out COVID-19 07/18/2021 07/18/2021 07/20/2021 1:56 PM PARTS MANAGER COVID-19 07/18/2021 07/18/2021 08/08/2021 11:3 9 PM PARTS MANAGER Rule Out COVID-19 12/18/2021 12/18/2021 12/19/2021 11:34 AM CDT Rule Out COVID-19 02/24/2022 02/24/2022 02/25/2022 1:08 PM CDT Rule Out COVID-19 04/26/2022 04/26/2022 04/26/2022 6:47 AM CDT Rule Out COVID-19 05/17/2022 05/17/2022 05/17/2022 10:20 PM PARTS MANAGER Rule Out COVID-19 06/09/2022 06/09/2022 06/09/2022 9:35 AM PARTS MANAGER COVID-19 06/09/2022 06/09/2022 06/30/2022 11:4 1 PM PARTS MANAGER Rule Out COVID-19 11/10/2022 11/10/2022 11/11/2022 12:17 PM CDT Rule Out COVID-19 03/07/2023 03/07/2023 03/07/2023 1:20 PM CDT Assessment Noted Time PHQ-9 Depression Total Score: 6 09/30/19 21 3:25 PM CDT documented as of this encounter Care Teams Upholstery Parts Sorter Relationship Specialty Start Date End Date Marija Edgar APRN FOREMAN SHIPPING DEPARTMENT PCP - General Nurse Practitioner 04/30/20 04/14/23 Esha Grimm PA-C [address] [place] [phone] PCP - General Family Medicine 05/04/23 Lita Oseguera Personal Advocate & Liaison (PAL) 02/28/20 03/27/23 Chanelle Mccann APRN CNM [address] [facility] [facility], [facility] 200 [place], [place] 537347 Assigned OBGYN Provider 05/02/2005/09 Kyara De La Fuente, RN Specialty Varnishing Unit Tool Setter Neurology 06/04/20 03/05/21 Marija Edgar APRN FOREMAN SHIPPING DEPARTMENT Assigned PCP 06/08/20 04/29/23 Mynor Broussard MD 6363 [facility] 500 [place], [place] 258495 Assigned Surgical Provider 06/01/20 11/28/21 Keisha Dotson MD 909 [place], [place] 857045 Assigned Neuroscience Provider 06/04/20 04/01/23 Stacey Briones, CHAINER Lead Varnishing Unit Tool Setter Primary Care - CC 08/11/2012/30 Galo Burrell MD Assigned Heart and Vascular Provider 10/05/20 04/02/22 Lesley Moody, W Community Health Worker 10/23/2012/30 Meredith Bedoya Financial Resource Worker 10/23/20 11/23/20 Cristina Wood Financial Resource Worker 02/09/21 02/09/21 Diana Desir, [facility] [address] [place] [address] Pharmacist Pharmacist 04/17/21 Rain Galaviz PA-C [address] [place] [address] [place] [address] Physician Registered Midwife Dermatology 04/28/21 Summer Lara MD [address] [place] [address] Assigned OBGYN Provider 05/10/2105/23 Summer Lara MD [address] [place] [address] Assigned OBGYN Provider 05/31/21 2 Summer Lara MD [address] [place] [address] Assigned OBGYN Provider 05/24/2105/30 Tavia Wyatt MD [address] [place] [address] Dermatology 07/14/21 Johnny Murillo MD [address] [place] [address] Assigned Musculoskeletal Provider 08/30/21 03/17/22 Erica Farrell APRN FOREMAN SHIPPING DEPARTMENT 6405 [facility] [address] [place] [address] Nurse Practitioner Cardiovascular Disease 09/09/21 Teresita Bean, [facility] [address] [place] [phone] Pharmacist Pharmacist 09/24/21 09/29/21 Tavia Wyatt MD Assigned Surgical Provider 11/29/21 05/07/22 Diana Desir, [facility] [address] [place] [address] Assigned MTM Pharmacist 01/02/22 Rich Barrett MD [address] 721885 Physician Ophthalmology 01/21/22 Neil Kent MD 500 [place], [place] 873925 Dermatology 02/24/22 Roney Story DPM [address] [facility] 300 [place] [address] Assigned Musculoskeletal Provider 03/20/22 08/13/22 Erica Farrell APRN FOREMAN SHIPPING DEPARTMENT 1700 [place] [address] Assigned Heart and Vascular Provider 04/03/22 04/16/22 Diana Desir, [facility] [address] [place] [address] Assigned MTM Pharmacist 04/07/22 Jelena David OD [address] [place] [address] Assigned Surgical Provider 05/08/22 10/08/22 Galo Burrell MD Assigned Heart and Vascular Provider 04/17/22 06/11/22 Livan Sharif MD [address], [facility]00 [place], [place] [address] Cardiovascular Disease 05/14/22 Livan Sharif MD [address], [facility]00 [place] [address]05 Assigned Heart and Vascular Provider 06/12/22 07/23/22 Catherine Cm MD [address] [facility]00 [place] [address] Cardiovascular Disease 07/21/22 Valery Veronica, PA-C [address] [place] [address] 882245 Physician Registered Midwife Dermatology 07/21/22 Catherine Cm MD [address] [facility]00 [place], [place] 85[address] Assigned Heart and Vascular Provider 07/24/22 11/05/22 Johnny Murillo MD [address] 389[address] Assigned Musculoskeletal Provider 08/14/22 10/08/22 Brea Quinn APRN FOREMAN SHIPPING DEPARTMENT [address] [place] [address] Nurse Practitioner Dermatology 09/21/22 Brea Quinn APRN FOREMAN SHIPPING DEPARTMENT 6401 [facility] [place] [address] Assigned Surgical Provider 10/09/22 [place] [address] [facility] 300 [place] [address] Assigned Musculoskeletal Provider 10/09/22 Livan Sharif MD [address] [facility] [address] [place] [address] Assigned Heart and Vascular Provider 11/06/22 11/12/22 Catherine Cm MD [address] [facility] [address] [place] [address] Assigned Heart and Vascular Provider 11/13/22 05/27/23 Sydnie Martinez RN Personal Advocate & Liaison (PAL) Family Medicine 03/28/23 07/31/23 Alfonso Renteria MD 5775 [facility] 200 [place] [address] Assigned Neuroscience Provider 04/02/23 Cheng Todd PA-C [address] [place] [address] Assigned PCP 04/30/23 07/15/23 Radha Lomeli APRN FOREMAN SHIPPING DEPARTMENT [address] [place] [address]335 Assigned Heart and Vascular Provider 05/28/23 Jelena Daivd OD [address] [facility] [place] [address] Ophthalmology 06/15/23 Pao Joseph, RN Personal Advocate & Liaison (PAL) Nurse 08/01/23 Esha Grimm PA-C [address] [place] [address] Assigned PCP 07/16/23 Valery Veronica PA-C [address] [place] [address] 353885 Physician Registered Midwife Dermatology 09/19/23 Rey Tay MD [address] [place] [address] Gastroenterology 09/20/23 Rocky Zepeda DO [address] [place] [address] 685385 Physician Gastroenterology 09/20/23 Philip Dumont MD [address] [place] [address] 901415 Physician Ophthalmology 09/22/23 documented as of this encounter
--- OUTSIDE RECORDS SUMMARY | 2023-10-28 16:47 | XMS_ITS | Encounter Summary ---
Author Name Unknown Organization [facility] Address [address] [place] [address] Care Team Providers Care Traffic Circuit Engineer Name Role Phone Lita Oseguera Unavailable Unavailable Marija Edgar APRN TRACTOR DRILL OPERATOR Primary Care Provider Chanelle Gutierrez SLOT FLOOR SUPERVISOR CNM Unavailab le Kyara De La Fuente RN Unavailable [phone] Marija Edgar APRN TRACTOR DRILL OPERATOR Unavailable Unavail able Mynor Broussard MD Unavailable [phone] Keisha Dotson MD Unavailable [phone] Stacey Briones ROADSIDE MECHANIC Unavailable Galo Burrell MD Unavailable Unavailable Lesley Moody CHW Unavailable Meredith Bedoya Unavailable Unavailable Cristina Wood Unavailable Diana Desir [facility] Unavailable Rain Galaviz PA-C Unavailable Summer Lara MD Unavailable [phone] Summer Lara MD Unavailable [phone] Summer Lara MD Unavailable [phone] Tavia Wyatt MD Unavailable Unavailable Johnny Murillo MD Unavailable Erica Farrell SLOT FLOOR SUPERVISOR TRACTOR DRILL OPERATOR Unavailable Vikas Teresita Jesus Watson [facility] Unavailable Tavia Wyatt MD Unavailable Unavailable Kendrick Desirelle Stanislav [facility] Unavailable [phone] Rich Barrett MD Unavailable Neil Kent MD Unavailable Roney Story DPM Unavailable [phone] Bud, Erica Guidry SLOT FLOOR SUPERVISOR TRACTOR DRILL OPERATOR Unavailable + Thang Diana Stanislav [facility] Unavailable [phone] Tommy Davidmao Garcia OD Unavailable Galo Burrell MD Unavailable Unavailable Livan Sharif MD Unavailable + Livan Sharif MD Unavailable + Catherine Cm MD Unavailable + Valery Veronica-C Unavailable [phone] Catherine Cm MD Unavailable + Johnny Murillo MD Unavailable +[phone] Brea Quinn SLOT FLOOR SUPERVISOR TRACTOR DRILL OPERATOR Unavailable [phone] Brea Quinn SLOT FLOOR SUPERVISOR TRACTOR DRILL OPERATOR Unavailable [phone] Jose Francisco Johnson MD Unavailable Livan Sharif MD Unavailable + Catherine Cm MD Unavailable + Sydnie Martinez RN Unavailable Unavailable Alfonso Renteria MD Unavailable [phone] Esha Grimm PA-C Primary Care Provider Cheng Todd PA-C Unavailable Armani Radha Sia JACOBS TRACTOR DRILL OPERATOR Unavailable [phone] Frankie Jelena Garcia OD Unavailable Pao Joseph RN Unavailable Unavailable Alfa Eshaann Medina PA-C Unavailable [phone] Encounter Details Date Type Department Care Team (Late st Contact Info) Description 11/21/[address] [phone] Marija Edgar APRN CNP Social History Tobacco [...] How often do you attend [facility] or scientologist services? 1 to 4 times [...] Answer Date Recorded PHQ-2 Score 0 06/20/2023 [facility] of Occupat ional Health - [...] exercise at this level? 30 min 03/10/2023 Luxor Depression Scale Answer Date Recorded Luxor Depression Score 5 01/14/2021 Last EPDS Self [...] 11/21/2020 11:38 AM CDT Prescription approved per [facility] Refill Protocol. Magdalena Malave RN on 11/21/2020 at 11:38 AM documented in this encounter Plan of Treatment Upcoming Encounters Date Type Department Care Team (Late st Contact Info) Description 11/01/2023 8:00 AM CDT Appointment [facility] [address] [facility] [place] [address] Lauren Claudio PA-C [address] [place], [place] [phone] 11/03/2023 8:00 AM CDT Office Visit [address] [phone] Valery Veronica PA-C [address] [place] [address] 11/29/2023 8:00 AM CDT Office Visit [facility] [address] [place] [phone] Esha Grimm PA-C [address] [place] [phone] 12/19/2023 11:30 AM CDT Hospital Encounter [place] [address] [facility] [address] [place] [phone] Rocky Zepeda DO 500 [place], [place] 795025 12/19/2023 11:30 AM CDT - 12/19/2023 12:00 PM CDT Surgery [facility] [address] [phone] Rocky Zepeda, DO 500 [place], [place] [address] Esophagoscopy, gastroscopy, duodenoscopy (EGD), combined 01/02/2024 8:00 AM CDT Office Visit [facility] [address] [phone] Lauren Claudio PA-C [address] [place] [address] [phone] Kelli Perez MD [address] [place] [address] [phone] Scheduled Procedures Name Priority Associated Diagnoses Date/Ti hi ESOPHAGOGASTRODUODENOSCOPY Eosinophilic esophagitis Esophageal dysphagia 12/19/2023 11:30 AM CDT documented as of this encounter Visit Diagnoses Diagnosis Anxiety Anxiety state, unspecified Palpitations Eosinophilic esophagitis Esophageal dysphagia Dysphagia, pharyngoesophageal phase documented in this encounter Additional Health Concerns Infection Onset Date Last Indicated Resolved Time Rule Out COVID-19 05/11/2021 05/11/2021 05/13/2021 10:18 AM CDT Rule Out COVID-19 07/13/2021 07/13/2021 07/14/2021 3:04 PM PLATE PUT IN WORKER Rule Out COVID-19 07/18/2021 07/18/2021 07/20/2021 1:56 PM PLATE PUT IN WORKER COVID-19 07/18/2021 07/18/2021 08/08/2021 11:3 9 PM PLATE PUT IN WORKER Rule Out COVID-19 12/18/2021 12/18/2021 12/19/2021 11:34 AM CDT Rule Out COVID-19 02/24/2022 02/24/2022 02/25/2022 1:08 PM CDT Rule Out COVID-19 04/26/2022 04/26/2022 04/26/2022 6:47 AM CDT Rule Out COVID-19 05/17/2022 05/17/2022 05/17/2022 10:20 PM PLATE PUT IN WORKER Rule Out COVID-19 06/09/2022 06/09/2022 06/09/2022 9:35 AM PLATE PUT IN WORKER COVID-19 06/09/2022 06/09/2022 06/30/2022 11:4 1 PM PLATE PUT IN WORKER Rule Out COVID-19 11/10/2022 11/10/2022 11/11/2022 12:17 PM CDT Rule Out COVID-19 03/07/2023 03/07/2023 03/07/2023 1:20 PM CDT Assessment Noted Time PHQ-9 Depression Total Score: 6 09/30/19 3:25 PM CDT documented as of this encounter Care Teams Traffic Circuit Engineer Relationship Specialty Start Date End Date Marija Edgar APRN TRACTOR DRILL OPERATOR PCP - General Nurse Practitioner 04/30/20 04/14/23 Esha Grimm PA-C [address] [place] [phone] PCP - General Family Medicine 05/04/23 Lita Oseguera Personal Advocate & Liaison (PAL) 02/28/20 03/27/23 Chanelle Mccann APRN CNM [address] [address] Assigned OBGYN Provider 05/02/2005/09 Kyara De La Fuente, RN Specialty Community Engagement Leader Neurology 06/04/20 03/05/21 Marija Edgar APRN TRACTOR DRILL OPERATOR Assigned PCP 06/08/20 04/29/23 Mynor Broussard MD [address] [place] [address] Assigned Surgical Provider 06/01/20 11/28/21 Keisha Dotson MD 909 [place] [address] Assigned Neuroscience Provider 06/04/20 04/01/23 Stacey Briones, [facility] Lead Community Engagement Leader Primary Care - CC 08/11/2012/30 Galo Burrell MD Assigned Heart and Vascular Provider 10/05/20 04/02/22 Lesley Moody, [facility] Community Health Worker 10/23/2012/30 Meredith Bedoya Financial Resource Worker 10/23/20 11/23/20 Cristina Wood Financial Resource Worker 02/09/21 02/09/21 Diana Desir, [facility] [address] [place], [place] [address] Pharmacist Pharmacist 04/17/21 Rain Galaviz PA-C [address] [facility] [facility] [address] [place] [address] Physician Medical Data Analyst Dermatology 04/28/21 Summer Lara MD [address] [place], [place] [address] Assigned OBGYN Provider 05/10/2105/23 Summer Lara MD [address] [address] Assigned OBGYN Provider 05/31/21 2 Summer Lara MD [address] [place] [address] Assigned OBGYN Provider 05/24/2105/30 Tavia Wyatt MD [address] [place] [address] [facility] 07/14/21 Johnny Murillo MD [address] [place] [address] Assigned Musculoskeletal Provider 08/30/21 03/17/22 Erica Farrell APRN TRACTOR DRILL OPERATOR [address] [facility] [address] [place] [address] Nurse Practitioner Cardiovascular Disease 09/09/21 Teresita Bean [facility] [address] [place] [phone] Pharmacist Pharmacist 09/24/21 09/29/21 Tavia Wyatt MD Assigned Surgical Provider 11/29/21 05/07/22 [facility] [address] [place] [address] Assigned MTM Pharmacist 01/02/22 Rich Barrett MD 6 [facility] [address] [place] [address] Physician Ophthalmology 01/21/22 Neil Kent MD 500 [place] [address] Dermatology 02/24/22 [place] [address] [facility] [address] [place] [address] Assigned Musculoskeletal Provider 03/20/22 08/13/22 Erica Farrell APRN TRACTOR DRILL OPERATOR 1700 [place] [address] Assigned Heart and Vascular Provider 04/03/22 04/16/22 [facility] [address] [place] [address] Assigned MTM Pharmacist 04/07/22 Jelena David OD [address] [facility] [place] [address] Assigned Surgical Provider 05/08/22 10/08/22 Galo Burrell MD Assigned Heart and Vascular Provider 04/17/22 06/11/22 Livan Sharif MD [address] [place] [address]38[address] Cardiovascular Disease 05/14/22 Livan Sharif MD [address] [place] 163675 Assigned Heart and Vascular Provider 06/12/22 07/23/22 Catherine Cm MD [address] [facility] [place] [address] Cardiovascular Disease 07/21/22 Valery Veronica PAUcheC [address] [place] [address] 021505 Physician Medical Data Analyst Dermatology 07/21/22 Catherine Cm MD [address] [facility] Sylvia [address] [place] [address] Assigned Heart and Vascular Provider 07/24/22 11/05/22 Johnny Murillo MD [address] [place] [address] Assigned Musculoskeletal Provider 08/14/22 10/08/22 Brea Quinn APRN TRACTOR DRILL OPERATOR [address] [place] [address] 006925 Nurse Practitioner Dermatology 09/21/22 Brea Quinn APRN TRACTOR DRILL OPERATOR [address] [place] [address] [place] [address] Assigned Surgical Provider 10/09/22 [place] [address] [place] [place] [address] [phone] Assigned Musculoskeletal Provider 10/09/22 Livan Sharif MD [address] [place] [address] [place] 965435 Assigned Heart and Vascular Provider 11/06/22 11/12/22 Catherine Cm MD [address] [place] [address] Assigned Heart and Vascular Provider 11/13/22 05/27/23 Sydnie Martinez RN Personal Advocate & Liaison (PAL) Family Medicine 03/28/23 07/31/23 Alfonso Renteria MD [address] [facility] [address] 200 [place] [address] Assigned Neuroscience Provider 04/02/23 Cheng Todd PA-C [address] [place], [place] [phone] Assigned PCP 04/30/23 07/15/23 Radha Lomeli APRN TRACTOR DRILL OPERATOR [address] [place] [address] Assigned Heart and Vascular Provider 05/28/23 Jelena aDvid OD [address] [facility] [place] [address] Ophthalmology 06/15/23 Pao Joseph RN Personal Advocate & Liaison (PAL) Nurse 08/01/23 Esha Grimm PA-C [address] [place] [phone] Assigned PCP 07/16/23 documented as of this encounter
--- OUTSIDE RECORDS SUMMARY | 2023-10-28 16:47 | XMS_ITS | Encounter Summary ---
Author Name Unknown Organization [facility] Address [address] [place] [address] Care Team Providers Care Paper Processing Machine Helper Name Role Phone Lita Oseguera Unavailable Unavailable Marija Edgar APRN PRICING INTERN Primary Care Provider Chanelle Gutierrez SHEET METAL DUCT INSTALLER HELPER CNM Unavailab le Kyara De La Fuente RN Unavailable [phone] Marija Edgar APRN PRICING INTERN Unavailable Unavail able Mynor Broussard MD Unavailable [phone] Keisha Dotson MD Unavailable Stacey Briones CLASSIFIED AD CLERK Unavailable [phone] Lesley Moody CHW Unavailable Mary Mejia Unavailable Unavailable Lita Oseguera Unavailable Unavailable Galo Burrell MD Unavailable Unavailable Cristina Wood Unavailable Lesley Moody CHW Unavailable Meredith Bedoya Unavailable Unavailable Cristina Wood Unavailable Diana Desir [facility] Unavailable [phone] Rain Galaviz PA-C Unavailable [phone] Summer Lara MD Unavailable [phone] Summer Lara MD Unavailable [phone] Summer Lara MD Unavailable [phone] Tavia Wyatt MD Unavailable Unavailable SembraJohnny ortiz MD Unavailable +[phone] Erica Farrell SHEET METAL DUCT INSTALLER HELPER PRICING INTERN Unavailable + Teresita Bean [facility] Unavailable Tavia Wyatt MD Unavailable Unavailable Diana Desir [facility] Unavailable [phone] Rich Barrett MD Unavailable +[phone] Neil Kent MD Unavailable Roney Story DPM Unavailable [phone] Erica Farrell SHEET METAL DUCT INSTALLER HELPER PRICING INTERN Unavailable + Diana Desir [facility] Unavailable [phone] Jelena David Radha Unavailable Galo Burrell MD Unavailable Unavailable Livan Sharif MD Unavailable + Livan Sharif MD Unavailable + Catherine Cm MD Unavailable + Valery Veronica PA-C Unavailable + [phone] Catherine Cm MD Unavailable + Johnny Murillo MD Unavailable +1- Brea Quinn SHEET METAL DUCT INSTALLER HELPER PRICING INTERN Unavailable +1- Brea Quinn SHEET METAL DUCT INSTALLER HELPER PRICING INTERN Unavailable [phone] Jose Francisco Johnson MD Unavailable Livan Sharif MD Unavailable + Catherine Cm MD Unavailable + Sydnie Martinez RN Unavailable Unavailable Alfonso Renteria MD Unavailable + [phone] Esha GrimmC Primary Care Provider Cheng Todd PA-C Unavailable [phone] Radha Lomeli APRN PRICING INTERN Unavailable [phone] Jelena David OD Unavailable Pao Joseph RN Unavailable Unavailable Esha Grimm PA-C Unavailable [phone] Valery Veronica PA-C Unavailable [phone] Rey Tay MD Unavailable Rocky Zepeda DO Unavailable Philip Dumont MD Unavailable [phone] Encounter Details Date Type Department Care Team (Late st Contact Info) Description 09/02/2020 [facility] Care Coordination [address] [place] [phone] Mary Mejia Social History Tobacco Use [...] Answer Date Recorded PHQ-2 Score 0 08/12/2020 [facility] - Occupational Stress Questionnaire Answer Date Recorded [...] COVID-19? No / Unsure 09/05/2020 2:50 PM METAL ENGRAVER documented as of this encounter Plan of Treatment Upcoming Encounters Date Type Department Care Team (Late st Contact Info) Description 11/01/2023 8:00 AM CDT Appointment [facility] [address] [place] [phone] Lauren Claudio, PA-C [address] [place] [address] 11/03/2023 8:00 AM CDT Office Visit [address] [address] Valery Veronica, PA-C 903 [place] [address] 11/29/2023 8:00 AM CDT Office Visit [address] [phone] Esha Grimm PA-C [address] [place] [address] 12/19/2023 11:30 AM CDT Hospital Encounter [address] [phone] Rocky Zepeda DO 500 [place], [place] [address] 12/19/2023 11:30 AM CDT - 12/19/2023 12:00 PM CDT Surgery [address] [phone] Rocky Zpeeda DO 500 [place], [place] 2[address]65 Esophagoscopy, gastroscopy, duodenoscopy (EGD), combined 01/02/2024 8:00 AM CDT Office Visit [address] [phone] Lauren Claudio PA-C [address] [place], [place] [phone] Kelli Perez MD [address] [place] [address] [phone] Scheduled Procedures Name Priority Associated Diagnoses Date/Ti [...] COVID-19 07/13/2021 07/13/2021 07/14/2021 3:04 PM METAL ENGRAVER Rule Out COVID-19 07/18/2021 07/18/2021 07/20/2021 1:56 PM METAL ENGRAVER COVID-19 07/18/2021 07/18/2021 08/08/2021 11:3 9 PM METAL ENGRAVER Rule Out COVID-19 12/18/2021 12/18/2021 12/19/2021 11:34 AM CDT Rule Out COVID-19 02/24/2022 02/24/2022 02/25/2022 1:08 PM CDT Rule Out COVID-19 04/26/2022 04/26/2022 04/26/2022 6:47 AM CDT Rule Out COVID-19 05/17/2022 05/17/2022 05/17/2022 10:20 PM METAL ENGRAVER Rule Out COVID-19 06/09/2022 06/09/2022 06/09/2022 9:35 AM METAL ENGRAVER COVID-19 06/09/2022 06/09/2022 06/30/2022 11:4 1 PM METAL ENGRAVER Rule Out COVID-19 11/10/2022 11/10/2022 11/11/2022 12:17 PM CDT Rule Out COVID-19 03/07/2023 03/07/2023 03/07/2023 1:20 PM CDT Assessment Noted Time PHQ-9 Depression Total Score: 9 06/25/20 20 7:04 AM METAL ENGRAVER documented as of this encounter Care Teams Paper Processing Machine Helper Relationship Specialty Start Date End Date Marija Edgar APRN PRICING INTERN PCP - General Nurse Practitioner 04/30/20 04/14/23 Esha Grimm PA-C [address] [place] [phone] PCP - General Family Medicine 05/04/23 Lita Oseguera Personal Advocate & Liaison (PAL) 02/28/20 03/27/23 Chanelle Mccann APRN CNAdam [address] [facility] 200 [place] [address] Assigned OBGYN Provider 05/02/2005/09 Kyara De La Fuente, VJ Specialty Farmworker Fruit Neurology 06/04/20 03/05/21 Marija Edgar APRN PRICING INTERN Assigned PCP 06/08/20 04/29/23 Mynor Broussard MD 6363 [facility] 500 [place] [address] Assigned Surgical Provider 06/01/20 11/28/21 Keisha Dotson MD 909 [place] [address] Assigned Neuroscience Provider 06/04/20 04/01/23 Stacey Briones, CLASSIFIED AD CLERK Lead Farmworker Fruit Primary Care - CC 08/11/2012/30 Lesley Moody, [...] [facility] [address] [place] [address] Pharmacist Pharmacist 04/17/21 Rain Galaviz PA-C [address] [place] [address] [address] [place] [place], [place] [phone] Physician Feedlot Manager Dermatology 04/28/21 Summer Lara MD [address] [place], [place] 366534 Assigned OBGYN Provider 05/10/2105/23 Summer Lara MD [address] [place], [place] 906064 Assigned OBGYN Provider 05/31/21 2 Summer Lara MD [address] [place], [place] [address]68[address] Assigned OBGYN Provider 05/24/2105/30 Tavia Wyatt MD [address] 24 [place] [address] Dermatology 07/14/21 Johnny Murillo MD [address] [place] [address] [place] [address] Assigned Musculoskeletal Provider 08/30/21 03/17/22 Erica Farrell APRN PRICING INTERN 6405 [facility] [address] [place] [address] Nurse Practitioner Cardiovascular Disease 09/09/21 Teresita Bean, [facility] [address] [facility] [place] [address] Pharmacist Pharmacist 09/24/21 09/29/21 Tavia Wyatt MD Assigned Surgical Provider 11/29/21 05/07/22 Diana Desir, [facility] 3033 [place] [address] Assigned MTM Pharmacist 01/02/22 Rich Barrett MD 516 [facility] 9A [place], [place] [address] Physician Ophthalmology 01/21/22 Neil Kent MD 500 [place], [place] [address]055 Dermatology 02/24/22 Roney Story DPM 10847 [facility] [address] [place], [place] 450117 Assigned Musculoskeletal Provider 03/20/22 08/13/22 Erica Farrell APRN PRICING INTERN 1700 [place] [address] Assigned Heart and Vascular Provider 04/03/22 04/16/22 Diana Desir, [facility] 30[address] [place], [place] 684586 Assigned MTM Pharmacist 04/07/22 Jelena David OD [address] [facility] [place] [address] Assigned Surgical Provider 05/08/22 10/08/22 Galo Burrell MD Assigned Heart and Vascular Provider 04/17/22 06/11/22 Livan Sharif MD [address] [place], [place] [address] Cardiovascular Disease 05/14/22 Livan Sharif MD [address], [address] [place] [address] Assigned Heart and Vascular Provider 06/12/22 07/23/22 Catherine Cm MD [address] [place], [place] [address] Cardiovascular Disease 07/21/22 Valery Veronica, PA-C 909 [place], [place] [address] Physician Feedlot Manager Dermatology 07/21/22 Catherine Cm MD [address] [place] [address] Assigned Heart and Vascular Provider 07/24/22 11/05/22 Johnny Murillo MD [address] [place], [place] 463334 Assigned Musculoskeletal Provider 08/14/22 10/08/22 Brea Quinn APRN PRICING INTERN 500 [facility] [place], [place] 15[address] Nurse Practitioner Dermatology 09/21/22 Brea Quinn APRN PRICING INTERN 6401 [place], [place] 787862 Assigned Surgical Provider 10/09/22 [place] [address] 953697 Assigned Musculoskeletal Provider 10/09/22 Livan Sharif MD [address], [facility] [address] [place] [address] Assigned Heart and Vascular Provider 11/06/22 11/12/22 Catherine Cm MD [address] [facility] [address] [place] [address] Assigned Heart and Vascular Provider 11/13/22 05/27/23 Sydnie Martinez RN Personal Advocate & Liaison (PAL) Family Medicine 03/28/23 07/31/23 Alfonso Renteria MD 5775 [facility] 200 [place] [address] Assigned Neuroscience Provider 04/02/23 Cheng Todd PA-C [address] [place] [address] Assigned PCP 04/30/23 07/15/23 Radha Lomeli APRN PRICING INTERN [address] [place] [address] Assigned Heart and Vascular Provider 05/28/23 Jelena David OD [address] [facility] [place] [address] MD Ophthalmology 06/15/23 Pao Joseph, VJ Personal Advocate & Liaison (PAL) Nurse 08/01/23 Esha Grimm PA-C [address] [place] [phone] Assigned PCP 07/16/23 Valery Veronica PA-C 9 [place], [place] 211915 Physician Feedlot Manager Dermatology 09/19/23 Rey Tay MD [address] [place] [address] Gastroenterology 09/20/23 Rocky Zepeda DO [address] [place] [address] Physician Gastroenterology 09/20/23 Philip Dumont MD [address] [place] [address] 025305 Physician Ophthalmology 09/22/23 documented as of this encounter
--- OUTSIDE RECORDS SUMMARY | 2023-10-28 16:48 | XMS_ITS | Encounter Summary ---
Author Name Unknown Organization [facility] Address [address] [place] [address] Care Team Providers Care Clothing Busheler Name Role Phone Lita Oseguera Unavailable Unavailable Marija Edgar APRN PICC NURSE Primary Care Provider [facility] SHRIMP HEADER CNM Unavailab le Kyara De La Fuente RN Unavailable [phone] Marija Edgar APRN PICC NURSE Unavailable Unavail able Mynor Broussard MD Unavailable [phone] Keisha Dotson MD Unavailable [phone] Mary Mejia Unavailable Unavailable Staecy Briones MANUFACTURING STOREPERSON Unavailable [phone] Lesley Moody CHW Unavailable Mary Mejia Unavailable Unavailable Lita Oseguera Unavailable Unavailable Galo Burrell MD Unavailable Unavailable Cristina Wood Unavailable Lesley Moody CHW Unavailable Meredith Bedoya Unavailable Unavailable Cristina Wood Unavailable Diana Desir [facility] Unavailable [phone] Rain Galaviz PA-C Unavailable [phone] Summer Lara MD Unavailable [phone] Summer Lara MD Unavailable [phone] Summer Lara MD Unavailable + [phone] Tavia Wyatt MD Unavailable Unavailable Johnny Murillo MD Unavailable +1- Erica Farrell SHRIMP HEADER PICC NURSE Unavailable + VikasTeresita RPH Unavailable Tavia Wyatt MD Unavailable Unavailable Diana Desir [facility] Unavailable [phone] Rich Barrett MD Unavailable [phone] Neil Kent MD Unavailable Roney Story DPM Unavailable [phone] Erica Farrell SHRIMP HEADER PICC NURSE Unavailable + Diana Desir [facility] Unavailable [phone] Jelena David OD Unavailable [phone] Galo Burrell MD Unavailable Unavailable Livan Sharif MD Unavailable + Livan Sharif MD Unavailable + Catherine Cm MD Unavailable + Valery Veronica PA-C Unavailable + [phone] Catherine Cm MD Unavailable + Johnny Murillo MD Unavailable +1- Brea Quinn APRN PICC NURSE Unavailable [phone] Brea Quinn SHRIMP HEADER PICC NURSE Unavailable [phone] Jose Francisco Johnson MD Unavailable Livan Sharif MD Unavailable + Catherine Cm MD Unavailable + Sydnie Martinez RN Unavailable Unavailable Alfonso Renteria MD Unavailable [phone] Esha GrimmC Primary Care Provider [phone] Cheng ToddC Unavailable [phone] Radha Lomeli APRN PICC NURSE Unavailable Jelena David OD Unavailable Pao Joseph RN Unavailable Unavailable Esha Grimm PA-C Unavailable [phone] Valery VeronicaC Unavailable Rey Tay MD Unavailable Rocky Zepeda DO Unavailable Philip Dumont MD Unavailable Reason for Visit * Reason Comments Medication Refill Encounter Details Date Type Department Care Team (Late st Contact Info) Description 07/14/[address] [address] Rakesh Cid PA-C [address] [place] [address] Medication Refill Social History Tobacco [...] COVID-19? No / Unsure 06/24/2020 3:01 PM EMPLOYMENT TRAINING SPECIALIST documented as of this encounter Miscellaneous Notes * Telephone Encounter - Estephania Black RN - 07/16/2020 11:38 AM EMPLOYMENT TRAINING SPECIALIST Routing refill request to provider for review/approval because: Labs out of range: PHQ9> 4 patient was seen 3 weeks ago. Estephania Black RN Flex OYMENT TRAINING SPECIALIST * Telephone Encounter - Brea Perry RN - 07/16/2020 11:34 AM EMPLOYMENT TRAINING SPECIALIST Routing to correct clinic. OYMENT TRAINING SPECIALIST documented in this encounter Plan of Treatment Upcoming Encounters Date Type Department Care Team (Late st Contact Info) Description 11/01/2023 8:[address] [facility] Imaging [address] [facility] [place] [address] Lauren Claudio PA-C [address] [place], [place] [phone] 11/03/2023 8:00 AM CDT Office Visit [address] [phone] Valery Veronica PA-C [address] [place] [address] 11/29/2023 8:00 AM CDT Office Visit [facility] [address] [place] [phone] Esha Grimm PA-C [address] [place] [phone] 12/19/2023 11:30 AM CDT Hospital Encounter [address] 5th [place] [address] Rocky Zepeda DO 500 [place] [address] 12/19/2023 11:30 AM CDT - 12/19/2023 12:00 PM CDT Surgery [facility] [address] [place] [phone] Rocky Zepeda DO 500 [place] [address] Esophagoscopy, gastroscopy, duodenoscopy (EGD), combined 01/02/2024 8:00 AM CDT Office Visit [address] [phone] Lauren Claudio PA-C [address] [place] [address] [phone] Kelli Perez MD [address] [place] [address] 530284 Scheduled Procedures Name Priority Associated Diagnoses Date/Ti mt ESOPHAGOGASTRODUODENOSCOPY Eosinophilic esophagitis Esophageal dysphagia 12/19/2023 11:30 AM CDT documented as of this encounter Visit Diagnoses Diagnosis Anxiety Anxiety state, unspecified Eosinophilic esophagitis Esophageal dysphagia Dysphagia, pharyngoesophageal phase documented in this encounter Additional Health Concerns Infection Onset Date Last Indicated Resolved Time Rule Out COVID-19 07/30/2020 07/30/2020 07/30/2020 7:11 PM EMPLOYMENT TRAINING SPECIALIST Rule Out COVID-19 08/30/2020 08/30/2020 08/30/2020 5:05 PM EMPLOYMENT TRAINING SPECIALIST Rule Out COVID-19 09/24/2020 09/24/2020 09/24/2020 9:24 AM CDT Rule Out COVID-19 11/05/2020 11/05/2020 11/06/2020 1:09 PM CDT Rule Out COVID-19 05/11/2021 05/11/2021 05/13/2021 10:18 AM CDT Rule Out COVID-19 07/13/2021 07/13/2021 07/14/2021 3:04 PM EMPLOYMENT TRAINING SPECIALIST Rule Out COVID-19 07/18/2021 07/18/2021 07/20/2021 1:56 PM EMPLOYMENT TRAINING SPECIALIST COVID-19 07/18/2021 07/18/2021 08/08/2021 11:3 9 PM EMPLOYMENT TRAINING SPECIALIST Rule Out COVID-19 12/18/2021 12/18/2021 12/19/2021 11:34 AM CDT Rule Out COVID-19 02/24/2022 02/24/2022 02/25/2022 1:08 PM CDT Rule Out COVID-19 04/26/2022 04/26/2022 04/26/2022 6:47 AM CDT Rule Out COVID-19 05/17/2022 05/17/2022 05/17/2022 10:20 PM EMPLOYMENT TRAINING SPECIALIST Rule Out COVID-19 06/09/2022 06/09/2022 06/09/2022 9:35 AM EMPLOYMENT TRAINING SPECIALIST COVID-19 06/09/2022 06/09/2022 06/30/2022 11:4 1 PM EMPLOYMENT TRAINING SPECIALIST Rule Out COVID-19 11/10/2022 11/10/2022 11/11/2022 12:17 PM CDT Rule Out COVID-19 03/07/2023 03/07/2023 03/07/2023 1:20 PM CDT Assessment Noted Time PHQ-9 Depression Total Score: 9 06/25/20 20 7:04 AM EMPLOYMENT TRAINING SPECIALIST documented as of this encounter Care Teams Clothing Busheler Relationship Specialty Start Date End Date Marija Edgar APRN PICC NURSE PCP - General Nurse Practitioner 04/30/20 04/14/23 Esah Grimm PA-C [address] [place] [phone] PCP - General Family Medicine 05/04/23 Lita Oseguera Personal Advocate & Liaison (PAL) 02/28/20 03/27/23 Chanelle Mccann APRN CNM [address]99 [facility] 200 [place] [address] Assigned OBGYN Provider 05/02/2005/09 Kyara De La Fuente, VJ Specialty Cone Trucker Neurology 06/04/20 03/05/21 Marija Edgar APRN PICC NURSE Assigned PCP 06/08/20 04/29/23 Mynor Broussard MD 6363 [facility] 500 [place], [place] 148425 Assigned Surgical Provider 06/01/20 11/28/21 Keisha Dotson MD 9 [place], [place] 329835 Assigned Neuroscience Provider 06/04/20 04/01/23 Mary Mejia Financial Resource Worker 08/07/20 08/21/20 Stacey Briones, [facility] Lead Cone Trucker Primary Care - CC 08/11/2012/30 Lesley Moody, [facility] Community Health Worker 08/11/2010/01 Mary Mejia Financial Resource Worker 09/02/20 10/06/20 Lita Oseguera Personal Advocate & Liaison (PAL) Family Medicine 09/10/20 09/21/20 Galo Burrell MD Assigned Heart and Vascular Provider 10/05/20 04/02/22 Cristina Wood Financial Resource Worker 10/07/20 10/14/20 Lesley Moody, [facility] Community Health Worker 10/23/2012/30 Meredith Bedoya Financial Resource Worker 10/23/20 11/23/20 Cristina Wood Financial Resource Worker 02/09/21 02/09/21 Diana Desir, [facility] [address] [place] [address] Pharmacist Pharmacist 04/17/21 Rain Galaviz PA-C [address] [place] [address] [address] [place], [place] [phone] Physician Cullet Washer Dermatology 04/28/21 Summer Lara MD 606 [facility] [place] [phone] Assigned OBGYN Provider 05/10/2105/23 Summer Lara MD 606 [facility] [place], [place] [phone] Assigned OBGYN Provider 05/31/21 2 Summer Lara MD 606 24 [place], [place] 644364 Assigned OBGYN Provider 05/24/2105/30 Tavia Wyatt MD [address] [place] [address] Dermatology 07/14/21 Johnny Murillo MD [address] [facility] [address] [place] [address] Assigned Musculoskeletal Provider 08/30/21 03/17/22 Erica Farrell APRN PICC NURSE 6405 [facility] [address] [place] [address] Nurse Practitioner Cardiovascular Disease 09/09/21 Teresita Bean [facility] [address] [place] [address] Pharmacist Pharmacist 09/24/21 09/29/21 Tavia Wyatt MD Assigned Surgical Provider 11/29/21 05/07/22 [facility] [address] [email or web address] [address] Assigned MTM Pharmacist 01/02/22 Rich Barrett MD [address] 467965 Physician Ophthalmology 01/21/22 Neil Kent MD 500 [place] [address] Dermatology 02/24/22 Roney Story DPM [address] [facility] [address] [place] [address] Assigned Musculoskeletal Provider 03/20/22 08/13/22 Erica Farrell APRN PICC NURSE 1700 [place] [address] Assigned Heart and Vascular Provider 04/03/22 04/16/22 [facility] [address] [email or web address] [address] Assigned MTM Pharmacist 04/07/22 Jelena David OD [address] [facility] [place] [address] Assigned Surgical Provider 05/08/22 10/08/22 Galo Burrell MD Assigned Heart and Vascular Provider 04/17/22 06/11/22 Livan Sharif MD [address] [place] 08[address]65 Cardiovascular Disease 05/14/22 Livan Sharif MD [address] [place] 618725 Assigned Heart and Vascular Provider 06/12/22 07/23/22 Catherine Cm MD [address] [facility] [address] [place] 529555 Cardiovascular Disease 07/21/22 Valery Veronica, PA-C 909 [place], [place] 205225 Physician Cullet Washer Dermatology 07/21/22 Catherine Cm MD [address] [place] 475635 Assigned Heart and Vascular Provider 07/24/22 11/05/22 Johnny Murillo MD [address] [place] [address] 221044 Assigned Musculoskeletal Provider 08/14/22 10/08/22 Brea Quinn APRN PICC NURSE 500 [place], [place] 616155 Nurse Practitioner Dermatology 09/21/22 Brea Quinn APRN PICC NURSE 6401 [place], [place] 812722 Assigned Surgical Provider 10/09/22 [place] [address] [facility] 300 [place], [place] 854047 Assigned Musculoskeletal Provider 10/09/22 Livan Sharif MD [address] [facility] [address] [place], [place] 214625 Assigned Heart and Vascular Provider 11/06/22 11/12/22 Catherine Cm MD [address] [facility] [address] [place] [address] Assigned Heart and Vascular Provider 11/13/22 05/27/23 Sydnie Martinez RN Personal Advocate & Liaison (PAL) Family Medicine 03/28/23 07/31/23 Alfonso Renteria MD 5775 [facility] 200 [place], [place] 399586 Assigned Neuroscience Provider 04/02/23 Cheng Todd PA-C [address] [place] [address] Assigned PCP 04/30/23 07/15/23 Radha Lomeli, ARLENE PICC NURSE 6[address] [facility] [address] [place] [address] Assigned Heart and Vascular Provider 05/28/23 Jelena David OD 3305 [facility] [place] [address] MD Ophthalmology 06/15/23 Pao Joseph, VJ Personal Advocate & Liaison (PAL) Nurse 08/01/23 Esha Grimm PA-C [address] [place] [phone] Assigned PCP 07/16/23 Valery Veronica PA-C [address] [place] [address] 700275 Physician Cullet Washer Dermatology 09/19/23 Rey Tay MD [address] [place] [address] 465755 Gastroenterology 09/20/23 Rocky Zepeda DO [address] [place] [address] 633345 Physician Gastroenterology 09/20/23 Philip Dumont MD [address] [place] [address] 655535 Physician Ophthalmology 09/22/23 documented as of this encounter
--- OUTSIDE RECORDS SUMMARY | 2023-10-28 16:48 | XMS_ITS | Encounter Summary ---
Author Name Unknown Organization [facility] Address [address] [place] [address] Care Team Providers Care Manager Integration Name Role Phone Lita Oseguera Unavailable Unavailable Marija Edgar APRN JUNIOR QA ANALYST Primary Care Provider [facility] EMAIL DESIGNER CNM Unavailab le Kyara De La Fuente RN Unavailable [phone] Marija Edgar APRN JUNIOR QA ANALYST Unavailable Unavail able Mynor Broussard MD Unavailable [phone] Keisha Dotson MD Unavailable Mary Mejia Unavailable Unavailable Stacey Briones SUPPORT ASSOCIATE Unavailable [phone] Lesley Moody CHW Unavailable [phone] Mary Mejia Unavailable Unavailable Lita Oseguera Unavailable Unavailable Galo Burrell MD Unavailable Unavailable Cristina Wood Unavailable Lesley Moody CHW Unavailable Meredith Bedoya Unavailable Unavailable Cristina Wood Unavailable Diana Desir [facility] Unavailable [phone] Rain Galaviz PA-C Unavailable Summer Lara MD Unavailable [phone] Summer Lara MD Unavailable +[phone] Summer Lara MD Unavailable + [phone] Tavia Wyatt MD Unavailable Unavailable Johnny Murillo MD Unavailable +1- Erica Farrell EMAIL DESIGNER JUNIOR QA ANALYST Unavailable + VikasTeresita RPH Unavailable Tavia Wyatt MD Unavailable Unavailable Diana Desir [facility] Unavailable [phone] Rich Barrett MD Unavailable [phone] Neil Kent MD Unavailable Roney Story DPM Unavailable [phone] Erica Farrell EMAIL DESIGNER JUNIOR QA ANALYST Unavailable + Diana Desir [facility] Unavailable [phone] Jelena David OD Unavailable [phone] Galo Burrell MD Unavailable Unavailable Livan Sharif MD Unavailable + Livan Sharif MD Unavailable + Catherine Cm MD Unavailable + Valery Veronica PA-C Unavailable + [phone] Catherine Cm MD Unavailable + Johnny Murillo MD Unavailable +1- Brea Qunin APRN JUNIOR QA ANALYST Unavailable [phone] Brea Quinn EMAIL DESIGNER JUNIOR QA ANALYST Unavailable [phone] Jose Francisco Johnson MD Unavailable Livan Sharif MD Unavailable + Catherine Cm MD Unavailable + Sydnie Martinez RN Unavailable Unavailable Alfonso Renteria MD Unavailable [phone] Esha GrimmC Primary Care Provider [phone] Cheng ToddC Unavailable Radha Lomeli APRN JUNIOR QA ANALYST Unavailable Jelena David OD Unavailable Pao Joseph RN Unavailable Unavailable Esha Grimm PA-C Unavailable [phone] Valery VeronicaC Unavailable Rey Tay MD Unavailable Rocky Zepeda DO Unavailable Philip Dumont MD Unavailable Encounter Details Date Type Department Care Team (Late st Contact Info) Description 07/17/2020 MyC Medical Advice M Physicians [facility] Epilepsy Care [address] [facility], [address] [place] [address] Keisha Dotson MD 9 [place] [address] Social History Tobacco Use Types [...] COVID-19? No / Unsure 06/24/2020 3:01 PM RETAIL STORE MANAGER documented as of this encounter Miscellaneous Notes [...] her shewouldn't need medication her whole life. [place] STORE MANAGER documented in this encounter Plan of Treatment Upcoming Encounters Date Type Department Care Team (Late st Contact Info) Description 11/01/2023 8:00 AM CDT Appointment [facility] Imaging [address] [place] [address] Lauren Claudio PA-C [address] [place] [address] 11/03/2023 8:00 AM CDT Office Visit [address] [phone] Valery Veronica PA-C 909 [place] [address] 11/29/2023 8:00 AM CDT Office Visit [facility] [address] [place] [phone] Esha Grimm PA-C [address] [place] [phone] 12/19/2023 11:30 AM CDT Hospital Encounter [address] [phone] Rocky Zepeda DO 500 [place], [place] [address] 12/19/2023 11:30 AM CDT - 12/19/2023 12:00 PM CDT Surgery [address] [phone] Rocky Zepeda DO 500 [place], [place] 7406[address] Esophagoscopy, gastroscopy, duodenoscopy (EGD), combined 01/02/2024 8:00 AM CDT Office Visit [address] [phone] Lauren Claudio PA-C [address] [place], [place] [phone] Kelli Perez MD [address] [place] [address] [phone] Scheduled Procedures Name Priority Associated Diagnoses Date/Ti pa ESOPHAGOGASTRODUODENOSCOPY Eosinophilic esophagitis Esophageal dysphagia 12/19/2023 11:30 AM CDT documented as of this encounter Visit Diagnoses Not on filedocumented in this encounter Additional Health Concerns Infection Onset Date Last Indicated Resolved Time Rule Out COVID-19 07/30/2020 07/30/2020 07/30/2020 7:11 PM RETAIL STORE MANAGER Rule Out COVID-19 08/30/2020 08/30/2020 08/30/2020 5:05 PM RETAIL STORE MANAGER Rule Out COVID-19 09/24/2020 09/24/2020 09/24/2020 9:24 AM CDT Rule Out COVID-19 11/05/2020 11/05/2020 11/06/2020 1:09 PM CDT Rule Out COVID-19 05/11/2021 05/11/2021 05/13/2021 10:18 AM CDT Rule Out COVID-19 07/13/2021 07/13/2021 07/14/2021 3:04 PM RETAIL STORE MANAGER Rule Out COVID-19 07/18/2021 07/18/2021 07/20/2021 1:56 PM RETAIL STORE MANAGER COVID-19 07/18/2021 07/18/2021 08/08/2021 11:3 9 PM RETAIL STORE MANAGER Rule Out COVID-19 12/18/2021 12/18/2021 12/19/2021 11:34 AM CDT Rule Out COVID-19 02/24/2022 02/24/2022 02/25/2022 1:08 PM CDT Rule Out COVID-19 04/26/2022 04/26/2022 04/26/2022 6:47 AM CDT Rule Out COVID-19 05/17/2022 05/17/2022 05/17/2022 10:20 PM RETAIL STORE MANAGER Rule Out COVID-19 06/09/2022 06/09/2022 06/09/2022 9:35 AM RETAIL STORE MANAGER COVID-19 06/09/2022 06/09/2022 06/30/2022 11:4 1 PM RETAIL STORE MANAGER Rule Out COVID-19 11/10/2022 11/10/2022 11/11/2022 12:17 PM CDT Rule Out COVID-19 03/07/2023 03/07/2023 03/07/2023 1:20 PM CDT Assessment Noted Time PHQ-9 Depression Total Score: 9 06/25/20 20 7:04 AM RETAIL STORE MANAGER documented as of this encounter Care Teams Manager Integration Relationship Specialty Start Date End Date Marija Edgar APRN JUNIOR QA ANALYST PCP - General Nurse Practitioner 04/30/20 04/14/23 Esha Grimm PA-C [address] [place] [phone] PCP - General Family Medicine 05/04/23 Lita Oseguera Personal Advocate & Liaison (PAL) 02/28/20 03/27/23 Chanelle Mccann APRN CNM [address] [address] [facility], [address] 200 [place] [address] Assigned OBGYN Provider 05/02/2005/09 Kyara De La Fuente, RN Specialty Cut Off Sawyer Neurology 06/04/20 03/05/21 Marija Edgar APRN JUNIOR QA ANALYST Assigned PCP 06/08/20 04/29/23 Mynor Broussard MD 6363 [facility] [address] 500 [place] [address] Assigned Surgical Provider 06/01/20 11/28/21 Keisha Dotson MD 909 [place] [address] Assigned Neuroscience Provider 06/04/20 04/01/23 Mary Mejia Financial Resource Worker 08/07/20 08/21/20 Stacey Briones, SUPPORT ASSOCIATE Lead Cut Off Sawyer Primary Care - CC 08/11/2012/30 Lesley Moody, CHW Community Health Worker 08/11/2010/01 Mary Mejia Financial Resource Worker 09/02/20 10/06/20 Lita Oseguera Personal Advocate & Liaison (PAL) Family Medicine 09/10/20 09/21/20 Galo Burrell MD Assigned Heart and Vascular Provider 10/05/20 04/02/22 Cristina Wood Financial Resource Worker 10/07/20 10/14/20 Lesley Moody, [facility] Community Health Worker 10/23/2012/30 Meredith Bedoya Financial Resource Worker 10/23/20 11/23/20 Cristina Wood Financial Resource Worker 02/09/21 02/09/21 Diana Desir, [facility] [place] [address] Pharmacist Pharmacist 04/17/21 Rain Galaviz PA-C [address] [place] [address] [place] [address] Physician Equal Opportunity Officer Dermatology 04/28/21 Summer Lara MD [address] [place] [address] 853814 Assigned OBGYN Provider 05/10/2105/23 Summer Lara MD [address] [place] [address] 959284 Assigned OBGYN Provider 05/31/21 2 Summer Lara MD [address] [place] [address] Assigned OBGYN Provider 05/24/2105/30 Tavia Wyatt MD [address] [place] [address] Dermatology 07/14/21 Johnny Murillo MD [address] [place] [address] Assigned Musculoskeletal Provider 08/30/21 03/17/22 Erica Farrell APRN JUNIOR QA ANALYST [address] [facility] [place] [address] Nurse Practitioner Cardiovascular Disease 09/09/21 Teresita Bean, [facility] [address] [place] [phone] Pharmacist Pharmacist 09/24/21 09/29/21 Tavia Wyatt MD Assigned Surgical Provider 11/29/21 05/07/22 [facility] 3033 [place] [address] Assigned MTM Pharmacist 01/02/22 Rich Barrett MD 516 [facility] 9[address] [place], [place] 650845 Physician Ophthalmology 01/21/22 Neil Kent MD 500 [place] [address] Dermatology 02/24/22 Roney Story DPM [address] [facility] [address] [place] [address] Assigned Musculoskeletal Provider 03/20/22 08/13/22 Erica Farrell APRN JUNIOR QA ANALYST 9200 [place] [address] Assigned Heart and Vascular Provider 04/03/22 04/16/22 Diana Desir, [facility] 3033 [place] [address] Assigned MTM Pharmacist 04/07/22 Jelena David OD [address] [place] [address] Assigned Surgical Provider 05/08/22 10/08/22 Galo Burrell MD Assigned Heart and Vascular Provider 04/17/22 06/11/22 Livan Sharif MD [address] [place] [address] Cardiovascular Disease 05/14/22 Livan Sharif MD [address] [place] 92[address]95 Assigned Heart and Vascular Provider 06/12/22 07/23/22 Catherine Cm MD [address] [place] [address] Cardiovascular Disease 07/21/22 Valery Veronica PA-C 909 [place], [place] [address] Physician Equal Opportunity Officer Dermatology 07/21/22 Catherine Cm MD [address] [place] [address] Assigned Heart and Vascular Provider 07/24/22 11/05/22 Johnny Murillo MD [address] [address] Assigned Musculoskeletal Provider 08/14/22 10/08/22 Brea Quinn APRN JUNIOR QA ANALYST 500 [place] [address] Nurse Practitioner Dermatology 09/21/22 Brea Quinn APRN JUNIOR QA ANALYST [facility] [place] [address] Assigned Surgical Provider 10/09/22 [place] [address] [address] Assigned Musculoskeletal Provider 10/09/22 Livan Sharif MD [address] [facility] [address] [place] [address] Assigned Heart and Vascular Provider 11/06/22 11/12/22 Catherine Cm MD [address] [facility] [address] [place] [address] Assigned Heart and Vascular Provider 11/13/22 05/27/23 Sydnie Martinez RN Personal Advocate & Liaison (PAL) Family Medicine 03/28/23 07/31/23 Alfonso Renteria MD [address] [facility] 200 [place], [place] [address]006 Assigned Neuroscience Provider 04/02/23 Cheng Todd PA-C [address] [place], [place] [phone] Assigned PCP 04/30/23 07/15/23 Radha Lomeli APRN JUNIOR QA ANALYST [address] [place], [place] 9288[address] Assigned Heart and Vascular Provider 05/28/23 Jelena David OD [address] [place] [address] MD Ophthalmology 06/15/23 Pao Joseph, VJ Personal Advocate & Liaison (PAL) Nurse 08/01/23 Esha Grimm PA-C [address] [place] [phone] Assigned PCP 07/16/23 Valery Veronica PA-C [address] [place] [address] 973905 Physician Equal Opportunity Officer Dermatology 09/19/23 Rey Tay MD [address] [place] [address] 558895 Gastroenterology 09/20/23 Rocky Zepeda DO [address] [place] [address] 956255 Physician Gastroenterology 09/20/23 Philip Dumont MD [address] [place] [address] 610855 Physician Ophthalmology 09/22/23 documented as of this encounter
--- OUTSIDE RECORDS SUMMARY | 2023-10-28 16:48 | XMS_ITS | Encounter Summary ---
Author Name Unknown Organization [facility] Address [address] [place] [address] Care Team Providers Care Vibration Technician Name Role Phone Lita Oseguera Unavailable Unavailable Marija Edgar APRN CONCRETE MIXING TRUCK DRIVER Primary Care Provider [facility] FAIRING MAN CNM Unavailab le Kyara De La Fuente RN Unavailable [phone] Marija Edgar APRN CONCRETE MIXING TRUCK DRIVER Unavailable Unavail able Mynor Broussard MD Unavailable [phone] Keisha Dotson MD Unavailable Mary Mejia Unavailable Unavailable Stacey Briones UNIVERSITY REGISTRAR Unavailable Lesley Moody CHW Unavailable [phone] Mary Mejia Unavailable Unavailable Lita Oseguera Unavailable Unavailable Galo Burrell MD Unavailable Unavailable Cristina Wood Unavailable Lesley Moody CHW Unavailable [phone] Meredith Bedoya Unavailable Unavailable Cristina Wood Unavailable Diana Desir [facility] Unavailable Rain Galaviz PA-C Unavailable Summer Lraa MD Unavailable [phone] Summer Lara MD Unavailable [phone] Summer Lara MD Unavailable + [phone] Tavia Wyatt MD Unavailable Unavailable Johnny Murillo MD Unavailable +1- Erica Farrell FAIRING MAN CONCRETE MIXING TRUCK DRIVER Unavailable + VikasTeresita RPH Unavailable Tavia Wyatt MD Unavailable Unavailable Diana Desir [facility] Unavailable [phone] Rich Barrett MD Unavailable [phone] Neil Kent MD Unavailable Roney Story DPM Unavailable [phone] Erica Farrell FAIRING MAN CONCRETE MIXING TRUCK DRIVER Unavailable + Diana Desir [facility] Unavailable [phone] Jelena David OD Unavailable [phone] Galo Burrell MD Unavailable Unavailable Livan Sharif MD Unavailable + Livan Sharif MD Unavailable + Catherine Cm MD Unavailable + Valery Veronica PA-C Unavailable + [phone] Catherine Cm MD Unavailable + Johnny Murillo MD Unavailable +1- Brea Quinn APRN CONCRETE MIXING TRUCK DRIVER Unavailable [phone] Brea Quinn FAIRING MAN CONCRETE MIXING TRUCK DRIVER Unavailable [phone] Jose Francisco Johnson MD Unavailable Livan Sharif MD Unavailable + Catherine Cm MD Unavailable + Sydnie Martinez RN Unavailable Unavailable Alfonso Renteria MD Unavailable [phone] Esha GrimmC Primary Care Provider [phone] Cheng ToddC Unavailable [phone] Radha Lomeli APRN CONCRETE MIXING TRUCK DRIVER Unavailable Jelena David OD Unavailable Pao Joseph RN Unavailable Unavailable Esha Grimm PA-C Unavailable [phone] Valery VeronicaC Unavailable Rey Tay MD Unavailable Rocky Zepeda DO Unavailable Philip Dumont MD Unavailable [phone] Encounter Details Date Type Department Care Team (Late st Contact Info) Description 07/29/[address] [facility] Medical Advice [facility] Ep[facility] [address] [facility] [facility], [address] [place] [address] Keisha Dotson MD [address] [place] [address] Social History Tobacco Use Types [...] COVID-19? No / Unsure 07/30/2020 4:53 PM FLIGHT/TRANSPORT NURSE documented as of this encounter Plan of Treatment Upcoming Encounters Date Type Department Care Team (Late st Contact Info) Description 11/01/2023 8:00 AM CDT Appointment [facility] [address] [place] [address] Lauren Claudio PA-C [address] [place], [place] [phone] 11/03/2023 8:00 AM CDT Office Visit [address] [phone] Valery Veronica PA-C 909 [place] [address] 11/29/2023 8:00 AM CDT Office Visit [facility] [address] [place] [phone] Esha Grimm PA-C [address] [place] [phone] 12/19/2023 11:30 AM CDT Hospital Encounter [address] [phone] Rocky Zepeda DO 500 [place], [place] 8[address]25 12/19/2023 11:30 AM CDT - 12/19/2023 12:00 PM CDT Surgery [address] [phone] Rocky Zepeda DO 500 [place], [place] 4646[address] Esophagoscopy, gastroscopy, duodenoscopy (EGD), combined 01/02/2024 8:00 AM CDT Office Visit [facility] [address] [place] [address] Lauren Claudio PA-C [address] [place] [address] Kelli Perez MD [address] [place] [address] Scheduled Procedures Name Priority Associated Diagnoses Date/Ti nj ESOPHAGOGASTRODUODENOSCOPY Eosinophilic esophagitis Esophageal dysphagia 12/19/2023 11:30 AM CDT documented as of this encounter Visit Diagnoses Not on filedocumented in this encounter Additional Health Concerns Infection Onset Date Last Indicated Resolved Time Rule Out COVID-19 07/30/2020 07/30/2020 07/30/2020 7:11 PM FLIGHT/TRANSPORT NURSE Rule Out COVID-19 08/30/2020 08/30/2020 08/30/2020 5:05 PM FLIGHT/TRANSPORT NURSE Rule Out COVID-19 09/24/2020 09/24/2020 09/24/2020 9:24 AM CDT Rule Out COVID-19 11/05/2020 11/05/2020 11/06/2020 1:09 PM CDT Rule Out COVID-19 05/11/2021 05/11/2021 05/13/2021 10:18 AM CDT Rule Out COVID-19 07/13/2021 07/13/2021 07/14/2021 3:04 PM FLIGHT/TRANSPORT NURSE Rule Out COVID-19 07/18/2021 07/18/2021 07/20/2021 1:56 PM FLIGHT/TRANSPORT NURSE COVID-19 07/18/2021 07/18/2021 08/08/2021 11:3 9 PM FLIGHT/TRANSPORT NURSE Rule Out COVID-19 12/18/2021 12/18/2021 12/19/2021 11:34 AM CDT Rule Out COVID-19 02/24/2022 02/24/2022 02/25/2022 1:08 PM CDT Rule Out COVID-19 04/26/2022 04/26/2022 04/26/2022 6:47 AM CDT Rule Out COVID-19 05/17/2022 05/17/2022 05/17/2022 10:20 PM FLIGHT/TRANSPORT NURSE Rule Out COVID-19 06/09/2022 06/09/2022 06/09/2022 9:35 AM FLIGHT/TRANSPORT NURSE COVID-19 06/09/2022 06/09/2022 06/30/2022 11:4 1 PM FLIGHT/TRANSPORT NURSE Rule Out COVID-19 11/10/2022 11/10/2022 11/11/2022 12:17 PM CDT Rule Out COVID-19 03/07/2023 03/07/2023 03/07/2023 1:20 PM CDT Assessment Noted Time PHQ-9 Depression Total Score: 9 06/25/20 20 7:04 AM FLIGHT/TRANSPORT NURSE documented as of this encounter Care Teams Vibration Technician Relationship Specialty Start Date End Date Marija Edgar APRN CONCRETE MIXING TRUCK DRIVER PCP - General Nurse Practitioner 04/30/20 04/14/23 Esha Grimm PA-C [address] [place] [phone] PCP - General Family Medicine 05/04/23 Lita Oseguera Personal Advocate & Liaison (PAL) 02/28/20 03/27/23 Chanelle Mccann APRN CNM [address] [place] [address] 200 [place], [place] 357947 Assigned OBGYN Provider 05/02/2005/09 Kyara De La Fuente, RN Specialty Cnc Milling Machine Operator Neurology 06/04/20 03/05/21 Marija Edgar APRN CONCRETE MIXING TRUCK DRIVER Assigned PCP 06/08/20 04/29/23 Mynor Broussard MD [address] [facility] 500 [place] [address] Assigned Surgical Provider 06/01/20 11/28/21 Keisha Dotson MD 909 [place] [address] Assigned Neuroscience Provider 06/04/20 04/01/23 Mary Mejia Financial Resource Worker 08/07/20 08/21/20 Stacey Briones, [facility] Lead Cnc Milling Machine Operator Primary Care - CC 08/11/2012/30 Lesley Moody, [facility] Community Health Worker 08/11/2010/01 aMry Mejia Financial Resource Worker 09/02/20 10/06/20 Lita [facility] [address] [place] [address] Pharmacist Pharmacist 04/17/21 Rain Galaviz PA-C [address] [place] [address] [place] [address] Physician Senior Marketing Specialist Dermatology 04/28/21 Summer Lara MD [address] [place] [address] Assigned OBGYN Provider 05/10/2105/23 Summer Lara MD [address] [place] [address] Assigned OBGYN Provider 05/31/21 Summer Lara MD [address] [place] [address] Assigned OBGYN Provider 05/24/2105/30 Tavia Wyatt MD [address] [place] [address] Dermatology 07/14/21 Johnny Murillo MD [address] [place] [address] Assigned Musculoskeletal Provider 08/30/21 03/17/22 Erica Farrell APRN CONCRETE MIXING TRUCK DRIVER [address] [facility] [address] [place], [place] 341525 Nurse Practitioner Cardiovascular Disease 09/09/21 Terseita Bean [facility] [address] [place] [address] Pharmacist Pharmacist 09/24/21 09/29/21 Tavia Wyatt MD Assigned Surgical Provider 11/29/21 05/07/22 Diana Desir, [facility] [address] [place] [address] Assigned MTM Pharmacist 01/02/22 Rich Barrett MD [address] [address] Physician Ophthalmology 01/21/22 Neil Kent MD 500 [place], [place] 179645 Dermatology 02/24/22 Roney Story DPM [address] [facility] [address] [place], [place] 304187 Assigned Musculoskeletal Provider 03/20/22 08/13/22 Erica Farrell APRN CONCRETE MIXING TRUCK DRIVER 1700 [place] [address] Assigned Heart and Vascular Provider 04/03/22 04/16/22 Diana Desir, [facility] 3033 [place] [address] Assigned MTM Pharmacist 04/07/22 Jelena David OD [address] [facility] [address] Assigned Surgical Provider 05/08/22 10/08/22 Galo Burrell MD Assigned Heart and Vascular Provider 04/17/22 06/11/22 Livan Sharif MD [address] [facility] [address] [place] [address] Cardiovascular Disease 05/14/22 Livan Sharif MD [address], [facility] [address] [place] [address] Assigned Heart and Vascular Provider 06/12/22 07/23/22 Catherine Cm MD [address] [facility] [address] [place] 294725 Cardiovascular Disease 07/21/22 Valery Veronica, PAUcheC [address] [place] [address] 412455 Physician Senior Marketing Specialist Dermatology 07/21/22 Catherine Cm MD [address] [facility] [place] 352375 Assigned Heart and Vascular Provider 07/24/22 11/05/22 Johnny Murillo MD [facility] [address] 251524 Assigned Musculoskeletal Provider 08/14/22 10/08/22 Brea Quinn APRN CONCRETE MIXING TRUCK DRIVER [address] [place] [address] 309525 Nurse Practitioner Dermatology 09/21/22 Brea Quinn APRN CONCRETE MIXING TRUCK DRIVER [address] [place] [address] ENMA DOE 999352 Assigned Surgical Provider 10/09/22 [place] [address] 336217 Assigned Musculoskeletal Provider 10/09/22 Livan Sharif MD [address], [facility] [address] [place], [place] 453425 Assigned Heart and Vascular Provider 11/06/22 11/12/22 Catherine Cm MD [address] [place] [address] [place] 101025 Assigned Heart and Vascular Provider 11/13/22 05/27/23 Sydnie Martinez RN Personal Advocate & Liaison (PAL) Family Medicine 03/28/23 07/31/23 Alfonso Renteria MD [address] [facility] 200 [place] [address] Assigned Neuroscience Provider 04/02/23 Cheng Todd PA-C [address] [place], [place] 490[address]24 Assigned PCP 04/30/23 07/15/23 Radha Lomeli, ARLENE CONCRETE MIXING TRUCK DRIVER [address] [place] 7934[address] Assigned Heart and Vascular Provider 05/28/23 Jelena David OD [address] [facility] [address] Ophthalmology 06/15/23 Pao Joseph, VJ Personal Advocate & Liaison (PAL) Nurse 08/01/23 Esha Grimm PAUcheC [address] [place] [address]27[address]83 Assigned PCP 07/16/23 Valery Veronica PA-C 909 [place], [place] 806[address] Physician Senior Marketing Specialist Dermatology 09/19/23 Rey Tay MD [address] [place] [address] 856405 Gastroenterology 09/20/23 Rocky Zepeda DO [address] [place] [address] 551435 Physician Gastroenterology 09/20/23 Philip Dumont MD [address] [place] [address] Physician Ophthalmology 09/22/23 documented as of this encounter
--- OUTSIDE RECORDS SUMMARY | 2023-10-28 16:48 | XMS_ITS | Encounter Summary ---
Author Name Unknown Organization [facility] Address [address] [place] [address] Care Team Providers Care Automatic Data Processing Planner Name Role Phone Lita Oseguera Unavailable Unavailable Marija Edgar APRN TAILOR WOMEN'S GARMENT ALTERATION Primary Care Provider Chanelle Gutierrez MISSILEMAN CNM Unavailab le Kyara De La Fuente RN Unavailable [phone] Marija Edgar APRN TAILOR WOMEN'S GARMENT ALTERATION Unavailable Unavail able Mynor Broussard MD Unavailable [phone] Keisha Dotson MD Unavailable Stacey Briones ANIMAL PHYSIOLOGIST Unavailable [phone] Lesley Moody CHW Unavailable Mary Mejia Unavailable Unavailable Lita Oseguera Unavailable Unavailable Galo Burrell MD Unavailable Unavailable Cristina Wood Unavailable Lesley Moody CHW Unavailable Meredith Bedoya Unavailable Unavailable Cristina Wood Unavailable Diana Desir [facility] Unavailable Rain Galaviz PA-C Unavailable [phone] Summer Lara MD Unavailable [phone] Summer Lara MD Unavailable [phone] Summer Lara MD Unavailable [phone] Tavia Wyatt MD Unavailable Unavailable SembraJohnny ortiz MD Unavailable +[phone] Erica Farrell MISSILEMAN TAILOR WOMEN'S GARMENT ALTERATION Unavailable + Teresita Bean [facility] Unavailable Tavia Wyatt MD Unavailable Unavailable Diana Desir [facility] Unavailable [phone] Rich Barrett MD Unavailable +[phone] Neil Kent MD Unavailable Roney Story DPM Unavailable [phone] Erica Farrell MISSILEMAN TAILOR WOMEN'S GARMENT ALTERATION Unavailable + Diana Desir [facility] Unavailable [phone] Jelena David Radha Unavailable Galo Burrell MD Unavailable Unavailable Livan Sharif MD Unavailable + Livan Sharif MD Unavailable + Catherine Cm MD Unavailable + Valery Veronica PA-C Unavailable + [phone] Catherine Cm MD Unavailable + Johnny Murillo MD Unavailable +1- Brea Quinn MISSILEMAN TAILOR WOMEN'S GARMENT ALTERATION Unavailable +1- Brea Quinn MISSILEMAN TAILOR WOMEN'S GARMENT ALTERATION Unavailable [phone] Jose Francisco Johnson MD Unavailable Livan Sharif MD Unavailable + Catherine Cm MD Unavailable + Sydnie Martinez RN Unavailable Unavailable Alfonso Renteria MD Unavailable [phone] Esha GrimmC Primary Care Provider [phone] Cheng ToddC Unavailable [phone] Radha Lomeli APRN TAILOR WOMEN'S GARMENT ALTERATION Unavailable [phone] Jelena David OD Unavailable [phone] Pao Joseph RN Unavailable Unavailable Esha Grimm PA-C Unavailable [phone] Valery VeronicaC Unavailable [phone] Rey Tay MD Unavailable Rocky Zepeda DO Unavailable Philip Dumont MD Unavailable [phone] Encounter Details Date Type Department Care Team (Late st Contact Info) Description 08/24/2020 [facility] Medical Advice [address] [address] Marija Edgar, ARLENE TAILOR WOMEN'S GARMENT ALTERATION Social History Tobacco Use Types Packs/Day Years [...] How often do you attend chur or latter day services? More than 4 times per year [...] Answer Date Recorded PHQ-2 Score 0 08/12/2020 [facility] - Occupational Stress Questionnaire [...] slept in a alf (including now)? No 08/11/2020 Education Answer Date [...] COVID-19? No / Unsure 08/20/2020 12:47 PM ELECTRICAL CAD TECHNICIAN documented as of this encounter Miscellaneous Notes * Telephone Encounter - Marija Edgar APRN CNP - 08/25/2020 11:47 AM ELECTRICAL CAD TECHNICIAN Replied via MyChart Marija Edgar APRN CNP on 08/25/2020 at 11:51 AM TRICAL CAD TECHNICIAN documented in this encounter Plan of Treatment Upcoming Encounters Date Type Department Care Team (Late st Contact Info) Description 11/01/2023 8:00 AM CDT Appointment [facility] [address] [place] [phone] Lauren Claudio PA-C [address] [place] [address] 11/03/2023 8:00 AM CDT Office Visit [address] [phone] Valery Veronica PA-C [address] [place] [address] 11/29/2023 8:00 AM CDT Office Visit [facility] [address] [place] [phone] Esha Grimm PA-C [address]12 [place] [phone] 12/19/2023 11:30 AM CDT Hospital Encounter [address] [phone] Rocky Zepeda DO 500 [place], [place] 47[address]25 12/19/2023 11:30 AM CDT - 12/19/2023 12:00 PM CDT Surgery [address] [phone] Rocky Zepeda DO 500 [place], [place] 8[address]255 Esophagoscopy, gastroscopy, duodenoscopy (EGD), combined 01/02/2024 8:00 AM CDT Office [facility] [address] [place] [phone] Lauren Claudio PA-C [address] [place], [place] [phone] Kelli Perez MD [address] [address] Scheduled Procedures Name Priority Associated Diagnoses Date/Ti az ESOPHAGOGASTRODUODENOSCOPY Eosinophilic esophagitis Esophageal dysphagia 12/19/2023 11:30 AM CDT documented as of this encounter Visit Diagnoses Not on filedocumented in this encounter Additional Health Concerns Infection Onset Date Last Indicated Resolved Time Rule Out COVID-19 08/30/2020 08/30/2020 08/30/2020 5:05 PM ELECTRICAL CAD TECHNICIAN Rule Out COVID-19 09/24/2020 09/24/2020 09/24/2020 9:24 AM CDT Rule Out COVID-19 11/05/2020 11/05/2020 11/06/2020 1:09 PM CDT Rule Out COVID-19 05/11/2021 05/11/2021 05/13/2021 10:18 AM CDT Rule Out COVID-19 07/13/2021 07/13/2021 07/14/2021 3:04 PM ELECTRICAL CAD TECHNICIAN Rule Out COVID-19 07/18/2021 07/18/2021 07/20/2021 1:56 PM ELECTRICAL CAD TECHNICIAN COVID-19 07/18/2021 07/18/2021 08/08/2021 11:3 9 PM ELECTRICAL CAD TECHNICIAN Rule Out COVID-19 12/18/2021 12/18/2021 12/19/2021 11:34 AM CDT Rule Out COVID-19 02/24/2022 02/24/2022 02/25/2022 1:08 PM CDT Rule Out COVID-19 04/26/2022 04/26/2022 04/26/2022 6:47 AM CDT Rule Out COVID-19 05/17/2022 05/17/2022 05/17/2022 10:20 PM ELECTRICAL CAD TECHNICIAN Rule Out COVID-19 06/09/2022 06/09/2022 06/09/2022 9:35 AM ELECTRICAL CAD TECHNICIAN COVID-19 06/09/2022 06/09/2022 06/30/2022 11:4 1 PM ELECTRICAL CAD TECHNICIAN Rule Out COVID-19 11/10/2022 11/10/2022 11/11/2022 12:17 PM CDT Rule Out COVID-19 03/07/2023 03/07/2023 03/07/2023 1:20 PM CDT Assessment Noted Time PHQ-9 Depression Total Score: 9 06/25/20 7:04 AM ELECTRICAL CAD TECHNICIAN documented as of this encounter Care Teams Automatic Data Processing Planner Relationship Specialty Start Date End Date Marija Edgar APRN TAILOR WOMEN'S GARMENT ALTERATION PCP - General Nurse Practitioner 04/30/20 04/14/23 Esha Grimm PA-C [address] [place] [phone] PCP - General Family Medicine 05/04/23 Lita Oseguera Personal Advocate & Liaison (PAL) 02/28/20 03/27/23 Chanelle Mccann APRN CNAdam [address] [place] [address] Assigned OBGYN Provider 05/02/2005/09 Kyara De La Fuente, RN Specialty Branch Services Manager Neurology 06/04/20 03/05/21 Marija Edgar APRN TAILOR WOMEN'S GARMENT ALTERATION Assigned PCP 06/08/20 04/29/23 Mynor Broussard MD 6363 [facility] 500 [place] [address] Assigned Surgical Provider 06/01/20 11/28/21 Keisha Dotson MD 909 [place], [place] 501[address] Assigned Neuroscience Provider 06/04/20 04/01/23 Stacey Briones LSW Lead Branch Services Manager Primary Care - CC 08/11/2012/30 Lesley Moody, W Community Health Worker 08/11/2010/01 NikiatimothyMary Financial Resource Worker 09/02/20 10/06/20 Lita Oseguera Personal Advocate & Liaison (PAL) Family Medicine 09/10/20 09/21/20 Galo Burrell MD Assigned Heart and Vascular Provider 10/05/20 04/02/22 Cristina Wood Financial Resource Worker 10/07/20 10/14/20 Lesley Moody, [facility] Community Health Worker 10/23/2012/30 Meredith Bedoya Financial Resource Worker 10/23/20 11/23/20 Cristina Wood Financial Resource Worker 02/09/21 02/09/21 Diaan Desir, [facility] [address] [place], [place] [address] Pharmacist Pharmacist 04/17/21 Rain Galaviz PA-C [address] [place] [address] [place] [address] Physician Repair Specialist Dermatology 04/28/21 Summer Lara MD [address] [place] [address] [phone] Assigned OBGYN Provider 05/10/2105/23 Summer Lara MD [address] [place] [address] 918324 Assigned OBGYN Provider 05/31/21 2 Summer Lara MD [address] [place] [address] Assigned OBGYN Provider 05/24/2105/30 Tavia Wyatt MD [address] [place] [address] Dermatology 07/14/21 Johnny Murillo MD [address] [place] [address] Assigned Musculoskeletal Provider 08/30/21 03/17/22 Erica Farrell APRN TAILOR WOMEN'S GARMENT ALTERATION [address] [place] [address] Nurse Practitioner Cardiovascular Disease 09/09/21 [facility] [address] [place], [place] [phone] Pharmacist Pharmacist 09/24/21 09/29/21 Tavia Wyatt MD Assigned Surgical Provider 11/29/21 05/07/22 [facility] [address] [place] [address] Assigned MTM Pharmacist 01/02/22 Rich Barrett MD [address] 289[address] Physician Ophthalmology 01/21/22 Neil Kent MD [address] [place] [address] 997345 Dermatology 02/24/22 Roney Story DPM [address] [facility] [address] [place] [address] Assigned Musculoskeletal Provider 03/20/22 08/13/22 Erica Farrell APRN TAILOR WOMEN'S GARMENT ALTERATION 1700 [place] [address] Assigned Heart and Vascular Provider 04/03/22 04/16/22 Diana Desir, [facility] 3033 [place], [place] 944646 Assigned MTM Pharmacist 04/07/22 Jelena David OD [address] [place] [address] [place] [address] Assigned Surgical Provider 05/08/22 10/08/22 Galo Burrell MD Assigned Heart and Vascular Provider 04/17/22 06/11/22 Livan Sharif MD [address], [address] [place] [address] Cardiovascular Disease 05/14/22 Livan Sharif MD [address], [address] [address] [place] [address] Assigned Heart and Vascular Provider 06/12/22 07/23/22 Catherine Cm MD [address] [address] [place] [address] Cardiovascular Disease 07/21/22 JeremíasValery damon PA-C 909 [place] [address] Physician Repair Specialist Dermatology 07/21/22 Catherine Cm MD [address] [facility] [address] [place] [address] Assigned Heart and Vascular Provider 07/24/22 11/05/22 Johnny Murillo MD [facility] [address] 513[address] Assigned Musculoskeletal Provider 08/14/22 10/08/22 Brea Quinn APRN TAILOR WOMEN'S GARMENT ALTERATION [address] [place] [address] 019135 Nurse Practitioner Dermatology 09/21/22 Brea Quinn APRN TAILOR WOMEN'S GARMENT ALTERATION [address] [place] [address] [place] 355162 Assigned Surgical Provider 10/09/22 [place] [address] [place] [address] 421467 Assigned Musculoskeletal Provider 10/09/22 Livan Sharif MD [address], [address] [place] [address]85 Assigned Heart and Vascular Provider 11/06/22 11/12/22 Catherine Cm MD [address] [place] [address] Assigned Heart and Vascular Provider 11/13/22 05/27/23 Sydnie Martinez, VJ Personal Advocate & Liaison (PAL) Family Medicine 03/28/23 07/31/23 Alfonso Renteria MD [address] [facility] [address] 200 [place] [address] Assigned Neuroscience Provider 04/02/23 Cheng Todd PA-C [address] [place], [place] [phone] Assigned PCP 04/30/23 07/15/23 Radha Lomeli APRN TAILOR WOMEN'S GARMENT ALTERATION 6405 [facility] [address] [place] [address] Assigned Heart and Vascular Provider 05/28/23 Jelena David OD [address] [facility] [address] Ophthalmology 06/15/23 Pao Joseph, VJ Personal Advocate & Liaison (PAL) Nurse 08/01/23 Esha Grimm PA-C [address] [place] [address]-824283 Assigned PCP 07/16/23 Valery Veronica PA-C [address] [place] [address] Physician Repair Specialist Dermatology 09/19/23 Rey Tay MD 909 [place] [address] Gastroenterology 09/20/23 Rocky Zepeda DO [address] [place] [address] Physician Gastroenterology 09/20/23 Philip Dumont MD [address] [place] [address] Physician Ophthalmology 09/22/23 documented as of this encounter
--- OUTSIDE RECORDS SUMMARY | 2023-10-28 16:48 | XMS_ITS | Encounter Summary ---
Author Name Unknown Organization [facility] Address [address] [place] [address] Care Team Providers Care Asphalt Coater Name Role Phone Lita Oseguera Unavailable Unavailable Marija Edgar APRN MANAGER MECHANICAL MAINTENANCE Primary Care Provider Chan[facility] AIR SHOVEL OPERATOR CNM Unavailab le Kyara De La Fuente RN Unavailable [phone] Marija Edgar APRN MANAGER MECHANICAL MAINTENANCE Unavailable Unavail able Mynor Broussard MD Unavailable [phone] Keisha Dotson MD Unavailable Mary Mejia Unavailable Unavailable Stacey Briones MAPPING ANALYST Unavailable Lesley Moody CHW Unavailable [phone] Mary Mejia Unavailable Unavailable Lita Oseguera Unavailable Unavailable Galo Burrell MD Unavailable Unavailable Cristina Wood Unavailable Lesley Moody CHW Unavailable Meredith Bedoya Unavailable Unavailable Cristina Wood Unavailable Diana Desir [facility] Unavailable [phone] Rain Galaviz PA-C Unavailable [phone] Summer Lara MD Unavailable [phone] Summer Lara MD Unavailable [phone] Summer Lara MD Unavailable + [phone] Tavia Wyatt MD Unavailable Unavailable Johnny Murillo MD Unavailable +1- Erica Farrell AIR SHOVEL OPERATOR MANAGER MECHANICAL MAINTENANCE Unavailable + VikasTeresita RPH Unavailable Tavia Wyatt MD Unavailable Unavailable Diana Desir [facility] Unavailable [phone] Rich Barrett MD Unavailable [phone] Neil Kent MD Unavailable Roney Story DPM Unavailable [phone] Erica Farrell AIR SHOVEL OPERATOR MANAGER MECHANICAL MAINTENANCE Unavailable + Diana Desir [facility] Unavailable [phone] Jelena David OD Unavailable [phone] Galo Burrell MD Unavailable Unavailable Livan Sharif MD Unavailable + Livan Sharif MD Unavailable + Catherine Cm MD Unavailable + Valery Veronica PA-C Unavailable + [phone] Catherine Cm MD Unavailable + Johnny Murillo MD Unavailable +1- Brea Quinn APRN MANAGER MECHANICAL MAINTENANCE Unavailable [phone] Brea Quinn AIR SHOVEL OPERATOR MANAGER MECHANICAL MAINTENANCE Unavailable [phone] Jose Francisco Johnson MD Unavailable Livan Sharif MD Unavailable + Catherine Cm MD Unavailable + Sydnie Martinez RN Unavailable Unavailable Alfonso Renteria MD Unavailable [phone] Esha GrimmC Primary Care Provider [phone] Cheng ToddC Unavailable Radha Lomeli APRN MANAGER MECHANICAL MAINTENANCE Unavailable Jelena David OD Unavailable Pao Joseph RN Unavailable Unavailable Esha Grimm PA-C Unavailable Valery VeronicaC Unavailable [phone] Rey Tay MD Unavailable Rocky Zepeda DO Unavailable Philip Dumont MD Unavailable Encounter Details Date Type Department Care Team (Late st Contact Info) Description 07/10/2020 MyC Medical Advice [facility] [address] [place] [address] Mynor Broussard MD [address] [place] [address] Social History Tobacco Use Types [...] COVID-19? No / Unsure 06/24/2020 3:01 PM FASHION MODEL documented as of this encounter Plan of Treatment Upcoming Encounters Date Type Department Care Team (Late st Contact Info) Description 11/01/2023 8:00 AM CDT Appointment [facility] Imaging [address] [place] [address] Lauren Claudio PA-C [address] [place], [place] [phone] 11/03/2023 8:00 AM CDT Office Visit [address] [phone] Valery Veronica PA-C 909 [place] [address] 11/29/2023 8:00 AM CDT Office Visit [facility] [address] [place] [phone] Esha Grimm PA-C [address] [place] [phone] 12/19/2023 11:30 AM CDT Hospital Encounter [address] [phone] Rocky Zepeda DO 500 [place], [place] [address]22815 12/19/2023 11:30 AM CDT - 12/19/2023 12:00 PM CDT Surgery [address] [phone] Rocky Zepeda DO 500 [place], [place] [address] Esophagoscopy, gastroscopy, duodenoscopy (EGD), combined 01/02/2024 8:00 AM CDT Office [facility] [address] [place] [address] Lauren Claudio PA-C [address] [place] [address] Kelli Perez MD [address] [place] [address] Scheduled Procedures Name Priority Associated Diagnoses Date/Ti sc ESOPHAGOGASTRODUODENOSCOPY Eosinophilic esophagitis Esophageal dysphagia 12/19/2023 11:30 AM CDT documented as of this encounter Visit Diagnoses Not on filedocumented in this encounter Additional Health Concerns Infection Onset Date Last Indicated Resolved Time Rule Out COVID-19 07/30/2020 07/30/2020 07/30/2020 7:11 PM FASHION MODEL Rule Out COVID-19 08/30/2020 08/30/2020 08/30/2020 5:05 PM FASHION MODEL Rule Out COVID-19 09/24/2020 09/24/2020 09/24/2020 9:24 AM CDT Rule Out COVID-19 11/05/2020 11/05/2020 11/06/2020 1:09 PM CDT Rule Out COVID-19 05/11/2021 05/11/2021 05/13/2021 10:18 AM CDT Rule Out COVID-19 07/13/2021 07/13/2021 07/14/2021 3:04 PM FASHION MODEL Rule Out COVID-19 07/18/2021 07/18/2021 07/20/2021 1:56 PM FASHION MODEL COVID-19 07/18/2021 07/18/2021 08/08/2021 11:3 9 PM FASHION MODEL Rule Out COVID-19 12/18/2021 12/18/2021 12/19/2021 11:34 AM CDT Rule Out COVID-19 02/24/2022 02/24/2022 02/25/2022 1:08 PM CDT Rule Out COVID-19 04/26/2022 04/26/2022 04/26/2022 6:47 AM CDT Rule Out COVID-19 05/17/2022 05/17/2022 05/17/2022 10:20 PM FASHION MODEL Rule Out COVID-19 06/09/2022 06/09/2022 06/09/2022 9:35 AM FASHION MODEL COVID-19 06/09/2022 06/09/2022 06/30/2022 11:4 1 PM FASHION MODEL Rule Out COVID-19 11/10/2022 11/10/2022 11/11/2022 12:17 PM CDT Rule Out COVID-19 03/07/2023 03/07/2023 03/07/2023 1:20 PM CDT Assessment Noted Time PHQ-9 Depression Total Score: 9 06/25/20 20 7:04 AM FASHION MODEL documented as of this encounter Care Teams Asphalt Coater Relationship Specialty Start Date End Date Marija Edgar APRN MANAGER MECHANICAL MAINTENANCE PCP - General Nurse Practitioner 04/30/20 04/14/23 Esha Grimm PA-C [address] [place] [phone] PCP - General Family Medicine 05/04/23 Lita Oseguera Personal Advocate & Liaison (PAL) 02/28/20 03/27/23 Chanelle Mccann APRN CNM [address] [place] [address] 200 [place], [place] [address] Assigned OBGYN Provider 05/02/2005/09 Kyara De La Fuente, RN Specialty Sweatband Flanger Neurology 06/04/20 03/05/21 Marija Edgar APRN MANAGER MECHANICAL MAINTENANCE Assigned PCP 06/08/20 04/29/23 Mynor Broussard MD 6363 [facility] 500 [place] [address] Assigned Surgical Provider 06/01/20 11/28/21 Keisha Dotson MD 909 [place] [address] Assigned Neuroscience Provider 06/04/20 04/01/23 Mary Mejia Financial Resource Worker 08/07/20 08/21/20 Stacey Briones, [facility] Lead Sweatband Flanger Primary Care - CC 08/11/2012/30 Lesley Moody, [facility] Community Health Worker 08/11/2010/01 Mary Mejia Financial Resource Worker 09/02/20 10/06/20 Lita Oseguera Personal Advocate & Liaison (PAL) Family Medicine 09/10/20 09/21/20 Galo Burrell MD Assigned Heart and Vascular Provider 10/05/20 04/02/22 Cristina Wood Financial Resource Worker 10/07/20 10/14/20 Lesley Moody, [facility] Community Health Worker 10/23/2012/30 Meredith Bedoya Financial Resource Worker 10/23/20 11/23/20 Cristina Wood Financial Resource Worker 02/09/21 02/09/21 Diana Desir, [facility] [address] [place] [address] Pharmacist Pharmacist 04/17/21 Rain Galaviz PA-C [address] [place] [address] ENMA KNUTSON [address] Physician Home Supervisor Dermatology 04/28/21 Summer Lara MD [address] [place] [address] Assigned OBGYN Provider 05/10/2105/23 Summer Lara MD [address] [place] [address] Assigned OBGYN Provider 05/31/21 Summer Lara MD [address] [place] [address] Assigned OBGYN Provider 05/24/2105/30 Tavia Wyatt MD [address] [place] [address] Dermatology 07/14/21 Johnny Murillo MD [address] [place] [address] Assigned Musculoskeletal Provider 08/30/21 03/17/22 Erica Farrell APRN MANAGER MECHANICAL MAINTENANCE [address] [facility] [address] [place], [place] [address] Nurse Practitioner Cardiovascular Disease 09/09/21 Teresita Bean [facility] [address] [place] [address] Pharmacist Pharmacist 09/24/21 09/29/21 Tavia Wyatt MD Assigned Surgical Provider 11/29/21 05/07/22 Diana Desir, [facility] [address] [place] [address] Assigned MTM Pharmacist 01/02/22 Rich Barrett MD [address] [address] Physician Ophthalmology 01/21/22 Neil Kent MD 500 [place], [place] 646415 Dermatology 02/24/22 Roney Story DPM [address] [facility] [address] [place], [place] 930647 Assigned Musculoskeletal Provider 03/20/22 08/13/22 Erica Farrell APRN MANAGER MECHANICAL MAINTENANCE 1700 [place] [address] Assigned Heart and Vascular Provider 04/03/22 04/16/22 Diana Desir, [facility] 3033 [place] [address] Assigned MTM Pharmacist 04/07/22 Jelena David OD [address] [place] [address] Assigned Surgical Provider 05/08/22 10/08/22 Galo Burrell MD Assigned Heart and Vascular Provider 04/17/22 06/11/22 Livan Sharif MD [address] [facility] [address] [place] [address] Cardiovascular Disease 05/14/22 Livan Sharif MD [address], [facility] [address] [place] [address] Assigned Heart and Vascular Provider 06/12/22 07/23/22 Catherine Cm MD [address] [facility] [address] [place] 129625 Cardiovascular Disease 07/21/22 Valery Veronica, PAUcheC [address] [place] [address] 499255 Physician Home Supervisor Dermatology 07/21/22 Catherine Cm MD [address] [facility]00 [place] 675985 Assigned Heart and Vascular Provider 07/24/22 11/05/22 Johnny Murillo MD [facility] [address] 063474 Assigned Musculoskeletal Provider 08/14/22 10/08/22 Brea Quinn APRN MANAGER MECHANICAL MAINTENANCE [address] [place] [address] 691645 Nurse Practitioner Dermatology 09/21/22 Brea Quinn APRN MANAGER MECHANICAL MAINTENANCE [address] [place] [address] ENMA DOE 894502 Assigned Surgical Provider 10/09/22 [place] [address] 156127 Assigned Musculoskeletal Provider 10/09/22 Livan Sharif MD [address], [facility] [address] [place], [place] 0439[address] Assigned Heart and Vascular Provider 11/06/22 11/12/22 Catherine Cm MD [address] [place] 7[address]295 Assigned Heart and Vascular Provider 11/13/22 05/27/23 Sydnie Martinez RN Personal Advocate & Liaison (PAL) Family Medicine 03/28/23 07/31/23 Alfonso Renteria MD 5775 [facility] 200 [place] [address] Assigned Neuroscience Provider 04/02/23 Cheng Todd PA-C [address] [place], [place] [phone] Assigned PCP 04/30/23 07/15/23 Radha Lomeli, ARLENE MANAGER MECHANICAL MAINTENANCE [address] [place] [address] Assigned Heart and Vascular Provider 05/28/23 Jelena David OD [address] [place] [address] Ophthalmology 06/15/23 Pao Joseph, VJ Personal Advocate & Liaison (PAL) Nurse 08/01/23 Esha Grimm PAUcheC [address] [place] [address]119883 Assigned PCP 07/16/23 Valery Veronica PA-C 909 [place], [place] 412225 Physician Home Supervisor Dermatology 09/19/23 Rey Tay MD [address] [place] [address] 525575 Gastroenterology 09/20/23 Rocky Zepeda DO [address] [place] [address] 360565 Physician Gastroenterology 09/20/23 Philip Dumont MD [address] [place] [address] Physician Ophthalmology 09/22/23 documented as of this encounter
--- OUTSIDE RECORDS SUMMARY | 2023-10-28 16:48 | XMS_ITS | Encounter Summary ---
Author Name Unknown Organization [facility] Address [address] [place] [address] Care Team Providers Care Senior Informatica Developer Name Role Phone Lita Oseguera Unavailable Unavailable Marija Edgar APRN VISUAL DISPLAY ASSOCIATE Primary Care Provider Chanelle Gutierrezdiv[facility] FLATWORK SUPERVISOR CNM Unavailab le Kyara DeL a Fuente RN Unavailable [phone] Marija Edgar APRN VISUAL DISPLAY ASSOCIATE Unavailable Unavail able Mynor Broussard MD Unavailable [phone] Keisha Dotson MD Unavailable Mary Mejia Unavailable Unavailable Stacey Briones BICYCLE TECHNICIAN Unavailable Lesley Moody CHW Unavailable [phone] Mary Mejia Unavailable Unavailable Lita Oseguera Unavailable Unavailable Galo Burrell MD Unavailable Unavailable Cristina Wood Unavailable Lesley Moody CHW Unavailable Meredith Bedoya Unavailable Unavailable Cristina Wood Unavailable Diana Desir [facility] Unavailable [phone] Rain Galaviz PA-C Unavailable Summer Lara MD Unavailable Summer Lara MD Unavailable +[phone] Summer Lara MD Unavailable + [phone] Tavia Wyatt MD Unavailable Unavailable Johnny Murillo MD Unavailable +1- Erica Farrell FLATWORK SUPERVISOR VISUAL DISPLAY ASSOCIATE Unavailable + VikasTeresita RPH Unavailable Tavia Wyatt MD Unavailable Unavailable Diana Desir [facility] Unavailable [phone] Rich Barrett MD Unavailable [phone] Neil Kent MD Unavailable Roney Story DPM Unavailable [phone] Erica Farrell FLATWORK SUPERVISOR VISUAL DISPLAY ASSOCIATE Unavailable + Diana Desir [facility] Unavailable [phone] Jelena David OD Unavailable [phone] Galo Burrell MD Unavailable Unavailable Livan Sharif MD Unavailable + Livan Sharif MD Unavailable + Catherine Cm MD Unavailable + Valery Veronica PA-C Unavailable + [phone] Catherine Cm MD Unavailable + Johnny Murillo MD Unavailable +1- Brea Quinn APRN VISUAL DISPLAY ASSOCIATE Unavailable [phone] Brea Quinn FLATWORK SUPERVISOR VISUAL DISPLAY ASSOCIATE Unavailable [phone] Jose Francisco Johnson MD Unavailable Livan Sharif MD Unavailable + Catherine Cm MD Unavailable + Sydnie Martinez RN Unavailable Unavailable Alfonso Renteria MD Unavailable [phone] Esha Grimm PA-C Primary Care Provider Cheng ToddC Unavailable Radha Lomeli APRN VISUAL DISPLAY ASSOCIATE Unavailable [phone] Jelena David OD Unavailable Pao Joseph RN Unavailable Unavailable Esha Grimm PA-C Unavailable [phone] Valery Veronica PA-C Unavailable Rey Tay MD Unavailable Rocky Zepeda DO Unavailable Philip Dumont MD Unavailable [phone] Encounter Details Date Type Department Care Team (Late st Contact Info) Description 08/07/2020 [facility] Medical Advice [facility] Care Coordination [address] [place] [phone] Lesley Moody, [facility] Social History Tobacco Use Types Packs/Day [...] you attend chur ch or protestant services? More than 4 times per year [...] Answer Date Recorded PHQ-2 Score 3 [facility] [...] a senior living (including now)? No 08/11/2020 Education Answer Date [...] COVID-19? No / Unsure 08/06/2020 2:03 PM SORTER PRICER documented as of this encounter Plan of Treatment Upcoming Encounters Date Type Department Care Team (Late st Contact Info) Description 11/01/2023 8:00 AM CDT Appointment [facility] Imaging [address] [place] [phone] Lauren Claudio, PABaldo [address] [place] [address] 11/03/2023 8:00 AM CDT Office Visit [address] [address] Valery Veronica PA-C [address] [place] [address] 11/29/2023 8:00 AM CDT Office Visit [address] [phone] Esha Grimm PA-C [address] [place] [phone] 12/19/2023 11:30 AM CDT Hospital Encounter [address] [phone] Rocky Zepeda DO 500 [place], [place] [address]525 12/19/2023 11:30 AM CDT - 12/19/2023 12:00 PM CDT Surgery [address] [phone] Rocky Zepeda DO 500 [place], [place] 4987[address] Esophagoscopy, gastroscopy, duodenoscopy (EGD), combined 01/02/2024 8:00 AM CDT Office Visit [facility] [address] [phone] Lauren Claudio PA-C [address] [place] [address] Kelli Perez MD [address] [place] [address] 419384 Scheduled Procedures Name Priority Associated Diagnoses Date/Ti id ESOPHAGOGASTRODUODENOSCOPY Eosinophilic esophagitis Esophageal dysphagia 12/19/2023 11:30 AM CDT documented as of this encounter Visit Diagnoses Not on filedocumented in this encounter Additional Health Concerns Infection Onset Date Last Indicated Resolved Time Rule Out COVID-19 08/30/2020 08/30/2020 08/30/2020 5:05 PM SORTER PRICER Rule Out COVID-19 09/24/2020 09/24/2020 09/24/2020 9:24 AM CDT Rule Out COVID-19 11/05/2020 11/05/2020 11/06/2020 1:09 PM CDT Rule Out COVID-19 05/11/2021 05/11/2021 05/13/2021 10:18 AM CDT Rule Out COVID-19 07/13/2021 07/13/2021 07/14/2021 3:04 PM SORTER PRICER Rule Out COVID-19 07/18/2021 07/18/2021 07/20/2021 1:56 PM SORTER PRICER COVID-19 07/18/2021 07/18/2021 08/08/2021 11:3 9 PM SORTER PRICER Rule Out COVID-19 12/18/2021 12/18/2021 12/19/2021 11:34 AM CDT Rule Out COVID-19 02/24/2022 02/24/2022 02/25/2022 1:08 PM CDT Rule Out COVID-19 04/26/2022 04/26/2022 04/26/2022 6:47 AM CDT Rule Out COVID-19 05/17/2022 05/17/2022 05/17/2022 10:20 PM SORTER PRICER Rule Out COVID-19 06/09/2022 06/09/2022 06/09/2022 9:35 AM SORTER PRICER COVID-19 06/09/2022 06/09/2022 06/30/2022 11:4 1 PM SORTER PRICER Rule Out COVID-19 11/10/2022 11/10/2022 11/11/2022 12:17 PM CDT Rule Out COVID-19 03/07/2023 03/07/2023 03/07/2023 1:20 PM CDT Assessment Noted Time PHQ-9 Depression Total Score: 9 12/16/20 20 7:04 AM SORTER PRICER documented as of this encounter Care Teams Senior Informatica Developer Relationship Specialty Start Date End Date Marija Edgar APRN VISUAL DISPLAY ASSOCIATE PCP - General Nurse Practitioner 04/30/20 04/14/23 Esha Grimm PA-C [address] [place] [phone] PCP - General Family Medicine 05/04/23 Lita Oseguera Personal Advocate & Liaison (PAL) 02/28/20 03/27/23 Chanelle Mccann APRN CNM [address] [place] [address] 200 [place] [address] Assigned OBGYN Provider 05/02/2005/09 Kyara De La Fuente, RN Specialty Industrial Fabric Cutter Neurology 06/04/20 03/05/21 Marija Edgar APRN VISUAL DISPLAY ASSOCIATE Assigned PCP 06/08/20 04/29/23 Mynor Broussard MD 6363 [facility] 500 [place] [address] Assigned Surgical Provider 06/01/20 11/28/21 Keisha Dotson MD 909 [place] [address] Assigned Neuroscience Provider 06/04/20 04/01/23 Mary Mejia Financial Resource Worker 08/07/20 08/21/20 Stacey Briones, BICYCLE TECHNICIAN Lead Industrial Fabric Cutter Primary Care - CC 08/11/2012/30 Lesley Moody, W Community Health Worker 08/11/2010/01 Mary Mejia Financial Resource Worker 09/02/20 10/06/20 Lita Oseguera Personal Advocate & Liaison (PAL) Family Medicine 09/10/20 09/21/20 Galo Burrell MD Assigned Heart and Vascular Provider 10/05/20 04/02/22 Cristina Wood Financial Resource Worker 10/07/20 10/14/20 Lesley Moody, [facility] Community Health Worker 10/23/2012/30 Meredith Bedoya Financial Resource Worker 10/23/20 11/23/20 Cristina Wood Financial Resource Worker 02/09/21 02/09/21 Diana Desir, [facility] [address] [place], [place] [address] Pharmacist Pharmacist 04/17/21 Rain Galaviz PA-C [address] [place] [address] [address] [place], [place] [phone] Physician Powder Hand Dermatology 04/28/21 Summer Lara MD [address] [place] [address] 372544 Assigned OBGYN Provider 05/10/2105/23 Summer Lara MD [address] [place] [address] 023484 Assigned OBGYN Provider 05/31/21 2 Summer Lara MD [address] [place] [address] Assigned OBGYN Provider 05/24/2105/30 Tavia Wyatt MD [address] [place] [address] Dermatology 07/14/21 Johnny Murillo MD [address] [place] [address] Assigned Musculoskeletal Provider 08/30/21 03/17/22 Erica Farrell, FLATWORK SUPERVISOR VISUAL DISPLAY ASSOCIATE [address] [place], [place] [address] Nurse Practitioner Cardiovascular Disease 09/09/21 Teresita Bean, [facility] [address] [place], [place] [phone] Pharmacist Pharmacist 09/24/21 09/29/21 Tavia Wyatt MD Assigned Surgical Provider 11/29/21 05/07/22 [facility] [address] [facility] [place] [address] Assigned MTM Pharmacist 01/02/22 Rich Barrett MD 516 [facility] 9[address] [place], [place] 15[address]85 Physician Ophthalmology 01/21/22 Neil Kent MD 500 [place], [place] [phone] Dermatology 02/24/22 Roney Story DPM 11411 [facility] [address] [place], [place] 990367 Assigned Musculoskeletal Provider 03/20/22 08/13/22 Erica Farrell APRN VISUAL DISPLAY ASSOCIATE 1700 [place] [address] Assigned Heart and Vascular Provider 04/03/22 04/16/22 Diana Desir, [facility] 3033 [place] [address] Assigned MTM Pharmacist 04/07/22 Jelena David OD [address] [facility] [place] [address] Assigned Surgical Provider 05/08/22 10/08/22 Galo Burrell MD Assigned Heart and Vascular Provider 04/17/22 06/11/22 Livan Sharif MD [address] [place] [address] Cardiovascular Disease 05/14/22 Livan Sharif MD [address] [place] [address] Assigned Heart and Vascular Provider 06/12/22 07/23/22 Catherine Cm MD [address] [place] 508915 Cardiovascular Disease 07/21/22 Valery Veronica, PAUcheC 909 [place] [address] Physician Powder Hand Dermatology 07/21/22 Catherine Cm MD [address] [facility] [address] [place] 29[address]65 Assigned Heart and Vascular Provider 07/24/22 11/05/22 Johnny Murillo MD [address] 294[address] Assigned Musculoskeletal Provider 08/14/22 10/08/22 Brea Quinn APRN VISUAL DISPLAY ASSOCIATE 500 [place], [place] [phone] Nurse Practitioner Dermatology 09/21/22 Brea Quinn APRN VISUAL DISPLAY ASSOCIATE 6401 [facility] 527762 Assigned Surgical Provider 10/09/22 [place] [address] 092897 Assigned Musculoskeletal Provider 10/09/22 Livan Sharif MD [address] [facility] [address] [place] [address] Assigned Heart and Vascular Provider 11/06/22 11/12/22 Catherine Cm MD [address] [facility] [address] [place] 791845 Assigned Heart and Vascular Provider 11/13/22 05/27/23 Sydnie Martinez RN Personal Advocate & Liaison (PAL) Family Medicine 03/28/23 07/31/23 Alfonso Renteria MD [address] [facility] [address] 200 [place] [address] Assigned Neuroscience Provider 04/02/23 Cheng Todd PA-C [address] [place], [place] [phone] Assigned PCP 04/30/23 07/15/23 Radha Lomeli APRN VISUAL DISPLAY ASSOCIATE [address] [place], [place] [address] Assigned Heart and Vascular Provider 05/28/23 Jelena David OD [address] [facility] [place] [address] Ophthalmology 06/15/23 Pao Joseph, VJ Personal Advocate & Liaison (PAL) Nurse 08/01/23 Esha Grimm PA-C [address] [place] [address]-16877283 Assigned PCP 07/16/23 Valery Veronica PA-C [address] [place] [address] 317175 Physician Powder Hand Dermatology 09/19/23 Rey Tay MD [address] [place] [address] 078645 Gastroenterology 09/20/23 Rocky Zepeda DO [address] [place] [address] 844185 Physician Gastroenterology 09/20/23 Philip Dumont MD [address] [place] [address] Physician Ophthalmology 09/22/23 documented as of this encounter
--- OUTSIDE RECORDS SUMMARY | 2023-10-28 16:48 | XMS_ITS | Encounter Summary ---
Author Name Unknown Organization [place] Address [address] [place] [address] Care Team Providers Care Bell Person Name Role Phone Lita Oseguera Unavailable Unavailable Marija Edgar APRN RADIATION ONCOLOGY THERAPIST Primary Care Provider [facility] E COMMERCE MANAGER CNM Unavailab le Kyara De La Fuente RN Unavailable [phone] Marija Edgar APRN RADIATION ONCOLOGY THERAPIST Unavailable Unavail able Mynor Broussard MD Unavailable [phone] Keisha Dotson MD Unavailable Mary Mejia Unavailable Unavailable Stacey Briones WARE FINISHER Unavailable Lesley Moody CHW Unavailable Mary Mejia Unavailable Unavailable Lita Oseguera Unavailable Unavailable Galo Burrell MD Unavailable Unavailable Cristina Wood Unavailable Lesley Moody CHW Unavailable [phone] Meredith Bedoya Unavailable Unavailable Cristina Wood Unavailable Diana Desir [facility] Unavailable Rain Galaviz PA-C Unavailable Summer Lara MD Unavailable [phone] Summer Lara MD Unavailable +[phone] Summer Lara MD Unavailable + [phone] Tavia Wyatt MD Unavailable Unavailable Johnny Murillo MD Unavailable +1- Erica Farrell E COMMERCE MANAGER RADIATION ONCOLOGY THERAPIST Unavailable + VikasTeresita RPH Unavailable Tavia Wyatt MD Unavailable Unavailable Diana Desir [facility] Unavailable [phone] Rich Barrett MD Unavailable +[phone] Neil Kent MD Unavailable Roney Story DPM Unavailable [phone] Erica Farrell E COMMERCE MANAGER RADIATION ONCOLOGY THERAPIST Unavailable + Diana Desir [facility] Unavailable [phone] Jelena David OD Unavailable [phone] aGlo Burrell MD Unavailable Unavailable Livan Sharif MD Unavailable + Livan Sharif MD Unavailable + Catherine Cm MD Unavailable + Valery Veronica PA-C Unavailable + [phone] Catherine Cm MD Unavailable + Johnny Murillo MD Unavailable +1- Brea Quinn APRN RADIATION ONCOLOGY THERAPIST Unavailable [phone] Brea Quinn E COMMERCE MANAGER RADIATION ONCOLOGY THERAPIST Unavailable [phone] Jose Francisco Johnson MD Unavailable Livan Sharif MD Unavailable + Catherine Cm MD Unavailable + Sydnie Martinez RN Unavailable Unavailable Alfonso Renteria MD Unavailable [phone] Esha GrimmC Primary Care Provider Cheng ToddC Unavailable Radha Lomeli APRN RADIATION ONCOLOGY THERAPIST Unavailable Jelena David OD Unavailable [phone] Pao Joseph RN Unavailable Unavailable Esha Grimm PA-C Unavailable [phone] Valery VeronicaC Unavailable [phone] Rey Tay MD Unavailable Rocky Zepeda DO Unavailable Philip Dumont MD Unavailable [phone] Encounter Details Date Type Department Care Team (Late st Contact Info) Description 08/01/2020 [facility] [place] [address] [address] Marija Edgar, ARLENE RADIATION ONCOLOGY THERAPIST Social History Tobacco Use Types Packs/Day Years [...] COVID-19? No / Unsure 07/30/2020 4:53 PM SHERIFF'S DETECTIVE documented as of this encounter Miscellaneous Notes * Telephone Encounter - Estephania Black RN - 08/01/2020 9:11 AM SHERIFF'S DETECTIVE Schedule patient for Zio Patch. Detailed message left on phone and through [employer]. Estephania Black, RN Flex IFF'S DETECTIVE * Telephone Encounter - Marija Edgar APRN CNP - 08/01/2020 8:46 AM SHERIFF'S DETECTIVE Please help patient schedule her zio patch. This order has been in place since 05/2020 and a new order was placed this week. IFF'S DETECTIVE documented in this encounter Plan of Treatment Upcoming Encounters Date Type Department Care Team (Late st Contact Info) Description 11/01/2023 8:00 AM CDT Appointment [facility] [address] [facility] [place] [address] Lauren Claudio PA-C [address] [place], [place] [phone] 11/03/2023 8:00 AM CDT Office Visit [address] [phone] Valery Veronica PA-C [address] [place] [address] 11/29/2023 8:00 AM CDT Office Visit [facility] [address] [place] [phone] Esha Grimm PA-C [address] [place] [phone] 12/19/2023 11:30 AM CDT Hospital Encounter [facility] [address] [facility] 5th [place] [phone] Rocky Zepeda, DO [address] [place] [address] 12/19/2023 11:30 AM CDT - 12/19/2023 12:00 PM CDT Surgery [facility] [address] [facility] [address] 5th [place] [phone] Rocky Zepeda, DO 500 [place] [address] Esophagoscopy, gastroscopy, duodenoscopy (EGD), combined 01/02/2024 8:00 AM CDT Office Visit [facility] [address] [place] [phone] Lauren Claudio PA-C [phone] [place] [address] Kelli Perez MD [address] [place] [address] [phone] Scheduled Procedures Name Priority Associated Diagnoses Date/Ti ks ESOPHAGOGASTRODUODENOSCOPY Eosinophilic esophagitis Esophageal dysphagia 12/19/2023 11:30 AM CDT documented as of this encounter Visit Diagnoses Not on filedocumented in this encounter Additional Health Concerns Infection Onset Date Last Indicated Resolved Time Rule Out COVID-19 08/30/2020 08/30/2020 08/30/2020 5:05 PM SHERIFF'S DETECTIVE Rule Out COVID-19 09/24/2020 09/24/2020 09/24/2020 9:24 AM CDT Rule Out COVID-19 11/05/2020 11/05/2020 11/06/2020 1:09 PM CDT Rule Out COVID-19 05/11/2021 05/11/2021 05/13/2021 10:18 AM CDT Rule Out COVID-19 07/13/2021 07/13/2021 07/14/2021 3:04 PM SHERIFF'S DETECTIVE Rule Out COVID-19 07/18/2021 07/18/2021 07/20/2021 1:56 PM SHERIFF'S DETECTIVE COVID-19 07/18/2021 07/18/2021 08/08/2021 11:3 9 PM SHERIFF'S DETECTIVE Rule Out COVID-19 12/18/2021 12/18/2021 12/19/2021 11:34 AM CDT Rule Out COVID-19 02/24/2022 02/24/2022 02/25/2022 1:08 PM CDT Rule Out COVID-19 04/26/2022 04/26/2022 04/26/2022 6:47 AM CDT Rule Out COVID-19 05/17/2022 05/17/2022 05/17/2022 10:20 PM SHERIFF'S DETECTIVE Rule Out COVID-19 06/09/2022 06/09/2022 06/09/2022 9:35 AM SHERIFF'S DETECTIVE COVID-19 06/09/2022 06/09/2022 06/30/2022 11:4 1 PM SHERIFF'S DETECTIVE Rule Out COVID-19 11/10/2022 11/10/2022 11/11/2022 12:17 PM CDT Rule Out COVID-19 03/07/2023 03/07/2023 03/07/2023 1:20 PM CDT Assessment Noted Time PHQ-9 Depression Total Score: 9 06/25/20 20 7:04 AM SHERIFF'S DETECTIVE documented as of this encounter Care Teams Bell Person Relationship Specialty Start Date End Date Marija Edgar APRN RADIATION ONCOLOGY THERAPIST PCP - General Nurse Practitioner 04/30/20 04/14/23 Esha Grimm PA-C [address] [place] [address] PCP - General Family Medicine 05/04/23 Lita Oseguera Personal Advocate & Liaison (PAL) 02/28/20 03/27/23 Chanelle Mccann APRN CNM [address] [address] Assigned OBGYN Provider 05/02/2005/09 Kyara De La Fuente, RN Specialty Excellence Specialist Neurology 06/04/20 03/05/21 Marija Edgar APRN RADIATION ONCOLOGY THERAPIST Assigned PCP 06/08/20 04/29/23 Mynor Broussard MD [address] [phone] Assigned Surgical Provider 06/01/20 11/28/21 Keisha Dotson MD 9 [place], [place] [address]175 Assigned Neuroscience Provider 06/04/20 04/01/23 Mary Mejia Financial Resource Worker 08/07/20 08/21/20 Stacey Briones, [facility] Lead Excellence Specialist Primary Care - CC 08/11/2012/30 Lesley Moody, [facility] Community Health Worker 08/11/2010/01 Mary Mejia Financial Resource Worker 09/02/20 10/06/20 Lita Oseguera Personal Advocate & Liaison (PAL) Family Medicine 09/10/20 09/21/20 Galo Burrell MD Assigned Heart and Vascular Provider 10/05/20 04/02/22 Cristina Wood Financial Resource Worker 10/07/20 10/14/20 Lesley Moody, [facility] Community Health Worker 10/23/2012/30 Meredith Bedoya Financial Resource Worker 10/23/20 11/23/20 Cristina Wood Financial Resource Worker 02/09/21 02/09/21 Diana Desir, [facility] [address] [place] [address] Pharmacist Pharmacist 04/17/21 Rain Galaviz PA-C [address] [place] [address] [place] [address] Physician Kindergarten Teacher Assistant Dermatology 04/28/21 Summer Lara MD [address] [place], [place] 6[address] Assigned OBGYN Provider 05/10/2105/23 Summer Lara MD [address] [place] [address] Assigned OBGYN Provider 05/31/21 Summer Lara MD [address] [facility] [address] [place], [place] 22[address] Assigned OBGYN Provider 05/24/2105/30 Tavia Wyatt MD 606 [facility] [place] [address] Dermatology 07/14/21 Johnny Murillo MD [address] [place] [address] Assigned Musculoskeletal Provider 08/30/21 03/17/22 Erica Farrell APRN RADIATION ONCOLOGY THERAPIST [address] [facility] [address] [place] [address] Nurse Practitioner Cardiovascular Disease 09/09/21 Teresita Bean, [facility] [address] [facility] [place] [address] Pharmacist Pharmacist 09/24/21 09/29/21 Tavia Wyatt MD Assigned Surgical Provider 11/29/21 05/07/22 Diana Desir, [facility] [address] [place] [address] Assigned MTM Pharmacist 01/02/22 Rich Barrett MD [address] [phone] Physician Ophthalmology 01/21/22 Neil Kent MD 500 [place], [place] 863655 Dermatology 02/24/22 Roney Story DPM 205[address] [facility] [address] [place], [place] [address] Assigned Musculoskeletal Provider 03/20/22 08/13/22 Erica Farrell APRN RADIATION ONCOLOGY THERAPIST 1700 [place] [address] Assigned Heart and Vascular Provider 04/03/22 04/16/22 Diana Desir, [facility] 30[address] [place] [address] Assigned MTM Pharmacist 04/07/22 Jelena David [place] [address] [facility] [place] [address] Assigned Surgical Provider 05/08/22 10/08/22 Galo Burrell MD Assigned Heart and Vascular Provider 04/17/22 06/11/22 Livan Sharif MD [address], [address] [place] [address] Cardiovascular Disease 05/14/22 Livan Sharif MD [address], [address] [place] [address] Assigned Heart and Vascular Provider 06/12/22 07/23/22 Catherine Cm MD [address] [place], [place] 9[address] Cardiovascular Disease 07/21/22 Valery Veronica, PA-C [address] [place] [address] [phone] Physician Kindergarten Teacher Assistant Dermatology 07/21/22 Catherine Cm MD [address] [place], [place] 187255 Assigned Heart and Vascular Provider 07/24/22 11/05/22 Johnny Murillo MD [facility] [address] 303114 Assigned Musculoskeletal Provider 08/14/22 10/08/22 Brea Quinn APRN RADIATION ONCOLOGY THERAPIST [address] [place] [address] 333175 Nurse Practitioner Dermatology 09/21/22 Brea Quinn APRN RADIATION ONCOLOGY THERAPIST [address] [facility] [place] [address] Assigned Surgical Provider 10/09/22 [place] [address] [facility] [address] [place] [address] Assigned Musculoskeletal Provider 10/09/22 Livan Sharif MD [address], [facility] [address] [place], [place] 127525 Assigned Heart and Vascular Provider 11/06/22 11/12/22 Catherine Cm MD [address] [place] [address] Assigned Heart and Vascular Provider 11/13/22 05/27/23 Sydnie Martinez, VJ Personal Advocate & Liaison (PAL) Family Medicine 03/28/23 07/31/23 Alfonso Renteria MD 5775 [facility] 200 [place] [address] Assigned Neuroscience Provider 04/02/23 Cheng Todd PA-C [address] [place] [address] Assigned PCP 04/30/23 07/15/23 Radha Lomeli APRN RADIATION ONCOLOGY THERAPIST [address] [place] [address] Assigned Heart and Vascular Provider 05/28/23 Jelena David OD [address] [facility] [place] [address] Ophthalmology 06/15/23 Pao Joseph, RN Personal Advocate & Liaison (PAL) Nurse 08/01/23 Esha Grimm PA-C [address] [place] [address] Assigned PCP 07/16/23 Valery Veronica PA-C [address] [place] [address] Physician Kindergarten Teacher Assistant Dermatology 09/19/23 Rey Tay MD [address] [place] [address]495 Gastroenterology 09/20/23 Rocky Zepeda DO [address] [place] [address] 804485 Physician Gastroenterology 09/20/23 Philip Dumont MD [address] [place] [address] 626195 Physician Ophthalmology 09/22/23 documented as of this encounter
--- OUTSIDE RECORDS SUMMARY | 2023-10-28 16:48 | XMS_ITS | Encounter Summary ---
Author Name Unknown Organization [facility] Address [address] [place] [address] Care Team Providers Care Jewel Hole Rough Opener Name Role Phone Lita Oseguera Unavailable Unavailable Marija Edgar APRN WEARING APPAREL ASSEMBLER Primary Care Provider Chanelle [facility] GRADE FOREMAN CNM Unavailab le Kyara De La Fuente RN Unavailable [phone] Marija Edgar APRN WEARING APPAREL ASSEMBLER Unavailable Unavail able Mynor Broussard MD Unavailable [phone] Keisha Dotson MD Unavailable Mary Mejia Unavailable Unavailable Stacey Briones DEPUTY GRAND JURY Unavailable Lesley Moody CHW Unavailable Mary Mejia Unavailable Unavailable Lita Oseguera Unavailable Unavailable Galo Burrell MD Unavailable Unavailable Cristina Wood Unavailable Lesley Moody CHW Unavailable Meredith Bedoya Unavailable Unavailable Cristina Wood Unavailable Diana Desir [facility] Unavailable [phone] Rain Galaviz PA-C Unavailable Summer Lara MD Unavailable [phone] Summer Lara MD Unavailable +[phone] Summer Lara MD Unavailable + [phone] Tavia Wyatt MD Unavailable Unavailable Johnny Murillo MD Unavailable +1- Erica Farrell GRADE FOREMAN WEARING APPAREL ASSEMBLER Unavailable + VikasTeresita RPH Unavailable Tavia Wyatt MD Unavailable Unavailable Diana Desir [facility] Unavailable [phone] Rich Barrett MD Unavailable [phone] Neil Kent MD Unavailable Roney Story DPM Unavailable [phone] Erica Farrell GRADE FOREMAN WEARING APPAREL ASSEMBLER Unavailable + Diana Desir [facility] Unavailable [phone] Jelena David OD Unavailable [phone] Galo Burrell MD Unavailable Unavailable Livan Sharif MD Unavailable + Livan Sharif MD Unavailable + Catherine Cm MD Unavailable + Valery Veronica PA-C Unavailable + [phone] Catherine Cm MD Unavailable + Johnny Murillo MD Unavailable +1- Brea Quinn APRN WEARING APPAREL ASSEMBLER Unavailable [phone] Brea Quinn GRADE FOREMAN WEARING APPAREL ASSEMBLER Unavailable [phone] Jose Francisco Johnson MD Unavailable Livan Sharif MD Unavailable + Catherine Cm MD Unavailable + Sydnie Martinez RN Unavailable Unavailable Alfonso Renteria MD Unavailable [phone] Esha GrimmC Primary Care Provider Cheng ToddC Unavailable Radha Lomeli APRN, CNP Unavailable Jelena David OD Unavailable Pao Joseph RN Unavailable Unavailable Esha Grimm PA-C Unavailable [phone] Valery VeronicaC Unavailable [phone] Rey Tay MD Unavailable Duane Rockyanne STEVENS Unavailable Philip Dumont MD Unavailable [phone] Encounter Details Date Type Department Care Team (Latest Contact Info) Description 07/29/2020 [facility] Medical Advice [address] [phone] Marija Edgar APRN CNP Palpitations (Primary Dx) [...] COVID-19? No / Unsure 07/30/2020 4:53 PM SAUSAGE WRAPPER documented as of this encounter Miscellaneous Notes * Telephone Encounter - Marija Edgar APRN WEARING APPAREL ASSEMBLER - 07/30/2020 10:21 AM SAUSAGE WRAPPER Responded via MyChart Marija Edgar APRN WEARING APPAREL ASSEMBLER on 07/30/2020 at 10:28 AM AGE WRAPPER documented in this encounter Plan of Treatment Upcoming Encounters Date Type Department Care Team (Late st Contact Info) Description 11/01/2023 8:00 AM CDT Appointment [facility] [address] [place] [address] Lauren Claudio PA-C [address] [place], [place] [phone] 11/03/2023 8:00 AM CDT Office Visit [address] [phone] Valery Veronica PA-C [address] [place] [address] 11/29/2023 8:00 AM CDT Office Visit [facility] [address] [place] [phone] Esha Grimm PA-C [address] [place] [phone] 12/19/2023 11:30 AM CDT Hospital Encounter [address] [phone] Rocky Zepeda DO [address] [place] [address] 12/19/2023 11:30 AM CDT - 12/19/2023 12:00 PM CDT Surgery [address] [phone] Rocky Zepeda, DO 500 [place], [place] 35[address] Esophagoscopy, gastroscopy, duodenoscopy (EGD), combined 01/02/2024 8:00 AM CDT Office Visit [facility] [address] [place] [address] Lauren Claudio PA-C [address] [place] [address] Kelli Perez MD [address] [place] [address] Scheduled Procedures Name Priority Associated Diagnoses Date/Ti dc ESOPHAGOGASTRODUODENOSCOPY Eosinophilic esophagitis Esophageal dysphagia 12/19/2023 11:30 AM CDT documented as of this encounter Visit Diagnoses Diagnosis Palpitations- Primary Eosinophilic esophagitis Esophageal dysphagia Dysphagia, pharyngoesophageal phase documented in this encounter Additional Health Concerns Infection Onset Date Last Indicated Resolved Time Rule Out COVID-19 07/30/2020 07/30/2020 07/30/2020 7:11 PM SAUSAGE WRAPPER Rule Out COVID-19 08/30/2020 08/30/2020 08/30/2020 5:05 PM SAUSAGE WRAPPER Rule Out COVID-19 09/24/2020 09/24/2020 09/24/2020 9:24 AM CDT Rule Out COVID-19 11/05/2020 11/05/2020 11/06/2020 1:09 PM CDT Rule Out COVID-19 05/11/2021 05/11/2021 05/13/2021 10:18 AM CDT Rule Out COVID-19 07/13/2021 07/13/2021 07/14/2021 3:04 PM SAUSAGE WRAPPER Rule Out COVID-19 07/18/2021 07/18/2021 07/20/2021 1:56 PM SAUSAGE WRAPPER COVID-19 07/18/2021 07/18/2021 08/08/2021 11:3 9 PM SAUSAGE WRAPPER Rule Out COVID-19 12/18/2021 12/18/2021 12/19/2021 11:34 AM CDT Rule Out COVID-19 02/24/2022 02/24/2022 02/25/2022 1:08 PM CDT Rule Out COVID-19 04/26/2022 04/26/2022 04/26/2022 6:47 AM CDT Rule Out COVID-19 05/17/2022 05/17/2022 05/17/2022 10:20 PM SAUSAGE WRAPPER Rule Out COVID-19 06/09/2022 06/09/2022 06/09/2022 9:35 AM SAUSAGE WRAPPER COVID-19 06/09/2022 06/09/2022 06/30/2022 11:4 1 PM SAUSAGE WRAPPER Rule Out COVID-19 11/10/2022 11/10/2022 11/11/2022 12:17 PM CDT Rule Out COVID-19 03/07/2023 03/07/2023 03/07/2023 1:20 PM CDT Assessment Noted Time PHQ-9 Depression Total Score: 9 06/25/20 20 7:04 AM SAUSAGE WRAPPER documented as of this encounter Care Teams Jewel Hole Rough Opener Relationship Specialty Start Date End Date Marija Edgar APRN WEARING APPAREL ASSEMBLER PCP - General Nurse Practitioner 04/30/20 04/14/23 Esha Grimm PAUcheC [address] [place] [phone] PCP - General Family Medicine 05/04/23 Lita Oseguera Personal Advocate & Liaison (PAL) 02/28/20 03/27/23 Chanelle Mccann APRN CNM [address] [place] [address] Assigned OBGYN Provider 05/02/2005/09 Kyara De La Fuente, VJ Specialty Engineering Drafter Neurology 06/04/20 03/05/21 Marija Edgar APRN WEARING APPAREL ASSEMBLER Assigned PCP 06/08/20 04/29/23 Mynor Broussard MD [address] [address] Assigned Surgical Provider 06/01/20 11/28/21 Keisha Dotson MD 909 [place], [place] [address] Assigned Neuroscience Provider 06/04/20 04/01/23 Mary Mejia Financial Resource Worker 08/07/20 08/21/20 Stacey Briones, [facility] Lead Engineering Drafter Primary Care - CC 08/11/2012/30 Lesley Moody, [facility] Community Health Worker 08/11/2010/01 Mary Mejia Financial Resource Worker 09/02/20 10/06/20 Lita Oseguera Personal Advocate & Liaison (PAL) Family Medicine 09/10/20 09/21/20 Galo Burrell MD Assigned Heart and Vascular Provider 10/05/20 04/02/22 Cristina Wood Financial Resource Worker 10/07/20 10/14/20 Lesley Moody, [facility] Community Health Worker 10/23/2012/30 Meredith Bedoya Financial Resource Worker 10/23/20 11/23/20 Cristina Wood Financial Resource Worker 02/09/21 02/09/21 Diana Desir, [facility] [address] [place] [address] Pharmacist Pharmacist 04/17/21 Rain Galaviz PA-C [address] [place] [address] [address] [place] [address] Physician Venetian Blind Installer Dermatology 04/28/21 Summer Lara MD [address] [place] [address] Assigned OBGYN Provider 05/10/2105/23 Summer Lara MD [address] [place] [address] Assigned OBGYN Provider 05/31/21 2 Summer Lara MD [address] [place] [address] Assigned OBGYN Provider 05/24/2105/30 Tavia Wyatt MD [address] [place] [address] Dermatology 07/14/21 Johnny Murillo MD [address] [facility] [address] [place] [address] Assigned Musculoskeletal Provider 08/30/21 03/17/22 Erica Farrell APRN WEARING APPAREL ASSEMBLER [address] [facility] [address] [place] [address] Nurse Practitioner Cardiovascular Disease 09/09/21 Teresita Bean, [facility] [address] [place] [address] Pharmacist Pharmacist 09/24/21 09/29/21 Tavia Wyatt MD Assigned Surgical Provider 11/29/21 05/07/22 Diana Desir, [facility] [address] [place] [address] Assigned MTM Pharmacist 01/02/22 Rich Barrett MD [address] [place] [address] Physician Ophthalmology 01/21/22 Neil Kent MD 500 [place] [address] Dermatology 02/24/22 Roney Story DPM [address] [facility] [address] [place] [address] Assigned Musculoskeletal Provider 03/20/22 08/13/22 Erica Farrell APRN WEARING APPAREL ASSEMBLER [address] [place] [address] Assigned Heart and Vascular Provider 04/03/22 04/16/22 Diana Desir, [facility] [address] [place] [address] Assigned MTM Pharmacist 04/07/22 Jelena David OD [address] [place] [address] [place] [address] Assigned Surgical Provider 05/08/22 10/08/22 Galo Burrell MD Assigned Heart and Vascular Provider 04/17/22 06/11/22 Livan Sharif MD [address] [place] [address] Cardiovascular Disease 05/14/22 Livan Sharif MD [address], [place] [place] [address] Assigned Heart and Vascular Provider 06/12/22 07/23/22 Catherine Cm MD [address] [place] 0847[address] Cardiovascular Disease 07/21/22 Valery Veronica, PA-C [address] [place] [address] 852055 Physician Venetian Blind Installer Dermatology 07/21/22 Catherine Cm MD [address] [facility] [address] [place] 526395 Assigned Heart and Vascular Provider 07/24/22 11/05/22 Johnny Murillo MD [address] [place] [address] 079594 Assigned Musculoskeletal Provider 08/14/22 10/08/22 Brea Quinn APRN WEARING APPAREL ASSEMBLER [address] [place] [address] [phone] Nurse Practitioner Dermatology 09/21/22 Brea Quinn APRN WEARING APPAREL ASSEMBLER [address] [place] [address] [place] 255912 Assigned Surgical Provider 10/09/22 [place] [address] [facility] 300 [place] [address] Assigned Musculoskeletal Provider 10/09/22 Livan Sharif MD [address], [facility] [address] [place] [address]355 Assigned Heart and Vascular Provider 11/06/22 11/12/22 Catherine Cm MD [address] [place] 876465 Assigned Heart and Vascular Provider 11/13/22 05/27/23 Sydnie Martinez RN Personal Advocate & Liaison (PAL) Family Medicine 03/28/23 07/31/23 Alfonso Renteria MD 5775 [facility] 200 [place], [place] 292806 Assigned Neuroscience Provider 04/02/23 Cheng Todd PA-C [address] [place] [address] Assigned PCP 04/30/23 07/15/23 Radha Lomeli, GRADE FOREMAN WEARING APPAREL ASSEMBLER [address] [place] [address]59[address] Assigned Heart and Vascular Provider 05/28/23 Jelena David OD [address] [facility] [place] [address] Ophthalmology 06/15/23 Pao Joseph, RN Personal Advocate & Liaison (PAL) Nurse 08/01/23 Esha Grimm PA-C [address] [place] [address] Assigned PCP 07/16/23 Valery Veronica PA-C 9 [place] [address] Physician Venetian Blind Installer Dermatology 09/19/23 Rey Tay MD [address] [place] [address] Gastroenterology 09/20/23 Rocky Zepeda DO [address] [place] [address] 451185 Physician Gastroenterology 09/20/23 Philip Dumont MD [address] [place] [address] 052095 Physician Ophthalmology 09/22/23 documented as of this encounter
[2023-10-28] MEDS: GI COCKTAIL (VISC LIDO/ANTACID) 30 ML PO (16:49)
--- OUTSIDE RECORDS SUMMARY | 2023-10-28 16:49 | XMS_ITS | Encounter Summary ---
Author Name Unknown Organization [facility] Address [address] [place] [address] Care Team Providers Care Supervisor Machine Workers Name Role Phone Lita Oseguera Unavailable Unavailable Rakesh Cid PA-C Unavailable [phone] Marija Edgar APRN RING STRIKER Primary Care Provider Chanelle Gutierrez PLANT SCIENCE PROFESSOR CNM Unavailab le Lesley Moody CHW Unavailable Kyara De La Fuente RN Unavailable [phone] Marija Edgar APRN RING STRIKER Unavailable Unavail able Mynor Broussard MD Unavailable [phone] Keisha Dotson MD Unavailable [phone] Mary Mejia Unavailable Unavailable Stacey Briones [employer] Unavailable [phone] Lesley Moody CHW Unavailable Mary Mejia Unavailable Unavailable Lita Oseguera Unavailable Unavailable Galo Burrell MD Unavailable Unavailable Cristina Wood Unavailable Lesley Moody CHW Unavailable [phone] Meredith Bedoya Unavailable Unavailable Cristina Wood Unavailable Diana Desir [facility] Unavailable [phone] Anastacia Rain Paredes PA-C Unavailable [phone] Summer Lara MD Unavailable +[phone] Summer Lara MD Unavailable +[phone] Summer Lara MD Unavailable [phone] Tavia Wyatt MD Unavailable Unavailable Johnny Murillo MD Unavailable +1- Erica Farrell PLANT SCIENCE PROFESSOR RING STRIKER Unavailable + VikasTeresita [facility] Unavailable Tavia Wyatt MD Unavailable Unavailable Desir Diana [place] [facility] Unavailable [phone] Rich Barrett MD Unavailable [phone] Neil Kent MD Unavailable Roney Story DPM Unavailable [phone] Erica Farrell PLANT SCIENCE PROFESSOR RING STRIKER Unavailable + Diana Desir [facility] Unavailable [phone] Jelena David OD Unavailable Galo Burrell MD Unavailable Unavailable Livan Sharif MD Unavailable + Livan Sharif MD Unavailable + Catherine Cm MD Unavailable + Valery Veronica PA-C Unavailable [phone] Catherine Cm MD Unavailable + Johnny Murillo MD Unavailable +1- Brea Quinn PLANT SCIENCE PROFESSOR RING STRIKER Unavailable [phone] Brea Quinn APRN RING STRIKER Unavailable [phone] Jose Francisco Johnson MD Unavailable + Livan Sharif MD Unavailable Catherine Cm MD Unavailable + Sydnie Martinez RN Unavailable Unavailable Alfonso Renteria MD Unavailable [phone] Esha Grimm PA-C Primary Care Provider [phone] Cheng Todd PA-C Unavailable [phone] Radha Lomeli APRN RING STRIKER Unavailable Jelena David OD Unavailable Pao Joseph RN Unavailable Unavailable Esha GrimmC Unavailable [phone] Valery Veronica PA-C Unavailable Rey Tay MD Unavailable Rocky Zepeda DO Unavailable Philip Dumont MD Unavailable [phone] Encounter Details Date Type Department Care Team (Late st Contact Info) Description 05/16/2020 MyC Medical Advice [address] [phone] Jerome Ferrell, RN Social History [...] COVID-19? No / Unsure 05/12/2020 9:03 AM MACHINE II ENGRAVER documented as of this encounter Plan of Treatment Upcoming Encounters Date Type Department Care Team (Late st Contact Info) Description 11/01/2023 8:00 AM CDT Appointment [facility] [address] [place] [phone] Lauren Claudio PA-C [address] [place], [place] [phone] 11/03/2023 8:00 AM CDT Office Visit [address] [phone] Valery Veronica PA-C [address] [place] [address] 11/29/2023 8:00 AM CDT Office Visit [facility] [address] [place] [phone] Esha Grimm PA-C [address] [place] [phone] 12/19/2023 11:30 AM CDT Hospital Encounter [address] [phone] Rocky Zepeda DO [address] [place], [place] [address] 12/19/2023 11:30 AM CDT - 12/19/2023 12:00 PM CDT Surgery [address] [phone] Rocky Zepeda DO [address] [place] [address] Esophagoscopy, gastroscopy, duodenoscopy (EGD), combined 01/02/2024 8:00 AM CDT Office Visit [facility] [address] [place] [address] Lauren Claudio PA-C [phone] [place] [address] Kelli Perez MD [address] [place] [address] Scheduled Procedures Name Priority Associated Diagnoses Date/Ti in ESOPHAGOGASTRODUODENOSCOPY Eosinophilic esophagitis Esophageal dysphagia 12/19/2023 11:30 AM CDT documented as of this encounter Visit Diagnoses Not on filedocumented in this encounter Additional Health Concerns Infection Onset Date Last Indicated Resolved Time Rule Out COVID-19 07/30/2020 07/30/2020 07/30/2020 7:11 PM MACHINE II ENGRAVER Rule Out COVID-19 08/30/2020 08/30/2020 08/30/2020 5:05 PM MACHINE II ENGRAVER Rule Out COVID-19 09/24/2020 09/24/2020 09/24/2020 9:24 AM CDT Rule Out COVID-19 11/05/2020 11/05/2020 11/06/2020 1:09 PM CDT Rule Out COVID-19 05/11/2021 05/11/2021 05/13/2021 10:18 AM CDT Rule Out COVID-19 07/13/2021 07/13/2021 07/14/2021 3:04 PM MACHINE II ENGRAVER Rule Out COVID-19 07/18/2021 07/18/2021 07/20/2021 1:56 PM MACHINE II ENGRAVER COVID-19 07/18/2021 07/18/2021 08/08/2021 11:3 9 PM MACHINE II ENGRAVER Rule Out COVID-19 12/18/2021 12/18/2021 12/19/2021 11:34 AM CDT Rule Out COVID-19 02/24/2022 02/24/2022 02/25/2022 1:08 PM CDT Rule Out COVID-19 04/26/2022 04/26/2022 04/26/2022 6:47 AM CDT Rule Out COVID-19 05/17/2022 05/17/2022 05/17/2022 10:20 PM MACHINE II ENGRAVER Rule Out COVID-19 06/09/2022 06/09/2022 06/09/2022 9:35 AM MACHINE II ENGRAVER COVID-19 06/09/2022 06/09/2022 06/30/2022 11:4 1 PM MACHINE II ENGRAVER Rule Out COVID-19 11/10/2022 11/10/2022 11/11/2022 12:17 PM CDT Rule Out COVID-19 03/07/2023 03/07/2023 03/07/2023 1:20 PM CDT Assessment Noted Time PHQ-9 Depression Total Score: 12 020 2:40 PM CDT documented as of this encounter Care Teams Supervisor Machine Workers Relationship Specialty Start Date End Date Marija Edgar APRN RING STRIKER [address] [place] [address] PCP - General Nurse Practitioner 04/30/20 04/14/23 Esha Grimm PA-C [address] [place] [phone] PCP - General Family Medicine 05/04/23 Lita Oseguera Personal Advocate & Liaison (PAL) 02/28/20 03/27/23 Rakesh Cid PA-C [address] [place] [address] Assigned PCP 03/02/20 06/07/20 Chanelle Mccann APRN CNAdam [address] [place] [address] Assigned OBGYN Provider 05/02/2005/09 Lesley Moody [facility] Community Health Worker 05/30/2005/12 Kyara De La Fuente, RN Specialty Cellular Plastics Cutter Neurology 06/04/20 03/05/21 Marija Edgar APRN RING STRIKER [address] [place] [address] Assigned PCP 06/08/20 04/29/23 Mynor Broussard MD [address] [place] [address] Assigned Surgical Provider 06/01/20 11/28/21 Keisha Dotson MD [address] [place], [place] [address] Assigned Neuroscience Provider 06/04/20 04/01/23 Mary Mejia Financial Resource Worker 08/07/20 08/21/20 Stacey Briones, [facility] Lead Cellular Plastics Cutter Primary Care - CC 08/11/2012/30 Lesley Moody, [facility] Community Health Worker 08/11/2010/01 Mary Mejia Financial Resource Worker 09/02/20 10/06/20 Lita Oseguera Personal Advocate & Liaison (PAL) Family Medicine 09/10/20 09/21/20 Galo Burrell MD Assigned Heart and Vascular Provider 10/05/20 04/02/22 Cristina Wood Financial Resource Worker 10/07/20 10/14/20 Lesley Moody [facility] Community Health Worker 10/23/2012/30 Meredith Bedoya Financial Resource Worker 10/23/20 11/23/20 Cristina Wood Financial Resource Worker 02/09/21 02/09/21 Diana Desir, [facility] [address] [place] [address] Pharmacist Pharmacist 04/17/21 Rain Galaviz PA-C [address] [place] [address] [place] [address] Physician Radio Interference Supervisor Dermatology 04/28/21 Summer Lara MD [address] [facility] [place] [address] Assigned OBGYN Provider 05/10/2105/23 Summer Lara MD [address] [place] [address] [place] [address] Assigned OBGYN Provider 05/31/21 Summer Lara MD [address] [place] [address] [place] [address] Assigned OBGYN Provider 05/24/2105/30 Tavia Wyatt MD [address] [place] [address] [place] [address] Dermatology 07/14/21 Johnny Murillo MD [address] [place] [address] Assigned Musculoskeletal Provider 08/30/21 03/17/22 Erica Farrell APRN RING STRIKER [address] [facility] [address] [place] [address] Nurse Practitioner Cardiovascular Disease 09/09/21 Teresita Bean [facility] [address] [place] [address] Pharmacist Pharmacist 09/24/21 09/29/21 Tavia Wyatt MD Assigned Surgical Provider 11/29/21 05/07/22 Diana Desir, [facility] [address] [place] [address] Assigned MTM Pharmacist 01/02/22 Rich Barrett MD [address] [place] [address] Physician Ophthalmology 01/21/22 Neil Kent MD [address] [place] [address] Dermatology 02/24/22 Roney Story DPM [address] [address] Assigned Musculoskeletal Provider 03/20/22 08/13/22 Erica Farrell APRN RING STRIKER [address] [place] [address] Assigned Heart and Vascular Provider 04/03/22 04/16/22 Diana Desir, [facility] [address] [place] [address] Assigned MTM Pharmacist 04/07/22 Jelena David OD [address] [facility] [place] [address] Assigned Surgical Provider 05/08/22 10/08/22 Galo Burrell MD Assigned Heart and Vascular Provider 04/17/22 06/11/22 Livan Sharif MD [address], [facility] [address] [place] [address] Cardiovascular Disease 05/14/22 Livan Sharif MD [address], [place] [address] [place], [place] [address] Assigned Heart and Vascular Provider 06/12/22 07/23/22 Catherine Cm MD [address] [facility] [address] [place], [place] [address] Cardiovascular Disease 07/21/22 Valery Veronica, PAUcheC [address] [place] [address] Physician Radio Interference Supervisor Dermatology 07/21/22 Catherine Cm MD [address] [place] [address] [place], [place] 6738[address] Assigned Heart and Vascular Provider 07/24/22 11/05/22 Johnny Murillo MD [facility] [address] [id number] Assigned Musculoskeletal Provider 08/14/22 10/08/22 Brea Quinn APRN RING STRIKER [address] [place] [address] [id number] Nurse Practitioner Dermatology 09/21/22 Brea Quinn, PLANT SCIENCE PROFESSOR RING STRIKER [address] [facility] [address] Assigned Surgical Provider 10/09/22 [place] [address] [facility] [address] [place] [address] Assigned Musculoskeletal Provider 10/09/22 Livan Sharif MD [address] [facility] [address] [place] [address] Assigned Heart and Vascular Provider 11/06/22 11/12/22 Catherine Cm MD [address] [place] [address] [place] [address] Assigned Heart and Vascular Provider 11/13/22 05/27/23 JuanSydnie malik, RN Personal Advocate & Liaison (PAL) Family Medicine 03/28/23 07/31/23 Alfonso Renteria MD [address] [facility] [address] [place], [place] [address] Assigned Neuroscience Provider 04/02/23 Cheng Todd PA-C [address] [place] [address] Assigned PCP 04/30/23 07/15/23 Radha Lomeli APRN RING STRIKER [address] [place] [address] Assigned Heart and Vascular Provider 05/28/23 Jelena David OD [address] [facility] [place] [address] Ophthalmology 06/15/23 Pao Joseph, RN Personal Advocate & Liaison (PAL) Nurse 08/01/23 Esha Grimm PA-C [address] [place] [phone] Assigned PCP 07/16/23 Valery Veronica PA-C [address] [place] [address] Physician Radio Interference Supervisor Dermatology 09/19/23 Rey Tay MD [address] [place] [address] 594875 MD Gastroenterology 09/20/23 Rocky Zepeda DO [address] [place] [address] Physician Gastroenterology 09/20/23 Philip Dumont MD [address] [place] [address] 236515 Physician Ophthalmology 09/22/23 documented as of this encounter
--- OUTSIDE RECORDS SUMMARY | 2023-10-28 16:49 | XMS_ITS | Encounter Summary ---
Author Name Unknown Organization [facility] Address [address] [place] [address] Care Team Providers Care Personal Insurance Advisor Name Role Phone Rakesh Cid PA-C Unavailable + Rakesh Cid PA-C Primary Care Provider Lita Oseguera Unavailable Unavailable Rakesh Cid PA-C Unavailable + Isaura Lamar RN Unavailable Unavailable Lita Oseguera Unavailable Unavailable Marija Edgar APRN DIRECT CARE COUNSELOR Primary Care Provider Chanelle Gutierrez APRN CNM Unavailab le Lesley Moody CHW Unavailable [phone] Kyara De La Fuente RN Unavailable [phone] Marija Edgar APRN DIRECT CARE COUNSELOR Unavailable Unavail able Mynor Broussard MD Unavailable [phone] Keisha Dotson MD Unavailable [phone] Mary Mejia Unavailable Unavailable Stacey Briones OFFSET DUPLICATING MACHINE OPERATOR Unavailable [phone] Lesley Moody CHW Unavailable [phone] Mary Mejia Unavailable Unavailable Lita Oseguera Unavailable Unavailable Galo Burrell MD Unavailable Unavailable Cristina Wood Unavailable Lesley Moody [facility] Unavailable Meredith Bedoya Unavailable Unavailable Tere Woodie Unavailable Diana Desir [facility] Unavailable [phone] Rain Galaviz PA-C Unavailable Summer Lara MD Unavailable +[phone] Summer Lara MD Unavailable + [phone] Summer Lara MD Unavailable +[phone] Tavia Wyatt MD Unavailable Unavailable Johnny Murillo MD Unavailable +[phone] Erica Farrell APRN DIRECT CARE COUNSELOR Unavailable + Teresita Bean [facility] Unavailable [phone] Tavia Wyatt MD Unavailable Unavailable Diana Desir [facility] Unavailable + [phone] Rich Barrett MD Unavailable +[phone] Neil Kent MD Unavailable Roney Story DPM Unavailable [phone] Erica Farrell QUALITY TECHNICIAN DIRECT CARE COUNSELOR Unavailable + Diana Desir [facility] Unavailable [phone] Jelena David OD Unavailable Galo Burrell MD Unavailable Unavailable Livan Sharif MD Unavailable + Livan Sharif MD Unavailable + Catherine Cm MD Unavailable + Valery Veronica PA-C Unavailable [phone] Catherine Cm MD Unavailable + Johnny Murillo MD Unavailable [phone] Brea Quinn QUALITY TECHNICIAN DIRECT CARE COUNSELOR Unavailable Brea Quinn QUALITY TECHNICIAN DIRECT CARE COUNSELOR Unavailable Jose Francisco Johnson MD Unavailable Livan Sharif MD Unavailable Catherine Cm MD Unavailable + Sydnie Martinez RN Unavailable Unavailable Alfonso Renteria MD Unavailable + [phone] Esha Grimm PA-C Primary Care Provider Cheng Todd PA-C Unavailable [phone] Radha Lomeli QUALITY TECHNICIAN DIRECT CARE COUNSELOR Unavailable [phone] Frankie Jelena Templetone OD Unavailable [phone] Pao Joseph RN Unavailable Unavailable Esha Grimm PA-C Unavailable [phone] Valery Veronica PA-C Unavailable [phone] Rey Tay MD Unavailable Rocky Zepeda DO Unavailable Philip Dumont MD Unavailable [phone] Reason for Visit * Reason Onset Date Comments Appointment 02/13/2020 Anxiety Encounter Details Date Type Department Care Team (Late st Contact Info) Description 02/13/2020 [facility] [address] [address] Rakesh Cid, PA-C [address] [place] [address] Appointment (Anxiety) Social History Tobacco [...] Forrester RN - 02/15/2020 2:28 PM CDT Nutanixhart message sent to patient to schedule a [...] [facility] [address] [place] [address] Lauren Claudio PA-C [address] [place] [address] 11/03/2023 8:00 AM CDT Office Visit [address] [phone] Valery Veronica PA-C [address] [place] [address] 11/29/2023 8:00 AM CDT Office Visit [address] [phone] Esha Grimm PA-C [id number] [place] [phone] 12/19/2023 11:30 AM CDT Hospital Encounter [address] [phone] Rocky Zepeda DO [address] [place] [address] 12/19/2023 11:30 AM CDT - 12/19/2023 12:00 PM CDT Surgery [address] [phone] Rocky Zepeda DO [address] [place], [place] [address] Esophagoscopy, gastroscopy, duodenoscopy (EGD), combined 01/02/2024 8:00 AM CDT Office Visit [address] [phone] Lauren Claudio PA-C [address] [place], [place] [phone] Kelli Perez MD [address] [id number] Scheduled Procedures Name Priority Associated Diagnoses Date/Ti ne ESOPHAGOGASTRODUODENOSCOPY Eosinophilic esophagitis Esophageal dysphagia 12/19/2023 11:30 AM CDT documented as of this encounter Visit Diagnoses Not on filedocumented in this encounter Additional Health Concerns Infection Onset Date Last Indicated Resolved Time Rule Out COVID-19 07/30/2020 07/30/2020 07/30/2020 7:11 PM HERBICIDE SPRAYER Rule Out COVID-19 08/30/2020 08/30/2020 08/30/2020 5:05 PM HERBICIDE SPRAYER Rule Out COVID-19 09/24/2020 09/24/2020 09/24/2020 9:24 AM CDT Rule Out COVID-19 11/05/2020 11/05/2020 11/06/2020 1:09 PM CDT Rule Out COVID-19 05/11/2021 05/11/2021 05/13/2021 10:18 AM CDT Rule Out COVID-19 07/13/2021 07/13/2021 07/14/2021 3:04 PM HERBICIDE SPRAYER Rule Out COVID-19 07/18/2021 07/18/2021 07/20/2021 1:56 PM HERBICIDE SPRAYER COVID-19 07/18/2021 07/18/2021 08/08/2021 11:3 9 PM HERBICIDE SPRAYER Rule Out COVID-19 12/18/2021 12/18/2021 12/19/2021 11:34 AM CDT Rule Out COVID-19 02/24/2022 02/24/2022 02/25/2022 1:08 PM CDT Rule Out COVID-19 04/26/2022 04/26/2022 04/26/2022 6:47 AM CDT Rule Out COVID-19 05/17/2022 05/17/2022 05/17/2022 10:20 PM HERBICIDE SPRAYER Rule Out COVID-19 06/09/2022 06/09/2022 06/09/2022 9:35 AM HERBICIDE SPRAYER COVID-19 06/09/2022 06/09/2022 06/30/2022 11:4 1 PM HERBICIDE SPRAYER Rule Out COVID-19 11/10/2022 11/10/2022 11/11/2022 12:17 PM CDT Rule Out COVID-19 03/07/2023 03/07/2023 03/07/2023 1:20 PM CDT Assessment Noted Time PHQ-9 Depression Total Score: 1 09/11/19 1:42 PM HERBICIDE SPRAYER documented as of this encounter Care Teams Personal Insurance Advisor Relationship Specialty Start Date End Date Rakesh Cid PA-C [address] [facility] [place] [address] PCP - General Physician Demonstrator Sewing Techniques - Medical 05/14/19 04/29/20 Marija Edgar APRN DIRECT CARE COUNSELOR PCP - General Nurse Practitioner 04/30/20 04/14/23 Esha Grimm PA-C [address] [place] [phone] PCP - General Family Medicine 05/04/23 Rakesh Cid PA-C [address] [place] [address] Assigned PCP 05/06/19 03/01/20 Lita Oseguera Personal Advocate & Liaison (PAL) 02/28/20 03/27/23 Rakesh Cid [facility]-C [address] [facility] [place] [address] Assigned PCP 03/02/20 06/07/20 Isaura Lamar, RN Personal Advocate & Liaison (PAL) Family Practice 04/03/20 04/06/20 Lita Oseguera Personal Advocate & Liaison (PAL) 04/07/20 04/29/20 [place] [address] [address] Assigned OBGYN Provider 05/02/2005/09 Lesley Moody, [facility] Community Health Worker 05/30/2005/12 Kyara De La Fuente, RN [employer] Neurology 06/04/20 03/05/21 Marija Edgar APRN DIRECT CARE COUNSELOR Assigned PCP 06/08/20 04/29/23 Mynor Broussard MD [address] [phone] Assigned Surgical Provider 06/01/20 11/28/21 Keisha Dotson MD [address] [place], [place] [address] Assigned Neuroscience Provider 06/04/20 04/01/23 Mary Mejia Financial Resource Worker 08/07/20 08/21/20 Stacey Briones, [facility] [employer] Primary Care - CC 08/11/2012/30 Lesley Moody, [facility] Community Health Worker 08/11/2010/01 Mary Mejia Financial Resource Worker 09/02/20 10/06/20 Lita Oseguera Personal Advocate & Liaison (PAL) Family Medicine 09/10/20 09/21/20 Galo Burrell MD Assigned Heart and Vascular Provider 10/05/20 04/02/22 Cristina Wood Financial Resource Worker 10/07/20 10/14/20 Lesley Moody, [facility] Community Health Worker 10/23/2012/30 Meredith Bedoya Financial Resource Worker 10/23/20 11/23/20 Cristina Wood Financial Resource Worker 02/09/21 02/09/21 Diana Desir, [facility] [address] [place] [address] Pharmacist Pharmacist 04/17/21 Rain Galaviz PA-C [address] [place] [address] [place] [address] Physician Demonstrator Sewing Techniques Dermatology 04/28/21 Summer Lara MD [address] [place], [place] [address] Assigned OBGYN Provider 05/10/2105/23 Summer Lara MD [address] [place] [address] Assigned OBGYN Provider 05/31/21 Summer Lara MD [address] [facility] [address] [place], [place] [address] Assigned OBGYN Provider 05/24/2105/30 Tavia Wyatt MD [address] [facility] [place] [address] Dermatology 07/14/21 Johnny Murillo MD [address] [place] [address] Assigned Musculoskeletal Provider 08/30/21 03/17/22 Erica Farrell APRN DIRECT CARE COUNSELOR [address] [facility] [address] [place] [address] Nurse Practitioner Cardiovascular Disease 09/09/21 Teresita Bean, [facility] [address] [facility] [place] [address] Pharmacist Pharmacist 09/24/21 09/29/21 Tavia Wyatt MD Assigned Surgical Provider 11/29/21 05/07/22 Diana Desir, [facility] [address] [place] [address] Assigned MTM Pharmacist 01/02/22 Rich Barrett MD [address] 704615 Physician Ophthalmology 01/21/22 Neil Kent MD [address] [place], [place] [address] Dermatology 02/24/22 Roney Story DPM [address] [facility] [address] [place] [address] Assigned Musculoskeletal Provider 03/20/22 08/13/22 Erica Farrell APRN DIRECT CARE COUNSELOR [address] [place] [address] Assigned Heart and Vascular Provider 04/03/22 04/16/22 Diana Desir, [facility] [address] [place] [address] Assigned MTM Pharmacist 04/07/22 Jelena David OD [address] [facility] [place] [address] Assigned Surgical Provider 05/08/22 10/08/22 Galo Burrell MD Assigned Heart and Vascular Provider 04/17/22 06/11/22 Livan Sharif MD [address] [place] [address] Cardiovascular Disease 05/14/22 Livan Sharif MD [address] [place] [address] Assigned Heart and Vascular Provider 06/12/22 07/23/22 Catherine Cm MD [address] [place], [place] [address] Cardiovascular Disease 07/21/22 Valery Veronica, PA-C [address] [place] [address] Physician Demonstrator Sewing Techniques Dermatology 07/21/22 Catherine Cm MD [address] [place], [place] [address] Assigned Heart and Vascular Provider 07/24/22 11/05/22 Johnny Murillo MD [facility] [address] 257284 Assigned Musculoskeletal Provider 08/14/22 10/08/22 Brea Quinn APRN DIRECT CARE COUNSELOR [address] [place] [address] [phone] Nurse Practitioner Dermatology 09/21/22 Brea Quinn APRN DIRECT CARE COUNSELOR [address] [facility] [place] [address] Assigned Surgical Provider 10/09/22 [place] [address] [facility] [address] [place] [address] Assigned Musculoskeletal Provider 10/09/22 Livan Sharif MD [address], [facility] [address] [place] [address] Assigned Heart and Vascular Provider 11/06/22 11/12/22 Catherine Cm MD [address] [place] [address] Assigned Heart and Vascular Provider 11/13/22 05/27/23 Sydnie Martinez, VJ Personal Advocate & Liaison (PAL) Family Medicine 03/28/23 07/31/23 Alfonso Renteria MD [address] [facility] [address] [place] [address] Assigned Neuroscience Provider 04/02/23 Cheng Todd PA-C [address] [place] [address] Assigned PCP 04/30/23 07/15/23 Radha Lomeli APRN DIRECT CARE COUNSELOR [address] [place] [id number] Assigned Heart and Vascular Provider 05/28/23 Jelena David OD [address] [facility] [place] [address] Ophthalmology 06/15/23 Pao Joseph, RN Personal Advocate & Liaison (PAL) Nurse 08/01/23 Esha Grimm PA-C [address] [place] [address] Assigned PCP 07/16/23 Valery Veronica PA-C [address] [place] [address] 885295 Physician Demonstrator Sewing Techniques Dermatology 09/19/23 Rey Tay MD [address] [place] [address] Gastroenterology 09/20/23 Rocky Zepeda DO [address] [place] [address] 360685 Physician Gastroenterology 09/20/23 Philip Dumont MD [address] [place] [address] 287355 Physician Ophthalmology 09/22/23 documented as of this encounter
--- OUTSIDE RECORDS SUMMARY | 2023-10-28 16:49 | XMS_ITS | Encounter Summary ---
Author Name Unknown Organization [facility] Address [address] [place] [address] Care Team Providers Care Crop Quantitative Geneticist Name Role Phone Lita Oseguera Unavailable Unavailable Rakesh Cid PA-C Unavailable [phone] Marija Edgar APRN HADOOP ARCHITECT Primary Care Provider Chanelle Gutierrez HEALTH PROMOTION EDUCATOR CNM Unavailab le Lesley Moody CHW Unavailable Kyara De La Fuente RN Unavailable [phone] Marija Edgar APRN HADOOP ARCHITECT Unavailable Unavail able Mynor Broussard MD Unavailable [phone] Keisha Dotson MD Unavailable [phone] Mary Mejia Unavailable Unavailable Stacey Briones DIALYSIS SOCIAL WORKER Unavailable [phone] Lesley Moody CHW Unavailable Mary Mejia Unavailable Unavailable Lita Oseguera Unavailable Unavailable Galo Burrell MD Unavailable Unavailable Cristina Wood Unavailable Lesley Moody CHW Unavailable [phone] Meredith Bedoya Unavailable Unavailable Cristina Wood Unavailable Diana Desir [facility] Unavailable [phone] Anastacia Rain Paredes PA-C Unavailable [phone] Summer Lara MD Unavailable [phone] Summer Lara MD Unavailable [phone] Summer Lara MD Unavailable [phone] Tavia Wyatt MD Unavailable Unavailable Johnny Murillo MD Unavailable +1- Erica Farrell HEALTH PROMOTION EDUCATOR HADOOP ARCHITECT Unavailable + VikasTeresita [facility] Unavailable Tavia Wyatt MD Unavailable Unavailable Desir [place] [facility] Unavailable [phone] Rich Barrett MD Unavailable [phone] Neil Kent MD Unavailable Roney Story DPM Unavailable [phone] Erica Farrell HEALTH PROMOTION EDUCATOR HADOOP ARCHITECT Unavailable + Diana Desir [facility] Unavailable [phone] Jelena David OD Unavailable Galo Burrell MD Unavailable Unavailable Livan Sharif MD Unavailable + Livan Sharif MD Unavailable + Catherine Cm MD Unavailable + Valery Veronica PA-C Unavailable [phone] Catherine Cm MD Unavailable + Johnny Murillo MD Unavailable +1- Brea Quinn HEALTH PROMOTION EDUCATOR HADOOP ARCHITECT Unavailable [phone] Brea Quinn APRN HADOOP ARCHITECT Unavailable [phone] Jose Francisco Johnson MD Unavailable + Livan Sharif MD Unavailable Catherine Cm MD Unavailable + Sydnie Martinez RN Unavailable Unavailable Alfonso Renteria MD Unavailable [phone] Esha Grimm PA-C Primary Care Provider [phone] Cheng Todd PA-C Unavailable [phone] Radha Lomeli APRN HADOOP ARCHITECT Unavailable [phone] Jelena David OD Unavailable Pao Joseph RN Unavailable Unavailable Esha GrimmC Unavailable [phone] Valery Veronica PA-C Unavailable Rey Tay MD Unavailable Rocky Zepeda DO Unavailable Philip Dumont MD Unavailable Encounter Details Date Type Department Care Team (Late st Contact Info) Description 06/05/2020 [facility] Medical Advice [address] [address] Marija Edgar, ARLENE HADOOP ARCHITECT Social History Tobacco Use Types Packs/Day Years [...] COVID-19? No / Unsure 06/04/2020 10:30 AM POCKET SETTER LOCKSTITCH documented as of this encounter Miscellaneous Notes * Telephone Encounter - Marija Edgar APRN CNP - 06/09/2020 9:38 AM POCKET SETTER LOCKSTITCH Those referrals have been placed. The mental health attempted call but patient did not answer. Please have patient check voicemail's or await one further follow-up call. They will call her to set up Holter monitor. Thank you Marija Edgar APRN CNP on 06/09/2020 at 9:40 AM ET SETTER LOCKSTITCH documented in this encounter Plan of Treatment Upcoming Encounters Date Type Department Care Team (Late st Contact Info) Description 11/01/2023 8:00 AM CDT Appointment [facility] [address] [place] [address] Lauren Claudio PA-C [address] [place], [place] [phone] 11/03/2023 8:00 AM CDT Office Visit [address] [phone] Valery Veronica PA-C [address] [place] [address] 11/29/2023 8:00 AM CDT Office Visit [facility] [address] [place] [phone] Esha Grimm PA-C [address] [place] [phone] 12/19/2023 11:30 AM CDT Hospital Encounter [facility] [address] [facility] 5th [place] [phone] Rocky Zepeda, [address] [place] [address] 12/19/2023 11:30 AM CDT - 12/19/2023 12:00 PM CDT Surgery [facility] [address] [facility] [address] 5th [place] [phone] Rocky Zepeda, DO [address] [facility] [address] [place], [place] [phone] Esophagoscopy, gastroscopy, duodenoscopy (EGD), combined 01/02/2024 8:00 AM CDT Office Visit [facility] [address] [place] [address] Lauren Claudio PA-C [address] [place] [phone] Kelli Perez MD [address] [place] [address] 368444 Scheduled Procedures Name Priority Associated Diagnoses Date/Ti nc ESOPHAGOGASTRODUODENOSCOPY Eosinophilic esophagitis Esophageal dysphagia 12/19/2023 11:30 AM CDT documented as of this encounter Visit Diagnoses Not on filedocumented in this encounter Additional Health Concerns Infection Onset Date Last Indicated Resolved Time Rule Out COVID-19 07/30/2020 07/30/2020 07/30/2020 7:11 PM POCKET SETTER LOCKSTITCH Rule Out COVID-19 08/30/2020 08/30/2020 08/30/2020 5:05 PM POCKET SETTER LOCKSTITCH Rule Out COVID-19 09/24/2020 09/24/2020 09/24/2020 9:24 AM CDT Rule Out COVID-19 11/05/2020 11/05/2020 11/06/2020 1:09 PM CDT Rule Out COVID-19 05/11/2021 05/11/2021 05/13/2021 10:18 AM CDT Rule Out COVID-19 07/13/2021 07/13/202107/1407/14/2021 3:04 PM POCKET SETTER LOCKSTITCH Rule Out COVID-19 07/18/2021 07/18/2021 07/20/2021 1:56 PM POCKET SETTER LOCKSTITCH COVID-19 07/18/2021 07/18/2021 08/08/2021 11:3 9 PM POCKET SETTER LOCKSTITCH Rule Out COVID-19 12/18/2021 12/18/2021 12/19/2021 11:34 AM CDT Rule Out COVID-19 02/24/2022 02/24/2022 02/25/2022 1:08 PM CDT Rule Out COVID-19 04/26/2022 04/26/2022 04/26/2022 6:47 AM CDT Rule Out COVID-19 05/17/2022 05/17/2022 05/17/2022 10:20 PM POCKET SETTER LOCKSTITCH Rule Out COVID-19 06/09/2022 06/09/2022 06/09/2022 9:35 AM POCKET SETTER LOCKSTITCH COVID-19 06/09/2022 06/09/2022 06/30/2022 11:4 1 PM POCKET SETTER LOCKSTITCH Rule Out COVID-19 11/10/2022 11/10/2022 11/11/2022 12:17 PM CDT Rule Out COVID-19 03/07/2023 03/07/2023 03/07/2023 1:20 PM CDT Assessment Noted Time PHQ-9 Depression Total Score: 9 06/04/20 20 10:35 AM POCKET SETTER LOCKSTITCH documented as of this encounter Care Teams Crop Quantitative Geneticist Relationship Specialty Start Date End Date Marija Edgar APRN CNP [address] [place] [address] PCP - General Nurse Practitioner 04/30/20 04/14/23 Esha Grimm PA-C [address] [place] [phone] PCP - General Family Medicine 05/04/23 Lita Oseguera Personal Advocate & Liaison (PAL) 02/28/20 03/27/23 Rakesh Cid PA-C [address] [place] [address] Assigned PCP 03/02/20 06/07/20 Chanelle Mccann APRN CNM [address] [place] [address] [address] [place] [address] Assigned OBGYN Provider 05/02/2005/09 Lesley Moody, CHW Community Health Worker 05/30/2005/12 Kyara De La Fuente, RN Specialty Measurement Operator Neurology 06/04/20 03/05/21 Marija Edgar APRN HADOOP ARCHITECT [address] [facility] [place] [address] Assigned PCP 06/08/20 04/29/23 Mynor Broussard MD [address] [facility] [address] [place] [address] Assigned Surgical Provider 06/01/20 11/28/21 Keisha Dotson MD [address]09 [place] [address] Assigned Neuroscience Provider 06/04/20 04/01/23 Mary Mejia Financial Resource Worker 08/07/20 08/21/20 Stacey Briones, [facility] Lead Measurement Operator Primary Care - CC 08/11/2012/30 Lesley Moody, CHW Community Health Worker 08/11/2010/01 Mary Mejia Financial Resource Worker 09/02/20 10/06/20 Lita Oseguera Personal Advocate & Liaison (PAL) Family Medicine 09/10/20 09/21/20 Galo Burrell MD Assigned Heart and Vascular Provider 10/05/20 04/02/22 Cristina Wood Financial Resource Worker 10/07/20 10/14/20 Lesley Moody, [facility] Community Health Worker 10/23/2012/30 Meredith Bedoya Financial Resource Worker 10/23/20 11/23/20 Cristina Wood Financial Resource Worker 02/09/21 02/09/21 Diana Desir, [facility] [address] [place], [place] [address] Pharmacist Pharmacist 04/17/21 Rain Galaviz PA-C [address] [place] [address] [place] [address] Physician Real Estate Intern Dermatology 04/28/21 Summer Lara MD [address] [place] [address] 586244 Assigned OBGYN Provider 05/10/2105/23 Summer Lara MD [address] [place] [address] 489054 Assigned OBGYN Provider 05/31/21 2 Summer Lara MD [address] [place] [address] [phone] Assigned OBGYN Provider 05/24/2105/30 Tavia Wyatt MD [address] [place] [address] Dermatology 07/14/21 Johnny Murillo MD [address] [place] [address] Assigned Musculoskeletal Provider 08/30/21 03/17/22 Erica Farrell APRN HADOOP ARCHITECT [address] [facility] [address] [place] [address] Nurse Practitioner Cardiovascular Disease 09/09/21 Teresita Bean, [facility] [address] [place] [phone] Pharmacist Pharmacist 09/24/21 09/29/21 Tavia Wyatt MD Assigned Surgical Provider 11/29/21 05/07/22 [facility] [address] [place] [address] Assigned MTM Pharmacist 01/02/22 Rich Barrett MD [address] [facility] [address] [place] [address] Physician Ophthalmology 01/21/22 Neil Kent MD 500 [place] [address] Dermatology 02/24/22 Roney Story DPM [address] [facility] [address] [place] [address] Assigned Musculoskeletal Provider 03/20/22 08/13/22 Erica Farrell APRN HADOOP ARCHITECT [address] [place] [address] Assigned Heart and Vascular Provider 04/03/22 04/16/[address] [facility] [address] [place] [address] Assigned MTM Pharmacist 04/07/22 Jelena David OD [address] [facility] [place] [address] Assigned Surgical Provider 05/08/22 10/08/22 Galo Burrell MD Assigned Heart and Vascular Provider 04/17/22 06/11/22 Livan Sharif MD [address] [place] [address] Cardiovascular Disease 05/14/22 Livan Sharif MD [address] [place] [address] Assigned Heart and Vascular Provider 06/12/22 07/23/22 Catherine Cm MD [address] [place] [address] Cardiovascular Disease 07/21/22 Valery Veronica PA-C [address] [place] [address] Physician Real Estate Intern Dermatology 07/21/22 Catherine Cm MD [address] [place] [phone] Assigned Heart and Vascular Provider 07/24/22 11/05/22 Johnny Murillo MD [facility] [address] Assigned Musculoskeletal Provider 08/14/22 10/08/22 Brea Quinn APRN HADOOP ARCHITECT [address] [place] [address] [phone] Nurse Practitioner [facility] 09/21/22 Brea Quinn APRN HADOOP ARCHITECT [facility] [place], [place] 837422 Assigned Surgical Provider 10/09/22 [place] [address] [address] Assigned Musculoskeletal Provider 10/09/22 Livan Sharif MD [address] [facility] [address] [place] [address] Assigned Heart and Vascular Provider 11/06/22 11/12/22 Catherine Cm MD [address] [facility] [place] [address] Assigned Heart and Vascular Provider 11/13/22 05/27/23 Sydnie Martinez RN Personal Advocate & Liaison (PAL) Family Medicine 03/28/23 07/31/23 Alfonso Renteria MD [address] [facility] [address] [place], [place] [address] Assigned Neuroscience Provider 04/02/23 Cheng Todd PA-C [address] [place] [address] Assigned PCP 04/30/23 07/15/23 Radha Lomeli APRN HADOOP ARCHITECT [address] [place] [address] Assigned Heart and Vascular Provider 05/28/23 Jelena David OD [address] [facility] [place] [address] MD Ophthalmology 06/15/23 Pao Joseph, VJ Personal Advocate & Liaison (PAL) Nurse 08/01/23 Esha Grimm PA-C [address] [place] [address] Assigned PCP 07/16/23 Valery Veronica PA-C [address] [place] [address] [phone] Physician Real Estate Intern Dermatology 09/19/23 Rey Tay MD [address] [place] [address] 909215 Gastroenterology 09/20/23 Rocky Zepeda DO [address] [place] [address] [phone] Physician Gastroenterology 09/20/23 Philip Dumont MD [address] [place] [address] 112285 Physician Ophthalmology 09/22/23 documented as of this encounter
--- OUTSIDE RECORDS SUMMARY | 2023-10-28 16:49 | XMS_ITS | Encounter Summary ---
Author Name Unknown Organization [facility] Address [address] [place] [address] Care Team Providers Care Packing Floor Worker Name Role Phone Rakesh Cid PA-C Primary Care Provider Lita Oseguera Unavailable Unavailable Rakesh Cid PA-C Unavailable + [phone] Lita Oseguera Unavailable Unavailable Marija Edgar APRN SOFTWARE QA SYSTEM SPECIALIST Primary Care Provider Stacie marquis SiobhanChanelle BIOFUELS PLANT OPERATIONS ENGINEER CNM Unavailab le Lesley Moody CHW Unavailable [phone] Kyara De La Fuente RN Unavailable [phone] Marija Edgar APRN SOFTWARE QA SYSTEM SPECIALIST Unavailable Unavail able Mynor Broussard MD Unavailable [phone] Keisha Dotson MD Unavailable [phone] Mary Mejia Unavailable Unavailable Stacey Briones SURVEYOR GEODETIC Unavailable [phone] Lesley Moody CHW Unavailable [phone] Mary Mejia Unavailable Unavailable Lita Oseguera Unavailable Unavailable Galo Burrell MD Unavailable Unavailable Cristina Wood Unavailable Lesley Moody CHW Unavailable Meredith Bedoya Unavailable Unavailable Cristina Wood Unavailable ThangDiana [facility] Unavailable [phone] Rain Galaviz-C Unavailable [phone] Summer Lara MD Unavailable [phone] Summer Lara MD Unavailable +[phone] Summer Lara MD Unavailable +[phone] Tavia Wyatt MD Unavailable Unavailable Johnny Murillo MD Unavailable [phone] Erica Farrell APRN SOFTWARE QA SYSTEM SPECIALIST Unavailable + Teresita Bean [facility] Unavailable Tavia Wyatt MD Unavailable Unavailable ThangDiana Stanislav [facility] Unavailable [phone] Rich Barrett MD Unavailable [phone] Neil Kent MD Unavailable Roney Story DPM Unavailable Erica Farrell APRN SOFTWARE QA SYSTEM SPECIALIST Unavailable + DesirKendrickDiana T [facility] Unavailable [phone] Frankie Jelena Garcia OD Unavailable Galo Burrell MD Unavailable Unavailable Livan Sharif MD Unavailable + Livan Sharif MD Unavailable + Catherine Cm MD Unavailable + Valery Veronica-C Unavailable [phone] Catherine Cm MD Unavailable + Johnny Murillo MD Unavailable +[phone]- Brea Quinn APRN SOFTWARE QA SYSTEM SPECIALIST Unavailable [phone] Brea Quinn BIOFUELS PLANT OPERATIONS ENGINEER SOFTWARE QA SYSTEM SPECIALIST Unavailable Jose Francisco Johnson MD Unavailable Livan Sharif MD Unavailable Cahterine Cm MD Unavailable + Sydnie Martinez RN Unavailable Unavailable Alfonso Renteria MD Unavailable [phone] Esha GrimmC Primary Care Provider Cheng Todd PA-C Unavailable Rdaha Lomeli BIOFUELS PLANT OPERATIONS ENGINEER SOFTWARE QA SYSTEM SPECIALIST Unavailable Jelena David OD Unavailable Poa Joseph RN Unavailable Unavailable Esha Grimm PA-C Unavailable [phone] Valery Veronica-C Unavailable Rey Tay MD Unavailable Rocky Zepeda DO Unavailable Philip Dumont MD Unavailable [phone] Encounter Details Date Type Department Care Team (Late st Contact Info) Description 04/25/2020 MyC Medical Advice [address] [address] Rakesh Cid PA-C [address] [place] [address] Social History Tobacco Use Types [...] Info) Description 11/01/2023 8:00 AM CDT Appointment [facility] Imaging [address] [place] [address] Lauren Claudio PA-C [address] [place], [place] [phone] 11/03/2023 8:00 AM CDT Office Visit [address] [phone] Valery Veronica, PAUcheC [address] [place] [address] 11/29/2023 8:00 AM CDT Office Visit [facility] [address] [place] [phone] Esha Grimm PA-C [address] [place] [phone] 12/19/2023 11:30 AM CDT Hospital Encounter [address] [phone] Rocky Zepeda DO [address] [place] [address] 12/19/2023 11:30 AM CDT - 12/19/2023 12:00 PM CDT Surgery [address] [phone] Rocky Zepeda, DO 500 [place], [place] 310525 Esophagoscopy, gastroscopy, duodenoscopy (EGD), combined 01/02/2024 8:00 AM CDT Office Visit [facility] [address] [place] [address] Lauren Claudio PA-C [phone] [place] [address] Kelli Perez MD [address] [place] [address] 327244 Scheduled Procedures Name Priority Associated Diagnoses Date/Ti al ESOPHAGOGASTRODUODENOSCOPY Eosinophilic esophagitis Esophageal dysphagia 12/19/2023 11:30 AM CDT documented as of this encounter Visit Diagnoses Not on filedocumented in this encounter Additional Health Concerns Infection Onset Date Last Indicated Resolved Time Rule Out COVID-19 07/30/2020 07/30/2020 07/30/2020 7:11 PM STRAIGHTEDGE WORKER Rule Out COVID-19 08/30/2020 08/30/2020 08/30/2020 5:05 PM STRAIGHTEDGE WORKER Rule Out COVID-19 09/24/2020 09/24/2020 09/24/2020 9:24 AM CDT Rule Out COVID-19 11/05/2020 11/05/2020 11/06/2020 1:09 PM CDT Rule Out COVID-19 05/11/2021 05/11/2021 05/13/2021 10:18 AM CDT Rule Out COVID-19 07/13/2021 07/13/2021 07/14/2021 3:04 PM STRAIGHTEDGE WORKER Rule Out COVID-19 07/18/2021 07/18/2021 07/20/2021 1:56 PM STRAIGHTEDGE WORKER COVID-19 07/18/2021 07/18/2021 08/08/2021 11:3 9 PM STRAIGHTEDGE WORKER Rule Out COVID-19 12/18/2021 12/18/2021 12/19/2021 11:34 AM CDT Rule Out COVID-19 02/24/2022 02/24/2022 02/25/2022 1:08 PM CDT Rule Out COVID-19 04/26/2022 04/26/2022 04/26/2022 6:47 AM CDT Rule Out COVID-19 05/17/2022 05/17/2022 05/17/2022 10:20 PM STRAIGHTEDGE WORKER Rule Out COVID-19 06/09/2022 06/09/2022 06/09/2022 9:35 AM STRAIGHTEDGE WORKER COVID-19 06/09/2022 06/09/2022 06/30/2022 11:4 1 PM STRAIGHTEDGE WORKER Rule Out COVID-19 11/10/2022 11/10/2022 11/11/2022 12:17 PM CDT Rule Out COVID-19 03/07/2023 03/07/2023 03/07/2023 1:20 PM CDT Assessment Noted Time PHQ-9 Depression Total Score: 12 020 2:40 PM CDT documented as of this encounter Care Teams Packing Floor Worker Relationship Specialty Start Date End Date Rakesh Cid PA-C PCP - General Physician Bank Secrecy Act Officer - Medical 05/14/19 04/29/20 Marija Edgar APRN CNP [address] [address] PCP - General Nurse Practitioner 04/30/20 04/14/23 Esha Grimm PA-C [address] [facility] [place] [phone] PCP - General Family Medicine 05/04/23 Lita Oseguera Personal Advocate & Liaison (PAL) 02/28/20 03/27/23 Rakesh Cid PA-C [address] [address] Assigned PCP 03/02/20 06/07/20 Lita Oseguera Personal Advocate & Liaison (PAL) 04/07/20 04/29/20 Chanelle Mccann APRN CNM [address] [address] [facility] 200 [place] [address] Assigned OBGYN Provider 05/02/2005/09 Lesley Moody, CHW Community Health Worker 05/30/2005/12 Kyara De La Fuente, RN Specialty Concrete Pipe Making Machine Operator Neurology 06/04/20 03/05/21 Marija Edgar APRN SOFTWARE QA SYSTEM SPECIALIST [address]76 [facility] [address] Assigned PCP 06/08/20 04/29/23 Mynor Broussard MD 6363 [facility] 500 [place] [address] Assigned Surgical Provider 06/01/20 11/28/21 Keisha Dotson MD 909 [place] [address] Assigned Neuroscience Provider 06/04/20 04/01/23 Mary Mejia Financial Resource Worker 08/07/20 08/21/20 Stacey Briones, SURVEYOR GEODETIC Lead Concrete Pipe Making Machine Operator Primary Care - CC 08/11/2012/30 Lesley Moody, CHW Community Health Worker 08/11/2010/01 Mary Mejia Financial Resource Worker 09/02/20 10/06/20 Lita Oseguera Personal Advocate & Liaison (PAL) Family Medicine 09/10/20 09/21/20 Galo Burrell MD Assigned Heart and Vascular Provider 10/05/20 04/02/22 Cristina Wood Financial Resource Worker 10/07/20 10/14/20 Lesley Moody, [facility] Community Health Worker 10/23/2012/30 Meredith Bedoya Financial Resource Worker 10/23/20 11/23/20 Cristina Wood Financial Resource Worker 02/09/21 02/09/21 Diana Desir, [facility] 3033 [place] [address] Pharmacist Pharmacist 04/17/21 Rain Galaviz PA-C [address] [place] [address] [address] [place], [place] [phone] Physician Bank Secrecy Act Officer Dermatology 04/28/21 Summer Lara MD [address] [place] [address] [phone] Assigned OBGYN Provider 05/10/2105/23 Summer Lara MD [address] [place] [address] [phone] Assigned OBGYN Provider 05/31/21 Summer Lara MD [address] [place] [address] [phone] Assigned OBGYN Provider 05/24/2105/30 Tavia Wyatt MD [address] [address] Dermatology 07/14/21 Johnny Murillo MD [address] [place] [address] Assigned Musculoskeletal Provider 08/30/21 03/17/22 Erica Farrell APRN SOFTWARE QA SYSTEM SPECIALIST [address] [place] [address] Nurse Practitioner Cardiovascular Disease 09/09/21 Teresita Bean, [facility] [address] [place] [place], [place] [phone] Pharmacist Pharmacist 09/24/21 09/29/21 Tavia Wyatt MD Assigned Surgical Provider 11/29/21 05/07/22 [facility] [address] [place] [address] Assigned MTM Pharmacist 01/02/22 Rich Barrett MD 516 [facility] 9A [place], [place] 0[address]15 Physician Ophthalmology 01/21/22 Neil Kent MD 500 [place] [address] Dermatology 02/24/22 Roney Story DPM 73833 [facility] 300 [place] [address] Assigned Musculoskeletal Provider 03/20/22 08/13/22 Erica Farrell, ARLENE SOFTWARE QA SYSTEM SPECIALIST 1700 [place] [address] Assigned Heart and Vascular Provider 04/03/22 04/16/22 Diana Desir, [facility] 3033 [place] [address] Assigned MTM Pharmacist 04/07/22 [place]elena David OD [address] [facility] [place] [address] Assigned Surgical Provider 05/08/22 10/08/22 Galo Burrell MD Assigned Heart and Vascular Provider 04/17/22 06/11/22 Livan Sharif MD [address] [place] [address] Cardiovascular Disease 05/14/22 Livan Sharif MD [address] [place] [address] Assigned Heart and Vascular Provider 06/12/22 07/23/22 Catherine Cm MD [address] [place] [address] Cardiovascular Disease 07/21/22 Valery Veronica, PAUcheC 909 [place] [address] Physician Bank Secrecy Act Officer Dermatology 07/21/22 Catherine Cm MD [address] [place] [address] Assigned Heart and Vascular Provider 07/24/22 11/05/22 Johnny Murillo MD [address] [address] Assigned Musculoskeletal Provider 08/14/22 10/08/22 Brea Quinn APRN SOFTWARE QA SYSTEM SPECIALIST [address] [place] [address] Nurse Practitioner Dermatology 09/21/22 Brea Quinn APRN SOFTWARE QA SYSTEM SPECIALIST [address] [place] [address] [place] [address] Assigned Surgical Provider 10/09/22 [place] [address] [facility] 300 [place] [address] Assigned Musculoskeletal Provider 10/09/22 Livan Sharif MD 6405 [facility] L[facility] [address] [place] [address] Assigned Heart and Vascular Provider 11/06/22 11/12/22 Catherine Cm MD 6405 [facility] [address] [place] 900205 Assigned Heart and Vascular Provider 11/13/22 05/27/23 Sydnie Martinez RN Personal Advocate & Liaison (PAL) Family Medicine 03/28/23 07/31/23 Alfonso Renteria MD 5775 [facility] 200 [place], [place] 136956 Assigned Neuroscience Provider 04/02/23 Cheng Todd PA-C [address] [place], [place] [phone] Assigned PCP 04/30/23 07/15/23 Radha Lomeli APRN SOFTWARE QA SYSTEM SPECIALIST 6405 [facility] [address] [place] [address] Assigned Heart and Vascular Provider 05/28/23 [place] [address] [place] [address] [place] [address] MD Ophthalmology 06/15/23 Pao Joseph, VJ Personal Advocate & Liaison (PAL) Nurse 08/01/23 Esha Grimm PA-C [address] [place] [address]109983 Assigned PCP 07/16/23 Valery Veronica PA-C [address] [place] [address] 149255 Physician Bank Secrecy Act Officer Dermatology 09/19/23 Rey Tay MD [address] [place] [address] 398805 Gastroenterology 09/20/23 Rocky Zepeda DO [address] [place] [address] [phone] Physician Gastroenterology 09/20/23 Philip Dumont MD [address] [place] [address] 216875 Physician Ophthalmology 09/22/23 documented as of this encounter
--- OUTSIDE RECORDS SUMMARY | 2023-10-28 16:49 | XMS_ITS | Encounter Summary ---
Author Name Unknown Organization [facility] Address [address] [place] [address] Care Team Providers Care Financial Aid Advisor Name Role Phone Lita Oseguera Unavailable Unavailable Rakesh Cid PA-C Unavailable [phone] Marija Edgar APRN REHABILITATION CONSULTANT Primary Care Provider Chanelle Gutierrez CORRUGATOR MACHINE OPERATOR CNM Unavailab le Lesley Moody CHW Unavailable Kyara De La Fuente RN Unavailable [phone] Marija Edgar APRN REHABILITATION CONSULTANT Unavailable Unavail able Mynor Broussard MD Unavailable [phone] Keisha Dotson MD Unavailable [phone] Mary Mejia Unavailable Unavailable Stacey Briones DIRECTOR OF PRODUCT DESIGN Unavailable [phone] Lesley Moody CHW Unavailable Mary Mejia Unavailable Unavailable Lita Oseguera Unavailable Unavailable Galo Burrell MD Unavailable Unavailable Cristina Wood Unavailable Lesley Moody CHW Unavailable Meredith Bedoya Unavailable Unavailable Cristina Wood Unavailable Diana Desir [facility] Unavailable [phone] Anastacia Rain Paredes PA-C Unavailable [phone] Summer Lara MD Unavailable +[phone] Summer Lara MD Unavailable +[phone] Summer Lara MD Unavailable +[phone] Tavia Wyatt MD Unavailable Unavailable Johnny Murillo MD Unavailable +1- Erica Farrell CORRUGATOR MACHINE OPERATOR REHABILITATION CONSULTANT Unavailable + VikasTeresita [facility] Unavailable Tavia Wyatt MD Unavailable Unavailable Desir Diana [place] [facility] Unavailable [phone] Rich Barrett MD Unavailable [phone] Neil Kent MD Unavailable Roney Story DPM Unavailable [phone] Erica Farrell CORRUGATOR MACHINE OPERATOR REHABILITATION CONSULTANT Unavailable + Diana Desir [facility] Unavailable +[phone] Jelena David OD Unavailable Gaol Burrell MD Unavailable Unavailable Livan Sharif MD Unavailable + Livan Sharif MD Unavailable + Catherine Cm MD Unavailable + Valery Veronica PA-C Unavailable [phone] Catherine Cm MD Unavailable + Johnny Murillo MD Unavailable +1- Brea Quinn CORRUGATOR MACHINE OPERATOR REHABILITATION CONSULTANT Unavailable [phone] Brea Quinn APRN REHABILITATION CONSULTANT Unavailable [phone] Jose Francisco Johnson MD Unavailable + Livan Sharif MD Unavailable Catherine Cm MD Unavailable + Sydnie Martinez RN Unavailable Unavailable Alfonso Renteria MD Unavailable [phone] Esha Grimm PA-C Primary Care Provider [phone] Cheng Todd PA-C Unavailable Radha Lomeli APRN REHABILITATION CONSULTANT Unavailable Jelena David OD Unavailable Pao Joseph RN Unavailable Unavailable Esha GrimmC Unavailable [phone] Valery Veronica PA-C Unavailable Rey Tay MD Unavailable Rocky Zepeda DO Unavailable Philip Dumont MD Unavailable [phone] Encounter Details Date Type Department Care Team (Late st Contact Info) Description 05/23/2020 [facility] Advice [address] [address] Marija Edgar, ARLENE REHABILITATION CONSULTANT Social History Tobacco Use Types Packs/Day Years [...] COVID-19? No / Unsure 05/12/2020 9:03 AM HVAC TECHNICIAN RESIDENTIAL documented as of this encounter Plan of Treatment Upcoming Encounters Date Type Department Care Team (Late st Contact Info) Description 11/01/2023 8:[address] [facility] Imaging [address] [place] [address] Lauren Claudio PA-C [address] [place], [place] [phone] 11/03/2023 8:00 AM CDT Office Visit [address] [phone] Valery Veronica PA-C 909 [place] [address] 11/29/2023 8:00 AM CDT Office Visit [facility] [address] [place] [phone] Esha Grimm PA-C [address] [place] [phone] 12/19/2023 11:30 AM CDT Hospital Encounter [address] [phone] Rocky Zepeda DO 500 [place], [place] [address]85 12/19/2023 11:30 AM CDT - 12/19/2023 12:00 PM CDT Surgery [address] [phone] Rocky Zepeda DO 500 [place] [address] Esophagoscopy, gastroscopy, duodenoscopy (EGD), combined 01/02/2024 8:00 AM CDT Office Visit [facility] [address] [place] [address] Lauren Claudio PA-C [address] [place] [address] Kelli Perez MD [address] [place] [address] Scheduled Procedures Name Priority Associated Diagnoses Date/Ti wy ESOPHAGOGASTRODUODENOSCOPY Eosinophilic esophagitis Esophageal dysphagia 12/19/2023 11:30 AM CDT documented as of this encounter Visit Diagnoses Not on filedocumented in this encounter Additional Health Concerns Infection Onset Date Last Indicated Resolved Time Rule Out COVID-19 07/30/2020 07/30/2020 07/30/2020 7:11 PM HVAC TECHNICIAN RESIDENTIAL Rule Out COVID-19 08/30/2020 08/30/2020 08/30/2020 5:05 PM HVAC TECHNICIAN RESIDENTIAL Rule Out COVID-19 09/24/2020 09/24/2020 09/24/2020 9:24 AM CDT Rule Out COVID-19 11/05/2020 11/05/2020 11/06/2020 1:09 PM CDT Rule Out COVID-19 05/11/2021 05/11/2021 05/13/2021 10:18 AM CDT Rule Out COVID-19 07/13/2021 07/13/2021 07/14/2021 3:04 PM HVAC TECHNICIAN RESIDENTIAL Rule Out COVID-19 07/18/2021 07/18/2021 07/20/2021 1:56 PM HVAC TECHNICIAN RESIDENTIAL COVID-19 07/18/2021 07/18/2021 08/08/2021 11:3 9 PM HVAC TECHNICIAN RESIDENTIAL Rule Out COVID-19 12/18/2021 12/18/2021 12/19/2021 11:34 AM CDT Rule Out COVID-19 02/24/2022 02/24/2022 02/25/2022 1:08 PM CDT Rule Out COVID-19 04/26/2022 04/26/2022 04/26/2022 6:47 AM CDT Rule Out COVID-19 05/17/2022 05/17/2022 05/17/2022 10:20 PM HVAC TECHNICIAN RESIDENTIAL Rule Out COVID-19 06/09/2022 06/09/2022 06/09/2022 9:35 AM HVAC TECHNICIAN RESIDENTIAL COVID-19 06/09/2022 06/09/2022 06/30/2022 11:4 1 PM HVAC TECHNICIAN RESIDENTIAL Rule Out COVID-19 11/10/2022 11/10/2022 11/11/2022 12:17 PM CDT Rule Out COVID-19 03/07/2023 03/07/2023 03/07/2023 1:20 PM CDT Assessment Noted Time PHQ-9 Depression Total Score: 6 08/28/19 7:05 AM HVAC TECHNICIAN RESIDENTIAL documented as of this encounter Care Teams Financial Aid Advisor Relationship Specialty Start Date End Date Marija Edgar APRN REHABILITATION CONSULTANT [address] [place] [address] PCP - General Nurse Practitioner 04/30/20 04/14/23 Esha Grimm PA-C [address] [place] [phone] PCP - General Family Medicine 05/04/23 Lita Osegurea Personal Advocate & Liaison (PAL) 02/28/20 03/27/23 Rakesh Cid PA-C [address] [place] [address] Assigned PCP 03/02/20 06/07/20 Chanelle Mccann APRN CNM [address] [place] [address] Assigned OBGYN Provider 05/02/2005/09 Lesley Moody, W Community Health Worker 05/30/2005/12 Kyara De La Fuente, RN Specialty Gas Booster Engineer Neurology 06/04/20 03/05/21 Marija Edgar APRN REHABILITATION CONSULTANT [address] [place] [address] Assigned PCP 06/08/20 04/29/23 Mynor Broussard MD [address] [place] [address] Assigned Surgical Provider 06/01/20 11/28/21 Keisha Dotson MD 909 [place], [place] 646075 Assigned Neuroscience Provider 06/04/20 04/01/23 Mary Mejia Financial Resource Worker 08/07/20 08/21/20 Stacey Briones, [facility] Lead Gas Booster Engineer Primary Care - CC 08/11/2012/30 Lesley Moody, [...] 02/09/21 Diana Desir, [facility] [address] [place] [address] Pharmacist Pharmacist 04/17/21 Rain Galaviz PA-C [address] [place] [address] [place] [address] Physician Power Line Installer And Repairer Dermatology 04/28/21 Summer Lara MD [address] [place] [address] Assigned OBGYN Provider 05/10/2105/23 Summer Lara MD [address] [facility] [place] [address] Assigned OBGYN Provider 05/31/21 Summer Lara MD [address] [facility] [place] [address] Assigned OBGYN Provider 05/24/2105/30 Tavia Wyatt MD [address] [facility] [place] [address] Dermatology 07/14/21 Johnny Murillo MD [address] [place] [address] Assigned Musculoskeletal Provider 08/30/21 03/17/22 Erica Farrell APRN REHABILITATION CONSULTANT [address] [facility] [address] [place] [address] Nurse Practitioner Cardiovascular Disease 09/09/21 Teresita Bean [facility] [address] [place] [address] Pharmacist Pharmacist 09/24/21 09/29/21 Tavia Wyatt MD Assigned Surgical Provider 11/29/21 05/07/22 Diana Desir, [facility] [address] [place] [address] Assigned MTM Pharmacist 01/02/22 Rich Barrett MD [address] [address] Physician Ophthalmology 01/21/22 Neil Kent MD 500 [place] [address] Dermatology 02/24/22 Roney Story DPM [address] [address] Assigned Musculoskeletal Provider 03/20/22 08/13/22 Erica Farrell APRN REHABILITATION CONSULTANT 1700 [place] [address] Assigned Heart and Vascular Provider 04/03/22 04/16/22 Daina Desir, [facility] [address] [place] [address] Assigned MTM Pharmacist 04/07/22 Jelena David OD [address] [place] [address] Assigned Surgical Provider 05/08/22 10/08/22 Galo Burrell MD Assigned Heart and Vascular Provider 04/17/22 06/11/22 Livan Sharif MD [address] [place] [address] Cardiovascular Disease 05/14/22 Livan Sharif MD [address], [address] [place] [address] Assigned Heart and Vascular Provider 06/12/22 07/23/22 Catherine Cm MD [address] [place] [address] Cardiovascular Disease 07/21/22 Valery Veronica, PAUcheC [address] [place] [address] [phone] Physician Power Line Installer And Repairer Dermatology 07/21/22 Catherine Cm MD [address] [place] [address] Assigned Heart and Vascular Provider 07/24/22 11/05/22 Johnny Murillo MD [facility] [address] 394734 Assigned Musculoskeletal Provider 08/14/22 10/08/22 Brea Quinn APRN REHABILITATION CONSULTANT [address] [place] [address] 734455 Nurse Practitioner Dermatology 09/21/22 Brea Quinn, CORRUGATOR MACHINE OPERATOR REHABILITATION CONSULTANT 6401 [facility] [place] [facility] [place] [address] Assigned Surgical Provider 10/09/22 [place] [address] [facility] 300 [place] [address] Assigned Musculoskeletal Provider 10/09/22 Livan Sharif MD [address], [facility] [address] [place] [address] Assigned Heart and Vascular Provider 11/06/22 11/12/22 Catherine Cm MD [address] [place] [address] Assigned Heart and Vascular Provider 11/13/22 05/27/23 JuanSydnie malik, RN Personal Advocate & Liaison (PAL) Family Medicine 03/28/23 07/31/23 Alfonso Renteria MD 5775 [facility] 200 [place] [address] Assigned Neuroscience Provider 04/02/23 Cheng Todd PA-C [address] [place] [address] Assigned PCP 04/30/23 07/15/23 Radha Lomeli APRN REHABILITATION CONSULTANT [address] [place] [address] Assigned Heart and Vascular Provider 05/28/23 Jelena David OD [address] [place] [address] Ophthalmology 06/15/23 Pao Joseph, RN Personal Advocate & Liaison (PAL) Nurse 08/01/23 Esha Grimm PA-C [address] [place] [phone] Assigned PCP 07/16/23 Valery Veronica PA-C 909 [place], [place] 259585 Physician Power Line Installer And Repairer Dermatology 09/19/23 Rey Tay MD [address] [place] [address] 760555 Gastroenterology 09/20/23 Rocky Zepeda DO [address] [place] [address] Physician Gastroenterology 09/20/23 Philip Dumont MD [address] [place] [address] 617065 Physician Ophthalmology 09/22/23 documented as of this encounter
--- OUTSIDE RECORDS SUMMARY | 2023-10-28 16:49 | XMS_ITS | Encounter Summary ---
Author Name Unknown Organization [facility] Address [address] [place] [address] Care Team Providers Care Pants Closer Name Role Phone Rakesh Cid PA-C Primary Care Provider Lita Oseguera Unavailable Unavailable Rakesh Cid PA-C Unavailable + [phone] Lita Oseguera Unavailable Unavailable Marija Edgar APRN PRODUCTION OPERATIONS INSPECTOR Primary Care Provider Stacie marquis SiobhanChanelle STAND UP COMEDIAN CNM Unavailab le Lesley Moody CHW Unavailable [phone] Kyara De La Fuente RN Unavailable [phone] Marija Edgar APRN PRODUCTION OPERATIONS INSPECTOR Unavailable Unavail able Mynor Broussard MD Unavailable [phone] Keisha Dotson MD Unavailable Mary Mejia Unavailable Unavailable Stacey Briones PELT INSPECTOR Unavailable [phone] Lesley Moody CHW Unavailable Mary Mejia Unavailable Unavailable Lita Oseguera Unavailable Unavailable Galo Burrell MD Unavailable Unavailable Cristina Wood Unavailable Lesley Moody CHW Unavailable Meredith Bedoya Unavailable Unavailable Cristina Wood Unavailable ThangDiana [facility] Unavailable [phone] Rain Galaviz-C Unavailable [phone] Summer Lara MD Unavailable [phone] Summer Lara MD Unavailable +[phone] Summer Lara MD Unavailable +[phone] Tavia Wyatt MD Unavailable Unavailable Johnny Murillo MD Unavailable +[phone] Erica Farrell APRN PRODUCTION OPERATIONS INSPECTOR Unavailable + Teresita Bean [facility] Unavailable Tavia Wyatt MD Unavailable Unavailable ThangDiana Stanislav [facility] Unavailable [phone] Rich Barrett MD Unavailable [phone] Neil Kent MD Unavailable Roney Story DPM Unavailable Erica Farrell APRN PRODUCTION OPERATIONS INSPECTOR Unavailable + DesirKendrickDiana T [facility] Unavailable [phone] Frankie Jelena Garcia OD Unavailable [phone] Galo Burrell MD Unavailable Unavailable Livan Sharif MD Unavailable + Livan Sharif MD Unavailable + Catherine Cm MD Unavailable + Valery Veronica-C Unavailable [phone] Catherine Cm MD Unavailable + Johnny Murillo MD Unavailable +[phone]- Brea Quinn APRN PRODUCTION OPERATIONS INSPECTOR Unavailable [phone] Brea Quinn STAND UP COMEDIAN PRODUCTION OPERATIONS INSPECTOR Unavailable Jose Francisco Johnson MD Unavailable Livan Sharif MD Unavailable Catherine Cm MD Unavailable + Sydnie Martinez RN Unavailable Unavailable Alfonso Renteria MD Unavailable [phone] Esha GrimmC Primary Care Provider Cheng Todd PA-C Unavailable Radha Lomeli STAND UP COMEDIAN PRODUCTION OPERATIONS INSPECTOR Unavailable [phone] Jelena David OD Unavailable [phone] Pao Joseph RN Unavailable Unavailable Esha Grimm PA-C Unavailable [phone] Valery Veronica-C Unavailable Rey Tay MD Unavailable Rocky Zepeda DO Unavailable Philip Dumont MD Unavailable [phone] Encounter Details Date Type Department Care Team (Late st Contact Info) Description 04/28/2020 MyC Medical Advice [address] [address] Rakesh Cid PA-C [address] [place] [address] Social History Tobacco Use [...] [facility] Imaging [address] [address] Lauren Claudio PA-C [address] [place], [place] [phone] 11/03/2023 8:00 AM CDT Office Visit [address] [phone] Valery Veronica, PAUcheC [address] [place] [address] 11/29/2023 8:00 AM CDT Office Visit [facility] [address] [place] [phone] Esha Grimm PA-C [address] [place] [phone] 12/19/2023 11:30 AM CDT Hospital Encounter [address] [phone] Rocky Zepeda DO [address] [place] [address] 12/19/2023 11:30 AM CDT - 12/19/2023 12:00 PM CDT Surgery [address] [phone] Rocky Zepeda, DO 500 [place], [place] 375755 Esophagoscopy, gastroscopy, duodenoscopy (EGD), combined 01/02/2024 8:00 AM CDT Office Visit [facility] [address] [place] [address] Lauren Claudio PA-C [id number] [place] [address] Kelli Perez MD [address] [place] [address] [phone] Scheduled Procedures Name Priority Associated Diagnoses Date/Ti co ESOPHAGOGASTRODUODENOSCOPY Eosinophilic esophagitis Esophageal dysphagia 12/19/2023 11:30 AM CDT documented as of this encounter Visit Diagnoses Not on filedocumented in this encounter Additional Health Concerns Infection Onset Date Last Indicated Resolved Time Rule Out COVID-19 07/30/2020 07/30/2020 07/30/2020 7:11 PM EDITOR AT LARGE Rule Out COVID-19 08/30/2020 08/30/2020 08/30/2020 5:05 PM EDITOR AT LARGE Rule Out COVID-19 09/24/2020 09/24/2020 09/24/2020 9:24 AM CDT Rule Out COVID-19 11/05/2020 11/05/2020 11/06/2020 1:09 PM CDT Rule Out COVID-19 05/11/2021 05/11/2021 05/13/2021 10:18 AM CDT Rule Out COVID-19 07/13/2021 07/13/2021 07/14/2021 3:04 PM EDITOR AT LARGE Rule Out COVID-19 07/18/2021 07/18/2021 07/20/2021 1:56 PM EDITOR AT LARGE COVID-19 07/18/2021 07/18/2021 08/08/2021 11:3 9 PM EDITOR AT LARGE Rule Out COVID-19 12/18/2021 12/18/2021 12/19/2021 11:34 AM CDT Rule Out COVID-19 02/24/2022 02/24/2022 02/25/2022 1:08 PM CDT Rule Out COVID-19 04/26/2022 04/26/2022 04/26/2022 6:47 AM CDT Rule Out COVID-19 05/17/2022 05/17/2022 05/17/2022 10:20 PM EDITOR AT LARGE Rule Out COVID-19 06/09/2022 06/09/2022 06/09/2022 9:35 AM EDITOR AT LARGE COVID-19 06/09/2022 06/09/2022 06/30/2022 11:4 1 PM EDITOR AT LARGE Rule Out COVID-19 11/10/2022 11/10/2022 11/11/2022 12:17 PM CDT Rule Out COVID-19 03/07/2023 03/07/2023 03/07/2023 1:20 PM CDT Assessment Noted Time PHQ-9 Depression Total Score: 12 020 2:40 PM CDT documented as of this encounter Care Teams Pants Closer Relationship Specialty Start Date End Date Rakesh Cid PA-C PCP - General Physician Truss Assembler - Medical 05/14/19 04/29/20 Marija Edgar APRN CNP 98492 [address] [address] PCP - General Nurse Practitioner 04/30/20 04/14/23 Esha Grimm PA-C 47299 [facility] [place] [phone] PCP - General Family Medicine 05/04/23 Lita Oseguera Personal Advocate & Liaison (PAL) 02/28/20 03/27/23 Rakesh Cid PA-C 79518 [address] [address] Assigned PCP 03/02/20 06/07/20 Lita Oseguera Personal Advocate & Liaison (PAL) 04/07/20 04/29/20 Chanelle Mccann APRN CNM [address] [address] [facility] 200 [place] [address] Assigned OBGYN Provider 05/02/2005/09 Lesley Moody, CHW Community Health Worker 05/30/2005/12 Kyara De La Fuente, RN Specialty Manager Leasing Neurology 06/04/20 03/05/21 Marija Edgar APRN PRODUCTION OPERATIONS INSPECTOR [address]20 [facility] [address] Assigned PCP 06/08/20 04/29/23 Mynor Broussard MD 6363 [facility] 500 [place] [address] Assigned Surgical Provider 06/01/20 11/28/21 Keisha Dotson MD 909 [place] [address] Assigned Neuroscience Provider 06/04/20 04/01/23 Mary Mejia Financial Resource Worker 08/07/20 08/21/20 Stacey Briones, PELT INSPECTOR Lead Manager Leasing Primary Care - CC 08/11/2012/30 Lesley Moody, CHW Community Health Worker 08/11/2010/01 Mary Mejia Financial Resource Worker 09/02/20 10/06/20 Lita Oseguera Personal Advocate & Liaison (PAL) Family Medicine 09/10/20 09/21/20 Galo Burrell MD Assigned Heart and Vascular Provider 10/05/20 04/02/22 Cristina Wood Financial Resource Worker 10/07/20 10/14/20 Lesley Moody, [facility] Community Health Worker 10/23/2012/30 Meredith Bedoya Financial Resource Worker 10/23/20 11/23/20 Cristina Wood Financial Resource Worker 02/09/21 02/09/21 Diana Desir, [facility] 3033 [place] [address] Pharmacist Pharmacist 04/17/21 Rain Galaviz PA-C [address] [place] [address] DR [place], [place] [phone] Physician Truss Assembler Dermatology 04/28/21 Summer Lara MD [address] [place] [address] [phone] Assigned OBGYN Provider 05/10/2105/23 Summer Lara MD [address] [place] [address] [phone] Assigned OBGYN Provider 05/31/21 Summer Lara MD [address] [place] [address] [phone] Assigned OBGYN Provider 05/24/2105/30 Tavia Wyatt MD [address] [place] [address] Dermatology 07/14/21 Johnny Murillo MD [address] [place] [address] Assigned Musculoskeletal Provider 08/30/21 03/17/22 Erica Farrell APRN PRODUCTION OPERATIONS INSPECTOR [address] [place] [address] Nurse Practitioner Cardiovascular Disease 09/09/21 Teresita Bean, [facility] [address] [place], [place] [phone] Pharmacist Pharmacist 09/24/21 09/29/21 Tavia Wyatt MD Assigned Surgical Provider 11/29/21 05/07/22 [facility] 3033 [place] [address] Assigned MTM Pharmacist 01/02/22 Rich Barrett MD 516 [facility] 9A [place], [place] 449815 Physician Ophthalmology 01/21/22 Neil Kent MD 500 [place] [address] Dermatology 02/24/22 Roney Story DPM 22444 [facility] 300 [place] [address] Assigned Musculoskeletal Provider 03/20/22 08/13/22 Erica Farrell, ARLENE PRODUCTION OPERATIONS INSPECTOR 1700 [place] [address] Assigned Heart and Vascular Provider 04/03/22 04/16/22 Diana Desir, [facility] 3033 [place] [address] Assigned MTM Pharmacist 04/07/22 Jelena David OD [address] [place] [address] Assigned Surgical Provider 05/08/22 10/08/22 Galo Burrell MD Assigned Heart and Vascular Provider 04/17/22 06/11/22 Livan Sharif MD [address] [place] [address] Cardiovascular Disease 05/14/22 Livan Sharif MD [address] [place] [address] Assigned Heart and Vascular Provider 06/12/22 07/23/22 Catherine Cm MD [address] [place] [address] Cardiovascular Disease 07/21/22 Valery Veronica, PAUcheC 909 [place] [address] Physician Truss Assembler Dermatology 07/21/22 Catherine Cm MD [address] [place] [address] Assigned Heart and Vascular Provider 07/24/22 11/05/22 Johnny Murillo MD [address] [address] Assigned Musculoskeletal Provider 08/14/22 10/08/22 Brea Quinn APRN PRODUCTION OPERATIONS INSPECTOR [address] [place] [address] Nurse Practitioner Dermatology 09/21/22 Brea Quinn APRN PRODUCTION OPERATIONS INSPECTOR [address] [place] [address] [place] [address] Assigned Surgical Provider 10/09/22 [place] [address] [facility] 300 [place] [address] Assigned Musculoskeletal Provider 10/09/22 Livan Sharif MD 6405 [facility] [address] [place] [address] Assigned Heart and Vascular Provider 11/06/22 11/12/22 Catherine Cm MD 6405 [facility] [address] [place] 901495 Assigned Heart and Vascular Provider 11/13/22 05/27/23 Sydnie Martinez RN Personal Advocate & Liaison (PAL) Family Medicine 03/28/23 07/31/23 Alfonso Renteria MD 5775 [facility] 200 [place], [place] 283006 Assigned Neuroscience Provider 04/02/23 Cheng Todd PA-C [address] [place], [place] [phone] Assigned PCP 04/30/23 07/15/23 Radha Lomeli APRN PRODUCTION OPERATIONS INSPECTOR 6405 [facility] [address] [place] [address] Assigned Heart and Vascular Provider 05/28/23 [place] [address] [place] [address] [place] [address] MD Ophthalmology 06/15/23 Pao Joseph, VJ Personal Advocate & Liaison (PAL) Nurse 08/01/23 Esha Grimm PA-C [address] [place] [address]170383 Assigned PCP 07/16/23 Valery Veronica PA-C [address] [place] [address] 474665 Physician Truss Assembler Dermatology 09/19/23 Rey Tay MD [address] [place] [address] 959335 Gastroenterology 09/20/23 Rocky Zepeda DO [address] [place] [address] [phone] Physician Gastroenterology 09/20/23 Philip Dumont MD [address] [place] [place] [address] 262405 Physician Ophthalmology 09/22/23 documented as of this encounter
--- OUTSIDE RECORDS SUMMARY | 2023-10-28 16:49 | XMS_ITS | Encounter Summary ---
Author Name Unknown Organization [facility] Address [address] [place] [address] Care Team Providers Care Agency Operator Name Role Phone Rakesh Cid PA-C Unavailable + Rakesh Cid PA-C Primary Care Provider Lita Oseguera Unavailable Unavailable Rakesh Cid PA-C Unavailable + Isaura Lamar RN Unavailable Unavailable Lita Oseguera Unavailable Unavailable Marija Edgar APRN RADIO INSTALLER Primary Care Provider Chanelle Gutierrez APRN CNM Unavailab le Lesley Moody CHW Unavailable [phone] Kyara De La Fuente RN Unavailable [phone] Marija Edgar APRN RADIO INSTALLER Unavailable Unavail able Mynor Broussard MD Unavailable [phone] Keisha Dotson MD Unavailable [phone] Mary Mejia Unavailable Unavailable Stacey Briones [employer]RE[employer] OFFICER [place] [employer] Unavailable [phone] Lesley Moody CHW Unavailable [phone] Mary Mejia Unavailable Unavailable Lita Oseguera Unavailable Unavailable Galo Burrell MD Unavailable Unavailable Cristina Wood Unavailable Lesley Moody [facility] Unavailable Meredith Bedoya Unavailable Unavailable Tere Woodie Unavailable Diana Desir [facility] Unavailable [phone] Rain Galaviz PA-C Unavailable Summer Lara MD Unavailable +[phone] Summer Lara MD Unavailable + [phone] Summer Lara MD Unavailable +[phone] Tavia Wyatt MD Unavailable Unavailable Johnny Murillo MD Unavailable +1- Erica Farrell APRN RADIO INSTALLER Unavailable + Teresita Bean [facility] Unavailable [phone] Tavia Wyatt MD Unavailable Unavailable Diana Desir [facility] Unavailable + [phone] Rich Barrett MD Unavailable [phone] Neil Kent MD Unavailable Roney Story DPM Unavailable [phone] Erica Farrell SHIFT SUPERINTENDENT CAUSTIC CRESYLATE RADIO INSTALLER Unavailable + Diana Desir [facility] Unavailable +[phone] Jelena David OD Unavailable Galo Burrell MD Unavailable Unavailable Livan Sharif MD Unavailable + Livan Sharif MD Unavailable + Catherine Cm MD Unavailable + Valery Veronica PA-C Unavailable [phone] Catherine Cm MD Unavailable + Johnny Murillo MD Unavailable [phone] Brea Quinn SHIFT SUPERINTENDENT CAUSTIC CRESYLATE RADIO INSTALLER Unavailable Brea Quinn SHIFT SUPERINTENDENT CAUSTIC CRESYLATE RADIO INSTALLER Unavailable Jose Francisco Johnson MD Unavailable Livan Sharif MD Unavailable Catherine Cm MD Unavailable + Sydnie Martinez RN Unavailable Unavailable Alfonso Renteria MD Unavailable + [phone] Esha Grimm PA-C Primary Care Provider Cheng Todd PA-C Unavailable [phone] Radha Lomeli SHIFT SUPERINTENDENT CAUSTIC CRESYLATE RADIO INSTALLER Unavailable [phone] Frankie Jelena Templetone OD Unavailable Pao Joseph RN Unavailable Unavailable Esha Grimm PA-C Unavailable [phone] Valery Veronica PA-C Unavailable [phone] Rey Tay MD Unavailable Rocky Zepeda DO Unavailable Philip Dumont MD Unavailable [phone] Encounter Details Date Type Department Care Team (Late st Contact Info) Description 02/27/[address], [address] [place] [address] Rakesh Cid PA-C [address] [place] [address] Social History Tobacco Use Types [...] message?: Yes at Home number on file [phone] (home) Violet Jeffrey Patient Claim Taker documented in this encounter Plan of Treatment Upcoming Encounters Date Type Department Care Team (Late st Contact Info) Description 11/01/2023 8:00 AM CDT Appointment [facility] Imaging [address] [place] [address] Lauren Claudio PA-C [address] [place] [address] 11/03/2023 8:00 AM CDT Office Visit [address] [phone] Valery Veronica PA-C 909 [place] [address] 11/29/2023 8:00 AM CDT Office Visit [facility] [address] [place] [phone] Esha Grimm PA-C [address] [place] [phone] 12/19/2023 11:30 AM CDT Hospital [facility] [place] [address] 5th [place] [phone] Rocky Zepeda DO 500 [place] [address] 12/19/2023 11:30 AM CDT - 12/19/2023 12:00 PM CDT Surgery [facility] OR [address] [phone] Rocky Zepeda DO 500 [place], [place] 866855 Esophagoscopy, gastroscopy, duodenoscopy (EGD), combined 01/02/2024 8:00 AM CDT Office Visit [address] [phone] Lauren Claudio PA-C [address] [place], [place] [phone] Kelli Perez MD [address] [place] [address] 067194 Scheduled Procedures Name Priority Associated Diagnoses Date/Ti fl ESOPHAGOGASTRODUODENOSCOPY Eosinophilic esophagitis Esophageal dysphagia 12/19/2023 11:30 AM CDT documented as of this encounter Visit Diagnoses Not on filedocumented in this encounter Additional Health Concerns Infection Onset Date Last Indicated Resolved Time Rule Out COVID-19 07/30/2020 07/30/2020 07/30/2020 7:11 PM TOMBSTONE SETTER Rule Out COVID-19 08/30/2020 08/30/2020 08/30/2020 5:05 PM TOMBSTONE SETTER Rule Out COVID-19 09/24/2020 09/24/2020 09/24/2020 9:24 AM CDT Rule Out COVID-19 11/05/2020 11/05/2020 11/06/2020 1:09 PM CDT Rule Out COVID-19 05/11/2021 05/11/2021 05/13/2021 10:18 AM CDT Rule Out COVID-19 07/13/2021 07/13/2021 07/14/2021 3:04 PM TOMBSTONE SETTER Rule Out COVID-19 07/18/2021 07/18/2021 07/20/2021 1:56 PM TOMBSTONE SETTER COVID-19 07/18/2021 07/18/2021 08/08/2021 11:3 9 PM TOMBSTONE SETTER Rule Out COVID-19 12/18/2021 12/18/2021 12/19/2021 11:34 AM CDT Rule Out COVID-19 02/24/2022 02/24/2022 02/25/2022 1:08 PM CDT Rule Out COVID-19 04/26/2022 04/26/2022 04/26/2022 6:47 AM CDT Rule Out COVID-19 05/17/2022 05/17/2022 05/17/2022 10:20 PM TOMBSTONE SETTER Rule Out COVID-19 06/09/2022 06/09/2022 06/09/2022 9:35 AM TOMBSTONE SETTER COVID-19 06/09/2022 06/09/2022 06/30/2022 11:4 1 PM TOMBSTONE SETTER Rule Out COVID-19 11/10/2022 11/10/2022 11/11/2022 12:17 PM CDT Rule Out COVID-19 03/07/2023 03/07/2023 03/07/2023 1:20 PM CDT Assessment Noted Time PHQ-9 Depression Total Score: 11 02/20/2 020 1:14 PM CDT documented as of this encounter Care Teams Agency Operator Relationship Specialty Start Date End Date Rakesh Cid PA-C [address] [place] [address] PCP - General Physician Patcher Bowling Ball - Medical 05/14/19 04/29/20 Marija Edgar APRN RADIO INSTALLER PCP - General Nurse Practitioner 04/30/20 04/14/23 Esha Grimm PA-C [address] [place] [phone] PCP - General Family Medicine 05/04/23 Rakesh Cid PA-C [address] [place] [address] Assigned PCP 05/06/19 03/01/20 Lita Oseguera Personal Advocate & Liaison (PAL) 02/28/20 03/27/23 Rakesh Cid PA-C [address] [place] [address] Assigned PCP 03/02/20 06/07/20 Isaura Lamar, RN Personal Advocate & Liaison (PAL) Family Practice 04/03/20 04/06/20 Lita Oseguera Personal Advocate & Liaison (PAL) 04/07/20 04/29/20 Chanelle Mccann APRN CNM [address] [address] Assigned OBGYN Provider 05/02/2005/09 Lesley Moody, CHW Community Health Worker 05/30/2005/12 Kyara De La Fuente, RN Specialty Employee Relation Manager Neurology 06/04/20 03/05/21 Marija Edgar APRN RADIO INSTALLER Assigned PCP 06/08/20 04/29/23 Mynor Broussard MD [address] 2995[address] Assigned Surgical Provider 06/01/20 11/28/21 Keisha Dotson MD 909 [place], [place] 933825 Assigned Neuroscience Provider 06/04/20 04/01/23 Mary Mejia Financial Resource Worker 08/07/20 08/21/20 Stacey Briones, [facility] Lead Employee Relation Manager Primary Care - CC 08/11/2012/30 Lesley Moody, [facility] Community Health Worker 08/11/2010/01 Mary Mejia Financial Resource Worker 09/02/20 10/06/20 Lita Oseguera Personal Advocate & Liaison (PAL) Family Medicine 09/10/20 09/21/20 Galo Burrell MD Assigned Heart and Vascular Provider 10/05/20 04/02/22 Cristina Wood Financial Resource Worker 10/07/20 10/14/20 Lesley Moody, [facility] Community Health Worker 10/23/2012/30 Meredith Bedoya Financial Resource Worker 10/23/20 11/23/20 Cristina Wood Financial Resource Worker 02/09/21 02/09/21 Diana Desir, [facility] 3033 [place], [place] 806766 Pharmacist Pharmacist 04/17/21 Rain Galaviz PA-C [address] [place] [address] DR [address] [facility] [address] Physician Patcher Bowling Ball Dermatology 04/28/21 Summer Lara MD [address] [place] [address] Assigned OBGYN Provider 05/10/2105/23 Summer Lara MD [address] [place] [address] Assigned OBGYN Provider 05/31/21 Summer Lara MD [address] [place] [address] Assigned OBGYN Provider 05/24/2105/30 Tavia Wyatt MD [address] [place] [address] Dermatology 07/14/21 Johnny Murillo MD [address] [place] [address] Assigned Musculoskeletal Provider 08/30/21 03/17/22 Erica Farrell APRN RADIO INSTALLER [address] [facility] [address] [place] [address] Nurse Practitioner Cardiovascular Disease 09/09/21 Teresita Bean, [facility] [address] [place] [address] Pharmacist Pharmacist 09/24/21 09/29/21 Tavia Wyatt MD Assigned Surgical Provider 11/29/21 05/07/22 Diana Desir, [facility] 3033 [place] [address] Assigned MTM Pharmacist 01/02/22 Rich Barrett MD [address] 254905 Physician Ophthalmology 01/21/22 Neil Kent MD 500 [place], [place] 046875 Dermatology 02/24/22 Roney Story DPM 87[address] [facility] [address] [place], [place] 009787 Assigned Musculoskeletal Provider 03/20/22 08/13/22 Erica Farrell APRN RADIO INSTALLER 1700 [place] [address] Assigned Heart and Vascular Provider 04/03/22 04/16/22 Diana Desir, [facility] 3033 [place] [address] Assigned MTM Pharmacist 04/07/22 Jelena David OD [address] [facility] [place] [address] Assigned Surgical Provider 05/08/22 10/08/22 Galo Burrell MD Assigned Heart and Vascular Provider 04/17/22 06/11/22 Livan Sharif MD [address] [place] [address] Cardiovascular Disease 05/14/22 Livan Sharif MD [address] [place] [address] Assigned Heart and Vascular Provider 06/12/22 07/23/22 Catherine Cm MD [address] [place] [address] Cardiovascular Disease 07/21/22 Valery Veronica, PA-C [address] [place] [address] 034365 Physician Patcher Bowling Ball Dermatology 07/21/22 Catherine Cm MD [address] [place] [address] Assigned Heart and Vascular Provider 07/24/22 11/05/22 Johnny Murillo MD [facility] [address] 803854 Assigned Musculoskeletal Provider 08/14/22 10/08/22 Brea Quinn APRN RADIO INSTALLER [address] [place] [address] 160085 Nurse Practitioner Dermatology 09/21/22 Brea Quinn APRN RADIO INSTALLER [address] [place] [address] [place] 118912 Assigned Surgical Provider 10/09/22 [place] [address] [place] [address] [place] [address] Assigned Musculoskeletal Provider 10/09/22 Livan Sharif MD [address] [place], [place] 428765 Assigned Heart and Vascular Provider 11/06/22 11/12/22 Catherine Cm MD [address] [place] [address] Assigned Heart and Vascular Provider 11/13/22 05/27/23 Sydnie Martinez RN Personal Advocate & Liaison (PAL) Family Medicine 03/28/23 07/31/23 Alfonso Renteria MD 5775 [facility] 200 [place] [address] Assigned Neuroscience Provider 04/02/23 Cheng Todd PA-C [address] [place] [address] Assigned PCP 04/30/23 07/15/23 Radha Lomeli, ARLENE RADIO INSTALLER [address] [place] [address] Assigned Heart and Vascular Provider 05/28/23 Jelena David OD [address] [facility] [place] [address] Ophthalmology 06/15/23 Pao Joseph RN Personal Advocate & Liaison (PAL) Nurse 08/01/23 Esha Grimm PA-C [address] [place] [address]34[address]83 Assigned PCP 07/16/23 Valery Veronica PA-C [address] [place] [address] 789435 Physician Patcher Bowling Ball Dermatology 09/19/23 Rey Tay MD [address] [place] [address] 140445 Gastroenterology 09/20/23 Rocky Zepeda DO [address] [place] [address] 677785 Physician Gastroenterology 09/20/23 Philip Dumont MD [address] [place] [address] 914925 Physician Ophthalmology 09/22/23 documented as of this encounter
--- OUTSIDE RECORDS SUMMARY | 2023-10-28 16:49 | XMS_ITS | Encounter Summary ---
Author Name Unknown Organization [facility] Address [address] [place] [address] Care Team Providers Care Office Manager Executive Assistant Name Role Phone Lita Oseguera Unavailable Unavailable Rakesh Cid PA-C Unavailable [phone] Marija Edgar APRN PROFESSOR OF MUSICOLOGY Primary Care Provider Chanelle Gutierrez EXTERMINATOR HELPER CNM Unavailab le Lesley Moody CHW Unavailable Kyara De La Fuente RN Unavailable [phone] Marija Edgar APRN PROFESSOR OF MUSICOLOGY Unavailable Unavail able Mynor Broussard MD Unavailable [phone] Keisha Dotson MD Unavailable [phone] Mary Mejia Unavailable Unavailable Stacey Briones BILINGUAL SALES REPRESENTATIVE Unavailable [phone] Lesley Moody CHW Unavailable [phone] Mary Mejia Unavailable Unavailable Lita Oseguera Unavailable Unavailable Galo Burrell MD Unavailable Unavailable Cristina Wood Unavailable Lesley Moody CHW Unavailable [phone] Meredith Bedoya Unavailable Unavailable Cristina Wood Unavailable Diana Desir [facility] Unavailable [phone] Anastacia Rain Paredes PA-C Unavailable [phone] Summer Lara MD Unavailable [phone] Summer Lara MD Unavailable [phone] Summer Lara MD Unavailable [phone] Tavia Wyatt MD Unavailable Unavailable Johnny Murillo MD Unavailable +[phone]- Erica Farrell EXTERMINATOR HELPER PROFESSOR OF MUSICOLOGY Unavailable + VikasTeresita [facility] Unavailable Tavia Wyatt MD Unavailable Unavailable Desir Diana [place] [facility] Unavailable [phone] Rich Barrett MD Unavailable [phone] Neil Kent MD Unavailable Roney Story DPM Unavailable [phone] Erica Farrell EXTERMINATOR HELPER PROFESSOR OF MUSICOLOGY Unavailable + Diana Desir [facility] Unavailable [phone] Jelena David OD Unavailable [phone] Galo Burrell MD Unavailable Unavailable Livan Sharif MD Unavailable + Livan Sharif MD Unavailable + Catherine Cm MD Unavailable + Valery Veronica PA-C Unavailable [phone] Catherine Cm MD Unavailable + Johnny Murillo MD Unavailable +[phone]- Brea Quinn EXTERMINATOR HELPER PROFESSOR OF MUSICOLOGY Unavailable [phone] Brea Quinn APRN PROFESSOR OF MUSICOLOGY Unavailable [phone] Jose Francisco Johnson MD Unavailable + Livan Sharif MD Unavailable Catherine Cm MD Unavailable + Sydnie Martinez RN Unavailable Unavailable Alfonso Renteria MD Unavailable [phone] Esha Grimm PA-C Primary Care Provider [phone] Cheng Todd PA-C Unavailable [phone] Radha Lomeli APRN PROFESSOR OF MUSICOLOGY Unavailable Jelena David OD Unavailable Pao Joseph RN Unavailable Unavailable Esha GrimmC Unavailable [phone] Valery Veronica PA-C Unavailable [phone] Rey Tay MD Unavailable Rocky Zepeda DO Unavailable Philip Dumont MD Unavailable Reason for Visit * Reason Onset Date Comments Referral 05/19/2020 Encounter Details Date Type Department Care Team (Late st Contact Info) Description 05/19/2020 Telephone Earl TUBBS [facility] [address], [address] [place] [address] Unknown Referral Social History Tobacco [...] COVID-19? No / Unsure 05/12/2020 9:03 AM STOVE TENDER documented as of this encounter Miscellaneous Notes * Telephone Encounter - Jolene Mcpherson - 05/19/2020 2:02 PM CST [facility] Phone Message May a detailed message be left on voicemail: yes Reason for Call: Appointment Intake Referring Provider Name: Marija Edgar APRN CNP in FAMILY PRACTICE Diagnosis and/or Symptoms: History of Seizures Being referred to [facility]. Please review. Thanks. Action Taken: Other: [facility] Travel Screening: Not Applicable E TENDER documented in this encounter Plan of Treatment Upcoming Encounters Date Type Department Care Team (Late st Contact Info) Description 11/01/2023 8:00 AM CDT Appointment [facility] [address] [facility] [place] [address] Lauren Claudio PA-C [address] [place], [place] [phone] 11/03/2023 8:00 AM CDT Office Visit [address] [phone] Valery Veronica PA-C [address] [place] [address] 11/29/2023 8:00 AM CDT Office Visit [facility] [address] [place] [phone] Esha Grimm PA-C [address] [place] [phone] 12/19/2023 11:30 AM CDT Hospital Encounter [facility] [address] [facility] 5th [place] [phone] Rocky Zepeda, [address] [place] [address] 12/19/2023 11:30 AM CDT - 12/19/2023 12:00 PM CDT Surgery [facility] [address] [facility] [address] 5th [place] [phone] Rocky Zepeda DO [address] [place] [address] Esophagoscopy, gastroscopy, duodenoscopy (EGD), combined 01/02/2024 8:00 AM CDT Office Visit [facility] [address] [place] [phone] Lauren Claudio PA-C [address] [place] [address] Kelli Perez MD [address] [place] [address] [phone] Scheduled Procedures Name Priority Associated Diagnoses Date/Ti ne ESOPHAGOGASTRODUODENOSCOPY Eosinophilic esophagitis Esophageal dysphagia 12/19/2023 11:30 AM CDT documented as of this encounter Visit Diagnoses Not on filedocumented in this encounter Additional Health Concerns Infection Onset Date Last Indicated Resolved Time Rule Out COVID-19 07/30/2020 07/30/2020 07/30/2020 7:11 PM STOVE TENDER Rule Out COVID-19 08/30/2020 08/30/2020 08/30/2020 5:05 PM STOVE TENDER Rule Out COVID-19 09/24/2020 09/24/2020 09/24/2020 9:24 AM CDT Rule Out COVID-19 11/05/2020 11/05/2020 11/06/2020 1:09 PM CDT Rule Out COVID-19 05/11/2021 05/11/2021 05/13/2021 10:18 AM CDT Rule Out COVID-19 07/13/2021 07/13/2021 07/14/2021 3:04 PM STOVE TENDER Rule Out COVID-19 07/18/2021 07/18/2021 07/20/2021 1:56 PM STOVE TENDER COVID-19 07/18/2021 07/18/2021 08/08/2021 11:3 9 PM STOVE TENDER Rule Out COVID-19 12/18/2021 12/18/2021 12/19/2021 11:34 AM CDT Rule Out COVID-19 02/24/2022 02/24/2022 02/25/2022 1:08 PM CDT Rule Out COVID-19 04/26/2022 04/26/2022 04/26/2022 6:47 AM CDT Rule Out COVID-19 05/17/2022 05/17/2022 05/17/2022 10:20 PM STOVE TENDER Rule Out COVID-19 06/09/2022 06/09/2022 06/09/2022 9:35 AM STOVE TENDER COVID-19 06/09/2022 06/09/2022 06/30/2022 11:4 1 PM STOVE TENDER Rule Out COVID-19 11/10/2022 11/10/2022 11/11/2022 12:17 PM CDT Rule Out COVID-19 03/07/2023 03/07/2023 03/07/2023 1:20 PM CDT Assessment Noted Time PHQ-9 Depression Total Score: 6 08/28/19 21 7:05 AM STOVE TENDER documented as of this encounter Care Teams Office Manager Executive Assistant Relationship Specialty Start Date End Date Marija Edgar APRN CNP [address] [place] [address] PCP - General Nurse Practitioner 04/30/20 04/14/23 Esha Grimm PA-C [address] [place] [phone] PCP - General Family Medicine 05/04/23 Lita Oseguera Personal Advocate & Liaison (PAL) 02/28/20 03/27/23 Rakesh Cid PA-C [address] [facility] [place] [address] Assigned PCP 03/02/20 06/07/20 Chanelle Mccann APRN CNM [address] [place], [address] [place] [address] Assigned OBGYN Provider 05/02/2005/09 Lesley Moody, CHW Community Health Worker 05/30/2005/12 Kyara De La Fuente, RN Specialty Ultrasonic Seaming Machine Operator Neurology 06/04/20 03/05/21 Marija Edgar APRN PROFESSOR OF MUSICOLOGY [address] [place] [address] Assigned PCP 06/08/20 04/29/23 Mynor Broussard MD [address] [facility] [address] [place] [address] Assigned Surgical Provider 06/01/20 11/28/21 Keisha Dotson MD [address] [place] [address] Assigned Neuroscience Provider 06/04/20 04/01/23 Mary Mejia Financial Resource Worker 08/07/20 08/21/20 Stacey Briones, [facility] Lead Ultrasonic Seaming Machine Operator Primary Care - CC 08/11/2012/30 [...] Desir, [facility] [address] [place] [address] Pharmacist Pharmacist 04/17/21 Rain Galaviz PA-C [address] [place] [address] [address] [place], [place] [phone] Physician Billing Control Clerk Dermatology 04/28/21 Summer Lara MD [address] [place] [address] [id number] Assigned OBGYN Provider 05/10/2105/23 Summer Lara MD [address] [place] [address] [phone] Assigned OBGYN Provider 05/31/21 2 Summer Lara MD [address] [place] [address] [phone] Assigned OBGYN Provider 05/24/2105/30 Tavia Wyatt MD [address] [place] [address] Dermatology 1/4/22 Johnny Murillo MD [address] [place] [address] Assigned Musculoskeletal Provider 08/30/21 03/17/22 Erica Farrell APRN PROFESSOR OF MUSICOLOGY [address] [facility] [address] [place], [place] [address] Nurse Practitioner Cardiovascular Disease 09/09/21 Teresita Bean, [facility] [address] [place] [phone] Pharmacist Pharmacist 09/24/21 09/29/21 Tavia Wyatt MD Assigned Surgical Provider 11/29/21 05/07/22 [facility] [address] [place] [address] Assigned MTM Pharmacist 01/02/22 Rich Barrett MD [address] [facility] [address] [place], [place] [phone] Physician Ophthalmology 01/21/22 Neil Kent MD 500 [place] [address] Dermatology 02/24/22 Roney Story DPM [address] [facility] [address] [place] [address] Assigned Musculoskeletal Provider 03/20/22 08/13/22 Erica Farrell APRN PROFESSOR OF MUSICOLOGY [address] [place] [address] Assigned Heart and Vascular Provider 04/03/22 04/16/22 Diana Desir, [facility] [address] [place] [address] Assigned MTM Pharmacist 04/07/22 Jelena David OD [address] [facility] [place] [address] Assigned Surgical Provider 05/08/22 10/08/22 Galo Burrell MD Assigned Heart and Vascular Provider 04/17/22 06/11/22 Livan Sharif MD [address] [place] [address] Cardiovascular Disease 05/14/22 Livan Sharif MD [address] [place] [address] Assigned Heart and Vascular Provider 06/12/22 07/23/22 Catherine Cm MD [address] [place] [phone] Cardiovascular Disease 07/21/22 Valery Veronica PA-C [address] [place], [place] 0[address] Physician Billing Control Clerk Dermatology 07/21/22 Catherine Cm MD [address] [place] [phone] Assigned Heart and Vascular Provider 07/24/22 11/05/22 Johnny Murillo MD [address] [address] Assigned Musculoskeletal Provider 08/14/22 10/08/22 Brea Quinn APRN PROFESSOR OF MUSICOLOGY 500 [place] [address] Nurse Practitioner Dermatology 09/21/22 Bera Quinn APRN PROFESSOR OF MUSICOLOGY [facility] [place] [address] Assigned Surgical Provider 10/09/22 [place] [address] [address] Assigned Musculoskeletal Provider 10/09/22 Livan Sharif MD [address] [facility] [address] [place] [address] Assigned Heart and Vascular Provider 11/06/22 11/12/22 Catherine Cm MD [address] [place] [phone] [place] [address] Assigned Heart and Vascular Provider 11/13/22 05/27/23 Sydnie Martinez RN Personal Advocate & Liaison (PAL) Family Medicine 03/28/23 07/31/23 Alfonso Renteria MD [address] [facility] 200 [place], [place] 2047[address] Assigned Neuroscience Provider 04/02/23 Cheng Todd PA-C [address] [place], [place] [phone] Assigned PCP 04/30/23 07/15/23 Radha Lomeli APRN PROFESSOR OF MUSICOLOGY [address] [place], [place] 5340[address] Assigned Heart and Vascular Provider 05/28/23 Jelena David OD [address] [facility] [address] [place] [phone] MD Ophthalmology 06/15/23 Pao Joseph, VJ Personal Advocate & Liaison (PAL) Nurse 08/01/23 Esha Grimm PA-C [address] [place] [phone] Assigned PCP 07/16/23 Valery Vernoica PA-C [address] [place] [address] [phone] Physician Billing Control Clerk Dermatology 09/19/23 Rey Tay MD [address] [place] [address] [phone] Gastroenterology 09/20/23 Rocky Zepeda DO [address] [place] [address] [phone] Physician Gastroenterology 09/20/23 Philip Dumont MD [address] [place] [address]785 Physician Ophthalmology 09/22/23 documented as of this encounter
[2023-10-28 17:14] VITALS: BP 109/71; PULSE 78; O2SAT 98
[2023-10-28 17:15] VITALS: PULSE 78; O2SAT 99
[2023-10-28] MEDS: 0.9 % SODIUM CHLORIDE 1000 ml 1,000 ML IV (17:19)
[2023-10-28 17:30] VITALS: PULSE 74; O2SAT 98
[2023-10-28 17:44] LABS: Albumin* 4.8 g/dL (3.3-5.0); Chloride* 110 mmol/L (96-114)
[2023-10-28 17:45] VITALS: PULSE 71; O2SAT 100
[2023-10-28 17:45] LABS: Sodium* 141 mmol/L (135-149)
[2023-10-28 17:46] LABS: Creatinine* 0.7 mg/dL (0.5-1.5); Est. Creatinine Clearance* 117.01; Estimated Glomerular Filt Rate 125 ml/min
[2023-10-28 17:47] LABS: Alanine Aminotransferase* 29 U/L (4-35); Alkaline Phosphatase* 48 U/L (40-150); Anion Gap 5 mEq/L (7-15); Aspartate Amino Transferase* 27 U/L (12-35); Bilirubin Total* 0.7 mg/dL (0.1-1.5); Blood Urea Nitrogen* 15 mg/dL (5-24); Carbon Dioxide* 26 mmol/L (20-32); Glucose* 79 mg/dL (60-115); Lipase* 136 U/L (23-300); Total Protein* 8.7 g/dL (6.0-8.3)
[2023-10-28 17:48] LABS: Calcium* 9.4 mg/dL (8.4-10.6)
[2023-10-28 17:51] LABS: Basophils Absolute Auto 0.02 K/uL (0.00-0.30); Basophils Percent Auto 0.3 % (0.0-3.0); Eosinophils Absolute Auto 0.28 K/uL (0.00-0.50); Hematocrit 39.2 % (33.0-51.0); Hemoglobin* 12.8 gm/dL (12.0-16.0); Immature Granulocytes Abs Auto 0.01 K/uL (0.00-0.30); Immature Granulocytes Pct Auto 0.1 %; Lymphocytes Absolute Auto 2.57 K/uL (0.90-2.90); Lymphocytes Percent Auto 36.8 % (20-44); Mean Corpuscular HGB Conc 33 gm/dL (32-36); Mean Corpuscular Hemoglobin 27 pg (26-34); Mean Corpuscular Volume 81 fL (80-100); Neutrophils Absolute Auto 3.75 K/uL (1.7-7.0); Neutrophils Percent Auto 53.8 % (42.0-72.0); Platelet Count* 260 K/uL (140-440); RDW Coefficient of Variation % 12.1 % (11.5-15.5); Red Blood Count 4.83 m/uL (4.00-5.20); White Blood Count* 6.98 K/uL (4.50-11.00)
[2023-10-28 17:53] LABS: Slide Review Reflex No
[2023-10-28 17:54] LABS: C Reactive Protein* < 0.5 mg/dL (0.5-1.0)
[2023-10-28 17:57] LABS: D Dimer Quantitative* 0.19 ug/ml (0.00-0.50)
== END 2023-10-28 18:50 | disposition home or self-care (01) ==
PROVIDERS: Emergency Provider Family Medicine
DX: R07.9 Chest pain, unspecified (principal); K21.9 Gastro-esophageal reflux disease without esophagitis; R10.9 Unspecified abdominal pain
CPT/HCPCS: 36415; 71045; 80048; 80076; 83690; 85025; 85379; 86140; 93005; 99284; 99285; A9270; J7030

== ENCOUNTER 2024-01-07 17:10 | Emergency (ER) | payer MEDICAID, SELFPAY ==
[2024-01-07 17:14] VITALS: BP 121/72; PULSE 81; RESP 18; TEMP 37; O2SAT 100; BMI 29.9
--- NOTE | 2024-01-07 17:39 | ED.CHESTPAIN ---
HPI - Chest Pain General Time Seen by Provider: 17:40 Date Seen: 01/07/24 Chief Complaint: Chest Pain Stated Complaint: Chest pain Time Seen by Provider: 01/07/24 17:39 Source: patient and RN notes reviewed Mode of arrival: ambulatory Limitations: no limitations History of Present Illness HPI narrative: This 23-year-old female was brought in by [facility] ambulance for chest heaviness/pressure. Patient has a history of SVT, felt like her heart was racing starting around 3:00 p.m. today. She felt heaviness at that time. She has not been ill, no cough or cold symptoms. No respiratory symptoms with this. She admits that she drank heavily last night, had the opportunity to go out. 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 She states she rarely gets to go out and thus took advantage of it. She has not noted any reflux, no vomiting, no heartburn. Did report some nausea to nursing staff. EMS found her to be in normal sinus rhythm. She states there is a lot of heart history in her family, early heart attacks. She also endorses vaping recently. She had quit smoking about 4 years ago but started vaping nicotine products. She has a Mirena IUD for contraception. She does take a daily dose of metoprolol for rhythm suppression of her SVT, admits she took it later than she normally would. Her main complaint is chest heaviness. Symptoms have been present for close to 3 hours now. She did undergo ablation for her SVT about 2 years ago per her report. MD complaint: chest heaviness Related Data On Oral Contraceptives: No Home Medications ?Medication ?Instructions ?Recorded ?Confirmed omeprazole 40 mg capsule,delayed 40 mg PO DAILY 04/28/22 10/28/23 release lorazepam 0.5 mg tablet 0.5 mg PO DAILY PRN anxiety 03/18/23 10/28/23 metoprolol succinate 25 mg 12.5 mg PO DAILY 10/15/23 10/28/23 tablet,extended release 24 hr paroxetine HCl 40 mg tablet 40 mg PO QAM 10/15/23 10/28/23 Previous Rx's ?Medication ?Instructions ?Recorded famotidine 40 mg tablet 40 mg PO DAILY #30 tabs 10/28/23 sucralfate 1 gram tablet (Carafate) 1 g PO BID #60 tabs 10/28/23 Allergies Allergy/AdvReac Type Severity Reaction Status Date / Time vancomycin Allergy Verified 10/28/23 13:54 Review of Systems Status of ROS Reports: 6 or more systems reviewed and unremarkable except as noted in History and below [facility] Medical History SVT (supraventricular tachycardia) ?I47.10 - Supraventricular tachycardia, unspecified (ICD-10) Social History Smoking Status: Former smoker What tobacco products do you use: cigarettes Smoking quit date/years: <= 15 years ago Do you use any of these nicotine containing products: None and Vaping Products Second hand tobacco smoke exposure: No How often do you have a drink containing alcohol: monthly or less How often do you have six or more drinks on one occasion: Never AUDIT-C Alcohol total score: 1 Non-prescribed substance use: denies use service: No Exam Const Vital Signs, click to edit/add: Vital Signs - 24 hr 01/07/24 17:14 Temperature 98.6 F Pulse Rate [Pulse Oximeter] 81 Respiratory Rate 18 Blood Pressure [Right Upper Arm] 121/72 Pulse Oximetry 100 Oxygen Delivery Method Room Air This 23-year-old female is alert, interactive, no apparent distress. She does look tired. Sclera clear, conjugate gaze, symmetrical facial function. Able to speak in complete sentences. Neck without any adenopathy. Lungs are clear, good air entry, no wheezing or crackles. CV regular rate and rhythm, no murmur, normal S1-S2, no S3-S4. Abdomen is soft, no rebound or guarding, no organomegaly, no masses. Documenting provider has reviewed patient's vital signs: yes Course Course ED Course: Will have patient on cardiac monitoring and pulse oximetry. She will get a portable chest x-ray, EKG to start. We will get basic labs including a troponin and a D-dimer. Will initiate a L of IV fluids for this patient. No documented capture of any arrhythmia per report of EMS but will continue to watch for this here. Reevaluation(s) Time of Reevaluation #1: 19:39 Reevaluation #1: Patient was requesting to go home, states she feels better. Reviewed her normal labs outside of mildly low hemoglobin of 11.4. She is not having much menstrual bleeding due to her IUD. We discussed having her follow this up in clinic. There is no evidence of any arrhythmia while here on monitoring, no concerning change in any of her labs. Her symptoms started about 3 hours earlier, troponin at roughly a 3 hour marker was normal. She feels comfortable going home and I do think that this is appropriate at this time. Vital Signs Vital signs: Initial Vital Signs Temperature 98.6 F 01/07/24 17:14 Temperature Source Temporal Artery Scan 01/07/24 17:14 Pulse Rate 81 01/07/24 17:14 Respiratory Rate 18 01/07/24 17:14 Blood Pressure 121/72 01/07/24 17:14 Blood Pressure Mean 88 01/07/24 17:14 Pulse Oximetry 100 01/07/24 17:14 Oxygen Delivery Method Room Air 01/07/24 17:14 Vital Signs Temperature 98.6 F 01/07/24 17:14 Pulse Rate 81 01/07/24 17:14 Respiratory Rate 18 01/07/24 17:14 Blood Pressure 121/72 01/07/24 17:14 Pulse Oximetry 100 01/07/24 17:14 Oxygen Delivery Method Room Air 01/07/24 17:14 Temperature 98.6 F 01/07/24 17:14 Pulse Rate 81 01/07/24 17:14 Respiratory Rate 18 01/07/24 17:14 Blood Pressure 121/72 01/07/24 17:14 Pulse Oximetry 100 01/07/24 17:14 Oxygen Delivery Method Room Air 01/07/24 17:14 Medications Administered Medications: Discontinued Medications Generic Name Dose Route Start Last Admin Trade Name Freq PRN Reason Stop Dose Admin Sodium Chloride 1,000 mls @ 1,000 mls/hr 01/07/24 17:57 01/07/24 18:08 0.9 % Sodium Chloride 1000 Ml IV 01/07/24 18:56 1,000 mls/hr .Q1H MACIE Administration MDM - Chest Pain Lab Data Attestation: I reviewed the patient's lab results. Labs: Lab Results 01/07/24 01/07/24 Range/Units 18:18 18:30 WBC 7.51 (4.50-11.00) K/uL RBC 4.35 (4.00-5.20) m/uL Hgb 11.4 L (12.0-16.0) gm/dL Hct 35.6 (33.0-51.0) % MCV 82 (80-100) fL MCH 26 (26-34) pg MCHC 32 (32-36) gm/dL RDW Coeff of Naina 12.6 (11.5-15.5) % Plt Count 236 (140-440) K/uL Neut % (Auto) 64.5 (42.0-72.0) % Lymph % (Auto) 26.0 (20-44) % [place] % (Auto) 6.3 (0.0-11.0) % Eos % (Auto) 2.8 (0.0-7.0) % Baso % (Auto) 0.3 (0.0-3.0) % Neut # (Auto) 4.85 (1.7-7.0) K/uL Lymph # (Auto) 1.95 (0.90-2.90) K/uL [place] # (Auto) 0.50 (0.00-0.90) K/UL Eos # (Auto) 0.21 (0.00-0.50) K/uL Baso # (Auto) 0.02 (0.00-0.30) K/uL Abs Immat Gran (auto) 0.01 (0.00-0.30) K/uL Imm/Tot Granulo (auto) 0.1 % D-Dimer Quant (PE/DVT) 0.09 (0.00-0.50) ug/ml Sodium 138 (135-149) mmol/L Potassium 3.7 (3.6-5.1) mmol/L Chloride 106 (96-114) mmol/L Carbon Dioxide 24 (20-32) mmol/L Anion Gap 8 (7-15) mEq/L BUN 12 (5-24) mg/dL Creatinine 0.6 (0.5-1.5) mg/dL Estimated Creat Clear 136.51 Estimated GFR 129 ml/min Glucose 116 H (60-115) mg/dL Lactate 0.7 (0.5-1.9) mmol/L Calcium 9.2 (8.4-10.6) mg/dL Magnesium 2.1 (1.5-2.6) mg/dL Troponin I < 0.01 L (0.01-0.04) ng/mL NT-Pro-B Natriuret Pep < 20 pg/mL Imaging Data Chest x-ray: Attestation: I have reviewed the pertinent imaging results. Radiologist's impression: Patient: NAHUN CLARK Facility:?[facility] Patient ID:?[id number] Site Patient ID:?[id number]. Site :?[id number] Study:?XRay-Chest -01/07/2024 6:25:48 PM Ordering Physician:Obdulia Mckeon Final Report: Indication: Chest pain Comparison: Single-view chest October 28, 2023 Technique: Single AP view chest Findings: There is no focal consolidation, effusion, or pneumothorax. The cardiomediastinal silhouette is within normal limits. The bony thorax is grossly intact. Impression: No acute cardiopulmonary abnormality. Dictated by Alejo Wood MD @ 01/07/2024 6:47:02 PM (Electronic Signature) ECG Data Attestation: I personally reviewed and interpreted this ECG as follows: (Normal sinus rhythm, 73 beats per minute. Some artifact initial portion of the EKG. Overall no evidence of any ischemic change, no infarct. QT corrected 412 milliseconds.) ECG interpretation date: 01/07/24 ECG interpretation time: 17:51 Prior ECG tracings: available for review (No concerning change compared to EKG from 10/28/2023.) Critical Care Time Critical Care Time Critical Care Time: No Discharge Plan Discharge Clinical Impression: Chest heaviness, Hx of supraventricular tachycardia Anemia Qualifiers: Anemia type: unspecified type Qualified Code(s): D64.9 - Anemia, unspecified Patient Disposition: Home, Self-Care Condition: Stable Instructions: Chest Pain (ED), Anemia (ED) Additional Instructions: Recommend scheduling a follow-up with your primary care provider within the next couple of weeks. Hemoglobin should be rechecked, was mildly low here at 11.4. This can be worked up further outpatient, does not need any further emergent workup at this time. If you do feel that you have recurrent arrhythmia symptoms or increasing chest symptoms again, do recommend re-evaluation. Activity Level: Activity as Tolerated Discharge Diet: Regular Prescriptions: No Action lorazepam 0.5 mg tablet 0.5 mg PO DAILY PRN (Reason: anxiety) famotidine 40 mg tablet 40 mg PO DAILY Qty: 30 0RF sucralfate [Carafate] 1 gram tablet 1 g PO BID Qty: 60 2RF omeprazole 40 mg capsule,delayed release(DR/EC) 40 mg PO DAILY Patient Comments: TAKE ONE CAPSULE BY MOUTH EVERY DAY . metoprolol succinate 25 mg tablet extended release 24 hr 12.5 mg PO DAILY paroxetine HCl 40 mg tablet 40 mg PO QAM Follow Up/Referrals: Provider,Not a Local [Primary Care Provider] - Stand Alone Forms: [employer] Info Instructions
--- NOTE | 2024-01-07 17:56 | CRLHL7_ITS ---
For Patients: As a result of the Cures Act, medical imaging exams and procedure reports are released immediately into your electronic medical record. You may view this report before your referring provider. If you have questions, please contact your health care provider. Indication: Chest pain Comparison: Single-view chest October 28, 2023 Technique: Single AP view chest Findings: There is no focal consolidation, effusion, or pneumothorax. The cardiomediastinal silhouette is within normal limits. The bony thorax is grossly intact. Impression: No acute cardiopulmonary abnormality. Dictated by Alejo Wood MD @ 01/07/2024 6:47:02 PM (Electronically Signed)
--- OUTSIDE RECORDS SUMMARY | 2024-01-07 18:03 | XMS_ITS | Clinical Summary ---
Author Organization [facility] Address [address] [place] [phone] Phone Care Team Providers Care Mule Tender Name Role Phone Unavailable Primary Care Provider [...]
--- OUTSIDE RECORDS SUMMARY | 2024-01-07 18:03 | XMS_ITS | Clinical Summary ---
Author Organization [facility] Address [place], [place] [address] Care Team Providers Care Manager Erp Name Role Phone Clinic, No Pcp Or Primary Care Provider Unavaila ble Allergies No known active allergies Medications Medication Sig Dispensed Refills Start Date End Date Status biotin-silicon oucj-V-adfhzeoh 3,000 mcg -100 mg-50 mg TbER Take [...] Comments Blood Pressure 124/78 08/31/2018 11:46 AM REPRODUCTION ARTIST Pulse 78 08/31/2018 11:46 AM REPRODUCTION ARTIST Temperature 37.1 ??C (98.8 ??F) 11/01/2017 5:26 PM CD T Respiratory Rate 16 11/01/2017 5:26 PM CDT Oxygen Saturation 96% 11/01/2017 5:26 PM CDT Inhaled Oxygen Concentration - - Weight 89.3 kg (196 lb 14.4 oz) 019 11:46 AM REPRODUCTION ARTIST Height 166.5 cm (5' 5.55) 08/31/2018 1 1:46 AM REPRODUCTION ARTIST Body Mass Index 32.22 08/31/2018 11:46 AM REPRODUCTION ARTIST Plan of Treatment Health Maintenance Due Date [...] for age 21-65 2021 COVID-19 vaccine series (2022- season) 2023 Influenza for age 9-49 03/11/2024 Pneumococcal series for age 6-64 Aged Out No longer eligible based on patient's age to complete this topic Care Teams Manager Erp Relationship Specialty Start Date End Date Clinic, No Pcp Or . PCP - General 08/12/17
--- OUTSIDE RECORDS SUMMARY | 2024-01-07 18:04 | XMS_ITS | Referral Summary ---
Author Organization [place] Address [address] [place] [address] Care Team Providers Care Registered Radiologic Technologist Name Role Phone Thang Diana [place] [facility] Unavailable [phone] Rain Galaviz PA-C Unavailable Tavia Wyatt MD Unavailable Unavailable Erica Farrell STORAGE AND BACKUP ADMINISTRATOR [employer] Unavailable Rich Barrett MD Unavailable Neil Kent MD Unavailable Diana Desir [facility] Unavailable [phone] Livan Sharif MD Unavailable Catherine Cm MD Unavailable + Valery Veronica PA-C Unavailable [phone] Brea Quinn STORAGE AND BACKUP ADMINISTRATOR [employer] Unavailable Brea Quinn STORAGE AND BACKUP ADMINISTRATOR [employer] Unavailable Jose Francisco Johnson MD Unavailable Alfonso Renteria MD Unavailable [phone] Esha Grimm PA-C Primary Care Provider Radha Lomeli STORAGE AND BACKUP ADMINISTRATOR [employer] Unavailable [phone] Jelena David OD Unavailable [phone] Esha Grimm Adam PA-C Unavailable [phone] Valery Veronica PA-C Unavailable Rey Tay MD Unavailable Rocky Zepeda Unavailable Philip Dumont MD Unavailable Meredith Carrera PA-C Unavailable Neil Kent MD Unavailable Juan Pablo Emmanuel MD Unavailable Encounters Date Type Department Care Team Description 01/06/2024 Telephone [facility] Neurology [facility] - [place] [address] [place] [address], [address] [place] [phone] Juan Pablo Emmanuel MD Appointment 01/06/2024 10:53 AM CDT - 01/06/2024 11:59 PM CDT Hospital Encounter [facility] [address] [place] [phone] Ebony Cid APRN [employer] Chiari malformation type I (H); Numbness and tingling of upper extremity; Abnormal finding on MRI of brain Discharge Disposition: Home or Self Care 01/05/2024 Travel 01/05/2024 1:40 PM CDT Office Visit [facility] Spine and Neurosurgery [address] [facility] [address] [place] [address] Ebony Cid APRN [employer] Abnormal finding on MRI of brain (Primary Dx); Chiari malformation type I (H); Numbness and tingling of upper extremity; Neck pain 01/02/2024 PRE VISIT [facility] Neurosurgery Clinic [place] [address] [place] [phone] Juan Pablo Emmanuel MD Pre Visit Planning - 2 Attempts (Pre charting) 12/26/2023 Travel 12/26/2023 9:32 AM CDT - 12/26/2023 10:06 AM CDT Emergency [facility] Emergency Dept [address] [place] [address] Chidi Kim MD Chest tightness Discharge Disposition: Home or Self Care 12/26/[address] [phone] Esha Grimm PA-C Same Day Appointment (sore throat, body aches, headaches couple days) 12/23/2023 Travel 12/21/2023 1:20 PM CDT Ancillary Procedure [address] [phone] Jaret Cortez APRN [employer] Chest tightness; SOB (shortness of breath) 12/21/[address] [phone] Livan Sharif MD Call Back (Schedule appt tomorrow ) 12/21/2023 Travel 12/21/2023 12:40 PM CDT Office Visit [address] [phone] Jaret Cortez APRN [employer] Vaginal odor (Primary Dx); Chest tightness; SOB (shortness of breath) 12/02/[address] [phone] Radha Lomeli APRN [employer] Appointment (Clarification) 11/29/2023 [facility] Medical Advice [address] [phone] Esha Grimm PA-C 11/29/2023 Telephone [facility] [address] [facility], [address] [place] [phone] Genny Hyman PA-C 11/24/2023 Travel 11/24/2023 8:20 AM CDT - 11/24/2023 11:59 PM CDT Hospital Encounter [facility] [address] [facility] [address] [place] [phone] Lauren Claudio PA-C Epigastric pain Discharge Disposition: Home or Self Care 11/22/2023 Refill [facility] Heart [address] [place] [phone] Radha Lomeli APRN [employer] Refill Request (metoprolol) 11/21/2023 MyC Medical Advice [facility] Gastroenterology Clinic [address] [place] [address] Sofia Alcantar 11/21/2023 MyC Medical Advice [facility] [address] [place] [address] Sofia Alcantar 11/18/2023 Telephone [facility] Epilepsy [facility] [address] [place] [address], [address] [place] [address] Alfonso Renteria MD 11/17/2023 Refill M [address] [phone] Brea Quinn APRN [employer] Refill Request (Ketoconazole 2% shampoo) 11/16/2023 My[facility] Medical Advice [address] [phone] Asiya Reddy RN 11/16/[address] [phone] Esha Grimm PA-C Referral 11/15/2023 MyC Medical Advice [facility] [place] [address] [place] [phone] Vivian Grant 11/14/2023 Travel 11/14/2023 11:00 AM CDT Office Visit [facility] [address] [place] [phone] Yolande Mora MD Urinary problem (Primary Dx); Screen for STD (sexually transmitted disease); Yeast infection of the vagina 11/04/2023 Travel 11/04/2023 6:35 PM CDT Office Visit [facility] [address] [place] [phone] Anthony Lazcano PA-C Atypical chest pain (Primary Dx); Tingling of both upper extremities; Numbness and tingling of left leg; Elevated vitamin B12 level 10/30/2023 Telephone [facility] [address] [place] [phone] Tiffanie Washburn RN Abnormal Labs 10/27/2023 Telephone [facility] [address] [phone] Rocky Zepeda DO 10/27/2023 Travel 10/27/2023 4:00 PM CDT Office Visit [address] [phone] Lauren Claudio PA-C Epigastric pain (Primary Dx); Eosinophilic esophagitis; Hiatal hernia; Anxiety; Vitamin deficiency; Breast tenderness; Dizziness; Shakiness 10/26/2023 Travel 10/26/2023 6:35 PM CDT Office Visit [facility] [address] [place] [phone] Pao Mullen APRN CNP 10/26/2023 My[facility] Medical Advice [facility] [address] [phone] Wesley Powell 10/25/2023 MyC Medical Advice [facility] [address] [phone] 10/25/2023 MyC Medical Advice [facility] [address] [phone] SherryWesley 10/25/2023 Telephone [facility] [address] [phone] None Procedure (EGD) 10/25/2023 Telephone [facility] [address] [phone] Meredith Carrera PA-C Appointment 10/25/2023 11:30 AM CDT Virtual Visit [facility] Gastroenterology [address] [phone] Nelly Mesa, DADA Eosinophilic esophagitis (Primary Dx); Esophageal dysphagia 10/24/[address] [phone] Esha Grimm PA-C 10/24/2023 Telephone [facility] [address] [phone] Meredith Carrera PA-C Call Back 10/24/2023 Alejandro Medical Advice [facility] [address] [phone] Kenneth Denson 10/21/2023 Telephone [facility] [address] [phone] Meredith Carrera PA-C Medication Question (omeprazole ) 10/21/[address] [phone] Esha Grimm PA-C Medication Update 10/21/2023 MyC Medical Advice [facility] [address] [phone] Bob Diop 10/20/2023 MyC Medical Advice [facility] [address] [place] [phone] Esha Grimm PA-C Outreach 10/18/2023 Telephone [facility] [address] [place] [phone] Esha Grimm PA-C Sinus Problem 10/17/2023 Telephone [facility] [address] [place] [phone] Esha Grimm PA-C Appointment 10/13/2023 Travel 10/13/2023 10:45 AM CDT Office Visit [facility] [address] [phone] Meredith Carrera PA-C Eosinophilic esophagitis (Primary Dx); Esophageal dysphagia 10/12/2023 Travel 10/10/2023 4:20 PM CDT Office Visit [facility] [place] [address] [place] [phone] Jaron Hager PA-C Congestion of paranasal sinus (Primary Dx) 10/10/2023 Travel from Last 3 Months Allergies Active Allergy Reactions Criticality Noted Date Comments Vancomycin 04/26/2022 Medications Medication Sig Dispensed Refills Start Date End Date Status triamcinolone (KENALOG) 0.1 % external ointmentIndication s:Psoriasis Apply topically 2 times daily To psoriasis on body or arms/legs until healed then stop 80 g 2 10/01/2022 Active tacrolimus (PROTOPIC) 0.1 % external ointmentIndication s:Psoriasis Apply thin layer to psoriasis on thinner skin of face/genitals up to twice daily as needed. 60 g 11 10/01/2022 Active Lidocaine (LIDOCARE) 4 % PatchIndications:A cute left-sided low back pain with left-sided sciatica,Sacroilia c joint pain,Neck pain Place 1 patch onto the skin every 24 hours To prevent lidocaine toxicity, patient should be patch free for 12 hrs daily. 30 patch 1 10/11/2022 Active levonorgestrel (MIRENA) 52 MG (20 mcg/day) IUD by Intrauterine route once Active clindamycin (CLEOCIN T) 1 % external lotionIndications: Acne, unspecified acne type Apply topically 2 times daily 60 mL 1 09/01/2023 Active tretinoin (RETIN-A) 0.05 % external creamIndications:A cne, unspecified acne type Apply topically at bedtime 45 g 09/01/2023 Active omeprazole (PRILOSEC) [address] capsuleIndications :Epigastric pain TAKE 1 CAPSULE BY MOUTH DAILY. 90 capsule 3 09/16/2023 Active PARoxetine (PAXIL) 40 MG tabletIndications: Anxiety Take 1 tablet (40 mg) by mouth every morning 90 tablet 1 09/21/2023 Active Multiple Vitamin (MULTIVITAMIN ADULT PO) Active Digestive Enzymes (DIGESTIVE ENZYME PO) Active Probiotic Product (PROBIOTIC BLEND PO) Active LORazepam (ATIVAN) 0.5 MG tabletIndications: Anxiety Take 1 tablet (0.5 mg) by mouth daily as needed for anxiety 30 tablet 10/27/2023 Active ketoconazole (NIZORAL) 2 % external shampooIndications :Psoriasis Use every 1-2 days when flared. Leave in few minutes before rinsing. Use twice weekly to prevent flares. 120 mL 11 11/17/2023 Active metoprolol succinate ER (TOPROL XL) 25 MG 24 hr tabletIndications: Palpitations Take 0.5 tablets (12.5 mg) by mouth daily 45 tablet 1 11/22/2023 Active Active Problems Patient Care Coordination No te [...] available in ED consider consultation with ED Boring Inspector. Relevant Medical History (at time Care Plan [...] to initiation of Care Plan: 11 Total [facility] Hospital Admissions in 12 months prior to initiation of Care Plan: 0 (she has technically had 2 admissions due to related issues with OBGYN) Expected home rescue plan: Metoprolol 12.5mg PRN PCP: Marija Edgar APRN CNP - Family Medicine - [facility] Specialists: Dr. Galo Burrell - Cardiology - [facility] Cesar Dotson - Neurology - [facility] Epilepsy Care Care Coordination: Has worked with Community Health Worker in past - ARACELIS Parker, Clinical Care Coordination - 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 30 min 03/10/2023 [place] Depression Scale Answer Date Recorded [place] Depression Score 5 01/14/2021 Last EPDS Self [...] Answer Date Recorded Do you have housing? (Housin g is defined as stable permanent housing and does not include staying ouside in a car, in a tent, in an abandoned building, in an overnight care home, or couch-surfing.) Yes 07/14/2023 Are you worried about losing [...] Sign Reading Time Taken Comments Blood Pressure 120/62 01/05/2024 2:25 PM CDT Pulse 80 01/05/2024 2:25 PM CDT Temperature 36.4 ??C (97.5 ??F) 12/26/2023 8:57 AM CD T Respiratory Rate 18 12/26/2023 8:57 AM CDT Oxygen Saturation 98% 12/26/2023 8:57 AM CDT Inhaled Oxygen Concentration - - Weight 83.9 kg (185 lb) 01/05/2024 2:25 PM CDT Height 167.6 cm (5' 6) 01/05/2024 2:25 PM CDT Body Mass Index 29.86 01/05/2024 2:25 PM CDT Plan of Treatment Upcoming Encounters Date Type Department Care Team (Late st Contact Info) Description 01/09/2024 10:15 AM CDT Office Visit [facility] Neurology [facility] - [address], [address] [place] [phone] Genny Hyman PA-C [facility] Epilepsy Care [address] [facility] [address] [place], [place] [address] [place] [address] [place] [address] 02/06/2024 10:00 AM CDT [facility] [address] [phone] Neil Kent MD [address] [place], [place] [address] 03/06/2024 3:00 PM CDT Office Visit [facility] Heart [facility] [address] [place] [phone] Radha Lomeli APRN [employer] [address] [place], [place] [phone] 03/07/2024 9:00 AM CDT Hospital Encounter [facility] [address] [place] [phone] Rocky Zepeda DO [address] [place], [place] [phone] 03/07/2024 9:00 AM CDT - 03/07/2024 9:30 AM CDT Surgery [address] [phone] Rocky Zepeda DO [address] [place], [place] [phone] Esophagoscopy, gastroscopy, duodenoscopy (EGD), combined Scheduled Procedures Name Priority Associated Diagnoses Date/Ti me ESOPHAGOGASTRODUODENOSCOPY Eosinophilic esophagitis Esophageal dysphagia 03/07/2024 9:00 AM CDT Procedures Procedure Name Priority Date/Time Associated Diagnosis Comments MR BRAIN W/O & W CONTRAST STAT 01/06/2024 12:41 PM CDT Abnormal finding on MRI of brain Chiari malformation type I (H) MR CERVICAL SPINE W/O & W CONTRAST STAT 01/06/2024 12:41 PM CDT Chiari malformation type I (H) Numbness and tingling of upper extremity EKG 12-LEAD, TRACING ONLY STAT 12/26/2023 9:56 AM CDT GROUP A STREPTOCOCCUS PCR THROAT SWAB STAT 12/26/2023 9:02 AM CDT INFLUENZA A/B, RSV, & SARS-COV2 PCR STAT 12/26/2023 9:02 AM CDT CBC WITH PLATELETS & DIFFERENTIAL Routine 12/21/2023 1:39 PM CDT Chest tightness SOB (shortness of breath) CBC WITH PLATELETS AND DIFFERENTIAL Routine 12/21/2023 1:39 PM CDT Chest tightness SOB (shortness of breath) D DIMER QUANTITATIVE STAT 12/21/2023 1:39 PM CDT Chest tightness SOB (shortness of breath) COMPREHENSIVE METABOLIC PANEL STAT 12/21/2023 1:39 PM CDT Chest tightness SOB (shortness of breath) HIV ANTIGEN ANTIBODY COMBO Routine 12/21/2023 1:39 PM CDT Vaginal odor HEPATITIS C ANTIBODY Routine 12/21/2023 1:39 PM CDT Vaginal odor TREPONEMA ABS W REFLEX TO RPR AND TITER Routine 12/21/2023 1:39 PM CDT Vaginal odor XR CHEST 2 VIEWS STAT 12/21/2023 1:26 PM CDT Chest tightness SOB (shortness of breath) CHLAMYDIA TRACHOMATIS/NEISSERIA GONORRHOEAE BY PCR Routine 12/21/2023 12:44 PM CDT Vaginal odor WET PREPARATION Routine 12/21/2023 12:44 PM CDT Vaginal odor UA MICROSCOPIC WITH REFLEX TO CULTURE Routine 12/21/2023 12:44 PM CDT Vaginal odor ROUTINE UA WITH MICROSCOPIC REFLEX TO CULTURE Routine 12/21/2023 12:44 PM CDT Vaginal odor EKG 12-LEAD COMPLETE W/READ - CLINICS Routine 12/21/2023 Chest tightness SOB (shortness of breath) US ABDOMEN LIMITED Routine 11/24/2023 9: 30 AM CDT Epigastric pain TREPONEMA ABS W REFLEX TO RPR AND TITER Routine 11/14/2023 10:43 AM CDT Screen for STD (sexually transmitted disease) HIV ANTIGEN ANTIBODY COMBO Routine 11/14/2023 10:43 AM CDT Screen for STD (sexually transmitted disease) HEPATITIS C ANTIBODY Routine 11/14/2023 10:43 AM CDT Screen for STD (sexually transmitted disease) HEPATITIS B SURFACE ANTIGEN Routine 11/14/2023 10:43 AM CDT Screen for STD (sexually transmitted disease) CHLAMYDIA TRACHOMATIS/NEISSERIA GONORRHOEAE BY PCR Routine 11/14/2023 10:31 AM CDT Screen for STD (sexually transmitted disease) URINE CULTURE Add-On 11/14/2023 9:51 AM CDT Urinary problem WET PREPARATION Routine 11/14/2023 9:51 AM CDT Urinary problem UA MICROSCOPIC WITH REFLEX TO CULTURE Routine 11/14/2023 9:51 AM CDT Urinary problem UA MACROSCOPIC WITH REFLEX TO MICRO AND CULTURE Routine 11/14/2023 9:51 AM CDT Urinary problem CBC WITH PLATELETS & DIFFERENTIAL Routine 11/04/2023 7:36 PM CDT Atypical chest pain Tingling of both upper extremities Numbness and tingling of left leg Elevated vitamin B12 level CBC WITH PLATELETS AND DIFFERENTIAL Routine 11/04/2023 7:36 PM CDT Atypical chest pain Tingling of both upper extremities Numbness and tingling of left leg Elevated vitamin B12 level VITAMIN B6 Routine 11/04/2023 7:36 PM CDT Atypical chest pain Tingling of both upper extremities Numbness and tingling of left leg Elevated vitamin B12 level VITAMIN B12 Routine 11/04/2023 7:36 PM CDT Atypical chest pain Tingling of both upper extremities Numbness and tingling of left leg Elevated vitamin B12 level TSH WITH FREE T4 REFLEX Routine 11/04/2023 7:36 PM CDT Atypical chest pain Tingling of both upper extremities Numbness and tingling of left leg Elevated vitamin B12 level BASIC METABOLIC PANEL Routine 11/04/2023 7:36 PM CDT Atypical chest pain Tingling of both upper extremities Numbness and tingling of left leg Elevated vitamin B12 level EKG 12-LEAD COMPLETE W/READ - CLINICS Routine 11/04/2023 Atypical chest pain Tingling of both upper extremities Numbness and tingling of left leg Elevated vitamin B12 level LIPASE Routine 10/27/2023 4:33 PM CDT Epigastric pain IGA Routine 10/27/2023 4:33 PM CDT Epigastric pain Breast tenderness Dizziness Shakiness ERYTHROCYTE SEDIMENTATION RATE AUTO Routine 10/27/2023 4:33 PM CDT Epigastric pain Breast tenderness Dizziness Shakiness CRP INFLAMMATION Routine 10/27/2023 4:33 PM CDT Epigastric pain Breast tenderness Dizziness Shakiness COMPREHENSIVE METABOLIC PANEL Routine 10/27/2023 4:33 PM CDT Epigastric pain VITAMIN K Routine 10/27/2023 4:33 PM CDT Epigastric pain VITAMIN E Routine 10/27/2023 4:33 PM CDT Epigastric pain VITAMIN B12 Routine 10/27/2023 4:33 PM CDT Epigastric pain VITAMIN B6 Routine 10/27/2023 4:33 PM CDT Epigastric pain VITAMIN D DEFICIENCY SCREENING Routine 10/27/2023 4:33 PM CDT Epigastric pain VITAMIN A Routine 10/27/2023 4:33 PM CDT Epigastric pain GYNECOLOGIC CYTOLOGY Routine 09/22/2021 3:14 PM CDT Encounter for screening for cervical cancer ASTHMA [employer] PLAN Routine 06/24/2020 3: 56 PM 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 ??No acute intracranial process. 2. ??Mild Chiari I malformation. CERVICAL SPINE MRI: 1. ??No spinal canal or foraminal stenosis. 2. ??No spinal cord signal abnormality. 3. ??Unchanged sclerotic lesion at the right lateral aspect of the C4 vertebral body. Narrative 01/06/2024 1:10 PM CDT EXAM: MR CERVICAL SPINE W/O and W CONTRAST, MR BRAIN W/O and W CONTRAST LOCATION: [facility] DATE: 01/06/2024 INDICATION: numbness tingling both arms and chest, torso. Recheck C4 lesion and hx Chiari and right parietal abnormality, headaches COMPARISON: MRI cervical spine 10/21/2022, MRI brain 06/17/2023 CONTRAST: 8.5 mL janene TECHNIQUE: 1) Routine multiplanar multisequence head MRI without and with intravenous contrast. 2) Routine Cervical Spine MRI without and with IV contrast. FINDINGS: HEAD MRI: INTRACRANIAL CONTENTS: No acute or subacute infarct. No mass, acute hemorrhage, or extra-axial fluid collections. Single punctate focus of FLAIR signal abnormality at the right parietal lobe is nonspecific but unchanged from prior and of doubtful clinical significance. Normal ventricles and sulci. Mild Chiari I malformation is grossly similar to prior. No pathologic enhancement. SELLA: No abnormality accounting for technique. OSSEOUS STRUCTURES/SOFT TISSUES: Normal marrow signal. The major intracranial vascular flow voids are maintained. ORBITS: No abnormality accounting for technique. SINUSES/MASTOIDS: No paranasal sinus mucosal disease. No middle ear or mastoid effusion. CERVICAL SPINE: Normal alignment. Vertebral body heights are maintained. Stable appearance of sclerotic lesion measuring 7 mm in craniocaudal dimension at the right lateral aspect of the C4 vertebral body. Marrow signal is otherwise unremarkable. Negative for marrow edema. No abnormal cord signal. No extraspinal abnormality. Negative for pathologic contrast enhancement. Craniovertebral junction and C1-C2: Normal. C2-C3: Normal disc height. No herniation. Normal facets. No spinal canal or neural foraminal stenosis. C3-C4: Normal disc height. Mild disc bulge. Normal facets. No spinal canal or neural foraminal stenosis. C4-C5: Normal disc height. Mild disc bulge. Normal facets. No spinal canal or neural foraminal stenosis. C5-C6: Normal disc height. Mild disc bulge. Mild facet hypertrophy. No spinal canal or neural foraminal stenosis. C6-C7: Normal disc height. Mild disc bulge. Normal facets. No spinal canal or neural foraminal stenosis. C7-T1: Normal disc height. No herniation. Normal facets. No spinal canal or neural foraminal stenosis. Procedure Note Jonah Lomeli MD - 01/06/2024 EXAM: MR CERVICAL SPINE W/O and W CONTRAST, MR BRAIN W/O and W CONTRAST LOCATION: [facility] DATE: 01/06/2024 INDICATION: numbness tingling both arms and chest, torso. Recheck [id number] and hx Chiari and right parietal abnormality, headaches COMPARISON: MRI cervical spine 10/21/2022, MRI brain 06/17/2023 CONTRAST: 8.5 mL janene TECHNIQUE: 1) Routine multiplanar multisequence head MRI without and with intravenouscontrast. 2) Routine Cervical Spine MRI without and with IV contrast. FINDINGS: HEAD MRI: INTRACRANIAL CONTENTS: No acute or subacute infarct. No mass, acutehemorrhage, or extra-axial fluid collections. Single punctate focus ofFLAIR signal abnormality at the right parietal lobe is nonspecific butunchanged from prior and of doubtful clinical significance. Normal ventricles and sulci. Mild Chiari Imalformation is grossly similar to prior. No pathologic enhancement. SELLA: No abnormality accounting for technique. OSSEOUS STRUCTURES/SOFT TISSUES: Normal marrow signal. The majorintracranial vascular flow voids are maintained. ORBITS: No abnormality accounting for technique. SINUSES/MASTOIDS: No paranasal sinus mucosal disease. No middle ear ormastoid effusion. CERVICAL SPINE: Normal alignment. Vertebral body heights are maintained. Stable appearanceof sclerotic lesion measuring 7 mm in craniocaudal dimension at the rightlateral aspect of the C4 vertebral body. Marrow signal is otherwiseunremarkable. Negative for marrow edema. No abnormal cord signal. No extraspinal abnormality. Negative forpathologic contrast enhancement. Craniovertebral junction and C1-C2: Normal. C2-C3: Normal disc height. No herniation. Normal facets. No spinal canalor neural foraminal stenosis. C3-C4: Normal disc height. Mild disc bulge. Normal facets. No spinal canalor neural foraminal stenosis. C4-C5: Normal disc height. Mild disc bulge. Normal facets. No spinal canalor neural foraminal stenosis. C5-C6: Normal disc height. Mild disc bulge. Mild facet hypertrophy. Nospinal canal or neural foraminal stenosis. C6-C7: Normal disc height. Mild disc bulge. Normal facets. No spinal canalor neural foraminal stenosis. C7-T1: Normal disc height. No herniation. Normal facets. No spinal canalor neural foraminal stenosis. IMPRESSION: HEAD MRI: 1. No acute intracranial process. 2. Mild Chiari I malformation. CERVICAL SPINE MRI: 1. No spinal canal or foraminal stenosis. 2. No spinal cord signal abnormality. 3. Unchanged sclerotic lesion at the right lateral aspect of the [id number] body. Ebony Cid APRN [employer] IMG MRI ORDERABLES * MR Brain w/o & w Contrast (01/06/2024 12:41 PM CDT) Anatomical Region Laterality Modality Head, SUBRAD MR NEURO, UMP MR NEURO, RAD MR Magnetic Resonance 01/06/2024 12:4 1 PM CDT Impressions 01/06/2024 1:10 PM CDT IMPRESSION: HEAD MRI: 1. ??No acute intracranial process. 2. ??Mild Chiari I malformation. CERVICAL SPINE MRI: 1. ??No spinal canal or foraminal stenosis. 2. ??No spinal cord signal abnormality. 3. ??Unchanged sclerotic lesion at the right lateral aspect of the C4 vertebral body. Narrative 01/06/2024 1:10 PM CDT EXAM: MR CERVICAL SPINE W/O and W CONTRAST, MR BRAIN W/O and W CONTRAST LOCATION: [facility] DATE: 01/06/2024 INDICATION: numbness tingling both arms and chest, torso. Recheck C4 lesion and hx Chiari and right parietal abnormality, headaches COMPARISON: MRI cervical spine 10/21/2022, MRI brain 06/17/2023 CONTRAST: 8.5 mL janene TECHNIQUE: 1) Routine multiplanar multisequence head MRI without and with intravenous contrast. 2) Routine Cervical Spine MRI without and with IV contrast. FINDINGS: HEAD MRI: INTRACRANIAL CONTENTS: No acute or subacute infarct. No mass, acute hemorrhage, or extra-axial fluid collections. Single punctate focus of FLAIR signal abnormality at the right parietal lobe is nonspecific but unchanged from prior and of doubtful clinical significance. Normal ventricles and sulci. Mild Chiari I malformation is grossly similar to prior. No pathologic enhancement. SELLA: No abnormality accounting for technique. OSSEOUS STRUCTURES/SOFT TISSUES: Normal marrow signal. The major intracranial vascular flow voids are maintained. ORBITS: No abnormality accounting for technique. SINUSES/MASTOIDS: No paranasal sinus mucosal disease. No middle ear or mastoid effusion. CERVICAL SPINE: Normal alignment. Vertebral body heights are maintained. Stable appearance of sclerotic lesion measuring 7 mm in craniocaudal dimension at the right lateral aspect of the C4 vertebral body. Marrow signal is otherwise unremarkable. Negative for marrow edema. No abnormal cord signal. No extraspinal abnormality. Negative for pathologic contrast enhancement. Craniovertebral junction and C1-C2: Normal. C2-C3: Normal disc height. No herniation. Normal facets. No spinal canal or neural foraminal stenosis. C3-C4: Normal disc height. Mild disc bulge. Normal facets. No spinal canal or neural foraminal stenosis. C4-C5: Normal disc height. Mild disc bulge. Normal facets. No spinal canal or neural foraminal stenosis. C5-C6: Normal disc height. Mild disc bulge. Mild facet hypertrophy. No spinal canal or neural foraminal stenosis. C6-C7: Normal disc height. Mild disc bulge. Normal facets. No spinal canal or neural foraminal stenosis. C7-T1: Normal disc height. No herniation. Normal facets. No spinal canal or neural foraminal stenosis. Procedure Note Jonah Lomeli MD - 01/06/2024 EXAM: MR CERVICAL SPINE W/O and W CONTRAST, MR BRAIN W/O and W CONTRAST LOCATION: [facility] DATE: 01/06/2024 INDICATION: numbness tingling both arms and chest, torso. Recheck [id number] and hx Chiari and right parietal abnormality, headaches COMPARISON: MRI cervical spine 10/21/2022, MRI brain 06/17/2023 CONTRAST: 8.5 mL janene TECHNIQUE: 1) Routine multiplanar multisequence head MRI without and with intravenouscontrast. 2) Routine Cervical Spine MRI without and with IV contrast. FINDINGS: HEAD MRI: INTRACRANIAL CONTENTS: No acute or subacute infarct. No mass, acutehemorrhage, or extra-axial fluid collections. Single punctate focus ofFLAIR signal abnormality at the right parietal lobe is nonspecific butunchanged from prior and of doubtful clinical significance. Normal ventricles and sulci. Mild Chiari Imalformation is grossly similar to prior. No pathologic enhancement. SELLA: No abnormality accounting for technique. OSSEOUS STRUCTURES/SOFT TISSUES: Normal marrow signal. The majorintracranial vascular flow voids are maintained. ORBITS: No abnormality accounting for technique. SINUSES/MASTOIDS: No paranasal sinus mucosal disease. No middle ear ormastoid effusion. CERVICAL SPINE: Normal alignment. Vertebral body heights are maintained. Stable appearanceof sclerotic lesion measuring 7 mm in craniocaudal dimension at the rightlateral aspect of the C4 vertebral body. Marrow signal is otherwiseunremarkable. Negative for marrow edema. No abnormal cord signal. No extraspinal abnormality. Negative forpathologic contrast enhancement. Craniovertebral junction and C1-C2: Normal. C2-C3: Normal disc height. No herniation. Normal facets. No spinal canalor neural foraminal stenosis. C3-C4: Normal disc height. Mild disc bulge. Normal facets. No spinal canalor neural foraminal stenosis. C4-C5: Normal disc height. Mild disc bulge. Normal facets. No spinal canalor neural foraminal stenosis. C5-C6: Normal disc height. Mild disc bulge. Mild facet hypertrophy. Nospinal canal or neural foraminal stenosis. C6-C7: Normal disc height. Mild disc bulge. Normal facets. No spinal canalor neural foraminal stenosis. C7-T1: Normal disc height. No herniation. Normal facets. No spinal canalor neural foraminal stenosis. IMPRESSION: HEAD MRI: 1. No acute intracranial process. 2. Mild Chiari I malformation. CERVICAL SPINE MRI: 1. No spinal canal or foraminal stenosis. 2. No spinal cord signal abnormality. 3. Unchanged sclerotic lesion at the right lateral aspect of the [id number] body. Ebony Cid APRN [employer] IMG MRI ORDERABLES * EKG 12 lead (12/26/2023 9:56 AM CDT) Systolic Blood Pressure mmHg RADIOLOGY RESULTS Diastolic Blood Pressure mmHg RADIOLOGY RESULTS Ventricular Rate 65 BPM RAD IOLOGY RESULTS Atrial Rate 65 BPM RADIOLOG Y RESULTS MS Interval 148 ms RADIOLOG Y RESULTS QRS Duration 90 ms RADIOLO GY RESULTS QT 382 ms RADIOLOGY RESULTS QTc 397 ms RADIOLOGY RESULTS P [place] 65 degrees RADIOLOGY RESULTS R AXIS 69 degrees RADIOLOGY RESULTS T [place] 60 degrees RADIOLOGY RESULTS Interpretation ECG Sinus rhythm Normal ECG When compared with ECG of 07-SEP-2023 18:14, QT has shortened Unconfirmed report - interpretation of this ECG is computer generated - see medical record for final interpretation Confirmed by - EMERGENCY ROOM, PHYSICIAN ([id number]), scientific editor Saleem Gomez ([id number]) on 12/26/2023 10:17:45 AM RADIOLOGY RESULTS 12/26/2023 9:56 AM CDT 12/26/2023 10:17 AM CDT Chidi Kim MD ECG ORDERABLES RADIOLOGY RESULTS * Symptomatic Influenza A/B, RSV, & SARS-CoV2 PCR (COVID-19) Nasopharyngeal (12/26/2023 9:02 AM CDT) Influenza A PCR Negative Negative 12/26/2023 9:50 AM CDT [facility] Influenza B PCR Negative Negative 12/26/2023 9:50 AM CDT [facility] RSV PCR Negative Negative 12/26/2023 9:50 AM CDT [facility] SARS CoV2 PCR Negative Negative 12/26/2023 9:50 AM CDT [facility] Comment:NEGATIVE: SARS-CoV-2 (COVID-19) RNA not detected, presumed negative. Swab NASOPHARYNGEAL STRUCTURE / Unknown Non-blood Collection / Unknown 12/26/2023 9:02 AM CDT 12/26/2023 9:09 AM CDT Narrative [facility] - 12/26/2023 9:50 AM CDT Testing was performed using the Xpert Xpress CoV2/Flu/RSV Assay on the [employer] GeneXpert Instrument. This test should be ordered for the detection of SARS-CoV-2, influenza, and RSV viruses in individuals who meet clinical and/or epidemiological criteria. Test performance is unknown in asymptomatic patients. This test is for in vitro diagnostic use under the FDA EUA for laboratories certified under CLIA to perform high or moderate complexity testing. This test has not been [...] test, if coinfection would change clinical management. This test was validated by the [facility]. These laboratories are certified under the Clinical Laboratory Improvement Amendments of 1988 (CLIA-88) as qualified to perform high complexity laboratory testing. Chidi Kim MD LAB - MICRO GENER AL ORDERABLES Performing Organization Address City/[facility] Co de Phone Number LABORATORY [facility] [address] [facility] Lab (1st floor, no room number) [place] [address] * Group A Streptococcus PCR Throat Swab (12/26/2023 9:02 AM CDT) [facility] Group A strep by PCR Not Detected Not Detected 12/26/2023 9:37 AM CDT LABORATORY Swab STRUCTURE OF ANTERIOR PORTION OF NECK / Unknown Non-blood Collection / Unknown 12/26/2023 9:02 AM CDT 12/26/2023 9:09 AM CDT [facility] LABORATORY - 12/26/2023 9:37 AM CDT The Xpert Xpress Strep A test, performed on the [employer], is a rapid, qualitative in vitro [...] reaction (PCR) to detect Streptococcus pyogenes DNA. Chidi Kim MD LAB - MICRO GENER AL ORDERABLES Performing Organization Address [facility] Co de Phone Number [facility] Lab [address] [facility] Lab (1st floor, no room number) [place] [phone] * (ABNORMAL) CBC with platelets and differential (12/21/2023 1:39 PM CDT) Only the most recent of2 resultswithin the time period is included. WBC Count 5.3 4.0 - 11.0 10e3/uL 12/21/2023 1:46 PM CDT LABORATORY RBC Count 4.73 3.80 - 5.20 10e6/uL 12/21/2023 1:46 PM CDT LABORATORY Hemoglobin 12.4 11.7 - 15.7 g/dL 12/21/2023 1:46 PM CDT [facility] Hematocrit 39.3 35.0 - 47.0 % 12/21/2023 1:46 PM CDT [facility] MCV 83 78 - 100 fL 12/21/2023 1:46 PM CDT [facility] MCH 26.2(L) 26.5 - 33.0 pg 12/21/2023 1:46 PM CDT [facility] MCHC 31.6 31.5 - 36.5 g/dL 12/21/2023 1:46 PM CDT [facility] RDW 12.5 10.0 - 15.0 % 12/21/2023 1:46 PM CDT [facility] Platelet Count 248 150 - 450 10e3/uL 12/21/2023 1:46 PM CDT [facility] % Neutrophils 48 % 12/21/2023 1:46 PM CDT [facility] % Lymphocytes 40 % 12/21/2023 1:46 PM CDT [facility] % Monocytes 5 % 12/21/2023 1:46 PM CDT [facility] % Eosinophils 6 % 12/21/2023 1:46 PM CDT [facility] % Basophils 0 % 12/21/2023 1:46 PM CDT [facility] % Immature Granulocytes 0 % 12/21/2023 1:46 PM CDT [facility] Absolute Neutrophils 2.6 1.6 - 8.3 10e3/uL 12/21/2023 1:46 PM CDT [facility] Absolute Lymphocytes 2.1 0.8 - 5.3 10e3/uL 12/21/2023 1:46 PM CDT [facility] Absolute Monocytes 0.3 0.0 - 1.3 10e3/uL 12/21/2023 1:46 PM CDT [facility] Absolute Eosinophils 0.3 0.0 - 0.7 10e3/uL 12/21/2023 1:46 PM CDT [facility] Absolute Basophils 0.0 0.0 - 0.2 10e3/uL 12/21/2023 1:46 PM CDT [facility] Absolute Immature Granulocytes 0.0 <=0.4 10e3/uL 12/21/2023 1:46 PM CDT [facility] Blood BLOOD SPECIMEN / Unknown Venipuncture / Unknown 12/21/2023 1:39 PM CDT 12/21/2023 1:39 PM CDT Jaret Helen Cortez [facility] LAB - BLOOD ORD ERABLES [facility] Lab [address] [facility] Lab (no room number, 1st floor of clinic) [place] [address], [facility] [phone] * HIV Antigen Antibody Combo Coos (12/21/2023 1:39 PM CDT) Only the most recent of2 resultswithin the time period is included. HIV Antigen Antibody Combo Nonreactive Nonreactive 12/22/2023 2:42 AM CDT [facility] Comment:Negative HIV-1 p24 a ntigen and HIV-1/2 antibody screening test results usually indicate the absence of HIV-1 and HIV-2 infection. However, such negative results do not rule-out acute HIV infection. If acute HIV-1 or HIV-2 infection is suspected, detection of HIV-1 or HIV-2 RNA is recommended. Blood BLOOD SPECIMEN / Unknown Venipuncture / Unknown 12/21/2023 1:39 PM CDT 12/21/2023 1:39 PM CDT Jaret Talishadimitry Diego [facility] LAB - BLOOD ORD ERABLES LABORATORY [facility] [place] [facility] [address] [facility], [address] [address], [facility] * Treponema Abs w Reflex to RPR and Titer (12/21/2023 1:39 PM CDT) Only the most recent of2 resultswithin the time period is included. Treponema Antibody Total Nonreactive Nonreactive 12/21/2023 6:44 PM CDT [facility] CORE/PROT/EN DO Blood BLOOD SPECIMEN / Unknown Venipuncture / Unknown 12/21/2023 1:39 PM CDT 12/21/2023 1:39 PM CDT Jaret Helen Cortez [facility] LAB - BLOOD ORD ERABLES SPECIALTY CORE/PROT/ENDO Specialty Core/Prot/Endo [address] [facility], [address] * Hepatitis C antibody (12/21/2023 1:39 PM CDT) Only the most recent of2 resultswithin the time period is included. Pathologist [facility] Hepatitis C Antibody Nonreactive Nonreactive 12/22/2023 2:27 AM CDT [facility] Comment:A nonreactive screen ing test result does not exclude the possibility of exposure to or infection with HCV. Nonreactive screening test results in individuals with prior exposure to HCV may be due to antibody levels below the limit of detection of this assay or lack of reactivity to the HCV antigens used in this assay. Patients with recent HCV infections (<3 months from time of exposure) may have false- negative HCV antibody results due to the time needed for seroconversion (average of 8 to 9 weeks). Blood BLOOD SPECIMEN / Unknown Venipuncture / Unknown 12/21/2023 1:39 PM CDT 12/21/2023 1:39 PM CDT Jaret Cortez APRN [employer] LAB - BLOOD ORD ERABLES LABORATORY [facility] [place] [facility] [address] [facility], [address] [id number] * D dimer quantitative (12/21/2023 1:39 PM CDT) Pathologist [facility] D-Dimer Quantitative <0.27 0.00 - 0.50 ug/mL FEU 12/21/2023 2:51 PM CDT [facility] Blood BLOOD SPECIMEN / Unknown Venipuncture / Unknown 12/21/2023 1:39 PM CDT 12/21/2023 1:39 PM CDT Narrative [facility] - 12/21/2023 2:51 PM CDT This D-dimer assay is intended for use in conjunction with a clinical pretest probability assessment model to exclude pulmonary embolism (PE) and deep venous thrombosis (DVT) in outpatients suspected of PE or DVT. The cut-off value is 0.50 ug/mL FEU. Jaret Cortez STORAGE AND BACKUP ADMINISTRATOR [employer] LAB - BLOOD ORD ERABLES [facility] Lab [address] [facility] Lab (1st floor, no room number) [place] [address], [facility] * Comprehensive metabolic panel (12/21/2023 1:39 PM CDT) Only the most recent of2 resultswithin the time period is included. [facility] Sodium 138 135 - 145 mmol/L 12/21/2023 2:51 PM CDT [facility] Comment:Reference intervals for this test were updated on 04/05/2023 to more accurately reflect our healthy population. There may be differences in the flagging of prior results with similar values performed with this method. Interpretation of those prior results can be made in the context of the updated reference intervals. Potassium 4.3 3.4 - 5.3 mmol/L 12/21/2023 2:51 PM CDT LABORATORY Carbon Dioxide (CO2) 23 22 - 29 mmol/L 12/21/2023 2:51 PM CDT [facility] Anion Gap 13 7 - 15 mmol/L 12/21/2023 2:51 PM CDT [facility] Urea Nitrogen 13.0 6.0 - 20.0 mg/dL 12/21/2023 2:51 PM CDT [facility] Creatinine 0.64 0.51 - 0.95 mg/dL 12/21/2023 2:51 PM CDT [facility] GFR Estimate >90 >60 mL/min/1. 73m2 12/21/2023 2:51 PM CDT [facility] Calcium 9.5 8.6 - 10.0 mg/dL 12/21/2023 2:51 PM CDT [facility] Chloride 102 98 - 107 mmol/L 12/21/2023 2:51 PM CDT [facility] Glucose 91 70 - 99 mg/dL 12/21/2023 2:51 PM CDT [facility] Alkaline Phosphatase 54 40 - 150 U/L 12/21/2023 2:51 PM CDT [facility] AST 21 0 - 45 U/L 12/21/2023 2:51 PM CDT [facility] Comment:Reference intervals for this test were updated on 12/20/2022 to more accurately reflect our healthy population. There may be differences in the flagging of prior results with similar values performed with this method. Interpretation of those prior results can be made in the context of the updated reference intervals. ALT 22 0 - 50 U/L 12/21/2023 2:51 PM CDT [facility] Comment:Reference intervals for this test were updated on 12/20/2022 to more accurately reflect our healthy population. There may be differences in the flagging of prior results with similar values performed with this method. Interpretation of those prior results can be made in the context of the updated reference intervals. Protein Total 7.7 6.4 - 8.3 g/dL 12/21/2023 2:51 PM CDT [facility] Albumin 4.3 3.5 - 5.2 g/dL 12/21/2023 2:51 PM CDT [facility] Bilirubin Total 0.4 <=1.2 mg/dL 12/21/2023 2:51 PM CDT [facility] Blood BLOOD SPECIMEN / Unknown Venipuncture / Unknown 12/21/2023 1:39 PM CDT 12/21/2023 1:39 PM CDT Bauj Helen Diego GEEN [employer] LAB - BLOOD ORD ERABLES [facility]AT[facility] Lab [address] [facility] Lab (1st floor, no room number) [place] [address] * XR Chest 2 Views (12/21/2023 1:26 PM CDT) Anatomical Region Laterality Modality Chest Computed Radiogr aphy Impressions 12/21/2023 1:36 PM CDT IMPRESSION: There are no acute infiltrates. The cardiac silhouette is not enlarged. Pulmonary vasculature is unremarkable. CHIDI SCHWARTZ MD Narrative 12/21/2023 1:36 PM CDT CHEST TWO VIEWS 12/21/2023 1:26 PM HISTORY: SOB and chest tightness. R/O acute etiology.; Chest tightness; SOB (shortness of breath) COMPARISON: May 19, 2023 Procedure Note Chidi Schwartz MD - 12/21/2023 CHEST TWO VIEWS 12/21/2023 1:26 PM HISTORY: SOB and chest tightness. R/O acute etiology.; Chest tightness; SOB (shortness of breath) COMPARISON: May 19, 2023 IMPRESSION: There are no acute infiltrates. The cardiac silhouette is not enlarged. Pulmonary vasculature is unremarkable. CHIDI SCHWARTZ MD Jaret Cortez APRN, CNP IMG DIAGNOSTIC IMAGING ORDERABLES * Chlamydia trachomatis/Neisseria gonorrhoeae by PCR - Clinic Collect (12/21/2023 12:44 PM CDT) Only the most recent of2 resultswithin the time period is included. Chlamydia Trachomatis Negative Negative 12/22/2023 11:38 AM CDT [facility] Comment: Negative for C. trachomatis rRNA by baggage and mail agent mediated amplification. A negative result by baggage and mail agent mediated amplification does not preclude the presence of infection because results are dependent on proper and adequate collection, absence of inhibitors and sufficient rRNA to be detected. Neisseria gonorrhoeae Negative Negative 12/22/2023 11:38 AM CDT [facility] Comment:Negative for N. gono rrhoeae rRNA by baggage and mail agent mediated amplification. A negative result by baggage and mail agent mediated amplification does not preclude the presence of C. trachomatis infection because results are dependent on proper and adequate collection, absence of inhibitors and sufficient rRNA to be detected. Swab VAGINAL STRUCTURE / Unknown Non-blood Collection / Unknown 12/21/2023 12:44 PM CDT 12/21/2023 12:54 PM CDT Jaret Cortez APRN, CNP LAB - MICRO GEN ERAL ORDERABLES [facility] Inf. Diseases Diag. Lab [address] [facility], [address] [place] [address], [facility] * UA Microscopic with Reflex to Culture (12/21/2023 12:44 PM CDT) Only the most recent of2 resultswithin the time period is included. Bacteria Urine None Seen None Seen /HPF [place] 12/21/2023 1:05 PM CDT [facility] RBC Urine None Seen 0-2 /HPF /HPF [place] 12/21/2023 1:05 PM CDT [facility] WBC Urine None Seen 0-5 /HPF /HPF [place] 12/21/2023 1:05 PM CDT [facility] Urine MID-STREAM URINE SPECIMEN / Unknown Non-blood Collection / Unknown 12/21/2023 12:44 PM CDT 12/21/2023 12:54 PM CDT Narrative [facility] - 12/21/2023 1:05 PM CDT Urine Culture not indicated Bauj Helen Cortez STORAGE AND BACKUP ADMINISTRATOR [employer] LAB - URINE ORD ERABLES LABORATORY [facility] Lab [address] [facility] Lab (no room number, 1st floor of clinic) [place] [address], [facility] [phone] * UA with Microscopic reflex to Culture - Clinic Collect (12/21/2023 12:44 PM CDT) Color Urine Yellow Colorless, Straw, Light Yellow, Yellow 12/21/2023 12:58 PM CDT [facility] Appearance Urine Clear Clear 12/21/19 12:58 PM CDT [facility] Glucose Urine Negative Negative mg/dL 12/21/2023 12:58 PM CDT [facility] Bilirubin Urine Negative Negative 12:58 PM CDT [facility] Ketones Urine Negative Negative mg/dL 12/21/2023 12:58 PM CDT [facility] Specific Ona Urine 1.010 1.003 - 1.035 12/21/2023 12:58 PM CDT [facility] Blood Urine Negative Negative 12/21/2023 12:58 PM CDT [facility] pH Urine 7.0 5.0 - 7.0 12/21/2023 12:58 PM CDT [facility] Protein Albumin Urine Negative Negative mg/dL 12/21/2023 12:58 PM CDT [facility] Urobilinogen Urine 0.2 0.2, 1.0 E.U./dL 12/21/2023 12:58 PM CDT [facility] Nitrite Urine Negative Negative 12/21/2023 12:58 PM CDT [facility] Leukocyte Esterase Urine Negative Negative 12/21/2023 12:58 PM CDT LABORATORY Urine MID-STREAM URINE SPECIMEN / Unknown Non-blood Collection / Unknown 12/21/2023 12:44 PM CDT 12/21/2023 12:54 PM CDT Jaret Cortez APRN, CNP LAB - URINE ORD ERABLES Performing Organization Address City/[facility]/ZIP Co de Phone Number LABORATORY [facility] Lab [address] [facility] Lab (no room number, 1st floor of [facility]) [place] [address], [facility] [phone] * (ABNORMAL) Wet prep - Clinic Collect (12/21/2023 12:44 PM CDT) Only the most recent of2 resultswithin the time period is included. Trichomonas Absent Absent [place] 12/21/2023 1:12 PM CDT LABORATORY Yeast Absent Absent [place] 12/21/2023 1:12 PM CDT LABORATORY Clue Cells Absent Absent [place] 12/21/2023 1:12 PM CDT LABORATORY WBCs/high power field 2+(A) None [place] 12/21/2023 1:12 PM CDT LABORATORY Swab VAGINAL STRUCTURE / Unknown Non-blood Collection / Unknown 12/21/2023 12:44 PM CDT 12/21/2023 12:54 PM CDT Jaret Cortez APRN, CNP LAB - MICRO GEN ERAL ORDERABLES Performing Organization Address City/[facility]/ZIP Co de Phone Number LABORATORY [facility] Lab [address] [facility] Lab (no room number, 1st floor of clinic) [place] [address], [facility] [phone] * EKG 12-lead complete w/read - Clinics (12/21/2023) Only the most recent of2 resultswithin the time period is included. Jaret Cortez APRN, CNP ECG ORDERABLES * US Abdomen Limited (11/24/2023 9:30 AM CDT) Anatomical Region Laterality Modality Abdomen/Pelvis Ultrasound Impressions 11/24/2023 4:03 PM CDT IMPRESSION: ??Fatty liver. Hepatomegaly. No gallstones identified. HILL LAO MD SYSTEM ID: [id number] Narrative 11/24/2023 4:03 PM CDT ULTRASOUND ABDOMEN LIMITED 11/24/2023 9:30 AM CLINICAL HISTORY: Right upper abdomen pain, evaluate for gallbladder. Epigastric pain. TECHNIQUE: Limited abdominal ultrasound. COMPARISON: None. FINDINGS: GALLBLADDER: The gallbladder is normal. No gallstones, wall thickening, or pericholecystic fluid. Negative sonographic Lovelace's sign. BILE DUCTS: There is no biliary dilatation. The common duct measures 2 mm. LIVER: Fatty liver. Enlarged liver measuring 20.5 cm. No focal observation. RIGHT KIDNEY: No hydronephrosis. PANCREAS: The visualized portions of the pancreas are normal. No ascites. Procedure Note Hill Lao MD - 11/24/2023 ULTRASOUND ABDOMEN LIMITED 11/24/2023 9:30 AM CLINICAL HISTORY: Right upper abdomen pain, evaluate for gallbladder. Epigastric pain. TECHNIQUE: Limited abdominal ultrasound. COMPARISON: None. FINDINGS: GALLBLADDER: The gallbladder is normal. No gallstones, wall thickening, or pericholecystic fluid. Negative sonographic Lovelace's sign. BILE DUCTS: There is no biliary dilatation. The common duct measures 2 mm. LIVER: Fatty liver. Enlarged liver measuring 20.5 cm. No focal observation. RIGHT KIDNEY: No hydronephrosis. PANCREAS: The visualized portions of the pancreas are normal. No ascites. IMPRESSION: Fatty liver. Hepatomegaly. No gallstones identified. HILL LAO MD SYSTEM ID: [id number] Lauren Claudio PA-C Kaye US ORDERABLES * Hepatitis B surface antigen (11/14/2023 10:43 AM CDT) Hepatitis B Surface Antigen Nonreactive Nonreactive 11/14/2023 8:10 PM CDT [facility] Blood BLOOD SPECIMEN / Unknown Venipuncture / Unknown 11/14/2023 10:43 AM CDT 11/14/2023 10:45 AM CDT Yolande Mora MD LAB - BLOOD ORDERABL ES [facility] 500 [facility], [address] [place] [address], [facility] * (ABNORMAL) UA Macroscopic with reflex to Microscopic and Culture - Lab Collect (11/14/2023 9:51 AM CDT) Color Urine Yellow Colorless, Straw, Light Yellow, Yellow 11/14/2023 10:13 AM CDT LABORATORY Appearance Urine Clear Clear 11/14/19 10:13 AM CDT LABORATORY Glucose Urine Negative Negative mg/dL 11/14/2023 10:13 AM CDT LABORATORY Bilirubin Urine Negative Negative 10:13 AM CDT LABORATORY Ketones Urine Negative Negative mg/dL 11/14/2023 10:13 AM CDT LABORATORY Specific Ona Urine 1.010 1.003 - 1.035 11/14/2023 10:13 AM CDT LABORATORY Blood Urine Trace(A) Negative 11/14/2023 10:13 AM CDT LABORATORY pH Urine 7.0 5.0 - 7.0 11/14/2023 10:13 AM CDT LABORATORY Protein Albumin Urine Negative Negative mg/dL 11/14/2023 10:13 AM CDT LABORATORY Urobilinogen Urine 0.2 0.2, 1.0 E.U./dL 11/14/2023 10:13 AM CDT LABORATORY Nitrite Urine Negative Negative 11/14/2023 10:13 AM CDT LABORATORY Leukocyte Esterase Urine Negative Negative 11/14/2023 10:13 AM CDT LABORATORY Urine URINE SPECIMEN OBTAINED BY CLEAN CATCH PROCEDURE / Unknown Non-blood Collection / Unknown 11/14/2023 9:51 AM CDT 11/14/2023 10:04 AM CDT Yolande Mora MD LAB - URINE ORDERABL ES LABORATORY [facility] Lab [address] [facility] Lab (no room number, 1st floor of clinic) [place] [address] [phone] * Urine Culture Aerobic Bacterial - lab collect (11/14/2023 9:51 AM CDT) Culture <10,000 CFU/mL Mixture of Urogenital Darlene 11/15/2023 10:53 AM CDT [facility] Urine URINE SPECIMEN OBTAINED BY CLEAN CATCH PROCEDURE / Unknown Non-blood Collection / Unknown 11/14/2023 9:51 AM CDT 11/14/2023 10:04 AM CDT Yolande Mora MD LAB - MICRO GENERAL ORDERABLES [facility] Inf. Diseases Diag. Lab 500 [facility], [address] [place] [address] * (ABNORMAL) Vitamin B6 (11/04/2023 7:36 PM CDT) Only the most recent of2 resultswithin the time period is included. Vitamin B6 184.4(H) 20.0 - 125.0 nmol/L 11/09/2023 8:17 AM CDT [facility] Comment: INTERPRETIVE INFORMATION: Vitamin B6 (Pyridoxal 5-Phosphate) Pyridoxal 5'-phosphate measured in a specimen collected following an 8-hour or overnight fast accurately indicates vitamin B6 nutritional status. Non-fasting specimen concentration reflects recent vitamin intake. This test was developed and its performance characteristics determined by [facility]. It has not been cleared or approved by the US Food and Drug Administration. This test was performed in a CLIA certified laboratory and is intended for clinical purposes. Performed By: [facility] [address] [place] [address] Climatology Teacher: Johnny Smith MD, PhD CLIA Number: [id number] Blood BLOOD SPECIMEN / Unknown Venipuncture / Unknown 11/04/2023 7:36 PM CDT 11/04/2023 7:36 PM CDT Anthony Lazcano PA-C LAB - BLOOD ORDERABLES [facility] [address] [place] [address], [facility] [phone] * TSH with free T4 reflex (11/04/2023 7:36 PM CDT) TSH 3.02 0.30 - 4.20 uIU/mL 11/05/2023 6:38 PM CDT [facility] Blood BLOOD SPECIMEN / Unknown Venipuncture / Unknown 11/04/2023 7:36 PM CDT 11/04/2023 7:36 PM CDT Anthony Lazcano PA-C LAB - BLOOD ORDERABLES [facility] 500 [facility], [address] * Vitamin B12 (11/04/2023 7:36 PM CDT) Only the most recent of2 resultswithin the time period is included. Vitamin B12 999 232 - 1,245 pg/mL 11/05/2023 7:43 PM CDT [facility] Blood BLOOD SPECIMEN / Unknown Venipuncture / Unknown 11/04/2023 7:36 PM CDT 11/04/2023 7:36 PM CDT Anthony Lazcano PA-C LAB - BLOOD ORDERABLES [facility] 500 [facility], [address] [id number] * Basic metabolic panel (Ca, Cl, CO2, Creat, Gluc, K, Na, BUN) (11/04/2023 7:36 PM CDT) Pathologist [facility] Sodium 139 135 - 145 mmol/L 11/05/2023 6:38 PM CDT [facility] Comment:Reference intervals for this test were updated on 04/05/2023 to more accurately reflect our healthy population. There may be differences in the flagging of prior results with similar values performed with this method. Interpretation of those prior results can be made in the context of the updated reference intervals. Potassium 4.0 3.4 - 5.3 mmol/L 11/05/2023 6:38 PM CDT [facility] Chloride 105 98 - 107 mmol/L 11/05/2023 6:38 PM CDT [facility] Carbon Dioxide (CO2) 23 22 - 29 mmol/L 11/05/2023 6:38 PM CDT [facility] Anion Gap 11 7 - 15 mmol/L 11/05/2023 6:38 PM CDT [facility] Urea Nitrogen 14.1 6.0 - 20.0 mg/dL 11/05/2023 6:38 PM CDT [facility] Creatinine 0.59 0.51 - 0.95 mg/dL 11/05/2023 6:38 PM CDT [facility] GFR Estimate >90 >60 mL/min/1. 73m2 11/05/2023 6:38 PM CDT [facility] Calcium 9.5 8.6 - 10.0 mg/dL 11/05/2023 6:38 PM CDT [facility] Glucose 82 70 - 99 mg/dL 11/05/2023 6:38 PM CDT [facility] Blood BLOOD SPECIMEN / Unknown Venipuncture / Unknown 11/04/2023 7:36 PM CDT 11/04/2023 7:36 PM CDT Anthony Lazcano PA-C LAB - BLOOD ORDERABLES [facility] 500 [facility], [address] [place] [address] * Vitamin K (10/27/2023 4:33 PM CDT) [facility] Vitamin K 2.33 0.22 - 4.88 nmol/L 11/01/2023 10:50 AM CDT [facility] Comment: INTERPRETIVE INFORMATION: Vitamin K1, Serum Vitamin K concentration is reported as nanomoles per liter (nmol/L). To convert concentration to nanograms per milliliter (ng/mL), multiply the result by 0.45. This test was developed and its performance characteristics determined by [facility]. It has not been cleared or approved by the US Food and Drug Administration. This test was performed in a CLIA certified laboratory and is intended for clinical purposes. Performed By: [facility] [address] [place] [address] Climatology Teacher: Johnny Smith MD, PhD CLIA Number: [id number] Blood BLOOD SPECIMEN / Unknown Venipuncture / Unknown 10/27/2023 4:33 PM CDT 10/27/2023 4:33 PM CDT Lauren ALCALA-C LAB - BLOOD ORDERA BLES Performing Organization Address [facility]/ZIP Co de Phone Number [facility] [employer] [facility] [employer] [address] [place] [address], [facility] [phone] * Vitamin E (10/27/2023 4:33 PM CDT) [facility] Vitamin E 13.7 5.5 - 18.0 mg/L 10/31/2023 4:38 PM CDT [facility] [employer] Comment: This test was developed and its performance characteristics determined by [facility]. It has not been cleared or approved by the US Food and Drug Administration. This test was performed in a CLIA certified laboratory and is intended for clinical purposes. Vitamin E Gamma 0.4 0.0 - 6.0 mg/L 10/31/2023 4:38 PM CDT [employer] Comment: Performed By: [facility] [address] [place] [address] Climatology Teacher: Johnny Smith MD, PhD CLIA Number: [id number] Blood BLOOD SPECIMEN / Unknown Venipuncture / Unknown 10/27/2023 4:33 PM CDT 10/27/2023 4:33 PM CDT Lauren ALCALA-C LAB - BLOOD ORDERA BLES Performing Organization Address [facility]/ZIP Co de Phone Number [facility] [employer] [facility] [employer] [address] [place] [address], [facility] [phone] * Vitamin D Deficiency (10/27/2023 4:33 PM CDT) Vitamin D, Total (25-Hydroxy) 29 20 - 50 ng/mL 10/29/2023 10:14 PM CDT U [facility] Comment:optimum levels Blood BLOOD SPECIMEN / Unknown Venipuncture / Unknown 10/27/2023 4:33 PM CDT 10/27/2023 4:33 PM CDT [facility] - 10/29/2023 10:14 PM CDT Season, race, dietary intake, and treatment affect the concentration of 50-wykhkht-Tyjcbps D. Values may decrease during winter months and increase during summer months. Vitamin D determination is routinely performed by an immunoassay specific for 25 hydroxyvitamin D3. ??If an individual is on vitamin D2(ergocalciferol) supplementation, please specify 25 [place] vitamin D2 and D3 level determination by LCMSMS test VITD23. Lauren Claudio PA-C LAB - BLOOD ORDERA BLES U [facility] 500 [facility], [address] [place] [address] * Vitamin A (10/27/2023 4:33 PM CDT) Vitamin A 0.78 0.30 - 1.20 mg/L 10/31/2023 4:38 PM CDT [facility] Retinol Palmitate 0.03 0.00 - 0.10 mg/L 10/31/2023 4:38 PM CDT [facility] Vitamin A Interp Normal 10/31/19 24 4:38 PM CDT [facility] Comment: This test was developed and its performance characteristics determined by [facility]. It has not been cleared or approved by the US Food and Drug Administration. This test was performed in a CLIA certified laboratory and is intended for clinical purposes. Performed By: [facility] [address] [place] [address] Climatology Teacher: Johnny Smith MD, PhD CLIA Number: [id number] Blood BLOOD SPECIMEN / Unknown Venipuncture / Unknown 10/27/2023 4:33 PM CDT 10/27/2023 4:33 PM CDT Lauren Claudio PA-C LAB - BLOOD ORDERA BLES [facility] [address] [place] [phone], [facility] [phone] * Lipase (10/27/2023 4:33 PM CDT) Lipase 44 13 - 60 U/L 10/29/2023 10:14 PM CDT [facility] Blood BLOOD SPECIMEN / Unknown Venipuncture / Unknown 10/27/2023 4:33 PM CDT 10/27/2023 4:33 PM CDT Lauren Claudio PA-C LAB - BLOOD ORDERA BLES [facility] 500 [facility], [address] * IgA (10/27/2023 4:33 PM CDT) Immunoglobulin A 164 84 - 499 mg/dL 10/31/2023 12:31 PM CDT [facility]/END O Blood BLOOD SPECIMEN / Unknown Venipuncture / Unknown 10/27/2023 4:33 PM CDT 10/27/2023 4:33 PM CDT Lauren Claudio PA-C LAB - BLOOD ORDERA BLES [facility]/PROT/ENDO [facility]/Prot/Endo 500 [facility] Building, [address] * ESR: Erythrocyte sedimentation rate (10/27/2023 4:33 PM CDT) Erythrocyte Sedimentation Rate 8 0 - 20 mm/hr 10/27/2023 4:44 PM CDT [facility] Blood BLOOD SPECIMEN / Unknown Venipuncture / Unknown 10/27/2023 4:33 PM CDT 10/27/2023 4:33 PM CDT Lauren Claudio PA-C LAB - BLOOD ORDERA BLESylvia [facility] LABORATORY [facility] Lab [address] [facility] Lab (no room number, 1st floor of clinic) [place] [address], [facility] [phone] * CRP, inflammation (10/27/2023 4:33 PM CDT) CRP Inflammation <3.00 <5.00 mg/L 10/29/19 10:14 PM CDT [facility] Blood BLOOD SPECIMEN / Unknown Venipuncture / Unknown 10/27/2023 4:33 PM CDT 10/27/2023 4:33 PM CDT Lauren Claudio PA-C LAB - BLOOD ORDERA BLESylvia [facility] 500 [facility], Room [address] [place] [address] * Pap screen reflex to HPV if [...] Clinical Information none 09/25/2021 10:27 AM CDT [facility] Reflex Testing Yes if ASCUS 09/26/19 10:27 AM CDT [facility] Previous Abnormal? No 09/25/2021 10:27 AM CDT [facility] Performing Labs The technical component of this testing was completed at [facility] 09/25/2021 10:27 AM CDT [facility] Brushing CERVIX UTERI STRUCTURE / Unknown 09/22/2021 3:14 PM CDT 09/22/2021 3:48 PM CDT Marija Edgar APRN [employer]EL[employer] SAMUEL - KANCHAN AP [facility] 500 [facility], [address] [place] [address], [facility] [phone] from Last 3 Months or Most Recently Relevant to Health Maintenance Advance Directives For more information, please contact: [phone] * Full Code (Latest Code Status on File) Date Activated Date Inactivated Comments 01/14/2021 7:36 AM 01/15/2021 6:05 PM All basic and advanced life-sustaining interventions are performed as appropriate Question Answer Comments Code status determined by: Discussion with patie nt/ legal decision maker Care Teams Registered Radiologic Technologist Relationship Specialty Start Date End Date Esha Grimm PA-C [address] [place] [address] PCP - General Family Medicine 05/04/23 Diana Desir, [facility] [address] [place] [address] Pharmacist Pharmacist 04/17/21 Rain Galaviz PA-C [address] [place] [address] ENMA KNUTSON [address] Physician Pediatric Allergist Dermatology 04/28/21 Tavia Wyatt MD [address] [place] [address] ENMA KNUTSON [address] Dermatology 07/14/21 Erica Farrell APRN [employer] [address] [facility] [address] [place] [address] Nurse Practitioner Cardiovascular Disease 09/09/21 Rich Barrett MD [address] [facility] [address] [place], [place] [address] Physician Ophthalmology 01/21/22 [place] MD 500 [place], [place] 844[address] Dermatology 02/24/22 Diana Desir, [facility] [address] [place], [place] 495696 Assigned [place] Pharmacist 04/07/22 Livan Sharif MD [address] [place] [address] Cardiovascular Disease 05/14/22 Catherine Cm MD 6405 [facility] S [facility] [address] [place] [address] Cardiovascular Disease 07/21/22 Valery Veronica, PA-C [address] [place], [place] 939385 Physician Pediatric Allergist Dermatology 07/21/22 Brea Quinn APRN [employer] [address] [place], [place] 48[address] Nurse Practitioner Dermatology 09/21/22 Brea Quinn APRN [employer] [address] [facility] [place] 04[address] Assigned Surgical Provider 10/09/22 [place] [address] [facility] [address] [place] [address] Assigned Musculoskeletal Provider 10/09/22 Alfonso Renteria MD [address] [facility] [address] [place], [place] 478[address] Assigned Neuroscience Provider 04/02/23 Radha Lomeli, ARLENE [employer] [address] [facility] [address] [place], [place] [address] Assigned Heart and Vascular Provider 05/28/23 Jelena David OD [address] [facility] [place] [address] MD Ophthalmology 06/15/23 Esha Grimm PA-C [address] [place] [phone] Assigned PCP 07/16/23 Valery Veronica PA-C [address] [place] [address] [phone] Physician Pediatric Allergist Dermatology 09/19/23 Rey Tay MD [address] [place], [place] [address]22[address] Gastroenterology 09/20/23 Rocky Zepeda DO [address] [place] [address] Physician Gastroenterology 09/20/23 Philip Dumont MD [address] [place] [address] Physician Ophthalmology 09/22/23 Meredith Carrera PA-C [address] [place] [address] Assigned Gastroenterology Provider 11/01/23 Neil [place] MD [address] [place] [address] Dermatology 11/02/23 [place] [address] [place], [place] [address] Neurological Surgery 12/26/23
--- OUTSIDE RECORDS SUMMARY | 2024-01-07 18:04 | XMS_ITS | Encounter Summary ---
Author Organization [place] Address [address] [place] [address] Care Team Providers Care Truck Spotter Name Role Phone Thang Diana [place] [facility] Unavailable [phone] Rain Galaviz PA-C Unavailable Tavia Wyatt MD Unavailable Unavailable Erica Farrell APRN WORKGROUP LEADER Unavailable Rich Barrett MD Unavailable Neil [place] MD Unavailable Diana Desir Stanislav [facility] Unavailable [phone] Livan Sharif MD Unavailable Catherine Cm MD Unavailable + Valery Veronica PA-C Unavailable [phone] Brea Quinn WORKFORCE MANAGEMENT CONSULTANT WORKGROUP LEADER Unavailable [phone] Brea Quinn WORKFORCE MANAGEMENT CONSULTANT WORKGROUP LEADER Unavailable Jose Francisco Johnson MD Unavailable Alfonso Renteria MD Unavailable + [phone] Esha Grimm PA-C Primary Care Provider Radha Lomeli WORKFORCE MANAGEMENT CONSULTANT WORKGROUP LEADER Unavailable [phone] Jelena David OD Unavailable [phone] Esha Grimm Adam PA-C Unavailable [phone] Valery VeronicaC Unavailable Rey Tay MD Unavailable Rocky Zepeda Unavailable Philip Dumont MD Unavailable Meredith Carrera-C Unavailable [phone] Neil [place] MD Unavailable Juan Pablo Emmanuel MD Unavailable Reason for Visit * Reason Onset Date Comments Appointment 01/06/2024 Encounter Details Date Type Department Care Team (Late st Contact Info) Description 01/06/2024 Telephone [facility] Neurology [address], [address] [place] [address] [place] [address] [place] [address] Appointment Social History Tobacco Use Types Packs/Day [...] 0 10/25/2023 [facility] - [...] exercise at this level? 30 min 03/10/2023 [place] Depression Scale Answer Date Recorded [place] [...] in an abandoned building, in an overnight nursing home, or couch-surfing.) Yes 07/14/2023 Are you [...] encounter Miscellaneous Notes * Telephone Encounter - Amanda Ascencio - 01/06/2024 11:36 AM CDT Attempted to reach patient to remind them about appointment scheduled with Juan Pablo Emmanuel MD on 01/09/24 in our [place] location. A voicemail was left with a call back number if the patient has questions or would like to reschedule. documented in this encounter Plan of Treatment Upcoming Encounters Date Type Department Care Team (Late st Contact Info) Description 01/09/2024 10:15 AM CDT Office Visit [facility] Neurology [facility] - [address], [address] [place] [address] Genny Hyman PA-C [facility] Epilepsy Care 57[address] [facility] 255 [place], [place] [address] [place] [address] [place] [address] 02/06/2024 10:00 AM CDT Office Visit [facility] [address] [address] Neil [place] MD 500 [place] [address] 03/06/2024 3:00 PM CDT Office Visit [facility] Heart [facility] [address] [place] [address] [place] [phone] Radha Lomeli APRN CNP [address] [place] [address] 03/07/2024 9:00 AM CDT Hospital Encounter [facility] [address] [place] [phone] Rocky Zepeda DO [address] [place], [place] [address] 03/07/2024 9:00 AM CDT - 03/07/2024 9:30 AM CDT Surgery [address] [phone] Rocky Zepeda DO [address] [place] [address] Esophagoscopy, gastroscopy, duodenoscopy (EGD), combined Scheduled Procedures Name Priority Associated Diagnoses Date/Ti in ESOPHAGOGASTRODUODENOSCOPY Eosinophilic esophagitis Esophageal dysphagia 03/07/2024 9:00 AM CDT documented as of this encounter Visit Diagnoses Not on filedocumented in this encounter Additional Health Concerns Assessment Noted Time PHQ-9 Depression Total Score: 4 06/20/20 23 8:40 AM [employer] documented as of this encounter Care Teams Truck Spotter Relationship Specialty Start Date End Date Esha Grimm PA-C [address] [place] [phone] PCP - General Family Medicine 05/04/23 Diana Desir, [facility] [address] [place] [address] Pharmacist Pharmacist 04/17/21 Rain Galaviz PA-C [address] [place] [address] [address] [place] [address] Physician Glue Bone Crusher Dermatology 04/28/21 Tavia Wyatt MD [address] [place] [address] [address] [facility] [place] [address] Dermatology 07/14/21 Erica Farrell, ARLENE WORKGROUP LEADER [address] [place] [address] Nurse Practitioner Cardiovascular Disease 09/09/21 Rich Barrett MD [address] [facility] 9[address] [place], [place] [address] Physician Ophthalmology 01/21/22 Neil [place] MD 500 [place], [place] [address] Dermatology 02/24/22 Diana Desir, [facility] [address] [place] [address] Assigned MTM Pharmacist 04/07/22 Livan Sharif MD [address] [facility] [address] [place] [address] Cardiovascular Disease 05/14/22 Catherine Cm MD 6[address] [facility] [address] [place] [address] Cardiovascular Disease 07/21/22 Valery Veronica PA-C [address] [place] [address] Physician Glue Bone Crusher Dermatology 07/21/22 Brea Quinn APRN WORKGROUP LEADER 500 [place] [address] Nurse Practitioner Dermatology 09/21/22 Brea Quinn APRN WORKGROUP LEADER [address] [place] [address] Assigned Surgical Provider 10/09/22 [place] [address] [address] Assigned Musculoskeletal Provider 10/09/22 Alfonso Renteria MD 5775 [facility] 200 [place], [place] [address] Assigned Neuroscience Provider 04/02/23 Radha Lomeli APRN WORKGROUP LEADER [address] [place] [address] Assigned Heart and Vascular Provider 05/28/23 Jelena David OD [address] [facility] [place] [address] MD Ophthalmology 06/15/23 Esha Grimm PA-C [address] [place] [address] Assigned PCP 07/16/23 Valery Veronica PA-C [address] [place] [address] Physician Glue Bone Crusher Dermatology 09/19/23 Rey Tay MD [address] [place] [id number] MD Gastroenterology 09/20/23 Rocky Zepeda DO [address] [place] [address] 748965 Physician Gastroenterology 09/20/23 Philip [place] MD [address] [place] [address]50[address] Physician Ophthalmology 09/22/23 Meredith [place] PA-C [address] [place] [address]46[address] Assigned Gastroenterology Provider 11/01/23 Neil [place] MD [address] [address] Dermatology 11/02/23 [place] [address] [place] [address] Neurological Surgery 12/26/23 documented as of this encounter
--- OUTSIDE RECORDS SUMMARY | 2024-01-07 18:04 | XMS_ITS | Clinical Summary ---
Author Organization [facility] Address [address] [place] [address] Care Team Providers Care Traffic Analysis Technician Name Role Phone ThangKendrickDiana T [facility] Unavailable aRin Galaviz PA-C Unavailable Tavia Wyatt MD Unavailable Unavailable Erica Farrell APRN COMPUTER NETWORK AND SYSTEMS ENGINEER Unavailable Rich Barrett MD Unavailable Neil Kent MD Unavailable Diana Desir Stanislav [facility] Unavailable [phone] Livan Sharif MD Unavailable Catherine Cm MD Unavailable + Valery Veronica PA-C Unavailable [phone] Brea Qiunn RN GYNECOLOGY COMPUTER NETWORK AND SYSTEMS ENGINEER Unavailable Brea Quinn RN GYNECOLOGY COMPUTER NETWORK AND SYSTEMS ENGINEER Unavailable Jose Francisco Johnson MD Unavailable Alfonso Renteria MD Unavailable + [phone] Esha Grimm PA-C Primary Care Provider [phone] Radha Lomeli RN GYNECOLOGY COMPUTER NETWORK AND SYSTEMS ENGINEER Unavailable [phone] Jelena David OD Unavailable Wicho Grimmlincoln Medina PA-C Unavailable [phone] Valery Veronica PA-C Unavailable Rey Tay MD Unavailable Rocky Zepeda Unavailable Philip Dumont MD Unavailable [phone] Meredith Carrera PA-C Unavailable [phone] Neil Kent MD Unavailable Juan Pablo Emmanuel MD Unavailable Allergies Active Allergy Reactions Criticality [...] available in ED consider consultation with ED Director Of Infection Prevention. Relevant Medical History (at time Care Plan initiated): Seizures (on 500mg Keppra daily), SVT (on 12.5mg metoprolol daily), Anxiety and Depression Past imaging: CT: 3 in the 12 months prior to initiation of care plan. MRI: 0 in the 12 months prior to initiation of care plan. ED Ultrasound: 8 in the 12 months prior to initiation of care plan. Total [facility] ED visits in 12 months prior to initiation of Care Plan: 11 [facility]missions in 12 months prior to initiation of Care Plan: 0 (she has technically had 2 admissions due to related issues with OBGYN) Expected home rescue plan: Metoprolol 12.5mg PRN PCP: Marija Edgar APRN CNP - [facility] Medicine - [facility] Specialists: Dr. Galo Burrell - Cardiology - [facility] Deelincoln Dotson - Neurology - [facility] Epilepsy Care Care Coordination: Has worked with Community Health Worker in past - ARACELIS Parker, Clinical Care Coordination - [facility] ([place], [place] and [place]) - Follow up plan after an ED visit: Marija Edgar APRN CNP - [facility] - [facility] Initiated: 2020 Problem Noted Date Diagnosed Date Paroxysmal supraventricular tachycardia (H24) SVT (supraventricular tachycardia) (H24) 022 Encounter for pharmacogenetic testing 04/17/2021 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 JANENE (generalized anxiety disorder) 09/29/2020 Asthma 06/04/2020 Right ureteral stone 05/27/2020 Overview: Added automatically from request for surgery [id number] Left ureteral stone 05/27/2020 Overview: Added automatically from request for surgery [id number] Head ache 02/18/2020 Seizure 05/02/2019 Depressed 05/02/2019 Anxiety 05/02/2019 Tobacco abuse counseling 05/02/2019 Psoriasis 05/02/2019 Resolved Problems Problem Noted Date Diagnosed Date Resolved Date Neck pain 08/25/2022 08/17/2023 Lower back pain 08/25/2022 08/17/2023 Term 01/13/2021 10/11/2022 Encounter for triage in patient 12/09/2020 04/18/2023 Encounters Date Type Department Care Team Description 01/06/2024 10:53 AM CDT - 01/06/2024 11:59 PM CDT Hospital Encounter [facility] [address] [place] [address] Ebony Cid APRN CNP Chiari malformation type I (H); Numbness and tingling of upper extremity; Abnormal finding on MRI of brain Discharge Disposition: Home or Self Care 01/06/2024 Telephone [facility] [place] [address] [place] [address], [address] [place] [address] Juan Pablo Emmanuel MD Appointment 01/05/2024 1:40 PM CDT Office Visit [facility] [address] [facility] [address] [place] [address] Ebony Cid APRN COMPUTER NETWORK AND SYSTEMS ENGINEER Abnormal finding on MRI of brain (Primary Dx); Chiari malformation type I (H); Numbness and tingling of upper extremity; Neck pain 01/05/2024 Travel 01/02/2024 PRE VISIT [facility] [place] [address] [place] [address] Juan Pablo Emmanuel MD Pre Visit Planning - 2 Attempts (Pre charting) 12/26/2023 9:32 AM CDT - 12/26/2023 10:06 AM CDT Emergency [facility] Emergency Dept [address] [place] [address] Chidi Kim MD Chest tightness Discharge Disposition: Home or Self Care 12/26/2023 Travel 12/26/2023 Telephone [facility] [address] [place] [phone] Esha Grimm PA-C Same Day Appointment (sore throat, body aches, headaches couple days) 12/23/2023 Travel 12/21/2023 1:20 PM CDT Ancillary Procedure [address] [phone] Jaret Cortez APRN COMPUTER NETWORK AND SYSTEMS ENGINEER Chest tightness; SOB (shortness of breath) 12/21/2023 12:40 PM CDT Office Visit [address] [phone] Jaret Cortez APRN COMPUTER NETWORK AND SYSTEMS ENGINEER Vaginal odor (Primary Dx); Chest tightness; SOB (shortness of breath) 12/21/[address] [phone] Livan Sharif MD Call Back (Schedule appt tomorrow ) 12/21/2023 Travel 12/02/[address] [place] [phone] Radha Lomeli APRN COMPUTER NETWORK AND SYSTEMS ENGINEER Appointment (Clarification) 11/29/2023 MyC Medical Advice [address] [phone] Esha Grimm PA-C 11/29/2023 Telephone [facility] [address], [address] [place] [address] Genny Hyman PA-C 11/24/2023 8:20 AM CDT - 11/24/2023 11:59 PM CDT Hospital Encounter [facility] [address] [facility] [address] [place] [address] Lauren Claudio PA-C Epigastric pain Discharge Disposition: Home or Self Care 11/24/2023 Travel 11/22/2023 Refill [facility] [address] [facility] [address] [place] [phone] Radha Lomeli APRN COMPUTER NETWORK AND SYSTEMS ENGINEER Refill Request (metoprolol) 11/21/2023 MyC Medical Advice [facility] [address] [place] [phone] Sofia Alcantar 11/21/2023 MyC Medical Advice [facility] [address] [place] [address] Sofia Alcantar 11/18/2023 Telephone [facility] [address] [facility], [address] [place] [phone] Alfonso Renteria MD 11/17/[address] [phone] Brea Quinn APRN COMPUTER NETWORK AND SYSTEMS ENGINEER Refill Request (Ketoconazole 2% shampoo) 11/16/2023 MyC Medical Advice [address] [phone] Asiya Reddy RN 11/16/[address] [address] Esha Grimm PA-C Referral 11/15/2023 MyC Medical Advice [facility] [place] [address] [place] [phone] Vivian Grant 11/14/2023 11:00 AM CDT Office Visit [facility] [place] [address] [place] [address] Yolande Mora MD Urinary problem (Primary Dx); Screen for STD (sexually transmitted disease); Yeast infection of the vagina 11/14/2023 Travel 11/04/2023 6:35 PM CDT Office Visit [facility] [address] [place] [address] Anthony Lazcano PA-C Atypical chest pain (Primary Dx); Tingling of both upper extremities; Numbness and tingling of left leg; Elevated vitamin B12 level 11/04/2023 Travel 10/30/2023 Telephone [facility] [address] [place] [phone] Tiffanie Washburn RN Abnormal Labs 10/27/2023 4:00 PM CDT Office Visit [address] [phone] Lauren Claudio PA-C Epigastric pain (Primary Dx); Eosinophilic esophagitis; Hiatal hernia; Anxiety; Vitamin deficiency; Breast tenderness; Dizziness; Shakiness 10/27/2023 Telephone [facility] [address] [phone] Rocky Zepeda DO 10/27/2023 Travel 10/26/2023 6:35 PM CDT Office Visit [facility] [address] [place] [address] Pao Mullen APRN CNP 10/26/2023 Travel 10/26/2023 MyC Medical Advice [facility] [address] [phone] Wesley Powell 10/25/2023 11:30 AM CDT Virtual Visit [facility] [address] [phone] Eosinophilic esophagitis (Primary Dx); Esophageal dysphagia 10/25/2023 MyC Medical Advice [facility] [address] [phone] Nelly Mesa, DADA 10/25/2023 MyC Medical Advice [facility] [address] [phone] Sherry Wesley 10/25/2023 Telephone [facility] [address] [phone] None Procedure (EGD) 10/25/2023 Telephone [facility] [address] [address] Meredith Carrera PA-C Appointment 10/24/[address] [phone] Esha Grimm PA-C 10/24/2023 Telephone [facility] [address] [phone] Meredith Carrera PA-C Call Back 10/24/2023 MyC Medical Advice [facility] [address] [phone] Kenneth Denson 10/21/2023 Telephone [facility] [address] [phone] Meredith Carrera PA-C Medication Question (omeprazole ) 10/21/[address] [phone] Esha Grimm PA-C Medication Update 10/21/2023 MyC Medical Advice [facility] [address] [phone] Bob Diop 10/20/2023 MyC Medical Advice [address] [phone] Esha Grimm PA-C Outreach 10/18/2023 Telephone [facility] [address] [place] [address] Esha Grimm PA-C Sinus Problem 10/17/2023 Telephone [facility] [address] [place] [address] Esha Grimm PA-C Appointment 10/13/2023 10:45 AM CDT Office Visit [facility] [place] [address] [facility] 4th [place] [address] Meredith Carrera PA-C Eosinophilic esophagitis (Primary Dx); Esophageal dysphagia 10/13/2023 Travel 10/12/2023 Travel 10/10/2023 4:20 PM CDT Office Visit [facility] [address] [phone] Jaron Hager PA-C Congestion of paranasal sinus (Primary Dx) 10/10/2023 Travel from Last 3 Months Immunizations Name Administration [...] Answer Date Recorded PHQ-2 Score 0 10/25/2023 [facility] - Occupational [...] exercise at this level? 30 min 03/10/2023 [place] Depression Scale Answer Date Recorded [place] Depression Score 5 01/14/2021 Last EPDS Self [...] in an abandoned building, in an overnight detention, or couch-surfing.) Yes 07/14/2023 Are you worried [...] Description 01/09/2024 10:15 AM CDT Office Visit [facility] [address], [address] [place] [address] Genny Hyman PA-C [facility] Epilepsy [facility] [address] [facility] [address] [place] [address] [place] [address] [place] [address] 02/06/2024 10:00 AM CDT [facility] [address] [phone] Neil Kent MD [address] [place], [place] [phone] 03/06/2024 3:00 PM CDT Office Visit [facility] [address] [place] [phone] Radha Lomeli, RN GYNECOLOGY COMPUTER NETWORK AND SYSTEMS ENGINEER [address] [place] [address] 03/07/2024 9:00 AM CDT Hospital Encounter [facility] [address] [place] [address] [address] [place] [phone] Rocky Zepeda DO [address] [place], [place] [address] 03/07/2024 9:00 AM CDT - 03/07/2024 9:30 AM CDT Surgery [address] [place] [phone] Rocky Zepeda DO [address] [place], [place] [phone] Esophagoscopy, gastroscopy, duodenoscopy (EGD), combined Scheduled Procedures Name Priority Associated Diagnoses Date/Ti me ESOPHAGOGASTRODUODENOSCOPY Eosinophilic esophagitis Esophageal dysphagia 03/07/2024 9:00 AM CDT Health Maintenance Due Date Last Done Comments ADVANCE CARE PLANNING 2000 ASTHMA ACTION PLAN 06/24/2021 06/24/2020, 06/24/2020 Pneumococcal Vaccine: Pediatrics (0 to 5 Years) and At-Risk Patients (6 to 64 Years) (2 of 2 - PCV) 09/22/2022 09/22/2021, 2000, 2000, Additional history exists COVID-19 Vaccine ( season) 2023 PHQ-9 12/20/2023 06/20/2023, 1112/2022, 05/02/2023, Additional history exists ASTHMA CONTROL TEST 03/01/2024 09/01/2023, 03/10/2023, 08/27/2022, Additional history exists ANNUAL REVIEW OF HM ORDERS 03/10/202403/10, 09/22/2021, 06/24/2020 YEARLY PREVENTIVE VISIT 03/10/2024 03/10/20, 09/22/2021, 06/24/2020, Additional history exists INFLUENZA VACCINE (Season Ended) 2024 04/02/2021, 03/27/2020, 05/02/2019, Additional history exists PAP 09/22/2024 09/22/2021 CHLAMYDIA SCREENING 12/20/2024 12/21/2023, 11/14/2023, 10/06/2023, Additional history exists DTAP/TDAP/TD IMMUNIZATION (8 - Td or Tdap) 11/11/2030 11/11/2020, 08/10/2011, 11/23/2004, Additional history exists HEPATITIS B IMMUNIZATION Completed 002, 08/07/2001, 03/28/2001, Additional history exists IPV IMMUNIZATION Completed 11/23/2004, , 2000, Additional history exists HPV IMMUNIZATION Completed 03/01/2012, , 08/10/2011 MENINGITIS IMMUNIZATION Completed 05/16/2017, 08/10 DEPRESSION ACTION PLAN Completed 04/17/2021, 2020 HEPATITIS C SCREENING Completed 12/21/2023 , 11/14/2023, 11/05/2019 HIV SCREENING Completed 12/21/2023, 05/0 12/2023, 09/01/2023, Additional history exists RSV MONOCLONAL ANTIBODY Aged [...] ACTION PLAN Routine 06/24/2020 3: 56 PM PICK PULLING MACHINE TENDER from Last 3 Months or Most Recently [...] MR BRAIN W/O and W CONTRAST LOCATION: [facility] DATE: 01/06/2024 INDICATION: numbness tingling both arms [...] MR BRAIN W/O and W CONTRAST LOCATION: [facility] DATE: 01/06/2024 INDICATION: numbness tingling both arms and chest, torso. Recheck [id number] and hx Chiari and right parietal abnormality, [...] at the right lateral aspect of the G8ngcznoiim body. Ebony Cid RN GYNECOLOGY COMPUTER NETWORK AND SYSTEMS ENGINEER IMG MRI ORDERABLES * MR Brain w/o [...] MR BRAIN W/O and W CONTRAST LOCATION: [facility] DATE: 01/06/2024 INDICATION: numbness tingling both arms [...] MR BRAIN W/O and W CONTRAST LOCATION: [facility] DATE: 01/06/2024 INDICATION: numbness tingling both arms and chest, torso. Recheck [id number] and hx Chiari and right parietal abnormality, [...] at the right lateral aspect of the I7cxvurflib body. Ebony Cid APRN COMPUTER NETWORK AND SYSTEMS ENGINEER IMG MRI ORDERABLES * EKG 12 lead (12/26/2023 9:56 AM CDT) Systolic Blood Pressure mmHg RADIOLOGY RESULTS Diastolic Blood Pressure mmHg RADIOLOGY RESULTS Ventricular Rate 65 BPM RAD IOLOGY RESULTS Atrial Rate 65 BPM RADIOLOG Y RESULTS AZ Interval 148 ms RADIOLOG Y RESULTS QRS Duration 90 ms RADIOLO GY RESULTS QT 382 ms RADIOLOGY RESULTS QTc 397 ms RADIOLOGY RESULTS P [place] 65 degrees RADIOLOGY RESULTS R AXIS 69 degrees RADIOLOGY RESULTS T [place] 60 degrees RADIOLOGY RESULTS Interpretation ECG Sinus rhythm Normal ECG When compared with ECG of 07-SEP-2023 18:14, QT has shortened Unconfirmed report - interpretation of this ECG is computer generated - see medical record for final interpretation Confirmed by - EMERGENCY ROOM, PHYSICIAN ([id number]), assistant editor Saleem Gomez ([id number]) on 12/26/2023 10:17:45 AM RADIOLOGY RESULTS 12/26/2023 [...] the Xpert Xpress CoV2/Flu/RSV Assay on the Exam18 GeneXpert Instrument. This test should be ordered [...] management. This test was validated by the [facility]. These laboratories are certified under the Clinical Laboratory Improvement Amendments of 1988 (CLIA-88) as qualified to perform high complexity laboratory testing. Chidi Kim MD LAB - MICRO GENER AL ORDERABLES Performing Organization Address [facility] Co de Phone Number [facility] [address] [facility] Lab (1st floor, no room number) [place] [phone] [place] [address] * Group A Streptococcus PCR Throat Swab (12/26/2023 9:02 AM CDT) [facility] Group A strep by PCR Not Detected Not Detected 12/26/2023 9:37 AM CDT LABORATORY Swab STRUCTURE OF ANTERIOR PORTION OF NECK / Unknown Non-blood Collection / Unknown 12/26/2023 9:02 AM CDT 12/26/2023 9:09 AM CDT Narrative LABORATORY - 12/26/2023 9:37 AM CDT The Xpert Xpress Strep A test, performed on the [employer], is a rapid, qualitative in vitro [...] MICRO GENER AL ORDERABLES Performing Organization Address [facility] Co de Phone Number [facility] [address] [facility], no room number) [place] [phone] * (ABNORMAL) CBC with platelets and differential (12/21/2023 1:39 PM CDT) Only the most recent of2 resultswithin the time period is included. [facility] WBC Count 5.3 4.0 - 11.0 10e3/uL 12/21/2023 1:46 PM CDT LV LABORATORY RBC Count 4.73 3.80 - 5.20 10e6/uL 12/21/2023 1:46 PM CDT [facility] LABORATORY Hemoglobin 12.4 11.7 - 15.7 g/dL [...] 0.0 <=0.4 10e3/uL 12/21/2023 1:46 PM CDT LABORATORY Blood BLOOD SPECIMEN / Unknown Venipuncture / Unknown 12/21/2023 1:39 PM CDT 12/21/2023 1:39 PM CDT Jaret Helen Cortez [facility] LAB - BLOOD ORD ERABLES LABORATORY [facility] [address] [facility] (no room number, 1st floor of [facility]) [place] [address], [facility] [phone] * HIV Antigen Antibody Combo [place] (12/21/2023 1:39 PM CDT) Only the most recent of2 resultswithin the time period is included. HIV Antigen Antibody Combo Nonreactive Nonreactive 12/22/2023 2:42 AM CDT LABORATORY Comment:Negative HIV-1 p24 a ntigen and [...] 12/21/2023 1:39 PM CDT Jaret Cortez APRN [facility] LAB - BLOOD ORD ERABLES LABORATORY [facility] [employer] Core Lab [address] [facility], [address] [place] [address], [facility] * Treponema Abs w Reflex to RPR and Titer (12/21/2023 1:39 PM CDT) Only the most recent of2 resultswithin the time period is included. Treponema Antibody Total Nonreactive Nonreactive 12/21/2023 6:44 PM CDT SPECIALTY CORE/PROT/EN DO Blood BLOOD SPECIMEN / Unknown Venipuncture / Unknown 12/21/2023 1:39 PM CDT 12/21/2023 1:39 PM CDT Augustbhavanaaltagracia Cortez [facility] LAB - BLOOD ORD ERABLES SPECIALTY CORE/PROT/ENDO Specialty Core/Prot/Endo [address] [facility], Room [id number] [place] [address] * Hepatitis C antibody (12/21/2023 1:39 PM CDT) Only the most recent of2 resultswithin the time period is included. Pathologist [facility] Hepatitis C Antibody Nonreactive Nonreactive 12/22/2023 2:27 AM CDT LABORATORY Comment:A nonreactive screen ing test result [...] 1:39 PM CDT 12/21/2023 1:39 PM CDT Jaert Cortez APRN [facility] LAB - BLOOD ORD ERABLES LABORATORY [facility] [employer] Core Lab [address] [facility], [address] [address], [place] * D dimer quantitative (12/21/2023 1:39 PM CDT) Pathologist [facility] D-Dimer Quantitative <0.27 0.00 - 0.50 ug/mL [facility] 12/21/2023 2:51 PM CDT LABORATORY Blood BLOOD SPECIMEN / Unknown Venipuncture / Unknown 12/21/2023 1:39 PM CDT 12/21/2023 1:39 PM CDT [facility] LABORATORY - 12/21/2023 2:51 PM CDT This D-dimer assay is intended for use in conjunction with a clinical pretest probability assessment model to exclude pulmonary embolism (PE) and deep venous thrombosis (DVT) in outpatients suspected of PE or DVT. The cut-off value is 0.50 ug/mL FEU. Jaret Cortez RN GYNECOLOGY COMPUTER NETWORK AND SYSTEMS ENGINEER LAB - BLOOD ORD ERABLES RH LABORATORY [facility] [address] [facility] Lab (1st floor, no room number) [place] [address], [facility] * Comprehensive metabolic panel (12/21/2023 1:39 PM CDT) Only the most recent of2 resultswithin the time period is included. [facility] Sodium 138 135 - 145 mmol/L [...] - 5.3 mmol/L 12/21/2023 2:51 PM CDT RH LABORATORY Carbon Dioxide (CO2) 23 22 - [...] 1:39 PM CDT 12/21/2023 1:39 PM CDT Augustuj Helen Cortez RN GYNECOLOGY COMPUTER NETWORK AND SYSTEMS ENGINEER LAB - BLOOD ORD ERABLES RH LABORATORY [facility] [address] Lab (1st floor, no room number) [place] [address], [facility] * XR Chest 2 Views (12/21/2023 [...] Comment: Negative for C. trachomatis rRNA by clinical trial data manager mediated amplification. A negative result by clinical trial data manager mediated amplification does not preclude the presence of infection because results are dependent on proper and adequate collection, absence of inhibitors and sufficient rRNA to be detected. Neisseria gonorrhoeae Negative Negative 12/22/2023 11:38 AM CDT [facility] Comment:Negative for N. gono rrhoeae rRNA by clinical trial data manager mediated amplification. A negative result by clinical trial data manager mediated amplification does not preclude the presence of C. trachomatis infection because results are dependent on proper and adequate collection, absence of inhibitors and sufficient rRNA to be detected. Swab VAGINAL STRUCTURE / Unknown Non-blood Collection / Unknown 12/21/2023 12:44 PM CDT 12/21/2023 12:54 PM CDT Jaret Cortez APRN, CNP LAB - MICRO GEN ERAL ORDERABLES [facility] Inf. Diseases Diag. Lab [address] [facility], [address] [place] [address] * UA Microscopic with Reflex to Culture [...] 1:05 PM CDT Urine Culture not indicated Babhavanaj Helen Cortez APRN COMPUTER NETWORK AND SYSTEMS ENGINEER LAB - URINE ORD ERABLES LV LABORATORY [facility] [address] [facility] Lab (no room number, 1st floor of clinic) [place] [address], [facility] [phone] * UA with Microscopic reflex to Culture - Clinic Collect (12/21/2023 12:44 PM CDT) Color Urine Yellow Colorless, Straw, Light Yellow, Yellow 12/21/2023 12:58 PM CDT [facility] LAB[facility]ATORY Appearance Urine Clear Clear 12/21/19 24 12:58 PM CDT [facility] LAB[facility] Glucose Urine Negative Negative mg/dL 12/21/2023 12:58 PM CDT LV LABORATORY Bilirubin Urine Negative Negative 12:58 PM CDT [facility] LAB[facility] Ketones Urine Negative Negative mg/dL 12/21/2023 12:58 PM CDT LV LABORATORY Specific Clint Urine 1.010 1.003 - 1.035 12/21/2023 12:58 PM CDT LV LABORATORY Blood Urine Negative Negative 12/21/2023 12:58 PM CDT LV LAB[facility]AT[facility] pH Urine 7.0 5.0 - 7.0 12/21/2023 12:58 PM CDT LV LAB[facility] Protein Albumin Urine Negative Negative mg/dL 12/21/2023 12:58 PM CDT LABORATORY Urobilinogen Urine 0.2 0.2, 1.0 E.U./dL 12/21/2023 12:58 PM CDT LV LAB[facility] Nitrite Urine Negative Negative 12/21/2023 12:58 PM CDT LV LAB[facility] Leukocyte Esterase Urine Negative Negative 12/21/2023 12:58 PM CDT LV LABORATORY Urine MID-STREAM URINE SPECIMEN / Unknown Non-blood Collection / Unknown 12/21/2023 12:44 PM CDT 12/21/2023 12:54 PM CDT Jaret Cortez APRN, CNP LAB - URINE ORD ERABLES Performing Organization Address City/[facility]/ZIP Co de Phone Number LABORATORY [address] Lab (no room number, 1st floor of [facility]) [place] [address], [facility] [phone] * (ABNORMAL) Wet prep - Clinic Collect [...] MICRO GEN ERAL ORDERABLES Performing Organization Address [facility]/ZIP Co de Phone Number LABORATORY [address] Lab (no room number, 1st floor of [facility]) [place] [address], [facility] [phone] * EKG 12-lead complete w/read - Clinics (12/21/2023) Only the most recent of2 resultswithin the time period is included. Jaret Cortez APRN COMPUTER NETWORK AND SYSTEMS ENGINEER ECG ORDERABLES * US Abdomen Limited (11/24/2023 9:30 AM CDT) Anatomical Region Laterality Modality Abdomen/Pelvis Ultrasound Impressions 11/24/2023 4:03 PM CDT IMPRESSION: ??Fatty liver. Hepatomegaly. No gallstones identified. [facility] ID: ??[id number] Narrative 11/24/2023 4:03 PM CDT ULTRASOUND ABDOMEN [...] gallstones identified. [facility] ID: [id number] Lauren Claudio PA-C IMG US ORDERABLES * Hepatitis B surface antigen (11/14/2023 10:43 AM CDT) Hepatitis B Surface Antigen Nonreactive Nonreactive 11/14/2023 8:10 PM CDT [facility] Blood BLOOD SPECIMEN / Unknown Venipuncture / Unknown 11/14/2023 10:43 AM CDT 11/14/2023 10:45 AM CDT Yolande Mora MD LAB - BLOOD ORDERABL ES [facility] LABORATORY [facility] [employer] [facility] [address] [facility], Room [address] [place] [address] * (ABNORMAL) UA Macroscopic with reflex to Microscopic and Culture - Lab Collect (11/14/2023 9:51 AM CDT) Color Urine Yellow Colorless, Straw, Light Yellow, Yellow 11/14/2023 10:13 AM CDT [facility] Appearance Urine Clear Clear 11/14/19 10:13 AM CDT [facility] Glucose Urine Negative Negative mg/dL 11/14/2023 10:13 AM CDT [facility] Bilirubin Urine Negative Negative 10:13 AM CDT [facility] Ketones Urine Negative Negative mg/dL 11/14/2023 10:13 AM CDT [facility] Specific Clint Urine 1.010 1.003 - 1.035 11/14/2023 10:13 AM CDT [facility] Blood Urine Trace(A) Negative 11/14/2023 10:13 AM CDT [facility] pH Urine 7.0 5.0 - 7.0 11/14/2023 10:13 AM CDT [facility] Protein Albumin Urine Negative Negative mg/dL 11/14/2023 10:13 AM CDT [facility] LAB[facility] Urobilinogen Urine 0.2 0.2, 1.0 E.U./dL 11/14/2023 10:13 AM CDT [facility] LAB[facility] Nitrite Urine Negative Negative 11/14/2023 10:13 AM CDT [facility] Leukocyte Esterase Urine Negative Negative 11/14/2023 10:13 AM CDT [facility] LAB[facility]ORY Urine URINE SPECIMEN OBTAINED BY CLEAN CATCH PROCEDURE / Unknown Non-blood Collection / Unknown 11/14/2023 9:51 AM CDT 11/14/2023 10:04 AM CDT Yolande Mora MD LAB - URINE ORDERABL ES LABORATORY [facility] [address] [facility] Lab (no room number, 1st floor of clinic) [place] [address], [facility] [phone] * Urine Culture Aerobic Bacterial - lab collect (11/14/2023 9:51 AM CDT) Culture <10,000 CFU/mL Mixture of Urogenital Darlene 11/15/2023 10:53 AM CDT [facility] IDD LABORATORY Urine URINE SPECIMEN OBTAINED BY CLEAN CATCH PROCEDURE / Unknown Non-blood Collection / Unknown 11/14/2023 9:51 AM CDT 11/14/2023 10:04 AM CDT Yolande Mora MD LAB - MICRO GENERAL ORDERABLES [facility] LABORATORY [facility] Inf. Diseases Diag. Lab 500 [facility], [address] [place] [address], [facility] * (ABNORMAL) Vitamin B6 (11/04/2023 7:36 PM CDT) Only the most recent of2 resultswithin the time period is included. Vitamin B6 184.4(H) 20.0 - 125.0 nmol/L 11/09/2023 8:17 AM CDT [employer] Comment: INTERPRETIVE INFORMATION: Vitamin B6 (Pyridoxal 5-Phosphate) Pyridoxal 5'-phosphate measured in a specimen collected following an 8-hour or overnight fast accurately indicates vitamin B6 nutritional status. Non-fasting specimen concentration reflects recent vitamin intake. This test was developed and its performance characteristics determined by [employer]. It has not been cleared or approved by the US Food and Drug Administration. This test was performed in a CLIA certified laboratory and is intended for clinical purposes. Performed By: [facility] [address] [place] [address] Stonework Tracer: Johnny Smith MD, PhD CLIA Number: [id number] Blood BLOOD SPECIMEN / Unknown Venipuncture / Unknown 11/04/2023 7:36 PM CDT 11/04/2023 7:36 PM CDT Anthony Lazcano PA-C LAB - BLOOD ORDERABLES [facility] [address] [place] [address], [facility] [phone] * TSH with free T4 reflex (11/04/2023 7:36 PM CDT) TSH 3.02 0.30 - 4.20 uIU/mL 11/05/2023 6:38 PM CDT [facility] Blood BLOOD SPECIMEN / Unknown Venipuncture / Unknown 11/04/2023 7:36 PM CDT 11/04/2023 7:36 PM CDT Anthony Lazcano PA-C LAB - BLOOD ORDERABLES Performing Organization Address City/[facility]/ZIP Co de Phone Number U LABORATORY [facility] [employer] [facility] Lab [address] [facility], [address] * Vitamin B12 (11/04/2023 7:36 PM CDT) Only the most recent of2 resultswithin the time period is included. Vitamin B12 999 232 - 1,245 pg/mL 11/05/2023 7:43 PM CDT U LABORATORY Blood BLOOD SPECIMEN / Unknown Venipuncture / Unknown 11/04/2023 7:36 PM CDT 11/04/2023 7:36 PM CDT Anthony Lazcano PA-C LAB - BLOOD ORDERABLES U LABORATORY [facility] [employer] [facility] 500 [facility], [address] * Basic metabolic panel (Ca, Cl, CO2, Creat, Gluc, K, Na, BUN) (11/04/2023 7:36 PM CDT) Sodium 139 135 - 145 mmol/L 11/05/2023 [...] PA-C LAB - BLOOD ORDERABLES [facility] [employer] [facility] 500 [facility], [address] [place] [address] * Vitamin K (10/27/2023 4:33 PM CDT) Vitamin K 2.33 0.22 - 4.88 nmol/L 11/01/2023 10:50 AM CDT [employer] Comment: INTERPRETIVE INFORMATION: Vitamin K1, Serum Vitamin K concentration is reported as nanomoles per liter (nmol/L). To convert concentration to nanograms per milliliter (ng/mL), multiply the result by 0.45. This test was developed and its performance characteristics determined by [employer]. It has not been cleared or approved by the US Food and Drug Administration. This test was performed in a CLIA certified laboratory and is intended for clinical purposes. Performed By: [facility] [address] [place] [address] Stonework Tracer: Johnny Smith MD, PhD CLIA Number: [id number] Blood BLOOD SPECIMEN / Unknown Venipuncture / Unknown 10/27/2023 4:33 PM CDT 10/27/2023 4:33 PM CDT Lauren Claudio PA-C LAB - BLOOD ORDERA BLES [address] [address], [facility] [phone] * Vitamin E (10/27/2023 4:33 PM CDT) [facility] Vitamin E 13.7 5.5 - 18.0 mg/L 10/31/2023 4:38 PM CDT [employer] Comment: This test was developed and its performance characteristics determined by [employer]. It has not been cleared or approved by the US Food and Drug Administration. This test was performed in a CLIA certified laboratory and is intended for clinical purposes. Vitamin E Gamma 0.4 0.0 - 6.0 mg/L 10/31/2023 4:38 PM CDT [employer] Comment: Performed By: [facility] [address] [place] [address] Stonework Tracer: Johnny Smith MD, PhD CLIA Number: [id number] Blood BLOOD SPECIMEN / Unknown Venipuncture / Unknown 10/27/2023 4:33 PM CDT 10/27/2023 4:33 PM CDT Lauren Claudio PA-C LAB - BLOOD ORDERA BLES [facility] [address] [place] [address], [facility] [phone] * Vitamin D Deficiency (10/27/2023 4:33 PM CDT) Vitamin D, Total (25-Hydroxy) 29 20 - 50 ng/mL 10/29/2023 10:14 PM CDT [facility] Comment:optimum levels Blood BLOOD SPECIMEN / Unknown Venipuncture / Unknown 10/27/2023 4:33 PM CDT 10/27/2023 4:33 PM CDT Narrative [facility] LAB[facility]ATORY - 10/29/2023 10:14 PM CDT Season, race, dietary intake, and treatment affect the concentration of 13-uwicmjs-Tpcfpvt D. Values may decrease during winter months and increase during summer months. Vitamin D determination is routinely performed by an immunoassay specific for 25 hydroxyvitamin D3. ??If an individual is on vitamin D2(ergocalciferol) supplementation, please specify 25 [place] vitamin D2 and D3 level determination by LCMSMS test VITD23. Lauren Claudio PA-C LAB - BLOOD ORDERA BLES [facility] LAB[facility]ATORY [facility] [employer] [facility] 500 [facility], [address] [address] * Vitamin A (10/27/2023 4:33 PM CDT) Vitamin A 0.78 0.30 - 1.20 mg/L 10/31/2023 4:38 PM CDT [facility] Retinol Palmitate 0.03 0.00 - 0.10 mg/L 10/31/2023 4:38 PM CDT [facility] Vitamin A Interp Normal 10/31/19 24 4:38 PM CDT [facility] Comment: This test was developed and its performance characteristics determined by [employer]. It has not been cleared or approved by the US Food and Drug Administration. This test was performed in a CLIA certified laboratory and is intended for clinical purposes. Performed By: [facility] [address] [place] [address] Stonework Tracer: Johnny Smith MD, PhD CLIA Number: [id number] Blood BLOOD SPECIMEN / Unknown Venipuncture / Unknown 10/27/2023 4:33 PM CDT 10/27/2023 4:33 PM CDT Lauren Claudio PA-C LAB - BLOOD ORDERA BLES [employer] [address] [place] [address], [facility] [phone] * Lipase (10/27/2023 4:33 PM CDT) Lipase 44 13 - 60 U/L 10/29/2023 10:14 PM CDT [facility] LAB[facility]AT[facility] Blood BLOOD SPECIMEN / Unknown Venipuncture / Unknown 10/27/2023 4:33 PM CDT 10/27/2023 4:33 PM CDT Lauren Claudio PA-C LAB - BLOOD ORDERA BLES Performing Organization Address [facility]/ZIP Co de Phone Number [facility] LABORATORY [facility] [employer] [facility] [address] [facility], [address] * IgA (10/27/2023 4:33 PM CDT) Immunoglobulin A 164 84 - 499 mg/dL 10/31/2023 12:31 PM CDT SPECIALTY CORE/PROT/END O Blood BLOOD SPECIMEN / Unknown Venipuncture / Unknown 10/27/2023 4:33 PM CDT 10/27/2023 4:33 PM CDT Lauren Claudio PA-C LAB - BLOOD ORDERA BLES SPECIALTY CORE/PROT/ENDO [facility] Specialty Core/Prot/Endo 500 [facility] [address] [facility], Room [address] [place] * ESR: Erythrocyte sedimentation rate (10/27/2023 4:33 PM CDT) Erythrocyte Sedimentation Rate 8 0 - 20 mm/hr 10/27/2023 4:44 PM CDT CR LABORATORY Blood BLOOD SPECIMEN / Unknown Venipuncture / Unknown 10/27/2023 4:33 PM CDT 10/27/2023 4:33 PM CDT Lauren Claudio PA-C LAB - BLOOD ORDERA BLES CR LABORATORY [facility] Lab [address] [facility] (no room number, 1st floor of clinic) [place] [address], [facility] [phone] * CRP, inflammation (10/27/2023 4:33 PM CDT) CRP Inflammation <3.00 <5.00 mg/L 10/29/19 10:14 PM CDT [facility] LABORATORY Blood BLOOD SPECIMEN / Unknown Venipuncture / Unknown 10/27/2023 4:33 PM CDT 10/27/2023 4:33 PM CDT Lauren Claudio PA-C LAB - BLOOD ORDERA BLES [facility] LABORATORY [facility] [employer] [facility] [address] [facility], [address] [place] [address] * Pap screen reflex to HPV if ASCUS - recommend age 25 - 29 (09/22/2021 3:14 PM CDT) Interpretation Negative for Intraepithelial Lesion or Malignancy (NILM) 09/25/2021 10:[address] [facility] Comment Papanicolaou Test Limitations: Cervical cytology [...] component of this testing was completed at [facility] 09/25/2021 10:27 AM CDT SPECIALTY LABS Brushing CERVIX UTERI STRUCTURE / Unknown 09/22/2021 3:14 PM CDT 09/22/2021 3:48 PM CDT Marija Edgar APRN COMPUTER NETWORK AND SYSTEMS ENGINEER LAB - [facility] LABS Specialty Lab 500 [facility], [address] [place] [address], [facility] [phone] from Last 3 Months or Most Recently Relevant to Health Maintenance Advance Directives For more information, please contact: [phone] * Full Code (Latest Code Status on File) Date Activated Date Inactivated Comments 01/14/2021 7:36 AM 01/15/2021 6:05 PM All basic and advanced life-sustaining interventions are performed as appropriate Question Answer Comments Code status determined by: Discussion with patie nt/ legal decision maker Care Teams Traffic Analysis Technician Relationship Specialty Start Date End Date Esha Grimm PA-C [address] [place] [address] PCP - General Family Medicine 05/04/23 Diana Desir, [facility] [place] [address] Pharmacist Pharmacist 04/17/21 Rain Galaviz PA-C [address] [place] [address] [address] [place] [address] Physician Knotting Machine Operator Portable Dermatology 04/28/21 Tavia Wyatt MD [address] [place] [address] [address] [place] [address] Dermatology 07/14/21 Erica Farrell APRN COMPUTER NETWORK AND SYSTEMS ENGINEER [address] [place], [place] [address] Nurse Practitioner Cardiovascular Disease 09/09/21 Rich Barrett MD [address] [facility], [facility] [address] [place] [address] Physician Ophthalmology 01/21/22 Neil Kent MD 500 [place] [address] Dermatology 02/24/22 Diana Desir, [facility] [address] [place], [place] [address] Assigned MTM Pharmacist 04/07/22 Livan Sharif MD [address] [place], [place] [address] Cardiovascular Disease 05/14/22 Catherine Cm MD [address] [address] Cardiovascular Disease 07/21/22 Valery Veronica, PAUcheC [address] [place], [place] [address] Physician Knotting Machine Operator Portable Dermatology 07/21/22 Brea Quinn APRN COMPUTER NETWORK AND SYSTEMS ENGINEER [address] [place], [place] [id number] Nurse Practitioner Dermatology 09/21/22 Brea Quinn APRN COMPUTER NETWORK AND SYSTEMS ENGINEER [address] [facility] [place] [address] Assigned Surgical Provider 10/09/22 [place] [address] [facility] 300 [place] [address] Assigned Musculoskeletal Provider 10/09/22 Alfonso Renteria MD [address] [facility] 200 [place], [place] [address] Assigned Neuroscience Provider 04/02/23 Radha Lomeli APRN COMPUTER NETWORK AND SYSTEMS ENGINEER [address] [facility] [address] [place] [address] Assigned Heart and Vascular Provider 05/28/23 Jelena David OD [address] [facility] [place] [address] Ophthalmology 06/15/23 Esha Grimm PA-C [address] [place] [address] Assigned PCP 07/16/23 Valery Veronica PA-C [address] [place], [place] [address] Physician Knotting Machine Operator Portable Dermatology 09/19/23 Rey Tay MD [address]09 [place], [place] [address] Gastroenterology 09/20/23 Rocky Zepeda DO [address] [place] [address] Physician Gastroenterology 09/20/23 Philip Dumont MD [address] [place] [address] Physician Ophthalmology 09/22/23 Meredith Carrera PA-C [address] [place] [address] Assigned Gastroenterology Provider 11/01/23 Neil Kent MD [address] [place] [address] Dermatology 11/02/23 [place] [address] [place] [address] [address] Neurological Surgery 12/26/23
--- OUTSIDE RECORDS SUMMARY | 2024-01-07 18:05 | XMS_ITS | Encounter Summary ---
Author Organization [facility] [place] Address [address] [place] [address] Care Team Providers Care Support Coordinator Name Role Phone Thang Diana [place] [facility] Unavailable Rain Galaviz PA-C Unavailable Tavia Wyatt MD Unavailable Unavailable Erica Farrell APRN GPS FIELD DATA COLLECTOR Unavailable Rich Barrett MD Unavailable Neil [place] MD Unavailable Diana Desir Stanislav [facility] Unavailable [phone] Livan Sharif MD Unavailable Catherine Cm MD Unavailable + Valery Veronica PA-C Unavailable [phone] Brea Quinn ECONOMIC DEVELOPER GPS FIELD DATA COLLECTOR Unavailable Brea Quinn ECONOMIC DEVELOPER GPS FIELD DATA COLLECTOR Unavailable Jose Francisco Johnson MD Unavailable Alfonso Renteria MD Unavailable + [phone] Esha Grimm PA-C Primary Care Provider [phone] Radha Lomeli ECONOMIC DEVELOPER GPS FIELD DATA COLLECTOR Unavailable [phone] Jelena David OD Unavailable [phone] Esha GrimmC Unavailable [phone] Valery VeronicaC Unavailable [phone] Rey Tay MD Unavailable Duane Rockyanne STEVENS Unavailable Philip Dumont MD Unavailable [phone] Meredith CarreraC Unavailable [phone] Neil Kent MD Unavailable Juan Pablo Emmanuel MD Unavailable [phone] Encounter Details Date Type Department Care Team (Latest Contact Info) Description 01/05/2024 Travel Social History Tobacco Use Types Packs/Day [...] week 03/10/2023 How often do you attend [facility] or tenriism services? 1 to 4 times [...] Answer Date Recorded PHQ-2 Score 0 10/25/2023 [facility] Occupat ional [facility] - Occupational Stress Questionnaire Answer Date [...] exercise at this level? 30 min 03/10/2023 Brinnon Depression Scale Answer Date Recorded Brinnon Depression Score 5 01/14/2021 Last EPDS Self [...] Answer Date Recorded Do you have housing? (Catherine alves is defined as stable permanent housing and does not include staying ouside in a car, in a tent, in an abandoned building, in an overnight fci, or couch-surfing.) Yes 07/14/2023 Are you worried [...] Description 01/09/2024 10:15 AM CDT Office Visit [facility] Neurology [facility] [address] [facility], [address] [place] [phone] Genny Hyman PAUcheC [facility] Epilepsy [facility] [address] [facility] [address] [place] [address] [place] [address] [facility] 300 [place], [place] [address] 02/06/2024 10:00 AM CDT Office Visit [facility] [address] [phone] Neil Kent MD 500 [place] [address] 03/06/2024 3:00 PM CDT Office Visit [facility] Heart [facility] [address] [facility] [address] [place] [phone] Radha Lomeli, ECONOMIC DEVELOPER GPS FIELD DATA COLLECTOR [address] [place], [place] [address] 03/07/2024 9:00 AM CDT Hospital Encounter [place] [id number] [facility] 5th [place] [phone] Rocky Zepeda DO 500 [place], [place] [address] 03/07/2024 9:00 AM CDT - 03/07/2024 9:30 AM CDT Surgery [address] [phone] Rocky Zepeda DO [address] [place], [place] [address] Esophagoscopy, gastroscopy, duodenoscopy (EGD), combined Scheduled Procedures Name Priority Associated Diagnoses Date/Ti nh ESOPHAGOGASTRODUODENOSCOPY Eosinophilic esophagitis Esophageal dysphagia 03/07/2024 9:00 AM CDT documented as of this encounter Visit Diagnoses Not on filedocumented in this encounter Additional Health Concerns Assessment Noted Time PHQ-9 Depression Total Score: 4 06/20/20 23 8:40 AM GROUNDMAN/LINEMAN documented as of this encounter Care Teams Support Coordinator Relationship Specialty Start Date End Date Esha Grimm PA-C [address] [place] [address] PCP - General Family Medicine 05/04/23 Diana Desir, [facility] [address] [place] [address] Pharmacist Pharmacist 04/17/21 Rain Galaviz PA-C [address] [place] [address] [address] [place] [address] Physician Records And Tape Recordings Engineer Dermatology 04/28/21 Tavia Wyatt MD [address] [place] [address] [address] [place] [address] Dermatology 07/14/21 Erica Farrell APRN GPS FIELD DATA COLLECTOR [address] [place], [place] [address] Nurse Practitioner Cardiovascular Disease 09/09/21 Rich Barrett MD [address] [facility], [facility] [address]A [place] [address] Physician Ophthalmology 01/21/22 Neil Kent MD 500 [place] [address] Dermatology 02/24/22 Diana Desir, [facility] [address] [place], [place] [address] Assigned MTM Pharmacist 04/07/22 Livan Sharif MD [address] [facility]00 [place], [place] [address] Cardiovascular Disease 05/14/22 Catherine Cm MD [address] [address] Cardiovascular Disease 07/21/22 Valery Veronica PAUcheC [address] [place], [place] [address] Physician Records And Tape Recordings Engineer Dermatology 07/21/22 Brea Quinn APRN GPS FIELD DATA COLLECTOR 500 [place], [place] [address] Nurse Practitioner Dermatology 09/21/22 Brea Quinn APRN GPS FIELD DATA COLLECTOR 6401 [facility] [place] [address] Assigned Surgical Provider 10/09/22 [place] [address] [facility] 300 [place] [address] Assigned Musculoskeletal Provider 10/09/22 Alfonso Renteria MD [address] [facility] 200 [place], [place] [address] Assigned Neuroscience Provider 04/02/23 Radha Lomeli APRN GPS FIELD DATA COLLECTOR 6405 [facility] [address] [place] [address] Assigned Heart and Vascular Provider 05/28/23 Jelena David OD [address] [facility] [place] [address] Ophthalmology 06/15/23 Esha Grimm PA-C [address] [place] [address] Assigned PCP 07/16/23 Valery Veronica PA-C [address] [place], [place] [address] Physician Records And Tape Recordings Engineer Dermatology 09/19/23 Rey Tay MD 9 [place], [place] [address] Gastroenterology 09/20/23 Rocky Zepeda DO 500 [place] [address] Physician Gastroenterology 09/20/23 Philip [place] MD [address] [place] [address] Physician Ophthalmology 09/22/23 Meredith Carrera PA-C [address] [place] [address] Assigned Gastroenterology Provider 11/01/23 Neil Kent MD [address] [address] Dermatology 11/02/23 [place] [address] [place] [address] [address] Neurological Surgery 12/26/23 documented as of this encounter
--- OUTSIDE RECORDS SUMMARY | 2024-01-07 18:05 | XMS_ITS | Encounter Summary ---
Author Organization [place] Address [address] [place] [address] Care Team Providers Care Tube Room Cashier Name Role Phone Thang Diana [place] [facility] Unavailable Rain Galaviz PA-C Unavailable Tavia Wyatt MD Unavailable Unavailable Erica Farrell APRN STEREOTYPE MOLDER Unavailable Rich Barrett MD Unavailable Neil Kent MD Unavailable Diana Desir Stanislav [facility] Unavailable [phone] Livan Sharif MD Unavailable Catherine Cm MD Unavailable + Valery Veronica PA-C Unavailable [phone] Brea Quinn VACUUM CLEANER REPAIR PERSON STEREOTYPE MOLDER Unavailable [phone] Brea Quinn VACUUM CLEANER REPAIR PERSON STEREOTYPE MOLDER Unavailable [phone] Jose Francisco Johnson MD Unavailable Alfonso Renteria MD Unavailable + [phone] Esha Grimm PA-C Primary Care Provider [phone] Radha Lomeli VACUUM CLEANER REPAIR PERSON STEREOTYPE MOLDER Unavailable [phone] Jelena David OD Unavailable Esha GrimmC Unavailable [phone] Valery VeronicaC Unavailable [phone] Rey Tay MD Unavailable Rocky Zepeda DO Unavailable Philip Dumont MD Unavailable [phone] Meredith CarreraC Unavailable [phone] Neil Kent MD Unavailable Juan Pablo Emmanuel MD Unavailable [phone] Encounter Details Date Type Department Care Team (Latest Contact Info) Description 12/26/2023 Travel Social History Tobacco Use Types Packs/Day [...] week 03/10/2023 How often do you attend [facility] services? 1 to 4 times [...] Answer Date Recorded PHQ-2 Score 0 10/25/2023 [facility] - Occupational Stress Questionnaire Answer Date [...] exercise at this level? 30 min 03/10/2023 [place] Depression Scale Answer Date Recorded [place] Depression Score 5 01/14/2021 Last EPDS Self [...] Answer Date Recorded Do you have housing? (Catehrine alves is defined as stable permanent housing and does not include staying ouside in a car, in a tent, in an abandoned building, in an overnight [place] [facility] [place], or couch-surfing.) Yes 07/14/2023 Are you worried [...] Description 01/09/2024 10:15 AM CDT Office Visit [facility] Neurology [facility] [address], [address] [place] [phone] Genny Hyman PAUcheC [facility] Epilepsy [facility] [address] [facility] [address] [place] [address] [place] [address] [facility] [address] [place], [place] [id number] 02/06/2024 10:00 AM CDT Office Visit [facility] [address] [phone] Neil Kent MD [address] [place] [address] 03/06/2024 3:00 PM CDT Office Visit [facility] Heart [facility] [address] [facility] [address] [place] [phone] Radha Lomeli, VACUUM CLEANER REPAIR PERSON STEREOTYPE MOLDER [address] [place], [place] [id number] 03/07/2024 9:00 AM CDT Hospital Encounter [place] [id number] [facility] [address] [place] [phone] Rocky Zepeda DO [address] [place], [place] [address] 03/07/2024 9:00 AM CDT - 03/07/2024 9:30 AM CDT Surgery [facility] [address] [facility] [address] [place] [phone] Rocky Zepeda DO [address] [place], [place] [phone] Esophagoscopy, gastroscopy, duodenoscopy (EGD), combined Scheduled Procedures Name Priority Associated Diagnoses Date/Ti ks ESOPHAGOGASTRODUODENOSCOPY Eosinophilic esophagitis Esophageal dysphagia 03/07/2024 9:00 AM CDT documented as of this encounter Visit Diagnoses Not on filedocumented in this encounter Additional Health Concerns Infection Onset Date Last Indicated Resolved Time Rule Out COVID-19 12/26/2023 12/26/2023 12/26/2023 9:50 AM CDT Assessment Noted Time PHQ-9 Depression Total Score: 4 06/20/20 23 8:40 AM COTTON TIER documented as of this encounter Care Teams Tube Room Cashier Relationship Specialty Start Date End Date Esha Grimm PA-C [address] [place] [address] PCP - General Family Medicine 05/04/23 Diana Desir, [facility] [address] [place] [address] Pharmacist Pharmacist 04/17/21 Rain Galaviz PA-C [address] [place] [address] [address] [facility] [facility] [place] [address] Physician Dry Placer Machine Operator Dermatology 04/28/21 Tavia Wyatt MD [address] [place] [address] [address] [place] [address] Dermatology 07/14/21 Erica Farrell APRN STEREOTYPE MOLDER [address] [place], [place] [address] Nurse Practitioner Cardiovascular Disease 09/09/21 Rich Barrett MD [address] [facility] [address] [place], [place] [address] Physician Ophthalmology 01/21/22 Neil Kent MD [address] [place], [place] [address] Dermatology 02/24/22 [facility] [address] [place], [place] [address] Assigned [place] Pharmacist 04/07/22 Livan Sharif MD [address] [place], [place] [address] Cardiovascular Disease 05/14/22 Catherine Cm MD [address] [facility] [address] [place] [address] Cardiovascular Disease 07/21/22 Valery Veronica, PAUcheC [address] [place] [address] [id number] Physician Dry Placer Machine Operator Dermatology 07/21/22 Brea Quinn APRN STEREOTYPE MOLDER [address] [place] [address] Nurse Practitioner Dermatology 09/21/22 Brea Quinn APRN STEREOTYPE MOLDER [address] [place] [address] Assigned Surgical Provider 10/09/22 [place] [address] [address] [facility] [address] [place] [address] Assigned Musculoskeletal Provider 10/09/22 Alfonso Renteria MD [address] [facility] [address] [place], [place] [address] Assigned Neuroscience Provider 04/02/23 Radha Lomeli APRN STEREOTYPE MOLDER [address] [address] Assigned Heart and Vascular Provider 05/28/23 Jelena David OD [address] [facility] [address] Ophthalmology 06/15/23 Esha Grimm PA-C [address] [place] [phone] Assigned PCP 07/16/23 Valery Veronica PA-C [address] [place] [address] [id number] Physician Dry Placer Machine Operator Dermatology 09/19/23 Rey Tay MD [address] [place], [place] [phone] MD Gastroenterology 09/20/23 Rocky Zepeda DO [address] [place] [phone] Physician Gastroenterology 09/20/23 Philip Dumont MD [address] [place] [address]375 Physician Ophthalmology 09/22/23 Meredith Carrera PA-C [address] [place] [address] [phone] Assigned Gastroenterology Provider 11/01/23 Neil Kent MD [address] [address] Dermatology 11/02/23 [place] [address] [place] [address] Neurological Surgery 12/26/23 documented as of this encounter
--- OUTSIDE RECORDS SUMMARY | 2024-01-07 18:05 | XMS_ITS | Encounter Summary ---
Author Organization [place] Address [address] [place] [address] Care Team Providers Care Drafter Cartographic Name Role Phone Thang Diana [place] [facility] Unavailable [phone] Rain Galaviz PA-C Unavailable Tavia Wyatt MD Unavailable Unavailable Erica Farrell APRN CONSUMER LOAN SPECIALIST Unavailable Rich Barrett MD Unavailable Neil Kent MD Unavailable Diana Desir Stanislav [facility] Unavailable [phone] Livan Sharif MD Unavailable Catherine Cm MD Unavailable + Valery Veronica PA-C Unavailable [phone] Brea Quinn PACKAGING SALES REPRESENTATIVE CONSUMER LOAN SPECIALIST Unavailable Brea Quinn PACKAGING SALES REPRESENTATIVE CONSUMER LOAN SPECIALIST Unavailable Jose Francisco Johnson MD Unavailable Alfonso Renteria MD Unavailable + [phone] Esha Grimm PA-C Primary Care Provider [phone] Radha Lomeli PACKAGING SALES REPRESENTATIVE CONSUMER LOAN SPECIALIST Unavailable [phone] Jelena David OD Unavailable Jesus Grimmyllincoln Medina PA-C Unavailable [phone] Valery Veronica-C Unavailable Rey Tay MD Unavailable ZepedaEvansximena STEVENS Unavailable Philip Dumont MD Unavailable Meredith Carrera PA-C Unavailable Neil Kent MD Unavailable Juan Pablo Emmanuel MD Unavailable Reason for Visit * Reason Comments Sore Flu Symptoms Encounter Details Date Type Department Care Team (Late st Contact Info) Description 12/26/2023 9:32 AM CDT - 12/26/2023 10:06 AM CDT Emergency [facility] Emergency Dept [address] [place] [phone] Augustus Kim MD [facility] [address] [place], [place] [id number] Chest tightness Discharge Disposition: Home or Self Care Social [...] How often do you attend [facility] or catholic services? 1 to 4 times [...] Answer Date Recorded PHQ-2 Score 0 10/25/2023 [facility] [place] [facility] Occupat ional Health - Occupational Stress [...] exercise at this level? 30 min 03/10/2023 [place] Depression Scale Answer Date Recorded [place] Depression Score 5 01/14/2021 Last EPDS [...] Answer Date Recorded Do you have housing? (Jayain g is defined as stable permanent housing and does not include staying ouside in a car, in a tent, in an abandoned building, in an overnight half-way, or couch-surfing.) Yes 07/14/2023 Are you worried [...] Sign Reading Time Taken Comments Blood Pressure 111/57 12/26/2023 8:57 AM CDT Pulse 84 12/26/2023 8:57 AM CDT Temperature 36.4 ??C (97.5 ??F) 12/26/2023 8:57 AM CD T Respiratory Rate 18 12/26/2023 8:57 AM CDT Oxygen Saturation 98% 12/26/2023 8:57 AM CDT Inhaled Oxygen Concentration - - Weight 87 kg (191 lb 12.8 oz) 12/26/2023 8:57 AM CDT Height 167.6 cm (5' 6) 12/26/2023 8:57 AM CDT Body Mass Index 30.96 12/26/2023 8:57 AM CDT documented in this encounter Discharge Instructions * Discharge Instructions* Augustus Kim MD - 12/26/2023 10:03 AM CDT Discharge Instructions Chest Pain You have been seen today for chest pain or discomfort. At this time, your doctor has found no signsthat your chest pain is due to a [...] days. Return to the Emergency Department if: Your chest pain changes, gets worse, starts to happen more often, or comes with less activity. You are short of breath. You get very weak or tired. You pass out or faint. You have any new symptoms, like fever, cough, numb legs, or you cough up blood You have anything else that worries you. Until you follow-up with your regular doctor please do the following: If you have [...] doctor or return to the Emergency Department. Remember [...] 2 times daily 60 mL 1 09/01/2023 Digestive Enzymes (DIGESTIVE ENZYME PO) ketoconazole (NIZORAL) 2 % external shampooIndications:Pso riasis Use every 1-2 days when flared. Leave in few minutes before rinsing. Use twice weekly to prevent flares. 120 mL 11 11/17/2023 levonorgestrel (MIRENA) 52 MG (20 mcg/day) IUD by Intrauterine route once Lidocaine (LIDOCARE) 4 % PatchIndications:Acute left-sided low back pain with left-sided sciatica,Sacroiliac joint pain,Neck pain Place 1 patch onto the skin every 24 hours To prevent lidocaine toxicity, patient should be patch free for 12 hrs daily. 30 patch 1 10/11/2022 LORazepam (ATIVAN) 0.5 MG tabletIndications:Anxi ety Take 1 tablet (0.5 mg) by mouth daily as needed for anxiety 30 tablet 10/27/2023 metoprolol succinate ER (TOPROL XL) 25 MG 24 hr tabletIndications:Palp itations Take 0.5 tablets (12.5 mg) by mouth daily 45 tablet 1 11/22/2023 Multiple Vitamin (MULTIVITAMIN ADULT PO) omeprazole (PRILOSEC) [address] capsuleIndications:Epi gastric pain TAKE 1 CAPSULE BY MOUTH DAILY. 90 capsule 3 09/16/2023 PARoxetine (PAXIL) 40 MG tabletIndications:Anxi ety Take 1 tablet (40 mg) by mouth every morning 90 tablet 1 09/21/2023 Probiotic Product (PROBIOTIC BLEND PO) tacrolimus (PROTOPIC) 0.1 % external ointmentIndications:Ps oriasis Apply thin layer to psoriasis on thinner skin of face/genitals up to twice daily as needed. 60 g 11 10/01/2022 tretinoin (RETIN-A) 0.05 % external creamIndications:Acne, unspecified acne type Apply topically at bedtime 45 g 09/01/2023 triamcinolone (KENALOG) 0.1 % external ointmentIndications:Ps oriasis Apply topically 2 times daily To psoriasis on body or arms/legs until healed then stop 80 g 2 10/01/2022 documented as of this encounter ED Notes * Debbie Bailey RN - 12/26/2023 8:56 AM CDT Pt states she started vaping again about a month ago. Last pt was seen for SOB but nothingcame of it. Since then throat feels swollen and painful, body aches, SOB, chest tightness, and FLORES. * Augustus Kim MD - 12/26/2023 8:53 AM CDT History Chief Complaint: Chest tightness HPI Kim Johnson is a 23 year old female with history of chronic chest pain, with negative workup 12/21/23, who presents with chest tightness. She started vaping approximately 1 month ago and has had intermittent shortness of breath, chest tightness since then. She was seen 12/21/2023 and underwent negative cardiac and PE workup, and had a variety of other testing. Over the weekend, she began to havesome sore throat as well as ongoing mild to moderate additional symptoms described above. She denies fevers, chills, nausea, vomiting, or any other concerns. Independent Historian: None Review of External Notes: Reviewed 12/21/2023 office visit ROS: Review of Systems Allergies: Vancomycin Medications: clindamycin (CLEOCIN T) 1 % external lotion Digestive Enzymes (DIGESTIVE ENZYME PO) ketoconazole (NIZORAL) 2 % external shampoo levonorgestrel (MIRENA) 52 MG (20 mcg/day) IUD Lidocaine (LIDOCARE) 4 % Patch LORazepam (ATIVAN) 0.5 MG tablet metoprolol succinate ER (TOPROL XL) 25 MG 24 hr tablet Multiple Vitamin (MULTIVITAMIN ADULT PO) omeprazole (PRILOSEC) [address] capsule PARoxetine (PAXIL) 40 MG tablet Probiotic Product (PROBIOTIC BLEND PO) tacrolimus (PROTOPIC) 0.1 % external ointment tretinoin (RETIN-A) 0.05 % external cream triamcinolone (KENALOG) 0.1 % external ointment Past History: Past Medical History: Diagnosis Date Anxiety Chronic kidney disease Depressive disorder Gastroesophageal reflux disease Psoriasis Seizure (H) 05/02/2019 SVT (supraventricular tachycardia) (H24) Physical Exam Patient Vitals for the past 24 hrs: Vitals: 12/26/23 0857 BP: 111/57 Pulse: 84 Resp: 18 Temp: 97.5 ??F (36.4 ??C) TempSrc: Temporal SpO2: 98% Weight: 87 kg (191 lb 12.8 oz) Height: 1.676 m (5' 6) Physical Exam Constitutional: Alert, attentive HENT: Nose normal. Posterior pharynx shows 1+ tonsils Normal midline uvula No peritonsillar erythema or swelling No sublingual induration, swelling or tenderness No trismus Normal dentition without gingival swelling or caries Able to extend neck without discomfort Tolerating secretions and able to breathe supine with ease Eyes: EOM are normal. Pupils are equal, round, and reactive to light. CV: regular rate and rhythm; no murmurs, rubs or gallups Chest: Effort normal and breath sounds normal. GI: There is no tenderness. No distension. Normal bowel sounds MSK: Normal range of motion. Neurological: Alert, attentive Skin: Skin is warm and dry. Emergency Department Course Results for orders placed or performed during the hospital encounter of 12/26/23 Symptomatic Influenza A/B, RSV, & SARS-CoV2 PCR (COVID-19) Nasopharyngeal Status: Normal Specimen: Nasopharyngeal; Swab Result Value Ref Range Influenza A PCR Negative Negative Influenza B PCR Negative Negative RSV PCR Negative Negative SARS CoV2 PCR Negative Negative Narrative Testing was performed using the Xpert Xpress CoV2/Flu/RSV Assay on the [employer] Instrument. This test should be ordered [...] management. This test was validated by the [facility]. These laboratories are certified under the ClinicalLaboratory Improvement Amendments of 1988 (CLIA-88) as qualified to perform high complexity laboratory testing. EKG 12 lead Status: None Result Value Ref Range Systolic Blood Pressure mmHg Diastolic Blood Pressure mmHg Ventricular Rate 65 BPM Atrial Rate 65 BPM NH Interval 148 ms QRS Duration 90 ms QT 382 ms QTc 397 ms P [place] 65 degrees R AXIS 69 degrees T [place] 60 degrees Interpretation ECG Sinus rhythm Normal ECG When compared with ECG of 07-SEP-2023 18:14, QT has shortened Unconfirmed report - interpretation of this ECG is computer generated - see medical record for final interpretation Confirmed by - EMERGENCY ROOM, PHYSICIAN ([place]), editorial manager Saleem Gomez ([id number]) on 12/26/2023 10:17:45AM Group A Streptococcus PCR Throat Swab Status: Normal Specimen: Throat; Swab Result Value Ref Range Group A strep by PCR Not Detected Not Detected Narrative The Xpert Xpress Strep A test, performed on the happn?? [employer], is a rapid, qualitative in vitro diagnostic test for the detection of Streptococcus pyogenes (Group A ??-hemolytic Streptococcus, Strep A) in throat swab specimens from patients with signs and symptoms of pharyngitis. The Xpert Xpress Strep A test can be used as an aid in the diagnosis of Group A Streptococcal pharyngitis. The assay is not intended to monitor treatment for Group A Streptococcus infections. The XpertXpress Strep A test utilizes an automated real-time polymerase chain reaction (PCR) to detect Streptococcus pyogenes DNA. Emergency Department Course & Assessments: Disposition: The patient was discharged to home. Impression & Plan Medical Decision Making: This a pleasant 23-year-old female with history of chronic chest pain, palpitations, SVT, who presents for evaluation of the above symptoms. She has had approximately 1 month of chest pain tightness since she began vaping again, and today notes sore throat. She has a normal oropharyngeal exam except for slight erythema and tonsillar enlargement bilaterally. Strep testing is negative. There is no evidence of BELL TIER, Jose De Jesus angina, or other concerning ENT pathology. Viral panel is negative. Based onchest tightness, I recommended chest x-ray and EKG as well as blood work. She declines all of the above aside from EKG, demonstrating decision making capacity that this could represent a missed diagnosis of potential fatal pathology. Plan discharge home to care of primary care, and encourage discontinuation of vaping. Return precautions for worse pain, shortness of breath, or any other concerns. Diagnosis: Visit Diagnosis, Associated Orders, and Comments ICD-10-CM 1. Chest tightness R07.89 Augustus Kim MD 12/26/23 1609 documented in this encounter Plan of Treatment Upcoming Encounters Date Type Department Care Team (Late st Contact Info) Description 01/09/2024 10:15 AM CDT Office Visit [address], [address] [place] [phone] Genny Hyman PA-C [facility] [address] [facility] [address] [place], [place] [address] [place] [address] [facility] [address] [place], [place] [phone] 02/06/2024 10:00 AM CDT Office Visit [facility] [address] [phone] Neil Kent MD 500 [place], [place] [address] 03/06/2024 3:00 PM CDT Office Visit [facility] [address] [facility] [address] [place] [phone] Radha Lomeli, PACKAGING SALES REPRESENTATIVE CONSUMER LOAN SPECIALIST [address] [place], [place] [address] 03/07/2024 9:00 AM CDT Hospital Encounter [facility] [address] [place] [address] 5[address] [place] [phone] Rocky Zepeda DO 500 [place], [place] [address] 03/07/2024 9:00 AM CDT - 03/07/2024 9:30 AM CDT Surgery [facility] [address] [place] [phone] Rocky Zepeda DO 500 [place], [place] [address] Esophagoscopy, gastroscopy, duodenoscopy (EGD), combined Scheduled Procedures Name Priority Associated Diagnoses Date/Ti me ESOPHAGOGASTRODUODENOSCOPY Eosinophilic esophagitis Esophageal dysphagia 03/07/2024 9:00 AM CDT documented as of this encounter Procedures Procedure Name Priority Date/Time Associated Diagnosis Comments EKG 12-LEAD, TRACING ONLY STAT 12/26/2023 9:56 AM CDT INFLUENZA A/B, RSV, & SARS-COV2 PCR STAT 12/26/2023 9:02 AM CDT GROUP A STREPTOCOCCUS PCR THROAT SWAB STAT 12/26/2023 9:02 AM CDT documented in this encounter Results * EKG 12 lead (12/26/2023 9:56 AM CDT) Systolic Blood Pressure mmHg RADIOLOGY RESULTS Diastolic Blood Pressure mmHg RADIOLOGY RESULTS Ventricular Rate 65 BPM RAD IOLOGY RESULTS Atrial Rate 65 BPM RADIOLOG Y RESULTS NH Interval 148 ms RADIOLOG Y RESULTS QRS Duration 90 ms RADIOLO GY RESULTS QT 382 ms RADIOLOGY RESULTS QTc 397 ms RADIOLOGY RESULTS P [place] 65 degrees RADIOLOGY RESULTS R AXIS 69 degrees RADIOLOGY RESULTS T [place] 60 degrees RADIOLOGY RESULTS Interpretation ECG Sinus rhythm Normal ECG When compared with ECG of 07-SEP-2023 18:14, QT has shortened Unconfirmed report - interpretation of this ECG is computer generated - see medical record for final interpretation Confirmed by - EMERGENCY ROOM, PHYSICIAN ([id number]), editorial manager Saleem Gomez ([id number]) on 12/26/2023 10:17:45 AM RADIOLOGY RESULTS 12/26/2023 9:56 AM CDT 12/26/2023 10:17 AM CDT Augustus Kim MD ECG ORDERABLES RADIOLOGY RESULTS * Group A Streptococcus PCR Throat Swab (12/26/2023 9:02 AM CDT) Group A strep by PCR Not Detected Not Detected 12/26/2023 9:37 AM CDT LABORATORY Swab STRUCTURE OF ANTERIOR PORTION OF NECK / Unknown Non-blood Collection / Unknown 12/26/2023 9:02 AM CDT 12/26/2023 9:09 AM CDT Narrative LABORATORY - 12/26/2023 9:37 AM CDT The Xpert Xpress Strep A test, performed on the happn?? [employer], is a rapid, qualitative in vitro [...] reaction (PCR) to detect Streptococcus pyogenes DNA. Augustus Kim MD LAB - MICRO GENER AL ORDERABLES LABORATORY [facility] Acute Care Lab [address] [facility] Lab (1st floor, no room number) [place] [address] * Symptomatic Influenza A/B, RSV, & SARS-CoV2 PCR (COVID-19) Nasopharyngeal (12/26/2023 9:02 AM CDT) [facility] Influenza A PCR Negative Negative 12/26/2023 9:50 AM CDT LABORATORY Influenza B PCR Negative Negative 12/26/2023 9:50 AM CDT LABORATORY RSV PCR Negative Negative 12/26/2023 9:50 AM CDT LABORATORY SARS CoV2 PCR Negative Negative 12/26/2023 9:50 AM CDT LABORATORY Comment:NEGATIVE: SARS-CoV-2 (COVID-19) RNA not detected, presumed negative. Swab NASOPHARYNGEAL STRUCTURE / Unknown Non-blood Collection / Unknown 12/26/2023 9:02 AM CDT 12/26/2023 9:09 AM CDT Narrative LABORATORY - 12/26/2023 9:50 AM CDT Testing was performed using the Xpert Xpress CoV2/Flu/RSV Assay on the [employer] Instrument. This test should be ordered for [...] management. This test was validated by the [facility]. These laboratories are certified under the Clinical Laboratory Improvement Amendments of 1988 (CLIA-88) as qualified to perform high complexity laboratory testing. Augustus Kim MD LAB - MICRO GENER AL ORDERABLES [facility] Acute Care Lab [address] [facility] Lab (1st floor, no room number) [place] [address] documented in this encounter Visit Diagnoses Diagnosis Chest tightness Other chest pain Eosinophilic esophagitis Esophageal dysphagia Dysphagia, pharyngoesophageal phase documented in this encounter Additional Health Concerns Infection Onset Date Last Indicated Resolved Time Rule Out COVID-19 12/26/2023 12/26/2023 12/26/2023 9:50 AM CDT Assessment Noted Time PHQ-9 Depression Total Score: 4 06/20/20 23 8:40 AM PUBLIC WELFARE WORKER documented as of this encounter Care Teams Drafter Cartographic Relationship Specialty Start Date End Date Esha Grimm PA-C [address] [place] [phone] PCP - General Family Medicine 05/04/23 Diana Desir [facility] [address] [place] [address] Pharmacist Pharmacist 04/17/21 Rain Galaviz PA-C [address] [place] [address] [place] [address] Physician Clearing Distribution Clerk Dermatology 04/28/21 Tavia Wyatt MD [address] [place] [address] [address] [facility] [place] [address] Dermatology 07/14/21 Erica Farrell APRN CONSUMER LOAN SPECIALIST [address] [place] [address] Nurse Practitioner Cardiovascular Disease 09/09/21 Rich Barrett MD [address] [address] Physician Ophthalmology 01/21/22 Neil Kent MD [address] [place] [address] Dermatology 02/24/22 Diana Desir, [facility] [address] [place], [place] [address] Assigned [facility] Pharmacist 04/07/22 Livan Sharif MD [address] [place] [address] Cardiovascular Disease 05/14/22 Catherine Cm MD [address] [place] [address] Cardiovascular Disease 07/21/22 Valery Veronica, PAUcheC [address] [place] [address] Physician Clearing Distribution Clerk Dermatology 07/21/22 Brea Quinn APRN CONSUMER LOAN SPECIALIST 500 [place] [address] Nurse Practitioner Dermatology 09/21/22 Brea Quinn APRN CONSUMER LOAN SPECIALIST [address] [place] [address] Assigned Surgical Provider 10/09/22 [place] [address] [address] [facility] [address] [place], [place] [address] Assigned Musculoskeletal Provider 10/09/22 Alfonso Renteria MD [address] [facility] 200 [place], [place] [address] Assigned Neuroscience Provider 04/02/23 Radha Lomeli APRN CONSUMER LOAN SPECIALIST [address] [facility] [address] [place] [address] Assigned Heart and Vascular Provider 05/28/23 Jelena David OD [address] [facility] [place] [address] Ophthalmology 06/15/23 Esha Grimm PA-C [address] [place] [phone] Assigned PCP 07/16/23 Valery Veronica PA-C [address] [place] [address] Physician Clearing Distribution Clerk Dermatology 09/19/23 Rey Tay MD [address] [place] [address] Gastroenterology 09/20/23 Rocky Zepeda DO [address] [place] [address] Physician Gastroenterology 09/20/23 Philip Dumont MD [address] [place] [address] Physician Ophthalmology 09/22/23 Meredith Carrera PA-C [address] [place] [address] Assigned Gastroenterology Provider 11/01/23 Neil Kent MD [address] [place] [address] Dermatology 11/02/23 [place] [address] [place] [address] Neurological Surgery 12/26/23 documented as of this encounter
--- OUTSIDE RECORDS SUMMARY | 2024-01-07 18:05 | XMS_ITS | Encounter Summary ---
Author Organization [facility] Address [address] [place] [address] Care Team Providers Care Assurance Senior Name Role Phone Thang Diana [place] [facility] Unavailable [phone] Rain Galaviz PA-C Unavailable Tavia Wyatt MD Unavailable Unavailable Erica Farrell APRN REFUSE AND RECYCLING WORKER Unavailable Rich Barrett MD Unavailable Neil Kent MD Unavailable Diana Desir Stanislav [facility] Unavailable [phone] Livan Sharif MD Unavailable Catherine Cm MD Unavailable + Valery Veronica PA-C Unavailable [phone] Brea Quinn RECEIVING ROOM CLERK REFUSE AND RECYCLING WORKER Unavailable Brea Quinn RECEIVING ROOM CLERK REFUSE AND RECYCLING WORKER Unavailable Jose Francisco Johnson MD Unavailable Alfonso Renteria MD Unavailable + [phone] Esha Grimm PA-C Primary Care Provider Radha Lomeli RECEIVING ROOM CLERK REFUSE AND RECYCLING WORKER Unavailable [phone] Jelena David OD Unavailable Wicho Grimmlincoln Medina PA-C Unavailable [phone] Valery VeronicaC Unavailable Rey Tay MD Unavailable ZepedaRocky Unavailable Philip Dumont MD Unavailable [phone] Meredith Carrera PA-C Unavailable [phone] Neil Kent MD Unavailable Juan Pablo Emmanuel MD Unavailable [phone] Reason for Visit * Reason Onset Date Comments Pre Visit Planning - 2 Attempts 01/02/2024 Pre charting Encounter Details Date Type Department Care Team (Late st Contact Info) Description 01/02/2024 PRE VISIT [facility] [address] [address] [place] [address] [address] Pre Visit Planning - 2 Attempts (Pre charting) Social History Tobacco Use Types Packs/Day Years [...] Answer Date Recorded PHQ-2 Score 0 10/25/2023 [facility] - Occupational Stress Questionnaire Answer [...] at this level? 30 min 03/10/2023 [place] Depression Scale Answer Date Recorded [place] Depression Score 5 01/14/2021 Last EPDS Self [...] in an abandoned building, in an overnight intermediate, or couch-surfing.) Yes 07/14/2023 Are you worried [...] Description 01/09/2024 10:15 AM CDT Office Visit [facility] Neurology [address], [address] [place] [address] Genny Hyman PAUcheC [facility] Epilepsy Care [address] [facility] [address] [place], [place] [id number] [place] [address] [address] [place], [place] [address] 02/06/2024 10:00 AM CDT Office Visit [facility] [address] [address] Neil Kent MD [address] [place] [address] 03/06/2024 3:00 PM CDT Office Visit [facility] Heart [facility] [address] [facility] [address] [place] [phone] Radha Lomeli, RECEIVING ROOM CLERK REFUSE AND RECYCLING WORKER [address] [place] [address] 03/07/2024 9:00 AM CDT Hospital Encounter [address] [phone] Rocky Zepeda DO [address] [place], [place] [address] 03/07/2024 9:00 AM CDT - 03/07/2024 9:30 AM CDT Surgery [address] [phone] Rocky Zepeda DO [address] [place], [place] [address] Esophagoscopy, gastroscopy, duodenoscopy (EGD), combined Scheduled Procedures Name Priority Associated Diagnoses Date/Ti al ESOPHAGOGASTRODUODENOSCOPY Eosinophilic esophagitis Esophageal dysphagia 03/07/2024 9:00 AM CDT documented as of this encounter Visit Diagnoses Not on filedocumented in this encounter Additional Health Concerns Assessment Noted Time PHQ-9 Depression Total Score: 4 06/20/20 23 8:40 AM [employer] OFF[employer]ER documented as of this encounter Care Teams Assurance Senior Relationship Specialty Start Date End Date Esha Grimm PA-C [address] [place] [address] PCP - General Family Medicine 05/04/23 Diana Desir, [facility] [address] [place] [address] Pharmacist Pharmacist 04/17/21 Rain Galaviz PA-C [address] [place] [address] [address] [place] [address] Physician Supervisor [employer] Dermatology 04/28/21 Tavia Wyatt MD [address] [place] [address] [place] [address] Dermatology 07/14/21 Erica Farrell APRN REFUSE AND RECYCLING WORKER [address] [place] [address] Nurse Practitioner Cardiovascular Disease 09/09/21 Rich Barrett MD [address] [address] Physician Ophthalmology 01/21/22 Neil Kent MD [address] [place], [place] [address] Dermatology 02/24/22 Diana Desir, [facility] [address] [place] [address] Assigned MTM Pharmacist 04/07/22 Livan Sharif MD [address] [place] [address] Cardiovascular Disease 05/14/22 Catherine Cm MD [address] [place] [address] Cardiovascular Disease 07/21/22 JeremíasValery damon PA-C [address] [place] [address] Physician Supervisor [employer] Dermatology 07/21/22 Brea Quinn APRN REFUSE AND RECYCLING WORKER [address] [place] [address] Nurse Practitioner Dermatology 09/21/22 Brea Quinn APRN REFUSE AND RECYCLING WORKER [address] [place] [address] Assigned Surgical Provider 10/09/22 [place] [address] [place] [address] Assigned Musculoskeletal Provider 10/09/22 Alfonso Renteria MD [address] [facility] [address] [place], [place] [address] Assigned Neuroscience Provider 04/02/23 Radha Lomeli APRN REFUSE AND RECYCLING WORKER [address] [facility] [address] [place], [place] [phone] Assigned Heart and Vascular Provider 05/28/23 Jelena David OD [address] [facility] [place] [address] Ophthalmology 06/15/23 Esha Grimm PA-C [address] [place] [address] Assigned PCP 07/16/23 Valery Veronica PA-C [address] [place] [address] Physician Supervisor [employer] Dermatology 09/19/23 Rey Tay MD [address] [place] [address] MD Gastroenterology 09/20/23 Rocky Zepeda DO [address] [place] [address] Physician Gastroenterology 09/20/23 Philip Dumont MD [address] [place] [address] Physician Ophthalmology 09/22/23 Meredith Carrera PA-C [address] [place] [address] Assigned Gastroenterology Provider 11/01/23 Neil Kent MD [address] [address] Dermatology 11/02/23 [place] [address] [place], [place] [address] Neurological Surgery 12/26/23 documented as of this encounter
--- OUTSIDE RECORDS SUMMARY | 2024-01-07 18:05 | XMS_ITS | Encounter Summary ---
Author Organization [facility] Address [address] [place] [address] Care Team Providers Care Casing Soaker Name Role Phone Thang Diana Mayers [facility] Unavailable [phone] Rain Galaviz PA-C Unavailable Tavia Wyatt MD Unavailable Unavailable Erica Farrell APRN TUBE SKIVER Unavailable Rich Barrett MD Unavailable Neil Kent MD Unavailable Diana Desir Stanislav [facility] Unavailable [phone] Livan Sharif MD Unavailable Catherine Cm MD Unavailable + Valery Veronica PA-C Unavailable [phone] Brea Quinn SILVER BRAZER TUBE SKIVER Unavailable Brea Quinn SILVER BRAZER TUBE SKIVER Unavailable [phone] Jose Francisco Johnson MD Unavailable Alfonso Renteria MD Unavailable + [phone] Esha Grimm PA-C Primary Care Provider [phone] Radha Lomeli SILVER BRAZER TUBE SKIVER Unavailable [phone] Jelena David OD Unavailable Esha Grimm Adam PA-C Unavailable [phone] JeremíasValeryC Unavailable [phone] Rey Tay MD Unavailable Rocky Zepeda Unavailable Philip Dumont MD Unavailable [phone] Meredith CarreraC Unavailable [phone] Neil Kent MD Unavailable Juan Pablo Emmanuel MD Unavailable [phone] Reason for Referral * Rehab Therapy Physical Therapy (Priority: 1-2 Weeks) - Pending Review Specialty Diagnoses / Procedures Referred By Qian mayers Referred To Contact Diagnoses Chiari malformation type I (H) Neck pain Ebony Cid APRN TUBE SKIVER [address] [place] [address] Referral ID Status Reason Start Date Expiration Date V isits Requested Visits Authorized [id number] Pending Review 01/05/2024 01/04/2025 1 1 Question Answer Course of Action: Evaluation and Treatment Specialty Services: Per Associated Diagnosis Scheduling Instructions: [employer] will call you to coordinate your care as prescribed by your provider. If you don't hear from a textiles sales representative within 2 business days, please call . Additional Information: neck pain, arm numbness. eval treat strengthening range of motion Comments Please be aware that coverage of these services is subject to the terms and limitations of your health insurance plan. Call member services at your health plan with any benefit or coverage questions. [employer] will call you to coordinate your care as prescribed by your provider. If you don't hear from a textiles sales representative within 2 business days, please call . * Diagnostic Imaging MRI (Routine) - Closed Specialty Diagnoses / Procedures Referred By Qian mayers Referred To Contact Radiology. Diagnoses Abnormal finding on MRI of brain Chiari malformation type I (H) Procedures MR Brain w/o & w Contrast Ebony Cid APRN TUBE SKIVER [address] [place] [address] Referral ID Status Reason Start Date Expiration Date Visits Re quested Visits Authorized [id number] Closed 01/05/2024 01/04/2025 1 1 * Diagnostic Imaging MRI (Routine) - Closed Specialty Diagnoses / Procedures Referred By Qian mayers Referred To Contact Radiology. Diagnoses Chiari malformation type I (H) Numbness and tingling of upper extremity Procedures MR Cervical Spine w/o & w Contrast Ebony Cid APRN TUBE SKIVER [address] [place] [address] Referral ID Status Reason Start Date Expiration Date Visits Re quested Visits Authorized [id number] Closed 01/05/2024 01/04/2025 1 1 Reason for Visit * Reason Comments Consult Neck Pain * Consultation (Routine: Next available opening) - Closed Specialty Diagnoses / Procedures Referred By Qian mayers Referred To Contact Diagnoses Tingling of both upper extremities Anthony Doe, [address] [address] [place] [address] Referral ID Status Reason Start Date Expiration Date Visits Re quested Visits Authorized [id number] Closed 11/16/2023 11/15/2024 1 1 Encounter Details Date Type Department Care Team (Late st Contact Info) Description 01/05/2024 1:40 PM CDT Office Visit [facility] [address] [place] [phone] Ebony Cid APRN TUBE SKIVER [address] [place], [place] [id number] Abnormal finding on MRI of brain (Primary Dx); Chiari malformation type I (H); Numbness and tingling of upper extremity; Neck pain Social History Tobacco Use Types Packs/Day [...] do you attend chur or yazdanism services? 1 to 4 times [...] Answer Date Recorded PHQ-2 Score 0 10/25/2023 [facility] of Occupat ional Health - Occupational Stress [...] at this level? 30 min 03/10/2023 [place] Depression Scale Answer Date Recorded [place] Depression Score 5 01/14/2021 Last EPDS Self [...] Pulse 80 01/05/2024 2:25 PM CDT Temperature - - Respiratory Rate - - Oxygen Saturation - - Inhaled Oxygen Concentration - - Weight 83.9 kg (185 lb) 01/05/2024 2:25 PM CDT Height 167.6 cm (5' 6) 01/05/2024 2:25 PM CDT Body Mass Index 29.86 01/05/2024 2:25 PM CDT documented in this encounter Patient Instructions * Patient Instructions* Ebony Cid APRN TUBE SKIVER - 01/05/2024 1:40 PM CDT Imaging (brain and cspine MRI) has been ordered today. Radiology will call you to schedule. Please call below if you do not hear from them in the next couple of days. [facility] Scheduling: Please call [phone] to schedule your image(s) (select option #1). There are 3 different locations: [facility] [address] [place] [address] Imaging - [place] [address] [facility], [address] [facility] [address] [place] [id number] [place] [phone] ~You have been referred for Physical Therapy to [facility]. They will call youto schedule an appointment. Scheduling phone number is [phone] [facility] or [place] location. If you have not heard from the scheduling office within 2 business days, please call [phone] for ALL other locations. Discussed the importance of core strengthening, ROM, stretching exercises and how each of these entities is important in decreasing pain and improving correction spine health. The purpose of physical therapy is to teach you an individualized home exercise program. These exercises need to be performed every day in order to decrease pain and prevent future occurrences of pain. You have been previously referred to see the Neurology Department. Please call [phone]. to schedule your appointment ~Please call our [facility] Nurse Navigation line with any questions or concerns about your treatment plan, if symptoms worsen and you would like to be seen urgently, or if you have any new or worsening numbness, weakness, or problems controlling bladder and bowel function. ~You are also welcome to contact Ebony Cid via [employer], but please be aware that responses to [employer] message may take 2-3 days due to the high volume of patients seen in clinic. documented in this encounter Progress Notes * Ebony Cid APRN CNP - 01/05/2024 1:40 PM CDT ASSESSMENT: Kim Johnson is a 23 year old female presents for consultation at the request of PCP Esha Grimm, who presents today for new patient evaluation of : -tingling of both upper extremities Patient has brisk lower ext reflexes, decreased upper ext reflexes. Otherwise full strength, sensation intact, balance normal. Her numbness, weakness episodes of the upper extremities, and spreading numbness from the neck into the torso is a concern. We reviewed her previous brain/cspine MRI results. She has a chiari 1. She has a small abnormality in the R parietal lobe. She has a C4 lesion into R TP and R transverse foramen thought to be a bone island on a noncontrast MRI. She had no abnormal cord signal or high grade stenoses. Given progressive symptoms, recommended new cspine/brain MRI with and without contrast, rule out any new concerns. If negative, would recommend neurology workup. She was previously referred and I gave her the # to book with them. She will otherwise be seeing neurosurgery in a few days as well. We will call her with MRI results and plan. In the meantime I entered a PT referral. 08/25/2022 3:00 PM OSWESTRY DISABILITY INDEX Count 10 Sum 16 Oswestry Score (%) 32 % Diagnoses and all orders for this visit: Abnormal finding on MRI of brain - MR Brain w/o & w Contrast; Future Chiari malformation type I (H) - MR Cervical Spine w/o & w Contrast; Future - MR Brain w/o & w Contrast; Future - Physical Therapy Instrument Adjuster Referral; Future Numbness and tingling of upper extremity - MR Cervical Spine w/o & w Contrast; Future Neck pain - Physical Therapy Instrument Adjuster Referral; Future PLAN: Reviewed spine anatomy and disease process. Discussed diagnosis and treatment options with the patient today. A shared decision making model was used. The patient's values and choices were respected.The following represents what was discussed and decided upon by the provider and the patient. -DIAGNOSTIC TESTS: Images were personally reviewed and interpreted and explained to patient today using spine model. --MRI brain with without contrast today -MRI cervical spine with without contrast ordered today -PHYSICAL THERAPY: -PT referral placed today Discussed the importance of core strengthening, ROM, stretching exercises with the patient and how each of these entities is important in decreasing pain. Explained to the patient that the purpose ofphysical therapy is to teach the patient a home exercise program. These exercises need to be performed every day in order to decrease pain and prevent future occurrences of pain. -MEDICATIONS: -did not discuss medications today -INTERVENTIONS: -Did not discuss injections today. Patient would be a good candidate in the future for either epidural steroid injections or medial branch blocks if indicated based on symptoms and supported by imaging results. -PATIENT EDUCATION: Total time of 40 minutes, on the day of service, spent with the patient, reviewing the chart, placing orders, and documenting. -Today we also discussed the issues related to the pros and cons of the current treatment plan. -FOLLOW-UP: we will call with results of imaging Advised patient to call the Spine Center if symptoms worsen or if they develop red flag symptoms such as numbness, weakness, severe pain uncontrolled by current pain med regimen, or any new or worsening problems controlling bladder and bowel function. SUBJECTIVE: Kim Johnson is a 23 year old ambidextrous female smoker with hx epilepsy, SVT, paroxysmal supraventricular tachycardia, asthma, kidney stones, chronic kidney disease, psoriasis, depression, anxiety, GERD, eosinophilic esophagitis who presents today for new patient evaluation of numbness and tingling both upper extremities. Prior epilepsy was on medication, Over the years, she has had episodes of left arm numbness all the way down into the hand and left anterior chest wall. Now she has it in her right arm, bilateral chest and sometimes goes all the way down her torso. She has episodes of left arm weakness, happening more often. Sometimes when she has to have a BM, she notices a lightweight tingly/pinlike sensation of the torso. She has neck pain on a daily basis, with headaches into the back of her head. These do not seem worse with coughing/bearing down. Pain 4/10, 9/10 at worst, 1/10 at best. 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 She has had back pain since then, and shooting pain into the left leg which is more rare. She did PT around that time She was told that she had a Chiari a few years ago. No additional investigation. She does have a neurosurgery appt in a few days. She has a family history (maternal aunt has MS) -Treatment to Date: -Medications: Current Outpatient Medications Medication Sig Dispense Refill clindamycin (CLEOCIN T) 1 % external lotion Apply topically 2 times daily 60 mL 1 Digestive Enzymes (DIGESTIVE ENZYME PO) ketoconazole (NIZORAL) 2 % external shampoo Use [...] (12.5 mg) by mouth daily 45tablet 1 Multiple Vitamin (MULTIVITAMIN ADULT PO) omeprazole (PRILOSEC) [address] capsule TAKE 1 CAPSULE BY MOUTH DAILY. 90 capsule 3 PARoxetine (PAXIL) 40 MG tablet Take 1 tablet (40 mg) by mouth every morning 90 tablet 1 Probiotic Product (PROBIOTIC BLEND PO) tacrolimus (PROTOPIC) 0.1 % external ointment Apply [...] No current facility-administered medications for this visit. 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) Paroxysmal supraventricular tachycardia (H24) SVT (supraventricular tachycardia) (H24) Past Surgical History: Procedure Laterality Date EP ABLATION SVT N/A 08/28/2021 Procedure: EP Ablation SVT; Surgeon: Galo Burrell MD; Location: HEART CARDIAC UNDERGROUND SUPERVISOR ESOPHAGOSCOPY, GASTROSCOPY, DUODENOSCOPY (EGD), COMBINED N/A 06/26/2021 Procedure: ESOPHAGOGASTRODUODENOSCOPY (EGD) (fv); Surgeon: Rey Sheppard MD; Location: GI ESOPHAGOSCOPY, GASTROSCOPY, DUODENOSCOPY (EGD), COMBINED N/A 09/12/2023 Procedure: Esophagoscopy, gastroscopy, duodenoscopy (EGD), combined; Surgeon: Rey Tay MD; Location: GI GENITOURINARY SURGERY kidney Family History Problem Relation Age of Onset Heart Disease Maternal Grandfather Brain Tumor Sister Macular Degeneration No family hx of Glaucoma No family hx of Reviewed past medical, surgical, and family history with patient found on new patient intake packetlocated in EMR Media tab. SOCIAL HX: smoker, alcohol use, no heavy drinking, no rec drug use Oswestry (JOSEMANUEL) Questionnaire: 08/25/2022 3:00 PM OSWESTRY DISABILITY INDEX Count 10 Sum 16 Oswestry Score (%) 32 % Neck Disability Index: 08/25/2022 3:00 PM Neck Disability Index (?? Yamil Lemus. and Yao Rogers 1991. All rights reserved.; used with permission) SECTION 1 - PAIN INTENSITY 2 SECTION 2 - PERSONAL CARE 1 SECTION 3 - LIFTING 1 SECTION 4 - READING 2 SECTION 5 - HEADACHES 3 SECTION 6 - CONCENTRATION 0 SECTION 7 - WORK 3 SECTION 8 - DRIVING 1 SECTION 9 - SLEEPING 2 SECTION 10 - RECREATION 1 Count 10 Sum 16 Raw Score: /50 16 Neck Disability Index Score: (%) 32 % PHQ-2 Score: 10/25/2023 11:23 AM 09/22/2021 2:33 PM PHQ-2 (??1998 [employer]) Q1: Little interest or pleasure in doing things 0 1 Q2: Feeling down, depressed or hopeless 0 1 PHQ-2 Score 0 2 Q1: Little interest or pleasure in doing things Several days Q2: Feeling down, depressed or hopeless Several days PHQ-2 Score 2 ROS: positive for weight gain, headache, difficulty swallowing, changes in vision, palpitations, shortness of breath, enlarged lymph nodes, abdominal pain, reflux, joint pain, muscle pain, muscle fatigue, itching, dizziness, anxiety, excessive tiredness. Specifically negative for bowel/bladder dysfunction, balance changes, foot drop, fevers, chills, appetite changes, nausea/vomiting, unexplained weight loss. Otherwise 13 systems reviewed are negative. Please see the patient's intake questionnaire from today for details. OBJECTIVE: BP 120/62 Pulse 80 Ht 5' 6 (1.676 m) Wt 185 lb (83.9 kg) BMI 29.86 kg/m?? PHYSICAL EXAMINATION: --CONSTITUTIONAL: Vital signs as above. No acute distress. The patient is well nourished and well groomed. --PSYCHIATRIC: The patient is awake, alert, oriented to person, place, and time, and answering questions appropriately with clear speech. Appropriate mood and affect --HEENT: Sclera are non-injected. Extraocular muscles are intact. Moist oral mucosa. --SKIN: Skin over the face, bilateral upper extremities, and posterior torso is clean, dry, intact without rashes. --LYMPH NODES: No palpable or tender anterior/posterior cervical, submandibular, or supraclavicularlymph nodes. --RESPIRATORY: Normal rhythm and effort. No abnormal accessory muscle breathing patterns noted. --NEUROLOGIC: CN III-XII are grossly intact. --GROSS MOTOR: Easily arises from a seated position. Toe walking, heel walking, and tandem gait arenormal. --UPPER EXTREMITY MOTOR TESTING: Shoulder abduction: right 5/5, left 5/5 Triceps: right 5/5 left 5/5 Biceps:right 5/5 left 5/5, Hand Strapping Machine Tender: right 5/5 left 5/5, Intrinsics: right 5/5 left 5/5, Extensors: right 5/5 left 5/5, --LOWER EXTREMITY MOTOR TESTING Hip flexion: right 5/5 left 5/5, Quads:right 5/5 left 5/5, Hamstrings: right 5/5 left 5/5, Dorsiflexion: right 5/5 left 5/5, Plantarflexion: right 5/5 left 5/5, EHL: right 5/5 left 5/5, REFLEXES: 0/4 symmetric triceps, biceps, brachioradialis bilaterally. brisk/4 symmetric patellar, achilles reflex bilaterally. Negative Clonus, Babinski, and Mccormack's bilaterally. SENSATION: of the upper and lower extremities is intact to light touch. --VASCULAR: Warm upper and lower limbs bilaterally. No swelling or color change noted. --CERVICAL SPINE: Inspection reveals no evidence of deformity or swelling. Range of motion is not limited in cervical flexion, extension, lateral rotation, head tilt. No point tenderness to palpationof cervical spine. No tenderness to palpation of traps, scaps, or paraspinal musculature. LUMBAR SPINE: no deformity or swelling. Normal range of motion. No point tenderness or paraspinal musculature tenderness. No SI joint tenderness. --SHOULDERS: Full range of motion bilaterally: abduction, flexion, cross chest movement internal/external rotation. No tenderness to palpation or swelling noted of AC joint. Negative straight leg raises RESULTS: Prior medical records from [facility] and [facility] Everywhere were reviewed today. IMAGING: Spine imaging was personally reviewed and interpreted today. The images were shown to the patient and the findings were explained using a spine model. MR BRAIN W/O CONTRAST 06/17/2023 8:25 AM Provided History: Seizure disorder (H). ICD-10: Seizure disorder (H) Comparison: CT head 04/26/2022. Technique: Multiplanar T1-weighted, axial fat-saturated T2 FLAIR, and axial susceptibility weighted images of the brain were obtained without the administration of intravenous contrast. Additional precontrast thin section coronal oblique T2-weighted and T2 FLAIR images were obtained through the temporal lobes. Findings: Single small FLAIR hyperintense focus in the subcortical white matter of the right parietal lobe (series 8 image 14), which is nonspecific, but within normal limits for age and unlikely to be pathologic. Tonsillar ectopia extending 6.6 mm below the foramen magnum, suggestive of Chiari I malformation (series 3 image 83). Unchanged. There is no mass effect, midline shift, or intracranial hemorrhage. The ventricles are proportionate to the cerebral sulci. No abnormal signal or atrophy in the mesial temporal lobes bilaterally.. No abnormality of the skull marrow signal. The major vascular intracranial flow-voids are present. The orbits, visualized portions of paranasal sinuses, and mastoid air cells are relatively clear. The pituitary gland appears normal. Impression: 1. No definitive structural abnormality to account for seizure disorder. 2. 6.6 mm tonsillar ectopia, suggestive of Chiari I malformation I have personally reviewed the examination and initial interpretation and I agree with the findings. MACEY HOPKINS MD EXAM: MR CERVICAL SPINE W/O CONTRAST LOCATION: [facility] DATE/TIME: 11/12/2021 5:50 PM INDICATION: Left upper extremity tingling, numbness, and weakness. Neck pain [M54.2 (ICD-10-CM)]; Left arm weakness [R29.898 (ICD-10-CM) COMPARISON: 08/03/2021, 08/27/2021 TECHNIQUE: MRI Cervical Spine without IV contrast. FINDINGS: Normal alignment. Vertebral body heights are preserved. Redemonstrated densely sclerotic lesion in the C4 vertebral body without STIR hyperintensity, most suggestive of a bone island. No abnormal cord signal. No extraspinal abnormality. Craniovertebral junction and C1-C2: Normal. C2-C3: Normal disc height. No herniation. Normal facets. No spinal canal or neural foraminal stenosis. C3-C4: Normal disc height. No herniation. Normal facets. No spinal canal or neural foraminal stenosis. C4-C5: Shallow disc bulge. Asymmetric right-sided uncovertebral hypertrophy. Mild narrowing of the right neural foramen. No spinal canal stenosis or narrowing of the left neural foramen. C5-C6: Shallow disc bulge. No spinal canal or neural foraminal narrowing. C6-C7: Shallow disc bulge. No spinal canal or neural foraminal narrowing. C7-T1: Normal disc height. No herniation. Normal facets. No spinal canal or neural foraminal stenosis. IMPRESSION: 1. Minor degenerative changes, without high-grade spinal canal or neural foraminal narrowing. CT CERVICAL SPINE WITHOUT CONTRAST 08/03/2021 2:37 PM HISTORY: Pain of left upper extremity TECHNIQUE: Axial images of the cervical spine were obtained without intravenous contrast. Multiplanar reformations were performed. Radiation dose for this scan was reduced using automated exposure control, adjustment of the mA and/or kV according to patient size, or iterative reconstruction technique. COMPARISON: Cervical spine radiographs dated 05/17/2019. Outside MRI brain dated 06/08/2021. FINDINGS: No fracture. Normal vertebral body heights. Straightening of the normal cervical lordosis, which may be positional. Slight levoconvex curvature centered near the cervicothoracic junction. Alignment is otherwise normal. There is a uniformly sclerotic lesion with spiculated margins involving the right aspect of the C4 vertebral body and probably partially extending to involve the right transverse process/the lamas of the right transverse foramen. This measures approximately 14 mm x 7 mm x 11 mm. This is nonspecific, but may represent a benign lesion such as a prominent bone island. It is somewhat larger in size than typically seen for a bone island in the spine. Other possibilities such as osteoblastic metastatic disease cannot be entirely excluded by imaging features alone, but are thought to be less likely in an adult patient without history of malignancy. The intervertebral discs are relatively maintained in height. The facet joints appear within normal limits. Shallow multilevel disc bulges are noted. There is no significant spinal canal or neural foraminal stenosis. A few calcified tonsilloliths are seen. The visualized paraspinous soft tissues otherwise appear unremarkable. IMPRESSION: 1. Nonspecific sclerotic lesion in the right aspect of the C4 vertebral body, as described. This probably represents a benign lesion such as a bone island in a young adult patient without a history of malignancy. Other possibilities such as osteoblastic metastatic disease cannot be entirely excluded. As clinically warranted, MRI of the cervical spine without and with contrast may be helpful for further evaluation. 2. No fracture or other acute osseous abnormality. 3. No significant spinal canal or neural foraminal stenosis. CHIDI SWEET MD SYSTEM ID: [id number] This note was dictated using voice recognition software. Any grammatical or context distortions areunintentional and inherent to the software. Ebony Cid OBIEE REPORT DEVELOPER-C [facility] O. [phone] documented in this encounter Plan of Treatment Upcoming Encounters Date Type Department Care Team (Late st Contact Info) Description 01/09/2024 10:15 AM CDT Office Visit [facility] [address], [address] [place] [phone] Genny Hyman PA-C [facility] Epilepsy [facility] [address] [place], [place] [id number] [place] [address] [facility] [address] [place], [place] [id number] 02/06/2024 10:00 AM CDT Office Visit [facility] [address] [phone] Neil Kent MD [address] [place], [place] [address] 03/06/2024 3:00 PM CDT Office Visit [facility] [facility] [address] [facility] [address] [place] [phone] Radha Lomeli APRN TUBE SKIVER [address] [facility] [address] [place], [place] [address] 03/07/2024 9:00 AM CDT Hospital Encounter [facility] [address] [facility] [address] 5th [place] [phone] Rocky Zepeda DO 500 [place], [place] [address] 03/07/2024 9:00 AM CDT - 03/07/2024 9:30 AM CDT Surgery [facility] [address] [facility] 5th [place] [address] Rocky Zepeda DO 500 [place] [address] Esophagoscopy, gastroscopy, duodenoscopy (EGD), combined Scheduled Procedures Name Priority Associated Diagnoses Date/Ti ar ESOPHAGOGASTRODUODENOSCOPY Eosinophilic esophagitis Esophageal dysphagia 03/07/2024 9:00 AM CDT Scheduled Referrals Name Type Priority Associated Diagnoses Orde r Schedule Physical Therapy Instrument Adjuster Referral Referral Priority: 1-2 Weeks Chiari malformation type I (H) Neck pain Expected: 01/05/2024 (Approximate), Expires: 01/04/2025 documented as of this encounter Results * MR Brain w/o & w Contrast [...] MR BRAIN W/O and W CONTRAST LOCATION: [facility] DATE: 01/06/2024 INDICATION: numbness tingling both arms [...] MR BRAIN W/O and W CONTRAST LOCATION: [facility] DATE: 01/06/2024 INDICATION: numbness tingling both arms and chest, torso. Recheck I5hevgak and hx Chiari and right parietal abnormality, [...] at the right lateral aspect of the [id number] body. Ebony Cid SILVER BRAZER TUBE SKIVER IMG MRI ORDERABLES * MR Cervical Spine w/o & w [...] MR BRAIN W/O and W CONTRAST LOCATION: [facility] DATE: 01/06/2024 INDICATION: numbness tingling both arms [...] MR BRAIN W/O and W CONTRAST LOCATION: [facility] DATE: 01/06/2024 INDICATION: numbness tingling both arms and chest, torso. Recheck [id number] and hx Chiari and right parietal abnormality, [...] at the right lateral aspect of the F0oxhruwtrv body. Ebony Cid APRN TUBE SKIVER IMG MRI ORDERABLES documented in this encounter Visit Diagnoses Diagnosis Abnormal finding on MRI of brain- Primary Nonspecific (abnormal) findings on radiological and other examination of skull and head Chiari malformation type I (H) Compression of brain Numbness and tingling of upper extremity Neck pain Cervicalgia Chiari malformation type I (H) Compression of brain Numbness and tingling of upper extremity Abnormal finding on MRI of brain Nonspecific (abnormal) findings on radiological and other examination of skull and head Eosinophilic esophagitis Esophageal dysphagia Dysphagia, pharyngoesophageal phase documented in this encounter Additional Health Concerns Assessment Noted Time PHQ-9 Depression Total Score: 4 06/20/20 23 8:40 AM CLOTH EDGE SINGER documented as of this encounter Care Teams Casing Soaker Relationship Specialty Start Date End Date Esha Grimm PA-C [address] [place] [phone] PCP - General Family Medicine 05/04/23 Diana Desir [facility] [address]33 [place] [address] Pharmacist Pharmacist 04/17/21 Rain Galaviz PA-C [address] [place] [address] [address] ENMA GARCIA [address] Physician Canteen Manager Dermatology 04/28/21 Tavia Wyatt MD [address] [place] [address] ENMA KNUTSON [address] Dermatology 07/14/21 Erica Farrell APRN TUBE SKIVER [address] [place] [address] Nurse Practitioner Cardiovascular Disease 09/09/21 Rich Barrett MD [address] 7823[address] Physician Ophthalmology 01/21/22 Neil Kent MD 500 [place], [place] [address] Dermatology 02/24/22 Diana Desir, [facility] 30[address] [place] [address] Assigned MTM Pharmacist 04/07/22 Livan Sharif MD [address] [place] [address] Cardiovascular Disease 05/14/22 Catherine Cm MD [address] [place] [address] Cardiovascular Disease 07/21/22 Valery Veronica PA-C 909 [place] [address] Physician Canteen Manager Dermatology 07/21/22 Brea Quinn APRN TUBE SKIVER 500 [place] [address] Nurse Practitioner Dermatology 09/21/22 Brea Quinn APRN TUBE SKIVER 6401 [place], [place] 225572 Assigned Surgical Provider 10/09/22 [place] [address] [address] [facility] 300 [place] [address] Assigned Musculoskeletal Provider 10/09/22 Alfonso Renteria MD [address] [facility] 200 [place], [place] 3[address] Assigned Neuroscience Provider 04/02/23 Radha Lomeli APRN TUBE SKIVER [address] [facility] [address] [place], [place] 06[address] Assigned Heart and Vascular Provider 05/28/23 Jelena David OD [address] [place] [address] Ophthalmology 06/15/23 Esha Grimm PA-C [address] [place] [address] Assigned PCP 07/16/23 Valery Veronica PA-C [address] [place] [address] Physician Canteen Manager Dermatology 09/19/23 Rey Tay MD [address] [place] [address] MD Gastroenterology 09/20/23 Rocky Zepeda DO [address] [place] [address] Physician Gastroenterology 09/20/23 Philip Dumont MD [address] [place] [address] Physician Ophthalmology 09/22/23 Meredith Carrera, [place] [address] [place] [address] Assigned Gastroenterology Provider 11/01/23 Neil Kent MD [address] [place] [address] Dermatology 11/02/23 [place] [address] [place], [place] [address] Neurological Surgery 12/26/23 documented as of this encounter
--- OUTSIDE RECORDS SUMMARY | 2024-01-07 18:05 | XMS_ITS | Encounter Summary ---
Author Organization [place] Address [address] [place] [address] Care Team Providers Care Police Commissioner Name Role Phone Thang Diana [place] [facility] Unavailable Rain Galaviz PA-C Unavailable Tavia Wyatt MD Unavailable Unavailable Erica Farrell APRN BLOOD BANK LABORATORY TECHNOLOGIST Unavailable Rich Barrett MD Unavailable Neil Kent MD Unavailable Diana Desir Stanislav [facility] Unavailable [phone] Livan Sharif MD Unavailable Catherine Cm MD Unavailable + Valery Veronica PA-C Unavailable [phone] Brea Quinn CONCRETE POURER BLOOD BANK LABORATORY TECHNOLOGIST Unavailable Brea Quinn CONCRETE POURER BLOOD BANK LABORATORY TECHNOLOGIST Unavailable Jose Francisco Johnson MD Unavailable Alfonso Renteria MD Unavailable + [phone] Esha Grimm PA-C Primary Care Provider Radha Lomeli CONCRETE POURER BLOOD BANK LABORATORY TECHNOLOGIST Unavailable [phone] Jelena David OD Unavailable Alfa Eshalincoln DOWC Unavailable [phone] Valery VeronicaC Unavailable [phone] Rey Tay MD Unavailable Rocky Zepeda Unavailable Philip Dumont MD Unavailable [phone] Meredith CarreraC Unavailable [phone] Neil Kent MD Unavailable Encounter Details Date Type Department Care Team (Latest Contact Info) Description 12/23/2023 Travel Social History Tobacco Use Types Packs/Day [...] 10/25/2023 [facility] of Occupat ional [facility] - Occupational Stress Questionnaire Answer [...] exercise at this level? 30 min 03/10/2023 [place] Depression Scale Answer Date Recorded [place] Depression Score 5 01/14/2021 Last EPDS Self [...] in an abandoned building, in an overnight snf, or couch-surfing.) Yes 07/14/2023 Are you worried [...] Description 01/09/2024 10:15 AM CDT Office Visit [facility] Neurology [facility] [address] [facility], [address] [place] [phone] Genny Hyman PA-C [facility] Epilepsy [facility] [address] [facility] 255 [place], [place] [address] [place] [address] [facility] 300 [place], [place] [address] 02/06/2024 10:00 AM CDT Office Visit [facility] [address] [phone] Neil Kent MD 500 [place], [place] [address]605 03/06/2024 3:00 PM CDT Office Visit [facility] Heart [facility] [address] [facility] [address] [place] [address] Radha Lomeli APRN BLOOD BANK LABORATORY TECHNOLOGIST [address] [place], [place] [address] 03/07/2024 9:00 AM CDT Hospital Encounter [facility] [address] [facility] 5th [place] [phone] Rocky Zepeda DO 500 [place], [place] 6[address] 03/07/2024 9:00 AM CDT - 03/07/2024 9:30 AM CDT [facility] [address] [facility] 5th [place] [phone] Rocky Zepeda DO 500 [place] [address] Esophagoscopy, gastroscopy, duodenoscopy (EGD), combined Scheduled Procedures Name Priority Associated Diagnoses Date/Ti ky ESOPHAGOGASTRODUODENOSCOPY Eosinophilic esophagitis Esophageal dysphagia 03/07/2024 9:00 AM CDT documented as of this encounter Visit Diagnoses Not on filedocumented in this encounter Additional Health Concerns Assessment Noted Time PHQ-9 Depression Total Score: 4 06/20/20 23 8:40 AM INSPECTOR CIRCUITRY NEGATIVE documented as of this encounter Care Teams Police Commissioner Relationship Specialty Start Date End Date Esha Grimm PA-C [address] [place] [address] PCP - General Family Medicine 05/04/23 Diana Desir, [facility] [address] [place] [address] Pharmacist Pharmacist 04/17/21 Rain Galaviz PA-C [address] [place] [address] ENMA KNUTSON [address] Physician Filament Maker Dermatology 04/28/21 Tavia Wyatt MD [address] [place] [address] ENMA KNUTSON [address] Dermatology 07/14/21 Erica Farrell APRN BLOOD BANK LABORATORY TECHNOLOGIST [address] [place], [place] [address] Nurse Practitioner Cardiovascular Disease 09/09/21 Rich Barrett MD [address] [facility] [address] [place] [address] Physician Ophthalmology 01/21/22 Neil Kent MD 500 [place], [place] 98[address] Dermatology 02/24/22 Diana Desir, [facility] 3033 [place], [place] [address]226 Assigned MTM Pharmacist 04/07/22 Livan Sharif MD [address] [place], [place] 12[address] Cardiovascular Disease 05/14/22 Catherine Cm MD [address] [place], [place] 74[address] Cardiovascular Disease 07/21/22 Valery Veronica, PA-C 909 [place], [place] 8[address]65 Physician Filament Maker Dermatology 07/21/22 Brea Quinn APRN BLOOD BANK LABORATORY TECHNOLOGIST 500 [place], [place] 402795 Nurse Practitioner Dermatology 09/21/22 Brea Quinn APRN BLOOD BANK LABORATORY TECHNOLOGIST 64[address] [facility] [place] [address] Assigned Surgical Provider 10/09/22 [place] [address] [place] [facility] 300 [place] [address] Assigned Musculoskeletal Provider 10/09/22 Alfonso Renteria MD [address] [facility] 200 [place], [place] [address]886 Assigned Neuroscience Provider 04/02/23 Radha Lomeli APRN BLOOD BANK LABORATORY TECHNOLOGIST [address] [facility] [address] [place] [address] Assigned Heart and Vascular Provider 05/28/23 Jelena David OD [address] [place] [address] Ophthalmology 06/15/23 Esha Grimm PA-C [address] [place] [address] Assigned PCP 07/16/23 Valery Veronica PA-C [address] [place] [address] 259375 Physician Filament Maker Dermatology 09/19/23 Rey Tay MD [address] [place] [address] 586565 Gastroenterology 09/20/23 Rocky Zepeda DO [address] [place] [address] 123265 Physician Gastroenterology 09/20/23 Philip Dumont MD 6 [place], [place] 98[address] Physician Ophthalmology 09/22/23 Meredith Carrera PA-C [address] [place] [address] Assigned Gastroenterology Provider 11/01/23 Neil Kent MD [address] [place] [address] 426410 Dermatology 11/02/23 documented as of this encounter
--- OUTSIDE RECORDS SUMMARY | 2024-01-07 18:05 | XMS_ITS | Encounter Summary ---
Author Organization [place] Address [address] [place] [address] Care Team Providers Care Repairer Kiln Car Name Role Phone Thang Diana [place] [facility] Unavailable Rain Galaviz PA-C Unavailable Tavia Wyatt MD Unavailable Unavailable Erica Farrell APRN FINISHER FIBERGLASS BOAT PARTS Unavailable Rich Barrett MD Unavailable Neil Kent MD Unavailable Diana Desir Stanislav [facility] Unavailable [phone] Livan Sharif MD Unavailable Catherine Cm MD Unavailable + Valery Veronica PA-C Unavailable [phone] Brea Quinn ROTARY RIG ENGINE OPERATOR FINISHER [employer] Unavailable Brea Quinn ROTARY RIG ENGINE OPERATOR FINISHER [employer] Unavailable Jose Francisco Johnson MD Unavailable Alfonso Renteria MD Unavailable [phone] Esha Grimm PA-C Primary Care Provider [phone] Radha Lomeli ROTARY RIG ENGINE OPERATOR FINISHER [employer] Unavailable [phone] Jelena David OD Unavailable Esha Grimm PA-C Unavailable [phone] Valery VeronicaC Unavailable Rey Tay MD Unavailable ZepedaEvansximena [place] Unavailable Philip Dumont MD Unavailable Meredith CarreraC Unavailable Neil Kent MD Unavailable Juan Pablo Emmanuel MD Unavailable [phone] Reason for Visit * Reason Onset Date Comments Same Day Appointment 12/26/2023 sore throat , body aches, headaches couple days Encounter Details Date Type Department Care Team (Late st Contact Info) Description 12/26/2023 Telephone [facility] [address] [place] [address] Esha Grimm PA-C [address] [place] [address] Same Day Appointment (sore throat, body aches, headaches couple days) Social History Tobacco Use Types Packs/Day Years [...] How often do you attend [facility] or anabaptism services? 1 to 4 times [...] Answer Date Recorded PHQ-2 Score 0 10/25/2023 [facility] of Occupat ional Health - [...] exercise at this level? 30 min 03/10/2023 [place] Depression Scale Answer Date Recorded [place] Depression Score 5 01/14/2021 Last EPDS Self [...] in an abandoned building, in an overnight long-term, or couch-surfing.) Yes 07/14/2023 Are you worried [...] encounter Miscellaneous Notes * Telephone Encounter - Iman Flores MA - 12/26/2023 8:51 AM CDT Patient states she ended up going to the ER. She was feeling short of breath. States she started smoking again. * Telephone Encounter - Nohemi Cortez V - 12/26/2023 8:09 AM CDT Reason for Call: Appointment Request Patient requesting this type of appt: sore throat, body aches, headaches couple days Requested provider: Esha Grimm Reason patient unable to be scheduled: Not within requested timeframe When does patient want to be seen/preferred time: Same day Comments: call patient Could we send this information to you in [facility] or would you prefer to receive a phone call?: Patient would prefer a phone call Okay to leave a detailed message?: Yes at Cell number on file: Telephone Information: Call taken on 12/26/2023 at 8:10 AM by Nohemi Cortez documented in this encounter Plan of Treatment Upcoming Encounters Date Type Department Care Team (Late st Contact Info) Description 01/09/2024 10:15 AM CDT Office Visit [facility] Neurology [facility] [address] [facility], [address] [place] [phone] Genny Hyman PA-C [facility] Epilepsy Care [address] [facility] [address] [place], [place] [address] [place] [address] [facility] [address] [place] [address] 02/06/2024 10:00 AM CDT Office Visit [facility] [address] [phone] Neil Kent MD 500 [place], [place] [address] 03/06/2024 3:00 PM CDT Office Visit [facility] Heart [facility] [address] [facility] [address] [place] [phone] Radha Lomeli, ROTARY RIG ENGINE OPERATOR FINISHER FIBERGLASS BOAT PARTS [address] [facility] [facility] [address] [place] [address] 03/07/2024 9:00 AM CDT Hospital Encounter [facility] [address] [facility] [address] 5th [place] [phone] Rocky Zepeda DO 500 [place], [place] [address] 03/07/2024 9:00 AM CDT - 03/07/2024 9:30 AM CDT Surgery [facility] 909 [facility] 5th [place] [phone] Rocky Zepeda DO 500 [place] [address] Esophagoscopy, gastroscopy, duodenoscopy (EGD), combined Scheduled Procedures Name Priority Associated Diagnoses Date/Ti mi ESOPHAGOGASTRODUODENOSCOPY Eosinophilic esophagitis Esophageal dysphagia 03/07/2024 9:00 AM CDT documented as of this encounter Visit Diagnoses Not on filedocumented in this encounter Additional Health Concerns Assessment Noted Time PHQ-9 Depression Total Score: 4 06/20/20 23 8:40 AM CLERICAL SECRETARY documented as of this encounter Care Teams Repairer Kiln Car Relationship Specialty Start Date End Date Esha Grimm PA-C [address] [place] [phone] PCP - General Family Medicine 05/04/23 Diana Desir, [facility] [address] [facility] [place] [place] [address] Pharmacist Pharmacist 04/17/21 Rain Galaviz PA-C [address] [place] [address] [address] [place] GARCIA [address] Physician Vegetable Handler Dermatology 04/28/21 Tavia Wyatt MD [address] [place] [address] [address] [place] [address] Dermatology 07/14/21 Erica Farrell APRN FINISHER [employer] [address] [facility] [address] [place] [address] Nurse Practitioner Cardiovascular Disease 09/09/21 Rich Barrett MD [address] [facility] [address] [place], [place] [address] Physician Ophthalmology 01/21/22 Neil Kent MD 500 [place] [address] Dermatology 02/24/22 Diana [facility] 3033 [place] [address] Assigned [place] Pharmacist 04/07/22 Livan Sharif MD [address] [address] Cardiovascular Disease 05/14/22 Catherine Cm MD [address] [address] Cardiovascular Disease 07/21/22 Valery Veronica, PAUcheC 909 [place], [place] 4[address] Physician Vegetable Handler Dermatology 07/21/22 Brea Quinn APRN FINISHER [employer] 500 [place] [address] Nurse Practitioner Dermatology 09/21/22 Brea Quinn APRN FINISHER [employer] [address] [place] [address] [place] [address] Assigned Surgical Provider 10/09/22 [place] [address] [place] [address] Assigned Musculoskeletal Provider 10/09/22 Alfonso Renteria MD [address] [place] [address] Assigned Neuroscience Provider 04/02/23 Radha Lomeli APRN FINISHER [employer] [address] [facility] [address] [place] [address] Assigned Heart and Vascular Provider 05/28/23 Jelena David OD [address] [facility] [place] [address] MD Ophthalmology 06/15/23 Esha Grimm PA-C [address] [place] [address] Assigned PCP 07/16/23 Valery Veronica PA-C [address] [place] [address] Physician Vegetable Handler Dermatology 09/19/23 Rey Tay MD [address] [place] [address] Gastroenterology 09/20/23 Rocky Zepeda DO [address] [place] [address]225 Physician Gastroenterology 09/20/23 Philip Dumont MD [address] [place] [address] 425825 Physician Ophthalmology 09/22/23 Meredith Carrera PA-C 909 [place] [address] Assigned Gastroenterology Provider 11/01/23 Neil Kent MD [address] [address] Dermatology 11/02/23 [place] [address] [place], [place] [address] Neurological Surgery 12/26/23 documented as of this encounter
--- OUTSIDE RECORDS SUMMARY | 2024-01-07 18:05 | XMS_ITS | Encounter Summary ---
Author Organization [facility] Address [address] [place] [address] Care Team Providers Care Donor Center Technician Name Role Phone Thang Diana Mayers [facility] Unavailable [phone] Rain Galaviz PA-C Unavailable [phone] Tavia Wyatt MD Unavailable Unavailable Erica Farrell APRN CONTROL CENTER OPERATOR Unavailable Rich Barrett MD Unavailable Neil Kent MD Unavailable Diana Desir Stanislav [facility] Unavailable [phone] Livan Sharif MD Unavailable Catherine Cm MD Unavailable + Valery Veronica PA-C Unavailable [phone] Brea Quinn HELMINTHOLOGY TEACHER CONTROL CENTER OPERATOR Unavailable Brea Quinn HELMINTHOLOGY TEACHER CONTROL CENTER OPERATOR Unavailable [phone] Jose Francisco Johnson MD Unavailable Alfonso Renteria MD Unavailable + [phone] Esha Grimm PA-C Primary Care Provider Radha Lomeli HELMINTHOLOGY TEACHER CONTROL CENTER OPERATOR Unavailable [phone] Jelena David OD Unavailable Esha Grimm Adam PA-C Unavailable [phone] Valery Veronica PA-C Unavailable Rey Tay MD Unavailable ZepedaRocky Unavailable Philip Dumont MD Unavailable Meredith Carrera PA-C Unavailable [phone] Neil Kent MD Unavailable Juan Pablo Emmanuel MD Unavailable [phone] Reason for Referral * Diagnostic Imaging MRI (Routine) - Closed Specialty Diagnoses / Procedures [facility] Referred To Contact Radiology. Diagnoses Abnormal finding on MRI of brain Chiari malformation type I (H) Procedures MR Brain w/o & w Contrast Ebony Cid APRN CONTROL CENTER OPERATOR [address] [place] [address] Referral ID Status Reason Start Date Expiration Date Visits Re quested Visits Authorized [id number] Closed 01/05/2024 01/04/2025 1 1 * Diagnostic Imaging MRI (Routine) - Closed Specialty Diagnoses / Procedures [facility] Referred To Contact Radiology. Diagnoses Chiari malformation type I (H) Numbness and tingling of upper extremity Procedures MR Cervical Spine w/o & w Contrast Ebony Cid APRN CONTROL CENTER OPERATOR [address] [place] [address] Referral ID Status Reason Start Date Expiration Date Visits Re quested Visits Authorized [id number] Closed 01/05/2024 01/04/2025 1 1 Reason for Visit * Diagnostic Imaging MRI (Routine) - Closed Specialty Diagnoses / Procedures Referred By Qian mayers Referred To Contact Radiology. Diagnoses Abnormal finding on MRI of brain Chiari malformation type I (H) Procedures MR Brain w/o & w Contrast Ebony Cid APRN CONTROL CENTER OPERATOR [address] [place] [address] Referral ID Status Reason Start Date Expiration Date Visits Re quested Visits Authorized [id number] Closed 01/05/2024 01/04/2025 1 1 Encounter Details Date Type Department Care Team (Latest Contact Info) Description 01/06/2024 10:53 AM CDT - 01/06/2024 11:59 PM CDT Hospital Encounter [address] [address] Ebony Cid APRN CONTROL CENTER OPERATOR [address] [place] [address] Chiari malformation type I (H); Numbness and tingling of upper extremity; Abnormal finding on MRI of brain Discharge Disposition: Home or Self Care Social [...] Answer Date Recorded PHQ-2 Score 0 10/25/2023 [facility] - Occupational Stress Questionnaire Answer [...] exercise at this level? 30 min 03/10/2023 [place] Depression Scale Answer Date Recorded [place] Depression Score 5 01/14/2021 Last EPDS Self [...] AM CDT documented as of this encounter Medications at [...] 2 10/01/2022 documented as of this encounter Plan of Treatment Upcoming Encounters Date Type Department Care Team (Late st Contact Info) Description 01/09/2024 10:15 AM CDT Office Visit [facility] Neurology [address], [address] [place] [address] Genny Hyman PA-C [facility] Epilepsy [facility] 5775 [facility] 255 [place], [place] [address] [place] [address] [facility] 300 [place], [place] [address] 02/06/2024 10:00 AM CDT Office Visit [facility] [address] [address] Neil Kent MD 500 [place] [address] 03/06/2024 3:00 PM CDT Office Visit [facility] Heart [facility] [address] [place] [address] Radha Lomeli, HELMINTHOLOGY TEACHER CONTROL CENTER OPERATOR [address] [place] [address] 03/07/2024 9:00 AM CDT Hospital Encounter [facility] OR [address] 5th [place] [phone] Rocky Zepeda DO 500 [place] [address] 03/07/2024 9:00 AM CDT - 03/07/2024 9:30 AM CDT Surgery [facility] OR [address]th [place] [address] Rocky Zepeda DO [address] [place] [address] Esophagoscopy, gastroscopy, duodenoscopy (EGD), combined Scheduled Procedures Name Priority Associated Diagnoses Date/Ti me ESOPHAGOGASTRODUODENOSCOPY Eosinophilic esophagitis Esophageal dysphagia 03/07/2024 9:00 AM CDT documented as of this encounter Procedures Procedure Name Priority Date/Time Associated Diagnosis Comments MR CERVICAL SPINE W/O & W CONTRAST STAT 01/06/2024 12:41 PM CDT Chiari malformation type I (H) Numbness and tingling of upper extremity MR BRAIN W/O & W CONTRAST STAT 01/06/2024 12:41 PM CDT Abnormal finding on MRI of brain Chiari malformation type I (H) documented in this encounter Results * MR Brain w/o [...] MR BRAIN W/O and W CONTRAST LOCATION: [facility] DATE: 01/06/2024 INDICATION: numbness tingling both [...] MR BRAIN W/O and W CONTRAST LOCATION: [facility] DATE: 01/06/2024 INDICATION: numbness tingling both arms and chest, torso. Recheck [id number] and hx Chiari and right parietal abnormality, [...] at the right lateral aspect of the N2kpmgjgekg body. Ebony Cid APRN CONTROL CENTER OPERATOR IMG MRI ORDERABLES * MR Cervical Spine [...] MR BRAIN W/O and W CONTRAST LOCATION: [facility] DATE: 01/06/2024 INDICATION: numbness tingling both [...] MR BRAIN W/O and W CONTRAST LOCATION: [facility] DATE: 01/06/2024 INDICATION: numbness tingling both arms and chest, torso. Recheck [id number] and hx Chiari and right parietal abnormality, [...] at the right lateral aspect of the M6ujsarkviv body. Ebony Cid APRN CONTROL CENTER OPERATOR IMG MRI ORDERABLES documented in this encounter Visit Diagnoses Diagnosis Chiari malformation type I (H) Compression of [...] MAR Action Action Date Dose Rate Site gadobutrol (GADAVIST) injection 8.5 mL 8.5 mL, Intravenous, ONCE, On Tue01/06/24 at 1230, For 1 dose, Supplied by, and administered by MRI. $Given 01/06/2024 12:27 PM CDT 8.5 mLs documented in this encounter Additional Health Concerns Assessment Noted Time PHQ-9 Depression Total Score: 4 06/20/20 23 8:40 AM ASSISTANT REFINERY OPERATOR documented as of this encounter Care Teams Donor Center Technician Relationship Specialty Start Date End Date Esha Grimm PA-C [address] [place] [address] PCP - General Family Medicine 05/04/23 Diana Desir [facility] [address] [place], [place] 76[address] Pharmacist Pharmacist 04/17/21 Rain Galaviz PA-C [address] [place] [address] [address] [place] [address] Physician Interpretive Program Coordinator Dermatology 04/28/21 Tavia Wyatt MD [address] [place] [address] [address] [place] [address] Dermatology 07/14/21 Erica Farrell APRN CONTROL CENTER OPERATOR 6405 [facility] [address] [place] [address] Nurse Practitioner Cardiovascular Disease 09/09/21 Rich Barrett MD 516 [facility] 9[address] [place], [place] 6432[address] Physician Ophthalmology 01/21/22 Neil Kent MD 500 [place], [place] [address] Dermatology 02/24/22 Diana Desir, [facility] [address] [place] [address] Assigned MTM Pharmacist 04/07/22 Livan Sharif MD [address] [facility] [address] [facility]00 [place] [address] Cardiovascular Disease 05/14/22 Catherine Cm MD [address] [place] 52[address] Cardiovascular Disease 07/21/22 Valery Veronica, PA-C 909 [place], [place] 763095 Physician Interpretive Program Coordinator Dermatology 07/21/22 Brea Quinn APRN CONTROL CENTER OPERATOR 500 [place] [address] Nurse Practitioner Dermatology 09/21/22 Brea Quinn APRN CONTROL CENTER OPERATOR 64[address] [place] [address] Assigned Surgical Provider 10/09/22 [place] [address] [place] [address] Assigned Musculoskeletal Provider 10/09/22 Alfonso Renteria MD [address] [place] [address] Assigned Neuroscience Provider 04/02/23 Armani Radha ARLENE Stovall CONTROL CENTER OPERATOR [address] [place] [address] Assigned Heart and Vascular Provider 05/28/23 Jelena David OD [address] [facility] [place] [address] MD Ophthalmology 06/15/23 Esha Grimm PA-C [address] [place] [address] Assigned PCP 07/16/23 Valery Veronica PA-C [address] [place] [address]38[address] Physician Interpretive Program Coordinator Dermatology 09/19/23 Rey Tay MD [address] [place] [address] 235575 Gastroenterology 09/20/23 Rocky Zepeda DO [address] [place] [address] 904615 Physician Gastroenterology 09/20/23 Philip Dumont MD [address] [place] [address] 527485 Physician Ophthalmology 09/22/23 Meredith Carrera PA-C [address] [place] [address] 475935 Assigned Gastroenterology Provider 11/01/23 Neil Kent MD [address] [place] [address] Dermatology 11/02/23 [place] [address] [place] [address] Neurological Surgery 12/26/23 documented as of this encounter
--- OUTSIDE RECORDS SUMMARY | 2024-01-07 18:05 | XMS_ITS | Encounter Summary ---
Author Organization [facility] Address [address] [place] [address] Care Team Providers Care Maturity Checker Name Role Phone Thang Diana [place] [facility] Unavailable Rain Galaviz PA-C Unavailable [phone] Tavia Wyatt MD Unavailable Unavailable Erica Farrell APRN ELECTRICIAN REFINERY Unavailable Rich Barrett MD Unavailable Neil Kent MD Unavailable Diana Desir Stanislav [facility] Unavailable [phone] Livan Sharif MD Unavailable Catherine Cm MD Unavailable + Valery Veronica PA-C Unavailable [phone] Brea Quinn BROKERAGE MANAGER ELECTRICIAN REFINERY Unavailable Brea Quinn BROKERAGE MANAGER ELECTRICIAN REFINERY Unavailable Jose Francisco Johnson MD Unavailable Alfonso Renteria MD Unavailable + [phone] Esha Grimm PA-C Primary Care Provider [phone] Radha Lomeli BROKERAGE MANAGER ELECTRICIAN REFINERY Unavailable [phone] Jelena David OD Unavailable Alfa Eshalincoln [facility] Unavailable [phone] Valery VeronicaC Unavailable [phone] Rey Tay MD Unavailable Rocky Zepeda Unavailable Philip Dumont MD Unavailable [phone] Meredith CarreraC Unavailable [phone] Neil Kent MD Unavailable Encounter Details Date Type Department Care Team (Latest Contact Info) Description 12/21/2023 Travel Social History Tobacco Use Types Packs/Day [...] [facility] - Occupational Stress Questionnaire Answer [...] exercise at this level? 30 min 03/10/2023 [place] Depression Scale Answer Date Recorded [place] Depression Score 5 01/14/2021 Last EPDS Self [...] in an abandoned building, in an overnight penitentiary, or couch-surfing.) Yes 07/14/2023 Are you worried [...] Description 01/09/2024 10:15 AM CDT Office Visit [facility] Neurology [facility] [address] [facility], [address] [place] [phone] Genny Hyman PA-C [facility] Epilepsy [facility] 5775 [facility] 255 [place], [place] 1832[address] [place] [address] [facility] [address] [place], [place] [address] 02/06/2024 10:00 AM CDT Office Visit [facility] [address] [phone] Neil Kent MD 500 [place], [place] [address] 03/06/2024 3:00 PM CDT Office Visit [facility] Heart [facility] [address] [facility] [address] [place] [address] Radha Lomeli APRN ELECTRICIAN REFINERY [address] [place], [place] [address] 03/07/2024 9:00 AM CDT Hospital Encounter [facility] 909 [facility] 5th [place] [phone] Rocky Zepeda DO 500 [place], [place] 735735 03/07/2024 9:00 AM CDT - 03/07/2024 9:30 AM CDT [facility] 909 [facility] 5th [place] [phone] Rocky Zepeda DO 500 [place] [address] Esophagoscopy, gastroscopy, duodenoscopy (EGD), combined Scheduled Procedures Name Priority Associated Diagnoses Date/Ti or ESOPHAGOGASTRODUODENOSCOPY Eosinophilic esophagitis Esophageal dysphagia 03/07/2024 9:00 AM CDT documented as of this encounter Visit Diagnoses Not on filedocumented in this encounter Additional Health Concerns Assessment Noted Time PHQ-9 Depression Total Score: 4 06/20/20 23 8:40 AM VISUAL COMMUNICATIONS INSTRUCTOR documented as of this encounter Care Teams Maturity Checker Relationship Specialty Start Date End Date Esha Grimm PA-C [address] [place] [address] PCP - General Family Medicine 05/04/23 Diana Desir, [facility] [address] [place] [address] Pharmacist Pharmacist 04/17/21 Rain Galaviz PA-C [address] [place] [address] [place] [address] Physician Property Utilization Officer Dermatology 04/28/21 Tavia Wyatt MD [address] [place] [address] [place] [address] Dermatology 07/14/21 Erica Farrell APRN ELECTRICIAN REFINERY [address] [place], [place] 5[address] Nurse Practitioner Cardiovascular Disease 09/09/21 Rich Barrett MD 516 [facility] 9A [place] [address] Physician Ophthalmology 01/21/22 Neil Kent MD 500 [place], [place] 144425 Dermatology 02/24/22 Diana Desir, [facility] [address] [place], [place] [address] Assigned MTM Pharmacist 04/07/22 Livan Sharif MD [address] [place], [place] [address] Cardiovascular Disease 05/14/22 Catherine Cm MD [address] [place], [place] 43[address]25 Cardiovascular Disease 07/21/22 Valery Veronica, PA-C 909 [place], [place] 450205 Physician Property Utilization Officer Dermatology 07/21/22 Brea Quinn APRN ELECTRICIAN REFINERY 500 [place], [place] 8[address]45 Nurse Practitioner Dermatology 09/21/22 Brea Quinn APRN ELECTRICIAN REFINERY 6401 [facility] [place] [address] Assigned Surgical Provider 10/09/22 [place] [address] [address] [facility] 300 [place] [address] Assigned Musculoskeletal Provider 10/09/22 Alfonso Renteria MD [address] [facility] 200 [place], [place] 250[address] Assigned Neuroscience Provider 04/02/23 Radha Lomeli APRN ELECTRICIAN REFINERY 6405 [facility] [address] [place] [address] Assigned Heart and Vascular Provider 05/28/23 Jelena David OD [address] [facility] [place] [address] Ophthalmology 06/15/23 Esha Grimm PA-C [address] [place] [address] Assigned PCP 07/16/23 Valery Veronica PA-C [address] [place] [address] 294945 Physician Property Utilization Officer Dermatology 09/19/23 Rey Tay MD [address] [place] [address] 748605 Gastroenterology 09/20/23 Rocky Zepeda DO [address] [place] [address] 420845 Physician Gastroenterology 09/20/23 Philip Dumont MD 6 [place], [place] 06[address]85 Physician Ophthalmology 09/22/23 Meredith Carrera PA-C [address] [place] [address] Assigned Gastroenterology Provider 11/01/23 Neil Kent MD [address] [place] [address] Dermatology 11/02/23 documented as of this encounter
--- OUTSIDE RECORDS SUMMARY | 2024-01-07 18:05 | XMS_ITS | Encounter Summary ---
Author Organization [place] Address [address] [place] [address] Care Team Providers Care Structural Architect Name Role Phone Thang Diana [place] [facility] Unavailable [phone] Rain Galaviz PA-C Unavailable Tavia Wyatt MD Unavailable Unavailable Erica Farrell APRN CAREER DEVELOPMENT SPECIALIST Unavailable Rich Barrett MD Unavailable Neil Kent MD Unavailable Diana Desir Stanislav [facility] Unavailable [phone] Livan Sharif MD Unavailable Catherine Cm MD Unavailable + Valery Veronica PA-C Unavailable [phone] Brea Quinn SIGNAL TIMER CAREER DEVELOPMENT SPECIALIST Unavailable Brea Quinn SIGNAL TIMER CAREER DEVELOPMENT SPECIALIST Unavailable Jose Francisco Johnson MD Unavailable Alfonso Renteria MD Unavailable + [phone] Esha Grimm PA-C Primary Care Provider Radha Lomeli SIGNAL TIMER CAREER DEVELOPMENT SPECIALIST Unavailable Jelena David OD Unavailable [facility] PA-C Unavailable [phone] Valery Veronica PA-C Unavailable [phone] Rey Tay MD Unavailable Rocky Zepeda DO Unavailable Philip Dumont MD Unavailable [phone] Meredith Carrera PA-C Unavailable [phone] Neil Kent MD Unavailable Juan Pablo Emmanuel MD Unavailable Reason for Visit * Reason Onset Date Comments Call Back 12/21/2023 Schedule appt to brandy Encounter Details Date Type Department Care Team (Late st Contact Info) Description 12/21/2023 Telephone [facility] Heart [facility] [address] [facility] [address] [place] [address] Livan Sharif MD 6403 [facility] [address] [place] [address] Call Back (Schedule appt tomorrow ) Social History Tobacco Use Types Packs/Day [...] Answer Date Recorded PHQ-2 Score 0 10/25/2023 [facility] - Occupational Stress Questionnaire Answer Date [...] exercise at this level? 30 min 03/10/2023 [place] Depression Scale Answer Date Recorded [place] Depression Score 5 01/14/2021 Last EPDS Self [...] in an abandoned building, in an overnight custodial, or couch-surfing.) Yes 07/14/2023 Are you worried [...] encounter Miscellaneous Notes * Telephone Encounter - Jewels Delatorre - 12/22/2023 8:57 AM CDT Images from the original note were not included. 12/22/23 LVM for pt to c/b and if there is any avail sooner with any PAULA to offer - and also place pt on wait list with Dr. Sharif per msg. Ty-Sasi * Telephone Encounter - Carley Myles RN - 12/21/2023 4:16 PM CDT Discussed with patient. Pt states she can't make the OV scheduled for 12/22/23. Pt is stable at this time but was unsure if she should be waiting until Apr to see (only times available). Pt does have OV on 03/06/24 with Radha Lomeli CNP but would like this moved up sooner. Pt also requestto be put on wait list for . Routing to manager business continuity. Carley ZABALA [facility] * Telephone Encounter - Sandra Whiting - 12/21/2023 12:34 PM CDT [facility] Call Center Phone Message May a detailed message be left on voicemail: yes Reason for Call: Other: pt was calling to r/s her appt tomorrow with Ho that was scheduled per RN team. Pt has a conflict and is unable to make it but the next available is not until Apr. SAC can seeon current note that tomorrows appt was scheduled by an RN due to symptoms. Please call pt back to discuss r/s needs. Action Taken: Other: cardiology Travel Screening: Not Applicable Thank you! Special[facility] Access Center documented in this encounter Plan of Treatment Upcoming Encounters Date Type Department Care Team (Late st Contact Info) Description 01/09/2024 10:15 AM CDT Office Visit [facility] Neurology Clinics - [address], [address] [place] [phone] Genny Hyman PA-C [facility] Epilepsy [facility] 5775 [facility] 255 [place], [place] 5824[address] [place] [address] [facility] 300 [place], [place] [address] 02/06/2024 10:00 AM CDT Office Visit [facility] [address] [phone] Neil Kent MD 500 [place], [place] [address] 03/06/2024 3:00 PM CDT Office Visit [facility] Heart [facility] [address] [facility] [address] [place] [phone] Radha Lomeli SIGNAL TIMER CAREER DEVELOPMENT SPECIALIST [address] [place] [address] 03/07/2024 9:00 AM CDT Hospital Encounter [facility] OR [address] 5th [place] [phone] Rocky Zepeda DO 500 [place], [place] [address] 03/07/2024 9:00 AM CDT - 03/07/2024 9:30 AM CDT Surgery [facility] OR [address] [phone] Rocky Zepeda, DO 500 [place], [place] [address] Esophagoscopy, gastroscopy, duodenoscopy (EGD), combined Scheduled Procedures Name Priority Associated Diagnoses Date/Ti ma ESOPHAGOGASTRODUODENOSCOPY Eosinophilic esophagitis Esophageal dysphagia 03/07/2024 9:00 AM CDT documented as of this encounter Visit Diagnoses Not on filedocumented in this encounter Additional Health Concerns Infection Onset Date Last Indicated Resolved Time Rule Out COVID-19 12/26/2023 12/26/2023 12/26/2023 9:50 AM CDT Assessment Noted Time PHQ-9 Depression Total Score: 4 06/20/20 23 8:40 AM STUDENT DEVELOPMENT SPECIALIST documented as of this encounter Care Teams Structural Architect Relationship Specialty Start Date End Date Esha Grimm PA-C [address] [place] [phone] PCP - General Family Medicine 05/04/23 Diana Desir, [facility] [address] [place] [address] Pharmacist Pharmacist 04/17/21 Rain Galaviz PA-C [address] [place] [address] [address] [place] [address] Physician Stitcher Hand Dermatology 04/28/21 Tavia Wyatt MD [address] [place] [address] [address] [place] [address] Dermatology 07/14/21 Erica Farrell APRN CAREER DEVELOPMENT SPECIALIST [address] [place] [address] Nurse Practitioner Cardiovascular Disease 09/09/21 Rich Barrett MD [address] [place] [address] 633325 Physician Ophthalmology 01/21/22 Neil Kent MD 500 [place], [place] 236735 Dermatology 02/24/22 [facility] [address] [place] [address] Assigned [place] Pharmacist 04/07/22 Livan Sharif MD [address], [facility] [address] [place] [address] Cardiovascular Disease 05/14/22 Catherine Cm MD [address] [place], [place] [address] Cardiovascular Disease 07/21/22 Valery Veronica PA-C [address] [place] [address] Physician Stitcher Hand Dermatology 07/21/22 Brea Quinn APRN CAREER DEVELOPMENT SPECIALIST 500 [place] [address] Nurse Practitioner Dermatology 09/21/22 Brea Quinn APRN CAREER DEVELOPMENT SPECIALIST [address] [place] [address] Assigned Surgical Provider 10/09/22 [place] [address] [address] Assigned Musculoskeletal Provider 10/09/22 Alfonso Renteria MD [address] 109[address] Assigned Neuroscience Provider 04/02/23 Radha Lomeli APRN CAREER DEVELOPMENT SPECIALIST [address] [place] [address] Assigned Heart and Vascular Provider 05/28/23 Jelena David OD [address] [facility] [address] [place] [address] Ophthalmology 06/15/23 Esha Grimm PA-C [address] [place] [address] Assigned PCP 07/16/23 Valery Veronica PA-C [address] [place] [address] Physician Stitcher Hand Dermatology 09/19/23 Rey Tay MD 9 [place], [place] 174[address] MD Gastroenterology 09/20/23 Rocky Zepeda DO [address] [place] [address] Physician Gastroenterology 09/20/23 Philip Dumont MD [address] [place] [address]57[address] Physician Ophthalmology 09/22/23 Meredith Carrera, [place] [address] [place] [address] Assigned Gastroenterology Provider 11/01/23 Neil Kent MD [address] [address] Dermatology 11/02/23 [place] [address] [address] [place] [address] Neurological Surgery 12/26/23 documented as of this encounter
--- OUTSIDE RECORDS SUMMARY | 2024-01-07 18:05 | XMS_ITS | Encounter Summary ---
Author Organization [facility] Address [address] [place] [address] Care Team Providers Care Budget Specialist Name Role Phone Thang Diana Mayers [facility] Unavailable Rain Galaviz PA-C Unavailable Tavia Wyatt MD Unavailable Unavailable Erica Farrell APRN FOREST ECONOMIST Unavailable Rich Barrett MD Unavailable Neil Kent MD Unavailable Diana Desir Stanislav [facility] Unavailable [phone] Livan Sharif MD Unavailable Catherine Cm MD Unavailable + Valery Veronica PA-C Unavailable [phone] Brea Quinn BAKERY CLERK [employer] E[employer]OMIST Unavailable [phone] Brea Quinn BAKERY CLERK [employer]EST ECONOMIST Unavailable Jose Francisco Johnson MD Unavailable Alfonso Renteria MD Unavailable + [phone] Esha Grimm PA-C Primary Care Provider Radha Lomeli BAKERY CLERK [employer] E[employer]OMIST Unavailable [phone] Jelena David OD Unavailable Wicho Grimmlincoln Medina PA-C Unavailable [phone] Valery VeronicaC Unavailable Rey Tay MD Unavailable Rocky Zepeda DO Unavailable Philip Dumont MD Unavailable Meredith Carrera PA-C Unavailable [phone] Neil Kent MD Unavailable Reason for Visit * Diagnostic Imaging XR (Routine) - Pending Review Specialty Diagnoses / Procedures Referred By Qian mayers Referred To Contact Radiology. Diagnoses Chest tightness SOB (shortness of breath) Procedures XR Chest 2 Views Jaret Cortez APRN FOREST ECONOMIST [address] [place] [id number] Referral ID Status Reason Start Date Expiration Date V isits Requested Visits Authorized [id number] Pending Review 12/21/2023 12/20/2024 1 1 Encounter Details Date Type Department Care Team (Latest Contact Info) Description 12/21/2023 1:20 PM CDT Ancillary Procedure [facility] [id number] [place] [phone] Jaret Cortez APRN FOREST ECONOMIST [address] [place] [id number] Chest tightness; SOB (shortness of breath) Social History Tobacco Use Types Packs/Day Years [...] do you attend chur or buddhist services? 1 to 4 times per year [...] Answer Date Recorded PHQ-2 Score 0 [facility] [...] exercise at this level? 30 min 03/10/2023 Paxton Depression Scale Answer Date Recorded Paxton Depression Score 5 01/14/2021 Last EPDS Self [...] in an abandoned building, in an overnight retirement, or couch-surfing.) Yes 07/14/2023 Are you worried [...] Description 01/09/2024 10:15 AM CDT Office Visit [facility] [address], [address] [place] [address] Genny Hyman PA-C [facility] [address] [facility] [address] [place], [place] [address] [place] [address] [place] [address] [place], [place] [phone] 02/06/2024 10:00 AM CDT Office Visit [facility] [address] [phone] Neil Kent MD 500 [place] [address] 03/06/2024 3:00 PM CDT [facility] Visit [facility] [address] [facility] [address] [place] [phone] Radha Lomeli E, BAKERY CLERK FOREST ECONOMIST [address] [place], [place] [phone] 03/07/2024 9:00 AM CDT Hospital Encounter [facility] [address] [place] [address] [address] [place] [phone] Rocky Zepeda DO [address] [place] [address] 03/07/2024 9:00 AM CDT - 03/07/2024 9:30 AM CDT Surgery [facility] [address] [place] [phone] Rocky Zepeda DO [address] [place] [address] Esophagoscopy, gastroscopy, duodenoscopy (EGD), combined Scheduled Procedures Name Priority Associated Diagnoses Date/Ti me ESOPHAGOGASTRODUODENOSCOPY Eosinophilic esophagitis Esophageal dysphagia 03/07/2024 9:00 AM CDT documented as of this encounter Procedures Procedure Name Priority Date/Time Associated Diagnosis Comments XR CHEST 2 VIEWS STAT 12/21/2023 1:26 PM CDT Chest tightness SOB (shortness of breath) documented in this encounter Results * XR Chest 2 Views (12/21/2023 1:26 [...] Pulmonary vasculature is unremarkable. 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 [place] [address] Pharmacist Pharmacist 04/17/21 Rain Galaviz PA-C [address] [place] [address] [address] [place] [address] [employer] Receptionist Dermatology 04/28/21 Tavia Wyatt MD [address] [place] [address] [address] [facility] [address] Dermatology 07/14/21 Erica Farrell APRN FOREST ECONOMIST [address] [place] [address] Nurse Practitioner Cardiovascular Disease 09/09/21 Rich Barrett MD [address] [place] [address] [phone] Physician Ophthalmology 01/21/22 Neil Kent MD [address] [place] [id number] MD Dermatology 02/24/22 Diana Desir, [facility] [address] [place], [place] [phone] Assigned MTM Pharmacist 04/07/22 Livan Sharif MD [address] [place] [address] Cardiovascular Disease 05/14/22 Catherine Cm MD [address] [place] [id number] Cardiovascular Disease 07/21/22 Valery Veronica, PA-C [address] [place] [address] [phone] [employer]ician Law Firm Receptionist Dermatology 07/21/22 Brea Quinn APRN FOREST ECONOMIST [address] [place] [address] Nurse Practitioner Dermatology 09/21/22 Brea Quinn APRN FOREST ECONOMIST [address] [place] [address] Assigned Surgical Provider 10/09/22 [place] [address] [place] [facility] [address] [place], [place] [address] Assigned Musculoskeletal Provider 10/09/22 Alfonso Renteria MD [address] [facility] [address] [place], [place] [phone] Assigned Neuroscience Provider 04/02/23 Radha Lomeli APRN FOREST ECONOMIST [address] [facility] [address] [place] [address] Assigned Heart and Vascular Provider 05/28/23 Jelena David OD [address] [facility] [place] [address] Ophthalmology 06/15/23 Esha Grimm PA-C [address] [place] [phone] Assigned PCP 07/16/23 Valery Veronica PA-C [address] [place] [address] Physician Law Firm Receptionist Dermatology 09/19/23 Rey Tay MD [address] [place] [address] Gastroenterology 09/20/23 Rocky Zepeda DO [address] [place] [address] Physician Gastroenterology 09/20/23 Philip Dumont MD [address] [place] [address] Physician Ophthalmology 09/22/23 Meredith Carrera PA-C [address] [place] [address] Assigned Gastroenterology Provider 11/01/23 Neil Kent MD [address] [place] [address] Dermatology 11/02/23 documented as of this encounter
--- OUTSIDE RECORDS SUMMARY | 2024-01-07 18:06 | XMS_ITS | Encounter Summary ---
Author Organization [place] Address [address] [place] [id number] Care Team Providers Care Cleaner Window Name Role Phone Thang Diana Mayers [facility] Unavailable Rain Galaviz PA-C Unavailable Tavia Wyatt MD Unavailable Unavailable Erica Farrell APRN LUNCHROOM SUPERVISOR Unavailable Rich Barrett MD Unavailable Neil Kent MD Unavailable Diana Desir Stanislav [facility] Unavailable [phone] Livan Sharif MD Unavailable Catherine Cm MD Unavailable + Valery Veronica PA-C Unavailable [phone] Brea Quinn ASPHALT MIXER LUNCHROOM SUPERVISOR Unavailable [phone] Brea Quinn [employer]HALT MIXER LUNCHROOM SUPERVISOR Unavailable Jose Francisco Johnson MD Unavailable Alfonso Renteria MD Unavailable + [phone] Esha Grimm PA-C Primary Care Provider Radha Lomeli ASPHALT MIXER LUNCHROOM SUPERVISOR Unavailable [phone] Jelena David OD Unavailable [phone] Esha Grimm Adam PA-C Unavailable [phone] Valery Veronica PA-C Unavailable Rey Tay MD Unavailable Rocky Zepeda DO Unavailable Philip Dumont MD Unavailable Meredith Carrera PA-C Unavailable Neil Kent MD Unavailable Reason for Referral * Diagnostic Imaging XR (Routine) - Pending Review Specialty Diagnoses / Procedures Referred By Qian mayers Referred To Contact Radiology. Diagnoses Chest tightness SOB (shortness of breath) Procedures XR Chest 2 Views Jaret Cortez APRN CNP [address] [place] [address] Referral ID Status Reason Start Date Expiration Date V isits Requested Visits Authorized [id number] Pending Review 12/21/2023 12/20/2024 1 1 Reason for Visit * Reason Comments Urgent Care Patient presents wit h chest tightness and shortness of breath for 2x days. Patient also c/o vaginal odor. Patient would like sti testing. Vaginal Problem Shortness of Breath Encounter Details Date Type Department Care Team (Late st Contact Info) Description 12/21/2023 12:40 PM CDT Office Visit [facility] [address] [place] [address] Jaret Cortez APRN LUNCHROOM SUPERVISOR [address] [place] [address] [phone] Vaginal odor (Primary Dx); Chest tightness; SOB (shortness of breath) Social [...] How often do you attend chur or tenriism services? 1 to 4 times [...] Answer Date Recorded PHQ-2 Score 0 10/25/2023 [facility] [...] exercise at this level? 30 min 03/10/2023 [place] Depression Scale Answer Date Recorded [place] Depression Score 5 01/14/2021 Last EPDS Self [...] in an abandoned building, in an overnight prison, or couch-surfing.) Yes 07/14/2023 Are you worried [...] Sign Reading Time Taken Comments Blood Pressure 109/71 12/21/2023 12:41 PM CDT Pulse 72 12/21/2023 12:41 PM CDT Temperature 36.7 ??C (98.1 ??F) 12/21/2023 12:41 PM C DT Respiratory Rate 16 12/21/2023 12:41 PM CDT Oxygen Saturation 98% 12/21/2023 12:41 PM CDT Inhaled Oxygen Concentration - - Weight 83.9 kg (185 lb) 12/21/2023 12:41 PM CDT Height 167.6 cm (5' 6) 12/21/2023 12:41 PM CDT Body Mass Index 29.86 12/21/2023 12:41 PM CDT documented in this encounter Progress Notes * Jaret Cortez, ARLENE LUNCHROOM SUPERVISOR - 12/21/2023 12:40 PM CDT URGENT CARE ASSESSMENT AND PLAN: ICD-10-CM 1. Vaginal odor N89.8 UA with Microscopic reflex to Culture - Clinic Collect Wet prep - Clinic Collect Chlamydia trachomatis/Neisseria gonorrhoeae by PCR - Clinic Collect UA Microscopic with Reflex to Culture Treponema Abs w Reflex to RPR and Titer Hepatitis C antibody HIV Antigen Antibody Combo Gates 2. Chest tightness R07.89 EKG 12-lead complete w/read - Clinics CBC with Platelets & Differential Comprehensive metabolic panel D dimer quantitative XR Chest 2 Views 3. SOB (shortness of breath) R06.02 EKG 12-lead complete w/read - Clinics CBC with Platelets & Differential Comprehensive metabolic panel D dimer quantitative XR Chest 2 Views Differential Diagnosis for chest pain includes ischemic chest pain (STEMI, NonSTEMI, or unstable angina), pulmonary embolism, aortic dissection, pericarditis, chest wall pain (rib strain, muscle strain, shingles), pneumonia, esophageal rupture, referred pain from the abdomen (biliary colic, cholecys titis, gastritis, gas pains, pancreatitis), anxiety or other causes of chest pain (GERD, esophagealspasm). CXR, EKG, CBC, CMP, and D-Dimer are unremarkable today. Will have patient continue to monitor symptoms and abstain from tobacco use. If symptoms are worsening I have asked her to be seen in the ED. Differential Diagnosis include but not limited to UTI, Vaginitis, and STD. UA and Wet prep is negative today. STI results collected and treatment pending abnormality. Reviewed alarm signs and symptoms needing urgent evaluation. Follow up with primary care provider with any problems, questions or concerns or if symptoms worsenor fail to improve. Patient verbalized understanding and is agreeable to plan. The patient was discharged ambulatory and in stable condition. Subjective Kim M Alex is a 23 year old who presents for chest tightness, SOB, and vaginal odor. She reports being 4 years nicotine free up until 2 weeks ago when she started vaping consistently. 2 to 3 days ago she started experiencing sternal chest tightness and shortness of breath. Pain History: When did you first notice your pain? 2-3 days Have you seen anyone else for your pain? Cardiology Where in your body do you have pain? Sternal Onset/Duration: Description: Location: middle Character: tight Radiation: none Duration: constant Intensity: Progression of Symptoms: Accompanying Signs & Symptoms: Shortness of breath: Yes Sweating: No Nausea/vomiting: No Lightheadedness: No Palpitations: No Fever/Chills: No Cough: No Heartburn: Yes, currently on Omeprazole but missed 2 doses. History: Family history of heart disease: Yes Tobacco use: Yes Previous similar symptoms: Yes Precipitating factors: Worse with exertion: No Worse with deep breaths: No Related to eating: No Better with burping: No Alleviating factors: None Therapies tried and outcome: None She is currently followed by cardiology for history of SVT and an ablation 2 years ago. Through chart review multiple episodes of atypical chest pain with negative workup. In addition, female complains of vaginal odor and white creamy vaginal discharge for 1 weeks. Denies abnormal vaginal bleeding, significant pelvic pain, dyspareunia, or fever/chills. No UTI symptoms.New sexual partner 1 week ago. LMP: Irregular periods due to IUD. LMP 6/10 Review of Systems All systems reviewed and negative except per HPI. Objective BP 109/71 (BP Location: Right arm) Pulse 72 Temp 98.1 ??F (36.7 ??C) (Oral) Resp 16 Ht 1.676 m (5' 6) Wt 83.9 kg (185 lb) SpO2 98% BMI 29.86 kg/m?? Physical Exam GENERAL: alert and no distress [...] murmur, click or rub, no peripheral edema ABDOMEN: soft, nontender, no hepatosplenomegaly, no masses and bowel sounds normal MS: no gross musculoskeletal defects noted, no edema NEURO: Normal strength and tone, mentation intact and speech normal EKG - Reviewed and interpreted by me appears normal, NSR, normal axis, normal intervals, no acute ST/T changes c/w ischemia, unchanged from previous tracings CHEST TWO VIEWS 12/21/2023 1:26 PM HISTORY: SOB and chest tightness. R/O acute etiology.; Chest tightness; SOB (shortness of breath) COMPARISON: May 19, 2023 IMPRESSION: There are no acute infiltrates. The cardiac silhouette is not enlarged. Pulmonary vasculature is unremarkable. Results for orders placed or performed in visit on 12/21/23 (from the past 24 hour(s)) UA with Microscopic reflex to Culture - Clinic Collect Specimen: Urine, Midstream Result Value Ref Range Color Urine Yellow Colorless, Straw, Light Yellow, Yellow Appearance Urine Clear Clear Glucose Urine Negative Negative mg/dL Bilirubin Urine Negative Negative Ketones Urine Negative Negative mg/dL Specific Coleman Urine 1.010 1.003 - 1.035 Blood Urine Negative Negative pH Urine 7.0 5.0 - 7.0 Protein Albumin Urine Negative Negative mg/dL Urobilinogen Urine 0.2 0.2, 1.0 E.U./dL Nitrite Urine Negative Negative Leukocyte Esterase Urine Negative Negative Wet prep - Clinic Collect Specimen: Vagina; Swab Result Value Ref Range Trichomonas Absent Absent Yeast Absent Absent Clue Cells Absent Absent WBCs/high power field 2+ (A) None UA Microscopic with Reflex to Culture Result Value Ref Range Bacteria Urine None Seen None Seen /HPF RBC Urine None Seen 0-2 /HPF /HPF WBC Urine None Seen 0-5 /HPF /HPF Narrative Urine Culture not indicated CBC with Platelets & Differential Narrative The following orders were created for panel order CBC with Platelets & Differential. Procedure Abnormality Status --------- ------ CBC with platelets and d...[[id number]] Abnormal Final result Please view results for these tests on the individual orders. Comprehensive metabolic panel Result Value Ref Range Sodium 138 135 - 145 mmol/L Potassium 4.3 3.4 - 5.3 mmol/L Carbon Dioxide (CO2) 23 22 - 29 mmol/L Anion Gap 13 7 - 15 mmol/L Urea Nitrogen 13.0 6.0 - 20.0 mg/dL Creatinine 0.64 0.51 - 0.95 mg/dL GFR Estimate >90 >60 mL/min/1.73m2 Calcium 9.5 8.6 - 10.0 mg/dL Chloride 102 98 - 107 mmol/L Glucose 91 70 - 99 mg/dL Alkaline Phosphatase 54 40 - 150 U/L AST 21 0 - 45 U/L ALT 22 0 - 50 U/L Protein Total 7.7 6.4 - 8.3 g/dL Albumin 4.3 3.5 - 5.2 g/dL Bilirubin Total 0.4 <=1.2 mg/dL D dimer quantitative Result Value Ref Range D-Dimer Quantitative <0.27 0.00 - 0.50 ug/mL FEU Narrative This D-dimer assay is intended for use in conjunction with a clinical pretest probability assessment model to exclude pulmonary embolism (PE) and deep venous thrombosis (DVT) in outpatients suspectedof PE or DVT. The cut-off value is 0.50 ug/mL FEU. CBC with platelets and differential Result Value Ref Range WBC Count 5.3 4.0 - 11.0 10e3/uL RBC Count 4.73 3.80 - 5.20 10e6/uL Hemoglobin 12.4 11.7 - 15.7 g/dL Hematocrit 39.3 35.0 - 47.0 % MCV 83 78 - 100 fL MCH 26.2 (L) 26.5 - 33.0 pg MCHC 31.6 31.5 - 36.5 g/dL RDW 12.5 10.0 - 15.0 % Platelet Count 248 150 - 450 10e3/uL % Neutrophils 48 % % Lymphocytes 40 % % Monocytes 5 % % Eosinophils 6 % % Basophils 0 % % Immature Granulocytes 0 % Absolute Neutrophils 2.6 1.6 - 8.3 10e3/uL Absolute Lymphocytes 2.1 0.8 - 5.3 10e3/uL Absolute Monocytes 0.3 0.0 - 1.3 10e3/uL Absolute Eosinophils 0.3 0.0 - 0.7 10e3/uL Absolute Basophils 0.0 0.0 - 0.2 10e3/uL Absolute Immature Granulocytes 0.0 <=0.4 10e3/uL documented in this encounter Plan of Treatment Upcoming Encounters Date Type Department Care Team (Late st Contact Info) Description 01/09/2024 10:15 AM CDT Office Visit [facility] Neurology [facility] [address] [facility], [address] [place] [phone] Genny Hyman PA-C [facility] Ep[facility]psy [facility] [address] [facility] [address] [place], [place] [phone] [place] [address] [facility] [address] [place], [place] [address] 02/06/2024 10:00 AM CDT Office Visit [facility] [address] [phone] Neil Kent MD [address] [place], [place] [phone] 03/06/2024 3:00 PM CDT Office Visit [facility] Heart [facility] [address] [facility] [address] [place] [phone] Radha Lomeli APRN LUNCHROOM SUPERVISOR [address] [facility] [address] [place], [place] [address] 03/07/2024 9:00 AM CDT Hospital Encounter [facility] [address] [place] [address] [address] [place] [phone] Rocky Zepeda DO [address] [place], [place] [address] 03/07/2024 9:00 AM CDT - 03/07/2024 9:30 AM CDT Surgery [facility] [address] [place] [address] 5[address] [place] [phone] Rocky Zepeda, DO [address] [place] [address] Esophagoscopy, gastroscopy, duodenoscopy (EGD), combined Scheduled Procedures Name Priority Associated Diagnoses Date/Ti mn ESOPHAGOGASTRODUODENOSCOPY Eosinophilic esophagitis Esophageal dysphagia 03/07/2024 9:00 AM CDT documented as of this encounter Procedures Procedure Name Priority Date/Time Associated Diagnosis Comments CBC WITH PLATELETS AND DIFFERENTIAL Routine 12/21/2023 1:39 PM CDT Chest tightness SOB (shortness of breath) HIV ANTIGEN ANTIBODY COMBO Routine 12/21/2023 1:39 PM CDT Vaginal odor TREPONEMA ABS W REFLEX TO RPR AND TITER Routine 12/21/2023 1:39 PM CDT Vaginal odor CBC WITH PLATELETS & DIFFERENTIAL Routine 12/21/2023 1:39 PM CDT Chest tightness SOB (shortness of breath) HEPATITIS C ANTIBODY Routine 12/21/2023 1:39 PM CDT Vaginal odor D DIMER QUANTITATIVE STAT 12/21/2023 1:39 PM [...] 12/21/2023 Chest tightness SOB (shortness of breath) documented in this encounter Results * (ABNORMAL) CBC with platelets and differential (12/21/2023 1:39 PM CDT) WBC Count 5.3 4.0 - 11.0 10e3/uL [...] - 1.3 10e3/uL 12/21/2023 1:46 PM CDT LABORATORY Absolute Eosinophils 0.3 0.0 - 0.7 10e3/uL 12/21/2023 1:46 PM CDT LV LABORATORY Absolute Basophils 0.0 0.0 - 0.2 10e3/uL 12/21/2023 1:46 PM CDT LV LABORATORY Absolute Immature Granulocytes 0.0 <=0.4 10e3/uL 12/21/2023 1:46 PM CDT LABORATORY Blood BLOOD SPECIMEN / Unknown Venipuncture / Unknown 12/21/2023 1:39 PM CDT 12/21/2023 1:39 PM CDT Jaret Cortez APRN [facility] LAB - BLOOD ORD ERABLES LABORATORY [facility] [address] [facility] (no room number, 1st floor of [facility]) [place] [address], [facility] [phone] * HIV Antigen Antibody Combo Gates (12/21/2023 1:39 PM CDT) [facility] HIV Antigen Antibody Combo Nonreactive Nonreactive 12/22/2023 [...] 12/21/2023 1:39 PM CDT Jaret Cortez APRN [facility] LAB - BLOOD ORD ERABLES U LABORATORY [facility] [address] [facility], [address] [place] [address], [facility] * Hepatitis C antibody (12/21/2023 1:39 PM CDT) [facility] Hepatitis C Antibody Nonreactive Nonreactive 12/22/2023 [...] 12/21/2023 1:39 PM CDT Jaret Cortez APRN [facility] LAB - BLOOD ORD ERABLES Performing Organization Address City/[facility]/ZIP Co de Phone Number LABORATORY [facility] Core Lab [address] [facility], Room [address] * Treponema Abs w Reflex to RPR and Titer (12/21/2023 1:39 PM CDT) [facility] Treponema Antibody Total Nonreactive Nonreactive 12/21/2023 6:44 PM CDT SPECIALTY CORE/PROT/EN DO Blood BLOOD SPECIMEN / Unknown Venipuncture / Unknown 12/21/2023 1:39 PM CDT 12/21/2023 1:39 PM CDT Jaret Cortez APRN [facility] LAB - BLOOD ORD ERABLES SPECIALTY CORE/PROT/ENDO Specialty Core/Prot/Endo [address] [facility], [address] * D dimer quantitative (12/21/2023 1:39 PM CDT) [facility] D-Dimer Quantitative <0.27 0.00 - 0.50 ug/mL FEU 12/21/2023 2:51 PM CDT RH LABORATORY Blood BLOOD SPECIMEN / Unknown Venipuncture / Unknown 12/21/2023 1:39 PM CDT 12/21/2023 1:39 PM CDT [facility] LABORATORY - 12/21/2023 2:51 PM CDT This D-dimer assay is intended for use in conjunction with a clinical pretest probability assessment model to exclude pulmonary embolism (PE) and deep venous thrombosis (DVT) in outpatients suspected of PE or DVT. The cut-off value is 0.50 ug/mL FEU. Samuelj Helen Cortez ASPHALT MIXER LUNCHROOM SUPERVISOR LAB - BLOOD ORD ERABLES LABORATORY [facility] Acute Care Lab [address] [facility] Lab (1st floor, no room number) [place] [address], [facility] * Comprehensive metabolic panel (12/21/2023 1:39 PM CDT) [facility] Sodium 138 135 - 145 mmol/L 12/21/2023 [...] 12/21/2023 1:39 PM CDT Jaret Cortez APRN LUNCHROOM SUPERVISOR LAB - BLOOD ORD ERABLES RH LABORATORY [facility] Acute Care Lab [address] Lab (1st floor, no room number) [place] [address], [facility] * XR Chest 2 Views (12/21/2023 1:26 [...] APRN, CNP IMG DIAGNOSTIC IMAGING ORDERABLES * UA Microscopic with Reflex to Culture (12/21/2023 12:44 PM CDT) Bacteria Urine None Seen None Seen /HPF [...] 1:05 PM CDT Urine Culture not indicated Jaret Cortez APRN, CNP LAB - URINE ORD ERABLES LABORATORY [facility] [address] [facility] Lab (no room number, 1st floor of clinic) [place] [address], [facility] [phone] * Chlamydia trachomatis/Neisseria gonorrhoeae by PCR - Clinic Collect (12/21/2023 12:44 PM CDT) Chlamydia Trachomatis Negative Negative 12/22/2023 11:38 AM CDT [facility] LABORATORY Comment: Negative for C. trachomatis rRNA by flatwork assembler mediated amplification. A negative result by flatwork assembler mediated amplification does not preclude the presence of infection because results are dependent on proper and adequate collection, absence of inhibitors and sufficient rRNA to be detected. Neisseria gonorrhoeae Negative Negative 12/22/2023 11:38 AM CDT [facility] Comment:Negative for N. gono rrhoeae rRNA by flatwork assembler mediated amplification. A negative result by flatwork assembler mediated amplification does not preclude the presence of C. trachomatis infection because results are dependent on proper and adequate collection, absence of inhibitors and sufficient rRNA to be detected. Swab VAGINAL STRUCTURE / Unknown Non-blood Collection / Unknown 12/21/2023 12:44 PM CDT 12/21/2023 12:54 PM CDT Jaret Cortez APRN [facility] LAB - MICRO GEN ERAL ORDERABLES [facility] LABORATORY [facility] Inf. Diseases Diag. Lab [address] [facility], [address] [place] [phone] * (ABNORMAL) Wet prep - Clinic Collect (12/21/2023 12:44 PM CDT) Trichomonas Absent Absent REINA 12/21/2023 1:12 PM CDT LV LABORATORY Yeast Absent Absent REINA 12/21/2023 1:12 PM CDT [facility] LABORATORY Clue Cells Absent Absent REINA 12/21/2023 1:12 PM CDT LV LABORATORY WBCs/high power field 2+(A) None REINA 12/21/2023 1:12 PM CDT LV LABORATORY Swab VAGINAL STRUCTURE / Unknown Non-blood Collection / Unknown 12/21/2023 12:44 PM CDT 12/21/2023 12:54 PM CDT Jaret Cortez APRN [facility] LAB - MICRO GEN ERAL ORDERABLES LABORATORY [facility] Lab [address] [facility] Lab (no room number, 1st floor of clinic) [place] [address], [facility] [phone] * UA with Microscopic reflex to Culture - Clinic Collect (12/21/2023 12:44 PM CDT) Color Urine Yellow Colorless, Straw, Light Yellow, Yellow 12/21/2023 12:58 PM CDT LABORATORY Appearance Urine Clear Clear 12/21/19 12:58 PM CDT LV LABORATORY Glucose Urine Negative Negative mg/dL 12/21/2023 12:58 PM CDT LV LABORATORY Bilirubin Urine Negative Negative 12:58 PM CDT LV LABORATORY Ketones Urine Negative Negative mg/dL 12/21/2023 12:58 PM CDT LV LABORATORY Specific Coleman Urine 1.010 1.003 - 1.035 12/21/2023 12:58 PM CDT LV LABORATORY Blood Urine Negative Negative 12/21/2023 12:58 PM CDT LABORATORY pH Urine 7.0 5.0 - 7.0 12/21/2023 12:58 PM CDT LV LABORATORY Protein Albumin Urine Negative Negative mg/dL 12/21/2023 12:58 PM CDT LV LABORATORY Urobilinogen Urine 0.2 0.2, 1.0 E.U./dL 12/21/2023 12:58 PM CDT LV LABORATORY Nitrite Urine Negative Negative 12/21/2023 12:58 PM CDT LABORATORY Leukocyte Esterase Urine Negative Negative 12/21/2023 12:58 PM CDT LV LABORATORY Urine MID-STREAM URINE SPECIMEN / Unknown Non-blood Collection / Unknown 12/21/2023 12:44 PM CDT 12/21/2023 12:54 PM CDT Jaret Cortez APRN, CNP LAB - URINE ORD ERABLES LABORATORY [facility] [address] [facility] Lab (no room number, 1st floor of clinic) [place] [address], [facility] [phone] * EKG 12-lead complete w/read - Clinics (12/21/2023) Bauj Helen Cortez ASPHALT MIXER LUNCHROOM SUPERVISOR ECG ORDERABLES documented in this encounter Visit Diagnoses Diagnosis Vaginal odor- Primary Unspecified symptom associated with female genital organs Chest tightness Other chest pain SOB (shortness of breath) Shortness of breath Chest tightness Other chest pain SOB (shortness of breath) Shortness of breath Eosinophilic esophagitis Esophageal dysphagia Dysphagia, pharyngoesophageal phase documented in this encounter Additional Health Concerns Assessment Noted Time PHQ-9 Depression Total Score: 4 06/20/20 23 8:40 AM 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 [address] [place], [place] [phone] Pharmacist Pharmacist 04/17/21 Rain Galaviz PA-C [address] [place] [address] [address] [place] [address] Physician Regulatory Affairs Portfolio Leader Dermatology 04/28/21 Tavia Wyatt MD [address] [place] [address] [address] [place] [address] Dermatology 07/14/21 Erica Farrell APRN LUNCHROOM SUPERVISOR [address] [facility] [address] [place], [place] [address] Nurse Practitioner Cardiovascular Disease 09/09/21 Rich Barrett MD [address] [facility] [address] [place], [place] [address] Physician Ophthalmology 01/21/22 Neil Kent MD 500 [place] [address] Dermatology 02/24/22 Diana Desir, [facility] [address] [place] [address] Assigned [place] Pharmacist 04/07/22 Livan Sharif MD [address] [facility] [facility] [address] [facility] [address] [place], [place] [address] Cardiovascular Disease 05/14/22 Catherine Cm MD [address] [place] [address] Cardiovascular Disease 07/21/22 Valery Veronica, PA-C [address] [place], [place] [address] Physician Regulatory Affairs Portfolio Leader Dermatology 07/21/22 Brea Quinn APRN LUNCHROOM SUPERVISOR 500 [place] [address] Nurse Practitioner Dermatology 09/21/22 Brea Qiunn APRN LUNCHROOM SUPERVISOR [address] [place] [address] Assigned Surgical Provider 10/09/22 [place] [address] [address] Assigned Musculoskeletal Provider 10/09/22 Alfonso Renteria MD [address] [facility] [address] [place] [address] Assigned Neuroscience Provider 04/02/23 Radha Lomeli APRN LUNCHROOM SUPERVISOR [address] [place] [address] Assigned Heart and Vascular Provider 05/28/23 Jelena David OD [address] [place] [address] MD Ophthalmology 06/15/23 Esha Grimm PA-C [address] [place] [phone] Assigned PCP 07/16/23 Valery Veronica PA-C [address] [place] [address] Physician Regulatory Affairs Portfolio Leader Dermatology 09/19/23 Rey Tay MD [address] [place] [phone] Gastroenterology 09/20/23 Rocky Zepeda DO [address] [place] [phone] Physician Gastroenterology 09/20/23 Philip Dumont MD [address] [place] [phone] Physician Ophthalmology 09/22/23 Meredith Carrera PA-C [address] [place] [phone] Assigned Gastroenterology Provider 11/01/23 Neil Kent MD [address] [place] [address] Dermatology 11/02/23 documented as of this encounter
--- OUTSIDE RECORDS SUMMARY | 2024-01-07 18:06 | XMS_ITS | Encounter Summary ---
Author Organization [place] Address [address] [place] [address] Care Team Providers Care Zipper Measurer Name Role Phone Thang Diana [place] [facility] Unavailable [phone] Rain Galaviz PA-C Unavailable [phone] Tavia Wyatt MD Unavailable Unavailable Erica Farrell APRN GOLD LAYER Unavailable Rich Barrett MD Unavailable Neil Kent MD Unavailable Diana Desir Stanislav [facility] Unavailable [phone] Livan Sharif MD Unavailable Catherine Cm MD Unavailable + Valery Vreonica PA-C Unavailable [phone] Brea Quinn COMMUNICATION TECHNICIAN GOLD LAYER Unavailable Brea Quinn COMMUNICATION TECHNICIAN GOLD LAYER Unavailable Jose Francisco Johnson MD Unavailable Alfonso Renteria MD Unavailable + [phone] Esha Grimm PA-C Primary Care Provider Radha Lomeli COMMUNICATION TECHNICIAN GOLD LAYER Unavailable [phone] Jelena David OD Unavailable Esha GrimmC Unavailable [phone] Valery VeronicaC Unavailable [phone] Rey Tay MD Unavailable ZepedaRocky Unavailable Philip Dumont MD Unavailable Meredith CarreraC Unavailable [phone] Neil Kent MD Unavailable Encounter Details Date Type Department Care Team (Late st Contact Info) Description 11/29/2023 MyC Medical Advice [facility] [address] [place] [address] Esha Grimm PA-C [id number] [place] [address] Social History Tobacco Use Types Packs/Day [...] PHQ-2 Score 0 10/25/2023 [facility] - Occupational Stress Questionnaire Answer Date [...] exercise at this level? 30 min 03/10/2023 [place] Depression Scale Answer Date Recorded [place] Depression Score 5 01/14/2021 Last EPDS Self [...] Date Recorded Do you have housing? (Catherine g is defined as stable permanent housing and does not include staying ouside in a car, in a tent, in an abandoned building, in an overnight mcc, or couch-surfing.) Yes 07/14/2023 Are you worried [...] Description 01/09/2024 10:15 AM CDT Office Visit [facility] Neurology [address], [address] [place] [address] Genny Hyman PA-C [facility] Epilepsy [facility] 5775 [facility] 255 [place], [place] 9[address] [place] [address] [facility] 300 [place], [place] [address] 02/06/2024 10:00 AM CDT Office Visit [facility] [address] [address] Neil Kent MD 500 [place], [place] [address] 03/06/2024 3:00 PM CDT Office Visit [facility] Heart [facility] [address] [facility] [address] [place] [phone] Radha Lomeli, COMMUNICATION TECHNICIAN GOLD LAYER [address] [place], [place] [address] 03/07/2024 9:00 AM CDT Hospital Encounter [facility] OR [address] 5th [place] [phone] Rocky Zepeda DO 500 [place], [place] 29[address]15 03/07/2024 9:00 AM CDT - 03/07/2024 9:30 AM CDT Surgery [facility] OR [address] [phone] Rocky Zepeda DO 500 [place], [place] 7[address] Esophagoscopy, gastroscopy, duodenoscopy (EGD), combined Scheduled Procedures Name Priority Associated Diagnoses Date/Ti la ESOPHAGOGASTRODUODENOSCOPY Eosinophilic esophagitis Esophageal dysphagia 03/07/2024 9:00 AM CDT documented as of this encounter Visit Diagnoses Not on filedocumented in this encounter Additional Health Concerns Assessment Noted Time PHQ-9 Depression Total Score: 4 06/20/20 23 8:40 AM CHIEF OPERATOR documented as of this encounter Care Teams Zipper Measurer Relationship Specialty Start Date End Date Esha Grimm PA-C [address] [place] [address] PCP - General Family Medicine 05/04/23 Diana Desir, [facility] [address] [place] [address] Pharmacist Pharmacist 04/17/21 Rain Galaviz PA-C [address] [place] [address] [place] [address] Physician Lodging House Keeper Dermatology 04/28/21 Tavia Wyatt MD [address] [place] [address] DR RAZO [facility] [place] [address] Dermatology 07/14/21 Erica Farrell APRN GOLD LAYER [address] [place] [address] Nurse Practitioner Cardiovascular Disease 09/09/21 Rich Barrett MD [address] [place] [address]155 Physician Ophthalmology 01/21/22 Neil Kent MD [address] [place] [address] Dermatology 02/24/22 [facility] 3033 [place], [place] 416896 Assigned [facility] Pharmacist 04/07/22 Livan Sharif MD [address] 00 [place] [address] Cardiovascular Disease 05/14/22 Catherine Cm MD [address] [place] [address] Cardiovascular Disease 07/21/22 Valery Veronica, PAUcheC [address] [place] [address]8735 Physician Lodging House Keeper Dermatology 07/21/22 Brea Quinn APRN GOLD LAYER 500 [place] [address] Nurse Practitioner Dermatology 09/21/22 Brea Quinn APRN GOLD LAYER 6401 [place] [address] Assigned Surgical Provider 10/09/22 [place] [address] [facility] 300 [place], [place] 8[address]137 Assigned Musculoskeletal Provider 10/09/22 Alfonso Renteria MD 5775 [facility] 200 [place], [place] 235616 Assigned Neuroscience Provider 04/02/23 Radha Lomeli APRN GOLD LAYER 6405 [facility] [address] [place] [address] Assigned Heart and Vascular Provider 05/28/23 Jelena David OD [address] [facility] [address] Ophthalmology 06/15/23 Esha Grimm PA-C [address] [place] [phone] Assigned PCP 07/16/23 Valery Veronica PA-C 909 [place] [address] Physician Lodging House Keeper Dermatology 09/19/23 Rey Tay MD [address] [place] [address] Gastroenterology 09/20/23 Rocky Zepeda DO [address] [place] [address] Physician Gastroenterology 09/20/23 Philip Dumont MD [address] [place] [address] Physician Ophthalmology 09/22/23 Meredith Carrera PA-C [address] [place] [address] Assigned Gastroenterology Provider 11/01/23 Neil Kent MD [address] [place] [address] Dermatology 11/02/23 documented as of this encounter
--- OUTSIDE RECORDS SUMMARY | 2024-01-07 18:06 | XMS_ITS | Encounter Summary ---
Author Organization [place] Address [address] [place] [address] Care Team Providers Care Lead Qa Analyst Name Role Phone Thang Diana Mayers [facility] Unavailable Rain Galaviz PA-C Unavailable [phone] Tavia Wyatt MD Unavailable Unavailable Erica Farrell APRN FRONT OF HOUSE MANAGER Unavailable Rich Barrett MD Unavailable Neil Kent MD Unavailable Diana Desir Stanislav [facility] Unavailable [phone] Livan Sharif MD Unavailable Catherine Cm MD Unavailable + Valery Veronica PA-C Unavailable [phone] Brea Quinn SPEAR FISHER FRONT OF HOUSE MANAGER Unavailable Brea Quinn SPEAR FISHER FRONT OF HOUSE MANAGER Unavailable [phone] Jose Francisco Johnson MD Unavailable Alfonso Renteria MD Unavailable + [phone] Esha Grimm PA-C Primary Care Provider Radha Lomeli SPEAR FISHER FRONT OF HOUSE MANAGER Unavailable [phone] Jelena David OD Unavailable Alfa Eshalincoln Medina PA-C Unavailable [phone] JeremíasValery PA-C Unavailable [phone] Rey Tay MD Unavailable Rocky Zepeda DO Unavailable Philip Dumont MD Unavailable Meredith Carrera PA-C Unavailable Neil Kent MD Unavailable Reason for Referral * Consultation (Routine: Next available opening) - Pending Review Specialty Diagnoses / Procedures Referred By Qian mayers Referred To Contact Neurology Diagnoses Seizure disorder (H) Genny Hyman PA-C [facility] 5775 [facility] [address] 255 [place] [address] Referral ID Status Reason Start Date Expiration Date V isits Requested Visits Authorized [id number] Pending Review 11/21/2023 11/20/2024 999 999 Question Answer Reason for Referral: General Neurology Scheduling Instructions: [facility] to coordinate your care as prescribed by your provider. If you don't hear from a congressional representative within 2 business days, please call . Comments Please be aware that coverage of these services is subject to the terms and limitations of your health insurance plan. Call member services at your health plan with any benefit or coverage questions. [facility] will call you to coordinate your care as prescribed by your provider. If you don't hear from a congressional representative within 2 business days, please call . Encounter Details Date Type Department Care Team (Late st Contact Info) Description 11/18/2023 Telephone [facility] 5772 [facility], [address] [place] [address] Alfonso Renteria MD [address] [facility] [address] 200 [place] [address] Social History Tobacco Use Types Packs/Day Years [...] How often do you attend chur or worship services? 1 to 4 times per year [...] Answer Date Recorded PHQ-2 Score 0 10/25/2023 [facility] - Occupational [...] exercise at this level? 30 min 03/10/2023 [place] Depression Scale Answer Date Recorded [place] Depression Score 5 01/14/2021 Last EPDS Self [...] encounter Miscellaneous Notes * Telephone Encounter - Brea Gabriel RN - 11/21/2023 3:57 PM CDT Patient returned call to clinic asking that referral be placed for gen neurology. Based off Genny Hyman note from 07/06, pt advised to see gen neurology. Referral placed * Telephone Encounter - Brea Gabriel RN - 11/21/2023 9:33 AM CDT Call returned to patient. She explained recent symptoms she has been experiencing. Increase weakness/tingling in extremities that radiates to neck. She has two close family members with MS diagnosis,and she wants to have this work up done with us. I explained to patient that Dr. Renteria and the rest of our physicians only specialize in epilepsy/seizures and that she should see a general neurologist for this. I offered patient that we write her a referral to one, but she replied that she doesn't think she needs a referral. I told patient if she does end up needing one in the future to call usback. Patient verbalized understanding of this and had no further questions. * Telephone Encounter - Uriel Horne - 11/18/2023 3:45 PM CDT Patient states that she is getting tingling weakness in the left arm for a while now it has moved to both arms and neck area, she also states that the core of the body is having that feeling Patient states it more when she has to have a BM but not always very random. Patient PCP is recommending a MRI and would like to see if MD would agree with that idea. Patient states that she has two aunts that have MS and primary is thinking she might have MS. Patient is asking for a call back to discuss. Phone number is verified. * Addendum Note - Brea Gabriel RN - 11/18/2023 3:45 PM CDTAddended by: BREA GABRIEL on: 11/21/2023 03:58 PM Modules accepted: Orders documented in this encounter Plan of Treatment Upcoming Encounters Date Type Department Care Team (Late st Contact Info) Description 01/09/2024 10:15 AM CDT Office Visit [facility] Neurology [facility] [address] [facility], [address] [place] [phone] Genny Hyman PA-C [facility] [place] 5775 [facility] 255 [place], [place] 1732[address] [place] [address] [address] [place], [place] [address] 02/06/2024 10:00 AM CDT Office Visit [facility] [address] [phone] Neil Kent MD 500 [place], [place] 6[address] 03/06/2024 3:00 PM CDT Office Visit [facility] Heart [facility] [address] [facility] [address] [place] [phone] Radha Lomeli, ARLENE FRONT OF HOUSE MANAGER 6405 [facility] [address] [place], [place] [address] 03/07/2024 9:00 AM CDT Hospital Encounter [facility] 9[address] [facility] [address] 5th [place] [phone] Rocky Zepeda DO 500 [place], [place] [address] 03/07/2024 9:00 AM CDT - 03/07/2024 9:30 AM CDT Surgery [facility] 909 [facility] [address] 5th [place] [phone] Rokcy Zepeda DO 500 [place] [address] Esophagoscopy, gastroscopy, duodenoscopy (EGD), combined Scheduled Procedures Name Priority Associated Diagnoses Date/Ti wv ESOPHAGOGASTRODUODENOSCOPY Eosinophilic esophagitis Esophageal dysphagia 03/07/2024 9:00 AM CDT Scheduled Referrals Name Type Priority Associated Diagnoses Orde r Schedule Adult Neurology Deputy Of Counter Intelligence Referral Referral Routine: Next available opening Seizure disorder (H) Expected: 11/21/2023 (Approximate), Expires: 11/20/2024 documented as of this encounter Visit Diagnoses Diagnosis Seizure disorder (H)- Primary Unspecified epilepsy without mention of intractable epilepsy Eosinophilic esophagitis Esophageal dysphagia Dysphagia, pharyngoesophageal phase documented in this encounter Additional Health Concerns Assessment Noted Time PHQ-9 Depression Total Score: 4 06/20/20 23 8:40 AM AUTOMATIC TOE LASTER documented as of this encounter Care Teams Lead Qa Analyst Relationship Specialty Start Date End Date Esha Grimm PA-C [address] [place] [address] PCP - General Family Medicine 05/04/23 Diana Desir, [facility] 3033 [facility] [place] [address] Pharmacist Pharmacist 04/17/21 Rain Galaviz PA-C [address] [place] [address] [address] [place] [address] Physician Nut Sheller Machine Operator Dermatology 04/28/21 Tavia Wyatt MD [address] [place] [address] [address] [place] [address] Dermatology 07/14/21 Erica Farrell APRN FRONT OF HOUSE MANAGER [address] [place] [address] Nurse Practitioner Cardiovascular Disease 09/09/21 Rich Barrett MD 516 [facility] [place] [address] Physician Ophthalmology 01/21/22 Neil Kent MD 500 [place] [address] Dermatology 02/24/22 Diana Desir, [facility] 3033 [place], [place] 241686 Assigned [place] Pharmacist 04/07/22 Livan Sharif MD [address] [place], [place] [address] Cardiovascular Disease 05/14/22 Catherine Cm MD [address] [place], [place] 9[address] Cardiovascular Disease 07/21/22 Valery Veronica PA-C 909 [place], [place] 998785 Physician Nut Sheller Machine Operator Dermatology 07/21/22 Brea Quinn APRN FRONT OF HOUSE MANAGER 500 [place], [place] 337435 Nurse Practitioner Dermatology 09/21/22 Brea Quinn APRN FRONT OF HOUSE MANAGER 6401 [facility] [address] Assigned Surgical Provider 10/09/22 [place] [address] [place] [address] Assigned Musculoskeletal Provider 10/09/22 Alfonso Renteria MD [address] [facility] 200 [place], [place] [address] Assigned Neuroscience Provider 04/02/23 Radha Lomeli, SPEAR FISHER FRONT OF HOUSE MANAGER 6405 [facility] [address] [place], [place] [address] Assigned Heart and Vascular Provider 05/28/23 Jelena David OD [address] [place] [address] Ophthalmology 06/15/23 Esha Grimm PA-C [address] [place] [address] Assigned PCP 07/16/23 Valery Veronica PA-C [address] [place] [address] 406635 Physician Nut Sheller Machine Operator Dermatology 09/19/23 Rey Tay MD [address] [place] [address] 508425 Gastroenterology 09/20/23 Rocky Zepeda DO [address] [place] [address] Physician Gastroenterology 09/20/23 Philip Dumont MD 6 [place] [address] Physician Ophthalmology 09/22/23 Meredith Carrera PA-C [address] [place] [address] Assigned Gastroenterology Provider 11/01/23 Neil Kent MD [address] [address] Dermatology 11/02/23 documented as of this encounter
--- OUTSIDE RECORDS SUMMARY | 2024-01-07 18:06 | XMS_ITS | Encounter Summary ---
Author Organization [place] Address [address] [place] [address] Care Team Providers Care Welder First Class Name Role Phone Thang Diana [place] [facility] Unavailable Rain Galaviz PA-C Unavailable Tavia Wyatt MD Unavailable Unavailable Erica Farrell APRN SHAKE PACKER Unavailable Rich Barrett MD Unavailable Neil Kent MD Unavailable Diana Desir Stanislav [facility] Unavailable [phone] Livan Sharif MD Unavailable Catherine Cm MD Unavailable + Valery Veronica PA-C Unavailable [phone] Brea Quinn SECURITY REPRESENTATIVE SHAKE PACKER Unavailable [phone] Brea Quinn SECURITY REPRESENTATIVE SHAKE PACKER Unavailable Jose Francisco Johnson MD Unavailable Alfonso Renteria MD Unavailable + [phone] Esha Grimm PA-C Primary Care Provider Radha Lomeli SECURITY REPRESENTATIVE SHAKE PACKER Unavailable [phone] Jelena David OD Unavailable Esha Grimm PA-C Unavailable [phone] Valery Veronica-C Unavailable [phone] Rey Tay MD Unavailable Rocky Zepeda DO Unavailable Philip Dumont MD Unavailable [phone] Meredith Carrera PA-C Unavailable [phone] Neil Kent MD Unavailable Juan Pablo Emmanuel MD Unavailable [phone] Encounter Details Date Type Department Care Team (Late st Contact Info) Description 11/21/2023 MyC Medical Advice [facility] G[facility]ology Clinic [address]th [place] [address] Sofia Alcantar Social History Tobacco Use Types Packs/Day Years [...] How often do you attend chur or faith services? 1 to 4 times per year [...] 0 10/25/2023 [facility] - Occupational Stress Questionnaire Answer Date [...] exercise at this level? 30 min 03/10/2023 [place] Depression Scale Answer Date Recorded [place] Depression Score 5 01/14/2021 Last EPDS Self [...] in an abandoned building, in an overnight longterm, or couch-surfing.) Yes 07/14/2023 Are you worried [...] Description 01/09/2024 10:15 AM CDT Office Visit [facility] Neurology [facility] [address] [facility], [address] [place] [address] Genny Hyman PA-C [facility] 5775 [facility] 255 [place], [place] [phone] [place] [address] [address] 300 [place], [place] 5[address] 02/06/2024 10:00 AM CDT Office Visit [facility] [address] [phone] Neil Kent MD 500 [place], [place] 8[address]25 03/06/2024 3:00 PM CDT Office Visit [facility] Heart [facility] [address] [facility] [address] [place] [phone] Radha Lomeli, SECURITY REPRESENTATIVE SHAKE PACKER [address] [facility] [address] [place] [address] 03/07/2024 9:00 AM CDT Hospital Encounter [facility] [place] 909 [facility] 5th [place] [phone] Rocky Zepeda, 500 [place], [place] [address]58[address] 03/07/2024 9:00 AM CDT - 03/07/2024 9:30 AM CDT Surgery [facility] [place] 909 [facility] 5th [place] [address] Rocky Zepeda DO 500 [place] [address] Esophagoscopy, gastroscopy, duodenoscopy (EGD), combined Scheduled Procedures [...] Total Score: 4 06/20/20 23 8:40 AM SHEET METAL FOREMAN documented as of this encounter Care Teams Welder First Class Relationship Specialty Start Date End Date Esha Grimm PA-C [address] [place] [address] PCP - General Family Medicine 05/04/23 Diana Desir [facility] 3033 [place] [address] Pharmacist Pharmacist 04/17/21 Rain Galaviz PA-C [address] [place] [address] [address] [place] [address] Physician Manager Document Dermatology 04/28/21 Tavia Wyatt MD [address] [place] [address] [place] [address] Dermatology 07/14/21 Erica Farrell APRN SHAKE PACKER [address] [place] [address] Nurse Practitioner Cardiovascular Disease 09/09/21 Rich Barrett MD [address] [place] [address] 369275 Physician Ophthalmology 01/21/22 Neil Kent MD [address] [place] [address] 714795 Dermatology 02/24/22 Diana Desir, [facility] [address] [place] [address] 380206 Assigned [facility] Pharmacist 04/07/22 Livan Sharif MD [address] [place] 885245 Cardiovascular Disease 05/14/22 Catherine Cm MD [address] [facility] [place] 307145 Cardiovascular Disease 07/21/22 Valery Veronica, PA-C [address] [place] [address] 211575 Physician Manager Document Dermatology 07/21/22 Brea Quinn APRN SHAKE PACKER 500 [place], [place] 446185 Nurse Practitioner Dermatology 09/21/22 Brea Quinn APRN SHAKE PACKER 6401 [place], [place] 686252 Assigned Surgical Provider 10/09/22 [place] [address] [address] Assigned Musculoskeletal Provider 10/09/22 Alfonso Renteria MD 5775 [facility] 200 [place], [place] 219406 Assigned Neuroscience Provider 04/02/23 Radha Lomeli APRN SHAKE PACKER [address] [address] 0964300 [place], [place] 9[address]05 Assigned Heart and Vascular Provider 05/28/23 Jelena David OD [address] [facility] [address] [place] [id number] Ophthalmology 06/15/23 Esha Grimm PA-C [address] [place] [address] Assigned PCP 07/16/23 Valery Veronica PA-C 909 [place], [place] 383225 Physician Manager Document Dermatology 09/19/23 Rey Tay MD 909 [place] [address] MD Gastroenterology 09/20/23 Rocky Zepeda DO [address] [place] [address] Physician Gastroenterology 09/20/23 Philip Dumont MD [address] [place] [address] Physician Ophthalmology 09/22/23 Meredith Carrera PA-C [address] [place] [address] Assigned Gastroenterology Provider 11/01/23 Neil Kent MD [address] [address] Dermatology 11/02/23 [place] [address] [place] [address] Neurological Surgery 12/26/23 documented as of this encounter
--- OUTSIDE RECORDS SUMMARY | 2024-01-07 18:06 | XMS_ITS | Encounter Summary ---
Author Organization [place] Address [address] [place] [address] Care Team Providers Care Customer Experience Retail Clerk Name Role Phone Thang Diana [place] [facility] Unavailable Rain Galaviz PA-C Unavailable Tavia Wyatt MD Unavailable Unavailable Erica Farrell APRN EXERCISE RIDER Unavailable Rich Barrett MD Unavailable Neil Kent MD Unavailable Diana Desir Stanislav [facility] Unavailable [phone] Livan Sharif MD Unavailable Catherine Cm MD Unavailable + Valery Veronica PA-C Unavailable [phone] Brea Quinn LOCKSTITCH HEMMER EXERCISE RIDER Unavailable Brea Quinn LOCKSTITCH HEMMER EXERCISE RIDER Unavailable [phone] Jose Francisco Johnson MD Unavailable Alfonso Renteria MD Unavailable + [phone] Esha Grimm PA-C Primary Care Provider Radha Lomeli LOCKSTITCH HEMMER EXERCISE RIDER Unavailable [phone] Jelena David OD Unavailable Alfa Eshalincoln DOWC Unavailable [phone] Valery VeronicaC Unavailable Rey Tay MD Unavailable Rocky Zepeda Unavailable Philip Dumont MD Unavailable Meredith CarreraC Unavailable [phone] Neil Kent MD Unavailable Reason for Visit * Reason Onset Date Comments Refill Request 11/17/2023 Ketoconazole 2% shampoo Encounter Details Date Type Department Care Team (Late st Contact Info) Description 11/17/[address] [address] Brea Quinn, [facility] 64[address] [place], [place] [address]082 Refill Request (Ketoconazole 2% shampoo) Social History Tobacco Use Types Packs/Day Years [...] often do you attend chur ch or sabianism services? 1 to 4 times [...] Recorded PHQ-2 Score 0 10/25/2023 [facility] [...] exercise at this level? 30 min 03/10/2023 [place] Depression Scale Answer Date Recorded [place] Depression Score 5 01/14/2021 Last EPDS Self [...] in an abandoned building, in an overnight correction, or couch-surfing.) Yes 07/14/2023 Are you worried [...] encounter Miscellaneous Notes * Telephone Encounter - Antonella Lauren RN - 11/17/2023 4:18 PM CDT Images from the original note were not included. Routing refill request to provider for review/approval because: Failed protocol Antifungal Agents [id number]/17/2023 04:17 PM Protocol Details Recent (12 mo) or future (90 days) visit within the authorizing provider's specialty Always Fail Criteria Future Office Visit: 02/06/2024 at Derm with Neil Kent MD Sophia L. GASOLINE DRAGLINE OPERATOR [facility] Dermatology [phone] * Telephone Encounter - Antonella Lauren RN - 11/17/2023 4:14 PM CDT Requested Prescriptions Pending Prescriptions Disp Refills ketoconazole (NIZORAL) 2 % external shampoo 120 mL 11 Sig: Use every 1-2 days when flared. Leave in few minutes before rinsing. Use twice weekly to prevent flares. There is no refill protocol information for this order Last Written Prescription Date: 10/01/22 Last Fill Quantity: 120 mL, # refills: 11 Last office visit: 10/01/2022 ; last virtual visit: Visit date not found with prescribing provider: Brea Quinn APRN CNP Future Office Visit: 02/06/2024 at [facility] with Neil Kent MD documented in this encounter Plan of Treatment Upcoming Encounters Date Type Department Care Team (Late st Contact Info) Description 01/09/2024 10:15 AM CDT Office Visit [facility] Neurology [facility] [address] [facility], [address] [place] [address] Genny Hyman PA-C [facility] Epilepsy [facility] 5775 [facility] [address] [place], [place] 70[address] [place] [address] [facility] 300 [place], [place] [address] 02/06/2024 10:00 AM CDT Office Visit [facility] [address] [phone] Neil Kent MD 500 [place], [place] [address] 03/06/2024 3:00 PM CDT Office Visit [facility] Heart [facility] [address] [facility] [address] [place] [phone] Radha Lomeli APRN CNP [address] [facility] [address] [place], [place] [address] 03/07/2024 9:00 AM CDT Hospital Encounter [facility] 909 [facility] 5th [place] [phone] Rocky Zepeda, 500 [place] [address] 03/07/2024 9:00 AM CDT - 03/07/2024 9:[address] [facility] 9[address] [facility] 5th [place] [phone] Rocky Zepeda DO 500 [place] [address] Esophagoscopy, gastroscopy, duodenoscopy (EGD), combined Scheduled Procedures Name Priority Associated Diagnoses Date/Ti tx ESOPHAGOGASTRODUODENOSCOPY Eosinophilic esophagitis Esophageal dysphagia 03/07/2024 9:00 AM CDT documented as of this encounter Visit Diagnoses Diagnosis Psoriasis Other psoriasis Eosinophilic esophagitis Esophageal dysphagia Dysphagia, pharyngoesophageal phase documented in this encounter Additional Health Concerns Assessment Noted Time PHQ-9 Depression Total Score: 4 06/20/20 23 8:40 AM PACKAGE CRIMPER documented as of this encounter Care Teams Customer Experience Retail Clerk Relationship Specialty Start Date End Date Esha Grimm PA-C [address] [place] [address] PCP - General Family Medicine 05/04/23 Diana Desir, [facility] [address] [place] [address] Pharmacist Pharmacist 04/17/21 Rain Galaviz PA-C [address] [place] [address] [address] [place] [address] Physician Medical Care Manager Dermatology 04/28/21 Tavia Wyatt MD [address] [place] [address] [address] [place] [address] Dermatology 07/14/21 Erica Farrell APRN EXERCISE RIDER [address] [place], [place] [address] Nurse Practitioner Cardiovascular Disease 09/09/21 Rich Barrett MD 516 [facility] 9A [place] [address] Physician Ophthalmology 01/21/22 Neil Kent MD 500 [place] [address] Dermatology 02/24/22 Diana Desir, [facility] 3033 [place], [place] 372496 Assigned MTM Pharmacist 04/07/22 Livan Sharif MD [address] [facility]00 [place], [place] 1764[address] Cardiovascular Disease 05/14/22 Catherine Cm MD [address] [address] Cardiovascular Disease 07/21/22 Valery Veronica PAUcheC 909 [place], [place] [address] Physician Medical Care Manager Dermatology 07/21/22 Brea Quinn APRN EXERCISE RIDER 500 [place], [place] [address] Nurse Practitioner Dermatology 09/21/22 Brea Quinn APRN EXERCISE RIDER 6401 [facility] [place] [address] Assigned Surgical Provider 10/09/22 [place] [address] [facility] [place] [address] Assigned Musculoskeletal Provider 10/09/22 Alfonso Renteria MD [address] [place], [place] [address] Assigned Neuroscience Provider 04/02/23 Radha Lomeli APRN EXERCISE RIDER [address] [facility] [address] [place] [address] Assigned Heart and Vascular Provider 05/28/23 Jelena David OD [address] [facility] [place] [address] Ophthalmology 06/15/23 Esha Grimm PA-C [address] [place] [phone] Assigned PCP 07/16/23 Valery Veronica PA-C 9 [place], [place] 510[address] Physician Medical Care Manager Dermatology 09/19/23 Rey Tay MD 9 [place], [place] [address] Gastroenterology 09/20/23 Rocky Zepeda DO 500 [place] [address] Physician Gastroenterology 09/20/23 Philip Dumont MD [address] [place] [address] Physician Ophthalmology 09/22/23 Meredith Carrera PA-C [address] [place] [address] Assigned Gastroenterology Provider 11/01/23 Neil Kent MD [address] [place] [address] Dermatology 11/02/23 documented as of this encounter
--- OUTSIDE RECORDS SUMMARY | 2024-01-07 18:06 | XMS_ITS | Encounter Summary ---
Author Organization [place] Address [address] [place] [address] Care Team Providers Care Irrigation Flume Layer Name Role Phone Thang Diana [place] [facility] Unavailable [phone] Rain Galaviz PA-C Unavailable Tavia Wyatt MD Unavailable Unavailable Erica Farrell APRN PAID INTERNSHIP Unavailable Rich Barrett MD Unavailable Neil Kent MD Unavailable Diana Desir Stanislav [facility] Unavailable [phone] Livan Sharif MD Unavailable Catherine Cm MD Unavailable + Valery Veronica PA-C Unavailable [phone] Brea Quinn [employer] PAID INTERNSHIP Unavailable Brea Quinn [employer] Unavailable Jose Francisco Johnson MD Unavailable Alfonso Renteria MD Unavailable + [phone] Esha Grimm PA-C Primary Care Provider [phone] Radha Lomeli [employer]NS[employer] Unavailable Jelena David OD Unavailable [phone] Alfa Esha M PA-C Unavailable [phone] Valery Veronica PA-C Unavailable [phone] Rey Tay MD Unavailable ZepedaEvansximena [facility] Unavailable Philip Dumont MD Unavailable Meredith Carrera PA-C Unavailable [phone] Neil Kent MD Unavailable Juan Pablo Emmanuel MD Unavailable Reason for Visit * Reason Onset Date Comments Appointment 12/02/2023 Clarification Encounter Details Date Type Department Care Team (Late st Contact Info) Description 12/02/2023 Telephone [facility] Heart [facility] [address] [facility] [address] [place] [address] Radha Lomeli E, [facility] [address] [facility] [address] [place] [address] Appointment (Clarification) Social History Tobacco Use Types Packs/Day Years [...] often do you attend chur ch or jewish services? 1 to 4 times per year [...] Answer Date Recorded PHQ-2 Score 0 10/25/2023 [facility]at [facility] - [...] exercise at this level? 30 min 03/10/2023 [place] Depression Scale Answer Date Recorded [place] Depression Score 5 01/14/2021 Last EPDS Self [...] encounter Miscellaneous Notes * Telephone Encounter - Carley Myles RN - 12/02/2023 10:22 AM CDT Discussed with patient and reviewed questions. Questions pertaining to OV's scheduled. Carley ZABALA [facility] * Telephone Encounter - Janett Fragoso - 12/02/2023 8:56 AM CDT [facility] Phone Message May a detailed message be left on voicemail: yes Reason for Call: Other: Patient called requesting to speak with a member of her care team. Patient states she has been receiving conflicting information, and would like clarification on next steps. Please call back to further discuss. Action Taken: Message routed to: Other: Cardiology Travel Screening: Not Applicable Thank you! [facility] documented in this encounter Plan of Treatment Upcoming Encounters Date Type Department Care Team (Late st Contact Info) Description 01/09/2024 10:15 AM CDT Office Visit [facility] Neurology [facility] [place] [address] [facility], [address] [place] [phone] Genny Hyman PA-C [facility] Epilepsy [facility] 5775 [facility] [address] [place] [address] [place] [address] [facility] [address] [place], [place] [address] 02/06/2024 10:00 AM CDT [facility] [address] [phone] Neil Kent MD 500 [place], [place] [address] 03/06/2024 3:00 PM CDT Office Visit [facility] Heart [facility] [address] [facility] [address] [place] [phone] Radha Lomeli, [facility] PAID INTERNSHIP [address] [place], [place] [address] 03/07/2024 9:00 AM CDT Hospital Encounter [facility] 909 [facility] 5th [place] [phone] Rocky Zepeda DO 500 [place] [address] 03/07/2024 9:00 AM CDT - 03/07/2024 9:30 AM CDT Surgery [facility] [address] [place] [phone] Rocky Zepeda DO 500 [place], [place] 9[address] Esophagoscopy, gastroscopy, duodenoscopy (EGD), combined Scheduled Procedures Name Priority Associated Diagnoses Date/Ti fl ESOPHAGOGASTRODUODENOSCOPY Eosinophilic esophagitis Esophageal dysphagia 03/07/2024 9:00 AM CDT documented as of this encounter Visit Diagnoses Not on filedocumented in this encounter Additional Health Concerns Infection Onset Date Last Indicated Resolved Time Rule Out COVID-19 12/26/2023 12/26/2023 12/26/2023 9:50 AM CDT Assessment Noted Time PHQ-9 Depression Total Score: 4 06/20/20 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 documented as of this encounter Care Teams Irrigation Flume Layer Relationship Specialty Start Date End Date Esha Grimm PA-C [address] [place] [address] PCP - General Family Medicine 05/04/23 Diana Desir [facility] 30[address] [facility] [place], [place] [address] Pharmacist Pharmacist 04/17/21 Rain Galaviz PA-C [address] [place] [address] [address] [place] [address] Physician Coil Winder Dermatology 04/28/21 Tavia Wyatt MD [address] [place] [address] [place] [address] Dermatology 07/14/21 Erica Farrell APRN PAID INTERNSHIP [address] [facility] [address] [place] [address] Nurse Practitioner Cardiovascular Disease 09/09/21 Rich Barrett MD 516 [facility] 9A [place], [place] [address] Physician Ophthalmology 01/21/22 Neil Kent MD 500 [place], [place] [address] Dermatology 02/24/22 Diana Desir, [facility] 3033 [place], [place] [address] Assigned MTM Pharmacist 04/07/22 Livan Sharif MD 6405 [facility] Sylvia [facility] [address] [place] [address] Cardiovascular Disease 05/14/22 Catherine Cm MD [address] [facility] [place] [address] Cardiovascular Disease 07/21/22 Valery Veronica, PAUcheC 909 [place], [place] 3250[address] Physician Coil Winder Dermatology 07/21/22 Brea Quinn APRN PAID INTERNSHIP 500 [place], [place] 99[address] Nurse Practitioner Dermatology 09/21/22 Brea Quinn APRN PAID INTERNSHIP 6401 [place] [address] Assigned Surgical Provider 10/09/22 [place] [address] [address] [place] [address] Assigned Musculoskeletal Provider 10/09/22 Alfonso Renteria MD [address] [place], [place] [address] Assigned Neuroscience Provider 04/02/23 Radha Lomeli APRN PAID INTERNSHIP [address] [place], [place] [address] Assigned Heart and Vascular Provider 05/28/23 Jelena David OD [address] [place] [address] MD Ophthalmology 06/15/23 Esha Grimm PA-C [address] [place] [phone] Assigned PCP 07/16/23 Valery Veronica PA-C [address] [place] [address] 9[address] Physician Coil Winder Dermatology 09/19/23 Rey Tay MD [address] [place] [address]76155 Gastroenterology 09/20/23 Rocky Zepeda DO [address] [place] [address] 947895 Physician Gastroenterology 09/20/23 Philip Dumont MD [address] [place] [address] 637[address] Physician Ophthalmology 09/22/23 Meredith Carrera PA-C [address] [place] [address] 928415 Assigned Gastroenterology Provider 11/01/23 Neil Kent MD [address] [address] Dermatology 11/02/23 [place] [address] [address] [place] [address] 629797 Neurological Surgery 12/26/23 documented as of this encounter
--- OUTSIDE RECORDS SUMMARY | 2024-01-07 18:06 | XMS_ITS | Encounter Summary ---
Author Organization [place] Address [address] [place] [address] Care Team Providers Care Racing Mechanic Name Role Phone Thang Diana Mayers [facility] Unavailable [phone] Rain Galaviz PA-C Unavailable Tavia Wyatt MD Unavailable Unavailable Erica Farrell APRN BUDGET SPECIALIST Unavailable Rich Barrett MD Unavailable Neil Kent MD Unavailable Diana Desir Stanislav [facility] Unavailable [phone] Livan Sharif MD Unavailable Catherine Cm MD Unavailable + Valery Veronica PA-C Unavailable [phone] Brea Quinn OPEN SHANK COVERER BUDGET SPECIALIST Unavailable [phone] Brea Quinn OPEN SHANK COVERER BUDGET SPECIALIST Unavailable Jose Francisco Johnson MD Unavailable Alfonso Renteria MD Unavailable + [phone] Esha Grimm PA-C Primary Care Provider Radha Lomeli OPEN SHANK COVERER BUDGET SPECIALIST Unavailable [phone] Jelena David OD Unavailable [phone] Esha Grimm PA-C Unavailable [phone] Valery Veronica PA-C Unavailable Rey Tay MD Unavailable Rocky Zepeda DO Unavailable Philip Dumont MD Unavailable [phone] Meredith Carrera PA-C Unavailable Neil Kent MD Unavailable Reason for Referral * Consultation (Routine: Next available opening) - Pending Review Specialty Diagnoses / Procedures Referred By Qian mayers Referred To Contact Diagnoses Chiari malformation type I (H) Dizziness Neck pain Genny Hyman PA-C [facility] [address] [facility] [address] [place] [address] Referral ID Status Reason Start Date Expiration Date V isits Requested Visits Authorized [id number] Pending Review 11/29/2023 11/28/2024 1 1 Question Answer Reason for Referral: General Neurology Scheduling Instructions: [facility] to coordinate your care as prescribed by your provider. If you don't hear from a packaging sales representative within 2 business days, please call . Additional Information: headaches, neck pain, dizziness, chiari malformation Comments Please be aware that coverage of these services is subject to the terms and limitations of your health insurance plan. Call member services at your health plan with any benefit or coverage questions. [facility] will call you to coordinate your care as prescribed by your provider. If you don't hear from a packaging sales representative within 2 business days, please call . Encounter Details Date Type Department Care Team (Late st Contact Info) Description 11/29/2023 Telephone [facility] 5775 [facility], [address] [place] [phone] Genny Hyman PA-C [facility] Epilepsy Care [address] [facility] [address] [place] [address] Social History Tobacco Use Types Packs/Day Years [...] week 03/10/2023 How often do you [facility] or gnosticist services? 1 to 4 times [...] Answer Date Recorded PHQ-2 Score 0 10/25/2023 [facility] [place] of Occupat ional Health - Occupational Stress [...] exercise at this level? 30 min 03/10/2023 [place] Depression Scale Answer Date Recorded [place] Depression Score 5 01/14/2021 Last EPDS [...] Telephone Encounter - Genny Hyman PA-C - 11/29/2023 10:58 AM CDT Referral for general neurology for chiari malformation, dizziness, and neck pain per chart review. Genny Hyman PA-C * Telephone Encounter - Anthony Woodruff - 11/29/2023 10:25 AM CDT Please update the general Neurology referral to say MS instead of seizure. Pt was unable to schedule. documented in this encounter Plan of Treatment Upcoming Encounters Date Type Department Care Team (Late st Contact Info) Description 01/09/2024 10:15 AM CDT Office Visit [facility] Neurology [address], [address] [place] [phone] Genny Hyman PA-C [facility] Epilepsy Care 5775 [facility] 255 [place], [place] [address] [place] [address] [facility] 300 [place] [address] 02/06/2024 10:00 AM CDT Office Visit [facility] [address] [phone] Neil Kent MD 500 [place], [place] [address] 03/06/2024 3:00 PM CDT Office Visit [facility] Heart [facility] [address] [facility] [address] [place] [phone] Radha Lomeli, OPEN SHANK COVERER BUDGET SPECIALIST [address]01 [facility] [address] [place] [address] 03/07/2024 9:00 AM CDT Hospital Encounter [facility] [place] 909 [facility] 5th [place] [phone] Rocky Zepeda, DO 500 [place], [place] [address] 03/07/2024 9:00 AM CDT - 03/07/2024 9:30 AM CDT Surgery M [facility] [place] 909 [facility] 5th [place] [phone] Rocky Zepeda, DO 500 [place], [place] [address] Esophagoscopy, gastroscopy, duodenoscopy (EGD), combined Scheduled Procedures Name Priority Associated Diagnoses Date/Ti al ESOPHAGOGASTRODUODENOSCOPY Eosinophilic esophagitis Esophageal dysphagia 03/07/2024 9:00 AM CDT Scheduled Referrals Name Type Priority Associated Diagnoses Orde r Schedule Adult Neurology Tap Builder Referral Referral Routine: Next available opening Chiari malformation type 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) Dizziness Neck pain Expected: 11/29/2023 (Approximate), Expires: 11/28/2024 documented as of this encounter Visit Diagnoses Diagnosis Chiari malformation type 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)- Primary Compression of brain Dizziness Dizziness and giddiness Neck pain Cervicalgia Eosinophilic esophagitis Esophageal dysphagia Dysphagia, pharyngoesophageal phase documented in this encounter Additional Health Concerns Assessment Noted Time PHQ-9 Depression Total Score: 4 06/20/20 23 8: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 documented as of this encounter Care Teams Racing Mechanic Relationship Specialty Start Date End Date Esha Grimm PA-C [address] [place] [address] PCP - General Family Medicine 05/04/23 Diana Desir, [facility] 3033 [place] [address] Pharmacist Pharmacist 04/17/21 Rain Galaviz PA-C [address] [place] [address] [address] [place] [address] Physician Supervisor Multifocal Lens Dermatology 04/28/21 Tavia Wyatt MD [address] [place] [address] DR RA[address] Lara [facility] [address] Dermatology 07/14/21 Erica Farrell APRN BUDGET SPECIALIST [address] [place] [address] Nurse Practitioner Cardiovascular Disease 09/09/21 Rich Barrett MD [address] [place] [address] 785445 Physician Ophthalmology 01/21/22 Neil Kent MD [address] [place] [address] Dermatology 02/24/22 Diana Desir, [facility] 3033 [place] [address] Assigned MTM Pharmacist 04/07/22 Livan Sharif MD [address] [place] [address] Cardiovascular Disease 05/14/22 Catherine Cm MD [address] [place] [address] Cardiovascular Disease 07/21/22 Valery Veronica PA-C 909 [place], [place] [address] Physician Supervisor Multifocal Lens Dermatology 07/21/22 Brea Quinn APRN BUDGET SPECIALIST 500 [place], [place] 4[address] Nurse Practitioner Dermatology 09/21/22 Brea Quinn APRN BUDGET SPECIALIST 6401 [place], [place] 560942 Assigned Surgical Provider 10/09/22 [place] [address] [facility] 300 [place], [place] 48[address] Assigned Musculoskeletal Provider 10/09/22 Alfonso Renteria MD 5775 [facility] 200 [place], [place] [address] Assigned Neuroscience Provider 04/02/23 Radha Lomeli APRN BUDGET SPECIALIST 6405 [facility] [address] [place], [place] [address] Assigned Heart and Vascular Provider 05/28/23 Jelena David OD [address] [facility] [place] [place] [address] Ophthalmology 06/15/23 Esha Grimm PA-C [address] [place] [phone] Assigned PCP 07/16/23 Valery Veronica PA-C [address] [place] [address] Physician Supervisor Multifocal Lens Dermatology 09/19/23 Rey Tay MD [address] [place] [address] Gastroenterology 09/20/23 Rocky Zepeda DO [address] [place] [address] 224255 Physician Gastroenterology 09/20/23 Philip Dumont MD [address] [place] [address] Physician Ophthalmology 09/22/23 Meredith Carrera PA-C [address] [place] [address] Assigned Gastroenterology Provider 11/01/23 Neil Kent MD [address] [address] Dermatology 11/02/23 documented as of this encounter
--- OUTSIDE RECORDS SUMMARY | 2024-01-07 18:06 | XMS_ITS | Encounter Summary ---
Author Organization [place] Address [address] [place] [address] Care Team Providers Care Washing Machine Operator Name Role Phone Thang Diana Mayers [facility] Unavailable [phone] Rain Galaviz PA-C Unavailable Tavia Wyatt MD Unavailable Unavailable Erica Farrell APRN IRON CASTER Unavailable Rich Barrett MD Unavailable Neil Kent MD Unavailable Diana Desir Stanislav [facility] Unavailable [phone] Livan Sharif MD Unavailable Catherine Cm MD Unavailable + Valery Veronica PA-C Unavailable [phone] Brea Quinn NURSE'S ASSISTANT IRON CASTER Unavailable Brea Quinn NURSE'S ASSISTANT IRON CASTER Unavailable Jose Francisco Johnson MD Unavailable Alfonso Renteria MD Unavailable + [phone] Esha Grimm PA-C Primary Care Provider Radha Lomeli NURSE'S ASSISTANT IRON CASTER Unavailable [phone] Jelena David OD Unavailable Esha Grimm Adam PA-C Unavailable [phone] Valery Veronica PA-C Unavailable Rey Tay MD Unavailable Rocky Zepeda Unavailable Philip Dumont MD Unavailable Meredith Carrera PA-C Unavailable Neil Kent MD Unavailable Reason for Referral * Diagnostic Imaging Ultrasound (Routine) - Pending Review Specialty Diagnoses / Procedures Referred By Contac t Referred To Contact Radiology. Diagnoses Epigastric pain Procedures US Abdomen Limited Lauren Claudio PA-C [address] [place] [address] Referral ID Status Reason Start Date Expiration Date V isits Requested Visits Authorized [id number] Pending Review 10/27/2023 10/26/2024 1 1 Reason for Visit * Diagnostic Imaging Ultrasound (Routine) - Pending Review Specialty Diagnoses / Procedures Referred By Qian mayers Referred To Contact Radiology. Diagnoses Epigastric pain Procedures US Abdomen Limited Lauren Claudio PA-C [address] [place] [address] Referral ID Status Reason Start Date Expiration Date V isits Requested Visits Authorized [id number] Pending Review 10/27/2023 10/26/2024 1 1 Encounter Details Date Type Department Care Team (Latest Contact Info) Description 11/24/2023 8:20 AM CDT - 11/24/2023 11:59 PM CDT Hospital Encounter [facility] Imaging [address] [facility] [address] [place] [address] Lauren Claudio PA-C [address] [place] [address] Epigastric pain Discharge Disposition: Home or Self Care Social [...] How often do you attend chur or quaker services? 1 to 4 times [...] Answer Date Recorded PHQ-2 Score 0 10/25/2023 [facility] Occupat ional Health [...] exercise at this level? 30 min 03/10/2023 Elizabeth Depression Scale Answer Date Recorded Elizabeth Depression Score 5 01/14/2021 Last EPDS Self [...] in an abandoned building, in an overnight halfway, or couch-surfing.) Yes 07/14/2023 Are you worried [...] Description 01/09/2024 10:15 AM CDT Office Visit [facility] Neurology [facility] [address] [facility], [address] [place] [phone] Genny Hyman PA-C [facility] Epilepsy [facility] [address] [facility] 255 [place], [place] 8767[address] [place] [address] [address] [place] [address] 02/06/2024 10:00 AM CDT Office Visit [facility] [address] [phone] Neil Kent MD 500 [place], [place] [address] 03/06/2024 3:00 PM CDT Office Visit [facility] Heart [facility] [address] [facility] [address] [place] [address] Radha Lomeli, ARLENE IRON CASTER [address] [facility] [address] [place], [place] [address] 03/07/2024 9:00 AM CDT Hospital Encounter [facility] 909 [facility] 5th [place] [phone] Rocky Zepeda DO 500 [place], [place] [address]65 03/07/2024 9:00 AM CDT - 03/07/2024 9:30 AM CDT Surgery [facility] [address] [place] [address] 5th [place] [phone] Rocky Zepeda DO 500 [place] [address] Esophagoscopy, gastroscopy, duodenoscopy (EGD), combined Scheduled Procedures Name Priority Associated Diagnoses Date/Ti mt ESOPHAGOGASTRODUODENOSCOPY Eosinophilic esophagitis Esophageal dysphagia 03/07/2024 9:00 AM CDT documented as of this encounter Procedures Procedure Name Priority Date/Time Associated Diagnosis Comments US ABDOMEN LIMITED Routine 11/24/2023 9: 30 AM CDT Epigastric pain documented in this encounter Results * US Abdomen Limited (11/24/2023 9:30 AM CDT) Anatomical Region Laterality Modality Abdomen/Pelvis Ultrasound Impressions 11/24/2023 4:03 PM CDT IMPRESSION: ??Fatty liver. Hepatomegaly. No gallstones identified. [facility] ID: ??[id number] Narrative 11/24/2023 4:03 PM CDT ULTRASOUND ABDOMEN [...] gallstones identified. [facility] ID: [id number] Lauren Claudio PA-C [facility] US ORDERABLES documented in this encounter Visit Diagnoses Diagnosis Epigastric pain Abdominal pain, epigastric Eosinophilic esophagitis Esophageal dysphagia Dysphagia, pharyngoesophageal phase documented in this encounter Additional Health Concerns Assessment Noted Time PHQ-9 Depression Total Score: 4 06/20/20 23 8:40 AM FRONT DESK REPRESENTATIVE documented as of this encounter Care Teams Washing Machine Operator Relationship Specialty Start Date End Date Esha Grimm PA-C [address] [place] [address] PCP - General Family Medicine 05/04/23 Diana Desir, [facility] [address] [place], [place] 38[address] Pharmacist Pharmacist 04/17/21 Rain Galaviz PA-C [address] [place] [address] [address] [facility] [place] [address] Physician Cardiac Exercise Physiologist Dermatology 04/28/21 Tavia Wyatt MD [address] [place] [address] [address] [facility] [place] [address] Dermatology 07/14/21 Erica Farrell APRN IRON CASTER [address] [facility] [address] [place], [place] [address] Nurse Practitioner Cardiovascular Disease 09/09/21 Rich Barrett MD [address] [facility] 9[address] [place], [place] 65[address] Physician Ophthalmology 01/21/22 Neil Kent MD 500 [place] [address] Dermatology 02/24/22 Diana Desir, [facility] 3033 [place] [address] Assigned [place] Pharmacist 04/07/22 Livan Sharif MD [address] [facility] [facility] [address] [address] [facility] [address] [place], [place] 457[address] Cardiovascular Disease 05/14/22 Catherine Cm MD [address] [place] [address] Cardiovascular Disease 07/21/22 Valery Veronica, PA-C 909 [place], [place] 6[address] Physician Cardiac Exercise Physiologist Dermatology 07/21/22 Brea Quinn APRN IRON CASTER 500 [place] [address] Nurse Practitioner Dermatology 09/21/22 Brea Quinn APRN IRON CASTER 6401 [place] [address] Assigned Surgical Provider 10/09/22 [place] [address] [address] Assigned Musculoskeletal Provider 10/09/22 Alfonso Renteria MD [address] [facility] [address] [place] [address] Assigned Neuroscience Provider 04/02/23 Radha Lomeli APRN IRON CASTER [address] [place] [address] Assigned Heart and Vascular Provider 05/28/23 Jelena David OD [address] [facility] [place] [address] MD Ophthalmology 06/15/23 Esha Grimm PA-C [address] [place] [phone] Assigned PCP 07/16/23 Valery Veronica PA-C [address] [place] [address] Physician Cardiac Exercise Physiologist Dermatology 09/19/23 Rey Tay MD [address] [place] [address] 621745 Gastroenterology 09/20/23 Rocky Zepeda DO [address] [place] [address] 944615 Physician Gastroenterology 09/20/23 Philip Dumont MD [address] [place] [address] 617985 Physician Ophthalmology 09/22/23 Meredith Carrera PA-C [address] [place] [address] 594945 Assigned Gastroenterology Provider 11/01/23 Neil Kent MD [address] [place] [address] Dermatology 11/02/23 documented as of this encounter
--- OUTSIDE RECORDS SUMMARY | 2024-01-07 18:06 | XMS_ITS | Encounter Summary ---
Author Organization [place] Address [address] [place] [address] Care Team Providers Care Flat Grinder Operator Name Role Phone Thang Diana [place] [facility] Unavailable Rain Galaviz PA-C Unavailable [phone] Tavia Wyatt MD Unavailable Unavailable Erica Farrell APRN DRY CLEANING ATTENDANT Unavailable Rich Barrett MD Unavailable Neil Kent MD Unavailable Diana Desir Stanislav [facility] Unavailable [phone] Livan Sharif MD Unavailable Catherine Cm MD Unavailable + Valery Veronica PA-C Unavailable [phone] Brea Quinn HIDE INSPECTOR DRY CLEANING ATTENDANT Unavailable Brea Quinn HIDE INSPECTOR DRY CLEANING ATTENDANT Unavailable [phone] Jose Francisco Johnson MD Unavailable Alfonso Renteria MD Unavailable + [phone] Esha Grimm PA-C Primary Care Provider [phone] Radha Lomeli HIDE INSPECTOR DRY CLEANING ATTENDANT Unavailable Jelena David OD Unavailable Esha Grimm PA-C Unavailable [phone] Valery VeronicaC Unavailable Rey Tay MD Unavailable Rocky Zepeda Unavailable Philip Dumont MD Unavailable [phone] Meredith Carrera-C Unavailable Neil Kent MD Unavailable Reason for Visit * Reason Onset Date Comments Refill Request 11/22/2023 metoprolol Encounter Details Date Type Department Care Team (Late st Contact Info) Description 11/22/2023 Refill [facility] Heart [facility] [address] [facility] [address] [place] [address] Radha Lomeli, HIDE INSPECTOR DRY CLEANING ATTENDANT [address] [place], [place] [address] Refill Request (metoprolol) Social History Tobacco Use Types Packs/Day Years [...] Answer Date Recorded PHQ-2 Score 0 10/25/2023 [facility] of Occupat ional [...] encounter Miscellaneous Notes * Telephone Encounter - Libra Fish, RN - 11/22/2023 4:11 PM CDT [facility] Cardiology Refill Guideline reviewed. Medication meets criteria for refill. documented in this encounter Plan of Treatment Upcoming Encounters Date Type Department Care Team (Late st Contact Info) Description 01/09/2024 10:15 AM CDT Office Visit [facility] Neurology [address], [address] [place] [address] Genny Hyman PA-C [facility] Epilepsy Care 57[address] [facility] [address] 255 [place], [place] [phone] [place] [address] [place], [place] [address] 02/06/2024 10:00 AM CDT Office Visit [place] [address] [place] [address] Neil Kent MD 500 [place] [address] 03/06/2024 3:00 PM CDT Office Visit [facility] [address] [facility] [address] [place] [phone] Radha Lomeli E, HIDE INSPECTOR DRY CLEANING ATTENDANT [address] [facility] [address] [place] [address] 03/07/2024 9:00 AM CDT Hospital Encounter [facility] [address] [place] [phone] Rocky Zepeda DO 500 [place] [address] 03/07/2024 9:00 AM CDT - 03/07/2024 9:30 AM CDT Surgery [facility] [address] [place] [phone] Rocky Zepeda DO 500 [place] [address] Esophagoscopy, gastroscopy, duodenoscopy (EGD), combined Scheduled Procedures Name Priority Associated Diagnoses Date/Ti ma ESOPHAGOGASTRODUODENOSCOPY Eosinophilic esophagitis Esophageal dysphagia 03/07/2024 9:00 AM CDT documented as of this encounter Visit Diagnoses Diagnosis Palpitations Eosinophilic esophagitis Esophageal dysphagia Dysphagia, pharyngoesophageal phase documented in this encounter Additional Health Concerns Assessment Noted Time PHQ-9 Depression Total Score: 4 06/20/20 23 8:40 AM COMPUTER 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 documented as of this encounter Care Teams Flat Grinder Operator Relationship Specialty Start Date End Date Esha Grimm PA-C [address] [place] [phone] PCP - General Family Medicine 05/04/23 Diana Desir, [facility] [address] [place] [address] Pharmacist Pharmacist 04/17/21 Rain Galaviz PA-C [address] [place] [address] [address] [place] [address] Physician Reamer Hand Dermatology 04/28/21 Tavia Wyatt MD [address] [place] [address] [place] [address] Dermatology 07/14/21 Erica Farrell APRN DRY CLEANING ATTENDANT [address] [place] [address] Nurse Practitioner Cardiovascular Disease 09/09/21 Rich Barrett MD [address] [place] [address]245 Physician Ophthalmology 01/21/22 Neil Kent MD [address] [place] [address] 075315 Dermatology 02/24/22 Diana Desir, [facility] [address] [place] [address] Assigned MTM Pharmacist 04/07/22 Livan Sharif MD [address] [place] 673455 Cardiovascular Disease 05/14/22 Catherine Cm MD [address] [facility] [address] [place] [address] Cardiovascular Disease 07/21/22 Valery Veronica PA-C 909 [place], [place] 8[address] Physician Reamer Hand Dermatology 07/21/22 Brea Quinn APRN DRY CLEANING ATTENDANT 500 [place], [place] 1284[address] Nurse Practitioner Dermatology 09/21/22 Brea Quinn APRN DRY CLEANING ATTENDANT 6401 [facility] [place] [address] Assigned Surgical Provider 10/09/22 [place] [address] [place] [address] Assigned Musculoskeletal Provider 10/09/22 Alfonso Renteria MD 5775 [facility] 200 [place], [place] 88[address] Assigned Neuroscience Provider 04/02/23 Radha Lomeli APRN DRY CLEANING ATTENDANT [address] [facility] [address] [place] [address] Assigned Heart and Vascular Provider 05/28/23 Jelena David OD [address] [place] [address] Ophthalmology 06/15/23 Esha Grimm PA-C [address] [place] [address] Assigned PCP 07/16/23 Valery Veronica PA-C [address] [place] [address] Physician Reamer Hand Dermatology 09/19/23 Rey Tay MD [address] [place] [address] MD Gastroenterology 09/20/23 Rocky Zepeda DO [address] [place] [address] Physician Gastroenterology 09/20/23 Philip Dumont MD [address] [place] [address] Physician Ophthalmology 09/22/23 Meredith Carrera PA-C [address] [place] [address] Assigned Gastroenterology Provider 11/01/23 Neil Kent MD [address] [address] MD Dermatology 11/02/23 documented as of this encounter
--- OUTSIDE RECORDS SUMMARY | 2024-01-07 18:06 | XMS_ITS | Encounter Summary ---
Author Organization [place] Address [address] [place] [address] Care Team Providers Care Buzzsaw Operator Helper Name Role Phone Thang Diana Colorado [facility] Unavailable Rain Galaviz PA-C Unavailable [phone] Tavia Wyatt MD Unavailable Unavailable Erica Farrell APRN LOCOMOTIVE OBSERVER Unavailable Rich Barrett MD Unavailable Neil Kent MD Unavailable Diana Desir Stanislav [facility] Unavailable [phone] Livan Sharif MD Unavailable Catherine Cm MD Unavailable + Valery Veronica PA-C Unavailable [phone] Brea Quinn TRAFFIC LAW ATTORNEY LOCOMOTIVE OBSERVER Unavailable Brea Quinn TRAFFIC LAW ATTORNEY LOCOMOTIVE OBSERVER Unavailable Jose Francisco Johnson MD Unavailable Alfonso Renteria MD Unavailable + [phone] Esha Grimm PA-C Primary Care Provider [phone] Radha Lomeli TRAFFIC LAW ATTORNEY LOCOMOTIVE OBSERVER Unavailable [phone] Jelena David OD Unavailable Esha Grimm PA-C Unavailable Valery Veronica-C Unavailable [phone] Rey Tay MD Unavailable Rocky Zepeda DO Unavailable Philip Dumont MD Unavailable [phone] Meredith Carrera PA-C Unavailable [phone] Neil Kent MD Unavailable Juan Pablo Emmanuel MD Unavailable [phone] Encounter Details Date Type Department Care Team (Late st Contact Info) Description 11/21/2023 MyC Medical Advice [facility] Gastroenterology Clinic [address]th [place] [address] Sofia Alcantar Social History Tobacco [...] Answer Date Recorded PHQ-2 Score 0 10/25/2023 [facility] - [facility]ational Stress Questionnaire Answer Date [...] at this level? 30 min 03/10/2023 [place] Depression Scale Answer Date Recorded [place] Depression Score 5 01/14/2021 Last EPDS Self [...] Description 01/09/2024 10:15 AM CDT Office Visit [facility] Neurology [facility] [address] [facility], [address] [place] [phone] Genny Hyman PA-C [facility] Epilepsy Care 5775 [facility] 255 [place], [place] [phone] [place] [address] [address] [place], [place] [address] 02/06/2024 10:00 AM CDT Office Visit [facility] [address] [phone] Neil Kent MD 500 [place], [place] [address] 03/06/2024 3:00 PM CDT Office Visit [facility] Heart [facility] [address] [facility] [address] [place] [phone] Radha Lomeli, TRAFFIC LAW ATTORNEY LOCOMOTIVE OBSERVER [address] [facility] [address] [place] [address] 03/07/2024 9:00 AM CDT Hospital Encounter [facility] [place] 909 [facility] 5th [place] [phone] Rocky Zepeda, 500 [place], [place] [address] 03/07/2024 9:00 AM CDT - 03/07/2024 9:30 AM CDT Surgery [facility] [place] 909 [facility] 5th [place] [phone] Rocky Zepeda DO 500 [place] [address] Esophagoscopy, gastroscopy, duodenoscopy (EGD), combined Scheduled Procedures Name Priority Associated Diagnoses Date/Ti md ESOPHAGOGASTRODUODENOSCOPY Eosinophilic esophagitis Esophageal dysphagia 03/07/2024 9:00 AM CDT documented as of this encounter Visit Diagnoses Not on filedocumented in this encounter Additional Health Concerns Infection Onset Date Last Indicated Resolved Time Rule Out COVID-19 12/26/2023 12/26/2023 12/26/2023 9:50 AM CDT Assessment Noted Time PHQ-9 Depression Total Score: 4 06/20/20 23 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 documented as of this encounter Care Teams Buzzsaw Operator Helper Relationship Specialty Start Date End Date Esha Grimm PA-C [address] [place] [phone] PCP - General Family Medicine 05/04/23 Diana Desir [facility] 3033 [place] [address] Pharmacist Pharmacist 04/17/21 Rain Galaviz PA-C [address] [place] [address] [address] [place] [address] Physician Bulldozer Press Operator Dermatology 04/28/21 Tavia Wyatt MD [address] [place] [address] [place] [address] Dermatology 07/14/21 Erica Farrell APRN LOCOMOTIVE OBSERVER [address] [place] [address] Nurse Practitioner Cardiovascular Disease 09/09/21 Rich Barrett MD [address] [place] [address] 728165 Physician Ophthalmology 01/21/22 Neil Kent MD [address] [place] [address] 293875 Dermatology 02/24/22 Diana Desir, [facility] [address] [place] [address]776 Assigned [facility] Pharmacist 04/07/22 Livan Sharif MD [address], [facility] [place] [address] Cardiovascular Disease 05/14/22 Catherine Cm MD [address] [facility]00 [place] [address] Cardiovascular Disease 07/21/22 Valery Veronica, PA-C [address] [place] [address] 142965 Physician Bulldozer Press Operator Dermatology 07/21/22 Brea Quinn APRN LOCOMOTIVE OBSERVER 500 [place], [place] [address] Nurse Practitioner Dermatology 09/21/22 Brea Quinn APRN LOCOMOTIVE OBSERVER 6401 [place], [place] 107462 Assigned Surgical Provider 10/09/22 [place] [address] [address] Assigned Musculoskeletal Provider 10/09/22 Alfonso Renteria MD 5775 [facility] 200 [place], [place] 76[address] Assigned Neuroscience Provider 04/02/23 Radha Lomeli APRN LOCOMOTIVE OBSERVER [address] [place] [phone] [place], [place] 28[address]35 Assigned Heart and Vascular Provider 05/28/23 Jelena David OD [address] [facility] [address] [place] [id number] Ophthalmology 06/15/23 Esha Grimm PA-C [address] [place] [phone] Assigned PCP 07/16/23 Valery Veronica PA-C 909 [place], [place] 1522[address] Physician Bulldozer Press Operator Dermatology 09/19/23 Rey Tay MD 909 [place] [address] MD Gastroenterology 09/20/23 Rocky Zepeda DO [address] [place] [address] Physician Gastroenterology 09/20/23 Philip Dumont MD [address] [place] [address] Physician Ophthalmology 09/22/23 Meredith Carrera PA-C [address] [place] [address] Assigned Gastroenterology Provider 11/01/23 Neil Kent MD [address] [address] Dermatology 11/02/23 [place] [address] [place] [address] Neurological Surgery 12/26/23 documented as of this encounter
--- OUTSIDE RECORDS SUMMARY | 2024-01-07 18:06 | XMS_ITS | Encounter Summary ---
Author Organization [place] Address [address] [place] [address] Care Team Providers Care Cco & President Name Role Phone Thang Diana [place] [facility] Unavailable Rain Galaviz PA-C Unavailable [phone] Tavia Wyatt MD Unavailable Unavailable Erica Farrell APRN SECURITY ARCHITECT Unavailable Rich Barrett MD Unavailable Neil Kent MD Unavailable Diana Desir Stanislav [facility] Unavailable [phone] Livan Sharif MD Unavailable Catherine Cm MD Unavailable + Valery Veronica PA-C Unavailable [phone] Brea Quinn BMW SERVICE TECHNICIAN SECURITY ARCHITECT Unavailable [phone] Brea Quinn BMW SERVICE TECHNICIAN SECURITY ARCHITECT Unavailable Jose Francisco Johnson MD Unavailable Alfonso Renteria MD Unavailable + [phone] Esha Grimm PA-C Primary Care Provider Radha Lomeli BMW SERVICE TECHNICIAN SECURITY ARCHITECT Unavailable [phone] Jelena David OD Unavailable [phone] Alfa Eshalincoln DOWC Unavailable [phone] Valery VeronicaC Unavailable [phone] Rey Tay MD Unavailable Rocky Zepeda Unavailable Philip Dumont MD Unavailable [phone] Meredith CarreraC Unavailable [phone] Neil Kent MD Unavailable Encounter Details Date Type Department Care Team (Latest Contact Info) Description 11/24/2023 Travel Social History Tobacco Use Types Packs/Day [...] Answer Date Recorded PHQ-2 Score 0 10/25/2023 [facility] of Occupat ional [facility] [...] exercise at this level? 30 min 03/10/2023 [place] Depression Scale Answer Date Recorded [place] Depression Score 5 01/14/2021 Last EPDS Self [...] Description 01/09/2024 10:15 AM CDT Office Visit [facility] Neurology [facility] [address] [facility], [address] [place] [phone]enny Hyman PA-C [facility] Epilepsy [facility] [address] [facility] 255 [place], [place] [address] [place] [address] [facility] 300 [place], [place] [address] 02/06/2024 10:00 AM CDT Office Visit [facility] [address] [phone] Neil Kent MD 500 [place], [place] [address] 03/06/2024 3:00 PM CDT Office Visit [facility] Heart [facility] [address] [facility] [address] [place] [address] Radha Lomeli APRN SECURITY ARCHITECT [address] [place], [place] [address] 03/07/2024 9:00 AM CDT Hospital Encounter [facility] 9[address] [facility] 5th [place] [phone] Rocky Zepeda DO 500 [place], [place] 9[address]45 03/07/2024 9:00 AM CDT - 03/07/2024 9:30 AM CDT [facility] 9[address] [facility] 5th [place] [phone] Rocky Zepeda DO 500 [place] [address] Esophagoscopy, gastroscopy, duodenoscopy (EGD), combined Scheduled Procedures Name Priority Associated Diagnoses Date/Ti ms ESOPHAGOGASTRODUODENOSCOPY Eosinophilic esophagitis Esophageal dysphagia 03/07/2024 9:00 AM CDT documented as of this encounter Visit Diagnoses Not on filedocumented in this encounter Additional Health Concerns Assessment Noted Time PHQ-9 Depression Total Score: 4 06/20/20 23 8:40 AM HUB LEAD documented as of this encounter Care Teams Cco & President Relationship Specialty Start Date End Date Esha Grimm PA-C [address] [place] [address] PCP - General Family Medicine 05/04/23 Diana Desir, [facility] [address] [place] [address] Pharmacist Pharmacist 04/17/21 Rain Galaviz PA-C [address] [place] [address] ENMA KNUTSON [address] Physician Director Manufacturing Engineering Dermatology 04/28/21 Tavia Wyatt MD [address] [place] [address] ENMA KNUTSON [address] Dermatology 07/14/21 Erica Farrell APRN SECURITY ARCHITECT [address] [place], [place] [address] Nurse Practitioner Cardiovascular Disease 09/09/21 Rich Barrett MD [address] [facility] [address]A [place] [address] Physician Ophthalmology 01/21/22 Neil Kent MD 500 [place], [place] [address]185 Dermatology 02/24/22 Diana Desir, [facility] 3033 [place], [place] 683936 Assigned MTM Pharmacist 04/07/22 Livan Sharif MD [address] [place], [place] [address] Cardiovascular Disease 05/14/22 Catherine Cm MD [address] [place], [place] 44[address] Cardiovascular Disease 07/21/22 Valery Veronica, PA-C [address] [place], [place] 457[address] Physician Director Manufacturing Engineering Dermatology 07/21/22 Brea Quinn APRN SECURITY ARCHITECT 500 [place], [place] 5[address]35 Nurse Practitioner Dermatology 09/21/22 Brea Quinn APRN SECURITY ARCHITECT 6401 [facility] [place] [address] Assigned Surgical Provider 10/09/22 [place] [address] [address] [facility] 300 [place] [address] Assigned Musculoskeletal Provider 10/09/22 Alfonso Renteria MD [address] [facility] 200 [place], [place] 439806 Assigned Neuroscience Provider 04/02/23 Radha Lomeli APRN SECURITY ARCHITECT [address] [facility] [address] [place] [address] Assigned Heart and Vascular Provider 05/28/23 Jelena David OD [address] [place] [address] Ophthalmology 06/15/23 Esha Grimm PA-C [address] [place] [address] Assigned PCP 07/16/23 Valery Veronica PA-C [address] [place] [address] 356195 Physician Director Manufacturing Engineering Dermatology 09/19/23 Rey Tay MD [address] [place] [address] 499095 Gastroenterology 09/20/23 Rocky Zepeda DO [address] [place] [address] 344905 Physician Gastroenterology 09/20/23 Philip Dumont MD 6 [place], [place] [address] Physician Ophthalmology 09/22/23 Meredith Carrera PA-C [address] [place] [address] Assigned Gastroenterology Provider 11/01/23 Neil Kent MD [address] [place] [address] 840490 Dermatology 11/02/23 documented as of this encounter
--- OUTSIDE RECORDS SUMMARY | 2024-01-07 18:07 | XMS_ITS | Encounter Summary ---
Author Organization [place] Address [address] [place] [address] Care Team Providers Care Night Worker Name Role Phone Thang Diana [place] [facility] Unavailable Rain Galaviz PA-C Unavailable Tavia Wyatt MD Unavailable Unavailable Erica Farrell APRN SAMPLE TAILOR Unavailable Rich Barrett MD Unavailable Neil Kent MD Unavailable Diana Desir Stanislav [facility] Unavailable [phone] Livan Sharif MD Unavailable Catherine Cm MD Unavailable + Valery Veronica PA-C Unavailable [phone] Brea Quinn MENTAL HEALTH NURSE PRACTITIONER SAMPLE TAILOR Unavailable [phone] Brea Quinn MENTAL HEALTH NURSE PRACTITIONER SAMPLE TAILOR Unavailable Jose Francisco Johnson MD Unavailable Alfonso Renteria MD Unavailable + [phone] Esha Grimm PA-C Primary Care Provider Radha Lomeli MENTAL HEALTH NURSE PRACTITIONER SAMPLE TAILOR Unavailable [phone] Jelena David OD Unavailable [phone] Alfa Eshalincoln DOWC Unavailable Valery VeronicaC Unavailable [phone] Rey Tay MD Unavailable Rocky Zepeda Unavailable Philip Dumont MD Unavailable [phone] Meredith CarreraC Unavailable [phone] Neil Kent MD Unavailable Encounter Details Date Type Department Care Team (Latest Contact Info) Description 11/14/2023 Travel Social History Tobacco Use Types Packs/Day [...] Answer Date Recorded PHQ-2 Score 0 10/25/2023 [facility] of Occupat ional [facility] - Occupational Stress Questionnaire Answer [...] exercise at this level? 30 min 03/10/2023 [place] Depression Scale Answer Date Recorded [place] Depression Score 5 01/14/2021 Last EPDS Self [...] Description 01/09/2024 10:15 AM CDT Office Visit [facility] Neurology [facility] [address] [facility], [address] [place] [phone] Genny Hyman PA-C [facility] Epilepsy [facility] 5775 [facility] 255 [place], [place] 6[address] [place] [address] [facility] 300 [place], [place] [address] 02/06/2024 10:00 AM CDT Office Visit [facility] [address] [phone] Neil Kent MD 500 [place], [place] [address] 03/06/2024 3:00 PM CDT Office Visit [facility] Heart [facility] [address] [facility] [address] [place] [address] Radha Lomeli APRN SAMPLE TAILOR [address] [place], [place] [address] 03/07/2024 9:00 AM CDT Hospital Encounter [facility] [address] [facility] 5th [place] [phone] Rocky Zepeda DO 500 [place], [place] [address]855 03/07/2024 9:00 AM CDT - 03/07/2024 9:30 AM CDT [facility] [address] [facility] 5th [place] [phone] Rocky Zepeda DO 500 [place] [address] Esophagoscopy, gastroscopy, duodenoscopy (EGD), combined Scheduled Procedures Name Priority Associated Diagnoses Date/Ti id ESOPHAGOGASTRODUODENOSCOPY Eosinophilic esophagitis Esophageal dysphagia 03/07/2024 9:00 AM CDT documented as of this encounter Visit Diagnoses Not on filedocumented in this encounter Additional Health Concerns Assessment Noted Time PHQ-9 Depression Total Score: 4 06/20/20 23 8:40 AM MYSQL DATABASE ADMINISTRATOR documented as of this encounter Care Teams Night Worker Relationship Specialty Start Date End Date Esha Grimm PA-C [address] [place] [address] PCP - General Family Medicine 05/04/23 Diana Desir, [facility] [address] [place] [address] Pharmacist Pharmacist 04/17/21 Rain Galaviz PA-C [address] [place] [address] ENMA KNUTSON [address] Physician Color Straining Bag Washer Dermatology 04/28/21 Tavia Wyatt MD [address] [place] [address] ENMA KNUTSON [address] Dermatology 07/14/21 Erica Farrell APRN SAMPLE TAILOR [address] [place], [place] [address] Nurse Practitioner Cardiovascular Disease 09/09/21 Rich Barrett MD 516 [facility] 9A [place] [address] Physician Ophthalmology 01/21/22 Neil Kent MD 500 [place], [place] 8[address]85 Dermatology 02/24/22 Diana Desir, [facility] 3033 [place], [place] [address]36[address] Assigned MTM Pharmacist 04/07/22 Livan Sharif MD [address] [place], [place] [address] Cardiovascular Disease 05/14/22 Catherine Cm MD [address] [place], [place] 86[address] Cardiovascular Disease 07/21/22 Valery Veronica, PA-C 909 [place], [place] [address]135 Physician Color Straining Bag Washer Dermatology 07/21/22 Brea Quinn APRN SAMPLE TAILOR 500 [place], [place] 9[address]15 Nurse Practitioner Dermatology 09/21/22 Brea Quinn APRN SAMPLE TAILOR 6401 [facility] [place] [address] Assigned Surgical Provider 10/09/22 [place] [address] [facility] 300 [place] [address] Assigned Musculoskeletal Provider 10/09/22 Alfonso Renteria MD [address] [facility] 200 [place], [place] [address] Assigned Neuroscience Provider 04/02/23 Radha Lomeli APRN SAMPLE TAILOR [address] [facility] [address] [place] [address] Assigned Heart and Vascular Provider 05/28/23 Jelena David OD [address] [place] [address] Ophthalmology 06/15/23 Esha Grimm PA-C [address] [place] [address] Assigned PCP 07/16/23 Valery Veronica PA-C [address] [place] [address] Physician Color Straining Bag Washer Dermatology 09/19/23 Rey Tay MD [address] [place] [address] 649025 Gastroenterology 09/20/23 Rocky Zepeda DO [address] [place] [address] 998395 Physician Gastroenterology 09/20/23 Philip Dumont MD 6 [place], [place] [address]455 Physician Ophthalmology 09/22/23 Mereidth Carrera PA-C [address] [place] [address] Assigned Gastroenterology Provider 11/01/23 Neli Kent MD [address] [place] [address] 676580 Dermatology 11/02/23 documented as of this encounter
--- OUTSIDE RECORDS SUMMARY | 2024-01-07 18:07 | XMS_ITS | Encounter Summary ---
Author Organization [place] Address [address] [place] [address] Care Team Providers Care Supervisor Filter Assembly Name Role Phone Thang Diana [place] [facility] Unavailable Rain Galaviz PA-C Unavailable Tavia Wyatt MD Unavailable Unavailable Erica Farrell APRN FINANCIAL HEALTH COUNSELOR Unavailable Rich Barertt MD Unavailable Neil Kent MD Unavailable Diana Desir Stanislav [facility] Unavailable [phone] Livan Sharif MD Unavailable Catherine Cm MD Unavailable + Valery Veronica PA-C Unavailable [phone] Brea Qunin MORTGAGE LOAN OFFICER ORIGINATOR FINANCIAL HEALTH COUNSELOR Unavailable Brea Quinn MORTGAGE LOAN OFFICER ORIGINATOR FINANCIAL HEALTH COUNSELOR Unavailable Jose Francisco Johnson MD Unavailable Alfonso Renteria MD Unavailable + [phone] Esha Grimm PA-C Primary Care Provider [phone] Radha Lomeli MORTGAGE LOAN OFFICER ORIGINATOR FINANCIAL HEALTH COUNSELOR Unavailable [phone] FrankieJelena OD Unavailable Pao Joseph RN Unavailable Unavailable AlfaWicholincoln Medina PA-C Unavailable [phone] Valery Veronica PA-C Unavailable [phone] Rey Tay MD Unavailable Duane Rockyanne STEVENS Unavailable Philip Dumont MD Unavailable [phone] Reason for Visit * Reason Onset Date Comments Abnormal Labs 10/30/2023 Encounter Details Date Type Department Care Team (Late st Contact Info) Description 10/30/2023 Telephone [facility] Nurse Advisors 4575 [place] [address] Tiffanie Washburn RN Abnormal Labs Social History Tobacco Use Types Packs/Day Years [...] [facility] - Occupational Stress Questionnaire Answer Date [...] exercise at this level? 30 min 03/10/2023 [place] Depression Scale Answer Date Recorded [place] Depression Score 5 01/14/2021 Last EPDS Self [...] in an abandoned building, in an overnight usp, or couch-surfing.) Yes 07/14/2023 Are you worried [...] encounter Miscellaneous Notes * Telephone Encounter - Tiffanie Washburn RN - 10/30/2023 3:07 PM CDT Provider Recommendation Follow Up: Reached patient/caregiver. Informed of provider's recommendations. Patient verbalized understandingand agrees with the plan. * Telephone Encounter - Tiffanie Washburn RN - 10/30/2023 2:28 PM CDT Nurse Triage SBAR Is this a 2nd Level Triage? NO Situation: The patient is calling and is inquiring about her elevated B12 results She reports she has taken her vitamins for the day that include the B12 Background: The labs were drawn on 10/27/23 Assessment: No symptoms noted Protocol Recommended Disposition: No disposition on file. Recommendation: Continue with care advice, wait for providers response Paged to provider and Coming Hay Does the patient meet one of the following criteria for ADS visit consideration? 16+ years old, with an [facility] PCP TIP Providers, please consider if this condition is appropriate for management at one of our Acute and Diagnostic Services sites. If patient is a good candidate, please use dotphrase <dot>triageresponse and select Refer to ADS to document. documented in this encounter Plan of Treatment Upcoming Encounters Date Type Department Care Team (Late st Contact Info) Description 01/09/2024 10:15 AM CDT Office Visit [facility]rology [facility] [place] [address] [facility], [address] [place] [phone] Genny Hyman PA-C [facility] Epilepsy [facility] 5775 [facility] 255 [place] [address] [place] [address] [facility] [address] 300 [place] [address] 02/06/2024 10:00 AM CDT Office Visit [facility] [address] [phone] Neil Kent MD 500 [place], [place] [address]335 03/06/2024 3:00 PM CDT Office Visit [facility] Heart [facility] [address] [facility] [address] [place] [phone] Radha Lomeli, MORTGAGE LOAN OFFICER ORIGINATOR FINANCIAL HEALTH COUNSELOR [address] [place] [address] 03/07/2024 9:00 AM CDT Hospital Encounter [facility] 909 [facility] 5th [place] [phone] Rocky Zepeda DO 500 [place] [address] 03/07/2024 9:00 AM CDT - 03/07/2024 9:30 AM CDT Surgery [facility] [address] [place] [address] 5th [place] [phone] Rocky Zepeda DO 500 [place], [place] [address] Esophagoscopy, gastroscopy, duodenoscopy (EGD), combined Scheduled Procedures Name Priority Associated Diagnoses Date/Ti mt ESOPHAGOGASTRODUODENOSCOPY Eosinophilic esophagitis Esophageal dysphagia 03/07/2024 9:00 AM CDT documented as of this encounter Visit Diagnoses Not on filedocumented in this encounter Additional Health Concerns Assessment Noted Time PHQ-9 Depression Total Score: 4 06/20/20 8:40 AM FRAMING INSPECTOR documented as of this encounter Care Teams Supervisor Filter Assembly Relationship Specialty Start Date End Date Esha Grimm PA-C [address] [place] [address] PCP - General Family Medicine 05/04/23 Diana Desir, [facility] [address] [place], [place] [address] Pharmacist Pharmacist 04/17/21 Rain Galaviz PA-C [address] [place] [address] [address] [place] [address] Physician Cleaning Professional Dermatology 04/28/21 Tavia Wyatt MD [address] [place] [address] [address] [place] [address] Dermatology 07/14/21 Erica Farrell APRN FINANCIAL HEALTH COUNSELOR 6405 [facility] [address] [place], [place] [address] Nurse Practitioner Cardiovascular Disease 09/09/21 Rich Barrett MD [address] [facility] 9[address] [place], [place] [address] Physician Ophthalmology 01/21/22 Neil Kent MD 500 [place] [address] Dermatology 02/24/22 Diana Desir, [facility] 3033 [place], [place] [address]136 Assigned [place] Pharmacist 04/07/22 Livan Sharif MD [address] [facility] [address] [place], [place] 6710[address] Cardiovascular Disease 05/14/22 Catherine Cm MD [address] 2289[address] Cardiovascular Disease 07/21/22 Valery Veronica, PA-C [address] [place] [address] Physician Cleaning Professional Dermatology 07/21/22 Brea Quinn APRN FINANCIAL HEALTH COUNSELOR 500 [place], [place] 5[address] Nurse Practitioner Dermatology 09/21/22 Brea Quinn APRN FINANCIAL HEALTH COUNSELOR [address] [place] [address] 556022 Assigned Surgical Provider 10/09/22 [place] [address] 763417 Assigned Musculoskeletal Provider 10/09/22 Alfonso Renteria MD 5775 [facility] 200 [place], [place] [address]586 Assigned Neuroscience Provider 04/02/23 Radha Lomeli APRN FINANCIAL HEALTH COUNSELOR [address] [place] [address] Assigned Heart and Vascular Provider 05/28/23 Jelena David OD [address] [place] [address] Ophthalmology 06/15/23 Pao Joseph, VJ Personal Advocate & Liaison (PAL) Nurse 08/01/23 11/07/23 Esha Grimm PA-C [address] [place] [address] Assigned PCP 07/16/23 Valery Vernoica PA-C [address] [place] [address] Physician Cleaning Professional Dermatology 09/19/23 Rey Tay MD [address] [place] [address] Gastroenterology 09/20/23 Rocky Zepeda DO [address] [place] [address] 121425 Physician Gastroenterology 09/20/23 Philip Dumont MD [address] [place] [address] 193605 Physician Ophthalmology 09/22/23 documented as of this encounter
--- OUTSIDE RECORDS SUMMARY | 2024-01-07 18:07 | XMS_ITS | Encounter Summary ---
Author Organization [facility] Address [address] [place] [address] Care Team Providers Care Endo Tech Name Role Phone Thang Diana [place] [facility] Unavailable [phone] Rain Galaviz PA-C Unavailable Tavia Wyatt MD Unavailable Unavailable Erica Farrell APRN SAP SECURITY ARCHITECT Unavailable Rich Barrett MD Unavailable Neil Kent MD Unavailable Diana Desir Stanislav [facility] Unavailable [phone] Livan Sharif MD Unavailable Catherine Cm MD Unavailable + Valery Veronica PA-C Unavailable [phone] Brea Quinn PRESS BREAKER SAP SECURITY ARCHITECT Unavailable Brea Quinn PRESS BREAKER SAP SECURITY ARCHITECT Unavailable Jose Francisco Johnson MD Unavailable Alfonso Renteria MD Unavailable + [phone] Esha Grimm PA-C Primary Care Provider [phone] Radha Lomeli PRESS BREAKER SAP SECURITY ARCHITECT Unavailable [phone] Jelena David OD Unavailable [phone] Pao Joseph RN Unavailable Unavailable Esha Grimm PA-C Unavailable [phone] Valery Veronica PA-C Unavailable [phone] Rey Tay MD Unavailable Rocky Zepeda DO Unavailable Philip Dumont MD Unavailable [phone] Encounter Details Date Type Department Care Team (Late st Contact Info) Description 10/27/2023 Telephone [facility] [place] [id number] [facility] 4th [place] [address] Rocky Zepeda DO 500 [place] [address] Social History Tobacco Use Types [...] often do you attend chur ch or taoist services? 1 to 4 times [...] Answer Date Recorded PHQ-2 Score 0 10/25/2023 [facility] - Occupational Stress Questionnaire Answer Date [...] exercise at this level? 30 min 03/10/2023 [place] Depression Scale Answer Date Recorded [place] Depression Score 5 01/14/2021 Last EPDS Self [...] Telephone Encounter - Jessa Castillo RN - 10/31/2023 10:48 AM CDT Reached out to pt to further triage upper GI system. Pt declines wanting a visit sooner than following her next EGD. Pt reports symptoms: Pain, burning in my stomach Swallowing on and off Chest tightness and chest pain Bread getting stuck Pt prescribed pepcid and carafate at recent ED visit. Pt trying to avoid medications, drinking aloe vera with unknown effects. Pt wants to see Meredith ALCALA right after her next endoscopy 12/20 followed by a visit with Dr Zepeda (, fall). Clinic Navigator messaged to assist with scheduling. Pt committed to continuing the elimination diet process. * Telephone Encounter - Josue Rod - 10/27/2023 4:41 PM CDT [facility] Phone Message [...] 10:15 AM CDT [facility] Neurology [facility] [address] [facility], [address] [place] [phone] Genny Hyman PA-C [facility] Epilepsy [facility] 5775 [facility] 255 [place], [place] 738826 [place] [address] [address] [place], [place] [address] 02/06/2024 10:00 AM CDT [facility] [address] [phone] Neil Kent MD 500 [place], [place] [address] 03/06/2024 3:00 PM CDT [facility] Heart [facility] [address] [facility] [address] [place] [phone] Radha Lomeli APRN SAP SECURITY ARCHITECT [address] [facility] [address] [place], [place] [address] 03/07/2024 9:00 AM CDT Hospital Encounter [facility] [address] [place] [address] 5th [place] [phone] Rocky Zepeda DO 500 [place], [place] [address] 03/07/2024 9:00 AM CDT - 03/07/2024 9:30 AM CDT Surgery [facility] [address] [place] [address] 5th [place] [phone] ZepedaRocky woodard, DO 500 [place], [place] 6[address]75 Esophagoscopy, gastroscopy, duodenoscopy (EGD), combined Scheduled Procedures Name Priority Associated Diagnoses Date/Ti nd ESOPHAGOGASTRODUODENOSCOPY Eosinophilic esophagitis Esophageal dysphagia 03/07/2024 9:00 AM CDT documented as of this encounter Visit Diagnoses Not on filedocumented in this encounter Additional Health Concerns Assessment Noted Time PHQ-9 Depression Total Score: 4 06/20/20 23 8:40 AM DIAMOND WHEEL EDGER documented as of this encounter Care Teams Endo Tech Relationship Specialty Start Date End Date Esha Grimm PA-C [address] [place] [address] PCP - General Family Medicine 05/04/23 [facility] 3033 [place] [address] Pharmacist Pharmacist 04/17/21 Rain Galaviz PA-C [address] [place] [address] [address] [place] [address] Physician Corrections Corporal Dermatology 04/28/21 Tavia Wyatt MD [address] [place] [address] [address] [place] [address] Dermatology 07/14/21 Erica Farrell APRN SAP SECURITY ARCHITECT [address] [facility] [address] [place], [place] [address] Nurse Practitioner Cardiovascular Disease 09/09/21 Rich Barrett MD [address] [facility] [address]A [place], [place] [address] Physician Ophthalmology 01/21/22 Neil Kent MD 500 [place], [place] 436[address] Dermatology 02/24/22 Diana Desir, [facility] 3033 [place], [place] [address] Assigned MTM Pharmacist 04/07/22 Livan Sharif MD [address] [place] [address] Cardiovascular Disease 05/14/22 Catherine Cm MD [address] [facility] [place] 4[address] Cardiovascular Disease 07/21/22 Valery Veronica, PA-C 909 [place], [place] [address] Physician Corrections Corporal Dermatology 07/21/22 Brea Quinn APRN SAP SECURITY ARCHITECT 500 [place] [address] Nurse Practitioner Dermatology 09/21/22 Brea Quinn APRN SAP SECURITY ARCHITECT [facility] [facility] [place] 368472 Assigned Surgical Provider 10/09/22 [place] [address] [place] [address] Assigned Musculoskeletal Provider 10/09/22 Alfonso Renteria MD [address] [facility] [address] 200 [place] [address] Assigned Neuroscience Provider 04/02/23 Radha Lomeli APRN SAP SECURITY ARCHITECT [address] [facility] [address] [place] [address] Assigned Heart and Vascular Provider 05/28/23 Jelena David OD [address] [facility] [place] [address] Ophthalmology 06/15/23 Pao Joseph, VJ Personal Advocate & Liaison (PAL) Nurse 08/01/23 11/07/23 Esha Grimm PA-C [address] [place] [address] Assigned PCP 07/16/23 Valery Veronica PA-C [address] [place] [address] 062975 Physician Corrections Corporal Dermatology 09/19/23 Rey Tay MD [address] [place] [address] 521065 Gastroenterology 09/20/23 Rocky Zepeda DO [address] [place] [address]6925 Physician Gastroenterology 09/20/23 Philip Dumont MD [address] [place] [address] 342035 Physician Ophthalmology 09/22/23 documented as of this encounter
--- OUTSIDE RECORDS SUMMARY | 2024-01-07 18:07 | XMS_ITS | Encounter Summary ---
Author Organization [facility] Address [address] [place] [address] Care Team Providers Care Manager Transit Name Role Phone Thang Diana Mayers [facility] Unavailable Rain Galaviz PA-C Unavailable Tavia Wyatt MD Unavailable Unavailable Erica Farrell APRN ENVIRONMENTAL SERVICE AIDE Unavailable Rich Barrett MD Unavailable Neil Kent MD Unavailable Diana Desir Stanislav [facility] Unavailable [phone] Livan Sharif MD Unavailable Catherine Cm MD Unavailable + Valery Veronica PA-C Unavailable [phone] Brea Quinn ACCESS TECH ENVIRONMENTAL SERVICE AIDE Unavailable Brea Quinn ACCESS TECH ENVIRONMENTAL SERVICE AIDE Unavailable Jose Francisco Johnson MD Unavailable Alfonso Renteria MD Unavailable + [phone] Esha Grimm PA-C Primary Care Provider [phone] Radha Lomeli ACCESS TECH ENVIRONMENTAL SERVICE AIDE Unavailable [phone] Jelena David OD Unavailable Esha Grimm PA-C Unavailable [phone] JeremíasValery PA-C Unavailable Rey Tay MD Unavailable Rocky Zepeda DO Unavailable Philip Dumont MD Unavailable Meredith Carrera PA-C Unavailable Neil Kent MD Unavailable Reason for Referral * Consultation (Routine: Next available opening) - Closed Specialty Diagnoses / Procedures Referred By Qian mayers Referred To Contact Diagnoses Tingling of both upper extremities Anthony Doe PA-C [address] [place] [address] Referral ID Status Reason Start Date Expiration Date Visits Re quested Visits Authorized [id number] Closed 11/16/2023 11/15/2024 1 1 Question Answer Referral Type: Per Protocol Scheduling Instructions: [facility] will call you to coordinate your care as prescribed by your provider. If you don't hear from a medical representative within 2 business days, please call . Comments Please be aware that coverage of these services is subject to the terms and limitations of your health insurance plan. Call member services at your health plan with any benefit or coverage questions. [facility] will call you to coordinate your care as prescribed by your provider. If you don't hear from a medical representative within 2 business days, please call . Reason for Visit * Reason Onset Date Comments Referral 11/16/2023 Encounter Details Date Type Department Care Team (Late st Contact Info) Description 11/16/2023 Telephone [facility] [address] [place] [address] Esha Grimm PA-C [address] [place] [address] Referral Social History Tobacco Use Types Packs/Day [...] 03/10/2023 How often do you attend [facility] or anglican services? 1 to 4 times [...] Answer Date Recorded PHQ-2 Score 0 10/25/2023 [facility] [...] exercise at this level? 30 min 03/10/2023 [place] Depression Scale Answer Date Recorded [place] Depression Score 5 01/14/2021 Last EPDS Self [...] Telephone Encounter - Asiya Reddy RN - 11/16/2023 2:41 PM CDT Called patient and advised of below and also that I sent below and referral information in a [employer] message for her. Asiya Reddy RN * Telephone Encounter - Anthony Doe PA-C - 11/16/2023 2:28 PM CDT Please call patient. I sent a spine referral. If they don't find anything, we could try a referral to neurology. Anthony Doe PA-C on 11/16/2023 at 2:28 PM (covering for Esha Grimm PA-C) * Telephone Encounter - Mariza Cook RN - 11/16/2023 2:13 PM CDT Order/Referral Request Who is requesting: Patient Orders being requested: Patient is wanting a referral to see neurology or a intervention specialist due tohaving ongoing symptoms of tingling and weakness in her arms Reason service is needed/diagnosis: tingling and numbness in her arms, more left than right, they come and go frequently, has had a full work up, does not feel she needs to go back to ED or UC again When are orders needed by: LISA Has this been discussed with Provider: Yes, per patient, PCP is aware, she was in ED about 2 weeks ago and had a full work up for these symptoms. Does patient have a preference on a Group/Provider/Facility? No Does patient have an appointment scheduled?: No Where to send orders: Place orders within [facility] Could we send this information to you in [employer] or would you prefer to receive a phone call?: Patient would prefer a phone call Okay to leave a detailed message?: Yes at Cell number on file: Telephone Information: ASSESSMENT/PLAN: UC Visit note 11/04/23 See UC Visit notes in Care Everywhere MDM/PLAN: Diffuse, migratory, numbness/tingling/paresthesias in a 23-year-old female with past medical history as noted below x 1+ years duration of uncertain etiology. 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 Patient has a very reassuring cardiac and neurologic exam today. ECG is normal. No evidence of focal neurologic deficits on exam. No evidence of acute medical distress requiring immediate emergency room or inpatient management now. I do think, given the prolonged nature of patient's migratory symptoms, she should have short interval follow-up with primary care team for further evaluation. I defer any further neurologic workup, hematologic, or endocrine workup to primary care provider. All above was discussed with patient today in layperson terms. Additionally, please see the below patient discharge summary/plan (which I reviewed with her verbally today and placed in my chart for home review). documented in this encounter Plan of Treatment Upcoming Encounters Date Type Department Care Team (Late st Contact Info) Description 01/09/2024 10:15 AM CDT Office Visit [facility] Neurology [facility] [address], [address] [place] [address] Genny Hyman PA-C [facility] Epilepsy Care 57[address] [facility] 255 [place], [place] [address] [place] [address] [facility] 300 [place] [address] 02/06/2024 10:00 AM CDT Office Visit [facility] [address] [address] Neil Kent MD 500 [place], [place] [address] 03/06/2024 3:00 PM CDT Office Visit [facility] Heart [facility] [address] [facility] [address] [place] [address] Armani Radha E, ACCESS TECH ENVIRONMENTAL SERVICE AIDE [address] [place] [address] 03/07/2024 9:00 AM CDT Hospital Encounter [address] 5th [place] [phone] Rocky Zepeda DO 500 [place], [place] [address]85 03/07/2024 9:00 AM CDT - 03/07/2024 9:30 AM CDT Surgery [address] [phone] Rocky Zepeda DO 500 [place], [place] [address]55 Esophagoscopy, gastroscopy, duodenoscopy (EGD), combined Scheduled Procedures Name Priority Associated Diagnoses Date/Ti ri ESOPHAGOGASTRODUODENOSCOPY Eosinophilic esophagitis Esophageal dysphagia 03/07/2024 9:00 AM CDT Scheduled Referrals Name Type Priority Associated Diagnoses Orde r Schedule Spine Database Dba Referral Referral Routine: Next available opening Tingling of both upper extremities Expected: 11/16/2023 (Approximate), Expires: 11/15/2024 documented as of this encounter Visit Diagnoses Diagnosis Tingling of both upper extremities- Primary Eosinophilic esophagitis Esophageal dysphagia Dysphagia, pharyngoesophageal phase documented in this encounter Additional Health Concerns Assessment Noted Time PHQ-9 Depression Total Score: 4 06/20/20 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 documented as of this encounter Care Teams Manager Transit Relationship Specialty Start Date End Date Esha Grimm PA-C [address] [place] [address] PCP - General Family Medicine 05/04/23 Diana Desir, [facility] [address] [place] [address] Pharmacist Pharmacist 04/17/21 Rain Galaviz PA-C [address] [place] [address] [address] [place] [address] Physician Television Maintenance Worker Dermatology 04/28/21 Tavia Wyatt MD [address] [place] [address] [address] [place] [address] Dermatology 07/14/21 Erica Farrell APRN [facility] [address] [place] [address] Nurse Practitioner Cardiovascular Disease 09/09/21 Rich Barrett MD [address] [place] [address], [facility] [address] [place], [place] [address] Physician Ophthalmology 01/21/22 Neil Kent MD [address] [place] [address] Dermatology 02/24/22 Diana Desir, [facility]3 [place] [address] Assigned MTM Pharmacist 04/07/22 Livan Sharif MD [address] [place] [address] Cardiovascular Disease 05/14/22 Catherine Cm MD [address] [place] [address] Cardiovascular Disease 07/21/22 Valery Veronica PA-C [address]09 [place] [address] Physician Television Maintenance Worker Dermatology 07/21/22 Brea Quinn APRN ENVIRONMENTAL SERVICE AIDE 500 [place] [address] Nurse Practitioner Dermatology 09/21/22 Brea Quinn APRN ENVIRONMENTAL SERVICE AIDE 6401 [place] [address] Assigned Surgical Provider 10/09/22 [place] [address] [facility] 300 [place] [address] Assigned Musculoskeletal Provider 10/09/22 Alfonso Renteria MD 5775 [facility] 200 [place], [place] [address] Assigned Neuroscience Provider 04/02/23 Radha Lomeli APRN ENVIRONMENTAL SERVICE AIDE [address] [facility] [address] [place] [address] Assigned Heart and Vascular Provider 05/28/23 Jelena David OD 3305 [facility] [place] [id number] Ophthalmology 06/15/23 Esha Grimm PA-C [address] [place] [address] Assigned PCP 07/16/23 Valery Veronica PA-C [address] [place] [address]005 Physician Television Maintenance Worker Dermatology 09/19/23 eRy Tay MD [address] [place] [address] 502585 MD Gastroenterology 09/20/23 Rocky Zepeda DO [address] [place] [address] 212645 Physician Gastroenterology 09/20/23 Philip Dumont MD [address] [place] [address] Physician Ophthalmology 09/22/23 Meredith Carrera PA-C [address] [place] [address] 368245 Assigned Gastroenterology Provider 11/01/23 Neil Kent MD [address] 862080 Dermatology 11/02/23 documented as of this encounter
--- OUTSIDE RECORDS SUMMARY | 2024-01-07 18:07 | XMS_ITS | Encounter Summary ---
Author Organization [place] Address [address] [place] [address] Care Team Providers Care Net Developer With Wcf Name Role Phone Thang Diana [place] [facility] Unavailable [phone] Rain Galaviz PA-C Unavailable [phone] Tavia Wyatt MD Unavailable Unavailable Erica Farrell APRN FAMILY CONSUMER SCIENCE TEACHER Unavailable Rich Barrett MD Unavailable Neil Kent MD Unavailable Diana Desir Stanislav [facility] Unavailable [phone] Livan Sharif MD Unavailable Catherine Cm MD Unavailable + Valery Veronica PA-C Unavailable [phone] Brea Quinn WASH HOUSE SUPERVISOR FAMILY CONSUMER SCIENCE TEACHER Unavailable [phone] Brea Quinn WASH HOUSE SUPERVISOR FAMILY CONSUMER SCIENCE TEACHER Unavailable [phone] Jose Francisco Johnson MD Unavailable Alfonso Renteria MD Unavailable + [phone] Esha Grimm PA-C Primary Care Provider Radha Lomeli WASH HOUSE SUPERVISOR FAMILY CONSUMER SCIENCE TEACHER Unavailable [phone] FrankieJelena OD Unavailable Pao Joseph RN Unavailable Unavailable [facility] PA-C Unavailable [phone] Valery Veronica PA-C Unavailable [phone] Rey Tay MD Unavailable Rocky Zepeda DO Unavailable Philip Dumont MD Unavailable [phone] Meredith CarreraC Unavailable [phone] Neil Kent MD Unavailable Encounter Details Date Type Department Care Team (Latest Contact Info) Description 11/04/2023 Travel Social History Tobacco Use Types Packs/Day [...] Score 0 10/25/2023 [facility] - Occupational Stress Questionnaire Answer [...] exercise at this level? 30 min 03/10/2023 [place] Depression Scale Answer Date Recorded [place] Depression Score 5 01/14/2021 Last EPDS Self [...] Description 01/09/2024 10:15 AM CDT Office Visit [facility] Neurology [facility] [address] [place] [address], [address] [place] [address] Genny Hyman PA-C [facility] Epilepsy [facility] 5775 [facility] 255 [place], [place] [address] [place] [address] [facility] 300 [place], [place] [address] 02/06/2024 10:00 AM CDT Office Visit [facility] [address] [phone] Neil Kent MD 500 [place], [place] [address] 03/06/2024 3:00 PM CDT Office Visit [facility] Heart [facility] [address] [facility] [address] [place] [address] Radha Lomeli APRN FAMILY CONSUMER SCIENCE TEACHER [address] [facility] [address] [place], [place] [address] 03/07/2024 9:00 AM CDT Hospital Encounter [facility] 9[address] [facility] 5th [place] [address] Zepeda, DO Rocky 500 [place] [address] 03/07/2024 9:00 AM CDT - 03/07/2024 9:30 AM CDT [facility] 9[address] [facility] 5th [place] [phone] Rocky Zepeda DO 500 [place] [address] Esophagoscopy, gastroscopy, duodenoscopy (EGD), combined Scheduled Procedures Name Priority Associated Diagnoses Date/Ti wv ESOPHAGOGASTRODUODENOSCOPY Eosinophilic esophagitis Esophageal dysphagia 03/07/2024 9:00 AM CDT documented as of this encounter Visit Diagnoses Not on filedocumented in this encounter Additional Health Concerns Assessment Noted Time PHQ-9 Depression Total Score: 4 06/20/20 23 8:40 AM EXERCISER documented as of this encounter Care Teams Net Developer With Wcf Relationship Specialty Start Date End Date Esha Grimm PA-C [address] [place] [address] PCP - General Family Medicine 05/04/23 Diana Desir, [facility] [address] [place] [address] Pharmacist Pharmacist 04/17/21 Rain Galaviz PA-C [address] [place] [address] [place] [address] Physician Group Leader Wafer Polishing Dermatology 04/28/21 Tavia Wyatt MD [address] [place] [address] [place] [address] Dermatology 07/14/21 Erica Farrell APRN FAMILY CONSUMER SCIENCE TEACHER [address] [place] [address] Nurse Practitioner Cardiovascular Disease 09/09/21 Rich Barrett MD 516 [facility], CLINIC [address]A [place] [address] Physician Ophthalmology 01/21/22 Neil Kent MD 500 [place] [address] Dermatology 02/24/22 Diana Desir, [facility] [address] [place], [place] [address] Assigned [place] Pharmacist 04/07/22 Livan Sharif MD [address] [place], [place] [address] Cardiovascular Disease 05/14/22 Catherine Cm MD [address] [place] [address] Cardiovascular Disease 07/21/22 Valery Veronica PA-C 909 [place], [place] [address] Physician Group Leader Wafer Polishing Dermatology 07/21/22 Brea Quinn APRN FAMILY CONSUMER SCIENCE TEACHER 500 [place], [place] [address] Nurse Practitioner Dermatology 09/21/22 Brea Quinn APRN FAMILY CONSUMER SCIENCE TEACHER 6401 [facility] [place] [address] Assigned Surgical Provider 10/09/22 [place] [address] [place] [address] [place] [address] Assigned Musculoskeletal Provider 10/09/22 Alfonso Renteria MD [address] [facility] 200 [place], [place] [address] Assigned Neuroscience Provider 04/02/23 Radha Lomeli APRN FAMILY CONSUMER SCIENCE TEACHER 6405 [facility] [address] [place] [address] Assigned Heart and Vascular Provider 05/28/23 Jelena David OD [address] [facility] [place] [address] Ophthalmology 06/15/23 Pao Joseph, VJ Personal Advocate & Liaison (PAL) Nurse 08/01/23 11/07/23 Esha Grimm PA-C [address] [place] [phone] Assigned PCP 07/16/23 Valery Veronica PA-C 909 [place], [place] 3805[address] Physician Group Leader Wafer Polishing Dermatology 09/19/23 Rey Tay MD 909 [place], [place] 25[address] Gastroenterology 09/20/23 Rocky Zepeda DO [address] [place] [address] Physician Gastroenterology 09/20/23 Philip Dumont MD [address] [place] [address] Physician Ophthalmology 09/22/23 Meredith Carrera PA-C [address] [place] [address] Assigned Gastroenterology Provider 11/01/23 Neil Kent MD [address] [address] Dermatology 11/02/23 documented as of this encounter
--- OUTSIDE RECORDS SUMMARY | 2024-01-07 18:07 | XMS_ITS | Encounter Summary ---
Author Organization [place] Address [address] [place] [address] Care Team Providers Care Office Spec Name Role Phone Thang Diana [place] [facility] Unavailable Rain Galaviz PA-C Unavailable Tavia Wyatt MD Unavailable Unavailable Erica Farrell APRN RETENTION SPECIALIST Unavailable Rich Barrett MD Unavailable Neil Kent MD Unavailable Diana Desir Stanislav [facility] Unavailable [phone] Livan Sharif MD Unavailable Catherine Cm MD Unavailable + Valery Veronica PA-C Unavailable [phone] Brea Quinn NETWORK SUPPORT ANALYST RETENTION SPECIALIST Unavailable Brea Quinn NETWORK SUPPORT ANALYST RETENTION SPECIALIST Unavailable Jose Francisco Johnson MD Unavailable Alfonso Renteria MD Unavailable + [phone] Esha Grimm PA-C Primary Care Provider Radha Lomeli NETWORK SUPPORT ANALYST RETENTION SPECIALIST Unavailable [phone] Jelena David OD Unavailable Esha Grimm PA-C Unavailable [phone] Valery Veronica-C Unavailable [phone] Rey Tay MD Unavailable Duane Rockyanne STEVENS Unavailable Philip Dumont MD Unavailable [phone] Meredith Carrera PA-C Unavailable [phone] Neil Kent MD Unavailable Juan Pablo Emmanuel MD Unavailable [phone] Encounter Details Date Type Department Care Team (Late st Contact Info) Description 11/15/2023 MyC Medical Advice [address] [phone] Vivian Grant Social History Tobacco Use Types Packs/Day Years [...] Date Recorded PHQ-2 Score 0 10/25/2023 [facility] Occupational Stress Questionnaire [...] in an abandoned building, in an overnight skilled nursing, or couch-surfing.) Yes 07/14/2023 Are you worried [...] Visit [facility] Neurology [facility] [address], [address] [place] [phone] Genny Hyman PA-C [facility] [address] [facility] [address] [place], [place] [id number] [place] [address] [facility] [address] [place], [place] [address] 02/06/2024 10:00 AM CDT Office Visit [facility] [address] [phone] Neil Kent MD 500 [place], [place] [id number] 03/06/2024 3:00 PM CDT Office Visit [facility] Heart [facility] [address] [facility] [address] [place] [phone] Radha Lomeli, NETWORK SUPPORT ANALYST RETENTION SPECIALIST [address] [facility] [address] [place] [address] 03/07/2024 9:00 AM CDT Hospital Encounter [facility] [address] [facility] [address] [place] [phone] Rocky Zepeda DO [address] [place] [address] 03/07/2024 9:00 AM CDT - 03/07/2024 9:30 AM CDT Surgery [facility] [address] [facility] [address] [place] [phone] Rocky Zepeda DO [address] [place] [address] Esophagoscopy, gastroscopy, duodenoscopy (EGD), combined Scheduled Procedures Name Priority Associated Diagnoses Date/Ti sc ESOPHAGOGASTRODUODENOSCOPY Eosinophilic esophagitis Esophageal dysphagia 03/07/2024 9:00 AM CDT documented as of this encounter Visit Diagnoses Not on filedocumented in this encounter Additional Health Concerns Infection Onset Date Last Indicated Resolved Time Rule Out COVID-19 12/26/2023 12/26/2023 12/26/2023 9:50 AM CDT Assessment Noted Time PHQ-9 Depression Total Score: 4 06/20/20 23 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 FREEZER PERSON documented as of this encounter Care Teams Office Spec Relationship Specialty Start Date End Date Esha Grimm PA-C [address] [place] [phone] PCP - General Family Medicine 05/04/23 Diana Desir, [facility] [address] [place] [address] Pharmacist Pharmacist 04/17/21 Rain Galaviz PA-C [address] [place] [address] [address] [place] GARCIA [address] Physician Complaint Supervisor Dermatology 04/28/21 Tavia Wyatt MD [address] [place] [address] ENMA KNUTSON [address] Dermatology 07/14/21 Erica Farrell APRN RETENTION SPECIALIST [address] [place] [address] Nurse Practitioner Cardiovascular Disease 09/09/21 Rich Barrett MD [address] [place] [address] [id number] Physician Ophthalmology 01/21/22 Neil Kent MD [address] [place] [address] [phone] Dermatology 02/24/22 Diana Desir, [facility] [address] [place] [id number] Assigned [place] Pharmacist 04/07/22 Livan Sharif MD [address] [facility] [place] [address] Cardiovascular Disease 05/14/22 Catherine Cm MD [address] [facility] [place] [address] Cardiovascular Disease 07/21/22 Valery Veronica, PA-C [address] [place] [address] 329345 Physician Complaint Supervisor Dermatology 07/21/22 Brea Quinn APRN RETENTION SPECIALIST [address] [place], [place] 7[address] Nurse Practitioner Dermatology 09/21/22 Brea Quinn APRN RETENTION SPECIALIST [address] [place], [place] [phone] Assigned Surgical Provider 10/09/22 [place] [address] [address] Assigned Musculoskeletal Provider 10/09/22 Alfonso Renteria MD [address] [phone] Assigned Neuroscience Provider 04/02/23 Rahda Lomeli APRN RETENTION SPECIALIST [address] [phone] Assigned Heart and Vascular Provider 05/28/23 Jelena David OD [address] [facility] [address] [place] [id number] Ophthalmology 06/15/23 Esha Grimm PA-C [address] [place] [phone] Assigned PCP 07/16/23 Valery Veronica PA-C [address] [place], [place] [phone] Physician Complaint Supervisor Dermatology 09/19/23 Rey Tay MD [address] [place] [address] Gastroenterology 09/20/23 Rocky Zepeda DO [address] [place] [address] Physician Gastroenterology 09/20/23 Philip Dumont MD [address] [place] [address] Physician Ophthalmology 09/22/23 Meredith Carrera PAUcheC [address] [place] [address] Assigned Gastroenterology Provider 11/01/23 Neil Kent MD [address] [address] Dermatology 11/02/23 [place] [address] [place] [address] Neurological Surgery 12/26/23 documented as of this encounter
--- OUTSIDE RECORDS SUMMARY | 2024-01-07 18:07 | XMS_ITS | Encounter Summary ---
Author Organization [place] Address [address] [place] [id number] Care Team Providers Care Structural Architect Name Role Phone Thang Diana [place] [facility] Unavailable Rain Galaviz PA-C Unavailable Tavia Wyatt MD Unavailable Unavailable Erica Farrell APRN AMBULANCE DISPATCHER Unavailable Rich Barrett MD Unavailable Neil Kent MD Unavailable Diana Desir Stanislav [facility] Unavailable [phone] Livan Sharif MD Unavailable Catherine Cm MD Unavailable + Valery Veronica PA-C Unavailable [phone] Brea Quinn INOCULATOR AMBULANCE DISPATCHER Unavailable [phone] Brea Quinn INOCULATOR AMBULANCE DISPATCHER Unavailable Jose Francisco Johnson MD Unavailable Alfonso Renteria MD Unavailable + [phone] Esha Grimm PA-C Primary Care Provider Rahda Lomeli INOCULATOR AMBULANCE DISPATCHER Unavailable [phone] FrankieJelenae OD Unavailable Pao Joseph RN Unavailable Unavailable Wicho Grimmlincoln Medina PAUcheC Unavailable [phone] Valery Veronica PA-C Unavailable [phone] Rey Tay MD Unavailable ZepedaRocky Unavailable Philip Dumont MD Unavailable [phone] Meredith CarreraC Unavailable [phone] Neil Kent MD Unavailable Reason for Visit * Reason Comments Urgent Care Intermittent tinglin g in chest and arms for the last year. See nurse call from today Encounter Details Date Type Department Care Team (Late st Contact Info) Description 11/04/2023 6:35 PM CDT Office Visit [facility] [place] [id number] [place] [phone] Anthony Lazcano PA-C [address] [place] [address] Atypical chest pain (Primary Dx); Tingling of both upper extremities; Numbness and tingling of left leg; Elevated vitamin B12 level Social History Tobacco Use Types Packs/Day Years [...] PHQ-2 Score 0 [facility]20[facility]ational Stress Questionnaire [...] exercise at this level? 30 min 03/10/2023 Stratford Depression Scale Answer Date Recorded Stratford Depression Score 5 01/14/2021 Last EPDS Self [...] Answer Date Recorded Do you have housing? ([place]ab[place] g is defined as stable permanent housing [...] Sign Reading Time Taken Comments Blood Pressure 101/64 11/04/2023 6:44 PM CDT Pulse 71 11/04/2023 6:44 PM CDT Temperature 36.7 ??C (98 ??F) 11/04/2023 6:44 PM CDT Respiratory Rate - - Oxygen Saturation 97% 11/04/2023 6:44 PM CDT Inhaled Oxygen Concentration - - Weight 82.6 kg (182 lb) 11/04/2023 6:44 PM CDT Height 167.6 cm (5' 6) 11/04/2023 6:44 PM CDT Body Mass Index 29.38 11/04/2023 6:44 PM CDT documented in this encounter Patient Instructions * Patient Instructions* Anthony Lazcano PA-C - 11/04/2023 6:35 PM CDT November 04, 2023 Urgent Care Plan: As we discussed today, I do not know the cause of your 2-hours of intermittent numbness and tingling sensation across your entire chest and both upper arms today. I also do not know the cause of your1+ year history of intermittent, migratory, numbness and tingling in various areas of your body (chest, both arms, both legs, upper back, lower back, and tongue). As we reviewed today, your recent vitamin B level testing on 10/26/2023 show elevated B12 and B6 levels. Some people can have numbness and tingling sensations when they have elevated vitamin B levels.However, as per your report, it sounds like your symptoms started before you took the vitamin supplement suspected to be the cause of your high vitamin B levels, and reports your symptoms continue after you have stopped your vitamin supplements. TESTS DONE TODAY: -Your ECG (also called EKG), which is an electrical tracing of your heart, is normal today -Your CBC (also called complete blood count) is normal today -I ordered a repeat vitamin B12 lab test (please watch your MyChart for this result) -I ordered a repeat vitamin B6 lab test (please watch your MyChart for this result) -I ordered a TSH lab test (which is a thyroid screening test). Please watch your MyChart for this result -I advise you make an appointment next week to see your primary care provider to discuss your chronic, intermittent, episodes of migratory numbness and tingling and to review all pending lab test results from today's urgent care visit. -The topic of MS was discussed today during your urgent care visit. If you have any concerns about MS, please review your concern with your primary care provider at your advised post urgent care follow-up visit. - I also sent a copy of the above and a copy of my urgent care note to your primary care provider for you. documented in this encounter Progress Notes * Anthony Lazcano PA-C - 11/04/2023 6:35 PM CDT ASSESSMENT/PLAN: MDM/PLAN: Diffuse, migratory, numbness/tingling/paresthesias in a 23-year-old [...] placed in my chart for home review). AVS/Plan- November 04, 2023 Urgent Care Plan: As we discussed today, I do not know the cause of your 2-hours of intermittent numbness and tingling sensation across your entire chest and both upper arms today. I also do not know the cause of your1+ year history of intermittent, migratory, numbness and tingling in various areas of your body (chest, both arms, both legs, upper back, lower back, and tongue). As we reviewed today, your recent vitamin B level testing on 10/26/2023 show elevated B12 and B6 levels. Some people can have numbness and tingling sensations when they have elevated vitamin B levels.However, as per your report, it sounds like your symptoms started before you took the vitamin supplement suspected to be the cause of your high vitamin B levels, and reports your symptoms continue after you have stopped your vitamin supplements. TESTS DONE TODAY: -Your ECG (also called EKG), which is an electrical tracing of your heart, is normal today -Your CBC (also called complete blood count) is normal today -I ordered a repeat vitamin B12 lab test (please watch your MyChart for this result) -I ordered a repeat vitamin B6 lab test (please watch your MyChart for this result) -I ordered a TSH lab test (which is a thyroid screening test). Please watch your MyChart for this result -I advise you make an appointment next week to see your primary care provider to discuss your chronic, intermittent, episodes of migratory numbness and tingling and to review all pending lab test results from today's urgent care visit. -The topic of MS was discussed today during your urgent care visit. If you have any concerns about MS, please review your concern with your primary care provider at your advised post urgent care follow-up visit. - I also sent a copy of the above and a copy of my urgent care note to your primary care provider for you. (R07.89) Atypical chest pain (primary encounter diagnosis) Plan: CBC with platelets and differential, Basic metabolic panel (Ca, Cl, CO2, Creat, Gluc, K, Na, BUN), TSH with free T4 reflex, Vitamin B12, Vitamin B6, EKG 12-lead complete w/read - Clinics November 04, 2023 Urgent Care Plan: (R20.2) Tingling of both upper extremities Plan: CBC with platelets and differential, Basic metabolic panel (Ca, Cl, CO2, Creat, Gluc, K, Na, BUN), TSH with free T4 reflex, Vitamin B12, Vitamin B6, EKG 12-lead complete w/read - Clinics (R20.0, R20.2) Numbness and tingling of left leg Plan: CBC with platelets and differential, Basic metabolic panel (Ca, Cl, CO2, Creat, Gluc, K, Na, BUN), TSH with free T4 reflex, Vitamin B12, Vitamin B6, EKG 12-lead complete w/read - Clinics (R74.8) Elevated vitamin B12 level Plan: CBC with platelets and differential, Basic metabolic panel (Ca, Cl, CO2, Creat, Gluc, K, Na, BUN), TSH with free T4 reflex, Vitamin B12, Vitamin B6, EKG 12-lead complete w/read - Clinics This progress note has been dictated, with use of voice recognition software. Any grammatical, typographical, or context errors are unintentional and inherent to use of voice recognition software. Chief Complaint Patient presents with Urgent Care Intermittent tingling in chest and arms for the last year. See nurse call from today Kim Johnson is a very pleasant 23-year-old female, with a recent past medical history of hypervitaminosis. Patient was recently found to have an elevated B12 level (1,430) and an elevated B6 level(284.6) on 10/27/23 (please see results on file in Epic) --after taking a byron vitamin called Nutridyn, presenting to urgent care today for evaluation of intermittent tingling of her entire chest, and tingling of both her left and right arm. Patient states she has been having this problem intermittently for 1+ years now, and placed a nurse only call to her primary care team earlier today to discuss these symptoms. She was advised to report to urgent care for evaluation for lab testing (patientdoes not know what labs her PCP is requesting). Of note, patient reprots symptoms started prior to her use of vitamin supplement . She has reportedly stopped taking her uxsy-ueh-phclyww Byron vitamin, but notes symptoms continue. Last episode of her above generalized entire chest and bilateral arm tingling was approximally 2 pmtoday. Patient states she was laying down in bed when symptoms began. She reports, It feels like really sensitive nerve endings when this happens. Tingling sensation reportedly lasts a couple of minutes, resolves for 10 to 15 minutes, and then returns. Today's cyclical episodes are estimated to have lasted 2 hours--which she states is typical for these episodes. Some episodes, over the past year, reportedly are also associated with tongue numbness and tingling, upper and lower back numbness and tingling, bilateral leg numbness and tingling. She did not have any of the above associated symptoms today. Of Note: Patient does carry a past history of SVT (for which she reportedly underwent successful ablation). She denies any sense of tachycardia or SVT now. No active chest pain. No acute decrease in exertional tolerance. No acute shortness of breath. REVIEW OF [facility] NURSING NOTE FROM TODAY: Nurse Triage SBAR Is this a 2nd Level Triage? YES, LICENSED PRACTITIONER REVIEW IS REQUIRED Situation: Pt calls to report intermittent tingling. Background: Pt states her symptoms have been ongoing for about a year intermittently. She states she has not been previously evaluated for these symptoms, but would like to now as she notices it moreoften. Pt denies hx diabetes. Assessment: Pt reports episodes of tingling last minutes to hours in her arms and chest area. She also reports left arm numbness/weakness and tingling in left arm on and off often- not currently. Pt reports 2 episodes of numbness on her tongue. Pt reports occasional tingling in her left leg, but not numbness or weakness. Pt reports occasional pain in back of neck, where her muscles feel tight in back of neck and over the chest. Pt denies chest pain and SOB. Protocol Recommended Disposition: Go To ED/UCC Now (Or To Office With PCP Approval) Review Of Systems: Positive as per above Consitutional: No acute fever Skin: No acute systemic rash or hives Eyes: No acute visual changes Respiratory: No acute shortness of breath, dyspnea on exertion, cough, or hemoptysis Cardiovascular: Patient denies any palpitations, tachycardia, irregular heart beat, dyspnea on exertion, orthopnea, lower extremity edema, syncope or near- syncope or acute decrease in her exercise intolerance Gastrointestinal: Positive for eosinophilic esophagitis for which she is currently following with GI. Musculoskeletal: No acute injury or trauma Neurologic: No acute mental status change. Positive for distant history of seizures, but no recent seizures. No one-sided body weakness numbness or tingling now. No acute visual or speech changes. Noheadache now. Patient reports she has one MAunt and one Maternal first cousin with history of MS. She, herself, has reportedly not had any MS evaluation. No acute syncope or near syncope. No acute headache today. Psychiatric: Positive for history of anxiety, which she reports is under good control. Patient states she does not feel her current symptoms are related to anxiety or panic attacks. Endocrine: No history of DM or thyroid disorder Past Medical History: Diagnosis Date Anxiety Chronic kidney disease stones, history of infections Depressive disorder Gastroesophageal reflux disease Psoriasis Seizure (H) 05/02/2019 no seizure since approx 2018 SVT (supraventricular tachycardia) (H24) Past Surgical History: Procedure Laterality Date EP ABLATION SVT N/A 08/28/2021 Procedure: EP Ablation SVT; Surgeon: Galo Burrell MD; Location: [facility]IX SYSTEM ADMINISTRATOR ESOPHAGOSCOPY, GASTROSCOPY, DUODENOSCOPY (EGD), COMBINED N/A 06/26/2021 [...] on file Tobacco Use Smoking status: Former Current packs/day: 0.00 Types: Other, Cigarettes Quit date: 12/07/2019 Years since quittin.9 Passive exposure: Past Smokeless tobacco: Never Vaping Use Vaping status: Never Used Substance and Sexual Activity Alcohol use: Not [...] 30 min Stress: Stress Concern Present (03/10/2023) [employer] [facility] [employer] - Occupational Stress Questionnaire Feeling of Stress : To some extent Social Connections: Moderately Isolated (03/10/2023) Social Connection and Isolation Panel [NHANES] Frequency of Communication with Friends and Family: Three times a week Frequency of Social Gatherings with Friends and Family: Twice a week Attends Taoism Services: 1 to 4 times per year [...] hx of Glaucoma No family hx of Current Outpatient Medications Medication Sig Dispense Refill [...] for this visit. Allergies Allergen Reactions Vancomycin OBJECTIVE: BP 101/64 Pulse 71 Temp 98 ??F (36.7 ??C) (Tympanic) Ht 1.676 m (5' 6) Wt 82.6 kg (182 lb) LMP (LMP Unknown) SpO2 97% BMI 29.38 kg/m?? General appearance: alert and no apparent distress Skin color is uniform in color and without systemic rash or hives HEENT: Conjunctiva not injected. Sclera clear. Nasal mucosa is normal. NECK: Trachea is midline. No carotid bruits or JVD. No thyromegaly or adenopathy. CARDIAC:NORMAL - regular rate and rhythm without murmur. RESP: No reproducible pain on palpation of chest wall today. Normal - CTA without rales, rhonchi, or wheezing.Good breath sounds into all listening areas today ABDOMEN: Abdomen soft, non-tender. BS normal. No masses, organomegaly EXTREMITIES: No asymmetry. Lower legs are equally symmetrical bilaterally. No redness, swelling, heat or pain of lower extremities. NEURO: PERRLA. Alert and oriented. Undilated fundoscopic exam within normal limits. CN II/XII grossly intact. Gait within normal limits. UE/LE strength, DTR's and sensation to light touch good and equal bilaterally. Normal Rhomberg and pronator drift testing.Gait is WINL LE: No LE edema Today's ECG: NSR @ 62 BPM. No ectopy. No evidence of acute ischemic changes. documented in this encounter Plan of Treatment Upcoming Encounters Date Type Department Care Team (Late st Contact Info) Description 01/09/2024 10:15 AM CDT Office Visit [facility] [address], [address] [place] [address] Genny Hmyan PA-C [facility] Epilepsy [facility] [address] [facility] [address] [place], [place] [address] [place] [address] [place], [place] [id number] 02/06/2024 10:00 AM CDT Office Visit [facility] [place] [address] [phone] Neil Kent MD [address] [place] [address] 03/06/2024 3:00 PM CDT Office Visit [facility] [address] [facility] [address] [place] [phone] Radha Lomeli, INOCULATOR AMBULANCE DISPATCHER [address] [place] [address] 03/07/2024 9:00 AM CDT Hospital Encounter [address] [place] [phone] Rocky Zepeda DO [address] [place] [address] 03/07/2024 9:00 AM CDT - 03/07/2024 9:30 AM CDT Surgery [address] [phone] Rocky Zepeda DO [address] [place], [place] [phone] Esophagoscopy, gastroscopy, duodenoscopy (EGD), combined Scheduled Procedures Name Priority Associated Diagnoses Date/Ti wi ESOPHAGOGASTRODUODENOSCOPY Eosinophilic esophagitis Esophageal dysphagia 03/07/2024 9:00 AM CDT documented as of this encounter Procedures Procedure Name Priority Date/Time Associated Diagnosis Comments CBC WITH PLATELETS AND DIFFERENTIAL Routine 11/04/2023 7:36 PM CDT Atypical chest pain Tingling of both upper extremities Numbness and tingling of left leg Elevated vitamin B12 level CBC WITH PLATELETS & DIFFERENTIAL Routine 11/04/2023 [...] of left leg Elevated vitamin B12 level documented in this encounter Results * CBC with platelets and differential (11/04/2023 7:36 PM CDT) Pathologist [facility] WBC Count 7.7 4.0 - 11.0 10e3/uL 11/04/2023 7:38 PM CDT [facility] RBC Count 4.69 3.80 - 5.20 10e6/uL 11/04/2023 7:38 PM CDT [facility] Hemoglobin 12.5 11.7 - 15.7 g/dL 11/04/2023 7:38 PM CDT [facility] Hematocrit 38.7 35.0 - 47.0 % 11/04/2023 7:38 PM CDT [facility] MCV 83 78 - 100 fL 11/04/2023 7:38 PM CDT [facility] MCH 26.7 26.5 - 33.0 pg 11/04/2023 7:38 PM CDT [facility] MCHC 32.3 31.5 - 36.5 g/dL 11/04/2023 7:38 PM CDT [facility] RDW 12.3 10.0 - 15.0 % 11/04/2023 7:38 PM CDT [facility] Platelet Count 218 150 - 450 10e3/uL 11/04/2023 7:38 PM CDT [facility] % Neutrophils 56 % 11/04/2023 7:38 PM CDT [facility] % Lymphocytes 34 % 11/04/2023 7:38 PM CDT [facility] % Monocytes 6 % 11/04/2023 7:38 PM CDT [facility] % Eosinophils 4 % 11/04/2023 7:38 PM CDT [facility] % Basophils 0 % 11/04/2023 7:38 PM CDT [facility] % Immature Granulocytes 0 % 11/04/2023 7:38 PM CDT [facility] Absolute Neutrophils 4.3 1.6 - 8.3 10e3/uL 11/04/2023 7:38 PM CDT [facility] Absolute Lymphocytes 2.6 0.8 - 5.3 10e3/uL 11/04/2023 7:38 PM CDT [facility] Absolute Monocytes 0.4 0.0 - 1.3 10e3/uL 11/04/2023 7:38 PM CDT [facility] Absolute Eosinophils 0.3 0.0 - 0.7 10e3/uL 11/04/2023 7:38 PM CDT [facility] Absolute Basophils 0.0 0.0 - 0.2 10e3/uL 11/04/2023 7:38 PM CDT [facility] Absolute Immature Granulocytes 0.0 <=0.4 10e3/uL 11/04/2023 7:38 PM CDT [facility] Blood BLOOD SPECIMEN / Unknown Venipuncture / Unknown 11/04/2023 7:36 PM CDT 11/04/2023 7:36 PM CDT Anthony Lazcano PA-C LAB - BLOOD ORDERABLES [facility] [address] [facility] Lab (no room number, 1st floor of clinic) [place] [address], [facility] [phone] * (ABNORMAL) Vitamin B6 (11/04/2023 7:36 PM CDT) Vitamin B6 184.4(H) 20.0 - 125.0 nmol/L 11/09/2023 8:17 AM CDT [employer] Comment: INTERPRETIVE INFORMATION: Vitamin B6 (Pyridoxal 5-Phosphate) Pyridoxal 5'-phosphate measured in a specimen collected following an 8-hour or overnight fast accurately indicates vitamin B6 nutritional status. Non-fasting specimen concentration reflects recent vitamin intake. This test was developed and its performance characteristics determined by [employer]. It has not been cleared or approved by the US Food and Drug Administration. This test was performed in a CLIA certified laboratory and is intended for clinical purposes. Performed By: [employer] [address] [place] [id number] Operator: Johnny Smith MD, PhD CLIA Number: [id number] Blood BLOOD SPECIMEN / Unknown Venipuncture / Unknown 11/04/2023 7:36 PM CDT 11/04/2023 7:36 PM CDT Anthony Lazcano PA-C LAB - BLOOD ORDERABLES [facility] [employer] [address] [place] [id number] [phone] * Vitamin B12 (11/04/2023 7:36 PM CDT) Pathologist [facility] Vitamin B12 999 232 - 1,245 pg/mL 11/05/2023 7:43 PM CDT LABORATORY Blood BLOOD SPECIMEN / Unknown Venipuncture / Unknown 11/04/2023 7:36 PM CDT 11/04/2023 7:36 PM CDT Anthony Lazcano PA-C LAB - BLOOD ORDERABLES LABORATORY [facility] [address] [facility], [address] [place] [address] * TSH with free T4 reflex (11/04/2023 7:36 PM CDT) TSH 3.02 0.30 - 4.20 uIU/mL 11/05/2023 6:38 PM CDT [facility] Blood BLOOD SPECIMEN / Unknown Venipuncture / Unknown 11/04/2023 7:36 PM CDT 11/04/2023 7:36 PM CDT Anthony Lazcano PA-C LAB - BLOOD ORDERABLES [facility] [address] [facility], [address] [place] [phone], [facility] * Basic metabolic panel (Ca, Cl, CO2, [...] PA-C LAB - BLOOD ORDERABLES [facility] [address] [facility], [address] [place] [address], [facility] * EKG 12-lead complete w/read - Clinics (11/04/2023) Anthony Lazcano PA-C ECG ORDERABL ES documented in this encounter Visit Diagnoses Diagnosis Atypical chest pain- Primary Other chest pain Tingling of both upper extremities Numbness and tingling of left leg Disturbance of skin sensation Elevated vitamin B12 level Eosinophilic esophagitis Esophageal dysphagia Dysphagia, pharyngoesophageal phase documented in this encounter Additional Health Concerns Assessment Noted Time PHQ-9 Depression Total Score: 4 06/20/20 23 8:40 AM MARKETING CONSULTANT documented as of this encounter Care Teams Structural Architect Relationship Specialty Start Date End Date Esha Grimm PA-C [address] [place] [phone] PCP - General Family Medicine 05/04/23 Diana Desir, [facility] [address] [place] [address] Pharmacist Pharmacist 04/17/21 Rain Galaviz PA-C [address] [place] [address] [place] [address] Physician Mountain Bike Guide Dermatology 04/28/21 Tavia Wyatt MD [address] [place] [address] [address] [facility] [place] [address] Dermatology 07/14/21 Erica Farrell APRN AMBULANCE DISPATCHER [address] [place], [place] [phone] Nurse Practitioner Cardiovascular Disease 09/09/21 Rich Barrett MD [address] [address] Physician Ophthalmology 01/21/22 Neil Kent MD [address] [place], [place] [address] Dermatology 02/24/22 [facility] [address] [place], [place] [phone] Assigned MTM Pharmacist 04/07/22 Livan Sharif MD [address] [address] Cardiovascular Disease 05/14/22 Catherine Cm MD [address] [address] Cardiovascular Disease 07/21/22 Valery Veronica, PA-C [address] [place] [phone] Physician Mountain Bike Guide Dermatology 07/21/22 Brea Quinn APRN AMBULANCE DISPATCHER [address] [place], [place] [address] Nurse Practitioner Dermatology 09/21/22 Brea Quinn APRN AMBULANCE DISPATCHER [address] [facility] [address] Assigned Surgical Provider 10/09/22 [place] [address] [facility] [address] [place] [address] Assigned Musculoskeletal Provider 10/09/22 Alfonso Renteria MD [address] [facility] [address] [place], [place] [phone] Assigned Neuroscience Provider 04/02/23 Radha Lomeli APRN AMBULANCE DISPATCHER [id number] [place] [address] Assigned Heart and Vascular Provider 05/28/23 Jelena David OD [address] [facility] [place] [address] Ophthalmology 06/15/23 Pao Joseph, VJ Personal Advocate & Liaison (PAL) Nurse 08/01/23 11/07/23 Esha Grimm PA-C [address] [place] [phone] Assigned PCP 07/16/23 Valery Veronica PA-C [address] [place] [address] Physician Mountain Bike Guide Dermatology 09/19/23 Rey Tay MD 9 [place] [address] Gastroenterology 09/20/23 Rocky Zepeda DO [address] [place] [address] Physician Gastroenterology 09/20/23 Philip Dumont MD [address] [place] [address] Physician Ophthalmology 09/22/23 Meredith Carrera PA-C [address] [place] [address] Assigned Gastroenterology Provider 11/01/23 Neil Kent MD [address] [place] [address] Dermatology 11/02/23 documented as of this encounter
--- OUTSIDE RECORDS SUMMARY | 2024-01-07 18:07 | XMS_ITS | Encounter Summary ---
Author Organization [facility] Address [address] [place] [address] Care Team Providers Care Chief Pilot Name Role Phone Thang Diana [place] [facility] Unavailable [phone] Rain Galaviz PA-C Unavailable Tavia Wyatt MD Unavailable Unavailable Erica Farrell APRN MOTOR VEHICLE TECHNICIAN Unavailable Rich Barrett MD Unavailable Neil Kent MD Unavailable Diana Desir Stanislav [facility] Unavailable [phone] Livan Sharif MD Unavailable Catherine Cm MD Unavailable + Valery Veronica PA-C Unavailable [phone] Brea Quinn PROVIDER SCRIBE MOTOR VEHICLE TECHNICIAN Unavailable Brea Quinn PROVIDER SCRIBE MOTOR VEHICLE TECHNICIAN Unavailable Jose Francisco Johnson MD Unavailable Alfonso Renteria MD Unavailable + [phone] Esha Grimm PA-C Primary Care Provider Radha Lomeli PROVIDER SCRIBE MOTOR VEHICLE TECHNICIAN Unavailable [phone] Jelena David OD Unavailable [phone] Esha Grimm Adam DOWC Unavailable [phone] Valery Veronica PA-C Unavailable [phone] Rey Tay MD Unavailable Rocky Zepeda DO Unavailable Philip Dumont MD Unavailable [phone] Meredith CarreraC Unavailable [phone] Neil Kent MD Unavailable Reason for Visit * Reason Comments Urgent Care 1 week ago , pain in pelvic area . Urgency Frequency. Feels like she is having bloating in bladder area, achy. Lower back pain . STD testing . Encounter Details Date Type Department Care Team ([facility] st Contact Info) Description 11/14/2023 11:00 AM CDT Office Visit [facility] [place] [address] [place] [address] Yolande Mora MD [address] [facility] [address] [place], [place] [address] Urinary problem (Primary Dx); Screen for STD (sexually transmitted disease); Yeast infection of the vagina Social History Tobacco Use Types Packs/Day Years [...] do you attend chur or taoism services? 1 to 4 times [...] Answer Date Recorded PHQ-2 Score 0 10/25/2023 [facility] - [...] exercise at this level? 30 min 03/10/2023 [place] Depression Scale Answer Date Recorded [place] Depression Score 5 01/14/2021 Last EPDS [...] Sign Reading Time Taken Comments Blood Pressure 116/76 11/14/2023 10:11 AM CDT Pulse 72 11/14/2023 10:11 AM CDT Temperature 36.9 ??C (98.5 ??F) 11/14/2023 10:11 AM C DT Respiratory Rate 18 11/14/2023 10:11 AM CDT Oxygen Saturation 99% 11/14/2023 10:11 AM CDT Inhaled Oxygen Concentration - - Weight 82.6 kg (182 lb) 11/14/2023 10:11 AM CDT Height 167.6 cm (5' 6) 11/14/2023 10:11 AM CDT Body Mass Index 29.38 11/14/2023 10:11 AM CDT documented in this encounter Patient Instructions * Patient Instructions* Yolande Mora MD - 11/14/2023 11:00 AM CDT Return in about 5 days if no improvement in symptoms * Attachments The following attachments cannot be sent through Care Everywhere. * Vaginal Yeast Infection (Ukrainian) documented in this encounter Progress Notes * Yolande Mora MD - 11/14/2023 11:00 AM CDT Chief Complaint Patient presents with Urgent Care 1 week ago , pain in pelvic area . Urgency Frequency. Feels like she is having bloating in bladder area, achy. Lower back pain . STD testing . Kim was seen today for urgent care. Diagnoses and all orders for this visit: Urinary problem - UA Macroscopic with reflex to Microscopic and Culture - Lab Collect; Future - Wet prep - lab collect; Future - UA Macroscopic with reflex to Microscopic and Culture - Lab Collect - Wet prep - lab collect - UA Microscopic with Reflex to Culture Screen for STD (sexually transmitted disease) - Chlamydia & Gonorrhea by PCR, GICH/Range - Clinic Collect - Hepatitis B surface antigen; Future - Hepatitis C antibody; Future - HIV Antigen Antibody Combo [place]; Future - Treponema Abs w Reflex to RPR and Titer; Future Kim Johnson is a 23 year old female who presents for evaluation of vaginal discharge. The story is classic for yeast vaginitis with history of clumpy whitish vaginal discharge with itching and without urinary symptoms of internal dysuria, frequency, fevers, or back pain. She is sexually active Will start on diflucan and follow up closely with primary. Std screening test pending Uc pending Reviewed result with patient PLAN: Treatment per orders - also push fluids, may use Pyridium OTC prn. Call or return to clinic prn if these symptoms worsen or fail to improve as anticipated. Results for orders placed or performed in visit on 11/14/23 UA Macroscopic with reflex to Microscopic and Culture - Lab Collect Status: Abnormal Specimen: Urine, Clean Catch Result Value Ref Range Color Urine Yellow Colorless, Straw, Light Yellow, Yellow Appearance Urine Clear Clear Glucose Urine Negative Negative mg/dL Bilirubin Urine Negative Negative Ketones Urine Negative Negative mg/dL Specific Enterprise Urine 1.010 1.003 - 1.035 Blood Urine Trace (A) Negative pH Urine 7.0 5.0 - 7.0 Protein Albumin Urine Negative Negative mg/dL Urobilinogen Urine 0.2 0.2, 1.0 E.U./dL Nitrite Urine Negative Negative Leukocyte Esterase Urine Negative Negative UA Microscopic with Reflex to Culture Status: Abnormal Result Value Ref Range Bacteria Urine Few (A) None Seen /HPF RBC Urine None Seen 0-2 /HPF /HPF WBC Urine None Seen 0-5 /HPF /HPF Squamous Epithelials Urine Few (A) None Seen /LPF Narrative Urine Culture not indicated Wet prep - lab collect Status: Abnormal Specimen: Vagina; Swab Result Value Ref Range Trichomonas Absent Absent Yeast Present (A) Absent Clue Cells Absent Absent WBCs/high power field 2+ (A) None SUBJECTIVE: Kim Johnson is a 23 year old female who complains of urinary frequency, urgency and dysuria x 7 days, without flank pain, fever, chills, or abnormal vaginal discharge or bleeding. She has new partner Had a sexual intercourse a week back OBJECTIVE: Appears well, in no apparent distress. Vital signs are normal. The abdomen is soft without tenderness, guarding, mass, rebound or organomegaly. No CVA tenderness or inguinal adenopathy noted. Urine dipstick shows no infection documented in this encounter Plan of Treatment Upcoming Encounters Date Type Department Care Team (Late st Contact Info) Description 01/09/2024 10:15 AM CDT Office Visit [facility] [address], [address] [place] [phone] Genny Hyman PA-C [facility] Ep[facility] 5775 [facility] 255 [place], [place] [address] [place] [address] [place] [address] 02/06/2024 10:00 AM CDT Office Visit [facility] [address] [phone] Neil Kent MD 500 [place], [place] [address] 03/06/2024 3:00 PM CDT Office Visit [facility] [address] [place] [phone] Radha Lomeli, PROVIDER SCRIBE MOTOR VEHICLE TECHNICIAN [address] [place] [address] 03/07/2024 9:00 AM CDT Hospital Encounter [facility] [address] [place] [address] 5th [place] [phone] Rocky Zepeda DO 500 [place], [place] [address] 03/07/2024 9:00 AM CDT - 03/07/2024 9:30 AM CDT Surgery [address]th [place] [phone] Rocky Zepeda DO 500 [place] [address] Esophagoscopy, gastroscopy, duodenoscopy (EGD), combined Scheduled Procedures Name Priority Associated Diagnoses Date/Ti nm ESOPHAGOGASTRODUODENOSCOPY Eosinophilic esophagitis Esophageal dysphagia 03/07/2024 9:00 AM CDT documented as of this encounter Procedures Procedure Name Priority Date/Time Associated Diagnosis Comments HIV ANTIGEN ANTIBODY COMBO Routine 11/14/2023 10:43 AM CDT Screen for STD (sexually transmitted disease) TREPONEMA ABS W REFLEX TO RPR AND TITER Routine 11/14/2023 10:43 AM CDT Screen for STD (sexually transmitted disease) HEPATITIS C ANTIBODY Routine 11/14/2023 10:43 AM CDT Screen for STD (sexually transmitted disease) HEPATITIS B SURFACE ANTIGEN Routine 11/14/2023 10:43 AM CDT Screen for STD (sexually transmitted disease) CHLAMYDIA TRACHOMATIS/NEISSERI A GONORRHOEAE BY PCR Routine 11/14/2023 10:31 AM CDT Screen for STD (sexually transmitted disease) UA MICROSCOPIC WITH REFLEX TO CULTURE Routine 11/14/2023 9:51 AM CDT Urinary problem UA MACROSCOPIC WITH REFLEX TO MICRO AND CULTURE Routine 11/14/2023 9:51 AM CDT Urinary problem WET PREPARATION Routine 11/14/2023 9:51 AM CDT Urinary problem URINE CULTURE Add-On 11/14/2023 9:51 AM CDT Urinary problem documented in this encounter Results * Treponema Abs w Reflex to RPR and Titer (11/14/2023 10:43 AM CDT) Treponema Antibody Total Nonreactive Nonreactive 11/14/2023 8:33 PM CDT [facility]PROT/EN DO Blood BLOOD SPECIMEN / Unknown Venipuncture / Unknown 11/14/2023 10:43 AM CDT 11/14/2023 10:45 AM CDT Yolande Mora MD LAB - BLOOD ORDERABL ES [facility]/PROT/ENDO [facility]/Prot/Endo 500 [facility], Room [address] [place] [address] * HIV Antigen Antibody Combo [place] (11/14/2023 10:43 AM CDT) HIV Antigen Antibody Combo Nonreactive Nonreactive 11/14/2023 8:48 PM CDT [facility] Comment:Negative HIV-1 p24 a ntigen and [...] Mora MD LAB - BLOOD ORDERABL ES U LAB[facility]ATORY [facility] [place] [facility] 500 [facility], [address] * Hepatitis C antibody (11/14/2023 10:43 AM CDT) Hepatitis C Antibody Nonreactive Nonreactive 11/14/2023 8:10 PM CDT U LABORATORY Comment:A nonreactive screen ing [...] Mora MD LAB - BLOOD ORDERABL ES Performing Organization Address City/[facility]/ZIP Co de Phone Number U LABORATORY [facility] [place] [facility] 500 [facility], [address] [phone] [place] [address] * Hepatitis B surface antigen (11/14/2023 10:43 AM CDT) Hepatitis B Surface Antigen Nonreactive Nonreactive 11/14/2023 8:10 PM CDT [facility] LAB[facility] Blood BLOOD SPECIMEN / Unknown Venipuncture / Unknown 11/14/2023 10:43 AM CDT 11/14/2023 10:45 AM CDT Yolande Mora MD LAB - BLOOD ORDERABL ES [facility] LAB[facility]ATORY [facility] [place] 500 [facility], [address] 3[address] [place] [phone] * Chlamydia & Gonorrhea by PCR, G[facility]/Range - Clinic Collect (11/14/2023 10:31 AM CDT) Chlamydia Trachomatis Negative Negative 11/15/2023 11:01 AM CDT [facility] Comment: Negative for C. trachomatis rRNA by precinct police captain mediated amplification. A negative result by precinct police captain mediated amplification does not preclude the presence of infection because results are dependent on proper and adequate collection, absence of inhibitors and sufficient rRNA to be detected. Neisseria gonorrhoeae Negative Negative 11/15/2023 11:01 AM CDT [facility] Comment:Negative for N. gono rrhoeae rRNA by precinct police captain mediated amplification. A negative result by precinct police captain mediated amplification does not preclude the presence of C. trachomatis infection because results are dependent on proper and adequate collection, absence of inhibitors and sufficient rRNA to be detected. Swab VAGINAL STRUCTURE / Unknown Non-blood Collection / Unknown 11/14/2023 10:31 AM CDT 11/14/2023 10:32 AM CDT Yolande Mora MD LAB - MICRO GENERAL ORDERABLES [facility] Inf. Diseases Diag. Lab 500 [facility], [address] [place] [phone] * Urine Culture Aerobic Bacterial - lab collect (11/14/2023 9:51 AM CDT) Pathologist [facility] Culture <10,000 CFU/mL Mixture of Urogenital Darlene 11/15/2023 10:53 AM CDT [facility] Urine URINE SPECIMEN OBTAINED BY CLEAN CATCH PROCEDURE / Unknown Non-blood Collection / Unknown 11/14/2023 9:51 AM CDT 11/14/2023 10:04 AM CDT Yolande Mora MD LAB - MICRO GENERAL ORDERABLES [facility] Inf. Diseases Diag. Lab 500 [facility], [address] [place] [address] * (ABNORMAL) UA Microscopic with Reflex to Culture (11/14/2023 9:51 AM CDT) Bacteria Urine Few(A) None Seen /HPF REINA 11/14/2023 10:16 AM CDT [facility] RBC Urine None Seen 0-2 /HPF /HPF REINA 11/14/2023 10:16 AM CDT [facility] WBC Urine None Seen 0-5 /HPF /HPF REINA 11/14/2023 10:16 AM CDT [facility] Squamous Epithelials Urine Few(A) None Seen /LPF REINA 11/14/2023 10:16 AM CDT [facility] Urine URINE SPECIMEN OBTAINED BY CLEAN CATCH PROCEDURE / Unknown Non-blood Collection / Unknown 11/14/2023 9:51 AM CDT 11/14/2023 10:04 AM CDT Narrative [facility] - 11/14/2023 10:16 AM CDT Urine Culture not indicated Yolande Mora MD LAB - URINE ORDERABL ES LABORATORY [facility] Lab [address] [facility] (no room number, 1st floor of clinic) [place] [address], [facility] [phone] * (ABNORMAL) Wet prep - lab collect (11/14/2023 9:51 AM CDT) Trichomonas Absent Absent REINA 11/14/2023 10:08 AM CDT [facility] Yeast Present(A) Absent REINA 11/14/2023 10:08 AM CDT [facility] Clue Cells Absent Absent REINA 11/14/2023 10:08 AM CDT [facility] WBCs/high power field 2+(A) None REINA 11/14/2023 10:08 AM CDT [facility] Swab VAGINAL STRUCTURE / Unknown Non-blood Collection / Unknown 11/14/2023 9:51 AM CDT 11/14/2023 10:04 AM CDT Yolande Mora MD LAB - MICRO GENERAL ORDERABLES [facility] [facility] [address] [facility] (no room number, 1st floor of clinic) [place] [address], [place] [phone] * (ABNORMAL) UA Macroscopic with reflex to Microscopic and Culture - Lab Collect (11/14/2023 9:51 AM CDT) Color Urine Yellow Colorless, Straw, Light Yellow, Yellow 11/14/2023 10:13 AM CDT LABORATORY Appearance Urine Clear Clear 11/14/19 24 10:13 AM CDT LABORATORY Glucose Urine Negative Negative mg/dL 11/14/2023 10:13 AM CDT LABORATORY Bilirubin Urine Negative Negative 10:13 AM CDT LABORATORY Ketones Urine Negative Negative mg/dL 11/14/2023 10:13 AM CDT LABORATORY Specific Enterprise Urine 1.010 1.003 - 1.035 11/14/2023 10:13 [...] Mora MD LAB - URINE ORDERABL ES [facility] [address] [facility] (no room number, 1st floor of clinic) [place] [address] [phone] documented in this encounter Visit Diagnoses Diagnosis Urinary problem- Primary Other urinary problems Screen for STD (sexually transmitted disease) Screening examination for venereal disease Yeast infection of the vagina Candidiasis of vulva and vagina Eosinophilic esophagitis Esophageal dysphagia Dysphagia, pharyngoesophageal phase documented in this encounter Additional Health Concerns Assessment Noted Time PHQ-9 Depression Total Score: 4 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 documented as of this encounter Care Teams Chief Pilot Relationship Specialty Start Date End Date Esha Grimm PA-C [address] [place] [address] PCP - General Family Medicine 05/04/23 Diana Desir, [facility] [address] [place] [address] Pharmacist Pharmacist 04/17/21 Rain Galaviz PA-C [address] [place] [address] [address] [place] [address] Physician Dairy Tester Dermatology 04/28/21 Tavia Wyatt MD [address] [place] [address] [address] [place] [address] Dermatology 07/14/21 Erica Farrell APRN MOTOR VEHICLE TECHNICIAN [address] [facility] [address] [place] [address] Nurse Practitioner Cardiovascular Disease 09/09/21 Rich Barrett MD 516 [facility] [address] [place], [place] [address] Physician Ophthalmology 01/21/22 Neil Kent MD 500 [place], [place] [phone] Dermatology 02/24/22 Diana Desir, [facility] [address] [place], [place] [address]64[address] Assigned [place] Pharmacist 04/07/22 Livan Sharif MD [address] [facility] [address] [place], [place] 77[address] Cardiovascular Disease 05/14/22 Catherine Cm MD [address] [facility] [place], [place] 6935[address] Cardiovascular Disease 07/21/22 Valery Veronica, PA-C [address] [place] [address] Physician Dairy Tester Dermatology 07/21/22 Brea Quinn APRN MOTOR VEHICLE TECHNICIAN [address] [place] [address] Nurse Practitioner Dermatology 09/21/22 Brea Quinn APRN MOTOR VEHICLE TECHNICIAN [address] [place] [address] 243082 Assigned Surgical Provider 10/09/22 [place] [address] 791[address] Assigned Musculoskeletal Provider 10/09/22 Alfonso Renteria MD 5775 [facility] 200 [place], [place] [phone] Assigned Neuroscience Provider 04/02/23 Radha Lomeli APRN MOTOR VEHICLE TECHNICIAN [address] [facility] [address] [place] [address] Assigned Heart and Vascular Provider 05/28/23 Jelena David OD [address] [facility] [address] [place] [id number] MD Ophthalmology 06/15/23 Esha Grimm PA-C [address] [place] [phone] Assigned PCP 07/16/23 Valery Veronica PA-C [address] [place] [address] 584025 Physician Dairy Tester Dermatology 09/19/23 Rey Tay MD [address] [place] [address] 182625 Gastroenterology 09/20/23 Rocky Zepeda DO [address] [place] [address] 319245 Physician Gastroenterology 09/20/23 Philip Dumont MD [address] [place] [address] 944185 Physician Ophthalmology 09/22/23 Meredith Carrera PA-C [address] [place] [address] Assigned Gastroenterology Provider 11/01/23 Neil Kent MD [address] [place] [address] Dermatology 11/02/23 documented as of this encounter
--- OUTSIDE RECORDS SUMMARY | 2024-01-07 18:07 | XMS_ITS | Encounter Summary ---
Author Organization [facility] Address [address] [place] [address] Care Team Providers Care Fuel Agent Name Role Phone Thang Diana [place] [facility] Unavailable Rain Galaviz PA-C Unavailable Tavia Wyatt MD Unavailable Unavailable Erica Farrell APRN FOOD PREPARATION KITCHEN AIDE Unavailable Rich Barrett MD Unavailable Neil Kent MD Unavailable Diana Desir Stanislav [facility] Unavailable [phone] Livan Sharif MD Unavailable Catherine Cm MD Unavailable + Valery Veronica PA-C Unavailable [phone] Brea Quinn PSYCHIATRIC NP FOOD PREPARATION KITCHEN AIDE Unavailable Brea Quinn PSYCHIATRIC NP FOOD PREPARATION KITCHEN AIDE Unavailable Jose Francisco Johnson MD Unavailable Alfonso Renteria MD Unavailable [phone] Esha Grimm PA-C Primary Care Provider Radha Lomeli PSYCHIATRIC NP FOOD PREPARATION KITCHEN AIDE Unavailable [phone] Jelena David OD Unavailable Esha Grimm PA-C Unavailable [phone] Valery Veronica-C Unavailable [phone] Rey Tay MD Unavailable Duane Rockyanne [place] Unavailable Philip Dumont MD Unavailable [phone] Meredith Carrera PA-C Unavailable [phone] Neil Kent MD Unavailable Juan Pablo Emmanuel MD Unavailable [phone] Encounter Details Date Type Department Care Team (Late st Contact Info) Description 11/16/2023 MyC Medical Advice [address] [address] Asiya Reddy, RN Social History Tobacco Use Types Packs/Day [...] Answer Date Recorded PHQ-2 Score 0 10/25/2023 [facility] Answer [...] at this level? 30 min 03/10/2023 [place] Depression Scale Answer Date Recorded [place] Depression Score 5 01/14/2021 Last EPDS Self [...] Visit [facility] Neurology [facility] [address] [facility], [address] [place] [phone] Genny Hyman PA-C [facility] 5775 [facility] 255 [place], [place] [address] [place] [address] [address] [place], [place] [address] 02/06/2024 10:00 AM CDT Office Visit [facility] [address] [phone] Neil Kent MD 500 [place], [place] [address] 03/06/2024 3:00 PM CDT Office Visit [facility] Heart [facility] [address] [facility] [address] [place] [phone] Radha Lomeli, PSYCHIATRIC NP FOOD PREPARATION KITCHEN AIDE [address] [place] [address] 03/07/2024 9:00 AM CDT Hospital Encounter [facility] [place] 909 [facility] 5th [place] [phone] Rocky Zepeda, DO 500 [place], [place] [address] 03/07/2024 9:00 AM CDT - 03/07/2024 9:30 AM CDT Surgery [facility] [place] 9[address] [facility] 5th [place] [phone] Rocky Zepeda DO 500 [place] [address] Esophagoscopy, gastroscopy, duodenoscopy (EGD), combined Scheduled Procedures Name Priority Associated Diagnoses Date/Ti nc ESOPHAGOGASTRODUODENOSCOPY Eosinophilic esophagitis Esophageal dysphagia 03/07/2024 9:00 AM CDT documented as of this encounter Visit Diagnoses Not on filedocumented in this encounter Additional Health Concerns Infection Onset Date Last Indicated Resolved Time Rule Out COVID-19 12/26/2023 12/26/2023 12/26/2023 9:50 AM CDT Assessment Noted Time PHQ-9 Depression Total Score: 4 06/20/20 23 8: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 FORMER documented as of this encounter Care Teams Fuel Agent Relationship Specialty Start Date End Date Esha Grimm PA-C [address] [place] [phone] PCP - General Family Medicine 05/04/23 Diana Desir [facility] 30[address] [place] [address] Pharmacist Pharmacist 04/17/21 Rain Galaviz PA-C [address] [place] [address] [address] [place] [address] Physician Implementation Director Dermatology 04/28/21 Tavia Wyatt MD [address] [place] [address] [place] [address] Dermatology 07/14/21 Erica Farrell APRN FOOD PREPARATION KITCHEN AIDE [address] [place] [address] Nurse Practitioner Cardiovascular Disease 09/09/21 Rich Barrett MD [address] [place] [address] 448765 Physician Ophthalmology 01/21/22 Neil Kent MD [address] [place] [address] 084385 Dermatology 02/24/22 Diana Desir, [facility] [address] [place] [address]996 Assigned [place] Pharmacist 04/07/22 Livan Sharif MD [address], [facility] [place] [address] Cardiovascular Disease 05/14/22 Catherine Cm MD [address] [facility] [place] 539575 Cardiovascular Disease 07/21/22 Valery Veronica, PA-C [address] [place] [address] 665735 Physician Implementation Director Dermatology 07/21/22 Brea Quinn APRN FOOD PREPARATION KITCHEN AIDE 500 [place], [place] 6[address] Nurse Practitioner Dermatology 09/21/22 Brea Qiunn APRN FOOD PREPARATION KITCHEN AIDE 6401 [place], [place] 535582 Assigned Surgical Provider 10/09/22 [place] [address] [address] Assigned Musculoskeletal Provider 10/09/22 Alfonso Renteria MD 5775 [facility] 200 [place], [place] [address] Assigned Neuroscience Provider 04/02/23 Radha Lomeli APRN FOOD PREPARATION KITCHEN AIDE [address] [address] Assigned Heart and Vascular Provider 05/28/23 Jelena David OD [address] [facility] [address] [place] [id number] Ophthalmology 06/15/23 Esha Grimm PA-C [address] [place] [phone] Assigned PCP 07/16/23 Valery Veronica PA-C [address] [place], [place] 5914[address] Physician Implementation Director Dermatology 09/19/23 Rey Tay MD 909 [place] [address] MD Gastroenterology 09/20/23 Rocky Zepeda DO [address] [place] [address] Physician Gastroenterology 09/20/23 Philip Dumont MD [address] [place] [address] Physician Ophthalmology 09/22/23 Meredith Carrera PAUcheC [address] [place] [address] Assigned Gastroenterology Provider 11/01/23 Neil Kent MD [address] [address] Dermatology 11/02/23 [place] [address] [place] [address] Neurological Surgery 12/26/23 documented as of this encounter
--- OUTSIDE RECORDS SUMMARY | 2024-01-07 18:07 | XMS_ITS | Encounter Summary ---
Author Organization [place] Address [address] [place] [address] Care Team Providers Care Substation Manager Name Role Phone Thang Diana [place] [facility] Unavailable Rain Galaviz PA-C Unavailable Tavia Wyatt MD Unavailable Unavailable Erica Farrell APRN TRAVELING SECRETARY Unavailable Rich Barrett MD Unavailable Neil Kent MD Unavailable Diana Desir Stanislav [facility] Unavailable [phone] Livan Sharif MD Unavailable Catherine Cm MD Unavailable + Valery Veronica PA-C Unavailable [phone] Brea Qunin ONYX CHIP TERRAZZO WORKER TRAVELING SECRETARY Unavailable Brea Quinn ONYX CHIP TERRAZZO WORKER TRAVELING SECRETARY Unavailable [phone] Jose Francisco Johnson MD Unavailable Alfonso Renteria MD Unavailable + [phone] Esha Grimm PA-C Primary Care Provider Radha Lomeli ONYX CHIP TERRAZZO WORKER TRAVELING SECRETARY Unavailable [phone] Jelena David OD Unavailable Pao Joseph RN Unavailable Unavailable Esha Grimm PA-C Unavailable [phone] Valery Veronica PA-C Unavailable [phone] Rey Tay MD Unavailable Duane Rocky DO Unavailable Philip Dumont MD Unavailable [phone] Encounter Details Date Type Department Care [...] do you attend [facility] or catholic services? 1 to 4 [...] PHQ-2 Score 0 10/25/2023 [facility] [place] of Occupat ional Health - Occupational Stress [...] at this level? 30 min 03/10/2023 [place] Depression Scale Answer Date Recorded [place] Depression Score 5 01/14/2021 Last EPDS Self [...] CDT Office Visit [facility] Neurology [facility] [address] [facility], [address] [place] [phone] Genny Hyman PA-C [facility] Epilepsy [facility] [address] [facility] 255 [place], [place] 8[address] [place] [address] [facility] 300 [place], [place] [address]27 02/06/2024 10:00 AM CDT Office Visit [facility] [address] [phone] Neil Kent MD 500 [place], [place] [phone] 03/06/2024 3:00 PM CDT Office Visit [facility] Heart [facility] [address] [facility] [address] [place] [phone] Radha Lomeli, ARLENE TRAVELING SECRETARY [address] [facility] [facility] [address] [place], [place] [address] 03/07/2024 9:00 AM CDT Hospital Encounter [facility] [address] [facility] [address] 5th [place] [phone] Rocky Zepeda DO 500 [place], [place] [phone] 03/07/2024 9:00 AM CDT - 03/07/2024 9:30 AM CDT Surgery [facility] [address] [facility] 5th [place] [phone] Zepeda Rocky, DO 500 [place] [address] Esophagoscopy, gastroscopy, duodenoscopy (EGD), combined Scheduled Procedures Name Priority Associated Diagnoses Date/Ti pa ESOPHAGOGASTRODUODENOSCOPY Eosinophilic esophagitis Esophageal dysphagia 03/07/2024 9:00 AM CDT documented as of this encounter Visit Diagnoses Not on filedocumented in this encounter Additional Health Concerns Assessment Noted Time PHQ-9 Depression Total Score: 4 06/20/20 23 8:40 AM SOLAR TECHNICIAN documented as of this encounter Care Teams Substation Manager Relationship Specialty Start Date End Date Esha Grimm PA-C [address] [place] [address] PCP - General Family Medicine 05/04/23 Diana Desir, [facility] 3033 [place] [address] Pharmacist Pharmacist 04/17/21 Rain Galaviz PA-C [address] [place] [address] [place] [address] Physician Mobile Paint Specialist Dermatology 04/28/21 Tavia Wyatt MD [address] [place] [address] [place] [address] Dermatology 07/14/21 Erica Farrell APRN TRAVELING SECRETARY 6405 [facility] [address] [place] [address] Nurse Practitioner Cardiovascular Disease 09/09/21 Rich Barrett MD [address] [facility] 9A [place], [place] 8[address]15 Physician Ophthalmology 01/21/22 Neil Kent MD 500 [place], [place] 7[address]255 Dermatology 02/24/22 Diana Desir, [facility] 3033 [place], [place] 518886 Assigned [place] Pharmacist 04/07/22 Livan Sharif MD [address] [facility]00 [place], [place] 6[address]135 Cardiovascular Disease 05/14/22 Catherine Cm MD [address] 425315 Cardiovascular Disease 07/21/22 Valery Veronica, PA-C 909 [place], [place] 294465 Physician Mobile Paint Specialist Dermatology 07/21/22 Bera Quinn APRN TRAVELING SECRETARY 500 [place], [place] 0[address]25 Nurse Practitioner Dermatology 09/21/22 Brea Quinn APRN TRAVELING SECRETARY [address] [facility] [place] [address]02 Assigned Surgical Provider 10/09/22 [place] [address] [facility] 300 [place] [address] Assigned Musculoskeletal Provider 10/09/22 Alfonso Renteria MD [address] [facility] 200 [place], [place] 776536 Assigned Neuroscience Provider 04/02/23 Radha Lomeli APRN TRAVELING SECRETARY 6405 [facility] [address] [place] [address]775 Assigned Heart and Vascular Provider 05/28/23 Jelena David OD [address] [facility] [address] [place] [phone] Ophthalmology 06/15/23 Pao Joseph, VJ Personal Advocate & Liaison (PAL) Nurse 08/01/23 11/07/23 Esha Grimm PA-C [address] [place] [address] Assigned PCP 07/16/23 Valery Veronica PA-C [address] [place] [address] 633495 Physician Mobile Paint Specialist Dermatology 09/19/23 Rey Tay MD [address] [place] [address] [phone] Gastroenterology 09/20/23 Rocky Zepeda DO [address] [place] [address] [phone] Physician Gastroenterology 09/20/23 Philip Dumont MD [address] [place] [address] Physician Ophthalmology 09/22/23 documented as of this encounter
[2024-01-07] MEDS: 0.9 % SODIUM CHLORIDE 1000 ml 1,000 ML IV (18:08)
--- OUTSIDE RECORDS SUMMARY | 2024-01-07 18:08 | XMS_ITS | Encounter Summary ---
Author Organization [place] Address [address] [place] [address] Care Team Providers Care Patient Relations Specialist Name Role Phone Thang [place] [facility] Unavailable Rain Galaviz PA-C Unavailable Tavia Wyatt MD Unavailable Unavailable Erica Farrell APRN NEW GRAD RN Unavailable Rich Barrett MD Unavailable Neil Kent MD Unavailable Diana Desir Stanislav [facility] Unavailable [phone] Livan Sharif MD Unavailable Catherine Cm MD Unavailable + Valery Veronica PA-C Unavailable [phone] Brea Quinn FILLETER NEW GRAD RN Unavailable Bera Quinn FILLETER NEW GRAD RN Unavailable Jose Francisco Johnson MD Unavailable Alfonso Renteria MD Unavailable + [phone] Esha Grimm PA-C Primary Care Provider Radha Lomeli FILLETER NEW GRAD RN Unavailable [phone] Frankie Jelena Garcia OD Unavailable Pao Joseph RN Unavailable Unavailable Esha Grimm PA-C Unavailable [phone] Valery Veronica PA-C Unavailable [phone] Rey Tay MD Unavailable Rocky Zepeda DO Unavailable Philip Dumont MD Unavailable [phone] Encounter Details Date Type Department Care Team (Late st Contact Info) Description 10/24/2023 Telephone [facility] [address] [place] [address] Esha Grimm PA-C [id number] [place] [address] Social History Tobacco Use Types Packs/Day [...] week 03/10/2023 How often do you attend [facility] or rastafari services? 1 to 4 times per year [...] Answer Date Recorded PHQ-2 Score 0 10/25/2023 [facility] - Occupational Stress Questionnaire [...] exercise at this level? 30 min 03/10/2023 [place] Depression Scale Answer Date Recorded [place] Depression Score 5 01/14/2021 Last EPDS Self [...] encounter Miscellaneous Notes * Telephone Encounter - Emiliana Mcpherson RN - 10/24/2023 2:35 PM CDT Pt calls. She missed an appt today. She thought it was tomorrow. She missed an appt last week, her dtr was sick. She wants to get in sooner than what the carton lettering machine operator can get her in with. She has [...] 7:40 AM) Provider Visit with ROVERTO Sanchez [facility] ) [phone] Oct 25, 2023 11:30 AM (Arrive by 11:15 AM) New Nutrition with Nelly Mesa RD [facility] [place] ([facility]) [phone] Oct 27, 2023 4:00 PM (Arrive by 3:40 PM) Provider Visit with E Claudio, PA-C [facility] ([facility] ) [phone] Nov 03, 2023 8:00 AM (Arrive by 7:45 AM) Return Dermatology with Valery Veronica PA-C [facility] ([facility] ) [phone] November 29, 2023 8:00 AM (Arrive by 7:40 AM) Provider Visit with Esha Grimm PA-C [facility] ([facility] ) [phone] Jan 02, 2024 8:00 AM (Arrive by 7:45 AM) New Sleep Patient with Kelli Perez MD [facility] [place] ([facility] ) [phone] documented in this encounter Plan of Treatment Upcoming Encounters Date Type Department Care Team (Late st Contact Info) Description 01/09/2024 10:15 AM CDT Office Visit [facility] Neurology [facility] - [address], [address] [place] [address] Genny Hyman PA-C [facility] Epilepsy Care 5775 [facility] 255 [place], [place] 477[address] [place] [address] [facility] 300 [place], [place] [address]887 02/06/2024 10:00 AM CDT Office Visit [facility] [address] [address] Neil Kent MD 500 [place], [place] [address] 03/06/2024 3:00 PM CDT Office Visit [facility] Heart [facility] [address] [facility] [address] [place] [phone] Armani Radha E, FILLETER NEW GRAD RN [address] [place] [address] 03/07/2024 9:00 AM CDT Hospital Encounter [address] 5th [place] [phone] Rocky Zepeda DO 500 [place], [place] [address] 03/07/2024 9:00 AM CDT - 03/07/2024 9:30 AM CDT Surgery [address] [phone] Rocky Zepeda DO 500 [place], [place] 276835 Esophagoscopy, gastroscopy, duodenoscopy (EGD), combined Scheduled Procedures Name Priority Associated Diagnoses Date/Ti ct ESOPHAGOGASTRODUODENOSCOPY Eosinophilic esophagitis Esophageal dysphagia 03/07/2024 9:00 AM CDT documented as of this encounter Visit Diagnoses Not on filedocumented in this encounter Additional Health Concerns Assessment Noted Time PHQ-9 Depression Total Score: 4 06/20/20 23 8:40 AM SKIN PASS OPERATOR documented as of this encounter Care Teams Patient Relations Specialist Relationship Specialty Start Date End Date Esha rGimm PA-C [address] [place] [address] PCP - General Family Medicine 05/04/23 Diana Desir [facility] [address] [place] [address] Pharmacist Pharmacist 04/17/21 Rain Galaviz PA-C [address] [place] [address] [address] [place] [address] Physician Welt Stitch Cleaner Dermatology 04/28/21 Tavia Wyatt MD [address] [place] [address] [address] [place] [address] Dermatology 07/14/21 Erica Farrell APRN NEW GRAD RN [address] [place], [place] 3[address] Nurse Practitioner Cardiovascular Disease 09/09/21 Rich Barrett MD [address] [place] [address] 505445 Physician Ophthalmology 01/21/22 Neil Kent MD [address] [place] [address] 609[address] Dermatology 02/24/22 [facility] [address] [place] [address]806 Assigned [place] Pharmacist 04/07/22 Livan Sharif MD [address], [facility]00 [place] 23[address] Cardiovascular Disease 05/14/22 Catherine Cm MD [address] [facility] [place] [address] Cardiovascular Disease 07/21/22 Valery Veronica PA-C [address] [place] [address] Physician Welt Stitch Cleaner Dermatology 07/21/22 Brea Quinn APRN NEW GRAD RN 500 [place] [address] Nurse Practitioner Dermatology 09/21/22 Brea Quinn APRN NEW GRAD RN 6401 [place] [address] Assigned Surgical Provider 10/09/22 [place] [address] [facility] 300 [place] [address] Assigned Musculoskeletal Provider 10/09/22 Alfonso Renteria MD 5775 [facility] 200 [place] [address] Assigned Neuroscience Provider 04/02/23 Radha Lomeli APRN NEW GRAD RN [address]405 [place] 7328400 [place] [address] Assigned Heart and Vascular Provider 05/28/23 Jelena David OD [address] [place] [address] Ophthalmology 06/15/23 Pao Joseph, VJ Personal Advocate & Liaison (PAL) Nurse 08/01/23 11/07/23 Esha Grimm PA-C [address] [place] [address] Assigned PCP 07/16/23 Valery Veronica PA-C [address] [place] [address] Physician Welt Stitch Cleaner Dermatology 09/19/23 Rey Tay MD [address] [place] [address] Gastroenterology 09/20/23 Rocky Zepeda DO [address] [place] [address] Physician Gastroenterology 09/20/23 Philip Dumont MD [address] [place] [address] Physician Ophthalmology 09/22/23 documented as of this encounter
--- OUTSIDE RECORDS SUMMARY | 2024-01-07 18:08 | XMS_ITS | Encounter Summary ---
Author Organization [place] Address [address] [place] [address] Care Team Providers Care Stagecraft Professor Name Role Phone Thang Diana [place] [facility] Unavailable [phone] Rain Galaviz PA-C Unavailable Tavia Wyatt MD Unavailable Unavailable Erica Farrell APRN LOOK OUT TOWER FIRE WATCHER Unavailable Rich Barrett MD Unavailable Neil Kent MD Unavailable Diana Desir Stanislav [facility] Unavailable [phone] Livan Sharif MD Unavailable Catherine Cm MD Unavailable + Valery Veronica PA-C Unavailable [phone] Brea Quinn OLIVE GROWER LOOK OUT TOWER FIRE WATCHER Unavailable Brea Quinn OLIVE GROWER LOOK OUT TOWER FIRE WATCHER Unavailable Jose Francisco Johnson MD Unavailable Alfonso Renteria MD Unavailable + [phone] Esha Grimm PA-C Primary Care Provider Radha Lomeli OLIVE GROWER LOOK OUT TOWER FIRE WATCHER Unavailable [phone] Jelena David OD Unavailable Pao Joseph RN Unavailable Unavailable Esha Grimm PA-C Unavailable Valery Veronica PA-C Unavailable [phone] Rey Tay MD Unavailable Duane Rocky DO Unavailable Philip Dumont MD Unavailable [phone] Reason for Visit * Reason Onset Date Comments Procedure 10/25/2023 EGD Encounter Details Date Type Department Care Team (Late st Contact Info) Description 10/25/2023 Telephone [facility] [address]th [place] [address] None Procedure (EGD) Social History [...] How often do you attend chur or confucianism services? 1 to 4 times per year [...] Answer Date Recorded PHQ-2 Score 0 10/25/2023 [facility] of Occupat ional Health - Occupational Stress [...] exercise at this level? 30 min 03/10/2023 [place] Depression Scale Answer Date Recorded [place] Depression Score 5 01/14/2021 Last EPDS [...] Endoscopy [EGD] Date: 01/01 Location: Ambulatory [facility] [place]; [address] [place] [address] Surgeon: Duane Rescheduled: Yes, Procedure: Upper Endoscopy [EGD] Date: 12/18 Location: [facility] [place]; [address] [place] [address] Surgeon: Duane Sedation Level Scheduled MAC , [...] No Restrictions No MG ASC No [facility] ASC with exceptions Hospital Only OR Only [...] patients BMI > 40 and scheduling location UPU? No Do you take an injectable medication [...] No BMI > 40? No Preferred Pharmacy: [id number] - [place], [place] - [address] [facility] [id number] Final Scheduling Details Procedure scheduled Upper endoscopy [...] Office Visit [facility] Neurology [address], [address] [place] [address] Genny Hyman PA-C [facility] Epilepsy Care 5775 [facility] 255 [place] [address] [place] [address] [place] [address] 02/06/2024 10:00 AM CDT Office Visit [facility] [address] [address] Neil Kent MD 500 [place] [address] 03/06/2024 3:00 PM CDT Office [facility] [address] [facility] [address] [place] [phone] Radha Lomeli, OLIVE GROWER LOOK OUT TOWER FIRE WATCHER 6405 [facility] [address] [place] [address] 03/07/2024 9:00 AM CDT Hospital Encounter [address] 5th [place] [phone] Rocky Zepeda DO 500 [place] [address] 03/07/2024 9:00 AM CDT - 03/07/2024 9:30 AM CDT Surgery [address] [phone] Rocky Zepeda DO 500 [place], [place] [address] Esophagoscopy, gastroscopy, duodenoscopy (EGD), combined Scheduled Procedures Name Priority Associated Diagnoses Date/Ti ct ESOPHAGOGASTRODUODENOSCOPY Eosinophilic esophagitis Esophageal dysphagia 03/07/2024 9:00 AM CDT documented as of this encounter Visit Diagnoses Not on filedocumented in this encounter Additional Health Concerns Assessment Noted Time PHQ-9 Depression Total Score: 4 06/20/20 23 8:40 AM GLOBAL MARKETING OPERATIONS MANAGER documented as of this encounter Care Teams Stagecraft Professor Relationship Specialty Start Date End Date Esha Grimm PA-C [address] [place] [phone] PCP - General Family Medicine 05/04/23 [facility] [address] [place] [address] Pharmacist Pharmacist 04/17/21 Rain Galaviz PA-C [address] [place] [address] [address] [place] [address] Physician Software Manager Dermatology 04/28/21 Tavia Wyatt MD [address] [place] [address] [address] [place] [facility] [place] [address] Dermatology 07/14/21 Erica Farrell APRN LOOK OUT TOWER FIRE WATCHER [address] [place] [address] Nurse Practitioner Cardiovascular Disease 09/09/21 Rich Barrett MD [address] [place] [address] 9A [place], [place] [address]145 Physician Ophthalmology 01/21/22 Neil Kent MD 500 [place] [address] Dermatology 02/24/22 [facility] [address] [place] [address] Assigned MTM Pharmacist 04/07/22 Livan Sharif MD [address] [place] [address] [place] 6657[address] Cardiovascular Disease 05/14/22 Catherine Cm MD [address] [place] [address] [place] [address] Cardiovascular Disease 07/21/22 Valery Veronica PA-C 909 [place] [address] Physician Software Manager Dermatology 07/21/22 Brea Quinn APRN LOOK OUT TOWER FIRE WATCHER 500 [place] [address] Nurse Practitioner Dermatology 09/21/22 Brea Quinn APRN LOOK OUT TOWER FIRE WATCHER 6401 [facility] [place] [address] Assigned Surgical Provider 10/09/22 [place] [address] [address] [facility] 300 [place] [address] Assigned Musculoskeletal Provider 10/09/22 Alfonso Renteria MD 5775 [facility] 200 [place] [address] Assigned Neuroscience Provider 04/02/23 Radha Lomeli APRN LOOK OUT TOWER FIRE WATCHER 6405 [facility] [address] [place] [address] Assigned Heart and Vascular Provider 05/28/23 Jelena David OD 3305 [facility] [place] [phone] Ophthalmology 06/15/23 Pao Joseph, VJ Personal Advocate & Liaison (PAL) Nurse 08/01/23 11/07/23 Esha Grimm PA-C [address] [place] [address] Assigned PCP 07/16/23 Valery Veronica PAUcheC 9 [place] [address] Physician Software Manager Dermatology 09/19/23 Rey Tay MD [address] [place] [address] MD Gastroenterology 09/20/23 Rocky Zepeda DO [address] [place] [address]1205 Physician Gastroenterology 09/20/23 Philip Dumont MD [address] [place] [address] Physician Ophthalmology 09/22/23 documented as of this encounter
--- OUTSIDE RECORDS SUMMARY | 2024-01-07 18:08 | XMS_ITS | Encounter Summary ---
Author Organization [facility] Address [address] [place] [address] Care Team Providers Care Calender Tender Name Role Phone Thang Diana [place] [facility] Unavailable [phone] Rain Galaviz PA-C Unavailable Tavia Wyatt MD Unavailable Unavailable Erica Farrell APRN SUSPENSION CORD TIER Unavailable Rich Barrett MD Unavailable Neil Kent MD Unavailable Diana Desir Stanislav [facility] Unavailable [phone] Livan Sharif MD Unavailable Catherine Cm MD Unavailable + Valery Veronica PA-C Unavailable [phone] Brea Quinn DRAPERY SEWER HAND SUSPENSION CORD TIER Unavailable Bera Quinn DRAPERY SEWER HAND SUSPENSION CORD TIER Unavailable Jose Francisco Johnson MD Unavailable Alfonso Renteria MD Unavailable + [phone] Esha Grimm PA-C Primary Care Provider [phone] Radha Lomeli DRAPERY SEWER HAND SUSPENSION CORD TIER Unavailable [phone] Jelena David OD Unavailable [phone] Pao Joseph RN Unavailable Unavailable Esha Grimm Adam LAYNE Unavailable [phone] Valery Veronica PA-C Unavailable [phone] Rey Tay MD Unavailable Rocky Zepeda Unavailable Philip Dumont MD Unavailable [phone] Reason for Visit * Reason Comments Urgent Care Pt says she's having sensation of tongue swelling and tiredness today. Pt just started new vitamins, wondering if that's the cause Encounter Details Date Type Department Care Team (Late st Contact Info) Description 10/26/2023 6:35 PM CDT Office Visit [facility] [place] [address] [place] [address] Pao Mullen, DRAPERY SEWER HAND [facility] [address] [place] [address] Social History Tobacco Use Types Packs/Day Years [...] often do you attend chur ch or amish services? 1 to 4 times per year [...] Recorded PHQ-2 Score 0 10/25/2023 [facility] - Occupational Stress Questionnaire Answer Date Recorded [...] exercise at this level? 30 min 03/10/2023 [place] Depression Scale Answer Date Recorded [place] Depression Score 5 01/14/2021 Last EPDS Self [...] Office Visit [facility] [place] [address] [facility], [address] [place] [address] Genny Hyman PA-C [facility] [address] [facility] [address] [place] [address] [place] [address] [facility] [address] [place], [place] [address]87 02/06/2024 10:00 AM CDT Office [facility] [address] [phone] Neil Kent MD 500 [place] [address] 03/06/2024 3:00 PM CDT Office Visit [facility] [address] [facility] [address] [place] [address] Radha Lomeli, DRAPERY SEWER HAND SUSPENSION CORD TIER [address] [facility] [address] [place], [place] [address] 03/07/2024 9:00 AM CDT Hospital Encounter [address] [phone] Rocky Zepeda DO 500 [place] [address] 03/07/2024 9:00 AM CDT - 03/07/2024 9:30 AM CDT Surgery [address] [phone] Rocky Zepeda DO 500 [place], [place] 79[address] Esophagoscopy, gastroscopy, duodenoscopy (EGD), combined Scheduled Procedures Name Priority Associated Diagnoses Date/Ti id ESOPHAGOGASTRODUODENOSCOPY Eosinophilic esophagitis Esophageal dysphagia 03/07/2024 9:00 AM CDT documented as of this encounter Visit Diagnoses Not on filedocumented in this encounter Additional Health Concerns Assessment Noted Time PHQ-9 Depression Total Score: 4 06/20/20 23 8:40 AM AS400 CONSULTANT documented as of this encounter Care Teams Calender Tender Relationship Specialty Start Date End Date Esha Grimm PA-C [address] [place] [address] PCP - General Family Medicine 05/04/23 Diana Desir, [facility] 3033 [place] [address] Pharmacist Pharmacist 04/17/21 Rain Galaviz PA-C [address] [place] [address] [address] [facility] [place] [place] [address] Physician Principal Process Engineer Dermatology 04/28/21 Tavia Wyatt MD [address] [place] [address] [address] [facility] [facility] [address] Dermatology 07/14/21 Erica Farrell APRN SUSPENSION CORD TIER [address] [facility] [address] [place] [address] Nurse Practitioner Cardiovascular Disease 09/09/21 Rich Barrett MD [address] 6969[address] Physician Ophthalmology 01/21/22 Neil Kent MD 500 [place], [place] [phone] Dermatology 02/24/22 Diana Desir, [facility] [address] [place], [place] [phone] Assigned MTM Pharmacist 04/07/22 Livan Sharif MD [address] [facility] [facility] [address] [place], [place] 4766[address] Cardiovascular Disease 05/14/22 Catherine Cm MD [address] [facility] [place], [place] [address]485 Cardiovascular Disease 07/21/22 Valery Veronica, PA-C [address] [place] [address]1945 Physician Principal Process Engineer Dermatology 07/21/22 Brea Quinn APRN SUSPENSION CORD TIER 500 [place], [place] 703295 Nurse Practitioner Dermatology 09/21/22 Brea Quinn APRN SUSPENSION CORD TIER [address] [place] [address] 210782 Assigned Surgical Provider 10/09/22 [place] [address] [place] [facility] 300 [place], [place] 9[address]37 Assigned Musculoskeletal Provider 10/09/22 Alfonso Renteria MD [address] [facility] 200 [place], [place] 568966 Assigned Neuroscience Provider 04/02/23 Radha Lomeli APRN SUSPENSION CORD TIER [address] [place] [address] Assigned Heart and Vascular Provider 05/28/23 Jelena David OD [address] [facility] [place] [address] MD Ophthalmology 06/15/23 Pao Joseph, VJ Personal Advocate & Liaison (PAL) Nurse 08/01/23 11/07/23 Esha Grimm PA-C [address] [place] [phone] Assigned PCP 07/16/23 Valery Veronica PA-C [address] [place] [address] Physician Principal Process Engineer Dermatology 09/19/23 Rey Tay MD [address] [place] [address] 616165 Gastroenterology 09/20/23 Rocky Zepeda DO [address] [place] [address] 352135 Physician Gastroenterology 09/20/23 Philip Dumont MD [address] [place] [address] 089145 Physician Ophthalmology 09/22/23 documented as of this encounter
--- OUTSIDE RECORDS SUMMARY | 2024-01-07 18:08 | XMS_ITS | Encounter Summary ---
Author Organization [facility] Address [address] [place] [address] Care Team Providers Care Supervisor Printing Shop Name Role Phone Thang Diana [place] [facility] Unavailable [phone] Rain Galaviz PA-C Unavailable Tavia Wyatt MD Unavailable Unavailable Erica Farrell APRN MEDIA REPORTER Unavailable Rich Barrett MD Unavailable Neil Kent MD Unavailable Diana Desir Stanislav [facility] Unavailable [phone] Livan Sharif MD Unavailable Catherine Cm MD Unavailable + Valery Veronica PA-C Unavailable [phone] Brea Quinn FROG FARMER MEDIA REPORTER Unavailable Brea Quinn FROG FARMER MEDIA REPORTER Unavailable [phone] Jose Francisco Johnson MD Unavailable Alfonso Renteria MD Unavailable + [phone] Esha Grimm PA-C Primary Care Provider Radha Lomeli FROG FARMER MEDIA REPORTER Unavailable [phone] Jelena David OD Unavailable Pao Joseph RN Unavailable Unavailable Esha Grimm PA-C Unavailable [phone] Valery Veronica PA-C Unavailable Rey Tay MD Unavailable Duane Rockyanne [place] Unavailable Philip Dumont MD Unavailable [phone] Reason for Visit * Reason Comments Consult Encounter Details Date Type Department Care Team (Latest Contact Info) Description 10/25/2023 11:30 AM CDT Virtual Visit [facility] [address]th [place] [address] Nelly Mesa, RD 9 [place] [address] Eosinophilic esophagitis (Primary Dx); Esophageal [...] Answer Date Recorded PHQ-2 Score 0 10/25/2023 [facility] - Occupational Stress Questionnaire [...] exercise at this level? 30 min 03/10/2023 [place] Depression Scale Answer Date Recorded [place] Depression Score 5 01/14/2021 Last EPDS Self [...] weeks before your next endoscopy. --discontinue eating mongolian yogurt. Okay to have a non dairy [...] scan food labels while shopping such as 591wed or [employer] yolanda. If eating out, then look ahead on websites to review menu items and also can call restaurants aheadof time to find out what they have that is gluten and milk free or if they are able to make adjustments to some menu items. 6. [employer] has many easy to prepare recipes look under Simple Factor recipes for the easier to prepare recipes. There are many gluten free and dairy free recipes too (look under those headings) but not all on this site are gluten and milk free. One website with some allergen free recipes is [employer]itar. A couple of other resources for allergy [...] endoscopy. For follow up appointments, please call [phone]. Thank you, Nelly Mesa MS, RD, LD documented in this encounter Progress Notes * Nelly Mesa RD - 10/25/2023 11:30 AM CDT Virtual Visit Details Type of service: Video Visit Video Start Time: 11:35 AM Video End Time: 12:18 PM Originating Location (pt. Location): Home Distant Location (provider location): Off-site Platform used for Video Visit: [facility] Outpatient Medical Nutrition Therapy Time Spent: [...] ingredient free except she has been eating mongolian yogurt. She has been trying to eat better and meal prep and eat a higher protein diet. She recently started drinking [employer] protein drinks and energy booster and taking some vitamin supplements. She double checked that the supplements are gluten free, dairy free. Her protein drink container says contains milk so she call [employer] and was toldthat her drink doesn't contain [...] GF diet Meal Food Breakfast Overnight oats, mongolian yogurt with GF granola and fruit or [...] before you have another endoscopy. --discontinue eating mongolian yogurt. Okay to have a non dairy [...] scan food labels while shopping such as 591wed or [employer]. If eating out, then look ahead on websites to review menu items and also can call restaurants aheadof time to find out what they have that is gluten and milk free or if they are able to make adjustments to some menu items. 6. [employer] has many easy to prepare recipes look under Simple Factor recipes for the easier to prepare recipes. There are many gluten free and dairy free recipes too (look under those headings) but not all on this site are gluten and milk free. One website with some allergen free recipes is [employer]. A couple of other resources for allergy [...] patient encounters technical issues they should call [phone] :[id number]) How would you like to obtain your AVS? MyChart Are changes needed to the allergy or medication list? No Are refills needed on medications prescribed by this physician? NO Reason for visit: Consult Kiah Dominguez VVF documented in this encounter Plan of Treatment Upcoming Encounters Date Type Department Care Team (Late st Contact Info) Description 01/09/2024 10:15 AM CDT Office Visit [facility] Neurology [facility] [address] [facility], [address] [place] [phone] Genny Hyman PA-C [facility] Epilepsy [facility] 5775 [facility] 255 [place], [place] [address] [place] [address] [facility] 300 [place], [place] 7[address]197 02/06/2024 10:00 AM CDT Office Visit [facility] [address] [phone] Neil Kent MD 500 [place], [place] 4630[address] 03/06/2024 3:00 PM CDT Office Visit [facility] Heart [facility] [address] [facility] [address] [place] [phone] Radha Lomeli, FROG FARMER MEDIA REPORTER [address] [facility] [address] [place], [place] [address] 03/07/2024 9:00 AM CDT Hospital Encounter [facility] [address] 5th [place] [phone] Rocky Zepeda DO 500 [place], [place] 276895 03/07/2024 9:00 AM CDT - 03/07/2024 9:30 AM CDT [facility] [address] 5[address] [place] [phone] Duane Rocky, 500 [place] [address] Esophagoscopy, gastroscopy, duodenoscopy (EGD), combined Scheduled Procedures [...] Total Score: 4 06/20/20 23 8:40 AM ACCOUNTING RECRUITER documented as of this encounter Care Teams Supervisor Printing Shop Relationship Specialty Start Date End Date Esha Grimm PA-C [address] [place] [address] PCP - General Family Medicine 05/04/23 Diana Desir, [facility] [address] [facility] [place] [address] Pharmacist Pharmacist 04/17/21 Rain Galaviz PA-C [address] [place] [address] [address] [place] [address] Physician Meter And Service Line Inspector Dermatology 04/28/21 Tavia Wyatt MD [address] [place] [address] [place] [address] Dermatology 07/14/21 Erica Farrell APRN MEDIA REPORTER [address] [facility] [facility] [address] [place], [place] [address] Nurse Practitioner Cardiovascular Disease 09/09/21 Rich Barrett MD [address] [facility] 9A [place], [place] [address]395 Physician Ophthalmology 01/21/22 Neil Kent MD 500 [place], [place] 789175 Dermatology 02/24/22 Diana Desir, [facility] 3033 [place], [place] 831326 Assigned [facility] Pharmacist 04/07/22 Livan Sharif MD [address], [facility]00 [place] [address] Cardiovascular Disease 05/14/22 Catherine Cm MD [address] [facility] [address] 436895 Cardiovascular Disease 07/21/22 Valery Veronica, PA-C [address] [place] [address] 389895 Physician Meter And Service Line Inspector Dermatology 07/21/22 Brea Quinn APRN MEDIA REPORTER 500 [place], [place] 5935[address] Nurse Practitioner Dermatology 09/21/22 Brea Quinn APRN MEDIA REPORTER 6401 [facility] [place] 73[address] Assigned Surgical Provider 10/09/22 [place] [address] [facility] 300 [place] [address] Assigned Musculoskeletal Provider 10/09/22 Alfonso Renteria MD [address] [facility] 200 [place] [address] Assigned Neuroscience Provider 04/02/23 Radha Lomeli APRN MEDIA REPORTER [address] [facility] [address] [place] [address] Assigned Heart and Vascular Provider 05/28/23 Jelena David OD [address] [facility] [place] [address] Ophthalmology 06/15/23 Pao Joseph, RN Personal Advocate & Liaison (PAL) Nurse 08/01/23 11/07/23 Esha Grimm PA-C [address] [place] [phone] Assigned PCP 07/16/23 Valery Veronica PA-C [address] [place] [address] Physician Meter And Service Line Inspector Dermatology 09/19/23 Rey Tay MD [address] [place] [address] 640835 Gastroenterology 09/20/23 Rocky Zepeda DO [address] [place] [address] Physician Gastroenterology 09/20/23 Philip Dumont MD [address] [place] [address] Physician Ophthalmology 09/22/23 documented as of this encounter
--- OUTSIDE RECORDS SUMMARY | 2024-01-07 18:08 | XMS_ITS | Encounter Summary ---
Author Organization [facility] Address [address] [place] [address] Care Team Providers Care Sports Information Director Name Role Phone Thang Diana [place] [facility] Unavailable [phone] Rain Galaviz PA-C Unavailable Tavia Wyatt MD Unavailable Unavailable Erica Farrell APRN LOGGING TRACTOR OPERATOR SWAMP Unavailable Rich Barrett MD Unavailable Neil Kent MD Unavailable Diana Desir Stanislav [facility] Unavailable [phone] Livan Sharif MD Unavailable Catherine Cm MD Unavailable + Valery Veronica PA-C Unavailable [phone] Brea Quinn PHOTOVOLTAIC TECHNICIAN LOGGING TRACTOR OPERATOR SWAMP Unavailable Brea Quinn PHOTOVOLTAIC TECHNICIAN LOGGING TRACTOR OPERATOR SWAMP Unavailable Jose Francisco Johnson MD Unavailable Alfonso Renteria MD Unavailable + [phone] Esha Grimm PA-C Primary Care Provider [phone] Radha Lomeli PHOTOVOLTAIC TECHNICIAN LOGGING TRACTOR OPERATOR SWAMP Unavailable [phone] FrankieJelenae OD Unavailable Pao Joseph RN Unavailable Unavailable Jesus Grimmyllincoln [facility] Unavailable [phone] Valery VeronicaC Unavailable Rey Tay MD Unavailable Rocky Zepeda DO Unavailable Philip Dumont MD Unavailable [phone] Meredith Carrera PA-C Unavailable Neil Kent MD Unavailable Reason for Visit * Reason Onset Date Comments Call Back 10/24/2023 Encounter Details Date Type Department Care Team (Late st Contact Info) Description 10/24/2023 Telephone [facility] Gastroenterology Clinic [address]th [place] [address] Meredith Carrera PA-C [address] [place] [address] Call Back Social History Tobacco Use [...] Answer Date Recorded PHQ-2 Score 0 10/25/2023 [facility] - Occupational Stress Questionnaire [...] exercise at this level? 30 min 03/10/2023 [place] Depression Scale Answer Date Recorded [place] Depression Score 5 01/14/2021 Last EPDS Self [...] encounter Miscellaneous Notes * Telephone Encounter - Mindy Castano RN - 11/08/2023 9:21 AM CDT See alternate telephone encounter from 10/27/23. Nursing staff working with schedulers for appointment scheduling. * Telephone Encounter - Luzma Martinez - 10/24/2023 2:17 PM CDT [facility] Call Center Phone Message May a [...] Description 01/09/2024 10:15 AM CDT Office Visit [facility] Neurology [facility] - [address], [address] [place] [address] Genny Hyman PA-C [facility] [address] [facility] [address] [place] [address] [place] [address] [place] [address] 02/06/2024 10:00 AM CDT Office Visit [facility] [address] [phone] Neil Kent MD 500 [place], [place] [phone] 03/06/2024 3:00 PM CDT Office Visit [facility] Heart [facility] [address] [place] [phone] Radha Lomeli, PHOTOVOLTAIC TECHNICIAN LOGGING TRACTOR OPERATOR SWAMP [address] [place], [place] [address] 03/07/2024 9:00 AM CDT Hospital En[facility] [address] [place] [address] 5th [place] [phone] Rocky Zepeda DO 500 [place], [place] [address] 03/07/2024 9:00 AM CDT - 03/07/2024 9:30 AM CDT Surgery [facility] [address] [place] [address] 5th [place] [phone] Rocky Zepeda DO 500 [place], [place] 9[address] Esophagoscopy, gastroscopy, duodenoscopy (EGD), combined Scheduled Procedures Name Priority Associated Diagnoses Date/Ti nj ESOPHAGOGASTRODUODENOSCOPY Eosinophilic esophagitis Esophageal dysphagia 03/07/2024 9:00 AM CDT documented as of this encounter Visit Diagnoses Not on filedocumented in this encounter Additional Health Concerns Assessment Noted Time PHQ-9 Depression Total Score: 4 06/20/20 23 8:40 AM DRILL PRESS TENDER documented as of this encounter Care Teams Sports Information Director Relationship Specialty Start Date End Date Esha Grimm PA-C [address] [place] [address] PCP - General Family Medicine 05/04/23 Diana Desir, [facility] [address] [place], [place] [address] Pharmacist Pharmacist 04/17/21 Rain Galaviz PA-C [address] [place] [address] [address] [place] [address] Physician Franchise Sales Manager Dermatology 04/28/21 Tavia Wyatt MD [address] [place] [address] DR [facility] [facility] [place] [address] Dermatology 07/14/21 Erica Farrell APRN LOGGING TRACTOR OPERATOR SWAMP [address] [facility] [address] [place] [address] Nurse Practitioner Cardiovascular Disease 09/09/21 Rich Barrett MD 516 [facility] 9A [place], [place] [address] Physician Ophthalmology 01/21/22 Neil Kent MD 500 [place], [place] 6[address]455 Dermatology 02/24/22 Diana Desir, [facility] 3033 [place] [address] Assigned MTM Pharmacist 04/07/22 Livan Sharif MD [address], [facility] [address] [place] [address] Cardiovascular Disease 05/14/22 Catherine Cm MD [address] [facility] [address] [place], [place] [address] Cardiovascular Disease 07/21/22 Valery Veronica, PA-C 909 [place] [address] Physician Franchise Sales Manager Dermatology 07/21/22 Brea Quinn APRN LOGGING TRACTOR OPERATOR SWAMP 500 [place], [place] 6045[address] Nurse Practitioner Dermatology 09/21/22 Brea Quinn APRN LOGGING TRACTOR OPERATOR SWAMP 6401 [place] [address] Assigned Surgical Provider 10/09/22 [place] [address] [address] [facility] 300 [place] [address] Assigned Musculoskeletal Provider 10/09/22 Alfonso Renteria MD 5775 [facility] 200 [place] [address] Assigned Neuroscience Provider 04/02/23 Radha Lomeli APRN LOGGING TRACTOR OPERATOR SWAMP 6405 [facility] [address] [place] [address] Assigned Heart and Vascular Provider 05/28/23 Jelena David OD [address] [facility] [place] [address] MD Ophthalmology 06/15/23 Pao Joseph, VJ Personal Advocate & Liaison (PAL) Nurse 08/01/23 11/07/23 Esha Grimm PA-C [address] [place] [phone] Assigned PCP 07/16/23 Valery Veronica PA-C [address] [place] [address] Physician Franchise Sales Manager Dermatology 09/19/23 Rey Tay MD [address] [place] [address] 208525 Gastroenterology 09/20/23 Rocky Zepeda DO [address] [place] [address] 324775 Physician Gastroenterology 09/20/23 Philip Dumont MD [address] [place] [address] Physician Ophthalmology 09/22/23 Meredith Carrera PA-C [address] [place] [address] Assigned Gastroenterology Provider 11/01/23 Neil Kent MD [address] [place] [address] Dermatology 11/02/23 documented as of this encounter
--- OUTSIDE RECORDS SUMMARY | 2024-01-07 18:08 | XMS_ITS | Encounter Summary ---
Author Organization [place] Address [address] [place] [address] Care Team Providers Care Adjunct Teacher Name Role Phone Thang Diana [place] [facility] Unavailable Rain Galaviz PA-C Unavailable Tavia Wyatt MD Unavailable Unavailable Erica Farrell APRN LINE DIRECTOR Unavailable Rich Barrett MD Unavailable Neil Kent MD Unavailable Diana Desir Stanislav [facility] Unavailable [phone] Livan Sharif MD Unavailable Catherine Cm MD Unavailable + Valery Veronica PA-C Unavailable [phone] Brea Quinn PHARMACOVIGILANCE SPECIALIST LINE DIRECTOR Unavailable Brea Quinn PHARMACOVIGILANCE SPECIALIST LINE DIRECTOR Unavailable [phone] Jose Francisco Johnson MD Unavailable Alfonso Renteria MD Unavailable + [phone] Esha Grimm PA-C Primary Care Provider Radha Lomeli PHARMACOVIGILANCE SPECIALIST LINE DIRECTOR Unavailable [phone] FrankieJelenae OD Unavailable Pao Joseph RN Unavailable Unavailable Jesus Grimmyllincoln Medina PA-C Unavailable [phone] Valery Veronica PA-C Unavailable [phone] Rey Tay MD Unavailable Rocky Zepeda DO Unavailable Philip Dumont MD Unavailable [phone] Meredith Carrera PA-C Unavailable [phone] Neil Kent MD Unavailable Juan Pablo Emmanuel MD Unavailable [phone] Encounter Details Date Type Department Care Team (Late st Contact Info) Description 10/25/[address] [facility] [address] [place] [address] [place] Social History Tobacco [...] Answer Date Recorded PHQ-2 Score 0 10/25/2023 [facility] - Occupational Stress Questionnaire Answer Date [...] 01/09/2024 10:15 AM CDT Office Visit [facility] Neurology [address], [address] [place] [phone] Genny Hyman PAUcheC [facility] Epilepsy [facility] 5775 [facility] 255 [place], [place] [address] [place] [address] [facility] 300 [place], [place] [address] 02/06/2024 10:00 AM CDT Office Visit [facility] [address] [phone] Neil Kent MD 500 [place], [place] [address] 03/06/2024 3:00 PM CDT Office Visit [facility] Heart [facility] [address] [facility] [address] [place] [phone] Radha Lomeli APRN LINE DIRECTOR [address] [place] [address] 03/07/2024 9:00 AM CDT Hospital Encounter [facility] OR [place] 909 [facility] 5th [place] [phone] Rocky Zepeda, DO 500 [place], [place] [address] 03/07/2024 9:00 AM CDT - 03/07/2024 9:30 AM CDT Surgery [facility] 909 [facility] 5th [place] [phone] Rocky Zepeda, DO 500 [place], [place] [address] Esophagoscopy, gastroscopy, duodenoscopy (EGD), combined Scheduled Procedures [...] Total Score: 4 06/20/20 23 8:40 AM NEWS AGENT documented as of this encounter Care Teams Adjunct Teacher Relationship Specialty Start Date End Date Esha Grimm PA-C [address] [place] [address] PCP - General Family Medicine 05/04/23 Diana Desir [facility] [address] [place] [address] Pharmacist Pharmacist 04/17/21 Rain Galaviz PA-C [address] [place] [address] [address] [place] [address] Physician Technical Testing Engineer Dermatology 04/28/21 Tavia Wyatt MD [address] [place] [address] [address] [place] [address] Dermatology 07/14/21 Erica Farrell APRN LINE DIRECTOR [address] [place], [place] [address] Nurse Practitioner Cardiovascular Disease 09/09/21 Rich Barrett MD [address] [place] [address]485 Physician Ophthalmology 01/21/22 Neil Kent MD [address] [place] [address] 701845 Dermatology 02/24/22 [facility] [address] [place] [address] 6767[address] Assigned [place] Pharmacist 04/07/22 Livan Sharif MD [address], [facility]00 [place] [address] Cardiovascular Disease 05/14/22 Catherine Cm MD [address] [facility]00 [place] [address] Cardiovascular Disease 07/21/22 Valery Veronica PA-C [address] [place] [address] Physician Technical Testing Engineer Dermatology 07/21/22 Brea Quinn APRN LINE DIRECTOR 500 [place] [address] Nurse Practitioner Dermatology 09/21/22 Brea Quinn APRN LINE DIRECTOR 6401 [place] [address] Assigned Surgical Provider 10/09/22 [place] [address] [facility] 300 [place] [address] Assigned Musculoskeletal Provider 10/09/22 Alfonso Renteria MD 5775 [facility] 200 [place] [address] Assigned Neuroscience Provider 04/02/23 Radha oLmeli APRN LINE DIRECTOR [address] 4782400 [place] [address] Assigned Heart and Vascular Provider 05/28/23 Jelena David OD 3[address] [facility] [place] [address] Ophthalmology 06/15/23 Pao Joseph, VJ Personal Advocate & Liaison (PAL) Nurse 08/01/23 11/07/23 Esha Grimm PA-C [address] [place] [address] Assigned PCP 07/16/23 Valery Veronica PA-C [address] [place] [address] Physician Technical Testing Engineer Dermatology 09/19/23 Rey Tay MD [address] [place] [address] MD Gastroenterology 09/20/23 Rocky Zepeda DO [address] [place] [address] Physician Gastroenterology 09/20/23 Philip Dumont MD [address] [place] [address] Physician Ophthalmology 09/22/23 Meredith Carrera, PA-C [address] [place] [address] Assigned Gastroenterology Provider 11/01/23 Neil Kent MD [address] [place] [address] Dermatology 11/02/23 [place] [address] [place], [place] 5[address] Neurological Surgery 12/26/23 documented as of this encounter
--- OUTSIDE RECORDS SUMMARY | 2024-01-07 18:08 | XMS_ITS | Encounter Summary ---
Author Organization [facility] Address [address] [place] [address] Care Team Providers Care Java Software Developer Name Role Phone Thang Diana [place] [facility] Unavailable Rain Galaviz PA-C Unavailable Tavia Wyatt MD Unavailable Unavailable Erica Farrell APRN OUTSOLE CUTTER MACHINE Unavailable Rich Barrett MD Unavailable Neil Kent MD Unavailable Diana Desir Stanislav [facility] Unavailable [phone] Livan Sharif MD Unavailable Catherine Cm MD Unavailable + Valery Veronica PA-C Unavailable [phone] Brea Quinn DIRECTOR INTERNAL CONTROL OUTSOLE CUTTER MACHINE Unavailable Brea Quinn DIRECTOR INTERNAL CONTROL OUTSOLE CUTTER MACHINE Unavailable Jose Francisco Johnson MD Unavailable Alfonso Renteria MD Unavailable + [phone] Esha Grimm PA-C Primary Care Provider Radha Lomeli DIRECTOR INTERNAL CONTROL OUTSOLE CUTTER MACHINE Unavailable [phone] Frankie Jelena Templetone OD Unavailable Pao Joseph RN Unavailable Unavailable Esha Grimm PA-C Unavailable [phone] Valery Veronica PA-C Unavailable [phone] Rey Tay MD Unavailable Duane Rocky DO Unavailable Philip Dumont MD Unavailable [phone] Reason for Visit * Reason Onset Date Comments Appointment 10/25/2023 Encounter Details Date Type Department Care Team (Late st Contact Info) Description 10/25/2023 Telephone [facility] Gastroenterology Clinic [address] [place] [address] Meredith Carrera PA-C [address] [place] [address] Appointment Social History Tobacco Use Types [...] Score 0 10/25/2023 [facility] - Occupational Stress Questionnaire Answer Date [...] at this level? 30 min 03/10/2023 [place] Depression Scale Answer Date Recorded [place] Depression Score 5 01/14/2021 Last EPDS Self [...] in an abandoned building, in an overnight chcf, or couch-surfing.) Yes 07/14/2023 Are you worried [...] [place] Return date: 01/12/24 Specialty phone number: [phone] Additional appointment(s) needed: Additonal Notes: documented in this encounter Plan of Treatment Upcoming Encounters Date Type Department Care Team (Late st Contact Info) Description 01/09/2024 10:15 AM CDT Office Visit [facility] Neurology [address], [address] [place] [address] [address] Hyman PA-C [facility] Epilepsy Care 5775 [facility] 255 [place], [place] [address] [place] [address] [address] [place], [place] [address] 02/06/2024 10:00 AM CDT Office Visit [facility] [address] [phone] Neil Kent MD 500 [place] [address] 03/06/2024 3:00 PM CDT Office Visit [facility] Heart [facility] [address] [facility] [address] [place] [phone] Radha Lomeli, ARLENE OUTSOLE CUTTER MACHINE [address] [place] [address] 03/07/2024 9:00 AM CDT Hospital Encounter [address]th [place] [phone] Rocky Zepeda DO 500 [place] [address] 03/07/2024 9:00 AM CDT - 03/07/2024 9:30 AM CDT Surgery [address] [phone] Rocky Zepeda DO 500 [place] [address] Esophagoscopy, gastroscopy, duodenoscopy (EGD), combined Scheduled Procedures Name Priority Associated Diagnoses Date/Ti ar ESOPHAGOGASTRODUODENOSCOPY Eosinophilic esophagitis Esophageal dysphagia 03/07/2024 9:00 AM CDT documented as of this encounter Visit Diagnoses Not on filedocumented in this encounter Additional Health Concerns Assessment Noted Time PHQ-9 Depression Total Score: 4 06/20/20 23 8:40 AM 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 documented as of this encounter Care Teams Java Software Developer Relationship Specialty Start Date End Date Esha Grimm PA-C [address] [place] [phone] PCP - General Family Medicine 10/25/23 Diana Desir, [facility] [address] [place] [address] Pharmacist Pharmacist 04/17/21 Rain Galaviz PA-C [address] [place] [address] [address] [place] [address] Physician Director Plans Dermatology 04/28/21 Tavia Wyatt MD [address] [place] [address] [address] [place] [address] Dermatology 07/14/21 Erica Farrell APRN OUTSOLE CUTTER MACHINE [address] [place] [address] Nurse Practitioner Cardiovascular Disease 09/09/21 Rich Barrett MD 516 [facility] 9A [place], [place] [address] Physician Ophthalmology 01/21/22 Neil Kent MD 500 [place] [address] Dermatology 02/24/22 Diana Desir, [facility] [address] [place] [address] Assigned MTM Pharmacist 04/07/22 Livan Sharif MD [address] [place] [address]357[address] Cardiovascular Disease 05/14/22 Catherine Cm MD 6405 [facility] [address] [place] [address] Cardiovascular Disease 07/21/22 Valery Veronica, PAUcheC 909 [place] [address] Physician Director Plans Dermatology 07/21/22 Brea Quinn APRN OUTSOLE CUTTER MACHINE [address] [place] [address] Nurse Practitioner Dermatology 09/21/22 Brea Quinn APRN OUTSOLE CUTTER MACHINE 64[address] [facility] [place] [address] Assigned Surgical Provider 10/09/22 [place] [address] [facility] [facility] 300 [place] [address] Assigned Musculoskeletal Provider 10/09/22 Alfonso Renteria MD 5775 [facility] 200 [place] [address] Assigned Neuroscience Provider 04/02/23 Radha Lomeli APRN OUTSOLE CUTTER MACHINE 6405 [facility] [address] [place] [address] Assigned Heart and Vascular Provider 05/28/23 Jelena David OD [address] [facility] [place] [address] Ophthalmology 06/15/23 Pao Joseph, RN Personal Advocate & Liaison (PAL) Nurse 08/01/23 11/07/23 Ehsa Grimm PA-C [address] [place] [address] Assigned PCP 07/16/23 Valery Veronica PA-C [address] [place] [address] 223275 Physician Director Plans Dermatology 09/19/23 Rey Tay MD [address] [place] [address] [phone] Gastroenterology 09/20/23 Rocky Zepeda DO [address] [place] [address] 878165 Physician Gastroenterology 09/20/23 Philip [place] MD [address] [place] [address] 131685 Physician Ophthalmology 09/22/23 documented as of this encounter
--- OUTSIDE RECORDS SUMMARY | 2024-01-07 18:08 | XMS_ITS | Encounter Summary ---
Author Organization [place] Address [address] [place] [address] Care Team Providers Care Dx Board Operator Name Role Phone Thang Diana [place] [facility] Unavailable Rain Galaviz PA-C Unavailable Tavia Wyatt MD Unavailable Unavailable Erica Farrell APRN OVERNIGHT BABYSITTER Unavailable Rich Barrett MD Unavailable Neil Kent MD Unavailable Diana Desir Stanislav [facility] Unavailable [phone] Livan Sharif MD Unavailable Catherine Cm MD Unavailable + Valery Veronica PA-C Unavailable [phone] Brea Quinn LVN LPN OVERNIGHT BABYSITTER Unavailable Brea Quinn LVN LPN OVERNIGHT BABYSITTER Unavailable [phone] Jose Francisco Johnson MD Unavailable Alfonso Renteria MD Unavailable + [phone] Esha Grimm PA-C Primary Care Provider [phone] Radha Lomeli LVN LPN OVERNIGHT BABYSITTER Unavailable [phone] Jelena David OD Unavailable Pao Joseph RN Unavailable Unavailable Wicho Grimmlincoln Medina PA-C Unavailable Valery Veronica PA-C Unavailable [phone] Rey Tay MD Unavailable Rocky Zepeda Unavailable Philip Dumont MD Unavailable [phone] Reason for Referral * Diagnostic Imaging Ultrasound (Routine) - Pending Review Specialty Diagnoses / Procedures Referred By Contparviz t Referred To Contact Radiology. Diagnoses Epigastric pain Procedures US Abdomen Limited Lauren Claudio PA-C [address] [place] [address] Referral ID Status Reason Start Date Expiration Date V isits Requested Visits Authorized [id number] Pending Review 10/27/2023 10/26/2024 1 1 Reason for Visit * Reason Comments Abdominal Pain Pt started some leonor min has been experiencing a weird/swollen tongue sensation Encounter Details Date Type Department Care Team (Late st Contact Info) Description 10/27/2023 4:00 PM CDT Office Visit [facility] [id number] [place] [phone] Lauren Claudio PA-C [address] [place] [address] Epigastric pain (Primary Dx); Eosinophilic esophagitis; Hiatal [...] week 03/10/2023 How often do you attend [facility] or jainism services? 1 to 4 [...] Answer Date Recorded PHQ-2 Score 0 10/25/2023 [facility] [...] exercise at this level? 30 min 03/10/2023 Purling Depression Scale Answer Date Recorded Purling Depression Score 5 01/14/2021 Last EPDS Self [...] in an abandoned building, in an overnight jail, or couch-surfing.) Yes 07/14/2023 Are you worried [...] Repeat in December. Anxiety Refilled for patient. ANSWERER reviewed. Last refilled in July. - LORazepam [...] affected your ability to work? 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 Where in your body do you [...] Description 01/09/2024 10:15 AM CDT Office Visit [facility] [place] [address] [place] [address], [address] [place] [phone] Genny Hyman PA-C [facility] [address] [facility] [address] [place] [address] [place] [address] [place] [address] 02/06/2024 10:00 AM CDT Office Visit [facility] [address] [phone] Neil Kent MD 500 [place] [address] 03/06/2024 3:00 PM CDT Office Visit [facility] [address] [place] [address] Radha Lomeli, LVN LPN OVERNIGHT BABYSITTER [address] [place], [place] [address] 03/07/2024 9:00 AM CDT Hospital Encounter [address] [place] [phone] Rocky Zepeda DO 500 [place] [address] 03/07/2024 9:00 AM CDT - 03/07/2024 9:30 AM CDT Surgery [address] [phone] Rocky Zepeda DO 500 [place] [address] Esophagoscopy, gastroscopy, duodenoscopy (EGD), combined Scheduled Procedures Name Priority Associated Diagnoses Date/Ti wv ESOPHAGOGASTRODUODENOSCOPY Eosinophilic esophagitis Esophageal dysphagia 03/07/2024 9:00 AM CDT documented as of this encounter Procedures Procedure Name Priority Date/Time Associated Diagnosis Comments VITAMIN K Routine 10/27/2023 4:33 PM CDT Epigastric pain VITAMIN E Routine 10/27/2023 4:33 PM CDT Epigastric pain VITAMIN D DEFICIENCY SCREENING Routine 10/27/2023 4:33 PM CDT Epigastric pain VITAMIN B6 Routine 10/27/2023 4:33 PM CDT Epigastric pain VITAMIN A Routine 10/27/2023 4:33 PM CDT Epigastric pain LIPASE Routine 10/27/2023 4:33 PM CDT Epigastric [...] Routine 10/27/2023 4:33 PM CDT Epigastric pain documented in this encounter Results * US Abdomen Limited (11/24/2023 9:30 AM CDT) Anatomical Region Laterality Modality Abdomen/Pelvis Ultrasound Impressions 11/24/2023 4:03 PM CDT IMPRESSION: ??Fatty liver. Hepatomegaly. No gallstones identified. [facility] ID: ??[id number] Narrative 11/24/2023 4:03 PM CDT ULTRASOUND ABDOMEN [...] gallstones identified. [facility] ID: [id number] Lauren Claudio PA-C IMG US ORDERABLES * Lipase (10/27/2023 4:33 PM CDT) Lipase 44 13 - 60 U/L 10/29/2023 10:14 PM CDT U [facility] Blood BLOOD SPECIMEN / Unknown Venipuncture / Unknown 10/27/2023 4:33 PM CDT 10/27/2023 4:33 PM CDT Lauren Claudio PA-C LAB - BLOOD ORDERA BLES U [facility]ATORY [facility] [place] [facility] 500 [facility] J Building, [address] [place] [address] * IgA (10/27/2023 4:33 PM CDT) Immunoglobulin A 164 84 - 499 mg/dL 10/31/2023 12:31 PM CDT SPECIALTY CORE/PROT/END O Blood BLOOD SPECIMEN / Unknown Venipuncture / Unknown 10/27/2023 4:33 PM CDT 10/27/2023 4:33 PM CDT Lauren Claudio PA-C LAB - BLOOD ORDERA BLES SPECIALTY CORE/PROT/ENDO Specialty Core/Prot/Endo 500 [facility] [address] Building, Room [address] [address] * ESR: Erythrocyte sedimentation rate (10/27/2023 4:33 PM CDT) Erythrocyte Sedimentation Rate 8 0 - 20 mm/hr 10/27/2023 4:44 PM CDT CR LABORATORY Blood BLOOD SPECIMEN / Unknown Venipuncture / Unknown 10/27/2023 4:33 PM CDT 10/27/2023 4:33 PM CDT Lauren Claudio PA-C LAB - BLOOD ORDERA BLES CR LABORATORY [facility] [id number] [place] [address] (no room number, 1st floor of clinic) [place] [address], [facility] [phone] * CRP, inflammation (10/27/2023 4:33 PM CDT) CRP Inflammation <3.00 <5.00 mg/L 10/29/19 10:14 PM CDT [facility] Blood BLOOD SPECIMEN / Unknown Venipuncture / Unknown 10/27/2023 4:33 PM CDT 10/27/2023 4:33 PM CDT Lauren Claudio PA-C LAB - BLOOD ORDERA BLES U[facility]ORY [facility] [place] [facility] 500 [facility] [address] Building, [address] [phone], [facility] * Comprehensive metabolic panel (BMP + Alb, Alk Phos, ALT, AST, Total. Bili, TP) (10/27/2023 4:33 PM CDT) Sodium 138 135 - 145 mmol/L 10/29/2023 10:14 PM CDT [facility] Comment:Reference intervals for this test were updated on 04/05/2023 to more accurately reflect our healthy population. There may be differences in the flagging of prior results with similar values performed with this method. Interpretation of those prior results can be made in the context of the updated reference intervals. Potassium 4.0 3.4 - 5.3 mmol/L 10/29/2023 10:14 PM CDT [facility] Carbon Dioxide (CO2) 26 22 - 29 mmol/L 10/29/2023 10:14 PM CDT [facility] Anion Gap 10 7 - 15 mmol/L 10/29/2023 10:14 PM CDT [facility] Urea Nitrogen 10.8 6.0 - 20.0 mg/dL 10/29/2023 10:14 PM CDT [facility] Creatinine 0.76 0.51 - 0.95 mg/dL 10/29/2023 10:14 PM CDT [facility] GFR Estimate >90 >60 mL/min/1. 73m2 10/29/2023 10:14 PM CDT [facility] Calcium 9.7 8.6 - 10.0 mg/dL 10/29/2023 10:14 PM CDT [facility] Chloride 102 98 - 107 mmol/L 10/29/2023 10:14 PM CDT [facility] Glucose 73 70 - 99 mg/dL 10/29/2023 10:14 PM CDT [facility] Alkaline Phosphatase 54 40 - 150 U/L 10/29/2023 10:14 PM CDT [facility] Comment:Reference intervals for this test were updated on 05/24/2023 to more accurately reflect our healthy population. There may be differences in the flagging of prior results with similar values performed with this method. Interpretation of those prior results can be made in the context of the updated reference intervals. AST 19 0 - 45 U/L 10/29/2023 10:14 PM CDT [facility] Comment:Reference intervals for this test were updated on 12/20/2022 to more accurately reflect our healthy population. There may be differences in the flagging of prior results with similar values performed with this method. Interpretation of those prior results can be made in the context of the updated reference intervals. ALT 30 0 - 50 U/L 10/29/2023 10:14 PM CDT [facility] Comment:Reference intervals for this test were updated on 12/20/2022 to more accurately reflect our healthy population. There may be differences in the flagging of prior results with similar values performed with this method. Interpretation of those prior results can be made in the context of the updated reference intervals. Protein Total 7.8 6.4 - 8.3 g/dL 10/29/2023 10:14 PM CDT [facility] Albumin 4.7 3.5 - 5.2 g/dL 10/29/2023 10:14 PM CDT [facility] Bilirubin Total 0.3 <=1.2 mg/dL 10/29/2023 10:14 PM CDT [facility] Blood BLOOD SPECIMEN / Unknown Venipuncture / Unknown 10/27/2023 4:33 PM CDT 10/27/2023 4:33 PM CDT Lauren Claudio PA-C LAB - BLOOD ORDERA BLES [facility] [place] [facility] 500 [facility], [address] [phone] * Vitamin K (10/27/2023 4:33 PM CDT) [facility] Vitamin K 2.33 0.22 - 4.88 nmol/L 11/01/2023 10:50 AM CDT [facility] Comment: INTERPRETIVE INFORMATION: Vitamin K1, Serum Vitamin K concentration is reported as nanomoles per liter (nmol/L). To convert concentration to nanograms per milliliter (ng/mL), multiply the result by 0.45. This test was developed and its performance characteristics determined by [facility]. It has not been cleared or approved by the US Food and Drug Administration. This test was performed in a CLIA certified laboratory and is intended for clinical purposes. Performed By: [facility] [address] [place] [address] Bass Mechanism Maker: Johnny Smith MD, PhD CLIA Number: [id number] Blood BLOOD SPECIMEN / Unknown Venipuncture / Unknown 10/27/2023 4:33 PM CDT 10/27/2023 4:33 PM CDT Lauren Claudio PA-C LAB - BLOOD ORDERA BLES Performing Organization Address [facility]/ZIP Co de Phone Number [facility] [address] [place] [address], [facility] [phone] * Vitamin E (10/27/2023 4:33 PM CDT) Vitamin E 13.7 5.5 - 18.0 mg/L 10/31/2023 4:38 PM CDT [facility] Comment: This test was developed and its performance characteristics determined by [facility]. It has not been cleared or approved by the US Food and Drug Administration. This test was performed in a CLIA certified laboratory and is intended for clinical purposes. Vitamin E Gamma 0.4 0.0 - 6.0 mg/L 10/31/2023 4:38 PM CDT [facility] Comment: Performed By: [facility] [address] [place], [place] [id number] Bass Mechanism Maker: Johnny Smith MD, PhD CLIA Number: [id number] Blood BLOOD SPECIMEN / Unknown Venipuncture / Unknown 10/27/2023 4:33 PM CDT 10/27/2023 4:33 PM CDT Lauren Claudio PA-C LAB - BLOOD ORDERA BLES Performing Organization Address [facility] Co de Phone Number [facility] [address] [place] [phone], [facility] [phone] * (ABNORMAL) Vitamin B12 (10/27/2023 4:33 PM CDT) Vitamin B12 1,430(H) 232 - 1,245 pg/mL 10/29/2023 10:53 PM CDT [facility] Blood BLOOD SPECIMEN / Unknown Venipuncture / Unknown 10/27/2023 4:33 PM CDT 10/27/2023 4:33 PM CDT Lauren Claudio PA-C LAB - BLOOD ORDERA BLES [facility] [place] [facility] 500 [facility], Room [address] [place] [address] * (ABNORMAL) Vitamin B6 (10/27/2023 4:33 PM CDT) Vitamin B6 284.6(H) 20.0 - 125.0 nmol/L 10/31/2023 1:43 PM CDT [facility] Comment: INTERPRETIVE INFORMATION: Vitamin B6 (Pyridoxal 5-Phosphate) Pyridoxal 5'-phosphate measured in a specimen collected following an 8-hour or overnight fast accurately indicates vitamin B6 nutritional status. Non-fasting specimen concentration reflects recent vitamin intake. This test was developed and its performance characteristics determined by [facility]. It has not been cleared or approved by the US Food and Drug Administration. This test was performed in a CLIA certified laboratory and is intended for clinical purposes. Performed By: [facility] [address] [place] [address] Bass Mechanism Maker: Johnny Smith MD, PhD CLIA Number: [id number] Blood BLOOD SPECIMEN / Unknown Venipuncture / Unknown 10/27/2023 4:33 PM CDT 10/27/2023 4:33 PM CDT Lauren Claudio PA-C LAB - BLOOD ORDERA BLESylvia Performing Organization Address City/[facility]/ZIP Co de Phone Number [facility] [address] [place] [address], [facility] [phone] * Vitamin D Deficiency (10/27/2023 4:33 PM CDT) Vitamin D, Total (25-Hydroxy) 29 20 - 50 ng/mL 10/29/2023 10:14 PM CDT [facility] Comment:optimum levels Blood BLOOD SPECIMEN / Unknown Venipuncture / Unknown 10/27/2023 4:33 PM CDT 10/27/2023 4:33 PM CDT Narrative [facility] - 10/29/2023 10:14 PM CDT Season, race, dietary intake, and treatment affect the concentration of 62-wqupzjk-Wiadehl D. Values may decrease during winter months and increase during summer months. Vitamin D determination is routinely performed by an immunoassay specific for 25 hydroxyvitamin D3. ??If an individual is on vitamin D2(ergocalciferol) supplementation, please specify 25 [place] vitamin D2 and D3 level determination by LCMSMS test VITD23. Lauren Claudio PA-C LAB - BLOOD ORDERA BLES LABORATORY [facility] [place] [facility] 500 [facility], [address] [place] [address] * Vitamin A (10/27/2023 4:33 PM CDT) [facility] Vitamin A 0.78 0.30 - 1.20 mg/L 10/31/2023 4:38 PM CDT [facility] Retinol Palmitate 0.03 0.00 - 0.10 mg/L 10/31/2023 4:38 PM CDT [facility] Vitamin A Interp Normal 10/31/19 24 4:38 PM CDT [facility] Comment: This test was developed and its performance characteristics determined by [facility]. It has not been cleared or approved by the US Food and Drug Administration. This test was performed in a CLIA certified laboratory and is intended for clinical purposes. Performed By: [facility] [address] [place] [address] Bass Mechanism Maker: Johnny Smith MD, PhD CLIA Number: [id number] Blood BLOOD SPECIMEN / Unknown Venipuncture / Unknown 10/27/2023 4:33 PM CDT 10/27/2023 4:33 PM CDT Lauren Claudio PA-C LAB - BLOOD ORDERA BLES Performing Organization Address City/[facility]/ZIP Co de Phone Number [facility] [address] [place] [phone], [facility] [phone] documented in this encounter Visit Diagnoses Diagnosis Epigastric pain- Primary Abdominal pain, epigastric Eosinophilic esophagitis Hiatal hernia Diaphragmatic hernia without mention of obstruction or gangrene Anxiety Anxiety state, unspecified Vitamin deficiency Unspecified vitamin deficiency Breast tenderness Mastodynia Dizziness Dizziness and giddiness Shakiness Abnormal involuntary movements Epigastric pain Abdominal pain, epigastric Eosinophilic esophagitis Esophageal dysphagia Dysphagia, pharyngoesophageal phase documented in this encounter Additional Health Concerns Assessment Noted Time PHQ-9 Depression Total Score: 4 06/20/20 23 8:40 AM CONCRETE PAVER documented as of this encounter Care Teams Dx Board Operator Relationship Specialty Start Date End Date Esha Grimm PA-C [address] [place] [phone] PCP - General Family Medicine 05/04/23 Diana Desir, [facility] [address] [place] [address] Pharmacist Pharmacist 04/17/21 Rain Galaviz PA-C [address] [place] [address] [address] [facility] [place] [address] Physician Blanket Weaver Dermatology 04/28/21 Tavia Wyatt MD [address] [place] [address] [address] [facility] [place] [address] Dermatology 07/14/21 Erica Farrell APRN OVERNIGHT BABYSITTER [address] [facility] [address] [place] [address] Nurse Practitioner Cardiovascular Disease 09/09/21 Rich Barrett MD [address] [facility] [address] [place], [place] [address] Physician Ophthalmology 01/21/22 Neil Kent MD 500 [place], [place] [address] Dermatology 02/24/22 Diana Desir, [facility] [address] [place] [address] Assigned MTM Pharmacist 04/07/22 Livan Sharif MD [address] [facility] [address] [facility] [address] [place], [place] [phone] Cardiovascular Disease 05/14/22 Catherine Cm MD [address] [facility] [address] [place], [place] [address] Cardiovascular Disease 07/21/22 Valery Veronica, PAUche[facility] [address], [place] [address] Physician Blanket Weaver Dermatology 07/21/22 Brea Quinn APRN OVERNIGHT BABYSITTER [address] [place], [place] [address] Nurse Practitioner Dermatology 09/21/22 Brea Quinn APRN OVERNIGHT BABYSITTER [address] [place] [address] Assigned Surgical Provider 10/09/22 [place] [address] [address] [facility] [address] [place] [address] Assigned Musculoskeletal Provider 10/09/22 Alfonso Renteria MD [address] [facility] [address] [place] [address] Assigned Neuroscience Provider 04/02/23 Radha Lomeli APRN OVERNIGHT BABYSITTER [address] [place] [address] Assigned Heart and Vascular Provider 05/28/23 Jelena David OD [address] [facility] [place] [address] Ophthalmology 06/15/23 Pao Joseph, VJ Personal Advocate & Liaison (PAL) Nurse 08/01/23 11/07/23 Esha Grimm PA-C [address] [place] [phone] Assigned PCP 07/16/23 Valery Veronica PA-C [address], [place] [address] Physician Blanket Weaver Dermatology 09/19/23 Rey Tay MD [address] [place] [address]84[address] Gastroenterology 09/20/23 Rocky Zepeda DO [address] [place] [address] Physician Gastroenterology 09/20/23 Philip Dumont MD [address] [place] [address] Physician Ophthalmology 09/22/23 documented as of this encounter
--- OUTSIDE RECORDS SUMMARY | 2024-01-07 18:08 | XMS_ITS | Encounter Summary ---
Author Organization [facility] Address [address] [place] [address] Care Team Providers Care Bond Manager Name Role Phone Thang Diana [place] [facility] Unavailable Rain Galaviz PA-C Unavailable Tavia Wyatt MD Unavailable Unavailable Erica Farrell APRN HISTOLOGIC AIDE Unavailable Rich Barrett MD Unavailable Neil Kent MD Unavailable Diana Desir Stanislav [facility] Unavailable [phone] Livan Sharif MD Unavailable Catherine Cm MD Unavailable + Valery Veronica PA-C Unavailable [phone] Brea Quinn INTERMEDIATE DESIGNER HISTOLOGIC AIDE Unavailable Brea Quinn INTERMEDIATE DESIGNER HISTOLOGIC AIDE Unavailable Jose Francisco Johnson MD Unavailable Alfonso Renteria MD Unavailable + [phone] Esha Grimm PA-C Primary Care Provider [phone] Radha Lomeli INTERMEDIATE DESIGNER HISTOLOGIC AIDE Unavailable [phone] Jelena David OD Unavailable Pao Joseph RN Unavailable Unavailable Esha Grimm PA-C Unavailable [phone] Valery Veronica PA-C Unavailable [phone] Rey Tay MD Unavailable Duane Rocky DO Unavailable Philip Dumont MD Unavailable [phone] Encounter Details Date Type Department Care [...] 03/10/2023 How often do you attend [facility] or sabianism services? 1 to 4 times [...] Answer Date Recorded PHQ-2 Score 0 10/25/2023 [facility] [place] of Occupat ional Health - Occupational Stress [...] Description 01/09/2024 10:15 AM CDT Office Visit [facility] Neurology [facility] [address] [facility], [address] [place] [phone] Genny Hyman PA-C [facility] Epilepsy [facility] [address] [facility] 255 [place], [place] 7[address] [place] [address] [facility] 300 [place], [place] 24[address]77 02/06/2024 10:00 AM CDT Office Visit [facility] [address] [phone] Neil Kent MD 500 [place], [place] [phone] 03/06/2024 3:00 PM CDT Office Visit [facility] Heart [facility] [address] [facility] [address] [place] [phone] Radha Lomeli, ARLENE HISTOLOGIC AIDE [address] [facility] [facility] [address] [place], [place] [address] 03/07/2024 9:00 AM CDT Hospital Encounter [facility] [address] [facility] [address] 5th [place] [phone] Rocky Zepeda DO 500 [place], [place] [phone] 03/07/2024 9:00 AM CDT - 03/07/2024 9:30 AM CDT Surgery [facility] 909 [facility] 5th [place] [phone] Zepeda Rocky, DO 500 [place] [address] Esophagoscopy, gastroscopy, duodenoscopy (EGD), combined Scheduled Procedures Name Priority Associated Diagnoses Date/Ti sc ESOPHAGOGASTRODUODENOSCOPY Eosinophilic esophagitis Esophageal dysphagia 03/07/2024 9:00 AM CDT documented as of this encounter Visit Diagnoses Not on filedocumented in this encounter Additional Health Concerns Assessment Noted Time PHQ-9 Depression Total Score: 4 06/20/20 23 8: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 documented as of this encounter Care Teams Bond Manager Relationship Specialty Start Date End Date Esha Grimm PA-C [address] [place] [address] PCP - General Family Medicine 05/04/23 Diana Desir, [facility] [address] [place] [address] Pharmacist Pharmacist 04/17/21 Rain Galaviz PA-C [address] [place] [address] [place]UTSON [address] Physician Nitroglycerin Distributor Dermatology 04/28/21 Tavia Wyatt MD [address] [place] [address] [place]UTSON [address] Dermatology 07/14/21 Erica Farrell APRN HISTOLOGIC AIDE 6405 [facility] [address] [place] [address] Nurse Practitioner Cardiovascular Disease 09/09/21 Rich Barrett MD 516 [facility] 9A [place], [place] 843[address] Physician Ophthalmology 01/21/22 Neil Kent MD 500 [place], [place] 519575 Dermatology 02/24/22 Diana Desir, [facility] [address] [place], [place] [address]86 Assigned [place] Pharmacist 04/07/22 Livan Sharif MD [address] [facility]00 [place], [place] 993[address] Cardiovascular Disease 05/14/22 Catherine Cm MD [address] 220785 Cardiovascular Disease 07/21/22 Valery Veronica, PA-C 909 [place], [place] 208315 Physician Nitroglycerin Distributor Dermatology 07/21/22 Brea Quinn APRN HISTOLOGIC AIDE 500 [place], [place] 356295 Nurse Practitioner Dermatology 09/21/22 Brea Quinn APRN HISTOLOGIC AIDE 6401 [facility] [place] [address]172 Assigned Surgical Provider 10/09/22 [place] [address] [address] [facility] 300 [place] [address] Assigned Musculoskeletal Provider 10/09/22 Alfonso Renteria MD [address] [facility] 200 [place], [place] 7[address]206 Assigned Neuroscience Provider 04/02/23 Radha Lomeli APRN HISTOLOGIC AIDE 6405 [facility] [address] [place] 326395 Assigned Heart and Vascular Provider 05/28/23 Jelena David OD [address] [facility] [address] [place] [id number] Ophthalmology 06/15/23 Pao Joesph, VJ Personal Advocate & Liaison (PAL) Nurse 08/01/23 11/07/23 Esha Grimm PA-C [address] [place] [phone] Assigned PCP 07/16/23 Valery Veronica PA-C [address] [place] [address] 206865 Physician Nitroglycerin Distributor Dermatology 09/19/23 Rey Tay MD [address] [place] [id number] Gastroenterology 09/20/23 Rocky Zepeda DO [address] [place] [address] [phone] Physician Gastroenterology 09/20/23 Philip Dumont MD [address] [place] [address] Physician Ophthalmology 09/22/23 documented as of this encounter
--- OUTSIDE RECORDS SUMMARY | 2024-01-07 18:08 | XMS_ITS | Encounter Summary ---
Author Organization [facility] Address [address] [place] [address] Care Team Providers Care Curb Worker Name Role Phone Thang Diana [place] [facility] Unavailable Rain Galaviz PA-C Unavailable Tavia Wyatt MD Unavailable Unavailable Erica Farrell APRN BRIMMER BLOCKER Unavailable Rich Barrett MD Unavailable Neil Kent MD Unavailable Diana Desir Stanislav [facility] Unavailable [phone] Livan Sharif MD Unavailable Catherine Cm MD Unavailable + Valery Veronica PA-C Unavailable [phone] Brea Quinn FORESTRY TECHNICAL OFFICER BRIMMER BLOCKER Unavailable Brea Quinn FORESTRY TECHNICAL OFFICER BRIMMER BLOCKER Unavailable Jose Francisco Johnson MD Unavailable Alfonso Renteria MD Unavailable + [phone] Esha Grimm PA-C Primary Care Provider [phone] Radha Lomeli FORESTRY TECHNICAL OFFICER BRIMMER BLOCKER Unavailable [phone] FrankieJelenae OD Unavailable Pao Joseph RN Unavailable Unavailable Jesus Grimmyllincoln Medina PA-C Unavailable [phone] Valery Veronica PA-C Unavailable [phone] Rey Tay MD Unavailable Rocky Zepeda DO Unavailable Philip Dumont MD Unavailable [phone] Meredith Carrera PA-C Unavailable [phone] Neil Kent MD Unavailable Juan Pablo Emmanuel MD Unavailable [phone] Encounter Details Date Type Department Care Team (Late st Contact Info) Description 10/26/[address] [facility] [address] [place] [address] [place] Social History Tobacco [...] Answer Date Recorded PHQ-2 Score 0 10/25/2023 [facility] - Occupational Stress Questionnaire Answer Date [...] at this level? 30 min 03/10/2023 [place] Depression Scale Answer Date Recorded [place] Depression Score 5 01/14/2021 Last EPDS Self [...] in an abandoned building, in an overnight group home, or couch-surfing.) Yes 07/14/2023 Are you [...] 01/09/2024 10:15 AM CDT Office Visit [facility] Neurology [address], [address] [place] [phone] Genny Hyman PAUcheC [facility] Epilepsy [facility] 57[address] [facility] 255 [place], [place] 411646 [place] [address] [facility] 300 [place], [place] 9[address]387 02/06/2024 10:00 AM CDT Office Visit [facility] [address] [phone] Neil Kent MD 500 [place], [place] 275875 03/06/2024 3:00 PM CDT Office [facility] Heart [facility] [address] [facility] [address] [place] [phone] Radha Lomeli APRN BRIMMER BLOCKER [address] [place] [address] 03/07/2024 9:00 AM CDT Hospital Encounter [facility] [place] [facility] 909 [facility] 5th [place] [phone] Rocky Zepeda, DO 500 [place], [place] [address]415 03/07/2024 9:00 AM CDT - 03/07/2024 9:30 AM CDT Surgery [facility] 909 [facility] 5th [place] [phone] Rocky Zepeda, DO 500 [place], [place] 890765 Esophagoscopy, gastroscopy, duodenoscopy (EGD), combined Scheduled Procedures Name Priority Associated Diagnoses Date/Ti dc ESOPHAGOGASTRODUODENOSCOPY Eosinophilic esophagitis Esophageal dysphagia 03/07/2024 9:00 AM CDT documented as of this encounter Visit Diagnoses Not on filedocumented in this encounter Additional Health Concerns Infection Onset Date Last Indicated Resolved Time Rule Out COVID-19 12/26/2023 12/26/2023 12/26/2023 9:50 AM CDT Assessment Noted Time PHQ-9 Depression Total Score: 4 06/20/20 23 8: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 documented as of this encounter Care Teams Curb Worker Relationship Specialty Start Date End Date Esha Grimm PA-C [address] [place] [address] PCP - General Family Medicine 05/04/23 Diana Desir [facility] [address] [place] [address] Pharmacist Pharmacist 04/17/21 Rain Galaviz PA-C [address] [place] [address] [address] [place] [address] Physician Telegraph Repeater Technician Dermatology 04/28/21 Tavia Wyatt MD [address] [place] [address] [address] [place] [address] Dermatology 07/14/21 Erica Farrell APRN BRIMMER BLOCKER [address] [place], [place] 12[address] Nurse Practitioner Cardiovascular Disease 09/09/21 Rich Barrett MD [address] [place] [address] 278385 Physician Ophthalmology 01/21/22 Neil Kent MD [address] [place] [address] 655335 Dermatology 02/24/22 [facility] [address] [place] [address]75126 Assigned [place] Pharmacist 04/07/22 Livan Sharif MD [address], [facility]00 [place] [id number] Cardiovascular Disease 05/14/22 Catherine Cm MD [address] [facility] [place] 0[address]15 Cardiovascular Disease 07/21/22 Valery Veronica PA-C [address] [place] [address] Physician Telegraph Repeater Technician Dermatology 07/21/22 Brea Quinn APRN BRIMMER BLOCKER 500 [place] [address] Nurse Practitioner Dermatology 09/21/22 Brea Quinn APRN BRIMMER BLOCKER 6401 [place] [address] Assigned Surgical Provider 10/09/22 [place] [address] [facility] 300 [place] [address] Assigned Musculoskeletal Provider 10/09/22 Alfonso Renteria MD 5775 [facility] 200 [place] [address] Assigned Neuroscience Provider 04/02/23 Radha Lomeli APRN BRIMMER BLOCKER [address] [place] [id number] [place] [address] Assigned Heart and Vascular Provider 05/28/23 Jelena David OD [address] [facility] [place] [address] Ophthalmology 06/15/23 Pao Joseph, VJ Personal Advocate & Liaison (PAL) Nurse 08/01/23 11/07/23 Esha Grimm PA-C [address] [place] [address] Assigned PCP 07/16/23 Valery Veronica PA-C [address] [place] [address] Physician Telegraph Repeater Technician Dermatology 09/19/23 Rey Tay MD [address] [place] [address] MD Gastroenterology 09/20/23 Rocky Zepeda DO [address] [place] [address] Physician Gastroenterology 09/20/23 Philip Dumont MD [address] [place] [address] Physician Ophthalmology 09/22/23 Meredith Carrera, PA-C [address] [place] [address] Assigned Gastroenterology Provider 11/01/23 Neil Kent MD [address] [place] [address] Dermatology 11/02/23 [place] [address] [place], [place] 65[address] Neurological Surgery 12/26/23 documented as of this encounter
--- OUTSIDE RECORDS SUMMARY | 2024-01-07 18:08 | XMS_ITS | Encounter Summary ---
Author Organization [facility] Address [address] [place] [address] Care Team Providers Care Principal Statistical Scientist Name Role Phone Thang Diana [place] [facility] Unavailable Rain Galaviz PA-C Unavailable Tavia Wyatt MD Unavailable Unavailable Erica Farrell APRN BOILER FITTER Unavailable Rich Barrett MD Unavailable Neil Kent MD Unavailable Diana Desir Stanislav [facility] Unavailable [phone] Livan Sharif MD Unavailable Catherine Cm MD Unavailable + Valery Veronica PA-C Unavailable [phone] Brea Quinn GAS PLANT TECHNICIAN BOILER FITTER Unavailable Brea Quinn GAS PLANT TECHNICIAN BOILER FITTER Unavailable [phone] Jose Francisco Johnson MD Unavailable Alfonso Renteria MD Unavailable + [phone] Esha Grimm PA-C Primary Care Provider Radha Lomeli GAS PLANT TECHNICIAN BOILER FITTER Unavailable [phone] FrankieJelenae OD Unavailable Pao Joseph RN Unavailable Unavailable Jesus Grimmyllincoln Medina PA-C Unavailable [phone] Valery Veronica PA-C Unavailable [phone] Rey Tay MD Unavailable Rocky Zepeda DO Unavailable Philip Dumont MD Unavailable [phone] Meredith Carrera PA-C Unavailable [phone] Neil Kent MD Unavailable Juan Pablo Emmanuel MD Unavailable [phone] Encounter Details Date Type Department Care Team (Late st Contact Info) Description 10/24/2023 MyC Medical Advice [facility] G[facility]ology Clinic [address] [place] [address] Kenneth Denson Social History Tobacco [...] often do you attend chur ch or pentecostalism services? 1 to 4 times per year [...] Answer Date Recorded PHQ-2 Score 0 10/25/2023 [facility] - Occupational Stress Questionnaire Answer Date [...] exercise at this level? 30 min 03/10/2023 [place] Depression Scale Answer Date Recorded [place] Depression Score 5 01/14/2021 Last EPDS Self [...] Description 01/09/2024 10:15 AM CDT Office Visit [facility] Neurology [address], [address] [place] [phone] Genny Hyman PA-C [facility] Epilepsy [facility] 5775 [facility] 255 [place], [place] 98[address] [place] [address] [facility] 300 [place], [place] 7[address] 02/06/2024 10:00 AM CDT Office Visit [facility] [address] [phone] Neil Kent MD 500 [place], [place] 950765 03/06/2024 3:00 PM CDT Office Visit [facility] Heart [facility] [address] [facility] [address] [place] [phone] Radha Lomeli APRN BOILER FITTER [address] [facility] [address] [place] [address] 03/07/2024 9:00 AM CDT Hospital Encounter [facility] [place] 909 [facility] 5th [place] [phone] Rocky Zepeda, DO 500 [place], [place] [address] 03/07/2024 9:00 AM CDT - 03/07/2024 9:30 AM CDT Surgery [facility] 909 [facility] [address]th [place] [phone] Rocky Zepeda, DO 500 [place], [place] 226085 Esophagoscopy, gastroscopy, duodenoscopy (EGD), combined Scheduled Procedures Name Priority Associated Diagnoses Date/Ti il ESOPHAGOGASTRODUODENOSCOPY Eosinophilic esophagitis Esophageal dysphagia 03/07/2024 9:00 AM CDT documented as of this encounter Visit Diagnoses Not on filedocumented in this encounter Additional Health Concerns Infection Onset Date Last Indicated Resolved Time Rule Out COVID-19 12/26/2023 12/26/2023 12/26/2023 9:50 AM CDT Assessment Noted Time PHQ-9 Depression Total Score: 4 06/20/20 23 8: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 documented as of this encounter Care Teams Principal Statistical Scientist Relationship Specialty Start Date End Date Esha Grimm PA-C [address] [place] [address] PCP - General Family Medicine 05/04/23 Diana Desir [facility] [address] [place] [address] Pharmacist Pharmacist 04/17/21 Rain Galaviz PA-C [address] [place] [address] [address] [facility] [address] Physician Plant Utilities Engineer Dermatology 04/28/21 Tavia Wyatt MD [address] [place] [address] [address] [place] [address] Dermatology 07/14/21 Erica Farrell APRN BOILER FITTER [address] [place] 499[address] Nurse Practitioner Cardiovascular Disease 09/09/21 Rich Barrett MD [address] [place] [address]20455 Physician Ophthalmology 01/21/22 Neil Kent MD [address] [place] [address] 228925 Dermatology 02/24/22 [facility] [address] [place] [address] 588876 Assigned [place] Pharmacist 04/07/22 Livan Sharif MD [address], [facility]00 [place] 3[address] Cardiovascular Disease 05/14/22 Catherine Cm MD [address] [facility]00 [place] [address] Cardiovascular Disease 07/21/22 Valery Veronica PA-C [address] [place] [address] Physician Plant Utilities Engineer Dermatology 07/21/22 Brea Quinn APRN BOILER FITTER 500 [place] [address] Nurse Practitioner Dermatology 09/21/22 Brea Quinn APRN BOILER FITTER 6401 [place] [address] Assigned Surgical Provider 10/09/22 [place] [address] [facility] 300 [place] [address] Assigned Musculoskeletal Provider 10/09/22 Alfonso Renteria MD 5775 [facility] 200 [place] [address] Assigned Neuroscience Provider 04/02/23 Radha Lomeli APRN BOILER FITTER [address] [address] [place] [address] Assigned Heart and Vascular Provider 05/28/23 Jelena David OD [address] [facility] [address] Ophthalmology 06/15/23 Pao Joseph, VJ Personal Advocate & Liaison (PAL) Nurse 08/01/23 11/07/23 Esha Grimm PA-C [address] [place] [address] Assigned PCP 07/16/23 Valery Veronica PA-C [address] [place] [address] Physician Plant Utilities Engineer Dermatology 09/19/23 Rey Tay MD [address] [place] [address] MD Gastroenterology 09/20/23 Rocky Zepeda DO [address] [place] [address] Physician Gastroenterology 09/20/23 Philip Dumont MD [address] [place] [address] Physician Ophthalmology 09/22/23 Meredith Carrera, [place] [address] [place] [address] Assigned Gastroenterology Provider 11/01/23 Neil Kent MD [address] [place] [address] Dermatology 11/02/23 [place] [address] [place], [place] 3[address] Neurological Surgery 12/26/23 documented as of this encounter
--- OUTSIDE RECORDS SUMMARY | 2024-01-07 18:08 | XMS_ITS | Encounter Summary ---
Author Organization [place] Address [address] [place] [address] Care Team Providers Care Scroll Assembler Name Role Phone Thang Diana [place] [facility] Unavailable [phone] Rain Galaviz PA-C Unavailable [phone] Tavia Wyatt MD Unavailable Unavailable Erica Farrell APRN GREY PERCHER Unavailable Rich Barrett MD Unavailable Neil Kent MD Unavailable Diana Desir Stanislav [facility] Unavailable [phone] Livan Sharif MD Unavailable Catherine Cm MD Unavailable + Valery Veronica PA-C Unavailable [phone] Brea Quinn HANDCREW FOREMAN GREY PERCHER Unavailable Brea Quinn HANDCREW FOREMAN GREY PERCHER Unavailable Jose Francisco Johnson MD Unavailable Alfonso Renteria MD Unavailable + [phone] Esha Grimm PA-C Primary Care Provider Radha Lomeli HANDCREW FOREMAN GREY PERCHER Unavailable [phone] FrankieJelena OD Unavailable Pao Joseph RN Unavailable Unavailable [facility]ol[facility]ina PA-C Unavailable [phone] Valery Veronica PA-C Unavailable Rey Tay MD Unavailable Rocky Zepeda DO Unavailable Philip Dumont MD Unavailable [phone] Meredith Carrera-C Unavailable [phone] Neil Kent MD Unavailable Juan Pablo Emmanuel MD Unavailable [phone] Encounter Details Date Type Department Care Team (Late st Contact Info) Description 10/25/[address] [facility] Gastroenterology Clinic [address] [place] [address]th [place] [address] N[address] [place], RD [address]09 [place] [address] Social History Tobacco Use Types [...] 0 10/25/2023 [facility] of Occupat ional Health - [...] exercise at this level? 30 min 03/10/2023 Fitzhugh Depression Scale Answer Date Recorded Fitzhugh Depression Score 5 01/14/2021 Last EPDS Self [...] Visit [facility] Neurology [address], [address] [place] [address] Genny Hyman PAUcheC [facility] Epilepsy Care 5775 [facility] 255 [place], [place] [address] [place] [address] [place] [email or web address] 300 [place], [place] [address] 02/06/2024 10:00 AM CDT Office Visit [facility] [address] [address] Neil [place] MD 500 [place], [place] [address]105 03/06/2024 3:00 PM CDT Office Visit [facility] Heart [facility] [address] [place] [address] Radha Lomeli E, HANDCREW FOREMAN GREY PERCHER [address] [place] [address] 03/07/2024 9:00 AM CDT Hospital Encounter [address]th [place] [phone] Rocky Zepeda DO 500 [place], [place] 4[address]65 03/07/2024 9:00 AM CDT - 03/07/2024 9:30 AM CDT Surgery [address] [phone] Rocky Zepeda DO 500 [place], [place] [address]135 Esophagoscopy, gastroscopy, duodenoscopy (EGD), combined Scheduled Procedures [...] Total Score: 4 06/20/20 23 8:40 AM ONLINE COMMUNITY MANAGER documented as of this encounter Care Teams Scroll Assembler Relationship Specialty Start Date End Date Esha Grimm PA-C [address] [place] [address] PCP - General Family Medicine 05/04/23 Diana Desir, [facility] 3033 [place] [address] Pharmacist Pharmacist 04/17/21 Rain Galaviz PA-C [address] [place] [address] [address] [place] [address] Physician Toeing Stockings Dermatology 04/28/21 Tavia Wyatt MD [address] [place] [address] [place] [address] Dermatology 07/14/21 Erica Farrell APRN GREY PERCHER [address] [place] [address] Nurse Practitioner Cardiovascular Disease 09/09/21 Rich Barrett MD [address] [place] [address] 740175 Physician Ophthalmology 01/21/22 Neil Kent MD 500 [place], [place] 971425 Dermatology 02/24/22 Diana Desir, [facility] 3033 [place] [address] Assigned MTM Pharmacist 04/07/22 Livan Sharif MD [address] [place] [address] Cardiovascular Disease 05/14/22 Catherine Cm MD [address] [place] 148[address] Cardiovascular Disease 07/21/22 Valery Veronica PA-C [address]09 [place], [place] 252415 Physician Toeing Stockings Dermatology 07/21/22 Brea Quinn APRN GREY PERCHER 500 [place], [place] 036725 Nurse Practitioner Dermatology 09/21/22 Brea Quinn APRN GREY PERCHER 6401 [facility] [place] 898812 Assigned Surgical Provider 10/09/22 [place] [address] [place] [facility] [[email or web address]] 300 [place], [place] [address] Assigned Musculoskeletal Provider 10/09/22 Alfonso Renteria MD [address] [place] [facility] [[email or web address]] 200 [place] [address] Assigned Neuroscience Provider 04/02/23 Radha Lomeli APRN GREY PERCHER 6405 [facility] [address] [place] 227305 Assigned Heart and Vascular Provider 05/28/23 Jelena David OD [address] [facility] [place] [address] Ophthalmology 06/15/23 Pao Joseph, RN Personal Advocate & Liaison (PAL) Nurse 08/01/23 11/07/23 Esha Grimm PA-C [address] [place] [phone] Assigned PCP 07/16/23 Valery Veronica PA-C 9 [place] [address] Physician Toeing Stockings Dermatology 09/19/23 Rey Tay MD [address] [place] [address] MD Gastroenterology 09/20/23 Rocky Zepeda DO [address] [place] [address] 193095 Physician Gastroenterology 09/20/23 Philip Dumont MD [address] [place] [address] Physician Ophthalmology 09/22/23 Meredith Carrera PA-C [address] [place] [address] Assigned Gastroenterology Provider 11/01/23 Neil Kent MD [address] [address] Dermatology 11/02/23 [place] [address] [place] [address] Neurological Surgery 12/26/23 documented as of this encounter
--- OUTSIDE RECORDS SUMMARY | 2024-01-07 18:09 | XMS_ITS | Encounter Summary ---
Author Organization [place] Address [address] [place] [address] Care Team Providers Care Grain Shipper Name Role Phone Thang Diana [place] [facility] Unavailable Rain Galaviz PA-C Unavailable Tavia Wyatt MD Unavailable Unavailable Erica Farrell APRN ENGINEERING TEACHER Unavailable Rich Barrett MD Unavailable Neil [place] MD Unavailable Diana Desir Stanislav [facility] Unavailable [phone] Livan Sharif MD Unavailable Catherine Cm MD Unavailable + Valery Veronica PA-C Unavailable [phone] Brea Quinn IOS DEVELOPER ENGINEERING TEACHER Unavailable Brea Quinn IOS DEVELOPER ENGINEERING TEACHER Unavailable [phone] Jose Francisco Johnson MD Unavailable Alfonso Renteria MD Unavailable + [phone] Esha Grimm PA-C Primary Care Provider Radha Lomeli IOS DEVELOPER ENGINEERING TEACHER Unavailable [phone] Jelena David OD Unavailable Pao Joseph RN Unavailable Unavailable Esha Grimm PA-C Unavailable [phone] Valery Veronica PA-C Unavailable Rey Tay MD Unavailable Duane Rocky DO Unavailable Philip Dumont MD Unavailable Reason for Visit * Reason Onset Date Comments Appointment 10/06/2023 Reschedule of appt Encounter Details Date Type Department Care Team (Late st Contact Info) Description 10/06/2023 Telephone [facility] Gastroenterology Clinic [address] [place] [address] Meredith Carrera PA-C [address] [place] [address] Appointment (Reschedule of 10/06/23 appt) Social [...] you attend chur ch or shinto services? 1 to 4 times [...] PHQ-2 Score 0 06/20/2023 [facility] - Occupational Stress Questionnaire Answer Date [...] in an abandoned building, in an overnight senior living, or couch-surfing.) Yes 07/14/2023 Are you worried [...] Richar Schafer - 10/07/2023 1:16 PM CDT [facility] call to offer Pt an appointment with Meredith Carrera on 10/13/2023 at 10:45 AM. Pt accepted the appointment. * Telephone Encounter - [facility] - 10/06/2023 7:06 AM CDT [facility] Call Center Phone Message May a detailed message be left on voicemail: yes Reason for Call: Other: Patient had an appt with Meredith Carrera today, 10/06/23, at 7:30am; however, patient called at 7:05am stating she had overselpt and would not make it in. She stated she was squeezed in for this appt and felt really bad but she lives in [place] and would not make it in time.Therefore, she would like to be squeezed in at another time with Dr. Zepeda or Meredith Carrera - that is who she was told she has to schedule with. Please follow up with patient. Action Taken: Message routed to: [facility] Travel Screening: Not Applicable documented in this encounter Plan of Treatment Upcoming Encounters Date Type Department Care Team (Late st Contact Info) Description 01/09/2024 10:15 AM CDT Office Visit [facility] Neurology [facility] [address] [facility], [address] [place] [phone] H[address] PA-C [facility] Epilepsy Care 5775 [facility] 255 [place], [place] 963086 [place] [address] [address] [place] [address] 02/06/2024 10:00 AM CDT Office Visit [facility] [address] [phone] Neil Kent MD 500 [place], [place] 27[address]25 03/06/2024 3:00 PM CDT Office Visit [facility] Heart [facility] [address] [facility] [address] [place] [phone] Radha Lomeli, IOS DEVELOPER ENGINEERING TEACHER [address] [facility] [address] [place], [place] [address] 03/07/2024 9:00 AM CDT Hospital Encounter [facility] [address] [place] [address] [address] 5th [place] [phone] Rcoky Zepeda DO 500 [place] [address] 03/07/2024 9:00 AM CDT - 03/07/2024 9:30 AM CDT Surgery [address] 5th [place] [phone] Rocky Zepeda DO 500 [place] [address] Esophagoscopy, gastroscopy, duodenoscopy (EGD), combined Scheduled Procedures Name Priority Associated Diagnoses Date/Ti ne ESOPHAGOGASTRODUODENOSCOPY Eosinophilic esophagitis Esophageal dysphagia 03/07/2024 9:00 AM CDT documented as of this encounter Visit Diagnoses Not on filedocumented in this encounter Additional Health Concerns Assessment Noted Time PHQ-9 Depression Total Score: 4 06/20/20 23 8:40 AM LEAN MANUFACTURING COORDINATOR documented as of this encounter Care Teams Grain Shipper Relationship Specialty Start Date End Date Esha Grimm PA-C [address] [place] [address] PCP - General Family Medicine 05/04/23 Diana Desir, [facility] [address] [place], [place] 80[address] Pharmacist Pharmacist 04/17/21 Rani Galaviz PA-C [address] [place] [address] [address] [facility] [place] [place] [address] Physician Paper Cup Handle Machine Operator Dermatology 04/28/21 Tavia Wyatt MD [address] [place] [address] [address] [place] [address] Dermatology 07/14/21 Erica Farrell APRN ENGINEERING TEACHER [address] [facility] [address] [place] [address] Nurse Practitioner Cardiovascular Disease 09/09/21 Rich Barrett MD 516 [facility] [address]A [place], [place] [address] Physician Ophthalmology 01/21/22 Neil [place] MD 500 [place], [place] [address]255 Dermatology 02/24/22 Diana Desir, [facility] 3033 [place] [address] Assigned MTM Pharmacist 04/07/22 Livan Sharif MD [address] 895525 Cardiovascular Disease 05/14/22 Catherine Cm MD [address] 289[address] Cardiovascular Disease 07/21/22 Valery Veronica, PA-C 909 [place], [place] 380935 Physician Paper Cup Handle Machine Operator Dermatology 07/21/22 Brea Quinn APRN ENGINEERING TEACHER 500 [place] [address] Nurse Practitioner Dermatology 09/21/22 Brea Quinn APRN ENGINEERING TEACHER [address] [place] [address] [facility] [place] [place] 6[address]12 Assigned Surgical Provider 10/09/22 [place] [address] [place] [address] 409937 Assigned Musculoskeletal Provider 10/09/22 Alfonso Renteria MD [address] [facility] [address] 200 [place] [address] Assigned Neuroscience Provider 04/02/23 Radha Lomeli, ARLENE ENGINEERING TEACHER [address] [facility] [address] [place] [address] Assigned Heart and Vascular Provider 05/28/23 Jelena aDvid OD [address] [place] [address] MD Ophthalmology 06/15/23 Pao Joseph, VJ Personal Advocate & Liaison (PAL) Nurse 08/01/23 11/07/23 Esha Grimm PA-C [address] [place] [address] Assigned PCP 07/16/23 Valery Veronica PA-C 9 [place] [address] Physician Paper Cup Handle Machine Operator Dermatology 09/19/23 Rey Tay MD [address] [place] [address]36345 Gastroenterology 09/20/23 Rocky Zepeda DO [address] [place] [address] 887155 Physician Gastroenterology 09/20/23 Philip Dumont MD [address] [place] [address]645 Physician Ophthalmology 09/22/23 documented as of this encounter
--- OUTSIDE RECORDS SUMMARY | 2024-01-07 18:09 | XMS_ITS | Encounter Summary ---
Author Organization [place] Address [address] [place] [address] Care Team Providers Care Socket Puller Name Role Phone Thang Diana [place] [facility] Unavailable Rain Galaviz PA-C Unavailable Tavia Wyatt MD Unavailable Unavailable Erica Farrell APRN LPN HOME HEALTH Unavailable Rich Barrett MD Unavailable Neil [place] MD Unavailable Diaan Desir Stanislav [facility] Unavailable [phone] Livan Sharif MD Unavailable Catherine Cm MD Unavailable + Valery Veronica PA-C Unavailable [phone] Brea Quinn PARTS CASTING MACHINE OPERATOR LPN HOME HEALTH Unavailable Brea Quinn PARTS CASTING MACHINE OPERATOR LPN HOME HEALTH Unavailable Jose Francisco Johnson MD Unavailable Alfonso Renteria MD Unavailable + [phone] Esha Grimm PA-C Primary Care Provider Radha Lomeli PARTS CASTING MACHINE OPERATOR LPN HOME HEALTH Unavailable [phone] FrankieJelena OD Unavailable [phone] Pao Joseph RN Unavailable Unavailable Esha Grimm PA-C Unavailable [phone] Valery Veronica PA-C Unavailable Rey Tay MD Unavailable Rocky Zepeda Unavailable Philip Dumont MD Unavailable [phone] Reason for Visit * Reason Comments [...] Description 10/10/2023 4:20 PM CDT Office Visit [facility] [place] [address] [place], [place] [address] [address] Jaron Hager PA-C 1651 [place] [address] Congestion of paranasal sinus (Primary Dx) Social [...] often do you attend chur ch or moravian services? 1 to 4 times [...] Answer Date Recorded PHQ-2 Score 0 06/20/2023 [facility] of Occupat ional [...] in an abandoned building, in an overnight assisted, or couch-surfing.) Yes 07/14/2023 Are you worried [...] findings with the patient. The use of [employer] dictation services was used to construct the content of this note; any grammatical errors are non-intentional. Please contact the author directly if you are in need of any clarification. documented in this encounter Plan of Treatment Upcoming Encounters Date Type Department Care Team (Late st Contact Info) Description 01/09/2024 10:15 AM CDT Office Visit [facility] Neurology [address], [address] [place] [address] Genny Hyman PA-C [facility] Epilepsy Care 5775 [facility] 255 [place], [place] [phone] [place] [address] [place], [place] [address] 02/06/2024 10:00 AM CDT Office Visit [place] [address] [place] [address] Neil [place] MD 500 [place] [address] 03/06/2024 3:00 PM CDT Office Visit [facility] [address] [facility] [address] [place] [address] Radha Lomeli E, PARTS CASTING MACHINE OPERATOR LPN HOME HEALTH [address] [facility] [address] [place] [address] 03/07/2024 9:00 AM CDT Hospital Encounter [facility] [address] [place] [address] 5th [place] [phone] Rocky Zepeda DO 500 [place] [address] 03/07/2024 9:00 AM CDT - 03/07/2024 9:30 AM CDT Surgery [facility] [address] [place] [phone] Rocky Zepeda DO 500 [place] [address] Esophagoscopy, gastroscopy, duodenoscopy (EGD), combined Scheduled Procedures Name Priority Associated Diagnoses Date/Ti ar ESOPHAGOGASTRODUODENOSCOPY Eosinophilic esophagitis Esophageal dysphagia 03/07/2024 9:00 AM CDT documented as of this encounter Visit Diagnoses Diagnosis Congestion of paranasal sinus- Primary Eosinophilic esophagitis Esophageal dysphagia Dysphagia, pharyngoesophageal phase documented in this encounter Additional Health Concerns Assessment Noted Time PHQ-9 Depression Total Score: 4 06/20/20 23 8:40 AM GEOSCIENCE PROFESSOR documented as of this encounter Care Teams Socket Puller Relationship Specialty Start Date End Date Esha Grimm PA-C [address] [place] [phone] PCP - General Family Medicine 05/04/23 Diana Desir, [facility] [address] [place] [address] Pharmacist Pharmacist 04/17/21 Rain Galaviz PA-C [address] [place] [address] [address] [place] [address] Physician Associate Spa Director Dermatology 04/28/21 Tavia Wyatt MD [address] [place] [address] [facility] [address] Dermatology 07/14/21 Erica Farrell APRN LPN HOME HEALTH [address] [place] [address] Nurse Practitioner Cardiovascular Disease 09/09/21 Rich Barrett MD [address] [place] [address] 771575 Physician Ophthalmology 01/21/22 Neil Kent MD [address] [place] [address]35855 Dermatology 02/24/22 Diana Desir, [facility] [address] [place] [address] Assigned MTM Pharmacist 04/07/22 Livan Sharif MD [address] [place] [address] Cardiovascular Disease 05/14/22 Catherine Cm MD [address] [facility] [address] [place] [address] Cardiovascular Disease 07/21/22 Valery Veronica, [place] 909 [place], [place] 7835[address] Physician Associate Spa Director Dermatology 07/21/22 Brea Quinn APRN LPN HOME HEALTH 500 [place], [place] 6[address] Nurse Practitioner Dermatology 09/21/22 Brea Quinn APRN LPN HOME HEALTH 6401 [facility] [place] [address]482 Assigned Surgical Provider 10/09/22 [place] [address] [place] [address] Assigned Musculoskeletal Provider 10/09/22 Alfonso Renteria MD 5775 [facility] 200 [place], [place] [address] Assigned Neuroscience Provider 04/02/23 Radha Lomeli APRN LPN HOME HEALTH 6405 [facility] [address] [place] [address] Assigned Heart and Vascular Provider 05/28/23 Jelena David OD [address] [facility] [place] [address] Ophthalmology 06/15/23 Pao Joseph, RN Personal Advocate & Liaison (PAL) Nurse 08/01/23 11/07/23 Esha Grimm PA-C [address] [place] [address] Assigned PCP 07/16/23 Valery Veronica PA-C [address] [place] [address] 33349455 Physician Associate Spa Director Dermatology 09/19/23 Rey Tay MD [address] [place] [address] Gastroenterology 09/20/23 Rocky Zepeda DO [address] [place] [address] [id number] Physician Gastroenterology 09/20/23 Philip Dumont MD [address] [place] [address] 954305 Physician Ophthalmology 09/22/23 documented as of this encounter
--- OUTSIDE RECORDS SUMMARY | 2024-01-07 18:09 | XMS_ITS | Encounter Summary ---
Author Organization [place] Address [address] [place] [address] Care Team Providers Care Structurer Name Role Phone Thang Diana [place] [facility] Unavailable Rain Galaviz PA-C Unavailable Tavia Wyatt MD Unavailable Unavailable Erica Farrell APRN CAR SEAT MAKER Unavailable Rich Barrett MD Unavailable Neil Kent MD Unavailable Diana Desir Stanislav [facility] Unavailable [phone] Livan Sharif MD Unavailable Catherine Cm MD Unavailable + Valery Veronica PA-C Unavailable [phone] Brea Quinn DIRECTOR WORKFORCE MANAGEMENT CAR SEAT MAKER Unavailable Brea Quinn DIRECTOR WORKFORCE MANAGEMENT CAR SEAT MAKER Unavailable Jose Francisco Johnson MD Unavailable Alfonso Renteria MD Unavailable + [phone] Esha Grimm PA-C Primary Care Provider Radha Lomeli DIRECTOR WORKFORCE MANAGEMENT CAR SEAT MAKER Unavailable [phone] Jelena David OD Unavailable [phone] Pao Joseph RN Unavailable Unavailable Esha Grimm PA-C Unavailable [phone] Valery Veronica PA-C Unavailable [phone] Rey Tay MD Unavailable Duane Rockyanne STEVENS Unavailable Philip Dumont MD Unavailable [phone] Encounter Details Date Type Department Care [...] 03/10/2023 How often do you attend [facility] or yazidism services? 1 to 4 times [...] Answer Date Recorded PHQ-2 Score 0 06/20/2023 [facility] [place] of Occupat ional Health - Occupational Stress [...] exercise at this level? 30 min 03/10/2023 [place] Depression Scale Answer Date Recorded [place] Depression Score 5 01/14/2021 Last EPDS [...] Description 01/09/2024 10:15 AM CDT Office Visit [facility] Neurology [facility] [address] [facility], [address] [place] [phone] Genny Hyman PA-C [facility] Epilepsy [facility] Emergency Department [address] [facility] 255 [place], [place] [address] [place] [address] [facility] 300 [place], [place] [address]757 02/06/2024 10:00 AM CDT Office Visit [facility] [address] [phone] Neil Kent MD 500 [place], [place] [phone] 03/06/2024 3:00 PM CDT Office Visit [facility] Heart [facility] [address] [facility] [address] [place] [phone] Radha Lomeli, ARLENE CAR SEAT MAKER [address] [facility] [address] [place], [place] [address] 03/07/2024 9:00 AM CDT Hospital Encounter [facility] 909 [facility] [address] 5th [place] [phone] Rocky Zepeda DO 500 [place], [place] [phone] 03/07/2024 9:00 AM CDT - 03/07/2024 9:30 AM CDT Surgery [facility] 909 [facility] 5th [place] [phone] Zepeda Rocky, DO 500 [place] [address] Esophagoscopy, gastroscopy, duodenoscopy (EGD), combined Scheduled Procedures Name Priority Associated Diagnoses Date/Ti ar ESOPHAGOGASTRODUODENOSCOPY Eosinophilic esophagitis Esophageal dysphagia 03/07/2024 9:00 AM CDT documented as of this encounter Visit Diagnoses Not on filedocumented in this encounter Additional Health Concerns Assessment Noted Time PHQ-9 Depression Total Score: 4 06/20/20 23 8:40 AM DESPATCHING AND RECEIVING CLERK documented as of this encounter Care Teams Structurer Relationship Specialty Start Date End Date Esha Grimm PA-C [address] [place] [address] PCP - General Family Medicine 05/04/23 Diana Desir, [facility] 3033 [place] [address] Pharmacist Pharmacist 04/17/21 Rain Galaviz PA-C [address] [place] [address] ENMA KNUTSON [address] Physician Hide Washer Dermatology 04/28/21 Tavia Wyatt MD [address] [place] [address] EN[place] KNUTSON [address] Dermatology 07/14/21 Erica Farrell APRN CAR SEAT MAKER [address] [facility] [address] [address] [place] [address] Nurse Practitioner Cardiovascular Disease 09/09/21 Rich Barrett MD 516 [facility] 9A [place], [place] 0834[address] Physician Ophthalmology 01/21/22 Neil Kent MD 500 [place], [place] 720615 Dermatology 02/24/22 Diana Desir, [facility] 3033 [place], [place] 922026 Assigned [place] Pharmacist 04/07/22 Livan Sharif MD [address] [facility] [place], [place] [address] Cardiovascular Disease 05/14/22 Catherine Cm MD [address] 174925 Cardiovascular Disease 07/21/22 Valery Veronica, PA-C 909 [place], [place] [address] Physician Hide Washer Dermatology 07/21/22 Brea Quinn APRN CAR SEAT MAKER 500 [place], [place] 4597[address] Nurse Practitioner Dermatology 09/21/22 Brea Quinn APRN CAR SEAT MAKER 6401 [facility] [place] 48[address]12 Assigned Surgical Provider 10/09/22 [place] [address] [place] [facility] 300 [place] [address] Assigned Musculoskeletal Provider 10/09/22 Alfonso Renteria MD [address] [facility] 200 [place], [place] 7[address]86 Assigned Neuroscience Provider 04/02/23 Radha Lomeli APRN CAR SEAT MAKER 6405 [facility] [address] [place] [address] Assigned Heart and Vascular Provider 05/28/23 Jelena David OD [address] [facility] [address] [place] [id number] Ophthalmology 06/15/23 Pao Joseph, VJ Personal Advocate & Liaison (PAL) Nurse 08/01/23 11/07/23 Esha Grimm PA-C [address] [place] [phone] Assigned PCP 07/16/23 Valery Veronica PA-C [address] [place] [address] 128915 Physician Hide Washer Dermatology 09/19/23 Rey Tay MD [address] [place] [address] [phone] Gastroenterology 09/20/23 Rocky Zepeda DO [address] [place] [address] [phone] Physician Gastroenterology 09/20/23 Philip Dumont MD [address] [place] [address] Physician Ophthalmology 09/22/23 documented as of this encounter
--- OUTSIDE RECORDS SUMMARY | 2024-01-07 18:09 | XMS_ITS | Encounter Summary ---
Author Organization [place] Address [address] [place] [address] Care Team Providers Care Part Time Receptionist Name Role Phone Thang Diana [place] [facility] Unavailable Rain Galaviz PA-C Unavailable Tavia Wyatt MD Unavailable Unavailable Erica Farrell APRN PUMP RUNNER Unavailable Rich Barrett MD Unavailable Neil Kent MD Unavailable Diana Desir Stanislav [facility] Unavailable [phone] Livan Sharif MD Unavailable Catherine Cm MD Unavailable + Valery Veronica PA-C Unavailable [phone] Brea Quinn CONTRACT IMPLEMENTATION ANALYST PUMP RUNNER Unavailable Brea Quinn CONTRACT IMPLEMENTATION ANALYST PUMP RUNNER Unavailable Jose Francisco Johnson MD Unavailable Alfonso Renteria MD Unavailable + [phone] Esha Grimm PA-C Primary Care Provider Radha Lomeli CONTRACT IMPLEMENTATION ANALYST PUMP RUNNER Unavailable [phone] Jelena David OD Unavailable Pao Joseph RN Unavailable Unavailable Esha Grimm PA-C Unavailable [phone] Valery Veronica PA-C Unavailable [phone] Rey Tay MD Unavailable Duane Rockyanne STEVENS Unavailable Philip Dumont MD Unavailable [phone] Encounter Details Date Type Department Care [...] 03/10/2023 How often do you attend [facility] or hoahaoism services? 1 to 4 times [...] Answer Date Recorded PHQ-2 Score 0 06/20/2023 [facility] [place] of Occupat ional Health - Occupational Stress [...] Office Visit [facility] Neurology [facility] [address] [facility], [address] [place] [phone] Genny Hyman PA-C [facility] Epilepsy [facility] 5775 [facility] 255 [place], [place] 353366 [place] [address] [facility] 300 [place], [place] [address] 02/06/2024 10:00 AM CDT Office Visit [facility] [address] [phone] Neil Kent MD 500 [place], [place] [phone] 03/06/2024 3:00 PM CDT Office Visit [facility] Heart [facility] [address] [facility] [address] [place] [phone] Radha Lomeli, ARLENE PUMP RUNNER [address] [facility] [address] [place], [place] [address] 03/07/2024 9:00 AM CDT Hospital Encounter [facility] 909 [facility] [address] 5th [place] [phone] Rocky Zepeda DO 500 [place], [place] [phone] 03/07/2024 9:00 AM CDT - 03/07/2024 9:30 AM CDT Surgery [facility] 909 [facility] 5th [place] [phone] Zepeda Rocky, DO 500 [place] [address] Esophagoscopy, gastroscopy, duodenoscopy (EGD), combined Scheduled Procedures Name Priority Associated Diagnoses Date/Ti oh ESOPHAGOGASTRODUODENOSCOPY Eosinophilic esophagitis Esophageal dysphagia 03/07/2024 9:00 AM CDT documented as of this encounter Visit Diagnoses Not on filedocumented in this encounter Additional Health Concerns Assessment Noted Time PHQ-9 Depression Total Score: 4 06/20/20 23 8:40 AM GEOSPATIAL ENGINEER documented as of this encounter Care Teams Part Time Receptionist Relationship Specialty Start Date End Date Esha Grimm PA-C [address] [place] [address] PCP - General Family Medicine 05/04/23 Diana Desir, [facility] 3033 [place] [address] Pharmacist Pharmacist 04/17/21 Rain Galaviz PA-C [address] [place] [address] ENMA KNUTSON [address] Physician Barrel Cutter Dermatology 04/28/21 Tavia Wyatt MD [address] [place] [address] ENMA KNUTSON [address] Dermatology 07/14/21 Erica Farrell APRN PUMP RUNNER 6405 [facility] [address] [place]ERR[place] [address] Nurse Practitioner Cardiovascular Disease 09/09/21 Rich Barrett MD 516 [facility] 9A [place], [place] [address] Physician Ophthalmology 01/21/22 Neil Kent MD 500 [place], [place] 6[address]555 Dermatology 02/24/22 Diana Desir, [facility] 3033 [place], [place] [address]286 Assigned [place] Pharmacist 04/07/22 Livan Sharif MD [address] [facility] [place], [place] 2[address] Cardiovascular Disease 05/14/22 Catherine Cm MD [address] 109[address] Cardiovascular Disease 07/21/22 Valery Veronica, PA-C 909 [place], [place] 126135 Physician Barrel Cutter Dermatology 07/21/22 Brea Quinn APRN PUMP RUNNER 500 [place], [place] 439605 Nurse Practitioner Dermatology 09/21/22 Brea Quinn APRN PUMP RUNNER 6401 [facility] [place] 72[address]92 Assigned Surgical Provider 10/09/22 [place] [address] [place] [facility] 300 [place] [address] Assigned Musculoskeletal Provider 10/09/22 Alfonso Renteria MD [address] [facility] 200 [place], [place] [address]776 Assigned Neuroscience Provider 04/02/23 Radha Lomeli APRN PUMP RUNNER 6405 [facility] [address] [place] [address]405 Assigned Heart and Vascular Provider 05/28/23 Jelena David OD 3[address] [facility] [address] [place] [id number] Ophthalmology 06/15/23 Pao Joseph, VJ Personal Advocate & Liaison (PAL) Nurse 08/01/23 11/07/23 Esha Grimm PA-C [address] [place] [phone] Assigned PCP 07/16/23 Valery Veronica PA-C [address] [place] [address] 497765 Physician Barrel Cutter Dermatology 09/19/23 Rey Tay MD [address] [place] [address] [phone] Gastroenterology 09/20/23 Rocky Zepeda DO [address] [place] [address] [phone] Physician Gastroenterology 09/20/23 Philip Dumont MD [address] [place] [address] Physician Ophthalmology 09/22/23 documented as of this encounter
--- OUTSIDE RECORDS SUMMARY | 2024-01-07 18:09 | XMS_ITS | Encounter Summary ---
Author Organization [place] Address [address] [place] [address] Care Team Providers Care Protector Plate Attacher Name Role Phone Thang Diana [place] [facility] Unavailable Rain Galaviz PA-C Unavailable Tavia Wyatt MD Unavailable Unavailable Erica Farrell APRN CORPORATE GIVING MANAGER Unavailable Rich Barrett MD Unavailable Neil Kent MD Unavailable Daina Desir Stanislav [facility] Unavailable [phone] Livan Sharif MD Unavailable Catherine Cm MD Unavailable + Valery Veronica PA-C Unavailable [phone] Brea Quinn HANDBOOK WRITER CORPORATE GIVING MANAGER Unavailable Brea Quinn HANDBOOK WRITER CORPORATE GIVING MANAGER Unavailable [phone] Jose Francisco Johnson MD Unavailable Alfonso Renteria MD Unavailable + [phone] Esha Grimm PA-C Primary Care Provider Radha Lomeli HANDBOOK WRITER CORPORATE GIVING MANAGER Unavailable [phone] Jelena David OD Unavailable Pao Joseph RN Unavailable Unavailable Esha Grimm PA-C Unavailable [phone] Valery Veronica PA-C Unavailable [phone] Rey Tay MD Unavailable Rocky Zepeda DO Unavailable Philip Dumont MD Unavailable [phone] Encounter Details Date Type Department Care Team (Late st Contact Info) Description 10/21/2023 [facility] [address]th [place] [address] Bob Diop Social History Tobacco Use Types [...] How often do you attend chur or rastafarian services? 1 to 4 times [...] Answer Date Recorded PHQ-2 Score 0 06/20/2023 [facility] - Occupational Stress Questionnaire Answer [...] exercise at this level? 30 min 03/10/2023 [place] Depression Scale Answer Date Recorded [place] Depression Score 5 01/14/2021 Last EPDS Self [...] Description 01/09/2024 10:15 AM CDT Office Visit [facility] Neurology [facility] [address] [place] [address], [address] [place] [phone] Genny Hyman PA-C [facility] Epilepsy [facility] 5775 [facility] 255 [place], [place] 8[address]406 [place] [address] [facility] 300 [place], [place] 9[address] 02/06/2024 10:00 AM CDT Office Visit [facility] [address] [address] Neil Kent MD 500 [place], [place] [address] 03/06/2024 3:00 PM CDT Office Visit [facility] Heart [facility] [address] [facility] [address] [place] [address] Radha Lomeli APRN CORPORATE GIVING MANAGER [address] [place], [place] [address]405 03/07/2024 9:00 AM CDT Hospital Encounter [facility] 909 [facility] 5th [place] [phone] Rocky Zepeda DO 500 [place] [address] 03/07/2024 9:00 AM CDT - 03/07/2024 9:30 AM CDT [address]th [place] [phone] Rocky Zepeda DO 500 [place] [address] Esophagoscopy, gastroscopy, duodenoscopy (EGD), combined Scheduled Procedures Name Priority Associated Diagnoses Date/Ti oh ESOPHAGOGASTRODUODENOSCOPY Eosinophilic esophagitis Esophageal dysphagia 03/07/2024 9:00 AM CDT documented as of this encounter Visit Diagnoses Not on filedocumented in this encounter Additional Health Concerns Assessment Noted Time PHQ-9 Depression Total Score: 4 06/20/20 23 8:40 AM COMMERCIAL LINES UNDERWRITER documented as of this encounter Care Teams Protector Plate Attacher Relationship Specialty Start Date End Date Esha Grimm PA-C [address] [place] [address] PCP - General Family Medicine 05/04/23 Diana Desir, [facility] [address] [place] [address] Pharmacist Pharmacist 04/17/21 Rian Galaviz PA-C [address] [place] [address] [address] [place] [address] Physician Complaint Analyst Dermatology 04/28/21 Tavia Wyatt MD [address] [place] [address] EN[place] KNUTSON [address] Dermatology 07/14/21 Erica Farrell APRN CORPORATE GIVING MANAGER [address] [place] [address] Nurse Practitioner Cardiovascular Disease 09/09/21 Rich Barrett MD 516 [facility] 9A [place] [address] Physician Ophthalmology 01/21/22 Neil Kent MD 500 [place], [place] 588165 Dermatology 02/24/22 Diana Desir, [facility] 3033 [place], [place] [address]686 Assigned [place] Pharmacist 04/07/22 Livan Sharif MD [address] [place], [place] [address] Cardiovascular Disease 05/14/22 Catherine Cm MD [address] [address] [place] 402755 Cardiovascular Disease 07/21/22 Valery Veronica PAUcheC 909 [place], [place] 517675 Physician Complaint Analyst Dermatology 07/21/22 Brea Quinn APRN CORPORATE GIVING MANAGER 500 [place], [place] [address]35 Nurse Practitioner Dermatology 09/21/22 Brea Quinn APRN CORPORATE GIVING MANAGER 6401 [facility] [place] [address] Assigned Surgical Provider 10/09/22 [place] [address] [place] [address] Assigned Musculoskeletal Provider 10/09/22 Alfonso Renteria MD [address] [facility] 200 [place], [place] 36[address]86 Assigned Neuroscience Provider 04/02/23 Radha Lomeli, ARLENE CORPORATE GIVING MANAGER 6405 [facility] [address] [place], [place] [address] Assigned Heart and Vascular Provider 05/28/23 Jelena David OD [address] [facility] [place] [address] Ophthalmology 06/15/23 Pao Joseph, VJ Personal Advocate & Liaison (PAL) Nurse 08/01/23 11/07/23 Esha Grimm PA-C [address] [place] [phone] Assigned PCP 07/16/23 Valery Veronica PA-C 909 [place], [place] 014825 Physician Complaint Analyst Dermatology 09/19/23 Rey Tay MD 909 [place], [place] 943195 Gastroenterology 09/20/23 Rocky Zepeda DO [address] [place] [address] [phone] Physician Gastroenterology 09/20/23 Philip Dumont MD [address] [place] [address] 181135 Physician Ophthalmology 09/22/23 documented as of this encounter
--- OUTSIDE RECORDS SUMMARY | 2024-01-07 18:09 | XMS_ITS | Encounter Summary ---
Author Organization [place] Address [address] [place] [address] Care Team Providers Care Mellowing Machine Operator Name Role Phone Thang [place] [facility] Unavailable [phone] Rain Galaviz PA-C Unavailable Tavia Wyatt MD Unavailable Unavailable Erica Farrell APRN ONCOLOGY PHYSICIAN ASSISTANT Unavailable Rich Barrett MD Unavailable Neil Kent MD Unavailable Diana Desir Stanislav [facility] Unavailable [phone] Livan Sharif MD Unavailable Catherine Cm MD Unavailable + Valery Veronica PA-C Unavailable [phone] Brea Quinn AIRCRAFT MAINTENANCE TECHNICIAN ONCOLOGY PHYSICIAN ASSISTANT Unavailable [phone] Brea Quinn AIRCRAFT MAINTENANCE TECHNICIAN ONCOLOGY PHYSICIAN ASSISTANT Unavailable Jose Francisco Johnson MD Unavailable Alfonso Renteria MD Unavailable + [phone] Esha Grimm PA-C Primary Care Provider Radha Lomeli AIRCRAFT MAINTENANCE TECHNICIAN ONCOLOGY PHYSICIAN ASSISTANT Unavailable [phone] Jelena David OD Unavailable Pao Joseph RN Unavailable Unavailable Esha Grimm PA-C Unavailable [phone] Valery Veronica PA-C Unavailable [phone] Rey Tay MD Unavailable ZepedaRocky Unavailable Philip Dumont MD Unavailable [phone] Reason for Visit * Reason Onset Date Comments Medication Update 10/21/2023 Encounter Details Date Type Department Care Team (Late st Contact Info) Description 10/21/2023 Telephone [facility] [id number] [place] [address] Esha Grimm PA-C [id number] [place] [phone] Medication Update Social History Tobacco Use [...] Score 0 06/20/2023 [facility] - Occupational Stress Questionnaire [...] exercise at this level? 30 min 03/10/2023 [place] Depression Scale Answer Date Recorded [place] Depression Score 5 01/14/2021 Last EPDS Self [...] - 10/21/2023 2:54 PM CDT FYI-sent patient [employer] message in response to question about supplement. No need to follow up further unless other questions. Thanks! Esah Grimm PA-C * Telephone Encounter - Asiya [...] not want to continue omeprazole forever and statesshchuck has been on omeprazole since age 16. She feels omeprazole making her worse as now has EOE and hiatal hernia. Tuesday also started the gluten and dairy free diet. Please advise. Patient sending [employer] message with label of HCL. Can send response in [employer]. VJ Doe Kayla M, PA-C to Kim [...] more issues with your GERD and EOE. Best, Esha Last read by Kim Johnson at 2:06 PM on 10/21/2023. documented in this encounter Plan of Treatment Upcoming Encounters Date Type Department Care Team (Late st Contact Info) Description 01/09/2024 10:15 AM CDT [facility] [address], [address] [place] [phone] Genny Hyman, PAUcheC [facility] Epilepsy [facility] [address] [facility] 255 [place] [address] [place] [address] [facility] 300 [place] [address] 02/06/2024 10:00 AM CDT Office Visit [facility] [address] [phone] Neil Kent MD 500 [place] [address] 03/06/2024 3:00 PM CDT [facility] [address] [facility] [address] [place] [phone] Radha Lomeli, AIRCRAFT MAINTENANCE TECHNICIAN ONCOLOGY PHYSICIAN ASSISTANT [address] [facility] [address] [place] [address] 03/07/2024 9:00 AM CDT Hospital Encounter [place] [address] [facility] 5th [place] [phone] Rcoky Zepeda DO 500 [place], [place] [address] 03/07/2024 9:00 AM CDT - 03/07/2024 9:30 AM CDT Surgery [address] [phone] Rocky Zepeda DO 500 [place], [place] [address]30[address] Esophagoscopy, gastroscopy, duodenoscopy (EGD), combined Scheduled Procedures Name Priority Associated Diagnoses Date/Ti mo ESOPHAGOGASTRODUODENOSCOPY Eosinophilic esophagitis Esophageal dysphagia 03/07/2024 9:00 AM CDT documented as of this encounter Visit Diagnoses Not on filedocumented in this encounter Additional Health Concerns Assessment Noted Time PHQ-9 Depression Total Score: 4 06/20/20 23 8:40 AM ADMINISTRATIVE AIDE documented as of this encounter Care Teams Mellowing Machine Operator Relationship Specialty Start Date End Date Esha Grimm PA-C [address] [place] [address] PCP - General Family Medicine 05/04/23 Diana Desir, [facility] [address] [place] [address] Pharmacist Pharmacist 04/17/21 Rain Galaviz PA-C [address] [place] [address] [address] [place] [address] Physician Quality Control Operator Dermatology 04/28/21 Tavia Wyatt MD [address] [place] [address] [address] [place] [address] Dermatology 07/14/21 Erica Farrell APRN ONCOLOGY PHYSICIAN ASSISTANT [address] [place], [place] [address] Nurse Practitioner Cardiovascular Disease 09/09/21 Rich Barrett MD 516 [facility] 9A [place] [address] Physician Ophthalmology 01/21/22 Neil Kent MD 500 [place] [address] Dermatology 02/24/22 Diana Desir, [facility] 3033 [place], [place] 6[address] Assigned MTM Pharmacist 04/07/22 Livan Sharif MD [address] [facility]00 [place], [place] [address] Cardiovascular Disease 05/14/22 Catherine Cm MD [address] 249935 Cardiovascular Disease 07/21/22 Valery Veronica PAUcheC 909 [place], [place] 540175 Physician Quality Control Operator Dermatology 07/21/22 Brea Quinn APRN ONCOLOGY PHYSICIAN ASSISTANT 500 [place], [place] [address] Nurse Practitioner Dermatology 09/21/22 Brea Quinn APRN ONCOLOGY PHYSICIAN ASSISTANT 6401 [facility] [place] [address] Assigned Surgical Provider 10/09/22 [place] [address] [facility] [facility] 300 [place] [address] Assigned Musculoskeletal Provider 10/09/22 Alfonso Renteria MD [address] [facility] 200 [place], [place] [id number] Assigned Neuroscience Provider 04/02/23 Radha Lomeli APRN ONCOLOGY PHYSICIAN ASSISTANT 6405 [facility] [address] [place] [address] Assigned Heart and Vascular Provider 05/28/23 Jelena David OD [address] [place] [address] Ophthalmology 06/15/23 Pao Jospeh, VJ Personal Advocate & Liaison (PAL) Nurse 08/01/23 11/07/23 Esha Grimm PA-C [address] [place] [address] Assigned PCP 07/16/23 Valery Veronica PA-C [address] [place] [address] 317665 Physician Quality Control Operator Dermatology 09/19/23 Rey Tay MD 909 [place], [place] 687[address] Gastroenterology 09/20/23 Rocky Zepeda DO [address] [place] [address] [phone] Physician Gastroenterology 09/20/23 Philip Dumont MD [address] [place] [address] [phone] Physician Ophthalmology 09/22/23 documented as of this encounter
--- OUTSIDE RECORDS SUMMARY | 2024-01-07 18:09 | XMS_ITS | Encounter Summary ---
Author Organization [place] Address [address] [place] [address] Care Team Providers Care Blood Bank Technologist Name Role Phone Thang [place] [facility] Unavailable Rain Galaviz PA-C Unavailable Tavia Wyatt MD Unavailable Unavailable Erica Farrell APRN CORPSMAN Unavailable Rich Barrett MD Unavailable Neil Kent MD Unavailable Diana Desir Stanislav [facility] Unavailable [phone] Livan Sharif MD Unavailable Catherine Cm MD Unavailable + Valery Veronica PA-C Unavailable [phone] Brea Quinn EVENTS SOLUTIONS CONSULTANT CORPSMAN Unavailable Brea Quinn EVENTS SOLUTIONS CONSULTANT CORPSMAN Unavailable Jose Francisco Johnson MD Unavailable Alfonso Renteria MD Unavailable + [phone] Esha Grimm PA-C Primary Care Provider Radha Lomeli [employer] SOL[employer] CONSULTANT CORPSMAN Unavailable [phone] FrankieJelena OD Unavailable Pao Joseph RN Unavailable Unavailable Alfa [facility] Unavailable [phone] Valery VeronicaC Unavailable [phone] Rey Tay MD Unavailable Rocky Zepeda DO Unavailable Philip Dumont MD Unavailable [phone] Meredith Carrera PA-C Unavailable [phone] Neil Kent MD Unavailable Juan Pablo Emmanuel MD Unavailable Reason for Visit * Reason Onset Date Comments Medication Question 10/21/2023 omeprazole Encounter Details Date Type Department Care Team (Late st Contact Info) Description 10/21/2023 Telephone [facility] [address] [place] [address] Meredith Carrera PA-C [address] [place] [address] Medication Question (omeprazole ) Social History [...] often do you attend chur ch or holiness services? 1 to 4 times per year [...] Answer Date Recorded PHQ-2 Score 0 10/25/2023 [facility] - Occupational Stress Questionnaire Answer Date [...] exercise at this level? 30 min 03/10/2023 [place] Depression Scale Answer Date Recorded [place] Depression Score 5 01/14/2021 Last EPDS Self [...] Mayra Rajput - 10/21/2023 4:42 PM CDT [facility] Call Center Phone Message May a detailed message be left on voicemail: yes Reason for Call: Other: Pt called in asking to speak to a nurse about omeprazole that she is on. Ptdeclined to schedule follow up until she speaks to someone from care team about the medication. Thank you. Action Taken: Message routed to: [facility][id number][facility] Travel Screening: Not Applicable documented in this encounter Plan of Treatment Upcoming Encounters Date Type Department Care Team (Late st Contact Info) Description 01/09/2024 10:15 AM CDT Office Visit [facility] Neurology [facility] - [address], [address] [place] [address] Genny Hyman PA-C [facility] Epilepsy [address] [place] [address] [place] [address] [place] [address] 02/06/2024 10:00 AM CDT Office Visit [facility] [address] [phone] Neil Kent MD 500 [place], [place] 8[address]85 03/06/2024 3:00 PM CDT Office Visit [facility] [address] [facility] [address] [place] [phone] Radha Lomeli, EVENTS SOLUTIONS CONSULTANT CORPSMAN [address] [place] [address] 03/07/2024 9:00 AM CDT Hospital Encounter [address]th [place] [phone] Rocky Zepeda DO 500 [place], [place] [address] 03/07/2024 9:00 AM CDT - 03/07/2024 9:30 AM CDT Surgery [address] 5th [place] [phone] Rocky Zepeda DO 500 [place], [place] [address] Esophagoscopy, gastroscopy, duodenoscopy (EGD), combined Scheduled Procedures [...] Total Score: 4 06/20/20 23 8:40 AM DAG SPRAYER documented as of this encounter Care Teams Blood Bank Technologist Relationship Specialty Start Date End Date Esha Grimm PA-C [address] [place] [address] PCP - General Family Medicine 05/04/23 Diana Desir, [facility] [address] [place] [address] Pharmacist Pharmacist 04/17/21 Rain Galaviz PA-C [address] [place] [address] [address] [place] [address] Physician Removable Prosthodontist Dermatology 04/28/21 Tavia Wyatt MD [address] [place] [address] [address] [place] [address] Dermatology 07/14/21 Erica Farrell APRN CORPSMAN 6405 [facility] [address] [place], [place] 447575 Nurse Practitioner Cardiovascular Disease 09/09/21 Rich Barrett MD 516 [facility] 9A [place], [place] [address] Physician Ophthalmology 01/21/22 Neil Kent MD 500 [place], [place] [phone] Dermatology 02/24/22 Diana Desir, [facility] 3033 [place], [place] 950536 Assigned MTM Pharmacist 04/07/22 Livan Sharif MD [address] [facility] [address] [place], [place] [address] Cardiovascular Disease 05/14/22 Catherine Cm MD [address] [facility] [address] [place] [address] Cardiovascular Disease 07/21/22 Valery Veronica, PA-C 909 [place], [place] 165775 Physician Removable Prosthodontist Dermatology 07/21/22 Brea Quinn APRN CORPSMAN 500 [place], [place] 183905 Nurse Practitioner Dermatology 09/21/22 Brea Quinn APRN CORPSMAN [address] [place] [address] 692902 Assigned Surgical Provider 10/09/22 [place] [address] [address] [facility] 300 [place], [place] 362507 Assigned Musculoskeletal Provider 10/09/22 Alfonso Renteria MD 5775 [facility] 200 [place], [place] 904336 Assigned Neuroscience Provider 04/02/23 Radha Lomeli APRN CORPSMAN 6405 [facility] [address] [place], [place] 002055 Assigned Heart and Vascular Provider 05/28/23 [place] OD [address] [place] [address] MD Ophthalmology 06/15/23 Pao Joseph, VJ Personal Advocate & Liaison (PAL) Nurse 08/01/23 11/07/23 Esha Grimm PA-C [address] [place] [phone] Assigned PCP 07/16/23 Valery Veronica PA-C [address] [place] [address]645 Physician Removable Prosthodontist Dermatology 09/19/23 Rey Tay MD [address] [place] [address] 783055 Gastroenterology 09/20/23 Rocky Zepeda DO [address] [place] [address] 782545 Physician Gastroenterology 09/20/23 Philip Dumont MD [address] [place] [address] 477645 Physician Ophthalmology 09/22/23 Meredith Carrera PA-C [address] [place] [address] Assigned Gastroenterology Provider 11/01/23 Neil Kent MD [address] [place] [address] Dermatology 11/02/23 [place] [address] [place] [address] Neurological Surgery 12/26/23 documented as of this encounter
--- OUTSIDE RECORDS SUMMARY | 2024-01-07 18:09 | XMS_ITS | Encounter Summary ---
Author Organization [place] Address [address] [place] [address] Care Team Providers Care Grey Iron Molder Name Role Phone Thang Diana [place] [facility] Unavailable [phone] Rain Galaviz PA-C Unavailable Tavia Wyatt MD Unavailable Unavailable Erica Farrell APRN SURGICAL SCRUB TECH Unavailable Rich Barrett MD Unavailable Neil Kent MD Unavailable Diana Desir Stanislav [facility] Unavailable [phone] Livan Sharif MD Unavailable Catherine Cm MD Unavailable + Valery Veronica PA-C Unavailable [phone] Brea Quinn FLOORWORKER SURGICAL SCRUB TECH Unavailable Brea Quinn FLOORWORKER SURGICAL SCRUB TECH Unavailable Jose Francisco Johnson MD Unavailable Alfonso Renteria MD Unavailable + [phone] Esha Grimm PA-C Primary Care Provider [phone] Radha Lomeli FLOORWORKER SURGICAL SCRUB TECH Unavailable [phone] FrankieJelena OD Unavailable Pao Joseph RN Unavailable Unavailable Esha Grimm PA-C Unavailable [phone] Valery Veronica PA-C Unavailable [phone] Rey Tay MD Unavailable ZepedaRocky woodard Unavailable Philip Dumont MD Unavailable [phone] Reason for Visit * Reason Onset Date Comments Sinus Problem 10/18/2023 Encounter Details Date Type Department Care Team (Late st Contact Info) Description 10/18/2023 Telephone [facility] [address] [place] [phone] Esha Grimm PA-C [id number] [place] [phone] Sinus Problem Social History Tobacco Use [...] Answer Date Recorded PHQ-2 Score 0 06/20/2023 [facility] - Occupational Stress Questionnaire [...] exercise at this level? 30 min 03/10/2023 [place] Depression Scale Answer Date Recorded [place] Depression Score 5 01/14/2021 Last EPDS [...] in an abandoned building, in an overnight residential, or couch-surfing.) Yes 07/14/2023 Are you worried [...] follow up prn Natasha Luis RN, BSN [facility] documented in this encounter Plan of Treatment Upcoming Encounters Date Type Department Care Team (Late st Contact Info) Description 01/09/2024 10:15 AM CDT Office Visit [facility] Neurology Clinics - [address], [address] [place] [address] Genny Hyman PA-C [facility] Epilepsy Care 5775 [facility] [address] [place], [place] [address] [place] [address] [place], [place] [address] 02/06/2024 10:00 AM CDT Office Visit [facility] [place] [address] [phone] Neil Kent MD 500 [place] [address] 03/06/2024 3:00 PM CDT Office Visit [facility] [address] [facility] [address] [place] [phone] Radha Lomeli E, FLOORWORKER SURGICAL SCRUB TECH [address] [place], [place] [address] 03/07/2024 9:00 AM CDT Hospital Encounter [facility] [address] [place] [phone] Rocky Zepeda DO 500 [place] [address] 03/07/2024 9:00 AM CDT - 03/07/2024 9:30 AM CDT Surgery [address] [phone] Rocky Zepeda DO 500 [place], [place] [address] Esophagoscopy, gastroscopy, duodenoscopy (EGD), combined Scheduled Procedures Name Priority Associated Diagnoses Date/Ti mi ESOPHAGOGASTRODUODENOSCOPY Eosinophilic esophagitis Esophageal dysphagia 03/07/2024 9:00 AM CDT documented as of this encounter Visit Diagnoses Not on filedocumented in this encounter Additional Health Concerns Assessment Noted Time PHQ-9 Depression Total Score: 4 06/20/20 23 8:40 AM DIRECTOR UNDERWRITER SALES documented as of this encounter Care Teams Grey Iron Molder Relationship Specialty Start Date End Date Esha Grimm PA-C [address] [place] [address] PCP - General Family Medicine 05/04/23 Diana Desir [facility] [address] [place] [address] Pharmacist Pharmacist 04/17/21 Rain Galaviz PA-C [address] [place] [address] [address] [place] [address] Physician Well Logging Mud Analysis Captain Dermatology 04/28/21 Tavia Wyatt MD [address] [place] [address] [address] [facility] [address] Dermatology 07/14/21 Erica Farrell APRN SURGICAL SCRUB TECH [address] [place] [address] Nurse Practitioner Cardiovascular Disease 09/09/21 Rich Barrett MD [address] [place] [address] 318025 Physician Ophthalmology 01/21/22 Neil Kent MD [address] [place] [address] 315675 Dermatology 02/24/22 Diana Desir, [facility] [address] [place] [address] Assigned MTM Pharmacist 04/07/22 Livan Sharif MD [address] [place] 8[address]365 Cardiovascular Disease 05/14/22 Catherine Cm MD [address] [facility] [address] [place] 643535 Cardiovascular Disease 07/21/22 Valery Veronica, PAL[place] 909 [place], [place] 494545 Physician Well Logging Mud Analysis Captain Dermatology 07/21/22 Brea Quinn APRN SURGICAL SCRUB TECH 500 [place], [place] 965275 Nurse Practitioner Dermatology 09/21/22 Brea Quinn APRN SURGICAL SCRUB TECH 6401 [place], [place] 020292 Assigned Surgical Provider 10/09/22 [place] [address] [address] [facility] 300 [place], [place] 6[address]87 Assigned Musculoskeletal Provider 10/09/22 Alfonso Renteria MD 5775 [facility] 200 [place], [place] 4[address]86 Assigned Neuroscience Provider 04/02/23 Radha Lomeli APRN SURGICAL SCRUB TECH [address] [place] 1372700 [place] 705605 Assigned Heart and Vascular Provider 05/28/23 Jelena David OD 3305 [facility] [place] [address] MD Ophthalmology 06/15/23 Pao Joseph, RN Personal Advocate & Liaison (PAL) Nurse 08/01/23 11/07/23 Esha Grimm PA-C [address] [place] [address] Assigned PCP 07/16/23 Valery Veronica PA-C [address] [place] [address] 761235 Physician Well Logging Mud Analysis Captain Dermatology 09/19/23 Rey Tay MD [address] [place] [address] 287945 Gastroenterology 09/20/23 Rocky Zepeda DO [address] [place] [address] 301025 Physician Gastroenterology 09/20/23 Philip Dumont MD [address] [place] [address] 499465 Physician Ophthalmology 09/22/23 documented as of this encounter
--- OUTSIDE RECORDS SUMMARY | 2024-01-07 18:09 | XMS_ITS | Encounter Summary ---
Author Organization [place] Address [address] [place] [address] Care Team Providers Care Complaint Investigator Name Role Phone Thang Diana [place] [facility] Unavailable Rain Galaviz PA-C Unavailable Tavia Wyatt MD Unavailable Unavailable Erica Farrell APRN REHAB SERVICES AIDE Unavailable Rich Barrett MD Unavailable Neil Kent MD Unavailable Diana Desir Stanislav [facility] Unavailable [phone] Livan Sharif MD Unavailable Catherine Cm MD Unavailable + Valery Veronica PA-C Unavailable [phone] Brea Quinn ECONOMIC SPECIALIST REHAB SERVICES AIDE Unavailable [phone] Brea Quinn ECONOMIC SPECIALIST REHAB SERVICES AIDE Unavailable Jose Francisco Johnson MD Unavailable Alfonso Renteria MD Unavailable + [phone] Esha Grimm PA-C Primary Care Provider Radha Lomeli ECONOMIC SPECIALIST REHAB SERVICES AIDE Unavailable [phone] FrankieJelena OD Unavailable Pao Joseph RN Unavailable Unavailable Esha Grimm PA-C Unavailable [phone] Valery Veronica PA-C Unavailable [phone] Rey Tay MD Unavailable ZepedaRocky Unavailable Philip Dumont MD Unavailable [phone] Reason for Visit * Reason Onset Date Comments Outreach 10/20/2023 Encounter Details Date Type Department Care Team (Late st Contact Info) Description 10/20/2023 [facility] Medical Advice [facility] [address] [place] [phone] Esha Grimm PA-C [id number] [place] [phone] Outreach Social History Tobacco Use Types [...] Answer Date Recorded PHQ-2 Score 0 06/20/2023 [facility] - Occupational Stress Questionnaire Answer [...] exercise at this level? 30 min 03/10/2023 Hopkins Depression Scale Answer Date Recorded Hopkins Depression Score 5 01/14/2021 Last EPDS Self [...] PM CDT Esha Grimm PA-C- See pt's CareShare message response. Please review and advise. Routed to PCP [facility] (Patient Advocate Liaison) [facility] * Telephone Encounter - Pao Joseph RN - 10/20/2023 12:49 PM CDT Esha Grimm PA-C- See pt's 360imagingt message. Please review and advise. Routed to PCP VJ Mart (Patient Advocate Liaison) [facility] documented in this encounter Plan of Treatment Upcoming Encounters Date Type Department Care Team (Late st Contact Info) Description 01/09/2024 10:15 AM CDT Office Visit [facility] Neurology [facility] [address], [address] [place] [address] Genny Hyman PA-C [facility] Epilepsy [facility] Emergency Department [address] [facility] [address] [place], [place] [address] [place] [address] [place] [address] 02/06/2024 10:00 AM CDT Office [facility] [address] [phone] Neil Kent MD 500 [place], [place] [address] 03/06/2024 3:00 PM CDT Office Visit [facility] [address] [place] [phone] Radha Lomeli, ECONOMIC SPECIALIST REHAB SERVICES AIDE [address] [place], [place] [address] 03/07/2024 9:00 AM CDT Hospital Encounter [facility] [address] [place] [address] 5th [place] [phone] Rocky Zepeda DO 500 [place], [place] [phone] 03/07/2024 9:00 AM CDT - 03/07/2024 9:30 AM CDT Surgery [facility] [address] [place] [address] 5th [place] [phone] Rocky Zepeda DO 500 [place], [place] [phone] Esophagoscopy, gastroscopy, duodenoscopy (EGD), combined Scheduled Procedures Name Priority Associated Diagnoses Date/Ti al ESOPHAGOGASTRODUODENOSCOPY Eosinophilic esophagitis Esophageal dysphagia 03/07/2024 9:00 AM CDT documented as of this encounter Visit Diagnoses Not on filedocumented in this encounter Additional Health Concerns Assessment Noted Time PHQ-9 Depression Total Score: 4 06/20/20 23 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 documented as of this encounter Care Teams Complaint Investigator Relationship Specialty Start Date End Date Esha Grimm PA-C [address] [place] [phone] PCP - General Family Medicine 05/04/23 Diana Desir, [facility] [address] [place] [address] Pharmacist Pharmacist 04/17/21 Rain Galaviz PA-C [address] [place] [address] [address] [facility]NOTE 2[facility] [address] Physician Bone Density Technician Dermatology 04/28/21 Tavia Wyatt MD [address] [place] [address] [address] [facility] [place] [address] Dermatology 07/14/21 Erica Farrell APRN REHAB SERVICES AIDE 6405 [facility] [address] [place] [address] Nurse Practitioner Cardiovascular Disease 09/09/21 Rich Barrett MD 516 [facility] [address] [place], [place] [address] Physician Ophthalmology 01/21/22 Neil Kent MD [address] [place], [place] [address] Dermatology 02/24/22 Diana Desir, [facility] 3033 [place] [address] Assigned MTM Pharmacist 04/07/22 Livan Sharif MD [address] [facility] [address] [place] [address] Cardiovascular Disease 05/14/22 Catherine Cm MD [address] [place] [address] Cardiovascular Disease 07/21/22 Valery Veronica, PAUcheC [address] [place] [address] Physician Bone Density Technician Dermatology 07/21/22 Brea Quinn APRN REHAB SERVICES AIDE [address] [place] [address] Nurse Practitioner Dermatology 09/21/22 Brea Quinn APRN REHAB SERVICES AIDE [address] [place] [address] Assigned Surgical Provider 10/09/22 [place] [address] [address] Assigned Musculoskeletal Provider 10/09/22 Alfonso Renteria MD 5775 [facility] 200 [place] [address] Assigned Neuroscience Provider 04/02/23 Radha Lomeli APRN REHAB SERVICES AIDE [address] [place] [address] Assigned Heart and Vascular Provider 05/28/23 Jelena David OD [address] [place] [address] Ophthalmology 06/15/23 Pao Joseph, VJ Personal Advocate & Liaison (PAL) Nurse 08/01/23 11/07/23 Esha Grimm PA-C [address] [place] [phone] Assigned PCP 07/16/23 Valery Veronica PA-C [address] [place] [address]60[address] Physician Bone Density Technician Dermatology 09/19/23 Rey Tay MD [address] [place] [address]7835 Gastroenterology 09/20/23 Rocky Zepeda DO [address] [place] [address] 732085 Physician Gastroenterology 09/20/23 Philip Dumont MD [address] [place] [address] 669325 Physician Ophthalmology 09/22/23 documented as of this encounter
--- OUTSIDE RECORDS SUMMARY | 2024-01-07 18:09 | XMS_ITS | Encounter Summary ---
Author Organization [place] Address [address] [place] [address] Care Team Providers Care In House Cra Name Role Phone Thang Diana Mayers [facility] Unavailable Rain Galaviz PA-C Unavailable Tavia Wyatt MD Unavailable Unavailable Erica Farrell APRN SENIOR ASIC ENGINEER Unavailable Rich Barrett MD Unavailable Neil Kent MD Unavailable Diana Desir Stanislav [facility] Unavailable [phone] Livan Sharif MD Unavailable Catherine Cm MD Unavailable + Valery Veronica PA-C Unavailable [phone] Brea Quinn C DEVELOPER SENIOR ASIC ENGINEER Unavailable Brea Quinn C DEVELOPER SENIOR ASIC ENGINEER Unavailable [phone] Jose Francisco Johnson MD Unavailable Alfonso Renteria MD Unavailable + [phone] Esha Grimm PA-C Primary Care Provider [phone] Radha Lomeli C DEVELOPER SENIOR ASIC ENGINEER Unavailable [phone] Jelena Daivd OD Unavailable [phone] Pao Joseph RN Unavailable Unavailable Esha Grimm PA-C Unavailable [phone] Valery Veronica PA-C Unavailable [phone] Rey Tay MD Unavailable Duane Rocky DO Unavailable Philip Dumont MD Unavailable Reason for Referral * Nutrition (Routine: Next available opening) - Pending Review Specialty Diagnoses / Procedures Referred By Contparviz mayers Referred To Contact Diagnoses Eosinophilic esophagitis Esophageal dysphagia Meredith Carrera PA-C [address] [place] [address] [place], [place] [address] [place] [address] Referral ID Status Reason Start Date Expiration Date V isits Requested Visits Authorized [id number] Pending Review 10/13/2023 10/12/2024 1 1 Scheduling Instructions EOE elimination diet Question Answer Nutritional instruct Other - use Comments Scheduling Instructions: [email or web address] will call you to coordinate your care as prescribed by your provider. If you don't hear from a financial representative within 2 business days, please call . Additional Information: EOE elimination diet Comments Please be aware that coverage of these services is subject to the terms and limitations of your health insurance plan. Call member services at your health plan with any benefit or coverage questions. [email or web address] will call you to coordinate your care as prescribed by your provider. If you don't hear from a financial representative within 2 business days, please call . * Consultation (Routine: Next available opening) - Pending Review Specialty Diagnoses / Procedures Referred By Qian mayers Referred To Contact Gastroenterology Diagnoses Eosinophilic esophagitis Esophageal dysphagia Meredith Carrera PA-C [address] [place], [place] [id number] Referral ID Status Reason Start Date Expiration Date V isits Requested Visits Authorized [id number] Pending Review 10/13/2023 10/12/2024 1 1 Scheduling Instructions EGD MAC Dr. Zepeda preferred Question Answer Service: Upper Endoscopy Upper Endoscopy Type: EGD Sedation Concerns: No medical conditions affecting sedation Sedation Type: Deep/MAC Sedation Reason for Upper Endoscopy: EGD MAC EOE. Now on Omeprazole 40mg twice daily. Please obtain at least 4 proximal and 4 distal biopseise of the esophagus.. Preferred Location: [facility] Scheduling Instructions: [facility] will call you to coordinate your care as prescribed by the provider. If you don? t hear from a financial representative within 2 business days, please call . Comments Please be aware that coverage of these services is subject to the terms and limitations of your health insurance plan. Call member services at your health plan with any benefit or coverage questions. [facility] will call you to coordinate your care as prescribed by the provider. If you don? t hear from a financial representative within 2 business days, please call . Reason for Visit * Reason Comments New Patient Encounter Details Date Type Department Care Team (Latest Contact Info) Description 10/13/2023 10:45 AM CDT Office Visit [facility] [address] [place] [address] Meredith Carrera PA-C [address] [place] [address] Eosinophilic esophagitis (Primary Dx); Esophageal dysphagia Social [...] How often do you attend chur or yazidi services? 1 to 4 times [...] Recorded PHQ-2 Score 0 06/20/2023 [facility] - Occupational [...] exercise at this level? 30 min 03/10/2023 Parnell Depression Scale Answer Date Recorded Parnell Depression Score 5 01/14/2021 Last EPDS Self [...] are summarized as follows: - Consultation with screen printing inspector to discuss elimination diet for EOE - [...] likelihood of reporting a positive COVID-19 test (Almario CV, Inessa WD, Yoli BMR. Am J Gastroenterol 2020;115:1744-7128).This was discussed with the patient in detail. The quality of research studies was described (retrospective vs prospective). Data from recent review article provided (uDane JA, John PO. Proton Pump Inhibitors in 2020: Pros, Cons, and Everything in Between. Foregut. November 2020. Doi:10.1177/[id number]). The value of joint decision making was [...] To schedule endoscopic procedures you may call: [phone] To schedule radiology (imaging) tests you may call: [phone] To schedule an ENT appointment you may call: [phone] Please call my nurse Jessa ([phone]), Mindy ([phone]) with any questions or concerns. Return to GI Clinic in 4 months to review your progress. Who do I call with any questions after my visit? Please be in touch if there are any further questions that arise following today's visit. There aremultiple ways to contact your gastroenterology care team. During business hours, you may reach a Gastroenterology nurse at [phone] and choose option 3. To schedule or reschedule an appointment, please call [phone]. You can always send a secure message through [email or web address] Application. [email or web address] Application messages are answered by your nurse or doctor typically within 24 hours. Please allow extra time on weekends and holidays. For urgent/emergent questions after business hours, you may reach the on-call GI Fellow by contacting the [facility] buncher operator at . How will I get the results of any tests ordered? You will receive all of your results. If you have signed up for [email or web address] Application, any tests ordered at your visit will be available to you after your physician reviews them. Typically this takes 1-2 weeks. Ifthere are urgent results that require a change in your care plan, your physician or nurse will callyou to discuss the next steps. What is [email or web address] Application? [email or web address] Application is a secure way for you to access all of your healthcare records from the [facility]. It is a web based computer program, so you can sign on to it from any location. It also allows you to send secure messages to your care team. I recommend signing up for [email or web address] Application access if you have not already done so and are comfortable with using a computer. How to I schedule a follow-up visit? If you did not schedule a follow-up visit today, please call [phone] to schedule a follow-up office visit. If you feel you received exceptional care and are interested in supporting the clinical and research goals of Meredith Carrera PA-C or the Division of Gastroenterology, Hepatology, and Nutrition please contact [email or web address] from the [facility] to discuss opportunities to donate. Sincerely, Meredith Carrera PA-C Division of Gastroenterology, Hepatology, and Nutrition [facility] documented in this encounter Progress Notes * Meredith Carrera PA-C - 10/13/2023 10:45 AM CDT Gastroenterology Visit for: Kim Johnson 2000 Reason for Visit: chief complaint Referred by: Jasvir / Mar [facility] [address] Patient Care Team: Esha Grimm PA-C as PCP - General (Family Medicine) Diana Desir RPH as Pharmacist (Pharmacist) Rain Galaviz PA-C as Physician Medical Physics Professor (Dermatology) Tavia Wyatt MD as (Dermatology) Erica aFrrell APRN CNP as Nurse Practitioner (Cardiovascular Disease) Rich Barrett MD as Physician (Ophthalmology) Neil Kent MD as (Dermatology) Diana Desir RPH as Assigned [facility] Pharmacist Livan Sharif MD as MD (Cardiovascular Disease) Catherine Cm MD as MD (Cardiovascular Disease) Valery Veronica PA-C as Physician Medical Physics Professor (Dermatology) Brea Quinn APRN CNP as Nurse Practitioner (Dermatology) Brea Quinn APRN SENIOR ASIC ENGINEER as Assigned Surgical Provider Jose Francisco Johnson MD as Assigned Musculoskeletal Provider Alfonso Renteria MD as Assigned Neuroscience Provider Radha Lomeli APRN SENIOR ASIC ENGINEER as Assigned Heart and Vascular Provider Jelena David OD as MD (Ophthalmology) Esha Grimm PA-C as Assigned PCP Pao Joseph RN as Personal Advocate & Liaison (PAL) (Nurse) Valery Veronica PA-C as Physician Medical Physics Professor (Dermatology) Rey Tay MD as MD (Gastroenterology) [...] Surgeon: Galo Burrell MD; Location: HEART CARDIAC LOSS PREVENTION AGENT ESOPHAGOSCOPY, GASTROSCOPY, DUODENOSCOPY (EGD), COMBINED N/A 06/26/2021 [...] I.U.D. Other Topics Concern Parent/sibling w/ CABG, VT or angioplasty before [...] 30 min Stress: Stress Concern Present (03/10/2023) [employer] [facility] - Occupational Stress Questionnaire Feeling of Stress : To some extent Social Connections: Moderately Isolated (03/10/2023) Social Connection and Isolation Panel [NHANES] Frequency of Communication with Friends and Family: Three times a week Frequency of Social Gatherings with Friends and Family: Twice a week Attends Holiness Services: 1 to 4 times per year [...] Medium Added automatically from request for surgery [id number] Left ureteral stone 05/27/2020 Priority: Medium Added automatically from request for surgery [id number] Head ache 02/18/2020 Priority: Medium Seizure (H) [...] is presenting as a new patient Dr. Tya with a chief complaint of reflux/dysphagia. #EoE #Hiatal Hernia - 3 cm EGD 09/12/2023 EREFS [id number]. Additional findings were notable for 3 cm [...] likelihood of reporting a positive COVID-19 test (Varinder CV, Inessa WD, Yoli BMR. Am J Gastroenterol 2020;115:8297-3706).This was discussed with the patient in detail. The quality of research studies was described (retrospective vs prospective). Data from recent review article provided (Duane MCGOWAN, John PO. Proton Pump Inhibitors in 2020: Pros, Cons, and Everything in Between. Foregut. November 2020. Doi:10.1177/[id number]). The value of joint decision making was [...] be to obtain consultation with Nelly [place] screen printing inspector. Pending would then consider Omeprazole 40 mg twice daily. Patient also carries diagnosis of psoriasis and has appointment with dermatology at the end of the month. She will plan to discuss the use of Dupixent for her dermatological concerns. After meeting with the dietitian and engine builder patient was asked to inform provider on [...] PA-C Division of Gastroenterology, Hepatology, and Nutrition [facility] Documentation assisted by voice recognition and documentation system. documented in this encounter Plan of Treatment Upcoming Encounters Date Type Department Care Team (Late st Contact Info) Description 01/09/2024 10:15 AM CDT Office Visit [facility] [place] [address] [facility], [address] [place] [phone] Genny Hyman PA-C [facility] Epilepsy [place] [facility] [address] [facility] [address] [place] [address] [place] [address] [facility] [address] [place], [place] [address] 02/06/2024 10:00 AM CDT [facility] [address] [phone] Neil Kent MD 500 [place], [place] [address] 03/06/2024 3:00 PM CDT Office Visit [facility] [address] [facility] [address] [place] [phone] Radha Lomeli, ARLENE SENIOR ASIC ENGINEER [address] [place], [place] [address] 03/07/2024 9:00 AM CDT Hospital Encounter [facility] 9[address] [facility] 5th [place] [phone] Rocky Zepeda DO 500 [place] [address] 03/07/2024 9:00 AM CDT - 03/07/2024 9:30 AM CDT Surgery [facility] [address] [place] [phone] Rocky Zepeda DO 500 [place], [place] [address] Esophagoscopy, gastroscopy, duodenoscopy (EGD), combined Scheduled Procedures Name Priority Associated Diagnoses Date/Ti me ESOPHAGOGASTRODUODENOSCOPY Eosinophilic esophagitis Esophageal dysphagia 03/07/2024 9:00 AM CDT Scheduled Referrals Name Type Priority Associated Diagnoses Orde r Schedule Adult GI Cosmetics Presser Referral - Procedure Only Referral Routine: Next [...] Total Score: 4 06/20/20 23 8:40 AM INKER AND OPAQUER documented as of this encounter Care Teams In House Cra Relationship Specialty Start Date End Date Esha Grimm PA-C [address] [place] [address] PCP - General Family Medicine 05/04/23 Diana Desir [facility] [address] [place] [address] Pharmacist Pharmacist 04/17/21 Rain Galaviz PA-C [address] [place] [address] ENMA KNUTSON [address] Physician Medical Physics Professor Dermatology 04/28/21 Tavia Wyatt MD [address] [place] [address] DR [facility] [facility] [address] Dermatology 07/14/21 Erica Farrell, C DEVELOPER SENIOR ASIC ENGINEER [address] [phone] [place] [address] Nurse Practitioner Cardiovascular Disease 09/09/21 Rich Barrett MD 516 [facility] 9A [place], [place] [phone] Physician Ophthalmology 01/21/22 Neil Kent MD 500 [place], [place] [phone] Dermatology 02/24/22 Diana Desir, [facility] [address] [place], [place] 98[address] Assigned MTM Pharmacist 04/07/22 Livan Sharif MD [address] [facility]00 [place], [place] 4[address] Cardiovascular Disease 05/14/22 Catherine Cm MD [address] 761385 Cardiovascular Disease 07/21/22 Valery Veronica, PA-C [address] [place], [place] [address] Physician Medical Physics Professor Dermatology 07/21/22 Brea Quinn APRN SENIOR ASIC ENGINEER 500 [place], [place] [address] Nurse Practitioner Dermatology 09/21/22 Brea Quinn APRN SENIOR ASIC ENGINEER 6401 [facility] ENMA RIDER [address] Assigned Surgical Provider 10/09/22 [place] [address] [address] [place] [address] Assigned Musculoskeletal Provider 10/09/22 Alfonso Renteria MD [address] [facility] 200 [place], [place] [address] Assigned Neuroscience Provider 04/02/23 Radha Lomeli APRN SENIOR ASIC ENGINEER [address] [facility] [address] [place] [address] Assigned Heart and Vascular Provider 05/28/23 Jelena David OD [address] [facility] [address] Ophthalmology 06/15/23 Pao Joseph, RN Personal Advocate & Liaison (PAL) Nurse 08/01/23 11/07/23 Esha Grimm PA-C [address] [place] [address] Assigned PCP 07/16/23 Valery Veronica PA-C [address] [place] [address]225 Physician Medical Physics Professor Dermatology 09/19/23 Rey Tay MD [address] [place] [address]285 Gastroenterology 09/20/23 Rocky Zepeda DO [address] [place] [address] 989645 Physician Gastroenterology 09/20/23 Philip Dumont MD [address] [place] [address] Physician Ophthalmology 09/22/23 documented as of this encounter
--- OUTSIDE RECORDS SUMMARY | 2024-01-07 18:09 | XMS_ITS | Encounter Summary ---
Author Organization [place] Address [address] [place] [address] Care Team Providers Care Back Maker Name Role Phone Thang Diana [place] [facility] Unavailable [phone] Rain Galaviz PA-C Unavailable Tavia Wyatt MD Unavailable Unavailable Erica Farrell APRN ACLS NURSE Unavailable Rich Barrett MD Unavailable Neil Kent MD Unavailable Diana Desir Stanislav [facility] Unavailable [phone] Livan Sharif MD Unavailable Catherine Cm MD Unavailable + Valery Veronica PA-C Unavailable [phone] Brea Quinn MECHANICAL APPLICATIONS ENGINEER ACLS NURSE Unavailable Brea Quinn MECHANICAL APPLICATIONS ENGINEER ACLS NURSE Unavailable Jose Francisco Johnson MD Unavailable Alfonso Renteria MD Unavailable + [phone] Esha Grimm PA-C Primary Care Provider Radha Lomeli MECHANICAL APPLICATIONS ENGINEER ACLS NURSE Unavailable [phone] Jelena David OD Unavailable Pao Joseph RN Unavailable Unavailable Esha Grimm PA-C Unavailable [phone] Valery Veronica PA-C Unavailable [phone] Rey Tay MD Unavailable Duane Rockyanne STEVENS Unavailable Philip Dumont MD Unavailable [phone] Encounter Details Date Type Department Care [...] do you attend [facility] or [facility] services? 1 to 4 [...] Date Recorded PHQ-2 Score 0 06/20/2023 [facility] Occupat ional Health - Occupational Stress [...] exercise at this level? 30 min 03/10/2023 [place] Depression Scale Answer Date Recorded [place] Depression Score 5 01/14/2021 Last EPDS Self [...] AM CDT Office Visit [facility] [address] [facility], [address] [place] [phone] Genny Hyman PA-C [facility] Epilepsy [facility] 5775 [facility] 255 [place], [place] 5[address] [place] [address] [facility] 300 [place], [place] [address] 02/06/2024 10:00 AM CDT Office [facility] [address] [phone] Neil Kent MD 500 [place], [place] [phone] 03/06/2024 3:00 PM CDT Office Visit [facility] Heart [facility] [address] [facility] [address] [place] [phone] Radha Lomeli, ARLENE ACLS NURSE [address] [facility] [address] [place], [place] [address] 03/07/2024 9:00 AM CDT Hospital Encounter [facility] 909 [facility] [address] 5th [place] [phone] Rocky Zepeda DO 500 [place], [place] [phone] 03/07/2024 9:00 AM CDT - 03/07/2024 9:[address] [facility] 909 [facility] 5th [place] [phone] Zepeda Rocky, DO 500 [place] [address] Esophagoscopy, gastroscopy, duodenoscopy (EGD), combined Scheduled Procedures Name Priority Associated Diagnoses Date/Ti mn ESOPHAGOGASTRODUODENOSCOPY Eosinophilic esophagitis Esophageal dysphagia 03/07/2024 9:00 AM CDT documented as of this encounter Visit Diagnoses Not on filedocumented in this encounter Additional Health Concerns Assessment Noted Time PHQ-9 Depression Total Score: 4 06/20/20 23 8:40 AM POKER DEALER documented as of this encounter Care Teams Back Maker Relationship Specialty Start Date End Date Esha Grimm PA-C [address] [place] [phone] PCP - General Family Medicine 05/04/23 Diana Desir, [facility] 30[address] [place] [address] Pharmacist Pharmacist 04/17/21 Rain Galaviz PA-C [address] [place] [address] [place] [address] Physician Knitted Garment Finisher Dermatology 04/28/21 Tavia Wyatt MD [address] [place] [address] [place] [address] Dermatology 07/14/21 Erica Farrell APRN ACLS NURSE 6405 [facility] [address] [place] [address] Nurse Practitioner Cardiovascular Disease 09/09/21 Rich Barrett MD 516 [facility] 9A [place], [place] [address] Physician Ophthalmology 01/21/22 Neil Kent MD 500 [place], [place] 207425 Dermatology 02/24/22 Diana Desir, [facility] 30[address] [place], [place] 206756 Assigned [place] Pharmacist 04/07/22 Livan Sharif MD [address] [facility]00 [place], [place] 0[address] Cardiovascular Disease 05/14/22 Catherine Cm MD [address] 965305 Cardiovascular Disease 07/21/22 Valery Veronica, PA-C 909 [place], [place] 906455 Physician Knitted Garment Finisher Dermatology 07/21/22 Brea Quinn APRN ACLS NURSE 500 [place], [place] 958435 Nurse Practitioner Dermatology 09/21/22 Brea Quinn APRN ACLS NURSE 6401 [facility] [place] 218342 Assigned Surgical Provider 10/09/22 [place] [address] [facility] 300 [place] [address] Assigned Musculoskeletal Provider 10/09/22 Alfonso Renteria MD 5775 [facility] 200 [place], [place] 938556 Assigned Neuroscience Provider 04/02/23 Radha Lomeli APRN ACLS NURSE 6405 [facility] [address] [place] [address]385 Assigned Heart and Vascular Provider 05/28/23 Jelena David OD [address] [place] [id number] Ophthalmology 06/15/23 Pao Joseph, VJ Personal Advocate & Liaison (PAL) Nurse 08/01/23 11/07/23 Esha Grimm PA-C [address] [place] [phone] Assigned PCP 07/16/23 Valery Veronica PA-C [address] [place] [address] 708355 Physician Knitted Garment Finisher Dermatology 09/19/23 Rey Tay MD [address] [place] [address] [phone] Gastroenterology 09/20/23 Rocky Zepeda DO [address] [place] [address] [phone] Physician Gastroenterology 09/20/23 Philip Dumont MD [address] [place] [address] Physician Ophthalmology 09/22/23 documented as of this encounter
--- OUTSIDE RECORDS SUMMARY | 2024-01-07 18:09 | XMS_ITS | Encounter Summary ---
Author Organization [place] Address [address] [place] [address] Care Team Providers Care Supervisor Cold Rolling Name Role Phone Thang Diana [place] [facility] Unavailable Rain Galaviz PA-C Unavailable Tavia Wyatt MD Unavailable Unavailable Erica Farrell APRN ELECTRICAL LOGGING OPERATOR Unavailable Rich Barrett MD Unavailable Neil Kent MD Unavailable Diana Desir Stanislav [facility] Unavailable [phone] Livan Sharif MD Unavailable Catherine Cm MD Unavailable + Valery Veronica PA-C Unavailable [phone] Brea Quinn WEB SIZER ELECTRICAL LOGGING OPERATOR Unavailable Brea Quinn WEB SIZER ELECTRICAL LOGGING OPERATOR Unavailable Jose Francisco Johnson MD Unavailable Alfonso Renteria MD Unavailable + [phone] Esha Grimm PA-C Primary Care Provider Radha Lomeli WEB SIZER ELECTRICAL LOGGING OPERATOR Unavailable [phone] Jelena David OD Unavailable Pao Joseph RN Unavailable Unavailable Esha Grimm PA-C Unavailable [phone] Valery Veronica PA-C Unavailable [phone] Rey Tay MD Unavailable ZepedaRocky Unavailable Philip Dumont MD Unavailable [phone] Reason for Visit * Reason Onset Date Comments Appointment 10/17/2023 Encounter Details Date Type Department Care Team (Late st Contact Info) Description 10/17/2023 Telephone [facility] [address] [place] [address] Esha Grimm PA-C [id number] [place] [phone] Appointment Social History Tobacco Use Types [...] Answer Date Recorded PHQ-2 Score 0 06/20/2023 [facility] - Occupational Stress [...] exercise at this level? 30 min 03/10/2023 [place] Depression Scale Answer Date Recorded [place] Depression Score 5 01/14/2021 Last EPDS Self [...] Description 01/09/2024 10:15 AM CDT Office Visit [facility] Neurology Clinics - [address], [address] [place] [address] Genny Hyman PA-C [facility] Epilepsy Care 5775 [facility] [address] 255 [place], [place] 083486 [place] [address] [place] [address] 02/06/2024 10:00 AM CDT Office Visit [facility] [address] [phone] Neil Kent MD 500 [place] [address] 03/06/2024 3:00 PM CDT Office Visit [facility] Heart [facility] [address] [facility] [address] [place] [phone] Radha Lomeli, WEB SIZER ELECTRICAL LOGGING OPERATOR [address] [place], [place] [address] 03/07/2024 9:00 AM CDT Hospital Encounter [address] [phone] Rocky Zepeda DO 500 [place] [address] 03/07/2024 9:00 AM CDT - 03/07/2024 9:30 AM CDT Surgery [address] [phone] Rocky Zepeda DO 500 [place] [address] Esophagoscopy, gastroscopy, duodenoscopy (EGD), combined Scheduled Procedures Name Priority Associated Diagnoses Date/Ti ny ESOPHAGOGASTRODUODENOSCOPY Eosinophilic esophagitis Esophageal dysphagia 03/07/2024 9:00 AM CDT documented as of this encounter Visit Diagnoses Not on filedocumented in this encounter Additional Health Concerns Assessment Noted Time PHQ-9 Depression Total Score: 4 06/20/20 23 8:40 AM NETWORK 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 documented as of this encounter Care Teams Supervisor Cold Rolling Relationship Specialty Start Date End Date Esha Grimm PA-C [address] [place] [address] PCP - General Family Medicine 05/04/23 Diana Desir, [facility] [address] [place] [address] Pharmacist Pharmacist 04/17/21 Rain Galaviz PA-C [address] [place] [address] [address] [place] [address] Physician Business Analytics Specialist Dermatology 04/28/21 Tavia Wyatt MD [address] [place] [address] [place] [address] Dermatology 07/14/21 Erica Farrell APRN ELECTRICAL LOGGING OPERATOR [address] [place] 62[address] Nurse Practitioner Cardiovascular Disease 09/09/21 Rich Barrett MD [address] [place] [address] 975305 Physician Ophthalmology 01/21/22 Neil Kent MD 500 [place], [place] 370875 Dermatology 02/24/22 Diana Desir, [facility] [address] [place] [address] Assigned MTM Pharmacist 04/07/22 Livan Sharif MD [address] [facility] [address] [place] [address] Cardiovascular Disease 05/14/22 Catherine Cm MD 6405 [facility] [address] [place] [address] Cardiovascular Disease 07/21/22 Valery Veronica, PAUcheC 909 [place], [place] 408275 Physician Business Analytics Specialist Dermatology 07/21/22 Brea Quinn APRN ELECTRICAL LOGGING OPERATOR [address] [place] [address] 972975 Nurse Practitioner Dermatology 09/21/22 Brea Quinn APRN ELECTRICAL LOGGING OPERATOR 6401 [place] [address] Assigned Surgical Provider 10/09/22 [place] [address] [address] [place] [address] Assigned Musculoskeletal Provider 10/09/22 Alfonso Renteria MD 5775 [facility] 200 [place], [place] 544406 Assigned Neuroscience Provider 04/02/23 Radha Lomeli APRN ELECTRICAL LOGGING OPERATOR [address] [place] 6110100 [place] 907915 Assigned Heart and Vascular Provider 05/28/23 Jelena David OD [address] [place] [address] MD Ophthalmology 06/15/23 Pao Joseph, RN Personal Advocate & Liaison (PAL) Nurse 08/01/23 11/07/23 Esha Grimm PA-C [address] [place] [address] Assigned PCP 07/16/23 Valery Veronica PA-C [address] [place] [address] 690635 Physician Business Analytics Specialist Dermatology 09/19/23 Rey Tay MD [address] [place] [address] 016425 Gastroenterology 09/20/23 Rocky Zepeda DO [address] [place] [address] 530545 Physician Gastroenterology 09/20/23 Philip Dumont MD [address] [place] [address] 205915 Physician Ophthalmology 09/22/23 documented as of this encounter
--- OUTSIDE RECORDS SUMMARY | 2024-01-07 18:10 | XMS_ITS | Encounter Summary ---
Author Organization [place] Address [address] [place] [address] Care Team Providers Care Park Warden Name Role Phone Thang Diana [place] [facility] Unavailable Rain Galaviz PA-C Unavailable Tavia Wyatt MD Unavailable Unavailable Erica Farrell APRN STEAM SETTER Unavailable Rich Barrett MD Unavailable Neil Kent MD Unavailable Diana Desir Stanislav [facility] Unavailable [phone] Livan Sharif MD Unavailable Catherine Cm MD Unavailable + Valery Veronica PA-C Unavailable [phone] Brea Quinn DRAPERY ROD ASSEMBLER STEAM SETTER Unavailable Brea Quinn DRAPERY ROD ASSEMBLER STEAM SETTER Unavailable Jose Francisco Johnson MD Unavailable Alfonso Renteria MD Unavailable + [phone] Esha Grimm PA-C Primary Care Provider Radha Lomeli DRAPERY ROD ASSEMBLER STEAM SETTER Unavailable [phone] Jelena David OD Unavailable [phone] Pao Joseph RN Unavailable Unavailable Esha Grimm PA-C Unavailable [phone] Valery Veronica PA-C Unavailable Rey Tay MD Unavailable Rocky Zepeda DO Unavailable Philip Dumont MD Unavailable [phone] Reason for Visit * Reason Onset Date Comments Appointment 10/03/2023 New Esophageal P t Encounter Details Date Type Department Care Team (Late st Contact Info) Description 10/03/2023 Telephone [facility] Gastroenterology Clinic [address]th [place] [address] Rocky Zepeda DO 500 [place] [address] Appointment (New Esophageal Pt) Social [...] Answer Date Recorded PHQ-2 Score 0 06/20/2023 [facility] - Occupational Stress Questionnaire Answer [...] exercise at this level? 30 min 03/10/2023 [place] Depression Scale Answer Date Recorded [place] Depression Score 5 01/14/2021 Last EPDS Self [...] Richar Schafer - 10/04/2023 9:19 AM CDT Fire Control System Installer called to offer Pt a sooner appointment with Meredith Carrera, in-person. Pt accepted an appointment with Meredith Carrera on 10/06/2023 at 7:30 Am. * Telephone Encounter - Richar Schafer - 10/03/2023 1:44 PM CDT Fire Control System Installer received a message from VJ Yun to help get Pt scheduled for a sooner appointment with or Meredith Carrera. This is a new Pt. Fire Control System Installer called and talked with Pt. Fire Control System Installer tried to offer sooner appointments with Meredith Carrera virtually but Pt declined. Pt told Fire Control System Installer that per Pt's conversation with the nurse (Jessa Yun), Pt needed to be seen in person. Fire Control System Installer informed Pt that Fire Control System Installer will connect back with the clinic and reach back out to the Pt some time this week. Pt expressed understanding of the plan. documented in this encounter Plan of Treatment Upcoming Encounters Date Type Department Care Team (Late st Contact Info) Description 01/09/2024 10:15 AM CDT Office Visit [facility] Neurology [facility] [address] [facility], [address] [place] [phone] Genny Hyman PA-C [facility] 5775 [facility] [address] [place], [place] [address] [place] [address] [facility] [address] 300 [place] [address] 02/06/2024 10:00 AM CDT Office Visit [facility] [address] [phone] Neil Kent MD 500 [place], [place] 3[address]85 03/06/2024 3:00 PM CDT Office Visit [facility] Heart [facility] [address] [facility] [address] [place] [phone] Radha Lomeli, ARLENE STEAM SETTER [address] [place] [address] 03/07/2024 9:00 AM CDT Hospital Encounter [facility] 909 [facility] 5th [place] [phone] Rocky Zepeda DO 500 [place], [place] [address]40[address] 03/07/2024 9:00 AM CDT - 03/07/2024 9:30 AM CDT Surgery [facility] [address] [place] [address] 5th [place] [address] Rocky Zepeda DO 500 [place], [place] [address] Esophagoscopy, gastroscopy, duodenoscopy (EGD), combined Scheduled Procedures Name Priority Associated Diagnoses Date/Ti mn ESOPHAGOGASTRODUODENOSCOPY Eosinophilic esophagitis Esophageal dysphagia 03/07/2024 9:00 AM CDT documented as of this encounter Visit Diagnoses Not on filedocumented in this encounter Additional Health Concerns Assessment Noted Time PHQ-9 Depression Total Score: 4 06/20/20 8:40 AM BROADCAST DESIGNER documented as of this encounter Care Teams Park Warden Relationship Specialty Start Date End Date Esha Grimm PA-C [address] [place] [address] PCP - General Family Medicine 05/04/23 Diana Desir, [facility] [address] [place] [address] Pharmacist Pharmacist 04/17/21 Rain Galaviz PA-C [address] [place] [address] [address] [place] [address] Physician Acetylene Cylinder Packing Mixer Dermatology 04/28/21 Tavia Wyatt MD [address] [place] [address] [address] [place] [address] Dermatology 07/14/21 Erica Farrell APRN STEAM SETTER 6405 [facility] [address] [place] [address] Nurse Practitioner Cardiovascular Disease 09/09/21 Rich Barrett MD 516 [facility] 9A [place] [address] Physician Ophthalmology 01/21/22 Neil Kent MD 500 [place] [address] Dermatology 02/24/22 [facility] 3033 [place] [address] Assigned [place] Pharmacist 04/07/22 Livan Sharif MD 6405 [facility] [address] [place] [phone] [place], [place] [address]415 Cardiovascular Disease 05/14/22 Catherine Cm MD [address] 8927[address] Cardiovascular Disease 07/21/22 Valery Veronica, PA-C 909 [place] [address] Physician Acetylene Cylinder Packing Mixer Dermatology 07/21/22 Brea Quinn APRN STEAM SETTER 500 [place] [address] Nurse Practitioner Dermatology 09/21/22 Brea Quinn APRN STEAM SETTER [address] [place] [address] Assigned Surgical Provider 10/09/22 [place] [address] [place] [address] [address] Assigned Musculoskeletal Provider 10/09/22 Alfonso Renteria MD 5775 [facility] 200 [place] [address] Assigned Neuroscience Provider 04/02/23 Radha Lomeli APRN STEAM SETTER [address] [place] [address] Assigned Heart and Vascular Provider 05/28/23 Jelena David OD [address] [facility] [place] [address] Ophthalmology 06/15/23 Pao Joseph, VJ Personal Advocate & Liaison (PAL) Nurse 08/01/23 11/07/23 Esha Grimm PA-C [address] [place] [phone] Assigned PCP 07/16/23 Valery Veronica PA-C 909 [place], [place] 993575 Physician Acetylene Cylinder Packing Mixer Dermatology 09/19/23 Rey Tay MD [address] [place] [address] Gastroenterology 09/20/23 Rocky Zepeda DO [address] [place] [place] [address] Physician Gastroenterology 09/20/23 Philip Dumont MD [address] [place] [address] 462815 Physician Ophthalmology 09/22/23 documented as of this encounter
--- OUTSIDE RECORDS SUMMARY | 2024-01-07 18:10 | XMS_ITS | Encounter Summary ---
Author Organization [place] Address [address] [place] [address] Care Team Providers Care Affiliate Marketing Specialist Name Role Phone Thang Diana [place] [facility] Unavailable Rain Galaviz PA-C Unavailable [phone] Tavia Wyatt MD Unavailable Unavailable Erica Farrell APRN VICE PRESIDENT OF BRAND MANAGEMENT Unavailable Rich Barrett MD Unavailable Neil Kent MD Unavailable Diana Desir Stanislav [facility] Unavailable [phone] Livan Sharif MD Unavailable Cahterine Cm MD Unavailable + Valery Veronica PA-C Unavailable [phone] Brea Quinn OPTIMIZATION MANAGER VICE PRESIDENT OF BRAND MANAGEMENT Unavailable [phone] Brea Quinn OPTIMIZATION MANAGER VICE PRESIDENT OF BRAND MANAGEMENT Unavailable Jose Francisco Johnson MD Unavailable Alfonso Renteria MD Unavailable + [phone] Esha Grimm PA-C Primary Care Provider [phone] Radha Lomeli OPTIMIZATION MANAGER VICE PRESIDENT OF BRAND MANAGEMENT Unavailable [phone] Jelena David OD Unavailable Pao Joseph RN Unavailable Unavailable Esha Grimm Adam PA-C Unavailable [phone] Valery Veronica PA-C Unavailable [phone] Rey Tay MD Unavailable Rocky Zepeda DO Unavailable Philip Dumont MD Unavailable [phone] Meredith Carrera PA-C Unavailable [phone] Neil Kent MD Unavailable Juan Pablo Emmanuel MD Unavailable [phone] Encounter Details Date Type Department Care Team (Late st Contact Info) Description 09/08/2023 MyC Medical Advice [facility] [address]th [place] [address] Marija Polanco, VJ Social History Tobacco Use Types Packs/Day [...] Answer Date Recorded PHQ-2 Score 0 06/20/2023 [facility] - Occupational Stress Questionnaire Answer Date Recorded [...] exercise at this level? 30 min 03/10/2023 [place] Depression Scale Answer Date Recorded [place] Depression Score 5 01/14/2021 Last EPDS Self [...] Description 01/09/2024 10:15 AM CDT Office Visit [facility] Neurology [address], [address] [place] [address] [facility] Epilepsy [facility] 5775 [facility] 255 [place], [place] 14[address]36 [place] [address] [facility] 300 [place], [place] [address] 02/06/2024 10:00 AM CDT Office Visit [facility] [address] [phone] Neil Kent MD 500 [place], [place] 4189[address] 03/06/2024 3:00 PM CDT Office Visit [facility] Heart [facility] [address] [facility] [address] [place] [address] Radha Lomeli APRN VICE PRESIDENT OF BRAND MANAGEMENT [address] [place] [address] 03/07/2024 9:00 AM CDT Hospital Encounter [facility] [place] 909 [facility] 5th [place] [address] Rocky Zepeda, DO 500 [place], [place] 9[address] 03/07/2024 9:00 AM CDT - 03/07/2024 9:30 AM CDT Surgery [facility] 909 [facility] 5th [place] [phone] Rocky Zepeda, DO 500 [place], [place] 6[address] Esophagoscopy, gastroscopy, duodenoscopy (EGD), combined Scheduled Procedures [...] Total Score: 4 06/20/20 23 8:40 AM PROFESSOR OF EXERCISE SCIENCE documented as of this encounter Care Teams Affiliate Marketing Specialist Relationship Specialty Start Date End Date Esha Grimm PA-C [address] [place] [address] PCP - General Family Medicine 05/04/23 Diana Desir [facility] [address] [place] [address] Pharmacist Pharmacist 04/17/21 Rain Galaviz PA-C [address] [place] [address] [address] [place] [address] Physician Scheduler Conveyor Dermatology 04/28/21 Tavia Wyatt MD [address] [place] [address] [address] [place] [address] Dermatology 07/14/21 Erica Farrell APRN VICE PRESIDENT OF BRAND MANAGEMENT [address] [place], [place] 6[address] Nurse Practitioner Cardiovascular Disease 09/09/21 Rich Barrett MD [address] [place] [address] 871455 Physician Ophthalmology 01/21/22 Neil Kent MD [address] [place] [address] 216865 Dermatology 02/24/22 [facility] [address] [place] [address] 736836 Assigned [place] Pharmacist 04/07/22 Livan Sharif MD [address], [facility] [place] 128705 Cardiovascular Disease 05/14/22 Catherine Cm MD [address] [facility] [place] [address]35 Cardiovascular Disease 07/21/22 Valery Veronica PA-C [address] [place] [address] Physician Scheduler Conveyor Dermatology 07/21/22 Brea Quinn APRN VICE PRESIDENT OF BRAND MANAGEMENT 500 [place] [address] Nurse Practitioner Dermatology 09/21/22 Brea Quinn APRN VICE PRESIDENT OF BRAND MANAGEMENT 6401 [place] [address] Assigned Surgical Provider 10/09/22 [place] [address] [address] [facility] 300 [place] [address] Assigned Musculoskeletal Provider 10/09/22 Alfonso Renteria MD 5775 [facility] 200 [place] [address] Assigned Neuroscience Provider 04/02/23 Radha Lomeli APRN VICE PRESIDENT OF BRAND MANAGEMENT [address] [place] 9365600 [place] [address] Assigned Heart and Vascular Provider 05/28/23 Jelena David OD [address] [facility] [place] [address] Ophthalmology 06/15/23 Pao Joseph, VJ Personal Advocate & Liaison (PAL) Nurse 08/01/23 11/07/23 Esha Grimm PA-C [address] [place] [address] Assigned PCP 07/16/23 Valery Veronica PA-C [address] [place] [address] Physician Scheduler Conveyor Dermatology 09/19/23 Rey Tay MD [address] [place] [address] MD Gastroenterology 09/20/23 Rocky Zepeda DO [address] [place] [address] Physician Gastroenterology 09/20/23 Philip Dumont MD [address] [place] [address] Physician Ophthalmology 09/22/23 Meredith Carrera, PA-C [address] [place] [address] Assigned Gastroenterology Provider 11/01/23 Neil Kent MD [address] [place] [address] Dermatology 11/02/23 [place] [address] [place], [place] [address] Neurological Surgery 12/26/23 documented as of this encounter
--- OUTSIDE RECORDS SUMMARY | 2024-01-07 18:10 | XMS_ITS | Encounter Summary ---
Author Organization [facility] Address [address] [place] [address] Care Team Providers Care Entertainment Reporter Name Role Phone Thang Diana [place] [facility] Unavailable Rain Galaviz PA-C Unavailable Tavia Wyatt MD Unavailable Unavailable Erica Farrell APRN KILN CAR UNLOADER Unavailable Rich Barrett MD Unavailable Neil Kent MD Unavailable Diana Desir Stanislav [facility] Unavailable [phone] Livan Sharif MD Unavailable Catherine Cm MD Unavailable + Valery Veronica PA-C Unavailable [phone] Brea Quinn WATER POLLUTION CONTROL TECHNICIAN KILN CAR UNLOADER Unavailable Brea Quinn WATER POLLUTION CONTROL TECHNICIAN KILN CAR UNLOADER Unavailable Jose Francisco Johnson MD Unavailable Alfonso Renteria MD Unavailable + [phone] Esha Grimm PA-C Primary Care Provider Radha Lomeli WATER POLLUTION CONTROL TECHNICIAN KILN CAR UNLOADER Unavailable [phone] FrankieJelenae OD Unavailable Pao Joseph RN Unavailable Unavailable Esha Grimm PA-C Unavailable [phone] Valery Veronica PA-C Unavailable Rey Tay MD Unavailable Rocky Zepeda DO Unavailable Philip Dumont MD Unavailable [phone] Reason for Visit * Reason Onset Date Comments Previsit 10/06/2023 Encounter Details Date Type Department Care Team (Late st Contact Info) Description 10/06/2023 PRE VISIT [facility] [address] [place] [address] Rocky Zepeda DO [address] [place] [address] Previsit Social History Tobacco Use [...] PHQ-2 Score 0 06/20/2023 [facility] [...] exercise at this level? 30 min 03/10/2023 [place] Depression Scale Answer Date Recorded [place] Depression Score 5 01/14/2021 Last EPDS Self [...] Referring Provider: Rey Tay MD Referring Clinic: [facility] GI Reason for Visit/Diagnosis: eosinophilic esophagitis FUTURE VISIT INFORMATION: Appointment Date: 10/06/23 Appointment Time: 7:30 AM NOTES STATUS DETAILS OFFICE NOTE from Referring Provider Internal 09/20/23 Result Note with Rey Tay MD OFFICE NOTE from Other Specialist Internal 09/28/23 - Nurse Triage with Yuliana Tay RN at [facility] Nurse Advisors 06/28/23 - UC OV with Amaris Pascal PA-C at [facility] 04/18/23 - PCC OV with Lauren Claudio PA-C at [facility] 12/17/21 - Nurse Triage with Marija Edgar APRN CNP at [facility] HOSPITAL DISCHARGE SUMMARY/ ED VISITS Internal 05/19/23 - [facility] ED visit with Medhat Neal MD 01/18/21 - [facility] ED visit with Francois Caputo PA-C MEDICATION LIST Internal ENDOSCOPY Internal 09/12/23, 06/26/21 - EGD PERTINENT LABS Internal 09/07/23 - CBCPD; BMP PATHOLOGY REPORTS (RELATED) Internal 3/4/24 - EGD bx IMAGING (CT, MRI, EGD, [...] CDT Office Visit [facility] Neurology [facility] [address] [facility], [address] [place] [phone] Genny [facility]yman PA-C [facility] 5775 [facility] 255 [place], [place] 7[address] [place] [address] [address] [place], [place] 6[address] 02/06/2024 10:00 AM CDT Office Visit [facility] [address] [phone] Neil Kent MD 500 [place], [place] [address] 03/06/2024 3:00 PM CDT Office Visit [facility] Heart [facility] [address] [facility] [address] [place] [phone] Radha Lomeli APRN KILN CAR UNLOADER [address] [place], [place] [address] 03/07/2024 9:00 AM CDT Hospital Encounter [facility] [address] [facility] [address] 5th [place] [phone] Rocky Zepeda DO 500 [place], [place] [address] 03/07/2024 9:00 AM CDT - 03/07/2024 9:30 AM CDT [facility] [address] [facility] [address] 5th [place] [phone] Rocky Zepeda DO 500 [place] [address] Esophagoscopy, gastroscopy, duodenoscopy (EGD), combined Scheduled Procedures Name Priority Associated Diagnoses Date/Ti ar ESOPHAGOGASTRODUODENOSCOPY Eosinophilic esophagitis Esophageal dysphagia 03/07/2024 9:00 AM CDT documented as of this encounter Visit Diagnoses Not on filedocumented in this encounter Additional Health Concerns Assessment Noted Time PHQ-9 Depression Total Score: 4 06/20/20 23 8:40 AM LITHOGRAPHIC PRESS 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 documented as of this encounter Care Teams Entertainment Reporter Relationship Specialty Start Date End Date Esha Grimm PA-C [address] [place] [address] PCP - General Family Medicine 05/04/23 Diana Desir, [facility] [address] [place] [address] Pharmacist Pharmacist 04/17/21 Rain Galaviz PA-C [address] [place] [address] [address] [place] [address] Physician Certified Surgical Assistant Dermatology 04/28/21 Tavia Wyatt MD [address] [place] [address] [address] [place] [address] Dermatology 07/14/21 Erica Farrell APRN KILN CAR UNLOADER [address] [place], [place] [address] Nurse Practitioner Cardiovascular Disease 09/09/21 Rich Barrett MD 516 [facility] [address]A [place], [place] [address] Physician Ophthalmology 01/21/22 Neil Kent MD 500 [place], [place] 326425 Dermatology 02/24/22 Diana Desir, [facility] 3033 [place], [place] 848[address] Assigned [facility] Pharmacist 04/07/22 Livan Sharif MD [address] [place] [address] Cardiovascular Disease 05/14/22 Catherine Cm MD [address] [place] [address] Cardiovascular Disease 07/21/22 Valery Veronica, PA-C 909 [place], [place] [address] Physician Certified Surgical Assistant Dermatology 07/21/22 Brea Quinn APRN KILN CAR UNLOADER 500 [place], [place] [address] Nurse Practitioner Dermatology 09/21/22 Brea Quinn APRN KILN CAR UNLOADER 6401 [facility] [address] Assigned Surgical Provider 10/09/22 [place] [address] [address] [place] [address] Assigned Musculoskeletal Provider 10/09/22 Alfonso Renteria MD 5775 [facility] 200 [place], [place] 17[address] Assigned Neuroscience Provider 04/02/23 Radha Lomeli APRN KILN CAR UNLOADER 6405 [facility] [address] [place] [address] Assigned Heart and Vascular Provider 05/28/23 Jelena David OD [address] [place] [address] Ophthalmology 06/15/23 Pao Joseph, VJ Personal Advocate & Liaison (PAL) Nurse 08/01/23 11/07/23 Esha Grimm PA-C [address] [place] [address] Assigned PCP 07/16/23 Valery Veronica PA-C 909 [place], [place] 2832[address] Physician Certified Surgical Assistant Dermatology 09/19/23 Rey Tay MD 909 [place], [place] 5[address] Gastroenterology 09/20/23 Rocky Zepeda DO [address] [place] [address] Physician Gastroenterology 09/20/23 Philip Dumont MD [address] [place] [address] Physician Ophthalmology 09/22/23 documented as of this encounter
--- OUTSIDE RECORDS SUMMARY | 2024-01-07 18:10 | XMS_ITS | Encounter Summary ---
Author Organization [place] Address [address] [place] [address] Care Team Providers Care Environmental Sampler Name Role Phone Thang Diana [place] [facility] Unavailable Rain Galaviz PA-C Unavailable [phone] Tavia Wyatt MD Unavailable Unavailable Erica Farrell APRN ROCKET ENGINE COMPONENT MECHANIC Unavailable Rich Barrett MD Unavailable Neil Kent MD Unavailable Diana Desir Stanislav [facility] Unavailable [phone] Livan Sharif MD Unavailable Catherine Cm MD Unavailable + Valery Veronica PA-C Unavailable [phone] Brea Quinn CASHIER TICKET SELLING ROCKET ENGINE COMPONENT MECHANIC Unavailable Brea Quinn CASHIER TICKET SELLING ROCKET ENGINE COMPONENT MECHANIC Unavailable Jose Francisco Johnson MD Unavailable Alfonso Renteria MD Unavailable + [phone] Esha Grimm PA-C Primary Care Provider Radha Lomeli CASHIER TICKET SELLING ROCKET ENGINE COMPONENT MECHANIC Unavailable [phone] Jelena David OD Unavailable Pao Joseph RN Unavailable Unavailable Esha Grimm PA-C Unavailable [phone] Valery Veronica PA-C Unavailable [phone] Rey Tay MD Unavailable Duane Rocky Unavailable Philip Dumont MD Unavailable [phone] Reason for Visit * Reason Comments [...] Description 10/05/2023 11:00 AM CDT Office Visit [facility] [place] [address] [place] [address] Amalia Zayas MD [address] [facility] [place] [address] Vulvovaginal candidiasis (Primary Dx); Dysuria; [...] you attend chur ch or samaritan services? 1 to 4 times [...] Answer Date Recorded PHQ-2 Score 0 06/20/2023 [facility] [...] exercise at this level? 30 min 03/10/2023 [place] Depression Scale Answer Date Recorded [place] Depression Score 5 01/14/2021 Last EPDS Self [...] in an abandoned building, in an overnight fdc, or couch-surfing.) Yes 07/14/2023 Are you worried [...] Body Mass Index 29.86 09/07/2023 6:20 PM BELT AND LINK ASSEMBLY SUPERVISOR documented in this encounter Patient Instructions * [...] you. Recommended discussing recurrent BV with her mma fighter. SUBJECTIVE: Kim Johnson is a 23 year old female who presents to today with sore throat x 2 days [...] AM CDT Office Visit [facility] Neurology [facility] [address] [facility], [address] [place] [phone] Genny Hyman PA-C [facility] Epilepsy [facility] 5775 [facility] 255 [place], [place] [address] [place] [address] [address] [place] [address] 02/06/2024 10:00 AM CDT [facility] [address] [phone] Neil Kent MD 500 [place], [place] [address] 03/06/2024 3:00 PM CDT Office Visit [facility] Heart [facility] [address] [facility] [address] [place] [phone] Radha Lomeli, CASHIER TICKET SELLING ROCKET ENGINE COMPONENT MECHANIC [address] [facility] [address] [place] [address] 03/07/2024 9:00 AM CDT Hospital Encounter [facility] [address] [facility] [address] 5th [place] [phone] Rocky Zepeda DO 500 [place], [place] [address] 03/07/2024 9:00 AM CDT - 03/07/2024 9:30 AM CDT Surgery [facility] [address] [facility] [address] 5th [place] [phone] Rocky Zepeda, DO 500 [place] [address] Esophagoscopy, gastroscopy, duodenoscopy (EGD), combined Scheduled Procedures [...] Xpress Strep A test, performed on the Opez?? [employer] Systems, is a rapid, qualitative in vitro [...] - MICRO GENERAL ORDERABLES Performing Organization Address City/[facility] Co de Phone Number [facility] Inf. Diseases Diag. Lab 500 [facility] [place] [address] [place] [address] * Urine Culture (10/05/2023 11:41 AM CDT) Culture <10,000 CFU/mL Mixture of Urogenital Darlene 10/06/2023 11:51 AM CDT [facility] Urine URINE SPECIMEN OBTAINED BY CLEAN CATCH PROCEDURE / Unknown Non-blood Collection / Unknown 10/05/2023 11:41 AM CDT 10/05/2023 11:52 AM CDT Amalia Zayas MD LAB - MICRO GENERAL ORDERABLES Performing Organization Address City/[facility] Co de Phone Number [facility] Inf. Diseases Diag. Lab [address] [place] [address], Room [place] [phone] * (ABNORMAL) Urine Microscopic Exam (10/05/2023 [...] ORDERABL ES LABORATORY [facility] Lab [address] [facility] (no room number, [address]st floor [address] [facility]) [place] [id number], [place] [phone] * Streptococcus A Rapid Screen w/Reflex to PCR - Clinic Collect (10/05/2023 11:41 AM CDT) Pathologist [facility] A Strep antigen Negative Negative 10/05/2023 12:07 PM CDT LABORATORY Swab STRUCTURE OF ANTERIOR PORTION OF NECK / Unknown Non-blood Collection / Unknown 10/05/2023 11:41 AM CDT 10/05/2023 11:59 AM CDT Amalia Zayas MD LAB - MICRO GENERAL ORDERABLES LABORATORY [facility] Lab [address] [place] [address] (no room number, 1st floor of clinic) [place] [id number], [place] [phone] * (ABNORMAL) Wet prep - lab collect [...] MD LAB - MICRO GENERAL ORDERABLES LABORATORY [facility] Lab [address] [facility] (no room number, 1st floor of clinic) [place] [address], [place] [phone] * (ABNORMAL) UA Macroscopic with reflex to [...] 10/05/2023 11:52 AM CDT LV LABORATORY Specific [place] Urine 1.010 1.003 - 1.035 10/05/2023 11:52 [...] Zayas MD LAB - URINE ORDERABL ES [facility] [place] Lab [address] [facility] Lab (no room number, 1st floor of clinic) [place] [address], [place] [phone] documented in this encounter Visit Diagnoses Diagnosis Vulvovaginal candidiasis- Primary Candidiasis of vulva and vagina Dysuria Itching Unspecified pruritic disorder Throat pain Eosinophilic esophagitis Esophageal dysphagia Dysphagia, pharyngoesophageal phase documented in this encounter Additional Health Concerns Assessment Noted Time PHQ-9 Depression Total Score: 4 06/20/20 23 8:40 AM BELT AND LINK ASSEMBLY SUPERVISOR documented as of this encounter Care Teams Environmental Sampler Relationship Specialty Start Date End Date Esha Grimm PA-C [address] [place] [address] PCP - General Family Medicine 05/04/23 Diana Desir, [facility] [address] [place], [place] [address] Pharmacist Pharmacist 04/17/21 Rain Galaviz PA-C [address] [place] [address] [address] [place] [address] Physician Game Producer Dermatology 04/28/21 Tavia Wyatt MD [address] [place] [address] [address] [place] [address] Dermatology 07/14/21 Erica Farrell APRN ROCKET ENGINE COMPONENT MECHANIC 6405 [facility] [address] [place] [address] Nurse Practitioner Cardiovascular Disease 09/09/21 Rich Barrett MD 516 [facility] [place], [place] 97[address] Physician Ophthalmology 01/21/22 Neil Kent MD 500 [place] [address] Dermatology 02/24/22 Diana [facility] 3033 [place], [place] 091546 Assigned [place] Pharmacist 04/07/22 Livan Sharif MD 6405 [facility] [address] [facility] [address] [place], [place] 264[address] Cardiovascular Disease 05/14/22 Catherine Cm MD [address] 5868[address] Cardiovascular Disease 07/21/22 Valery Veronica, PA-C 909 [place], [place] [address] Physician Game Producer Dermatology 07/21/22 Brea Quinn APRN ROCKET ENGINE COMPONENT MECHANIC 500 [place] [address] Nurse Practitioner Dermatology 09/21/22 Brea Quinn APRN ROCKET ENGINE COMPONENT MECHANIC 6401 [facility] [place], [place] [address] Assigned Surgical Provider 10/09/22 [place] [address] [place] [address] Assigned Musculoskeletal Provider 10/09/22 Alfonso Renteria MD 5775 [facility] 200 [place] [address] Assigned Neuroscience Provider 04/02/23 Radha Lomeli APRN ROCKET ENGINE COMPONENT MECHANIC 6405 [facility] [address] [place] [address] Assigned Heart and Vascular Provider 05/28/23 Jelena David OD [address] [place] [address] Ophthalmology 06/15/23 Pao Joseph, VJ Personal Advocate & Liaison (PAL) Nurse 08/01/23 11/07/23 Esha Grimm PA-C [address] [place] [address] Assigned PCP 07/16/23 Valery Veronica PA-C 9 [place] [address] Physician Game Producer Dermatology 09/19/23 Rey Tay MD 909 [place] [address] Gastroenterology 09/20/23 Rocky Zepeda DO [address] [place] [address] 722075 Physician Gastroenterology 09/20/23 Philip Dumont MD [address] [place] [address] Physician Ophthalmology 09/22/23 documented as of this encounter
--- OUTSIDE RECORDS SUMMARY | 2024-01-07 18:10 | XMS_ITS | Encounter Summary ---
Author Organization [facility] Address [address] [place] [address] Care Team Providers Care Barrel Handler Name Role Phone Thang Diana [place] [facility] Unavailable [phone] Rain Galaviz PA-C Unavailable Tavia Wyatt MD Unavailable Unavailable Erica Farrell APRN FEED MILL OPERATOR Unavailable Rich Barrett MD Unavailable Neil Kent MD Unavailable Diana Desir Stanislav [facility] Unavailable [phone] Livan Sharif MD Unavailable Catherine Cm MD Unavailable + Valery Veronica PA-C Unavailable [phone] Brea Quinn FRUIT AND VEGETABLE CLASSER FEED MILL OPERATOR Unavailable Brea Quinn FRUIT AND VEGETABLE CLASSER FEED MILL OPERATOR Unavailable Jose Francisco Johnson MD Unavailable Alfonso Renteria MD Unavailable + [phone] Esha Grimm PA-C Primary Care Provider Radha Lomeli FRUIT AND VEGETABLE CLASSER FEED MILL OPERATOR Unavailable [phone] Tommy Davidistine Radha OD Unavailable Pao Joseph RN Unavailable Unavailable Esha Grimm PA-C Unavailable [phone] Valery Veronica PA-C Unavailable [phone] Rey Tay MD Unavailable Duane Rocky DO Unavailable Philip Dumont MD Unavailable [phone] Encounter Details Date Type Department Care [...] you attend [facility] or alevism services? 1 to 4 times [...] Date Recorded PHQ-2 Score 0 06/20/2023 [facility] of Occupat ional Health - Occupational Stress [...] exercise at this level? 30 min 03/10/2023 [place] Depression Scale Answer Date Recorded [place] Depression Score 5 01/14/2021 Last EPDS Self [...] an abandoned building, in an overnight senior care, or couch-surfing.) Yes 07/14/2023 Are you worried [...] [facility] Neurology [facility] [address] [facility], [address] [place] [phone] Genny Hyman PA-C [facility] Epilepsy [facility] [address] [facility] 255 [place], [place] 24[address] [place] [address] [facility] 300 [place], [place] [address] 02/06/2024 10:00 AM CDT Office Visit [facility] [address] [phone] Neil Kent MD 500 [place], [place] [phone] 03/06/2024 3:00 PM CDT Office Visit [facility] Heart [facility] [address] [facility] [address] [place] [phone] Radha Lomeli, ARLENE FEED MILL OPERATOR [address] [facility] [address] [place], [place] [address] 03/07/2024 9:00 AM CDT Hospital Encounter [facility] [address] [facility] [address] 5th [place] [phone] Rocky Zepeda DO 500 [place], [place] [phone] 03/07/2024 9:00 AM CDT - 03/07/2024 9:30 AM CDT Surgery [facility] 909 [facility] 5th [place] [phone] Zepeda Rocky, DO 500 [place] [address] Esophagoscopy, gastroscopy, duodenoscopy (EGD), combined Scheduled Procedures Name Priority Associated Diagnoses Date/Ti or ESOPHAGOGASTRODUODENOSCOPY Eosinophilic esophagitis Esophageal dysphagia 03/07/2024 9:00 AM CDT documented as of this encounter Visit Diagnoses Not on filedocumented in this encounter Additional Health Concerns Assessment Noted Time PHQ-9 Depression Total Score: 4 06/20/20 23 8:40 AM QUALITY ASSURANCE 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 documented as of this encounter Care Teams Barrel Handler Relationship Specialty Start Date End Date Esha Grimm PA-C [address] [place] [address] PCP - General Family Medicine 05/04/23 Diana Desir, [facility] 3033 [place] [address] Pharmacist Pharmacist 04/17/21 Rain Galaviz PA-C [address] [place] [address] ENMA KNUTSON [address] Physician Frame Nailer Dermatology 04/28/21 Tavia Wyatt MD [address] [place] [address] EN[place] KNUTSON [address] Dermatology 07/14/21 Erica Farrell APRN FEED MILL OPERATOR 6405 [facility] [address] [place] [address] Nurse Practitioner Cardiovascular Disease 09/09/21 Rich Barrett MD 516 [facility] 9A [place], [place] 89[address] Physician Ophthalmology 01/21/22 Neil Kent MD 500 [place], [place] 252055 Dermatology 02/24/22 Diana Desir, [facility] 3033 [place], [place] 244366 Assigned [place] Pharmacist 04/07/22 Livan Sharif MD [address] [facility]00 [place], [place] [address] Cardiovascular Disease 05/14/22 Catherine Cm MD [address] 716505 Cardiovascular Disease 07/21/22 Valery Veronica, PA-C 909 [place], [place] 796435 Physician Frame Nailer Dermatology 07/21/22 Brea Quinn APRN FEED MILL OPERATOR 500 [place], [place] 151775 Nurse Practitioner Dermatology 09/21/22 Brea Quinn APRN FEED MILL OPERATOR 6401 [facility] [place] [address] Assigned Surgical Provider 10/09/22 [place] [address] [facility] 300 [place] [address] Assigned Musculoskeletal Provider 10/09/22 Alfonso Renteria MD [address] [facility] 200 [place], [place] [address]36 Assigned Neuroscience Provider 04/02/23 Radha Lomeli APRN FEED MILL OPERATOR 6405 [facility] [address] [place] [address]605 Assigned Heart and Vascular Provider 05/28/23 Jelena David OD [address] [facility] [address] [address] [place] [id number] Ophthalmology 06/15/23 Pao Joseph, VJ Personal Advocate & Liaison (PAL) Nurse 08/01/23 11/07/23 Esha Grimm PA-C [address] [place] [phone] Assigned PCP 07/16/23 Valery Veronica PA-C [address] [place] [address] 603185 Physician Frame Nailer Dermatology 09/19/23 Rey Tay MD [address] [place] [address] [id number] Gastroenterology 09/20/23 Rocky Zepeda DO [address] [place] [address] [phone] Physician Gastroenterology 09/20/23 Philip Dumont MD [address] [place] [address] Physician Ophthalmology 09/22/23 documented as of this encounter
--- OUTSIDE RECORDS SUMMARY | 2024-01-07 18:10 | XMS_ITS | Encounter Summary ---
Author Organization [facility] Address [address] [place] [address] Care Team Providers Care Shoe Sticks Repairer Name Role Phone Thang Diana [place] [facility] Unavailable [phone] Rain Galaviz PA-C Unavailable Tavia Wyatt MD Unavailable Unavailable Erica Farrell APRN SUPERINTENDENT TRACK Unavailable Rich Barrett MD Unavailable Neil Kent MD Unavailable Diana Desir Stanislav [facility] Unavailable [phone] Livan Sharif MD Unavailable Catherine Cm MD Unavailable + Valery Veronica PA-C Unavailable [phone] Brea Quinn PROFILE GRINDER SUPERINTENDENT TRACK Unavailable [phone] Brea Quinn PROFILE GRINDER SUPERINTENDENT TRACK Unavailable Jose Francisco Johnson MD Unavailable Alfonso Renteria MD Unavailable + [phone] Esha Grimm PA-C Primary Care Provider [phone] Radha Lomeli PROFILE GRINDER SUPERINTENDENT TRACK Unavailable [phone] Jelena David OD Unavailable Pao Joseph RN Unavailable Unavailable Esha Grimm PA-C Unavailable [phone] Valery Veronica PA-C Unavailable [phone] Rey Tay MD Unavailable Duane Rocky DO Unavailable Philip Dumont MD Unavailable [phone] Encounter Details Date Type Department Care [...] week 03/10/2023 How often do you attend [facility] or rastafari services? 1 to 4 times [...] Date Recorded PHQ-2 Score 0 06/20/2023 [facility] of Occupat ional Health - Occupational Stress [...] exercise at this level? 30 min 03/10/2023 [place] Depression Scale Answer Date Recorded Home Depression Score 5 01/14/2021 Last EPDS Self [...] Description 01/09/2024 10:15 AM CDT Office Visit [facility] Neurology [facility] [address] [facility], [address] [place] [phone] [address]enny Hyman PA-C [facility] Epilepsy [facility] 5775 [facility] 255 [place], [place] 4724[address] [place] [address] [facility] 300 [place], [place] [address] 02/06/2024 10:00 AM CDT Office Visit [facility] [address] [phone] Neil Kent MD 500 [place], [place] [phone] 03/06/2024 3:00 PM CDT Office Visit [facility] Heart [facility] [address] [facility] [address] [place] [phone] Radha Lomeli, ARLENE SUPERINTENDENT TRACK [address] [facility] [address] [place], [place] [address] 03/07/2024 9:00 AM CDT Hospital Encounter [facility] [address] [facility] [address] 5th [place] [phone] Rocky Zepeda DO 500 [place], [place] [phone] 03/07/2024 9:00 AM CDT - 03/07/2024 9:[address] [facility] 909 [facility] 5th [place] [phone] Zepeda Rocky, DO 500 [place] [address] Esophagoscopy, gastroscopy, duodenoscopy (EGD), combined Scheduled Procedures Name Priority Associated Diagnoses Date/Ti pr ESOPHAGOGASTRODUODENOSCOPY Eosinophilic esophagitis Esophageal dysphagia 03/07/2024 9:00 AM CDT documented as of this encounter Visit Diagnoses Not on filedocumented in this encounter Additional Health Concerns Assessment Noted Time PHQ-9 Depression Total Score: 4 06/20/20 23 8:40 AM SEAM SEWER documented as of this encounter Care Teams Shoe Sticks Repairer Relationship Specialty Start Date End Date Esha Grimm PA-C [address] [place] [address] PCP - General Family Medicine 05/04/23 Diana Desir, [facility] 3033 [place] [address] Pharmacist Pharmacist 04/17/21 Rain Galaviz PA-C [address] [place] [address] ENMA KNUTSON [address] Physician Motion Graphics Designer Dermatology 04/28/21 Tavia Wyatt MD [address] [place] [address] EN[place] KNUTSON [address] Dermatology 07/14/21 Erica Farrell APRN SUPERINTENDENT TRACK 6405 [facility] [address] [place] [address] Nurse Practitioner Cardiovascular Disease 09/09/21 Rich Barrett MD 516 [facility] 9A [place], [place] [address] Physician Ophthalmology 01/21/22 Neil Kent MD 500 [place], [place] [address]235 Dermatology 02/24/22 Diana Desir, [facility] 3033 [place], [place] 132806 Assigned [place] Pharmacist 04/07/22 Livan Sharif MD [address] [facility]00 [place], [place] [address] Cardiovascular Disease 05/14/22 Catherine Cm MD [address] 574875 Cardiovascular Disease 07/21/22 Valery Veronica, PA-C 909 [place], [place] 025415 Physician Motion Graphics Designer Dermatology 07/21/22 Brea Quinn APRN SUPERINTENDENT TRACK 500 [place], [place] 658785 Nurse Practitioner Dermatology 09/21/22 Brea Quinn APRN SUPERINTENDENT TRACK 6401 [facility] [address] Assigned Surgical Provider 10/09/22 [place] [address] [facility] 300 [place] [address] Assigned Musculoskeletal Provider 10/09/22 Alfonso Renteria MD [address] [facility] 200 [place], [place] 5632[address] Assigned Neuroscience Provider 04/02/23 Radha Lomeli APRN SUPERINTENDENT TRACK 6405 [facility] [address] [place] [address]25 Assigned Heart and Vascular Provider 05/28/23 Jelena David OD [address] [facility] [address] [place] [id number] Ophthalmology 06/15/23 Pao Joseph, VJ Personal Advocate & Liaison (PAL) Nurse 08/01/23 11/07/23 Esha Grimm PA-C [address] [place] [phone] Assigned PCP 07/16/23 Valery Veronica PA-C [address] [place] [address]255 Physician Motion Graphics Designer Dermatology 09/19/23 Rey Tay MD [address] [place] [address] [phone] Gastroenterology 09/20/23 Rocky Zepeda DO [address] [place] [address] [phone] Physician Gastroenterology 09/20/23 Philip Dumont MD [address] [place] [address] Physician Ophthalmology 09/22/23 documented as of this encounter
--- OUTSIDE RECORDS SUMMARY | 2024-01-07 18:10 | XMS_ITS | Encounter Summary ---
Author Organization [facility] Address [address] [place] [address] Care Team Providers Care Coding Consultant Name Role Phone Thang Diana [place] [facility] Unavailable Rain Galaviz PA-C Unavailable Tavia Wyatt MD Unavailable Unavailable Erica Farrell APRN REPORTING COORDINATOR Unavailable Rich Barrett MD Unavailable Neil Kent MD Unavailable Diana Desir Stanislav [facility] Unavailable [phone] Livan Sharif MD Unavailable Catherine Cm MD Unavailable + Valery Veronica PA-C Unavailable [phone] Brea Quinn CRAP GAME BOX PERSON REPORTING COORDINATOR Unavailable Brea Quinn CRAP GAME BOX PERSON REPORTING COORDINATOR Unavailable Jose Francisco Johnson MD Unavailable Alfonso Renteria MD Unavailable + [phone] Esha Grimm PA-C Primary Care Provider Radha Lomeli CRAP GAME BOX PERSON REPORTING COORDINATOR Unavailable [phone] Jelena David OD Unavailable Pao Joseph RN Unavailable Unavailable Esha Grimm PA-C Unavailable [phone] Valery Veronica PA-C Unavailable [phone] Rey Tay MD Unavailable Duane Rocky DO Unavailable Philip Dumont MD Unavailable [phone] Reason for Visit * Reason Comments Pharyngitis Encounter Details Date Type Department Care Team (Late st Contact Info) Description 09/29/2023 12:13 AM CDT - 09/29/2023 12:14 AM CDT Emergency [facility] Emergency Dept [address] [place] [address] Discharge Disposition: Left Without Being Seen Social [...] week 03/10/2023 How often do you attend [facility] or pentecostalism services? 1 to 4 [...] Answer Date Recorded PHQ-2 Score 0 06/20/2023 [facility] of Occupat ional Health - Occupational Stress [...] at this level? 30 min 03/10/2023 [place] Depression Scale Answer Date Recorded [place] Depression Score 5 01/14/2021 Last EPDS Self [...] 2 times daily 60 mL 1 09/01/2023 levonorgestrel (MIRENA) 52 MG (20 mcg/day) IUD by Intrauterine route once Lidocaine (LIDOCARE) 4 % PatchIndications:Acut e left-sided low back pain with left-sided sciatica,Sacroiliac joint pain,Neck pain Place 1 patch onto the skin every 24 hours To prevent lidocaine toxicity, patient should be patch free for 12 hrs daily. 30 patch 1 10/11/2022 omeprazole (PRILOSEC) [address] capsuleIndications:Ep igastric [...] healed then stop 80 g 2 10/01/2022 ketoconazole (NIZORAL) 2 % external shampooIndications:Ps oriasis Use every 1-2 days when flared. Leave in few minutes before rinsing. Use twice weekly to prevent flares. 120 mL 11 10/01/2022 11/17/2023 LORazepam (ATIVAN) 0.5 MG tabletIndications:Anx iety Take 1 tablet (0.5 mg) by mouth daily as needed for anxiety 30 tablet 07/28/2023 10/27/2023 metoprolol succinate ER (TOPROL XL) 25 MG 24 hr tabletIndications:Pal pitations Take 0.5 tablets (12.5 mg) by mouth daily 45 tablet 1 05/25/2023 11/22/2023 documented as of this encounter ED Notes [...] breathing. Triage Assessment (Adult) Row Name 09/28/23 1724 Triage Assessment Airway WDL WDL Respiratory WDL Respiratory WDL WDL Skin Circulation/Temperature WDL Skin Circulation/Temperature WDL WDL Cardiac WDL Cardiac WDL WDL documented in this encounter Plan of Treatment Upcoming Encounters Date Type Department Care Team (Late st Contact Info) Description 01/09/2024 10:15 AM CDT Office Visit [facility] [address] [facility], [address] [place] [phone] Genny Hyman PA-C [facility] Epilepsy [facility] 5775 [facility] 255 [place] [address] [place] [address] [facility] 300 [place] [address] 02/06/2024 10:00 AM CDT Office Visit [facility] [address] [phone] Neil Kent MD 500 [place], [place] [address] 03/06/2024 3:00 PM CDT Office Visit [facility] Heart [facility] [address] [facility] [address] [place] [phone] Radha Lomeli, CRAP GAME BOX PERSON REPORTING COORDINATOR [address] [place] [address] 03/07/2024 9:00 AM CDT Hospital Encounter [facility] [address] [facility] 5th [place] [phone] Rocky Zepeda DO 500 [place] [address] 03/07/2024 9:00 AM CDT - 03/07/2024 9:30 AM CDT Surgery [facility] [address] [place] [address] 5th [place] [phone] Rocky Zepeda DO 500 [place], [place] 4[address] Esophagoscopy, gastroscopy, duodenoscopy (EGD), combined Scheduled Procedures Name Priority Associated Diagnoses Date/Ti pa ESOPHAGOGASTRODUODENOSCOPY Eosinophilic esophagitis Esophageal dysphagia 03/07/2024 9:00 AM CDT documented as of this encounter Visit Diagnoses Not on filedocumented in this encounter Additional Health Concerns Assessment Noted Time PHQ-9 Depression Total Score: 4 06/20/20 8:40 AM CIRCUIT MANAGER documented as of this encounter Care Teams Coding Consultant Relationship Specialty Start Date End Date Esha Grimm PA-C [address] [place] [address] PCP - General Family Medicine 05/04/23 Diana Desir, [facility] [address] [place], [place] [address] Pharmacist Pharmacist 04/17/21 Rain Galaviz PA-C [address] [place] [address] [address] [place] [address] Physician Patient Financial Specialist Dermatology 04/28/21 Tavia Wyatt MD [address] [place] [address] [address] [place] [address] Dermatology 07/14/21 Erica Farrell APRN REPORTING COORDINATOR 6405 [facility] [address] [place], [place] 204[address] Nurse Practitioner Cardiovascular Disease 09/09/21 Rich Barrett MD 516 [facility] 9A [place], [place] 6[address] Physician Ophthalmology 01/21/22 Neil Kent MD 500 [place] [address] Dermatology 02/24/22 Diana Desir, [facility] 3033 [employer], [place] 376[address] Assigned [place] Pharmacist 04/07/22 Livan Sharif MD 6[address] [facility] [address] [place], [place] [address] Cardiovascular Disease 05/14/22 Catherine Cm MD [address] 833435 Cardiovascular Disease 07/21/22 Valery Veronica, PA-C [address] [place] [address] Physician Patient Financial Specialist Dermatology 07/21/22 Brea Quinn APRN REPORTING COORDINATOR 500 [place], [place] 7866[address] Nurse Practitioner Dermatology 09/21/22 Brea Quinn APRN REPORTING COORDINATOR [address] [place] [address] 286322 Assigned Surgical Provider 10/09/22 [place] [address] [facility] [address] 0[address] Assigned Musculoskeletal Provider 10/09/22 Alfonso Renteria MD 5775 [facility] 200 [place], [place] 707516 Assigned Neuroscience Provider 04/02/23 Radha Lomeli APRN REPORTING COORDINATOR [address] [place] [address] Assigned Heart and Vascular Provider 05/28/23 Jelena David OD [address] [place] [address] Ophthalmology 06/15/23 Pao Joseph, VJ Personal Advocate & Liaison (PAL) Nurse 08/01/23 11/07/23 Esha Grimm PA-C [address] [place] [address]919083 Assigned PCP 07/16/23 Valery Veronica PA-C [address] [place] [address] Physician Patient Financial Specialist Dermatology 09/19/23 Rey Tay MD [address] [place] [address] Gastroenterology 09/20/23 Rocky Zepeda DO [address] [place] [address] 518135 Physician Gastroenterology 09/20/23 Philip Dumont MD [address] [place] [address] 823805 Physician Ophthalmology 09/22/23 documented as of this encounter
--- OUTSIDE RECORDS SUMMARY | 2024-01-07 18:10 | XMS_ITS | Encounter Summary ---
Author Organization [place] Address [address] [place] [address] Care Team Providers Care Databases Computer Consultant Name Role Phone Thang Diana [place] [facility] Unavailable Rain Galaviz PA-C Unavailable Tavia Wyatt MD Unavailable Unavailable Erica Farrell APRN ROBOTYPE OPERATOR Unavailable Rich Barrett MD Unavailable Neil Kent MD Unavailable Diana Desir Stanislav [facility] Unavailable [phone] Livan Sharif MD Unavailable Catherine Cm MD Unavailable + Valery Veronica PA-C Unavailable [phone] Brea Quinn LEGAL TRANSCRIBER ROBOTYPE OPERATOR Unavailable Brea Quinn LEGAL TRANSCRIBER ROBOTYPE OPERATOR Unavailable Jose Francisco Johnson MD Unavailable Alfonso Renteria MD Unavailable + [phone] Esha Grimm PA-C Primary Care Provider [phone] Radha Lomeli LEGAL TRANSCRIBER ROBOTYPE OPERATOR Unavailable [phone] Jelena David OD Unavailable [phone] Pao Joseph RN Unavailable Unavailable [facility] PA-C Unavailable [phone] Valery Veronica PA-C Unavailable [phone] Rey Tay MD Unavailable Rocky Zepeda DO Unavailable Philip Dumont MD Unavailable [phone] Meredith Carrera-C Unavailable [phone] Neil Kent MD Unavailable Juan Pablo Emmanuel MD Unavailable [phone] Encounter Details Date Type Department Care Team (Late st Contact Info) Description 09/01/2023 MyC Medical Advice [address] [address] [facility] 3033 [place] [address] Social History Tobacco Use Types [...] Answer Date Recorded PHQ-2 Score 0 06/20/2023 [facility] [...] exercise at this level? 30 min 03/10/2023 Norton Depression Scale Answer Date Recorded Norton Depression Score 5 01/14/2021 Last EPDS Self [...] Description 01/09/2024 10:15 AM CDT Office Visit [facility] Neurology [address], [address] [place] [address] Genny Hyman PA-C [facility] Epilepsy Care 5775 [facility] 255 [place], [place] [address] [place] [address] [facility] 300 [place], [place] [address] 02/06/2024 10:00 AM CDT Office Visit [facility] [address] [address] Neil Kent MD 500 [place], [place] 6[address]25 03/06/2024 3:00 PM CDT Office Visit [facility] [address] [facility] [address] [place] [phone] Armani Radha E, LEGAL TRANSCRIBER ROBOTYPE OPERATOR [address] [place] [address] 03/07/2024 9:00 AM CDT Hospital Encounter [address] 5th [place] [phone] Rocky Zepeda DO 500 [place], [place] [address]995 03/07/2024 9:00 AM CDT - 03/07/2024 9:30 AM CDT Surgery [address] [phone] Rocky Zepeda DO 500 [place], [place] 943885 Esophagoscopy, gastroscopy, duodenoscopy (EGD), combined Scheduled Procedures [...] Score: 4 06/20/20 23 8:40 AM MACHINE ADJUSTER LEADER documented as of this encounter Care Teams Databases Computer Consultant Relationship Specialty Start Date End Date Esha Grimm PA-C [address] [place] [phone] PCP - General Family Medicine 05/04/23 Diana Desir, [facility] 3033 [place] [address] Pharmacist Pharmacist 04/17/21 Rain Galaviz PA-C [address] [place] [address] [address] [place] [address] Physician Drapery Sewer Hand Dermatology 04/28/21 Tavia Wyatt MD [address] [place] [address] [place] [address] Dermatology 07/14/21 Erica Farrell APRN ROBOTYPE OPERATOR [address] [place] [address]68[address] Nurse Practitioner Cardiovascular Disease 09/09/21 Rich Barrett MD 516 [facility] [address] [place], [place] [address] Physician Ophthalmology 01/21/22 Neil Kent MD 500 [place], [place] 0[address]65 Dermatology 02/24/22 Diana Desir, [facility] 30[address] [place] [address] Assigned MTM Pharmacist 04/07/22 Livan Sharif MD [address] [place] [place] [address]38[address] Cardiovascular Disease 05/14/22 Catherine Cm MD [address] [address] [place] [address] Cardiovascular Disease 07/21/22 Valery Veronica PA-C 909 [place], [place] 8[address] Physician Drapery Sewer Hand Dermatology 07/21/22 Brea Quinn APRN ROBOTYPE OPERATOR 500 [place] [address] Nurse Practitioner Dermatology 09/21/22 Brea Quinn APRN ROBOTYPE OPERATOR 6401 [place], [place] 386192 Assigned Surgical Provider 10/09/22 [place] [address] [facility] 300 [place], [place] [address] Assigned Musculoskeletal Provider 10/09/22 Alfonso Renteria MD 5775 [facility] 200 [place], [place] [address] Assigned Neuroscience Provider 04/02/23 Radha Lomeli APRN ROBOTYPE OPERATOR 6405 [facility] [address] [place] [address] Assigned Heart and Vascular Provider 05/28/23 Jelena David OD [address] [place] [address] Ophthalmology 06/15/23 Pao Joseph, VJ Personal Advocate & Liaison (PAL) Nurse 08/01/23 11/07/23 Esha Grimm PA-C [address] [place] [phone] Assigned PCP 07/16/23 Valery Veronica PA-C [address] [place] [address]285 Physician Drapery Sewer Hand Dermatology 09/19/23 Rey Tay MD [address] [place] [address] MD Gastroenterology 09/20/23 Rocky Zepeda DO [address] [place] [address] Physician Gastroenterology 09/20/23 Philip Dumont MD [address] [place] [address] Physician Ophthalmology 09/22/23 Meredith Carrera PA-C [address] [place] [address] Assigned Gastroenterology Provider 11/01/23 Neil Kent MD [address] [address] Dermatology 11/02/23 [place] [address] [place] [address] Neurological Surgery 12/26/23 documented as of this encounter
--- OUTSIDE RECORDS SUMMARY | 2024-01-07 18:10 | XMS_ITS | Encounter Summary ---
Author Organization [place] Address [address] [place] [address] Care Team Providers Care [place] Construction Supervisor Name Role Phone Thang Diana [place] [facility] Unavailable Rain Galaviz PA-C Unavailable Tavia Wyatt MD Unavailable Unavailable Erica Farrell APRN WAIST FITTER Unavailable Rich Barrett MD Unavailable Neil Kent MD Unavailable Diana Desir Stanislav [facility] Unavailable [phone] Livan Sharif MD Unavailable Catherine Cm MD Unavailable + Valery Veronica PA-C Unavailable [phone] Brea Quinn MECHANICAL ENGINEERING LECTURER WAIST FITTER Unavailable Brea Quinn MECHANICAL ENGINEERING LECTURER WAIST FITTER Unavailable Jose Francisco Johnson MD Unavailable Alfonso Renteria MD Unavailable + [phone] Esha Grimm PA-C Primary Care Provider Radha Lomeli MECHANICAL ENGINEERING LECTURER WAIST FITTER Unavailable [phone] Frankie Jelena Templetone OD Unavailable Pao Joseph RN Unavailable Unavailable Esha Grimm PA-C Unavailable [phone] Valery Veronica PA-C Unavailable [phone] Rey Tay MD Unavailable Duane Rockyanne STEVENS Unavailable Philip Dumont MD Unavailable [phone] Encounter Details Date Type Department Care Team (Late st Contact Info) Description 09/20/2023 Telephone [facility] [address] 4th [place] [address] Jeffery Vieira, RN Social History [...] Answer Date Recorded PHQ-2 Score 0 06/20/2023 [facility] - Occupational Stress Questionnaire Answer [...] exercise at this level? 30 min 03/10/2023 [place] Depression Scale Answer Date Recorded [place] Depression Score 5 01/14/2021 Last EPDS Self [...] Description 01/09/2024 10:15 AM CDT Office Visit [address] [place] [phone] Genny Hyman PA-C [facility] 5775 [facility] 255 [place], [place] 88[address] [place] [address] [facility] [address] 300 [place], [place] [address] 02/06/2024 10:00 AM CDT Office Visit [facility] [address] [phone] Neil Kent MD 500 [place], [place] [address]095 03/06/2024 3:00 PM CDT Office Visit [facility] [address] [facility] [address] [place] [phone] Radha Lomeli, MECHANICAL ENGINEERING LECTURER WAIST FITTER 6405 [facility] [address] [place], [place] [address] 03/07/2024 9:00 AM CDT Hospital Encounter [facility] [address] [place] [address] 5th [place] [phone] Rocky Zepeda DO 500 [place], [place] [address] 03/07/2024 9:00 AM CDT - 03/07/2024 9:[address] [facility] [address] [place] [phone] Rocky Zepeda DO 500 [place], [place] 3[address] Esophagoscopy, gastroscopy, duodenoscopy (EGD), combined Scheduled Procedures Name Priority Associated Diagnoses Date/Ti la ESOPHAGOGASTRODUODENOSCOPY Eosinophilic esophagitis Esophageal dysphagia 03/07/2024 9:00 AM CDT documented as of this encounter Visit Diagnoses Not on filedocumented in this encounter Additional Health Concerns Assessment Noted Time PHQ-9 Depression Total Score: 4 06/20/20 23 8:40 AM MEAT TEAM LEAD documented as of this encounter Care Teams [employer] Construction Supervisor Relationship Specialty Start Date End Date Esha Grimm PA-C [address] [place] [address] PCP - General Family Medicine 05/04/23 Diana Desir, [facility] [address] [place] [address] Pharmacist Pharmacist 04/17/21 Rain Galaviz PA-C [address] [place] [address] [address] [place] [address] Physician Chief Environmental Commitment Officer Dermatology 04/28/21 Tavia Wyatt MD [address] [place] [address] [address] [place] [address] Dermatology 07/14/21 Erica Farrell APRN WAIST FITTER 6405 [facility] [address] [place], [place] [address] Nurse Practitioner Cardiovascular Disease 09/09/21 Rich Barrett MD [address] [address] Physician Ophthalmology 01/21/22 Neil Kent MD 500 [place], [place] [phone] Dermatology 02/24/22 Diana Desir, [facility] 3033 [place], [place] 938536 Assigned MTM Pharmacist 04/07/22 Lvian Sharif MD [address] [facility] [address] [place], [place] [address] Cardiovascular Disease 05/14/22 Catherine Cm MD [address] [facility] [address] [place], [place] [address] Cardiovascular Disease 07/21/22 Valery Veronica, PA-C [address] [place] [address] 452785 Physician Chief Environmental Commitment Officer Dermatology 07/21/22 Brea Quinn APRN WAIST FITTER [address] [place] [address] 315455 Nurse Practitioner Dermatology 09/21/22 Brea Quinn APRN WAIST FITTER [address] [place] [address] 021032 Assigned Surgical Provider 10/09/22 [place] [address] [facility] 300 [place], [place] 773267 Assigned Musculoskeletal Provider 10/09/22 Alfonso Renteria MD 5775 [facility] 200 [place], [place] [address]216 Assigned Neuroscience Provider 04/02/23 Radha Lomeli APRN WAIST FITTER 6405 [facility] [address] [place] [address] Assigned Heart and Vascular Provider 05/28/23 Jelena David OD 3305 [facility] [place] [address] MD Ophthalmology 06/15/23 Pao Joseph, VJ Personal Advocate & Liaison (PAL) Nurse 08/01/23 11/07/23 sEha Grimm PA-C [address] [place] [phone] Assigned PCP 07/16/23 Valery Veronica PA-C [address] [place] [address] Physician Chief Environmental Commitment Officer Dermatology 09/19/23 Rey Tay MD [address] [place] [address] 375765 Gastroenterology 09/20/23 Rocky Zepeda DO [address] [place] [address] 580355 Physician Gastroenterology 09/20/23 Philip Dumont MD [address] [place] [address] 401335 Physician Ophthalmology 09/22/23 documented as of this encounter
--- OUTSIDE RECORDS SUMMARY | 2024-01-07 18:10 | XMS_ITS | Encounter Summary ---
Author Organization [place] Address [address] [place] [address] Care Team Providers Care Construction Code Administrator Name Role Phone Thang Diana [place] [facility] Unavailable Rain Galaviz PA-C Unavailable Tavia Wyatt MD Unavailable Unavailable Erica Farrell APRN LABORATORY MECHANICAL TECHNICIAN Unavailable Rich Barrett MD Unavailable Neil Kent MD Unavailable Diana Desir Stanislav [facility] Unavailable [phone] Livan Sharif MD Unavailable Catherine Cm MD Unavailable + Valery Veronica PA-C Unavailable [phone] Brea Quinn STONE SANDBLASTER LABORATORY MECHANICAL TECHNICIAN Unavailable Brea Quinn STONE SANDBLASTER LABORATORY MECHANICAL TECHNICIAN Unavailable Jose Francisco Johnson MD Unavailable Alfonso Renteria MD Unavailable + [phone] Esha Grimm PA-C Primary Care Provider [phone] Radha Lomeli STONE SANDBLASTER LABORATORY MECHANICAL TECHNICIAN Unavailable [phone] Jelena David OD Unavailable Pao Joseph RN Unavailable Unavailable AlfaEsha Adam PA-C Unavailable [phone] Valery Veronica PA-C Unavailable [phone] Rey Tay MD Unavailable Rocky Zepeda DO Unavailable Philip Dumont MD Unavailable [phone] Meredith Carrera PA-C Unavailable [phone] Neil Kent MD Unavailable Juan Pablo Emmanuel MD Unavailable [phone] Encounter Details Date Type Department Care Team (Late st Contact Info) Description 09/20/2023 MyC Medical Advice [facility] [address]th [place] [address] Jeffery Vieira, RN Social History [...] How often do you attend chur or rastafari services? 1 to 4 times [...] Date Recorded PHQ-2 Score 0 06/20/[address] [facility] - Occupational Stress Questionnaire Answer Date [...] exercise at this level? 30 min 03/10/2023 [place] Depression Scale Answer Date Recorded Butler Depression Score 5 01/14/2021 Last EPDS Self [...] Description 01/09/2024 10:15 AM CDT Office Visit [facility] Neurology [address], [address] [place] [phone]enny Hyman PA-C [facility] Epilepsy [facility] 5775 [facility] 255 [place], [place] 16[address] [place] [address] [facility] 300 [place], [place] 85[address] 02/06/2024 10:00 AM CDT Office Visit [facility] [address] [phone] Neil Kent MD 500 [place], [place] [phone] 03/06/2024 3:00 PM CDT Office Visit [facility] Heart [facility] [address] [facility] [address] [place] [phone] Radha Lomeli, [facility] [address] [place] [address] [address] [place] [address] 03/07/2024 9:00 AM CDT Hospital Encounter [facility] [place] [address] 5th [place] [phone] Rocky Zepeda, DO 500 [place], [place] [address] 03/07/2024 9:00 AM CDT - 03/07/2024 9:30 AM CDT Surgery [facility] OR [address] [phone] Rocky Zepeda, DO 500 [place], [place] [address] Esophagoscopy, gastroscopy, duodenoscopy (EGD), combined Scheduled Procedures [...] Total Score: 4 06/20/20 23 8:40 AM ART GLASS DESIGNER documented as of this encounter Care Teams Construction Code Administrator Relationship Specialty Start Date End Date Esha Grimm PA-C [address] [place] [address] PCP - General Family Medicine 05/04/23 Diana Desir, [facility] [address] [place] [address] Pharmacist Pharmacist 04/17/21 Rain Galaviz PA-C [address] [place] [address] [address] [place] [address] Physician Logging Specialist Dermatology 04/28/21 Tavia Wyatt MD [address] [place] [address] [address] [place], [place] [address] Dermatology 07/14/21 Erica Farrell APRN LABORATORY MECHANICAL TECHNICIAN [address] [place] 4[address] Nurse Practitioner Cardiovascular Disease 09/09/21 Rich Barrett MD [address] [place] [address] 256635 Physician Ophthalmology 01/21/22 Neil Kent MD [address] [place] [address] 720335 Dermatology 02/24/22 [facility] [address] [place] [address] 344596 Assigned [facility] Pharmacist 04/07/22 Livan Sharif MD [address], [facility]00 [place] 34[address] Cardiovascular Disease 05/14/22 Catherine Cm MD [address] [facility]00 [place] 8[address]05 Cardiovascular Disease 07/21/22 Valery Veronica PA-C [address] [place] [address] Physician Logging Specialist Dermatology 07/21/22 Brea Quinn APRN LABORATORY MECHANICAL TECHNICIAN 500 [place] [address] Nurse Practitioner Dermatology 09/21/22 Brea Quinn APRN LABORATORY MECHANICAL TECHNICIAN 6401 [place] [address] Assigned Surgical Provider 10/09/22 [place] [address] [place] [address] [address] Assigned Musculoskeletal Provider 10/09/22 Alfonso Renteria MD 5775 [facility] 200 [place] [address] Assigned Neuroscience Provider 04/02/23 Radha Lomeli APRN LABORATORY MECHANICAL TECHNICIAN [address] [place] [phone] [place] [address] Assigned Heart and Vascular Provider 05/28/23 Jelena David OD [address] [place] [address] Ophthalmology 06/15/23 Pao Joseph, VJ Personal Advocate & Liaison (PAL) Nurse 08/01/23 11/07/23 Esha Grimm PA-C [address] [place] [address] Assigned PCP 07/16/23 Valery Veronica PA-C [address] [place] [address] Physician Logging Specialist Dermatology 09/19/23 Rey Tay MD [address] [place] [address] MD Gastroenterology 09/20/23 Rocky Zepeda DO [address] [place] [address] Physician Gastroenterology 09/20/23 Philip Dumont MD [address] [place] [address] Physician Ophthalmology 09/22/23 Meredith Carrera PA-C [address] [place] [address] Assigned Gastroenterology Provider 11/01/23 Neil Kent MD [address] [place] [address] Dermatology 11/02/23 [place] [address] [place] 681467 Neurological Surgery 12/26/23 documented as of this encounter
--- OUTSIDE RECORDS SUMMARY | 2024-01-07 18:10 | XMS_ITS | Encounter Summary ---
Author Organization [place] Address [address] [place] [address] Care Team Providers Care Caponizer Name Role Phone Thang Diana [place] [facility] Unavailable [phone] Rain Galaviz PA-C Unavailable Tavia Wyatt MD Unavailable Unavailable Erica Farrell APRN ASSOCIATE PROPERTY MANAGER Unavailable Rich Barrett MD Unavailable Neil Kent MD Unavailable Diana Desir Stanislav [facility] Unavailable [phone] Livan Sharif MD Unavailable Catherine Cm MD Unavailable + Valery Veronica PA-C Unavailable [phone] Brea Quinn GRAPHIC ENGINEER ASSOCIATE PROPERTY MANAGER Unavailable Brea Quinn GRAPHIC ENGINEER ASSOCIATE PROPERTY MANAGER Unavailable Jose Francisco Johnson MD Unavailable Alfonso Renteria MD Unavailable + [phone] Esha Grimm PA-C Primary Care Provider [phone] Radha Lomeli GRAPHIC ENGINEER ASSOCIATE PROPERTY MANAGER Unavailable [phone] Tommy Davidmao Templetone OD Unavailable Pao Joseph RN Unavailable Unavailable Esha Grimm PA-C Unavailable [phone] Valery Veronica PA-C Unavailable Rey Tay MD Unavailable Rocky Zepeda DO Unavailable Philip Dumont MD Unavailable Reason for Visit * Reason Onset Date Comments Call Back 09/29/2023 Discuss being se en sooner (increased issues with swallowing) Encounter Details Date Type Department Care Team (Late st Contact Info) Description 09/29/2023 Telephone [facility] G[facility]ology Clinic [address] [place] [address] Rocky Zepeda DO [address] [place] [address] Call Back (Discuss being seen [...] Answer Date Recorded PHQ-2 Score 0 06/20/2023 [facility] - Occupational Stress Questionnaire Answer Date Recorded [...] exercise at this level? 30 min 03/10/2023 Brookesmith Depression Scale Answer Date Recorded Brookesmith Depression Score 5 01/14/2021 Last EPDS Self [...] Returned pt call and left detailed vm. Pe Electrical Engineer messaged regarding getting pt in sooner to esophageal clinic for confirmed EoE with symptoms. * Telephone Encounter - Barbara Ayers - 09/29/2023 1:25 PM CDT [facility] Call Center Phone Message May a detailed message be left on voicemail: yes Reason for Call: Other: Pt is requesting a call back please to discuss being seen sooner then the first available visit. Pt states she is having increased issues swallowing and would also like to discuss if she should be seen with an cruise staff member. Please reach out to discuss. Thank you! Action Taken: Message routed to: [facility] GI Travel Screening: Not Applicable documented in this encounter Plan of Treatment Upcoming Encounters Date Type Department Care Team (Late st Contact Info) Description 01/09/2024 10:15 AM CDT [facility] [place] [address] [facility], [address] [place] [phone] Genny Hyman PA-C [facility] Epilepsy [facility] [address] [facility] [address] [place] [address] [place] [address] [facility] [address] [place], [place] [address] 02/06/2024 10:00 AM CDT Office Visit [facility] [address] [phone] Neil Kent MD 500 [place], [place] 0[address]135 03/06/2024 3:00 PM CDT Office Visit [facility] Heart [facility] [address] [facility] [address] [place] [phone] Radha Lomeli, ARLENE ASSOCIATE PROPERTY MANAGER [address] [place], [place] [address] 03/07/2024 9:00 AM CDT Hospital Encounter [facility] [address] [place] [address] 5th [place] [phone] Rocky Zepeda DO 500 [place] [address] 03/07/2024 9:00 AM CDT - 03/07/2024 9:30 AM CDT Surgery [facility] [address] [place] [phone] Rocky Zepeda DO 500 [place], [place] 0[address] Esophagoscopy, gastroscopy, duodenoscopy (EGD), combined Scheduled Procedures Name Priority Associated Diagnoses Date/Ti pr ESOPHAGOGASTRODUODENOSCOPY Eosinophilic esophagitis Esophageal dysphagia 03/07/2024 9:00 AM CDT documented as of this encounter Visit Diagnoses Not on filedocumented in this encounter Additional Health Concerns Assessment Noted Time PHQ-9 Depression Total Score: 4 06/20/20 23 8:40 AM PROOF TECHNICIAN documented as of this encounter Care Teams Caponizer Relationship Specialty Start Date End Date Esha Grimm PA-C [address] [place] [address] PCP - General Family Medicine 05/04/23 Diana Desir, [facility] [address] [place] [address] Pharmacist Pharmacist 04/17/21 Rain Galaviz PA-C [address] [place] [address] [address] [place] [address] Physician Photogrammetry Airplane Pilot Dermatology 04/28/21 Tavia Wyatt MD [address] [place] [address] [address] [place] [address] Dermatology 07/14/21 Erica Farrell APRN ASSOCIATE PROPERTY MANAGER [address] [facility] [address] [place] [address] Nurse Practitioner Cardiovascular Disease 09/09/21 Rich Barrett MD [address] 510665 Physician Ophthalmology 01/21/22 Neil Kent MD 500 [place], [place] [phone] Dermatology 02/24/22 Diana Desir, [facility] [address] [place], [place] [phone] Assigned [place] Pharmacist 04/07/22 Livan Sharif MD 6405 [facility] [address] [place], [place] 6[address] Cardiovascular Disease 05/14/22 Catherine Cm MD [address] 9[address]400 [place], [place] 273975 Cardiovascular Disease 07/21/22 Valery Veronica, PA-C [address] [place] [address] 629395 Physician Photogrammetry Airplane Pilot Dermatology 07/21/22 Brea Quinn APRN ASSOCIATE PROPERTY MANAGER [address] [place] [address] 082105 Nurse Practitioner Dermatology 09/21/22 Brea Quinn APRN ASSOCIATE PROPERTY MANAGER [address] [place] [address] 274522 Assigned Surgical Provider 10/09/22 [place] [address] 596877 Assigned Musculoskeletal Provider 10/09/22 Alfonso Renteria MD 5775 [facility] 200 [place], [place] [id number] Assigned Neuroscience Provider 04/02/23 Radha Lomeli APRN ASSOCIATE PROPERTY MANAGER 6405 [facility] [address] [place], [place] [address] Assigned Heart and Vascular Provider 05/28/23 Jelena David OD [address] [place] [address] Ophthalmology 06/15/23 Pao Joseph, VJ Personal Advocate & Liaison (PAL) Nurse 08/01/23 11/07/23 Esha Grimm PA-C [address] [place] [phone] Assigned PCP 07/16/23 Valery Veronica PA-C 9 [place], [place] 258[address] Physician Photogrammetry Airplane Pilot Dermatology 09/19/23 Rey Tay MD [address] [place] [address] Gastroenterology 09/20/23 Rocky Zepeda DO [address] [place] [address] 216155 Physician Gastroenterology 09/20/23 Philip Dumont MD [address] [place] [address] 265125 Physician Ophthalmology 09/22/23 documented as of this encounter
--- OUTSIDE RECORDS SUMMARY | 2024-01-07 18:10 | XMS_ITS | Encounter Summary ---
Author Organization [place] Address [address] [place] [address] Care Team Providers Care Tours Captain Name Role Phone Thang Diana [place] [facility] Unavailable Rain Galaviz PA-C Unavailable Tavia Wyatt MD Unavailable Unavailable Erica Farrell APRN FIRE HOSE CURER Unavailable Rich Barrett MD Unavailable Neil Kent MD Unavailable Diana Desir Stanislav [facility] Unavailable [phone] Livan Sharif MD Unavailable Catherine Cm MD Unavailable + Valery Veronica PA-C Unavailable [phone] Brea Quinn SAFETY AND OCCUPATIONAL HEALTH MANAGER FIRE HOSE CURER Unavailable Brea Quinn SAFETY AND OCCUPATIONAL HEALTH MANAGER FIRE HOSE CURER Unavailable Jose Francisco Johnson MD Unavailable Alfonso Renteria MD Unavailable + [phone] Esha Grimm PA-C Primary Care Provider [phone] Radha Lomeli SAFETY AND OCCUPATIONAL HEALTH MANAGER FIRE HOSE CURER Unavailable [phone] FrankieJelenae OD Unavailable Pao Joseph RN Unavailable Unavailable Jesus Grimmyllincoln [place] PA-C Unavailable [phone] Valery Veronica PA-C Unavailable [phone] Rey Tay MD Unavailable Rocky Zepeda DO Unavailable Philip Dumont MD Unavailable [phone] Meredith Carrera PA-C Unavailable [phone] Neil Kent MD Unavailable Juan Pablo Emmanuel MD Unavailable [phone] Encounter Details Date Type Department Care Team (Late st Contact Info) Description 09/08/2023 MyC Medical Advice [facility] Gastroenterology Clinic [address] 4th [place] [address] Mary Kelsey Social History Tobacco [...] exercise at this level? 30 min 03/10/2023 Muse Depression Scale Answer Date Recorded Muse Depression Score 5 01/14/2021 Last EPDS Self [...] Description 01/09/2024 10:15 AM CDT Office Visit [facility] Neurology [address], [address] [place] [phone] Genny Hyman PAUcheC [facility] Epilepsy [facility] [address] [facility] 255 [place], [place] 6237[address] [place] [address] [facility] 300 [place], [place] 671417 02/06/2024 10:00 AM CDT Office Visit [facility] [address] [phone] Neil Kent MD 500 [place], [place] 577355 03/06/2024 3:00 PM CDT Office Visit [facility] Heart [facility] [address] [facility] [address] [place] [phone] Radha Lomeli APRN FIRE HOSE CURER [address] [place] [address] 03/07/2024 9:00 AM CDT Hospital Encounter [facility] [place] [address] [facility] 5th [place] [phone] Rocky Zepeda, DO 500 [place], [place] 56[address] 03/07/2024 9:00 AM CDT - 03/07/2024 9:[address] [facility] [address] [facility] 5th [place] [phone] Rocky Zepeda, DO 500 [place], [place] 936975 Esophagoscopy, gastroscopy, duodenoscopy (EGD), combined Scheduled Procedures Name Priority Associated Diagnoses Date/Ti ut ESOPHAGOGASTRODUODENOSCOPY Eosinophilic esophagitis Esophageal dysphagia 03/07/2024 9:00 AM CDT documented as of this encounter Visit Diagnoses Not on filedocumented in this encounter Additional Health Concerns Infection Onset Date Last Indicated Resolved Time Rule Out COVID-19 12/26/2023 12/26/2023 12/26/2023 9:50 AM CDT Assessment Noted Time PHQ-9 Depression Total Score: 4 06/20/20 23 8:40 AM LOGISTICS RESEARCH ENGINEER documented as of this encounter Care Teams Tours Captain Relationship Specialty Start Date End Date Esha Grimm PA-C [address] [place] [address] PCP - General Family Medicine 05/04/23 Diana Desir, [facility] [address] [place] [address] Pharmacist Pharmacist 04/17/21 Rain Galaviz PA-C [address] [place] [address] [address] [place] [address] Physician Tube Buffer Dermatology 04/28/21 Tavia Wyatt MD [address] [place] [address] [address] [place] [address] Dermatology 07/14/21 Erica Farrell APRN FIRE HOSE CURER [address] [place], [place] [address] Nurse Practitioner Cardiovascular Disease 09/09/21 Rich Barrett MD [address] [place] [address] 893315 Physician Ophthalmology 01/21/22 Neil Kent MD [address] [place] [address] Dermatology 02/24/22 [facility] [address] [place] [address] [id number] Assigned [place] Pharmacist 04/07/22 Livan Sharif MD [address], [facility]00 [place] [address] Cardiovascular Disease 05/14/22 Catherine Cm MD [address] [facility] [place] [address]55 Cardiovascular Disease 07/21/22 Valery Veronica PA-C [address] [place] [address] 664815 Physician Tube Buffer Dermatology 07/21/22 Brea Quinn APRN FIRE HOSE CURER 500 [place] [address] Nurse Practitioner Dermatology 09/21/22 Brea uQinn APRN FIRE HOSE CURER 6401 [place] [address] Assigned Surgical Provider 10/09/22 [place] [address] [facility] 300 [place] [address] Assigned Musculoskeletal Provider 10/09/22 Alfonso Renteria MD 5775 [facility] 200 [place] [address] Assigned Neuroscience Provider 04/02/23 Radha Lomeli APRN FIRE HOSE CURER [address] [phone] [place] [address] Assigned Heart and Vascular Provider 05/28/23 Jelena David OD [address] [facility] [place] [address] Ophthalmology 06/15/23 Pao Joseph, VJ Personal Advocate & Liaison (PAL) Nurse 08/01/23 11/07/23 Esha Grimm PA-C [address] [place] [address] Assigned PCP 07/16/23 Valery Veronica PA-C [address] [place] [address] Physician Tube Buffer Dermatology 09/19/23 Rey Tay MD [address] [place] [address] MD Gastroenterology 09/20/23 Rocky Zepeda DO [address] [place] [address] Physician Gastroenterology 09/20/23 Philip Dumont MD [address] [place] [address] Physician Ophthalmology 09/22/23 Meredith Carrera PA-C [address] [place] [address] Assigned Gastroenterology Provider 11/01/23 Neil Kent MD [address] [address] Dermatology 11/02/23 [place] [address] [place], [place] 671277 Neurological Surgery 12/26/23 documented as of this encounter
--- OUTSIDE RECORDS SUMMARY | 2024-01-07 18:11 | XMS_ITS | Encounter Summary ---
Author Organization [place] Address [address] [place] [address] Care Team Providers Care Straight Line Press Setter Name Role Phone Thang Diana [place] [facility] Unavailable Rain Galaviz PA-C Unavailable Tavia Wyatt MD Unavailable Unavailable Erica Farrell APRN CANVAS CUTTER Unavailable Rich Barrett MD Unavailable Neil Kent MD Unavailable Diana Desir Stanislav [facility] Unavailable [phone] Livan Sharif MD Unavailable Catherine Cm MD Unavailable + Valery Veronica PA-C Unavailable [phone] Brea Quinn BEST WORKER CANVAS CUTTER Unavailable Brea Quinn BEST WORKER CANVAS CUTTER Unavailable [phone] Jose Francisco Johnson MD Unavailable Alfonso Renteria MD Unavailable + [phone] Esha Grimm PA-C Primary Care Provider [phone] Radha Lomeli BEST WORKER CANVAS CUTTER Unavailable [phone] Jelena David OD Unavailable Pao Joseph RN Unavailable Unavailable AlfaWicholincoln [place]ina PA-C Unavailable [phone] Valery Veronica PA-C Unavailable Rey Tay MD Unavailable Rocky Zepeda DO Unavailable Philip Dumont MD Unavailable [phone] Meredith Carrera-C Unavailable [phone] Neil Kent MD Unavailable Juan Pablo Emmanuel MD Unavailable [phone] Encounter Details Date Type Department Care Team (Late st Contact Info) Description 08/04/2023 MyC Medical Advice [address] [address] [facility] 3033 [place] [address] Social History Tobacco Use Types [...] Answer Date Recorded PHQ-2 Score 0 06/20/2023 [facility] [...] exercise at this level? 30 min 03/10/2023 [place] Depression Scale Answer Date Recorded [place] Depression Score 5 01/14/2021 Last EPDS Self [...] Visit [facility] Neurology [address], [address] [place] [address] Genny Hyman PA-C [facility] Epilepsy Care 57[address] [facility] 255 [place], [place] 4037[address] [place] [address] [facility] 300 [place], [place] [address] 02/06/2024 10:00 AM CDT Office Visit [facility] [address] [address] Neil Kent MD 500 [place], [place] 8[address] 03/06/2024 3:00 PM CDT Office Visit [facility] [address] [facility] [address] [place] [phone] Armani Radha E, BEST WORKER CANVAS CUTTER [address] [place] [address] 03/07/2024 9:00 AM CDT Hospital Encounter [address] 5th [place] [phone] Rocky Zepeda DO 500 [place], [place] [address]155 03/07/2024 9:00 AM CDT - 03/07/2024 9:30 AM CDT Surgery [address] [phone] Rocky Zepeda DO 500 [place], [place] 8[address]045 Esophagoscopy, gastroscopy, duodenoscopy (EGD), combined Scheduled Procedures [...] Total Score: 4 06/20/20 23 8:40 AM PRIMARY GRADE TEACHER documented as of this encounter Care Teams Straight Line Press Setter Relationship Specialty Start Date End Date Esha Grimm PA-C [address] [place] [phone] PCP - General Family Medicine 05/04/23 Diana Desir, [facility] [address] [place] [address] Pharmacist Pharmacist 04/17/21 Rain Galaviz PA-C [address] [place] [address] [address] [place] [address] Physician Elevated Work Platform Operator Dermatology 04/28/21 Tavia Wyatt MD [address] [place] [address] [place] [address] Dermatology 07/14/21 Erica Farrell APRN CANVAS CUTTER [address] [place] [address] Nurse Practitioner Cardiovascular Disease 09/09/21 Rich Barrett MD [address] [facility] [address] [place], [place] 36[address] Physician Ophthalmology 01/21/22 Neil Kent MD 500 [place], [place] 09[address]65 Dermatology 02/24/22 Diana Desir, [facility] 3033 [place] [address] Assigned MTM Pharmacist 04/07/22 Livan Sharif MD [address] [place] [address] [place] [address] Cardiovascular Disease 05/14/22 Catherine Cm MD [address] [place] [address] [place] [address] Cardiovascular Disease 07/21/22 Valery Veronica PA-C 909 [place], [place] 8[address]95 Physician Elevated Work Platform Operator Dermatology 07/21/22 Brea Quinn APRN CANVAS CUTTER 500 [place] [address] Nurse Practitioner Dermatology 09/21/22 Brea Quinn APRN CANVAS CUTTER 6401 [place], [place] 328032 Assigned Surgical Provider 10/09/22 [place] [address] [facility] 300 [place], [place] 991487 Assigned Musculoskeletal Provider 10/09/22 Alfonso Renteria MD 5775 [facility] 200 [place], [place] 447[address] Assigned Neuroscience Provider 04/02/23 Radha Lomeli APRN CANVAS CUTTER 6405 [facility] [address] [place] [address] Assigned Heart and Vascular Provider 05/28/23 J[address] David OD [address] [facility] [place] [address] Ophthalmology 06/15/23 Pao Joseph, VJ Personal Advocate & Liaison (PAL) Nurse 08/01/23 11/07/23 Esha Grimm PA-C [address] [place] [phone] Assigned PCP 07/16/23 Valery Veronica PA-C [address] [place] [address] 885255 Physician Elevated Work Platform Operator Dermatology 09/19/23 Rey Tay MD [address] [place] [address] MD Gastroenterology 09/20/23 Rocky Zepeda DO [address] [place] [address] 969565 Physician Gastroenterology 09/20/23 Philip Dumont MD [address] [place] [address] 19[address] Physician Ophthalmology 09/22/23 Meredith Carrera PA-C [address] [place] [address] Assigned Gastroenterology Provider 11/01/23 Neil Kent MD [address] [address] Dermatology 11/02/23 [place] [address] [place] [address] Neurological Surgery 12/26/23 documented as of this encounter
--- OUTSIDE RECORDS SUMMARY | 2024-01-07 18:11 | XMS_ITS | Encounter Summary ---
Author Organization [place] Address [address] [place] [address] Care Team Providers Care Software Developer Manager Name Role Phone Thang Diana [place] [facility] Unavailable Rain Galaviz PA-C Unavailable Tavia Wyatt MD Unavailable Unavailable Erica Farrell APRN BOAT JOINER HELPER Unavailable Rich Barrett MD Unavailable Neil Kent MD Unavailable Diana Desir Stanislav [facility] Unavailable [phone] Livan Sharif MD Unavailable Catherine Cm MD Unavailable + Valery Veronica PA-C Unavailable [phone] Brea Quinn THERAPY TEACHER BOAT JOINER HELPER Unavailable Brea Quinn THERAPY TEACHER BOAT JOINER HELPER Unavailable Jose Francisco Johnson MD Unavailable Alfonso Renteria MD Unavailable + [phone] Esha Grimm PA-C Primary Care Provider Radha Lomeli THERAPY TEACHER BOAT JOINER HELPER Unavailable [phone] Jelena David OD Unavailable Pao Joseph RN Unavailable Unavailable Esha GrimmC Unavailable [phone] Valery Veronica PA-C Unavailable [phone] Rey Tay MD Unavailable Rocky Zepeda DO Unavailable Philip Dumont MD Unavailable [phone] Meredith CarreraC Unavailable [phone] Neil Kent MD Unavailable Juan Pablo Emmanuel MD Unavailable [phone] Encounter Details Date Type Department Care Team (Late st Contact Info) Description 08/10/2023 MyC Medical Advice [facility] [address] [place] [address] Esha Grimm PA-C [id number] [place] [phone] Social History Tobacco Use Types Packs/Day [...] often do you attend chur ch or presybeterian services? 1 to 4 times [...] Answer Date Recorded PHQ-2 Score 0 06/20/2023 [facility]at ional Health - [...] exercise at this level? 30 min 03/10/2023 [place] Depression Scale Answer Date Recorded [place] Depression Score 5 01/14/2021 Last EPDS Self [...] Asiya Reddy RN - 08/10/2023 11:40 AM CHASER TAR Esha- see Hologict message below. Patient did call to see if E-Visit would be addressed today. No immediate concern at this time. Advised UC if needed sooner. Asiya Reddy RN ER TAR documented in this encounter Plan of Treatment Upcoming Encounters Date Type Department Care Team (Late st Contact Info) Description 01/09/2024 10:15 AM CDT Office Visit [facility] Neurology Clinics - [address], [address] [place] [address] Genny Hyman PA-C [facility] Epilepsy Care [address] [facility] [address] [place], [place] 3587[address] [place] [address] [place], [place] [id number] 02/06/2024 10:00 AM CDT Office Visit [facility] [place] [address] [phone] Neil Kent MD 500 [place] [address] 03/06/2024 3:00 PM CDT Office Visit [facility] Heart [facility] [address] [facility] [address] [place] [phone] Radha Lomeli, THERAPY TEACHER BOAT JOINER HELPER [address] [place], [place] [address] 03/07/2024 9:00 AM CDT Hospital Encounter [facility] [address] [place] [phone] Rocky Zepeda DO 500 [place] [address] 03/07/2024 9:00 AM CDT - 03/07/2024 9:30 AM CDT Surgery [address] [phone] Rocky Zepeda DO 500 [place], [place] 78[address] Esophagoscopy, gastroscopy, duodenoscopy (EGD), combined Scheduled Procedures [...] Total Score: 4 06/20/20 23 8:40 AM CHASER TAR documented as of this encounter Care Teams Software Developer Manager Relationship Specialty Start Date End Date Esha Grimm PA-C [address] [place] [address] PCP - General Family Medicine 05/04/23 Diana Desir, [facility] [address] [place] [address] Pharmacist Pharmacist 04/17/21 Rain Gaalviz PA-C [address] [place] [address] [address] [place] [address] Physician Property Specialist Dermatology 04/28/21 Tavia Wyatt MD [address] [place] [address] [place] [address] Dermatology 07/14/21 Erica Farrell APRN BOAT JOINER HELPER 6405 [facility] [address] [place] [address] Nurse Practitioner Cardiovascular Disease 09/09/21 Rich Barrett MD 516 [facility] 9A [place], [place] [address] Physician Ophthalmology 01/21/22 Neil Kent MD 500 [place], [place] 473735 Dermatology 02/24/22 Diana Desir, [facility] [address] [place] [address] Assigned MTM Pharmacist 04/07/22 Livan Sharif MD [address] [facility] [address] [place] [address] Cardiovascular Disease 05/14/22 Catherine Cm MD [address] [facility] [address] [place] 125165 Cardiovascular Disease 07/21/22 Valery Veronica, PAUcheC [address] [place] [address] 992855 Physician Property Specialist Dermatology 07/21/22 Brea Quinn APRN BOAT JOINER HELPER 500 [place], [place] 149345 Nurse Practitioner Dermatology 09/21/22 Brea Quinn APRN BOAT JOINER HELPER 6401 [facility] [place], [place] 835222 Assigned Surgical Provider 10/09/22 [place] [address] [address] Assigned Musculoskeletal Provider 10/09/22 Alfonso Renteria MD [address] [facility] 200 [place], [place] 7730[address] Assigned Neuroscience Provider 04/02/23 Radha Lomeli APRN BOAT JOINER HELPER [address] [place] [address] Assigned Heart and Vascular Provider 05/28/23 Jelena David OD [address] [facility] [place] [address] Ophthalmology 06/15/23 Pao Joseph, RN Personal Advocate & Liaison (PAL) Nurse 08/01/23 11/07/23 Esha Grimm PA-C [address] [place] [phone] Assigned PCP 07/16/23 Valery Veronica PA-C [address] [place] [address] 536805 Physician Property Specialist Dermatology 09/19/23 Rey Tay MD [address] [place] [address] 414435 MD Gastroenterology 09/20/23 Rocky Zepeda DO [address] [place] [address] 112505 Physician Gastroenterology 09/20/23 Philip Dumont MD [address] [place] [address] 344625 Physician Ophthalmology 09/22/23 Meredith Carrera PA-C [address] [place] [address] 769815 Assigned Gastroenterology Provider 11/01/23 Neil Kent MD [address] [address] Dermatology 11/02/23 [place] [address] [place] [address] Neurological Surgery 12/26/23 documented as of this encounter
--- OUTSIDE RECORDS SUMMARY | 2024-01-07 18:11 | XMS_ITS | Encounter Summary ---
Author Organization [place] Address [address] [place] [address] Care Team Providers Care Special Events Fundraiser Name Role Phone Thang Diana [place] [facility] Unavailable [phone] Rain Galaviz PA-C Unavailable Tavia Wyatt MD Unavailable Unavailable Erica Farrell APRN ARMHOLE BASTER HAND Unavailable Rich Barrett MD Unavailable Neil Kent MD Unavailable Diana Desir Stanislav [facility] Unavailable [phone] Livan Sharif MD Unavailable Catherine Cm MD Unavailable + Valery Veronica PA-C Unavailable [phone] Brea Quinn CLINICAL MASSAGE THERAPIST ARMHOLE BASTER HAND Unavailable Brea Quinn CLINICAL MASSAGE THERAPIST ARMHOLE BASTER HAND Unavailable Jose Francisco Johnson MD Unavailable Alfonso Renteria MD Unavailable + [phone] Esha Grimm PA-C Primary Care Provider Radha Lomeli CLINICAL MASSAGE THERAPIST ARMHOLE BASTER HAND Unavailable [phone] Jelena David OD Unavailable Pao Joseph RN Unavailable Unavailable [facility] PA-C Unavailable [phone] Valery Veronica PA-C Unavailable Rey Tay MD Unavailable Rocky Zepeda DO Unavailable Philip Dumont MD Unavailable [phone] Meredith Carrera-C Unavailable [phone] Neil Kent MD Unavailable Juan Pablo Emmanuel MD Unavailable [phone] Encounter Details Date Type Department Care Team (Late st Contact Info) Description 08/25/2023 MyC Medical Advice [address] [phone] [facility] 3033 [place] [address] Social History Tobacco Use Types [...] Answer Date Recorded PHQ-2 Score 0 06/20/2023 [facility] of Occupat ional Health - Occupational Stress [...] exercise at this level? 30 min 03/10/2023 [place] Depression Scale Answer Date Recorded [place] Depression Score 5 01/14/2021 Last EPDS Self [...] Description 01/09/2024 10:15 AM CDT Office Visit [facility] Neurology [address], [address] [place] [address] Genny Hyman PA-C [facility] Epilepsy Care 5775 [facility] 255 [place], [place] [address] [place] [address] [facility] 300 [place], [place] [address] 02/06/2024 10:00 AM CDT Office [facility] [address] [address] Neil Kent MD 500 [place], [place] 478135 03/06/2024 3:00 PM CDT Office Visit [facility] [address] [facility] [address] [place] [phone] Armani Radha E, CLINICAL MASSAGE THERAPIST ARMHOLE BASTER HAND [address] [place] [address] 03/07/2024 9:00 AM CDT Hospital Encounter [address] 5th [place] [phone] Rocky Zepeda DO 500 [place], [place] 8611[address] 03/07/2024 9:00 AM CDT - 03/07/2024 9:30 AM CDT Surgery [address] [phone] Rocky Zepeda DO 500 [place], [place] 548195 Esophagoscopy, gastroscopy, duodenoscopy (EGD), combined Scheduled Procedures Name Priority Associated Diagnoses Date/Ti tn ESOPHAGOGASTRODUODENOSCOPY Eosinophilic esophagitis Esophageal dysphagia 03/07/2024 9:00 AM CDT documented as of this encounter Visit Diagnoses Not on filedocumented in this encounter Additional Health Concerns Infection Onset Date Last Indicated Resolved Time Rule Out COVID-19 12/26/2023 12/26/2023 12/26/2023 9:50 AM CDT Assessment Noted Time PHQ-9 Depression Total Score: 4 06/20/20 23 8:40 AM CONSTRUCTION FRAMER documented as of this encounter Care Teams Special Events Fundraiser Relationship Specialty Start Date End Date Esha Grimm PA-C [address] [place] [phone] PCP - General Family Medicine 05/04/23 Diana Desir, [facility] 3033 [place] [address] Pharmacist Pharmacist 04/17/21 Rain Galaviz PA-C [address] [place] [address] [address] [place] [address] Physician Creel Cleaner Dermatology 04/28/21 Tavia Wyatt MD [address] [place] [address] [place] [address] Dermatology 07/14/21 Erica Farrell APRN ARMHOLE BASTER HAND [address] [place] [address] Nurse Practitioner Cardiovascular Disease 09/09/21 Rich Barrett MD 516 [facility] 9A [place], [place] 260[address] Physician Ophthalmology 01/21/22 Neil Kent MD 500 [place], [place] 195335 Dermatology 02/24/22 Diana Desir, [facility] 3033 [place] [address] Assigned MTM Pharmacist 04/07/22 Livan Sharif MD [address], [place] [address] [place] 6029[address] Cardiovascular Disease 05/14/22 Catherine Cm MD [address] [place] [address] [place] [address] Cardiovascular Disease 07/21/22 Valery Veronica PA-C 909 [place], [place] 898165 Physician Creel Cleaner Dermatology 07/21/22 Brea Quinn APRN ARMHOLE BASTER HAND 500 [place] [address] Nurse Practitioner Dermatology 09/21/22 rBea Quinn APRN ARMHOLE BASTER HAND 6401 [place], [place] 363482 Assigned Surgical Provider 10/09/22 [place] [address] [address] [facility] 300 [place], [place] 309977 Assigned Musculoskeletal Provider 10/09/22 Alfonso Renteria MD [address] [facility] 200 [place], [place] 7[address] Assigned Neuroscience Provider 04/02/23 Radha Lomeli APRN ARMHOLE BASTER HAND 6405 [facility] [address] [place] [address]35 Assigned Heart and Vascular Provider 05/28/23 Jelena David OD 3[address] [facility] [address] Ophthalmology 06/15/23 Pao Joseph, VJ Personal Advocate & Liaison (PAL) Nurse 08/01/23 11/07/23 Esha Grimm PA-C [address] [place] [phone] Assigned PCP 07/16/23 Valery Veronica PA-C [address] [place] [address] 573135 Physician Creel Cleaner Dermatology 09/19/23 Rey Tay MD [address] [place] [address] MD Gastroenterology 09/20/23 Rocky Zepeda DO [address] [place] [address] 658985 Physician Gastroenterology 09/20/23 Philip Dumont MD [address] [place] [address] 871605 Physician Ophthalmology 09/22/23 Meredith Carrera PA-C [address] [place] [address] Assigned Gastroenterology Provider 11/01/23 Neil Kent MD [address] [address] Dermatology 11/02/23 [place] [address] [place] [address] Neurological Surgery 12/26/23 documented as of this encounter
--- OUTSIDE RECORDS SUMMARY | 2024-01-07 18:11 | XMS_ITS | Encounter Summary ---
Author Organization [place] Address [address] [place] [address] Care Team Providers Care Medical Insurance Claims Processor Name Role Phone ThangKendrickDiana T [facility] Unavailable Rain Galaviz-C Unavailable Tavia Wyatt MD Unavailable Unavailable Erica Farrell REFUND SPECIALIST RENEWALS SPECIALIST Unavailable Rich Barrett MD Unavailable Neil Kent MD Unavailable Diana Desir [facility] Unavailable Livan Sharif MD Unavailable Catherine Cm MD Unavailable + Valery Veronica-C Unavailable [phone] Brea Quinn REFUND SPECIALIST RENEWALS SPECIALIST Unavailable Brea Quinn REFUND SPECIALIST RENEWALS SPECIALIST Unavailable Jose Francisco Johnson MD Unavailable Sydnie Martinez RN Unavailable Unavailable Alfonso Renteria MD Unavailable + [phone] Esha Grimm PA-C Primary Care Provider [phone] Radha Lomeli REFUND SPECIALIST RENEWALS SPECIALIST Unavailable Jelena David OD Unavailable Pao Joseph RN Unavailable Unavailable [facility] [place] PA-C Unavailable [phone] JeremíasValery PA-C Unavailable [phone] Rey Tay MD Unavailable Rocky Zepeda DO Unavailable Philip Dumont MD Unavailable [phone] Meredith Carrera PA-C Unavailable [phone] Neil Kent MD Unavailable Juan Pablo Emmanuel MD Unavailable [phone] Encounter Details Date Type Department Care Team (Late st Contact Info) Description 07/27/2023 [facility] [place] [address] [address] [facility] [address] [place] [address] Social History Tobacco Use Types [...] Answer Date Recorded PHQ-2 Score 0 06/20/2023 [facility] of Occupat ional Health - Occupational Stress [...] exercise at this level? 30 min 03/10/2023 [place] Depression Scale Answer Date Recorded [place] Depression Score 5 01/14/2021 Last EPDS Self [...] Description 01/09/2024 10:15 AM CDT Office Visit [facility] Neurology [address], [address] [place] [address] Genny Hyman PAUcheC [facility] Epilepsy Care 5775 [facility] 255 [place], [place] 37[address] [place] [address] [address] [facility] 300 [place], [place] 08[address] 02/06/2024 10:00 AM CDT Office Visit [facility] [address] [address] Neil Kent MD 500 [place], [place] 94[address]85 03/06/2024 3:00 PM CDT Office Visit [facility] Heart [facility] [address] [place] [address] Radha Lomeli E, REFUND SPECIALIST RENEWALS SPECIALIST [address] [place] [address] 03/07/2024 9:00 AM CDT Hospital Encounter [address] 5th [place] [phone] Rocky Zepeda DO 500 [place], [place] 9[address] 03/07/2024 9:00 AM CDT - 03/07/2024 9:30 AM CDT Surgery [address] [phone] Rocky Zepeda DO 500 [place], [place] 77[address] Esophagoscopy, gastroscopy, duodenoscopy (EGD), combined Scheduled Procedures [...] Total Score: 4 06/20/20 23 8:40 AM PRECISION AGRONOMIST documented as of this encounter Care Teams Medical Insurance Claims Processor Relationship Specialty Start Date End Date Esha Grimm PA-C [address] [place] [address] PCP - General Family Medicine 05/04/23 Diana Desir, [facility] [address] [place] [address] Pharmacist Pharmacist 04/17/21 Rain Galaviz PA-C [address] [place] [address] [address] [place] [address] Physician Clinical Appeals Auditor Dermatology 04/28/21 Tavia Wyatt MD [address] [place] [address] [place] [address] Dermatology 07/14/21 Erica Farrell APRN RENEWALS SPECIALIST [address] [place] 813765 Nurse Practitioner Cardiovascular Disease 09/09/21 Rich Barrett MD [address] [place] [address] 582385 Physician Ophthalmology 01/21/22 Neil Kent MD 500 [place], [place] 575625 Dermatology 02/24/22 Diana Desir, [facility] 3033 [place] [address] Assigned MTM Pharmacist 04/07/22 Livan Sharif MD [address] [place] 456485 Cardiovascular Disease 05/14/22 Catherine Cm MD [address] [address] [place] 571585 Cardiovascular Disease 07/21/22 Valery Veronica PA-C 909 [place] [address] Physician Clinical Appeals Auditor Dermatology 07/21/22 Brea Quinn APRN RENEWALS SPECIALIST 500 [place], [place] 512145 Nurse Practitioner Dermatology 09/21/22 Brea Quinn APRN RENEWALS SPECIALIST 6401 [facility] [place] 48[address]62 Assigned Surgical Provider 10/09/22 [place] [address] [address] [facility] 300 [place] [address] Assigned Musculoskeletal Provider 10/09/22 Sydnie Martinez RN Personal Advocate & Liaison (PAL) Family Medicine 03/28/23 07/31/23 Alfonso Renteria MD 5775 [facility] 200 [place] [address] Assigned Neuroscience Provider 04/02/23 Radha Lomeli APRN RENEWALS SPECIALIST [address] [place] [phone] [place] [address] Assigned Heart and Vascular Provider 05/28/23 Jelena David OD [address] [place] [address] Ophthalmology 06/15/23 Pao Joseph, VJ Personal Advocate & Liaison (PAL) Nurse 08/01/23 11/07/23 Esha Grimm PA-C [address] [facility] [place] [address] Assigned PCP 07/16/23 Valery Veronica PA-C [address] [place] [address] Physician Clinical Appeals Auditor Dermatology 09/19/23 Rey Tay MD [address] [place] [address] MD Gastroenterology 09/20/23 Rocky Zepeda DO [address] [place] [address] Physician Gastroenterology 09/20/23 Philip Dumont MD [address] [place] [address] Physician Ophthalmology 09/22/23 Meredith Carrera PA-C [address] [place] [address] Assigned Gastroenterology Provider 11/01/23 Neil Kent MD [address] [address] Dermatology 11/02/23 [place] [address] [place] [address] Neurological Surgery 12/26/23 documented as of this encounter
--- OUTSIDE RECORDS SUMMARY | 2024-01-07 18:11 | XMS_ITS | Encounter Summary ---
Author Organization [place] Address [address] [place] [address] Care Team Providers Care Forensic Locksmith Name Role Phone Thang Diana [place] [facility] Unavailable Rain Galaviz PA-C Unavailable [phone] Tavia Wyatt MD Unavailable Unavailable Erica Farrell APRN APPLICATIONS ANALYST Unavailable Rich Barrett MD Unavailable Neil Kent MD Unavailable Diana Desir Stanislav [facility] Unavailable [phone] Livan Sharif MD Unavailable Catherine Cm MD Unavailable + Valery Veronica PA-C Unavailable [phone] Brea Quinn MAILER APPLICATIONS ANALYST Unavailable Brea Quinn MAILER APPLICATIONS ANALYST Unavailable [phone] Jose Francisco Johnson MD Unavailable Alfonso Renteria MD Unavailable + [phone] Esha Grimm PA-C Primary Care Provider Radha Lomeli MAILER APPLICATIONS ANALYST Unavailable [phone] Jelena David OD Unavailable Pao Joseph RN Unavailable Unavailable Esha GrimmC Unavailable [phone] Valery Veronica PA-C Unavailable [phone] Rey Tay MD Unavailable Rocky Zepeda DO Unavailable Philip Dumont MD Unavailable [phone] Meredith CarreraC Unavailable [phone] Neil Kent MD Unavailable Juan Pablo Emmanuel MD Unavailable [phone] Reason for Visit * Reason Onset Date Comments Call Back 08/01/2023 Encounter Details Date Type Department Care Team (Late st Contact Info) Description 08/01/2023 Telephone [facility] [address] [place] [address] Esha Grimm PA-C [address] [place] [address] Call Back Social History Tobacco Use [...] often do you attend chur ch or hinduism services? 1 to 4 times per year [...] exercise at this level? 30 min 03/10/2023 Bly Depression Scale Answer Date Recorded Bly Depression Score 5 01/14/2021 Last EPDS Self [...] Grimm PA-C on 08/02/2023 at 7:49 AM T VAULT CLERK * Telephone Encounter - Debbie Shahid - [...] we [facility] or would you prefer to receive a phone call?: No preference Okay to leave a detailed message?: Yes at Home number on file [phone] (home) T VAULT CLERK documented in this encounter Plan of Treatment Upcoming Encounters Date Type Department Care Team (Late st Contact Info) Description 01/09/2024 10:15 AM CDT Office Visit [facility] Neurology [facility] [address] [facility], [address] [place] [phone] Genny Hyman, ROVERTO [facility] Epilepsy [facility] [address] [facility] 255 [place], [place] [address] [place] [address] [facility] 300 [place], [place] [address] 02/06/2024 10:00 AM CDT Office Visit [facility] [address] [phone] Neil Kent MD 500 [place], [place] [phone] 03/06/2024 3:00 PM CDT Office Visit [facility] Heart [facility] [address] [facility] [address] [place] [phone] Radha Lomeli, MAILER APPLICATIONS ANALYST 6405 [facility] [address] [place], [place] [address] 03/07/2024 9:00 AM CDT Hospital Encounter [facility] [address] [facility] [address] 5th [place] [phone] Rocky Zepeda DO 500 [place], [place] [address] 03/07/2024 9:00 AM CDT - 03/07/2024 9:30 AM CDT Surgery [facility] [address] [facility] [address] 5th [place] [phone] Rocky Zepeda DO 500 [place] [address] Esophagoscopy, gastroscopy, duodenoscopy (EGD), combined Scheduled Procedures [...] Total Score: 4 06/20/20 23 8:40 AM TRUST VAULT CLERK documented as of this encounter Care Teams Forensic Locksmith Relationship Specialty Start Date End Date Esha Grimm PA-C [address] [place] [address] PCP - General Family Medicine 05/04/23 Diana Desir, [facility] [address] [place] [address] Pharmacist Pharmacist 04/17/21 Rain Galaviz PA-C [address] [place] [address] ENMA KNUTSON [address] Physician Data Solutions Architect Dermatology 04/28/21 Tavia Wyatt MD [address] [place] [address] [address] [address] Dermatology 07/14/21 Erica Farrell APRN APPLICATIONS ANALYST 6405 [facility] [address] [address]2065 Nurse Practitioner Cardiovascular Disease 09/09/21 Rich Barrett MD 516 [facility] 9[address] [place], [place] [address] Physician Ophthalmology 01/21/22 Neil Kent MD 500 [place], [place] 239615 Dermatology 02/24/22 Diana Desir, [facility] 3033 [place], [place] [address] Assigned [facility] Pharmacist 04/07/22 Livan Sharif MD [address] [facility]00 [place] [address] Cardiovascular Disease 05/14/22 Catherine Cm MD [address] 778385 Cardiovascular Disease 07/21/22 Valery Veronica, PA-C [address] [place] [address] 543225 Physician Data Solutions Architect Dermatology 07/21/22 Brea Quinn APRN APPLICATIONS ANALYST 500 [place], [place] [address] Nurse Practitioner Dermatology 09/21/22 Brea Quinn APRN APPLICATIONS ANALYST 6401 [facility] [place], [place] [address] Assigned Surgical Provider 10/09/22 [place] [address] [address] [facility] 300 [place] [address] Assigned Musculoskeletal Provider 10/09/22 Alfonso Renteria MD [address]75 [facility] 200 [place], [place] [address] Assigned Neuroscience Provider 04/02/23 Radha Lomeli APRN APPLICATIONS ANALYST 6405 [facility] [address] [place] [address] Assigned Heart and Vascular Provider 05/28/23 Jelena David OD [address] [place] [address] Ophthalmology 06/15/23 Pao Joseph, RN Personal Advocate & Liaison (PAL) Nurse 08/01/23 11/07/23 Esha Grimm PA-C [address] [place] [address] Assigned PCP 07/16/23 Valery Veronica PA-C [address] [place] [address] 268065 Physician Data Solutions Architect Dermatology 09/19/23 Rey Tay MD [address] [place] [address] 670085 Gastroenterology 09/20/23 Rocky Zepeda DO [address] [place] [address] 172925 Physician Gastroenterology 09/20/23 Philip Dumont MD 516 [place] [address] Physician Ophthalmology 09/22/23 Meredith Carrera PA-C [address] [place] [address] 006035 Assigned Gastroenterology Provider 11/01/23 Neil Kent MD [address] 081480 Dermatology 11/02/23 [place] [address] [place] [address] Neurological Surgery 12/26/23 documented as of this encounter
--- OUTSIDE RECORDS SUMMARY | 2024-01-07 18:11 | XMS_ITS | Encounter Summary ---
Author Organization [place] Address [address] [place] [address] Care Team Providers Care Manager Community Development Name Role Phone ThangKendrickDiana T [facility] Unavailable Rain Galaviz-C Unavailable Tavia Wyatt MD Unavailable Unavailable Erica Farrell SUPERVISOR ELECTRIC MOTOR TESTING CANVAS WORKER APPRENTICE Unavailable Rich Barrett MD Unavailable Neil Kent MD Unavailable Diana Desir [facility] Unavailable [phone] Livan Sharif MD Unavailable Catherine Cm MD Unavailable + Valery Veronica-C Unavailable [phone] Brea Quinn SUPERVISOR ELECTRIC MOTOR TESTING CANVAS WORKER APPRENTICE Unavailable Brea Quinn SUPERVISOR ELECTRIC MOTOR TESTING CANVAS WORKER APPRENTICE Unavailable Jose Francisco Johnson MD Unavailable Sydnie Martinez RN Unavailable Unavailable Alfonso Renteria MD Unavailable + [phone] Esha Grimm PA-C Primary Care Provider Lomeli, Radha E SUPERVISOR ELECTRIC MOTOR TESTING CANVAS WORKER APPRENTICE Unavailable [phone] Jelena David OD Unavailable Pao Joseph RN Unavailable Unavailable Esha Grimm Adam PA-C Unavailable [phone] JreemíasValery PA-C Unavailable [phone] Rey Tay MD Unavailable Rocky Zepeda DO Unavailable Philip Dumont MD Unavailable [phone] Meredith Carrera PA-C Unavailable [phone] Neil Kent MD Unavailable Juan Pablo Emmanuel MD Unavailable [phone] Encounter Details Date Type Department Care Team (Late st Contact Info) Description 07/29/2023 MyC Medical Advice [address] [address] Pao Joseph, RN Social History [...] Answer Date Recorded PHQ-2 Score 0 06/20/2023 [facility] - Occupational Stress Questionnaire Answer [...] exercise at this level? 30 min 03/10/2023 Cary Depression Scale Answer Date Recorded Cary Depression Score 5 01/14/2021 Last EPDS Self [...] Description 01/09/2024 10:15 AM CDT Office Visit [facility] Neurology [address], [address] [place] [phone] Genny Hyman PA-C [facility] Epilepsy [facility] Emergency Department [address] [facility] 255 [place], [place] [address]69[address] [place] [address] [facility] 300 [place], [place] [address] 02/06/2024 10:00 AM CDT Office [facility] [address] [phone] Neil Kent MD 500 [place], [place] [address] 03/06/2024 3:00 PM CDT Office Visit [facility] Heart [facility] [address] [facility] [address] [place] [phone] Radha Lomeli APRN CANVAS WORKER APPRENTICE 64[address] [facility] [address] [place] [address] 03/07/2024 9:00 AM CDT Hospital Encounter [facility] [place] 909 [facility] 5th [place] [phone] Rocky Zepeda, DO 500 [place], [place] [address] 03/07/2024 9:00 AM CDT - 03/07/2024 9:30 AM CDT Surgery [facility] 909 [facility] 5th [place] [phone] Rocky Zepeda, DO 500 [place], [place] 4157[address] Esophagoscopy, gastroscopy, duodenoscopy (EGD), combined Scheduled Procedures [...] Total Score: 4 06/20/20 23 8:40 AM ORNAMENTAL METAL ERECTOR documented as of this encounter Care Teams Manager Community Development Relationship Specialty Start Date End Date Esha Grimm PA-C [address] [place] [address] PCP - General Family Medicine 05/04/23 Diana Desir [facility] [address] [place] [address] Pharmacist Pharmacist 04/17/21 Rain Galaviz PA-C [address] [place] [address] [address] [facility] [address] Physician Clay Burner Dermatology 04/28/21 Tavia Wyatt MD [address] [place] [address] [address] [place] [address] Dermatology 07/14/21 Erica Farrell APRN CANVAS WORKER APPRENTICE [address] [place] [address]35 Nurse Practitioner Cardiovascular Disease 09/09/21 Rich Barrett MD [address] [place] [address] 771855 Physician Ophthalmology 01/21/22 Neil Kent MD [address] [place] [address] 091405 Dermatology 02/24/[address] [facility] [address] [place] [address] 608096 Assigned [place] Pharmacist 04/07/22 Livan Sharif MD [address], [facility]00 [place] 96[address] Cardiovascular Disease 05/14/22 Catherine Cm MD [address] [facility]00 [place] [address] Cardiovascular Disease 07/21/22 Valery Veronica PA-C [address] [place] [address] Physician Clay Burner Dermatology 07/21/22 Brea Quinn APRN CANVAS WORKER APPRENTICE 500 [place] [address] Nurse Practitioner Dermatology 09/21/22 Brea Quinn APRN CANVAS WORKER APPRENTICE 6401 [place] [address] Assigned Surgical Provider 10/09/22 [place] [address] [place] [address] Assigned Musculoskeletal Provider 10/09/22 Sydnie Martinez RN Personal Advocate & Liaison (PAL) Family Medicine 03/28/23 07/31/23 Alfonso Renteria MD 5775 [facility] 200 [place], [place] 685766 Assigned Neuroscience Provider 04/02/23 Radha Lomeli APRN CANVAS WORKER APPRENTICE 6[address] [facility] [address] [place] [address] Assigned Heart and Vascular Provider 05/28/23 Jelena David OD [address] [facility] [place] [address] Ophthalmology 06/15/23 Pao Joseph, VJ Personal Advocate & Liaison (PAL) Nurse 08/01/23 11/07/23 Esha Grimm, PAUcheC [address] [place] [address] Assigned PCP 07/16/23 Valery Veronica PAUcheC [address] [place] [address] 272765 Physician Clay Burner Dermatology 09/19/23 Rey Tay MD [address] [place] [address] MD Gastroenterology 09/20/23 Rocky Zepeda DO [address] [place] [address] 506405 Physician Gastroenterology 09/20/23 Philip Dumont MD [address] [place] [address] 111035 Physician Ophthalmology 09/22/23 Meredith Carrera PA-C [address] [place] [address] Assigned Gastroenterology Provider 11/01/23 Neil Kent MD [address] [address] Dermatology 11/02/23 [place] [address] [facility] [address] Neurological Surgery 12/26/23 documented as of this encounter
--- OUTSIDE RECORDS SUMMARY | 2024-01-07 18:11 | XMS_ITS | Encounter Summary ---
Author Organization [place] Address [address] [place] [address] Care Team Providers Care Professor Of Apologetics Name Role Phone Thang Diana [place] [facility] Unavailable Rain Galaviz PA-C Unavailable aTvia Wyatt MD Unavailable Unavailable Erica Farrell APRN INTERN ARCHITECT Unavailable Rich Barrett MD Unavailable Neil Kent MD Unavailable Diana Desir Stanislav [facility] Unavailable [phone] Livan Sharif MD Unavailable Catherine Cm MD Unavailable + Valery Veronica PA-C Unavailable [phone] Brea Quinn THROUGH OPERATOR INTERN ARCHITECT Unavailable [phone] Brea Quinn THROUGH OPERATOR INTERN ARCHITECT Unavailable Jose Francisco Johnson MD Unavailable Alfonso Renteria MD Unavailable + [phone] Esha Grimm PA-C Primary Care Provider Radha Lomeli THROUGH OPERATOR INTERN ARCHITECT Unavailable [phone] Jelena David OD Unavailable [phone] Pao Joseph RN Unavailable Unavailable AlfaEsha Adam PA-C Unavailable [phone] Valery Veronica PA-C Unavailable [phone] Rey Tay MD Unavailable Rocky Zepeda DO Unavailable Philip Dumont MD Unavailable [phone] Meredith Carrera PA-C Unavailable [phone] Neil Kent MD Unavailable Juan Pablo Emmanuel MD Unavailable [phone] Encounter Details Date Type Department Care Team (Late st Contact Info) Description 08/31/2023 MyC Medical Advice [facility] [address] [facility] [address] [place] [address] Amalia Reyes, VJ Social History Tobacco Use Types Packs/Day [...] Date Recorded PHQ-2 Score 0 06/20/2023 [facility] - Occupational Stress Questionnaire Answer Date [...] in an abandoned building, in an overnight mcfp, or couch-surfing.) Yes 07/14/2023 Are you worried [...] Description 01/09/2024 10:15 AM CDT Office Visit [facility] Neurology [address], [address] [place] [phone] Genny Hyman PA-C [facility] Epilepsy [facility] 5775 [facility] 255 [place], [place] 6[address] [place] [address] [facility] 300 [place], [place] [address] 02/06/2024 10:00 AM CDT Office [facility] [address] [phone] Neil Kent MD 500 [place], [place] [address] 03/06/2024 3:00 PM CDT Office Visit [facility] Heart [facility] [address] [facility] [address] [place] [phone] Radha Lomeli, THROUGH OPERATOR INTERN ARCHITECT 2593 [facility] [address] [place] [address] 03/07/2024 9:00 AM CDT Hospital Encounter [facility] [place] 909 [facility] 5th [place] [address] Rocky Zepeda, DO 500 [place], [place] [address] 03/07/2024 9:00 AM CDT - 03/07/2024 9:30 AM CDT Surgery [facility] 909 [facility] 5th [place] [phone] Rocky Zepeda, DO 500 [place], [place] [address] Esophagoscopy, gastroscopy, duodenoscopy (EGD), combined Scheduled Procedures [...] Total Score: 4 06/20/20 23 8:40 AM WATCH COMMANDER documented as of this encounter Care Teams Professor Of Apologetics Relationship Specialty Start Date End Date Esha Grimm PA-C [address] [place] [address] PCP - General Family Medicine 05/04/23 Diana Desir [facility] [address] [place] [address] Pharmacist Pharmacist 04/17/21 Rain Galaviz PA-C [address] [place] [address] [address] [place] [address] Physician Occupational Therapist Aide Dermatology 04/28/21 Tavia Wyatt MD [address] [place] [address] [address] [place] [address] Dermatology 07/14/21 Erica Farrell APRN INTERN ARCHITECT [address] [place], [place] [address] Nurse Practitioner Cardiovascular Disease 09/09/21 Rich Barrett MD [address] [place] [address] 063435 Physician Ophthalmology 01/21/22 Neil Kent MD [address] [place] [address] 615[address] Dermatology 02/24/22 [facility] [address] [place] [address] 924266 Assigned [place] Pharmacist 04/07/22 Livan Sharif MD [address], [facility]00 [place] [address] Cardiovascular Disease 05/14/22 Catherine Cm MD [address] [facility]00 [place] [address]285 Cardiovascular Disease 07/21/22 Valery Veronica PA-C [address] [place] [address] 095985 Physician Occupational Therapist Aide Dermatology 07/21/22 Brea Quinn APRN INTERN ARCHITECT 500 [place] [address] Nurse Practitioner Dermatology 09/21/22 Brea Quinn APRN INTERN ARCHITECT 6401 [place] [address] Assigned Surgical Provider 10/09/22 [place] [address] [address] [facility] 300 [place] [address] Assigned Musculoskeletal Provider 10/09/22 Alfonso Renteria MD 5775 [facility] 200 [place] [address] Assigned Neuroscience Provider 04/02/23 Radha Lomeli APRN INTERN ARCHITECT [address] [place] 9708900 [place] [address] Assigned Heart and Vascular Provider 05/28/23 Jelena David OD [address] [facility] [place] [address] Ophthalmology 06/15/23 Pao Joseph, VJ Personal Advocate & Liaison (PAL) Nurse 08/01/23 11/07/23 Esha Grimm PA-C [address] [place] [address] Assigned PCP 07/16/23 Valery Veronica PA-C [address] [place] [address] Physician Occupational Therapist Aide Dermatology 09/19/23 Rey Tay MD [address] [place] [address] MD Gastroenterology 09/20/23 Rocky Zepeda DO [address] [place] [address] Physician Gastroenterology 09/20/23 Philip Dumont MD [address] [place] [address] Physician Ophthalmology 09/22/23 Meredith Carrera PA-C [address] [place] [address] Assigned Gastroenterology Provider 11/01/23 Neil Kent MD [address] [address] Dermatology 11/02/23 [place] [address] [place], [place] 339[address] Neurological Surgery 12/26/23 documented as of this encounter
--- OUTSIDE RECORDS SUMMARY | 2024-01-07 18:11 | XMS_ITS | Encounter Summary ---
Author Organization [facility] Address [address] [place] [address] Care Team Providers Care Precision Farming Specialist Name Role Phone Thang Diana [place] [facility] Unavailable [phone] Rain Galaviz-C Unavailable Tavia Wyatt MD Unavailable Unavailable Erica Farrell APRN PROMOTIONS EXECUTIVE Unavailable Rich Barrett MD Unavailable Neil Kent MD Unavailable Diana Desir [facility] Unavailable [phone] Livan Sharif MD Unavailable Catherine Cm MD Unavailable + Valery Veronica-C Unavailable [phone] Brea Quinn ROSTER CLERK PROMOTIONS EXECUTIVE Unavailable [phone] Brea Quinn ROSTER CLERK PROMOTIONS EXECUTIVE Unavailable [phone] Jose Francisco Johnson MD Unavailable Sydnie Martinez RN Unavailable Unavailable Alfonso Renteria MD Unavailable + [phone] Esha Grimm PA-C Primary Care Provider Cheng Todd PA-C Unavailable Radha Lomeli APRN PROMOTIONS EXECUTIVE Unavailable [phone] Jelena David OD Unavailable Pao Joseph RN Unavailable Unavailable Wicho Grimmlincoln Medina PA-C Unavailable [phone] Valery Veronica PA-C Unavailable Rey Tay MD Unavailable Rocky Zepeda DO Unavailable Philip Dumont MD Unavailable Meredith Carrera PA-C Unavailable [phone] Neil Kent MD Unavailable Juan Pablo Emmanuel MD Unavailable [phone] Encounter Details Date Type Department Care Team (Late st Contact Info) Description 07/06/2023 MyC Medical Advice Adam Elliott [facility] Epilepsy Care [address] [facility], [address] [place] [address] Alfonso Renteria MD 5775 [facility] [address] [place] [address] Social History Tobacco Use Types [...] week 03/10/2023 How often do you attend [facility] or latter-day services? 1 to 4 times per year [...] Answer Date Recorded PHQ-2 Score 0 06/20/2023 [facility] [...] exercise at this level? 30 min 03/10/2023 [place] Depression Scale Answer Date Recorded [place] Depression Score 5 01/14/2021 Last EPDS Self [...] in an overnight penitentiary, or couch-surfing.) Yes 06/20/2023 Are you worried about losing [...] Genny Hyman PA-C - 07/07/2023 11:13 AM SET UP MECHANIC AUTOMATIC LINE No lesions/abnormal findings on MRI to account for possible seizure activity. Last office note indicated: If repeat MRI was normal would reduce levetiracetam to 250 mg per day for two weeks and then stop. Ok to proceed with this plan. Call if questions, concerns, or worsening of symptoms with discontinuation of the medication Genny Hyman PA-C UP MECHANIC AUTOMATIC LINE documented in this encounter Plan of Treatment Upcoming Encounters Date Type Department Care Team (Late st Contact Info) Description 01/09/2024 10:15 AM CDT Office Visit [facility] Neurology [facility] - [address], [address] [place] [phone] Genny Hyman PA-C [facility] Epilepsy [address] [place] [address] [place] [address] [place] [address] 02/06/2024 10:00 AM CDT Office Visit [facility] [place] [address] [phone] Neil Kent MD 500 [place] [address] 03/06/2024 3:00 PM CDT Office [facility] Heart [facility] [address] [facility] [address] [place] [address] Radha Lomeli APRN PROMOTIONS EXECUTIVE [address] [place] [address] 03/07/2024 9:00 AM CDT Hospital Encounter [facility] [address] [place] [address] 5th [place] [phone] Rocky Zepeda DO 500 [place], [place] 961425 03/07/2024 9:00 AM CDT - 03/07/2024 9:30 AM CDT Surgery [facility] [address] [place] [address] 5th [place] [phone] Rocky Zepeda DO 500 [place], [place] 896235 Esophagoscopy, gastroscopy, duodenoscopy (EGD), combined Scheduled Procedures Name Priority Associated Diagnoses Date/Ti wa ESOPHAGOGASTRODUODENOSCOPY Eosinophilic esophagitis Esophageal dysphagia 03/07/2024 9:00 [...] documented as of this encounter Care Teams Precision Farming Specialist Relationship Specialty Start Date End Date Esha Grimm PA-C [address] [place] [phone] PCP - General Family Medicine 05/04/23 Diana Desir, [facility] [address] [place] [address] Pharmacist Pharmacist 04/17/21 Rain Galaviz PA-C [address] [place] [address] [address] [facility] [place] [address] Physician Cattle Dehorner Dermatology 04/28/21 Tavia Wyatt MD [address] [place] [address] [address] [facility] [place] [address] Dermatology 07/14/21 Erica Farrell APRN PROMOTIONS EXECUTIVE [address] [facility] [address] [place] [address] Nurse Practitioner Cardiovascular Disease 09/09/21 Rich Barrett MD 516 [facility] 9A [place], [place] 854585 Physician Ophthalmology 01/21/22 Neil Kent MD 500 [place], [place] 577285 Dermatology 02/24/22 Diana Desir, [facility] 3033 [place], [place] 662036 Assigned MTM Pharmacist 04/07/22 Livan Sharif MD [address], [facility] [address] [place], [place] [address] Cardiovascular Disease 05/14/22 Catherine Cm MD [address] [facility] [address] [place], [place] 505625 Cardiovascular Disease 07/21/22 Valery Veronica, PAUcheC [address] [place] [address] 462225 Physician Cattle Dehorner Dermatology 07/21/22 Brea Quinn APRN PROMOTIONS EXECUTIVE [address] [place] [address] 231975 Nurse Practitioner Dermatology 09/21/22 Brea Quinn APRN PROMOTIONS EXECUTIVE [address] [place] [address] 465732 Assigned Surgical Provider 10/09/22 [place] [address] [address] [facility] 300 [place] [address] Assigned Musculoskeletal Provider 10/09/22 Sydine Martinez RN Personal Advocate & Liaison (PAL) Family Medicine 03/28/23 07/31/23 Alfonso Renteria MD 5775 [facility] 200 [place], [place] 487526 Assigned Neuroscience Provider 04/02/23 Cheng Todd PA-C [address] [place] [address] [id number] Assigned PCP 04/30/23 07/15/23 Radha Lomeli APRN PROMOTIONS EXECUTIVE [address] [facility] [address] [place] [address] Assigned Heart and Vascular Provider 05/28/23 [place] [address] [place] [address] MD Ophthalmology 06/15/23 Pao Joseph, VJ Personal Advocate & Liaison (PAL) Nurse 08/01/23 11/07/23 Esha Grimm PA-C [address] [place] [address] Assigned PCP 07/16/23 Valery Veronica PA-C [address] [place] [address] Physician Cattle Dehorner Dermatology 09/19/23 Rey Tay MD [address] [place] [address] Gastroenterology 09/20/23 Rocky Zepeda DO [address] [place] [address] 305595 Physician Gastroenterology 09/20/23 Philip Dumont MD [address] [place] [address] 177255 Physician Ophthalmology 09/22/23 Meredith Carrera PA-C 909 [place], [place] 347725 Assigned Gastroenterology Provider 11/01/23 Neil Kent MD [address] [place] [address] 551170 Dermatology 11/02/23 [place] [address] [place] [address] Neurological Surgery 12/26/23 documented as of this encounter
--- OUTSIDE RECORDS SUMMARY | 2024-01-07 18:11 | XMS_ITS | Encounter Summary ---
Author Organization [facility] Address [address] [place] [address] Care Team Providers Care Manager Balance Name Role Phone Thang Diana [place] [facility] Unavailable Rain Galaviz PA-C Unavailable Tavia Wyatt MD Unavailable Unavailable Erica Farrell APRN DEPUTY SHERIFF CUSTODY Unavailable Rich Barrett MD Unavailable Neil Kent MD Unavailable Diana Desir Stanislav [facility] Unavailable [phone] Livan Sharif MD Unavailable Catherine Cm MD Unavailable + Valery Veronica PA-C Unavailable [phone] Brea Quinn DISTRICT CAPTAIN DEPUTY SHERIFF CUSTODY Unavailable Brea Quinn DISTRICT CAPTAIN DEPUTY SHERIFF CUSTODY Unavailable Jose Francisco Johnson MD Unavailable Alfonso Renteria MD Unavailable + [phone] Esha Grimm PA-C Primary Care Provider Radha Lomeli DISTRICT CAPTAIN DEPUTY SHERIFF CUSTODY Unavailable [phone] Jelena David OD Unavailable [phone] Pao Joseph RN Unavailable Unavailable Esha Grimm Adam PA-C Unavailable [phone] Valery Veronica PA-C Unavailable [phone] Rey Tay MD Unavailable Rocky Zepeda DO Unavailable Philip Dumont MD Unavailable [phone] Meredith Carrera PA-C Unavailable [phone] Neil Kent MD Unavailable Juan Pablo Emmanuel MD Unavailable [phone] Encounter Details Date Type Department Care Team (Late st Contact Info) Description 08/25/2023 MyC Medical Advice [facility] Gastroenterology Clinic [address]th [place] [address] Marija Polanco, VJ Social History [...] Answer Date Recorded PHQ-2 Score 0 06/20/2023 [facility] - Occupational Stress Questionnaire Answer Date [...] exercise at this level? 30 min 03/10/2023 [place] Depression Scale Answer Date Recorded [place] Depression Score 5 01/14/2021 Last EPDS Self [...] 01/09/2024 10:15 AM CDT Office Visit [facility] Neurology [address], [address] [place] [phone] Genny Hyman PAUcheC [facility] Epilepsy [facility] 5775 [facility] 255 [place], [place] 617626 [place] [address] [facility] 300 [place], [place] 6[address]37 02/06/2024 10:00 AM CDT Office Visit [facility] [address] [phone] Neil Kent MD 500 [place], [place] 737915 03/06/2024 3:00 PM CDT Office Visit [facility] Heart [facility] [address] [facility] [address] [place] [phone] Radha Lomeli APRN DEPUTY SHERIFF CUSTODY [address] [place] [address] 03/07/2024 9:00 AM CDT Hospital Encounter [facility] [place] 909 [facility] 5th [place] [phone] Rocky Zepeda, DO 500 [place], [place] 809425 03/07/2024 9:00 AM CDT - 03/07/2024 9:30 AM CDT Surgery [facility] 909 [facility] 5th [place] [phone] Rocky Zepeda, DO 500 [place], [place] 381135 Esophagoscopy, gastroscopy, duodenoscopy (EGD), combined Scheduled Procedures [...] Total Score: 4 06/20/20 23 8:40 AM SR. LOGISTICS ANALYST documented as of this encounter Care Teams Manager Balance Relationship Specialty Start Date End Date Esha Grimm PA-C [address] [place] [address] PCP - General Family Medicine 05/04/23 Diana Desir [facility] [address] [place] [address] Pharmacist Pharmacist 04/17/21 Rain Galaviz PA-C [address] [place] [address] [address] [place] [address] Physician Regulatory Affairs Consultant Dermatology 04/28/21 Tavia Wyatt MD [address] [place] [address] [address] [place] [address] Dermatology 07/14/21 Erica Farrell APRN DEPUTY SHERIFF CUSTODY [address] [place], [place] 474585 Nurse Practitioner Cardiovascular Disease 09/09/21 Rich Barrett MD [address] [place] [address] 013305 Physician Ophthalmology 01/21/22 Neil Kent MD [address] [place] [address] 257315 Dermatology 02/24/22 [facility] [address] [place] [address] 976966 Assigned [place] Pharmacist 04/07/22 Livan Sharif MD [address], [facility]00 [place] 513975 Cardiovascular Disease 05/14/22 Catherine Cm MD [address] [facility] [place] 759155 Cardiovascular Disease 07/21/22 Valery Veronica PA-C [address] [place] [address] Physician Regulatory Affairs Consultant Dermatology 07/21/22 Brea Quinn APRN DEPUTY SHERIFF CUSTODY 500 [place] [address] Nurse Practitioner Dermatology 09/21/22 Brea Quinn APRN DEPUTY SHERIFF CUSTODY 6401 [place] [address] Assigned Surgical Provider 10/09/22 [place] [address] [place] [facility] 300 [place] [address] Assigned Musculoskeletal Provider 10/09/22 Alfonso Renteria MD 5775 [facility] 200 [place] [address] Assigned Neuroscience Provider 04/02/23 Radha Lomeli APRN DEPUTY SHERIFF CUSTODY [address] [place] 1927800 [place] [address] Assigned Heart and Vascular Provider 05/28/23 Jelena David OD [address] [facility] [place] [address] Ophthalmology 06/15/23 Pao Joseph, VJ Personal Advocate & Liaison (PAL) Nurse 08/01/23 11/07/23 Esha Grimm PA-C [address] [place] [address] Assigned PCP 07/16/23 Valery Veronica PA-C [address] [place] [address] Physician Regulatory Affairs Consultant Dermatology 09/19/23 Rey Tay MD [address] [place] [address] MD Gastroenterology 09/20/23 Rocky Zepeda DO [address] [place] [address] Physician Gastroenterology 09/20/23 Philip Dumont MD [address] [place] [address] Physician Ophthalmology 09/22/23 Meredith Carrera, PA-C [address] [place] [address] Assigned Gastroenterology Provider 11/01/23 Neil Kent MD [address] [place] [address] Dermatology 11/02/23 [place] [address] [place], [place] 359407 Neurological Surgery 12/26/23 documented as of this encounter
--- OUTSIDE RECORDS SUMMARY | 2024-01-07 18:11 | XMS_ITS | Encounter Summary ---
Author Organization [facility] Address [address] [place] [address] Care Team Providers Care Compugraph Operator Name Role Phone Thang Diana [place] [facility] Unavailable Rain Galaviz-C Unavailable Tavia Wyatt MD Unavailable Unavailable Erica Farrell APRN COMPRESS TRUCKER Unavailable Rich Barrett MD Unavailable Neil Kent MD Unavailable Diana Desir [facility] Unavailable [phone] Livan Sharif MD Unavailable Catherine Cm MD Unavailable + Valery Veronica-C Unavailable [phone] Brea Quinn CLEANER FURNITURE COMPRESS TRUCKER Unavailable [phone] Brea Quinn CLEANER FURNITURE COMPRESS TRUCKER Unavailable Jose Francisco Johnson MD Unavailable Sydnie Martinez RN Unavailable Unavailable Alfonso Renteria MD Unavailable + [phone] Esha Grimm PA-C Primary Care Provider Cheng ToddC Unavailable Radha Lomeli APRN COMPRESS TRUCKER Unavailable [phone] Jelena David OD Unavailable Pao Joseph RN Unavailable Unavailable Esha Grimm PA-C Unavailable [phone] Valery Veronica PAUcheC Unavailable [phone] Rey Tay MD Unavailable Rocky Zepeda DO Unavailable Philip Dumont MD Unavailable [phone] Meredith CarreraC Unavailable [phone] Neil Kent MD Unavailable Juan Pablo Emmanuel MD Unavailable [phone] Encounter Details Date Type Department Care Team (Late st Contact Info) Description 07/06/2023 MyC Medical Advice [facility] [address] [place] [address] Esha Grimm PA-C [id number] [place] [address] Social History Tobacco Use Types Packs/Day [...] Answer Date Recorded PHQ-2 Score 0 06/20/2023 [facility] - Occupational Stress Questionnaire Answer Date Recorded [...] exercise at this level? 30 min 03/10/2023 [place] Depression Scale Answer Date Recorded [place] Depression Score 5 01/14/2021 Last EPDS Self [...] in an overnight half-way, or couch-surfing.) Yes 06/20/2023 Are you worried [...] Description 01/09/2024 10:15 AM CDT Office Visit [facility] Neurology [address], [address] [place] [address] Genny Hyman PAUcheC [facility] Epilepsy Care 5775 [facility] 255 [place], [place] 748506 [place] [address] [address] [place], [place] 07[address] 02/06/2024 10:00 AM CDT Office Visit [facility] [address] [address] Neil Kent MD 500 [place] [address] 03/06/2024 3:00 PM CDT Office Visit [facility] Heart [facility] [address] [facility] [address] [place] [phone] Radha Lomeli, CLEANER FURNITURE COMPRESS TRUCKER [address] [place] [address] 03/07/2024 9:00 AM CDT Hospital Encounter [facility] [address] [place] [address] 5th [place] [phone] Rocky Zepeda DO 500 [place], [place] 9[address]75 03/07/2024 9:00 AM CDT - 03/07/2024 9:30 AM CDT Surgery [address] 5th [place] [phone] Rocky Zepeda DO 500 [place], [place] 285085 Esophagoscopy, gastroscopy, duodenoscopy (EGD), combined Scheduled Procedures [...] Total Score: 4 06/20/20 23 8: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 documented as of this encounter Care Teams Compugraph Operator Relationship Specialty Start Date End Date Esha Grimm PA-C [address] [place] [address] PCP - General Family Medicine 05/04/23 [facility] [address] [place] [address] Pharmacist Pharmacist 04/17/21 Rain Galaviz PA-C [address] [place] [address] [address] [place] [address] Physician Sawdust Machine Operator Dermatology 04/28/21 Tavia Wyatt MD [address] [place] [address] [address] [place] [address] Dermatology 07/14/21 Erica Farrell APRN COMPRESS TRUCKER [address] [place] 047725 Nurse Practitioner Cardiovascular Disease 09/09/21 Rich Barrett MD [address] [place] [address] 9A [place], [place] 782635 Physician Ophthalmology 01/21/22 Neil Kent MD [address] [place] [address] 084025 Dermatology 02/24/22 [facility] 3033 [place] [address] Assigned MTM Pharmacist 04/07/22 Livan Sharif MD [address] [place] 929475 Cardiovascular Disease 05/14/22 Catherine Cm MD [address] [place] [address] Cardiovascular Disease 07/21/22 Valery Veronica PA-C 909 [place] [address] Physician Sawdust Machine Operator Dermatology 07/21/22 Brea Quinn APRN COMPRESS TRUCKER 500 [place] [address] Nurse Practitioner Dermatology 09/21/22 Brea Quinn APRN COMPRESS TRUCKER 6401 [place] [address] Assigned Surgical Provider 10/09/22 [place] [address] [facility] 300 [place] [address] Assigned Musculoskeletal Provider 10/09/22 Sydnie Martinez RN Personal Advocate & Liaison (PAL) Family Medicine 03/28/23 07/31/23 Alfonso Renteria MD 5775 [facility] 200 [place] [address] Assigned Neuroscience Provider 04/02/23 Cheng Todd PA-C [address] [place] [address] [id number] Assigned PCP 04/30/23 07/15/23 Radha Lomeli APRN COMPRESS TRUCKER 6405 [facility] [address] [place] [address] Assigned Heart and Vascular Provider 05/28/23 Jelena David OD [address] [facility] [place] [address] Ophthalmology 06/15/23 Pao Joseph, RN Personal Advocate & Liaison (PAL) Nurse 08/01/23 11/07/23 Esha Grimm PA-C [address] [place] [phone] Assigned PCP 07/16/23 Valery Veronica PA-C [address] [place] [address] 541555 Physician Sawdust Machine Operator Dermatology 09/19/23 Rey Tay MD [address] [place] [address] 967715 MD Gastroenterology 09/20/23 Rocky Zepeda DO [address] [place] [address] 921525 Physician Gastroenterology 09/20/23 Philip Dumont MD [address] [place] [address] 743835 Physician Ophthalmology 09/22/23 Meredith Carrera PA-C [address] [place] [address] 820765 Assigned Gastroenterology Provider 11/01/23 Neil Kent MD [address] [address] Dermatology 11/02/23 [place] [address] [place], [place] [address] Neurological Surgery 12/26/23 documented as of this encounter
--- OUTSIDE RECORDS SUMMARY | 2024-01-07 18:11 | XMS_ITS | Encounter Summary ---
Author Organization [facility] Address [address] [place] [address] Care Team Providers Care Sow Manager Name Role Phone Thang Diana [place] [facility] Unavailable Rain Galaviz PA-C Unavailable [phone] Tavia Wyatt MD Unavailable Unavailable Erica Farrell APRN TURPENTINER Unavailable Rich Barrett MD Unavailable Neil Kent MD Unavailable Diana Desir Stanislav [facility] Unavailable [phone] Livan Sharif MD Unavailable Catherine Cm MD Unavailable + Valery Veronica PA-C Unavailable [phone] Brea Quinn MANAGER SPA TURPENTINER Unavailable Brea Quinn MANAGER SPA TURPENTINER Unavailable Jose Francisco Johnson MD Unavailable Alfonso Renteria MD Unavailable + [phone] Esha Grimm PA-C Primary Care Provider [phone] Radha Lomeli MANAGER SPA TURPENTINER Unavailable [phone] Jelena David OD Unavailable Pao Joseph RN Unavailable Unavailable Esha Grimm Adam PA-C Unavailable [phone] Valery Veronica PA-C Unavailable [phone] Rey Tay MD Unavailable Rocky Zepeda DO Unavailable Philip Dumont MD Unavailable [phone] Meredith Carrera PA-C Unavailable [phone] Neil Kent MD Unavailable Juan Pablo Emmanuel MD Unavailable [phone] Encounter Details Date Type Department Care Team (Late st Contact Info) Description 08/11/2023 MyC Medical Advice [address] [address] Pao Joseph, RN Social History [...] Answer Date Recorded PHQ-2 Score 0 06/20/2023 [facility] - Occupational Stress Questionnaire Answer Date [...] exercise at this level? 30 min 03/10/2023 Orefield Depression Scale Answer Date Recorded Orefield Depression Score 5 01/14/2021 Last EPDS Self [...] Description 01/09/2024 10:15 AM CDT Office Visit [facility] Neurology [facility] [address] [place] [address], [address] [place] [phone] Genny Hyman PA-C [facility] Epilepsy [facility] 5775 [facility] 255 [place], [place] [address] [place] [address] [facility] 300 [place], [place] [address] 02/06/2024 10:00 AM CDT Office Visit [facility] [address] [phone] Neil Kent MD 500 [place], [place] [address] 03/06/2024 3:00 PM CDT Office Visit [facility] Heart [facility] [address] [facility] [address] [place] [phone] Radha Lomeli, MANAGER SPA TURPENTINER 4962 [facility] [address] [place] [address] 03/07/2024 9:00 AM CDT Hospital Encounter [facility] [place] 909 [facility] 5th [place] [phone] Rocky Zepeda, DO 500 [place], [place] [address] 03/07/2024 9:00 AM CDT - 03/07/2024 9:[address] [facility] [place] 9[address] [facility] 5th [place] [phone] Rocky Zepeda, DO 500 [place], [place] 5610[address] Esophagoscopy, gastroscopy, duodenoscopy (EGD), combined Scheduled Procedures Name Priority Associated Diagnoses Date/Ti ca ESOPHAGOGASTRODUODENOSCOPY Eosinophilic esophagitis Esophageal dysphagia 03/07/2024 9:00 AM CDT documented as of this encounter Visit Diagnoses Not on filedocumented in this encounter Additional Health Concerns Infection Onset Date Last Indicated Resolved Time Rule Out COVID-19 12/26/2023 12/26/2023 12/26/2023 9:50 AM CDT Assessment Noted Time PHQ-9 Depression Total Score: 4 06/20/20 23 8:40 AM COMMERCIAL PILOT documented as of this encounter Care Teams Sow Manager Relationship Specialty Start Date End Date Esha Grimm PA-C [address] [place] [address] PCP - General Family Medicine 05/04/23 Diana Desir [facility] 3033 [place] [address] Pharmacist Pharmacist 04/17/21 Rain Galaviz PA-C [address] [place] [address] [address] [place] [address] Physician Boiler Tube Reamer Dermatology 04/28/21 Tavia Wyatt MD [address] [place] [address] [address] [place] [address] Dermatology 07/14/21 Erica Farrell APRN TURPENTINER [address] [place], [place] 9[address] Nurse Practitioner Cardiovascular Disease 09/09/21 Rich Barrett MD [address] [place] [address] 545765 Physician Ophthalmology 01/21/22 Neil Kent MD [address] [place] [address] 926415 MD Dermatology 02/24/22 [facility] [address] [place] [address] Assigned [place] Pharmacist 04/07/22 Livan Sharif MD [address], [facility] [place] [address] Cardiovascular Disease 05/14/22 Catherine Cm MD [address] [facility] [place] [address] Cardiovascular Disease 07/21/22 Valery Veronica PA-C [address] [place] [address] Physician Boiler Tube Reamer Dermatology 07/21/22 Brea Quinn APRN TURPENTINER 500 [place] [address] Nurse Practitioner Dermatology 09/21/22 Brea Quinn APRN TURPENTINER 6401 [place] [address] Assigned Surgical Provider 10/09/22 [place] [address] [address] Assigned Musculoskeletal Provider 10/09/22 Alfonso Renteria MD 5775 [facility] 200 [place], [place] [address] Assigned Neuroscience Provider 04/02/23 Radha Lomeli APRN TURPENTINER [address] 97[address]200 [place] [address] Assigned Heart and Vascular Provider 05/28/23 Jelena David [address] [facility] [place] [address] Ophthalmology 06/15/23 Pao Joseph, VJ Personal Advocate & Liaison (PAL) Nurse 08/01/23 11/07/23 Esha Grimm PA-C [address] [place] [phone] Assigned PCP 07/16/23 Valery Veronica PA-C [address] [place] [address] Physician Boiler Tube Reamer Dermatology 09/19/23 Rey Tay MD [address] [place] [address] MD Gastroenterology 09/20/23 Rocky Zepeda DO [address] [place] [address] Physician Gastroenterology 09/20/23 Philip Dumont MD [address] [place] [address] Physician Ophthalmology 09/22/23 Meredith Carrera, CARI-C [address] [place] [address] Assigned Gastroenterology Provider 11/01/23 Neil Kent MD [address] [place] [address] 955790 Dermatology 11/02/23 [place] [address] [place], [place] 593637 Neurological Surgery 12/26/23 documented as of this encounter
--- OUTSIDE RECORDS SUMMARY | 2024-01-07 18:11 | XMS_ITS | Encounter Summary ---
Author Organization [facility] Address [address] [place] [address] Care Team Providers Care Cheese Factory Worker Name Role Phone Thang Diana [place] [facility] Unavailable [phone] Rain Galaviz PA-C Unavailable Tavia Wyatt MD Unavailable Unavailable Erica Farrell APRN E BUSINESS CONSULTANT Unavailable Rich Barrett MD Unavailable Neil Kent MD Unavailable Diana Desir Stanislav [facility] Unavailable [phone] Livan Sharif MD Unavailable Catherine Cm MD Unavailable + Valery Veronica PA-C Unavailable [phone] Brea Quinn CLINICAL SUPPORT TECH E BUSINESS CONSULTANT Unavailable Brea Quinn CLINICAL SUPPORT TECH E BUSINESS CONSULTANT Unavailable Jose Francisco Johnson MD Unavailable Alfonso Renteria MD Unavailable + [phone] Esha Grimm PA-C Primary Care Provider Radha Lomeli CLINICAL SUPPORT TECH E BUSINESS CONSULTANT Unavailable [phone] Jelena David OD Unavailable Pao Joseph RN Unavailable Unavailable Esha GrimmC Unavailable [phone] Valery Veronica PA-C Unavailable [phone] Rey Tay MD Unavailable Rocky Zepeda DO Unavailable Philip Dumont MD Unavailable [phone] Meredith CarreraC Unavailable [phone] Neil Kent MD Unavailable Juan Pablo Emmanuel MD Unavailable [phone] Reason for Visit * Reason Onset Date Comments Outreach 08/01/2023 Encounter Details Date Type Department Care Team (Late st Contact Info) Description 08/01/2023 MyC Medical Advice [facility] [address] [place] [address] Esha Grimm PA-C [id number] [place] [address] Outreach Social History Tobacco Use Types [...] Answer Date Recorded PHQ-2 Score 0 06/20/2023 [facility]at [facility] [...] exercise at this level? 30 min 03/10/2023 Hague Depression Scale Answer Date Recorded Hague Depression Score 5 01/14/2021 Last EPDS Self [...] 08/01/2023 2:31 PM CST Esha Grimm PA-C- ANGEL LUIS. See pt's Mychart messages. Routed to PCP Pao Marcos RN PAL (Patient Advocate Liaison) [facility] COMPOSITOR documented in this encounter Plan of Treatment Upcoming Encounters Date Type Department Care Team (Late st Contact Info) Description 01/09/2024 10:15 AM CDT Office Visit [facility] Neurology Clinics - [address], [address] [place] [address] Genny Hyman PA-C [facility] 5775 [facility] 255 [place], [place] 4676[address] [place] [id number] [place] [address] [address] 300 [place] [address] 02/06/2024 10:00 AM CDT Office Visit [facility] [address] [address] Neil Kent MD 500 [place] [address] 03/06/2024 3:00 PM CDT Office Visit [facility] Heart [facility] [address] [place] [phone] Radha Lomeli APRN E BUSINESS CONSULTANT [address] [place] [address] 03/07/2024 9:00 AM CDT Hospital Encounter [facility] [address] [place] [phone] Rocky Zepeda DO 500 [place], [place] [address] 03/07/2024 9:00 AM CDT - 03/07/2024 9:30 AM CDT Surgery [address] [phone] Rocky Zepeda DO 500 [place] [address] Esophagoscopy, gastroscopy, duodenoscopy (EGD), combined Scheduled Procedures [...] Score: 4 06/20/20 23 8:40 AM HAND COMPOSITOR documented as of this encounter Care Teams Cheese Factory Worker Relationship Specialty Start Date End Date Esha Grimm PA-C [address] [place] [address] PCP - General Family Medicine 05/04/23 Diana Desir, [facility] [address] [place] [address] Pharmacist Pharmacist 04/17/21 Rain Galaviz PA-C [address] [place] [address] [address] [place] [address] Physician Claims Administrator Dermatology 04/28/21 Tavia Wyatt MD [address] [place] [address] [address] [place] [address] Dermatology 07/14/21 Erica Farrell APRN E BUSINESS CONSULTANT [address] 0880700 [place] [address] Nurse Practitioner Cardiovascular Disease 09/09/21 Rich Barrett MD [address] [address] Physician Ophthalmology 01/21/22 Neil Kent MD 500 [place], [place] 7[address]65 Dermatology 02/24/22 Diana Desir, [facility] 303 [place] [address] Assigned MTM Pharmacist 04/07/22 Livan Sharif MD [address] [facility] [address] [place] 5[address] Cardiovascular Disease 05/14/22 Catherine Cm MD [address] [facility]00 [place], [place] 85[address] Cardiovascular Disease 07/21/22 Valery Veronica, PAUcheC [address] [place] [address] 729765 Physician Claims Administrator Dermatology 07/21/22 Brea Quinn APRN E BUSINESS CONSULTANT [address] [place] [address] [phone] Nurse Practitioner Dermatology 09/21/22 Brea Quinn APRN E BUSINESS CONSULTANT 6401 [place], [place] 472302 Assigned Surgical Provider 10/09/22 [place] [address] [place] [address] 0814[address] Assigned Musculoskeletal Provider 10/09/22 Alfonso Renteria MD [address] [id number] Assigned Neuroscience Provider 04/02/23 Radha Lomeli APRN E BUSINESS CONSULTANT [address] [place] [address] Assigned Heart and Vascular Provider 05/28/23 Tommy Davidistine SONJA Garcia [address] [facility] [place] [address] MD Ophthalmology 06/15/23 Pao Joseph, RN Personal Advocate & Liaison (PAL) Nurse 08/01/23 11/07/23 Esha Grimm PA-C [address] [place] [phone] Assigned PCP 07/16/23 Valery Veronica PA-C [address] [place] [address] Physician Claims Administrator Dermatology 09/19/23 Rey Tay MD [address] [place] [address] MD Gastroenterology 09/20/23 Rocky Zepeda DO [address] [place] [address] 910475 Physician Gastroenterology 09/20/23 Philip Dumont MD [address] [place] [address] 493685 Physician Ophthalmology 09/22/23 Meredith Carrera PA-C [address] [place] [address] 263905 Assigned Gastroenterology Provider 11/01/23 Neil Kent MD [address] [address] Dermatology 11/02/23 [place] [address] [place] [address] Neurological Surgery 12/26/23 documented as of this encounter
--- OUTSIDE RECORDS SUMMARY | 2024-01-07 18:11 | XMS_ITS | Encounter Summary ---
Author Organization [facility] Address [address] [place] [address] Care Team Providers Care Pedicurist Name Role Phone Thang Diana [place] [facility] Unavailable [phone] Rain Galaviz PA-C Unavailable Tavia Wyatt MD Unavailable Unavailable Erica Farrell APRN FRONT OFFICE ASSISTANT Unavailable Rich Barrett MD Unavailable Neil Kent MD Unavailable Diana Desir Stanislav [facility] Unavailable [phone] Livan Sharif MD Unavailable Catherine Cm MD Unavailable + Valery Veronica PA-C Unavailable [phone] Brea Quinn GEODETIC SURVEYOR FRONT OFFICE ASSISTANT Unavailable Brea Quinn GEODETIC SURVEYOR FRONT OFFICE ASSISTANT Unavailable Jose Francisco Johnson MD Unavailable Alfonso Renteria MD Unavailable + [phone] Esha Grimm PA-C Primary Care Provider Radha Lomeli GEODETIC SURVEYOR FRONT OFFICE ASSISTANT Unavailable [phone] Jelena David OD Unavailable Pao Joseph RN Unavailable Unavailable Esha Grimm Adam PA-C Unavailable [phone] Valery Veronica PA-C Unavailable [phone] Rey Tay MD Unavailable Rocky Zepeda DO Unavailable Philip Dumont MD Unavailable [phone] Meredith Carrera PA-C Unavailable [phone] Neil Kent MD Unavailable Juan Pablo Emmanuel MD Unavailable [phone] Encounter Details Date Type Department Care Team (Late st Contact Info) Description 08/25/[address] [facility] [address] [place] [address] Marija Polanco, VJ Social History [...] often do you attend chur ch or faith services? 1 to 4 times [...] Answer Date Recorded PHQ-2 Score 0 06/20/2023 [facility] - Occupational Stress Questionnaire Answer Date [...] exercise at this level? 30 min 03/10/2023 Colon Depression Scale Answer Date Recorded Colon Depression Score 5 01/14/2021 Last EPDS Self [...] Visit [facility] Neurology [address], [address] [place] [phone] Genny Hyman PAUcheC [facility] Epilepsy [facility] 5775 [facility] 255 [place], [place] 7[address] [place] [address] [facility] 300 [place], [place] [address] 02/06/2024 10:00 AM CDT Office Visit [facility] [address] [phone] Neil Kent MD 500 [place], [place] 3465[address] 03/06/2024 3:00 PM CDT Office Visit [facility] Heart [facility] [address] [facility] [address] [place] [phone] Radha Lomeli APRN FRONT OFFICE ASSISTANT [address] [place] [address] 03/07/2024 9:00 AM CDT Hospital Encounter [facility] [place] 909 [facility] 5th [place] [phone] Rocky Zepeda, DO 500 [place], [place] [address] 03/07/2024 9:00 AM CDT - 03/07/2024 9:30 AM CDT Surgery [facility] 909 [facility] 5th [place] [phone] Rocky Zepeda, DO 500 [place], [place] [address] Esophagoscopy, gastroscopy, duodenoscopy (EGD), combined Scheduled Procedures Name Priority Associated Diagnoses Date/Ti hi ESOPHAGOGASTRODUODENOSCOPY Eosinophilic esophagitis Esophageal dysphagia 03/07/2024 9:00 AM CDT documented as of this encounter Visit Diagnoses Not on filedocumented in this encounter Additional Health Concerns Infection Onset Date Last Indicated Resolved Time Rule Out COVID-19 12/26/2023 12/26/2023 12/26/2023 9:50 AM CDT Assessment Noted Time PHQ-9 Depression Total Score: 4 06/20/20 23 8:40 AM AWNINGS MECHANIC documented as of this encounter Care Teams Pedicurist Relationship Specialty Start Date End Date Esha Grimm PA-C [address] [place] [phone] PCP - General Family Medicine 05/04/[address] [facility] [address] [place] [address] Pharmacist Pharmacist 04/17/21 Rain Galaviz PA-C [address] [place] [address] [address] [place] [address] Physician Trial Examiner Dermatology 04/28/21 Tavia Wyatt MD [address] [place] [address] [address] [place] [address] Dermatology 07/14/21 Erica Farrell APRN FRONT OFFICE ASSISTANT [address] [place], [place] 9[address] Nurse Practitioner Cardiovascular Disease 09/09/21 Rich Barrett MD [address] [place] [address] 801005 Physician Ophthalmology 01/21/22 Neil Kent MD [address] [place] [address] 043735 Dermatology 02/24/22 [facility] [address] [place] [address] 891606 Assigned [place] Pharmacist 04/07/22 Livan Sharif MD [address], [facility] [place] 4[address] Cardiovascular Disease 05/14/22 Catherine Cm MD [address] [facility] [place] 137[address] Cardiovascular Disease 07/21/22 Valery Veronica PA-C [address] [place] [address] Physician Trial Examiner Dermatology 07/21/22 Brea Quinn APRN FRONT OFFICE ASSISTANT 500 [place] [address] Nurse Practitioner Dermatology 09/21/22 Brea Quinn APRN FRONT OFFICE ASSISTANT 6401 [place] [address] Assigned Surgical Provider 10/09/22 [place] [address] [facility] 300 [place] [address] Assigned Musculoskeletal Provider 10/09/22 Alfonso Renteria MD 5775 [facility] 200 [place] [address] Assigned Neuroscience Provider 04/02/23 Radha Lomeli APRN FRONT OFFICE ASSISTANT [address] [phone] [place] [address] Assigned Heart and Vascular Provider 05/28/23 Jelena David OD [address] [place] [address] Ophthalmology 06/15/23 Pao Joseph, VJ Personal Advocate & Liaison (PAL) Nurse 08/01/23 11/07/23 Esha Grimm PA-C [address] [place] [address] Assigned PCP 07/16/23 Valery Veronica PA-C [address] [place] [address] Physician Trial Examiner Dermatology 09/19/23 Rey Tay MD [address] [place] [address] MD Gastroenterology 09/20/23 Rocky Zepeda DO [address] [place] [address] Physician Gastroenterology 09/20/23 Philip Dumont MD [address] [place] [address] Physician Ophthalmology 09/22/23 Meredith Carrera, PA-C [address] [place] [address] Assigned Gastroenterology Provider 11/01/23 Neil Kent MD [address] [place] [address] Dermatology 11/02/23 [place] [address] [place], [place] 300[address] Neurological Surgery 12/26/23 documented as of this encounter
--- OUTSIDE RECORDS SUMMARY | 2024-01-07 18:12 | XMS_ITS | Encounter Summary ---
Author Organization [facility] Address [address] [place] [address] Care Team Providers Care Emts Name Role Phone Marija Edgar APRN COMPRESSOR ENGINEER Primary Care Provider Marija Emery APRN, CNP Unavailable Unavail able Diana Desir [facility] Unavailable [phone] Rain Galaviz PA-C Unavailable [phone] Tavia Wyatt MD Unavailable Unavailable Erica Farrell APRN COMPRESSOR ENGINEER Unavailable Rich Barrett MD Unavailable [phone] Neil Kent MD Unavailable Diana Desir [facility] Unavailable [phone] Livan Sharif MD Unavailable Catherine Cm MD Unavailable + Valery Veronica PA-C Unavailable [phone] Brea Quinn APRN COMPRESSOR ENGINEER Unavailable [phone] Brea Quinn APRN COMPRESSOR ENGINEER Unavailable [phone] Jose Francisco Johnson MD Unavailable Catherine Cm MD Unavailable + Juan, Sydnie M RN Unavailable Unavailable Alfonso Renteria MD Unavailable [phone] Esha Grimm PA-C Primary Care Provider Cheng Todd PA-C Unavailable Radha Lomeli APRN COMPRESSOR ENGINEER Unavailable Jelena David OD Unavailable Pao Joseph RN Unavailable Unavailable Esha Grimm PA-C Unavailable [phone] Valery Veronica PA-C Unavailable Rey Tay MD Unavailable Rocky Zepeda DO Unavailable Philip Dumont MD Unavailable Meredith Carrera PA-C Unavailable [phone] Neil Kent MD Unavailable Juan Pablo Emmanuel MD Unavailable Encounter Details Date Type Department Care Team (Late st Contact Info) Description 04/12/2023 [facility] [address] [place] [address] [address] [place] [address] Livan Sharif MD [address] [facility] [address] [place] [address] Social History Tobacco Use Types [...] How often do you attend chur or holiness services? 1 to 4 times [...] Answer Date Recorded PHQ-2 Score 0 03/10/2023 [facility] - Occupational Stress Questionnaire Answer [...] in a senior living (including now)? No 03/10/2023 Simpson Depression Scale Answer Date Recorded Simpson Depression Score 5 01/14/2021 Last EPDS Self [...] Thank you. Kim Swann, We are in [place], but asked a tech here to check the photo. He said the spot you chose is OK but he thinks we should have the TURN8s check in with you as you may need to have some extra prep gelif you have have issues with the pads. We are reaching out to that COM DEV team to let them know you are having some issues. Team [address] [place] [address] Sharif [phone] documented in this encounter Plan of Treatment Upcoming Encounters Date Type Department Care Team (Late st Contact Info) Description 01/09/2024 10:15 AM CDT Office Visit [facility] Neurology [address], [address] [place] [address] Genny Hyman PA-C [facility] Epilepsy Care 5793 [facility] [address] 255 [place], [place] [phone] [place] [address] [place], [place] [id number] 02/06/2024 10:00 AM CDT Office Visit [facility] [place] [address] [phone] Neil Kent MD 500 [place] [address] 03/06/2024 3:00 PM CDT Office Visit [facility] [address] [facility] [address] [place] [phone] Radha Lomeli, AUTOMOTIVE MACHINIST APPRENTICE COMPRESSOR ENGINEER [address] [place] [address] 03/07/2024 9:00 AM CDT Hospital Encounter [address] [phone] Rocky Zepeda DO 500 [place] [address] 03/07/2024 9:00 AM CDT - 03/07/2024 9:30 AM CDT Surgery [address] [phone] Rocky Zepeda DO 500 [place] [address] Esophagoscopy, gastroscopy, duodenoscopy (EGD), combined Scheduled Procedures [...] documented as of this encounter Care Teams Emts Relationship Specialty Start Date End Date Marija Edgar APRN COMPRESSOR ENGINEER PCP - General Nurse Practitioner 04/30/20 04/14/23 Esha Grimm PA-C [address] [place] [address] PCP - General Family Medicine 05/04/23 Marija Edgar APRN COMPRESSOR ENGINEER Assigned PCP 06/08/20 04/29/23 Diana Desir, [facility] 30[address] [place], [place] 508196 Pharmacist Pharmacist 04/17/21 Rain Galaviz PA-C [address] [place] [address] [address] [place] [address] Physician Tactical Debriefer Dermatology 04/28/21 Tavia Wyatt MD [address] [place] [address] [address] [place] [address] Dermatology 07/14/21 Erica Farrell APRN COMPRESSOR ENGINEER [address] [facility] [address] [place] [address] Nurse Practitioner Cardiovascular Disease 09/09/21 Rich Barrett MD [address] 942275 Physician Ophthalmology 01/21/22 Neil Kent MD [address] [place] [address] 631705 Dermatology 02/24/22 Diana Desir, [facility] [place] [address] Assigned MTM Pharmacist 04/07/22 Livan Sharif MD [address] [address] Cardiovascular Disease 05/14/22 Catherine Cm MD [address] [place] [address] Cardiovascular Disease 07/21/22 Valery Veronica, PAUcheC [address] [place] [address] Physician Tactical Debriefer Dermatology 07/21/22 Brea Quinn APRN COMPRESSOR ENGINEER [address] [place] [address] Nurse Practitioner Dermatology 09/21/22 Brea Quinn APRN COMPRESSOR ENGINEER [address] [place] [address] Assigned Surgical Provider 10/09/22 [place] [address] [address] Assigned Musculoskeletal Provider 10/09/22 Catherine Cm MD [address] [place] [address] [place] [address] Assigned Heart and Vascular Provider 11/13/22 05/27/23 JuanSydnie RN Personal Advocate & Liaison (PAL) Family Medicine 03/28/23 07/31/23 Alfonso Renteria MD [address] [facility] [address] [place] [address] Assigned Neuroscience Provider 04/02/23 Cheng Todd PA-C [address] [place] [address] Assigned PCP 04/30/23 07/15/23 Radha Lomeli APRN COMPRESSOR ENGINEER [address] [facility] [address] [place], [place] 921615 Assigned Heart and Vascular Provider 05/28/23 Jelena David OD [address] [facility] [address] [place] [id number] Ophthalmology 06/15/23 Pao Joseph, RN Personal Advocate & Liaison (PAL) Nurse 08/01/23 11/07/23 Esha Grimm PA-C [address] [place] [address] Assigned PCP 07/16/23 Valery Veronica PA-C [address] [place] [address] Physician Tactical Debriefer Dermatology 09/19/23 Rey Tay MD [address] [place] [address] 909425 Gastroenterology 09/20/23 Rocky Zepeda DO [address] [place] [address] 873445 Physician Gastroenterology 09/20/23 Philip Dumont MD 516 [place] [address] Physician Ophthalmology 09/22/23 Meredith Carrera PA-C 909 [place], [place] 774025 Assigned Gastroenterology Provider 11/01/23 Neil Kent MD [address] 259580 Dermatology 11/02/23 [place] [address] [place], [place] [address] Neurological Surgery 12/26/23 documented as of this encounter
--- OUTSIDE RECORDS SUMMARY | 2024-01-07 18:12 | XMS_ITS | Encounter Summary ---
Author Organization [facility] Address [address] [place] [address] Care Team Providers Care Retrofit Installer Name Role Phone Lita Oseguera Unavailable Unavailable Marija Edgar APRN, CNP Primary Care Provider U Marija Bella APRN, CNP Unavailable Unavail able Keisha Dotson MD Unavailable [phone] Diana Desir [facility] Unavailable [phone] Rain Galaviz PA-C Unavailable Tavia Wyatt MD Unavailable Unavailable Erica Farrell APRN RESIDENTIAL AIR SEALING TECHNICIAN Unavailable Rich Barrett MD Unavailable [phone] Neil Kent MD Unavailable Diana Desir [facility] Unavailable [phone] Livan Sharif MD Unavailable Catherine Cm MD Unavailable + Valery Veronica PA-C Unavailable [phone] Brea Quinn APRN RESIDENTIAL AIR SEALING TECHNICIAN Unavailable [phone] Brea Quinn APRN RESIDENTIAL AIR SEALING TECHNICIAN Unavailable Jose Francisco Johnson MD Unavailable Catherine Cm MD Unavailable + Sydnie Martinez RN Unavailable Unavailable Alfonso Renteria MD Unavailable [phone] Esha Grimm PA-C Primary Care Provider Perez Chengjc Fish PA-C Unavailable [phone] Armani Radha Sia JACOBS RESIDENTIAL AIR SEALING TECHNICIAN Unavailable Jelena David OD Unavailable Pao Joseph RN Unavailable Unavailable Esha Grimm PA-C Unavailable [phone] Valery Veronica PA-C Unavailable [phone] Rey Tay MD Unavailable Rocky Zepeda DO Unavailable Philip Dumont MD Unavailable Meredith Carrera PA-C Unavailable [phone] Neil Kent MD Unavailable Juan Pablo Emmanuel MD Unavailable [phone] Encounter Details Date Type Department Care Team (Late st Contact Info) Description 01/10/2023 My[facility] Medical Advice [facility] [address] [place] [address] Lauren Claudio PA-C [address] [place], [place] [phone] Social History Tobacco Use Types Packs/Day Years [...] How often do you attend denominational or yazidism serv ices? Never 09/22/2021 Do you belong [...] Answer Date Recorded PHQ-2 Score 1 10/11/2022 [facility] ional Health - Occupational Stress [...] in a usp (including now)? No 09/22/2021 Bridgeport Depression Scale Answer Date Recorded [place] Depression Score 5 01/14/2021 Last EPDS Self [...] Miscellaneous Notes * Telephone Encounter - Julissa Benitez, NATASHA - 02/03/2023 1:33 PM CDT Order faxed to number listed. Julissa Benitez CMA * Telephone Encounter - Lauren Claudio PA-C - 02/03/2023 11:59 AM CDT Please fax the order. * Telephone Encounter - Eirca David MA - 02/03/2023 11:52 AM CDT Incoming call Waste Transportation Technician: Roaslva [place] [facility] referral following up on [facility] med information that is needed to be faxed at [phone] Erica David MA documented in this encounter Plan of Treatment Upcoming Encounters Date Type Department Care Team (Late st Contact Info) Description 01/09/2024 10:15 AM CDT Office Visit [facility] Neurology [facility] - [address], [address] [place] [address] Genny Hyman PA-C [facility] Epilepsy Care 5775 [facility] 255 [place], [place] 444[address] [place] [address] [facility] 300 [place], [place] [address] 02/06/2024 10:00 AM CDT Office Visit [facility] [address] [address] Neil Kent MD 500 [place], [place] 173325 03/06/2024 3:00 PM CDT Office Visit [facility] Heart [facility] [address] [place] [address] [address] [place] [address] Radha Lomeli APRN RESIDENTIAL AIR SEALING TECHNICIAN [address] [place] [address] 03/07/2024 9:00 AM CDT Hospital Encounter [address] 5th [place] [phone] Rocky Zepeda DO 500 [place], [place] 79[address]85 03/07/2024 9:00 AM CDT - 03/07/2024 9:30 AM CDT Surgery [address] [phone] Rocky Zepeda DO 500 [place], [place] 084[address] Esophagoscopy, gastroscopy, duodenoscopy (EGD), combined Scheduled Procedures Name Priority Associated Diagnoses Date/Ti pa ESOPHAGOGASTRODUODENOSCOPY Eosinophilic esophagitis Esophageal dysphagia 03/07/2024 9:00 AM CDT documented as of this encounter Visit Diagnoses Not on filedocumented in this encounter Additional Health Concerns Infection Onset Date Last Indicated Resolved Time Rule Out COVID-19 03/07/2023 03/07/2023 03/07/2023 1:20 PM CDT Rule Out COVID-19 12/26/2023 12/26/2023 12/26/2023 9:50 AM CDT Assessment Noted Time PHQ-9 Depression Total Score: 5 10/11/19 8:58 AM CDT documented as of this encounter Care Teams Retrofit Installer Relationship Specialty Start Date End Date Marija Edgar APRN RESIDENTIAL AIR SEALING TECHNICIAN PCP - General Nurse Practitioner 04/30/20 04/14/23 Esha Grimm PA-C [address] [place] [address] PCP - General Family Medicine 05/04/23 Lita Oseguera Personal Advocate & Liaison (PAL) 02/28/20 03/27/23 Marija Edgar APRN RESIDENTIAL AIR SEALING TECHNICIAN Assigned PCP 06/08/20 04/29/23 Keisha Dotson MD [address]09 [place] [address] Assigned Neuroscience Provider 06/04/20 04/01/23 Diana Desir, [facility] [address] [place] [address] Pharmacist Pharmacist 04/17/21 Rain Galaviz PA-C [address] [place] [address] [address] [place] [address] Physician Tooling Supervisor Dermatology 04/28/21 Tavia Wyatt MD [address] [place] [address] [place] [address] Dermatology 07/14/21 Erica Farrell APRN RESIDENTIAL AIR SEALING TECHNICIAN [address] [place] [address] Nurse Practitioner Cardiovascular Disease 09/09/21 Rich Barrett MD [address] 751465 Physician Ophthalmology 01/21/22 Neil Kent MD 500 [place], [place] 383685 Dermatology 02/24/22 [facility] 3033 [place] [address] Assigned MTM Pharmacist 04/07/22 Livan Sharif MD [address] [place] [address] Cardiovascular Disease 05/14/22 Catherine Cm MD [address] [place] 303695 Cardiovascular Disease 07/21/22 Valery Veronica, PAUcheC [address] [place] [address] Physician Tooling Supervisor Dermatology 07/21/22 Brea Quinn APRN RESIDENTIAL AIR SEALING TECHNICIAN 500 [place], [place] [address]235 Nurse Practitioner Dermatology 09/21/22 Brea Quinn APRN RESIDENTIAL AIR SEALING TECHNICIAN 6401 [place] [address] Assigned Surgical Provider 10/09/22 [place] [address] [place] [address] Assigned Musculoskeletal Provider 10/09/22 Catherine Cm MD [address] [place] [address] Assigned Heart and Vascular Provider 11/13/22 05/27/23 Sydnie Martinez RN Personal Advocate & Liaison (PAL) Family Medicine 03/28/23 07/31/23 Alfonso Renteria MD 5775 [facility] [address] 200 [place] [address] Assigned Neuroscience Provider 04/02/23 Cheng Todd PA-C [address] [place] [address] Assigned PCP 04/30/23 07/15/23 Radha Lomeli APRN RESIDENTIAL AIR SEALING TECHNICIAN 6405 [facility] [address] [place] [address] Assigned Heart and Vascular Provider 05/28/23 Jelena David OD [address] [facility] [place] [address] Ophthalmology 06/15/23 Pao Joseph, VJ Personal Advocate & Liaison (PAL) Nurse 08/01/23 11/07/23 Esha Grimm PA-C [address] [place] [address] Assigned PCP 07/16/23 Valery Veronica PA-C [address] [place] [address]145 Physician Tooling Supervisor Dermatology 09/19/23 Rey Tay MD [address] [place] [address] 850825 Gastroenterology 09/20/23 Rocky Zepeda DO [address] [place] [address] Physician Gastroenterology 09/20/23 Philip Dumont MD 6 [place] [address] Physician Ophthalmology 09/22/23 Meredith Carrera PA-C [address] [place] [address] Assigned Gastroenterology Provider 11/01/23 Neil Kent MD [address] [address] Dermatology 11/02/23 [place] [address] [place] [address] 636337 Neurological Surgery 12/26/23 documented as of this encounter
--- OUTSIDE RECORDS SUMMARY | 2024-01-07 18:12 | XMS_ITS | Encounter Summary ---
Author Organization [facility] Address [address] [place] [address] Care Team Providers Care Organizational Consultant Name Role Phone Thang Diana [place] [facility] Unavailable Rain Galaviz-C Unavailable Tavia Wyatt MD Unavailable Unavailable Erica Farrell APRN TUFTING MACHINE FIXER Unavailable Rich Barrett MD Unavailable Neil Kent MD Unavailable Diana Desir [facility] Unavailable [phone] Livan Sharif MD Unavailable Catherine Cm MD Unavailable + Valery Veronica-C Unavailable [phone] Brea Quinn MARKETING PROGRAM COORDINATOR TUFTING MACHINE FIXER Unavailable Brea Quinn MARKETING PROGRAM COORDINATOR TUFTING MACHINE FIXER Unavailable Jose Francisco Johnson MD Unavailable Sydnie Martinez RN Unavailable Unavailable Alfonso Renteria MD Unavailable + [phone] Esha Grimm PA-C Primary Care Provider Cheng Todd PA-C Unavailable Radha Lomeli APRN TUFTING MACHINE FIXER Unavailable [phone] Jelena David OD Unavailable Pao Joseph RN Unavailable Unavailable Esha Grimm Adam PA-C Unavailable [phone] Valery Veronica PA-C Unavailable [phone] Rey Tay MD Unavailable Rocky Zepeda DO Unavailable Philip Dumont MD Unavailable [phone] Meredith Carrera PA-C Unavailable [phone] Neil Kent MD Unavailable Juan Pablo Emmanuel MD Unavailable [phone] Encounter Details Date Type Department Care Team (Late st Contact Info) Description 06/15/2023 MyC Medical Advice [facility] [address]th [place] [address] Doris Levi Social History Tobacco [...] Answer Date Recorded PHQ-2 Score 1 05/16/2023 [facility] - Occupational Stress Questionnaire Answer [...] exercise at this level? 30 min 03/10/2023 [place] Depression Scale Answer Date Recorded [place] Depression Score 5 01/14/2021 Last EPDS Self [...] in an overnight prison, or couch-surfing.) Yes 04/18/2023 Are you worried about losing [...] AM CDT Office Visit [facility] Neurology [address], [address] [place] [address] Genny Hyman PAUcheC [facility] Epilepsy Care 5775 [facility] 255 [place], [place] 432[address] [place] [address] [place], [place] [address] 02/06/2024 10:00 AM CDT Office Visit [facility] [address] [address] Neil Kent MD 500 [place] [address] 03/06/2024 3:00 PM CDT Office Visit [facility] Heart [facility] [address] [place] [address] Lomeli Radha E, MARKETING PROGRAM COORDINATOR TUFTING MACHINE FIXER [address] [place] [address] 03/07/2024 9:00 AM CDT Hospital Encounter [address] 5th [place] [phone] Rocky Zepeda DO 500 [place] [address] 03/07/2024 9:00 AM CDT - 03/07/2024 9:30 AM CDT Surgery [address] [phone] Rocky Zepeda DO 500 [place] [address] Esophagoscopy, gastroscopy, duodenoscopy (EGD), combined Scheduled Procedures [...] Total Score: 6 05/16/20 23 9:29 AM DIELECTRIC MACHINE OPERATOR documented as of this encounter Care Teams Organizational Consultant Relationship Specialty Start Date End Date Esha Grimm PA-C [address] [place] [address] PCP - General Family Medicine 05/04/23 Diana Desir, [facility] [address] [place] [address] Pharmacist Pharmacist 04/17/21 Rain Galaviz PA-C [address] [place] [address] [address] [place] [address] Physician Senior Engineering Manager Dermatology 04/28/21 Tavia Wyatt MD [address] [place] [place] [address] [address] [place] [address] Dermatology 07/14/21 Erica Farrell APRN TUFTING MACHINE FIXER [address] [place] [address] Nurse Practitioner Cardiovascular Disease 09/09/21 Rich Barrett MD 516 [facility] 9A [place], [place] [address] Physician Ophthalmology 01/21/22 Neil Kent MD 500 [place], [place] 489655 Dermatology 02/24/22 Diana Desir, [facility] [address] [place] [address] Assigned MTM Pharmacist 04/07/22 Livan Sharif MD [address] [place] 419735 Cardiovascular Disease 05/14/22 Catherine Cm MD [address] [facility] [address] [facility] [address] [place] [address] Cardiovascular Disease 07/21/22 Valery Veronica PA-C 909 [place] [address] Physician Senior Engineering Manager Dermatology 07/21/22 Brea Quinn APRN TUFTING MACHINE FIXER [address] [place] [address] Nurse Practitioner Dermatology 09/21/22 Brea Quinn APRN TUFTING MACHINE FIXER 6401 [place] [address] Assigned Surgical Provider 10/09/22 [place] [address] 300 [place] [address] Assigned Musculoskeletal Provider 10/09/22 Sydnie Martinez RN Personal Advocate & Liaison (PAL) Family Medicine 03/28/23 07/31/23 Alfonso Renteria MD 5775 [facility] 200 [place], [place] 97[address] Assigned Neuroscience Provider 04/02/23 Cheng Todd PA-C [address] [place] [address] [phone] Assigned PCP 04/30/23 07/15/23 Radha Lomeli APRN TUFTING MACHINE FIXER 6405 [facility] [address] [place] [address] Assigned Heart and Vascular Provider 05/28/23 Jelena David OD [address] [place] [address] MD Ophthalmology 06/15/23 Pao Joseph, RN Personal Advocate & Liaison (PAL) Nurse 08/01/23 11/07/23 Esha Grimm PA-C [address] [place] [address] Assigned PCP 07/16/23 Valery Veronica PA-C [address] [place] [address] Physician Senior Engineering Manager Dermatology 09/19/23 Rey Tay MD [address] [place] [address] Gastroenterology 09/20/23 Rocky Zepeda DO [address] [place] [place] [address] 438825 Physician Gastroenterology 09/20/23 Philip Dumont MD [address] [place] [address] 688395 Physician Ophthalmology 09/22/23 Meredith Carrera PA-C [address] [place] [address] 377225 Assigned Gastroenterology Provider 11/01/23 Neil Kent MD [address] 690470 Dermatology 11/02/23 [place] [address] [place] [address] Neurological Surgery 12/26/23 documented as of this encounter
--- OUTSIDE RECORDS SUMMARY | 2024-01-07 18:12 | XMS_ITS | Encounter Summary ---
Author Organization [facility] Address [address] [place] [address] Care Team Providers Care Sales Representative Jewelry Name Role Phone Thang Diana [place] [facility] Unavailable [phone] Rain Galaviz-C Unavailable [phone] Tavia Wyatt MD Unavailable Unavailable Erica Farrell APRN KILN TESTER Unavailable Rich Barrett MD Unavailable Neil Kent MD Unavailable Diana Desir [facility] Unavailable [phone] Livan Sharif MD Unavailable Catherine Cm MD Unavailable + Valery Veronica-C Unavailable [phone] Brea Quinn INTEGRATED MARKETING INTERN KILN TESTER Unavailable [phone] Brea Quinn INTEGRATED MARKETING INTERN KILN TESTER Unavailable [phone] Jose Francisco Johnson MD Unavailable Sydnie Martinez RN Unavailable Unavailable Alfonso Renteria MD Unavailable + [phone] Esha Grimm PA-C Primary Care Provider Cheng ToddC Unavailable Radha Lomeli APRN KILN TESTER Unavailable [phone] Jelena David OD Unavailable Pao Joseph RN Unavailable Unavailable Esha Grimm PA-C Unavailable [phone] Valery VeronicaC Unavailable [phone] Rey Tay MD Unavailable Rocky Zepeda DO Unavailable Philip Dumont MD Unavailable [phone] Meredith CarreraC Unavailable [phone] Neil Kent MD Unavailable Juan Pablo Emmanuel MD Unavailable [phone] Reason for Visit * Reason Onset Date Comments Appointment 06/17/2023 Encounter Details Date Type Department Care Team (Late st Contact Info) Description 06/17/2023 Telephone [facility] [address] [place] [phone] Esha Grimm PA-C [id number] [place] [phone] Appointment Social History Tobacco Use Types [...] How often do you attend [facility] or episcopalian services? 1 to 4 times [...] exercise at this level? 30 min 03/10/2023 [place] Depression Scale Answer Date Recorded [place] Depression Score 5 01/14/2021 Last EPDS Self [...] in an overnight custodial, or couch-surfing.) Yes 06/20/2023 Are you worried [...] they are all full today Lulu Day/ Intelligence Analyst ON CLEANER * Telephone Encounter - Rosio Eller - 06/17/2023 7:13 AM CST Reason for Call: Appointment Request Patient requesting this type of appt: follow-up breast pain Requested provider: any Reason patient unable to be scheduled: Not within requested timeframe When does patient want to be seen/preferred time: today or Tuesday Comments: patient wondering if she could be worked in f Could we send this information to you in [facility] or would you prefer to receive a phone call?: Patient would prefer a phone call Okay to leave a detailed message?: Yes at Home number on file [phone] (home) Call taken on 06/17/2023 at 7:13 AM by Rosio Eller ON CLEANER documented in this encounter Plan of Treatment Upcoming Encounters Date Type Department Care Team (Late st Contact Info) Description 01/09/2024 10:15 AM CDT Office [facility] Neurology [facility] [address] [facility], [address] [place] [phone] Genny Hyman PA-C [facility] Epilepsy Care [address] [facility] K[address] [place], [place] [address] [place] [address] [address] [place], [place] [address] 02/06/2024 10:00 AM CDT Office Visit [facility] [address] [phone] Neil Kent MD 500 [place], [place] [address] 03/06/2024 3:00 PM CDT Office [facility] Heart [facility] [address] [facility] [address] [place] [phone] Radha Lomeli, INTEGRATED MARKETING INTERN KILN TESTER [address] [place], [place] [address] 03/07/2024 9:00 AM CDT Hospital Encounter [facility] [address] [facility] [address] 5th [place] [phone] Rocky Zepeda DO 500 [place], [place] 3[address] 03/07/2024 9:00 AM CDT - 03/07/2024 9:30 AM CDT Surgery [facility] [address] [facility] [address] 5th [place] [phone] Rocky Zepeda DO 500 [place] [address] Esophagoscopy, gastroscopy, duodenoscopy (EGD), combined Scheduled Procedures [...] Depression Total Score: 6 05/16/20 9:29 AM CARBON CLEANER documented as of this encounter Care Teams Sales Representative Jewelry Relationship Specialty Start Date End Date Esha Grimm PA-C [address] [place] [address] PCP - General Family Medicine 05/04/23 Diana Desir, [facility] 3033 [place] [address] Pharmacist Pharmacist 04/17/21 Rain Galaviz PA-C [address] [place] [address] [place] [address] Physician Multifocal Button Generator Dermatology 04/28/21 Tavia Wyatt MD [address] [place] [address] [place] [address] Dermatology 07/14/21 Erica Farrell APRN KILN TESTER [address] [place] 2684200 [place] 637475 Nurse Practitioner Cardiovascular Disease 09/09/21 Rich Barrett MD 516 [facility] 9A [place], [place] 29[address] Physician Ophthalmology 01/21/22 Neil Kent MD 500 [place], [place] 7[address]85 Dermatology 02/24/22 Diana Desir, [facility] [address] [place], [place] 0325[address] Assigned [place] Pharmacist 04/07/22 Livan Sharif MD [address] [facility]00 [place], [place] 3284[address] Cardiovascular Disease 05/14/22 Catherine Cm MD 6405 [facility] Sylvia [address] 0622[address] Cardiovascular Disease 07/21/22 Valery Veronica, PA-C [address] [place] [address] 600385 Physician Multifocal Button Generator Dermatology 07/21/22 Brea Quinn APRN KILN TESTER 500 [place], [place] 0200[address] Nurse Practitioner Dermatology 09/21/22 Brea Quinn APRN KILN TESTER [address] [facility] [place] 759032 Assigned Surgical Provider 10/09/22 [place] [address] [address] [facility] 300 [place] [address] Assigned Musculoskeletal Provider 10/09/22 Sydnie Martinez RN Personal Advocate & Liaison (PAL) Family Medicine 03/28/23 07/31/23 Alfonso Renteria MD 5775 [facility] 200 [place] [address] Assigned Neuroscience Provider 04/02/23 Cheng Todd PA-C [address] [place] [address] [id number] Assigned PCP 04/30/23 07/15/23 Radha Lomeli APRN KILN TESTER [address] [facility] [address] [place] [address] Assigned Heart and Vascular Provider 05/28/23 Jelena David OD [address] [facility] [place] [address] Ophthalmology 06/15/23 Pao Joseph, VJ Personal Advocate & Liaison (PAL) Nurse 08/01/23 11/07/23 Esha Grimm PA-C [address] [place] [phone] Assigned PCP 07/16/23 Valery Veronica PA-C 909 [place], [place] 558[address] Physician Multifocal Button Generator Dermatology 09/19/23 Rey Tay MD [address] [place] [address] Gastroenterology 09/20/23 Rocky Zepeda DO [address] [place] [address] Physician Gastroenterology 09/20/23 Philip Dumont MD [address] [place] [address] Physician Ophthalmology 09/22/23 Meredith Carrera PAUcheC [address] [place] [address] Assigned Gastroenterology Provider 11/01/23 Neil Kent MD [address] [address] Dermatology 11/02/23 [place] [address] [address] Neurological Surgery 12/26/23 documented as of this encounter
--- OUTSIDE RECORDS SUMMARY | 2024-01-07 18:12 | XMS_ITS | Encounter Summary ---
Author Organization [facility] Address [address] [place] [address] Care Team Providers Care Collator Operator Name Role Phone Lita Oseguera Unavailable Unavailable Marija Edgar APRN, CNP Primary Care Provider U Marija Bella APRN, CNP Unavailable Unavail able Keisha Dotson MD Unavailable [phone] Diana Desir [facility] Unavailable [phone] Rain Galaviz PA-C Unavailable Tavia Wyatt MD Unavailable Unavailable Erica Farrell APRN CONTRACTING OFFICER Unavailable Rich Barrett MD Unavailable [phone] Neil Kent MD Unavailable Diana Desir [facility] Unavailable [phone] Livan Sharif MD Unavailable Catherine Cm MD Unavailable + Valery Veronica PA-C Unavailable [phone] Brea Quinn APRN CONTRACTING OFFICER Unavailable [phone] Brea Quinn APRN CONTRACTING OFFICER Unavailable Jose Francisco Johnson MD Unavailable Catherine Cm MD Unavailable + Sydnie Martinez RN Unavailable Unavailable Alfonso Renteria MD Unavailable [phone] Esha Grimm PA-C Primary Care Provider Perez Chengjc Fish PA-C Unavailable [phone] Armani Radha Sia JACOBS CONTRACTING OFFICER Unavailable Jelena David OD Unavailable [phone] Pao Joseph RN Unavailable Unavailable Esha Grimm PA-C Unavailable [phone] Valery Veronica PA-C Unavailable Rey Tay MD Unavailable Rocky Zepeda DO Unavailable Philip Dumont MD Unavailable [phone] Meredith Carrera PA-C Unavailable Neil Kent MD Unavailable Juan Pablo Emmanuel MD Unavailable [phone] Encounter Details Date Type Department Care Team (Late st Contact Info) Description 12/23/2022 MyC Medical Advice [facility] [address] [place] [phone] Lauren Claudio PA-C [address] [place] [address] Social History Tobacco Use Types [...] often do you attend roman catholic or sikhism serv ices? Never 09/22/2021 Do [...] Date Recorded PHQ-2 Score 1 10/11/2022 [facility] [place] of Occupat ional Health - Occupational Stress [...] in a residential (including now)? No 09/22/2021 [place] Depression Scale Answer Date Recorded [place] Depression Score 5 01/14/2021 Last EPDS [...] Description 01/09/2024 10:15 AM CDT Office Visit [facility] [place] [address] [facility], [address] [place] [phone] Genny Hyman PA-C [facility] 5775 [facility] 255 [place] [address] [place] [address] [facility] [address] [place], [place] [address] 02/06/2024 10:00 AM CDT Office Visit [facility] [address] [phone] Neil Kent MD 500 [place], [place] 4[address] 03/06/2024 3:00 PM CDT Office Visit [facility] Heart [facility] [address] [facility] [address] [place] [phone] Radha Lomeli, ENVIRONMENTAL SCIENCE PROGRAM DIRECTOR CONTRACTING OFFICER [address] [place], [place] [address] 03/07/2024 9:00 AM CDT Hospital Encounter [address] [phone] Rocky Zepeda DO 500 [place] [address] 03/07/2024 9:00 AM CDT - 03/07/2024 9:30 AM CDT Surgery [address] [phone] Rocky Zepeda DO 500 [place], [place] 24[address] Esophagoscopy, gastroscopy, duodenoscopy (EGD), combined Scheduled Procedures [...] documented as of this encounter Care Teams Collator Operator Relationship Specialty Start Date End Date Marija Edgar APRN CONTRACTING OFFICER PCP - General Nurse Practitioner 04/30/20 04/14/23 Esha Grimm PA-C [address] [place] [phone] PCP - General Family Medicine 05/04/23 Lita Oseguera Personal Advocate & Liaison (PAL) 02/28/20 03/27/23 Marija Edgar APRN CONTRACTING OFFICER Assigned PCP 06/08/20 04/29/23 Keisha Dotson MD 909 [place], [place] 84[address] Assigned Neuroscience Provider 06/04/20 04/01/23 Diana Desir [facility] [address] [place], [place] [phone] Pharmacist Pharmacist 04/17/21 Rain Galaviz PA-C [address] [place] [address] ENMA KNUTSON [address] Physician Supplier Engineer Dermatology 04/28/21 Tavia Wyatt MD [address] [facility] [address] [place] [address] Dermatology 07/14/21 Erica Farrell APRN CONTRACTING OFFICER [address] [place] [address] Nurse Practitioner Cardiovascular Disease 09/09/21 Rich Barrett MD 516 [facility] 9A [place] [address] Physician Ophthalmology 01/21/22 Neil Kent MD 500 [place], [place] 7[address] Dermatology 02/24/22 Diana [facility] 3033 [place], [place] 038466 Assigned MTM Pharmacist 04/07/22 Livan Sharif MD [address] [place] [address] Cardiovascular Disease 05/14/22 Catherine Cm MD [address] [facility] [address] [place] [address] Cardiovascular Disease 07/21/22 Valery Veronica, PA-C [address] [place] [address] 187395 Physician Supplier Engineer Dermatology 07/21/22 Brea Quinn APRN CONTRACTING OFFICER 500 [place] [address] Nurse Practitioner Dermatology 09/21/22 Brea Quinn APRN CONTRACTING OFFICER 6401 [facility] [place] [address] Assigned Surgical Provider 10/09/22 [place] [address] [place] [address] Assigned Musculoskeletal Provider 10/09/22 Catherine Cm MD [address] [facility] [address] [place] [address] Assigned Heart and Vascular Provider 11/13/22 05/27/23 Sydnie Martinez RN Personal Advocate & Liaison (PAL) Family Medicine 03/28/23 07/31/23 Alfonso Renteria MD 5775 [facility] 200 [place] [address] Assigned Neuroscience Provider 04/02/23 Cheng Todd PA-C [address] [place] [address] [id number] Assigned PCP 04/30/23 07/15/23 Radha Lomeli APRN CONTRACTING OFFICER [address] [place] [phone] [place] 086575 Assigned Heart and Vascular Provider 05/28/23 Jelena David OD 3305 [facility] [place] [address] MD Ophthalmology 06/15/23 Pao Joseph, RN Personal Advocate & Liaison (PAL) Nurse 08/01/23 11/07/23 Esha Grimm PA-C [address] [place] [address] Assigned PCP 07/16/23 Valery Veronica PA-C [address] [place] [address] 845645 Physician Supplier Engineer Dermatology 09/19/23 Rey Tay MD [address] [place] [address] 942085 Gastroenterology 09/20/23 Rocky Zepeda DO [address] [place] [address] 117005 Physician Gastroenterology 09/20/23 Philip Dumont MD [address] [place] [address] 075375 Physician Ophthalmology 09/22/23 Meredith Carrera PA-C [address] [place] [address] 102315 Assigned Gastroenterology Provider 11/01/23 Neil Kent MD [address] 534[address] Dermatology 11/02/23 [place] [address] [place] [address] Neurological Surgery 12/26/23 documented as of this encounter
--- OUTSIDE RECORDS SUMMARY | 2024-01-07 18:12 | XMS_ITS | Encounter Summary ---
Author Organization [facility] Address [address] [place] [address] Care Team Providers Care Vise Hand Name Role Phone Marija Edgar APRN LAWN SERVICE WORKER Primary Care Provider Marija Emery APRN, CNP Unavailable Unavail able Diana Desir [facility] Unavailable [phone] Rain Galaviz PA-C Unavailable [phone] Tavia Wyatt MD Unavailable Unavailable Erica Farrell APRN LAWN SERVICE WORKER Unavailable Rich Barrett MD Unavailable [phone] Neil Kent MD Unavailable Diana Desir [facility] Unavailable [phone] Livan Sharif MD Unavailable Catherine Cm MD Unavailable + Valery Veronica PA-C Unavailable [phone] Brea Quinn APRN LAWN SERVICE WORKER Unavailable [phone] Brea Quinn APRN LAWN SERVICE WORKER Unavailable [phone] Jose Francisco Johnson MD Unavailable Catherine Cm MD Unavailable + Juan, Sydnie M RN Unavailable Unavailable Alfonso Renteria MD Unavailable [phone] Esha Grimm PAUcheC Primary Care Provider Cheng Todd PA-C Unavailable Radha Lomeli APRN LAWN SERVICE WORKER Unavailable Jelena David OD Unavailable Pao Joseph RN Unavailable Unavailable Esha Grimm-C Unavailable [phone] JeremíasValery damon PA-C Unavailable Rey Tay MD Unavailable Rocky Zepeda DO Unavailable Philip Dumont MD Unavailable Meredith Carrera-C Unavailable [phone] Neil Kent MD Unavailable Juan Pablo Emmanuel MD Unavailable Reason for Visit * Reason Onset Date Comments Forms 04/13/2023 DMV (LOC) Encounter Details Date Type Department Care Team (Late st Contact Info) Description 04/13/2023 Telephone [facility] Epilepsy [facility] 5775 [facility], [address] [place] [address] Alfonso Renteria MD 5741 [facility] [address] 200 [place] [address] Forms (DMV (LOC)) Social History [...] Answer Date Recorded PHQ-2 Score 0 10/25/2023 [facility] - Occupational Stress Questionnaire Answer [...] exercise at this level? 30 min 03/10/2023 [place] Depression Scale Answer Date Recorded [place] Depression Score 5 01/14/2021 Last EPDS Self [...] are unable to fill this out because [place] [employer] will not accept it. It needs to be in your hand writing. The last one filed was 12/2021 andit said over 3 years ago. Notes in chart said last seizure July 2018. If that helps or if you had a more recent seizure please put that date in. We will watch for your updated form. Our fax number [phone]. Thank you. * Telephone Encounter - Magdalena Anne CMA - 04/13/2023 3:20 PM CDT Received DMV (LOC) Form to be completed. Form saved to [employer], encounter routed. Magdalena Anne CMA documented in this encounter Plan of Treatment Upcoming Encounters Date Type Department Care Team (Late st Contact Info) Description 01/09/2024 10:15 AM CDT Office Visit [facility] Neurology Clinics - [place] [address] [place] [address], [address] [place] [address] Genny Hyman PA-C [facility] Epilepsy Care 9975 [facility] 255 [place], [place] 236[address] [place] [address] [place], [place] [address] 02/06/2024 10:00 AM CDT Office Visit [facility] [place] [address] [phone] Neil Kent MD 500 [place] [address] 03/06/2024 3:00 PM CDT Office Visit [facility] Heart [facility] [address] [facility] [address] [place] [phone] Radha Lomeli, WARP TIER LAWN SERVICE WORKER [address] [place] [address] 03/07/2024 9:00 AM CDT Hospital Encounter [address] [phone] Rocky Zepeda DO 500 [place] [address] 03/07/2024 9:00 AM CDT - 03/07/2024 9:30 AM CDT Surgery [address] [phone] Rocky Zepeda DO 500 [place] [address] Esophagoscopy, gastroscopy, duodenoscopy (EGD), combined Scheduled Procedures [...] documented as of this encounter Care Teams Vise Hand Relationship Specialty Start Date End Date Marija Edgar APRN LAWN SERVICE WORKER PCP - General Nurse Practitioner 04/30/20 04/14/23 Esha Grimm PA-C [address] [place] [address] PCP - General Family Medicine 05/04/23 Marija Edgar APRN LAWN SERVICE WORKER Assigned PCP 06/08/20 04/29/23 Diana Desir, [facility] [address] [place], [place] [address] Pharmacist Pharmacist 04/17/21 Rain Galaviz PA-C [address] [place] [address] [address] [facility] [place] [address] Physician Staff Submarine Warfare Officer Dermatology 04/28/21 Tavia Wyatt MD [address] [place] [address] DR ARRI[address] [facility] [place] [address] Dermatology 07/14/21 Erica Farrell APRN LAWN SERVICE WORKER 6405 [facility] [address] [place] [address] Nurse Practitioner Cardiovascular Disease 09/09/21 Rich Barrett MD 516 [facility] 9A [place], [place] [address] Physician Ophthalmology 01/21/22 Neil Kent MD 500 [place], [place] 0[address] Dermatology 02/24/22 [facility] [place] 3033 [facility] [place] [address] Assigned MTM Pharmacist 04/07/22 Livan Sharif MD [address] [place] [address] Cardiovascular Disease 05/14/22 Catherine Cm MD [address] [place] [address] Cardiovascular Disease 07/21/22 Valery Veronica, PA-C [address] [place] [address] Physician Staff Submarine Warfare Officer Dermatology 07/21/22 Brea Quinn APRN LAWN SERVICE WORKER 500 [place], [place] 70[address] Nurse Practitioner Dermatology 09/21/22 Brea Quinn APRN LAWN SERVICE WORKER [address] [place] [address] Assigned Surgical Provider 10/09/22 [place] [address] [place] [address] Assigned Musculoskeletal Provider 10/09/22 Catherine Cm MD [address] [place] [address] Assigned Heart and Vascular Provider 11/13/22 05/27/23 Juan, Sydnie M, RN Personal Advocate & Liaison (PAL) Family Medicine 03/28/23 07/31/23 Alfonso Renteria MD 5775 [facility] 200 [place] [address] Assigned Neuroscience Provider 04/02/23 Cheng Todd PA-C [address] [place] [address] Assigned PCP 04/30/23 07/15/23 Radha Lomeli APRN LAWN SERVICE WORKER [address] 6532800 [place] [address] Assigned Heart and Vascular Provider 05/28/23 Jelena David OD [address] [facility] [place] [address] Ophthalmology 06/15/23 Pao Joseph, VJ Personal Advocate & Liaison (PAL) Nurse 08/01/23 11/07/23 Esha Grimm PA-C [address] [place] [address] Assigned PCP 07/16/23 Valery Veronica PA-C [address] [place] [address] Physician Staff Submarine Warfare Officer Dermatology 09/19/23 Rey Tay MD [address] [place] [address] 993135 Gastroenterology 09/20/23 Rocky Zepeda DO [address] [place] [address] Physician Gastroenterology 09/20/23 Philip Dumont MD 6 [place] [address] Physician Ophthalmology 09/22/23 Meredith Carrera PA-C [address] [place] [address] Assigned Gastroenterology Provider 11/01/23 Neil Kent MD [address] [place] [address] 888030 Dermatology 11/02/23 [place] [address] [place], [place] [address] Neurological Surgery 12/26/23 documented as of this encounter
--- OUTSIDE RECORDS SUMMARY | 2024-01-07 18:12 | XMS_ITS | Encounter Summary ---
Author Organization [facility] Address [address] [place] [address] Care Team Providers Care Dining Services Director Name Role Phone Marija Edgar APRN CLOTH MEASURER Primary Care Provider Marija Emery APRN, CNP Unavailable Unavail able Keisha Dotson MD Unavailable [phone] Diana Desir [facility] Unavailable [phone] Rain Galaviz PA-C Unavailable [phone] Tavia Wyatt MD Unavailable Unavailable Erica Farrell APRN CLOTH MEASURER Unavailable Rich Barrett MD Unavailable [phone] Neil Kent MD Unavailable Diana Desir [facility] Unavailable [phone] Livan Sharif MD Unavailable Catherine Cm MD Unavailable + Valery Veronica PA-C Unavailable [phone] Brea Quinn APRN CLOTH MEASURER Unavailable [phone] Brea Quinn APRN CLOTH MEASURER Unavailable Jose Francisco Johnson MD Unavailable Catherine Cm MD Unavailable + Sydnie Martinez RN Unavailable Unavailable Alfonso Renteria MD Unavailable [phone] Esha Grimm PAUcheC Primary Care Provider [phone] Cheng Todd PA-C Unavailable Radha Lomeli APRN CLOTH MEASURER Unavailable [phone] Frankie Jelena Garcia OD Unavailable Pao Joseph RN Unavailable Unavailable Esha GrimmC Unavailable [phone] Valery Veronica PA-C Unavailable [phone] Rey Tay MD Unavailable Rocky Zepeda DO Unavailable Philip Dumont MD Unavailable [phone] Meredith Carrera PA-C Unavailable [phone] Neil Kent MD Unavailable Juan Pablo Emmanuel MD Unavailable [phone] Encounter Details Date Type Department Care Team (Late st Contact Info) Description 03/29/2023 [facility] Medical Advice [address] [address] Diana Desir, [facility] [address] [place] [address] Social History Tobacco Use [...] Answer Date Recorded PHQ-2 Score 0 03/10/2023 [facility] [place] of Occupat ional Health - Occupational Stress [...] in a correction (including now)? No 03/10/2023 [place] Depression Scale Answer Date Recorded [place] Depression Score 5 01/14/2021 Last EPDS Self [...] Visit [facility] Neurology [facility] [address] [facility], [address] [place] [phone] Genny Hyman PA-C [facility] Epilepsy [facility] [place] [address] [facility] 255 [place] [address] [place] [address] [facility] [address] [place], [place] [address]24[address] 02/06/2024 10:00 AM CDT Office Visit [facility] [address] [phone] Neil Kent MD 500 [place], [place] 6[address]45 03/06/2024 3:00 PM CDT Office Visit [facility] [address] [facility] [address] [place] [phone] Radha Lomeli, DELIVERY LEAD CLOTH MEASURER [address] [place], [place] [address] 03/07/2024 9:00 AM CDT Hospital Encounter [address] [phone] Rocky Zepeda DO 500 [place] [address] 03/07/2024 9:00 AM CDT - 03/07/2024 9:30 AM CDT Surgery [address] [phone] Rocky Zepeda DO 500 [place], [place] 0[address] Esophagoscopy, gastroscopy, duodenoscopy (EGD), combined Scheduled Procedures Name Priority Associated Diagnoses Date/Ti ok ESOPHAGOGASTRODUODENOSCOPY Eosinophilic esophagitis Esophageal dysphagia 03/07/2024 9:00 AM CDT documented as of this encounter Visit Diagnoses Not on filedocumented in this encounter Additional Health Concerns Infection Onset Date Last Indicated Resolved Time Rule Out COVID-19 12/26/2023 12/26/2023 12/26/2023 9:50 AM CDT Assessment Noted Time PHQ-9 Depression Total Score: 5 03/10/20 6:49 AM CDT documented as of this encounter Care Teams Dining Services Director Relationship Specialty Start Date End Date Marija Edgar APRN CLOTH MEASURER PCP - General Nurse Practitioner 04/30/20 04/14/23 Esha Grimm PA-C [address] [place] [address] PCP - General Family Medicine 05/04/23 Marija Edgar APRN CLOTH MEASURER Assigned PCP 06/08/20 04/29/23 Keisha Dotson MD 9[address] [place], [place] 963805 Assigned Neuroscience Provider 06/04/20 04/01/23 Diana Desir, [facility] [address] [place] [address] Pharmacist Pharmacist 04/17/21 Rain Galaviz PA-C [address] [place] [address] [place] [address] Physician Patrol Driver Dermatology 04/28/21 Tavia Wyatt MD [address] [place] [address] [place] [address] Dermatology 07/14/21 Erica Farrell APRN CLOTH MEASURER [address] [place] [address] Nurse Practitioner Cardiovascular Disease 09/09/21 Rich Barrett MD 516 [facility] [address] [place] [address] Physician Ophthalmology 01/21/22 Neil Kent MD 500 [place], [place] 250615 MD Dermatology 02/24/22 Diana Desir, [facility] [address] [place], [place] 944846 Assigned [place] Pharmacist 04/07/22 Livan Sharif MD [address] [place], [place] [address] Cardiovascular Disease 05/14/22 Catherine Cm MD [address] [place], [place] [address] Cardiovascular Disease 07/21/22 Valery Veronica, PA-C 909 [place], [place] 470755 Physician Patrol Driver Dermatology 07/21/22 Brea Quinn APRN CLOTH MEASURER 500 [place], [place] 7266[address] Nurse Practitioner Dermatology 09/21/22 Brea Quinn APRN CLOTH MEASURER 6401 [facility] [place] [address] Assigned Surgical Provider 10/09/22 [place] [address] [place] [address] Assigned Musculoskeletal Provider 10/09/22 Catherine Cm MD [address] [place] [address] Assigned Heart and Vascular Provider 11/13/22 05/27/23 Sydnie Martinez RN Personal Advocate & Liaison (PAL) Family Medicine 03/28/23 07/31/23 Alfonso Renteria MD [address]75 [facility] 200 [place] [address] Assigned Neuroscience Provider 04/02/23 Cheng Todd PA-C [address] [place] [address] [id number] Assigned PCP 04/30/23 07/15/23 Radha Lomeli APRN CLOTH MEASURER [address] [facility] [address] [place] [address] Assigned Heart and Vascular Provider 05/28/23 Jelena David OD [address] [facility] [place] [address] Ophthalmology 06/15/23 Pao Joseph RN Personal Advocate & Liaison (PAL) Nurse 08/01/23 11/07/23 Esha Grimm PA-C [address] [place] [address] Assigned PCP 07/16/23 Valery Veronica PA-C [address] [place] [address] Physician Patrol Driver Dermatology 09/19/23 Rey Tay MD [address] [place] [address] MD Gastroenterology 09/20/23 Rocky Zepeda DO [address] [place] [address] Physician Gastroenterology 09/20/23 Philip Dumotn MD [address] [place] [address] Physician Ophthalmology 09/22/23 Meredith Carrera PA-C [address] [place] [address] Assigned Gastroenterology Provider 11/01/23 Neil Kent MD [address] [address] Dermatology 11/02/23 [place] [address] [place] [address] Neurological Surgery 12/26/23 documented as of this encounter
--- OUTSIDE RECORDS SUMMARY | 2024-01-07 18:12 | XMS_ITS | Encounter Summary ---
Author Organization [facility] Address [address] [place] [address] Care Team Providers Care Cottonseed Meat Presser Name Role Phone Thang Diana [place] [facility] Unavailable Rain Galaviz-C Unavailable Tavia Wyatt MD Unavailable Unavailable Erica Farrell APRN DBA DEVELOPER Unavailable Rich Barrett MD Unavailable Neil Kent MD Unavailable Diana Desir [facility] Unavailable [phone] Livan Sharif MD Unavailable Catherine Cm MD Unavailable + Valery Veronica-C Unavailable [phone] Brea Quinn MATERIAL HANDLING TECHNICIAN DBA DEVELOPER Unavailable Brea Quinn MATERIAL HANDLING TECHNICIAN DBA DEVELOPER Unavailable Jose Francisco Johnson MD Unavailable Sydnie Martinez RN Unavailable Unavailable Alfonso Renteria MD Unavailable + [phone] Esha Grimm PA-C Primary Care Provider Cheng Todd PA-C Unavailable [phone] Radha Lomeli APRN DBA DEVELOPER Unavailable [phone] Jelena David OD Unavailable Pao Joseph RN Unavailable Unavailable Wicho Grimmlincoln Medina PA-C Unavailable [phone] Valery Veronica PA-C Unavailable [phone] Rey Tay MD Unavailable Rocky Zepeda DO Unavailable Philip Dumont MD Unavailable [phone] Meredith Carrera PA-C Unavailable [phone] Neil Kent MD Unavailable Juan Pablo Emmanuel MD Unavailable Encounter Details Date Type Department Care Team (Late st Contact Info) Description 06/17/2023 [facility] Medical Advice Adam [facility] Epilepsy Care [address] [facility], [address] [place] [address] Alfonso Renteria MD 57[address] [facility] [address] [place] [address] Social History Tobacco Use Types [...] do you attend [facility] system or yarsanism services? 1 to 4 times per year [...] exercise at this level? 30 min 03/10/2023 Marshall Depression Scale Answer Date Recorded Marshall Depression Score 5 01/14/2021 Last EPDS Self [...] an overnight skilled nursing, or couch-surfing.) Yes 06/20/2023 Are you worried [...] calling to follow up on the below RockYout message. Patient continues to have a lot of dizzyness and neck pain. NG ROOM SUPERVISOR documented in this encounter Plan of Treatment Upcoming Encounters Date Type Department Care Team (Late st Contact Info) Description 01/09/2024 10:15 AM CDT Office Visit [facility] Neurology Clinics - [address], [address] [place] [address] Genny Hyman PA-C [facility] Epilepsy Care 57[address] [facility] 255 [place], [place] 6984[address] [place] [address] [place] [address] 02/06/2024 10:00 AM CDT Office [facility] [address] [address] Neil Kent MD 500 [place] [address] 03/06/2024 3:00 PM CDT Office Visit [facility] Heart [facility] [address] [facility] [address] [place] [address] Radha Lomeli, MATERIAL HANDLING TECHNICIAN DBA DEVELOPER [address] [place] [address] 03/07/2024 9:00 AM CDT Hospital Encounter [facility] [address] [place] [phone] Rocky Zepeda DO 500 [place] [address] 03/07/2024 9:00 AM CDT - 03/07/2024 9:30 AM CDT Surgery [address] [phone] Rocky Zepeda DO 500 [place] [address] Esophagoscopy, gastroscopy, duodenoscopy (EGD), combined Scheduled Procedures [...] Total Score: 6 05/16/20 23 9:29 AM DRYING ROOM SUPERVISOR documented as of this encounter Care Teams Cottonseed Meat Presser Relationship Specialty Start Date End Date Esha Grimm PA-C [address] [place] [address] PCP - General Family Medicine 05/04/23 Diana Desir, [facility] [place] [address] Pharmacist Pharmacist 04/17/21 Rain Galaviz PA-C [address] [place] [address] [address] [place] [address] Physician Dairy Products Maker Dermatology 04/28/21 Tavia Wyatt MD [address] [place] [address] [place] [address] Dermatology 07/14/21 Erica Farrell APRN DBA DEVELOPER [address] 1285100 [place] [address] Nurse Practitioner Cardiovascular Disease 09/09/21 Rich Barrett MD 516 [facility] 9[address] [place], [place] [address] Physician Ophthalmology 01/21/22 Neil Kent MD 500 [place], [place] 0[address]245 Dermatology 02/24/22 Diana Desir, [facility] [address] [place] [address] Assigned MTM Pharmacist 04/07/22 Livan Sharif MD [address] [facility] [address] [place] [address] Cardiovascular Disease 05/14/22 Catherine Cm MD [address] [facility] [address] [place] [address] Cardiovascular Disease 07/21/22 Valery Veronica PA-C [address] [place] [address] 766525 Physician Dairy Products Maker Dermatology 07/21/22 Brea Quinn APRN DBA DEVELOPER [address] [place] [address] 389685 Nurse Practitioner Dermatology 09/21/22 Brea Quinn APRN DBA DEVELOPER [address] [facility] [place] [address] Assigned Surgical Provider 10/09/22 [place] [address] [facility] 300 [place] [address] Assigned Musculoskeletal Provider 10/09/22 Sydnie Martinez RN Personal Advocate & Liaison (PAL) Family Medicine 03/28/23 07/31/23 Alfonso Renteria MD 5775 [facility] 200 [place], [place] [address] Assigned Neuroscience Provider 04/02/23 Cheng Todd PA-C [address] [place] [address] [phone] Assigned PCP 04/30/23 07/15/23 Radha Lomeli APRN DBA DEVELOPER [address] [place] [address] Assigned Heart and Vascular Provider 05/28/23 Jelena David OD [address] [place] [address] MD Ophthalmology 06/15/23 Pao Joseph, RN Personal Advocate & Liaison (PAL) Nurse 08/01/23 11/07/23 Esha Grimm PA-C [address] [place] [phone] Assigned PCP 07/16/23 Valery Veronica PA-C [address] [place] [address] 531235 Physician Dairy Products Maker Dermatology 09/19/23 Rey Tay MD [address] [place] [address] Gastroenterology 09/20/23 Rocky Zepeda DO [address] [place] [address] 943265 Physician Gastroenterology 09/20/23 Philip Dumont MD [address] [place] [address] 306385 Physician Ophthalmology 09/22/23 Meredith Carrera PA-C [address] [place] [address] 396605 Assigned Gastroenterology Provider 11/01/23 Neil Kent MD [address] [place] [address] Dermatology 11/02/23 [place] [address] [address] Neurological Surgery 12/26/23 documented as of this encounter
--- OUTSIDE RECORDS SUMMARY | 2024-01-07 18:12 | XMS_ITS | Encounter Summary ---
Author Organization [facility] Address [address] [place] [address] Care Team Providers Care Leadership Development Consultant Name Role Phone Marija Edgar ARLENE BAILER TENDERS SUPERVISOR Unavailable Unavail able Diana Desir [facility] Unavailable [phone] Rain Galaviz PA-C Unavailable [phone] Tavia Wyatt MD Unavailable Unavailable Erica Farrell APRN BAILER TENDERS SUPERVISOR Unavailable Rich Barrett MD Unavailable Neil Kent MD Unavailable Diana Desir [facility] Unavailable Livan Sharif MD Unavailable Catherine Cm MD Unavailable + Valery Veronica PA-C Unavailable [phone] Brea Quinn GROUNDMAN/LINEMAN BAILER TENDERS SUPERVISOR Unavailable [phone] Brea Quinn GROUNDMAN/LINEMAN BAILER TENDERS SUPERVISOR Unavailable [phone] Jose Francisco Johnson MD Unavailable Catherine Cm MD Unavailable + Sydnie Martinez RN Unavailable Unavailable Alfonso Renteria MD Unavailable + [phone] Esha Grimm PA-C Primary Care Provider [phone] Cheng Todd PA-C Unavailable Armani Radha Stovall ARLENE BAILER TENDERS SUPERVISOR Unavailable [phone] Jelena David OD Unavailable Pao Joseph RN Unavailable Unavailable Esha Grimm PA-C Unavailable [phone] Valery Veronica PA-C Unavailable [phone] Rey Tay MD Unavailable Rocky Zepeda DO Unavailable Philip Dumont MD Unavailable [phone] Meredith Carrera PA-C Unavailable [phone] Neil Kent MD Unavailable Juan Pablo Emmanuel MD Unavailable [phone] Encounter Details Date Type Department Care Team (Late st Contact Info) Description 04/18/2023 [facility] Medical Advice [facility] Gastroenterology Clinic [address] [place] [address] Mary Calvo Social History Tobacco Use [...] week 03/10/2023 How often do you attend [facility] or [facility] services? 1 to 4 [...] Answer Date Recorded PHQ-2 Score 0 03/10/2023 [facility] Occupat ional [facility] [...] exercise at this level? 30 min 03/10/2023 [place] Depression Scale Answer Date Recorded [place] Depression Score 5 01/14/2021 Last EPDS Self [...] in an overnight long-term, or couch-surfing.) Yes 04/18/2023 Are you worried [...] 10:15 AM CDT Office Visit [facility] Neurology Clinics - [address], [address] [place] [address] [address]enny Hyman PA-C [facility] Epilepsy Care 5775 [facility] 255 [place] [address] [place] [address] [place] [address] 02/06/2024 10:00 AM CDT Office Visit [facility] [address] [address] Neil Kent MD 500 [place] [address] 03/06/2024 3:00 PM CDT Office Visit [facility] Heart [facility] [address] [place] [address] Radha Lomeli, GROUNDMAN/LINEMAN BAILER TENDERS SUPERVISOR [address] [place] [address] 03/07/2024 9:00 AM CDT Hospital Encounter [facility] [address] [place] [phone] Rocky Zepeda DO 500 [place] [address] 03/07/2024 9:00 AM CDT - 03/07/2024 9:30 AM CDT Surgery [address] [phone] Rocky Zepeda DO 500 [place] [address] Esophagoscopy, gastroscopy, duodenoscopy (EGD), combined Scheduled Procedures Name Priority Associated Diagnoses Date/Ti az ESOPHAGOGASTRODUODENOSCOPY Eosinophilic esophagitis Esophageal dysphagia 03/07/2024 9:00 AM CDT documented as of this encounter Visit Diagnoses Not on filedocumented in this encounter Additional Health Concerns Infection Onset Date Last Indicated Resolved Time Rule Out COVID-19 12/26/2023 12/26/2023 12/26/2023 9:50 AM CDT Assessment Noted Time PHQ-9 Depression Total Score: 5 03/10/20 23 6:49 AM CDT documented as of this encounter Care Teams Leadership Development Consultant Relationship Specialty Start Date End Date Esha Grimm PA-C [address] [place] [address] PCP - General Family Medicine 05/04/23 Marija Edgar APRN BAILER TENDERS SUPERVISOR Assigned PCP 06/08/20 04/29/23 Diana Desir, [facility] [address] [place] [address] Pharmacist Pharmacist 04/17/21 Rain Galaviz PA-C [address] [place] [address] [address] [facility] [address] Physician Combined Rail Operator Dermatology 04/28/21 Tavia Wyatt MD [address] [place] [address] [place] [address] Dermatology 07/14/21 Erica Farrell APRN BAILER TENDERS SUPERVISOR 6405 [facility] [address] [place] [address] Nurse Practitioner Cardiovascular Disease 09/09/21 Rich Barrett MD 516 [facility] 9A [place], [place] [address] Physician Ophthalmology 01/21/22 Neil Kent MD 500 [place] [address] Dermatology 02/24/22 Diana Desir, [facility] [address] [place] [address] Assigned MTM Pharmacist 04/07/22 Livan Sharif MD [address] [address] Cardiovascular Disease 05/14/22 Catherine Cm MD [address] [address] Cardiovascular Disease 07/21/22 Valery Veronica, PAUcheC [address] [place] [address] Physician Combined Rail Operator Dermatology 07/21/22 Brea Quinn APRN BAILER TENDERS SUPERVISOR [address] [place] [address] Nurse Practitioner Dermatology 09/21/22 Brea Quinn APRN BAILER TENDERS SUPERVISOR [address] [place] [address] Assigned Surgical Provider 10/09/22 [place] [address] [address] Assigned Musculoskeletal Provider 10/09/22 Catherine Cm MD [address] [address] Assigned Heart and Vascular Provider 11/13/22 05/27/23 Sydnie Martinez RN Personal Advocate & Liaison (PAL) Family Medicine 03/28/23 07/31/23 Alfonso Renteria MD [address] [facility] [address] [place] [address] Assigned Neuroscience Provider 04/02/23 Cheng Todd PA-C [address] [place] [address] Assigned PCP 04/30/23 07/15/23 Radha Lomeli APRN BAILER TENDERS SUPERVISOR 6405 [facility] [address] [place], [place] [address] Assigned Heart and Vascular Provider 05/28/23 Jelena David OD [address] [facility] [address] [place] [id number] Ophthalmology 06/15/23 Pao Joseph, VJ Personal Advocate & Liaison (PAL) Nurse 08/01/23 11/07/23 Esha Grimm PA-C [address] [place] [address] Assigned PCP 07/16/23 Valery Veronica PA-C [address] [place] [address] Physician Combined Rail Operator Dermatology 09/19/23 Rey Tay MD [address] [place] [address] 290465 Gastroenterology 09/20/23 Rocky Zepeda DO [address] [place] [address] [id number] Physician Gastroenterology 09/20/23 Philip Dumont MD 516 [place] [address] Physician Ophthalmology 09/22/23 Meredith Carrera PA-C 9 [place], [place] 602925 Assigned Gastroenterology Provider 11/01/23 Neil Kent MD [address] [address] Dermatology 11/02/23 [place] [address] [place] [address] Neurological Surgery 12/26/23 documented as of this encounter
--- OUTSIDE RECORDS SUMMARY | 2024-01-07 18:12 | XMS_ITS | Encounter Summary ---
Author Organization [facility] Address [address] [place] [address] Care Team Providers Care Medical Biller Name Role Phone Lita Oseguera Unavailable Unavailable Marija Edgar APRN, CNP Primary Care Provider U Marija Bella APRN, CNP Unavailable Unavail able Keisha Dotson MD Unavailable [phone] Diana Desir [facility] Unavailable [phone] Rain Galaviz PA-C Unavailable Tavia Wyatt MD Unavailable Unavailable Erica Farrell APRN COMMUNITY RECREATION PROGRAMMER Unavailable Rich Barrett MD Unavailable [phone] Neil Kent MD Unavailable Diana Desir [facility] Unavailable [phone] Livan Sharif MD Unavailable Catherine Cm MD Unavailable + Valery Veronica PA-C Unavailable [phone] Brea Quinn APRN COMMUNITY RECREATION PROGRAMMER Unavailable [phone] Brea Quinn APRN COMMUNITY RECREATION PROGRAMMER Unavailable Jose Francisco Johnson MD Unavailable Catherine Cm MD Unavailable + Sydnie Martinez RN Unavailable Unavailable Alfonso Renteria MD Unavailable [phone] Esha Grimm PA-C Primary Care Provider [phone] Perez Chengjc Fish PA-C Unavailable [phone] Radha Lomeli APRN COMMUNITY RECREATION PROGRAMMER Unavailable Frankie Jelena Garcia OD Unavailable Pao Joseph RN Unavailable Unavailable Esha Grimm PA-C Unavailable Valery Veronica PA-C Unavailable Rey Tay MD Unavailable Rocky Zepeda DO Unavailable Philip Dumont MD Unavailable [phone] Meredith Carrera PA-C Unavailable [phone] Neil Kent MD Unavailable Juan Pablo Emmanuel MD Unavailable [phone] Encounter Details Date Type Department Care Team (Late st Contact Info) Description 01/28/2023 MyC Medical Advice [facility] [address] [place] [address] Margaret Rendon, RN Social History Tobacco Use [...] How often do you attend judaism or synagogue serv ices? Never 09/22/2021 Do you belong [...] Answer Date Recorded PHQ-2 Score 1 10/11/2022 [facility] of Occupat ional Health - Occupational Stress [...] in a fdc (including now)? No 09/22/2021 [place] Depression Scale Answer Date Recorded [place] Depression Score 5 01/14/2021 Last EPDS [...] CDT Office Visit [facility] Neurology [facility] [address], [address] [place] [phone] Genny Hyman PA-C [facility] Epilepsy [facility] 5775 [facility] 255 [place] [address] [place] [address] [place] [address] 02/06/2024 10:00 AM CDT Office Visit [facility] [address] [phone] Neil Kent MD 500 [place], [place] 6[address] 03/06/2024 3:00 PM CDT Office Visit [facility] Heart [facility] [address] [place] [phone] Radha Lomeli, QUALITY CONTROL COORDINATOR COMMUNITY RECREATION PROGRAMMER [address] [place] [address] 03/07/2024 9:00 AM CDT Hospital Encounter [address] [phone] Rocky Zepeda DO 500 [place], [place] 857115 03/07/2024 9:00 AM CDT - 03/07/2024 9:30 AM CDT Surgery [facility] [address] [place] [address] 5th [place] [phone] Rocky Zepeda DO 500 [place], [place] 178985 Esophagoscopy, gastroscopy, duodenoscopy (EGD), combined Scheduled Procedures [...] as of this encounter Care Teams Medical Biller Relationship Specialty Start Date End Date Marija Edgar APRN COMMUNITY RECREATION PROGRAMMER PCP - General Nurse Practitioner 04/30/20 04/14/23 Esha Grimm PA-C [address] [place] [address] PCP - General Family Medicine 05/04/23 Lita Oseguera Personal Advocate & Liaison (PAL) 02/28/20 03/27/23 Marija Edgar APRN COMMUNITY RECREATION PROGRAMMER Assigned PCP 06/08/20 04/29/23 Keisha Dotson MD 909 [place] [address] Assigned Neuroscience Provider 06/04/20 04/01/23 Diana Desir, [facility] 3033 [place] [address] Pharmacist Pharmacist 04/17/21 Rain Galaviz PA-C [address] [place] [address] [place] [address] Physician Fitness Club Manager Dermatology 04/28/21 Tavia Wyatt MD [address] [place] [address] [address] [place] [address] Dermatology 07/14/21 Erica Farrell APRN COMMUNITY RECREATION PROGRAMMER [address] [place] [address] Nurse Practitioner Cardiovascular Disease 09/09/21 Rich Barrett MD 516 [facility] [address] [place], [place] 4768[address] Physician Ophthalmology 01/21/22 Neil Kent MD 500 [place], [place] [phone] Dermatology 02/24/22 Diana Desir, [facility] 3033 [place], [place] 276196 Assigned MTM Pharmacist 04/07/22 Livan Sharif MD [address] [place] [address] Cardiovascular Disease 05/14/22 Catherine Cm MD [address] [facility]00 [place] [address] Cardiovascular Disease 07/21/22 Valery Veronica, PAUcheC [address] [place] [address] 654795 Physician Fitness Club Manager Dermatology 07/21/22 Brea Quinn APRN COMMUNITY RECREATION PROGRAMMER 500 [place], [place] [phone] Nurse Practitioner Dermatology 09/21/22 Brea Quinn APRN COMMUNITY RECREATION PROGRAMMER [address] [facility] [place] [address] Assigned Surgical Provider 10/09/22 [place] [address] [place] [address] Assigned Musculoskeletal Provider 10/09/22 Catherine Cm MD [address] [place] 042045 Assigned Heart and Vascular Provider 11/13/22 05/27/23 Sydnie Martinez RN Personal Advocate & Liaison (PAL) Family Medicine 03/28/23 07/31/23 Alfonso Renteria MD 5775 [facility] 200 [place], [place] 293756 Assigned Neuroscience Provider 04/02/23 Cheng Todd PA-C [address] [place] [address] [id number] Assigned PCP 04/30/23 07/15/23 Radha Lomeli APRN COMMUNITY RECREATION PROGRAMMER [address] [facility] [address] [place] 649615 Assigned Heart and Vascular Provider 05/28/23 Jelena David OD [address] [facility] [place] [address] Ophthalmology 06/15/23 Jake, Pao, RN Personal Advocate & Liaison (PAL) Nurse 08/01/23 11/07/23 Esha Grimm PA-C [address] [place] [address] Assigned PCP 07/16/23 Valery Veronica PA-C [address] [place] [address] 405195 Physician Fitness Club Manager Dermatology 09/19/23 Rey Tay MD [address] [place] [address] 793575 MD Gastroenterology 09/20/23 Rocky Zepeda DO [address] [place] [address] Physician Gastroenterology 09/20/23 Philip Dumont MD [address] [place] [address] 976105 Physician Ophthalmology 09/22/23 Meredith Carrera PA-C [address] [place] [address] Assigned Gastroenterology Provider 11/01/23 Neil Kent MD [address] [place] [address] Dermatology 11/02/23 [place] [address] [place] [address] Neurological Surgery 12/26/23 documented as of this encounter
--- OUTSIDE RECORDS SUMMARY | 2024-01-07 18:13 | XMS_ITS | Encounter Summary ---
Author Organization [facility] Address [address] [place] [address] Care Team Providers Care Grazing Aide Name Role Phone Lita Oseguera Unavailable Unavailable Marija Edgar APRN, CNP Primary Care Provider U Marija Bella APRN, CNP Unavailable Unavail able Keisha Dotson MD Unavailable [phone] Diana Desir [facility] Unavailable [phone] Rain Galaviz PA-C Unavailable Tavia Wyatt MD Unavailable Unavailable Erica Farrell APRN GRAZING AIDE Unavailable Rich Barrett MD Unavailable [phone] Neil Kent MD Unavailable Diana Desir [facility] Unavailable [phone] Livan Sharif MD Unavailable Catherine Cm MD Unavailable + Valery Veronica PA-C Unavailable [phone] Brea Quinn APRN GRAZING AIDE Unavailable [phone] Brea Quinn INSPECTOR MULTIFOCAL LENS GRAZING AIDE Unavailable Jose Francisco Johnson MD Unavailable Livan Sharif MD Unavailable Catherine Cm MD Unavailable + Sydnie Martinez RN Unavailable Unavailable Alfonso Renteria MD Unavailable [phone] Esha Grimm PA-C Primary Care Provider [phone] Cheng Todd PA-C Unavailable Radha Lomeli APRN GRAZING AIDE Unavailable Jelena David OD Unavailable Pao Joseph RN Unavailable Unavailable Esha Grimm PA-C Unavailable [phone] Valery Veronica PA-C Unavailable [phone] Rey Tay MD Unavailable Rocky Zepeda DO Unavailable Philip Dumont MD Unavailable [phone] Meredith Carrera PA-C Unavailable [phone] Neil Kent MD Unavailable Juan Pablo Emmanuel MD Unavailable [phone] Encounter Details Date Type Department Care Team (Late st Contact Info) Description 11/10/2022 MyC Medical Advice [facility] [address] [place] [address] Lauren Claudio PA-C [address] [place] [address] Social History Tobacco Use Types [...] How often do you attend presybeterian or anabaptist serv ices? Never 09/22/2021 Do you belong [...] Answer Date Recorded PHQ-2 Score 1 10/11/2022 [facility] [place] of Occupat ional Health - Occupational Stress [...] slept in a fci (including now)? No 09/22/2021 [place] Depression Scale Answer Date Recorded [place] Depression Score 5 01/14/2021 Last EPDS Self [...] Office Visit [facility] Neurology [facility] 6545 [facility], [address] [place] [phone] Genny Hyman PA-C [facility] Epilepsy [facility] [address] [facility] [address] [place] [address] [place] [address] [facility] [address] 300 [place] [address] 02/06/2024 10:00 AM CDT Office Visit [facility] [address] [phone] Neil Kent MD 500 [place], [place] 206845 03/06/2024 3:00 PM CDT Office Visit [facility] Heart [facility] [address] [facility] [address] [place] [phone] Radha Lomeli, INSPECTOR MULTIFOCAL LENS GRAZING AIDE [address] [place], [place] 0[address]245 03/07/2024 9:00 AM CDT Hospital Encounter [facility] [address] [place] [address] 5th [place] [phone] Rocky Zepeda DO 500 [place] [address] 03/07/2024 9:00 AM CDT - 03/07/2024 9:30 AM CDT Surgery [address] 5th [place] [phone] Rocky Zepeda DO 500 [place], [place] 227475 Esophagoscopy, gastroscopy, duodenoscopy (EGD), combined Scheduled Procedures [...] documented as of this encounter Care Teams Grazing Aide Relationship Specialty Start Date End Date Marija Edgar APRN GRAZING AIDE PCP - General Nurse Practitioner 04/30/20 04/14/23 Esha Grimm PA-C [address] [place] [phone] PCP - General Family Medicine 05/04/23 Lita Oseguera Personal Advocate & Liaison (PAL) 02/28/20 03/27/23 Marija Edgar APRN GRAZING AIDE Assigned PCP 06/08/20 04/29/23 Keisha Dotson MD 909 [place], [place] 611855 Assigned Neuroscience Provider 06/04/20 04/01/23 Diana Desir [facility] 3033 [place], [place] 173856 Pharmacist Pharmacist 04/17/21 Rain Galaviz PA-C [address] [place] [address] [address] [place] [address] Physician Cork Compounder Dermatology 04/28/21 Tavia Wyatt MD [address] [place] [address] [address] [place] [address] Dermatology 07/14/21 Erica Farrell APRN GRAZING AIDE [address] [place], [place] 114025 Nurse Practitioner Cardiovascular Disease 09/09/21 Rich Barrett MD [address] [place] [address] 649155 Physician Ophthalmology 01/21/22 Neil Kent MD [address] [place] [address] 069245 Dermatology 02/24/22 [facility] [address] [place] [address] 586196 Assigned [place] Pharmacist 04/07/22 Livan Sharif MD [address], [facility]00 [place] 094775 Cardiovascular Disease 05/14/22 Catherine Cm MD [address] [facility]00 [place] 933615 Cardiovascular Disease 07/21/22 Valery Veronica PA-C [address] [place] [address] 568415 Physician Cork Compounder Dermatology 07/21/22 Brea Quinn APRN GRAZING AIDE 500 [place] [address] Nurse Practitioner Dermatology 09/21/22 Brea Quinn APRN GRAZING AIDE 6401 [place] [address] Assigned Surgical Provider 10/09/22 [place] [address] [facility] 300 [place] [address] Assigned Musculoskeletal Provider 10/09/22 Livan Sharif MD [address] [place] [address] Assigned Heart and Vascular Provider 11/06/22 11/12/22 Catherine Cm MD [address] [place] [address] Assigned Heart and Vascular Provider 11/13/22 05/27/23 Sydnie Martinez RN Personal Advocate & Liaison (PAL) Family Medicine 03/28/23 07/31/23 Alfonso Renteria MD 5775 [facility] 200 [place], [place] 172006 Assigned Neuroscience Provider 04/02/23 Cheng Todd PA-C [address] [place] [address] Assigned PCP 04/30/23 07/15/23 Radha Lomeli APRN GRAZING AIDE 6405 [facility] [address] [place] [address] Assigned Heart and Vascular Provider 05/28/23 Jelena David OD [address] [facility] [place] [address] MD Ophthalmology 06/15/23 Pao Joseph, VJ Personal Advocate & Liaison (PAL) Nurse 08/01/23 11/07/23 Esha Grimm PA-C [address] [place] [phone] Assigned PCP 07/16/23 Valery Veronica PA-C [address] [place] [address] 163935 Physician Cork Compounder Dermatology 09/19/23 Rey Tay MD [address] [place] [address] 324065 Gastroenterology 09/20/23 Rocky Zepeda DO [address] [place] [address] 037395 Physician Gastroenterology 09/20/23 Philip Dumont MD [address] [place] [address] 819855 Physician Ophthalmology 09/22/23 Meredith Carrera PA-C [address] [place] [address] 157575 Assigned Gastroenterology Provider 11/01/23 Neil Kent MD [address] [place] [address] Dermatology 11/02/23 [place] [address] [place] [address] Neurological Surgery 12/26/23 documented as of this encounter
--- OUTSIDE RECORDS SUMMARY | 2024-01-07 18:13 | XMS_ITS | Encounter Summary ---
Author Organization [facility] Address [address] [place] [address] Care Team Providers Care Siphon Operator Name Role Phone Lita Oseguera Unavailable Unavailable Marija Edgar APRN OCCUPATIONAL HEALTH AND SAFETY OFFICER Primary Care Provider U Marija Bella APRN OCCUPATIONAL HEALTH AND SAFETY OFFICER Unavailable Unavail able Keisha Dotson MD Unavailable [phone] Diana Desir [facility] Unavailable [phone] Rain Galaviz PA-C Unavailable [phone] Tavia Wyatt MD Unavailable Unavailable Erica Farrell APRN OCCUPATIONAL HEALTH AND SAFETY OFFICER Unavailable Rich Barrett MD Unavailable [phone] Neil Kent MD Unavailable Diana Desir [facility] Unavailable [phone] Livan Sharif MD Unavailable Catherine Cm MD Unavailable + Valery Veronica PA-C Unavailable [phone] Catherine Cm MD Unavailable + Brea Quinn APRN OCCUPATIONAL HEALTH AND SAFETY OFFICER Unavailable [phone] Brea Quinn APRN OCCUPATIONAL HEALTH AND SAFETY OFFICER Unavailable [phone] Jose Francisco Johnson MD Unavailable Livan Sharif MD Unavailable Catherine Cm MD Unavailable + Sydnie Martinez RN Unavailable Unavailable Alfonso Renteria MD Unavailable [phone] Esha Grimm PA-C Primary Care Provider [phone] Cheng Todd PA-C Unavailable Radha Lomeli APRN OCCUPATIONAL HEALTH AND SAFETY OFFICER Unavailable Jelena David Radha OD Unavailable Pao Joseph RN Unavailable Unavailable Esha Grimm PA-C Unavailable [phone] Valery Veronica PA-C Unavailable [phone] Rey Tay MD Unavailable Rocky Zepeda DO Unavailable Philip Dumont MD Unavailable Meredith Carrera PA-C Unavailable [phone] Neil Kent MD Unavailable Juan Pablo Emmanuel MD Unavailable [phone] Reason for Visit * Reason Onset Date Comments Pt. Information/instruction 10/11/2022 Appointment 10/11/2022 Encounter Details Date Type Department Care Team (Late st Contact Info) Description 10/11/2022 Telephone [facility] [place] [address] [facility] [address] [place] [address] [place] [address] [facility] [address] [place] [address] Pt. Information/instructio n; Appointment Social History Tobacco [...] How often do you attend zoroastrianism or voodoo serv ices? Never 09/22/2021 Do [...] Answer Date Recorded PHQ-2 Score 1 10/11/2022 [facility] of Occupat ional [...] in a usp (including now)? No 09/22/2021 [place] Depression Scale Answer Date Recorded [place] Depression Score 5 01/14/2021 Last EPDS Self [...] Treasure Lee - 10/15/2022 2:14 PM CDT [facility] Phone Message May a detailed message be left on voicemail: yes Reason for Call: Other: [facility] is wondering if she can also be conference in on patient's upcoming appointment (10/27). Action Taken: Other: [facility] Sports Medicine Travel Screening: Not Applicable * Telephone Encounter - Mary Easley - 10/12/2022 12:47 PM CDT Called Rosalva to discuss what they are needing from 's office. No answer. Left message to call back Kristina Easley ATC * Telephone Encounter - Treasure Lee - 10/11/2022 10:05 AM CDT [facility] Phone Message May a detailed message be left on voicemail: yes Reason for Call: Other: Please contact patient's tire adjusterRosalva so she can authorize patient's MRI. Rosalva's contact info: phone# [phone] fax# [phone] Action Taken: Other: [facility] Sports Medicine Travel Screening: Not Applicable documented in this encounter Plan of Treatment Upcoming Encounters Date Type Department Care Team (Late st Contact Info) Description 01/09/2024 10:15 AM CDT Office Visit [facility] Neurology [facility] [address] [facility], [address] [place] [phone] Genny Hyman PA-C [facility] Epilepsy [facility] 5775 [facility] 255 [place], [place] 7455[address] [place] [address] [place], [place] 5[address] 02/06/2024 10:00 AM CDT Office Visit [facility] [address] [phone] Neil Kent MD 500 [place] [address] 03/06/2024 3:00 PM CDT Office Visit [facility] Heart [facility] [address] [facility] [address] [place] [phone] Radha Lomeli APRN OCCUPATIONAL HEALTH AND SAFETY OFFICER 6[address] [facility] [address] [place], [place] 4968[address] 03/07/2024 9:00 AM CDT Hospital Encounter [facility] [address] [place] [address] 5th [place] [phone] Rocky Zepeda DO 500 [place], [place] 218495 03/07/2024 9:00 AM CDT - 03/07/2024 9:30 AM CDT Surgery [facility] [address] [place] [address] 5th [place] [phone] Rocky Zepeda, DO 500 [place], [place] 778635 Esophagoscopy, gastroscopy, duodenoscopy (EGD), combined Scheduled Procedures [...] documented as of this encounter Care Teams Siphon Operator Relationship Specialty Start Date End Date Marija Edgar APRN OCCUPATIONAL HEALTH AND SAFETY OFFICER PCP - General Nurse Practitioner 04/30/20 04/14/23 Esha Grimm PA-C [address] [place] [phone] PCP - General Family Medicine 05/04/23 Lita Oseguera Personal Advocate & Liaison (PAL) 02/28/20 03/27/23 Marija Edgar APRN OCCUPATIONAL HEALTH AND SAFETY OFFICER Assigned PCP 06/08/20 04/29/23 Keisha Dotson MD 909 [place], [place] 121065 Assigned Neuroscience Provider 06/04/20 04/01/23 Diana Desir [facility] 3033 [place], [place] 145646 Pharmacist Pharmacist 04/17/21 Rain Galaviz PA-C [address] [place] [address] [address] [place] [address] Physician Senior Manufacturing Technician Dermatology 04/28/21 Tavia Wyatt MD [address] [place] [address] [place] [address] Dermatology 07/14/21 Erica Farrell, NETWORK SYSTEMS OPERATOR OCCUPATIONAL HEALTH AND SAFETY OFFICER [address] [place] 581195 Nurse Practitioner Cardiovascular Disease 09/09/21 Rich Barrett MD [address] [place] [address] 9[address] [place], [place] 159965 Physician Ophthalmology 01/21/22 Neil Kent MD 500 [place], [place] 322565 Dermatology 02/24/22 Diana Desir, [facility] 3033 [place] [address] Assigned MTM Pharmacist 04/07/22 Livan Sharif MD [address], [address] [place] 147665 Cardiovascular Disease 05/14/22 Catherine Cm MD [address] [place] [address] Cardiovascular Disease 07/21/22 Valery Veronica PA-C 909 [place], [place] 002215 Physician Senior Manufacturing Technician Dermatology 07/21/22 Catherine Cm MD [address] [facility] [address] [facility] [place] 584705 Assigned Heart and Vascular Provider 07/24/22 11/05/22 Brea Quinn APRN OCCUPATIONAL HEALTH AND SAFETY OFFICER 500 [place], [place] 959964[address] Nurse Practitioner Dermatology 09/21/22 Brea Quinn APRN OCCUPATIONAL HEALTH AND SAFETY OFFICER 6401 [place], [place] 191502 Assigned Surgical Provider 10/09/22 [place] [address] 122[address] Assigned Musculoskeletal Provider 10/09/22 Livan Sharif MD [address] [facility] [address] [place] [address] Assigned Heart and Vascular Provider 11/06/22 11/12/22 Catherine Cm MD [address] [place] 739655 Assigned Heart and Vascular Provider 11/13/22 05/27/23 Sydnie Martinez RN Personal Advocate & Liaison (PAL) Family Medicine 03/28/23 07/31/23 Alfonso Renteria MD [address] [facility] [address] 200 [place] [address] Assigned Neuroscience Provider 04/02/23 Cheng Todd PA-C [address] [place] [address] Assigned PCP 04/30/23 07/15/23 Radha Lomeli APRN OCCUPATIONAL HEALTH AND SAFETY OFFICER 6405 [facility] [address] [place], [place] 181875 Assigned Heart and Vascular Provider 05/28/23 Jelena David OD [address] [facility] [place] [address] Ophthalmology 06/15/23 Pao Joseph, VJ Personal Advocate & Liaison (PAL) Nurse 08/01/23 11/07/23 Esha Grimm PA-C [address] [place] [phone] Assigned PCP 07/16/23 Valery Veronica PA-C [address] [place] [address] 824815 Physician Senior Manufacturing Technician Dermatology 09/19/23 Rey Tay MD [address] [place] [address] 429645 Gastroenterology 09/20/23 Rocky Zepeda DO [address] [place] [address] 444975 Physician Gastroenterology 09/20/23 Philip Dumont MD 516 [place] [address] Physician Ophthalmology 09/22/23 Meredith Carrera PA-C 9 [place] [address] Assigned Gastroenterology Provider 11/01/23 Neil Kent MD [address] [place] [address] Dermatology 11/02/23 [place] [address] [place] [address] Neurological Surgery 12/26/23 documented as of this encounter
--- OUTSIDE RECORDS SUMMARY | 2024-01-07 18:13 | XMS_ITS | Encounter Summary ---
Author Organization [place] Address [address] [place] [address] Care Team Providers Care Package Yarns Drying Machine Operator Name Role Phone Lita Oseguera Unavailable Unavailable Marija Edgar APRN TUNGSTEN TENDER Primary Care Provider U Marija Bella APRN TUNGSTEN TENDER Unavailable Unavail able Keisha Dotson MD Unavailable [phone] Diana Desir [facility] Unavailable [phone] Rain Galaviz PA-C Unavailable [phone] Tavia Wyatt MD Unavailable Unavailable Erica Farrell APRN TUNGSTEN TENDER Unavailable Rich Barrett MD Unavailable [phone] Neil [place] MD Unavailable Diana Desir [facility] Unavailable [phone] Livan Sharif MD Unavailable Catherine Cm MD Unavailable + Valery Veronica PA-C Unavailable [phone] Catherine Cm MD Unavailable + Brea Quinn APRN TUNGSTEN TENDER Unavailable [phone] Brea Quinn APRN TUNGSTEN TENDER Unavailable [phone] Jose Francisco Johnson MD Unavailable Livan Sharif MD Unavailable Catherine Cm MD Unavailable + Sydnie Martinez RN Unavailable Unavailable Alfonso Renteria MD Unavailable [phone] Esha Grimm PA-C Primary Care Provider [phone] Cheng Todd PA-C Unavailable Armani Radha Stovall APRN TUNGSTEN TENDER Unavailable Jelena David OD Unavailable Pao Joseph RN Unavailable Unavailable Esha Grimm PA-C Unavailable [phone] Valery Veronica PA-C Unavailable Rey Tay MD Unavailable Rocky Zepeda DO Unavailable Philip Dumont MD Unavailable [phone] Meredith Carrera PA-C Unavailable [phone] Neil [place] MD Unavailable Juan Pablo Emmanuel MD Unavailable Encounter Details Date Type Department Care Team (Late st Contact Info) Description 10/22/2022 MyC Medical Advice [facility] [address] [place], [place] [address] [place] [address] [facility] 300 [place] [address] Social History Tobacco Use Types Packs/Day Years [...] How often do you attend baptist or jew serv ices? Never 09/22/2021 Do [...] Date Recorded PHQ-2 Score 1 10/11/2022 [facility] [...] a skilled nursing (including now)? No 09/22/2021 [place] Depression Scale Answer Date Recorded [place] [...] Office Visit [facility] Neurology [facility] [address] [facility], [address] [place] [phone] Genny Hyman PAUcheC [facility] Epilepsy [facility] 57[address] [facility] 255 [place] [address] [place] [address] [facility] 300 [place] [address] 02/06/2024 10:00 AM CDT Office Visit [facility] [address] [phone] Neil [place] MD 500 [place] [address] 03/06/2024 3:00 PM CDT Office Visit [facility] Heart [facility] [address] [facility] [address] [place] [phone] Radha Lomeli APRN TUNGSTEN TENDER [address] [facility] [address] [place] [address] 03/07/2024 9:00 AM CDT Hospital Encounter [facility] [address] [facility] 5th [place] [address] Rocky Zepeda DO 500 [place], [place] 944065 03/07/2024 9:00 AM CDT - 03/07/2024 9:30 AM CDT Surgery [place] [address] [facility] 5th [place] [phone] Rocky Zepeda DO 500 [place], [place] 274715 Esophagoscopy, gastroscopy, duodenoscopy (EGD), combined Scheduled Procedures [...] documented as of this encounter Care Teams Package Yarns Drying Machine Operator Relationship Specialty Start Date End Date Marija Edgar APRN CNP PCP - General Nurse Practitioner 04/30/20 04/14/23 Esha Grimm PA-C [address] [place] [address] PCP - General Family Medicine 05/04/23 Lita Oseguera Personal Advocate & Liaison (PAL) 02/28/20 03/27/23 Marija Edgar APRN TUNGSTEN TENDER Assigned PCP 06/08/20 04/29/23 Keisha Dotson MD [address] [place] [address] Assigned Neuroscience Provider 06/04/20 04/01/23 Diana Desir, [facility] [place] [address] Pharmacist Pharmacist 04/17/21 Rain Galaviz PA-C [address] [place] [address] [address] [place] [address] Physician Customer Account Specialist Dermatology 04/28/21 Tavia Wyatt MD [address] [place] [address] [address] [place] [address] Dermatology 07/14/21 Erica Farrell APRN TUNGSTEN TENDER [address] [place] [address] Nurse Practitioner Cardiovascular Disease 09/09/21 Rich Barrett MD [address] [place] [address] 513215 Physician Ophthalmology 01/21/22 Neil [place] MD [address] [place] [address] [phone] Dermatology 02/24/22 Diana Desir, [facility] [place] [address] Assigned MTM Pharmacist 04/07/22 Livan Sharif MD [address] [place] 339625 Cardiovascular Disease 05/14/22 Catherine Cm MD [address] [place] [address] Cardiovascular Disease 07/21/22 Valery Veronica, PAUcheC [address] [place] [address] 163025 Physician Customer Account Specialist Dermatology 07/21/22 Catherine Cm MD [address] [place] 675815 Assigned Heart and Vascular Provider 07/24/22 11/05/22 Brea Quinn APRN TUNGSTEN TENDER [address] [place] [address] [phone] Nurse Practitioner Dermatology 09/21/22 Brea Quinn APRN TUNGSTEN TENDER [address] [place] [address] 018942 Assigned Surgical Provider 10/09/22 [place] [address] [facility] [place] [address] Assigned Musculoskeletal Provider 10/09/22 Livan Sharif MD [address] [place] 597745 Assigned Heart and Vascular Provider 11/06/22 11/12/22 Catherine Cm MD [address] [place] 14[address]15 Assigned Heart and Vascular Provider 11/13/22 05/27/23 Sydnie Martinez RN Personal Advocate & Liaison (PAL) Family Medicine 03/28/23 07/31/23 Alfonso Renteria MD [address] [facility] [address] 200 [place], [place] 163896 Assigned Neuroscience Provider 04/02/23 Cheng Todd PA-C [address] [place] [address] [phone] Assigned PCP 04/30/23 07/15/23 Radha Lomeli, HORTICULTURALIST TUNGSTEN TENDER [address] [place], [place] 346055 Assigned Heart and Vascular Provider 05/28/23 Jelena David OD [address] [facility] [place] [address] Ophthalmology 06/15/23 Pao Joseph, VJ Personal Advocate & Liaison (PAL) Nurse 08/01/23 11/07/23 Esha Grimm PA-C [address] [place] [address] Assigned PCP 07/16/23 Valery Veronica PA-C 909 [place], [place] 107875 Physician Customer Account Specialist Dermatology 09/19/23 Rey Tay MD 909 [place] [address] MD Gastroenterology 09/20/23 Rocky Zepeda DO [address] [place] [address] 586445 Physician Gastroenterology 09/20/23 Philip Dumont MD [address] [place] [address] 410905 Physician Ophthalmology 09/22/23 Meredith Carrera PA-C [address] [place] [address] Assigned Gastroenterology Provider 11/01/23 Neil [place] MD [address] [address] Dermatology 11/02/23 [place] [address] [place] [address] Neurological Surgery 12/26/23 documented as of this encounter
--- OUTSIDE RECORDS SUMMARY | 2024-01-07 18:13 | XMS_ITS | Encounter Summary ---
Author Organization [place] Address [address] [place] [address] Care Team Providers Care Kit Planner Name Role Phone Lita Oseguera Unavailable Unavailable Marija Edgar APRN RN SURGERY Primary Care Provider U Marija Bella APRN RN SURGERY Unavailable Unavail able Keisha Dotson MD Unavailable [phone] [facility] Unavailable [phone] Rain Galaviz PA-C Unavailable [phone] Tavia Wyatt MD Unavailable Unavailable Erica Farrell APRN RN SURGERY Unavailable Rich Barrett MD Unavailable [phone] Neil Kent MD Unavailable Diana Desir [facility] Unavailable [phone] Livan Sharif MD Unavailable Catherine Cm MD Unavailable + Vlaery Veronica PA-C Unavailable [phone] Catherine Cm MD Unavailable + Brea Quinn APRN RN SURGERY Unavailable [phone] Brea Quinn APRN RN SURGERY Unavailable [phone] Jose Francisco Johnson MD Unavailable Livan Sharif MD Unavailable Catherine Cm MD Unavailable + Sydnie Martinez RN Unavailable Unavailable Alfonso Renteria MD Unavailable [phone] Esha GrimmC Primary Care Provider [phone] Cheng Todd PA-C Unavailable Armani Radha Stovall APRN RN SURGERY Unavailable Jelena David OD Unavailable [phone] Pao Joseph RN Unavailable Unavailable Esha Grimm-C Unavailable [phone] Valery Veronica PA-C Unavailable Rey Tay MD Unavailable Rocky Zepeda DO Unavailable Philip Dumont MD Unavailable Meredith Carrera-C Unavailable Neil [place] MD Unavailable Juan Pablo Emmanuel MD Unavailable [phone] Reason for Visit * Reason Onset Date Comments Prior Auth - Medication 10/12/2022 Lidocain e (LIDOCARE) 4 % Patch - EPA DENIED Encounter Details Date Type Department Care Team (Late st Contact Info) Description 10/12/2022 Telephone [facility] [address] [place] [address] Lauren Claudio PA-C [address] [place] [address] Prior Auth - Medication (Lidocaine [...] How often do you attend buddhism or mosque serv ices? Never 09/22/2021 Do [...] Answer Date Recorded PHQ-2 Score 1 10/11/2022 [facility] - Occupational Stress [...] a care home (including now)? No 09/22/2021 [place] Depression Scale Answer Date Recorded [place] Depression Score 5 01/14/2021 Last EPDS Self [...] In the last 10 days, have delvin bateman been in contact with someone who was [...] Description 01/09/2024 10:15 AM CDT Office Visit [facility] Neurology Clinics - [address], [address] [place] [address] Genny Hyman PA-C [facility] Epilepsy Care 5775 [facility] 255 [place], [place] 933026 [place] [address] [address] [place], [place] 2432[address] 02/06/2024 10:00 AM CDT Office [facility] [address] [phone] Neil [place] MD 500 [place] [address] 03/06/2024 3:00 PM CDT Office Visit [facility] Heart [facility] [address] [facility] [address] [place] [phone] Radha Lomeli E, SHOTBLAST OPERATOR RN SURGERY [address] [place], [place] 6[address]85 03/07/2024 9:00 AM CDT Hospital Encounter [facility] [address] [place] [address] 5th [place] [address] Rocky Zepeda DO 500 [place] [address] 03/07/2024 9:00 AM CDT - 03/07/2024 9:30 AM CDT Surgery [address] [phone] Rocky Zepeda DO 500 [place], [place] 880805 Esophagoscopy, gastroscopy, duodenoscopy (EGD), combined Scheduled Procedures Name Priority Associated Diagnoses Date/Ti ak ESOPHAGOGASTRODUODENOSCOPY Eosinophilic esophagitis Esophageal dysphagia 03/07/2024 9:00 [...] documented as of this encounter Care Teams Kit Planner Relationship Specialty Start Date End Date Marija Edgar APRN RN SURGERY PCP - General Nurse Practitioner 04/30/20 04/14/23 Esha Grimm PA-C [address] [place] [address] PCP - General Family Medicine 05/04/23 Lita Oseguera Personal Advocate & Liaison (PAL) 02/28/20 03/27/23 Marija Edgra APRN RN SURGERY Assigned PCP 06/08/20 04/29/23 Keisha Dotson MD 909 [place] [address] Assigned Neuroscience Provider 06/04/20 04/01/23 Diana Desir, [facility] 3033 [place] [address] Pharmacist Pharmacist 04/17/21 Rain Galaviz PA-C [address] [place] [address] [place] [address] Physician Lens Blocker Dermatology 04/28/21 Tavia Wyatt MD [address] [place] [address] [place] [address] Dermatology 07/14/21 Erica Farrell APRN RN SURGERY 6405 [facility] [address] [place] [address] Nurse Practitioner Cardiovascular Disease 09/09/21 Rich Barrett MD 516 [facility] 9A [place] [address] Physician Ophthalmology 01/21/22 Neil Kent MD 500 [place], [place] 323875 MD Dermatology 02/24/22 Diana Desir, [facility] 3033 [place], [place] 545416 Assigned MTM Pharmacist 04/07/22 Livan Sharif MD [address], [address] [place], [place] 796405 Cardiovascular Disease 05/14/22 Catherine Cm MD [address] 801685 Cardiovascular Disease 07/21/22 Valery Veronica, PA-C 9 [place], [place] 520[address] Physician Lens Blocker Dermatology 07/21/22 Catherine Cm MD [address] [place], [place] 930985 Assigned Heart and Vascular Provider 07/24/22 11/05/22 Brea Quinn APRN RN SURGERY 500 [place], [place] 442855 Nurse Practitioner Dermatology 09/21/22 Brea Quinn, ARLENE RN SURGERY [address] [place] 635822 Assigned Surgical Provider 10/09/22 [place] [address] [address] Assigned Musculoskeletal Provider 10/09/22 Livan Sharif MD [address], [facility] [address] [place] 802445 Assigned Heart and Vascular Provider 11/06/22 11/12/22 Catherine Cm MD [address] [facility] [address] [place] [address] Assigned Heart and Vascular Provider 11/13/22 05/27/23 JuanSydnie malik, RN Personal Advocate & Liaison (PAL) Family Medicine 03/28/23 07/31/23 Alfonso Renteria MD 5775 [facility] 200 [place], [place] 077296 Assigned Neuroscience Provider 04/02/23 Cheng Todd PA-C [address] [place] [address] [phone] Assigned PCP 04/30/23 07/15/23 Radha Lomeli APRN RN SURGERY [address] [place] [address] Assigned Heart and Vascular Provider 05/28/23 Jelena David OD [address] [facility] [place] [address] Ophthalmology 06/15/23 Pao Joseph, RN Personal Advocate & Liaison (PAL) Nurse 08/01/23 11/07/23 Esha Grimm PA-C [address] [place] [phone] Assigned PCP 07/16/23 Valery Veronica PA-C [address] [place] [place] [address] 025555 Physician Lens Blocker Dermatology 09/19/23 Rey Tay MD [address] [place] [address] 565425 MD Gastroenterology 09/20/23 Rocky Zepeda DO [address] [place] [address] 586115 Physician Gastroenterology 09/20/23 Philip Dumont MD [address] [place] [address] 260905 Physician Ophthalmology 09/22/23 Meredith Carrera PA-C [address] [place] [address] 631245 Assigned Gastroenterology Provider 11/01/23 Neil [place] MD [address] [address] Dermatology 11/02/23 [place] [address] [place] [address] Neurological Surgery 12/26/23 documented as of this encounter
--- OUTSIDE RECORDS SUMMARY | 2024-01-07 18:13 | XMS_ITS | Encounter Summary ---
Author Organization [place] Address [address] [place] [address] Care Team Providers Care Java Programmer Analyst Name Role Phone Lita Oseguera Unavailable Unavailable Marija Edgar APRN RADIOLOGY MANAGER Primary Care Provider U Marija Bella APRN RADIOLOGY MANAGER Unavailable Unavail able Keisha Dotson MD Unavailable [phone] Diana Desir [facility] Unavailable [phone] Rain Galaviz PA-C Unavailable Tavia Wyatt MD Unavailable Unavailable Erica Farrell APRN RADIOLOGY MANAGER Unavailable Rich Barrett MD Unavailable [phone] Neil [place] MD Unavailable Diana Desir [facility] Unavailable [phone] Jelena David OD Unavailable [phone] Livan Sharif MD Unavailable Catherine Cm MD Unavailable + Valery Veronica PA-C Unavailable [phone] Catherine Cm MD Unavailable + Johnny Murillo MD Unavailable [phone] Brea Quinn VENEER SLICING MACHINE OPERATOR RADIOLOGY MANAGER Unavailable Brea Quinn VENEER SLICING MACHINE OPERATOR RADIOLOGY MANAGER Unavailable Jose Francisco Johnson MD Unavailable Livan Sharif MD Unavailable Catherine Cm MD Unavailable + Sydnie Martinez RN Unavailable Unavailable Alfonso Renteria MD Unavailable [phone] Esha Grimm PA-C Primary Care Provider Cheng Todd PA-C Unavailable Radha Lomeli VENEER SLICING MACHINE OPERATOR RADIOLOGY MANAGER Unavailable Jelena David Radha OD Unavailable [phone] Pao Joseph RN Unavailable Unavailable Esha Grimm PA-C Unavailable [phone] Valery Veronica PA-C Unavailable Rey Tay MD Unavailable Rocky Zepeda DO Unavailable Philip Dumont MD Unavailable Meredith Carrera PA-C Unavailable Neil Kent MD Unavailable Juan Pablo Emmanuel MD Unavailable Encounter Details Date Type Department Care Team (Late st Contact Info) Description 10/06/2022 [facility] Medical Advice [facility] 6401 [facility] [place] [address] Brea Quinn, VENEER SLICING MACHINE OPERATOR RADIOLOGY MANAGER 6401 [facility] [place] [address] Social History Tobacco Use Types Packs/Day Years [...] How often do you attend religion or jain serv ices? Never 09/22/2021 Do you belong to any clubs o r organizations such as religion groups, unions, fraternal or athletic groups, [...] points; Administer PHQ-9 if positive 1 10/10/2022 [facility] - Occupational Stress [...] in a halfway (including now)? No 09/22/2021 [place] Depression Scale Answer Date Recorded [place] Depression Score 5 01/14/2021 Last EPDS Self [...] Description 01/09/2024 10:15 AM CDT Office Visit [facility] Neurology [facility] [address] [address], [address] [place] [phone] [address]enny Hyman PA-C [facility] Epilepsy [facility] 5775 [facility] 255 [place], [place] 260046 [place] [address] [facility] 300 [place], [place] 151037 02/06/2024 10:00 AM CDT Office Visit [facility] [address] [phone] Neil Kent MD 500 [place], [place] 643885 03/06/2024 3:00 PM CDT Office Visit [facility] [address] [facility] [address] [place] [address] Radha Lomeli, ARLENE RADIOLOGY MANAGER 6405 [facility] [address] [place], [place] 7[address]155 03/07/2024 9:00 AM CDT Hospital Encounter [facility] 9[address] [facility] [address] 5th [place] [phone] Rocky Zepeda DO 500 [place], [place] 049925 03/07/2024 9:00 AM CDT - 03/07/2024 9:30 AM CDT Surgery [facility] 9[address] [facility] [address] 5th [place] [phone] Rocky Zepeda DO 500 [place], [place] 313195 Esophagoscopy, gastroscopy, duodenoscopy (EGD), combined Scheduled Procedures [...] Depression Total Score: 5 08/27/19 1:14 PM SERVICE LOSS CONTROL CONSULTANT documented as of this encounter Care Teams Java Programmer Analyst Relationship Specialty Start Date End Date Marija Edgar APRN RADIOLOGY MANAGER PCP - General Nurse Practitioner 04/30/20 04/14/23 Esha Grimm PA-C [address] [place] [address] PCP - General Family Medicine 05/04/23 Lita Oseguera Personal Advocate & Liaison (PAL) 02/28/20 03/27/23 Marija Edgar APRN RADIOLOGY MANAGER Assigned PCP 06/08/20 04/29/23 Keisha Dotson MD 909 [place] [address] Assigned Neuroscience Provider 06/04/20 04/01/23 Diana Desir, [facility] 3033 [place] [address] Pharmacist Pharmacist 04/17/21 Rain Galaviz PA-C [address] [place] [address] [address] [place] [address] Physician Computer Forensic Examiner Dermatology 04/28/21 Tavia Wyatt MD [address] [place] [address] [place] [address] Dermatology 07/14/21 Erica Farrell APRN RADIOLOGY MANAGER [address] [place] [address] Nurse Practitioner Cardiovascular Disease 09/09/21 Rich Barrett MD 516 [facility] 9A [place], [place] 862275 Physician Ophthalmology 01/21/22 Neil Kent MD 500 [place], [place] 229145 Dermatology 02/24/22 Diana Desir, [facility] [address] [place] [address] Assigned MTM Pharmacist 04/07/22 Jelena David OD [facility]5 [facility] [place] [address] Assigned Surgical Provider 05/08/22 10/08/22 Livan Sharif MD [address], [facility] [address] [place] [address] Cardiovascular Disease 05/14/22 Catherine Cm MD [address] [facility] [address] [place] [address] Cardiovascular Disease 07/21/22 Valery Veronica, PA-C [address] [place] [address] 916145 Physician Computer Forensic Examiner Dermatology 07/21/22 Catherine Cm MD [address] [facility] [place], [place] 561225 Assigned Heart and Vascular Provider 07/24/22 11/05/22 Johnny Murillo MD [facility] [address] 122584 Assigned Musculoskeletal Provider 08/14/22 10/08/22 Brea Quinn APRN RADIOLOGY MANAGER [address] [place] [address] 245765 Nurse Practitioner Dermatology 09/21/22 Brea Quinn APRN RADIOLOGY MANAGER [address] [place] [address] [place] 556882 Assigned Surgical Provider 10/09/22 [place] [address] [place] [address] Assigned Musculoskeletal Provider 10/09/22 Livan Sharif MD [address], [facility] [address] [place] 231185 Assigned Heart and Vascular Provider 11/06/22 11/12/22 Catherine Cm MD [address] [place] [address] Assigned Heart and Vascular Provider 11/13/22 05/27/23 Sydnie Martinez RN Personal Advocate & Liaison (PAL) Family Medicine 03/28/23 07/31/23 Alfonso Renteria MD 5775 [facility] 200 [place] [address] Assigned Neuroscience Provider 04/02/23 Cheng Todd PA-C [address] [place] [address] [phone] Assigned PCP 04/30/23 07/15/23 Radha Lomeli APRN RADIOLOGY MANAGER [address] [place] [address] Assigned Heart and Vascular Provider 05/28/23 Jelena David OD [facility]5 [facility] [place] [address] Ophthalmology 06/15/23 Pao Joseph, VJ Personal Advocate & Liaison (PAL) Nurse 08/01/23 11/07/23 Esha Grimm PA-C [address] [place] [address] Assigned PCP 07/16/23 Valery Veronica PA-C [address] [place] [address] Physician Computer Forensic Examiner Dermatology 09/19/23 Rey Tay MD [address] [place] [address] MD Gastroenterology 09/20/23 Rocky Zepeda DO [address] [place] [address] Physician Gastroenterology 09/20/23 Philip Dumont MD [address] [place] [address] Physician Ophthalmology 09/22/23 Meredith Carrera PA-C [address] [place] [address] Assigned Gastroenterology Provider 11/01/23 Neil Kent MD [address] [address] Dermatology 11/02/23 [place] [address] [address] Neurological Surgery 12/26/23 documented as of this encounter
--- OUTSIDE RECORDS SUMMARY | 2024-01-07 18:13 | XMS_ITS | Encounter Summary ---
Author Organization [facility] Address [address] [place] [address] Care Team Providers Care Street Light Servicer Name Role Phone Lita Oseguera Unavailable Unavailable Marija Edgar APRN HYBRID CORN BREEDER Primary Care Provider U Marija Bella APRN HYBRID CORN BREEDER Unavailable Unavail able Keisha Dotson MD Unavailable [phone] [facility] Unavailable [phone] Rain Galaviz PA-C Unavailable [phone] Tavia Wyatt MD Unavailable Unavailable Erica Farrell APRN HYBRID CORN BREEDER Unavailable Rich Barrett MD Unavailable [phone] Neil Kent MD Unavailable Diana Desir [facility] Unavailable [phone] Livan Sharif MD Unavailable Catherine Cm MD Unavailable + Valery Veronica PA-C Unavailable [phone] Catherine Cm MD Unavailable + Brea Quinn APRN HYBRID CORN BREEDER Unavailable [phone] Brea Quinn APRN HYBRID CORN BREEDER Unavailable [phone] Jose Francisco Johnson MD Unavailable Livan Sharif MD Unavailable Catherine Cm MD Unavailable + Sydnie Martinez RN Unavailable Unavailable Alfonso Renteria MD Unavailable [phone] Esha Grimm PA-C Primary Care Provider Cheng Todd PA-C Unavailable Armani Radha Stovall APRN HYBRID CORN BREEDER Unavailable Jelena David OD Unavailable Pao Joseph RN Unavailable Unavailable Esha Grimm PA-C Unavailable [phone] Valery Veronica PA-C Unavailable [phone] Rey Tay MD Unavailable Rocky Zepeda DO Unavailable Philip Dumont MD Unavailable [phone] Meredith Carrera PA-C Unavailable [phone] Neil Kent MD Unavailable Juan Pablo Emmanuel MD Unavailable [phone] Encounter Details Date Type Department Care Team (Late st Contact Info) Description 10/22/[address] [facility] [id number] [place] [phone] Lauren Claudio PA-C [address] [place] [address] Social History Tobacco Use Types [...] How often do you attend rastafarian or mandaeism serv ices? Never 09/22/2021 Do you belong [...] Answer Date Recorded PHQ-2 Score 1 10/11/2022 [facility] of Occupat ional Health - Occupational Stress [...] a senior living (including now)? No 09/22/2021 [place] Depression Scale Answer Date Recorded [place] Depression Score 5 01/14/2021 Last EPDS Self [...] Office Visit [facility] Neurology [facility] [address] [facility], [address] [place] [phone] Genny Hyman PA-C [facility] Epilepsy [facility] 5775 [facility] [address] [place], [place] 732926 [place] [address] [address] [place] [address] 02/06/2024 10:00 AM CDT Office Visit [facility] [address] [phone] Neil Kent MD 500 [place], [place] 409035 03/06/2024 3:00 PM CDT Office Visit [facility] Heart [facility] [address] [facility] [address] [place] [phone] Radha Lomeli APRN HYBRID CORN BREEDER [address] [facility] [address] [place] [address] 03/07/2024 9:00 AM CDT Hospital Encounter [facility] [address] [place] [address] 5th [place] [phone] Rocky Zepeda DO 500 [place], [place] 141295 03/07/2024 9:00 AM CDT - 03/07/2024 9:30 AM CDT Surgery [facility] [address] [place] [address] 5th [place] [phone] Rocky Zepeda DO 500 [place], [place] 032635 Esophagoscopy, gastroscopy, duodenoscopy (EGD), combined Scheduled Procedures [...] documented as of this encounter Care Teams Street Light Servicer Relationship Specialty Start Date End Date Marija Edgar APRN HYBRID CORN BREEDER PCP - General Nurse Practitioner 04/30/20 04/14/23 Esha Grimm PA-C [address] [place] [phone] PCP - General Family Medicine 05/04/23 Lita Oseguera Personal Advocate & Liaison (PAL) 02/28/20 03/27/23 Marija Edgar APRN HYBRID CORN BREEDER Assigned PCP 06/08/20 04/29/23 Keisha Dotson MD [address] [place] [address] Assigned Neuroscience Provider 06/04/20 04/01/23 Diana Desir, [facility] [address] [facility] [place] [address] Pharmacist Pharmacist 04/17/21 Rain Galaviz PA-C [address] [place] [address] [address] [place] [address] Physician Chemical Engineering Intern Dermatology 04/28/21 Tavia Wyatt MD [address] [place] [address] [place] [address] Dermatology 07/14/21 Erica Farrell APRN HYBRID CORN BREEDER [address] [place] 4[address]95 Nurse Practitioner Cardiovascular Disease 09/09/21 Rich Barrett MD [address] 939315 Physician Ophthalmology 01/21/22 Neil Kent MD 500 [place], [place] 324535 Dermatology 02/24/22 Diana Desir, [facility] [address] [place] [address] Assigned MTM Pharmacist 04/07/22 Livan Sharif MD [address] [place] 608335 Cardiovascular Disease 05/14/22 Catherine Cm MD [address] [place] [address] Cardiovascular Disease 07/21/22 Valery Veronica, PA-C 909 [place] [address] Physician Chemical Engineering Intern Dermatology 07/21/22 Catherine Cm MD [address] [place] [address] Assigned Heart and Vascular Provider 07/24/22 11/05/22 Brea Quinn APRN HYBRID CORN BREEDER [address] [place] [address] 992315 Nurse Practitioner Dermatology 09/21/22 Brea Quinn APRN HYBRID CORN BREEDER [address] [place] [address] Assigned Surgical Provider 10/09/22 [place] [address] [address] Assigned Musculoskeletal Provider 10/09/22 Livan Sharif MD [address], [address] [place] [address] Assigned Heart and Vascular Provider 11/06/22 11/12/22 Catherine Cm MD [address] [place] 365755 Assigned Heart and Vascular Provider 11/13/22 05/27/23 Sydnie Martinez RN Personal Advocate & Liaison (PAL) Family Medicine 03/28/23 07/31/23 Alfonso Renteria MD 5775 [facility] 200 [place] [address] Assigned Neuroscience Provider 04/02/23 Cheng Todd PA-C [address] [place] [address] Assigned PCP 04/30/23 07/15/23 Radha Lomeli APRN HYBRID CORN BREEDER 6405 [facility] [address] [place] [address] Assigned Heart and Vascular Provider 05/28/23 Jelena David OD [address] [place] [address] Ophthalmology 06/15/23 Pao Joseph, VJ Personal Advocate & Liaison (PAL) Nurse 08/01/23 11/07/23 Esha Grimm PA-C [address] [place] [address] Assigned PCP 07/16/23 Valery Veronica PA-C [address] [place] [address] 035615 Physician Chemical Engineering Intern Dermatology 09/19/23 Rey Tay MD [address] [place] [address] Gastroenterology 09/20/23 Rocky Zepeda DO [address] [place] [address] Physician Gastroenterology 09/20/23 Philip Dumont MD [address] [place] [address] Physician Ophthalmology 09/22/23 Meredith Carrera PA-C 9 [place] [address] Assigned Gastroenterology Provider 11/01/23 Neil Kent MD [address] [address] Dermatology 11/02/23 [place] [address] [place] [address] Neurological Surgery 12/26/23 documented as of this encounter
--- OUTSIDE RECORDS SUMMARY | 2024-01-07 18:13 | XMS_ITS | Encounter Summary ---
Author Organization [facility] Address [address] [place] [address] Care Team Providers Care Supervisor [employer] Name Role Phone Lita Oseguera Unavailable Unavailable Marija Edgar APRN FOOD SALES CLERK Primary Care Provider U Marija Bella APRN FOOD SALES CLERK Unavailable Unavail able Keisha Dotson MD Unavailable Diana Desir [facility] Unavailable Rain Galaviz-C Unavailable Tavia Wyatt MD Unavailable Unavailable Erica Farrell APRN FOOD SALES CLERK Unavailable Rich Barrett MD Unavailable [phone] Neil Kent MD Unavailable Roney Story DPM Unavailable [phone] Diana Desir [facility] Unavailable [phone] Jelena David OD Unavailable Livan Sharif MD Unavailable Livan Sharif MD Unavailable Catherine Cm MD Unavailable + Valery Veronica PA-C Unavailable [phone] Catherine Cm MD Unavailable + Johnny Murillo MD Unavailable [phone] Brea Quinn NAIL PROFESSIONAL FOOD SALES CLERK Unavailable [phone] Brea Quinn NAIL PROFESSIONAL FOOD SALES CLERK Unavailable Jose Francisco Johnson MD Unavailable Livan Sharif MD Unavailable Catherine Cm MD Unavailable + Sydnie Martinez RN Unavailable Unavailable Alofnso Renteria MD Unavailable Esha Grimm PA-C Primary Care Provider Cheng Todd PA-C Unavailable Radha Lomeli NAIL PROFESSIONAL FOOD SALES CLERK Unavailable [phone] Jelena David OD Unavailable [phone] Pao Joseph RN Unavailable Unavailable Esha Grimm PA-C Unavailable [phone] Valery Veronica PA-C Unavailable [phone] Rey Tay MD Unavailable Rocky Zepeda DO Unavailable Philip Dumont MD Unavailable [phone] Meredith Carrera PA-C Unavailable Neil Kent MD Unavailable Juan Pablo Emmanuel MD Unavailable Encounter Details Date Type Department Care Team (Late st Contact Info) Description 07/20/2022 [facility] Heart [address] [address] Pao Donahue, RN Social History Tobacco Use Types Packs/Day [...] How often do you attend baptism or gnosticism serv ices? Never 09/22/2021 Do you belong [...] points; Administer PHQ-9 if positive 1 05/13/2022 [facility] of Occupat ional Health - Occupational [...] a group home (including now)? No 09/22/2021 [place] Depression Scale Answer Date Recorded [place] Depression Score 5 01/14/2021 Last EPDS Self [...] Coronavirus/COVID-19? 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 documented as of this encounter Plan of Treatment Upcoming Encounters Date Type Department Care Team (Late st Contact Info) Description 01/09/2024 10:15 AM CDT Office Visit [facility] Neurology [facility] [address] [facility], [address] [place] [phone] Genny Hyman PA-C [facility] Epilepsy Care 5775 [facility] 255 [place], [place] 337086 [place] [address] [address] [place], [place] 412307 02/06/2024 10:00 AM CDT Office Visit [facility] [address] [phone] Neil Kent MD 500 [place], [place] 9[address]695 03/06/2024 3:00 PM CDT Office Visit [facility] Heart [facility] [address] [facility] [address] [place] [phone] Radha Lomeli, ARLENE FOOD SALES CLERK [address] [facility] [address] [place], [place] 2747[address] 03/07/2024 9:00 AM CDT Hospital Encounter [facility] [address] [facility] [address] 5th [place] [phone] Rocky Zepeda DO 500 [place], [place] 9[address]995 03/07/2024 9:00 AM CDT - 03/07/2024 9:30 AM CDT Surgery [facility] 909 [facility] 5th [place] [phone] Rocky Zepeda DO 500 [place] [address] Esophagoscopy, gastroscopy, duodenoscopy (EGD), combined Scheduled Procedures Name Priority Associated Diagnoses Date/Ti wy ESOPHAGOGASTRODUODENOSCOPY Eosinophilic esophagitis Esophageal dysphagia 03/07/2024 9:00 [...] as of this encounter Care Teams Supervisor [employer] Can Supply Relationship Specialty Start Date End Date Marija Edgar APRN FOOD SALES CLERK PCP - General Nurse Practitioner 04/30/20 04/14/23 Esha Grimm PA-C [address] [place] [address] PCP - General Family Medicine 05/04/23 Lita Oseguera Personal Advocate & Liaison (PAL) 02/28/20 03/27/23 Marija Edgar APRN FOOD SALES CLERK Assigned PCP 06/08/20 04/29/23 Keisha Dotson MD 9 [place] [address] Assigned Neuroscience Provider 06/04/20 04/01/23 Diana Desir, [facility] [address] [place] [address] Pharmacist Pharmacist 04/17/21 Rain Galaviz PA-C [address] [place] [address] [address] [place] [address] Physician Clay Preparation Supervisor Dermatology 04/28/21 Tavia Wyatt MD [address] [place] [address] [address] [place] [address] Dermatology 07/14/21 Erica Farrell APRN FOOD SALES CLERK [address] [place] [address] Nurse Practitioner Cardiovascular Disease 09/09/21 Rich Barrett MD 516 [facility] 9A [place], [place] 3[address] Physician Ophthalmology 01/21/22 Neil Kent MD 500 [place], [place] 056795 Dermatology 02/24/22 Roney Story DPM [address] [facility] [address] [place] [address] Assigned Musculoskeletal Provider 03/20/22 08/13/22 Diana Desir, [facility] [address] [place] [address] Assigned MTM Pharmacist 04/07/22 Jelena David OD [address] [place] [address] Assigned Surgical Provider 05/08/22 10/08/22 Livan Sharif MD [address] [place] [address] Cardiovascular Disease 05/14/22 Livan Sharif MD [address], [address] [place] [address] Assigned Heart and Vascular Provider 06/12/22 07/23/22 Catherine Cm MD [address] [place], [place] 2032[address] Cardiovascular Disease 07/21/22 Valery Veronica PAUcheC [address] [place] [place] [address] Physician Clay Preparation Supervisor Dermatology 07/21/22 Catherine Cm MD [address] [place], [place] [address]135 Assigned Heart and Vascular Provider 07/24/22 11/05/22 Johnny Murillo MD [facility] [address] 632334 Assigned Musculoskeletal Provider 08/14/22 10/08/22 Brea Quinn APRN FOOD SALES CLERK [address] [place] [address] 423835 Nurse Practitioner Dermatology 09/21/22 Brea Quinn APRN FOOD SALES CLERK [address] [place] [address] Assigned Surgical Provider 10/09/22 [place] [address] [facility] 300 [place] [address] Assigned Musculoskeletal Provider 10/09/22 Livan Sharif MD [address], [facility] [address] [place] 853215 Assigned Heart and Vascular Provider 11/06/22 11/12/22 Catherine Cm MD [address] [place] 822555 Assigned Heart and Vascular Provider 11/13/22 05/27/23 Sydnie Martinez, RN Personal Advocate & Liaison (PAL) Family Medicine 03/28/23 07/31/23 Alfonso Renteria MD 5775 [facility] 200 [place] [address] Assigned Neuroscience Provider 04/02/23 Cheng Todd PA-C [address] [place] [address] Assigned PCP 04/30/23 07/15/23 Radha Lomeli APRN FOOD SALES CLERK [address] [place] [address] Assigned Heart and Vascular Provider 05/28/23 Jelena David OD [address] [place] [address] Ophthalmology 06/15/23 Pao Joseph, RN Personal Advocate & Liaison (PAL) Nurse 08/01/23 11/07/23 Esha Grimm PA-C [address] [place] [address] Assigned PCP 07/16/23 Valery Veronica PA-C [address] [place] [place] [address] 525205 Physician Clay Preparation Supervisor Dermatology 09/19/23 Rey Tay MD [address] [place] [address] 356155 MD Gastroenterology 09/20/23 Rocky Zepeda DO [address] [place] [address] 471685 Physician Gastroenterology 09/20/23 Philip Dumont MD [address] [place] [address] 532185 Physician Ophthalmology 09/22/23 Meredith Carrera PA-C [address] [place] [address] Assigned Gastroenterology Provider 11/01/23 Neil Kent MD [address] [address] Dermatology 11/02/23 Juan [place] [address] [place] [address] [place] [address] Neurological Surgery 12/26/23 documented as of this encounter
--- OUTSIDE RECORDS SUMMARY | 2024-01-07 18:13 | XMS_ITS | Encounter Summary ---
Author Organization [facility] Address [address] [place] [address] Care Team Providers Care Wireless Technician Name Role Phone Lita Oseguera Unavailable Unavailable Marija Edgar APRN MANAGER FIELD INVESTIGATIONS Primary Care Provider U Marija Bella APRN MANAGER FIELD INVESTIGATIONS Unavailable Unavail able Keisha Dotson MD Unavailable Diana Desir [facility] Unavailable Rain Galaviz-C Unavailable Tavia Wyatt MD Unavailable Unavailable Erica Farrell APRN MANAGER FIELD INVESTIGATIONS Unavailable Rich Barrett MD Unavailable [phone] Neil Kent MD Unavailable Roney Story DPM Unavailable [phone] Diana Desir [facility] Unavailable [phone] Jelena David OD Unavailable Livan Sharif MD Unavailable Livan Sharif MD Unavailable Catherine Cm MD Unavailable + Valery Veronica PA-C Unavailable [phone] Catherine Cm MD Unavailable + Johnny Murillo MD Unavailable [phone] Brea Quinn ENVIRONMENTAL HEALTH SPECIALIST MANAGER FIELD INVESTIGATIONS Unavailable [phone] Brea Quinn ENVIRONMENTAL HEALTH SPECIALIST MANAGER FIELD INVESTIGATIONS Unavailable [phone] Jose Francisco Johnson MD Unavailable Livan Sharif MD Unavailable Catherine Cm MD Unavailable + Sydnie Martinez RN Unavailable Unavailable Alfonso Renteria MD Unavailable [phone] Esha Grimm PA-C Primary Care Provider Cheng Todd PA-C Unavailable Radha Lomeli ENVIRONMENTAL HEALTH SPECIALIST MANAGER FIELD INVESTIGATIONS Unavailable Jelena David OD Unavailable Pao Joseph RN Unavailable Unavailable Esha Grimm PA-C Unavailable [phone] Valery Veronica PA-C Unavailable Rey Tay MD Unavailable Rocky Zepeda DO Unavailable Philip Dumont MD Unavailable Meredith Carrera PA-C Unavailable Neil Kent MD Unavailable Juan Pablo Emmanuel MD Unavailable [phone] Encounter Details Date Type Department Care Team (Late st Contact Info) Description 07/20/2022 [facility] Heart [facility] [address] [place] [address] Livan Sharif MD [address] [place] [address] Social History Tobacco Use Types [...] often do you attend sikhism or christianity serv ices? Never 09/22/2021 Do [...] Administer PHQ-9 if positive 1 05/13/2022 [facility] of Occupat ional [facility] - Occupational Stress Questionnaire Answer [...] or slept in a penitentiary (including now)? No 09/22/2021 [place] Depression Scale Answer Date Recorded [place] Depression Score 5 01/14/2021 Last EPDS Self [...] Coronavirus/COVID-19? No / Unsure 07/23/2022 6:45 AM GRADES 1 THRU 5 TEACHER documented as of this encounter Plan of Treatment Upcoming Encounters Date Type Department Care Team (Late st Contact Info) Description 01/09/2024 10:15 AM CDT Office Visit [facility] Neurology [facility] [address] [facility], [address] [place] [phone] Hyman PA-C [facility] Epilepsy [facility] 5775 [facility] 255 [place], [place] 6[address] [place] [address] [facility] 300 [place], [place] 8[address]87 02/06/2024 10:00 AM CDT Office Visit [facility] [address] [phone] Neil Kent MD 500 [place], [place] [address]26[address] 03/06/2024 3:00 PM CDT Office Visit [facility] Heart [facility] [address] [place] [phone] Radha Lomeli, ENVIRONMENTAL HEALTH SPECIALIST MANAGER FIELD INVESTIGATIONS [address] [place], [place] [address] 03/07/2024 9:00 AM CDT Hospital Encounter [facility] 909 [facility] 5th [place] [phone] Rocky Zepeda DO 500 [place] [address] 03/07/2024 9:00 AM CDT - 03/07/2024 9:30 AM CDT [address] 5th [place] [phone] Rocky Zepeda, DO 500 [place] [address] Esophagoscopy, gastroscopy, duodenoscopy (EGD), combined Scheduled Procedures [...] documented as of this encounter Care Teams Wireless Technician Relationship Specialty Start Date End Date Marija Edgar APRN MANAGER FIELD INVESTIGATIONS PCP - General Nurse Practitioner 04/30/20 04/14/23 Esha Grimm PA-C [address] [place] [address] PCP - General Family Medicine 05/04/23 Lita Oseguera Personal Advocate & Liaison (PAL) 02/28/20 03/27/23 Marija Edgar APRN MANAGER FIELD INVESTIGATIONS Assigned PCP 06/08/20 04/29/23 Keisha Dotson MD 909 [place] [address] Assigned Neuroscience Provider 06/04/20 04/01/23 Diana Desir [facility] [address] [place] [address] Pharmacist Pharmacist 04/17/21 Rain Galaviz PA-C [address] [place] [address] [address] [place] [address] Physician Electric Scoop Operator Dermatology 04/28/21 Tavia Wyatt MD [address] [place] [address] [address] [facility] [place] [address] Dermatology 07/14/21 Erica Farrell APRN MANAGER FIELD INVESTIGATIONS [address] [place] [address] Nurse Practitioner Cardiovascular Disease 09/09/21 Rich Barrett MD [address] [place] [address] [address] [place], [place] 430485 Physician Ophthalmology 01/21/22 Neil Kent MD [address] [place] [address] 857585 Dermatology 02/24/22 [place] [address] [facility] 300 [place], [place] 325587 Assigned Musculoskeletal Provider 03/20/22 08/13/22 Diana Desir [facility] [address] [place] [address] Assigned MTM Pharmacist 04/07/22 Jelena David OD [address] [place] [address] [place] K[place] [address] Assigned Surgical Provider 05/08/22 10/08/22 Livan Sharif MD [address], [facility] [address] [place] [address] Cardiovascular Disease 05/14/22 Livan Sharif MD [address], [facility] [address] [place] [address] Assigned Heart and Vascular Provider 06/12/22 07/23/22 Catherine Cm MD [address] [facility] [place] [address] Cardiovascular Disease 07/21/22 Valery Veronica, PA-C [address] [place] [address] Physician Electric Scoop Operator Dermatology 07/21/22 Catherine Cm MD [address] [facility] [address] [place] [address] Assigned Heart and Vascular Provider 07/24/22 11/05/22 Johnny Murillo MD [facility] [address] [address] Assigned Musculoskeletal Provider 08/14/22 10/08/22 Brea Quinn APRN MANAGER FIELD INVESTIGATIONS 500 [place] [address] Nurse Practitioner Dermatology 09/21/22 Brea Qiunn APRN MANAGER FIELD INVESTIGATIONS [address] [facility] [place] [address] Assigned Surgical Provider 10/09/22 [place] [address] [facility] 300 [place] [address] Assigned Musculoskeletal Provider 10/09/22 Livan Sharif MD [address], [facility] [address] [place] [address]88[address] Assigned Heart and Vascular Provider 11/06/22 11/12/22 Catherine Cm MD [address] [facility] [address] [place] [address] Assigned Heart and Vascular Provider 11/13/22 05/27/23 Sydnie Martinez, RN Personal Advocate & Liaison (PAL) Family Medicine 03/28/23 07/31/23 Alfonso Renteria MD 5775 [facility] 200 [place] [address] Assigned Neuroscience Provider 04/02/23 Cheng Todd PA-C [address] [place] [address] [id number] Assigned PCP 04/30/23 07/15/23 Radha Lomeli APRN MANAGER FIELD INVESTIGATIONS [address] [place] 299715 Assigned Heart and Vascular Provider 05/28/23 Jelena David OD [address] [place] [address] MD Ophthalmology 06/15/23 Pao Joseph, RN Personal Advocate & Liaison (PAL) Nurse 08/01/23 11/07/23 Esha Grimm PA-C [address] [place] [address] Assigned PCP 07/16/23 Valery Veronica PA-C [address] [place] [address] Physician Electric Scoop Operator Dermatology 09/19/23 Rey Tay MD [address] [place] [address] MD Gastroenterology 09/20/23 Rocky Zepeda DO [address] [place] [address] 297155 Physician Gastroenterology 09/20/23 Philip Dumont MD [address] [place] [address] 571915 Physician Ophthalmology 09/22/23 Meredith Carrera PA-C [address] [place] [address] 313755 Assigned Gastroenterology Provider 11/01/23 Neil Kent MD [address] [phone] Dermatology 11/02/23 [place] [address] [place] [facility] [place] [address] Neurological Surgery 12/26/23 documented as of this encounter
--- OUTSIDE RECORDS SUMMARY | 2024-01-07 18:13 | XMS_ITS | Encounter Summary ---
Author Organization [facility] Address [address] [place] [address] Care Team Providers Care Physician Obstetrician Name Role Phone Lita Oseguera Unavailable Unavailable Marija Edgar APRN ACCOUNT MANAGEMENT ASSISTANT Primary Care Provider U Marija Bella APRN ACCOUNT MANAGEMENT ASSISTANT Unavailable Unavail able Keisha Dotson MD Unavailable [phone] Diana Desir [facility] Unavailable [phone] Rain Galaviz PA-C Unavailable [phone] Tavia Wyatt MD Unavailable Unavailable Erica Farrell APRN ACCOUNT MANAGEMENT ASSISTANT Unavailable Rich Barrett MD Unavailable [phone] Neil Kent MD Unavailable Diana Desir [facility] Unavailable [phone] Livan Sharif MD Unavailable Catherine Cm MD Unavailable + Valery Veronica PA-C Unavailable [phone] Catherine Cm MD Unavailable + Brea Quinn APRN ACCOUNT MANAGEMENT ASSISTANT Unavailable [phone] Brea Quinn APRN ACCOUNT MANAGEMENT ASSISTANT Unavailable [phone] Jose Francisco Johnson MD Unavailable Livan Sharif MD Unavailable Catherine Cm MD Unavailable + Sydnie Martinez RN Unavailable Unavailable Alfonso Renteria MD Unavailable [phone] Esha Grimm PA-C Primary Care Provider Cheng Todd PA-C Unavailable Radha Lomeli APRN ACCOUNT MANAGEMENT ASSISTANT Unavailable Jelena David OD Unavailable [phone] Pao Joseph RN Unavailable Unavailable Esha Grimm PA-C Unavailable [phone] Valery Veronica PA-C Unavailable Rey Tay MD Unavailable Rocky Zepeda DO Unavailable Philip Dumont MD Unavailable Meredith Carrera PA-C Unavailable [phone] Neil Kent MD Unavailable Juan Pablo Emmanuel MD Unavailable [phone] Reason for Visit * Reason Onset Date Comments MyChart Communication 10/27/2022 Encounter Details Date Type Department Care Team (Late st Contact Info) Description 10/27/2022 MyC Medical Advice [facility] [address] [place] [address] Brea Quinn, GROUND OPERATIONS SUPERVISOR ACCOUNT MANAGEMENT ASSISTANT [address] [place] [address] MyChart Communication (/) Social History Tobacco Use Types [...] How often do you attend methodist or druze serv ices? Never 09/22/2021 Do [...] Answer Date Recorded PHQ-2 Score 1 10/11/2022 [facility] [place] [facility] Occupat [facility] - Occupational Stress [...] in a fdc (including now)? No 09/22/2021 [place] Depression Scale Answer Date Recorded [place] Depression Score 5 01/14/2021 Last EPDS Self [...] chart message and advise. Letha Driver RN [facility] [place] [phone] documented in this encounter Plan of Treatment Upcoming Encounters Date Type Department Care Team (Late st Contact Info) Description 01/09/2024 10:15 AM CDT Office Visit [facility] Neurology [facility] [address] [place] [address], [address] [place] [phone] Genny Hyman PA-C [facility] Epilepsy [facility] [address] [facility] 255 [place], [place] 7[address] [place] [address] [facility] [address] [place], [place] [address] 02/06/2024 10:00 AM CDT Office Visit [facility] [address] [phone] Neil Kent MD 500 [place], [place] [address] 03/06/2024 3:00 PM CDT Office Visit [facility] Heart [facility] [address] [facility] [address] [place] [phone] Radha Lomeli APRN ACCOUNT MANAGEMENT ASSISTANT [address] [facility] [address] [place], [place] [address] 03/07/2024 9:00 AM CDT Hospital Encounter [facility] [address] [facility] [address]th [place] [address] Zepeda, DO Rocky 500 [place] [address] 03/07/2024 9:00 AM CDT - 03/07/2024 9:30 AM CDT [facility] [address] [facility] [address] [place] [phone] Rocky Zepeda DO 500 [place] [address] Esophagoscopy, gastroscopy, duodenoscopy (EGD), combined Scheduled Procedures [...] documented as of this encounter Care Teams Physician Obstetrician Relationship Specialty Start Date End Date Marija Edgar APRN ACCOUNT MANAGEMENT ASSISTANT PCP - General Nurse Practitioner 04/30/20 04/14/23 Esha Grimm PA-C [address] [place] [address] PCP - General Family Medicine 05/04/23 Lita Oseguera Personal Advocate & Liaison (PAL) 02/28/20 03/27/23 Marija Edgar APRN ACCOUNT MANAGEMENT ASSISTANT Assigned PCP 06/08/20 04/29/23 Keisha Dotson MD [address] [place] [address] Assigned Neuroscience Provider 06/04/20 04/01/23 Diana Desir, [facility] [address] [place], [place] [address] [place] [address] Pharmacist Pharmacist 04/17/21 Rain Galaviz PA-C [address] [place] [address] [address] [place] [address] Physician [employer] Dermatology 04/28/21 Tavia Wyatt MD [address] [place] [address] DR [facility] [place] [address] Dermatology 07/14/21 Erica Farrell APRN ACCOUNT MANAGEMENT ASSISTANT [address] [place] [address] Nurse Practitioner Cardiovascular Disease 09/09/21 Rich Barrett MD [address] [address] Physician Ophthalmology 01/21/22 Neil Kent MD [address] [place] [address] [id number] Dermatology 02/24/22 Diana Desir, [facility] [address] [place] [address] Assigned MTM Pharmacist 04/07/22 Livan Sharif MD [address] [place] [address] Cardiovascular Disease 05/14/22 Catherine Cm MD [address] [place] [address] Cardiovascular Disease 07/21/22 Valery Veronica, PAUcheC [address] [place] [address] Physician [employer] Dermatology 07/21/22 Catherine Cm MD [address] [place] 394[address] Assigned Heart and Vascular Provider 07/24/22 11/05/22 Brea Quinn APRN ACCOUNT MANAGEMENT ASSISTANT [address] [place] [address]415 Nurse Practitioner Dermatology 09/21/22 Brea Quinn APRN ACCOUNT MANAGEMENT ASSISTANT [address] [place] [address] [place], [place] 345132 Assigned Surgical Provider 10/09/22 [place] [address] [place] [address] [place] [id number] Assigned Musculoskeletal Provider 10/09/22 Livan Sharif MD [address] [place] [address] Assigned Heart and Vascular Provider 11/06/22 11/12/22 Catherine Cm MD [address] [place] [address] Assigned Heart and Vascular Provider 11/13/22 05/27/23 Sydnie Martinez RN Personal Advocate & Liaison (PAL) Family Medicine 03/28/23 07/31/23 Alfonso Renteria MD [address] [facility] [address] [place] [address] Assigned Neuroscience Provider 04/02/23 Cheng Todd PA-C [address] [place] [address] [phone] Assigned PCP 04/30/23 07/15/23 Radha Lomeli APRN ACCOUNT MANAGEMENT ASSISTANT [address] [place] [address] Assigned Heart and Vascular Provider 05/28/23 Jelena David OD [address] [facility] [place] [address] Ophthalmology 06/15/23 Pao Joseph, VJ Personal Advocate & Liaison (PAL) Nurse 08/01/23 11/07/23 Esha Grimm PA-C [address] [place] [address] Assigned PCP 07/16/23 Valery Veronica PA-C [address] [place], [place] 9[address] Physician [place] [employer] [employer] Dermatology 09/19/23 Rey Tay MD [address] [place] [address] Gastroenterology 09/20/23 Rocky Zepeda DO [address] [place] [address] Physician Gastroenterology 09/20/23 Philip Dumont MD [address] [place] [address] Physician Ophthalmology 09/22/23 Meredith Carrera PAUcheC [address] [place] [address] Assigned Gastroenterology Provider 11/01/23 Neil Kent MD [address] [address] Dermatology 11/02/23 [place] [address] [address] Neurological Surgery 12/26/23 documented as of this encounter
--- OUTSIDE RECORDS SUMMARY | 2024-01-07 18:13 | XMS_ITS | Encounter Summary ---
Author Organization [place] Address [address] [place] [address] Care Team Providers Care College Service Officer Name Role Phone Lita Oseguera Unavailable Unavailable Marija Edgar APRN REGIONAL PROPERTY MANAGER Primary Care Provider U Marija Bella APRN REGIONAL PROPERTY MANAGER Unavailable Unavail able Keisha Dotson MD Unavailable [phone] Diana Desir [facility] Unavailable Rain Galaviz PA-C Unavailable Tavia Wyatt MD Unavailable Unavailable Erica Farrell APRN REGIONAL PROPERTY MANAGER Unavailable Rich Barrett MD Unavailable [phone] Neil Kent MD Unavailable Diana Desir [facility] Unavailable [phone] Jelena David OD Unavailable [phone] Livan Sharif MD Unavailable Catherine Cm MD Unavailable + Valery Veronica PA-C Unavailable [phone] Catherine Cm MD Unavailable + Johnny Murillo MD Unavailable Brea Quinn MAKEUP EDITOR REGIONAL PROPERTY MANAGER Unavailable Brea Quinn MAKEUP EDITOR REGIONAL PROPERTY MANAGER Unavailable Jose Francisco Johnson MD Unavailable Livan Sharif MD Unavailable Catherine Cm MD Unavailable + Sydnie Martinez RN Unavailable Unavailable Alfonso Renteria MD Unavailable [phone] Esha Grimm PA-C Primary Care Provider Cheng Todd PA-C Unavailable Armani Radha Sia MAKEUP EDITOR REGIONAL PROPERTY MANAGER Unavailable Jelena David Radha OD Unavailable Pao Joseph RN Unavailable Unavailable Esha Grimm PA-C Unavailable [phone] Valery Veronica PA-C Unavailable Rey Tay MD Unavailable Rocky Zepeda DO Unavailable Philip Dumont MD Unavailable [phone] Meredith Carrera PA-C Unavailable Neil Kent MD Unavailable Juan Pablo Emmanuel MD Unavailable [phone] Reason for Visit * Reason Onset Date Comments Call Back 09/21/2022 Change of provid er request Encounter Details Date Type Department Care Team (Late st Contact Info) Description 09/21/2022 Telephone [facility] [address], [address] [place] [address] Keisha Dotson MD [address] [place] [address] Call Back (Change of provider request) [...] How often do you attend muslim or baptist serv ices? Never 09/22/2021 Do you belong [...] Answer Date Recorded PHQ-2 Score 2 08/27/2022 [facility] of Occupat ional [facility] - Occupational Stress Questionnaire [...] in a intermediate (including now)? No 09/22/2021 [place] Depression Scale Answer Date Recorded [place] [...] Guan - 09/21/2022 10:47 AM CDT [facility] Center Phone Message May a detailed message be left on voicemail: yes Reason for Call: Other: Change of provider request, Pt would like to be seen with another provider. Please call Pt back at [phone] to scheduled or advise. Action Taken: Message routed to: [facility] Neurology Travel Screening: Not Applicable documented in this encounter Plan of Treatment Upcoming Encounters Date Type Department Care Team (Late st Contact Info) Description 01/09/2024 10:15 AM CDT Office Visit [facility] Neurology Clinics - [address], [address] [place] [address] Genny Hyman PA-C [facility] Epilepsy Care 5775 [facility] 255 [place], [place] 9988[address] [place] [address] [facility] 300 [place], [place] [address] 02/06/2024 10:00 AM CDT Office Visit [facility] [address] [address] Neil Kent MD 500 [place], [place] [address] 03/06/2024 3:00 PM CDT Office Visit [facility] Heart [facility] [address] [facility] [address] [place] [address] Radha Lomeli APRN REGIONAL PROPERTY MANAGER [address] [place] [address] 03/07/2024 9:00 AM CDT Hospital Encounter [address]th [place] [phone] Rocky Zepeda DO 500 [place] [address] 03/07/2024 9:00 AM CDT - 03/07/2024 9:30 AM CDT Surgery [address] [phone] Rocky Zepeda DO 500 [place], [place] [address] Esophagoscopy, gastroscopy, duodenoscopy (EGD), combined Scheduled Procedures [...] Depression Total Score: 5 08/27/19 1:14 PM UMBRELLA MENDER documented as of this encounter Care Teams College Service Officer Relationship Specialty Start Date End Date Marija Edgar APRN REGIONAL PROPERTY MANAGER PCP - General Nurse Practitioner 04/30/20 04/14/23 Esha Grimm PA-C [address] [place] [address] PCP - General Family Medicine 05/04/23 Lita Oseguera Personal Advocate & Liaison (PAL) 02/28/20 03/27/23 Marija Edgar APRN REGIONAL PROPERTY MANAGER Assigned PCP 06/08/20 04/29/23 Keisha Dotson MD [address] [place] [address] Assigned Neuroscience Provider 06/04/20 04/01/23 Diana Desir, [facility] [address] [place] [address] Pharmacist Pharmacist 04/17/21 Rain Galaviz PA-C [address] [place] [address] [address] [place] [address] Physician Information Clerk Dermatology 04/28/21 Tavia Wyatt MD [address] [place] [address] [address] [place] [address] Dermatology 07/14/21 Erica Farrell APRN REGIONAL PROPERTY MANAGER [address] [facility] [address] [place] [address] Nurse Practitioner Cardiovascular Disease 09/09/21 Rich Barrett MD [address] [phone] Physician Ophthalmology 01/21/22 Neil Ketn MD [address] [place] [address] Dermatology 02/24/22 Diana Desir, [facility] [address] [place], [place] 7[address] Assigned MTM Pharmacist 04/07/22 Jelena David OD [address] [facility] [address] [place] [id number] Assigned Surgical Provider 05/08/22 10/08/22 Livan Sharif MD [address], [facility]00 [place], [place] [address] Cardiovascular Disease 05/14/22 Catherine Cm MD [address] [address] Cardiovascular Disease 07/21/22 Valery Veronica, PA-C [address] [place] [address] 242365 Physician Information Clerk Dermatology 07/21/22 Catherine Cm MD [address] 328975 Assigned Heart and Vascular Provider 07/24/22 11/05/22 Johnny Murillo MD [facility] [address] 637584 Assigned Musculoskeletal Provider 08/14/22 10/08/22 Brea Quinn APRN REGIONAL PROPERTY MANAGER [address] [place] [address] Nurse Practitioner Dermatology 09/21/22 Brea Quinn APRN REGIONAL PROPERTY MANAGER 6401 [facility] [place] [address] Assigned Surgical Provider 10/09/22 [place] [address] [facility] [address] [place] [address] Assigned Musculoskeletal Provider 10/09/22 Livan Sharif MD [address] [facility] [address] [place] [address] Assigned Heart and Vascular Provider 11/06/22 11/12/22 Catherine Cm MD [address] [facility] [place] [address] Assigned Heart and Vascular Provider 11/13/22 05/27/23 Sydnie Martinez RN Personal Advocate & Liaison (PAL) Family Medicine 03/28/23 07/31/23 Alfonso Renteria MD 5775 [facility] 200 [place], [place] 9940[address] Assigned Neuroscience Provider 04/02/23 Cheng Todd PA-C [address] [place] [address] Assigned PCP 04/30/23 07/15/23 Radha Lomeli APRN REGIONAL PROPERTY MANAGER [address] [place] [address] Assigned Heart and Vascular Provider 05/28/23 Jelena David OD [address] [facility] [place] [address] MD Ophthalmology 06/15/23 Pao Joseph, RN Personal Advocate & Liaison (PAL) Nurse 08/01/23 11/07/23 Esha Grimm PA-C [address] [place] [address] Assigned PCP 07/16/23 Valery Veronica PA-C [address] [place] [address] 348445 Physician Information Clerk Dermatology 09/19/23 Rey Tay MD [address] [place] [address] Gastroenterology 09/20/23 Rocky Zepeda DO [address] [place] [address] 367365 Physician Gastroenterology 09/20/23 Philip Dumont MD [address] [place] [address] 194165 Physician Ophthalmology 09/22/23 Meredith Carrera PA-C [address] [place] [address] 015735 Assigned Gastroenterology Provider 11/01/23 Neil Kent MD [address] 840730 Dermatology 11/02/23 [place] [address] [place] [address] Neurological Surgery 12/26/23 documented as of this encounter
--- OUTSIDE RECORDS SUMMARY | 2024-01-07 18:14 | XMS_ITS | Encounter Summary ---
Author Organization [facility] Address [address] [place] [address] Care Team Providers Care Software Engineering Associate Manager Name Role Phone Lita Oseguera Unavailable Unavailable Marija Edgar APRN CLASSROOM COORDINATOR Primary Care Provider U Marija Bella APRN CLASSROOM COORDINATOR Unavailable Unavail able Keisha Dotson MD Unavailable [phone] Galo Burrell MD Unavailable Unavailable Diana Desir [facility] Unavailable Rain Galaviz PA-C Unavailable Summer Lara MD Unavailable [phone] Tavia Wyatt MD Unavailable Unavailable Johnny Murlilo MD Unavailable Erica Farrell APRN CLASSROOM COORDINATOR Unavailable Tavia Wyatt MD Unavailable Unavailable Diana Desir [facility] Unavailable Rich Barrett MD Unavailable [phone] Neil Kent MD Unavailable Roney Story DPM Unavailable [phone] Erica Farrell SOLDERING MACHINE FEEDER CLASSROOM COORDINATOR Unavailable Diana Desir [facility] Unavailable [phone] Frankie, Jelena Radha OD Unavailable Galo Burrell MD Unavailable Unavailable Livan Sharif MD Unavailable + Livan Sharif MD Unavailable + IsCatherine hobbs MD Unavailable + Valery Veronica PA-C Unavailable [phone] Catherine Cm MD Unavailable + Johnny Murillo MD Unavailable [phone] Brea Quinn SOLDERING MACHINE FEEDER CLASSROOM COORDINATOR Unavailable [phone] Brea Quinn SOLDERING MACHINE FEEDER CLASSROOM COORDINATOR Unavailable [phone] Jose Francisco Johnson MD Unavailable Livan Sharif MD Unavailable + Catherine Cm MD Unavailable + Sydnie Martinez RN Unavailable Unavailable Alfonso Renteria MD Unavailable Esha Grimm PA-C Primary Care Provider Cheng Todd PA-C Unavailable Radha Lomeli SOLDERING MACHINE FEEDER CLASSROOM COORDINATOR Unavailable [phone] Jelena David OD Unavailable [phone] Pao Joseph RN Unavailable Unavailable Esha Grimm PA-C Unavailable [phone] Valery Veronica PA-C Unavailable [phone] Rey Tay MD Unavailable Rocky Zepeda DO Unavailable Philip Dumont MD Unavailable [phone] Meredith Carrera PA-C Unavailable [phone] Neil Kent MD Unavailable Juan Pablo Emmanuel MD Unavailable Encounter Details Date Type Department Care Team (Late st Contact Info) Description 03/09/2022 MyC Medical Advice [address] [address] Abby Dye Social History Tobacco Use Types [...] How often do you attend restorationist or synagogue serv ices? Never 09/22/2021 Do [...] Recorded PHQ-2 Score 2 12/18/2021 [facility] - Occupational Stress Questionnaire Answer [...] in a longterm (including now)? No 09/22/2021 Agency Depression Scale Answer Date Recorded Agency Depression Score 5 01/14/2021 Last EPDS Self [...] Office Visit [facility] Neurology [facility] [address] [place] [address], [address] [place] [phone]enny Hyman PA-C [facility] Epilepsy [facility] 5775 [facility] 255 [place], [place] [address] [place] [address] [facility] [address] [place], [place] [address] 02/06/2024 10:00 AM CDT Office Visit [facility] [address] [address] Neil Kent MD 500 [place], [place] 6[address] 03/06/2024 3:00 PM CDT Office Visit [facility] Heart [facility] [address] [facility] [address] [place] [phone] Radha Lomeli APRN CLASSROOM COORDINATOR 6[address] [facility] [address] [place], [place] [address] 03/07/2024 9:00 AM CDT Hospital Encounter [facility] 909 [facility] 5th [place] [phone] Rocky Zepeda DO 500 [place] [address] 03/07/2024 9:00 AM CDT - 03/07/2024 9:30 AM CDT Surgery [facility] 909 [facility] 5th [place] [phone] Rocky Zepeda DO 500 [place], [place] [address] Esophagoscopy, gastroscopy, duodenoscopy (EGD), combined Scheduled Procedures Name Priority Associated Diagnoses Date/Ti nc ESOPHAGOGASTRODUODENOSCOPY Eosinophilic esophagitis Esophageal dysphagia 03/07/2024 9:00 AM CDT documented as of this encounter Visit Diagnoses Not on filedocumented in this encounter Additional Health Concerns Infection Onset Date Last Indicated Resolved Time Rule Out COVID-19 04/26/2022 04/26/2022 04/26/2022 6:47 AM CDT Rule Out COVID-19 05/17/2022 05/17/2022 05/17/2022 10:20 PM MILLING SUPERVISOR Rule Out COVID-19 06/09/2022 06/09/2022 06/09/2022 9:35 AM MILLING SUPERVISOR COVID-19 06/09/2022 06/09/2022 06/30/2022 11:4 1 PM MILLING SUPERVISOR Rule Out COVID-19 11/10/2022 11/10/2022 11/11/2022 12:17 PM CDT Rule Out COVID-19 03/07/2023 03/07/2023 03/07/2023 1:20 PM CDT Rule Out COVID-19 12/26/2023 12/26/2023 12/26/2023 9:50 AM CDT Assessment Noted Time PHQ-9 Depression Total Score: 2 12/19/19 2:50 PM CDT documented as of this encounter Care Teams Software Engineering Associate Manager Relationship Specialty Start Date End Date Marija Edgar APRN CLASSROOM COORDINATOR PCP - General Nurse Practitioner 04/30/20 04/14/23 Esha Grimm PA-C [address] [place] [address] PCP - General Family Medicine 05/04/23 Lita Oseguera Personal Advocate & Liaison (PAL) 02/28/20 03/27/23 Marija Edgar APRN CLASSROOM COORDINATOR Assigned PCP 06/08/20 04/29/23 Keisha Dotson MD [address]09 [place] [address] Assigned Neuroscience Provider 06/04/20 04/01/23 Galo Burrell MD Assigned Heart and Vascular Provider 10/05/20 04/02/22 [facility] [address] [place] [address] Pharmacist Pharmacist 04/17/21 Rain Galaviz PA-C [address] [place] [address] [place] [address] Physician Learning And Development Specialist Dermatology 04/28/21 Summer Lara MD [address] [place], [place] 0632[address] Assigned OBGYN Provider 05/31/21 9 2 Tavia Wyatt MD [address] [place] [address] Dermatology 07/14/21 Johnny Murillo MD [address] [place] [address] Assigned Musculoskeletal Provider 08/30/21 03/17/22 Erica Farrell APRN CLASSROOM COORDINATOR [address] [facility] [address] [place] [address] Nurse Practitioner Cardiovascular Disease 09/09/21 Tavia Wyatt MD Assigned Surgical Provider 11/29/21 05/07/22 Diana Desir, [facility] 3033 [place] [address] Assigned MTM Pharmacist 01/02/22 Rich Barrett MD 516 [facility] 9A [place] [address] Physician Ophthalmology 01/21/22 Neil Kent MD 500 [place], [place] [address] Dermatology 02/24/22 Roney Story DPM [address] [facility] [address] [place], [place] [address]187 Assigned Musculoskeletal Provider 03/20/22 08/13/22 Erica Farrell APRN CLASSROOM COORDINATOR 1700 [place] [address] Assigned Heart and Vascular Provider 04/03/22 04/16/22 Diana Desir, [facility] 3033 [place] [address] Assigned MTM Pharmacist 04/07/22 Jelena David OD [address] [facility] [place] [place] [address] Assigned Surgical Provider 05/08/22 10/08/22 Galo Burrell MD Assigned Heart and Vascular Provider 04/17/22 06/11/22 Livan Sharif MD [address] [place] [address] Cardiovascular Disease 05/14/22 Livan Sharif MD [address] [place] [address] Assigned Heart and Vascular Provider 06/12/22 07/23/22 Catherine Cm MD [address] [place], [place] 85[address] Cardiovascular Disease 07/21/22 Valery Veronica, PAUcheC 909 [place], [place] 5864[address] Physician Learning And Development Specialist Dermatology 07/21/22 Catherine Cm MD [address] [place] [address] Assigned Heart and Vascular Provider 07/24/22 11/05/22 Johnny Murillo MD [address] [facility] [address] [place] [address] Assigned Musculoskeletal Provider 08/14/22 10/08/22 Brea Quinn APRN CLASSROOM COORDINATOR 500 [facility] [address] Nurse Practitioner Dermatology 09/21/22 Brea Quinn APRN CLASSROOM COORDINATOR 6401 [facility] [place] [address] Assigned Surgical Provider 10/09/22 [place] [address] [facility] [address] [place], [place] 110547 Assigned Musculoskeletal Provider 10/09/22 Livan Sharif MD [address], [facility] [address] [place] [address]235 Assigned Heart and Vascular Provider 11/06/22 11/12/22 Catherine Cm MD [address] [facility] [address] [place] [address] Assigned Heart and Vascular Provider 11/13/22 05/27/23 Sydnie Martinez RN Personal Advocate & Liaison (PAL) Family Medicine 03/28/23 07/31/23 Alfonso Renteria MD 5775 [facility] 200 [place] [address] Assigned Neuroscience Provider 04/02/23 Cheng Todd PA-C [address] [place] [address] Assigned PCP 04/30/23 07/15/23 Radha Lomeli APRN CLASSROOM COORDINATOR [address] [place] [address] Assigned Heart and Vascular Provider 05/28/23 Jelena David OD [address] [facility] [place] [place] [address] MD Ophthalmology 06/15/23 Pao Joseph, VJ Personal Advocate & Liaison (PAL) Nurse 08/01/23 11/07/23 Esha Grimm PA-C [address] [place] [phone] Assigned PCP 07/16/23 Valery Veronica PA-C [address] [place] [address]855 Physician Learning And Development Specialist Dermatology 09/19/23 Rey Tay MD [address] [place] [address] 868175 Gastroenterology 09/20/23 Rocky Zepeda DO [address] [place] [address] 661585 Physician Gastroenterology 09/20/23 Philip Dumont MD [address] [place] [address] Physician Ophthalmology 09/22/23 Meredith Carrera PA-C [address] [place] [address] Assigned Gastroenterology Provider 11/01/23 Neil Kent MD [address] [address] Dermatology 11/02/23 [place] [address] [place] [address] [address] Neurological Surgery 12/26/23 documented as of this encounter
--- OUTSIDE RECORDS SUMMARY | 2024-01-07 18:14 | XMS_ITS | Encounter Summary ---
Author Organization [facility] Address [address] [place] [address] Care Team Providers Care Milk Driver Name Role Phone Lita Oseguera Unavailable Unavailable Marija Edgar APRN HOUSE FELLOW Primary Care Provider U Marija Bella APRN HOUSE FELLOW Unavailable Unavail able Keisha Dotson MD Unavailable Galo Burrell MD Unavailable Unavailable Diana Desir [facility] Unavailable [phone] Rain Galaviz PA-C Unavailable Summer Lara MD Unavailable [phone] Tavia Wyatt MD Unavailable Unavailable Johnny Murillo MD Unavailable Erica Farrell APRN HOUSE FELLOW Unavailable Tavia Wyatt MD Unavailable Unavailable Diana Desir [facility] Unavailable Rich Barrett MD Unavailable [phone] Neil Kent MD Unavailable Roney Story DPM Unavailable [phone] Erica Farrell ELECTRIC METER REPAIRER APPRENTICE HOUSE FELLOW Unavailable Diana Desir [facility] Unavailable [phone] Frankie, Jelena Radha OD Unavailable Galo Burrell MD Unavailable Unavailable Livan Sharif MD Unavailable + Livan Sharif MD Unavailable + IsCatherine hobbs MD Unavailable + Valery Veronica PA-C Unavailable [phone] Catherine Cm MD Unavailable + Johnny Murillo MD Unavailable [phone] Brea Quinn ELECTRIC METER REPAIRER APPRENTICE HOUSE FELLOW Unavailable [phone] Brea Quinn ELECTRIC METER REPAIRER APPRENTICE HOUSE FELLOW Unavailable [phone] Jose Francisco Johnson MD Unavailable Livan Sharif MD Unavailable + Catherine Cm MD Unavailable + Sydnie Martinez RN Unavailable Unavailable Alfonso Renteria MD Unavailable Esha Grimm PA-C Primary Care Provider Cheng Todd PA-C Unavailable Radha Lomeli ELECTRIC METER REPAIRER APPRENTICE HOUSE FELLOW Unavailable [phone] Jelena David OD Unavailable [phone] Pao Joseph RN Unavailable Unavailable Esha Grimm PA-C Unavailable [phone] Valery Veronica PA-C Unavailable [phone] Rey Tay MD Unavailable Rocky Zepeda DO Unavailable Philip Dumont MD Unavailable [phone] Meredith Carrera PA-C Unavailable [phone] Neil Kent MD Unavailable Juan Pablo Emmanuel MD Unavailable [phone] Encounter Details Date Type Department Care Team (Late st Contact Info) Description 12/18/2021 Telephone [facility] [address] [place] [address] Lauren Claudio, PAUcheC [address] [place] [address] Social History Tobacco Use Types [...] How often do you attend taoist or christian serv ices? Never 09/22/2021 Do you belong [...] Answer Date Recorded PHQ-2 Score 2 12/18/2021 [facility] [place] [facility] Occupat ional Health - Occupational Stress [...] a group home (including now)? No 09/22/2021 Aldie Depression Scale Answer Date Recorded Aldie Depression Score 5 01/14/2021 Last EPDS Self [...] be reached at: Home number on file [phone] (home) Best Time: ANYTIME Can we leave a detailed message on this number? YES Call taken on 12/18/2021 at 11:01 AM by Amalia Deluca documented in this encounter Plan of Treatment Upcoming Encounters Date Type Department Care Team (Late st Contact Info) Description 01/09/2024 10:15 AM CDT Office Visit [facility] Neurology Clinics - [address], [address] [place] [address] Genny Hyman PA-C [facility] Epilepsy Care 5775 [facility] [address] [place], [place] 507[address] [place] [address] [place] [address] 02/06/2024 10:00 AM CDT Office Visit [facility] [address] [phone] Neil Kent MD 500 [place], [place] 417[address] 03/06/2024 3:00 PM CDT Office Visit [facility] Heart [facility] [address] [place] [phone] Radha Lomeli APRN HOUSE FELLOW [address] [place], [place] [address] 03/07/2024 9:00 AM CDT Hospital Encounter [facility] 909 [facility] 5th [place] [phone] Rocky Zepeda DO 500 [place], [place] 432425 03/07/2024 9:00 AM CDT - 03/07/2024 9:30 AM CDT Surgery [address] [phone] Rocky Zepeda DO 500 [place], [place] [address] Esophagoscopy, gastroscopy, duodenoscopy (EGD), combined Scheduled Procedures [...] Out COVID-19 05/17/2022 05/17/2022 05/17/2022 10:20 PM MANAGED SERVICES CONSULTANT Rule Out COVID-19 06/09/2022 06/09/2022 06/09/2022 9:35 AM MANAGED SERVICES CONSULTANT COVID-19 06/09/2022 06/09/2022 06/30/2022 11:4 1 PM MANAGED SERVICES CONSULTANT Rule Out COVID-19 11/10/2022 11/10/2022 11/11/2022 12:17 PM CDT Rule Out COVID-19 03/07/2023 03/07/2023 03/07/2023 1:20 PM CDT Rule Out COVID-19 12/26/2023 12/26/2023 12/26/2023 9:50 AM CDT Assessment Noted Time PHQ-9 Depression Total Score: 2 12/19/19 2:50 PM CDT documented as of this encounter Care Teams Milk Driver Relationship Specialty Start Date End Date Marija Edgar APRN HOUSE FELLOW PCP - General Nurse Practitioner 04/30/20 04/14/23 Esha Grimm PA-C [address] [place] [phone] PCP - General Family Medicine 05/04/23 Lita Oseguera Personal Advocate & Liaison (PAL) 02/28/20 03/27/23 Marija Edgar APRN HOUSE FELLOW Assigned PCP 06/08/20 04/29/23 Keisha Dotson MD 909 [place] [address] Assigned Neuroscience Provider 06/04/20 04/01/23 Galo Burrell MD Assigned Heart and Vascular Provider 10/05/20 04/02/22 Diana Desir, [facility] 3033 [place] [address] Pharmacist Pharmacist 04/17/21 Rain Galaviz PA-C [address] [place] [address] [place] [address] Physician Radiological Technologist Dermatology 04/28/21 Summer Lara MD [address] [facility] [address] Assigned OBGYN Provider 05/31/21 2 Tavia Wyatt MD [address] [place] [address] Dermatology 07/14/21 Johnny Murillo MD [address] [place] [address] Assigned Musculoskeletal Provider 08/30/21 03/17/22 Erica Farrell APRN HOUSE FELLOW 6405 [facility] [address] [place] [address] Nurse Practitioner Cardiovascular Disease 09/09/21 Tavia Wyatt MD Assigned Surgical Provider 11/29/21 05/07/22 Diana Desir [facility] 3033 [place] [address] Assigned MTM Pharmacist 01/02/22 Rich Barrett MD 516 [facility] [address]A [place], [place] 5260[address] Physician Ophthalmology 01/21/22 Neil Kent MD 500 [place] [address] Dermatology 02/24/22 Roney Story DPM [address] [facility] [address] [place] [address] Assigned Musculoskeletal Provider 03/20/22 08/13/22 Erica Farrell APRN HOUSE FELLOW 1700 [place] [address] Assigned Heart and Vascular Provider 04/03/22 04/16/22 [facility] [address] [place] [address] Assigned MTM Pharmacist 04/07/22 Jelena David OD [address] [facility] [address] Assigned Surgical Provider 05/08/22 10/08/22 Galo Burrell MD Assigned Heart and Vascular Provider 04/17/22 06/11/22 Livan Sharif MD [address] [place] [address] Cardiovascular Disease 05/14/22 Livan Sharif MD [address] [place] [address] Assigned Heart and Vascular Provider 06/12/22 07/23/22 Catherine Cm MD [address] [facility] [place] [address] Cardiovascular Disease 07/21/22 Valery Veronica, PAUcheC [address] [place] [address] 794685 Physician Radiological Technologist Dermatology 07/21/22 Catherine Cm MD [address] [facility] [place] [address] Assigned Heart and Vascular Provider 07/24/22 11/05/22 Johnny Murillo MD [address] [place] [address] Assigned Musculoskeletal Provider 08/14/22 10/08/22 Brea Quinn APRN HOUSE FELLOW [address] [place] [address] 846415 Nurse Practitioner Dermatology 09/21/22 Brea Quinn APRN HOUSE FELLOW [address] [place] [address] Assigned Surgical Provider 10/09/22 [place] [address] [place] [address] Assigned Musculoskeletal Provider 10/09/22 Livan Sharif MD [address], [facility]00 [place] [address] Assigned Heart and Vascular Provider 11/06/22 11/12/22 Catherine Cm MD [address] [facility] [address] [place] [address] Assigned Heart and Vascular Provider 11/13/22 05/27/23 Sydnie Martinez RN Personal Advocate & Liaison (PAL) Family Medicine 03/28/23 07/31/23 Alfonso Renteria MD 5775 [facility] 200 [place], [place] 224546 Assigned Neuroscience Provider 04/02/23 Cheng Todd PA-C [address] [place] [address] [id number] Assigned PCP 04/30/23 07/15/23 Radha Lomeli APRN HOUSE FELLOW 6405 [facility] [address] [place] 478305 Assigned Heart and Vascular Provider 05/28/23 Jelena David OD [address] [facility] [address] [place] [id number] Ophthalmology 06/15/23 Pao Joseph, VJ Personal Advocate & Liaison (PAL) Nurse 08/01/23 11/07/23 Esha Grimm PA-C [address] [place] [address] Assigned PCP 07/16/23 Valery Veronica PA-C [address] [place] [address] Physician Radiological Technologist Dermatology 09/19/23 Rey Tay MD [address] [place] [address] MD Gastroenterology 09/20/23 Rocky Zepeda DO [address] [place] [address] Physician Gastroenterology 09/20/23 Philip Dumont MD [address] [place] [address] Physician Ophthalmology 09/22/23 Meredith Carrera PA-C [address] [place] [address] Assigned Gastroenterology Provider 11/01/23 Neil Kent MD [address] [address] Dermatology 11/02/23 [place] [address] [place] [address] Neurological Surgery 12/26/23 documented as of this encounter
--- OUTSIDE RECORDS SUMMARY | 2024-01-07 18:14 | XMS_ITS | Encounter Summary ---
Author Organization [facility] Address [address] [place] [address] Care Team Providers Care Spinning Frame Fixer Name Role Phone Lita Oseguera Unavailable Unavailable Marija Edgar APRN WEED INSPECTOR Primary Care Provider U Marija Bella APRN WEED INSPECTOR Unavailable Unavail able Keisha Dotson MD Unavailable Diana Desir [facility] Unavailable [phone] Rain Galaviz-C Unavailable [phone] Tavia Wyatt MD Unavailable Unavailable Erica Farrell APRN WEED INSPECTOR Unavailable Rich Barrett MD Unavailable [phone] Neil Kent MD Unavailable Roney Story DPM Unavailable [phone] Diana Desir [facility] Unavailable [phone] Jelena David OD Unavailable Livan Sharif MD Unavailable Livan Sharif MD Unavailable Catherine Cm MD Unavailable + Valery Veronica PA-C Unavailable [phone] Catherine Cm MD Unavailable + Johnny Murillo MD Unavailable [phone] Brea Quinn HOLISTIC HEALTH PRACTITIONER WEED INSPECTOR Unavailable [phone] Brea Quinn HOLISTIC HEALTH PRACTITIONER WEED INSPECTOR Unavailable [phone] Jose Francisco Johnson MD Unavailable Livan Sharif MD Unavailable Catherine Cm MD Unavailable + Sydnie Martinez RN Unavailable Unavailable Alfonso Renteria MD Unavailable [phone] Esha Grimm PA-C Primary Care Provider Cheng Todd PA-C Unavailable Radha Lomeli HOLISTIC HEALTH PRACTITIONER WEED INSPECTOR Unavailable Jelena David OD Unavailable Pao Joseph RN Unavailable Unavailable Esha Grimm PA-C Unavailable [phone] Valery Veronica PA-C Unavailable [phone] Rey Tay MD Unavailable Rocky Zepeda DO Unavailable Philip Dumont MD Unavailable Meredith Carrera PA-C Unavailable Neil Kent MD Unavailable Juan Pablo Emmanuel MD Unavailable Encounter Details Date Type Department Care Team (Late st Contact Info) Description 07/07/2022 [facility] Heart [facility] [address] [place] [address] Livan Sharif MD [address] [place] [address] Social History Tobacco Use Types [...] How often do you attend scientology or congregational serv ices? Never 09/22/2021 Do [...] 1 05/13/2022 [facility] - Occupational Stress Questionnaire Answer [...] a skilled nursing (including now)? No 09/22/2021 [place] Depression Scale Answer Date Recorded [place] Depression Score 5 01/14/2021 Last EPDS Self [...] Coronavirus/COVID-19? No / Unsure 06/25/2022 8:44 AM STAMP MOUNTER documented as of this encounter Plan of Treatment Upcoming Encounters Date Type Department Care Team (Late st Contact Info) Description 01/09/2024 10:15 AM CDT Office Visit [facility] Neurology [facility] [address] [facility], [address] [place] [phone] Genny Hyman PA-C [facility] Epilepsy [facility] [address] [facility] 255 [place], [place] 4767[address] [place] [address] [facility] 300 [place], [place] [address] 02/06/2024 10:00 AM CDT Office Visit [facility] [address] [phone] Neil Kent MD 500 [place], [place] [address] 03/06/2024 3:00 PM CDT Office Visit [facility] Heart [facility] [address] [place] [phone] Radha Lomeli, HOLISTIC HEALTH PRACTITIONER WEED INSPECTOR [address] [place], [place] [address] 03/07/2024 9:00 AM CDT Hospital En[facility] 909 [facility] 5th [place] [phone] Rocky Zepeda DO 500 [place] [address] 03/07/2024 9:00 AM CDT - 03/07/2024 9:30 AM CDT [address] 5th [place] [phone] Rocky Zepeda, DO 500 [place] [address] Esophagoscopy, gastroscopy, duodenoscopy (EGD), combined Scheduled Procedures [...] documented as of this encounter Care Teams Spinning Frame Fixer Relationship Specialty Start Date End Date Marija Edgar APRN WEED INSPECTOR PCP - General Nurse Practitioner 04/30/20 04/14/23 Esha Grimm PA-C [address] [place] [phone] PCP - General Family Medicine 05/04/23 Lita Oseguera Personal Advocate & Liaison (PAL) 02/28/20 03/27/23 Marija Edgar APRN WEED INSPECTOR Assigned PCP 06/08/20 04/29/23 Keisha Dotson MD 909 [place] [address] Assigned Neuroscience Provider 06/04/20 04/01/23 Diana Desir [facility] [address] [place] [address] Pharmacist Pharmacist 04/17/21 Rain Galaviz PA-C [address] [place] [address] [address] [place] [address] Physician Director Industrial Relations Dermatology 04/28/21 Tavia Wyatt MD [address] [place] [address] [address] [facility] [place] [address] Dermatology 07/14/21 Erica Farrell APRN WEED INSPECTOR [address] [place] [address] Nurse Practitioner Cardiovascular Disease 09/09/21 Rich Barrett MD [address] [place] [address] [address] [place], [place] 746[address] Physician Ophthalmology 01/21/22 Neil Kent MD [address] [place] [address] 928915 Dermatology 02/24/22 [place] [address] [facility] 300 [place], [place] 267207 Assigned Musculoskeletal Provider 03/20/22 08/13/22 Diana Desir [facility] [address] [place] [address] Assigned MTM Pharmacist 04/07/22 Jelena David OD [address] [place] [address] [place] [address] Assigned Surgical Provider 05/08/22 10/08/22 Livan Sharif MD [address] [place] [address] Cardiovascular Disease 05/14/22 Livan Sharif MD [address] [place] [address] Assigned Heart and Vascular Provider 06/12/22 07/23/22 Catherine Cm MD [address] [facility] [place] [address] Cardiovascular Disease 07/21/22 Valery Veronica, PA-C [address] [place] [address] Physician Director Industrial Relations Dermatology 07/21/22 Catherine Cm MD [address] [place] [address] Assigned Heart and Vascular Provider 07/24/22 11/05/22 Johnny Murillo MD [facility] [address] [address] Assigned Musculoskeletal Provider 08/14/22 10/08/22 Brea Quinn APRN WEED INSPECTOR 500 [place] [address] Nurse Practitioner Dermatology 09/21/22 Brea Quinn APRN WEED INSPECTOR 64[address] [facility] [place] [address] Assigned Surgical Provider 10/09/22 [place] [address] [facility] 300 [place] [address] Assigned Musculoskeletal Provider 10/09/22 Livan Sharif MD [address] [place] 669385 Assigned Heart and Vascular Provider 11/06/22 11/12/22 Catherine Cm MD [address] [place] [address] Assigned Heart and Vascular Provider 11/13/22 05/27/23 Sydnie Martinez, RN Personal Advocate & Liaison (PAL) Family Medicine 03/28/23 07/31/23 Alfonso Renteria MD [address] [facility] 200 [place] [address] Assigned Neuroscience Provider 04/02/23 Cheng Todd PA-C [address] [place] [address] [id number] Assigned PCP 04/30/23 07/15/23 Radha Lomeli APRN WEED INSPECTOR [address] [place] 288465 Assigned Heart and Vascular Provider 05/28/23 Jelena David OD [address] [place] [address] MD Ophthalmology 06/15/23 Pao Joseph, RN Personal Advocate & Liaison (PAL) Nurse 08/01/23 11/07/23 Esha Grimm PA-C [address] [place] [address] Assigned PCP 07/16/23 Valery Veronica PA-C [address] [place] [address] Physician Director Industrial Relations Dermatology 09/19/23 Rey Tay MD [address] [place] [address] MD Gastroenterology 09/20/23 Rocky Zepeda DO [address] [place] [address] 338165 Physician Gastroenterology 09/20/23 Philip Dumont MD [address] [place] [address] 500335 Physician Ophthalmology 09/22/23 Meredith Carrera PA-C [address] [place] [address] 790325 Assigned Gastroenterology Provider 11/01/23 Neil Kent MD [address] [id number] Dermatology 11/02/23 [place] [address] [place] [address] Neurological Surgery 12/26/23 documented as of this encounter
--- OUTSIDE RECORDS SUMMARY | 2024-01-07 18:14 | XMS_ITS | Encounter Summary ---
Author Organization [facility] Address [address] [place] [address] Care Team Providers Care Ekg Monitor Tech Name Role Phone Lita Oseguera Unavailable Unavailable Marija Edgar APRN MAP COLORER Primary Care Provider U Marija Bella APRN MAP COLORER Unavailable Unavail able Keisha Dotson MD Unavailable [phone] Diana Desir [facility] Unavailable [phone] Rain Galaviz PA-C Unavailable Tavia Wyatt MD Unavailable Unavailable Erica Farrell PUMP SERVICE SUPERVISOR MAP COLORER Unavailable Tavia Wyatt MD Unavailable Unavailable Rich Barrett MD Unavailable [phone] Neil [place] MD Unavailable Roney Story DPM Unavailable [phone] Erica Farrell PUMP SERVICE SUPERVISOR MAP COLORER Unavailable Diana Desir [facility] Unavailable [phone] Jelena David OD Unavailable Galo Burrell MD Unavailable Unavailable Livan Sharif MD Unavailable Livan Sharif MD Unavailable Catherine Cm MD Unavailable + Valery Veronica PA-C Unavailable [phone] Catherine Cm MD Unavailable + Johnny Murillo MD Unavailable [phone] Brea Qiunn PUMP SERVICE SUPERVISOR MAP COLORER Unavailable [phone] Brea Quinn PUMP SERVICE SUPERVISOR MAP COLORER Unavailable [phone] Jose Francisco Johnson MD Unavailable Livan Sharif MD Unavailable Catherine Cm MD Unavailable + Sydnie Martinez RN Unavailable Unavailable Alfonso Renteria MD Unavailable [phone] Esha Grimm PA-C Primary Care Provider Cheng Todd PA-C Unavailable Radha Lomeli PUMP SERVICE SUPERVISOR MAP COLORER Unavailable [phone] Jelena David OD Unavailable [phone] Pao Joseph RN Unavailable Unavailable Esha Grimm PA-C Unavailable [phone] Valery Veronica PA-C Unavailable [phone] Rey Tay MD Unavailable Rocky Zepeda DO Unavailable Philip [place] MD Unavailable Meredith Carrera PA-C Unavailable Neil Kent MD Unavailable Juan Pablo Emmanuel MD Unavailable [phone] Encounter Details Date Type Department Care Team (Late st Contact Info) Description 04/07/2022 [facility] [address] [address] ThangDiana, [facility] [address] [place] [address] Social History Tobacco Use Types Packs/Day Years [...] How often do you attend holiness or moravian serv ices? Never 09/22/2021 Do you belong [...] Answer Date Recorded PHQ-2 Score 2 12/18/2021 [facility] [...] in a longterm (including now)? No 09/22/2021 [place] Depression Scale Answer Date Recorded [place] Depression Score 5 01/14/2021 Last EPDS Self [...] Description 01/09/2024 10:15 AM CDT Office Visit [facility] Neurology [facility] [address] [facility] [place] [phone] Genny Hyman PA-C [facility] Epilepsy Care [address] [facility] [address] [place], [place] [address] [place] [address] [facility] [address] [place], [place] [address] 02/06/2024 10:00 AM CDT Office Visit [facility] [address] [phone] Neil Kent MD 500 [place], [place] [address] 03/06/2024 3:00 PM CDT Office Visit [facility] [address] [facility] [address] [place] [phone] Radha Lomeli APRN MAP COLORER [address] [place], [place] [address] 03/07/2024 9:00 AM CDT Hospital Encounter [facility] 9[address] [facility] [address] 5th [place] [address] Rocky Zepeda DO 500 [place] [address] 03/07/2024 9:00 AM CDT - 03/07/2024 9:30 AM CDT [facility] 909 [facility] [address] 5th [place] [address] Rocky Zepeda DO 500 [place] [address] Esophagoscopy, gastroscopy, duodenoscopy (EGD), combined Scheduled Procedures Name Priority Associated Diagnoses Date/Ti md ESOPHAGOGASTRODUODENOSCOPY Eosinophilic esophagitis Esophageal dysphagia 03/07/2024 9:00 AM CDT documented as of this encounter Visit Diagnoses Not on filedocumented in this encounter Additional Health Concerns Infection Onset Date Last Indicated Resolved Time Rule Out COVID-19 04/26/2022 04/26/2022 04/26/2022 6:47 AM CDT Rule Out COVID-19 05/17/2022 05/17/2022 05/17/2022 10:20 PM FAMILY MEDICINE CHAIR Rule Out COVID-19 06/09/2022 06/09/2022 06/09/2022 9:35 AM FAMILY MEDICINE CHAIR COVID-19 06/09/2022 06/09/2022 06/30/2022 11:4 1 PM FAMILY MEDICINE CHAIR Rule Out COVID-19 11/10/2022 11/10/2022 11/11/2022 12:17 PM CDT Rule Out COVID-19 03/07/2023 03/07/2023 03/07/2023 1:20 PM CDT Rule Out COVID-19 12/26/2023 12/26/2023 12/26/2023 9:50 AM CDT Assessment Noted Time PHQ-9 Depression Total Score: 2 12/19/19 2:50 PM CDT documented as of this encounter Care Teams Ekg Monitor Tech Relationship Specialty Start Date End Date Marija Edgar APRN MAP COLORER PCP - General Nurse Practitioner 04/30/20 04/14/23 Esha Grimm PA-C [address] [place] [phone] PCP - General Family Medicine 05/04/23 Lita Oseguera Personal Advocate & Liaison (PAL) 02/28/20 03/27/23 Marija Edgar APRN MAP COLORER Assigned PCP 06/08/20 04/29/23 Keisha Dotson MD 909 [place] [address] Assigned Neuroscience Provider 06/04/20 04/01/23 Diana Desir [facility] [address] [place], [place] [address] Pharmacist Pharmacist 04/17/21 Rain Galaviz PA-C [address] [place] [address] [address] [place] [address] Physician Security Project Manager Dermatology 04/28/21 Tavia Wyatt MD [address] [place] [address] [address] [place] [address] Dermatology 07/14/21 Erica Farrell APRN MAP COLORER 6[address] [facility] [address] [place] [address] Nurse Practitioner Cardiovascular Disease 09/09/21 Tavia Wyatt MD Assigned Surgical Provider 11/29/21 05/07/22 Rich Barrett MD [address] [address] Physician Ophthalmology 01/21/22 Neil Kent MD 500 [place] [address] Dermatology 02/24/22 Roney Story DPM [address] [facility] [address] [place] [address] Assigned Musculoskeletal Provider 03/20/22 08/13/22 Erica Farrell APRN MAP COLORER 1700 [place] [address] Assigned Heart and Vascular Provider 04/03/22 04/16/22 Diana Desir, [facility] [address] [facility] [place], [place] [address] Assigned MTM Pharmacist 04/07/22 Jelena David OD [address] [facility] [place] [address] Assigned Surgical Provider 05/08/22 10/08/22 Galo Burrell MD Assigned Heart and Vascular Provider 04/17/22 06/11/22 Livan Sharif MD [address] [place] [address] Cardiovascular Disease 05/14/22 Livan Sharif MD [address] [place] 105365 Assigned Heart and Vascular Provider 06/12/22 07/23/22 Catherine Cm MD [address] [place] [address] Cardiovascular Disease 07/21/22 Valery Veronica, PAUcheC 909 [place] [address] Physician Security Project Manager Dermatology 07/21/22 Catherine Cm MD [address] [place] [address] Assigned Heart and Vascular Provider 07/24/22 11/05/22 Johnny Murillo MD [facility] [address] [address] Assigned Musculoskeletal Provider 08/14/22 10/08/22 Brea Quinn APRN MAP COLORER [address] [place] [address] 475575 Nurse Practitioner Dermatology 09/21/22 Brea Quinn APRN MAP COLORER [address] [place] [address] [place] [address] Assigned Surgical Provider 10/09/22 [place] [address] [place] [address] [place] [address] Assigned Musculoskeletal Provider 10/09/22 Livan Sharif MD [address] [place] [address] Assigned Heart and Vascular Provider 11/06/22 11/12/22 Catherine Cm MD [address] [place] 369965 Assigned Heart and Vascular Provider 11/13/22 05/27/23 Sydnie Martinez RN Personal Advocate & Liaison (PAL) Family Medicine 03/28/23 07/31/23 Alfonso Renteria MD 5775 [facility] 200 [place] [address] Assigned Neuroscience Provider 04/02/23 Cheng Todd PA-C [address] [place] [address] [id number] Assigned PCP 04/30/23 07/15/23 Radha Lomeli APRN MAP COLORER [address] [place] [address] Assigned Heart and Vascular Provider 05/28/23 Jelena David OD [address] [facility] [place] [address] Ophthalmology 06/15/23 Pao Joseph RN Personal Advocate & Liaison (PAL) Nurse 08/01/23 11/07/23 Esha Grimm PA-C [address] [place] [phone] Assigned PCP 07/16/23 Valery Veronica PA-C [address] [place] [address] Physician Security Project Manager Dermatology 09/19/23 Rey Tay MD [address] [place] [address] Gastroenterology 09/20/23 Rocky Zepeda DO [address] [place] [address] Physician Gastroenterology 09/20/23 Philip Dumont MD [address] [place] [address] Physician Ophthalmology 09/22/23 Meredith Carrera PA-C [address] [place] [address] Assigned Gastroenterology Provider 11/01/23 Neil Kent MD [address] [address] Dermatology 11/02/23 [place] [address] [place] [address] [address] Neurological Surgery 12/26/23 documented as of this encounter
--- OUTSIDE RECORDS SUMMARY | 2024-01-07 18:14 | XMS_ITS | Encounter Summary ---
Author Organization [place] Address [address] [place] [address] Care Team Providers Care Tooth Cutter Pinion Name Role Phone Lita Oseguera Unavailable Unavailable Marija Edgar APRN HEARING CONSULTANT Primary Care Provider U Marija Bella APRN HEARING CONSULTANT Unavailable Unavail able Keisha Dotson MD Unavailable [phone] Diana Desir [facility] Unavailable Rain Galaviz-C Unavailable [phone] Tavia Wyatt MD Unavailable Unavailable Erica Farrell APRN HEARING CONSULTANT Unavailable Tavia Wyatt MD Unavailable Unavailable Rich Barrett MD Unavailable [phone] Neil Kent MD Unavailable Roney StoryM Unavailable [phone] Diana Desir [facility] Unavailable [phone] Jelena David OD Unavailable Galo Burrell MD Unavailable Unavailable Livan Sharif MD Unavailable Livan Sharif MD Unavailable Catherine Cm MD Unavailable + Valery Veronica PA-C Unavailable [phone] Catherine Cm MD Unavailable + Johnny Murillo MD Unavailable [phone] Brea Quinn OSTOMY NURSE HEARING CONSULTANT Unavailable [phone] Bera Quinn OSTOMY NURSE HEARING CONSULTANT Unavailable [phone] Jose Francisco Johnson MD Unavailable Livan Sharif MD Unavailable Catherine Cm MD Unavailable + Sydnie Martinez RN Unavailable Unavailable Alfonso Renteria MD Unavailable [phone] Esha Grimm PA-C Primary Care Provider Cheng Todd PA-C Unavailable Radha Lomeli OSTOMY NURSE HEARING CONSULTANT Unavailable Jelena David OD Unavailable Pao Joseph RN Unavailable Unavailable sEha Grimm PA-C Unavailable [phone] Valery Veronica PA-C Unavailable [phone] Rey Tay MD Unavailable Rocky Zepeda DO Unavailable Philip Dumont MD Unavailable [phone] Meredith Carrera PA-C Unavailable Neil Kent MD Unavailable Juan Pablo Emmanuel MD Unavailable Encounter Details Date Type Department Care Team (Late st Contact Info) Description 04/20/2022 MyC Medical Advice [facility] Heart [address] [place] [address] Margaret Rendon, RN Social History Tobacco Use [...] How often do you attend moravian or baptism serv ices? Never 09/22/2021 Do [...] Answer Date Recorded PHQ-2 Score 2 12/18/2021 [facility] - Occupational Stress Questionnaire Answer [...] in a mcfp (including now)? No 09/22/2021 [place] Depression Scale Answer Date Recorded [place] Depression Score 5 01/14/2021 Last EPDS Self [...] Description 01/09/2024 10:15 AM CDT Office Visit [facility] Neurology [facility] [address] [facility], [address] [place] [phone] Genny Hyman PA-C [facility] Epilepsy Care [address] [facility] [address] [place], [place] [address] [place] [address] [facility] [address] [place], [place] [address] 02/06/2024 10:00 AM CDT Office Visit [facility] [address] [phone] Neil Kent MD 500 [place], [place] [address] 03/06/2024 3:00 PM CDT Office Visit [facility] Heart [facility] [address] [facility] [address] [place] [phone] Radha Lomeli, OSTOMY NURSE HEARING CONSULTANT [address] [facility] [address] [place], [place] [address] 03/07/2024 9:00 AM CDT Hospital Encounter [facility] [address] [facility] [address] 5th [place] [phone] Rocky Zepeda DO 500 [place], [place] [address] 03/07/2024 9:00 AM CDT - 03/07/2024 9:30 AM CDT [facility] [address] [facility] [address] 5th [place] [address] Rocky Zepeda DO 500 [place] [address] Esophagoscopy, gastroscopy, duodenoscopy (EGD), combined Scheduled Procedures Name Priority Associated Diagnoses Date/Ti tn ESOPHAGOGASTRODUODENOSCOPY Eosinophilic esophagitis Esophageal dysphagia 03/07/2024 9:00 AM CDT documented as of this encounter Visit Diagnoses Not on filedocumented in this encounter Additional Health Concerns Infection Onset Date Last Indicated Resolved Time Rule Out COVID-19 04/26/2022 04/26/2022 04/26/2022 6:47 AM CDT Rule Out COVID-19 05/17/2022 05/17/2022 05/17/2022 10:20 PM FORMS BUILDER Rule Out COVID-19 06/09/2022 06/09/2022 06/09/2022 9:35 AM FORMS BUILDER COVID-19 06/09/2022 06/09/2022 06/30/2022 11:4 1 PM FORMS BUILDER Rule Out COVID-19 11/10/2022 11/10/2022 11/11/2022 12:17 PM CDT Rule Out COVID-19 03/07/2023 03/07/2023 03/07/2023 1:20 PM CDT Rule Out COVID-19 12/26/2023 12/26/2023 12/26/2023 9:50 AM CDT Assessment Noted Time PHQ-9 Depression Total Score: 2 12/19/19 22 2:50 PM CDT documented as of this encounter Care Teams Tooth Cutter Pinion Relationship Specialty Start Date End Date Marija Edgar APRN HEARING CONSULTANT PCP - General Nurse Practitioner 04/30/20 04/14/23 Esha Grimm PA-C [address] [place] [phone] PCP - General Family Medicine 05/04/23 Lita Oseguera Personal Advocate & Liaison (PAL) 02/28/20 03/27/23 Marija Edgar APRN HEARING CONSULTANT Assigned PCP 06/08/20 04/29/23 Keisha Dotson MD 909 [place] [address] Assigned Neuroscience Provider 06/04/20 04/01/23 [facility] [address] [place], [place] [address] Pharmacist Pharmacist 04/17/21 Rain Galaviz PA-C [address] [place] [address] [address] [place] [address] Physician Slab Conditioner Supervisor Dermatology 04/28/21 Tavia Wyatt MD [address] [place] [address] [place] [address] Dermatology 07/14/21 Erica Farrell APRN HEARING CONSULTANT [address] [place] [address] Nurse Practitioner Cardiovascular Disease 09/09/21 Tavia Wyatt MD Assigned Surgical Provider 11/29/21 05/07/22 Rcih Barrett MD [address] 112795 Physician Ophthalmology 01/21/22 Neil Kent MD [address] [place] [address] 497625 Dermatology 02/24/22 [place] [address] [facility] [address] [place], [place] [address] Assigned Musculoskeletal Provider 03/20/22 08/13/22 Diana Desir, [facility] [address] [facility] [place], [place] [address] Assigned MTM Pharmacist 04/07/22 Jelena David OD [address] [facility] [place] [address] Assigned Surgical Provider 05/08/22 10/08/22 Galo Burrell MD Assigned Heart and Vascular Provider 04/17/22 06/11/22 Livan Sharif MD [address] [place] [address] Cardiovascular Disease 05/14/22 Livan Sharif MD [address] [place] [address] Assigned Heart and Vascular Provider 06/12/22 07/23/22 Catherine Cm MD [address] [place] [address] Cardiovascular Disease 07/21/22 Valery Veronica, PAUcheC 909 [place] [address] Physician Slab Conditioner Supervisor Dermatology 07/21/22 Catherine Cm MD [address] [facility] [address] [place] [address] Assigned Heart and Vascular Provider 07/24/22 11/05/22 Johnny Murillo MD [address] 826384 Assigned Musculoskeletal Provider 08/14/22 10/08/22 Brea Quinn APRN HEARING CONSULTANT 500 [place], [place] [phone] Nurse Practitioner Dermatology 09/21/22 Brea Quinn APRN HEARING CONSULTANT 6401 [facility] [place] 332332 Assigned Surgical Provider 10/09/22 [place] [address] [phone] Assigned Musculoskeletal Provider 10/09/22 Livan Sharif MD [address] [facility] [address] [place] [address] Assigned Heart and Vascular Provider 11/06/22 11/12/22 Catherine Cm MD [address] [facility] [address] [place] 114795 Assigned Heart and Vascular Provider 11/13/22 05/27/23 Sydnie Martinez RN Personal Advocate & Liaison (PAL) Family Medicine 03/28/23 07/31/23 Alfosno Renteria MD [address] [facility] [address] [place] [address] Assigned Neuroscience Provider 04/02/23 Cheng Todd PA-C [address] [place] [address] Assigned PCP 04/30/23 07/15/23 Radha Lomeli APRN HEARING CONSULTANT [address] [facility] [address] [place] [address] Assigned Heart and Vascular Provider 05/28/23 Jelena David OD [address] [facility] [place] [address] Ophthalmology 06/15/23 Pao Joseph, VJ Personal Advocate & Liaison (PAL) Nurse 08/01/23 11/07/23 Esha Grimm PA-C [address] [place] [phone] Assigned PCP 07/16/23 Valery Veronica PA-C [address] [place] [address] 846695 Physician Slab Conditioner Supervisor Dermatology 09/19/23 Rey Tay MD [address] [place] [address]605 Gastroenterology 09/20/23 Rocky Zepeda DO [address] [place] [address] 799985 Physician Gastroenterology 09/20/23 Philip Dumont MD 516 [place] [address] Physician Ophthalmology 09/22/23 Meredith Carrera PA-C 909 [place] [address] Assigned Gastroenterology Provider 11/01/23 Neil Kent MD [address] [place] [address] Dermatology 11/02/23 [place] [address] [place] [address] 803547 Neurological Surgery 12/26/23 documented as of this encounter
--- OUTSIDE RECORDS SUMMARY | 2024-01-07 18:14 | XMS_ITS | Encounter Summary ---
Author Organization [place] Address [address] [place] [address] Care Team Providers Care Truck Caterer Name Role Phone Lita Oseguera Unavailable Unavailable aMrija Edgar APRN CHALKER SOLES Primary Care Provider U Marija Bella APRN CHALKER SOLES Unavailable Unavail able Keisha Dotson MD Unavailable [phone] Diana Desir [facility] Unavailable Rain Galaviz-C Unavailable Tavia Wyatt MD Unavailable Unavailable Erica Farrell APRN CHALKER SOLES Unavailable Tavia Wyatt MD Unavailable Unavailable Rich Barrett MD Unavailable [phone] Neil Kent MD Unavailable Roney StoryM Unavailable [phone] Diana Desir [facility] Unavailable [phone] Jelena David OD Unavailable Galo Burrell MD Unavailable Unavailable Livan Sharif MD Unavailable Livan Sharif MD Unavailable Catherine Cm MD Unavailable + Valery Veronica PA-C Unavailable [phone] Catherine Cm MD Unavailable + Johnny Murillo MD Unavailable [phone] Brea Quinn DEPORTATION OFFICER CHALKER SOLES Unavailable [phone] Brea Quinn DEPORTATION OFFICER CHALKER SOLES Unavailable [phone] Jose Francisco Johnson MD Unavailable Livan Sharif MD Unavailable Catherine Cm MD Unavailable + Sydnie Martinez RN Unavailable Unavailable Alfonso Renteria MD Unavailable [phone] Esha Grimm PA-C Primary Care Provider Cheng Todd PA-C Unavailable Radha Lomeli DEPORTATION OFFICER CHALKER SOLES Unavailable Tommy Davidmao Templetone OD Unavailable Pao Joseph RN Unavailable Unavailable Esha Grimm PA-C Unavailable [phone] Valery Veronica PA-C Unavailable [phone] Rey Tay MD Unavailable Rocky Zepeda DO Unavailable Philip Dumont MD Unavailable Meredith Carrera PA-C Unavailable [phone] Neil Kent MD Unavailable Juan Pablo Emmanuel MD Unavailable [phone] Encounter Details Date Type Department Care Team (Late st Contact Info) Description 05/01/2022 [facility] [address] [address] Diana Desir, [facility] 3033 [place] [address] Social History Tobacco Use Types Packs/Day Years [...] How often do you attend judaism or anglican serv ices? Never 09/22/2021 Do you belong [...] Score 2 12/18/2021 [facility] [...] in a mcc (including now)? No 09/22/[address] Depression Scale Answer Date Recorded [address] Depression Score 5 01/14/2021 Last EPDS Self [...] Office Visit [facility] Neurology [facility] [address] [facility], [address] [place] [phone] Genny Hyman PA-C [facility] Epilepsy [facility] 57[address] [facility] 255 [place], [place] [address] [place] [address] [facility] 300 [place], [place] [address] 02/06/2024 10:00 AM CDT Office [facility] [address] [phone] Neil Kent MD 500 [place], [place] [address] 03/06/2024 3:00 PM CDT Office [facility] Heart [facility] [address] [facility] [address] [place] [phone] Radha Lomeli APRN CHALKER SOLES [address] [facility] [address] [place], [place] [address] 03/07/2024 9:00 AM CDT Hospital Encounter [facility] 909 [facility] 5th [place] [phone] Rocky Zepeda DO 500 [place] [address] 03/07/2024 9:00 AM CDT - 03/07/2024 9:30 AM CDT [address] 5th [place] [phone] Rocky Zepeda, DO 500 [place] [address] Esophagoscopy, gastroscopy, duodenoscopy (EGD), combined Scheduled Procedures Name Priority Associated Diagnoses Date/Ti dc ESOPHAGOGASTRODUODENOSCOPY Eosinophilic esophagitis Esophageal dysphagia 03/07/2024 9:00 AM CDT documented as of this encounter Visit Diagnoses Not on filedocumented in this encounter Additional Health Concerns Infection Onset Date Last Indicated Resolved Time Rule Out COVID-19 05/17/2022 05/17/2022 05/17/2022 10:20 PM DUPLICATOR PUNCH OPERATOR Rule Out COVID-19 06/09/2022 06/09/2022 06/09/2022 9:35 AM DUPLICATOR PUNCH OPERATOR COVID-19 06/09/2022 06/09/2022 06/30/2022 11:4 1 PM DUPLICATOR PUNCH OPERATOR Rule Out COVID-19 11/10/2022 11/10/2022 11/11/2022 12:17 PM CDT Rule Out COVID-19 03/07/2023 03/07/2023 03/07/2023 1:20 PM CDT Rule Out COVID-19 12/26/2023 12/26/2023 12/26/2023 9:50 AM CDT Assessment Noted Time PHQ-9 Depression Total Score: 2 12/19/19 22 2:50 PM CDT documented as of this encounter Care Teams Truck Caterer Relationship Specialty Start Date End Date Marija Edgar APRN CNP PCP - General Nurse Practitioner 04/30/20 04/14/23 Esha Grimm PA-C [address] [place] [address] PCP - General Family Medicine 05/04/23 Lita Oseguera Personal Advocate & Liaison (PAL) 02/28/20 03/27/23 Marija Edgar APRN CHALKER SOLES Assigned PCP 06/08/20 04/29/23 Keisha Dotson MD 909 [place] [address] Assigned Neuroscience Provider 06/04/20 04/01/23 [facility] 3033 [place] [address] Pharmacist Pharmacist 04/17/21 Rain Galaviz PA-C [address] [place] [address] [address] [place] [address] Physician Clinical Nutrition Manager Dermatology 04/28/21 Tavia Wyatt MD [address] [place] [address] [address] [facility] [place] [address] Dermatology 07/14/21 Erica Farrell APRN CHALKER SOLES [address] [place] [address] Nurse Practitioner Cardiovascular Disease 09/09/21 Tavia Wyatt MD Assigned Surgical Provider 11/29/21 05/07/22 Rich Barrett MD [address] [phone] Physician Ophthalmology 01/21/22 Neil Kent MD [address] [place] [address] 720735 Dermatology 02/24/22 Roney Story DPM [address] [facility] [address] [place], [place] [address] Assigned Musculoskeletal Provider 03/20/22 08/13/22 Diana Desir, [facility] [address] [facility] [place], [place] [address] Assigned MTM Pharmacist 04/07/22 Jelena David OD [address] [facility] [place] [address] Assigned Surgical Provider 05/08/22 10/08/22 Galo Burrell MD Assigned Heart and Vascular Provider 04/17/22 06/11/22 Livan Sharif MD [address] [place] [address] Cardiovascular Disease 05/14/22 Livan Sharif MD [address] [place] [address] Assigned Heart and Vascular Provider 06/12/22 07/23/22 Catherine Cm MD [address] [place], [place] [address] Cardiovascular Disease 07/21/22 Valery Veronica PAUcheC 909 [place] [address] Physician Clinical Nutrition Manager Dermatology 07/21/22 Catherine Cm MD [address] [place] [address] Assigned Heart and Vascular Provider 07/24/22 11/05/22 Johnny Murillo MD [address] [facility] [address] [place], [place] [address] Assigned Musculoskeletal Provider 08/14/22 10/08/22 Brea Quinn APRN CHALKER SOLES 500 [facility], [place] 9[address] Nurse Practitioner Dermatology 09/21/22 Brea Quinn APRN CHALKER SOLES 64[address] [place] [address] Assigned Surgical Provider 10/09/22 [place] [address] [facility] 300 [place], [place] [address] Assigned Musculoskeletal Provider 10/09/22 Livan Sharif MD [address] [place] [address] Assigned Heart and Vascular Provider 11/06/22 11/12/22 Catherine Cm MD [address] [place] [address] Assigned Heart and Vascular Provider 11/13/22 05/27/23 Sydnie Martinez RN Personal Advocate & Liaison (PAL) Family Medicine 03/28/23 07/31/23 Alfonso Renteria MD 5775 [facility] [address] [place] [address] Assigned Neuroscience Provider 04/02/23 Cheng Todd PA-C [address] [place] [address] Assigned PCP 04/30/23 07/15/23 Radha Lomeli APRN CHALKER SOLES [address] [facility] [address] [place] [address] Assigned Heart and Vascular Provider 05/28/23 Jelena David OD [address] [facility] [place] [address] Ophthalmology 06/15/23 Pao Joseph, VJ Personal Advocate & Liaison (PAL) Nurse 08/01/23 11/07/23 Esha Grimm PA-C [address] [place] [address] Assigned PCP 07/16/23 Valery Veronica PA-C [address] [place] [address]295 Physician Clinical Nutrition Manager Dermatology 09/19/23 Rey Tay MD [address] [place] [address] 241035 Gastroenterology 09/20/23 Rocky Zepeda DO [address] [place] [address] 967895 Physician Gastroenterology 09/20/23 Philip Dumont MD [address] [place] [address] Physician Ophthalmology 09/22/23 Meredith Carrera PA-C 909 [place] [address] Assigned Gastroenterology Provider 11/01/23 Neil Kent MD [address] [address] Dermatology 11/02/23 [place] [address] [place] [address] Neurological Surgery 12/26/23 documented as of this encounter
--- OUTSIDE RECORDS SUMMARY | 2024-01-07 18:14 | XMS_ITS | Encounter Summary ---
Author Organization [facility] Address [address] [place] [address] Care Team Providers Care Telegraph Operator Name Role Phone Lita Oseguera Unavailable Unavailable Marija Edgar APRN FISH SEINER Primary Care Provider U Marija Bella APRN FISH SEINER Unavailable Unavail able Keisha Dotson MD Unavailable Galo Burrell MD Unavailable Unavailable Diana Desir [facility] Unavailable [phone] Rain Galaviz PA-C Unavailable Summer Lara MD Unavailable [phone] Tavia Wyatt MD Unavailable Unavailable Johnny Murillo MD Unavailable [phone] Erica Farrell APRN FISH SEINER Unavailable Tavia Wyatt MD Unavailable Unavailable Diana Desir [facility] Unavailable Rich Barrett MD Unavailable [phone] Neil Kent MD Unavailable Roney Story DPM Unavailable [phone] Erica Farrell BLOCK TRADER FISH SEINER Unavailable Diana Desir [facility] Unavailable [phone] Frankie, Jelena Radha OD Unavailable Galo Burrell MD Unavailable Unavailable Livan Sharif MD Unavailable + Livan Sharif MD Unavailable + IsCatherine hobbs MD Unavailable + Valery Veronica PA-C Unavailable [phone] Catherine Cm MD Unavailable + Johnny Murillo MD Unavailable [phone] Brea Quinn BLOCK TRADER FISH SEINER Unavailable [phone] Brea Quinn BLOCK TRADER FISH SEINER Unavailable [phone] Jose Francisco Johnson MD Unavailable Livan Sharif MD Unavailable + Catherine Cm MD Unavailable + Sydnie Martinez RN Unavailable Unavailable Alfonso Renteria MD Unavailable Esha Grimm PA-C Primary Care Provider Cheng Todd PA-C Unavailable Radha Lomeli BLOCK TRADER FISH SEINER Unavailable [phone] Jelena David OD Unavailable [phone] Pao Joseph RN Unavailable Unavailable Esha Grimm PA-C Unavailable [phone] Valery Veronica PA-C Unavailable [phone] Rey Tay MD Unavailable Rocky Zepeda DO Unavailable Philip Dumont MD Unavailable [phone] Meredith Carrera PA-C Unavailable [phone] Neil Kent MD Unavailable Juan Pablo Emmanuel MD Unavailable Encounter Details Date Type Department Care Team (Late st Contact Info) Description 01/22/2022 [facility] Medical Advice [address] [address] Thang Diana T, [facility] [address] [place] [address] Social History Tobacco Use Types [...] How often do you attend sikh or shinto serv ices? Never 09/22/2021 Do you belong [...] Answer Date Recorded PHQ-2 Score 2 12/18/2021 [facility] - Occupational Stress [...] in a retirement (including now)? No 09/22/2021 Hopkins Depression Scale Answer Date Recorded Hopkins [...] Description 01/09/2024 10:15 AM CDT Office Visit [facility] Neurology [facility] [address] [place] [address], [address] [place] [phone] Genny Hyman PA-C [facility] Epilepsy [facility] 5775 [facility] 255 [place], [place] [address] [place] [address] [facility] 300 [place], [place] [address] 02/06/2024 10:00 AM CDT Office Visit [facility] [address] [phone] Neil Kent MD 500 [place], [place] [address] 03/06/2024 3:00 PM CDT Office Visit [facility] Heart [facility] [address] [facility] [address] [place] [phone] Radha Lomeli, BLOCK TRADER FISH SEINER [address] [place] [address] 03/07/2024 9:00 AM CDT Hospital Encounter [facility] [place] [address] [place] [address] 5[address] [place] [phone] Rocky Zepeda, 500 [place], [place] [address] 03/07/2024 9:00 AM CDT - 03/07/2024 9:30 AM CDT Surgery [facility] 9[address] [facility] 5th [place] [phone] Rocky Zepeda DO [address] [place] [address] Esophagoscopy, gastroscopy, duodenoscopy (EGD), combined Scheduled Procedures [...] Out COVID-19 05/17/2022 05/17/2022 05/17/2022 10:20 PM CROZER OPERATOR Rule Out COVID-19 06/09/2022 06/09/2022 06/09/2022 9:35 AM CROZER OPERATOR COVID-19 06/09/2022 06/09/2022 06/30/2022 11:4 1 PM CROZER OPERATOR Rule Out COVID-19 11/10/2022 11/10/2022 11/11/2022 12:17 PM CDT Rule Out COVID-19 03/07/2023 03/07/2023 03/07/2023 1:20 PM CDT Rule Out COVID-19 12/26/2023 12/26/2023 12/26/2023 9:50 AM CDT Assessment Noted Time PHQ-9 Depression Total Score: 2 12/19/19 22 2:50 PM CDT documented as of this encounter Care Teams Telegraph Operator Relationship Specialty Start Date End Date Marija Edgar APRN FISH SEINER PCP - General Nurse Practitioner 04/30/20 04/14/23 Esha Grimm PA-C [address] [place] [address] PCP - General Family Medicine 05/04/23 Lita Oseguera Personal Advocate & Liaison (PAL) 02/28/20 03/27/23 Marija Edgar APRN FISH SEINER Assigned PCP 06/08/20 04/29/23 Keisha Dotson MD [address] [place] [address] Assigned Neuroscience Provider 06/04/20 04/01/23 Galo Burrell MD Assigned Heart and Vascular Provider 10/05/20 04/02/22 Diana Desir, [facility] [address] [place] [address] Pharmacist Pharmacist 04/17/21 Rain Galaviz PA-C [address] [place] [address] [place] [address] Physician Wood Type Cutter Dermatology 04/28/21 Summer Lara MD [address] [place] [address] Assigned OBGYN Provider 05/31/21 2 Tavia Wyatt MD [address] [place] [address] Dermatology 07/14/21 Johnny Murillo MD [address] [place] [address] Assigned Musculoskeletal Provider 08/30/21 03/17/22 Erica Farrell APRN FISH SEINER [address] [facility] [address] [place] [address] Nurse Practitioner Cardiovascular Disease 09/09/21 Tavia Wyatt MD Assigned Surgical Provider 11/29/21 05/07/22 [facility] [address] [place] [address] Assigned MTM Pharmacist 01/02/22 Rich Barrett MD [address] [address] Physician Ophthalmology 01/21/22 Neil Kent MD 500 [place], [place] [address] Dermatology 02/24/22 [place] [address] [facility] [address] [place], [place] [address] Assigned Musculoskeletal Provider 03/20/22 08/13/22 Erica Farrell APRN FISH SEINER 1700 [place] [address] Assigned Heart and Vascular Provider 04/03/22 04/16/22 Diana Desir, [facility] [address] [place], [place] 4837[address] Assigned MTM Pharmacist 04/07/22 Jelena David OD [address] [facility] [place] [address] Assigned Surgical Provider 05/08/22 10/08/22 Galo Burrell MD Assigned Heart and Vascular Provider 04/17/22 06/11/22 Livan Sharif MD [address] [place], [place] [address] Cardiovascular Disease 05/14/22 Livan Sharif MD [address] [place] [address] Assigned Heart and Vascular Provider 06/12/22 07/23/22 Catherine Cm MD [address] [place], [place] [address] Cardiovascular Disease 07/21/22 Valery Veronica, PA-C [address] [place], [place] [address] Physician Wood Type Cutter Dermatology 07/21/22 Catherine Cm MD [address] [place] [address] Assigned Heart and Vascular Provider 07/24/22 11/05/22 Johnny Murillo MD [address] [facility] [address] [place], [place] [address] Assigned Musculoskeletal Provider 08/14/22 10/08/22 Brea Quinn APRN FISH SEINER 500 [facility] [place] [address] Nurse Practitioner Dermatology 09/21/22 Brea Quinn APRN FISH SEINER 6401 [facility] [place], [place] [address]30[address] Assigned Surgical Provider 10/09/22 [place] [address] [facility] [address] [place], [place] [address] Assigned Musculoskeletal Provider 10/09/22 Livan Sharif MD [address], [facility] [address] [place] [address] Assigned Heart and Vascular Provider 11/06/22 11/12/22 Catherine Cm MD [address] [facility] [address] [place] [address] Assigned Heart and Vascular Provider 11/13/22 05/27/23 Sydnie Martinez RN Personal Advocate & Liaison (PAL) Family Medicine 03/28/23 07/31/23 Alfonso Renteria MD 5775 [facility] 200 [place], [place] 2[address] Assigned Neuroscience Provider 04/02/23 Cheng Todd PA-C [address] [place] [address] Assigned PCP 04/30/23 07/15/23 Radha Lomeli APRN CNP 6[address] [facility] [address] [place] [address] Assigned Heart and Vascular Provider 05/28/23 Jelena David OD [address] [facility] [place] [address] MD Ophthalmology 06/15/23 Pao Joseph, VJ Personal Advocate & Liaison (PAL) Nurse 08/01/23 11/07/23 Esha Grimm PA-C [address] [place] [phone] Assigned PCP 07/16/23 Valery Veronica PA-C [address] [place] [address] Physician Wood Type Cutter Dermatology 09/19/23 Rey Tay MD [address] [place] [address] Gastroenterology 09/20/23 Rocky Zepeda DO [address] [place] [address] Physician Gastroenterology 09/20/23 Philip Dumont MD [address] [place] [address] Physician Ophthalmology 09/22/23 Meredith Carrera PA-C [address] [place] [address] Assigned Gastroenterology Provider 11/01/23 Neil Kent MD [address] [place] [address] MD Dermatology 11/02/23 [place] [address] [address] Neurological Surgery 12/26/23 documented as of this encounter
--- OUTSIDE RECORDS SUMMARY | 2024-01-07 18:14 | XMS_ITS | Encounter Summary ---
Author Organization [facility] Address [address] [place] [address] Care Team Providers Care Investigator Internal Revenue Name Role Phone Lita Oseguera Unavailable Unavailable Marija Edgar APRN ENTRY LEVEL INSTALLATION TECHNICIAN Primary Care Provider U Marija Bella APRN ENTRY LEVEL INSTALLATION TECHNICIAN Unavailable Unavail able Keisha Dotson MD Unavailable Diana Desir [facility] Unavailable Rain Galaviz-C Unavailable Tavia Wyatt MD Unavailable Unavailable Erica Farrell APRN ENTRY LEVEL INSTALLATION TECHNICIAN Unavailable Rich Barrett MD Unavailable [phone] Neil Kent MD Unavailable Roney Story DPM Unavailable [phone] Diana Desir [facility] Unavailable [phone] Jelena David OD Unavailable Livan Sharif MD Unavailable Livan Sharif MD Unavailable Catherine Cm MD Unavailable + Valery Veronica PA-C Unavailable [phone] Catherine Cm MD Unavailable + Johnny Murillo MD Unavailable [phone] Brea Quinn ENGINEERING TECH ENTRY LEVEL INSTALLATION TECHNICIAN Unavailable [phone] Brea Quinn ENGINEERING TECH ENTRY LEVEL INSTALLATION TECHNICIAN Unavailable [phone] Jose Francisco Johnson MD Unavailable Livan Sharif MD Unavailable Catherine Cm MD Unavailable + Sydnie Martinez RN Unavailable Unavailable Alfonso Renteria MD Unavailable Esha Grimm PA-C Primary Care Provider Cheng Todd PA-C Unavailable Radha Lomeli ENGINEERING TECH ENTRY LEVEL INSTALLATION TECHNICIAN Unavailable [phone] Jelena David OD Unavailable [phone] Pao Joseph RN Unavailable Unavailable Esha Grimm PA-C Unavailable [phone] Valery Veronica PA-C Unavailable Rey Tay MD Unavailable Rocky Zepeda DO Unavailable Philip Dumont MD Unavailable [phone] Meredith Carrera PA-C Unavailable [phone] Neil Kent MD Unavailable Juan Pablo Emmanuel MD Unavailable Reason for Visit * Reason Onset Date Comments Appointment 06/14/2022 Stress test and monitor on the same day Encounter Details Date Type Department Care Team (Late st Contact Info) Description 06/14/2022 [facility] Heart [facility] 6[address] [facility] [address] [place] [address] Livan Sharif MD [address] [place] [address] Appointment (Stress test and monitor on the [...] often do you attend jehovah's witness or taoism serv ices? Never 09/22/2021 Do [...] points; Administer PHQ-9 if positive 1 05/13/2022 [facility] - Occupational Stress Questionnaire [...] in a residential (including now)? No 09/22/2021 Philadelphia Depression Scale Answer Date Recorded Philadelphia Depression Score 5 01/14/2021 Last EPDS Self [...] to have Coronavirus/COVID-19? Yes 06/16/2022 12:32 PM REPTILE FARMER documented as of this encounter Miscellaneous Notes * Telephone Encounter - Amalia Matute MA - 06/14/2022 9:30 AM CST [facility] Call Center Phone Message May a detailed message be left on voicemail: yes Reason for Call: Other: Pt is needing to reschedule her stress test and ziopatch monitor on the same day. Fridays work best or - at 3:30. Please call pt back to schedule. Thank you Action Taken: Message routed to: Other: Cardiology Travel Screening: Not Applicable Thank you! [facility] ILE FARMER documented in this encounter Plan of Treatment Upcoming Encounters Date Type Department Care Team (Late st Contact Info) Description 01/09/2024 10:15 AM CDT Office Visit [facility] Neurology [facility] - [address], [address] [place] [address] Genny Hyman PA-C [facility] Epilepsy Care 5775 [facility] 255 [place], [place] [address] [place] [address] [facility] 300 [place] [address] 02/06/2024 10:00 AM CDT Office Visit [address] [address] Neil Kent MD 500 [place] [address] 03/06/2024 3:00 PM CDT Office Visit [facility] Heart [facility] [address] [place] [phone] Radha Lomeli, ENGINEERING TECH ENTRY LEVEL INSTALLATION TECHNICIAN [address] [place] [address] 03/07/2024 9:00 AM CDT Hospital Encounter [address] 5th [place] [phone] Rocky Zepeda DO 500 [place] [address] 03/07/2024 9:00 AM CDT - 03/07/2024 9:30 AM CDT Surgery [address] [phone] Rocky Zepeda DO 500 [place], [place] [address] Esophagoscopy, gastroscopy, duodenoscopy (EGD), combined Scheduled Procedures Name Priority Associated Diagnoses Date/Ti az ESOPHAGOGASTRODUODENOSCOPY Eosinophilic esophagitis Esophageal dysphagia 03/07/2024 9:00 AM CDT documented as of this encounter Visit Diagnoses Not on filedocumented in this encounter Additional Health Concerns Infection Onset Date Last Indicated Resolved Time COVID-19 06/09/2022 06/09/2022 06/30/2022 11:4 1 PM REPTILE FARMER Rule Out COVID-19 11/10/2022 11/10/2022 11/11/2022 12:17 PM CDT Rule Out COVID-19 03/07/2023 03/07/2023 03/07/2023 1:20 PM CDT Rule Out COVID-19 12/26/2023 12/26/2023 12/26/2023 9:50 AM CDT Assessment Noted Time PHQ-9 Depression Total Score: 3 05/13/20 8:49 PM CDT documented as of this encounter Care Teams Investigator Internal Revenue Relationship Specialty Start Date End Date Marija Edgar APRN ENTRY LEVEL INSTALLATION TECHNICIAN PCP - General Nurse Practitioner 04/30/20 04/14/23 Esha Grimm PA-C [address] [facility] [place] [phone] PCP - General Family Medicine 05/04/23 Lita Oseguera Personal Advocate & Liaison (PAL) 02/28/20 03/27/23 Marija Edgar APRN ENTRY LEVEL INSTALLATION TECHNICIAN Assigned PCP 06/08/20 04/29/23 Keisha Dotson MD [address]09 [place], [place] 4[address] Assigned Neuroscience Provider 06/04/20 04/01/23 Diana Desir, [facility] [address] [place], [place] [address] Pharmacist Pharmacist 04/17/21 Rain Galaviz PA-C [address] [place] [address] [address] [place] [address] Physician Washing Machine Operator Dermatology 04/28/21 Tavia Wyatt MD [address] [place] [address] [place] [address] Dermatology 07/14/21 Erica Farrell APRN ENTRY LEVEL INSTALLATION TECHNICIAN [address] [place] [address] Nurse Practitioner Cardiovascular Disease 09/09/21 Rich Barrett MD 516 [facility] [place], [place] [address] Physician Ophthalmology 01/21/22 Neil Kent MD 500 [place] [address] Dermatology 02/24/22 Roney Story DPM [address] [employer] [address] [place], [place] [address] Assigned Musculoskeletal Provider 03/20/22 08/13/22 Diana Desir, [facility] [address] [place], [place] [address] Assigned MTM Pharmacist 04/07/22 Jelena David OD 3305 [facility] [place] [address] Assigned Surgical Provider 05/08/22 10/08/22 Livan Sharif MD [address] [place] [address] Cardiovascular Disease 05/14/22 Livan Sharif MD [address] [place] [address] Assigned Heart and Vascular Provider 06/12/22 07/23/22 Catherine Cm MD [address] [place] [address] Cardiovascular Disease 07/21/22 Valery Veronica PA-C 909 [place] [address] Physician Washing Machine Operator Dermatology 07/21/22 Catherine Cm MD [address] [facility] [address] [place] [address] Assigned Heart and Vascular Provider 07/24/22 11/05/22 Johnny Murillo MD [facility][note 3][address] [address] Assigned Musculoskeletal Provider 08/14/22 10/08/22 Brea Quinn APRN ENTRY LEVEL INSTALLATION TECHNICIAN [address] [place] [address]3955 Nurse Practitioner Dermatology 09/21/22 Brea Quinn APRN ENTRY LEVEL INSTALLATION TECHNICIAN [address] [place] [address] [place] 439342 Assigned Surgical Provider 10/09/22 [place] [address] 884[address] Assigned Musculoskeletal Provider 10/09/22 Livan Sharif MD [address], [address] [place] [address] Assigned Heart and Vascular Provider 11/06/22 11/12/22 Catherine Cm MD [address] [place] [address] Assigned Heart and Vascular Provider 11/13/22 05/27/23 Sydnie Martinez, RN Personal Advocate & Liaison (PAL) Family Medicine 03/28/23 07/31/23 Alfonso Renteria MD 5775 [facility] [address] [place] [address] Assigned Neuroscience Provider 04/02/23 Cheng Todd PA-C [address] [place] [id number] Assigned PCP 04/30/23 07/15/23 Radha Lomeli APRN ENTRY LEVEL INSTALLATION TECHNICIAN 6405 [facility] [address] [place] [address] Assigned Heart and Vascular Provider 05/28/23 Jelena David OD [address] [facility] [place] [address] Ophthalmology 06/15/23 Pao Joseph, VJ Personal Advocate & Liaison (PAL) Nurse 08/01/23 11/07/23 Esha Grimm PA-C [address] [place] [phone] Assigned PCP 07/16/23 Valery Veronica PA-C [address] [place] [address] Physician Washing Machine Operator Dermatology 09/19/23 Rey Tay MD [address] [place] [address]39[address] Gastroenterology 09/20/23 Rocky Zepeda DO [address] [place] [address] Physician Gastroenterology 09/20/23 Philip Dumont MD [address] [place] [address] Physician Ophthalmology 09/22/23 Meredith Carrera PA-C [address] [place] [address] Assigned Gastroenterology Provider 11/01/23 Neil Kent MD [address] [address] Dermatology 11/02/23 [place] [address] [place] [address] Neurological Surgery 12/26/23 documented as of this encounter
--- OUTSIDE RECORDS SUMMARY | 2024-01-07 18:14 | XMS_ITS | Encounter Summary ---
Author Organization [facility] Address [address] [place] [address] Care Team Providers Care Hr Recruiter Name Role Phone Lita Oseguera Unavailable Unavailable Marija Edgar APRN DENTAL CERAMIST Primary Care Provider U Marija Bella APRN DENTAL CERAMIST Unavailable Unavail able Keisha Dotson MD Unavailable [phone] Diana Desir [facility] Unavailable Rain Galaviz PA-C Unavailable Tavia Wytat MD Unavailable Unavailable Erica Farrell APRN DENTAL CERAMIST Unavailable Rich Barrett MD Unavailable [phone] Neil Kent MD Unavailable Roney Story DPM Unavailable [phone] Diana Desir [facility] Unavailable [phone] Jelena David OD Unavailable Galo Burrell MD Unavailable Unavailable Livan Sharif MD Unavailable Livan Sharif MD Unavailable Catherine Cm MD Unavailable + Valery Veronica PA-C Unavailable [phone] Catherine Cm MD Unavailable + Johnny Murillo MD Unavailable [phone] Brea Quinn FAMILY LIVING EDUCATOR DENTAL CERAMIST Unavailable [phone] Brea Quinn FAMILY LIVING EDUCATOR DENTAL CERAMIST Unavailable [phone] Jose Francisco Johnson MD Unavailable Livan Sharif MD Unavailable Catherine Cm MD Unavailable + Sydnie Martinez RN Unavailable Unavailable Alfonso Renteria MD Unavailable Esha Grimm PA-C Primary Care Provider Cheng Todd PA-C Unavailable [phone] Radha Lomeli FAMILY LIVING EDUCATOR DENTAL CERAMIST Unavailable [phone] Jelena David OD Unavailable Pao Joseph RN Unavailable Unavailable Esha Grimm PA-C Unavailable [phone] Valery Veronica PA-C Unavailable [phone] Rey Tay MD Unavailable Rocky Zepeda DO Unavailable Philip Dumont MD Unavailable [phone] Meredith Carrera PA-C Unavailable Neil Kent MD Unavailable Juan Pablo Emmanuel MD Unavailable Encounter Details Date Type Department Care Team (Late st Contact Info) Description 05/11/2022 [facility] [address] [address] Diana Desir, [facility] [address] [place] [address] Social History Tobacco Use Types [...] How often do you attend gnosticist or baptism serv ices? Never 09/22/2021 Do [...] points; Administer PHQ-9 if positive 1 05/13/2022 [facility] [place] [facility] - Occupational Stress Questionnaire Answer Date [...] in a jail (including now)? No 09/22/2021 Howe Depression Scale Answer Date Recorded Howe Depression Score 5 01/14/2021 Last EPDS Self [...] Office Visit [facility] Neurology [facility] [address] [facility], [address] [place] [phone] Genny Hyman, [facility] [address] [facility] 255 [place], [place] [phone] [place] [address] [facility] 300 [place], [place] 28[address] 02/06/2024 10:00 AM CDT Office Visit [facility] [address] [phone] Neil Kent MD 500 [place], [place] [address] 03/06/2024 3:00 PM CDT Office Visit [facility] Heart [facility] [address] [facility] [address] [place] [phone] Radha Lomeli, FAMILY LIVING EDUCATOR DENTAL CERAMIST [address] [facility] [address] [place], [place] [address] 03/07/2024 9:00 AM CDT Hospital Encounter [facility] [address] [facility] [address] 5th [place] [phone] Rocky Zepeda DO 500 [place] [address] 03/07/2024 9:00 AM CDT - 03/07/2024 9:30 AM CDT [address] 5th [place] [phone] Rocky Zepeda DO 500 [place] [address] Esophagoscopy, gastroscopy, duodenoscopy (EGD), combined Scheduled Procedures Name Priority Associated Diagnoses Date/Ti ne ESOPHAGOGASTRODUODENOSCOPY Eosinophilic esophagitis Esophageal dysphagia 03/07/2024 9:00 AM CDT documented as of this encounter Visit Diagnoses Not on filedocumented in this encounter Additional Health Concerns Infection Onset Date Last Indicated Resolved Time Rule Out COVID-19 05/17/2022 05/17/2022 05/17/2022 10:20 PM AGENCY OWNER Rule Out COVID-19 06/09/2022 06/09/2022 06/09/2022 9:35 AM AGENCY OWNER COVID-19 06/09/2022 06/09/2022 06/30/2022 11:4 1 PM AGENCY OWNER Rule Out COVID-19 11/10/2022 11/10/2022 11/11/2022 12:17 PM CDT Rule Out COVID-19 03/07/2023 03/07/2023 03/07/2023 1:20 PM CDT Rule Out COVID-19 12/26/2023 12/26/2023 12/26/2023 9:50 AM CDT Assessment Noted Time PHQ-9 Depression Total Score: 3 05/13/20 22 8:49 PM CDT documented as of this encounter Care Teams Hr Recruiter Relationship Specialty Start Date End Date Marija Edgar APRN CNP PCP - General Nurse Practitioner 04/30/20 04/14/23 Esha Grimm PA-C [address] [place] [phone] PCP - General Family Medicine 05/04/23 Lita Oseguera Personal Advocate & Liaison (PAL) 02/28/20 03/27/23 Marija Edgar APRN DENTAL CERAMIST Assigned PCP 06/08/20 04/29/23 Keisha Dotson MD 909 [place] [address] Assigned Neuroscience Provider 06/04/20 04/01/23 Diana Desir, [facility] [address] [place] [address] Pharmacist Pharmacist 04/17/21 Rain Galaviz PA-C [address] [place] [address] [address] [place] [address] Physician Chair Upholsterer Dermatology 04/28/21 Tavia Wyatt MD [address] [place] [address] DR [facility] [address] Dermatology 07/14/21 Erica Farrell APRN DENTAL CERAMIST [address] [place] [address] Nurse Practitioner Cardiovascular Disease 09/09/21 Rich Barrett MD [address] [phone] Physician Ophthalmology 01/21/22 Neil Kent MD [address] [place] [address] 964625 Dermatology 02/24/22 Roney Story DPM [address] [facility] [address] [place] [address] Assigned Musculoskeletal Provider 03/20/22 08/13/22 Diana Desir, [facility] [address] [place] [address] Assigned MTM Pharmacist 04/07/22 Jelena David OD [address] [facility] [place] [address] Assigned Surgical Provider 05/08/22 10/08/22 Galo Burrell MD Assigned Heart and Vascular Provider 04/17/22 06/11/22 Livan Sharif MD [address] [place] [address] Cardiovascular Disease 05/14/22 Livan Sharif MD [address] [place] [address] Assigned Heart and Vascular Provider 06/12/22 07/23/22 Catherine Cm MD [address] [place] [address] Cardiovascular Disease 07/21/22 Valery Veronica, PA-C [address] [place] [address] Physician Chair Upholsterer Dermatology 07/21/22 Catherine Cm MD [address] [place] [address] Assigned Heart and Vascular Provider 07/24/22 11/05/22 Johnny Murillo MD [facility] [address] [address] Assigned Musculoskeletal Provider 08/14/22 10/08/22 Brea Quinn APRN DENTAL CERAMIST 500 [place] [address] Nurse Practitioner Dermatology 09/21/22 Brea Quinn APRN DENTAL CERAMIST [address] [place] [address] Assigned Surgical Provider 10/09/22 [place] [address] [address] Assigned Musculoskeletal Provider 10/09/22 Livan Sharif MD [address] [facility] [address] [place] [address] Assigned Heart and Vascular Provider 11/06/22 11/12/22 Catherine Cm MD [address] [facility] [address] [place] [address] Assigned Heart and Vascular Provider 11/13/22 05/27/23 Sydnie Martinez, VJ Personal Advocate & Liaison (PAL) Family Medicine 03/28/23 07/31/23 Alfonso Renteria MD [address] [facility] 200 [place], [place] [address]126 Assigned Neuroscience Provider 04/02/23 Cheng Todd PA-C [address] [place] [address] [id number] Assigned PCP 04/30/23 07/15/23 Radha Lomeli APRN DENTAL CERAMIST 6[address] [facility] [address] [place] [address] Assigned Heart and Vascular Provider 05/28/23 Jelena David OD [address] [facility] [place] [address] MD Ophthalmology 06/15/23 Pao Joseph, VJ Personal Advocate & Liaison (PAL) Nurse 08/01/23 11/07/23 Esha Grimm PA-C [address] [place] [address] Assigned PCP 07/16/23 Valery Veronica PA-C [address] [place] [address] Physician Chair Upholsterer Dermatology 09/19/23 Rey Tay MD [address] [place] [address] 478915 Gastroenterology 09/20/23 Rocky Zepeda DO [address] [place] [address] [id number] Physician Gastroenterology 09/20/23 Philip Dumont MD [address] [place] [address] 414025 Physician Ophthalmology 09/22/23 Meredith Carrera PA-C [address] [place], [place] 8[address] Assigned Gastroenterology Provider 11/01/23 Neil Kent MD [address] 052[address] Dermatology 11/02/23 [place] [address] [place] [address] Neurological Surgery 12/26/23 documented as of this encounter
--- OUTSIDE RECORDS SUMMARY | 2024-01-07 18:14 | XMS_ITS | Encounter Summary ---
Author Organization [facility] Address [address] [place] [address] Care Team Providers Care Surgical Services Coordinator Name Role Phone Lita Oseguera Unavailable Unavailable Marija Edgar APRN HIGH SCHOOL FRENCH TEACHER Primary Care Provider U Marija Bella APRN HIGH SCHOOL FRENCH TEACHER Unavailable Unavail able Keisha Dotson MD Unavailable Diana Desir [facility] Unavailable [phone] Rain Galaviz-C Unavailable Tavia Wyatt MD Unavailable Unavailable Erica Farrell APRN HIGH SCHOOL FRENCH TEACHER Unavailable Rich Barrett MD Unavailable [phone] Neil Kent MD Unavailable Roney Story DPM Unavailable [phone] Diana Desir [facility] Unavailable [phone] Jelena David OD Unavailable Livan Sharif MD Unavailable Livan Sharif MD Unavailable Catherine Cm MD Unavailable + Valery Veronica PA-C Unavailable [phone] Catherine Cm MD Unavailable + Johnny Murillo MD Unavailable [phone] Brea Quinn FRUIT DUMPER HIGH SCHOOL FRENCH TEACHER Unavailable [phone] Brea Quinn FRUIT DUMPER HIGH SCHOOL FRENCH TEACHER Unavailable [phone] Jose Francisco Johnson MD Unavailable Livan Sharif MD Unavailable Catherine Cm MD Unavailable + Sydnie Martinez RN Unavailable Unavailable Alfonso Renteria MD Unavailable [phone] Esha Grimm PA-C Primary Care Provider Cheng Todd PA-C Unavailable Radha Lomeli FRUIT DUMPER HIGH SCHOOL FRENCH TEACHER Unavailable Jelena David OD Unavailable Pao Joseph RN Unavailable Unavailable Esha Grimm PA-C Unavailable [phone] Valery Veronica PA-C Unavailable Rey Tay MD Unavailable Rocky Zepeda DO Unavailable Philip Dumont MD Unavailable [phone] Meredith Carrera PA-C Unavailable Neil Kent MD Unavailable Juan Pablo Emmanuel MD Unavailable Encounter Details Date Type Department Care Team (Late st Contact Info) Description 07/02/2022 [facility] [address] [address] Diana Desir, [facility] [address] [place] [address] Social History Tobacco Use Types [...] How often do you attend adventist or zoroastrian serv ices? Never 09/22/2021 Do you belong [...] points; Administer PHQ-9 if positive 1 05/13/2022 [facility] - [facility] [...] in a long-term (including now)? No 09/22/2021 [place] Depression Scale Answer Date Recorded [place] Depression Score 5 01/14/2021 Last EPDS Self [...] Coronavirus/COVID-19? No / Unsure 06/25/2022 8:44 AM HORTICULTURAL NURSERY ASSISTANT documented as of this encounter Plan of Treatment Upcoming Encounters Date Type Department Care Team (Late st Contact Info) Description 01/09/2024 10:15 AM CDT Office Visit [facility] [place] [address] [facility], [address] [place] [phone] Genny Hyman PA-C [facility] Epilepsy [facility] [address] [facility] 255 [place], [place] 382[address] [place] [address] [facility] [place] [facility] 300 [place], [place] [address] 02/06/2024 10:00 AM CDT Office Visit [facility] [address] [phone] Neil Kent MD 500 [place], [place] [address] 03/06/2024 3:00 PM CDT Office Visit [facility] Heart [facility] [address] [facility] [address] [place] [phone] Radha Lomeli APRN HIGH SCHOOL FRENCH TEACHER [address] [facility] [address] [place], [place] [address] 03/07/2024 9:00 AM CDT Hospital Encounter [facility] [address] [facility] 5th [place] [phone] Rocky Zepeda DO 500 [place] [address] 03/07/2024 9:00 AM CDT - 03/07/2024 9:30 AM CDT [address] 5th [place] [phone] Rocky Zepeda DO 500 [place] [address] Esophagoscopy, gastroscopy, duodenoscopy (EGD), combined Scheduled Procedures [...] as of this encounter Care Teams Surgical Services Coordinator Relationship Specialty Start Date End Date Marija Edgar APRN HIGH SCHOOL FRENCH TEACHER PCP - General Nurse Practitioner 04/30/20 04/14/23 Esha Grimm PA-C [address] [place] [address] PCP - General Family Medicine 05/04/23 Lita Oseguera Personal Advocate & Liaison (PAL) 02/28/20 03/27/23 Marija Edgar APRN HIGH SCHOOL FRENCH TEACHER Assigned PCP 06/08/20 04/29/23 Keisha Dotson MD [address] [place] [address] [place] [address] Assigned Neuroscience Provider 06/04/20 04/01/23 Diana Desir [facility] [address] [place] [address] Pharmacist Pharmacist 04/17/21 Rain Galaviz PA-C [address] [place] [address] [address] [place] [address] Physician Trimmer Helper Dermatology 04/28/21 Tavia Wyatt MD [address] [place] [address] [address] [facility] [place] [address] Dermatology 07/14/21 Erica Farrell APRN HIGH SCHOOL FRENCH TEACHER [address] [facility] [place] [address] Nurse Practitioner Cardiovascular Disease 09/09/21 Rich Barrett MD [address] [place] [address] [address] [place], [place] [address] Physician Ophthalmology 01/21/22 Neil Kent MD [address] [place] [address] 920305 Dermatology 02/24/22 Roney Story DPM [address] [facility] 300 [place], [place] 29[address]37 Assigned Musculoskeletal Provider 03/20/22 08/13/22 Diana Desir [facility] [address] [place] [address] Assigned MTM Pharmacist 04/07/22 [place] [address] [place] [address] [place] [address] Assigned Surgical Provider 05/08/22 10/08/22 Livan Sharif MD [address], [facility] [address] [place] [address] Cardiovascular Disease 05/14/22 Livan Sharif MD [address], [facility]00 [place] [address] Assigned Heart and Vascular Provider 06/12/22 07/23/22 Catherine Cm MD [address] [facility]00 [place] [address] Cardiovascular Disease 07/21/22 Valery Veronica, PA-C [address] [place] [address] Physician Trimmer Helper Dermatology 07/21/22 Catherine Cm MD [address] [facility] [place] [address] Assigned Heart and Vascular Provider 07/24/22 11/05/22 Johnny Murillo MD [facility] [address] [address] Assigned Musculoskeletal Provider 08/14/22 10/08/22 Brea Quinn APRN HIGH SCHOOL FRENCH TEACHER [address] [place] [address] [place] [address] Nurse Practitioner Dermatology 09/21/22 Brea Quinn APRN HIGH SCHOOL FRENCH TEACHER 6401 [facility] [place] [address] Assigned Surgical Provider 10/09/22 [place] [address] [facility] [place] [facility] 300 [place] [address] Assigned Musculoskeletal Provider 10/09/22 Livan Sharif MD [address] [facility] [address] [place] [address] Assigned Heart and Vascular Provider 11/06/22 11/12/22 Catherine Cm MD [address] [facility]00 [place] [address] Assigned Heart and Vascular Provider 11/13/22 05/27/23 Sydnie Martinez, RN Personal Advocate & Liaison (PAL) Family Medicine 03/28/23 07/31/23 Alfonso Renteria MD [address]75 [facility] [address] [place] [address] Assigned Neuroscience Provider 04/02/23 Cheng Todd PA-C [address] [place] [address] [id number] Assigned PCP 04/30/23 07/15/23 Radha Lomeli APRN HIGH SCHOOL FRENCH TEACHER [address] [place] 888835 Assigned Heart and Vascular Provider 05/28/23 Jelena David OD [facility]5 [facility] [place] [address] MD Ophthalmology 06/15/23 Pao Joseph, RN Personal Advocate & Liaison (PAL) Nurse 08/01/23 11/07/23 Esha Grimm PA-C [address] [place] [address] Assigned PCP 07/16/23 Valery Veronica PA-C [address] [place] [address] Physician Trimmer Helper Dermatology 09/19/23 Rey Tay MD [address] [place] [address] Gastroenterology 09/20/23 Rocky Zepeda DO [address] [place] [address] 349215 Physician Gastroenterology 09/20/23 Philip Dumont MD [address] [place] [address] 153225 Physician Ophthalmology 09/22/23 Meredith Carrera PA-C [address] [place] [address] 032605 Assigned Gastroenterology Provider 11/01/23 Neil Kent MD [address] 9905[address] Dermatology 11/02/23 [place] [address] [address] Neurological Surgery 12/26/23 documented as of this encounter
--- OUTSIDE RECORDS SUMMARY | 2024-01-07 18:15 | XMS_ITS | Encounter Summary ---
Author Organization [place] Address [address] [place] [address] Care Team Providers Care Director Of Group Counseling Program Name Role Phone Lita Oseguera Unavailable Unavailable Marija Edgar APRN PAPER CUP HANDLE MACHINE OPERATOR Primary Care Provider U Marija Bella APRN PAPER CUP HANDLE MACHINE OPERATOR Unavailable Unavail able Mynor Broussard MD Unavailable [phone] Keisha Dotson MD Unavailable Galo Burrell MD Unavailable Unavailable Diana Desir [facility] Unavailable [phone] Rain Galaviz PA-C Unavailable Summer Lara MD Unavailable [phone] Tavia Wyatt MD Unavailable Unavailable Johnny Murillo MD Unavailable Erica Farerll APRN PAPER CUP HANDLE MACHINE OPERATOR Unavailable Teresita Bean [facility] Unavailable [phone] Tavia Wyatt MD Unavailable Unavailable Diana Desir [facility] Unavailable [phone] Rich Barrett MD Unavailable Neil Kent MD Unavailable Roney Story DPM Unavailable [phone] Erica Farrell APRN PAPER CUP HANDLE MACHINE OPERATOR Unavailable + Diana Desir [facility] Unavailable Jelena David OD Unavailable Galo Burrell MD Unavailable Unavailable Livan Sharif MD Unavailable Livan Sharif MD Unavailable IsCatherine hobbs MD Unavailable + Valery Veronica PA-C Unavailable [phone] Catherine Cm MD Unavailable + Johnny Murillo MD Unavailable [phone] Brea Quinn ENCAPSULATOR PAPER CUP HANDLE MACHINE OPERATOR Unavailable [phone] Brea uQinn ENCAPSULATOR PAPER CUP HANDLE MACHINE OPERATOR Unavailable [phone] Jose Francisco Johnson MD Unavailable Livan Sharif MD Unavailable + IsCatherine hobbs MD Unavailable + Sydnie Martinez RN Unavailable Unavailable Alfonso Renteria MD Unavailable Esha Grimm PA-C Primary Care Provider Cheng Todd PA-C Unavailable Radha Lomeli ENCAPSULATOR PAPER CUP HANDLE MACHINE OPERATOR Unavailable [phone] Jelena David OD Unavailable [phone] Pao Joseph RN Unavailable Unavailable Esha Grimm-C Unavailable [phone] Valery Veronica PA-C Unavailable [phone] Rey Tay MD Unavailable Rocky Zepeda DO Unavailable Philip Dumont MD Unavailable [phone] Meredith Carrera PA-C Unavailable [phone] Neil Kent MD Unavailable Juan Pablo Emmanuel MD Unavailable Encounter Details Date Type Department Care Team (Late st Contact Info) Description 09/02/2021 MyC Medical Advice [address] [address] Diana Desir, [facility] [address] [place] [address] Social History Tobacco Use Types Packs/Day Years [...] you attend chur ch or pentecostalism services? More than 4 times per year [...] Answer Date Recorded PHQ-2 Score 0 04/02/2021 [facility] of Occupat ional [...] a long term (including now)? No 08/11/2020 [place] Depression Scale Answer Date Recorded [place] [...] COVID-19? No / Unsure 09/02/2021 12:26 PM REPAIRER SHOE STICKS documented as of this encounter Plan of Treatment Upcoming Encounters Date Type Department Care Team (Late st Contact Info) Description 01/09/2024 10:15 AM CDT Office Visit [facility] Neurology [address], [address] [place] [address] Genny Hyman PA-C [facility] Epilepsy Care 5775 [facility] 255 [place], [place] 4[address] [place] [address] [address] [facility] 300 [place], [place] [address] 02/06/2024 10:00 AM CDT Office Visit [facility] [address] [address] Neil Kent MD 500 [place], [place] [address] 03/06/2024 3:00 PM CDT Office Visit [facility] Heart [facility] [address] [place] [phone] Radha Lomeli, ENCAPSULATOR PAPER CUP HANDLE MACHINE OPERATOR [address] [place] [address] 03/07/2024 9:00 AM CDT Hospital Encounter [address] [place] [phone] Rocky Zepeda DO 500 [place], [place] [address] 03/07/2024 9:00 AM CDT - 03/07/2024 9:30 AM CDT Surgery [address] [place] [phone] Rocky Zepeda DO 500 [place], [place] [address] Esophagoscopy, gastroscopy, duodenoscopy (EGD), combined Scheduled Procedures [...] Out COVID-19 05/17/2022 05/17/2022 05/17/2022 10:20 PM REPAIRER SHOE STICKS Rule Out COVID-19 06/09/2022 06/09/2022 06/09/2022 9:35 AM REPAIRER SHOE STICKS COVID-19 06/09/2022 06/09/2022 06/30/2022 11:4 1 PM REPAIRER SHOE STICKS Rule Out COVID-19 11/10/2022 11/10/2022 11/11/2022 12:17 PM CDT Rule Out COVID-19 03/07/2023 03/07/2023 03/07/2023 1:20 PM CDT Rule Out COVID-19 12/26/2023 12/26/2023 12/26/2023 9:50 AM CDT Assessment Noted Time PHQ-9 Depression Total Score: 2 04/02/20 10:19 AM CDT documented as of this encounter Care Teams Director Of Group Counseling Program Relationship Specialty Start Date End Date Marija Edgar APRN PAPER CUP HANDLE MACHINE OPERATOR PCP - General Nurse Practitioner 04/30/20 04/14/23 Esha Grimm PAUcheC [address] [place] [address] PCP - General Family Medicine 05/04/23 Lita Oseguera Personal Advocate & Liaison (PAL) 02/28/20 03/27/23 Marija Edgar APRN PAPER CUP HANDLE MACHINE OPERATOR Assigned PCP 06/08/20 04/29/23 Mynor Broussard MD [address] [address] Assigned Surgical Provider 06/01/20 11/28/21 Keisha Dotson MD 909 [place] [address] Assigned Neuroscience Provider 06/04/20 04/01/23 Galo Burrell MD Assigned Heart and Vascular Provider 10/05/20 04/02/22 Diana Desir, [facility] [address] [place], [place] [id number] Pharmacist Pharmacist 04/17/21 Rain Galaviz PA-C [address] [place] [address] [place] [address] Physician [place] 04/28/21 Summer Lara MD [address] [place] [address] Assigned OBGYN Provider 05/31/21 2 Tavia Wyatt MD [address] [place] [address] Dermatology 07/14/21 Johnny Murillo MD [address] [place] [address] Assigned Musculoskeletal Provider 08/30/21 03/17/22 Erica Farrell APRN PAPER CUP HANDLE MACHINE OPERATOR [address] [facility] [address] [place], [place] [address] Nurse Practitioner Cardiovascular Disease 09/09/21 Teresita Bean, [facility] [address] [place] [address] Pharmacist Pharmacist 09/24/21 09/29/21 Tavia Wyatt MD Assigned Surgical Provider 11/29/21 05/07/22 [facility] [address] [place] [address] Assigned MTM Pharmacist 01/02/22 Rich Barrett MD 516 [facility] [address] [place] [address] Physician Ophthalmology 01/21/22 Neil Kent MD 500 [place] [address] Dermatology 02/24/22 Roney [place] D[place] [address] [facility] [address] [place] [address] Assigned Musculoskeletal Provider 03/20/22 08/13/22 Erica Farrell APRN PAPER CUP HANDLE MACHINE OPERATOR 1700 [place] [address] Assigned Heart and Vascular Provider 04/03/22 04/16/22 [facility] [address] [place] [address] Assigned MTM Pharmacist 04/07/22 Jelena David OD [address] [facility] [place] [address] Assigned Surgical Provider 05/08/22 10/08/22 Galo Burrell MD Assigned Heart and Vascular Provider 04/17/22 06/11/22 Livan Sharif MD [address] [place] [address] Cardiovascular Disease 05/14/22 Livan Sharif MD [address] [place] [address] Assigned Heart and Vascular Provider 06/12/22 07/23/22 Catherine Cm MD [address] [place] [address] [place] [address] Cardiovascular Disease 07/21/22 Valery Veronica, PA-C [address] [place] [address]85 Physician [place] Derm[facility] 07/21/22 Catherine Cm MD [address] [place] [place] [address] Assigned Heart and Vascular Provider 07/24/22 11/05/22 Johnny Murillo MD [address] [place] [address] Assigned Musculoskeletal Provider 08/14/22 10/08/22 Brea Quinn APRN PAPER CUP HANDLE MACHINE OPERATOR [address] [place] [address] 394285 Nurse Practitioner Dermatology 09/21/22 Brea Quinn APRN PAPER CUP HANDLE MACHINE OPERATOR [address] [place] [address] Assigned Surgical Provider 10/09/22 [place] [address] [place] [address]88457 Assigned Musculoskeletal Provider 10/09/22 Livan Sharif MD [address] [place] [address] [place] 54[address]75 Assigned Heart and Vascular Provider 11/06/22 11/12/22 Catherine Cm MD [address] [place] [address] Assigned Heart and Vascular Provider 11/13/22 05/27/23 Sydnie Martinez RN Personal Advocate & Liaison (PAL) Family Medicine 03/28/23 07/31/23 Alfonso Renteria MD [address] [facility] [address] [place], [place] 3[address] Assigned Neuroscience Provider 04/02/23 Cheng Todd PA-C [address] [place] [address] [id number] Assigned PCP 04/30/23 07/15/23 Radha Lomeli APRN PAPER CUP HANDLE MACHINE OPERATOR [address] [place], [place] [address] Assigned Heart and Vascular Provider 05/28/23 Jelena David OD [address] [facility] [place] [address] Ophthalmology 06/15/23 Pao Joseph, VJ Personal Advocate & Liaison (PAL) Nurse 08/01/23 11/07/23 Esha Grimm PA-C [address] [place] [phone] Assigned PCP 07/16/23 Valery Veronica PA-C 909 [place], [place] [address] Physician [place] Dermat[facility] 09/19/23 Rey Tay MD 9 [place], [place] [address] MD Gastroenterology 09/20/23 Rocky Zepeda DO [address] [place] [address] Physician Gastroenterology 09/20/23 Philip Dumont MD [address] [place] [address] 268405 Physician Ophthalmology 09/22/23 Meredith Carrera PA-C [address] [place] [address] Assigned Gastroenterology Provider 11/01/23 Neil Kent MD [address] 6565[address] Dermatology 11/02/23 [place] [address] [place] 12[address]27 Neurological Surgery 12/26/23 documented as of this encounter
--- OUTSIDE RECORDS SUMMARY | 2024-01-07 18:15 | XMS_ITS | Encounter Summary ---
Author Organization [place] Address [address] [place] [address] Care Team Providers Care Middleware Administrator Name Role Phone Lita Oseguera Unavailable Unavailable Marija Edgar APRN DESIGN ARCHITECT Primary Care Provider U Marija Bella APRN DESIGN ARCHITECT Unavailable Unavail able Mynor Broussard MD Unavailable [phone] Keisha Dotson MD Unavailable [phone] Galo Burrell MD Unavailable Unavailable Diana Desir [facility] Unavailable [phone] Rain Galaviz PA-C Unavailable Summer Lara MD Unavailable [phone] Tavia Wyatt MD Unavailable Unavailable Johnny Murillo MD Unavailable Erica Farrell APRN DESIGN ARCHITECT Unavailable Tavia Wyatt MD Unavailable Unavailable Diana Desir [facility] Unavailable [phone] Rich Barrett MD Unavailable [phone] Neil Kent MD Unavailable Roney StoryM Unavailable [phone] Erica Farrell APRN DESIGN ARCHITECT Unavailable Diana Desir [facility] Unavailable [phone] Jelena David OD Unavailable Galo Burrell MD Unavailable Unavailable Livan Sharif MD Unavailable Livan Sharif MD Unavailable IsCatherine hobbs MD Unavailable + Valery Veronica PA-C Unavailable [phone] Catherine Cm MD Unavailable + Johnny Murillo MD Unavailable [phone] Brea Quinn CARGO CHECKER DESIGN ARCHITECT Unavailable [phone] Brea Quinn CARGO CHECKER DESIGN ARCHITECT Unavailable [phone] Jose Francisco Johnson MD Unavailable Livan Sharif MD Unavailable + IsCatherine hobbs MD Unavailable + Sydnie Martinez RN Unavailable Unavailable Alfonso Renteria MD Unavailable [phone] Esha Grimm PA-C Primary Care Provider Cheng Todd PA-C Unavailable Radha Lomeli APRN DESIGN ARCHITECT Unavailable [phone] Jelena David OD Unavailable Pao Joseph RN Unavailable Unavailable Esha Grimm PA-C Unavailable [phone] Valery Veronica PA-C Unavailable [phone] Rey Tay MD Unavailable Rocky Zepeda DO Unavailable Philip Dumont MD Unavailable [phone] Meredith Carrera PA-C Unavailable Neil Kent MD Unavailable Juan Pablo Emmanuel MD Unavailable [phone] Encounter Details Date Type Department Care Team (Late st Contact Info) Description 11/16/2021 MyC Medical Advice [address] [address] Diana Desir, [facility] [address] [place] [address] Social History Tobacco Use Types Packs/Day Years [...] How often do you attend synagogue or temple serv ices? Never 09/22/2021 Do you belong [...] Answer Date Recorded PHQ-2 Score 2 09/22/2021 [facility] of Occupat ional Health - Occupational Stress [...] a long term (including now)? No 09/22/2021 [place] Depression Scale Answer Date Recorded [place] Depression Score 5 01/14/2021 Last EPDS Self [...] Office Visit [facility] Neurology [address], [address] [place] [phone] Genny Hyman [facility] Epilepsy [facility] 5775 [facility] 255 [place], [place] 69[address] [place] [address] [facility] 300 [place], [place] [address] 02/06/2024 10:00 AM CDT Office Visit [facility] [address] [phone] Neil Kent MD 500 [place] [address] 03/06/2024 3:00 PM CDT Office Visit [facility] Heart [facility] [address] [facility] [address] [place] [phone] Armani Radha E, CARGO CHECKER DESIGN ARCHITECT [address] [place] [address] 03/07/2024 9:00 AM CDT Hospital Encounter [address]th [place] [phone] Rocky Zepeda DO 500 [place], [place] [address] 03/07/2024 9:00 AM CDT - 03/07/2024 9:30 AM CDT Surgery [address] [phone] Rocky Zepeda DO 500 [place], [place] [address] Esophagoscopy, gastroscopy, duodenoscopy (EGD), combined Scheduled Procedures [...] COVID-19 05/17/2022 05/17/2022 05/17/2022 10:20 PM FAMILY LIVING EDUCATOR Rule Out COVID-19 06/09/2022 06/09/2022 06/09/2022 9:35 AM FAMILY LIVING EDUCATOR COVID-19 06/09/2022 06/09/2022 06/30/2022 11:4 1 PM FAMILY LIVING EDUCATOR Rule Out COVID-19 11/10/2022 11/10/2022 11/11/2022 12:17 PM CDT Rule Out COVID-19 03/07/2023 03/07/2023 03/07/2023 1:20 PM CDT Rule Out COVID-19 12/26/2023 12/26/2023 12/26/2023 9:50 AM CDT Assessment Noted Time PHQ-9 Depression Total Score: 2 04/02/20 10:19 AM CDT documented as of this encounter Care Teams Middleware Administrator Relationship Specialty Start Date End Date Marija Edgar APRN DESIGN ARCHITECT PCP - General Nurse Practitioner 04/30/20 04/14/23 Esha Grimm PA-C [address] [place] [address] PCP - General Family Medicine 05/04/23 Lita Oseguera Personal Advocate & Liaison (PAL) 02/28/20 03/27/23 Marija Edgar APRN DESIGN ARCHITECT Assigned PCP 06/08/20 04/29/23 Mynor Broussard MD [address] 8155[address] Assigned Surgical Provider 06/01/20 11/28/21 Keisha Dotson MD 909 [place], [place] [address] Assigned Neuroscience Provider 06/04/20 04/01/23 Galo Burrell MD Assigned Heart and Vascular Provider 10/05/20 04/02/22 Diana Desir, [facility] [address] [place], [place] [address] Pharmacist Pharmacist 04/17/21 Rain Galaviz PA-C [address] [place] [address] [place] [address] Physician Diabetes Physician Dermatology 04/28/21 Summer Lara MD [address] [place] [address] Assigned OBGYN Provider 05/31/21 2 Tavia Wyatt MD [address] [place] [address] Dermatology 07/14/21 Johnny Murillo MD [address] [facility] [address] [place] [address] Assigned Musculoskeletal Provider 08/30/21 03/17/22 Erica Farrell APRN [facility] 6405 [facility] [address] [place] [address] Nurse Practitioner Cardiovascular Disease 09/09/21 Tavia Wyatt MD Assigned Surgical Provider 11/29/21 05/07/22 Diana Desir, [facility] [address] [place] [address] Assigned MTM Pharmacist 01/02/22 Rich Barrett MD 516 [facility], [address] 8[address] Physician Ophthalmology 01/21/22 Neil Kent MD 500 [place], [place] [address] Dermatology 02/24/22 Roney Story DPM [address] [facility] [address] [place] [address] Assigned Musculoskeletal Provider 03/20/22 08/13/22 Erica Farrell APRN DESIGN ARCHITECT 1700 [place] [address] Assigned Heart and Vascular Provider 04/03/22 04/16/22 Diana Desir, [facility] [address] [place], [place] 1537[address] Assigned MTM Pharmacist 04/07/22 Jelena David OD [address] [facility] [place] [address] Assigned Surgical Provider 05/08/22 10/08/22 Galo Burrell MD Assigned Heart and Vascular Provider 04/17/22 06/11/22 Livan Sharif MD [address], [address] [place] [address] Cardiovascular Disease 05/14/22 Livan Sharif MD [address], [address] [place] [address] Assigned Heart and Vascular Provider 06/12/22 07/23/22 Catherine Cm MD [address] [place] [address] Cardiovascular Disease 07/21/22 Valery Veronica PAUcheC 909 [place] [address] Physician Diabetes Physician Dermatology 07/21/22 Catherine Cm MD [address] [facility] [address] [place] [address] Assigned Heart and Vascular Provider 07/24/22 11/05/22 Johnny Murillo MD [address] [address] Assigned Musculoskeletal Provider 08/14/22 10/08/22 Brea Quinn APRN DESIGN ARCHITECT [address] [place] [address] 883535 Nurse Practitioner Dermatology 09/21/22 Brea Quinn APRN DESIGN ARCHITECT [address] [place] [address] [place] 459382 Assigned Surgical Provider 10/09/22 [place] [address] 382407 Assigned Musculoskeletal Provider 10/09/22 Livan Sharif MD [address], [facility] [address] [place] [address] Assigned Heart and Vascular Provider 11/06/22 11/12/22 Catherine Cm MD [address] [email or web address] [place] [address] Assigned Heart and Vascular Provider 11/13/22 05/27/23 Sydnie Martinez RN Personal Advocate & Liaison (PAL) Family Medicine 03/28/23 07/31/23 Alfonso Renteria MD 5775 [facility] [address] 200 [place] [address] Assigned Neuroscience Provider 04/02/23 Cheng Todd PA-C [address] [place] [address] Assigned PCP 04/30/23 07/15/23 Radha Lomeli APRN DESIGN ARCHITECT 6405 [facility] [address] [place] [address] Assigned Heart and Vascular Provider 05/28/23 Jelena David OD [address] [facility] [place] [address] Ophthalmology 06/15/23 Pao Joseph, VJ Personal Advocate & Liaison (PAL) Nurse 08/01/23 11/07/23 Esha Grimm PA-C [address] [place] [address] Assigned PCP 07/16/23 Valery Veronica PA-C [address] [place] [address]255 Physician Diabetes Physician Dermatology 09/19/23 Rey Tay MD 9 [place] [address] Gastroenterology 09/20/23 Rocky Zepeda DO 500 [place] [address] Physician Gastroenterology 09/20/23 Philip Dumont MD [address] [place] [address] Physician Ophthalmology 09/22/23 Meredith Carrera PA-C [address] [place] [address] Assigned Gastroenterology Provider 11/01/23 Neil Kent MD [address] [address] Dermatology 11/02/23 [place] [address] [address] Neurological Surgery 12/26/23 documented as of this encounter
--- OUTSIDE RECORDS SUMMARY | 2024-01-07 18:15 | XMS_ITS | Encounter Summary ---
Author Organization [facility] Address [address] [place] [address] Care Team Providers Care Environmental Restoration Planner Name Role Phone Lita Oseguera Unavailable Unavailable Marija Edgar APRN TELECOMMUNICATIONS ENGINEER Primary Care Provider U Marija Bella APRN TELECOMMUNICATIONS ENGINEER Unavailable Unavail able Mynor Broussard MD Unavailable [phone] Keisha Dotson MD Unavailable Galo Burrell MD Unavailable Unavailable Diana Desir [facility] Unavailable [phone] Rain Galaivz PA-C Unavailable Summer Lara MD Unavailable [phone] Tavia Wyatt MD Unavailable Unavailable Johnny Murillo MD Unavailable [phone] Erica Farrell APRN TELECOMMUNICATIONS ENGINEER Unavailable Tavia Wyatt MD Unavailable Unavailable Diana Desir [facility] Unavailable [phone] Rich Barrett MD Unavailable [phone] Neil Kent MD Unavailable Roney StoryM Unavailable [phone] Erica Farrell APRN TELECOMMUNICATIONS ENGINEER Unavailable Diana Desir [facility] Unavailable +[phone] Jelean David OD Unavailable [phone] Galo Burrell MD Unavailable Unavailable Livan Sharif MD Unavailable Livan Sharif MD Unavailable IsCatherine hobbs MD Unavailable + Valery Veronica PA-C Unavailable [phone] Catherine Cm MD Unavailable + Johnny Murillo MD Unavailable [phone] Brea Quinn CARE MANAGER TELECOMMUNICATIONS ENGINEER Unavailable [phone] Brea Quinn CARE MANAGER TELECOMMUNICATIONS ENGINEER Unavailable [phone] Jose Francisco Johnson MD Unavailable Livan Sharif MD Unavailable + IsCatherine hobbs MD Unavailable + Sydnie Martinez RN Unavailable Unavailable Alfonso Renteria MD Unavailable [phone] Esha Grimm PA-C Primary Care Provider Cheng Todd PA-C Unavailable Radha Lomeli APRN TELECOMMUNICATIONS ENGINEER Unavailable [phone] Jelena David OD Unavailable Pao Joseph RN Unavailable Unavailable Esha Grimm PA-C Unavailable [phone] Valery Veronica PA-C Unavailable [phone] Rey Tay MD Unavailable Rocky Zepeda DO Unavailable Philip Dumont MD Unavailable [phone] Meredith Carrera PA-C Unavailable [phone] Neil Kent MD Unavailable Juan Pablo Emmanuel MD Unavailable [phone] Encounter Details Date Type Department Care Team (Late st Contact Info) Description 10/28/2021 MyC Medical Advice [facility] Heart [facility] [address] [facility] [address] [place] [address] Erica Farrell APRN TELECOMMUNICATIONS ENGINEER 1700 [place] [address] Social History Tobacco Use Types Packs/Day Years [...] How often do you attend amish or episcopal serv ices? Never 09/22/2021 Do [...] Answer Date Recorded PHQ-2 Score 2 09/22/2021 [facility] - [...] in a correction (including now)? No 09/22/2021 Jupiter Depression Scale Answer Date Recorded Jupiter Depression Score 5 01/14/2021 Last EPDS Self [...] Description 01/09/2024 10:15 AM CDT Office Visit [facility] Neurology [address], [address] [place] [address] [facility] Epilepsy Care 5775 [facility] 255 [place], [place] [address] [place] [address] [facility] 300 [place], [place] [address] 02/06/2024 10:00 AM CDT Office Visit [facility] [address] [address] Neil Kent MD 500 [place], [place] [address] 03/06/2024 3:00 PM CDT Office Visit [facility] Heart [facility] [address] [facility] [address] [place] [address] Radha Lomeli, CARE MANAGER TELECOMMUNICATIONS ENGINEER [address] [place] [address] 03/07/2024 9:00 AM CDT Hospital Encounter [facility] OR [address] 5th [place] [phone] Rocky Zepeda DO 500 [place] [address] 03/07/2024 9:00 AM CDT - 03/07/2024 9:30 AM CDT Surgery [facility] OR [address] [phone] Rocky Zepeda DO 500 [place], [place] 48[address] Esophagoscopy, gastroscopy, duodenoscopy (EGD), combined Scheduled Procedures [...] Out COVID-19 05/17/2022 05/17/2022 05/17/2022 10:20 PM FORMULA BOTTLER Rule Out COVID-19 06/09/2022 06/09/2022 06/09/2022 9:35 AM FORMULA BOTTLER COVID-19 06/09/2022 06/09/2022 06/30/2022 11:4 1 PM FORMULA BOTTLER Rule Out COVID-19 11/10/2022 11/10/2022 11/11/2022 12:17 PM CDT Rule Out COVID-19 03/07/2023 03/07/2023 03/07/2023 1:20 PM CDT Rule Out COVID-19 12/26/2023 12/26/2023 12/26/2023 9:50 AM CDT Assessment Noted Time PHQ-9 Depression Total Score: 2 04/02/20 10:19 AM CDT documented as of this encounter Care Teams Environmental Restoration Planner Relationship Specialty Start Date End Date Marija Edgar APRN TELECOMMUNICATIONS ENGINEER PCP - General Nurse Practitioner 04/30/20 04/14/23 Esha Grimm PA-C [address] [place] [phone] PCP - General Family Medicine 05/04/23 Lita Oseguera Personal Advocate & Liaison (PAL) 02/28/20 03/27/23 Marija Edgar APRN TELECOMMUNICATIONS ENGINEER Assigned PCP 06/08/20 04/29/23 Mynor Broussard MD [address] [address] Assigned Surgical Provider 06/01/20 11/28/21 Keisha Dotson MD 909 [place] [address] Assigned Neuroscience Provider 06/04/20 04/01/23 Galo Burrell MD Assigned Heart and Vascular Provider 10/05/20 04/02/22 Diana Desir, [facility] 3033 [place], [place] [address] Pharmacist Pharmacist 04/17/21 Rain Galaviz PA-C [address] [facility] [address] [facility] [place] [address] Physician Configuration Engineer Dermatology 04/28/21 Summer Lara MD [address] [place] [address] Assigned OBGYN Provider 05/31/21 2 Tavia Wyatt MD [address] [place] [address] Dermatology 07/14/21 Johnny Murillo MD [address] [facility] [address] [place] [address] Assigned Musculoskeletal Provider 08/30/21 03/17/22 Erica Farrell APRN TELECOMMUNICATIONS ENGINEER [address] [facility] [address] [place] [address] Nurse Practitioner Cardiovascular Disease 09/09/21 Tavia Wyatt MD Assigned Surgical Provider 11/29/21 05/07/22 Diana Desir, [facility] [address] [place] [address] Assigned MTM Pharmacist 01/02/22 Rich Barrett MD [address] [phone] Physician Ophthalmology 01/21/22 Neil Kent MD [address] [place] [address] 392275 Dermatology 02/24/22 Roney Story DPM [address] [facility] [address] [place] [address] Assigned Musculoskeletal Provider 03/20/22 08/13/22 Erica Farrell APRN TELECOMMUNICATIONS ENGINEER 17[address] [place] [address] Assigned Heart and Vascular Provider 04/03/22 04/16/22 Diana Desir, [facility] 3033 [place], [place] 394786 Assigned MTM Pharmacist 04/07/22 Jelena David OD [address] [facility] [place] [address] Assigned Surgical Provider 05/08/22 10/08/22 Galo Burrell MD Assigned Heart and Vascular Provider 04/17/22 06/11/22 Livan Sharif MD [address] [place] [address] Cardiovascular Disease 05/14/22 Livan Sharif MD [address], [address] [place] [address] Assigned Heart and Vascular Provider 06/12/22 07/23/22 Catherine Cm MD [address] [address] [place] [address] Cardiovascular Disease 07/21/22 Valery Veronica, PAUcheC 909 [place] [address] Physician Configuration Engineer Dermatology 07/21/22 Catherine Cm MD [address] [facility] [address] [place] [address] Assigned Heart and Vascular Provider 07/24/22 11/05/22 Johnny Murillo MD [facility] [address] [address] Assigned Musculoskeletal Provider 08/14/22 10/08/22 Brea Quinn APRN TELECOMMUNICATIONS ENGINEER [address] [place] [address] 693415 Nurse Practitioner Dermatology 09/21/22 Brea Quinn APRN TELECOMMUNICATIONS ENGINEER [address] [place] [address] [place] 766822 Assigned Surgical Provider 10/09/22 [place] [address] 481087 Assigned Musculoskeletal Provider 10/09/22 Livan Sharif MD [address] [place], [facility] [address] [place] [address] Assigned Heart and Vascular Provider 11/06/22 11/12/22 Catherine Cm MD [address] [facility]00 [place] [address] Assigned Heart and Vascular Provider 11/13/22 05/27/23 Sydnie Martinez RN Personal Advocate & Liaison (PAL) Family Medicine 03/28/23 07/31/23 Alfonso Renteria MD 5775 [facility] [address] 200 [place] [address] Assigned Neuroscience Provider 04/02/23 Cheng Todd PA-C [address] [place] [address] Assigned PCP 04/30/23 07/15/23 Radha Lomeli APRN TELECOMMUNICATIONS ENGINEER 6[address] [facility] [address] [place] [address] Assigned Heart and Vascular Provider 05/28/23 Jelena David OD [address] [facility] [place] [address] Ophthalmology 06/15/23 Pao Joseph, VJ Personal Advocate & Liaison (PAL) Nurse 08/01/23 11/07/23 Esha Grimm PA-C [address] [place] [address] Assigned PCP 07/16/23 Valery Veronica PA-C [address] [place] [address]500[address] Physician Configuration Engineer Dermatology 09/19/23 Rey Tay MD 909 [place] [address] Gastroenterology 09/20/23 Rocky Zepeda DO [address] [place] [address] Physician Gastroenterology 09/20/23 Philip Dumont MD [address] [place] [address] Physician Ophthalmology 09/22/23 Meredith Carrera PA-C [address] [place] [address] Assigned Gastroenterology Provider 11/01/23 Neil Kent MD [address] [place] [address] Dermatology 11/02/23 [place] [address] RAZO [address] [place] [address] 287167 Neurological Surgery 12/26/23 documented as of this encounter
--- OUTSIDE RECORDS SUMMARY | 2024-01-07 18:15 | XMS_ITS | Encounter Summary ---
Author Organization [facility] Address [address] [place] [address] Care Team Providers Care Clinical Trials Data Coordinator Name Role Phone Lita Oseguera Unavailable Unavailable Marija Edgar APRN CORRUGATED SHEET MATERIAL SHEETER Primary Care Provider U Marija Bella APRN CORRUGATED SHEET MATERIAL SHEETER Unavailable Unavail able Mynor Broussard MD Unavailable [phone] Keisha Dotson MD Unavailable [phone] Galo Burrell MD Unavailable Unavailable Diana Desir [facility] Unavailable Rain Galaviz PA-C Unavailable Summer Lara MD Unavailable [phone] Tavia Wyatt MD Unavailable Unavailable Johnny Murillo MD Unavailable Erica Farrell APRN CORRUGATED SHEET MATERIAL SHEETER Unavailable Tavia Wyatt MD Unavailable Unavailable Diana Desir [facility] Unavailable [phone] Rich Barrett MD Unavailable [phone] Neil Kent MD Unavailable Roney StoryM Unavailable [phone] Erica Farrell APRN CORRUGATED SHEET MATERIAL SHEETER Unavailable Diana Desir [facility] Unavailable [phone] Jelena David OD Unavailable Galo Burrell MD Unavailable Unavailable Livan Sharif MD Unavailable Livan Sharif MD Unavailable IsCatherine hobbs MD Unavailable + Valery Veronica PA-C Unavailable [phone] Catherine Cm MD Unavailable + Johnny Murillo MD Unavailable [phone] Brea Quinn OUTPATIENT SCHEDULER CORRUGATED SHEET MATERIAL SHEETER Unavailable [phone] Brea Quinn OUTPATIENT SCHEDULER CORRUGATED SHEET MATERIAL SHEETER Unavailable [phone] Jose Francisco Johnson MD Unavailable Livan Sharif MD Unavailable + IsCatehrine hobbs MD Unavailable + Sydnie Martinez RN Unavailable Unavailable Alfonso Renteria MD Unavailable [phone] Esha Grimm PA-C Primary Care Provider Cheng Todd PA-C Unavailable Radha Lomeli APRN CORRUGATED SHEET MATERIAL SHEETER Unavailable [phone] Jelena David OD Unavailable Pao Joseph RN Unavailable Unavailable Esha Grimm PA-C Unavailable [phone] Valery Veronica PA-C Unavailable [phone] Rey Tay MD Unavailable Rocky Zepeda DO Unavailable Philip Dumont MD Unavailable [phone] Meredith Carrera PA-C Unavailable Neil Kent MD Unavailable Juan Pablo Emmanuel MD Unavailable [phone] Encounter Details Date Type Department Care Team (Late st Contact Info) Description 11/04/2021 MyC Medical Advice [address] [address] Diana Desir, [facility] 3033 [place] [address] Social History Tobacco Use Types Packs/Day Years [...] How often do you attend hoahaoism or pentecostal serv ices? Never 09/22/2021 Do [...] Answer Date Recorded PHQ-2 Score 2 09/22/2021 [facility] - Occupational Stress [...] in a intermediate (including now)? No 09/22/2021 Steptoe Depression Scale Answer Date Recorded Steptoe Depression Score 5 01/14/2021 Last EPDS Self [...] AM CDT Office Visit [facility] Neurology [address], [address] [place] [phone] Genny Hyman PAUcheC [facility] Epilepsy [facility] 5775 [facility] 255 [place], [place] [address] [place] [address] [facility] 300 [place], [place] [address] 02/06/2024 10:00 AM CDT Office Visit [facility] [address] [phone] Neil Kent MD 500 [place] [address] 03/06/2024 3:00 PM CDT Office Visit [facility] Heart [facility] [address] [facility] [address] [place] [phone] Armani Radha E, OUTPATIENT SCHEDULER CORRUGATED SHEET MATERIAL SHEETER [address] [place] [address] 03/07/2024 9:00 AM CDT Hospital Encounter [address] 5th [place] [phone] Rocky Zepeda DO 500 [place], [place] [address]255 03/07/2024 9:00 AM CDT - 03/07/2024 9:30 AM CDT Surgery [address] [phone] Rocky Zepeda DO 500 [place], [place] 415[address] Esophagoscopy, gastroscopy, duodenoscopy (EGD), combined Scheduled Procedures [...] Out COVID-19 05/17/2022 05/17/2022 05/17/2022 10:20 PM LAY OUT INSPECTOR Rule Out COVID-19 06/09/2022 06/09/2022 06/09/2022 9:35 AM LAY OUT INSPECTOR COVID-19 06/09/2022 06/09/2022 06/30/2022 11:4 1 PM LAY OUT INSPECTOR Rule Out COVID-19 11/10/2022 11/10/2022 11/11/2022 12:17 PM CDT Rule Out COVID-19 03/07/2023 03/07/2023 03/07/2023 1:20 PM CDT Rule Out COVID-19 12/26/2023 12/26/2023 12/26/2023 9:50 AM CDT Assessment Noted Time PHQ-9 Depression Total Score: 2 04/02/20 10:19 AM CDT documented as of this encounter Care Teams Clinical Trials Data Coordinator Relationship Specialty Start Date End Date Marija Edgar APRN CORRUGATED SHEET MATERIAL SHEETER PCP - General Nurse Practitioner 04/30/20 04/14/23 Esha Grimm PA-C [address] [place] [address] PCP - General Family Medicine 05/04/23 Lita Oseguera Personal Advocate & Liaison (PAL) 02/28/20 03/27/23 Marija Edgar APRN CORRUGATED SHEET MATERIAL SHEETER Assigned PCP 06/08/20 04/29/23 Mynor Broussard MD [address] 921065 Assigned Surgical Provider 06/01/20 11/28/21 Keisha Dotson MD 909 [place], [place] 5[address] Assigned Neuroscience Provider 06/04/20 04/01/23 Galo Burrell MD Assigned Heart and Vascular Provider 10/05/20 04/02/22 Diana Desir, [facility] 3033 [place], [place] [address] Pharmacist Pharmacist 04/17/21 Rain Galaviz PA-C [address] [place] [address] [place] [address] Physician Accounting System Expert Dermatology 04/28/21 Summer Lara MD [address] [place] [address] Assigned OBGYN Provider 05/31/21 2 Tavia Wyatt MD [address] [place] [address] Dermatology 07/14/21 Johnny Murillo MD [address] [facility] [address] [place] [address] Assigned Musculoskeletal Provider 08/30/21 03/17/22 Erica Farrell APRN [facility] [address] [facility] [address] [place] [address] Nurse Practitioner Cardiovascular Disease 09/09/21 Tavia Wyatt MD Assigned Surgical Provider 11/29/21 05/07/22 Diana Desir, [facility] [address] [place] [address] Assigned MTM Pharmacist 01/02/22 Rich Barrett MD 516 [facility], [address] [address] Physician Ophthalmology 01/21/22 Neil Kent MD 500 [place], [place] 3[address]35 Dermatology 02/24/22 Roney Story DPM [address] [facility] [address] [place] [address] Assigned Musculoskeletal Provider 03/20/22 08/13/22 Erica Farrell APRN CORRUGATED SHEET MATERIAL SHEETER 1700 [place] [address] Assigned Heart and Vascular Provider 04/03/22 04/16/22 Diana Desir, [facility] 30[address] [place], [place] 734726 Assigned MTM Pharmacist 04/07/22 Jelena David OD [address] [facility] [place] [address] Assigned Surgical Provider 05/08/22 10/08/22 Galo Burrell MD Assigned Heart and Vascular Provider 04/17/22 06/11/22 Livan Sharif MD [address] [place] [address] Cardiovascular Disease 05/14/22 Livan Sharif MD [address] [place] [address] Assigned Heart and Vascular Provider 06/12/22 07/23/22 Catherine Cm MD [address] [address] [place] 4[address] Cardiovascular Disease 07/21/22 Valery Veronica PAUcheC 909 [place] [address] Physician Accounting System Expert Dermatology 07/21/22 Catherine Cm MD [address] [facility] [address] [place] [address] Assigned Heart and Vascular Provider 07/24/22 11/05/22 Johnny Murillo MD [address] [address] Assigned Musculoskeletal Provider 08/14/22 10/08/22 Brea Quinn APRN CORRUGATED SHEET MATERIAL SHEETER [address] [place] [address] 987615 Nurse Practitioner Dermatology 09/21/22 Brea Quinn APRN CORRUGATED SHEET MATERIAL SHEETER [address] [place] [address] [place] 594382 Assigned Surgical Provider 10/09/22 [place] [address] 594[address] Assigned Musculoskeletal Provider 10/09/22 Livan Sharif MD [address], [facility] [address] [place] [address] Assigned Heart and Vascular Provider 11/06/22 11/12/22 Catherine Cm MD [address] [facility] [place] [address] Assigned Heart and Vascular Provider 11/13/22 05/27/23 Sydnie Martinez RN Personal Advocate & Liaison (PAL) Family Medicine 03/28/23 07/31/23 Alfonso Renteria MD 5775 [facility] [address] 200 [place] [address] Assigned Neuroscience Provider 04/02/23 Cheng Todd PA-C [address] [place] [address] Assigned PCP 04/30/23 07/15/23 Radha Lomeli APRN CORRUGATED SHEET MATERIAL SHEETER [address] [facility] [address] [place] [address] Assigned Heart and Vascular Provider 05/28/23 Jelena David OD [address] [facility] [place] [address] Ophthalmology 06/15/23 Pao Joseph, VJ Personal Advocate & Liaison (PAL) Nurse 08/01/23 11/07/23 Esha Grimm PA-C [address] [place] [address] Assigned PCP 07/16/23 Valery Veronica PA-C [address] [place] [address]66695 Physician Accounting System Expert Dermatology 09/19/23 Rey Tay MD 9 [place] [address] Gastroenterology 09/20/23 Rocky Zepeda DO 500 [place] [address] Physician Gastroenterology 09/20/23 Philip Dumont MD [address] [place] [address] Physician Ophthalmology 09/22/23 Meredith Carrera PA-C [address] [place] [address] Assigned Gastroenterology Provider 11/01/23 Neil Kent MD [address] [address] Dermatology 11/02/23 [place] [address] [address] Neurological Surgery 12/26/23 documented as of this encounter
--- OUTSIDE RECORDS SUMMARY | 2024-01-07 18:15 | XMS_ITS | Encounter Summary ---
Author Organization [place] Address [address] [place] [address] Care Team Providers Care Cushion Cover Inspector Name Role Phone Lita Oseguera Unavailable Unavailable Marija Edgar APRN FRESH FOODS CLERK Primary Care Provider U Marija Bella APRN FRESH FOODS CLERK Unavailable Unavail able Keisha Dotson MD Unavailable [phone] Galo Burrell MD Unavailable Unavailable Diana Desir [facility] Unavailable Rain Galaviz PA-C Unavailable Summer Lara MD Unavailable [phone] Tavia Wyatt MD Unavailable Unavailable Johnny Murillo MD Unavailable Erica Farrell APRN FRESH FOODS CLERK Unavailable Tavia Wyatt MD Unavailable Unavailable Diana Desir [facility] Unavailable Rich Barrett MD Unavailable [phone] Neil Kent MD Unavailable Roney Story DPM Unavailable [phone] Erica Farrell MOLDING ASSOCIATE FRESH FOODS CLERK Unavailable Diana Desir [facility] Unavailable [phone] Frankie, Jelena Radha OD Unavailable Galo Burrell MD Unavailable Unavailable Livan Sharif MD Unavailable + Livan Sharif MD Unavailable + IsCatherine hobbs MD Unavailable + Valery Veronica PA-C Unavailable [phone] Catherine Cm MD Unavailable + Johnny Murillo MD Unavailable [phone] Brea Quinn MOLDING ASSOCIATE FRESH FOODS CLERK Unavailable [phone] Brea Quinn MOLDING ASSOCIATE FRESH FOODS CLERK Unavailable [phone] Jose Francisco Johnson MD Unavailable Livan Sharif MD Unavailable + Catherine Cm MD Unavailable + Sydnie Martinez RN Unavailable Unavailable Alfonso Renteria MD Unavailable Esha Grimm PA-C Primary Care Provider Cheng Todd PA-C Unavailable Radha Lomeli MOLDING ASSOCIATE FRESH FOODS CLERK Unavailable [phone] Jelena David OD Unavailable [phone] Pao Joseph RN Unavailable Unavailable Esha Grimm PA-C Unavailable [phone] Valery Veronica PA-C Unavailable [phone] Rey Tay MD Unavailable Rocky Zepeda DO Unavailable Philip Dumont MD Unavailable [phone] Meredith Carrera PA-C Unavailable [phone] Neil Kent MD Unavailable Juan Pablo Emmanuel MD Unavailable Encounter Details Date Type Department Care Team (Late st Contact Info) Description 12/03/2021 MyC Medical Advice [facility] [address], [address] [place] [address] Keisha Dotson MD 9 [place] [address] Social History Tobacco Use Types [...] How often do you attend voodoo or mandaeism serv ices? Never 09/22/2021 Do [...] Answer Date Recorded PHQ-2 Score 2 09/22/2021 [facility] - Occupational Stress Questionnaire Answer Date [...] in a jail (including now)? No 09/22/2021 [place] Depression Scale Answer Date Recorded [place] Depression Score 5 01/14/2021 Last EPDS Self [...] Office Visit [facility] Neurology [address], [address] [place] [phone]enny H[address] PA-C [facility] Epilepsy Care 5775 [facility] 255 [place], [place] [address] [place] [address] [facility] 300 [place], [place] [address] 02/06/2024 10:00 AM CDT Office Visit [facility] [address] [phone] Neil Kent MD 500 [place], [place] [address] 03/06/2024 3:00 PM CDT Office Visit [facility] Heart [facility] [address] [facility] [address] [place] [phone] Radha Lomeli APRN FRESH FOODS CLERK [address] [place] [address] 03/07/2024 9:00 AM CDT Hospital Encounter [facility] [address] [place] [address] 5th [place] [phone] Rocky Zepeda, DO 500 [place], [place] [address] 03/07/2024 9:00 AM CDT - 03/07/2024 9:30 AM CDT Surgery [facility] 909 [facility] 5th [place] [phone] Rocky Zepeda, DO 500 [place], [place] [address] Esophagoscopy, gastroscopy, duodenoscopy (EGD), combined Scheduled Procedures [...] Out COVID-19 05/17/2022 05/17/2022 05/17/2022 10:20 PM WINDOWS SERVER ADMINISTRATOR Rule Out COVID-19 06/09/2022 06/09/2022 06/09/2022 9:35 AM WINDOWS SERVER ADMINISTRATOR COVID-19 06/09/2022 06/09/2022 06/30/2022 11:4 1 PM WINDOWS SERVER ADMINISTRATOR Rule Out COVID-19 11/10/2022 11/10/2022 11/11/2022 12:17 PM CDT Rule Out COVID-19 03/07/2023 03/07/2023 03/07/2023 1:20 PM CDT Rule Out COVID-19 12/26/2023 12/26/2023 12/26/2023 9:50 AM CDT Assessment Noted Time PHQ-9 Depression Total Score: 2 04/02/20 10:19 AM CDT documented as of this encounter Care Teams Cushion Cover Inspector Relationship Specialty Start Date End Date Marija Edgar APRN FRESH FOODS CLERK PCP - General Nurse Practitioner 04/30/20 04/14/23 Esha Grimm PA-C [address] [place] [address] PCP - General Family Medicine 05/04/23 Lita Oseguera Personal Advocate & Liaison (PAL) 02/28/20 03/27/23 Marija Edgar APRN FRESH FOODS CLERK Assigned PCP 06/08/20 04/29/23 Keisha Dotson MD 909 [place], [place] [address] Assigned Neuroscience Provider 06/04/20 04/01/23 Galo Burrell MD Assigned Heart and Vascular Provider 10/05/20 04/02/22 Diana Desir, [facility] [address] [place] [address] Pharmacist Pharmacist 04/17/21 Rain Galaviz PA-C [address] [place] [address] [place] [address] Physician Business Department Chair Dermatology 04/28/21 Summer Lara MD [address] [place] [address] Assigned OBGYN Provider 05/31/21 2 Tavia Wyatt MD [address] [place] [address] Dermatology 07/14/21 Johnny Murillo MD [address] [place] [address] Assigned Musculoskeletal Provider 08/30/21 03/17/22 Erica Farrell APRN FRESH FOODS CLERK 6405 [facility] [address] [place] [address] Nurse Practitioner Cardiovascular Disease 09/09/21 Tavia Wyatt MD Assigned Surgical Provider 11/29/21 05/07/22 [facility] [address] [place] [address] Assigned MTM Pharmacist 01/02/22 Rich Barrett MD 516 [facility] 9[address] [place], [place] [address] Physician Ophthalmology 01/21/22 Neil Kent MD 500 [place], [place] [address] Dermatology 02/24/22 [place] [address] [facility] 300 [place], [place] 47[address] Assigned Musculoskeletal Provider 03/20/22 08/13/22 Erica Farrell APRN FRESH FOODS CLERK 1700 [place] [address] Assigned Heart and Vascular Provider 04/03/22 04/16/22 Diana Desir, [facility] [address] [place] [address] Assigned MTM Pharmacist 04/07/22 Jelena David OD [address] [facility] [address] Assigned Surgical Provider 05/08/22 10/08/22 Gaol Burrell MD Assigned Heart and Vascular Provider 04/17/22 06/11/22 Livan Sharif MD [address] [place] [address] Cardiovascular Disease 05/14/22 Livan Sharif MD [address] [place] [address] Assigned Heart and Vascular Provider 06/12/22 07/23/22 Catherine Cm MD [address] [place] [address] Cardiovascular Disease 07/21/22 Valery Veronica PAUcheC 9 [place] [address] Physician Business Department Chair Dermatology 07/21/22 Catherine Cm MD [address] [place] [address] Assigned Heart and Vascular Provider 07/24/22 11/05/22 Johnny Murillo MD [address] [place] [address] Assigned Musculoskeletal Provider 08/14/22 10/08/22 Brea Quinn APRN FRESH FOODS CLERK 500 [place] [address] Nurse Practitioner Dermatology 09/21/22 Brea Quinn APRN FRESH FOODS CLERK [address] [place] [address] Assigned Surgical Provider 10/09/22 [place] [address] [facility] 300 [place] [address] Assigned Musculoskeletal Provider 10/09/22 Livan Sharif MD [address] [facility] [address] [place] [address] Assigned Heart and Vascular Provider 11/06/22 11/12/22 Catherine Cm MD 6405 [facility] [address] [place] [address] Assigned Heart and Vascular Provider 11/13/22 05/27/23 Sydnie Martinez RN Personal Advocate & Liaison (PAL) Family Medicine 03/28/23 07/31/23 Alfonso Renteria MD [address] [facility] 200 [place], [place] [address] Assigned Neuroscience Provider 04/02/23 Cheng Todd PA-C [address] [place] [address] [id number] Assigned PCP 04/30/23 07/15/23 Radha Lomeli APRN FRESH FOODS CLERK 6[address] [facility] [address] [place] [address] Assigned Heart and Vascular Provider 05/28/23 Jelena David OD [address] [facility] [address] Ophthalmology 06/15/23 Pao Joseph, VJ Personal Advocate & Liaison (PAL) Nurse 08/01/23 11/07/23 Esha Grimm PA-C [address] [place] [address] Assigned PCP 07/16/23 Valery Veronica PA-C [address] [place] [address] Physician Business Department Chair Dermatology 09/19/23 Rey Tay MD [address] [place] [address] Gastroenterology 09/20/23 Rocky Zepeda DO [address] [place] [address] [phone] Physician Gastroenterology 09/20/23 Philip Dumont MD [address] [place] [address] Physician Ophthalmology 09/22/23 Meredith Carrera PA-C 909 [place], [place] 8[address] Assigned Gastroenterology Provider 11/01/23 Neil Kent MD [address] [address] Dermatology 11/02/23 [place] [address] [place] [address] Neurological Surgery 12/26/23 documented as of this encounter
--- OUTSIDE RECORDS SUMMARY | 2024-01-07 18:15 | XMS_ITS | Encounter Summary ---
Author Organization [place] Address [address] [place] [address] Care Team Providers Care Speech Communication Instructor Name Role Phone Lita Oseguera Unavailable Unavailable Marija Edgar APRN PROJECT ADMINISTRATIVE ASSISTANT Primary Care Provider U Marija Bella APRN PROJECT ADMINISTRATIVE ASSISTANT Unavailable Unavail able Keisha Dotson MD Unavailable Galo Burrell MD Unavailable Unavailable Diana Desir [facility] Unavailable [phone] Rain Galaviz PA-C Unavailable Summer Lara MD Unavailable [phone] Tavia Wyatt MD Unavailable Unavailable Johnny Murillo MD Unavailable [phone] Erica Farrell APRN PROJECT ADMINISTRATIVE ASSISTANT Unavailable Tavia Wyatt MD Unavailable Unavailable Diana Desir [facility] Unavailable Rich Barrett MD Unavailable [phone] Neil Kent MD Unavailable Roney Story DPM Unavailable [phone] Erica Farrell APPLICATIONS MANAGER PROJECT ADMINISTRATIVE ASSISTANT Unavailable Diana Desir [facility] Unavailable [phone] Frankie, Jelena Radha OD Unavailable Galo Burrell MD Unavailable Unavailable Livan Sharif MD Unavailable + Livan Sharif MD Unavailable + IsCatherine hobbs MD Unavailable + Valery Veronica PA-C Unavailable [phone] Catherine Cm MD Unavailable + Johnny Murillo MD Unavailable [phone] Brea Quinn APPLICATIONS MANAGER PROJECT ADMINISTRATIVE ASSISTANT Unavailable [phone] Brea Quinn APPLICATIONS MANAGER PROJECT ADMINISTRATIVE ASSISTANT Unavailable [phone] Jose Francisco Johnson MD Unavailable Livan Sharif MD Unavailable + Catherine Cm MD Unavailable + Sydnie Martinez RN Unavailable Unavailable Alfonso Renteria MD Unavailable Esha Grimm PA-C Primary Care Provider Cheng Todd PA-C Unavailable Radha Lomeli APPLICATIONS MANAGER PROJECT ADMINISTRATIVE ASSISTANT Unavailable [phone] Jelena David OD Unavailable [phone] Pao Joseph RN Unavailable Unavailable Esha Grimm PA-C Unavailable [phone] Valery Veronica PA-C Unavailable [phone] Rey Tay MD Unavailable Rocky Zepeda DO Unavailable Philip Dumont MD Unavailable [phone] Meredith Carrera PA-C Unavailable [phone] Neil Kent MD Unavailable Juan Pablo Emmanuel MD Unavailable Encounter Details Date Type Department Care Team (Late st Contact Info) Description 12/03/2021 MyC Medical Advice [address] [phone] Debbie Hdez MA Social History Tobacco Use [...] How often do you attend orthodoxy or sabianism serv ices? Never 09/22/2021 Do [...] Answer Date Recorded PHQ-2 Score 2 09/22/2021 [facility] [...] in a long-term (including now)? No 09/22/2021 Stanford Depression Scale Answer Date Recorded Stanford Depression Score 5 01/14/2021 Last EPDS Self [...] CDT Office Visit [facility] Neurology [address], [address] [place] [phone] Genny Hyman PABaldo [facility] Epilepsy [facility] 5775 [facility] 255 [place], [place] [address] [place] [address] [facility] 300 [place], [place] [address] 02/06/2024 10:00 AM CDT Office Visit [facility] [address] [phone] Neil Kent MD 500 [place], [place] [address] 03/06/2024 3:00 PM CDT Office Visit [facility] Heart [facility] [address] [facility] [address] [place] [phone] Radha Lomeli APRN PROJECT ADMINISTRATIVE ASSISTANT 6405 [facility] [address] [place], [place] [address] 03/07/2024 9:00 AM CDT Hospital Encounter [facility] 909 [facility] 5th [place] [phone] Rocky Zepeda DO 500 [place] [address] 03/07/2024 9:00 AM CDT - 03/07/2024 9:30 AM CDT Surgery [facility] 909 [facility] 5th [place] [phone] Rocky Zepeda DO 500 [place], [place] [address] Esophagoscopy, gastroscopy, duodenoscopy (EGD), combined Scheduled Procedures [...] COVID-19 05/17/2022 05/17/2022 05/17/2022 10:20 PM DEPUTY DIRECTOR OF PUBLIC WORKS Rule Out COVID-19 06/09/2022 06/09/2022 06/09/2022 9:35 AM DEPUTY DIRECTOR OF PUBLIC WORKS COVID-19 06/09/2022 06/09/2022 06/30/2022 11:4 1 PM DEPUTY DIRECTOR OF PUBLIC WORKS Rule Out COVID-19 11/10/2022 11/10/2022 11/11/2022 12:17 PM CDT Rule Out COVID-19 03/07/2023 03/07/2023 03/07/2023 1:20 PM CDT Rule Out COVID12/26/2023 12/26/2023 12/26/2023 9:50 AM CDT Assessment Noted Time PHQ-9 Depression Total Score: 2 04/02/20 10:19 AM CDT documented as of this encounter Care Teams Speech Communication Instructor Relationship Specialty Start Date End Date Marija Edgar APRN PROJECT ADMINISTRATIVE ASSISTANT PCP - General Nurse Practitioner 04/30/20 04/14/23 Esha Grimm PA-C [address] [place] [address] PCP - General Family Medicine 05/04/23 Lita Oseguera Personal Advocate & Liaison (PAL) 02/28/20 03/27/23 Marija Edgar APRN PROJECT ADMINISTRATIVE ASSISTANT Assigned PCP 06/08/20 04/29/23 Keisha Dotosn MD 909 [place] [address] Assigned Neuroscience Provider 06/04/20 04/01/23 Galo Burrell MD Assigned Heart and Vascular Provider 10/05/20 04/02/22 Diana Desir, [facility] [address] [place] [address] Pharmacist Pharmacist 04/17/21 Rain Galaviz PA-C [address] [place] [address] [place] [address] Physician Cashier Ticket Selling Dermatology 04/28/21 Summer Lara MD [address] [place] [address] Assigned OBGYN Provider 05/31/21 2 Tavia Wyatt MD [address] [place] [address] Dermatology 07/14/21 Johnny Murillo MD [address] [place] [address] Assigned Musculoskeletal Provider 08/30/21 03/17/22 Erica Farrell APRN PROJECT ADMINISTRATIVE ASSISTANT 6405 [facility] [address] [place] [address] Nurse Practitioner Cardiovascular Disease 09/09/21 Tavia Wyatt MD Assigned Surgical Provider 11/29/21 05/07/22 Diana Desir, [facility] 3033 [place] [address] Assigned MTM Pharmacist 01/02/22 Rich Barrett MD 516 [facility] 9A [place], [place] [address] Physician Ophthalmology 01/21/22 Neil Kent MD 500 [place] [address] Dermatology 02/24/22 [place] [address] [facility] [address] [place], [place] [address] Assigned Musculoskeletal Provider 03/20/22 08/13/22 Erica Farrell APRN PROJECT ADMINISTRATIVE ASSISTANT 1700 [place] [address] Assigned Heart and Vascular Provider 04/03/22 04/16/22 Diana Desir, [facility] 3033 [place], [place] [address] Assigned MTM Pharmacist 04/07/[address] [facility] [place] [address] Assigned Surgical Provider 05/08/22 10/08/22 Galo Burrell MD Assigned Heart and Vascular Provider 04/17/22 06/11/22 Livan Sharif MD [address] [place], [place] [address] Cardiovascular Disease 05/14/22 Livan Sharif MD [address] [place], [place] [address] Assigned Heart and Vascular Provider 06/12/22 07/23/22 Catherine Cm MD [address] [place] [address] Cardiovascular Disease 07/21/22 Valery Veronica, PA-C 909 [place] [address] Physician Cashier Ticket Selling Dermatology 07/21/22 Catherine Cm MD [address] [place], [place] [address] Assigned Heart and Vascular Provider 07/24/22 11/05/22 Johnny Murillo MD [address] [place] [address] Assigned Musculoskeletal Provider 08/14/22 10/08/22 Brea Quinn APRN PROJECT ADMINISTRATIVE ASSISTANT 500 [facility] [place], [place] [address] Nurse Practitioner Dermatology 09/21/22 Brea Quinn APRN PROJECT ADMINISTRATIVE ASSISTANT 6401 [place], [place] 66[address] Assigned Surgical Provider 10/09/22 [place] [address] [address] Assigned Musculoskeletal Provider 10/09/22 Livan Sharif MD [address] [facility] [address] [place] [address] Assigned Heart and Vascular Provider 11/06/22 11/12/22 Catherine Cm MD [address] [facility] [address] [place] [address] Assigned Heart and Vascular Provider 11/13/22 05/27/23 Sydnie Martinez RN Personal Advocate & Liaison (PAL) Family Medicine 03/28/23 07/31/23 Alfonso Renteria MD 5775 [facility] 200 [place] [address] Assigned Neuroscience Provider 04/02/23 Cheng Todd PA-C [address] [place] [address] [id number] Assigned PCP 04/30/23 07/15/23 Radha [place] APRN CNP 6405 [facility] [address] [address] [place] [address] Assigned Heart and Vascular Provider 05/28/23 Jelena David OD [address] [facility] [place] [address] MD Ophthalmology 06/15/23 Pao Joseph, VJ Personal Advocate & Liaison (PAL) Nurse 08/01/23 11/07/23 Esha Grimm PA-C [address] [place] [phone] Assigned PCP 07/16/23 Valery Veronica PA-C [address] [place] [address]37[address] Physician Cashier Ticket Selling Dermatology 09/19/23 Rey Tay MD [address] [place] [address]5045 Gastroenterology 09/20/23 Rocky Zepeda DO [address] [place] [address] 631865 Physician Gastroenterology 09/20/23 Philip Dumont MD [address] [place] [address] 771785 Physician Ophthalmology 09/22/23 Meredith Carrera PA-C [address] [place] [address] [phone] Assigned Gastroenterology Provider 11/01/23 eNil Kent MD [address] [place] [address] Dermatology 11/02/23 [place] [address] [place] [address] Neurological Surgery 12/26/23 documented as of this encounter
--- OUTSIDE RECORDS SUMMARY | 2024-01-07 18:15 | XMS_ITS | Encounter Summary ---
Author Organization [place] Address [address] [place] [address] Care Team Providers Care Senior Qa Automation Engineer Name Role Phone Lita Oseguera Unavailable Unavailable Marija Edgar APRN YOUTH CARE SPECIALIST Primary Care Provider U Marija Bella APRN YOUTH CARE SPECIALIST Unavailable Unavail able Mynor Broussard MD Unavailable [phone] Keisha Dotson MD Unavailable Galo Burrell MD Unavailable Unavailable Diana Desir [facility] Unavailable [phone] Rain Galaviz PA-C Unavailable Summer Lara MD Unavailable [phone] Tavia Wyatt MD Unavailable Unavailable Johnny Murillo MD Unavailable Erica Farrell APRN YOUTH CARE SPECIALIST Unavailable Tavia Wyatt MD Unavailable Unavailable Diana Desir [facility] Unavailable [phone] Rich Barrett MD Unavailable [phone] Neil Kent MD Unavailable Roney StoryM Unavailable [phone] Erica Farrell APRN YOUTH CARE SPECIALIST Unavailable Diana Desir [facility] Unavailable [phone] Jelena David OD Unavailable Galo Burrell MD Unavailable Unavailable Livan Sharif MD Unavailable Livan Sharif MD Unavailable IsCatherine hobbs MD Unavailable + Valery Veronica PA-C Unavailable [phone] Catherine Cm MD Unavailable + Johnny Murillo MD Unavailable [phone] Brea Quinn OUTREACH PROFESSIONAL YOUTH CARE SPECIALIST Unavailable [phone] Brea Quinn OUTREACH PROFESSIONAL YOUTH CARE SPECIALIST Unavailable [phone] Jose Francisco Johnson MD Unavailable Livan Sharif MD Unavailable + IsCatherine hobbs MD Unavailable + Sydnie Martinez RN Unavailable Unavailable Alfonso Renteria MD Unavailable [phone] Esha Grimm PA-C Primary Care Provider Cheng Todd PA-C Unavailable Radha Lomeli APRN YOUTH CARE SPECIALIST Unavailable [phone] Jelena David OD Unavailable Pao Joseph RN Unavailable Unavailable Esha Grimm PA-C Unavailable [phone] Valery Veronica PA-C Unavailable [phone] Rey Tay MD Unavailable Rocky Zepeda DO Unavailable Philip Dumont MD Unavailable [phone] Meredith Carrera PA-C Unavailable [phone] Neil Kent MD Unavailable Juan Pablo Emmanuel MD Unavailable Encounter Details Date Type Department Care Team (Late st Contact Info) Description 10/17/2021 MyC Medical Advice [address] [address] Diana Desir, [facility] [address] [place] [address] Social History Tobacco Use Types Packs/Day Years [...] How often do you attend yazidi or hindu serv ices? Never 09/22/2021 Do [...] Answer Date Recorded PHQ-2 Score 2 09/22/2021 [facility] [place] of Occupat ional Health - Occupational Stress [...] in a correction (including now)? No 09/22/2021 [place] Depression Scale Answer Date Recorded [place] Depression Score 5 01/14/2021 Last EPDS Self [...] Office Visit [facility] Neurology [address], [address] [place] [phone] Genny Hyman, PAUcheC [facility] Epilepsy [facility] 5775 [facility] 255 [place], [place] 7[address] [place] [address] [facility] 300 [place], [place] [address] 02/06/2024 10:00 AM CDT Office [facility] [address] [address] Neil eKnt MD 500 [place], [place] 8[address] 03/06/2024 3:00 PM CDT Office Visit [facility] [address] [place] [phone] Armani Radha E, OUTREACH PROFESSIONAL YOUTH CARE SPECIALIST [address] [place] [address] 03/07/2024 9:00 AM CDT Hospital Encounter [facility] [place] [address]th [place] [phone] Rocky Zepeda DO 500 [place], [place] [address] 03/07/2024 9:00 AM CDT - 03/07/2024 9:30 AM CDT Surgery [address] [phone] Rocky Zepeda DO 500 [place], [place] 9[address] Esophagoscopy, gastroscopy, duodenoscopy (EGD), combined Scheduled Procedures [...] Out COVID-19 05/17/2022 05/17/2022 05/17/2022 10:20 PM VIDEO AND SOUND RECORDER Rule Out COVID-19 06/09/2022 06/09/2022 06/09/2022 9:35 AM VIDEO AND SOUND RECORDER COVID-19 06/09/2022 06/09/2022 06/30/2022 11:4 1 PM VIDEO AND SOUND RECORDER Rule Out COVID-19 11/10/2022 11/10/2022 11/11/2022 12:17 PM CDT Rule Out COVID-19 03/07/2023 03/07/2023 03/07/2023 1:20 PM CDT Rule Out COVID-19 12/26/2023 12/26/2023 12/26/2023 9:50 AM CDT Assessment Noted Time PHQ-9 Depression Total Score: 2 04/02/20 10:19 AM CDT documented as of this encounter Care Teams Senior Qa Automation Engineer Relationship Specialty Start Date End Date Marija Edgar APRN YOUTH CARE SPECIALIST PCP - General Nurse Practitioner 04/30/20 04/14/23 Esha Grimm PA-C [address] [place] [phone] PCP - General Family Medicine 05/04/23 Lita Oseguera Personal Advocate & Liaison (PAL) 02/28/20 03/27/23 Marija Edgar APRN YOUTH CARE SPECIALIST Assigned PCP 06/08/20 04/29/23 Mynor Broussard MD [address] 517535 Assigned Surgical Provider 06/01/20 11/28/21 Keisha Dotson MD [address]09 [place], [place] [address] Assigned Neuroscience Provider 06/04/20 04/01/23 Galo Burrell MD Assigned Heart and Vascular Provider 10/05/20 04/02/22 Diana Desir [facility] [address] [place], [place] [address] Pharmacist Pharmacist 04/17/21 Rain Galaviz PA-C [address] [facility] [place] [address] Physician Instructor Of Spanish Dermatology 04/28/21 Summer Lara MD [address] [place] [address] Assigned OBGYN Provider 05/31/21 2 Tavia Wyatt MD [address] [place] [address] Dermatology 07/14/21 Johnny Murillo MD [address] [place], [place] [address] [place] [address] Assigned Musculoskeletal Provider 08/30/21 03/17/22 Erica Farrell APRN YOUTH CARE SPECIALIST 6405 [facility] [address] [place] [address] Nurse Practitioner Cardiovascular Disease 09/09/21 Tavia Wyatt MD Assigned Surgical Provider 11/29/21 05/07/22 Dinaa Desir, [facility] [address] [place] [address] Assigned MTM Pharmacist 01/02/22 Rich Barrett MD [address] [phone] Physician Ophthalmology 01/21/22 Neil Kent MD [address] [place] [address] Dermatology 02/24/22 Roney Story DPM [address] [facility] [address] [place] [address] Assigned Musculoskeletal Provider 03/20/22 08/13/22 Erica Farrell APRN YOUTH CARE SPECIALIST 17[address] [place] [address] Assigned Heart and Vascular Provider 04/03/22 04/16/22 Diana Desir, [facility] [address] [place], [place] [address] Assigned MTM Pharmacist 04/07/22 Jelena David OD [address] [facility] [place] [address] Assigned Surgical Provider 05/08/22 10/08/22 Galo Burrell MD Assigned Heart and Vascular Provider 04/17/22 06/11/22 Livan Sharif MD [address] [place] [address] Cardiovascular Disease 05/14/22 Livan Sharif MD [address] [place] [address] Assigned Heart and Vascular Provider 06/12/22 07/23/22 Catherine Cm MD [address] [place] [address] Cardiovascular Disease 07/21/22 Valery Veronica, PA-C [address] [place] [address] Physician Instructor Of Spanish Dermatology 07/21/22 Catherine Cm MD [address] [facility] [address] [place] [address] Assigned Heart and Vascular Provider 07/24/22 11/05/22 Johnny Murillo MD [facility] [address] [address] Assigned Musculoskeletal Provider 08/14/22 10/08/22 Brea Quinn APRN YOUTH CARE SPECIALIST [address] [place] [address] 914885 Nurse Practitioner Dermatology 09/21/22 Brea Quinn APRN YOUTH CARE SPECIALIST [address] [place] [address] [place] 835332 Assigned Surgical Provider 10/09/22 [place] [address] [place] [address] [address] Assigned Musculoskeletal Provider 10/09/22 Livan Sharif MD [address] [place] [address] Assigned Heart and Vascular Provider 11/06/22 11/12/22 Catherine Cm MD [address] [facility] [address] [place] [address] Assigned Heart and Vascular Provider 11/13/22 05/27/23 Sydnie Martinez RN Personal Advocate & Liaison (PAL) Family Medicine 03/28/23 07/31/23 Alfonso Renteria MD [address] [facility] [address] [place] [address] Assigned Neuroscience Provider 04/02/23 Cheng Todd PA-C [address] [place] [address] Assigned PCP 04/30/23 07/15/23 Radha Lomeli APRN YOUTH CARE SPECIALIST [address] [facility] [address] [place] [address] Assigned Heart and Vascular Provider 05/28/23 Jelena David OD [facility] [facility] [place] [address] Ophthalmology 06/15/23 Pao Joseph, VJ Personal Advocate & Liaison (PAL) Nurse 08/01/23 11/07/23 Esha Grimm PA-C [address] [place] [address] Assigned PCP 07/16/23 Valery Veronica PA-C [address] [place] [address] Physician Instructor Of Spanish Dermatology 09/19/23 Rey Tay MD [address] [place] [address] Gastroenterology 09/20/23 Rocky Zepeda DO [address] [place] [address] Physician Gastroenterology 09/20/23 Philip Dumont MD [address] [place] [address] Physician Ophthalmology 09/22/23 Meredith Carrera PA-C [address] [place] [address] Assigned Gastroenterology Provider 11/01/23 Neil Kent MD [address] [place] [address] Dermatology 11/02/23 [place] [address] [place] [address] [place] [address] Neurological Surgery 12/26/23 documented as of this encounter
--- OUTSIDE RECORDS SUMMARY | 2024-01-07 18:15 | XMS_ITS | Encounter Summary ---
Author Organization [place] Address [address] [place] [address] Care Team Providers Care It Senior Software Engineer Java Name Role Phone Lita Oseguera Unavailable Unavailable Marija Edgar APRN WEAVER NEEDLE LOOM Primary Care Provider U Marija Bella APRN WEAVER NEEDLE LOOM Unavailable Unavail able Mynor Broussard MD Unavailable Keisha Dotson MD Unavailable [phone] Galo Burrell MD Unavailable Unavailable Diana Desir [facility] Unavailable Rain Galaviz PA-C Unavailable Summer Lara MD Unavailable [phone] Tavia Wyatt MD Unavailable Unavailable Johnny Murillo MD Unavailable Erica Farrell APRN WEAVER NEEDLE LOOM Unavailable Tavia Wyatt MD Unavailable Unavailable Diana Desir [facility] Unavailable [phone] Rich Barrett MD Unavailable [phone] Neil Kent MD Unavailable Roney StoryM Unavailable [phone] Erica Farrell APRN WEAVER NEEDLE LOOM Unavailable Diana Desir [facility] Unavailable [phone] Jelena David OD Unavailable Galo Burrell MD Unavailable Unavailable Livan Sharif MD Unavailable Livan Sharif MD Unavailable IsCatherine hobbs MD Unavailable + Valery Veronica PA-C Unavailable [phone] Catherine Cm MD Unavailable + Johnny Murillo MD Unavailable [phone] Brea Quinn TECHNOLOGY MANAGER WEAVER NEEDLE LOOM Unavailable [phone] Brea Quinn TECHNOLOGY MANAGER WEAVER NEEDLE LOOM Unavailable [phone] Jose Francisco Johnson MD Unavailable Livan Sharif MD Unavailable + IsCatherine hobbs MD Unavailable + Sydnie Martinez RN Unavailable Unavailable Alfonso Renteria MD Unavailable [phone] Esha Grimm PA-C Primary Care Provider Cheng Todd PA-C Unavailable Radha Lomeli APRN WEAVER NEEDLE LOOM Unavailable [phone] Jelena David OD Unavailable Pao Joseph RN Unavailable Unavailable Esha Grimm PA-C Unavailable [phone] Valery Veronica PA-C Unavailable [phone] Rey Tay MD Unavailable Rocky Zepeda DO Unavailable Philip Dumont MD Unavailable [phone] Meredith Carrera PA-C Unavailable Neil Kent MD Unavailable Juan Pablo Emmanuel MD Unavailable [phone] Reason for Visit * Reason Onset Date Comments Refill Request 10/31/2021 sertraline Encounter Details Date Type Department Care Team (Late st Contact Info) Description 10/31/[address] [address] Marija Edgar APRN WEAVER NEEDLE LOOM Refill Request (sertraline) Social History Tobacco Use [...] How often do you attend rastafari or orthodox serv ices? Never 09/22/2021 Do you [...] Answer Date Recorded PHQ-2 Score 2 09/22/2021 [facility] of Occupat ional Health - Occupational [...] in a longterm (including now)? No 09/22/2021 [place] Depression Scale Answer Date Recorded [place] Depression Score 5 01/14/2021 Last EPDS Self [...] - 11/02/2021 8:58 AM CDT Approved per [facility] CPA. Diana Desir PharmD Medication Therapy Management Provider, [facility] Pager: [phone] * Telephone Encounter - Aleyda Scott RN [...] daily. Pt has follow up tomorrow with [facility] pharmacist to continue to work on taper. Appointments in Next Year Nov 03, 2021 3:30 PM Pharmacist Visit with Diana Desir RPH [facility] ([facility] ) [phone] Informed patient that will route refill request [...] can be reached at: Other phone number: [phone] Best Time: ANYTIME Can we leave a detailed message on this number? YES Call taken on 10/31/2021 at 10:31 AM by Amalia Deluca documented in this encounter Plan of Treatment Upcoming Encounters Date Type Department Care Team (Late st Contact Info) Description 01/09/2024 10:15 AM CDT Office Visit [facility] Neurology [address], [address] [place] [phone] Genny Hyman PAUcheC [facility] Epilepsy [facility] 5775 [facility] 255 [place], [place] [address] [place] [address] [facility] 300 [place], [place] [address] 02/06/2024 10:00 AM CDT Office Visit [facility] [address] [phone] Neil Kent MD 500 [place], [place] [address] 03/06/2024 3:00 PM CDT Office Visit [facility] Heart [facility] [address] [facility] [address] [place] [phone] Radha Lomeli APRN WEAVER NEEDLE LOOM [address] [place] [address] 03/07/2024 9:00 AM CDT Hospital Encounter [facility] [place] 909 [facility] 5th [place] [phone] Rocky Zepeda, DO [address] [place], [place] [address] 03/07/2024 9:00 AM CDT - 03/07/2024 9:30 AM CDT Surgery [facility] 909 [facility] 5th [place] [phone] Rocky Zepeda, DO [address] [place], [place] [address] Esophagoscopy, gastroscopy, duodenoscopy (EGD), combined Scheduled Procedures [...] Out COVID-19 05/17/2022 05/17/2022 05/17/2022 10:20 PM FISHER TRAMMEL NET Rule Out COVID-19 06/09/2022 06/09/2022 06/09/2022 9:35 AM FISHER TRAMMEL NET COVID-19 06/09/2022 06/09/2022 06/30/2022 11:4 1 PM FISHER TRAMMEL NET Rule Out COVID-19 11/10/2022 11/10/2022 11/11/2022 12:17 PM CDT Rule Out COVID-19 03/07/2023 03/07/2023 03/07/2023 1:20 PM CDT Rule Out COVID-19 12/26/2023 12/26/2023 12/26/2023 9:50 AM CDT Assessment Noted Time PHQ-9 Depression Total Score: 2 04/02/20 10:19 AM CDT documented as of this encounter Care Teams It Senior Software Engineer Java Relationship Specialty Start Date End Date Marija Edgar APRN WEAVER NEEDLE LOOM PCP - General Nurse Practitioner 04/30/20 04/14/23 Esha Grimm PA-C [address] [place] [phone] PCP - General Family Medicine 05/04/23 Lita Oseguera Personal Advocate & Liaison (PAL) 02/28/20 03/27/23 Marija Edgar APRN WEAVER NEEDLE LOOM Assigned PCP 06/08/20 04/29/23 Mynor Broussard MD [address] [address] Assigned Surgical Provider 06/01/20 11/28/21 Keisha Dotson MD 909 [place], [place] [address] Assigned Neuroscience Provider 06/04/20 04/01/23 Galo Burrell MD Assigned Heart and Vascular Provider 10/05/20 04/02/22 [facility] 3033 [place], [place] [address] Pharmacist Pharmacist 04/17/21 Rain Galaviz PA-C [address] [place] [address] [place] [address] Physician Mri Technologist Dermatology 04/28/21 Summer Lara MD [address] [place] [address] Assigned OBGYN Provider 05/31/21 2 Tavia Wyatt MD [address] [place] [address] Dermatology 07/14/21 Johnny Murillo MD [address] [facility] [address] [place] [address] Assigned Musculoskeletal Provider 08/30/21 03/17/22 Erica Farrell APRN WEAVER NEEDLE LOOM [address] [facility] [address] [place] [address] Nurse Practitioner Cardiovascular Disease 09/09/21 Tavia Wyatt MD Assigned Surgical Provider 11/29/21 05/07/22 Diana Desir, [facility] [address] [place] [address] Assigned MTM Pharmacist 01/02/22 Rich Barrett MD [address] [address] Physician Ophthalmology 01/21/22 Neil Kent MD [address] [place] [address] 319545 Dermatology 02/24/22 Roney Story DPM [address] [facility] [address] [place], [place] [address] Assigned Musculoskeletal Provider 03/20/22 08/13/22 Erica Farrell APRN WEAVER NEEDLE LOOM 1700 [place] [address] Assigned Heart and Vascular Provider 04/03/22 04/16/22 Diana Desir, [facility] [address] [place] [address] Assigned MTM Pharmacist 04/07/22 Jelena David OD [address] [place] [address] Assigned Surgical Provider 05/08/22 10/08/22 Galo Burrell MD Assigned Heart and Vascular Provider 04/17/22 06/11/22 Livan Sharif MD [address] [place] [address] Cardiovascular Disease 05/14/22 Livan Sharif MD [address] [place] [address] Assigned Heart and Vascular Provider 06/12/22 07/23/22 Catherine Cm MD [address] [place] [address] Cardiovascular Disease 07/21/22 Valery Veronica PA-C 909 [place] [address] Physician Mri Technologist Dermatology 07/21/22 Catherine Cm MD [address] [facility] [address] [place] [address] Assigned Heart and Vascular Provider 07/24/22 11/05/22 Johnny Murillo MD [facility] [address] [address] Assigned Musculoskeletal Provider 08/14/22 10/08/22 Brea Quinn APRN WEAVER NEEDLE LOOM [address] [place] [address]665 Nurse Practitioner Dermatology 09/21/22 Brea Quinn APRN WEAVER NEEDLE LOOM [address] [place] [address] [facility] [place] [address]82 Assigned Surgical Provider 10/09/22 [place] [address] [place] [address] [address] Assigned Musculoskeletal Provider 10/09/22 Livan Sharif MD [address] [place] [address] Assigned Heart and Vascular Provider 11/06/22 11/12/22 Catherine Cm MD [address] [place] [address] Assigned Heart and Vascular Provider 11/13/22 05/27/23 Sydnie Martinez, VJ Personal Advocate & Liaison (PAL) Family Medicine 03/28/23 07/31/23 Alfonso Renteria MD 5775 [facility] [address] 200 [place] [address] Assigned Neuroscience Provider 04/02/23 Cheng Todd PA-C [address] [place] [address] [id number] Assigned PCP 04/30/23 07/15/23 Radha Lomeli APRN WEAVER NEEDLE LOOM 6405 [facility] [address] [place] [address] Assigned Heart and Vascular Provider 05/28/23 Jelena David OD [address] [place] [address] Ophthalmology 06/15/23 Pao Joseph, VJ Personal Advocate & Liaison (PAL) Nurse 08/01/23 11/07/23 Esha Grimm PA-C [address] [place] [phone] Assigned PCP 07/16/23 Valery Veronica PA-C [address] [place], [place] [address] Physician Mri Technologist Dermatology 09/19/23 Rey Tay MD 909 [place] [address] Gastroenterology 09/20/23 Rocky Zepeda DO [address] [place] [address] Physician Gastroenterology 09/20/23 Philip Dumont MD [address] [place] [address] Physician Ophthalmology 09/22/23 Meredith Carrera PA-C [address] [place] [address] Assigned Gastroenterology Provider 11/01/23 Neil Kent MD [address] [address] Dermatology 11/02/23 [place] [address] [place] [address] Neurological Surgery 12/26/23 documented as of this encounter
--- OUTSIDE RECORDS SUMMARY | 2024-01-07 18:15 | XMS_ITS | Encounter Summary ---
Author Organization [facility] Address [address] [place] [address] Care Team Providers Care Equipment Technician Name Role Phone Lita Oseguera Unavailable Unavailable Marija Edgar APRN THREAD INSPECTOR Primary Care Provider U Marija Bella APRN THREAD INSPECTOR Unavailable Unavail able Mynor Broussard MD Unavailable [phone] Keisha Dotson MD Unavailable Galo Burrell MD Unavailable Unavailable Diana Desir [facility] Unavailable Rain Galaviz PA-C Unavailable Summer Lara MD Unavailable [phone] Tavia Wyatt MD Unavailable Unavailable Johnny Murillo MD Unavailable Erica Farrell APRN THREAD INSPECTOR Unavailable Teresita Bean [facility] Unavailable Tavia Wyatt MD Unavailable Unavailable Diana Desir [facility] Unavailable [phone] Rich Barrett MD Unavailable Neil Kent MD Unavailable Roney Story DPM Unavailable [phone] Erica Farrell APRN THREAD INSPECTOR Unavailable + Diana Desir [facility] Unavailable Jelena Dvaid OD Unavailable Galo Burrell MD Unavailable Unavailable Livan Sharif MD Unavailable Livan Sharif MD Unavailable IsCatherine hobbs MD Unavailable + Valery Veronica PA-C Unavailable [phone] Catherine Cm MD Unavailable + Johnny Murillo MD Unavailable [phone] Brea Quinn FIELD OBSERVER THREAD INSPECTOR Unavailable [phone] Brea Quinn FIELD OBSERVER THREAD INSPECTOR Unavailable [phone] Jose Francisco Johnson MD Unavailable Livan Sharif MD Unavailable + IsCatherine hobbs MD Unavailable + Sydnie Martinez RN Unavailable Unavailable Alfonso Renteria MD Unavailable Esha Grimm PA-C Primary Care Provider Cheng Todd PA-C Unavailable Radha Lomeli FIELD OBSERVER THREAD INSPECTOR Unavailable [phone] Jelena David OD Unavailable [phone] Pao Joseph RN Unavailable Unavailable Esha Grimm-C Unavailable [phone] Valery Veronica PA-C Unavailable [phone] Rey Tay MD Unavailable Rocky Zepeda DO Unavailable Philip Dumont MD Unavailable [phone] Meredith Carrera PA-C Unavailable [phone] Neil Kent MD Unavailable Juan Pablo Emmanuel MD Unavailable [phone] Encounter Details Date Type Department Care Team (Late st Contact Info) Description 09/24/2021 MyC Medical Advice [facility] [address] [facility] [address] [place] [address] Teresita Bean, [facility] 14[address] [facility] [place] [address] Social History Tobacco Use Types Packs/Day Years [...] How often do you attend evangelical or latter-day serv ices? Never 09/22/2021 Do you belong [...] Answer Date Recorded PHQ-2 Score 2 09/22/2021 [facility] - [...] a group home (including now)? No 09/22/2021 Hannacroix Depression Scale Answer Date Recorded Hannacroix Depression Score 5 01/14/2021 Last EPDS Self [...] Visit [facility] Neurology [address], [address] [place] [address] Genny Hyman PAUcheC [facility] Epilepsy Care 5775 [facility] 255 [place], [place] 87[address] [place] [address] [facility] 300 [place] [address] 02/06/2024 10:00 AM CDT [facility] [address] [address] Neil Kent MD 500 [place], [place] 4[address]35 03/06/2024 3:00 PM CDT Office Visit [facility] [address] [facility] [address] [place] [phone] Radha Lomeli, FIELD OBSERVER THREAD INSPECTOR [address] [place] [address] 03/07/2024 9:00 AM CDT Hospital Encounter [address] 5th [place] [phone] Rocky Zepeda DO 500 [place], [place] [address]335 03/07/2024 9:00 AM CDT - 03/07/2024 9:30 AM CDT Surgery [address] [phone] Rocyk Zepeda DO 500 [place], [place] 771385 Esophagoscopy, gastroscopy, duodenoscopy (EGD), combined Scheduled Procedures Name Priority Associated Diagnoses Date/Ti sd ESOPHAGOGASTRODUODENOSCOPY Eosinophilic esophagitis Esophageal dysphagia 03/07/2024 9:00 [...] Out COVID-19 05/17/2022 05/17/2022 05/17/2022 10:20 PM [employer]F [employer]TING [employer]ER Rule Out COVID-19 06/09/2022 06/09/2022 06/09/2022 9:35 AM [employer]ER COVID-19 06/09/2022 06/09/2022 06/30/2022 11:4 1 PM [employer]ER Rule Out COVID-19 11/10/2022 11/10/2022 11/11/2022 12:17 PM CDT Rule Out COVID-19 03/07/2023 03/07/2023 03/07/2023 1:20 PM CDT Rule Out COVID-19 12/26/2023 12/26/2023 12/26/2023 9:50 AM CDT Assessment Noted Time PHQ-9 Depression Total Score: 2 04/02/20 10:19 AM CDT documented as of this encounter Care Teams Equipment Technician Relationship Specialty Start Date End Date Marija Edgar APRN THREAD INSPECTOR PCP - General Nurse Practitioner 04/30/20 04/14/23 Esha Grimm PA-C [address] [place] [address] PCP - General Family Medicine 05/04/23 Lita Oseguera Personal Advocate & Liaison (PAL) 02/28/20 03/27/23 Marija Egdar APRN THREAD INSPECTOR Assigned PCP 06/08/20 04/29/23 Mynor Broussard MD [address] [address] Assigned Surgical Provider 06/01/20 11/28/21 Keisha Dotson MD 909 [place] [address] Assigned Neuroscience Provider 06/04/20 04/01/23 Galo Burrell MD Assigned Heart and Vascular Provider 10/05/20 04/02/22 Diana Desir, [facility] 3033 [place], [place] [phone] Pharmacist Pharmacist 04/17/21 Rain Galaviz PA-C [address] [facility] [address] [facility] [place] [address] Physician Time Analysis Clerk Dermatology 04/28/21 Summer Lara MD [address] [place], [place] [address] Assigned OBGYN Provider 05/31/21 2 Tavia Wyatt MD [address] [place] [address] Dermatology 07/14/21 Johnny Murillo MD [address] [place] [address] Assigned Musculoskeletal Provider 08/30/21 03/17/22 Erica Farrell APRN THREAD INSPECTOR [address] [facility] [address] [place], [place] 9070[address] Nurse Practitioner Cardiovascular Disease 09/09/21 Teresita Bean [facility] [address] [place] [address] Pharmacist Pharmacist 09/24/21 09/29/21 Tavia Wyatt MD Assigned Surgical Provider 11/29/21 05/07/22 Diana Desir, [facility] [address] [facility] [address] Assigned MTM Pharmacist 01/02/22 Rich Barrett MD 516 [facility] 9A [place] [address] Physician Ophthalmology 01/21/22 Neil Kent MD 500 [place] [address] Dermatology 02/24/22 Roney Story DPM [address] [facility] [address] [place] [address] Assigned Musculoskeletal Provider 03/20/22 08/13/22 Erica Farrell APRN THREAD INSPECTOR 1700 [place] [address] Assigned Heart and Vascular Provider 04/03/22 04/16/22 [facility] [address] [place] [address] Assigned MTM Pharmacist 04/07/22 Jelena David [place] [address] [facility] [place] [address] Assigned Surgical Provider 05/08/22 10/08/22 Galo Burrell MD Assigned Heart and Vascular Provider 04/17/22 06/11/22 Livan Sharif MD [address] [place] [id number] Cardiovascular Disease 05/14/22 Livan Sharif MD [address] [place] [address] Assigned Heart and Vascular Provider 06/12/22 07/23/22 Catherine Cm MD [address] [place] [address] Cardiovascular Disease 07/21/22 Valery Veronica PA-C [address] [place] [address] 081025 Physician Time Analysis Clerk Dermatology 07/21/22 Catherine Cm MD [address] [place] 621295 Assigned Heart and Vascular Provider 07/24/22 11/05/22 Johnny Murillo MD [facility] 613614 Assigned Musculoskeletal Provider 08/14/22 10/08/22 Brea Quinn APRN THREAD INSPECTOR [address] [place] [address] [id number] Nurse Practitioner Dermatology 09/21/22 Brea Quinn APRN THREAD INSPECTOR [address] [place] [address] [place] 782942 Assigned Surgical Provider 10/09/22 [place] [address] RA[address] [place] [address] [place] 209107 Assigned Musculoskeletal Provider 10/09/22 Livan Sharif MD [address] [place] 989305 Assigned Heart and Vascular Provider 11/06/22 11/12/22 Catherine Cm MD [address] [place] 793025 Assigned Heart and Vascular Provider 11/13/22 05/27/23 Sydnie Martinez RN Personal Advocate & Liaison (PAL) Family Medicine 03/28/23 07/31/23 Alfonso Renteria MD [address] [facility] [address] 200 [place], [place] 0[address] Assigned Neuroscience Provider 04/02/23 Cheng Todd PA-C [address] [place] [address] [id number] Assigned PCP 04/30/23 07/15/23 Radha Lomeli, FIELD OBSERVER THREAD INSPECTOR [address] [place] 958615 Assigned Heart and Vascular Provider 05/28/23 Jelena David OD [address] [facility] [place] [address] Ophthalmology 06/15/23 Pao Joseph RN Personal Advocate & Liaison (PAL) Nurse 08/01/23 11/07/23 Esha Grimm PA-C [address] [place] [address] Assigned PCP 07/16/23 Valery Veronica PA-C 909 [place], [place] 799725 Physician Time Analysis Clerk Dermatology 09/19/23 Rey Tay MD 909 [place] [address] MD Gastroenterology 09/20/23 Rocky Zepeda DO [address] [place] [address] Physician Gastroenterology 09/20/23 Philip Dumont MD [address] [place] [address] 213895 Physician Ophthalmology 09/22/23 Meredith Carrera PAUcheC [address] [place] [address] Assigned Gastroenterology Provider 11/01/23 Neil Kent MD [address] [address] Dermatology 11/02/23 [place] [address] [place] [address] Neurological Surgery 12/26/23 documented as of this encounter
--- OUTSIDE RECORDS SUMMARY | 2024-01-07 18:16 | XMS_ITS | Encounter Summary ---
Author Organization [facility] Address [address] [place] [address] Care Team Providers Care Border Machine Operator Name Role Phone Lita Oseguera Unavailable Unavailable Marija Edgar APRN PHYSIATRIST Primary Care Provider U Marija Bella APRN PHYSIATRIST Unavailable Unavail able Mynor Broussard MD Unavailable [phone] Keisha Dotson MD Unavailable Galo Burrell MD Unavailable Unavailable Diana Desir [facility] Unavailable Rain Galaviz PA-C Unavailable Summer Lara MD Unavailable [phone] Tavia Wyatt MD Unavailable Unavailable Johnny Murillo MD Unavailable Erica Farrell APRN PHYSIATRIST Unavailable Teresita Bean [facility] Unavailable [phone] Tavia Wyatt MD Unavailable Unavailable Diana Desir [facility] Unavailable [phone] Rich Barrett MD Unavailable Neil Kent MD Unavailable Roney Story DPM Unavailable [phone] Erica Farrell APRN PHYSIATRIST Unavailable + Diana Desir [facility] Unavailable Jelena David OD Unavailable Galo Burrell MD Unavailable Unavailable Livan Sharif MD Unavailable Livan Sharif MD Unavailable IsCatherine hobbs MD Unavailable + Valery Veronica PA-C Unavailable [phone] Catherine Cm MD Unavailable + Johnny Murillo MD Unavailable [phone] Brea Quinn BOBBIN DUMPER PHYSIATRIST Unavailable [phone] Brea Quinn BOBBIN DUMPER PHYSIATRIST Unavailable [phone] Jose Francisco Johnson MD Unavailable Livan Sharif MD Unavailable + IsCatherine hobbs MD Unavailable + Sydnie Martinez RN Unavailable Unavailable Alfonso Renteria MD Unavailable Esha rGimm PA-C Primary Care Provider Cheng Todd PA-C Unavailable Radha Lomeli BOBBIN DUMPER PHYSIATRIST Unavailable [phone] Jelena David OD Unavailable [phone] Pao Joseph RN Unavailable Unavailable Esha Grimm-C Unavailable [phone] Valery Veronica PA-C Unavailable [phone] Rey Tay MD Unavailable Rocky Zepeda DO Unavailable Philip Dumont MD Unavailable [phone] Meredith Carrera PA-C Unavailable Neil Kent MD Unavailable Juan Pablo Emmanuel MD Unavailable Encounter Details Date Type Department Care Team (Late st Contact Info) Description 06/01/2021 MyC Medical Advice [address] [address] Diana Desir, [facility] 3033 [place] [address] Social History Tobacco Use Types Packs/Day Years [...] you attend chur ch or amish services? More than 4 times per year [...] Answer Date Recorded PHQ-2 Score 0 04/02/2021 [facility] - [...] health care facility (including now)? No 08/11/2020 Galena Depression Scale Answer Date Recorded Galena Depression Score 5 01/14/2021 Last EPDS Self [...] Diana Desir, PharmD Medication Therapy Management Provider, [facility] Pager: [phone] WARE CONTROLS ENGINEER documented in this encounter Plan of Treatment Upcoming Encounters Date Type Department Care Team (Late st Contact Info) Description 01/09/2024 10:15 AM CDT Office Visit [facility] Neurology Clinics - [address], [address] [place] [address] Genny Hyman PA-C [facility] Epilepsy Care 5775 [facility] Kaleb [address] [place] [address] [phone] [place] [address] [place] [address] 02/06/2024 10:00 AM CDT Office Visit [facility] [place] [address] [phone] Neil Kent MD 500 [place] [address] 03/06/2024 3:00 PM CDT Office Visit [facility] Heart [facility] [address] [place] [phone] Radha Lomeli APRN PHYSIATRIST [address] [place] [address] 03/07/2024 9:00 AM CDT Hospital Encounter [facility] [address] [place] [address] 5th [place] [phone] Rocky Zepeda DO 500 [place], [place] [address]265 03/07/2024 9:00 AM CDT - 03/07/2024 9:30 AM CDT Surgery [address] [phone] Rocky Zepeda DO 500 [place], [place] [address] Esophagoscopy, gastroscopy, duodenoscopy (EGD), combined Scheduled Procedures Name Priority Associated Diagnoses Date/Ti pr ESOPHAGOGASTRODUODENOSCOPY Eosinophilic esophagitis Esophageal dysphagia 03/07/2024 9:00 AM CDT documented as of this encounter Visit Diagnoses Not on filedocumented in this encounter Additional Health Concerns Infection Onset Date Last Indicated Resolved Time Rule Out COVID-19 07/13/2021 07/13/2021 07/14/2021 3:04 PM SOFTWARE CONTROLS ENGINEER Rule Out COVID-19 07/18/2021 07/18/2021 07/20/2021 1:56 PM SOFTWARE CONTROLS ENGINEER COVID-19 07/18/2021 07/18/2021 08/08/2021 11:3 9 PM SOFTWARE CONTROLS ENGINEER Rule Out COVID-19 12/18/2021 12/18/2021 12/19/2021 11:34 AM CDT Rule Out COVID-19 02/24/2022 02/24/2022 02/25/2022 1:08 PM CDT Rule Out COVID-19 04/26/2022 04/26/2022 04/26/2022 6:47 AM CDT Rule Out COVID-19 05/17/2022 05/17/2022 05/17/2022 10:20 PM SOFTWARE CONTROLS ENGINEER Rule Out COVID-19 06/09/2022 06/09/2022 06/09/2022 9:35 AM SOFTWARE CONTROLS ENGINEER COVID-19 06/09/2022 06/09/2022 06/30/2022 11:4 1 PM SOFTWARE CONTROLS ENGINEER Rule Out COVID-19 11/10/2022 11/10/2022 11/11/2022 12:17 PM CDT Rule Out COVID-19 03/07/2023 03/07/2023 03/07/2023 1:20 PM CDT Rule Out COVID-19 12/26/2023 12/26/2023 12/26/2023 9:50 AM CDT Assessment Noted Time PHQ-9 Depression Total Score: 2 04/02/20 21 10:19 AM CDT documented as of this encounter Care Teams Border Machine Operator Relationship Specialty Start Date End Date Marija Edgar APRN PHYSIATRIST PCP - General Nurse Practitioner 04/30/20 04/14/23 Esha Grimm PA-C [address] [place] [address] PCP - General Family Medicine 05/04/23 Lita Oseguera Personal Advocate & Liaison (PAL) 02/28/20 03/27/23 Marija Edgar APRN PHYSIATRIST Assigned PCP 06/08/20 04/29/23 Mynor Broussard MD 6363 [facility] 500 [place] [address] Assigned Surgical Provider 06/01/20 11/28/21 Keisha Dotson MD 909 [place] [address] Assigned Neuroscience Provider 06/04/20 04/01/23 Galo Burrell MD Assigned Heart and Vascular Provider 10/05/20 04/02/22 [facility] 3033 [place] [address] Pharmacist Pharmacist 04/17/21 Rain Galaviz PA-C 5 [facility] [address] [place] [address] Physician Saddle Stitching Machine Operator Dermatology 04/28/21 Summer Lara MD [address] [place] [address] Assigned OBGYN Provider 05/31/21 2 Tavia Wyatt MD [address] [place] [address] Dermatology 07/14/21 Johnny Murillo MD [facility] [address] [place] [address] Assigned Musculoskeletal Provider 08/30/21 03/17/22 Erica Farrell APRN PHYSIATRIST 6405 [facility] [address] [place] [address] Nurse Practitioner Cardiovascular Disease 09/09/21 Teresita Bean, [facility] [address] [facility] [place] [address] Pharmacist Pharmacist 09/24/21 09/29/21 Tavia Wyatt MD Assigned Surgical Provider 11/29/21 05/07/22 Diana Desir, [facility] [address] [place] [address] Assigned MTM Pharmacist 01/02/22 Rich Barrett MD [address] [address] Physician Ophthalmology 01/21/22 Neil Kent MD 500 [place], [place] 4[address]85 Dermatology 02/24/22 Roney Story DPM [address] [facility] [address] [place] [address] Assigned Musculoskeletal Provider 03/20/22 08/13/22 Erica Farrell APRN PHYSIATRIST 1700 [place] [address] Assigned Heart and Vascular Provider 04/03/22 04/16/22 Diana Desir, [facility] [address] [place] [address] Assigned MTM Pharmacist 04/07/22 Frankie Jelena GarciaSONJA [address] [facility] [place] [address] Assigned Surgical Provider 05/08/22 10/08/22 Galo Burrell MD Assigned Heart and Vascular Provider 04/17/22 06/11/22 Livan Sharif MD [address] [place] [address] Cardiovascular Disease 05/14/22 Livan Sharif MD [address] [place] [address] Assigned Heart and Vascular Provider 06/12/22 07/23/22 Catherine Cm MD [address] [place] [address] Cardiovascular Disease 07/21/22 Valery Veronica, PA-C 909 [place] [address] Physician Saddle Stitching Machine Operator Dermatology 07/21/22 Catherine Cm MD [address] [place] [address] Assigned Heart and Vascular Provider 07/24/22 11/05/22 Johnny Murillo MD [address] [place] [address] Assigned Musculoskeletal Provider 08/14/22 10/08/22 Brea Quinn APRN PHYSIATRIST 500 [place] [address] Nurse Practitioner Dermatology 09/21/22 Brea Quinn APRN PHYSIATRIST 6401 [facility] [place], [place] 768082 Assigned Surgical Provider 10/09/22 [place] [address] [facility] 300 [place], [place] 440327 Assigned Musculoskeletal Provider 10/09/22 Livan Sharif MD [address] [address] [place] 205065 Assigned Heart and Vascular Provider 11/06/22 11/12/22 Catherine Cm MD [address] [facility] [address] [place] [address]275 Assigned Heart and Vascular Provider 11/13/22 05/27/23 Sydnie Martinez, VJ Personal Advocate & Liaison (PAL) Family Medicine 03/28/23 07/31/23 Alfonso Renteria MD 5775 [facility] [address] [place], [place] [address]236 Assigned Neuroscience Provider 04/02/23 Cheng Todd PA-C [address] [place] [address] Assigned PCP 04/30/23 07/15/23 Radha Lomeli APRN PHYSIATRIST [address] [place] [address] Assigned Heart and Vascular Provider 05/28/23 Jelena David OD [address] [facility] [place] [address] MD Ophthalmology 06/15/23 Pao Joseph, VJ Personal Advocate & Liaison (PAL) Nurse 08/01/23 11/07/23 Esha Grimm PA-C [address] [place] [phone] Assigned PCP 07/16/23 Valery Veronica PA-C [address] [place] [address] 209155 Physician Saddle Stitching Machine Operator Dermatology 09/19/23 Rey Tay MD [address] [place] [address] 697485 Gastroenterology 09/20/23 Rocky Zepeda DO [address] [place] [address] 640505 Physician Gastroenterology 09/20/23 Philip Dumont MD [address] [place] [address] 131435 Physician Ophthalmology 09/22/23 Meredith Carrera PA-C [address] [place] [address] 523845 Assigned Gastroenterology Provider 11/01/23 Neil Kent MD [address] [place] [address] Dermatology 11/02/23 [place] [address] [place] [address] Neurological Surgery 12/26/23 documented as of this encounter
--- OUTSIDE RECORDS SUMMARY | 2024-01-07 18:16 | XMS_ITS | Encounter Summary ---
Author Organization [facility] Address [address] [place] [address] Care Team Providers Care Supervisor Dog License Officer Name Role Phone Lita Oseguera Unavailable Unavailable Marija Edgar APRN WARES SORTER Primary Care Provider U Marija Bella APRN WARES SORTER Unavailable Unavail able Mynor Broussard MD Unavailable [phone] Keisha Dotson MD Unavailable Galo Burrell MD Unavailable Unavailable Diana Desir [facility] Unavailable [phone] Rain Galaviz PA-C Unavailable Summer Lara MD Unavailable [phone] Tavia Wyatt MD Unavailable Unavailable Johnny Murillo MD Unavailable Erica Farrell APRN WARES SORTER Unavailable Teresita Bean [facility] Unavailable [phone] Tavia Wyatt MD Unavailable Unavailable Diana Desir [facility] Unavailable [phone] Rich Barrett MD Unavailable Neil Kent MD Unavailable Roney Story DPM Unavailable [phone] Erica Farrell APRN WARES SORTER Unavailable + Diana Desir [facility] Unavailable Jelena David OD Unavailable Galo Burrell MD Unavailable Unavailable Livan Sharif MD Unavailable Livan Sharif MD Unavailable IsCatherine hobbs MD Unavailable + Valery Veronica PA-C Unavailable [phone] Catherine Cm MD Unavailable + Johnny Murillo MD Unavailable [phone] Brea Quinn BELT BUCKLE MAKER WARES SORTER Unavailable [phone] Brea Quinn [employer]T BUCKLE MAKER WARES SORTER Unavailable [phone] Jose Francisco Johnson MD Unavailable Livan Sharif MD Unavailable + IsCatherine hobbs MD Unavailable + Sydnie Martinez RN Unavailable Unavailable Alfonso Renteria MD Unavailable Esha Grimm PA-C Primary Care Provider Cheng Todd PA-C Unavailable Radha Lomeli [employer]T BUCKLE MAKER WARES SORTER Unavailable [phone] Jelena David OD Unavailable [phone] Pao Joseph RN Unavailable Unavailable Esha Grimm-C Unavailable [phone] Valery Veronica PA-C Unavailable [phone] Rey Tay MD Unavailable Rocky Zepeda DO Unavailable Philip Dumont MD Unavailable [phone] Meredith Carrera PA-C Unavailable Neil Kent MD Unavailable Juan Pablo Emmanuel MD Unavailable [phone] Encounter Details Date Type Department Care Team [...] do you attend chur or alevism services? More than 4 times per year [...] Answer Date Recorded PHQ-2 Score 0 04/02/2021 [facility] of Occupat ional Health [...] a nursing home (including now)? No 08/11/2020 [place] Depression Scale Answer Date Recorded [place] Depression Score 5 01/14/2021 Last EPDS [...] COVID-19? No / Unsure 08/03/2021 2:24 PM ADVERTISING COLUMNIST documented as of this encounter Plan of Treatment Upcoming Encounters Date Type Department Care Team (Late st Contact Info) Description 01/09/2024 10:15 AM CDT Office Visit [facility] Neurology [facility] [address] [facility], [address] [place] [phone] Genny Hyman PAUcheC [facility] Epilepsy Care [address] [facility] 255 [place], [place] [address] [place] [address] [facility] [address] 300 [place], [place] [address] 02/06/2024 10:00 AM CDT Office Visit [facility] [address] [phone] Neil Kent MD 500 [place], [place] [address] 03/06/2024 3:00 PM CDT Office Visit [facility] Heart [facility] [address] [facility] [address] [place] [phone] Radha Lomeli APRN WARES SORTER [address] [facility] [address] [place], [place] [address] 03/07/2024 9:00 AM CDT Hospital Encounter [facility] [address] [place] [address] 5th [place] [phone] Rocky Zepeda DO 500 [place], [place] [address] 03/07/2024 9:00 AM CDT - 03/07/2024 9:30 AM CDT Surgery [facility] [address] [facility] 5th [place] [phone] Rocky Zepeda DO 500 [place], [place] [address] Esophagoscopy, gastroscopy, duodenoscopy (EGD), combined Scheduled Procedures Name Priority Associated Diagnoses Date/Ti co ESOPHAGOGASTRODUODENOSCOPY Eosinophilic esophagitis Esophageal dysphagia 03/07/2024 9:00 AM CDT documented as of this encounter Visit Diagnoses Not on filedocumented in this encounter Additional Health Concerns Infection Onset Date Last Indicated Resolved Time COVID-19 07/18/2021 07/18/2021 08/08/2021 11:3 9 PM ADVERTISING COLUMNIST Rule Out COVID-19 12/18/2021 12/18/2021 12/19/2021 11:34 AM CDT Rule Out COVID-19 02/24/2022 02/24/2022 02/25/2022 1:08 PM CDT Rule Out COVID-19 04/26/2022 04/26/2022 04/26/2022 6:47 AM CDT Rule Out COVID-19 05/17/2022 05/17/2022 05/17/2022 10:20 PM ADVERTISING COLUMNIST Rule Out COVID-19 06/09/2022 06/09/2022 06/09/2022 9:35 AM ADVERTISING COLUMNIST COVID-19 06/09/2022 06/09/2022 06/30/2022 11:4 1 PM ADVERTISING COLUMNIST Rule Out COVID-19 11/10/2022 11/10/2022 11/11/2022 12:17 PM CDT Rule Out COVID-19 03/07/2023 03/07/2023 03/07/2023 1:20 PM CDT Rule Out COVID-19 12/26/2023 12/26/2023 12/26/2023 9:50 AM CDT Assessment Noted Time PHQ-9 Depression Total Score: 2 04/02/20 10:19 AM CDT documented as of this encounter Care Teams Supervisor Dog License Officer Relationship Specialty Start Date End Date Marija Edgar APRN WARES SORTER PCP - General Nurse Practitioner 04/30/20 04/14/23 Esha Grimm PA-C [address] [place] [phone] PCP - General Family Medicine 05/04/23 Lita Oseguera Personal Advocate & Liaison (PAL) 02/28/20 03/27/23 Marija Edgar APRN WARES SORTER Assigned PCP 06/08/20 04/29/23 Mynor Broussard MD [address] 265[address] Assigned Surgical Provider 06/01/20 11/28/21 Keisha Dotson MD 909 [place], [place] 45[address] Assigned Neuroscience Provider 06/04/20 04/01/23 Galo Burrell MD Assigned Heart and Vascular Provider 10/05/20 04/02/22 Diana Desir, [facility] 3033 [place], [place] [address] Pharmacist Pharmacist 04/17/21 Rain Galaviz PA-C [address] [place] [address] [place] [address] Physician Auto Mechanic Dermatology 04/28/21 Summer Lara MD [address] [place] [address] Assigned OBGYN Provider 05/31/21 2 Tavia Wyatt MD [address] [place] [address] Dermatology 07/14/21 Johnny Murillo MD [address] [facility] [address] [place] [address] Assigned Musculoskeletal Provider 08/30/21 03/17/22 Erica Farrell APRN WARES SORTER [address] [facility] [address] [place] [address] Nurse Practitioner Cardiovascular Disease 09/09/21 Teresita Bean, [facility] [address] [address] Pharmacist Pharmacist 09/24/21 09/29/21 Tavia Wyatt MD Assigned Surgical Provider 11/29/21 05/07/22 [facility] [address] [place] [address] Assigned MTM Pharmacist 01/02/22 Rich Barrett MD [address] [facility] [address] [place], [place] [address] Physician Ophthalmology 01/21/22 Neil Kent MD 500 [place] [address] Dermatology 02/24/22 Roney Story DPM [address] [place] [address] Assigned Musculoskeletal Provider 03/20/22 08/13/22 Erica Farrell APRN WARES SORTER 1700 [place] [address] Assigned Heart and Vascular Provider 04/03/22 04/16/22 Diana Desir, [facility] 3033 [place] [address] Assigned MTM Pharmacist 04/07/22 Jelena David OD [address] [facility] [place] [address] Assigned Surgical Provider 05/08/22 10/08/22 Galo Burrell MD Assigned Heart and Vascular Provider 04/17/22 06/11/22 Livan Sharif MD [address] [place] [address] Cardiovascular Disease 05/14/22 Livan Sharif MD [address] [place] [address] Assigned Heart and Vascular Provider 06/12/22 07/23/22 Catherine Cm MD [address] [place] [address] [address] Cardiovascular Disease 07/21/22 Valery Veronica PA-C [address] [place] [address] Physician Auto Mechanic Dermatology 07/21/22 Catherine Cm MD [address] [address] Assigned Heart and Vascular Provider 07/24/22 11/05/22 Johnny Murillo MD [address] [place] [address] Assigned Musculoskeletal Provider 08/14/22 10/08/22 Brea Quinn APRN WARES SORTER [address] [place] [address] 019155 Nurse Practitioner Dermatology 09/21/22 Brea Quinn APRN WARES SORTER [address] [place] [address] Assigned Surgical Provider 10/09/22 [place] [address] [address] Assigned Musculoskeletal Provider 10/09/22 Livan Sharif MD [address] [facility] [place] [address] [address] Assigned Heart and Vascular Provider 11/06/22 11/12/22 Catherine Cm MD [address] [place] [address] Assigned Heart and Vascular Provider 11/13/22 05/27/23 Sydnie Martinez RN Personal Advocate & Liaison (PAL) Family Medicine 03/28/23 07/31/23 Alfonso Renteria MD [address] [facility] [address] 200 [place] [address] Assigned Neuroscience Provider 04/02/23 Cheng Todd PA-C [address] [place] [address] [id number] Assigned PCP 04/30/23 07/15/23 Radha Lomeli APRN WARES SORTER [address] [place] [address] Assigned Heart and Vascular Provider 05/28/23 Jelena David OD [address] [facility] [place] [address] Ophthalmology 06/15/23 Pao Joseph RN Personal Advocate & Liaison (PAL) Nurse 08/01/23 11/07/23 Esha Grimm PA-C [address] [place] [address] Assigned PCP 07/16/23 Valery Veronica PA-C [address] [place] [address] Physician Auto Mechanic Dermatology 09/19/23 Rey Tay MD 9 [place] [address] Gastroenterology 09/20/23 Rocky Zepeda DO [address] [place] [address] Physician Gastroenterology 09/20/23 Philip Dumont MD [address] [place] [address] Physician Ophthalmology 09/22/23 Meredith Carrera PAUcheC [address] [place] [address] Assigned Gastroenterology Provider 11/01/23 Neil Kent MD [address] [place] [address] Dermatology 11/02/23 [place] [address] [place] [address] Neurological Surgery 12/26/23 documented as of this encounter
--- OUTSIDE RECORDS SUMMARY | 2024-01-07 18:16 | XMS_ITS | Encounter Summary ---
Author Organization [facility] Address [address] [place] [address] Care Team Providers Care Concession Worker Name Role Phone Lita Oseguera Unavailable Unavailable Marija Edgar APRN HARDENING MACHINE OPERATOR Primary Care Provider U Marija Bella APRN HARDENING MACHINE OPERATOR Unavailable Unavail able Mynor Broussard MD Unavailable [phone] Keisha Dotson MD Unavailable [phone] Galo Burrell MD Unavailable Unavailable Diana Desir [facility] Unavailable [phone] Rain Galaviz PA-C Unavailable Summer Lara MD Unavailable [phone] Tavia Wyatt MD Unavailable Unavailable Johnny Murillo MD Unavailable Erica Farrell APRN HARDENING MACHINE OPERATOR Unavailable Teresita Bean [facility] Unavailable Tavia Wy[place] MD Unavailable Unavailable Diana Desir [facility] Unavailable [phone] Rich Barrett MD Unavailable Neil Kent MD Unavailable Roney Story DPM Unavailable [phone] Erica Farrell APRN HARDENING MACHINE OPERATOR Unavailable + Diana Desir [facility] Unavailable [phone] Jelena David OD Unavailable Galo Burrell MD Unavailable Unavailable Livan Sharif MD Unavailable Livan Shairf MD Unavailable IsCatherine hobbs MD Unavailable + Valery Veronica PA-C Unavailable [phone] Catherine Cm MD Unavailable + Johnny Murillo MD Unavailable [phone] Brea Quinn CHECK WRITING MACHINE OPERATOR HARDENING MACHINE OPERATOR Unavailable [phone] Brea Quinn CHECK WRITING MACHINE OPERATOR HARDENING MACHINE OPERATOR Unavailable [phone] Jose Francisco Johnson MD Unavailable Livan Sharif MD Unavailable + IsCatherine hobbs MD Unavailable + Sydnie Martinez RN Unavailable Unavailable Alfonso Renteria MD Unavailable Esha Grimm PA-C Primary Care Provider Cheng Todd PA-C Unavailable Radha Lomeli CHECK WRITING MACHINE OPERATOR HARDENING MACHINE OPERATOR Unavailable [phone] Jelena David OD Unavailable [phone] Pao Joseph RN Unavailable Unavailable Esha Grimm-C Unavailable [phone] Valery Veronica PA-C Unavailable [phone] Rey Tay MD Unavailable Rocky Zepeda DO Unavailable Philip Dumont MD Unavailable [phone] Meredith Carrera PA-C Unavailable Neil Kent MD Unavailable Juan Pablo Emmanuel MD Unavailable [phone] Encounter Details Date Type Department Care Team (Late st Contact Info) Description 08/04/[address] [address] [facility] Social History Tobacco Use Types [...] you attend chur ch or presybeterian services? More than 4 times per year [...] Answer Date Recorded PHQ-2 Score 0 04/02/2021 [facility] [place] of Occupat ional Health - Occupational Stress [...] in a custodial (including now)? No 08/11/2020 [place] Depression Scale Answer Date Recorded [place] Depression Score 5 01/14/2021 Last EPDS Self [...] COVID-19? No / Unsure 08/03/2021 2:24 PM SAFE AND VAULT INSTALLER documented as of this encounter Plan of Treatment Upcoming Encounters Date Type Department Care Team (Late st Contact Info) Description 01/09/2024 10:15 AM CDT Office Visit [facility] Neurology [address], [address] [place] [phone] Genny Hyman PA-C [facility] Epilepsy [facility] [address] [facility] 255 [place], [place] 6[address] [place] [address] [facility] 300 [place], [place] [address] 02/06/2024 10:00 AM CDT Office Visit [facility] [address] [phone] Neil Kent MD 500 [place] [address] 03/06/2024 3:00 PM CDT Office Visit [facility] Heart [facility] [address] [facility] [address] [place] [phone] Radha Lomeli E, CHECK WRITING MACHINE OPERATOR HARDENING MACHINE OPERATOR [address] [place] [address] 03/07/2024 9:00 AM CDT Hospital Encounter [facility] [place] [address] 5th [place] [phone] Rocky Zepeda DO 500 [place], [place] [address] 03/07/2024 9:00 AM CDT - 03/07/2024 9:30 AM CDT Surgery [facility] OR [address] [phone] Rocky Zepeda DO 500 [place], [place] [address] Esophagoscopy, gastroscopy, duodenoscopy (EGD), combined Scheduled Procedures Name Priority Associated Diagnoses Date/Ti ut ESOPHAGOGASTRODUODENOSCOPY Eosinophilic esophagitis Esophageal dysphagia 03/07/2024 9:00 AM CDT documented as of this encounter Visit Diagnoses Not on filedocumented in this encounter Additional Health Concerns Infection Onset Date Last Indicated Resolved Time COVID-19 07/18/2021 07/18/2021 08/08/2021 11:3 9 PM SAFE AND VAULT INSTALLER Rule Out COVID-19 12/18/2021 12/18/2021 12/19/2021 11:34 AM CDT Rule Out COVID-19 02/24/2022 02/24/2022 02/25/2022 1:08 PM CDT Rule Out COVID-19 04/26/2022 04/26/2022 04/26/2022 6:47 AM CDT Rule Out COVID-19 05/17/2022 05/17/2022 05/17/2022 10:20 PM SAFE AND VAULT INSTALLER Rule Out COVID-19 06/09/2022 06/09/2022 06/09/2022 9:35 AM SAFE AND VAULT INSTALLER COVID-19 06/09/2022 06/09/202206/30/2022 11:4 1 PM SAFE AND VAULT INSTALLER Rule Out COVID-19 11/10/2022 11/10/2022 11/11/2022 12:17 PM CDT Rule Out COVID-19 03/07/2023 03/07/2023 03/07/2023 1:20 PM CDT Rule Out COVID-19 12/26/2023 12/26/2023 12/26/2023 9:50 AM CDT Assessment Noted Time PHQ-9 Depression Total Score: 2 04/02/20 10:19 AM CDT documented as of this encounter Care Teams Concession Worker Relationship Specialty Start Date End Date Marija Edgar APRN HARDENING MACHINE OPERATOR PCP - General Nurse Practitioner 04/30/20 04/14/23 Esha Grimm, PAUcheC [address] [place] [phone] PCP - General Family Medicine 05/04/23 Lita Oseguera Personal Advocate & Liaison (PAL) 02/28/20 03/27/23 Marija Edgar APRN HARDENING MACHINE OPERATOR Assigned PCP 06/08/20 04/29/23 Mynor Broussard MD 6363 [facility] 500 [place] [address] Assigned Surgical Provider 06/01/20 11/28/21 Keisha Dotson MD 909 [place] [address] Assigned Neuroscience Provider 06/04/20 04/01/23 Galo Burrell MD Assigned Heart and Vascular Provider 10/05/20 04/02/22 Diana Desir, [facility] 3033 [place], [place] [address] Pharmacist Pharmacist 04/17/21 Rain Galaviz PA-C [address] [place] [address] [place] [address] Physician Home Health Nurse Licensed Practical Dermatology 04/28/21 Summer Lara MD [address] [place], [place] [address] Assigned OBGYN Provider 05/31/21 2 Tavia Wyatt MD [address] [place] [address] Dermatology 07/14/21 Johnny Murillo MD [address] [place], [place] [address] Assigned Musculoskeletal Provider 08/30/21 03/17/22 Erica Farrell APRN HARDENING MACHINE OPERATOR [address] [facility] [address] [place], [place] [address] Nurse Practitioner Cardiovascular Disease 09/09/21 Teresita Bean, [facility] [address] [place] [address] Pharmacist Pharmacist 09/24/21 09/29/21 Tavia Wyatt MD Assigned Surgical Provider 11/29/21 05/07/22 Diana Desir, [facility] [address] [place] [address] Assigned MTM Pharmacist 01/02/22 Rich Barrett MD 516 [facility] 9A [place] [address] Physician Ophthalmology 01/21/22 Neil Kent MD 500 [place] [address] Dermatology 02/24/22 [place]oney [place] [address] [facility] [address] [place] [address] Assigned Musculoskeletal Provider 03/20/22 08/13/22 Erica Farrell APRN HARDENING MACHINE OPERATOR 1700 [place] [address] Assigned Heart and Vascular Provider 04/03/22 04/16/22 [facility] 3033 [place] [address] Assigned MTM Pharmacist 04/07/22 Jelena David OD [address] [facility] [place] [address] Assigned Surgical Provider 05/08/22 10/08/22 Galo Burrell MD Assigned Heart and Vascular Provider 04/17/22 06/11/22 Livan Sharif MD [address] [place] [address] Cardiovascular Disease 05/14/22 Livan Sharif MD [address] [place] [address] Assigned Heart and Vascular Provider 06/12/22 07/23/22 Catherine Cm MD [address] [facility]00 [place] [address] Cardiovascular Disease 07/21/22 Valery Veronica, [facility] 909 [place] [address] Physician Home Health Nurse Licensed Practical Dermatology 07/21/22 Catherine Cm MD [address] [facility] [place] [address] Assigned Heart and Vascular Provider 07/24/22 11/05/22 Johnny Murillo MD [address] [place] [address] 807534 Assigned Musculoskeletal Provider 08/14/22 10/08/22 Brea Quinn APRN HARDENING MACHINE OPERATOR [address] [place] [address] 873015 Nurse Practitioner Dermatology 09/21/22 Brea Quinn APRN HARDENING MACHINE OPERATOR [address] [place] [address] [facility] [place] [address] Assigned Surgical Provider 10/09/22 [place] [address] [place] [facility] [place] [address] Assigned Musculoskeletal Provider 10/09/22 Livan Sharif MD [address] [facility] [place] 995715 Assigned Heart and Vascular Provider 11/06/22 11/12/22 Catherine Cm MD [address] [place] [address] Assigned Heart and Vascular Provider 11/13/22 05/27/23 Sydnie Martinez RN Personal Advocate & Liaison (PAL) Family Medicine 03/28/23 07/31/23 Alfonso Renteria MD [address] [facility] [address] 200 [place], [place] 0[address]356 Assigned Neuroscience Provider 04/02/23 Cheng Todd PA-C [address] [place] [address] [id number] Assigned PCP 04/30/23 07/15/23 Radha Lomeli APRN HARDENING MACHINE OPERATOR [address] [place] [address] Assigned Heart and Vascular Provider 05/28/23 Jelena David OD 3[address] [facility] [place] [address] Ophthalmology 06/15/23 Pao Joseph, VJ Personal Advocate & Liaison (PAL) Nurse 08/01/23 11/07/23 Esha Grimm PA-C [address] [place] [phone] Assigned PCP 07/16/23 Valery Veronica PA-C 909 [place], [place] 8[address] Physician Home Health Nurse Licensed Practical Dermatology 09/19/23 Rey Tay MD [address] [place] [address] 016925 MD Gastroenterology 09/20/23 Rocky Zepeda DO [address] [place] [address] Physician Gastroenterology 09/20/23 Philip Dumont MD [address] [place] [address] 898005 Physician Ophthalmology 09/22/23 Meredith Carrera PA-C [address] [place] [address] Assigned Gastroenterology Provider 11/01/23 Neil Kent MD [address] [address] Dermatology 11/02/23 [place] [address] [place] [address] Neurological Surgery 12/26/23 documented as of this encounter
--- OUTSIDE RECORDS SUMMARY | 2024-01-07 18:16 | XMS_ITS | Encounter Summary ---
Author Organization [facility] Address [address] [place] [address] Care Team Providers Care Net Developer Software Engineer C Name Role Phone Lita Oseguera Unavailable Unavailable Marija Edgar APRN CORE ASSEMBLY SUPERVISOR Primary Care Provider U Marija Bella APRN CORE ASSEMBLY SUPERVISOR Unavailable Unavail able Mynor Broussard MD Unavailable [phone] Keisha Dotson MD Unavailable Galo Burrell MD Unavailable Unavailable Diana Desir [facility] Unavailable [phone] Rain Galaviz PA-C Unavailable Summer Lara MD Unavailable [phone] Tavia Wyatt MD Unavailable Unavailable Johnny Murillo MD Unavailable Erica Farrell APRN CORE ASSEMBLY SUPERVISOR Unavailable Teresita Bean [facility] Unavailable [phone] Tavia Wyatt MD Unavailable Unavailable Diana Desir [facility] Unavailable [phone] Rich Barrett MD Unavailable Neil Kent MD Unavailable Ronye Story DPM Unavailable [phone] Erica Farrell APRN CORE ASSEMBLY SUPERVISOR Unavailable + Diana Desir [facility] Unavailable Jelena David OD Unavailable [phone] Galo Burrell MD Unavailable Unavailable Livan Sharif MD Unavailable Livan Sharif MD Unavailable IsCatherine hobbs MD Unavailable + Valery Veronica PA-C Unavailable [phone] Catherine Cm MD Unavailable + Johnny Murillo MD Unavailable [phone] Brea Quinn PRODUCTION SHIFT SUPERVISOR CORE ASSEMBLY SUPERVISOR Unavailable [phone] Brea Quinn PRODUCTION SHIFT SUPERVISOR CORE ASSEMBLY SUPERVISOR Unavailable [phone] Jose Francisco Johnson MD Unavailable Livan Sharif MD Unavailable + IsCatherine hobbs MD Unavailable + Sydnie Martinez RN Unavailable Unavailable Alfonso Renteria MD Unavailable Esha Grimm PA-C Primary Care Provider Cheng Todd PA-C Unavailable Radha Lomeli PRODUCTION SHIFT SUPERVISOR CORE ASSEMBLY SUPERVISOR Unavailable [phone] Jelena David OD Unavailable [phone] Pao Joseph RN Unavailable Unavailable Esha Grimm-C Unavailable [phone] Valery Veronica PA-C Unavailable [phone] Rey Tay MD Unavailable Rocky Zepeda DO Unavailable Philip Dumotn MD Unavailable [phone] Meredith Carrera PA-C Unavailable Neil Kent MD Unavailable Juan Pablo Emmanuel MD Unavailable [phone] Encounter Details Date Type Department Care Team [...] How often do you attend chur or bahai services? More than 4 times per year [...] Answer Date Recorded PHQ-2 Score 0 04/02/2021 [facility] [...] in a detention (including now)? No 08/11/2020 [place] Depression Scale Answer Date Recorded [place] Depression Score 5 01/14/2021 Last EPDS Self [...] COVID-19? No / Unsure 09/02/2021 12:26 PM RAG SORTER AND CUTTER documented as of this encounter Plan of Treatment Upcoming Encounters Date Type Department Care Team (Late st Contact Info) Description 01/09/2024 10:15 AM CDT Office Visit [facility] [address] [facility], [address] [place] [phone] Genny Hyman PAUcheC [facility] Epilepsy Care [address] [facility] 255 [place], [place] 9[address] [place] [address] [facility] 300 [place], [place] [address] 02/06/2024 10:00 AM CDT Office Visit [facility] [address] [phone] Neil Kent MD 500 [place], [place] 8[address]25 03/06/2024 3:00 PM CDT Office Visit [facility] Heart [facility] [address] [facility] [address] [place] [phone] Radha Lomeli APRN CORE ASSEMBLY SUPERVISOR [address] [facility] [address] [place], [place] [address] 03/07/2024 9:00 AM CDT Hospital Encounter [facility] [address] [place] [address] 5th [place] [phone] Rocky Zepeda DO 500 [place], [place] [address] 03/07/2024 9:00 AM CDT - 03/07/2024 9:30 AM CDT Surgery [facility] 9[address] [facility] 5th [place] [phone] Rocky Zepeda DO 500 [place], [place] 376485 Esophagoscopy, gastroscopy, duodenoscopy (EGD), combined Scheduled Procedures [...] Out COVID-19 05/17/2022 05/17/2022 05/17/2022 10:20 PM RAG SORTER AND CUTTER Rule Out COVID-19 06/09/2022 06/09/2022 06/09/2022 9:35 AM RAG SORTER AND CUTTER COVID-19 06/09/2022 06/09/2022 06/30/2022 11:4 1 PM RAG SORTER AND CUTTER Rule Out COVID-19 11/10/2022 11/10/2022 11/11/2022 12:17 PM CDT Rule Out COVID-19 03/07/2023 03/07/2023 03/07/2023 1:20 PM CDT Rule Out COVID-19 12/26/2023 12/26/2023 12/26/2023 9:50 AM CDT Assessment Noted Time PHQ-9 Depression Total Score: 2 04/02/20 10:19 AM CDT documented as of this encounter Care Teams Net Developer Software Engineer C Relationship Specialty Start Date End Date Marija Edgar APRN CORE ASSEMBLY SUPERVISOR PCP - General Nurse Practitioner 04/30/20 04/14/23 Esha Grimm PA-C [address] [place] [address] PCP - General Family Medicine 05/04/23 Lita Oseguera Personal Advocate & Liaison (PAL) 02/28/20 03/27/23 Marija Edgar APRN CORE ASSEMBLY SUPERVISOR Assigned PCP 06/08/20 04/29/23 Mynor Broussard MD [address] [place] [address] Assigned Surgical Provider 06/01/20 11/28/21 Keisha Dotson MD 909 [place] [address] Assigned Neuroscience Provider 06/04/20 04/01/23 Galo Burrell MD Assigned Heart and Vascular Provider 10/05/20 04/02/22 Diana Desir, [facility] 3033 [place], [place] [phone] Pharmacist Pharmacist 04/17/21 Rain Galaviz PA-C [address] [facility] [address] [place] [address] Physician Hand Pattern Marker Dermatology 04/28/21 Summer Lara MD [address] [place], [place] [address] Assigned OBGYN Provider 05/31/21 2 Tavia Wyatt MD [address] [place] [address] Dermatology 07/14/21 Johnny Murillo MD [address] [place] [address] Assigned Musculoskeletal Provider 08/30/21 03/17/22 Erica Farrell APRN CORE ASSEMBLY SUPERVISOR [address] [facility] [address] [place] [address] Nurse Practitioner Cardiovascular Disease 09/09/21 Teresita Bean, [facility] [address] [place], [place] [phone] Pharmacist Pharmacist 09/24/21 09/29/21 Tavia Wyatt MD Assigned Surgical Provider 11/29/21 05/07/22 [facility] [address] [place] [address] Assigned MTM Pharmacist 01/02/22 Rich Barrett MD [address] 320675 Physician Ophthalmology 01/21/22 Neil Kent MD [address] [place] [address] Dermatology 02/24/22 Roney Story DPM [address] [facility] [address] [place] [address] Assigned Musculoskeletal Provider 03/20/22 08/13/22 Erica Farrell APRN CORE ASSEMBLY SUPERVISOR 1700 [place] [address] Assigned Heart and Vascular Provider 04/03/22 04/16/22 [facility] 3033 [place] [address] Assigned MTM Pharmacist 04/07/22 Jelena David OD [address] [place] [address] Assigned Surgical Provider 05/08/22 10/08/22 Galo Burrell MD Assigned Heart and Vascular Provider 04/17/22 06/11/22 Livan Sharif MD [address] [place] [address] Cardiovascular Disease 05/14/22 Livan Sharif MD [address] [place] [address] Assigned Heart and Vascular Provider 06/12/22 07/23/22 Catherine Cm MD [address] [place] [address] Cardiovascular Disease 07/21/22 Valery Veronica PA-C 909 [place] [address] Physician Hand Pattern Marker Dermatology 07/21/22 Catherine Cm MD [address] [place] [address] Assigned Heart and Vascular Provider 07/24/22 11/05/22 Johnny Murillo MD [address] [place] [address] 820914 Assigned Musculoskeletal Provider 08/14/22 10/08/22 Brea Quinn APRN CORE ASSEMBLY SUPERVISOR [address] [place] [address] 020225 Nurse Practitioner Dermatology 09/21/22 Brea Quinn APRN CORE ASSEMBLY SUPERVISOR [address] [place] [address] 806542 Assigned Surgical Provider 10/09/22 [place] [address] 187357 Assigned Musculoskeletal Provider 10/09/22 Livan Sharif MD [address] [place] [address] [place] 778805 Assigned Heart and Vascular Provider 11/06/22 11/12/22 Catherine Cm MD [address] [place] [address] [place] 398625 Assigned Heart and Vascular Provider 11/13/22 05/27/23 Sydnie Martinez, VJ Personal Advocate & Liaison (PAL) Family Medicine 03/28/23 07/31/23 Alfonso Renteria MD 5775 [facility] [address] 200 [place] [address] Assigned Neuroscience Provider 04/02/23 Cheng Todd PA-C [address] [place] [address] [phone] Assigned PCP 04/30/23 07/15/23 Radha Lomeli APRN CORE ASSEMBLY SUPERVISOR [address] [facility] [address] [place], [place] 5325[address] Assigned Heart and Vascular Provider 05/28/23 Jelena David OD [address] [place] [address] Ophthalmology 06/15/23 Pao Joseph, VJ Personal Advocate & Liaison (PAL) Nurse 08/01/23 11/07/23 Esha Grimm PA-C [address] [place] [address] Assigned PCP 07/16/23 Valery Veronica PA-C [address] [place] [address] 200005 Physician Hand Pattern Marker Dermatology 09/19/23 Rey Tay MD [address] [place] [address] 608375 Gastroenterology 09/20/23 Rocky Zepeda DO [address] [place] [address] 074575 Physician Gastroenterology 09/20/23 Philip Dumont MD [address] [place] [address] 246935 Physician Ophthalmology 09/22/23 Meredith Carrera PA-C [address] [place] [address] 142475 Assigned Gastroenterology Provider 11/01/23 Neil Kent MD [address] 472320 Dermatology 11/02/23 [place] [address] [facility] [address] [place], [place] 5[address] Neurological Surgery 12/26/23 documented as of this encounter
--- OUTSIDE RECORDS SUMMARY | 2024-01-07 18:16 | XMS_ITS | Encounter Summary ---
Author Organization [facility] Address [address] [place] [address] Care Team Providers Care Sexual Health Physician Name Role Phone Lita Oseguera Unavailable Unavailable Marija Edgar APRN LICENSED NUCLEAR OPERATOR Primary Care Provider U Marija Bella APRN LICENSED NUCLEAR OPERATOR Unavailable Unavail able Mynor Broussard MD Unavailable [phone] Keisha Dotson MD Unavailable Galo Burrell MD Unavailable Unavailable Diana Desir [facility] Unavailable Rain Galaviz PA-C Unavailable Summer Lara MD Unavailable [phone] Tavia Wyatt MD Unavailable Unavailable Johnny Murillo MD Unavailable [phone] Erica Farrell APRN LICENSED NUCLEAR OPERATOR Unavailable Teresita Bean [facility] Unavailable Tavia Wyatt MD Unavailable Unavailable Diana Desir [facility] Unavailable [phone] Rich Barrett MD Unavailable Neil Kent MD Unavailable Roney Story DPM Unavailable [phone] Erica Farrell APRN LICENSED NUCLEAR OPERATOR Unavailable + Diana Desir [facility] Unavailable Jelena David OD Unavailable Galo Burrell MD Unavailable Unavailable Livan Sharif MD Unavailable Livan Sharif MD Unavailable IsCatherine hobbs MD Unavailable + Valery Veroncia PA-C Unavailable [phone] Catherine Cm MD Unavailable + Johnny Murillo MD Unavailable [phone] Brea Quinn MUSHROOM FARMER LICENSED NUCLEAR OPERATOR Unavailable [phone] Brea Quinn MUSHROOM FARMER LICENSED NUCLEAR OPERATOR Unavailable [phone] Jose Francisco Johnson MD Unavailable Livan Sharif MD Unavailable + IsCatherine hobbs MD Unavailable + Sydnie Martinez RN Unavailable Unavailable Alfonso Renteria MD Unavailable Esha Grimm PA-C Primary Care Provider Cheng Todd PA-C Unavailable Radha Lomeli MUSHROOM FARMER LICENSED NUCLEAR OPERATOR Unavailable [phone] Jelena David OD Unavailable [phone] Pao Joseph RN Unavailable Unavailable Esha Grimm-C Unavailable [phone] Valery Veronica PA-C Unavailable [phone] Rey Tay MD Unavailable Rocky Zepeda DO Unavailable Philip Dumont MD Unavailable [phone] Meredith Carrera PA-C Unavailable Neil Kent MD Unavailable Juan Pablo Emmanuel MD Unavailable Encounter Details Date Type Department Care Team (Late st Contact Info) Description 06/25/2021 MyC Medical Advice [address] [address] Diana Desir, [facility] 3033 [place] [address] Psoriasis (Primary Dx) Social History Tobacco Use [...] do you attend chur or adventism services? More than 4 times per year [...] Answer Date Recorded PHQ-2 Score 0 04/02/2021 [facility] - [...] a nursing home (including now)? No 08/11/2020 [place] Depression Scale Answer Date Recorded [place] Depression Score 5 01/14/2021 Last EPDS Self [...] COVID-19? No / Unsure 06/26/2021 8:28 AM SURVEY COMPILER documented as of this encounter Miscellaneous Notes * Telephone Encounter - Diana Desir [facility] - 06/26/2021 9:53 AM CST Discussed with PCP and verbal approval for betamethasone cream. Diana Desir, PharmD Medication Therapy Management Provider, [facility] Pager: [phone] EY COMPILER documented in this encounter Plan of Treatment Upcoming Encounters Date Type Department Care Team (Late st Contact Info) Description 01/09/2024 10:15 AM CDT Office Visit [facility] Neurology Clinics - [address], [address] [place] [address] Genny Hyman PA-C [facility] Epilepsy Care 5775 [facility] 255 [place], [place] [phone] [place] [address] [place] [address] 02/06/2024 10:00 AM CDT Office Visit [facility] [address] [phone] Neil Kent MD 500 [place] [address] 03/06/2024 3:00 PM CDT Office Visit [facility] Heart [facility] [address] [facility] [address] [place] [phone] Radha Lomeli, MUSHROOM FARMER LICENSED NUCLEAR OPERATOR [address] [place], [place] [address] 03/07/2024 9:00 AM CDT Hospital Encounter [facility] [address] [phone] Rocky Zepeda DO 500 [place] [address] 03/07/2024 9:00 AM CDT - 03/07/2024 9:30 AM CDT Surgery [facility] [address] [place] [phone] Rocky Zepeda DO [address] [place], [place] 8[address] Esophagoscopy, gastroscopy, duodenoscopy (EGD), combined Scheduled Procedures Name Priority Associated Diagnoses Date/Ti ar ESOPHAGOGASTRODUODENOSCOPY Eosinophilic esophagitis Esophageal dysphagia 03/07/2024 9:00 AM CDT documented as of this encounter Visit Diagnoses Diagnosis Psoriasis- Primary Other psoriasis Eosinophilic esophagitis Esophageal dysphagia Dysphagia, pharyngoesophageal phase documented in this encounter Additional Health Concerns Infection Onset Date Last Indicated Resolved Time Rule Out COVID-19 07/13/2021 07/13/2021 07/14/2021 3:04 PM SURVEY COMPILER Rule Out COVID-19 07/18/2021 07/18/2021 07/20/2021 1:56 PM SURVEY COMPILER COVID-19 07/18/2021 07/18/2021 08/08/2021 11:3 9 PM SURVEY COMPILER Rule Out COVID-19 12/18/2021 12/18/2021 12/19/2021 11:34 AM CDT Rule Out COVID-19 02/24/2022 02/24/2022 02/25/2022 1:08 PM CDT Rule Out COVID-19 04/26/2022 04/26/2022 04/26/2022 6:47 AM CDT Rule Out COVID-19 05/17/2022 05/17/2022 05/17/2022 10:20 PM SURVEY COMPILER Rule Out COVID-19 06/09/2022 06/09/2022 06/09/2022 9:35 AM SURVEY COMPILER COVID-19 06/09/2022 06/09/2022 06/30/2022 11:4 1 PM SURVEY COMPILER Rule Out COVID-19 11/10/2022 11/10/2022 11/11/2022 12:17 PM CDT Rule Out COVID-19 03/07/2023 03/07/2023 03/07/2023 1:20 PM CDT Rule Out COVID-19 12/26/2023 12/26/2023 12/26/2023 9:50 AM CDT Assessment Noted Time PHQ-9 Depression Total Score: 2 04/02/20 21 10:19 AM CDT documented as of this encounter Care Teams Sexual Health Physician Relationship Specialty Start Date End Date Marija Edgar APRN LICENSED NUCLEAR OPERATOR PCP - General Nurse Practitioner 04/30/20 04/14/23 Esha Grimm PA-C [address] [place] [address] PCP - General Family Medicine 05/04/23 Lita Oseguera Personal Advocate & Liaison (PAL) 02/28/20 03/27/23 Marija Edgar APRN LICENSED NUCLEAR OPERATOR Assigned PCP 06/08/20 04/29/23 Mynor Broussard MD [address] [facility] [address] 500 [place] [address] Assigned Surgical Provider 06/01/20 11/28/21 Keisha Dotson MD 909 [place] [address] Assigned Neuroscience Provider 06/04/20 04/01/23 Galo Burrell MD Assigned Heart and Vascular Provider 10/05/20 04/02/22 [facility] [address] [place] [address] Pharmacist Pharmacist 04/17/21 Rain Galaviz PA-C [address] [place] [address] [address] [place] [address] Physician Trench Pipe Layer Dermatology 04/28/21 Summer Lara MD [address] [place] [address] Assigned OBGYN Provider 05/31/21 2 Tavia Wyatt MD [address] [place] [address] Dermatology 07/14/21 Johnny Murillo MD [address] [address] Assigned Musculoskeletal Provider 08/30/21 03/17/22 Erica Farrell APRN LICENSED NUCLEAR OPERATOR 6[address] [facility] [address] [place] [address] Nurse Practitioner Cardiovascular Disease 09/09/21 Teresita Bean [facility] [address] [place] [address] Pharmacist Pharmacist 09/24/21 09/29/21 Tavia Wyatt MD Assigned Surgical Provider 11/29/21 05/07/22 Diana Desir, [facility] 3033 [place] [address] Assigned MTM Pharmacist 01/02/22 Rich Barrett MD [address] 0[address] Physician Ophthalmology 01/21/22 Neil Kent MD 500 [place], [place] [phone] Dermatology 02/24/22 [place] [address] [facility] [place] [address] [place] [address] Assigned Musculoskeletal Provider 03/20/22 08/13/22 Erica Farrell APRN LICENSED NUCLEAR OPERATOR 1700 [place] [address] Assigned Heart and Vascular Provider 04/03/22 04/16/22 Diana Desir, [facility] [address] [place] [address] Assigned MTM Pharmacist 04/07/22 Frankie Jelena GarciaSONJA [address] [facility] [place] [address] Assigned Surgical Provider 05/08/22 10/08/22 Galo Burrell MD Assigned Heart and Vascular Provider 04/17/22 06/11/22 Livan Sharif MD [address] [place] [address] Cardiovascular Disease 05/14/22 Livan Sharif MD [address] [place] [address] Assigned Heart and Vascular Provider 06/12/22 07/23/22 Catherine Cm MD [address] [place] [address] Cardiovascular Disease 07/21/22 Valery Veronica, PA-C 909 [place] [address] Physician Trench Pipe Layer Dermatology 07/21/22 Catherine Cm MD [address] [place] [address] Assigned Heart and Vascular Provider 07/24/22 11/05/22 Johnny Murillo MD [address] 625294 Assigned Musculoskeletal Provider 08/14/22 10/08/22 Brea Quinn APRN LICENSED NUCLEAR OPERATOR 500 [place] [address] Nurse Practitioner Dermatology 09/21/22 Brea Quinn APRN LICENSED NUCLEAR OPERATOR [address] [facility] [place] [address] Assigned Surgical Provider 10/09/22 [place] [address] [facility] 300 [place] [address] Assigned Musculoskeletal Provider 10/09/22 Livan Sharif MD [address] [place] [address] Assigned Heart and Vascular Provider 11/06/22 11/12/22 Catherine Cm MD [address] [place] [address] Assigned Heart and Vascular Provider 11/13/22 05/27/23 Sydnie Martinez, RN Personal Advocate & Liaison (PAL) Family Medicine 03/28/23 07/31/23 Alfonso Renteria MD 5775 [facility] 200 [place] [address] Assigned Neuroscience Provider 04/02/23 Cheng Todd PA-C [address] [place] [address] Assigned PCP 04/30/23 07/15/23 Radha Lomeli APRN LICENSED NUCLEAR OPERATOR [address] [place] [address] Assigned Heart and Vascular Provider 05/28/23 Jelena David OD [address] [facility] [place] [place] [address] MD Ophthalmology 06/15/23 Pao Joseph, VJ Personal Advocate & Liaison (PAL) Nurse 08/01/23 11/07/23 Esha Grimm PA-C [address] [place] [phone] Assigned PCP 07/16/23 Valery Veronica PA-C [address] [place] [address] 966065 Physician Trench Pipe Layer Dermatology 09/19/23 Rey Tay MD [address] [place] [address] 531975 Gastroenterology 09/20/23 Rocky Zepeda DO [address] [place] [address] 758175 Physician Gastroenterology 09/20/23 Philip Dumont MD [address] [place] [address] 184675 Physician Ophthalmology 09/22/23 Meredith Carrera PA-C [address] [place] [address] 611735 Assigned Gastroenterology Provider 11/01/23 Neil Kent MD [address] [place] [address] 999000 Dermatology 11/02/23 [place] [address] [address] [facility] [place] [address] Neurological Surgery 12/26/23 documented as of this encounter
--- OUTSIDE RECORDS SUMMARY | 2024-01-07 18:16 | XMS_ITS | Encounter Summary ---
Author Organization [facility] Address [address] [place] [address] Care Team Providers Care Thermodynamics Engineer Name Role Phone Lita Oseguera Unavailable Unavailable Marija Edgar APRN PRINCIPAL CONSULTING ENGINEER Primary Care Provider U Marija Bella APRN PRINCIPAL CONSULTING ENGINEER Unavailable Unavail able Mynor Broussard MD Unavailable [phone] Keisha Dotson MD Unavailable Galo Burrell MD Unavailable Unavailable Diana Desir [facility] Unavailable [phone] Rain Galaviz PA-C Unavailable Summer Lara MD Unavailable [phone] Tavia Wyatt MD Unavailable Unavailable Johnny Murillo MD Unavailable Erica Farrell APRN PRINCIPAL CONSULTING ENGINEER Unavailable Teresita Bean [facility] Unavailable Tavia Wyatt MD Unavailable Unavailable Diana Desir [facility] Unavailable [phone] Rich Barrett MD Unavailable Neil Kent MD Unavailable Roney Story DPM Unavailable [phone] Erica Farrell APRN PRINCIPAL CONSULTING ENGINEER Unavailable + Diana Desir [facility] Unavailable Jelena David OD Unavailable Galo Burrell MD Unavailable Unavailable Livan Sharif MD Unavailable Livan Sharif MD Unavailable IsCatherine hobbs MD Unavailable + Valery Veronica PA-C Unavailable [phone] Catherine Cm MD Unavailable + Johnny Murillo MD Unavailable [phone] Brea Quinn BILLBOARD ERECTOR HELPER PRINCIPAL CONSULTING ENGINEER Unavailable [phone] Brea Quinn BILLBOARD ERECTOR HELPER PRINCIPAL CONSULTING ENGINEER Unavailable [phone] Jose Francisco Johnson MD Unavailable Livan Sharif MD Unavailable + IsCatherine hobbs MD Unavailable + Sydnie Martinez RN Unavailable Unavailable Alfonso Renteria MD Unavailable Esha Grimm PA-C Primary Care Provider Cheng Todd PA-C Unavailable Radha Lomeli BILLBOARD ERECTOR HELPER PRINCIPAL CONSULTING ENGINEER Unavailable [phone] Jelena David OD Unavailable [phone] Pao Joseph RN Unavailable Unavailable Esha Grimm-C Unavailable [phone] Valery Veronica PA-C Unavailable [phone] Rey Tay MD Unavailable Rocky Zepeda DO Unavailable Philip Dumont MD Unavailable [phone] Meredith Carrera PA-C Unavailable Neil Kent MD Unavailable Juan Pablo Emmanuel MD Unavailable Encounter Details Date Type Department Care Team (Late st Contact Info) Description 06/03/2021 MyC Medical Advice [address] [address] Diana Desir, [facility] [address] [place] [address] Social History Tobacco Use Types Packs/Day Years [...] often do you attend chur ch or advent services? More than 4 times [...] Answer Date Recorded PHQ-2 Score 0 04/02/2021 [facility] [...] slept in a assisted (including now)? No 08/11/2020 [place] Depression Scale Answer Date Recorded [place] Depression Score 5 01/14/2021 Last EPDS [...] Description 01/09/2024 10:15 AM CDT Office Visit [facility] Neurology [address], [address] [place] [address] Hyman PA-C [facility] Epilepsy Care 57[address] [facility] 255 [place], [place] 2[address] [place] [address] [address] [facility] 300 [place], [place] [address] 02/06/2024 10:00 AM CDT Office Visit [facility] [address] [address] Neil Kent MD 500 [place], [place] [address] 03/06/2024 3:00 PM CDT Office Visit [facility] Heart [facility] [address] [place] [address] Radha Lomeli, BILLBOARD ERECTOR HELPER PRINCIPAL CONSULTING ENGINEER [address] [place] [address] 03/07/2024 9:00 AM CDT Hospital Encounter [address] [place] [phone] Rocky Zepeda DO 500 [place], [place] [address]395 03/07/2024 9:00 AM CDT - 03/07/2024 9:30 AM CDT Surgery [address] [place] [phone] Rocky Zepeda DO 500 [place] [address] Esophagoscopy, gastroscopy, duodenoscopy (EGD), combined Scheduled Procedures Name Priority Associated Diagnoses Date/Ti ca ESOPHAGOGASTRODUODENOSCOPY Eosinophilic esophagitis Esophageal dysphagia 03/07/2024 9:00 AM CDT documented as of this encounter Visit Diagnoses Not on filedocumented in this encounter Additional Health Concerns Infection Onset Date Last Indicated Resolved Time Rule Out COVID-19 07/13/2021 07/13/2021 07/14/2021 3:04 PM BABY FORMULA WORKER Rule Out COVID-19 07/18/2021 07/18/2021 07/20/2021 1:56 PM BABY FORMULA WORKER COVID-19 07/18/2021 07/18/2021 08/08/2021 11:3 9 PM BABY FORMULA WORKER Rule Out COVID-19 12/18/2021 12/18/2021 12/19/2021 11:34 AM CDT Rule Out COVID-19 02/24/2022 02/24/2022 02/25/2022 1:08 PM CDT Rule Out COVID-19 04/26/2022 04/26/2022 04/26/2022 6:47 AM CDT Rule Out COVID-19 05/17/2022 05/17/2022 05/17/2022 10:20 PM BABY FORMULA WORKER Rule Out COVID-19 06/09/2022 06/09/2022 06/09/2022 9:35 AM BABY FORMULA WORKER COVID-19 06/09/2022 06/09/2022 06/30/2022 11:4 1 PM BABY FORMULA WORKER Rule Out COVID-19 11/10/2022 11/10/2022 11/11/2022 12:17 PM CDT Rule Out COVID-19 03/07/2023 03/07/2023 03/07/2023 1:20 PM CDT Rule Out COVID-19 12/26/2023 12/26/2023 12/26/2023 9:50 AM CDT Assessment Noted Time PHQ-9 Depression Total Score: 2 04/02/20 10:19 AM CDT documented as of this encounter Care Teams Thermodynamics Engineer Relationship Specialty Start Date End Date Marija Edgar APRN PRINCIPAL CONSULTING ENGINEER PCP - General Nurse Practitioner 04/30/20 04/14/23 Esha Grimm PA-C [address] [place] [phone] PCP - General Family Medicine 05/04/23 Lita Oseguera Personal Advocate & Liaison (PAL) 02/28/20 03/27/23 Marija Edgar APRN PRINCIPAL CONSULTING ENGINEER Assigned PCP 06/08/20 04/29/23 Mynor Broussard MD [address] [address] Assigned Surgical Provider 06/01/20 11/28/21 Keisha Dotson MD 909 [place] [address] Assigned Neuroscience Provider 06/04/20 04/01/23 Galo Burrell MD Assigned Heart and Vascular Provider 10/05/20 04/02/22 [facility] [address] [place] [address] Pharmacist Pharmacist 04/17/21 Rain Galaviz PA-C [address] [place] [address] [place] [address] Physician Director Of Sales Support Dermatology 04/28/21 Summer Lara MD [address] [place] [address] Assigned OBGYN Provider 05/31/21 2 Tavia Wyatt MD [address] [place] [address] Dermatology 07/14/21 Johnny Murillo MD [address] [facility] [address] [place] [address] Assigned Musculoskeletal Provider 08/30/21 03/17/22 Erica Farrell APRN PRINCIPAL CONSULTING ENGINEER [address] [facility] [address] [place] [address] Nurse Practitioner Cardiovascular Disease 09/09/21 Teresita Bean, [facility] [address] [place] [address] Pharmacist Pharmacist 09/24/21 09/29/21 Tavia Wyatt MD Assigned Surgical Provider 11/29/21 05/07/22 Diana Desir, [facility] [address] [place] [address] Assigned MTM Pharmacist 01/02/22 Rich Barrett MD [address] 9774[address] Physician Ophthalmology 01/21/22 Neil Kent MD 500 [place], [place] [address]535 Dermatology 02/24/22 Roney Story DPM [address] [facility] [address] [place], [place] 16[address] Assigned Musculoskeletal Provider 03/20/22 08/13/22 Erica Farrell APRN PRINCIPAL CONSULTING ENGINEER 1700 [place] [address] Assigned Heart and Vascular Provider 04/03/22 04/16/22 Diana Desir, [facility] [address] [place] [address] Assigned MTM Pharmacist 04/07/22 Jelena David OD [address] [facility] [place] [address] Assigned Surgical Provider 05/08/22 10/08/22 Galo Burrell MD Assigned Heart and Vascular Provider 04/17/22 06/11/22 Livan Sharif MD 6405 [facility] , [facility] [address] [place] [address] Cardiovascular Disease 05/14/22 Livan Sharif MD [address], [facility] [address] [place] [address] Assigned Heart and Vascular Provider 06/12/22 07/23/22 Catherine Cm MD [address] [facility] [address] [place] [address] Cardiovascular Disease 07/21/22 Valery Veronica, PAUcheC [address] [place] [address] Physician Director Of Sales Support Dermatology 07/21/22 Catherine Cm MD [address] [facility]00 [place] [address] Assigned Heart and Vascular Provider 07/24/22 11/05/22 [place] [address] [place] [address] Assigned Musculoskeletal Provider 08/14/22 10/08/22 Brea Quinn APRN PRINCIPAL CONSULTING ENGINEER [address] [place] [address] Nurse Practitioner Dermatology 09/21/22 Brea Quinn APRN PRINCIPAL CONSULTING ENGINEER [address] [place] [address] [place] 682272 Assigned Surgical Provider 10/09/22 [place] [address] [address] [place] [address] Assigned Musculoskeletal Provider 10/09/22 Livan Sharif MD [address], [facility] [address] [place] [address] Assigned Heart and Vascular Provider 11/06/22 11/12/22 Catherine Cm MD [address] [facility] [address] [place] [address] Assigned Heart and Vascular Provider 11/13/22 05/27/23 Sydnie Martinez RN Personal Advocate & Liaison (PAL) Family Medicine 03/28/23 07/31/23 Alfonso Renteria MD 5775 [facility] 200 [place] [address] Assigned Neuroscience Provider 04/02/23 Cheng Todd PA-C [address] [place] [address] Assigned PCP 04/30/23 07/15/23 Radha Lomeli, BILLBOARD ERECTOR HELPER PRINCIPAL CONSULTING ENGINEER [address] [place] [address] Assigned Heart and Vascular Provider 05/28/23 Jelena David OD [facility]5 [facility] [place] [address] Ophthalmology 06/15/23 Pao Joseph, VJ Personal Advocate & Liaison (PAL) Nurse 08/01/23 11/07/23 Esha Grimm PAUcheC [address] [place] [address] Assigned PCP 07/16/23 Valery Vernoica PA-C [address] [place] [address] Physician Director Of Sales Support Dermatology 09/19/23 Rey Tay MD [address] [place] [address] MD Gastroenterology 09/20/23 Rocky Zepeda DO [address] [place] [address] Physician Gastroenterology 09/20/23 Philip Dumont MD [address] [place] [address] Physician Ophthalmology 09/22/23 Meredith Carrera PA-C [address] [place] [address] Assigned Gastroenterology Provider 11/01/23 Neil Kent MD [address] [address] Dermatology 11/02/23 [place] [address] [place] [address] Neurological Surgery 12/26/23 documented as of this encounter
--- OUTSIDE RECORDS SUMMARY | 2024-01-07 18:16 | XMS_ITS | Encounter Summary ---
Author Organization [facility] Address [address] [place] [address] Care Team Providers Care Mortgage Or Loan Underwriter Name Role Phone Lita Oseguera Unavailable Unavailable Marija Edgar APRN EDUCATIONAL TECHNOLOGY SPECIALIST Primary Care Provider Chanelle Gutierrez APRN CN Unavailab le Marija Edgar APRN EDUCATIONAL TECHNOLOGY SPECIALIST Unavailable Unavail able Mynor Broussard MD Unavailable [phone] Keisha Dotson MD Unavailable [phone] Galo Burrell MD Unavailable Unavailable Diana Desir [facility] Unavailable Rain Galaviz PA-C Unavailable Summer Lara MD Unavailable [phone] Summer Lara MD Unavailable [phone] Summer Lara MD Unavailable [phone] Tavia Wyatt MD Unavailable Unavailable Johnny Murillo MD Unavailable Erica Farrell APRN EDUCATIONAL TECHNOLOGY SPECIALIST Unavailable Teresita Bean [facility] Unavailable [phone] Tavia Wyatt MD Unavailable Unavailable Diana Desir [facility] Unavailable Rich Barrett MD Unavailable [phone] Neil Kent MD Unavailable Roney Story DPM Unavailable Erica Farrell ORACLE IDENTITY MANAGEMENT CONSULTANT EDUCATIONAL TECHNOLOGY SPECIALIST Unavailable ThangDiana [facility] Unavailable Jelena David OD Unavailable Galo Burrell MD Unavailable Unavailable HoLivan MD Unavailable Livan Sharif MD Unavailable Catherine Cm MD Unavailable + Valery Veronica PA-C Unavailable [phone] Catherine Cm MD Unavailable + Johnny Murillo MD Unavailable [phone] Brea Quinn ORACLE IDENTITY MANAGEMENT CONSULTANT EDUCATIONAL TECHNOLOGY SPECIALIST Unavailable [phone] Brea Quinn ORACLE IDENTITY MANAGEMENT CONSULTANT EDUCATIONAL TECHNOLOGY SPECIALIST Unavailable [phone] Jose Francisco Johnson MD Unavailable Livan Sharif MD Unavailable IsCatherine hobbs MD Unavailable + Sydnie Martinez RN Unavailable Unavailable Alfonso Renteria MD Unavailable Esha Grimm-C Primary Care Provider Cheng Todd PA-C Unavailable Radha Lomeli ORACLE IDENTITY MANAGEMENT CONSULTANT EDUCATIONAL TECHNOLOGY SPECIALIST Unavailable Jelena David OD Unavailable Pao Joseph RN Unavailable Unavailable Esha Grimm-C Unavailable [phone] Valery Veronica PA-C Unavailable [phone] Rey Tay MD Unavailable Rocky Zepeda DO Unavailable Philip Dumont MD Unavailable [phone] Meredith Carrera PA-C Unavailable [phone] Neil Kent MD Unavailable Juan Pablo Emmanuel MD Unavailable [phone] Encounter Details Date Type Department Care Team (Late st Contact Info) Description 05/05/2021 MyC Medical Advice [address] [address] Lauren Gan, RN Social History [...] week 08/07/2020 How often do you attend [facility] or sikhism services? More than 4 times [...] Answer Date Recorded PHQ-2 Score 0 04/02/2021 [facility] - [facility]ational Stress Questionnaire Answer Date [...] in a correction (including now)? No 08/11/2020 [place] Depression Scale Answer Date Recorded [place] Depression Score 5 01/14/2021 Last EPDS Self [...] Office Visit [facility] Neurology [address], [address] [place] [phone] Genny Hyman, PAUcheC [facility] Epilepsy Care 5775 [facility] 255 [place], [place] [address] [place] [address] [facility] 300 [place], [place] [address] 02/06/2024 10:00 AM CDT Office Visit [facility] [address] [address] Neil Kent MD 500 [place], [place] [phone] 03/06/2024 3:00 PM CDT Office Visit [facility] Heart [facility] [address] [facility] [address] [place] [address] Armani Radha Sia, ORACLE IDENTITY MANAGEMENT CONSULTANT EDUCATIONAL TECHNOLOGY SPECIALIST [address] [place] [address] 03/07/2024 9:00 AM CDT Hospital Encounter [facility] [address] [place] [address] 5th [place] [phone] Rocky Zepeda DO 500 [place] [address] 03/07/2024 9:00 AM CDT - 03/07/2024 9:30 AM CDT Surgery [address]th [place] [address] Rocky Zepeda DO 500 [place] [address] Esophagoscopy, gastroscopy, duodenoscopy (EGD), combined Scheduled Procedures Name Priority Associated Diagnoses Date/Ti hi ESOPHAGOGASTRODUODENOSCOPY Eosinophilic esophagitis Esophageal dysphagia 03/07/2024 9:00 AM CDT documented as of this encounter Visit Diagnoses Not on filedocumented in this encounter Additional Health Concerns Infection Onset Date Last Indicated Resolved Time Rule Out COVID-19 05/11/2021 05/11/2021 05/13/2021 10:18 AM CDT Rule Out COVID-19 07/13/2021 07/13/2021 07/14/2021 3:04 PM TRAINING DEVELOPER Rule Out COVID-19 07/18/2021 07/18/2021 07/20/2021 1:56 PM TRAINING DEVELOPER COVID-19 07/18/2021 07/18/2021 08/08/2021 11:3 9 PM TRAINING DEVELOPER Rule Out COVID-19 12/18/2021 12/18/2021 12/19/2021 11:34 AM CDT Rule Out COVID-19 02/24/2022 02/24/2022 02/25/2022 1:08 PM CDT Rule Out COVID-19 04/26/2022 04/26/2022 04/26/2022 6:47 AM CDT Rule Out COVID-19 05/17/2022 05/17/2022 05/17/2022 10:20 PM TRAINING DEVELOPER Rule Out COVID-19 06/09/2022 06/09/2022 06/09/2022 9:35 AM TRAINING DEVELOPER COVID-19 06/09/2022 06/09/2022 06/30/2022 11:4 1 PM TRAINING DEVELOPER Rule Out COVID-19 11/10/2022 11/10/2022 11/11/2022 12:17 PM CDT Rule Out COVID-19 03/07/2023 03/07/2023 03/07/2023 1:20 PM CDT Rule Out COVID-19 12/26/2023 12/26/2023 12/26/2023 9:50 AM CDT Assessment Noted Time PHQ-9 Depression Total Score: 2 04/02/20 10:19 AM CDT documented as of this encounter Care Teams Mortgage Or Loan Underwriter Relationship Specialty Start Date End Date Marija Edgar APRN EDUCATIONAL TECHNOLOGY SPECIALIST PCP - General Nurse Practitioner 04/30/20 04/14/23 Esha Grimm PA-C [address] [place] [phone] PCP - General Family Medicine 05/04/23 Lita Oseguera Personal Advocate & Liaison (PAL) 02/28/20 03/27/23 Chanelle Mccann APRN CNM [address] [address] Assigned OBGYN Provider 05/02/2005/09 Marija Edgar APRN EDUCATIONAL TECHNOLOGY SPECIALIST Assigned PCP 06/08/20 04/29/23 Mynor Broussard MD 6363 [facility] 500 [place] [address] Assigned Surgical Provider 06/01/20 11/28/21 Keisha Dotson MD 909 [place] [address] Assigned Neuroscience Provider 06/04/20 04/01/23 Galo Burrell MD Assigned Heart and Vascular Provider 10/05/20 04/02/22 Diana Desir, [facility] [address] [place] [address] Pharmacist Pharmacist 04/17/21 Rain Galaviz PA-C [address] [facility] [address] [place] [address] Physician Acrobatic Rigger Dermatology 04/28/21 Summer Lara MD [address] [place] [address] Assigned OBGYN Provider 05/10/2105/23 Summer Lara MD [address] [place] [address] 283204 Assigned OBGYN Provider 05/31/21 2 Summer Lara MD [address] [place] [address] Assigned OBGYN Provider 05/24/2105/30 Tavia Wyatt MD [address] [place] [address] Dermatology 07/14/21 Johnny Murillo MD [address] [place] [address] Assigned Musculoskeletal Provider 08/30/21 03/17/22 Erica Farrell APRN EDUCATIONAL TECHNOLOGY SPECIALIST [address] [place] [address] Nurse Practitioner Cardiovascular Disease 09/09/21 Teresita Bean, [facility] [address] [place], [place] [phone] Pharmacist Pharmacist 09/24/21 09/29/21 Tavia Wyatt MD Assigned Surgical Provider 11/29/21 05/07/22 [facility] 3033 [place] [address] Assigned MTM Pharmacist 01/02/22 Rich Barrett MD 516 [facility] 9[address] [place], [place] [address] Physician Ophthalmology 01/21/22 Neil Kent MD 500 [place], [place] 538425 Dermatology 02/24/22 Roney Story DPM [address] [facility] [address] [place], [place] [address] Assigned Musculoskeletal Provider 03/20/22 08/13/22 Erica Farrell APRN EDUCATIONAL TECHNOLOGY SPECIALIST 1700 [place] [address] Assigned Heart and Vascular Provider 04/03/22 04/16/22 Diana Desir, [facility] 30[address] [place], [place] [address]266 Assigned MTM Pharmacist 04/07/22 Jelena David OD [address] [facility] [place] [address] Assigned Surgical Provider 05/08/22 10/08/22 Galo Burrell MD Assigned Heart and Vascular Provider 04/17/22 06/11/22 Livan Sharif MD [address] [place] [address] Cardiovascular Disease 05/14/22 Livan Sharif MD [address] [place] [address] Assigned Heart and Vascular Provider 06/12/22 07/23/22 Catherine Cm MD [address] [place] [address] Cardiovascular Disease 07/21/22 Valery Veronica, PAUcheC 909 [place] [address] Physician Acrobatic Rigger Dermatology 07/21/22 Catherine Cm MD [address] [place] [address] Assigned Heart and Vascular Provider 07/24/22 11/05/22 Johnny Murillo MD [address] [facility] [address] [place], [place] [address] Assigned Musculoskeletal Provider 08/14/22 10/08/22 Brea Quinn APRN EDUCATIONAL TECHNOLOGY SPECIALIST 500 [facility] [place], [place] [address] Nurse Practitioner Dermatology 09/21/22 Brea Quinn APRN EDUCATIONAL TECHNOLOGY SPECIALIST 6401 [facility] [place] [address] Assigned Surgical Provider 10/09/22 [place] [address] [facility] 300 [place], [place] [address] Assigned Musculoskeletal Provider 10/09/22 Livan Sharif MD [address] [place] [address] Assigned Heart and Vascular Provider 11/06/22 11/12/22 Catherine Cm MD [address] [place] [address] Assigned Heart and Vascular Provider 11/13/22 05/27/23 Sydnie Martinez RN Personal Advocate & Liaison (PAL) Family Medicine 03/28/23 07/31/23 Alfonso Renteria MD [address] [place] [address] Assigned Neuroscience Provider 04/02/23 Cheng Todd PA-C [address] [place] [address] Assigned PCP 04/30/23 07/15/23 Radha Lomeli APRN EDUCATIONAL TECHNOLOGY SPECIALIST 6405 [facility] [address] [place] [address] Assigned Heart and Vascular Provider 05/28/23 Jelena David OD [address] [facility] [place] [address] Ophthalmology 06/15/23 Pao Joseph, VJ Personal Advocate & Liaison (PAL) Nurse 08/01/23 11/07/23 Esha Grimm PA-C [address] [place] [address] Assigned PCP 07/16/23 Valery Veronica PA-C [address] [place] [address] 5724[address] Physician Acrobatic Rigger Dermatology 09/19/23 Rey Tay MD [address] [place] [address] Gastroenterology 09/20/23 Rocky Zepeda DO [address] [place] [address] 813085 Physician Gastroenterology 09/20/23 Philip Dumont MD 516 [place] [address] Physician Ophthalmology 09/22/23 Meredith Carrera PA-C 9 [place] [address] Assigned Gastroenterology Provider 11/01/23 Neil Kent MD [address] [address] Dermatology 11/02/23 [place] [address] [place] [address] Neurological Surgery 12/26/23 documented as of this encounter
--- OUTSIDE RECORDS SUMMARY | 2024-01-07 18:16 | XMS_ITS | Encounter Summary ---
Author Organization [facility] Address [address] [place] [address] Care Team Providers Care Crutcher Helper Name Role Phone Lita Oseguera Unavailable Unavailable Marija Edgar APRN CREDIT CONSULTANT Primary Care Provider U Marija Bella APRN CREDIT CONSULTANT Unavailable Unavail able Mynor Broussard MD Unavailable [phone] Keisha Dotson MD Unavailable [phone] Galo Burrell MD Unavailable Unavailable Diana Desir [facility] Unavailable [phone] Rain Galaviz PA-C Unavailable Summer Lara MD Unavailable [phone] Tavia Wyatt MD Unavailable Unavailable Johnny Murillo MD Unavailable Erica Farrell APRN CREDIT CONSULTANT Unavailable Treesita Bean [facility] Unavailable Tavia Wyatt MD Unavailable Unavailable Diana Desir [facility] Unavailable [phone] Rich Barrett MD Unavailable Neil Kent MD Unavailable Roney Story DPM Unavailable [phone] Erica Farrell APRN CREDIT CONSULTANT Unavailable + Diana Desir [facility] Unavailable Jelena David OD Unavailable [phone] Galo Burrell MD Unavailable Unavailable Livan Sharif MD Unavailable Livan Sharif MD Unavailable IsCatherine hobbs MD Unavailable + Valery Veronica PA-C Unavailable [phone] Catherine Cm MD Unavailable + Johnny Murillo MD Unavailable [phone] Brea Quinn BRAZER ELECTRONIC CREDIT CONSULTANT Unavailable [phone] Brea Quinn BRAZER ELECTRONIC CREDIT CONSULTANT Unavailable [phone] Jose Francisco Johnson MD Unavailable Livan Sharif MD Unavailable + IsCatherine hobbs MD Unavailable + Sydnie Martinez RN Unavailable Unavailable Alfonso Renteria MD Unavailable Esha Grimm PA-C Primary Care Provider Cheng Tdod PA-C Unavailable Radha Lomeli BRAZER ELECTRONIC CREDIT CONSULTANT Unavailable [phone] Jelena David OD Unavailable [phone] Pao Joseph RN Unavailable Unavailable Esha Grimm-C Unavailable [phone] Valery Veronica PA-C Unavailable [phone] Rey Tay MD Unavailable Rocky Zepeda DO Unavailable Philip Dumont MD Unavailable [phone] Meredith Carrera PA-C Unavailable Neil Kent MD Unavailable Juan Pablo Emmanuel MD Unavailable [phone] Encounter Details Date Type Department Care Team (Late st Contact Info) Description 07/14/2021 MyC Medical Advice [address] [phone] Lauren Gan, RN Social History Tobacco Use [...] you attend chur ch or scientologist services? More than 4 times per year [...] Answer Date Recorded PHQ-2 Score 0 04/02/2021 [facility] - [...] a nursing home (including now)? No 08/11/2020 [place] Depression Scale Answer Date Recorded [place] [...] Coronavirus / COVID-19? Yes 07/15/2021 12:15 PM LOAN DOCUMENTATION SPECIALIST documented as of this encounter Plan of Treatment Upcoming Encounters Date Type Department Care Team (Late st Contact Info) Description 01/09/2024 10:15 AM CDT Office Visit [facility] Neurology [address], [address] [place] [phone] [facility] Epilepsy [facility] 5775 [facility] 255 [place], [place] 7[address] [place] [address] [facility] 300 [place], [place] 8836[address] 02/06/2024 10:00 AM CDT Office Visit [facility] [address] [phone] Neil Kent MD 500 [place], [place] 9[address]175 03/06/2024 3:00 PM CDT Office Visit [facility] Heart [facility] [address] [facility] [address] [place] [phone] Radha Lomeli E, BRAZER ELECTRONIC CREDIT CONSULTANT [address] [place] [address] 03/07/2024 9:00 AM CDT Hospital Encounter [facility] OR [address] 5th [place] [phone] Rocky Zepeda DO 500 [place], [place] [address] 03/07/2024 9:00 AM CDT - 03/07/2024 9:30 AM CDT Surgery [facility] OR [address] [phone] Rocky Zepeda DO 500 [place], [place] 426195 Esophagoscopy, gastroscopy, duodenoscopy (EGD), combined Scheduled Procedures Name Priority Associated Diagnoses Date/Ti ar ESOPHAGOGASTRODUODENOSCOPY Eosinophilic esophagitis Esophageal dysphagia 03/07/2024 9:00 AM CDT documented as of this encounter Visit Diagnoses Not on filedocumented in this encounter Additional Health Concerns Infection Onset Date Last Indicated Resolved Time Rule Out COVID-19 07/13/2021 07/13/2021 07/14/2021 3:04 PM LOAN DOCUMENTATION SPECIALIST Rule Out COVID-19 07/18/2021 07/18/2021 07/20/2021 1:56 PM LOAN DOCUMENTATION SPECIALIST COVID-19 07/18/2021 07/18/2021 08/08/2021 11:3 9 PM LOAN DOCUMENTATION SPECIALIST Rule Out COVID-19 12/18/2021 12/18/2021 12/19/2021 11:34 AM CDT Rule Out COVID-19 02/24/2022 02/24/2022 02/25/2022 1:08 PM CDT Rule Out COVID-19 04/26/2022 04/26/2022 04/26/2022 6:47 AM CDT Rule Out COVID-19 05/17/2022 05/17/2022 05/17/2022 10:20 PM LOAN DOCUMENTATION SPECIALIST Rule Out COVID-19 06/09/2022 06/09/2022 06/09/2022 9:35 AM LOAN DOCUMENTATION SPECIALIST COVID-19 06/09/2022 06/09/2022 06/30/2022 11:4 1 PM LOAN DOCUMENTATION SPECIALIST Rule Out COVID-19 11/10/2022 11/10/2022 11/11/2022 12:17 PM CDT Rule Out COVID-19 03/07/2023 03/07/2023 03/07/2023 1:20 PM CDT Rule Out COVID-19 12/26/2023 12/26/2023 12/26/2023 9:50 AM CDT Assessment Noted Time PHQ-9 Depression Total Score: 2 04/02/20 10:19 AM CDT documented as of this encounter Care Teams Crutcher Helper Relationship Specialty Start Date End Date Marija Edgar APRN CREDIT CONSULTANT PCP - General Nurse Practitioner 04/30/20 04/14/23 Esha Grimm, PAUcheC [address] [place] [phone] PCP - General Family Medicine 05/04/23 Lita Oseguera Personal Advocate & Liaison (PAL) 02/28/20 03/27/23 Marija Edgar APRN CREDIT CONSULTANT Assigned PCP 06/08/20 04/29/23 Mynor Broussard MD [address] [address] Assigned Surgical Provider 06/01/20 11/28/21 Keisha Dotson MD 909 [place] [address] Assigned Neuroscience Provider 06/04/20 04/01/23 Galo Burrell MD Assigned Heart and Vascular Provider 10/05/20 04/02/22 Diana Desir, [facility] [address] [place] [address] Pharmacist Pharmacist 04/17/21 Rain Galaviz PA-C [address] [place] [address] [place] [address] Physician Hogshead Cooper Dermatology 04/28/21 Summer Lara MD [address] [place], [place] [address] Assigned OBGYN Provider 05/31/21 2 Tavia Wyatt MD [address] [place] [address] Dermatology 07/14/21 Johnny Murillo MD [address] [place] [address] Assigned Musculoskeletal Provider 08/30/21 03/17/22 Erica Farrell APRN CREDIT CONSULTANT [address] [facility] [facility] [address] [place] [address] Nurse Practitioner Cardiovascular Disease 09/09/21 Teresita Bean [facility] [address] [place] [address] Pharmacist Pharmacist 09/24/21 09/29/21 Tavia Wyatt MD Assigned Surgical Provider 11/29/21 05/07/22 Diana Desir, [facility] [address] [place] [address] Assigned MTM Pharmacist 01/02/22 Rich Barrett MD [address] 970965 Physician Ophthalmology 01/21/22 Neil Kent MD 500 [place], [place] 3299[address] Dermatology 02/24/22 [place] [address] [facility] [address] [place] [address] Assigned Musculoskeletal Provider 03/20/22 08/13/22 Erica Farrell APRN CREDIT CONSULTANT 1700 [place] [address] Assigned Heart and Vascular Provider 04/03/22 04/16/22 Diana Desir [facility] 3033 [place] [address] Assigned MTM Pharmacist 04/07/22 Jelena David OD [address] [place] [address] Assigned Surgical Provider 05/08/22 10/08/22 Galo Burrell MD Assigned Heart and Vascular Provider 04/17/22 06/11/22 Livan Sharif MD [address] [facility] [address] [place] [address] Cardiovascular Disease 05/14/22 Livan Sharif MD [address], [facility] [address] [place] [address] Assigned Heart and Vascular Provider 06/12/22 07/23/22 Catherine Cm MD [address] [facility]00 [place] [address]395 Cardiovascular Disease 07/21/22 Valery Veronica, PAUcheC [address] [place] [address] 917775 Physician Hogshead Cooper Dermatology 07/21/22 Catherine Cm MD [address] [facility] [place] [address] Assigned Heart and Vascular Provider 07/24/22 11/05/22 Johnny Murillo MD [facility] [phone] Assigned Musculoskeletal Provider 08/14/22 10/08/22 Brea Quinn APRN CREDIT CONSULTANT [address] [place] [address] 401445 Nurse Practitioner Dermatology 09/21/22 Brea Quinn APRN CREDIT CONSULTANT [address] [place] [address] [place] 072492 Assigned Surgical Provider 10/09/22 [place] [address] 327167 Assigned Musculoskeletal Provider 10/09/22 Livan Sharif MD [address], [facility] [address] [place] 6[address] Assigned Heart and Vascular Provider 11/06/22 11/12/22 Catherine Cm MD [address] [place], [place] [address]315 Assigned Heart and Vascular Provider 11/13/22 05/27/23 Sydnie Martinez, RN Personal Advocate & Liaison (PAL) Family Medicine 03/28/23 07/31/23 Alfonso Renteria MD 5775 [facility] 200 [place], [place] 968536 Assigned Neuroscience Provider 04/02/23 Cheng Todd PA-C [address] [place] [address] [id number] Assigned PCP 04/30/23 07/15/23 Radha Lomeli, ARLENE CREDIT CONSULTANT [address] [place] [address] Assigned Heart and Vascular Provider 05/28/23 Jelena David OD [address] [place] [address] Ophthalmology 06/15/23 Pao Joseph, VJ Personal Advocate & Liaison (PAL) Nurse 08/01/23 11/07/23 Esha Grimm PA-C [address] [place] [address] Assigned PCP 07/16/23 Valery Veronica PAUcheC [address] [place] [address] 126235 Physician Hogshead Cooper Dermatology 09/19/23 Rey Tay MD [address] [place] [address] MD Gastroenterology 09/20/23 Rocky Zepeda DO [address] [place] [address] 412365 Physician Gastroenterology 09/20/23 Philip Dumont MD [address] [place] [address] 338005 Physician Ophthalmology 09/22/23 Meredith Carrera PA-C [address] [place] [address] Assigned Gastroenterology Provider 11/01/23 Neil Kent MD [address] [address] Dermatology 11/02/23 [place] [address] [facility] [address] Neurological Surgery 12/26/23 documented as of this encounter
--- OUTSIDE RECORDS SUMMARY | 2024-01-07 18:16 | XMS_ITS | Encounter Summary ---
Author Organization [facility] Address [address] [place] [address] Care Team Providers Care Junior Automation Engineer Name Role Phone Lita Oseguera Unavailable Unavailable Marija Edgar APRN ARMOR SENIOR SERGEANT Primary Care Provider Chanelle Gutierrez APRN CN Unavailab le Marija Edgar APRN ARMOR SENIOR SERGEANT Unavailable Unavail able Mynor Broussard MD Unavailable [phone] Keisha Dotson MD Unavailable Galo Burrell MD Unavailable Unavailable Diana Desir [facility] Unavailable Rain Galaviz PA-C Unavailable Summer Lara MD Unavailable [phone] Summer Lara MD Unavailable [phone] Summer Lara MD Unavailable [phone] Tavia Wyatt MD Unavailable Unavailable Johnny Murillo MD Unavailable [phone] Erica Farrell APRN ARMOR SENIOR SERGEANT Unavailable Teresita Bean [facility] Unavailable [phone] Tavia Wyatt MD Unavailable Unavailable Diana Desir [facility] Unavailable [phone] Rich Barrett MD Unavailable [phone] Neil Kent MD Unavailable Roney Story DPM Unavailable Erica Farrell HOLLOW WARE MAKER ARMOR SENIOR SERGEANT Unavailable ThangDiana [facility] Unavailable Jelena David OD Unavailable Galo Burrell MD Unavailable Unavailable HoLivan MD Unavailable Livan Sharif MD Unavailable Catherine Cm MD Unavailable + Valery Veronica PA-C Unavailable [phone] Catherine Cm MD Unavailable + Johnny Murillo MD Unavailable [phone] Brea Quinn HOLLOW WARE MAKER ARMOR SENIOR SERGEANT Unavailable [phone] Brea Quinn HOLLOW WARE MAKER ARMOR SENIOR SERGEANT Unavailable [phone] Jose Francisco Johnson MD Unavailable Livan Sharif MD Unavailable IsCahterine hobbs MD Unavailable + Sydnie Martinez RN Unavailable Unavailable Alfonso Renteria MD Unavailable Esha Grimm-C Primary Care Provider Cheng Todd PA-C Unavailable Radha Lomeli HOLLOW WARE MAKER ARMOR SENIOR SERGEANT Unavailable Jelena David OD Unavailable Pao Joseph RN Unavailable Unavailable Esha Grimm-C Unavailable [phone] Valery Veronica PA-C Unavailable [phone] Rey Tay MD Unavailable Rocky Zepeda DO Unavailable Philip Dumont MD Unavailable [phone] Meredith Carrera PA-C Unavailable [phone] Neil Kent MD Unavailable Juan Pablo Emmanuel MD Unavailable [phone] Encounter Details Date Type Department Care Team (Late st Contact Info) Description 04/28/2021 MyC Medical Advice [address] [phone] Lauren Gan, RN Social History [...] week 08/07/2020 How often do you attend [facility] or methodist services? More than 4 times per year [...] Answer Date Recorded PHQ-2 Score 0 04/02/2021 [facility] [...] in a snf (including now)? No 08/11/2020 [place] Depression Scale Answer Date Recorded [place] Depression Score 5 01/14/2021 Last EPDS Self [...] Description 01/09/2024 10:15 AM CDT Office Visit [facility] Neurology [address], [address] [place] [phone] Genny Hyman PAUcheC [facility] Epilepsy Care 5775 [facility] 255 [place], [place] 8[address] [place] [address] [place] [address] [place], [place] [address] 02/06/2024 10:00 AM CDT Office Visit [facility] [address] [address] Neil Kent MD 500 [place], [place] 135502 [phone] 03/06/2024 3:00 PM CDT Office Visit [facility] Heart [facility] [address] [facility] [address] [place] [address] Radha Lomeli, HOLLOW WARE MAKER ARMOR SENIOR SERGEANT [address] [place] [address] 03/07/2024 9:00 AM CDT Hospital Encounter [address] 5th [place] [phone] Rocky Zepeda DO 500 [place] [address] 03/07/2024 9:00 AM CDT - 03/07/2024 9:30 AM CDT Surgery [address] 5th [place] [phone] Rocky Zepeda DO 500 [place] [address] Esophagoscopy, gastroscopy, duodenoscopy (EGD), combined Scheduled Procedures Name Priority Associated Diagnoses Date/Ti ny ESOPHAGOGASTRODUODENOSCOPY Eosinophilic esophagitis Esophageal dysphagia 03/07/2024 9:00 AM CDT documented as of this encounter Visit Diagnoses Not on filedocumented in this encounter Additional Health Concerns Infection Onset Date Last Indicated Resolved Time Rule Out COVID-19 05/11/2021 05/11/2021 05/13/2021 10:18 AM CDT Rule Out COVID-19 07/13/2021 07/13/2021 07/14/2021 3:04 PM PAYROLL BOOKKEEPER Rule Out COVID-19 07/18/2021 07/18/2021 07/20/2021 1:56 PM PAYROLL BOOKKEEPER COVID-19 07/18/2021 07/18/2021 08/08/2021 11:3 9 PM PAYROLL BOOKKEEPER Rule Out COVID-19 12/18/2021 12/18/2021 12/19/2021 11:34 AM CDT Rule Out COVID-19 02/24/2022 02/24/2022 02/25/2022 1:08 PM CDT Rule Out COVID-19 04/26/2022 04/26/2022 04/26/2022 6:47 AM CDT Rule Out COVID-19 05/17/2022 05/17/2022 05/17/2022 10:20 PM PAYROLL BOOKKEEPER Rule Out COVID-19 06/09/2022 06/09/2022 06/09/2022 9:35 AM PAYROLL BOOKKEEPER COVID-19 06/09/2022 06/09/2022 06/30/2022 11:4 1 PM PAYROLL BOOKKEEPER Rule Out COVID-19 11/10/2022 11/10/2022 11/11/2022 12:17 PM CDT Rule Out COVID-19 03/07/2023 03/07/2023 03/07/2023 1:20 PM CDT Rule Out COVID-19 12/26/2023 12/26/2023 12/26/2023 9:50 AM CDT Assessment Noted Time PHQ-9 Depression Total Score: 2 04/02/20 10:19 AM CDT documented as of this encounter Care Teams Junior Automation Engineer Relationship Specialty Start Date End Date Marija Edgar APRN ARMOR SENIOR SERGEANT PCP - General Nurse Practitioner 04/30/20 04/14/23 Esha Grimm PA-C [address] [place] [phone] PCP - General Family Medicine 05/04/23 Lita Oseguera Personal Advocate & Liaison (PAL) 02/28/20 03/27/23 Chanelle Mccann APRN CNM [address] [address] Assigned OBGYN Provider 05/02/2005/09 Marija Edgar APRN ARMOR SENIOR SERGEANT Assigned PCP 06/08/20 04/29/23 Mynor Broussard MD 6363 [facility] 500 [place] [address] Assigned Surgical Provider 06/01/20 11/28/21 Keisha Dotson MD 909 [place] [address] Assigned Neuroscience Provider 06/04/20 04/01/23 Galo Burrell MD Assigned Heart and Vascular Provider 10/05/20 04/02/22 [facility] 3033 [place] [address] Pharmacist Pharmacist 04/17/21 Rain Galaviz PA-C [address] [facility] [address] [place] [address] Physician Interior Design Program Chair Dermatology 04/28/21 Summer Lara MD [address] [place] [address] Assigned OBGYN Provider 05/10/2105/23 Summer Lara MD [address] [place] [address] Assigned OBGYN Provider 05/31/21 2 Summer Lara MD [address] [place] [address] Assigned OBGYN Provider 05/24/2105/30 Tavia Wyatt MD [address] [place] [address] Dermatology 07/14/21 Johnny Murillo MD [address] [place] [address] Assigned Musculoskeletal Provider 08/30/21 03/17/22 Erica Farrell APRN ARMOR SENIOR SERGEANT [address] [place] [address] Nurse Practitioner Cardiovascular Disease 09/09/21 Teresita Bean, [facility] [address] [facility] [address] [place] [phone] Pharmacist Pharmacist 09/24/21 09/29/21 Tavia Wyatt MD Assigned Surgical Provider 11/29/21 05/07/22 [facility] 3033 [place] [address] Assigned MTM Pharmacist 01/02/22 Rich Barrett MD 516 [facility] 9A [place] [address] Physician Ophthalmology 01/21/22 Neil Kent MD 500 [place], [place] 234195 Dermatology 02/24/22 Roney Story DPM [address] [facility] [address] [place], [place] [address] Assigned Musculoskeletal Provider 03/20/22 08/13/22 YanaanthonyErica youssef APRN ARMOR SENIOR SERGEANT 1700 [place] [address] Assigned Heart and Vascular Provider 04/03/22 04/16/22 Diana Desir, [facility] 30[address] [place], [place] 314466 Assigned MTM Pharmacist 04/07/22 Jelena David OD [address] [facility] [place] [address] Assigned Surgical Provider 05/08/22 10/08/22 Galo Burrell MD Assigned Heart and Vascular Provider 04/17/22 06/11/22 Livan Sharif MD [address], [address] [place] [address] Cardiovascular Disease 05/14/22 Livan Sharif MD [address], [address] [place] [address] Assigned Heart and Vascular Provider 06/12/22 07/23/22 Catherine Cm MD [address] [place] [address] Cardiovascular Disease 07/21/22 Valery Veronica, PAUcheC 909 [place] [address] Physician Interior Design Program Chair Dermatology 07/21/22 Catherine Cm MD [address] [place] [address] Assigned Heart and Vascular Provider 07/24/22 11/05/22 Johnny Murillo MD [address] [place], [place] [address] Assigned Musculoskeletal Provider 08/14/22 10/08/22 Brea Quinn APRN ARMOR SENIOR SERGEANT 500 [place], [place] 9787[address] Nurse Practitioner Dermatology 09/21/22 Brea Quinn APRN ARMOR SENIOR SERGEANT 6401 [place] [address] Assigned Surgical Provider 10/09/22 [place] [address] [place] [address] 889987 Assigned Musculoskeletal Provider 10/09/22 Livan Sharif MD [address], [address] [place] [address] Assigned Heart and Vascular Provider 11/06/22 11/12/22 Catherine Cm MD [address] [place] [address]465 Assigned Heart and Vascular Provider 11/13/22 05/27/23 Sydnie Martinez RN Personal Advocate & Liaison (PAL) Family Medicine 03/28/23 07/31/23 Alfonso Renteria MD 5775 [facility] [address] [place] [address] Assigned Neuroscience Provider 04/02/23 Cheng Todd PA-C [address] [place] [address] Assigned PCP 04/30/23 07/15/23 Radha Lomeli APRN ARMOR SENIOR SERGEANT 6[address] [facility] [address] [place] [address] Assigned Heart and Vascular Provider 05/28/23 Jelena David OD [address] [facility] [place] [address] Ophthalmology 06/15/23 Pao Joseph, VJ Personal Advocate & Liaison (PAL) Nurse 08/01/23 11/07/23 Esha Grimm PA-C [address] [place] [address] Assigned PCP 07/16/23 Valery Veornica PA-C [address] [place] [address] 112465 Physician Interior Design Program Chair Dermatology 09/19/23 Rey Tay MD [address] [place] [address] 837855 Gastroenterology 09/20/23 Rocky Zepeda DO [address] [place] [address] 595915 Physician Gastroenterology 09/20/23 Philip Dumont MD 516 [place] [address] Physician Ophthalmology 09/22/23 Meredith Carrera PA-C 9 [place] [address] Assigned Gastroenterology Provider 11/01/23 Neil Kent MD [address] [address] Dermatology 11/02/23 [place] [address] [place] [address] [place] [address] Neurological Surgery 12/26/23 documented as of this encounter
--- OUTSIDE RECORDS SUMMARY | 2024-01-07 18:17 | XMS_ITS | Encounter Summary ---
Author Organization [facility] Address [address] [place] [address] Care Team Providers Care Forensic Audit Expert Name Role Phone Lita Oseguera Unavailable Unavailable Marija Edgar APRN CONCRETE FINISHER Primary Care Provider Chanelle Gutierrez APRN CN Unavailab le Marija Edgar APRN CONCRETE FINISHER Unavailable Unavail able Mynor Broussard MD Unavailable [phone] Keisha Dotson MD Unavailable Galo Burrell MD Unavailable Unavailable Diana Desir [facility] Unavailable Rain Galaviz PA-C Unavailable Summer Lara MD Unavailable [phone] Summer Lara MD Unavailable [phone] Summer Lara MD Unavailable [phone] Tavia Wyatt MD Unavailable Unavailable Johnny Murillo MD Unavailable Erica Farrell APRN CONCRETE FINISHER Unavailable Teresita Bean [facility] Unavailable [phone] Tavia Wyatt MD Unavailable Unavailable Diana Desir [facility] Unavailable [phone] Rich Barrett MD Unavailable [phone] Neil Kent MD Unavailable Roney Story DPM Unavailable Erica Farrell DESIGNER ARCHITECT CONCRETE FINISHER Unavailable ThangDiana [facility] Unavailable Jelena David OD Unavailable Galo Burrell MD Unavailable Unavailable HoLivan MD Unavailable Livan Sharif MD Unavailable Catherine Cm MD Unavailable + Valery Veronica PA-C Unavailable [phone] Catherine Cm MD Unavailable + Johnny Murillo MD Unavailable [phone] Brea Quinn DESIGNER ARCHITECT CONCRETE FINISHER Unavailable [phone] Brea Quinn DESIGNER ARCHITECT CONCRETE FINISHER Unavailable [phone] Jose Francisco Johnson MD Unavailable Livan Sharif MD Unavailable IsCatherine hobbs MD Unavailable + Sydnie Martinez RN Unavailable Unavailable Alfonso Renteria MD Unavailable Esha Grimm-C Primary Care Provider Cheng Todd PA-C Unavailable Radha Lomeli DESIGNER ARCHITECT CONCRETE FINISHER Unavailable Jelena David OD Unavailable Pao Joseph RN Unavailable Unavailable Esha Grimm-C Unavailable [phone] Valery Veronica PA-C Unavailable [phone] Rey Tay MD Unavailable Rocky Zepeda DO Unavailable Philip Dumont MD Unavailable [phone] Meredith Carrera PA-C Unavailable [phone] Neil Kent MD Unavailable Juan Pablo Emmanuel MD Unavailable [phone] Encounter Details Date Type Department Care Team (Late st Contact Info) Description 04/17/2021 MyC Medical Advice [address] [address] Marija Edgar APRN CNP Social History Tobacco [...] week 08/07/2020 How often do you attend [facility] or sikhism services? More than 4 [...] [facility] - Occupational Stress Questionnaire Answer [...] in a usp (including now)? No 08/11/2020 [place] Depression Scale Answer Date Recorded [place] Depression Score 5 01/14/2021 Last EPDS Self [...] 01/09/2024 10:15 AM CDT Office Visit [facility] Neurology [address], [address] [place] [phone] Genny Hyman PAUcheC [facility] Epilepsy Care 5775 [facility] 255 [place], [place] [address] [place] [address] [address] [place], [place] [address] 02/06/2024 10:00 AM CDT Office Visit [facility] [address] [address] Neil Kent MD 500 [place], [place] [phone] 03/06/2024 3:00 PM CDT Office Visit [facility] [place] [address] [facility] [address] [place] [phone] Radha Lomeli, DESIGNER ARCHITECT CONCRETE FINISHER [address] [place] [address] 03/07/2024 9:00 AM CDT Hospital Encounter [address]th [place] [phone] Rocky Zepeda DO 500 [place], [place] [address]465 03/07/2024 9:00 AM CDT - 03/07/2024 9:30 AM CDT Surgery [address] [phone] Rocky Zepeda DO 500 [place], [place] [address] Esophagoscopy, gastroscopy, duodenoscopy (EGD), combined Scheduled Procedures Name Priority Associated Diagnoses Date/Ti ca ESOPHAGOGASTRODUODENOSCOPY Eosinophilic esophagitis Esophageal dysphagia 03/07/2024 9:00 AM CDT documented as of this encounter Visit Diagnoses Not on filedocumented in this encounter Additional Health Concerns Infection Onset Date Last Indicated Resolved Time Rule Out COVID-19 05/11/2021 05/11/2021 05/13/2021 10:18 AM CDT Rule Out COVID-19 07/13/2021 07/13/2021 07/14/2021 3:04 PM DEHORNER Rule Out COVID-19 07/18/2021 07/18/2021 07/20/2021 1:56 PM DEHORNER COVID-19 07/18/2021 07/18/2021 08/08/2021 11:3 9 PM DEHORNER Rule Out COVID-19 12/18/2021 12/18/2021 12/19/2021 11:34 AM CDT Rule Out COVID-19 02/24/2022 02/24/2022 02/25/2022 1:08 PM CDT Rule Out COVID-19 04/26/2022 04/26/2022 04/26/2022 6:47 AM CDT Rule Out COVID-19 05/17/2022 05/17/2022 05/17/2022 10:20 PM DEHORNER Rule Out COVID-19 06/09/2022 06/09/2022 06/09/2022 9:35 AM DEHORNER COVID-19 06/09/2022 06/09/2022 06/30/2022 11:4 1 PM DEHORNER Rule Out COVID-19 11/10/2022 11/10/2022 11/11/2022 12:17 PM CDT Rule Out COVID-19 03/07/2023 03/07/2023 03/07/2023 1:20 PM CDT Rule Out COVID-19 12/26/2023 12/26/2023 12/26/2023 9:50 AM CDT Assessment Noted Time PHQ-9 Depression Total Score: 2 04/02/20 10:19 AM CDT documented as of this encounter Care Teams Forensic Audit Expert Relationship Specialty Start Date End Date Marija Edgar APRN CONCRETE FINISHER PCP - General Nurse Practitioner 04/30/20 04/14/23 Esha Grimm PA-C [address] [place] [phone] PCP - General Family Medicine 05/04/23 Lita Oseguera Personal Advocate & Liaison (PAL) 02/28/20 03/27/23 Chanelle Mccann APRN CNM [address] [address] Assigned OBGYN Provider 05/02/2005/09 Marija Edgar APRN CONCRETE FINISHER Assigned PCP 06/08/20 04/29/23 Mynor Broussard MD 6[address] [facility] [facility] [place] [address] Assigned Surgical Provider 06/01/20 11/28/21 Keisha Dotson MD 909 [place] [address] Assigned Neuroscience Provider 06/04/20 04/01/23 Galo Burrell MD Assigned Heart and Vascular Provider 10/05/20 04/02/22 Diana Desir, [facility] 3033 [place] [address] Pharmacist Pharmacist 04/17/21 Rain Galaviz PA-C [address] [place] [address] [address] [facility] [place] [address] Physician Digital Media Strategist Dermatology 04/28/21 Summer Lara MD [address] [place] [address] Assigned OBGYN Provider 05/10/2105/23 Summer Lara MD [address] [place] [address] Assigned OBGYN Provider 05/31/21 2 Summer Lara MD [address] [place] [address] Assigned OBGYN Provider 05/24/2105/30 Tavia Wyatt MD [address] [place] [address] Dermatology 07/14/21 Johnny Murillo MD [address] [place] [address] Assigned Musculoskeletal Provider 08/30/21 03/17/22 Erica Farrell APRN CONCRETE FINISHER [address] [place] [address] Nurse Practitioner Cardiovascular Disease 09/09/21 Teresita Bean, [facility] [address] [facility] [place] [address] Pharmacist Pharmacist 09/24/21 09/29/21 Tavia Wyatt MD Assigned Surgical Provider 11/29/21 05/07/22 [facility] [address] [place] [address] Assigned MTM Pharmacist 01/02/22 Rich Barrett MD 516 [facility] 9[address] [place], [place] [address] Physician Ophthalmology 01/21/22 Neil Kent MD 500 [place], [place] 123985 Dermatology 02/24/22 Roney Story DPM [address] [facility] [address] [place], [place] 6439[address] Assigned Musculoskeletal Provider 03/20/22 08/13/22 Erica Farrell APRN CONCRETE FINISHER 1700 [place] [address] Assigned Heart and Vascular Provider 04/03/22 04/16/22 Diana Desir, [facility] [address] [place], [place] [address] Assigned MTM Pharmacist 04/07/22 Jelena David OD [address] [facility] [address] Assigned Surgical Provider 05/08/22 10/08/22 Galo Burrell MD Assigned Heart and Vascular Provider 04/17/22 06/11/22 Livan Sharif MD [address] [place] [address] Cardiovascular Disease 05/14/22 Livan Sharif MD [address], [address] [place] [address] Assigned Heart and Vascular Provider 06/12/22 07/23/22 Catherine Cm MD [address] [place], [place] [address] Cardiovascular Disease 07/21/22 Valery Veronica PAUcheC 909 [place] [address] Physician Digital Media Strategist Dermatology 07/21/22 Catherine Cm MD [address] [place] [address] Assigned Heart and Vascular Provider 07/24/22 11/05/22 Johnny Murillo MD [address] [facility] [address] [place], [place] [address] Assigned Musculoskeletal Provider 08/14/22 10/08/22 Brea Quinn APRN CONCRETE FINISHER 500 [facility] [place] [place], [place] [address] Nurse Practitioner Dermatology 09/21/22 Brea Quinn APRN CONCRETE FINISHER 6401 [facility] [place] [address] Assigned Surgical Provider 10/09/22 [place] [address] [address] [facility] 300 [place], [place] [address] Assigned Musculoskeletal Provider 10/09/22 Livan Sharif MD [address], [address] [place] [address] Assigned Heart and Vascular Provider 11/06/22 11/12/22 Catherine Cm MD [address] [place] [address] Assigned Heart and Vascular Provider 11/13/22 05/27/23 Sydnie Martinez RN Personal Advocate & Liaison (PAL) Family Medicine 03/28/23 07/31/23 Alfonso Renteria MD [address] [facility] [address] [place] [address] Assigned Neuroscience Provider 04/02/23 Cheng Todd PA-C [address] [place] [address] Assigned PCP 04/30/23 07/15/23 Radha Lomeli APRN CONCRETE FINISHER 6405 [facility] [address] [place] [address] Assigned Heart and Vascular Provider 05/28/23 Jelena David OD [address] [facility] [address] Ophthalmology 06/15/23 Pao Joseph, VJ Personal Advocate & Liaison (PAL) Nurse 08/01/23 11/07/23 Esha Grimm PA-C [address] [place] [address] Assigned PCP 07/16/23 Valery Veronica PA-C [address] [place] [place] [address] Physician Digital Media Strategist Dermatology 09/19/23 Rey Tay MD [address] [place] [address]115 Gastroenterology 09/20/23 Rocky Zepeda DO [address] [place] [address]99[address] Physician Gastroenterology 09/20/23 Philip Dumont MD 516 [place] [address] Physician Ophthalmology 09/22/23 Meredith Carrera PA-C 909 [place] [address] Assigned Gastroenterology Provider 11/01/23 Neil Kent MD [address] [address] Dermatology 11/02/23 [place] [address] [place] [address] Neurological Surgery 12/26/23 documented as of this encounter
--- OUTSIDE RECORDS SUMMARY | 2024-01-07 18:17 | XMS_ITS | Encounter Summary ---
Author Organization [facility] Address [address] [place] [address] Care Team Providers Care Emergency Planner Name Role Phone Lita Oseguera Unavailable Unavailable Marija Edgar APRN SENIOR ARCHITECT/DESIGN MANAGER Primary Care Provider Chanelle Gutierrez APRN CNM Unavailab le Kyara De La Fuente RN Unavailable [phone] Marija Edgar APRN SENIOR ARCHITECT/DESIGN MANAGER Unavailable Unavail able Mynor Broussard MD Unavailable [phone] Keisha Dotson MD Unavailable Stacey Briones LUNCH COUNTER MANAGER Unavailable Lesley Moody CHW Unavailable Mary Mejia Unavailable Unavailable Lita Oseguera Unavailable Unavailable Galo Burrell MD Unavailable Unavailable Cristina Wood Unavailable Lesley Moody CHW Unavailable [phone] Meredith Bedoya Unavailable Unavailable Cristina Wood Unavailable Diana Desir [facility] Unavailable [phone] Rain Galaviz PA-C Unavailable Summer Lara MD Unavailable [phone] Summer Lara MD Unavailable [phone] Summer Lara MD Unavailable + [phone] Tavia Wyatt MD Unavailable Unavailable SemJohnny mckeon MD Unavailable +1- Erica Farrell OYSTER HARVESTER SENIOR ARCHITECT/DESIGN MANAGER Unavailable + BeanTeresita H Unavailable Tavia Wyatt MD Unavailable Unavailable Diana Desir [facility] Unavailable +[phone] Rich Barrett MD Unavailable + Neil Kent MD Unavailable + Roney Story DPM Unavailable [phone] Erica Farrell OYSTER HARVESTER SENIOR ARCHITECT/DESIGN MANAGER Unavailable + Diana Desir [facility] Unavailable +[phone] Jelena David Radha Unavailable [phone] Galo Burrell MD Unavailable Unavailable Livan Sharif MD Unavailable + Livan Sharif MD Unavailable + Catherine Cm MD Unavailable + Valery Veronica PA-C Unavailable +[phone] Catherine Cm MD Unavailable + Johnny Murillo MD Unavailable +1- Brea Quinn OYSTER HARVESTER SENIOR ARCHITECT/DESIGN MANAGER Unavailable +1- Brea Quinn OYSTER HARVESTER SENIOR ARCHITECT/DESIGN MANAGER Unavailable [phone] Jose Francisco Johnson MD Unavailable + Livan Sharif MD Unavailable + Catherine Cm MD Unavailable + Sydnie Martinez RN Unavailable Unavailable Alfonso Renteria MD Unavailable [phone] Esha Grimm PA-C Primary Care Provider Cheng Todd PA-C Unavailable Radha Lomeli APRN SENIOR ARCHITECT/DESIGN MANAGER Unavailable [phone] Jelena Daivd OD Unavailable Pao Joseph RN Unavailable Unavailable Esha GrimmC Unavailable [phone] Valery Veronica PA-C Unavailable [phone] Rey Tay MD Unavailable Rocky Zepeda DO Unavailable Philip Dumont MD Unavailable [phone] Meredith Carrera PA-C Unavailable [phone] Neil Kent MD Unavailable Juan Pablo Emmanuel MD Unavailable [phone] Reason for Visit * Reason Onset Date Comments MyChart Communication 09/08/2020 Encounter Details Date Type Department Care Team (Latest Contact Info) Description 09/08/2020 MyC Medical Connie [address] [address] Marija Edgar APRN SENIOR ARCHITECT/DESIGN MANAGER MyChart Communication Social History Tobacco Use Types [...] you attend chur or roman catholic services? More than 4 times per [...] Answer Date Recorded PHQ-2 Score 0 08/12/2020 [facility] of [facility]at [...] COVID-19? No / Unsure 09/09/2020 10:09 AM PRECISION HONER documented as of this encounter Miscellaneous Notes * Telephone Encounter - Natasha Luis RN - 09/09/2020 7:29 AM CST See Sokolin message, cardio ordered, pt cannot view echo [...] RN, BSN Message handled by CLINIC NURSE.' ISION HONER * Telephone Encounter - Ever Cardozo MA - 09/09/2020 7:08 AM CST Triage, could you please see if results are posted yet in regards to patients ultrasound. Ever Cardozo FUR TRIMMER (AAMA) ISION HONER documented in this encounter Plan of Treatment Upcoming Encounters Date Type Department Care Team (Late st Contact Info) Description 01/09/2024 10:15 AM CDT Office Visit [facility] Neurology [facility] - [address], [address] [place] [phone] Genny Hyman PA-C [facility] Epilepsy [facility] 5775 [facility] 255 [place], [place] [address] [place] [address] [facility] 300 [place] [address] 02/06/2024 10:00 AM CDT Office Visit [facility] [address] [phone] Neil Kent MD 500 [place], [place] [address] 03/06/2024 3:00 PM CDT Office Visit [facility] Heart [facility] [address] [facility] [address] [place] [phone] Radha Lomeli, OYSTER HARVESTER SENIOR ARCHITECT/DESIGN MANAGER 6405 [facility] [address] [place], [place] [address] 03/07/2024 9:00 AM CDT Hospital Encounter [facility] 909 [facility] 5th [place] [phone] Rocky Zepeda DO 500 [place], [place] [address] 03/07/2024 9:00 AM CDT - 03/07/2024 9:30 AM CDT Surgery [facility] 909 [facility] 5th [place] [phone] Rocky Zepeda DO 500 [place], [place] 8024[address] Esophagoscopy, gastroscopy, duodenoscopy (EGD), combined Scheduled Procedures [...] Out COVID-19 07/13/2021 07/13/2021 07/14/2021 3:04 PM PRECISION HONER Rule Out COVID-19 07/18/2021 07/18/2021 07/20/2021 1:56 PM PRECISION HONER COVID-19 07/18/2021 07/18/2021 08/08/2021 11:3 9 PM PRECISION HONER Rule Out COVID-19 12/18/2021 12/18/2021 12/19/2021 11:34 AM CDT Rule Out COVID-19 02/24/2022 02/24/2022 02/25/2022 1:08 PM CDT Rule Out COVID-19 04/26/2022 04/26/2022 04/26/2022 6:47 AM CDT Rule Out COVID-19 05/17/2022 05/17/2022 05/17/2022 10:20 PM PRECISION HONER Rule Out COVID-19 06/09/2022 06/09/2022 06/09/2022 9:35 AM PRECISION HONER COVID-19 06/09/2022 06/09/2022 06/30/2022 11:4 1 PM PRECISION HONER Rule Out COVID-19 11/10/2022 11/10/2022 11/11/2022 12:17 PM CDT Rule Out COVID-19 03/07/2023 03/07/2023 03/07/2023 1:20 PM CDT Rule Out COVID-19 12/26/2023 12/26/2023 12/26/2023 9:50 AM CDT Assessment Noted Time PHQ-9 Depression Total Score: 9 06/25/20 7:04 AM PRECISION HONER documented as of this encounter Care Teams Emergency Planner Relationship Specialty Start Date End Date Marija Edgar APRN SENIOR ARCHITECT/DESIGN MANAGER PCP - General Nurse Practitioner 04/30/20 04/14/23 Esha Grimm PA-C [address] [place] [phone] PCP - General Family Medicine 05/04/23 Lita Oseguera Personal Advocate & Liaison (PAL) 02/28/20 03/27/23 Chanelle Mccann APRN CNM [address] [place] [address] 373287 Assigned OBGYN Provider 05/02/2005/09 Kyara De La Fuente, VJ Specialty Forklift Driver Neurology 06/04/20 03/05/21 Marija Edgar APRN SENIOR ARCHITECT/DESIGN MANAGER Assigned PCP 06/08/20 04/29/23 Mynor Broussard MD [address] [place] [address] Assigned Surgical Provider 06/01/20 11/28/21 Keisha Dotson MD 909 [place], [place] 9839[address] Assigned Neuroscience Provider 06/04/20 04/01/23 Stacey Briones, [facility] Lead Forklift Driver Primary Care - CC 08/11/2012/30 Lesley Moody, [facility] Community Health Worker 08/11/2010/01 Mary Mejia Financial Resource Worker 09/02/20 10/06/20 Lita Oseguera Personal Advocate & Liaison (PAL) Family Medicine 09/10/20 09/21/20 Galo Burrell MD Assigned Heart and Vascular Provider 10/05/20 04/02/22 Cristina Wood Financial Resource Worker 10/07/20 10/14/20 Lesley Moody, [facility] Community Health Worker 10/23/2012/30 Meredith Bedoya Financial Resource Worker 10/23/20 11/23/20 Cristina Wood Financial Resource Worker 02/09/21 02/09/21 Diana Desir, [facility] 3033 [place] [address] Pharmacist Pharmacist 04/17/21 Rain Galaviz PA-C [address] [place] [address] [address] [place] [address] Physician Global Logistics Analyst Dermatology 04/28/21 Summer Lara MD [address] [place] [address] Assigned OBGYN Provider 05/10/2105/23 Summer Lara MD [address] [place] [address] Assigned OBGYN Provider 05/31/21 Summer Lara MD [address] [place] [address] Assigned OBGYN Provider 05/24/2105/30 Tavia Wyatt MD [address] [place] [address] Dermatology 07/14/21 Johnny Murillo MD 2512 [address] [facility] [address] [place] [address] Assigned Musculoskeletal Provider 08/30/21 03/17/22 Erica Farrell APRN SENIOR ARCHITECT/DESIGN MANAGER 6405 [facility] [address] [place] [address] Nurse Practitioner Cardiovascular Disease 09/09/21 Teresita Bean [facility] [address] [id number] Pharmacist Pharmacist 09/24/21 09/29/21 Tavia Wyatt MD Assigned Surgical Provider 11/29/21 05/07/22 [facility] 3033 [place] [address] Assigned MTM Pharmacist 01/02/22 Rich Barrett MD 516 [facility], [address] [address] Physician Ophthalmology 01/21/22 Neil Kent MD 500 [place] [address] Dermatology 02/24/22 Roney Story DPM [address] [facility] [address] [place] [address] Assigned Musculoskeletal Provider 03/20/22 08/13/22 Erica Farrell APRN SENIOR ARCHITECT/DESIGN MANAGER 1700 [place] [address] Assigned Heart and Vascular Provider 04/03/22 04/16/22 Diana Desir, [facility] 3033 [place] [address] Assigned MTM Pharmacist 04/07/22 Jelena David OD [address] [facility] [address] Assigned Surgical Provider 05/08/22 10/08/22 Galo Burrell MD Assigned Heart and Vascular Provider 04/17/22 06/11/22 Livan Sharif MD 6408 [facility] [address] [place] [address] Cardiovascular Disease 05/14/22 Livan Sharif MD [address] [place] [address] [place] [address] Assigned Heart and Vascular Provider 06/12/22 07/23/22 Catherine Cm MD [address] [facility] [place] [address] Cardiovascular Disease 07/21/22 Valery Veronica, PA-C [address] [place] [address] 906835 Physician Global Logistics Analyst Dermatology 07/21/22 Catherine Cm MD [address] [place] [address] [place] [address] Assigned Heart and Vascular Provider 07/24/22 11/05/22 Johnny Murillo MD [address] [place] [address] 915604 Assigned Musculoskeletal Provider 08/14/22 10/08/22 Brea Quinn APRN SENIOR ARCHITECT/DESIGN MANAGER [address] [place] [address] 067765 Nurse Practitioner Dermatology 09/21/22 Brea Quinn APRN SENIOR ARCHITECT/DESIGN MANAGER [address] [place] [address] [place]E 703282 Assigned Surgical Provider 10/09/22 [place] [address] [place], [place] [address], [place] [address] Assigned Musculoskeletal Provider 10/09/22 Livan Sharif MD [address], [facility] [address] [place] [address] Assigned Heart and Vascular Provider 11/06/22 11/12/22 Catherine Cm MD [address] [facility] [address] [place] [address] Assigned Heart and Vascular Provider 11/13/22 05/27/23 Sydnie Martinez RN Personal Advocate & Liaison (PAL) Family Medicine 03/28/23 07/31/23 Alfonso Renteria MD 5775 [facility] 200 [place] [address] Assigned Neuroscience Provider 04/02/23 Cheng Todd PA-C [address] [place] [address] [id number] Assigned PCP 04/30/23 07/15/23 Radha Lomeli, ARLENE SENIOR ARCHITECT/DESIGN MANAGER [address] [place] [address] Assigned Heart and Vascular Provider 05/28/23 Jelena David OD [address] [facility] [address] Ophthalmology 06/15/23 Pao Joseph RN Personal Advocate & Liaison (PAL) Nurse 08/01/23 11/07/23 Esha Grimm PA-C [address] [place] [address] Assigned PCP 07/16/23 Valery Veronica PA-C [address] [place] [address] Physician Global Logistics Analyst Dermatology 09/19/23 Rey Tay MD [address] [place] [address] MD Gastroenterology 09/20/23 Rocky Zepeda DO [address] [place] [address] 394465 Physician Gastroenterology 09/20/23 Philip Dumont MD [address] [place] [address] 871515 Physician Ophthalmology 09/22/23 Meredith Carrera PA-C [address] [place] [address] 886505 Assigned Gastroenterology Provider 11/01/23 Neil Kent MD [address] 731670 Dermatology 11/02/23 [place] [address] [address] 842887 Neurological Surgery 12/26/23 documented as of this encounter
--- OUTSIDE RECORDS SUMMARY | 2024-01-07 18:17 | XMS_ITS | Encounter Summary ---
Author Organization [place] Address [address] [place] [address] Care Team Providers Care Adjustment Examiner Name Role Phone Lita Oseguera Unavailable Unavailable Marija Edgar APRN APPLICATION PROCESSOR Primary Care Provider Chanelle Gutierrez REPAIR DEPARTMENT MANAGER CNM Unavailab le Kyara De La Fuente RN Unavailable [phone] Marija Edgar APRN APPLICATION PROCESSOR Unavailable Unavail able Mynor Broussard MD Unavailable [phone] Keisha Dotson MD Unavailable [phone] Stacey Briones FIELD ARTILLERY TARGETING TECHNICIAN Unavailable Galo Burrell MD Unavailable Unavailable Lesley Moody CHW Unavailable [phone] Meredith Bedoya Unavailable Unavailable Cristina Wood Unavailable Diana Desir [facility] Unavailable [phone] Rain Galaviz PA-C Unavailable [phone] Summer Lara MD Unavailable [phone] Summer Lara MD Unavailable [phone] Summer Lara MD Unavailable [phone] Tavia Wyatt MD Unavailable Unavailable Johnny Murillo MD Unavailable [phone] Erica Farrell REPAIR DEPARTMENT MANAGER APPLICATION PROCESSOR Unavailable Vikas Teresita Jesus Watson [facility] Unavailable Tavia Wyatt MD Unavailable Unavailable Kendrick Desirelle Stanislav [facility] Unavailable [phone] Rich Barrett MD Unavailable Neil Kent MD Unavailable Roney Story DPM Unavailable [phone] Erica Farrell REPAIR DEPARTMENT MANAGER APPLICATION PROCESSOR Unavailable Thang Diana Stanislav [facility] Unavailable [phone] Tommy Davidmao Templetone OD Unavailable Galo Burrell MD Unavailable Unavailable Livan Sharif MD Unavailable + Livan Sharif MD Unavailable + Catherine Cm MD Unavailable + Valery Veronica-C Unavailable [phone] Catherine Cm MD Unavailable + Johnny Murillo MD Unavailable [phone] Brea Quinn REPAIR DEPARTMENT MANAGER APPLICATION PROCESSOR Unavailable [phone] Brea Quinn REPAIR DEPARTMENT MANAGER APPLICATION PROCESSOR Unavailable [phone] Jose Francisco Johnson MD Unavailable Livan Sharif MD Unavailable + Catherine Cm MD Unavailable + Sydnie Martinez RN Unavailable Unavailable Alfonso Renteria MD Unavailable [phone] Esha Grimm PA-C Primary Care Provider Cheng Todd PA-C Unavailable Radha Lomeli APRN APPLICATION PROCESSOR Unavailable [phone] Jelena David OD Unavailable Pao Joseph RN Unavailable Unavailable Wicho Grimmlincoln Medina PA-C Unavailable [phone] Vaelry Veronica PA-C Unavailable [phone] Rey Tay MD Unavailable Rocky Zepeda DO Unavailable Philip Dumont MD Unavailable [phone] Meredith Carrera PA-C Unavailable [phone] Neil Kent MD Unavailable Juan Pablo Emmanuel MD Unavailable [phone] Encounter Details Date Type Department Care Team (Late st Contact Info) Description 10/24/2020 MyC Medical Advice [address] [address] Marija Edgar APRN APPLICATION PROCESSOR Social History Tobacco Use Types Packs/Day Years [...] Answer Date Recorded PHQ-2 Score 3 09/29/2020 [facility] - Occupational Stress Questionnaire [...] slept in a retirement (including now)? No 08/11/2020 Education Answer Date [...] 11:44 AM CDT Replied to patient via SFOXt. Anthony Doe PA-C on 10/27/2020 at 11:54 AM documented in this encounter Plan of Treatment Upcoming Encounters Date Type Department Care Team (Late st Contact Info) Description 01/09/2024 10:15 AM CDT Office Visit [facility] - [address], [address] [place] [address] Genny Hyman PA-C [facility] Epilepsy [facility] 5775 [facility] [address] [place], [place] [phone] [place] [address] [place] [address] 02/06/2024 10:00 AM CDT Office Visit [facility] [address] [phone] Neil Kent MD [address] [place], [place] [phone] 03/06/2024 3:00 PM CDT Office Visit [facility] Heart [facility] [address] [place] [place] [phone] Radha Lomeli APRN APPLICATION PROCESSOR [address] [place], [place] [address] 03/07/2024 9:00 AM CDT Hospital Encounter [facility] [address] [place] [address] 5th [place] [phone] Rocky Zepeda DO 500 [place], [place] [phone] 03/07/2024 9:00 AM CDT - 03/07/2024 9:30 AM CDT Surgery [facility] [address] [place] [address] Rocky Zepeda DO 500 [place], [place] [phone] Esophagoscopy, gastroscopy, duodenoscopy (EGD), combined Scheduled Procedures [...] Out COVID-19 07/13/2021 07/13/2021 07/14/2021 3:04 PM CRAPS MANAGER Rule Out COVID-19 07/18/2021 07/18/2021 07/20/2021 1:56 PM CRAPS MANAGER COVID-19 07/18/2021 07/18/2021 08/08/2021 11:3 9 PM CRAPS MANAGER Rule Out COVID-19 12/18/2021 12/18/2021 12/19/2021 11:34 AM CDT Rule Out COVID-19 02/24/2022 02/24/2022 02/25/2022 1:08 PM CDT Rule Out COVID-19 04/26/2022 04/26/2022 04/26/2022 6:47 AM CDT Rule Out COVID-19 05/17/2022 05/17/2022 05/17/2022 10:20 PM CRAPS MANAGER Rule Out COVID-19 06/09/2022 06/09/2022 06/09/2022 9:35 AM CRAPS MANAGER COVID-19 06/09/2022 06/09/2022 06/30/2022 11:4 1 PM CRAPS MANAGER Rule Out COVID-19 11/10/2022 11/10/2022 11/11/2022 12:17 PM CDT Rule Out COVID-19 03/07/2023 03/07/2023 03/07/2023 1:20 PM CDT Rule Out COVID-19 12/26/2023 12/26/2023 12/26/2023 9:50 AM CDT Assessment Noted Time PHQ-9 Depression Total Score: 6 09/30/19 3:25 PM CDT documented as of this encounter Care Teams Adjustment Examiner Relationship Specialty Start Date End Date Marija Edgar APRN APPLICATION PROCESSOR PCP - General Nurse Practitioner 04/30/20 04/14/23 Esha Grimm PA-C [address] [place] [phone] PCP - General Family Medicine 05/04/23 Lita Oseguera Personal Advocate & Liaison (PAL) 02/28/20 03/27/23 Chanelle Mccann APRN CNM [address] [address] [facility], [facility] 200 [place] [address] Assigned OBGYN Provider 05/02/2005/09 Kyara De La Fuente, RN Specialty Vending Machine Operator Neurology 06/04/20 03/05/21 Marija Edgar APRN APPLICATION PROCESSOR Assigned PCP 06/08/20 04/29/23 Mynor Broussard MD 6363 [facility] 500 [place], [place] 776205 Assigned Surgical Provider 06/01/20 11/28/21 Keisha Dotson MD 909 [place], [place] 353155 Assigned Neuroscience Provider 06/04/20 04/01/23 Stacey Briones, FIELD ARTILLERY TARGETING TECHNICIAN Lead Vending Machine Operator Primary Care - CC 08/11/2012/30 Galo Burrell MD Assigned Heart and Vascular Provider 10/05/20 04/02/22 Lesley Moody, W Community Health Worker 10/23/2012/30 Meredith Bedoya Financial Resource Worker 10/23/20 11/23/20 Cristina Wood Financial Resource Worker 02/09/21 02/09/21 Diana Desir, [facility] [address] [place] [address] Pharmacist Pharmacist 04/17/21 Rain Galaviz PA-C [address] [place] [address] [place] [address] Physician Transition Assistant Dermatology 04/28/21 Summer Lara MD 606 [facility] [place] [address] Assigned OBGYN Provider 05/10/2105/23 Summer Lara MD 606 [facility] [place] [address] Assigned OBGYN Provider 05/31/21 Summer Lara MD 606 [facility] [place] [address] Assigned OBGYN Provider 05/24/2105/30 Tavia Wyatt MD 606 [facility] [place] [address] Dermatology 07/14/21 Johnny Murillo MD [address] [place] [address] Assigned Musculoskeletal Provider 08/30/21 03/17/22 Erica Farrell APRN APPLICATION PROCESSOR 6405 [facility] S [address] [place] [address] Nurse Practitioner Cardiovascular Disease 09/09/21 Teresita Bean [facility] [address] [place] [address] Pharmacist Pharmacist 09/24/21 09/29/21 Tavia Wyatt MD Assigned Surgical Provider 11/29/21 05/07/22 Diana Desir, [facility] [address] [place] [address] Assigned MTM Pharmacist 01/02/22 Rich Barrett MD [address] [address] Physician Ophthalmology 01/21/22 Neil Kent MD 500 [place] [address] Dermatology 02/24/22 Roney Story DPM 15815 [facility] 300 [place] [address] Assigned Musculoskeletal Provider 03/20/22 08/13/22 Erica Farrell APRN APPLICATION PROCESSOR 1700 [place] [address] Assigned Heart and Vascular Provider 04/03/22 04/16/22 Diana Desir, [facility]3 [place] [address] Assigned MTM Pharmacist 04/07/22 Jelena David OD [address] [facility] [place] [address] Assigned Surgical Provider 05/08/22 10/08/22 Galo Burrell MD Assigned Heart and Vascular Provider 04/17/22 06/11/22 Livan Sharif MD [address], [facility] [address] [place] [phone] Cardiovascular Disease 05/14/22 Livan Sharif MD [address], [facility] [address] [place] 25[address]45 Assigned Heart and Vascular Provider 06/12/22 07/23/22 Catherine Cm MD [address] [facility]00 [place] 7[address] Cardiovascular Disease 07/21/22 Valery Veronica, PA-C [address] [place] [address] 257365 Physician Transition Assistant Dermatology 07/21/22 Catherine Cm MD [address] [facility]00 [place] 137425 Assigned Heart and Vascular Provider 07/24/22 11/05/22 Johnny Murillo MD [address] [place] [address] [phone] Assigned Musculoskeletal Provider 08/14/22 10/08/22 Brea Quinn APRN APPLICATION PROCESSOR [address] [place] [address] [phone] Nurse Practitioner Dermatology 09/21/22 Brea Quinn, REPAIR DEPARTMENT MANAGER APPLICATION PROCESSOR 6401 [facility] [place] [address] Assigned Surgical Provider 10/09/22 [place] [address] [facility] 300 [place] [address] Assigned Musculoskeletal Provider 10/09/22 Livan Sharif MD [address], [facility] [address] [place] [address] Assigned Heart and Vascular Provider 11/06/22 11/12/22 Catherine Cm MD [address] [facility] [place] [address] Assigned Heart and Vascular Provider 11/13/22 05/27/23 Sydnie Martinez RN Personal Advocate & Liaison (PAL) Family Medicine 03/28/23 07/31/23 Alfonso Renteira MD 5775 [facility] 200 [place] [address] Assigned Neuroscience Provider 04/02/23 Cheng Todd PA-C [address] [place] [address] Assigned PCP 04/30/23 07/15/23 Radha Lomeli APRN APPLICATION PROCESSOR [address] [place] 738125 Assigned Heart and Vascular Provider 05/28/23 Jelena David Radha, OD [address] [facility] [place] [address] MD Ophthalmology 06/15/23 Pao Joseph, RN Personal Advocate & Liaison (PAL) Nurse 08/01/23 11/07/23 Esha Grimm PA-C [address] [place] [phone] Assigned PCP 07/16/23 Valery Veronica PA-C [address] [place] [address] 664225 Physician Transition Assistant Dermatology 09/19/23 Rey aTy MD [address] [place] [address] [phone] MD Gastroenterology 09/20/23 Rocky Zepeda DO [address] [place] [address] 046685 Physician Gastroenterology 09/20/23 Philip Dumont MD [address] [place] [address] 649625 Physician Ophthalmology 09/22/23 Meredith Carrera PA-C [address] [place] [address] 512275 Assigned Gastroenterology Provider 11/01/23 Neil Kent MD [address] [address] Dermatology 11/02/23 [place] [address] [place] [address] Neurological Surgery 12/26/23 documented as of this encounter
--- OUTSIDE RECORDS SUMMARY | 2024-01-07 18:17 | XMS_ITS | Encounter Summary ---
Author Organization [place] Address [address] [place] [address] Care Team Providers Care Supervisor Records Change Name Role Phone Lita Oseguera Unavailable Unavailable Marija Edgar APRN CASING RUNNING MACHINE TENDER Primary Care Provider Chanelle Gutierrez FLAVORING OIL FILTERER CNM Unavailab le Kyara De La Fuente RN Unavailable [phone] Marija Edgar APRN CASING RUNNING MACHINE TENDER Unavailable Unavail able Mynor Broussard MD Unavailable [phone] Keisha Dotson MD Unavailable Stacey Briones SPECIAL EDUCATION CURRICULUM SPECIALIST Unavailable Mary Mejia Unavailable Unavailable Galo Burrell MD Unavailable Unavailable Cristina Wood Unavailable Lesley Moody [facility] Unavailable [phone] Meredith Bedoya Unavailable Unavailable Cristina Wood Unavailable [facility] Desir [facility] Unavailable [phone] Rain Galaviz PA-C Unavailable Summer Lara MD Unavailable [phone] Summer Lara MD Unavailable [phone] Summer Lara MD Unavailable [phone] Tavia Wyatt MD Unavailable Unavailable HarveyJohnny mckeon MD Unavailable +1- Erica Farrell FLAVORING OIL FILTERER CASING RUNNING MACHINE TENDER Unavailable + [facility]resita [facility] Unavailable Tavia Wyatt MD Unavailable Unavailable [facility] Unavailable [phone] Rich Barrett MD Unavailable Neil Kent MD Unavailable Roney Story DPM Unavailable [phone] Erica Farrell FLAVORING OIL FILTERER CASING RUNNING MACHINE TENDER Unavailable + [facility] Des[facility] Unavailable [phone] Jelena David Unavailable Galo Burrell MD Unavailable Unavailable Livan Sharif MD Unavailable + Livan Sharif MD Unavailable + Catherine Cm MD Unavailable + Valery Veronica PA-C Unavailable [phone] Catherine Cm MD Unavailable + Johnny Murillo MD Unavailable +1- Brea Quinn FLAVORING OIL FILTERER CASING RUNNING MACHINE TENDER Unavailable +1- Brea Quinn FLAVORING OIL FILTERER CASING RUNNING MACHINE TENDER Unavailable [phone] Jose Francisco Johnson MD Unavailable Livan Sharif MD Unavailable + Catherine Cm MD Unavailable + Sydnie Martinez RN Unavailable Unavailable Alfonso Renteria MD Unavailable [phone] Alfa, Esha M PA-C Primary Care Provider PerezCheng Abe PA-C Unavailable [phone] Radha Lomeli APRN CASING RUNNING MACHINE TENDER Unavailable [phone] Jelena David OD Unavailable Pao Joseph RN Unavailable Unavailable Wicho Grimmlincoln Medina PA-C Unavailable [phone] Valery Veronica PA-C Unavailable [phone] Rey Tay MD Unavailable Rocky Zepeda DO Unavailable Philip Dumont MD Unavailable [phone] Meredith Carrera PA-C Unavailable [phone] Neil Kent MD Unavailable Juan Pablo Emmanuel MD Unavailable [phone] Encounter Details Date Type Department Care Team (Late st Contact Info) Description 10/02/2020 MyC Medical Advice [facility] Care Coordination [address] [place] [phone] Stacey Briones, [facility] Social History Tobacco Use Types Packs/Day Years [...] do you attend chur or restorationism services? More than 4 times [...] Answer Date Recorded PHQ-2 Score 3 09/29/2020 [facility] Questionnaire Answer [...] slept in a penitentiary (including now)? No 08/11/2020 Education Answer Date [...] Visit [facility] Neurology Clinics - [address], [address] [place] [address] Genny Hyman PA-C [facility] Epilepsy Care 5775 [facility] 255 [place], [place] 6[address] [place] [address] [place] [address] 02/06/2024 10:00 AM CDT Office Visit [facility] [address] [phone] Neil Kent MD 500 [place] [address] 03/06/2024 3:00 PM CDT Office Visit [facility] Heart [facility] [address] [place] [address] [place] [address] Radha Lomeli, ARLENE CASING RUNNING MACHINE TENDER [address] [place] [address] 03/07/2024 9:00 AM CDT Hospital Encounter [address] 5th [place] [phone] Rocky Zepeda DO 500 [place] [address] 03/07/2024 9:00 AM CDT - 03/07/2024 9:30 AM CDT Surgery [address] [phone] Rocky Zepeda DO 500 [place] [address] Esophagoscopy, gastroscopy, duodenoscopy (EGD), combined Scheduled Procedures Name Priority Associated Diagnoses Date/Ti ia ESOPHAGOGASTRODUODENOSCOPY Eosinophilic esophagitis Esophageal dysphagia 03/07/2024 9:00 AM CDT documented as of this encounter Visit Diagnoses Not on filedocumented in this encounter Additional Health Concerns Infection Onset Date Last Indicated Resolved Time Rule Out COVID-19 11/05/2020 11/05/2020 11/06/2020 1:09 PM CDT Rule Out COVID-19 05/11/2021 05/11/2021 05/13/2021 10:18 AM CDT Rule Out COVID-19 07/13/2021 07/13/2021 07/14/2021 3:[address] PACKER OPERATOR Rule Out COVID-19 07/18/2021 07/18/2021 07/20/2021 1:[address] PACKER OPERATOR COVID-19 07/18/2021 07/18/2021 08/08/2021 11:[address] PACKER OPERATOR Rule Out COVID-19 12/18/2021 12/18/2021 12/19/2021 11:34 AM CDT Rule Out COVID-19 02/24/2022 02/24/2022 02/25/2022 1:08 PM CDT Rule Out COVID-19 04/26/2022 04/26/2022 04/26/2022 6:47 AM CDT Rule Out COVID-19 05/17/2022 05/17/2022 05/17/2022 10:[address] PACKER OPERATOR Rule Out COVID-19 06/09/2022 06/09/2022 06/09/2022 9:[address] PACKER OPERATOR COVID-19 06/09/2022 06/09/2022 06/30/2022 11:[address]ACKER OPERATOR Rule Out COVID-19 11/10/2022 11/10/2022 11/11/2022 12:17 PM CDT Rule Out COVID-19 03/07/2023 03/07/2023 03/07/2023 1:20 PM CDT Rule Out COVID-19 12/26/2023 12/26/2023 12/26/2023 9:50 AM CDT Assessment Noted Time PHQ-9 Depression Total Score: 6 09/30/19 3:25 PM CDT documented as of this encounter Care Teams Supervisor Records Change Relationship Specialty Start Date End Date Marija Edgar APRN CNP PCP - General Nurse Practitioner 04/30/20 04/14/23 Esha Grimm PA-C [address] [place] [phone] PCP - General Family Medicine 05/04/23 Lita Oseguera Personal Advocate & Liaison (PAL) 02/28/20 03/27/23 Chanelle Mccann APRN [place]dam [address] [facility], [address] 200 [place] [address] Assigned OBGYN Provider 05/02/2005/09 Kyara De La Fuente, RN Specialty Embedded Software Engineer Neurology 06/04/20 03/05/21 Marija Edgar APRN CASING RUNNING MACHINE TENDER Assigned PCP 06/08/20 04/29/23 Mynor Broussard MD 6363 [facility] [address] [place], [place] 4285[address] Assigned Surgical Provider 06/01/20 11/28/21 Keisha Dotson MD 909 [place] [address] Assigned Neuroscience Provider 06/04/20 04/01/23 Stacey Briones, [facility] Lead Embedded Software Engineer Primary Care - CC 08/11/2012/30 Mayr Mejia Financial Resource Worker 09/02/20 10/06/20 Galo Burrell MD Assigned Heart and Vascular Provider 10/05/20 04/02/22 Cristina Wood Financial Resource Worker 10/07/20 10/14/20 Lesley Moody, [facility] Community Health Worker 10/23/2012/30 Meredith Bedoya Financial Resource Worker 10/23/20 11/23/20 Cristina Wood Financial Resource Worker 02/09/21 02/09/21 Diana Desir, [facility] [address] [place] [address] Pharmacist Pharmacist 04/17/21 Rain Galaviz PA-C [address] [place] [address] [place] [address] Physician Metal Grader Dermatology 04/28/21 Summer Lara MD [address] [place] [address] Assigned OBGYN Provider 05/10/2105/23 Summer Lara MD [address] [place] [address] Assigned OBGYN Provider 05/31/21 Summer Lara MD [address] [place] [address] Assigned OBGYN Provider 05/24/2105/30 Tavia Waytt MD [address] [place] [address] Dermatology 07/14/21 Johnny Murillo MD [address] [place] [address] Assigned Musculoskeletal Provider 08/30/21 03/17/22 Erica Farrell APRN CASING RUNNING MACHINE TENDER [address] [facility] [address] [place] [address] Nurse Practitioner Cardiovascular Disease 09/09/21 Teresita Bean RPH [address] [facility] [place] [address] Pharmacist Pharmacist 09/24/21 09/29/21 Tavia Wyatt MD Assigned Surgical Provider 11/29/21 05/07/22 Diana Desir, [facility] [address] [place] [address] Assigned MTM Pharmacist 01/02/22 Rich Barrett MD [address] [address] Physician Ophthalmology 01/21/22 Neil Kent MD 500 [place] [address] Dermatology 02/24/22 [place] [address] [facility] 300 [place] [address] Assigned Musculoskeletal Provider 03/20/22 08/13/22 Erica Farrell APRN CASING RUNNING MACHINE TENDER 1700 [place] [address] Assigned Heart and Vascular Provider 04/03/22 04/16/22 Diana Desir, [facility] [address] [place] [address] Assigned MTM Pharmacist 04/07/22 Jelena David OD [address] [place] [address] Assigned Surgical Provider 05/08/22 10/08/22 Galo Burrell MD Assigned Heart and Vascular Provider 04/17/22 06/11/22 Livan Sharif MD [address], [address] [address] [place] [address] Cardiovascular Disease 05/14/22 Livan Sharif MD [address], [address] [address] [place] [address] Assigned Heart and Vascular Provider 06/12/22 07/23/22 Catherine Cm MD [address] [address] [place] [address] Cardiovascular Disease 07/21/22 Valery Veornica, PAUcheC [address] [place] [address] 152325 Physician Metal Grader Dermatology 07/21/22 Catherine Cm MD [address] [address] [place], [place] 4[address]5 Assigned Heart and Vascular Provider 07/24/22 11/05/22 Johnny Murillo MD [facility] [address] 373464 Assigned Musculoskeletal Provider 08/14/22 10/08/22 Brea Quinn APRN CASING RUNNING MACHINE TENDER [address] [place] [address] 371445 Nurse Practitioner Dermatology 09/21/22 Brea Quinn APRN CASING RUNNING MACHINE TENDER [address] [place] [address] Assigned Surgical Provider 10/09/22 [place] [address] [facility] 300 [place] [address] Assigned Musculoskeletal Provider 10/09/22 Livan Sharif MD [address], [facility] [address] [place] [phone] Assigned Heart and Vascular Provider 11/06/22 11/12/22 Catherine Cm MD [address] [place] 487055 Assigned Heart and Vascular Provider 11/13/22 05/27/23 JuanSydnie malik, RN Personal Advocate & Liaison (PAL) Family Medicine 03/28/23 07/31/23 Alfonso Renteria MD 5775 [facility] 200 [place], [place] 622256 Assigned Neuroscience Provider 04/02/23 Cheng Todd PA-C [address] [place] [address] Assigned PCP 04/30/23 07/15/23 Radha Lomeli APRN CASING RUNNING MACHINE TENDER [address] [place] [address] Assigned Heart and Vascular Provider 05/28/23 Jelena David OD [address] [place] [address] Ophthalmology 06/15/23 Pao Joseph, RN Personal Advocate & Liaison (PAL) Nurse 08/01/23 11/07/23 Esha Grimm PA-C [address] [place] [phone] Assigned PCP 07/16/23 Valery Veronica PA-C [address] [place] [address] 191975 Physician Metal Grader Dermatology 09/19/23 Rey Tay MD [address] [place] [address] 005745 MD Gastroenterology 09/20/23 Rocky Zepeda DO [address] [place] [address] 298445 Physician Gastroenterology 09/20/23 Philip Dumont MD [address] [place] [address] 964865 Physician Ophthalmology 09/22/23 Meredith Carrera PA-C [address] [place] [address] 899055 Assigned Gastroenterology Provider 11/01/23 Neil Kent MD [address] [address] Dermatology 11/02/23 [place] [address] [place] [address] Neurological Surgery 12/26/23 documented as of this encounter
--- OUTSIDE RECORDS SUMMARY | 2024-01-07 18:17 | XMS_ITS | Encounter Summary ---
Author Organization [place] Address [address] [place] [address] Care Team Providers Care Boiler Attendant Name Role Phone Lita Oseguera Unavailable Unavailable Marija Edgar STRIP DEBURRER TISSUE PACKER Primary Care Provider Chanelle Gutierrez STRIP DEBURRER CNM Unavailab le Kyara De La Fuente RN Unavailable [phone] Marija Edgar APRN TISSUE PACKER Unavailable Unavail able Mynor Broussard MD Unavailable [phone] Keisha Dotson MD Unavailable Galo Burrell MD Unavailable Unavailable Cristina Wood Unavailable Diana Desir [facility] Unavailable [phone] Rain Galaviz PA-C Unavailable Summer Lara MD Unavailable [phone] Summer Lara MD Unavailable [phone] Summer Lara MD Unavailable [phone] Tavia Wyatt MD Unavailable Unavailable Johnny Murillo MD Unavailable Erica Farrell APRN TISSUE PACKER Unavailable Teresita Bean [facility] Unavailable [phone] Tavia Wyatt MD Unavailable Unavailable ThangKendrickDiana Stanislav [facility] Unavailable [phone] Rich Barrett MD Unavailable [phone] Neil Kent MD Unavailable Roney Story DPM Unavailable [phone] Erica Farrell STRIP DEBURRER TISSUE PACKER Unavailable + Diana Desir [facility] Unavailable [phone] Jelena David OD Unavailable [phone] Galo Burrell MD Unavailable Unavailable Livan Sharif MD Unavailable + Livan Sharif MD Unavailable + Catherine Cm MD Unavailable + Valery Veronica PA-C Unavailable [phone] Catherine Cm MD Unavailable + Johnny Murillo MD Unavailable [phone] Brea Quinn STRIP DEBURRER TISSUE PACKER Unavailable [phone] Brea Quinn STRIP DEBURRER TISSUE PACKER Unavailable [phone] Jose Francisco Johnson MD Unavailable Livan Sharif MD Unavailable + Catherine Cm MD Unavailable + Sydnie Martinez RN Unavailable Unavailable Alfonso Renteria MD Unavailable [phone] Esha Grimm PA-C Primary Care Provider Cheng Todd PA-C Unavailable [phone] Radha Lomeli STRIP DEBURRER TISSUE PACKER Unavailable [phone] Jelena David OD Unavailable [phone] Pao Joseph RN Unavailable Unavailable Alfa Eshalincoln DOWC Unavailable [phone] Valery Veronica PA-C Unavailable [phone] Rey Tay MD Unavailable Rocky Zepeda DO Unavailable Philip Dumont MD Unavailable [phone] Meredith Carrera PA-C Unavailable [phone] Neil Kent MD Unavailable Juan Pablo Emmanuel MD Unavailable [phone] Encounter Details Date Type Department Care Team (Late st Contact Info) Description 01/06/2021 Orders Only [facility] - Surgical Specialties Service Line [address] [place] [address] Saurabh Marcial MD 4443 [facility] 200 [place] [address] Indication for care in labor and delivery, [...] Answer Date Recorded PHQ-2 Score 3 09/29/2020 [facility] - Occupational Stress Questionnaire Answer [...] in a assisted (including now)? No 08/11/2020 Education Answer Date [...] Office Visit [facility] [address], [address] [place] [address] Genny Hyman PA-C [facility] Epilepsy Care 5775 [facility] 255 [place], [place] [phone] [place] [address] [place], [place] [phone] 02/06/2024 10:00 AM CDT Office Visit [facility] [address] [phone] Neil Kent MD 500 [place] [address] 03/06/2024 3:00 PM CDT Office Visit [facility] Heart [facility] [address] [facility] [address] [place] [phone] Radha Lomeli E, STRIP DEBURRER TISSUE PACKER [address] [place] [address] 03/07/2024 9:00 AM CDT Hospital Encounter [address] [phone] Rocky Zepeda DO 500 [place] [address] 03/07/2024 9:00 AM CDT - 03/07/2024 9:30 AM CDT Surgery [address] [phone] Rocyk Zepeda DO 500 [place] [address] Esophagoscopy, gastroscopy, duodenoscopy (EGD), combined Scheduled Procedures Name Priority Associated Diagnoses Date/Ti mi ESOPHAGOGASTRODUODENOSCOPY Eosinophilic esophagitis Esophageal dysphagia 03/07/2024 9:00 AM CDT documented as of this encounter Results * Asymptomatic COVID-19 Virus (Coronavirus) by PCR (01/09/2021 10:44 AM CDT) COVID-19 Virus PCR to [facility] - Source Nasopharyngeal 01/09/2021 10:45 AM CDT [facility] COVID-19 Virus [facility] to [facility] - Result Test received-See reflex to IDDL test SARS CoV2 (COVID-19) Virus RT-PCR 01/09/2021 6:32 PM CDT INFECTI[facility] DISEASES [facility], [facility] Specimen from nasopharyngeal structure (specimen) 01/09/2021 10:44 AM CDT 01/09/2021 10:45 AM CDT Saurabh Marcial MD LAB - MICRO GENE RAL ORDERABLES INFECTIOUS DISEASES [facility]NOST[facility]OR[facility], [facility] [address] [place] [address], [facility] [address] [place] [address], [facility] [phone] documented in this encounter Visit Diagnoses Diagnosis [...] COVID-19 07/13/2021 07/13/2021 07/14/2021 3:04 PM MACHINE MAINTENANCE MECHANIC Rule Out COVID-19 07/18/2021 07/18/2021 07/20/2021 1:56 PM MACHINE MAINTENANCE MECHANIC COVID-19 07/18/2021 07/18/2021 08/08/2021 11:3 9 PM MACHINE MAINTENANCE MECHANIC Rule Out COVID-19 12/18/2021 12/18/2021 12/19/2021 11:34 AM CDT Rule Out COVID-19 02/24/2022 02/24/2022 02/25/2022 1:08 PM CDT Rule Out COVID-19 04/26/2022 04/26/2022 04/26/2022 6:47 AM CDT Rule Out COVID-19 05/17/2022 05/17/2022 05/17/2022 10:20 PM MACHINE MAINTENANCE MECHANIC Rule Out COVID-19 06/09/2022 06/09/2022 06/09/2022 9:35 AM MACHINE MAINTENANCE MECHANIC COVID-19 06/09/2022 06/09/2022 06/30/2022 11:4 1 PM MACHINE MAINTENANCE MECHANIC Rule Out COVID-19 11/10/2022 11/10/2022 11/11/2022 12:17 PM CDT Rule Out COVID-19 03/07/2023 03/07/2023 03/07/2023 1:20 PM CDT Rule Out COVID-19 12/26/2023 12/26/2023 12/26/2023 9:50 AM CDT Assessment Noted Time PHQ-9 Depression Total Score: 6 09/30/19 3:25 PM CDT documented as of this encounter Care Teams Boiler Attendant Relationship Specialty Start Date End Date Marija Edgar APRN TISSUE PACKER PCP - General Nurse Practitioner 04/30/20 04/14/23 Esha Grimm PA-C [address] [place] [phone] PCP - General Family Medicine 05/04/23 Lita Oseguera Personal Advocate & Liaison (PAL) 02/28/20 03/27/23 Chanelle Mccann APRN CNM [address] [place] [address] 200 [place] [address] Assigned OBGYN Provider 05/02/2005/09 Kyara De La Fuente, RN Specialty Refinery Pipeline Operator Neurology 06/04/20 03/05/21 Marija Edgar APRN TISSUE PACKER Assigned PCP 06/08/20 04/29/23 Mynor Broussard MD 6363 [facility] 500 [place] [address] Assigned Surgical Provider 06/01/20 11/28/21 Keisha Dotson MD [address] [place] [address] Assigned Neuroscience Provider 06/04/20 04/01/23 Galo Burrell MD Assigned Heart and Vascular Provider 10/05/20 04/02/22 Cristina Wood Financial Resource Worker 02/09/21 02/09/21 Diana Desir, [facility] [address] [place] [address] Pharmacist Pharmacist 04/17/21 Rain Galaviz PA-C [address] [place] [address] [place] [address] Physician Voice Over Announcer Dermatology 04/28/21 Summer Lara MD [address] [place] [address] Assigned OBGYN Provider 05/10/2105/23 Summer Lara MD [address] [place] [address] Assigned OBGYN Provider 05/31/21 2 Summer Lara MD [address] [place] [address] Assigned OBGYN Provider 05/24/2105/30 Tavia Wyatt MD [address] [place] [address] Dermatology 07/14/21 Johnny Murillo MD [address] [facility] [address] [place] [address] Assigned Musculoskeletal Provider 08/30/21 03/17/22 Erica Farrell APRN TISSUE PACKER 6405 [facility] [address] [place] [address] Nurse Practitioner Cardiovascular Disease 09/09/21 Teresita Bean [facility] [address] [facility] [address] [place] [phone] Pharmacist Pharmacist 09/24/21 09/29/21 Tavia Wyatt MD Assigned Surgical Provider 11/29/21 05/07/22 Diana Desir, [facility] 3033 [place] [address] Assigned MTM Pharmacist 01/02/22 Rich Barrett MD [address] [address] Physician Ophthalmology 01/21/22 Neil Kent MD 500 [place], [place] [address] Dermatology 02/24/22 Roney Story DPM [address] [facility] [address] [place] [address] Assigned Musculoskeletal Provider 03/20/22 08/13/22 Erica Farrell APRN TISSUE PACKER 1700 [place] [address] Assigned Heart and Vascular Provider 04/03/22 04/16/22 Diana Desir, [facility] [address] [place], [place] 891396 Assigned MTM Pharmacist 04/07/22 Frankie Jelena GarciaSONJA [address] [facility] [place] [address] Assigned Surgical Provider 05/08/22 10/08/22 Galo Burrell MD Assigned Heart and Vascular Provider 04/17/22 06/11/22 Livan Sharif MD [address] [place] [address] Cardiovascular Disease 05/14/22 Livan Sharif MD [address] [place] [address] Assigned Heart and Vascular Provider 06/12/22 07/23/22 Catherine Cm MD [address] [place] [address]055 Cardiovascular Disease 07/21/22 Valery Veronica, PA-C 909 [place], [place] 320875 Physician Voice Over Announcer Dermatology 07/21/22 Catherine Cm MD [address] [place] 7[address]645 Assigned Heart and Vascular Provider 07/24/22 11/05/22 Johnny Murillo MD [facility] [address] [place] [address] Assigned Musculoskeletal Provider 08/14/22 10/08/22 Brea Quinn APRN TISSUE PACKER 500 [place] [address] Nurse Practitioner Dermatology 09/21/22 Brea Quinn APRN TISSUE PACKER 6401 [place], [place] 732292 Assigned Surgical Provider 10/09/22 [place] [address] [facility] 300 [place] [address] Assigned Musculoskeletal Provider 10/09/22 Livan Sharif MD [address], [facility] [address] [place] [address] Assigned Heart and Vascular Provider 11/06/22 11/12/22 Catherine Cm MD [address] [facility] [address] [place] [address] Assigned Heart and Vascular Provider 11/13/22 05/27/23 Sydnie Martinez RN Personal Advocate & Liaison (PAL) Family Medicine 03/28/23 07/31/23 Alfonso Renteria MD 5775 [facility] 200 [place], [place] 136786 Assigned Neuroscience Provider 04/02/23 Cheng Todd PA-C [address] [place] [address] Assigned PCP 04/30/23 07/15/23 Radha Lomeli APRN TISSUE PACKER 6405 [facility] [address] [place], [place] 6[address] Assigned Heart and Vascular Provider 05/28/23 Jelena David OD [address] [facility] [place] [address] MD Ophthalmology 06/15/23 Pao Joseph, VJ Personal Advocate & Liaison (PAL) Nurse 08/01/23 11/07/23 Esha Grimm PA-C [address] [place] [phone] Assigned PCP 07/16/23 Valery Veronica PA-C [address] [place] [address] [phone] Physician Voice Over Announcer Dermatology 09/19/23 Rey Tay MD [address] [place] [address] 595345 MD Gastroenterology 09/20/23 Rocky Zepeda DO [address] [place] [address] 699475 Physician Gastroenterology 09/20/23 Philip Dumont MD [address] [place] [address] 584815 Physician Ophthalmology 09/22/23 Meredith Carrera PA-C [address] [place] [address] 277505 Assigned Gastroenterology Provider 11/01/23 Neil Kent MD [address] [place] [address] Dermatology 11/02/23 [place] [address] [place] [address] Neurological Surgery 12/26/23 documented as of this encounter
--- OUTSIDE RECORDS SUMMARY | 2024-01-07 18:17 | XMS_ITS | Encounter Summary ---
Author Organization [place] Address [address] [place] [address] Care Team Providers Care Research Program Coordinator Name Role Phone Lita Oseguera Unavailable Unavailable Marija Edgar COMMERCIAL RETOUCHER COVER MACHINE OPERATOR Primary Care Provider Chanelle Gutierrez COMMERCIAL RETOUCHER CNM Unavailab le Kyara De La Fuente RN Unavailable [phone] Marija Edgar APRN COVER MACHINE OPERATOR Unavailable Unavail able Mynor Broussard MD Unavailable [phone] Keisha Dotson MD Unavailable Galo Burrell MD Unavailable Unavailable Cristina Wood Unavailable Diana Desir [facility] Unavailable [phone] Rain Galaviz PA-C Unavailable Summer Lara MD Unavailable [phone] Summer Lara MD Unavailable [phone] Summer Lara MD Unavailable [phone] Tavia Wyatt MD Unavailable Unavailable Johnny Murillo MD Unavailable Erica Farrell APRN COVER MACHINE OPERATOR Unavailable Teresita Bean [facility] Unavailable [phone] Tavia Wyatt MD Unavailable Unavailable ThangKendrickDiana Stanislav [facility] Unavailable [phone] Rich Barrett MD Unavailable [phone] Neil Kent MD Unavailable Roney Story DPM Unavailable [phone] Erica Farrell COMMERCIAL RETOUCHER COVER MACHINE OPERATOR Unavailable + Diana Desir [facility] Unavailable [phone] Jelena David OD Unavailable [phone] Galo Burrell MD Unavailable Unavailable Livan Sharif MD Unavailable + Livan Sharif MD Unavailable + Catherine Cm MD Unavailable + Valery Veronica PA-C Unavailable +[phone] Catherine Cm MD Unavailable + Johnny Murillo MD Unavailable [phone] Brea Quinn COMMERCIAL RETOUCHER COVER MACHINE OPERATOR Unavailable [phone] Brea Quinn COMMERCIAL RETOUCHER COVER MACHINE OPERATOR Unavailable [phone] Jose Francisco Johnson MD Unavailable Livan Sharif MD Unavailable + Catherine Cm MD Unavailable + Sydnie Martinez RN Unavailable Unavailable Alfonso Renteria MD Unavailable [phone] Esha Grimm PA-C Primary Care Provider Cheng Todd PA-C Unavailable +[phone] Radha Lomeli COMMERCIAL RETOUCHER COVER MACHINE OPERATOR Unavailable [phone] Jelena David OD Unavailable [phone] Pao Joseph RN Unavailable Unavailable Wicho Grimmlincoln DOWC Unavailable [phone] Valery VeronicaC Unavailable [phone] Rey Tay MD Unavailable Duane Rockyanne STEVENS Unavailable Philip Dumont MD Unavailable [phone] Meredith CarreraC Unavailable [phone] Neil Kent MD Unavailable Juan Pablo Emmanuel MD Unavailable [phone] Encounter Details Date Type Department Care Team (Late st Contact Info) Description 02/06/2021 [facility] [address] [address] Bob Diop Social History Tobacco [...] Answer Date Recorded PHQ-2 Score 3 09/29/2020 [facility] - [...] slept in a longterm (including now)? No 08/11/2020 [place] Depression Scale Answer Date Recorded [place] Depression Score 5 01/14/2021 Last EPDS Self [...] AM CDT Office Visit [facility] Neurology [address], [address] [place] [address] Genny Hyman PA-C [facility] 5775 [facility] 255 [place], [place] [phone] [place] [address] [place], [place] 338467 02/06/2024 10:00 AM CDT Office Visit [facility] [address] [phone] Neil Kent MD 500 [place] [address] 03/06/2024 3:00 PM CDT Office Visit [facility] [address] [place] [phone] Radha Lomeli, COMMERCIAL RETOUCHER COVER MACHINE OPERATOR [address] [place] [address] 03/07/2024 9:00 AM CDT Hospital Encounter [address] [phone] Rocky Zepeda DO 500 [place] [address] 03/07/2024 9:00 AM CDT - 03/07/2024 9:30 AM CDT Surgery [address] [phone] Rocky Zepeda DO 500 [place] [address] Esophagoscopy, gastroscopy, duodenoscopy (EGD), combined Scheduled Procedures Name Priority Associated Diagnoses Date/Ti md ESOPHAGOGASTRODUODENOSCOPY Eosinophilic esophagitis Esophageal dysphagia 03/07/2024 9:00 AM CDT documented as of this encounter Visit Diagnoses Not on filedocumented in this encounter Additional Health Concerns Infection Onset Date Last Indicated Resolved Time Rule Out COVID-19 05/11/2021 05/11/2021 05/13/2021 10:18 AM CDT Rule Out COVID-19 07/13/2021 07/13/2021 07/14/2021 3:04 PM CHANGE ROOM ATTENDANT Rule Out COVID-19 07/18/2021 07/18/2021 07/20/2021 1:56 PM CHANGE ROOM ATTENDANT COVID-19 07/18/2021 07/18/2021 08/08/2021 11:3 9 PM CHANGE ROOM ATTENDANT Rule Out COVID-19 12/18/2021 12/18/2021 12/19/2021 11:34 AM CDT Rule Out COVID-19 02/24/2022 02/24/2022 02/25/2022 1:08 PM CDT Rule Out COVID-19 04/26/2022 04/26/2022 04/26/2022 6:47 AM CDT Rule Out COVID-19 05/17/2022 05/17/2022 05/17/2022 10:20 PM CHANGE ROOM ATTENDANT Rule Out COVID-19 06/09/2022 06/09/2022 06/09/2022 9:35 AM CHANGE ROOM ATTENDANT COVID-19 06/09/2022 06/09/2022 06/30/2022 11:4 1 PM CHANGE ROOM ATTENDANT Rule Out COVID-19 11/10/2022 11/10/2022 11/11/2022 12:17 PM CDT Rule Out COVID-19 03/07/2023 03/07/2023 03/07/2023 1:20 PM CDT Rule Out COVID-19 12/26/2023 12/26/2023 12/26/2023 9:50 AM CDT Assessment Noted Time PHQ-9 Depression Total Score: 6 09/30/19 3:25 PM CDT documented as of this encounter Care Teams Research Program Coordinator Relationship Specialty Start Date End Date Marija Edgar APRN COVER MACHINE OPERATOR PCP - General Nurse Practitioner 04/30/20 04/14/23 Esha Grimm PA-C [address] [place] [phone] PCP - General Family Medicine 05/04/23 Lita Oseguera Personal Advocate & Liaison (PAL) 02/28/20 03/27/23 Chanelle Mccann APRN CNM [address] [place], [address] [address] Assigned OBGYN Provider 05/02/2005/09 Kyara De La Fuente, RN Specialty Bill Sorter Neurology 06/04/20 03/05/21 Marija Edgar APRN COVER MACHINE OPERATOR Assigned PCP 06/08/20 04/29/23 Mynor Broussard MD [address] 0275[address] Assigned Surgical Provider 06/01/20 11/28/21 Keisha Dotson MD 909 [place], [place] [address] Assigned Neuroscience Provider 06/04/20 04/01/23 Galo Burrell MD Assigned Heart and Vascular Provider 10/05/20 04/02/22 Cristina Wood Financial Resource Worker 02/09/21 02/09/21 Diana Desir, [facility] 3033 [place], [place] [address] Pharmacist Pharmacist 04/17/21 Rain Galaviz PA-C [address] [place] [address] [address] [place] [address] Physician Brick Grader Dermatology 04/28/21 Summer Lara MD [address] [place] [address] [phone] Assigned OBGYN Provider 05/10/2105/23 Summer Lara MD [address] [place] [address] [phone] Assigned OBGYN Provider 05/31/21 2 Summer Lara MD [address] [address] Assigned OBGYN Provider 05/24/2105/30 Tavia Wyatt MD [address] [address] Dermatology 07/14/21 Johnny Murillo MD [address] [place] [address] Assigned Musculoskeletal Provider 08/30/21 03/17/22 Erica Farrell APRN COVER MACHINE OPERATOR 6405 [facility] [address] [place] [address] Nurse Practitioner Cardiovascular Disease 09/09/21 Teresita Bean [facility] [address] [place], [place] [phone] Pharmacist Pharmacist 09/24/21 09/29/21 Tavia Wyatt MD Assigned Surgical Provider 11/29/21 05/07/22 [facility] [address] [place] [address] Assigned MTM Pharmacist 01/02/22 Rich Barrett MD 516 [facility] [address] [place] [address] Physician Ophthalmology 01/21/22 Neil Kent MD 500 [place] [address] Dermatology 02/24/22 [place] [address] [facility] [address] [place] [address] Assigned Musculoskeletal Provider 03/20/22 08/13/22 Erica Farrell APRN COVER MACHINE OPERATOR 1700 [place] [address] Assigned Heart and Vascular Provider 04/03/22 04/16/22 Diana Desir, [facility] 3033 [place] [address] Assigned MTM Pharmacist 04/07/22 Jelena David OD [address] [facility] [place] [address] Assigned Surgical Provider 05/08/22 10/08/22 Galo Burrell MD Assigned Heart and Vascular Provider 04/17/22 06/11/22 Livan Sharif MD [address] [place] [address] Cardiovascular Disease 05/14/22 Livan Sharif MD [address] [place] [address] Assigned Heart and Vascular Provider 06/12/22 07/23/22 Catherine Cm MD [address] [place] 182785 Cardiovascular Disease 07/21/22 Valery Veronica PA-C 9 [place], [place] 83[address] Physician Brick Grader Dermatology 07/21/22 Catherine Cm MD [address] [place] [address] Assigned Heart and Vascular Provider 07/24/22 11/05/22 Johnny Murillo MD [address] [place] [address] Assigned Musculoskeletal Provider 08/14/22 10/08/22 Brea Quinn APRN COVER MACHINE OPERATOR [address] [place] [address] Nurse Practitioner Dermatology 09/21/22 Brea Quinn APRN COVER MACHINE OPERATOR [address] [place] [address] Assigned Surgical Provider 10/09/22 [place] [address] [address] Assigned Musculoskeletal Provider 10/09/22 Livan Sharif MD [address], [facility]00 [place] [address] Assigned Heart and Vascular Provider 11/06/22 11/12/22 Catherine Cm MD [address] [facility]00 [place] [address] Assigned Heart and Vascular Provider 11/13/22 05/27/23 Sydnie Martinez, RN Personal Advocate & Liaison (PAL) Family Medicine 03/28/23 07/31/23 Alfonso Renteria MD 5775 [facility] 200 [place], [place] [address] Assigned Neuroscience Provider 04/02/23 Cheng Todd PA-C [address] [place] [address] [phone] Assigned PCP 04/30/23 07/15/23 Radha Lomeli APRN COVER MACHINE OPERATOR [address] [facility] [address] [place], [place] [address] Assigned Heart and Vascular Provider 05/28/23 Jelena David OD [address] [facility] [address] [place] [phone] Ophthalmology 06/15/23 Pao Joseph RN Personal Advocate & Liaison (PAL) Nurse 08/01/23 11/07/23 Esha Grimm PA-C [address] [place] [phone] Assigned PCP 07/16/23 Valery Veronica PA-C [address] [place] [address] 137165 Physician Brick Grader Dermatology 09/19/23 Rey Tay MD [address] [place] [address] [phone] MD Gastroenterology 09/20/23 Rocky Zepeda DO [address] [place] [address] 714885 Physician Gastroenterology 09/20/23 Philip Dumont MD [address] [place] [address] 675925 Physician Ophthalmology 09/22/23 Meredith Carrera PA-C [address] [place] [address] 222155 Assigned Gastroenterology Provider 11/01/23 Neil Kent MD [address] [address] Dermatology 11/02/23 [place] [address] [place] [address] Neurological Surgery 12/26/23 documented as of this encounter
--- OUTSIDE RECORDS SUMMARY | 2024-01-07 18:17 | XMS_ITS | Encounter Summary ---
Author Organization [place] Address [address] [place] [address] Care Team Providers Care Weighmaster Lead Name Role Phone Lita Oseguera Unavailable Unavailable Marija Edgar CAFETERIA TABLE ATTENDANT LOCKSMITH Primary Care Provider Chanelle Gutierrez CAFETERIA TABLE ATTENDANT CNM Unavailab le Kyara De La Fuente RN Unavailable [phone] Marija Edgar APRN LOCKSMITH Unavailable Unavail able Mynor Broussard MD Unavailable [phone] Keisha Dotson MD Unavailable [phone] Galo Burrell MD Unavailable Unavailable Cristina Wood Unavailable Diana Desir [facility] Unavailable [phone] Rain Galaviz PA-C Unavailable Summer Lara MD Unavailable [phone] Summer Lara MD Unavailable Summer Lara MD Unavailable [phone] Tavia Wyatt MD Unavailable Unavailable Johnny Murillo MD Unavailable Erica Farrell APRN LOCKSMITH Unavailable Teresita Bean [facility] Unavailable [phone] Tavia Wyatt MD Unavailable Unavailable ThangKendrickDiana Stanislav [facility] Unavailable [phone] Rich Barrett MD Unavailable [phone] Neil Kent MD Unavailable Roney Story DPM Unavailable [phone] Erica Farrell CAFETERIA TABLE ATTENDANT LOCKSMITH Unavailable + Diana Desir [facility] Unavailable [phone] Jelena David OD Unavailable [phone] Galo Burrell MD Unavailable Unavailable Livan Sharif MD Unavailable + Livan Sharif MD Unavailable + Catherine Cm MD Unavailable + Valery Veronica PA-C Unavailable [phone] Catherine Cm MD Unavailable + Johnny Murillo MD Unavailable [phone] Brea Quinn CAFETERIA TABLE ATTENDANT LOCKSMITH Unavailable [phone] Brea Quinn CAFETERIA TABLE ATTENDANT LOCKSMITH Unavailable [phone] Jose Francisco Johnson MD Unavailable Livan Sharif MD Unavailable + Catherine Cm MD Unavailable + Sydnie Martinez RN Unavailable Unavailable Alfonso Renteria MD Unavailable [phone] Esha Grimm PA-C Primary Care Provider Cheng Todd PA-C Unavailable [phone] Radha Lomeli CAFETERIA TABLE ATTENDANT LOCKSMITH Unavailable [phone] Jelena David OD Unavailable [phone] Pao Joseph RN Unavailable Unavailable Wicho Grimmlincoln Medina PAUcheC Unavailable [phone] Valery VeronicaC Unavailable [phone] Rey Tay MD Unavailable Duane Rockyanne STEVENS Unavailable Philip Dumont MD Unavailable [phone] Meredith CarreraC Unavailable [phone] Neil Kent MD Unavailable Juan Pablo Emmanuel MD Unavailable [phone] Encounter Details Date Type Department Care Team (Late st Contact Info) Description 01/02/2021 MyC Medical Advice [address] [address] Kierra Eller Social History Tobacco [...] often do you attend chur ch or scientology services? More than 4 times per year [...] Date Recorded PHQ-2 Score 3 09/29/2020 [facility] [...] Office Visit [facility] Neurology [address], [address] [place] [phone] Genny Hyman PAUcheC [facility] Epilepsy Care 5775 [facility] 255 [place], [place] [address] [place] [address] [address] [facility] 300 [place], [place] 38[address] 02/06/2024 10:00 AM CDT Office Visit [facility] [address] [address] Neil Kent MD 500 [place], [place] [phone] 03/06/2024 3:00 PM CDT Office Visit [facility] Heart [facility] [address] [facility] [address] [place] [phone] Armani Radha Sia, CAFETERIA TABLE ATTENDANT LOCKSMITH [address] [place] [address] 03/07/2024 9:00 AM CDT Hospital Encounter [facility] [address] [place] [address] 5th [place] [phone] Rocky Zepeda DO 500 [place] [address] 03/07/2024 9:00 AM CDT - 03/07/2024 9:30 AM CDT Surgery [address] 5th [place] [phone] Rocky Zepeda DO 500 [place] [address] Esophagoscopy, gastroscopy, duodenoscopy (EGD), combined Scheduled Procedures Name Priority Associated Diagnoses Date/Ti wi ESOPHAGOGASTRODUODENOSCOPY Eosinophilic esophagitis Esophageal dysphagia 03/07/2024 9:00 AM CDT documented as of this encounter Visit Diagnoses Not on filedocumented in this encounter Additional Health Concerns Infection Onset Date Last Indicated Resolved Time Rule Out COVID-19 05/11/2021 05/11/2021 05/13/2021 10:18 AM CDT Rule Out COVID-19 07/13/2021 07/13/2021 07/14/2021 3:04 PM TELEPHONE INSTRUMENT SUPERVISOR Rule Out COVID-19 07/18/2021 07/18/2021 07/20/2021 1:56 PM TELEPHONE INSTRUMENT SUPERVISOR COVID-19 07/18/2021 07/18/2021 08/08/2021 11:3 9 PM TELEPHONE INSTRUMENT SUPERVISOR Rule Out COVID-19 12/18/2021 12/18/2021 12/19/2021 11:34 AM CDT Rule Out COVID-19 02/24/2022 02/24/2022 02/25/2022 1:08 PM CDT Rule Out COVID-19 04/26/2022 04/26/2022 04/26/2022 6:47 AM CDT Rule Out COVID-19 05/17/2022 05/17/2022 05/17/2022 10:20 PM TELEPHONE INSTRUMENT SUPERVISOR Rule Out COVID-19 06/09/2022 06/09/2022 06/09/2022 9:35 AM TELEPHONE INSTRUMENT SUPERVISOR COVID-19 06/09/2022 06/09/2022 06/30/2022 11:4 1 PM TELEPHONE INSTRUMENT SUPERVISOR Rule Out COVID-19 11/10/2022 11/10/2022 11/11/2022 12:17 PM CDT Rule Out COVID-19 03/07/2023 03/07/2023 03/07/2023 1:20 PM CDT Rule Out COVID-19 12/26/2023 12/26/2023 12/26/2023 9:50 AM CDT Assessment Noted Time PHQ-9 Depression Total Score: 6 09/30/19 3:25 PM CDT documented as of this encounter Care Teams Weighmaster Lead Relationship Specialty Start Date End Date Marija Edgar APRN LOCKSMITH PCP - General Nurse Practitioner 04/30/20 04/14/23 Esha Grimm PA-C [address] [place] [phone] PCP - General Family Medicine 05/04/23 Lita Oseguera Personal Advocate & Liaison (PAL) 02/28/20 03/27/23 Chanelle Mccann APRN CNM [address] [address] Assigned OBGYN Provider 05/02/2005/09 Kyara De La Fuente, RN Specialty Tile Decorator Neurology 06/04/20 03/05/21 Marija Edgar APRN LOCKSMITH Assigned PCP 06/08/20 04/29/23 Mynor Broussard MD [address] [place] [address] Assigned Surgical Provider 06/01/20 11/28/21 Keisha Dotson MD 909 [place] [address] Assigned Neuroscience Provider 06/04/20 04/01/23 Galo Burrell MD Assigned Heart and Vascular Provider 10/05/20 04/02/22 Cristina Wood Financial Resource Worker 02/09/21 02/09/21 Diana Desir [facility] [address] [place] [address] Pharmacist Pharmacist 04/17/21 Rain Galaviz PA-C [address] [facility] [address] [place] [address] Physician Abstract Manager Dermatology 04/28/21 Summer Lara MD [address] [place] [address] 823824 Assigned OBGYN Provider 05/10/2105/23 Summer Lara MD [address] [place] [address] Assigned OBGYN Provider 05/31/21 2 Summer Lara MD [address] [address] Assigned OBGYN Provider 05/24/2105/30 Tavia Wyatt MD [address] [place] [address] Dermatology 07/14/21 Johnny Murillo MD [address] [place] [address] Assigned Musculoskeletal Provider 08/30/21 03/17/22 Erica Farrell APRN LOCKSMITH [address] [facility] [address] [place] [address] Nurse Practitioner Cardiovascular Disease 09/09/21 [facility] [address] [place] [address] Pharmacist Pharmacist 09/24/21 09/29/21 Tavia Wyatt MD Assigned Surgical Provider 11/29/21 05/07/22 [facility] [address] [place] [address] Assigned MTM Pharmacist 01/02/22 Rich Barrett MD [address] [phone] Physician Ophthalmology 01/21/22 Neil Kent MD [address] [place] [address] 407425 Dermatology 02/24/22 [place] [address] [place] [address] Assigned Musculoskeletal Provider 03/20/22 08/13/22 Erica Farrell APRN LOCKSMITH 1700 [place] [address] Assigned Heart and Vascular Provider 04/03/22 04/16/22 Diana Desir, [facility] 3033 [place], [place] [address]186 Assigned MTM Pharmacist 04/07/22 Jelena David OD [address] [facility] [place] [address] Assigned Surgical Provider 05/08/22 10/08/22 Galo Burrell MD Assigned Heart and Vascular Provider 04/17/22 06/11/22 Livan Sharif MD [address] [place] [address] Cardiovascular Disease 05/14/22 Livan Sharif MD [address] [place] [address] Assigned Heart and Vascular Provider 06/12/22 07/23/22 Catherine Cm MD [address] [place] [address] Cardiovascular Disease 07/21/22 Valery Veronica, PAUcheC 909 [place] [address] Physician Abstract Manager Dermatology 07/21/22 Catherine Cm MD [address] [facility] [address] [place] [address] Assigned Heart and Vascular Provider 07/24/22 11/05/22 Johnny Murillo MD [facility] [address] [phone] Assigned Musculoskeletal Provider 08/14/22 10/08/22 Brea Quinn APRN LOCKSMITH [address] [place] [address] 455[address] Nurse Practitioner Dermatology 09/21/22 Brea Quinn APRN LOCKSMITH [address] [place] [address] [place] 623672 Assigned Surgical Provider 10/09/22 [place] [address] [address] Assigned Musculoskeletal Provider 10/09/22 Livan Sharif MD [address], [facility] [address] [place] [address] Assigned Heart and Vascular Provider 11/06/22 11/12/22 Catherine Cm MD [address] [facility] [place] [address] Assigned Heart and Vascular Provider 11/13/22 05/27/23 Sydnie Martinez RN Personal Advocate & Liaison (PAL) Family Medicine 03/28/23 07/31/23 Alfonso Renteria MD 5775 [facility] [address] [place] [address] Assigned Neuroscience Provider 04/02/23 Cheng Todd PA-C [address] [place] [address] Assigned PCP 04/30/23 07/15/23 Radha Lomeli APRN LOCKSMITH [address] [facility] [address] [place] [address] Assigned Heart and Vascular Provider 05/28/23 Jelena David OD [address] [facility] [address] Ophthalmology 06/15/23 Pao Joseph, VJ Personal Advocate & Liaison (PAL) Nurse 08/01/23 11/07/23 Esha Grimm PA-C [address] [place] [address] Assigned PCP 07/16/23 Valery Veronica PA-C [address] [place] [address] Physician Abstract Manager Dermatology 09/19/23 Rey Tay MD 909 [place] [address] Gastroenterology 09/20/23 Rocky Zepeda DO [address] [place] [address] Physician Gastroenterology 09/20/23 Philip Dumont MD [address] [place] [address] Physician Ophthalmology 09/22/23 Meredith Carrera PA-C [address] [place] [address] Assigned Gastroenterology Provider 11/01/23 Neil Kent MD [address] [place] [address] Dermatology 11/02/23 [place] [address] 158[address] Neurological Surgery 12/26/23 documented as of this encounter
--- OUTSIDE RECORDS SUMMARY | 2024-01-07 18:17 | XMS_ITS | Encounter Summary ---
Author Organization [place] Address [address] [place] [address] Care Team Providers Care Straightener Name Role Phone Lita Oseguera Unavailable Unavailable Mraija Edgar APRN FINANCIAL DEVELOPER Primary Care Provider Chanelle Gutierrez APRN CN Unavailab le Marija Edgar APRN FINANCIAL DEVELOPER Unavailable Unavail able Mynor Broussard MD Unavailable [phone] Keisha Dotson MD Unavailable [phone] Galo Burrell MD Unavailable Unavailable Diana Desir [facility] Unavailable Rain Galaviz PA-C Unavailable [phone] Summer Lara MD Unavailable [phone] Summer Lara MD Unavailable [phone] Summer Lara MD Unavailable [phone] Tavia Wyatt MD Unavailable Unavailable Johnny Murillo MD Unavailable Erica Farrell APRN FINANCIAL DEVELOPER Unavailable Teresita Bean [facility] Unavailable [phone] Tavia Wyatt MD Unavailable Unavailable Diana Desir [facility] Unavailable Rich Barrett MD Unavailable [phone] Neil Kent MD Unavailable Roney Story DPM Unavailable Erica Farrell PRICING ASSOCIATE FINANCIAL DEVELOPER Unavailable ThangDiana [facility] Unavailable Jelena David OD Unavailable Galo Burrell MD Unavailable Unavailable HoLivan MD Unavailable Livan Sharif MD Unavailable Catherine Cm MD Unavailable + Valery Veronica PA-C Unavailable [phone] Catherine Cm MD Unavailable + Johnny Murillo MD Unavailable [phone] Brea Quinn PRICING ASSOCIATE FINANCIAL DEVELOPER Unavailable [phone] Brea Quinn PRICING ASSOCIATE FINANCIAL DEVELOPER Unavailable [phone] Jose Francisco Johnson MD Unavailable Livan Sharif MD Unavailable IsCatherine hobbs MD Unavailable + Sydnie Martinez RN Unavailable Unavailable Alfonso Renteria MD Unavailable Esha Grimm-C Primary Care Provider Cheng Todd PA-C Unavailable Radha Lomeli PRICING ASSOCIATE FINANCIAL DEVELOPER Unavailable Jelena David OD Unavailable Pao Joseph RN Unavailable Unavailable Esha Grimm-C Unavailable [phone] Valery Veronica PA-C Unavailable Rey Tay MD Unavailable Rocky Zepeda DO Unavailable Philip Dumont MD Unavailable [phone] Meredith Carrera PA-C Unavailable [phone] Neil Kent MD Unavailable Juan Pablo Emmanuel MD Unavailable [phone] Encounter Details Date Type Department Care Team (Late st Contact Info) Description 04/17/2021 [facility] Medical Advice [address] [address] Diana Desir, [facility] 3033 [place] [address] Social History Tobacco Use Types Packs/Day Years [...] Answer Date Recorded PHQ-2 Score 0 04/02/2021 [facility] [...] slept in a mcc (including now)? No 08/11/2020 [place] Depression Scale Answer Date Recorded [place] [...] Visit [facility] Neurology [address], [address] [place] [address] Genny Hyman PA-C [facility] 5775 [facility] 255 [place], [place] [phone] [place] [address] [place], [place] [address] 02/06/2024 10:00 AM CDT Office Visit [facility] [address] [phone] Neil Kent MD 500 [place] [address] 03/06/2024 3:00 PM CDT Office Visit [facility] [address] [place] [address] [place] [address] Radha Lomeli, PRICING ASSOCIATE FINANCIAL DEVELOPER [address] [place] [address] 03/07/2024 9:00 AM CDT Hospital Encounter [address] [phone] Rocky Zepeda DO 500 [place] [address] 03/07/2024 9:00 AM CDT - 03/07/2024 9:30 AM CDT Surgery [address] [phone] oRcky Zepeda DO 500 [place] [address] Esophagoscopy, gastroscopy, duodenoscopy (EGD), combined Scheduled Procedures Name Priority Associated Diagnoses Date/Ti nc ESOPHAGOGASTRODUODENOSCOPY Eosinophilic esophagitis Esophageal dysphagia 03/07/2024 9:00 AM CDT documented as of this encounter Visit Diagnoses Not on filedocumented in this encounter Additional Health Concerns Infection Onset Date Last Indicated Resolved Time Rule Out COVID-19 05/11/2021 05/11/2021 05/13/2021 10:18 AM CDT Rule Out COVID-19 07/13/2021 07/13/2021 07/14/2021 3:04 PM TALENT ACQUISITION CONSULTANT Rule Out COVID-19 07/18/2021 07/18/2021 07/20/2021 1:56 PM TALENT ACQUISITION CONSULTANT COVID-19 07/18/2021 07/18/2021 08/08/2021 11:3 9 PM TALENT ACQUISITION CONSULTANT Rule Out COVID-19 12/18/2021 12/18/2021 12/19/2021 11:34 AM CDT Rule Out COVID-19 02/24/2022 02/24/2022 02/25/2022 1:08 PM CDT Rule Out COVID-19 04/26/2022 04/26/2022 04/26/2022 6:47 AM CDT Rule Out COVID-19 05/17/2022 05/17/2022 05/17/2022 10:20 PM TALENT ACQUISITION CONSULTANT Rule Out COVID-19 06/09/2022 06/09/2022 06/09/2022 9:35 AM TALENT ACQUISITION CONSULTANT COVID-19 06/09/2022 06/09/2022 06/30/2022 11:4 1 PM TALENT ACQUISITION CONSULTANT Rule Out COVID-19 11/10/2022 11/10/2022 11/11/2022 12:17 PM CDT Rule Out COVID-19 03/07/2023 03/07/2023 03/07/2023 1:20 PM CDT Rule Out COVID-19 12/26/2023 12/26/2023 12/26/2023 9:50 AM CDT Assessment Noted Time PHQ-9 Depression Total Score: 2 04/02/20 10:19 AM CDT documented as of this encounter Care Teams Straightener Relationship Specialty Start Date End Date Marija Edgar APRN FINANCIAL DEVELOPER PCP - General Nurse Practitioner 04/30/20 04/14/23 Esha Grimm PA-C [address] [place] [phone] PCP - General Family Medicine 05/04/23 Lita Oseguera Personal Advocate & Liaison (PAL) 02/28/20 03/27/23 Chanelle Mccann APRN CNM [address] [address] Assigned OBGYN Provider 05/02/2005/09 Marija Edgar APRN FINANCIAL DEVELOPER Assigned PCP 06/08/20 04/29/23 Mynor Broussard MD [address] [address] Assigned Surgical Provider 06/01/20 11/28/21 Keisha Dotson MD 909 [place] [address] Assigned Neuroscience Provider 06/04/20 04/01/23 Galo Burrell MD Assigned Heart and Vascular Provider 10/05/20 04/02/22 Diana [facility] [address] [place] [address] Pharmacist Pharmacist 04/17/21 Rain Galaviz PA-C [address] [place] [address] [address] [place] [address] Physician Paid Search Marketing Analyst Dermatology 04/28/21 Summer Lara MD [address] [place] [address] 687814 Assigned OBGYN Provider 05/10/2105/23 Summer Lara MD [address] [place] [address] 901544 Assigned OBGYN Provider 05/31/21 2 Summer Lara MD [address] [place] [address] Assigned OBGYN Provider 05/24/2105/30 Tavia Wyatt MD [address] [place] [address] Dermatology 07/14/21 Johnny Murillo MD [address] [place] [address] Assigned Musculoskeletal Provider 08/30/21 03/17/22 Erica Farrell APRN FINANCIAL DEVELOPER [address] [place] [address] Nurse Practitioner Cardiovascular Disease 09/09/21 Teresita Bean, [facility] [address] [facility] [address] [place] [phone] Pharmacist Pharmacist 09/24/21 09/29/21 Tavia Wyatt MD Assigned Surgical Provider 11/29/21 05/07/22 Diana Desir, [facility] 3033 [place] [address] Assigned MTM Pharmacist 01/02/22 Rich Barrett MD 516 [facility] 9A [place], [place] [address] Physician Ophthalmology 01/21/22 Neil Kent MD 500 [place] [address] Dermatology 02/24/22 Roney Story DPM [address] [facility] 300 [place] [address] Assigned Musculoskeletal Provider 03/20/22 08/13/22 Erica Farrell APRN FINANCIAL DEVELOPER 1700 [place] [address] Assigned Heart and Vascular Provider 04/03/22 04/16/22 Diana [facility] 3033 [place] [address] Assigned MTM Pharmacist 04/07/22 Jelena David OD [address] [facility] [place] [address] Assigned Surgical Provider 05/08/22 10/08/22 Galo Burrell MD Assigned Heart and Vascular Provider 04/17/22 06/11/22 Livan Sharif MD [address] [facility] [address] [place] [address] Cardiovascular Disease 05/14/22 Livan Sharif MD [address] [facility] [address] [place] [address] Assigned Heart and Vascular Provider 06/12/22 07/23/22 Catherine Cm MD [address] [place] [address]35 Cardiovascular Disease 07/21/22 Valery Veronica, PAUcheC 909 [place], [place] 6108[address] Physician Paid Search Marketing Analyst Dermatology 07/21/22 Catherine Cm MD [address] [place] [address] [place] [address] Assigned Heart and Vascular Provider 07/24/22 11/05/22 Johnny Murillo MD [address] [place] [address] Assigned Musculoskeletal Provider 08/14/22 10/08/22 Brea Quinn APRN FINANCIAL DEVELOPER [address] [place] [address] 765175 Nurse Practitioner Dermatology 09/21/22 Brea Quinn APRN FINANCIAL DEVELOPER [address] [place] [address] Assigned Surgical Provider 10/09/22 [place] [address] [address] Assigned Musculoskeletal Provider 10/09/22 Livan Sharif MD [address] [place] [address] [place] [address] Assigned Heart and Vascular Provider 11/06/22 11/12/22 Catherine Cm MD [address] [place] [address] [place] [address] Assigned Heart and Vascular Provider 11/13/22 05/27/23 Sydnie Martinez RN Personal Advocate & Liaison (PAL) Family Medicine 03/28/23 07/31/23 Alfonso Renteria MD [address] [facility] [address] 200 [place] [address] Assigned Neuroscience Provider 04/02/23 Cheng Todd PA-C [address] [place] [address] [phone] Assigned PCP 04/30/23 07/15/23 Radha Lomeli APRN FINANCIAL DEVELOPER 6405 [facility] [address] [place], [place] 019165 Assigned Heart and Vascular Provider 05/28/23 Jelena David OD [address] [facility] [address] [place] [id number] Ophthalmology 06/15/23 Pao Joseph, VJ Personal Advocate & Liaison (PAL) Nurse 08/01/23 11/07/23 Esha Grimm PA-C [address] [place] [address] Assigned PCP 07/16/23 Valery Veronica PA-C [address] [place] [address] [phone] Physician Paid Search Marketing Analyst Dermatology 09/19/23 Rey Tay MD [address] [place] [address] 106235 Gastroenterology 09/20/23 Rocky Zepeda DO [address] [place] [address] [phone] Physician Gastroenterology 09/20/23 Philip Dumont MD 516 [place], [place] 856405 Physician Ophthalmology 09/22/23 Meredith Carrera PA-C [address] [place], [place] 9338[address] Assigned Gastroenterology Provider 11/01/23 Neil Kent MD [address] [address] Dermatology 11/02/23 [place] [address] [place] [address] Neurological Surgery 12/26/23 documented as of this encounter
--- OUTSIDE RECORDS SUMMARY | 2024-01-07 18:17 | XMS_ITS | Encounter Summary ---
Author Organization [facility] Address [address] [place] [address] Care Team Providers Care Gun Mechanic Name Role Phone Lita Oseguera Unavailable Unavailable Marija Edgar APRN BORE MILL OPERATOR FOR PLASTIC Primary Care Provider Chanelle Gutierrez APRN CN Unavailab le Marija Edgar APRN BORE MILL OPERATOR FOR PLASTIC Unavailable Unavail able Mynor Broussard MD Unavailable [phone] Keisha Dotson MD Unavailable Galo Burrell MD Unavailable Unavailable Diana Desir [facility] Unavailable Rain Galaviz PA-C Unavailable [phone] Summer Lara MD Unavailable [phone] Summer Lara MD Unavailable [phone] Summer Lara MD Unavailable [phone] Tavia Wyatt MD Unavailable Unavailable Johnny Murillo MD Unavailable [phone] Erica Farrell APRN BORE MILL OPERATOR FOR PLASTIC Unavailable Teresita Bean [facility] Unavailable Tavia Wyatt MD Unavailable Unavailable Diana Desir [facility] Unavailable Rich Barrett MD Unavailable [phone] Neil Kent MD Unavailable Roney Story DPM Unavailable Erica Farrell POWDER CORE TESTER BORE MILL OPERATOR FOR PLASTIC Unavailable ThangDiana [facility] Unavailable Jelena David OD Unavailable Galo Burrell MD Unavailable Unavailable HoLivan MD Unavailable Livan Sharif MD Unavailable Catherine Cm MD Unavailable + Valery Veronica PA-C Unavailable [phone] Catherine Cm MD Unavailable + Johnny Murillo MD Unavailable [phone] Brea Quinn POWDER CORE TESTER BORE MILL OPERATOR FOR PLASTIC Unavailable [phone] Brea Quinn POWDER CORE TESTER BORE MILL OPERATOR FOR PLASTIC Unavailable [phone] Jose Francisco Johnson MD Unavailable Livan Sharif MD Unavailable IsCatherine hobbs MD Unavailable + Sydnie Martinez RN Unavailable Unavailable Alfonso Renteria MD Unavailable Esha Grimm-C Primary Care Provider Cheng Todd PA-C Unavailable Radha Lomeli POWDER CORE TESTER BORE MILL OPERATOR FOR PLASTIC Unavailable Jelena David OD Unavailable Pao Joseph RN Unavailable Unavailable Esha Grimm-C Unavailable [phone] Valery Veronica PA-C Unavailable Rey Tay MD Unavailable Rocky Zepeda DO Unavailable Philip Dumont MD Unavailable [phone] Meredith Carrera PA-C Unavailable [phone] Neil Kent MD Unavailable Juan Pablo Emmanuel MD Unavailable [phone] Encounter Details Date Type Department Care Team (Late st Contact Info) Description 04/28/2021 MyC Medical Advice [address] [address] Marija Edgar APRN CNP Social [...] 08/07/2020 How often do you attend [facility] or worship services? More than 4 times per year [...] 04/02/2021 [facility] of Occupat ional [facility] - Occupational Stress Questionnaire Answer Date [...] in a half-way (including now)? No 08/11/2020 [place] Depression Scale Answer Date Recorded [place] Depression Score 5 01/14/2021 Last EPDS Self [...] Office Visit [facility] Neurology [address] [place] [phone] Genny Hyman PA-C [facility] Epilepsy Care 5775 [facility] 255 [place], [place] [address] [place] [address] [facility] 300 [place], [place] [address] 02/06/2024 10:00 AM CDT Office Visit [facility] [address] [address] Neil Kent MD 500 [place] [address] 03/06/2024 3:00 PM CDT Office Visit [facility] [place] [address] [facility] [address] [place] [phone] Armani Radha Sia, POWDER CORE TESTER BORE MILL OPERATOR FOR PLASTIC [address] [place] [address] 03/07/2024 9:00 AM CDT Hospital Encounter [address] 5th [place] [phone] Rocky Zepeda DO 500 [place], [place] [address] 03/07/2024 9:00 AM CDT - 03/07/2024 9:30 AM CDT Surgery [address] [phone] Rocky Zepeda DO 500 [place], [place] [address] Esophagoscopy, gastroscopy, duodenoscopy (EGD), combined Scheduled Procedures Name Priority Associated Diagnoses Date/Ti vt ESOPHAGOGASTRODUODENOSCOPY Eosinophilic esophagitis Esophageal dysphagia 03/07/2024 9:00 AM CDT documented as of this encounter Visit Diagnoses Not on filedocumented in this encounter Additional Health Concerns Infection Onset Date Last Indicated Resolved Time Rule Out COVID-19 05/11/2021 05/11/2021 05/13/2021 10:18 AM CDT Rule Out COVID-19 07/13/2021 07/13/2021 07/14/2021 3:04 PM INTERFACE ENGINEER Rule Out COVID-19 07/18/2021 07/18/2021 07/20/2021 1:56 PM INTERFACE ENGINEER COVID-19 07/18/2021 07/18/2021 08/08/2021 11:3 9 PM INTERFACE ENGINEER Rule Out COVID-19 12/18/2021 12/18/2021 12/19/2021 11:34 AM CDT Rule Out COVID-19 02/24/2022 02/24/2022 02/25/2022 1:08 PM CDT Rule Out COVID-19 04/26/2022 04/26/2022 04/26/2022 6:47 AM CDT Rule Out COVID-19 05/17/2022 05/17/2022 05/17/2022 10:20 PM INTERFACE ENGINEER Rule Out COVID-19 06/09/2022 06/09/2022 06/09/2022 9:35 AM INTERFACE ENGINEER COVID-19 06/09/2022 06/09/2022 06/30/2022 11:4 1 PM INTERFACE ENGINEER Rule Out COVID-19 11/10/2022 11/10/2022 11/11/2022 12:17 PM CDT Rule Out COVID-19 03/07/2023 03/07/2023 03/07/2023 1:20 PM CDT Rule Out COVID-19 12/26/2023 12/26/2023 12/26/2023 9:50 AM CDT Assessment Noted Time PHQ-9 Depression Total Score: 2 04/02/20 10:19 AM CDT documented as of this encounter Care Teams Gun Mechanic Relationship Specialty Start Date End Date Marija Edgar APRN BORE MILL OPERATOR FOR PLASTIC PCP - General Nurse Practitioner 04/30/20 04/14/23 Esha Grimm PA-C [address] [place] [phone] PCP - General Family Medicine 05/04/23 Lita Oseguera Personal Advocate & Liaison (PAL) 02/28/20 03/27/23 Chanelle Mccann APRN CNM [address] [address] Assigned OBGYN Provider 05/02/2005/09 Marija Edgar APRN BORE MILL OPERATOR FOR PLASTIC Assigned PCP 06/08/20 04/29/23 Mynor Broussard MD [address] [facility] [place] [address] Assigned Surgical Provider 06/01/20 11/28/21 Keisha Dotson MD 909 [place] [address] Assigned Neuroscience Provider 06/04/20 04/01/23 Galo Burrell MD Assigned Heart and Vascular Provider 10/05/20 04/02/22 Diana Desir, [facility] [address] [place] [address] Pharmacist Pharmacist 04/17/21 Rain Galaviz PA-C [address] [place] [address] DR RA[address] [facility] [place] [address] Physician Yoker Machine Operator Dermatology 04/28/21 Summer Lara MD [address] [place] [address] Assigned OBGYN Provider 05/10/2105/23 Summer Lara MD [address] [place] [address] Assigned OBGYN Provider 05/31/21 2 Summer Lara MD [address] [place] [address] Assigned OBGYN Provider 05/24/2105/30 Tavia Wyatt MD [address] [place] [address] Dermatology 07/14/21 Johnny Murillo MD [address] [place] [address] Assigned Musculoskeletal Provider 08/30/21 03/17/22 Erica Farrell APRN BORE MILL OPERATOR FOR PLASTIC [address] [place] [address] Nurse Practitioner Cardiovascular Disease 09/09/21 Teresita Bean, [facility] [address] [facility] [address] [place], [place] [phone] Pharmacist Pharmacist 09/24/21 09/29/21 Tavia Wyatt MD Assigned Surgical Provider 11/29/21 05/07/22 [facility] [address] [place] [address] Assigned MTM Pharmacist 01/02/22 Rich Barrett MD 516 [facility] 9A [place], [place] [address] Physician Ophthalmology 01/21/22 Neil Kent MD 500 [place], [place] [address] Dermatology 02/24/22 Roney Story DPM [address] [facility] 300 [place], [place] [address] Assigned Musculoskeletal Provider 03/20/22 08/13/22 Erica Farrell APRN BORE MILL OPERATOR FOR PLASTIC 1700 [place] [address] Assigned Heart and Vascular Provider 04/03/22 04/16/22 Diana Desir, [facility] [address] [facility] [address] [place], [place] [address] Assigned MTM Pharmacist 04/07/22 [place] David [place] [address] [facility] [place] [address] Assigned Surgical Provider 05/08/22 10/08/22 Galo Burrell MD Assigned Heart and Vascular Provider 04/17/22 06/11/22 Livan Sharif MD [address] [place] [address] Cardiovascular Disease 05/14/22 Livan Sharif MD [address] [facility] [place] [address] Assigned Heart and Vascular Provider 06/12/22 07/23/22 Catherine Cm MD [address] [place], [place] [address] Cardiovascular Disease 07/21/22 Valery Veronica PAUcheC 909 [place] [address] Physician Yoker Machine Operator Dermatology 07/21/22 Catherine Cm MD [address] [facility] [address] [place] [address] Assigned Heart and Vascular Provider 07/24/22 11/05/22 Johnny Murillo MD [address] [address] Assigned Musculoskeletal Provider 08/14/22 10/08/22 Brea Quinn APRN BORE MILL OPERATOR FOR PLASTIC 500 [place], [place] [address] Nurse Practitioner Dermatology 09/21/22 Brea Quinn APRN BORE MILL OPERATOR FOR PLASTIC 6401 [facility] [place] [address] Assigned Surgical Provider 10/09/22 [place] [address] [facility] 300 [place], [place] [address] Assigned Musculoskeletal Provider 10/09/22 Livan Sharif MD [address], [facility] [address] [place] [address] Assigned Heart and Vascular Provider 11/06/22 11/12/22 Catherine Cm MD [address] [facility] [address] [place] [address] Assigned Heart and Vascular Provider 11/13/22 05/27/23 Sydnie Martinez RN Personal Advocate & Liaison (PAL) Family Medicine 03/28/23 07/31/23 Alfonso Renteria MD 5775 [facility] 200 [place] [address] Assigned Neuroscience Provider 04/02/23 Cheng Todd PA-C [address] [place] [address] Assigned PCP 04/30/23 07/15/23 Radha Lomeli APRN BORE MILL OPERATOR FOR PLASTIC [address] [facility] [address] [place] [address] Assigned Heart and Vascular Provider 05/28/23 [place] OD [address] [facility] [place] [address] Ophthalmology 06/15/23 Pao Joseph, VJ Personal Advocate & Liaison (PAL) Nurse 08/01/23 11/07/23 Esha Grimm PA-C [address] [place] [address] Assigned PCP 07/16/23 Valery Veronica PA-C [address] [place] [address] Physician Yoker Machine Operator Dermatology 09/19/23 Rey Tay MD [address] [place] [address] Gastroenterology 09/20/23 Rocky Zepeda DO [address] [place] [address] Physician Gastroenterology 09/20/23 Philip Dumont MD [address] [place] [address] [place] [address] Physician Ophthalmology 09/22/23 Meredith Carrera PA-C 909 [place] [address] Assigned Gastroenterology Provider 11/01/23 Neil Kent MD [address] [address] Dermatology 11/02/23 [place] [address] [place] [address] Neurological Surgery 12/26/23 documented as of this encounter
--- OUTSIDE RECORDS SUMMARY | 2024-01-07 18:18 | XMS_ITS | Encounter Summary ---
Author Organization [facility] Address [address] [place] [address] Care Team Providers Care Golf Stud Riveter Name Role Phone Lita Oseguera Unavailable Unavailable Marija Edgar APRN CHANGE ADVISOR Primary Care Provider Chanelle Gutierrez APRN CNM Unavailab le Kyara De La Fuente RN Unavailable [phone] Marija Edgar APRN CHANGE ADVISOR Unavailable Unavail able Mynor Broussard MD Unavailable [phone] Keisha Dotson MD Unavailable Mary Mejia Unavailable Unavailable Stacey Briones COOK HELPER DESSERT Unavailable Lesley Moody CHW Unavailable [phone] Mary Mejia Unavailable Unavailable Lita Oseguera Unavailable Unavailable Galo Burrell MD Unavailable Unavailable Cristina Wood Unavailable Lesley Moody CHW Unavailable [phone] Meredith Bedoya Unavailable Unavailable Cristina Wood Unavailable Diana Desir [facility] Unavailable [phone] Rain Galaviz PA-C Unavailable Summer Lara MD Unavailable [phone] Summer Lara MD Unavailable [phone] Summer Lara MD Unavailable + [phone] Tavia Wyatt MD Unavailable Unavailable SemJohnny mckeon MD Unavailable +1- Erica Farrell MANAGER WILLOW CHANGE ADVISOR Unavailable + BeanTeresita RPH Unavailable Tavia Wyatt MD Unavailable Unavailable Diana Desir H Unavailable [phone] Rich Barrett MD Unavailable [phone] Neil Kent MD Unavailable Roney Story DPM Unavailable [phone] Erica Farrell MANAGER WILLOW CHANGE ADVISOR Unavailable + Diana Desir RPH Unavailable [phone] Jelena David OD Unavailable [phone] Galo Burrell MD Unavailable Unavailable Livan Sharif MD Unavailable + Livan Sharif MD Unavailable + Catherine Cm MD Unavailable + Valery Veronica PA-C Unavailable [phone] Catherine Cm MD Unavailable + Johnny Murillo MD Unavailable +1- Brea Quinn MANAGER WILLOW CHANGE ADVISOR Unavailable [phone] Brea Quinn MANAGER WILLOW CHANGE ADVISOR Unavailable [phone] Jose Francisco Johnson MD Unavailable Livan Sharif MD Unavailable + Catherine Cm MD Unavailable + Sydnie Martinez RN Unavailable Unavailable Alfonso Renteria MD Unavailable [phone] Esha Grimm PA-C Primary Care Provider Cheng Todd PA-C Unavailable Radha Lomeli APRN CHANGE ADVISOR Unavailable Jelena David OD Unavailable [phone] Pao Joseph RN Unavailable Unavailable Esha GrimmC Unavailable [phone] Valery Veronica PA-C Unavailable Rey Tay MD Unavailable Rocky Zepeda DO Unavailable Philip Dumont MD Unavailable [phone] Meredith Carrera PA-C Unavailable [phone] Neil Kent MD Unavailable Juan Pablo Emmanuel MD Unavailable [phone] Encounter Details Date Type Department Care Team (Late st Contact Info) Description 08/07/2020 [facility] Care Coordination [address] [place] [address] Lesley Moody, [facility] Social History Tobacco Use Types Packs/Day [...] Answer Date Recorded PHQ-2 Score 3 06/24/2020 [facility] [place] Occupat ional Health - Occupational Stress [...] in a skilled nursing (including now)? No 08/11/2020 Education Answer Date [...] COVID-19? No / Unsure 08/06/2020 2:03 PM PLANER FEEDER documented as of this encounter Plan of Treatment Upcoming Encounters Date Type Department Care Team (Late st Contact Info) Description 01/09/2024 10:15 AM CDT Office Visit [facility] Neurology [address], [address] [place] [address] Genny Hyman PA-C [facility] Epilepsy [facility] [address] [place] [address] [address] [place], [place] [phone] [place] [address] [place] [address] [place] [address] 02/06/2024 10:00 AM CDT Office Visit [facility] [address] [phone] Neil Kent MD 500 [place] [address] 03/06/2024 3:00 PM CDT Office Visit [facility] [address] [facility] [address] [place] [phone] Radha Lomeli APRN CHANGE ADVISOR [address] [place], [place] [address] 03/07/2024 9:00 AM CDT Hospital Encounter [facility] [address] [place] [phone] Rocky Zepeda DO 500 [place], [place] [address] 03/07/2024 9:00 AM CDT - 03/07/2024 9:30 AM CDT Surgery [address] [phone] Rocky Zepeda DO 500 [place], [place] [address] Esophagoscopy, gastroscopy, duodenoscopy (EGD), combined Scheduled Procedures Name Priority Associated Diagnoses Date/Ti pa ESOPHAGOGASTRODUODENOSCOPY Eosinophilic esophagitis Esophageal dysphagia 03/07/2024 9:00 AM CDT documented as of this encounter Visit Diagnoses Not on filedocumented in this encounter Additional Health Concerns Infection Onset Date Last Indicated Resolved Time Rule Out COVID-19 08/30/2020 08/30/2020 08/30/2020 5:05 PM PLANER FEEDER Rule Out COVID-19 09/24/2020 09/24/2020 09/24/2020 9:24 AM CDT Rule Out COVID-19 11/05/2020 11/05/2020 11/06/2020 1:09 PM CDT Rule Out COVID-19 05/11/2021 05/11/2021 05/13/2021 10:18 AM CDT Rule Out COVID-19 07/13/2021 07/13/2021 07/14/2021 3:04 PM PLANER FEEDER Rule Out COVID-19 07/18/2021 07/18/2021 07/20/2021 1:56 PM PLANER FEEDER COVID-19 07/18/2021 07/18/2021 08/08/2021 11:3 9 PM PLANER FEEDER Rule Out COVID-19 12/18/2021 12/18/2021 12/19/2021 11:34 AM CDT Rule Out COVID-19 02/24/2022 02/24/2022 02/25/2022 1:08 PM CDT Rule Out COVID-19 04/26/2022 04/26/2022 04/26/2022 6:47 AM CDT Rule Out COVID-19 05/17/2022 05/17/2022 05/17/2022 10:20 PM PLANER FEEDER Rule Out COVID-19 06/09/2022 06/09/2022 06/09/2022 9:35 AM PLANER FEEDER COVID-19 06/09/2022 06/09/2022 06/30/2022 11:4 1 PM PLANER FEEDER Rule Out COVID-19 11/10/2022 11/10/2022 11/11/2022 12:17 PM CDT Rule Out COVID-19 03/07/2023 03/07/2023 03/07/2023 1:20 PM CDT Rule Out COVID-19 12/26/2023 12/26/2023 12/26/2023 9:50 AM CDT Assessment Noted Time PHQ-9 Depression Total Score: 9 06/25/20 20 7:04 AM PLANER FEEDER documented as of this encounter Care Teams Golf Stud Riveter Relationship Specialty Start Date End Date Marija Edgar APRN CHANGE ADVISOR PCP - General Nurse Practitioner 04/30/20 04/14/23 Esha Grimm PA-C [address] [place] [phone] PCP - General Family Medicine 05/04/23 Lita Oseguera Personal Advocate & Liaison (PAL) 02/28/20 03/27/23 Chanelle Mccann APRN CNM [address] [facility] 200 [place] [address] Assigned OBGYN Provider 05/02/2005/09 Kyara De La Fuente, RN Specialty Fabric Worker Foreman Neurology 06/04/20 03/05/21 Marija Edgar APRN CHANGE ADVISOR Assigned PCP 06/08/20 04/29/23 Mynor Broussard MD 6363 [facility] 500 [place] [address] Assigned Surgical Provider 06/01/20 11/28/21 Keisha Dotson MD 909 [place], [place] [address] Assigned Neuroscience Provider 06/04/20 04/01/23 Mary Mejia Financial Resource Worker 08/07/20 08/21/20 Stacey Briones, COOK HELPER DESSERT Lead Fabric Worker Foreman Primary Care - CC 08/11/2012/30 Lesley Moody, W Community Health Worker 08/11/2010/01 Mary Mejia Financial Resource Worker 09/02/20 10/06/20 Lita Oseguera Personal Advocate & Liaison (PAL) Family Medicine 09/10/20 09/21/20 Galo Burrell MD Assigned Heart and Vascular Provider 10/05/20 04/02/22 Cristina Wood Financial Resource Worker 10/07/20 10/14/20 Lesley Moody, [facility] Community Health Worker 10/23/2012/30 Meredith Bedoya Financial Resource Worker 10/23/20 11/23/20 Cristina Wood Financial Resource Worker 02/09/21 02/09/21 Diana Desir, [facility] 3033 [place], [place] [phone] Pharmacist Pharmacist 04/17/21 Rain Galaviz PA-C [address] [place] [address] [address] [place], [place] [phone] Physician Operations Dispatcher Dermatology 04/28/21 Summer Lara MD [address] [place] [address] 138054 Assigned OBGYN Provider 05/10/2105/23 Summer Lara MD [address] [place] [address] 524524 Assigned OBGYN Provider 05/31/21 Summer Lara MD [address] [place] [address] Assigned OBGYN Provider 05/24/2105/30 Tavia Wyatt MD [address] [place] [address] Dermatology 07/14/21 Johnny Murillo MD [address] [place] [address] Assigned Musculoskeletal Provider 08/30/21 03/17/22 Erica Frarell APRN CHANGE ADVISOR [address] [place] [address] Nurse Practitioner Cardiovascular Disease 09/09/21 Teresita Bean, [facility] [address] [place], [place] [phone] Pharmacist Pharmacist 09/24/21 09/29/21 Tavia Wyatt MD Assigned Surgical Provider 11/29/21 05/07/22 [facility] 3033 [place] [address] Assigned MTM Pharmacist 01/02/22 Rich Barrett MD 516 [facility] 9A [place], [place] [address] Physician Ophthalmology 01/21/22 Neil Kent MD 500 [place], [place] 7[address] Dermatology 02/24/22 Roney Story DPM [address] [facility] [address] [place], [place] [address] Assigned Musculoskeletal Provider 03/20/22 08/13/22 Erica Farrell APRN CHANGE ADVISOR 1700 [place] [address] Assigned Heart and Vascular Provider 04/03/22 04/16/22 Diana Desir, [facility] [address] [place], [place] 7536[address] Assigned MTM Pharmacist 04/07/22 Jelena David OD [address] [facility] [place] [address] Assigned Surgical Provider 05/08/22 10/08/22 Galo Burrell MD Assigned Heart and Vascular Provider 04/17/22 06/11/22 Livan Sharif MD [address] [place] [address] Cardiovascular Disease 05/14/22 Livan Sharif MD [address] [place] [address] Assigned Heart and Vascular Provider 06/12/22 07/23/22 Catherine Cm MD [address] [place] [address] Cardiovascular Disease 07/21/22 Valery Veronica, PAUcheC 909 [place] [address] Physician Operations Dispatcher Dermatology 07/21/22 Catherine Cm MD [address] [place] [address] Assigned Heart and Vascular Provider 07/24/22 11/05/22 Johnny Murillo MD [address] [facility] [address] [place], [place] [address] Assigned Musculoskeletal Provider 08/14/22 10/08/22 Brea Quinn APRN CHANGE ADVISOR 500 [facility], [place] [address] Nurse Practitioner Dermatology 09/21/22 Brea Quinn APRN CHANGE ADVISOR 6401 [facility] [place] [address] Assigned Surgical Provider 10/09/22 [place] [address] [place] 300 [place], [place] [address] Assigned Musculoskeletal Provider 10/09/22 Livan Sharif MD [address] [place] [address] Assigned Heart and Vascular Provider 11/06/22 11/12/22 Catherine Cm MD [address] [place] [address] Assigned Heart and Vascular Provider 11/13/22 05/27/23 Sydnie Martinez RN Personal Advocate & Liaison (PAL) Family Medicine 03/28/23 07/31/23 Alfonso Renteria MD [address] [place] [address] Assigned Neuroscience Provider 04/02/23 Cheng Todd PA-C [address] [place] [address] Assigned PCP 04/30/23 07/15/23 Radha Lomeli APRN CHANGE ADVISOR 6405 [facility] [address] [place] [address] Assigned Heart and Vascular Provider 05/28/23 Jelena David OD [address] [facility] [place] [address] Ophthalmology 06/15/23 Pao Joseph, VJ Personal Advocate & Liaison (PAL) Nurse 08/01/23 11/07/23 Esha Grimm PA-C [address] [place] [address] Assigned PCP 07/16/23 Valery Veronica PA-C [address] [place] [address] Physician Operations Dispatcher Dermatology 09/19/23 Rey Tay MD [address] [place] [address] [phone] Gastroenterology 09/20/23 Rocky Zepeda DO [address] [place] [address] 382025 Physician Gastroenterology 09/20/23 Philip Dumont MD 516 [place] [address] Physician Ophthalmology 09/22/23 Meredith Carrera PA-C 9 [place] [address] Assigned Gastroenterology Provider 11/01/23 Neil Kent MD [address] [address] Dermatology 11/02/23 [place] [address] [place] [address] Neurological Surgery 12/26/23 documented as of this encounter
--- OUTSIDE RECORDS SUMMARY | 2024-01-07 18:18 | XMS_ITS | Encounter Summary ---
Author Organization [place] Address [address] [place] [address] Care Team Providers Care Hourly Sales Staff Name Role Phone Lita Oseguera Unavailable Unavailable Marija Edgar APRN ACCOUNTING DIRECTOR Primary Care Provider Chanelle Gutierrez APRN CNM Unavailab le Kyara De La Fuente RN Unavailable [phone] Marija Edgar APRN ACCOUNTING DIRECTOR Unavailable Unavail able Mynor Broussard MD Unavailable [phone] Keisha Dotson MD Unavailable Mary Mejia Unavailable Unavailable Stacey Briones COPY WORKER Unavailable Lesley Moody CHW Unavailable Mary Mejia Unavailable Unavailable Lita Oseguera Unavailable Unavailable Galo Burrell MD Unavailable Unavailable Cristina Wood Unavailable Lesley Moody CHW Unavailable Meredith Bedoya Unavailable Unavailable Cristina Wood Unavailable Diana Desir [facility] Unavailable Rain Galaviz PA-C Unavailable Summer Lara MD Unavailable [phone] Summer Lara MD Unavailable [phone] Summer Lara MD Unavailable + [phone] Tavia Wyatt MD Unavailable Unavailable SemJohnny mckeon MD Unavailable +1- Erica Farrell INFORMATION ASSOC ACCOUNTING DIRECTOR Unavailable + BeanTeresita RPH Unavailable Tavia Wyatt MD Unavailable Unavailable Diana Desri H Unavailable [phone] Rich Barrett MD Unavailable [phone] Neil Kent MD Unavailable Roney Story DPM Unavailable [phone] Erica Farrell INFORMATION ASSOC ACCOUNTING DIRECTOR Unavailable + Diana Desir RPH Unavailable +[phone] Jelena David OD Unavailable [phone] Galo Burrell MD Unavailable Unavailable Livan Sharif MD Unavailable + Livan Sharif MD Unavailable + Catherine Cm MD Unavailable + Valery Veronica PA-C Unavailable [phone] Catherine Cm MD Unavailable + Johnny Murillo MD Unavailable +1- Brea Quinn INFORMATION ASSOC ACCOUNTING DIRECTOR Unavailable [phone] Brea Quinn INFORMATION ASSOC ACCOUNTING DIRECTOR Unavailable [phone] Jose Francisco Johnson MD Unavailable Livan Sharif MD Unavailable + Catherine Cm MD Unavailable + Sydnie Martinez RN Unavailable Unavailable Alfonso Renteria MD Unavailable [phone] Esha Grimm PA-C Primary Care Provider Cheng Todd PA-C Unavailable Radha Lomeli APRN ACCOUNTING DIRECTOR Unavailable Jelena David OD Unavailable Pao Joseph RN Unavailable Unavailable Esha Grimm PA-C Unavailable [phone] Valery Veronica PA-C Unavailable Rey Tay MD Unavailable Rocky Zepeda DO Unavailable Philip Dumont MD Unavailable [phone] Meredith Carrera PA-C Unavailable [phone] Neil Kent MD Unavailable Juan Pablo Emmanuel MD Unavailable [phone] Encounter Details Date Type Department Care Team (Latest Contact Info) Description 07/29/[address] [facility] [address] [address] Marija Edgar APRN CNP Palpitations (Primary Dx) [...] COVID-19? No / Unsure 07/30/2020 4:53 PM SWIMMING TEACHER documented as of this encounter Miscellaneous Notes * Telephone Encounter - Marija Edgar APRN CNP - 07/30/2020 10:21 AM SWIMMING TEACHER Responded via MyChart Marija Edgar APRN ACCOUNTING DIRECTOR on 07/30/2020 at 10:28 AM MING TEACHER documented in this encounter Plan of Treatment Upcoming Encounters Date Type Department Care Team (Late st Contact Info) Description 01/09/2024 10:15 AM CDT Office Visit [facility] Neurology [facility] [address] [facility], [address] [place] [phone] Genny Hyman PA-C [facility] Epilepsy Care [address] [facility] [address] [place], [place] 8[address] [place] [address] [facility] [address] [place], [place] [address] 02/06/2024 10:00 AM CDT Office Visit [facility] [address] [phone] Neil Kent MD 500 [place], [place] 56[address]85 03/06/2024 3:00 PM CDT Office Visit [facility] Heart [facility] [address] [facility] [address] [place] [phone] Radha Lomeli APRN ACCOUNTING DIRECTOR [address] [facility] [address] [place], [place] [address] 03/07/2024 9:00 AM CDT Hospital Encounter [facility] [address] 5th [place] [phone] Rocky Zepeda DO 500 [place] [address] 03/07/2024 9:00 AM CDT - 03/07/2024 9:30 AM CDT [address] 5th [place] [phone] Rocky Zepeda DO 500 [place] [address] Esophagoscopy, gastroscopy, duodenoscopy (EGD), combined Scheduled Procedures Name Priority Associated Diagnoses Date/Ti ok ESOPHAGOGASTRODUODENOSCOPY Eosinophilic esophagitis Esophageal dysphagia 03/07/2024 9:00 AM CDT documented as of this encounter Visit Diagnoses Diagnosis Palpitations- Primary Eosinophilic esophagitis Esophageal dysphagia Dysphagia, pharyngoesophageal phase documented in this encounter Additional Health Concerns Infection Onset Date Last Indicated Resolved Time Rule Out COVID-19 07/30/2020 07/30/2020 07/30/2020 7:11 PM SWIMMING TEACHER Rule Out COVID-19 08/30/2020 08/30/2020 08/30/2020 5:05 PM SWIMMING TEACHER Rule Out COVID-19 09/24/2020 09/24/2020 09/24/2020 9:24 AM CDT Rule Out COVID-19 11/05/2020 11/05/2020 11/06/2020 1:09 PM CDT Rule Out COVID-19 05/11/2021 05/11/2021 05/13/2021 10:18 AM CDT Rule Out COVID-19 07/13/2021 07/13/2021 07/14/2021 3:04 PM SWIMMING TEACHER Rule Out COVID-19 07/18/2021 07/18/2021 07/20/2021 1:56 PM SWIMMING TEACHER COVID-19 07/18/2021 07/18/2021 08/08/2021 11:3 9 PM SWIMMING TEACHER Rule Out COVID-19 12/18/2021 12/18/2021 12/19/2021 11:34 AM CDT Rule Out COVID-19 02/24/2022 02/24/2022 02/25/2022 1:08 PM CDT Rule Out COVID-19 04/26/2022 04/26/2022 04/26/2022 6:47 AM CDT Rule Out COVID-19 05/17/2022 05/17/2022 05/17/2022 10:20 PM SWIMMING TEACHER Rule Out COVID-19 06/09/2022 06/09/2022 06/09/2022 9:35 AM SWIMMING TEACHER COVID-19 06/09/2022 06/09/2022 06/30/2022 11:4 1 PM SWIMMING TEACHER Rule Out COVID-19 11/10/2022 11/10/2022 11/11/2022 12:17 PM CDT Rule Out COVID-19 03/07/2023 03/07/2023 03/07/2023 1:20 PM CDT Rule Out COVID-19 12/26/2023 12/26/2023 12/26/2023 9:50 AM CDT Assessment Noted Time PHQ-9 Depression Total Score: 9 06/25/20 7:04 AM SWIMMING TEACHER documented as of this encounter Care Teams Hourly Sales Staff Relationship Specialty Start Date End Date Marija Edgar APRN ACCOUNTING DIRECTOR PCP - General Nurse Practitioner 04/30/20 04/14/23 Esha Grimm PA-C [address] [place] [phone] PCP - General Family Medicine 05/04/23 Lita Oseguera Personal Advocate & Liaison (PAL) 02/28/20 03/27/23 Chanelle Mccann APRN CNM [address] [place] [address] Assigned OBGYN Provider 05/02/2005/09 Kyara De La Fuente, RN Specialty Junior Analyst Neurology 06/04/20 03/05/21 Marija Edgar APRN ACCOUNTING DIRECTOR Assigned PCP 06/08/20 04/29/23 Mynor Broussard MD [address] [address] Assigned Surgical Provider 06/01/20 11/28/21 Keisha Dotson MD 909 [place], [place] 358745 Assigned Neuroscience Provider 06/04/20 04/01/23 Mary Mejia Financial Resource Worker 08/07/20 08/21/20 Stacey Briones, [facility] Lead Junior Analyst Primary Care - CC 08/11/2012/30 Lesley Moody, [facility] Community Health Worker 08/11/2010/01 Mary Mejia Financial Resource Worker 09/02/20 10/06/20 Lita Oseguera Personal Advocate & Liaison (PAL) Family Medicine 09/10/20 09/21/20 Galo Burrell MD Assigned Heart and Vascular Provider 10/05/20 04/02/22 Cristina Wood Financial Resource Worker 10/07/20 10/14/20 Lesley Moody, [facility] Community Health Worker 10/23/2012/30 Meredith Bedoya Financial Resource Worker 10/23/20 11/23/20 Cristina Wood Financial Resource Worker 02/09/21 02/09/21 Diana Desir, [facility] [address] [place], [place] [address]016 Pharmacist Pharmacist 04/17/21 Rain Galaviz PA-C [address] [facility] [address] Physician Client Server Developer Dermatology 04/28/21 Summer Lara MD [address] [place] [address] Assigned OBGYN Provider 05/10/2105/23 Summer Lara MD [address] [place], [place] 5240[address] Assigned OBGYN Provider 05/31/21 Summer Lara MD [address] [facility] [place] [address] Assigned OBGYN Provider 05/24/2105/30 Tavia Wyatt MD [address] [facility] [place] [address] Dermatology 07/14/21 Johnny Murillo MD [address] [place] [address] Assigned Musculoskeletal Provider 08/30/21 03/17/22 Erica Farrell APRN ACCOUNTING DIRECTOR [address] [facility] [address] [place] [address] Nurse Practitioner Cardiovascular Disease 09/09/21 Teresita Bean, [facility] [address] [place] [address] Pharmacist Pharmacist 09/24/21 09/29/21 Tavia Wyatt MD Assigned Surgical Provider 11/29/21 05/07/22 Diana Desir, [facility] [address] [place] [address] Assigned MTM Pharmacist 01/02/22 Rich Barrett MD [address] [address] Physician Ophthalmology 01/21/22 Neil Kent MD [address] [place] [address] Dermatology 02/24/22 Roney Story DPM [address] [address] Assigned Musculoskeletal Provider 03/20/22 08/13/22 Erica Farrell APRN ACCOUNTING DIRECTOR [address] [place] [address] Assigned Heart and Vascular Provider 04/03/22 04/16/22 Diana Desir, [facility] [address] [place] [address] Assigned MTM Pharmacist 04/07/22 Jelena David OD [facility] [facility] [place] [address] Assigned Surgical Provider 05/08/22 10/08/22 Galo Burrell MD Assigned Heart and Vascular Provider 04/17/22 06/11/22 Livan Sharif MD [address] [place] [address] Cardiovascular Disease 05/14/22 Livan Sharif MD [address] [place] [address] Assigned Heart and Vascular Provider 06/12/22 07/23/22 Catherine Cm MD [address] [place] [address]39[address] Cardiovascular Disease 07/21/22 Valery Veronica, PAUcheC [address] [place] [address] 278845 Physician Client Server Developer Dermatology 07/21/22 Catherine Cm MD [address] [place] 0937[address] Assigned Heart and Vascular Provider 07/24/22 11/05/22 Johnny Murillo MD [facility] [address] 107[address] Assigned Musculoskeletal Provider 08/14/22 10/08/22 Brea Quinn APRN ACCOUNTING DIRECTOR [address] [place] [address] 676505 Nurse Practitioner Dermatology 09/21/22 Brea Quinn APRN ACCOUNTING DIRECTOR [address] [place] [address] [place] [id number] Assigned Surgical Provider 10/09/22 [place] [address] [address] [facility] 300 [place] [address] Assigned Musculoskeletal Provider 10/09/22 Livan Sharif MD [address], [facility] [address] [place] 4[address]95 Assigned Heart and Vascular Provider 11/06/22 11/12/22 Catherine Cm MD [address] [place] [address] Assigned Heart and Vascular Provider 11/13/22 05/27/23 ySdnie Martinez RN Personal Advocate & Liaison (PAL) Family Medicine 03/28/23 07/31/23 Alfonso Renteria MD [address] [facility] 200 [place], [place] 970536 Assigned Neuroscience Provider 04/02/23 Cheng Todd PA-C [address] [place] [address] [id number] Assigned PCP 04/30/23 07/15/23 Radha Lomeli, INFORMATION ASSOC ACCOUNTING DIRECTOR [address] [place] 152975 Assigned Heart and Vascular Provider 05/28/23 Jelena David OD [address] [facility] [address] Ophthalmology 06/15/23 Jake, Pao, RN Personal Advocate & Liaison (PAL) Nurse 08/01/23 11/07/23 Esha Grimm PA-C [address] [place] [phone] Assigned PCP 07/16/23 Valery Veronica PA-C [address] [place] [address] 410875 Physician Client Server Developer Dermatology 09/19/23 Rey Tay MD [address] [place] [address] 036665 MD Gastroenterology 09/20/23 Rocky Zepeda DO [address] [place] [address] 318275 Physician Gastroenterology 09/20/23 Philip Dumont MD [address] [place] [address] 620495 Physician Ophthalmology 09/22/23 Meredith Carrera PA-C [address] [place] [address] Assigned Gastroenterology Provider 11/01/23 Neil Kent MD [address] [address] Dermatology 11/02/23 [place] [address] [place] [address] Neurological Surgery 12/26/23 documented as of this encounter
--- OUTSIDE RECORDS SUMMARY | 2024-01-07 18:18 | XMS_ITS | Encounter Summary ---
Author Organization [place] Address [address] [place] [address] Care Team Providers Care Electrical Research Engineer Name Role Phone Lita Oseguera Unavailable Unavailable Marija Edgar APRN SURFACE WATER MANAGER Primary Care Provider Chanelle Gutierrez APRN CNM Unavailab le Kyara De La Fuente RN Unavailable [phone] Marija Edgar APRN SURFACE WATER MANAGER Unavailable Unavail able Mynor Broussard MD Unavailable [phone] Keisha Dotson MD Unavailable [phone] Stacey Briones HEATING EQUIPMENT REPAIRER Unavailable Lesley Moody CHW Unavailable Mary Mejia Unavailable Unavailable Lita Oseguera Unavailable Unavailable Galo Burrell MD Unavailable Unavailable Cristina Wood Unavailable Lesley Moody CHW Unavailable Meredith Bedoya Unavailable Unavailable Cristina Wood Unavailable Diana Desir [facility] Unavailable Rain Galaviz PA-C Unavailable Summer Lara MD Unavailable [phone] Summer Lara MD Unavailable [phone] Summer Lara MD Unavailable + [phone] Tavia Wyatt MD Unavailable Unavailable SemJohnny mckeon MD Unavailable +1- Erica Farrell SWAGE TOOLSETTER SURFACE WATER MANAGER Unavailable + BeanTeresita H Unavailable Tavia Wyatt MD Unavailable Unavailable Daina Desir [facility] Unavailable [phone] Rich Barrett MD Unavailable + Neil Kent MD Unavailable + Roney Story DPM Unavailable [phone] Erica Farrell SWAGE TOOLSETTER SURFACE WATER MANAGER Unavailable + Diana Desir [facility] Unavailable +[phone] Jelena David Radha Unavailable [phone] Galo Burrell MD Unavailable Unavailable Livan Sharif MD Unavailable + Livan Sharif MD Unavailable + Catherine Cm MD Unavailable + Valery Veronica PA-C Unavailable +[phone] Catherine Cm MD Unavailable + Johnny Murillo MD Unavailable +1- Brea Quinn SWAGE TOOLSETTER SURFACE WATER MANAGER Unavailable +1- Brea Quinn SWAGE TOOLSETTER SURFACE WATER MANAGER Unavailable [phone] Jose Francisco Johnson MD Unavailable + Livan Sharif MD Unavailable + Catherine Cm MD Unavailable + Sydnie Martinez RN Unavailable Unavailable Alfonso Renteria MD Unavailable [phone] Esha Grimm PA-C Primary Care Provider [phone] Cheng Todd PA-C Unavailable Radha Lomeli APRN SURFACE WATER MANAGER Unavailable [phone] Jelena David OD Unavailable [phone] Pao Joseph RN Unavailable Unavailable Esha GrimmC Unavailable [phone] Valery Veronica PA-C Unavailable [phone] Rey Tay MD Unavailable Rocky Zepeda DO Unavailable Philip Dumont MD Unavailable [phone] Meredith CarreraC Unavailable [phone] Neil Kent MD Unavailable Juan Pablo Emmanuel MD Unavailable [phone] Encounter Details Date Type Department Care Team (Late st Contact Info) Description 09/02/2020 [facility] Care Coordination [address] [place] [phone] Mary Mejia Social History Tobacco Use [...] do you attend chur or hindu services? More than 4 times per year [...] Answer Date Recorded PHQ-2 Score 0 08/12/2020 [facility] - [...] COVID-19? No / Unsure 09/05/2020 2:50 PM COMPOSING ROOM MACHINIST APPRENTICE documented as of this encounter Plan of Treatment Upcoming Encounters Date Type Department Care Team (Late st Contact Info) Description 01/09/2024 10:15 AM CDT Office Visit [facility] Neurology [address], [address] [place] [address] Genny Hyman PA-C [facility] Epilepsy Care [address] [facility] [address] [place], [place] 7829[address] [place] [address] [place] [address] 02/06/2024 10:00 AM CDT Office Visit [facility] [address] [phone] Neil Kent MD 500 [place] [address] 03/06/2024 3:00 PM CDT Office Visit [facility] Heart [facility] [address] [place] [address] [place] [phone] Radha Lomeli APRN SURFACE WATER MANAGER [address] [place] [address] 03/07/2024 9:00 AM CDT Hospital Encounter [facility] [address] [place] [phone] Rocky Zepeda DO 500 [place], [place] 2620[address] 03/07/2024 9:00 AM CDT - 03/07/2024 9:30 AM CDT Surgery [address] [phone] Rocky Zepeda DO 500 [place], [place] 806845 Esophagoscopy, gastroscopy, duodenoscopy (EGD), combined Scheduled Procedures [...] Out COVID-19 07/13/2021 07/13/2021 07/14/2021 3:04 PM COMPOSING ROOM MACHINIST APPRENTICE Rule Out COVID-19 07/18/2021 07/18/2021 07/20/2021 1:56 PM COMPOSING ROOM MACHINIST APPRENTICE COVID-19 07/18/2021 07/18/2021 08/08/2021 11:3 9 PM COMPOSING ROOM MACHINIST APPRENTICE Rule Out COVID-19 12/18/2021 12/18/2021 12/19/2021 11:34 AM CDT Rule Out COVID-19 02/24/2022 02/24/2022 02/25/2022 1:08 PM CDT Rule Out COVID-19 04/26/2022 04/26/2022 04/26/2022 6:47 AM CDT Rule Out COVID-19 05/17/2022 05/17/2022 05/17/2022 10:20 PM COMPOSING ROOM MACHINIST APPRENTICE Rule Out COVID-19 06/09/2022 06/09/2022 06/09/2022 9:35 AM COMPOSING ROOM MACHINIST APPRENTICE COVID-19 06/09/2022 06/09/2022 06/30/2022 11:4 1 PM COMPOSING ROOM MACHINIST APPRENTICE Rule Out COVID-19 11/10/2022 11/10/2022 11/11/2022 12:17 PM CDT Rule Out COVID-19 03/07/2023 03/07/2023 03/07/2023 1:20 PM CDT Rule Out COVID-19 12/26/2023 12/26/2023 12/26/2023 9:50 AM CDT Assessment Noted Time PHQ-9 Depression Total Score: 9 06/25/20 20 7:04 AM COMPOSING ROOM MACHINIST APPRENTICE documented as of this encounter Care Teams Electrical Research Engineer Relationship Specialty Start Date End Date Marija Edgar APRN CNP PCP - General Nurse Practitioner 04/30/20 04/14/23 Esha Grimm PA-C [address] [place] [phone] PCP - General Family Medicine 05/04/23 Lita Oseguera Personal Advocate & Liaison (PAL) 02/28/20 03/27/23 Chanelle Mccann APRN CNAdam [address] [address] 200 [place] [address] Assigned OBGYN Provider 05/02/2005/09 Kyara De La Fuente, RN Specialty Underwater Trapper Neurology 06/04/20 03/05/21 Marija Edgar APRN SURFACE WATER MANAGER Assigned PCP 06/08/20 04/29/23 Mynor Broussard MD [address] [facility] 500 [place] [address] Assigned Surgical Provider 06/01/20 11/28/21 Keisha Dotson MD 909 [place] [address] Assigned Neuroscience Provider 06/04/20 04/01/23 Stacey Briones, [facility] Lead Underwater Trapper Primary Care - CC 08/11/2012/30 Lesley Moody, [facility] Community Health Worker 08/11/2010/01 Mary Mejia Financial Resource Worker 09/02/20 10/06/20 Lita Oseguera Personal Advocate & Liaison (PAL) Family Medicine 09/10/20 09/21/20 Galo Burrell MD Assigned Heart and Vascular Provider 10/05/20 04/02/22 Cristina Wood Financial Resource Worker 10/07/20 10/14/20 Lesley Moody, [facility] Community Health Worker 10/23/2012/30 Aureliano Meredith K Financial Resource Worker 10/23/20 11/23/20 Cristina Wood Financial Resource Worker 02/09/21 02/09/21 Diana Desir, [facility] [address] [place] [address] Pharmacist Pharmacist 04/17/21 Rain Galaviz PA-C [address] [place] [phone] Physician Nail Feeder Dermatology 04/28/21 Summer Lara MD [address] [place], [place] 2299[address] Assigned OBGYN Provider 05/10/2105/23 Summer Lara MD [address] [place], [place] [address] Assigned OBGYN Provider 05/31/21 2 Summer Lara MD [address] [place], [place] 6513[address] Assigned OBGYN Provider 05/24/2105/30 Tavia Wyatt MD [address] [place] [address] Dermatology 07/14/21 Johnny Murillo MD [facility] [address] [address] Assigned Musculoskeletal Provider 08/30/21 03/17/22 Erica Farrell APRN SURFACE WATER MANAGER [address] [facility] [address] [place] [address] Nurse Practitioner Cardiovascular Disease 09/09/21 Teresita Bean, [facility] [address] [place] [address] Pharmacist Pharmacist 09/24/21 09/29/21 Tavia Wyatt MD Assigned Surgical Provider 11/29/21 05/07/22 Diana Desir, [facility] [address] [place] [address] Assigned MTM Pharmacist 01/02/22 Rich Barrett MD [address] 9[address] Physician Ophthalmology 01/21/22 Neil Kent MD 500 [place] [address] Dermatology 02/24/22 Roney Story DPM [address] [facility] [address] [place], [place] [address] Assigned Musculoskeletal Provider 03/20/22 08/13/22 Erica Farrell APRN SURFACE WATER MANAGER 1700 [place] [address] Assigned Heart and Vascular Provider 04/03/22 04/16/22 Diana Desir, [facility] [address] [place], [place] 935156 Assigned MTM Pharmacist 04/07/22 Frankie Jelenamao Garcia OD [address] [facility] [place] [address] Assigned Surgical Provider 05/08/22 10/08/22 Galo Burrell MD Assigned Heart and Vascular Provider 04/17/22 06/11/22 Livan Sharif MD [address] [place], [place] 5632[address] Cardiovascular Disease 05/14/22 Livan Sharif MD [address] [place], [place] 9[address] Assigned Heart and Vascular Provider 06/12/22 07/23/22 Catherine Cm MD [address] [place], [place] 30[address] Cardiovascular Disease 07/21/22 Valery Veronica, PAUcheC 909 [place], [place] 8[address] Physician Nail Feeder Dermatology 07/21/22 Catherine Cm MD [address] [place], [place] [address] Assigned Heart and Vascular Provider 07/24/22 11/05/22 Johnny Murillo MD [address] [place] [address] Assigned Musculoskeletal Provider 08/14/22 10/08/22 Brea Quinn APRN SURFACE WATER MANAGER [address] [facility] [place], [place] 99[address] Nurse Practitioner Dermatology 09/21/22 Brea Quinn APRN SURFACE WATER MANAGER 6401 [place], [place] 606302 Assigned Surgical Provider 10/09/22 [place] [address] [facility] 300 [place] [address] Assigned Musculoskeletal Provider 10/09/22 Livan Sharif MD [address], [facility] [address] [place] [address] Assigned Heart and Vascular Provider 11/06/22 11/12/22 Catherine Cm MD [address] [facility] [address] [place], [place] 04[address] Assigned Heart and Vascular Provider 11/13/22 05/27/23 Sydnie Martinez RN Personal Advocate & Liaison (PAL) Family Medicine 03/28/23 07/31/23 Alfonso Renteria MD 5775 [facility] 200 [place], [place] 274[address] Assigned Neuroscience Provider 04/02/23 Cheng Todd PA-C [address] [place] [address] [id number] Assigned PCP 04/30/23 07/15/23 Radha Lomeli APRN CNP [address] [facility] [address] [place] [address] Assigned Heart and Vascular Provider 05/28/23 Jelena David OD [address] [facility] [place] [address] MD Ophthalmology 06/15/23 Pao Joseph, VJ Personal Advocate & Liaison (PAL) Nurse 08/01/23 11/07/23 Esha Grimm PA-C [address] [place] [phone] Assigned PCP 07/16/23 Valery Veronica PA-C [address] [place] [address] 489075 Physician Nail Feeder Dermatology 09/19/23 Rey Tay MD [address] [place] [address] 537125 Gastroenterology 09/20/23 Rocky Zepeda DO [address] [place] [address] 177585 Physician Gastroenterology 09/20/23 Philip Dumont MD [address] [place] [address] 161425 Physician Ophthalmology 09/22/23 Meredith Carrera PA-C [address] [place] [address] Assigned Gastroenterology Provider 11/01/23 Neil Kent MD [address] [place] [address] Dermatology 11/02/23 [place] [address] [place] [address] Neurological Surgery 12/26/23 documented as of this encounter
--- OUTSIDE RECORDS SUMMARY | 2024-01-07 18:18 | XMS_ITS | Encounter Summary ---
Author Organization [facility] Address [address] [place] [address] Care Team Providers Care Roll Forming Supervisor Name Role Phone Lita Oseguera Unavailable Unavailable Marija Edgar APRN WARP KNIT OPERATOR Primary Care Provider Chanelle Gutierrez APRN CNM Unavailab le Kyara De La Fuente RN Unavailable [phone] Marija Edgar APRN WARP KNIT OPERATOR Unavailable Unavail able Mynor Broussard MD Unavailable [phone] Keisha Dotson MD Unavailable [phone] Stacey Briones VOCATIONAL SERVICES SPECIALIST Unavailable [phone] Lesley Moody CHW Unavailable Mary Mejia Unavailable Unavailable Lita Oseguera Unavailable Unavailable Galo Burrell MD Unavailable Unavailable Cristina Wood Unavailable Lesley Moody CHW Unavailable [phone] Meredith Bedoya Unavailable Unavailable Cristina Wood Unavailable Diana Desir [facility] Unavailable [phone] Rain Galaviz PA-C Unavailable Summer Lara MD Unavailable [phone] Summer Lara MD Unavailable [phone] Summer Lara MD Unavailable + [phone] Tavia Wyatt MD Unavailable Unavailable SemJohnny mckeon MD Unavailable +1- Erica Farrell CONSTRUCTION MANAGER WARP KNIT OPERATOR Unavailable + BeanTeresita H Unavailable Tavia Wyatt MD Unavailable Unavailable Diana Desir [facility] Unavailable [phone] Rich Barrett MD Unavailable + Neil Kent MD Unavailable + Roney Story DPM Unavailable [phone] Erica Farrell CONSTRUCTION MANAGER WARP KNIT OPERATOR Unavailable + Diana Desir [facility] Unavailable [phone] Jelena David Radha Unavailable [phone] Galo Burrell MD Unavailable Unavailable Livan Sharif MD Unavailable + Livan Sharif MD Unavailable + Catherine Cm MD Unavailable + Valery Veronica PA-C Unavailable +[phone] Catherine Cm MD Unavailable + Johnny Murillo MD Unavailable +1- Brea Quinn CONSTRUCTION MANAGER WARP KNIT OPERATOR Unavailable +1- Brea Quinn CONSTRUCTION MANAGER WARP KNIT OPERATOR Unavailable [phone] Jose Francisco Johnson MD Unavailable + Livan Sharif MD Unavailable + Catherine Cm MD Unavailable + Sydnie Martinez RN Unavailable Unavailable Alfonso Renteria MD Unavailable [phone] Esha Grimm PA-C Primary Care Provider [phone] Cheng Todd PA-C Unavailable Radha Lomeli APRN WARP KNIT OPERATOR Unavailable [phone] Jelena David OD Unavailable [phone] Pao Joseph RN Unavailable Unavailable Esha GrimmC Unavailable [phone] Valery Veronica PA-C Unavailable [phone] Rey Tay MD Unavailable Rocky Zepeda DO Unavailable Philip Dumont MD Unavailable [phone] Meredith Carrera-C Unavailable [phone] Neil Knet MD Unavailable Juan Pablo Emmanuel MD Unavailable [phone] Encounter Details Date Type Department Care Team (Late st Contact Info) Description 08/24/2020 [facility] [place] [address] [address] Marija Edgar, ARLENE WARP KNIT OPERATOR Social History Tobacco Use Types Packs/Day Years [...] do you attend chur or [employer] services? More than 4 times [...] Date Recorded PHQ-2 Score 0 08/12/2020 [facility] - [...] in a prison (including now)? No 08/11/2020 Education Answer Date [...] COVID-19? No / Unsure 08/20/2020 12:47 PM COMPUTER GRAPHIC ARTIST documented as of this encounter Miscellaneous Notes * Telephone Encounter - Marija Edgar APRN CNP - 08/25/2020 11:47 AM COMPUTER GRAPHIC ARTIST Replied via MyChart Marija Edgar APRN CNP on 08/25/2020 at 11:51 AM UTER GRAPHIC ARTIST documented in this encounter Plan of Treatment Upcoming Encounters Date Type Department Care Team (Late st Contact Info) Description 01/09/2024 10:15 AM CDT Office Visit [facility] Neurology [facility] [address], [address] [place] [phone] Genny Hyman PA-C [facility] Epilepsy [facility] [address] [facility] [address] [place] [address] [place] [address] [facility] [address] [place], [place] [address] 02/06/2024 10:00 AM CDT Office Visit [facility] [address] [phone] Neil Kent MD [address] [place], [place] [address] 03/06/2024 3:00 PM CDT Office Visit [facility] Heart [facility] [address] [place] [phone] Radha Lomeli, CONSTRUCTION MANAGER WARP KNIT OPERATOR [address] [place], [place] [address] 03/07/2024 9:00 AM CDT Hospital Encounter [facility] [address] [facility] 5th [place] [phone] Rocky Zepeda DO 500 [place] [address] 03/07/2024 9:00 AM CDT - 03/07/2024 9:30 AM CDT Surgery [facility] [address] [place] [address] 5[address] [place] [phone] Rocky Zepeda DO [address] [place], [place] [address] Esophagoscopy, gastroscopy, duodenoscopy (EGD), combined Scheduled Procedures Name Priority Associated Diagnoses Date/Ti ia ESOPHAGOGASTRODUODENOSCOPY Eosinophilic esophagitis Esophageal dysphagia 03/07/2024 9:00 AM CDT documented as of this encounter Visit Diagnoses Not on filedocumented in this encounter Additional Health Concerns Infection Onset Date Last Indicated Resolved Time Rule Out COVID-19 08/30/2020 08/30/2020 08/30/2020 5:05 PM COMPUTER GRAPHIC ARTIST Rule Out COVID-19 09/24/2020 09/24/2020 09/24/2020 9:24 AM CDT Rule Out COVID-19 11/05/2020 11/05/2020 11/06/2020 1:09 PM CDT Rule Out COVID-19 05/11/2021 05/11/2021 05/13/2021 10:18 AM CDT Rule Out COVID-19 07/13/2021 07/13/2021 07/14/2021 3:04 PM COMPUTER GRAPHIC ARTIST Rule Out COVID-19 07/18/2021 07/18/2021 07/20/2021 1:56 PM COMPUTER GRAPHIC ARTIST COVID-19 07/18/2021 07/18/2021 08/08/2021 11:3 9 PM COMPUTER GRAPHIC ARTIST Rule Out COVID-19 12/18/2021 12/18/2021 12/19/2021 11:34 AM CDT Rule Out COVID-19 02/24/2022 02/24/2022 02/25/2022 1:08 PM CDT Rule Out COVID-19 04/26/2022 04/26/2022 04/26/2022 6:47 AM CDT Rule Out COVID-19 05/17/2022 05/17/2022 05/17/2022 10:20 PM COMPUTER GRAPHIC ARTIST Rule Out COVID-19 06/09/2022 06/09/2022 06/09/2022 9:35 AM COMPUTER GRAPHIC ARTIST COVID-19 06/09/2022 06/09/2022 06/30/2022 11:4 1 PM COMPUTER GRAPHIC ARTIST Rule Out COVID-19 11/10/2022 11/10/2022 11/11/2022 12:17 PM CDT Rule Out COVID-19 03/07/2023 03/07/2023 03/07/2023 1:20 PM CDT Rule Out COVID-19 12/26/2023 12/26/2023 12/26/2023 9:50 AM CDT Assessment Noted Time PHQ-9 Depression Total Score: 9 06/25/20 20 7:04 AM COMPUTER GRAPHIC ARTIST documented as of this encounter Care Teams Roll Forming Supervisor Relationship Specialty Start Date End Date Marija Edgar APRN WARP KNIT OPERATOR PCP - General Nurse Practitioner 04/30/20 04/14/23 Esha Grimm PA-C [address] [place] [phone] PCP - General Family Medicine 05/04/23 Lita Oseguera Personal Advocate & Liaison (PAL) 02/28/20 03/27/23 [place] [address] [place] [address] [address] [place] [address] Assigned OBGYN Provider 05/02/2005/09 Kyara De La Fuente, RN Specialty Strike Off Machine Operator Neurology 06/04/20 03/05/21 Marija Edgar APRN WARP KNIT OPERATOR Assigned PCP 06/08/20 04/29/23 Mynor Broussard MD [address] [facility] 500 [place] [address] Assigned Surgical Provider 06/01/20 11/28/21 Keisha Dotson MD [address] [place] [address] Assigned Neuroscience Provider 06/04/20 04/01/23 Stacey Briones, VOCATIONAL SERVICES SPECIALIST Lead Strike Off Machine Operator Primary Care - CC 08/11/2012/30 Lesley Moody, [facility] Community Health Worker 08/11/2010/01 Mary Mejia [...] 02/09/21 Diana Desir, [facility] [address] [place], [place] [phone] Pharmacist Pharmacist 04/17/21 Rain Galaviz PA-C [address] [place] [address] [place] [address] Physician Advanced Practice Registered Nurse Dermatology 04/28/21 Summer Lara MD [address] [place] [address] Assigned OBGYN Provider 05/10/2105/23 Summer Lara MD [address] [place] [address] Assigned OBGYN Provider 05/31/21 2 Summer Lara MD [address] [place] [address] Assigned OBGYN Provider 05/24/2105/30 Tavia Wyatt MD [address] [place] [address] Dermatology 07/14/21 Johnny Murillo MD [address] [place] [address] Assigned Musculoskeletal Provider 08/30/21 03/17/22 Erica Farrell APRN WARP KNIT OPERATOR [address] [facility] [address] [place] [address] Nurse Practitioner Cardiovascular Disease 09/09/21 [facility] [address] [place] [address] Pharmacist Pharmacist 09/24/21 09/29/21 Tavia Wyatt MD Assigned Surgical Provider 11/29/21 05/07/22 [facility] [address] [place] [address] Assigned MTM Pharmacist 01/02/22 Rich Barrett MD [address] [facility] [address] [place], [place] [address] Physician Ophthalmology 01/21/22 Neil Kent MD [address] [place], [place] [phone] Dermatology 02/24/22 Roney Story DPM [address] [facility] [address] [place] [address] Assigned Musculoskeletal Provider 03/20/22 08/13/22 Erica Farrell APRN WARP KNIT OPERATOR [address]00 [place] [address] Assigned Heart and Vascular Provider 04/03/22 04/16/22 Diana Desir, [facility] [address] [place], [place] [address] Assigned MTM Pharmacist 04/07/22 [place] David OD [address] [facility] [place] [address] Assigned Surgical Provider 05/08/22 10/08/22 Galo Burrell MD Assigned Heart and Vascular Provider 04/17/22 06/11/22 Livan Sharif MD [address] [place] [address] Cardiovascular Disease 05/14/22 Livan Sharif MD [address] [place] [address] Assigned Heart and Vascular Provider 06/12/22 07/23/22 Catherine Cm MD [address] [place] [address] Cardiovascular Disease 07/21/22 Valery Veronica, PAUcheC [address] [place] [address] Physician Advanced Practice Registered Nurse Dermatology 07/21/22 Catherine Cm MD [address] [facility] [place] [address] Assigned Heart and Vascular Provider 07/24/22 11/05/22 Johnny Murillo MD [address] [address] Assigned Musculoskeletal Provider 08/14/22 10/08/22 Brea Quinn APRN WARP KNIT OPERATOR [address] [place] [address] Nurse Practitioner Dermatology 09/21/22 Brea Quinn APRN WARP KNIT OPERATOR [address] [place] [address] [place], [place] [address] Assigned Surgical Provider 10/09/22 [place] [address] [address] Assigned Musculoskeletal Provider 10/09/22 Livan Sharif MD [address] [facility] [address] [place] [address] Assigned Heart and Vascular Provider 11/06/22 11/12/22 Catherine Cm MD [address] [facility] [place] [address] Assigned Heart and Vascular Provider 11/13/22 05/27/23 Sydnie Martinez RN Personal Advocate & Liaison (PAL) Family Medicine 03/28/23 07/31/23 Alfonso Renteria MD [address] [facility] [address] [place] [address] Assigned Neuroscience Provider 04/02/23 Cheng Todd PA-C [address] [place] [address] Assigned PCP 04/30/23 07/15/23 Radha Lomeli APRN WARP KNIT OPERATOR [address] [facility] [address] [place] [address] Assigned Heart and Vascular Provider 05/28/23 Jelena David OD [address] [facility] [place] [address] Ophthalmology 06/15/23 Pao Joseph, VJ Personal Advocate & Liaison (PAL) Nurse 08/01/23 11/07/23 Esha Grimm PA-C [address] [place] [address] Assigned PCP 07/16/23 Valery Veronica PA-C [address] [place], [place] [address] Physician Advanced Practice Registered Nurse Dermatology 09/19/23 Rey Tay MD 9 [place] [address] Gastroenterology 09/20/23 Rocky Zepeda DO 500 [place] [address] Physician Gastroenterology 09/20/23 Philip Dumont MD [address] [place] [address] Physician Ophthalmology 09/22/23 Meredith Carrera PA-C [address] [place] [address] Assigned Gastroenterology Provider 11/01/23 Neil Kent MD [address] [address] Dermatology 11/02/23 [place] [address] [place] [address] [address] Neurological Surgery 12/26/23 documented as of this encounter
--- OUTSIDE RECORDS SUMMARY | 2024-01-07 18:18 | XMS_ITS | Encounter Summary ---
Author Organization [facility] Address [address] [place] [address] Care Team Providers Care Air Tucker Name Role Phone Lita Oseguera Unavailable Unavailable Marija Edgar APRN TRACTOR SWEEPER DRIVER Primary Care Provider Chanelle Gutierrez APRN CNM Unavailab le Kyara De La Fuente RN Unavailable Marija Edgar APRN TRACTOR SWEEPER DRIVER Unavailable Unavail able Mynor Broussard MD Unavailable [phone] Keisha Dotson MD Unavailable [phone] Mary Mejia Unavailable Unavailable Stacey Briones PAINTER SHIPYARD Unavailable [phone] Lesley Moody CHW Unavailable [phone] Mary Mejia Unavailable Unavailable Lita Oseguera Unavailable Unavailable Galo Burrell MD Unavailable Unavailable Cristina Wood Unavailable Lesley Moody CHW Unavailable Meredith Bedoya Unavailable Unavailable Cristina Wood Unavailable Diana Desir [facility] Unavailable [phone] Rain Galaviz PA-C Unavailable Summer Lara MD Unavailable [phone] Summer Lara MD Unavailable [phone] Summer Lara MD Unavailable + [phone] Tavia Wyatt MD Unavailable Unavailable SemJohnny mckeon MD Unavailable +1- Erica Farrell CONTENT DIRECTOR TRACTOR SWEEPER DRIVER Unavailable + BeanTeresita RPH Unavailable Tavia Wyatt MD Unavailable Unavailable Diana Desir H Unavailable [phone] Rich Barrett MD Unavailable [phone] Neil Kent MD Unavailable Roney Story DPM Unavailable [phone] Erica Farrell CONTENT DIRECTOR TRACTOR SWEEPER DRIVER Unavailable + Diana Desir RPH Unavailable [phone] Jelena David OD Unavailable [phone] Galo Burrell MD Unavailable Unavailable Livan Sharif MD Unavailable + Livan Sharif MD Unavailable + Catherine Cm MD Unavailable + Valery Veronica PA-C Unavailable [phone] Catherine Cm MD Unavailable + Johnny Murillo MD Unavailable +1- Brea Quinn CONTENT DIRECTOR TRACTOR SWEEPER DRIVER Unavailable [phone] Brea Quinn CONTENT DIRECTOR TRACTOR SWEEPER DRIVER Unavailable [phone] Jose Francisco Johnson MD Unavailable Livan Sharif MD Unavailable + Catherine Cm MD Unavailable + Sydnie Martinez RN Unavailable Unavailable Alfonso Renteria MD Unavailable [phone] Esha Grimm PA-C Primary Care Provider Cehng Todd PA-C Unavailable Radha Lomeli APRN TRACTOR SWEEPER DRIVER Unavailable Jelena David OD Unavailable [phone] Pao Joseph RN Unavailable Unavailable Esha Grimm PA-C Unavailable [phone] Valery Veronica PA-C Unavailable Rey Tay MD Unavailable Rocky Zepeda DO Unavailable Philip Dumont MD Unavailable [phone] Meredith Carrera PA-C Unavailable [phone] Neil Kent MD Unavailable Juan Pablo Emmanuel MD Unavailable Encounter Details Date Type Department Care Team (Late st Contact Info) Description 08/01/2020 [facility] [address] [address] Marija Edgar APRN TRACTOR SWEEPER DRIVER Social History Tobacco Use Types Packs/Day [...] COVID-19? No / Unsure 07/30/2020 4:53 PM AUTOMOBILE DESIGNER documented as of this encounter Miscellaneous Notes * Telephone Encounter - Estephania Black RN - 08/01/2020 9:11 AM AUTOMOBILE DESIGNER Schedule patient for Zio Patch. Detailed message left on phone and through [employer]. Estephania Black RN Flex MOBILE DESIGNER * Telephone Encounter - Marija Edgar APRN CNP - 08/01/2020 8:46 AM AUTOMOBILE DESIGNER Please help patient schedule her zio patch. This order has been in place since 05/2020 and a new order was placed this week. MOBILE DESIGNER documented in this encounter Plan of Treatment Upcoming Encounters Date Type Department Care Team (Late st Contact Info) Description 01/09/2024 10:15 AM CDT Office Visit [facility] Neurology [address], [address] [place] [phone] Genny Hyman PAUcheC [facility] Epile[facility] [address] [facility] [address] [place], [place] [address] [place] [address] [facility] [address] [place], [place] [address] 02/06/2024 10:00 AM CDT Office Visit [facility] [address] [phone] Neil Kent MD [address] [place], [place] [address] 03/06/2024 3:00 PM CDT Office Visit [facility] Heart [facility] [address] [facility] [address] [place] [phone] Radha Lomeli CONTENT DIRECTOR TRACTOR SWEEPER DRIVER [address] [place] [address] 03/07/2024 9:00 AM CDT Hospital Encounter [facility] [place] [address] [place] [phone] Rocky Zepeda DO [address] [place], [place] [address] 03/07/2024 9:00 AM CDT - 03/07/2024 9:30 AM CDT Surgery [facility] OR [address] [phone] Rocky Zepeda DO [address] [place], [place] [phone] Esophagoscopy, gastroscopy, duodenoscopy (EGD), combined Scheduled Procedures Name Priority Associated Diagnoses Date/Ti al ESOPHAGOGASTRODUODENOSCOPY Eosinophilic esophagitis Esophageal dysphagia 03/07/2024 9:00 AM CDT documented as of this encounter Visit Diagnoses Not on filedocumented in this encounter Additional Health Concerns Infection Onset Date Last Indicated Resolved Time Rule Out COVID-19 08/30/2020 08/30/2020 08/30/2020 5:05 PM AUTOMOBILE DESIGNER Rule Out COVID-19 09/24/2020 09/24/2020 09/24/2020 9:24 AM CDT Rule Out COVID-19 11/05/2020 11/05/2020 11/06/2020 1:09 PM CDT Rule Out COVID-19 05/11/2021 05/11/2021 05/13/2021 10:18 AM CDT Rule Out COVID-19 07/13/2021 07/13/2021 07/14/2021 3:04 PM AUTOMOBILE DESIGNER Rule Out COVID-19 07/18/2021 07/18/2021 07/20/2021 1:56 PM AUTOMOBILE DESIGNER COVID-19 07/18/2021 07/18/2021 08/08/2021 11:3 9 PM AUTOMOBILE DESIGNER Rule Out COVID-19 12/18/2021 12/18/2021 12/19/2021 11:34 AM CDT Rule Out COVID-19 02/24/2022 02/24/2022 02/25/2022 1:08 PM CDT Rule Out COVID-19 04/26/2022 04/26/2022 04/26/2022 6:47 AM CDT Rule Out COVID-19 05/17/2022 05/17/2022 05/17/2022 10:20 PM AUTOMOBILE DESIGNER Rule Out COVID-19 06/09/2022 06/09/2022 06/09/2022 9:35 AM AUTOMOBILE DESIGNER COVID-19 06/09/2022 06/09/2022 06/30/2022 11:4 1 PM AUTOMOBILE DESIGNER Rule Out COVID-19 11/10/2022 11/10/2022 11/11/2022 12:17 PM CDT Rule Out COVID-19 03/07/2023 03/07/2023 03/07/2023 1:20 PM CDT Rule Out COVID-19 12/26/2023 12/26/2023 12/26/2023 9:50 AM CDT Assessment Noted Time PHQ-9 Depression Total Score: 9 06/25/20 20 7:04 AM AUTOMOBILE DESIGNER documented as of this encounter Care Teams Air Tucker Relationship Specialty Start Date End Date Marija Edgar APRN TRACTOR SWEEPER DRIVER PCP - General Nurse Practitioner 04/30/20 04/14/23 Esha Grimm PA-C [address] [place] [phone] PCP - General Family Medicine 05/04/23 Lita Oseguera Personal Advocate & Liaison (PAL) 02/28/20 03/27/23 Chanelle Mccann APRN CNM [address] [address] [facility], [address] [address] Assigned OBGYN Provider 05/02/2005/09 Kyara De La Fuente, RN Specialty Technology Lead Neurology 06/04/20 03/05/21 Marija Edgar APRN TRACTOR SWEEPER DRIVER Assigned PCP 06/08/20 04/29/23 Mynor Broussard MD [address] [address] Assigned Surgical Provider 06/01/20 11/28/21 Keisha Dotson MD [address] [place], [place] [address] Assigned Neuroscience Provider 06/04/20 04/01/23 Mary Mejia Financial Resource Worker 08/07/20 08/21/20 Stacey Briones, [facility] Lead Technology Lead Primary Care - CC 08/11/2012/30 Lesley Moody, [facility] Community Health Worker 08/11/2010/01 Mary Mejia Financial Resource Worker 09/02/20 10/06/20 Lita Oseguera Personal Advocate & Liaison (PAL) Family Medicine 09/10/20 09/21/20 Galo Burrell MD Assigned Heart and Vascular Provider 10/05/20 04/02/22 Cristina Wood Financial Resource Worker 10/07/20 10/14/20 Lesley Moody, [facility] Community Health Worker 10/23/2012/30 Meredith Bedoya Financial Resource Worker 10/23/20 11/23/20 Cristina Wood Financial Resource Worker 02/09/21 02/09/21 [facility] [address] [place] [address] Pharmacist Pharmacist 04/17/21 Rain Galaviz PA-C [address] [facility] [address] [place] [address] Physician Egyptologist Dermatology 04/28/21 Summer Lara MD [address] [place] [address] [place] [address] Assigned OBGYN Provider 05/10/2105/23 Summer Lara MD [address] [place] [address] [place] [address] Assigned OBGYN Provider 05/31/21 2 Summer Lara MD [address] [place] [address] Assigned OBGYN Provider 05/24/2105/30 Tavia Wyatt MD [address] [place] [address] Dermatology 07/14/21 Johnny Murillo MD [address] [place] [address] Assigned Musculoskeletal Provider 08/30/21 03/17/22 Erica Farrell APRN TRACTOR SWEEPER DRIVER [address] [facility] [address] [place] [address] Nurse Practitioner Cardiovascular Disease 09/09/21 Teresita Bean, [facility] [address] [place] [address] Pharmacist Pharmacist 09/24/21 09/29/21 Tavia Wyatt MD Assigned Surgical Provider 11/29/21 05/07/22 Diana Desir, [facility] [address] [place] [address] Assigned MTM Pharmacist 01/02/22 Rich Barrett MD [address] [id number] Physician Ophthalmology 01/21/22 Neil Kent MD [address] [place] [address] Dermatology 02/24/22 Roney Story DPM [address] [facility] [address] [place] [address] Assigned Musculoskeletal Provider 03/20/22 08/13/22 Erica Farrell APRN TRACTOR SWEEPER DRIVER [address] [place] [address] Assigned Heart and Vascular Provider 04/03/22 04/16/22 Diana Desir, [facility] [address] [place] [address] Assigned MTM Pharmacist 04/07/22 [place]ena David OD [address] [facility] [address] Assigned Surgical Provider 05/08/22 10/08/22 Galo Burrell MD Assigned Heart and Vascular Provider 04/17/22 06/11/22 Livan Sharif MD [address] [place] [address] Cardiovascular Disease 05/14/22 Livan Sharif MD [address] [place] [address] Assigned Heart and Vascular Provider 06/12/22 07/23/22 Catherine Cm MD [address] [place] [address] Cardiovascular Disease 07/21/22 Valery Veronica, PA-C [address] [place] [address] 148515 Physician Egyptologist Dermatology 07/21/22 Catherine Cm MD [address] [place] [address] Assigned Heart and Vascular Provider 07/24/22 11/05/22 Johnny Murillo MD [facility] [place] 215724 Assigned Musculoskeletal Provider 08/14/22 10/08/22 Brea Quinn APRN TRACTOR SWEEPER DRIVER [address] [place] [address] 679185 Nurse Practitioner Dermatology 09/21/22 Brea Quinn APRN TRACTOR SWEEPER DRIVER [address] [facility] [place] [address] Assigned Surgical Provider 10/09/22 [place] [address] [place] [address] Assigned Musculoskeletal Provider 10/09/22 Livan Sharif MD [address] [place] [address] Assigned Heart and Vascular Provider 11/06/22 11/12/22 Catherine Cm MD [address] [place] [address] Assigned Heart and Vascular Provider 11/13/22 05/27/23 Sydnie Martinez, RN Personal Advocate & Liaison (PAL) Family Medicine 03/28/23 07/31/23 Alfonso Renteria MD [address] [facility] 200 [place] [address] Assigned Neuroscience Provider 04/02/23 Cheng Todd PA-C [address] [place] [address] Assigned PCP 04/30/23 07/15/23 Radha Lomeli APRN TRACTOR SWEEPER DRIVER [address] [place] [address] Assigned Heart and Vascular Provider 05/28/23 Jelena David OD [address] [facility] [address] MD Ophthalmology 06/15/23 Pao Joseph, RN Personal Advocate & Liaison (PAL) Nurse 08/01/23 11/07/23 Esha rGimm PA-C [address] [place] [address] Assigned PCP 07/16/23 Valery Veronica PA-C [address] [place] [address] 236215 Physician Egyptologist Dermatology 09/19/23 Rey Tay MD [address] [place] [address] MD Gastroenterology 09/20/23 Rocky Zepeda DO [address] [place] [address] 417785 Physician Gastroenterology 09/20/23 Philip Dumont MD [address] [place] [address] 492585 Physician Ophthalmology 09/22/23 Meredith Carrera PA-C [address] [place] [address] 487735 Assigned Gastroenterology Provider 11/01/23 Neil Kent MD [address] [place] [address] 947310 Dermatology 11/02/23 [place] [address] [place] [address] Neurological Surgery 12/26/23 documented as of this encounter
--- OUTSIDE RECORDS SUMMARY | 2024-01-07 18:18 | XMS_ITS | Encounter Summary ---
Author Organization [facility] Address [address] [place] [address] Care Team Providers Care Database Admin Name Role Phone Lita Oseguera Unavailable Unavailable Marija Edgar APRN PHARMACY ANALYST Primary Care Provider Chanelle Gutierrez APRN CNM Unavailab le Kyara De La Fuente RN Unavailable [phone] Marija Edgar APRN PHARMACY ANALYST Unavailable Unavail able Mynor Broussard MD Unavailable [phone] Keisha Dotson MD Unavailable Mary Mejia Unavailable Unavailable Stacey Briones OR SCRUB TECH Unavailable Lesley Moody CHW Unavailable Mary Mejia Unavailable Unavailable Lita Oseguera Unavailable Unavailable Galo Burrell MD Unavailable Unavailable Cristina Wood Unavailable Lesley Moody CHW Unavailable Meredith Bedoya Unavailable Unavailable Cristina Wood Unavailable Diana Desir [facility] Unavailable [phone] Rain Galaviz PA-C Unavailable [phone] Summer Lara MD Unavailable [phone] Summer Lara MD Unavailable [phone] Summer Lara MD Unavailable + [phone] Tavia Wyatt MD Unavailable Unavailable SemJohnny mckeon MD Unavailable +1- Erica Farrell [employer] PHARMACY ANALYST Unavailable + BeanTeresita RPH Unavailable Tavia Wyatt MD Unavailable Unavailable Diana Desir H Unavailable [phone] Rich Barrett MD Unavailable [phone] Neil Kent MD Unavailable Roney Story DPM Unavailable [phone] Erica Farrell [employer] PHARMACY ANALYST Unavailable + Diana Desir RPH Unavailable [phone] Jelena David OD Unavailable [phone] Galo Burrell MD Unavailable Unavailable Livan Sharif MD Unavailable + Livan Sharif MD Unavailable + Catherine Cm MD Unavailable + Valery Veronica PA-C Unavailable [phone] Catherine Cm MD Unavailable + Johnny Murillo MD Unavailable +1- Brea Quinn [employer] PHARMACY ANALYST Unavailable [phone] Brea Quinn [employer] PHARMACY ANALYST Unavailable [phone] Jose Francisco Johnson MD Unavailable Livan Sharif MD Unavailable + Catherine Cm MD Unavailable + Sydnie Martinez RN Unavailable Unavailable Alfonso Renteria MD Unavailable [phone] Esha Grimm PA-C Primary Care Provider Cheng Todd PA-C Unavailable [phone] Radha Lomeli APRN PHARMACY ANALYST Unavailable Jelena David OD Unavailable Pao Joseph RN Unavailable Unavailable Esha Grimm PA-C Unavailable [phone] Valery Veronica PA-C Unavailable [phone] Rey Tay MD Unavailable Rocky Zepeda DO Unavailable Philip Dumont MD Unavailable [phone] Meredith Carrera PA-C Unavailable Neil Kent MD Unavailable Juan Pablo Emmanuel MD Unavailable [phone] Encounter Details Date Type Department Care Team (Late st Contact Info) Description 07/29/2020 MyC Medical Advice M [facility] Epilepsy Care [address] [facility], [address] [place] [address] Keisha Dotson MD 9 [place] [address] Social History Tobacco Use Types [...] COVID-19? No / Unsure 07/30/2020 4:53 PM EDUCATION PROGRAM COORDINATOR documented as of this encounter Plan of Treatment Upcoming Encounters Date Type Department Care Team (Late st Contact Info) Description 01/09/2024 10:15 AM CDT Office Visit [facility] Neurology [facility] [address] [facility], [address] [place] [phone] Genny Hyman PA-C [facility] Epilepsy Care [address] [facility] [address] [place], [place] 8489[address] [place] [address] [address] [place], [place] 290[address] 02/06/2024 10:00 AM CDT Office [facility] [address] [phone] Neil Kent MD 500 [place], [place] 190995 03/06/2024 3:00 PM CDT Office Visit [facility] Heart [facility] [address] [facility] [address] [place] [phone] Radha Lomeli, SK[employer] PHARMACY ANALYST [address] [place], [place] 6[address] 03/07/2024 9:00 AM CDT Hospital Encounter [facility] [address] [facility] [address] 5th [place] [phone] Rocky Zepeda DO 500 [place], [place] 79[address] 03/07/2024 9:00 AM CDT - 03/07/2024 9:30 AM CDT [facility] [address] [facility] [address] 5th [place] [address] Rocky Zepeda DO 500 [place] [address] Esophagoscopy, gastroscopy, duodenoscopy (EGD), combined Scheduled Procedures Name Priority Associated Diagnoses Date/Ti ms ESOPHAGOGASTRODUODENOSCOPY Eosinophilic esophagitis Esophageal dysphagia 03/07/2024 9:00 AM CDT documented as of this encounter Visit Diagnoses Not on filedocumented in this encounter Additional Health Concerns Infection Onset Date Last Indicated Resolved Time Rule Out COVID-19 07/30/2020 07/30/2020 07/30/2020 7:11 PM EDUCATION PROGRAM COORDINATOR Rule Out COVID-19 08/30/2020 08/30/2020 08/30/2020 5:05 PM EDUCATION PROGRAM COORDINATOR Rule Out COVID-19 09/24/2020 09/24/2020 09/24/2020 9:24 AM CDT Rule Out COVID-19 11/05/2020 11/05/2020 11/06/2020 1:09 PM CDT Rule Out COVID-19 05/11/2021 05/11/2021 05/13/2021 10:18 AM CDT Rule Out COVID-19 07/13/2021 07/13/2021 07/14/2021 3:04 PM EDUCATION PROGRAM COORDINATOR Rule Out COVID-19 07/18/2021 07/18/2021 07/20/2021 1:56 PM EDUCATION PROGRAM COORDINATOR COVID-19 07/18/2021 07/18/2021 08/08/2021 11:3 9 PM EDUCATION PROGRAM COORDINATOR Rule Out COVID-19 12/18/2021 12/18/2021 12/19/2021 11:34 AM CDT Rule Out COVID-19 02/24/2022 02/24/2022 02/25/2022 1:08 PM CDT Rule Out COVID-19 04/26/2022 04/26/2022 04/26/2022 6:47 AM CDT Rule Out COVID-19 05/17/2022 05/17/2022 05/17/2022 10:20 PM EDUCATION PROGRAM COORDINATOR Rule Out COVID-19 06/09/2022 06/09/2022 06/09/2022 9:35 AM EDUCATION PROGRAM COORDINATOR COVID-19 06/09/2022 06/09/2022 06/30/2022 11:4 1 PM EDUCATION PROGRAM COORDINATOR Rule Out COVID-19 11/10/2022 11/10/2022 11/11/2022 12:17 PM CDT Rule Out COVID-19 03/07/2023 03/07/2023 03/07/2023 1:20 PM CDT Rule Out COVID-19 12/26/2023 12/26/2023 12/26/2023 9:50 AM CDT Assessment Noted Time PHQ-9 Depression Total Score: 9 06/25/20 7:04 AM EDUCATION PROGRAM COORDINATOR documented as of this encounter Care Teams Database Admin Relationship Specialty Start Date End Date Marija Edgar APRN PHARMACY ANALYST PCP - General Nurse Practitioner 04/30/20 04/14/23 Esha Grimm PA-C [address] [place] [address] PCP - General Family Medicine 05/04/23 Lita Oseguera Personal Advocate & Liaison (PAL) 02/28/20 03/27/23 Chanelle Mccann APRN CNAdam [address] [facility] 200 [place], [place] 894037 Assigned OBGYN Provider 05/02/2005/09 Kyara De La Fuente, RN Specialty Type Photography Supervisor Neurology 06/04/20 03/05/21 Marija Edgar APRN PHARMACY ANALYST Assigned PCP 06/08/20 04/29/23 Mynor Broussard MD [address] [facility] 500 [place] [address] Assigned Surgical Provider 06/01/20 11/28/21 Keisha Dotson MD 909 [place], [place] 360545 Assigned Neuroscience Provider 06/04/20 04/01/23 Mary Mejia Financial Resource Worker 08/07/20 08/21/20 Stacey Briones, [facility] Lead Type Photography Supervisor Primary Care - CC 08/11/2012/30 Lesley Moody, [...] Resource Worker 02/09/21 02/09/21 Diana Desir, [facility] [address] [place] [address] Pharmacist Pharmacist 04/17/21 Rain Galaviz PA-C [address] [place] [address] [place] [address] Physician It Account Manager Dermatology 04/28/21 Summer Lara MD [address] [place] [address] Assigned OBGYN Provider 05/10/2105/23 Summer Lara MD [address] [place] [address] Assigned OBGYN Provider 05/31/21 Summer Lara MD [address] [place] [address] Assigned OBGYN Provider 05/24/2105/30 Tavia Wyatt MD [address] [place] [address] [facility] 07/14/21 Johnny Murillo MD [address] [place] [address] Assigned Musculoskeletal Provider 08/30/21 03/17/22 Erica Farrell APRN PHARMACY ANALYST [address] [place] [facility] [address] [place] [address] Nurse Practitioner Cardiovascular Disease 09/09/21 Teresita Bean [facility] [address] [place] [address] Pharmacist Pharmacist 09/24/21 09/29/21 Tavia Wyatt MD Assigned Surgical Provider 11/29/21 05/07/22 Diana Desir, [facility] [address] [place] [address] Assigned MTM Pharmacist 01/02/22 Rich Barrett MD [address] 610545 Physician Ophthalmology 01/21/22 Neil Kent MD 500 [place], [place] 477295 Dermatology 02/24/22 Roney Story DPM [id number] el?[facility] [address] [place], [place] 907757 Assigned Musculoskeletal Provider 03/20/22 08/13/22 Erica Farrell APRN PHARMACY ANALYST 1700 [place] [address] Assigned Heart and Vascular Provider 04/03/22 04/16/22 Diana Desir, [facility] 3033 [place] [address] Assigned MTM Pharmacist 04/07/22 Jelena David OD [address] [facility] [place] [address] Assigned Surgical Provider 05/08/22 10/08/22 Galo Burrell MD Assigned Heart and Vascular Provider 04/17/22 06/11/22 Livan Sharif MD [address] [place] [address] Cardiovascular Disease 05/14/22 Livan Sharif MD [address] [facility] [address] [place] [address] Assigned Heart and Vascular Provider 06/12/22 07/23/22 Catherine Cm MD [address] [facility] [address] [place] [address] Cardiovascular Disease 07/21/22 Valery Veronica, PA-C [address] [place] [address] 939555 Physician It Account Manager Dermatology 07/21/22 Catherine Cm MD [address] [facility] [place] [address] Assigned Heart and Vascular Provider 07/24/22 11/05/22 Johnny Murillo MD [address] [place] [address] 877284 Assigned Musculoskeletal Provider 08/14/22 10/08/22 Brea Quinn APRN PHARMACY ANALYST [address] [place] [address] 135675 Nurse Practitioner Dermatology 09/21/22 Brea Quinn APRN PHARMACY ANALYST [address] [place] [address] [place] 124662 Assigned Surgical Provider 10/09/22 [place] [address] [place] [address] Assigned Musculoskeletal Provider 10/09/22 Livan Sharif MD [address] [place] [address] Assigned Heart and Vascular Provider 11/06/22 11/12/22 Catherine Cm MD [address] [place] [address] Assigned Heart and Vascular Provider 11/13/22 05/27/23 Sydnie Martinez RN Personal Advocate & Liaison (PAL) Family Medicine 03/28/23 07/31/23 Alfonso Renteria MD [address] [facility] 200 [place] [address] Assigned Neuroscience Provider 04/02/23 Cheng Todd PA-C [address] [place] [address] Assigned PCP 04/30/23 07/15/23 Radha Lomeli APRN PHARMACY ANALYST [address] [place] [address] Assigned Heart and Vascular Provider 05/28/23 Jelena David OD [address] [facility] [place] [address] Ophthalmology 06/15/23 Pao Joseph, VJ Personal Advocate & Liaison (PAL) Nurse 08/01/23 11/07/23 Esha Grimm PA-C [address] [place] [phone] Assigned PCP 07/16/23 Valery Veronica PA-C [address] [place] [address] Physician It Account Manager Dermatology 09/19/23 Rey Tay MD [address] [place] [address] MD Gastroenterology 09/20/23 Rocky Zepeda DO [address] [place] [address] Physician Gastroenterology 09/20/23 Philip Dumont MD [address] [place] [address] Physician Ophthalmology 09/22/23 Meredith Carrera PA-C [address] [place] [address] Assigned Gastroenterology Provider 11/01/23 Neil Kent MD [address] [place] [address] Dermatology 11/02/23 [place] [address] [place] [address] Neurological Surgery 12/26/23 documented as of this encounter
--- OUTSIDE RECORDS SUMMARY | 2024-01-07 18:18 | XMS_ITS | Encounter Summary ---
Author Organization [facility] Address [address] [place] [address] Care Team Providers Care Pipe Insulator Name Role Phone Lita Oseguera Unavailable Unavailable Marija Edgar APRN POULTRY FARMWORKER Primary Care Provider Chanelle Gutierrez APRN CNM Unavailab le Kyara De La Fuente RN Unavailable [phone] Marija Edgar APRN POULTRY FARMWORKER Unavailable Unavail able Mynor Broussard MD Unavailable [phone] Keisha Dotson MD Unavailable Stacey Briones DRY HEAT ROOM ATTENDANT Unavailable Lesley Moody CHW Unavailable Mary Mejia Unavailable Unavailable Lita Oseguera Unavailable Unavailable Galo Burrell MD Unavailable Unavailable Cristina Wood Unavailable Lesley Moody CHW Unavailable Meredith Bedoya Unavailable Unavailable Cristina Wood Unavailable Diana Desir [facility] Unavailable [phone] Rain Galaviz PA-C Unavailable Summer Lara MD Unavailable [phone] Summer Lara MD Unavailable [phone] Summer Lara MD Unavailable + [phone] Tavia Wyatt MD Unavailable Unavailable SemJohnny mckeon MD Unavailable +1- Erica Farrell INJURY PREVENTION COORDINATOR POULTRY FARMWORKER Unavailable + BeanTeresita H Unavailable Tavia Wyatt MD Unavailable Unavailable Diana Desir [facility] Unavailable [phone] Rich Barrett MD Unavailable + Neil Kent MD Unavailable + Roney Story DPM Unavailable [phone] Erica Farrell INJURY PREVENTION COORDINATOR POULTRY FARMWORKER Unavailable + Diana Desir [facility] Unavailable +[phone] Jelena David Radha Unavailable [phone] Galo Burrell MD Unavailable Unavailable Livan Sharif MD Unavailable + Livan Sharif MD Unavailable + Catherine Cm MD Unavailable + Valery Veronica PA-C Unavailable +[phone] Catherine Cm MD Unavailable + Johnny Murillo MD Unavailable +1- Brea Quinn INJURY PREVENTION COORDINATOR POULTRY FARMWORKER Unavailable +1- Brea Quinn INJURY PREVENTION COORDINATOR POULTRY FARMWORKER Unavailable [phone] Jose Francisco Johnson MD Unavailable + Livan Sharif MD Unavailable + Catherine Cm MD Unavailable + Sydnie Martinez RN Unavailable Unavailable Alfonso Renteria MD Unavailable [phone] Esha Grimm PA-C Primary Care Provider Cheng Todd PA-C Unavailable Radha Lomeli APRN POULTRY FARMWORKER Unavailable [phone] Jelena David OD Unavailable [phone] Pao Joseph RN Unavailable Unavailable Esha Grimm PAUcheC Unavailable [phone] Valery Veronica PA-C Unavailable [phone] Rey Tay MD Unavailable Rocky Zepeda DO Unavailable Philip Dumont MD Unavailable [phone] Meredith Carrera PA-C Unavailable [phone] Neil Kent MD Unavailable Juan Pablo Emmanuel MD Unavailable [phone] Reason for Visit * Reason Onset Date Comments MyChart Communication 09/02/2020 Encounter Details Date Type Department Care Team (Latest Contact Info) Description 09/02/2020 MyC Medical Advice [address] [address] Marija Edgar APRN POULTRY FARMWORKER MyChart Communication Social History Tobacco Use Types [...] How often do you attend chur or moravian services? More than 4 times per year [...] Answer Date Recorded PHQ-2 Score 0 08/12/2020 [facility] - [...] COVID-19? No / Unsure 09/05/2020 2:50 PM TELEGRAPH LINEMAN documented as of this encounter Miscellaneous Notes * Telephone Encounter - Ever Cardozo MA - 09/03/2020 10:34 AM CST Responded to patient as below. Ever Cardozo CMA ([facility]) GRAPH LINEMAN documented in this encounter Plan of Treatment Upcoming Encounters Date Type Department Care Team (Late st Contact Info) Description 01/09/2024 10:15 AM CDT Office Visit [facility] Neurology [facility] [address] [facility], [address] [place] [phone] Genny Hyman PA-C [facility] Epilepsy Care [address] [facility] [address] [place] [address] [place] [address] [facility] [address] [place] [address] 02/06/2024 10:00 AM CDT Office Visit [facility] [address] [phone] Neil Kent MD 500 [place], [place] 2129[address] 03/06/2024 3:00 PM CDT Office Visit [facility] Heart [facility] [address] [facility] [address] [place] [phone] Radha Lomeli, ARLENE POULTRY FARMWORKER [address] [place] [address] 03/07/2024 9:00 AM CDT Hospital Encounter [facility] [address] [place] [address] 5th [place] [phone] Rocky Zepeda DO [address] [place], [place] 408495 03/07/2024 9:00 AM CDT - 03/07/2024 9:30 AM CDT Surgery [facility] [address] [place] [address] 5th [place] [phone] Rocky Zepeda DO [address] [place], [place] [address] Esophagoscopy, gastroscopy, duodenoscopy (EGD), combined Scheduled Procedures [...] Out COVID-19 07/13/2021 07/13/2021 07/14/2021 3:04 PM TELEGRAPH LINEMAN Rule Out COVID-19 07/18/2021 07/18/2021 07/20/2021 1:56 PM TELEGRAPH LINEMAN COVID-19 07/18/2021 07/18/2021 08/08/2021 11:3 9 PM TELEGRAPH LINEMAN Rule Out COVID-19 12/18/2021 12/18/2021 12/19/2021 11:34 AM CDT Rule Out COVID-19 02/24/2022 02/24/2022 02/25/2022 1:08 PM CDT Rule Out COVID-19 04/26/2022 04/26/2022 04/26/2022 6:47 AM CDT Rule Out COVID-19 05/17/2022 05/17/2022 05/17/2022 10:20 PM TELEGRAPH LINEMAN Rule Out COVID-19 06/09/2022 06/09/2022 06/09/2022 9:35 AM TELEGRAPH LINEMAN COVID-19 06/09/2022 06/09/2022 06/30/2022 11:4 1 PM TELEGRAPH LINEMAN Rule Out COVID-19 11/10/2022 11/10/2022 11/11/2022 12:17 PM CDT Rule Out COVID-19 03/07/2023 03/07/2023 03/07/2023 1:20 PM CDT Rule Out COVID-19 12/26/2023 12/26/2023 12/26/2023 9:50 AM CDT Assessment Noted Time PHQ-9 Depression Total Score: 9 06/25/20 20 7:04 AM TELEGRAPH LINEMAN documented as of this encounter Care Teams Pipe Insulator Relationship Specialty Start Date End Date Marija Edgar APRN POULTRY FARMWORKER PCP - General Nurse Practitioner 04/30/20 04/14/23 Esha Grimm PA-C [address] [place] [phone] PCP - General Family Medicine 05/04/23 Lita Oseguera Personal Advocate & Liaison (PAL) 02/28/20 03/27/23 [place] [address] 34[facility] 200 [place] [address] Assigned OBGYN Provider 05/02/2005/09 Kyara De La Fuente, RN Specialty Analytical Sciences Director Neurology 06/04/20 03/05/21 Marija Edgar APRN POULTRY FARMWORKER Assigned PCP 06/08/20 04/29/23 Mynor Broussard MD 6363 [facility] 500 [place], [place] [address] Assigned Surgical Provider 06/01/20 11/28/21 Keisha Dotson MD [address] [place], [place] [address] Assigned Neuroscience Provider 06/04/20 04/01/23 Stacey Briones, MARIANGEL Lead Analytical Sciences Director Primary Care - CC 08/11/2012/30 Lesley Moody, [facility] Community Health Worker 08/11/2010/01 Nikiatimothy Mary Financial Resource Worker 09/02/20 10/06/20 Lita Oseguera Personal Advocate & Liaison (PAL) Family Medicine 09/10/20 09/21/20 Galo Burrell MD Assigned Heart and Vascular Provider 10/05/20 04/02/22 Cristina Wood Financial Resource Worker 10/07/20 10/14/20 Lesley Moody, [facility] Community Health Worker 10/23/2012/30 Meredith Bedoya Financial Resource Worker 10/23/20 11/23/20 Cristina Wood Financial Resource Worker 02/09/21 02/09/21 [facility] [address] [place] [address] Pharmacist Pharmacist 04/17/21 Rain Galaviz PA-C [address] [place] [address] [address] [place], [place] [id number] Physician Graduate School Dean Dermatology 04/28/21 Summer Lara MD [address] [place] [address] [id number] Assigned OBGYN Provider 05/10/2105/23 Summer Lara MD [address] [place] [address] 353324 Assigned OBGYN Provider 05/31/21 2 Summer Lara MD [address] [place] [address] Assigned OBGYN Provider 05/24/2105/30 Tavia Wyatt MD [address] [place] [address] Dermatology 07/14/21 Johnny Murillo MD [address] [place] [address] Assigned Musculoskeletal Provider 08/30/21 03/17/22 Erica Farrell APRN POULTRY FARMWORKER 6405 [facility] [address] [place] [address] Nurse Practitioner Cardiovascular Disease 09/09/21 Teresita Bean, [facility] [address] [place], [place] [phone] Pharmacist Pharmacist 09/24/21 09/29/21 Tavia Wyatt MD Assigned Surgical Provider 11/29/21 05/07/22 [facility] 3033 [place] [address] Assigned MTM Pharmacist 01/02/22 Rich Barrett MD 516 [facility] 9A [place], [place] 4[address] Physician Ophthalmology 01/21/22 Neil Kent MD [address] [place] [address] 410335 Dermatology 02/24/22 Roney Story DPM [address] [facility] [address] [place] [address] Assigned Musculoskeletal Provider 03/20/22 08/13/22 Erica Farrell APRN POULTRY FARMWORKER 1700 [place] [address] Assigned Heart and Vascular Provider 04/03/22 04/16/22 [facility] 3033 [place], [place] 257946 Assigned MTM Pharmacist 04/07/22 Jelena David OD [address] [place] [address] Assigned Surgical Provider 05/08/22 10/08/22 Galo Burrell MD Assigned Heart and Vascular Provider 04/17/22 06/11/22 Livan Sharif MD [address] [place] [address] Cardiovascular Disease 05/14/22 Livan Sharif MD [address] [place] [address] Assigned Heart and Vascular Provider 06/12/22 07/23/22 Catherine Cm MD [address] [place] 974545 Cardiovascular Disease 07/21/22 Valery Veronica, PAUcheC [address] [place] [address] Physician Graduate School Dean Dermatology 07/21/22 Catherine Cm MD [address] [place] [address] Assigned Heart and Vascular Provider 07/24/22 11/05/22 Johnny Murillo MD [address] [place] [address] Assigned Musculoskeletal Provider 08/14/22 10/08/22 Brea Quinn APRN POULTRY FARMWORKER [address] [place] [address] 345145 Nurse Practitioner Dermatology 09/21/22 Brea Quinn APRN POULTRY FARMWORKER [address] [place] [address] Assigned Surgical Provider 10/09/22 [place] [address] [address] Assigned Musculoskeletal Provider 10/09/22 Livan Sharif MD [address] [place] [address] Assigned Heart and Vascular Provider 11/06/22 11/12/22 Catherine Cm MD [address] [place] 4[address]95 Assigned Heart and Vascular Provider 11/13/22 05/27/23 Sydnie Martinez RN Personal Advocate & Liaison (PAL) Family Medicine 03/28/23 07/31/23 Alfonso Renteria MD [address] [facility] 200 [place] [address] Assigned Neuroscience Provider 04/02/23 Cheng Todd PA-C [address] [place] [address] Assigned PCP 04/30/23 07/15/23 Radha Lomeli APRN POULTRY FARMWORKER 6405 [facility] [address] [place] [address] Assigned Heart and Vascular Provider 05/28/23 Jelena David OD [address] [place] [address] Ophthalmology 06/15/23 Pao Joseph RN Personal Advocate & Liaison (PAL) Nurse 08/01/23 11/07/23 Esha Grimm PA-C [address] [place] [address] Assigned PCP 07/16/23 Valery Veronica PA-C [address] [place] [address] [phone] Physician Graduate School Dean Dermatology 09/19/23 Rey Tay MD [address] [place] [address] [phone] Gastroenterology 09/20/23 Rocky Zepeda DO [address] [place] [address] 496535 Physician Gastroenterology 09/20/23 Philip Dumont MD 516 [place], [place] 858955 Physician Ophthalmology 09/22/23 Meredith Carrera PA-C [address] [place] [address] Assigned Gastroenterology Provider 11/01/23 Neil Kent MD [address] 898810 Dermatology 11/02/23 [place] [address] [place] [address] Neurological Surgery 12/26/23 documented as of this encounter
--- OUTSIDE RECORDS SUMMARY | 2024-01-07 18:18 | XMS_ITS | Encounter Summary ---
Author Organization [facility] Address [address] [place] [id number] Care Team Providers Care Extractive Metallurgist Name Role Phone Lita Oseguera Unavailable Unavailable Marija Edgar APRN ACETALDEHYDE CONVERTER OPERATOR Primary Care Provider Chanelle Gutierrez APRN CNM Unavailab le Kyara De La Fuente RN Unavailable [phone] Marija Edgar APRN ACETALDEHYDE CONVERTER OPERATOR Unavailable Unavail able Mynor Broussard MD Unavailable [phone] Keisha Dotson MD Unavailable [phone] Stacey Briones ENDOSCOPY TECH Unavailable Lesley Modoy CHW Unavailable [phone] Mary Mejia Unavailable Unavailable Lita Oseguera Unavailable Unavailable Galo Burrell MD Unavailable Unavailable Cristina Wood Unavailable Lesley Moody CHW Unavailable [phone] Meredith Bedoya Unavailable Unavailable Cristina Wood Unavailable Diana Desir [facility] Unavailable Rain Galaviz PA-C Unavailable Summer Lara MD Unavailable [phone] Summer Lara MD Unavailable [phone] Summer Lara MD Unavailable + [phone] Tavia Wyatt MD Unavailable Unavailable SemJohnny mckeon MD Unavailable +1- Erica Farrell [employer] ACETALDEHYDE CONVERTER OPERATOR Unavailable + BeanTeresita H Unavailable Tavia Wyatt MD Unavailable Unavailable Diaan Desir [facility] Unavailable [phone] Rich Barrett MD Unavailable + Neil Kent MD Unavailable + Roney Story DPM Unavailable [phone] Erica Farrell [employer] ACETALDEHYDE CONVERTER OPERATOR Unavailable + Diana Desir [facility] Unavailable [phone] Jelena David Radha Unavailable [phone] Galo Burrell MD Unavailable Unavailable Livan Sharif MD Unavailable + Livan Sharif MD Unavailable + Catherine Cm MD Unavailable + Valery Veronica PA-C Unavailable +[phone] Catherine Cm MD Unavailable + Johnny Murillo MD Unavailable +1- Brea Quinn [employer] ACETALDEHYDE CONVERTER OPERATOR Unavailable +1- Brea Quinn [employer] ACETALDEHYDE CONVERTER OPERATOR Unavailable [phone] Jose Francisco Johnson MD Unavailable + Livan Sharif MD Unavailable + Catherine Cm MD Unavailable + Sydnie Martinez RN Unavailable Unavailable Alfonso Renteria MD Unavailable [phone] Esha Grimm PA-C Primary Care Provider [phone] Cheng Todd PA-C Unavailable Radha Lomeli APRN ACETALDEHYDE CONVERTER OPERATOR Unavailable [phone] Jelena David OD Unavailable Pao Joseph RN Unavailable Unavailable Esha GrimmC Unavailable [phone] Valery Veronica PA-C Unavailable [phone] Rey Tay MD Unavailable Rocky Zepeda DO Unavailable Philip Dumont MD Unavailable [phone] Meredith Carrera-C Unavailable [phone] Neil Kent MD Unavailable Juan Pablo Emmanuel MD Unavailable [phone] Reason for Visit * Reason Onset Date Comments Patient/info Update 08/31/2020 appointment request Encounter Details Date Type Department Care Team (Late st Contact Info) Description 08/31/2020 [facility] [address] [address] Marija Edgar APRN CNP Patient/info [...] How often do you attend chur or jew services? More than 4 times per year [...] Answer Date Recorded PHQ-2 Score 0 08/12/2020 [facility] - Occupational [...] COVID-19? No / Unsure 09/03/2020 12:11 PM ASSET COORDINATOR documented as of this encounter Miscellaneous Notes * Telephone Encounter - Maryjane Mccallum RN - 09/01/2020 7:21 AM ASSET COORDINATOR Patient sent message requesting office visit with [...] Office Visit with Marija Edgar APRN CNP [facility] ([facility] ) [address] [facility] [phone] Maryjane Mccallum Registered Nurse [facility] T COORDINATOR documented in this encounter Plan of Treatment Upcoming Encounters Date Type Department Care Team (Late st Contact Info) Description 01/09/2024 10:15 AM CDT Office Visit [facility] Neurology [facility] [address] [facility], [address] [place] [phone] Genny Hyman PA-C [facility] Epilepsy [facility] [address] [facility] [address] [place], [place] [address] [place] [address] [facility] [address] [place], [place] [address] 02/06/2024 10:00 AM CDT Office Visit [facility] [address] [phone] Neil Kent MD [address] [place] [address] 03/06/2024 3:00 PM CDT Office Visit [facility] Heart [facility] [address] [facility] [address] [place] [phone] Radha Lomeli APRN CNP [address] [facility] [address] [place] [address] 03/07/2024 9:00 AM CDT Hospital Encounter [address] [place] [address] Rocky Zepeda DO [address] [place] [address] 03/07/2024 9:00 AM CDT - 03/07/2024 9:30 AM CDT Surgery [facility] [address] [facility] [address] [place] [phone] Rocky Zepeda, DO [address] [place] [address] Esophagoscopy, gastroscopy, duodenoscopy (EGD), combined Scheduled Procedures [...] Out COVID-19 07/13/2021 07/13/2021 07/14/2021 3:04 PM ASSET COORDINATOR Rule Out COVID-19 07/18/2021 07/18/2021 07/20/2021 1:56 PM ASSET COORDINATOR COVID-19 07/18/2021 07/18/2021 08/08/2021 11:3 9 PM ASSET COORDINATOR Rule Out COVID-19 12/18/2021 12/18/2021 12/19/2021 11:34 AM CDT Rule Out COVID-19 02/24/2022 02/24/2022 02/25/2022 1:08 PM CDT Rule Out COVID-19 04/26/2022 04/26/2022 04/26/2022 6:47 AM CDT Rule Out COVID-19 05/17/2022 05/17/2022 05/17/2022 10:20 PM ASSET COORDINATOR Rule Out COVID-19 06/09/2022 06/09/2022 06/09/2022 9:35 AM ASSET COORDINATOR COVID-19 06/09/2022 06/09/2022 06/30/2022 11:4 1 PM ASSET COORDINATOR Rule Out COVID-19 11/10/2022 11/10/2022 11/11/2022 12:17 PM CDT Rule Out COVID-19 03/07/2023 03/07/2023 03/07/2023 1:20 PM CDT Rule Out COVID-19 12/26/2023 12/26/2023 12/26/2023 9:50 AM CDT Assessment Noted Time PHQ-9 Depression Total Score: 9 06/25/20 20 7:04 AM ASSET COORDINATOR documented as of this encounter Care Teams Extractive Metallurgist Relationship Specialty Start Date End Date Marija Edgar APRN ACETALDEHYDE CONVERTER OPERATOR PCP - General Nurse Practitioner 04/30/20 04/14/23 Esha Grimm PAUcheC [address] [place] [phone] PCP - General Family Medicine 05/04/23 Lita Oseguera Personal Advocate & Liaison (PAL) 02/28/20 03/27/23 Chanelle Mccann APRN CNM [address] [place] [address] [address] [place] [address] Assigned OBGYN Provider 05/02/2005/09 Kyara De La Fuente, RN Specialty Software Integration Developer Neurology 06/04/20 03/05/21 Marija Egdar APRN ACETALDEHYDE CONVERTER OPERATOR Assigned PCP 06/08/20 04/29/23 Mynor Broussard MD [address] [place] [address] Assigned Surgical Provider 06/01/20 11/28/21 Keisha Dotson MD [address] [place] [address] Assigned Neuroscience Provider 06/04/20 04/01/23 Stacey Briones, [facility] Lead Software Integration Developer Primary Care - CC 08/11/2012/30 Lesley Moody, [facility] Community Health Worker 08/11/2010/01 Mary Mejia Financial Resource Worker 09/02/20 10/06/20 Lita Oseguera Personal Advocate & Liaison (PAL) Family Medicine 09/10/20 09/21/20 Galo Burrell MD Assigned Heart and Vascular Provider 10/05/20 04/02/22 Cristina Wood Financial Resource Worker 10/07/20 10/14/20 Lesley Moody, [facility] Community Health Worker 10/23/2012/30 Meredith Bedoya Financial Resource Worker 10/23/20 11/23/20 Cristina Wood Financial Resource Worker 02/09/21 02/09/21 Diana Desir, [facility] [address] [place] [address] Pharmacist Pharmacist 04/17/21 Rain Galaviz PA-C [address] [place] [address] [address] [place] [address] Physician Multimedia Producer Dermatology 04/28/21 Summer Lara MD [address] [place] [address] Assigned OBGYN Provider 05/10/2105/23 Summer Lara MD [address] [place] [address] Assigned OBGYN Provider 05/31/21 Summer Lara MD [address] [place] [address] Assigned OBGYN Provider 05/24/2105/30 Tavia Wyatt MD [address] [place] [address] Dermatology 07/14/21 Johnny Murillo MD [address] [place] [address] Assigned Musculoskeletal Provider 08/30/21 03/17/22 Erica Farrell APRN ACETALDEHYDE CONVERTER OPERATOR [address] [facility] [address] [place] [address] Nurse Practitioner Cardiovascular Disease 09/09/21 Teresita Bean [facility] [address] [place] [address] Pharmacist Pharmacist 09/24/21 09/29/21 Tavia Wyatt MD Assigned Surgical Provider 11/29/21 05/07/22 Diana Desir, [facility] [address] [place] [address] Assigned MTM Pharmacist 01/02/22 Rich Barrett MD [address] [address] Physician Ophthalmology 01/21/22 Neil Kent MD [address] [place], [place] [phone] Dermatology 02/24/22 Roney Story DPM [address] [facility] [address] [place], [place] [address] Assigned Musculoskeletal Provider 03/20/22 08/13/22 Erica Farrell APRN ACETALDEHYDE CONVERTER OPERATOR [address] [place] [address] Assigned Heart and Vascular Provider 04/03/22 04/16/22 Diana Desir, [facility] [address] [place] [address] Assigned MTM Pharmacist 04/07/22 Jelena David OD [address] [facility] [place] [address] Assigned Surgical Provider 05/08/22 10/08/22 Galo Burrell MD Assigned Heart and Vascular Provider 04/17/22 06/11/22 Livan Sharif MD [address] [facility] [address] [place] [address] Cardiovascular Disease 05/14/22 Livan Sharif MD [address], [facility] [address] [place] [address] Assigned Heart and Vascular Provider 06/12/22 07/23/22 Catherine Cm MD [address] [facility] [place] [address] Cardiovascular Disease 07/21/22 Valery Veronica, PA-C [address] [place] [address] Physician Multimedia Producer Dermatology 07/21/22 Catherine Cm MD [address] [facility] [place] 38[address] Assigned Heart and Vascular Provider 07/24/22 11/05/22 Johnny Murillo MD [address] [address] Assigned Musculoskeletal Provider 08/14/22 10/08/22 Brea Quinn APRN ACETALDEHYDE CONVERTER OPERATOR [address] [place] [address] Nurse Practitioner Dermatology 09/21/22 Brea Quinn APRN ACETALDEHYDE CONVERTER OPERATOR [address] [place] [address] [place] [id number] Assigned Surgical Provider 10/09/22 [place] [address] [place] [address] Assigned Musculoskeletal Provider 10/09/22 Livan Sharif MD [address] [place], [place] [address] Assigned Heart and Vascular Provider 11/06/22 11/12/22 Catherine Cm MD [address] [place] [address] Assigned Heart and Vascular Provider 11/13/22 05/27/23 Sydnie Martinez RN Personal Advocate & Liaison (PAL) Family Medicine 03/28/23 07/31/23 Alfonso Renteria MD [address] [facility] [address] [place] [address] Assigned Neuroscience Provider 04/02/23 Cheng Tdod PA-C [address] [place] [id number] Assigned PCP 04/30/23 07/15/23 Radha Lomeli APRN ACETALDEHYDE CONVERTER OPERATOR [address] [place] [address] Assigned Heart and Vascular Provider 05/28/23 Jelena David OD [address] [facility] [place] [address] Ophthalmology 06/15/23 Pao Joseph, VJ Personal Advocate & Liaison (PAL) Nurse 08/01/23 11/07/23 Esha Grimm PAUcheC [address] [place] [address] Assigned PCP 07/16/23 Valery Veronica PAUcheC [address] [place] [address] Physician Multimedia Producer Dermatology 09/19/23 Rey Tay MD [address] [place] [address] MD Gastroenterology 09/20/23 Rocky Zepeda DO [address] [place] [address] 423525 Physician Gastroenterology 09/20/23 Philip Dumont MD [address] [place] [address] Physician Ophthalmology 09/22/23 Meredith Carrera PA-C [address] [place] [address] Assigned Gastroenterology Provider 11/01/23 Neil Kent MD [address] [address] Dermatology 11/02/23 [place] [address] [place] [address] Neurological Surgery 12/26/23 documented as of this encounter
--- OUTSIDE RECORDS SUMMARY | 2024-01-07 18:19 | XMS_ITS | Encounter Summary ---
Author Organization [facility] [place] Address [address] [place] [address] Care Team Providers Care Travel Accommodation Inspector Name Role Phone Lita Oseguera Unavailable Unavailable Rakesh Cid PA-C Unavailable + [phone] Marija Edgar [employer]ER FIELD ATTENDANT Primary Care Provider Chanelle Gutierrez [employer]ER CNM Unavailab le Lesley Moody CHW Unavailable [phone] Kyara De La Fuente RN Unavailable [phone] Marija Edgar APRN FIELD ATTENDANT Unavailable Unavail able Mynor Broussard MD Unavailable [phone] Keisha Dotson MD Unavailable [phone] Mary Mejia Unavailable Unavailable Stacey Briones MEAT CUTTER APPRENTICE Unavailable [phone] Lesley Moody CHW Unavailable Mary Mejia Unavailable Unavailable Lita Oseguera Unavailable Unavailable Galo Burrell MD Unavailable Unavailable Cristina Wood Unavailable Lesley Moody CHW Unavailable Meredith Bedoya Unavailable Unavailable Cristina Wood Unavailable Diana Desir RPH Unavailable [phone] AnastaciaKailaRainsuki Paredes PA-C Unavailable [phone] Summer Lara MD Unavailable [phone] Summer Lara MD Unavailable [phone] Summer Lara MD Unavailable [phone] Tavia Wyatt MD Unavailable Unavailable Johnny Murillo MD Unavailable +[phone]- Erica Farrell [employer] FIELD ATTENDANT Unavailable + VikasTeresita [facility] Unavailable Tavia Wyatt MD Unavailable Unavailable Diana Desir [facility] Unavailable [phone] Rich Barrett MD Unavailable [phone] Neil Kent MD Unavailable Roney Story DPM Unavailable [phone] Erica Farrell [employer] FIELD ATTENDANT Unavailable Diana Desir [facility] Unavailable [phone] Jelena David OD Unavailable Galo Burrell MD Unavailable Unavailable Livan Sharif MD Unavailable + Livan Sharif MD Unavailable + Catherine Cm MD Unavailable + Valery Veronica PA-C Unavailable [phone] Catherine Cm MD Unavailable + Johnny Murillo MD Unavailable +[phone] Brea Quinn [employer]ER FIELD ATTENDANT Unavailable [phone] Brea Quinn [employer]ER FIELD ATTENDANT Unavailable [phone] Jose Francisco Johnson MD Unavailable Livan Sharif MD Unavailable Catherine Cm MD Unavailable + Sydnie Martinez RN Unavailable Unavailable Alfonso Renteria MD Unavailable [phone] Esha Grimm PA-C Primary Care Provider [phone] Cheng Todd PA-C Unavailable ArmaniRadha APRN FIELD ATTENDANT Unavailable [phone] Jelena David OD Unavailable Pao Joseph RN Unavailable Unavailable Esha Grimm PA-C Unavailable [phone] Valery Veronica PA-C Unavailable [phone] Rey Tay MD Unavailable Rocky Zepeda DO Unavailable Philip Dumont MD Unavailable [phone] Meredith Carrera PA-C Unavailable Neil Kent MD Unavailable Juan Pablo Emmanuel MD Unavailable Reason for Visit * Reason Onset Date Comments Referral 05/19/2020 Encounter Details Date Type Department Care Team (Late st Contact Info) Description 05/19/2020 Telephone [facility] Epilepsy [facility] [address], [address] [place] [address] Unknown Referral Social History Tobacco [...] COVID-19? No / Unsure 05/12/2020 9:03 AM BARBERING INSTRUCTOR documented as of this encounter Miscellaneous Notes * Telephone Encounter - Jolene Mcpherson - 05/19/2020 2:02 PM CST [facility] Phone Message May a detailed message be left on voicemail: yes Reason for Call: Appointment Intake Referring Provider Name: Marija Edgar APRN CNP in FAMILY PRACTICE Diagnosis and/or Symptoms: History of Seizures Being referred to [facility]. Please review. Thanks. Action Taken: Other: [facility] Travel Screening: Not Applicable ERING INSTRUCTOR documented in this encounter Plan of Treatment Upcoming Encounters Date Type Department Care Team (Late st Contact Info) Description 01/09/2024 10:15 AM CDT Office Visit [facility] Neurology [facility] - [address], [address] [place] [phone] Genny Hyman, PAUcheC [facility] Epilepsy Care [address] [facility] [address] [place], [place] [phone] [place] [address] [facility] [address] [place], [place] [address] 02/06/2024 10:00 AM CDT Office Visit [facility] [address] [phone] Neil Kent MD [address] [place], [place] [address] 03/06/2024 3:00 PM CDT Office Visit [facility] Heart [facility] [address] [facility] [address] [place] [phone] Radha Lomeli APRN FIELD ATTENDANT [address] [place] [address] 03/07/2024 9:00 AM CDT Hospital Encounter [facility] [place] [address] [place] [phone] Rocky Zepeda DO [address] [place], [place] [address] 03/07/2024 9:00 AM CDT - 03/07/2024 9:30 AM CDT Surgery [facility] OR [address] [phone] Rocky Zepeda DO [address] [place], [place] [phone] Esophagoscopy, gastroscopy, duodenoscopy (EGD), combined Scheduled Procedures Name Priority Associated Diagnoses Date/Ti pa ESOPHAGOGASTRODUODENOSCOPY Eosinophilic esophagitis Esophageal dysphagia 03/07/2024 9:00 AM CDT documented as of this encounter Visit Diagnoses Not on filedocumented in this encounter Additional Health Concerns Infection Onset Date Last Indicated Resolved Time Rule Out COVID-19 07/30/2020 07/30/2020 07/30/2020 7:11 PM BARBERING INSTRUCTOR Rule Out COVID-19 08/30/2020 08/30/2020 08/30/2020 5:05 PM BARBERING INSTRUCTOR Rule Out COVID-19 09/24/2020 09/24/2020 09/24/2020 9:24 AM CDT Rule Out COVID-19 11/05/2020 11/05/2020 11/06/2020 1:09 PM CDT Rule Out COVID-19 05/11/2021 05/11/2021 05/13/2021 10:18 AM CDT Rule Out COVID-19 07/13/2021 07/13/2021 07/14/2021 3:04 PM BARBERING INSTRUCTOR Rule Out COVID-19 07/18/2021 07/18/2021 07/20/2021 1:56 PM BARBERING INSTRUCTOR COVID-19 07/18/2021 07/18/2021 08/08/2021 11:3 9 PM BARBERING INSTRUCTOR Rule Out COVID-19 12/18/2021 12/18/2021 12/19/2021 11:34 AM CDT Rule Out COVID-19 02/24/2022 02/24/2022 02/25/2022 1:08 PM CDT Rule Out COVID-19 04/26/2022 04/26/2022 04/26/2022 6:47 AM CDT Rule Out COVID-19 05/17/2022 05/17/2022 05/17/2022 10:20 PM BARBERING INSTRUCTOR Rule Out COVID-19 06/09/2022 06/09/2022 06/09/2022 9:35 AM BARBERING INSTRUCTOR COVID-19 06/09/2022 06/09/2022 06/30/2022 11:4 1 PM BARBERING INSTRUCTOR Rule Out COVID-19 11/10/2022 11/10/2022 11/11/2022 12:17 PM CDT Rule Out COVID-19 03/07/2023 03/07/2023 03/07/2023 1:20 PM CDT Rule Out COVID-19 12/26/2023 12/26/2023 12/26/2023 9:50 AM CDT Assessment Noted Time PHQ-9 Depression Total Score: 6 08/28/19 21 7:05 AM BARBERING INSTRUCTOR documented as of this encounter Care Teams Travel Accommodation Inspector Relationship Specialty Start Date End Date Marija Edgar APRN CNP [address] [address] PCP - General Nurse Practitioner 04/30/20 04/14/23 Esha Grimm PA-C [address] [place] [phone] PCP - General Family Medicine 05/04/23 Lita Oseguera Personal Advocate & Liaison (PAL) 02/28/20 03/27/23 Rakesh Cid PA-C [address] [place] [address] Assigned PCP 03/02/20 06/07/20 Chanelle Mccann APRN CNM [address] [place] [address] [address] [place] [address] Assigned OBGYN Provider 05/02/2005/09 Lesley Moody, CHW Community Health Worker 05/30/2005/12 Kyara De La Fuente, RN Specialty Learning Center Instructor Neurology 06/04/20 03/05/21 Marija Edgar APRN FIELD ATTENDANT [address] [facility] [place] [address] Assigned PCP 06/08/20 04/29/23 Mynor Broussard MD [address] [facility] 500 [place] [address] Assigned Surgical Provider 06/01/20 11/28/21 Keisha Dotson MD [address] [place] [address] Assigned Neuroscience Provider 06/04/20 04/01/23 Mary Mejia Financial Resource Worker 08/07/20 08/21/20 Stacey Briones, [facility] Lead Learning Center Instructor Primary Care - CC 08/11/2012/30 Lesley Moody, W Community Health Worker 08/11/2010/01 Mary Mejia Financial Resource Worker 09/02/20 10/06/20 Lita Oseguera Personal Advocate & Liaison (PAL) Family Medicine 09/10/20 09/21/20 Galo Burrell MD Assigned Heart and Vascular Provider 10/05/20 04/02/22 Cristina Wood Financial Resource Worker 10/07/20 10/14/20 Lesley Moody, [facility] Community Health Worker 10/23/2012/30 Meredith Bedoya Financial Resource Worker 10/23/20 11/23/20 Cristina Wood Financial Resource Worker 02/09/21 02/09/21 Diana Desir, [facility] [address] [place], [place] [phone] Pharmacist Pharmacist 04/17/21 Rain Galaviz PA-C [address] [place] [address] [place] [address] Physician Roller Repairer Dermatology 04/28/21 Summer Lara MD [address] [place] [address] [phone] Assigned OBGYN Provider 05/10/2105/23 uSmmer Lara MD [address] [place] [address] [phone] Assigned OBGYN Provider 05/31/21 2 Summer Lara MD [address] [place] [address] [phone] Assigned OBGYN Provider 05/24/2105/30 Tavia Wyatt MD [address] [place] [address] Dermatology 07/14/21 Johnny Murillo MD [address] [place] [address] Assigned Musculoskeletal Provider 08/30/21 03/17/22 Erica Farrell APRN FIELD ATTENDANT [address] [facility] [address] [place] [address] Nurse Practitioner Cardiovascular Disease 09/09/21 Teresita Bean, [facility] [address] [place] [phone] Pharmacist Pharmacist 09/24/21 09/29/21 Tavia Wyatt MD Assigned Surgical Provider 11/29/21 05/07/22 [facility] [address] [place] [address] Assigned MTM Pharmacist 01/02/22 Rich Barrett MD [address] [facility] [address] [place] [address] Physician Ophthalmology 01/21/22 Neil Kent MD [address] [place] [address] Dermatology 02/24/22 Roney Story DPM [address] [facility] [address] [place] [address] Assigned Musculoskeletal Provider 03/20/22 08/13/22 Erica Farrell APRN FIELD ATTENDANT [address] [place] [address] Assigned Heart and Vascular Provider 04/03/22 04/16/22 Diana Desir [facility] [address] [place] [address] Assigned MTM Pharmacist 04/07/22 Jelena David OD [address] [place] [address] Assigned Surgical Provider 05/08/22 10/08/22 Galo Burrell MD Assigned Heart and Vascular Provider 04/17/22 06/11/22 Livan Sharif MD [address] [place] [address] Cardiovascular Disease 05/14/22 Livan Sharif MD [address] [place] [address] Assigned Heart and Vascular Provider 06/12/22 07/23/22 Catherine Cm MD [address] [place] [phone] Cardiovascular Disease 07/21/22 Valery Veronica PAUcheC [address] [place] [address] Physician Roller Repairer Dermatology 07/21/22 Catherine Cm MD [address] [place] [address] Assigned Heart and Vascular Provider 07/24/22 11/05/22 Johnny Murillo MD [facility] [address] [address] Assigned Musculoskeletal Provider 08/14/22 10/08/22 Brea Quinn APRN FIELD ATTENDANT [address] [place] [address] Nurse Practitioner Dermatology 09/21/22 Brea Quinn APRN FIELD ATTENDANT [address] [place] [address] [place] [phone] Assigned Surgical Provider 10/09/22 [place] [address] [address] Assigned Musculoskeletal Provider 10/09/22 Livan Sharif MD [address] [facility] [address] [place] [address] Assigned Heart and Vascular Provider 11/06/22 11/12/22 Catherine Cm MD [address] [facility] [address] [place] [address] Assigned Heart and Vascular Provider 11/13/22 05/27/23 JuanSydnie malik, VJ Personal Advocate & Liaison (PAL) Family Medicine 03/28/23 07/31/23 Alfonso Renteria MD [address] [facility] [address] [place], [place] [address] Assigned Neuroscience Provider 04/02/23 Cheng Todd PA-C [address] [place] [address] Assigned PCP 04/30/23 07/15/23 Radha Lomeli APRN FIELD ATTENDANT [address] [facility] [address] [place] [address] Assigned Heart and Vascular Provider 05/28/23 Jelena David OD [address] [place] [address] MD Ophthalmology 06/15/23 Pao Joseph, VJ Personal Advocate & Liaison (PAL) Nurse 08/01/23 11/07/23 Esha Grimm PA-C [address] [place] [phone] Assigned PCP 07/16/23 Valery Veronica PA-C [address] [place] [address] [phone] Physician Roller Repairer Dermatology 09/19/23 Rey Tay MD [address] [place] [address] 257785 Gastroenterology 09/20/23 Rocky Zepeda DO [address] [place] [address] 542155 Physician Gastroenterology 09/20/23 Philip Dumont MD [address] [place] [address] 489385 Physician Ophthalmology 09/22/23 Meredith Carrera PA-C [address] [place] [address] Assigned Gastroenterology Provider 11/01/23 Neil Kent MD [address] [phone] Dermatology 11/02/23 [place] [address]ZO [address] [place] [address] [phone] Neurological Surgery 12/26/23 documented as of this encounter
--- OUTSIDE RECORDS SUMMARY | 2024-01-07 18:19 | XMS_ITS | Encounter Summary ---
Author Organization [facility] Address [address] [place] [address] Care Team Providers Care Precision Filer Hand Name Role Phone Rakesh Cid PA-C Primary Care Provider Lita Oseguera Unavailable Unavailable Rakesh Cid PA-C Unavailable [phone] Lita Oseguera Unavailable Unavailable Marija Edgar APRN BARGEMAN Primary Care Provider Chanelle Gutierrez FLEXIBLE SHAFT WINDER CNM Unavailab le Lesley Moody CHW Unavailable Kyara De La Fuente RN Unavailable [phone] Marija Edgar APRN BARGEMAN Unavailable Unavail able Mynor Broussard MD Unavailable [phone] Keisha Dotson MD Unavailable [phone] Mary Mejia Unavailable Unavailable Stacey Briones DONOR TECHNICIAN Unavailable [phone] Lesley Moody CHW Unavailable Mary Mejia Unavailable Unavailable Lita Oseguera Unavailable Unavailable Galo Burrell MD Unavailable Unavailable Cristina Wood Unavailable Lesley Moody CHW Unavailable [phone] Meredith Bedoya Unavailable Unavailable Cristina Wood Unavailable DesirDiana [facility] Unavailable [phone] Rain Galaviz-C Unavailable [phone] Summer Lara MD Unavailable [phone] Summer Lara MD Unavailable [phone] Summer Lara MD Unavailable [phone] Tavia Wyatt MD Unavailable Unavailable Johnny Murillo MD Unavailable [phone] Erica Farrell APRN BARGEMAN Unavailable + Teresita Bean [facility] Unavailable Tavia Wyatt MD Unavailable Unavailable Diana Desir [facility] Unavailable [phone] Rich Barrett MD Unavailable [phone] Neil Kent MD Unavailable Roney Story DPM Unavailable Erica Farrell APRN BARGEMAN Unavailable + Diana Desir [facility] Unavailable [phone] Jelena David OD Unavailable Galo Burrell MD Unavailable Unavailable Livan Sharif MD Unavailable + Livan Sharif MD Unavailable + Catherine Cm MD Unavailable + Valery Veronica-C Unavailable [phone] Catherine Cm MD Unavailable + Johnny Murillo MD Unavailable [phone] Brea Quinn APRN BARGEMAN Unavailable [phone] [place], Brea P FLEXIBLE SHAFT WINDER BARGEMAN Unavailable Jose Francisco Johnson MD Unavailable Livan Sharif MD Unavailable Catherine Cm MD Unavailable + Sydnie Martinez RN Unavailable Unavailable Alfonso Renteria MD Unavailable [phone] Esha Grimm PA-C Primary Care Provider Cheng Todd PA-C Unavailable Radha Lomeli FLEXIBLE SHAFT WINDER BARGEMAN Unavailable Jelena David OD Unavailable Pao Joseph RN Unavailable Unavailable Esha Grimm PA-C Unavailable [phone] Valery Veronica PA-C Unavailable Rey Tay MD Unavailable Rocky Zepeda DO Unavailable Philip Dumont MD Unavailable Meredith Carrera PA-C Unavailable Neil Kent MD Unavailable Juan Pablo Emmanuel MD Unavailable [phone] Encounter Details Date Type Department Care Team (Late st Contact Info) Description 04/28/2020 [facility] Medical Advice [address] [address] Rakesh Cid PA-C [address] [place] [address] Social History Tobacco Use Types [...] CDT Office Visit [facility] [address] [facility], [address] [place] [phone] Genny Hyman PA-C [facility] Epilepsy [facility] Emergency Department [address] [facility] [address] [place], [place] [address] [place] [address] [facility] [address] [place], [place] [address] 02/06/2024 10:00 AM CDT Office Visit [facility] [address] [phone] Neil Kent MD [address] [place], [place] [address] 03/06/2024 3:00 PM CDT Office Visit [facility] [address] [facility] [address] [place] [phone] Radha Lomeli APRN BARGEMAN [address] [facility] [address] [place], [place] [address] 03/07/2024 9:00 AM CDT Hospital Encounter [facility] [address] [facility] [address] [place] [address] Rocky Zepeda DO [address] [place], [place] [address] 03/07/2024 9:00 AM CDT - 03/07/2024 9:30 AM CDT [facility] [address] [place] [address] [address] [place] [phone] Rocky Zepeda DO [address] [place] [address] Esophagoscopy, gastroscopy, duodenoscopy (EGD), combined Scheduled Procedures Name Priority Associated Diagnoses Date/Ti ar ESOPHAGOGASTRODUODENOSCOPY Eosinophilic esophagitis Esophageal dysphagia 03/07/2024 9:00 AM CDT documented as of this encounter Visit Diagnoses Not on filedocumented in this encounter Additional Health Concerns Infection Onset Date Last Indicated Resolved Time Rule Out COVID-19 07/30/2020 07/30/2020 07/30/2020 7:11 PM CHENILLE MACHINE OPERATOR Rule Out COVID-19 08/30/2020 08/30/2020 08/30/2020 5:05 PM CHENILLE MACHINE OPERATOR Rule Out COVID-19 09/24/2020 09/24/2020 09/24/2020 9:24 AM CDT Rule Out COVID-19 11/05/2020 11/05/2020 11/06/2020 1:09 PM CDT Rule Out COVID-19 05/11/2021 05/11/2021 05/13/2021 10:18 AM CDT Rule Out COVID-19 07/13/2021 07/13/2021 07/14/2021 3:04 PM CHENILLE MACHINE OPERATOR Rule Out COVID-19 07/18/2021 07/18/2021 07/20/2021 1:56 PM CHENILLE MACHINE OPERATOR COVID-19 07/18/2021 07/18/2021 08/08/2021 11:3 9 PM CHENILLE MACHINE OPERATOR Rule Out COVID-19 12/18/2021 12/18/2021 12/19/2021 11:34 AM CDT Rule Out COVID-19 02/24/2022 02/24/2022 02/25/2022 1:08 PM CDT Rule Out COVID-19 04/26/2022 04/26/2022 04/26/2022 6:47 AM CDT Rule Out COVID-19 05/17/2022 05/17/2022 05/17/2022 10:20 PM CHENILLE MACHINE OPERATOR Rule Out COVID-19 06/09/2022 06/09/2022 06/09/2022 9:35 AM CHENILLE MACHINE OPERATOR COVID-19 06/09/2022 06/09/2022 06/30/2022 11:4 1 PM CHENILLE MACHINE OPERATOR Rule Out COVID-19 11/10/2022 11/10/2022 11/11/2022 12:17 PM CDT Rule Out COVID-19 03/07/2023 03/07/2023 03/07/2023 1:20 PM CDT Rule Out COVID-19 12/26/2023 12/26/2023 12/26/2023 9:50 AM CDT Assessment Noted Time PHQ-9 Depression Total Score: 12 020 2:40 PM CDT documented as of this encounter Care Teams Precision Filer Hand Relationship Specialty Start Date End Date Rakesh Cid PA-C PCP - General Physician Supervisor [employer] - Medical 05/14/19 04/29/20 Marija Edgar APRN CNP [address] [address] PCP - General Nurse Practitioner 04/30/20 04/14/23 Esha Grimm PA-C [address] [place] [phone] PCP - General Family Medicine 05/04/23 Lita Oseguera Personal Advocate & Liaison (PAL) 02/28/20 03/27/23 Rakesh Cid PA-C [address] [place] [address] Assigned PCP 03/02/20 06/07/20 Lita Oseguera Personal Advocate & Liaison (PAL) 04/07/20 04/29/20 Chanelle Mccann APRN CNM [address] [place], [facility] [address] [place] [address] Assigned OBGYN Provider 05/02/2005/09 Lesley Moody, CHW Community Health Worker 05/30/2005/12 Kyara De La Fuente, VJ Specialty Environmental Planning Engineer Neurology 06/04/20 03/05/21 Marija Edgar APRN BARGEMAN [address] [facility] [place] [address] Assigned PCP 06/08/20 04/29/23 Mynor Broussard MD [address] [facility] 500 [place] [address] Assigned Surgical Provider 06/01/20 11/28/21 Keisha Dotson MD [address]09 [place], [place] [address] Assigned Neuroscience Provider 06/04/20 04/01/23 Mary Mejia Financial Resource Worker 08/07/20 08/21/20 Stacey Briones, DONOR TECHNICIAN Lead Environmental Planning Engineer Primary Care - CC 08/11/2012/30 Lesley Moody, CHW Community Health Worker 08/11/2010/01 Mary Mejia Financial Resource Worker 09/02/20 10/06/20 Lita Oseguera Personal Advocate & Liaison (PAL) Family Medicine 09/10/20 09/21/20 Galo Burrell MD Assigned Heart and Vascular Provider 10/05/20 04/02/22 Cristina Wood Financial Resource Worker 10/07/20 10/14/20 Lesley Moody, [facility] Community Health Worker 10/23/2012/30 Meredith Bedoya Financial Resource Worker 10/23/20 11/23/20 Cristina Wood Financial Resource Worker 02/09/21 02/09/21 Diana Desir, [facility] [address] [place] [address] Pharmacist Pharmacist 04/17/21 Rain Galaviz PA-C [address] [place] [address] [address] [place], [place] [phone] Physician Supervisor [employer] Dermatology 04/28/21 Summer Lara MD [address] [place] [phone] Assigned OBGYN Provider 05/10/2105/23 Summer Lara MD [address] [place] [address]454 Assigned OBGYN Provider 05/31/21 2 Summer Lara MD [address] [place] [address] [phone] Assigned OBGYN Provider 05/24/2105/30 Tavia Wyatt MD [address] [place] [address] Dermatology 07/14/21 Johnny Murillo MD [address] [place] [address] Assigned Musculoskeletal Provider 08/30/21 03/17/22 Erica Farrell APRN BARGEMAN [address] [facility] [address] [place] [address] Nurse Practitioner Cardiovascular Disease 09/09/21 Teresita Bean, [facility] [address] [place] [phone] Pharmacist Pharmacist 09/24/21 09/29/21 Tavia Wyatt MD Assigned Surgical Provider 11/29/21 05/07/22 [facility] [address] [place] [address] Assigned MTM Pharmacist 01/02/22 Rich Barrett MD [address] [facility] [address] [place], [place] [address] Physician Ophthalmology 01/21/22 Neil Kent MD [address] [place] [address] Dermatology 02/24/22 Roney Story DPM [address] [facility] [address] [place] [address] Assigned Musculoskeletal Provider 03/20/22 08/13/22 Erica Farrell APRN BARGEMAN [address] [place] [address] Assigned Heart and Vascular Provider 04/03/22 04/16/22 Diana Desir, [facility] [address] [place] [address] Assigned MTM Pharmacist 04/07/22 Jelena David OD [address] [place] [address] Assigned Surgical Provider 05/08/22 10/08/22 Galo Burrell MD Assigned Heart and Vascular Provider 04/17/22 06/11/22 Livan Sharif MD [address] [place] [address] Cardiovascular Disease 05/14/22 Livan Sharif MD [address] [place] [address] Assigned Heart and Vascular Provider 06/12/22 07/23/22 Catherine Cm MD [address] [place] [address] Cardiovascular Disease 07/21/22 Valery Veronica PA-C [address] [place], [place] [address] Physician Supervisor [employer] Dermatology 07/21/22 Catherine Cm MD [address] [place] [phone] Assigned Heart and Vascular Provider 07/24/22 11/05/22 Johnny Murillo MD [facility] [address] [address] Assigned Musculoskeletal Provider 08/14/22 10/08/22 Brea Quinn APRN BARGEMAN [address] [place] [address] Nurse Practitioner Dermatology 09/21/22 rBea Quinn APRN BARGEMAN [address] [place] [address] Assigned Surgical Provider 10/09/22 [place] [address] [address] Assigned Musculoskeletal Provider 10/09/22 Livan Sharif MD [address] [facility] [address] [place] [address] Assigned Heart and Vascular Provider 11/06/22 11/12/22 Catherine Cm MD [address] [facility] [address] [place], [place] [address] Assigned Heart and Vascular Provider 11/13/22 05/27/23 Sydnie Martinez RN Personal Advocate & Liaison (PAL) Family Medicine 03/28/23 07/31/23 Alfonso Renteria MD [address] [facility] 200 [place], [place] [address] Assigned Neuroscience Provider 04/02/23 Cheng Todd PA-C [address] [place] [address] [phone] Assigned PCP 04/30/23 07/15/23 Radha Lomeli APRN BARGEMAN [address] [facility] [address] [place], [place] [address] Assigned Heart and Vascular Provider 05/28/23 Jelena David OD [address] [facility] [address] [place] [id number] MD Ophthalmology 06/15/23 Pao Joseph, VJ Personal Advocate & Liaison (PAL) Nurse 08/01/23 11/07/23 Esha Grimm PA-C [address] [place] [phone] Assigned PCP 07/16/23 Valery Veronica PA-C [address] [place] [phone] Physician Supervisor [employer] Dermatology 09/19/23 Rey Tay MD [address] [place] [address] Gastroenterology 09/20/23 Rocky Zepeda DO [address] [place] [address] [phone] Physician Gastroenterology 09/20/23 Philip Dumont MD [address] [place] [address]03995 Physician Ophthalmology 09/22/23 Meredith Carrera PA-C [address] [place] [address] Assigned Gastroenterology Provider 11/01/23 Neil Kent MD [address] [address] Dermatology 11/02/23 [place] [address] [phone] Neurological Surgery 12/26/23 documented as of this encounter
--- OUTSIDE RECORDS SUMMARY | 2024-01-07 18:19 | XMS_ITS | Encounter Summary ---
Author Organization [facility] Address [address] [place] [address] Care Team Providers Care Director Educational Radio Name Role Phone Lita Oseguera Unavailable Unavailable Marija Edgar APRN BOTTOM POLISHER Primary Care Provider Chanelle Gutierrez APRN CNM Unavailab le Kyara De La Fuente RN Unavailable [phone] Marija Edgar APRN BOTTOM POLISHER Unavailable Unavail able Mynor Broussard MD Unavailable [phone] Keisha Dotson MD Unavailable Mary Mejia Unavailable Unavailable Stacey Briones MEDIA PRODUCTION MANAGER Unavailable Lesley Moody CHW Unavailable [phone] Mary Mejia Unavailable Unavailable Lita Oseguera Unavailable Unavailable Galo Burrell MD Unavailable Unavailable Cristina Wood Unavailable Lesley Moody CHW Unavailable Meredith Bedoya Unavailable Unavailable Cristina Wood Unavailable Diana Desir [facility] Unavailable Rain Galaviz PA-C Unavailable Summer Lara MD Unavailable [phone] Summer Lara MD Unavailable [phone] Summer Lara MD Unavailable + [phone] Tavia Wyatt MD Unavailable Unavailable SemJohnny mckeon MD Unavailable +1- Erica Farrell PROVISIONING ANALYST BOTTOM POLISHER Unavailable + BeanTeresita RPH Unavailable Tavia Wyatt MD Unavailable Unavailable Diana Desir H Unavailable [phone] Rich Barrett MD Unavailable [phone] Neil Kent MD Unavailable Roney Story DPM Unavailable [phone] Erica Farrell PROVISIONING ANALYST BOTTOM POLISHER Unavailable + Diana Desir RPH Unavailable [phone] Jelena David OD Unavailable [phone] Galo Burrell MD Unavailable Unavailable Livan Sharif MD Unavailable + Livan Sharif MD Unavailable + Catherine Cm MD Unavailable + Valery Veronica PA-C Unavailable [phone] Catherine Cm MD Unavailable + Johnny Murillo MD Unavailable +1- Brea Quinn PROVISIONING ANALYST BOTTOM POLISHER Unavailable [phone] Brea Quinn PROVISIONING ANALYST BOTTOM POLISHER Unavailable [phone] Jose Francisco Johnson MD Unavailable Livan Sharif MD Unavailable + Catherine Cm MD Unavailable + Sydnie Martinez RN Unavailable Unavailable Alfonso Renteria MD Unavailable [phone] Esha Grimm PA-C Primary Care Provider [phone] Cheng Todd PA-C Unavailable Radha Lomeli APRN BOTTOM POLISHER Unavailable Jelena David OD Unavailable Pao Joseph RN Unavailable Unavailable Esha Grimm PA-C Unavailable [phone] Valery Veronica PA-C Unavailable [phone] Rey Tay MD Unavailable Rocky Zepeda DO Unavailable Philip Dumont MD Unavailable Meredith Carrera PA-C Unavailable [phone] Neil Kent MD Unavailable Juan Pablo Emmanuel MD Unavailable Encounter Details Date Type Department Care Team (Late st Contact Info) Description 07/17/2020 MyC Medical Advice M Physicians [facility] Epilepsy Care [address] [facility], [address] [place] [address] Keisha Dotson MD [address] [place] [address] Social History Tobacco Use Types [...] COVID-19? No / Unsure 06/24/2020 3:01 PM CLOTH COLORER documented as of this encounter Miscellaneous Notes * Telephone Encounter - Kyara De La Fuente RN - 07/23/2020 1:41 PM CST Patient contacted the office by [facility] to report intolerability of levetiracetam. She stayed [...] her shewouldn't need medication her whole life. H COLORER documented in this encounter Plan of Treatment Upcoming Encounters Date Type Department Care Team (Late st Contact Info) Description 01/09/2024 10:15 AM CDT Office Visit [facility] Neurology [facility] - [address], [address] [place] [address] Genny Hyman PA-C [facility] Epilepsy Care [address] [facility] [address] [place], [place] [phone] [place] [address] [place] [address] [place], [place] [address] 02/06/2024 10:00 AM CDT Office Visit [facility] [place] [address] [phone] Neil Kent MD [address] [place] [address] 03/06/2024 3:00 PM CDT Office Visit [facility] [address] [facility] [address] [place] [phone] Radha Lomeli E, PROVISIONING ANALYST BOTTOM POLISHER [address] [place], [place] [address] 03/07/2024 9:00 AM CDT Hospital Encounter [address] [phone] Rocky Zepeda DO [address] [place] [address] 03/07/2024 9:00 AM CDT - 03/07/2024 9:30 AM CDT Surgery [address] [phone] Rocky Zepeda DO [address] [place] [address] Esophagoscopy, gastroscopy, duodenoscopy (EGD), combined Scheduled Procedures Name Priority Associated Diagnoses Date/Ti tx ESOPHAGOGASTRODUODENOSCOPY Eosinophilic esophagitis Esophageal dysphagia 03/07/2024 9:00 AM CDT documented as of this encounter Visit Diagnoses Not on filedocumented in this encounter Additional Health Concerns Infection Onset Date Last Indicated Resolved Time Rule Out COVID-19 07/30/2020 07/30/2020 07/30/2020 7:11 PM CLOTH COLORER Rule Out COVID-19 08/30/2020 08/30/2020 08/30/2020 5:05 PM CLOTH COLORER Rule Out COVID-19 09/24/2020 09/24/2020 09/24/2020 9:24 AM CDT Rule Out COVID-19 11/05/2020 11/05/2020 11/06/2020 1:09 PM CDT Rule Out COVID-19 05/11/2021 05/11/2021 05/13/2021 10:18 AM CDT Rule Out COVID-19 07/13/2021 07/13/2021 07/14/2021 3:04 PM CLOTH COLORER Rule Out COVID-19 07/18/2021 07/18/2021 07/20/2021 1:56 PM CLOTH COLORER COVID-19 07/18/2021 07/18/2021 08/08/2021 11:3 9 PM CLOTH COLORER Rule Out COVID-19 12/18/2021 12/18/2021 12/19/2021 11:34 AM CDT Rule Out COVID-19 02/24/2022 02/24/2022 02/25/2022 1:08 PM CDT Rule Out COVID-19 04/26/2022 04/26/2022 04/26/2022 6:47 AM CDT Rule Out COVID-19 05/17/2022 05/17/2022 05/17/2022 10:20 PM CLOTH COLORER Rule Out COVID-19 06/09/2022 06/09/2022 06/09/2022 9:35 AM CLOTH COLORER COVID-19 06/09/2022 06/09/2022 06/30/2022 11:4 1 PM CLOTH COLORER Rule Out COVID-19 11/10/2022 11/10/2022 11/11/2022 12:17 PM CDT Rule Out COVID-19 03/07/2023 03/07/2023 03/07/2023 1:20 PM CDT Rule Out COVID-19 12/26/2023 12/26/2023 12/26/2023 9:50 AM CDT Assessment Noted Time PHQ-9 Depression Total Score: 9 06/25/20 20 7:04 AM CLOTH COLORER documented as of this encounter Care Teams Director Educational Radio Relationship Specialty Start Date End Date Marija Edgar APRN BOTTOM POLISHER PCP - General Nurse Practitioner 04/30/20 04/14/23 Esha Grimm PA-C [address] [place] [phone] PCP - General Family Medicine 05/04/23 Lita Oseguera Personal Advocate & Liaison (PAL) 02/28/20 03/27/23 Chanelle Mccann APRN CNM [address] [address] [address] [place] [address] Assigned OBGYN Provider 05/02/2005/09 Kyara De La Fuente, VJ Specialty Auditor/Quality Neurology 06/04/20 03/05/21 Marija Edgar APRN BOTTOM POLISHER Assigned PCP 06/08/20 04/29/23 Mynor Broussard MD [address] [facility] [address] [place] [address] Assigned Surgical Provider 06/01/20 11/28/21 Keisha Dotson MD [address] [place] [address] Assigned Neuroscience Provider 06/04/20 04/01/23 Mary Mejia Financial Resource Worker 08/07/20 08/21/20 Stcaey Briones, MEDIA PRODUCTION MANAGER Lead Auditor/Quality Primary Care - CC 08/11/2012/30 Lesley Moody, W Community Health Worker 08/11/2010/01 Mary Mejia Financial Resource Worker 09/02/20 10/06/20 Lita Oseguera Personal Advocate & Liaison (PAL) Family Medicine 09/10/20 09/21/20 aGlo Burrell MD Assigned Heart and Vascular Provider 10/05/20 04/02/22 Cristina Wood Financial Resource Worker 10/07/20 10/14/20 Lesley Moody, [facility] Community Health Worker 10/23/2012/30 Meredith Bedoya Financial Resource Worker 10/23/20 11/23/20 Cristina Wood Financial Resource Worker 02/09/21 02/09/21 Diana Desir, [facility] [address] [place] [address] Pharmacist Pharmacist 04/17/21 Rain Galaviz PA-C [address] [place] [address] [place] [address] Physician Associate Web Developer Dermatology 04/28/21 Summer Lara MD [address] [place] [address] [phone] Assigned OBGYN Provider 05/10/2105/23 Summer Lara MD [address] [place] [address] [phone] Assigned OBGYN Provider 05/31/21 2 Summer Lara MD [address] [place] [address] [phone] Assigned OBGYN Provider 05/24/2105/30 Tavia Wyatt MD [address] [place] [address] Dermatology 07/14/21 Johnny Murillo MD [address] [place] [address] Assigned Musculoskeletal Provider 08/30/21 03/17/22 Erica Farrell APRN BOTTOM POLISHER [address] [facility] [address] [place] [address] Nurse Practitioner Cardiovascular Disease 09/09/21 Teresita Bean, [facility] [address] [place] [phone] Pharmacist Pharmacist 09/24/21 09/29/21 Tavia Wyatt MD Assigned Surgical Provider 11/29/21 05/07/22 [facility] [address] [place] [address] Assigned MTM Pharmacist 01/02/22 Rich Barrett MD [address] [facility] [address] [place] [address] Physician Ophthalmology 01/21/22 Neli Kent MD [address] [place] [address] Dermatology 02/24/22 Roney Story DPM [address] [facility] [address] [place], [place] [phone] Assigned Musculoskeletal Provider 03/20/22 08/13/22 Erica Farrell APRN BOTTOM POLISHER [address] [place] [address] Assigned Heart and Vascular Provider 04/03/22 04/16/22 Diana Desir, [facility] [address] [place] [address] Assigned MTM Pharmacist 04/07/22 Jelena David OD [address] [place] [address] Assigned Surgical Provider 05/08/22 10/08/22 Galo Burrell MD Assigned Heart and Vascular Provider 04/17/22 06/11/22 Livan Sharif MD [address] [place] [address] Cardiovascular Disease 05/14/22 Livan Sharif MD [address] [place] [address] Assigned Heart and Vascular Provider 06/12/22 07/23/22 Catherine Cm MD [address] [place] [address] Cardiovascular Disease 07/21/22 Valery Veronica, PAUcheC [address] [place] [address] Physician Associate Web Developer Dermatology 07/21/22 Catherine Cm MD [address] [place] [address] Assigned Heart and Vascular Provider 07/24/22 11/05/22 Johnny Murillo MD [address] [phone] Assigned Musculoskeletal Provider 08/14/22 10/08/22 Brea Quinn APRN BOTTOM POLISHER [address] [place] [id number] Nurse Practitioner Dermatology 09/21/22 Brea Quinn APRN BOTTOM POLISHER [facility] PR [address] Assigned Surgical Provider 10/09/22 [place] [address] [phone] Assigned Musculoskeletal Provider 10/09/22 Livan Sharif MD [address], [facility] [address] [place] [address] Assigned Heart and Vascular Provider 11/06/22 11/12/22 Catherine Cm MD [address] [facility] [address] [place] [address] Assigned Heart and Vascular Provider 11/13/22 05/27/23 JuanSydnie malik RN Personal Advocate & Liaison (PAL) Family Medicine 03/28/23 07/31/23 Alfonso Renteria MD [address] [facility] [address] [place], [place] 60[address] Assigned Neuroscience Provider 04/02/23 Cheng Todd PA-C [address] [place] [address] Assigned PCP 04/30/23 07/15/23 Radha Lomeli APRN BOTTOM POLISHER [address] [facility] [address] [place] [address] Assigned Heart and Vascular Provider 05/28/23 Jelena David OD [address] [place] [address] Ophthalmology 06/15/23 Pao Joseph, VJ Personal Advocate & Liaison (PAL) Nurse 08/01/23 11/07/23 Esha Grimm PA-C [address] [place] [phone] Assigned PCP 07/16/23 Valery Veronica PA-C [address] [place] [address] [id number] Physician Associate Web Developer Dermatology 09/19/23 Rey Tay MD [address] [place] [address] [phone] Gastroenterology 09/20/23 Rocky Zepeda DO [address] [place] [address] [phone] Physician Gastroenterology 09/20/23 Philip Dumont MD [address] [place] [address] 354125 Physician Ophthalmology 09/22/23 Meredith Carrera PA-C [address] [place] [address] Assigned Gastroenterology Provider 11/01/23 Neil Kent MD [address] [address] Dermatology 11/02/23 [place] [address] [place] [place] [address] [id number] Neurological Surgery 12/26/23 documented as of this encounter
--- OUTSIDE RECORDS SUMMARY | 2024-01-07 18:19 | XMS_ITS | Encounter Summary ---
Author Organization [facility] Address [address] [place] [address] Care Team Providers Care Ict Sales Representative Name Role Phone Lita Oseguera Unavailable Unavailable Rakesh Cid PA-C Unavailable + [phone] Marija Edgar FRAUD INVESTIGATOR LIGHT RAIL SIGNAL TECHNICIAN Primary Care Provider Chanelle Gutierrez FRAUD INVESTIGATOR CNM Unavailab le Lesley Moody CHW Unavailable Kyara De La Fuente RN Unavailable [phone] Marija Edgar APRN LIGHT RAIL SIGNAL TECHNICIAN Unavailable Unavail able Mynor Broussard MD Unavailable [phone] Keisha Dotson MD Unavailable [phone] Mary Mejia Unavailable Unavailable Stacey Briones TEACHING FELLOW Unavailable [phone] Lesley Moody CHW Unavailable +[phone] Mary Mejia Unavailable Unavailable Lita Oseguera Unavailable Unavailable Galo Burrell MD Unavailable Unavailable Cristina Wood Unavailable Lesley Moody CHW Unavailable [phone] Meredith Bedoya Unavailable Unavailable Cristina Wood Unavailable Diana Desir RPH Unavailable [phone] AnastaciaKailaRainsuki Paredes PA-C Unavailable +[phone] Summer Lara MD Unavailable [phone] Summer Lara MD Unavailable [phone] Summer Lara MD Unavailable +[phone] Tavia Wyatt MD Unavailable Unavailable Johnny Murillo MD Unavailable +1- Erica Farrell FRAUD INVESTIGATOR LIGHT RAIL SIGNAL TECHNICIAN Unavailable + VikasTeresita [facility] Unavailable Tavia Wyatt MD Unavailable Unavailable Diana Desir [facility] Unavailable [phone] Rich Barrett MD Unavailable +[phone] Neil Kent MD Unavailable Roney Story DPM Unavailable [phone] Erica Farrell FRAUD INVESTIGATOR LIGHT RAIL SIGNAL TECHNICIAN Unavailable Diana Desir [facility] Unavailable [phone] Jelena Daivd OD Unavailable Galo Burrell MD Unavailable Unavailable Livan Sharif MD Unavailable + Livan Sharif MD Unavailable + Catherine Cm MD Unavailable + Valery Veronica PA-C Unavailable [phone] Catherine Cm MD Unavailable + Johnny Murillo MD Unavailable +1- Brea Quinn FRAUD INVESTIGATOR LIGHT RAIL SIGNAL TECHNICIAN Unavailable [phone] Brea Quinn FRAUD INVESTIGATOR LIGHT RAIL SIGNAL TECHNICIAN Unavailable [phone] Jose Francisco Johnson MD Unavailable Livan Sharif MD Unavailable Catherine Cm MD Unavailable + Sydnie Martinez RN Unavailable Unavailable Alfonso Renteria MD Unavailable [phone] Esha Grimm PA-C Primary Care Provider Cheng Todd PA-C Unavailable Radha Lomeli APRN LIGHT RAIL SIGNAL TECHNICIAN Unavailable [phone] FrankieJelena OD Unavailable [phone] Pao Joseph RN Unavailable Unavailable Esha Grimm PA-C Unavailable [phone] Valery Veronica PA-C Unavailable Rey Tay MD Unavailable Rocky Zepeda DO Unavailable Philip Dumont MD Unavailable [phone] Meredith Carrera PA-C Unavailable [phone] Neil Kent MD Unavailable Juan Pablo Emmanuel MD Unavailable +[phone] Encounter Details Date Type Department Care Team (Late st Contact Info) Description 05/23/2020 MyC Medical Advice [address] [phone] Marija Edgar, ARLENE LIGHT RAIL SIGNAL TECHNICIAN Social History Tobacco Use Types Packs/Day Years [...] COVID-19? No / Unsure 05/12/2020 9:03 AM HEAD BATCHER documented as of this encounter Plan of Treatment Upcoming Encounters Date Type Department Care Team (Late st Contact Info) Description 01/09/2024 10:15 AM CDT Office Visit [facility] Neurology [facility] [address] [facility], [address] [place] [phone] [address]enny Hyman PA-C [facility] [address] [facility] [address] [place], [place] [address] [place] [address] [facility] [address] [place], [place] [address] 02/06/2024 10:00 AM CDT Office [facility] [address] [phone] Neil Kent MD [address] [place], [place] [address] 03/06/2024 3:00 PM CDT Office Visit [facility] Heart [facility] [address] [facility] [address] [place] [phone] Radha Lomeli APRN LIGHT RAIL SIGNAL TECHNICIAN [address] [place] [address] 03/07/2024 9:00 AM CDT Hospital Encounter [facility] [address] [facility] [address] 5th [place] [phone] Rocky Zepeda DO [address] [place], [place] [address] 03/07/2024 9:00 AM CDT - 03/07/2024 9:30 AM CDT [facility] [address] [facility] 5th [place] [phone] Rocky Zepeda, [address] [place] [address] Esophagoscopy, gastroscopy, duodenoscopy (EGD), combined Scheduled Procedures Name Priority Associated Diagnoses Date/Ti ak ESOPHAGOGASTRODUODENOSCOPY Eosinophilic esophagitis Esophageal dysphagia 03/07/2024 9:00 AM CDT documented as of this encounter Visit Diagnoses Not on filedocumented in this encounter Additional Health Concerns Infection Onset Date Last Indicated Resolved Time Rule Out COVID-19 07/30/2020 07/30/2020 07/30/2020 7:11 PM HEAD BATCHER Rule Out COVID-19 08/30/2020 08/30/2020 08/30/2020 5:05 PM HEAD BATCHER Rule Out COVID-19 09/24/2020 09/24/2020 09/24/2020 9:24 AM CDT Rule Out COVID-19 11/05/2020 11/05/2020 11/06/2020 1:09 PM CDT Rule Out COVID-19 05/11/2021 05/11/2021 05/13/2021 10:18 AM CDT Rule Out COVID-19 07/13/2021 07/13/2021 07/14/2021 3:04 PM HEAD BATCHER Rule Out COVID-19 07/18/2021 07/18/2021 07/20/2021 1:56 PM HEAD BATCHER COVID-19 07/18/2021 07/18/2021 08/08/2021 11:3 9 PM HEAD BATCHER Rule Out COVID-19 12/18/2021 12/18/2021 12/19/2021 11:34 AM CDT Rule Out COVID-19 02/24/2022 02/24/2022 02/25/2022 1:08 PM CDT Rule Out COVID-19 04/26/2022 04/26/2022 04/26/2022 6:47 AM CDT Rule Out COVID-19 05/17/2022 05/17/202205/17/2022 10:20 PM HEAD BATCHER Rule Out COVID-19 06/09/2022 06/09/2022 06/09/2022 9:35 AM HEAD BATCHER COVID-19 06/09/2022 06/09/2022 06/30/2022 11:4 1 PM HEAD BATCHER Rule Out COVID-19 11/10/2022 11/10/2022 11/11/2022 12:17 PM CDT Rule Out COVID-19 03/07/2023 03/07/2023 03/07/2023 1:20 PM CDT Rule Out COVID-19 12/26/2023 12/26/2023 12/26/2023 9:50 AM CDT Assessment Noted Time PHQ-9 Depression Total Score: 6 08/28/19 7:05 AM HEAD BATCHER documented as of this encounter Care Teams Ict Sales Representative Relationship Specialty Start Date End Date Marija Edgar APRN LIGHT RAIL SIGNAL TECHNICIAN [address] [facility] [address] PCP - General Nurse Practitioner 04/30/20 04/14/23 Esha Grimm PA-C [address] [place] [phone] PCP - General Family Medicine 05/04/23 Lita Oseguera Personal Advocate & Liaison (PAL) 02/28/20 03/27/23 Rakesh Cid PA-C [address] [place] [address] Assigned PCP 03/02/20 06/07/20 Chanelle Mccann APRN CNM [address] [place] [address] Assigned OBGYN Provider 05/02/2005/09 Lesley Moody, W Community Health Worker 05/30/2005/12 Kyara De La Fuente, RN Specialty Analytics Manager Neurology 06/04/20 03/05/21 Marija Edgar APRN LIGHT RAIL SIGNAL TECHNICIAN [address] [place] [address] Assigned PCP 06/08/20 04/29/23 Mynor Broussard MD [address] [address] Assigned Surgical Provider 06/01/20 11/28/21 Keisha Dotson MD [address] [place], [place] [address] Assigned Neuroscience Provider 06/04/20 04/01/23 Mary Mejia Financial Resource Worker 08/07/20 08/21/20 Stacey Briones, [facility] Lead Analytics Manager Primary Care - CC 08/11/2012/30 Lesley Moody, [facility] Community Health Worker 08/11/2010/01 Mary Mejia Financial Resource Worker 09/02/20 10/06/20 Lita Oseguera Personal Advocate & Liaison (PAL) Family Medicine 09/10/20 09/21/20 Galo Burrell MD Assigned Heart and Vascular Provider 10/05/20 04/02/22 Cristina Wood Financial Resource Worker 10/07/20 10/14/20 Lesley Moody, [facility] Community Health Worker 10/23/2012/30 Meredith Bedoya Financial Resource Worker 10/23/20 11/23/20 Cristina Wood Financial Resource Worker 02/09/21 02/09/21 Diana Desir, [facility] [address] [place] [address] Pharmacist Pharmacist 04/17/21 Rain Galaviz PA-C [address] [place] [address] [address] [facility] [place] [address] Physician Powertrain Engineer Dermatology 04/28/21 Summer Lara MD [address] [place] [address] Assigned OBGYN Provider 05/10/2105/23 Summer Lara MD [address] [place] [address] Assigned OBGYN Provider 05/31/21 Summer Lara MD [address] [place] [address] Assigned OBGYN Provider 05/24/2105/30 Tavia Wyatt MD [address] [place] [address] Dermatology 07/14/21 Johnny Murillo MD [address] [place] [address] Assigned Musculoskeletal Provider 08/30/21 03/17/22 Erica Farrell APRN LIGHT RAIL SIGNAL TECHNICIAN [address] [facility] [address] [place] [address] Nurse Practitioner Cardiovascular Disease 09/09/21 Teresita Bean, [facility] [address] [facility] [place] [address] Pharmacist Pharmacist 09/24/21 09/29/21 Tavia Wyatt MD Assigned Surgical Provider 11/29/21 05/07/22 [facility] [address] [place] [address] Assigned MTM Pharmacist 01/02/22 Rich Barrett MD [address] [address] Physician Ophthalmology 01/21/22 Neil Kent MD [address] [place], [place] [phone] Dermatology 02/24/22 Roney Story DPM [address] [facility] [address] [place] [address] Assigned Musculoskeletal Provider 03/20/22 08/13/22 Erica Farrell APRN LIGHT RAIL SIGNAL TECHNICIAN [facility] [place] [address] Assigned Heart and Vascular Provider 04/03/22 04/16/22 [facility] [address] [place] [address] Assigned MTM Pharmacist 04/07/22 Jelena David OD [address] [facility] [place] [address] Assigned Surgical Provider 05/08/22 10/08/22 aGlo Burrell MD Assigned Heart and Vascular Provider 04/17/22 06/11/22 Livan Sharif MD [address] [place] [address] Cardiovascular Disease 05/14/22 Livan Sharif MD [address] [place], [place] [address] Assigned Heart and Vascular Provider 06/12/22 07/23/22 Catherine Cm MD [address] [place] [address] Cardiovascular Disease 07/21/22 Valery Veronica, PAUcheC [address] [place] [address] Physician Powertrain Engineer Dermatology 07/21/22 Catherine Cm MD [address] [place] [address] Assigned Heart and Vascular Provider 07/24/22 11/05/22 Johnny Murillo MD [facility] [address] Assigned Musculoskeletal Provider 08/14/22 10/08/22 Brea Quinn APRN LIGHT RAIL SIGNAL TECHNICIAN [address] [place] [address] Nurse Practitioner Dermatology 09/21/22 Brea Quinn APRN LIGHT RAIL SIGNAL TECHNICIAN [address] [place] [address] Assigned Surgical Provider 10/09/22 [place] [address] [facility] [address] [place] [address] Assigned Musculoskeletal Provider 10/09/22 Livan Sharif MD [address] [place] [address] Assigned Heart and Vascular Provider 11/06/22 11/12/22 Catherine Cm MD [address] [place] 27[address] Assigned Heart and Vascular Provider 11/13/22 05/27/23 Sydnie Martinez, VJ Personal Advocate & Liaison (PAL) Family Medicine 03/28/23 07/31/23 Alfonso Renteria MD [address] [facility] [address] [place] [address] Assigned Neuroscience Provider 04/02/23 Cheng Todd PA-C [address] [place] [address] Assigned PCP 04/30/23 07/15/23 Radha Lomeli APRN LIGHT RAIL SIGNAL TECHNICIAN [address] [place] [address] Assigned Heart and Vascular Provider 05/28/23 Jelena David OD [address] [facility] [place] [address] MD Ophthalmology 06/15/23 Pao Joseph, RN Personal Advocate & Liaison (PAL) Nurse 08/01/23 11/07/23 Esha Grimm PA-C [address] [place] [address] Assigned PCP 07/16/23 Valery Veronica PA-C [address] [place] [address] Physician Powertrain Engineer Dermatology 09/19/23 Rey Tay MD [address] [place] [address]6455 MD Gastroenterology 09/20/23 Rocky Zepeda DO [address] [place] [address]66115 Physician Gastroenterology 09/20/23 Philip Dumont MD [address] [place] [address] 714535 Physician Ophthalmology 09/22/23 Meredith Carrera PA-C [address] [place] [address] 741665 Assigned Gastroenterology Provider 11/01/23 Neil Kent MD [address] [address] Dermatology 11/02/23 [place] [address] [place] [address] Neurological Surgery 12/26/23 documented as of this encounter
--- OUTSIDE RECORDS SUMMARY | 2024-01-07 18:19 | XMS_ITS | Encounter Summary ---
Author Organization [facility] Address [address] [place] [address] Care Team Providers Care Metal Tank Builder Name Role Phone Rakesh Cid PA-C Primary Care Provider Lita Oseguera Unavailable Unavailable Rakesh Cid PA-C Unavailable [phone] Lita Oseguera Unavailable Unavailable Marija Edgar APRN VICE ADMIRAL Primary Care Provider Chanelle Gutierrez CREDENTIALS SPECIALIST CNM Unavailab le Lesley Moody CHW Unavailable Kyara De La Fuente RN Unavailable [phone] Marija Edgar APRN VICE ADMIRAL Unavailable Unavail able Mynor Broussard MD Unavailable Keisha Dotson MD Unavailable [phone] Mary Mejai Unavailable Unavailable Stacey Briones WELDING MACHINE OPERATOR [employer] Unavailable [phone] Lesley Moody CHW Unavailable [phone] Mary Mejia Unavailable Unavailable Lita Oseguera Unavailable Unavailable Galo Burrell MD Unavailable Unavailable Cristina Wood Unavailable Lesley Moody CHW Unavailable [phone] Meredith Bedoya Unavailable Unavailable Cristina Wood Unavailable DesirDiana [facility] Unavailable [phone] Rain Galaviz-C Unavailable [phone] Summer Lara MD Unavailable [phone] Summer Lara MD Unavailable [phone] Summer Lara MD Unavailable [phone] Tavia Wyatt MD Unavailable Unavailable Johnny Murillo MD Unavailable [phone] Erica Farrell APRN VICE ADMIRAL Unavailable + Teresita Bean [facility] Unavailable Tavia Wyatt MD Unavailable Unavailable Diana Desir [facility] Unavailable [phone] Rich Barrett MD Unavailable [phone] Neil Kent MD Unavailable Roney Story DPM Unavailable Erica Farrell APRN VICE ADMIRAL Unavailable + Diana Desir [facility] Unavailable [phone] Jelena David OD Unavailable Galo Burrell MD Unavailable Unavailable Livan Sharif MD Unavailable + Livan Sharif MD Unavailable + Catherine Cm MD Unavailable + Valery Veronica-C Unavailable [phone] Catherine Cm MD Unavailable + Johnny Murillo MD Unavailable [phone] Brea Quinn APRN VICE ADMIRAL Unavailable [phone] [place], Brea P CREDENTIALS SPECIALIST VICE ADMIRAL Unavailable Jose Francisco Johnson MD Unavailable Livan Sharif MD Unavailable Catherine Cm MD Unavailable + Sydnie Martinez RN Unavailable Unavailable Alfonso Renteria MD Unavailable [phone] Esha Grimm PA-C Primary Care Provider Cheng Todd PA-C Unavailable Radha Lomeli CREDENTIALS SPECIALIST VICE ADMIRAL Unavailable Jelena David OD Unavailable Pao Joseph RN Unavailable Unavailable Esha Grimm PA-C Unavailable [phone] Valery Veronica PA-C Unavailable Rey Tay MD Unavailable Rocky Zepeda DO Unavailable Philip Dumont MD Unavailable Meredith Carrera PA-C Unavailable [phone] Neil Kent MD Unavailable Juan Pablo Emmanuel MD Unavailable [phone] Encounter Details Date Type Department Care Team (Late st Contact Info) Description 04/25/2020 [facility] Medical Advice [address] [address] Rakesh Cid PA-C [address] [place] [address] Social History Tobacco Use Types [...] Description 01/09/2024 10:15 AM CDT Office Visit [facility] Neurology [facility] [address] [facility], [address] [place] [phone] Genny Hyman PA-C [facility] Epilepsy [facility] [address] [facility] [address] [place], [place] [address] [place] [address] [facility] [address] [place], [place] [address] 02/06/2024 10:00 AM CDT Office Visit [facility] [address] [phone] Neil Kent MD [address] [place], [place] [address] 03/06/2024 3:00 PM CDT Office Visit [facility] Heart [facility] [address] [facility] [address] [place] [phone] Radha Lomeli APRN VICE ADMIRAL [address] [facility] [address] [place], [place] [address] 03/07/2024 9:00 AM CDT Hospital Encounter [facility] [address] [facility] [address] [place] [address] Rocky Zepeda DO 500 [place], [place] [address] 03/07/2024 9:00 AM CDT - 03/07/2024 9:30 AM CDT [facility] [address] [place] [address] [address] [place] [phone] Rocky Zepeda DO 500 [place] [address] Esophagoscopy, gastroscopy, duodenoscopy (EGD), combined Scheduled Procedures Name Priority Associated Diagnoses Date/Ti hi ESOPHAGOGASTRODUODENOSCOPY Eosinophilic esophagitis Esophageal dysphagia 03/07/2024 9:00 AM CDT documented as of this encounter Visit Diagnoses Not on filedocumented in this encounter Additional Health Concerns Infection Onset Date Last Indicated Resolved Time Rule Out COVID-19 07/30/2020 07/30/2020 07/30/2020 7:11 PM MEDICAL CLERK Rule Out COVID-19 08/30/2020 08/30/2020 08/30/2020 5:05 PM MEDICAL CLERK Rule Out COVID-19 09/24/2020 09/24/2020 09/24/2020 9:24 AM CDT Rule Out COVID-19 11/05/2020 11/05/2020 11/06/2020 1:09 PM CDT Rule Out COVID-19 05/11/2021 05/11/2021 05/13/2021 10:18 AM CDT Rule Out COVID-19 07/13/2021 07/13/2021 07/14/2021 3:04 PM MEDICAL CLERK Rule Out COVID-19 07/18/2021 07/18/2021 07/20/2021 1:56 PM MEDICAL CLERK COVID-19 07/18/2021 07/18/2021 08/08/2021 11:3 9 PM MEDICAL CLERK Rule Out COVID-19 12/18/2021 12/18/2021 12/19/2021 11:34 AM CDT Rule Out COVID-19 02/24/2022 02/24/2022 02/25/2022 1:08 PM CDT Rule Out COVID-19 04/26/2022 04/26/2022 04/26/2022 6:47 AM CDT Rule Out COVID-19 05/17/2022 05/17/2022 05/17/2022 10:20 PM MEDICAL CLERK Rule Out COVID-19 06/09/2022 06/09/2022 06/09/2022 9:35 AM MEDICAL CLERK COVID-19 06/09/2022 06/09/2022 06/30/2022 11:4 1 PM MEDICAL CLERK Rule Out COVID-19 11/10/2022 11/10/2022 11/11/2022 12:17 PM CDT Rule Out COVID-19 03/07/2023 03/07/2023 03/07/2023 1:20 PM CDT Rule Out COVID-19 12/26/2023 12/26/2023 12/26/2023 9:50 AM CDT Assessment Noted Time PHQ-9 Depression Total Score: 12 020 2:40 PM CDT documented as of this encounter Care Teams Metal Tank Builder Relationship Specialty Start Date End Date Rakesh Cid PA-C PCP - General Physician Receiving Checker - Medical 05/14/19 04/29/20 Marija Edgar APRN CNP [address] [address] PCP - General Nurse Practitioner 04/30/20 04/14/23 Esha Grimm PA-C [address] [place] [phone] PCP - General Family Medicine 05/04/23 Lita Oseguera Personal Advocate & Liaison (PAL) 02/28/20 03/27/23 Rakesh Cid PA-C [address] [place] [address] Assigned PCP 03/02/20 06/07/20 Lita Oseguera Personal Advocate & Liaison (PAL) 04/07/20 04/29/20 Chanelle Mccann APRN CNM [address] [place], [facility] [address] [place] [address] Assigned OBGYN Provider 05/02/2005/09 Lesley Moody, CHW Community Health Worker 05/30/2005/12 Kyara De La Fuente, VJ Specialty Project Controls Specialist Neurology 06/04/20 03/05/21 Marija Edgar APRN VICE ADMIRAL [address] [facility] [place] [address] Assigned PCP 06/08/20 04/29/23 Mynor Broussard MD [address] [facility] 500 [place] [address] Assigned Surgical Provider 06/01/20 11/28/21 Keisha Dotson MD [address] [place], [place] [address] Assigned Neuroscience Provider 06/04/20 04/01/23 Mary Mejia Financial Resource Worker 08/07/20 08/21/20 Stacey Briones, WELDING MACHINE OPERATOR [employer] Lead Project Controls Specialist Primary Care - CC 08/11/2012/30 Lesley Moody, CHW Community Health Worker 08/11/2010/01 Mary Mejia Financial Resource Worker 09/02/20 10/06/20 Lita Oseguera Personal Advocate & Liaison (PAL) Family Medicine 09/10/20 09/21/20 Galo Burrell MD Assigned Heart and Vascular Provider 10/05/20 04/02/22 Cristina Wood Financial Resource Worker 10/07/20 10/14/20 Lesley Moody, [facility] Community Health Worker 10/23/2012/30 Meredith Bedoya Financial Resource Worker 10/23/20 11/23/20 Cristina Wood Financial Resource Worker 02/09/21 02/09/21 Diana Desir, [facility] [address] [place] [address] Pharmacist Pharmacist 04/17/21 Rain Galaviz PA-C [address] [place] [address] [address] [place], [place] [phone] Physician Receiving Checker Dermatology 04/28/21 Summer Lara MD [address] [place] [address] 407684 Assigned OBGYN Provider 05/10/2105/23 Summer Lara MD [address] [place] [address] [phone] Assigned OBGYN Provider 05/31/21 2 Summer Lara MD [address] [place] [address] [phone] Assigned OBGYN Provider 05/24/2105/30 Tavia Wyatt MD [address] [place] [address] Dermatology 07/14/21 Johnny Murillo MD [address] [place] [address] Assigned Musculoskeletal Provider 08/30/21 03/17/22 Erica Farrell APRN VICE ADMIRAL [address] [facility] [address] [place] [address] Nurse Practitioner Cardiovascular Disease 09/09/21 Teresita Bean, [facility] [address] [place] [phone] Pharmacist Pharmacist 09/24/21 09/29/21 Tavia Wyatt MD Assigned Surgical Provider 11/29/21 05/07/22 [facility] [address] [place] [address] Assigned MTM Pharmacist 01/02/22 Rich Barrett MD [address] [facility] [address] [place], [place] [phone] Physician Ophthalmology 01/21/22 Neil Kent MD [address] [place] [address] Dermatology 02/24/22 R[address]PM [address] [facility] [address] [place] [address] Assigned Musculoskeletal Provider 03/20/22 08/13/22 Erica Farrell APRN VICE ADMIRAL [address] [place] [address] Assigned Heart and Vascular Provider 04/03/22 04/16/22 Diana Desir, [facility] [address] [place] [address] Assigned MTM Pharmacist 04/07/22 Jelena David OD [address] [facility] [place] [address] Assigned Surgical Provider 05/08/22 10/08/22 Galo Burrell MD Assigned Heart and Vascular Provider 04/17/22 06/11/22 Livan Sharif MD [address] [place] [address] Cardiovascular Disease 05/14/22 Livan Sharif MD [address] [place] [address] Assigned Heart and Vascular Provider 06/12/22 07/23/22 Catherine Cm MD [address] [place] [address] Cardiovascular Disease 07/21/22 Valery Veronica PA-C [address] [place], [place] [address] Physician Receiving Checker Dermatology 07/21/22 Catherine Cm MD [address] [place] [address] Assigned Heart and Vascular Provider 07/24/22 11/05/22 Johnny Murillo MD [facility] [address] [address] Assigned Musculoskeletal Provider 08/14/22 10/08/22 Brea Quinn APRN VICE ADMIRAL 500 [place] [address] Nurse Practitioner Dermatology 09/21/22 Brea Quinn APRN VICE ADMIRAL [address] [place] [address] Assigned Surgical Provider 10/09/22 [place] [address] [address] Assigned Musculoskeletal Provider 10/09/22 Livan Sharif MD [address] [facility] [address] [place] [address] Assigned Heart and Vascular Provider 11/06/22 11/12/22 Catherine Cm MD [address] [facility] [address] [place], [place] [address] Assigned Heart and Vascular Provider 11/13/22 05/27/23 Sydnie Martinez RN Personal Advocate & Liaison (PAL) Family Medicine 03/28/23 07/31/23 Alfonso Renteria MD [address] [facility] [address] [place], [place] [address] Assigned Neuroscience Provider 04/02/23 Cheng Todd PA-C [address] [place] [address] [id number] Assigned PCP 04/30/23 07/15/23 Radha Lomeli APRN VICE ADMIRAL [address] [facility] [address] [place], [place] [address] Assigned Heart and Vascular Provider 05/28/23 Jelena David OD [address] [facility] [address] [place] [phone] MD Ophthalmology 06/15/23 Pao Joseph, VJ Personal Advocate & Liaison (PAL) Nurse 08/01/23 11/07/23 Esha Grimm PA-C [address] [place] [phone] Assigned PCP 07/16/23 Valery Veronica PA-C [address] [place] [phone] Physician Receiving Checker Dermatology 09/19/23 Rey Tay MD [address] [place] [address] Gastroenterology 09/20/23 Rocky Zepeda DO [address] [place] [address]25 Physician Gastroenterology 09/20/23 Philip Dumont MD [address] [place] [address] 675815 Physician Ophthalmology 09/22/23 Meredith Carrera PA-C [address] [place] [address] Assigned Gastroenterology Provider 11/01/23 Neil Kent MD [address] [address] Dermatology 11/02/23 [place] [address] [address] 809627 Neurological Surgery 12/26/23 documented as of this encounter
--- OUTSIDE RECORDS SUMMARY | 2024-01-07 18:19 | XMS_ITS | Encounter Summary ---
Author Organization [facility] Address [address] [place] [address] Care Team Providers Care Solution Advisor Name Role Phone Lita Oseguera Unavailable Unavailable Rakesh Cid PA-C Unavailable + [phone] Marija Edgar PHARMACISTS REGRADER Primary Care Provider Chanelle Gutierrez PHARMACISTS CNM Unavailab le Lesley Moody CHW Unavailable [phone] Kyara De La Fuente RN Unavailable [phone] Marija Edgar APRN REGRADER Unavailable Unavail able Mynor Broussard MD Unavailable [phone] Keisha Dotson MD Unavailable [phone] Mary Mejia Unavailable Unavailable Stacey Briones PRESS TENDER Unavailable [phone] Lesley Moody CHW Unavailable Mary Mejia Unavailable Unavailable Lita Oseguera Unavailable Unavailable Galo Burrell MD Unavailable Unavailable Cristina Wood Unavailable Lesley Moody CHW Unavailable Meredith Bedoya Unavailable Unavailable Cristina Wood Unavailable Diana Desir RPH Unavailable [phone] AnastaciaKailaRainsuki Paredes PA-C Unavailable [phone] Summer Lara MD Unavailable [phone] Summer Lara MD Unavailable [phone] Summer Lara MD Unavailable [phone] Tavia Wyatt MD Unavailable Unavailable Johnny Murillo MD Unavailable +[phone]- Erica Farrell PHARMACISTS REGRADER Unavailable + VikasTeresita [facility] Unavailable Tavia Wyatt MD Unavailable Unavailable Diana Desir [facility] Unavailable [phone] Rich Barrett MD Unavailable [phone] Neil Kent MD Unavailable Roney Story DPM Unavailable [phone] Erica Farrell PHARMACISTS REGRADER Unavailable Diana Desir [facility] Unavailable [phone] Jelena David OD Unavailable [phone] Galo Burrell MD Unavailable Unavailable Livan Sharif MD Unavailable + Livan Sharif MD Unavailable + Catherine Cm MD Unavailable + Valery Veronica PA-C Unavailable [phone] Catherine Cm MD Unavailable + Johnny Murillo MD Unavailable +1- Brea Quinn PHARMACISTS REGRADER Unavailable [phone] Brea Quinn PHARMACISTS REGRADER Unavailable [phone] Jose Francisco Johnson MD Unavailable Livan Sharif MD Unavailable Catherine Cm MD Unavailable + Sydnie Martinez RN Unavailable Unavailable Alfonso Renteria MD Unavailable [phone] Esha Grimm PA-C Primary Care Provider [phone] Cheng Todd PA-C Unavailable Radha Lomeli APRN REGRADER Unavailable [phone] FrankieJelena OD Unavailable Pao Joseph RN Unavailable Unavailable Esha Grimm PA-C Unavailable [phone] Valery Veronica PA-C Unavailable Rey Tay MD Unavailable Rocky Zepeda DO Unavailable Philip Dumont MD Unavailable [phone] Meredith Carrera PA-C Unavailable [phone] Neil Kent MD Unavailable Juan Pablo Emmanuel MD Unavailable [phone] Encounter Details Date Type Department Care Team (Late st Contact Info) Description 06/05/2020 MyC Medical Advice [address] [phone] Marija Edgar, ARLENE REGRADER Social History Tobacco Use Types Packs/Day Years [...] COVID-19? No / Unsure 06/04/2020 10:30 AM JANITOR AND CLEANER documented as of this encounter Miscellaneous Notes * Telephone Encounter - Marija Edgar APRN CNP - 06/09/2020 9:38 AM JANITOR AND CLEANER Those referrals have been placed. The mental health attempted call but patient did not answer. Please have patient check voicemail's or await one further follow-up call. They will call her to set up Holter monitor. Thank you Marija Edgar APRN CNP on 06/09/2020 at 9:40 AM TOR AND CLEANER documented in this encounter Plan of Treatment Upcoming Encounters Date Type Department Care Team (Late st Contact Info) Description 01/09/2024 10:15 AM CDT Office Visit [facility] Neurology [facility] - [address], [address] [place] [phone] Genny Hyman PA-C [facility] [address] [facility] [address] [place], [place] [address] [place] [address] [facility] [address] [place], [place] [address] 02/06/2024 10:00 AM CDT Office Visit [facility] [address] [phone] Neil Kent MD [address] [place], [place] [address] 03/06/2024 3:00 PM CDT Office Visit [facility] Heart [facility] [address] [facility] [address] [place] [phone] Radha Lomeli APRN CNP [address] [place] [address] 03/07/2024 9:00 AM CDT Hospital Encounter [facility] [place] [address] [facility] [address] [place] [phone] Rocky Zepeda, DO [address] [place], [place] [address] 03/07/2024 9:00 AM CDT - 03/07/2024 9:30 AM CDT [facility] 9[address] [facility] [address] [place] [phone] Rocky Zepeda, DO [address] [place], [place] [address] Esophagoscopy, gastroscopy, duodenoscopy (EGD), combined Scheduled Procedures Name Priority Associated Diagnoses Date/Ti mt ESOPHAGOGASTRODUODENOSCOPY Eosinophilic esophagitis Esophageal dysphagia 03/07/2024 9:00 AM CDT documented as of this encounter Visit Diagnoses Not on filedocumented in this encounter Additional Health Concerns Infection Onset Date Last Indicated Resolved Time Rule Out COVID-19 07/30/2020 07/30/2020 07/30/2020 7:11 PM JANITOR AND CLEANER Rule Out COVID-19 08/30/2020 08/30/2020 08/30/2020 5:05 PM JANITOR AND CLEANER Rule Out COVID-19 09/24/2020 09/24/2020 09/24/2020 9:24 AM CDT Rule Out COVID-19 11/05/2020 11/05/2020 11/06/2020 1:09 PM CDT Rule Out COVID-19 05/11/2021 05/11/2021 05/13/2021 10:18 AM CDT Rule Out COVID-19 07/13/2021 07/13/2021 07/14/2021 3:04 PM JANITOR AND CLEANER Rule Out COVID-19 07/18/2021 07/18/2021 07/20/2021 1:56 PM JANITOR AND CLEANER COVID-19 07/18/2021 07/18/2021 08/08/2021 11:3 9 PM JANITOR AND CLEANER Rule Out COVID-19 12/18/2021 12/18/2021 12/19/2021 11:34 AM CDT Rule Out COVID-19 02/24/2022 02/24/2022 02/25/2022 1:08 PM CDT Rule Out COVID-19 04/26/2022 04/26/2022 04/26/2022 6:47 AM CDT Rule Out COVID-19 05/17/2022 05/17/2022 05/17/2022 10:20 PM JANITOR AND CLEANER Rule Out COVID-19 06/09/2022 06/09/2022 06/09/2022 9:35 AM JANITOR AND CLEANER COVID-19 06/09/2022 06/09/2022 06/30/2022 11:4 1 PM JANITOR AND CLEANER Rule Out COVID-19 11/10/2022 11/10/2022 11/11/2022 12:17 PM CDT Rule Out COVID-19 03/07/2023 03/07/2023 03/07/2023 1:20 PM CDT Rule Out COVID-19 12/26/2023 12/26/2023 12/26/2023 9:50 AM CDT Assessment Noted Time PHQ-9 Depression Total Score: 9 06/04/20 10:35 AM JANITOR AND CLEANER documented as of this encounter Care Teams Solution Advisor Relationship Specialty Start Date End Date Marija Edgar APRN CNP [address] [address] PCP - General Nurse Practitioner 04/30/20 04/14/23 Esha Grimm PA-C [address] [place] [address] PCP - General Family Medicine 05/04/23 Lita Oseguera Personal Advocate & Liaison (PAL) 02/28/20 03/27/23 Rakesh Cid PA-C [address] [address] Assigned PCP 03/02/20 06/07/20 Chanelle Mccann APRN CNAdam [address] 34[facility] [address] [place] [address] Assigned OBGYN Provider 05/02/2005/09 Lesley Moody, W Community Health Worker 05/30/2005/12 Kyara De La Fuente, RN Specialty Nuclear Medicine Specialist Neurology 06/04/20 03/05/21 Marija Edgar APRN REGRADER [address] [place] [address] Assigned PCP 06/08/20 04/29/23 Mynor Broussard MD [address] [facility] 500 [place] [address] Assigned Surgical Provider 06/01/20 11/28/21 Keisha Dotson MD [address]09 [place] [address] Assigned Neuroscience Provider 06/04/20 04/01/23 Mary Mejia Financial Resource Worker 08/07/20 08/21/20 Stacey Briones, [facility] Lead Nuclear Medicine Specialist Primary Care - CC 08/11/2012/30 Lesley [...] 02/09/21 02/09/21 Diana Desir, [facility] [address] [facility] [place], [place] [address] Pharmacist Pharmacist 04/17/21 Rain Galaviz PA-C [address] [place] [address] [address] [place] [place], [place] [phone] Physician Baseball Inspector And Repairer Dermatology 04/28/21 Summer Lara MD [address] [place] [phone] Assigned OBGYN Provider 05/10/2105/23 Summer Lara MD [address] [place] [address] [phone] Assigned OBGYN Provider 05/31/21 2 Summer Lara MD [address] [place] [address] [phone] Assigned OBGYN Provider 05/24/2105/30 Tavia Wyatt MD [address] [place] [address] Dermatology 07/14/21 SemJohnny mckeon MD [address] [place] [address] Assigned Musculoskeletal Provider 08/30/21 03/17/22 Erica Farrell APRN REGRADER [address] [facility] [address] [place], [place] [address] Nurse Practitioner Cardiovascular Disease 09/09/21 Teresita Bean, [facility] [address] [place] [phone] Pharmacist Pharmacist 09/24/21 09/29/21 Tavia Wyatt MD Assigned Surgical Provider 11/29/21 05/07/22 [facility] [address] [place] [address] Assigned MTM Pharmacist 01/02/22 Rich Barrett MD [address] [facility] [address] [place], [place] [address] Physician Ophthalmology 01/21/22 Neil Kent MD 500 [place] [address] Dermatology 02/24/22 Roney Story DPM [address] [facility] [address] [place], [place] [address] Assigned Musculoskeletal Provider 03/20/22 08/13/22 Erica Farrell APRN REGRADER [address]00 [place] [address] Assigned Heart and Vascular Provider 04/03/22 04/16/[address] [facility] [address] [place] [address] Assigned MTM Pharmacist 04/07/22 Jelena David OD [address] [facility] [place] [address] Assigned Surgical Provider 05/08/22 10/08/22 Galo Burrell MD Assigned Heart and Vascular Provider 04/17/22 06/11/22 Livan Sharif MD [address] [place] [address] Cardiovascular Disease 05/14/22 Livan Sharif MD [address] [place] [address] Assigned Heart and Vascular Provider 06/12/22 07/23/22 Catherine Cm MD [address] [place] [address] Cardiovascular Disease 07/21/22 Valery Veronica PA-C [address]09 [place] [address] Physician Baseball Inspector And Repairer Dermatology 07/21/22 Catherine Cm MD [address] [place] [address] Assigned Heart and Vascular Provider 07/24/22 11/05/22 Johnny Murillo MD [address] [place], [place] [address]00 [place], [place] [address] Assigned Musculoskeletal Provider 08/14/22 10/08/22 Brea Quinn APRN REGRADER 500 [place], [place] [address] Nurse Practitioner Dermatology 09/21/22 Brea Quinn APRN REGRADER [facility]1 [place], [place] [address] Assigned Surgical Provider 10/09/22 [place] [address] [address]38[address] Assigned Musculoskeletal Provider 10/09/22 Livan Sharif MD [address] [facility] [facility] [address] [place], [place] [address] Assigned Heart and Vascular Provider 11/06/22 11/12/22 Catherine Cm MD [address] [facility]00 [place], [place] [address] Assigned Heart and Vascular Provider 11/13/22 05/27/23 Sydnie Martinez, VJ Personal Advocate & Liaison (PAL) Family Medicine 03/28/23 07/31/23 Alfonso Renteria MD [address] [facility] 200 [place], [place] [address] Assigned Neuroscience Provider 04/02/23 Cheng Todd PA-C [address] [place] [address] [phone] Assigned PCP 04/30/23 07/15/23 Armani Radha ARLENE Stovall REGRADER [address] [facility] [address] [place], [place] [address] Assigned Heart and Vascular Provider 05/28/23 Jelena David OD [address] [facility] [place] [address] Ophthalmology 06/15/23 Pao Joseph, VJ Personal Advocate & Liaison (PAL) Nurse 08/01/23 11/07/23 Esha Grimm PA-C [address] [place] [phone] Assigned PCP 07/16/23 Valery Veronica PA-C [address] [place] [address] Physician Baseball Inspector And Repairer Dermatology 09/19/23 Rey Tay MD [address] [place] [address] [phone] Gastroenterology 09/20/23 Rocky Zepeda DO [address] [place] [address] Physician Gastroenterology 09/20/23 Philip Dumont MD [address] [place] [address] Physician Ophthalmology 09/22/23 Meredith Carrera PA-C [address]09 [place] [address] Assigned Gastroenterology Provider 11/01/23 Neil Kent MD [address] [place] [address] Dermatology 11/02/23 [place] [address] [place] [address] Neurological Surgery 12/26/23 documented as of this encounter
--- OUTSIDE RECORDS SUMMARY | 2024-01-07 18:19 | XMS_ITS | Encounter Summary ---
Author Organization [facility] Address [address] [place] [address] Care Team Providers Care Shine Worker Name Role Phone Lita Oseguera Unavailable Unavailable Marija Edgar APRN BELT CONVEYOR DRIER Primary Care Provider Chanelle Gutierrez APRN CNM Unavailab le Kyara De La Fuente RN Unavailable [phone] Marija Edgar APRN BELT CONVEYOR DRIER Unavailable Unavail able Mynor Broussard MD Unavailable [phone] Keisha Dotson MD Unavailable [phone] Mary Mejia Unavailable Unavailable Stacey Briones AIR INTELLIGENCE OFFICER Unavailable Lesley Moody CHW Unavailable [phone] Mary Mejia Unavailable Unavailable Lita Oseguera Unavailable Unavailable Galo Burrell MD Unavailable Unavailable Cristina Wood Unavailable Lesley Moody CHW Unavailable Meredith Bedoya Unavailable Unavailable Cristina Wood Unavailable Diana Desir [facility] Unavailable Rain Galaviz PA-C Unavailable Summer aLra MD Unavailable [phone] Summer Lara MD Unavailable [phone] Summer aLra MD Unavailable + [phone] Tavia Wyatt MD Unavailable Unavailable SemJohnny mckeon MD Unavailable +1- Erica Farrell BILL DISTRIBUTOR BELT CONVEYOR DRIER Unavailable + BeanTeresita RPH Unavailable Tavia Wyatt MD Unavailable Unavailable Diana Desir H Unavailable [phone] Rich Barrett MD Unavailable [phone] Neil Kent MD Unavailable Roney Story DPM Unavailable [phone] Erica Farrell BILL DISTRIBUTOR BELT CONVEYOR DRIER Unavailable + Diana Desir RPH Unavailable [phone] Jelena David OD Unavailable [phone] Galo Burrell MD Unavailable Unavailable Livan Sharif MD Unavailable + Livan Sharif MD Unavailable + Catherine Cm MD Unavailable + Valery Veronica PA-C Unavailable [phone] Catherine Cm MD Unavailable + Johnny Murillo MD Unavailable +1- Brea Quinn BILL DISTRIBUTOR BELT CONVEYOR DRIER Unavailable [phone] Brea Quinn BILL DISTRIBUTOR BELT CONVEYOR DRIER Unavailable [phone] Jose Francisco Johnson MD Unavailable Livan Sharif MD Unavailable + Catherine Cm MD Unavailable + Sydnie Martinez RN Unavailable Unavailable Alfonso Renteria MD Unavailable [phone] Esha Grimm PAUcheC Primary Care Provider Cheng Todd PA-C Unavailable Radha Lomeli APRN BELT CONVEYOR DRIER Unavailable Jelena David OD Unavailable Pao Joseph RN Unavailable Unavailable Esha GrimmC Unavailable Valery Veronica PA-C Unavailable Rey Tay MD Unavailable Rocky Zepeda DO Unavailable Philip Dumont MD Unavailable Meredith Carrera-C Unavailable [phone] Neil Kent MD Unavailable Juan Pablo Emmanuel MD Unavailable [phone] Reason for Visit * Reason Comments Medication Refill Encounter Details Date Type Department Care Team (Late st Contact Info) Description 07/14/[address] [address] Rakesh Cid PA-C [address] [place] [address] Medication Refill Social History Tobacco [...] COVID-19? No / Unsure 06/24/2020 3:01 PM ADAPTIVE PHYSICAL EDUCATION TEACHER documented as of this encounter Miscellaneous Notes * Telephone Encounter - Estephania Black RN - 07/16/2020 11:38 AM ADAPTIVE PHYSICAL EDUCATION TEACHER Routing refill request to provider for review/approval because: Labs out of range: PHQ9> 4 patient was seen 3 weeks ago. Estephania Black RN Flex TIVE PHYSICAL EDUCATION TEACHER * Telephone Encounter - Brea Perry RN - 07/16/2020 11:34 AM ADAPTIVE PHYSICAL EDUCATION TEACHER Routing to correct clinic. TIVE PHYSICAL EDUCATION TEACHER documented in this encounter Plan of Treatment Upcoming Encounters Date Type Department Care Team (Late st Contact Info) Description 01/09/2024 10:15 AM CDT Office Visit [facility] Neurology [address], [address] [place] [address] Genny Hyman PA-C [facility] Epilepsy Care [address] [facility] [address] [place], [place] [address] [place] [address] [address] [facility] [address] [place], [place] [address] 02/06/2024 10:00 AM CDT Office Visit [facility] [address] [address] Neil Kent MD 500 [place], [place] [id number] 03/06/2024 3:00 PM CDT Office Visit [facility] Heart [facility] [address] [place] [phone] Radha Lomeli, BILL DISTRIBUTOR BELT CONVEYOR DRIER [address] [place] [address] 03/07/2024 9:00 AM CDT Hospital Encounter [address] [place] [phone] Rocky Zepeda DO [address] [place], [place] [address] 03/07/2024 9:00 AM CDT - 03/07/2024 9:30 AM CDT Surgery [address] [place] [phone] Rocky Zepeda DO [address] [place] [address] Esophagoscopy, gastroscopy, duodenoscopy (EGD), combined Scheduled Procedures Name Priority Associated Diagnoses Date/Ti oh ESOPHAGOGASTRODUODENOSCOPY Eosinophilic esophagitis Esophageal dysphagia 03/07/2024 9:00 AM CDT documented as of this encounter Visit Diagnoses Diagnosis Anxiety Anxiety state, unspecified Eosinophilic esophagitis Esophageal dysphagia Dysphagia, pharyngoesophageal phase documented in this encounter Additional Health Concerns Infection Onset Date Last Indicated Resolved Time Rule Out COVID-19 07/30/2020 07/30/2020 07/30/2020 7:11 PM ADAPTIVE PHYSICAL EDUCATION TEACHER Rule Out COVID-19 08/30/2020 08/30/2020 08/30/2020 5:05 PM ADAPTIVE PHYSICAL EDUCATION TEACHER Rule Out COVID-19 09/24/2020 09/24/2020 09/24/2020 9:24 AM CDT Rule Out COVID-19 11/05/2020 11/05/2020 11/06/2020 1:09 PM CDT Rule Out COVID-19 05/11/2021 05/11/2021 05/13/2021 10:18 AM CDT Rule Out COVID-19 07/13/2021 07/13/2021 07/14/2021 3:04 PM ADAPTIVE PHYSICAL EDUCATION TEACHER Rule Out COVID-19 07/18/2021 07/18/2021 07/20/2021 1:56 PM ADAPTIVE PHYSICAL EDUCATION TEACHER COVID-19 07/18/2021 07/18/2021 08/08/2021 11:3 9 PM ADAPTIVE PHYSICAL EDUCATION TEACHER Rule Out COVID-19 12/18/2021 12/18/2021 12/19/2021 11:34 AM CDT Rule Out COVID-19 02/24/2022 02/24/2022 02/25/2022 1:08 PM CDT Rule Out COVID-19 04/26/2022 04/26/2022 04/26/2022 6:47 AM CDT Rule Out COVID-19 05/17/2022 05/17/2022 05/17/2022 10:20 PM ADAPTIVE PHYSICAL EDUCATION TEACHER Rule Out COVID-19 06/09/2022 06/09/2022 06/09/2022 9:35 AM ADAPTIVE PHYSICAL EDUCATION TEACHER COVID-19 06/09/2022 06/09/2022 06/30/2022 11:4 1 PM ADAPTIVE PHYSICAL EDUCATION TEACHER Rule Out COVID-19 11/10/2022 11/10/2022 11/11/2022 12:17 PM CDT Rule Out COVID-19 03/07/2023 03/07/2023 03/07/2023 1:20 PM CDT Rule Out COVID-19 12/26/2023 12/26/2023 12/26/2023 9:50 AM CDT Assessment Noted Time PHQ-9 Depression Total Score: 9 06/25/20 20 7:04 AM ADAPTIVE PHYSICAL EDUCATION TEACHER documented as of this encounter Care Teams Shine Worker Relationship Specialty Start Date End Date Marija Edgar APRN CNP PCP - General Nurse Practitioner 04/30/20 04/14/23 Esha Grimm PA-C [address] [place] [address] PCP - General Family Medicine 05/04/23 Lita Oseguera Personal Advocate & Liaison (PAL) 02/28/20 03/27/23 Chanelle Mccann APRN CNM [address] [facility] [address] [place] [address] Assigned OBGYN Provider 05/02/2005/09 Kyara De La Fuente, RN Specialty Tray Checker Neurology 06/04/20 03/05/21 Marija Edgar APRN BELT CONVEYOR DRIER Assigned PCP 06/08/20 04/29/23 Mynor Broussard MD [address] [facility] 500 [place] [address] Assigned Surgical Provider 06/01/20 11/28/21 Keisha Dotson MD [address] [place], [place] [address] Assigned Neuroscience Provider 06/04/20 04/01/23 Mary Mejia Financial Resource Worker 08/07/20 08/21/20 Stacey Briones, [facility] Lead Tray Checker Primary Care - CC 08/11/2012/30 Lesley Moody, [facility] Community Health Worker 08/11/2010/01 Mary Mejia Financial Resource Worker 09/02/20 10/06/20 Lita Oseguera Personal Advocate & Liaison (PAL) Family Medicine 09/10/20 09/21/20 Galo Burrell MD Assigned Heart and Vascular Provider 10/05/20 04/02/22 Cristina Wood Financial Resource Worker 10/07/20 10/14/20 Lesley Moody, [facility] Community Health Worker 10/23/2012/30 Meredith Bedoya Financial Resource Worker 10/23/20 11/23/20 Cristina Wood Financial Resource Worker 02/09/21 02/09/21 Diana Desir, [facility] [address] [place] [address] Pharmacist Pharmacist 04/17/21 Rain Galaviz PA-C [address] [place] [address] [place] [address] Physician Matchbook Assembler Dermatology 04/28/21 Summer Lara MD [address] [place], [place] [address] Assigned OBGYN Provider 05/10/2105/23 Summer Lara MD [address] [place], [place] [id number] Assigned OBGYN Provider 05/31/21 2 Summer Lara MD [address] [place], [place] [address] Assigned OBGYN Provider 05/24/2105/30 Tavia Wyatt MD [address] [place] [address] Dermatology 07/14/21 oJhnny Murillo MD [address] [facility] [address] [place] [address] Assigned Musculoskeletal Provider 08/30/21 03/17/22 StoErica pereira APRN BELT CONVEYOR DRIER [address] [facility] [address] [place] [address] Nurse Practitioner Cardiovascular Disease 09/09/21 Teresita Bean [facility] [address] [facility] [place] [address] Pharmacist Pharmacist 09/24/21 09/29/21 Tavia Wyatt MD Assigned Surgical Provider 11/29/21 05/07/22 Diana Desir [facility] [address] [place] [address] Assigned MTM Pharmacist 01/02/22 Rich Barrett MD [address] [address] Physician Ophthalmology 01/21/22 Neil Kent MD [address] [place] [address] Dermatology 02/24/22 Roney Story DPM [address] [facility] [address] [place], [place] [address] Assigned Musculoskeletal Provider 03/20/22 08/13/22 Erica Farrell APRN BELT CONVEYOR DRIER [address] [place] [address] Assigned Heart and Vascular Provider 04/03/22 04/16/22 Diana Desir, [facility] [address] [place] [address] Assigned MTM Pharmacist 04/07/22 Jelena David OD [address] [facility] [place] [address] Assigned Surgical Provider 05/08/22 10/08/22 Galo Burrell MD Assigned Heart and Vascular Provider 04/17/22 06/11/22 Livan Sharif MD [address] [place], [place] [address] Cardiovascular Disease 05/14/22 Livan Sharif MD [address] [place], [place] [address] Assigned Heart and Vascular Provider 06/12/22 07/23/22 Catherine Cm MD [address] [place] [address] Cardiovascular Disease 07/21/22 Valery Veronica, PAUcheC [address] [place], [place] [address] Physician Matchbook Assembler Dermatology 07/21/22 Catherine Cm MD [address] [place] [address] Assigned Heart and Vascular Provider 07/24/22 11/05/22 Johnny Murillo MD [address] [id number] Assigned Musculoskeletal Provider 08/14/22 10/08/22 Brea Quinn APRN BELT CONVEYOR DRIER 500 [place] [address] Nurse Practitioner Dermatology 09/21/22 Brea Quinn APRN BELT CONVEYOR DRIER [address] [facility] [place], [place] [address] Assigned Surgical Provider 10/09/22 [place] [address] [facility] [address] [place], [place] [address] Assigned Musculoskeletal Provider 10/09/22 Livan Sharif MD [address] [facility] [address] [place] [address] Assigned Heart and Vascular Provider 11/06/22 11/12/22 Catherine Cm MD [address] [facility] [address] [place] [address] Assigned Heart and Vascular Provider 11/13/22 05/27/23 Sydnie Martinez RN Personal Advocate & Liaison (PAL) Family Medicine 03/28/23 07/31/23 Alfonso Renteria MD [address] [facility] 200 [place], [place] [address] Assigned Neuroscience Provider 04/02/23 Cheng Todd PA-C [address] [place] [address] Assigned PCP 04/30/23 07/15/23 Radha Lomeli APRN BELT CONVEYOR DRIER [address] [place], [place] [address] Assigned Heart and Vascular Provider 05/28/23 Jelena David OD [address] [facility] [place] [address] Ophthalmology 06/15/23 Pao Joseph, VJ Personal Advocate & Liaison (PAL) Nurse 08/01/23 11/07/23 Esha Grimm PA-C [address] [place] [address] Assigned PCP 07/16/23 Valery Veronica PA-C [address] [place] [id number] Physician Matchbook Assembler Dermatology 09/19/23 Rey Tay MD [address] [place] [address]37[address] Gastroenterology 09/20/23 Rocky Zepeda DO [address] [place] [address] [phone] Physician Gastroenterology 09/20/23 Philip Dumont MD [address] [place] [address] Physician Ophthalmology 09/22/23 Meredith Carrera PA-C [address] [place] [address] Assigned Gastroenterology Provider 11/01/23 Neil Kent MD [address] [place] [address] Dermatology 11/02/23 [place] [address] [place] [address] Neurological Surgery 12/26/23 documented as of this encounter
--- OUTSIDE RECORDS SUMMARY | 2024-01-07 18:19 | XMS_ITS | Encounter Summary ---
Author Organization [facility] Address [address] [place] [address] Care Team Providers Care Photofinishing Laboratory Worker Name Role Phone Lita Oseguera Unavailable Unavailable Marija Edgar APRN TRIM CARPENTER Primary Care Provider Chanelle Gutierrez APRN CNM Unavailab le Kyara De La Fuente RN Unavailable [phone] Marija Edgar APRN TRIM CARPENTER Unavailable Unavail able Mynor Broussard MD Unavailable [phone] Keisha Dotson MD Unavailable [phone] Mary Mejia Unavailable Unavailable Stacey Briones TRANSIT PLANNING MANAGER Unavailable [phone] Lesley Moody CHW Unavailable Mary Mejia Unavailable Unavailable Lita Oseguera Unavailable Unavailable Galo Burrell MD Unavailable Unavailable Cristina Wood Unavailable Lesley Moody CHW Unavailable [phone] Meredith Bedoya Unavailable Unavailable Cristina Wood Unavailable Diana Desir [facility] Unavailable [phone] Rain Galaviz PA-C Unavailable [phone] Summer Lara MD Unavailable [phone] Summer Lara MD Unavailable [phone] Summer Lara MD Unavailable + [phone] Tavia Wyatt MD Unavailable Unavailable SemJohnny mckeon MD Unavailable +1- Erica Farrell JEWELRY MODEL MAKER TRIM CARPENTER Unavailable + BeanTeresita RPH Unavailable Tavia Wyatt MD Unavailable Unavailable Diana Desir H Unavailable [phone] Rich Barrett MD Unavailable [phone] Neil Kent MD Unavailable Roney Story DPM Unavailable [phone] Erica Farrell JEWELRY MODEL MAKER TRIM CARPENTER Unavailable + Diana Desir RPH Unavailable [phone] Jelena David OD Unavailable [phone] Galo Burrell MD Unavailable Unavailable Livan Sharif MD Unavailable + Livan Sharif MD Unavailable + Catherine Cm MD Unavailable + Valery Veronica PA-C Unavailable [phone] Catherine Cm MD Unavailable + Johnny Murillo MD Unavailable +1- Brea Quinn JEWELRY MODEL MAKER TRIM CARPENTER Unavailable [phone] Brea Quinn JEWELRY MODEL MAKER TRIM CARPENTER Unavailable [phone] Jose Francisco Johnson MD Unavailable Livan Sharif MD Unavailable + Catherine Cm MD Unavailable + Sydnie Martinez RN Unavailable Unavailable Alfonso Renteria MD Unavailable [phone] Esha Grimm PA-C Primary Care Provider Cheng Todd PA-C Unavailable Radha Lomeli APRN TRIM CARPENTER Unavailable Jelena David OD Unavailable Pao Joseph RN Unavailable Unavailable Esha Grimm PA-C Unavailable [phone] Valery Veronica PA-C Unavailable Rey Tay MD Unavailable Rocky Zepeda DO Unavailable Philip Dumont MD Unavailable [phone] Meredith Carrera PA-C Unavailable [phone] Neil Kent MD Unavailable Juan Pablo Emmanuel MD Unavailable Encounter Details Date Type Department Care Team (Late st Contact Info) Description 07/10/2020 MyC Medical Advice [facility] [place] [address] [place] [address] Mynor Broussard MD [address] [place] [address] Social History Tobacco Use Types [...] COVID-19? No / Unsure 06/24/2020 3:01 PM RAILWAY SIGNAL OPERATOR documented as of this encounter Plan of Treatment Upcoming Encounters Date Type Department Care Team (Late st Contact Info) Description 01/09/2024 10:15 AM CDT Office Visit [facility] Neurology [facility] [place] [address] [facility], [address] [place] [phone] Genny Hyman PA-C [facility] [address] [facility] [address] [place], [place] [address] [place] [address] [place], [place] [address] 02/06/2024 10:00 AM CDT Office Visit [facility] [address] [phone] Neil Kent MD 500 [place], [place] [address] 03/06/2024 3:00 PM CDT Office Visit [facility] Heart [facility] [address] [facility] [address] [place] [phone] Radha Lomeli, JEWELRY MODEL MAKER TRIM CARPENTER [address] [place], [place] [address] 03/07/2024 9:00 AM CDT Hospital Encounter [facility] [address] [facility] [address] [place] [phone] Rocky Zepeda DO [address] [place], [place] [address] 03/07/2024 9:00 AM CDT - 03/07/2024 9:30 AM CDT [facility] [address] [facility] [address] [place] [address] Rocky Zepeda DO 500 [place] [address] Esophagoscopy, gastroscopy, duodenoscopy (EGD), combined Scheduled Procedures Name Priority Associated Diagnoses Date/Ti ky ESOPHAGOGASTRODUODENOSCOPY Eosinophilic esophagitis Esophageal dysphagia 03/07/2024 9:00 AM CDT documented as of this encounter Visit Diagnoses Not on filedocumented in this encounter Additional Health Concerns Infection Onset Date Last Indicated Resolved Time Rule Out COVID-19 07/30/2020 07/30/2020 07/30/2020 7:11 PM RAILWAY SIGNAL OPERATOR Rule Out COVID-19 08/30/2020 08/30/2020 08/30/2020 5:05 PM RAILWAY SIGNAL OPERATOR Rule Out COVID-19 09/24/2020 09/24/2020 09/24/2020 9:24 AM CDT Rule Out COVID-19 11/05/2020 11/05/2020 11/06/2020 1:09 PM CDT Rule Out COVID-19 05/11/2021 05/11/2021 05/13/2021 10:18 AM CDT Rule Out COVID-19 07/13/2021 07/13/2021 07/14/2021 3:04 PM RAILWAY SIGNAL OPERATOR Rule Out COVID-19 07/18/2021 07/18/2021 07/20/2021 1:56 PM RAILWAY SIGNAL OPERATOR COVID-19 07/18/2021 07/18/2021 08/08/2021 11:3 9 PM RAILWAY SIGNAL OPERATOR Rule Out COVID-19 12/18/2021 12/18/2021 12/19/2021 11:34 AM CDT Rule Out COVID-19 02/24/2022 02/24/2022 02/25/2022 1:08 PM CDT Rule Out COVID-19 04/26/2022 04/26/2022 04/26/2022 6:47 AM CDT Rule Out COVID-19 05/17/2022 05/17/2022 05/17/2022 10:20 PM RAILWAY SIGNAL OPERATOR Rule Out COVID-19 06/09/2022 06/09/2022 06/09/2022 9:35 AM RAILWAY SIGNAL OPERATOR COVID-19 06/09/2022 06/09/2022 06/30/2022 11:4 1 PM RAILWAY SIGNAL OPERATOR Rule Out COVID-19 11/10/2022 11/10/2022 11/11/2022 12:17 PM CDT Rule Out COVID-19 03/07/2023 03/07/2023 03/07/2023 1:20 PM CDT Rule Out COVID-19 12/26/2023 12/26/2023 12/26/2023 9:50 AM CDT Assessment Noted Time PHQ-9 Depression Total Score: 9 06/25/20 7:04 AM RAILWAY SIGNAL OPERATOR documented as of this encounter Care Teams Photofinishing Laboratory Worker Relationship Specialty Start Date End Date Marija Edgar APRN TRIM CARPENTER PCP - General Nurse Practitioner 04/30/20 04/14/23 Esha Grimm PA-C [address] [place] [phone] PCP - General Family Medicine 05/04/23 Lita Oseguera Personal Advocate & Liaison (PAL) 02/28/20 03/27/23 Chanelle Mccann APRN CNAdam [address] [facility] [address] [place], [place] [address] Assigned OBGYN Provider 05/02/2005/09 Kyara De La Fuente, RN Specialty Core Sticker Neurology 06/04/20 03/05/21 Marija Edgar APRN TRIM CARPENTER Assigned PCP 06/08/20 04/29/23 Mynor Broussard MD [address] [facility] 500 [place] [address] Assigned Surgical Provider 06/01/20 11/28/21 Keisha Dotson MD [address] [place], [place] [address] Assigned Neuroscience Provider 06/04/20 04/01/23 Mary Mejia Financial Resource Worker 08/07/20 08/21/20 Stacey Briones, [facility] Lead Core Sticker Primary Care - CC 08/11/2012/30 Lesley Moody, [facility] Community Health Worker 08/11/2010/01 Mary Mejia Financial Resource Worker 09/02/20 10/06/20 Lita Oseguera Personal Advocate & Liaison (PAL) Family Medicine 09/10/20 09/21/20 Galo Burrell MD Assigned Heart and Vascular Provider 10/05/20 04/02/22 Cristina Wood Financial Resource Worker 10/07/20 10/14/20 Lesley Moody, [facility] Community Health Worker 10/23/2012/30 Meredith Bedoya Financial Resource Worker 10/23/20 11/23/20 Cristina Wood Financial Resource Worker 02/09/21 02/09/21 Diana Desir, [facility] [address] [place] [address] Pharmacist Pharmacist 04/17/21 Rain Galaviz PA-C [address] [place] [address] [address] [facility] [address] Physician Porcelain Buildup Assistant Dermatology 04/28/21 Summer Lara MD [address] [place] [address] Assigned OBGYN Provider 05/10/2105/23 Summer Lara MD [address] [place] [address] Assigned OBGYN Provider 05/31/21 Summer Lara MD [address] [place] [address] Assigned OBGYN Provider 05/24/2105/30 Tavia Wyatt MD [address] [place] [address] [facility] 07/14/21 Johnny Murillo MD [address] [place] [address] Assigned Musculoskeletal Provider 08/30/21 03/17/22 Erica Farrell APRN TRIM CARPENTER [address] [facility] [address] [place] [address] Nurse Practitioner Cardiovascular Disease 09/09/21 Teresita Bean [facility] [address] [place] [address] Pharmacist Pharmacist 09/24/21 09/29/21 Tavia Wyatt MD Assigned Surgical Provider 11/29/21 05/07/22 Diana Desir, [facility] [address] [place] [address] Assigned MTM Pharmacist 01/02/22 Rich Barrett MD [address] [address] Physician Ophthalmology 01/21/22 Neil Kent MD [address] [place], [place] [phone] Dermatology 02/24/22 Roney Story DPM [address] [email or web address] [address] [place], [place] [address] Assigned Musculoskeletal Provider 03/20/22 08/13/22 Erica Farrell APRN TRIM CARPENTER [address] [place] [address] Assigned Heart and Vascular Provider 04/03/22 04/16/22 Diana Desir, [facility] [address] [place] [address] Assigned MTM Pharmacist 04/07/22 [place] David [place] [address] [facility] [place] [address] Assigned Surgical Provider 05/08/22 10/08/22 Galo Burrell MD Assigned Heart and Vascular Provider 04/17/22 06/11/22 Livan Sharif MD [address] [place] [address] Cardiovascular Disease 05/14/22 Livan Sharif MD [address] [facility] [address] [place] [address] Assigned Heart and Vascular Provider 06/12/22 07/23/22 Catherine Cm MD [address] [facility] [address] [place] [address] Cardiovascular Disease 07/21/22 Valery Veronica, PA-C [address] [place] [address] Physician Porcelain Buildup Assistant Dermatology 07/21/22 Catherine Cm MD [address] [facility] [place] [address] Assigned Heart and Vascular Provider 07/24/22 11/05/22 Johnny Murillo MD [address] [place] [address] 767874 Assigned Musculoskeletal Provider 08/14/22 10/08/22 Brea Quinn APRN TRIM CARPENTER [address] [place] [address] 715655 Nurse Practitioner Dermatology 09/21/22 Brea Quinn APRN TRIM CARPENTER [address] [place] [address] [place] 9[address]672 Assigned Surgical Provider 10/09/22 [place] [address] [place] [address] Assigned Musculoskeletal Provider 10/09/22 Livan Sharif MD [address] [place] [address] Assigned Heart and Vascular Provider 11/06/22 11/12/22 Catherine Cm MD [address] [place] [address] Assigned Heart and Vascular Provider 11/13/22 05/27/23 Sydnie Martinez RN Personal Advocate & Liaison (PAL) Family Medicine 03/28/23 07/31/23 Alfonso Renteria MD [address] [facility] [address] [place] [address] Assigned Neuroscience Provider 04/02/23 Cheng Todd PA-C [address] [place] [address] Assigned PCP 04/30/23 07/15/23 Radha Lomeli APRN TRIM CARPENTER [address] [place] [address] Assigned Heart and Vascular Provider 05/28/23 Jelena David OD [address] [facility] [place] [address] Ophthalmology 06/15/23 Pao Joseph, VJ Personal Advocate & Liaison (PAL) Nurse 08/01/23 11/07/23 Esha Grimm PA-C [address] [place] [phone] Assigned PCP 07/16/23 Valery Veronica PA-C [address] [place] [address] Physician Porcelain Buildup Assistant Dermatology 09/19/23 Rey Tay MD [address] [place] [address] MD Gastroenterology 09/20/23 Rocky Zepeda DO [address] [place] [address] Physician Gastroenterology 09/20/23 Philip Dumont MD [address] [place] [address] Physician Ophthalmology 09/22/23 Meredith Carrera PA-C [address] [place] [address] Assigned Gastroenterology Provider 11/01/23 Neil Kent MD [address] [place] [address] Dermatology 11/02/23 [place] [address] [place] [address] Neurological Surgery 12/26/23 documented as of this encounter
--- OUTSIDE RECORDS SUMMARY | 2024-01-07 18:19 | XMS_ITS | Encounter Summary ---
Author Organization [facility] Address [address] [place] [address] Care Team Providers Care Mobile Device Developer Name Role Phone Lita Oseguera Unavailable Unavailable Rakesh Cid PA-C Unavailable [phone] Marija Edgar CLOTH CUTTING MACHINE OPERATOR MOBILITY ARCHITECT Primary Care Provider Chanelle Gutierrez CLOTH CUTTING MACHINE OPERATOR CNM Unavailab le Lesley Moody CHW Unavailable Kyara De La Fuente RN Unavailable [phone] Marija Edgar APRN MOBILITY ARCHITECT Unavailable Unavail able Mynor Broussard MD Unavailable [phone] Keisha Dotson MD Unavailable [phone] Mary Mejia Unavailable Unavailable Stacey Briones CHANNEL MARKETING SPECIALIST Unavailable [phone] Lesley Moody CHW Unavailable Mary Mejia Unavailable Unavailable Lita Oseguera Unavailable Unavailable Galo Burrell MD Unavailable Unavailable Cristina Wood Unavailable Lesley Moody CHW Unavailable [phone] Meredith Bedoya Unavailable Unavailable Cristina Wood Unavailable Diana Desir RPH Unavailable [phone] AnastaciaKailaRainsuki Paredes PA-C Unavailable [phone] Summer Lara MD Unavailable Summer Lara MD Unavailable [phone] Summer Lara MD Unavailable [phone] Tavia Wyatt MD Unavailable Unavailable Johnny Murillo MD Unavailable +[phone]- Erica Farrell CLOTH CUTTING MACHINE OPERATOR MOBILITY ARCHITECT Unavailable + VikasTerseita [facility] Unavailable Tavia Wyatt MD Unavailable Unavailable Diana Desir [facility] Unavailable [phone] Rich Barrett MD Unavailable [phone] Neil Kent MD Unavailable Roney Story DPM Unavailable [phone] Eriac Farrell CLOTH CUTTING MACHINE OPERATOR MOBILITY ARCHITECT Unavailable Diana Desir [facility] Unavailable [phone] Jelena David OD Unavailable Galo Burrell MD Unavailable Unavailable Livan Sharif MD Unavailable + Livan Sharif MD Unavailable + Catherine Cm MD Unavailable + Valery Veronica PA-C Unavailable [phone] Catherine Cm MD Unavailable + Johnny Murillo MD Unavailable +1- Brea Quinn CLOTH CUTTING MACHINE OPERATOR MOBILITY ARCHITECT Unavailable [phone] Brea Quinn CLOTH CUTTING MACHINE OPERATOR MOBILITY ARCHITECT Unavailable [phone] Jose Francisco Johnson MD Unavailable Livan Sharif MD Unavailable Catherine Cm MD Unavailable + Sydnie Martinez RN Unavailable Unavailable Alfonso Renteria MD Unavailable [phone] Esha Grimm PA-C Primary Care Provider Cheng Todd PA-C Unavailable ArmaniRadha APRN MOBILITY ARCHITECT Unavailable [phone] Jelena David OD Unavailable Pao Joseph RN Unavailable Unavailable Esha Grimm PA-C Unavailable [phone] Valery Veronica PA-C Unavailable Rey Tay MD Unavailable Rocky Zepeda DO Unavailable Philip Dumont MD Unavailable [phone] Meredith Carrera PA-C Unavailable [phone] Neil Kent MD Unavailable Juan Pablo Emmanuel MD Unavailable [phone] Encounter Details Date Type Department Care Team (Late st Contact Info) Description 05/16/[address] [facility] [address] [place] [phone] Jerome Ferrell, RN Social History Tobacco [...] COVID-19? No / Unsure 05/12/2020 9:03 AM TELECOMMUNICATIONS REPAIRER documented as of this encounter Plan of Treatment Upcoming Encounters Date Type Department Care Team (Late st Contact Info) Description 01/09/2024 10:15 AM CDT Office Visit [facility] Neurology [facility] [address] [facility], [address] [place] [phone] Genny Hyman PA-C [facility] [address] [facility] [address] [place], [place] [address] [place] [address] [facility] [address] [place], [place] [address] 02/06/2024 10:00 AM CDT Office Visit [facility] [address] [phone] Neil Kent MD [address] [place], [place] [address] 03/06/2024 3:00 PM CDT Office Visit [facility] Heart [facility] [address] [facility] [address] [place] [phone] Radha Lomeli, ARLENE MOBILITY ARCHITECT [address] [place] [address] 03/07/2024 9:00 AM CDT Hospital Encounter [facility] [address] [facility] [address] 5th [place] [phone] Rocky Zepeda DO [address] [place], [place] [address] 03/07/2024 9:00 AM CDT - 03/07/2024 9:30 AM CDT [facility] [address] [facility] 5th [place] [phone] Rocky Zepeda DO [address] [place] [address] Esophagoscopy, gastroscopy, duodenoscopy (EGD), combined Scheduled Procedures Name Priority Associated Diagnoses Date/Ti tn ESOPHAGOGASTRODUODENOSCOPY Eosinophilic esophagitis Esophageal dysphagia 03/07/2024 9:00 AM CDT documented as of this encounter Visit Diagnoses Not on filedocumented in this encounter Additional Health Concerns Infection Onset Date Last Indicated Resolved Time Rule Out COVID-19 07/30/2020 07/30/2020 07/30/2020 7:11 PM TELECOMMUNICATIONS REPAIRER Rule Out COVID-19 08/30/2020 08/30/2020 08/30/2020 5:05 PM TELECOMMUNICATIONS REPAIRER Rule Out COVID-19 09/24/2020 09/24/2020 09/24/2020 9:24 AM CDT Rule Out COVID-19 11/05/2020 11/05/2020 11/06/2020 1:09 PM CDT Rule Out COVID-19 05/11/2021 05/11/2021 05/13/2021 10:18 AM CDT Rule Out COVID-19 07/13/2021 07/13/2021 07/14/2021 3:04 PM TELECOMMUNICATIONS REPAIRER Rule Out COVID-19 07/18/2021 07/18/2021 07/20/2021 1:56 PM TELECOMMUNICATIONS REPAIRER COVID-19 07/18/2021 07/18/2021 08/08/2021 11:3 9 PM TELECOMMUNICATIONS REPAIRER Rule Out COVID-19 12/18/2021 12/18/2021 12/19/2021 11:34 AM CDT Rule Out COVID-19 02/24/2022 02/24/2022 02/25/2022 1:08 PM CDT Rule Out COVID-19 04/26/2022 04/26/2022 04/26/2022 6:47 AM CDT Rule Out COVID-19 05/17/2022 05/17/202205/1705/17/2022 10:20 PM TELECOMMUNICATIONS REPAIRER Rule Out COVID-19 06/09/2022 06/09/2022 06/09/2022 9:35 AM TELECOMMUNICATIONS REPAIRER COVID-19 06/09/2022 06/09/2022 06/30/2022 11:4 1 PM TELECOMMUNICATIONS REPAIRER Rule Out COVID-19 11/10/2022 11/10/2022 11/11/2022 12:17 PM CDT Rule Out COVID-19 03/07/2023 03/07/2023 03/07/2023 1:20 PM CDT Rule Out COVID-19 12/26/2023 12/26/2023 12/26/2023 9:50 AM CDT Assessment Noted Time PHQ-9 Depression Total Score: 12 020 2:40 PM CDT documented as of this encounter Care Teams Mobile Device Developer Relationship Specialty Start Date End Date Marija Edgar APRN MOBILITY ARCHITECT [address] [place] [address] PCP - General Nurse Practitioner 04/30/20 04/14/23 Esha Grimm PA-C [address] [place] [phone] PCP - General Family Medicine 05/04/23 Lita Oseguera Personal Advocate & Liaison (PAL) 02/28/20 03/27/23 Rakesh Cid PA-C [address] [place] [address] Assigned PCP 03/02/20 06/07/20 Chanelle Mccann APRN CNM [address] [place] [address] Assigned OBGYN Provider 05/02/2005/09 Lesley Moody, W Community Health Worker 05/30/2005/12 Kyara De La Fuente, RN Specialty Seal Mixing Operator Neurology 06/04/20 03/05/21 Marija Edgar APRN MOBILITY ARCHITECT [address] [place] [address] Assigned PCP 06/08/20 04/29/23 Mynor Broussard MD [address] [phone] Assigned Surgical Provider 06/01/20 11/28/21 Keisha Dotson MD [address] [place], [place] [address] Assigned Neuroscience Provider 06/04/20 04/01/23 Mary Mejia Financial Resource Worker 08/07/20 08/21/20 Stacey Briones, [facility] Lead Seal Mixing Operator Primary Care - CC 08/11/2012/30 Lesley Moody, [facility] Community Health Worker 08/11/2010/01 Mary Mejia Financial Resource Worker 09/02/20 10/06/20 Lita Oseguera Personal Advocate & Liaison (PAL) Family Medicine 09/10/20 09/21/20 Galo Burrell MD Assigned Heart and Vascular Provider 10/05/20 04/02/22 Cristina Wood Financial Resource Worker 10/07/20 10/14/20 Lesley Moody, [facility] Community Health Worker 10/23/2012/30 Meredith Bedoya Financial Resource Worker 10/23/20 11/23/20 Cristina Wood Financial Resource Worker 02/09/21 02/09/21 Diana Desir, [facility] [address] [place] [address] Pharmacist Pharmacist 04/17/21 Rain Galaviz PA-C [address] [place] [address] [address] [facility] [place] [address] Physician Cannery Worker Dermatology 04/28/21 Summer Lara MD [address] [place] [address] Assigned OBGYN Provider 05/10/2105/23 Summer Lara MD [address] [place] [address] Assigned OBGYN Provider 05/31/21 Summer Lara MD [address] [place] [address] Assigned OBGYN Provider 05/24/2105/30 Tavia Wyatt MD [address] [place] [address] Dermatology 07/14/21 Johnny Murillo MD [address] [place] [address] Assigned Musculoskeletal Provider 08/30/21 03/17/22 Erica Farrell APRN MOBILITY ARCHITECT [address] [facility] [facility] [address] [address] [place] [address] Nurse Practitioner Cardiovascular Disease 09/09/21 Teresita Bean [facility] [address] [facility] [place] [address] Pharmacist Pharmacist 09/24/21 09/29/21 Tavia Wyatt MD Assigned Surgical Provider 11/29/21 05/07/22 [facility] [address] [place] [address] Assigned MTM Pharmacist 01/02/22 Rich Barrett MD [address] [address] Physician Ophthalmology 01/21/22 Neil Kent MD [address] [place], [place] [phone] Dermatology 02/24/22 Roney Story DPM [address] [facility] [address] [place], [place] [address] Assigned Musculoskeletal Provider 03/20/22 08/13/22 Erica Farrell APRN MOBILITY ARCHITECT [address] [place] [address] Assigned Heart and Vascular Provider 04/03/22 04/16/22 Diana Desir, [facility] [address] [place] [address] Assigned MTM Pharmacist 04/07/22 Jelena David OD [address] [place] [address] Assigned Surgical Provider 05/08/22 10/08/22 Galo Burrell MD Assigned Heart and Vascular Provider 04/17/22 06/11/22 Livan Sharif MD [address] [place] [address] Cardiovascular Disease 05/14/22 Livan Sharif MD [address] [place], [place] [address] Assigned Heart and Vascular Provider 06/12/22 07/23/22 Catherine Cm MD [address] [place], [place] [address] Cardiovascular Disease 07/21/22 Valery Veronica PAUcheC [address] [place] [address] Physician Cannery Worker Dermatology 07/21/22 Catherine Cm MD [address] [place], [place] 26[address] Assigned Heart and Vascular Provider 07/24/22 11/05/22 Johnny Murillo MD [facility] [address] 4[address] Assigned Musculoskeletal Provider 08/14/22 10/08/22 Brea Quinn APRN MOBILITY ARCHITECT [address] [place] [address]655 Nurse Practitioner Dermatology 09/21/22 Brea Quinn APRN MOBILITY ARCHITECT [address] [place] [address] Assigned Surgical Provider 10/09/22 [place] [address] [facility] [address] [place] [address] Assigned Musculoskeletal Provider 10/09/22 Livan Sharif MD [address] [facility] [address] [place] [address] Assigned Heart and Vascular Provider 11/06/22 11/12/22 Catherine Cm MD [address] [place] [address] Assigned Heart and Vascular Provider 11/13/22 05/27/23 Sydnie Martinez, RN Personal Advocate & Liaison (PAL) Family Medicine 03/28/23 07/31/23 Alfonso Renteria MD [address] [facility] [address] [place] [address] Assigned Neuroscience Provider 04/02/23 Cheng Todd PA-C [address] [place] [address] Assigned PCP 04/30/23 07/15/23 Radha Lomeli APRN MOBILITY ARCHITECT [address] [place] [address] Assigned Heart and Vascular Provider 05/28/23 Jelena David OD [address] [place] [address] MD Ophthalmology 06/15/23 Pao Joseph, RN Personal Advocate & Liaison (PAL) Nurse 08/01/23 11/07/23 Esha Grimm PA-C [address] [place] [address] Assigned PCP 07/16/23 Valery Veronica PA-C [address] [place] [address] 4918[address] Physician Cannery Worker Dermatology 09/19/23 Rey Tay MD [address] [place] [address] 768275 MD Gastroenterology 09/20/23 Rocky Zepeda DO [address] [place] [address] 418065 Physician Gastroenterology 09/20/23 Philip Dumont MD [address] [place] [address] Physician Ophthalmology 09/22/23 Meredith Carrera PA-C [address] [place] [address] Assigned Gastroenterology Provider 11/01/23 Neil Kent MD [address] [address] Dermatology 11/02/23 [place] [address] [address] [place] [address] Neurological Surgery 12/26/23 documented as of this encounter
--- OUTSIDE RECORDS SUMMARY | 2024-01-07 18:20 | XMS_ITS | Encounter Summary ---
Author Organization [facility] Address [address] [place] [address] Care Team Providers Care Conditioner Tumbler Name Role Phone Rakesh Cid PA-C Unavailable + Rakesh Cid PA-C Primary Care Provider Lita Oseguera Unavailable Unavailable Rakesh Cid PA-C Unavailable + Isaura Lamar RN Unavailable Unavailable Lita Oseguera Unavailable Unavailable Marija Edgar APRN CANAL EQUIPMENT MECHANIC Primary Care Provider Chanelle Gutierrez APRN CNM Unavailab le Lesley Moody CHW Unavailable [phone] Kyara De La Fuente RN Unavailable [phone] Marija Edgar APRN CANAL EQUIPMENT MECHANIC Unavailable Unavail able Mynor Broussard MD Unavailable [phone] Keisha Dotson MD Unavailable [phone] Mary Mejia Unavailable Unavailable Stacey Briones TALENT ACQUISITION CONSULTANT Unavailable [phone] Lesley Moody CHW Unavailable [phone] Mary Mejia Unavailable Unavailable Lita Oseguera Unavailable Unavailable Galo Burrell MD Unavailable Unavailable Cristina Wood Unavailable Lesley Moody [facility] Unavailable Meredith Bedoya Unavailable Unavailable Cristina Wood Unavailable Diana Desir [facility] Unavailable [phone] Rain Galaviz PA-C Unavailable Summer Lara MD Unavailable +[phone] Summer Lara MD Unavailable + [phone] Summer Lara MD Unavailable +[phone] Tavia Wyatt MD Unavailable Unavailable Johnny Murillo MD Unavailable +[phone] Erica Farrell APRN CANAL EQUIPMENT MECHANIC Unavailable + Teresita Bean [facility] Unavailable [phone] Tavia Wyatt MD Unavailable Unavailable Diana Desir [facility] Unavailable [phone] Rich Barrett MD Unavailable [phone] Neil Kent MD Unavailable Roney Story DPM Unavailable [phone] Erica Farrell STONEWORKER CANAL EQUIPMENT MECHANIC Unavailable + Diana Desir [facility] Unavailable [phone] Jelena David OD Unavailable Galo Burrell MD Unavailable Unavailable Livan Sharif MD Unavailable + Livan Sharif MD Unavailable + Catherine Cm MD Unavailable + Valery Veronica PA-C Unavailable [phone] Catherine Cm MD Unavailable + Johnny Murillo MD Unavailable [phone] Brea Quinn APRN CANAL EQUIPMENT MECHANIC Unavailable [phone] Brea Quinn STONEWORKER CANAL EQUIPMENT MECHANIC Unavailable [phone] Jose Francisco Johnson MD Unavailable Livan Sharif MD Unavailable Catherine Cm MD Unavailable + Sydnie Martinez RN Unavailable Unavailable Alfonso Renteria MD Unavailable Esha Grimm PA-C Primary Care Provider Cheng Todd PA-C Unavailable Armani Radha Stovall STONEWORKER CANAL EQUIPMENT MECHANIC Unavailable [phone] Frankie Jelena Garcia OD Unavailable [phone] Pao Joseph RN Unavailable Unavailable Esha Grimm PA-C Unavailable [phone] Valery Veronica PA-C Unavailable [phone] Rey Tay MD Unavailable Rocky Zepeda DO Unavailable Philip Dumont MD Unavailable [phone] Meredith Carrera PA-C Unavailable [phone] Neil Kent MD Unavailable Juan Pablo Emmanuel MD Unavailable Reason for Visit * Reason Onset Date Comments Appointment 02/13/2020 Anxiety Encounter Details Date Type Department Care Team (Late st Contact Info) Description 02/13/2020 [facility] Medical Advice [address] [address] Rakesh Cid PA-C [address] [place] [address] Appointment (Anxiety) Social History Tobacco [...] Forrester RN - 02/15/2020 2:28 PM CDT AndroJekt message sent to patient to schedule a [...] AM CDT Office Visit [facility] - [address], [address] [place] [address] Genny Hyman PA-C [facility] Epilepsy Care [address] [facility] [address] [place], [place] [phone] [place] [address] [place] [address] 02/06/2024 10:00 AM CDT Office Visit [facility] [address] [phone] Neil Kent MD [address] [place], [place] [address] 03/06/2024 3:00 PM CDT Office Visit [facility] [address] [place] [phone] Radha Lomeli APRN CANAL EQUIPMENT MECHANIC [address] [place] [address] 03/07/2024 9:00 AM CDT Hospital Encounter [facility] [address] [place] [phone] Rocky Zepeda DO 500 [place], [place] [address] 03/07/2024 9:00 AM CDT - 03/07/2024 9:30 AM CDT Surgery [address] [phone] Rocky Zepeda DO 500 [place], [place] [phone] Esophagoscopy, gastroscopy, duodenoscopy (EGD), combined Scheduled Procedures Name Priority Associated Diagnoses Date/Ti ms ESOPHAGOGASTRODUODENOSCOPY Eosinophilic esophagitis Esophageal dysphagia 03/07/2024 9:00 AM CDT documented as of this encounter Visit Diagnoses Not on filedocumented in this encounter Additional Health Concerns Infection Onset Date Last Indicated Resolved Time Rule Out COVID-19 07/30/2020 07/30/2020 07/30/2020 7:11 PM MANAGING SUPERVISOR Rule Out COVID-19 08/30/2020 08/30/2020 08/30/2020 5:05 PM MANAGING SUPERVISOR Rule Out COVID-19 09/24/2020 09/24/2020 09/24/2020 9:24 AM CDT Rule Out COVID-19 11/05/2020 11/05/2020 11/06/2020 1:09 PM CDT Rule Out COVID-19 05/11/2021 05/11/2021 05/13/2021 10:18 AM CDT Rule Out COVID-19 07/13/2021 07/13/2021 07/14/2021 3:04 PM MANAGING SUPERVISOR Rule Out COVID-19 07/18/2021 07/18/2021 07/20/2021 1:56 PM MANAGING SUPERVISOR COVID-19 07/18/2021 07/18/2021 08/08/2021 11:3 9 PM MANAGING SUPERVISOR Rule Out COVID-19 12/18/2021 12/18/2021 12/19/2021 11:34 AM CDT Rule Out COVID-19 02/24/2022 02/24/2022 02/25/2022 1:08 PM CDT Rule Out COVID-19 04/26/2022 04/26/2022 04/26/2022 6:47 AM CDT Rule Out COVID-19 05/17/2022 05/17/2022 05/17/2022 10:20 PM MANAGING SUPERVISOR Rule Out COVID-19 06/09/2022 06/09/2022 06/09/2022 9:35 AM MANAGING SUPERVISOR COVID-19 06/09/2022 06/09/2022 06/30/2022 11:4 1 PM MANAGING SUPERVISOR Rule Out COVID-19 11/10/2022 11/10/2022 11/11/2022 12:17 PM CDT Rule Out COVID-19 03/07/2023 03/07/2023 03/07/2023 1:20 PM CDT Rule Out COVID-19 12/26/2023 12/26/2023 12/26/2023 9:50 AM CDT Assessment Noted Time PHQ-9 Depression Total Score: 1 09/11/19 1:42 PM MANAGING SUPERVISOR documented as of this encounter Care Teams Conditioner Tumbler Relationship Specialty Start Date End Date Rakesh Cid PA-C [address] [place] [address] PCP - General Physician Planishing Hammer Operator - Medical 05/14/19 04/29/20 Marija Edgar APRN CANAL EQUIPMENT MECHANIC PCP - General Nurse Practitioner 04/30/20 04/14/23 Esha Grimm PA-C [address] [place] [phone] PCP - General Family Medicine 05/04/23 Rakesh Cid PA-C [address] [place] [address] Assigned PCP 05/06/19 03/01/20 Lita Oseguera Personal Advocate & Liaison (PAL) 02/28/20 03/27/23 Rakesh Cid PA-C [address] [place] [address] Assigned PCP 03/02/20 06/07/20 Isaura Lamar, RN Personal Advocate & Liaison (PAL) Family Practice 04/03/20 04/06/20 Lita Oseguera Personal Advocate & Liaison (PAL) 04/07/20 04/29/20 Chanelle Mccann APRN CNM [address] [address] Assigned OBGYN Provider 05/02/2005/09 Lesley Moody, W Community Health Worker 05/30/2005/12 Kyara De La Fuente, RN Specialty Squad Leader Neurology 06/04/20 03/05/21 Marija Edgar APRN CANAL EQUIPMENT MECHANIC Assigned PCP 06/08/20 04/29/23 Mynor Broussard MD [address] [facility] [address] [phone] Assigned Surgical Provider 06/01/20 11/28/21 Keisha oDtson MD 909 [place], [place] [phone] Assigned Neuroscience Provider 06/04/20 04/01/23 Mary Mejia Financial Resource Worker 08/07/20 08/21/20 Stacey Briones, [facility] Lead Squad Leader Primary Care - CC 08/11/2012/30 Lesley Moody, [facility] Community Health Worker 08/11/2010/01 Mary Mejia Financial Resource Worker 09/02/20 10/06/20 Lita Oseguera Personal Advocate & Liaison (PAL) Family Medicine 09/10/20 09/21/20 Galo Burrell MD Assigned Heart and Vascular Provider 10/05/20 04/02/22 Cristina Wood Financial Resource Worker 10/07/20 10/14/20 Lesley Moody, [facility] Community Health Worker 10/23/2012/30 Meredith Bedoya Financial Resource Worker 10/23/20 11/23/20 Cristina Wood Financial Resource Worker 02/09/21 02/09/21 Diana Desir, [facility] [address] [place] [address] Pharmacist Pharmacist 04/17/21 Rain Galaviz PA-C [address] [facility] [place] [address] Physician Planishing Hammer Operator Dermatology 04/28/21 Summer Lara MD [address] [place] [address] [place] [address] Assigned OBGYN Provider 05/10/2105/23 Summer Lara MD [address] [place] [address] [place] [address] Assigned OBGYN Provider 05/31/21 Summer Lara MD [address] [place] [address] [place] [address] Assigned OBGYN Provider 05/24/2105/30 Tavia Wyatt MD [address] [place] [address] [place] [address] Dermatology 07/14/21 Johnny Murillo MD [address] [place] [address] Assigned Musculoskeletal Provider 08/30/21 03/17/22 Erica Farrell APRN CANAL EQUIPMENT MECHANIC [address] [facility] [address] [place] [address] Nurse Practitioner Cardiovascular Disease 09/09/21 Teresita Bean, [facility] [address] [place] [address] Pharmacist Pharmacist 09/24/21 09/29/21 Tavia Wyatt MD Assigned Surgical Provider 11/29/21 05/07/22 Diana Desir, [facility] [address] [place] [address] Assigned MTM Pharmacist 01/02/22 Rich Barrett MD [address] [address] Physician Ophthalmology 01/21/22 Neil Kent MD [address] [place] [address] Dermatology 02/24/22 Roney Story DPM [address] [facility] 300 [place] [address] Assigned Musculoskeletal Provider 03/20/22 08/13/22 Erica Farrell APRN CANAL EQUIPMENT MECHANIC [address] [place] [address] Assigned Heart and Vascular Provider 04/03/22 04/16/22 Diana Desir, [facility] [address] [place] [address] Assigned MTM Pharmacist 04/07/22 Jelena David OD [address] [facility] [place] [address] Assigned Surgical Provider 05/08/22 10/08/22 Galo Burrell MD Assigned Heart and Vascular Provider 04/17/22 06/11/22 Livan Sharif MD [address] [place] [address] Cardiovascular Disease 05/14/22 Livan Sharif MD [address] [place] [address] Assigned Heart and Vascular Provider 06/12/22 07/23/22 Catherine Cm MD [address] [place] [address] Cardiovascular Disease 07/21/22 Valery Veronica, PA-C [address] [place] [address] Physician Planishing Hammer Operator Dermatology 07/21/22 Catherine Cm MD [address] [place] [phone] Assigned Heart and Vascular Provider 07/24/22 11/05/22 Johnny Murillo MD [facility] 864954 Assigned Musculoskeletal Provider 08/14/22 10/08/22 Brea Quinn APRN CANAL EQUIPMENT MECHANIC [address] [place] [address] 886945 Nurse Practitioner Dermatology 09/21/22 Brea Quinn APRN CANAL EQUIPMENT MECHANIC 64[address] [facility] [place] [address] Assigned Surgical Provider 10/09/22 [place] [address] [place] [address] Assigned Musculoskeletal Provider 10/09/22 Livan Sharif MD [address], [facility] [address] [place], [place] [address] Assigned Heart and Vascular Provider 11/06/22 11/12/22 Catherine Cm MD [address] [place] [address] Assigned Heart and Vascular Provider 11/13/22 05/27/23 Sydnie Martinez RN Personal Advocate & Liaison (PAL) Family Medicine 03/28/23 07/31/23 Alfonso Renteria MD [address] [facility] 200 [place] [address] Assigned Neuroscience Provider 04/02/23 Cheng Todd PA-C [address] [place] [address] Assigned PCP 04/30/23 07/15/23 Radha Lomeli APRN CANAL EQUIPMENT MECHANIC [address] [place] [address] Assigned Heart and Vascular Provider 05/28/23 Jelena David OD [address] [facility] [place] [address] MD Ophthalmology 06/15/23 Pao Joseph, RN Personal Advocate & Liaison (PAL) Nurse 08/01/23 11/07/23 Esha Grimm PA-C [address] [place] [phone] Assigned PCP 07/16/23 Valery Veronica PA-C [address] [place] [address] [id number] Physician Planishing Hammer Operator Dermatology 09/19/23 Rey Tay MD [address] [place] [address] MD Gastroenterology 09/20/23 Rocky Zepeda DO [address] [place] [address] 776865 Physician Gastroenterology 09/20/23 Philip Dumont MD [address] [place] [address] Physician Ophthalmology 09/22/23 Meredith Carrera PA-C [address] [place] [address] [phone] Assigned Gastroenterology Provider 11/01/23 Neil Kent MD [address] 906880 Dermatology 11/02/23 [place] [address] [place] [address] Neurological Surgery 12/26/23 documented as of this encounter
--- OUTSIDE RECORDS SUMMARY | 2024-01-07 18:20 | XMS_ITS | Encounter Summary ---
Author Organization [facility] Address [address] [place] [address] Care Team Providers Care Game Preserve Manager Name Role Phone Rakesh Cid PA-C Unavailable + Rakesh Cid PA-C Primary Care Provider Lita Oseguera Unavailable Unavailable Rakesh Cid PA-C Unavailable + Isaura Lamar RN Unavailable Unavailable Lita Oseguera Unavailable Unavailable Marija Edgar APRN SPEECH PATHOLOGY SUPERVISOR Primary Care Provider Chanelle Gutierrez APRN CNM Unavailab le Lesley Moody CHW Unavailable [phone] Kyara De La Fuente RN Unavailable [phone] Marija Edgar APRN SPEECH PATHOLOGY SUPERVISOR Unavailable Unavail able Mynor Broussard MD Unavailable [phone] Keisha Dotson MD Unavailable [phone] Mary Mejia Unavailable Unavailable Stacey Briones BOX LINING MACHINE FEEDER Unavailable [phone] Lesley Moody CHW Unavailable [phone] Mary Mejia Unavailable Unavailable Lita Oseguera Unavailable Unavailable Galo Burrell MD Unavailable Unavailable Cristina Wood Unavailable Lesley Moody [facility] Unavailable Meredith Bedoya Unavailable Unavailable Cristina Wood Unavailable Diana Desir [facility] Unavailable [phone] Rain Galaviz PA-C Unavailable [phone] Summer Lara MD Unavailable +[phone] Summer Lara MD Unavailable + [phone] Summer Lara MD Unavailable +[phone] Tavia Wyatt MD Unavailable Unavailable Johnny Murillo MD Unavailable +[phone] Erica Farrell APRN SPEECH PATHOLOGY SUPERVISOR Unavailable + Teresita Bean [facility] Unavailable [phone] Tavia Wyatt MD Unavailable Unavailable Diana Desir [facility] Unavailable [phone] Rich Barrett MD Unavailable [phone] Neil [place] MD Unavailable Roney Story DPM Unavailable [phone] Erica Farrell MATCHBOOK MAKER SPEECH PATHOLOGY SUPERVISOR Unavailable + Diana Desir [facility] Unavailable [phone] Jelena David OD Unavailable [phone] Galo Burrell MD Unavailable Unavailable Livan Sharif MD Unavailable + Livan Sharif MD Unavailable + Catherine Cm MD Unavailable + Valery Veronica PA-C Unavailable [phone] Catherine Cm MD Unavailable + Johnny Murillo MD Unavailable [phone] Brea Quinn APRN SPEECH PATHOLOGY SUPERVISOR Unavailable [phone] Brea Quinn MATCHBOOK MAKER SPEECH PATHOLOGY SUPERVISOR Unavailable Jose Francisco Johnson MD Unavailable Livan Sharif MD Unavailable Catherine Cm MD Unavailable + Sydnie Martinez RN Unavailable Unavailable Alfonso Renteria MD Unavailable [phone] Esha Grimm PA-C Primary Care Provider Cheng Todd PA-C Unavailable Armani Radha Sia MATCHBOOK MAKER SPEECH PATHOLOGY SUPERVISOR Unavailable FrankieJelena OD Unavailable [phone] Pao Joseph RN Unavailable Unavailable Esha Grimm PA-C Unavailable [phone] Valery Veronica PA-C Unavailable Rey Tay MD Unavailable Rocky Zepeda DO Unavailable Philip Dumont MD Unavailable Meredith Carrera PA-C Unavailable Neil [place] MD Unavailable Juan Pablo Emmanuel MD Unavailable Encounter Details Date Type Department Care Team (Late st Contact Info) Description 02/27/[address], [address] [place] [address] Rakesh Cid, PA-C [address] [place] [address] Social History Tobacco Use Types [...] message?: Yes at Home number on file [phone] (home) Violet Jeffrey Patient Ict Support And Test Engineers documented in this encounter Plan of Treatment Upcoming Encounters Date Type Department Care Team (Late st Contact Info) Description 01/09/2024 10:15 AM CDT Office Visit [facility] Neurology [facility] - [address], [address] [place] [address] Genny Hyman PA-C [facility] Epilepsy Care [address] [facility] [address] [place], [place] [address] [place] [address] [place], [place] [address] 02/06/2024 10:00 AM CDT Office Visit [facility] [address] [phone] Neil [place] MD [address] [place] [address] 03/06/2024 3:00 PM CDT Office Visit [facility] Heart [facility] [address] [facility] [address] [place] [phone] Radha Lomeli, MATCHBOOK MAKER SPEECH PATHOLOGY SUPERVISOR [address] [place] [address] 03/07/2024 9:00 AM CDT Hospital Encounter [address] [phone] Rocky Zepeda DO [address] [place] [address] 03/07/2024 9:00 AM CDT - 03/07/2024 9:30 AM CDT Surgery [address] [phone] Rocky Zepeda DO [address] [place] [address] Esophagoscopy, gastroscopy, duodenoscopy (EGD), combined Scheduled Procedures Name Priority Associated Diagnoses Date/Ti ct ESOPHAGOGASTRODUODENOSCOPY Eosinophilic esophagitis Esophageal dysphagia 03/07/2024 9:00 AM CDT documented as of this encounter Visit Diagnoses Not on filedocumented in this encounter Additional Health Concerns Infection Onset Date Last Indicated Resolved Time Rule Out COVID-19 07/30/2020 07/30/2020 07/30/2020 7:11 PM RECREATION SUPERINTENDENT Rule Out COVID-19 08/30/2020 08/30/2020 08/30/2020 5:05 PM RECREATION SUPERINTENDENT Rule Out COVID-19 09/24/2020 09/24/2020 09/24/2020 9:24 AM CDT Rule Out COVID-19 11/05/2020 11/05/2020 11/06/2020 1:09 PM CDT Rule Out COVID-19 05/11/2021 05/11/2021 05/13/2021 10:18 AM CDT Rule Out COVID-19 07/13/2021 07/13/2021 07/14/2021 3:04 PM RECREATION SUPERINTENDENT Rule Out COVID-19 07/18/2021 07/18/2021 07/20/2021 1:56 PM RECREATION SUPERINTENDENT COVID-19 07/18/2021 07/18/2021 08/08/2021 11:3 9 PM RECREATION SUPERINTENDENT Rule Out COVID-19 12/18/2021 12/18/2021 12/19/2021 11:34 AM CDT Rule Out COVID-19 02/24/2022 02/24/2022 02/25/2022 1:08 PM CDT Rule Out COVID-19 04/26/2022 04/26/2022 04/26/2022 6:47 AM CDT Rule Out COVID-19 05/17/2022 05/17/2022 05/17/2022 10:20 PM RECREATION SUPERINTENDENT Rule Out COVID-19 06/09/2022 06/09/2022 06/09/2022 9:35 AM RECREATION SUPERINTENDENT COVID-19 06/09/2022 06/09/2022 06/30/2022 11:4 1 PM RECREATION SUPERINTENDENT Rule Out COVID-19 11/10/2022 11/10/2022 11/11/2022 12:17 PM CDT Rule Out COVID-19 03/07/2023 03/07/2023 03/07/2023 1:20 PM CDT Rule Out COVID-19 12/26/2023 12/26/2023 12/26/2023 9:50 AM CDT Assessment Noted Time PHQ-9 Depression Total Score: 11 02/20/2 020 1:14 PM CDT documented as of this encounter Care Teams Game Preserve Manager Relationship Specialty Start Date End Date Rakesh Cid PA-C [address] [place] [address] PCP - General Physician Bead Wire Insulator - Medical 05/14/19 04/29/20 Marija Edgar APRN SPEECH PATHOLOGY SUPERVISOR PCP - General Nurse Practitioner 04/30/20 04/14/23 Esha Grimm PA-C [address] [place] [phone] PCP - General Family Medicine 05/04/23 Rakesh Cid PA-C [address] [place] [address] Assigned PCP 05/06/19 03/01/20 Lita Oseguera Personal Advocate & Liaison (PAL) 02/28/20 03/27/23 Rakesh Cid PA-C [address] [place] [address] Assigned PCP 03/02/20 06/07/20 Isaura Lamar, VJ Personal Advocate & Liaison (PAL) Family Practice 04/03/20 04/06/20 Lita Oseguera Personal Advocate & Liaison (PAL) 04/07/20 04/29/20 [place] [address] [address] Assigned OBGYN Provider 05/02/2005/09 Lesley Moody CHW Community Health Worker 05/30/2005/12 Kyara De La Fuente, RN Specialty Pacs Specialist Neurology 06/04/20 03/05/21 Marija Edgar APRN SPEECH PATHOLOGY SUPERVISOR Assigned PCP 06/08/20 04/29/23 Mynor Broussard MD [address] [id number] Assigned Surgical Provider 06/01/20 11/28/21 Keisha Dotson MD [address] [place], [place] [address] Assigned Neuroscience Provider 06/04/20 04/01/23 Mary Mejia Financial Resource Worker 08/07/20 08/21/20 Stacey Briones, [facility] Lead Pacs Specialist Primary Care - CC 08/11/2012/30 Lesley Moody, [facility] Community Health Worker 08/11/2010/01 Mary Mejia Financial Resource Worker 09/02/20 10/06/20 Lita Oseguera Personal Advocate & Liaison (PAL) Family Medicine 09/10/20 09/21/20 Galo Burrell MD Assigned Heart and Vascular Provider 10/05/20 04/02/22 Cristina Wood Financial Resource Worker 10/07/20 10/14/20 Lesley Moody, [facility] Community Health Worker 10/23/2012/30 Meredith Bedoya Financial Resource Worker 10/23/20 11/23/20 Cristina Wood Financial Resource Worker 02/09/21 02/09/21 Diana Desir, [facility] [address] [place], [place] [address] Pharmacist Pharmacist 04/17/21 Rain Galaviz PA-C [address] [place] [address] [address] [place] [address] Physician Bead Wire Insulator Dermatology 04/28/21 Summer Lara MD [address] [place] [address] Assigned OBGYN Provider 05/10/2105/23 Summer Lara MD [address] [place] [address] Assigned OBGYN Provider 05/31/21 Summer Lara MD [address] [place] [address] Assigned OBGYN Provider 05/24/2105/30 Tavia Wyatt MD [address] [place] [address] Dermatology 07/14/21 Johnny Murillo MD [address] [place] [address] Assigned Musculoskeletal Provider 08/30/21 03/17/22 Erica Farrell APRN SPEECH PATHOLOGY SUPERVISOR [address] [facility] [address] [place] [address] Nurse Practitioner Cardiovascular Disease 09/09/21 Teresita Bean, [facility] [address] [place] [address] Pharmacist Pharmacist 09/24/21 09/29/21 Tavia Wyatt MD Assigned Surgical Provider 11/29/21 05/07/22 Diana Desir, [facility] [address] [place] [address] Assigned MTM Pharmacist 01/02/22 Rich Barrett MD [address] [phone] Physician Ophthalmology 01/21/22 Neil Kent MD [address] [place], [place] [address] Dermatology 02/24/22 Roney Story DPM [address] [facility] [address] [place] [address] Assigned Musculoskeletal Provider 03/20/22 08/13/22 Erica Farrell APRN SPEECH PATHOLOGY SUPERVISOR [address] [place] [address] Assigned Heart and Vascular Provider 04/03/22 04/16/22 Diana Desir, [facility] [address] [place] [address] Assigned MTM Pharmacist 04/07/22 Jelena David OD [address] [facility] [place] [address] Assigned Surgical Provider 05/08/22 10/08/22 Galo Burrell MD Assigned Heart and Vascular Provider 04/17/22 06/11/22 Livan Sharif MD [address], [facility] [address] [place] [address] Cardiovascular Disease 05/14/22 Livan Sharif MD [address], [place] [address] [address] Assigned Heart and Vascular Provider 06/12/22 07/23/22 Catherine Cm MD [address] [place] [address] Cardiovascular Disease 07/21/22 Valery Veronica, PAUcheC [address] [place] [address] Physician Bead Wire Insulator Dermatology 07/21/22 Catherine Cm MD [address] [facility] [address] [place] [address] Assigned Heart and Vascular Provider 07/24/22 11/05/22 Johnny Murillo MD [address] [place] [address] 710944 Assigned Musculoskeletal Provider 08/14/22 10/08/22 Brea Quinn APRN SPEECH PATHOLOGY SUPERVISOR [address] [place] [address] 680915 Nurse Practitioner Dermatology 09/21/22 Brea Quinn APRN SPEECH PATHOLOGY SUPERVISOR [address] [place] [address] [place] 377382 Assigned Surgical Provider 10/09/22 [place] [address] [facility] [address] [place] [address] Assigned Musculoskeletal Provider 10/09/22 Livan Sharif MD [address], [facility] [address] [place] [address] Assigned Heart and Vascular Provider 11/06/22 11/12/22 Catherine Cm MD [address] [place] [address] Assigned Heart and Vascular Provider 11/13/22 05/27/23 Sydnie Martinez RN Personal Advocate & Liaison (PAL) Family Medicine 03/28/23 07/31/23 Alfonso Renteria MD [address] [facility] [address] [place] [address] Assigned Neuroscience Provider 04/02/23 Cheng Todd PA-C [address] [place] [address] Assigned PCP 04/30/23 07/15/23 Radha Lomeli APRN SPEECH PATHOLOGY SUPERVISOR [address] [place] [address] Assigned Heart and Vascular Provider 05/28/23 Jelena David OD [facility] [facility] [place] [address] Ophthalmology 06/15/23 Pao Joseph, VJ Personal Advocate & Liaison (PAL) Nurse 08/01/23 11/07/23 Esha Grimm PA-C [address] [place] [address] Assigned PCP 07/16/23 Valery Veronica PA-C [address] [place] [address] Physician Bead Wire Insulator Dermatology 09/19/23 Rey Tay MD [address] [place] [address] MD Gastroenterology 09/20/23 Rocky Zepeda DO [address] [place] [address] Physician Gastroenterology 09/20/23 Philip Dumont MD [address] [place] [address] Physician Ophthalmology 09/22/23 Meredith Carrera PA-C [address] [place] [address] Assigned Gastroenterology Provider 11/01/23 Neil [place] MD [address] [address] Dermatology 11/02/23 [place] [address] [place] [address] Neurological Surgery 12/26/23 documented as of this encounter
--- OUTSIDE RECORDS SUMMARY | 2024-01-07 18:20 | XMS_ITS ---
Author Organization [facility] Address [address] [place] [address] Care Team Providers Care Sheet Rock Finisher Name Role Phone ThangKendrickDiana T [facility] Unavailable Rain Galaviz-C Unavailable Tavia Wyatt MD Unavailable Unavailable Erica Farrell APRN CARD CUTTER Unavailable Rich Barrett MD Unavailable Neil Kent MD Unavailable Diana Desir [facility] Unavailable [phone] Livan Sharif MD Unavailable Catherine Cm MD Unavailable + Valery Veronica-C Unavailable [phone] Brea Quinn BUILD AND RELEASE MANAGER CARD CUTTER Unavailable [phone] Brea Quinn BUILD AND RELEASE MANAGER CARD CUTTER Unavailable Jose Francisco Johnson MD Unavailable Alfonso Renteria MD Unavailable + [phone] Esha Grimm PA-C Primary Care Provider Radha Lomeli BUILD AND RELEASE MANAGER CARD CUTTER Unavailable Jelena David OD Unavailable Esha Grimm PA-C Unavailable [phone] Valery Veronica PA-C Unavailable Rey Tay MD Unavailable Rocky Zepeda DO Unavailable Philip Dumont MD Unavailable [phone] Meredith Carrera PA-C Unavailable Neil Kent MD Unavailable Juan Pablo Emmanuel MD Unavailable [phone] Primary Care Care Coordination Status:Declined (Declined) Start date:12/27/2023 End date:12/27/2023 Decline reason:Not interested Continued Care and Services Coordination
[2024-01-07 18:41] LABS: Lactate* 0.7 mmol/L (0.5-1.9)
[2024-01-07 18:43] LABS: Basophils Absolute Auto 0.02 K/uL (0.00-0.30); Basophils Percent Auto 0.3 % (0.0-3.0); Eosinophils Absolute Auto 0.21 K/uL (0.00-0.50); Eosinophils Percent Auto 2.8 % (0.0-7.0); Hematocrit 35.6 % (33.0-51.0); Hemoglobin* 11.4 gm/dL (12.0-16.0); Immature Granulocytes Abs Auto 0.01 K/uL (0.00-0.30); Immature Granulocytes Pct Auto 0.1 %; Lymphocytes Absolute Auto 1.95 K/uL (0.90-2.90); Mean Corpuscular HGB Conc 32 gm/dL (32-36); Mean Corpuscular Hemoglobin 26 pg (26-34); Mean Corpuscular Volume 82 fL (80-100); Monocytes Percent Auto 6.3 % (0.0-11.0); Neutrophils Absolute Auto 4.85 K/uL (1.7-7.0); Neutrophils Percent Auto 64.5 % (42.0-72.0); Platelet Count* 236 K/uL (140-440); RDW Coefficient of Variation % 12.6 % (11.5-15.5); Red Blood Count 4.35 m/uL (4.00-5.20); White Blood Count* 7.51 K/uL (4.50-11.00)
[2024-01-07 18:46] LABS: Slide Review Reflex No
[2024-01-07 19:06] LABS: Chloride* 106 mmol/L (96-114); Potassium* 3.7 mmol/L (3.6-5.1); Sodium* 138 mmol/L (135-149)
[2024-01-07 19:08] LABS: Magnesium* 2.1 mg/dL (1.5-2.6)
[2024-01-07 19:09] LABS: Creatinine* 0.6 mg/dL (0.5-1.5); Est. Creatinine Clearance* 136.51; Estimated Glomerular Filt Rate 129 ml/min
[2024-01-07 19:10] LABS: Anion Gap 8 mEq/L (7-15); Blood Urea Nitrogen* 12 mg/dL (5-24); Calcium* 9.2 mg/dL (8.4-10.6); Carbon Dioxide* 24 mmol/L (20-32); Glucose* 116 mg/dL (60-115)
[2024-01-07 19:15] LABS: D Dimer Quantitative* 0.09 ug/ml (0.00-0.50)
[2024-01-07 19:24] LABS: NT Pro B Type NatriureticPept* < 20 pg/mL; Troponin I* < 0.01 ng/mL (0.01-0.04)
== END 2024-01-07 19:58 | disposition home or self-care (01) ==
PROVIDERS: Emergency Provider Family Medicine
DX: R07.9 Chest pain, unspecified (principal); D64.9 Anemia, unspecified
CPT/HCPCS: 36415; 71045; 80048; 83605; 83735; 83880; 84484; 85025; 85379; 93005; 99284; J7030

== ENCOUNTER 2024-02-12 04:50 | Emergency (ER) | payer MEDICAID, SELFPAY ==
[2024-02-12 04:56] VITALS: BP 120/73; PULSE 85; RESP 16; TEMP 36.8; O2SAT 99; BMI 29.9
--- NOTE | 2024-02-12 05:05 | CRLHL7_ITS ---
For Patients: As a result of the Century Cures Act, medical imaging exams and procedure reports are released immediately into your electronic medical record. You may view this report before your referring provider. If you have questions, please contact your health care provider. INDICATION: Chest pain and heaviness. TECHNIQUE: Chest 2 views. COMPARISON: None. FINDINGS: Cardiovascular and mediastinum: Heart size is normal. Unremarkable mediastinum. Lungs and pleural spaces: Lungs are clear. No sign of infiltrate or mass. No sign of pleural effusion. No pneumothorax. Bones and soft tissues: No significant findings. IMPRESSION: No acute or significant findings. Dictated by Uziel Wells MD @ 02/12/2024 5:36:55 AM (Electronically Signed)
[2024-02-12 05:11] VITALS: PULSE 81; O2SAT 100
[2024-02-12 05:12] VITALS: BP 120/62; PULSE 73; RESP 16; O2SAT 100
[2024-02-12 05:15] VITALS: PULSE 76; O2SAT 100
[2024-02-12 05:23] LABS: Basophils Absolute Auto 0.02 K/uL (0.00-0.30); Basophils Percent Auto 0.3 % (0.0-3.0); Eosinophils Absolute Auto 0.38 K/uL (0.00-0.50); Eosinophils Percent Auto 6.5 % (0.0-7.0); Hematocrit 38.4 % (33.0-51.0); Hemoglobin* 12.2 gm/dL (12.0-16.0); Immature Granulocytes Abs Auto 0.01 K/uL (0.00-0.30); Immature Granulocytes Pct Auto 0.2 %; Lymphocytes Absolute Auto 2.22 K/uL (0.90-2.90); Lymphocytes Percent Auto 38.2 % (20-44); Mean Corpuscular HGB Conc 32 gm/dL (32-36); Mean Corpuscular Hemoglobin 26 pg (26-34); Mean Corpuscular Volume 82 fL (80-100); Monocytes Percent Auto 7.6 % (0.0-11.0); Neutrophils Absolute Auto 2.74 K/uL (1.7-7.0); Neutrophils Percent Auto 47.2 % (42.0-72.0); Platelet Count* 231 K/uL (140-440); RDW Coefficient of Variation % 12.4 % (11.5-15.5); Red Blood Count 4.69 m/uL (4.00-5.20); White Blood Count* 5.81 K/uL (4.50-11.00)
[2024-02-12 05:30] VITALS: PULSE 77; O2SAT 99
[2024-02-12 05:31] LABS: Slide Review Reflex No
[2024-02-12 05:36] LABS: Appearance Urine Clear (Clear); Bilirubin Urine Negative (Negative); Blood Urine Negative (Negative); Color Urine Yellow (Yellow); Glucose Urine Negative (Negative); Ketones Urine Negative (Negative); Leukocyte Esterase Urine Negative (Negative); Nitrite Urine Negative (Negative); Protein Urine Negative (Negative); Specific Gravity Urine 1.015 (1.000-1.030); Urobilinogen Urine 0.2 (0.2-1.0)
[2024-02-12 05:39] LABS: Chloride* 104 mmol/L (96-114); Potassium* 3.8 mmol/L (3.6-5.1); Sodium* 140 mmol/L (135-149)
--- OUTSIDE RECORDS SUMMARY | 2024-02-12 05:40 | XMS_ITS | Clinical Summary ---
Author Organization [employer] [facility] Address [place], [place] [address] Care Team Providers Care Telesales Representative Name Role Phone Clinic, No Pcp Or Primary Care Provider Unavaila ble Allergies No known active allergies Medications Medication Sig Dispensed Refills Start Date End Date Status biotin-silicon [id number]-Z-[id number] 3,000 mcg -100 mg-50 mg TbER Take [...] Comments Blood Pressure 124/78 08/31/2018 11:46 AM MANAGER AUDIO Pulse 78 08/31/2018 11:46 AM MANAGER AUDIO Temperature 37.1 ??C (98.8 ??F) 11/01/2017 5:26 PM CD T Respiratory Rate 16 11/01/2017 5:26 PM CDT Oxygen Saturation 96% 11/01/2017 5:26 PM CDT Inhaled Oxygen Concentration - - Weight 89.3 kg (196 lb 14.4 oz) 019 11:46 AM MANAGER AUDIO Height 166.5 cm (5' 5.55) 08/31/2018 1 1:46 AM MANAGER AUDIO Body Mass Index 32.22 08/31/2018 11:46 AM MANAGER AUDIO Plan of Treatment Health Maintenance Due Date [...] age to complete this topic Care Teams Telesales Representative Relationship Specialty Start Date End Date Clinic, No Pcp Or . PCP - General 08/12/17
--- OUTSIDE RECORDS SUMMARY | 2024-02-12 05:40 | XMS_ITS | Clinical Summary ---
Author Organization [facility] Address [address] [place] [address] Phone Care Team Providers Care Ribbon Lapper Tender Name Role Phone Unavailable Primary Care [...]
[2024-02-12 05:41] LABS: Creatinine* 0.6 mg/dL (0.5-1.5); Est. Creatinine Clearance* 136.51; Estimated Glomerular Filt Rate 129 ml/min
--- OUTSIDE RECORDS SUMMARY | 2024-02-12 05:41 | XMS_ITS | Referral Summary ---
Author Organization [facility] Address [address] [place] [address] Care Team Providers Care Artificial Insemination Technician Name Role Phone Thang Diana [place] [facility] Unavailable Rain Galaviz PA-C Unavailable Tavia Wyatt MD Unavailable Unavailable Erica Farrell INGOT CAR OPERATOR FAST FOOD SERVER Unavailable Rich Barrett MD Unavailable Neil Kent MD Unavailable Diana Desir [facility] Unavailable [phone] Livan Sharif MD Unavailable Catherine Cm MD Unavailable + Valery Veronica PA-C Unavailable [phone] Brea Quinn INGOT CAR OPERATOR FAST FOOD SERVER Unavailable Brea Quinn INGOT CAR OPERATOR FAST FOOD SERVER Unavailable Jose Francisco Johnson MD Unavailable Alfonso Renteria MD Unavailable + [phone] Esha Grimm PA-C Primary Care Provider Radha Lomeli INGOT CAR OPERATOR FAST FOOD SERVER Unavailable [phone] Jelena David OD Unavailable [phone] Esha Grimm PA-C Unavailable [phone] Valery Veronica PA-C Unavailable Rey Tay MD Unavailable Rocky Zepeda Unavailable Philip Dumont MD Unavailable Meredith Carrera PA-C Unavailable Neil Kent MD Unavailable Juan Pablo Emmanuel MD Unavailable Encounters Date Type Department Care Team Description 02/07/2024 Travel 02/07/2024 10:00 AM CDT Office Visit [address] [address] Lauren Claudio PA-C Yeast infection of the vagina (Primary Dx); Bacterial vaginosis; Vaginal discharge; Screening examination for venereal disease; Chest tightness 02/06/[address] [address] Esha Grimm PA-C Symptoms (VAGINAL SYMPTOMS THAT PATIENT WOULD LIKE TO GET LAB ORDERS FOR ) 02/01/2024 MyC Medical Advice [facility] Neurology Clinics [address], [address] [place] [phone] Macy Pinedo RN 01/26/2024 Travel 01/26/2024 12:50 PM CDT Therapy Visit [facility] Rehabilitation Services [address] [address] Ebony Cid APRN CNP Clemensen, Chad, PT Chiari malformation type I (H); Neck pain 01/23/2024 Travel 01/23/2024 Telephone [facility] Spine and Neurosurgery [address] [place] [address] [place] [phone] Ebony Cid APRN FAST FOOD SERVER 01/23/2024 10:00 AM CDT Office Visit [facility] Neurology [facility] - [address], [address] [place] [address] Juan Pablo Emmanuel MD Neck pain (Primary Dx); Paresthesia of arm; Chiari I malformation (H) 01/22/2024 Travel 01/16/2024 Telephone [facility] [address] [place] [phone] Esha Grimm PA-C 01/11/2024 Travel 01/11/2024 9:53 AM CDT - 01/11/2024 12:38 PM CDT [facility] [address] [place] [address] Jeffrey Whalen MD Dyspnea, unspecified type Discharge Disposition: Left Without Being Seen 01/09/2024 Telephone [facility] Neurology [facility] - [address], [facility] [address] [place] [address] Juan Pablo Emmanuel MD Appointment 01/09/2024 Telephone [facility] Neurosurgery [address] [facility] [address] [place] [address] Ebony Cid APRN FAST FOOD SERVER Results (Cervical and brain MRIs) 01/09/2024 Travel 01/06/2024 Telephone [facility] Neurology [facility] - [address] [place] [address] Juan Pablo Emmanuel MD Appointment 01/06/2024 10:53 AM CDT - 01/06/2024 11:59 PM CDT Hospital Encounter [facility] [address] [place] [address] Ebony Cid APRN FAST FOOD SERVER Chiari malformation type I (H); Numbness and tingling of upper extremity; Abnormal finding on MRI of brain Discharge Disposition: Home or Self Care 01/05/2024 Travel 01/05/2024 1:40 PM CDT Office Visit [facility] Neurosurgery [address] [facility] [address] [place] [phone] Ebony Cid APRN CNP Abnormal finding on MRI of brain (Primary Dx); Chiari malformation type I (H); Numbness and tingling of upper extremity; Neck pain 01/02/2024 PRE VISIT [facility] Neurosurgery Clinic [address] [phone] Juan Pablo Emmanuel MD Pre Visit Planning - 2 Attempts (Pre charting) 12/26/2023 Travel 12/26/2023 9:32 AM CDT - 12/26/2023 10:06 AM CDT Emergency [facility] [address] [place] [phone] Chidi Kim MD Chest tightness Discharge Disposition: Home or Self Care 12/26/2023 Telephone [facility] [address] [place] [phone] Esha Grimm PA-C Same Day Appointment (sore throat, body aches, headaches couple days) 12/23/2023 Travel 12/21/2023 1:20 PM CDT Ancillary Procedure [address] [phone] Jaret Cortez APRN CNP Chest tightness; SOB (shortness of breath) 12/21/2023 Telephone [facility] Heart [facility] [address] [facility] [address] [place] [phone] Livan Sharif MD Call Back (Schedule appt tomorrow ) 12/21/2023 Travel 12/21/2023 12:40 PM CDT Office Visit [facility] [address] [place] [phone] Jaret Cortez APRN FAST FOOD SERVER Vaginal odor (Primary Dx); Chest tightness; SOB (shortness of breath) 12/02/2023 Telephone M [address] [place] [phone] Radha Lomeli, INGOT CAR OPERATOR FAST FOOD SERVER Appointment (Clarification) 11/29/2023 MyC Medical Advice [facility] [address] [place] [address] Esha Grimm PA-C 11/29/2023 Telephone [facility] [address], [address] [place] [address] Genny Hyman PA-C 11/24/2023 Travel 11/24/2023 8:20 AM CDT - 11/24/2023 11:59 PM CDT Hospital Encounter [facility] [address] [address] [place] [phone] Lauren Claudio PA-C Epigastric pain Discharge Disposition: Home or Self Care 11/22/2023 Refill [facility] [address] [place] [phone] Radha Lomeli, INGOT CAR OPERATOR FAST FOOD SERVER Refill Request (metoprolol) 11/21/2023 MyC Medical Advice [facility] Gastroenterology [facility] [address] [place] [address] Sofia Alcantar 11/21/2023 Alejandro Medical Advice [facility] [address] [place] [phone] Sofia Alcantar 11/18/2023 Telephone [facility] [address] [facility], [address] [place] [address] Alfonso Renteria MD 11/17/2023 Refill M [address] [address] Brea Quinn APRN FAST FOOD SERVER Refill Request (Ketoconazole 2% shampoo) 11/16/2023 MyC Medical Advice [facility] [address] [place] [phone] Asiya Reddy RN 11/16/2023 Telephone [facility] [address] [place] [phone] Esha Grimm PA-C Referral 11/15/2023 MyC Medical Advice [facility] [place] [address] [place] [address] Vivian Grant 11/14/2023 Travel 11/14/2023 11:00 AM CDT Office Visit [facility] [address] [place] [address] Yolande Mora MD Urinary problem (Primary Dx); Screen for STD (sexually transmitted disease); Yeast infection of the vagina from Last 3 Months Allergies Active Allergy Reactions Criticality Noted Date Comments Vancomycin 04/26/2022 Medications Medication Sig Dispensed Refills Start Date End Date Status triamcinolone (KENALOG) 0.1 % external ointmentIndicatio ns:Psoriasis Apply topically 2 times daily To psoriasis on body or arms/legs until healed then stop 80 g 2 10/01/2022 Active tacrolimus (PROTOPIC) 0.1 % external ointmentIndicatio ns:Psoriasis Apply thin layer to psoriasis on thinner skin of face/genitals up to twice daily as needed. 60 g 11 10/01/2022 Active Lidocaine (LIDOCARE) 4 % PatchIndications: Acute left-sided low back pain with left-sided sciatica,Sacroili ac joint pain,Neck pain Place 1 patch onto the skin every 24 hours To prevent lidocaine toxicity, patient should be patch free for 12 hrs daily. 30 patch 1 10/11/2022 Active levonorgestrel (MIRENA) 52 MG (20 mcg/day) IUD by Intrauterine route once Active clindamycin (CLEOCIN T) 1 % external lotionIndications :Acne, unspecified acne type Apply topically 2 times daily 60 mL 1 09/01/2023 Active tretinoin (RETIN-A) 0.05 % external creamIndications: Acne, unspecified acne type Apply topically at bedtime 45 g 09/01/2023 Active omeprazole (PRILOSEC) [address] capsuleIndication s:Epigastric pain TAKE 1 CAPSULE BY MOUTH DAILY. 90 capsule 3 09/16/2023 Active PARoxetine (PAXIL) 40 MG tabletIndications :Anxiety Take 1 tablet (40 mg) by mouth every morning 90 tablet 1 09/21/2023 Active Multiple Vitamin (MULTIVITAMIN ADULT PO) Active Digestive Enzymes (DIGESTIVE ENZYME PO) Active Probiotic Product (PROBIOTIC BLEND PO) Active LORazepam (ATIVAN) 0.5 MG tabletIndications :Anxiety Take 1 tablet (0.5 mg) by mouth daily as needed for anxiety 30 tablet 10/27/2023 Active ketoconazole (NIZORAL) 2 % external shampooIndication s:Psoriasis Use every 1-2 days when flared. Leave in few minutes before rinsing. Use twice weekly to prevent flares. 120 mL 11 11/17/2023 Active metoprolol succinate ER (TOPROL XL) 25 MG 24 hr tabletIndications :Palpitations Take 0.5 tablets (12.5 mg) by mouth daily 45 tablet 1 11/22/2023 Active metroNIDAZOLE (METROGEL) 0.75 % vaginal gelIndications:Ba cterial vaginosis Place 1 applicator (5 g) vaginally daily for 5 days 25 g 02/07/2024 02/12/2024 Active fluconazole (DIFLUCAN) 150 MG tabletIndications :Yeast infection of the vagina Take 1 tablet (150 mg) by mouth once for 1 dose 1 tablet 02/07/2024 02/07/2024 Active Problems Patient Care Coordination No te [...] available in ED consider consultation with ED Advertising Operations Manager. Relevant Medical History (at time Care Plan [...] to initiation of Care Plan: 11 Total [facility] Hospital Admissions in 12 months prior to initiation of Care Plan: 0 (she has technically had 2 admissions due to related issues with OBGYN) Expected home rescue plan: Metoprolol 12.5mg PRN PCP: Marija Edgar APRN CNP - Family Medicine - [facility] Specialists: Dr. Galo Burrell - Cardiology - [facility] Cesar Dotson - Neurology - [facility] Epilepsy Care Care Coordination: Has worked with Community Health Worker in past - ARACELIS Parker, Clinical Care Coordination - 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 JANENE (generalized anxiety disorder) 09/29/2020 Right ureteral stone 05/27/2020 Overview: Added automatically from request for surgery [id number] Left ureteral stone 05/27/2020 Overview: Added automatically from request for surgery [id number] Head ache 02/18/2020 Seizure 05/02/2019 Depressed 05/02/2019 Anxiety 05/02/2019 Tobacco abuse counseling 05/02/2019 Psoriasis 05/02/2019 Resolved Problems Problem Noted Date Diagnosed Date Resolved Date Neck pain 08/25/2022 08/17/2023 Lower back pain 08/25/2022 08/17/2023 Term 01/13/2021 10/11/2022 Encounter for triage in patient 12/09/2020 04/18/2023 Asthma 06/04/2020 02/07/2024 Immunizations Name Administration Dates Next Due DTAP [...] Valent (PF) 04/24/2013 Influenza, seasonal, injectable, PF /10/2012,05/25/2011,05/13/2010,05/26,07/22/2003 MMR 01/15/2021,11/23/2004,08/07/2001 Meningococcal ACWY (Menactra??) 08/10/2011 Meningococcal [...] PHQ-2 Answer Date Recorded PHQ-2 Score 1 02/07/2024 [facility] [...] exercise at this level? 30 min 03/10/2023 Dupree Depression Scale Answer Date Recorded Dupree Depression Score 5 01/14/2021 Last EPDS Self [...] motionally safe where you currently live? Yes 02/07/2024 Within the past 12 months, h ave you been hit, slapped, kicked or otherwise physically hurt by someone? No 02/07/2024 Within the past 12 months, h ave you been humiliated or emotionally abused in other ways by your partner or ex-partner? No 02/07/2024 Education Answer Date Recorded What is the [...] Sign Reading Time Taken Comments Blood Pressure 108/71 02/07/2024 9:45 AM CDT Pulse 78 02/07/2024 9:45 AM CDT Temperature 36.9 ??C (98.4 ??F) 02/07/2024 9:45 AM CD T Respiratory Rate 16 02/07/2024 9:45 AM CDT Oxygen Saturation 98% 02/07/2024 9:45 AM CDT Inhaled Oxygen Concentration - - Weight 85.6 kg (188 lb 12.8 oz) 02/07/2024 9:45 AM CDT Height 170.7 cm (5' 7.2) 02/07/2024 9:45 AM CDT Body Mass Index 29.39 02/07/2024 9:45 AM CDT Plan of Treatment Upcoming Encounters Date Type Department Care Team (Latest Contact Info) Description 02/14/2024 12:50 PM CDT Therapy Visit [facility] [address] [place] [phone] Rustam Medina, PT [facility] [id number] [place] [address] 03/06/2024 3:00 PM CDT Office Visit [facility] [address] [place] [phone] Armani Radha Sia, INGOT CAR OPERATOR FAST FOOD SERVER [address] [place] [id number] 03/07/2024 9:00 AM CDT Hospital Encounter [facility] [address] [place] [address] [address] [place] [phone] Rocky Zepeda DO [address] [place], [place] [address] 03/07/2024 9:00 AM CDT - 03/07/2024 9:30 AM CDT Surgery [address] [place] [phone] Rocky Zepeda DO [address] [place], [place] [phone] Esophagoscopy, gastroscopy, duodenoscopy (EGD), combined 06/21/2024 2:00 PM CHUCKER Office Visit [facility] Neurology [facility] [address] [place] [address], [address] [place] [phone] [place] [address] [place] [address] Johnny Penn MD [address] [place] [id number] Scheduled Procedures Name Priority Associated Diagnoses Date/Ti me ESOPHAGOGASTRODUODENOSCOPY Eosinophilic esophagitis Esophageal dysphagia 03/07/2024 9:00 AM CDT Procedures Procedure Name Priority Date/Time Associated Diagnosis Comments WET PREPARATION Routine 02/07/2024 10:08 AM CDT Vaginal discharge Screening examination for venereal disease CHLAMYDIA TRACHOMATIS/NEISSERIA GONORRHOEAE BY PCR Routine 02/07/2024 10:08 AM CDT Vaginal discharge Screening examination for venereal disease D DIMER QUANTITATIVE Routine 02/07/2024 10:08 AM CDT Chest tightness BASIC METABOLIC PANEL Routine 02/07/2024 10:08 AM CDT Chest tightness TREPONEMA ABS W REFLEX TO RPR AND TITER Routine 02/07/2024 10:08 AM CDT Screening examination for venereal disease HIV ANTIGEN ANTIBODY COMBO Routine 02/07/2024 10:08 AM CDT Screening examination for venereal disease HCG QUALITATIVE STAT 01/11/2024 11:10 AM CDT CBC WITH PLATELETS & DIFFERENTIAL STAT 01/11/2024 10:30 AM CDT CBC WITH PLATELETS AND DIFFERENTIAL STAT 01/11/2024 10:30 AM CDT TROPONIN T, HIGH SENSITIVITY STAT 01/11/2024 10:30 AM CDT BASIC METABOLIC PANEL STAT 01/11/2024 10:30 AM CDT D DIMER QUANTITATIVE STAT 01/11/2024 10:30 AM CDT EKG 12-LEAD, TRACING ONLY STAT 01/11/2024 9:55 AM CDT MR BRAIN W/O & W CONTRAST STAT [...] Routine 11/14/2023 9:51 AM CDT Urinary problem GYNECOLOGIC CYTOLOGY Routine 09/22/2021 3:14 PM CDT Encounter for screening for cervical cancer from Last 3 Months or Most Recently Relevant to Health Maintenance Results * HIV Antigen Antibody Combo (02/07/2024 10:08 AM CDT) Only the most recent of3 resultswithin the time period is included. HIV Antigen Antibody Combo Nonreactive Nonreactive 02/07/2024 9:27 PM CDT LABORATORY Comment:Negative HIV-1 p24 a ntigen and HIV-1/2 antibody screening test results usually indicate the absence of HIV-1 and HIV-2 infection. However, such negative results do not rule-out acute HIV infection. If acute HIV-1 or HIV-2 infection is suspected, detection of HIV-1 or HIV-2 RNA is recommended. Blood BLOOD SPECIMEN / Unknown Venipuncture / Unknown 02/07/2024 10:08 AM CDT 02/07/2024 10:13 AM CDT Lauren Claudio PA-C LAB - BLOOD ORDERA BLES Performing Organization Address City/[facility]/ZIP Co de Phone Number LABORATORY [facility] Core Lab [address] [facility], [address] * Treponema Abs w Reflex to RPR and Titer (02/07/2024 10:08 AM CDT) Only the most recent of3 resultswithin the time period is included. Pathologist [facility] Treponema Antibody Total Nonreactive Nonreactive 02/07/2024 8:21 PM CDT SPECIALTY CORE/PROT/EN DO Blood BLOOD SPECIMEN / Unknown Venipuncture / Unknown 02/07/2024 10:08 AM CDT 02/07/2024 10:13 AM CDT Lauren Claudio PA-C LAB - BLOOD ORDERA BLES SPECIALTY CORE/PROT/ENDO Specialty Core/Prot/Endo [address] [facility], [address] * Chlamydia trachomatis/Neisseria gonorrhoeae by PCR - Clinic Collect (02/07/2024 10:08 AM CDT) Only the most recent of3 resultswithin the time period is included. Chlamydia Trachomatis Negative Negative 02/07/2024 6:31 PM CDT [facility] Comment: Negative for C. trachomatis rRNA by sewage plant operator mediated amplification. A negative result by sewage plant operator mediated amplification does not preclude the presence of infection because results are dependent on proper and adequate collection, absence of inhibitors and sufficient rRNA to be detected. Neisseria gonorrhoeae Negative Negative 02/07/2024 6:31 PM CDT [facility] Comment:Negative for N. gono rrhoeae rRNA by sewage plant operator mediated amplification. A negative result by sewage plant operator mediated amplification does not preclude the presence of C. trachomatis infection because results are dependent on proper and adequate collection, absence of inhibitors and sufficient rRNA to be detected. Swab VAGINAL STRUCTURE / Unknown Non-blood Collection / Unknown 02/07/2024 10:08 AM CDT 02/07/2024 10:13 AM CDT Lauren Claudio PA-C LAB - MICRO GENERA L ORDERABLES [facility] Inf. Diseases Diag. Lab [address] [facility], [address] [place] [phone] * (ABNORMAL) Wet prep - lab collect (02/07/2024 10:08 AM CDT) Only the most recent of3 resultswithin the time period is included. Pathologist [facility] Trichomonas Absent Absent REINA 02/07/2024 10:22 AM CDT CR LABORATORY Yeast Present(A) Absent REINA 02/07/2024 10:22 AM CDT CR LABORATORY Clue Cells Present(A) Absent REINA 02/07/2024 10:22 AM CDT CR LABORATORY WBCs/high power field 1+(A) None REINA 02/07/2024 10:22 AM CDT CR LABORATORY Swab VAGINAL STRUCTURE / Unknown Non-blood Collection / Unknown 02/07/2024 10:08 AM CDT 02/07/2024 10:13 AM CDT Lauren Claudio PA-C LAB - MICRO GENERA L ORDERABLES CR LABORATORY [facility] Lab [address] [facility] Lab (no room number, 1st floor of clinic) [place] [address], [facility] [phone] * D dimer, quantitative (02/07/2024 10:08 AM CDT) Only the most recent of3 resultswithin the time period is included. D-Dimer Quantitative <0.27 0.00 - 0.50 ug/mL FEU 02/07/2024 12:32 PM CDT OX LABORATORY Blood BLOOD SPECIMEN / Unknown Venipuncture / Unknown 02/07/2024 10:08 AM CDT 02/07/2024 10:13 AM CDT Narrative OX LABORATORY - 02/07/2024 12:32 PM CDT This D-dimer assay is intended for use in conjunction with a clinical pretest probability assessment model to exclude pulmonary embolism (PE) and deep venous thrombosis (DVT) in outpatients suspected of PE or DVT. The cut-off value is 0.50 ug/mL FEU. Lauren Claudio PA-C LAB - BLOOD ORDERA BLES OX LABORATORY [facility] Lab [address] Lab (no room number, 1st floor of clinic) [place] [address], [place] [phone] * Basic metabolic panel (Ca, Cl, CO2, Creat, Gluc, K, Na, BUN) (02/07/2024 10:08 AM CDT) Only the most recent of2 resultswithin the time period is included. Sodium 138 135 - 145 mmol/L 02/07/2024 4:30 PM CDT [facility] Potassium 4.3 3.4 - 5.3 mmol/L 02/07/2024 4:30 PM CDT [facility] Chloride 104 98 - 107 mmol/L 02/07/2024 4:30 PM CDT [facility] Carbon Dioxide (CO2) 24 22 - 29 mmol/L 02/07/2024 4:30 PM CDT [facility] Anion Gap 10 7 - 15 mmol/L 02/07/2024 4:30 PM CDT [facility] Urea Nitrogen 17.9 6.0 - 20.0 mg/dL 02/07/2024 4:30 PM CDT [facility] Creatinine 0.82 0.51 - 0.95 mg/dL 02/07/2024 4:30 PM CDT [facility] GFR Estimate >90 >60 mL/min/1.7 3m2 02/07/2024 4:30 PM CDT [facility] Comment:eGFR calculated us2020 CKD-EPI equation. Calcium 9.3 8.8 - 10.4 mg/dL 02/07/2024 4:30 PM CDT [facility] Comment:Reference intervals for this test were updated on 01/24/2024 to reflect our healthy population more accurately. There may be differences in the flagging of prior results with similar values performed with this method. Those prior results can be interpreted in the context of the updated reference intervals. Glucose 86 70 - 99 mg/dL 02/07/2024 4:30 PM CDT [facility] Blood BLOOD SPECIMEN / Unknown Venipuncture / Unknown 02/07/2024 10:08 AM CDT 02/07/2024 10:13 AM CDT Lauren Claudio PA-C LAB - BLOOD ORDERA BLES [facility] [place] [facility] [address] [facility], [address] [phone] * HCG QUALitative (blood) (01/11/2024 11:10 AM CDT) hCG Serum Qualitative Negative Negative REINA 01/11/2024 11:57 AM CDT [facility] LABORATORY Comment:This test is for scr eening purposes. Results should be interpreted along with the clinical picture. Confirmation testing is available if warranted by ordering [id number], HCG Quantitative . Blood STRUCTURE OF RIGHT HAND / Unknown Venipuncture / Unknown 01/11/2024 11:10 AM CDT 01/11/2024 11:15 AM CDT Jeffrey Whalen MD LAB - BLOOD DONYA HERRERA [facility] Organization Address City/State/ZIP Co de Phone Number RH LABORATORY [facility] Acute Care Lab [address] Lab (1st floor, no room number) [place] [address], [facility] * (ABNORMAL) CBC with platelets and differential (01/11/2024 10:30 AM CDT) Only the most recent of2 resultswithin the time period is included. WBC Count 4.6 4.0 - 11.0 10e3/uL 01/11/2024 10:43 AM CDT [facility] LABORATORY RBC Count 4.50 3.80 - 5.20 10e6/uL 01/11/2024 10:43 AM CDT [facility] LABORATORY Hemoglobin 11.8 11.7 - 15.7 g/dL 01/11/2024 10:43 AM CDT [facility] LABORATORY Hematocrit 37.6 35.0 - 47.0 % 01/11/2024 10:43 AM CDT [facility] LABORATORY MCV 84 78 - 100 fL 01/11/2024 10:43 AM CDT [facility] LABORATORY MCH 26.2(L) 26.5 - 33.0 pg 01/11/2024 10:43 AM CDT [facility] LABORATORY MCHC 31.4(L) 31.5 - 36.5 g/dL 01/11/2024 10:43 AM CDT [facility] LABORAT[facility] RDW 12.6 10.0 - 15.0 % 01/11/2024 10:43 AM CDT [facility] Platelet Count 234 150 - 450 10e3/uL 01/11/2024 10:43 AM CDT [facility] LAB[facility] % Neutrophils 52 % 01/11/2024 10:43 AM CDT [facility] % Lymphocytes 37 % 01/11/2024 10:43 AM CDT [facility] % Monocytes 5 % 01/11/2024 10:43 AM CDT [facility] % Eosinophils 5 % 01/11/2024 10:43 AM CDT [facility] % Basophils 0 % 01/11/2024 10:43 AM CDT [facility] % Immature Granulocytes 0 % 01/11/2024 10:43 AM CDT [facility] LAB[facility] NRBCs per 100 WBC 0 <1 /100 024 10:43 AM CDT [facility] LAB[facility] Absolute Neutrophils 2.4 1.6 - 8.3 10e3/uL 01/11/2024 10:43 AM CDT [facility] LABORAT[facility] Absolute Lymphocytes 1.7 0.8 - 5.3 10e3/uL 01/11/2024 10:43 AM CDT [facility] LABORAT[facility] Absolute Monocytes 0.3 0.0 - 1.3 10e3/uL 01/11/2024 10:43 AM CDT [facility] LABORATORY Absolute Eosinophils 0.3 0.0 - 0.7 10e3/uL 01/11/2024 10:43 AM CDT [facility] LABORAT[facility] Absolute Basophils 0.0 0.0 - 0.2 10e3/uL 01/11/2024 10:43 AM CDT [facility] LABORATORY Absolute Immature Granulocytes 0.0 <=0.4 10e3/uL 01/11/2024 10:43 AM CDT RH LABORATORY Absolute NRBCs 0.0 10e3/uL 01/11/2024 10:43 AM CDT [facility] Blood STRUCTURE OF RIGHT UPPER LIMB / Unknown Venipuncture / Unknown 01/11/2024 10:30 AM CDT 01/11/2024 10:39 AM CDT Jeffrey Whalen MD LAB - BLOOD DONYA HERRERA [facility] Organization Address City/State/ZIP Co de Phone Number LABORATORY [facility] [address] Lab (1st floor, no room number) [place] [address] * Troponin T, High Sensitivity (01/11/2024 10:30 AM CDT) Troponin T, High Sensitivity <6 <=14 ng/L 01/11/2024 11:07 AM CDT [facility] Comment: Either a High Sensitivity [...] UPPER LIMB / Unknown Venipuncture / Unknown 01/11/2024 10:30 AM CDT 01/11/2024 10:39 AM CDT Jeffrey Whalen MD LAB - BLOOD ORDSia HERRERA [facility] Lab [address] Lab (1st floor, no room number) [place] [address] * EKG 12 lead (01/11/2024 9:55 AM CDT) Only the most recent of2 resultswithin the time period is included. Systolic Blood Pressure mmHg RADIOLOGY RESULTS Diastolic Blood Pressure mmHg RADIOLOGY RESULTS Ventricular Rate 60 BPM RAD IOLOGY RESULTS Atrial Rate 60 BPM RADIOLOG Y RESULTS MS Interval 146 ms RADIOLOG Y RESULTS QRS Duration 84 ms RADIOLO GY RESULTS QT 382 ms RADIOLOGY RESULTS QTc 382 ms RADIOLOGY RESULTS P [place] 61 degrees RADIOLOGY RESULTS R AXIS 70 degrees RADIOLOGY RESULTS T [place] 67 degrees RADIOLOGY RESULTS Interpretation ECG Sinus rhythm Normal ECG When compared with ECG of 26-DEC-2023 09:56, No significant change was found Unconfirmed report - interpretation of this ECG is computer generated - see medical record for final interpretation Confirmed by - EMERGENCY ROOM, PHYSICIAN ([id number]), art editor Saleem Gomez ([id number]) on 01/11/2024 12:31:03 PM RADIOLOGY RESULTS 01/11/2024 9:55 AM CDT 01/11/2024 12:31 PM CDT Jeffrey Whalen MD ECG ORDERABLES RADIOLOGY RESULTS * MR Cervical Spine w/o & w [...] MR BRAIN W/O and W CONTRAST LOCATION: [facility] DATE: 01/06/2024 INDICATION: numbness tingling both [...] MR BRAIN W/O and W CONTRAST LOCATION: [facility] DATE: 01/06/2024 INDICATION: numbness tingling both arms and chest, torso. Recheck [id number] and hx Chiari and right parietal abnormality, [...] at the right lateral aspect of the [id number] body. Ebony Cid APRN FAST FOOD SERVER IMG MRI ORDERABLES * MR Brain w/o [...] MR BRAIN W/O and W CONTRAST LOCATION: [facility] DATE: 01/06/2024 INDICATION: numbness tingling both [...] MR BRAIN W/O and W CONTRAST LOCATION: [facility] DATE: 01/06/2024 INDICATION: numbness tingling both arms and chest, torso. Recheck [id number] and hx Chiari and right parietal abnormality, [...] at the right lateral aspect of the [id number] body. Ebony Cid APRN FAST FOOD SERVER IMG MRI ORDERABLES * Symptomatic Influenza A/B, RSV, & SARS-CoV2 [...] the Xpert Xpress CoV2/Flu/RSV Assay on the [employer] Instrument. This test should be ordered for [...] management. This test was validated by the [facility]. These laboratories are certified under the Clinical Laboratory Improvement Amendments of 1988 (CLIA-88) as qualified to perform high complexity laboratory testing. Chidi Kim MD LAB - MICRO GENER AL ORDERABLES LABORATORY [facility] [address] Lab (1st floor, no room number) [place] [address] * Group A Streptococcus PCR Throat Swab (12/26/2023 9:02 AM CDT) Pathologist [facility] A strep by PCR Not Detected Not Detected 12/26/2023 9:37 AM CDT LABORATORY Swab STRUCTURE OF ANTERIOR PORTION OF NECK / Unknown Non-blood Collection / Unknown 12/26/2023 9:02 AM CDT 12/26/2023 9:09 AM CDT Narrative LABORATORY - 12/26/2023 9:37 AM CDT The Xpert Xpress Strep A test, performed on the [employer], is a rapid, qualitative in [...] MD LAB - MICRO GENER AL ORDERABLES [facility] Lab [address] Lab (1st floor, no room number) [place] [address], [facility] * Hepatitis C antibody (12/21/2023 1:39 PM CDT) Only the most recent of2 resultswithin the time period is included. Hepatitis C Antibody Nonreactive Nonreactive 12/22/2023 2:27 AM CDT [facility] Comment:A nonreactive screen ing test result [...] 12/21/2023 1:39 PM CDT Jaret Cortez APRN FAST FOOD SERVER LAB - BLOOD ORD ERABLES [facility] [place] [facility] [address], [address] [place] [address], [facility] * Comprehensive metabolic panel (12/21/2023 1:39 PM CDT) [facility] Sodium 138 135 - 145 mmol/L 12/21/2023 [...] 12/21/2023 1:39 PM CDT Jaret Cortez APRN FAST FOOD SERVER LAB - BLOOD ORD ERABLES [facility] [address] Lab (1st floor, no room number) [place] [address] * XR Chest 2 Views (12/21/2023 [...] CNP LAB - URINE ORD ERABLES LABORATORY [facility] Lab [address] [facility] Lab (no room number, 1st floor of clinic) [place] [address], [facility] [phone] * UA with Microscopic reflex to Culture - Clinic Collect (12/21/2023 12:44 PM CDT) Color Urine Yellow Colorless, Straw, Light Yellow, Yellow 12/21/2023 12:58 PM CDT [facility] Appearance Urine Clear Clear 12/21/19 12:58 PM CDT [facility] Glucose Urine Negative Negative mg/dL 12/21/2023 12:58 PM CDT [facility] Bilirubin Urine Negative Negative 4 12:58 PM CDT [facility] Ketones Urine Negative Negative mg/dL 12/21/2023 12:58 PM CDT [facility] Specific [place] Urine 1.010 1.003 - 1.035 12/21/2023 12:58 PM CDT LABORATORY Blood Urine Negative Negative 12/21/2023 12:58 [...] CNP LAB - URINE ORD ERABLES LABORATORY [facility] Lab [address] [facility] Lab (no room number, 1st floor of clinic) [place] [address], [facility] [phone] * EKG 12-lead complete w/read - Clinics (12/21/2023) Jaret Cortez APRN, CNP ECG ORDERABLES * US Abdomen Limited (11/24/2023 9:30 AM CDT) Anatomical Region Laterality Modality Abdomen/Pelvis Ultrasound Impressions 11/24/2023 4:03 PM CDT IMPRESSION: ??Fatty liver. Hepatomegaly. No gallstones identified. [facility] ID: ??[id number] Narrative 11/24/2023 4:03 PM CDT ULTRASOUND ABDOMEN [...] gallstones identified. [facility] ID: [id number] Lauren Claudio PA-C [facility] ORDERABLES * Hepatitis B surface antigen (11/14/2023 10:43 AM CDT) Hepatitis B Surface Antigen Nonreactive Nonreactive 11/14/2023 8:10 PM CDT [facility] Blood BLOOD SPECIMEN / Unknown Venipuncture / Unknown 11/14/2023 10:43 AM CDT 11/14/2023 10:45 AM CDT Yolande Mora MD LAB - BLOOD ORDERABL ES [facility] Core Lab [address], [address] [place] [address] * (ABNORMAL) UA Macroscopic with reflex [...] 11/14/2023 10:13 AM CDT [facility] Specific [place] Urine 1.010 1.003 - 1.035 11/14/2023 10:13 [...] ORDERABL ES LABORATORY [facility] Lab [address] [facility] (no room number, 1st floor of clinic) [place] [address] [phone] * Urine Culture Aerobic Bacterial - lab collect (11/14/2023 9:51 AM CDT) Culture <10,000 CFU/mL Mixture of Urogenital Darlene 11/15/2023 10:53 AM CDT [facility]AT[facility] Urine URINE SPECIMEN OBTAINED BY CLEAN CATCH PROCEDURE / Unknown Non-blood Collection / Unknown 11/14/2023 9:51 AM CDT 11/14/2023 10:04 AM CDT Yolande Mora MD LAB - MICRO GENERAL ORDERABLES [facility] LABORAT[facility] Inf. Diseases Diag. Lab [address] [place] [address], [facility] * Pap screen reflex to HPV [...] component of this testing was completed at [facility] 09/25/2021 10:27 AM CDT SPECIALTY LABS Brushing CERVIX UTERI STRUCTURE / Unknown 09/22/2021 3:14 PM CDT 09/22/2021 3:48 PM CDT Marija MCCORMICK [facility] [address] [facility] [address] [facility], [address] [place] [address], [facility] [phone] from Last 3 Months or Most Recently Relevant to Health Maintenance Advance Directives For more information, please contact: [phone] * Full Code (Latest Code Status on File) Date Activated Date Inactivated Comments 01/14/2021 7:36 AM 01/15/2021 6:05 PM All basic and advanced life-sustaining interventions are performed as appropriate Question Answer Comments Code status determined by: Discussion with corona dewitt/ legal decision maker Care Teams Artificial Insemination Technician Relationship Specialty Start Date End Date Esha Grimm PA-C [address] [place] [address] PCP - General Family Medicine 05/04/23 Diana Desir, [facility] [address] [place] [address] Pharmacist Pharmacist 04/17/21 Rain Galaviz PA-C [address] [place] [address] [address] [place] G[place]IA [address] Physician Welder Fitter Apprentice Dermatology 04/28/21 Tavia Wyatt MD [address] [place] [address] DR [facility] [address] Dermatology 07/14/21 Erica Farrell APRN [employer] FOOD SERVER [address] [place] [address] Nurse Practitioner Cardiovascular Disease 09/09/21 Rich Barrett MD [address] [place] [address] 608155 Physician Ophthalmology 01/21/22 Neil Kent MD [address] [place] [address] [id number] Dermatology 02/24/22 Diana Desir, [facility] [address] [place] [address] Assigned MTM Pharmacist 04/07/22 Livan Sharif MD [address] [place] [address] Cardiovascular Disease 05/14/22 Catherine Cm MD [address] [facility] [address] [place] [id number] Cardiovascular Disease 07/21/22 Valery Veronica, PA-C [address] [place], [place] [phone] Physician Welder Fitter Apprentice Dermatology 07/21/22 Brea Quinn APRN [employer]OD SERVER [address] [place], [place] [phone] Nurse Practitioner Dermatology 09/21/22 Brea Quinn APRN [employer]ST FOOD SERVER [address] [place], [place] [phone] Assigned Surgical Provider 10/09/22 [place] [address] [place], [place] 607897 Assigned Musculoskeletal Provider 10/09/22 Alfonso Renteria MD [address] [facility] [address] [place], [place] 635896 Assigned Neuroscience Provider 04/02/23 Radha Lomeli APRN FAST FOOD SERVER [address] [facility] [address] [place] [phone] Assigned Heart and Vascular Provider 05/28/23 Jelena David OD [address] [facility] [place] [address] MD Ophthalmology 06/15/23 Esha Grimm PA-C [address] [place] [phone] Assigned PCP 07/16/23 Valery Veronica PA-C [address] [place] [address] Physician Welder Fitter Apprentice Dermatology 09/19/23 Rey Tay MD [address] [place] [address] MD Gastroenterology 09/20/23 Rocky Zepeda DO [address] [place] [address] Physician Gastroenterology 09/20/23 Philip Dumont MD [address] [place] [address] Physician Ophthalmology 09/22/23 Meredith Carrera PA-C [address] [place] [address] Assigned Gastroenterology Provider 11/01/23 Neil Kent MD [address] [address] Dermatology 11/02/23 [place] [address] [place] [address] Neurological Surgery 12/26/23
--- OUTSIDE RECORDS SUMMARY | 2024-02-12 05:41 | XMS_ITS | Encounter Summary ---
Author Organization [facility] Address [address] [place] [address] Care Team Providers Care Cro Name Role Phone Thang Diana [place] [facility] Unavailable Rain Galaviz PA-C Unavailable [phone] Tavia Wyatt MD Unavailable Unavailable Erica Farrell WAREHOUSE ORDER PULLER OIL AGENT Unavailable Rich Barrett MD Unavailable Neil Kent MD Unavailable Diana Desir Stanislav [facility] Unavailable [phone] Livan Sharif MD Unavailable Catherine Cm MD Unavailable + Valery Veronica PA-C Unavailable [phone] Brea Quinn WAREHOUSE ORDER PULLER OIL AGENT Unavailable Brea Quinn WAREHOUSE ORDER PULLER OIL AGENT Unavailable Jose Francisco Johnson MD Unavailable Alfonso Renteria MD Unavailable + [phone] Esha Grimm PA-C Primary Care Provider [phone] Radha Lomeli WAREHOUSE ORDER PULLER OIL AGENT Unavailable [phone] Jelena David OD Unavailable Esha Grimm PA-C Unavailable [phone] Valery Veronica PA-C Unavailable [phone] Rey Tay MD Unavailable Rocky Zepeda Unavailable Philip Dumont MD Unavailable [phone] Meredith Carrera PA-C Unavailable Neil Kent MD Unavailable Juan Pablo Emmanuel MD Unavailable [phone] Reason for Visit * Reason Comments STD Wants to do std scre ening. Pt has new sex partner Vaginal Problem White discharge from vagina along with strong odor Chest Pain Pt started vaping 2- 3 months ago and about 5 days ago noticed tightness in chest Encounter Details Date Type Department Care Team (Late st Contact Info) Description 02/07/2024 10:00 AM CDT Office Visit [address] [address] Lauren Claudio PA-C [id number] [place] [address] Yeast infection of the vagina (Primary Dx); Bacterial vaginosis; Vaginal discharge; Screening examination for venereal disease; Chest tightness Social History Tobacco Use Types Packs/Day Years [...] Answer Date Recorded PHQ-2 Score 1 02/07/2024 [facility] - [...] exercise at this level? 30 min 03/10/2023 [place] Depression Scale Answer Date Recorded [place] Depression Score 5 01/14/2021 Last EPDS Self [...] Mass Index 29.39 02/07/2024 9:45 AM CDT documented in this encounter Progress Notes * Lauren Claudio PA-C - 02/07/2024 10:00 AM CDT Assessment & Plan Yeast infection of the vagina Testing positive for yeast and BV. Treated as noted below. - fluconazole (DIFLUCAN) 150 MG tablet; Take 1 tablet (150 mg) by mouth once for 1 dose Bacterial vaginosis Treated as noted below. - metroNIDAZOLE (METROGEL) 0.75 % vaginal gel; Place 1 applicator (5 g) vaginally daily for 5 days Vaginal discharge - Wet prep - lab collect; Future - Chlamydia trachomatis/Neisseria gonorrhoeae by PCR - Clinic Collect - Wet prep - lab collect Screening examination for venereal disease Screened due to recent new partner. - Wet prep - lab collect; Future - Chlamydia trachomatis/Neisseria gonorrhoeae by PCR - Clinic Collect - HIV Antigen Antibody Combo; Future - Treponema Abs w Reflex to RPR and Titer; Future - Wet prep - lab collect - HIV Antigen Antibody Combo - Treponema Abs w Reflex to RPR and Titer Chest tightness Patient thinks it is related to recently restarting vaping. She would like to quit again. Declines prescriptions for assistance. With recent flight D-dimer obtained and electrolytes panel as well. Asthma on problem list but patient's PFTs normal when checked. Removed diagnosis for now. Due to SVT no albuterol prescribed for her today. - Basic metabolic panel (Ca, Cl, CO2, Creat, Gluc, K, Na, BUN); Future - D dimer, quantitative; Future - Basic metabolic panel (Ca, Cl, CO2, Creat, Gluc, K, Na, BUN) - D dimer, quantitative Subjective Kim is a 23 year old, presenting for the following health issues: STD (Wants to do std screening. Pt has new sex partner), Vaginal Problem (White discharge from vagina along with strong odor), and Chest Pain (Pt started vaping 2-3 months ago and about 5 days ago noticed tightness in chest) 02/07/2024 9:44 AM Additional Questions Roomed by ana m Accompanied by self History of Present Illness Reason for visit: Vaginal health and chest/lung Symptom onset: 3-7 days ago Symptoms include: Strong odor, discharge, chest/lung discomfort Symptom intensity: Moderate Symptom progression: Staying the same Had these symptoms before: Yes Has tried/received treatment for these symptoms: Yes Previous treatment was successful: Yes Prior treatment description: Medication What makes it worse: No What makes it better: No She eats 2-3 servings of fruits and vegetables daily.She consumes 0 sweetened beverage(s) daily.Sheexercises with enough effort to increase her heart rate 20 to 29 minutes per day. She exercises with enough effort to increase her heart rate 3 or less days per week. She is taking medications regularly. Genitourinary - Female Onset/Duration: possible BV symptoms of strong odor and vaginal discharge Intensity: severe Progression of Symptoms: worsening Accompanying Signs & Symptoms: Fever/chills: No Flank pain: No Nausea and vomiting: No Vaginal symptoms: discharge and odor Abdominal/Pelvic Pain: No History: History of frequent UTI???s: YES History of kidney stones: Sexually Active: YES- new partner Possibility of : Precipitating or alleviating factors: chest pain due to vaping (she some chest tightness and had a SVT episode), She denies any shortness of breath. Therapies tried and outcome: Objective BP 108/71 (BP Location: Left arm, Patient Position: Sitting, Cuff Size: Adult Regular) Pulse 78 Temp 98.4 ??F (36.9 ??C) (Oral) Resp 16 Ht 1.707 m (5' 7.2) Wt 85.6 kg (188 lb 12.8 oz) SpO2 98% BMI 29.39 kg/m?? Body mass index is 29.39 kg/m??. Physical Exam GENERAL: No acute distress HEENT: Normocephalic CARDIAC: Regular rate and rhythm. No murmurs. PULMONARY: Lungs are clear to auscultation bilaterally. No wheezes, rhonchi or crackles. NEURO: Alert and non-focal Results for orders placed or performed in visit on 02/07/24 (from the past 24 hour(s)) Wet prep - lab collect Specimen: Vagina; Swab Result Value Ref Range Trichomonas Absent Absent Yeast Present (A) Absent Clue Cells Present (A) Absent WBCs/high power field 1+ (A) None *Note: Due to a large number of results and/or encounters for the requested time period, some results have not been displayed. A complete set of results can be found in Results Review. Signed Electronically by: Lauren Claudio PA-C documented in this encounter Plan of Treatment Upcoming Encounters Date Type Department Care Team (Latest Contact Info) Description 02/14/2024 12:50 PM CDT Therapy Visit [facility] [address] [place] [address] Rustam Medina, PT [facility] [id number] [place] [address] 03/06/2024 3:00 PM CDT Office Visit [facility] [address] [facility] [address] [place] [phone] Radha Lomeli APRN CNP [address] [facility] [address] [place], [place] [address] 03/07/2024 9:00 AM CDT Hospital Encounter [facility] [address] [facility] [address] [place] [phone] Rocky Zepeda DO 500 [place], [place] [phone] 03/07/2024 9:00 AM CDT - 03/07/2024 9:30 AM CDT Surgery [facility] [address] [facility] [address] [place] [phone] Rocky Zepeda DO 500 [place], [place] [address] Esophagoscopy, gastroscopy, duodenoscopy (EGD), combined 06/21/2024 2:00 PM [facility] Office Visit [facility] [place] [address] [facility], [address] [place] [phone] [place] [address] [place], [place] [address] Johnny Penn MD [address] [place], [place] [address] Scheduled Procedures Name Priority Associated Diagnoses Date/Ti me ESOPHAGOGASTRODUODENOSCOPY Eosinophilic esophagitis Esophageal dysphagia 03/07/2024 9:00 AM CDT documented as of this encounter Procedures Procedure Name Priority Date/Time Associated Diagnosis Comments HIV ANTIGEN ANTIBODY COMBO Routine 02/07/2024 10:08 AM CDT Screening examination for venereal disease TREPONEMA ABS W REFLEX TO RPR AND TITER Routine 02/07/2024 10:08 AM CDT Screening examination for venereal disease CHLAMYDIA TRACHOMATIS/NEISSERIA GONORRHOEAE BY PCR Routine 02/07/2024 10:08 AM CDT Vaginal discharge Screening examination for venereal disease WET PREPARATION Routine 02/07/2024 10:08 AM CDT Vaginal discharge Screening examination for venereal disease D DIMER QUANTITATIVE Routine 02/07/2024 10:08 AM CDT Chest tightness BASIC METABOLIC PANEL Routine 02/07/2024 10:08 AM CDT Chest tightness documented in this encounter Results * D dimer, quantitative (02/07/2024 10:08 AM CDT) D-Dimer Quantitative <0.27 0.00 - 0.50 ug/mL [...] PA-C LAB - BLOOD ORDERA BLES OX [facility] [address] Lab (no room number, 1st floor of clinic) [place] [address], [facility] [phone] * Basic metabolic panel (Ca, Cl, CO2, Creat, Gluc, K, Na, BUN) (02/07/2024 10:08 AM CDT) Sodium 138 135 - 145 mmol/L 02/07/2024 [...] 4:30 PM CDT [facility] Comment:eGFR calculated usin g 2020 CKD-EPI equation. Calcium 9.3 8.8 - 10.4 [...] LAB - BLOOD ORDERA BLES [facility] 500 [facility], [address] * Treponema Abs w Reflex to RPR and Titer (02/07/2024 10:08 AM CDT) Treponema Antibody Total Nonreactive Nonreactive 02/07/2024 8:21 PM CDT SPECIALTY CORE/PROT/EN DO Blood BLOOD SPECIMEN / Unknown Venipuncture / Unknown 02/07/2024 10:08 AM CDT 02/07/2024 10:13 AM CDT Lauren Claudio PA-C LAB - BLOOD ORDERA BLES SPECIALTY CORE/PROT/ENDO Specialty Core/Prot/Endo 500 [facility], [address] * HIV Antigen Antibody Combo (02/07/2024 10:08 AM CDT) HIV Antigen Antibody Combo Nonreactive Nonreactive 02/07/2024 9:27 PM CDT [facility] Comment:Negative HIV-1 p24 a [...] 10:08 AM CDT 02/07/2024 10:13 AM CDT E Claudio PA-C LAB - BLOOD ORDERA BLES [facility] 500 [facility], [address] [place] [address] * Chlamydia trachomatis/Neisseria gonorrhoeae by PCR - Clinic Collect (02/07/2024 10:08 AM CDT) Chlamydia Trachomatis Negative Negative 02/07/2024 6:31 PM CDT [facility] Comment: Negative for C. trachomatis rRNA by operations plant attendant mediated amplification. A negative result by operations plant attendant mediated amplification does not preclude the presence of infection because results are dependent on proper and adequate collection, absence of inhibitors and sufficient rRNA to be detected. Neisseria gonorrhoeae Negative Negative 02/07/2024 6:31 PM CDT [facility] Comment:Negative for N. gono rrhoeae rRNA by operations plant attendant mediated amplification. A negative result by operations plant attendant mediated amplification does not preclude the presence of C. trachomatis infection because results are dependent on proper and adequate collection, absence of inhibitors and sufficient rRNA to be detected. Swab VAGINAL STRUCTURE / Unknown Non-blood Collection / Unknown 02/07/2024 10:08 AM CDT 02/07/2024 10:13 AM CDT Lauren Claudio PA-C LAB - MICRO GENERA L ORDERABLES [facility] Inf. Diseases Diag. Lab 500 [facility], [address] [place] [address] * (ABNORMAL) Wet prep - lab collect (02/07/2024 10:08 AM CDT) Trichomonas Absent Absent REINA 02/07/2024 10:22 AM [...] PA-C LAB - MICRO GENERA L ORDERABLES LABORATORY [facility] [address] (no room number, 1st floor of clinic) [place] [address], [facility] [phone] documented in this encounter Visit Diagnoses Diagnosis Yeast infection of the vagina- Primary Candidiasis of vulva and vagina Bacterial vaginosis Vaginitis and vulvovaginitis, unspecified Vaginal discharge Leukorrhea, not specified as infective Screening examination for venereal disease Chest tightness Other chest pain Eosinophilic esophagitis Esophageal dysphagia Dysphagia, pharyngoesophageal phase documented in this encounter Additional Health Concerns Assessment Noted Time PHQ-9 Depression Total Score: 3 02/07/20 24 9:33 AM CDT documented as of this encounter Care Teams Cro Relationship Specialty Start Date End Date Esha Grimm PA-C [address] [place] [phone] PCP - General Family Medicine 05/04/23 Diana Desir, [facility] [address] [place], [place] 5[address] Pharmacist Pharmacist 04/17/21 Rain Galaviz PA-C [address] [place] [address] [place] [address] Physician Lens Mounter Dermatology 04/28/21 Tavia Wyatt MD [address] [place] [address] [place] [address] Dermatology 07/14/21 Erica Farrell APRN OIL AGENT [address] [place] [phone] [place] [address] Nurse Practitioner Cardiovascular Disease 09/09/21 Rich Barrett MD 516 [facility] CL[address] [place], [place] [address] Physician Ophthalmology 01/21/22 Neil Kent MD 500 [place], [place] 921205 Dermatology 02/24/22 Diana Desir, [facility] [address] [place], [place] 728896 Assigned [facility] Pharmacist 04/07/22 Livan Sharif MD [address] [facility] [address] [place], [place] [address] Cardiovascular Disease 05/14/22 Catherine Cm MD [address] [facility] [address] [place], [place] 4489[address] Cardiovascular Disease 07/21/22 Valery Veronica, PA-C [address] [place], [place] 468085 Physician Lens Mounter Dermatology 07/21/22 Brea Quinn APRN OIL AGENT 500 [place], [place] 6[address] Nurse Practitioner Dermatology 09/21/22 Brea Quinn APRN OIL AGENT [address] [facility] [place] 197662 Assigned Surgical Provider 10/09/22 [place] [address] [place] [address] Assigned Musculoskeletal Provider 10/09/22 Alfonso Renteria MD [address] [facility] 200 [place], [place] 3950[address] Assigned Neuroscience Provider 04/02/23 Radha Lomeli APRN OIL AGENT [address] [facility] [address] [place], [place] [address] Assigned Heart and Vascular Provider 05/28/23 [place] David OD [address] [facility] [address] [place] [id number] Ophthalmology 06/15/23 Esha Grimm PA-C [address] [place] [address] Assigned PCP 07/16/23 Valery Veronica PA-C [address] [place] [address] 534525 Physician Lens Mounter Dermatology 09/19/23 Rey Tay MD [address] [place] [address]305 Gastroenterology 09/20/23 Rocky Zepeda DO [address] [place] [address] 772835 Physician Gastroenterology 09/20/23 Philip Dumont MD 516 [place] [address] Physician Ophthalmology 09/22/23 Meredith Carrera PA-C 909 [place] [address] Assigned Gastroenterology Provider 11/01/23 Neil Kent MD [address] [address] Dermatology 11/02/23 [place] [address] [place] [address] Neurological Surgery 12/26/23 documented as of this encounter
--- OUTSIDE RECORDS SUMMARY | 2024-02-12 05:41 | XMS_ITS | Encounter Summary ---
Author Organization [facility] Address [address] [place] [address] Care Team Providers Care Channel Development Manager Name Role Phone Thang Diana [place] [facility] Unavailable Rain Galaviz PA-C Unavailable [phone] Tavia Wyatt MD Unavailable Unavailable Erica Farrell LAW FIRM PARTNER SENIOR REPORT DEVELOPER Unavailable Rich Barrett MD Unavailable Neil Kent MD Unavailable Diana Desir Stanislav [facility] Unavailable [phone] Livan Sharif MD Unavailable Catherine Cm MD Unavailable + Valery Veronica PA-C Unavailable [phone] Brea Quinn LAW FIRM PARTNER SENIOR REPORT DEVELOPER Unavailable Brea Quinn LAW FIRM PARTNER SENIOR REPORT DEVELOPER Unavailable [phone] Jose Francisco Johnson MD Unavailable Alfonso Renteria MD Unavailable + [phone] Esha Grimm PA-C Primary Care Provider Radha Lomeli LAW FIRM PARTNER SENIOR REPORT DEVELOPER Unavailable [phone] Jelena David OD Unavailable Esha GrimmC Unavailable [phone] Valery VeronicaC Unavailable [phone] Rey Tay MD Unavailable Rocky Zepeda DO Unavailable Philip Dumont MD Unavailable [phone] Meredith CarreraC Unavailable [phone] Neil Kent MD Unavailable Juan Pablo Emmanuel MD Unavailable [phone] Encounter Details Date Type Department Care Team (Latest Contact Info) Description 02/07/2024 Travel Social History Tobacco Use Types Packs/Day [...] often do you attend [facility] or voodoo services? 1 to 4 [...] Answer Date Recorded PHQ-2 Score 1 02/07/2024 [facility] [place] [...] exercise at this level? 30 min 03/10/2023 [place] Depression Scale Answer Date Recorded [place] Depression Score 5 01/14/2021 Last EPDS [...] Description 02/14/2024 12:50 PM CDT Therapy Visit [facility] [address] [address] Rustam Medina, PT [facility] [address] [place] [address] 03/06/2024 3:00 PM CDT Office Visit [facility] [place] [address] [facility] [address] [place] [phone] Radha Lomeli, LAW FIRM PARTNER SENIOR REPORT DEVELOPER [address] [place], [place] [address] 03/07/2024 9:00 AM CDT Hospital Encounter [address] [phone] Rocky Zeepda DO 500 [place], [place] [address] 03/07/2024 9:00 AM CDT - 03/07/2024 9:30 AM CDT Surgery [address] [phone] Rocky Zepeda DO 500 [place] [address] Esophagoscopy, gastroscopy, duodenoscopy (EGD), combined 06/21/2024 2:00 PM PHOTO TECHNICIAN Office Visit [facility] Neurology [facility] [address] [facility], [address] [place] [address] [place] [address] [place], [place] [phone] Johnny Penn MD [address] [facility] [place] [facility] [place] [address] Scheduled Procedures Name Priority Associated Diagnoses Date/Ti ca ESOPHAGOGASTRODUODENOSCOPY Eosinophilic esophagitis Esophageal dysphagia 03/07/2024 9:00 AM CDT documented as of this encounter Visit Diagnoses Not on filedocumented in this encounter Additional Health Concerns Assessment Noted Time PHQ-9 Depression Total Score: 3 02/07/20 24 9:33 AM CDT documented as of this encounter Care Teams Channel Development Manager Relationship Specialty Start Date End Date Esha Grimm PA-C [address] [place] [address] PCP - General Family Medicine 05/04/23 Diana Desir, [facility] [address] [facility] [place] [address] Pharmacist Pharmacist 04/17/21 Rain Galaviz PA-C [address] [place] [address] [address] [place] [address] Physician Cutter First Dermatology 04/28/21 Tavia Wyatt MD [address] [place] [address] [address] [place] [address] Dermatology 07/14/21 Erica Farrell APRN SENIOR REPORT DEVELOPER [address] [place] 8329[address] Nurse Practitioner Cardiovascular Disease 09/09/21 Rich Barrett MD 516 [facility] [address] [place], [place] [address] Physician Ophthalmology 01/21/22 Neil Kent MD 500 [place], [place] 253065 Dermatology 02/24/22 Diana Desir, [facility] [address] [place], [place] 35[address]26 Assigned [facility] Pharmacist 04/07/22 Livan Sharif MD [address] [place] [address] Cardiovascular Disease 05/14/22 Catherine Cm MD [address] [place] [address] Cardiovascular Disease 07/21/22 Valery Veronica PAUcheC 909 [place], [place] [address] Physician Cutter First Dermatology 07/21/22 Brea Quinn APRN SENIOR REPORT DEVELOPER 500 [place], [place] 22[address] Nurse Practitioner Dermatology 09/21/22 Brea Quinn APRN SENIOR REPORT DEVELOPER [address] [facility] [place] [address] Assigned Surgical Provider 10/09/22 [place] [address] [facility] 300 [place] [address] Assigned Musculoskeletal Provider 10/09/22 Alfonso Renteria MD [address] [facility] 200 [place], [place] [address] Assigned Neuroscience Provider 04/02/23 Radha Lomeli, ARLENE SENIOR REPORT DEVELOPER 6[address] [facility] [address] [place], [place] 5[address] Assigned Heart and Vascular Provider 05/28/23 Jelena David OD [address] [facility] [place] [address] Ophthalmology 06/15/23 Esha Grimm PA-C [address] [place] [address] Assigned PCP 07/16/23 Valery Veronica PA-C [address] [place] [address] 675875 Physician Cutter First Dermatology 09/19/23 Rey Tay MD [address] [place] [address] 968325 Gastroenterology 09/20/23 Rocky Zepeda DO [address] [place] [address] Physician Gastroenterology 09/20/23 Philip Dumont MD 516 [place] [address] Physician Ophthalmology 09/22/23 Meredith Carrera PA-C [address] [place] [address] Assigned Gastroenterology Provider 11/01/23 Neil Kent MD [address] [address] Dermatology 11/02/23 [place] [address] [place] [address] Neurological Surgery 12/26/23 documented as of this encounter
--- OUTSIDE RECORDS SUMMARY | 2024-02-12 05:41 | XMS_ITS | Encounter Summary ---
Author Organization [facility] Address [address] [place] [address] Care Team Providers Care First Press Operator Name Role Phone Thang Diana [place] [facility] Unavailable Rain Galaviz PA-C Unavailable Tavia Wyatt MD Unavailable Unavailable Erica Farrell BINDER OPERATOR TRAFFIC MONITOR SPECIALIST Unavailable Rich Barrett MD Unavailable Neil Kent MD Unavailable Diana Desir Stanislav [facility] Unavailable [phone] Livan Sharif MD Unavailable Catherine Cm MD Unavailable + Valery Veronica PA-C Unavailable [phone] Brea Quinn BINDER OPERATOR TRAFFIC MONITOR SPECIALIST Unavailable Brea Quinn BINDER OPERATOR TRAFFIC MONITOR SPECIALIST Unavailable Jose Francisco Johnson MD Unavailable Alfonso Renteria MD Unavailable + [phone] Esha Grimm PA-C Primary Care Provider Radha Lomeli BINDER OPERATOR TRAFFIC MONITOR SPECIALIST Unavailable [phone] Jelena David OD Unavailable Esha Grimm PA-C Unavailable [phone] Valery VeronicaC Unavailable Rey Tay MD Unavailable Duane Rocky DO Unavailable Philip Dumont MD Unavailable Meredith CarreraC Unavailable [phone] Neil Kent MD Unavailable Juan Pablo Emmanuel MD Unavailable Reason for Visit * Reason Onset Date Comments Symptoms 02/06/2024 VAGINAL SYMPTOMS THAT PATIENT WOULD LIKE TO GET LAB ORDERS FOR Encounter Details Date Type Department Care Team (Late st Contact Info) Description 02/06/2024 Telephone [facility] [address] [place] [address] Esha Grimm PA-C [address] [place] [address] Symptoms (VAGINAL SYMPTOMS THAT PATIENT WOULD LIKE TO GET LAB ORDERS FOR ) Social History Tobacco Use Types Packs/Day [...] Answer Date Recorded PHQ-2 Score 1 02/07/2024 [facility] - Occupational [...] exercise at this level? 30 min 03/10/2023 Jenkins Depression Scale Answer Date Recorded Jenkins Depression Score 5 01/14/2021 Last EPDS Self [...] encounter Miscellaneous Notes * Telephone Encounter - Erica David MA - 02/06/2024 2:35 PM CDT Tuesday Arrive by 9:40 AM With Aminta Symptoms - UTI * Telephone Encounter - Anthony Doe PA-C - 02/06/2024 2:18 PM CDT Please call patient to let her know that we recommend an e-visit to get these orders placed and treatment ordered if needed. Anthony Doe PA-C on 02/06/2024 at 2:19 PM (for Esha Grimm PA-C) * Telephone Encounter - Diana Junior - 02/06/2024 12:49 PM CDTSummary: VAGINAL SYMPTOMS THAT PATIENT WOULD LIKE TO GET LAB ORDERS FOR Reason for Call: Other SYMTPOMS Detailed comments: VAGINAL SYMPTOMS THAT PATIENT WOULD LIKE TO GET LAB ORDERS FOR PATIENT SUSPECTS BV OR YEAST INFECTION Phone Number Patient can be reached at: Cell number on file: @[email or web address]@ Best Time: LISA Can we leave a detailed message on this number? YES Call taken on 02/06/2024 at 12:50 PM by Diana Junior documented in this encounter Plan of Treatment Upcoming Encounters Date Type Department Care Team (Latest Contact Info) Description 02/14/2024 12:50 PM CDT Therapy Visit [address] [phone] Rustam Medina, [facility] [address] [place] [address] 03/06/2024 3:00 PM CDT Office Visit [facility] [place] [address] [facility] [address] [place] [phone] Radha Lomeli, BINDER OPERATOR TRAFFIC MONITOR SPECIALIST [address] [place] [address] 03/07/2024 9:00 AM CDT Hospital Encounter [address] [phone] Rocky Zepeda DO [address] [place] [address] 03/07/2024 9:00 AM CDT - 03/07/2024 9:30 AM CDT Surgery [address] [phone] Rocky Zepeda DO [address] [place], [place] [address] Esophagoscopy, gastroscopy, duodenoscopy (EGD), combined 06/21/2024 2:00 PM CAR PARK ATTENDANT Office Visit [facility] Neurology [facility] [address] [facility], [address] [place] [phone] [place] [address] [place], [place] [phone] Johnny Penn MD [address] [place] [address] Scheduled Procedures Name Priority Associated Diagnoses Date/Ti nc ESOPHAGOGASTRODUODENOSCOPY Eosinophilic esophagitis Esophageal dysphagia 03/07/2024 9:00 AM CDT documented as of this encounter Visit Diagnoses Not on filedocumented in this encounter Additional Health Concerns Assessment Noted Time PHQ-9 Depression Total Score: 4 06/20/20 23 8:40 AM CAR PARK ATTENDANT documented as of this encounter Care Teams First Press Operator Relationship Specialty Start Date End Date Esha Grimm PA-C [address] [place] [phone] PCP - General Family Medicine 05/04/23 Diana Desir, [facility] [address] [place] [address] Pharmacist Pharmacist 04/17/21 Rain Galaviz PA-C [address] [place] [address] [address] [place] [id number] Physician Trailhead Construction Worker Dermatology 04/28/21 Tavia Wyatt MD [address] [place] [address] [address] [place] [address] Dermatology 07/14/21 StoErica pereira APRN TRAFFIC MONITOR SPECIALIST [address] [place], [place] [phone] Nurse Practitioner Cardiovascular Disease 09/09/21 Rich Barrett MD [address] [facility] [address] [place] [address] Physician Ophthalmology 01/21/22 Neil Kent MD [address] [place], [place] [phone] Dermatology 02/24/22 Diana Desir, [facility] [address] [place], [place] [phone] Assigned [place] Pharmacist 04/07/22 Livan Sharif MD [address] [place], [place] [address] Cardiovascular Disease 05/14/22 Catherine Cm MD [address] [place], [place] [address] Cardiovascular Disease 07/21/22 Valery Veronica, PA-C [address] [place], [place] [address] Physician Trailhead Construction Worker Dermatology 07/21/22 Brea Quinn APRN TRAFFIC MONITOR SPECIALIST [address] [place], [place] [address] Nurse Practitioner Dermatology 09/21/22 Brea Quinn APRN TRAFFIC MONITOR SPECIALIST [address] [facility] [place] [address] Assigned Surgical Provider 10/09/22 [place] [address] [place] [address] Assigned Musculoskeletal Provider 10/09/22 Alfonso Renteria MD [address] [facility] [address] [place], [place] [phone] Assigned Neuroscience Provider 04/02/23 Radha Lomeli APRN TRAFFIC MONITOR SPECIALIST [address] [facility] [address] [place] [address] Assigned Heart and Vascular Provider 05/28/23 Jelena David OD [address] [facility] [place] [address] Ophthalmology 06/15/23 Esha Grimm PA-C [address] [place] [phone] Assigned PCP 07/16/23 Valery Veronica PA-C [address] [place] [id number] Physician Trailhead Construction Worker Dermatology 09/19/23 Rey Tay MD [address] [place] [id number] Gastroenterology 09/20/23 Rocky Zepeda DO [address] [place] [address] Physician Gastroenterology 09/20/23 Philip Dumont MD [address] [place], [place] [address] Physician Ophthalmology 09/22/23 Meredith Carrera PA-C [address] [place] [address] Assigned Gastroenterology Provider 11/01/23 Neil Kent MD [address] [address] Dermatology 11/02/23 [place] [address] [place] [address] Neurological Surgery 12/26/23 documented as of this encounter
--- OUTSIDE RECORDS SUMMARY | 2024-02-12 05:41 | XMS_ITS | Clinical Summary ---
Author Organization [facility] Address [address] [place] [address] Care Team Providers Care Freelance Interpreter/Translator Name Role Phone ThangKendrickDiana T [facility] Unavailable Rain Galaviz PA-C Unavailable Tavia Wyatt MD Unavailable Unavailable Erica Farrell [employer] Unavailable Rich Barrett MD Unavailable Neil Kent MD Unavailable Diana Desir Stanislav [facility] Unavailable [phone] Livan Sharif MD Unavailable Catherine Cm MD Unavailable + Valery Veronica PA-C Unavailable [phone] Brea Quinn [employer] Unavailable [phone] Brea Quinn [employer] Unavailable Jose Francisco Johnson MD Unavailable Alfonso Renteria MD Unavailable [phone] Esha Grimm PA-C Primary Care Provider [phone] Radha Lomeli [employer] Unavailable [phone] Jelena David OD Unavailable Wicho Grimmlincoln Medina PA-C Unavailable [phone] Valery VeronicaC Unavailable [phone] Rey Tay MD Unavailable Rocky Zepeda Unavailable Philip Dumont MD Unavailable Meredith Carrera-C Unavailable [phone] Neil Kent MD Unavailable Juan Pablo Emmanuel [...] available in ED consider consultation with ED Travel Rn. Relevant Medical History (at time Care Plan [...] to initiation of Care Plan: 11 Total [facility] Hospital Admissions in 12 months prior to initiation of Care Plan: 0 (she has technically had 2 admissions due to related issues with OBGYN) Expected home rescue plan: Metoprolol 12.5mg PRN PCP: Marija Edgar APRN CNP - [facility] Medicine - [facility] Specialists: Dr. Galo Burrell - Cardiology - [facility] [place] Dotson - Neurology - 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 JANENE (generalized anxiety disorder) 09/29/2020 Right ureteral stone 05/27/2020 Overview: Added automatically from request for surgery [id number] Left ureteral stone 05/27/2020 Overview: Added automatically from request for surgery [id number] Head ache 02/18/2020 Seizure 05/02/2019 Depressed 05/02/2019 Anxiety 05/02/2019 Tobacco abuse counseling 05/02/2019 Psoriasis 05/02/2019 Resolved Problems Problem Noted Date Diagnosed Date Resolved Date Neck pain 08/25/2022 08/17/2023 Lower back pain 08/25/2022 08/17/2023 Term 01/13/2021 10/11/2022 Encounter for triage in patient 12/09/2020 04/18/2023 Asthma 06/04/2020 02/07/2024 Encounters Date Type Department Care Team Description 02/07/2024 10:00 AM CDT Office Visit [address] [phone] Lauren Claudio, ROVERTO Yeast infection of the vagina (Primary Dx); Bacterial vaginosis; Vaginal discharge; Screening examination for venereal disease; Chest tightness 02/07/2024 Travel 02/06/2024 Telephone [facility] [address] [place] [phone] Esha Grimm PA-C Symptoms (VAGINAL SYMPTOMS THAT PATIENT WOULD LIKE TO GET LAB ORDERS FOR ) 02/01/2024 MyC Medical Advice [facility] Neurology Clinics - [address], [address] [place] [address] Macy Pinedo RN 01/26/2024 12:50 PM CDT Therapy Visit [facility] Rehabilitation Services [address] [phone] Ebony Cid APRN CNP Clemensen, Chad, PT Chiari malformation type I (H); Neck pain 01/26/2024 Travel 01/23/2024 10:00 AM CDT Office Visit [facility] Neurology Clinics - [address], [address] [place] [phone] Juan Pablo Emmanuel MD Neck pain (Primary Dx); Paresthesia of arm; Chiari I malformation (H) 01/23/2024 Travel 01/23/2024 Telephone [facility] Spine and Neurosurgery [address] [facility] [address] [place] [address] Ebony Cid APRN OIL FIELD ROUSTABOUT 01/22/2024 Travel 01/16/2024 Telephone [facility] [address] [place] [phone] Esha Grimm PA-C 01/11/2024 9:53 AM CDT - 01/11/2024 12:38 PM CDT Emergency [facility] Emergency Dept [address] [place] [address] Jeffrey Whalen MD Dyspnea, unspecified type Discharge Disposition: Left Without Being Seen 01/11/2024 Travel 01/09/2024 Telephone [facility] Neurology Clinics - [address], [address] [place] [phone] Juan Pablo Emmanuel MD Appointment 01/09/2024 Telephone [facility] Neurosurgery [address] [facility] [address] [place] [address] Ebony Cid APRN OIL FIELD ROUSTABOUT Results (Cervical and brain MRIs) 01/09/2024 Travel 01/06/2024 10:53 AM CDT - 01/06/2024 11:59 PM CDT Hospital Encounter [facility] [address] [place] [address] Ebony Cid APRN OIL FI[employer] ROUSTABOUT Chiari malformation type I (H); Numbness and tingling of upper extremity; Abnormal finding on MRI of brain Discharge Disposition: Home or Self Care 01/06/2024 Telephone [facility] Neurology Clinics - [place] [address] [facility], [address] [place] [phone] Juan Pablo Emmanuel MD Appointment 01/05/2024 1:40 PM CDT Office Visit [facility] Spine [facility] Neurosurgery [address] [facility] [address] [place] [address] Ebony Cid APRN CNP Abnormal finding on MRI of brain (Primary Dx); Chiari malformation type I (H); Numbness and tingling of upper extremity; Neck pain 01/05/2024 Travel 01/02/2024 PRE VISIT [facility] Neurosurgery Clinic [address] [phone] Juan Pablo Emmanuel MD Pre Visit Planning - 2 Attempts (Pre charting) 12/26/2023 9:32 AM CDT - 12/26/2023 10:06 AM CDT Emergency [facility] Emergency Dept [address] [place] [address] Chidi Kim MD Chest tightness Discharge Disposition: Home or Self Care 12/26/2023 Travel 12/26/2023 Telephone [facility] [address] [place] [phone] Esha Grimm PA-C Same Day Appointment (sore throat, body aches, headaches couple days) 12/23/2023 Travel 12/21/2023 1:20 PM CDT Ancillary Procedure [facility] [address] [place] [phone] Jaret Cortez APRN [employer]IL [employer] ROUST[employer]OUT Chest tightness; SOB (shortness of breath) 12/21/2023 12:40 PM CDT Office Visit [facility] [place] [address] [place] [phone] Jaret Cortez APRN [employer]IL [employer] ROUSTABOUT Vaginal odor (Primary Dx); Chest tightness; SOB (shortness of breath) 12/21/2023 Telephone [facility] [address] [facility] [address] [place] [phone] Livan Sharif MD Call Back (Schedule appt tomorrow ) 12/21/2023 Travel 12/02/2023 Telephone [facility] [address] [facility] [address] [place] [phone] Radha Lomeli APRN [employer]IL FI[employer] ROUSTABOUT Appointment (Clarification) 11/29/2023 MyC Medical Advice [facility] [address] [place] [phone] Esha Grimm PA-C 11/29/2023 Telephone [facility] [address] [facility], [address] [place] [address] Genny Hyman PA-C 11/24/2023 8:20 AM CDT - 11/24/2023 11:59 PM CDT Hospital Encounter [facility] [address] [place] [phone] Lauren Claudio PA-C Epigastric pain Discharge Disposition: Home or Self Care 11/24/2023 Travel 11/22/[address] [facility] [address] [place] [phone] Radha Lomeli APRN [employer]ST[employer] Refill Request (metoprolol) 11/21/2023 MyC Medical Advice [facility] Gastroenterology Clinic [address] [place] [phone] Sofia Alcantar 11/21/2023 MyC Medical Advice [facility] Gastroenterology Clinic [place] [address] [facility] [address] 4th [place] [address] Sofia Alcantar 11/18/2023 Telephone [facility] [address] [facility], [address] [place] [address] Alfonso Renteria MD 11/17/[address] [phone] Brea Quinn APRN [employer] ROUSTABOUT Refill Request (Ketoconazole 2% shampoo) 11/16/2023 MyC Medical Advice [facility] [address] [place] [phone] Asiya Reddy RN 11/16/2023 Telephone [facility] [address] [place] [phone] Esha Grimm PA-C Referral 11/15/2023 MyC Medical Advice [facility] [place] [address] [place] [phone] Vivian Grant 11/14/2023 11:00 AM CDT Office Visit [facility] [place] [address] [place] [phone] Yolande Mora MD Urinary problem (Primary Dx); Screen for STD (sexually transmitted disease); Yeast infection of the vagina 11/14/2023 Travel from Last 3 Months Immunizations Name [...] 03/10/2023 How often do you attend [facility] or sikh services? 1 to 4 times [...] Answer Date Recorded PHQ-2 Score 1 02/07/2024 [facility] [...] exercise at this level? 30 min 03/10/2023 [place] Depression Scale Answer Date Recorded [place] Depression Score 5 01/14/2021 Last EPDS [...] Description 02/14/2024 12:50 PM CDT Therapy Visit [facility] [address] [place] [phone] Rustam Medina, PT [facility] [address] [place] [address] 03/06/2024 3:00 PM CDT Office Visit [facility] Heart [facility] [address] [place] [phone] Radha Lomeli, GARB[employer] FIELD R[employer]STABOUT [address] [place] [address] 03/07/2024 9:00 AM CDT Hospital Encounter [address] [place] [phone] Rocky Zepeda DO [address] [place], [place] [address] 03/07/2024 9:00 AM CDT - 03/07/2024 9:30 AM CDT Surgery [address] [place] [phone] Rocky Zepeda DO [address] [place], [place] [phone] Esophagoscopy, gastroscopy, duodenoscopy (EGD), combined 06/21/2024 2:00 PM HOSPICE BEREAVEMENT COORDINATOR Office Visit [facility] Neurology Clinics [facility] [address] [place] [address], [address] [place] [phone] [place] [address] [place] [address] Johnny Penn MD [address] [address] Scheduled Procedures Name Priority Associated Diagnoses Date/Ti me ESOPHAGOGASTRODUODENOSCOPY Eosinophilic esophagitis Esophageal dysphagia 03/07/2024 9:00 AM CDT Health Maintenance Due Date Last Done Comments ADVANCE CARE PLANNING 2000 Pneumococcal Vaccine: Pediatrics (0 to 5 Years) and At-Risk Patients (6 to 64 Years) (2 of 2 - PCV) 09/22/2022 09/22/2021, 2000, 2000, Additional history exists COVID-19 Vaccine ( - season) 2023 ANNUAL REVIEW OF HM ORDERS 03/10/202403/10, 09/22/2021, 06/24/2020 YEARLY PREVENTIVE VISIT 03/10/2024 03/10/20, 09/22/2021, 06/24/2020, Additional history exists INFLUENZA VACCINE (#1) 2024 , 03/27/2020, 05/02/2019, Additional history exists PHQ-9 08/09/2024 02/07/2024, 06/10, 05/16/2023, Additional history exists PAP 09/22/2024 09/22/2021 CHLAMYDIA SCREENING 02/06/2025 02/07/2024, 12/21/2023, 11/14/2023, Additional history exists DTAP/TDAP/TD IMMUNIZATION (8 - [...] 12/21/2023 , 11/14/2023, 11/05/2019 HIV SCREENING Completed 02/07/2024, 12/09, 11/14/2023, Additional history exists RSV MONOCLONAL ANTIBODY Aged [...] PA-C LAB - BLOOD ORDERA BLES LABORATORY [facility] [place] Core Lab [address] [facility], [address] * Treponema Abs w Reflex to RPR and Titer (02/07/2024 10:08 AM CDT) Only the most recent of3 resultswithin the time period is included. Treponema Antibody Total Nonreactive Nonreactive 02/07/2024 8:21 PM CDT SPECIALTY CORE/PROT/EN DO Blood BLOOD SPECIMEN / Unknown Venipuncture / Unknown 02/07/2024 10:08 AM CDT 02/07/2024 10:13 AM CDT Lauren Claudio PA-C LAB - BLOOD ORDERA BLES [facility] SPECIALTY CORE/PROT/ENDO [facility] Specialty Core/Prot/Endo [address] [facility] Unit [facility], Room [address] * Chlamydia trachomatis/Neisseria gonorrhoeae by PCR - Clinic Collect (02/07/2024 10:08 AM CDT) Only the most recent of3 resultswithin the time period is included. Chlamydia Trachomatis Negative Negative 02/07/2024 6:31 PM CDT [facility] Comment: Negative for C. trachomatis rRNA by treater helper mediated amplification. A negative result by treater helper mediated amplification does not preclude the presence of infection because results are dependent on proper and adequate collection, absence of inhibitors and sufficient rRNA to be detected. Neisseria gonorrhoeae Negative Negative 02/07/2024 6:31 PM CDT [facility] Comment:Negative for N. gono rrhoeae rRNA by treater helper mediated amplification. A negative result by treater helper mediated amplification does not preclude the presence of C. trachomatis infection because results are dependent on proper and adequate collection, absence of inhibitors and sufficient rRNA to be detected. Swab VAGINAL STRUCTURE / Unknown Non-blood Collection / Unknown 02/07/2024 10:08 AM CDT 02/07/2024 10:13 AM CDT Lauren Claudio PA-C LAB - MICRO GENERA L ORDERABLES [facility]ORAT[facility] Inf. Diseases Diag. Lab [address] [facility], [address] [place] [phone] * (ABNORMAL) Wet prep - lab collect (02/07/2024 10:08 AM CDT) Only the most recent of3 resultswithin the time period is included. Trichomonas Absent Absent REINA 02/07/2024 10:22 AM [...] - MICRO GENERA L ORDERABLES CR LABORATORY [facility] Lab [address] [facility] Lab (no room number, 1st floor of clinic) [place] [address], [place] [phone] * D dimer, quantitative (02/07/2024 10:08 AM CDT) Only the most recent of3 resultswithin the time period is included. Pathologist [facility] D-Dimer Quantitative <0.27 0.00 - 0.50 ug/mL [...] - BLOOD ORDERA BLES Performing Organization Address [facility]/ZIP Co de Phone Number OX LABORATORY [facility] [address] Lab (no room number, 1st floor of clinic) [place] [address], [place] [phone] * Basic metabolic panel (Ca, Cl, CO2, Creat, Gluc, K, Na, BUN) (02/07/2024 10:08 AM CDT) Only the most recent of2 resultswithin the time period is included. Pathologist [facility] Sodium 138 135 - 145 mmol/L 02/07/2024 [...] 4:30 PM CDT [facility] Comment:eGFR calculated 2020 CKD-EPI equation. Calcium 9.3 8.8 - [...] LAB - BLOOD ORDERA BLES [facility] LABORATORY [facility] [place] [facility] [address] [facility], Room [address] [place] [phone] * HCG QUALitative (blood) (01/11/2024 11:10 AM CDT) hCG Serum Qualitative Negative Negative REINA 01/11/2024 11:57 AM CDT [facility] LAB[facility]ATORY Comment:This test is for scr eening purposes. Results should be interpreted along with the clinical picture. Confirmation testing is available if warranted by ordering [id number], HCG Quantitative . Blood STRUCTURE OF RIGHT HAND / Unknown Venipuncture / Unknown 01/11/2024 11:10 AM CDT 01/11/2024 11:15 AM CDT Jeffrey Whalen MD LAB - BLOOD DONYA HERRERA [facility] Organization Address City/State/ZIP Co de Phone Number RH LABORATORY [facility] Acute Care Lab [address] Lab (1st floor, no room number) [place] [address], [facility] * (ABNORMAL) CBC with platelets [...] CDT Jeffrey Whalen MD LAB [facility] Organization Address City/State/ZIP Co de Phone Number LABORATORY [facility] Acute Care Lab [address] [facility] Lab (1st floor, no room number) [place] [address], [facility] * Troponin T, High Sensitivity (01/11/2024 [...] Whalen MD LAB - BLOOD ORDSia HERRERA [facility] Acute Care Lab [address] Lab (1st floor, no room number) [place] [address] * EKG 12 lead (01/11/2024 9:55 AM CDT) Only the most recent of2 resultswithin the time period is included. Systolic Blood Pressure mmHg RADIOLOGY RESULTS Diastolic Blood Pressure mmHg RADIOLOGY RESULTS Ventricular Rate 60 BPM RAD IOLOGY RESULTS Atrial Rate 60 BPM RADIOLOG Y RESULTS TX Interval 146 ms RADIOLOG Y RESULTS QRS Duration 84 ms RADIOLO GY RESULTS QT 382 ms RADIOLOGY RESULTS QTc 382 ms RADIOLOGY RESULTS P [place] 61 degrees RADIOLOGY RESULTS R AXIS 70 degrees RADIOLOGY RESULTS T [place] 67 degrees RADIOLOGY RESULTS Interpretation ECG Sinus rhythm Normal ECG When compared with ECG of 26-DEC-2023 09:56, No significant change was found Unconfirmed report - interpretation of this ECG is computer generated - see medical record for final interpretation Confirmed by - EMERGENCY ROOM, PHYSICIAN ([id number]), editorial manager Saleem Gomez ([id number]) on 01/11/2024 12:31:03 PM RADIOLOGY RESULTS 01/11/2024 [...] MR BRAIN W/O and W CONTRAST LOCATION: [facility] DATE: 01/06/2024 INDICATION: numbness tingling both [...] MR BRAIN W/O and W CONTRAST LOCATION: [facility] DATE: 01/06/2024 INDICATION: numbness tingling both arms and chest, torso. Recheck [id number] and hx Chiari and right parietal abnormality, [...] at the right lateral aspect of the [id number] body. Ebony Cid APRN OIL FIELD ROUSTABOUT IMG MRI ORDERABLES * MR Brain w/o [...] MR BRAIN W/O and W CONTRAST [facility]ATION: [facility] DATE: 01/06/2024 INDICATION: numbness tingling both [...] MR BRAIN W/O and W CONTRAST LOCATION: [facility] DATE: 01/06/2024 INDICATION: numbness tingling both arms and chest, torso. Recheck [id number] and hx Chiari and right parietal abnormality, [...] at the right lateral aspect of the [id number] body. Ebony Cid GARBAGE PICK UP MAN OIL FIELD ROUSTABOUT IMG MRI ORDERABLES * Symptomatic Influenza A/B, RSV, & SARS-CoV2 PCR (COVID-19) Nasopharyngeal (12/26/2023 9:02 AM CDT) Pathologist [facility] Influenza A PCR Negative Negative 12/26/2023 9:50 [...] the Xpert Xpress CoV2/Flu/RSV Assay on the [employer] GeneXpert Instrument. This test should be ordered [...] management. This test was validated by the [facility]. These laboratories are certified under the Clinical Laboratory Improvement Amendments of 1988 (CLIA-88) as qualified to perform high complexity laboratory testing. Chidi Kim MD LAB - MICRO GENER AL ORDERABLES [facility] Acute Care Lab [address] [facility] Lab (1st floor, no room number) [place] [address], [facility] * Group A Streptococcus PCR Throat Swab (12/26/2023 9:02 AM CDT) Group A strep by PCR Not Detected Not Detected 12/26/2023 9:37 AM CDT LABORATORY Swab STRUCTURE OF ANTERIOR PORTION OF NECK / Unknown Non-blood Collection / Unknown 12/26/2023 9:02 AM CDT 12/26/2023 9:09 AM CDT Narrative LABORATORY - 12/26/2023 9:37 AM CDT The Xpert Xpress Strep A test, performed on the [employer], is a rapid, qualitative in vitro [...] MD LAB - MICRO GENER AL ORDERABLES [facility] Acute Care Lab [address] [facility] Lab (1st floor, no room number) [place] [address] * Hepatitis C antibody (12/21/2023 1:39 PM CDT) Only the most recent of2 resultswithin the time period is included. [facility] Hepatitis C Antibody Nonreactive Nonreactive [...] CDT 12/21/2023 1:39 PM CDT Jaret Cortez GARBAGE PICK UP MAN OIL FIELD ROUSTABOUT LAB - BLOOD ORD ERABLES [facility] LABORATORY [facility] [place] [facility] Lab [address] [facility], [address] [place] [address], [facility] * Comprehensive metabolic panel (12/21/2023 1:39 PM CDT) [facility] Sodium 138 135 - 145 mmol/L 12/21/2023 [...] 1:39 PM CDT 12/21/2023 1:39 PM CDT Samuelj Helen Cortez APRN OIL FIELD ROUSTABOUT LAB - BLOOD ORD ERABLES RH LABORATORY [facility] Acute Care Lab [address] [facility] Lab (1st floor, no room number) [place] [address] * XR Chest 2 [...] CNP LAB - URINE ORD ERABLES LABORATORY [facility] Lab [address] [facility] Lab (no room number, 1st floor of clinic) [place] [address], [facility] [phone] * UA with Microscopic reflex to Culture [...] 12/21/2023 12:58 PM CDT LV LABORATORY Specific [place] Urine 1.010 1.003 - 1.035 12/21/2023 12:58 [...] CNP LAB - URINE ORD ERABLES LABORATORY [facility] Lab [address] [facility] (no room number, 1st floor of clinic) [place] [address] [phone] * EKG 12-lead complete w/read - Clinics (12/21/2023) Jaret Cortez APRN, CNP ECG ORDERABLES * US Abdomen Limited (11/24/2023 9:30 AM CDT) Anatomical Region Laterality Modality Abdomen/Pelvis Ultrasound Impressions 11/24/2023 4:03 PM CDT IMPRESSION: ??Fatty liver. Hepatomegaly. No gallstones identified. [facility] ID: [id number] Narrative 11/24/2023 4:03 PM CDT ULTRASOUND ABDOMEN [...] gallstones identified. [facility] ID: [id number] Lauren Claudio PA-C [facility] US ORDERABLES * Hepatitis B surface antigen (11/14/2023 10:43 AM CDT) Hepatitis B Surface Antigen Nonreactive Nonreactive 11/14/2023 8:10 PM CDT U LABORATORY Blood BLOOD SPECIMEN / Unknown Venipuncture / Unknown 11/14/2023 10:43 AM CDT 11/14/2023 10:45 AM CDT Yolande Mora MD LAB - BLOOD ORDERABL ES UU LABORATORY [facility] Core Lab [address] [facility], [address] [place] [address] * (ABNORMAL) UA Macroscopic [...] 11/14/2023 10:13 AM CDT LV LABORATORY Specific [place] Urine 1.010 1.003 - 1.035 11/14/2023 10:13 [...] MD LAB - URINE ORDERABL ES LABORATORY [facility] Lab [address] [facility] Lab (no room number, 1st floor of clinic) [place] [address], [facility] [phone] * Urine Culture Aerobic Bacterial - lab collect (11/14/2023 9:51 AM CDT) Culture <10,000 CFU/mL Mixture of Urogenital Darlene 11/15/2023 10:53 AM CDT [facility] Urine URINE SPECIMEN OBTAINED BY CLEAN CATCH PROCEDURE / Unknown Non-blood Collection / Unknown 11/14/2023 9:51 AM CDT 11/14/2023 10:04 AM CDT Yolande Mora MD LAB - MICRO GENERAL ORDERABLES [facility] IDD LABORATORY [facility] Inf. Diseases Diag. Lab [address] [facility], [address] [place] [address], [facility] * Pap screen reflex to [...] LABS Reflex Testing Yes if ASCUS 09/26/19 22 10:27 AM CDT SPECIALTY LABS Previous Abnormal? No 09/25/2021 10:27 AM CDT SPECIALTY LABS Performing Labs The technical component of this testing was completed at [facility] Laboratory 09/25/2021 10:27 AM CDT SPECIALTY LABS Brushing CERVIX UTERI STRUCTURE / Unknown 09/22/2021 3:14 PM CDT 09/22/2021 3:48 PM CDT Marija MCCORMICK SPECIALTY LABS [facility] Specialty Lab [address] [facility], [address] [place] [address], [facility] [facility] [phone] from Last 3 Months or Most Recently Relevant to Health Maintenance Advance Directives For more information, please contact: [phone] * Full Code (Latest Code Status on File) Date Activated Date Inactivated Comments 01/14/2021 7:36 AM 01/15/2021 6:05 PM All basic and advanced life-sustaining interventions are performed as appropriate Question Answer Comments Code status determined by: Discussion with corona dewitt/ legal decision maker Care Teams Freelance Interpreter/Translator Relationship Specialty Start Date End Date Esha Grimm PA-C [address] [facility] [place] [address] PCP - General Family Medicine 05/04/23 Diana Desir, [facility] [address] [place] [address] Pharmacist Pharmacist 04/17/21 Rain Galaviz PA-C [address] [place] [address] [address] [place] [address] Physician Referral Rn Dermatology 04/28/21 Tavia Wyatt MD [address] [place] [address] ENMA KNUTSON [address] Dermatology 07/14/21 Erica Farrell APRN [facility] [facility] ROU[facility] [address] [place] [address] Nurse Practitioner Cardiovascular Disease 09/09/21 Rich Barrett MD [address] 564135 Physician Ophthalmology 01/21/22 Neil Kent MD [address] [place] [address] 691035 Dermatology 02/24/22 Diana Desir, [facility] [address] [place] [address]81 Assigned MTM Pharmacist 04/07/22 Livan Sharif MD [address] [place] [address] Cardiovascular Disease 05/14/22 Catherine Cm MD 6405 [facility] [address] [place] [address] Cardiovascular Disease 07/21/22 Valery Veronica, PA-C [address] [place] [address] Physician Referral Rn Dermatology 07/21/22 Brea Quinn APRN [employer] [address] [place] [address] Nurse Practitioner Dermatology 09/21/22 Brea Quinn APRN [employer] [facility] [address] [place] [address] Assigned Surgical Provider 10/09/22 [place] [address] [place] [address] Assigned Musculoskeletal Provider 10/09/22 Alfonso Renteria MD 5775 [facility] 200 [place] [address] Assigned Neuroscience Provider 04/02/23 Radha Lomeli APRN OIL FIELD ROUSTABOUT 6405 [facility] [address] [place] [address] Assigned Heart and Vascular Provider 05/28/23 Jelena David OD [address] [facility] [place] [address] MD Ophthalmology 06/15/23 Esha Grimm PA-C [address] [place] [address] Assigned PCP 07/16/23 Valery Veronica PA-C [address] [place] [address] 235935 Physician Referral Rn Dermatology 09/19/23 Rey Tay MD [address] [place] [address] 118075 MD Gastroenterology 09/20/23 Rocky Zepeda DO [address] [place] [address] 328235 Physician Gastroenterology 09/20/23 Philip Dumont MD [address] [place] [address] 863225 Physician Ophthalmology 09/22/23 Meredith Carrera PA-C [address] [place] [address]15 Assigned Gastroenterology Provider 11/01/23 Neil Kent MD [address] [place] [address] 17290 Dermatology 11/02/23 [place] [address] [place] [address] Neurological Surgery 12/26/23
[2024-02-12 05:42] LABS: Anion Gap 9 mEq/L (7-15); Blood Urea Nitrogen* 13 mg/dL (5-24); Calcium* 9.5 mg/dL (8.4-10.6); Carbon Dioxide* 27 mmol/L (20-32); Glucose* 96 mg/dL (60-115)
--- OUTSIDE RECORDS SUMMARY | 2024-02-12 05:42 | XMS_ITS | Encounter Summary ---
Author Organization [facility] Address [address] [place] [address] Care Team Providers Care Software Development Intern Name Role Phone Thang Diana [place] [facility] Unavailable Rain Galaviz PA-C Unavailable [phone] Tavia Wyatt MD Unavailable Unavailable Erica Farrell DEPUTY FIRE CHIEF ALTERATION WORKER Unavailable Rich Barrett MD Unavailable Neil Kent MD Unavailable Diana Desir Stanislav [facility] Unavailable [phone] Livan Sharif MD Unavailable Catherine Cm MD Unavailable + Valery Veronica PA-C Unavailable [phone] Brea Quinn DEPUTY FIRE CHIEF ALTERATION WORKER Unavailable [phone] Brea Quinn DEPUTY FIRE CHIEF ALTERATION WORKER Unavailable [phone] Jose Francisco Johnson MD Unavailable Alfonso Renteria MD Unavailable + [phone] Esha Grimm PA-C Primary Care Provider Radha Lomeli DEPUTY FIRE CHIEF ALTERATION WORKER Unavailable [phone] Jelena David OD Unavailable Esha GrimmC Unavailable [phone] Valery VeronicaC Unavailable [phone] Rey Tay MD Unavailable Rocky Zepeda DO Unavailable Philip Dumont MD Unavailable [phone] Meredith CarreraC Unavailable [phone] Neil Kent MD Unavailable Juan Pablo Emmanuel MD Unavailable [phone] Encounter Details Date Type Department Care Team (Latest Contact Info) Description 01/26/2024 Travel Social History Tobacco Use Types Packs/Day [...] How often do you attend [facility] or jain services? 1 to 4 [...] Answer Date Recorded PHQ-2 Score 0 10/25/2023 [facility] - Occupational Stress Questionnaire Answer Date Recorded [...] exercise at this level? 30 min 03/10/2023 Cashion Depression Scale Answer Date Recorded Cashion Depression Score 5 01/14/2021 Last EPDS Self [...] Description 02/14/2024 12:50 PM CDT Therapy Visit [facility] Services [address] [address] Rustam Medina, PT [facility] [address] [place] [address] 03/06/2024 3:00 PM CDT Office Visit [facility] [place] [address] [facility] [address] [place] [phone] Radha Lomeli, DEPUTY FIRE CHIEF ALTERATION WORKER [address] [place], [place] 897585 03/07/2024 9:00 AM CDT Hospital Encounter [address] [phone] Rocky Zepeda DO 500 [place], [place] 700845 03/07/2024 9:00 AM CDT - 03/07/2024 9:30 AM CDT Surgery [address] [phone] Rocky Zepeda DO 500 [place] [address] Esophagoscopy, gastroscopy, duodenoscopy (EGD), combined 06/21/2024 2:00 PM FIRE CHIEF'S AIDE Office Visit [facility] Neurology [facility] [address] [facility], [address] [place] [address] [place] [address] [place], [place] [phone] Johnny Penn MD 9719 [place] [address] Scheduled Procedures Name Priority Associated Diagnoses Date/Ti ct ESOPHAGOGASTRODUODENOSCOPY Eosinophilic esophagitis Esophageal dysphagia 03/07/2024 9:00 AM CDT documented as of this encounter Visit Diagnoses Not on filedocumented in this encounter Additional Health Concerns Assessment Noted Time PHQ-9 Depression Total Score: 4 06/20/20 23 8:40 AM FIRE CHIEF'S AIDE documented as of this encounter Care Teams Software Development Intern Relationship Specialty Start Date End Date Esha Grimm PA-C [address] [place] [address] PCP - General Family Medicine 05/04/23 Diana Desir, [facility] 3033 [facility] [address] Pharmacist Pharmacist 04/17/21 Rain Galaviz PA-C [address] [place] [address] [address] [place] [address] Physician Inside Sales Coordinator Dermatology 04/28/21 Tavia Wyatt MD [address] [place] [address] [address] [place] [address] Dermatology 07/14/21 Erica Farrell APRN ALTERATION WORKER [address] [place] 774735 Nurse Practitioner Cardiovascular Disease 09/09/21 Rich Barrett MD 516 [facility] [place] [address] Physician Ophthalmology 01/21/22 Neil Kent MD 500 [place] [address] Dermatology 02/24/22 Diana Desir, [facility] 3033 [place], [place] 268326 Assigned [place] Pharmacist 04/07/22 Livan Sharif MD [address] [place], [place] 46[address] Cardiovascular Disease 05/14/22 Catherine Cm MD [address] [place], [place] 788[address] Cardiovascular Disease 07/21/22 Valery Veronica PA-C 909 [place], [place] 706805 Physician Inside Sales Coordinator Dermatology 07/21/22 Brea Quinn APRN ALTERATION WORKER 500 [place], [place] 094465 Nurse Practitioner Dermatology 09/21/22 Brea Quinn APRN ALTERATION WORKER 6401 [facility] [place] [address] Assigned Surgical Provider 10/09/22 [place] [address] [place] [address] Assigned Musculoskeletal Provider 10/09/22 Alfonso Renteria MD [address] [facility] 200 [place], [place] 699806 Assigned Neuroscience Provider 04/02/23 Radha Lomeli, DEPUTY FIRE CHIEF ALTERATION WORKER 6405 [facility] [address] [place], [place] 404335 Assigned Heart and Vascular Provider 05/28/23 Jelena David OD [address] [facility] [place] [address] Ophthalmology 06/15/23 Esha Grimm PA-C [address] [place] [address] Assigned PCP 07/16/23 Valery Veronica PA-C [address] [place] [address] 231295 Physician Inside Sales Coordinator Dermatology 09/19/23 Rey Tay MD [address] [place] [address] 758745 Gastroenterology 09/20/23 Rocky Zepeda DO [address] [place] [address] Physician Gastroenterology 09/20/23 Philip Dumont MD 516 [place] [address] Physician Ophthalmology 09/22/23 Meredith Carrera PA-C [address] [place] [address] Assigned Gastroenterology Provider 11/01/23 Neil Kent MD [address] [address] Dermatology 11/02/23 [place] [address] [place] [address] Neurological Surgery 12/26/23 documented as of this encounter
--- OUTSIDE RECORDS SUMMARY | 2024-02-12 05:42 | XMS_ITS | Encounter Summary ---
Author Organization [place] Address [address] [place] [address] Care Team Providers Care Guard Immigration Name Role Phone Thang Diana [place] [facility] Unavailable Rain Galaviz PA-C Unavailable aTvia Wyatt MD Unavailable Unavailable Erica Farrell ELECTRIC METER REPAIRER APPRENTICE CHEMICAL PLANT TECHNICAL DIRECTOR Unavailable Rich Barrett MD Unavailable Neil Kent MD Unavailable Diana Desir Stanislav [facility] Unavailable [phone] Livan Sharif MD Unavailable Catherine Cm MD Unavailable + Valery Veronica PA-C Unavailable [phone] Brea Quinn ELECTRIC METER REPAIRER APPRENTICE CHEMICAL PLANT TECHNICAL DIRECTOR Unavailable Brea Quinn ELECTRIC METER REPAIRER APPRENTICE CHEMICAL PLANT TECHNICAL DIRECTOR Unavailable [phone] Jose Francisco Johnson MD Unavailable Alfonso Renteria MD Unavailable + [phone] Esha Grimm PA-C Primary Care Provider [phone] Radha Lomeli ELECTRIC METER REPAIRER APPRENTICE CHEMICAL PLANT TECHNICAL DIRECTOR Unavailable [phone] Jelena David OD Unavailable Esha Grimm Adam PA-C Unavailable [phone] Valery VeronicaC Unavailable Rey Tay MD Unavailable Rocky Zepeda Unavailable Philip Dumont MD Unavailable Meredith Carrera-C Unavailable Neil Kent MD Unavailable Juan Pablo Emmanuel MD Unavailable [phone] Reason for Visit * Reason Onset Date Comments Appointment 01/09/2024 Encounter Details Date Type Department Care Team (Late st Contact Info) Description 01/09/2024 Telephone [facility] Neurology [address], [address] [place] [address] [place] [address] [place] [address] Appointment Social History Tobacco Use [...] often do you attend chur ch or episcopal services? 1 to 4 times per year [...] Answer Date Recorded PHQ-2 Score 0 10/25/2023 [facility] Occupat ional [...] exercise at this level? 30 min 03/10/2023 Chesterfield Depression Scale Answer Date Recorded Chesterfield Depression Score 5 01/14/2021 Last EPDS Self [...] * Telephone Encounter - Amanda Ascencio - 01/09/2024 12:01 PM CDT Left voice message to call clinic to move appt with Dr. Emmanuel on 01/22, Tuesday to an earlier time on same day. Offered 8 am, 8.30, 9 or 9.45 on same day. documented in this encounter Plan of Treatment Upcoming Encounters Date Type Department Care Team (Latest Contact Info) Description 02/14/2024 12:50 PM CDT Therapy Visit [facility] [address] [place] [phone] Rustam Medina, PT [facility] [address] [place] [address] 03/06/2024 3:00 PM CDT Office Visit [facility] Heart [address] [place] [address] Lomeli, Radha E, ELECTRIC METER REPAIRER APPRENTICE CHEMICAL PLANT TECHNICAL DIRECTOR [address] [place], [place] 248915 03/07/2024 9:00 AM CDT Hospital Encounter [facility] [place] [address] 5th [place] [phone] Rocky Zepeda DO 500 [place], [place] 149495 03/07/2024 9:00 AM CDT - 03/07/2024 9:30 AM CDT Surgery [facility] OR [address] [phone] Rocky Zepeda DO 500 [place], [place] 384895 Esophagoscopy, gastroscopy, duodenoscopy (EGD), combined 06/21/2024 2:00 PM MEDICAL LAB ASSISTANT Office Visit [facility]rology [facility] [place] [address] [place] [address], [address] [place] [address] [place] [address] [place], [place] [address] Johnny Penn MD [address] [place] 04[address]85 Scheduled Procedures Name Priority Associated Diagnoses Date/Ti wa ESOPHAGOGASTRODUODENOSCOPY Eosinophilic esophagitis Esophageal dysphagia 03/07/2024 9:00 AM CDT documented as of this encounter Visit Diagnoses Not on filedocumented in this encounter Additional Health Concerns Assessment Noted Time PHQ-9 Depression Total Score: 4 06/20/20 23 8:40 AM MEDICAL LAB ASSISTANT documented as of this encounter Care Teams Guard Immigration Relationship Specialty Start Date End Date Esha Grimm PA-C [address] [place] [address] PCP - General Family Medicine 05/04/23 Diana Desir, [facility] [address] [place] [place] [address] Pharmacist Pharmacist 04/17/21 Rain Galaviz PA-C [address] [place] [address] [address] [place] [address] Physician Radiological Equipment Specialist Dermatology 04/28/21 Tavia Wyatt MD [address] [place] [address] [place] [address] Dermatology 07/14/21 Erica Farrell APRN CHEMICAL PLANT TECHNICAL DIRECTOR [address] [place] 314035 Nurse Practitioner Cardiovascular Disease 09/09/21 Rich Barrett MD [address] [place] [address] 058695 Physician Ophthalmology 01/21/22 Neil Kent MD 500 [place], [place] 819435 Dermatology 02/24/22 Diana Desir, [facility] [address] [place] [address] Assigned MTM Pharmacist 04/07/22 Livan Sharif MD [address] [facility] [address] [place] 923345 Cardiovascular Disease 05/14/22 Catherine Cm MD 6405 [facility] [address] [place] [address] Cardiovascular Disease 07/21/22 Valery Veronica, PAUcheC 909 [place], [place] 226945 Physician Radiological Equipment Specialist Dermatology 07/21/22 Brea Quinn APRN CHEMICAL PLANT TECHNICAL DIRECTOR [address] [place] [address] 930855 Nurse Practitioner Dermatology 09/21/22 Brea Quinn APRN CHEMICAL PLANT TECHNICAL DIRECTOR 6401 [place] [address] Assigned Surgical Provider 10/09/22 [place] [address] [place] [address] Assigned Musculoskeletal Provider 10/09/22 Alfonso Renteria MD 5775 [facility] 200 [place], [place] 572416 Assigned Neuroscience Provider 04/02/23 Radha Lomeli APRN CHEMICAL PLANT TECHNICAL DIRECTOR [address] [place] 4118000 [place] 314265 Assigned Heart and Vascular Provider 05/28/23 Jelena David OD [address] [place] [address] MD Ophthalmology 06/15/23 Esha Grimm PA-C [address] [place] [phone] Assigned PCP 07/16/23 Valery Veronica PA-C [address] [place] [address] 312835 Physician Radiological Equipment Specialist Dermatology 09/19/23 Rey Tay MD [address] [place] [address] 783745 MD Gastroenterology 09/20/23 Rocky Zepeda DO [address] [place] [address] 163225 Physician Gastroenterology 09/20/23 Philip Dumont MD [address] [place] [address] 968095 Physician Ophthalmology 09/22/23 Meredith Carrera PA-C [address] [place] [address] 825455 Assigned Gastroenterology Provider 11/01/23 Neil Kent MD [address] [place] [address] Dermatology 11/02/23 [place] [address] [place] [address] Neurological Surgery 12/26/23 documented as of this encounter
--- OUTSIDE RECORDS SUMMARY | 2024-02-12 05:42 | XMS_ITS | Encounter Summary ---
Author Organization [place] Address [address] [place] [address] Care Team Providers Care Paper Bag Maker Name Role Phone Thang Diana [place] [facility] Unavailable Rain Galaviz PA-C Unavailable Tavia Wyatt MD Unavailable Unavailable Erica Farrell MANAGER IT TRAINING PULL OUT OPERATOR Unavailable Rich Barrett MD Unavailable Neil Kent MD Unavailable Diana Desir Stanislav [facility] Unavailable [phone] Livan Sharif MD Unavailable Catherine Cm MD Unavailable + Valery Veronica PA-C Unavailable [phone] Brea Quinn MANAGER IT TRAINING PULL OUT OPERATOR Unavailable [phone] Brea Quinn MANAGER IT TRAINING PULL OUT OPERATOR Unavailable Jose Francisco Johnson MD Unavailable Alfonso Renteria MD Unavailable + [phone] Esha Grimm PA-C Primary Care Provider Radha Lomeli MANAGER IT TRAINING PULL OUT OPERATOR Unavailable [phone] Jelena David OD Unavailable Jesus Grimmyllincoln Medina PA-C Unavailable Valery Veronica-C Unavailable [phone] Rey Tay MD Unavailable DuaneEvansximena STEVENS Unavailable Philip Dumont MD Unavailable [phone] Meredith Carrera PA-C Unavailable [phone] Neil Kent MD Unavailable Juan Pablo Emmanuel MD Unavailable [phone] Encounter Details Date Type Department Care Team (Late st Contact Info) Description 02/01/2024 MyC Medical Advice [facility] Neurology [address], [address] [place] [address] Macy Pinedo, RN Social History Tobacco Use Types Packs/Day [...] Score 0 10/25/2023 [facility] - Occupational Stress Questionnaire Answer [...] exercise at this level? 30 min 03/10/2023 Gilbert Depression Scale Answer Date Recorded Gilbert Depression Score 5 01/14/2021 Last EPDS Self [...] Description 02/14/2024 12:50 PM CDT Therapy Visit [facility] Rehabilitation Services [address] [address] Rustam Medina, PT [facility] [address] [place] [address] 03/06/2024 3:00 PM CDT Office Visit [facility] Heart Clinic [place] [address] [place] [address] [address] [place] [phone] Radha Lomeli APRN PULL OUT OPERATOR [address] [place] [address] 03/07/2024 9:00 AM CDT Hospital Encounter [address] 5th [place] [phone] Rocky Zepeda DO 500 [place] [address] 03/07/2024 9:00 AM CDT - 03/07/2024 9:30 AM CDT Surgery [address] 5th [place] [phone] Rocky Zepeda, DO 500 [place], [place] 462185 Esophagoscopy, gastroscopy, duodenoscopy (EGD), combined 06/21/2024 2:00 PM SYSTEMS TECHNOLOGIST Office Visit [facility] Neurology Clinics [facility] [address] [facility], [address] [place] [address] [place] [address] [place] [address] Johnny Penn MD [address] [place] 7[address]75 Scheduled Procedures Name Priority Associated Diagnoses Date/Ti co ESOPHAGOGASTRODUODENOSCOPY Eosinophilic esophagitis Esophageal dysphagia 03/07/2024 9:00 AM CDT documented as of this encounter Visit Diagnoses Not on filedocumented in this encounter Additional Health Concerns Assessment Noted Time PHQ-9 Depression Total Score: 4 06/20/20 23 8:40 AM SYSTEMS TECHNOLOGIST documented as of this encounter Care Teams Paper Bag Maker Relationship Specialty Start Date End Date Esha Grimm PA-C [address] [place] [address] PCP - General Family Medicine 05/04/23 Diana Desir, [facility] [address] [place] [address] Pharmacist Pharmacist 04/17/21 Rain Galaviz PA-C [address] [place] [address] [address] [place] [id number] Physician Stoner Out Dermatology 04/28/21 Tavia Wyatt MD [address] [place] [address] [address] [place] [address] Dermatology 07/14/21 Erica Farrell APRN PULL OUT OPERATOR [address] [place], [place] 292485 Nurse Practitioner Cardiovascular Disease 09/09/21 Rich Barrett MD 516 [facility] 9A [place], [place] 818645 Physician Ophthalmology 01/21/22 Neil Kent MD 500 [place], [place] 876555 Dermatology 02/24/22 [facility] 3033 [place], [place] 992536 Assigned [place] Pharmacist 04/07/22 Livan Sharif MD [address] [place] [address] Cardiovascular Disease 05/14/22 Catherine Cm MD [address] [facility] [address] [place] [address] Cardiovascular Disease 07/21/22 Valery Veronica, PAUcheC 909 [place], [place] 126565 Physician Stoner Out Dermatology 07/21/22 Brea Quinn APRN PULL OUT OPERATOR 500 [place], [place] 120795 Nurse Practitioner Dermatology 09/21/22 Brea Quinn APRN PULL OUT OPERATOR 6401 [place] [address] Assigned Surgical Provider 10/09/22 [place] [address] [facility] 300 [place] [address] Assigned Musculoskeletal Provider 10/09/22 Alfonso Renteria MD 5775 [facility] 200 [place], [place] 276876 Assigned Neuroscience Provider 04/02/23 Radha Lomeli APRN PULL OUT OPERATOR [address] [address] Assigned Heart and Vascular Provider 05/28/23 Jelena David OD [address] [facility] [place] [address] Ophthalmology 06/15/23 Esha Grimm PA-C [address] [place] [phone] Assigned PCP 07/16/23 Valery Veronica PA-C [address] [place] [address] 047665 Physician Stoner Out Dermatology 09/19/23 Rey Tay MD 9 [place], [place] 430305 Gastroenterology 09/20/23 Rocky Zepeda DO 500 [place], [place] 041075 Physician Gastroenterology 09/20/23 Philip Dumont MD [address] [place] [address] 022115 Physician Ophthalmology 09/22/23 Meredith Carrera PA-C [address] [place] [address] 848165 Assigned Gastroenterology Provider 11/01/23 Neil Kent MD [address] 417140 Dermatology 11/02/23 [place] [address] [place] 663687 Neurological Surgery 12/26/23 documented as of this encounter
--- OUTSIDE RECORDS SUMMARY | 2024-02-12 05:42 | XMS_ITS | Encounter Summary ---
Author Organization [facility] Address [address] [place] [address] Care Team Providers Care Cnc Machine Operator Name Role Phone Thang Diana [place] [facility] Unavailable Rain Galaviz PA-C Unavailable Tavia Wyatt MD Unavailable Unavailable Erica Farrell OUTPATIENT SCHEDULER HOT BOX SPOTTER Unavailable Rich Barrett MD Unavailable Neil Kent MD Unavailable Diana Desir Stanislav [facility] Unavailable [phone] Livan Sharif MD Unavailable Catherine Cm MD Unavailable + Valery Veronica PA-C Unavailable [phone] Brea Quinn OUTPATIENT SCHEDULER HOT BOX SPOTTER Unavailable Brea Quinn OUTPATIENT SCHEDULER HOT BOX SPOTTER Unavailable Jose Francisco Johnson MD Unavailable Alfonso Renteria MD Unavailable [phone] Esha Grimm PA-C Primary Care Provider Radha Lomeli OUTPATIENT SCHEDULER HOT BOX SPOTTER Unavailable [phone] Jelena David OD Unavailable [phone] Esha Grimm PA-C Unavailable [phone] Valery VeronicaC Unavailable Rey Tay MD Unavailable Duane Rocky DO Unavailable Philip Dumont MD Unavailable [phone] Meredith CarreraC Unavailable [phone] Neil Kent MD Unavailable Juan Pablo Emmanuel MD Unavailable Encounter Details Date Type Department Care Team (Late st Contact Info) Description 01/16/2024 Telephone [facility] [id number] [place] [phone] Esha Grimm PA-C [id number] [place] [phone] Social History Tobacco Use Types Packs/Day [...] How often do you attend chur or pentecostalism services? 1 to 4 times [...] Answer Date Recorded PHQ-2 Score 0 10/25/2023 [facility] - [...] exercise at this level? 30 min 03/10/2023 Hamilton Depression Scale Answer Date Recorded Hamilton Depression Score 5 01/14/2021 Last EPDS [...] in an abandoned building, in an overnight alf, or couch-surfing.) Yes 07/14/2023 Are you worried [...] Telephone Encounter - Esha Grimm PA-C - 01/17/2024 3:31 PM CDT Completed letter and available on [employer]. Esha Grimm PA-C on 01/17/2024 at 3:31 PM * Telephone Encounter - America Shahid CMA - 01/17/2024 11:10 AM CDT Pt will print letter from [employer] * Telephone Encounter - America Shahid CMA - 01/16/2024 4:11 PM CDT LM for pt to call back. * Telephone Encounter - Esha Grimm PA-C - 01/16/2024 4:01 PM CDT Can we call patient to see if this letter can be done electronically or if she needs a signed copy for school? I can write this tomorrow and have available at the front worker for orange picker machine operator if needs to be a signed copy. Thanks! Esha Grimm PA-C * Telephone Encounter - America Shahid CMA - 01/16/2024 10:09 AM CDT Pt states she needs a letter stating the ER visits and the dates of the MRI for school. PT has ER follow up on 01/18/2024 but wants letter from PCP instead. Dates needed on the letter are: ER dates 01/07/2024 ([facility]) and 01/11/2024 ([facility]) Ortho dates are 01/05/2024 and 01/06/2024. * Telephone Encounter - Donna Artis - 01/16/2024 9:44 AM CDT General Call Reason for Call: patient called and needs a letter from Esha ALCALA at [facility] today. Patient was in the E/R and had MRI and was also seen at [facility] as well. Chest tightness and racing heartbeat. Orthopedics and MRI. Please contact patient. Thank you. What are your questions or concerns: yes Date of last appointment with provider: Aug 2023 Could we send this information to you in [employer] or would you prefer to receive a phone call?: Patient would prefer a phone call Okay to leave a detailed message?: Yes at Cell number on file: Telephone Information: documented in this encounter Plan of Treatment Upcoming Encounters Date Type Department Care Team (Latest Contact Info) Description 02/14/2024 12:50 PM CDT Therapy Visit [address] [place] [phone] Rustam Medina, PT [facility] [address] [place] [address] 03/06/2024 3:00 PM CDT Office Visit [facility] [place] [address] [facility] [address] [place] [phone] Radha Lomeli, OUTPATIENT SCHEDULER HOT BOX SPOTTER [address] [place] [address] 03/07/2024 9:00 AM CDT Hospital Encounter [address] [place] [phone] Rocky Zepeda DO [address] [place], [place] [phone] 03/07/2024 9:00 AM CDT - 03/07/2024 9:30 AM CDT Surgery [address] [place] [phone] Rocky Zepeda DO [address] [place], [place] [phone] Esophagoscopy, gastroscopy, duodenoscopy (EGD), combined 06/21/2024 2:00 PM RECREATION LEADER Office Visit [facility] [address] [place] [address], [address] [place] [phone] [place] [address] [place], [place] [phone] Johnny Penn MD [address] [place] [address] Scheduled Procedures Name Priority Associated Diagnoses Date/Ti me ESOPHAGOGASTRODUODENOSCOPY Eosinophilic esophagitis Esophageal dysphagia 03/07/2024 9:00 AM CDT documented as of this encounter Visit Diagnoses Not on filedocumented in this encounter Additional Health Concerns Assessment Noted Time PHQ-9 Depression Total Score: 4 06/20/20 23 8:40 AM RECREATION LEADER documented as of this encounter Care Teams Cnc Machine Operator Relationship Specialty Start Date End Date Esha Grimm PA-C [address] [place] [phone] PCP - General Family Medicine 05/04/23 Diana Desir, [facility] [address] [facility] [place] [address] Pharmacist Pharmacist 04/17/21 Rain Galaviz PA-C [address] [place] [address] [address] [place] [address] Physician Diesel Mechanic Dermatology 04/28/21 Tavia Wyatt MD [address] [place] [address] [address] [place] [address] Dermatology 07/14/21 Erica Farrell APRN HOT BOX SPOTTER [address] [facility] [address] [place] [address] Nurse Practitioner Cardiovascular Disease 09/09/21 Rich Barrett MD [address] [facility] [address] [place], [place] [phone] Physician Ophthalmology 01/21/22 Neil Kent MD [address] [place], [place] [address] Dermatology 02/24/22 Diana Desir, [facility] [address] [place], [place] [phone] Assigned MTM Pharmacist 04/07/22 Livan Sharif MD [address] [facility] [address] [facility] [address] [place], [place] [phone] Cardiovascular Disease 05/14/22 Catherine Cm MD [address] [facility] [address] [place], [place] [address] Cardiovascular Disease 07/21/22 Valery Veronica, PAUcheC [address] [place], [place] [address] Physician Diesel Mechanic Dermatology 07/21/22 Brea Quinn APRN HOT BOX SPOTTER [address] [place], [place] [address] Nurse Practitioner Dermatology 09/21/22 Brea Quinn APRN HOT BOX SPOTTER [address] [place] [id number] Assigned Surgical Provider 10/09/22 [place] [address] [facility] [address] [place] [address] Assigned Musculoskeletal Provider 10/09/22 Alfonso Renteria MD [address] [facility] [address] [place], [place] [address] Assigned Neuroscience Provider 04/02/23 Lomeli, Radha E, OUTPATIENT SCHEDULER HOT BOX SPOTTER [address] [place], [place] [address] Assigned Heart and Vascular Provider 05/28/23 Frankie Jelena SONJA Garcia [address] [facility] [address] MD Ophthalmology 06/15/23 Esha Grimm PA-C [address] [place] [phone] Assigned PCP 07/16/23 Valery Veronica PA-C [address] [place] [address] Physician Diesel Mechanic Dermatology 09/19/23 Rey Tay MD [address] [place] [address] Gastroenterology 09/20/23 Rocky Zepeda DO [address] [place] [address] 699285 Physician Gastroenterology 09/20/23 hPilip Dumont MD [address] [place] [address] [phone] Physician Ophthalmology 09/22/23 Meredith Carrera PA-C [address] [place] [phone] Assigned Gastroenterology Provider 11/01/23 Neil Kent MD [address] [address] Dermatology 11/02/23 [place] [address] [address] Neurological Surgery 12/26/23 documented as of this encounter
--- OUTSIDE RECORDS SUMMARY | 2024-02-12 05:42 | XMS_ITS | Encounter Summary ---
Author Organization [place] Address [address] [place] [address] Care Team Providers Care Zinc Plate Grainer Name Role Phone Thang Diana [place] [facility] Unavailable [phone] Rain Galaviz PA-C Unavailable Tavia Wyatt MD Unavailable Unavailable Erica Farrell PULPIT OPERATOR ASSISTANT PROFESSOR OF COMMUNICATION Unavailable Rich Barrett MD Unavailable Neil Kent MD Unavailable Diana Desir Stanislav [facility] Unavailable [phone] Livan Sharif MD Unavailable Catherine Cm MD Unavailable + Valery Veronica PA-C Unavailable [phone] Brea Quinn PULPIT OPERATOR ASSISTANT PROFESSOR OF COMMUNICATION Unavailable Brea Quinn PULPIT OPERATOR ASSISTANT PROFESSOR OF COMMUNICATION Unavailable [phone] Jose Francisco Johnson MD Unavailable Alfonso Renteria MD Unavailable + [phone] Esha Grimm PA-C Primary Care Provider Radha Lomeli PULPIT OPERATOR ASSISTANT PROFESSOR OF COMMUNICATION Unavailable [phone] Jelena David OD Unavailable Jesus Grimmyllincoln Medina PA-C Unavailable [phone] Valery Veronica-C Unavailable Rey Tay MD Unavailable Duane Rocky DO Unavailable Philip Dumont MD Unavailable [phone] Meredith Carrera PA-C Unavailable Neil Kent MD Unavailable Juan Pablo Emmanuel MD Unavailable Reason for Visit * Reason Comments Shortness of Breath Encounter Details Date Type Department Care Team (Late st Contact Info) Description 01/11/2024 9:53 AM CDT - 01/11/2024 12:38 PM CDT Emergency [facility] [address] [place] [phone] Jeffrey Whalen MD [facility] [address] [place] [address] Dyspnea, unspecified type Discharge Disposition: Left Without Being Seen Social [...] you attend [facility] or mandaeism services? 1 to 4 times per year 03/10/2023 Do you belong to any clubs o r organizations such as anglican groups, unions, fraternal or athletic groups, [...] Answer Date Recorded PHQ-2 Score 0 10/25/2023 [facility] of Occupat ional Health - Occupational Stress [...] exercise at this level? 30 min 03/10/2023 Hamer Depression Scale Answer Date Recorded Hamer Depression Score 5 01/14/2021 Last EPDS Self [...] Sign Reading Time Taken Comments Blood Pressure 123/68 01/11/2024 9:51 AM CDT Pulse 76 01/11/2024 9:51 AM CDT Temperature 36.6 ??C (97.9 ??F) 01/11/2024 9:51 AM CD T Respiratory Rate 16 01/11/2024 9:51 AM CDT Oxygen Saturation 98% 01/11/2024 9:51 AM CDT Inhaled Oxygen Concentration - - Weight 85.7 kg (188 lb 15 oz) 01/11/2024 9:52 AM CDT Height - - Body Mass Index 30.49 01/05/2024 2:25 PM CDT documented in this encounter Discharge Instructions * Attachments The following attachments cannot be sent through Care Everywhere. * SOB (Shortness of Breath) (Dominican) documented in this encounter Medications at Time [...] as of this encounter ED Notes * Juan Pablo, Buffy Delgadillo RN - 01/11/2024 12:37 PM CDT Pt left without discharge instructions * Buffy Almeida RN - 01/11/2024 12:11 PM CDT Attempted to reassess pt not in lobby * Lauren Rodgers RN - 01/11/2024 9:47 AM CDT Pt reports intermittent chest tightness and shortness of breath over the last few weeks (states shehas been seen for this several times). Symptoms have been consistent today since she woke up about 8:30. Pt states that she has a family hx of blood clots. Had a cardiac ablation for SVT 2 years ago.Pt has a mirena IUD, but is wondering if she is due to nausea. * Jeffrey Whalen MD - 01/11/2024 9:41 AM CDT Emergency Department Note History of Present Illness Chief Complaint Shortness of Breath HPI Kim Johnson is a 23 year old female with history of SVT, heart ablation, and asthma who presentsto the ED for evaluation of shortness of breath.She reports intermittent shortness of breath and chest tightness for the past few weeks but had worsening of both this morning at 0830. She describes the chest tightness as heavy weight on her chest. Patient is a smoker. She called her doctor and was told to come in ED for further imaging. Family history of blood clots, strokes and heart attacks. She had heart ablations and SVT. Patient has an Mirena IUD but has a concern for . Independent Historian None Review of External Notes None Past Medical History Medical History and Problem List Anxiety Chronic kidney disease Depressive disorder GERD Psoriasis Seizure SVT Kidney stones KALYN Asthma Tobacco abuse Iron deficiency anemia UTI Medications Ativan Prilosec Paxil Metoprolol succinate Ferrous sulfate Tessalon Lamictal Keppra Robaxin Naprosyn Zoloft Zanaflex Inderal Surgical History EP ablation SVT EGD x2 Kidney surgery Physical Exam Patient Vitals for the past 24 hrs: BP Temp Temp src Pulse Resp SpO2 Weight 01/11/24 0952 -- -- -- -- -- -- 85.7 kg (188 lb 15 oz) 01/11/24 0951 123/68 97.9 ??F (36.6 ??C) Temporal 76 16 98 % -- Physical Exam HENT: Head: Normocephalic. Cardiovascular: Rate and Rhythm: Normal rate and regular rhythm. Pulmonary: Effort: Pulmonary effort is normal. Skin: Capillary Refill: Capillary refill takes less than 2 seconds. Neurological: General: No focal deficit present. Mental Status: She is alert. Psychiatric: Mood and Affect: Mood normal. Diagnostics Lab Results Labs Ordered and Resulted from Time of ED Arrival to Time of ED Departure BASIC METABOLIC PANEL - Abnormal Result Value Sodium 137 Potassium 4.2 Chloride 103 Carbon Dioxide (CO2) 21 (*) Anion Gap 13 Urea Nitrogen 14.8 Creatinine 0.68 GFR Estimate >90 Calcium 8.7 Glucose 92 CBC WITH PLATELETS AND DIFFERENTIAL - Abnormal WBC Count 4.6 RBC Count 4.50 Hemoglobin 11.8 Hematocrit 37.6 MCV 84 MCH 26.2 (*) MCHC 31.4 (*) RDW 12.6 Platelet Count 234 % Neutrophils 52 % Lymphocytes 37 % Monocytes 5 % Eosinophils 5 % Basophils 0 % Immature Granulocytes 0 NRBCs per 100 WBC 0 Absolute Neutrophils 2.4 Absolute Lymphocytes 1.7 Absolute Monocytes 0.3 Absolute Eosinophils 0.3 Absolute Basophils 0.0 Absolute Immature Granulocytes 0.0 Absolute NRBCs 0.0 D DIMER QUANTITATIVE - Normal D-Dimer Quantitative <0.27 TROPONIN T, HIGH SENSITIVITY - Normal Troponin T, High Sensitivity <6 HCG QUALITATIVE - Normal hCG Serum Qualitative Negative EKG ECG taken at 0955, ECG read at 0958 Normal sinus rhythm Rate 60 bpm. OK interval 146 ms. QRS duration 84 ms. QT/QTc 382/382 ms. P-R-T axes 61 70 67. Independent Interpretation None ED Course Medications Administered Medications - No data to display Procedures Procedures Discussion of Management None Optional/Additional Documentation None ED Course ED Course as of 01/11/24 1224 TueJan 11, 2024 0959 I obtained history and examined the patient as noted above. 1223 The patient has eloped. Medical Decision Making / Diagnosis [facility] Diagnoses: None MIPS None MDM Patient presents with described shortness of breath. Patient has a normal respiratory rate and normal oxygen saturation normal heart rate. In review of her chart patient is on a care plan as patient's visit the emergency room multiple times for similar complaints had multiple evaluations and reviewof her lab test she has had at least 6 D-dimers all of which have been negative. Patient is not at risk for PE other than her describing her family having blood clots. She herself has never had them.She is well-appearing with a normal respiratory rate. I did offer a recurrent screening D-dimer forassessment for PE this was performed and negative when asked to return the patient from the waitingroom to discuss her lab results patient had eloped from the emergency department. Disposition The patient has eloped. ICD-10 Codes: ICD-10-CM 1. Dyspnea, unspecified type R06.00 Discharge Medications New Prescriptions No medications on file Scribe Disclosure: Maria Fernanda Denis, am serving as a scribe at 9:57 AM on 01/11/2024 to document services personally performed by Jeffrey Whalen MD based on my observations and the provider's statements to me. Jeffrey Whalen MD 01/11/24 1330 documented in this encounter Plan of Treatment Upcoming Encounters Date Type Department Care Team (Latest Contact Info) Description 02/14/2024 12:50 PM CDT Therapy Visit [address] [phone] Rustam Medina, PT [facility] [id number] [place] [address] 03/06/2024 3:00 PM CDT Office Visit [facility] [place] [address] [facility] [address] [place] [phone] Radha Lomeli, A[place]ENE ASSISTANT PROFESSOR OF COMMUNICATION [address] [place] [address] 03/07/2024 9:00 AM CDT Hospital Encounter [facility] [address] [facility] [address] [place] [phone] Rocky Zepeda, [address] [place], [place] [address] 03/07/2024 9:00 AM CDT - 03/07/2024 9:30 AM CDT Surgery [facility] [address] [facility] [address] [place] [phone] Rocky Zepeda, DO [address] [place], [place] [address] Esophagoscopy, gastroscopy, duodenoscopy (EGD), combined 06/21/2024 2:00 PM BYPRODUCTS MAKER Office Visit [facility] [place] [address] [place] [address], [address] [place] [phone] [place] [address] [place], [place] 6[address] Johnny Penn MD [address] [facility] [place], [place] 4[address] Scheduled Procedures Name Priority Associated Diagnoses Date/Ti nm ESOPHAGOGASTRODUODENOSCOPY Eosinophilic esophagitis Esophageal dysphagia 03/07/2024 9:00 AM CDT documented as of this encounter Procedures Procedure Name Priority Date/Time Associated Diagnosis Comments HCG QUALITATIVE STAT 01/11/2024 11:10 AM CDT CBC WITH PLATELETS AND DIFFERENTIAL STAT 01/11/2024 10:30 AM CDT TROPONIN T, HIGH SENSITIVITY STAT 01/11/2024 10:30 AM CDT CBC WITH PLATELETS & DIFFERENTIAL STAT 01/11/2024 10:30 AM CDT D DIMER QUANTITATIVE STAT 01/11/2024 10:30 AM CDT BASIC METABOLIC PANEL STAT 01/11/2024 10:30 AM CDT EKG 12-LEAD, TRACING ONLY STAT 01/11/2024 9:55 AM CDT documented in this encounter Results * HCG QUALitative (blood) (01/11/2024 11:10 AM CDT) hCG Serum Qualitative Negative Negative REINA 01/11/2024 11:57 AM CDT [facility] Comment:This test is for scr eening purposes. Results should be interpreted along with the clinical picture. Confirmation testing is available if warranted by ordering [id number], HCG Quantitative . Blood STRUCTURE OF RIGHT HAND / Unknown Venipuncture / Unknown 01/11/2024 11:10 AM CDT 01/11/2024 11:15 AM CDT Jeffrey Whalen MD LAB - BLOOD DONYA HERRERA [facility] Organization Address City/State/ZIP Co de Phone Number [facility] [address] [facility] Lab (1st floor, no room number) [place] [address] * (ABNORMAL) CBC with platelets and differential (01/11/2024 10:30 AM CDT) WBC Count 4.6 4.0 - 11.0 10e3/uL [...] Whalen MD LAB - BLOOD DONYA HERRERA Performing Organization Address [facility]/ZIP Co de Phone Number LABORATORY [facility] [address] Lab (1st floor, no room number) [place] [phone] * Troponin T, High Sensitivity (01/11/2024 10:30 AM CDT) Troponin T, High Sensitivity <6 <=14 ng/L 01/11/2024 11:07 AM CDT LABORATORY Comment: Either a High Sensitivity Troponin [...] Whalen MD LAB - BLOOD DONYA HERRERA Performing Organization Address [facility]/ZIP Co de Phone Number LABORATORY [facility] [address] Lab (1st floor, no room number) [place] [address] * (ABNORMAL) Basic metabolic panel (01/11/2024 10:30 AM CDT) Sodium 137 135 - 145 mmol/L 01/11/2024 11:07 AM CDT LABORATORY Potassium 4.2 3.4 - 5.3 mmol/L 01/11/2024 11:07 AM CDT LABORATORY Chloride 103 98 - 107 mmol/L 01/11/2024 11:07 AM CDT LABORATORY Carbon Dioxide (CO2) 21(L) 22 - 29 mmol/L 01/11/2024 11:07 AM CDT [facility] Anion Gap 13 7 - 15 mmol/L 01/11/2024 11:07 AM CDT LABORATORY Urea Nitrogen 14.8 6.0 - 20.0 mg/dL 01/11/2024 11:07 AM CDT LABORATORY Creatinine 0.68 0.51 - 0.95 mg/dL 01/11/2024 11:07 AM CDT [facility] GFR Estimate >90 >60 mL/min/1.7 3m2 01/11/2024 11:07 AM CDT [facility] Comment:eGFR calculated us2020 CKD-EPI equation. Calcium 8.7 8.6 - 10.0 mg/dL 01/11/2024 11:07 AM CDT LABORATORY Glucose 92 70 - 99 mg/dL 01/11/2024 11:07 AM CDT LABORATORY Blood STRUCTURE OF RIGHT UPPER LIMB / Unknown Venipuncture / Unknown 01/11/2024 10:30 AM CDT 01/11/2024 10:39 AM CDT Jeffrey Whalen MD LAB - BLOOD DONYA HERRERA LABORATORY [facility] [address] [facility] Lab (1st floor, no room number) [place] [address] * D dimer quantitative (01/11/2024 10:30 AM CDT) D-Dimer Quantitative <0.27 0.00 - 0.50 ug/mL FEU 01/11/2024 10:59 AM CDT [facility] Blood STRUCTURE OF RIGHT UPPER LIMB / Unknown Venipuncture / Unknown 01/11/2024 10:30 AM CDT 01/11/2024 10:39 AM CDT Narrative [facility] - 01/11/2024 10:59 AM CDT This D-dimer assay is intended for use in conjunction with a clinical pretest probability assessment model to exclude pulmonary embolism (PE) and deep venous thrombosis (DVT) in outpatients suspected of PE or DVT. The cut-off value is 0.50 ug/mL FEU. Jeffrey Whalen MD LAB - BLOOD DONYA HERRERA [facility] [address] [facility] Lab (1st floor, no room number) [place] [address] * EKG 12 lead (01/11/2024 9:55 AM CDT) Systolic Blood Pressure mmHg RADIOLOGY RESULTS Diastolic Blood Pressure mmHg RADIOLOGY RESULTS Ventricular Rate 60 BPM RAD IOLOGY RESULTS Atrial Rate 60 BPM RADIOLOG Y RESULTS OK Interval 146 ms RADIOLOG Y RESULTS QRS Duration 84 ms RADIOLO GY RESULTS QT 382 ms RADIOLOGY RESULTS QTc 382 ms RADIOLOGY RESULTS P [place] 61 degrees RADIOLOGY RESULTS R AXIS 70 degrees RADIOLOGY RESULTS T [place] 67 degrees RADIOLOGY RESULTS Interpretation ECG Sinus rhythm Normal ECG When compared with ECG of 26-DEC-2023 09:56, No significant change was found Unconfirmed report - interpretation of this ECG is computer generated - see medical record for final interpretation Confirmed by - EMERGENCY ROOM, PHYSICIAN ([id number]), pictures editor aSleem Gomez ([id number]) on 01/11/2024 12:31:03 PM RADIOLOGY RESULTS 01/11/2024 9:55 AM CDT 01/11/2024 12:31 PM CDT Jeffrey Whalen MD ECG ORDERABLES RADIOLOGY RESULTS documented in this encounter Visit Diagnoses Diagnosis Dyspnea, unspecified type Eosinophilic esophagitis Esophageal dysphagia Dysphagia, pharyngoesophageal phase documented in this encounter Additional Health Concerns Assessment Noted Time PHQ-9 Depression Total Score: 4 06/20/20 23 8:40 AM BYPRODUCTS MAKER documented as of this encounter Care Teams Zinc Plate Grainer Relationship Specialty Start Date End Date Esha Grimm PA-C [address] [place] [address] PCP - General Family Medicine 05/04/23 Diana Desir [facility] [address] [facility] [place] [address] Pharmacist Pharmacist 04/17/21 Rain Galaviz PA-C [address] [place] [address] [address] [place] [address] Physician Ship Surveyor Dermatology 04/28/21 Tavia Wyatt MD [address] [place] [address] [place] [address] Dermatology 07/14/21 Erica Farrell APRN ASSISTANT PROFESSOR OF COMMUNICATION [address] [place] [address] Nurse Practitioner Cardiovascular Disease 09/09/21 Rich Barrett MD [address] [address]25[address] Physician Ophthalmology 01/21/22 Neil Kent MD 500 [place], [place] [address] Dermatology 02/24/22 Diana Desir, [facility] [address] [place] [address] Assigned MTM Pharmacist 04/07/22 Livan Sharif MD [address] [place] [address] Cardiovascular Disease 05/14/22 Catherine Cm MD [address] [place] [address] Cardiovascular Disease 07/21/22 Valery Veronica PA-C 9[address] [place] [address] Physician Ship Surveyor Dermatology 07/21/22 Brea Quinn APRN ASSISTANT PROFESSOR OF COMMUNICATION 500 [place] [address] Nurse Practitioner Dermatology 09/21/22 Brea Quinn APRN ASSISTANT PROFESSOR OF COMMUNICATION [address] [place], [place] [address]102 Assigned Surgical Provider 10/09/22 [place] [address] [facility] [address] [place] [address] Assigned Musculoskeletal Provider 10/09/22 Alfonso Renteria MD [address] [facility] [address] [place], [place] [address] Assigned Neuroscience Provider 04/02/23 Radha Lomeli APRN ASSISTANT PROFESSOR OF COMMUNICATION [address] [facility] [address] [place], [place] [address] Assigned Heart and Vascular Provider 05/28/23 Jelena David OD [address] [place] [address] Ophthalmology 06/15/23 Esha Grimm PA-C [address] [place] [address] Assigned PCP 07/16/23 Valery Veronica PA-C [address] [place] [address] Physician Ship Surveyor Dermatology 09/19/23 Rey Tay MD [address] [place] [address] MD Gastroenterology 09/20/23 Rocky Zepeda DO [address] [place] [address] Physician Gastroenterology 09/20/23 Philip Dumont MD [address] [place] [address] Physician Ophthalmology 09/22/23 Meredith Carrera, PALOMAC [address] [place] [address] Assigned Gastroenterology Provider 11/01/23 Neil Kent MD [address] [place] [address] Dermatology 11/02/23 [place] [address] [place], [place] 0927[address] Neurological Surgery 12/26/23 documented as of this encounter
--- OUTSIDE RECORDS SUMMARY | 2024-02-12 05:42 | XMS_ITS | Encounter Summary ---
Author Organization [place] Address [address] [place] [address] Care Team Providers Care Instructor Weaving Name Role Phone Thang Diana [place] [facility] Unavailable [phone] Rain Galaviz PA-C Unavailable [phone] Tavia Wyatt MD Unavailable Unavailable Erica Farrell MAILER APPRENTICE FIBERGLASS BONDING MACHINE TENDER Unavailable Rich Barrett MD Unavailable Neil Kent MD Unavailable Diana Desir Stanislav [facility] Unavailable [phone] Livan Sharif MD Unavailable Catherine Cm MD Unavailable + Valery Veronica PA-C Unavailable [phone] Brea Quinn MAILER APPRENTICE FIBERGLASS BONDING MACHINE TENDER Unavailable [phone] Brea Quinn MAILER APPRENTICE FIBERGLASS BONDING MACHINE TENDER Unavailable Jose Francisco Johnson MD Unavailable Alfonso Renteria MD Unavailable [phone] Esha Grimm PA-C Primary Care Provider Radha Lomeli MAILER APPRENTICE FIBERGLASS BONDING MACHINE TENDER Unavailable [phone] Jelena David OD Unavailable Esha GrimmC Unavailable [phone] Valery VeronicaC Unavailable [phone] Rey Tay MD Unavailable Rocky Zepeda DO Unavailable Philip Dumont MD Unavailable [phone] Meredith CarreraC Unavailable [phone] Neil Kent MD Unavailable Juan Pablo Emmanuel MD Unavailable [phone] Encounter Details Date Type Department Care Team (Latest Contact Info) Description 01/22/2024 Travel Social History Tobacco Use Types Packs/Day [...] week 03/10/2023 How often do you attend [facility] or zoroastrianism services? 1 to 4 [...] Answer Date Recorded PHQ-2 Score 0 10/25/2023 [facility] of Occupat ional [facility] - Occupational Stress Questionnaire Answer Date [...] exercise at this level? 30 min 03/10/2023 [place] Depression Scale Answer Date Recorded [place] Depression Score 5 01/14/2021 Last EPDS Self [...] Description 02/14/2024 12:50 PM CDT Therapy Visit [place] [facility] [address] [address] Rustam Medina, PT [facility] [address] [place] [address] 03/06/2024 3:00 PM CDT Office Visit [facility] [place] [address] [facility] [address] [place] [phone] Radha Lomeli, MAILER APPRENTICE FIBERGLASS BONDING MACHINE TENDER [address] [place], [place] [address] 03/07/2024 9:00 AM CDT Hospital Encounter [address] [phone] Rocky Zepeda DO 500 [place], [place] [address] 03/07/2024 9:00 AM CDT - 03/07/2024 9:30 AM CDT Surgery [address] [phone] Rocky Zepeda DO 500 [place] [address] Esophagoscopy, gastroscopy, duodenoscopy (EGD), combined 06/21/2024 2:00 PM DATA CAPTURE SPECIALIST Office Visit [facility] Neurology [facility] [address] [facility], [address] [place] [address] [place] [address] [place], [place] [phone] Johnny Penn MD 1076 [place] [address] Scheduled Procedures Name Priority Associated Diagnoses Date/Ti ny ESOPHAGOGASTRODUODENOSCOPY Eosinophilic esophagitis Esophageal dysphagia 03/07/2024 9:00 AM CDT documented as of this encounter Visit Diagnoses Not on filedocumented in this encounter Additional Health Concerns Assessment Noted Time PHQ-9 Depression Total Score: 4 06/20/20 23 8:40 AM DATA CAPTURE SPECIALIST documented as of this encounter Care Teams Instructor Weaving Relationship Specialty Start Date End Date Esha Grimm PA-C [address] [place] [phone] PCP - General Family Medicine 05/04/23 Diana Desir, [facility] [address] [facility] [place] [address] Pharmacist Pharmacist 04/17/21 Rain Galaviz PA-C [address] [place] [address] [address] [place] [address] Physician Fresh Work Inspector Dermatology 04/28/21 Tavia Wyatt MD [address] [place] [address] [address] [place] [address] Dermatology 07/14/21 Erica Farrell APRN FIBERGLASS BONDING MACHINE TENDER [address] [place] [address] Nurse Practitioner Cardiovascular Disease 09/09/21 Rich Barrett MD [address] [facility] [address] [place] [address] Physician Ophthalmology 01/21/22 Neil Kent MD 500 [place] [address] Dermatology 02/24/22 Diana Desir, [facility] [address] [place], [place] [address] Assigned [place] Pharmacist 04/07/22 Livan Sharif MD [address] [place], [place] [address] Cardiovascular Disease 05/14/22 Catherine Cm MD [address] [place], [place] [address] Cardiovascular Disease 07/21/22 Valery Veronica PA-C 9[address] [place], [place] [address] Physician Fresh Work Inspector Dermatology 07/21/22 Brea Quinn APRN FIBERGLASS BONDING MACHINE TENDER 500 [place], [place] [address] Nurse Practitioner Dermatology 09/21/22 Brea Quinn APRN FIBERGLASS BONDING MACHINE TENDER [address] [facility] [place] [address] Assigned Surgical Provider 10/09/22 [place] [address] [place] [address] Assigned Musculoskeletal Provider 10/09/22 Alfonso Renteria MD [address] [facility] 200 [place], [place] 27[address] Assigned Neuroscience Provider 04/02/23 Radha Lomeli, MAILER APPRENTICE FIBERGLASS BONDING MACHINE TENDER [address] [facility] [address] [place], [place] [address] Assigned Heart and Vascular Provider 05/28/23 Jelena David OD [address] [facility] [place] [address] Ophthalmology 06/15/23 Esha Grimm PA-C [address] [place] [phone] Assigned PCP 07/16/23 Valery Veronica PA-C [address] [place] [address] 3845[address] Physician Fresh Work Inspector Dermatology 09/19/23 Rey Tay MD [address] [place] [address]158[address] Gastroenterology 09/20/23 Rocky Zepeda DO [address] [place] [address] Physician Gastroenterology 09/20/23 Philip Dumont MD 516 [place] [address] Physician Ophthalmology 09/22/23 Meredith Carrera PA-C [address] [place] [address] Assigned Gastroenterology Provider 11/01/23 Neil Kent MD [address] [address] Dermatology 11/02/23 [place] [address] [place] [address] Neurological Surgery 12/26/23 documented as of this encounter
--- OUTSIDE RECORDS SUMMARY | 2024-02-12 05:42 | XMS_ITS | Encounter Summary ---
Author Organization [place] Address [address] [place] [address] Care Team Providers Care Battery Charger Name Role Phone Thang Diana [place] [facility] Unavailable Rain Galaviz PA-C Unavailable Tavia Wyatt MD Unavailable Unavailable Erica Farrell SEWAGE PLANT ATTENDANT PUBLIC SAFETY DIRECTOR Unavailable Rich Barrett MD Unavailable Neil Kent MD Unavailable Diana Desir Stanislav [facility] Unavailable [phone] Livan Sharif MD Unavailable Catherine Cm MD Unavailable + Valery Veronica PA-C Unavailable [phone] Brea Quinn SEWAGE PLANT ATTENDANT PUBLIC SAFETY DIRECTOR Unavailable Brea Quinn SEWAGE PLANT ATTENDANT PUBLIC SAFETY DIRECTOR Unavailable [phone] Jose Francisco Johnson MD Unavailable Alfonso Renteria MD Unavailable + [phone] Esha Grimm PA-C Primary Care Provider [phone] Radha Lomeli SEWAGE PLANT ATTENDANT PUBLIC SAFETY DIRECTOR Unavailable [phone] Jelena David OD Unavailable Wicho Grimmlincoln Medina PA-C Unavailable Valery Veronica PA-C Unavailable Rey Tay MD Unavailable ZepedaRocky Unavailable Philip Dumont MD Unavailable [phone] Meredith Carrera PA-C Unavailable Neil Kent MD Unavailable Juan Pablo Emmanuel MD Unavailable Reason for Visit * Rehab Therapy Physical Therapy (Priority: 1-2 Weeks) - Pending Review Specialty Diagnoses / Procedures Referred By Qian t Referred To Contact Diagnoses Chiari malformation type I (H) Neck pain Ebony Cid APRN PUBLIC SAFETY DIRECTOR [address] [place] [address] Referral ID Status Reason Start Date Expiration Date V isits Requested Visits Authorized [id number] Pending Review 01/05/2024 01/04/2025 1 1 Encounter Details Date Type Department Care Team (Latest Contact Info) Description 01/26/2024 12:50 PM CDT Therapy Visit [address] [phone] Ebony Cid APRN [facility] [address] [place] [address] Rustam Medina, PT [facility] [id number] [place] [address] Chiari malformation type I (H); Neck pain Social History Tobacco Use Types [...] Answer Date Recorded PHQ-2 Score 0 10/25/2023 [facility] Occupational Stress Questionnaire Answer Date [...] exercise at this level? 30 min 03/10/2023 [place] Depression Scale Answer Date Recorded [place] Depression Score 5 01/14/2021 Last EPDS Self [...] as of this encounter Progress Notes * Rustam Medina, PT - 01/26/2024 12:50 PM CDT PHYSICAL THERAPY EVALUATION Type of Visit: Evaluation Subjective Pt describes daily neck pain and tension in her neck. Ongoing for about 6 months. Also describes intermittent numbness and weakness of the left arm and occasionally the right UE. Began insidiously about 6 months ago. Also has daily FLORES's for the last 2 months. Also reports intermittent mid to low back pain that has been ongoing for about 2 months. Recent MRI shows a Type 1 Chiari malformation. Shew a Neurosurgeon in December who referred her to PT and told her that it was mild and did not represent a surgical situation. Presenting condition or subjective complaint: upper back and neck pain accompained with random tingling and numbness in arms and sometimes chest Date of onset: 01/05/24 ( order) Relevant medical history: Dates & types of surgery: Prior diagnostic imaging/testing results: MRI Prior therapy history for the same diagnosis, illness or injury: No Prior Level of Function Transfers: Independent Ambulation: Independent ADL: Independent IADL: Living Environment Social support: Alone Type of home: Apartment/condo Stairs to enter the home: Yes Ramp: No Stairs inside the home: No Help at home: None Equipment owned: 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 [employer] Hobbies/Interests: Patient goals for therapy: less pain Pain assessment: See objective evaluation for additional pain details Objective LUMBAR SPINE EVALUATION PAIN: Pain Level at Rest: 1/10 Pain Level with Use: 810 Pain Location: Bilat lower thoracic to upper lumbar spine Pain Quality: Aching, Sharp, and Stabbing Pain is Exacerbated By: lying supine with legs straight, lifting, bending, sitting INTEGUMENTARY (edema, incisions): WNL POSTURE: Sitting Posture: Rounded shoulders, Forward head, Thoracic kyphosis increased GAIT: Weightbearing Status: WBAT Assistive Device(s): None Gait Deviations: WNL BALANCE/PROPRIOCEPTION: WEIGHTBEARING ALIGNMENT: NON-WEIGHTBEARING ALIGNMENT: ROM: Full active trunk ROM. Repeated flex in standing had no effect on back pain; Repeated ext in lying produced back pain, no worse. PELVIC/SI SCREEN: STRENGTH: weak abdominals MYOTOMES: WNL DTR???S: CORD SIGNS: DERMATOMES: NEURAL TENSION: Lumbar WNL FLEXIBILITY: LUMBAR/HIP Special Tests: PELVIS/SI SPECIAL TESTS: FUNCTIONAL TESTS: PALPATION: WNL SPINAL SEGMENTAL CONCLUSIONS: CERVICAL SPINE EVALUATION PAIN: Pain Level at Rest: 4/10 Pain Level with Use: 8/10 Pain Location: bilat N/UT Pain is Exacerbated By: prolonged sitting, lifting INTEGUMENTARY (edema, incisions): WNL POSTURE: see above GAIT: Weightbearing Status: Assistive Device(s): Gait Deviations: BALANCE/PROPRIOCEPTION: WEIGHTBEARING ALIGNMENT: ROM: (Degrees) Left AROM Right AROM Cervical Flexion Full with mild neck pain Cervical Extension Full with mild neck pain Cervical Side bend Full Full Cervical Rotation Full Full Cervical Protrusion Full Cervical Retraction Mild loss with neck pain Thoracic Flexion Thoracic Extension Thoracic Rotation Left AROM Left PROM Right AROM Right PROM Shoulder Flexion Shoulder Extension Shoulder Abduction Shoulder Adduction Shoulder IR Shoulder ER Shoulder Horiz Abduction Shoulder Horiz Adduction Pain: End Feel: MYOTOMES: WNL DTR???S: WNL CORD SIGNS: DERMATOMES: WNL NEURAL TENSION: Cervical WNL FLEXIBILITY: SPECIAL TESTS: Left Right Alar Ligament Negative Cervical Flexion-Rotation Cervical Rot/Lateral Flex Compression Negative Negative Distraction Spurling???s Thoracic Outlet Screen (Hailey, Vesta) Transverse Ligament Vertebral Artery Cotton Roll Test Craniocervical Flexor Endurance Test Mannheimer Test PALPATION: mild hypertonicity of the SO's, bilat UT SPINAL SEGMENTAL CONCLUSIONS: Assessment & Plan CLINICAL IMPRESSIONS Medical Diagnosis: Chiari malformation type I (H) Neck pain Treatment Diagnosis: Neck pain with bilat UE sxs and mid to low back pain Impression/Assessment: Patient is a 23 year old female with neck and back complaints. The followingsignificant findings have been identified: Pain and Decreased strength. 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 Clinical Decision Making (Complexity): Clinical Presentation: Stable/Uncomplicated Clinical Presentation Rationale: based on medical and personal factors listed in PT evaluation Clinical Decision Making (Complexity): Low complexity PLAN OF CARE Treatment Interventions: Modalities: E-stim, Ultrasound [facility] Goals PT Goal 1 Goal Identifier: Lifting Goal Description: Ability to lift for home child care provider and housework without neck or back pain Target Date: 03/15/24 Frequency of Treatment: 1x/week Duration of Treatment: 8 weeks Recommended Referrals to Other Professionals: Education Assessment: Risks and benefits of evaluation/treatment have been explained. Patient/Family/caregiver agrees with Plan of Care. Evaluation Time: PT Travon Munguia Minutes ([id number]): 20 Signing Clinician: Rustam Medina, PT [facility] OUTPATIENT PHYSICAL THERAPY PLAN OF TREATMENT FOR OUTPATIENT REHABILITATION Patient's Last Name, First Name, Kim White Date of : 2000 Provider's Name [facility] Onset Date: 01/05/24 (MD order) Start of Care Date: 01/26/24 Medical Diagnosis: Chiari malformation type I (H) Neck pain PT Treatment Diagnosis: Neck pain with bilat UE sxs and mid to low back pain Plan of Treatment Frequency/Duration: 1x/week/ 8 weeks Certification date from 01/26/24 to 03/21/24 See note for plan of treatment details and functional goals Rustam Medina, LAWANDA I CERTIFY THE NEED FOR THESE SERVICES FURNISHED UNDER THIS PLAN OF TREATMENT AND WHILE UNDER MY CARE (Physician attestation of this document indicates review and certification of the therapy plan). Referring Provider: Ebony Cid Initial Assessment See Epic Evaluation- Start of Care Date: 01/26/24 Associated attestation - Luis Angel Quintero DO - 01/26/2024 5:36 PM CDT Follow the therapist's recommendation documented in this encounter Plan of Treatment Upcoming Encounters Date Type Department Care Team (Latest Contact Info) Description 02/14/2024 12:50 PM CDT Therapy Visit [address] [phone] Rustam Medina, PT [facility] [address] [place] [address] 03/06/2024 3:00 PM CDT Office [facility] [place] [address] [place] [phone] Radha Lomeli APRN PUBLIC SAFETY DIRECTOR [address] [facility] [address] [place] [address] 03/07/2024 9:00 AM CDT Hospital Encounter [facility] [address] [place] [address] Rocky Zepeda DO [address] [place] [address] 03/07/2024 9:00 AM CDT - 03/07/2024 9:30 AM CDT Surgery [facility] [address] [place] [phone] Rocky Zepeda, DO [address] [place], [place] 311[address] Esophagoscopy, gastroscopy, duodenoscopy (EGD), combined 06/21/2024 2:00 PM THERAPY SITE COORDINATOR Office Visit [facility] [place] [address] [address] [place] [address] [place] [address] [place], [place] [phone] Johnny Penn MD [address] [facility] [place], [place] [address] Scheduled Procedures Name Priority Associated Diagnoses Date/Ti id ESOPHAGOGASTRODUODENOSCOPY Eosinophilic esophagitis Esophageal dysphagia 03/07/2024 9:00 AM CDT documented as of this encounter Visit Diagnoses Diagnosis Chiari malformation type I (H) Compression of brain Neck pain Cervicalgia Eosinophilic esophagitis Esophageal dysphagia Dysphagia, pharyngoesophageal phase documented in this encounter Additional Health Concerns Assessment Noted Time PHQ-9 Depression Total Score: 4 06/20/20 23 8:40 AM THERAPY SITE COORDINATOR documented as of this encounter Care Teams Battery Charger Relationship Specialty Start Date End Date Esha Grimm PA-C [address] [place] [phone] PCP - General Family Medicine 05/04/23 Diana Desir, [facility] [address] [place] [address] Pharmacist Pharmacist 04/17/21 Rain Galaviz PA-C [address] [place] [address] [address] [place] [address] Physician Cartographic Aide Dermatology 04/28/21 Tavia Wyatt MD [address] [place] [address] [place] [address] Dermatology 07/14/21 Erica Farrell APRN PUBLIC SAFETY DIRECTOR [address] [place] [address] Nurse Practitioner Cardiovascular Disease 09/09/21 Rcih Barrett MD [address] 1069[address] Physician Ophthalmology 01/21/22 Neil Kent MD [address] [place], [place] 2[address] Dermatology 02/24/22 Diana Desir, [facility] [address] [place] [address] Assigned MTM Pharmacist 04/07/22 Livan Sharif MD [address], [facility] [address] [place] [id number] Cardiovascular Disease 05/14/22 Catherine Cm MD [address] [place] [address] [place] [address] Cardiovascular Disease 07/21/22 Valery Veronica PA-C [address] [place] [address] Physician Cartographic Aide Dermatology 07/21/22 Brea Quinn APRN PUBLIC SAFETY DIRECTOR [address] [place] [address] Nurse Practitioner Dermatology 09/21/22 Brea Quinn APRN PUBLIC SAFETY DIRECTOR [address] [place], [place] 038652 Assigned Surgical Provider 10/09/22 [place] [address] [facility] [address] [place] [address] Assigned Musculoskeletal Provider 10/09/22 Alfonso Renteria MD [address] [facility] [address] [place], [place] 024396 Assigned Neuroscience Provider 04/02/23 Radha Lomeli APRN PUBLIC SAFETY DIRECTOR [address] [facility] [address] [place], [place] 3785[address] Assigned Heart and Vascular Provider 05/28/23 Jelena David OD [address] [place] [address] Ophthalmology 06/15/23 Esha Grimm PA-C [address] [place] [address]83 Assigned PCP 07/16/23 Valery Veronica PA-C [address] [place] [address] Physician Cartographic Aide Dermatology 09/19/23 Rey Tay MD [address] [place] [address] MD Gastroenterology 09/20/23 Rocky Zepeda DO [address] [place] [address] Physician Gastroenterology 09/20/23 Philip Dumont MD [address] [place] [address] Physician Ophthalmology 09/22/23 Meredith Carrera PA-C [address] [place] [address] Assigned Gastroenterology Provider 11/01/23 Neil Kent MD [address] [place] [address] Dermatology 11/02/23 [place] [address] [place] [address] Neurological Surgery 12/26/23 documented as of this encounter
--- OUTSIDE RECORDS SUMMARY | 2024-02-12 05:42 | XMS_ITS | Encounter Summary ---
Author Organization [place] Address [address] [place] [address] Care Team Providers Care Bull Bucker Name Role Phone Thang Diana [place] [facility] Unavailable [phone] Rain Galaviz PA-C Unavailable Tavia Wyatt MD Unavailable Unavailable Erica Farrell WATER RESOURCES PROJECT MANAGER HYPERION ADMINISTRATOR Unavailable Rich Barrett MD Unavailable Neil Kent MD Unavailable Diana Desir Stanislav [facility] Unavailable [phone] Livan Sharif MD Unavailable Catherine Cm MD Unavailable + Valery Veronica PA-C Unavailable [phone] Brea Quinn WATER RESOURCES PROJECT MANAGER HYPERION ADMINISTRATOR Unavailable Brea Quinn WATER RESOURCES PROJECT MANAGER HYPERION ADMINISTRATOR Unavailable [phone] Jose Francisco Johnson MD Unavailable Alfonso Renteria MD Unavailable + [phone] Esha Grimm PA-C Primary Care Provider [phone] Radha Lomeli WATER RESOURCES PROJECT MANAGER HYPERION ADMINISTRATOR Unavailable [phone] Jelena David OD Unavailable Esha GrimmC Unavailable [phone] Valery VeronicaC Unavailable [phone] Rey Tay MD Unavailable Rocky Zepeda DO Unavailable Philip Dumont MD Unavailable [phone] Meredith CarreraC Unavailable [phone] Neil Kent MD Unavailable Juan Palbo Emmanuel MD Unavailable [phone] Encounter Details Date Type Department Care Team (Latest Contact Info) Description 01/11/2024 Travel Social History Tobacco Use Types Packs/Day [...] week 03/10/2023 How often do you attend [facility] or gnosticism services? 1 to 4 [...] 0 10/25/2023 [facility] [...] exercise at this level? 30 min 03/10/2023 [place] Depression Scale Answer Date Recorded [place] Depression Score 5 01/14/2021 Last EPDS Self [...] Description 02/14/2024 12:50 PM CDT Therapy Visit [facility] [address] [phone] Rustam Medina, PT [facility] [address] [place] [address] 03/06/2024 3:00 PM CDT Office Visit [facility] [place] [address] [place] [phone] Radha Lomeli, WATER RESOURCES PROJECT MANAGER HYPERION ADMINISTRATOR [address] [place], [place] [address] 03/07/2024 9:00 AM CDT Hospital Encounter [address] [phone] Rocky Zepeda DO [address] [place], [place] [address] 03/07/2024 9:00 AM CDT - 03/07/2024 9:30 AM CDT Surgery [address] [phone] Rocky Zepeda DO [address] [place] [address] Esophagoscopy, gastroscopy, duodenoscopy (EGD), combined 06/21/2024 2:00 PM CUSTOMER PROFESSIONAL Office Visit [facility] Neurology [facility] [address] [facility] [place] [address] [place] [address] [place], [place] [phone] Johnny Penn MD [address] [place] [address] Scheduled Procedures Name Priority Associated Diagnoses Date/Ti id ESOPHAGOGASTRODUODENOSCOPY Eosinophilic esophagitis Esophageal dysphagia 03/07/2024 9:00 AM CDT documented as of this encounter Visit Diagnoses Not on filedocumented in this encounter Additional Health Concerns Assessment Noted Time PHQ-9 Depression Total Score: 4 06/20/20 23 8:40 AM CUSTOMER PROFESSIONAL documented as of this encounter Care Teams Bull Bucker Relationship Specialty Start Date End Date Esha Grimm PA-C [address] [place] [phone] PCP - General Family Medicine 05/04/23 Diana Desir, [facility] [address] [facility] [place] [address] Pharmacist Pharmacist 04/17/21 Rain Galaviz PA-C [address] [place] [address] [address] [place] [address] Physician Matching Machine Operator Dermatology 04/28/21 Tavia Wyatt MD [address] [place] [address] [address] [place] [address] Dermatology 07/14/21 Erica Farrell APRN HYPERION ADMINISTRATOR [address] [place] [address] Nurse Practitioner Cardiovascular Disease 09/09/21 Rich Barrett MD [address] [facility] [place] [address] Physician Ophthalmology 01/21/22 Neil Kent MD 500 [place] [address] Dermatology 02/24/22 Diana Desir, [facility] [address] [place], [place] 341086 Assigned [place] Pharmacist 04/07/22 Livan Sharif MD [address] [place] [address] [place], [place] [address] Cardiovascular Disease 05/14/22 Catherine Cm MD [address] [address] [place], [place] [address] Cardiovascular Disease 07/21/22 Valery Veronica PA-C [address] [place], [place] 549685 Physician Matching Machine Operator Dermatology 07/21/22 Brea Quinn APRN HYPERION ADMINISTRATOR [address] [place], [place] 7[address] Nurse Practitioner Dermatology 09/21/22 Brea Quinn APRN HYPERION ADMINISTRATOR [address] [facility] [place] [address] Assigned Surgical Provider 10/09/22 [place] [address] [place] [address] Assigned Musculoskeletal Provider 10/09/22 Alfonso Renteria MD [address] [facility] [address] [place], [place] [address] Assigned Neuroscience Provider 04/02/23 Radha Lomeli, WATER RESOURCES PROJECT MANAGER HYPERION ADMINISTRATOR [address] [facility] [address] [place], [place] 4[address]75 Assigned Heart and Vascular Provider 05/28/23 Jelena David OD [address] [facility] [place] [address] Ophthalmology 06/15/23 Esha Grimm PA-C [address] [place] [phone] Assigned PCP 07/16/23 Valery Veronica PA-C [address] [place] [address] Physician Matching Machine Operator Dermatology 09/19/23 Rey Tay MD [address] [place] [address] 896335 Gastroenterology 09/20/23 Rocky Zepeda DO [address] [place] [address] Physician Gastroenterology 09/20/23 Philip Dumont MD [address] [place] [address] Physician Ophthalmology 09/22/23 Meredith Carrera PA-C [address] [place] [address] Assigned Gastroenterology Provider 11/01/23 Neil Kent MD [address] [address] Dermatology 11/02/23 [place] [address] [place] [address] Neurological Surgery 12/26/23 documented as of this encounter
--- OUTSIDE RECORDS SUMMARY | 2024-02-12 05:42 | XMS_ITS | Encounter Summary ---
Author Organization [place] Address [address] [place] [address] Care Team Providers Care Melt Room Operator Name Role Phone Thang Diana [place] [facility] Unavailable [phone] Rain Galaviz PA-C Unavailable [phone] Tavia Wyatt MD Unavailable Unavailable Erica Farrell EMAIL MARKETING EXECUTIVE ROLL THREADER OPERATOR Unavailable Rich Barrett MD Unavailable Neil Kent MD Unavailable Diana Desir Stanislav [facility] Unavailable [phone] Livan Sharif MD Unavailable Catherine Cm MD Unavailable + Valery Veronica PA-C Unavailable [phone] Brea Quinn EMAIL MARKETING EXECUTIVE ROLL THREADER OPERATOR Unavailable Brea Quinn EMAIL MARKETING EXECUTIVE ROLL THREADER OPERATOR Unavailable Jose Francisco Johnson MD Unavailable Alfonso Renteria MD Unavailable + [phone] Esha Grimm PA-C Primary Care Provider Radha Lomeli EMAIL MARKETING EXECUTIVE ROLL THREADER OPERATOR Unavailable [phone] Jelena David OD Unavailable Alfa Eshalincoln DOWC Unavailable [phone] Valery VeronicaC Unavailable [phone] Rey Tay MD Unavailable Rocky Zepeda DO Unavailable Philip Dumont MD Unavailable Meredith CarreraC Unavailable [phone] Neil Kent MD Unavailable Juan Pablo Emmanuel MD Unavailable Encounter Details Date Type Department Care Team (Late st Contact Info) Description 01/23/2024 Telephone [facility] Spine and Neurosurgery [address] [facility] [address] [place] [address] Ebony Cid APRN [facility] 500 [place] [address] Social History Tobacco Use Types [...] Answer Date Recorded PHQ-2 Score 0 10/25/2023 [facility] - Occupational Stress Questionnaire Answer Date [...] exercise at this level? 30 min 03/10/2023 [place] Depression Scale Answer Date Recorded [place] Depression Score 5 01/14/2021 Last EPDS Self [...] encounter Miscellaneous Notes * Telephone Encounter - Macy Pinedo RN - 02/01/2024 9:12 AM CDT Placed call to pt - She called in looking for MRI results. Pt was seen on 01/23/[address] Emmanuel POC: We reviewed that although her tonsils are on the borderline for a Chiari diagnosis, that the foramen magnum is patent and I don't feel this is causative of her symptoms Will refer to Neurology for demyelinating work-up Will order trigger point injections in trapezius muscles for neck pain Spoke to pt, states she is about to board a plane and can't talk. Will send her a myc. * Telephone Encounter - Stanford Ortez - 01/31/2024 3:45 PM CDT Please review message below * Telephone Encounter - Mary Mercado RN - 01/23/2024 10:05 AM CDT Upon chart review pt currently in clinic with neurosurgery team. * Telephone Encounter - Stanford Ortez - 01/23/2024 9:28 AM CDT Who's calling: Patient Family/Other name: On C2C: yes or No: N/A Providers name/other: PAULA Reason for call: PATIENT INFORMATION & QUESTIONS Detailed Message: Patient calling to get imaging results for her MRI. Patient also stated she's been in a lot more pain since she was last seen here. Please call patient to discuss pain symptoms and imaging results. Call back #: [phone] Preferred Pharmacy: documented in this encounter Plan of Treatment Upcoming Encounters Date Type Department Care Team (Latest Contact Info) Description 02/14/2024 12:50 PM CDT Therapy Visit [facility] [address] [address] Rustam Medina, [facility] [address] [place] [address] 03/06/2024 3:00 PM CDT Office Visit [facility] [address] [place] [phone] Radha Lomeli APRN ROLL THREADER OPERATOR [address] [facility] [facility] [address] [place] [address] 03/07/2024 9:00 AM CDT Hospital Encounter [address] [place] [phone] Rocky Zepeda DO [address] [place] [address] 03/07/2024 9:00 AM CDT - 03/07/2024 9:30 AM CDT Surgery [address] [place] [phone] ZepedaRocky, DO [address] [place], [place] [address] Esophagoscopy, gastroscopy, duodenoscopy (EGD), combined 06/21/2024 2:00 PM GREENKEEPER Office Visit [facility] Neurology [facility] [address] [facility], [address] [place] [address] [place] [address] [place], [place] [id number] Johnny Penn MD [address] [facility] [place] [id number] Scheduled Procedures Name Priority Associated Diagnoses Date/Ti in ESOPHAGOGASTRODUODENOSCOPY Eosinophilic esophagitis Esophageal dysphagia 03/07/2024 9:00 AM CDT documented as of this encounter Visit Diagnoses Not on filedocumented in this encounter Additional Health Concerns Assessment Noted Time PHQ-9 Depression Total Score: 4 06/20/20 23 8:40 AM GREENKEEPER documented as of this encounter Care Teams Melt Room Operator Relationship Specialty Start Date End Date Esha Grimm PA-C [address] [place] [address] PCP - General Family Medicine 05/04/23 Diana Desir, [facility] [address] [place] [address] Pharmacist Pharmacist 04/17/21 Rain Galaviz PA-C [address] [place] [address] [address] [facility], [place] [phone] Physician Production Machine Shop Supervisor Dermatology 04/28/21 Tavia Wyatt MD [address] [place] [address] [address] [place] [address] Dermatology 07/14/21 Erica Farrell APRN ROLL THREADER OPERATOR [address] [place], [place] [address] Nurse Practitioner Cardiovascular Disease 09/09/21 Rich Barrett MD [address] [facility] [address] [place], [place] [address] Physician Ophthalmology 01/21/22 Neil Kent MD 500 [place], [place] [address] Dermatology 02/24/[address] [facility] [address] [place], [place] [address] Assigned [place] Pharmacist 04/07/22 Livan Sharif MD [address] [email or web address] [address] [place], [place] [address] Cardiovascular Disease 05/14/22 Catherine Cm MD [address] [facility] [place], [place] [address] Cardiovascular Disease 07/21/22 Valery Veronica, PA-C [address] [place] [address] Physician Production Machine Shop Supervisor Dermatology 07/21/22 Brea Quinn APRN ROLL THREADER OPERATOR 500 [place] [address] Nurse Practitioner Dermatology 09/21/22 Brea Quinn APRN ROLL THREADER OPERATOR 6401 [place] [address] Assigned Surgical Provider 10/09/22 [place] [address] [address] [facility] [[email or web address] 300 [place] [address] Assigned Musculoskeletal Provider 10/09/22 Alfonso Renteria MD [address] [facility] 200 [place] [address] Assigned Neuroscience Provider 04/02/23 Radha Lomeli APRN ROLL THREADER OPERATOR [address] [address] Assigned Heart and Vascular Provider 05/28/23 Jelena David OD [address] [facility] [place] [address] Ophthalmology 06/15/23 Esha Grimm PA-C [address] [place] [phone] Assigned PCP 07/16/23 Valery Veronica PA-C [address] [place] [address]60[address] Physician Production Machine Shop Supervisor Dermatology 09/19/23 Rey Tay MD 9 [place], [place] [address] Gastroenterology 09/20/23 Rocky Zepeda DO [address] [place], [place] [address] Physician Gastroenterology 09/20/23 Philip Dumont MD [address] [place] [address] Physician Ophthalmology 09/22/23 Meredith Carrera PA-C [address] [place] [address]34725 Assigned Gastroenterology Provider 11/01/23 Neil Kent MD [address] [address] Dermatology 11/02/23 [place] [address] [address] [facility] [[email or web address]] [place] [address] Neurological Surgery 12/26/23 documented as of this encounter
--- OUTSIDE RECORDS SUMMARY | 2024-02-12 05:42 | XMS_ITS | Encounter Summary ---
Author Organization [facility] Address [address] [place] [address] Care Team Providers Care Internet Network Specialist Name Role Phone Thang Diana [place] [facility] Unavailable [phone] Rain Galaviz PA-C Unavailable [phone] Tavia Wyatt MD Unavailable Unavailable Erica Farrell SUPERVISOR PIPE JOINTS AGITATOR OPERATOR Unavailable Rich Barrett MD Unavailable Neil Kent MD Unavailable Diana Desir Stanislav [facility] Unavailable [phone] Livan Sharif MD Unavailable Catherine Cm MD Unavailable + Valery Veronica PA-C Unavailable [phone] Brea Quinn SUPERVISOR PIPE JOINTS AGITATOR OPERATOR Unavailable Brea Quinn SUPERVISOR PIPE JOINTS AGITATOR OPERATOR Unavailable Jose Francisco Johnson MD Unavailable Alfonso Renteria MD Unavailable + [phone] Esha Grimm PA-C Primary Care Provider Radha Lomeli SUPERVISOR PIPE JOINTS AGITATOR OPERATOR Unavailable [phone] Jelena David OD Unavailable Esha Grimm Adam PA-C Unavailable [phone] Michela Veronicanarayan Begum PA-C Unavailable Rey Tay MD Unavailable Rocky Zepeda DO Unavailable Philip Dumont MD Unavailable Meredith Carrera Karyna PA-C Unavailable [phone] Neil Kent MD Unavailable Juan Pablo Emmanuel MD Unavailable [phone] Reason for Referral * Consultation (Routine: Next available opening) - Pending Review Specialty Diagnoses / Procedures Referred By Contparviz t Referred To Contact Diagnoses [place] [address] [address] [place] [address] Referral ID Status Reason Start Date Expiration Date V isits Requested Visits Authorized [id number] Pending Review 01/23/2024 01/22/2025 1 1 Question Answer Reason for Referral: General Neurology Scheduling Instructions: [facility] will call you to coordinate your care as prescribed by your provider. If you don't hear from a veterans employment representative within 2 business days, please call . Additional Information: arm paraesthesias Comments Please be aware that coverage of these services is subject to the terms and limitations of your health insurance plan. Call member services at your health plan with any benefit or coverage questions. [facility] will call you to coordinate your care as prescribed by your provider. If you don't hear from a veterans employment representative within 2 business days, please call . * Consultation (Routine: Next available opening) - Pending Review Specialty Diagnoses / Procedures Referred By Contparviz t Referred To Contact Diagnoses [place] [address] [address] [place] [address] Vania Ibrahim MD [address] [facility] 297 [place] [address] Referral ID Status Reason Start Date Expiration Date V isits Requested Visits Authorized [id number] Pending Review 01/23/2024 01/22/2025 1 1 Scheduling Instructions Schedule with Dr. Ibrahim. Question Answer Referral Type: Procedure Procedure: Muscle Injection Injection Type: Trigger Point Scheduling Instructions: [facility] will call you to coordinate your care as prescribed by your provider. If you don't hear from a veterans employment representative within 2 business days, please call . Additional Information: Trigger point injections for the neck Comments Please be aware that coverage of these services is subject to the terms and limitations of your health insurance plan. Call member services at your health plan with any benefit or coverage questions. [facility] will call you to coordinate your care as prescribed by your provider. If you don't hear from a veterans employment representative within 2 business days, please call . Reason for Visit * Reason Comments Consult Encounter Details Date Type Department Care Team ([facility] Contact Info) Description 01/23/2024 10:00 AM CDT Office Visit [facility] Neurology Clinics [address], [address] [place] [address] [place] [address] [place] [address] Neck pain (Primary Dx); Paresthesia of arm; Chiari I malformation (H) Social History Tobacco Use Types Packs/Day [...] [facility] [...] Sign Reading Time Taken Comments Blood Pressure 96/64 01/23/2024 10:08 AM CDT Pulse 69 01/23/2024 10:08 AM CDT Temperature - - Respiratory Rate - - Oxygen Saturation 98% 01/23/2024 10:08 AM CDT Inhaled Oxygen Concentration - - Weight 85.3 kg (188 lb) 01/23/2024 10:08 AM CDT Height - - Body Mass Index 30.34 01/05/2024 2:25 PM CDT documented in this encounter Patient Instructions * Patient Instructions* Rebecca Ott RN - 01/23/2024 10:00 AM CDT Patient Next Steps: Order placed for trigger point injections with Dr. Ibrahim [facility] will call you to coordinate your care as prescribed by your provider. If you don't hear from a veterans employment representative within 2 business days, please call . Referral to neurology. [facility] will call you to coordinate your care as prescribed by your provider. If you don't hear from a veterans employment representative within 2 business days, please call . Please call us if you have any further questions or concerns. [facility] Neurosurgery Clinic documented in this encounter Progress Notes * Juan Pablo Emmanuel MD - 01/23/2024 10:00 AM CDT I was asked by Dr. Grimm to see this patient in consultation 23 year old female with low-lying cerebellar tonsils. Notes over a year of episodic paresthesias, first in the left arm, then began to occur in the leg as well, and now occasionally on the right. Tight neck pain and some headaches as well. Family history of MS and personal past history of epilepsy.MR Brain, personally reviewed, with borderline low-lying tonsils, 6 mm below the foramen magnum on my measurement, with widely patent foramen magnum. Past Medical History: Diagnosis Date Anxiety Chronic kidney disease stones, history of infections Depressive disorder Gastroesophageal reflux disease Psoriasis Seizure (H) 05/02/2019 no seizure since approx 2018 SVT (supraventricular tachycardia) (H24) Past Surgical History: Procedure Laterality Date EP ABLATION SVT N/A 08/28/2021 Procedure: EP Ablation SVT; Surgeon: Galo Burrell MD; [facility] ESOPHAGOS[facility], GASTROSCOPY, DUODENOSCOPY (EGD), COMBINED N/A 06/26/2021 [...] Other, Cigarettes Quit date: 12/07/2019 Years since quittin.1 Passive exposure: Past Smokeless tobacco: Never Vaping Use Vaping status: Every Day Substance and Sexual Activity Alcohol use: Not [...] 30 min Stress: Stress Concern Present (03/10/2023) [employer] [place] [facility] [employer] [facility] - Occupational Stress Questionnaire Feeling of Stress : To some extent Social Connections: Moderately Isolated (03/10/2023) Social Connection and Isolation Panel [NHANES] Frequency of Communication with Friends and Family: Three times a week Frequency of Social Gatherings with Friends and Family: Twice a week Attends Spiritism Services: 1 to 4 times per year [...] hx of Glaucoma No family hx of ROS: 10 point ROS neg other than the symptoms noted above in the HPI. Physical Exam BP 96/64 Pulse 69 Wt 85.3 kg (188 lb) SpO2 98% BMI 30.34 kg/m?? HEENT: Normocephalic, atraumatic. PERRLA. EOM???s intact. Visual jo full to gross exam Neck: Supple, non-tender, without lymphadenopathy. Heart: No peripheral edema Lungs: No SOB Abdomen: Non-distended. Skin: Warm and dry. Extremities: No edema, cyanosis or clubbing. Psychiatric: No apparent distress Musculoskeletal: Normal bulk and tone NEUROLOGICAL EXAMINATION: Mental status: Alert and Oriented x 3, speech is fluent. Cranial nerves: II-XII intact. Motor: Shoulder Abduction: Right: 5 Left: 11/12 Biceps: Right: 11/12 Left: 11/12 Triceps: Right: 11/12 Left: 11/12 Wrist Extensors: Right: 11/12 Left: 11/12 Wrist Flexors: Right: 11/12 Left: 11/12 interosseus : Right: 11/12 Left: 11/12 Hip Flexion: Right: 11/12 Left: 11/12 Quadriceps: Right: 11/12 Left: 11/12 Hamstrings: Right: 11/12 Left: 11/12 Gastroc Soleus: Right: 11/12 Left: 11/12 Tib/Ant: Right: 11/12 Left: 11/12 EHL: Right: 11/12 Left: 5/5 Sensation: Intact Reflexes: Negative Babinski. Negative Clonus. Negative Mccormack's. Coordination: Smooth finger to nose testing. Negative pronator drift. Smooth tandem walking. A/P: 23 year old female with low-lying cerebellar tonsils I had a discussion with the patient, reviewing the history, symptoms, and imaging We reviewed that although her tonsils are on the borderline for a Chiari diagnosis, that he foramenmagnum is patent and I don't feel this is causative of her symptoms Will refer to Neurology for demyelinating work-up Will order trigger point injections in trapezius muscles for neck pain documented in this encounter Plan of Treatment Upcoming Encounters Date Type Department Care Team (Latest Contact Info) Description 02/14/2024 12:50 PM CDT Therapy Visit [address] [address] Rustam Medina, PT [facility] [address] [place] [address] 03/06/2024 3:00 PM CDT Office Visit [facility] [place] [address] [employer] [address] [place] [phone] Radha Lomeli, ARLENE AGITATOR OPERATOR [address] [facility] [address] [place], [place] [address] 03/07/2024 9:00 AM CDT Hospital Encounter [facility] [address] [place] [address] Rocky Zepeda DO 500 [place] [address] 03/07/2024 9:00 AM CDT - 03/07/2024 9:30 AM CDT Surgery [facility] [address] [place] [address] Rocky Zepeda DO 500 [place], [place] [address] Esophagoscopy, gastroscopy, duodenoscopy (EGD), combined 06/21/2024 2:00 PM PLASTERING CONTRACTOR Office Visit [facility] Neurology Clinics - [place] [address] [facility], [address] [place] [phone] [place] [address] [place] [address] Johnny Penn MD [address] [place] [address] Scheduled Procedures Name Priority Associated Diagnoses Date/Ti me ESOPHAGOGASTRODUODENOSCOPY Eosinophilic esophagitis Esophageal dysphagia 03/07/2024 9:00 AM CDT Scheduled Referrals Name Type Priority Associated Diagnoses Orde r Schedule Spine Applications Engineer Referral Referral Routine: Next available opening Neck pain Expected: 01/23/2024 (Approximate), Expires: 01/22/2025 Adult Neurology Applications Engineer Referral Referral Routine: Next available opening Paresthesia of arm Expected: 01/23/2024 (Approximate), Expires: 01/22/2025 documented as of this encounter Visit Diagnoses Diagnosis Neck pain- Primary Cervicalgia Paresthesia of arm Disturbance of skin sensation Chiari I malformation (H) Compression of brain Eosinophilic esophagitis Esophageal dysphagia Dysphagia, pharyngoesophageal phase documented in this encounter Additional Health Concerns Assessment Noted Time PHQ-9 Depression Total Score: 4 06/20/20 23 8:40 AM PLASTERING CONTRACTOR documented as of this encounter Care Teams Internet Network Specialist Relationship Specialty Start Date End Date Esha Grimm PA-C [address] [place] [phone] PCP - General Family Medicine 05/04/23 Diana Desir, [facility] [address] [place] [address] Pharmacist Pharmacist 04/17/21 Rain Galaviz PA-C [address] [place] [address] [address] [place] [address] Physician Emerging Technologies Director Dermatology 04/28/21 Tavia Wyatt MD [address] [place] [address] [place] [address] Dermatology 07/14/21 Erica Farrell APRN AGITATOR OPERATOR [address] [place] [address] Nurse Practitioner Cardiovascular Disease 09/09/21 Rich Barrett MD [address] [facility] [address] [place], [place] [address] Physician Ophthalmology 01/21/22 Neil Kent MD 500 [place], [place] [address] Dermatology 02/24/22 Diana Desir, [facility] [address] [place] [address] Assigned MTM Pharmacist 04/07/22 Livan Sharif MD [address], [address] [place] [address] Cardiovascular Disease 05/14/22 Catherine Cm MD [address] [address] [place] [address] Cardiovascular Disease 07/21/22 Valery Veornica PA-C [address] [place] [address] Physician Emerging Technologies Director Dermatology 07/21/22 Brea Quinn APRN AGITATOR OPERATOR 500 [place] [address] Nurse Practitioner Dermatology 09/21/22 Brea Quinn APRN AGITATOR OPERATOR [address] [place], [place] [address] Assigned Surgical Provider 10/09/22 [place] [address] [facility] [address] [place] [address] Assigned Musculoskeletal Provider 10/09/22 Alfonso Renteria MD [address] [facility] 200 [place], [place] [id number] Assigned Neuroscience Provider 04/02/23 Radha Lomeli APRN AGITATOR OPERATOR [address] [facility] [address] [place] [address] Assigned Heart and Vascular Provider 05/28/23 Jelena David OD [address] [place] [address] Ophthalmology 06/15/23 Esha Grimm PA-C [address] [place] [address] Assigned PCP 07/16/23 Valery Veronica PA-C [address] [place] [address] Physician Emerging Technologies Director Dermatology 09/19/23 Rey Tay MD [address] [place] [address] MD Gastroenterology 09/20/23 Rocky Zepeda DO [address] [place] [address] Physician Gastroenterology 09/20/23 Philip Dumont MD [address] [place] [address] Physician Ophthalmology 09/22/23 Meredith Carrera PA-C [address] [place] [address] Assigned Gastroenterology Provider 11/01/23 Neil Kent MD [address] [place] [address] Dermatology 11/02/23 [place] [address] [place] [address] Neurological Surgery 12/26/23 documented as of this encounter
--- OUTSIDE RECORDS SUMMARY | 2024-02-12 05:42 | XMS_ITS | Encounter Summary ---
Author Organization [place] Address [address] [place] [address] Care Team Providers Care Rehab Manager Name Role Phone Thang Diana [place] [facility] Unavailable Rain Galaviz PA-C Unavailable Tavia Wyatt MD Unavailable Unavailable Erica Farrell VOICE PATHOLOGIST DRIER BELT CONVEYOR Unavailable Rich Barrett MD Unavailable Neil Kent MD Unavailable Diana Desir Stanislav [facility] Unavailable [phone] Livan Sharif MD Unavailable Catherine Cm MD Unavailable + Valery Veronica PA-C Unavailable [phone] Brea Quinn VOICE PATHOLOGIST DRIER BELT CONVEYOR Unavailable Brea Quinn VOICE PATHOLOGIST DRIER BELT CONVEYOR Unavailable Jose Francisco Johnson MD Unavailable Alfonso Renteria MD Unavailable + [phone] Esha Grimm PA-C Primary Care Provider Radha Lomeli VOICE PATHOLOGIST DRIER BELT CONVEYOR Unavailable [phone] Jelena David OD Unavailable Esha GrimmC Unavailable [phone] Valery VeronicaC Unavailable [phone] Rey Tay MD Unavailable Rocky Zepeda DO Unavailable Philip Dumont MD Unavailable [phone] Meredith CarreraC Unavailable [phone] Neil Kent MD Unavailable Juan Pablo Emmanuel MD Unavailable [phone] Encounter Details Date Type Department Care Team (Latest Contact Info) Description 01/23/2024 Travel Social History Tobacco Use Types Packs/Day [...] week 03/10/2023 How often do you attend [facility] or hinduism services? 1 to 4 times [...] [facility] - Occupational Stress Questionnaire [...] exercise at this level? 30 min 03/10/2023 [place] Depression Scale Answer Date Recorded [place] Depression Score 5 01/14/2021 Last EPDS Self [...] Description 02/14/2024 12:50 PM CDT Therapy Visit [facility] Services [address] [address] Rustam Medina, PT [facility] [address] [place] [address] 03/06/2024 3:00 PM CDT Office [facility] [place] [address] [facility] [address] [place] [phone] Radha Lomeli, VOICE PATHOLOGIST DRIER BELT CONVEYOR [address] [place], [place] [address] 03/07/2024 9:00 AM CDT Hospital Encounter [address] [phone] Rocky Zepeda DO 500 [place], [place] [address] 03/07/2024 9:00 AM CDT - 03/07/2024 9:30 AM CDT Surgery [address] [phone] Rocky Zepeda DO 500 [place] [address] Esophagoscopy, gastroscopy, duodenoscopy (EGD), combined 06/21/2024 2:00 PM FLOORHAND Office Visit [facility] [address] [facility], [address] [place] [address] [place] [address] [place], [place] [id number] Johnny Penn MD 2305 [place] [address] Scheduled Procedures Name Priority Associated Diagnoses Date/Ti ne ESOPHAGOGASTRODUODENOSCOPY Eosinophilic esophagitis Esophageal dysphagia 03/07/2024 9:00 AM CDT documented as of this encounter Visit Diagnoses Not on filedocumented in this encounter Additional Health Concerns Assessment Noted Time PHQ-9 Depression Total Score: 4 06/20/20 23 8:40 AM FLOORHAND documented as of this encounter Care Teams Rehab Manager Relationship Specialty Start Date End Date Esha Grimm PA-C [address] [place] [phone] PCP - General Family Medicine 05/04/23 Diana Desir, [facility] [address] [facility] [place] [address] Pharmacist Pharmacist 04/17/21 Rain Galaviz PA-C [address] [place] [address] [address] [place] [address] Physician Defect Cutter Dermatology 04/28/21 Tavia Wyatt MD [address] [place] [address] [address] [place] [address] Dermatology 07/14/21 Erica Farrell APRN DRIER BELT CONVEYOR [address] [place] [address] Nurse Practitioner Cardiovascular Disease 09/09/21 Rich Barrett MD [address] [facility] [place] [address] Physician Ophthalmology 01/21/22 Neil Kent MD 500 [place] [address] Dermatology 02/24/22 Diana Desir, [facility] [address] [place], [place] 364796 Assigned [place] Pharmacist 04/07/22 Livan Sharif MD [address] [place], [place] [address] Cardiovascular Disease 05/14/22 Catherine Cm MD [address] [place], [place] 6[address] Cardiovascular Disease 07/21/22 Valery Veronica PA-C [address] [place], [place] [address] Physician Defect Cutter Dermatology 07/21/22 Brea Quinn APRN DRIER BELT CONVEYOR 500 [place], [place] 7255[address] Nurse Practitioner Dermatology 09/21/22 Brea Quinn APRN DRIER BELT CONVEYOR [address] [facility] [place] [address] Assigned Surgical Provider 10/09/22 [place] [address] [place] [address] Assigned Musculoskeletal Provider 10/09/22 Alfonso Renteria MD [address] [facility] 200 [place], [place] 4[address] Assigned Neuroscience Provider 04/02/23 Radha Lomeli, VOICE PATHOLOGIST DRIER BELT CONVEYOR [address] [facility] [address] [place], [place] [address] Assigned Heart and Vascular Provider 05/28/23 Jelena David OD [address] [facility] [place] [address] Ophthalmology 06/15/23 Esha Grimm PA-C [address] [place] [address]-80917283 Assigned PCP 07/16/23 Valery Veronica PA-C [address] [place] [address] 072835 Physician Defect Cutter Dermatology 09/19/23 Rey Tay MD [address] [place] [address] 606435 Gastroenterology 09/20/23 Rocky Zepeda DO [address] [place] [address] Physician Gastroenterology 09/20/23 Philip Dumont MD 516 [place] [address] Physician Ophthalmology 09/22/23 Meredith Carrera PA-C [address] [place] [address] Assigned Gastroenterology Provider 11/01/23 Neil Kent MD [address] [address] Dermatology 11/02/23 [place] [address] [place] [address] Neurological Surgery 12/26/23 documented as of this encounter
[2024-02-12 05:43] LABS: RBC Urine 0-2 (0-2); WBC Urine 0-2 (0-5)
--- OUTSIDE RECORDS SUMMARY | 2024-02-12 05:43 | XMS_ITS | Encounter Summary ---
Author Organization [place] Address [address] [place] [address] Care Team Providers Care State Game Warden Name Role Phone Thang Diana [place] [facility] Unavailable [phone] Rain Galaviz PA-C Unavailable Tavia Wyatt MD Unavailable Unavailable Erica Farrell SPORTS MARKETING INTERNSHIP FAMILY AND MARRIAGE COUNSELLOR Unavailable Rich Barrett MD Unavailable Neil Kent MD Unavailable Diana Desir Stanislav [facility] Unavailable [phone] Livan Sharif MD Unavailable Catherine Cm MD Unavailable + Valery Veronica PA-C Unavailable [phone] Brea Quinn SPORTS MARKETING INTERNSHIP FAMILY AND MARRIAGE COUNSELLOR Unavailable Brea Quinn SPORTS MARKETING INTERNSHIP FAMILY AND MARRIAGE COUNSELLOR Unavailable Jose Francisco Johnson MD Unavailable Alfonso Renteria MD Unavailable + [phone] Esha Grimm PA-C Primary Care Provider Radha Lomeli SPORTS MARKETING INTERNSHIP FAMILY AND MARRIAGE COUNSELLOR Unavailable [phone] Jelena David OD Unavailable Wicho Grimmlincoln Medina PA-C Unavailable [phone] Valery VeronicaC Unavailable [phone] Rey Tay MD Unavailable ZepedaRocky Unavailable Philip Dumont MD Unavailable [phone] Meredith Carrera PA-C Unavailable Neil Kent MD Unavailable Juan Pablo Emmanuel MD Unavailable [phone] Reason for Visit * Reason Onset Date Comments Pre Visit Planning - 2 Attempts 01/02/2024 Pre charting Encounter Details Date Type Department Care Team (Late st Contact Info) Description 01/02/2024 PRE VISIT [facility] [address] [address] [place] [address] [address] Pre Visit Planning - 2 [...] Answer Date Recorded PHQ-2 Score 0 10/25/2023 [facility] - Occupational Stress Questionnaire Answer Date [...] exercise at this level? 30 min 03/10/2023 [place] Depression Scale Answer Date Recorded [place] [...] Description 02/14/2024 12:50 PM CDT Therapy Visit [facility] [place] [address] [place] [phone] Rustam Medina, PT [facility] [id number] [place] [address] 03/06/2024 3:00 PM CDT Office Visit [facility] [place] [address] [facility] [address] [place] [phone] Radha Lomeli, [employer] INTERNSH[employer] FAMILY AND MARRIAGE COUNSELLOR [address] [place], [place] [address] 03/07/2024 9:00 AM CDT Hospital Encounter [facility] [address] [facility] [address] 5th [place] [address] Rocky Zepeda DO 500 [place] [address] 03/07/2024 9:00 AM CDT - 03/07/2024 9:30 AM CDT Surgery [facility] [address] [facility] [address] 5th [place] [phone] Rocky Zepeda DO 500 [place] [address] Esophagoscopy, gastroscopy, duodenoscopy (EGD), combined 06/21/2024 2:00 PM CARTON WAXING MACHINE OPERATOR Office Visit [facility] [place] [address] [place] [address], [address] [place] [phone] [place] [address] [place], [place] [phone] Johnny Penn MD 4871 [place], [place] [address] Scheduled Procedures Name Priority Associated Diagnoses Date/Ti fl ESOPHAGOGASTRODUODENOSCOPY Eosinophilic esophagitis Esophageal dysphagia 03/07/2024 9:00 AM CDT documented as of this encounter Visit Diagnoses Not on filedocumented in this encounter Additional Health Concerns Assessment Noted Time PHQ-9 Depression Total Score: 4 06/20/20 23 8:40 AM CARTON WAXING MACHINE OPERATOR documented as of this encounter Care Teams State Game Warden Relationship Specialty Start Date End Date Esha Grimm PA-C [address] [place] [address] PCP - General Family Medicine 05/04/23 Diana Desir, [facility] [address] [place] [address] Pharmacist Pharmacist 04/17/21 Rain Galaviz PA-C [address] [place] [address] [address] [place] [address] Physician Marbleizing Machine Tender Dermatology 04/28/21 Tavia Wyatt MD [address] [place] [address] [place] [address] Dermatology 07/14/21 Erica Farrell, [place] FAMILY AND MARRIAGE COUNSELLOR [address] [place] [address] Nurse Practitioner Cardiovascular Disease 09/09/21 Rich Barrett MD [address] [place] [address] 805425 Physician Ophthalmology 01/21/22 Neil Kent MD 500 [place], [place] [address]305 Dermatology 02/24/22 Diana Desir, [facility] 3033 [place] [address] Assigned MTM Pharmacist 04/07/22 Livan Sharif MD [address] [place] [address] Cardiovascular Disease 05/14/22 Catherine Cm MD [address] [place] 6[address] Cardiovascular Disease 07/21/22 Valery Veronica PA-C [address] [place] [address] Physician Marbleizing Machine Tender Dermatology 07/21/22 Brea Quinn APRN FAMILY AND MARRIAGE COUNSELLOR 500 [place] [address] Nurse Practitioner Dermatology 09/21/22 Brea Quinn APRN FAMILY AND MARRIAGE COUNSELLOR [address] [place] [address] Assigned Surgical Provider 10/09/22 [place] [address] [address] [facility] 300 [place] [address] Assigned Musculoskeletal Provider 10/09/22 Alfonso Renteria MD [address] [facility] 200 [place], [place] 513[address] Assigned Neuroscience Provider 04/02/23 Radha Lomeli APRN FAMILY AND MARRIAGE COUNSELLOR [address] [place], [place] [address] [place] [address] Assigned Heart and Vascular Provider 05/28/23 Jelena David OD [address] [place] [address] Ophthalmology 06/15/23 Esha Grimm PA-C [address] [place] [address]25983 Assigned PCP 07/16/23 Valery Veronica PA-C [address] [place] [address] Physician Marbleizing Machine Tender Dermatology 09/19/23 Rey Tay MD [address] [place] [address] MD Gastroenterology 09/20/23 Rocky Zepeda DO [address] [place] [address] Physician Gastroenterology 09/20/23 Philip Dumont MD [address] [place] [address] Physician Ophthalmology 09/22/23 Meredith [place] PA-C [address] [place] [address] Assigned Gastroenterology Provider 11/01/23 Neil Kent MD [address] 280[address] Dermatology 11/02/23 [place] [address] [place] [address] Neurological Surgery 12/26/23 documented as of this encounter
--- OUTSIDE RECORDS SUMMARY | 2024-02-12 05:43 | XMS_ITS | Encounter Summary ---
Author Organization [place] Address [address] [place] [address] Care Team Providers Care Patient Scheduling Coordinator Name Role Phone Thang Diana [place] [facility] Unavailable [phone] Rain Galaviz PA-C Unavailable [phone] Tavia Wyatt MD Unavailable Unavailable Erica Farrell CONTROL ANALYST IMAGING SYSTEM ADMINISTRATOR Unavailable Rich Barrett MD Unavailable Neil Kent MD Unavailable Diana Desir Stanislav [facility] Unavailable [phone] Livan Shairf MD Unavailable Catherine Cm MD Unavailable + Valery Veronica PA-C Unavailable [phone] Brea Quinn CONTROL ANALYST IMAGING SYSTEM ADMINISTRATOR Unavailable Brea Quinn CONTROL ANALYST IMAGING SYSTEM ADMINISTRATOR Unavailable Jose Francisco Johnson MD Unavailable Alfonso Renteria MD Unavailable + [phone] Esha Grimm PA-C Primary Care Provider Radha Lomeli CONTROL ANALYST IMAGING SYSTEM ADMINISTRATOR Unavailable [phone] Jelena David OD Unavailable Esha GrimmC Unavailable [phone] Valery VeronicaC Unavailable [phone] Rey Tay MD Unavailable Rocky Zepeda DO Unavailable Philip Dumont MD Unavailable [phone] Meredith CarreraC Unavailable [phone] Neil Kent MD Unavailable Juan Pablo Emmanuel MD Unavailable [phone] Encounter Details Date Type Department Care Team [...] often do you attend [facility] or pentecostal services? 1 to 4 times [...] PHQ-2 Score 0 10/25/2023 [facility] [...] in an abandoned building, in an overnight long term, or couch-surfing.) Yes 07/14/2023 Are you worried [...] Description 02/14/2024 12:50 PM CDT Therapy Visit [facility] Services [address] [address] Rustam Medina, PT [facility] [address] [place] [address] 03/06/2024 3:00 PM CDT Office Visit [facility] [place] [address] [facility] [address] [place] [phone] Radha Lomeli, CONTROL ANALYST IMAGING SYSTEM ADMINISTRATOR [address] [place], [place] [address] 03/07/2024 9:00 AM CDT Hospital Encounter [address] [phone] Rocky Zepeda DO 500 [place], [place] [address] 03/07/2024 9:00 AM CDT - 03/07/2024 9:30 AM CDT Surgery [address] [phone] Rocky Zepeda DO 500 [place] [address] Esophagoscopy, gastroscopy, duodenoscopy (EGD), combined 06/21/2024 2:00 PM FIRE SPRINKLER INSPECTOR Office Visit [facility] [address] [facility], [address] [place] [address] [place] [address] [place] [address] Johnny Penn MD [address] [place] [address] Scheduled Procedures Name Priority Associated Diagnoses [...] 4 06/20/20 23 8:40 AM FIRE SPRINKLER INSPECTOR documented as of this encounter Care Teams Patient Scheduling Coordinator Relationship Specialty Start Date End Date Esha Grimm PA-C [address] [place] [phone] PCP - General Family Medicine 05/04/23 Diana Desir, [facility] [address] [place] [address] Pharmacist Pharmacist 04/17/21 Rain Galaviz PA-C [address] [place] [address] [address] [place] [id number] Physician Mechanical Product Engineer Dermatology 04/28/21 Tavia Wyatt MD [address] [place] [address] [address] [place] [address] Dermatology 07/14/21 Erica Farrell APRN IMAGING SYSTEM ADMINISTRATOR [address] [place], [place] [address] Nurse Practitioner Cardiovascular Disease 09/09/21 Rich Barrett MD 516 [facility] 9[address] [place], [place] [address] Physician Ophthalmology 01/21/22 Neil Kent MD 500 [place], [place] 9[address]265 Dermatology 02/24/22 [facility] 3033 [place], [place] 8[address]366 Assigned MTM Pharmacist 04/07/22 Livan Sharif MD [address] [facility] [address] [place], [place] [address] Cardiovascular Disease 05/14/22 Catherine Cm MD [address] 386615 Cardiovascular Disease 07/21/22 Valery Veronica, PA-C [address] [place] [address] 474565 Physician Mechanical Product Engineer Dermatology 07/21/22 Brea Quinn APRN IMAGING SYSTEM ADMINISTRATOR 500 [place] [address] Nurse Practitioner Dermatology 09/21/22 Brea Quinn APRN IMAGING SYSTEM ADMINISTRATOR 6401 [facility] [place] [address] Assigned Surgical Provider 10/09/22 [place] [address] [address] [facility] 300 [place] [address] Assigned Musculoskeletal Provider 10/09/22 Alfonso Renteria MD [address] [facility] 200 [place] [address] Assigned Neuroscience Provider 04/02/23 Radha Lomeli APRN IMAGING SYSTEM ADMINISTRATOR [address] [address] Assigned Heart and Vascular Provider 05/28/23 Jelena David OD [address] [place] [address] Ophthalmology 06/15/23 Esha Grimm PA-C [address] [place] [address]480[address] Assigned PCP 07/16/23 Valery Veronica PA-C 9 [place], [place] [address] Physician Mechanical Product Engineer Dermatology 09/19/23 Rey Tay MD 909 [place], [place] 6[address] Gastroenterology 09/20/23 Rocky Zepeda DO [address] [place] [address] 661335 Physician Gastroenterology 09/20/23 Philip Dumont MD [address] [place] [address] 209745 Physician Ophthalmology 09/22/23 Meredith Carrera PA-C [address] [place] [address] 265085 Assigned Gastroenterology Provider 11/01/23 Neil Kent MD [address] 546070 Dermatology 11/02/23 [place] [address] [id number] Neurological Surgery 12/26/23 documented as of this encounter
--- OUTSIDE RECORDS SUMMARY | 2024-02-12 05:43 | XMS_ITS | Encounter Summary ---
Author Organization [place] Address [address] [place] [address] Care Team Providers Care Machine Icer Name Role Phone Thang Diana [place] [facility] Unavailable [phone] Rain Galaviz PA-C Unavailable Tavia Wyatt MD Unavailable Unavailable Erica Farrell STRIP PICKER LEAD REFINER Unavailable Rich Barrett MD Unavailable Neil Kent MD Unavailable Diana Desir Stanislav [facility] Unavailable [phone] Livan Sharif MD Unavailable Catherine Cm MD Unavailable + Valery Veronica PA-C Unavailable [phone] Brea Quinn STRIP PICKER LEAD REFINER Unavailable Brea Quinn STRIP PICKER LEAD REFINER Unavailable [phone] Jose Francisco Johnson MD Unavailable Alfonso Renteria MD Unavailable + [phone] Esha Grimm PA-C Primary Care Provider Radha Lomeli STRIP PICKER LEAD REFINER Unavailable [phone] Jelena David OD Unavailable Esha Grimm Adam PA-C Unavailable [phone] Valery VeronicaC Unavailable [phone] Rey Tay MD Unavailable Rocky Zepeda Unavailable Philip Dumont MD Unavailable Meredith Carrera-C Unavailable Neil Kent MD Unavailable Juan Pablo Emmanuel MD Unavailable Reason for Visit * Reason Onset Date Comments Appointment 01/06/2024 Encounter Details Date Type Department Care Team (Late st Contact Info) Description 01/06/[address] [facility] Neurology [address], [address] [place] [address] [place] [address] [place] [address] Appointment Social History Tobacco Use [...] Answer Date Recorded PHQ-2 Score 0 10/25/2023 [facility] of Occupat ional Health [...] exercise at this level? 30 min 03/10/2023 [place] Depression Scale Answer Date Recorded Mellen Depression Score 5 01/14/2021 Last EPDS Self [...] Pablo Emmanuel MD on 01/09/24 in our [place] location. A voicemail was left with a call back number if the patient has questions or would like to reschedule. documented in this encounter Plan of Treatment Upcoming Encounters Date Type Department Care Team (Latest Contact Info) Description 02/14/2024 12:50 PM CDT Therapy Visit [facility] [address] [place] [address] Rustam Medina, PT [facility] [id number] [place] [address] 03/06/2024 3:00 PM CDT Office Visit [facility] Heart [address] [phone] Radha Lomeli, STRIP PICKER LEAD REFINER [address] [place], [place] [address] 03/07/2024 9:00 AM CDT Hospital Encounter [facility] OR [address]th [place] [phone] Rocky Zepeda DO 500 [place], [place] [address] 03/07/2024 9:00 AM CDT - 03/07/2024 9:30 AM CDT Surgery [facility] OR [address] [phone] Rocky Zepeda DO 500 [place], [place] [address] Esophagoscopy, gastroscopy, duodenoscopy (EGD), combined 06/21/2024 2:00 PM AMUSEMENT RIDE INSPECTOR Office Visit M [facility] Neurology Clinics - [place] [address] [place] [address], [address] [place] [phone] [place] [address] [place], [place] [address] Johnny Penn MD [address] [place], [place] [address] Scheduled Procedures Name Priority Associated Diagnoses Date/Ti az ESOPHAGOGASTRODUODENOSCOPY Eosinophilic esophagitis Esophageal dysphagia 03/07/2024 9:00 AM CDT documented as of this encounter Visit Diagnoses Not on filedocumented in this encounter Additional Health Concerns Assessment Noted Time PHQ-9 Depression Total Score: 4 06/20/20 23 8:40 AM AMUSEMENT RIDE INSPECTOR documented as of this encounter Care Teams Machine Icer Relationship Specialty Start Date End Date Esha Grimm, [place] [address] [place] [address] PCP - General Family Medicine 05/04/23 Diana Desir, [facility] [address] [place] [address] Pharmacist Pharmacist 04/17/21 Rain Galaviz PA-C [address] [place] [address] [address] [place] [address] Physician Violin Tutor Dermatology 04/28/21 Tavia Wyatt MD [address] [place] [address] [place] [address] Dermatology 07/14/21 Erica Farrell APRN LEAD REFINER [address] [place] [address] Nurse Practitioner Cardiovascular Disease 09/09/21 Rich Barrett MD [address] 0689[address] Physician Ophthalmology 01/21/22 Neil Kent MD 500 [place], [place] [address] Dermatology 02/24/22 Diana Desir, [facility] [address] [place] [address] Assigned MTM Pharmacist 04/07/22 Livan Sharif MD [address] [place] [address] Cardiovascular Disease 05/14/22 Catherine Cm MD [address]405 [facility] [address] [place] [address] Cardiovascular Disease 07/21/22 Valery Veronica, PA-C [address] [place] [address] Physician Violin Tutor Dermatology 07/21/22 Brea Quinn APRN LEAD REFINER [address] [place] [address] Nurse Practitioner Dermatology 09/21/22 Brea Quinn APRN LEAD REFINER 6401 [place] [address] Assigned Surgical Provider 10/09/22 [place] [address] [place] [address] Assigned Musculoskeletal Provider 10/09/22 Alfonso Renteria MD 5775 [facility] 200 [place] [address] Assigned Neuroscience Provider 04/02/23 Radha Lomeli APRN LEAD REFINER [address] [address] [place] 786145 Assigned Heart and Vascular Provider 05/28/23 Jelena David OD 3[address] [facility] [place] [address] MD Ophthalmology 06/15/23 Esha Grimm PA-C [address] [place] [address] Assigned PCP 07/16/23 Valery Veronica PA-C [address] [place] [address] Physician Violin Tutor Dermatology 09/19/23 Rey Tay MD [address] [place] [address] 840395 MD Gastroenterology 09/20/23 Rocky Zepeda DO [address] [place] [address] 913725 Physician Gastroenterology 09/20/23 Philip Dumont MD [address] [place] [address] Physician Ophthalmology 09/22/23 Meredith Carrera PA-C [address] [place] [address] Assigned Gastroenterology Provider 11/01/23 Neil Kent MD [address] [place] [address] Dermatology 11/02/23 [place] [address] [place] [address] Neurological Surgery 12/26/23 documented as of this encounter
--- OUTSIDE RECORDS SUMMARY | 2024-02-12 05:43 | XMS_ITS | Encounter Summary ---
Author Organization [place] Address [address] [place] [address] Care Team Providers Care Stretcher Leveler Operator Helper Name Role Phone Thang Diana [place] [facility] Unavailable Rain Galaviz PA-C Unavailable Tavia Wyatt MD Unavailable Unavailable Erica Farrell EYEWEAR MANUFACTURING SUPERVISOR NEEDLE POLISHER Unavailable Rich Barrett MD Unavailable Neil Kent MD Unavailable Diana Desir Stanislav [facility] Unavailable [phone] Livan Sharif MD Unavailable Catherine Cm MD Unavailable + Valery Veronica PA-C Unavailable [phone] Brea Quinn EYEWEAR MANUFACTURING SUPERVISOR NEEDLE POLISHER Unavailable Brea Quinn EYEWEAR MANUFACTURING SUPERVISOR NEEDLE POLISHER Unavailable Jose Francisco Johnson MD Unavailable Alfonso Renteria MD Unavailable + [phone] Esha Grimm PA-C Primary Care Provider [phone] Radha Lomeli EYEWEAR MANUFACTURING SUPERVISOR NEEDLE POLISHER Unavailable [phone] Jelena David OD Unavailable Esha GrimmC Unavailable [phone] Valery VeronicaC Unavailable [phone] Rey Tay MD Unavailable Rocky Zepeda DO Unavailable Philip Dumont MD Unavailable [phone] Meredith CarreraC Unavailable [phone] Neil Kent MD Unavailable Juan Pablo Emmanuel MD Unavailable [phone] Encounter Details Date Type Department Care Team (Latest Contact Info) Description 01/09/2024 Travel Social History Tobacco Use Types Packs/Day [...] How often do you attend [facility] or spirit[facility] services? 1 to 4 times [...] Answer Date Recorded PHQ-2 Score 0 10/25/2023 [facility] [...] exercise at this level? 30 min 03/10/2023 [place] Depression Scale Answer Date Recorded [place] Depression Score 5 01/14/2021 Last EPDS Self [...] Description 02/14/2024 12:50 PM CDT Therapy Visit [facility] [address] [address] Rustam Medina, PT [facility] [address] [place] [address] 03/06/2024 3:00 PM CDT Office Visit [facility] [place] [address] [facility] [address] [place] [phone] Radha Lomeli, EYEWEAR MANUFACTURING SUPERVISOR NEEDLE POLISHER [address] [place], [place] [address] 03/07/2024 9:00 AM CDT Hospital Encounter [address] [phone] Rocky Zepeda DO 500 [place], [place] [address] 03/07/2024 9:00 AM CDT - 03/07/2024 9:30 AM CDT Surgery [address] [phone] Rocky Zepeda DO 500 [place] [address] Esophagoscopy, gastroscopy, duodenoscopy (EGD), combined 06/21/2024 2:00 PM LIQUOR STORE MANAGER Office Visit [facility] [address] [facility], [address] [place] [address] [place] [address] [place], [place] [phone] Johnny Penn MD 6883 [place] [address] Scheduled Procedures Name Priority Associated Diagnoses Date/Ti mn ESOPHAGOGASTRODUODENOSCOPY Eosinophilic esophagitis Esophageal dysphagia 03/07/2024 9:00 AM CDT documented as of this encounter Visit Diagnoses Not on filedocumented in this encounter Additional Health Concerns Assessment Noted Time PHQ-9 Depression Total Score: 4 06/20/20 23 8:40 AM LIQUOR STORE MANAGER documented as of this encounter Care Teams Stretcher Leveler Operator Helper Relationship Specialty Start Date End Date Esha Grimm PA-C [address] [place] [phone] PCP - General Family Medicine 05/04/23 Diana Desir, [facility] [address] [facility] [address] Pharmacist Pharmacist 04/17/21 Rain Galaviz PA-C [address] [place] [address] [address] [place] [address] Physician Outsole Cementer Machine Dermatology 04/28/21 Tavia Wyatt MD [address] [place] [address] [address] [place] [address] Dermatology 07/14/21 Erica Farrell APRN NEEDLE POLISHER [address] [place] 7[address]85 Nurse Practitioner Cardiovascular Disease 09/09/21 Rich Barrett MD 516 [facility] [place] [address] Physician Ophthalmology 01/21/22 Neil Kent MD 500 [place] [address] Dermatology 02/24/22 Diana Desir, [facility] 30[address] [place], [place] [address]336 Assigned [place] Pharmacist 04/07/22 Livan Sharif MD [address] [place], [place] [address] Cardiovascular Disease 05/14/22 Catherine Cm MD [address] [place], [place] 2459[address] Cardiovascular Disease 07/21/22 Valery Veronica PA-C 909 [place], [place] 843365 Physician Outsole Cementer Machine Dermatology 07/21/22 Brea Quinn APRN NEEDLE POLISHER 500 [place], [place] 7[address] Nurse Practitioner Dermatology 09/21/22 Brea Quinn APRN NEEDLE POLISHER 6401 [facility] [place] [address] Assigned Surgical Provider 10/09/22 [place] [address] [place] [address] Assigned Musculoskeletal Provider 10/09/22 Alfonso Renteria MD [address] [facility] 200 [place], [place] 74[address] Assigned Neuroscience Provider 04/02/23 Radha Lomeli, EYEWEAR MANUFACTURING SUPERVISOR NEEDLE POLISHER 6405 [facility] [address] [place], [place] [address] Assigned Heart and Vascular Provider 05/28/23 Jelena David OD [address] [facility] [place] [address] Ophthalmology 06/15/23 Esha Grimm PA-C [address] [place] [phone] Assigned PCP 07/16/23 Valery Veronica PA-C [address] [place] [address] 025205 Physician Outsole Cementer Machine Dermatology 09/19/23 Rey Tay MD [address] [place] [address] 936535 Gastroenterology 09/20/23 Rocky Zepeda DO [address] [place] [address] Physician Gastroenterology 09/20/23 Philip Dumont MD 516 [place] [address] Physician Ophthalmology 09/22/23 Meredith Carrera PA-C [address] [place] [address] Assigned Gastroenterology Provider 11/01/23 Neil Kent MD [address] [address] Dermatology 11/02/23 [place] [address] [place] [address] Neurological Surgery 12/26/23 documented as of this encounter
--- OUTSIDE RECORDS SUMMARY | 2024-02-12 05:43 | XMS_ITS | Encounter Summary ---
Author Organization [place] Address [address] [place] [address] Care Team Providers Care Cessation Systems Outreach Specialist Name Role Phone Thang Diana [place] [facility] Unavailable Rain Galaviz PA-C Unavailable Tavia Wyatt MD Unavailable Unavailable Erica Farrell ELECTRICAL SYSTEMS DESIGNER PROPERTY UNDERWRITER Unavailable Rich Barrett MD Unavailable Neil Kent MD Unavailable Diana Desir Stanislav [facility] Unavailable [phone] Livan Sharif MD Unavailable Catherine Cm MD Unavailable + Valery Veronica PA-C Unavailable [phone] Brea Quinn ELECTRICAL SYSTEMS DESIGNER PROPERTY UNDERWRITER Unavailable [phone] Brea Quinn ELECTRICAL SYSTEMS DESIGNER PROPERTY UNDERWRITER Unavailable Jose Francisco Johnson MD Unavailable Alfonso Renteria MD Unavailable + [phone] Esha Grimm PA-C Primary Care Provider Radha Lomeli ELECTRICAL SYSTEMS DESIGNER PROPERTY UNDERWRITER Unavailable [phone] Jelena David OD Unavailable Esha Grimm PA-C Unavailable [phone] Valery VeronicaC Unavailable [phone] Rey Tay MD Unavailable ZepedaEvansximena STEVENS Unavailable Philip Dumont MD Unavailable Meredith CarreraC Unavailable Neil Kent MD Unavailable Juan Pablo Emmanuel MD Unavailable Reason for Visit * Reason Onset Date Comments Same Day Appointment 12/26/2023 sore throat , body aches, headaches couple days Encounter Details Date Type Department Care Team (Late st Contact Info) Description 12/26/2023 Telephone [facility] [address] [place] [address] Esha Grimm PA-C [address] [place] [address] Same Day Appointment (sore throat, [...] How often do you attend [facility] or bahai services? 1 to 4 times [...] Answer Date Recorded PHQ-2 Score 0 10/25/2023 [facility] of Occupat ional Health - Occupational Stress [...] exercise at this level? 30 min 03/10/2023 [place] Depression Scale Answer Date Recorded [place] Depression Score 5 01/14/2021 Last EPDS Self [...] we send this information to you in [facility] or would you prefer to receive a phone call?: Patient would prefer a phone call Okay to leave a detailed message?: Yes at Cell number on file: Telephone Information: Call taken on 12/26/2023 at 8:10 AM by Nohemi Cortez documented in this encounter Plan of Treatment Upcoming Encounters Date Type Department Care Team (Latest Contact Info) Description 02/14/2024 12:50 PM CDT Therapy Visit [facility] [place] [address] [place] [phone] Rustam Medina, PT [facility] [address] [place] [address] 03/06/2024 3:00 PM CDT Office Visit [facility] [place] [address] [facility] [address] [place] [phone] Radha Lomeli APRN PROPERTY UNDERWRITER [address] [facility] [address] [place], [place] [address] 03/07/2024 9:00 AM CDT Hospital Encounter [facility] 9[address] [facility] 5th [place] [phone] Rocky Zepeda DO 500 [place], [place] [address] 03/07/2024 9:00 AM CDT - 03/07/2024 9:30 AM CDT Surgery [facility] 9[address] [facility] 5th [place] [phone] Rocky Zepeda DO 500 [place], [place] [phone] Esophagoscopy, gastroscopy, duodenoscopy (EGD), combined 06/21/2024 2:00 PM PUBLIC HEALTH ASSISTANT Office Visit [facility] Neu[facility] Clinics - [address], [address] [place] [phone] [place] [address] [place], [place] 2034[address] Johnny Penn MD [address] [address]95[address] Scheduled Procedures Name Priority Associated Diagnoses Date/Ti nv ESOPHAGOGASTRODUODENOSCOPY Eosinophilic esophagitis Esophageal dysphagia 03/07/2024 9:00 AM CDT documented as of this encounter Visit Diagnoses Not on filedocumented in this encounter Additional Health Concerns Assessment Noted Time PHQ-9 Depression Total Score: 4 06/20/20 23 8:40 AM PUBLIC HEALTH ASSISTANT documented as of this encounter Care Teams Cessation Systems Outreach Specialist Relationship Specialty Start Date End Date Esha Grimm PA-C [address] [place] [address] PCP - General Family Medicine 05/04/23 Diana Desir, [facility] [address] [place], [place] [address] Pharmacist Pharmacist 04/17/21 Rain Galaviz PA-C [address] [place] [address] [address] [place] [address] Physician Automotive Assembler Dermatology 04/28/21 Tavia Wyatt MD [address] [place] [address] [address] [place] [address] Dermatology 07/14/21 Erica Farrell APRN PROPERTY UNDERWRITER [address] [place] [address] Nurse Practitioner Cardiovascular Disease 09/09/21 Rich Barrett MD [address] [place] 93[address] Physician Ophthalmology 01/21/22 Neil Kent MD 500 [place], [place] [address]75 Dermatology 02/24/22 Diana Desir, [facility] [address] [place] [address] Assigned MTM Pharmacist 04/07/22 Livan Sharif MD [address] 0494[address] Cardiovascular Disease 05/14/22 Catherine Cm MD [address] 505775 Cardiovascular Disease 07/21/22 Valery Veronica, PA-C 909 [place], [place] 510455 Physician Automotive Assembler Dermatology 07/21/22 Brae Quinn APRN PROPERTY UNDERWRITER 500 [place] [address] Nurse Practitioner Dermatology 09/21/22 Brea Quinn APRN PROPERTY UNDERWRITER [address] [place] [address] [place] 107842 Assigned Surgical Provider 10/09/22 [place] [address] [place] [address] 535407 Assigned Musculoskeletal Provider 10/09/22 Alfonso Renteria MD [address] [facility] [address] [place] [address] Assigned Neuroscience Provider 04/02/23 Radha Lomeli APRN PROPERTY UNDERWRITER [address] [facility] [address] [place] [address] Assigned Heart and Vascular Provider 05/28/23 Jelena David OD [address] [facility] [place] [address] Ophthalmology 06/15/23 Esha Grimm PA-C [address] [place] [address] Assigned PCP 07/16/23 Valery Veronica PA-C [address] [place] [address] 948385 Physician Automotive Assembler Dermatology 09/19/23 Rey Tay MD 9 [place], [place] 115125 Gastroenterology 09/20/23 Rocky Zepeda DO [address] [place] [address] 704155 Physician Gastroenterology 09/20/23 Philip Dumont MD [address] [place] [address] 464255 Physician Ophthalmology 09/22/23 Meredith Carrera PA-C 909 [place] [address] Assigned Gastroenterology Provider 11/01/23 Neil Kent MD [address] [place] [address] Dermatology 11/02/23 [place] [address] [place] [address] Neurological Surgery 12/26/23 documented as of this encounter
--- OUTSIDE RECORDS SUMMARY | 2024-02-12 05:43 | XMS_ITS | Encounter Summary ---
Author Organization [place] Address [address] [place] [address] Care Team Providers Care Chain Sales Representative Name Role Phone Thang Diana Mayers [facility] Unavailable [phone] Rain Galaviz PA-C Unavailable Tavia Wyatt MD Unavailable Unavailable Erica Farrell COURT MAGISTRATE REAL ESTATE INSTRUCTOR Unavailable Rich Barrett MD Unavailable Neil Kent MD Unavailable Diana Desir Stanislav [facility] Unavailable [phone] Livan Sharif MD Unavailable Catherine Cm MD Unavailable + Valery Veronica PA-C Unavailable [phone] MAGISTRATE REAL ESTATE INSTRUCTOR Unavailable [phone] MAGISTRATE REAL ESTATE INSTRUCTOR Unavailable Jose Francisco Johnson MD Unavailable Alfonso Renteria MD Unavailable + [phone] Esha Grimm PA-C Primary Care Provider [phone] MAGISTRATE REAL ESTATE INSTRUCTOR Unavailable [phone] Jelena David OD Unavailable Esha Grimm Adam DOWC Unavailable [phone] JeremíasValeryC Unavailable Rey Tay MD Unavailable Rocky Zepeda Unavailable Philip Dumont MD Unavailable [phone] Meredith CarreraC Unavailable Neil Kent MD Unavailable Juan Pablo Emmanuel MD Unavailable [phone] Reason for Referral * Consultation (Priority: 1-2 Weeks) - Pending Review Specialty Diagnoses / Procedures Referred By Qian mayers Referred To Contact Diagnoses Numbness and tingling of upper extremity Ebony Cid APRN REAL ESTATE INSTRUCTOR [address] [place] [address] Referral ID Status Reason Start Date Expiration Date V isits Requested Visits Authorized [id number] Pending Review 01/09/2024 01/08/2025 1 1 Question Answer Reason for Referral: General Neurology Scheduling Instructions: [employer] will call you to coordinate your care as prescribed by your provider. If you don't hear from a asset protection representative within 2 business days, please call . Additional Information: numbness, weakness episodes of the upper extremities, and spreading numbness from the neck into the torso Comments Please be aware that coverage of these services is subject to the terms and limitations of your health insurance plan. Call member services at your health plan with any benefit or coverage questions. [employer] will call you to coordinate your care as prescribed by your provider. If you don't hear from a asset protection representative within 2 business days, please call . Reason for Visit * Reason Onset Date Comments Results 01/09/2024 Cervical and bra in MRIs Encounter Details Date Type Department Care Team (Late st Contact Info) Description 01/09/2024 Telephone [facility] [address] [facility] [address] [place] [address] Ebony Cid, [facility] [address] [place] [address] Results (Cervical and brain MRIs) Social History Tobacco Use Types Packs/Day Years [...] How often do you attend [facility] or jainism services? 1 to 4 [...] Answer Date Recorded PHQ-2 Score 0 10/25/2023 [facility] of Occupat ional Health - Occupational Stress [...] exercise at this level? 30 min 03/10/2023 [place] Depression Scale Answer Date Recorded [place] Depression Score 5 01/14/2021 Last EPDS Self [...] encounter Miscellaneous Notes * Telephone Encounter - Ebony Cid APRN CNP - 01/09/2024 1:08 PM CDT Neuro referral entered * Telephone Encounter - Indu Lamb RN - 01/09/2024 9:45 AM CDT Phone call to patient to review results and provider's recommendations. Results given and explained. Discussed moving forward with the neurology as scheduled for today. Also explained that neurology can review these findings at her appointment today. Stated understanding. Did ask about the 4 areas where there is disc bulging; I know that the symptoms I am having can befrom this. Explained that based on the radiology reading and PSP's review as well as her symptoms,PSP does want her to see neurology for additional work up. Patient does ask for new referral. * Telephone Encounter - Indu Lamb RN - 01/09/2024 9:44 AM CDT ----- Message from Ebony Cid sent at 01/09/2024 8:09 AM CDT ----- Please let Kim know that her brain/cspine imaging is stable compared to 1 yr ago. Radiologist does not feel the spot in the right parietal area is of concern. There is no narrowing around the nerves or around the spinal cord in her cervical spine. The chiari looks stable and she will be followingup with neurosurgery to discuss further. The sclerotic lesion R C4 vertebral body is stable and neurosurgery can decide whether this needs to be monitored in any way. Given these results and the extent of her symptoms, I would recommend following up with neurology for additional workup. I can provide a new referral if needed beyond the referral placed in November. * Addendum Note - Ebony Cid APRN CNP - 01/09/2024 9:44 AM CDT Addended by: EBONY CID on: 01/09/2024 01:08 PM Modules accepted: Orders documented in this encounter Plan of Treatment Upcoming Encounters Date Type Department Care Team (Latest Contact Info) Description 02/14/2024 12:50 PM CDT Therapy Visit [facility] [address] [phone] Rustam Medina, [facility] [address] [place] [address] 03/06/2024 3:00 PM CDT Office Visit [facility] [place] [id number] [place] [address] [address] [place] [phone] Radha Lomeli APRN REAL ESTATE INSTRUCTOR [address] [place] [address] 03/07/2024 9:00 AM CDT Hospital Encounter [address] [phone] Rocky Zepeda DO [address] [place] [address] 03/07/2024 9:00 AM CDT - 03/07/2024 9:30 AM CDT Surgery [address] [phone] Rocky Zepeda DO [address] [place] [address] Esophagoscopy, gastroscopy, duodenoscopy (EGD), combined 06/21/2024 2:00 PM RADAR ENGINEER Office Visit [facility] [place] [address] [facility], [address] [place] [address] [place] [address] [place], [place] [id number] Johnny Penn MD [address] [facility] [place] [id number] Scheduled Procedures Name Priority Associated Diagnoses Date/Ti ak ESOPHAGOGASTRODUODENOSCOPY Eosinophilic esophagitis Esophageal dysphagia 03/07/2024 9:00 AM CDT Scheduled Referrals Name Type Priority Associated Diagnoses Orde r Schedule Adult Neurology Iron Molder Helper Referral Referral Priority: 1-2 Weeks Numbness and tingling of upper extremity Expected: 01/09/2024 (Approximate), Expires: 01/08/2025 documented as of this encounter Visit Diagnoses Diagnosis Numbness and tingling of upper extremity- Primary Eosinophilic esophagitis Esophageal dysphagia Dysphagia, pharyngoesophageal phase documented in this encounter Additional Health Concerns Assessment Noted Time PHQ-9 Depression Total Score: 4 06/20/20 23 8:40 AM RADAR ENGINEER documented as of this encounter Care Teams Chain Sales Representative Relationship Specialty Start Date End Date Esha Grimm PA-C [address] [place] [phone] PCP - General Family Medicine 05/04/23 Diana Desir, [facility] [address] [place] [address] Pharmacist Pharmacist 04/17/21 Rain Galaviz PA-C [address] [place] [address] [address] [place] [id number] Physician Salvage Clerk Dermatology 04/28/21 Tavia Wyatt MD [address] [facility] [address] [place] [facility] [place] [address] Dermatology 07/14/21 Erica Farrell APRN REAL ESTATE INSTRUCTOR [address] [place] [address] Nurse Practitioner Cardiovascular Disease 09/09/21 Rich Barrett MD [address] [facility], [address] [address] Physician Ophthalmology 01/21/22 Neil Kent MD [address] [place] [address] Dermatology 02/24/22 Diana Desir, [facility] [address] [place], [place] [address] Assigned MTM Pharmacist 04/07/22 Livan Sharif MD [address] [place] [address] Cardiovascular Disease 05/14/22 Catherine Cm MD [address] [facility] [address] [place] [address] Cardiovascular Disease 07/21/22 Valery Veronica, PA-C [address] [place] [address]15 Physician Salvage Clerk Dermatology 07/21/22 Brea Quinn APRN REAL ESTATE INSTRUCTOR [address] [place] [address] Nurse Practitioner Dermatology 09/21/22 Brea Quinn APRN REAL ESTATE INSTRUCTOR [address] [place] [address] Assigned Surgical Provider 10/09/22 [place] [address] [facility] [facility] [address] [place] [address] Assigned Musculoskeletal Provider 10/09/22 Alfonso Renteria MD [address] [facility] [address] [place], [place] [address] Assigned Neuroscience Provider 04/02/23 Radha Lomeli APRN REAL ESTATE INSTRUCTOR [address] [facility] [address] [place] [address] Assigned Heart and Vascular Provider 05/28/23 Jelena David OD [address] [facility] [place] [address] Ophthalmology 06/15/23 Esha Grimm PA-C [address] [place] [address] Assigned PCP 07/16/23 Valery Veronica PA-C [address] [place] [address] Physician Salvage Clerk Dermatology 09/19/23 Rey Tay MD [address] [place] [address] MD Gastroenterology 09/20/23 Rocky Zepeda DO [address] [place] [address] Physician Gastroenterology 09/20/23 Philip Dumont MD [address] [place] [address] Physician Ophthalmology 09/22/23 Meredith Carrera PA-C [address] [place] [address]26505 Assigned Gastroenterology Provider 11/01/23 Neil Kent MD [address] [place] [address] [phone] Dermatology 11/02/23 [place] [address] [place] [address] Neurological Surgery 12/26/23 documented as of this encounter
--- OUTSIDE RECORDS SUMMARY | 2024-02-12 05:43 | XMS_ITS | Encounter Summary ---
Author Organization [place] Address [address] [place] [address] Care Team Providers Care Capping Machine Operator Name Role Phone Thang Diana [place] [facility] Unavailable Rain Galaviz PA-C Unavailable Tavia Wyatt MD Unavailable Unavailable Erica Farrell CLINICAL LAB TECHNOLOGIST CONFECTIONERY DROPS MACHINE OPERATOR Unavailable Rich Barrett MD Unavailable Neil Kent MD Unavailable Diana Desir Stanislav [facility] Unavailable [phone] Livan Sharif MD Unavailable Catherine Cm MD Unavailable + Valery Veronica PA-C Unavailable [phone] Brea Quinn CLINICAL LAB TECHNOLOGIST CONFECTIONERY DROPS MACHINE OPERATOR Unavailable Brea Quinn CLINICAL LAB TECHNOLOGIST CONFECTIONERY DROPS MACHINE OPERATOR Unavailable [phone] Jose Francisco Johnson MD Unavailable Alfonso Renteria MD Unavailable + [phone] Esha Grimm PA-C Primary Care Provider Radha Lomeli CLINICAL LAB TECHNOLOGIST CONFECTIONERY DROPS MACHINE OPERATOR Unavailable [phone] Jelena David OD Unavailable Esha GrimmC Unavailable [phone] Valery VeronicaC Unavailable [phone] Rey Tay MD Unavailable Duane Rockyanne STEVENS Unavailable Philip Dumont MD Unavailable [phone] Meredith CarreraC Unavailable [phone] Neil Kent MD Unavailable Juan Pablo Emmanuel MD Unavailable [phone] Encounter Details Date Type Department Care Team [...] do you attend [facility] or mormonism services? 1 to 4 times [...] Answer Date Recorded PHQ-2 Score 0 10/25/2023 [facility] of Occupat ional [facility] - Occupational Stress Questionnaire [...] exercise at this level? 30 min 03/10/2023 [place] Depression Scale Answer Date Recorded [place] Depression Score 5 01/14/2021 Last EPDS Self [...] Description 02/14/2024 12:50 PM CDT Therapy Visit [facility] [address] [address] Rustam Medina, PT [facility] [address] [place] [address] 03/06/2024 3:00 PM CDT Office Visit [facility] [place] [address] [facility] [address] [place] [phone] Radha Lomeli, CLINICAL LAB TECHNOLOGIST CONFECTIONERY DROPS MACHINE OPERATOR [address] [place], [place] [address] 03/07/2024 9:00 AM CDT Hospital Encounter [address] [phone] Rocky Zepeda DO [address] [place], [place] [address] 03/07/2024 9:00 AM CDT - 03/07/2024 9:30 AM CDT Surgery [address] [phone] Rocky Zepeda DO [address] [place] [address] Esophagoscopy, gastroscopy, duodenoscopy (EGD), combined 06/21/2024 2:00 PM FEED BLENDER Office Visit [facility] Neurology [facility] [address] [facility], [address] [place] [address] [place] [address] [place], [place] [phone] Johnny Penn MD [address] [place] [address] Scheduled Procedures Name Priority Associated Diagnoses Date/Ti tn ESOPHAGOGASTRODUODENOSCOPY Eosinophilic esophagitis Esophageal dysphagia 03/07/2024 9:00 AM CDT documented as of this encounter Visit Diagnoses Not on filedocumented in this encounter Additional Health Concerns Assessment Noted Time PHQ-9 Depression Total Score: 4 06/20/20 23 8:40 AM FEED BLENDER documented as of this encounter Care Teams Capping Machine Operator Relationship Specialty Start Date End Date Esha Grimm PA-C [address] [place] [address] PCP - General Family Medicine 05/04/23 Diana Desir, [facility] [address] [facility] [place] [address] Pharmacist Pharmacist 04/17/21 Rain Galaviz PA-C [address] [place] [address] [address] [place] [id number] Physician Identifier Horse Dermatology 04/28/21 Tavia Wyatt MD [address] [place] [address] [address] [place] [address] Dermatology 07/14/21 Erica Farrell APRN CONFECTIONERY DROPS MACHINE OPERATOR [address] [place] [address] Nurse Practitioner Cardiovascular Disease 09/09/21 Rich Barrett MD [address] [facility] [address] [place] [address] Physician Ophthalmology 01/21/22 Neil Kent MD 500 [place] [address] Dermatology 02/24/22 Diana Desir, [facility] [address] [place], [place] 6028[address] Assigned [place] Pharmacist 04/07/22 Livan Sharif MD [address] [place], [place] [address] Cardiovascular Disease 05/14/22 Catherine Cm MD [address] [place], [place] 7[address] Cardiovascular Disease 07/21/22 Valery Veronica PA-C [address] [place], [place] [address] Physician Identifier Horse Dermatology 07/21/22 Brea Quinn APRN CONFECTIONERY DROPS MACHINE OPERATOR [address] [place], [place] [address] Nurse Practitioner Dermatology 09/21/22 Brea Quinn APRN CONFECTIONERY DROPS MACHINE OPERATOR [address] [facility] [address] Assigned Surgical Provider 10/09/22 [place] [address] [place] [address] Assigned Musculoskeletal Provider 10/09/22 Alfonso Renteria MD [address] [facility] [address] [place], [place] [address] Assigned Neuroscience Provider 04/02/23 Radha Lomeli, CLINICAL LAB TECHNOLOGIST CONFECTIONERY DROPS MACHINE OPERATOR [address] [facility] [address] [place], [place] [address] Assigned Heart and Vascular Provider 05/28/23 Jelena David OD [address] [facility] [place] [address] Ophthalmology 06/15/23 Esha Grimm PA-C [address] [place] [phone] Assigned PCP 07/16/23 Valery Veronica PA-C [address] [place] [address] 9[address] Physician Identifier Horse Dermatology 09/19/23 Rey Tay MD [address] [place] [address]10995 Gastroenterology 09/20/23 Rocky Zepeda DO [address] [place] [address] Physician Gastroenterology 09/20/23 Philip Dumont MD [address] [place] [address] Physician Ophthalmology 09/22/23 Meredith Carrera PA-C [address] [place] [address] Assigned Gastroenterology Provider 11/01/23 Neil Kent MD [address] [address] Dermatology 11/02/23 [place] [address] [place] [address] Neurological Surgery 12/26/23 documented as of this encounter
--- OUTSIDE RECORDS SUMMARY | 2024-02-12 05:43 | XMS_ITS | Encounter Summary ---
Author Organization [place] Address [address] [place] [address] Care Team Providers Care Electrical Accessories Assembler Name Role Phone Thang Diana [place] [facility] Unavailable [phone] Rain Galaviz PA-C Unavailable [phone] Tavia yWatt MD Unavailable Unavailable Erica Farrell FEATHER CUTTING MACHINE FEEDER PHARMACY INTERN Unavailable Rich Barrett MD Unavailable Neil Kent MD Unavailable Diana Desir Stanilsav [facility] Unavailable [phone] Livan Sharif MD Unavailable Catherine Cm MD Unavailable + Vaelry Veronica PA-C Unavailable [phone] Brea Quinn FEATHER CUTTING MACHINE FEEDER PHARMACY INTERN Unavailable Brea Quinn FEATHER CUTTING MACHINE FEEDER PHARMACY INTERN Unavailable Jose Francisco Johnson MD Unavailable Alfonso Renteria MD Unavailable + [phone] Esha Grimm PA-C Primary Care Provider Radha Lomeli FEATHER CUTTING MACHINE FEEDER PHARMACY INTERN Unavailable [phone] Jelena David OD Unavailable Jesus Grimmyllincoln Medina PA-C Unavailable [phone] Valery Veronica-C Unavailable Rey Tay MD Unavailable ZepedaEvansximena STEVENS Unavailable Philip Dumont MD Unavailable Meredith Carrera PA-C Unavailable [phone] Neil Kent MD Unavailable Juan Pablo Emmanuel MD Unavailable Reason for Visit * Reason Comments Sore Flu Symptoms Encounter Details Date Type Department Care Team (Late st Contact Info) Description 12/26/2023 9:32 AM CDT - 12/26/2023 10:06 AM CDT Emergency [facility] Emergency Dept [address] [place] [phone] Augustus Kim MD [facility] [address] [place], [place] [phone] Chest tightness Discharge Disposition: Home or Self [...] How often do you attend [facility] or sikhism services? 1 to 4 times [...] Answer Date Recorded PHQ-2 Score 0 10/25/2023 [facility] [place] of Occupat ional Health - Occupational Stress [...] exercise at this level? 30 min 03/10/2023 [place] Depression Scale Answer Date Recorded [place] Depression Score 5 01/14/2021 Last EPDS Self [...] the Xpert Xpress CoV2/Flu/RSV Assay on the Radisys GeneXpert Instrument. This test should be ordered [...] management. This test was validated by the [facility]. These laboratories are certified under the ClinicalLaboratory Improvement Amendments of 1988 (CLIA-88) as qualified to perform high complexity laboratory testing. EKG 12 lead Status: None Result Value Ref Range Systolic Blood Pressure mmHg Diastolic Blood Pressure mmHg Ventricular Rate 65 BPM Atrial Rate 65 BPM [place] Interval 148 ms QRS Duration 90 ms QT 382 ms QTc 397 ms P [place] 65 degrees R AXIS 69 degrees T [place] 60 degrees Interpretation ECG Sinus rhythm Normal ECG When compared with ECG of 07-SEP-2023 18:14, QT has shortened Unconfirmed report - interpretation of this ECG is computer generated - see medical record for final interpretation Confirmed by - EMERGENCY ROOM, PHYSICIAN ([id number]), medical transcription editor Saleem Gomez ([id number]) on 12/26/2023 10:17:45AM Group A Streptococcus PCR Throat Swab Status: Normal Specimen: Throat; Swab Result Value Ref Range Group A strep by PCR Not Detected Not Detected Narrative The Xpert Xpress Strep A test, performed on the Sayduck?? [employer] Systems, is a rapid, qualitative in vitro [...] is negative. There is no evidence of INSURANCE SALES ASSOCIATE, Jose De Jesus angina, or other concerning [...] Chest tightness R07.89 Augustus Kim MD 12/26/23 1604 documented in this encounter Plan of Treatment Upcoming Encounters Date Type Department Care Team (Latest Contact Info) Description 02/14/2024 12:50 PM CDT Therapy Visit [place] [phone] Rustam Medina, [facility] [address] [place] [address] 03/06/2024 3:00 PM CDT Office Visit [facility] Heart [facility] [address] [facility] [address] [place] [phone] Radah Lomeli, FEATHER CUTTING MACHINE FEEDER PHARMACY INTERN [address] [place], [place] [address] 03/07/2024 9:00 AM CDT Hospital Encounter [address] [place] [phone] Rocky Zepeda DO [address] [place], [place] [phone] 03/07/2024 9:00 AM CDT - 03/07/2024 9:30 AM CDT Surgery [address] [place] [address] Rocky Zepeda DO [address] [place], [place] [phone] Esophagoscopy, gastroscopy, duodenoscopy (EGD), combined 06/21/2024 2:00 PM DRAMATIC ARTS HISTORIAN Office Visit [facility] [place] [address] [place] [address], [address] [place] [phone] [place] [address] [place], [place] [address] Johnny Penn MD [address] [place] [address] Scheduled Procedures Name Priority Associated Diagnoses Date/Ti [...] Atrial Rate 65 BPM RADIOLOG Y RESULTS MN Interval 148 ms RADIOLOG Y RESULTS QRS Duration 90 ms RADIOLO GY RESULTS QT 382 ms RADIOLOGY RESULTS QTc 397 ms RADIOLOGY RESULTS P [place] 65 degrees RADIOLOGY RESULTS R AXIS 69 degrees RADIOLOGY RESULTS T [place] 60 degrees RADIOLOGY RESULTS Interpretation ECG Sinus rhythm Normal ECG When compared with ECG of 07-SEP-2023 18:14, QT has shortened Unconfirmed report - interpretation of this ECG is computer generated - see medical record for final interpretation Confirmed by - EMERGENCY ROOM, PHYSICIAN ([id number]), medical transcription editor Saleem Gomez ([id number]) on 12/26/2023 10:17:45 AM RADIOLOGY RESULTS 12/26/2023 9:56 AM CDT 12/26/2023 10:17 AM CDT Augustus Kim MD ECG ORDERABLES RADIOLOGY RESULTS * Group A Streptococcus PCR Throat Swab (12/26/2023 9:02 AM CDT) Group A strep by PCR Not Detected Not Detected 12/26/2023 9:37 AM CDT [facility] Swab STRUCTURE OF ANTERIOR PORTION OF NECK / Unknown Non-blood Collection / Unknown 12/26/2023 9:02 AM CDT 12/26/2023 9:09 AM CDT Narrative LABORATORY - 12/26/2023 9:37 AM CDT The Xpert Xpress Strep A test, performed on the Sayduck?? Instrument Systems, is a rapid, qualitative in [...] [facility] [address] [facility] Lab (1st floor, no room number) [place] [address] * Symptomatic Influenza A/B, RSV, & SARS-CoV2 PCR (COVID-19) Nasopharyngeal (12/26/2023 9:02 AM CDT) [facility] Influenza A PCR Negative Negative 12/26/2023 9:50 [...] the Xpert Xpress CoV2/Flu/RSV Assay on the Pixiflypert Instrument. This test should be ordered for [...] management. This test was validated by the [facility]. These laboratories are certified under the Clinical Laboratory Improvement Amendments of 1988 (CLIA-88) as qualified to perform high complexity laboratory testing. Augustus Kim MD LAB - MICRO GENER AL ORDERABLES [facility] [address] [facility] ([facility], no room number) [place] [address], [facility] documented in this encounter Visit Diagnoses Diagnosis Chest tightness Other chest pain Eosinophilic esophagitis Esophageal dysphagia Dysphagia, pharyngoesophageal phase documented in this encounter Additional Health Concerns Infection Onset Date Last Indicated Resolved Time Rule Out COVID-19 12/26/2023 12/26/2023 12/26/2023 9:50 AM CDT Assessment Noted Time PHQ-9 Depression Total Score: 4 06/20/20 23 8:40 AM DRAMATIC ARTS HISTORIAN documented as of this encounter Care Teams Electrical Accessories Assembler Relationship Specialty Start Date End Date Esha Grimm PA-C [address] [place] [phone] PCP - General Family Medicine 05/04/23 Diana Desir [facility] [address] [place] [address] Pharmacist Pharmacist 04/17/21 Rain Galaviz PA-C [address] [place] [address] [place] [address] Physician Pearl Peller Dermatology 04/28/21 Tavia Wyatt MD [address] [place] [address] [address] [facility] [place] [address] Dermatology 07/14/21 Erica Farrell APRN CNP [address] [place] [address] Nurse Practitioner Cardiovascular Disease 09/09/21 Rich Barrett MD [address] 0[address] Physician Ophthalmology 01/21/22 Neil Kent MD [address] [place] [address] [id number] Dermatology 02/24/22 Diana Desir, [facility] [address] [place], [place] [address] Assigned [place] Pharmacist 04/07/22 Livan Sharif MD [address] [place] [address] Cardiovascular Disease 05/14/22 Catherine Cm MD [address] [place] 5698[address] Cardiovascular Disease 07/21/22 Valery Veronica, PA-C [address] [place] [address]85 Physician Pearl Peller Dermatology 07/21/22 Brea Quinn APRN PHARMACY INTERN [address] [place] [address] Nurse Practitioner Dermatology 09/21/22 Brea Quinn APRN PHARMACY INTERN [address] [place] [address] Assigned Surgical Provider 10/09/22 [place] [address] [facility] [address] [place] [address] Assigned Musculoskeletal Provider 10/09/22 Alfonso Renteria MD [address] [facility] [address] [place], [place] [address] Assigned Neuroscience Provider 04/02/23 Radha Lomeli, [facility] [address] [facility] [address] [place] [address] Assigned Heart and Vascular Provider 05/28/23 Jelena David OD [address] [facility] [place] [address] Ophthalmology 06/15/23 Esha Grimm PA-C [address] [place] [address] Assigned PCP 07/16/23 Valery Veronica PA-C 9 [place] [address] Physician Pearl Peller Dermatology 09/19/23 Rey Tay MD 9 [place] [address] MD Gastroenterology 09/20/23 Rocky Zepeda DO [address] [place] [address] Physician Gastroenterology 09/20/23 Philip Dumont MD [address] [place] [address] Physician Ophthalmology 09/22/23 Meredith Carrera PA-C [address] [place] [address] Assigned Gastroenterology Provider 11/01/23 Neil Kent MD [address] [place] [address] Dermatology 11/02/23 [place] [address] [place] [address] Neurological Surgery 12/26/23 documented as of this encounter
--- OUTSIDE RECORDS SUMMARY | 2024-02-12 05:43 | XMS_ITS | Encounter Summary ---
Author Organization [place] Address [address] [place] [address] Care Team Providers Care P 3 Armament/Ordnance Ima Technician Name Role Phone Thang Diana Mayers [facility] Unavailable Rain Galaviz PA-C Unavailable [phone] Tavia Wyatt MD Unavailable Unavailable Erica Farrell CERTIFIED MEDICAL TRANSCRIPTIONIST AEROSPACE TECHNICIAN Unavailable Rich Barrett MD Unavailable Neil Kent MD Unavailable Diana Desir Stanislav [facility] Unavailable [phone] Livan Sharif MD Unavailable Catherine Cm MD Unavailable + Valery Veronica PA-C Unavailable [phone] Brea Quinn CERTIFIED MEDICAL TRANSCRIPTIONIST AEROSPACE TECHNICIAN Unavailable [phone] Brea Quinn CERTIFIED MEDICAL TRANSCRIPTIONIST AEROSPACE TECHNICIAN Unavailable [phone] Jose Francisco Johnson MD Unavailable Alfonso Renteria MD Unavailable + [phone] Esha Grimm PA-C Primary Care Provider Radha Lomeli CERTIFIED MEDICAL TRANSCRIPTIONIST AEROSPACE TECHNICIAN Unavailable [phone] Jelena David OD Unavailable Esha Grimm Adam PA-C Unavailable [phone] Valery Veronica PA-C Unavailable Rey Tay MD Unavailable ZepedaRocky Unavailable Philip Dumont MD Unavailable [phone] Meredith Carrera PA-C Unavailable Neil Kent MD Unavailable Juan Pablo Emmanuel MD Unavailable [phone] Reason for Referral * Diagnostic Imaging MRI (Routine) - Closed Specialty Diagnoses / Procedures [facility] To Contact Radiology. Diagnoses Abnormal finding on MRI of brain Chiari malformation type I (H) Procedures MR Brain w/o & w Contrast Ebony Cid APRN AEROSPACE TECHNICIAN [address] [place] [address] Referral ID Status Reason Start Date Expiration Date Visits Re quested Visits Authorized [id number] Closed 01/05/2024 01/04/2025 1 1 * Diagnostic Imaging MRI (Routine) - Closed Specialty Diagnoses / Procedures [facility] Referred To Contact Radiology. Diagnoses Chiari malformation type I (H) Numbness and tingling of upper extremity Procedures MR Cervical Spine w/o & w Contrast Ebony Cid APRN AEROSPACE TECHNICIAN [address] [place] [address] Referral ID Status Reason Start Date Expiration Date Visits Re quested Visits Authorized [id number] Closed 01/05/2024 01/04/2025 1 1 Reason for Visit * Diagnostic Imaging MRI (Routine) - Closed Specialty Diagnoses / Procedures Referred By Qian mayers Referred To Contact Radiology. Diagnoses Abnormal finding on MRI of brain Chiari malformation type I (H) Procedures MR Brain w/o & w Contrast Ebony Cid APRN AEROSPACE TECHNICIAN [address] [place] [address] Referral ID Status Reason Start Date Expiration Date Visits Re quested Visits Authorized [id number] Closed 01/05/2024 01/04/2025 1 1 Encounter Details Date Type Department Care Team (Latest Contact Info) Description 01/06/2024 10:53 AM CDT - 01/06/2024 11:59 PM CDT Hospital Encounter [address] [address] Ebony Cid APRN AEROSPACE TECHNICIAN [address] [place] [address] Chiari malformation type I (H); Numbness and [...] Answer Date Recorded PHQ-2 Score 0 10/[facility]/2023 [facility]ational Stress Questionnaire Answer [...] exercise at this level? 30 min 03/10/2023 [place] Depression Scale Answer Date Recorded [place] Depression Score 5 01/14/2021 Last EPDS [...] Description 02/14/2024 12:50 PM CDT Therapy Visit [facility] [address] [place] [phone] Rustam Medina, PT [facility] [address] [place] [address] 03/06/2024 3:00 PM CDT Office Visit [facility] [place] [address] [facility] [address] [place] [phone] Radha Lomeli, CERTIFIED MEDICAL TRANSCRIPTIONIST AEROSPACE TECHNICIAN [address] [place], [place] [address] 03/07/2024 9:00 AM CDT Hospital Encounter [facility] [address] [facility] [address] 5th [place] [address] Rocky Zepeda DO 500 [place], [place] [address] 03/07/2024 9:00 AM CDT - 03/07/2024 9:30 AM CDT Surgery [facility] [address] [facility] [address] 5th [place] [address] Rocky Zepeda, DO [address] [facility] [place] [address] Esophagoscopy, gastroscopy, duodenoscopy (EGD), combined 06/21/2024 2:00 PM CONSTRUCTION ENGINEER Office Visit [facility] [place] [address] [facility], [address] [place] [phone] [place] [address] [place], [place] [address] Johnny Penn MD [address] [facility] [place] [address] Scheduled Procedures Name Priority Associated Diagnoses Date/Ti [...] MR BRAIN W/O and W CONTRAST LOCATION: [facility] DATE: 01/06/2024 INDICATION: numbness tingling [...] MR BRAIN W/O and W CONTRAST LOCATION: [facility] DATE: 01/06/2024 INDICATION: numbness tingling both arms and chest, torso. Recheck [id number] and hx Chiari and right parietal abnormality, [...] at the right lateral aspect of the [id number] body. Ebony Cid APRN AEROSPACE TECHNICIAN IMG MRI ORDERABLES * MR Cervical Spine [...] MR BRAIN W/O and W CONTRAST LOCATION: [facility] DATE: 01/06/2024 INDICATION: numbness tingling [...] MR BRAIN W/O and W CONTRAST LOCATION: [facility] DATE: 01/06/2024 INDICATION: numbness tingling both arms and chest, torso. Recheck [id number] and hx Chiari and right parietal abnormality, [...] at the right lateral aspect of the [id number] body. Ebony Cid APRN AEROSPACE TECHNICIAN IMG MRI ORDERABLES documented in this encounter [...] Score: 4 06/20/20 23 8:40 AM CONSTRUCTION ENGINEER documented as of this encounter Care Teams P 3 Armament/Ordnance Ima Technician Relationship Specialty Start Date End Date Esha Grimm PA-C [address] [place] [phone] PCP - General Family Medicine 05/04/23 Diana Desir, [facility] [address] [place], [place] [phone] Pharmacist Pharmacist 04/17/21 Rain Galaviz PA-C [address] [place] [address] [address] [place] [address] Physician Mold Builder Dermatology 04/28/21 Tavia Wyatt MD [address] [place] [address] [address] [place] [address] Dermatology 07/14/21 Erica Farrell APRN AEROSPACE TECHNICIAN [address] [facility] [address] [place] [address] Nurse Practitioner Cardiovascular Disease 09/09/21 Rich aBrrett MD [address] [facility] [address] [place], [place] [address] Physician Ophthalmology 01/21/22 Neil Kent MD [address] [place] [address] Dermatology 02/24/22 Diana Desir, [facility] [address] [place] [address] Assigned MTM Pharmacist 04/07/22 Livan Sharif MD [address], [facility] [place], [place] [address] Cardiovascular Disease 05/14/22 Catherine Cm MD [address] [facility] [place] [address] Cardiovascular Disease 07/21/22 Valery Veronica, PA-C [address] [place] [address] Physician Mold Builder Dermatology 07/21/22 Brea Quinn APRN AEROSPACE TECHNICIAN 500 [place] [address] Nurse Practitioner Dermatology 09/21/22 Brea Quinn APRN AEROSPACE TECHNICIAN [address] [place] [address] Assigned Surgical Provider 10/09/22 [place] [address] [address] Assigned Musculoskeletal Provider 10/09/22 Alfonso Renteria MD [address] [facility] [address] [place] [address] Assigned Neuroscience Provider 04/02/23 Radha Lomeli APRN AEROSPACE TECHNICIAN [address] [place] [address] Assigned Heart and Vascular Provider 05/28/23 Jelena David OD [address] [place] [address] MD Ophthalmology 06/15/23 Esha Grimm PA-C [address] [place] [phone] Assigned PCP 07/16/23 Valery Veronica PA-C [address] [place] [address] 971085 Physician Mold Builder Dermatology 09/19/23 Rey Tay MD [address] [place] [address]185 Gastroenterology 09/20/23 Rocky Zepeda DO [address] [place] [address] 052305 Physician Gastroenterology 09/20/23 Philip Dumont MD [address] [place] [address] 004785 Physician Ophthalmology 09/22/23 Meredith Carrera PA-C [address] [place] [address] 790135 Assigned Gastroenterology Provider 11/01/23 Neil Kent MD [address] [place] [address] Dermatology 11/02/23 [place] [address] [place] [address] Neurological Surgery 12/26/23 documented as of this encounter
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
--- OUTSIDE RECORDS SUMMARY | 2024-02-12 05:44 | XMS_ITS | Encounter Summary ---
Author Organization [place] Address [address] [place] [address] Care Team Providers Care Credit Advisor Name Role Phone Thang Diana [place] [facility] Unavailable Rain Galaviz PA-C Unavailable Tavia Wyatt MD Unavailable Unavailable Erica Farrell FINANCIAL SERVICES REPRESENTATIVE VP PROJECT Unavailable Rich Barrett MD Unavailable Neil Kent MD Unavailable Diana Desir Stanislav [facility] Unavailable [phone] Livan Sharif MD Unavailable Catherine Cm MD Unavailable + Valery Veronica PA-C Unavailable [phone] Brea Quinn FINANCIAL SERVICES REPRESENTATIVE VP PROJECT Unavailable Brea Quinn FINANCIAL SERVICES REPRESENTATIVE VP PROJECT Unavailable Jose Francisco Johnson MD Unavailable Alfonso Renteria MD Unavailable + [phone] Esha Grimm PA-C Primary Care Provider Radha Lomeli FINANCIAL SERVICES REPRESENTATIVE VP PROJECT Unavailable Jelena David OD Unavailable Esha Grimm PA-C Unavailable [phone] Valery VeronicaC Unavailable [phone] Rey Tay MD Unavailable Rocky Zepeda Unavailable Philip Dumont MD Unavailable Meredith Carrera-C Unavailable Neil Kent MD Unavailable Reason for Visit * Reason Onset Date Comments Refill Request 11/22/2023 metoprolol Encounter Details Date Type Department Care Team (Late st Contact Info) Description 11/22/2023 Refill [facility] [address] [facility] [address] [place] [address] Radha Lomeli, FINANCIAL SERVICES REPRESENTATIVE VP PROJECT [address] [place], [place] [address] Refill Request (metoprolol) Social History Tobacco Use [...] often do you attend chur ch or latter day services? 1 to 4 [...] Answer Date Recorded PHQ-2 Score 0 10/25/2023 [facility] of Occupat ional [...] at this level? 30 min 03/10/2023 [place] Depression Scale Answer Date Recorded [place] Depression Score 5 01/14/2021 Last EPDS Self [...] Fish, RN - 11/22/2023 4:11 PM CDT [facility] Cardiology Refill Guideline reviewed. Medication meets criteria for refill. documented in this encounter Plan of Treatment Upcoming Encounters Date Type Department Care Team (Latest Contact Info) Description 02/14/2024 12:50 PM CDT Therapy Visit [facility] [place] [address] [place] [phone] Rustam Medina, PT [facility] [address] [place] [address] 03/06/2024 3:00 PM CDT Office Visit [facility] [place] [address] [facility] [address] [place] [address] Radha Lomeli, FINANCIAL SERVICES REPRESENTATIVE VP PROJECT [address] [place] [id number] 03/07/2024 9:00 AM CDT Hospital Encounter [facility] [address] [facility] 5th [place] [phone] Rocky Zepeda DO 500 [place], [place] [address] 03/07/2024 9:00 AM CDT - 03/07/2024 9:30 AM CDT Surgery [facility] [address] [facility] 5th [place] [phone] Rocky Zepeda DO 500 [place], [place] 124095 Esophagoscopy, gastroscopy, duodenoscopy (EGD), combined 06/21/2024 2:00 PM FUMIGATOR AND STERILIZER Office Visit [facility] [place] [address] [place] [address], [address] [place] [phone] [place] [address] [place] [address] Johnny Penn MD [address] [place] [address] Scheduled Procedures Name Priority Associated Diagnoses Date/Ti ne ESOPHAGOGASTRODUODENOSCOPY Eosinophilic esophagitis Esophageal dysphagia 03/07/2024 9:00 AM CDT documented as of this encounter Visit Diagnoses Diagnosis Palpitations Eosinophilic esophagitis Esophageal dysphagia Dysphagia, pharyngoesophageal phase documented in this encounter Additional Health Concerns Assessment Noted Time PHQ-9 Depression Total Score: 4 06/20/20 23 8:40 AM FUMIGATOR AND STERILIZER documented as of this encounter Care Teams Credit Advisor Relationship Specialty Start Date End Date Esha Grimm PA-C [address] [place] [phone] PCP - General Family Medicine 05/04/23 Diana Desir, [facility] [address] [place] [address] Pharmacist Pharmacist 04/17/21 Rain Galaviz PA-C [address] [place] [address] [address] [place] [address] Physician Steam Shovel Operator Dermatology 04/28/21 Tavia Wyatt MD [address] [place] [address] [address] [place] [address] Dermatology 07/14/21 Erica Farrell APRN VP PROJECT [address] [place] [address] Nurse Practitioner Cardiovascular Disease 09/09/21 Rich Barrett MD 516 [facility] 9A [place], [place] 09[address] Physician Ophthalmology 01/21/22 Neil Kent MD 500 [place], [place] [phone] Dermatology 02/24/22 Diana Desir, [facility] [address] [place] [address] Assigned MTM Pharmacist 04/07/22 Livan Sharif MD [address] [place] [address] Cardiovascular Disease 05/14/22 Catherine Cm MD 6405 [facility] [address] [place] [address] Cardiovascular Disease 07/21/22 Valery Veronica PA-C 909 [place], [place] 119[address] Physician Steam Shovel Operator Dermatology 07/21/22 Brea Quinn APRN VP PROJECT 500 [place], [place] 813[address] Nurse Practitioner Dermatology 09/21/22 Brea Quinn APRN VP PROJECT 6401 [place], [place] 943272 Assigned Surgical Provider 10/09/22 [place] [address] [place] [address] Assigned Musculoskeletal Provider 10/09/22 Alfonso Renteria MD 5775 [facility] 200 [place], [place] 979216 Assigned Neuroscience Provider 04/02/23 Radha Lomeli APRN VP PROJECT [address] [facility] [address] [place] [address] Assigned Heart and Vascular Provider 05/28/23 Jelena David OD 3305 [facility] [place] [address] Ophthalmology 06/15/23 Esha Grimm PA-C [address] [place] [address] Assigned PCP 07/16/23 Valery Veronica PA-C [address] [place] [address] Physician Steam Shovel Operator Dermatology 09/19/23 Rey Tay MD [address] [place] [address] MD Gastroenterology 09/20/23 Rocky Zepeda DO [address] [place] [address] Physician Gastroenterology 09/20/23 Philip Dumont MD [address] [place] [address] Physician Ophthalmology 09/22/23 Meredith Carrera PA-C [address] [place] [address] Assigned Gastroenterology Provider 11/01/23 Neil Kent MD [address] [place] [address] Dermatology 11/02/23 documented as of this encounter
--- OUTSIDE RECORDS SUMMARY | 2024-02-12 05:44 | XMS_ITS | Encounter Summary ---
Author Organization [place] Address [address] [place] [address] Care Team Providers Care Communications Equipment Operator Name Role Phone Thang Diana [place] [facility] Unavailable [phone] Rain Galaviz PA-C Unavailable Tavia Wyatt MD Unavailable Unavailable Erica Farrell GUILLOTINE OPERATOR BEHAVIORAL SCIENCE CHAIR Unavailable Rich Barrett MD Unavailable Neil Kent MD Unavailable Diana Desir Stanislav [facility] Unavailable [phone] Livan Sharif MD Unavailable Catherine Cm MD Unavailable + Valery Veronica PA-C Unavailable [phone] Brea Quinn GUILLOTINE OPERATOR BEHAVIORAL SCIENCE CHAIR Unavailable Brea Quinn GUILLOTINE OPERATOR BEHAVIORAL SCIENCE CHAIR Unavailable Jose Francisco Johnson MD Unavailable Alfonso Renteria MD Unavailable + [phone] Esha Grimm PA-C Primary Care Provider [phone] Radha Lomeli GUILLOTINE OPERATOR BEHAVIORAL SCIENCE CHAIR Unavailable [phone] Jelena David OD Unavailable Esha GrimmC Unavailable [phone] Valery VeronicaC Unavailable Rey Tay MD Unavailable ZepedaRocky Unavailable Philip Dumont MD Unavailable Meredith CarreraC Unavailable Neil Kent MD Unavailable Encounter Details Date Type Department Care Team (Late st Contact Info) Description 11/29/[address] [facility] [address] [place] [phone] Esah Grimm PA-C [id number] [place] [address] Social History Tobacco Use Types Packs/Day [...] often do you attend chur ch or nondenominational services? 1 to 4 times per year [...] 0 10/25/2023 [facility] - Occupational [...] exercise at this level? 30 min 03/10/2023 [place] Depression Scale Answer Date Recorded [place] Depression Score 5 01/14/2021 Last EPDS Self [...] Description 02/14/2024 12:50 PM CDT Therapy Visit [facility] [place] [address] [place] [phone] Rustam Medina, PT [facility] [address] [place] [address] 03/06/2024 3:00 PM CDT Office Visit [facility] [place] [address] [place] [address] [address] [place] [phone] Radha Lomeli, GUILLOTINE OPERATOR BEHAVIORAL SCIENCE CHAIR [address] [place] [address] 03/07/2024 9:00 AM CDT Hospital Encounter [facility] 909 [facility] [address] 5th [place] [address] Rocky Zepeda DO 500 [place], [place] [address] 03/07/2024 9:00 AM CDT - 03/07/2024 9:30 AM CDT Surgery [facility] 909 [facility] [address] 5th [place] [phone] Rocky Zepeda, 500 [place], [place] 4079[address] Esophagoscopy, gastroscopy, duodenoscopy (EGD), combined 06/21/2024 2:00 PM WIRELESS SALES REPRESENTATIVE Office Visit [facility] [place] 6545 [facility], [address] [place] [address] [place] [address] [place] [address] Johnny Penn MD [address] [place] [address] Scheduled Procedures Name Priority Associated Diagnoses Date/Ti sd ESOPHAGOGASTRODUODENOSCOPY Eosinophilic esophagitis Esophageal dysphagia 03/07/2024 9:00 AM CDT documented as of this encounter Visit Diagnoses Not on filedocumented in this encounter Additional Health Concerns Assessment Noted Time PHQ-9 Depression Total Score: 4 06/20/20 23 8:40 AM WIRELESS SALES REPRESENTATIVE documented as of this encounter Care Teams Communications Equipment Operator Relationship Specialty Start Date End Date Esha Grimm PA-C [address] [place] [phone] PCP - General Family Medicine 05/04/23 Diana Desir, [facility] [address] [place] [address] Pharmacist Pharmacist 04/17/21 Rain Galaviz PA-C [address] [place] [address] [address] [place] [id number] Physician Interior Plant Caretaker Dermatology 04/28/21 Tavia Wyatt MD [address] [place] [address] [address] [facility] [place] [address] Dermatology 07/14/21 Erica Farrell APRN BEHAVIORAL SCIENCE CHAIR [address] [place] [address] Nurse Practitioner Cardiovascular Disease 09/09/21 Rich Barrett MD [address] 8855[address] Physician Ophthalmology 01/21/22 Neil Kent MD [address] [place] [address] 802275 Dermatology 02/24/22 Diana Desir, [facility] 3033 [place], [place] 146536 Assigned [place] Pharmacist 04/07/22 Livan Sharif MD [address] [place] 345615 Cardiovascular Disease 05/14/22 Catherine Cm MD [address] [place] 148715 Cardiovascular Disease 07/21/22 Valery Veronica, PA-C 909 [place], [place] 441075 Physician Interior Plant Caretaker Dermatology 07/21/22 Brea Quinn APRN BEHAVIORAL SCIENCE CHAIR 500 [place] [address] Nurse Practitioner Dermatology 09/21/22 Brea Quinn APRN BEHAVIORAL SCIENCE CHAIR 6401 [place] [address] Assigned Surgical Provider 10/09/22 [place] [address] [place] [facility] 300 [place] [address] Assigned Musculoskeletal Provider 10/09/22 Alfonso Renteria MD 5775 [facility] 200 [place], [place] 437986 Assigned Neuroscience Provider 04/02/23 Radha Lomeli APRN BEHAVIORAL SCIENCE CHAIR 6405 [facility] [address] [place] [address] Assigned Heart and Vascular Provider 05/28/23 Jelena David OD [address] [facility] [place] [address] Ophthalmology 06/15/23 Esha Grimm PA-C [address] [place] [address] Assigned PCP 07/16/23 Valery Veronica PA-C 9 [place] [address] Physician Interior Plant Caretaker Dermatology 09/19/23 Rey Tay MD 9 [place] [address] Gastroenterology 09/20/23 Rocky Zepeda DO [address] [place] [address] Physician Gastroenterology 09/20/23 Philip Dumont MD [address] [place] [address] Physician Ophthalmology 09/22/23 Meredith Carrera PA-C [address] [place] [address] Assigned Gastroenterology Provider 11/01/23 Neil Kent MD [address] [place] [address] Dermatology 11/02/23 documented as of this encounter
--- OUTSIDE RECORDS SUMMARY | 2024-02-12 05:44 | XMS_ITS | Encounter Summary ---
Author Organization [place] Address [address] [place] [address] Care Team Providers Care Airplane Gastank Liner Assembler Name Role Phone Thang Diana [place] [facility] Unavailable Rain Galaviz PA-C Unavailable Tavia Wyatt MD Unavailable Unavailable Erica Farrell RADIOLOGY AIDE TONE CABINET ASSEMBLER Unavailable Rich Barrett MD Unavailable Neil Kent MD Unavailable Diana Desir Stanislav [facility] Unavailable [phone] Livan Sharif MD Unavailable Catherine Cm MD Unavailable + Valery Veronica PA-C Unavailable [phone] Brea Quinn RADIOLOGY AIDE TONE CABINET ASSEMBLER Unavailable [phone] Brea Quinn RADIOLOGY AIDE TONE CABINET ASSEMBLER Unavailable Jose Francisco Johnson MD Unavailable Alfonso Renteria MD Unavailable + [phone] Esha Grimm PA-C Primary Care Provider Radha Lomeli RADIOLOGY AIDE TONE CABINET ASSEMBLER Unavailable [phone] Jelena David OD Unavailable [phone] Esha Grimm PA-C Unavailable Valery Veronica PA-C [...] Genny Hyman PA-C [facility] 57[address] [facility] [address] [place] [address] Referral ID Status Reason Start Date Expiration Date V isits Requested Visits Authorized [id number] Pending Review 11/29/2023 11/28/2024 1 1 Question Answer Reason for Referral: General Neurology Scheduling Instructions: [facility] to [facility] your care as prescribed by your provider. If you don't hear from a sales and marketing representative within 2 business days, please [...] provider. If you don't hear from a sales and marketing representative within 2 business days, please call . Encounter Details Date Type Department Care Team (Late st Contact Info) Description 11/29/2023 Telephone [facility] 5775 [facility], [address] [place] [phone] Genny Hyman PA-C [facility] 57[address] [facility] [address] [place] [address] Social History Tobacco Use Types Packs/Day Years [...] 03/10/2023 How often do you attend [facility] or mu-ism services? 1 to 4 [...] Answer Date Recorded PHQ-2 Score 0 10/25/2023 [facility] Occupat ional Health - Occupational Stress [...] exercise at this level? 30 min 03/10/2023 [place] Depression Scale Answer Date Recorded [place] Depression Score 5 01/14/2021 Last EPDS Self [...] Description 02/14/2024 12:50 PM CDT Therapy Visit [facility] [address] [address] Rustam Medina, PT [facility] [address] [place] [address] 03/06/2024 3:00 PM CDT Office Visit [facility] [address] [place] [phone] Radha Lomeli, RADIOLOGY AIDE TONE CABINET ASSEMBLER [address] [facility] [address] [place] [address] 03/07/2024 9:00 AM CDT Hospital Encounter [address] 5th [place] [phone] Rocky Zepeda DO 500 [place] [address] 03/07/2024 9:00 AM CDT - 03/07/2024 9:30 AM CDT Surgery [address] 5th [place] [phone] Rocky Zepeda, DO 500 [place], [place] [address] Esophagoscopy, gastroscopy, duodenoscopy (EGD), combined 06/21/2024 2:00 PM HANDSTITCHING MACHINE COLLAR FELLER Office Visit [facility] [place] 6545 [facility], [address] [place] [address] [place] [address] [place] [address] Johnny Penn MD [address] [place] [id number] Scheduled Procedures Name Priority Associated Diagnoses Date/Ti nj ESOPHAGOGASTRODUODENOSCOPY Eosinophilic esophagitis Esophageal dysphagia 03/07/2024 9:00 AM CDT Scheduled Referrals Name Type Priority Associated Diagnoses Orde r Schedule Adult Neurology Safety Officer Referral Referral Routine: Next available opening Chiari [...] Total Score: 4 06/20/20 23 8:40 AM HANDSTITCHING MACHINE COLLAR FELLER documented as of this encounter Care Teams Airplane Gastank Liner Assembler Relationship Specialty Start Date End Date Esha Grimm PA-C [address] [place] [phone] PCP - General Family Medicine 05/04/23 Diana Desir, [facility] 3033 [place] [address] Pharmacist Pharmacist 04/17/21 Rain Galaviz PA-C [address] [place] [address] [address] [place] [address] Physician Security Systems Sales Representative Dermatology 04/28/21 Tavia Wyatt MD [address] [place] [address] [place] [address] Dermatology 07/14/21 Erica Farrell APRN TONE CABINET ASSEMBLER [address] [place] [address] Nurse Practitioner Cardiovascular Disease 09/09/21 Rich Barrett MD [address] [place] [address] 9[address] [place], [place] [address] Physician Ophthalmology 01/21/22 Neil Kent MD 500 [place], [place] 312945 Dermatology 02/24/22 Diana Desir, [facility] 3033 [place] [address] Assigned MTM Pharmacist 04/07/22 Livan Sharif MD [address] [address] [place] 490935 Cardiovascular Disease 05/14/22 Catherine Cm MD [address] [place] [address] [place] [address] Cardiovascular Disease 07/21/22 Valery Veronica PA-C 909 [place] [address] Physician Security Systems Sales Representative Dermatology 07/21/22 Brea Quinn APRN TONE CABINET ASSEMBLER [address] [place], [place] [address] Nurse Practitioner Dermatology 09/21/22 Brea Quinn APRN TONE CABINET ASSEMBLER [facility]1 [place], [place] 418[address] Assigned Surgical Provider 10/09/22 [place] [address] [address] [facility] 300 [place] [address] Assigned Musculoskeletal Provider 10/09/22 Alfonos Renteria MD [address] [facility] 200 [place], [place] [phone] Assigned Neuroscience Provider 04/02/23 Radha Lomeli APRN TONE CABINET ASSEMBLER 6405 [facility] [address] [place] [address] Assigned Heart and Vascular Provider 05/28/23 Jelena David OD [address] [facility] [place] [address] Ophthalmology 06/15/23 Esha Grimm PA-C [address] [place] [address] Assigned PCP 07/16/23 Valery Veronica PA-C [address] [place] [address] Physician Security Systems Sales Representative Dermatology 09/19/23 Rey Tay MD [address] [place] [address] Gastroenterology 09/20/23 Rocky Zepeda DO [address] [place] [address] Physician Gastroenterology 09/20/23 Philip Dumont MD [address] [place] [address] Physician Ophthalmology 09/22/23 Meredith Carrera PA-C [address] [place] [address] Assigned Gastroenterology Provider 11/01/23 Neil Kent MD [address] [place] [address] Dermatology 11/02/23 documented as of this encounter
--- OUTSIDE RECORDS SUMMARY | 2024-02-12 05:44 | XMS_ITS | Encounter Summary ---
Author Organization [place] Address [address] [place] [address] Care Team Providers Care Grants Analyst Name Role Phone Thang Diana [place] [facility] Unavailable Rain Galaviz PA-C Unavailable Tavia Wyatt MD Unavailable Unavailable Erica Farrell EDGER HAND CLOTHING WORKER Unavailable Rich Barrett MD Unavailable Neil Kent MD Unavailable Diana Desir Stanislav [facility] Unavailable [phone] Livan Sharif MD Unavailable Catherine Cm MD Unavailable + Valery Veronica PA-C Unavailable [phone] Brea Quinn EDGER HAND CLOTHING WORKER Unavailable Brea Quinn EDGER HAND CLOTHING WORKER Unavailable Jose Francisco Johnson MD Unavailable Alfonso Renteria MD Unavailable + [phone] Esha Grimm PA-C Primary Care Provider Radha Lomeli EDGER HAND CLOTHING WORKER Unavailable [phone] Jelena David OD Unavailable [phone] Alfa Esha M PA-C Unavailable [phone] Valery Veronica PA-C Unavailable [phone] Rey Tay MD Unavailable ZepedaEvansximena STEVENS Unavailable Philip Dumont MD Unavailable [phone] Meredith Carrera PA-C Unavailable [phone] Neil Kent MD Unavailable Juan Pablo Emmanuel MD Unavailable Reason for Visit * Reason Onset Date Comments Appointment 12/02/2023 Clarification Encounter Details Date Type Department Care Team (Late st Contact Info) Description 12/02/2023 Telephone [facility] [address] [facility] [address] [place] [address] Radha Lomeli E, EDGER HAND [facility] [address] [facility] [address] [place] [address] Appointment (Clarification) Social History Tobacco Use [...] you attend chur ch or advent services? 1 to 4 times per year [...] Answer Date Recorded PHQ-2 Score 0 10/25/2023 [facility] of Occupat [...] exercise at this level? 30 min 03/10/2023 [place] Depression Scale Answer Date Recorded [place] Depression Score 5 01/14/2021 Last EPDS Self [...] Questions pertaining to OV's scheduled. Carley ZABALA [facility] * Telephone Encounter - Janett Fragoso - 12/02/2023 8:56 AM CDT [facility] Call Center Phone Message May [...] Visit [facility] Rehabilitation Services [place] [address] [place] [phone] Rustam Medina, [facility] [address] [place] [address] 03/06/2024 3:00 PM CDT Office Visit [facility] [place] [address] [facility] [address] [place] [phone] Radha Lomeli, EDGER HAND CLOTHING WORKER [address] [place] [id number] 03/07/2024 9:00 AM CDT Hospital Encounter [facility] 909 [facility] 5th [place] [phone] Rocky Zepeda DO 500 [place], [place] [address] 03/07/2024 9:00 AM CDT - 03/07/2024 9:30 AM CDT Surgery [facility] 9[address] [facility] 5th [place] [phone] Rocky Zepeda DO 500 [place], [place] [address]44[address] Esophagoscopy, gastroscopy, duodenoscopy (EGD), combined 06/21/2024 2:00 PM NUMERICAL CONTROL ROUTER OPERATOR Office Visit [facility] [place] [address] [facility], [address] [place] [phone] [place] [address] [place] [address] Johnny Penn MD [address] [id number] Scheduled Procedures Name Priority Associated Diagnoses Date/Ti ma ESOPHAGOGASTRODUODENOSCOPY Eosinophilic esophagitis Esophageal dysphagia 03/07/2024 9:00 AM CDT documented as of this encounter Visit Diagnoses Not on filedocumented in this encounter Additional Health Concerns Infection Onset Date Last Indicated Resolved Time Rule Out COVID-19 12/26/2023 12/26/2023 12/26/2023 9:50 AM CDT Assessment Noted Time PHQ-9 Depression Total Score: 4 06/20/20 8:40 AM NUMERICAL CONTROL ROUTER OPERATOR documented as of this encounter Care Teams Grants Analyst Relationship Specialty Start Date End Date Esha Grimm PA-C [address] [place] [phone] PCP - General Family Medicine 05/04/23 Diana Desir, [facility] [address] [place], [place] [address] Pharmacist Pharmacist 04/17/21 Rain Galaviz PA-C [address] [place] [address] [address] [place] [place] [address] Physician Reading Aide Dermatology 04/28/21 Tavia Wyatt MD [address] [place] [address] [address] [facility] [place] [place] [address] Dermatology 07/14/21 Erica Farrell APRN CLOTHING WORKER [address] [facility] [address] [place], [place] [address] Nurse Practitioner Cardiovascular Disease 09/09/21 Rich Barrett MD 516 [facility] 9[address] [place], [place] [address] Physician Ophthalmology 01/21/22 Neil Kent MD 500 [place] [address] Dermatology 02/24/22 Diana Desir, [facility] 3033 [place] [address] Assigned [place] Pharmacist 04/07/22 Livan Sharif MD [address] [facility] [address] [facility] [address] [place], [place] 505735 Cardiovascular Disease 05/14/22 Catherine Cm MD [address] [place] 37[address]35 Cardiovascular Disease 07/21/22 Valery Veronica, PA-C 909 [place], [place] 2232[address] Physician Reading Aide Dermatology 07/21/22 Brea Quinn APRN CLOTHING WORKER 500 [place] [address] Nurse Practitioner Dermatology 09/21/22 Bera Quinn APRN CLOTHING WORKER 6401 [place] [address] Assigned Surgical Provider 10/09/22 [place] [address] [address] Assigned Musculoskeletal Provider 10/09/22 Alfonso Renteria MD [address] [facility] [address] [place] [address] Assigned Neuroscience Provider 04/02/23 Radha Lomeli APRN CLOTHING WORKER [address] [place] [address] Assigned Heart and Vascular Provider 05/28/23 Jelena David OD [address] [place] [place] [address] MD Ophthalmology 06/15/23 Esah Grimm PA-C [address] [place] [phone] Assigned PCP 07/16/23 Valery Veronica PA-C [address] [place] [address] Physician Reading Aide Dermatology 09/19/23 Rey Tay MD [address] [place] [address] 229305 Gastroenterology 09/20/23 Rocky Zepeda DO [address] [place] [address] 040385 Physician Gastroenterology 09/20/23 Philip Dumont MD [address] [place] [address]235 Physician Ophthalmology 09/22/23 Meredith Carrera PA-C [address] [place] [address] 084055 Assigned Gastroenterology Provider 11/01/23 Neil Kent MD [address] [place] [address] Dermatology 11/02/23 [place] [address] [place] [address] Neurological Surgery 12/26/23 documented as of this encounter
--- OUTSIDE RECORDS SUMMARY | 2024-02-12 05:44 | XMS_ITS | Encounter Summary ---
Author Organization [place] Address [address] [place] [address] Care Team Providers Care Diplomatic Officer Name Role Phone Thang Diana [place] [facility] Unavailable Rain Galaviz PA-C Unavailable Tavia Wyatt MD Unavailable Unavailable Erica Farrell DRILLING INSPECTOR SECURITY SOLUTIONS ENGINEER Unavailable Rich Barrett MD Unavailable Neil Kent MD Unavailable Diana Desir Stanislav [facility] Unavailable [phone] Livan Sharif MD Unavailable Catherine Cm MD Unavailable + Valery Veronica PA-C Unavailable [phone] Brea Quinn DRILLING INSPECTOR SECURITY SOLUTIONS ENGINEER Unavailable Brea Quinn DRILLING INSPECTOR SECURITY SOLUTIONS ENGINEER Unavailable Jose Francisco Johnson MD Unavailable Alfonso Renteria MD Unavailable + [phone] Esha Grimm PA-C Primary Care Provider [phone] Radha Lomeli DRILLING INSPECTOR SECURITY SOLUTIONS ENGINEER Unavailable [phone] Jelena David OD Unavailable [phone] Wicho Grimmlincoln Medina PA-C Unavailable Valery VeronicaC Unavailable Rey Tay MD Unavailable Rocky Zepeda DO Unavailable Philip Dumont MD Unavailable Meredith Carrera PA-C Unavailable Neil Kent MD Unavailable Reason for Visit * Diagnostic Imaging XR (Routine) - Pending Review Specialty Diagnoses / Procedures Referred By Qian mayers Referred To Contact Radiology. Diagnoses Chest tightness SOB (shortness of breath) Procedures XR Chest 2 Views Jaret Cortez APRN SECURITY SOLUTIONS ENGINEER [address] [place] [address] Referral ID Status Reason Start Date Expiration Date V isits Requested Visits Authorized [id number] Pending Review 12/21/2023 12/20/2024 1 1 Encounter Details Date Type Department Care Team (Latest Contact Info) Description 12/21/2023 1:20 PM CDT Ancillary Procedure [facility] [address] [place] [phone] Jaret Cortez APRN SECURITY SOLUTIONS ENGINEER [address] [place] [address] Chest tightness; SOB (shortness of breath) Social [...] How often do you attend chur or restorationist services? 1 to 4 times [...] Answer Date Recorded PHQ-2 Score 0 10/25/2023 [facility] - Occupational Stress Questionnaire [...] exercise at this level? 30 min 03/10/2023 [place] Depression Scale Answer Date Recorded [place] Depression Score 5 01/14/2021 Last EPDS Self [...] Description 02/14/2024 12:50 PM CDT Therapy Visit [facility] [place] [address] [place] [phone] Rustam Medina, PT [facility] [address] [place] [address] 03/06/2024 3:00 PM CDT Office Visit [facility] [place] [address] [place] [address] [address] [place] [address] Radha Lomeli, DRILLING INSPECTOR SECURITY SOLUTIONS ENGINEER [address] [place] [address] 03/07/2024 9:00 AM CDT Hospital Encounter [facility] [place] 909 [facility] 5th [place] [phone] Rocky Zepeda, DO 500 [place], [place] 762275 03/07/2024 9:00 AM CDT - 03/07/2024 9:30 AM CDT Surgery [facility] 909 [facility] 5th [place] [phone] Rocky Zepeda, DO 500 [place], [place] [phone] Esophagoscopy, gastroscopy, duodenoscopy (EGD), combined 06/21/2024 2:00 PM VERTICAL PUNCH OPERATOR Office Visit [facility] Neurology [facility] - [place] [address] [facility], [address] [place] [phone] [place] [address] [place], [place] [address] Johnny Penn MD [address] [facility] [place] [id number] Scheduled Procedures Name Priority Associated Diagnoses Date/Ti [...] is not enlarged. Pulmonary vasculature is unremarkable. CHIID SCHWARTZ MD Bauj Sissy Cortez DRILLING INSPECTOR SECURITY SOLUTIONS ENGINEER IMG DIAGNOSTIC IMAGING ORDERABLES documented in this encounter Visit Diagnoses Diagnosis Chest tightness Other chest pain SOB (shortness of breath) Shortness of breath Eosinophilic esophagitis Esophageal dysphagia Dysphagia, pharyngoesophageal phase documented in this encounter Additional Health Concerns Assessment Noted Time PHQ-9 Depression Total Score: 4 06/20/20 23 8:40 AM VERTICAL PUNCH OPERATOR documented as of this encounter Care Teams Diplomatic Officer Relationship Specialty Start Date End Date Esha Grimm PA-C [address] [place] [address] PCP - General Family Medicine 05/04/23 Diana Desir [facility] [address] [facility] [place] [address] Pharmacist Pharmacist 04/17/21 Rain Galaviz PA-C [address] [place] [address] [place] [address] Physician Overlock Sleeve Setter Dermatology 04/28/21 Tavia Wyatt MD [address] [place] [address] DR RA[address] [facility] [place] [address] Dermatology 07/14/21 Erica Farrell APRN SECURITY SOLUTIONS ENGINEER [address] [place] [address] Nurse Practitioner Cardiovascular Disease 09/09/21 Rich Barrett MD [address] 524[address] Physician Ophthalmology 01/21/22 Neil Kent MD [address] [place] [address]0105 Dermatology 02/24/22 [facility] 3033 [place], [place] [address]146 Assigned [place] Pharmacist 04/07/22 Livan Sharif MD [address] [place] [address] Cardiovascular Disease 05/14/22 Catherine Cm MD [address] [place] [address] Cardiovascular Disease 07/21/22 Valery Veronica, PA-C 909 [place] [address] Physician Overlock Sleeve Setter Dermatology 07/21/22 Brea Quinn APRN SECURITY SOLUTIONS ENGINEER 500 [place] [address] Nurse Practitioner Dermatology 09/21/22 Brea Quinn APRN SECURITY SOLUTIONS ENGINEER 6401 [place] [address] Assigned Surgical Provider 10/09/22 [place] [address] [facility] 300 [place] [address] Assigned Musculoskeletal Provider 10/09/22 Alfonso Renteria MD 5775 [facility] 200 [place], [place] 564466 Assigned Neuroscience Provider 04/02/23 Radha Lomeli APRN SECURITY SOLUTIONS ENGINEER 6405 [facility] [address] [place] [address] Assigned Heart and Vascular Provider 05/28/23 Jelena David OD [address] [facility] [place] [address] Ophthalmology 06/15/23 Esha Grimm PA-C [address] [place] [phone] Assigned PCP 07/16/23 Valery Veronica PA-C 9 [place] [address] Physician Overlock Sleeve Setter Dermatology 09/19/23 Rey Tay MD 9 [place] [address] Gastroenterology 09/20/23 Rocky Zepeda DO [address] [place] [address] Physician Gastroenterology 09/20/23 Philip Dumont MD [address] [place] [address] Physician Ophthalmology 09/22/23 Meredith Carrera PA-C [address] [place] [address] Assigned Gastroenterology Provider 11/01/23 Neil Kent MD [address] [place] [address] Dermatology 11/02/23 documented as of this encounter
--- OUTSIDE RECORDS SUMMARY | 2024-02-12 05:44 | XMS_ITS | Encounter Summary ---
Author Organization [place] Address [address] [place] [address] Care Team Providers Care Humane Agent Name Role Phone Thang Diana [place] [facility] Unavailable Rain Galaviz PA-C Unavailable Tavia Wyatt MD Unavailable Unavailable Erica Farrell PROFESSOR OF LEGAL STUDIES TOOL MAKER APPRENTICE Unavailable Rich Barrett MD Unavailable Neil Kent MD Unavailable Diana Desir Stanislav [facility] Unavailable [phone] Livan Sharif MD Unavailable Catherine Cm MD Unavailable + Valery Veronica PA-C Unavailable [phone] Brea Quinn PROFESSOR OF LEGAL STUDIES TOOL MAKER APPRENTICE Unavailable Brea Quinn PROFESSOR OF LEGAL STUDIES TOOL MAKER APPRENTICE Unavailable Jose Francisco Johnson MD Unavailable Alfonso Renteria MD Unavailable + [phone] Esha Grimm PA-C Primary Care Provider [phone] Radha Lomeli PROFESSOR OF LEGAL STUDIES TOOL MAKER APPRENTICE Unavailable [phone] Jelena David OD Unavailable Esha Grimm PA-C Unavailable [phone] Valery Veronica-C Unavailable [phone] Rey Tay MD Unavailable Rocky Zepeda DO Unavailable Philip Dumont MD Unavailable [phone] Meredith Carrera PA-C Unavailable [phone] Neil Kent MD Unavailable Juan Pablo Emmanuel MD Unavailable [phone] Encounter Details Date Type Department Care Team (Late st Contact Info) Description 11/21/2023 MyC Medical Advice [facility] G[facility]ology Clinic [address]th [place] [address] Sofia Alcantar Social History Tobacco [...] Answer Date Recorded PHQ-2 Score 0 10/25/2023 [facility] - Occupational Stress Questionnaire Answer Date [...] exercise at this level? 30 min 03/10/2023 [place] Depression Scale Answer Date Recorded [place] Depression Score 5 01/14/2021 Last EPDS [...] Description 02/14/2024 12:50 PM CDT Therapy Visit [facility] [place] [address] [place] [phone] Rustam Medina, PT [facility] [address] [place] [address] 03/06/2024 3:00 PM CDT Office Visit [facility] [place] [address] [place] [address] [address] [place] [phone] Radha Lomeli, PROFESSOR OF LEGAL STUDIES TOOL MAKER APPRENTICE [address] [place], [place] [address] 03/07/2024 9:00 AM CDT Hospital Encounter [address] 5th [place] [phone] Rocky Zepeda DO 500 [place], [place] 2[address] 03/07/2024 9:00 AM CDT - 03/07/2024 9:30 AM CDT Surgery [address] 5th [place] [phone] ZepedaRocky, DO 500 [place], [place] [phone] Esophagoscopy, gastroscopy, duodenoscopy (EGD), combined 06/21/2024 2:00 PM WELT TRIMMING MACHINE OPERATOR Office Visit [facility] Neurology [facility] 6545 [facility], [address] [place] [address] [place] [address] [place] [address] Johnny Penn MD [address] [place] [address] Scheduled Procedures Name Priority Associated Diagnoses Date/Ti az ESOPHAGOGASTRODUODENOSCOPY Eosinophilic esophagitis Esophageal dysphagia 03/07/2024 9:00 AM CDT documented as of this encounter Visit Diagnoses Not on filedocumented in this encounter Additional Health Concerns Infection Onset Date Last Indicated Resolved Time Rule Out COVID-19 12/26/2023 12/26/2023 12/26/2023 9:50 AM CDT Assessment Noted Time PHQ-9 Depression Total Score: 4 06/20/20 23 8:40 AM WELT TRIMMING MACHINE OPERATOR documented as of this encounter Care Teams Humane Agent Relationship Specialty Start Date End Date Esha Grimm PA-C [address] [place] [phone] PCP - General Family Medicine 05/04/23 Diana Desir, [facility] [address] [place] [address] Pharmacist Pharmacist 04/17/21 Rain Galaviz PA-C [address] [place] [address] [address] [place] [address] Physician School Principal Dermatology 04/28/21 Tavia Wyatt MD [address] [place] [address] DR [facility] [facility] [address] Dermatology 07/14/21 Erica Farrell APRN TOOL MAKER APPRENTICE [address] [place] [address] Nurse Practitioner Cardiovascular Disease 09/09/21 Rich Barrett MD [address] 438905 Physician Ophthalmology 01/21/22 Neil Kent MD [address] [place] [address] Dermatology 02/24/22 Diana Desir, [facility] 3033 [place], [place] 301976 Assigned [place] Pharmacist 04/07/22 Livan Sharif MD [address] [facility]00 [place], [place] 0767[address] Cardiovascular Disease 05/14/22 Catherine Cm MD [address] [facility]00 [place] [address] Cardiovascular Disease 07/21/22 Valery Veronica, PA-C [address] [place] [address] 816475 Physician School Principal Dermatology 07/21/22 Brea Quinn APRN TOOL MAKER APPRENTICE 500 [place], [place] 263815 Nurse Practitioner Dermatology 09/21/22 Brea Quinn APRN TOOL MAKER APPRENTICE 6401 [place] [address] Assigned Surgical Provider 10/09/22 [place] [address] [address] [facility] 300 [place], [place] [address] Assigned Musculoskeletal Provider 10/09/22 Alfonso Renteria MD 5775 [facility] 200 [place], [place] [phone] Assigned Neuroscience Provider 04/02/23 Radha Lomeli APRN TOOL MAKER APPRENTICE [address] [place] 2866300 [place], [place] [address] Assigned Heart and Vascular Provider 05/28/23 Jelena David OD [address]305 [facility] [place] [address] Ophthalmology 06/15/23 Esha Grimm PA-C [address] [place] [address] Assigned PCP 07/16/23 Valery Veronica PA-C 909 [place], [place] 0[address] Physician School Principal Dermatology 09/19/23 Rey Tay MD [address] [place] [address] Gastroenterology 09/20/23 Rocky Zepeda DO [address] [place] [address] Physician Gastroenterology 09/20/23 Philip Dumont MD [address] [place] [address] Physician Ophthalmology 09/22/23 Meredith Carrera PA-C [address] [place] [address] Assigned Gastroenterology Provider 11/01/23 Neil Kent MD [address] [address] Dermatology 11/02/23 [place] [address] [address] Neurological Surgery 12/26/23 documented as of this encounter
--- OUTSIDE RECORDS SUMMARY | 2024-02-12 05:44 | XMS_ITS | Encounter Summary ---
Author Organization [facility] Address [address] [place] [address] Care Team Providers Care Hoop Bending Machine Operator Name Role Phone Thang Diana Mayers [facility] Unavailable [phone] Rain Galaviz PA-C Unavailable [phone] Tavia Wyatt MD Unavailable Unavailable Erica Farrell CUTTER ALUMINUM SHEET PANEL MONITOR Unavailable Rich Barrett MD Unavailable Neil Kent MD Unavailable Diana Desir Stanislav [facility] Unavailable [phone] Livan Sharif MD Unavailable Catherine Cm MD Unavailable + Valery Veronica PA-C Unavailable [phone] Brea Quinn CUTTER ALUMINUM SHEET PANEL MONITOR Unavailable Brea Quinn CUTTER ALUMINUM SHEET PANEL MONITOR Unavailable Jose Francisco Johnson MD Unavailable Alfonso Renteria MD Unavailable + [phone] Esha Grimm PA-C Primary Care Provider Radha Lomeli CUTTER ALUMINUM SHEET PANEL MONITOR Unavailable [phone] Jelena David OD Unavailable [phone] Esha Grimm Adam PA-C Unavailable Valery Veronica PA-C Unavailable Rey Tay MD Unavailable Rocky Zepeda DO Unavailable Philip Dumont MD Unavailable Meredith Carrera PA-C Unavailable [phone] Neil Kent MD Unavailable Reason for Referral * Diagnostic Imaging XR (Routine) - Pending Review Specialty Diagnoses / Procedures Referred By Qian mayers Referred To Contact Radiology. Diagnoses Chest tightness SOB (shortness of breath) Procedures XR Chest 2 Views Jaret Cortez APRN CNP [address] [place] [id number] Referral ID Status Reason Start Date Expiration Date V isits Requested Visits Authorized [id number] Pending Review 12/21/2023 12/20/2024 1 1 Reason for Visit * Reason Comments Urgent Care Patient presents wit h chest tightness and shortness of breath for 2x days. Patient also c/o vaginal odor. Patient would like sti testing. Vaginal Problem Shortness of Breath Encounter Details Date Type Department Care Team (Late st Contact Info) Description 12/21/2023 12:40 PM CDT Office Visit [facility] [place] [address] [place] [address] Jaret Cortez APRN PANEL MONITOR [address] [place] [address] [phone] Vaginal odor (Primary Dx); Chest tightness; SOB [...] you attend chur or latter day services? 1 to 4 [...] Answer Date Recorded PHQ-2 Score 0 10/25/2023 [facility] - [...] exercise at this level? 30 min 03/10/2023 [place] Depression Scale Answer Date Recorded [place] Depression Score 5 01/14/2021 Last EPDS Self [...] encounter Progress Notes * Jaret Cortez, ARLENE PANEL MONITOR - 12/21/2023 12:40 PM CDT URGENT CARE ASSESSMENT AND PLAN: ICD-10-CM 1. Vaginal odor N89.8 UA with Microscopic reflex to Culture - Clinic Collect Wet prep - Clinic Collect Chlamydia trachomatis/Neisseria gonorrhoeae by PCR - Clinic Collect UA Microscopic with Reflex to Culture Treponema Abs w Reflex to RPR and Titer Hepatitis C antibody HIV Antigen Antibody Combo Lajas 2. Chest tightness R07.89 EKG 12-lead complete [...] Negative Ketones Urine Negative Negative mg/dL Specific [place] Urine 1.010 1.003 - 1.035 Blood Urine [...] Status --------- ------ CBC with platelets and d...[[id number]] Abnormal Final result Please view results for [...] CDT Therapy Visit [facility] [address] [place] [address] Rustam Medina, [facility] [address] [place] [address] 03/06/2024 3:00 PM CDT Office Visit [facility] [address] [facility] [address] [place] [phone] Radha Lomeli APRN PANEL MONITOR [address] [place], [place] [phone] 03/07/2024 9:00 AM CDT Hospital Encounter [address] [place] [phone] Rocky Zepeda DO 500 [place], [place] [address] 03/07/2024 9:00 AM CDT - 03/07/2024 9:30 AM CDT Surgery [facility] [address] [place] [phone] Rocky Zepeda DO 500 [place], [place] [phone] Esophagoscopy, gastroscopy, duodenoscopy (EGD), combined 06/21/2024 2:00 PM BRAID FOLDER Office Visit [facility] [place] [address] [facility], [address] [place] [phone] [place] [address] [place], [place] [address] Johnny Penn MD [address] [place] [address] Scheduled Procedures Name Priority Associated Diagnoses Date/Ti [...] 12/21/2023 1:39 PM CDT Jaret Cortez APRN [facility] - BLOOD ORD ERABLES LABORATORY [facility] [address] [facility] (no room number, 1st floor of [facility]) [place] [address], [facility] [phone] * HIV Antigen Antibody Combo Lajas (12/21/2023 1:39 PM CDT) [facility] HIV Antigen Antibody Combo Nonreactive Nonreactive 12/22/2023 [...] 12/21/2023 1:39 PM CDT Jaret Cortez APRN [facility] - BLOOD ORD ERABLES U LABORATORY [facility] [place] [facility] Lab [address] [facility], [address] [place] [address], [facility] * Hepatitis C antibody (12/21/2023 1:39 PM CDT) [facility] Hepatitis C Antibody Nonreactive Nonreactive 12/22/2023 2:27 [...] 12/21/2023 1:39 PM CDT Jaret Cortez APRN [facility] - BLOOD ORD ERABLES LABORATORY [facility] Core Lab [address] [place] [address], [address] * Treponema Abs w Reflex to RPR and Titer (12/21/2023 1:39 PM CDT) [facility] Treponema Antibody Total Nonreactive Nonreactive 12/21/2023 6:44 PM CDT SPECIALTY CORE/PROT/EN DO Blood BLOOD SPECIMEN / Unknown Venipuncture / Unknown 12/21/2023 1:39 PM CDT 12/21/2023 1:39 PM CDT Jaret Cortez APRN [facility] - BLOOD ORD ERABLES SPECIALTY CORE/PROT/ENDO Specialty Core/Prot/Endo [address] [facility], Room [address] * D dimer quantitative (12/21/2023 1:39 PM CDT) [facility] D-Dimer Quantitative <0.27 0.00 - 0.50 ug/mL [...] cut-off value is 0.50 ug/mL FEU. Jaret Helen Diego GEEN PANEL MONITOR LAB - BLOOD ORD ERABLES LABORATORY [facility] Lab [address] [facility] Lab (1st floor, no room number) [place] [address] * Comprehensive metabolic panel (12/21/2023 1:39 PM CDT) [facility] Signature Sodium 138 135 - 145 mmol/L 12/21/2023 [...] 12/21/2023 1:39 PM CDT Jaret Cortez APRN PANEL MONITOR LAB - BLOOD ORD ERABLES RH LABORATORY [facility] [address] Lab (1st floor, no room number) [place] [address], [facility] * XR Chest 2 Views [...] CNP LAB - URINE ORD ERABLES LABORATORY [facility] [place] [facility] [address] [facility] Lab (no room number, 1st floor of clinic) [place] [address], [facility] [phone] * Chlamydia trachomatis/Neisseria gonorrhoeae by PCR - Clinic Collect (12/21/2023 12:44 PM CDT) Pathologist [facility] Chlamydia Trachomatis Negative Negative 12/22/2023 11:38 AM CDT [facility] Comment: Negative for C. trachomatis rRNA by night shift manager mediated amplification. A negative result by night shift manager mediated amplification does not preclude the presence of infection because results are dependent on proper and adequate collection, absence of inhibitors and sufficient rRNA to be detected. Neisseria gonorrhoeae Negative Negative 12/22/2023 11:38 AM CDT [facility] Comment:Negative for N. gono rrhoeae rRNA by night shift manager mediated amplification. A negative result by night shift manager mediated amplification does not preclude the presence of C. trachomatis infection because results are dependent on proper and adequate collection, absence of inhibitors and sufficient rRNA to be detected. Swab VAGINAL STRUCTURE / Unknown Non-blood Collection / Unknown 12/21/2023 12:44 PM CDT 12/21/2023 12:54 PM CDT Jaret Cortez APRN [facility] - MICRO GEN ERAL ORDERABLES [facility] Inf. Diseases Diag. Lab [address] [facility], [address] [place] [address] * (ABNORMAL) Wet prep - Clinic Collect (12/21/2023 12:44 PM CDT) [facility] Trichomonas Absent Absent REINA 12/21/2023 1:12 PM CDT [facility] Yeast Absent Absent [facility] 12/21/2023 1:12 PM CDT [facility] Clue Cells Absent Absent [facility] 12/21/2023 1:12 PM CDT [facility] WBCs/high power field 2+(A) None REINA 12/21/2023 1:12 PM CDT [facility] Swab VAGINAL STRUCTURE / Unknown Non-blood Collection / Unknown 12/21/2023 12:44 PM CDT 12/21/2023 12:54 PM CDT Jaret Cortez APRN PANEL MONITOR LAB - MICRO GEN ERAL ORDERABLES LABORATORY [facility] [address] [facility] Lab (no room number, 1st floor of clinic) [place] [address], [facility] [phone] * UA with Microscopic reflex to Culture [...] 12/21/2023 12:58 PM CDT [facility] LAB[facility]ATORY Specific [place] Urine 1.010 1.003 - 1.035 12/21/2023 12:58 [...] 12/21/2023 12:54 PM CDT Jaret Cortez APRN PANEL MONITOR LAB - URINE ORD ERABLES LABORATORY [facility] [place] [facility] [address] Lab (no room number, 1st floor of clinic) [place] [address], [facility] [phone] * EKG 12-lead complete w/read - Clinics (12/21/2023) Jaret Woodallsy Diego JACOBS PANEL MONITOR ECG ORDERABLES documented in this encounter Visit [...] Total Score: 4 06/20/20 23 8:40 AM BRAID FOLDER documented as of this encounter Care Teams Hoop Bending Machine Operator Relationship Specialty Start Date End Date Esha Grimm PA-C [address] [place] [address] PCP - General Family Medicine 05/04/23 Diana Desir, [facility] [address] [place], [place] [address] Pharmacist Pharmacist 04/17/21 Rain Galaviz PA-C [address] [place] [address] [address] [place] [address] Physician Game Developer Dermatology 04/28/21 Tavia Wyatt MD [address] [place] [address] [address] [place] [address] Dermatology 07/14/21 Erica Farrell APRN PANEL MONITOR [address] [facility] [address] [place] [address] Nurse Practitioner Cardiovascular Disease 09/09/21 Rich Barrett MD [address] [facility] [address] [place] [address] Physician Ophthalmology 01/21/22 Neil Kent MD 500 [place] [address] Dermatology 02/24/22 Diana Desir [facility] [address] [place] [address] Assigned [place] Pharmacist 04/07/22 Livan Sharif MD [address] [facility] [address] [facility] [address] [place], [place] [address] Cardiovascular Disease 05/14/22 Catherine Cm MD [address] [place] 79[address]600 [place], [place] [address] Cardiovascular Disease 07/21/22 Valery Veronica, PA-C [address] [place] [address] Physician Game Developer Dermatology 07/21/22 Brea Quinn APRN PANEL MONITOR 500 [place] [address] Nurse Practitioner Dermatology 09/21/22 Brea Quinn APRN PANEL MONITOR [address] [place] [address] Assigned Surgical Provider 10/09/22 [place] [address] [address] Assigned Musculoskeletal Provider 10/09/22 Alfonso Renteria MD [address] [facility] 200 [place] [address] Assigned Neuroscience Provider 04/02/23 Radha Lomeli APRN PANEL MONITOR [address] [place] [address] Assigned Heart and Vascular Provider 05/28/23 Jelena David OD [address] [facility] [place] [address] MD Ophthalmology 06/15/23 Esha Grimm PA-C [address] [place] [phone] Assigned PCP 07/16/23 Valery Veronica PA-C [address] [place] [address] Physician Game Developer Dermatology 09/19/23 Rey Tay MD [address] [place] [address] 936605 Gastroenterology 09/20/23 Rocky Zepeda DO [address] [place] [address]16875 Physician Gastroenterology 09/20/23 Philip Dumont MD [address] [place] [address] Physician Ophthalmology 09/22/23 Meredith Carrera PA-C [address] [place] [address] 295305 Assigned Gastroenterology Provider 11/01/23 Neil Kent MD [address] [address] Dermatology 11/02/23 documented as of this encounter
--- OUTSIDE RECORDS SUMMARY | 2024-02-12 05:44 | XMS_ITS | Encounter Summary ---
Author Organization [facility] Address [address] [place] [address] Care Team Providers Care Daily Release And Dupe Printer Name Role Phone Thang Diana [place] [facility] Unavailable [phone] Rain Galaviz PA-C Unavailable Tavia Wyatt MD Unavailable Unavailable Erica Farrell SUPERVISOR PHOSPHORIC ACID SKATING RINK ICE MAKER Unavailable Rich Barrett MD Unavailable Neil Kent MD Unavailable Diana Desir Stanislav [facility] Unavailable [phone] Livan Sharif MD Unavailable Catherine Cm MD Unavailable + Valery Veronica PA-C Unavailable [phone] Brea Quinn SUPERVISOR PHOSPHORIC ACID SKATING RINK ICE MAKER Unavailable Brea Quinn SUPERVISOR PHOSPHORIC ACID SKATING RINK ICE MAKER Unavailable [phone] Jose Francisco Johnson MD Unavailable Alfonso Renteria MD Unavailable + [phone] Esha Grimm PA-C Primary Care Provider [phone] Radha Lomeli SUPERVISOR PHOSPHORIC ACID SKATING RINK ICE MAKER Unavailable [phone] Jelena David OD Unavailable [facility] Unavailable [phone] Valery VeronicaC Unavailable [phone] Rey Tay MD Unavailable Rocky Zepeda Unavailable Philip Dumont MD Unavailable [phone] Meredith CarreraC Unavailable [phone] Neil Kent MD Unavailable Encounter Details Date [...] Answer Date Recorded PHQ-2 Score 0 10/25/2023 [facility] - Occupational Stress Questionnaire Answer [...] 12:50 PM CDT Therapy Visit [facility] [address] [address] Rustam Medina, PT [facility] [address] [place] [address] 03/06/2024 3:00 PM CDT Office Visit [facility] [place] [address] [place] [address] [address] [place] [phone] Radha Lomeli, SUPERVISOR PHOSPHORIC ACID SKATING RINK ICE MAKER [address] [place], [place] [address] 03/07/2024 9:00 AM CDT Hospital Encounter [address] [phone] Rocky Zepeda DO 500 [place] [address] 03/07/2024 9:00 AM CDT - 03/07/2024 9:30 AM CDT Surgery [address] [phone] Rocky Zepeda DO 500 [place], [place] 46[address] Esophagoscopy, gastroscopy, duodenoscopy (EGD), combined 06/21/2024 2:00 PM IN FLIGHT CREW MEMBER Office Visit [facility] [address] [facility], [address] [place] [address] [place] [address] [place], [place] [id number] Johnny Penn MD [address] [facility] [place] [id number] Scheduled Procedures Name Priority Associated Diagnoses Date/Ti nh ESOPHAGOGASTRODUODENOSCOPY Eosinophilic esophagitis Esophageal dysphagia 03/07/2024 9:00 AM CDT documented as of this encounter Visit Diagnoses Not on filedocumented in this encounter Additional Health Concerns Assessment Noted Time PHQ-9 Depression Total Score: 4 06/20/20 23 8:40 AM IN FLIGHT CREW MEMBER documented as of this encounter Care Teams Daily Release And Dupe Printer Relationship Specialty Start Date End Date Esha Grimm PA-C [address] [place] [phone] PCP - General Family Medicine 05/04/23 Diana Desir, [facility] [address] [place] [address] Pharmacist Pharmacist 04/17/21 Rain Galaviz PA-C [address] [place] [address] [address] [place] [address] Physician Machinery Engineer Dermatology 04/28/21 Tavia Wyatt MD [address] [place] [address] [address] [place] [address] Dermatology 07/14/21 Erica Farrell APRN SKATING RINK ICE MAKER [address] [place], [place] [address] Nurse Practitioner Cardiovascular Disease 09/09/21 Rich Barrett MD 516 [facility] [address] [place], [place] [address] Physician Ophthalmology 01/21/22 Neil Kent MD 500 [place], [place] [address]145 Dermatology 02/24/22 Diana Desir, [facility] [address] [place], [place] [address] Assigned [facility] Pharmacist 04/07/22 Livan Sharif MD [address] [place] [address] Cardiovascular Disease 05/14/22 Catherine Cm MD [address] [place] [address] Cardiovascular Disease 07/21/22 Valery Veronica PAUcheC [address], [place] 4330[address] Physician Machinery Engineer Dermatology 07/21/22 Brea Quinn APRN SKATING RINK ICE MAKER 500 [place] [address] Nurse Practitioner Dermatology 09/21/22 Brea Quinn APRN SKATING RINK ICE MAKER [address] [place] [address] Assigned Surgical Provider 10/09/22 [place] [address] [address] [facility] 300 [place] [address] Assigned Musculoskeletal Provider 10/09/22 Alfonso Renteria MD [address] [facility] 200 [place] [address] Assigned Neuroscience Provider 04/02/23 Radha Lomeli APRN SKATING RINK ICE MAKER [address] [facility] [address] [place] [address] Assigned Heart and Vascular Provider 05/28/23 Jelena David OD [facility] [facility] [place] [address] Ophthalmology 06/15/23 Esha Grimm PA-C [address] [place] [phone] Assigned PCP 07/16/23 Valery Veronica PA-C [address] [place] [address] 866575 Physician Machinery Engineer Dermatology 09/19/23 Rey Tay MD [address] [place] [address]70[address] Gastroenterology 09/20/23 Rocky Zepeda DO [address] [place] [address] Physician Gastroenterology 09/20/23 Philip Dumont MD [address] [place], [place] [address]24[address] Physician Ophthalmology 09/22/23 Meredith Carrera PA-C [address] [place], [place] [address] Assigned Gastroenterology Provider 11/01/23 Neil Kent MD [address] [place] [address] 252590 Dermatology 11/02/23 documented as of this encounter
--- OUTSIDE RECORDS SUMMARY | 2024-02-12 05:44 | XMS_ITS | Encounter Summary ---
Author Organization [facility] Address [address] [place] [address] Care Team Providers Care Ground School Instructor Name Role Phone Thang Diana [place] [facility] Unavailable [phone] Rain Galaviz PA-C Unavailable [phone] Tavia Wyatt MD Unavailable Unavailable Erica Farrell POULTRY SLAUGHTERER HOTEL SERVICE MANAGER Unavailable Rich Barrett MD Unavailable Neil Kent MD Unavailable Diana Desir Stanislav [facility] Unavailable [phone] Livan Sharif MD Unavailable Catherine Cm MD Unavailable + Valery Veronica PA-C Unavailable [phone] Brea Quinn POULTRY SLAUGHTERER HOTEL SERVICE MANAGER Unavailable Brea Quinn POULTRY SLAUGHTERER HOTEL SERVICE MANAGER Unavailable Jose Francisco Johnson MD Unavailable Alfonso Renteria MD Unavailable + [phone] Esha Grimm PA-C Primary Care Provider [phone] Radha Lomeli POULTRY SLAUGHTERER HOTEL SERVICE MANAGER Unavailable [phone] Jelena David OD Unavailable Alfa Eshalincoln [facility] Unavailable [phone] Valery VeronicaC Unavailable [phone] Rey Tay MD Unavailable Rocky Zepeda Unavailable Philip Dumont MD Unavailable [phone] Meredith CarreraC Unavailable [phone] Neil Kent MD Unavailable Encounter Details Date [...] Answer Date Recorded PHQ-2 Score 0 10/25/2023 [facility]at ional [facility] - Occupational Stress Questionnaire Answer Date [...] exercise at this level? 30 min 03/10/2023 Juneau Depression Scale Answer Date Recorded Juneau Depression Score 5 01/14/2021 Last EPDS Self [...] Description 02/14/2024 12:50 PM CDT Therapy Visit [facility] [address] [address] Rustam Medina, PT [facility] [address] [place] [address] 03/06/2024 3:00 PM CDT Office Visit [facility] [place] [address] [place] [address] [address] [place] [phone] Radha Lomeli, POULTRY SLAUGHTERER HOTEL SERVICE MANAGER [address] [place], [place] [address] 03/07/2024 9:00 AM CDT Hospital Encounter [address] [phone] Rocky Zepeda DO 500 [place] [address] 03/07/2024 9:00 AM CDT - 03/07/2024 9:30 AM CDT Surgery [address] [phone] Rocky Zepeda DO 500 [place], [place] 6[address] Esophagoscopy, gastroscopy, duodenoscopy (EGD), combined 06/21/2024 2:00 PM ETIQUETTE TEACHER Office Visit [facility] Neurology Clinics [facility] [address] [facility], [address] [place] [address] [place] [address] [place], [place] [id number] Johnny Penn MD [address] [facility] [place] [id number] Scheduled Procedures Name Priority Associated Diagnoses Date/Ti sc ESOPHAGOGASTRODUODENOSCOPY Eosinophilic esophagitis Esophageal dysphagia 03/07/2024 9:00 AM CDT documented as of this encounter Visit Diagnoses Not on filedocumented in this encounter Additional Health Concerns Assessment Noted Time PHQ-9 Depression Total Score: 4 06/20/20 23 8:40 AM ETIQUETTE TEACHER documented as of this encounter Care Teams Ground School Instructor Relationship Specialty Start Date End Date Esha Grimm PA-C [address] [place] [phone] PCP - General Family Medicine 05/04/23 Diana Desir, [facility] [address] [place] [address] Pharmacist Pharmacist 04/17/21 Rain Galaviz PA-C [address] [place] [address] [address] [place] [address] Physician It Senior Analyst Dermatology 04/28/21 Tavia Wyatt MD [address] [place] [address] [address] [address] Dermatology 07/14/21 Erica Farrell APRN HOTEL SERVICE MANAGER [address] [place], [place] 67[address] Nurse Practitioner Cardiovascular Disease 09/09/21 Rich Barrett MD [address] [facility] [address] [place], [place] [address] Physician Ophthalmology 01/21/22 Neil Kent MD 500 [place], [place] 698815 Dermatology 02/24/22 Diana Desir, [facility] [address] [place], [place] 507836 Assigned [facility] Pharmacist 04/07/22 Livan Sharif MD [address] [place] [address] Cardiovascular Disease 05/14/22 Catherine Cm MD [address] [place] [address] Cardiovascular Disease 07/21/22 Valery Veronica PAUcheC 909 [place], [place] 9[address] Physician It Senior Analyst Dermatology 07/21/22 Brea Quinn APRN HOTEL SERVICE MANAGER 500 [place] [address] Nurse Practitioner Dermatology 09/21/22 Brea Quinn APRN HOTEL SERVICE MANAGER 6401 [place] [address] Assigned Surgical Provider 10/09/22 [place] [address] [facility] 300 [place] [address] Assigned Musculoskeletal Provider 10/09/22 Alfonso Renteria MD [address] [facility] 200 [place] [address] Assigned Neuroscience Provider 04/02/23 Radha Lomeli APRN HOTEL SERVICE MANAGER [address] [facility] [address] [place] [address] Assigned Heart and Vascular Provider 05/28/23 Jelena David OD [facility] [facility] [place] [address] Ophthalmology 06/15/23 Esha Grimm PA-C [address] [place] [address] Assigned PCP 07/16/23 Valery Veronica PA-C [address] [place] [address]37[address] Physician It Senior Analyst Dermatology 09/19/23 Rey Tay MD [address] [place] [address]98[address] Gastroenterology 09/20/23 Rocky Zepeda DO [address] [place] [address] 899005 Physician Gastroenterology 09/20/23 Philip Dumont MD 516 [place], [place] 5[address] Physician Ophthalmology 09/22/23 Meredith Carrera PA-C 9 [place], [place] 543495 Assigned Gastroenterology Provider 11/01/23 Neil Kent MD [address] [place] [address] 610310 Dermatology 11/02/23 documented as of this encounter
--- OUTSIDE RECORDS SUMMARY | 2024-02-12 05:44 | XMS_ITS | Encounter Summary ---
Author Organization [facility] Address [address] [place] [address] Care Team Providers Care Community Engagement Specialist Name Role Phone Thang Diana [place] [facility] Unavailable Rain Galaviz PA-C Unavailable Tavia Wyatt MD Unavailable Unavailable Erica Farrell RUG RENOVATOR BANKER MASON Unavailable Rich Barrett MD Unavailable Neil Kent MD Unavailable Diana Desir Stanislav [facility] Unavailable [phone] Livan Sharif MD Unavailable Catherine Cm MD Unavailable + Valery Veronica PA-C Unavailable [phone] Brea Quinn RUG RENOVATOR BANKER MASON Unavailable Brea Quinn RUG RENOVATOR BANKER MASON Unavailable Jose Francisco Johnson MD Unavailable Alfonso Renteria MD Unavailable + [phone] Esha Grimm PA-C Primary Care Provider Radha Lomeli RUG RENOVATOR BANKER MASON Unavailable [phone] Jelena David OD Unavailable Esha Grimm Adam PA-C Unavailable [phone] Valery Veronica PA-C Unavailable Rey Tay MD Unavailable Rocky Zepeda Unavailable Philip Dumont MD Unavailable Meredith Carrera PA-C Unavailable [phone] Neil Kent MD Unavailable Reason for Referral * Diagnostic Imaging Ultrasound (Routine) - Pending Review Specialty Diagnoses / Procedures Referred By Contac t Referred To Contact Radiology. Diagnoses Epigastric pain Procedures US Abdomen Limited Lauren Claudio PA-C [address] [place] [address] Referral ID Status Reason Start Date Expiration Date V isits Requested Visits Authorized [id number] Pending Review 10/27/2023 10/26/2024 1 1 Reason for Visit * Diagnostic Imaging Ultrasound (Routine) - Pending Review Specialty Diagnoses / Procedures Referred By Qian mayers Referred To Contact Radiology. Diagnoses Epigastric pain Procedures US Abdomen Limited Lauren Claudio PA-C [address] [place] [address] Referral ID Status Reason Start Date Expiration Date V isits Requested Visits Authorized [id number] Pending Review 10/27/2023 10/26/2024 1 1 Encounter Details Date Type Department Care Team (Latest Contact Info) Description 11/24/2023 8:20 AM CDT - 11/24/2023 11:59 PM CDT Hospital Encounter [facility] [address] [facility] [address] [place] [address] Lauren Claudio PA-C [address] [place] [address] Epigastric pain Discharge Disposition: Home or Self [...] Answer Date Recorded PHQ-2 Score 0 10/25/2023 [facility] Occupat [facility] [...] exercise at this level? 30 min 03/10/2023 Kirksey Depression Scale Answer Date Recorded Kirksey Depression Score 5 01/14/2021 Last EPDS Self [...] Description 02/14/2024 12:50 PM CDT Therapy Visit [facility] [place] [facility] [address] [place] [phone] Rustam Medina, PT [facility] [address] [place] [address] 03/06/2024 3:00 PM CDT Office Visit [facility] [place] [address] [facility] [address] [place] [phone] Radha Lomeli, RUG RENOVATOR BANKER MASON [address] [place], [place] [address] 03/07/2024 9:00 AM CDT Hospital Encounter [facility] [address] [facility] 5th [place] [phone] Rocky Zepeda DO 500 [place], [place] 4[address] 03/07/2024 9:00 AM CDT - 03/07/2024 9:30 AM CDT Surgery [facility] [address] [place] [address] [phone] Rocky Zepeda DO 500 [place], [place] [address] Esophagoscopy, gastroscopy, duodenoscopy (EGD), combined 06/21/2024 2:00 PM HORTICULTURE SUPERVISOR Office Visit [facility] [place] [address] [facility], [address] [place] [phone] [place] [address] [place] [address] Johnny Penn MD [address] [place] [address] Scheduled Procedures Name Priority Associated Diagnoses Date/Ti [...] gallstones identified. [facility] ID: [id number] Narrative 11/24/2023 4:03 PM CDT ULTRASOUND ABDOMEN [...] gallstones identified. [facility] ID: [id number] Lauren Claudio PA-C IMG US ORDERABLES documented in this encounter Visit Diagnoses Diagnosis Epigastric pain Abdominal pain, epigastric Eosinophilic esophagitis Esophageal dysphagia Dysphagia, pharyngoesophageal phase documented in this encounter Additional Health Concerns Assessment Noted Time PHQ-9 Depression Total Score: 4 06/20/20 23 8:40 AM HORTICULTURE SUPERVISOR documented as of this encounter Care Teams Community Engagement Specialist Relationship Specialty Start Date End Date Esha Grimm PA-C [address] [place] [address] PCP - General Family Medicine 05/04/23 Diana Desir, [facility] [address] [place], [place] [address] Pharmacist Pharmacist 04/17/21 Rain Galaviz PA-C [address] [place] [address] [address] [place] [address] Physician Hoop Maker Machine Dermatology 04/28/21 Tavia Wyatt MD [address] [place] [address] [address] [place] [address] Dermatology 07/14/21 Erica Farrell APRN BANKER MASON [address] [facility] [address] [address] [place] [address] Nurse Practitioner Cardiovascular Disease 09/09/21 Rich Barrett MD [address] [facility] 9A [place] [address] Physician Ophthalmology 01/21/22 Neil Kent MD 500 [place] [address] Dermatology 02/24/22 Diana Desir [facility] 3033 [place] [address] Assigned [place] Pharmacist 04/07/22 Livan Sharif MD [address] [facility] [address] [facility] [address] [place], [place] [address] Cardiovascular Disease 05/14/22 Catherine Cm MD [address] [address] 1702500 [place], [place] 442525 Cardiovascular Disease 07/21/22 Valery Veronica, PA-C 909 [place] [address] Physician Hoop Maker Machine Dermatology 07/21/22 Brea Quinn APRN BANKER MASON 500 [place] [address] Nurse Practitioner Dermatology 09/21/22 Brea Quinn APRN BANKER [place]ON [address] [place] [address] Assigned Surgical Provider 10/09/22 [place] [address] [address] Assigned Musculoskeletal Provider 10/09/22 Alfonso Renteria MD [address] [facility] 200 [place] [address] Assigned Neuroscience Provider 04/02/23 Radha Lomeli APRN BANKER MASON [address] [place] [address] Assigned Heart and Vascular Provider 05/28/23 Jelena David OD [address] [facility] [address] MD Ophthalmology 06/15/23 Esha Grimm PA-C [address] [place] [phone] Assigned PCP 07/16/23 Valrey Veronica PA-C [address] [place] [address] 476735 Physician Hoop Maker Machine Dermatology 09/19/23 Rey Tay MD [address] [place] [address] 076285 Gastroenterology 09/20/23 Rocky Zepeda DO [address] [place] [address] 752105 Physician Gastroenterology 09/20/23 Philip Dumont MD [address] [place] [address] 096195 Physician Ophthalmology 09/22/23 Meredith Carrera PA-C [address] [place] [address] 280395 Assigned Gastroenterology Provider 11/01/23 Neil Kent MD [address] [address] Dermatology 11/02/23 documented as of this encounter
--- OUTSIDE RECORDS SUMMARY | 2024-02-12 05:44 | XMS_ITS | Encounter Summary ---
Author Organization [place] Address [address] [place] [address] Care Team Providers Care Weekend Anchor Name Role Phone Thang Diana [place] [facility] Unavailable Rain Galaviz PA-C Unavailable Tavia Wyatt MD Unavailable Unavailable Erica Farrell AIR TRANSPORT PROFESSIONALS ACADEMIC RECORDS SPECIALIST Unavailable Rich Barrett MD Unavailable Neil Kent MD Unavailable Diana Desir Stanislav [facility] Unavailable [phone] Livan Sharif MD Unavailable Catherine Cm MD Unavailable + Valery Veronica PA-C Unavailable [phone] Brea Quinn AIR TRANSPORT PROFESSIONALS ACADEMIC RECORDS SPECIALIST Unavailable Brea Quinn AIR TRANSPORT PROFESSIONALS ACADEMIC RECORDS SPECIALIST Unavailable Jose Francisco Johnson MD Unavailable Alfonso Renteria MD Unavailable + [phone] Ehsa Grimm PA-C Primary Care Provider Rdaha Lomeli AIR TRANSPORT PROFESSIONALS ACADEMIC RECORDS SPECIALIST Unavailable [phone] Jelena David OD Unavailable [phone] AlfaWicholincoln Medina PA-C Unavailable [phone] Valery Veronica PA-C Unavailable [phone] Rey Tay MD Unavailable Rocky Zepeda DO Unavailable Philip Dumont MD Unavailable Meredith Carrera PA-C Unavailable Neil Kent MD Unavailable Juan Pablo Emmanuel MD Unavailable Reason for Visit * Reason Onset Date Comments Call Back 12/21/2023 Schedule appt to brandy Encounter Details Date Type Department Care Team (Late st Contact Info) Description 12/21/2023 Telephone [facility] [address] [facility] [address] [place] [address] Livan Sharif MD [address] [facility] [address] [place] [address] Call Back (Schedule appt tomorrow [...] [facility] - Occupational Stress Questionnaire Answer Date [...] exercise at this level? 30 min 03/10/2023 Erwin Depression Scale Answer Date Recorded Erwin Depression Score 5 01/14/2021 Last EPDS Self [...] on wait list for . Routing to program scheduler. Carley ZABALA [facility] * Telephone Encounter - Sandra Whiting - 12/21/2023 12:34 PM CDT [facility] Call Center Phone Message May a [...] CDT Therapy Visit [facility] [address] [address] Rustam Medina PT [facility] [address] [place] [address] 03/06/2024 3:00 PM CDT Office Visit [facility] [place] [address] [facility] [address] [place] [phone] Radha Lomeli, AIR TRANSPORT PROFESSIONALS ACADEMIC RECORDS SPECIALIST [address] [facility] [facility] [address] [place] [address] 03/07/2024 9:00 AM CDT Hospital Encounter [facility] [address] [facility] [address] 5th [place] [phone] Rocky Zepeda DO 500 [place], [place] [address] 03/07/2024 9:00 AM CDT - 03/07/2024 9:30 AM CDT Surgery [facility] [address] [facility] [address] 5th [place] [address] Rocky Zepeda, 500 [place], [place] [address] Esophagoscopy, gastroscopy, duodenoscopy (EGD), combined 06/21/2024 2:00 PM WHEAT CLEANER Office Visit [facility]rology [facility]ics - [place] [address] [facility], [address] [place] [address] [place] [address] [facility] [place] [address] Johnny Penn MD [address] [facility] [address] Scheduled Procedures Name Priority Associated Diagnoses Date/Ti co ESOPHAGOGASTRODUODENOSCOPY Eosinophilic esophagitis Esophageal dysphagia 03/07/2024 9:00 AM CDT documented as of this encounter Visit Diagnoses Not on filedocumented in this encounter Additional Health Concerns Infection Onset Date Last Indicated Resolved Time Rule Out COVID-19 12/26/2023 12/26/2023 12/26/2023 9:50 AM CDT Assessment Noted Time PHQ-9 Depression Total Score: 4 06/20/20 23 8:40 AM WHEAT CLEANER documented as of this encounter Care Teams Weekend Anchor Relationship Specialty Start Date End Date Esha Grimm PA-C [address] [place] [address] PCP - General Family Medicine 05/04/23 Diana Desir [facility] [address] [place] [address] Pharmacist Pharmacist 04/17/21 Rain Glaaviz PA-C [address] [place] [address] [address] [facility] [place] [address] Physician Chicken Buyer Dermatology 04/28/21 Tavia Wyatt MD [address] [place] [address] [address] [place] [address] Dermatology 07/14/21 Erica Farrell APRN ACADEMIC RECORDS SPECIALIST [address] [place] [address] Nurse Practitioner Cardiovascular Disease 09/09/21 Rich Barrett MD [address] [place] [address] 873255 Physician Ophthalmology 01/21/22 Neil Kent MD [address] [place] [address] 158515 Dermatology 02/24/22 [facility] [address] [place] [address] 543666 Assigned [place] Pharmacist 04/07/22 Livan Sharif MD [address], [facility] [place] [address] Cardiovascular Disease 05/14/22 Catherine Cm MD [address] [facility] [place] 54[address] Cardiovascular Disease 07/21/22 Valery Veronica PA-C [address] [place] [address] Physician Chicken Buyer Dermatology 07/21/22 Brea Quinn APRN ACADEMIC RECORDS SPECIALIST 500 [place] [address] Nurse Practitioner Dermatology 09/21/22 Brea Quinn APRN ACADEMIC RECORDS SPECIALIST 6401 [place] [address] Assigned Surgical Provider 10/09/22 [place] [address] [place] [address] [address] Assigned Musculoskeletal Provider 10/09/22 Alfonso Renteria MD [address] [address] Assigned Neuroscience Provider 04/02/23 Radha Lomeli APRN ACADEMIC RECORDS SPECIALIST [address] [place], [place] [address] [place] [address] Assigned Heart and Vascular Provider 05/28/23 Jelena David OD [address] [facility] [place] [address] Ophthalmology 06/15/23 Esha Grimm PA-C [address] [place] [phone] Assigned PCP 07/16/23 Valery Veronica PA-C 909 [place] [address] Physician Chicken Buyer Dermatology 09/19/23 Rey Tay MD [address] [place] [address] 254745 MD Gastroenterology 09/20/23 Rocky Zepeda DO [address] [place] [address] Physician Gastroenterology 09/20/23 Philip Dumont MD [address] [place] [address]365 Physician Ophthalmology 09/22/23 Meredith Carrera PA-C [address] [place] [address] Assigned Gastroenterology Provider 11/01/23 Neil Kent MD [address] 774330 Dermatology 11/02/23 [place] [address] [place], [place] 47[address]67 Neurological Surgery 12/26/23 documented as of this encounter
[2024-02-12 05:45] VITALS: PULSE 71; O2SAT 100
--- OUTSIDE RECORDS SUMMARY | 2024-02-12 05:45 | XMS_ITS | Encounter Summary ---
Author Organization [place] Address [address] [place] [address] Care Team Providers Care Cut And Cover Line Worker Name Role Phone Thang Diana [place] [facility] Unavailable Rain Galaviz PA-C Unavailable Tavia Wyatt MD Unavailable Unavailable Erica Farrell MOLD COOLER LITHOGRAPHIC PHOTOGRAPHER APPRENTICE Unavailable Rich Barrett MD Unavailable Neil Kent MD Unavailable Diana Desir Stanislav [facility] Unavailable [phone] Livan Sharif MD Unavailable Catherine Cm MD Unavailable + Valery Veronica PA-C Unavailable [phone] Brea Quinn MOLD COOLER LITHOGRAPHIC PHOTOGRAPHER APPRENTICE Unavailable Brea Quinn MOLD COOLER LITHOGRAPHIC PHOTOGRAPHER APPRENTICE Unavailable Jose Francisco Johnson MD Unavailable Alfonso Renteria MD Unavailable + [phone] Esha Grimm PA-C Primary Care Provider Radha Lomeli MOLD COOLER LITHOGRAPHIC PHOTOGRAPHER APPRENTICE Unavailable [phone] Jelena David OD Unavailable Alfa Eshalincoln DOWC Unavailable Valery VeronicaC Unavailable Rey Tay MD Unavailable Rocky Zepeda Unavailable Philip Dumont MD Unavailable [phone] Meredith CarreraC Unavailable Neil Kent MD Unavailable Reason for Visit * Reason Onset Date Comments Refill Request 11/17/2023 Ketoconazole 2% shampoo Encounter Details Date Type Department Care Team (Late st Contact Info) Description 11/17/[address] [address] Brea Quinn, [facility] [address] [place], [place] 0[address] Refill Request (Ketoconazole 2% shampoo) Social History [...] 10/25/2023 [facility] [...] exercise at this level? 30 min 03/10/2023 [place] Depression Scale Answer Date Recorded [...] for review/approval because: Failed protocol Antifungal Agents [id number]/17/2023 04:17 PM Protocol Details Recent (12 mo) or future (90 days) visit within the authorizing provider's specialty Always Fail Criteria Future Office Visit: 02/06/2024 at Derm with Neil Kent MD Sophia L. SHARPLES MACHINE OPERATOR [facility] Dermatology [phone] * Telephone Encounter - Antonella Lauren RN [...] APRN CNP Future Office Visit: 02/06/2024 at [facility] with Neil Kent MD documented in this encounter Plan of Treatment Upcoming Encounters Date Type Department Care Team (Latest Contact Info) Description 02/14/2024 12:50 PM CDT Therapy Visit [address] [address] Rustam Medina, PT [facility] [address] [place] [address] 03/06/2024 3:00 PM CDT Office Visit [facility] [place] [address] [facility] [address] [place] [phone] Radha Lomeli APRN LITHOGRAPHIC PHOTOGRAPHER APPRENTICE [address] [place] [address] 03/07/2024 9:00 AM CDT Hospital Encounter [address] [phone] Rocky Zepeda DO 500 [place] [address] 03/07/2024 9:00 AM CDT - 03/07/2024 9:30 AM CDT Surgery [address] [phone] Rocky Zepeda DO 500 [place], [place] [address] Esophagoscopy, gastroscopy, duodenoscopy (EGD), combined 06/21/2024 2:00 PM TECHNICAL SALES MANAGER Office Visit [facility] [address] [facility], [address] [place] [address] [place] [address] [place], [place] 1325[address] Johnny Penn MD [address] [facility] [place] [place] [address] Scheduled Procedures Name Priority Associated Diagnoses Date/Ti mn ESOPHAGOGASTRODUODENOSCOPY Eosinophilic esophagitis Esophageal dysphagia 03/07/2024 9:00 AM CDT documented as of this encounter Visit Diagnoses Diagnosis Psoriasis Other psoriasis Eosinophilic esophagitis Esophageal dysphagia Dysphagia, pharyngoesophageal phase documented in this encounter Additional Health Concerns Assessment Noted Time PHQ-9 Depression Total Score: 4 06/20/20 23 8:40 AM TECHNICAL SALES MANAGER documented as of this encounter Care Teams Cut And Cover Line Worker Relationship Specialty Start Date End Date Esha Grimm PA-C [address] [place] [address] PCP - General Family Medicine 05/04/23 Diana Desir, [facility] [address] [facility] [place] [address] Pharmacist Pharmacist 04/17/21 Rain Galaviz PA-C [address] [place] [address] [address] [place] [address] Physician Director Of Environmental Services Dermatology 04/28/21 Tavia Wyatt MD [address] [place] [address] [address] [place] [address] Dermatology 07/14/21 Erica Farrell APRN LITHOGRAPHIC PHOTOGRAPHER APPRENTICE [address] [place] [address] Nurse Practitioner Cardiovascular Disease 09/09/21 Rich Barrett MD [address] [facility] [address] [place] [address] Physician Ophthalmology 01/21/22 Neil Kent MD 500 [place] [address] Dermatology 02/24/22 Diana Desir, [facility] [address] [place], [place] [address] Assigned [place] Pharmacist 04/07/22 Livan Sharif MD [address] [place], [place] [address] Cardiovascular Disease 05/14/22 Catherine Cm MD [address] [place], [place] 4[address] Cardiovascular Disease 07/21/22 Valery Veronica PA-C 909 [place], [place] 8084[address] Physician Director Of Environmental Services Dermatology 07/21/22 Brea Quinn APRN LITHOGRAPHIC PHOTOGRAPHER APPRENTICE 500 [place], [place] 342645 Nurse Practitioner Dermatology 09/21/22 Brea Quinn APRN LITHOGRAPHIC PHOTOGRAPHER APPRENTICE [address] [facility] [place] [address] Assigned Surgical Provider 10/09/22 [place] [address] [place] [address] Assigned Musculoskeletal Provider 10/09/22 Alfonso Renteria MD [address] [facility] 200 [place], [place] 223276 Assigned Neuroscience Provider 04/02/23 Radha Lomeli, MOLD COOLER LITHOGRAPHIC PHOTOGRAPHER APPRENTICE [address] [facility] [address] [place], [place] [address] Assigned Heart and Vascular Provider 05/28/23 Jelena David OD [address] [facility] [address] Ophthalmology 06/15/23 Esha Grimm PA-C [address] [place] [address] Assigned PCP 07/16/23 Valery Veronica PA-C [address] [place] [address] 908235 Physician Director Of Environmental Services Dermatology 09/19/23 Rey Tay MD [address] [place] [address] 182765 Gastroenterology 09/20/23 Rocky Zepeda DO [address] [place] [address] Physician Gastroenterology 09/20/23 Philip Dumont MD 6 [place] [address] Physician Ophthalmology 09/22/23 Meredith Carrera PA-C [address] [place] [address] Assigned Gastroenterology Provider 11/01/23 Neil Kent MD [address] [address] Dermatology 11/02/23 documented as of this encounter
--- OUTSIDE RECORDS SUMMARY | 2024-02-12 05:45 | XMS_ITS | Encounter Summary ---
Author Organization [facility] Address [address] [place] [address] Care Team Providers Care Director Network Development Name Role Phone Thang Diana [place] [facility] Unavailable Rain Galaviz PA-C Unavailable Tavia Wyatt MD Unavailable Unavailable Erica Farrell DESKTOP PUBLISHING SPECIALIST MANAGER OF COMMUNITY RELATIONS Unavailable Rich Barrett MD Unavailable Neil Kent MD Unavailable Diana Desir Stanislav [facility] Unavailable [phone] Livan Sharif MD Unavailable Catherine Cm MD Unavailable + Valery Veronica PA-C Unavailable [phone] Brea Quinn DESKTOP PUBLISHING SPECIALIST MANAGER OF COMMUNITY RELATIONS Unavailable Brea Quinn DESKTOP PUBLISHING SPECIALIST MANAGER OF COMMUNITY RELATIONS Unavailable Jose Francisco Johnson MD Unavailable Alfonso Renteria MD Unavailable + [phone] Esha Grimm PA-C Primary Care Provider Radha Lomeli DESKTOP PUBLISHING SPECIALIST MANAGER OF COMMUNITY RELATIONS Unavailable [phone] Jelena David OD Unavailable Esha Grimm PA-C Unavailable [phone] Valery Veronica-C Unavailable [phone] Rey Tay MD Unavailable Duane Rockyanne STEVENS Unavailable Philip Dumont MD Unavailable [phone] Meredith Carrera PA-C Unavailable [phone] Neil Kent MD Unavailable Juan Pablo Emmanuel MD Unavailable [phone] Encounter Details Date Type Department Care Team (Late st Contact Info) Description 11/15/2023 MyC Medical Advice [address] [address] Vivian Grant Social History Tobacco [...] Score 0 10/25/2023 [facility] - [...] 12:50 PM CDT Therapy Visit [facility] [place] [phone] [place] [phone] Rustam Medina, PT [facility] [id number] [place] [address] 03/06/2024 3:00 PM CDT Office Visit [facility] [address] [place] [phone] Radha Lomeli APRN MANAGER OF COMMUNITY RELATIONS [address] [place] [address] 03/07/2024 9:00 AM CDT Hospital Encounter [address] [place] [address] Rocky Zepeda DO 500 [place], [place] [address] 03/07/2024 9:00 AM CDT - 03/07/2024 9:30 AM CDT Surgery [address] [place] [phone] ZepedaEvansua, DO 500 [place], [place] 67[address] Esophagoscopy, gastroscopy, duodenoscopy (EGD), combined 06/21/2024 2:00 PM SCIENCE SPECIALIST [facility] [address] [facility], [address] [place] [address] [place] [address] [place] [address] Johnny Penn MD [address] [place] [address] Scheduled Procedures Name Priority Associated Diagnoses Date/Ti sc ESOPHAGOGASTRODUODENOSCOPY Eosinophilic esophagitis Esophageal dysphagia 03/07/2024 9:00 AM CDT documented as of this encounter Visit Diagnoses Not on filedocumented in this encounter Additional Health Concerns Infection Onset Date Last Indicated Resolved Time Rule Out COVID-19 12/26/2023 12/26/2023 12/26/2023 9:50 AM CDT Assessment Noted Time PHQ-9 Depression Total Score: 4 06/20/20 23 8:40 AM SCIENCE SPECIALIST documented as of this encounter Care Teams Director Network Development Relationship Specialty Start Date End Date Esha Grimm PA-C [address] [place] [address] PCP - General Family Medicine 05/04/23 Diana Desir, [facility] [address] [place] [address] Pharmacist Pharmacist 04/17/21 Rain Galaviz PA-C [address] [place] [address] [place] [address] Physician Recycling Crew Supervisor Dermatology 04/28/21 Tavia Wyatt MD [address] [place] [address] [place] [address] Dermatology 07/14/21 Erica Farrell APRN MANAGER OF COMMUNITY RELATIONS [address] [place] [address] Nurse Practitioner Cardiovascular Disease 09/09/21 Rich Barrett MD [address] 412085 Physician Ophthalmology 01/21/22 Neil Kent MD [address] [place] [phone] Dermatology 02/24/22 [facility] 30[address] [place], [place] 421166 Assigned MTM Pharmacist 04/07/22 Livan Sharif MD [address] [address] Cardiovascular Disease 05/14/22 Catherine Cm MD [address] [facility] [place], [place] [address] Cardiovascular Disease 07/21/22 Valery Veronica, PA-C 909 [place], [place] [address] Physician Recycling Crew Supervisor Dermatology 07/21/22 Brea Quinn APRN MANAGER OF COMMUNITY RELATIONS 500 [place] [address] Nurse Practitioner Dermatology 09/21/22 Brea Quinn APRN MANAGER OF COMMUNITY RELATIONS 6401 [place] [address] Assigned Surgical Provider 10/09/22 [place] [address] [address] [facility] 300 [place] [address] Assigned Musculoskeletal Provider 10/09/22 Alfonso Renteria MD [address] [facility] 200 [place], [place] 573766 Assigned Neuroscience Provider 04/02/23 Radha Lomeli APRN MANAGER OF COMMUNITY RELATIONS [address] [facility] [address] [place] [address] Assigned Heart and Vascular Provider 05/28/23 Jelena David OD [address] [facility] [place] [address] Ophthalmology 06/15/23 Esha Grimm PA-C [address] [place] [phone] Assigned PCP 07/16/23 Valery Veronica PA-C 909 [place] [address] Physician Recycling Crew Supervisor Dermatology 09/19/23 Rey Tay MD [address] [place] [address] Gastroenterology 09/20/23 Rocky Zepeda DO [address] [place] [address] Physician Gastroenterology 09/20/23 Philip Dumont MD [address] [place] [address] Physician Ophthalmology 09/22/23 Meredith Carrera PA-C [address] [place] [address] Assigned Gastroenterology Provider 11/01/23 Neil Kent MD [address] [place] [address] Dermatology 11/02/23 [place] [address] [address] Neurological Surgery 12/26/23 documented as of this encounter
--- OUTSIDE RECORDS SUMMARY | 2024-02-12 05:45 | XMS_ITS | Encounter Summary ---
Author Organization [place] Address [address] [place] [address] Care Team Providers Care Stripping And Booking Machine Operator Name Role Phone Thang Diana [place] [facility] Unavailable Rain Galaviz PA-C Unavailable Tavia Wyatt MD Unavailable Unavailable Erica Farrell CUSTOMER SERVICE CONSULTANT CREDIT CLERK Unavailable Rich Barrett MD Unavailable Neil Kent MD Unavailable Diana Desir Stanislav [facility] Unavailable [phone] Livan Sharif MD Unavailable Catherine Cm MD Unavailable + Valery Veronica PA-C Unavailable [phone] Brea Quinn CUSTOMER SERVICE CONSULTANT CREDIT CLERK Unavailable Brea Quinn CUSTOMER SERVICE CONSULTANT CREDIT CLERK Unavailable [phone] Jose Francisco Johnson MD Unavailable Alfonso Renteria MD Unavailable + [phone] Esha Grimm PA-C Primary Care Provider [phone] Radha Lomeli CUSTOMER SERVICE CONSULTANT CREDIT CLERK Unavailable [phone] FrankieJelena OD Unavailable Pao Joseph RN Unavailable Unavailable AlfaWicholincoln Medina PA-C Unavailable [phone] Valery Veronica PA-C Unavailable [phone] Rey Tay MD Unavailable Rocky Zepeda DO Unavailable Philip Dumont MD Unavailable [phone] Meredith CarreraC Unavailable [phone] Neil Kent MD Unavailable Encounter Details Date [...] PHQ-2 Score 0 10/25/2023 [facility] - Occupational Stress Questionnaire [...] exercise at this level? 30 min 03/10/2023 [place] Depression Scale Answer Date Recorded [place] Depression Score 5 01/14/2021 Last EPDS Self [...] PM CDT Therapy Visit [facility] [address] [address] Rustam Medina, PT [facility] [address] [place] [address] 03/06/2024 3:00 PM CDT Office Visit [facility] [place] [address] [facility] [address] [place] [phone] Radha Lomeli, CUSTOMER SERVICE CONSULTANT CREDIT CLERK [address] [place] [address] 03/07/2024 9:00 AM CDT Hospital Encounter [address] 5th [place] [phone] Rocky Zepeda DO 500 [place], [place] [address] 03/07/2024 9:00 AM CDT - 03/07/2024 9:30 AM CDT Surgery [address] [phone] Rocky Zepeda DO 500 [place], [place] [address] Esophagoscopy, gastroscopy, duodenoscopy (EGD), combined 06/21/2024 2:00 PM COMMERCIAL TRAILER TRUCK DRIVER Office Visit [facility] [address] [facility], [address] [place] [phone] [place] [address] [place], [place] [address] Johnny Penn MD [address] [place] [phone] Scheduled Procedures Name Priority Associated Diagnoses Date/Ti ca ESOPHAGOGASTRODUODENOSCOPY Eosinophilic esophagitis Esophageal dysphagia 03/07/2024 9:00 AM CDT documented as of this encounter Visit Diagnoses Not on filedocumented in this encounter Additional Health Concerns Assessment Noted Time PHQ-9 Depression Total Score: 4 06/20/20 23 8:40 AM COMMERCIAL TRAILER TRUCK DRIVER documented as of this encounter Care Teams Stripping And Booking Machine Operator Relationship Specialty Start Date End Date Esha Grimm PA-C [address] [place] [phone] PCP - General Family Medicine 05/04/23 Diana Desir, [facility] [address] [place] [address] Pharmacist Pharmacist 04/17/21 Rain Galaviz PA-C [address] [place] [address] [address] [place] [id number] Physician Nuclear Fuel Processing Technician Dermatology 04/28/21 Tavia Wyatt MD [address] [place] [address] [address] [place] [address] Dermatology 07/14/21 Erica Farrell APRN CREDIT CLERK [address] [place], [place] [address] Nurse Practitioner Cardiovascular Disease 09/09/21 Rich Barrett MD [address] [facility] [address] [place] [address] Physician Ophthalmology 01/21/22 Neil Kent MD 500 [place], [place] 7[address] Dermatology 02/24/22 Diana Desir, [facility] [address] [place], [place] [address] Assigned MTM Pharmacist 04/07/22 Livan Sharif MD [address] [place], [place] [address] Cardiovascular Disease 05/14/22 Catherine Cm MD [address] [place], [place] [address] Cardiovascular Disease 07/21/22 Valery Veronica, PA-C 909 [place], [place] [address] Physician Nuclear Fuel Processing Technician Dermatology 07/21/22 Brea Quinn APRN CREDIT CLERK 500 [place], [place] 8209[address] Nurse Practitioner Dermatology 09/21/22 Brea Quinn APRN CREDIT CLERK 6401 [facility] [place] [address] Assigned Surgical Provider 10/09/22 [place] [address] [place] [address] Assigned Musculoskeletal Provider 10/09/22 Alfonso Renteria MD 5775 [facility] 200 [place], [place] [address] Assigned Neuroscience Provider 04/02/23 Radha Lomeli APRN CREDIT CLERK 6[address] [facility] [address] [place] [address] Assigned Heart and Vascular Provider 05/28/23 Jelena David OD [address] [place] [address] Ophthalmology 06/15/23 Pao Joseph, VJ Personal Advocate & Liaison (PAL) Nurse 08/01/23 11/07/23 Esha Grimm PA-C [address] [place] [phone] Assigned PCP 07/16/23 Valery Veronica PA-C 909 [place], [place] 44[address] Physician Nuclear Fuel Processing Technician Dermatology 09/19/23 Rey Tay MD 909 [place], [place] [address]365 Gastroenterology 09/20/23 Rocky Zepeda DO [address] [place] [address] Physician Gastroenterology 09/20/23 Philip Dumont MD [address] [place] [address] Physician Ophthalmology 09/22/23 Mereidth Carrera PA-C [address] [place] [address] Assigned Gastroenterology Provider 11/01/23 Neil Kent MD [address] [place] [address] Dermatology 11/02/23 documented as of this encounter
--- OUTSIDE RECORDS SUMMARY | 2024-02-12 05:45 | XMS_ITS | Encounter Summary ---
Author Organization [facility] Address [address] [place] [address] Care Team Providers Care Brush Fabrication Supervisor Name Role Phone Thang Diana [place] [facility] Unavailable Rain Galaviz PA-C Unavailable Tavia Wyatt MD Unavailable Unavailable Erica Farrell PROPERTY CLAIM REP ENERGY DERIVATIVES TRADER Unavailable Rich Barrett MD Unavailable Neil Kent MD Unavailable Diana Desir Stanislav [facility] Unavailable [phone] Livan Sharif MD Unavailable Catherine Cm MD Unavailable + Valery Veronica PA-C Unavailable [phone] Brea Quinn PROPERTY CLAIM REP ENERGY DERIVATIVES TRADER Unavailable Brea Quinn PROPERTY CLAIM REP ENERGY DERIVATIVES TRADER Unavailable Jose Francisco Johnson MD Unavailable Alfonso Renteria MD Unavailable + [phone] Esha Grimm PA-C Primary Care Provider Radha Lomeli PROPERTY CLAIM REP ENERGY DERIVATIVES TRADER Unavailable [phone] Jelena David OD Unavailable Alfa Eshalincoln DOWC Unavailable [phone] Valery VeronicaC Unavailable [phone] Rey Tay MD Unavailable Rocky Zepeda Unavailable Philip Dumont MD Unavailable [phone] Meredith CarreraC Unavailable [phone] Neil Kent MD Unavailable Encounter Details Date [...] Score 0 10/25/2023 [facility] - Occupational Stress Questionnaire [...] exercise at this level? 30 min 03/10/2023 [place] Depression Scale Answer Date Recorded [place] Depression Score 5 01/14/2021 Last EPDS Self [...] 02/14/2024 12:50 PM CDT Therapy Visit [facility] [address] [address] Rustam Medina, PT [facility] [address] [place] [address] 03/06/2024 3:00 PM CDT Office Visit [facility] [place] [address] [place] [address] [address] [place] [phone] Radha Lomeli, PROPERTY CLAIM REP ENERGY DERIVATIVES TRADER [address] [place], [place] [address] 03/07/2024 9:00 AM CDT Hospital Encounter [address] [phone] Rocky Zepeda DO 500 [place] [address] 03/07/2024 9:00 AM CDT - 03/07/2024 9:30 AM CDT Surgery [address] [phone] Rocky Zepeda DO 500 [place], [place] 934315 Esophagoscopy, gastroscopy, duodenoscopy (EGD), combined 06/21/2024 2:00 PM WOOL WASHER FEEDER Office Visit [facility] [address] [facility], [address] [place] [address] [place] [address] [place], [place] [phone] Johnny Penn MD 9668 [facility] [place] [id number] Scheduled Procedures Name Priority Associated Diagnoses Date/Ti nd ESOPHAGOGASTRODUODENOSCOPY Eosinophilic esophagitis Esophageal dysphagia 03/07/2024 9:00 AM CDT documented as of this encounter Visit Diagnoses Not on filedocumented in this encounter Additional Health Concerns Assessment Noted Time PHQ-9 Depression Total Score: 4 06/20/20 23 8:40 AM WOOL WASHER FEEDER documented as of this encounter Care Teams Brush Fabrication Supervisor Relationship Specialty Start Date End Date Esha Grimm PA-C [address] [place] [phone] PCP - General Family Medicine 05/04/23 Diana Desir, [facility] 3033 [place] [address] Pharmacist Pharmacist 04/17/21 Rain Galaviz PA-C [address] [place] [address] [address] [place] [address] Physician Central Supply Supervisor Dermatology 04/28/21 Tavia Wyatt MD [address] [place] [address] [address] [place] [address] Dermatology 07/14/21 Erica Farrell APRN ENERGY DERIVATIVES TRADER [address] [place], [place] [address] Nurse Practitioner Cardiovascular Disease 09/09/21 Rich Barrett MD 516 [facility] [place], [place] [address] Physician Ophthalmology 01/21/22 Neil Kent MD 500 [place], [place] 825925 Dermatology 02/24/22 Diana Desir, [facility] [address] [place], [place] 902396 Assigned [facility] Pharmacist 04/07/22 Livan Sharif MD [address] [place] [address] Cardiovascular Disease 05/14/22 Catherine Cm MD [address] [place] [address] Cardiovascular Disease 07/21/22 Valery Veronica PAUcheC 909 [place], [place] 236145 Physician Central Supply Supervisor Dermatology 07/21/22 Brea Quinn APRN ENERGY DERIVATIVES TRADER 500 [place] [address] Nurse Practitioner Dermatology 09/21/22 Brea Quinn APRN ENERGY DERIVATIVES TRADER 6401 [place] [address] Assigned Surgical Provider 10/09/22 [place] [address] [facility] 300 [place] [address] Assigned Musculoskeletal Provider 10/09/22 Alfonso Renteria MD [address] [facility] 200 [place] [address] Assigned Neuroscience Provider 04/02/23 Radha Lomeli APRN ENERGY DERIVATIVES TRADER [address] [facility] [address] [place] [address] Assigned Heart and Vascular Provider 05/28/23 Jelena David OD [facility] [facility] [address] Ophthalmology 06/15/23 Esha Grimm PA-C [address] [place] [phone] Assigned PCP 07/16/23 Valery Veronica PA-C [address] [place] [address] 702085 Physician Central Supply Supervisor Dermatology 09/19/23 Rey Tay MD [address] [place] [address] 370965 Gastroenterology 09/20/23 Rocky Zepeda DO [address] [place] [address] 625235 Physician Gastroenterology 09/20/23 Philip Dumont MD 516 [place], [place] 022[address] Physician Ophthalmology 09/22/23 Meredith Carrera PA-C 9 [place], [place] 705125 Assigned Gastroenterology Provider 11/01/23 Neil Kent MD [address] [place] [address] Dermatology 11/02/23 documented as of this encounter
--- OUTSIDE RECORDS SUMMARY | 2024-02-12 05:45 | XMS_ITS | Encounter Summary ---
Author Organization [facility] Address [address] [place] [address] Care Team Providers Care Electro Mechanic Name Role Phone Thang Diana [place] [facility] Unavailable Rain Galaviz PA-C Unavailable Tavia Wyatt MD Unavailable Unavailable Erica Farrell COLUMNIST DESILVERIZER Unavailable Rich Barrett MD Unavailable Neil Kent MD Unavailable Diana Desir Stanislav [facility] Unavailable [phone] Livan Sharif MD Unavailable Catherine Cm MD Unavailable + Valery Veronica PA-C Unavailable [phone] Brea Quinn COLUMNIST DESILVERIZER Unavailable [phone] Brea Quinn COLUMNIST DESILVERIZER Unavailable [phone] Jose Francisco Johnson MD Unavailable Alfonso Renteria MD Unavailable + [phone] Esha Grimm PA-C Primary Care Provider [phone] Radha Lomeli COLUMNIST DESILVERIZER Unavailable [phone] Jelena David OD Unavailable Esha Grimm PA-C Unavailable [phone] Valery Veronica-C Unavailable [phone] Rey Tay MD Unavailable Duane Rockyanne STEVENS Unavailable Philip Dumont MD Unavailable [phone] Meredith Carrera PA-C Unavailable [phone] Neil Kent MD Unavailable Juan Pablo Emmanuel MD Unavailable [phone] Encounter Details Date Type Department Care Team (Late st Contact Info) Description 11/16/2023 My[facility] Medical Advice [address] [address] Asiya Reddy, RN Social History [...] How often do you attend chur or scientology services? 1 to 4 times per year [...] Answer Date Recorded PHQ-2 Score 0 10/25/2023 [facility] Questionnaire Answer Date [...] exercise at this level? 30 min 03/10/2023 [place] Depression Scale Answer Date Recorded [place] Depression Score 5 01/14/2021 Last EPDS Self [...] Description 02/14/2024 12:50 PM CDT Therapy Visit [facility] [address] [address] Rustam Medina, PT [facility] [id number] [place] [address] 03/06/2024 3:00 PM CDT Office Visit [facility] [address] [place] [phone] Radha Lomeli, COLUMNIST DESILVERIZER [address] [place], [place] 3[address] 03/07/2024 9:00 AM CDT Hospital Encounter [address] 5th [place] [phone] Rocky Zepeda DO 500 [place] [address] 03/07/2024 9:00 AM CDT - 03/07/2024 9:30 AM CDT Surgery [address]th [place] [phone] ZepedaRocky, DO 500 [place], [place] 766225 Esophagoscopy, gastroscopy, duodenoscopy (EGD), combined 06/21/2024 2:00 PM FIELD SALES CONSULTANT Office Visit [facility] [address] [facility], [address] [place] [address] [place] [address] [place] [address] Johnny Penn MD [address] [place] [address] Scheduled Procedures Name Priority Associated Diagnoses Date/Ti mn ESOPHAGOGASTRODUODENOSCOPY Eosinophilic esophagitis Esophageal dysphagia 03/07/2024 9:00 AM CDT documented as of this encounter Visit Diagnoses Not on filedocumented in this encounter Additional Health Concerns Infection Onset Date Last Indicated Resolved Time Rule Out COVID-19 12/26/2023 12/26/2023 12/26/2023 9:50 AM CDT Assessment Noted Time PHQ-9 Depression Total Score: 4 06/20/20 23 8:40 AM FIELD SALES CONSULTANT documented as of this encounter Care Teams Electro Mechanic Relationship Specialty Start Date End Date Esha Grimm PA-C [address] [place] [address] PCP - General Family Medicine 05/04/23 Diana Desir, [facility] [address] [place] [address] Pharmacist Pharmacist 04/17/21 Rain Galaviz PA-C [address] [place] [address] [address] [place] [address] Physician Admitting Counselor Dermatology 04/28/21 Tavia Wyatt MD [address] [place] [address] DR [facility] [place] [address] Dermatology 07/14/21 Erica Farrell APRN DESILVERIZER [address] [place] [address] Nurse Practitioner Cardiovascular Disease 09/09/21 Rich Barrett MD [address] [address] Physician Ophthalmology 01/21/22 Neil Kent MD [address] [place] [address] 032545 Dermatology 02/24/22 Diana Desir, [facility] 3033 [place], [place] 331216 Assigned [place] Pharmacist 04/07/22 Livan Sharif MD [address] [facility]00 [place], [place] 85[address] Cardiovascular Disease 05/14/22 Catherine Cm MD [address] [place] [address] [place] 47[address] Cardiovascular Disease 07/21/22 Valery Veronica, PA-C [address] [place] [address] 827965 Physician Admitting Counselor Dermatology 07/21/22 Brea Qunin APRN DESILVERIZER 500 [place], [place] 603695 Nurse Practitioner Dermatology 09/21/22 Brea Quinn APRN DESILVERIZER 6401 [place] [address] Assigned Surgical Provider 10/09/22 [place] [address] [facility] 300 [place], [place] 306177 Assigned Musculoskeletal Provider 10/09/22 Alfonso Renteria MD 5775 [facility] 200 [place], [place] 112756 Assigned Neuroscience Provider 04/02/23 Radha Lomeli APRN DESILVERIZER [address] 879195 Assigned Heart and Vascular Provider 05/28/23 Jelena David OD [address] [facility] [address] [place] [phone] Ophthalmology 06/15/23 Esha Grimm PA-C [address] [place] [address] Assigned PCP 07/16/23 Valery Veronica PA-C 909 [place], [place] 344205 Physician Admitting Counselor Dermatology 09/19/23 Rey Tay MD [address] [place] [address] Gastroenterology 09/20/23 Rocky Zepeda DO [address] [place] [address] Physician Gastroenterology 09/20/23 Philip Dumont MD [address] [place] [address] Physician Ophthalmology 09/22/23 Meredith Carrera PAUcheC [address] [place] [address] Assigned Gastroenterology Provider 11/01/23 Neil Kent MD [address] [address] Dermatology 11/02/23 [place] [address] [address] Neurological Surgery 12/26/23 documented as of this encounter
--- OUTSIDE RECORDS SUMMARY | 2024-02-12 05:45 | XMS_ITS | Encounter Summary ---
Author Organization [facility] Address [address] [place] [address] Care Team Providers Care Crane Oiler Name Role Phone Thang Diana [place] [facility] Unavailable Rain Galaviz PA-C Unavailable Tavia Wyatt MD Unavailable Unavailable Erica Farrell [facility] CEMENTER HAND Unavailable Rich Barrett MD Unavailable Neil Kent MD Unavailable Diana Desir Stanislav [facility] Unavailable [phone] Livan Sharif MD Unavailable Catherine Cm MD Unavailable + Valery Veronica PA-C Unavailable [phone] Brea Quinn [facility] Unavailable Brea Quinn [facility] Unavailable Jose Francisco Johnson MD Unavailable Alfonso Renteria MD Unavailable + [phone] Esha Grimm PA-C Primary Care Provider Radha Lomeli [facility] CEMENT[facility] HAND Unavailable [phone] FrankieJelenae OD Unavailable Pao Joseph RN Unavailable Unavailable Wicho Grimmlincoln Medina PAUcheC Unavailable [phone] Valery Veronica PA-C Unavailable [phone] Rey Tay MD Unavailable ZepeadRocky Unavailable Philip Dumont MD Unavailable [phone] Meredith CarreraC Unavailable [phone] Neil Kent MD Unavailable Reason for Visit * Reason Comments Urgent Care Intermittent tinglin g in chest and arms for the last year. See nurse call from today Encounter Details Date Type Department Care Team (Late st Contact Info) Description 11/04/2023 6:35 PM CDT Office Visit [facility] [place] [address] [place] [address] Anthony Lazcano PA-C [address] [place] [address] Atypical chest pain (Primary Dx); [...] Recorded PHQ-2 Score 0 10/25/2023 [facility] - Occupational Stress Questionnaire [...] exercise at this level? 30 min 03/10/2023 [place] Depression Scale Answer Date Recorded [place] Depression Score 5 01/14/2021 Last EPDS [...] . She has reportedly stopped taking her jhlm-uqh-mxekypn Byron vitamin, but notes symptoms continue. Last [...] No acute shortness of breath. REVIEW OF [facility] NURSING NOTE FROM TODAY: Nurse Triage SBAR [...] Surgeon: Galo Burrell MD; Location: HEART CARDIAC MATERIALS DEVELOPMENT ENGINEER ESOPHAGOSCOPY, GASTROSCOPY, DUODENOSCOPY (EGD), COMBINED N/A 06/26/2021 [...] I.U.D. Other Topics Concern Parent/sibling w/ CABG, [place] or angioplasty before 65F 55M? Not Asked [...] 30 min Stress: Stress Concern Present (03/10/2023) [place] [facility] - Occupational Stress Questionnaire [...] Description 02/14/2024 12:50 PM CDT Therapy Visit [facility] [address] [place] [phone] Rustam Medina, PT [facility] [address] [place] [address] 03/06/2024 3:00 PM CDT Office Visit [facility] [place] [address] [place] [address] [address] [place] [address] Radha Lomeli, [employer] CEMENTER HAND [address] [place] [address] 03/07/2024 9:00 AM CDT Hospital Encounter [facility] [place] [address] [facility] 5th [place] [phone] Rocky Zepeda, DO 500 [place], [place] [address]455 03/07/2024 9:00 AM CDT - 03/07/2024 9:30 AM CDT Surgery [facility] [address] [facility] 5th [place] [phone] Rocky Zepeda, DO 500 [place], [place] 65[address]85 Esophagoscopy, gastroscopy, duodenoscopy (EGD), combined 06/21/2024 2:00 PM ENGINEERING OPERATIONS LEADER Office Visit [facility] [place] [address] [facility], [address] [place] [address] [place] [address] [place], [place] 39[address] Johnny Penn MD [address] [place], [place] [address]805 Scheduled Procedures Name Priority Associated Diagnoses Date/Ti [...] platelets and differential (11/04/2023 7:36 PM CDT) [facility] WBC Count 7.7 4.0 - 11.0 10e3/uL [...] PA-C LAB - BLOOD ORDERABLES LV LABORATORY [facility] [address] [facility] Lab (no room number, 1st floor of [facility]) [place] [address], [facility] [phone] * (ABNORMAL) Vitamin B6 (11/04/2023 7:36 PM CDT) Vitamin B6 184.4(H) 20.0 - 125.0 nmol/L 11/09/2023 8:17 AM CDT [facility]ee Comment: INTERPRETIVE INFORMATION: Vitamin B6 (Pyridoxal 5-Phosphate) Pyridoxal 5'-phosphate measured in a specimen collected following an 8-hour or overnight fast accurately indicates vitamin B6 nutritional status. Non-fasting specimen concentration reflects recent vitamin intake. This test was developed and its performance characteristics determined by [facility]. It has not been cleared or approved by the US Food and Drug Administration. This test was performed in a CLIA certified laboratory and is intended for clinical purposes. Performed By: [facility] [address] [place] [address] [address] [address] Light Cleaner: Johnny Smith MD, PhD CLIA Number: [id number] Blood BLOOD SPECIMEN / Unknown Venipuncture / Unknown 11/04/2023 7:36 PM CDT 11/04/2023 7:36 PM CDT Anthony Lazcano PA-C LAB - BLOOD ORDERABLES [facility] [address] [place] [address] [phone] * Vitamin B12 (11/04/2023 7:36 PM CDT) Pathologist [facility] Vitamin B12 999 232 - 1,245 pg/mL 11/05/2023 7:43 PM CDT LABORATORY Blood BLOOD SPECIMEN / Unknown Venipuncture / Unknown 11/04/2023 7:36 PM CDT 11/04/2023 7:36 PM CDT Anthony Lazcano PA-C LAB - BLOOD ORDERABLES U LABORATORY [facility] [place] [facility] [address] [facility], [address] [address] * TSH with free T4 reflex (11/04/2023 7:36 PM CDT) TSH 3.02 0.30 - 4.20 uIU/mL 11/05/2023 6:38 PM CDT UU LABORATORY Blood BLOOD SPECIMEN / Unknown Venipuncture / Unknown 11/04/2023 7:36 PM CDT 11/04/2023 7:36 PM CDT Anthony Lazcano PA-C LAB - BLOOD ORDERABLES UU LABORATORY [facility] [place] [facility] 500 [facility], [address] [address] * Basic metabolic panel (Ca, [...] PA-C LAB - BLOOD ORDERABLES UU LABORATORY [facility] [place] [facility] 500 [facility], [address] [place] [address], [facility] * EKG 12-lead complete w/read - [...] Total Score: 4 06/20/20 23 8:40 AM ENGINEERING OPERATIONS LEADER documented as of this encounter Care Teams Crane Oiler Relationship Specialty Start Date End Date Esha Grimm PA-C [address] [place] [address] PCP - General Family Medicine 05/04/23 Diana Desir, [facility] [address]33 [place] [address] Pharmacist Pharmacist 04/17/21 Rain Galaviz PA-C [address] [place] [address] [place] [address] Physician Property Maintenance Supervisor Dermatology 04/28/21 Tavia Wyatt MD [address] [place] [address] [address] [place] [address] Dermatology 07/14/21 Erica Farrell APRN CEMENTER HAND [address] [place] [address] Nurse Practitioner Cardiovascular Disease 09/09/21 Rich Barrett MD 516 [facility] 9A [place], [place] 78[address] Physician Ophthalmology 01/21/22 Neil Kent MD 500 [place], [place] [phone] Dermatology 02/24/22 Diana Desir, [facility] [address] [place], [place] 395776 Assigned MTM Pharmacist 04/07/22 Livan Sharif MD [address] [place] [address] Cardiovascular Disease 05/14/22 Catherine Cm MD [address] [facility] [place] [address] Cardiovascular Disease 07/21/22 Valery Veronica, PAUcheC [address] [place] [address] 679855 Physician Property Maintenance Supervisor Dermatology 07/21/22 Brea Quinn APRN CEMENTER HAND 500 [place], [place] [phone] Nurse Practitioner Dermatology 09/21/22 Brea Quinn APRN CEMENTER HAND [address] [place] [address] Assigned Surgical Provider 10/09/22 [place] [address] [address] [facility] 300 [place] [address] Assigned Musculoskeletal Provider 10/09/22 Alfonso Renteria MD [address] [facility] 200 [place], [place] 544376 Assigned Neuroscience Provider 04/02/23 Radha Lomeli APRN CEMENTER HAND [address] [address] Assigned Heart and Vascular Provider 05/28/23 Jelena David OD [address] [facility] [place] [address] Ophthalmology 06/15/23 Pao Joseph, VJ Personal Advocate & Liaison (PAL) Nurse 08/01/23 11/07/23 Esha Grimm PA-C [address] [place] [phone] Assigned PCP 07/16/23 Valery Veronica PA-C [address] [place] [address] Physician Property Maintenance Supervisor Dermatology 09/19/23 Rey Tay MD 9 [place] [address] Gastroenterology 09/20/23 Rocky Zepeda DO [address] [place] [address] 502605 Physician Gastroenterology 09/20/23 Philip Dumont MD [address] [place] [address] 969925 Physician Ophthalmology 09/22/23 Meredith Carrera PA-C [address] [place] [address] 424565 Assigned Gastroenterology Provider 11/01/23 Neil Kent MD [address] [place] [address] 589570 Dermatology 11/02/23 documented as of this encounter
--- OUTSIDE RECORDS SUMMARY | 2024-02-12 05:45 | XMS_ITS | Encounter Summary ---
Author Organization [place] Address [address] [place] [address] Care Team Providers Care Garbage Collector Driver Name Role Phone Thang Diana Mayers [facility] Unavailable Rain Galaviz PA-C Unavailable [phone] Tavia Wyatt MD Unavailable Unavailable Erica Farrell REAL ESTATE OPERATIONS MANAGER SEWING TECHNIQUES DEMONSTRATOR Unavailable Rich Barrett MD Unavailable Neil Kent MD Unavailable Diana Desir Stanislav [facility] Unavailable [phone] Livan Sharif MD Unavailable Catherine Cm MD Unavailable + Valery Veronica PA-C Unavailable [phone] Brea Quinn REAL ESTATE OPERATIONS MANAGER SEWING TECHNIQUES DEMONSTRATOR Unavailable Brea Quinn REAL ESTATE OPERATIONS MANAGER SEWING TECHNIQUES DEMONSTRATOR Unavailable Jose Francisco Johnson MD Unavailable Alfonso Renteria MD Unavailable + [phone] Esha Grimm PA-C Primary Care Provider [phone] Radha Lomeli REAL ESTATE OPERATIONS MANAGER SEWING TECHNIQUES DEMONSTRATOR Unavailable [phone] Jelena David OD Unavailable Esha Grimm PA-C Unavailable [phone] JeremíasValery PA-C Unavailable Rey Tay MD Unavailable Rocky Zepeda DO Unavailable Philip Dumont MD Unavailable [phone] Meredith Carrera PA-C Unavailable [phone] Neil Kent MD Unavailable Reason for Referral * Consultation (Routine: Next available opening) - Closed Specialty Diagnoses / Procedures Referred By Qian mayers Referred To Contact Diagnoses Tingling of both upper extremities Anthony Doe PA-C [address] [place] [address] Referral ID Status Reason Start Date Expiration Date Visits Re quested Visits Authorized [id number] Closed 11/16/2023 11/15/2024 1 1 Question Answer Referral Type: Per Protocol Scheduling Instructions: [facility] will call you to coordinate your care as prescribed by your provider. If you don't hear from a telemarketing sales representative within 2 business days, please call . Comments Please be aware that coverage of these services is subject to the terms and limitations of your health insurance plan. Call member services at your health plan with any benefit or coverage questions. [facility] will call you to coordinate your care as prescribed by your provider. If you don't hear from a telemarketing sales representative within 2 business days, please call . Reason for Visit * Reason Onset Date Comments Referral 11/16/2023 Encounter Details Date Type Department Care Team (Late st Contact Info) Description 11/16/2023 Telephone [facility] [id number] [place] [phone] Esha Grimm PA-C [address] [place] [phone] Referral Social History Tobacco Use Types Packs/Day [...] do you attend [facility] or sabianism services? 1 to 4 [...] Date Recorded PHQ-2 Score 0 10/25/2023 [facility] - [...] at this level? 30 min 03/10/2023 [place] Depression Scale Answer Date Recorded [place] Depression Score 5 01/14/2021 Last EPDS Self [...] sent below and referral information in a Infratel message for her. Asiya Reddy RN * [...] a referral to see neurology or a realty specialist due tohaving ongoing symptoms of tingling [...] Where to send orders: Place orders within [facility] Could we send this information to you in WebTuner or would you prefer to receive a [...] Description 02/14/2024 12:50 PM CDT Therapy Visit [address] [phone] Rustam Medina, PT [facility] [id number] [place] [address] 03/06/2024 3:00 PM CDT Office Visit [facility] [place] [address] [facility] [address] [place] [phone] Radha Lomeli, REAL ESTATE OPERATIONS MANAGER SEWING TECHNIQUES DEMONSTRATOR [address] [place] [address] 03/07/2024 9:00 AM CDT Hospital Encounter [facility] [address] [facility] 5th [place] [phone] Rocky Zepeda DO [address] [place], [place] [id number] 03/07/2024 9:00 AM CDT - 03/07/2024 9:30 AM CDT Surgery [facility] [address] [facility] [address] 5th [place] [phone] Rocky Zepeda DO [address] [place], [place] [address] Esophagoscopy, gastroscopy, duodenoscopy (EGD), combined 06/21/2024 2:00 PM RIPSAW MATCHER Office Visit [facility] [place] [address] [facility], [address] [place] [address] [place] [address] [place], [place] [phone] Johnny Penn MD [address] [facility] [place] [id number] Scheduled Procedures Name Priority Associated Diagnoses Date/Ti me ESOPHAGOGASTRODUODENOSCOPY Eosinophilic esophagitis Esophageal dysphagia 03/07/2024 9:00 AM CDT Scheduled Referrals Name Type Priority Associated Diagnoses Orde r Schedule Spine Rd Lab Technician Referral Referral Routine: Next available opening Tingling of both upper extremities Expected: 11/16/2023 (Approximate), Expires: 11/15/2024 documented as of this encounter Visit Diagnoses Diagnosis Tingling of both upper extremities- Primary Eosinophilic esophagitis Esophageal dysphagia Dysphagia, pharyngoesophageal phase documented in this encounter Additional Health Concerns Assessment Noted Time PHQ-9 Depression Total Score: 4 06/20/20 23 8:40 AM RIPSAW MATCHER documented as of this encounter Care Teams Garbage Collector Driver Relationship Specialty Start Date End Date Esha Grimm PA-C [address] [place] [phone] PCP - General Family Medicine 05/04/23 [facility] [address] [place] [address] Pharmacist Pharmacist 04/17/21 Rain Galaviz PA-C [address] [place] [address] [address] [place] [address] Physician Instructional Manager Dermatology 04/28/21 Tavia Wyatt MD [address] [place] [address] [address] [facility] [place] [address] Dermatology 07/14/21 Erica Farrell APRN SEWING TECHNIQUES DEMONSTRATOR [address] [place] [address]47[address] Nurse Practitioner Cardiovascular Disease 09/09/21 Rich Barrett MD [address] [place] [address] 690245 Physician Ophthalmology 01/21/22 Neil Kent MD [address] [place] [address] 894025 Dermatology 02/24/22 [facility] [address] [place] [address] Assigned MTM Pharmacist 04/07/22 Livan Sharif MD [address] [place] [id number] Cardiovascular Disease 05/14/22 Catherine Cm MD [address] [place] [address] Cardiovascular Disease 07/21/22 Valery Veronica PA-C [address]09 [place] [address] Physician Instructional Manager Dermatology 07/21/22 Brea Quinn APRN SEWING TECHNIQUES DEMONSTRATOR 500 [place] [address] Nurse Practitioner Dermatology 09/21/22 Brea Quinn APRN SEWING TECHNIQUES DEMONSTRATOR [address] [place] [address] Assigned Surgical Provider 10/09/22 [place] [address] [address] Assigned Musculoskeletal Provider 10/09/22 Alfonso Renteria MD [address] [facility] 200 [place] [address] Assigned Neuroscience Provider 04/02/23 Radha Lomeli APRN SEWING TECHNIQUES DEMONSTRATOR [address] [facility] [address] [place] [address] Assigned Heart and Vascular Provider 05/28/23 Jelena David OD [address] [facility] [place] [id number] Ophthalmology 06/15/23 Esha Grimm PA-C [address] [place] [phone] Assigned PCP 07/16/23 Valery Veronica PA-C [address] [place] [address] 159425 Physician Instructional Manager Dermatology 09/19/23 Rey Tay MD [address] [place] [address] 557995 MD Gastroenterology 09/20/23 Rocky Zepeda DO [address] [place] [address] 903915 Physician Gastroenterology 09/20/23 Philip Dumont MD [address] [place] [address] 538845 Physician Ophthalmology 09/22/23 Meredith Carrera PA-C [address] [place] [address]29595 Assigned Gastroenterology Provider 11/01/23 Neil Kent MD [address] [address] Dermatology 11/02/23 documented as of this encounter
--- OUTSIDE RECORDS SUMMARY | 2024-02-12 05:45 | XMS_ITS | Encounter Summary ---
Author Organization [place] Address [address] [place] [address] Care Team Providers Care Therapy Assistant Name Role Phone Thang Diana Mayers [facility] Unavailable Rain Galaviz PA-C Unavailable Tavia Wyatt MD Unavailable Unavailable Erica Farrell WIND TECHNICIAN MIGRATORY GAME BIRD BIOLOGIST Unavailable Rich Barrett MD Unavailable Neil Kent MD Unavailable Diana Desir Stanislav [facility] Unavailable [phone] Livan Sharif MD Unavailable Catherine Cm MD Unavailable + Valery Veronica PA-C Unavailable [phone] Brea Quinn WIND TECHNICIAN MIGRATORY GAME BIRD BIOLOGIST Unavailable Brea Quinn WIND TECHNICIAN MIGRATORY GAME BIRD BIOLOGIST Unavailable Joes Francisco Johnson MD Unavailable Alfonso Renteria MD Unavailable [phone] Esha Grimm PA-C Primary Care Provider Radha Lomeli WIND TECHNICIAN MIGRATORY GAME BIRD BIOLOGIST Unavailable [phone] Jelena David OD Unavailable Alfa Eshalincoln Medina PA-C Unavailable [phone] JeremíasValery PA-C Unavailable [phone] Rey Tay MD Unavailable Rocky Zepeda DO Unavailable Philip Dumotn MD Unavailable [phone] Meredith Carrera PA-C Unavailable Neil Kent MD Unavailable Reason for Referral * Consultation (Routine: Next available opening) - Pending Review Specialty Diagnoses / Procedures Referred By Qian mayers Referred To Contact Neurology Diagnoses Seizure disorder (H) Genny Hyman PA-C [facility] [address] [facility] [address] [place] [address] Referral ID Status Reason Start Date Expiration Date V isits Requested Visits Authorized [id number] Pending Review 11/21/2023 11/20/2024 999 999 Question Answer Reason for Referral: General Neurology [facility]uling Inst[facility] to coordinate your care as prescribed by your provider. If you don't hear from a security representative within 2 business days, please call . Comments Please be aware that coverage of these services is subject to the terms and limitations of your health insurance plan. Call member services at your health plan with any benefit or coverage questions. [facility] will call you to coordinate your care as prescribed by your provider. If you don't hear from a security representative within 2 business days, please call . Encounter Details Date Type Department Care Team (Late st Contact Info) Description 11/18/2023 Telephone [facility] [address] [facility], [address] [place] [address] Alfonso Renteria MD [address] [facility] [address] [place] [address] Social History Tobacco Use Types Packs/Day Years [...] do you attend chur or gnosticism services? 1 to 4 times [...] Date Recorded PHQ-2 Score 0 10/25/2023 [facility] [...] exercise at this level? 30 min 03/10/2023 [place] Depression Scale Answer Date Recorded [place] Depression Score 5 01/14/2021 Last EPDS Self [...] Description 02/14/2024 12:50 PM CDT Therapy Visit [facility] [address] [place] [phone] Rustam Medina, PT [facility] [address] [place] [address] 03/06/2024 3:00 PM CDT Office Visit [facility] Heart [facility] [address] [facility] [address] [place] [phone] Radha Lomeli APRN MIGRATORY GAME BIRD BIOLOGIST [address] [facility] [address] [place], [place] [phone] 03/07/2024 9:00 AM CDT Hospital Encounter [address] [place] [phone] Rocky Zepeda DO 500 [place], [place] 48[address] 03/07/2024 9:00 AM CDT - 03/07/2024 9:30 AM CDT Surgery [address]th [place] [phone] Rocky Zepeda DO [address] [place], [place] [phone] Esophagoscopy, gastroscopy, duodenoscopy (EGD), combined 06/21/2024 2:00 PM TEACHING MUSIC LESSONS Office Visit [facility] Neurology [facility] - [place] [address] [place] [address], [address] [place] [phone] [place] [address] [place], [place] [address] Johnny Penn MD [address] [place] [address] Scheduled Procedures Name Priority Associated Diagnoses Date/Ti me ESOPHAGOGASTRODUODENOSCOPY Eosinophilic esophagitis Esophageal dysphagia 03/07/2024 9:00 AM CDT Scheduled Referrals Name Type Priority Associated Diagnoses Orde r Schedule Adult Neurology Neonatal Intensive Care Unit Nurse Referral Referral Routine: Next available opening Seizure disorder (H) Expected: 11/21/2023 (Approximate), Expires: 11/20/2024 documented as of this encounter Visit Diagnoses Diagnosis Seizure disorder (H)- Primary Unspecified epilepsy without mention of intractable epilepsy Eosinophilic esophagitis Esophageal dysphagia Dysphagia, pharyngoesophageal phase documented in this encounter Additional Health Concerns Assessment Noted Time PHQ-9 Depression Total Score: 4 06/20/20 23 8:40 AM TEACHING MUSIC LESSONS documented as of this encounter Care Teams Therapy Assistant Relationship Specialty Start Date End Date Esha Grimm PA-C [address] [place] [phone] PCP - General Family Medicine 05/04/23 Diana Desir, [facility] [address] [place] [address] Pharmacist Pharmacist 04/17/21 Rain Galaviz PA-C [address] [place] [address] [address] [place] [address] Physician Meat Cutting Teacher Dermatology 04/28/21 Tavia Wyatt MD [address] [place] [address] [address] [place] [address] Dermatology 07/14/21 Erica Farrell APRN MIGRATORY GAME BIRD BIOLOGIST [address] [place] [id number] Nurse Practitioner Cardiovascular Disease 09/09/21 Rich Barrett MD [address] [facility] [address] [place] [address] Physician Ophthalmology 01/21/22 Neil Kent MD [address] [place], [place] 0[address] MD Dermatology 02/24/22 Diana Desir, [facility] [address] [place], [place] 791586 Assigned [place] Pharmacist 04/07/22 Livan Sharif MD [address] [place], [place] 116[address] Cardiovascular Disease 05/14/22 Catherine Cm MD [address] [place], [place] 208725 Cardiovascular Disease 07/21/22 Valery Veronica, PA-C [address] [place], [place] 4880[address] Physician Meat Cutting Teacher Dermatology 07/21/22 Brea Quinn APRN MIGRATORY GAME BIRD BIOLOGIST [address] [place], [place] 522465 Nurse Practitioner Dermatology 09/21/22 Brea Quinn APRN MIGRATORY GAME BIRD BIOLOGIST [address] [facility] [place] [address] Assigned Surgical Provider 10/09/22 [place] [address] [place] [address] Assigned Musculoskeletal Provider 10/09/22 Alfonso Renteria MD [address] [facility] [address] [place], [place] 4[address] Assigned Neuroscience Provider 04/02/23 Radha Lomeli APRN MIGRATORY GAME BIRD BIOLOGIST [address] [facility] [address] [place] [address] Assigned Heart and Vascular Provider 05/28/23 Jelena David OD [address] [place] [address] Ophthalmology 06/15/23 Esha Grimm PA-C [address] [place] [address] Assigned PCP 07/16/23 Valery Veronica PA-C [address] [place] [address] 863915 Physician Meat Cutting Teacher Dermatology 09/19/23 Rey Tay MD [address] [place] [address] 008275 Gastroenterology 09/20/23 Rocky Zepeda DO [address] [place] [address] [phone] Physician Gastroenterology 09/20/23 Philip Dumont MD 6 [place], [place] 024265 Physician Ophthalmology 09/22/23 Meredith Carrera PA-C [address] [place] [address] 045925 Assigned Gastroenterology Provider 11/01/23 Neil Kent MD [address] [place] [address] 266290 Dermatology 11/02/23 documented as of this encounter
--- OUTSIDE RECORDS SUMMARY | 2024-02-12 05:45 | XMS_ITS | Encounter Summary ---
Author Organization [facility] Address [address] [place] [address] Care Team Providers Care Cancer Researcher Name Role Phone Thang Diana [place] [facility] Unavailable Rain Galaviz PA-C Unavailable Tavia Wyatt MD Unavailable Unavailable Erica Farrell PARCEL POST TRUCK DRIVER SANDSTONE INSPECTOR REPAIRER Unavailable Rich Barrett MD Unavailable Neil Kent MD Unavailable Diana Desir Stanislav [facility] Unavailable [phone] Livan Sharif MD Unavailable Catherine Cm MD Unavailable + Valery Veronica PA-C Unavailable [phone] Brea Quinn PARCEL POST TRUCK DRIVER SANDSTONE INSPECTOR REPAIRER Unavailable Brea Quinn PARCEL POST TRUCK DRIVER SANDSTONE INSPECTOR REPAIRER Unavailable Jose Francisco Johnson MD Unavailable Alfonso Renteria MD Unavailable + [phone] Esha Grimm PA-C Primary Care Provider Radha Lomeli PARCEL POST TRUCK DRIVER SANDSTONE INSPECTOR REPAIRER Unavailable [phone] Jelena David OD Unavailable Esha Grimm Adam DOWC Unavailable [phone] Valery Veronica PA-C Unavailable [phone] Rey Tay MD Unavailable Rocky Zepeda DO Unavailable Philip Dumont MD Unavailable [phone] Meredith CarreraC Unavailable Neil Kent MD Unavailable Reason for Visit * Reason Comments Urgent Care 1 week ago , pain in pelvic area . Urgency Frequency. Feels like she is having bloating in bladder area, achy. Lower back pain . STD testing . Encounter Details Date Type Department Care Team ([facility] st Contact Info) Description 11/14/2023 11:00 AM CDT Office Visit [facility] [place] [address] [place] [address] Yolande Mora MD [address] [facility] [address] [place], [place] [address]280 Urinary problem (Primary Dx); Screen for STD [...] Answer Date Recorded PHQ-2 Score 0 10/25/2023 [facility] of Occupat ional [...] exercise at this level? 30 min 03/10/2023 [place] Depression Scale Answer Date Recorded [place] Depression Score 5 01/14/2021 Last EPDS Self [...] through Care Everywhere. * Vaginal Yeast Infection ([place] Islander) documented in this encounter Progress Notes * [...] antibody; Future - HIV Antigen Antibody Combo [place]; Future - Treponema Abs w Reflex to [...] Negative Ketones Urine Negative Negative mg/dL Specific [place] Urine 1.010 1.003 - 1.035 Blood Urine [...] Description 02/14/2024 12:50 PM CDT Therapy Visit [facility] Services [address] [phone] Rustam Medina, PT [facility] [id number] [place] [address] 03/06/2024 3:00 PM CDT Office Visit [facility] [place] [address] [facility] [address] [place] [phone] Radha Lomeli, PARCEL POST TRUCK DRIVER SANDSTONE INSPECTOR REPAIRER [address] [place], [place] [address] 03/07/2024 9:00 AM CDT Hospital Encounter [facility] [address] [facility] [address] 5th [place] [phone] Rocky Zepeda DO [address] [place] [address] 03/07/2024 9:00 AM CDT - 03/07/2024 9:30 AM CDT Surgery [facility] [address] [facility] [address] 5th [place] [phone] Rocky Zepeda, 500 [place] [address] Esophagoscopy, gastroscopy, duodenoscopy (EGD), combined 06/21/2024 2:00 PM ESCROW OFFICER Office Visit [facility] [place] [address] [facility], [address] [place] [phone] [place] [address] [place], [place] 08[address] Johnny Penn MD [address] [place], [place] [address] Scheduled Procedures Name Priority Associated Diagnoses Date/Ti [...] UM SPECIALTY CORE/PROT/ENDO UM Specialty Core/Prot/Endo 500 [facility], Room [address] * HIV Antigen Antibody Combo [place] (11/14/2023 10:43 AM CDT) HIV Antigen Antibody [...] LAB - BLOOD ORDERABL ES U LABORATORY [facility] [place] [facility] [address] [facility], [address] [phone] * Hepatitis C antibody (11/14/2023 10:43 AM [...] - BLOOD ORDERABL ES Performing Organization Address City/[facility]/ZIP Co de Phone Number U [facility]ATORY [facility] [place] [facility] 500 [facility], Room [address] [phone] * Hepatitis B surface antigen (11/14/2023 10:43 AM CDT) Hepatitis B Surface Antigen Nonreactive Nonreactive 11/14/2023 8:10 PM CDT [facility] Blood BLOOD SPECIMEN / Unknown Venipuncture / Unknown 11/14/2023 10:43 AM CDT 11/14/2023 10:45 AM CDT Yolande Mora MD LAB - BLOOD ORDERABL ES U [facility] [place] [facility] [address] [facility], [address] [place] [phone] * Chlamydia & Gonorrhea by PCR, G[facility]/Range - Clinic Collect (11/14/2023 10:31 AM CDT) Chlamydia Trachomatis Negative Negative 11/15/2023 11:01 AM CDT [facility] Comment: Negative for C. trachomatis rRNA by crozer mediated amplification. A negative result by crozer mediated amplification does not preclude the presence of infection because results are dependent on proper and adequate collection, absence of inhibitors and sufficient rRNA to be detected. Neisseria gonorrhoeae Negative Negative 11/15/2023 11:01 AM CDT [facility] Comment:Negative for N. gono rrhoeae rRNA by crozer mediated amplification. A negative result by crozer mediated amplification does not preclude the presence of C. trachomatis infection because results are dependent on proper and adequate collection, absence of inhibitors and sufficient rRNA to be detected. Swab VAGINAL STRUCTURE / Unknown Non-blood Collection / Unknown 11/14/2023 10:31 AM CDT 11/14/2023 10:32 AM CDT Yolande Mora MD LAB - MICRO GENERAL ORDERABLES [facility] Inf. Diseases Diag. Lab 500 [facility], Room [place] [phone] * Urine Culture Aerobic Bacterial - lab collect (11/14/2023 9:51 AM CDT) Pathologist [facility] Culture <10,000 CFU/mL Mixture of Urogenital Darlene 11/15/2023 10:53 AM CDT [facility] Urine URINE SPECIMEN OBTAINED BY CLEAN CATCH PROCEDURE / Unknown Non-blood Collection / Unknown 11/14/2023 9:51 AM CDT 11/14/2023 10:04 AM CDT Yolande Mora MD LAB - MICRO GENERAL ORDERABLES [facility] Inf. Diseases Diag. Lab 500 [facility], [address] [place] [phone] * (ABNORMAL) UA Microscopic with Reflex to [...] LAB - URINE ORDERABL ES LV LABORATORY [facility] Lab [address] [facility] Lab (no room number, 1st floor of clinic) [place] [address], [facility] [phone] * (ABNORMAL) Wet prep - lab collect [...] LAB - MICRO GENERAL ORDERABLES LV LABORATORY [facility] Lab [address] [facility] Lab (no room number, 1st floor of clinic) [place] [address], [facility] [phone] * (ABNORMAL) UA Macroscopic with reflex to [...] mg/dL 11/14/2023 10:13 AM CDT LABORATORY Specific [place] Urine 1.010 1.003 - 1.035 11/14/2023 10:13 [...] LAB - URINE ORDERABL ES LV LABORATORY [facility] Lab [address] [facility] Lab (no room number, 1st floor of clinic) [place] [address], [facility] [phone] documented in this encounter Visit Diagnoses Diagnosis Urinary problem- Primary Other urinary problems Screen for STD (sexually transmitted disease) Screening examination for venereal disease Yeast infection of the vagina Candidiasis of vulva and vagina Eosinophilic esophagitis Esophageal dysphagia Dysphagia, pharyngoesophageal phase documented in this encounter Additional Health Concerns Assessment Noted Time PHQ-9 Depression Total Score: 4 06/20/20 23 8:40 AM ESCROW OFFICER documented as of this encounter Care Teams Cancer Researcher Relationship Specialty Start Date End Date Esha Grimm PA-C [address] [place] [address] PCP - General Family Medicine 05/04/23 Diana Desir [facility] 30[address] [place] [address] Pharmacist Pharmacist 04/17/21 Rain Galaviz PA-C [address] [place] [address] [address] [facility] [place] [id number] Physician Autocad Electrical Designer Dermatology 04/28/21 Tavia Wyatt MD [address] [place] [address] [address] [facility] [place] [id number] Dermatology 07/14/21 Erica Farrell APRN SANDSTONE INSPECTOR REPAIRER [address] [facility] [address] [place] [address] Nurse Practitioner Cardiovascular Disease 09/09/21 Rich Barrett MD [address] 158555 Physician Ophthalmology 01/21/22 Neil Kent MD 500 [place], [place] [phone] Dermatology 02/24/22 Diana Desir, [facility] [address] [place], [place] [phone] Assigned MTM Pharmacist 04/07/22 Livan Sharif MD [address] [facility] [address] [place], [place] 9860[address] Cardiovascular Disease 05/14/22 Catherine Cm MD [address] [facility]00 [place], [place] 708765 Cardiovascular Disease 07/21/22 Valery Veronica, PAUcheC [address] [place] [address] 853625 Physician Autocad Electrical Designer Dermatology 07/21/22 Brea Quinn APRN SANDSTONE INSPECTOR REPAIRER [address] [place] [address] 129625 Nurse Practitioner Dermatology 09/21/22 Brea Quinn APRN SANDSTONE INSPECTOR REPAIRER [address] [place] [address] 444972 Assigned Surgical Provider 10/09/22 [place] [address] 361667 Assigned Musculoskeletal Provider 10/09/22 Alfonso Renteria MD [address] [facility] 200 [place], [place] [phone] Assigned Neuroscience Provider 04/02/23 Armani Radha Sia PARCEL POST TRUCK DRIVER SANDSTONE INSPECTOR REPAIRER [address] [place], [place] 524155 Assigned Heart and Vascular Provider 05/28/23 Jelena David OD [address] [place] [id number] MD Ophthalmology 06/15/23 Esha Grimm PA-C [address] [place] [phone] Assigned PCP 07/16/23 Valery Veronica PA-C [address] [place] [address] 331265 Physician Autocad Electrical Designer Dermatology 09/19/23 Rey Tay MD [address] [place] [address] 327325 Gastroenterology 09/20/23 Rocky Zepeda DO [address] [place] [address] 516405 Physician Gastroenterology 09/20/23 Philip Dumont MD [address] [place] [address] 592545 Physician Ophthalmology 09/22/23 Meredith Carrera PA-C 9 [place] [address] Assigned Gastroenterology Provider 11/01/23 Neil Kent MD [address] [place] [address] Dermatology 11/02/23 documented as of this encounter
--- OUTSIDE RECORDS SUMMARY | 2024-02-12 05:45 | XMS_ITS | Encounter Summary ---
Author Organization [facility] Address [address] [place] [address] Care Team Providers Care Multicultural Services Librarian Name Role Phone Thang Diana [place] [facility] Unavailable Rain Galaviz PA-C Unavailable Tavia Wyatt MD Unavailable Unavailable Erica Farrell EGG BREAKING MACHINE OPERATOR GAS GENERATOR OPERATOR Unavailable Rich Barrett MD Unavailable Neil Kent MD Unavailable Diana Desir Stanislav [facility] Unavailable [phone] Livan Sharif MD Unavailable Catherine Cm MD Unavailable + Valery Veronica PA-C Unavailable [phone] Brea Quinn EGG BREAKING MACHINE OPERATOR GAS GENERATOR OPERATOR Unavailable Brea Quinn EGG BREAKING MACHINE OPERATOR GAS GENERATOR OPERATOR Unavailable Jose Francisco Johnson MD Unavailable Alfonso Renteria MD Unavailable + [phone] Esha Grimm PA-C Primary Care Provider Radha Lomeli EGG BREAKING MACHINE OPERATOR GAS GENERATOR OPERATOR Unavailable [phone] Jelena David OD Unavailable Esha Grimm PA-C Unavailable [phone] Valery Veronica-C Unavailable [phone] Rey Tay MD Unavailable Rocky Zepeda DO Unavailable Philip Dumont MD Unavailable [phone] Meredith Carrera PA-C Unavailable [phone] Neil Kent MD Unavailable Juan Pablo Emmanuel MD Unavailable [phone] Encounter Details Date Type Department Care Team (Late st Contact Info) Description 11/21/2023 MyC Medical Advice [facility] [address] [place] [address] Sofia Alcantar Social History Tobacco [...] 0 10/25/2023 [facility] [...] exercise at this level? 30 min 03/10/2023 [place] Depression Scale Answer Date Recorded [place] Depression Score 5 01/14/2021 Last EPDS Self [...] Therapy Visit [facility] [place] [address] [place] [phone] Rustam Medina, PT [facility] [address] [place] [address] 03/06/2024 3:00 PM CDT Office Visit [facility] [place] [address] [place] [address] [address] [place] [phone] Radha Lomeli, EGG BREAKING MACHINE OPERATOR GAS GENERATOR OPERATOR [address] [place], [place] 4[address] 03/07/2024 9:00 AM CDT Hospital Encounter [address] [place] [phone] Rocky Zepeda DO 500 [place], [place] 400195 03/07/2024 9:00 AM CDT - 03/07/2024 9:30 AM CDT Surgery [address] [place] [phone] ZepedaRocky, DO 500 [place], [place] [phone] Esophagoscopy, gastroscopy, duodenoscopy (EGD), combined 06/21/2024 2:00 PM ORAL SURGERY PHYSICIAN Office Visit [facility] Neurology [facility] [address] [facility], [address] [place] [address] [place] [address] [place] [address] Johnny Penn MD [address] [place] [address] Scheduled Procedures Name Priority Associated Diagnoses Date/Ti nm ESOPHAGOGASTRODUODENOSCOPY Eosinophilic esophagitis Esophageal dysphagia 03/07/2024 9:00 AM CDT documented as of this encounter Visit Diagnoses Not on filedocumented in this encounter Additional Health Concerns Infection Onset Date Last Indicated Resolved Time Rule Out COVID-19 12/26/2023 12/26/2023 12/26/2023 9:50 AM CDT Assessment Noted Time PHQ-9 Depression Total Score: 4 06/20/20 23 8:40 AM ORAL SURGERY PHYSICIAN documented as of this encounter Care Teams Multicultural Services Librarian Relationship Specialty Start Date End Date Esha Grimm PA-C [address] [place] [phone] PCP - General Family Medicine 05/04/23 Diana Desir, [facility] [address] [place] [address] Pharmacist Pharmacist 04/17/21 Rain Galaviz PA-C [address] [place] [address] [address] [place] [address] Physician Planning Specialist Dermatology 04/28/21 Tavia Wyatt MD [address] [place] [address] DR [address] [facility] [address] Dermatology 07/14/21 Erica Farrell APRN GAS GENERATOR OPERATOR [address] [place] 07[address] Nurse Practitioner Cardiovascular Disease 09/09/21 Rich Barrett MD [address] 801515 Physician Ophthalmology 01/21/22 Neil Kent MD [address] [place] [address] Dermatology 02/24/22 Diana Desir, [facility] 30[address] [place], [place] 116536 Assigned [place] Pharmacist 04/07/22 Livan Sharif MD [address] [facility]00 [place], [place] 298965 Cardiovascular Disease 05/14/22 Catherine Cm MD [address] [facility]00 [place] 853335 Cardiovascular Disease 07/21/22 Valery Veronica, PA-C [address] [place] [address] 919935 Physician Planning Specialist Dermatology 07/21/22 Brea Quinn APRN GAS GENERATOR OPERATOR 500 [place], [place] 853855 Nurse Practitioner Dermatology 09/21/22 Brea Quinn APRN GAS GENERATOR OPERATOR 6401 [place] [address] Assigned Surgical Provider 10/09/22 [place] [address] [address] [facility] 300 [place], [place] [address]87 Assigned Musculoskeletal Provider 10/09/22 Alfonso Renteria MD 5775 [facility] 200 [place], [place] [phone] Assigned Neuroscience Provider 04/02/23 Radha Lomeli APRN GAS GENERATOR OPERATOR [address] [place] [address] [phone] [place], [place] 05[address]75 Assigned Heart and Vascular Provider 05/28/23 Jelena David OD [address] [place] [address] Ophthalmology 06/15/23 Esha Grimm PA-C [address] [place] [phone] Assigned PCP 07/16/23 Valery Veronica PA-C [address]09 [place], [place] 0[address] Physician Planning Specialist Dermatology 09/19/23 Rey Tay MD [address] [place] [address] Gastroenterology 09/20/23 Rocky Zepeda DO [address] [place] [address] Physician Gastroenterology 09/20/23 Philip Dumont MD [address] [place] [address] Physician Ophthalmology 09/22/23 Meredith Carrera PA-C [address] [place] [address] Assigned Gastroenterology Provider 11/01/23 Neil Kent MD [address] [address] Dermatology 11/02/23 [place] [address] [address] Neurological Surgery 12/26/23 documented as of this encounter
--- OUTSIDE RECORDS SUMMARY | 2024-02-12 05:46 | XMS_ITS | Encounter Summary ---
Author Organization [facility] Address [address] [place] [address] Care Team Providers Care Message And Delivery Service Pricer Name Role Phone Thang Diana [place] [facility] Unavailable Rain Galaviz PA-C Unavailable Tavia Wyatt MD Unavailable Unavailable Erica Farrell MIXER OPERATOR HELPER HOT METAL STREETCAR REPAIRER Unavailable Rich Barrett MD Unavailable Neil Kent MD Unavailable Diana Desir Stanislav [facility] Unavailable [phone] Livan Sharif MD Unavailable Catherine Cm MD Unavailable + Valery Veronica PA-C Unavailable [phone] Brea Quinn MIXER OPERATOR HELPER HOT METAL STREETCAR REPAIRER Unavailable Brea Quinn MIXER OPERATOR HELPER HOT METAL STREETCAR REPAIRER Unavailable Jose Francisco Johnson MD Unavailable Alfonso Renteria MD Unavailable + [phone] Esha Grimm PA-C Primary Care Provider Radha Lomeli MIXER OPERATOR HELPER HOT METAL STREETCAR REPAIRER Unavailable [phone] Jelena David OD Unavailable Pao Joseph RN Unavailable Unavailable AlfaEsha Adam PA-C Unavailable [phone] Valery Veronica PA-C Unavailable [phone] Rey Tya MD Unavailable Rocky Zepeda DO Unavailable Philip Dumont MD Unavailable [phone] Meredith Carrera PA-C Unavailable [phone] Neil Kent MD Unavailable Juan Pablo Emmanuel MD Unavailable [phone] Encounter Details Date Type Department Care Team (Late st Contact Info) Description 08/31/2023 MyC Medical Advice [facility] [address] [facility] [address] [place] [address] Amalia Reyes, VJ Social History [...] Answer Date Recorded PHQ-2 Score 0 06/20/2023 [facility] - Occupational Stress Questionnaire Answer Date [...] exercise at this level? 30 min 03/10/2023 [place] Depression Scale Answer Date Recorded [place] Depression Score 5 01/14/2021 Last EPDS [...] Description 02/14/2024 12:50 PM CDT Therapy Visit [facility] Rehabilitation Services [address] [address] Rustam Medina, PT [facility] [address] [place] [address] 03/06/2024 3:00 PM CDT Office Visit [facility] [place] [address] [place] [address] [address] [place] [phone] Radha Lomeli, MIXER OPERATOR HELPER HOT METAL STREETCAR REPAIRER [address] [place] [address] 03/07/2024 9:00 AM CDT Hospital Encounter [address] 5th [place] [phone] Rocky Zepeda DO 500 [place] [address] 03/07/2024 9:00 AM CDT - 03/07/2024 9:30 AM CDT Surgery [address] 5th [place] [phone] Rocky Zepeda, DO 500 [place], [place] [address]385 Esophagoscopy, gastroscopy, duodenoscopy (EGD), combined 06/21/2024 2:00 PM EMG TECHNICIAN Office Visit [facility] [place] [address] [facility], [address] [place] [address] [place] [address] [address] [place] [address] Johnny Penn MD [address] [place] [address] Scheduled Procedures Name Priority Associated Diagnoses Date/Ti wa ESOPHAGOGASTRODUODENOSCOPY Eosinophilic esophagitis Esophageal dysphagia 03/07/2024 9:00 AM CDT documented as of this encounter Visit Diagnoses Not on filedocumented in this encounter Additional Health Concerns Infection Onset Date Last Indicated Resolved Time Rule Out COVID-19 12/26/2023 12/26/2023 12/26/2023 9:50 AM CDT Assessment Noted Time PHQ-9 Depression Total Score: 4 06/20/20 23 8:40 AM EMG TECHNICIAN documented as of this encounter Care Teams Message And Delivery Service Pricer Relationship Specialty Start Date End Date Esha Girmm PA-C [address] [place] [phone] PCP - General Family Medicine 05/04/23 Diana Desir, [facility] 3033 [place] [address] Pharmacist Pharmacist 04/17/21 Rain Galaviz PA-C [address] [place] [address] [address] [place] [address] Physician Specification Manager Dermatology 04/28/21 Tavia Wyatt MD [address] [place] [address] [place] [address] Dermatology 07/14/21 Erica Farrell APRN STREETCAR REPAIRER [address] [place] [address] Nurse Practitioner Cardiovascular Disease 09/09/21 Rich Barrett MD [address] [place] [address] 218525 Physician Ophthalmology 01/21/22 Neil Kent MD [address] [place] [address] 109425 Dermatology 02/24/22 Diana Desir, [facility] [address] [place] [address] 480116 Assigned [facility] Pharmacist 04/07/22 Livan Sharif MD [address], [facility]00 [place] 332775 Cardiovascular Disease 05/14/22 Catherine Cm MD [address] [facility]00 [place] 2[address]95 Cardiovascular Disease 07/21/22 Valery Veronica, PA-C [address] [place] [address] 070915 Physician Specification Manager Dermatology 07/21/22 Brea Quinn APRN STREETCAR REPAIRER 500 [place], [place] 0[address]75 Nurse Practitioner Dermatology 09/21/22 Brea Quinn APRN STREETCAR REPAIRER 6401 [place], [place] 267772 Assigned Surgical Provider 10/09/22 [place] [address] 74[address] Assigned Musculoskeletal Provider 10/09/22 Alfonso Renteria MD 5775 [facility] 200 [place], [place] 123326 Assigned Neuroscience Provider 04/02/23 Radha Lomeli APRN STREETCAR REPAIRER [address] 413195 Assigned Heart and Vascular Provider 05/28/23 Jelena David OD [address] [facility] [address] [place] [phone] Ophthalmology 06/15/23 Pao Joseph, VJ Personal Advocate & Liaison (PAL) Nurse 08/01/23 11/07/23 Esha Grimm PA-C [address] [place] [phone] Assigned PCP 07/16/23 Valery Veronica PA-C [address] [place] [address] Physician Specification Manager Dermatology 09/19/23 Rey Tay MD [address] [place] [address] MD Gastroenterology 09/20/23 Rocky Zepeda DO [address] [place] [address] Physician Gastroenterology 09/20/23 Philip Dumont MD [address] [place] [address] Physician Ophthalmology 09/22/23 Meredith Carrera PA-C [address] [place] [address] Assigned Gastroenterology Provider 11/01/23 Neil Kent MD [address] [address] Dermatology 11/02/23 [place] [address] [place] [address] Neurological Surgery 12/26/23 documented as of this encounter
--- OUTSIDE RECORDS SUMMARY | 2024-02-12 05:46 | XMS_ITS | Encounter Summary ---
Author Organization [place] Address [address] [place] [address]45 Care Team Providers Care Pipeline Superintendent Division Name Role Phone Thang Diana [place] [facility] Unavailable [phone] Rain Galaviz PA-C Unavailable Tavia Wyatt MD Unavailable Unavailable Erica Farrell MANAGER BUSINESS BANKING REGISTERED LAND SURVEYOR Unavailable Rich Barrett MD Unavailable Neil Kent MD Unavailable Diana Desir Stanislav [facility] Unavailable [phone] Livan Sharif MD Unavailable Catherine Cm MD Unavailable + Valery Veronica PA-C Unavailable [phone] Brea Quinn MANAGER BUSINESS BANKING REGISTERED LAND SURVEYOR Unavailable Brea Quinn MANAGER BUSINESS BANKING REGISTERED LAND SURVEYOR Unavailable Jose Francisco Johnson MD Unavailable Alfonso Renteria MD Unavailable + [phone] Esha Grimm PA-C Primary Care Provider Radha Lomeli MANAGER BUSINESS BANKING REGISTERED LAND SURVEYOR Unavailable [phone] FrankieJelena OD Unavailable Pao Joseph RN Unavailable Unavailable Alfa Eshalincoln DOWC Unavailable [phone] Valery VeronicaC Unavailable [phone] Rey Tay MD Unavailable Rocky Zepeda DO Unavailable Philip Dumont MD Unavailable [phone] Meredith Carrera PA-C Unavailable Neil Kent MD Unavailable Juan Pablo Emmanuel MD Unavailable [phone] Reason for Visit * Reason Onset Date Comments Medication Question 10/21/2023 omeprazole Encounter Details Date Type Department Care Team (Late st Contact Info) Description 10/21/2023 Telephone [facility] [address]th [place] [address] Meredith Carrera PA-C [address] [place] [address] Medication Question (omeprazole ) Social History [...] Answer Date Recorded PHQ-2 Score 0 10/25/2023 [facility] - Occupational Stress Questionnaire Answer Date [...] exercise at this level? 30 min 03/10/2023 [place] Depression Scale Answer Date Recorded [place] Depression Score 5 01/14/2021 Last EPDS Self [...] in an abandoned building, in an overnight fpc, or couch-surfing.) Yes 07/14/2023 Are you worried [...] Mayra Rajput - 10/21/2023 4:42 PM CDT [facility] Phone Message May a detailed message be left on voicemail: yes Reason for Call: Other: Pt called in asking to speak to a nurse about omeprazole that she is on. Ptdeclined to schedule follow up until she speaks to someone from care team about the medication. Thank you. Action Taken: Message routed to: [facility][[id number]] Travel Screening: Not Applicable documented in this encounter Plan of Treatment Upcoming Encounters Date Type Department Care Team (Latest Contact Info) Description 02/14/2024 12:50 PM CDT Therapy Visit [address] [phone] Rustam Medina, PT [facility] [address] [place] [address] 03/06/2024 3:00 PM CDT Office Visit [facility] [address] [facility] [address] [place] [address] Lomeli Radha Stovall, MANAGER BUSINESS BANKING REGISTERED LAND SURVEYOR [address] [place] [address] 03/07/2024 9:00 AM CDT Hospital Encounter [facility] [address] [place] [address] 5th [place] [phone] Rocky Zepeda DO [address] [place], [place] [address] 03/07/2024 9:00 AM CDT - 03/07/2024 9:30 AM CDT Surgery [address] 5th [place] [phone] Rocky Zepeda DO [address] [place], [place] [address] Esophagoscopy, gastroscopy, duodenoscopy (EGD), combined 06/21/2024 2:00 PM SAIL FINISHER HAND Office Visit [facility] [address] [place] [address], [address] [place] [phone] [place] [address] [place] [address] Johnny Penn MD [address] [place] [place] [address] Scheduled Procedures Name Priority Associated Diagnoses Date/Ti de ESOPHAGOGASTRODUODENOSCOPY Eosinophilic esophagitis Esophageal dysphagia 03/07/2024 9:00 AM CDT documented as of this encounter Visit Diagnoses Not on filedocumented in this encounter Additional Health Concerns Infection Onset Date Last Indicated Resolved Time Rule Out COVID-19 12/26/2023 12/26/2023 12/26/2023 9:50 AM CDT Assessment Noted Time PHQ-9 Depression Total Score: 4 06/20/20 23 8:40 AM SAIL FINISHER HAND documented as of this encounter Care Teams Pipeline Superintendent Division Relationship Specialty Start Date End Date Esha Grimm PA-C [address] [place] [address] PCP - General Family Medicine 05/04/23 Diana Desir, [facility] [address] [place] [address] Pharmacist Pharmacist 04/17/21 Rain Galaviz PA-C [address] [place] [address] [address] [place] [address] Physician Band Bias Machine Operator Dermatology 04/28/21 Tavia Wyatt MD [address] [place] [address] [address] [facility] [address] Dermatology 07/14/21 Erica Farrell APRN REGISTERED LAND SURVEYOR [address] [facility] [address] [place] [address] Nurse Practitioner Cardiovascular Disease 09/09/21 Rich Barrett MD [address] [facility] [address] [place], [place] 36[address] Physician Ophthalmology 01/21/22 Neil Kent MD 500 [place], [place] 026155 Dermatology 02/24/22 [facility] 3033 [place] [address] Assigned MTM Pharmacist 04/07/22 Livan Sharif MD [address], [facility] [address] [place] [address] Cardiovascular Disease 05/14/22 Catherine Cm MD [address] [facility] [address] [place], [place] 7[address] Cardiovascular Disease 07/21/22 Valery Veronica PAUcheC 909 [place], [place] [address]255 Physician Band Bias Machine Operator Dermatology 07/21/22 Brea Quinn APRN REGISTERED LAND SURVEYOR 500 [place], [place] 508555 Nurse Practitioner Dermatology 09/21/22 Brea Quinn APRN REGISTERED LAND SURVEYOR 64[address] [place], [place] 150972 Assigned Surgical Provider 10/09/22 [place] [address] [address] [facility] 300 [place] [address] Assigned Musculoskeletal Provider 10/09/22 Alfonso Renteria MD [address] [facility] 200 [place] [address] Assigned Neuroscience Provider 04/02/23 Radha Lomeli APRN REGISTERED LAND SURVEYOR [address] [place], [place] [address] Assigned Heart and Vascular Provider 05/28/23 Jelena David OD [address] [facility] [place] [address] MD Ophthalmology 06/15/23 Pao Joseph, VJ Personal Advocate & Liaison (PAL) Nurse 08/01/23 11/07/23 Esha Grimm PA-C [address] [place] [address] Assigned PCP 07/16/23 Valery Veronica PA-C [address] [place] [address] 795445 Physician Band Bias Machine Operator Dermatology 09/19/23 Rey Tay MD [address] [place] [address] 879135 Gastroenterology 09/20/23 Rocky Zepeda DO [address] [place] [address] 271295 Physician Gastroenterology 09/20/23 Philip Dumont MD [address] [place] [address] 401775 Physician Ophthalmology 09/22/23 Meredith Carrera PA-C [address] [place] [address] Assigned Gastroenterology Provider 11/01/23 Neil Kent MD [address] [place] [address] Dermatology 11/02/23 [place] [address] [address] Neurological Surgery 12/26/23 documented as of this encounter
--- OUTSIDE RECORDS SUMMARY | 2024-02-12 05:46 | XMS_ITS | Encounter Summary ---
Author Organization [place] Address [address] [place] [address] Care Team Providers Care Windsurfing Instructor Name Role Phone Thang Diana [place] [facility] Unavailable Rain Galaviz PA-C Unavailable Tavia Wyatt MD Unavailable Unavailable Erica Farrell APPEALS REVIEWER VETERAN ROSE GRADER Unavailable Rich Barrett MD Unavailable Neil Kent MD Unavailable Diana Desir Stanislav [facility] Unavailable [phone] Livan Sharif MD Unavailable Catherine Cm MD Unavailable + Valery Veronica PA-C Unavailable [phone] Brea Quinn APPEALS REVIEWER VETERAN ROSE GRADER Unavailable Brea Quinn APPEALS REVIEWER VETERAN ROSE GRADER Unavailable [phone] Jose Francisco Johnson MD Unavailable Alfonso Renteria MD Unavailable + [phone] Esha Grimm PA-C Primary Care Provider [phone] Radha Lomeli APPEALS REVIEWER VETERAN ROSE GRADER Unavailable [phone] FrankieJelenae OD Unavailable Pao Joseph RN Unavailable Unavailable Jesus Grimmyllincoln Medina PA-C Unavailable [phone] Valery Veronica PA-C Unavailable [phone] Rey Tay MD Unavailable Rocky Zepeda DO Unavailable Philip Dumont MD Unavailable [phone] Meredith Carrera PA-C Unavailable [phone] Neil Kent MD Unavailable Juan Pablo Emmanuel MD Unavailable [phone] Encounter Details Date Type Department Care Team (Late st Contact Info) Description 10/24/2023 MyC Medical Advice [facility] [address] 4th [place] [address] Kenneth Denson Social History Tobacco [...] Answer Date Recorded PHQ-2 Score 0 10/25/2023 [facility] - Occupational Stress Questionnaire Answer Date [...] exercise at this level? 30 min 03/10/2023 [place] Depression Scale Answer Date Recorded [place] Depression Score 5 01/14/2021 Last EPDS Self [...] Therapy Visit [facility] [address] [address] Rustam Medina, PT [facility] [id number] [place] [address] 03/06/2024 3:00 PM CDT Office Visit [facility] [place] [address] [facility] [address] [place] [phone] Radha Lomeli, APPEALS REVIEWER VETERAN ROSE GRADER [address] [place] [address] 03/07/2024 9:00 AM CDT Hospital Encounter [facility] [address] [facility] [address] 5th [place] [phone] Rocky Zepeda DO 500 [place] [address] 03/07/2024 9:00 AM CDT - 03/07/2024 9:30 AM CDT Surgery [place] [address] [facility] [address] 5th [place] [phone] Rocky Zepeda, DO 500 [place], [place] 40[address] Esophagoscopy, gastroscopy, duodenoscopy (EGD), combined 06/21/2024 2:00 PM SHACKLER Office Visit [facility] [place] [address] [facility], [address] [place] [address] [place] [address] [place] [address] Johnny Penn MD [address] [place] [place] [address] Scheduled Procedures Name Priority Associated Diagnoses Date/Ti de ESOPHAGOGASTRODUODENOSCOPY Eosinophilic esophagitis Esophageal dysphagia 03/07/2024 9:00 AM CDT documented as of this encounter Visit Diagnoses Not on filedocumented in this encounter Additional Health Concerns Infection Onset Date Last Indicated Resolved Time Rule Out COVID-19 12/26/2023 12/26/2023 12/26/2023 9:50 AM CDT Assessment Noted Time PHQ-9 Depression Total Score: 4 06/20/20 23 8:40 AM SHACKLER documented as of this encounter Care Teams Windsurfing Instructor Relationship Specialty Start Date End Date Esha Grimm PA-C [address] [place] [address] PCP - General Family Medicine 05/04/23 Diana Desir [facility] [address] [place] [address] Pharmacist Pharmacist 04/17/21 Rain Galaviz PA-C [address] [place] [address] [address] [place] [address] Physician Winemaker Dermatology 04/28/21 Tavia Wyatt MD [address] [place] [address] [address], [place] [address] Dermatology 07/14/21 Erica Farrell APRN ROSE GRADER [address] [place] [address] Nurse Practitioner Cardiovascular Disease 09/09/21 Rich Barrett MD [address] [place] [address] 235995 Physician Ophthalmology 01/21/22 Neil Kent MD [address] [place] [address] 404605 Dermatology 02/24/22 [facility] [address] [place] [address] Assigned [place] Pharmacist 04/07/22 Livan Sharif MD [address], [facility] [place] 4[address] Cardiovascular Disease 05/14/22 Catherine Cm MD [address] [facility] [place] 329165 Cardiovascular Disease 07/21/22 Valery Veronica, PA-C [address] [place] [address] 251485 Physician Winemaker Dermatology 07/21/22 Brea Quinn APRN ROSE GRADER 500 [place], [place] 672605 Nurse Practitioner Dermatology 09/21/22 Brea Quinn APRN ROSE GRADER 64[address] [place] [address] Assigned Surgical Provider 10/09/22 [place] [address] 565647 Assigned Musculoskeletal Provider 10/09/22 Alfonso Renteria MD [address] 625686 Assigned Neuroscience Provider 04/02/23 Radha Lomeli APRN ROSE GRADER [address] 587565 Assigned Heart and Vascular Provider 05/28/23 Jelena David OD [address] [facility] [address] [place] [id number] Ophthalmology 06/15/23 Pao Joseph, VJ Personal Advocate & Liaison (PAL) Nurse 08/01/23 11/07/23 Esha Grimm PA-C [address] [place] [address] Assigned PCP 07/16/23 Valery Veronica PA-C [address] [place] [address] Physician Winemaker Dermatology 09/19/23 Rey Tay MD [address] [place] [address] MD Gastroenterology 09/20/23 Rocky Zepeda DO [address] [place] [address] Physician Gastroenterology 09/20/23 Philip Dumont MD [address] [place] [address] Physician Ophthalmology 09/22/23 Meredith Carrera PA-C [address] [place] [address] Assigned Gastroenterology Provider 11/01/23 Neil Kent MD [address] [place] [address] 062390 Dermatology 11/02/23 [place] [address] [place], [place] 572567 Neurological Surgery 12/26/23 documented as of this encounter
--- OUTSIDE RECORDS SUMMARY | 2024-02-12 05:46 | XMS_ITS | Encounter Summary ---
Author Organization [place] Address [address] [place] [address] Care Team Providers Care Morale Officer Name Role Phone Thang Diana [place] [facility] Unavailable Rain Galaviz PA-C Unavailable Tavia Wyatt MD Unavailable Unavailable Erica Farrell RECRUITING AND SELECTION CONSULTANT DIRECTOR DISTRIBUTION Unavailable Rich Barrett MD Unavailable Neli Kent MD Unavailable Diana Desir Stanislav [facility] Unavailable [phone] Livan Sharif MD Unavailable Catherine Cm MD Unavailable + Valery Veronica PA-C Unavailable [phone] Brea Quinn RECRUITING AND SELECTION CONSULTANT DIRECTOR DISTRIBUTION Unavailable Brea Quinn RECRUITING AND SELECTION CONSULTANT DIRECTOR DISTRIBUTION Unavailable Jose Francisco Johnson MD Unavailable Alfonso Renteria MD Unavailable + [phone] Esha Grimm PA-C Primary Care Provider [phone] Radha Lomeli RECRUITING AND SELECTION CONSULTANT DIRECTOR DISTRIBUTION Unavailable [phone] Jelena David OD Unavailable Pao Joseph RN Unavailable Unavailable AlfaWicholincoln Medina PA-C Unavailable [phone] Valery Veronica PA-C Unavailable [phone] Rey Tay MD Unavailable Rocky Zepeda DO Unavailable Philip Dumont MD Unavailable [phone] Meredith Carrera-C Unavailable [phone] Neil Kent MD Unavailable Juan Pablo Emmanuel MD Unavailable [phone] Encounter Details Date Type Department Care Team (Late st Contact Info) Description 08/25/2023 MyC Medical Advice [address] [address] [facility] 3033 [place] [address] Social History Tobacco Use Types [...] Answer Date Recorded PHQ-2 Score 0 06/20/2023 [facility] - [...] exercise at this level? 30 min 03/10/2023 [place] Depression Scale Answer Date Recorded [place] Depression Score 5 01/14/2021 Last EPDS [...] 02/14/2024 12:50 PM CDT Therapy Visit [facility] [address] [phone] Rustam Medina, PT [facility] [id number] [place] [address] 03/06/2024 3:00 PM CDT Office Visit [facility] [place] [address] [place] [address] [address] [place] [phone] Radha Lomeli E, RECRUITING AND SELECTION CONSULTANT DIRECTOR DISTRIBUTION [address] [place], [place] 25[address] 03/07/2024 9:00 AM CDT Hospital Encounter [facility] [address] [facility] [address] 5th [place] [phone] Rocky Zepeda DO 500 [place], [place] [address] 03/07/2024 9:00 AM CDT - 03/07/2024 9:30 AM CDT Surgery [facility] [address] [facility] [address] 5th [place] [phone] Rocky Zepeda DO 500 [place], [place] 8[address] Esophagoscopy, gastroscopy, duodenoscopy (EGD), combined 06/21/2024 2:00 PM DIRECTOR DATABASE Office Visit [facility] [place] [address] [facility], [address] [place] [address] [place] [address] [place] [address] Johnny Penn MD [address] [facility] [place] [address] Scheduled Procedures Name Priority Associated Diagnoses Date/Ti oh ESOPHAGOGASTRODUODENOSCOPY Eosinophilic esophagitis Esophageal dysphagia 03/07/2024 9:00 AM CDT documented as of this encounter Visit Diagnoses Not on filedocumented in this encounter Additional Health Concerns Infection Onset Date Last Indicated Resolved Time Rule Out COVID-19 12/26/2023 12/26/2023 12/26/2023 9:50 AM CDT Assessment Noted Time PHQ-9 Depression Total Score: 4 06/20/20 23 8:40 AM DIRECTOR DATABASE documented as of this encounter Care Teams Morale Officer Relationship Specialty Start Date End Date Esha Grimm PA-C [address] [place] [phone] PCP - General Family Medicine 05/04/23 Diana Desir, [facility] [address] [place] [address] Pharmacist Pharmacist 04/17/21 Rain Galaviz PA-C [address] [place] [address] [address] [place] [address] Physician Heavy Equipment Plumbing Supervisor Dermatology 04/28/21 Tavia Wyatt MD [address] [place] [address] [place] [address] Dermatology 07/14/21 Erica Farrell APRN DIRECTOR DISTRIBUTION [address] [place] [address] Nurse Practitioner Cardiovascular Disease 09/09/21 Rich Barrett MD [address] 259[address] Physician Ophthalmology 01/21/22 Neil Kent MD 500 [place], [place] 9[address]75 Dermatology 02/24/22 Diana Desir, [facility] [address] [place] [address] Assigned MTM Pharmacist 04/07/22 Livan Sharif MD [address] [place] [address] Cardiovascular Disease 05/14/22 Catherine Cm MD [address] [place] [address] Cardiovascular Disease 07/21/22 JeremíasValery damon PA-C 909 [place] [address] Physician Heavy Equipment Plumbing Supervisor Dermatology 07/21/22 Brea Quinn APRN DIRECTOR DISTRIBUTION 500 [place] [address] Nurse Practitioner Dermatology 09/21/22 Brea Quinn APRN DIRECTOR DISTRIBUTION 6401 [place] [address] Assigned Surgical Provider 10/09/22 [place] [address] [place] [address] Assigned Musculoskeletal Provider 10/09/22 Alfonso Renteria MD [address] [facility] 200 [place], [place] 398386 Assigned Neuroscience Provider 04/02/23 Radha Lomeli APRN DIRECTOR DISTRIBUTION [address] [facility] [address] [place], [place] 3[address]85 Assigned Heart and Vascular Provider 05/28/23 Jelena David OD [address] [place] [address] Ophthalmology 06/15/23 Pao Joseph, VJ Personal Advocate & Liaison (PAL) Nurse 08/01/23 11/07/23 Esha Grimm PA-C [address] [place] [address] Assigned PCP 07/16/23 Valery Veronica PA-C [address] [place] [address] Physician Heavy Equipment Plumbing Supervisor Dermatology 09/19/23 Rey Tay MD [address] [place] [address] 564495 MD Gastroenterology 09/20/23 Rocky Zepeda DO [address] [place] [address] 812925 Physician Gastroenterology 09/20/23 Philip Dumont MD [address] [place] [address] Physician Ophthalmology 09/22/23 Meredith Carrera PA-C [address] [place] [address] Assigned Gastroenterology Provider 11/01/23 Neil Kent MD [address] [address] Dermatology 11/02/23 [place] [address] [place] [address] Neurological Surgery 12/26/23 documented as of this encounter
--- OUTSIDE RECORDS SUMMARY | 2024-02-12 05:46 | XMS_ITS | Encounter Summary ---
Author Organization [place] Address [address] [place] [address] Care Team Providers Care Advanced Research Programs Director Name Role Phone Thang Diana [place] [facility] Unavailable Rain Galaviz PA-C Unavailable [phone] Tavia Wyatt MD Unavailable Unavailable Erica Farrell BARN BOSS POCKET CUTTER Unavailable Rich Barrett MD Unavailable Neil Kent MD Unavailable Diana Desir Stanislav [facility] Unavailable [phone] Livan Sharif MD Unavailable Catherine Cm MD Unavailable + Valery Veronica PA-C Unavailable [phone] Brea Quinn BARN BOSS POCKET CUTTER Unavailable Brea Quinn BARN BOSS POCKET CUTTER Unavailable [phone] Jose Francisco Johnson MD Unavailable Alfonso Renteria MD Unavailable + [phone] Esha Grimm PA-C Primary Care Provider Radha Lomeli BARN BOSS POCKET CUTTER Unavailable [phone] FrankieJelenae OD Unavailable Pao Joseph RN Unavailable Unavailable Jesus Grimmyllincoln DOWC Unavailable [phone] Valery VeronicaC Unavailable Rey Tay MD Unavailable Rocky Zepeda DO Unavailable Philip Dumont MD Unavailable [phone] Meredith Carrera PA-C Unavailable Neil Kent MD Unavailable Reason for Visit * Reason Onset Date Comments Call Back 10/24/2023 Encounter Details Date Type Department Care Team (Late st Contact Info) Description 10/24/2023 Telephone [facility] Gastroenterology Clinic [address]th [place] [address] Meredtih Carrera PA-C [address] [place] [address] Call Back Social History Tobacco Use [...] Score 0 10/25/2023 [facility] - Occupational Stress Questionnaire [...] exercise at this level? 30 min 03/10/2023 [place] Depression Scale Answer Date Recorded [place] Depression Score 5 01/14/2021 Last EPDS [...] Luzma Martinez - 10/24/2023 2:17 PM CDT [facility] Call Center Phone Message May [...] Description 02/14/2024 12:50 PM CDT Therapy Visit [address] [address] Rustam Medina, PT [facility] [address] [place] [address] 03/06/2024 3:00 PM CDT Office Visit [facility] Heart [facility] [address] [facility] [address] [place] [phone] Radha Lomeli, BARN BOSS POCKET CUTTER [address] [place], [place] [address] 03/07/2024 9:00 AM CDT Hospital Encounter [facility] [address] [place] [address] 5th [place] [address] Rocky Zepeda DO 500 [place], [place] [address] 03/07/2024 9:00 AM CDT - 03/07/2024 9:30 AM CDT Surgery [facility] [address] [place] [address] 5th [place] [phone] Rocky Zepeda DO 500 [place], [place] [phone] Esophagoscopy, gastroscopy, duodenoscopy (EGD), combined 06/21/2024 2:00 PM REAL ESTATE TRANSACTION COORDINATOR Office Visit [facility] Neurology Clinics [facility] [address] [place] [address], [address] [place] [phone] [place] [address] [place], [place] [address] Johnny Penn MD [address] [place] [address] Scheduled Procedures Name Priority Associated Diagnoses Date/Ti ak ESOPHAGOGASTRODUODENOSCOPY Eosinophilic esophagitis Esophageal dysphagia 03/07/2024 9:00 AM CDT documented as of this encounter Visit Diagnoses Not on filedocumented in this encounter Additional Health Concerns Assessment Noted Time PHQ-9 Depression Total Score: 4 06/20/20 23 8:40 AM REAL ESTATE TRANSACTION COORDINATOR documented as of this encounter Care Teams Advanced Research Programs Director Relationship Specialty Start Date End Date Esha Grimm PA-C [address] [place] [address] PCP - General Family Medicine 05/04/23 Diana Desir, [facility] [address] [place], [place] [address] Pharmacist Pharmacist 04/17/21 Rain Galavzi PA-C [address] [place] [address] [address] [place] [address] Physician Needle Felt Making Machine Operator Dermatology 04/28/21 Tavia Wyatt MD [address] [place] [address] [address] [facility] [place] [address] Dermatology 07/14/21 Erica Farrell APRN POCKET CUTTER [address] [facility] [address] [place], [place] [address] Nurse Practitioner Cardiovascular Disease 09/09/21 Rich Barrett MD 516 [facility] 9[address] [place], [place] [address] Physician Ophthalmology 01/21/22 Neil Kent MD 500 [place], [place] 963415 Dermatology 02/24/22 Diana Desir, [facility] [address] [place] [address] Assigned MTM Pharmacist 04/07/22 Livan Sharif MD [address] [facility] [address] [place] [address] Cardiovascular Disease 05/14/22 Catherine Cm MD 6[address] [facility] [address] [facility] [address] [place] [address] Cardiovascular Disease 07/21/22 Valery Veronica, PAUcheC [address] [place] [address] Physician Needle Felt Making Machine Operator Dermatology 07/21/22 Brea Quinn APRN POCKET CUTTER [address] [place] [address] Nurse Practitioner Dermatology 09/21/22 Brea Quinn APRN POCKET CUTTER [address] [place] [address] Assigned Surgical Provider 10/09/22 [place] [address] [facility] [facility] 300 [place] [address] Assigned Musculoskeletal Provider 10/09/22 Alfonso Renteria MD 5775 [facility] 200 [place] [address] Assigned Neuroscience Provider 04/02/23 Radha Lomeli APRN POCKET CUTTER [address] [place] [address] Assigned Heart and Vascular Provider 05/28/23 Jelena David OD [address] [facility] [place] [address] MD Ophthalmology 06/15/23 Pao Joseph, VJ Personal Advocate & Liaison (PAL) Nurse 08/01/23 11/07/23 Esha Grimm PA-C [address] [place] [phone] Assigned PCP 07/16/23 Valery Veronica PA-C [address] [place] [address] 428065 Physician Needle Felt Making Machine Operator Dermatology 09/19/23 Rey Tay MD [address] [place] [address]255 Gastroenterology 09/20/23 Rocky Zepeda DO [address] [place] [address]1855 Physician Gastroenterology 09/20/23 Philip Dumont MD [address] [place] [address] 037635 Physician Ophthalmology 09/22/23 Meredith Carrera PA-C [address] [place] [address] 124405 Assigned Gastroenterology Provider 11/01/23 Neil Kent MD [address] [place] [address] Dermatology 11/02/23 documented as of this encounter
--- OUTSIDE RECORDS SUMMARY | 2024-02-12 05:46 | XMS_ITS | Encounter Summary ---
Author Organization [place] Address [address] [place] [address] Care Team Providers Care Manager Poker Name Role Phone Thang Diana [place] [facility] Unavailable [phone] Rain Galaviz PA-C Unavailable Tavia Wyatt MD Unavailable Unavailable Erica Farrell FRONT END DRUPAL DEVELOPER COKE CRANE OPERATOR Unavailable Rich Barrett MD Unavailable Neil Kent MD Unavailable Diana Desir Stanislav [facility] Unavailable [phone] Livan Sharif MD Unavailable Catherine Cm MD Unavailable + Valery Veronica PA-C Unavailable [phone] Brea Quinn FRONT END DRUPAL DEVELOPER COKE CRANE OPERATOR Unavailable [phone] Brea Quinn FRONT END DRUPAL DEVELOPER COKE CRANE OPERATOR Unavailable Jose Francisco Johnson MD Unavailable Alfonso Renteria MD Unavailable + [phone] Esha Grimm PA-C Primary Care Provider Radha Lomeli FRONT END DRUPAL DEVELOPER COKE CRANE OPERATOR Unavailable [phone] Jelena David OD Unavailable Pao Joseph RN Unavailable Unavailable Esha Grimm Adam PA-C Unavailable [phone] Valery Veronica PA-C Unavailable [phone] Rey Tay MD Unavailable Rocky Zepeda DO Unavailable Philip Dumont MD Unavailable [phone] Meredith Carrera PA-C Unavailable [phone] Neil Kent MD Unavailable Juan Pablo Emmanuel MD Unavailable [phone] Encounter Details Date Type Department Care Team (Late st Contact Info) Description 08/25/2023 MyC Medical Advice [facility] Gastroenterology Clinic [address]th [place] [address] Marija Polanco, VJ Social History [...] often do you attend chur ch or zoroastrianism services? 1 to 4 times [...] Answer Date Recorded PHQ-2 Score 0 06/20/2023 [facility] - Occupational Stress Questionnaire Answer Date Recorded [...] exercise at this level? 30 min 03/10/2023 [place] Depression Scale Answer Date Recorded [place] Depression Score 5 01/14/2021 Last EPDS Self [...] Description 02/14/2024 12:50 PM CDT Therapy Visit [facility] Rehabilitation Services [address] [address] Rustam Medina, PT [facility] [address] [place] [address] 03/06/2024 3:00 PM CDT Office Visit [facility] Heart Clinic [place] [address] [facility] [address] [place] [address] Radha Lomeli, FRONT END DRUPAL DEVELOPER COKE CRANE OPERATOR [address] [place] [address] 03/07/2024 9:00 AM CDT Hospital Encounter [facility] [address] [place] [address] SE 5th [place] [phone] Rocky Zepeda DO 500 [place] [address] 03/07/2024 9:00 AM CDT - 03/07/2024 9:30 AM CDT Surgery [address] 5th [place] [phone] Rocky Zepeda, DO 500 [place], [place] [address] Esophagoscopy, gastroscopy, duodenoscopy (EGD), combined 06/21/2024 2:00 PM PARTS CATALOGUER Office Visit [facility] Neurology Clinics - [place] [address] [facility], [address] [place] [address] [place] [address] [place] [address] Johnny Penn MD [address] [place] [address] Scheduled Procedures Name Priority Associated Diagnoses Date/Ti ny ESOPHAGOGASTRODUODENOSCOPY Eosinophilic esophagitis Esophageal dysphagia 03/07/2024 9:00 AM CDT documented as of this encounter Visit Diagnoses Not on filedocumented in this encounter Additional Health Concerns Infection Onset Date Last Indicated Resolved Time Rule Out COVID-19 12/26/2023 12/26/2023 12/26/2023 9:50 AM CDT Assessment Noted Time PHQ-9 Depression Total Score: 4 06/20/20 23 8:40 AM PARTS CATALOGUER documented as of this encounter Care Teams Manager Poker Relationship Specialty Start Date End Date Esha Grimm PA-C [address] [place] [address] PCP - General Family Medicine 05/04/23 Diana Desir [facility] [address] [place] [address] Pharmacist Pharmacist 04/17/21 Rain Galaviz PA-C [address] [place] [address] [address] [place] [address] Physician Maintenance Shop Manager Dermatology 04/28/21 Tavia Wyatt MD [address] [place] [address] DR [place], [place] [address] Dermatology 07/14/21 Erica Farrell APRN COKE CRANE OPERATOR [address] [place] [address] Nurse Practitioner Cardiovascular Disease 09/09/21 Rich Barrett MD [address] [place] [address] 241715 Physician Ophthalmology 01/21/22 Neil Kent MD [address] [place] [address] 729735 Dermatology 02/24/22 Diana Desir, [facility] [address] [place] [address] 100856 Assigned [place] Pharmacist 04/07/22 Livan Sharif MD [address], [facility]00 [place] [address] Cardiovascular Disease 05/14/22 Catherine Cm MD [address] [facility] [place] 34[address] Cardiovascular Disease 07/21/22 Valery Veronica, PA-C [address] [place] [address] 223295 Physician Maintenance Shop Manager Dermatology 07/21/22 Brea Quinn APRN COKE CRANE OPERATOR 500 [place], [place] 252735 Nurse Practitioner Dermatology 09/21/22 Brea Quinn APRN COKE CRANE OPERATOR 6401 [place], [place] 157962 Assigned Surgical Provider 10/09/22 [place] [address] 427477 Assigned Musculoskeletal Provider 10/09/22 Alfonso Renteria MD 5775 [facility] 200 [place], [place] 5[address]36 Assigned Neuroscience Provider 04/02/23 Radha Lomeli APRN COKE CRANE OPERATOR [address] 871445 Assigned Heart and Vascular Provider 05/28/23 Jelena David OD 3[address] [facility] [address] [place] [id number] Ophthalmology 06/15/23 Pao Joseph, VJ Personal Advocate & Liaison (PAL) Nurse 08/01/23 11/07/23 Esha Grimm PA-C [address] [place] [address] Assigned PCP 07/16/23 Valery Veronica PA-C [address] [place] [address] Physician Maintenance Shop Manager Dermatology 09/19/23 Rey Tay MD [address] [place] [address] MD Gastroenterology 09/20/23 Rocky Zepeda DO [address] [place] [address] Physician Gastroenterology 09/20/23 Philip Dumont MD [address] [place] [address] Physician Ophthalmology 09/22/23 Meredith Carrera PA-C [address] [place] [address] Assigned Gastroenterology Provider 11/01/23 Neil Kent MD [address] 447[address] Dermatology 11/02/23 [place] [address] [place], [place] 092787 Neurological Surgery 12/26/23 documented as of this encounter
--- OUTSIDE RECORDS SUMMARY | 2024-02-12 05:46 | XMS_ITS | Encounter Summary ---
Author Organization [place] Address [address] [place] [address] Care Team Providers Care Crop Picker Name Role Phone Thang Diana [place] [facility] Unavailable Rain Galaviz PA-C Unavailable Tavia Wyatt MD Unavailable Unavailable Erica Farrell MANAGER COMPENSATION APPLICATIONS PACKAGER Unavailable Rich Barrett MD Unavailable Neil Kent MD Unavailable Diana Desir Stanislav [facility] Unavailable [phone] Livan Sharif MD Unavailable Catherine Cm MD Unavailable + Valery Veronica PA-C Unavailable [phone] Brea Quinn MANAGER COMPENSATION APPLICATIONS PACKAGER Unavailable Brea Quinn MANAGER COMPENSATION APPLICATIONS PACKAGER Unavailable Jose Francisco Johnson MD Unavailable Alfonso Renteria MD Unavailable + [phone] Esha Grimm PA-C Primary Care Provider Radha Lomeli MANAGER COMPENSATION APPLICATIONS PACKAGER Unavailable [phone] Jelena David OD Unavailable Pao Joseph RN Unavailable Unavailable AlfaW[facility]olincoln Medina PA-C Unavailable [phone] Valery Veronica PA-C Unavailable Rey Tay MD Unavailable Rocky Zepeda DO Unavailable Philip Dumont MD Unavailable [phone] Meredith Carrera-C Unavailable [phone] Neil Kent MD Unavailable Juan Pablo Emmanuel MD Unavailable [phone] Encounter Details Date Type Department Care Team (Late st Contact Info) Description 09/01/2023 MyC Medical Advice [address] [address] [facility] 3033 [place] [address] Social History Tobacco Use Types [...] Answer Date Recorded PHQ-2 Score 0 06/20/2023 [facility] - [...] exercise at this level? 30 min 03/10/2023 [place] Depression Scale Answer Date Recorded [place] Depression Score 5 01/14/2021 Last EPDS Self [...] [facility] Rehabilitation Services [address] [phone] Rustam Medina, PT [facility] [address] [place] [address] 03/06/2024 3:00 PM CDT Office Visit [facility] Heart Clinic [place] [address] [place] [address] [address] [place] [phone] Radha Lomeli E, MANAGER COMPENSATION APPLICATIONS PACKAGER [address] [place], [place] [address] 03/07/2024 9:00 AM CDT Hospital Encounter [facility] [address] [facility] SE 5th [place] [address] Rocky Zepeda DO 500 [place], [place] [address] 03/07/2024 9:00 AM CDT - 03/07/2024 9:30 AM CDT Surgery [facility] [address] [facility] [address] 5th [place] [phone] Rocky Zepeda DO 500 [place], [place] 6[address] Esophagoscopy, gastroscopy, duodenoscopy (EGD), combined 06/21/2024 2:00 PM DOMAIN ARCHITECT Office Visit [facility] Neurology Clinics - [place] [address] [facility], [address] [place] [address] [place] [address] [place] [address] Johnny Penn MD [address] [facility] [place] 2[address] Scheduled Procedures Name Priority Associated Diagnoses Date/Ti de ESOPHAGOGASTRODUODENOSCOPY Eosinophilic esophagitis Esophageal dysphagia 03/07/2024 9:00 AM CDT documented as of this encounter Visit Diagnoses Not on filedocumented in this encounter Additional Health Concerns Infection Onset Date Last Indicated Resolved Time Rule Out COVID-19 12/26/2023 12/26/2023 12/26/2023 9:50 AM CDT Assessment Noted Time PHQ-9 Depression Total Score: 4 06/20/20 23 8:40 AM DOMAIN ARCHITECT documented as of this encounter Care Teams Crop Picker Relationship Specialty Start Date End Date Esha Grimm PA-C [address] [place] [phone] PCP - General Family Medicine 05/04/23 Diana Desir, [facility] [address] [place] [address] Pharmacist Pharmacist 04/17/21 Rain Galaviz PA-C [address] [place] [address] [address] [place] [address] Physician Logistician Dermatology 04/28/21 Tavia Wyatt MD [address] [place] [address] [place] [address] Dermatology 07/14/21 Erica Farrell APRN APPLICATIONS PACKAGER [address] [place] [address] Nurse Practitioner Cardiovascular Disease 09/09/21 Rich Barrett MD [address] 003945 Physician Ophthalmology 01/21/22 Neil Kent MD 500 [place], [place] 9[address] Dermatology 02/24/22 Diana Desir, [facility] [address] [place] [address] Assigned MTM Pharmacist 04/07/22 Livan Sharif MD [address], [address] [address] [place] [address] Cardiovascular Disease 05/14/22 Catherine Cm MD [address] [place] [address] [place] [address] Cardiovascular Disease 07/21/22 JeremíasValery damon PA-C 909 [place] [address] Physician Logistician Dermatology 07/21/22 Brea Quinn APRN APPLICATIONS PACKAGER 500 [place] [address] Nurse Practitioner Dermatology 09/21/22 Brea Quinn APRN APPLICATIONS PACKAGER 6401 [place] [address] Assigned Surgical Provider 10/09/22 [place] [address] [place] [address] Assigned Musculoskeletal Provider 10/09/22 Alfonso Renteria MD 5775 [facility] 200 [place], [place] [address]96 Assigned Neuroscience Provider 04/02/23 Radha Lomeli APRN APPLICATIONS PACKAGER 6405 [facility] [address] [place], [place] 4[address] Assigned Heart and Vascular Provider 05/28/23 Jelena David OD [address] [facility] [place] [address] Ophthalmology 06/15/23 Pao Joseph, VJ Personal Advocate & Liaison (PAL) Nurse 08/01/23 11/07/23 Esha Grimm PA-C [address] [place] [phone] Assigned PCP 07/16/23 Valery Veronica PA-C [address] [place] [address] Physician Logistician Dermatology 09/19/23 Rey Tay MD [address] [place] [address] 262045 MD Gastroenterology 09/20/23 Rocky Zepeda DO [address] [place] [address] 598265 Physician Gastroenterology 09/20/23 Philip Dumont MD [address] [place] [address] Physician Ophthalmology 09/22/23 Meredith Carrera PA-C [address] [place] [address] Assigned Gastroenterology Provider 11/01/23 Neil Kent MD [address] [address] Dermatology 11/02/23 [place] [address] [place] [address] Neurological Surgery 12/26/23 documented as of this encounter
--- OUTSIDE RECORDS SUMMARY | 2024-02-12 05:46 | XMS_ITS | Encounter Summary ---
Author Organization [facility] Address [address] [place] [address] Care Team Providers Care Jewelry Facer Name Role Phone Thang Diana [place] [facility] Unavailable Rain Galaviz PA-C Unavailable [phone] Tavia Wyatt MD Unavailable Unavailable Erica Farrell RESEARCH PROJECT COORDINATOR ON SITE MANAGER Unavailable Rich Barrett MD Unavailable Neil Kent MD Unavailable Diana Desir Stanislav [facility] Unavailable [phone] Livan Sharif MD Unavailable Catherine Cm MD Unavailable + Valery Veronica PA-C Unavailable [phone] Brea Quinn RESEARCH PROJECT COORDINATOR ON SITE MANAGER Unavailable Brea Quinn RESEARCH PROJECT COORDINATOR ON SITE MANAGER Unavailable Jose Francisco Johnson MD Unavailable Alfonso Renteria MD Unavailable + [phone] Esha Grimm PA-C Primary Care Provider Radha Lomeli RESEARCH PROJECT COORDINATOR ON SITE MANAGER Unavailable [phone] FrankieJelena OD Unavailable Pao Joseph RN Unavailable Unavailable AlfaWicholincoln Medina PA-C Unavailable [phone] aVlery Veronica PA-C Unavailable Rey Tay MD Unavailable Rocky Zepeda DO Unavailable Philip Dumont MD Unavailable [phone] Meredith Carrera-C Unavailable [phone] Neil Kent MD Unavailable Juan Pablo Emmanuel MD Unavailable [phone] Encounter Details Date Type Department Care Team (Late st Contact Info) Description 10/25/2023 MyC Medical Advice [facility] [address] [place] [address] Nelly Mesa, RD [address] [place] [address] Social History Tobacco Use Types [...] Answer Date Recorded PHQ-2 Score 0 10/25/2023 [facility] - [...] 12:50 PM CDT Therapy Visit [facility] [address] [phone] Rustam Medina, PT [facility] [address] [place] [address] 03/06/2024 3:00 PM CDT Office Visit [facility] [place] [address] [facility] [address] [place] [phone] Radha Lomeli APRN ON SITE MANAGER [address] [place] [address] 03/07/2024 9:00 AM CDT Hospital Encounter [facility] [address] [facility] [address] 5th [place] [phone] Rocky Zepeda DO 500 [place], [place] 4[address]15 03/07/2024 9:00 AM CDT - 03/07/2024 9:30 AM CDT Surgery [facility] [address] [facility] [address] 5th [place] [phone] Rocky Zepeda, 500 [place], [place] 0[address]75 Esophagoscopy, gastroscopy, duodenoscopy (EGD), combined 06/21/2024 2:00 PM DENTIST/OWNER Office Visit [facility] [place] [address] [facility], [address] [place] [address] [place] [address] [place], [place] [phone] Johnny Penn MD [address] [place] [address] Scheduled Procedures Name Priority Associated Diagnoses Date/Ti dc ESOPHAGOGASTRODUODENOSCOPY Eosinophilic esophagitis Esophageal dysphagia 03/07/2024 9:00 AM CDT documented as of this encounter Visit Diagnoses Not on filedocumented in this encounter Additional Health Concerns Infection Onset Date Last Indicated Resolved Time Rule Out COVID-19 12/26/2023 12/26/2023 12/26/2023 9:50 AM CDT Assessment Noted Time PHQ-9 Depression Total Score: 4 06/20/20 23 8:40 AM DENTIST/OWNER documented as of this encounter Care Teams Jewelry Facer Relationship Specialty Start Date End Date Esha Grimm PA-C [address] [place] [phone] PCP - General Family Medicine 05/04/23 Diana Desir, [facility] [address] [facility] [place] [address] Pharmacist Pharmacist 04/17/21 Rain Galaviz PA-C [address] [place] [address] [address] [place] [address] Physician Commercial Finance Analyst Dermatology 04/28/21 Tavia Wyatt MD [address] [place] [address] [place] [address] Dermatology 07/14/21 Erica Farrell APRN ON SITE MANAGER [address] [place] [address]170[address] Nurse Practitioner Cardiovascular Disease 09/09/21 Rich Barertt MD [address] [facility], [address] 980515 Physician Ophthalmology 01/21/22 Neil Kent MD 500 [place], [place] 939215 Dermatology 02/24/22 Diana Desir, [facility] 3033 [place] [address] Assigned MTM Pharmacist 04/07/22 Livan Sharif MD [address], [facility] [address] [place] 694015 Cardiovascular Disease 05/14/22 Catherine Cm MD [address] [place] [address] Cardiovascular Disease 07/21/22 Valery Veronica PA-C [address]09 [place] [address] Physician Commercial Finance Analyst Dermatology 07/21/22 Brea Quinn APRN ON SITE MANAGER 500 [place] [address] Nurse Practitioner Dermatology 09/21/22 Brea Quinn APRN ON SITE MANAGER [address] [place], [place] 802702 Assigned Surgical Provider 10/09/22 [place] [address] [place], [place] 8[address]687 Assigned Musculoskeletal Provider 10/09/22 Alfonso Renteria MD [address] [facility] 200 [place], [place] [phone] Assigned Neuroscience Provider 04/02/23 Radha Lomeli APRN ON SITE MANAGER [address] [facility] [address] [place] [address]95 Assigned Heart and Vascular Provider 05/28/23 Jelena David OD [address] [facility] [place] [address] Ophthalmology 06/15/23 Pao Joseph, VJ Personal Advocate & Liaison (PAL) Nurse 08/01/23 11/07/23 Esha Grimm PA-C [address] [place] [phone] Assigned PCP 07/16/23 Valery Veronica PAUcheC [address] [place] [address] 670945 Physician Commercial Finance Analyst Dermatology 09/19/23 Rey Tay MD [address] [place] [address] MD Gastroenterology 09/20/23 Rocky Zepeda DO [address] [place] [address] 515105 Physician Gastroenterology 09/20/23 Philip Dumont MD [address] [place] [address] 133195 Physician Ophthalmology 09/22/23 Meredith Carrera PA-C [address] [place] [address] Assigned Gastroenterology Provider 11/01/23 Neil Kent MD [address] [address] Dermatology 11/02/23 [place] [address] [facility] [place] [address] Neurological Surgery 12/26/23 documented as of this encounter
--- OUTSIDE RECORDS SUMMARY | 2024-02-12 05:46 | XMS_ITS | Encounter Summary ---
Author Organization [place] Address [address] [place] [address] Care Team Providers Care Dentistry Professor Name Role Phone Thang Diana [place] [facility] Unavailable [phone] Rain Galaviz PA-C Unavailable [phone] Tavia Wyatt MD Unavailable Unavailable Erica Farrell FUR MIXER FISHING MANAGER Unavailable Rich Barrett MD Unavailable Neil Kent MD Unavailable Diana Desir Stanislav [facility] Unavailable [phone] Livan Sharif MD Unavailable Catherine Cm MD Unavailable + Valery Veronica PA-C Unavailable [phone] Brea Quinn FUR MIXER FISHING MANAGER Unavailable Brea Quinn FUR MIXER FISHING MANAGER Unavailable Jose Francisco Johnson MD Unavailable Alfonso Renteria MD Unavailable + [phone] Esha Grimm PA-C Primary Care Provider [phone] Radha Lomeli FUR MIXER FISHING MANAGER Unavailable [phone] Jelena David OD Unavailable Pao Joseph RN Unavailable Unavailable Esha Grimm Adam PA-C Unavailable [phone] Valery Veronica PA-C Unavailable [phone] Rey Tay MD Unavailable Rocky Zepeda DO Unavailable Philip Dumont MD Unavailable [phone] Meredith Carrera PA-C Unavailable [phone] Neil Kent MD Unavailable Juan Pablo Emmanuel MD Unavailable [phone] Encounter Details Date Type Department Care Team (Late st Contact Info) Description 09/08/2023 MyC Medical Advice [facility] [address] [place] [address] Marija Polanco, VJ Social History [...] often do you attend chur ch or restorationism services? 1 to 4 times [...] Answer Date Recorded PHQ-2 Score 0 06/20/2023 [facility] - Occupational Stress Questionnaire Answer Date [...] exercise at this level? 30 min 03/10/2023 [place] Depression Scale Answer Date Recorded [place] Depression Score 5 01/14/2021 Last EPDS Self [...] Description 02/14/2024 12:50 PM CDT Therapy Visit [facility] [address] [address] Rustam Medina, PT [facility] [address] [place] [address] 03/06/2024 3:00 PM CDT Office Visit [facility] [place] [address] [facility] [address] [place] [phone] Radha Lomeli, FUR MIXER FISHING MANAGER [address] [place] [address] 03/07/2024 9:00 AM CDT Hospital Encounter [facility] [address] [place] [address] [address] 5th [place] [phone] Rocky Zepeda DO 500 [place] [address] 03/07/2024 9:00 AM CDT - 03/07/2024 9:30 AM CDT Surgery [address] 5th [place] [phone] Rocky Zepeda, DO 500 [place], [place] [address] Esophagoscopy, gastroscopy, duodenoscopy (EGD), combined 06/21/2024 2:00 PM CUTTER HAND Office Visit [facility] [place] [address] [facility], [address] [place] [address] [place] [address] [place] [address] Johnny Penn MD [address] [place] [address] Scheduled Procedures Name Priority Associated Diagnoses Date/Ti sd ESOPHAGOGASTRODUODENOSCOPY Eosinophilic esophagitis Esophageal dysphagia 03/07/2024 9:00 AM CDT documented as of this encounter Visit Diagnoses Not on filedocumented in this encounter Additional Health Concerns Infection Onset Date Last Indicated Resolved Time Rule Out COVID-19 12/26/2023 12/26/2023 12/26/2023 9:50 AM CDT Assessment Noted Time PHQ-9 Depression Total Score: 4 06/20/20 23 8:40 AM CUTTER HAND documented as of this encounter Care Teams Dentistry Professor Relationship Specialty Start Date End Date Esha Grimm PA-C [address] [place] [address] PCP - General Family Medicine 05/04/23 Diana Desir [facility] [address] [place] [address] Pharmacist Pharmacist 04/17/21 Rain Galaviz PA-C [address] [place] [address] [address] [place] [address] Physician Hot Mix Operator Dermatology 04/28/21 Tavia Wyatt MD [address] [place] [address] [address] [place], [place] [address] Dermatology 07/14/21 Erica Farrell APRN FISHING MANAGER [address] [place] [address] Nurse Practitioner Cardiovascular Disease 09/09/21 Rich Barrett MD [address] [place] [address] 378625 Physician Ophthalmology 01/21/22 Neil Kent MD [address] [place] [address] 151725 Dermatology 02/24/22 Diana Desir, [facility] [address] [place] [address] 459746 Assigned [place] Pharmacist 04/07/22 Livan Sharif MD [address], [facility] [place] [address] Cardiovascular Disease 05/14/22 Catherine Cm MD [address] [facility] [place] [address] Cardiovascular Disease 07/21/22 Valery Veronica, PA-C [address] [place] [address] 526315 Physician Hot Mix Operator Dermatology 07/21/22 Brea Quinn APRN FISHING MANAGER 500 [place], [place] 787775 Nurse Practitioner Dermatology 09/21/22 Brea Quinn APRN FISHING MANAGER 6401 [place], [place] 339602 Assigned Surgical Provider 10/09/22 [place] [address] 643627 Assigned Musculoskeletal Provider 10/09/22 Alfonso Renteria MD 5775 [facility] 200 [place], [place] 09[address]26 Assigned Neuroscience Provider 04/02/23 Radha Lomeli APRN FISHING MANAGER [address] 209815 Assigned Heart and Vascular Provider 05/28/23 Jelena David OD [address] [facility] [address] [place] [id number] Ophthalmology 06/15/23 Pao Joseph, VJ Personal Advocate & Liaison (PAL) Nurse 08/01/23 11/07/23 Esha Grimm PA-C [address] [place] [phone] Assigned PCP 07/16/23 Valery Veronica PA-C [address] [place] [address] Physician Hot Mix Operator Dermatology 09/19/23 Rey Tay MD [address] [place] [address] MD Gastroenterology 09/20/23 Rocky Zepeda DO [address] [place] [address] Physician Gastroenterology 09/20/23 Philip Dumont MD [address] [place] [address] Physician Ophthalmology 09/22/23 Meredith Carrera PA-C [address] [place] [address] Assigned Gastroenterology Provider 11/01/23 Neil Kent MD [address] 967880 Dermatology 11/02/23 [place] [address] [place], [place] 621167 Neurological Surgery 12/26/23 documented as of this encounter
--- OUTSIDE RECORDS SUMMARY | 2024-02-12 05:46 | XMS_ITS | Encounter Summary ---
Author Organization [facility] Address [address] [place] [address] Care Team Providers Care Grain Elevator Operator Name Role Phone Thang Diana [place] [facility] Unavailable Rain Galaviz PA-C Unavailable Tavia Wyatt MD Unavailable Unavailable Erica Farrell CINDER DUMP CRANE OPERATOR TITLE I COORDINATOR Unavailable Rich Barrett MD Unavailable Neil Kent MD Unavailable Diana Desir Stanislav [facility] Unavailable [phone] Livan Sharif MD Unavailable Catherine Cm MD Unavailable + Valery Veronica PA-C Unavailable [phone] Brea Quinn CINDER DUMP CRANE OPERATOR TITLE I COORDINATOR Unavailable Brea Quinn CINDER DUMP CRANE OPERATOR TITLE I COORDINATOR Unavailable [phone] Jose Francisco Johnson MD Unavailable Alfonso Renteria MD Unavailable + [phone] Esha Grimm PA-C Primary Care Provider Radha Lomeli CINDER DUMP CRANE OPERATOR TITLE I COORDINATOR Unavailable [phone] Jelena David OD Unavailable Pao Joseph RN Unavailable Unavailable AlfaEsha Adam PA-C Unavailable [phone] Valery Veronica PA-C Unavailable [phone] Rey Tay MD Unavailable Rocky Zepeda DO Unavailable Philip Dumont MD Unavailable [phone] Meredith Carrera PA-C Unavailable [phone] Neil Kent MD Unavailable Juan Pablo Emmanuel MD Unavailable [phone] Encounter Details Date Type Department Care Team (Late st Contact Info) Description 09/20/2023 MyC Medical Advice [facility] [address]th [place] [address] Jeffery Vieira, RN Social History [...] Answer Date Recorded PHQ-2 Score 0 06/20/2023 [facility] - Occupational Stress Questionnaire Answer Date Recorded [...] exercise at this level? 30 min 03/10/2023 [place] Depression Scale Answer Date Recorded [place] Depression Score 5 01/14/2021 Last EPDS Self [...] Description 02/14/2024 12:50 PM CDT Therapy Visit [facility] Rehabilitation [facility] [place] [address] [place] [address] Rustam Medina, PT [facility] [address] [place] [address] 03/06/2024 3:00 PM CDT Office Visit [facility] [place] [address] [facility] [address] [place] [phone] Radha Lomeli, CINDER DUMP CRANE OPERATOR TITLE I COORDINATOR [address] [place] [address] 03/07/2024 9:00 AM CDT Hospital Encounter [facility] [address] [facility] [address] 5th [place] [phone] Rocky Zepeda DO 500 [place] [address] 03/07/2024 9:00 AM CDT - 03/07/2024 9:30 AM CDT Surgery [facility] [address] [facility] [address] 5th [place] [phone] Rocky Zepeda, DO 500 [place] [address] Esophagoscopy, gastroscopy, duodenoscopy (EGD), combined 06/21/2024 2:00 PM REGISTERED NURSE OBSTETRICS Office Visit [facility] [place] [address] [facility], [address] [place] [address] [place] [address] [place] [address] Johnny Penn MD [address] [place] [address] Scheduled Procedures Name Priority Associated Diagnoses Date/Ti oh ESOPHAGOGASTRODUODENOSCOPY Eosinophilic esophagitis Esophageal dysphagia 03/07/2024 9:00 AM CDT documented as of this encounter Visit Diagnoses Not on filedocumented in this encounter Additional Health Concerns Infection Onset Date Last Indicated Resolved Time Rule Out COVID-19 12/26/2023 12/26/2023 12/26/2023 9:50 AM CDT Assessment Noted Time PHQ-9 Depression Total Score: 4 06/20/20 23 8:40 AM REGISTERED NURSE OBSTETRICS documented as of this encounter Care Teams Grain Elevator Operator Relationship Specialty Start Date End Date Esha Grimm PA-C [address] [place] [address] PCP - General Family Medicine 05/04/23 Diana Desir [facility] [address] [place] [address] Pharmacist Pharmacist 04/17/21 Rain Galaviz PA-C [address] [place] [address] [address] [place] [address] Physician Impregnator And Drier Helper Dermatology 04/28/21 Tavia Wyatt MD [address] [place] [address] [address] [place] [address] Dermatology 07/14/21 Erica Farrell APRN TITLE I COORDINATOR [address] [place] [address] Nurse Practitioner Cardiovascular Disease 09/09/21 Rich Barrett MD [address] [place] [address] 110225 Physician Ophthalmology 01/21/22 Neil Kent MD [address] [place] [address] 493765 MD Dermatology 02/24/22 [facility] [address] [place] [address] 322976 Assigned [facility] Pharmacist 04/07/22 Livan Sharif MD [address], [facility]00 [place] 997775 Cardiovascular Disease 05/14/22 Catherine Cm MD [address] [facility] [place] [address] Cardiovascular Disease 07/21/22 Valery Veronica PA-C [address] [place] [address] 677585 Physician Impregnator And Drier Helper Dermatology 07/21/22 Brea Quinn APRN TITLE I COORDINATOR 500 [place], [place] 0[address]475 Nurse Practitioner Dermatology 09/21/22 Brea Quinn APRN TITLE I COORDINATOR 6401 [place] [address] Assigned Surgical Provider 10/09/22 [place] [address] [address] Assigned Musculoskeletal Provider 10/09/22 Alfonso Renteria MD [address] 782626 Assigned Neuroscience Provider 04/02/23 Radha Lomeli APRN TITLE I COORDINATOR [address] [address] Assigned Heart and Vascular Provider 05/28/23 Jelena David OD [address] [facility] [place] [address] Ophthalmology 06/15/23 Pao Joseph, VJ Personal Advocate & Liaison (PAL) Nurse 08/01/23 11/07/23 Esha Grimm PA-C [address] [place] [phone] Assigned PCP 07/16/23 Valery Veronica PA-C [address] [place] [address] Physician Impregnator And Drier Helper Dermatology 09/19/23 Rey Tay MD [address] [place] [address] MD Gastroenterology 09/20/23 Rocky Zepeda DO [address] [place] [address] Physician Gastroenterology 09/20/23 Philip Dumont MD [address] [place] [address] Physician Ophthalmology 09/22/23 Meredith Carrera, [place] [address] [place] [address] Assigned Gastroenterology Provider 11/01/23 Neil Kent MD [address] [place] [address] 043420 Dermatology 11/02/23 [place] [address] [place] [place], [place] 96[address]37 Neurological Surgery 12/26/23 documented as of this encounter
--- OUTSIDE RECORDS SUMMARY | 2024-02-12 05:46 | XMS_ITS | Encounter Summary ---
Author Organization [place] Address [address] [place] [address] Care Team Providers Care Band Lining Bander Name Role Phone Thang Diana [place] [facility] Unavailable Rain Galaviz PA-C Unavailable [phone] Tavia Wyatt MD Unavailable Unavailable Erica Farrell DRUG INSPECTOR CONCESSION MANAGER Unavailable Rich Barrett MD Unavailable Neil Kent MD Unavailable Diana Desir Stanislav [facility] Unavailable [phone] Livan Sharif MD Unavailable Catherine Cm MD Unavailable + Valery Veronica PA-C Unavailable [phone] Brea Quinn DRUG INSPECTOR CONCESSION MANAGER Unavailable [phone] Brea Quinn DRUG INSPECTOR CONCESSION MANAGER Unavailable Jose Francisco Johnson MD Unavailable Alfonso Renteria MD Unavailable + [phone] Esha Grimm PA-C Primary Care Provider Radha Lomeli DRUG INSPECTOR CONCESSION MANAGER Unavailable [phone] FrankieJelenae OD Unavailable [phone] Pao oJseph RN Unavailable Unavailable Jesus Grimmyllincoln Medina PA-C Unavailable [phone] Valery Veronica PA-C Unavailable [phone] Rey Tay MD Unavailable Rocky Zepdea DO Unavailable Philip Dumont MD Unavailable [phone] Meredith Carrera PA-C Unavailable [phone] Neil Kent MD Unavailable Juan Pablo Emmanuel MD Unavailable [phone] Encounter Details Date Type Department Care Team (Late st Contact Info) Description 09/08/2023 MyC Medical Advice [facility] Gastroenterology Clinic [address] [place] [address] Mary Kelsey Social History Tobacco [...] Recorded PHQ-2 Score 0 06/20/2023 [facility] - Occupational Stress Questionnaire Answer Date [...] exercise at this level? 30 min 03/10/2023 [place] Depression Scale Answer Date Recorded [place] Depression Score 5 01/14/2021 Last EPDS Self [...] Visit [facility] Rehabilitation Services [address] [address] Rustam Medina, PT [facility] [address] [place] [address] 03/06/2024 3:00 PM CDT Office Visit [facility] Heart [facility] [place] [id number] [place] [address] [address] [place] [phone] Radha Lomeli, DRUG INSPECTOR CONCESSION MANAGER [address] [place] [address] 03/07/2024 9:00 AM CDT Hospital Encounter [address] 5th [place] [phone] Rocky Zepeda DO 500 [place] [address] 03/07/2024 9:00 AM CDT - 03/07/2024 9:30 AM CDT Surgery [address] 5th [place] [address] Rocky Zepeda, DO 500 [place], [place] 056695 Esophagoscopy, gastroscopy, duodenoscopy (EGD), combined 06/21/2024 2:00 PM PARAPROFESSIONAL AIDE Office Visit [facility] Neurology Clinics - [place] [address] [facility], [address] [place] [address] [place] [address] [place] [address] Johnny Penn MD [address] [place] [address] Scheduled Procedures Name Priority Associated Diagnoses Date/Ti mt ESOPHAGOGASTRODUODENOSCOPY Eosinophilic esophagitis Esophageal dysphagia 03/07/2024 9:00 AM CDT documented as of this encounter Visit Diagnoses Not on filedocumented in this encounter Additional Health Concerns Infection Onset Date Last Indicated Resolved Time Rule Out COVID-19 12/26/2023 12/26/2023 12/26/2023 9:50 AM CDT Assessment Noted Time PHQ-9 Depression Total Score: 4 06/20/20 23 8:40 AM PARAPROFESSIONAL AIDE documented as of this encounter Care Teams Band Lining Bander Relationship Specialty Start Date End Date Esha Grimm PA-C [address] [place] [address] PCP - General Family Medicine 05/04/23 Diana Desir [facility] [address] [place] [address] Pharmacist Pharmacist 04/17/21 Rain Galaviz PA-C [address] [place] [address] [address] [place] [address] Physician Vice President Compliance Dermatology 04/28/21 Tavia Wyatt MD [address] [place] [address] [place] [address] Dermatology 07/14/21 Erica Farrell APRN CONCESSION MANAGER [address] [place] [address] Nurse Practitioner Cardiovascular Disease 09/09/21 Rich Barrett MD [address] [place] [address] 146965 Physician Ophthalmology 01/21/22 Neil Kent MD [address] [place] [address] 973735 Dermatology 02/24/22 Diana Desir, [facility] [address] [place] [address] 299076 Assigned [place] Pharmacist 04/07/22 Livan Sharif MD [address], [facility]00 [place] [address] Cardiovascular Disease 05/14/22 Catherine Cm MD [address] [facility]00 [place] 672275 Cardiovascular Disease 07/21/22 Valery Veronica, PA-C [address] [place] [address] 529995 Physician Vice President Compliance Dermatology 07/21/22 Brea Quinn APRN CONCESSION MANAGER 500 [place], [place] 281405 Nurse Practitioner Dermatology 09/21/22 Brea Quinn APRN CONCESSION MANAGER 6401 [place], [place] 346302 Assigned Surgical Provider 10/09/22 [place] [address] 577527 Assigned Musculoskeletal Provider 10/09/22 Alfonso Renteria MD [address] [facility] 200 [place], [place] 630836 Assigned Neuroscience Provider 04/02/23 Radha Lomeli APRN CONCESSION MANAGER [address] 876455 Assigned Heart and Vascular Provider 05/28/23 Jelena David OD [address] [facility] [address] [place] [id number] Ophthalmology 06/15/23 Pao Joseph, VJ Personal Advocate & Liaison (PAL) Nurse 08/01/23 11/07/23 Esha Grimm PA-C [address] [place] [address] Assigned PCP 07/16/23 Valery Veronica PA-C [address] [place] [address] Physician Vice President Compliance Dermatology 09/19/23 Rey Tay MD [address] [place] [address] MD Gastroenterology 09/20/23 Rocky Zepeda DO [address] [place] [address] Physician Gastroenterology 09/20/23 Philip Dumont MD [address] [place] [address] Physician Ophthalmology 09/22/23 Meredith Carrera PA-C [address] [place] [address] Assigned Gastroenterology Provider 11/01/23 Neil Kent MD [address] 560[address] Dermatology 11/02/23 [place] [address] [place] [address] Neurological Surgery 12/26/23 documented as of this encounter
--- OUTSIDE RECORDS SUMMARY | 2024-02-12 05:46 | XMS_ITS | Encounter Summary ---
Author Organization [place] Address [address] [place] [address] Care Team Providers Care Peer Educator Name Role Phone Thang Diana [place] [facility] Unavailable Rain Galaviz PA-C Unavailable Tavia Wyatt MD Unavailable Unavailable Erica Farrell LACE AND TEXTILES RESTORER DIRECTOR MUSIC Unavailable Rich Barrett MD Unavailable Neil Kent MD Unavailable Diana Desir Stanislav [facility] Unavailable [phone] Livan Sharif MD Unavailable Catherine Cm MD Unavailable + Valery Veronica PA-C Unavailable [phone] Brea Quinn LACE AND TEXTILES RESTORER DIRECTOR MUSIC Unavailable Brea Quinn LACE AND TEXTILES RESTORER DIRECTOR MUSIC Unavailable Jose Francisco Johnson MD Unavailable Alfonso Renteria MD Unavailable + [phone] Esha Grimm PA-C Primary Care Provider Radha Lomeli LACE AND TEXTILES RESTORER DIRECTOR MUSIC Unavailable [phone] FrankieJelenae OD Unavailable Pao Joseph RN Unavailable Unavailable Jesus Grimmyllincoln Medina PA-C Unavailable [phone] Valery Veronica PA-C Unavailable [phone] Rey Tay MD Unavailable Rocky Zepeda DO Unavailable Philip Dumont MD Unavailable [phone] Meredith Carrera PA-C Unavailable [phone] Neil Kent MD Unavailable Juan Pablo Emmanuel MD Unavailable [phone] Encounter Details Date Type Department Care Team (Late st Contact Info) Description 10/25/2023 MyC Medical Advice [facility] Gastroenterology Clinic [address] [place] [address] Wesley Powell Social History Tobacco [...] you attend chur ch or rastafari services? 1 to 4 times [...] Date Recorded PHQ-2 Score 0 10/25/2023 [facility] - Occupational Stress Questionnaire Answer [...] exercise at this level? 30 min 03/10/2023 [place] Depression Scale Answer Date Recorded [place] Depression Score 5 01/14/2021 Last EPDS Self [...] Description 02/14/2024 12:50 PM CDT Therapy Visit [facility] Rehabilitation Services [address] [address] Rustam Medina, PT [facility] [address] [place] [address] 03/06/2024 3:00 PM CDT Office Visit [facility] Heart Clinic [place] [address] [facility] [address] [place] [address] Radha Lomeli, LACE AND TEXTILES RESTORER DIRECTOR MUSIC [address] [place] [address] 03/07/2024 9:00 AM CDT Hospital Encounter [facility] [address] [place] [address] SE 5th [place] [phone] Rocky Zepeda DO 500 [place] [address] 03/07/2024 9:00 AM CDT - 03/07/2024 9:30 AM CDT Surgery [address] 5th [place] [address] Rocky Zepeda, DO 500 [place], [place] 129845 Esophagoscopy, gastroscopy, duodenoscopy (EGD), combined 06/21/2024 2:00 PM MECHANICAL ASSEMBLY TECHNICIAN Office Visit [facility] Neurology Clinics - [place] [address] [facility], [address] [place] [address] [place] [address] [place] [address] Johnny Penn MD [address] [place] [address] Scheduled Procedures Name Priority Associated Diagnoses Date/Ti pr ESOPHAGOGASTRODUODENOSCOPY Eosinophilic esophagitis Esophageal dysphagia 03/07/2024 9:00 AM CDT documented as of this encounter Visit Diagnoses Not on filedocumented in this encounter Additional Health Concerns Infection Onset Date Last Indicated Resolved Time Rule Out COVID-19 12/26/2023 12/26/2023 12/26/2023 9:50 AM CDT Assessment Noted Time PHQ-9 Depression Total Score: 4 06/20/20 23 8:40 AM MECHANICAL ASSEMBLY TECHNICIAN documented as of this encounter Care Teams Peer Educator Relationship Specialty Start Date End Date Esha Grimm PA-C [address] [place] [address] PCP - General Family Medicine 05/04/23 Diana Desir [facility] [address] [place] [address] Pharmacist Pharmacist 04/17/21 Rain Galaviz PA-C [address] [place] [address] [address] [place] [address] Physician Woods Laborer Dermatology 04/28/21 Tavia Wyatt MD [address] [place] [address] DR [place], [place] [address] Dermatology 07/14/21 Erica Farrell APRN DIRECTOR MUSIC [address] [place] [address] Nurse Practitioner Cardiovascular Disease 09/09/21 Rich Barrett MD [address] [place] [address] 824585 Physician Ophthalmology 01/21/22 Neil Kent MD [address] [place] [address] 432325 Dermatology 02/24/22 Diana Desir, [facility] [address] [place] [address] 292426 Assigned [place] Pharmacist 04/07/22 Livan Sharif MD [address], [facility]00 [place] 298875 Cardiovascular Disease 05/14/22 Catherine Cm MD [address] [facility]00 [place] 211[address] Cardiovascular Disease 07/21/22 Valery Veronica, PA-C [address] [place] [address] 525185 Physician Woods Laborer Dermatology 07/21/22 Brea Quinn APRN DIRECTOR MUSIC 500 [place], [place] 439605 Nurse Practitioner Dermatology 09/21/22 Brea Quinn APRN DIRECTOR MUSIC 6401 [place], [place] 834322 Assigned Surgical Provider 10/09/22 [place] [address] [phone] Assigned Musculoskeletal Provider 10/09/22 Alfonso Renteria MD 5775 [facility] 200 [place], [place] 622686 Assigned Neuroscience Provider 04/02/23 Radha Lomeli APRN DIRECTOR MUSIC [address] [address]35 Assigned Heart and Vascular Provider 05/28/23 Jelena David OD [address] [facility] [address] [place] [id number] Ophthalmology 06/15/23 Pao Joseph, VJ Personal Advocate & Liaison (PAL) Nurse 08/01/23 11/07/23 Esha Grimm PA-C [address] [place] [address] Assigned PCP 07/16/23 Valery Veronica PA-C [address] [place] [address] Physician Woods Laborer Dermatology 09/19/23 Rey Tay MD [address] [place] [address] MD Gastroenterology 09/20/23 Rocky Zepeda DO [address] [place] [address] Physician Gastroenterology 09/20/23 Philip Dumont MD [address] [place] [address] Physician Ophthalmology 09/22/23 Meredith Carrera PA-C [address] [place] [address] Assigned Gastroenterology Provider 11/01/23 Neil Kent MD [address] [address] Dermatology 11/02/23 [place] [address] [place], [place] 401[address] Neurological Surgery 12/26/23 documented as of this encounter
--- OUTSIDE RECORDS SUMMARY | 2024-02-12 05:46 | XMS_ITS | Encounter Summary ---
Author Organization [place] Address [address] [place] [address] Care Team Providers Care Supervisor Car And Yard Name Role Phone Thang Diana [place] [facility] Unavailable Rain Galaviz PA-C Unavailable Tavia Wyatt MD Unavailable Unavailable Erica Farrell LCPC PROCESS VALIDATION ENGINEER Unavailable Rich Barrett MD Unavailable Neil Kent MD Unavailable Diana Desir Stanislav [facility] Unavailable [phone] Livan Sharif MD Unavailable Catherine Cm MD Unavailable + Valery Veronica PA-C Unavailable [phone] Brea Quinn LCPC PROCESS VALIDATION ENGINEER Unavailable Brea Quinn LCPC PROCESS VALIDATION ENGINEER Unavailable Jose Francisco Johnson MD Unavailable Alfonso Renteria MD Unavailable + [phone] Esha Grimm PA-C Primary Care Provider [phone] Radha Lomeli LCPC PROCESS VALIDATION ENGINEER Unavailable [phone] FrankieJelenae OD Unavailable Pao Joseph RN Unavailable Unavailable Jesus Grimmyllincoln Medina PA-C Unavailable [phone] Valery Veronica PA-C Unavailable [phone] Rey Tay MD Unavailable Rocky Zepeda DO Unavailable Philip Dumont MD Unavailable [phone] Meredith Carrera PA-C Unavailable [phone] Neil Kent MD Unavailable Juan Pablo Emmanuel MD Unavailable [phone] Encounter Details Date Type Department Care Team (Late st Contact Info) Description 10/26/2023 MyC Medical Advice [facility] Gastroenterology Clinic [address] [place] [address] Wesley Powell Social History Tobacco [...] Answer Date Recorded PHQ-2 Score 0 10/25/2023 [facility] - Occupational Stress Questionnaire Answer Date Recorded [...] exercise at this level? 30 min 03/10/2023 [place] Depression Scale Answer Date Recorded [place] Depression Score 5 01/14/2021 Last EPDS [...] Description 02/14/2024 12:50 PM CDT Therapy Visit [facility] Rehabilitation Services [address] [address] Rustam Medina, PT [facility] [address] [place] [address] 03/06/2024 3:00 PM CDT Office Visit [facility] Heart Clinic [place] [address] [facility] [address] [place] [address] Radha Lomeli, LCPC PROCESS VALIDATION ENGINEER [address] [place] [address] 03/07/2024 9:00 AM CDT Hospital Encounter [facility] [address] [place] [address] [address] 5th [place] [phone] Rocky Zepeda DO 500 [place] [address] 03/07/2024 9:00 AM CDT - 03/07/2024 9:30 AM CDT Surgery [address] 5th [place] [address] Rocky Zepeda, DO 500 [place], [place] 056[address] Esophagoscopy, gastroscopy, duodenoscopy (EGD), combined 06/21/2024 2:00 PM SUBSTATION MANAGER Office Visit [facility] Neurology Clinics - [place] [address] [facility], [address] [place] [address] [place] [address] [place] [address] Johnny Penn MD [address] [place] [address] Scheduled Procedures Name Priority Associated Diagnoses Date/Ti ms ESOPHAGOGASTRODUODENOSCOPY Eosinophilic esophagitis Esophageal dysphagia 03/07/2024 9:00 AM CDT documented as of this encounter Visit Diagnoses Not on filedocumented in this encounter Additional Health Concerns Infection Onset Date Last Indicated Resolved Time Rule Out COVID-19 12/26/2023 12/26/2023 12/26/2023 9:50 AM CDT Assessment Noted Time PHQ-9 Depression Total Score: 4 06/20/20 23 8:40 AM SUBSTATION MANAGER documented as of this encounter Care Teams Supervisor Car And Yard Relationship Specialty Start Date End Date Esha Grimm PA-C [address] [place] [address] PCP - General Family Medicine 05/04/23 Diana Desir [facility] [address] [place] [address] Pharmacist Pharmacist 04/17/21 Rain Galaviz PA-C [address] [place] [address] [address] [place] [address] Physician Drafter Heating And Ventilating Dermatology 04/28/21 Tavia Wyatt MD [address] [place] [address] [address], [place] [address] Dermatology 07/14/21 Erica Farrell APRN PROCESS VALIDATION ENGINEER [address] [place] [address] Nurse Practitioner Cardiovascular Disease 09/09/21 Rich Barrett MD [address] [place] [address] 386045 Physician Ophthalmology 01/21/22 Neil Kent MD [address] [place] [address] 858065 Dermatology 02/24/22 Diana Desir, [facility] [address] [place] [address] 881186 Assigned [place] Pharmacist 04/07/22 Livan Sharif MD [address], [facility]00 [place] 736575 Cardiovascular Disease 05/14/22 Catherine Cm MD [address] [facility] [place] 943835 Cardiovascular Disease 07/21/22 Valery Veronica, PA-C [address] [place] [address] 899715 Physician Drafter Heating And Ventilating Dermatology 07/21/22 Brea Quinn APRN PROCESS VALIDATION ENGINEER 500 [place], [place] 685025 Nurse Practitioner Dermatology 09/21/22 Brea Quinn APRN PROCESS VALIDATION ENGINEER 6401 [place], [place] 443762 Assigned Surgical Provider 10/09/22 [place] [address] [place] 311237 Assigned Musculoskeletal Provider 10/09/22 Alfonso Renteria MD [address] [facility] 200 [place], [place] 801366 Assigned Neuroscience Provider 04/02/23 Radha Lomeli APRN PROCESS VALIDATION ENGINEER [address] 049395 Assigned Heart and Vascular Provider 05/28/23 Jelena David OD [address] [facility] [address] [place] [id number] Ophthalmology 06/15/23 Pao Joseph, VJ Personal Advocate & Liaison (PAL) Nurse 08/01/23 11/07/23 Esha Grimm PA-C [address] [place] [phone] Assigned PCP 07/16/23 Valery Veronica PA-C [address] [place] [address] Physician Drafter Heating And Ventilating Dermatology 09/19/23 Rey Tay MD [address] [place] [address] MD Gastroenterology 09/20/23 Rocky Zepeda DO [address] [place] [address] Physician Gastroenterology 09/20/23 Philip Dumont MD [address] [place] [address] Physician Ophthalmology 09/22/23 Meredith Carrera PA-C [address] [place] [address] Assigned Gastroenterology Provider 11/01/23 Neil Kent MD [address] 909240 Dermatology 11/02/23 [place] [address] [place], [place] 215137 Neurological Surgery 12/26/23 documented as of this encounter
--- OUTSIDE RECORDS SUMMARY | 2024-02-12 05:47 | XMS_ITS | Encounter Summary ---
Author Organization [place] Address [address] [place] [address] Care Team Providers Care Energy Projects Lead Name Role Phone ThangKendrickDiana T [facility] Unavailable Rain Galaviz-C Unavailable [phone] Tavia Wyatt MD Unavailable Unavailable Erica Farrell APRN AUTOCAD DESIGNER Unavailable Rich Barrett MD Unavailable Neil Kent MD Unavailable Diana Desir [facility] Unavailable Livan Sharif MD Unavailable Catherine Cm MD Unavailable + Valery Veronica-C Unavailable [phone] Brea Quinn POWDERED SUGAR SUPERVISOR AUTOCAD DESIGNER Unavailable Brea Quinn POWDERED SUGAR SUPERVISOR AUTOCAD DESIGNER Unavailable [phone] Jose Francisco Johnson MD Unavailable Sydnie Martinez RN Unavailable Unavailable Alfonso Renteria MD Unavailable + [phone] Esha Grimm PA-C Primary Care Provider Cheng ToddC Unavailable Radha Lomeli APRN AUTOCAD DESIGNER Unavailable [phone] Jelena David OD Unavailable Pao Joseph RN Unavailable Unavailable Esha Grimm PA-C Unavailable [phone] Valery Veronica PAUcheC Unavailable [phone] Rey Tay MD Unavailable Rocky Zepeda DO Unavailable Philip Dumont MD Unavailable [phone] Meredith CarreraC Unavailable [phone] Neil Kent MD Unavailable Juan Pablo Emmanuel MD Unavailable [phone] Encounter Details Date Type Department Care Team (Late st Contact Info) Description 07/06/2023 MyC Medical Advice [facility] [address] [place] [address] Esha Grimm PA-C [id number] [place] [address] Social History Tobacco Use Types Packs/Day [...] Answer Date Recorded PHQ-2 Score 0 06/20/2023 [facility] - Occupational Stress Questionnaire Answer [...] exercise at this level? 30 min 03/10/2023 [place] Depression Scale Answer Date Recorded [place] Depression Score 5 01/14/2021 Last EPDS Self [...] in an overnight detention, or couch-surfing.) Yes 06/20/2023 Are you worried [...] Visit [facility] [place] [address] [place] [phone] Rustam Medina, PT [facility] [id number] [place] [address] 03/06/2024 3:00 PM CDT Office Visit [facility] [place] [address] [facility] [address] [place] [phone] Radha Lomeli, POWDERED SUGAR SUPERVISOR AUTOCAD DESIGNER [address] [place], [place] [address] 03/07/2024 9:00 AM CDT Hospital Encounter [facility] 9[address] [facility] SE 5th [place] [address] Rocky Zepeda DO 500 [place] [address] 03/07/2024 9:00 AM CDT - 03/07/2024 9:30 AM CDT Surgery [facility] 909 [facility] SE 5th [place] [phone] Rocky Zepeda DO 500 [place] [address] Esophagoscopy, gastroscopy, duodenoscopy (EGD), combined 06/21/2024 2:00 PM STUDIO ASSOCIATE Office Visit [facility]rology [facility] - [place] [address] [place] [address], [address] [place] [phone] [place] [address] [place], [place] [phone] Johnny Penn MD 6792 [place], [place] 546845 Scheduled Procedures Name Priority Associated Diagnoses Date/Ti ct ESOPHAGOGASTRODUODENOSCOPY Eosinophilic esophagitis Esophageal dysphagia 03/07/2024 9:00 AM CDT documented as of this encounter Visit Diagnoses Not on filedocumented in this encounter Additional Health Concerns Infection Onset Date Last Indicated Resolved Time Rule Out COVID-19 12/26/2023 12/26/2023 12/26/2023 9:50 AM CDT Assessment Noted Time PHQ-9 Depression Total Score: 4 06/20/20 23 8:40 AM STUDIO ASSOCIATE documented as of this encounter Care Teams Energy Projects Lead Relationship Specialty Start Date End Date Esha Grimm PA-C [address] [place] [address] PCP - General Family Medicine 05/04/23 Diana Desir, [facility] 3033 [place] [address] Pharmacist Pharmacist 04/17/21 Rain Galaviz PA-C [address] [place] [address] [address] [place] [address] Physician Contract Administrative Assistant Dermatology 04/28/21 Tavia Wyatt MD [address] [place] [address] [address] [facility] [address] Dermatology 07/14/21 Erica Farrell APRN AUTOCAD DESIGNER [address] [place] 755975 Nurse Practitioner Cardiovascular Disease 09/09/21 Rich Barrett MD [address] [place] [address] 9[address] [place], [place] 266355 Physician Ophthalmology 01/21/22 Neil Kent MD [address] [place] [address] Dermatology 02/24/22 Diana Desir, [facility]3 [place] [address] Assigned MTM Pharmacist 04/07/22 Livan Sharif MD [address] [place] 899055 Cardiovascular Disease 05/14/22 Catherine Cm MD [address] [place] 763205 Cardiovascular Disease 07/21/22 Valery Veronica PA-C 909 [place], [place] 208065 Physician Contract Administrative Assistant Dermatology 07/21/22 Brea Quinn APRN AUTOCAD DESIGNER [address] [place] [address] 654985 Nurse Practitioner Dermatology 09/21/22 Brea Quinn APRN AUTOCAD DESIGNER 6401 [facility] [place] [place] [address] Assigned Surgical Provider 10/09/22 [place] [address] [facility] 300 [place] [address] Assigned Musculoskeletal Provider 10/09/22 Sydnie [place] RN Personal Advocate & Liaison (PAL) Family Medicine 03/28/23 07/31/23 Alfonso Renteria MD 5775 [facility] 200 [place] [address] Assigned Neuroscience Provider 04/02/23 Cheng Todd PA-C [address] [place] [address] Assigned PCP 04/30/23 07/15/23 Radha Lomeli APRN AUTOCAD DESIGNER 6405 [facility] [address] [place] [address] Assigned Heart and Vascular Provider 05/28/23 Jelena David OD [address] [place] [address] Ophthalmology 06/15/23 Pao Joseph, RN Personal Advocate & Liaison (PAL) Nurse 08/01/23 11/07/23 Esha Grimm PA-C [address] [place] [phone] Assigned PCP 07/16/23 Valery Veronica PA-C [address] [place] [address] 726775 Physician Contract Administrative Assistant Dermatology 09/19/23 Rey Tay MD [address] [place] [address] [id number] MD Gastroenterology 09/20/23 Rocky Zepeda DO [address] [place] [address] 017785 Physician Gastroenterology 09/20/23 Philip Dumont MD [address] [place] [address] 734985 Physician Ophthalmology 09/22/23 Meredith Carrera PA-C [address] [place] [address] Assigned Gastroenterology Provider 11/01/23 Neil Kent MD [address] [address] Dermatology 11/02/23 [place] [address] [place] [address] [place] [address] Neurological Surgery 12/26/23 documented as of this encounter
--- OUTSIDE RECORDS SUMMARY | 2024-02-12 05:47 | XMS_ITS | Encounter Summary ---
Author Organization [place] Address [address] [place] [address] Care Team Providers Care Transcript Evaluator Name Role Phone ThangKendrickDiana T [facility] Unavailable Rain Galaviz-C Unavailable Tavia Wyatt MD Unavailable Unavailable Erica Farrell APRN DOCTOR PODIATRIC MEDICINE Unavailable Rich Barrett MD Unavailable Neil Kent MD Unavailable Diana Desir [facility] Unavailable Livan Sharif MD Unavailable Catherine Cm MD Unavailable + Valery Veronica-C Unavailable [phone] Brea Quinn GRADUATE FELLOW DOCTOR PODIATRIC MEDICINE Unavailable [phone] Brea Quinn GRADUATE FELLOW DOCTOR PODIATRIC MEDICINE Unavailable [phone] Jose Francisco Johnson MD Unavailable Sydnie Martinez RN Unavailable Unavailable Alfonso Renteria MD Unavailable + [phone] Esha Grimm PA-C Primary Care Provider Cheng Todd PA-C Unavailable [phone] Radha Lomeli APRN DOCTOR PODIATRIC MEDICINE Unavailable [phone] Jelena David OD Unavailable Pao Joseph RN Unavailable Unavailable Wicho Grimmlincoln Medina PA-C Unavailable [phone] Valery Veronica PA-C Unavailable Rey Tay MD Unavailable Rocky Zepeda DO Unavailable Philip Dumont MD Unavailable [phone] Meredith Carrera PA-C Unavailable Neil Kent MD Unavailable Juan Pablo Emmanuel MD Unavailable Encounter Details Date Type Department Care Team (Late st Contact Info) Description 07/06/2023 MyC Medical Advice Adam Elliott [facility] Epilepsy Care 5775 [facility], [address] [place] [address] Alfonso Renteria MD 5775 [facility] [address] 200 [place] [address] Social History Tobacco Use Types [...] week 03/10/2023 How often do you attend [facility]? 1 to 4 times [...] Recorded PHQ-2 Score 0 06/20/2023 [facility] [...] exercise at this level? 30 min 03/10/2023 [place] Depression Scale Answer Date Recorded [place] Depression Score 5 01/14/2021 Last EPDS Self [...] in an overnight correction, or couch-surfing.) Yes 06/20/2023 Are you worried [...] Genny Hyman PA-C - 07/07/2023 11:13 AM REVIEW MANAGER No lesions/abnormal findings on MRI to account for possible seizure activity. Last office note indicated: If repeat MRI was normal would reduce levetiracetam to 250 mg per day for two weeks and then stop. Ok to proceed with this plan. Call if questions, concerns, or worsening of symptoms with discontinuation of the medication Genny Hyman PA-C EW MANAGER documented in this encounter Plan of Treatment Upcoming Encounters Date Type Department Care Team (Latest Contact Info) Description 02/14/2024 12:50 PM CDT Therapy Visit [facility] [address] [place] [phone] Rustam Medina, PT [facility] [id number] [place] [address] 03/06/2024 3:00 PM CDT Office Visit [facility] [place] [address] [facility] [address] [place] [phone] Radha Lomeli, GRADUATE FELLOW DOCTOR PODIATRIC MEDICINE [address] [place] 865395 03/07/2024 9:00 AM CDT Hospital Encounter [address] 5th [place] [phone] Rocky Zepeda DO 500 [place], [place] 6[address]65 03/07/2024 9:00 AM CDT - 03/07/2024 9:30 AM CDT Surgery [address] 5th [place] [phone] Rocky Zepeda DO 500 [place], [place] 086085 Esophagoscopy, gastroscopy, duodenoscopy (EGD), combined 06/21/2024 2:00 PM REVIEW MANAGER Office Visit [facility] Neurology [facility] [place] [address] [place] [address], [address] [place] [phone] [place] [address] [place] [address] Johnny Penn MD [address] 351375 Scheduled Procedures Name Priority Associated Diagnoses Date/Ti me ESOPHAGOGASTRODUODENOSCOPY Eosinophilic esophagitis Esophageal dysphagia 03/07/2024 9:00 AM CDT documented as of this encounter Visit Diagnoses Not on filedocumented in this encounter Additional Health Concerns Infection Onset Date Last Indicated Resolved Time Rule Out COVID-19 12/26/2023 12/26/2023 12/26/2023 9:50 AM CDT Assessment Noted Time PHQ-9 Depression Total Score: 4 06/20/20 23 8:40 AM REVIEW MANAGER documented as of this encounter Care Teams Transcript Evaluator Relationship Specialty Start Date End Date Esha Grimm PA-C [address] [place] [address] PCP - General Family Medicine 05/04/23 Diana Desir, [facility] [address] [place], [place] [address] Pharmacist Pharmacist 04/17/21 Rain Galaviz PA-C [address] [place] [address] [address] [place] [address] Physician Procedures Analyst Dermatology 04/28/21 Tavia Wyatt MD [address] [place] [address] DR ARRIOLA [facility][NOTE 3][place] [address] Dermatology 07/14/21 Erica Farrell APRN DOCTOR PODIATRIC MEDICINE 6405 [facility] [address] [place] [address] Nurse Practitioner Cardiovascular Disease 09/09/21 Rich Barrett MD [address] [facility] 9A [place], [place] 338035 Physician Ophthalmology 01/21/22 Neil Kent MD 500 [place], [place] 339375 Dermatology 02/24/22 Diana Desir, [facility] 3033 [place] [address] Assigned MTM Pharmacist 04/07/22 Livan Sharif MD [address], [facility] [address] [place] [address] Cardiovascular Disease 05/14/22 Catherine Cm MD [address] [facility] [address] [place], [place] 441415 Cardiovascular Disease 07/21/22 Valery Veronica, PA-C [address] [place] [address] 017865 Physician Procedures Analyst Dermatology 07/21/22 Brea Quinn APRN DOCTOR PODIATRIC MEDICINE 500 [place], [place] 716165 Nurse Practitioner Dermatology 09/21/22 Brea Quinn APRN DOCTOR PODIATRIC MEDICINE [address] [place] [address] Assigned Surgical Provider 10/09/22 [place] [address] [place] [facility] 300 [place] [address] Assigned Musculoskeletal Provider 10/09/22 Sydnie Martinez RN Personal Advocate & Liaison (PAL) Family Medicine 03/28/23 07/31/23 Alfonso Renteria MD 5775 [facility] 200 [place], [place] 581626 Assigned Neuroscience Provider 04/02/23 Cheng Todd PA-C [address] [place] [address] [id number] Assigned PCP 04/30/23 07/15/23 Radha Lomeli APRN DOCTOR PODIATRIC MEDICINE 6405 [facility] [address] [place], [place] 488945 Assigned Heart and Vascular Provider 05/28/23 Jelena David OD [address] [facility] [address] [place] [id number] MD Ophthalmology 06/15/23 Pao Joseph, VJ Personal Advocate & Liaison (PAL) Nurse 08/01/23 11/07/23 Esha Grimm PA-C [address] [place] [address]-547983 Assigned PCP 07/16/23 Valery Veronica PA-C [address] [place] [address] 689095 Physician Procedures Analyst Dermatology 09/19/23 Rey Tay MD [address] [place] [address] 737935 Gastroenterology 09/20/23 Rocky Zepeda DO [address] [place] [address] [phone] Physician Gastroenterology 09/20/23 Philip Dumont MD [address] [place] [address] 418745 Physician Ophthalmology 09/22/23 Meredith Carrera PA-C 909 [place] [address] Assigned Gastroenterology Provider 11/01/23 Neil Kent MD [address] [address] Dermatology 11/02/23 [place] [address] [place] [address] 144797 Neurological Surgery 12/26/23 documented as of this encounter
--- OUTSIDE RECORDS SUMMARY | 2024-02-12 05:47 | XMS_ITS | Encounter Summary ---
Author Organization [place] Address [address] [place] [address] Care Team Providers Care Orthopaedic Surgeon Name Role Phone Thang Diana [place] [facility] Unavailable [phone] Rain Galaviz PA-C Unavailable [phone] Tavia Wyatt MD Unavailable Unavailable Erica Farrell SCARFER OPERATOR HANDYMAN Unavailable Rich Barrett MD Unavailable Neil Kent MD Unavailable Diana Desir Stanislav [facility] Unavailable [phone] Livan Sharif MD Unavailable Catherine Cm MD Unavailable + Valery Veronica PA-C Unavailable [phone] Brea Quinn SCARFER OPERATOR HANDYMAN Unavailable Brea Quinn SCARFER OPERATOR HANDYMAN Unavailable Jose Francisco Johnson MD Unavailable Alfonso Renteria MD Unavailable + [phone] Esha Grimm PA-C Primary Care Provider Radha Lomeli SCARFER OPERATOR HANDYMAN Unavailable [phone] Jelena David OD Unavailable Pao Joseph RN Unavailable Unavailable AlfaWicholincoln Medina PA-C Unavailable [phone] Valery Veronica PA-C Unavailable [phone] Rey Tay MD Unavailable Rocky Zepeda DO Unavailable Philip Dumont MD Unavailable [phone] Meredith Carrera-C Unavailable [phone] Neil Kent MD Unavailable Juan Pablo Emmanuel MD Unavailable [phone] Encounter Details Date Type Department Care Team (Late st Contact Info) Description 08/04/2023 MyC Medical Advice [address] [address] [facility] 3033 [place] [address] Social History Tobacco Use Types [...] at this level? 30 min 03/10/2023 [place] Depression Scale Answer Date Recorded [place] Depression Score 5 01/14/2021 Last EPDS [...] Visit [facility] Rehabilitation Services [address] [phone] Rustam Medina, PT [facility] [id number] [place] [address] 03/06/2024 3:00 PM CDT Office Visit [facility] [place] [address] [place] [address] [address] [place] [phone] Radha Lomeli E, SCARFER OPERATOR HANDYMAN [address] [place], [place] [address] 03/07/2024 9:00 AM CDT Hospital Encounter [facility] 9[address] [facility] SE 5th [place] [phone] Rocky Zepeda DO 500 [place], [place] 716415 03/07/2024 9:00 AM CDT - 03/07/2024 9:30 AM CDT Surgery [facility] 9[address] [facility] SE 5th [place] [phone] Rocky Zepeda DO 500 [place], [place] 028235 Esophagoscopy, gastroscopy, duodenoscopy (EGD), combined 06/21/2024 2:00 PM FOREST RANGER TECHNICIAN Office Visit [facility] Neurology Clinics - [place] 6545 [facility], [address] [place] [address] [place] [address] [place] [address] Johnny Penn MD [address] [facility] [place] [address] Scheduled Procedures Name Priority Associated Diagnoses Date/Ti ca ESOPHAGOGASTRODUODENOSCOPY Eosinophilic esophagitis Esophageal dysphagia 03/07/2024 9:00 AM CDT documented as of this encounter Visit Diagnoses Not on filedocumented in this encounter Additional Health Concerns Infection Onset Date Last Indicated Resolved Time Rule Out COVID-19 12/26/2023 12/26/2023 12/26/2023 9:50 AM CDT Assessment Noted Time PHQ-9 Depression Total Score: 4 06/20/20 23 8:40 AM FOREST RANGER TECHNICIAN documented as of this encounter Care Teams Orthopaedic Surgeon Relationship Specialty Start Date End Date Esha Grimm PA-C [address] [place] [phone] PCP - General Family Medicine 05/04/23 Diana Desir, [facility] [address] [place] [address] Pharmacist Pharmacist 04/17/21 Rain Galaviz PA-C [address] [place] [address] [address] [place] [address] Physician Secondary Spanish Teacher Dermatology 04/28/21 Tavia Wyatt MD [address] [place] [address] [place] [address] Dermatology 07/14/21 Erica Farrell APRN HANDYMAN [address] [place] [address] Nurse Practitioner Cardiovascular Disease 09/09/21 Rich Barrett MD [address] 772985 Physician Ophthalmology 01/21/22 Neil Kent MD 500 [place], [place] 419865 Dermatology 02/24/22 Diana Desir, [facility] [address] [place] [address] Assigned MTM Pharmacist 04/07/22 Livan Sharif MD [address], [address] [place] [address] Cardiovascular Disease 05/14/22 Catherine Cm MD [address] [place] [address] Cardiovascular Disease 07/21/22 JeremíasValery damon PA-C 909 [place] [address] Physician Secondary Spanish Teacher Dermatology 07/21/22 Brea Quinn APRN HANDYMAN 500 [place] [address] Nurse Practitioner Dermatology 09/21/22 Brea Quinn APRN HANDYMAN 6401 [place] [address] Assigned Surgical Provider 10/09/22 [place] [address] [place] [address] Assigned Musculoskeletal Provider 10/09/22 Alfonso Renteria MD 5775 [facility] 200 [place], [place] 277146 Assigned Neuroscience Provider 04/02/23 Radha Lomeli APRN HANDYMAN 6405 [facility] [address] [place], [place] 851125 Assigned Heart and Vascular Provider 05/28/23 Jelena David OD [address] [place] [address] Ophthalmology 06/15/23 Pao Joseph, VJ Personal Advocate & Liaison (PAL) Nurse 08/01/23 11/07/23 Esha Grimm PA-C [address] [place] [phone] Assigned PCP 07/16/23 Valery Veronica PA-C [address] [place] [address] Physician Secondary Spanish Teacher Dermatology 09/19/23 Rey Tay MD [address] [place] [address] 582405 MD Gastroenterology 09/20/23 Rocky Zepeda DO [address] [place] [address] 420145 Physician Gastroenterology 09/20/23 Philip Dumont MD [address] [place] [address] Physician Ophthalmology 09/22/23 Meredith Carrera PA-C [address] [place] [address] Assigned Gastroenterology Provider 11/01/23 Neil Kent MD [address] [address] Dermatology 11/02/23 [place] [address] [place] [address] Neurological Surgery 12/26/23 documented as of this encounter
--- OUTSIDE RECORDS SUMMARY | 2024-02-12 05:47 | XMS_ITS | Encounter Summary ---
Author Organization [facility] Address [address] [place] [address] Care Team Providers Care Clerical Aide Name Role Phone Thang Diana [place] [facility] Unavailable [phone] Rain Galaviz PA-C Unavailable [phone] Tavia Wyatt MD Unavailable Unavailable Erica Farrell CHARGE PREPARATION TECHNICIAN JOINTER MACHINE OPERATOR Unavailable Rich Barrett MD Unavailable Neil Kent MD Unavailable Diana Desir Stanislav [facility] Unavailable [phone] Livan Sharif MD Unavailable Catherine Cm MD Unavailable + Valery Veronica PA-C Unavailable [phone] Brea Quinn CHARGE PREPARATION TECHNICIAN JOINTER MACHINE OPERATOR Unavailable [phone] Brea Quinn CHARGE PREPARATION TECHNICIAN JOINTER MACHINE OPERATOR Unavailable Jose Francisco Johnson MD Unavailable Alfonso Renteria MD Unavailable + [phone] Esha Grimm PA-C Primary Care Provider [phone] Radha Lomeli CHARGE PREPARATION TECHNICIAN JOINTER MACHINE OPERATOR Unavailable [phone] Jelena David OD Unavailable Pao Joseph RN Unavailable Unavailable Esha GrimmC Unavailable [phone] Valery Veronica PA-C Unavailable [phone] Rey Tay MD Unavailable Rocky Zepeda DO Unavailable Philip Dumont MD Unavailable [phone] Meredith CarreraC Unavailable [phone] Neil Kent MD Unavailable Juan Pablo Emmanuel MD Unavailable [phone] Encounter Details Date Type Department Care Team (Late st Contact Info) Description 08/10/[address] [facility] [id number] [place] [address] Esha Grimm PA-C [id number] [place] [place] [address] Social History Tobacco Use Types Packs/Day [...] Answer Date Recorded PHQ-2 Score 0 06/20/2023 [facility] [...] at this level? 30 min 03/10/2023 [place] Depression Scale Answer Date Recorded [place] Depression Score 5 01/14/2021 Last EPDS Self [...] Asiya Reddy RN - 08/10/2023 11:40 AM RN PERINATAL Esha- see Outitudet message below. Patient did call to see if E-Visit would be addressed today. No immediate concern at this time. Advised UC if needed sooner. Asiya Reddy RN PERINATAL documented in this encounter Plan of Treatment Upcoming Encounters Date Type Department Care Team (Latest Contact Info) Description 02/14/2024 12:50 PM CDT Therapy Visit [facility] [address] [place] [phone] Rustam Medina, PT [facility] [id number] [place] [address] 03/06/2024 3:00 PM CDT Office Visit [facility] [address] [place] [phone] Radha Lomeli, CHARGE PREPARATION TECHNICIAN JOINTER MACHINE OPERATOR [address] [place] [address] 03/07/2024 9:00 AM CDT Hospital Encounter [facility] [address] [place] [address] 5th [place] [phone] Rocky Zepeda, 500 [place], [place] [address] 03/07/2024 9:00 AM CDT - 03/07/2024 9:30 AM CDT Surgery [facility] 909 [facility] 5th [place] [phone] Rocky Zepeda, DO 500 [place], [place] [address] Esophagoscopy, gastroscopy, duodenoscopy (EGD), combined 06/21/2024 2:00 PM RN PERINATAL Office Visit [facility] [address] [facility], [address] [place] [address] [place] [address] [place] [address] [place] [address] Johnny Penn MD [address] [place] [address] Scheduled Procedures Name Priority Associated Diagnoses Date/Ti me ESOPHAGOGASTRODUODENOSCOPY Eosinophilic esophagitis Esophageal dysphagia 03/07/2024 9:00 AM CDT documented as of this encounter Visit Diagnoses Not on filedocumented in this encounter Additional Health Concerns Infection Onset Date Last Indicated Resolved Time Rule Out COVID-19 12/26/2023 12/26/2023 12/26/2023 9:50 AM CDT Assessment Noted Time PHQ-9 Depression Total Score: 4 06/20/20 23 8:40 AM RN PERINATAL documented as of this encounter Care Teams Clerical Aide Relationship Specialty Start Date End Date Esha Grimm PA-C [address] [place] [address] PCP - General Family Medicine 05/04/23 Diana Desir, [facility] [address] [place] [address] Pharmacist Pharmacist 04/17/21 Rain Galaviz PA-C [address] [place] [address] [address] [place] [address] Physician Crm Consultant Dermatology 04/28/21 Tavia Wyatt MD [address] [place] [address] DR [facility] [facility] [place] [address] Dermatology 07/14/21 Erica Farrell APRN JOINTER MACHINE OPERATOR [address] [facility] [address] [place], [place] [address] Nurse Practitioner Cardiovascular Disease 09/09/21 Rich Barrett MD 516 [facility] 9A [place], [place] [address] Physician Ophthalmology 01/21/22 Neil Kent MD 500 [place], [place] 672355 Dermatology 02/24/22 Diana Desir, [facility] [address] [place] [address] Assigned MTM Pharmacist 04/07/22 Livan Sharif MD [address], [facility] [address] [place] [address] Cardiovascular Disease 05/14/22 Catherine Cm MD 6[address] [facility] [address] [place] [address] Cardiovascular Disease 07/21/22 Valery Veronica, PA-C [address] [place] [address] 251185 Physician Crm Consultant Dermatology 07/21/22 Brea Quinn APRN JOINTER MACHINE OPERATOR [address] [place] [address] 064515 Nurse Practitioner Dermatology 09/21/22 Brea Quinn APRN JOINTER MACHINE OPERATOR 6401 [place], [place] 361342 Assigned Surgical Provider 10/09/22 [place] [address] [address] Assigned Musculoskeletal Provider 10/09/22 Alfonso Renteria MD 5775 [facility] 200 [place], [place] [address] Assigned Neuroscience Provider 04/02/23 Radha Lomeli APRN JOINTER MACHINE OPERATOR [address] [place] [address] Assigned Heart and Vascular Provider 05/28/23 Jelena David OD [address] [facility] [place] [address] MD Ophthalmology 06/15/23 Pao Joseph, RN Personal Advocate & Liaison (PAL) Nurse 08/01/23 11/07/23 Esha Grimm PA-C [address] [place] [address] Assigned PCP 07/16/23 Valery Veronica PA-C [address] [place] [address] 607725 Physician Crm Consultant Dermatology 09/19/23 Rey Tay MD [address] [place] [address] 716985 MD Gastroenterology 09/20/23 Rocky Zepeda DO [address] [place] [address] 790805 Physician Gastroenterology 09/20/23 Philip Dumont MD [address] [place] [address] 826915 Physician Ophthalmology 09/22/23 Meredith Carrera PA-C [address] [place] [address] 239065 Assigned Gastroenterology Provider 11/01/23 Neil Kent MD [address] [address] Dermatology 11/02/23 [place] [address] [place] [address] Neurological Surgery 12/26/23 documented as of this encounter
--- OUTSIDE RECORDS SUMMARY | 2024-02-12 05:47 | XMS_ITS | Encounter Summary ---
Author Organization [facility] Address [address] [place] [address] Care Team Providers Care Credentialing Analyst Name Role Phone Thang Diana [place] [facility] Unavailable Rain Galaviz PA-C Unavailable Tavia Wyatt MD Unavailable Unavailable Erica Farrell SECONDARY CONNECTOR ARMATURE WELL SERVICES OPERATOR Unavailable Rich Barrett MD Unavailable Neil Kent MD Unavailable Diana Desir Stanislav [facility] Unavailable [phone] Livan Sharif MD Unavailable Catherine Cm MD Unavailable + Valery Veronica PA-C Unavailable [phone] Brea Quinn SECONDARY CONNECTOR ARMATURE WELL SERVICES OPERATOR Unavailable Brea Quinn SECONDARY CONNECTOR ARMATURE WELL SERVICES OPERATOR Unavailable [phone] Jose Francisco Johnson MD Unavailable Alfonso Renteria MD Unavailable + [phone] Esha Grimm PA-C Primary Care Provider Radha Lomeli SECONDARY CONNECTOR ARMATURE WELL SERVICES OPERATOR Unavailable [phone] Jelena David OD Unavailable Pao Joseph RN Unavailable Unavailable Esha GrimmC Unavailable [phone] Valery Veronica PA-C Unavailable [phone] Rey Tay MD Unavailable Rocky Zepeda DO Unavailable Philip Dumont MD Unavailable [phone] Meredith CarreraC Unavailable [phone] Neil Kent MD Unavailable Juan Pablo Emmanuel MD Unavailable [phone] Reason for Visit * Reason Onset Date Comments Outreach 08/01/2023 Encounter Details Date Type Department Care Team (Late st Contact Info) Description 08/01/2023 MyC Medical Advice [facility] [address] [place] [phone] Esha Grimm PA-C [id number] [place] [address] Outreach Social History Tobacco Use Types [...] exercise at this level? 30 min 03/10/2023 [place] Depression Scale Answer Date Recorded [place] Depression Score 5 01/14/2021 Last EPDS Self [...] Joseph RN - 08/01/2023 2:31 PM CST RITA [place]. See pt's Trading Metricst messages. Routed to PCP Pao Marcos RN PAL (Patient Advocate Liaison) [facility] AZZO POLISHER HELPER documented in this encounter Plan of Treatment Upcoming Encounters Date Type Department Care Team (Latest Contact Info) Description 02/14/2024 12:50 PM CDT Therapy Visit [facility] [place] [address] [place] [address] Rustam Medina, PT [facility] [address] [place] [address] [phone] 03/06/2024 3:00 PM CDT Office Visit [facility] [address] [place] [phone] Radha Lomeli, SECONDARY CONNECTOR ARMATURE WELL SERVICES OPERATOR [address] [place] [address] 03/07/2024 9:00 AM CDT Hospital Encounter [facility] [place] [address] 5th [place] [phone] Rocky Zepeda DO 500 [place], [place] [address] 03/07/2024 9:00 AM CDT - 03/07/2024 9:30 AM CDT Surgery [facility] [place] [address] 5th [place] [phone] Rocky Zepeda DO 500 [place], [place] 4268[address] Esophagoscopy, gastroscopy, duodenoscopy (EGD), combined 06/21/2024 2:00 PM TERRAZZO POLISHER HELPER Office Visit [facility] [place] [address] [place] [address], [address] [place] [address] [place] [address] [place] [address] Johnny Penn MD [address] [place] [address] Scheduled Procedures Name Priority Associated Diagnoses Date/Ti wa ESOPHAGOGASTRODUODENOSCOPY Eosinophilic esophagitis Esophageal dysphagia 03/07/2024 9:00 AM CDT documented as of this encounter Visit Diagnoses Not on filedocumented in this encounter Additional Health Concerns Infection Onset Date Last Indicated Resolved Time Rule Out COVID-19 12/26/2023 12/26/2023 12/26/2023 9:50 AM CDT Assessment Noted Time PHQ-9 Depression Total Score: 4 06/20/20 23 8:40 AM TERRAZZO POLISHER HELPER documented as of this encounter Care Teams Credentialing Analyst Relationship Specialty Start Date End Date Esha Grimm PA-C [address] [place] [address] PCP - General Family Medicine 05/04/23 Diana Desir, [facility] [address] [place] [address] Pharmacist Pharmacist 04/17/21 Rain Galaviz PA-C [address] [place] [address] [address] [place] [address] Physician Campground Caretaker Dermatology 04/28/21 Tavia Wyatt MD [address] [place] [address] [address] [place] [address] Dermatology 07/14/21 Erica Farrell APRN WELL SERVICES OPERATOR [address] [phone] [place] [address] Nurse Practitioner Cardiovascular Disease 09/09/21 Rich Barrett MD 516 [facility] 9A [place], [place] 4099[address] Physician Ophthalmology 01/21/22 Neil Kent MD 500 [place], [place] 7[address]05 Dermatology 02/24/22 Diana Desir, [facility] [address] [place] [address] Assigned MTM Pharmacist 04/07/22 Livan Sharif MD [address] [facility] [address] [place] [address] Cardiovascular Disease 05/14/22 Catherine Cm MD [address] [facility] [address] [place] [address] Cardiovascular Disease 07/21/22 Valery Veronica, PAUcheC [address] [place] [address]73505 Physician Campground Caretaker Dermatology 07/21/22 Brea Quinn APRN WELL SERVICES OPERATOR [address] [place] [address] 654265 Nurse Practitioner Dermatology 09/21/22 Brea Quinn APRN WELL SERVICES OPERATOR 6401 [facility] [place] [address] Assigned Surgical Provider 10/09/22 [place] [address] [facility] 300 [place] [address] Assigned Musculoskeletal Provider 10/09/22 Alfonso Renteria MD 5775 [facility] 200 [place], [place] [address] Assigned Neuroscience Provider 04/02/23 Radha Lomeli APRN WELL SERVICES OPERATOR [address] [place] [address] Assigned Heart and Vascular Provider 05/28/23 Jelena aDvid OD [address] [place] [address] MD Ophthalmology 06/15/23 Pao Joseph, RN Personal Advocate & Liaison (PAL) Nurse 08/01/23 11/07/23 Esha Grimm PA-C [address] [place] [phone] Assigned PCP 07/16/23 Valery Veronica PA-C [address] [place] [address]855 Physician Campground Caretaker Dermatology 09/19/23 Rey Tay MD [address] [place] [address] 943675 MD Gastroenterology 09/20/23 Rocky Zepeda DO [address] [place] [address] 616885 Physician Gastroenterology 09/20/23 Philip Dumont MD [address] [place] [address]455 Physician Ophthalmology 09/22/23 Meredith Carrera PA-C [address] [place] [address] 046785 Assigned Gastroenterology Provider 11/01/23 Neil Kent MD [address] [address] Dermatology 11/02/23 [place] [address] [place] [address] Neurological Surgery 12/26/23 documented as of this encounter
--- OUTSIDE RECORDS SUMMARY | 2024-02-12 05:47 | XMS_ITS | Encounter Summary ---
Author Organization [facility] [place] Address [address] [place] [address] Care Team Providers Care Range Aid Name Role Phone ThangKendrickDiana T [facility] Unavailable Rain Galaviz-C Unavailable Tavia Wyatt MD Unavailable Unavailable Erica Farrell GOLF COURSE SUPERINTENDENT CLERK ANALYST Unavailable Rich Barrett MD Unavailable Neil Kent MD Unavailable Diana Desir [facility] Unavailable [phone] Livan Sharif MD Unavailable Catherine Cm MD Unavailable + Valery Veronica-C Unavailable [phone] Brea Quinn GOLF COURSE SUPERINTENDENT CLERK ANALYST Unavailable [phone] Brea Quinn GOLF COURSE SUPERINTENDENT CLERK ANALYST Unavailable Jose Francisco Johnson MD Unavailable Sydnie Martinez RN Unavailable Unavailable Alfonso Renteria MD Unavailable + [phone] Esha Grimm PA-C Primary Care Provider Radha Lomeli GOLF COURSE SUPERINTENDENT CLERK ANALYST Unavailable Jelena David OD Unavailable Pao Joseph RN Unavailable Unavailable [facility] PA-C Unavailable [phone] JeremíasValery PA-C Unavailable [phone] Rey Tay MD Unavailable Rocky Zepeda DO Unavailable Philip Dumont MD Unavailable [phone] Meredith Carrera PA-C Unavailable [phone] Neil Kent MD Unavailable Juan Pablo Emmanuel MD Unavailable [phone] Encounter Details Date Type Department Care Team (Late st Contact Info) Description 07/27/2023 [facility] Medical Advice [address] [address] [facility] 3033 [place] [address] Social History Tobacco Use Types [...] exercise at this level? 30 min 03/10/2023 [place] Depression Scale Answer Date Recorded [place] Depression Score 5 01/14/2021 Last EPDS Self [...] Description 02/14/2024 12:50 PM CDT Therapy Visit [facility] [address] [phone] Rustam Medina, PT [facility] [address] [place] [address] 03/06/2024 3:00 PM CDT Office Visit [facility] [place] [address] [facility] [address] [place] [phone] Radha Lomeli APRN CLERK ANALYST [address] [place] [address] 03/07/2024 9:00 AM CDT Hospital Encounter [facility] [address] [facility] [address] 5th [place] [phone] Rocky Zepeda DO 500 [place], [place] [address] 03/07/2024 9:00 AM CDT - 03/07/2024 9:30 AM CDT Surgery [facility] [address] [facility] [address] 5th [place] [phone] Rocky Zepeda, 500 [place], [place] 03[address] Esophagoscopy, gastroscopy, duodenoscopy (EGD), combined 06/21/2024 2:00 PM CAN PILER Office Visit [facility] [place] [address] [facility], [address] [place] [address] [place] [address] [place], [place] [phone] Johnny Penn MD [address] [place] [address] Scheduled Procedures Name Priority Associated Diagnoses Date/Ti az ESOPHAGOGASTRODUODENOSCOPY Eosinophilic esophagitis Esophageal dysphagia 03/07/2024 9:00 AM CDT documented as of this encounter Visit Diagnoses Not on filedocumented in this encounter Additional Health Concerns Infection Onset Date Last Indicated Resolved Time Rule Out COVID-19 12/26/2023 12/26/2023 12/26/2023 9:50 AM CDT Assessment Noted Time PHQ-9 Depression Total Score: 4 06/20/20 23 8:40 AM CAN PILER documented as of this encounter Care Teams Range Aid Relationship Specialty Start Date End Date Esha Grimm PA-C [address] [place] [phone] PCP - General Family Medicine 05/04/23 Diana Desir, [facility] [address] [facility] [address] Pharmacist Pharmacist 04/17/21 Rain Galaviz PA-C [address] [place] [address] [address] [place] [address] Physician Mainspring Fabrication Supervisor Dermatology 04/28/21 Tavia Wyatt MD [address] [place] [address] [place] [address] Dermatology 07/14/21 Erica Farrell APRN CLERK ANALYST [address] [place] [address] Nurse Practitioner Cardiovascular Disease 09/09/21 Rich Barrett MD 516 [facility], [address] 0279[address] Physician Ophthalmology 01/21/22 Neil Kent MD 500 [place], [place] [address] Dermatology 02/24/22 Diana Desir, [facility] [address] [place] [address] Assigned MTM Pharmacist 04/07/22 Livan Sharif MD [address], [facility] [address] [place] [address] Cardiovascular Disease 05/14/22 Catherine Cm MD [address] [place] [address] [place] [address] Cardiovascular Disease 07/21/22 Valery Veronica PA-C 909 [place] [address] Physician [employer] Fabrication Supervisor Dermatology 07/21/22 Brea Quinn APRN CLERK ANALYST 500 [place] [address] Nurse Practitioner Dermatology 09/21/22 Brea Quinn APRN CLERK ANALYST 6401 [place], [place] 760502 Assigned Surgical Provider 10/09/22 [place] [address] [address] Assigned Musculoskeletal Provider 10/09/22 Sydnie Martinez RN Personal Advocate & Liaison (PAL) Family Medicine 03/28/23 07/31/23 Alfonso Renteria MD 5775 [facility] 200 [place] [address] Assigned Neuroscience Provider 04/02/23 Radha Lomeli APRN CLERK ANALYST 6405 [facility] [address] [place] [address] Assigned Heart and Vascular Provider 05/28/23 Jelena David OD [address] [facility] [place] [address] Ophthalmology 06/15/23 Pao Joseph, VJ Personal Advocate & Liaison (PAL) Nurse 08/01/23 11/07/23 Esha Grimm PA-C [address] [place] [address] Assigned PCP 07/16/23 Valery Veronica PA-C [address] [place] [address] Physician [employer]spring Fabrication Supervisor Dermatology 09/19/23 Rey Tay MD [address] [place] [address] MD Gastroenterology 09/20/23 Rocky Zepeda DO [address] [place] [address] Physician Gastroenterology 09/20/23 Philip Dumont MD [address] [place] [address] Physician Ophthalmology 09/22/23 Meredith Carrera PA-C [address] [place] [address] Assigned Gastroenterology Provider 11/01/23 Neil Ketn MD [address] 544780 Dermatology 11/02/23 [place] [address] [place] [address] Neurological Surgery 12/26/23 documented as of this encounter
--- OUTSIDE RECORDS SUMMARY | 2024-02-12 05:47 | XMS_ITS | Encounter Summary ---
Author Organization [place] Address [address] [place] [address] Care Team Providers Care Quality Assurance Director Name Role Phone ThangKendrickDiana T [facility] Unavailable Rain Galaviz-C Unavailable Tavia Wyatt MD Unavailable Unavailable Erica Farrell APRN CUT OFF MAN Unavailable Rich Barrett MD Unavailable Neil Kent MD Unavailable Diana Desir [facility] Unavailable [phone] Livan Sharif MD Unavailable Catherine Cm MD Unavailable + Valery Veronica-C Unavailable [phone] Brea Quinn SOCIAL WORKER AIDE CUT OFF MAN Unavailable [phone] Brea Quinn SOCIAL WORKER AIDE CUT OFF MAN Unavailable Jose Francisco Johnson MD Unavailable Sydnie Martinez RN Unavailable Unavailable Alfonso Renteria MD Unavailable + [phone] Esha Grimm PA-C Primary Care Provider Cheng Todd PA-C Unavailable Radha Lomeli APRN CUT OFF MAN Unavailable [phone] Jelena David OD Unavailable Pao Joseph RN Unavailable Unavailable Wicho Grimmlincoln Medina PA-C Unavailable [phone] Valery Veronica PA-C Unavailable Rey Tay MD Unavailable Rocky Zepeda DO Unavailable Philip Dumont MD Unavailable [phone] Meredith Carrera PA-C Unavailable Neil Kent MD Unavailable Juan Pablo Emmanuel MD Unavailable [phone] Encounter Details Date Type Department Care Team (Late st Contact Info) Description 06/17/2023 MyC Medical Advice Adam Elliott [facility] Epilepsy Care [address] [facility], [address] [place] [address] Alfonso Renteria MD 5775 [facility] DANNI 200 [place] [address] Social History Tobacco Use Types [...] you attend [facility] or anabaptist services? 1 to 4 times [...] exercise at this level? 30 min 03/10/2023 [place] Depression Scale Answer Date Recorded [place] Depression Score 5 01/14/2021 Last EPDS Self [...] calling to follow up on the below HYLA Mobilet message. Patient continues to have a lot of dizzyness and neck pain. OMER SUPPORT COORDINATOR documented in this encounter Plan of Treatment Upcoming Encounters Date Type Department Care Team (Latest Contact Info) Description 02/14/2024 12:50 PM CDT Therapy Visit [facility] Rehabilitation [facility] [place] [address] [place] [phone] Rustam Medina, PT [facility] [address] [place] [address] 03/06/2024 3:00 PM CDT Office Visit [facility] Heart Clinic [address] [place] [address] Radha Lomeli, SOCIAL WORKER AIDE CUT OFF MAN [address] [place] 1673[address] 03/07/2024 9:00 AM CDT Hospital Encounter [facility] [place] [address]th [place] [phone] Rocky Zepeda DO 500 [place], [place] [address] 03/07/2024 9:00 AM CDT - 03/07/2024 9:30 AM CDT Surgery [address]th [place] [phone] Rocky Zepeda DO 500 [place], [place] [address] Esophagoscopy, gastroscopy, duodenoscopy (EGD), combined 06/21/2024 2:00 PM CUSTOMER SUPPORT COORDINATOR Office Visit [facility] Neurology Clinics - [address], [address] [place] [phone] [place] [address] [place] [address] Johnny Penn MD [address] [place] [id number] Scheduled Procedures Name Priority Associated Diagnoses Date/Ti me ESOPHAGOGASTRODUODENOSCOPY Eosinophilic esophagitis Esophageal dysphagia 03/07/2024 9:00 AM CDT documented as of this encounter Visit Diagnoses Not on filedocumented in this encounter Additional Health Concerns Infection Onset Date Last Indicated Resolved Time Rule Out COVID-19 12/26/2023 12/26/2023 12/26/2023 9:50 AM CDT Assessment Noted Time PHQ-9 Depression Total Score: 6 11/06/20 23 9:29 AM CUSTOMER SUPPORT COORDINATOR documented as of this encounter Care Teams Quality Assurance Director Relationship Specialty Start Date End Date Esha Grimm PA-C [address] [place] [phone] PCP - General Family Medicine 05/04/23 Diana Desir, [facility] [address] [place] [address] Pharmacist Pharmacist 04/17/21 Rain Galaviz PA-C [address] [place] [address] [address] [place] [address] Physician Aviation Maintenance Instructor Dermatology 04/28/21 Tavia Wyatt MD [address] [place] [address] [address] [place] [address] Dermatology 07/14/21 Erica Farrell APRN CUT OFF MAN 6[address] [facility] [address] [place] [address] Nurse Practitioner Cardiovascular Disease 09/09/21 Rich Barrett MD [address] [facility] 9A [place], [place] [address] Physician Ophthalmology 01/21/22 Neil Kent MD 500 [place], [place] 577755 Dermatology 02/24/22 Diana Desir, [facility] [address] [place] [address] Assigned MTM Pharmacist 04/07/22 Livan Sharif MD [address] [facility] [address] [place] [address] Cardiovascular Disease 05/14/22 Catherine Cm MD [address] [facility] [address] [place] 095855 Cardiovascular Disease 07/21/22 Valery Veronica PA-C [address] [place] [address] 973365 Physician Aviation Maintenance Instructor Dermatology 07/21/22 Brea Quinn APRN CUT OFF MAN [address] [place] [address] 645445 Nurse Practitioner Dermatology 09/21/22 Brea Quinn APRN CUT OFF MAN 6401 [place], [place] 419232 Assigned Surgical Provider 10/09/22 [place] [address] [facility] 300 [place] [address] Assigned Musculoskeletal Provider 10/09/22 Sydnie Martinez RN Personal Advocate & Liaison (PAL) Family Medicine 03/28/23 07/31/23 Alfonso Renteria MD 5775 [facility] 200 [place], [place] 696016 Assigned Neuroscience Provider 04/02/23 Cheng Todd PA-C [address] [place] [address] [phone] Assigned PCP 04/30/23 07/15/23 Radha Lomeli APRN CUT OFF MAN 6[address] [facility] [address] [place] [address] Assigned Heart and Vascular Provider 05/28/23 Jelena David OD [address] [place] [address] MD Ophthalmology 06/15/23 Pao Joseph, VJ Personal Advocate & Liaison (PAL) Nurse 08/01/23 11/07/23 Esha Grimm PA-C [address] [place] [phone] Assigned PCP 07/16/23 Valery Veronica PA-C [address] [place] [address] Physician Aviation Maintenance Instructor Dermatology 09/19/23 Rey Tay MD [address] [place] [address]85 MD Gastroenterology 09/20/23 Rocky Zepeda DO [address] [place] [address] 936185 Physician Gastroenterology 09/20/23 Philip Dumont MD [address] [place] [address] 598725 Physician Ophthalmology 09/22/23 Meredith Carrera PA-C [address] [place] [address] 054765 Assigned Gastroenterology Provider 11/01/23 Neil Kent MD [address] [place] [address] Dermatology 11/02/23 [place] [address] [place] [address] Neurological Surgery 12/26/23 documented as of this encounter
--- OUTSIDE RECORDS SUMMARY | 2024-02-12 05:47 | XMS_ITS | Encounter Summary ---
Author Organization [place] Address [address] [place] [address] Care Team Providers Care Sleeve Baster Name Role Phone ThangKendrickDiana T [facility] Unavailable Rain Galaviz-C Unavailable Tavia Wyatt MD Unavailable Unavailable Erica Farrell APRN MARKETING TECHNOLOGY SPECIALIST Unavailable Rihc Barrett MD Unavailable Neil Kent MD Unavailable Diana Desir [facility] Unavailable [phone] Livan Sharif MD Unavailable Catherine Cm MD Unavailable + Valery Veronica-C Unavailable [phone] Brea Quinn ONCOLOGY NURSE NAVIGATOR MARKETING TECHNOLOGY SPECIALIST Unavailable [phone] Brea Quinn ONCOLOGY NURSE NAVIGATOR MARKETING TECHNOLOGY SPECIALIST Unavailable Jose Francisco Johnson MD Unavailable Sydnie Martinez RN Unavailable Unavailable Alfonso Renteria MD Unavailable + [phone] Esha Grimm PA-C Primary Care Provider Cheng ToddC Unavailable [phone] Radha Lomeli APRN MARKETING TECHNOLOGY SPECIALIST Unavailable [phone] Jelena David OD Unavailable Pao Joseph RN Unavailable Unavailable Esha Grimm PA-C Unavailable [phone] Valery VeronicaC Unavailable [phone] Rey Tay MD Unavailable Rocky Zepeda DO Unavailable Philip Dumont MD Unavailable [phone] Meredith CarreraC Unavailable [phone] Neil Kent MD Unavailable Juan Pablo Emmanuel MD Unavailable [phone] Reason for Visit * Reason Onset Date Comments Appointment 06/17/2023 Encounter Details Date Type Department Care Team (Late st Contact Info) Description 06/17/2023 Telephone [facility] [address] [place] [phone] Esha Grimm PA-C [id number] [place] [phone] Appointment Social History Tobacco Use Types [...] 03/10/2023 How often do you attend [facility] or mandaen services? 1 to 4 times [...] 06/20/2023 [facility] - [...] exercise at this level? 30 min 03/10/2023 [place] Depression Scale Answer Date Recorded [place] Depression Score 5 01/14/2021 Last EPDS Self [...] an overnight senior care, or couch-surfing.) Yes 06/20/2023 Are you worried [...] they are all full today Lulu Day/ Plumber Helper ACE TAPPER * Telephone Encounter - Rosio Eller - [...] we send this information to you in [facility] or would you prefer to receive a phone call?: Patient would prefer a phone call Okay to leave a detailed message?: Yes at Home number on file [phone] (home) Call taken on 06/17/2023 at 7:13 AM by Rosio Eller ACE TAPPER documented in this encounter Plan of Treatment Upcoming Encounters Date Type Department Care Team (Latest Contact Info) Description 02/14/2024 12:50 PM CDT Therapy Visit [facility] Services [place] [address] [place] [phone] Rustam Medina, PT [facility] [address] [place] [address] 03/06/2024 3:00 PM CDT Office Visit [facility] [address] [facility] [address] [place] [phone] Radha Lomeli APRN MARKETING TECHNOLOGY SPECIALIST 6405 [facility] [address] [place] [address] 03/07/2024 9:00 AM CDT Hospital Encounter [address] 5th [place] [phone] Rocky Zepeda DO 500 [place], [place] 8[address]25 03/07/2024 9:00 AM CDT - 03/07/2024 9:30 AM CDT Surgery [address] 5th [place] [phone] Rocky Zepeda DO 500 [place], [place] [address] Esophagoscopy, gastroscopy, duodenoscopy (EGD), combined 06/21/2024 2:00 PM FURNACE TAPPER Office Visit [facility] Neurology [facility] [address] [facility], [address] [place] [phone] [place] [address] [place], [place] 382317 Johnny Penn MD [address] [place] 914865 Scheduled Procedures Name Priority Associated Diagnoses Date/Ti nm ESOPHAGOGASTRODUODENOSCOPY Eosinophilic esophagitis Esophageal dysphagia 03/07/2024 9:00 AM CDT documented as of this encounter Visit Diagnoses Not on filedocumented in this encounter Additional Health Concerns Infection Onset Date Last Indicated Resolved Time Rule Out COVID-19 12/26/2023 12/26/2023 12/26/2023 9:50 AM CDT Assessment Noted Time PHQ-9 Depression Total Score: 6 05/16/20 9:29 AM FURNACE TAPPER documented as of this encounter Care Teams Sleeve Baster Relationship Specialty Start Date End Date Esha Grimm PA-C [address] [place] [address] PCP - General Family Medicine 05/04/23 Diana Desir, [facility] 3033 [place] [address] Pharmacist Pharmacist 04/17/21 Rain Galaviz PA-C [address] [place] [address] [address] [place] [address] Physician Drawbench Operator Dermatology 04/28/21 Tavia Wyatt MD [address] [place] [address] [place] [address] Dermatology 07/14/21 Erica Farrell APRN MARKETING TECHNOLOGY SPECIALIST [address] [place] [address] Nurse Practitioner Cardiovascular Disease 09/09/21 Rich Barrett MD 516 [facility] 9A [place], [place] [phone] Physician Ophthalmology 01/21/22 Neil Kent MD 500 [place], [place] [phone] Dermatology 02/24/22 Diana Desir, [facility] 3033 [place], [place] 583176 Assigned MTM Pharmacist 04/07/22 Livan Sharif MD [address] [facility]00 [place], [place] [address] Cardiovascular Disease 05/14/22 Catherine Cm MD [address] 241435 Cardiovascular Disease 07/21/22 Valery Veronica, PA-C 9 [place], [place] 0[address] Physician Drawbench Operator Dermatology 07/21/22 Brea Quinn APRN MARKETING TECHNOLOGY SPECIALIST 500 [place], [place] 027545 Nurse Practitioner Dermatology 09/21/22 rBea Quinn APRN MARKETING TECHNOLOGY SPECIALIST 6401 [facility] [place] 642282 Assigned Surgical Provider 10/09/22 [place] [address] [address] [facility] 300 [place] [address] Assigned Musculoskeletal Provider 10/09/22 Sydnie Martinez RN Personal Advocate & Liaison (PAL) Family Medicine 03/28/23 07/31/23 Alfonso Renteria MD 5775 [facility] 200 [place] [address] Assigned Neuroscience Provider 04/02/23 Cheng Todd PA-C [address] [place] [address] Assigned PCP 04/30/23 07/15/23 Radha Lomeli APRN MARKETING TECHNOLOGY SPECIALIST [address] [place] 1397800 [place] [address] Assigned Heart and Vascular Provider 05/28/23 Jelena David OD [address] [facility] [place] [address] Ophthalmology 06/15/23 Pao Joseph, VJ Personal Advocate & Liaison (PAL) Nurse 08/01/23 11/07/23 Esha Grimm PA-C [address] [place] [phone] Assigned PCP 07/16/23 Valery Veronica PA-C 909 [place] [address] Physician Drawbench Operator Dermatology 09/19/23 Rey Tay MD [address] [place] [address] Gastroenterology 09/20/23 Rocky Zepeda DO [address] [place] [address] Physician Gastroenterology 09/20/23 Philip Dumont MD [address] [place] [address] Physician Ophthalmology 09/22/23 Meredith Carrera PA-C [address] [place] [address] Assigned Gastroenterology Provider 11/01/23 Neil Kent MD [address] [place] [address] Dermatology 11/02/23 [place] [address] [place] [address] Neurological Surgery 12/26/23 documented as of this encounter
--- OUTSIDE RECORDS SUMMARY | 2024-02-12 05:47 | XMS_ITS | Encounter Summary ---
Author Organization [place] Address [address] [place] [address] Care Team Providers Care Executive Advisor Name Role Phone Thang Diana [place] [facility] Unavailable Rain Galaviz PA-C Unavailable [phone] Tavia Wyatt MD Unavailable Unavailable Erica Farrell ENGRAVER PICTURE DOBBY LOOM WEAVER Unavailable Rich Barrett MD Unavailable Neil Kent MD Unavailable Diana Desir Stanislav [facility] Unavailable [phone] Livan Sharif MD Unavailable Catherine Cm MD Unavailable + Valery Veronica PA-C Unavailable [phone] Brea Quinn ENGRAVER PICTURE DOBBY LOOM WEAVER Unavailable Brea Quinn ENGRAVER PICTURE DOBBY LOOM WEAVER Unavailable [phone] Jose Francisco Johnson MD Unavailable Alfonso Renteria MD Unavailable + [phone] Esha Grimm PA-C Primary Care Provider [phone] Radha Lomeli ENGRAVER PICTURE DOBBY LOOM WEAVER Unavailable [phone] Jelena David OD Unavailable Pao Joseph RN Unavailable Unavailable Esha Grimm Adam PA-C Unavailable [phone] Valery Veronica PA-C Unavailable [phone] Rey Tay MD Unavailable Rocky Zepeda DO Unavailable Philip Dumont MD Unavailable [phone] Meredith Carrera PA-C Unavailable [phone] Neil Kent MD Unavailable Juan Pablo Emmanuel MD Unavailable [phone] Encounter Details Date Type Department Care Team (Late st Contact Info) Description 08/25/2023 MyC Medical Advice [facility] Gastroenterology Clinic [address] [place] [address] Marija Polanco, VJ Social History [...] you attend chur ch or scientology services? 1 to 4 times [...] Answer Date Recorded PHQ-2 Score 0 06/20/2023 [facility] - Occupational Stress Questionnaire Answer [...] exercise at this level? 30 min 03/10/2023 [place] Depression Scale Answer Date Recorded [place] Depression Score 5 01/14/2021 Last EPDS Self [...] Description 02/14/2024 12:50 PM CDT Therapy Visit [facility] Rehabilitation Services [address] [address] Rustam Medina, PT [facility] [address] [place] [address] 03/06/2024 3:00 PM CDT Office Visit [facility] Heart Clinic [place] [address] [facility] [address] [place] [phone] Radha Lomeli, ENGRAVER PICTURE DOBBY LOOM WEAVER [address] [place] [address] 03/07/2024 9:00 AM CDT Hospital Encounter [facility] [address] [place] [address] SE 5th [place] [phone] Rocky Zepeda DO 500 [place] [address] 03/07/2024 9:00 AM CDT - 03/07/2024 9:30 AM CDT Surgery [address] 5th [place] [phone] Rocky Zepeda, DO 500 [place], [place] [address] Esophagoscopy, gastroscopy, duodenoscopy (EGD), combined 06/21/2024 2:00 PM DIVISION CHIEF Office Visit [facility] Neurology Clinics - [place] [address] [facility], [address] [place] [address] [place] [address] [place] [address] Johnny Penn MD [address] [place] [address] Scheduled Procedures Name Priority [...] Total Score: 4 06/20/20 23 8:40 AM DIVISION CHIEF documented as of this encounter Care Teams Executive Advisor Relationship Specialty Start Date End Date Esha Grimm PA-C [address] [place] [phone] PCP - General Family Medicine 05/04/23 Diana Desir [facility] [address] [place] [address] Pharmacist Pharmacist 04/17/21 Rain Galaviz PA-C [address] [place] [address] [address] [place] [address] Physician Armature [employer] Dermatology 04/28/21 Tavia Wyatt MD [address] [place] [address] DR [address], [place] [address] Dermatology 07/14/21 Erica Farrell APRN DOBBY LOOM WEAVER [address] [place] [address] Nurse Practitioner Cardiovascular Disease 09/09/21 Rich Barrett MD [address] [place] [address] 337355 Physician Ophthalmology 01/21/22 Neil Kent MD [address] [place] [address] 895815 Dermatology 02/24/22 Diana Desir, [facility] [address] [place] [address] 442686 Assigned [place] Pharmacist 04/07/22 Livan Sharif MD [address] [facility]00 [place] [address] Cardiovascular Disease 05/14/22 Catherine Cm MD [address] [facility]00 [place] 8[address] Cardiovascular Disease 07/21/22 Valery Veronica, PA-C [address] [place] [address]275 Physician Armature [employer] Dermatology 07/21/22 Brea Quinn APRN DOBBY LOOM WEAVER 500 [place], [place] 864155 Nurse Practitioner Dermatology 09/21/22 Brea Quinn APRN DOBBY LOOM WEAVER 6401 [place], [place] 504982 Assigned Surgical Provider 10/09/22 [place] [address] 504[address] Assigned Musculoskeletal Provider 10/09/22 Alfonso Renteria MD 5775 [facility] 200 [place], [place] 7847[address] Assigned Neuroscience Provider 04/02/23 Radha Lomeli APRN DOBBY LOOM WEAVER [address] 821045 Assigned Heart and Vascular Provider 05/28/23 Jelena David OD [address] [facility] [address] [place] [id number] Ophthalmology 06/15/23 Pao Joseph, VJ Personal Advocate & Liaison (PAL) Nurse 08/01/23 11/07/23 Esha Grimm PA-C [address] [place] [phone] Assigned PCP 07/16/23 Valery Veronica PA-C [address] [place] [address] Physician Armature [employer] Dermatology 09/19/23 Rey Tay MD [address] [place] [address] MD Gastroenterology 09/20/23 Rocky Zepeda DO [address] [place] [address] Physician Gastroenterology 09/20/23 Philip Dumont MD [address] [place] [address] Physician Ophthalmology 09/22/23 Meredith Carrera PA-C [address] [place] [address] Assigned Gastroenterology Provider 11/01/23 Neil Kent MD [address] [phone] Dermatology 11/02/23 [place] [address] [place] [place], [place] 234[address] Neurological Surgery 12/26/23 documented as of this encounter
--- OUTSIDE RECORDS SUMMARY | 2024-02-12 05:47 | XMS_ITS | Encounter Summary ---
Author Organization [place] Address [address] [place] [address] Care Team Providers Care Time Study Technologist Name Role Phone ThangKendrickDiana T [facility] Unavailable Rain Galaviz-C Unavailable Tavia Wyatt MD Unavailable Unavailable Erica Farrell REALTIME CAPTIONER GEAR FINISHER Unavailable Rich Barrett MD Unavailable Neil Kent MD Unavailable Diana Desir [facility] Unavailable Livan Sharif MD Unavailable Catherine Cm MD Unavailable + Valery Veronica-C Unavailable [phone] Brea Quinn REALTIME CAPTIONER GEAR FINISHER Unavailable [phone] Brea Quinn REALTIME CAPTIONER GEAR FINISHER Unavailable [phone] Jose Francisco Johnson MD Unavailable Sydnie Martinez RN Unavailable Unavailable Alfonso Renteria MD Unavailable + [phone] Esha Grimm PA-C Primary Care Provider [phone] Lomeli, Radha E REALTIME CAPTIONER GEAR FINISHER Unavailable [phone] Jelena David OD Unavailable Pao Joseph RN Unavailable Unavailable Esha Grimm Adam PA-C Unavailable [phone] JeremíasValery PA-C Unavailable [phone] Rey Tay MD Unavailable Rocky Zeepda DO Unavailable Philip Dumont MD Unavailable [phone] Meredith Carrera PA-C Unavailable [phone] Neil Kent MD Unavailable Juan Pablo Emmanuel MD Unavailable [phone] Encounter Details Date Type Department Care Team (Late st Contact Info) Description 07/29/2023 MyC Medical Advice [address] [address] Pao Joseph, RN Social History [...] Answer Date Recorded PHQ-2 Score 0 06/20/2023 [facility] - Occupational Stress Questionnaire Answer Date [...] exercise at this level? 30 min 03/10/2023 [place] Depression Scale Answer Date Recorded [place] Depression Score 5 01/14/2021 Last EPDS [...] Description 02/14/2024 12:50 PM CDT Therapy Visit [facility] [address] [address] Rustam Medina, PT [facility] [id number] [place] [address] 03/06/2024 3:00 PM CDT Office Visit [facility] [place] [address] [facility] [address] [place] [address] Radha Lomeli, REALTIME CAPTIONER GEAR FINISHER [address] [place] [address] 03/07/2024 9:00 AM CDT Hospital Encounter [facility] [address] 5th [place] [phone] Rocky Zepeda DO 500 [place] [address] 03/07/2024 9:00 AM CDT - 03/07/2024 9:30 AM CDT Surgery [place] [address] 5th [place] [address] Rocky Zepeda, DO 500 [place], [place] [address]255 Esophagoscopy, gastroscopy, duodenoscopy (EGD), combined 06/21/2024 2:00 PM JOURNAL BOX INSPECTOR Office Visit [facility] - [place] [address] [facility], [address] [place] [address] [place] [address] [place] [address] Johnny Penn MD [address] [place] [address] Scheduled Procedures Name Priority Associated Diagnoses Date/Ti vt ESOPHAGOGASTRODUODENOSCOPY Eosinophilic esophagitis Esophageal dysphagia 03/07/2024 9:00 AM CDT documented as of this encounter Visit Diagnoses Not on filedocumented in this encounter Additional Health Concerns Infection Onset Date Last Indicated Resolved Time Rule Out COVID-19 12/26/2023 12/26/2023 12/26/2023 9:50 AM CDT Assessment Noted Time PHQ-9 Depression Total Score: 4 06/20/20 23 8:40 AM JOURNAL BOX INSPECTOR documented as of this encounter Care Teams Time Study Technologist Relationship Specialty Start Date End Date Esha Grimm PA-C [address] [place] [address] PCP - General Family Medicine 05/04/23 Diana Desir [facility] [address] [place] [address] Pharmacist Pharmacist 04/17/21 Rain Galaviz PA-C [address] [place] [address] [address] [place] [address] Physician Steam Shovel Operating Engineer Dermatology 04/28/21 Tavia Wyatt MD [address] [place] [address] [address] [place], [place] [address] Dermatology 07/14/21 Erica Farrell APRN GEAR FINISHER [address] [place] [address] Nurse Practitioner Cardiovascular Disease 09/09/21 Rich Barrett MD [address] [place] [address] 451605 Physician Ophthalmology 01/21/22 Neil Kent MD [address] [place] [address] 787705 Dermatology 02/24/22 [facility] [address] [place] [address] Assigned [place] Pharmacist 04/07/22 Livan Sharif MD [address], [facility]00 [place] [id number] Cardiovascular Disease 05/14/22 Catherine Cm MD [address] [facility]00 [place] [id number] Cardiovascular Disease 07/21/22 Valery Veronica, PA-C [address] [place] [address] 202455 Physician Steam Shovel Operating Engineer Dermatology 07/21/22 Brea Quinn APRN GEAR FINISHER [address] [place], [place] 608525 Nurse Practitioner Dermatology 09/21/22 Brea Quinn APRN GEAR FINISHER 64[address] [place], [place] 776122 Assigned Surgical Provider 10/09/22 [place] [address] [place], [place] 232087 Assigned Musculoskeletal Provider 10/09/22 Sydnie Martinez RN Personal Advocate & Liaison (PAL) Family Medicine 03/28/23 07/31/23 Alfonso Renteria MD [address] [facility] [address] [place], [place] 817396 Assigned Neuroscience Provider 04/02/23 Radha Lomeli APRN GEAR FINISHER [address] [facility] [address] [place] [address] Assigned Heart and Vascular Provider 05/28/23 Jelena David OD [address] [facility] [address] Ophthalmology 06/15/23 Pao Joseph, VJ Personal Advocate & Liaison (PAL) Nurse 08/01/23 11/07/23 Esha Grimm PAUcheC [address] [place] [phone] Assigned PCP 07/16/23 Valery Veronica PA-C 9 [place] [address] Physician Steam Shovel Operating Engineer Dermatology 09/19/23 Rey Tay MD [address] [place] [address] MD Gastroenterology 09/20/23 Rocky Zepeda DO [address] [place] [address] Physician Gastroenterology 09/20/23 Philip Dumont MD [address] [place] [address] Physician Ophthalmology 09/22/23 Meredith Carrera PA-C [address] [place] [address] Assigned Gastroenterology Provider 11/01/23 Neil Kent MD [address] [address] Dermatology 11/02/23 [place] [address] [place] [address] Neurological Surgery 12/26/23 documented as of this encounter
--- OUTSIDE RECORDS SUMMARY | 2024-02-12 05:47 | XMS_ITS | Encounter Summary ---
Author Organization [place] Address [address] [place] [address] Care Team Providers Care Rodeo Rider Name Role Phone Thang Diana [place] [facility] Unavailable [phone] Rain Galaviz PA-C Unavailable Tavia Wyatt MD Unavailable Unavailable Erica Farrell MAITRE D' GRAIN COMBINE DRIVER Unavailable Rich Barrett MD Unavailable Neil Kent MD Unavailable Diana Desir Stanislav [facility] Unavailable [phone] Livan Sharif MD Unavailable Catherine Cm MD Unavailable + Valery Veronica PA-C Unavailable [phone] Brea Quinn MAITRE D' GRAIN COMBINE DRIVER Unavailable [phone] Brea Quinn MAITRE D' GRAIN COMBINE DRIVER Unavailable [phone] Jose Francisco Johnson MD Unavailable Alfonso Renteria MD Unavailable + [phone] Esha Grimm PA-C Primary Care Provider Radha Lomeli MAITRE D' GRAIN COMBINE DRIVER Unavailable [phone] Jelena David OD Unavailable Pao Joseph RN Unavailable Unavailable Esha GrimmC Unavailable [phone] Valery Veronica PA-C Unavailable [phone] Rey Tay MD Unavailable Rocky Zepeda DO Unavailable Philip Dumont MD Unavailable [phone] Meredith CarreraC Unavailable [phone] Neil Kent MD Unavailable Juan Pablo Emmanuel MD Unavailable [phone] Reason for Visit * Reason Onset Date Comments Call Back 08/01/2023 Encounter Details Date Type Department Care Team (Late st Contact Info) Description 08/01/2023 Telephone [facility] [address] [place] [address] Esha Grimm PA-C [address] [place] [address] Call Back Social History Tobacco [...] Answer Date Recorded PHQ-2 Score 0 06/20/2023 [facility] [...] exercise at this level? 30 min 03/10/2023 [place] Depression Scale Answer Date Recorded [place] Depression Score 5 01/14/2021 Last EPDS Self [...] Grimm PA-C on 08/02/2023 at 7:49 AM VE DIRECTORY SPECIALIST * Telephone Encounter - Debbie Shahid - [...] we [facility] you [facility] or would you prefer to receive a phone call?: No preference Okay to leave a detailed message?: Yes at Home number on file [phone] (home) VE DIRECTORY SPECIALIST documented in this encounter Plan of Treatment Upcoming Encounters Date Type Department Care Team (Latest Contact Info) Description 02/14/2024 12:50 PM CDT Therapy Visit [facility] [place] [address] [place] [phone] Rustam Medina, PT [facility] [id number] [place] [address] 03/06/2024 3:00 PM CDT Office Visit [facility] Heart [facility] [address] [facility] [address] [place] [address] Radha Lomeli APRN GRAIN COMBINE DRIVER [address] [facility] [address] [place], [place] [address] 03/07/2024 9:00 AM CDT Hospital Encounter [address] 5th [place] [phone] Rocky Zepeda DO 500 [place], [place] [address]23[address] 03/07/2024 9:00 AM CDT - 03/07/2024 9:30 AM CDT Surgery [address] 5th [place] [phone] Rocky Zepeda DO 500 [place], [place] 76[address] Esophagoscopy, gastroscopy, duodenoscopy (EGD), combined 06/21/2024 2:00 PM ACTIVE DIRECTORY SPECIALIST Office Visit [facility] Neurology [facility] [place] [address] [facility], [address] [place] [address] [place] [address] [place], [place] [phone] Johnny Penn MD [address] [place] [id number] Scheduled Procedures Name Priority Associated Diagnoses Date/Ti la ESOPHAGOGASTRODUODENOSCOPY Eosinophilic esophagitis Esophageal dysphagia 03/07/2024 9:00 AM CDT documented as of this encounter Visit Diagnoses Not on filedocumented in this encounter Additional Health Concerns Infection Onset Date Last Indicated Resolved Time Rule Out COVID-19 12/26/2023 12/26/2023 12/26/2023 9:50 AM CDT Assessment Noted Time PHQ-9 Depression Total Score: 4 06/20/20 23 8:40 AM ACTIVE DIRECTORY SPECIALIST documented as of this encounter Care Teams Rodeo Rider Relationship Specialty Start Date End Date Esha Grimm PA-C [address] [place] [address] PCP - General Family Medicine 05/04/23 Diana Desir, [facility] 3033 [place] [address] Pharmacist Pharmacist 04/17/21 Rain Galaviz PA-C [address] [place] [address] [address] [place] [address] Physician Stone Decorator Dermatology 04/28/21 Tavia Wyatt MD [address] [place] [address] [address] [place] [address] Dermatology 07/14/21 Erica Farrell APRN GRAIN COMBINE DRIVER [address] [place] [address] Nurse Practitioner Cardiovascular Disease 09/09/21 Rich Barrett MD [address] [facility] 9[address] [place], [place] [address] Physician Ophthalmology 01/21/22 Neil Kent MD 500 [place], [place] 481445 Dermatology 02/24/22 Diana Desir, [facility] 3033 [place], [place] 633036 Assigned [place] Pharmacist 04/07/22 Livan Sharif MD [address] [facility]00 [place] [address] Cardiovascular Disease 05/14/22 Catherine Cm MD [address] [place] [address]69300 [place], [place] 332695 Cardiovascular Disease 07/21/22 Valery Veronica, PA-C 9 [place], [place] 828515 Physician Stone Decorator Dermatology 07/21/22 Brea Quinn APRN GRAIN COMBINE DRIVER [address] [place], [place] 430845 Nurse Practitioner Dermatology 09/21/22 Brea Quinn APRN GRAIN COMBINE DRIVER 64[address] [facility] 274242 Assigned Surgical Provider 10/09/22 [place] [address] [place] [address] Assigned Musculoskeletal Provider 10/09/22 Alfonso Renteria MD [address] [place], [place] 776416 Assigned Neuroscience Provider 04/02/23 Radha Lomeli APRN GRAIN COMBINE DRIVER [address] [facility] [address] [place] 547405 Assigned Heart and Vascular Provider 05/28/23 Jelena David OD [address] [facility] [address] [place] [phone] Ophthalmology 06/15/23 Pao Joseph, VJ Personal Advocate & Liaison (PAL) Nurse 08/01/23 11/07/23 Esha Grimm PA-C [address] [place] [address] Assigned PCP 07/16/23 Valery Veronica PA-C [address] [place] [address] 262515 Physician Stone Decorator Dermatology 09/19/23 Rey Tay MD [address] [place] [address] [id number] Gastroenterology 09/20/23 Rocky Zepeda DO [address] [place] [address] 73119455 Physician Gastroenterology 09/20/23 Philip Dumont MD 516 [place], [place] 7[address]195 Physician Ophthalmology 09/22/23 Meredith Carrera PA-C 9 [place], [place] 479845 Assigned Gastroenterology Provider 11/01/23 Neil Kent MD [address] [address] Dermatology 11/02/23 [place] [address] [place] [address] Neurological Surgery 12/26/23 documented as of this encounter
--- OUTSIDE RECORDS SUMMARY | 2024-02-12 05:47 | XMS_ITS | Encounter Summary ---
Author Organization [place] Address [address] [place] [address] Care Team Providers Care Inspector Assembly Name Role Phone Thang Diana [place] [facility] Unavailable Rain Galaviz PA-C Unavailable [phone] Tavia Wyatt MD Unavailable Unavailable Erica Farrell PERSONAL FINANCIAL REPRESENTATIVE SUPERINTENDENT CONCRETE MIXING PLANT Unavailable Rich Barrett MD Unavailable Neil Kent MD Unavailable Diana Desir Stanislav [facility] Unavailable [phone] Livan Sharif MD Unavailable Catherine Cm MD Unavailable + Valery Veronica PA-C Unavailable [phone] Brea Quinn PERSONAL FINANCIAL REPRESENTATIVE SUPERINTENDENT CONCRETE MIXING PLANT Unavailable Brea Quinn PERSONAL FINANCIAL REPRESENTATIVE SUPERINTENDENT CONCRETE MIXING PLANT Unavailable [phone] Jose Francisco Johnson MD Unavailable Alfonso Renteria MD Unavailable + [phone] Esha Grimm PA-C Primary Care Provider Radha Lomeli PERSONAL FINANCIAL REPRESENTATIVE SUPERINTENDENT CONCRETE MIXING PLANT Unavailable [phone] Jelena David OD Unavailable Pao Joseph RN Unavailable Unavailable Esha Grimm Adam PA-C Unavailable [phone] Valery Veronica PA-C Unavailable [phone] Rey Tay MD Unavailable Rocky Zepeda DO Unavailable Philip Dumont MD Unavailable [phone] Meredith Carrera PA-C Unavailable [phone] Neil Kent MD Unavailable Juan Pablo Emmanuel MD Unavailable [phone] Encounter Details Date Type Department Care Team (Late st Contact Info) Description 08/11/2023 MyC Medical Advice [address] [address] Pao Joseph, RN Social History [...] Answer Date Recorded PHQ-2 Score 0 06/20/2023 [facility] - Occupational Stress Questionnaire Answer [...] exercise at this level? 30 min 03/10/2023 [place] Depression Scale Answer Date Recorded [place] Depression Score 5 01/14/2021 Last EPDS Self [...] 12:50 PM CDT Therapy Visit [facility] [address] [address] Rustam Medina, PT [facility] [address] [place] [address] 03/06/2024 3:00 PM CDT Office Visit [facility] [place] [address] [place] [address] [address] [place] [address] Radha Lomeli, PERSONAL FINANCIAL REPRESENTATIVE SUPERINTENDENT CONCRETE MIXING PLANT [address] [place] [address] 03/07/2024 9:00 AM CDT Hospital Encounter [address]th [place] [address] Rocky Zepeda DO 500 [place] [address] 03/07/2024 9:00 AM CDT - 03/07/2024 9:30 AM CDT Surgery [address] 5th [place] [address] Rocky Zepeda, DO 500 [place], [place] 460205 Esophagoscopy, gastroscopy, duodenoscopy (EGD), combined 06/21/2024 2:00 PM SENIOR SOFTWARE DEVELOPMENT MANAGER Office Visit [facility] [place] [address] [facility], [address] [place] [address] [place] [address] [address] Johnny Penn MD [address] [place] [address] Scheduled Procedures Name Priority Associated [...] Score: 4 06/20/20 23 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 SOFTWARE DEVELOPMENT MANAGER documented as of this encounter Care Teams Inspector Assembly Relationship Specialty Start Date End Date Esha Grimm PA-C [address] [place] [address] PCP - General Family Medicine 05/04/23 Diana Desir, [facility] 3033 [place] [address] Pharmacist Pharmacist 04/17/21 Rain Galaviz PA-C [address] [place] [address] [address] [place] [address] Physician Hand Plug Shaper Dermatology 04/28/21 Tavia Wyatt MD [address] [place] [address] [place] [address] Dermatology 07/14/21 Erica Farrell APRN SUPERINTENDENT CONCRETE MIXING PLANT [address] [place] [address] Nurse Practitioner Cardiovascular Disease 09/09/21 Rich Barrett MD [address] [place] [address] 452045 Physician Ophthalmology 01/21/22 Neil Kent MD [address] [place] [address] 433575 Dermatology 02/24/22 Diana Desir, [facility] [address] [place] [address]596 Assigned [place] Pharmacist 04/07/22 Livan Sharif MD [address] [facility] [place] [address] Cardiovascular Disease 05/14/22 Catherine Cm MD [address] [facility] [place] 739405 Cardiovascular Disease 07/21/22 Valery Veronica, PA-C [address] [place] [address] Physician Hand Plug Shaper Dermatology 07/21/22 Brea Quinn APRN SUPERINTENDENT CONCRETE MIXING PLANT 500 [place], [place] 051285 Nurse Practitioner Dermatology 09/21/22 Brea Quinn APRN SUPERINTENDENT CONCRETE MIXING PLANT 6401 [place], [place] 964312 Assigned Surgical Provider 10/09/22 [place] [address] 768[address] Assigned Musculoskeletal Provider 10/09/22 Alfonso Renteria MD 5775 [facility] 200 [place], [place] 9[address]196 Assigned Neuroscience Provider 04/02/23 Radha Lomeli APRN SUPERINTENDENT CONCRETE MIXING PLANT [address] 427465 Assigned Heart and Vascular Provider 05/28/23 Jelena David OD [address] [facility] [address] [place] [id number] Ophthalmology 06/15/23 Pao Joseph, RN Personal Advocate & Liaison (PAL) Nurse 08/01/23 11/07/23 Esha Grimm PA-C [address] [place] [address] Assigned PCP 07/16/23 Valery Veronica PA-C [address] [place] [address] Physician Hand Plug Shaper Dermatology 09/19/23 Rey Tay MD [address] [place] [address] MD Gastroenterology 09/20/23 Rocky Zepeda DO [address] [place] [address] Physician Gastroenterology 09/20/23 Philip Dumont MD [address] [place] [address] Physician Ophthalmology 09/22/23 Meredith Carrera PA-C [address] [place] [address] Assigned Gastroenterology Provider 11/01/23 Neil Kent MD [address] [address] Dermatology 11/02/23 [place] [address] [place] [address] Neurological Surgery 12/26/23 documented as of this encounter
--- OUTSIDE RECORDS SUMMARY | 2024-02-12 05:48 | XMS_ITS | Encounter Summary ---
Author Organization [facility] Address [address] [place] [address] Care Team Providers Care Publishing Specialist Name Role Phone Lita Oseguera Unavailable Unavailable Marija Edgar APRN CHAIN MAKER Primary Care Provider U Marija Bella APRN CHAIN MAKER Unavailable Unavail able Keisha Dotson MD Unavailable [phone] Diana Desir [facility] Unavailable [phone] Rain Galaviz PA-C Unavailable [phone] Tavia Wyatt MD Unavailable Unavailable Erica Farrell APRN CHAIN MAKER Unavailable Rich Barrett MD Unavailable [phone] Neil Kent MD Unavailable Diana Desir [facility] Unavailable [phone] Livan Sharif MD Unavailable Catherine Cm MD Unavailable + Valery Veronica PA-C Unavailable [phone] Catherine Cm MD Unavailable + Brea Quinn APRN CHAIN MAKER Unavailable [phone] Brea Quinn APRN CHAIN MAKER Unavailable [phone] Jose Francisco Johnson MD Unavailable Livan Sharif MD Unavailable Catherine Cm MD Unavailable + Sydnie Martinez RN Unavailable Unavailable Alfonso Renteria MD Unavailable [phone] Esha Grimm PA-C Primary Care Provider Cheng Todd PA-C Unavailable Radha Lomeli APRN CHAIN MAKER Unavailable Jelena David OD Unavailable [phone] Pao Joseph RN Unavailable Unavailable Esha Grmim PA-C Unavailable [phone] Valery Veronica PA-C Unavailable [phone] Rey Tay MD Unavailable Rocky Zepeda DO Unavailable Philip Dumont MD Unavailable Meredith Carrera PA-C Unavailable [phone] Neil Kent MD Unavailable Juan Pablo Emmanuel MD Unavailable Reason for Visit * Reason Onset Date Comments MyChart Communication 10/27/2022 Encounter Details Date Type Department Care Team (Late st Contact Info) Description 10/27/2022 MyC Medical Advice [facility] [address] [place] [address] Brea Quinn, POWDER MONKEY CHAIN MAKER [address] [place] [address] MyChart Communication (/) Social History [...] How often do you attend episcopal or islam serv ices? Never 09/22/2021 Do you belong [...] Answer Date Recorded PHQ-2 Score 1 10/11/2022 [facility] of Occupat ional Health - Occupational Stress [...] in a longterm (including now)? No 09/22/2021 [place] Depression Scale Answer Date Recorded [place] Depression Score 5 01/14/2021 Last EPDS Self [...] and advise. Letha Driver RN eal Dermatology Welcome [phone] documented in this encounter Plan of Treatment Upcoming Encounters Date Type Department Care Team (Latest Contact Info) Description 02/14/2024 12:50 PM CDT Therapy Visit [address] [address] Rustam Medina, [facility] [address] [place] [address] 03/06/2024 3:00 PM CDT Office [facility] [place] [address] [facility] [address] [place] [address] Radha Lomeli, POWDER MONKEY CHAIN MAKER [address] [place] [address] 03/07/2024 9:00 AM CDT Hospital Encounter [address] [phone] Rocky Zepeda DO 500 [place], [place] [address] 03/07/2024 9:00 AM CDT - 03/07/2024 9:30 AM CDT Surgery [address] [phone] Rocky Zepeda DO 500 [place], [place] [address] Esophagoscopy, gastroscopy, duodenoscopy (EGD), combined 06/21/2024 2:00 PM TENNIS BALL COVERER HAND Office [facility] Neurology [facility] [address] [facility], [address] [place] [address] [place] [address] [place] [address] Johnny Penn MD [address] [place] [address] Scheduled Procedures Name Priority Associated [...] documented as of this encounter Care Teams Publishing Specialist Relationship Specialty Start Date End Date Marija Edgar APRN CHAIN MAKER PCP - General Nurse Practitioner 04/30/20 04/14/23 Esha Grimm PA-C [address] [place] [address] PCP - General Family Medicine 05/04/23 Lita Oseguera Personal Advocate & Liaison (PAL) 02/28/20 03/27/23 Marija Edgar APRN CHAIN MAKER Assigned PCP 06/08/20 04/29/23 Keisha Dotson MD [address]09 [place] [address] Assigned Neuroscience Provider 06/04/20 04/01/23 Diana Desir, [facility] [address] [place] [address] Pharmacist Pharmacist 04/17/21 Rain Galaviz PA-C [address] [place] [address] [address] [place] [address] Physician Dish Cloth Inspector Dermatology 04/28/21 Tavia Wyatt MD [address] [place] [address] DR [facility] [address] Dermatology 07/14/21 Erica Farrell APRN CHAIN MAKER [address] [place] [address] Nurse Practitioner Cardiovascular Disease 09/09/21 Rich Barrett MD [address] [address] Physician Ophthalmology 01/21/22 Neil Kent MD 500 [place] [address] Dermatology 02/24/22 Diana Desir, [facility] [address] [place] [address] Assigned MTM Pharmacist 04/07/22 Livan Sharif MD [address] [place] [address] Cardiovascular Disease 05/14/22 Catherine Cm MD [address] [place] [address] Cardiovascular Disease 07/21/22 Valery Veronica, PA-C [address] [place] [address] Physician Dish Cloth Inspector Dermatology 07/21/22 Catherine Cm MD [address] [place] [address] Assigned Heart and Vascular Provider 07/24/22 11/05/22 Brea Quinn APRN CHAIN MAKER [address] [place] [address] 765185 Nurse Practitioner Dermatology 09/21/22 Brea Quinn APRN CHAIN MAKER [address] [place] [address] 318222 Assigned Surgical Provider 10/09/22 [place] [address] [place] [address], [place] [address] Assigned Musculoskeletal Provider 10/09/22 Livan Sharif MD [address], [address] [place] [address] Assigned Heart and Vascular Provider 11/06/22 11/12/22 Catherine Cm MD [address] [place] 36[address] Assigned Heart and Vascular Provider 11/13/22 05/27/23 Sydnie Martinez RN Personal Advocate & Liaison (PAL) Family Medicine 03/28/23 07/31/23 Alfonso Renteria MD [address] [facility] 200 [place] [address] Assigned Neuroscience Provider 04/02/23 Cheng Todd PA-C [address] [place] [address] [phone] Assigned PCP 04/30/23 07/15/23 Radha Lomeli APRN CHAIN MAKER [address] [place] [address] Assigned Heart and Vascular Provider 05/28/23 Jelena David OD [address] [place] [address] Ophthalmology 06/15/23 Pao Joseph RN Personal Advocate & Liaison (PAL) Nurse 08/01/23 11/07/23 Esha Grimm PA-C [address] [place] [phone] Assigned PCP 07/16/23 Valery Veronica PA-C [address]09 [place] [address] Physician Dish Cloth Inspector Dermatology 09/19/23 Rey Tay MD [address] [place] [address] Gastroenterology 09/20/23 Rocky Zepeda DO [address] [place] [address] Physician Gastroenterology 09/20/23 Philip Dumont MD [address] [place] [address] Physician Ophthalmology 09/22/23 Meredith Carrera PA-C [address] [place] [address] Assigned Gastroenterology Provider 11/01/23 Neil Kent MD [address] [place] [address] Dermatology 11/02/23 [place] [address] [place] [address] Neurological Surgery 12/26/23 documented as of this encounter
--- OUTSIDE RECORDS SUMMARY | 2024-02-12 05:48 | XMS_ITS | Encounter Summary ---
Author Organization [facility] Address [address] [place] [address] Care Team Providers Care Forest Resources Professor Name Role Phone ThangKendrickDiana T [facility] Unavailable [phone] Rain Galaviz-C Unavailable [phone] Tavia Wyatt MD Unavailable Unavailable Erica Farrell APRN DIABETES PHYSICIAN Unavailable Rich Barrett MD Unavailable Neil Kent MD Unavailable Diana Desir [facility] Unavailable Livan Sharif MD Unavailable Catherine Cm MD Unavailable + Valery Veronica-C Unavailable [phone] Brea Quinn ARTIFICIAL PLASTIC EYE MAKER DIABETES PHYSICIAN Unavailable Brea Quinn ARTIFICIAL PLASTIC EYE MAKER DIABETES PHYSICIAN Unavailable Jose Francisco Johnson MD Unavailable Sydnie Martinez RN Unavailable Unavailable Alfonso Renteria MD Unavailable + [phone] Esha Grimm PA-C Primary Care Provider [phone] Cheng Todd PA-C Unavailable Radha Lomeli APRN DIABETES PHYSICIAN Unavailable [phone] Jelena David OD Unavailable Pao Joseph RN Unavailable Unavailable Esha Grimm Adam PA-C Unavailable [phone] Valery Veronica PA-C Unavailable [phone] Rey Tay MD Unavailable Rocky Zepeda DO Unavailable Philip Dumont MD Unavailable [phone] Meredith Carrera PA-C Unavailable [phone] Neil Kent MD Unavailable Juan Pablo Emmanuel MD Unavailable [phone] Encounter Details Date Type Department Care Team (Late st Contact Info) Description 06/15/2023 MyC Medical Advice [facility] [address] [place] [address] Doris Levi Social History Tobacco [...] do you attend chur or moravian services? 1 to 4 times [...] Answer Date Recorded PHQ-2 Score 1 05/16/2023 [facility] - [facility]ational Stress [...] exercise at this level? 30 min 03/10/2023 [place] Depression Scale Answer Date Recorded [place] Depression Score 5 01/14/2021 Last EPDS Self [...] an overnight group home, or couch-surfing.) Yes 04/18/2023 Are you worried [...] Description 02/14/2024 12:50 PM CDT Therapy Visit [facility] [address] [address] Rustam Medina, PT [facility] [address] [place] [address] 03/06/2024 3:00 PM CDT Office Visit [facility] [place] [address] [facility] [address] [place] [address] Radha Lomeli APRN DIABETES PHYSICIAN [address] [place] [address] 03/07/2024 9:00 AM CDT Hospital Encounter [address] [place] [address] Rocky Zepeda, 500 [place], [place] [address] 03/07/2024 9:00 AM CDT - 03/07/2024 9:30 AM CDT Surgery [facility] [address] [facility] [address] 5th [place] [phone] Rocky Zepeda DO 500 [place] [address] Esophagoscopy, gastroscopy, duodenoscopy (EGD), combined 06/21/2024 2:00 PM QUALITY IMPROVEMENT COORDINATOR (RN) Office Visit [facility] [place] [address] [place] [address], [address] [place] [address] [place] [address] [place], [place] [address] Johnny Penn MD [address] [place], [place] [address] Scheduled Procedures Name Priority Associated Diagnoses Date/Ti il ESOPHAGOGASTRODUODENOSCOPY Eosinophilic esophagitis Esophageal dysphagia 03/07/2024 9:00 AM CDT documented as of this encounter Visit Diagnoses Not on filedocumented in this encounter Additional Health Concerns Infection Onset Date Last Indicated Resolved Time Rule Out COVID-19 12/26/2023 12/26/2023 12/26/2023 9:50 AM CDT Assessment Noted Time PHQ-9 Depression Total Score: 6 05/16/20 23 9:29 AM QUALITY IMPROVEMENT COORDINATOR (RN) documented as of this encounter Care Teams Forest Resources Professor Relationship Specialty Start Date End Date Esha Grimm PA-C [address] [place] [address] PCP - General Family Medicine 05/04/23 Diana Desir, [facility] [address] [place] [address] Pharmacist Pharmacist 04/17/21 Rain Galaviz PA-C [address] [place] [address] [address] [place] [address] Physician Panama Hat Blocker Dermatology 04/28/21 Tavia Wyatt MD [address] [place] [address] [address] [place] [address] Dermatology 07/14/21 Erica Farrell APRN DIABETES PHYSICIAN [address] [place], [place] [address] Nurse Practitioner Cardiovascular Disease 09/09/21 Rich Barrett MD [address] [place] [address] [address] [place], [place] [address] Physician Ophthalmology 01/21/22 Neil Kent MD 500 [place] [address] Dermatology 02/24/22 Diana Desir, [facility] [address] [place] [address] Assigned MTM Pharmacist 04/07/22 Livan Sharif MD [address], [facility] [address] [place] [address] Cardiovascular Disease 05/14/22 Catherine Cm MD [address] [place] [address] Cardiovascular Disease 07/21/22 Valery Veronica PA-C 909 [place] [address] Physician Panama Hat Blocker Dermatology 07/21/22 Brea Quinn APRN DIABETES PHYSICIAN [address] [place] [address] Nurse Practitioner Dermatology 09/21/22 Brea Quinn APRN DIABETES PHYSICIAN [address] [place] [address] Assigned Surgical Provider 10/09/22 [place] [address] [facility] 300 [place] [address] Assigned Musculoskeletal Provider 10/09/22 Sydnie Martinez RN Personal Advocate & Liaison (PAL) Family Medicine 03/28/23 07/31/23 Alfonso Renteria MD 5775 [facility] 200 [place] [address] Assigned Neuroscience Provider 04/02/23 Cheng Todd PA-C [address] [place] [address] [id number] Assigned PCP 04/30/23 07/15/23 Radha Lomeli APRN DIABETES PHYSICIAN [address] [facility] [address] [place] [address] Assigned Heart and Vascular Provider 05/28/23 Jelena David OD [address] [place] [address] MD Ophthalmology 06/15/23 Pao Joseph, RN Personal Advocate & Liaison (PAL) Nurse 08/01/23 11/07/23 Esha Grimm PA-C [address] [place] [address] Assigned PCP 07/16/23 Valery Veronica PA-C [address] [place] [address] Physician Panama Hat Blocker Dermatology 09/19/23 Rey Tay MD [address] [place] [address] 909865 MD Gastroenterology 09/20/23 Rocky Zepeda DO [address] [place] [address] 243725 Physician Gastroenterology 09/20/23 Philip Dumont MD [address] [place] [address] Physician Ophthalmology 09/22/23 Meredith Carrera PA-C [address] [place] [address] 901065 Assigned Gastroenterology Provider 11/01/23 Neil Kent MD [address] [address] Dermatology 11/02/23 [place] [address] [place] [address] Neurological Surgery 12/26/23 documented as of this encounter
--- OUTSIDE RECORDS SUMMARY | 2024-02-12 05:48 | XMS_ITS | Encounter Summary ---
Author Organization [employer] Address [address] [place] [address] Care Team Providers Care Superintendent Name Role Phone Lita Oseguera Unavailable Unavailable Marija Edgar APRN, CNP Primary Care Provider U Marija Bella APRN, CNP Unavailable Unavail able Keisha Dotson MD Unavailable [phone] Diana Desir [facility] Unavailable [phone] Rain Galaviz PA-C Unavailable Tavia Wyatt MD Unavailable Unavailable Erica Farrell APRN ARTS AND SCIENCES DEAN Unavailable Rich Barrett MD Unavailable [phone] Neil Kent MD Unavailable Diana Desir [facility] Unavailable [phone] Livan Sharif MD Unavailable Catherine Cm MD Unavailable + Valery Veronica PA-C Unavailable [phone] Brea Quinn APRN ARTS AND SCIENCES DEAN Unavailable [phone] Brea Quinn APRN ARTS AND SCIENCES DEAN Unavailable Jose Francisco Johnson MD Unavailable Catherine Cm MD Unavailable + Sydnie Martinez RN Unavailable Unavailable Alfonso Renteria MD Unavailable [phone] Esha Grimm PA-C Primary Care Provider Perez Chengjc Fish PA-C Unavailable [phone] Armani Radha Sia [employer]ACOBS ARTS [employer] SCIENCES DEAN Unavailable Jelena David OD Unavailable Pao Joseph RN Unavailable Unavailable Esha Grimm PA-C Unavailable [phone] Valery Veronica PA-C Unavailable [phone] Rey Tay MD Unavailable Rocky Zepeda DO Unavailable Philip Dumont MD Unavailable Meredith Carrera PA-C Unavailable [phone] Neil Kent MD Unavailable Juan Pablo Emmanuel MD Unavailable Encounter Details Date Type Department Care Team (Late st Contact Info) Description 01/10/2023 MyC Medical Advice [facility] [address] [place] [address] Lauren Claudio PA-C [address] [place], [place] [phone] Social History Tobacco Use Types Packs/Day Years [...] How often do you attend jewish or congregation serv ices? Never 09/22/2021 Do you belong [...] PHQ-2 Score 1 10/11/2022 [facility] [place] of Occupat ional Health - Occupational Stress [...] a senior care (including now)? No 09/22/2021 [place] Depression Scale Answer Date Recorded [place] Depression Score 5 01/14/2021 Last EPDS Self [...] - 02/03/2023 11:52 AM CDT Incoming call Flight Dispatcher: Rosalva Smith [facility] referral following up on [facility] med information that is needed to be faxed at [phone] Erica David MA documented in this encounter Plan of Treatment Upcoming Encounters Date Type Department Care Team (Latest Contact Info) Description 02/14/2024 12:50 PM CDT Therapy Visit [address] [address] Rustam Medina, PT [facility] [address] [place] [address] 03/06/2024 3:00 PM CDT Office Visit [facility] [place] [address] [facility] [address] [place] [address] Radha Lomeli, TRANSFORMER ASSEMBLER ARTS AND SCIENCES DEAN [address] [facility] [address] [place] [address] 03/07/2024 9:00 AM CDT Hospital Encounter [facility] [address] [facility] [address] 5th [place] [phone] Rocky Zepeda DO 500 [place], [place] [address] 03/07/2024 9:00 AM CDT - 03/07/2024 9:30 AM CDT Surgery [facility] [address] [facility] [address] 5th [place] [address] Rocky Zepeda DO 500 [place], [place] 28[address] Esophagoscopy, gastroscopy, duodenoscopy (EGD), combined 06/21/2024 2:00 PM ASSEMBLER SURGICAL GARMENT Office Visit [facility] [place] [address] [facility], [address] [place] [address] [place] [address] [place], [place] [address] Johnny Penn MD [address] [place] [address] Scheduled Procedures Name Priority Associated Diagnoses Date/Ti [...] documented as of this encounter Care Teams Superintendent Relationship Specialty Start Date End Date Marija Edgar APRN ARTS AND SCIENCES DEAN PCP - General Nurse Practitioner 04/30/20 04/14/23 Esha Grimm PA-C [address] [place] [phone] PCP - General Family Medicine 05/04/23 Lita Oseguera Personal Advocate & Liaison (PAL) 02/28/20 03/27/23 Marija Edgar APRN ARTS AND SCIENCES DEAN Assigned PCP 06/08/20 04/29/23 Keisha Dotson MD [address] [place] [address] Assigned Neuroscience Provider 06/04/20 04/01/23 Diana Desir, [facility] [address] [place] [address] Pharmacist Pharmacist 04/17/21 Rain Galaviz PA-C [address] [place] [address] [address] [facility] [address] Physician Magistrate Judge Dermatology 04/28/21 Tavia Wyatt MD [address] [place] [address] [place] [address] Dermatology 07/14/21 Erica Farrell APRN ARTS AND SCIENCES DEAN [address] [place] [address] Nurse Practitioner Cardiovascular Disease 09/09/21 Rich Barrett MD [address] [address] Physician Ophthalmology 01/21/22 Neil Kent MD [address] [place] [address] Dermatology 02/24/22 Diana Desir, [facility] [address] [place] [address] Assigned MTM Pharmacist 04/07/22 Livan Sharif MD [address], [facility] [address] [place] [address] Cardiovascular Disease 05/14/22 Catherine Cm MD [address] [facility] [address] [place] [address] Cardiovascular Disease 07/21/22 Valery Veronica, PA-C [address] [place] [address] Physician Magistrate Judge Dermatology 07/21/22 Brea Quinn APRN ARTS AND SCIENCES DEAN 500 [place] [address] Nurse Practitioner Dermatology 09/21/22 Brea Quinn APRN ARTS AND SCIENCES DEAN [address] [place] [address] Assigned Surgical Provider 10/09/22 [place] [address] [address] Assigned Musculoskeletal Provider 10/09/22 Catherine Cm MD [address] [facility] [address] [place] [address] Assigned Heart and Vascular Provider 11/13/22 05/27/23 Sydnie Martinez RN Personal Advocate & Liaison (PAL) Family Medicine 03/28/23 07/31/23 Alfonso Renteria MD [address] [facility] 200 [place] [address] Assigned Neuroscience Provider 04/02/23 Cheng Todd PA-C [address] [place] [address] Assigned PCP 04/30/23 07/15/23 Radha Lomeli APRN ARTS AND SCIENCES DEAN [address] [facility] [address] [place] [address] Assigned Heart and Vascular Provider 05/28/23 Jelena David OD [address] [facility] [place] [address] Ophthalmology 06/15/23 Pao Joseph RN Personal Advocate & Liaison (PAL) Nurse 08/01/23 11/07/23 Esha Grimm PA-C [address] [place] [address] Assigned PCP 07/16/23 Valery Veronica PA-C [address] [place] [address] Physician Magistrate Judge Dermatology 09/19/23 Rey Tay MD [address] [place] [address] 817655 Gastroenterology 09/20/23 Rocky Zepeda DO [address] [place] [address] 042585 Physician Gastroenterology 09/20/23 Philip Dumont MD [address] [place], [place] [address] Physician Ophthalmology 09/22/23 Meredith Carrera PA-C [address] [place] [address] Assigned Gastroenterology Provider 11/01/23 Neil Kent MD [address] 9[address] Dermatology 11/02/23 [place] [address] [place] [address] Neurological Surgery 12/26/23 documented as of this encounter
--- OUTSIDE RECORDS SUMMARY | 2024-02-12 05:48 | XMS_ITS | Encounter Summary ---
Author Organization [address] Address [address] [place] [address] Care Team Providers Care Supervisor [employer] Name Role Phone Lita Oseguera Unavailable Unavailable Marija Edgar APRN, CNP Primary Care Provider U Marija Bella APRN, CNP Unavailable Unavail able Keisha Dotson MD Unavailable [phone] Diana Desir [facility] Unavailable [phone] Rain Galaviz PA-C Unavailable Tavia Wyatt MD Unavailable Unavailable Erica Farrell APRN BLOCK TESTER Unavailable Rich Barrett MD Unavailable [phone] Neil Kent MD Unavailable Diana Desir [facility] Unavailable [phone] Livan Sharif MD Unavailable Catherine Cm MD Unavailable + Valery Veronica PA-C Unavailable [phone] Brea Quinn APRN BLOCK TESTER Unavailable [phone] Brea Quinn MONOGRAM MAKER BLOCK TESTER Unavailable Jose Francisco Johnson MD Unavailable Livan Sharif MD Unavailable Catherine Cm MD Unavailable + Sydnie Martinez RN Unavailable Unavailable Alfonso Renteria MD Unavailable [phone] Esha Grimm PA-C Primary Care Provider Cheng Todd PA-C Unavailable Radha Lomeli APRN BLOCK TESTER Unavailable Jelena David OD Unavailable [phone] Pao Joseph RN Unavailable Unavailable Esha Grimm PA-C Unavailable [phone] Valery Veronica PA-C Unavailable Rey Tay MD Unavailable Rocky Zepeda DO Unavailable Philip Dumont MD Unavailable [phone] Meredith Carrera PA-C Unavailable [phone] Neil Kent MD Unavailable Juan Pablo Emmanuel MD Unavailable [phone] Encounter Details Date Type Department Care Team (Late st Contact Info) Description 11/10/2022 MyC Medical Advice [facility] [address] [place] [address] Lauren Claudio PA-C [address] [place] [address] Social History Tobacco Use Types [...] How often do you attend restoration or yazidism serv ices? Never 09/22/2021 Do [...] Answer Date Recorded PHQ-2 Score 1 10/11/2022 [facility] [place] of Occupat ional Health - Occupational Stress [...] in a fpc (including now)? No 09/22/2021 [place] Depression Scale Answer Date Recorded [place] Depression Score 5 01/14/2021 Last EPDS Self [...] 02/14/2024 12:50 PM CDT Therapy Visit [facility] [place] [address] [place] [phone] Rustam Medina, PT [facility] [address] [place] [address] 03/06/2024 3:00 PM CDT Office Visit [facility] [place] [address] [facility] [address] [place] [phone] Radha Lomeli, MONOGRAM MAKER BLOCK TESTER [address] [place] [address] 03/07/2024 9:00 AM CDT Hospital Encounter [address] 5th [place] [phone] Rocky Zepeda DO 500 [place], [place] 626875 03/07/2024 9:00 AM CDT - 03/07/2024 9:30 AM CDT Surgery [address] [phone] Rocky Zepeda DO 500 [place], [place] [phone] Esophagoscopy, gastroscopy, duodenoscopy (EGD), combined 06/21/2024 2:00 PM POT LINING SUPERVISOR Office Visit [facility] [place] [address] [place] [address], [address] [place] [address] [place] [address] [facility] [place] [id number] Johnny Penn MD [address] [place] [address] Scheduled Procedures Name Priority Associated Diagnoses [...] as of this encounter Care Teams Supervisor [employer] Relationship Specialty Start Date End Date Marija Edgar APRN BLOCK TESTER PCP - General Nurse Practitioner 04/30/20 04/14/23 Esha Grimm PA-C [address] [place] [phone] PCP - General Family Medicine 05/04/23 Lita Oseguera Personal Advocate & Liaison (PAL) 02/28/20 03/27/23 Marija Edgar APRN BLOCK TESTER Assigned PCP 06/08/20 04/29/23 Keisha Dotson MD 909 [place], [place] 513685 Assigned Neuroscience Provider 06/04/20 04/01/23 Diana Desir [facility] 3033 [place], [place] [phone] Pharmacist Pharmacist 04/17/21 Rain Galaviz PA-C [address] [place] [address] [address] [place] [address] Physician Surgical Attendant Dermatology 04/28/21 Tavia Wyatt MD [address] [place] [address] [place]MA [place]SON [address] Dermatology 07/14/21 Erica Farrell APRN BLOCK TESTER [address] [place] [address] Nurse Practitioner Cardiovascular Disease 09/09/21 Rich Barrett MD [address] [place] [address] 538485 Physician Ophthalmology 01/21/22 Neil Kent MD [address] [place] [address] 130255 Dermatology 02/24/22 Diana Desir, [facility] [address] [place] [address] [phone] Assigned [place] Pharmacist 04/07/22 Livan Sharif MD [address], [facility]00 [place] [address] Cardiovascular Disease 05/14/22 Catherine Cm MD [address] [facility]00 [place] 038695 Cardiovascular Disease 07/21/22 Valery Veronica, PA-C [address] [place] [address] 106355 Physician Surgical Attendant Dermatology 07/21/22 Brea Quinn APRN BLOCK TESTER 500 [place], [place] 956915 Nurse Practitioner Dermatology 09/21/22 Brea Quinn APRN BLOCK TESTER 6401 [place], [place] 608962 Assigned Surgical Provider 10/09/22 [place] [address] [facility] 300 [place], [place] 620837 Assigned Musculoskeletal Provider 10/09/22 Livan Sharif MD [address] [email or web address] [address] [place], [place] 382205 Assigned Heart and Vascular Provider 11/06/22 11/12/22 Catherine Cm MD [address] [facility] [[email or web address] [address] [place] [address] Assigned Heart and Vascular Provider 11/13/22 05/27/23 Sydnie Martinez RN Personal Advocate & Liaison (PAL) Family Medicine 03/28/23 07/31/23 Alfonso Renteria MD 5775 [facility] 200 [place], [place] 446106 Assigned Neuroscience Provider 04/02/23 Cheng Todd PA-C [address] [place] [address] Assigned PCP 04/30/23 07/15/23 Radha Lomeli APRN BLOCK TESTER 6405 [facility] [address] [place], [place] 569145 Assigned Heart and Vascular Provider 05/28/23 Jelena David OD [address] [place] [address] MD Ophthalmology 06/15/23 Pao Joseph, VJ Personal Advocate & Liaison (PAL) Nurse 08/01/23 11/07/23 Esha Grimm PA-C [address] [place] [phone] Assigned PCP 07/16/23 Valery Veronica PA-C [address] [place] [address] 641565 Physician Surgical Attendant Dermatology 09/19/23 Rey Tay MD [address] [place] [address] 697575 Gastroenterology 09/20/23 Rocky Zepeda DO [address] [place] [address] 146585 Physician Gastroenterology 09/20/23 Philip Dumont MD [address] [place] [address] 014315 Physician Ophthalmology 09/22/23 Meredith Carrera PA-C [address] [place] [address] Assigned Gastroenterology Provider 11/01/23 Neil Kent MD [address] [place] [address] Dermatology 11/02/23 [place] [address] [place] [address] Neurological Surgery 12/26/23 documented as of this encounter
--- OUTSIDE RECORDS SUMMARY | 2024-02-12 05:48 | XMS_ITS | Encounter Summary ---
Author Organization [facility] Address [address] [place] [address] Care Team Providers Care Deep Sea Diver Name Role Phone Lita Oseguera Unavailable Unavailable Marija Edgar APRN, CNP Primary Care Provider U Marija Bella APRN, CNP Unavailable Unavail able Keisha Dotson MD Unavailable [phone] Diana eDsir [facility] Unavailable [phone] Rain Galaviz PA-C Unavailable Tavia Wyatt MD Unavailable Unavailable Erica Farrell APRN INDUSTRIAL SEWER Unavailable Rich Barrett MD Unavailable [phone] Neil Kent MD Unavailable Diana Desir [facility] Unavailable [phone] Livan Sharif MD Unavailable Catherine Cm MD Unavailable + Valery Veronica PA-C Unavailable [phone] Brea Quinn APRN INDUSTRIAL SEWER Unavailable [phone] Brea Quinn APRN INDUSTRIAL SEWER Unavailable Jose Francisco Johnson MD Unavailable Catherine Cm MD Unavailable + Sydnie Martinez RN Unavailable Unavailable Alfonso Renteria MD Unavailable [phone] Esha Grimm PA-C Primary Care Provider [phone] Perez Chengjc Fish PA-C Unavailable [phone] Radha Lomeli APRN INDUSTRIAL SEWER Unavailable Frankie Jelena Garcia OD Unavailable Pao Joseph RN Unavailable Unavailable Esha Grimm PA-C Unavailable [phone] Valery Veronica PA-C Unavailable Rey Tay MD Unavailable Rocky Zepeda DO Unavailable Philip Dumont MD Unavailable Meredith Carrera PA-C Unavailable [phone] Neil Kent MD Unavailable Juan Pablo Emmanuel MD Unavailable [phone] Encounter Details Date Type Department Care Team (Late st Contact Info) Description 01/28/2023 MyC Medical Advice [facility] [address] [place] [address] Margaret Rendon, RN Social History Tobacco Use [...] How often do you attend anabaptism or muslim serv ices? Never 09/22/2021 Do [...] Answer Date Recorded PHQ-2 Score 1 10/11/2022 [facility] [place] of Occupat ional Health - Occupational Stress [...] a senior living (including now)? No 09/22/2021 [place] Depression Scale Answer Date Recorded [place] Depression Score 5 01/14/2021 Last EPDS Self [...] Description 02/14/2024 12:50 PM CDT Therapy Visit [address] [address] Rustam Medina, PT [facility] [address] [place] [address] 03/06/2024 3:00 PM CDT Office Visit [facility] Heart [facility] [address] [facility] [address] [place] [phone] Radha Lomeli, PRODUCT SAFETY MANAGER INDUSTRIAL SEWER [address] [place], [place] [address] 03/07/2024 9:00 AM CDT Hospital Encounter [facility] [address] [place] [address] 5th [place] [address] Rocky Zepeda DO 500 [place], [place] 669875 03/07/2024 9:00 AM CDT - 03/07/2024 9:30 AM CDT Surgery [facility] [address] [place] [address] 5th [place] [phone] Rocky Zepeda DO 500 [place], [place] [phone] Esophagoscopy, gastroscopy, duodenoscopy (EGD), combined 06/21/2024 2:00 PM DIRECTOR Office Visit [facility] Neurology [facility] [address] [place] [address], [address] [place] [phone] [place] [address] [place], [place] [phone] Johnny Penn MD [address] [place] [place] 740425 Scheduled Procedures Name Priority Associated Diagnoses Date/Ti [...] documented as of this encounter Care Teams Deep Sea Diver Relationship Specialty Start Date End Date Marija Edgar APRN INDUSTRIAL SEWER PCP - General Nurse Practitioner 04/30/20 04/14/23 Esha Grimm PA-C [address] [place] [address] PCP - General Family Medicine 05/04/23 Lita Oseguera Personal Advocate & Liaison (PAL) 02/28/20 03/27/23 Marija Edgar APRN INDUSTRIAL SEWER Assigned PCP 06/08/20 04/29/23 Keisha Dotson MD 909 [place] [address] Assigned Neuroscience Provider 06/04/20 04/01/23 Diana Desir, [facility] [place] [address] Pharmacist Pharmacist 04/17/21 Rain Galaviz PA-C [address] [place] [address] [address] [place] [address] Physician Logging Supervisor Dermatology 04/28/21 Tavia Wyatt MD [address] [place] [address] [address] [facility] [address] Dermatology 07/14/21 Erica Farrell APRN INDUSTRIAL SEWER [address] [place] 848635 Nurse Practitioner Cardiovascular Disease 09/09/21 Rich Barrett MD 516 [facility] 9A [place], [place] [phone] Physician Ophthalmology 01/21/22 Neil Kent MD 500 [place] [address] Dermatology 02/24/22 Diana Desir, [facility] 3033 [place], [place] 576426 Assigned MTM Pharmacist 04/07/22 Livan Sharif MD [address] [place], [place] 476265 Cardiovascular Disease 05/14/22 Catherine Cm MD [address] [facility]00 [place], [place] 844225 Cardiovascular Disease 07/21/22 Valery Veronica, PA-C 909 [place], [place] 014005 Physician Logging Supervisor Dermatology 07/21/22 Brea Quinn APRN INDUSTRIAL SEWER 500 [place], [place] [phone] Nurse Practitioner Dermatology 09/21/22 Brea Quinn, PRODUCT SAFETY MANAGER INDUSTRIAL SEWER [address] [place] [address] Assigned Surgical Provider 10/09/22 [place] [address] [place] [address] Assigned Musculoskeletal Provider 10/09/22 Catherine Cm MD [address] [place] [address] Assigned Heart and Vascular Provider 11/13/22 05/27/23 Sydnie Martinez RN Personal Advocate & Liaison (PAL) Family Medicine 03/28/23 07/31/23 Alfonso Renteria MD 5775 [facility] 200 [place] [address] Assigned Neuroscience Provider 04/02/23 Cheng Todd PA-C [address] [place] [address] [phone] Assigned PCP 04/30/23 07/15/23 Radha Lomeli, ARLENE INDUSTRIAL SEWER [address] [facility] [address] [place] [address] Assigned Heart and Vascular Provider 05/28/23 Jelena David OD [address] [facility] [address] Ophthalmology 06/15/23 Pao Joseph, VJ Personal Advocate & Liaison (PAL) Nurse 08/01/23 11/07/23 Esha Grimm PA-C [address] [place] [address] Assigned PCP 07/16/23 Valery Veronica PA-C [address] [place] [address] Physician Logging Supervisor Dermatology 09/19/23 Rey Tay MD [address] [place] [address] 842165 MD Gastroenterology 09/20/23 Rocky Zepeda DO [address] [place] [address] 134095 Physician Gastroenterology 09/20/23 Philip Dumont MD [address] [place] [address] 816235 Physician Ophthalmology 09/22/23 Meredith Carrera PA-C [address] [place] [address] Assigned Gastroenterology Provider 11/01/23 Neil Kent MD [address] [address] Dermatology 11/02/23 [place] [address] [place] [address] Neurological Surgery 12/26/23 documented as of this encounter
--- OUTSIDE RECORDS SUMMARY | 2024-02-12 05:48 | XMS_ITS | Encounter Summary ---
Author Organization [facility] Address [address] [place] [address] Care Team Providers Care Apprentice Cosmetologist Name Role Phone Marija Edgar APRN PARTS SALVAGER Primary Care Provider Marija Emery APRN, CNP Unavailable Unavail able Keisha Dotson MD Unavailable [phone] Diana Desir [facility] Unavailable [phone] Rain Galaviz PA-C Unavailable Tavia Wyatt MD Unavailable Unavailable Erica Farrell APRN PARTS SALVAGER Unavailable Rich Barrett MD Unavailable [phone] Neil Kent MD Unavailable Diana Desir [facility] Unavailable [phone] Livan Sharif MD Unavailable Catherine Cm MD Unavailable + Valery Veronica PA-C Unavailable [phone] Brea Quinn APRN PARTS SALVAGER Unavailable [phone] Brea Quinn APRN PARTS SALVAGER Unavailable Jose Francisco Johnson MD Unavailable Catherine Cm MD Unavailable + Sydnie Martinez RN Unavailable Unavailable Alfonso Renteria MD Unavailable [phone] Esha Grimm PAUcheC Primary Care Provider Cheng Todd PA-C Unavailable Radha Lomeli APRN PARTS SALVAGER Unavailable [phone] Frankie Jelena Garcia OD Unavailable Pao Joseph RN Unavailable Unavailable Esha GrimmC Unavailable [phone] Valery Veronica PA-C Unavailable [phone] Rey Tay MD Unavailable Rocky Zepeda DO Unavailable Philip Dumont MD Unavailable [phone] Meredith Carrera PA-C Unavailable [phone] Neil Kent MD Unavailable Juan Pablo Emmanuel MD Unavailable [phone] Encounter Details Date Type Department Care Team (Late st Contact Info) Description 03/29/2023 [facility] Medical Advice [address] [address] Diana Desir, [facility] 3033 [place] [address] Social History Tobacco Use Types [...] you attend [facility] or moravian services? 1 to 4 [...] Answer Date Recorded PHQ-2 Score 0 03/10/2023 [facility] [place] of Occupat ional Health - Occupational Stress [...] in a long term (including now)? No 03/10/2023 [place] Depression Scale Answer Date Recorded [place] Depression Score 5 01/14/2021 Last EPDS Self [...] Description 02/14/2024 12:50 PM CDT Therapy Visit [place] [id number] [place] [address] Rustam Medina, PT [facility] [address] [place] [address] 03/06/2024 3:00 PM CDT Office Visit [facility] [place] [address] [facility] [address] [place] [phone] Radha Lomeli, RESOURCE PROTECTION SPECIALIST PARTS SALVAGER [address] [place] [address] 03/07/2024 9:00 AM CDT Hospital Encounter [facility] [address] [place] [address] 5th [place] [phone] Rocky Zepeda DO 500 [place], [place] [phone] 03/07/2024 9:00 AM CDT - 03/07/2024 9:30 AM CDT Surgery [facility] 909 [facility] 5th [place] [address] Rocky Zepeda DO 500 [place], [place] [phone] Esophagoscopy, gastroscopy, duodenoscopy (EGD), combined 06/21/2024 2:00 PM OPERATIONS EXPERT Office Visit [facility] Neurology Clinics [place] [address] [facility], [address] [place] [address] [place] [address] [place], [place] [phone] Johnny Penn MD [address] [place] [id number] Scheduled Procedures Name Priority Associated Diagnoses Date/Ti [...] documented as of this encounter Care Teams Apprentice Cosmetologist Relationship Specialty Start Date End Date Marija Edgar APRN PARTS SALVAGER PCP - General Nurse Practitioner 04/30/20 04/14/23 Esha Grimm PA-C [address] [place] [address] PCP - General Family Medicine 05/04/23 Marija Edgar APRN PARTS SALVAGER Assigned PCP 06/08/20 04/29/23 Keisha Dotson MD 909 [place], [place] 797075 Assigned Neuroscience Provider 06/04/20 04/01/23 Diana Desir, [facility] [address] [place] [address] Pharmacist Pharmacist 04/17/21 Rain Galaviz PA-C [address] [place] [address] [address] [place] [address] Physician Funeral Location Manager Dermatology 04/28/21 Tavia Wyatt MD [address] [place] [address] [address] [place] [address] Dermatology 07/14/21 Erica Farrell APRN PARTS SALVAGER [address] [place], [place] [address] Nurse Practitioner Cardiovascular Disease 09/09/21 Rich Barrett MD 516 [facility] [address]A [place], [place] 163735 Physician Ophthalmology 01/21/22 Neil Kent MD 500 [place], [place] [address]25 Dermatology 02/24/22 Diana Desir, [facility] 30[address] [place], [place] 442746 Assigned [facility] Pharmacist 04/07/22 Livan Sharif MD [address], [address] [place] [address] Cardiovascular Disease 05/14/22 Catherine Cm MD [address] [place] [address] Cardiovascular Disease 07/21/22 Valery Veronica, PA-C 909 [place], [place] 763495 Physician Funeral Location Manager Dermatology 07/21/22 Brea Quinn APRN PARTS SALVAGER 500 [place], [place] 497[address] Nurse Practitioner Dermatology 09/21/22 Brea Quinn APRN PARTS SALVAGER 6401 [facility] [place] [address] Assigned Surgical Provider 10/09/22 [place] [address] [place] [address] Assigned Musculoskeletal Provider 10/09/22 Catherine Cm MD [address] [facility] [address] [place] [address] Assigned Heart and Vascular Provider 11/13/22 05/27/23 Sydnie Martinez RN Personal Advocate & Liaison (PAL) Family Medicine 03/28/23 07/31/23 Alfonso Renteria MD 5775 [facility] 200 [place] [address] Assigned Neuroscience Provider 04/02/23 Cheng Todd PA-C [address] [place] [address] [id number] Assigned PCP 04/30/23 07/15/23 Radha Lomeli APRN PARTS SALVAGER 6405 [facility] [address] [place] [address] Assigned Heart and Vascular Provider 05/28/23 Jelena David OD [address] [facility] [address] Ophthalmology 06/15/23 Pao Joseph RN Personal Advocate & Liaison (PAL) Nurse 08/01/23 11/07/23 Esha Grimm PAUcheC [address] [place] [phone] Assigned PCP 07/16/23 Valery Veronica PA-C [address] [place] [address] Physician Funeral Location Manager Dermatology 09/19/23 Rey Tay MD [address] [place] [address] MD Gastroenterology 09/20/23 Rocky Zepeda DO [address] [place] [address] Physician Gastroenterology 09/20/23 Philip Dumont MD [address] [place] [address] Physician Ophthalmology 09/22/23 Meredith Carrera PA-C [address] [place] [address] Assigned Gastroenterology Provider 11/01/23 Neil Kent MD [address] [address] Dermatology 11/02/23 [place] [address] [place] [address] Neurological Surgery 12/26/23 documented as of this encounter
--- OUTSIDE RECORDS SUMMARY | 2024-02-12 05:48 | XMS_ITS | Encounter Summary ---
Author Organization [place] Address [address] [place] [address] Care Team Providers Care Online Health And Fitness Coach Name Role Phone Marija Edgar APRN HAND MOLDER AND CASTER Primary Care Provider Marija Emery APRN, CNP Unavailable Unavail able Diana Desir [facility] Unavailable [phone] Rain Galaviz PA-C Unavailable [phone] Tavia Wyatt MD Unavailable Unavailable Erica Farrell APRN HAND MOLDER AND CASTER Unavailable Rich Barrett MD Unavailable [phone] Neil Kent MD Unavailable Diana Desir [facility] Unavailable [phone] Livan Sharif MD Unavailable Catherine Cm MD Unavailable + Valery Veronica PA-C Unavailable [phone] Brea Quinn APRN HAND MOLDER AND CASTER Unavailable [phone] Brea Quinn APRN HAND MOLDER AND CASTER Unavailable [phone] Jose Francisco Johnson MD Unavailable Catherine Cm MD Unavailable + Juan, Sydnie M RN Unavailable Unavailable Alfonso Renteria MD Unavailable [phone] Esha Grimm PA-C Primary Care Provider Cheng Todd PA-C Unavailable Radha Lomeli APRN HAND MOLDER AND CASTER Unavailable Jelena David OD Unavailable Pao Joseph RN Unavailable Unavailable Esha Grimm PA-C Unavailable [phone] Valery Veronica PA-C Unavailable [phone] Rey Tay MD Unavailable Rocky Zepeda DO Unavailable Philip Dumont MD Unavailable Meredith Carrera PA-C Unavailable [phone] Neil Kent MD Unavailable Juan Pablo Emmanuel MD Unavailable Encounter Details Date Type Department Care Team (Late st Contact Info) Description 04/12/2023 [facility] [id number] [place] [address] [address] [place] [address] Livan Sharif MD [address] [facility] [address] [place] [address] Social History Tobacco Use Types [...] How often do you attend chur or hinduism services? 1 to 4 times [...] Answer Date Recorded PHQ-2 Score 0 03/10/2023 [facility] - Occupational Stress [...] in a senior care (including now)? No 03/10/2023 [place] Depression Scale Answer Date Recorded [place] Depression Score 5 01/14/2021 Last EPDS Self [...] Thank you. Kim Swann, We are in [place], but asked a tech here to check the photo. He said the spot you chose is OK but he thinks we should have the [employer] check in with you as you may need to have some extra prep gelif you have have issues with the pads. We are reaching out to that [employer] team to let them know you are having some issues. Team [address] [place] [address] Sharif [phone] documented in this encounter Plan of Treatment Upcoming Encounters Date Type Department Care Team (Latest Contact Info) Description 02/14/2024 12:50 PM CDT Therapy Visit [facility] [address] [place] [phone] Rustam Medina, PT [facility] [address] [place] [address] 03/06/2024 3:00 PM CDT Office Visit [facility] [place] [address] [facility] [address] [place] [phone] Radha Lomeli, GUNSMITH APPRENTICE HAND MOLDER AND CASTER [address] [place] [address] 03/07/2024 9:00 AM CDT Hospital Encounter [facility] 909 [facility] 5th [place] [phone] Rocky Zepeda DO 500 [place], [place] 656[address] 03/07/2024 9:00 AM CDT - 03/07/2024 9:30 AM CDT Surgery [facility] 909 [facility] 5th [place] [phone] Rocky Zepeda DO 500 [place], [place] 72[address] Esophagoscopy, gastroscopy, duodenoscopy (EGD), combined 06/21/2024 2:00 PM CORE DRILLER Office Visit [facility] [place] [address] [place] [address], [address] [place] [address] [place] [address] [address] Johnny Penn MD [address] [facility] [place] [address] Scheduled Procedures Name Priority Associated [...] documented as of this encounter Care Teams Online Health And Fitness Coach Relationship Specialty Start Date End Date Marija Edgar APRN HAND MOLDER AND CASTER PCP - General Nurse Practitioner 04/30/20 04/14/23 Esah Grimm PA-C [address] [place] [address] PCP - General Family Medicine 05/04/23 Marija Edgar APRN HAND MOLDER AND CASTER Assigned PCP 06/08/20 04/29/23 Diana Desir, [facility] [address] [place] [address] 264396 Pharmacist Pharmacist 04/17/21 Rain Galaviz PA-C [address] [place] [address] [address] [place] [address] Physician Reach Lift Truck Driver Dermatology 04/28/21 Tavia Wyatt MD [address] [place] [address] [address] [facility] [address] Dermatology 07/14/21 Erica Farrell APRN HAND MOLDER AND CASTER [address] [facility] [address] [place] [address] Nurse Practitioner Cardiovascular Disease 09/09/21 Rich Barrett MD 6 [facility] 9A [place], [place] 758795 Physician Ophthalmology 01/21/22 Neil Kent MD [address] [place] [address] 517565 Dermatology 02/24/22 Diana Desir, [facility] [address] [place] [address] 546446 Assigned MTM Pharmacist 04/07/22 Livan Sharif MD [address] [place] [address] [place] [address] Cardiovascular Disease 05/14/22 Catherine Cm MD [address] [place] [address] [place] [address] Cardiovascular Disease 07/21/22 Valery Veronica, PA-C [address] [place] [address] Physician Reach Lift Truck Driver Dermatology 07/21/22 Brea Quinn APRN HAND MOLDER AND CASTER [address] [place] [address] Nurse Practitioner Dermatology 09/21/22 Brea Quinn APRN HAND MOLDER AND CASTER [address] [place] [address] Assigned Surgical Provider 10/09/22 [place] [address] [address] Assigned Musculoskeletal Provider 10/09/22 Catherine Cm MD [address] [place] [address] [place] [address] Assigned Heart and Vascular Provider 11/13/22 05/27/23 Sydnie Martinez RN Personal Advocate & Liaison (PAL) Family Medicine 03/28/23 07/31/23 Alfonso Renteria MD [address] [facility] [address] [place] [address] Assigned Neuroscience Provider 04/02/23 Cheng Todd PA-C [address] [place] [address] Assigned PCP 04/30/23 07/15/23 Radha Lomeli APRN HAND MOLDER AND CASTER [address] [facility] [address] [place], [place] 390555 Assigned Heart and Vascular Provider 05/28/23 Jelena David OD [address] [facility] [place] [address] Ophthalmology 06/15/23 Pao Joseph, VJ Personal Advocate & Liaison (PAL) Nurse 08/01/23 11/07/23 Esha Grimm PA-C [address] [place] [address] Assigned PCP 07/16/23 Valery Veronica PA-C [address] [place] [address] 354035 Physician Reach Lift Truck Driver Dermatology 09/19/23 Rey Tay MD [address] [place] [address] 474285 Gastroenterology 09/20/23 Rocky Zepeda DO [address] [place] [address] 867705 Physician Gastroenterology 09/20/23 Philip Dumont MD 516 [place] [address] Physician Ophthalmology 09/22/23 Meredith Carrera PA-C 909 [place], [place] 316685 Assigned Gastroenterology Provider 11/01/23 Neil Kent MD [address] [address] Dermatology 11/02/23 [place] [address] [place], [place] 357287 Neurological Surgery 12/26/23 documented as of this encounter
--- OUTSIDE RECORDS SUMMARY | 2024-02-12 05:48 | XMS_ITS | Encounter Summary ---
Author Organization [place] Address [address] [place] [address] Care Team Providers Care Sales Host Name Role Phone Lita Oseguera Unavailable Unavailable Marija Edgar APRN, CNP Primary Care Provider U Marija Bella APRN, CNP Unavailable Unavail able Keisha Dotson MD Unavailable [phone] Diana Desir [facility] Unavailable [phone] Rain Galaviz PA-C Unavailable Tavia Wyatt MD Unavailable Unavailable Erica Farrell APRN PATIENT CENTERED CARE SPECIALIST Unavailable Rich Barrett MD Unavailable [phone] Neil Kent MD Unavailable Diana Desir [facility] Unavailable [phone] Livan Sharif MD Unavailable Catherine Cm MD Unavailable + Valery Veronica PA-C Unavailable [phone] Brea Quinn APRN PATIENT CENTERED CARE SPECIALIST Unavailable [phone] Brea Quinn APRN PATIENT CENTERED CARE SPECIALIST Unavailable Jose Francisco Johnson MD Unavailable Catherine Cm MD Unavailable + Sydnie Martinez RN Unavailable Unavailable Alfonso Renteria MD Unavailable [phone] Esha Grimm PA-C Primary Care Provider Perez Chengjc Fish PA-C Unavailable [phone] Armani Radha Sia JACOBS PATIENT CENTERED CARE SPECIALIST Unavailable Jelena David OD Unavailable Pao Joseph RN Unavailable Unavailable Esha Grimm PA-C Unavailable [phone] Valery Veronica PA-C Unavailable Rey Tay MD Unavailable Rocky Zepeda DO Unavailable Philip Dumont MD Unavailable Meredith Carrera PA-C Unavailable Neil Kent MD Unavailable Juan Pablo Emmanuel MD Unavailable [phone] Encounter Details Date Type Department Care Team (Late st Contact Info) Description 12/23/[address] [facility] [address] [place] [address] Lauren Claudio PA-C [address] [place] [address] Social History Tobacco Use Types [...] How often do you attend judaism or bahai serv ices? Never 09/22/2021 Do you belong [...] Answer Date Recorded PHQ-2 Score 1 10/11/2022 [facility] [place] of Occupat ional Health - Occupational Stress [...] in a retirement (including now)? No 09/22/2021 [place] Depression Scale Answer Date Recorded [place] Depression Score 5 01/14/2021 Last EPDS [...] Description 02/14/2024 12:50 PM CDT Therapy Visit [facility] [address] [place] [phone] Rustam Medina, PT [facility] [address] [place] [address] 03/06/2024 3:00 PM CDT Office Visit [facility] [place] [address] [facility] [address] [place] [phone] Radha Lomeli, LOAN CONSULTANT PATIENT CENTERED CARE SPECIALIST [address] [place], [place] 7[address] 03/07/2024 9:00 AM CDT Hospital Encounter [facility] 909 [facility] 5th [place] [phone] Rocky Zepeda DO 500 [place], [place] [phone] 03/07/2024 9:00 AM CDT - 03/07/2024 9:30 AM CDT Surgery [facility] 909 [facility] 5th [place] [address] Rocky Zepeda DO 500 [place], [place] [phone] Esophagoscopy, gastroscopy, duodenoscopy (EGD), combined 06/21/2024 2:00 PM USER SUPPORT SPECIALIST Office Visit [facility] [place] [address] [facility], [address] [place] [phone] [place] [address] [place], [place] [phone] Johnny Penn MD [address] [place] [phone] Scheduled Procedures Name Priority Associated Diagnoses Date/Ti [...] as of this encounter Care Teams Sales Host Relationship Specialty Start Date End Date Marija Edgar APRN PATIENT CENTERED CARE SPECIALIST PCP - General Nurse Practitioner 04/30/20 04/14/23 Esha Grimm PA-C [address] [place] [address] PCP - General Family Medicine 05/04/23 Lita Oseguera Personal Advocate & Liaison (PAL) 02/28/20 03/27/23 Marija Edgar APRN PATIENT CENTERED CARE SPECIALIST Assigned PCP 06/08/20 04/29/23 Keisha Dotson MD 909 [place], [place] 657915 Assigned Neuroscience Provider 06/04/20 04/01/23 Diana Desir, [facility] [address] [place], [place] 48[address]26 Pharmacist Pharmacist 04/17/21 Rain Galaviz PA-C [address] [place] [address] [place] [address] Physician Ticket Broker Dermatology 04/28/21 Tavia Wyatt MD [address] [place] [address] [address] [place] [address] Dermatology 07/14/21 Erica Farrell APRN PATIENT CENTERED CARE SPECIALIST [address] [place] [address] Nurse Practitioner Cardiovascular Disease 09/09/21 Rich Barrett MD 516 [facility] 9A [place], [place] 510555 Physician Ophthalmology 01/21/22 Neil Kent MD 500 [place], [place] 536705 Dermatology 02/24/22 [facility] 3033 [place], [place] 715506 Assigned [place] Pharmacist 04/07/22 Livan Sharif MD [address], [facility] [address] [place], [place] 306125 Cardiovascular Disease 05/14/22 Catherine Cm MD [address] [facility] [place] [address] Cardiovascular Disease 07/21/22 Valery Veronica, PA-C [address] [place] [address] 293605 Physician Ticket Broker Dermatology 07/21/22 Brea Quinn APRN PATIENT CENTERED CARE SPECIALIST 500 [place] [address] Nurse Practitioner Dermatology 09/21/22 Brea Quinn APRN PATIENT CENTERED CARE SPECIALIST [address] [place] [address] Assigned Surgical Provider 10/09/22 [place] [address] [place] [address] Assigned Musculoskeletal Provider 10/09/22 Catherine Cm MD [address] [facility] [address] [place] [address] Assigned Heart and Vascular Provider 11/13/22 05/27/23 Sydnie Martinez RN Personal Advocate & Liaison (PAL) Family Medicine 03/28/23 07/31/23 Alfonso Renteria MD 5775 [facility] 200 [place], [place] 691356 Assigned Neuroscience Provider 04/02/23 Cheng Todd PA-C [address] [place] [address] [id number] Assigned PCP 04/30/23 07/15/23 Radha Lomeli APRN PATIENT CENTERED CARE SPECIALIST 6405 [facility] [address] [place] [address]635 Assigned Heart and Vascular Provider 05/28/23 Jelena David OD 3305 [facility] [place] [id number] MD Ophthalmology 06/15/23 Pao Joseph, RN Personal Advocate & Liaison (PAL) Nurse 08/01/23 11/07/23 Esha Grimm PA-C [address] [place] [address] Assigned PCP 07/16/23 Valery Veronica PA-C [address] [place] [address] Physician Ticket Broker Dermatology 09/19/23 Rey Tay MD [address] [place] [address] 210865 MD Gastroenterology 09/20/23 Rocky Zepeda DO [address] [place] [address] 279275 Physician Gastroenterology 09/20/23 Philip Dumont MD [address] [place] [address] 872975 Physician Ophthalmology 09/22/23 Meredith Carrera PA-C [address] [place] [address] 616515 Assigned Gastroenterology Provider 11/01/23 Neil Kent MD [address] 385[address] Dermatology 11/02/23 [place] [address] [place] [address] Neurological Surgery 12/26/23 documented as of this encounter
--- OUTSIDE RECORDS SUMMARY | 2024-02-12 05:48 | XMS_ITS | Encounter Summary ---
Author Organization [place] Address [address] [place] [address] Care Team Providers Care Taxi Servicer Name Role Phone Marija Edgar ARLENE VP PLATFORMS Unavailable Unavail able Diana Desir [facility] Unavailable [phone] Rain Galaviz PA-C Unavailable [phone] Tavia Wyatt MD Unavailable Unavailable Erica Farrell APRN VP PLATFORMS Unavailable Rich Barrett MD Unavailable Neil Kent MD Unavailable Diana Desir [facility] Unavailable [phone] Livan Sharif MD Unavailable Catherine Cm MD Unavailable + Valery Veronica PA-C Unavailable [phone] Brea Quinn VIDEO GAMES MECHANIC VP PLATFORMS Unavailable Brea Quinn VIDEO GAMES MECHANIC VP PLATFORMS Unavailable Jose Francisco Johnson MD Unavailable Catherine Cm MD Unavailable + Sydnie Martinez RN Unavailable Unavailable Alfonso Renteria MD Unavailable + [phone] Esha Grimm PA-C Primary Care Provider [phone] Cheng Todd PA-C Unavailable Armani Radha Stovall ARLENE VP [employer]AT[employer]MS Unavailable [phone] Jelena David OD Unavailable Pao Joseph RN Unavailable Unavailable Esha Grimm PA-C Unavailable [phone] Valery Veronica PA-C Unavailable [phone] Rey Tay MD Unavailable Rocky Zepeda DO Unavailable Philip Dumont MD Unavailable [phone] Meredith Carrera PA-C Unavailable [phone] Neil Kent MD Unavailable Juan Pablo Emmanuel MD Unavailable [phone] Encounter Details Date Type Department Care Team (Late st Contact Info) Description 04/18/2023 [facility] Medical Advice [facility] Gastroenterology Clinic [address] [place] [address] Mary Calvo Social History Tobacco [...] often do you attend [facility] or adventism services? 1 to 4 [...] Answer Date Recorded PHQ-2 Score 0 03/10/2023 [facility] of Occupat [...] exercise at this level? 30 min 03/10/2023 [place] Depression Scale Answer Date Recorded [place] Depression Score 5 01/14/2021 Last EPDS Self [...] Description 02/14/2024 12:50 PM CDT Therapy Visit [facility] [address] [place] [address] Rustam Medina, PT [facility] [address] [place] [address] 03/06/2024 3:00 PM CDT Office Visit [facility] Heart Clinic [address] [place] [address] Lomeli Radha E, VIDEO GAMES MECHANIC VP PLATFORMS [address] [place], [place] 6[address] 03/07/2024 9:00 AM CDT Hospital Encounter [address] 5th [place] [address] Rocky Zepeda DO 500 [place], [place] 979465 03/07/2024 9:00 AM CDT - 03/07/2024 9:30 AM CDT Surgery [address] [phone] Rocky Zepeda DO 500 [place], [place] 039475 Esophagoscopy, gastroscopy, duodenoscopy (EGD), combined 06/21/2024 2:00 PM RUBBER AND PLASTICS WORKER Office Visit [facility] Neurology [facility] - [place] [address] [place] [address], [address] [place] [phone] [place] [address] [place] [address] Johnny Penn MD [address] [place] 995765 Scheduled Procedures Name Priority Associated Diagnoses Date/Ti [...] documented as of this encounter Care Teams Taxi Servicer Relationship Specialty Start Date End Date Esha Grimm PA-C [address] [place] [address] PCP - General Family Medicine 05/04/23 Marija Edgar APRN VP PLATFORMS Assigned PCP 06/08/20 04/29/23 Diana Desir, [facility] [address] [place] [address] Pharmacist Pharmacist 04/17/21 Rain Galaviz PA-C [address] [place] [address] [address] [facility] [place] [address] Physician Clark Driver Dermatology 04/28/21 Tavia Wyatt MD [address] [place] [address] [address] [place] [place] [address] Dermatology 07/14/21 Erica Farrell APRN VP PLATFORMS [address] [facility] [address] [place] [address] Nurse Practitioner Cardiovascular Disease 09/09/21 Rich Barrett MD 516 [facility] 9A [place], [place] 853665 Physician Ophthalmology 01/21/22 Neil Kent MD [address] [place] [address] 811035 Dermatology 02/24/22 Diana Desir, [facility] [address] [place] [address] Assigned MTM Pharmacist 04/07/22 Livan Sharif MD [address] [place] [address] [address] [address] Cardiovascular Disease 05/14/22 Catherine Cm MD [address] [place] [address] [place] [address] Cardiovascular Disease 07/21/22 Valery Veronica, PA-C [address] [place] [address] Physician Clark Driver Dermatology 07/21/22 Brea Quinn APRN VP PLATFORMS [address] [place] [address] Nurse Practitioner Dermatology 09/21/22 Brea Quinn APRN VP PLATFORMS [address] [place] [address] Assigned Surgical Provider 10/09/22 [place] [address] [address] [address] Assigned Musculoskeletal Provider 10/09/22 Catherine Cm MD [address] [place] [address] [place] [address] Assigned Heart and Vascular Provider 11/13/22 05/27/23 Sydnie Martinez RN Personal Advocate & Liaison (PAL) Family Medicine 03/28/23 07/31/23 Alfonso Renteria MD 5775 [facility] [address] [place] [address] Assigned Neuroscience Provider 04/02/23 Cheng Todd PA-C [address] [place] [address] Assigned PCP 04/30/23 07/15/23 Radha Lomeli, ARLENE VP PLATFORMS [address] [facility] [address] [place] [address] Assigned Heart and Vascular Provider 05/28/23 Jelena David OD [address] [facility] [place] [address] MD Ophthalmology 06/15/23 Pao Joseph, VJ Personal Advocate & Liaison (PAL) Nurse 08/01/23 11/07/23 Esha Grimm PA-C [address] [place] [address] Assigned PCP 07/16/23 Valery Veronica PA-C [address] [place] [address] Physician Clark Driver Dermatology 09/19/23 Rey Tay MD [address] [place] [address] 958895 Gastroenterology 09/20/23 Rocky Zepeda DO [address] [place] [address] 753255 Physician Gastroenterology 09/20/23 Philip Dumont MD 516 [place] [address] Physician Ophthalmology 09/22/23 Meredith Carrera PA-C 9 [place], [place] 447285 Assigned Gastroenterology Provider 11/01/23 Neil Kent MD [address] [place] [address] 971630 Dermatology 11/02/23 [place] [address] [place], [place] 181337 Neurological Surgery 12/26/23 documented as of this encounter
--- OUTSIDE RECORDS SUMMARY | 2024-02-12 05:48 | XMS_ITS | Encounter Summary ---
Author Organization Ama Address [address] [place] [address] Care Team Providers Care Power Machine Operator Name Role Phone Lita Oseguera Unavailable Unavailable Marija Edgar APRN EVENT SALES ASSISTANT Primary Care Provider U Marija Bella APRN EVENT SALES ASSISTANT Unavailable Unavail able Keisha Dotson MD Unavailable [phone] Diana Desir [facility] Unavailable [phone] Rain Galaviz PA-C Unavailable [phone] Tavia Wyatt MD Unavailable Unavailable Erica Farrell APRN EVENT SALES ASSISTANT Unavailable Rich Barrett MD Unavailable [phone] Neil Kent MD Unavailable Diana Desir [facility] Unavailable [phone] Lvian Sharif MD Unavailable Catherine Cm MD Unavailable + Valery Veronica PA-C Unavailable [phone] Catherine Cm MD Unavailable + Brea Quinn APRN EVENT SALES ASSISTANT Unavailable [phone] Brea Quinn APRN EVENT SALES ASSISTANT Unavailable [phone] Jose Francisco Johnson MD Unavailable Livan Sharif MD Unavailable Catherine Cm MD Unavailable + Sydnie Martinez RN Unavailable Unavailable Alfonso Renteria MD Unavailable [phone] Esha Grimm PA-C Primary Care Provider Cheng Todd PA-C Unavailable Armani Radha Stovall APRN EVENT SALES ASSISTANT Unavailable Jelena David OD Unavailable Pao Joseph RN Unavailable Unavailable Esha Grimm PA-C Unavailable [phone] Valery Veronica PA-C Unavailable Rey Tay MD Unavailable Rocky Zepeda DO Unavailable Philip Dumont MD Unavailable [phone] Meredith Carrera PA-C Unavailable [phone] Neil Kent MD Unavailable Juan Pablo Emmanuel MD Unavailable [phone] Encounter Details Date Type Department Care Team (Late st Contact Info) Description 10/22/2022 MyC Medical Advice [facility] [id number] [place] [address] Lauren Claudio PA-C [address] [place] [address] Social History Tobacco Use Types [...] How often do you attend jewish or hindu serv ices? Never 09/22/2021 Do [...] Recorded PHQ-2 Score 1 10/11/2022 [facility] - Occupational Stress [...] a senior living (including now)? No 09/22/2021 [place] Depression Scale Answer Date Recorded [place] Depression Score 5 01/14/2021 Last EPDS Self [...] CDT Therapy Visit [facility] [place] [address] [place] [address] Rustam Medina, PT [facility] [address] [facility] [place] [address] 03/06/2024 3:00 PM CDT Office Visit [facility] [place] [address] [facility] [address] [place] [address] Radha Lomeli APRN EVENT SALES ASSISTANT [address] [facility] [address] [place], [place] [address] 03/07/2024 9:00 AM CDT Hospital Encounter [facility] [address] [facility] 5th [place] [phone] Rocky Zepeda DO 500 [place], [place] [address]15 03/07/2024 9:00 AM CDT - 03/07/2024 9:30 AM CDT Surgery [facility] [address] [facility] 5th [place] [phone] Rocky Zepeda DO 500 [place], [place] 837165 Esophagoscopy, gastroscopy, duodenoscopy (EGD), combined 06/21/2024 2:00 PM TEST DEVELOPER Office Visit [facility] [address]45 [facility], [address] [place] [address] [place] [address] [place] [address] Johnny Penn MD [address] [place] [address] Scheduled Procedures Name Priority Associated Diagnoses Date/Ti [...] as of this encounter Care Teams Power Machine Operator Relationship Specialty Start Date End Date Marija Edgar APRN EVENT SALES ASSISTANT PCP - General Nurse Practitioner 04/30/20 04/14/23 Esha Grimm PA-C [address] [place] [phone] PCP - General Family Medicine 05/04/23 Lita Oseguera Personal Advocate & Liaison (PAL) 02/28/20 03/27/23 Marija Edgar APRN EVENT SALES ASSISTANT Assigned PCP 06/08/20 04/29/23 Keisha Dotson MD 909 [place], [place] [address] Assigned Neuroscience Provider 06/04/20 04/01/23 Diana Desir [facility] [address] [place] [address] Pharmacist Pharmacist 04/17/21 Rain Galaviz PA-C [address] [place] [address] [address] [place] [address] Physician Repack Room Worker Dermatology 04/28/21 Tavia Wyatt MD [address] [place] [address] [place] [address] Dermatology 07/14/21 Erica Farrell APRN EVENT SALES ASSISTANT [address] [place] [address] Nurse Practitioner Cardiovascular Disease 09/09/21 Rich Barrett MD [address] [place] [address], [address] 219885 Physician Ophthalmology 01/21/22 Neil Kent MD 500 [place], [place] [address]375 Dermatology 02/24/22 Diana Desir, [facility] [address] [place] [address] Assigned MTM Pharmacist 04/07/22 Livan Sharif MD [address], [facility] [address] [place] [address] Cardiovascular Disease 05/14/22 Catherine Cm MD [address] [place] [address] Cardiovascular Disease 07/21/22 Valery Veronica, PALOMAC 909 [place] [address] Physician Repack Room Worker Dermatology 07/21/22 Catherine Cm MD [address] [facility] [address] [place] [address] Assigned Heart and Vascular Provider 07/24/22 11/05/22 Brea Quinn APRN EVENT SALES ASSISTANT [address] [place] [address] Nurse Practitioner Dermatology 09/21/22 Brea Quinn APRN EVENT SALES ASSISTANT [address] [place] [address] Assigned Surgical Provider 10/09/22 [place] [address] [address] Assigned Musculoskeletal Provider 10/09/22 Livan Sharif MD [address], [facility] [address] [place] [address] Assigned Heart and Vascular Provider 11/06/22 11/12/22 Catherine Cm MD [address] [place] [address] Assigned Heart and Vascular Provider 11/13/22 05/27/23 Sydnie Martinez, RN Personal Advocate & Liaison (PAL) Family Medicine 03/28/23 07/31/23 Alfonso Renteria MD [address] [address] Assigned Neuroscience Provider 04/02/23 Cheng Todd PA-C [address] [place] [address] Assigned PCP 04/30/23 07/15/23 Radha Lomeli APRN EVENT SALES ASSISTANT [address]405 [facility] [address] [place] [address] Assigned Heart and Vascular Provider 05/28/23 Jelena David OD [address] [place] [address] Ophthalmology 06/15/23 Pao Joseph, VJ Personal Advocate & Liaison (PAL) Nurse 08/01/23 11/07/23 Esha Grimm PA-C [address] [place] [address] Assigned PCP 07/16/23 Valery Veronica PA-C [address] [place] [address] Physician Repack Room Worker Dermatology 09/19/23 Rey Tay MD [address] [place] [address] Gastroenterology 09/20/23 Rocky Zepeda DO [address] [place] [address] 099695 Physician Gastroenterology 09/20/23 Philip Dumont MD [address] [place] [address] Physician Ophthalmology 09/22/23 Meredith Carrera PA-C [address] [place] [address] Assigned Gastroenterology Provider 11/01/23 Neil Kent MD [address] [place] [address] Dermatology 11/02/23 [place] [address] [place], [place] [address] Neurological Surgery 12/26/23 documented as of this encounter
--- OUTSIDE RECORDS SUMMARY | 2024-02-12 05:48 | XMS_ITS | Encounter Summary ---
Author Organization [facility] Address [address] [place] [address] Care Team Providers Care Procurement Analyst Name Role Phone Marija Edgar APRN TRAFFIC COORDINATOR Primary Care Provider Marija Emery APRN, CNP Unavailable Unavail able Diana Desir [facility] Unavailable [phone] Rain Galaviz PA-C Unavailable [phone] Tavia Wyatt MD Unavailable Unavailable Erica Farrell APRN TRAFFIC COORDINATOR Unavailable Rich Barrett MD Unavailable [phone] Neil Kent MD Unavailable Diana Desir [facility] Unavailable [phone] Livan Sharif MD Unavailable Catherine Cm MD Unavailable + Valery Veronica PA-C Unavailable [phone] Brea Quinn APRN TRAFFIC COORDINATOR Unavailable [phone] Brea Quinn APRN TRAFFIC COORDINATOR Unavailable [phone] Jose Francisco Johnson MD Unavailable Catherine Cm MD Unavailable + Juan, Sydnie M RN Unavailable Unavailable Alfonso Renteria MD Unavailable [phone] Esha Grimm PAUcheC Primary Care Provider Cheng Todd PA-C Unavailable [phone] Radha Lomeli APRN TRAFFIC COORDINATOR Unavailable Jelena David OD Unavailable Pao Joseph RN Unavailable Unavailable Esha Grimm-C Unavailable [phone] JeremíasValery damon PA-C Unavailable [phone] Rey Tay MD Unavailable Rocky Zepeda DO Unavailable Philip Dumont MD Unavailable [phone] Meredith Carrera-C Unavailable [phone] Neil Kent MD Unavailable Juan Pablo Emmanuel MD Unavailable Reason for Visit * Reason Onset Date Comments Forms 04/13/2023 DMV (LOC) Encounter Details Date Type Department Care Team (Late st Contact Info) Description 04/13/2023 Telephone [facility] [address] [facility], [address] [place] [address] Alfonso Renteria MD [address] [facility] [address] 200 [place] [address] Forms (DMV (LOC)) Social History [...] do you attend chur or jew services? 1 to 4 times per year [...] Answer Date Recorded PHQ-2 Score 0 10/25/2023 [facility] - Occupational Stress [...] exercise at this level? 30 min 03/10/2023 [place] Depression Scale Answer Date Recorded [place] Depression Score 5 01/14/2021 Last EPDS Self [...] are unable to fill this out because [place] [employer] will not accept it. It needs to be in your hand writing. The last one filed was 12/2021 andit said over 3 years ago. Notes in chart said last seizure July 2018. If that helps or if you had a more recent seizure please put that date in. We will watch for your updated form. Our fax number [phone]. Thank you. * Telephone Encounter - Magdalena Anne CMA - 04/13/2023 3:20 PM CDT Received DMV (LOC) Form to be completed. Form saved to [employer], encounter routed. Magdalena Anne CMA documented in this encounter Plan of Treatment Upcoming Encounters Date Type Department Care Team (Latest Contact Info) Description 02/14/2024 12:50 PM CDT Therapy Visit [facility] [address] [place] [phone] Rustam Medina, PT [facility] [address] [place] [address] 03/06/2024 3:00 PM CDT Office Visit [facility] [place] [address] [facility] [address] [place] [address] Radha Lomeli, MANAGER PROJECT MANAGEMENT TRAFFIC COORDINATOR [address] [place] [address] 03/07/2024 9:00 AM CDT Hospital Encounter [facility] [place] [address] 5th [place] [phone] Rocky Zepeda, 500 [place], [place] [address]395 03/07/2024 9:00 AM CDT - 03/07/2024 9:[address] [facility] 909 [facility] 5th [place] [address] Rocky Zepeda, DO 500 [place], [place] [address] Esophagoscopy, gastroscopy, duodenoscopy (EGD), combined 06/21/2024 2:00 PM SHEET METAL DUCT INSTALLER APPRENTICE Office Visit [facility] [place] 6545 [facility], [address] [place] [address] [place] [address] [place] [address] [place] [address] Johnny Penn MD [address] [place] [address] Scheduled Procedures Name Priority Associated Diagnoses Date/Ti [...] documented as of this encounter Care Teams Procurement Analyst Relationship Specialty Start Date End Date Marija Edgar APRN TRAFFIC COORDINATOR PCP - General Nurse Practitioner 04/30/20 04/14/23 Esha Grimm PA-C [address] [place] [address] PCP - General Family Medicine 05/04/23 Marija Edgar APRN TRAFFIC COORDINATOR Assigned PCP 06/08/20 04/29/23 Diana Desir, [facility] [address] [place], [place] [address] Pharmacist Pharmacist 04/17/21 Rain aGlaviz PA-C [address] [place] [address] [address] [place] [address] Physician Director Of Radiology Dermatology 04/28/21 Tavia Wyatt MD [address] [place] [address] [address] [place] [address] Dermatology 07/14/21 Erica Farrell APRN TRAFFIC COORDINATOR [address] [facility] [address] [place] [address] Nurse Practitioner Cardiovascular Disease 09/09/21 Rich Barrett MD 516 [facility] 9[address] [place], [place] [address] Physician Ophthalmology 01/21/22 Neil Kent MD 500 [place], [place] 140655 Dermatology 02/24/22 Diana Desir, [facility] 3033 [place] [address] Assigned MTM Pharmacist 04/07/22 Livan Sharif MD [address] [facility] [address] [place] [address] Cardiovascular Disease 05/14/22 Catherine Cm MD [address] [place] [address] [place] [address] Cardiovascular Disease 07/21/22 Valery Veronica, PA-C [address] [place] [address] Physician Director Of Radiology Dermatology 07/21/22 Brea Quinn APRN TRAFFIC COORDINATOR [address] [place] [address] Nurse Practitioner Dermatology 09/21/22 Brea Quinn APRN TRAFFIC COORDINATOR [address] [place] [address] Assigned Surgical Provider 10/09/22 [place] [address] [address] Assigned Musculoskeletal Provider 10/09/22 Catherine Cm MD [address] [facility] [place] [place] [address] Assigned Heart and Vascular Provider 11/13/22 05/27/23 Sydnie Martinez RN Personal Advocate & Liaison (PAL) Family Medicine 9/18/23 1/21/24 Alfonso Renteria MD 5775 [facility] [address] [place] [address] Assigned Neuroscience Provider 04/02/23 Cheng Todd PA-C [address] [place] [address] [id number] Assigned PCP 04/30/23 07/15/23 Radha Lomeli, [place] TRAFFIC COORDINATOR [address] [place] 2154000 [place], [place] [address] Assigned Heart and Vascular Provider 05/28/23 Jelena David OD [address] [facility] [address] [place] 134[address]121 Ophthalmology 06/15/23 Pao Joseph, VJ Personal Advocate & Liaison (PAL) Nurse 08/01/23 11/07/23 Esha Grimm PA-C [address] [place] [address] Assigned PCP 07/16/23 Valery Veronica PA-C [address] [place] [address] 145065 Physician Director Of Radiology Dermatology 09/19/23 Rey Tay MD [address] [place] [address] 1065[address] Gastroenterology 09/20/23 Rocky Zepeda DO [address] [place] [address] [phone] Physician Gastroenterology 09/20/23 Philip Dumont MD 516 [place], [place] 188015 Physician Ophthalmology 09/22/23 Meredith Carrera PA-C 909 [place] [address] Assigned Gastroenterology Provider 11/01/23 Neil Kent MD [address] 540[address] Dermatology 11/02/23 [place] [address] [place], [place] [address] Neurological Surgery 12/26/23 documented as of this encounter
--- OUTSIDE RECORDS SUMMARY | 2024-02-12 05:49 | XMS_ITS | Encounter Summary ---
Author Organization [facility] Address [address] [place] [address] Care Team Providers Care Delivery And Installation Subcontractor Name Role Phone Lita Oseguera Unavailable Unavailable Marija Edgar APRN MULTIFOCAL BUTTON INSPECTOR Primary Care Provider U Marija Bella APRN MULTIFOCAL BUTTON INSPECTOR Unavailable Unavail able Keisha Dotson MD Unavailable [phone] Diana Desir [facility] Unavailable [phone] Rain Galaviz PA-C Unavailable Tavia Wyatt MD Unavailable Unavailable Erica Farrell APRN MULTIFOCAL BUTTON INSPECTOR Unavailable Rich Barrett MD Unavailable [phone] Neil Kent MD Unavailable Diana Desir [facility] Unavailable [phone] Jelena David OD Unavailable Livan Sharif MD Unavailable Catherine Cm MD Unavailable + Valery Veronica PA-C Unavailable [phone] Catherine Cm MD Unavailable + Johnny Murillo MD Unavailable Brea Quinn TELEGRAPH INSTALLER MULTIFOCAL BUTTON INSPECTOR Unavailable [phone] Brea Quinn TELEGRAPH INSTALLER MULTIFOCAL BUTTON INSPECTOR Unavailable Jose Francisco Johnson MD Unavailable Livan Sharif MD Unavailable Catherine Cm MD Unavailable + Sydnie Martinez RN Unavailable Unavailable Alfonso Renteria MD Unavailable [phone] Esha Grimm PA-C Primary Care Provider Cheng Todd PA-C Unavailable Radha Lomeli TELEGRAPH INSTALLER MULTIFOCAL BUTTON INSPECTOR Unavailable Jelena David Radha OD Unavailable Pao Joseph RN Unavailable Unavailable Esha Grimm PA-C Unavailable [phone] Valery Veronica PA-C Unavailable Rey Tay MD Unavailable Rocky Zepeda DO Unavailable Philip Dumont MD Unavailable Meredith Carrera PA-C Unavailable Neil Kent MD Unavailable Juan Pablo Emmanuel MD Unavailable [phone] Encounter Details Date Type Department Care Team (Late st Contact Info) Description 10/06/2022 [facility] Medical Advice [facility] [address] [place] [address] Brea Quinn, TELEGRAPH INSTALLER MULTIFOCAL BUTTON INSPECTOR 6401 [facility] [place] [address] Social History Tobacco Use [...] How often do you attend voodoo or latter day serv ices? Never 09/22/2021 [...] points; Administer PHQ-9 if positive 1 10/10/2022 [facility] - Occupational Stress Questionnaire Answer Date [...] a nursing home (including now)? No 09/22/2021 [place] Depression Scale [...] Description 02/14/2024 12:50 PM CDT Therapy Visit [facility] [place] [address] [place] [address] Rustam Medina, PT [facility] [address] [place] [address] 03/06/2024 3:00 PM CDT Office Visit [facility] [place] [address] [facility] [address] [place] [address] Radha Lomeli, TELEGRAPH INSTALLER MULTIFOCAL BUTTON INSPECTOR [address] [facility] [address] [place] [address] 03/07/2024 9:00 AM CDT Hospital Encounter [address] 5th [place] [phone] Rocky Zepeda DO 500 [place], [place] 287905 03/07/2024 9:00 AM CDT - 03/07/2024 9:30 AM CDT Surgery [facility] [address] [place] [address] 5th [place] [address] Rocky Zepeda DO 500 [place], [place] 711905 Esophagoscopy, gastroscopy, duodenoscopy (EGD), combined 06/21/2024 2:00 PM OCEAN CLAM BOAT CAPTAIN Office Visit [facility] [place] [address] [facility], [address] [place] [address] [place] [address] [facility] [address] Johnny Penn MD [address] [place] [address] Scheduled Procedures Name Priority Associated Diagnoses Date/Ti [...] Depression Total Score: 5 08/27/19 1:14 PM OCEAN CLAM BOAT CAPTAIN documented as of this encounter Care Teams Delivery And Installation Subcontractor Relationship Specialty Start Date End Date Marija Edgar APRN MULTIFOCAL BUTTON INSPECTOR PCP - General Nurse Practitioner 04/30/20 04/14/23 Esha Grimm PA-C [address] [place] [phone] PCP - General Family Medicine 05/04/23 Lita Oseguera Personal Advocate & Liaison (PAL) 02/28/20 03/27/23 Marija Edgar APRN MULTIFOCAL BUTTON INSPECTOR Assigned PCP 06/08/20 04/29/23 Keisha Dotson MD 909 [place], [place] 7[address]85 Assigned Neuroscience Provider 06/04/20 04/01/23 Diana Desir, [facility] [address] [place] [address] Pharmacist Pharmacist 04/17/21 Rain Galaviz PA-C [address] [place] [address] [address] [place] [address] Physician Internet Sales Director Dermatology 04/28/21 Tavia Wyatt MD [address] [place] [address] [address] [place] [address] Dermatology 07/14/21 Erica Farrell APRN MULTIFOCAL BUTTON INSPECTOR [address] [place] [address] Nurse Practitioner Cardiovascular Disease 09/09/21 Rich Barrett MD 516 [facility] 9A [place], [place] [address] Physician Ophthalmology 01/21/22 Neil Kent MD 500 [place], [place] 253855 Dermatology 02/24/22 Diana Desir, [facility] [address] [place] [address] Assigned MTM Pharmacist 04/07/22 Jelena David OD [address] [place] [address] [place] [address] Assigned Surgical Provider 05/08/22 10/08/22 Livan Sharif MD [address] [facility] [address] [place] [address] Cardiovascular Disease 05/14/22 Catherine Cm MD [address] [facility] [address] [place] [address] Cardiovascular Disease 07/21/22 Valery Veronica, PA-C 9 [place], [place] [address] Physician Internet Sales Director Dermatology 07/21/22 Catherine Cm MD [address] [facility] [place] [address] Assigned Heart and Vascular Provider 07/24/22 11/05/22 Johnny Murillo MD [address] [place] [address]354 Assigned Musculoskeletal Provider 08/14/22 10/08/22 Brea Quinn APRN MULTIFOCAL BUTTON INSPECTOR [address] [place] [address] 810645 Nurse Practitioner Dermatology 09/21/22 Brea Quinn APRN MULTIFOCAL BUTTON INSPECTOR [address] [place] [address] [place], [place] 951882 Assigned Surgical Provider 10/09/22 [place] [address] [place] [address] Assigned Musculoskeletal Provider 10/09/22 Livan Sharif MD [address], [facility] [address] [place] [address] Assigned Heart and Vascular Provider 11/06/22 11/12/22 Catherine Cm MD [address] [place] [address] Assigned Heart and Vascular Provider 11/13/22 05/27/23 Sydnie Martinez, RN Personal Advocate & Liaison (PAL) Family Medicine 03/28/23 07/31/23 Alfonso Renteria MD 5775 [facility] 200 [place] [address] Assigned Neuroscience Provider 04/02/23 Cheng Todd PA-C [address] [place] [address] Assigned PCP 04/30/23 07/15/23 Radha Lomeli APRN MULTIFOCAL BUTTON INSPECTOR [address] [place] [address] Assigned Heart and Vascular Provider 05/28/23 Jelena David OD [facility] [place] [address] Ophthalmology 06/15/23 Pao Joseph, VJ Personal Advocate & Liaison (PAL) Nurse 08/01/23 11/07/23 Esha Grimm PA-C [address] [place] [address] Assigned PCP 07/16/23 Valery Veronica PA-C [address] [place] [address] Physician Internet Sales Director Dermatology 09/19/23 Rey Tay MD [address] [place] [address] MD Gastroenterology 09/20/23 Rocky Zepeda DO [address] [place] [address] Physician Gastroenterology 09/20/23 Philip Dumont MD [address] [place] [address] Physician Ophthalmology 09/22/23 Meredith Carrera PA-C [address] [place] [address] Assigned Gastroenterology Provider 11/01/23 Neil Kent MD [address] [place] [address] Dermatology 11/02/23 [place] [address] [facility] [place] [address] Neurological Surgery 12/26/23 documented as of this encounter
--- OUTSIDE RECORDS SUMMARY | 2024-02-12 05:49 | XMS_ITS | Encounter Summary ---
Author Organization [place] Address [address] [place] [address] Care Team Providers Care Pigs Feet Finisher Name Role Phone Lita Oseguera Unavailable Unavailable Marija Edgar APRN SUPERVISOR CASE LOADING Primary Care Provider U Marija Bella APRN SUPERVISOR CASE LOADING Unavailable Unavail able Keisha Dotson MD Unavailable Diana Desir [facility] Unavailable [phone] Rain Galaviz-C Unavailable Tavia Wyatt MD Unavailable Unavailable Erica Farrell APRN SUPERVISOR CASE LOADING Unavailable Rich Barrett MD Unavailable [phone] Neil Kent MD Unavailable Roney Story DPM Unavailable [phone] Diana Desir [facility] Unavailable [phone] Jelena David OD Unavailable Livan Sharif MD Unavailable Livan Sharif MD Unavailable Catherine Cm MD Unavailable + Valery Veronica PA-C Unavailable [phone] Catherine Cm MD Unavailable + Johnny Murillo MD Unavailable [phone] Brea Quinn HUMAN RESOURCES SAFETY MANAGER SUPERVISOR CASE LOADING Unavailable [phone] Brea Quinn HUMAN RESOURCES SAFETY MANAGER SUPERVISOR CASE LOADING Unavailable [phone] Jose Francisco Johnson MD Unavailable Livan Sharif MD Unavailable Catherine Cm MD Unavailable + Sydnie Martinez RN Unavailable Unavailable Alfonso Renteria MD Unavailable Esha Grimm PA-C Primary Care Provider Cheng Todd PA-C Unavailable Radha Lomeli HUMAN RESOURCES SAFETY MANAGER SUPERVISOR CASE LOADING Unavailable [phone] Jelena David OD Unavailable [phone] Pao Joseph RN Unavailable Unavailable Esha Grimm PA-C Unavailable [phone] Valery Veronica PA-C Unavailable [phone] Rey Tay MD Unavailable Rocky Zepeda DO Unavailable Philip Dumont MD Unavailable [phone] Meredith Carrera PA-C Unavailable [phone] Neil Kent MD Unavailable Juan Pablo Emmanuel MD Unavailable [phone] Reason for Visit * Reason Onset Date Comments Appointment 06/14/2022 Stress test and monitor on the same day Encounter Details Date Type Department Care Team (Late st Contact Info) Description 06/14/2022 [facility] Heart [facility] [address] [facility] [address] [place] [address] Livan Sharif MD [address] [place] [address] Appointment (Stress test and monitor on the [...] How often do you attend methodist or zoroastrianism serv ices? Never 09/22/2021 Do you belong [...] points; Administer PHQ-9 if positive 1 05/13/2022 [facility] - Occupational Stress [...] in a assisted (including now)? No 09/22/2021 [place] Depression Scale Answer Date Recorded [place] Depression Score 5 01/14/2021 Last EPDS Self [...] to have Coronavirus/COVID-19? Yes 06/16/2022 12:32 PM INTERSTATE PLANNER documented as of this encounter Miscellaneous Notes * Telephone Encounter - Amalia Matute MA - 06/14/2022 9:30 AM CST [facility] Phone Message May a detailed message be left on voicemail: yes Reason for Call: Other: Pt is needing to reschedule her stress test and ziopatch monitor on the same day. Fridays work best or at 3:30. Please call pt back to schedule. Thank you Action Taken: Message routed to: Other: Cardiology Travel Screening: Not Applicable Thank you! [facility] RSTATE PLANNER documented in this encounter Plan of Treatment Upcoming Encounters Date Type Department Care Team (Latest Contact Info) Description 02/14/2024 12:50 PM CDT Therapy Visit [address] [address] Rustam Medina, PT [facility] [address] [place] [address] 03/06/2024 3:00 PM CDT Office Visit [facility] [place] [address] [facility] [address] [place] [address] Radha Lomeli, HUMAN RESOURCES SAFETY MANAGER SUPERVISOR CASE LOADING [address] [place], [place] [address] 03/07/2024 9:00 AM CDT Hospital Encounter [address] [place] [phone] Rocky Zepeda DO [address] [place], [place] [address] 03/07/2024 9:00 AM CDT - 03/07/2024 9:30 AM CDT Surgery [facility] [address] [facility] 5th [place] [phone] Rocky Zepeda DO [address] [place], [place] [address] Esophagoscopy, gastroscopy, duodenoscopy (EGD), combined 06/21/2024 2:00 PM INTERSTATE PLANNER Office Visit [facility] [place] [address] [place] [address], [address] [place] [phone] [place] [address] [place] [address] Johnny Penn MD [address] [place] [id number] Scheduled Procedures Name Priority Associated Diagnoses Date/Ti il ESOPHAGOGASTRODUODENOSCOPY Eosinophilic esophagitis Esophageal dysphagia 03/07/2024 9:00 AM CDT documented as of this encounter Visit Diagnoses Not on filedocumented in this encounter Additional Health Concerns Infection Onset Date Last Indicated Resolved Time COVID-19 06/09/2022 06/09/2022 06/30/2022 11:4 1 PM INTERSTATE PLANNER Rule Out COVID-19 11/10/2022 11/10/2022 11/11/2022 12:17 PM CDT Rule Out COVID-19 03/07/2023 03/07/2023 03/07/2023 1:20 PM CDT Rule Out COVID-19 12/26/2023 12/26/2023 12/26/2023 9:50 AM CDT Assessment Noted Time PHQ-9 Depression Total Score: 3 05/13/20 22 8:49 PM CDT documented as of this encounter Care Teams Pigs Feet Finisher Relationship Specialty Start Date End Date Marija Edgar APRN SUPERVISOR CASE LOADING PCP - General Nurse Practitioner 04/30/20 04/14/23 Esha Grimm PA-C [address] [place] [phone] PCP - General Family Medicine 05/04/23 Lita Oseguera Personal Advocate & Liaison (PAL) 02/28/20 03/27/23 Marija Edgar APRN SUPERVISOR CASE LOADING Assigned PCP 06/08/20 04/29/23 Keisha Dotson MD [address] [place] [address] Assigned Neuroscience Provider 06/04/20 04/01/23 Diana Desir, [facility] [address] [place] [address] Pharmacist Pharmacist 04/17/21 Rain Galaviz PA-C [address] [place] [address] [address] [place] [address] Physician Microarray Operations Vice President Dermatology 04/28/21 Tavia Wyatt MD [address] [place] [address] [address] [place] [address] Dermatology 07/14/21 Erica Farrell APRN SUPERVISOR CASE LOADING [address] [place] [address] Nurse Practitioner Cardiovascular Disease 09/09/21 Rich Barrett MD [address] [facility] [address] [place], [place] [address] Physician Ophthalmology 01/21/22 Neil Kent MD 500 [place] [address] Dermatology 02/24/22 Roney Story DPM [address] [facility] [address] [place] [address] Assigned Musculoskeletal Provider 03/20/22 08/13/22 Diana Desir, [facility] [address] [place] [address] Assigned MTM Pharmacist 04/07/22 Jelena David OD [address] [place] [address] Assigned Surgical Provider 05/08/22 10/08/22 Livan Sharif MD [address] [place] [address] Cardiovascular Disease 05/14/22 Livan Sharif MD [address] [place] [address] Assigned Heart and Vascular Provider 06/12/22 07/23/22 Catherine Cm MD [address] [place] [address] Cardiovascular Disease 07/21/22 Valery Veronica, PA-C [address] [place] [address] Physician Microarray Operations Vice President Dermatology 07/21/22 Catherine Cm MD [address] [facility] [address] [place] [address] Assigned Heart and Vascular Provider 07/24/22 11/05/22 Johnny Murillo MD [facility] [address] 410[address] Assigned Musculoskeletal Provider 08/14/22 10/08/22 Brea Quinn APRN SUPERVISOR CASE LOADING [address] [place] [address] 918435 Nurse Practitioner Dermatology 09/21/22 Brea Quinn APRN SUPERVISOR CASE LOADING [address] [place] [address] [place] 603992 Assigned Surgical Provider 10/09/22 [place] [address] 967347 Assigned Musculoskeletal Provider 10/09/22 Livan Sharif MD [address], [facility] [address] [place] [phone] Assigned Heart and Vascular Provider 11/06/22 11/12/22 Catherine Cm MD [address] [facility] [place] [address]3285 Assigned Heart and Vascular Provider 11/13/22 05/27/23 Sydnie Martinez RN Personal Advocate & Liaison (PAL) Family Medicine 03/28/23 07/31/23 Alfonso Renteria MD [address] [facility] [address] [place] [address] Assigned Neuroscience Provider 04/02/23 Cheng Todd PA-C [address] [place] [address] Assigned PCP 04/30/23 07/15/23 Radha Lomeli APRN SUPERVISOR CASE LOADING [address] [facility] [address] [place] [address] Assigned Heart and Vascular Provider 05/28/23 Jelena David OD [address] [place] [address] Ophthalmology 06/15/23 Pao Joseph, VJ Personal Advocate & Liaison (PAL) Nurse 08/01/23 11/07/23 Esha Grimm PA-C [address] [place] [address] Assigned PCP 07/16/23 Valery Veronica PA-C [address] [place] [address] 642145 Physician Microarray Operations Vice President Dermatology 09/19/23 Rey Tay MD [address] [place] [address] Gastroenterology 09/20/23 Rocky Zepeda DO [address] [place] [address] Physician Gastroenterology 09/20/23 Philip Dumont MD [address] [place] [address] Physician Ophthalmology 09/22/23 Meredith Carrera PA-C [address] [place] [address] Assigned Gastroenterology Provider 11/01/23 Neil Kent MD [address] [place] [address] Dermatology 11/02/23 [place] [address] 062157 Neurological Surgery 12/26/23 documented as of this encounter
--- OUTSIDE RECORDS SUMMARY | 2024-02-12 05:49 | XMS_ITS | Encounter Summary ---
Author Organization [place] Address [address] [place] [address] Care Team Providers Care Commercial Loan Officer Name Role Phone Lita Oseguera Unavailable Unavailable Marija Edgar APRN YOUTH SERVICES SPECIALIST Primary Care Provider U Marija Bella APRN YOUTH SERVICES SPECIALIST Unavailable Unavail able Keisha Dotson MD Unavailable [phone] Diana Desir [facility] Unavailable Rain Galaviz-C Unavailable Tavia Wyatt MD Unavailable Unavailable Erica Farrell APRN YOUTH SERVICES SPECIALIST Unavailable Rich Barrett MD Unavailable [phone] Neil Kent MD Unavailable Roney Story DPM Unavailable [phone] Diana Desir [facility] Unavailable [phone] Jelena David OD Unavailable Livan Sharif MD Unavailable Livan Sharif MD Unavailable Catherine Cm MD Unavailable + Valery Veronica PA-C Unavailable [phone] Catherine Cm MD Unavailable + Johnny Murillo MD Unavailable [phone] Brea Quinn SUBSTATION OPERATOR AUTOMATIC YOUTH SERVICES SPECIALIST Unavailable [phone] Brea Quinn SUBSTATION OPERATOR AUTOMATIC YOUTH SERVICES SPECIALIST Unavailable [phone] Jose Francisco Johnson MD Unavailable Livan Sharif MD Unavailable Catherine Cm MD Unavailable + Sydnie Martinez RN Unavailable Unavailable Alfonso Renteria MD Unavailable [phone] Esha Grimm PA-C Primary Care Provider Cheng Todd PA-C Unavailable Radha Lomeli SUBSTATION OPERATOR AUTOMATIC YOUTH SERVICES SPECIALIST Unavailable Jelena David OD Unavailable Pao Joseph RN Unavailable Unavailable Esha Grimm PA-C Unavailable [phone] Valery Veronica PA-C Unavailable Rey Tay MD Unavailable Rocky Zepeda DO Unavailable Philip Dumont MD Unavailable Meredith Carrera PA-C Unavailable [phone] Neil Kent MD Unavailable Juan Pablo Emmanuel MD Unavailable Encounter Details Date Type Department Care Team (Late st Contact Info) Description 07/02/2022 [facility] [address] [address] Diana Desir, [facility] [address] [place] [address] Social History Tobacco Use Types [...] How often do you attend zoroastrianism or mormon serv ices? Never 09/22/2021 Do [...] Administer PHQ-9 if positive 1 05/13/2022 [facility] - [...] in a residential (including now)? No 09/22/2021 [place] Depression Scale Answer Date Recorded [place] Depression Score 5 01/14/2021 Last EPDS [...] Coronavirus/COVID-19? No / Unsure 06/25/2022 8:44 AM BOILER REPAIR SUPERVISOR documented as of this encounter Plan of Treatment Upcoming Encounters Date Type Department Care Team (Latest Contact Info) Description 02/14/2024 12:50 PM CDT Therapy Visit [facility] [address] [place] [phone] Rustam Medina, PT [facility] [address] [place] [address] 03/06/2024 3:00 PM CDT Office Visit [facility] [place] [address] [place] [address] [address] [place] [phone] Radha Lomeli, SUBSTATION OPERATOR AUTOMATIC YOUTH SERVICES SPECIALIST [address] [place] [address] 03/07/2024 9:00 AM CDT Hospital Encounter [address] [phone] Rocky Zepeda DO 500 [place] [address] 03/07/2024 9:00 AM CDT - 03/07/2024 9:30 AM CDT Surgery [address] [phone] Rocky Zepeda DO [address] [place], [place] 7[address] Esophagoscopy, gastroscopy, duodenoscopy (EGD), combined 06/21/2024 2:00 PM BOILER REPAIR SUPERVISOR Office Visit [facility] [place] [address] [facility], [address] [place] [address] [place] [address] [address] [id number] Johnny Penn MD [address] [facility] [address] Scheduled Procedures Name Priority Associated [...] as of this encounter Care Teams Commercial Loan Officer Relationship Specialty Start Date End Date Marija Edgar APRN YOUTH SERVICES SPECIALIST PCP - General Nurse Practitioner 04/30/20 04/14/23 Esha Grimm PA-C [address] [place] [address] PCP - General Family Medicine 05/04/23 Lita Oseguera Personal Advocate & Liaison (PAL) 02/28/20 03/27/23 Marija Edgar APRN YOUTH SERVICES SPECIALIST Assigned PCP 06/08/20 04/29/23 Keisha Dotson MD [address] [place] [address] Assigned Neuroscience Provider 06/04/20 04/01/23 Diana Desir [facility] [address] [place] [address] Pharmacist Pharmacist 04/17/21 Rain Galaviz PA-C [address] [place] [address] [address] [facility] [address] Physician Transformer Shop Supervisor Dermatology 04/28/21 Tavia Wyatt MD [address] [place] [address] DR [address] [facility] [place] [address] Dermatology 07/14/21 Erica Farrell APRN YOUTH SERVICES SPECIALIST [address] [place] [address] Nurse Practitioner Cardiovascular Disease 09/09/21 Rich Barrett MD [address] [place] [address] [address] [place], [place] 7[address] Physician Ophthalmology 01/21/22 Niel Kent MD [address] [place] [address] 817525 Dermatology 02/24/22 [place] [address] [facility] [address] [place], [place] 8901[address] Assigned Musculoskeletal Provider 03/20/22 08/13/22 Diana Desir [facility] [address] [place] [address] Assigned MTM Pharmacist 04/07/22 Frankie Jelena TempletonSONJA woods [address] [facility] [place] [address] Assigned Surgical Provider 05/08/22 10/08/22 Livan Sharif MD [address], [facility] [place] 12[address] Cardiovascular Disease 05/14/22 Livan Sharif MD [address], [facility] [place] [address] Assigned Heart and Vascular Provider 06/12/22 07/23/22 Catherine Cm MD [address] [facility] [place] [address] Cardiovascular Disease 07/21/22 Valery Veronica, PA-C [address] [place] [address] Physician Transformer Shop Supervisor Dermatology 07/21/22 Catherine Cm MD [address] [facility] [place] [address] Assigned Heart and Vascular Provider 07/24/22 11/05/22 Johnny Murillo MD [address] [place] [address] 133574 Assigned Musculoskeletal Provider 08/14/22 10/08/22 Brea Quinn APRN YOUTH SERVICES SPECIALIST [address] [place] [address] Nurse Practitioner Dermatology 09/21/22 Brea Quinn APRN YOUTH SERVICES SPECIALIST [address] [facility] [place] [address] Assigned Surgical Provider 10/09/22 [place] [address] [facility] 300 [place] [address] Assigned Musculoskeletal Provider 10/09/22 Livan Sharif MD [address] [facility] [address] [place] [address] Assigned Heart and Vascular Provider 11/06/22 11/12/22 Catherine Cm MD [address] [facility] [place] [address] Assigned Heart and Vascular Provider 11/13/22 05/27/23 Sydnie Martinez RN Personal Advocate & Liaison (PAL) Family Medicine 03/28/23 07/31/23 Alfonso Renteria MD [address] [facility] 200 [place], [place] [address] Assigned Neuroscience Provider 04/02/23 Cheng Todd PA-C [address] [place] [address] Assigned PCP 04/30/23 07/15/23 Radha Lomeli APRN YOUTH SERVICES SPECIALIST [address] [place] [address] Assigned Heart and Vascular Provider 05/28/23 Jelena David OD [address] [facility] [place] [address] MD Ophthalmology 06/15/23 Pao Joseph, RN Personal Advocate & Liaison (PAL) Nurse 08/01/23 11/07/23 Esha Grimm PA-C [address] [place] [address] Assigned PCP 07/16/23 Valery Veronica PA-C [address] [place] [address] 046595 Physician Transformer Shop Supervisor Dermatology 09/19/23 Rey Tay MD [address] [place] [address] Gastroenterology 09/20/23 Rocky Zepeda DO [address] [place] [address] 528095 Physician Gastroenterology 09/20/23 Philip Dumont MD [address] [place] [address] 086555 Physician Ophthalmology 09/22/23 Meredith Carrera PA-C [address] [place] [address] 376105 Assigned Gastroenterology Provider 11/01/23 Neil Kent MD [address] 483740 Dermatology 11/02/23 [place] [address] [place] [address] Neurological Surgery 12/26/23 documented as of this encounter
--- OUTSIDE RECORDS SUMMARY | 2024-02-12 05:49 | XMS_ITS | Encounter Summary ---
Author Organization [facility] Address [address] [place] [address] Care Team Providers Care Hospitality Director Name Role Phone Lita Oseguera Unavailable Unavailable Marija Edgar APRN WET MILLING WHEEL OPERATOR Primary Care Provider U Marija Bella APRN WET MILLING WHEEL OPERATOR Unavailable Unavail able Keisha Dotson MD Unavailable [phone] [facility] Unavailable [phone] Rain Galaviz PA-C Unavailable Tavia Wyatt MD Unavailable Unavailable Erica Farrell APRN WET MILLING WHEEL OPERATOR Unavailable Rich Barrett MD Unavailable [phone] Neil Kent MD Unavailable [facility] Unavailable [phone] Jelena David OD Unavailable Livan Sharif MD Unavailable Catherine Cm MD Unavailable + Valery Veronica PA-C Unavailable [phone] Catherine Cm MD Unavailable + Johnny Murillo MD Unavailable [phone] Brea Quinn PIG FARM MANAGER WET MILLING WHEEL OPERATOR Unavailable Brea Quinn PIG FARM MANAGER WET MILLING WHEEL OPERATOR Unavailable [phone] Jose Francisco Johnson MD Unavailable Livan Sharif MD Unavailable Catherine Cm MD Unavailable + Sydnie Martinez RN Unavailable Unavailable Alfonso Renteria MD Unavailable [phone] Esha Grimm PA-C Primary Care Provider Cheng Todd PA-C Unavailable Armani Radha Sia PIG FARM MANAGER WET MILLING WHEEL OPERATOR Unavailable Jelena David Radha OD Unavailable Pao Joseph RN Unavailable Unavailable Esha Grimm PA-C Unavailable [phone] Valery Veronica PA-C Unavailable Rey Tay [...] Description 09/21/2022 Telephone [facility] [address], [address] [place] [address] Keisha Dotson MD [address] [place] [address] Call Back (Change of provider request) [...] How often do you attend religion or restoration serv ices? Never 09/22/2021 Do you belong [...] Answer Date Recorded PHQ-2 Score 2 08/27/2022 [facility] - Occupational Stress Questionnaire Answer [...] a group home (including now)? No 09/22/2021 [place] Depression Scale Answer Date Recorded [place] Depression Score 5 01/14/2021 Last EPDS Self [...] Aleyda Guan - 09/21/2022 10:47 AM CDT [facility] Call Center Phone Message May a detailed message be left on voicemail: yes Reason for Call: Other: Change of provider request, Pt would like to be seen with another provider. Please call Pt back at [phone] to scheduled or advise. Action Taken: Message routed to: [facility] Neurology Travel Screening: Not Applicable documented in this encounter Plan of Treatment Upcoming Encounters Date Type Department Care Team (Latest Contact Info) Description 02/14/2024 12:50 PM CDT Therapy Visit [facility] [address] [phone] Rustam Medina, PT [facility] [id number] [place] [address] 03/06/2024 3:00 PM CDT Office Visit [facility] [place] [address] [facility] [address] [place] [phone] Radha Lomeli, PIG FARM MANAGER WET MILLING WHEEL OPERATOR [address] [place] [address] 03/07/2024 9:00 AM CDT Hospital Encounter [facility] [address] [facility] [address] 5th [place] [phone] Rocky Zepeda DO [address] [place], [place] [address] 03/07/2024 9:00 AM CDT - 03/07/2024 9:30 AM CDT Surgery [facility] [address] [facility] [address] 5th [place] [phone] Rocky Zepeda, [address] [place], [place] [phone] Esophagoscopy, gastroscopy, duodenoscopy (EGD), combined 06/21/2024 2:00 PM WOOD STOCK BLANK HANDLER Office Visit [facility] [place] [address] [facility], [address] [place] [address] [place] [address] [place], [place] [phone] Johnny Penn MD [address] [facility] [place] [id number] Scheduled Procedures Name Priority Associated Diagnoses Date/Ti [...] Depression Total Score: 5 08/27/19 1:14 PM WOOD STOCK BLANK HANDLER documented as of this encounter Care Teams Hospitality Director Relationship Specialty Start Date End Date Marija Edgar APRN CNP PCP - General Nurse Practitioner 04/30/20 04/14/23 Esha Grimm PA-C [address] [place] [phone] PCP - General Family Medicine 05/04/23 Lita Oseguera Personal Advocate & Liaison (PAL) 02/28/20 03/27/23 Marija Edgar APRN WET MILLING WHEEL OPERATOR Assigned PCP 06/08/20 04/29/23 Keisha Dotson MD [address] [place] [address] Assigned Neuroscience Provider 06/04/20 04/01/23 [facility] [address] [place] [address] Pharmacist Pharmacist 04/17/21 Rain Galaviz PA-C [address] [place] [address] [address] [place] [address] Physician Water Treatment Plant Engineer Dermatology 04/28/21 Tavia Wyatt MD [address] [place] [address] [address] [place] [address] Dermatology 07/14/21 Erica Farrell APRN WET MILLING WHEEL OPERATOR [address] [place] [address] Nurse Practitioner Cardiovascular Disease 09/09/21 Rich Barrett MD [address] [id number] Physician Ophthalmology 01/21/22 Neil Kent MD [address] [place] [address] [id number] Dermatology 02/24/22 Diana Desir, [facility] [address] [place], [place] [phone] Assigned MTM Pharmacist 04/07/22 Jelena David OD [address] [facility] [place] [address] Assigned Surgical Provider 05/08/22 10/08/22 Livan Sharif MD [address], [address] [address] Cardiovascular Disease 05/14/22 Catherine Cm MD [address] 923865 Cardiovascular Disease 07/21/22 Valery Veronica, PA-C [address] [place] [address] Physician Water Treatment Plant Engineer Dermatology 07/21/22 Catherine Cm MD [address] 021125 Assigned Heart and Vascular Provider 07/24/22 11/05/22 Johnny Murillo MD [facility] [address] [phone] Assigned Musculoskeletal Provider 08/14/22 10/08/22 Brea Quinn APRN WET MILLING WHEEL OPERATOR [address] [place] [address] [phone] Nurse Practitioner Dermatology 09/21/22 Brea Quinn APRN WET MILLING WHEEL OPERATOR [address] [facility] [place] [address] Assigned Surgical Provider 10/09/22 [place] [address] [facility] [address] [place] [address] Assigned Musculoskeletal Provider 10/09/22 Livan Sharif MD [address] [facility] [address] [place] [address]65 Assigned Heart and Vascular Provider 11/06/22 11/12/22 Catherine Cm MD [address] [facility]00 [place] [address] Assigned Heart and Vascular Provider 11/13/22 05/27/23 Sydnie Martinez RN Personal Advocate & Liaison (PAL) Family Medicine 03/28/23 07/31/23 Alfonso Renteria MD [address] [facility] 200 [place] [address] Assigned Neuroscience Provider 04/02/23 Cheng Todd PA-C [address] [place] [address] [id number] Assigned PCP 04/30/23 07/15/23 Radha Lomeli APRN WET MILLING WHEEL OPERATOR [address] [place] [address] Assigned Heart and Vascular Provider 05/28/23 Jelena David OD [address] [facility] [place] [address] MD Ophthalmology 06/15/23 Pao Josehp, RN Personal Advocate & Liaison (PAL) Nurse 08/01/23 11/07/23 Esha Grimm PA-C [address] [place] [address] Assigned PCP 07/16/23 Valery Veronica PA-C [address] [place] [address] 608995 Physician Water Treatment Plant Engineer Dermatology 09/19/23 Rey Tay MD [address] [place] [address] [id number] MD Gastroenterology 09/20/23 Rocky Zepeda DO [address] [place] [address] 389125 Physician Gastroenterology 09/20/23 Philip Dumont MD [address] [place] [address] 497355 Physician Ophthalmology 09/22/23 Meredith Carrera PA-C [address] [place] [address] 124925 Assigned Gastroenterology Provider 11/01/23 Neil Kent MD [address] [address] Dermatology 11/02/23 [place] [address] [address] Neurological Surgery 12/26/23 documented as of this encounter
--- OUTSIDE RECORDS SUMMARY | 2024-02-12 05:49 | XMS_ITS | Encounter Summary ---
Author Organization [facility] Address [address] [place] [address] Care Team Providers Care Tour Escort Name Role Phone Lita Oseguera Unavailable Unavailable Marija Edgar APRN COMPUTER SCIENCE INTERN Primary Care Provider U Marija Bella APRN COMPUTER SCIENCE INTERN Unavailable Unavail able Keisah Dotson MD Unavailable Diana Desir [facility] Unavailable Rain Galaviz-C Unavailable Tavia Wyatt MD Unavailable Unavailable Erica Farrell APRN COMPUTER SCIENCE INTERN Unavailable Rich Barrett MD Unavailable [phone] Neil Kent MD Unavailable Roney Story DPM Unavailable [phone] Diana Desir [facility] Unavailable [phone] Jelena David OD Unavailable Livan Sharif MD Unavailable Livan Sharif MD Unavailable Catherine Cm MD Unavailable + Valery Veronica PA-C Unavailable [phone] Catherine Cm MD Unavailable + Johnny Murillo MD Unavailable [phone] Brea Quinn NUTRITION PROGRAM INSTRUCTOR COMPUTER SCIENCE INTERN Unavailable [phone] Brea Quinn NUTRITION PROGRAM INSTRUCTOR COMPUTER SCIENCE INTERN Unavailable Jose Francisco Johnson MD Unavailable Livan Sharif MD Unavailable Catherine Cm MD Unavailable + Sydnie Martinez RN Unavailable Unavailable Alfonso Renteria MD Unavailable Esha Grimm PA-C Primary Care Provider Cheng Todd PA-C Unavailable Radha Lomeli NUTRITION PROGRAM INSTRUCTOR COMPUTER SCIENCE INTERN Unavailable [phone] Jelena David OD Unavailable Pao Joseph RN Unavailable Unavailable Esha Grimm PA-C Unavailable [phone] Valery Veronica PA-C Unavailable Rey Tay MD Unavailable Rocky Zepeda DO Unavailable Philip Dumont MD Unavailable [phone] Meredith Carrera PA-C Unavailable Neil Kent MD Unavailable Juan Pablo Emmanuel MD Unavailable Encounter Details Date Type Department Care Team (Late st Contact Info) Description 07/20/2022 [facility] Heart [address] [address] Pao Donahue, RN Social History Tobacco Use [...] How often do you attend bahai or voodoo serv ices? Never 09/22/2021 Do [...] a group home (including now)? No 09/22/2021 [place] Depression Scale Answer Date Recorded [place] Depression Score 5 01/14/2021 Last EPDS Self [...] Coronavirus/COVID-19? No / Unsure 07/23/2022 6:45 AM QUALITY ASSURANCE ASSOCIATE documented as of this encounter Plan of Treatment Upcoming Encounters Date Type Department Care Team (Latest Contact Info) Description 02/14/2024 12:50 PM CDT Therapy Visit [facility] [place] [address] [place] [phone] Rustam Medina, PT [facility] [address] [place] [address] 03/06/2024 3:00 PM CDT Office Visit [facility] Heart [facility] [address] [facility] [address] [place] [phone] Radha Lomeli APRN COMPUTER SCIENCE INTERN [address] [facility] [address] [place], [place] [address] 03/07/2024 9:00 AM CDT Hospital Encounter [address]th [place] [phone] Rocky Zepeda DO 500 [place], [place] 6[address]385 03/07/2024 9:00 AM CDT - 03/07/2024 9:30 AM CDT Surgery [address]th [place] [phone] Rocky Zepeda DO 500 [place], [place] 7[address] Esophagoscopy, gastroscopy, duodenoscopy (EGD), combined 06/21/2024 2:00 PM QUALITY ASSURANCE ASSOCIATE Office Visit [facility] Neurology Clinics [facility] [address] [facility], [address] [place] [address] [place] [address] [facility] [place] [address] Johnny Penn MD [address] [place] [address] Scheduled Procedures Name Priority Associated Diagnoses Date/Ti [...] documented as of this encounter Care Teams Tour Escort Relationship Specialty Start Date End Date Marija Edgar APRN COMPUTER SCIENCE INTERN PCP - General Nurse Practitioner 04/30/20 04/14/23 Esha Grimm PA-C [address] [place] [phone] PCP - General Family Medicine 05/04/23 Lita Oseguera Personal Advocate & Liaison (PAL) 02/28/20 03/27/23 Marija Edgar APRN COMPUTER SCIENCE INTERN Assigned PCP 06/08/20 04/29/23 Keisha Dotson MD [address]09 [place] [address] Assigned Neuroscience Provider 06/04/20 04/01/23 Diana Desir, [facility] [address] [place] [address] Pharmacist Pharmacist 04/17/21 Rain Galaviz PA-C [address] [place] [address] [address] [place] [address] Physician Retail Team Member Dermatology 04/28/21 Tavia Wyatt MD [address] [place] [address] [address] [place] [address] Dermatology 07/14/21 Erica Farrell APRN COMPUTER SCIENCE INTERN [address] [place] [address] Nurse Practitioner Cardiovascular Disease 09/09/21 Rich Barrett MD [address] [facility] [address] [place], [place] [address] Physician Ophthalmology 01/21/22 Neil Kent MD 500 [place] [address] Dermatology 02/24/22 Roney Story DPM [address] [facility] [address] [place] [address] Assigned Musculoskeletal Provider 03/20/22 08/13/22 Diana Desir, [facility] [address] [place] [address] Assigned MTM Pharmacist 04/07/22 Jelena David OD [facility] [facility] [place] [address] Assigned Surgical Provider 05/08/22 10/08/22 Livan Sharif MD [address], [facility] [address] [place], [place] [address] Cardiovascular Disease 05/14/22 Livan Sharif MD [address], [address] [address] [place] [address] Assigned Heart and Vascular Provider 06/12/22 07/23/22 Catherine Cm MD [address] [address] [place], [place] 5859[address] Cardiovascular Disease 07/21/22 Valery Veronica, PA-C [address] [place] [address] 848725 Physician Retail Team Member Dermatology 07/21/22 Catherine Cm MD [address] [address] [place] 824965 Assigned Heart and Vascular Provider 07/24/22 11/05/22 Johnny Murillo MD [facility] [address] 380634 Assigned Musculoskeletal Provider 08/14/22 10/08/22 Brea Quinn APRN COMPUTER SCIENCE INTERN [address] [place] [address] [phone] Nurse Practitioner Dermatology 09/21/22 Brea Quinn APRN COMPUTER SCIENCE INTERN [address] [place] [address] Assigned Surgical Provider 10/09/22 [place] [address] [facility] [address] [place] [address] Assigned Musculoskeletal Provider 10/09/22 Livan Sharif MD [address], [facility] [address] [place], [place] 1213[address] Assigned Heart and Vascular Provider 11/06/22 11/12/22 Catherine Cm MD [address] [address] [place], [place] 3325[address] Assigned Heart and Vascular Provider 11/13/22 05/27/23 Sydnie Martinez, VJ Personal Advocate & Liaison (PAL) Family Medicine 03/28/23 07/31/23 Alfonso Renteria MD [address] [facility] 200 [place] [address] Assigned Neuroscience Provider 04/02/23 Cheng Todd PA-C [address] [place] [address] Assigned PCP 04/30/23 07/15/23 Radha Lomeli APRN COMPUTER SCIENCE INTERN [address] [place] [address] Assigned Heart and Vascular Provider 05/28/23 Jelena David OD [address] [facility] [place] [address] MD Ophthalmology 06/15/23 Pao Joseph, RN Personal Advocate & Liaison (PAL) Nurse 08/01/23 11/07/23 Esha Grimm PA-C [address] [place] [phone] Assigned PCP 07/16/23 Valery Veronica PA-C [address] [place] [address] 321855 Physician Retail Team Member Dermatology 09/19/23 Rey Tay MD [address] [place] [address] [id number] MD Gastroenterology 09/20/23 Rocky Zepeda DO [address] [place] [address] 541175 Physician Gastroenterology 09/20/23 Philip Dumont MD [address] [place] [address] 666585 Physician Ophthalmology 09/22/23 Meredith Carrera PA-C [address] [place] [address] 843135 Assigned Gastroenterology Provider 11/01/23 Neil Kent MD [address] [address] Dermatology 11/02/23 [place] [address] [place] [address] Neurological Surgery 12/26/23 documented as of this encounter
--- OUTSIDE RECORDS SUMMARY | 2024-02-12 05:49 | XMS_ITS | Encounter Summary ---
Author Organization [place] Address [address] [place] [address] Care Team Providers Care Seamstress Fitter Name Role Phone Lita Oseguera Unavailable Unavailable Marija Edgar APRN CUSTOMER SERVICE REP Primary Care Provider U Marija Bella APRN CUSTOMER SERVICE REP Unavailable Unavail able Keisha Dotson MD Unavailable [phone] Diana Desir [facility] Unavailable Rain Galaviz-C Unavailable Tavia Wyatt MD Unavailable Unavailable Erica Farrell APRN CUSTOMER SERVICE REP Unavailable Rich Barrett MD Unavailable [phone] Neil Kent MD Unavailable Roney Story DPM Unavailable [phone] Diana Desir [facility] Unavailable [phone] Jelena David OD Unavailable Livan Sharif MD Unavailable Livan Sharif MD Unavailable Catherine Cm MD Unavailable + Valery Veronica PA-C Unavailable [phone] Catherine Cm MD Unavailable + Johnny Murillo MD Unavailable [phone] Brea Quinn BAR EXAMINER CUSTOMER SERVICE REP Unavailable [phone] Brea Quinn BAR EXAMINER CUSTOMER SERVICE REP Unavailable [phone] Jose Francisco Johnson MD Unavailable Livan Sharif MD Unavailable Catherine Cm MD Unavailable + Sydnie Martinez RN Unavailable Unavailable Alfonso Renteria MD Unavailable [phone] Esha Grimm PA-C Primary Care Provider Cheng Todd PA-C Unavailable Radha Lomeli BAR EXAMINER CUSTOMER SERVICE REP Unavailable Jelena David OD Unavailable [phone] Pao Joseph RN Unavailable Unavailable Esha Grimm PA-C Unavailable [phone] Valery Veronica PA-C Unavailable Rey Tay MD Unavailable Rocky Zepeda DO Unavailable Philip Dumont MD Unavailable Meredith Carrera PA-C Unavailable Neil Kent MD Unavailable Juan Pablo Emmanuel MD Unavailable Encounter Details Date Type Department Care Team (Late st Contact Info) Description 07/07/2022 [facility] [address] [facility] [address] [place] [address] Livan Sharif MD [address] [place] [address] Social History Tobacco Use Types [...] How often do you attend yazidism or nondenominational serv ices? Never 09/22/2021 Do you belong [...] points; Administer PHQ-9 if positive 1 05/13/2022 [facility] - Occupational Stress Questionnaire Answer Date [...] in a alf (including now)? No 09/22/2021 [place] Depression Scale Answer Date Recorded [place] Depression Score 5 01/14/2021 Last EPDS Self [...] Coronavirus/COVID-19? No / Unsure 06/25/2022 8:44 AM DRUM LOADER AND UNLOADER documented as of this encounter Plan of Treatment Upcoming Encounters Date Type Department Care Team (Latest Contact Info) Description 02/14/2024 12:50 PM CDT Therapy Visit [facility] [address] [place] [phone] Rustam Medina, PT [facility] [address] [place] [address] 03/06/2024 3:00 PM CDT Office Visit [facility] [place] [address] [place] [address] [address] [place] [phone] Radha Lomeli E, BAR EXAMINER CUSTOMER SERVICE REP [address] [place], [place] 549985 03/07/2024 9:00 AM CDT Hospital Encounter [address] [phone] Rocky Zepeda DO 500 [place], [place] 4[address]65 03/07/2024 9:00 AM CDT - 03/07/2024 9:30 AM CDT Surgery [address] [phone] Rocky Zepeda DO 500 [place], [place] 717735 Esophagoscopy, gastroscopy, duodenoscopy (EGD), combined 06/21/2024 2:00 PM DRUM LOADER AND UNLOADER Office Visit [facility] [place] [address] [facility], [address] [place] [address] [place] [address] [place], [place] [address] Johnny Penn MD 7034 [facility] [place] [address] Scheduled Procedures Name Priority Associated Diagnoses [...] documented as of this encounter Care Teams Seamstress Fitter Relationship Specialty Start Date End Date Marija Edgar APRN CUSTOMER SERVICE REP PCP - General Nurse Practitioner 04/30/20 04/14/23 Esha Grimm PA-C [address] [place] [address] PCP - General Family Medicine 05/04/23 Lita Oseguera Personal Advocate & Liaison (PAL) 02/28/20 03/27/23 Marija Edgar APRN CUSTOMER SERVICE REP Assigned PCP 06/08/20 04/29/23 Keisha Dotson MD 9 [place] [address] Assigned Neuroscience Provider 06/04/20 04/01/23 Diana Desir [facility] [address] [place] [address] Pharmacist Pharmacist 04/17/21 Rain Galaviz PA-C [address] [place] [address] [address] [facility] [address] Physician Student Specialist Dermatology 04/28/21 Tavia Wyatt MD [address] [place] [address] [address] [facility] [place] [address] Dermatology 07/14/21 Erica Farrell APRN CUSTOMER SERVICE REP [address] [place] [address] Nurse Practitioner Cardiovascular Disease 09/09/21 Rich Barrett MD [address] [place] [address] 690425 Physician Ophthalmology 01/21/22 Neil Kent MD [address] [place] [address] 950645 Dermatology 02/24/22 [place] [address] [facility] [address] [place], [place] 104757 Assigned Musculoskeletal Provider 03/20/22 08/13/22 Diana Desir [facility] [address] [place] [address] Assigned MTM Pharmacist 04/07/22 Jelena David OD [address] [place] [address] [place] [address] Assigned Surgical Provider 05/08/22 10/08/22 Livan Sharif MD [address], [facility]00 [place] 498915 Cardiovascular Disease 05/14/22 Livan Sharif MD [address], [facility]00 [place] 782515 Assigned Heart and Vascular Provider 06/12/22 07/23/22 Catherine Cm MD [address] [facility]00 [place] [address] Cardiovascular Disease 07/21/22 Valery Veronica, PA-C [address] [place] [address] 639505 Physician Student Specialist Dermatology 07/21/22 Catherine Cm MD [address] [facility] [place] [address] Assigned Heart and Vascular Provider 07/24/22 11/05/22 [place] [address] [place] [address] 940534 Assigned Musculoskeletal Provider 08/14/22 10/08/22 Brea Quinn APRN CUSTOMER SERVICE REP [address] [place] [address] Nurse Practitioner Dermatology 09/21/22 Brea Quinn APRN CUSTOMER SERVICE REP [address] [place] [address] Assigned Surgical Provider 10/09/22 [place] [address] [facility] 300 [place] [address] Assigned Musculoskeletal Provider 10/09/22 Livan Sharif MD [address] [facility] [address] [place] [address] Assigned Heart and Vascular Provider 11/06/22 11/12/22 Catherine Cm MD [address] [facility]00 [place] [address] Assigned Heart and Vascular Provider 11/13/22 05/27/23 Sydnie Martinez RN Personal Advocate & Liaison (PAL) Family Medicine 03/28/23 07/31/23 Alfonso Renteria MD 5775 [facility] 200 [place], [place] 317396 Assigned Neuroscience Provider 04/02/23 Cheng Todd PA-C [address] [place] [address] [id number] Assigned PCP 04/30/23 07/15/23 Radha Lomeli APRN CUSTOMER SERVICE REP [address] [place] 977315 Assigned Heart and Vascular Provider 05/28/23 Jelena David OD [address] [facility] [place] [address] Ophthalmology 06/15/23 Pao Joseph, RN Personal Advocate & Liaison (PAL) Nurse 08/01/23 11/07/23 Esha Grimm PA-C [address] [place] [address]834583 Assigned PCP 07/16/23 Valery Veronica PA-C [address] [place] [address] 510975 Physician Student Specialist Dermatology 09/19/23 Rey Tay MD [address] [place] [address] 065845 MD Gastroenterology 09/20/23 Rocky Zepeda DO [address] [place] [address] 863155 Physician Gastroenterology 09/20/23 Philip Dumont MD [address] [place] [address] 412815 Physician Ophthalmology 09/22/23 Meredith Carrera PA-C [address] [place] [address] 721335 Assigned Gastroenterology Provider 11/01/23 Neil Kent MD [address] 356450 Dermatology 11/02/23 [place] [address] [place] [address] Neurological Surgery 12/26/23 documented as of this encounter
--- OUTSIDE RECORDS SUMMARY | 2024-02-12 05:49 | XMS_ITS | Encounter Summary ---
Author Organization [place] Address [address] [place] [address] Care Team Providers Care Mold Changer Name Role Phone Lita Oseguera Unavailable Unavailable Marija Edgar APRN BELLSTAFF Primary Care Provider U Marija Bella APRN BELLSTAFF Unavailable Unavail able Keisha Dotson MD Unavailable [phone] Diana Desir [facility] Unavailable [phone] Rain Galaviz-C Unavailable [phone] Tavia Wyatt MD Unavailable Unavailable Erica Farrell APRN BELLSTAFF Unavailable Rich Barrett MD Unavailable [phone] Neil Kent MD Unavailable Roney Story DPM Unavailable [phone] Diana Desir [facility] Unavailable [phone] Jelena David OD Unavailable [phone] Livan Sharif MD Unavailable Livan Sharif MD Unavailable Catherine Cm MD Unavailable + Valery Veronica PA-C Unavailable [phone] Catherine Cm MD Unavailable + Johnny Murillo MD Unavailable [phone] Brea Quinn [employer] SUPERVISOR BELLSTAFF Unavailable [phone] Brea Quinn [employer] SUPERVISOR BELLSTAFF Unavailable [phone] Jose Francisco Johnson MD Unavailable Livan Sharif MD Unavailable Catherine Cm MD Unavailable + Sydnie Martinez RN Unavailable Unavailable Alfonso Renteria MD Unavailable [phone] Esha Grimm PA-C Primary Care Provider Cheng Todd PA-C Unavailable Radha Lomeli [employer] SUPERVISOR BELLSTAFF Unavailable Jelena David OD Unavailable Pao Joseph RN Unavailable Unavailable Esha Grimm PA-C Unavailable [phone] Valery Veronica PA-C Unavailable Rey Tay MD Unavailable Rocky Zepeda DO Unavailable Philip Dumont MD Unavailable Meredith Carrera PA-C Unavailable Neil Kent MD Unavailable Juan Pablo Emmanuel MD Unavailable Encounter Details Date Type Department Care Team (Late st Contact Info) Description 07/20/2022 [facility] [address] [facility] [address] [place] [address] Livan Sharif MD [address] [place] [address] Social History Tobacco Use Types [...] How often do you attend denominational or shinto serv ices? Never 09/22/2021 Do [...] points; Administer PHQ-9 if positive 1 05/13/2022 [facility] of Occupat ional [facility] - Occupational Stress Questionnaire Answer Date [...] a nursing home (including now)? No 09/22/2021 [place] Depression Scale Answer Date Recorded [place] Depression Score 5 01/14/2021 Last EPDS [...] Coronavirus/COVID-19? No / Unsure 07/23/2022 6:45 AM GOVERNMENT RELATIONS DIRECTOR documented as of this encounter Plan of Treatment Upcoming Encounters Date Type Department Care Team (Latest Contact Info) Description 02/14/2024 12:50 PM CDT Therapy Visit [facility] [address] [place] [address] [phone] Rustam Medina, PT [facility] [address] [place] [address] 03/06/2024 3:00 PM CDT Office Visit [facility] [place] [address] [place] [address] [address] [place] [phone] Radha Lomeli E, [employer] SUPERVISOR BELLSTAFF [address] [place], [place] 128975 03/07/2024 9:00 AM CDT Hospital Encounter [address] [phone] Rocky Zepeda DO 500 [place], [place] 433895 03/07/2024 9:00 AM CDT - 03/07/2024 9:30 AM CDT Surgery [address] [phone] Rocky Zepeda DO 500 [place], [place] 271275 Esophagoscopy, gastroscopy, duodenoscopy (EGD), combined 06/21/2024 2:00 PM GOVERNMENT RELATIONS DIRECTOR Office Visit [facility] [address] [facility], [address] [place] [address] [place] [address] [place], [place] [address] Johnny Penn MD [address] [place] [address] Scheduled Procedures Name Priority [...] documented as of this encounter Care Teams Mold Changer Relationship Specialty Start Date End Date Marija Edgar APRN BELLSTAFF PCP - General Nurse Practitioner 04/30/20 04/14/23 Esha Grimm PA-C [address] [place] [address] PCP - General Family Medicine 05/04/23 Lita Oseguera Personal Advocate & Liaison (PAL) 02/28/20 03/27/23 Marija Edgar APRN BELLSTAFF Assigned PCP 06/08/20 04/29/23 Keisha Dotson MD 9 [place] [address] Assigned Neuroscience Provider 06/04/20 04/01/23 Diana Desir [facility] [address] [place] [address] Pharmacist Pharmacist 04/17/21 Rain Galaviz PA-C [address] [place] [address] [address] [place] [address] Physician Machine Captain Dermatology 04/28/21 Tavia Wyatt MD [address] [place] [address] [address] [facility] [address] Dermatology 07/14/21 Erica Farrell APRN BELLSTAFF [address] [place] [address] Nurse Practitioner Cardiovascular Disease 09/09/21 Rich Barrett MD [address] [place] [address] 998995 Physician Ophthalmology 01/21/22 Neil Kent MD [address] [place] [address] 159445 Dermatology 02/24/22 [place] [address] [facility] [address] [place], [place] 891107 Assigned Musculoskeletal Provider 03/20/22 08/13/22 Diana Desir [facility] [address] [place] [address] Assigned MTM Pharmacist 04/07/22 Jelena David OD [address] [place] [address] [place] [address] Assigned Surgical Provider 05/08/22 10/08/22 Livan Sharif MD [address], [facility]00 [place] 278915 Cardiovascular Disease 05/14/22 Livan Sharif MD [address], [facility]00 [place] 638155 Assigned Heart and Vascular Provider 06/12/22 07/23/22 Catherine Cm MD [address] [facility] [place] [address] Cardiovascular Disease 07/21/22 Valery Veronica, PA-C [address] [place] [address] 036365 Physician Machine Captain Dermatology 07/21/22 Catherine Cm MD [address] [facility]00 [place] [address] Assigned Heart and Vascular Provider 07/24/22 11/05/22 [place] [address] [place] [address] 759274 Assigned Musculoskeletal Provider 08/14/22 10/08/22 Brea Quinn APRN BELLSTAFF [address] [place] [address] Nurse Practitioner Dermatology 09/21/22 Brea Quinn APRN BELLSTAFF [address] [place] [address] Assigned Surgical Provider 10/09/22 [place] [address] [facility] [address] [place] [address] Assigned Musculoskeletal Provider 10/09/22 Livan Sharif MD [address] [facility] [address] [place] [address] Assigned Heart and Vascular Provider 11/06/22 11/12/22 Catherine Cm MD [address] [facility] [place] [address] Assigned Heart and Vascular Provider 11/13/22 05/27/23 Sydnie Martinez RN Personal Advocate & Liaison (PAL) Family Medicine 03/28/23 07/31/23 Alfonso Renteria MD 5775 [facility] 200 [place], [place] 057206 Assigned Neuroscience Provider 04/02/23 Cheng Todd PA-C [address] [place] [address] [id number] Assigned PCP 04/30/23 07/15/23 Radha Lomeli APRN BELLSTAFF [address] [place] 687895 Assigned Heart and Vascular Provider 05/28/23 Jelena David OD [address] [place] [address] Ophthalmology 06/15/23 Pao Joseph, RN Personal Advocate & Liaison (PAL) Nurse 08/01/23 11/07/23 Esha Grimm PA-C [address] [place] [address]83 Assigned PCP 07/16/23 Valery Veronica PA-C [address] [place] [address] 514075 Physician Machine Captain Dermatology 09/19/23 Rey Tay MD [address] [place] [address] 390025 MD Gastroenterology 09/20/23 Rocky Zepeda DO [address] [place] [address] 270135 Physician Gastroenterology 09/20/23 Philip Dumont MD [address] [place] [address] 865035 Physician Ophthalmology 09/22/23 Meredith Carrera PA-C [address] [place] [address] 661855 Assigned Gastroenterology Provider 11/01/23 Neil Kent MD [address] 850210 Dermatology 11/02/23 [place] [address] [place] [address] Neurological Surgery 12/26/23 documented as of this encounter
--- OUTSIDE RECORDS SUMMARY | 2024-02-12 05:49 | XMS_ITS | Encounter Summary ---
Author Organization [place] Address [address] [place] [address] Care Team Providers Care Insurance Marketing Rep Name Role Phone Lita Oseguera Unavailable Unavailable Marija Edgar APRN AIRPLANE FIRST OFFICER Primary Care Provider U Marija Bella APRN AIRPLANE FIRST OFFICER Unavailable Unavail able Keisha Dotson MD Unavailable [phone] Diana Desir [facility] Unavailable [phone] Rain Galaviz PA-C Unavailable [phone] Tavia Wyatt MD Unavailable Unavailable Erica Farrell APRN AIRPLANE FIRST OFFICER Unavailable Rich Barrett MD Unavailable [phone] Neil Kent MD Unavailable Diana Desir [facility] Unavailable [phone] Livan Sharif MD Unavailable Catherine Cm MD Unavailable + Valery Veronica PA-C Unavailable [phone] Catherine Cm MD Unavailable + Brea Quinn APRN AIRPLANE FIRST OFFICER Unavailable [phone] Brea Quinn APRN AIRPLANE FIRST OFFICER Unavailable [phone] Jose Francisco Johnson MD Unavailable Lvian Sharif MD Unavailable Catherine Cm MD Unavailable + Sydnie Martinez RN Unavailable Unavailable Alfonso Renteria MD Unavailable [phone] Esha Grimm PA-C Primary Care Provider [phone] Cheng Todd PA-C Unavailable Armani Radha Stovall APRN AIRPLANE FIRST OFFICER Unavailable Jelena David OD Unavailable Pao Joseph RN Unavailable Unavailable Esha Grimm PA-C Unavailable [phone] Valery Veronica PA-C Unavailable Rey Tay MD Unavailable Rocky Zepeda DO Unavailable Philip Dumont MD Unavailable [phone] Meredith Carrera PA-C Unavailable [phone] Neil Kent MD Unavailable Juan Pablo Emmanuel MD Unavailable [phone] Encounter Details Date Type Department Care Team (Late st Contact Info) Description 10/22/2022 [facility] Medical Advice [facility] [address] [place], [place] [address] [place] [address] [facility] 300 [place] [address] Social History Tobacco Use Types Packs/Day Years [...] How often do you attend anabaptism or restorationist serv ices? Never 09/22/2021 Do [...] Answer Date Recorded PHQ-2 Score 1 10/11/2022 [facility] - [...] in a longterm (including now)? No 09/22/2021 [place] Depression Scale Answer Date Recorded [place] Depression Score 5 01/14/2021 Last EPDS Self [...] Description 02/14/2024 12:50 PM CDT Therapy Visit [address] [address] Rustam Medina, PT [facility] [address] [place] [address] 03/06/2024 3:00 PM CDT Office Visit [facility] [place] [address] [facility] [address] [place] [phone] Radha Lomeli APRN AIRPLANE FIRST OFFICER [address] [place] [address] 03/07/2024 9:00 AM CDT Hospital Encounter [address] [phone] Rocky Zepeda DO 500 [place], [place] 9[address]355 03/07/2024 9:00 AM CDT - 03/07/2024 9:30 AM CDT Surgery [address] [phone] Rocky Zepeda DO 500 [place], [place] 0[address]45 Esophagoscopy, gastroscopy, duodenoscopy (EGD), combined 06/21/2024 2:00 PM MACHINE MAINTENANCE SUPERVISOR Office Visit [facility] Neurology [facility] [address] [facility], [address] [place] [address] [place] [address] [place] [address] Johnny Penn MD 1927 [facility] [place] [address] Scheduled Procedures Name Priority Associated Diagnoses [...] as of this encounter Care Teams Insurance Marketing Rep Relationship Specialty Start Date End Date Marija Edgar APRN AIRPLANE FIRST OFFICER PCP - General Nurse Practitioner 04/30/20 04/14/23 Esha Grimm PA-C [address] [place] [address] PCP - General Family Medicine 05/04/23 Lita Oseguera Personal Advocate & Liaison (PAL) 02/28/20 03/27/23 Marija Edgar APRN AIRPLANE FIRST OFFICER Assigned PCP 06/08/20 04/29/23 Keisha Dotson MD 909 [place] [address] Assigned Neuroscience Provider 06/04/20 04/01/23 Diana Desir, [facility] [address] [place] [address] Pharmacist Pharmacist 04/17/21 Rain Galaviz PA-C [address] [place] [address] [address] [place] [address] Physician Airways Control Specialist Dermatology 04/28/21 Tavia Wyatt MD [address] [place] [address] [address] [facility] [place] [address] Dermatology 07/14/21 Erica Farrell APRN AIRPLANE FIRST OFFICER [address] [place] [address] Nurse Practitioner Cardiovascular Disease 09/09/21 Rich Barrett MD [address] 761525 Physician Ophthalmology 01/21/22 Neil Kent MD 500 [place], [place] 379075 Dermatology 02/24/22 Diana Desir, [facility] [place] [address] Assigned MTM Pharmacist 04/07/22 Livan Sharif MD [address] [place] [address] Cardiovascular Disease 05/14/22 Catherine Cm MD [address] [place] 0[address]35 Cardiovascular Disease 07/21/22 Valery Veronica, PAUcheC [address] [place] [address] 706365 Physician Airways Control Specialist Dermatology 07/21/22 Catherine Cm MD [address] [place] 963265 Assigned Heart and Vascular Provider 07/24/22 11/05/22 Brea Quinn APRN AIRPLANE FIRST OFFICER [address] [place] [address] 824695 Nurse Practitioner Dermatology 09/21/22 Brea Quinn APRN AIRPLANE FIRST OFFICER [address] [place] [address] [place] 199942 Assigned Surgical Provider 10/09/22 [place] [address] [facility] [place] [address] Assigned Musculoskeletal Provider 10/09/22 Livan Sharif MD [address] [place] [address] Assigned Heart and Vascular Provider 11/06/22 11/12/22 Catherine Cm MD [address] [place] [address] Assigned Heart and Vascular Provider 11/13/22 05/27/23 Sydnie Martinez RN Personal Advocate & Liaison (PAL) Family Medicine 03/28/23 07/31/23 Alfonso Renteria MD 5775 [facility] [address] [place] [address] Assigned Neuroscience Provider 04/02/23 Cheng Todd PA-C [address] [place] [address] [id number] Assigned PCP 04/30/23 07/15/23 Radha Lomeli, ARLENE AIRPLANE FIRST OFFICER [address] [place] [address] Assigned Heart and Vascular Provider 05/28/23 Jelena David OD [address] [facility] [place] [address] Ophthalmology 06/15/23 Pao Joseph, VJ Personal Advocate & Liaison (PAL) Nurse 08/01/23 11/07/23 Esha Grimm PA-C [address] [place] [address]-86607283 Assigned PCP 07/16/23 Valery Veronica PA-C [address]09 [place], [place] 782835 Physician Airways Control Specialist Dermatology 09/19/23 Rey Tay MD [address] [place] [address] Gastroenterology 09/20/23 Rocky Zepeda DO [address] [place] [address] Physician Gastroenterology 09/20/23 Philip Dumont MD [address] [place] [address] Physician Ophthalmology 09/22/23 Meredith Carrera, PA-C [address] [place] [address] Assigned Gastroenterology Provider 11/01/23 Neil Kent MD [address] [place] [address] Dermatology 11/02/23 [place] [address] [place] [address] Neurological Surgery 12/26/23 documented as of this encounter
--- OUTSIDE RECORDS SUMMARY | 2024-02-12 05:49 | XMS_ITS | Encounter Summary ---
Author Organization [place] Address [address] [place] [address] Care Team Providers Care Mink Slicer Name Role Phone Lita Oseguera Unavailable Unavailable Marija Edgar APRN PAINT GRINDER Primary Care Provider U Marija Bella APRN PAINT GRINDER Unavailable Unavail able Keisha Dotson MD Unavailable [phone] Diana Desir [facility] Unavailable [phone] Rain Galaviz PA-C Unavailable [phone] Tavia Wyatt MD Unavailable Unavailable Erica Farrell APRN PAINT GRINDER Unavailable Rich Barrett MD Unavailable [phone] Neil Kent MD Unavailable Diana Desir [facility] Unavailable [phone] Livan Sharif MD Unavailable Catherine Cm MD Unavailable + Valery Veronica PA-C Unavailable [phone] Catherine Cm MD Unavailable + Brea Quinn APRN PAINT GRINDER Unavailable [phone] Brea Quinn APRN PAINT GRINDER Unavailable [phone] Jose Francisco Johnson MD Unavailable Livan Sharif MD Unavailable Catherine Cm MD Unavailable + Sydnie Martinez RN Unavailable Unavailable Alfonso Renteria MD Unavailable [phone] Esha Grimm PA-C Primary Care Provider [phone] Cheng Todd PA-C Unavailable Radha Lomeli APRN PAINT GRINDER Unavailable Jelena David Radha OD Unavailable [phone] Pao Joseph RN Unavailable Unavailable Esha Grimm PA-C Unavailable [phone] Valery Veronica PA-C Unavailable Rey Tay MD Unavailable Rocky Zepeda DO Unavailable Philip Dumont MD Unavailable [phone] Meredith Carrera PA-C Unavailable [phone] Neli Kent MD Unavailable Juan Pablo Emmanuel MD Unavailable Reason for Visit * Reason Onset Date Comments Pt. Information/instruction 10/11/2022 Appointment 10/11/2022 Encounter Details Date Type Department Care Team (Late st Contact Info) Description 10/11/2022 Telephone [facility] Sports Medicine Clinic [place] [address] [facility] [address] [place] [address] [place] [address] [facility] [address] [place] [address] Pt. Information/instructio n; Appointment Social [...] How often do you attend congregational or baptist serv ices? Never 09/22/2021 Do [...] Date Recorded PHQ-2 Score 1 10/11/2022 [facility]at ional Health - [...] a group home (including now)? No 09/22/2021 [place] Depression Scale Answer Date Recorded [place] Depression Score 5 01/14/2021 Last EPDS Self [...] voicemail: yes Reason for Call: Other: [facility] is wondering if she can also be conference in on patient's upcoming appointment (10/27). Action Taken: Other: [facility] Sports Medicine Travel Screening: Not Applicable [...] Reason for Call: Other: Please contact patient's forming machine adjusterRosalva so she can authorize patient's MRI. Rosalva's contact info: phone# [phone] fax# [phone] Action Taken: Other: [facility] Sports Medicine Travel Screening: Not Applicable documented in this encounter Plan of Treatment Upcoming Encounters Date Type Department Care Team (Latest Contact Info) Description 02/14/2024 12:50 PM CDT Therapy Visit [facility] [address] [place] [address] Rustam Medina, PT [facility] [address] [place] [address] 03/06/2024 3:00 PM CDT Office Visit [facility] Heart [facility] [address] [facility] [address] [place] [phone] Radha Lomeli, STAINED GLASS INSTALLER PAINT GRINDER [address] [place], [place] [address] 03/07/2024 9:00 AM CDT Hospital Encounter [facility] [address] [facility] 5th [place] [phone] Rocky Zepeda DO 500 [place], [place] [phone] 03/07/2024 9:00 AM CDT - 03/07/2024 9:30 AM CDT Surgery [facility] [address] [place] [phone] Rocky Zepeda DO 500 [place], [place] 131785 Esophagoscopy, gastroscopy, duodenoscopy (EGD), combined 06/21/2024 2:00 PM PARALLEL COMPUTING SOFTWARE ENGINEER Office Visit [facility] [place] [address] [facility], [address] [place] [phone] [place] [address] [place], [place] [address] Johnny Penn MD 6545 [place], [place] 358335 Scheduled Procedures Name Priority Associated Diagnoses Date/Ti [...] documented as of this encounter Care Teams Mink Slicer Relationship Specialty Start Date End Date Marija Edgar APRN PAINT GRINDER PCP - General Nurse Practitioner 04/30/20 04/14/23 Esha Girmm PAUcheC [address] [place] [phone] PCP - General Family Medicine 05/04/23 Lita Oseguera Personal Advocate & Liaison (PAL) 02/28/20 03/27/23 Marija Edgar APRN PAINT GRINDER Assigned PCP 06/08/20 04/29/23 Keisha Dotson MD 909 [place], [place] 496475 Assigned Neuroscience Provider 06/04/20 04/01/23 Diana Desir [facility] 3033 [place], [place] 0[address] Pharmacist Pharmacist 04/17/21 Rain Galaviz PA-C [address] [place] [address] [address] [place] [address] Physician Bookmobile Driver Dermatology 04/28/21 Tavia Wyatt MD [address] [place] [address] [place] [address] Dermatology 07/14/21 Erica Farrell APRN PAINT GRINDER [address] [place], [place] [address] Nurse Practitioner Cardiovascular Disease 09/09/21 Rich Barrett MD [address] 034815 Physician Ophthalmology 01/21/22 Neil Kent MD 500 [place], [place] [address]75 Dermatology 02/24/22 Diana Desir, [facility] [address] [place] [address] Assigned MTM Pharmacist 04/07/22 Livan Sharif MD [address] [place] 6[address] Cardiovascular Disease 05/14/22 Catherine Cm MD [address] [place] [address] Cardiovascular Disease 07/21/22 Valery Veronica PA-C 909 [place] [address] Physician Bookmobile Driver Dermatology 07/21/22 Catherine Cm MD [address] [place] [address] Assigned Heart and Vascular Provider 07/24/22 11/05/22 Brea Quinn APRN PAINT GRINDER 500 [place], [place] 318545 Nurse Practitioner Dermatology 09/21/22 Brea Quinn APRN PAINT GRINDER [address] [place], [place] 444542 Assigned Surgical Provider 10/09/22 [place] [address] [place] [address] 984117 Assigned Musculoskeletal Provider 10/09/22 Livan Sharif MD [address] [place] [address] Assigned Heart and Vascular Provider 11/06/22 11/12/22 Catherine Cm MD [address] [place] 7037[address] Assigned Heart and Vascular Provider 11/13/22 05/27/23 Sydnie Martinez, VJ Personal Advocate & Liaison (PAL) Family Medicine 03/28/23 07/31/23 Alfonso Renteria MD [address] [place] [address] Assigned Neuroscience Provider 04/02/23 Cheng Todd PA-C [address] [place] [address] Assigned PCP 04/30/23 07/15/23 Radha Lomeli APRN PAINT GRINDER [address] [facility] [address] [place] [address] Assigned Heart and Vascular Provider 05/28/23 Jelena David OD [address] [place] [address] Ophthalmology 06/15/23 Pao Joseph, VJ Personal Advocate & Liaison (PAL) Nurse 08/01/23 11/07/23 Esha Grimm PA-C [address] [place] [address]396483 Assigned PCP 07/16/23 Valery Veronica PA-C [address] [place] [address] 834055 Physician Bookmobile Driver Dermatology 09/19/23 Rey Tay MD [address] [place] [address] 132485 Gastroenterology 09/20/23 Rocky Zepeda DO [address] [place] [address] 305265 Physician Gastroenterology 09/20/23 Philip Dumont MD 516 [place] [address] Physician Ophthalmology 09/22/23 Meredith Carrera PA-C 9 [place] [address] Assigned Gastroenterology Provider 11/01/23 Neil Kent MD [address] [address] Dermatology 11/02/23 [place] [address] [place] [address] Neurological Surgery 12/26/23 documented as of this encounter
--- OUTSIDE RECORDS SUMMARY | 2024-02-12 05:49 | XMS_ITS | Encounter Summary ---
Author Organization [place] Address [address] [place] [address] Care Team Providers Care General Operations Agent Name Role Phone Lita Oseguera Unavailable Unavailable Marija Edgar APRN MANAGER ELECTRICAL Primary Care Provider U Marija Bella APRN MANAGER ELECTRICAL Unavailable Unavail able Keisha Dotson MD Unavailable [phone] Diana Desir [facility] Unavailable [phone] Rain Galaviz PA-C Unavailable [phone] Tavia Wyatt MD Unavailable Unavailable Erica Farrell APRN MANAGER ELECTRICAL Unavailable Rich Barrett MD Unavailable [phone] Neil Kent MD Unavailable Diana Desir [facility] Unavailable [phone] Livan Sharif MD Unavailable Catherine Cm MD Unavailable + Vlaery Veronica PA-C Unavailable [phone] Catherine Cm MD Unavailable + Brea Quinn APRN MANAGER ELECTRICAL Unavailable [phone] Brea Quinn APRN MANAGER ELECTRICAL Unavailable [phone] Jose Francisco Johnson MD Unavailable Livan Sharif MD Unavailable Catherine Cm MD Unavailable + Sydnie Martinez RN Unavailable Unavailable Alfonso Renteria MD Unavailable [phone] Esha GrimmC Primary Care Provider [phone] Cheng Todd PA-C Unavailable Armani Radha Stovall APRN MANAGER ELECTRICAL Unavailable Jelena David OD Unavailable [phone] Pao Joseph RN Unavailable Unavailable Esha Grimm-C Unavailable [phone] Valery Veronica PA-C Unavailable Rey Tay [...] (Late st Contact Info) Description 10/12/2022 Telephone [facility] [address] [place] [address] Lauren Claudio PA-C [address] [place] [address] Prior Auth - Medication (Lidocaine [...] How often do you attend anglican or congregational serv ices? Never 09/22/2021 Do [...] Answer Date Recorded PHQ-2 Score 1 10/11/2022 [facility] [place] [facility] - Occupational Stress [...] in a prison (including now)? No 09/22/2021 [place] Depression Scale Answer Date Recorded [place] Depression Score 5 01/14/2021 Last EPDS Self [...] Description 02/14/2024 12:50 PM CDT Therapy Visit [facility] [address] [place] [address] Rustam Medina, PT [facility] [address] [place] [address] 03/06/2024 3:00 PM CDT Office [facility] [place] [address] [facility] [address] [place] [address] Radha Lomeli, WIND FIELD SERVICE MANAGER MANAGER ELECTRICAL [address] [place] [address] 03/07/2024 9:00 AM CDT Hospital Encounter [facility] [place] [address] [facility] 5th [place] [phone] Rocky Zepeda, 500 [place], [place] [address] 03/07/2024 9:00 AM CDT - 03/07/2024 9:30 AM CDT Surgery [facility] [place] [address] [facility] 5th [place] [phone] Rocky Zepeda DO 500 [place], [place] 2665[address] Esophagoscopy, gastroscopy, duodenoscopy (EGD), combined 06/21/2024 2:00 PM AMPOULE FILLER Office Visit [facility] Neurology Clinics - [place] [address] [place] [address], [address] [place] [phone] [place] [address] [place] 47[address] Johnny Penn MD [address] [place] [address] Scheduled Procedures Name Priority Associated Diagnoses Date/Ti [...] as of this encounter Care Teams General Operations Agent Relationship Specialty Start Date End Date Marija Edgar APRN MANAGER ELECTRICAL PCP - General Nurse Practitioner 04/30/20 04/14/23 Esha Grimm PA-C [address] [place] [address] PCP - General Family Medicine 05/04/23 Lita Oseguera Personal Advocate & Liaison (PAL) 02/28/20 03/27/23 Marija Edgar APRN MANAGER ELECTRICAL Assigned PCP 06/08/20 04/29/23 Keisha Dotson MD 909 [place] [address] Assigned Neuroscience Provider 06/04/20 04/01/23 Diana Desir, [facility] 3033 [place] [address] Pharmacist Pharmacist 04/17/21 Rain Galaviz PA-C [address] [place] [address] [place] [address] Physician Half Backer Dermatology 04/28/21 Tavia Wyatt MD [address] [place] [address] [place] [address] Dermatology 07/14/21 Erica Farrell APRN MANAGER ELECTRICAL [address] [facility] [address] [place] [address] Nurse Practitioner Cardiovascular Disease 09/09/21 Rich Barrett MD 516 [facility] [address] [place], [place] [phone] Physician Ophthalmology 01/21/22 Neil Kent MD 500 [place], [place] 963215 MD Dermatology 02/24/22 Diana Desir, [facility] [address] [place], [place] [address]346 Assigned MTM Pharmacist 04/07/22 Livan Sharif MD [address] [place], [place] 7429[address] Cardiovascular Disease 05/14/22 Catheirne Cm MD [address] [place], [place] [address] Cardiovascular Disease 07/21/22 Valery Veronica, PA-C 909 [place], [place] 9[address] Physician Half Backer Dermatology 07/21/22 Catherine Cm MD [address] [place] 288175 Assigned Heart and Vascular Provider 07/24/22 11/05/22 Brea Quinn APRN MANAGER ELECTRICAL 500 [place], [place] [address]395 Nurse Practitioner Dermatology 09/21/22 Brea Quinn APRN MANAGER ELECTRICAL [address] [place] [address] Assigned Surgical Provider 10/09/22 [place] [address] [facility] [address] [place] [address] Assigned Musculoskeletal Provider 10/09/22 Livan Sharif MD [address] [facility] [address] [place] 048665 Assigned Heart and Vascular Provider 11/06/22 11/12/22 Catherine Cm MD [address] [place] 642495 Assigned Heart and Vascular Provider 11/13/22 05/27/23 JuanSydnie malik, RN Personal Advocate & Liaison (PAL) Family Medicine 03/28/23 07/31/23 Alfonso Renteria MD [address] [facility] 200 [place] [address] Assigned Neuroscience Provider 04/02/23 Cheng Todd PA-C [address] [place] [address] Assigned PCP 04/30/23 07/15/23 Radha Lomeli APRN MANAGER ELECTRICAL [address] [place] [address] Assigned Heart and Vascular Provider 05/28/23 Jelena David OD [address] [facility] [place] [address] Ophthalmology 06/15/23 Pao Joseph, RN Personal Advocate & Liaison (PAL) Nurse 08/01/23 11/07/23 Esha Grimm PA-C [address] [place] [phone] Assigned PCP 07/16/23 Valery Veronica PA-C [address] [place] [address] 122395 Physician Half Backer Dermatology 09/19/23 Rey Tay MD [address] [place] [address] 009295 MD Gastroenterology 09/20/23 Rocky Zepeda DO [address] [place] [address] 162195 Physician Gastroenterology 09/20/23 Philip Dumont MD [address] [place] [address] 562435 Physician Ophthalmology 09/22/23 Meredith Carrera PA-C [address] [place] [address] 515665 Assigned Gastroenterology Provider 11/01/23 Neil Kent MD [address] [address] Dermatology 11/02/23 [place] [address] [place] [address] Neurological Surgery 12/26/23 documented as of this encounter
--- OUTSIDE RECORDS SUMMARY | 2024-02-12 05:50 | XMS_ITS | Encounter Summary ---
Author Organization [facility] Address [address] [place] [address] Care Team Providers Care Payroll Examiner Name Role Phone Lita Oseguera Unavailable Unavailable Marija Edgar APRN SUBSTATION ENGINEER Primary Care Provider U Marija Bella APRN SUBSTATION ENGINEER Unavailable Unavail able Keisha Dotson MD Unavailable [phone] Diana Desir [facility] Unavailable [phone] Rain Galaviz-C Unavailable Tavia Wyatt MD Unavailable Unavailable Erica Farrell APRN SUBSTATION ENGINEER Unavailable Tavia Wyatt MD Unavailable Unavailable Rich Barrett MD Unavailable [phone] Neil Kent MD Unavailable Roney StoryM Unavailable [phone] Diana Desir [facility] Unavailable [phone] Jelena David OD Unavailable [phone] Galo Burrell MD Unavailable Unavailable Livan Sharif MD Unavailable Livan Sharif MD Unavailable Catherine Cm MD Unavailable + Valery Veronica PA-C Unavailable [phone] Catherine Cm MD Unavailable + Johnny Murillo MD Unavailable [phone] Brea Quinn SLIP SHEETER SUBSTATION ENGINEER Unavailable [phone] Brea Quinn SLIP SHEETER SUBSTATION ENGINEER Unavailable [phone] Jose Francisco Johnson MD Unavailable Livan Sharif MD Unavailable Catherine Cm MD Unavailable + Sydnie Martinez RN Unavailable Unavailable Alfonso Renteria MD Unavailable [phone] Esha Grimm PA-C Primary Care Provider Cheng Todd PA-C Unavailable Radha Lomeli SLIP SHEETER SUBSTATION ENGINEER Unavailable Jelena David OD Unavailable Pao Joseph RN Unavailable Unavailable Esha Grimm PA-C Unavailable [phone] Valery Veronica PA-C Unavailable Rey Tay MD Unavailable Rocky Zepeda DO Unavailable Philip Dumont MD Unavailable Meredith Carrera PA-C Unavailable Neil Kent MD Unavailable Juan Pablo Emmanuel MD Unavailable [phone] Encounter Details Date Type Department Care Team (Late st Contact Info) Description 04/20/2022 MyC Medical Advice [facility] Heart [address] [place] [phone] Margaret Rendon, RN Social History Tobacco Use [...] How often do you attend episcopal or samaritan serv ices? Never 09/22/2021 Do you belong [...] Answer Date Recorded PHQ-2 Score 2 12/18/2021 [facility] - Occupational Stress Questionnaire Answer [...] in a fpc (including now)? No 09/22/2021 [place] Depression Scale Answer Date Recorded [place] Depression Score 5 01/14/2021 Last EPDS Self [...] PM CDT Therapy Visit [facility] Rehabilitation Services [place] [address] [place] [address] Rustam Medina, PT [facility] [address] [place] [address] 03/06/2024 3:00 PM CDT Office Visit [facility] [place] [address] [facility] [address] [place] [phone] Radha Lomeli, SLIP SHEETER SUBSTATION ENGINEER [address] [facility] [address] [place] [address] 03/07/2024 9:00 AM CDT Hospital Encounter [facility] [address] [place] [address] [address] [place] [phone] Rocky Zepeda DO 500 [place], [place] [address]205 03/07/2024 9:00 AM CDT - 03/07/2024 9:30 AM CDT Surgery [facility] [address] [place] [address] [address] [place] [phone] Rocky Zepeda DO 500 [place], [place] [address] Esophagoscopy, gastroscopy, duodenoscopy (EGD), combined 06/21/2024 2:00 PM MANAGER SWITCH Office Visit [facility] Neurology Clinics [facility] [address] [facility], [address] [place] [phone] [place] [address] [place] [address] Johnny Penn MD [address] [place] [address] Scheduled Procedures Name Priority Associated Diagnoses Date/Ti md ESOPHAGOGASTRODUODENOSCOPY Eosinophilic esophagitis Esophageal dysphagia 03/07/2024 9:00 AM CDT documented as of this encounter Visit Diagnoses Not on filedocumented in this encounter Additional Health Concerns Infection Onset Date Last Indicated Resolved Time Rule Out COVID-19 04/26/2022 04/26/2022 04/26/2022 6:47 AM CDT Rule Out COVID-19 05/17/2022 05/17/2022 05/17/2022 10:20 PM MANAGER SWITCH Rule Out COVID-19 06/09/2022 06/09/2022 06/09/2022 9:35 AM MANAGER SWITCH COVID-19 06/09/2022 06/09/2022 06/30/2022 11:4 1 PM MANAGER SWITCH Rule Out COVID-19 11/10/2022 11/10/2022 11/11/2022 12:17 PM CDT Rule Out COVID-19 03/07/2023 03/07/2023 03/07/2023 1:20 PM CDT Rule Out COVID-19 12/26/2023 12/26/2023 12/26/2023 9:50 AM CDT Assessment Noted Time PHQ-9 Depression Total Score: 2 12/19/19 22 2:50 PM CDT documented as of this encounter Care Teams Payroll Examiner Relationship Specialty Start Date End Date Marija Edgar APRN SUBSTATION ENGINEER PCP - General Nurse Practitioner 04/30/20 04/14/23 Esha Grimm PA-C [address] [facility] [place] [address] PCP - General Family Medicine 05/04/23 Lita Oseguera Personal Advocate & Liaison (PAL) 02/28/20 03/27/23 Marija Edgar APRN SUBSTATION ENGINEER Assigned PCP 06/08/20 04/29/23 Keisha Dotson MD 909 [place] [address] Assigned Neuroscience Provider 06/04/20 04/01/23 Diana Desir, [facility] [address] [place], [place] [address] Pharmacist Pharmacist 04/17/21 Rain Galaviz PA-C [address] [place] [address] DR RAZO [facility] [place] [address] Physician Fiberglass Product Tester Dermatology 04/28/21 Tavia Wyatt MD [address] [place] [address] DR RAZO [facility] [place] [address] Dermatology 07/14/21 Erica Farrell APRN SUBSTATION ENGINEER [address] [place] [address] Nurse Practitioner Cardiovascular Disease 09/09/21 Tavia Wyatt MD Assigned Surgical Provider 11/29/21 05/07/22 Rich Barrett MD [address] [id number] Physician Ophthalmology 01/21/22 Neil Kent MD [address] [place] [address] 240905 Dermatology 02/24/22 Roney Story DPM [address] [facility] [address] [place], [place] 5968[address] Assigned Musculoskeletal Provider 03/20/22 08/13/22 Diana Desir, [facility] [address] [facility] [place], [place] [address] Assigned MTM Pharmacist 04/07/22 Jelena David OD [address] [place] [address] Assigned Surgical Provider 05/08/22 10/08/22 Galo Burrell MD Assigned Heart and Vascular Provider 04/17/22 06/11/22 Livan Sharif MD [address] [place], [place] [address] Cardiovascular Disease 05/14/22 Livan Sharif MD [address] [place] [address] Assigned Heart and Vascular Provider 06/12/22 07/23/22 Catherine Cm MD [address] [place], [place] [address] Cardiovascular Disease 07/21/22 Valery Veronica, PAUcheC [address] [place] [address] Physician Fiberglass Product Tester Dermatology 07/21/22 Catherine Cm MD [address] [place] [address] Assigned Heart and Vascular Provider 07/24/22 11/05/22 Johnny Murillo MD [address] [place] [address] Assigned Musculoskeletal Provider 08/14/22 10/08/22 Brea Quinn APRN SUBSTATION ENGINEER 500 [place], [place] 796785 Nurse Practitioner Dermatology 09/21/22 Brea Quinn APRN SUBSTATION ENGINEER [address] [facility] [place] [address] Assigned Surgical Provider 10/09/22 [place] [address] [facility] [address] [place], [place] 978767 Assigned Musculoskeletal Provider 10/09/22 Livan Sharif MD [address] [place] [address] Assigned Heart and Vascular Provider 11/06/22 11/12/22 Catherine Cm MD [address] [place] 34[address] Assigned Heart and Vascular Provider 11/13/22 05/27/23 Sydnie Martinez RN Personal Advocate & Liaison (PAL) Family Medicine 03/28/23 07/31/23 Alfonso Renteria MD [address] [facility] [address] [place] [address] Assigned Neuroscience Provider 04/02/23 Cheng Todd PA-C [address] [place] [address] Assigned PCP 04/30/23 07/15/23 Radha Lomeli APRN SUBSTATION ENGINEER [address] [facility] [address] [place] [address] Assigned Heart and Vascular Provider 05/28/23 Jelena David OD [address] [place] [address] Ophthalmology 06/15/23 Pao Joseph, VJ Personal Advocate & Liaison (PAL) Nurse 08/01/23 11/07/23 Esha Grimm PA-C [address] [place] [address] Assigned PCP 07/16/23 Valery Veronica PA-C [address] [place] [address] 632635 Physician Fiberglass Product Tester Dermatology 09/19/23 Rey Tay MD [address] [place] [address] 102045 Gastroenterology 09/20/23 Rocky Zepeda DO [address] [place] [address] 818285 Physician Gastroenterology 09/20/23 Philip Dumont MD 516 [place] [address] Physician Ophthalmology 09/22/23 Meredith Carrera PA-C 9 [place] [address] Assigned Gastroenterology Provider 11/01/23 Neil Kent MD [address] [address] Dermatology 11/02/23 [place] [address] [place] [address] Neurological Surgery 12/26/23 documented as of this encounter
--- OUTSIDE RECORDS SUMMARY | 2024-02-12 05:50 | XMS_ITS | Encounter Summary ---
Author Organization [facility] Address [address] [place] [address] Care Team Providers Care Exceptional Student Education Teacher Name Role Phone Lita Oseguera Unavailable Unavailable Marija Edgar APRN CREATIVE SERVICES COORDINATOR Primary Care Provider U Marija Bella APRN CREATIVE SERVICES COORDINATOR Unavailable Unavail able Keisha Dotson MD Unavailable [phone] Diana Desir [facility] Unavailable [phone] Rain Galaviz PA-C Unavailable Tavia Wyatt MD Unavailable Unavailable Erica Farrell HOTEL DIRECTOR CREATIVE SERVICES COORDINATOR Unavailable Tavia Wyatt MD Unavailable Unavailable Rich Barrett MD Unavailable [phone] Neil Kent MD Unavailable Roney Story DPM Unavailable [phone] Erica Farrell HOTEL DIRECTOR CREATIVE SERVICES COORDINATOR Unavailable Diana Desir [facility] Unavailable [phone] Jelena David OD Unavailable Galo Burrell MD Unavailable Unavailable Livan Sharif MD Unavailable Livan Sharif MD Unavailable Catherine Cm MD Unavailable + Valery Veronica PA-C Unavailable [phone] Catherine Cm MD Unavailable + Johnny Murillo MD Unavailable [phone] Brea Quinn HOTEL DIRECTOR CREATIVE SERVICES COORDINATOR Unavailable [phone] Brea Quinn HOTEL DIRECTOR CREATIVE SERVICES COORDINATOR Unavailable [phone] Jose Francisco Johnson MD Unavailable Livan Sharif MD Unavailable Catherine Cm MD Unavailable + Sydnie Martinez RN Unavailable Unavailable Alfonso Renteria MD Unavailable [phone] Esha Grimm PA-C Primary Care Provider Cheng Todd PA-C Unavailable Radha Lomeli HOTEL DIRECTOR CREATIVE SERVICES COORDINATOR Unavailable [phone] Jelena David OD Unavailable Pao Joseph RN Unavailable Unavailable Esha Grimm PA-C Unavailable [phone] Valery Veronica PA-C Unavailable [phone] Rey Tay MD Unavailable Rocky Zepeda DO Unavailable Philip Dumont MD Unavailable [phone] Meredith Carrera PA-C Unavailable [phone] Neil [place] MD Unavailable Juan Pablo Emmanuel MD Unavailable [phone] Encounter Details Date Type Department Care Team (Late st Contact Info) Description 04/07/2022 [facility] [address] [address] ThangDiana, [facility] [address] [place] [address] Social History Tobacco Use Types Packs/Day Years [...] How often do you attend uatsdin or faith serv ices? Never 09/22/2021 Do [...] in a snf (including now)? No 09/22/2021 [place] Depression Scale Answer Date Recorded [place] Depression Score 5 01/14/2021 Last EPDS Self [...] PM CDT Therapy Visit [facility] Services [address] [phone] Rustam Medina, PT [facility] [address] [place] [address] 03/06/2024 3:00 PM CDT Office Visit [facility] [place] [address] [place] [address] [address] [place] [phone] Radha Lomeli, HOTEL DIRECTOR CREATIVE SERVICES COORDINATOR [address] [place] [address] 03/07/2024 9:00 AM CDT Hospital Encounter [address] [phone] Rocky Zepeda DO 500 [place] [address] 03/07/2024 9:00 AM CDT - 03/07/2024 9:30 AM CDT Surgery [address] [phone] Rocky Zepeda DO 500 [place], [place] 259975 Esophagoscopy, gastroscopy, duodenoscopy (EGD), combined 06/21/2024 2:00 PM SUPERVISOR ENGINE ASSEMBLY Office Visit [facility] Neurology [facility] [address] [facility], [address] [place] [address] [place] [address] [place] [address] Johnny Penn MD [address] [place] [address] Scheduled Procedures Name Priority Associated Diagnoses Date/Ti ne ESOPHAGOGASTRODUODENOSCOPY Eosinophilic esophagitis Esophageal dysphagia 03/07/2024 9:00 AM CDT documented as of this encounter Visit Diagnoses Not on filedocumented in this encounter Additional Health Concerns Infection Onset Date Last Indicated Resolved Time Rule Out COVID-19 04/26/2022 04/26/2022 04/26/2022 6:47 AM CDT Rule Out COVID-19 05/17/2022 05/17/2022 05/17/2022 10:20 PM SUPERVISOR ENGINE ASSEMBLY Rule Out COVID-19 06/09/2022 06/09/2022 06/09/2022 9:35 AM SUPERVISOR ENGINE ASSEMBLY COVID-19 06/09/2022 06/09/2022 06/30/2022 11:4 1 PM SUPERVISOR ENGINE ASSEMBLY Rule Out COVID-19 11/10/2022 11/10/2022 11/11/2022 12:17 PM CDT Rule Out COVID-19 03/07/2023 03/07/2023 03/07/2023 1:20 PM CDT Rule Out COVID-19 12/26/2023 12/26/2023 12/26/2023 9:50 AM CDT Assessment Noted Time PHQ-9 Depression Total Score: 2 12/19/19 22 2:50 PM CDT documented as of this encounter Care Teams Exceptional Student Education Teacher Relationship Specialty Start Date End Date Marija Edgar APRN CREATIVE SERVICES COORDINATOR PCP - General Nurse Practitioner 04/30/20 04/14/23 Esha Grimm, PAUcheC [address] [place] [phone] PCP - General Family Medicine 05/04/23 Lita Oseguera Personal Advocate & Liaison (PAL) 02/28/20 03/27/23 Marija Edgar APRN CREATIVE SERVICES COORDINATOR Assigned PCP 06/08/20 04/29/23 Keisha Dotson MD [address] [place] [address] Assigned Neuroscience Provider 06/04/20 04/01/23 Diana Desir, [facility] [address] [place], [place] [address] Pharmacist Pharmacist 04/17/21 Rain Galaviz PA-C [address] [place] [address] [address] [facility] [address] Physician Software Development Advisor Dermatology 04/28/21 Tavia Wyatt MD [address] [place] [address] [address] [facility] [address] Dermatology 07/14/21 Erica Farrell APRN CREATIVE SERVICES COORDINATOR [address] [facility] [address] [place] [address] Nurse Practitioner Cardiovascular Disease 09/09/21 Tavia Wyatt MD Assigned Surgical Provider 11/29/21 05/07/22 Rich Barrett MD [address] [facility] [address] [place], [place] [address] Physician Ophthalmology 01/21/22 Neil Kent MD 500 [place] [address] Dermatology 02/24/22 Roney Story DPM [address] [facility] [address] [place] [address] Assigned Musculoskeletal Provider 03/20/22 08/13/22 Erica Farrell APRN CREATIVE SERVICES COORDINATOR 1700 [place] [address] Assigned Heart and Vascular Provider 04/03/22 04/16/22 Diana Desir, [facility] [address] [place] [address] Assigned MTM Pharmacist 04/07/22 Jelena David OD [address] [facility] [place] [address] Assigned Surgical Provider 05/08/22 10/08/22 Galo Burrell MD Assigned Heart and Vascular Provider 04/17/22 06/11/22 Livan Sharif MD [address] [place] [address] Cardiovascular Disease 05/14/22 Livan Sharif MD [address] [place] 262825 Assigned Heart and Vascular Provider 06/12/22 07/23/22 Catherine Cm MD [address] [place] [address] Cardiovascular Disease 07/21/22 Valery Veronica PA-C [address] [place] [address] Physician Software Development Advisor Dermatology 07/21/22 Catherine Cm MD [address] [place] 8[address]200 [place] [address] Assigned Heart and Vascular Provider 07/24/22 11/05/22 Johnny Murillo MD [address] [place] [address] Assigned Musculoskeletal Provider 08/14/22 10/08/22 Brea Quinn APRN CREATIVE SERVICES COORDINATOR [address] [place] [address] 122755 Nurse Practitioner Dermatology 09/21/22 Brea Quinn APRN CREATIVE SERVICES COORDINATOR [address] [place] [address] Assigned Surgical Provider 10/09/22 [place] [address] RA[address] [place] [address] Assigned Musculoskeletal Provider 10/09/22 Livan Sharif MD [address] [place] 8826200 [place] [address] Assigned Heart and Vascular Provider 11/06/22 11/12/22 Catherine Cm MD [address] [place], [place] [address] Assigned Heart and Vascular Provider 11/13/22 05/27/23 Sydnie Martinez RN Personal Advocate & Liaison (PAL) Family Medicine 03/28/23 07/31/23 Alfonso Renteria MD [facility] [facility] [address] [place] [address] Assigned Neuroscience Provider 04/02/23 Cheng Todd PA-C [address] [place] [address] [id number] Assigned PCP 04/30/23 07/15/23 Radha Lomeli APRN CREATIVE SERVICES COORDINATOR [address] [place] [address] Assigned Heart and Vascular Provider 05/28/23 Jelena David OD [address] [facility] [place] [address] Ophthalmology 06/15/23 Pao Joseph RN Personal Advocate & Liaison (PAL) Nurse 08/01/23 11/07/23 Esha Grimm PA-C [address] [place] [phone] Assigned PCP 07/16/23 Valery Veronica PA-C 9 [place] [address] Physician Software Development Advisor Dermatology 09/19/23 Rey Tay MD [address] [place] [address] Gastroenterology 09/20/23 Rocky Zepeda DO [address] [place] [address] Physician Gastroenterology 09/20/23 Philip Dumont MD [address] [place] [address] Physician Ophthalmology 09/22/23 Meredith Carrera PAUcheC [address] [place] [address] Assigned Gastroenterology Provider 11/01/23 Neil Kent MD [address] [place] [address] Dermatology 11/02/23 [place] [address] [place] [address] Neurological Surgery 12/26/23 documented as of this encounter
--- OUTSIDE RECORDS SUMMARY | 2024-02-12 05:50 | XMS_ITS | Encounter Summary ---
Author Organization [facility] Address [address] [place] [address] Care Team Providers Care Primary Teacher Name Role Phone Lita Oseguera Unavailable Unavailable Marija Edgar APRN INSOLE AND OUTSOLE PREPARER Primary Care Provider U Marija Bella APRN INSOLE AND OUTSOLE PREPARER Unavailable Unavail able Keisha Dotson MD Unavailable [phone] Diana Desir [facility] Unavailable Rain Galaviz-C Unavailable Tavia Wyatt MD Unavailable Unavailable Erica Farrell APRN INSOLE AND OUTSOLE PREPARER Unavailable Tavia Wyatt MD Unavailable Unavailable Rich Barrett MD Unavailable [phone] Neil Kent MD Unavailable Roney StoryM Unavailable [phone] Diana Desir [facility] Unavailable [phone] Jelena David OD Unavailable Galo Burrell MD Unavailable Unavailable Livan Sharif MD Unavailable Livan Sharif MD Unavailable Catherine Cm MD Unavailable + Valery Veronica PA-C Unavailable [phone] Catherine Cm MD Unavailable + Johnny Murillo MD Unavailable [phone] Brea Quinn CLOCK AND WATCH HANDS DIPPER INSOLE AND OUTSOLE PREPARER Unavailable [phone] Brea Quinn CLOCK AND WATCH HANDS DIPPER INSOLE AND OUTSOLE PREPARER Unavailable [phone] Jose Francisco Johnson MD Unavailable Livan Sharif MD Unavailable Catherine Cm MD Unavailable + Sydnie Martinez RN Unavailable Unavailable Alfonso Renteria MD Unavailable [phone] Esha Grimm PA-C Primary Care Provider Cheng Todd PA-C Unavailable Radha Lomeli CLOCK AND WATCH HANDS DIPPER INSOLE AND OUTSOLE PREPARER Unavailable Tommy Davidmao Templetone OD Unavailable [phone] Pao Joseph RN Unavailable Unavailable Esha Grimm PA-C Unavailable [phone] Valery Veronica PA-C Unavailable [phone] Rey Tay MD Unavailable Rocky Zeepda DO Unavailable Philip Dumont MD Unavailable Meredith Carrera PA-C Unavailable Neil Kent MD Unavailable Juan Pablo Emmanuel MD Unavailable [phone] Encounter Details Date Type Department Care Team (Late st Contact Info) Description 05/01/2022 [facility] [address] [address] Diana Desir, [facility] [address] [place] [address] Social History Tobacco Use Types Packs/Day Years [...] How often do you attend presybeterian or jewish serv ices? Never 09/22/2021 Do you belong [...] Answer Date Recorded PHQ-2 Score 2 12/18/2021 [facility] - Occupational [...] in a halfway (including now)? No 09/22/2021 [place] Depression Scale Answer Date Recorded [place] Depression Score 5 01/14/2021 Last EPDS Self [...] 12:50 PM CDT Therapy Visit [facility] [id number] [place] [phone] Rustam Medina, PT [facility] [id number] [place] [address] 03/06/2024 3:00 PM CDT Office Visit [facility] [place] [id number] [place] [address] [address] [place] [phone] Radha Lomeli, CLOCK AND WATCH HANDS DIPPER INSOLE AND OUTSOLE PREPARER [address] [place] [address] 03/07/2024 9:00 AM CDT Hospital Encounter [address] [phone] Rocky Zepeda DO [address] [place] [address] 03/07/2024 9:00 AM CDT - 03/07/2024 9:30 AM CDT Surgery [address] [phone] Rocky Zepeda DO [address] [place], [place] [address] Esophagoscopy, gastroscopy, duodenoscopy (EGD), combined 06/21/2024 2:00 PM EBD TEACHER Office Visit [facility] [place] [address] [facility], [address] [place] [address] [place] [address] [place] [id number] Johnny Penn MD [address] [place] [address] Scheduled Procedures Name Priority Associated Diagnoses Date/Ti ms ESOPHAGOGASTRODUODENOSCOPY Eosinophilic esophagitis Esophageal dysphagia 03/07/2024 9:00 AM CDT documented as of this encounter Visit Diagnoses Not on filedocumented in this encounter Additional Health Concerns Infection Onset Date Last Indicated Resolved Time Rule Out COVID-19 05/17/2022 05/17/2022 05/17/2022 10:20 PM EBD TEACHER Rule Out COVID-19 06/09/2022 06/09/2022 06/09/2022 9:35 AM EBD TEACHER COVID-19 06/09/2022 06/09/2022 06/30/2022 11:4 1 PM EBD TEACHER Rule Out COVID-19 11/10/2022 11/10/2022 11/11/2022 12:17 PM CDT Rule Out COVID-19 03/07/2023 03/07/2023 03/07/2023 1:20 PM CDT Rule Out COVID-19 12/26/2023 12/26/2023 12/26/2023 9:50 AM CDT Assessment Noted Time PHQ-9 Depression Total Score: 2 12/19/19 22 2:50 PM CDT documented as of this encounter Care Teams Primary Teacher Relationship Specialty Start Date End Date Marija Edgar APRN INSOLE AND OUTSOLE PREPARER PCP - General Nurse Practitioner 04/30/20 04/14/23 Esha Grimm PA-C [address] [facility] [place] [address] PCP - General Family Medicine 05/04/23 Lita Oseguera Personal Advocate & Liaison (PAL) 02/28/20 03/27/23 Marija Edgar APRN INSOLE AND OUTSOLE PREPARER Assigned PCP 06/08/20 04/29/23 Keisha Dotson MD [address] [place] [address] Assigned Neuroscience Provider 06/04/20 04/01/23 [facility] [address] [place] [address] Pharmacist Pharmacist 04/17/21 Rain Galaviz PA-C [address] [place] [address] [address] [place] [address] Physician Cone Operator Dermatology 04/28/21 Tavia Wyatt MD [address] [place] [address] [address] [place] [address] Dermatology 07/14/21 Erica Farrell APRN INSOLE AND OUTSOLE PREPARER [address] [place] [address] Nurse Practitioner Cardiovascular Disease 09/09/21 Tavia Wyatt MD Assigned Surgical Provider 11/29/21 05/07/22 Rich Barrett MD [address] 107[address] Physician Ophthalmology 01/21/22 Neil Kent MD [address] [place] [address] Dermatology 02/24/22 Roney Story DPM [address] [facility] [address] [place], [place] [address] Assigned Musculoskeletal Provider 03/20/22 08/13/22 Diana Desir, [facility] [address] [place], [place] 387036 Assigned MTM Pharmacist 04/07/22 Jelena David, [place] [address] [facility] [address] Assigned Surgical Provider 05/08/22 10/08/22 Galo Burrell MD Assigned Heart and Vascular Provider 04/17/22 06/11/22 Livan Sharif MD [address] [place] [address] Cardiovascular Disease 05/14/22 Livan Sharif MD [address] [place] [address] Assigned Heart and Vascular Provider 06/12/22 07/23/22 Catherine Cm MD [address] [place] [address] Cardiovascular Disease 07/21/22 Valery Veronica PAUcheC [address]09 [place] [address] Physician Cone Operator Dermatology 07/21/22 Catherine Cm MD [address] [place] [address] Assigned Heart and Vascular Provider 07/24/22 11/05/22 Johnny Murillo MD [address] [address] Assigned Musculoskeletal Provider 08/14/22 10/08/22 Brea Quinn APRN INSOLE AND OUTSOLE PREPARER 500 [place] [address] Nurse Practitioner Dermatology 09/21/22 Brea Quinn APRN INSOLE AND OUTSOLE PREPARER [address] [place] [address] Assigned Surgical Provider 10/09/22 [place] [address] [address] [facility] [address] [place] [address] Assigned Musculoskeletal Provider 10/09/22 Livan Sharif MD [address], [facility] [address] [place], [place] [address] Assigned Heart and Vascular Provider 11/06/22 11/12/22 Catherine Cm MD [address] [facility] [address] [place], [place] [address] Assigned Heart and Vascular Provider 11/13/22 05/27/23 Sydnie Martinez RN Personal Advocate & Liaison (PAL) Family Medicine 03/28/23 07/31/23 Alfonso Renteria MD [address] [facility] [address] [place] [address] Assigned Neuroscience Provider 04/02/23 Cheng Todd PA-C [address] [place] [address] Assigned PCP 04/30/23 07/15/23 Radha Lomeli APRN INSOLE AND OUTSOLE PREPARER [address] [facility] [address] [place] [address] Assigned Heart and Vascular Provider 05/28/23 Jelena David OD [address] [facility] [address] Ophthalmology 06/15/23 Pao Joseph, VJ Personal Advocate & Liaison (PAL) Nurse 08/01/23 11/07/23 Esha Grimm PA-C [address] [place] [address] Assigned PCP 07/16/23 Valery Veronica PA-C [address] [place] [address] 327725 Physician Cone Operator Dermatology 09/19/23 Rey Tay MD [address] [place] [address] 064245 Gastroenterology 09/20/23 Rocky Zepeda DO [address] [place] [address] 182615 Physician Gastroenterology 09/20/23 Philip Dumont MD [address] [place] [address] Physician Ophthalmology 09/22/23 Meredith Carrera PA-C [address] [place] [address] Assigned Gastroenterology Provider 11/01/23 Neil Kent MD [address] [address] MD Dermatology 11/02/23 [place] [address] [place], [place] 94[address] Neurological Surgery 12/26/23 documented as of this encounter
--- OUTSIDE RECORDS SUMMARY | 2024-02-12 05:50 | XMS_ITS | Encounter Summary ---
Author Organization [facility] Address [address] [place] [address] Care Team Providers Care Inside Contractor Sales Name Role Phone Lita Oseguera Unavailable Unavailable Marija Edgar APRN NET SORTER Primary Care Provider U Marija Bella APRN NET SORTER Unavailable Unavail able Keisha Dotson MD Unavailable [phone] Galo Burrell MD Unavailable Unavailable Diana Desir [facility] Unavailable Rain Galaviz PA-C Unavailable Summer Lara MD Unavailable [phone] Tavia Wyatt MD Unavailable Unavailable Johnny Murillo MD Unavailable [phone] Erica Farrell APRN NET SORTER Unavailable Tavia Wyatt MD Unavailable Unavailable Diana Desir [facility] Unavailable Rich Barrett MD Unavailable [phone] Neil Kent MD Unavailable Roney Story DPM Unavailable [phone] Erica Farrell WASHER OPERATOR NET SORTER Unavailable Diana Desir [facility] Unavailable [phone] Frankie, Jelena Radha OD Unavailable Galo Burrell MD Unavailable Unavailable Livan Sharif MD Unavailable + Livan Sharif MD Unavailable + IsCatherine hobbs MD Unavailable + Valery Veronica PA-C Unavailable [phone] Catherine Cm MD Unavailable + Johnny Murillo MD Unavailable [phone] Brea Quinn WASHER OPERATOR NET SORTER Unavailable [phone] Brea Quinn WASHER OPERATOR NET SORTER Unavailable [phone] Jose Francisco Johnson MD Unavailable Livan Sharif MD Unavailable + Catherine Cm MD Unavailable + Sydnie Martinez RN Unavailable Unavailable Alfonso Renteria MD Unavailable Esha Grimm PA-C Primary Care Provider Cheng Todd PA-C Unavailable Radha Lomeli WASHER OPERATOR NET SORTER Unavailable [phone] Jelena David OD Unavailable [phone] Pao Joseph RN Unavailable Unavailable Esha Grimm PA-C Unavailable [phone] Valery Veronica PA-C Unavailable [phone] Rey Tay MD Unavailable Rocky Zepeda DO Unavailable Philip Dumont MD Unavailable [phone] Meredith Carrera PA-C Unavailable [phone] Neil Kent MD Unavailable Juan Pablo Emmanuel MD Unavailable Encounter Details Date Type Department Care Team (Late st Contact Info) Description 01/22/2022 [facility] Medical Advice [address] [address] Thang Diana T, [facility] [address] [place] [address] Social History Tobacco Use Types [...] How often do you attend congregation or zoroastrianism serv ices? Never 09/22/2021 Do [...] Answer Date Recorded PHQ-2 Score 2 12/18/2021 [facility] Occupat ional Health - Occupational Stress [...] in a assisted (including now)? No 09/22/2021 [place] Depression Scale Answer Date Recorded [place] Depression Score 5 01/14/2021 Last EPDS Self [...] Description 02/14/2024 12:50 PM CDT Therapy Visit [facility] [address] [address] Rustam Medina, PT [facility] [address] [place] [address] 03/06/2024 3:00 PM CDT Office Visit [facility] [place] [address] [place] [address] [address] [place] [phone] Radha Lomeli APRN NET SORTER [address] [place] [address] 03/07/2024 9:00 AM CDT Hospital Encounter [address] 5th [place] [phone] Rocky Zepeda DO 500 [place] [address] 03/07/2024 9:00 AM CDT - 03/07/2024 9:30 AM CDT Surgery [address] 5th [place] [phone] Rocky Zepeda, DO [address] [place], [place] [address] Esophagoscopy, gastroscopy, duodenoscopy (EGD), combined 06/21/2024 2:00 PM CLERK RATING Office Visit [facility] Neurology [facility] [address] [facility], [address] [place] [address] [place] [address] [place] [address] Johnny Penn MD [address] [place] [address] Scheduled Procedures Name Priority Associated Diagnoses [...] Out COVID-19 05/17/2022 05/17/2022 05/17/2022 10:20 PM CLERK RATING Rule Out COVID-19 06/09/2022 06/09/2022 06/09/2022 9:35 AM CLERK RATING COVID-19 06/09/2022 06/09/2022 06/30/2022 11:4 1 PM CLERK RATING Rule Out COVID-19 11/10/2022 11/10/2022 11/11/2022 12:17 PM CDT Rule Out COVID-19 03/07/2023 03/07/2023 03/07/2023 1:20 PM CDT Rule Out COVID12/26/2023 12/26/2023 12/26/2023 9:50 AM CDT Assessment Noted Time PHQ-9 Depression Total Score: 2 12/19/19 2:50 PM CDT documented as of this encounter Care Teams Inside Contractor Sales Relationship Specialty Start Date End Date Marija Edgar APRN NET SORTER PCP - General Nurse Practitioner 04/30/20 04/14/23 Esha Grmim PA-C [address] [place] [address] PCP - General Family Medicine 05/04/23 Lita Oseguera Personal Advocate & Liaison (PAL) 02/28/20 03/27/23 Marija Edgar APRN NET SORTER Assigned PCP 06/08/20 04/29/23 Keisha Dotson MD 909 [place] [address] Assigned Neuroscience Provider 06/04/20 04/01/23 Galo Burrell MD Assigned Heart and Vascular Provider 10/05/20 04/02/22 Diana Desir, [facility] [address] [place] [address] Pharmacist Pharmacist 04/17/21 Rain Galaviz PA-C [address] [place] [address] [place] [address] Physician Regional Administrative Assistant Dermatology 04/28/21 Summer Lara MD [address] [place] [address] Assigned OBGYN Provider 05/31/21 2 Tavia Wyatt MD [address] [address] Dermatology 07/14/21 Johnny Murillo MD [address] [place] [address] Assigned Musculoskeletal Provider 08/30/21 03/17/22 Erica Farrell APRN NET SORTER [address] [facility] [address] [place] [address] Nurse Practitioner Cardiovascular Disease 09/09/21 Tavia Wyatt MD Assigned Surgical Provider 11/29/21 05/07/22 Diana Desir, [facility] [address] [place] [address] Assigned MTM Pharmacist 01/02/22 Rich Barrett MD [address] [facility] [address] [place], [place] 3[address] Physician Ophthalmology 01/21/22 Neil Kent MD 500 [place] [address] Dermatology 02/24/22 [place] [address] [facility] [address] [place], [place] [address] Assigned Musculoskeletal Provider 03/20/22 08/13/22 Erica Farrell APRN NET SORTER 17[address] [place] [address] Assigned Heart and Vascular Provider 04/03/22 04/16/22 Diana Desir, [facility] [address] [place], [place] [address] Assigned MTM Pharmacist 04/07/[address] [facility] [place] [address] Assigned Surgical Provider 05/08/22 10/08/22 Galo Burrell MD Assigned Heart and Vascular Provider 04/17/22 06/11/22 Livan Sharif MD [address] [place], [place] [address] Cardiovascular Disease 05/14/22 Livan Sharif MD [address] [place], [place] [address] Assigned Heart and Vascular Provider 06/12/22 07/23/22 Catherine Cm MD [address] [place] [address] Cardiovascular Disease 07/21/22 Valery Veronica, PA-C [address] [place] [address] Physician Regional Administrative Assistant Dermatology 07/21/22 Catherine Cm MD [address] [place], [place] [address] Assigned Heart and Vascular Provider 07/24/22 11/05/22 Johnny Murillo MD [address] [place] [address] Assigned Musculoskeletal Provider 08/14/22 10/08/22 Brea Quinn APRN NET SORTER [address] [facility] [place], [place] [address] Nurse Practitioner Dermatology 09/21/22 Brea Quinn APRN NET SORTER [address] [place], [place] [address] Assigned Surgical Provider 10/09/22 [place] [address] 311[address] Assigned Musculoskeletal Provider 10/09/22 Livan Sharif MD [address] [facility] [address] [place] [address] Assigned Heart and Vascular Provider 11/06/22 11/12/22 Catherine Cm MD [address] [facility] [address] [place] [address] Assigned Heart and Vascular Provider 11/13/22 05/27/23 Sydnie Martinez RN Personal Advocate & Liaison (PAL) Family Medicine 03/28/23 07/31/23 Alfonso Renteria MD [address] [facility] 200 [place] [address] Assigned Neuroscience Provider 04/02/23 Cheng Todd PA-C [address] [place] [address] [id number] Assigned PCP 04/30/23 07/15/23 Radha Lomeli APRN CNP [address] [facility] [address] [place] [address] Assigned Heart and Vascular Provider 05/28/23 J[address] David OD [address] [facility] [place] [address] MD Ophthalmology 06/15/23 Pao Joseph, VJ Personal Advocate & Liaison (PAL) Nurse 08/01/23 11/07/23 Esha Grimm PA-C [address] [place] [phone] Assigned PCP 07/16/23 Valery Veronica PA-C [address] [place] [address] 886745 Physician Regional Administrative Assistant Dermatology 09/19/23 Rey Tay MD [address] [place] [address] 277165 Gastroenterology 09/20/23 Rocky Zepeda DO [address] [place] [address] 729935 Physician Gastroenterology 09/20/23 Philip Dumont MD [address] [place] [address] 859925 Physician Ophthalmology 09/22/23 Meredith Carrera PA-C [address] [place] [address] [phone] Assigned Gastroenterology Provider 11/01/23 Neil Kent MD [address] [place] [address] Dermatology 11/02/23 [place] [address] [place] [address] Neurological Surgery 12/26/23 documented as of this encounter
--- OUTSIDE RECORDS SUMMARY | 2024-02-12 05:50 | XMS_ITS | Encounter Summary ---
Author Organization [place] Address [address] [place] [address] Care Team Providers Care Personnel Supervisor Name Role Phone Lita Oseguera Unavailable Unavailable Marija Edgar APRN DOCUMENTATION CONSULTANT Primary Care Provider U Marija Bella APRN DOCUMENTATION CONSULTANT Unavailable Unavail able Keisha Dotson MD Unavailable [phone] Diana Desir [facility] Unavailable +[phone] Rain Galaviz PA-C Unavailable [phone] Tavia Wyatt MD Unavailable Unavailable Erica Farrell APRN DOCUMENTATION CONSULTANT Unavailable Rich Barrett MD Unavailable [phone] Neil Kent MD Unavailable Roney Story DPM Unavailable [phone] Diana Desir [facility] Unavailable [phone] Jelena David OD Unavailable Galo Burrell MD Unavailable Unavailable Livan Sharif MD Unavailable Livan Sharif MD Unavailable Catherine Cm MD Unavailable + Valery Veronica PA-C Unavailable [phone] Catherine Cm MD Unavailable + Johnny Murillo MD Unavailable [phone] Brea Quinn INTERNET ASSESSOR DOCUMENTATION CONSULTANT Unavailable [phone] Brea Quinn INTERNET ASSESSOR DOCUMENTATION CONSULTANT Unavailable [phone] Jose Francisco Johnson MD Unavailable Livan Sharif MD Unavailable Catherine Cm MD Unavailable + Sydnie Martinez RN Unavailable Unavailable Alfonso Renteria MD Unavailable Esha Grimm PA-C Primary Care Provider Cheng Todd PA-C Unavailable [phone] Radha Lomeli INTERNET ASSESSOR DOCUMENTATION CONSULTANT Unavailable [phone] Jelena David OD Unavailable [phone] Pao Joseph RN Unavailable Unavailable Esha Grimm PA-C Unavailable [phone] Valery Veronica PA-C Unavailable [phone] Rey Tay MD Unavailable Rocky Zepeda DO Unavailable Philip Dumont MD Unavailable [phone] Meredith Carrera PA-C Unavailable Neil Kent MD Unavailable Juan Pablo Emmanuel MD Unavailable [phone] Encounter Details Date Type Department Care Team (Late st Contact Info) Description 05/11/2022 [facility] [address] [address] Diana Desir, [facility] [address] [place] [address] Social History Tobacco Use Types [...] How often do you attend episcopalian or zoroastrian serv ices? Never 09/22/2021 Do [...] if positive 1 05/13/2022 [facility] - Occupational Stress Questionnaire Answer Date Recorded [...] in a snf (including now)? No 09/22/2021 Telferner Depression Scale Answer Date Recorded Telferner Depression Score 5 01/14/2021 Last EPDS Self [...] Description 02/14/2024 12:50 PM CDT Therapy Visit [facility] [id number] [place] [phone] Rustam Medina, PT [facility] [id number] [place] [address] 03/06/2024 3:00 PM CDT Office Visit [facility] [place] [address] [facility] [address] [place] [phone] Radha Lomeli, INTERNET ASSESSOR DOCUMENTATION CONSULTANT [address] [facility] [address] [place], [place] [address] 03/07/2024 9:00 AM CDT Hospital Encounter [address] [phone] Rocky Zepeda DO 500 [place], [place] [address] 03/07/2024 9:00 AM CDT - 03/07/2024 9:30 AM CDT Surgery [facility] [address] [place] [phone] Rocky Zepeda DO 500 [place], [place] [phone] Esophagoscopy, gastroscopy, duodenoscopy (EGD), combined 06/21/2024 2:00 PM TRAINING AND DEVELOPMENT REP Office Visit [facility] [place] [address] [facility], [address] [place] [address] [place] [address] [place], [place] [phone] Johnny Penn MD [address] [place] [address] Scheduled Procedures Name Priority Associated Diagnoses Date/Ti la ESOPHAGOGASTRODUODENOSCOPY Eosinophilic esophagitis Esophageal dysphagia 03/07/2024 9:00 AM CDT documented as of this encounter Visit Diagnoses Not on filedocumented in this encounter Additional Health Concerns Infection Onset Date Last Indicated Resolved Time Rule Out COVID-19 05/17/2022 05/17/2022 05/17/2022 10:20 PM TRAINING AND DEVELOPMENT REP Rule Out COVID-19 06/09/2022 06/09/2022 06/09/2022 9:35 AM TRAINING AND DEVELOPMENT REP COVID-19 06/09/2022 06/09/2022 06/30/2022 11:4 1 PM TRAINING AND DEVELOPMENT REP Rule Out COVID-19 11/10/2022 11/10/2022 11/11/2022 12:17 PM CDT Rule Out COVID-19 03/07/2023 03/07/2023 03/07/2023 1:20 PM CDT Rule Out COVID-19 12/26/2023 12/26/2023 12/26/2023 9:50 AM CDT Assessment Noted Time PHQ-9 Depression Total Score: 3 05/13/20 22 8:49 PM CDT documented as of this encounter Care Teams Personnel Supervisor Relationship Specialty Start Date End Date Marija Edgar APRN DOCUMENTATION CONSULTANT PCP - General Nurse Practitioner 04/30/20 04/14/23 Esha Grimm PA-C [address] [facility] [place] [address] PCP - General Family Medicine 05/04/23 Lita Oseguera Personal Advocate & Liaison (PAL) 02/28/20 03/27/23 Marija Edgar APRN DOCUMENTATION CONSULTANT Assigned PCP 06/08/20 04/29/23 Keisha Dotson MD [address] [place] [address] Assigned Neuroscience Provider 06/04/20 04/01/23 Diana Desir, [facility] [address] [place], [place] 2845[address] Pharmacist Pharmacist 04/17/21 Rain Galaviz PA-C [address] [place] [address] [address] [facility] [place] [address] Physician Recycler Forklift Driver Truck Driver Dermatology 04/28/21 Tavia Wyatt MD [address] [place] [address] [address] [facility] [place] [facility] [place] [address] Dermatology 07/14/21 Erica Farrell APRN DOCUMENTATION CONSULTANT [address] [place], [place] [address] Nurse Practitioner Cardiovascular Disease 09/09/21 Rich Barrett MD [address] 170[address] Physician Ophthalmology 01/21/22 Neil Kent MD [address] [place] [address] [phone] Dermatology 02/24/22 Roney Story DPM [address] [facility] [address] [place] [address] Assigned Musculoskeletal Provider 03/20/22 08/13/22 Diana Desir, [facility] [address] [place] [address] Assigned MTM Pharmacist 04/07/22 Jelena David OD [address] [facility] [place] [address] Assigned Surgical Provider 05/08/22 10/08/22 Galo Burrell MD Assigned Heart and Vascular Provider 04/17/22 06/11/22 Livan Sharif MD [address], [address] [place] [address] Cardiovascular Disease 05/14/22 Livan Sharif MD [address], [address] [place] [address] Assigned Heart and Vascular Provider 06/12/22 07/23/22 Catherine Cm MD [address] [place] [address] Cardiovascular Disease 07/21/22 Valery Veronica PA-C 9[address] [place], [place] 298775 Physician Recycler Forklift Driver Truck Driver Dermatology 07/21/22 Catherine Cm MD [address] [place] 593685 Assigned Heart and Vascular Provider 07/24/22 11/05/22 Johnny Murillo MD [facility] [address] [address] Assigned Musculoskeletal Provider 08/14/22 10/08/22 Brea Quinn APRN DOCUMENTATION CONSULTANT 500 [place] [address] Nurse Practitioner Dermatology 09/21/22 Brea Quinn APRN DOCUMENTATION CONSULTANT 64[address] [place] [address] Assigned Surgical Provider 10/09/22 [place] [address] [address] Assigned Musculoskeletal Provider 10/09/22 Livan Sharif MD [address] [facility] [address] [place] [address] Assigned Heart and Vascular Provider 11/06/22 11/12/22 Catherine Cm MD [address] 9890000 [place] [address] Assigned Heart and Vascular Provider 11/13/22 05/27/23 Sydnie Martinez RN Personal Advocate & Liaison (PAL) Family Medicine 03/28/23 07/31/23 Alfonso Renteria MD [address] [facility] 200 [place], [place] 1757[address] Assigned Neuroscience Provider 04/02/23 Cheng Todd PA-C [address] [place] [address] [phone] Assigned PCP 04/30/23 07/15/23 Radha Lomeli APRN DOCUMENTATION CONSULTANT [address] [facility] [address] [place], [place] 6[address] Assigned Heart and Vascular Provider 05/28/23 Jelena David OD [address] [facility] [place] [address] Ophthalmology 06/15/23 Pao Joseph, VJ Personal Advocate & Liaison (PAL) Nurse 08/01/23 11/07/23 Esha Grimm PA-C [address] [place] [address] Assigned PCP 07/16/23 Valery Veronica PA-C [address] [place] [address] 745435 Physician Recycler Forklift Driver Truck Driver Dermatology 09/19/23 Rey Tay MD [address] [place] [address] [phone] Gastroenterology 09/20/23 Rocky Zepeda DO [address] [place] [address] [phone] Physician Gastroenterology 09/20/23 Philip Dumont MD [address] [place] [address] 681175 Physician Ophthalmology 09/22/23 Meredith Carrera PA-C [address] [place] [address] Assigned Gastroenterology Provider 11/01/23 Neil Kent MD [address] 182430 MD Dermatology 11/02/23 [place] [address] [place], [place] [address] Neurological Surgery 12/26/23 documented as of this encounter
--- OUTSIDE RECORDS SUMMARY | 2024-02-12 05:50 | XMS_ITS | Encounter Summary ---
Author Organization [place] Address [address] [place] [address] Care Team Providers Care Hot Man Name Role Phone Lita Osegeura Unavailable Unavailable Marija Edgar APRN CHISEL MORTISER OPERATOR Primary Care Provider U Marija Bella APRN CHISEL MORTISER OPERATOR Unavailable Unavail able Keisha Dotson MD Unavailable [phone] Galo Burrell MD Unavailable Unavailable Diana Desir [facility] Unavailable Rain Galaviz PA-C Unavailable [phone] Summer Lara MD Unavailable [phone] Tavia Wyatt MD Unavailable Unavailable Johnny Murillo MD Unavailable Erica Farrell APRN CHISEL MORTISER OPERATOR Unavailable Tavia Wyatt MD Unavailable Unavailable Diana Desir [facility] Unavailable [phone] Rich Barrett MD Unavailable [phone] Neil Kent MD Unavailable Roney Story DPM Unavailable [phone] Erica Farrell BALANCE SCREWHEAD POLISHER CHISEL MORTISER OPERATOR Unavailable Diana Desir [facility] Unavailable [phone] Frankie, Jelena Radha OD Unavailable Galo Burrell MD Unavailable Unavailable Livan Sharif MD Unavailable + Livan Sharif MD Unavailable + IsCatherine hobbs MD Unavailable + Valery Veronica PA-C Unavailable [phone] Catherine Cm MD Unavailable + Johnny Murillo MD Unavailable [phone] Brea Quinn BALANCE SCREWHEAD POLISHER CHISEL MORTISER OPERATOR Unavailable [phone] Brea Quinn BALANCE SCREWHEAD POLISHER CHISEL MORTISER OPERATOR Unavailable [phone] Jose Francisco Johnson MD Unavailable Livan Sharif MD Unavailable + Catherine Cm MD Unavailable + Sydnie Martinez RN Unavailable Unavailable Alfonso Renteria MD Unavailable Esha Grimm PA-C Primary Care Provider Cheng Todd PA-C Unavailable Radha Lomeli BALANCE SCREWHEAD POLISHER CHISEL MORTISER OPERATOR Unavailable [phone] Jelena David OD Unavailable [phone] Pao Joseph RN Unavailable Unavailable Esha Grimm PA-C Unavailable [phone] Valery Veronica PA-C Unavailable [phone] Rey Tay MD Unavailable Rocky Zepeda DO Unavailable Philip Dumont MD Unavailable [phone] Meredith Carrera PA-C Unavailable [phone] Neil Kent MD Unavailable Juan Pablo Emmanuel MD Unavailable [phone] Encounter Details Date Type Department Care Team (Late st Contact Info) Description 03/09/2022 [facility] Medical Advice [address] [address] Abby Dye Social History Tobacco [...] How often do you attend latter-day or restorationist serv ices? Never 09/22/2021 Do [...] Answer Date Recorded PHQ-2 Score 2 12/18/2021 [facility] - Occupational Stress Questionnaire [...] in a chcf (including now)? No 09/22/2021 [place] Depression Scale Answer Date Recorded [place] Depression Score 5 01/14/2021 Last EPDS Self [...] Description 02/14/2024 12:50 PM CDT Therapy Visit [address] [address] Rustam Medina, PT [facility] [address] [place] [address] 03/06/2024 3:00 PM CDT Office Visit [facility] [place] [address] [facility] [address] [place] [phone] Radha Lomeli APRN CHISEL MORTISER OPERATOR [address] [place], [place] [address] 03/07/2024 9:00 AM CDT Hospital Encounter [address] [address] Rocky Zepeda DO [address] [place] [address] 03/07/2024 9:00 AM CDT - 03/07/2024 9:30 AM CDT Surgery [address] [address] Rocky Zepeda DO [address] [place], [place] 57[address] Esophagoscopy, gastroscopy, duodenoscopy (EGD), combined 06/21/2024 2:00 PM SHOWCASE TRIMMER Office Visit [facility] Neurology [facility] [address] [facility], [address] [place] [address] [place] [address] [place] [address] Johnny Penn MD [address] [place] [address] Scheduled Procedures Name Priority Associated Diagnoses Date/Ti ga ESOPHAGOGASTRODUODENOSCOPY Eosinophilic esophagitis Esophageal dysphagia 03/07/2024 9:00 AM CDT documented as of this encounter Visit Diagnoses Not on filedocumented in this encounter Additional Health Concerns Infection Onset Date Last Indicated Resolved Time Rule Out COVID-19 04/26/2022 04/26/2022 04/26/2022 6:47 AM CDT Rule Out COVID-19 05/17/2022 05/17/2022 05/17/2022 10:20 PM SHOWCASE TRIMMER Rule Out COVID-19 06/09/2022 06/09/2022 06/09/2022 9:35 AM SHOWCASE TRIMMER COVID-19 06/09/2022 06/09/2022 06/30/2022 11:4 1 PM SHOWCASE TRIMMER Rule Out COVID-19 11/10/2022 11/10/2022 11/11/2022 12:17 PM CDT Rule Out COVID-19 03/07/2023 03/07/2023 03/07/2023 1:20 PM CDT Rule Out COVID-19 12/26/2023 12/26/2023 12/26/2023 9:50 AM CDT Assessment Noted Time PHQ-9 Depression Total Score: 2 12/19/19 2:50 PM CDT documented as of this encounter Care Teams Hot Man Relationship Specialty Start Date End Date Marija Edgar APRN CHISEL MORTISER OPERATOR PCP - General Nurse Practitioner 04/30/20 04/14/23 Esha Grimm PA-C [address] [place] [phone] PCP - General Family Medicine 05/04/23 Lita Oseguera Personal Advocate & Liaison (PAL) 02/28/20 03/27/23 Marija Edgar APRN CHISEL MORTISER OPERATOR Assigned PCP 06/08/20 04/29/23 Keisha Dotson MD 909 [place], [place] 813465 Assigned Neuroscience Provider 06/04/20 04/01/23 Galo Burrell MD Assigned Heart and Vascular Provider 10/05/20 04/02/22 [facility] [address] [place], [place] [address] Pharmacist Pharmacist 04/17/21 Rain Galaviz PA-C [address] [place] [address] [place] [address] Physician Bench Precision Assembler Dermatology 04/28/21 Summer Lara MD [address] [place], [place] [address] Assigned OBGYN Provider 05/31/21 2 Tavia Wyatt MD [address] [place] [address] Dermatology 07/14/21 Johnny Murillo MD [facility] [address] [address] Assigned Musculoskeletal Provider 08/30/21 03/17/22 Erica Farrell APRN CHISEL MORTISER OPERATOR [address] [facility] [address] [place] [address] Nurse Practitioner Cardiovascular Disease 09/09/21 Tavia Wyatt MD Assigned Surgical Provider 11/29/21 05/07/22 Diana Desir, [facility] [address] [place] [address] Assigned MTM Pharmacist 01/02/22 Rich Barrett MD [address] [facility] [address] [place] [address] Physician Ophthalmology 01/21/22 Neil Kent MD 500 [place], [place] 56[address] Dermatology 02/24/22 [place] [address] [facility] [address] [place] [address] Assigned Musculoskeletal Provider 03/20/22 08/13/22 Erica Farrell APRN CHISEL MORTISER OPERATOR [address] [place] [address] Assigned Heart and Vascular Provider 04/03/22 04/16/22 Diana Desir, [facility] [address] [place] [address] Assigned MTM Pharmacist 04/07/22 Frankie Jelnea GarciaSONJA [address] [facility] [place] [address] Assigned Surgical Provider 05/08/22 10/08/22 Galo Burrell MD Assigned Heart and Vascular Provider 04/17/22 06/11/22 Livan Sharif MD [address] [place], [place] [address] Cardiovascular Disease 05/14/22 Livan Sharif MD [address] [place] [address] Assigned Heart and Vascular Provider 06/12/22 07/23/22 Catherine Cm MD [address] [place], [place] [address] Cardiovascular Disease 07/21/22 Valery Veronica, PA-C [address]09 [place] [address] Physician Bench Precision Assembler Dermatology 07/21/22 Catherine Cm MD [address] [place] [address] Assigned Heart and Vascular Provider 07/24/22 11/05/22 Johnny Murillo MD [address] [address] Assigned Musculoskeletal Provider 08/14/22 10/08/22 Brea Quinn APRN CHISEL MORTISER OPERATOR 500 [place] [address] Nurse Practitioner Dermatology 09/21/22 Brea Quinn APRN CHISEL MORTISER OPERATOR [address] [place] [address] Assigned Surgical Provider 10/09/22 [place] [address] [place] [address] Assigned Musculoskeletal Provider 10/09/22 Livan Sharif MD [address], [facility] [address] [place] [address]44[address] Assigned Heart and Vascular Provider 11/06/22 11/12/22 Catherine Cm MD [address] [facility] [address] [place] [address] Assigned Heart and Vascular Provider 11/13/22 05/27/23 Sydnie Martinez RN Personal Advocate & Liaison (PAL) Family Medicine 03/28/23 07/31/23 Alfonso Renteria MD [address] [facility] 200 [place] [address] Assigned Neuroscience Provider 04/02/23 Cheng Todd PA-C [address] [place] [address] Assigned PCP 04/30/23 07/15/23 Radha Lomeli APRN CHISEL MORTISER OPERATOR [address] [place] [address] Assigned Heart and Vascular Provider 05/28/23 Jelena David OD [address] [facility] [address] MD Ophthalmology 06/15/23 Pao Joseph, VJ Personal Advocate & Liaison (PAL) Nurse 08/01/23 11/07/23 Esha Grimm PA-C [address] [place] [phone] Assigned PCP 07/16/23 Valery Veronica PA-C [address] [place] [address] 786325 Physician Bench Precision Assembler Dermatology 09/19/23 Rey Tay MD [address] [place] [address] 752565 Gastroenterology 09/20/23 Rocky Zepeda DO [address] [place] [address] 866415 Physician Gastroenterology 09/20/23 Philip Dumont MD [address] [place] [address] 228865 Physician Ophthalmology 09/22/23 Meredith Carrera PA-C [address] [place] [address] 636105 Assigned Gastroenterology Provider 11/01/23 Neil Kent MD [address] [place] [address] [phone] Dermatology 11/02/23 [place] [address] [place], [place] [address] Neurological Surgery 12/26/23 documented as of this encounter
--- OUTSIDE RECORDS SUMMARY | 2024-02-12 05:50 | XMS_ITS | Encounter Summary ---
Author Organization [facility] Address [address] [place] [address] Care Team Providers Care Supervisor Shipfitters Name Role Phone Lita Oseguera Unavailable Unavailable Marija Edgar APRN RESEARCH ASST Primary Care Provider U Marija Bella APRN RESEARCH ASST Unavailable Unavail able Mynor Broussard MD Unavailable [phone] Keisha Dotson MD Unavailable Galo Brurell MD Unavailable Unavailable Diana Desir [facility] Unavailable Rain Galaviz PA-C Unavailable Summer Lara MD Unavailable [phone] Tavia Wyatt MD Unavailable Unavailable Johnny Murillo MD Unavailable Erica Farrell APRN RESEARCH ASST Unavailable Tavia Wyatt MD Unavailable Unavailable Diana Desir [facility] Unavailable [phone] Rich Barrett MD Unavailable [phone] Neil Kent MD Unavailable Roney StoryM Unavailable [phone] Erica Farrell APRN RESEARCH ASST Unavailable Diana Desir [facility] Unavailable [phone] Jelena David OD Unavailable Galo Burrell MD Unavailable Unavailable Livan Sharif MD Unavailable Livan Sharif MD Unavailable IsCatherine hobbs MD Unavailable + Valery Veronica PA-C Unavailable [phone] Catherine Cm MD Unavailable + Johnny Murillo MD Unavailable [phone] Brea Quinn BISQUE FINISHER RESEARCH ASST Unavailable [phone] Brea Quinn BISQUE FINISHER RESEARCH ASST Unavailable [phone] Jose Francisco Johnson MD Unavailable Livan Sharif MD Unavailable + IsCatherine hobbs MD Unavailable + Sydnie Martinez RN Unavailable Unavailable Alfonso Renteria MD Unavailable [phone] Esha Grimm PA-C Primary Care Provider Cheng Todd PA-C Unavailable Radha Lomeli APRN RESEARCH ASST Unavailable [phone] Jelena David OD Unavailable Pao Joseph RN Unavailable Unavailable Esha Grimm PA-C Unavailable Valery Veronica PA-C Unavailable [phone] Rey Tay MD Unavailable Rocky Zepeda DO Unavailable Philip Dumont MD Unavailable [phone] Meredith Carrera PA-C Unavailable Neil Kent MD Unavailable Juan Pablo Emmanuel MD Unavailable [phone] Encounter Details Date Type Department Care Team (Late st Contact Info) Description 11/16/2021 MyC Medical Advice [address] [address] Diana Desir, [facility] [address] [place] [address] Social History Tobacco Use Types Packs/Day Years [...] How often do you attend yazidism or episcopalian serv ices? Never 09/22/2021 Do you belong [...] Answer Date Recorded PHQ-2 Score 2 09/22/2021 [facility] of Occupat ional Health - Occupational Stress [...] in a correction (including now)? No 09/22/2021 [place] Depression Scale Answer Date Recorded [place] Depression Score 5 01/14/2021 Last EPDS Self [...] 02/14/2024 12:50 PM CDT Therapy Visit [address] [address] Rustam Medina, PT [facility] [address] [place] [address] 03/06/2024 3:00 PM CDT Office Visit [facility] [place] [address] [facility] [address] [place] [phone] Radha Lomeli, BISQUE FINISHER RESEARCH ASST [address] [place] [address] 03/07/2024 9:00 AM CDT Hospital Encounter [facility] [address] [facility] [address] 5th [place] [address] Rocky Zepeda DO 500 [place], [place] 346585 03/07/2024 9:00 AM CDT - 03/07/2024 9:30 AM CDT Surgery [facility] [address] [facility] [address] 5th [place] [phone] Rocky Zepeda, 500 [place] [address] Esophagoscopy, gastroscopy, duodenoscopy (EGD), combined 06/21/2024 2:00 PM MANAGER ELIGIBILITY Office Visit [facility] [address] [facility], [address] [place] [address] [place] [address] [place] [address] Johnny Penn MD [address] [place] [address] Scheduled Procedures Name Priority Associated Diagnoses [...] COVID-19 05/17/2022 05/17/2022 05/17/2022 10:20 PM MANAGER ELIGIBILITY Rule Out COVID-19 06/09/2022 06/09/2022 06/09/2022 9:35 AM MANAGER ELIGIBILITY COVID-19 06/09/2022 06/09/2022 06/30/2022 11:4 1 PM MANAGER ELIGIBILITY Rule Out COVID-19 11/10/2022 11/10/2022 11/11/2022 12:17 PM CDT Rule Out COVID-19 03/07/2023 03/07/2023 03/07/2023 1:20 PM CDT Rule Out COVID-19 12/26/2023 12/26/2023 12/26/2023 9:50 AM CDT Assessment Noted Time PHQ-9 Depression Total Score: 2 04/02/20 10:19 AM CDT documented as of this encounter Care Teams Supervisor Shipfitters Relationship Specialty Start Date End Date Marija Edgar APRN RESEARCH ASST PCP - General Nurse Practitioner 04/30/20 04/14/23 Esha Grimm PA-C [address] [place] [phone] PCP - General Family Medicine 05/04/23 Lita Oseguera Personal Advocate & Liaison (PAL) 02/28/20 03/27/23 Marija Edgar APRN RESEARCH ASST Assigned PCP 06/08/20 04/29/23 Mynor Broussard MD [address] 730225 Assigned Surgical Provider 06/01/20 11/28/21 Keisha Dotson MD 909 [place], [place] 367815 Assigned Neuroscience Provider 06/04/20 04/01/23 Galo Burrell MD Assigned Heart and Vascular Provider 10/05/20 04/02/22 Diana Desir [facility] [address] [place], [place] 166046 Pharmacist Pharmacist 04/17/21 Rain Galaviz PA-C [address] [place] [address] [place] [address] Physician Plate Molder Dermatology 04/28/21 Summer Lara MD [address] [place] [address] Assigned OBGYN Provider 05/31/21 2 Tavia Wyatt MD [address] [place] [address] Dermatology 07/14/21 Johnny Murillo MD [address] [address] Assigned Musculoskeletal Provider 08/30/21 03/17/22 Erica Farrell APRN RESEARCH ASST [address] [facility] [address] [place] [address] Nurse Practitioner Cardiovascular Disease 09/09/21 Tavia Wyatt MD Assigned Surgical Provider 11/29/21 05/07/22 Diana Desir, [facility] [address] [place] [address] Assigned MTM Pharmacist 01/02/22 Rich Barrett MD [address] [facility], [address] 0730[address] Physician Ophthalmology 01/21/22 Neil Kent MD [address] [place] [address] Dermatology 02/24/22 [place] D[place] [address] [facility] [address] [place], [place] 9597[address] Assigned Musculoskeletal Provider 03/20/22 08/13/22 Erica Farrell APRN RESEARCH ASST 1700 [place] [address] Assigned Heart and Vascular Provider 04/03/22 04/16/22 Diana Desir, [facility] [address] [place], [place] 148076 Assigned MTM Pharmacist 04/07/22 Jelena David OD [address] [place] [address] Assigned Surgical Provider 05/08/22 10/08/22 Galo Burrell MD Assigned Heart and Vascular Provider 04/17/22 06/11/22 Livan Sharif MD [address] [facility] [place] [address] Cardiovascular Disease 05/14/22 Livan Sharif MD [address] [facility] [place] [address] Assigned Heart and Vascular Provider 06/12/22 07/23/22 Catherine Cm MD [address] [facility]00 [place], [place] 947425 Cardiovascular Disease 07/21/22 Valery Veronica, PA-C [address] [place] [address] Physician Plate Molder Dermatology 07/21/22 Catherine Cm MD [address] [facility] [place] [address] Assigned Heart and Vascular Provider 07/24/22 11/05/22 Johnny Murillo MD [facility] [address] Assigned Musculoskeletal Provider 08/14/22 10/08/22 Brea Quinn APRN RESEARCH ASST [address] [place] [address] 189685 Nurse Practitioner Dermatology 09/21/22 Brea Quinn APRN RESEARCH ASST [address] [place] [address] 332782 Assigned Surgical Provider 10/09/22 [place] [address] [address] Assigned Musculoskeletal Provider 10/09/22 Livan Sharif MD [address], [facility] [place] [address] Assigned Heart and Vascular Provider 11/06/22 11/12/22 Catherine Cm MD [address] [facility] [place] [address] Assigned Heart and Vascular Provider 11/13/22 05/27/23 Sydnie Martinez RN Personal Advocate & Liaison (PAL) Family Medicine 03/28/23 07/31/23 Alfonso Renteria MD [address] [facility] [address] [place] [address] Assigned Neuroscience Provider 04/02/23 Cheng Todd PA-C [address] [place] [address] Assigned PCP 04/30/23 07/15/23 Radha Lomeli APRN RESEARCH ASST [address] [facility] [address] [place] [address] Assigned Heart and Vascular Provider 05/28/23 Jelena David OD [address] [place] [address] Ophthalmology 06/15/23 Pao Joseph, VJ Personal Advocate & Liaison (PAL) Nurse 08/01/23 11/07/23 Esha Grimm PA-C [address] [place] [address] Assigned PCP 07/16/23 Valery Veronica PA-C [address] [place] [address] 788845 Physician Plate Molder Dermatology 09/19/23 Rey Tay MD [address] [place] [address] 021065 Gastroenterology 09/20/23 Rocky Zepeda DO [address] [place] [address] Physician Gastroenterology 09/20/23 Philip Dumont MD 516 [place] [address] Physician Ophthalmology 09/22/23 Meredith Carrera PA-C [address] [place] [address] Assigned Gastroenterology Provider 11/01/23 Neil Kent MD [address] [address] Dermatology 11/02/23 [place] [address] [place] [address] Neurological Surgery 12/26/23 documented as of this encounter
--- OUTSIDE RECORDS SUMMARY | 2024-02-12 05:50 | XMS_ITS | Encounter Summary ---
Author Organization [facility] Address [address] [place] [address] Care Team Providers Care Animal Skinner Name Role Phone Lita Oseguear Unavailable Unavailable Marija Edgar APRN AERONAUTICAL ENGINEERING OFFICER Primary Care Provider U Marija Bella APRN AERONAUTICAL ENGINEERING OFFICER Unavailable Unavail able Keisha Dotson MD Unavailable Galo Burrell MD Unavailable Unavailable Diana Desir [facility] Unavailable Rain Galaviz PA-C Unavailable Summer Lara MD Unavailable [phone] Tavia Wyatt MD Unavailable Unavailable Johnny Murillo MD Unavailable Erica Farrell APRN AERONAUTICAL ENGINEERING OFFICER Unavailable Tavia Wyatt MD Unavailable Unavailable Diana Desir [facility] Unavailable [phone] Rich Barrett MD Unavailable [phone] Neil Kent MD Unavailable Roney Story DPM Unavailable [phone] Erica Farrell STEEL HEATER AERONAUTICAL ENGINEERING OFFICER Unavailable Diana Desir [facility] Unavailable [phone] Frankie, Jelena Radha OD Unavailable Galo Burrell MD Unavailable Unavailable Livan Sharif MD Unavailable + Livan Sharif MD Unavailable + IsCatherine hobbs MD Unavailable + Valery Veronica PA-C Unavailable [phone] Catherine Cm MD Unavailable + Johnny Murillo MD Unavailable [phone] Brea Quinn STEEL HEATER AERONAUTICAL ENGINEERING OFFICER Unavailable [phone] Brea Quinn STEEL HEATER AERONAUTICAL ENGINEERING OFFICER Unavailable [phone] Jose Francisco Johnson MD Unavailable Livan Sharif MD Unavailable + Catherine Cm MD Unavailable + Sydnie Martinez RN Unavailable Unavailable Alfonso Renteria MD Unavailable Esha Grimm PA-C Primary Care Provider Cheng Todd PA-C Unavailable Radha Lomeli STEEL HEATER AERONAUTICAL ENGINEERING OFFICER Unavailable [phone] Jelena David OD Unavailable [phone] Pao Joseph RN Unavailable Unavailable Esha Grimm PA-C Unavailable [phone] Valery Veronica PA-C Unavailable [phone] Rey Tay MD Unavailable Rocky Zepeda DO Unavailable Philip Dumont MD Unavailable [phone] Meredith Carrera PA-C Unavailable [phone] Neil Kent MD Unavailable Juan Pablo Emmanuel MD Unavailable Encounter Details Date Type Department Care Team (Late st Contact Info) Description 12/03/2021 MyC Medical Advice [address] [phone] Debbie Hdez MA Social History Tobacco Use [...] How often do you attend nondenominational or jew serv ices? Never 09/22/2021 Do [...] Answer Date Recorded PHQ-2 Score 2 09/22/2021 [facility] of Occupat ional [...] in a prison (including now)? No 09/22/2021 [place] Depression Scale Answer Date Recorded [place] Depression Score 5 01/14/2021 Last EPDS Self [...] 02/14/2024 12:50 PM CDT Therapy Visit [facility] Rehabilitation Services [address] [address] Rustam Medina, PT [facility] [address] [place] [address] 03/06/2024 3:00 PM CDT Office Visit [facility] [place] [address] [facility] [address] [place] [phone] Radha Lomeli APRN AERONAUTICAL ENGINEERING OFFICER [address] [place], [place] [address] 03/07/2024 9:00 AM CDT Hospital Encounter [address] [phone] Rocky Zepeda DO 500 [place], [place] 201275 03/07/2024 9:00 AM CDT - 03/07/2024 9:30 AM CDT Surgery [address] [phone] Rocky Zepeda DO 500 [place] [address] Esophagoscopy, gastroscopy, duodenoscopy (EGD), combined 06/21/2024 2:00 PM MARKETING ADMINISTRATIVE ASSISTANT Office Visit [facility] Neurology [facility] [address] [facility], [address] [place] [address] [place] [address] [place] [address] Johnny Penn MD [address] [place] [address] Scheduled Procedures Name Priority Associated [...] Out COVID-19 05/17/2022 05/17/2022 05/17/2022 10:20 PM MARKETING ADMINISTRATIVE ASSISTANT Rule Out COVID-19 06/09/2022 06/09/2022 06/09/2022 9:35 AM MARKETING ADMINISTRATIVE ASSISTANT COVID-19 06/09/2022 06/09/2022 06/30/2022 11:4 1 PM MARKETING ADMINISTRATIVE ASSISTANT Rule Out COVID-19 11/10/2022 11/10/2022 11/11/2022 12:17 PM CDT Rule Out COVID-19 03/07/2023 03/07/2023 03/07/2023 1:20 PM CDT Rule Out COVID-19 12/26/2023 12/26/202312/26/2023 9:50 AM CDT Assessment Noted Time PHQ-9 Depression Total Score: 2 04/02/20 10:19 AM CDT documented as of this encounter Care Teams Animal Skinner Relationship Specialty Start Date End Date Marija Edgar APRN AERONAUTICAL ENGINEERING OFFICER PCP - General Nurse Practitioner 04/30/20 04/14/23 Esha Grimm PA-C [address] [place] [address] PCP - General Family Medicine 05/04/23 Lita Oseguera Personal Advocate & Liaison (PAL) 02/28/20 03/27/23 Marija Edgar APRN AERONAUTICAL ENGINEERING OFFICER Assigned PCP 06/08/20 04/29/23 Keisha Dotson MD 909 [place], [place] [address] Assigned Neuroscience Provider 06/04/20 04/01/23 Galo Burrell MD Assigned Heart and Vascular Provider 10/05/20 04/02/22 Diana Desir, [facility] [address] [place] [address] Pharmacist Pharmacist 04/17/21 Rain Galaviz PA-C [address] [place] [address] [place] [address] Physician Bushler Dermatology 04/28/21 Summer Lara MD [address], [place] [address] Assigned OBGYN Provider 05/31/21 2 Tavia Wyatt MD [address] [place] [address] Dermatology 07/14/21 Johnny Murillo MD [address] [place] [address] Assigned Musculoskeletal Provider 08/30/21 03/17/22 Erica Farrell APRN AERONAUTICAL ENGINEERING OFFICER [address] [facility] [address] [place] [address] Nurse Practitioner Cardiovascular Disease 09/09/21 Tavia Wyatt MD Assigned Surgical Provider 11/29/21 05/07/22 Diana Desir, [facility] [address] [place] [address] Assigned MTM Pharmacist 01/02/22 Rich Barrett MD 516 [facility] [address] [place], [place] [address] Physician Ophthalmology 01/21/22 Neil Kent MD 500 [place] [address] Dermatology 02/24/22 Roney Story DPM [address] [facility] [address] [place], [place] [address] Assigned Musculoskeletal Provider 03/20/22 08/13/22 Erica Farrell APRN AERONAUTICAL ENGINEERING OFFICER [address] [place] [address] Assigned Heart and Vascular Provider 04/03/22 04/16/22 Diana Desir, [facility] [address] [place], [place] [address] Assigned MTM Pharmacist 04/07/22 Jelena David OD [address] [facility] [address] Assigned Surgical Provider 05/08/22 10/08/22 Galo Burrell MD Assigned Heart and Vascular Provider 04/17/22 06/11/22 Livan Sharif MD [address] [place] [address] Cardiovascular Disease 05/14/22 Livan Sharif MD [address], [address] [place] [address] Assigned Heart and Vascular Provider 06/12/22 07/23/22 Catherine Cm MD [address] [place] [address] Cardiovascular Disease 07/21/22 Valery Veronica PA-C 909 [place], [place] [address] Physician Bushler Dermatology 07/21/22 Catherine Cm MD [address] [place] [address] Assigned Heart and Vascular Provider 07/24/22 11/05/22 Johnny Murillo MD [address] [facility] [address] [place] [address] Assigned Musculoskeletal Provider 08/14/22 10/08/22 Brea Quinn APRN AERONAUTICAL ENGINEERING OFFICER 500 [place] [address] Nurse Practitioner Dermatology 09/21/22 Brea Quinn APRN AERONAUTICAL ENGINEERING OFFICER 64[address] [place] [address] Assigned Surgical Provider 10/09/22 [place] [address] [address] Assigned Musculoskeletal Provider 10/09/22 Livan Sharif MD [address] [facility] [address] [place] [address] Assigned Heart and Vascular Provider 11/06/22 11/12/22 Catherine Cm MD [address] [facility] [address] [place], [place] [address] Assigned Heart and Vascular Provider 11/13/22 05/27/23 Sydnie Martinez RN Personal Advocate & Liaison (PAL) Family Medicine 03/28/23 07/31/23 Alfonso Renteria MD [address] [facility] 200 [place] [address] Assigned Neuroscience Provider 04/02/23 Cheng Todd PA-C [address] [place] [address] [id number] Assigned PCP 04/30/23 07/15/23 Radha Lomeli APRN CNP [address] [place] [address] Assigned Heart and Vascular Provider 05/28/23 Jelena David OD [address] [facility] [address] MD Ophthalmology 06/15/23 Pao Joseph, RN Personal Advocate & Liaison (PAL) Nurse 08/01/23 11/07/23 Esha Grimm PA-C [address] [place] [phone] Assigned PCP 07/16/23 Valery Veronica PA-C [address] [place] [address]2825 Physician Bushler Dermatology 09/19/23 Rey Tay MD [address] [place] [address] MD Gastroenterology 09/20/23 Rocky Zepeda DO [address] [place] [address] 729175 Physician Gastroenterology 09/20/23 Philip Dumont MD [address] [place] [address] 807365 Physician Ophthalmology 09/22/23 Meredith Carrera PA-C [address] [place] [address] 136375 Assigned Gastroenterology Provider 11/01/23 Neil Kent MD [address] [place] [address] Dermatology 11/02/23 [place] [address] [address] 362677 Neurological Surgery 12/26/23 documented as of this encounter
--- OUTSIDE RECORDS SUMMARY | 2024-02-12 05:50 | XMS_ITS | Encounter Summary ---
Author Organization [facility] Address [address] [place] [address] Care Team Providers Care Paint Spray Tender Name Role Phone Lita Oseguera Unavailable Unavailable Marija Edgar APRN MASTER MOTORCYCLE TECHNICIAN Primary Care Provider U Marija Bella APRN MASTER MOTORCYCLE TECHNICIAN Unavailable Unavail able Keisha Dotson MD Unavailable [phone] Galo Burrell MD Unavailable Unavailable Diana Desir [facility] Unavailable [phone] Rain Galaviz PA-C Unavailable Summer Lara MD Unavailable [phone] Tavia Wyatt MD Unavailable Unavailable Johnny Murillo MD Unavailable [phone] Erica Farrell APRN MASTER MOTORCYCLE TECHNICIAN Unavailable Tavia Wyatt MD Unavailable Unavailable Diana Desir [facility] Unavailable Rich Barrett MD Unavailable [phone] Neil Kent MD Unavailable Roney Story DPM Unavailable [phone] Erica Farrell PRECISION CROP MANAGER MASTER MOTORCYCLE TECHNICIAN Unavailable Diana Desri [facility] Unavailable [phone] Frankie, Jelena Radha OD Unavailable Galo Burrell MD Unavailable Unavailable Livan Sharif MD Unavailable + Livan Sharif MD Unavailable + IsCatherine hobbs MD Unavailable + Valery Veronica PA-C Unavailable [phone] Catherine Cm MD Unavailable + Johnny Murillo MD Unavailable [phone] Brea Quinn PRECISION CROP MANAGER MASTER MOTORCYCLE TECHNICIAN Unavailable [phone] Brea Quinn PRECISION CROP MANAGER MASTER MOTORCYCLE TECHNICIAN Unavailable [phone] Jose Francisco Johnson MD Unavailable Livan Sharif MD Unavailable + Catherine Cm MD Unavailable + Sydnie Martinez RN Unavailable Unavailable Alfonso Renteria MD Unavailable Esha Grimm PA-C Primary Care Provider Cheng Todd PA-C Unavailable Radha Lomeli PRECISION CROP MANAGER MASTER MOTORCYCLE TECHNICIAN Unavailable [phone] Jelena David OD Unavailable [phone] Pao Joseph RN Unavailable Unavailable Esha Grimm PA-C Unavailable [phone] Valery Veronica PA-C Unavailable [phone] Rey Tay MD Unavailable Rocky Zepeda DO Unavailable Philip Dumont MD Unavailable [phone] Meredith Carrera PA-C Unavailable [phone] Neil Kent MD Unavailable Juan Pablo Emmanuel MD Unavailable [phone] Encounter Details Date Type Department Care Team (Late st Contact Info) Description 12/03/2021 MyC Medical Advice [facility] [address], [address] [place] [address] Keisha Dotson MD 9 [place] [address] Social History Tobacco Use Types [...] How often do you attend alevism or yarsanism serv ices? Never 09/22/2021 Do you belong [...] Date Recorded PHQ-2 Score 2 09/22/2021 [facility] [place] - Occupational Stress Questionnaire Answer Date [...] in a jail (including now)? No 09/22/2021 [place] Depression Scale Answer Date Recorded [place] [...] CDT Therapy Visit [facility] [address] [address] Rustam Medina, PT [facility] [id number] [place] [address] 03/06/2024 3:00 PM CDT Office Visit [facility] [place] [address] [facility] [address] [place] [address] Radha Lomeli, PRECISION CROP MANAGER MASTER MOTORCYCLE TECHNICIAN [address] [place] [address] 03/07/2024 9:00 AM CDT Hospital Encounter [facility] [address] [facility] [address] 5th [place] [phone] Rocky Zepeda DO 500 [place] [address] 03/07/2024 9:00 AM CDT - 03/07/2024 9:30 AM CDT Surgery [place] [address] [facility] [address] 5th [place] [phone] Rocky Zepeda, DO 500 [facility] [place] [address] Esophagoscopy, gastroscopy, duodenoscopy (EGD), combined 06/21/2024 2:00 PM FLOOR INSTALLER Office Visit [facility] [place] [address] [facility], [address] [place] [address] [place] [address] [place] [address] Johnny Penn MD [address] [place] [address] Scheduled Procedures Name Priority Associated [...] Out COVID-19 05/17/2022 05/17/2022 05/17/2022 10:20 PM FLOOR INSTALLER Rule Out COVID-19 06/09/2022 06/09/2022 06/09/2022 9:35 AM FLOOR INSTALLER COVID-19 06/09/2022 06/09/2022 06/30/2022 11:4 1 PM FLOOR INSTALLER Rule Out COVID-19 11/10/2022 11/10/2022 11/11/2022 12:17 PM CDT Rule Out COVID-19 03/07/2023 03/07/2023 03/07/2023 1:20 PM CDT Rule Out COVID-19 12/26/2023 12/26/2023 12/26/2023 9:50 AM CDT Assessment Noted Time PHQ-9 Depression Total Score: 2 04/02/20 10:19 AM CDT documented as of this encounter Care Teams Paint Spray Tender Relationship Specialty Start Date End Date Marija Edgar APRN MASTER MOTORCYCLE TECHNICIAN PCP - General Nurse Practitioner 04/30/20 04/14/23 Esha Grimm PA-C [address] [place] [address] PCP - General Family Medicine 05/04/23 Lita Oseguera Personal Advocate & Liaison (PAL) 02/28/20 03/27/23 Marija Edgar APRN MASTER MOTORCYCLE TECHNICIAN Assigned PCP 06/08/20 04/29/23 Keisha Dotson MD 909 [place], [place] 5804[address] Assigned Neuroscience Provider 06/04/20 04/01/23 Galo Burrell MD Assigned Heart and Vascular Provider 10/05/20 04/02/22 Diana Desir, [facility] [address] [place] [address] Pharmacist Pharmacist 04/17/21 Rain Galaviz PA-C [address] [place] [address] [place] [address] Physician Blanchard Grinder Operator Dermatology 04/28/21 Summre Lara MD [address] [place] [address] 730374 Assigned OBGYN Provider 05/31/21 2 Tavia Wyatt MD [address] [place] [address] Dermatology 07/14/21 Johnny Murillo MD [address] [place] [address] Assigned Musculoskeletal Provider 08/30/21 03/17/22 Erica Farrell APRN MASTER MOTORCYCLE TECHNICIAN [address] [place], [place] [address] Nurse Practitioner Cardiovascular Disease 09/09/21 Tavia [place] MD Assigned Surgical Provider 11/29/21 05/07/22 [facility] 3033 [place] [address] Assigned MTM Pharmacist 01/02/22 Rich Barrett MD [address] [facility] [address] [place], [place] [address] Physician Ophthalmology 01/21/22 Neil Kent MD 500 [place], [place] 2210[address] Dermatology 02/24/22 Roney Story DPM [address] [facility] [address] [place], [place] [address] Assigned Musculoskeletal Provider 03/20/22 08/13/22 Erica Farrell APRN MASTER MOTORCYCLE TECHNICIAN 1700 [place] [address] Assigned Heart and Vascular Provider 04/03/22 04/16/22 Diana Desir, [facility] 30[address] [place] [address] Assigned MTM Pharmacist 04/07/22 Jelena David OD [address] [facility] [place] [place] [address] Assigned Surgical Provider 05/08/22 10/08/22 Galo Burrell MD Assigned Heart and Vascular Provider 04/17/22 06/11/22 Livan Sharif MD [address] [place] [address] Cardiovascular Disease 05/14/22 Livan Sharif MD [address] [place] [address] Assigned Heart and Vascular Provider 06/12/22 07/23/22 Catherine Cm MD [address] [place] [address] Cardiovascular Disease 07/21/22 Valery Veronica PA-C 909 [place], [place] 38[address] Physician Blanchard Grinder Operator Dermatology 07/21/22 Catherine Cm MD [address] [place] [address] Assigned Heart and Vascular Provider 07/24/22 11/05/22 Johnny Murillo MD [facility] [address] [address] Assigned Musculoskeletal Provider 08/14/22 10/08/22 Brea Quinn APRN MASTER MOTORCYCLE TECHNICIAN 500 [place] [address] Nurse Practitioner Dermatology 09/21/22 Brea Quinn APRN MASTER MOTORCYCLE TECHNICIAN [address] [place] [address] Assigned Surgical Provider 10/09/22 [place] [address] [address] Assigned Musculoskeletal Provider 10/09/22 Livan Sharif MD [address] [facility] [address] [place] [address] Assigned Heart and Vascular Provider 11/06/22 11/12/22 Catherine Cm MD [address] [place] [address] Assigned Heart and Vascular Provider 11/13/22 05/27/23 Sydnie Martinez RN Personal Advocate & Liaison (PAL) Family Medicine 03/28/23 07/31/23 Alfonso Renteria MD [address] [facility] 200 [place], [place] 7[address]166 Assigned Neuroscience Provider 04/02/23 Cheng Todd PA-C [address] [place] [address] Assigned PCP 04/30/23 07/15/23 Radha Lomeli APRN MASTER MOTORCYCLE TECHNICIAN [address] [facility] [address] [place] [address] Assigned Heart and Vascular Provider 05/28/23 Jelena David OD [address] [facility] [address] [place] [phone] Ophthalmology 06/15/23 Pao Joseph, RN Personal Advocate & Liaison (PAL) Nurse 08/01/23 11/07/23 Esha Grimm PA-C [address] [place] [phone] Assigned PCP 07/16/23 Valery Veronica PA-C [address] [place] [address] 048765 Physician Blanchard Grinder Operator Dermatology 09/19/23 Rey Tay MD [address] [place] [address] 755345 MD Gastroenterology 09/20/23 Rocky Zepeda DO [address] [place] [address] [phone] Physician Gastroenterology 09/20/23 Philip Dumont MD [address] [place] [address] 259145 Physician Ophthalmology 09/22/23 Meredith Carrera PA-C 909 [place] [address] Assigned Gastroenterology Provider 11/01/23 Neil Kent MD [address] 082960 Dermatology 11/02/23 [place] [address] [place] [address] 950837 Neurological Surgery 12/26/23 documented as of this encounter
--- OUTSIDE RECORDS SUMMARY | 2024-02-12 05:50 | XMS_ITS | Encounter Summary ---
Author Organization [facility] Address [address] [place] [address] Care Team Providers Care Director Of Transportation Name Role Phone Lita Oseguera Unavailable Unavailable Marija Edgar APRN HUMAN RESOURCES OFFICE MANAGER Primary Care Provider U Marija eBlla APRN HUMAN RESOURCES OFFICE MANAGER Unavailable Unavail able Keisha Dotson MD Unavailable Galo Burrell MD Unavailable Unavailable Diana Desir [facility] Unavailable [phone] Rain Galaviz PA-C Unavailable Summer Lara MD Unavailable [phone] Tavia Wyatt MD Unavailable Unavailable Johnny Murillo MD Unavailable Erica Farrell APRN HUMAN RESOURCES OFFICE MANAGER Unavailable Tavia Wyatt MD Unavailable Unavailable Diana Desir [facility] Unavailable Rich Barrett MD Unavailable [phone] Neil Kent MD Unavailable Roney Story DPM Unavailable [phone] Erica Farrell CASINO HOST HUMAN RESOURCES OFFICE MANAGER Unavailable Diana Desir [facility] Unavailable [phone] Frankie, Jelena Radha OD Unavailable Galo Burrell MD Unavailable Unavailable Livan Sharif MD Unavailable + Livan Sharif MD Unavailable + IsCatherine hobbs MD Unavailable + Valery Veronica PA-C Unavailable [phone] Catherine Cm MD Unavailable + Johnny Murillo MD Unavailable [phone] Brea Quinn CASINO HOST HUMAN RESOURCES OFFICE MANAGER Unavailable [phone] Brea Quinn CASINO HOST HUMAN RESOURCES OFFICE MANAGER Unavailable [phone] Jose Francisco Johnson MD Unavailable Livan Sharif MD Unavailable + Catherine Cm MD Unavailable + Sydnie Martinez RN Unavailable Unavailable Alfonso Renteria MD Unavailable Esha Grimm PA-C Primary Care Provider Cheng Todd PA-C Unavailable Radha Lomeli CAS[employer] HOST HUMAN RESOURCES OFFICE MANAGER Unavailable [phone] Jelena David OD Unavailable [phone] Pao Joseph RN Unavailable Unavailable Esha Grimm PA-C Unavailable [phone] Valery Veronica PA-C Unavailable [phone] Rey Tay MD Unavailable Rocky Zepeda DO Unavailable Philip Dumont MD Unavailable [phone] Meredith Carrera PA-C Unavailable [phone] Neil Kent MD Unavailable Juan Pablo Emmanuel MD Unavailable Encounter Details Date Type Department Care Team (Late st Contact Info) Description 12/18/[address] [facility] [address] [place] [address] Lauren Claudio, PAUcheC [address] [place] [address] Social History Tobacco Use Types [...] How often do you attend mormonism or zoroastrian serv ices? Never 09/22/2021 Do [...] Answer Date Recorded PHQ-2 Score 2 12/18/2021 [facility] [place] [facility] Occup[facility] - Occupational Stress [...] in a detention (including now)? No 09/22/2021 [place] Depression Scale Answer Date Recorded [place] Depression Score 5 01/14/2021 Last EPDS Self [...] be reached at: Home number on file [phone] (home) Best Time: ANYTIME Can we leave a detailed message on this number? YES Call taken on 12/18/2021 at 11:01 AM by Amalia Deluca documented in this encounter Plan of Treatment Upcoming Encounters Date Type Department Care Team (Latest Contact Info) Description 02/14/2024 12:50 PM CDT Therapy Visit [address] [address] Rustam Medina, PT [facility] [id number] [place] [address] 03/06/2024 3:00 PM CDT Office Visit [facility] [address] [place] [phone] Armani Radha Sia, CASINO HOST HUMAN RESOURCES OFFICE MANAGER [address] [place] 28[address] 03/07/2024 9:00 AM CDT Hospital Encounter [address] 5th [place] [phone] Rocky Zepeda DO 500 [place], [place] [address] 03/07/2024 9:00 AM CDT - 03/07/2024 9:30 AM CDT Surgery [address] 5th [place] [phone] Rocky Zepeda DO 500 [place], [place] 3038[address] Esophagoscopy, gastroscopy, duodenoscopy (EGD), combined 06/21/2024 2:00 PM DIRECTOR OF AVIATION Office Visit [facility] - [address], [address] [place] [phone] [place] [address] [place], [place] 148667 Johnny Penn MD [address] [place] [address] Scheduled Procedures Name Priority Associated Diagnoses Date/Ti [...] COVID-19 05/17/2022 05/17/2022 05/17/2022 10:20 PM DIRECTOR OF AVIATION Rule Out COVID-19 06/09/2022 06/09/2022 06/09/2022 9:35 AM DIRECTOR OF AVIATION COVID-19 06/09/2022 06/09/2022 06/30/2022 11:4 1 PM DIRECTOR OF AVIATION Rule Out COVID-19 11/10/2022 11/10/2022 11/11/2022 12:17 PM CDT Rule Out COVID-19 03/07/2023 03/07/2023 03/07/2023 1:20 PM CDT Rule Out COVID-19 12/26/2023 12/26/2023 12/26/2023 9:50 AM CDT Assessment Noted Time PHQ-9 Depression Total Score: 2 12/19/19 2:50 PM CDT documented as of this encounter Care Teams Director Of Transportation Relationship Specialty Start Date End Date Marija Edgar APRN HUMAN RESOURCES OFFICE MANAGER PCP - General Nurse Practitioner 04/30/20 04/14/23 Esha Grimm PA-C [address] [place] [phone] PCP - General Family Medicine 05/04/23 Lita Oseguera Personal Advocate & Liaison (PAL) 02/28/20 03/27/23 Marija Edgar APRN HUMAN RESOURCES OFFICE MANAGER Assigned PCP 06/08/20 04/29/23 Keisha Dotson MD 909 [place] [address] Assigned Neuroscience Provider 06/04/20 04/01/23 Galo Burrell MD Assigned Heart and Vascular Provider 10/05/20 04/02/22 Diana Desir, [facility] 3033 [place] [address] Pharmacist Pharmacist 04/17/21 Rain Galaviz PA-C [address] [place] [address] [place] [address] Physician Conference Planning Manager Dermatology 04/28/21 Summer Lraa MD [address] [place] [address] Assigned OBGYN Provider 05/31/21 2 Tavia Wyatt MD [address] [address] Dermatology 07/14/21 Johnny Murillo MD [facility] [address] [place] [address] Assigned Musculoskeletal Provider 08/30/21 03/17/22 Erica Farrell APRN HUMAN RESOURCES OFFICE MANAGER [address] [facility] [address] [place] [address] Nurse Practitioner Cardiovascular Disease 09/09/21 Tavia Wyatt MD Assigned Surgical Provider 11/29/21 05/07/22 Diana Desir, [facility] [address] [place] [address] Assigned MTM Pharmacist 01/02/22 Rich Barrett MD [address] [place] [address] CLINIC [address]A [place] [address] Physician Ophthalmology 01/21/22 Neil Kent MD 500 [place] [address] Dermatology 02/24/22 Roney Story DPM [address] [facility] [address] [place] [address] Assigned Musculoskeletal Provider 03/20/22 08/13/22 Erica Farrell APRN HUMAN RESOURCES OFFICE MANAGER [address]00 [place] [address] Assigned Heart and Vascular Provider 04/03/22 04/16/22 [facility] [address]33 [place] [address] Assigned MTM Pharmacist 04/07/22 Jelena David OD [address] [place] [address] Assigned Surgical Provider 05/08/22 10/08/22 Galo Burrell MD Assigned Heart and Vascular Provider 04/17/22 06/11/22 Livan Sharif MD [address] [place] 1649[address] Cardiovascular Disease 05/14/22 Livan Sharif MD [address] [place] 250145 Assigned Heart and Vascular Provider 06/12/22 07/23/22 Catherine Cm MD [address] [facility]00 [place] [address] Cardiovascular Disease 07/21/22 Valery Veronica, PA-C [address] [place] [address] 333985 Physician Conference Planning Manager Dermatology 07/21/22 Catherine Cm MD [address] [place] 6[address] Assigned Heart and Vascular Provider 07/24/22 11/05/22 Johnny Murillo MD [address] [place] [address] Assigned Musculoskeletal Provider 08/14/22 10/08/22 Brea Quinn APRN HUMAN RESOURCES OFFICE MANAGER [address] [place] [address] 364585 Nurse Practitioner Dermatology 09/21/22 Brea Quinn APRN HUMAN RESOURCES OFFICE MANAGER [address] [place] [address] [place] [address] Assigned Surgical Provider 10/09/22 [place] [address] [place] [address] Assigned Musculoskeletal Provider 10/09/22 Livan Sharif MD [address] [address] [place] 6[address]25 Assigned Heart and Vascular Provider 11/06/22 11/12/22 Catherine Cm MD [address] [place] [address] Assigned Heart and Vascular Provider 11/13/22 05/27/23 Sydnie Martinez RN Personal Advocate & Liaison (PAL) Family Medicine 03/28/23 07/31/23 Alfonso Renteria MD [address] [facility] [address] [place], [place] 05[address] Assigned Neuroscience Provider 04/02/23 Cheng Todd PA-C [address] [place] [address] [id number] Assigned PCP 04/30/23 07/15/23 Radha Lomeli APRN HUMAN RESOURCES OFFICE MANAGER [address] [place] [address] Assigned Heart and Vascular Provider 05/28/23 Jelena David OD [address] [place] [address] Ophthalmology 06/15/23 Pao Joseph, JV Personal Advocate & Liaison (PAL) Nurse 08/01/23 11/07/23 Esha Grimm PA-C [address] [place] [address] Assigned PCP 07/16/23 Valery Veronica PA-C [address] [place] [address] Physician Conference Planning Manager Dermatology 09/19/23 Rey Tay MD [address] [place], [place] 8998[address] MD Gastroenterology 09/20/23 Rocky Zepeda DO [address] [place] [address] Physician Gastroenterology 09/20/23 Philip Dumont MD [address] [place] [address] Physician Ophthalmology 09/22/23 Meredith Carrera, PALOMAC [address] [place] [address] Assigned Gastroenterology Provider 11/01/23 Neil Kent MD [address] [address] Dermatology 11/02/23 [place] [address] [facility] [address] Neurological Surgery 12/26/23 documented as of this encounter
--- OUTSIDE RECORDS SUMMARY | 2024-02-12 05:51 | XMS_ITS | Encounter Summary ---
Author Organization [facility] Address [address] [place] [address] Care Team Providers Care Advertising Strategist Name Role Phone Lita Oseguera Unavailable Unavailable Marija Edgar APRN CRANE ASSEMBLER Primary Care Provider U Marija Bella APRN CRANE ASSEMBLER Unavailable Unavail able Mynor Broussard MD Unavailable [phone] Keisha Dotson MD Unavailable [phone] Galo Burrell MD Unavailable Unavailable Diana Desir [facility] Unavailable Rain Galaviz PA-C Unavailable [phone] Summer Lara MD Unavailable [phone] Tavia Wyatt MD Unavailable Unavailable Johnny Murillo MD Unavailable Erica Farrell APRN CRANE ASSEMBLER Unavailable Teresita Bean [facility] Unavailable [phone] Tavia Wyatt MD Unavailable Unavailable Diana Desir [facility] Unavailable [phone] Rich Barrett MD Unavailable Neil Kent MD Unavailable Roney Story DPM Unavailable [phone] Erica Farrell APRN CRANE ASSEMBLER Unavailable + Diana Desir [facility] Unavailable [phone] Jelena David OD Unavailable Galo Burrell MD Unavailable Unavailable Livan Sharif MD Unavailable Livan Sharif MD Unavailable IsCatherine hobbs MD Unavailable + Valery Veronica PA-C Unavailable [phone] Catherine Cm MD Unavailable + Johnny Murillo MD Unavailable [phone] Brea Quinn WOODWORKING MACHINE FEEDER CRANE ASSEMBLER Unavailable [phone] Brea Quinn WOODWORKING MACHINE FEEDER CRANE ASSEMBLER Unavailable [phone] Jose Francisco Johnson MD Unavailable Livan Sharif MD Unavailable + IsCatherine hobbs MD Unavailable + Sydnie Martinez RN Unavailable Unavailable Alfonso Renteria MD Unavailable Esha Grimm PA-C Primary Care Provider Cheng Todd PA-C Unavailable Rahda Lomeli WOODWORKING MACHINE FEEDER CRANE ASSEMBLER Unavailable [phone] Jelena David OD Unavailable [phone] Pao Joseph RN Unavailable Unavailable Esha Grimm-C Unavailable Valery Veronica PA-C Unavailable [phone] Rey Tay MD Unavailable Rocky Zepeda DO Unavailable Philip Dumont MD Unavailable [phone] Meredith Carrera PA-C Unavailable Neil Kent MD Unavailable Juan Pablo Emmanuel MD Unavailable [phone] Encounter Details Date Type Department Care Team (Late st Contact Info) Description 09/02/2021 MyC Medical Advice [address] [address] Diana Desir, [facility] [address] [place] [address] Social History Tobacco Use Types Packs/Day Years [...] you attend chur ch or sabianism services? More than 4 times per year [...] Answer Date Recorded PHQ-2 Score 0 04/02/2021 [facility]at ional Health - [...] a senior care (including now)? No 08/11/2020 Hawley Depression Scale Answer Date Recorded Hawley Depression Score 5 01/14/2021 Last EPDS Self [...] COVID-19? No / Unsure 09/02/2021 12:26 PM COMPUTERIZED MILL RECORDER documented as of this encounter Plan of Treatment Upcoming Encounters Date Type Department Care Team (Latest Contact Info) Description 02/14/2024 12:50 PM CDT Therapy Visit [facility] [address] [phone] Rustam Medina, PT [facility] [id number] [place] [address] 03/06/2024 3:00 PM CDT Office Visit [facility] [place] [address] [facility] [address] [place] [phone] Radha Lomeli APRN CRANE ASSEMBLER [address] [place], [place] [address] 03/07/2024 9:00 AM CDT Hospital Encounter [facility] [address] [facility] [address] 5th [place] [address] Rocky Zepeda DO 500 [place] [address] 03/07/2024 9:00 AM CDT - 03/07/2024 9:30 AM CDT Surgery [facility] [address] [facility] [address] 5th [place] [phone] Rocky Zepeda, DO [address] [place], [place] [address] Esophagoscopy, gastroscopy, duodenoscopy (EGD), combined 06/21/2024 2:00 PM COMPUTERIZED MILL RECORDER Office Visit [facility] [place] [address] [facility], [address] [place] [address] [place] [address] [place] [id number] Johnny Penn MD [address] [place] [id number] Scheduled Procedures Name Priority Associated Diagnoses Date/Ti [...] Out COVID-19 05/17/2022 05/17/2022 05/17/2022 10:20 PM COMPUTERIZED MILL RECORDER Rule Out COVID-19 06/09/2022 06/09/2022 06/09/2022 9:35 AM COMPUTERIZED MILL RECORDER COVID-19 06/09/2022 06/09/2022 06/30/2022 11:4 1 PM COMPUTERIZED MILL RECORDER Rule Out COVID-19 11/10/2022 11/10/2022 11/11/2022 12:17 PM CDT Rule Out COVID-19 03/07/2023 03/07/2023 03/07/2023 1:20 PM CDT Rule Out COVID-19 12/26/2023 12/26/2023 12/26/2023 9:50 AM CDT Assessment Noted Time PHQ-9 Depression Total Score: 2 04/02/20 10:19 AM CDT documented as of this encounter Care Teams Advertising Strategist Relationship Specialty Start Date End Date Marija Edgar APRN CRANE ASSEMBLER PCP - General Nurse Practitioner 04/30/20 04/14/23 Esha Grimm, PAUcheC [address] [place] [phone] PCP - General Family Medicine 05/04/23 Lita Oseguera Personal Advocate & Liaison (PAL) 02/28/20 03/27/23 Marija Edgar APRN CRANE ASSEMBLER Assigned PCP 06/08/20 04/29/23 Mynor Broussard MD [address] [address] Assigned Surgical Provider 06/01/20 11/28/21 Keisha Dotson MD 909 [place] [address] Assigned Neuroscience Provider 06/04/20 04/01/23 Galo Burrell MD Assigned Heart and Vascular Provider 10/05/20 04/02/22 Diana Desir, [facility] [address] [place], [place] 27[address] Pharmacist Pharmacist 04/17/21 Rain Galaviz PA-C [address] [place] [address] [address] [facility] [place] [address] Physician Finish Rolls Operator Dermatology 04/28/21 Summer Lara MD [address] [place], [place] [address] Assigned OBGYN Provider 05/31/21 2 Tavia Wyatt MD [address] [place] [address] Dermatology 07/14/21 Johnny Murillo MD [address] [place], [place] [address] Assigned Musculoskeletal Provider 08/30/21 03/17/22 Erica Farrell APRN CRANE ASSEMBLER [address] [facility] [address] [place], [place] [address] Nurse Practitioner Cardiovascular Disease 09/09/21 Teresita Bean, [facility] [address] [place] [address] Pharmacist Pharmacist 09/24/21 09/29/21 Tavia Wyatt MD Assigned Surgical Provider 11/29/21 05/07/22 Diana Desir, [facility] [address] [place] [address] Assigned MTM Pharmacist 01/02/22 Rich Barrett MD [address] [address] Physician Ophthalmology 01/21/22 Neil Kent MD 500 [place] [address] Dermatology 02/24/22 Roney Story DPM [address] [facility] [address] [place] [address] Assigned Musculoskeletal Provider 03/20/22 08/13/22 Erica Farrell APRN CRANE ASSEMBLER 1700 [place] [address] Assigned Heart and Vascular Provider 04/03/22 04/16/22 [facility] [address] [place] [address] Assigned MTM Pharmacist 04/07/22 Jelena David OD [address] [facility] [place] [address] Assigned Surgical Provider 05/08/22 10/08/22 Galo Burrell MD Assigned Heart and Vascular Provider 04/17/22 06/11/22 Livan Sharif MD [address] [place] [address] Cardiovascular Disease 05/14/22 Livan Sharif MD [address] [place] [address] Assigned Heart and Vascular Provider 06/12/22 07/23/22 Catherine Cm MD [address] [facility] [address] [place] [address] Cardiovascular Disease 07/21/22 Valery Veronica, [facility] 9 [place] [address] Physician Finish Rolls Operator Dermatology 07/21/22 Catherine Cm MD [address] [facility] [place] 128985 Assigned Heart and Vascular Provider 07/24/22 11/05/22 Johnny Murillo MD [address] [place] [address] 902524 Assigned Musculoskeletal Provider 08/14/22 10/08/22 Brea Quinn APRN CRANE ASSEMBLER [address] [place] [address] 751165 Nurse Practitioner Dermatology 09/21/22 Brea Quinn APRN CRANE ASSEMBLER [address] [place] [address] [place] 928772 Assigned Surgical Provider 10/09/22 [place] [address] [place] [address] [place] 611507 Assigned Musculoskeletal Provider 10/09/22 Livan Sharif MD [address] [place] 176845 Assigned Heart and Vascular Provider 11/06/22 11/12/22 Catherine Cm MD [address] [place] [address] Assigned Heart and Vascular Provider 11/13/22 05/27/23 Sydnie Martinez RN Personal Advocate & Liaison (PAL) Family Medicine 03/28/23 07/31/23 Alfonso Renteria MD [address] [facility] [address] [place], [place] 9816[address] Assigned Neuroscience Provider 04/02/23 Cheng Todd PA-C [address] [place] [address] [id number] Assigned PCP 04/30/23 07/15/23 Radha Lomeli APRN CRANE ASSEMBLER [address] [place] 47[address] Assigned Heart and Vascular Provider 05/28/23 Jelena David OD [address] [facility] [place] [address] Ophthalmology 06/15/23 Pao Joseph, VJ Personal Advocate & Liaison (PAL) Nurse 08/01/23 11/07/23 Esha Grimm PA-C [address] [place] [phone] Assigned PCP 07/16/23 Valery Veronica PA-C 909 [place], [place] 0[address] Physician Finish Rolls Operator Dermatology 09/19/23 Rey Tay MD 9 [place], [place] 98[address] MD Gastroenterology 09/20/23 Rocky Zepeda DO [address] [place] [address] 689115 Physician Gastroenterology 09/20/23 Philip Dumont MD [address] [place] [address] 848555 Physician Ophthalmology 09/22/23 Meredith Carrera PA-C [address] [place] [address] Assigned Gastroenterology Provider 11/01/23 Neil Kent MD [address] [address] Dermatology 11/02/23 [place] [address] [place] [address] Neurological Surgery 12/26/23 documented as of this encounter
--- OUTSIDE RECORDS SUMMARY | 2024-02-12 05:51 | XMS_ITS | Encounter Summary ---
Author Organization [facility] Address [address] [place] [address] Care Team Providers Care Energy Conservation Technician Name Role Phone Lita Oseguera Unavailable Unavailable Marija Edgar APRN COBBLER MCKAY Primary Care Provider U Marija Bella APRN COBBLER MCKAY Unavailable Unavail able Mynor Broussard MD Unavailable [phone] Kiesha Dotson MD Unavailable Galo Burrell MD Unavailable Unavailable Diana Desir [facility] Unavailable Rain Galaviz PA-C Unavailable Summer Lara MD Unavailable [phone] Tavia Wyatt MD Unavailable Unavailable Johnny Murillo MD Unavailable Erica Farrell APRN COBBLER MCKAY Unavailable Tavia Wyatt MD Unavailable Unavailable Diana Desir [facility] Unavailable [phone] Rich Barrett MD Unavailable [phone] Neil Kent MD Unavailable Roney StoryM Unavailable [phone] Erica Farrell APRN COBBLER MCKAY Unavailable Diana Desir [facility] Unavailable [phone] Jelena David OD Unavailable Galo Burrell MD Unavailable Unavailable Livan Sharif MD Unavailable Livan Sharif MD Unavailable IsCatherine hobbs MD Unavailable + Valery Veronica PA-C Unavailable [phone] Catherine Cm MD Unavailable + Johnny Murillo MD Unavailable [phone] Brea Quinn PRODUCTION CREW SUPERVISOR COBBLER MCKAY Unavailable [phone] Brea Quinn PRODUCTION CREW SUPERVISOR COBBLER MCKAY Unavailable [phone] Jose Francisco Johnson MD Unavailable Livan Sharif MD Unavailable + IsCatherine hobbs MD Unavailable + Sydnie Martinez RN Unavailable Unavailable Alfonso Renteria MD Unavailable [phone] Esha Grimm PA-C Primary Care Provider Cheng Todd PA-C Unavailable Radha Lomeli APRN COBBLER MCKAY Unavailable [phone] Jelena David OD Unavailable [phone] Pao Joseph RN Unavailable Unavailable Esha Grimm PA-C Unavailable Valery Veronica PA-C Unavailable [phone] Rey Tay MD Unavailable Rocky Zepeda DO Unavailable Philip Dumont MD Unavailable [phone] Meredith Carrera PA-C Unavailable Neil Kent MD Unavailable Juan Pablo Emmanuel MD Unavailable Encounter Details Date Type Department Care Team (Late st Contact Info) Description 10/17/2021 MyC Medical Advice [address] [address] Diana Desir, [facility] [address] [place] [address] Social History Tobacco Use Types Packs/Day Years [...] How often do you attend baptist or gnosticism serv ices? Never 09/22/2021 Do [...] Answer Date Recorded PHQ-2 Score 2 09/22/2021 [facility] [place] of Occupat ional Health - Occupational Stress [...] in a mcc (including now)? No 09/22/2021 Cardwell Depression Scale Answer Date Recorded Cardwell Depression Score 5 01/14/2021 Last EPDS Self [...] Description 02/14/2024 12:50 PM CDT Therapy Visit [address] [address] Rustam Medina, PT [facility] [id number] [place] [address] 03/06/2024 3:00 PM CDT Office Visit [facility] [place] [address] [facility] [address] [place] [phone] Radha Lomeli APRN COBBLER MCKAY [address] [place] [address] 03/07/2024 9:00 AM CDT Hospital Encounter [facility] [address] [facility] [address] 5th [place] [phone] Rocky Zepeda DO 500 [place], [place] [address] 03/07/2024 9:00 AM CDT - 03/07/2024 9:30 AM CDT Surgery [facility] [address] [facility] [address] 5th [place] [phone] Rocky Zepeda, 500 [place], [place] 8[address] Esophagoscopy, gastroscopy, duodenoscopy (EGD), combined 06/21/2024 2:00 PM SENSITOMETRIST Office Visit [facility] [place] [address] [facility], [address] [place] [address] [place] [address] [place] [address] Johnny Penn MD [address] [place] [address] Scheduled Procedures Name Priority Associated Diagnoses [...] Out COVID-19 05/17/2022 05/17/2022 05/17/2022 10:20 PM SENSITOMETRIST Rule Out COVID-19 06/09/2022 06/09/2022 06/09/2022 9:35 AM SENSITOMETRIST COVID-19 06/09/2022 06/09/2022 06/30/2022 11:4 1 PM SENSITOMETRIST Rule Out COVID-19 11/10/2022 11/10/2022 11/11/2022 12:17 PM CDT Rule Out COVID-19 03/07/2023 03/07/2023 03/07/2023 1:20 PM CDT Rule Out COVID-19 12/26/2023 12/26/2023 12/26/2023 9:50 AM CDT Assessment Noted Time PHQ-9 Depression Total Score: 2 04/02/20 10:19 AM CDT documented as of this encounter Care Teams Energy Conservation Technician Relationship Specialty Start Date End Date Marija Edgar APRN COBBLER MCKAY PCP - General Nurse Practitioner 04/30/20 04/14/23 Esha Grimm PA-C [address] [place] [address] PCP - General Family Medicine 05/04/23 Lita Oseguera Personal Advocate & Liaison (PAL) 02/28/20 03/27/23 Marija Edgar APRN COBBLER MCKAY Assigned PCP 06/08/20 04/29/23 Mynor Broussard MD [address] 484635 Assigned Surgical Provider 06/01/20 11/28/21 Keisha Dotson MD 909 [place], [place] 46[address] Assigned Neuroscience Provider 06/04/20 04/01/23 Galo Burrell MD Assigned Heart and Vascular Provider 10/05/20 04/02/22 Diana Desir, [facility] [address] [place] [address] Pharmacist Pharmacist 04/17/21 Rain Galaviz PA-C [address] [place] [address] [place] [address] Physician Accounting Officer Dermatology 04/28/21 Summer Lara MD [address] [place] [address] Assigned OBGYN Provider 05/31/21 2 Tavia Wyatt MD [address] [place] [address] Dermatology 07/14/21 Johnny Murillo MD [facility] [address] [address] Assigned Musculoskeletal Provider 08/30/21 03/17/22 Erica Farrell APRN COBBLER MCKAY [address] [facility] [address] [place] [address] Nurse Practitioner Cardiovascular Disease 09/09/21 Tavia Wyatt MD Assigned Surgical Provider 11/29/21 05/07/22 Diana Desir, [facility] 30[address] [place] [address] Assigned MTM Pharmacist 01/02/22 Rich Barrett MD [address] [place] [address] [phone] Physician Ophthalmology 01/21/22 Neil Kent MD [address] [place] [address] 701235 Dermatology 02/24/22 Roney Story DPM [address] [facility] [address] [place] [address] Assigned Musculoskeletal Provider 03/20/22 08/13/22 Erica Farrell APRN COBBLER MCKAY 1700 [place] [address] Assigned Heart and Vascular Provider 04/03/22 04/16/22 Diana Desir, [facility] [address] [place], [place] 5[address]26 Assigned MTM Pharmacist 04/07/22 Jelena David OD [address] [place] [address] Assigned Surgical Provider 05/08/22 10/08/22 Galo Burrell MD Assigned Heart and Vascular Provider 04/17/22 06/11/22 Livan Sharif MD [address] [facility]00 [place] [address] Cardiovascular Disease 05/14/22 Livan Sharif MD [address] [facility]00 [place] [address] Assigned Heart and Vascular Provider 06/12/22 07/23/22 Catherine Cm MD [address] [facility]00 [place] 197[address] Cardiovascular Disease 07/21/22 Valery Veronica, PAUcheC [address] [place] [address] Physician Accounting Officer Dermatology 07/21/22 Catherine Cm MD [address] [facility] S [facility]00 [place] [address] Assigned Heart and Vascular Provider 07/24/22 11/05/22 Johnny Murillo MD [address] [place] [address] Assigned Musculoskeletal Provider 08/14/22 10/08/22 Brea Quinn APRN COBBLER MCKAY [address] [place] [address] 365235 Nurse Practitioner Dermatology 09/21/22 Brea Quinn APRN COBBLER MCKAY [address] [place] [address] 206642 Assigned Surgical Provider 10/09/22 [place] [address] [address] [address] Assigned Musculoskeletal Provider 10/09/22 Livan Sharif MD [address], [facility]00 [place] [address] Assigned Heart and Vascular Provider 11/06/22 11/12/22 Catherine Cm MD 6[address] [facility] S [facility]00 [place] [address] Assigned Heart and Vascular Provider 11/13/22 05/27/23 Sydnie Martinez RN Personal Advocate & Liaison (PAL) Family Medicine 03/28/23 07/31/23 Alfonso Renteria MD [address] [facility] [address] [place] [address] Assigned Neuroscience Provider 04/02/23 Cheng Todd PA-C [address] [place] [address] Assigned PCP 04/30/23 07/15/23 Radha Lomeli APRN COBBLER MCKAY [address] [facility] [address] [place] [address] Assigned Heart and Vascular Provider 05/28/23 Jelena David OD [facility] [place] [address] Ophthalmology 06/15/23 Pao Joseph, VJ Personal Advocate & Liaison (PAL) Nurse 08/01/23 11/07/23 Esha Grimm PA-C [address] [place] [address] Assigned PCP 07/16/23 Valery Veronica PA-C [address] [place] [address] Physician Accounting Officer Dermatology 09/19/23 Rey Tay MD [address] [place] [address] 548775 Gastroenterology 09/20/23 Rocky Zepeda DO [address] [place] [address] Physician Gastroenterology 09/20/23 Philip Dumont MD 6 [place] [address] Physician Ophthalmology 09/22/23 Meredith Carrera PA-C [address] [place] [address] Assigned Gastroenterology Provider 11/01/23 Neil Kent MD [address] [address] Dermatology 11/02/23 [place] [address] [place] [address] 397227 Neurological Surgery 12/26/23 documented as of this encounter
--- OUTSIDE RECORDS SUMMARY | 2024-02-12 05:51 | XMS_ITS | Encounter Summary ---
Author Organization [place] Address [address] [place] [address] Care Team Providers Care Senior Water/Wastewater Engineer Name Role Phone Lita Oseguera Unavailable Unavailable Marija Edgar APRN FORMING ROLL OPERATOR HEAVY DUTY Primary Care Provider U Marija Bella APRN FORMING ROLL OPERATOR HEAVY DUTY Unavailable Unavail able Mynor Broussard MD Unavailable [phone] Keisha Dotson MD Unavailable [phone] Galo Burrell MD Unavailable Unavailable Diana Desir [facility] Unavailable Rain Galaviz PA-C Unavailable Summer Lara MD Unavailable [phone] Tavia Wyatt MD Unavailable Unavailable Johnny Murillo MD Unavailable Erica Farrell APRN FORMING ROLL OPERATOR HEAVY DUTY Unavailable Tavia Wyatt MD Unavailable Unavailable Diana Desir [facility] Unavailable [phone] Rich aBrrett MD Unavailable [phone] Neil Kent MD Unavailable Roney StoryM Unavailable [phone] Erica Farrell APRN FORMING ROLL OPERATOR HEAVY DUTY Unavailable Diana Desir [facility] Unavailable [phone] Jelena David OD Unavailable Galo Burrell MD Unavailable Unavailable Livan Sharif MD Unavailable Livan Sharif MD Unavailable IsCatherine hobbs MD Unavailable + Valery Veronica PA-C Unavailable [phone] Catherine Cm MD Unavailable + Johnny Murillo MD Unavailable [phone] Brea Quinn TV HOST FORMING ROLL OPERATOR HEAVY DUTY Unavailable [phone] Brea Quinn TV HOST FORMING ROLL OPERATOR HEAVY DUTY Unavailable [phone] Jose Francisco Johnson MD Unavailable Livan Sharif MD Unavailable + IsCatherine hobbs MD Unavailable + Sydnie Martinez RN Unavailable Unavailable Alfonso Renteria MD Unavailable [phone] Esha Grimm PA-C Primary Care Provider Cheng Todd PA-C Unavailable Radha oLmeli APRN FORMING ROLL OPERATOR HEAVY DUTY Unavailable [phone] Jelena David OD Unavailable Pao Joseph RN Unavailable Unavailable Esha Grimm PA-C Unavailable [phone] Valery Veronica PA-C Unavailable [phone] Rey Tay MD Unavailable Rocky Zepeda DO Unavailable Philip Dumont MD Unavailable [phone] Meredith Carrera PA-C Unavailable [phone] Neil Kent MD Unavailable Juan Pablo Emmanuel MD Unavailable [phone] Encounter Details Date Type Department Care Team (Late st Contact Info) Description 10/28/2021 MyC Medical Advice [facility] [address] [facility] [address] [place] [address] Erica Farrell APRN FORMING ROLL OPERATOR HEAVY DUTY [address] [place] [address] Social History Tobacco Use Types Packs/Day Years [...] How often do you attend worship or cheondoism serv ices? Never 09/22/2021 Do you belong [...] Answer Date Recorded PHQ-2 Score 2 09/22/2021 [facility] - Occupational [...] a group home (including now)? No 09/22/2021 [place] Depression Scale Answer Date Recorded [place] Depression Score 5 01/14/2021 Last EPDS Self [...] Description 02/14/2024 12:50 PM CDT Therapy Visit [facility] [place] [address] [place] [phone] Rustam Medina, PT [facility] [id number] [place] [address] 03/06/2024 3:00 PM CDT Office Visit [facility] [place] [address] [facility] [address] [place] [phone] Radha Lomeli APRN FORMING ROLL OPERATOR HEAVY DUTY [address] [place] [address] 03/07/2024 9:00 AM CDT Hospital Encounter [facility] [address] [facility] [address] 5th [place] [phone] Rocky Zepeda DO 500 [place], [place] 1[address] 03/07/2024 9:00 AM CDT - 03/07/2024 9:30 AM CDT Surgery [facility] [address] [facility] [address] 5th [place] [phone] Rocky Zepeda, DO [address] [facility] [place] [address] Esophagoscopy, gastroscopy, duodenoscopy (EGD), combined 06/21/2024 2:00 PM PIGGYBACK CLERK Office Visit [facility] [place] [address] [facility], [address] [place] [phone] [place] [address] [place] [address] Johnny Penn MD [address] [place] [address] Scheduled Procedures Name Priority Associated Diagnoses [...] Out COVID-19 05/17/2022 05/17/2022 05/17/2022 10:20 PM PIGGYBACK CLERK Rule Out COVID-19 06/09/2022 06/09/2022 06/09/2022 9:35 AM PIGGYBACK CLERK COVID-19 06/09/2022 06/09/2022 06/30/2022 11:4 1 PM PIGGYBACK CLERK Rule Out COVID-19 11/10/2022 11/10/2022 11/11/2022 12:17 PM CDT Rule Out COVID-19 03/07/2023 03/07/2023 03/07/2023 1:20 PM CDT Rule Out COVID-19 12/26/2023 12/26/2023 12/26/2023 9:50 AM CDT Assessment Noted Time PHQ-9 Depression Total Score: 2 04/02/20 10:19 AM CDT documented as of this encounter Care Teams Senior Water/Wastewater Engineer Relationship Specialty Start Date End Date Marija Edgar APRN FORMING ROLL OPERATOR HEAVY DUTY PCP - General Nurse Practitioner 04/30/20 04/14/23 Esha Grimm PA-C [address] [place] [phone] PCP - General Family Medicine 05/04/23 Lita Oseguera Personal Advocate & Liaison (PAL) 02/28/20 03/27/23 Marija Edgar APRN FORMING ROLL OPERATOR HEAVY DUTY Assigned PCP 06/08/20 04/29/23 Mynor Broussard MD [address] 625615 Assigned Surgical Provider 06/01/20 11/28/21 Keisha Dotson MD 909 [place], [place] 407575 Assigned Neuroscience Provider 06/04/20 04/01/23 Galo Burrell MD Assigned Heart and Vascular Provider 10/05/20 04/02/22 Diana Desir [facility] 30[address] [place], [place] [phone] Pharmacist Pharmacist 04/17/21 Rain Galaviz PA-C [address] [facility] [place] [address] Physician Supervisor Epoxy Fabrication Dermatology 04/28/21 Summer Lara MD [address] [place] [address] Assigned OBGYN Provider 05/31/21 2 Tavia Wyatt MD [address] [place] [address] Dermatology 07/14/21 Johnny Murillo MD [address] [place] [address] Assigned Musculoskeletal Provider 08/30/21 03/17/22 Erica Farrell APRN FORMING ROLL OPERATOR HEAVY DUTY [address] [facility] [address] [place] [address] Nurse Practitioner Cardiovascular Disease 09/09/21 Tavia Wyatt MD Assigned Surgical Provider 11/29/21 05/07/22 Diana Desir, [facility] [address] [place] [address] Assigned MTM Pharmacist 01/02/22 Rich Barrett MD [address] 769175 Physician Ophthalmology 01/21/22 Neil Kent MD [address] [place] [address] 446915 Dermatology 02/24/22 Roney Story DPM [address] [facility] [address] [place] [address] Assigned Musculoskeletal Provider 03/20/22 08/13/22 Erica Farrell APRN FORMING ROLL OPERATOR HEAVY DUTY [address] [place] [address] Assigned Heart and Vascular Provider 04/03/22 04/16/22 Diana Desir, [facility] [address] [place] [place], [place] 914176 Assigned MTM Pharmacist 04/07/22 Jelena David OD [address] [facility] [place] [address] Assigned Surgical Provider 05/08/22 10/08/22 Galo Burrell MD Assigned Heart and Vascular Provider 04/17/22 06/11/22 Livan Sharif MD [address], [facility] [address] [place] [address] Cardiovascular Disease 05/14/22 Livan Sharif MD [address], [facility] [address] [place] [address] Assigned Heart and Vascular Provider 06/12/22 07/23/22 Catherine Cm MD [address] [place] [address] Cardiovascular Disease 07/21/22 Valery Veronica, PA-C 909 [place] [address] Physician Supervisor Epoxy Fabrication Dermatology 07/21/22 Catherine Cm MD [address] [place] [address] Assigned Heart and Vascular Provider 07/24/22 11/05/22 Johnny Murillo MD [facility] [address] [address] Assigned Musculoskeletal Provider 08/14/22 10/08/22 Brea Quinn APRN FORMING ROLL OPERATOR HEAVY DUTY [address] [place] [address] 773965 Nurse Practitioner Dermatology 09/21/22 Brea Quinn APRN FORMING ROLL OPERATOR HEAVY DUTY [address] [place] [address] [place], [place] 330652 Assigned Surgical Provider 10/09/22 [place] [address] [address] Assigned Musculoskeletal Provider 10/09/22 Livan Sharif MD [address] [place] [address] Assigned Heart and Vascular Provider 11/06/22 11/12/22 Catherine Cm MD [address] [place] [address] Assigned Heart and Vascular Provider 11/13/22 05/27/23 Sydnie Martinez RN Personal Advocate & Liaison (PAL) Family Medicine 03/28/23 07/31/23 Alfonso Renteria MD [address] [facility] [address] [place] [address] Assigned Neuroscience Provider 04/02/23 Cheng Todd PA-C [address] [place] [address] Assigned PCP 04/30/23 07/15/23 Radha Lomeli APRN FORMING ROLL OPERATOR HEAVY DUTY 6[address] [facility] [address] [place] [address] Assigned Heart and Vascular Provider 05/28/23 Jelena David OD 3[address] [facility] [place] [address] Ophthalmology 06/15/23 Pao Joseph, VJ Personal Advocate & Liaison (PAL) Nurse 08/01/23 11/07/23 Esha Grimm PA-C [address] [place] [address] Assigned PCP 07/16/23 Valery Veronica PA-C [address] [place] [address] Physician Supervisor Epoxy Fabrication Dermatology 09/19/23 eRy Tay MD [address] [place] [address] Gastroenterology 09/20/23 Rocky Zepeda DO [address] [place] [address] [place] [address] Physician Gastroenterology 09/20/23 Philip Dumont MD [address] [place] [address] Physician Ophthalmology 09/22/23 Meredith Carrera PA-C [address] [place] [address] Assigned Gastroenterology Provider 11/01/23 Neil Kent MD [address] [place] [address] Dermatology 11/02/23 [place] [address] [place] [address] Neurological Surgery 12/26/23 documented as of this encounter
--- OUTSIDE RECORDS SUMMARY | 2024-02-12 05:51 | XMS_ITS | Encounter Summary ---
Author Organization [place] Address [address] [place] [address] Care Team Providers Care Senior Research Analyst Name Role Phone Lita Oseguera Unavailable Unavailable Marija Edgar APRN MANAGER ROOM Primary Care Provider U Marija Bella APRN MANAGER ROOM Unavailable Unavail able Mynor Broussard MD Unavailable [phone] Keisha Dotson MD Unavailable Galo Burrell MD Unavailable Unavailable Diana Desir [facility] Unavailable [phone] Rain Galaviz PA-C Unavailable Summer Lara MD Unavailable [phone] Tavia Wyatt MD Unavailable Unavailable Johnny Murillo MD Unavailable Erica Farrell APRN MANAGER ROOM Unavailable Teresita Bean [facility] Unavailable [phone] Tavia Wyatt MD Unavailable Unavailable Diana Desir [facility] Unavailable [phone] Rich Barrett MD Unavailable Neil Kent MD Unavailable Roney Story DPM Unavailable [phone] Erica Farrell APRN MANAGER ROOM Unavailable + Diana Desir [facility] Unavailable Jelena David OD Unavailable Galo Burrell MD Unavailable Unavailable Livan Sharif MD Unavailable Livan Sharif MD Unavailable IsCatherine hobbs MD Unavailable + Valery Veronica PA-C Unavailable [phone] Catherine Cm MD Unavailable + Johnny Murillo MD Unavailable [phone] Brea Quinn COMPOSITE BOND WORKER MANAGER ROOM Unavailable [phone] Brea Quinn COMPOSITE BOND WORKER MANAGER ROOM Unavailable [phone] Jose Francisco Johnson MD Unavailable Livan Sharif MD Unavailable + IsCatherine hobbs MD Unavailable + Sydnie Martinez RN Unavailable Unavailable Alfonso Renteria MD Unavailable Esha Grimm PA-C Primary Care Provider Cheng Todd PA-C Unavailable Radha Lomeli COMPOSITE BOND WORKER MANAGER ROOM Unavailable [phone] Jelena David OD Unavailable [phone] Pao Joseph RN Unavailable Unavailable Esha Grimm-C Unavailable [phone] Valery Veronica PA-C Unavailable [phone] Rey Tay MD Unavailable Rocky Zepeda DO Unavailable Philip Dumont MD Unavailable [phone] Meredith Carrera PA-C Unavailable Neil Kent MD Unavailable Juan Pablo Emmanuel MD Unavailable [phone] Encounter Details Date Type Department Care Team (Late st Contact Info) Description 08/04/[address] [address] [facility] Social History Tobacco [...] often do you attend chur ch or worship services? More than 4 times [...] Date Recorded PHQ-2 Score 0 04/02/2021 [facility] of Occupat ional Health - Occupational Stress [...] in a assisted (including now)? No 08/11/2020 [place] Depression Scale Answer Date Recorded [place] Depression Score 5 01/14/2021 Last EPDS Self [...] COVID-19? No / Unsure 08/03/2021 2:24 PM MATERIAL PLANNER documented as of this encounter Plan of Treatment Upcoming Encounters Date Type Department Care Team (Latest Contact Info) Description 02/14/2024 12:50 PM CDT Therapy Visit [facility] [address] [address] Rustam Medina, PT [facility] [id number] [place] [address] 03/06/2024 3:00 PM CDT Office Visit [facility] [place] [address] [place] [address] [address] [place] [phone] Radha Lomeli, COMPOSITE BOND WORKER MANAGER ROOM [address] [place] [address] 03/07/2024 9:00 AM CDT Hospital Encounter [facility] [address] [facility] [address] 5th [place] [phone] Rocky Zepeda DO 500 [place], [place] 57[address] 03/07/2024 9:00 AM CDT - 03/07/2024 9:30 AM CDT Surgery [facility] [address] [facility] [address] 5th [place] [address] Rocky Zepeda, DO [address] [place], [place] 7[address] Esophagoscopy, gastroscopy, duodenoscopy (EGD), combined 06/21/2024 2:00 PM MATERIAL PLANNER Office Visit [facility] [place] [address] [facility], [address] [place] [address] [place] [address] [place] [address] Johnny Penn MD [address] [place] [address] Scheduled Procedures Name Priority Associated Diagnoses Date/Ti ct ESOPHAGOGASTRODUODENOSCOPY Eosinophilic esophagitis Esophageal dysphagia 03/07/2024 9:00 AM CDT documented as of this encounter Visit Diagnoses Not on filedocumented in this encounter Additional Health Concerns Infection Onset Date Last Indicated Resolved Time COVID-19 07/18/2021 07/18/2021 08/08/2021 11:3 9 PM MATERIAL PLANNER Rule Out COVID-19 12/18/2021 12/18/2021 12/19/2021 11:34 AM CDT Rule Out COVID-19 02/24/2022 02/24/2022 02/25/2022 1:08 PM CDT Rule Out COVID-19 04/26/2022 04/26/2022 04/26/2022 6:47 AM CDT Rule Out COVID-19 05/17/2022 05/17/2022 05/17/2022 10:20 PM MATERIAL PLANNER Rule Out COVID-19 06/09/2022 06/09/2022 06/09/2022 9:35 AM MATERIAL PLANNER COVID-19 06/09/2022 06/09/2022 06/30/2022 11:4 1 PM MATERIAL PLANNER Rule Out COVID-19 11/10/2022 11/10/2022 11/11/2022 12:17 PM CDT Rule Out COVID-19 03/07/2023 03/07/2023 03/07/2023 1:20 PM CDT Rule Out COVID-19 12/26/2023 12/26/2023 12/26/2023 9:50 AM CDT Assessment Noted Time PHQ-9 Depression Total Score: 2 04/02/20 10:19 AM CDT documented as of this encounter Care Teams Senior Research Analyst Relationship Specialty Start Date End Date Marija Edgar APRN MANAGER ROOM PCP - General Nurse Practitioner 04/30/20 04/14/23 Esha Grimm PA-C [address] [place] [phone] PCP - General Family Medicine 05/04/23 Lita Oseguera Personal Advocate & Liaison (PAL) 02/28/20 03/27/23 Marija Edgar APRN MANAGER ROOM Assigned PCP 06/08/20 04/29/23 Mynor Broussard MD [address] [address] Assigned Surgical Provider 06/01/20 11/28/21 Keisha Dotson MD 909 [place], [place] 492055 Assigned Neuroscience Provider 06/04/20 04/01/23 Galo Burrell MD Assigned Heart and Vascular Provider 10/05/20 04/02/22 Diana Desir, [facility] [address]33 [place], [place] [phone] Pharmacist Pharmacist 04/17/21 Rain Galaviz PA-C [address] [place] [address] [place] [address] Physician Textile Artist Dermatology 04/28/21 Summer Lara MD [address] [place], [place] 1740[address] Assigned OBGYN Provider 05/31/21 2 Tavia Wyatt MD [address] [place] [address] Dermatology 07/14/21 Johnny Murillo MD [address] [place] [address] Assigned Musculoskeletal Provider 08/30/21 03/17/22 Erica Farrell APRN MANAGER ROOM [address] [facility] [address] [place], [place] 4677[address] Nurse Practitioner Cardiovascular Disease 09/09/21 Teresita Bean, [facility] [address] [place] [address] Pharmacist Pharmacist 09/24/21 09/29/21 Tavia Wyatt MD Assigned Surgical Provider 11/29/21 05/07/22 Diana Desir, [facility] [address] [place] [address] Assigned MTM Pharmacist 01/02/22 Rich Barrett MD 516 [facility] [address] [place] [address] Physician Ophthalmology 01/21/22 Neil Kent MD 500 [place] [address] Dermatology 02/24/22 Roney Story DPM [address] [facility] [address] [place], [place] 125[address] Assigned Musculoskeletal Provider 03/20/22 08/13/22 Erica Farrell APRN MANAGER ROOM 1700 [place] [address] Assigned Heart and Vascular Provider 04/03/22 04/16/22 [facility] 3033 [place] [address] Assigned MTM Pharmacist 04/07/22 Jelena David OD [address] [place] [address] Assigned Surgical Provider 05/08/22 10/08/22 Galo Burrell MD Assigned Heart and Vascular Provider 04/17/22 06/11/22 Livan Sharif MD [address] [place] 8045[address] Cardiovascular Disease 05/14/22 Livan Sharif MD [address] [place] [address] Assigned Heart and Vascular Provider 06/12/22 07/23/22 Catherine Cm MD [address] [place] [address] Cardiovascular Disease 07/21/22 Valery Veronica PA-C [address] [place] [address] 682415 Physician Textile Artist Dermatology 07/21/22 Catherine Cm MD [address] [facility] [address] [place] 831495 Assigned Heart and Vascular Provider 07/24/22 11/05/22 Johnny Murillo MD [facility] [address] 336[address] Assigned Musculoskeletal Provider 08/14/22 10/08/22 Brea Quinn APRN MANAGER ROOM [address] [place] [address] 936075 Nurse Practitioner Dermatology 09/21/22 Brea Quinn APRN MANAGER ROOM [address] [place] [address] [place] 969522 Assigned Surgical Provider 10/09/22 [place] [address] [facility] [place] MD 256087 Assigned Musculoskeletal Provider 10/09/22 Livan Sharif MD [address] [place] 769[address] Assigned Heart and Vascular Provider 11/06/22 11/12/22 Catherine Cm MD [address] [place], [place] 6945[address] Assigned Heart and Vascular Provider 11/13/22 05/27/23 Sydnie Martinez RN Personal Advocate & Liaison (PAL) Family Medicine 03/28/23 07/31/23 Alfonso Renteria MD [address] [place] [address] Assigned Neuroscience Provider 04/02/23 Cheng Todd PA-C [address] [place] [address] [id number] Assigned PCP 04/30/23 07/15/23 Radha Lomeli APRN MANAGER ROOM [address] [place], [place] 288[address]95 Assigned Heart and Vascular Provider 05/28/23 Jelena David OD [address] [place] [address] Ophthalmology 06/15/23 Pao Joseph RN Personal Advocate & Liaison (PAL) Nurse 08/01/23 11/07/23 Esha Grimm PA-C [address] [place] [address] Assigned PCP 07/16/23 Valery Veronica PA-C 909 [place], [place] 337115 Physician Textile Artist Dermatology 09/19/23 Rey Tay MD 909 [place] [address] MD Gastroenterology 09/20/23 Rocky Zepeda DO [address] [place] [address] Physician Gastroenterology 09/20/23 Philip Dumont MD [address] [place] [address] Physician Ophthalmology 09/22/23 Meredith Carrera PA-C [address] [place] [address] Assigned Gastroenterology Provider 11/01/23 Neil Kent MD [address] [address] Dermatology 11/02/23 [place] [address] [place] [address] Neurological Surgery 12/26/23 documented as of this encounter
--- OUTSIDE RECORDS SUMMARY | 2024-02-12 05:51 | XMS_ITS | Encounter Summary ---
Author Organization [facility] Address [address] [place] [address] Care Team Providers Care Copying Machine Mechanic Name Role Phone Lita Oseguera Unavailable Unavailable Marija Edgar APRN FLOUR MIXER HELPER Primary Care Provider U Marija Bella APRN FLOUR MIXER HELPER Unavailable Unavail able Mynor Broussard MD Unavailable [phone] Keisha Dotson MD Unavailable [phone] Galo Burrell MD Unavailable Unavailable Diana Desir [facility] Unavailable Rain Galaviz PA-C Unavailable Summer Lara MD Unavailable [phone] Tavia Wyatt MD Unavailable Unavailable Johnny Murillo MD Unavailable [phone] Erica Farrell APRN FLOUR MIXER HELPER Unavailable Teresita Bean [facility] Unavailable Tavia Wyatt MD Unavailable Unavailable Diana Desir [facility] Unavailable [phone] Rich Barrett MD Unavailable Neil Kent MD Unavailable Roney Story DPM Unavailable [phone] Erica Farrell APRN FLOUR MIXER HELPER Unavailable + Diana Desir [facility] Unavailable eJlena David OD Unavailable Galo Burrell MD Unavailable Unavailable Livan Sharif MD Unavailable Livan Sharif MD Unavailable IsCatherine hobbs MD Unavailable + Valery Veronica PA-C Unavailable [phone] Catherine Cm MD Unavailable + Johnny Murillo MD Unavailable [phone] Brea Quinn QUALITY COMPLIANCE COORDINATOR FLOUR MIXER HELPER Unavailable [phone] Brea Quinn QUALITY COMPLIANCE COORDINATOR FLOUR MIXER HELPER Unavailable [phone] Jose Francisco Johnson MD Unavailable Livan Sharif MD Unavailable + IsCatherine hobbs MD Unavailable + Sydnie Martinez RN Unavailable Unavailable Alfonso Renteria MD Unavailable Esha Grimm PA-C Primary Care Provider Cheng Todd PA-C Unavailable Radha Lomeli QUALITY COMPLIANCE COORDINATOR FLOUR MIXER HELPER Unavailable [phone] Jelena David OD Unavailable [phone] Pao Joseph RN Unavailable Unavailable Esha Grimm-C Unavailable [phone] Valery Veronica PA-C Unavailable [phone] Rey Tay MD Unavailable Rocky Zepeda DO Unavailable Philip Dumont MD Unavailable [phone] Meredith Carrera PA-C Unavailable Neil Kent MD Unavailable Juan Pablo Emmanuel MD Unavailable [phone] Encounter Details Date Type Department Care Team [...] Answer Date Recorded PHQ-2 Score 0 04/02/2021 [facility] of Occupat ional [...] a group home (including now)? No 08/11/2020 [place] Depression Scale Answer Date Recorded [place] Depression Score 5 01/14/2021 Last EPDS Self [...] COVID-19? No / Unsure 09/02/2021 12:26 PM ACID SUPERVISOR documented as of this encounter Plan of Treatment Upcoming Encounters Date Type Department Care Team (Latest Contact Info) Description 02/14/2024 12:50 PM CDT Therapy Visit [facility] [address] [place] [phone] Rustam Medina, PT [facility] [address] [place] [address] 03/06/2024 3:00 PM CDT Office Visit [facility] [place] [address] [place] [address] [address] [place] [phone] Radha Lomeli APRN FLOUR MIXER HELPER [address] [place] [address] 03/07/2024 9:00 AM CDT Hospital Encounter [address] 5th [place] [address] Rocky Zepeda DO 500 [place], [place] 854625 03/07/2024 9:00 AM CDT - 03/07/2024 9:30 AM CDT Surgery [address] 5th [place] [address] Rocky Zepeda, DO 500 [place] [address] Esophagoscopy, gastroscopy, duodenoscopy (EGD), combined 06/21/2024 2:00 PM ACID SUPERVISOR Office Visit [facility] [address] [facility], [address] [place] [address] [place] [address] [place] [address] Johnny Penn MD [address] [phone] Scheduled Procedures Name Priority Associated Diagnoses Date/Ti [...] COVID-19 05/17/2022 05/17/2022 05/17/2022 10:20 PM ACID SUPERVISOR Rule Out COVID-19 06/09/2022 06/09/2022 06/09/2022 9:35 AM ACID SUPERVISOR COVID-19 06/09/2022 06/09/2022 06/30/2022 11:4 1 PM ACID SUPERVISOR Rule Out COVID-19 11/10/2022 11/10/2022 11/11/2022 12:17 PM CDT Rule Out COVID-19 03/07/2023 03/07/2023 03/07/2023 1:20 PM CDT Rule Out COVID-19 12/26/2023 12/26/2023 12/26/2023 9:50 AM CDT Assessment Noted Time PHQ-9 Depression Total Score: 2 04/02/20 10:19 AM CDT documented as of this encounter Care Teams Copying Machine Mechanic Relationship Specialty Start Date End Date Marija Edgar APRN FLOUR MIXER HELPER PCP - General Nurse Practitioner 04/30/20 04/14/23 Ehsa Grimm PA-C [address] [place] [address] PCP - General Family Medicine 05/04/23 Lita Oseguera Personal Advocate & Liaison (PAL) 02/28/20 03/27/23 Marija Edgar APRN FLOUR MIXER HELPER Assigned PCP 06/08/20 04/29/23 Mynor Broussard MD [address] [place] [address] Assigned Surgical Provider 06/01/20 11/28/21 Keisha Dotson MD 909 [place] [address] Assigned Neuroscience Provider 06/04/20 04/01/23 Galo Burrell MD Assigned Heart and Vascular Provider 10/05/20 04/02/22 Diana Desir, [facility] [address] [facility] [place], [place] [address] Pharmacist Pharmacist 04/17/21 Rain Galaviz PA-C [address] [place] [address] [address] [place] [address] Physician Oyster Culler Dermatology 04/28/21 Summer Lara MD [address] [place] [address] Assigned OBGYN Provider 05/31/21 Tavia Wyatt MD [address] [place] [address] Dermatology 07/14/21 Johnny Murillo MD [address] [place] [address] Assigned Musculoskeletal Provider 08/30/21 03/17/22 Erica Farrell APRN FLOUR MIXER HELPER [address] [facility] [address] [place] [address] Nurse Practitioner Cardiovascular Disease 09/09/21 Teresita Bean, [facility] [address] [place], [place] [phone] Pharmacist Pharmacist 09/24/21 09/29/21 Tavia Wyatt MD Assigned Surgical Provider 11/29/21 05/07/22 [facility] [address] [facility] [place] [address] Assigned MTM Pharmacist 01/02/22 Rich Barrett MD [address] 967975 Physician Ophthalmology 01/21/22 Neil Kent MD [address] [place] [address] 064795 Dermatology 02/24/22 Roney Story DPM [address] [facility] [address] [place], [place] 709437 Assigned Musculoskeletal Provider 03/20/22 08/13/22 Erica Farrell APRN FLOUR MIXER HELPER 1700 [place] [address] Assigned Heart and Vascular Provider 04/03/22 04/16/22 Diana Desir, [facility] 3033 [place] [address] Assigned MTM Pharmacist 04/07/22 Jelena David OD [address] [facility] [place] [place] [address] Assigned Surgical Provider 05/08/22 10/08/22 Galo Burrell MD Assigned Heart and Vascular Provider 04/17/22 06/11/22 Livan Sharif MD [address] [place] 151805 Cardiovascular Disease 05/14/22 Livan Sharif MD [address] [place] 0[address]75 Assigned Heart and Vascular Provider 06/12/22 07/23/22 Catherine Cm MD [address] [place] 494105 Cardiovascular Disease 07/21/22 Valery Veronica PA-C 909 [place], [place] 919255 Physician Oyster Culler Dermatology 07/21/22 Catherine Cm MD [address] [facility] [address] [place] 934225 Assigned Heart and Vascular Provider 07/24/22 11/05/22 Johnny Murillo MD [facility] [address] 968494 Assigned Musculoskeletal Provider 08/14/22 10/08/22 Brea Quinn APRN FLOUR MIXER HELPER [address] [place] [address] 307535 Nurse Practitioner Dermatology 09/21/22 Brea Quinn APRN FLOUR MIXER HELPER [address] [place] [address] 783102 Assigned Surgical Provider 10/09/22 [place] [address] 027127 Assigned Musculoskeletal Provider 10/09/22 Livan Sharif MD [address] [place] 888875 Assigned Heart and Vascular Provider 11/06/22 11/12/22 Catherine Cm MD [address] [facility] [address] [place] 510525 Assigned Heart and Vascular Provider 11/13/22 05/27/23 Sydnie Martinez, RN Personal Advocate & Liaison (PAL) Family Medicine 03/28/23 07/31/23 Alfonso Renteria MD [address] [facility] [address] [place] [address] Assigned Neuroscience Provider 04/02/23 Cheng Todd PA-C [address] [place] [address] [phone] Assigned PCP 04/30/23 07/15/23 Radha Lomeli APRN FLOUR MIXER HELPER 6[address] [facility] [address] [place], [place] 424285 Assigned Heart and Vascular Provider 05/28/23 Jelena David OD [address] [facility] [place] [address] Ophthalmology 06/15/23 Pao Joseph, VJ Personal Advocate & Liaison (PAL) Nurse 08/01/23 11/07/23 Esha Grimm PA-C [address] [place] [address] Assigned PCP 07/16/23 Valery Veronica PA-C [address] [place] [address] 114305 Physician Oyster Culler Dermatology 09/19/23 Rey Tay MD 909 [place], [place] 935155 Gastroenterology 09/20/23 Rocky Zepeda DO 500 [place] [address] Physician Gastroenterology 09/20/23 Philip Dumont MD [address] [place] [address] Physician Ophthalmology 09/22/23 Meredith Carrera PA-C [address] [place] [address] 719255 Assigned Gastroenterology Provider 11/01/23 Neil Kent MD [address] [address] Dermatology 11/02/23 [place] [address] [facility] [place] [address] Neurological Surgery 12/26/23 documented as of this encounter
--- OUTSIDE RECORDS SUMMARY | 2024-02-12 05:51 | XMS_ITS | Encounter Summary ---
Author Organization [place] Address [address] [place] [address] Care Team Providers Care Floor Care Specialist Name Role Phone Lita Oseguera Unavailable Unavailable Marija Edgar APRN KNUCKLE BENDER Primary Care Provider U Marija Bella APRN KNUCKLE BENDER Unavailable Unavail able Mynor Broussard MD Unavailable [phone] Keisha Dotson MD Unavailable Galo Burrell MD Unavailable Unavailable Diana Desir [facility] Unavailable Rain Galaviz PA-C Unavailable Summer Lara MD Unavailable [phone] Tavia Wyatt MD Unavailable Unavailable Johnny Murillo MD Unavailable Erica Farrell APRN KNUCKLE BENDER Unavailable Tavia Wyatt MD Unavailable Unavailable Diana Desir [facility] Unavailable [phone] Rich Barrett MD Unavailable [phone] Neil Kent MD Unavailable Roney StoryM Unavailable [phone] Erica Farrell APRN KNUCKLE BENDER Unavailable Diana Desir [facility] Unavailable [phone] Jelena David OD Unavailable [phone] Galo Burrell MD Unavailable Unavailable Livan Sharif MD Unavailable Livan Sharif MD Unavailable IsCatherine hobbs MD Unavailable + Valery Veronica PA-C Unavailable + [phone] Catherine Cm MD Unavailable + Johnny Murillo MD Unavailable [phone] Brea Quinn CLOTH BOOKER KNUCKLE BENDER Unavailable [phone] Brea Quinn CLOTH BOOKER KNUCKLE BENDER Unavailable [phone] Jose Francisco Johnson MD Unavailable Livna Sharif MD Unavailable + IsCatherine hobbs MD Unavailable + Sydnie Martinez RN Unavailable Unavailable Alfonso Renteria MD Unavailable [phone] Esha Grimm PA-C Primary Care Provider Cheng Todd PA-C Unavailable Radha Lomeli APRN KNUCKLE BENDER Unavailable [phone] Jelena David OD Unavailable Pao Joseph RN Unavailable Unavailable Esha Grimm PA-C Unavailable Valery Veronica PA-C Unavailable [phone] Rey Tay MD Unavailable Rocky Zepeda DO Unavailable Philip Dumont MD Unavailable [phone] Meredith Carrera PA-C Unavailable [phone] Neil Kent MD Unavailable Juan Pablo Emmanuel MD Unavailable [phone] Encounter Details Date Type Department Care Team (Late st Contact Info) Description 11/04/2021 MyC Medical Advice [address] [address] Diana Desir, [facility] 3033 [place] [address] Social History Tobacco Use Types Packs/Day Years [...] How often do you attend yazidism or jain serv ices? Never 09/22/2021 Do [...] Answer Date Recorded PHQ-2 Score 2 09/22/2021 [facility] [place] of Occupat ional Health - Occupational Stress [...] in a mcfp (including now)? No 09/22/2021 [place] Depression Scale Answer Date Recorded [place] Depression Score 5 01/14/2021 Last EPDS Self [...] Description 02/14/2024 12:50 PM CDT Therapy Visit [address] [address] Rustam Medina, PT [facility] [address] [place] [address] 03/06/2024 3:00 PM CDT Office Visit [facility] [place] [address] [facility] [address] [place] [phone] Radha Lomeli, CLOTH BOOKER KNUCKLE BENDER [address] [place] [address] 03/07/2024 9:00 AM CDT Hospital Encounter [facility] [address] [facility] [address] 5th [place] [address] Rocky Zepeda DO 500 [place], [place] 542915 03/07/2024 9:00 AM CDT - 03/07/2024 9:30 AM CDT Surgery [facility] [address] [facility] [address] 5th [place] [phone] Rocky Zepeda, 500 [place] [address] Esophagoscopy, gastroscopy, duodenoscopy (EGD), combined 06/21/2024 2:[address] LIAISON Office Visit [facility] [place] [address] [facility], [address] [place] [address] [place] [address] [place] [address] Johnny Penn MD [address] [place] [address] Scheduled Procedures Name Priority Associated Diagnoses [...] Out COVID-19 05/17/2022 05/17/2022 05/17/2022 10:[address] LIAISON Rule Out COVID-19 06/09/2022 06/09/2022 06/09/2022 9:[address] LIAISON COVID-19 06/09/2022 06/09/2022 06/30/2022 11:[address] LIAISON Rule Out COVID-19 11/10/2022 11/10/2022 11/11/2022 12:17 PM CDT Rule Out COVID-19 03/07/2023 03/07/2023 03/07/2023 1:20 PM CDT Rule Out COVID-19 12/26/2023 12/26/2023 12/26/2023 9:50 AM CDT Assessment Noted Time PHQ-9 Depression Total Score: 2 04/02/20 10:19 AM CDT documented as of this encounter Care Teams Floor Care Specialist Relationship Specialty Start Date End Date Marija Edgar APRN KNUCKLE BENDER PCP - General Nurse Practitioner 04/30/20 04/14/23 Esha Grimm PA-C [address] [place] [address] PCP - General Family Medicine 05/04/23 Lita Oseguera Personal Advocate & Liaison (PAL) 02/28/20 03/27/23 Marija Edgar APRN KNUCKLE BENDER Assigned PCP 06/08/20 04/29/23 Mynor Broussard MD [address] 789585 Assigned Surgical Provider 06/01/20 11/28/21 Keisha Dotson MD 909 [place], [place] 816855 Assigned Neuroscience Provider 06/04/20 04/01/23 Galo Burrell MD Assigned Heart and Vascular Provider 10/05/20 04/02/22 Diana Desir [facility] 30[address] [place], [place] 576766 Pharmacist Pharmacist 04/17/21 Rain Galaviz PA-C [address] [place] [address] [place] [address] Physician Tie Layer Dermatology 04/28/21 Summer Lara MD [address] [place] [address] Assigned OBGYN Provider 05/31/21 2 Tavia Wyatt MD [address] [place] [address] Dermatology 07/14/21 Johnny Murillo MD [address] [address] Assigned Musculoskeletal Provider 08/30/21 03/17/22 Erica Farrell APRN KNUCKLE BENDER [address] [facility] [address] [place] [address] Nurse Practitioner Cardiovascular Disease 09/09/21 Tavia Wyatt MD Assigned Surgical Provider 11/29/21 05/07/22 Diana Desir, [facility] 30[address] [place] [address] Assigned MTM Pharmacist 01/02/22 Rich Barrett MD 516 [facility], [address] 898105 Physician Ophthalmology 01/21/22 Neil Kent MD [address] [place] [address] Dermatology 02/24/22 Roney Story DPM [address] [facility] [address] [place], [place] 180[address] Assigned Musculoskeletal Provider 03/20/22 08/13/22 Erica Farrell APRN KNUCKLE BENDER 1700 [place] [address] Assigned Heart and Vascular Provider 04/03/22 04/16/22 Diana Desir, [facility] [address] [place], [place] 178666 Assigned MTM Pharmacist 04/07/22 Jelena David OD [address] [facility] [place] [address] Assigned Surgical Provider 05/08/22 10/08/22 Galo Burrell MD Assigned Heart and Vascular Provider 04/17/22 06/11/22 Livan Sharif MD [address] [facility]00 [place] [address] Cardiovascular Disease 05/14/22 Livan Sharif MD [address] [facility]00 [place] [address] Assigned Heart and Vascular Provider 06/12/22 07/23/22 Catherine Cm MD [address] [facility]00 [place], [place] 134105 Cardiovascular Disease 07/21/22 Valery Veronica, PA-C [address] [place] [address] Physician Tie Layer Dermatology 07/21/22 Catherine Cm MD [address] [facility] [place] [address] Assigned Heart and Vascular Provider 07/24/22 11/05/22 Johnny Murillo MD [facility] [address] [address] Assigned Musculoskeletal Provider 08/14/22 10/08/22 Brea Quinn APRN KNUCKLE BENDER [address] [place] [address] [phone] Nurse Practitioner Dermatology 09/21/22 Brea Quinn APRN KNUCKLE BENDER [address] [place] [address] 034342 Assigned Surgical Provider 10/09/22 [place] [address] [place] [address] [address] Assigned Musculoskeletal Provider 10/09/22 Livan Sharif MD [address], [facility] [place] [address] Assigned Heart and Vascular Provider 11/06/22 11/12/22 Catherine Cm MD [address] [facility] [place] [address] Assigned Heart and Vascular Provider 11/13/22 05/27/23 Sydnie Martinez RN Personal Advocate & Liaison (PAL) Family Medicine 03/28/23 07/31/23 Alfonso Renteria MD [address] [facility] [address] [place] [address] Assigned Neuroscience Provider 04/02/23 Cheng Todd PA-C [address] [place] [address] Assigned PCP 04/30/23 07/15/23 Radha Lomeli APRN KNUCKLE BENDER [address] [facility] [address] [place] [address] Assigned Heart and Vascular Provider 05/28/23 Jelena David OD [address] [facility] [place] [address] Ophthalmology 06/15/23 Pao Joseph, VJ Personal Advocate & Liaison (PAL) Nurse 08/01/23 11/07/23 Esha Grimm PA-C [address] [place] [address] Assigned PCP 07/16/23 Valery Veronica PA-C [address] [place] [address] 936225 Physician Tie Layer Dermatology 09/19/23 Rey Tay MD [address] [place] [address] 869695 Gastroenterology 09/20/23 Rocky Zepeda DO [address] [place] [address] Physician Gastroenterology 09/20/23 Philip Dumont MD 516 [place] [address] Physician Ophthalmology 09/22/23 Meredith Carrera PA-C [address] [place] [address] Assigned Gastroenterology Provider 11/01/23 Neil Kent MD [address] [address] Dermatology 11/02/23 [place] [address] [address] Neurological Surgery 12/26/23 documented as of this encounter
--- OUTSIDE RECORDS SUMMARY | 2024-02-12 05:51 | XMS_ITS | Encounter Summary ---
Author Organization [facility] Address [address] [place] [address] Care Team Providers Care Metal Filer Name Role Phone Lita Oseguera Unavailable Unavailable Marija Edgar APRN MICROBIOLOGY SOIL SCIENTIST Primary Care Provider U Marija Bella APRN MICROBIOLOGY SOIL SCIENTIST Unavailable Unavail able Mynor Broussard MD Unavailable [phone] Keisha Dotson MD Unavailable Galo Burrell MD Unavailable Unavailable Diana Desir [facility] Unavailable [phone] Rain Galaviz PA-C Unavailable [phone] Summer Lara MD Unavailable [phone] Tavia Wyatt MD Unavailable Unavailable Johnny Murillo MD Unavailable Erica Farrell APRN MICROBIOLOGY SOIL SCIENTIST Unavailable Teresita Bean [facility] Unavailable Tavia Wyatt MD Unavailable Unavailable Diana Desir [facility] Unavailable [phone] Rich Barrett MD Unavailable Neil [place] MD Unavailable Roney Story DPM Unavailable [phone] Erica Farrell APRN MICROBIOLOGY SOIL SCIENTIST Unavailable + Diana Desir [facility] Unavailable Jelena David OD Unavailable Galo Burrell MD Unavailable Unavailable Livan Sharif MD Unavailable Livan Sharif MD Unavailable IsCatherine hobbs MD Unavailable + Valery Veronica PA-C Unavailable [phone] Catherine Cm MD Unavailable + Johnny Murillo MD Unavailable [phone] Brea Quinn FLOOR LAYER APPRENTICE MICROBIOLOGY SOIL SCIENTIST Unavailable [phone] Brea Quinn FLOOR LAYER APPRENTICE MICROBIOLOGY SOIL SCIENTIST Unavailable [phone] Jose Francisco Johnson MD Unavailable Livan Sharif MD Unavailable + IsCatherine hobbs MD Unavailable + Sydnie Martinez RN Unavailable Unavailable Alfonso Renteria MD Unavailable sEha Grimm PA-C Primary Care Provider Cheng Todd PA-C Unavailable Radha Lomeli FLOOR LAYER APPRENTICE MICROBIOLOGY SOIL SCIENTIST Unavailable [phone] Jelena David OD Unavailable [phone] Pao Joseph RN Unavailable Unavailable Esha Grimm-C Unavailable [phone] Valery Veronica PA-C Unavailable [phone] Rey Tay MD Unavailable Rocky Zepeda DO Unavailable Philip Dumont MD Unavailable [phone] Meredith Carrera PA-C Unavailable [phone] Neil Kent MD Unavailable Juan Pablo Emmanuel MD Unavailable Encounter Details Date Type Department Care Team (Late st Contact Info) Description 09/24/2021 MyC Medical Advice [facility] [address] [facility] [address] [place] [address] Teresita Bean, [facility] [address] [facility] [place] [address] Social History Tobacco Use [...] How often do you attend islam or jain serv ices? Never 09/22/2021 Do [...] Answer Date Recorded PHQ-2 Score 2 09/22/2021 [facility] of Occupat ional [...] in a halfway (including now)? No 09/22/2021 Gorham Depression Scale Answer Date Recorded Gorham Depression Score 5 01/14/2021 Last EPDS Self [...] Description 02/14/2024 12:50 PM CDT Therapy Visit [facility] [address] [phone] Rustam Medina, PT [facility] [id number] [place] [address] 03/06/2024 3:00 PM CDT Office Visit [facility] [place] [address] [place] [address] [address] [place] [phone] Radha Lomeli E, FLOOR LAYER APPRENTICE MICROBIOLOGY SOIL SCIENTIST [address] [place] [address] 03/07/2024 9:00 AM CDT Hospital Encounter [facility] [address] [facility] [address] 5th [place] [phone] Rocky Zepeda DO [address] [place], [place] [address] 03/07/2024 9:00 AM CDT - 03/07/2024 9:30 AM CDT Surgery [facility] [address] [facility] [address] 5th [place] [phone] Rocky Zepeda DO 500 [place], [place] [address]115 Esophagoscopy, gastroscopy, duodenoscopy (EGD), combined 06/21/2024 2:00 PM ROBOTIC MAINTENANCE TECHNICIAN Office Visit [facility] [place] [address] [facility], [address] [place] [address] [place] [address] [place], [place] [phone] Johnny Penn MD [address] [place] [address] Scheduled Procedures Name Priority Associated Diagnoses Date/Ti [...] Out COVID-19 05/17/2022 05/17/2022 05/17/2022 10:20 PM ROBOTIC MAINTENANCE TECHNICIAN Rule Out COVID-19 06/09/2022 06/09/2022 06/09/2022 9:35 AM ROBOTIC MAINTENANCE TECHNICIAN COVID-19 06/09/2022 06/09/2022 06/30/2022 11:4 1 PM ROBOTIC MAINTENANCE TECHNICIAN Rule Out COVID-19 11/10/2022 11/10/2022 11/11/2022 12:17 PM CDT Rule Out COVID-19 03/07/2023 03/07/2023 03/07/2023 1:20 PM CDT Rule Out COVID-19 12/26/2023 12/26/2023 12/26/2023 9:50 AM CDT Assessment Noted Time PHQ-9 Depression Total Score: 2 04/02/20 10:19 AM CDT documented as of this encounter Care Teams Metal Filer Relationship Specialty Start Date End Date Marija Edgar APRN MICROBIOLOGY SOIL SCIENTIST PCP - General Nurse Practitioner 04/30/20 04/14/23 Esha Grimm PAUcheC [address] [place] [address] PCP - General Family Medicine 05/04/23 Lita Oseguera Personal Advocate & Liaison (PAL) 02/28/20 03/27/23 Marija Edgar APRN MICROBIOLOGY SOIL SCIENTIST Assigned PCP 06/08/20 04/29/23 Mynor Broussard MD [address] [address] Assigned Surgical Provider 06/01/20 11/28/21 Keisha Dotson MD 909 [place] [address] Assigned Neuroscience Provider 06/04/20 04/01/23 Galo Burrell MD Assigned Heart and Vascular Provider 10/05/20 04/02/22 [facility] [address] [place], [place] 536856 Pharmacist Pharmacist 04/17/21 Rain Galaviz PA-C [address] [facility] [address] [place] [address] Physician Passenger Interline Clerk Dermatology 04/28/21 Summer Lara MD [address] [place] [address] Assigned OBGYN Provider 05/31/21 2 Tavia Wyatt MD [address] [place] [address] Dermatology 07/14/21 Johnny Murillo MD [address] [place] [address] Assigned Musculoskeletal Provider 08/30/21 03/17/22 Erica Farrell APRN MICROBIOLOGY SOIL SCIENTIST [address] [place] [address] Nurse Practitioner Cardiovascular Disease 09/09/21 Teresita Bean, [facility] [address] [place] [address] Pharmacist Pharmacist 09/24/21 09/29/21 Tavia Wyatt MD Assigned Surgical Provider 11/29/21 05/07/22 [facility] [address] [place] [address] Assigned MTM Pharmacist 01/02/22 Rich Barrett MD [address] [facility] [address] [place] [address] Physician Ophthalmology 01/21/22 Neil Kent MD 500 [place], [place] 558285 Dermatology 02/24/22 Roney Story DPM [address] [address] [facility] [address] [place] [address] Assigned Musculoskeletal Provider 03/20/22 08/13/22 Erica Farrell APRN MICROBIOLOGY SOIL SCIENTIST 1700 [place] [address] Assigned Heart and Vascular Provider 04/03/22 04/16/22 [facility] 3033 [place] [address] Assigned MTM Pharmacist 04/07/22 Jelena David OD [address] [facility] [place] [address] Assigned Surgical Provider 05/08/22 10/08/22 Galo Burrell MD Assigned Heart and Vascular Provider 04/17/22 06/11/22 Livan Sharif MD [address] [place] [id number] Cardiovascular Disease 05/14/22 Livan Sharif MD [address] [place] [address]645 Assigned Heart and Vascular Provider 06/12/22 07/23/22 Catherine Cm MD [address] [place] [address] Cardiovascular Disease 07/21/22 Valery Veronica, PAUcheC [address] [place] [address] Physician Passenger Interline Clerk Dermatology 07/21/22 Catherine Cm MD [address] [facility] [address] [place] 9[address]185 Assigned Heart and Vascular Provider 07/24/22 11/05/22 Johnny Murillo MD [address] [place] [address] [id number] Assigned Musculoskeletal Provider 08/14/22 10/08/22 Brea Quinn APRN MICROBIOLOGY SOIL SCIENTIST [address] [place] [address] 571095 Nurse Practitioner Dermatology 09/21/22 Brea Quinn APRN MICROBIOLOGY SOIL SCIENTIST [address] [place] [address] [place] 104612 Assigned Surgical Provider 10/09/22 [place] [address] 066387 Assigned Musculoskeletal Provider 10/09/22 Livan Sharif MD [address] [place] [address] Assigned Heart and Vascular Provider 11/06/22 11/12/22 Catherine Cm MD [address] [place] [address] Assigned Heart and Vascular Provider 11/13/22 05/27/23 Sydnie Martinez RN Personal Advocate & Liaison (PAL) Family Medicine 03/28/23 07/31/23 Alfonso Renteria MD [address] [facility] [address] [place] [address] Assigned Neuroscience Provider 04/02/23 Cheng Todd PA-C [address] [place] [address] [id number] Assigned PCP 04/30/23 07/15/23 Radha Lomeli, ARLENE MICROBIOLOGY SOIL SCIENTIST [address] [place] [address] Assigned Heart and Vascular Provider 05/28/23 Jelena David OD [address] [facility] [place] [address] Ophthalmology 06/15/23 Pao Joseph, VJ Personal Advocate & Liaison (PAL) Nurse 08/01/23 11/07/23 Esha Grimm PA-C [address] [place] [address] Assigned PCP 07/16/23 Valery Veronica PA-C 909 [place], [place] 491875 Physician Passenger Interline Clerk Dermatology 09/19/23 Rey Tay MD [address] [place] [address] MD Gastroenterology 09/20/23 Rocky Zepeda DO [address] [place] [address] Physician Gastroenterology 09/20/23 Philip Dumont MD [address] [place] [address] Physician Ophthalmology 09/22/23 Meredith Carrera, PA-C [address] [place] [address] Assigned Gastroenterology Provider 11/01/23 Neil Kent MD [address] [address] Dermatology 11/02/23 [place] [address] [place] [address] 167067 Neurological Surgery 12/26/23 documented as of this encounter
--- OUTSIDE RECORDS SUMMARY | 2024-02-12 05:51 | XMS_ITS | Encounter Summary ---
Author Organization [facility] Address [address] [place] [address] Care Team Providers Care Acid Maker Name Role Phone Lita Oseguera Unavailable Unavailable Marija Edgar APRN EMS HELICOPTER PILOT Primary Care Provider U Marija Bella APRN EMS HELICOPTER PILOT Unavailable Unavail able Mynor Broussard MD Unavailable [phone] Keisha Dotson MD Unavailable Galo Burrell MD Unavailable Unavailable Diana Desir [facility] Unavailable [phone] Rain Galaviz PA-C Unavailable Summer Lara MD Unavailable [phone] Tavia Wyatt MD Unavailable Unavailable Johnny Murillo MD Unavailable Erica Farrell APRN EMS HELICOPTER PILOT Unavailable Teresita Bean [facility] Unavailable Tavia Wyatt MD Unavailable Unavailable Diana Desir [facility] Unavailable [phone] Rich Barrett MD Unavailable Neil Kent MD Unavailable Roney Story DPM Unavailable [phone] Erica Farrell APRN EMS HELICOPTER PILOT Unavailable + Diana Desir [facility] Unavailable Jelena David OD Unavailable [phone] Galo Burrell MD Unavailable Unavailable Livan Sharif MD Unavailable Livan Sharif MD Unavailable IsCatherine hobbs MD Unavailable + Valery Veronica PA-C Unavailable [phone] Catherine Cm MD Unavailable + Johnny Murillo MD Unavailable [phone] Brea Quinn BROADCAST ENGINEER EMS HELICOPTER PILOT Unavailable [phone] Brea Quinn BROADCAST ENGINEER EMS HELICOPTER PILOT Unavailable [phone] Jose Francisco Johnson MD Unavailable Livan Sharif MD Unavailable + IsCatherine hobbs MD Unavailable + Sydnie Martinez RN Unavailable Unavailable Alfonso Renteria MD Unavailable Esha Grimm PA-C Primary Care Provider Cheng Todd PA-C Unavailable Radha Lomeli BROADCAST ENGINEER EMS HELICOPTER PILOT Unavailable [phone] Jelena David OD Unavailable [phone] Pao Joseph RN Unavailable Unavailable Esha Grimm-C Unavailable [phone] Valery Veronica PA-C Unavailable [phone] Rey Tay MD Unavailable Rocky Zepeda DO Unavailable Philip Dumont MD Unavailable [phone] Meredith Carrera PA-C Unavailable Neil Kent MD Unavailable Juan Pablo Emmanuel MD Unavailable [phone] Encounter Details Date Type Department Care Team [...] How often do you attend chur or gnosticist services? More than 4 times [...] Answer Date Recorded PHQ-2 Score 0 04/02/2021 [facility]at ional Health [...] slept in a fdc (including now)? No 08/11/2020 Cadott Depression Scale Answer Date Recorded Cadott Depression Score 5 01/14/2021 Last EPDS Self [...] COVID-19? No / Unsure 08/03/2021 2:24 PM HAIR CLIPPER POWER documented as of this encounter Plan of Treatment Upcoming Encounters Date Type Department Care Team (Latest Contact Info) Description 02/14/2024 12:50 PM CDT Therapy Visit [facility] [address] [place] [phone] Rustam Medina, PT [facility] [address] [place] [address] 03/06/2024 3:00 PM CDT Office Visit [facility] [place] [address] [place] [address] [address] [place] [phone] Radha Lomeli APRN EMS HELICOPTER PILOT [address] [facility] [address] [place] [address] 03/07/2024 9:00 AM CDT Hospital Encounter [address] [place] [address] Rocky Zepeda DO 500 [place], [place] 8[address] 03/07/2024 9:00 AM CDT - 03/07/2024 9:30 AM CDT Surgery [address]th [place] [address] Rocky Zepeda, DO [address] [place] [address] Esophagoscopy, gastroscopy, duodenoscopy (EGD), combined 06/21/2024 2:00 PM HAIR CLIPPER POWER Office Visit [facility] Neurology [facility] [address] [facility], [address] [place] [address] [place] [address] [place] [address] Johnny Penn MD [address] [place] [id number] Scheduled Procedures Name Priority Associated Diagnoses Date/Ti ma ESOPHAGOGASTRODUODENOSCOPY Eosinophilic esophagitis Esophageal dysphagia 03/07/2024 9:00 AM CDT documented as of this encounter Visit Diagnoses Not on filedocumented in this encounter Additional Health Concerns Infection Onset Date Last Indicated Resolved Time COVID-19 07/18/2021 07/18/2021 08/08/2021 11:3 9 PM HAIR CLIPPER POWER Rule Out COVID-19 12/18/2021 12/18/2021 12/19/2021 11:34 AM CDT Rule Out COVID-19 02/24/2022 02/24/2022 02/25/2022 1:08 PM CDT Rule Out COVID-19 04/26/2022 04/26/2022 04/26/2022 6:47 AM CDT Rule Out COVID-19 05/17/2022 05/17/2022 05/17/2022 10:20 PM HAIR CLIPPER POWER Rule Out COVID-19 06/09/2022 06/09/2022 06/09/2022 9:35 AM HAIR CLIPPER POWER COVID-19 06/09/2022 06/09/2022 06/30/2022 11:4 1 PM HAIR CLIPPER POWER Rule Out COVID-19 11/10/2022 11/10/2022 11/11/2022 12:17 PM CDT Rule Out COVID-19 03/07/2023 03/07/2023 03/07/2023 1:20 PM CDT Rule Out COVID-19 12/26/2023 12/26/2023 12/26/2023 9:50 AM CDT Assessment Noted Time PHQ-9 Depression Total Score: 2 04/02/20 10:19 AM CDT documented as of this encounter Care Teams Acid Maker Relationship Specialty Start Date End Date Marija Edgar APRN EMS HELICOPTER PILOT PCP - General Nurse Practitioner 04/30/20 04/14/23 Esha Grimm PA-C [address] [place] [address] PCP - General Family Medicine 05/04/23 Lita Oseguera Personal Advocate & Liaison (PAL) 02/28/20 03/27/23 Marija Edgar APRN EMS HELICOPTER PILOT Assigned PCP 06/08/20 04/29/23 Mynor Broussard MD [address] [facility] 500 [place], [place] 348735 Assigned Surgical Provider 06/01/20 11/28/21 Keisha Dotson MD 909 [place], [place] 546[address] Assigned Neuroscience Provider 06/04/20 04/01/23 Galo Burrell MD Assigned Heart and Vascular Provider 10/05/20 04/02/22 Diana Desir, [facility] [address] [place], [place] 5[address] Pharmacist Pharmacist 04/17/21 Rain Galaviz PA-C [address] [place] [address] [place] [address] Physician Kalsominer Dermatology 04/28/21 Summer Lara MD [address] [place] [address] Assigned OBGYN Provider 05/31/21 2 Tavia Wyatt MD [address] [place] [address] Dermatology 07/14/21 Johnny Murillo MD [address] [place] [address] Assigned Musculoskeletal Provider 08/30/21 03/17/22 Erica Farrell APRN EMS HELICOPTER PILOT [address] [facility] [address] [place] [address] Nurse Practitioner Cardiovascular Disease 09/09/21 Teresita Bean, [facility] [address] [place] [address] Pharmacist Pharmacist 09/24/21 09/29/21 Tavia Wyatt MD Assigned Surgical Provider 11/29/21 05/07/22 [facility] [address] [place] [address] Assigned MTM Pharmacist 01/02/22 Rich Barrett MD [address] [facility] [address] [place] [address] Physician Ophthalmology 01/21/22 Neil Kent MD 500 [place] [address] Dermatology 02/24/22 Roney Story DPM [address] [facility] [address] [place] [address] Assigned Musculoskeletal Provider 03/20/22 08/13/22 Erica Farrell APRN EMS HELICOPTER PILOT 1700 [place] [address] Assigned Heart and Vascular Provider 04/03/22 04/16/22 Diana Desir, [facility] [address] [place] [address] Assigned MTM Pharmacist 04/07/22 Jelena David OD [address] [facility] [place] [address] Assigned Surgical Provider 05/08/22 10/08/22 Galo Burrell MD Assigned Heart and Vascular Provider 04/17/22 06/11/22 Livan Sharif MD [address] [place] [address] Cardiovascular Disease 05/14/22 Livan Sharif MD [address] [place] 3876[address] Assigned Heart and Vascular Provider 06/12/22 07/23/22 Catherine Cm MD [address] [place] [address] Cardiovascular Disease 07/21/22 Valery Veronica, PAUcheC [address] [place] [address] Physician Kalsominer Dermatology 07/21/22 Catherine Cm MD [address] [facility] [place] [address] Assigned Heart and Vascular Provider 07/24/22 11/05/22 Johnny Murillo MD [address] [place] [address] Assigned Musculoskeletal Provider 08/14/22 10/08/22 Brea Quinn APRN EMS HELICOPTER PILOT [address] [place] [address] Nurse Practitioner Dermatology 09/21/22 Brea Quinn APRN EMS HELICOPTER PILOT [address] [place] [address] Assigned Surgical Provider 10/09/22 [place] [address] [address] Assigned Musculoskeletal Provider 10/09/22 Livan Sharif MD [address] [place] [address] Assigned Heart and Vascular Provider 11/06/22 11/12/22 Catherine Cm MD [address] [place] [address] Assigned Heart and Vascular Provider 11/13/22 05/27/23 Sydnie Martinez RN Personal Advocate & Liaison (PAL) Family Medicine 03/28/23 07/31/23 Alfonso Renteria MD [address] [facility] [address] [place] [address] Assigned Neuroscience Provider 04/02/23 Cheng Todd PA-C [address] [place] [address] [phone] Assigned PCP 04/30/23 07/15/23 Radha Lomeli APRN EMS HELICOPTER PILOT [address] [place] [address] Assigned Heart and Vascular Provider 05/28/23 Jelena David OD [address] [facility] [place] [address] Ophthalmology 06/15/23 Pao Joseph RN Personal Advocate & Liaison (PAL) Nurse 08/01/23 11/07/23 Esha Grimm PA-C [address] [place] [address] Assigned PCP 07/16/23 Valery Veronica PA-C [address] [place] [address] 807635 Physician Kalsominer Dermatology 09/19/23 Rey Tay MD [address] [place] [address] Gastroenterology 09/20/23 Rocky Zepeda DO [address] [place] [address] Physician Gastroenterology 09/20/23 Philip Dumont MD [address] [place] [address] 849305 Physician Ophthalmology 09/22/23 Meredith Carrera PA-C [address] [place] [address] 374765 Assigned Gastroenterology Provider 11/01/23 Neil Kent MD [address] [place] [address] Dermatology 11/02/23 [place] [address] [address] 612077 Neurological Surgery 12/26/23 documented as of this encounter
--- OUTSIDE RECORDS SUMMARY | 2024-02-12 05:51 | XMS_ITS | Encounter Summary ---
Author Organization [place] Address [address] [place] [address] Care Team Providers Care Ceo And President Name Role Phone Liat Oseguera Unavailable Unavailable Marija Edgar APRN FITNESS PROFESSIONAL Primary Care Provider U Marija Bella APRN FITNESS PROFESSIONAL Unavailable Unavail able Mynor Broussard MD Unavailable [phone] Keisha Dotson MD Unavailable [phone] Galo Burrell MD Unavailable Unavailable Diana Desir [facility] Unavailable [phone] Rain Galaviz PA-C Unavailable Summer Lara MD Unavailable [phone] Tavia Wyatt MD Unavailable Unavailable Johnny Murillo MD Unavailable Erica Farrell APRN FITNESS PROFESSIONAL Unavailable Tavia Wyatt MD Unavailable Unavailable Diana Desir [facility] Unavailable [phone] Rich Barrett MD Unavailable [phone] Neil Kent MD Unavailable Roney StoyrM Unavailable [phone] Erica Farrell APRN FITNESS PROFESSIONAL Unavailable Diana Desir [facility] Unavailable [phone] Jelena David OD Unavailable Galo Burrell MD Unavailable Unavailable Liavn Sharif MD Unavailable Livan Sharif MD Unavailable IsCatherine hobbs MD Unavailable + Valery Veronica PA-C Unavailable [phone] Catherine Cm MD Unavailable + Johnny Murillo MD Unavailable [phone] Brea Quinn CELLARS SUPERVISOR FITNESS PROFESSIONAL Unavailable [phone] Brea Quinn CELLARS SUPERVISOR FITNESS PROFESSIONAL Unavailable [phone] Jose Francisco Johnson MD Unavailable Livan Sharif MD Unavailable + IsCatherine hobbs MD Unavailable + Sydnie [place] RN Unavailable Unavailable Alfonso Renteria MD Unavailable [phone] Esha Grimm PA-C Primary Care Provider Cheng Todd PA-C Unavailable Radha Lomeli APRN FITNESS PROFESSIONAL Unavailable [phone] Jelena David OD Unavailable Pao Joseph RN Unavailable Unavailable Esha Grimm PA-C Unavailable [phone] Valery Veronica PA-C Unavailable [phone] Rey Tay MD Unavailable Rocky Zepeda DO Unavailable Philip Dumont MD Unavailable [phone] Meredith Carrera PA-C Unavailable [phone] Neil Kent MD Unavailable Juan Pablo Emmanuel MD Unavailable [phone] Reason for Visit * Reason Onset Date Comments Refill Request 10/31/2021 sertraline Encounter Details Date Type Department Care Team (Late st Contact Info) Description 10/31/[address] [place] [address] [address] Marija Edgar APRN FITNESS PROFESSIONAL Refill Request (sertraline) Social History Tobacco Use [...] How often do you attend [employer] [facility] [employer] [facility]? Never 09/22/2021 Do [...] in a longterm (including now)? No 09/22/2021 [place] Depression Scale Answer Date Recorded [place] [...] - 11/02/2021 8:58 AM CDT Approved per [facility] CPA. Diana Desir PharmD Medication Therapy Management Provider, [facility] Pager: [phone] * Telephone Encounter - Aleyda Scott RN [...] daily. Pt has follow up tomorrow with [facility] pharmacist to continue to work on taper. Appointments in Next Year Nov 03, 2021 3:30 PM Pharmacist Visit with Diana Desir RPH [facility] ([facility] ) [phone] Informed patient that will route refill request [...] can be reached at: Other phone number: [phone] Best Time: ANYTIME Can we leave a detailed message on this number? YES Call taken on 10/31/2021 at 10:31 AM by Amalia Deluca documented in this encounter Plan of Treatment Upcoming Encounters Date Type Department Care Team (Latest Contact Info) Description 02/14/2024 12:50 PM CDT Therapy Visit [facility] [address] [address] Rustam [place]ina, PT [facility] [address] [place] [address] 03/06/2024 3:00 PM CDT Office Visit [facility] [place] [address] [facility] [address] [place] [phone] Radha Lomeli, CELLARS SUPERVISOR FITNESS PROFESSIONAL [address] [facility] [address] [place] [address] 03/07/2024 9:00 AM CDT Hospital Encounter [facility] [address] [place] [address] SE 5th [place] [phone] Rocky Zepeda DO [address] [place] [address] 03/07/2024 9:00 AM CDT - 03/07/2024 9:30 AM CDT Surgery [address] 5th [place] [phone] Rocky Zepeda, DO [address] [place], [place] 7488[address] Esophagoscopy, gastroscopy, duodenoscopy (EGD), combined 06/21/2024 2:00 PM RETAIL STOCK CLERK Office Visit [facility] [place] [address] [facility], [address] [place] [address] [place] [address] [facility] [place] [place] [address] Johnny Penn MD [address] [place] [address] Scheduled Procedures Name Priority Associated Diagnoses [...] COVID-19 05/17/2022 05/17/2022 05/17/2022 10:20 PM RETAIL STOCK CLERK Rule Out COVID-19 06/09/2022 06/09/2022 06/09/2022 9:35 AM RETAIL STOCK CLERK COVID-19 06/09/2022 06/09/2022 06/30/2022 11:4 1 PM RETAIL STOCK CLERK Rule Out COVID-19 11/10/2022 11/10/2022 11/11/2022 12:17 PM CDT Rule Out COVID-19 03/07/2023 03/07/2023 03/07/2023 1:20 PM CDT Rule Out COVID-19 12/26/2023 12/26/2023 12/26/2023 9:50 AM CDT Assessment Noted Time PHQ-9 Depression Total Score: 2 04/02/20 10:19 AM CDT documented as of this encounter Care Teams Ceo And President Relationship Specialty Start Date End Date Marija Edgar APRN FITNESS PROFESSIONAL PCP - General Nurse Practitioner 04/30/20 04/14/23 Esha Grimm PA-C [address] [place] [address] PCP - General Family Medicine 05/04/23 Lita Oseguera Personal Advocate & Liaison (PAL) 02/28/20 03/27/23 Marija Edgar APRN FITNESS PROFESSIONAL Assigned PCP 06/08/20 04/29/23 Mynor Broussard MD [address] [address] Assigned Surgical Provider 06/01/20 11/28/21 Keisha Dotson MD [address] [place] [address] Assigned Neuroscience Provider 06/04/20 04/01/23 Galo Burrell MD Assigned Heart and Vascular Provider 10/05/20 04/02/22 Diana Desir, [facility] [address] [place], [place] 7769[address] Pharmacist Pharmacist 04/17/21 Rain Galaviz PA-C [address] [place] [address] Physician Career Advisor Dermatology 04/28/21 Summer Lara MD [address] [place] [address] Assigned OBGYN Provider 05/31/21 2 Tavia Wyatt MD [address] [place] [address] Dermatology 07/14/21 Johnny Murillo MD [address] [facility] [address] [place] [address] Assigned Musculoskeletal Provider 08/30/21 03/17/22 Erica Farrell APRN FITNESS PROFESSIONAL [address] [facility] [address] [place] [address] Nurse Practitioner Cardiovascular Disease 09/09/21 Tavia Wyatt MD Assigned Surgical Provider 11/29/21 05/07/22 Diana eDsir, [facility] [address] [place] [address] Assigned MTM Pharmacist 01/02/22 Rich Barrett MD [address] [phone] Physician Ophthalmology 01/21/22 Neil Kent MD [address] [place] [address] 792345 Dermatology 02/24/22 Roney Story DPM [address] [facility] [address] [place] [address] Assigned Musculoskeletal Provider 03/20/22 08/13/22 Erica Farrell APRN FITNESS PROFESSIONAL [address] [place] [address] Assigned Heart and Vascular Provider 04/03/22 04/16/22 Diana Desir, [facility] [address] [place], [place] 035526 Assigned MTM Pharmacist 04/07/22 Jelena David OD [address] [facility] [place] [address] Assigned Surgical Provider 05/08/22 10/08/22 Galo Burrell MD Assigned Heart and Vascular Provider 04/17/22 06/11/22 Livan Sharif MD [address] [place] [address] Cardiovascular Disease 05/14/22 Livan Sharif MD [address] [place] [address] Assigned Heart and Vascular Provider 06/12/22 07/23/22 Catherine Cm MD [address] [place] [address] Cardiovascular Disease 07/21/22 Valery Veronica, PAUcheC 909 [place] [address] Physician Career Advisor Dermatology 07/21/22 Catherine Cm MD [address] [facility] [address] [place] [address] Assigned Heart and Vascular Provider 07/24/22 11/05/22 Johnny Murillo MD [facility] [address] [address] Assigned Musculoskeletal Provider 08/14/22 10/08/22 Brea Quinn APRN FITNESS PROFESSIONAL [address] [place] [address] [phone] Nurse Practitioner Dermatology 09/21/22 Brea Quinn APRN FITNESS PROFESSIONAL [address] [place] [address] [place] [id number] Assigned Surgical Provider 10/09/22 [place] [address] 722717 Assigned Musculoskeletal Provider 10/09/22 Livan Sharif MD [address] Syl[place], [facility] [address] [place] [address] Assigned Heart and Vascular Provider 11/06/22 11/12/22 Catherine Cm MD [address] [facility] [place] [address] Assigned Heart and Vascular Provider 11/13/22 05/27/23 Sydnie [place] RN Personal Advocate & Liaison (PAL) Family Medicine 03/28/23 07/31/23 Alfonso Renteria MD [address] [facility] [address] [place] [address] Assigned Neuroscience Provider 04/02/23 Cheng Todd PA-C [address] [place] [address] Assigned PCP 04/30/23 07/15/23 Radha Lomeli APRN FITNESS PROFESSIONAL [address] [facility] [address] [place] [address] Assigned Heart and Vascular Provider 05/28/23 Jelena David OD [address] [facility] [place] [address] Ophthalmology 06/15/23 Pao Joseph, VJ Personal Advocate & Liaison (PAL) Nurse 08/01/23 11/07/23 Esha Grimm PA-C [address] [place] [address] Assigned PCP 07/16/23 Valery Veronica PA-C [address] [place] [address] 788965 Physician Career Advisor Dermatology 09/19/23 Rey Tay MD 909 [place] [address] Gastroenterology 09/20/23 Rocky Zepeda DO [address] [place] [address] Physician Gastroenterology 09/20/23 Philip Dumont MD [address] [place] [address] Physician Ophthalmology 09/22/23 Meredith Carrera PA-C [address] [place] [address] Assigned Gastroenterology Provider 11/01/23 Neil Kent MD [address] [place] [address] Dermatology 11/02/23 [place] [address] [place] [address] 833147 Neurological Surgery 12/26/23 documented as of this encounter
--- OUTSIDE RECORDS SUMMARY | 2024-02-12 05:52 | XMS_ITS | Encounter Summary ---
Author Organization [place] Address [address] [place] [address] Care Team Providers Care Hyperbaric Nurse Name Role Phone Lita Oseguera Unavailable Unavailable Marija Edgar APRN CONSUMER EDUCATOR Primary Care Provider U Marija Bella APRN CONSUMER EDUCATOR Unavailable Unavail able Mynor Broussard MD Unavailable [phone] Keisha Dotson MD Unavailable [phone] Galo Burrell MD Unavailable Unavailable Diana Desir [facility] Unavailable Rain Galaviz PA-C Unavailable Summer Lara MD Unavailable [phone] Tavia Wyatt MD Unavailable Unavailable Johnny Murillo MD Unavailable Erica Farrell APRN CONSUMER EDUCATOR Unavailable Teresita Bean [facility] Unavailable [phone] Tavia Wyatt MD Unavailable Unavailable Diana Desir [facility] Unavailable [phone] Rich Barrett MD Unavailable Neil Kent MD Unavailable Roney Story DPM Unavailable [phone] Erica Farrell APRN CONSUMER EDUCATOR Unavailable + Diana Desir [facility] Unavailable Jelena David OD Unavailable Galo Burrell MD Unavailable Unavailable Livan Sharif MD Unavailable Livan Sharif MD Unavailable IsCatherine hobbs MD Unavailable + Valery Veronica PA-C Unavailable [phone] Catherine Cm MD Unavailable + Johnny Murillo MD Unavailable [phone] Brea Quinn PALLET SORTER CONSUMER EDUCATOR Unavailable [phone] Brea Quinn PALLET SORTER CONSUMER EDUCATOR Unavailable [phone] Jose Francisco Johnson MD Unavailable Livan Sharif MD Unavailable + IsCatherine hobbs MD Unavailable + Sydnie [place] RN Unavailable Unavailable Alfonso Renteria MD Unavailable Esha Grimm PA-C Primary Care Provider Cheng Todd PA-C Unavailable Radha Lomeli PALLET SORTER CONSUMER EDUCATOR Unavailable [phone] Jelena David OD Unavailable [phone] Pao Joseph RN Unavailable Unavailable Esha Grimm-C Unavailable [phone] Valery Veronica PA-C Unavailable [phone] Rey Tay MD Unavailable Rocky Zepeda DO Unavailable Philip Dumont MD Unavailable [phone] Meredith aCrrera PA-C Unavailable Neil Kent MD Unavailable Juan Pablo Emmanuel MD Unavailable [phone] Encounter Details Date Type Department Care Team (Late st Contact Info) Description 07/14/2021 MyC Medical Advice [address] [phone] Lauren Gan, RN Social History Tobacco Use [...] a skilled nursing (including now)? No 08/11/2020 [place] Depression Scale Answer Date Recorded [place] Depression Score 5 01/14/2021 Last EPDS Self [...] Coronavirus / COVID-19? Yes 07/15/2021 12:15 PM V BELT INSPECTOR documented as of this encounter Plan of Treatment Upcoming Encounters Date Type Department Care Team (Latest Contact Info) Description 02/14/2024 12:50 PM CDT Therapy Visit [facility] [address] [address] Rustam [place], PT [facility] [phone] [place] [address] 03/06/2024 3:00 PM CDT Office Visit [facility] [place] [address] [place] [address] [address] [place] [phone] Radha Lomeli APRN CONSUMER EDUCATOR [address] [place] [address] 03/07/2024 9:00 AM CDT Hospital Encounter [facility] [address] [facility] SE 5th [place] [phone] Rocky Zepeda DO [address] [place], [place] [address] 03/07/2024 9:00 AM CDT - 03/07/2024 9:30 AM CDT Surgery [facility] [address] [facility] SE 5th [place] [address] Rocky Zepeda, [address] [place], [place] [address] Esophagoscopy, gastroscopy, duodenoscopy (EGD), combined 06/21/2024 2:00 PM V BELT INSPECTOR Office Visit [facility] [place] [address] [facility], [address] [place] [address] [place] [address] [place] [address] Johnny Penn MD [address] [place] [address] Scheduled Procedures Name Priority Associated Diagnoses Date/Ti tx ESOPHAGOGASTRODUODENOSCOPY Eosinophilic esophagitis Esophageal dysphagia 03/07/2024 9:00 AM CDT documented as of this encounter Visit Diagnoses Not on filedocumented in this encounter Additional Health Concerns Infection Onset Date Last Indicated Resolved Time Rule Out COVID-19 07/13/2021 07/13/2021 07/14/2021 3:04 PM V BELT INSPECTOR Rule Out COVID-19 07/18/2021 07/18/2021 07/20/2021 1:56 PM V BELT INSPECTOR COVID-19 07/18/2021 07/18/2021 08/08/2021 11:3 9 PM V BELT INSPECTOR Rule Out COVID-19 12/18/2021 12/18/2021 12/19/2021 11:34 AM CDT Rule Out COVID-19 02/24/2022 02/24/2022 02/25/2022 1:08 PM CDT Rule Out COVID-19 04/26/2022 04/26/2022 04/26/2022 6:47 AM CDT Rule Out COVID-19 05/17/2022 05/17/2022 05/17/2022 10:20 PM V BELT INSPECTOR Rule Out COVID-19 06/09/2022 06/09/2022 06/09/2022 9:35 AM V BELT INSPECTOR COVID-19 06/09/2022 06/09/2022 06/30/2022 11:4 1 PM V BELT INSPECTOR Rule Out COVID-19 11/10/2022 11/10/2022 11/11/2022 12:17 PM CDT Rule Out COVID-19 03/07/2023 03/07/2023 03/07/2023 1:20 PM CDT Rule Out COVID-19 12/26/2023 12/26/2023 12/26/2023 9:50 AM CDT Assessment Noted Time PHQ-9 Depression Total Score: 2 04/02/20 10:19 AM CDT documented as of this encounter Care Teams Hyperbaric Nurse Relationship Specialty Start Date End Date Marija Edgar APRN CONSUMER EDUCATOR PCP - General Nurse Practitioner 04/30/20 04/14/23 Esha Grimm PAUcheC [address] [place] [phone] PCP - General Family Medicine 05/04/23 Lita Oseguera Personal Advocate & Liaison (PAL) 02/28/20 03/27/23 Marija Edgar APRN CONSUMER EDUCATOR Assigned PCP 06/08/20 04/29/23 Mynor Broussard MD [address] [address] Assigned Surgical Provider 06/01/20 11/28/21 eKisha Dotson MD 909 [place] [address] Assigned Neuroscience Provider 06/04/20 04/01/23 Galo Burrell MD Assigned Heart and Vascular Provider 10/05/20 04/02/22 Diana Desir, [facility] [address] [place] [address] Pharmacist Pharmacist 04/17/21 Rain Galaviz PA-C [address] [place] [address] [place] [address] Physician Head Porter Baggage Dermatology 04/28/21 Summer Lara MD [address] [place] [address] Assigned OBGYN Provider 05/31/21 2 Tavia Wyatt MD [address] [place] [address] Dermatology 07/14/21 Johnny Murillo MD [address] [place] [address] Assigned Musculoskeletal Provider 08/30/21 03/17/22 Erica Farrell APRN CONSUMER EDUCATOR [address] [facility] [address] [place] [address] Nurse Practitioner Cardiovascular Disease 09/09/21 Teresita Bean, [facility] [address] [place] [address] Pharmacist Pharmacist 09/24/21 09/29/21 Tavia Wyatt MD Assigned Surgical Provider 11/29/21 05/07/22 Diana Desir, [facility] [address] [place] [address] Assigned MTM Pharmacist 01/02/22 Rich Barrett MD [address] 6818[address] Physician Ophthalmology 01/21/22 Neil Kent MD 500 [place], [place] 9940[address] Dermatology 02/24/22 Roney Story DPM [address] [facility] [address] [place], [place] 761867 Assigned Musculoskeletal Provider 03/20/22 08/13/22 Erica Farrell APRN CONSUMER EDUCATOR [address] [place] [address] Assigned Heart and Vascular Provider 04/03/22 04/16/22 Diana Desir, [facility] [address] [place] [address] Assigned MTM Pharmacist 04/07/22 Jelena David OD [address] [facility] [address] Assigned Surgical Provider 05/08/22 10/08/22 Galo Burrell MD Assigned Heart and Vascular Provider 04/17/22 06/11/22 Livan Sharif MD [address] [facility] [address] [place] [address] Cardiovascular Disease 05/14/22 Livan Sharif MD [address], [facility] [address] [place] [address] Assigned Heart and Vascular Provider 06/12/22 07/23/22 Catherine Cm MD [address] [facility] [address] [place] [address] Cardiovascular Disease 07/21/22 Valery Veronica, PA-C [address] [place] [address] 316545 Physician Head Porter Baggage Dermatology 07/21/22 Catherine Cm MD [address] [facility] [place] [place] [address] Assigned Heart and Vascular Provider 07/24/22 11/05/22 Johnny Murillo MD [address] 707[address] Assigned Musculoskeletal Provider 08/14/22 10/08/22 Brea Quinn APRN CONSUMER EDUCATOR [address] [place] [address] 787485 Nurse Practitioner Dermatology 09/21/22 Brea Quinn APRN CONSUMER EDUCATOR [address] [place] [address] [place] 969122 Assigned Surgical Provider 10/09/22 [place] [address] [place] [address] 268567 Assigned Musculoskeletal Provider 10/09/22 Livan Sharif MD [address] [place], [place] 14[address] Assigned Heart and Vascular Provider 11/06/22 11/12/22 Catherine Cm MD [address] [place] [address] Assigned Heart and Vascular Provider 11/13/22 05/27/23 Sydnie Martinez RN Personal Advocate & Liaison (PAL) Family Medicine 03/28/23 07/31/23 Alfonso Renteria MD [address] [facility] 200 [place] [address] Assigned Neuroscience Provider 04/02/23 Cheng Todd PA-C [address] [place] [address] [id number] Assigned PCP 04/30/23 07/15/23 Radha Lomeli APRN CONSUMER EDUCATOR [address] [place] [address] Assigned Heart and Vascular Provider 05/28/23 Jelena David OD [address] [facility] [address] Ophthalmology 06/15/23 Pao Joseph, VJ Personal Advocate & Liaison (PAL) Nurse 08/01/23 11/07/23 Esha Grimm PA-C [address] [place] [address] Assigned PCP 07/16/23 Valery Veronica PA-C [address] [place] [address] Physician Head Porter Baggage Dermatology 09/19/23 Rey Tay MD [address] [place] [address] MD Gastroenterology 09/20/23 Rocky Zepeda DO [address] [place] [address] Physician Gastroenterology 09/20/23 Philip Dumont MD [address] [place] [address] Physician Ophthalmology 09/22/23 Meredith Carrera PA-C [address] [place] [address] Assigned Gastroenterology Provider 11/01/23 Neil Kent MD [address] [address] Dermatology 11/02/23 [place] [address] [place] [address] Neurological Surgery 12/26/23 documented as of this encounter
--- OUTSIDE RECORDS SUMMARY | 2024-02-12 05:52 | XMS_ITS | Encounter Summary ---
Author Organization [place] Address [address] [place] [address] Care Team Providers Care Early Head Start Director Name Role Phone Lita Oseguera Unavailable Unavailable Marija Edgar APRN ASSISTANT PRESS OPERATOR OFFSET Primary Care Provider Chanelle Gutierrez APRN CN Unavailab le Marija Edgar APRN ASSISTANT PRESS OPERATOR OFFSET Unavailable Unavail able Mynor Broussard MD Unavailable [phone] Keisha Dotson MD Unavailable Galo Burrell MD Unavailable Unavailable Diana Desir [facility] Unavailable Rain Galaviz PA-C Unavailable Summer Lara MD Unavailable [phone] Summer Lara MD Unavailable [phone] Summer Lara MD Unavailable [phone] Tavia Wyatt MD Unavailable Unavailable Johnny Murillo MD Unavailable [phone] Erica Farrell APRN ASSISTANT PRESS OPERATOR OFFSET Unavailable Teresita Bean [facility] Unavailable Tavia Wyatt MD Unavailable Unavailable Diana Desir [facility] Unavailable [phone] Rich Barrett MD Unavailable [phone] Neil Kent MD Unavailable Roney Story DPM Unavailable Erica Farrell MOLD POLISHER ASSISTANT PRESS OPERATOR OFFSET Unavailable ThangDiana [facility] Unavailable Jelena David OD Unavailable Galo Burrell MD Unavailable Unavailable HoLivan MD Unavailable Livan Sharif MD Unavailable Catherine Cm MD Unavailable + Valery Veronica PA-C Unavailable [phone] Catherine Cm MD Unavailable + Johnny Murillo MD Unavailable [phone] Brea Quinn MOLD POLISHER ASSISTANT PRESS OPERATOR OFFSET Unavailable [phone] Brea Quinn MOLD POLISHER ASSISTANT PRESS OPERATOR OFFSET Unavailable [phone] Jose Francisco Johnson MD Unavailable Livan Sharif MD Unavailable IsCatherine hobbs MD Unavailable + Sydnie Martinez RN Unavailable Unavailable Alfonso Renteria MD Unavailable Esha Grimm-C Primary Care Provider Cheng Todd PA-C Unavailable Radha Lomeli MOLD POLISHER ASSISTANT PRESS OPERATOR OFFSET Unavailable Jelena David OD Unavailable Pao Joseph RN Unavailable Unavailable Esha Grimm-C Unavailable [phone] Valery Veronica PA-C Unavailable Rey Tay MD Unavailable Rocky Zepeda DO Unavailable Philip Dumont MD Unavailable [phone] Meredith Carrera PA-C Unavailable [phone] Neil Kent MD Unavailable Juan Pablo Emmanuel MD Unavailable [phone] Encounter Details Date Type Department Care Team (Late st Contact Info) Description 04/28/2021 MyC Medical Advice [address] [address] Marija Edgar APRN CNP Social [...] medical care at [facility]? More than 4 times per year [...] Answer Date Recorded PHQ-2 Score 0 04/02/2021 [facility] - [...] in a retirement (including now)? No 08/11/2020 [place] Depression Scale Answer Date Recorded [place] Depression Score 5 01/14/2021 Last EPDS Self [...] CDT Therapy Visit [facility] [address] [phone] Rustam Medina, PT [facility] [address] [place] [address] 03/06/2024 3:00 PM CDT Office Visit [facility] [place] [address] [facility] [address] [place] [address] Radha Lomeli APRN ASSISTANT PRESS OPERATOR OFFSET [address] [place] [address] 03/07/2024 9:00 AM CDT Hospital Encounter [facility] [address] [facility] [address] 5th [place] [address] Rocky Zepeda DO 500 [place], [place] 92[address] 03/07/2024 9:00 AM CDT - 03/07/2024 9:30 AM CDT Surgery [facility] [address] [facility] [address] 5th [place] [phone] Rocky Zepeda DO 500 [place], [place] 0840[address] Esophagoscopy, gastroscopy, duodenoscopy (EGD), combined 06/21/2024 2:00 PM CLOTH DYEING RANGE TENDER Office Visit [facility] [place] [address] [place] [address], [address] [place] [phone] [place] [address] [place], [place] [phone] Johnny Penn MD [address] [place], [place] [phone] Scheduled Procedures Name Priority Associated Diagnoses Date/Ti ak ESOPHAGOGASTRODUODENOSCOPY Eosinophilic esophagitis Esophageal dysphagia 03/07/2024 9:00 AM CDT documented as of this encounter Visit Diagnoses Not on filedocumented in this encounter Additional Health Concerns Infection Onset Date Last Indicated Resolved Time Rule Out COVID-19 05/11/2021 05/11/2021 05/13/2021 10:18 AM CDT Rule Out COVID-19 07/13/2021 07/13/2021 07/14/2021 3:04 PM CLOTH DYEING RANGE TENDER Rule Out COVID-19 07/18/2021 07/18/2021 07/20/2021 1:56 PM CLOTH DYEING RANGE TENDER COVID-19 07/18/2021 07/18/2021 08/08/2021 11:3 9 PM CLOTH DYEING RANGE TENDER Rule Out COVID-19 12/18/2021 12/18/2021 12/19/2021 11:34 AM CDT Rule Out COVID-19 02/24/2022 02/24/2022 02/25/2022 1:08 PM CDT Rule Out COVID-19 04/26/2022 04/26/2022 04/26/2022 6:47 AM CDT Rule Out COVID-19 05/17/2022 05/17/2022 05/17/2022 10:20 PM CLOTH DYEING RANGE TENDER Rule Out COVID-19 06/09/2022 06/09/2022 06/09/2022 9:35 AM CLOTH DYEING RANGE TENDER COVID-19 06/09/2022 06/09/2022 06/30/2022 11:4 1 PM CLOTH DYEING RANGE TENDER Rule Out COVID-19 11/10/2022 11/10/2022 11/11/2022 12:17 PM CDT Rule Out COVID-19 03/07/2023 03/07/2023 03/07/2023 1:20 PM CDT Rule Out COVID-19 12/26/2023 12/26/2023 12/26/2023 9:50 AM CDT Assessment Noted Time PHQ-9 Depression Total Score: 2 04/02/20 10:19 AM CDT documented as of this encounter Care Teams Early Head Start Director Relationship Specialty Start Date End Date Marija Edgar APRN ASSISTANT PRESS OPERATOR OFFSET PCP - General Nurse Practitioner 04/30/20 04/14/23 Esha Grimm PA-C [address] [place] [phone] PCP - General Family Medicine 05/04/23 Lita Oseguera Personal Advocate & Liaison (PAL) 02/28/20 03/27/23 Chanelle Mccann APRN CNM [address] [place] [address] Assigned OBGYN Provider 05/02/2005/09 Marija Edgar APRN ASSISTANT PRESS OPERATOR OFFSET Assigned PCP 06/08/20 04/29/23 Mynor Broussard MD [address] [facility] 500 [place] [address] Assigned Surgical Provider 06/01/20 11/28/21 Keisha Dotson MD 909 [place], [place] [address] Assigned Neuroscience Provider 06/04/20 04/01/23 Galo Burrell MD Assigned Heart and Vascular Provider 10/05/20 04/02/22 Diana Desir, [facility] [address] [place] [address] Pharmacist Pharmacist 04/17/21 Rain Galaviz PA-C [address] [place] [address] [address] [place] [address] Physician Casting And Curing Operator Dermatology 04/28/21 Summer Lara MD [address] [place] [address] Assigned OBGYN Provider 05/10/2105/23 Summer Lara MD [address] [place] [address] Assigned OBGYN Provider 05/31/21 2 Summer Lara MD [address] [place] [address] Assigned OBGYN Provider 05/24/2105/30 Tavia Wyatt MD [address] [place] [address] Dermatology 07/14/21 Johnny Murillo MD [address] [place] [address] Assigned Musculoskeletal Provider 08/30/21 03/17/22 Erica Farrell APRN ASSISTANT PRESS OPERATOR OFFSET [address] [place] [address] Nurse Practitioner Cardiovascular Disease 09/09/21 Teresita Bean, [facility] [address] [facility] [place] [address] Pharmacist Pharmacist 09/24/21 09/29/21 Tavia Wyatt MD Assigned Surgical Provider 11/29/21 05/07/22 [facility] [address] [place] [address] Assigned MTM Pharmacist 01/02/22 Rich Barrett MD 516 [facility] [address] [place], [place] [address] Physician Ophthalmology 01/21/22 Neil Kent MD 500 [place], [place] 556465 Dermatology 02/24/22 Roney Story DPM [address] [facility] [address] [place] [address] Assigned Musculoskeletal Provider 03/20/22 08/13/22 Erica Farrell APRN ASSISTANT PRESS OPERATOR OFFSET 1700 [place] [address] Assigned Heart and Vascular Provider 04/03/22 04/16/22 Diana Desir, [facility] [address] [place] [address] Assigned MTM Pharmacist 04/07/22 Jelena David OD [address] [facility] [place] [address] Assigned Surgical Provider 05/08/22 10/08/22 Galo Burrell MD Assigned Heart and Vascular Provider 04/17/22 06/11/22 Livan Sharif MD [address] [place] [address] Cardiovascular Disease 05/14/22 Livan Sharif MD [address] [place] [address] Assigned Heart and Vascular Provider 06/12/22 07/23/22 Catherine Cm MD [address] [place], [place] [address] Cardiovascular Disease 07/21/22 Valery Veronica PAUcheC 909 [place] [address] Physician Casting And Curing Operator Dermatology 07/21/22 Catherine Cm MD [address] [place] [address] Assigned Heart and Vascular Provider 07/24/22 11/05/22 Johnny Murillo MD [address] [address] Assigned Musculoskeletal Provider 08/14/22 10/08/22 Brea Quinn APRN ASSISTANT PRESS OPERATOR OFFSET 500 [place], [place] 6[address] Nurse Practitioner Dermatology 09/21/22 Brea Quinn APRN ASSISTANT PRESS OPERATOR OFFSET 6401 [place] [address] Assigned Surgical Provider 10/09/22 [place] [address] [address] [address] Assigned Musculoskeletal Provider 10/09/22 Livan Sharif MD [address] [facility] [address] [place], [place] 9[address]15 Assigned Heart and Vascular Provider 11/06/22 11/12/22 Catherine Cm MD [address] [facility] [address] [place], [place] 8[address] Assigned Heart and Vascular Provider 11/13/22 05/27/23 Sydnie Martinez RN Personal Advocate & Liaison (PAL) Family Medicine 03/28/23 07/31/23 Alfonso Renteria MD 5775 [facility] 200 [place] [address] Assigned Neuroscience Provider 04/02/23 Cheng Todd PA-C [address] [place] [address] [phone] Assigned PCP 04/30/23 07/15/23 Radha Lomeli APRN ASSISTANT PRESS OPERATOR OFFSET [address] [facility] [address] [place] [address] Assigned Heart and Vascular Provider 05/28/23 Jelena David OD [address] [facility] [place] [address] MD Ophthalmology 06/15/23 Pao Joseph, VJ Personal Advocate & Liaison (PAL) Nurse 08/01/23 11/07/23 Esha Grimm PA-C [address] [place] [address] Assigned PCP 07/16/23 Valery Veronica PA-C [address] [place] [address] 283415 Physician Casting And Curing Operator Dermatology 09/19/23 Rey Tay MD [address] [place] [address] 850275 Gastroenterology 09/20/23 Rocky Zepeda DO [address] [place] [address] 840165 Physician Gastroenterology 09/20/23 Philip Dumont MD [address] [place] [address] Physician Ophthalmology 09/22/23 Meredith Carrera PA-C 909 [place] [address] Assigned Gastroenterology Provider 11/01/23 Neil Kent MD [address] [address] MD Dermatology 11/02/23 [place] [address] [place], [place] 8[address] Neurological Surgery 12/26/23 documented as of this encounter
--- OUTSIDE RECORDS SUMMARY | 2024-02-12 05:52 | XMS_ITS | Encounter Summary ---
Author Organization [place] Address [address] [place] [address] Care Team Providers Care Manager Merchandise Name Role Phone Lita Oseguera Unavailable Unavailable Marija Edgar APRN FIXTURE RELAMPER Primary Care Provider Chanelle Gutierrez APRN CN Unavailab le Marija Edgar APRN FIXTURE RELAMPER Unavailable Unavail able Mynor Broussard MD Unavailable [phone] Keisha Dotson MD Unavailable Galo Burrell MD Unavailable Unavailable Diana Desir [facility] Unavailable Rain Galaviz PA-C Unavailable [phone] Summer Lara MD Unavailable [phone] Summer Lara MD Unavailable [phone] Summer Lara MD Unavailable [phone] Tavia Wyatt MD Unavailable Unavailable Johnny Murillo MD Unavailable Erica Farrell APRN FIXTURE RELAMPER Unavailable Teresita Bean [facility] Unavailable [phone] Tavia Wyatt MD Unavailable Unavailable Diana Desir [facility] Unavailable Rich Barrett MD Unavailable [phone] Neil Kent MD Unavailable Roney Story DPM Unavailable Erica Farrell NURSING HOME PHYSICIAN FIXTURE RELAMPER Unavailable ThangDiana [facility] Unavailable Jelena David OD Unavailable Galo Burrell MD Unavailable Unavailable HoLivan MD Unavailable Livan Sharif MD Unavailable Catherine Cm MD Unavailable + Valery Veronica PA-C Unavailable [phone] Catherine Cm MD Unavailable + Johnny Murillo MD Unavailable [phone] Brea Quinn NURSING HOME PHYSICIAN FIXTURE RELAMPER Unavailable [phone] Brea Quinn NURSING HOME PHYSICIAN FIXTURE RELAMPER Unavailable [phone] Jose Francisco Johnson MD Unavailable Livan Sharif MD Unavailable IsCatherine hobbs MD Unavailable + Sydnie Martinez RN Unavailable Unavailable Alfonso Renteria MD Unavailable Esha Grimm-C Primary Care Provider Cheng Todd PA-C Unavailable Radha Lomeli NURSING HOME PHYSICIAN FIXTURE RELAMPER Unavailable Jelena David OD Unavailable Pao Joseph RN Unavailable Unavailable Esha Grimm-C Unavailable [phone] Valery Veronica PA-C Unavailable Rey Tay MD Unavailable Rocky Zepeda DO Unavailable Philip Dumont MD Unavailable [phone] Meredith Carrera PA-C Unavailable [phone] Neil Kent MD Unavailable Juan Pablo Emmanuel MD Unavailable [phone] Encounter Details Date Type Department Care Team (Late st Contact Info) Description 04/17/2021 MyC Medical Advice [address] [address] Marija Edgar APRN CNP Social [...] week 08/07/2020 How often do you attend memorial healthcare or worship services? More than 4 times [...] Date Recorded PHQ-2 Score 0 04/02/2021 [facility] of Occupat ional [facility] - Occupational Stress Questionnaire Answer Date Recorded [...] in a long-term (including now)? No 08/11/2020 [place] Depression Scale Answer Date Recorded [place] Depression Score 5 01/14/2021 Last EPDS Self [...] Description 02/14/2024 12:50 PM CDT Therapy Visit [facility] [address] [address] Rustam Medina, PT [facility] [address] [place] [address] 03/06/2024 3:00 PM CDT Office Visit [facility] [place] [address] [facility] [address] [place] [address] Radha Lomeli APRN FIXTURE RELAMPER [address] [place] [address] 03/07/2024 9:00 AM CDT Hospital Encounter [facility] 909 [facility] 5th [place] [address] Rocky Zepeda DO 500 [place] [address] 03/07/2024 9:00 AM CDT - 03/07/2024 9:30 AM CDT Surgery [facility] [address] [facility] [address] 5th [place] [phone] Rocky Zepeda DO 500 [place] [address] Esophagoscopy, gastroscopy, duodenoscopy (EGD), combined 06/21/2024 2:00 PM MANAGER ECOMMERCE Office Visit [facility] [place] [address] [place] [address], [address] [place] [phone] [place] [address] [place] [place], [place] [phone] Johnny Penn MD [address] [place], [place] [phone] Scheduled Procedures Name Priority Associated Diagnoses Date/Ti ar ESOPHAGOGASTRODUODENOSCOPY Eosinophilic esophagitis Esophageal dysphagia 03/07/2024 9:00 AM CDT documented as of this encounter Visit Diagnoses Not on filedocumented in this encounter Additional Health Concerns Infection Onset Date Last Indicated Resolved Time Rule Out COVID-19 05/11/2021 05/11/2021 05/13/2021 10:18 AM CDT Rule Out COVID-19 07/13/2021 07/13/2021 07/14/2021 3:04 PM MANAGER ECOMMERCE Rule Out COVID-19 07/18/2021 07/18/2021 07/20/2021 1:56 PM MANAGER ECOMMERCE COVID-19 07/18/2021 07/18/2021 08/08/2021 11:3 9 PM MANAGER ECOMMERCE Rule Out COVID-19 12/18/2021 12/18/2021 12/19/2021 11:34 AM CDT Rule Out COVID-19 02/24/2022 02/24/2022 02/25/2022 1:08 PM CDT Rule Out COVID-19 04/26/2022 04/26/2022 04/26/2022 6:47 AM CDT Rule Out COVID-19 05/17/2022 05/17/2022 05/17/2022 10:20 PM MANAGER ECOMMERCE Rule Out COVID-19 06/09/2022 06/09/2022 06/09/2022 9:35 AM MANAGER ECOMMERCE COVID-19 06/09/2022 06/09/2022 06/30/2022 11:4 1 PM MANAGER ECOMMERCE Rule Out COVID-19 11/10/2022 11/10/2022 11/11/2022 12:17 PM CDT Rule Out COVID-19 03/07/2023 03/07/2023 03/07/2023 1:20 PM CDT Rule Out COVID-19 12/26/2023 12/26/2023 12/26/2023 9:50 AM CDT Assessment Noted Time PHQ-9 Depression Total Score: 2 04/02/20 10:19 AM CDT documented as of this encounter Care Teams Manager Merchandise Relationship Specialty Start Date End Date Marija Edgar APRN FIXTURE RELAMPER PCP - General Nurse Practitioner 04/30/20 04/14/23 Esha Grimm PA-C [address] [place] [phone] PCP - General Family Medicine 05/04/23 Lita Oseguera Personal Advocate & Liaison (PAL) 02/28/20 03/27/23 Chanelle Mccann APRN CNM [address] [place] [address] Assigned OBGYN Provider 05/02/2005/09 Marija Edgar APRN FIXTURE RELAMPER Assigned PCP 06/08/20 04/29/23 Mynor Broussard MD 6363 [facility] 500 [place] 33[address]65 Assigned Surgical Provider 06/01/20 11/28/21 Keisha Dotson MD 909 [place], [place] [address]77[address] Assigned Neuroscience Provider 06/04/20 04/01/23 Galo Burrell MD Assigned Heart and Vascular Provider 10/05/20 04/02/22 Diana Desir, [facility] 3033 [place] [address] Pharmacist Pharmacist 04/17/21 Rain Galaviz PA-C [address] [place] [address] [address] [place] [address] Physician Oncology Social Worker Dermatology 04/28/21 Summer Lara MD [address] [place] [address] 435024 Assigned OBGYN Provider 05/10/2105/23 Summer Lara MD [address] [place] [address] Assigned OBGYN Provider 05/31/21 2 Summer Lara MD [address] [place] [address] Assigned OBGYN Provider 05/24/2105/30 Tavia Wyatt MD [address] [place] [address] Dermatology 07/14/21 Johnny Murillo MD [address] [place] [address] Assigned Musculoskeletal Provider 08/30/21 03/17/22 Erica Farrell APRN FIXTURE RELAMPER [address] [place] [address] Nurse Practitioner Cardiovascular Disease 09/09/21 Teresita Bean, [facility] [address] [facility] [place] [address] Pharmacist Pharmacist 09/24/21 09/29/21 Tavia Wyatt MD Assigned Surgical Provider 11/29/21 05/07/22 [facility] 3033 [place] [address] Assigned MTM Pharmacist 01/02/22 Rich Barrett MD 516 [facility] 9A [place], [place] [address] Physician Ophthalmology 01/21/22 Neil Kent MD 500 [place], [place] 537685 Dermatology 02/24/22 Roney Story DPM [address] [facility] [address] [place] [address] Assigned Musculoskeletal Provider 03/20/22 08/13/22 Erica Farrell APRN FIXTURE RELAMPER 1700 [place] [address] Assigned Heart and Vascular Provider 04/03/22 04/16/22 Diana Desir, [facility] 3033 [place] [address] Assigned MTM Pharmacist 04/07/22 [place] David [place] [address] [facility] [place] [address] Assigned Surgical Provider 05/08/22 10/08/22 Galo Burrell MD Assigned Heart and Vascular Provider 04/17/22 06/11/22 Livan Sharif MD [address] [place] [address] Cardiovascular Disease 05/14/22 Livan Sharif MD [address] [place] [address] Assigned Heart and Vascular Provider 06/12/22 07/23/22 Catherine Cm MD [address] [place], [place] 26[address] Cardiovascular Disease 07/21/22 Valery Veronica PA-C 909 [place] [address] Physician Oncology Social Worker Dermatology 07/21/22 Catherine Cm MD [address] [place] [address] Assigned Heart and Vascular Provider 07/24/22 11/05/22 Johnny Murillo MD [address] [address] Assigned Musculoskeletal Provider 08/14/22 10/08/22 Brea Quinn APRN FIXTURE RELAMPER 500 [place] [address] Nurse Practitioner Dermatology 09/21/22 Brea Quinn APRN FIXTURE RELAMPER 6401 [place] [address] Assigned Surgical Provider 10/09/22 [place] [address] [address] [facility] 300 [place] [address] Assigned Musculoskeletal Provider 10/09/22 Livan Sharif MD [address], [facility] [address] [place], [place] 12[address] Assigned Heart and Vascular Provider 11/06/22 11/12/22 Catherine Cm MD [address] [facility] [address] [place], [place] [address] Assigned Heart and Vascular Provider 11/13/22 05/27/23 Sydnie Martinez RN Personal Advocate & Liaison (PAL) Family Medicine 03/28/23 07/31/23 Alfonso Renteria MD [address] [facility] 200 [place] [address] Assigned Neuroscience Provider 04/02/23 Cheng Todd PA-C [address] [place] [address] Assigned PCP 04/30/23 07/15/23 Radha Lomeli APRN FIXTURE RELAMPER 6405 [facility] [address] [place] [address] Assigned Heart and Vascular Provider 05/28/23 [place]elena David OD [address] [facility] [place] [address] Ophthalmology 06/15/23 Pao Joseph, VJ Personal Advocate & Liaison (PAL) Nurse 08/01/23 11/07/23 Esha Grimm PA-C [address] [place] [address] Assigned PCP 07/16/23 Valery Veronica PA-C [address] [place] [address]505 Physician Oncology Social Worker Dermatology 09/19/23 Rey Tay MD [address] [place] [address] 089315 Gastroenterology 09/20/23 Rocky Zepeda DO [address] [place] [address] 367125 Physician Gastroenterology 09/20/23 Philip Dumont MD [address] [place] [address] Physician Ophthalmology 09/22/23 Meredith Carrera PA-C 909 [place] [address] Assigned Gastroenterology Provider 11/01/23 Neil Kent MD [address] [address] MD Dermatology 11/02/23 [place] [address] [place], [place] 88[address] Neurological Surgery 12/26/23 documented as of this encounter
--- OUTSIDE RECORDS SUMMARY | 2024-02-12 05:52 | XMS_ITS | Encounter Summary ---
Author Organization [place] Address [address] [place] [address] Care Team Providers Care Cavity Pump Operator Name Role Phone Lita Oseguera Unavailable Unavailable Marija Edgar APRN EMPLOYEE BENEFITS DIRECTOR Primary Care Provider U Marija Bella APRN EMPLOYEE BENEFITS DIRECTOR Unavailable Unavail able Mynor Broussard MD Unavailable [phone] Keisha Dotson MD Unavailable Galo Burrell MD Unavailable Unavailable Diana Desir [facility] Unavailable Rain Galaviz PA-C Unavailable Summer Lara MD Unavailable [phone] Tavia Wyatt MD Unavailable Unavailable Johnny Murillo MD Unavailable Erica Farrell APRN EMPLOYEE BENEFITS DIRECTOR Unavailable Teresita Bean [facility] Unavailable [phone] Tavia Wyatt MD Unavailable Unavailable Diana Desir [facility] Unavailable [phone] Rich Barrett MD Unavailable Neil Kent MD Unavailable Roney Story DPM Unavailable [phone] Erica Farrell APRN EMPLOYEE BENEFITS DIRECTOR Unavailable + Diana Desir [facility] Unavailable Jelena David OD Unavailable Galo Burrell MD Unavailable Unavailable Livan Sharif MD Unavailable Livan Sharif MD Unavailable IsCatherine hobbs MD Unavailable + Valery Veronica PA-C Unavailable [phone] Catherine Cm MD Unavailable + Johnny Murillo MD Unavailable [phone] Brea Quinn [employer] EMPLOYEE BENEFITS DIRECTOR Unavailable [phone] Brea Quinn [employer] B[employer]NER [employer]ACHINE EMPLOYEE BENEFITS DIRECTOR Unavailable [phone] Jose Francisco Johnson MD Unavailable Livan Sharif MD Unavailable + IsCatherine hobbs MD Unavailable + Sydnie Martinez RN Unavailable Unavailable Alfonso Renteria MD Unavailable Esha Grimm PA-C Primary Care Provider Cheng Todd PA-C Unavailable Radha Lomeli [employer] B[employer]ACHINE EMPLOYEE BENEFITS DIRECTOR Unavailable [phone] Jelena David OD Unavailable [phone] Pao Joseph RN Unavailable Unavailable Esha Grimm-C Unavailable [phone] Valery Veronica PA-C Unavailable [phone] Rey Tay MD Unavailable Rocky Zepeda DO Unavailable Philip Dumont MD Unavailable [phone] Meredith Carrera PA-C Unavailable Neil Kent MD Unavailable Juan Pablo Emmanuel MD Unavailable Encounter Details Date Type Department Care Team (Late st Contact Info) Description 06/25/2021 MyC Medical Advice [address] [address] Diana Desir, [facility] [address] [place] [address] Psoriasis (Primary Dx) Social History Tobacco Use [...] do you attend chur or sabianism services? More than 4 times [...] Answer Date Recorded PHQ-2 Score 0 04/02/2021 [facility] - Occupational [...] a senior living (including now)? No 08/11/2020 [place] Depression Scale Answer Date Recorded [place] Depression Score 5 01/14/2021 Last EPDS Self [...] COVID-19? No / Unsure 06/26/2021 8:28 AM ROD MILL TENDER documented as of this encounter Miscellaneous Notes * Telephone Encounter - Diana Desir RP - 06/26/2021 9:53 AM CST Discussed with PCP and verbal approval for betamethasone cream. Diana Desir, PharmD Medication Therapy Management Provider, [facility] Pager: [phone] MILL TENDER documented in this encounter Plan of Treatment Upcoming Encounters Date Type Department Care Team (Latest Contact Info) Description 02/14/2024 12:50 PM CDT Therapy Visit [facility] [address] [phone] Rustam Medina, PT [facility] [id number] [place] [address] 03/06/2024 3:00 PM CDT Office Visit [facility] [address] [place] [address] [address] [place] [address] Lomeli, Radha E, GROUP BURNER MACHINE EMPLOYEE BENEFITS DIRECTOR [address] [place] [address] 03/07/2024 9:00 AM CDT Hospital Encounter [facility] OR [address] [place] [phone] Rocky Zepeda DO [address] [place], [place] [address] 03/07/2024 9:00 AM CDT - 03/07/2024 9:30 AM CDT Surgery [facility] OR [address] [place] [phone] Rocky Zepeda DO [address] [place], [place] [id number] Esophagoscopy, gastroscopy, duodenoscopy (EGD), combined 06/21/2024 2:00 PM ROD MILL TENDER Office Visit [facility] [place] [address] [place] [address], [address] [place] [phone] [place] [address] [place] [address] 026707 Johnny Penn MD [address] [place] [place] 149005 Scheduled Procedures Name Priority Associated Diagnoses Date/Ti mt ESOPHAGOGASTRODUODENOSCOPY Eosinophilic esophagitis Esophageal dysphagia 03/07/2024 9:00 AM CDT documented as of this encounter Visit Diagnoses Diagnosis Psoriasis- Primary Other psoriasis Eosinophilic esophagitis Esophageal dysphagia Dysphagia, pharyngoesophageal phase documented in this encounter Additional Health Concerns Infection Onset Date Last Indicated Resolved Time Rule Out COVID-19 07/13/2021 07/13/2021 07/14/2021 3:04 PM ROD MILL TENDER Rule Out COVID-19 07/18/2021 07/18/2021 07/20/2021 1:56 PM ROD MILL TENDER COVID-19 07/18/2021 07/18/2021 08/08/2021 11:3 9 PM ROD MILL TENDER Rule Out COVID-19 12/18/2021 12/18/2021 12/19/2021 11:34 AM CDT Rule Out COVID-19 02/24/2022 02/24/2022 02/25/2022 1:08 PM CDT Rule Out COVID-19 04/26/2022 04/26/2022 04/26/2022 6:47 AM CDT Rule Out COVID-19 05/17/2022 05/17/2022 05/17/2022 10:20 PM ROD MILL TENDER Rule Out COVID-19 06/09/2022 06/09/2022 06/09/2022 9:35 AM ROD MILL TENDER COVID-19 06/09/2022 06/09/2022 06/30/2022 11:4 1 PM ROD MILL TENDER Rule Out COVID-19 11/10/2022 11/10/2022 11/11/2022 12:17 PM CDT Rule Out COVID-19 03/07/2023 03/07/2023 03/07/2023 1:20 PM CDT Rule Out COVID-19 12/26/2023 12/26/2023 12/26/2023 9:50 AM CDT Assessment Noted Time PHQ-9 Depression Total Score: 2 04/02/20 21 10:19 AM CDT documented as of this encounter Care Teams Cavity Pump Operator Relationship Specialty Start Date End Date Marija Edgra APRN EMPLOYEE BENEFITS DIRECTOR PCP - General Nurse Practitioner 04/30/20 04/14/23 Esha Grimm PA-C [address] [place] [address] PCP - General Family Medicine 05/04/23 Lita Oseguera Personal Advocate & Liaison (PAL) 02/28/20 03/27/23 Marija Edgar APRN EMPLOYEE BENEFITS DIRECTOR Assigned PCP 06/08/20 04/29/23 Mynor Broussard MD [address] [facility] [facility] [address] [place] [address] Assigned Surgical Provider 06/01/20 11/28/21 Keisha Dotson MD [address] [place] [address] Assigned Neuroscience Provider 06/04/20 04/01/23 Galo Burrell MD Assigned Heart and Vascular Provider 10/05/20 04/02/22 [facility] [address] [place] [address] Pharmacist Pharmacist 04/17/21 Rain Galaviz PA-C [address] [place] [address] Physician Renewable Energy Project Manager Dermatology 04/28/21 Summer Lara MD [address] [place] [address] Assigned OBGYN Provider 05/31/21 2 Tavia Wyatt MD [address] [place] [address] Dermatology 07/14/21 Johnny Murillo MD [address] [place] [address] Assigned Musculoskeletal Provider 08/30/21 03/17/22 Erica Farrell APRN EMPLOYEE BENEFITS DIRECTOR [address] [facility] [facility] [address] [place] [address] Nurse Practitioner Cardiovascular Disease 09/09/21 Teresita Bean [facility] [address] [place] [address] Pharmacist Pharmacist 09/24/21 09/29/21 Tavia Wyatt MD Assigned Surgical Provider 11/29/21 05/07/22 [facility] [address] [place] [address] Assigned MTM Pharmacist 01/02/22 Rich Barrett MD [address] [address] Physician Ophthalmology 01/21/22 Neil Kent MD 500 [place], [place] [address] Dermatology 02/24/22 Roney Story DPM [address] [facility] [address] [place] [address] Assigned Musculoskeletal Provider 03/20/22 08/13/22 Erica Farrell APRN EMPLOYEE BENEFITS DIRECTOR 1700 [place] [address] Assigned Heart and Vascular Provider 04/03/22 04/16/22 [facility] [address] [place] [address] Assigned MTM Pharmacist 04/07/22 Jelena David OD [address] [facility] [place] [address] Assigned Surgical Provider 05/08/22 10/08/22 Galo Burrell MD Assigned Heart and Vascular Provider 04/17/22 06/11/22 Livan Sharif MD [address] [place] [address] Cardiovascular Disease 05/14/22 Livan Sharif MD [address] [place] [address] Assigned Heart and Vascular Provider 06/12/22 07/23/22 Catherine Cm MD [address] [facility] [address] [place] [address] Cardiovascular Disease 07/21/22 Valery Veronica, PA-C [address] [place] [address] Physician Renewable Energy Project Manager Dermatology 07/21/22 Catherine Cm MD [address] [place] [address] Assigned Heart and Vascular Provider 07/24/22 11/05/22 Johnny Murillo MD [facility] [address] [address] Assigned Musculoskeletal Provider 08/14/22 10/08/22 Brea Quinn APRN EMPLOYEE BENEFITS DIRECTOR 500 [place] [address] Nurse Practitioner Dermatology 09/21/22 Brea Quinn APRN EMPLOYEE BENEFITS DIRECTOR 64[address] [facility] [place] [address] Assigned Surgical Provider 10/09/22 [place] [address] [facility] [address] [place] [address] Assigned Musculoskeletal Provider 10/09/22 Livan Sharif MD [address], [facility] [address] [place] [address] Assigned Heart and Vascular Provider 11/06/22 11/12/22 Catherine mC MD [address] [facility] [address] [facility] [address] [place] [address] Assigned Heart and Vascular Provider 11/13/22 05/27/23 Sydnie Martinez, RN Personal Advocate & Liaison (PAL) Family Medicine 03/28/23 07/31/23 Alfonso Renteria MD 57[address] [facility] 200 [place] [address] Assigned Neuroscience Provider 04/02/23 Cheng Todd PA-C [address] [place] [address] Assigned PCP 04/30/23 07/15/23 Radha Lomeli APRN EMPLOYEE BENEFITS DIRECTOR [address] [place] 168565 Assigned Heart and Vascular Provider 05/28/23 Jelena David OD [address] [facility] [place] [address] MD Ophthalmology 06/15/23 Pao Joseph, RN Personal Advocate & Liaison (PAL) Nurse 08/01/23 11/07/23 Esha Grimm PA-C [address] [place] [address] Assigned PCP 07/16/23 Valery Veronica PA-C [address] [place] [address] 574935 Physician Renewable Energy Project Manager Dermatology 09/19/23 Rey Tay MD [address] [place] [address] Gastroenterology 09/20/23 Rocky Zepeda DO [address] [place] [address] 564585 Physician Gastroenterology 09/20/23 Philip Dumont MD [address] [place] [address] 967865 Physician Ophthalmology 09/22/23 Meredith Carrera PA-C [address] [place] [address] 919875 Assigned Gastroenterology Provider 11/01/23 Neil Kent MD [address] [address]164[address] Dermatology 11/02/23 [place] [address] [place] [address] Neurological Surgery 12/26/23 documented as of this encounter
--- OUTSIDE RECORDS SUMMARY | 2024-02-12 05:52 | XMS_ITS | Encounter Summary ---
Author Organization [place] Address [address] [place] [address] Care Team Providers Care Brazer Helper Induction Name Role Phone Lita Oseguera Unavailable Unavailable Marija Edgar APRN WAFFLE MACHINE OPERATOR Primary Care Provider U Marija Bella APRN WAFFLE MACHINE OPERATOR Unavailable Unavail able Mynor Broussard MD Unavailable [phone] Keisha Dotson MD Unavailable Galo Burrell MD Unavailable Unavailable Diana Desir [facility] Unavailable Rain Galaviz PA-C Unavailable Summer Lara MD Unavailable [phone] Tavia Wyatt MD Unavailable Unavailable Johnny Murillo MD Unavailable Erica Farrell APRN WAFFLE MACHINE OPERATOR Unavailable Teresita Bean [facility] Unavailable Tavia Wyatt MD Unavailable Unavailable Diana Desir [facility] Unavailable [phone] Rich Barrett MD Unavailable Neil Kent MD Unavailable Roney Story DPM Unavailable [phone] Erica Farrell APRN WAFFLE MACHINE OPERATOR Unavailable + Diana Desir [facility] Unavailable Jelena David OD Unavailable Galo Burrell MD Unavailable Unavailable Livan Sharif MD Unavailable Livan Sharif MD Unavailable IsCatherine hobbs MD Unavailable + Valery Veronica PA-C Unavailable [phone] Catherine Cm MD Unavailable + Johnny Murillo MD Unavailable [phone] Brea Quinn DRUPAL DEVELOPER WAFFLE MACHINE OPERATOR Unavailable [phone] Brea Quinn DRUPAL DEVELOPER WAFFLE MACHINE OPERATOR Unavailable [phone] Jose Francisco Johnson MD Unavailable Livan Sharif MD Unavailable + IsCatherine hobbs MD Unavailable + Sydnie Martinez RN Unavailable Unavailable Alfonso Renteria MD Unavailable Esha Grimm PA-C Primary Care Provider Cheng Todd PA-C Unavailable Radha Lomeli DRUPAL DEVELOPER WAFFLE MACHINE OPERATOR Unavailable [phone] Jelena David OD Unavailable [phone] Pao Joseph RN Unavailable Unavailable Esha Grimm-C Unavailable [phone] Valery Veronica PA-C Unavailable [phone] Rey Tay MD Unavailable Rocky Zepeda DO Unavailable Philip Dumont MD Unavailable [phone] Meredith Carrera PA-C Unavailable Neil Kent MD Unavailable Juan Pablo Emmanuel MD Unavailable Encounter Details Date Type Department Care Team (Late st Contact Info) Description 06/03/2021 MyC Medical Advice [address] [address] Diana Desir, [facility] [address] [place] [address] Social History Tobacco Use Types Packs/Day Years [...] you attend chur ch or taoism services? More than 4 times [...] Answer Date Recorded PHQ-2 Score 0 04/02/2021 [facility] - [...] in a retirement (including now)? No 08/11/2020 [place] Depression Scale Answer Date Recorded [place] Depression Score 5 01/14/2021 Last EPDS [...] Description 02/14/2024 12:50 PM CDT Therapy Visit [facility] [address] [phone] Rustam Medina, PT [facility] [address] [place] [address] 03/06/2024 3:00 PM CDT Office Visit [facility] [place] [address] [facility] [address] [place] [phone] Radha Lomeli APRN WAFFLE MACHINE OPERATOR [address] [place], [place] [address] 03/07/2024 9:00 AM CDT Hospital Encounter [facility] [address] [facility] [address] 5th [place] [address] Rocky Zepeda DO 500 [place] [address] 03/07/2024 9:00 AM CDT - 03/07/2024 9:30 AM CDT Surgery [facility] [address] [facility] [address] 5th [place] [phone] Rocky Zepeda, DO [address] [place], [place] 6[address] Esophagoscopy, gastroscopy, duodenoscopy (EGD), combined 06/21/2024 2:00 PM HOSPITAL CLINIC ASSISTANT Office Visit [facility] [place] [address] [facility], [address] [place] [address] [place] [address] [place] [address] Johnny Penn MD [address] [facility] [place] [address] Scheduled Procedures Name Priority Associated Diagnoses Date/Ti wi ESOPHAGOGASTRODUODENOSCOPY Eosinophilic esophagitis Esophageal dysphagia 03/07/2024 9:00 AM CDT documented as of this encounter Visit Diagnoses Not on filedocumented in this encounter Additional Health Concerns Infection Onset Date Last Indicated Resolved Time Rule Out COVID-19 07/13/2021 07/13/2021 07/14/2021 3:04 PM HOSPITAL CLINIC ASSISTANT Rule Out COVID-19 07/18/2021 07/18/2021 07/20/2021 1:56 PM HOSPITAL CLINIC ASSISTANT COVID-19 07/18/2021 07/18/2021 08/08/2021 11:3 9 PM HOSPITAL CLINIC ASSISTANT Rule Out COVID-19 12/18/2021 12/18/2021 12/19/2021 11:34 AM CDT Rule Out COVID-19 02/24/2022 02/24/2022 02/25/2022 1:08 PM CDT Rule Out COVID-19 04/26/2022 04/26/202204/26/2022 6:47 AM CDT Rule Out COVID-19 05/17/2022 05/17/2022 05/17/2022 10:20 PM HOSPITAL CLINIC ASSISTANT Rule Out COVID-19 06/09/2022 06/09/2022 06/09/2022 9:35 AM HOSPITAL CLINIC ASSISTANT COVID-19 06/09/2022 06/09/2022 06/30/2022 11:4 1 PM HOSPITAL CLINIC ASSISTANT Rule Out COVID-19 11/10/2022 11/10/2022 11/11/2022 12:17 PM CDT Rule Out COVID-19 03/07/2023 03/07/2023 03/07/2023 1:20 PM CDT Rule Out COVID-19 12/26/2023 12/26/2023 12/26/2023 9:50 AM CDT Assessment Noted Time PHQ-9 Depression Total Score: 2 04/02/20 10:19 AM CDT documented as of this encounter Care Teams Brazer Helper Induction Relationship Specialty Start Date End Date Marija Edgar APRN WAFFLE MACHINE OPERATOR PCP - General Nurse Practitioner 04/30/20 04/14/23 Esha Grimm PAUcheC [address] [place] [phone] PCP - General Family Medicine 05/04/23 Lita Oseguera Personal Advocate & Liaison (PAL) 02/28/20 03/27/23 Marija Edgar APRN WAFFLE MACHINE OPERATOR Assigned PCP 06/08/20 04/29/23 Mynor Broussard MD [address] [address] Assigned Surgical Provider 06/01/20 11/28/21 Keisha Dotson MD 909 [place] [address] Assigned Neuroscience Provider 06/04/20 04/01/23 Galo Burrell MD Assigned Heart and Vascular Provider 10/05/20 04/02/22 Diana Desir, [facility] [address] [place] [address] Pharmacist Pharmacist 04/17/21 Rain Galaviz PA-C [address] [place] [address] [place] [address] Physician Lithograph Operator Dermatology 04/28/21 Summer Lara MD [address] [place] [address] Assigned OBGYN Provider 05/31/21 2 Tavia Wyatt MD [address] [facility] [place] [address] Dermatology 07/14/21 Johnny Murillo MD [address] [facility] [address] [place] [address] Assigned Musculoskeletal Provider 08/30/21 03/17/22 Erica Farrell APRN WAFFLE MACHINE OPERATOR [address] [facility] [address] [place] [address] Nurse Practitioner Cardiovascular Disease 09/09/21 Teresita Bean [facility] [address] [place] [phone] Pharmacist Pharmacist 09/24/21 09/29/21 Tavia Wyatt MD Assigned Surgical Provider 11/29/21 05/07/22 [facility] [address] [place] [address] Assigned MTM Pharmacist 01/02/22 Rich Barrett MD 516 [facility] 9[address] [place], [place] [address] Physician Ophthalmology 01/21/22 Neil Kent MD 500 [place], [place] 434285 Dermatology 02/24/22 Roney Story DPM [address] [facility] [address] [place], [place] [address] Assigned Musculoskeletal Provider 03/20/22 08/13/22 Erica Farrell APRN WAFFLE MACHINE OPERATOR [address]00 [place] [address] Assigned Heart and Vascular Provider 04/03/22 04/16/22 [facility] [address] [place] [address] Assigned MTM Pharmacist 04/07/22 Jelena David OD [address] [facility] [address] Assigned Surgical Provider 05/08/22 10/08/22 Galo Burrell MD Assigned Heart and Vascular Provider 04/17/22 06/11/22 Livan Sharif MD 6[address] [facility] [address] [place] [address] Cardiovascular Disease 05/14/22 Livan Shairf MD [address] [place] 38[address]100 [place] 47[address]05 Assigned Heart and Vascular Provider 06/12/22 07/23/22 Catherine Cm MD [address] [place] 2813400 [place] [address] Cardiovascular Disease 07/21/22 Valery Veronica, PA-C [address] [place] [address] 779355 Physician Lithograph Operator Dermatology 07/21/22 Catherine Cm MD [address] [address] Assigned Heart and Vascular Provider 07/24/22 11/05/22 Johnny Murillo MD [address] [place] [address] 476674 Assigned Musculoskeletal Provider 08/14/22 10/08/22 Brea Quinn APRN WAFFLE MACHINE OPERATOR [address] [place] [address] Nurse Practitioner Dermatology 09/21/22 Brea Quinn APRN WAFFLE MACHINE OPERATOR [address] [place] [address] [place] [address] Assigned Surgical Provider 10/09/22 [place] [address] [place] [address] Assigned Musculoskeletal Provider 10/09/22 Livan Sharif MD [address] [facility] [address] [place] [address] Assigned Heart and Vascular Provider 11/06/22 11/12/22 Catherine Cm MD [address] [facility] [address] [place] [address] Assigned Heart and Vascular Provider 11/13/22 05/27/23 Sydnie Martinez RN Personal Advocate & Liaison (PAL) Family Medicine 03/28/23 07/31/23 Alfonso Renteria MD 57[address] [facility] 200 [place] [address] Assigned Neuroscience Provider 04/02/23 Cheng Todd PA-C [address] [place] [address] [phone] Assigned PCP 04/30/23 07/15/23 Radha Lomeli, ARLENE WAFFLE MACHINE OPERATOR [address] [place] [address] Assigned Heart and Vascular Provider 05/28/23 Jelena David OD [address] [place] [address] Ophthalmology 06/15/23 Pao Joseph RN Personal Advocate & Liaison (PAL) Nurse 08/01/23 11/07/23 Esha Grimm PAUcheC [address] [place] [address] Assigned PCP 07/16/23 Valery Veronica PA-C [address] [place] [address] Physician Lithograph Operator Dermatology 09/19/23 Rey Tay MD [address] [place] [address] MD Gastroenterology 09/20/23 Rocky Zepeda DO [address] [place] [address] Physician Gastroenterology 09/20/23 Philip Dumont MD [address] [place] [address] Physician Ophthalmology 09/22/23 Meredith Carrera PA-C [address] [place] [address] Assigned Gastroenterology Provider 11/01/23 Neil Kent MD [address] [address] Dermatology 11/02/23 [place] [address] [place] [address] Neurological Surgery 12/26/23 documented as of this encounter
--- OUTSIDE RECORDS SUMMARY | 2024-02-12 05:52 | XMS_ITS | Encounter Summary ---
Author Organization [facility] Address [address] [place] [address] Care Team Providers Care Retail Store Assistant Name Role Phone Lita Oseguera Unavailable Unavailable Marija Edgar APRN FACILITIES MANAGER Primary Care Provider Chanelle Gutierrez APRN CN Unavailab le Marija Edgar APRN FACILITIES MANAGER Unavailable Unavail able Mynor Broussard MD Unavailable [phone] Keisha Dotson MD Unavailable [phone] Galo Burrell MD Unavailable Unavailable Diana Desir [facility] Unavailable Rain Galaviz PA-C Unavailable Summer Lara MD Unavailable [phone] Summer Lara MD Unavailable [phone] Summer Lara MD Unavailable Tavia Wyatt MD Unavailable Unavailable Johnny Murillo MD Unavailable Erica Farrell APRN FACILITIES MANAGER Unavailable Teresita Bean [facility] Unavailable Tavia Wyatt MD Unavailable Unavailable Diana Desir [facility] Unavailable Rich Barrett MD Unavailable [phone] Neil Kent MD Unavailable Roney Story DPM Unavailable Erica Farrell DATA CONVERSION OPERATOR FACILITIES MANAGER Unavailable ThangDiana [facility] Unavailable Jelena David OD Unavailable Galo Burrell MD Unavailable Unavailable HoLivan MD Unavailable Livan Sharif MD Unavailable Catherine Cm MD Unavailable + Valery Veronica PA-C Unavailable [phone] Catherine Cm MD Unavailable + Johnny Murillo MD Unavailable [phone] Brea Quinn DATA CONVERSION OPERATOR FACILITIES MANAGER Unavailable [phone] Brea Quinn DATA CONVERSION OPERATOR FACILITIES MANAGER Unavailable [phone] Jose Francisco Johnson MD Unavailable Livan Sharif MD Unavailable IsCatherine hobbs MD Unavailable + Sydnie Martinez RN Unavailable Unavailable Alfonso Renteria MD Unavailable Esha Grimm-C Primary Care Provider Cheng Todd PA-C Unavailable Radha Lomeli DATA CONVERSION OPERATOR FACILITIES MANAGER Unavailable Jelena David OD Unavailable Pao Joseph RN Unavailable Unavailable Esha Grimm-C Unavailable [phone] Valery Veronica PA-C Unavailable Rey Tay MD Unavailable Rocky Zepeda DO Unavailable Philip Dumont MD Unavailable [phone] Meredith Carrera PA-C Unavailable [phone] Neil Kent MD Unavailable Juan Pablo Emmanuel MD Unavailable [phone] Encounter Details Date Type Department Care Team (Late st Contact Info) Description 05/05/2021 MyC Medical Advice [address] [address] Lauren Gan, RN Social History [...] 08/07/2020 How often do you attend [facility] or yarsanism services? More than 4 times per year [...] [facility] - Occupational Stress Questionnaire Answer [...] in a long-term (including now)? No 08/11/2020 [place] Depression Scale Answer Date Recorded [...] Description 02/14/2024 12:50 PM CDT Therapy Visit [facility] [address] [address] Rustam Medina, PT [facility] [id number] [place] [address] 03/06/2024 3:00 PM CDT Office Visit [facility] [place] [address] [facility] [address] [place] [address] Radha Lomeli, DATA CONVERSION OPERATOR FACILITIES MANAGER [address] [place] [address] 03/07/2024 9:00 AM CDT Hospital Encounter [address] 5th [place] [address] Rocky Zepeda DO 500 [place], [place] [address] 03/07/2024 9:00 AM CDT - 03/07/2024 9:30 AM CDT Surgery [facility] [address] [facility] [address] 5th [place] [address] Rocky Zepeda DO 500 [place] [address] Esophagoscopy, gastroscopy, duodenoscopy (EGD), combined 06/21/2024 2:00 PM ANIMATION ARTIST Office Visit [facility] - [address], [address] [place] [address] [place] [address] [place] [address] Johnny Penn MD [address] [place], [place] [address] Scheduled Procedures Name Priority Associated Diagnoses Date/Ti ky ESOPHAGOGASTRODUODENOSCOPY Eosinophilic esophagitis Esophageal dysphagia 03/07/2024 9:00 AM CDT documented as of this encounter Visit Diagnoses Not on filedocumented in this encounter Additional Health Concerns Infection Onset Date Last Indicated Resolved Time Rule Out COVID-19 05/11/2021 05/11/2021 05/13/2021 10:18 AM CDT Rule Out COVID-19 07/13/2021 07/13/2021 07/14/2021 3:04 PM ANIMATION ARTIST Rule Out COVID-19 07/18/2021 07/18/2021 07/20/2021 1:56 PM ANIMATION ARTIST COVID-19 07/18/2021 07/18/2021 08/08/2021 11:3 9 PM ANIMATION ARTIST Rule Out COVID-19 12/18/2021 12/18/202112/19/2021 11:34 AM CDT Rule Out COVID-19 02/24/2022 02/24/2022 02/25/2022 1:08 PM CDT Rule Out COVID-19 04/26/2022 04/26/2022 04/26/2022 6:47 AM CDT Rule Out COVID-19 05/17/2022 05/17/2022 05/17/2022 10:20 PM ANIMATION ARTIST Rule Out COVID-19 06/09/2022 06/09/2022 06/09/2022 9:35 AM ANIMATION ARTIST COVID-19 06/09/2022 06/09/2022 06/30/2022 11:4 1 PM ANIMATION ARTIST Rule Out COVID-19 11/10/2022 11/10/2022 11/11/2022 12:17 PM CDT Rule Out COVID-19 03/07/2023 03/07/2023 03/07/2023 1:20 PM CDT Rule Out COVID-19 12/26/2023 12/26/2023 12/26/2023 9:50 AM CDT Assessment Noted Time PHQ-9 Depression Total Score: 2 04/02/20 10:19 AM CDT documented as of this encounter Care Teams Retail Store Assistant Relationship Specialty Start Date End Date Marija Edgar APRN FACILITIES MANAGER PCP - General Nurse Practitioner 04/30/20 04/14/23 Esha Grimm PA-C [address] [place] [address] PCP - General Family Medicine 05/04/23 Lita Oseguera Personal Advocate & Liaison (PAL) 02/28/20 03/27/23 Chanelle Mccann APRN CNM [address] [address] Assigned OBGYN Provider 05/02/2005/09 Marija Edgar APRN FACILITIES MANAGER Assigned PCP 06/08/20 04/29/23 Mynor Broussard MD [address] [facility] [address] 500 [place] [address] Assigned Surgical Provider 06/01/20 11/28/21 Keisha Dotson MD 909 [place], [place] [address]36155 Assigned Neuroscience Provider 06/04/20 04/01/23 Galo Burrell MD Assigned Heart and Vascular Provider 10/05/20 04/02/22 Diana Desir, [facility] [address] [place] [address] Pharmacist Pharmacist 04/17/21 Rain Galaviz PA-C [address] [facility] [address] [place] [address] Physician Continuous Improvement Lead Dermatology 04/28/21 Summer Lara MD [address] [facility] [place] [address] Assigned OBGYN Provider 05/10/2105/23 Summer Lara MD [address] [facility] [place] [place] [address] Assigned OBGYN Provider 05/31/21 2 Summer Lara MD [address] [facility] [place] [address] Assigned OBGYN Provider 05/24/2105/30 Tavia Wyatt MD [address] [place] [address] Dermatology 07/14/21 Johnny Murillo MD [address] [place] [address] Assigned Musculoskeletal Provider 08/30/21 03/17/22 Erica Farrell APRN FACILITIES MANAGER [address] [facility] [address] [place] [address] Nurse Practitioner Cardiovascular Disease 09/09/21 Teresita Bean, [facility] [address] [facility] [address] [place], [place] [phone] Pharmacist Pharmacist 09/24/21 09/29/21 Tavia Wyatt MD Assigned Surgical Provider 11/29/21 05/07/22 [facility] [address] [place] [address] Assigned MTM Pharmacist 01/02/22 Rich Barrett MD [address] [facility] 9A [place], [place] [address] Physician Ophthalmology 01/21/22 Neil Kent MD 500 [place], [place] [address] Dermatology 02/24/22 Roney Story DPM [address] [facility] [address] [place], [place] [address] Assigned Musculoskeletal Provider 03/20/22 08/13/22 Erica Farrell APRN FACILITIES MANAGER 1700 [place] [address] Assigned Heart and Vascular Provider 04/03/22 04/16/22 Diana Desir, [facility] 3033 [place] [address] Assigned MTM Pharmacist 04/07/22 Jelena David OD [address] [facility] [address] Assigned Surgical Provider 05/08/22 10/08/22 Galo Burrell MD Assigned Heart and Vascular Provider 04/17/22 06/11/22 Livan Sharif MD [address], [address] [place] [address] Cardiovascular Disease 05/14/22 Livan Sharif MD [address], [address] [place] [address] Assigned Heart and Vascular Provider 06/12/22 07/23/22 Catherine Cm MD [address] [place] [address] Cardiovascular Disease 07/21/22 Valery Veronica PA-C 909 [place] [address] Physician Continuous Improvement Lead Dermatology 07/21/22 Catherine Cm MD [address] [place] [address] Assigned Heart and Vascular Provider 07/24/22 11/05/22 Johnny Murillo MD [address] [facility] [address] [place] [address] Assigned Musculoskeletal Provider 08/14/22 10/08/22 Brea Quinn APRN FACILITIES MANAGER 500 [place] [address] Nurse Practitioner Dermatology 09/21/22 Brea Quinn APRN FACILITIES MANAGER 6401 [place] [address] Assigned Surgical Provider 10/09/22 [place] [address] [facility] [address] [place] [address] Assigned Musculoskeletal Provider 10/09/22 Livan Sharif MD [address] [address] [place] [address] Assigned Heart and Vascular Provider 11/06/22 11/12/22 Catherine Cm MD [address] [place], [place] [address] Assigned Heart and Vascular Provider 11/13/22 05/27/23 Sydnie Martinez RN Personal Advocate & Liaison (PAL) Family Medicine 03/28/23 07/31/23 Alfonso Renteria MD 5775 [facility] 200 [place] [address] Assigned Neuroscience Provider 04/02/23 Cheng Todd PA-C [address] [place] [address] Assigned PCP 04/30/23 07/15/23 Radha Lomeli APRN FACILITIES MANAGER 6[address] [facility] [address] [place] [address] Assigned Heart and Vascular Provider 05/28/23 Jelena David OD [address] [facility] [address] Ophthalmology 06/15/23 Pao Joseph, VJ Personal Advocate & Liaison (PAL) Nurse 08/01/23 11/07/23 Esha Grimm PA-C [address] [place] [address] Assigned PCP 07/16/23 Valery Veronica PA-C [address] [place] [address] Physician Continuous Improvement Lead Dermatology 09/19/23 Rey Tay MD [address] [place] [address] Gastroenterology 09/20/23 Rocky Zepeda DO [address] [place] [address]24[address] Physician Gastroenterology 09/20/23 Philip Dumont MD [address] [place] [address] Physician Ophthalmology 09/22/23 Meredith Carrera PA-C 9 [place] [address] Assigned Gastroenterology Provider 11/01/23 Neil Kent MD [address] [place] [address] Dermatology 11/02/23 [place] [address] [place] [address] Neurological Surgery 12/26/23 documented as of this encounter
--- OUTSIDE RECORDS SUMMARY | 2024-02-12 05:52 | XMS_ITS | Encounter Summary ---
Author Organization [facility] Address [address] [place] [address] Care Team Providers Care Senior Interactive Producer Name Role Phone Lita Oseguera Unavailable Unavailable Marija Edgar APRN TELEPHONE ADVICE NURSE Primary Care Provider Chanelle Gutierrez APRN CN Unavailab le Marija Edgar APRN TELEPHONE ADVICE NURSE Unavailable Unavail able Mynor Broussard MD Unavailable [phone] Keisha Dotson MD Unavailable Galo Burrell MD Unavailable Unavailable iDana Desir [facility] Unavailable [phone] Rain Galaviz PA-C Unavailable Summer Lara MD Unavailable Summer Lara MD Unavailable [phone] Summer Lara MD Unavailable [phone] Tavia Wyatt MD Unavailable Unavailable Johnny Murillo MD Unavailable Erica Farrell APRN TELEPHONE ADVICE NURSE Unavailable Teresita Bean [facility] Unavailable Tavia Wyatt MD Unavailable Unavailable Diana Desir [facility] Unavailable Rich Barrett MD Unavailable [phone] Neil Kent MD Unavailable Roney Story DPM Unavailable Erica Farrell INSTRUCTIONAL SUPERVISOR TELEPHONE ADVICE NURSE Unavailable ThangDiana [facility] Unavailable Jelena David OD Unavailable Galo Burrell MD Unavailable Unavailable HoLivan MD Unavailable Livan Sharif MD Unavailable Catherine Cm MD Unavailable + Valery Veronica PA-C Unavailable [phone] Catherine Cm MD Unavailable + Johnny Murillo MD Unavailable [phone] Brea Quinn INSTRUCTIONAL SUPERVISOR TELEPHONE ADVICE NURSE Unavailable [phone] Brea Quinn INSTRUCTIONAL SUPERVISOR TELEPHONE ADVICE NURSE Unavailable [phone] Jose Francisco Johnson MD Unavailable Livan Sharif MD Unavailable IsCatherine hobbs MD Unavailable + Sydnie Martinez RN Unavailable Unavailable Alfonso Renteria MD Unavailable Esha Grimm-C Primary Care Provider Cheng Todd PA-C Unavailable Radha Lomeli INSTRUCTIONAL SUPERVISOR TELEPHONE ADVICE NURSE Unavailable Jelena David OD Unavailable Pao Joseph RN Unavailable Unavailable Esha Grimm-C Unavailable [phone] Valery Veronica PA-C Unavailable Rey Tay MD Unavailable Rocky Zepeda DO Unavailable Philip Dumont MD Unavailable [phone] Meredith Carrera PA-C Unavailable [phone] Neil Kent MD Unavailable Juan Pablo Emmanuel MD Unavailable [phone] Encounter Details Date Type Department Care Team (Late st Contact Info) Description 04/28/2021 MyC Medical Advice [address] [address] Lauren Gan, RN Social History [...] week 08/07/2020 How often do you attend [facility] or yazidism services? More than 4 times per year [...] Answer Date Recorded PHQ-2 Score 0 04/02/2021 [facility] - Occupational Stress [...] in a snf (including now)? No 08/11/2020 [place] Depression Scale Answer Date Recorded [place] Depression Score 5 01/14/2021 Last EPDS Self [...] 02/14/2024 12:50 PM CDT Therapy Visit [facility] [address] [address] Rusatm Medina, PT [facility] [id number] [place] [address] 03/06/2024 3:00 PM CDT Office Visit [facility] [place] [address] [facility] [address] [place] [address] Radha Lomeli APRN TELEPHONE ADVICE NURSE [address] [place] [address] 03/07/2024 9:00 AM CDT Hospital Encounter [address] 5th [place] [address] Rocky Zepeda DO 500 [place], [place] [address] 03/07/2024 9:00 AM CDT - 03/07/2024 9:30 AM CDT Surgery [facility] [address] [facility] [address] 5th [place] [address] Rocky Zepeda DO 500 [place] [address] Esophagoscopy, gastroscopy, duodenoscopy (EGD), combined 06/21/2024 2:00 PM BRAID PATTERN SETTER Office Visit [facility] Neurology Clinics - [address], [address] [place] [address] [place] [address] [place], [place] [address] Johnny Penn MD [address] [place], [place] [address] Scheduled Procedures Name Priority Associated Diagnoses Date/Ti ak ESOPHAGOGASTRODUODENOSCOPY Eosinophilic esophagitis Esophageal dysphagia 03/07/2024 9:00 AM CDT documented as of this encounter Visit Diagnoses Not on filedocumented in this encounter Additional Health Concerns Infection Onset Date Last Indicated Resolved Time Rule Out COVID-19 05/11/2021 05/11/2021 05/13/2021 10:18 AM CDT Rule Out COVID-19 07/13/2021 07/13/2021 07/14/2021 3:04 PM BRAID PATTERN SETTER Rule Out COVID-19 07/18/2021 07/18/2021 07/20/2021 1:56 PM BRAID PATTERN SETTER COVID-19 07/18/2021 07/18/2021 08/08/2021 11:3 9 PM BRAID PATTERN SETTER Rule Out COVID-19 12/18/2021 12/18/2021 12/19/2021 11:34 AM CDT Rule Out COVID-19 02/24/2022 02/24/2022 02/25/2022 1:08 PM CDT Rule Out COVID-19 04/26/2022 04/26/2022 04/26/2022 6:47 AM CDT Rule Out COVID-19 05/17/2022 05/17/2022 05/17/2022 10:20 PM BRAID PATTERN SETTER Rule Out COVID-19 06/09/2022 06/09/2022 06/09/2022 9:35 AM BRAID PATTERN SETTER COVID-19 06/09/2022 06/09/2022 06/30/2022 11:4 1 PM BRAID PATTERN SETTER Rule Out COVID-19 11/10/2022 11/10/2022 11/11/2022 12:17 PM CDT Rule Out COVID-19 03/07/2023 03/07/2023 03/07/2023 1:20 PM CDT Rule Out COVID-19 12/26/2023 12/26/2023 12/26/2023 9:50 AM CDT Assessment Noted Time PHQ-9 Depression Total Score: 2 04/02/20 10:19 AM CDT documented as of this encounter Care Teams Senior Interactive Producer Relationship Specialty Start Date End Date Marija Edgar APRN TELEPHONE ADVICE NURSE PCP - General Nurse Practitioner 04/30/20 04/14/23 Esha Grimm PA-C [address] [place] [phone] PCP - General Family Medicine 05/04/23 Lita Oseguera Personal Advocate & Liaison (PAL) 02/28/20 03/27/23 Chanelle Mccann APRN CNM [address] [place] [address] Assigned OBGYN Provider 05/02/2005/09 Marija Edgar APRN TELEPHONE ADVICE NURSE Assigned PCP 06/08/20 04/29/23 Mynor Broussard MD 6363 [facility] 500 [place] [address] Assigned Surgical Provider 06/01/20 11/28/21 Keisha Dotson MD [address] [place], [place] [address] Assigned Neuroscience Provider 06/04/20 04/01/23 Galo Burrell MD Assigned Heart and Vascular Provider 10/05/20 04/02/22 Diana Desir, [facility] 3033 [place] [address] Pharmacist Pharmacist 04/17/21 Rain Galaviz PA-C [address] [facility] [address] [place] [address] Physician Inspector Assemblies And Installations Dermatology 04/28/21 Summer Lara MD 606 [facility] [place] [address] Assigned OBGYN Provider 05/10/2105/23 Summer Lara MD [address] [place] [address] Assigned OBGYN Provider 05/31/21 2 Summer Lara MD 606 [facility] [place] [address] Assigned OBGYN Provider 05/24/2105/30 Tavia Wyatt MD [address] [place] [address] Dermatology 07/14/21 Johnny Murillo MD [address] [place] [address] Assigned Musculoskeletal Provider 08/30/21 03/17/22 Erica Farrell APRN TELEPHONE ADVICE NURSE [address] [facility] [address] [place] [address] Nurse Practitioner Cardiovascular Disease 09/09/21 Teresita Bean, [facility] [address] [facility] [address] [place], [place] [address] Pharmacist Pharmacist 09/24/21 09/29/21 Tavia Wyatt MD Assigned Surgical Provider 11/29/21 05/07/22 [facility] 3033 [place] [address] Assigned MTM Pharmacist 01/02/22 Rich Barrett MD 516 [facility] 9A [place], [place] [address] Physician Ophthalmology 01/21/22 Neil Kent MD 500 [place], [place] [address] Dermatology 02/24/22 Roney Story DPM [address] [facility] [address] [place], [place] [address] Assigned Musculoskeletal Provider 03/20/22 08/13/22 Erica Farrell APRN TELEPHONE ADVICE NURSE 1700 [place] [address] Assigned Heart and Vascular Provider 04/03/22 04/16/22 Diana Desir, [facility] 3033 [place] [address] Assigned MTM Pharmacist 04/07/22 Jelena David OD [address] [facility] [place] [address] Assigned Surgical Provider 05/08/22 10/08/22 Galo Burrell MD Assigned Heart and Vascular Provider 04/17/22 06/11/22 Livan Sharif MD [address] [place] [address] Cardiovascular Disease 05/14/22 Livan Sharif MD [address] [facility] [place] [address] Assigned Heart and Vascular Provider 06/12/22 07/23/22 Catherine Cm MD [address] [place] [address] Cardiovascular Disease 07/21/22 Valery Veronica PAUcheC 909 [place] [address] Physician Inspector Assemblies And Installations Dermatology 07/21/22 Catherine Cm MD [address] [place] [address] Assigned Heart and Vascular Provider 07/24/22 11/05/22 Johnny Murillo MD [address] [place] [address] Assigned Musculoskeletal Provider 08/14/22 10/08/22 Brea Quinn APRN TELEPHONE ADVICE NURSE 500 [place], [place] 75[address] Nurse Practitioner Dermatology 09/21/22 Brea Quinn APRN TELEPHONE ADVICE NURSE 6401 [place], [place] 341592 Assigned Surgical Provider 10/09/22 [place] [address] [facility] 300 [place] [address] Assigned Musculoskeletal Provider 10/09/22 Livan Sharif MD [address], [facility] [address] [place] [address] Assigned Heart and Vascular Provider 11/06/22 11/12/22 Catherine Cm MD [address] [place], [place] [address] Assigned Heart and Vascular Provider 11/13/22 05/27/23 Sydnie Martinez RN Personal Advocate & Liaison (PAL) Family Medicine 03/28/23 07/31/23 Alfonso Renteria MD 5775 [facility] 200 [place] [address] Assigned Neuroscience Provider 04/02/23 Cheng Todd PA-C [address] [place] [address] Assigned PCP 04/30/23 07/15/23 Radha Lomeli APRN TELEPHONE ADVICE NURSE 6405 [facility] [address] [place] [address] Assigned Heart and Vascular Provider 05/28/23 Jelena David OD 3305 [facility] [place] [address] Ophthalmology 06/15/23 Pao Joseph, VJ Personal Advocate & Liaison (PAL) Nurse 08/01/23 11/07/23 Esha Grimm PA-C [address] [place] [address] Assigned PCP 07/16/23 Valery Veronica PA-C [address] [place] [address] Physician Inspector Assemblies And Installations Dermatology 09/19/23 Rey Tay MD [address] [place] [address] 342885 Gastroenterology 09/20/23 Rocky Zepeda DO [address] [place] [address]20[address] Physician Gastroenterology 09/20/23 Philip Dumont MD [address] [place] [address] Physician Ophthalmology 09/22/23 Meredith [place] PA-C [address] [place] [address] Assigned Gastroenterology Provider 11/01/23 Neil Kent MD [address] [address] Dermatology 11/02/23 [place] [address] [place] [address]157 Neurological Surgery 12/26/23 documented as of this encounter
--- OUTSIDE RECORDS SUMMARY | 2024-02-12 05:52 | XMS_ITS | Encounter Summary ---
Author Organization [place] Address [address] [place] [address] Care Team Providers Care Lineman Name Role Phone Lita Oseguera Unavailable Unavailable Marija Edgar APRN TELEMARKETER SUPERVISOR Primary Care Provider U Marija Bella APRN TELEMARKETER SUPERVISOR Unavailable Unavail able Mynor Broussard MD Unavailable [phone] Keisha Dotson MD Unavailable Galo Burrell MD Unavailable Unavailable Diana Desir [facility] Unavailable Rain Galaviz PA-C Unavailable [phone] Summer Lara MD Unavailable [phone] Tavia Wyatt MD Unavailable Unavailable Johnny Murillo MD Unavailable Erica Farrell APRN TELEMARKETER SUPERVISOR Unavailable Teresita Bean [facility] Unavailable [phone] Tavia Wyatt MD Unavailable Unavailable Diana Desir [facility] Unavailable [phone] Rich Barrett MD Unavailable Neil Kent MD Unavailable Roney Story DPM Unavailable [phone] Erica Farrell APRN TELEMARKETER SUPERVISOR Unavailable + Diana Desir [facility] Unavailable Jelena David OD Unavailable Galo Burrell MD Unavailable Unavailable Livan Sharif MD Unavailable Livan Sharif MD Unavailable IsCatherine hobbs MD Unavailable + Valery Veronica PA-C Unavailable [phone] Catherine Cm MD Unavailable + Johnny Murillo MD Unavailable [phone] Brea Quinn COUNTER WAITER TELEMARKETER SUPERVISOR Unavailable [phone] Brea Quinn COUNTER WAITER TELEMARKETER SUPERVISOR Unavailable [phone] Jose Francisco Johnson MD Unavailable Livan Sharif MD Unavailable + IsCatherine hobbs MD Unavailable + Sydnie Martinez RN Unavailable Unavailable Alfonso Renteria MD Unavailable Esha Grimm PA-C Primary Care Provider Cheng Todd PA-C Unavailable Radha Lomeli COUNTER WAITER TELEMARKETER SUPERVISOR Unavailable [phone] Jelena David OD Unavailable [phone] Pao Joseph RN Unavailable Unavailable Esha Grimm-C Unavailable [phone] Valery Veronica PA-C Unavailable [phone] Rey Tay MD Unavailable Rocky Zepeda DO Unavailable Philip Dumont MD Unavailable [phone] Meredith Carrera PA-C Unavailable Neil Kent MD Unavailable Juan Pablo Emmanuel MD Unavailable Encounter Details Date Type Department Care Team (Late st Contact Info) Description 06/01/2021 MyC Medical Advice [address] [address] Diana Desir, [facility] [address] [place] [address] Social History Tobacco Use Types Packs/Day Years [...] you attend chur ch or episcopal services? More than 4 times [...] Answer Date Recorded PHQ-2 Score 0 04/02/2021 [facility] [...] a group home (including now)? No 08/11/2020 Soquel Depression Scale Answer Date Recorded Soquel Depression Score 5 01/14/2021 Last EPDS Self [...] Notes * Telephone Encounter - Diana Desir [facility] - 06/01/2021 3:43 PM CST Called patient and reassured 50 mg dose increase in sertraline is typical and okay to do. She will closely monitor changes in mental health over next couple weeks. Answered all questions. Diana Desir, PharmD Medication Therapy Management Provider, [facility] Pager: [phone] [employer] CIGAR PROCESSING documented in this encounter Plan of Treatment Upcoming Encounters Date Type Department Care Team (Latest Contact Info) Description 02/14/2024 12:50 PM CDT Therapy Visit [address] [phone] Rustam Medina, PT [facility] [address] [place] [address] 03/06/2024 3:00 PM CDT Office Visit [facility] Heart [address] [place] [phone] Radha Lomeli, COUNTER WAITER TELEMARKETER SUPERVISOR [address] [place] [address]115 03/07/2024 9:00 AM CDT Hospital Encounter [facility] OR [address]th [place] [phone] Rocky Zepeda DO 500 [place], [place] [address] 03/07/2024 9:00 AM CDT - 03/07/2024 9:30 AM CDT Surgery [facility] OR [address] [place] [phone] Rocky Zepeda DO [address] [place], [place] [phone] Esophagoscopy, gastroscopy, duodenoscopy (EGD), combined 06/21/2024 2:00 PM SUPERVISOR CIGAR PROCESSING Office Visit [facility] Neurology Clinics - [place] [address] [place] [address], [address] [place] [phone] [place] [address] [place], [place] [address] Johnny Penn MD [address] [place] [id number] Scheduled Procedures Name Priority Associated Diagnoses Date/Ti ms ESOPHAGOGASTRODUODENOSCOPY Eosinophilic esophagitis Esophageal dysphagia 03/07/2024 9:00 AM CDT documented as of this encounter Visit Diagnoses Not on filedocumented in this encounter Additional Health Concerns Infection Onset Date Last Indicated Resolved Time Rule Out COVID-19 07/13/2021 07/13/2021 07/14/2021 3:04 PM SUPERVISOR CIGAR PROCESSING Rule Out COVID-19 07/18/2021 07/18/2021 07/20/2021 1:56 PM SUPERVISOR CIGAR PROCESSING COVID-19 07/18/2021 07/18/2021 08/08/2021 11:3 9 PM SUPERVISOR CIGAR PROCESSING Rule Out COVID-19 12/18/2021 12/18/2021 12/19/2021 11:34 AM CDT Rule Out COVID-19 02/24/2022 02/24/2022 02/25/2022 1:08 PM CDT Rule Out COVID-19 04/26/2022 04/26/2022 04/26/2022 6:47 AM CDT Rule Out COVID-19 05/17/2022 05/17/2022 05/17/2022 10:20 PM SUPERVISOR CIGAR PROCESSING Rule Out COVID-19 06/09/2022 06/09/2022 06/09/2022 9:35 AM SUPERVISOR CIGAR PROCESSING COVID-19 06/09/2022 06/09/2022 06/30/2022 11:4 1 PM SUPERVISOR CIGAR PROCESSING Rule Out COVID-19 11/10/2022 11/10/2022 11/11/2022 12:17 PM CDT Rule Out COVID-19 03/07/2023 03/07/2023 03/07/2023 1:20 PM CDT Rule Out COVID-19 12/26/2023 12/26/2023 12/26/2023 9:50 AM CDT Assessment Noted Time PHQ-9 Depression Total Score: 2 04/02/20 21 10:19 AM CDT documented as of this encounter Care Teams Lineman Relationship Specialty Start Date End Date Marija Edgar APRN TELEMARKETER SUPERVISOR PCP - General Nurse Practitioner 04/30/20 04/14/23 Esha Grimm PA-C [address] [place] [phone] PCP - General Family Medicine 05/04/23 Lita Oseguera Personal Advocate & Liaison (PAL) 02/28/20 03/27/23 Marija Edgar APRN TELEMARKETER SUPERVISOR Assigned PCP 06/08/20 04/29/23 Mynor Broussard MD [address] [facility] [address] [place] [address] Assigned Surgical Provider 06/01/20 11/28/21 Keisha Dotson MD 909 [place] [address] Assigned Neuroscience Provider 06/04/20 04/01/23 Galo Burrell MD Assigned Heart and Vascular Provider 10/05/20 04/02/22 Diana Desir, [facility] [address] [place] [address] Pharmacist Pharmacist 04/17/21 Rain Galaviz PA-C [address] [facility] [address] [place] [address] Physician Telegraph Office Route Aide Dermatology 04/28/21 Summer Lara MD [address] [place] [address] Assigned OBGYN Provider 05/31/21 2 Tavia Wyatt MD [address] [place] [address] Dermatology 07/14/21 Johnny Murillo MD [address] [facility] [address] [place] [address] Assigned Musculoskeletal Provider 08/30/21 03/17/22 Erica Farrell APRN TELEMARKETER SUPERVISOR [address] [facility] [address] [place] [address] Nurse Practitioner Cardiovascular Disease 09/09/21 Teresita Bean, [facility] [address] [place] [address] Pharmacist Pharmacist 09/24/21 09/29/21 Tavia Wyatt MD Assigned Surgical Provider 11/29/21 05/07/22 [facility] [address] [place] [address] Assigned MTM Pharmacist 01/02/22 Rich Barrett MD [address] [address] Physician Ophthalmology 01/21/22 Neil Kent MD 500 [place], [place] 6[address] Dermatology 02/24/22 Roney Story DPM [address] [facility] [address] [place], [place] 6880[address] Assigned Musculoskeletal Provider 03/20/22 08/13/22 Erica Farrell APRN TELEMARKETER SUPERVISOR 1700 [place] [address] Assigned Heart and Vascular Provider 04/03/22 04/16/22 Diana Desir, [facility] [address] [place] [address] Assigned MTM Pharmacist 04/07/22 Jelena David OD [address] [facility] [place] [address] Assigned Surgical Provider 05/08/22 10/08/22 Galo Burrell MD Assigned Heart and Vascular Provider 04/17/22 06/11/22 Livan Sharif MD [address] [place] [address] Cardiovascular Disease 05/14/22 Livan Sharif MD [address], [address] [place] [address] Assigned Heart and Vascular Provider 06/12/22 07/23/22 Catherine Cm MD [address] [facility] [address] [place] [address] Cardiovascular Disease 07/21/22 Valery Veronica, PA-C [address]09 [place], [place] 388525 Physician Telegraph Office Route Aide Dermatology 07/21/22 Catherine Cm MD [address] [place] [address] Assigned Heart and Vascular Provider 07/24/22 11/05/22 Johnny Murillo MD [address] 996034 Assigned Musculoskeletal Provider 08/14/22 10/08/22 Brea Quinn APRN TELEMARKETER SUPERVISOR [address] [place] [address] Nurse Practitioner Dermatology 09/21/22 Brea Quinn APRN TELEMARKETER SUPERVISOR 64[address] [facility] [place] [address] Assigned Surgical Provider 10/09/22 [place] [address] [address] [facility] [address] [place] [address] Assigned Musculoskeletal Provider 10/09/22 Livan Sharif MD [address] [facility] [address] [place] [address] Assigned Heart and Vascular Provider 11/06/22 11/12/22 Catherine Cm MD [address] [facility] [address] [place] 251555 Assigned Heart and Vascular Provider 11/13/22 05/27/23 Sydnie Martinez, VJ Personal Advocate & Liaison (PAL) Family Medicine 03/28/23 07/31/23 Alfonso Renteria MD [address] [facility] 200 [place] [address] Assigned Neuroscience Provider 04/02/23 Cheng Todd PA-C [address] [place] [address] Assigned PCP 04/30/23 07/15/23 Radha Lomeli APRN TELEMARKETER SUPERVISOR [address] [place] [address] Assigned Heart and Vascular Provider 05/28/23 Jelena David OD [address] [facility] [place] [address] MD Ophthalmology 06/15/23 Pao Joseph, RN Personal Advocate & Liaison (PAL) Nurse 08/01/23 11/07/23 Esha Grimm PA-C [address] [place] [address] Assigned PCP 07/16/23 Valery Veronica PA-C [address] [place] [address] 718285 Physician Telegraph Office Route Aide Dermatology 09/19/23 Rey Tay MD [address] [place] [address] Gastroenterology 09/20/23 Rocky Zepeda DO [address] [place] [address]26655 Physician Gastroenterology 09/20/23 Philip Dumont MD [address] [place] [address] 836095 Physician Ophthalmology 09/22/23 Meredith Carrera PA-C [address] [place] [address] 617245 Assigned Gastroenterology Provider 11/01/23 Neil Kent MD [address] [phone] Dermatology 11/02/23 [place] [address] [address] Neurological Surgery 12/26/23 documented as of this encounter
[2024-02-12 05:53] LABS: D Dimer Quantitative* < 0.27 ug/ml (0.00-0.50)
--- OUTSIDE RECORDS SUMMARY | 2024-02-12 05:53 | XMS_ITS | Encounter Summary ---
Author Organization [place] Address [address] [place] [address] Care Team Providers Care Bench Press Operator Name Role Phone Lita Oseguera Unavailable Unavailable Marija Edgar INTER FOLD ROLL CUTTER CHICK SEXER Primary Care Provider Chanelle Gutierrez INTER FOLD ROLL CUTTER CNM Unavailab le Kyara De La Fuente RN Unavailable [phone] Marija Edgar APRN CHICK SEXER Unavailable Unavail able Mynor Broussard MD Unavailable [phone] Keisha Dotson MD Unavailable Galo Burrell MD Unavailable Unavailable Cristina Wood Unavailable Diana Desir [facility] Unavailable [phone] Rain Galaviz PA-C Unavailable Summer Lara MD Unavailable [phone] Summer Lara MD Unavailable [phone] Summer Lara MD Unavailable [phone] Tavia Wyatt MD Unavailable Unavailable Johnny Murillo MD Unavailable Erica Farrell APRN CHICK SEXER Unavailable Teresita Bean [facility] Unavailable [phone] Tavia Wyatt MD Unavailable Unavailable ThangKendrickDiana Stanislav [facility] Unavailable [phone] Rich Barrett MD Unavailable [phone] Neil Kent MD Unavailable Roney Story DPM Unavailable [phone] Erica Farrell INTER FOLD ROLL CUTTER CHICK SEXER Unavailable + Diana Desir [facility] Unavailable [phone] Jelena David OD Unavailable [phone] Galo Burrell MD Unavailable Unavailable Livan Sharif MD Unavailable + Livan Sharif MD Unavailable + Catherine Cm MD Unavailable + Valery Veronica PA-C Unavailable +[phone] Catherine Cm MD Unavailable + Johnny Murillo MD Unavailable [phone] Brea Quinn INTER FOLD ROLL CUTTER CHICK SEXER Unavailable [phone] Brea Quinn INTER FOLD ROLL CUTTER CHICK SEXER Unavailable [phone] Jose Francisco Johnson MD Unavailable Livan Sharif MD Unavailable + Catherine Cm MD Unavailable + Sydnie Martinez RN Unavailable Unavailable Alfonso Renteria MD Unavailable [phone] Esha Grimm PA-C Primary Care Provider Cheng Todd PA-C Unavailable [phone] Radha Lomeli INTER FOLD ROLL CUTTER CHICK SEXER Unavailable [phone] Jelena David OD Unavailable [phone] Pao Joseph RN Unavailable Unavailable Wicho Grimmlincoln Medina PAUcheC Unavailable [phone] Valery VeronicaC Unavailable [phone] Rey Tay MD Unavailable Duane Rockyanne [place] Unavailable Philip Dumont MD Unavailable [phone] Meredith CarreraC Unavailable [phone] Neil Kent MD Unavailable Juan Pablo Emmanuel MD Unavailable [phone] Encounter Details Date Type Department Care Team (Late st Contact Info) Description 01/02/2021 MyC Medical Advice [address] [address] [place] Social History Tobacco [...] you attend chur ch or denominational services? More than 4 times per year [...] Answer Date Recorded PHQ-2 Score 3 09/29/2020 [facility] - Occupational [...] 02/14/2024 12:50 PM CDT Therapy Visit [facility] [address] [address] Rustam Medina, PT [facility] [address] [place] [address] 03/06/2024 3:00 PM CDT Office Visit [facility] [place] [address] [facility] [address] [place] [address] Radha Lomeli, INTER FOLD ROLL CUTTER CHICK SEXER [address] [place] [address] 03/07/2024 9:00 AM CDT Hospital Encounter [address] 5th [place] [address] Rocky Zepeda DO 500 [place], [place] [address] 03/07/2024 9:00 AM CDT - 03/07/2024 9:30 AM CDT Surgery [facility] [address] [facility] [address] 5th [place] [phone] Rocky Zepeda DO 500 [place] [address] Esophagoscopy, gastroscopy, duodenoscopy (EGD), combined 06/21/2024 2:00 PM LAW ENFORCEMENT DIRECTOR Office Visit [facility] Neurology Clinics - [address], [address] [place] [address] [place] [address] [place], [place] [address] Johnny Penn MD [address] [place], [place] [address] Scheduled Procedures Name Priority Associated Diagnoses Date/Ti sc ESOPHAGOGASTRODUODENOSCOPY Eosinophilic esophagitis Esophageal dysphagia 03/07/2024 9:00 AM CDT documented as of this encounter Visit Diagnoses Not on filedocumented in this encounter Additional Health Concerns Infection Onset Date Last Indicated Resolved Time Rule Out COVID-19 05/11/2021 05/11/2021 05/13/2021 10:18 AM CDT Rule Out COVID-19 07/13/2021 07/13/2021 07/14/2021 3:04 PM LAW ENFORCEMENT DIRECTOR Rule Out COVID-19 07/18/2021 07/18/2021 07/20/2021 1:56 PM LAW ENFORCEMENT DIRECTOR COVID-19 07/18/2021 07/18/2021 08/08/2021 11:3 9 PM LAW ENFORCEMENT DIRECTOR Rule Out COVID-19 12/18/2021 12/18/202112/19/2021 11:34 AM CDT Rule Out COVID-19 02/24/2022 02/24/2022 02/25/2022 1:08 PM CDT Rule Out COVID-19 04/26/2022 04/26/2022 04/26/2022 6:47 AM CDT Rule Out COVID-19 05/17/2022 05/17/2022 05/17/2022 10:20 PM LAW ENFORCEMENT DIRECTOR Rule Out COVID-19 06/09/2022 06/09/2022 06/09/2022 9:35 AM LAW ENFORCEMENT DIRECTOR COVID-19 06/09/2022 06/09/2022 06/30/2022 11:4 1 PM LAW ENFORCEMENT DIRECTOR Rule Out COVID-19 11/10/2022 11/10/2022 11/11/2022 12:17 PM CDT Rule Out COVID-19 03/07/2023 03/07/2023 03/07/2023 1:20 PM CDT Rule Out COVID-19 12/26/2023 12/26/2023 12/26/2023 9:50 AM CDT Assessment Noted Time PHQ-9 Depression Total Score: 6 09/30/19 3:25 PM CDT documented as of this encounter Care Teams Bench Press Operator Relationship Specialty Start Date End Date Marija Edgar APRN CHICK SEXER PCP - General Nurse Practitioner 04/30/20 04/14/23 Esha Grimm PA-C [address] [place] [address] PCP - General Family Medicine 05/04/23 Lita Oseguera Personal Advocate & Liaison (PAL) 02/28/20 03/27/23 Chanelle Mccann APRN [place]NAdam [address] [address] Assigned OBGYN Provider 05/02/2005/09 Kyara De La Fuente, VJ Specialty Displayer Merchandise Neurology 06/04/20 03/05/21 Marija Edgar APRN CHICK SEXER Assigned PCP 06/08/20 04/29/23 Mynor Broussard MD [address] [facility] 500 [place] [address] Assigned Surgical Provider 06/01/20 11/28/21 Keisha Dotson MD 909 [place] [address] Assigned Neuroscience Provider 06/04/20 04/01/23 Galo Burrell MD Assigned Heart and Vascular Provider 10/05/20 04/02/22 Cristina Wood Financial Resource Worker 02/09/21 02/09/21 [facility] [address] [place] [address] Pharmacist Pharmacist 04/17/21 Rain Galaviz PA-C [address] [place] [address] [address] [place] [address] Physician Electrical Instrument Maker Dermatology 04/28/21 Summer Lara MD [address] [place] [address] 590744 Assigned OBGYN Provider 05/10/2105/23 Summer Lara MD [address] [place] [address] Assigned OBGYN Provider 05/31/21 2 Summer Lara MD [address] [place] [address] Assigned OBGYN Provider 05/24/2105/30 Tavia Wyatt MD [address] [place] [address] Dermatology 07/14/21 Johnny Murillo MD [address] [place] [address] Assigned Musculoskeletal Provider 08/30/21 03/17/22 Erica Farrell APRN CHICK SEXER [address] [facility] [address] [place] [address] Nurse Practitioner Cardiovascular Disease 09/09/21 [facility] [address] [facility] [place] [address] Pharmacist Pharmacist 09/24/21 09/29/21 Tavia Wyatt MD Assigned Surgical Provider 11/29/21 05/07/22 Diana Desir, [facility] [address] [place] [address] Assigned MTM Pharmacist 01/02/22 Rich Barrett MD [address] [address]68[address] Physician Ophthalmology 01/21/22 Neil Kent MD 500 [place], [place] [address] Dermatology 02/24/22 Roney Story DPM [address] [facility] [address] [place] [address] Assigned Musculoskeletal Provider 03/20/22 08/13/22 Erica Farrell APRN CHICK SEXER 1700 [place] [address] Assigned Heart and Vascular Provider 04/03/22 04/16/22 Diana Desir, [facility] [address] [place], [place] 8[address] Assigned MTM Pharmacist 04/07/22 Jelena David OD [address] [facility] [place] [address] Assigned Surgical Provider 05/08/22 10/08/22 Galo Burrell MD Assigned Heart and Vascular Provider 04/17/22 06/11/22 Livan Sharif MD [address] [place] [address] Cardiovascular Disease 05/14/22 Livan Sharif MD [address] [place] [address] Assigned Heart and Vascular Provider 06/12/22 07/23/22 Catherine Cm MD [address] [place] [address] Cardiovascular Disease 07/21/22 Valery Veronica, PA-C 909 [place] [address] Physician Electrical Instrument Maker Dermatology 07/21/22 Catherine Cm MD [address] [facility] [address] [place] [address] Assigned Heart and Vascular Provider 07/24/22 11/05/22 Johnny Murillo MD [facility] [address] [address] Assigned Musculoskeletal Provider 08/14/22 10/08/22 Brea Quinn APRN CHICK SEXER [address] [place] [address]595 Nurse Practitioner Dermatology 09/21/22 Brea Quinn APRN CHICK SEXER [address] [place] [address] [place] 694932 Assigned Surgical Provider 10/09/22 [place] [address] [address] Assigned Musculoskeletal Provider 10/09/22 Livan Sharif MD [address] [place] [address] Assigned Heart and Vascular Provider 11/06/22 11/12/22 Catherine Cm MD [address] [facility] [address] [place] [address] Assigned Heart and Vascular Provider 11/13/22 05/27/23 Sydnie Martinez RN Personal Advocate & Liaison (PAL) Family Medicine 03/28/23 07/31/23 Alfonso Renteria MD [address] [facility] [address] 200 [place] [address] Assigned Neuroscience Provider 04/02/23 Cheng Todd PA-C [address] [place] [address] Assigned PCP 04/30/23 07/15/23 Radha Lomeli APRN CHICK SEXER [address] [facility] [address] [place] [address] Assigned Heart and Vascular Provider 05/28/23 Jelena David OD [facility] [facility] [place] [address] Ophthalmology 06/15/23 Pao Joseph, VJ Personal Advocate & Liaison (PAL) Nurse 08/01/23 11/07/23 Esha Grimm PA-C [address] [place] [address] Assigned PCP 07/16/23 Valery Veronica PA-C [address] [place] [address] Physician Electrical Instrument Maker Dermatology 09/19/23 Rey Tay MD [address] [place] [address] Gastroenterology 09/20/23 Rocky Zepeda DO [address] [place] [address] Physician Gastroenterology 09/20/23 Philip Dumont MD [address] [place] [address] Physician Ophthalmology 09/22/23 Meredith Carrera PA-C [address] [place] [address] Assigned Gastroenterology Provider 11/01/23 Neil Kent MD [address] [place] [address] Dermatology 11/02/23 [place] [address] [place] [address] Neurological Surgery 12/26/23 documented as of this encounter
--- OUTSIDE RECORDS SUMMARY | 2024-02-12 05:53 | XMS_ITS | Encounter Summary ---
Author Organization [facility] Address [address] [place] [address]83 Care Team Providers Care Engineer Exhauster Name Role Phone Lita Oseguera Unavailable Unavailable Marija Edgar APRN TICKET WRITER Primary Care Provider Chanelle Gutierrez MOVER HELPER CNM Unavailab le Kyara De La Fuente RN Unavailable [phone] Marija Edgar APRN TICKET WRITER Unavailable Unavail able Mynor Broussard MD Unavailable [phone] Keisha Dotson MD Unavailable Stacey Briones NEWS WRITER Unavailable Mary Mejia Unavailable Unavailable Galo Burrell MD Unavailable Unavailable Cristina Wood Unavailable Lesley Moody [facility] Unavailable [phone] Meredith Bedoya Unavailable Unavailable Cristina Wood Unavailable Diana Desir [facility] Unavailable Rain Galaviz PA-C Unavailable Summer Lara MD Unavailable [phone] Summer Lara MD Unavailable [phone] Summer Lara MD Unavailable [phone] Tavia Wyatt MD Unavailable Unavailable HarveyJohnny mckeon MD Unavailable +1- Erica Farrell MOVER HELPER TICKET WRITER Unavailable + VikasTeresita [facility] Unavailable Tavia Wyatt MD Unavailable Unavailable Diana Desir [facility] Unavailable [phone] Rich Barrett MD Unavailable Neil Kent MD Unavailable Roney Story DPM Unavailable [phone] Erica Farrell MOVER HELPER TICKET WRITER Unavailable + Diana Desir [facility] Unavailable [phone] Jelena David Unavailable [phone] Galo Burrell MD Unavailable Unavailable Livan Sharif MD Unavailable + Livan Sharif MD Unavailable + Catherine Cm MD Unavailable + Valery Veronica PA-C Unavailable +[phone] Catherine Cm MD Unavailable + Johnny Murillo MD Unavailable +1- Brea Quinn MOVER HELPER TICKET WRITER Unavailable +[phone] Brea Quinn MOVER HELPER TICKET WRITER Unavailable [phone] Jose Francisco Johnson MD Unavailable Livan Sharif MD Unavailable + Catherine Cm MD Unavailable + Sydnie Martinez RN Unavailable Unavailable Alfonso Renteria MD Unavailable +[phone] Alfa, Esha M PA-C Primary Care Provider PerezCheng Abe PA-C Unavailable Radha Lomeli APRN TICKET WRITER Unavailable [phone] Jelena David OD Unavailable Pao Joseph RN Unavailable Unavailable Wicho Grimmlincoln Medina PA-C Unavailable [phone] Valery Veronica PA-C Unavailable [phone] Rey Tay MD Unavailable Rocky Zepeda DO Unavailable Philip Dumont MD Unavailable [phone] Meredith Carrera PA-C Unavailable +[phone] Neil Kent MD Unavailable Juan Pablo Emmanuel MD Unavailable [phone] Encounter Details Date Type Department Care Team (Late st Contact Info) Description 10/02/2020 MyC Medical Advice [facility] Care Coordination [address] [place] [phone] Stacey Briones, [facility] Social History Tobacco Use Types Packs/Day Years [...] do you attend chur or mandaeism services? More than 4 times per year [...] Answer Date Recorded PHQ-2 Score 3 09/29/2020 [facility]ational [facility] Questionnaire Answer [...] in a correction (including now)? No 08/11/2020 Education Answer Date [...] Description 02/14/2024 12:50 PM CDT Therapy Visit [facility] [address] [place] [phone] Rustam Medina, PT [facility] [address] [place] [address] 03/06/2024 3:00 PM CDT Office Visit [facility] [address] [place] [address] Armani Radha E, MOVER HELPER TICKET WRITER [address] [place] [address]55 03/07/2024 9:00 AM CDT Hospital Encounter [facility] OR [address] 5th [place] [phone] Rocky Zepeda DO 500 [place], [place] [address]295 03/07/2024 9:00 AM CDT - 03/07/2024 9:30 AM CDT Surgery [address] [phone] Rocky Zepeda DO 500 [place], [place] 0[address]25 Esophagoscopy, gastroscopy, duodenoscopy (EGD), combined 06/21/2024 2:00 PM POULTRY OFFAL ICER Office Visit [facility] Neurology Clinics - [place] [address] [place] [address], [address] [place] [phone] [place] [address] [place] [id number] Johnny Penn MD [address] [place] [place] 3[address]35 Scheduled Procedures Name Priority Associated Diagnoses Date/Ti [...] Out COVID-19 07/13/2021 07/13/2021 07/14/2021 3:04 PM POULTRY OFFAL ICER Rule Out COVID-19 07/18/2021 07/18/2021 07/20/2021 1:56 PM POULTRY OFFAL ICER COVID-19 07/18/2021 07/18/2021 08/08/2021 11:3 9 PM POULTRY OFFAL ICER Rule Out COVID-19 12/18/2021 12/18/2021 12/19/2021 11:34 AM CDT Rule Out COVID-19 02/24/2022 02/24/2022 02/25/2022 1:08 PM CDT Rule Out COVID-19 04/26/2022 04/26/2022 04/26/2022 6:47 AM CDT Rule Out COVID-19 05/17/2022 05/17/2022 05/17/2022 10:20 PM POULTRY OFFAL ICER Rule Out COVID-19 06/09/2022 06/09/2022 06/09/2022 9:35 AM POULTRY OFFAL ICER COVID-19 06/09/2022 06/09/2022 06/30/2022 11:4 1 PM POULTRY OFFAL ICER Rule Out COVID-19 11/10/2022 11/10/2022 11/11/2022 12:17 PM CDT Rule Out COVID-19 03/07/2023 03/07/2023 03/07/2023 1:20 PM CDT Rule Out COVID-19 12/26/2023 12/26/2023 12/26/2023 9:50 AM CDT Assessment Noted Time PHQ-9 Depression Total Score: 6 09/30/19 3:25 PM CDT documented as of this encounter Care Teams Engineer Exhauster Relationship Specialty Start Date End Date Marija Edgar APRN CNP PCP - General Nurse Practitioner 04/30/20 04/14/23 Esha Grimm PA-C [address] [place] [phone] PCP - General Family Medicine 05/04/23 Lita Oseguera Personal Advocate & Liaison (PAL) 02/28/20 03/27/23 Chanelle Mccann APRN CNM [address] [address] [facility] 200 [place] [address] Assigned OBGYN Provider 05/02/2005/09 Kyara De La Fuente, VJ Specialty Product Management Manager Neurology 06/04/20 03/05/21 Marija Edgar APRN TICKET WRITER Assigned PCP 06/08/20 04/29/23 Mynor Broussard MD 6363 [facility] 500 [place], [place] 8750[address] Assigned Surgical Provider 06/01/20 11/28/21 Keisha Dotson MD 909 [place], [place] 876865 Assigned Neuroscience Provider 06/04/20 04/01/23 Stacey Briones, [facility] Lead Product Management Manager Primary Care - CC 08/11/2012/30 Mary Mejia Financial Resource Worker 09/02/20 10/06/20 Galo Burrell MD Assigned Heart and Vascular Provider 10/05/20 04/02/22 Cristina Wood Financial Resource Worker 10/07/20 10/14/20 Lesley Moody, [facility] Community Health Worker 10/23/2012/30 Meredith Bedoya Financial Resource Worker 10/23/20 11/23/20 Cristina Wood Financial Resource Worker 02/09/21 02/09/21 Diana Desir, [facility] [address] [place] [address] Pharmacist Pharmacist 04/17/21 Rain Galaviz PA-C [address] [place] [address] [place] [address] Physician Lone Lead Lineman Dermatology 04/28/21 Summer Lara MD [address] [place], [place] 2[address]84 Assigned OBGYN Provider 05/10/2105/23 Summer Lara MD [address] [place] [address] Assigned OBGYN Provider 05/31/21 Summer Lara MD [address] [facility] [address] [place], [place] [address] Assigned OBGYN Provider 05/24/2105/30 Tavia Wyatt MD [address] [facility] [place] [address] Dermatology 07/14/21 Johnny Murillo MD [address] [place] [address] Assigned Musculoskeletal Provider 08/30/21 03/17/22 Erica Farrell APRN TICKET WRITER 6405 [facility] [address] [place] [address] Nurse Practitioner Cardiovascular Disease 09/09/21 [facility] [address] [facility] [place] [address] Pharmacist Pharmacist 09/24/21 09/29/21 Tavia Wyatt MD Assigned Surgical Provider 11/29/21 05/07/22 Diana Desir, [facility] [address] [place] [address] Assigned MTM Pharmacist 01/02/22 Rich Barrett MD [address] 876725 Physician Ophthalmology 01/21/22 Neil Kent MD 500 [place], [place] 379395 Dermatology 02/24/22 Roney Story DPM [address] [facility] 300 [place] [address] Assigned Musculoskeletal Provider 03/20/22 08/13/22 Erica Farrell APRN TICKET WRITER [facility]0 [place] [address] Assigned Heart and Vascular Provider 04/03/22 04/16/22 [facility] [address] [place] [address] Assigned MTM Pharmacist 04/07/22 Jelena David OD [address] [facility] [place] [address] Assigned Surgical Provider 05/08/22 10/08/22 Galo Burrell MD Assigned Heart and Vascular Provider 04/17/22 06/11/22 Livan Sharif MD [address] [place] [address] Cardiovascular Disease 05/14/22 Livan Sharif MD [address], [address] [place] [address] Assigned Heart and Vascular Provider 06/12/22 07/23/22 Catherine Cm MD [address] [place], [place] [address] Cardiovascular Disease 07/21/22 Valery Veronica, PA-C [address] [place] [address] 978825 Physician Lone Lead Lineman Dermatology 07/21/22 Catherine Cm MD [address] [place] [address] Assigned Heart and Vascular Provider 07/24/22 11/05/22 Johnny Murillo MD [facility] [address] 684894 Assigned Musculoskeletal Provider 08/14/22 10/08/22 Brea Quinn APRN TICKET WRITER [address] [place] [address] 878185 Nurse Practitioner Dermatology 09/21/22 Brea Quinn APRN TICKET WRITER [address] [place] [address] Assigned Surgical Provider 10/09/22 [place] [address] [facility] 300 [place] [address] Assigned Musculoskeletal Provider 10/09/22 Livan Sharif MD [address], [facility] [address] [place], [place] 7[address] Assigned Heart and Vascular Provider 11/06/22 11/12/22 Catherine Cm MD [address] [place] 043135 Assigned Heart and Vascular Provider 11/13/22 05/27/23 Sydnie Martinez, VJ Personal Advocate & Liaison (PAL) Family Medicine 03/28/23 07/31/23 Alfonso Renteria MD [address] [facility] 200 [place] [address] Assigned Neuroscience Provider 04/02/23 Cheng Todd PA-C [address] [place] [address] Assigned PCP 04/30/23 07/15/23 Radha Lomeli APRN TICKET WRITER [address] [place] [address] Assigned Heart and Vascular Provider 05/28/23 Jelena David OD [facility] [facility] [address] MD Ophthalmology 06/15/23 Pao Joseph, RN Personal Advocate & Liaison (PAL) Nurse 08/01/23 11/07/23 Esha Grimm PA-C [address] [place] [address] Assigned PCP 07/16/23 Valery Veronica PA-C [address] [place] [address] 911205 Physician Lone Lead Lineman Dermatology 09/19/23 Rey Tay MD [address] [place] [address] 847465 MD Gastroenterology 09/20/23 Rocky Zepeda DO [address] [place] [address] 588645 Physician Gastroenterology 09/20/23 Philip Dumont MD [address] [place] [address] 516385 Physician Ophthalmology 09/22/23 Meredith Carrera PA-C [address] [place] [address] 455425 Assigned Gastroenterology Provider 11/01/23 Neil Ketn MD [address] [address] Dermatology 11/02/23 [place] [address] [place] [address] Neurological Surgery 12/26/23 documented as of this encounter
--- OUTSIDE RECORDS SUMMARY | 2024-02-12 05:53 | XMS_ITS | Encounter Summary ---
Author Organization [facility] Address [address] [place] [address] Care Team Providers Care Canine Service Instructor Trainer Name Role Phone Lita Oseguera Unavailable Unavailable Marija Edgar METAL BENDING MACHINE OPERATOR FISHERMAN HELPER Primary Care Provider Chanelle Gutierrez METAL BENDING MACHINE OPERATOR CNM Unavailab le Kyara De La Fuente RN Unavailable [phone] Marija Edgar APRN FISHERMAN HELPER Unavailable Unavail able Mynor Broussard MD Unavailable [phone] Keisha Dotson MD Unavailable Galo Burrell MD Unavailable Unavailable Cristina Wood Unavailable Diana Desir [facility] Unavailable Rain Galaviz PA-C Unavailable [phone] Summer Lara MD Unavailable [phone] Summer Lara MD Unavailable [phone] Summer Lara MD Unavailable [phone] Tavia Wyatt MD Unavailable Unavailable Johnny Murillo MD Unavailable Erica Farrell APRN FISHERMAN HELPER Unavailable Teresita Bean [facility] Unavailable Tavia Wyatt MD Unavailable Unavailable ThangKendrickDiana Stanislav [facility] Unavailable [phone] Rich Barrett MD Unavailable [phone] Neil Kent MD Unavailable Roney Story DPM Unavailable [phone] Erica Farrell METAL BENDING MACHINE OPERATOR FISHERMAN HELPER Unavailable + Diana Desir [facility] Unavailable [phone] Jelena David OD Unavailable [phone] Galo Burrell MD Unavailable Unavailable Livan Sharif MD Unavailable + Livan Sharif MD Unavailable + Catherine Cm MD Unavailable + Valery Veronica PA-C Unavailable +[phone] Catherine Cm MD Unavailable + Johnny Murillo MD Unavailable [phone] Brea Quinn METAL BENDING MACHINE OPERATOR FISHERMAN HELPER Unavailable [phone] Brea Quinn METAL BENDING MACHINE OPERATOR FISHERMAN HELPER Unavailable [phone] Jose Francisco Johnson MD Unavailable Livan Sharif MD Unavailable + Catherine Cm MD Unavailable + Sydnie Martinez RN Unavailable Unavailable Alfonso Renteria MD Unavailable [phone] Esha Grimm PA-C Primary Care Provider [phone] Cheng Todd PA-C Unavailable [phone] Radha Lomeli METAL BENDING MACHINE OPERATOR FISHERMAN HELPER Unavailable +[phone] Jelena David OD Unavailable [phone] Pao Joseph RN Unavailable Unavailable Alfa Eshalincoln DOWC Unavailable [phone] Valery Veronica PA-C Unavailable [phone] Rey Tay MD Unavailable Rocky Zepeda DO Unavailable Philpi Dumont MD Unavailable [phone] Meredith Carrera PA-C Unavailable [phone] Neil Kent MD Unavailable Juan Pablo Emmanuel MD Unavailable [phone] Encounter Details Date Type Department Care Team (Late st Contact Info) Description 01/06/[address] [facility] - Surgical Specialties Service Line [address] [place] [address] Saurabh Marcial MD 1642 [facility] 200 [place] [address] Indication for care in labor [...] Answer Date Recorded PHQ-2 Score 3 09/29/2020 [facility] - Occupational Stress Questionnaire [...] Description 02/14/2024 12:50 PM CDT Therapy Visit [facility] [address] [place] [phone] Rustam Medina, PT [facility] [address] [place] [address] 03/06/2024 3:00 PM CDT Office Visit [facility] [place] [address] [facility] [address] [place] [phone] Radha Lomeli, METAL BENDING MACHINE OPERATOR FISHERMAN HELPER [address] [place] 8[address] 03/07/2024 9:00 AM CDT Hospital Encounter [facility] OR [place] 909 [facility] 5th [place] [phone] Rocky Zepeda, 500 [place], [place] [address] 03/07/2024 9:00 AM CDT - 03/07/2024 9:30 AM CDT Surgery [facility] 909 [facility] 5th [place] [phone] Rocky Zepeda DO 500 [place], [place] 5867[address] Esophagoscopy, gastroscopy, duodenoscopy (EGD), combined 06/21/2024 2:00 PM REAMING MACHINE OPERATOR FOR PLASTIC Office Visit [facility] Neurology Clinics - [address], [address] [place] [address] [place] [address] [place] [address] [place] [address] Johnny Penn MD 4055 [facility] [place] [address] Scheduled Procedures Name Priority Associated Diagnoses Date/Ti tn ESOPHAGOGASTRODUODENOSCOPY Eosinophilic esophagitis Esophageal dysphagia 03/07/2024 9:00 AM CDT documented as of this encounter Results * Asymptomatic COVID-19 Virus (Coronavirus) by PCR (01/09/2021 10:44 AM CDT) COVID-19 Virus PCR to [facility] - Source Nasopharyngeal 01/09/2021 10:[address] [facility] COVID-19 Virus PCR to [facility] - Result Test received-See reflex to IDDL test SARS CoV2 (COVID-19) Virus RT-PCR 01/09/2021 6:32 PM CDT INFECTIOUS DISEASES [facility], [facility] Specimen from nasopharyngeal structure (specimen) 01/09/2021 10:44 AM CDT 01/09/2021 10:45 AM CDT Saurabh Marcial MD LAB - MICRO GENE RAL ORDERABLES INFECTIOUS DISEASES [facility]NO[facility], [facility] [address] [place] [address], [facility] [address] [place] [address], [facility] [phone] documented in this encounter Visit Diagnoses Diagnosis [...] Out COVID-19 07/13/2021 07/13/2021 07/14/2021 3:04 PM REAMING MACHINE OPERATOR FOR PLASTIC Rule Out COVID-19 07/18/2021 07/18/2021 07/20/2021 1:56 PM REAMING MACHINE OPERATOR FOR PLASTIC COVID-19 07/18/2021 07/18/2021 08/08/2021 11:3 9 PM REAMING MACHINE OPERATOR FOR PLASTIC Rule Out COVID-19 12/18/2021 12/18/2021 12/19/2021 11:34 AM CDT Rule Out COVID-19 02/24/2022 02/24/2022 02/25/2022 1:08 PM CDT Rule Out COVID-19 04/26/2022 04/26/2022 04/26/2022 6:47 AM CDT Rule Out COVID-19 05/17/2022 05/17/2022 05/17/2022 10:20 PM REAMING MACHINE OPERATOR FOR PLASTIC Rule Out COVID-19 06/09/2022 06/09/2022 06/09/2022 9:35 AM REAMING MACHINE OPERATOR FOR PLASTIC COVID-19 06/09/2022 06/09/2022 06/30/2022 11:4 1 PM REAMING MACHINE OPERATOR FOR PLASTIC Rule Out COVID-19 11/10/2022 11/10/2022 11/11/2022 12:17 PM CDT Rule Out COVID-19 03/07/2023 03/07/2023 03/07/2023 1:20 PM CDT Rule Out COVID-19 12/26/2023 12/26/2023 12/26/2023 9:50 AM CDT Assessment Noted Time PHQ-9 Depression Total Score: 6 09/30/19 3:25 PM CDT documented as of this encounter Care Teams Canine Service Instructor Trainer Relationship Specialty Start Date End Date Marija Edgar APRN FISHERMAN HELPER PCP - General Nurse Practitioner 04/30/20 04/14/23 Esha Grimm PA-C [address] [place] [phone] PCP - General Family Medicine 05/04/23 Lita Oseguera Personal Advocate & Liaison (PAL) 02/28/20 03/27/23 Chanelle Mccann APRN CNM [address] [place] [address] 598357 Assigned OBGYN Provider 05/02/2005/09 Kyara De La Fuente, RN Specialty Community Engagement Manager Neurology 06/04/20 03/05/21 Marija Edgar APRN FISHERMAN HELPER Assigned PCP 06/08/20 04/29/23 Mynor Broussard MD [address] 846855 Assigned Surgical Provider 06/01/20 11/28/21 Keisha Dotson MD 909 [place], [place] 710355 Assigned Neuroscience Provider 06/04/20 04/01/23 Galo Burrell MD Assigned Heart and Vascular Provider 10/05/20 04/02/22 Cristina Wood Financial Resource Worker 02/09/21 02/09/21 Diana Desir, [facility] [address] [place] [address] Pharmacist Pharmacist 04/17/21 Rain Galaviz PA-C [address] [place] [address] [place] [address] Physician Narrow Fabric Calenderer Dermatology 04/28/21 Summer Lara MD 606 [facility] [place] [address] Assigned OBGYN Provider 05/10/2105/23 Summer Lara MD 606 [facility] [address] [place], [place] 219324 Assigned OBGYN Provider 05/31/21 2 Summer Lara MD [address] [place] [address] Assigned OBGYN Provider 05/24/2105/30 Tavia Wyatt MD [address] [place] [address] Dermatology 07/14/21 Johnny Murillo MD [address] [facility] [address] [place] [address] Assigned Musculoskeletal Provider 08/30/21 03/17/22 Ercia Farrell APRN FISHERMAN HELPER 6405 [facility] [address] [place], [place] 0[address] Nurse Practitioner Cardiovascular Disease 09/09/21 Teresita Bean [facility] [address] [facility] [address] [place] [phone] Pharmacist Pharmacist 09/24/21 09/29/21 Tavia Wyatt MD Assigned Surgical Provider 11/29/21 05/07/22 Diana Desir, [facility] [address] [place] [address] Assigned MTM Pharmacist 01/02/22 Rich Barrett MD [address] 0568[address] Physician Ophthalmology 01/21/22 Neil Kent MD 500 [place] [address] Dermatology 02/24/22 Roney Story DPM [address] [facility] [address] [place] [address] Assigned Musculoskeletal Provider 03/20/22 08/13/22 Erica Farrell APRN FISHERMAN HELPER 1700 [place] [address] Assigned Heart and Vascular Provider 04/03/22 04/16/22 Diana Desir, [facility] [address] [place] [address] Assigned MTM Pharmacist 04/07/22 Jelena David OD 3305 [facility] [place] [address] Assigned Surgical Provider 05/08/22 10/08/22 Galo Burrell MD Assigned Heart and Vascular Provider 04/17/22 06/11/22 Livan Sharif MD [address], [facility] [address] [place] 65[address] Cardiovascular Disease 05/14/22 Livan Sharif MD [address], [facility] [address] [place] [address]325 Assigned Heart and Vascular Provider 06/12/22 07/23/22 Catherine Cm MD [address] [facility] [address] [place] [address] Cardiovascular Disease 07/21/22 Valery Veronica, PA-C 909 [place], [place] [address] Physician Narrow Fabric Calenderer Dermatology 07/21/22 Catherine Cm MD [address] [place] 9[address]65 Assigned Heart and Vascular Provider 07/24/22 11/05/22 Johnny Muirllo MD [address] [place] [address] 995384 Assigned Musculoskeletal Provider 08/14/22 10/08/22 Brea Quinn APRN FISHERMAN HELPER 500 [place] [address] Nurse Practitioner Dermatology 09/21/22 Brea Quinn APRN FISHERMAN HELPER 6401 [place] [address] Assigned Surgical Provider 10/09/22 [place] [address] [facility] 300 [place] [address] Assigned Musculoskeletal Provider 10/09/22 Livan Sharif MD [address], [facility] [address] [place] [address] Assigned Heart and Vascular Provider 11/06/22 11/12/22 Catherine Cm MD [address] [facility] [address] [place] [address] Assigned Heart and Vascular Provider 11/13/22 05/27/23 Sydnie Martinez RN Personal Advocate & Liaison (PAL) Family Medicine 03/28/23 07/31/23 Alfonso Renteria MD 5775 [facility] 200 [place], [place] 246286 Assigned Neuroscience Provider 04/02/23 Cheng Todd PA-C [address] [place] [address] Assigned PCP 04/30/23 07/15/23 Radha Lomeli APRN FISHERMAN HELPER 6405 [facility] [address] [place] [address] Assigned Heart and Vascular Provider 05/28/23 Jelena David OD [address] [facility] [place] [address] MD Ophthalmology 06/15/23 Pao Joseph, VJ Personal Advocate & Liaison (PAL) Nurse 08/01/23 11/07/23 Esha Grimm PA-C [address] [place] [phone] Assigned PCP 07/16/23 Valery Veronica PA-C [address] [place] [address] 413795 Physician Narrow Fabric Calenderer Dermatology 09/19/23 Rey Tay MD [address] [place] [address] 001715 MD Gastroenterology 09/20/23 Rocky Zepeda DO [address] [place] [address] 867745 Physician Gastroenterology 09/20/23 Philip Dumont MD [address] [place] [address] 158385 Physician Ophthalmology 09/22/23 Meredith Carrera PA-C [address] [place] [address] 792605 Assigned Gastroenterology Provider 11/01/23 Neil Kent MD [address] [address] Dermatology 11/02/23 [place] [address] [place] [address] Neurological Surgery 12/26/23 documented as of this encounter
--- OUTSIDE RECORDS SUMMARY | 2024-02-12 05:53 | XMS_ITS | Encounter Summary ---
Author Organization [place] Address [address] [place] [address] Care Team Providers Care Rehabilitation Coordinator Name Role Phone Lita Oseguera Unavailable Unavailable Marija Edgar APRN STEEL PLATE CAULKER Primary Care Provider Chanelle Gutierrez APRN CNM Unavailab le Kyara De La Fuente RN Unavailable [phone] Marija Edgar APRN STEEL PLATE CAULKER Unavailable Unavail able Mynor Broussard MD Unavailable [phone] Keisha Dotson MD Unavailable [phone] Stacey Briones LABORER HOISTING Unavailable [phone] Lesley Moody CHW Unavailable Mary Mejia Unavailable Unavailable Lita Oseguera Unavailable Unavailable Galo Burrell MD Unavailable Unavailable Cristina Wood Unavailable Lesley Moody CHW Unavailable Meredith Bedoya Unavailable Unavailable Cristina Wood Unavailable Diana Desir [facility] Unavailable Rian Galaviz PA-C Unavailable Summer Lara MD Unavailable [phone] Summer Lara MD Unavailable [phone] Summer Lara MD Unavailable + [phone] Tavia Wyatt MD Unavailable Unavailable SemJohnny mckeon MD Unavailable +1- Erica Farrell SUPERVISOR CUTTING AND BONING STEEL PLATE CAULKER Unavailable + BeanTeresita H Unavailable Tavia Wyatt MD Unavailable Unavailable Diana Desir [facility] Unavailable +[phone] Rich Barrett MD Unavailable + Neil Kent MD Unavailable + Roney Story DPM Unavailable +[phone] Erica Farrell SUPERVISOR CUTTING AND BONING STEEL PLATE CAULKER Unavailable + Diana Desir [facility] Unavailable +[phone] Jelena David Radha Unavailable [phone] Galo Burrell MD Unavailable Unavailable Livan Sharif MD Unavailable + Livan Sharif MD Unavailable + Catherine Cm MD Unavailable + Valery Veronica PA-C Unavailable +[phone] Catherine Cm MD Unavailable + Johnny Murillo MD Unavailable +1- Brea Quinn SUPERVISOR CUTTING AND BONING STEEL PLATE CAULKER Unavailable +1- Brea Quinn SUPERVISOR CUTTING AND BONING STEEL PLATE CAULKER Unavailable [phone] Jose Francisco Johnson MD Unavailable + Livan Sharif MD Unavailable + Catherine Cm MD Unavailable + Sydnie Martinez RN Unavailable Unavailable Alfonso Renteria MD Unavailable +- [phone] Esha Grimm PA-C Primary Care Provider Cheng Todd PA-C Unavailable Radha Lomeli APRN STEEL PLATE CAULKER Unavailable [phone] Jelena David OD Unavailable Pao Joseph RN Unavailable Unavailable Esha Grimm PAUcheC Unavailable [phone] Valery Veronica PA-C Unavailable +[phone] Rey Tay MD Unavailable Rocky Zepeda DO Unavailable Philip Dumont MD Unavailable [phone] Meredith Carrera PA-C Unavailable [phone] Neil Kent MD Unavailable Juan Pablo Emmanuel MD Unavailable [phone] Reason for Visit * Reason Onset Date Comments MyChart Communication 09/02/2020 Encounter Details Date Type Department Care Team (Latest Contact Info) Description 09/02/2020 MyC Medical Advice [address] [address] Marija Edgar APRN STEEL PLATE CAULKER MyChart Communication Social History Tobacco Use Types [...] do you attend chur or jainism services? More than 4 times per year [...] Answer Date Recorded PHQ-2 Score 0 08/12/2020 [facility] - Occupational [...] COVID-19? No / Unsure 09/05/2020 2:50 PM CORK CUTTER documented as of this encounter Miscellaneous Notes * Telephone Encounter - Ever Cardozo MA - 09/03/2020 10:34 AM CST Responded to patient as below. Ever Cardozo CMA ([facility]) CUTTER documented in this encounter Plan of Treatment Upcoming Encounters Date Type Department Care Team (Latest Contact Info) Description 02/14/2024 12:50 PM CDT Therapy Visit [facility] Rehabilitation Services [place] [address] [place] [phone] Rustam Medina, [facility] [address] [place] [address] 03/06/2024 3:00 PM CDT Office Visit [facility] [address] [facility] [address] [place] [phone] Radha Lomeli, SUPERVISOR CUTTING AND BONING STEEL PLATE CAULKER [address] [place] [address] 03/07/2024 9:00 AM CDT Hospital Encounter [address] [place] [phone] Rocky Zepeda DO 500 [place], [place] [address] 03/07/2024 9:00 AM CDT - 03/07/2024 9:30 AM CDT Surgery [address]th [place] [phone] Rocky Zepeda DO 500 [place], [place] [address] Esophagoscopy, gastroscopy, duodenoscopy (EGD), combined 06/21/2024 2:00 PM CORK CUTTER Office Visit [facility] Neurology Clinics - [place] [address] [facility], [address] [place] [phone] [place] [address] [place], [place] [address] Johnny Penn MD [address] [address] Scheduled Procedures Name Priority Associated Diagnoses Date/Ti [...] Out COVID-19 07/13/2021 07/13/2021 07/14/2021 3:04 PM CORK CUTTER Rule Out COVID-19 07/18/2021 07/18/2021 07/20/2021 1:56 PM CORK CUTTER COVID-19 07/18/2021 07/18/2021 08/08/2021 11:3 9 PM CORK CUTTER Rule Out COVID-19 12/18/2021 12/18/2021 12/19/2021 11:34 AM CDT Rule Out COVID-19 02/24/2022 02/24/2022 02/25/2022 1:08 PM CDT Rule Out COVID-19 04/26/2022 04/26/2022 04/26/2022 6:47 AM CDT Rule Out COVID-19 05/17/2022 05/17/2022 05/17/2022 10:20 PM CORK CUTTER Rule Out COVID-19 06/09/2022 06/09/2022 06/09/2022 9:35 AM CORK CUTTER COVID-19 06/09/2022 06/09/2022 06/30/2022 11:4 1 PM CORK CUTTER Rule Out COVID-19 11/10/2022 11/10/2022 11/11/2022 12:17 PM CDT Rule Out COVID-19 03/07/2023 03/07/2023 03/07/2023 1:20 PM CDT Rule Out COVID-19 12/26/2023 12/26/2023 12/26/2023 9:50 AM CDT Assessment Noted Time PHQ-9 Depression Total Score: 9 06/25/20 20 7:04 AM CORK CUTTER documented as of this encounter Care Teams Rehabilitation Coordinator Relationship Specialty Start Date End Date Marija Edgar APRN STEEL PLATE CAULKER PCP - General Nurse Practitioner 04/30/20 04/14/23 Esha Grimm, PAUcheC [address] [place] [phone] PCP - General Family Medicine 05/04/23 Lita Oseguera Personal Advocate & Liaison (PAL) 02/28/20 03/27/23 Chanelle Mccann APRN CNM [address] [facility] [address] [place] [address] Assigned OBGYN Provider 05/02/2005/09 Kyara De La Fuente, RN Specialty Automatic Spooler Operator Neurology 06/04/20 03/05/21 Marija Edgar APRN STEEL PLATE CAULKER Assigned PCP 06/08/20 04/29/23 Mynor Broussard MD [address] [facility] 500 [place] [address] Assigned Surgical Provider 06/01/20 11/28/21 Keisha Dotson MD 909 [place] [address] Assigned Neuroscience Provider 06/04/20 04/01/23 Stacey Briones, LABORER HOISTING Lead Automatic Spooler Operator Primary Care - CC 08/11/2012/30 Lesley [...] Wood Financial Resource Worker 02/09/21 02/09/21 [facility] [address] [place] [address] Pharmacist Pharmacist 04/17/21 Rain Galaviz PA-C [address] [place] [address] [address] [place], [place] [phone] Physician Dialysis Tech Dermatology 04/28/21 Summer Lara MD [address] [place] [address] 623334 Assigned OBGYN Provider 05/10/2105/23 Summer Lara MD [address] [place] [address] 786184 Assigned OBGYN Provider 05/31/21 2 Summer Lara MD [address] [place] [address] Assigned OBGYN Provider 05/24/2105/30 Tavia Wyatt MD [address] [place] [address] Dermatology 07/14/21 Johnny Murillo MD [address] [place] [address] Assigned Musculoskeletal Provider 08/30/21 03/17/22 Erica Farrell APRN STEEL PLATE CAULKER [address] [place] [address] Nurse Practitioner Cardiovascular Disease 09/09/21 Teresita Bean, [facility] [address] [facility] [address] [place] [id number] Pharmacist Pharmacist 09/24/21 09/29/21 Tavia Wyatt MD Assigned Surgical Provider 11/29/21 05/07/22 Diana Desir, [facility] 3033 [place] [address] Assigned MTM Pharmacist 01/02/22 Rich Barrett MD [address] [facility], [facility] [address] [place], [place] 3[address] Physician Ophthalmology 01/21/22 Neil Kent MD 500 [place] [address] Dermatology 02/24/22 Roney Story DPM [address] [facility] 300 [place] [address] Assigned Musculoskeletal Provider 03/20/22 08/13/22 Erica Farrell APRN STEEL PLATE CAULKER 1700 [place] [address] Assigned Heart and Vascular Provider 04/03/22 04/16/22 [facility] 3033 [place] [address] Assigned MTM Pharmacist 04/07/22 [place] [address] [place] [address] Assigned Surgical Provider 05/08/22 10/08/22 Galo Burrell MD Assigned Heart and Vascular Provider 04/17/22 06/11/22 Livan Sharif MD [address] [facility] [address] [place] [address] Cardiovascular Disease 05/14/22 Livan Sharif MD [address] [facility] [address] [place] 95[address]45 Assigned Heart and Vascular Provider 06/12/22 07/23/22 Catherine Cm MD [address] [place] [address]35 Cardiovascular Disease 07/21/22 Valery Veronica, PAUcheC 909 [place], [place] [address] Physician Dialysis Tech Dermatology 07/21/22 Catherine Cm MD [address] [place] [address] [place] [address] Assigned Heart and Vascular Provider 07/24/22 11/05/22 Johnny Murillo MD [address] [place] [address] Assigned Musculoskeletal Provider 08/14/22 10/08/22 Brea Quinn APRN STEEL PLATE CAULKER [address] [place] [address] 220555 Nurse Practitioner Dermatology 09/21/22 Brea Quinn APRN STEEL PLATE CAULKER [address] [place] [address] Assigned Surgical Provider 10/09/22 [place] [address] [address] Assigned Musculoskeletal Provider 10/09/22 Livan Sharif MD [address] [place] [address] [place] [address] Assigned Heart and Vascular Provider 11/06/22 11/12/22 Catherine Cm MD [address] [place] [address] [place] [address] Assigned Heart and Vascular Provider 11/13/22 05/27/23 Sydnie Martinez RN Personal Advocate & Liaison (PAL) Family Medicine 03/28/23 07/31/23 Alfonso Renteria MD [address] [facility] [address] 200 [place] [address] Assigned Neuroscience Provider 04/02/23 Cheng Todd PA-C [address] [place] [address] [id number] Assigned PCP 04/30/23 07/15/23 Radha Lomeli APRN STEEL PLATE CAULKER [address] [facility] [address] [place], [place] 7[address]175 Assigned Heart and Vascular Provider 05/28/23 Jelena David OD [address] [facility] [address] [place] [phone] Ophthalmology 06/15/23 Pao Joseph, VJ Personal Advocate & Liaison (PAL) Nurse 08/01/23 11/07/23 Esha Grimm PA-C [address] [place] [address] Assigned PCP 07/16/23 Valery Veronica PA-C [address] [place] [address] 154955 Physician Dialysis Tech Dermatology 09/19/23 Rey Tay MD [address] [place] [address] 644815 Gastroenterology 09/20/23 Rocky Zepeda DO [address] [place] [address] [phone] Physician Gastroenterology 09/20/23 Philip Dumont MD 516 [place], [place] 860[address] Physician Ophthalmology 09/22/23 Meredith Carrera PA-C 9 [place], [place] 0[address] Assigned Gastroenterology Provider 11/01/23 Neil Kent MD [address] [address] Dermatology 11/02/23 [place] [address] [place] [address] Neurological Surgery 12/26/23 documented as of this encounter
--- OUTSIDE RECORDS SUMMARY | 2024-02-12 05:53 | XMS_ITS | Encounter Summary ---
Author Organization [place] Address [address] [place] [address] Care Team Providers Care Drafting Layout Man Name Role Phone Lita Oseguera Unavailable Unavailable Marija Edgar APRN CLINICAL REHABILITATION AIDE Primary Care Provider Chanelle Gutierrez APRN CNM Unavailab le Kyara De La Fuente RN Unavailable [phone] Mariaj Edgar APRN CLINICAL REHABILITATION AIDE Unavailable Unavail able Mynor Broussard MD Unavailable [phone] Keisha Dotson MD Unavailable Stacey Briones SUPPORT SPECIALIST Unavailable Lesley Moody CHW Unavailable [phone] Mary Mejia Unavailable Unavailable Lita Oseguera Unavailable Unavailable Galo Burrell MD Unavailable Unavailable Cristina Wood Unavailable Lesley Moody CHW Unavailable [phone] Meredith Bedoya Unavailable Unavailable Cristina Wood Unavailable Diana Desir [facility] Unavailable Rain Galaviz PA-C Unavailable [phone] Summer Lara MD Unavailable [phone] Summer Lara MD Unavailable [phone] Summer Lara MD Unavailable + [phone] Tavia Wyatt MD Unavailable Unavailable SemJohnny mckeon MD Unavailable +1- Erica Farrell RELAY ASSOCIATE CLINICAL REHABILITATION AIDE Unavailable + BeanTeresita H Unavailable Tavia Wyatt MD Unavailable Unavailable Diana Desir [facility] Unavailable +1 [phone] Rich Barrett MD Unavailable + Neil Kent MD Unavailable + Roney Story DPM Unavailable [phone] Erica Farrell RELAY ASSOCIATE CLINICAL REHABILITATION AIDE Unavailable + Diana Desir [facility] Unavailable +[phone] Jelena David Radha Unavailable [phone] Galo Burrell MD Unavailable Unavailable Livan Sharif MD Unavailable + Livan Sharif MD Unavailable + Catherine Cm MD Unavailable + Valery Veronica PA-C Unavailable +[phone] Catherine Cm MD Unavailable + Johnny Murillo MD Unavailable +1- Brea Quinn RELAY ASSOCIATE CLINICAL REHABILITATION AIDE Unavailable +1- Brea Quinn RELAY ASSOCIATE CLINICAL REHABILITATION AIDE Unavailable [phone] Jose Francisco Johnson MD Unavailable + Livan Sharif MD Unavailable + Catherine Cm MD Unavailable + Sydnie Martinez RN Unavailable Unavailable Alfonso Renteria MD Unavailable +[phone] Esha Grimm PA-C Primary Care Provider Cheng Todd PA-C Unavailable Radha Lomeli APRN CLINICAL REHABILITATION AIDE Unavailable [phone] Jelena David OD Unavailable [phone] Pao Joseph RN Unavailable Unavailable Esha GrimmC Unavailable [phone] Valery Veronica PA-C Unavailable [phone] Rey Tay MD Unavailable Rocky Zepeda DO Unavailable Philip Dumont MD Unavailable [phone] Meredith CarreraC Unavailable [phone] Neil Kent MD Unavailable Juan Pablo Emmanuel MD Unavailable [phone] Encounter Details Date Type Department Care Team (Late st Contact Info) Description 09/02/2020 [facility] Care Coordination [address] [place] [phone] Mary Mejia Social History Tobacco Use [...] Answer Date Recorded PHQ-2 Score 0 08/12/2020 [facility]at [facility] [...] COVID-19? No / Unsure 09/05/2020 2:50 PM STOCK RECEIVER documented as of this encounter Plan of Treatment Upcoming Encounters Date Type Department Care Team (Latest Contact Info) Description 02/14/2024 12:50 PM CDT Therapy Visit [facility] Services [place] [address] [place] [address] Rustam Medina, PT [facility] [address] [place] [address] 03/06/2024 3:00 PM CDT Office Visit [facility] Heart [address] [place] [phone] Radha Lomeli, RELAY ASSOCIATE CLINICAL REHABILITATION AIDE [address] [place] [address]015 03/07/2024 9:00 AM CDT Hospital Encounter [facility] OR [address] 5th [place] [phone] Rocky Zepeda DO 500 [place], [place] [address] 03/07/2024 9:00 AM CDT - 03/07/2024 9:30 AM CDT Surgery [facility] OR [address]th [place] [phone] Rocky Zepeda DO 500 [place], [place] [address] Esophagoscopy, gastroscopy, duodenoscopy (EGD), combined 06/21/2024 2:00 PM STOCK RECEIVER Office Visit [facility] Neurology Clinics - [place] [address] [place] [address], [address] [place] [phone] [place] [address] [address] [place], [place] 119[address] Johnny Penn MD [address] [place] 718655 Scheduled Procedures Name Priority Associated Diagnoses Date/Ti [...] Out COVID-19 07/13/2021 07/13/2021 07/14/2021 3:04 PM STOCK RECEIVER Rule Out COVID-19 07/18/2021 07/18/2021 07/20/2021 1:56 PM STOCK RECEIVER COVID-19 07/18/2021 07/18/2021 08/08/2021 11:3 9 PM STOCK RECEIVER Rule Out COVID-19 12/18/2021 12/18/2021 12/19/2021 11:34 AM CDT Rule Out COVID-19 02/24/2022 02/24/2022 02/25/2022 1:08 PM CDT Rule Out COVID-19 04/26/2022 04/26/2022 04/26/2022 6:47 AM CDT Rule Out COVID-19 05/17/2022 05/17/2022 05/17/2022 10:20 PM STOCK RECEIVER Rule Out COVID-19 06/09/2022 06/09/2022 06/09/2022 9:35 AM STOCK RECEIVER COVID-19 06/09/2022 06/09/2022 06/30/2022 11:4 1 PM STOCK RECEIVER Rule Out COVID-19 11/10/2022 11/10/2022 11/11/2022 12:17 PM CDT Rule Out COVID-19 03/07/2023 03/07/2023 03/07/2023 1:20 PM CDT Rule Out COVID-19 12/26/2023 12/26/2023 12/26/2023 9:50 AM CDT Assessment Noted Time PHQ-9 Depression Total Score: 9 06/25/20 20 7:04 AM STOCK RECEIVER documented as of this encounter Care Teams Drafting Layout Man Relationship Specialty Start Date End Date Marija Edgar APRN CLINICAL REHABILITATION AIDE PCP - General Nurse Practitioner 04/30/20 04/14/23 Esha Grimm PA-C [address] [place] [phone] PCP - General Family Medicine 05/04/23 Lita Oseguera Personal Advocate & Liaison (PAL) 02/28/20 03/27/23 Chanelle Mccann APRN CNM [address] [address] [facility], [facility] 200 [place] [address] Assigned OBGYN Provider 05/02/2005/09 Kyara De La Fuente, RN Specialty Corn Shucker Neurology 06/04/20 03/05/21 Marija Edgar APRN CLINICAL REHABILITATION AIDE Assigned PCP 06/08/20 04/29/23 Mynor Broussard MD 6[address] [facility] 500 [place] [address] Assigned Surgical Provider 06/01/20 11/28/21 Keisha Dotson MD 909 [place] [address] Assigned Neuroscience Provider 06/04/20 04/01/23 Stacey Briones, [facility] Lead Corn Shucker Primary Care - CC 08/11/2012/30 Lesley Moody, [facility] Community Health Worker 08/11/2010/01 Mary Mejia Financial Resource Worker 09/02/20 10/06/20 Lita Oseguera Personal Advocate & Liaison (PAL) Family Medicine 09/10/20 09/21/20 Galo Burrell MD Assigned Heart and Vascular Provider 10/05/20 04/02/22 Cristina Wood Financial Resource Worker 10/07/20 10/14/20 Lesley Moody, [facility] Community Health Worker 10/23/2012/30 Meredith Bedoya Financial Resource Worker 10/23/20 11/23/20 Cristina Wood Financial Resource Worker 02/09/21 02/09/21 Diana Desir, [facility] [address] [place] [address] Pharmacist Pharmacist 04/17/21 Rian Galaviz PA-C [address] [facility] [address] [place], [place] [id number] Physician Roll Up Helper Dermatology 04/28/21 Summer Lara MD [address] [place] [address] Assigned OBGYN Provider 05/10/2105/23 Summer Lara MD [address] [place], [place] [address] Assigned OBGYN Provider 05/31/21 2 Summer Lara MD [address] [place] [address] Assigned OBGYN Provider 05/24/2105/30 Tavia Wyatt MD [address] [place] [address] Dermatology 07/14/21 Johnny Murillo MD [address] [facility] [address] [place] [address] Assigned Musculoskeletal Provider 08/30/21 03/17/22 Erica Farrell APRN CLINICAL REHABILITATION AIDE [address] [facility] [address] [place] [address] Nurse Practitioner Cardiovascular Disease 09/09/21 Teresita Bean, [facility] [address] [place] [address] Pharmacist Pharmacist 09/24/21 09/29/21 Tavia Wyatt MD Assigned Surgical Provider 11/29/21 05/07/22 Diana Desir, [facility] 3033 [place] [address] Assigned MTM Pharmacist 01/02/22 Rich Barrett MD [address] 8228[address] Physician Ophthalmology 01/21/22 Neil Kent MD 500 [place], [place] [phone] Dermatology 02/24/22 Roney Story DPM [address] [facility] [address] [place] [address] Assigned Musculoskeletal Provider 03/20/22 08/13/22 Erica Farrell APRN CLINICAL REHABILITATION AIDE 1700 [place] [address] Assigned Heart and Vascular Provider 04/03/22 04/16/22 Diana Desir, [facility] [address] [place], [place] 84[address] Assigned MTM Pharmacist 04/07/22 Jelena David OD [address] [place] [address] Assigned Surgical Provider 05/08/22 10/08/22 Galo Burrell MD Assigned Heart and Vascular Provider 04/17/22 06/11/22 Livan Sharif MD [address] [place] [address] Cardiovascular Disease 05/14/22 Livan Sharif MD [address], [address] [place] [address] Assigned Heart and Vascular Provider 06/12/22 07/23/22 Catherine Cm MD [address] [place] [address] Cardiovascular Disease 07/21/22 Valery Veronica PAUcheC 9 [place], [place] [address] Physician Roll Up Helper Dermatology 07/21/22 Catherine Cm MD [address] [place] [address] Assigned Heart and Vascular Provider 07/24/22 11/05/22 Johnny Murillo MD [facility] [place] [address] [place] [address] Assigned Musculoskeletal Provider 08/14/22 10/08/22 Brea Quinn APRN CLINICAL REHABILITATION AIDE 500 [facility] [place] [address] Nurse Practitioner Dermatology 09/21/22 Brea Quinn APRN CLINICAL REHABILITATION AIDE 6401 [place] [address] Assigned Surgical Provider 10/09/22 [place] [address] [address] Assigned Musculoskeletal Provider 10/09/22 Livan Sharif MD [address], [facility] [address] [place] [address] Assigned Heart and Vascular Provider 11/06/22 11/12/22 Catherine Cm MD [address] [facility] [address] [place], [place] [address] Assigned Heart and Vascular Provider 11/13/22 05/27/23 Sydnie Martinez RN Personal Advocate & Liaison (PAL) Family Medicine 03/28/23 07/31/23 Alfonso Renteria MD 5775 [facility] 200 [place] [address] Assigned Neuroscience Provider 04/02/23 Cheng Todd PA-C [address] [place] [address] Assigned PCP 04/30/23 07/15/23 Radha Lomeli APRN CLINICAL REHABILITATION AIDE [address] [place] [address] Assigned Heart and Vascular Provider 05/28/23 Jelena David OD [address] [place] [address] MD Ophthalmology 06/15/23 Pao Joseph, VJ Personal Advocate & Liaison (PAL) Nurse 08/01/23 11/07/23 Esha rGimm PA-C [address] [place] [phone] Assigned PCP 07/16/23 Valery Veronica PA-C [address] [place] [address] 238575 Physician Roll Up Helper Dermatology 09/19/23 Rey Tay MD [address] [place] [address] 786405 MD Gastroenterology 09/20/23 Rocky Zepeda DO [address] [place] [address] 881745 Physician Gastroenterology 09/20/23 Philip Dumont MD [address] [place] [address] 502035 Physician Ophthalmology 09/22/23 Meredith Carrera PA-C [address] [place] [address] 990115 Assigned Gastroenterology Provider 11/01/23 Neil Kent MD [address] [address] Dermatology 11/02/23 [place] [address] [place] [address] 110787 Neurological Surgery 12/26/23 documented as of this encounter
--- OUTSIDE RECORDS SUMMARY | 2024-02-12 05:53 | XMS_ITS | Encounter Summary ---
Author Organization [facility] Address [address] [place] [address] Care Team Providers Care Care Process Manager Name Role Phone Lita Oseguera Unavailable Unavailable Marija Edgar KILN PUSHER SONG PLUGGER Primary Care Provider Chanelle Gutierrez KILN PUSHER CNM Unavailab le Kyara De La Fuente RN Unavailable Marija Edgar APRN SONG PLUGGER Unavailable Unavail able Mynor Broussard MD Unavailable [phone] Keisha Dotson MD Unavailable Galo Burrell MD Unavailable Unavailable Cristina Wood Unavailable Diana Desir [facility] Unavailable Rian Galaviz PA-C Unavailable Summer Lara MD Unavailable [phone] Summer Lara MD Unavailable [phone] Summer Lara MD Unavailable [phone] Tavia Wyatt MD Unavailable Unavailable Johnny Murillo MD Unavailable Erica Farrell APRN SONG PLUGGER Unavailable Teresita Bean [facility] Unavailable Tavia Wyatt MD Unavailable Unavailable ThangKendrickDiana Stanislav [facility] Unavailable [phone] Rich Barrett MD Unavailable [phone] Neil Kent MD Unavailable Roney Story DPM Unavailable [phone] Erica Farrell KILN PUSHER SONG PLUGGER Unavailable + Diana Desir [facility] Unavailable [phone] Jelena David OD Unavailable [phone] Galo Burrell MD Unavailable Unavailable Livan Sharif MD Unavailable + Livan Sharif MD Unavailable + Catherine Cm MD Unavailable + Valery Veronica PA-C Unavailable [phone] Catherine Cm MD Unavailable + Johnny Murillo MD Unavailable [phone] Brea Quinn KILN PUSHER SONG PLUGGER Unavailable [phone] Brea Quinn KILN PUSHER SONG PLUGGER Unavailable [phone] Jose Francisco Johnson MD Unavailable Livan Sharif MD Unavailable + Catherine Cm MD Unavailable + Sydnie Martinez RN Unavailable Unavailable Alfonso Renteria MD Unavailable [phone] Esha Grimm PA-C Primary Care Provider Cheng Todd PA-C Unavailable [phone] Radha Lomeli KILN PUSHER SONG PLUGGER Unavailable [phone] Jelena David OD Unavailable [phone] Pao Joseph RN Unavailable Unavailable Wicho Grimmlincoln DOWC Unavailable [phone] Valery VeronicaC Unavailable [phone] Rey Tay MD Unavailable Duane Rockyanne STEVENS Unavailable Philip Dumont MD Unavailable [phone] Meredith CarreraC Unavailable [phone] Neil Kent MD Unavailable Juan Pablo Emmanuel MD Unavailable [phone] Encounter Details Date Type Department Care Team (Late st Contact Info) Description 02/06/2021 [facility] [address] [address] Bob Diop Social History Tobacco [...] you attend chur ch or church services? More than 4 times [...] Answer Date Recorded PHQ-2 Score 3 09/29/2020 [facility] [...] slept in a fpc (including now)? No 08/11/2020 [place] Depression Scale Answer Date Recorded [place] [...] Description 02/14/2024 12:50 PM CDT Therapy Visit [facility] [address] [place] [phone] Rustam Medina, PT [facility] [address] [place] [address] 03/06/2024 3:00 PM CDT Office [facility] [place] [address] [facility] [address] [place] [address] Radha Lomeli APRN SONG PLUGGER [address] [place] [address] 03/07/2024 9:00 AM CDT [facility] Encounter [facility] [place] 909 [facility] 5th [place] [phone] Rocky Zepeda DO 500 [place], [place] 13[address] 03/07/2024 9:00 AM CDT - 03/07/2024 9:[address] [facility] 9[address] [facility] 5th [place] [phone] Rocky Zepeda DO 500 [place], [place] [phone] Esophagoscopy, gastroscopy, duodenoscopy (EGD), combined 06/21/2024 2:00 PM PEANUT BLANCHER Office Visit [facility] [place] [address] [place] [address], [address] [place] [phone] [place] [address] [place], [place] [address] Johnny Penn MD [address] [place], [place] [address] Scheduled Procedures Name Priority Associated Diagnoses Date/Ti ak ESOPHAGOGASTRODUODENOSCOPY Eosinophilic esophagitis Esophageal dysphagia 03/07/2024 9:00 AM CDT documented as of this encounter Visit Diagnoses Not on filedocumented in this encounter Additional Health Concerns Infection Onset Date Last Indicated Resolved Time Rule Out COVID-19 05/11/2021 05/11/2021 05/13/2021 10:18 AM CDT Rule Out COVID-19 07/13/2021 07/13/2021 07/14/2021 3:04 PM PEANUT BLANCHER Rule Out COVID-19 07/18/2021 07/18/2021 07/20/2021 1:56 PM PEANUT BLANCHER COVID-19 07/18/2021 07/18/202108/0808/08/2021 11:3 9 PM PEANUT BLANCHER Rule Out COVID-19 12/18/2021 12/18/2021 12/19/2021 11:34 AM CDT Rule Out COVID-19 02/24/2022 02/24/2022 02/25/2022 1:08 PM CDT Rule Out COVID-19 04/26/2022 04/26/2022 04/26/2022 6:47 AM CDT Rule Out COVID-19 05/17/2022 05/17/2022 05/17/2022 10:20 PM PEANUT BLANCHER Rule Out COVID-19 06/09/2022 06/09/2022 06/09/2022 9:35 AM PEANUT BLANCHER COVID-19 06/09/2022 06/09/2022 06/30/2022 11:4 1 PM PEANUT BLANCHER Rule Out COVID-19 11/10/2022 11/10/2022 11/11/2022 12:17 PM CDT Rule Out COVID-19 03/07/2023 03/07/2023 03/07/2023 1:20 PM CDT Rule Out COVID-19 12/26/2023 12/26/2023 12/26/2023 9:50 AM CDT Assessment Noted Time PHQ-9 Depression Total Score: 6 09/30/19 3:25 PM CDT documented as of this encounter Care Teams Care Process Manager Relationship Specialty Start Date End Date Marija Edgar APRN SONG PLUGGER PCP - General Nurse Practitioner 04/30/20 04/14/23 Esha Grimm PA-C [address] [place] [phone] PCP - General Family Medicine 05/04/23 Lita Oseguera Personal Advocate & Liaison (PAL) 02/28/20 03/27/23 Chanelle Mccann APRN CNM [address] [address] Assigned OBGYN Provider 05/02/2005/09 Kyara De La Fuente, RN Specialty Chlorination Operator Neurology 06/04/20 03/05/21 Marija Edgar APRN SONG PLUGGER Assigned PCP 06/08/20 04/29/23 Mynor Broussard MD 6[address] [facility] 500 [place] [address] Assigned Surgical Provider 06/01/20 11/28/21 Keisha Dotson MD 909 [place], [place] 784115 Assigned Neuroscience Provider 06/04/20 04/01/23 Galo Burrell MD Assigned Heart and Vascular Provider 10/05/20 04/02/22 Cristina Wood Financial Resource Worker 02/09/21 02/09/21 Diana Desir, [facility] [address] [place], [place] [address] Pharmacist Pharmacist 04/17/21 Rain Galaviz PA-C [address] [place] [address] [address] [place] [address] Physician Frame Aligner Dermatology 04/28/21 Summer Lara MD [address] [place] [address] 833014 Assigned OBGYN Provider 05/10/2105/23 Summer Lara MD 606 [address], [place] 278784 Assigned OBGYN Provider 05/31/21 2 Summer Lara MD [address] [place], [place] 794484 Assigned OBGYN Provider 05/24/2105/30 Tavia Wyatt MD [address] [address] Dermatology 07/14/21 Johnny Murillo MD [address] [place], [place] 6[address] Assigned Musculoskeletal Provider 08/30/21 03/17/22 Erica Farrell APRN SONG PLUGGER 6405 [facility] [address] [place], [place] 8440[address] Nurse Practitioner Cardiovascular Disease 09/09/21 Teresita Bean [facility] [address] [place], [place] [phone] Pharmacist Pharmacist 09/24/21 09/29/21 Tavia Wyatt MD Assigned Surgical Provider 11/29/21 05/07/22 [facility] [address] [place] [address] Assigned MTM Pharmacist 01/02/22 Rich Barrett MD [address] 996165 Physician Ophthalmology 01/21/22 Neil Kent MD [address] [place] [address] Dermatology 02/24/22 [place] [address] [facility] [address] [place] [address] Assigned Musculoskeletal Provider 03/20/22 08/13/22 Erica Farrell APRN SONG PLUGGER 1700 [place] [address] Assigned Heart and Vascular Provider 04/03/22 04/16/22 Diana Desir, [facility] 3033 [place] [address] Assigned MTM Pharmacist 04/07/22 Jelena David OD 3[address] [facility] [place] [address] Assigned Surgical Provider 05/08/22 10/08/22 Galo Burrell MD Assigned Heart and Vascular Provider 04/17/22 06/11/22 Livan Sharif MD [address], [place] [address] [place] [address] Cardiovascular Disease 05/14/22 Livan Sharif MD [address], [place] [address] [place] 821325 Assigned Heart and Vascular Provider 06/12/22 07/23/22 Catherine Cm MD [address] [address] [place] 523785 Cardiovascular Disease 07/21/22 Valery Veronica, PAUcheC [address] [place] [address] Physician Frame Aligner Dermatology 07/21/22 Catherine Cm MD [address] [place] 62[address]65 Assigned Heart and Vascular Provider 07/24/22 11/05/22 Johnny Murillo MD [address] [place] [address] Assigned Musculoskeletal Provider 08/14/22 10/08/22 Brea Quinn APRN SONG PLUGGER [address] [place] [address] Nurse Practitioner Dermatology 09/21/22 Brea Quinn APRN SONG PLUGGER [address] [place] [address] Assigned Surgical Provider 10/09/22 [place] [address] [address] [address] Assigned Musculoskeletal Provider 10/09/22 Livan Sharif MD [address] [address] 47[address] Assigned Heart and Vascular Provider 11/06/22 11/12/22 Catherine Cm MD [address] [place] [address] Assigned Heart and Vascular Provider 11/13/22 05/27/23 Sydnie Martinez, VJ Personal Advocate & Liaison (PAL) Family Medicine 03/28/23 07/31/23 Alfonso Renteria MD [address] [facility] [address] 200 [place] [address] Assigned Neuroscience Provider 04/02/23 Cheng Todd PA-C [address] [place] [address] [phone] Assigned PCP 04/30/23 07/15/23 Radha Lomeli APRN SONG PLUGGER 6405 [facility] [address] [place] [address] Assigned Heart and Vascular Provider 05/28/23 Jelena David OD [address] [facility] [place] [address] Ophthalmology 06/15/23 Pao Joseph, VJ Personal Advocate & Liaison (PAL) Nurse 08/01/23 11/07/23 Esha Grimm PA-C [address] [place] [phone] Assigned PCP 07/16/23 Valery Veronica PA-C [address] [place] [address] 455395 Physician Frame Aligner Dermatology 09/19/23 Rey Tay MD [address] [place] [address] 168115 Gastroenterology 09/20/23 Rocky Zepeda DO [address] [place] [address] 331895 Physician Gastroenterology 09/20/23 Philip Dumont MD [address] [place] [address] 821665 Physician Ophthalmology 09/22/23 Meredith Carrera PA-C [address] [place] [address] 007925 Assigned Gastroenterology Provider 11/01/23 Neil Kent MD [address] 856950 Dermatology 11/02/23 [place] [address] [address] [phone] Neurological Surgery 12/26/23 documented as of this encounter
--- OUTSIDE RECORDS SUMMARY | 2024-02-12 05:53 | XMS_ITS | Encounter Summary ---
Author Organization [facility] Address [address] [place] [address] Care Team Providers Care Equipment Application Specialist Name Role Phone Lita Oseguera Unavailable Unavailable Marija Edgar APRN ASSOCIATE JUSTICE Primary Care Provider Chanelle Gutierrez APRN CN Unavailab le Marija Edgar APRN ASSOCIATE JUSTICE Unavailable Unavail able Mynor Broussard MD Unavailable [phone] Keisha Dotson MD Unavailable [phone] Galo Burrell MD Unavailable Unavailable Diana Desir [facility] Unavailable Rain Galaviz PA-C Unavailable Summer Lara MD Unavailable [phone] Summer Lara MD Unavailable [phone] Summer Lara MD Unavailable [phone] Tavia Wyatt MD Unavailable Unavailable Johnny Murillo MD Unavailable Erica Farrell APRN ASSOCIATE JUSTICE Unavailable Teresita Bean [facility] Unavailable [phone] Tavia Wyatt MD Unavailable Unavailable Diana Desir [facility] Unavailable [phone] Rich Barrett MD Unavailable [phone] Neil Kent MD Unavailable Roney Story DPM Unavailable Erica Farrell VACCINE KEY CUSTOMER LEADER ASSOCIATE JUSTICE Unavailable ThangDiana [facility] Unavailable Jelena David OD Unavailable Galo Burrell MD Unavailable Unavailable HoLivan MD Unavailable Livan Sharif MD Unavailable Catherine Cm MD Unavailable + Valery Veronica PA-C Unavailable [phone] Catherine Cm MD Unavailable + Johnny Murillo MD Unavailable [phone] Brea Quinn VACCINE KEY CUSTOMER LEADER ASSOCIATE JUSTICE Unavailable [phone] Brea Quinn VACCINE KEY CUSTOMER LEADER ASSOCIATE JUSTICE Unavailable [phone] Jose Francisco Johnson MD Unavailable Livan Sharif MD Unavailable IsCatherine hobbs MD Unavailable + Sydnie Martinez RN Unavailable Unavailable Alfonso Renteria MD Unavailable Esha Grimm-C Primary Care Provider Cheng Todd PA-C Unavailable Radha Lomeli VACCINE KEY CUSTOMER LEADER ASSOCIATE JUSTICE Unavailable Jelena David OD Unavailable Pao Joseph RN Unavailable Unavailable Esha Grimm-C Unavailable [phone] Valery Veronica PA-C Unavailable Rey Tay MD Unavailable Rocky Zepeda DO Unavailable Philip Dumont MD Unavailable [phone] Meredith Carrera PA-C Unavailable [phone] Neil Kent MD Unavailable Juan Pablo Emmanuel MD Unavailable [phone] Encounter Details Date Type Department Care Team (Late st Contact Info) Description 04/17/2021 [facility] Advice [address] [address] Diana Desir, [facility] [address] [place] [address] Social History Tobacco Use Types Packs/Day Years [...] you attend chur ch or jain services? More than 4 times [...] Answer Date Recorded PHQ-2 Score 0 04/02/2021 [facility] [...] in a mcc (including now)? No 08/11/2020 [place] Depression Scale Answer Date Recorded [place] Depression Score 5 01/14/2021 Last EPDS Self [...] Description 02/14/2024 12:50 PM CDT Therapy Visit [facility] [address] [place] [phone] Rustam Medina, PT [facility] [address] [place] [address] 03/06/2024 3:00 PM CDT Office Visit [facility] [place] [address] [facility] [address] [place] [address] Radha Lomeli APRN ASSOCIATE JUSTICE [address] [place] 784075 03/07/2024 9:00 AM CDT Hospital Encounter [facility] [place] 909 [facility] 5th [place] [phone] Rocky Zepeda DO 500 [place], [place] 2[address] 03/07/2024 9:00 AM CDT - 03/07/2024 9:30 AM CDT Surgery [facility] 909 [facility] 5th [place] [phone] Rocky Zepeda DO 500 [place], [place] 637915 Esophagoscopy, gastroscopy, duodenoscopy (EGD), combined 06/21/2024 2:00 PM BONDING SUPERVISOR Office Visit [facility] [place] [address] [place] [address], [address] [place] [phone] [place] [address] [place], [place] [address] Johnny Penn MD [address] [place], [place] [address] Scheduled Procedures Name Priority Associated Diagnoses Date/Ti mt ESOPHAGOGASTRODUODENOSCOPY Eosinophilic esophagitis Esophageal dysphagia 03/07/2024 9:00 AM CDT documented as of this encounter Visit Diagnoses Not on filedocumented in this encounter Additional Health Concerns Infection Onset Date Last Indicated Resolved Time Rule Out COVID-19 05/11/2021 05/11/2021 05/13/2021 10:18 AM CDT Rule Out COVID-19 07/13/2021 07/13/2021 07/14/2021 3:04 PM BONDING SUPERVISOR Rule Out COVID-19 07/18/2021 07/18/2021 07/20/2021 1:56 PM BONDING SUPERVISOR COVID-19 07/18/2021 07/18/2021 08/08/2021 11:3 9 PM BONDING SUPERVISOR Rule Out COVID-19 12/18/2021 12/18/2021 12/19/2021 11:34 AM CDT Rule Out COVID-19 02/24/2022 02/24/2022 02/25/2022 1:08 PM CDT Rule Out COVID-19 04/26/2022 04/26/2022 04/26/2022 6:47 AM CDT Rule Out COVID-19 05/17/2022 05/17/2022 05/17/2022 10:20 PM BONDING SUPERVISOR Rule Out COVID-19 06/09/2022 06/09/2022 06/09/2022 9:35 AM BONDING SUPERVISOR COVID-19 06/09/2022 06/09/2022 06/30/2022 11:4 1 PM BONDING SUPERVISOR Rule Out COVID-19 11/10/2022 11/10/2022 11/11/2022 12:17 PM CDT Rule Out COVID-19 03/07/2023 03/07/2023 03/07/2023 1:20 PM CDT Rule Out COVID-19 12/26/2023 12/26/2023 12/26/2023 9:50 AM CDT Assessment Noted Time PHQ-9 Depression Total Score: 2 04/02/20 10:19 AM CDT documented as of this encounter Care Teams Equipment Application Specialist Relationship Specialty Start Date End Date Marija Edgar APRN ASSOCIATE JUSTICE PCP - General Nurse Practitioner 04/30/20 04/14/23 Esha Grimm PA-C [address] [place] [phone] PCP - General Family Medicine 05/04/23 Lita Oseguera Personal Advocate & Liaison (PAL) 02/28/20 03/27/23 Chanelle Mccann APRN CNM [address] [address] Assigned OBGYN Provider 05/02/2005/09 Marija Edgar APRN ASSOCIATE JUSTICE Assigned PCP 06/08/20 04/29/23 Mynor Broussard MD [address] [facility] [address] [address] Assigned Surgical Provider 06/01/20 11/28/21 Keisha Dotson MD 909 [place] [address] Assigned Neuroscience Provider 06/04/20 04/01/23 Galo Burrell MD Assigned Heart and Vascular Provider 10/05/20 04/02/22 [facility] [address] [place] [address] Pharmacist Pharmacist 04/17/21 Rain Galaviz PA-C [address] [place] [address] DR RA[address] [facility] [place] [address] Physician Barber Instructor Dermatology 04/28/21 Summer Lara MD [address] [place] [address] Assigned OBGYN Provider 05/10/2105/23 Summer Lara MD [address] [place] [address] 901954 Assigned OBGYN Provider 05/31/21 2 Summer Lara MD [address] [place] [address] 746664 Assigned OBGYN Provider 05/24/2105/30 Tavia Wyatt MD [address] [place] [address] Dermatology 07/14/21 Johnny Murillo MD [address] [place] [address] Assigned Musculoskeletal Provider 08/30/21 03/17/22 Erica Farrell APRN ASSOCIATE JUSTICE [address] [place], [place] [address] Nurse Practitioner Cardiovascular Disease 09/09/21 Teresita Bean, [facility] [address] [place] [phone] Pharmacist Pharmacist 09/24/21 09/29/21 Tavia Wyatt MD Assigned Surgical Provider 11/29/21 05/07/22 [facility] 3033 [place], [place] 4467[address] Assigned MTM Pharmacist 01/02/22 Rich Barrett MD 516 [facility] 9A [place], [place] 3[address] Physician Ophthalmology 01/21/22 Neil Kent MD 500 [place], [place] 818825 Dermatology 02/24/22 Roney Story DPM [address] [facility] 300 [place] [address] Assigned Musculoskeletal Provider 03/20/22 08/13/22 Erica Farrell APRN ASSOCIATE JUSTICE 1700 [place] [address] Assigned Heart and Vascular Provider 04/03/22 04/16/22 [facility] 3033 [place] [address] Assigned MTM Pharmacist 04/07/[address] [place] [address] [facility] [place] [address] Assigned Surgical Provider 05/08/22 10/08/22 Galo Burrell MD Assigned Heart and Vascular Provider 04/17/22 06/11/22 Livan Sharif MD [address] [facility]00 [place] [address] Cardiovascular Disease 05/14/22 Livan Sharif MD [address] [facility]00 [place] [address] Assigned Heart and Vascular Provider 06/12/22 07/23/22 Catherine Cm MD [address] [place] 977375 Cardiovascular Disease 07/21/22 Valery Veronica, [place] 909 [place] [address] Physician Barber Instructor Dermatology 07/21/22 Catherine Cm MD [address] [place] [address] [place] [address] Assigned Heart and Vascular Provider 07/24/22 11/05/22 Johnny Murillo MD [address] [place] [address] 251344 Assigned Musculoskeletal Provider 08/14/22 10/08/22 Brea Quinn APRN ASSOCIATE JUSTICE [address] [place] [address] 530115 Nurse Practitioner Dermatology 09/21/22 Brea Quinn APRN ASSOCIATE JUSTICE [address] [place] [address] MD 394602 Assigned Surgical Provider 10/09/22 [place] [address] [address] Assigned Musculoskeletal Provider 10/09/22 Livan Sharif MD [address] [place] [address] [place] [address] Assigned Heart and Vascular Provider 11/06/22 11/12/22 Catherine Cm MD [address] [place] [address] [place] [place] 044285 Assigned Heart and Vascular Provider 11/13/22 05/27/23 Sydnie Martinez RN Personal Advocate & Liaison (PAL) Family Medicine 03/28/23 07/31/23 Alfonso Renteria MD 5775 [facility] [address] 200 [place] [address] Assigned Neuroscience Provider 04/02/23 Cheng Todd PA-C [address] [place] [address] Assigned PCP 04/30/23 07/15/23 Radha Lomeli, ARLENE ASSOCIATE JUSTICE 6405 [facility] [address] [place] [address] Assigned Heart and Vascular Provider 05/28/[address] [address] [facility] [place] [address] Ophthalmology 06/15/23 Pao Joseph, VJ Personal Advocate & Liaison (PAL) Nurse 08/01/23 11/07/23 Esha Grimm PA-C [address] [place] [phone] Assigned PCP 07/16/23 Valery Veronica PA-C [address] [place] [address] Physician Barber Instructor Dermatology 09/19/23 Rey Tay MD [address] [place] [address] 992605 Gastroenterology 09/20/23 Rocky Zepeda DO [address] [place] [address] 941965 Physician Gastroenterology 09/20/23 Philip Dumont MD 516 [place] [address] Physician Ophthalmology 09/22/23 Meredith Carrera PA-C 9 [place], [place] 567975 Assigned Gastroenterology Provider 11/01/23 Neil Kent MD [address] 412520 Dermatology 11/02/23 [place] [address] [place], [place] 624667 Neurological Surgery 12/26/23 documented as of this encounter
--- OUTSIDE RECORDS SUMMARY | 2024-02-12 05:53 | XMS_ITS | Encounter Summary ---
Author Organization [facility] Address [address] [place] [address] Care Team Providers Care Electronic Coils Supervisor Name Role Phone Lita Oseguera Unavailable Unavailable Marija Edgar APRN CONSULTING PRACTICE MANAGER Primary Care Provider Chanelle Gutierrez BOBBIN TRUCKER CNM Unavailab le Kyara De La Fuente RN Unavailable [phone] Marija Edgar APRN CONSULTING PRACTICE MANAGER Unavailable Unavail able Mynor Broussard MD Unavailable [phone] Keisha Dotson MD Unavailable Stacey Briones BASS GUITAR TEACHER Unavailable Galo Burrell MD Unavailable Unavailable Lesley Moody CHW Unavailable Meredith Bedoya Unavailable Unavailable Cristina Wood Unavailable [facility]ir [facility] Unavailable Rain Galaviz PA-C Unavailable Summer Lara MD Unavailable [phone] Summer Lara MD Unavailable [phone] Summer Lara MD Unavailable [phone] Tavia Wyatt MD Unavailable Unavailable Johnny Murillo MD Unavailable [phone] Erica Farrell BOBBIN TRUCKER CONSULTING PRACTICE MANAGER Unavailable Vikas Teresita Jesus Watson [facility] Unavailable Tavia Wyatt MD Unavailable Unavailable Kendrick Desirelle Stanislav [facility] Unavailable [phone] Rich Barrett MD Unavailable Neil Kent MD Unavailable Roney Story DPM Unavailable [phone] Erica Farrell BOBBIN TRUCKER CONSULTING PRACTICE MANAGER Unavailable Thang Diana Stanislav [facility] Unavailable [phone] Tommy Davidmao Templetone OD Unavailable Galo Burrell MD Unavailable Unavailable Livan Sharif MD Unavailable + Livan Sharif MD Unavailable + Catherine Cm MD Unavailable + Valery Veronica-C Unavailable [phone] Catherine mC MD Unavailable + Johnny Murillo MD Unavailable [phone] Brea Quinn BOBBIN TRUCKER CONSULTING PRACTICE MANAGER Unavailable [phone] Brea Quinn BOBBIN TRUCKER CONSULTING PRACTICE MANAGER Unavailable [phone] Jose Francisco Johnson MD Unavailable Livan Sharif MD Unavailable + Catherine Cm MD Unavailable + Sydnie Martinez RN Unavailable Unavailable Alfonso Renteria MD Unavailable [phone] Esha Grimm PA-C Primary Care Provider Cheng Todd PA-C Unavailable [phone] Radha Lomeli APRN CONSULTING PRACTICE MANAGER Unavailable [phone] Jelena David OD Unavailable Pao Joseph RN Unavailable Unavailable Wicho Grimmlincoln Medina PA-C Unavailable [phone] Valery Veronica PA-C Unavailable [phone] Rey Tay MD Unavailable Rocky Zepeda DO Unavailable Philip Dumont MD Unavailable [phone] Meredith Carrera PA-C Unavailable [phone] Neil Kent MD Unavailable Juan Pablo Emmanuel MD Unavailable [phone] Encounter Details Date Type Department Care Team (Late st Contact Info) Description 10/24/2020 My[facility] Medical Advice [address] [address] Marija Edgar APRN CONSULTING PRACTICE MANAGER Social History Tobacco Use Types Packs/Day [...] do you attend chur or uatsdin services? More than 4 times [...] Answer Date Recorded PHQ-2 Score 3 09/29/2020 [facility] [...] 11:44 AM CDT Replied to patient via CloudPayt. Anthony Doe PA-C on 10/27/2020 at 11:54 AM documented in this encounter Plan of Treatment Upcoming Encounters Date Type Department Care Team (Latest Contact Info) Description 02/14/2024 12:50 PM CDT Therapy Visit [address] [address] Rustam Medina, PT [facility] [address] [place] [address] 03/06/2024 3:00 PM CDT Office Visit [facility] Heart [facility] [address] [facility] [address] [place] [phone] Armani Radha Stovall, BOBBIN TRUCKER CONSULTING PRACTICE MANAGER [address] [place] [id number] 03/07/2024 9:00 AM CDT Hospital Encounter [facility] 909 [facility] 5th [place] [phone] Rocky Zepeda DO 500 [place], [place] [address] 03/07/2024 9:00 AM CDT - 03/07/2024 9:30 AM CDT Surgery [facility] 909 [facility] 5th [place] [phone] Rocky Zepeda DO 500 [place], [place] [phone] Esophagoscopy, gastroscopy, duodenoscopy (EGD), combined 06/21/2024 2:00 PM LINUX DEVOPS ENGINEER Office Visit [facility] Neurology [facility] [address] [place] [address], [address] [place] [phone] [place] [address] [place] [id number] Johnny Penn MD [address] [place] [address] Scheduled Procedures Name Priority Associated Diagnoses Date/Ti [...] Out COVID-19 07/13/2021 07/13/2021 07/14/2021 3:04 PM LINUX DEVOPS ENGINEER Rule Out COVID-19 07/18/2021 07/18/2021 07/20/2021 1:56 PM LINUX DEVOPS ENGINEER COVID-19 07/18/2021 07/18/2021 08/08/2021 11:3 9 PM LINUX DEVOPS ENGINEER Rule Out COVID-19 12/18/2021 12/18/2021 12/19/2021 11:34 AM CDT Rule Out COVID-19 02/24/2022 02/24/2022 02/25/2022 1:08 PM CDT Rule Out COVID-19 04/26/2022 04/26/2022 04/26/2022 6:47 AM CDT Rule Out COVID-19 05/17/2022 05/17/2022 05/17/2022 10:20 PM LINUX DEVOPS ENGINEER Rule Out COVID-19 06/09/2022 06/09/2022 06/09/2022 9:35 AM LINUX DEVOPS ENGINEER COVID-19 06/09/2022 06/09/2022 06/30/2022 11:4 1 PM LINUX DEVOPS ENGINEER Rule Out COVID-19 11/10/2022 11/10/2022 11/11/2022 12:17 PM CDT Rule Out COVID-19 03/07/2023 03/07/2023 03/07/2023 1:20 PM CDT Rule Out COVID-19 12/26/2023 12/26/2023 12/26/2023 9:50 AM CDT Assessment Noted Time PHQ-9 Depression Total Score: 6 09/30/19 3:25 PM CDT documented as of this encounter Care Teams Electronic Coils Supervisor Relationship Specialty Start Date End Date Marija Edgar APRN [facility] PCP - General Nurse Practitioner 04/30/20 04/14/23 Esha Grimm PA-C [address] [place] [phone] PCP - General Family Medicine 05/04/23 Lita Oseguera Personal Advocate & Liaison (PAL) 02/28/20 03/27/23 Chanelle Mccann APRN [facility] [address] [address] [facility], [facility] 200 [place] [address] Assigned OBGYN Provider 05/02/2005/09 Kyara De La Fuente, RN Specialty Migration Agent Neurology 06/04/20 03/05/21 Marija Edgar APRN CONSULTING PRACTICE MANAGER Assigned PCP 06/08/20 04/29/23 Mynor Broussard MD 6363 [facility] 500 [place] [address] Assigned Surgical Provider 06/01/20 11/28/21 Keisha Dotson MD 909 [place], [place] 936115 Assigned Neuroscience Provider 06/04/20 04/01/23 Stacey Briones, [facility] Lead Migration Agent Primary Care - CC 08/11/2012/30 Galo Burrell MD Assigned Heart and Vascular Provider 10/05/20 04/02/22 Lesley Moody, [facility] Community Health Worker 10/23/2012/30 Meredith Bedoya Financial Resource Worker 10/23/20 11/23/20 Cristina Wood Financial Resource Worker 02/09/21 02/09/21 Diana Desir, [facility] [address] [place] [address] Pharmacist Pharmacist 04/17/21 Rain Galaviz PA-C [address] [place] [address] [place] [address] Physician Dental Professional Dermatology 04/28/21 Summer Lara MD [address] [place] [address] Assigned OBGYN Provider 05/10/2105/23 Summer Lara MD [address] [place] [address] Assigned OBGYN Provider 05/31/21 Summer Lara MD [address] [place] [address] Assigned OBGYN Provider 05/24/2105/30 Tavia Wyatt MD [address] [place] [address] Dermatology 07/14/21 Johnny Murillo MD [address] [place] [address] Assigned Musculoskeletal Provider 08/30/21 03/17/22 Erica Farrell APRN CONSULTING PRACTICE MANAGER 6405 [facility] [address] [place] [address] Nurse Practitioner Cardiovascular Disease 09/09/21 Teresita Bean [facility] [address] [facility] [address] [place], [place] [phone] Pharmacist Pharmacist 09/24/21 09/29/21 Tavia Wyatt MD Assigned Surgical Provider 11/29/21 05/07/22 [facility] [address] [place] [address] Assigned MTM Pharmacist 01/02/22 Rich Barrett MD [address] [place] [address] Physician Ophthalmology 01/21/22 Neil Kent MD 500 [place] [address] Dermatology 02/24/22 Roney Story DPM [address] [facility] 300 [place] [address] Assigned Musculoskeletal Provider 03/20/22 08/13/22 Erica Farrell APRN CONSULTING PRACTICE MANAGER [facility]0 [place] [address] Assigned Heart and Vascular Provider 04/03/22 04/16/22 Diana Desir, [facility] [address] [place] [address] Assigned MTM Pharmacist 04/07/22 Jelena David OD [address] [place] [address] [place] [address] Assigned Surgical Provider 05/08/22 10/08/22 Galo Burrell MD Assigned Heart and Vascular Provider 04/17/22 06/11/22 Livan Sharif MD [address], [facility] [address] [place] [address] Cardiovascular Disease 05/14/22 Livan Sharif MD [address], [facility] [address] [place] [address] Assigned Heart and Vascular Provider 06/12/22 07/23/22 Catherine Cm MD [address] [facility]00 [place] [id number] Cardiovascular Disease 07/21/22 Valery Veronica, PA-C [address] [place] [address] 540125 Physician Dental Professional Dermatology 07/21/22 Catherine Cm MD [address] [facility]00 [place] [id number] Assigned Heart and Vascular Provider 07/24/22 11/05/22 Johnny Murillo MD [facility] [address] 144634 Assigned Musculoskeletal Provider 08/14/22 10/08/22 Brea Quinn APRN CONSULTING PRACTICE MANAGER [address] [place] [address] 786035 Nurse Practitioner Dermatology 09/21/22 Brea Quinn, BOBBIN TRUCKER CONSULTING PRACTICE MANAGER 6401 [facility] [address] Assigned Surgical Provider 10/09/22 [place] [address] [facility] 300 [place] [address] Assigned Musculoskeletal Provider 10/09/22 Livan Sharif MD [address] [facility] [address] [place] [id number] Assigned Heart and Vascular Provider 11/06/22 11/12/22 Catherine Cm MD [address] [facility]00 [place] [address] Assigned Heart and Vascular Provider 11/13/22 05/27/23 Sydnie Martinez RN Personal Advocate & Liaison (PAL) Family Medicine 03/28/23 07/31/23 Alfonso Renteria MD 5775 [facility] 200 [place], [place] 313026 Assigned Neuroscience Provider 04/02/23 Cheng Todd PA-C [address] [place] [address] Assigned PCP 04/30/23 07/15/23 Radha Lomeli APRN CONSULTING PRACTICE MANAGER [address] [place] 484[address] Assigned Heart and Vascular Provider 05/28/23 Jelena David OD [address] [facility] [place] [id number] MD Ophthalmology 06/15/23 Pao Joseph, RN Personal Advocate & Liaison (PAL) Nurse 08/01/23 11/07/23 Esha Grimm PA-C [address] [place] [phone] Assigned PCP 07/16/23 Valery Veronica PA-C [address] [place] [address] 629315 Physician Dental Professional Dermatology 09/19/23 Rey Tay MD [address] [place] [address] 162585 MD Gastroenterology 09/20/23 Rocky Zepeda DO [address] [place] [address] 871855 Physician Gastroenterology 09/20/23 Philip Dumont MD [address] [place] [address] 534065 Physician Ophthalmology 09/22/23 Meredith Carrera PA-C [address] [place] [address] 283355 Assigned Gastroenterology Provider 11/01/23 Neil Kent MD [address] [address] Dermatology 11/02/23 [place] [address] [place] [address] Neurological Surgery 12/26/23 documented as of this encounter
--- OUTSIDE RECORDS SUMMARY | 2024-02-12 05:53 | XMS_ITS | Encounter Summary ---
Author Organization [facility] Address [address] [place] [address] Care Team Providers Care Merchandise Flow Team Member Name Role Phone Lita Oseguera Unavailable Unavailable Marija Edgar APRN VOLUNTEER ASSISTANT Primary Care Provider Chanelle Gutierrez APRN CNM Unavailab le Kyara De La Fuente RN Unavailable [phone] Marija Edgar APRN VOLUNTEER ASSISTANT Unavailable Unavail able Mynor Broussard MD Unavailable [phone] Keisha Dotson MD Unavailable Stacey Briones HOSPITAL MEDICINE DIRECTOR Unavailable [phone] Lesley Moody CHW Unavailable Mary Mejia Unavailable Unavailable Lita Oseguera Unavailable Unavailable Galo Burrell MD Unavailable Unavailable Cristina Wood Unavailable Lesley Moody CHW Unavailable Meredith Bedoya Unavailable Unavailable Cristina Wood Unavailable Diana Desir [facility] Unavailable Rain Galaviz PA-C Unavailable Summer Lara MD Unavailable [phone] Summer Lara MD Unavailable [phone] Summer Lara MD Unavailable + [phone] Tavia Wyatt MD Unavailable Unavailable SemJohnny mckeon MD Unavailable +1- Erica Farrell LEAD SYSTEMS ARCHITECT VOLUNTEER ASSISTANT Unavailable + BeanTeresita H Unavailable Tavia Wyatt MD Unavailable Unavailable Diana Desir [facility] Unavailable +[phone] Rich Barrett MD Unavailable + Neil Kent MD Unavailable + Roney Story DPM Unavailable [phone] Erica Farrell LEAD SYSTEMS ARCHITECT VOLUNTEER ASSISTANT Unavailable + Diana Desir [facility] Unavailable +[phone] Jelena David Radha Unavailable [phone] Galo Burrell MD Unavailable Unavailable Livan Sharif MD Unavailable + Livan Sharif MD Unavailable + Catherine Cm MD Unavailable + Valery Veronica PA-C Unavailable +[phone] Catherine Cm MD Unavailable + Johnny Murillo MD Unavailable +1- Brea Quinn LEAD SYSTEMS ARCHITECT VOLUNTEER ASSISTANT Unavailable +1- Brea Quinn LEAD SYSTEMS ARCHITECT VOLUNTEER ASSISTANT Unavailable [phone] Jose Francisco Johnson MD Unavailable + Livan Sharif MD Unavailable + Catherine Cm MD Unavailable + Sydnie Martinez RN Unavailable Unavailable Alfonso Renteria MD Unavailable [phone] Esha Grimm PA-C Primary Care Provider Cheng Todd PA-C Unavailable Radha Lomeli APRN VOLUNTEER ASSISTANT Unavailable [phone] Jelena David OD Unavailable [phone] Pao Joseph RN Unavailable Unavailable Esha GrimmC Unavailable [phone] Valery Veronica PA-C Unavailable [phone] Rey Tay MD Unavailable Rocky Zepeda DO Unavailable Philip Dumont MD Unavailable [phone] Meredith Carrera PA-C Unavailable [phone] Neil Kent MD Unavailable Juan Pablo Emmanuel MD Unavailable [phone] Reason for Visit * Reason Onset Date Comments MyChart Communication 09/08/2020 Encounter Details Date Type Department Care Team (Latest Contact Info) Description 09/08/2020 [facility] Medical [facility] [address] [address] Marija Edgar APRN VOLUNTEER ASSISTANT MyChart Communication Social History Tobacco Use Types [...] Answer Date Recorded PHQ-2 Score 0 08/12/2020 [facility] - [...] COVID-19? No / Unsure 09/09/2020 10:09 AM REFINING STILL OPERATOR documented as of this encounter Miscellaneous Notes * Telephone Encounter - Natasha Luis RN - 09/09/2020 7:29 AM CST See [email or web address] message, cardio ordered, pt cannot view echo [...] RN, BSN Message handled by CLINIC NURSE.' NING STILL OPERATOR * Telephone Encounter - Ever Cardozo MA - 09/09/2020 7:08 AM CST Triage, could you please see if results are posted yet in regards to patients ultrasound. Ever Cardozo CMA (AAMA) NING STILL OPERATOR documented in this encounter Plan of Treatment Upcoming Encounters Date Type Department Care Team (Latest Contact Info) Description 02/14/2024 12:50 PM CDT Therapy Visit [address] [address] Rustam Medina, PT [facility] [address] [place] [address] 03/06/2024 3:00 PM CDT Office Visit [facility] [address] [place] [address] [address] [place] [phone] Radha Lomeli APRN VOLUNTEER ASSISTANT [address] [facility] [address] [place], [place] [address] 03/07/2024 9:00 AM CDT Hospital Encounter [facility] [address] [place] [address] 5th [place] [address] Rocky Zepeda DO 500 [place] [address] 03/07/2024 9:00 AM CDT - 03/07/2024 9:30 AM CDT Surgery [address] 5th [place] [phone] Rocky Zepeda, DO 500 [facility], [place] 28[address] Esophagoscopy, gastroscopy, duodenoscopy (EGD), combined 06/21/2024 2:00 PM REFINING STILL OPERATOR Office Visit [facility] Neurology [facility] 6545 [facility], [address] [place] [address] [place] [address] [place] [address] Johnny Penn MD [address] [place] [phone] Scheduled Procedures Name Priority Associated Diagnoses Date/Ti [...] Out COVID-19 07/13/2021 07/13/2021 07/14/2021 3:04 PM REFINING STILL OPERATOR Rule Out COVID-19 07/18/2021 07/18/2021 07/20/2021 1:56 PM REFINING STILL OPERATOR COVID-19 07/18/2021 07/18/2021 08/08/2021 11:3 9 PM REFINING STILL OPERATOR Rule Out COVID-19 12/18/2021 12/18/2021 12/19/2021 11:34 AM CDT Rule Out COVID-19 02/24/2022 02/24/2022 02/25/2022 1:08 PM CDT Rule Out COVID-19 04/26/2022 04/26/2022 04/26/2022 6:47 AM CDT Rule Out COVID-19 05/17/2022 05/17/2022 05/17/2022 10:20 PM REFINING STILL OPERATOR Rule Out COVID-19 06/09/2022 06/09/2022 06/09/2022 9:35 AM REFINING STILL OPERATOR COVID-19 06/09/2022 06/09/2022 06/30/2022 11:4 1 PM REFINING STILL OPERATOR Rule Out COVID-19 11/10/2022 11/10/2022 11/11/2022 12:17 PM CDT Rule Out COVID-19 03/07/2023 03/07/2023 03/07/2023 1:20 PM CDT Rule Out COVID-19 12/26/2023 12/26/2023 12/26/2023 9:50 AM CDT Assessment Noted Time PHQ-9 Depression Total Score: 9 06/25/20 20 7:04 AM REFINING STILL OPERATOR documented as of this encounter Care Teams Merchandise Flow Team Member Relationship Specialty Start Date End Date Marija Edgar APRN VOLUNTEER ASSISTANT PCP - General Nurse Practitioner 04/30/20 04/14/23 Esha Grimm PA-C [address] [place] [address] PCP - General Family Medicine 05/04/23 Lita Oseguera Personal Advocate & Liaison (PAL) 02/28/20 03/27/23 Chanelle Mccann APRN CNM [address] [address] Assigned OBGYN Provider 05/02/2005/09 Kyara De La Fuente, VJ Specialty Inhalation Therapy Aide Neurology 06/04/20 03/05/21 Marija Edgar APRN VOLUNTEER ASSISTANT Assigned PCP 06/08/20 04/29/23 Mynor Broussard MD [address] [place] [address] Assigned Surgical Provider 06/01/20 11/28/21 Keisha Dotson MD 909 [place] [address] Assigned Neuroscience Provider 06/04/20 04/01/23 Stacey Briones, [facility] Lead Inhalation Therapy Aide Primary Care - CC 08/11/2012/30 Lesley Moody, [facility] Community Health Worker 08/11/2010/01 Mary Mejia Financial Resource Worker 09/02/20 10/06/20 Lita Oseguera Personal Advocate & Liaison (PAL) Family Medicine 09/10/20 09/21/20 Galo Burrell MD Assigned Heart and Vascular Provider 10/05/20 04/02/22 Cristina Wood Financial Resource Worker 10/07/20 10/14/20 Lesley Moody, [facility] Community Health Worker 10/23/2012/30 Meredith Bedoya Financial Resource Worker 10/23/20 11/23/20 Cristina Wood Financial Resource Worker 02/09/21 02/09/21 Diana Desir, [facility] 3033 [place], [place] 378676 Pharmacist Pharmacist 04/17/21 Rain Galaviz PA-C [address] [place] [address] [place] [address] Physician Health Occupations Teacher Dermatology 04/28/21 Summer Lara MD [address] [place] [address] Assigned OBGYN Provider 05/10/2105/23 Summer Lara MD [address] [place] [address] Assigned OBGYN Provider 05/31/21 Summer Lara MD [address] [facility] [place] [address] Assigned OBGYN Provider 05/24/2105/30 Tavia Wyatt MD 606 [facility] [place] [address] Dermatology 07/14/21 Johnny Murillo MD [address] [place] [address] Assigned Musculoskeletal Provider 08/30/21 03/17/22 Erica Farrell APRN VOLUNTEER ASSISTANT 6[address] [facility] [address] [place] [address] Nurse Practitioner Cardiovascular Disease 09/09/21 Teresita Bean [facility] [address] [place] [place] [phone] Pharmacist Pharmacist 09/24/21 09/29/21 Tavia Wyatt MD Assigned Surgical Provider 11/29/21 05/07/22 Diana Desir, [facility] [address] [place] [address] Assigned MTM Pharmacist 01/02/22 Rich Barrett MD 516 [facility] [address] [place] [address] Physician Ophthalmology 01/21/22 Neil Kent MD 500 [place] [address] Dermatology 02/24/22 Roney Story DPM [address] [facility] [address] [place] [address] Assigned Musculoskeletal Provider 03/20/22 08/13/22 Erica Farrell APRN VOLUNTEER ASSISTANT 1700 [place] [address] Assigned Heart and Vascular Provider 04/03/22 04/16/22 Diana Desir, [facility] 3033 [place] [address] Assigned MTM Pharmacist 04/07/22 Jelena David OD [address] [facility] [place] [address] Assigned Surgical Provider 05/08/22 10/08/22 Galo Burrell MD Assigned Heart and Vascular Provider 04/17/22 06/11/22 Livan Sharif MD 6405 [facility], [facility] [address] [place] 739[address] Cardiovascular Disease 11/4/22 Livan Sharif MD [address] [facility]00 [place] 04[address]85 Assigned Heart and Vascular Provider 06/12/22 07/23/22 Catherine Cm MD [address] [place] [address] [place] 483975 Cardiovascular Disease 07/21/22 Valery Veronica, PA-C [address] [place] [address] 494105 Physician Health Occupations Teacher Dermatology 07/21/22 Catherine Cm MD [address] [place] [address] [place], [place] 49[address]65 Assigned Heart and Vascular Provider 07/24/22 11/05/22 Johnny Murillo MD [address] [place] [address] 713324 Assigned Musculoskeletal Provider 08/14/22 10/08/22 Brea Quinn APRN VOLUNTEER ASSISTANT [address] [place] [address] 429685 Nurse Practitioner Dermatology 09/21/22 Brea Quinn APRN VOLUNTEER ASSISTANT [address] [place] [address] [place] 059482 Assigned Surgical Provider 10/09/22 [place] [address] [place] [address] [place] [address] [place] 570307 Assigned Musculoskeletal Provider 10/09/22 Livan Sharif MD [address], [facility] [address] [place] 763485 Assigned Heart and Vascular Provider 11/06/22 11/12/22 Catherine Cm MD [address] [place] [address] [place] [address] Assigned Heart and Vascular Provider 11/13/22 05/27/23 Sydnie Martinez, RN Personal Advocate & Liaison (PAL) Family Medicine 03/28/23 07/31/23 Alfonso Renteria MD 5775 [facility] 200 [place] [address] Assigned Neuroscience Provider 04/02/23 Cheng Todd PA-C [address] [place] [address] [id number] Assigned PCP 04/30/23 07/15/23 Radha Lomeli, LEAD SYSTEMS ARCHITECT VOLUNTEER ASSISTANT [address] [place] [address] Assigned Heart and Vascular Provider 05/28/23 Jelena David OD [address] [facility] [place] [address] Ophthalmology 06/15/23 Pao Joseph, VJ Personal Advocate & Liaison (PAL) Nurse 08/01/23 11/07/23 Esha Grimm PAUcheC [address] [place] [address] Assigned PCP 07/16/23 Valery Veronica PA-C 9 [place] [address] Physician Health Occupations Teacher Dermatology 09/19/23 Rey Tay MD [address] [place] [address] 177655 MD Gastroenterology 09/20/23 Rocky Zepeda DO [address] [place] [address] 919245 Physician Gastroenterology 09/20/23 Philip Dumont MD [address] [place] [address] 853005 Physician Ophthalmology 09/22/23 Meredith Carrera PA-C [address] [place] [address] 832335 Assigned Gastroenterology Provider 11/01/23 Neil Kent MD [address] [address] Dermatology 11/02/23 [place] [address] [place], [place] 7468[address] Neurological Surgery 12/26/23 documented as of this encounter
--- OUTSIDE RECORDS SUMMARY | 2024-02-12 05:54 | XMS_ITS | Encounter Summary ---
Author Organization [place] Address [address] [place] [address] Care Team Providers Care Pricing Analyst Name Role Phone Lita Oseguera Unavailable Unavailable Marija Edgar APRN PROCESS EQUIPMENT OPERATOR Primary Care Provider Chanelle Gutierrez APRN CNM Unavailab le Kyara De La Fuente RN Unavailable [phone] Marija Edgar APRN PROCESS EQUIPMENT OPERATOR Unavailable Unavail able Mynor Broussard MD Unavailable [phone] Keisha Dotson MD Unavailable Mary Mejia Unavailable Unavailable Stacey Briones CONTINUOUS VULCANIZING MACHINE OPERATOR Unavailable Lesley Moody CHW Unavailable Mary Mejia Unavailable Unavailable Lita Oseguera Unavailable Unavailable Galo Burrell MD Unavailable Unavailable Cristina Wood Unavailable Lesley Moody CHW Unavailable Meredith Bedoya Unavailable Unavailable Cristina Wood Unavailable Diana Desir [facility] Unavailable [phone] Rain Galaviz PA-C Unavailable [phone] Summer Lara MD Unavailable Summer Lara MD Unavailable [phone] Summer Lara MD Unavailable + [phone] Tavia Wyatt MD Unavailable Unavailable SemJohnny mckeon MD Unavailable +1- Erica Farrell DIFFUSION FURNACE OPERATOR PROCESS EQUIPMENT OPERATOR Unavailable + BeanTeresita RPH Unavailable Tavia Wyatt MD Unavailable Unavailable Diana Desir H Unavailable [phone] Rich Barrett MD Unavailable [phone] Neil Kent MD Unavailable Roney Story DPM Unavailable [phone] Erica Farrell DIFFUSION FURNACE OPERATOR PROCESS EQUIPMENT OPERATOR Unavailable + Diana Desir RPH Unavailable [phone] Jelena David OD Unavailable [phone] Galo Burrell MD Unavailable Unavailable Livan Sharif MD Unavailable + Livan Sharif MD Unavailable + Catherine Cm MD Unavailable + Valery Veronica PA-C Unavailable [phone] Catherine Cm MD Unavailable + Johnny Murillo MD Unavailable +1- Brea Quinn DIFFUSION FURNACE OPERATOR PROCESS EQUIPMENT OPERATOR Unavailable [phone] Brea Quinn DIFFUSION FURNACE OPERATOR PROCESS EQUIPMENT OPERATOR Unavailable [phone] Jose Francisco Johnson MD Unavailable Livan Sharif MD Unavailable + Catherine Cm MD Unavailable + Sydnie Martinez RN Unavailable Unavailable Alfonso Renteria MD Unavailable [phone] Esha Grimm PA-C Primary Care Provider Cheng Todd PA-C Unavailable Radha Lomeli APRN PROCESS EQUIPMENT OPERATOR Unavailable Jelena David OD Unavailable Pao Joseph RN Unavailable Unavailable Esha Grimm PA-C Unavailable [phone] Valery Veronica PA-C Unavailable [phone] Rey Tay MD Unavailable Rocky Zepeda DO Unavailable Philip Dumont MD Unavailable [phone] Meredith Carrera PA-C Unavailable [phone] Neil Kent MD Unavailable Juan Pablo Emmanuel MD Unavailable Encounter Details Date Type Department Care Team (Latest Contact Info) Description 07/29/2020 [facility] [address] [address] Marija Edgar APRN CNP Palpitations [...] COVID-19? No / Unsure 07/30/2020 4:53 PM PAPER CUTTER OPERATOR documented as of this encounter Miscellaneous Notes * Telephone Encounter - Marija Edgar APRN CNP - 07/30/2020 10:21 AM PAPER CUTTER OPERATOR Responded via MyChart Marija Edgar APRN PROCESS EQUIPMENT OPERATOR on 07/30/2020 at 10:28 AM R CUTTER OPERATOR documented in this encounter Plan of Treatment Upcoming Encounters Date Type Department Care Team (Latest Contact Info) Description 02/14/2024 12:50 PM CDT Therapy Visit [address] [phone] Rustam Medina, [facility] [address] [place] [address] 03/06/2024 3:00 PM CDT Office Visit [facility] [place] [id number] [place] [address] [address] [place] [phone] Radha Lomeli APRN PROCESS EQUIPMENT OPERATOR [address] [facility] [address] [place] [address] 03/07/2024 9:00 AM CDT Hospital Encounter [address] [phone] Rocky Zepeda DO [address] [place] [address] 03/07/2024 9:00 AM CDT - 03/07/2024 9:30 AM CDT Surgery [address] [phone] Rocky Zepeda DO [address] [place], [place] [phone] Esophagoscopy, gastroscopy, duodenoscopy (EGD), combined 06/21/2024 2:00 PM PAPER CUTTER OPERATOR Office Visit [facility] Neurology [facility] [address] [facility], [address] [place] [address] [place] [address] [place], [place] [id number] Johnny Penn MD [address] [place] [phone] Scheduled Procedures Name Priority Associated Diagnoses Date/Ti mo ESOPHAGOGASTRODUODENOSCOPY Eosinophilic esophagitis Esophageal dysphagia 03/07/2024 9:00 AM CDT documented as of this encounter Visit Diagnoses Diagnosis Palpitations- Primary Eosinophilic esophagitis Esophageal dysphagia Dysphagia, pharyngoesophageal phase documented in this encounter Additional Health Concerns Infection Onset Date Last Indicated Resolved Time Rule Out COVID-19 07/30/2020 07/30/2020 07/30/2020 7:11 PM PAPER CUTTER OPERATOR Rule Out COVID-19 08/30/2020 08/30/2020 08/30/2020 5:05 PM PAPER CUTTER OPERATOR Rule Out COVID-19 09/24/2020 09/24/2020 09/24/2020 9:24 AM CDT Rule Out COVID-19 11/05/2020 11/05/2020 11/06/2020 1:09 PM CDT Rule Out COVID-19 05/11/2021 05/11/2021 05/13/2021 10:18 AM CDT Rule Out COVID-19 07/13/2021 07/13/2021 07/14/2021 3:04 PM PAPER CUTTER OPERATOR Rule Out COVID-19 07/18/2021 07/18/2021 07/20/2021 1:56 PM PAPER CUTTER OPERATOR COVID-19 07/18/2021 07/18/2021 08/08/2021 11:3 9 PM PAPER CUTTER OPERATOR Rule Out COVID-19 12/18/2021 12/18/2021 12/19/2021 11:34 AM CDT Rule Out COVID-19 02/24/2022 02/24/2022 02/25/2022 1:08 PM CDT Rule Out COVID-19 04/26/2022 04/26/2022 04/26/2022 6:47 AM CDT Rule Out COVID-19 05/17/2022 05/17/2022 05/17/2022 10:20 PM PAPER CUTTER OPERATOR Rule Out COVID-19 06/09/2022 06/09/2022 06/09/2022 9:35 AM PAPER CUTTER OPERATOR COVID-19 06/09/2022 06/09/2022 06/30/2022 11:4 1 PM PAPER CUTTER OPERATOR Rule Out COVID-19 11/10/2022 11/10/2022 11/11/2022 12:17 PM CDT Rule Out COVID-19 03/07/2023 03/07/2023 03/07/2023 1:20 PM CDT Rule Out COVID-19 12/26/2023 12/26/2023 12/26/2023 9:50 AM CDT Assessment Noted Time PHQ-9 Depression Total Score: 9 06/25/20 7:04 AM PAPER CUTTER OPERATOR documented as of this encounter Care Teams Pricing Analyst Relationship Specialty Start Date End Date Marija Edgar APRN PROCESS EQUIPMENT OPERATOR PCP - General Nurse Practitioner 04/30/20 04/14/23 Esha Grimm PA-C [address] [place] [phone] PCP - General Family Medicine 05/04/23 Lita Oseguera Personal Advocate & Liaison (PAL) 02/28/20 03/27/23 Chanelle Mccann APRN CNM [address] [place] [address] Assigned OBGYN Provider 05/02/2005/09 Kyara De La Fuente, VJ Specialty Emergency Room Physician Neurology 06/04/20 03/05/21 Marija Edgar APRN PROCESS EQUIPMENT OPERATOR Assigned PCP 06/08/20 04/29/23 Mynor Broussard MD [address] [phone] Assigned Surgical Provider 06/01/20 11/28/21 Keisha Dotson MD [address] [place], [place] 2[address] Assigned Neuroscience Provider 06/04/20 04/01/23 Mary Mejia Financial Resource Worker 08/07/20 08/21/20 Stacey Briones, [facility] Lead Emergency Room Physician Primary Care - CC 08/11/2012/30 Lesley Moody, [facility] Community Health Worker 08/11/2010/01 Mary Mejia Financial Resource Worker 09/02/20 10/06/20 Lita Oseguera Personal Advocate & Liaison (PAL) Family Medicine 09/10/20 09/21/20 Galo Burrell MD Assigned Heart and Vascular Provider 10/05/20 04/02/22 Cristina Wood Financial Resource Worker 10/07/20 10/14/20 Lesley Moody, [facility] Community Health Worker 10/23/2012/30 Meredith Bedoya Financial Resource Worker 10/23/20 11/23/20 Cristina Wood Financial Resource Worker 02/09/21 02/09/21 Diana Desir, [facility] [address] [place], [place] [phone] Pharmacist Pharmacist 04/17/21 Rain Galaviz PA-C [address] [facility] [address] [facility] [place] [address] Physician Generation Manager Dermatology 04/28/21 Summer Lara MD [address] [place] [address] Assigned OBGYN Provider 05/10/2105/23 Summer Lara MD [address] [place], [place] [address] Assigned OBGYN Provider 05/31/21 Summer Lara MD [address] [place] [address] Assigned OBGYN Provider 05/24/2105/30 Tavia Wyatt MD [address] [place] [address] Dermatology 07/14/21 Johnny Murillo MD [address] [place] [address] Assigned Musculoskeletal Provider 08/30/21 03/17/22 Erica Farrell APRN PROCESS EQUIPMENT OPERATOR [address] [facility] [address] [place] [address] Nurse Practitioner Cardiovascular Disease 09/09/21 Teresita Bean, [facility] [address] [place] [address] Pharmacist Pharmacist 09/24/21 09/29/21 Tavia Wyatt MD Assigned Surgical Provider 11/29/21 05/07/22 Diana Desir, [facility] [address] [place] [address] Assigned MTM Pharmacist 01/02/22 Rich Barrett MD [address] [address] Physician Ophthalmology 01/21/22 Neil Kent MD [address] [place] [address] [phone] Dermatology 02/24/22 Roney Story DPM [address] [facility] [address] [place] [address] Assigned Musculoskeletal Provider 03/20/22 08/13/22 Erica Farrell APRN PROCESS EQUIPMENT OPERATOR [address] [place] [address] Assigned Heart and Vascular Provider 04/03/22 04/16/22 Diana Desir, [facility] [address] [place] [address] Assigned MTM Pharmacist 04/07/22 Jelena David OD [address] [facility] [place] [address] Assigned Surgical Provider 05/08/22 10/08/22 Galo Burrell MD Assigned Heart and Vascular Provider 04/17/22 06/11/22 Livan Sharif MD [address] [place] [address] Cardiovascular Disease 05/14/22 Livan Sharif MD [address] [place] [address] [place] [address] Assigned Heart and Vascular Provider 06/12/22 07/23/22 Catherine Cm MD [address] [place] [address] Cardiovascular Disease 07/21/22 Valery Veronica, PAUcheC [address] [place] [address] [phone] Physician Generation Manager Dermatology 07/21/22 Catherine Cm MD [address] [place] [address] Assigned Heart and Vascular Provider 07/24/22 11/05/22 Johnny Murillo MD [facility] [address] 119[address] Assigned Musculoskeletal Provider 08/14/22 10/08/22 Brea Quinn APRN PROCESS EQUIPMENT OPERATOR [address] [place] [address] 453005 Nurse Practitioner Dermatology 09/21/22 Brea Quinn APRN PROCESS EQUIPMENT OPERATOR [address] [place] [address] [place] 738602 Assigned Surgical Provider 10/09/22 [place] [address] [address] [facility] [address] [facility] [place] [address] Assigned Musculoskeletal Provider 10/09/22 Livan Sharif MD [address] [place] [address] Assigned Heart and Vascular Provider 11/06/22 11/12/22 Catherine Cm MD [address] [place] [address] Assigned Heart and Vascular Provider 11/13/22 05/27/23 Sydnie Martinez RN Personal Advocate & Liaison (PAL) Family Medicine 03/28/23 07/31/23 Alfonso Renteria MD [address] [facility] [address] [place] [address] Assigned Neuroscience Provider 04/02/23 Cheng Todd PA-C [address] [place] [address] [phone] Assigned PCP 04/30/23 07/15/23 Radha Lomeli, ARLENE PROCESS EQUIPMENT OPERATOR [address] [place] [address] Assigned Heart and Vascular Provider 05/28/23 Jelena David OD [address] [facility] [place] [address] Ophthalmology 06/15/23 Pao Joseph RN Personal Advocate & Liaison (PAL) Nurse 08/01/23 11/07/23 Esha Grimm PA-C [address] [place] [address] Assigned PCP 07/16/23 Valery Veronica PA-C [address] [place] [address] Physician Generation Manager Dermatology 09/19/23 Rey Tay MD [address] [place] [address] MD Gastroenterology 09/20/23 Rocky Zepeda DO [address] [place] [address] 545645 Physician Gastroenterology 09/20/23 Philip Dumont MD [address] [place] [address] 024735 Physician Ophthalmology 09/22/23 Meredith Carrera PA-C [address] [place] [address] Assigned Gastroenterology Provider 11/01/23 Neil Kent MD [address] [address] Dermatology 11/02/23 [place] [address] [place] [address] Neurological Surgery 12/26/23 documented as of this encounter
--- OUTSIDE RECORDS SUMMARY | 2024-02-12 05:54 | XMS_ITS | Encounter Summary ---
Author Organization [facility] Address [address] [place] [address] Care Team Providers Care Post Framer Name Role Phone Lita Oseguera Unavailable Unavailable Marija Edgar APRN INDUSTRIAL TECHNOLOGY TEACHER Primary Care Provider Chanelle Gutierrez APRN CNM Unavailab le Kyara De La Fuente RN Unavailable [phone] Marija Edgar APRN INDUSTRIAL TECHNOLOGY TEACHER Unavailable Unavail able Mynor Broussard MD Unavailable [phone] Keisha Dotson MD Unavailable [phone] Stacey Briones POLE PEELING MACHINE OPERATOR Unavailable Lesley Moody CHW Unavailable Mary Mejia Unavailable Unavailable Lita Oseguera Unavailable Unavailable Galo Burrell MD Unavailable Unavailable Cristina Wood Unavailable Lesley Moody CHW Unavailable [phone] Meredith Bedoya Unavailable Unavailable Cristina oWod Unavailable Diana Desir [facility] Unavailable Rain Galaviz PA-C Unavailable Summer Lara MD Unavailable [phone] Summer Lara MD Unavailable [phone] Summer Lara MD Unavailable + [phone] Tavia Wyatt MD Unavailable Unavailable SemJohnny mckeon MD Unavailable +1- Erica Farrell SUMMER INTERN INDUSTRIAL TECHNOLOGY TEACHER Unavailable + BeanTeresita H Unavailable Tavia Wyatt MD Unavailable Unavailable Diana Desir [facility] Unavailable +[phone] Rich Barrett MD Unavailable + Neil Kent MD Unavailable + Roney Story DPM Unavailable [phone] Erica Farrell SUMMER INTERN INDUSTRIAL TECHNOLOGY TEACHER Unavailable + Diana Desir [facility] Unavailable +[phone] Jelena David Radha Unavailable [phone] Galo Burrell MD Unavailable Unavailable Livan Sharif MD Unavailable + Livan Sharif MD Unavailable + Catherine Cm MD Unavailable + Valery Veronica PA-C Unavailable +[phone] Catherine Cm MD Unavailable + Johnny Murillo MD Unavailable +1- Brea Quinn SUMMER INTERN INDUSTRIAL TECHNOLOGY TEACHER Unavailable +1- Brea Quinn SUMMER INTERN INDUSTRIAL TECHNOLOGY TEACHER Unavailable [phone] Jose Francisco Johnson MD Unavailable + Livan Sharif MD Unavailable + Catherine Cm MD Unavailable + Sydnie Martinez RN Unavailable Unavailable Alfonso Renteria MD Unavailable +- [phone] Esha Grimm PA-C Primary Care Provider Cheng Todd PA-C Unavailable Radha Lomeli APRN INDUSTRIAL TECHNOLOGY TEACHER Unavailable [phone] Jelena David OD Unavailable Pao Joseph RN Unavailable Unavailable Esha GrimmC Unavailable [phone] Valery Veronica PA-C Unavailable +[phone] Rey Tay MD Unavailable Rocky Zepeda DO Unavailable Philip Dumont MD Unavailable [phone] Meredith Carrera-C Unavailable [phone] Neil Kent MD Unavailable Juan Pablo Emmanuel MD Unavailable [phone] Reason for Visit * Reason Onset Date Comments Patient/info Update 08/31/2020 appointment request Encounter Details Date Type Department Care Team (Late st Contact Info) Description 08/31/2020 [facility] [place] [address] [address] Marija Edgar APRN CNP Patient/info [...] Answer Date Recorded PHQ-2 Score 0 08/12/2020 [facility] of Occupat ional Health [...] in a mcfp (including now)? No 08/11/2020 Education Answer Date [...] COVID-19? No / Unsure 09/03/2020 12:11 PM CHIEF COMMERCIAL OFFICER documented as of this encounter Miscellaneous Notes * Telephone Encounter - Maryjane Mccallum RN - 09/01/2020 7:21 AM CHIEF COMMERCIAL OFFICER Patient sent message requesting office visit with [...] Office Visit with Marija Edgar APRN CNP [facility] ([facility] ) [address] [facility] [phone] Maryjane Mccallum, Registered Nurse [facility] F COMMERCIAL OFFICER documented in this encounter Plan of Treatment Upcoming Encounters Date Type Department Care Team (Latest Contact Info) Description 02/14/2024 12:50 PM CDT Therapy Visit [facility] Rehabilitation Services [address] [address] Rustam Medina, [facility] [address] [place] [address] 03/06/2024 3:00 PM CDT Office Visit [facility] Heart [facility] [address] [facility] [address] [place] [phone] Radha Lomeli APRN CNP [address] [place] [address] 03/07/2024 9:00 AM CDT Hospital Encounter [address] [phone] Rocky Zepeda DO 500 [place], [place] 8[address]155 03/07/2024 9:00 AM CDT - 03/07/2024 9:30 AM CDT Surgery [address] [phone] Rocky Zepeda DO 500 [place], [place] [address] Esophagoscopy, gastroscopy, duodenoscopy (EGD), combined 06/21/2024 2:00 PM CHIEF COMMERCIAL OFFICER Office Visit [facility] Neurology [facility] [address] [facility], [address] [place] [address] [place] [address] [place], [place] [address] Johnny Penn MD [address] [place] [address] Scheduled Procedures [...] Out COVID-19 07/13/2021 07/13/2021 07/14/2021 3:04 PM CHIEF COMMERCIAL OFFICER Rule Out COVID-19 07/18/2021 07/18/2021 07/20/2021 1:56 PM CHIEF COMMERCIAL OFFICER COVID-19 07/18/2021 07/18/2021 08/08/2021 11:3 9 PM CHIEF COMMERCIAL OFFICER Rule Out COVID-19 12/18/2021 12/18/2021 12/19/2021 11:34 AM CDT Rule Out COVID-19 02/24/2022 02/24/2022 02/25/2022 1:08 PM CDT Rule Out COVID-19 04/26/2022 04/26/2022 04/26/2022 6:47 AM CDT Rule Out COVID-19 05/17/2022 05/17/2022 05/17/2022 10:20 PM CHIEF COMMERCIAL OFFICER Rule Out COVID-19 06/09/2022 06/09/2022 06/09/2022 9:35 AM CHIEF COMMERCIAL OFFICER COVID-19 06/09/2022 06/09/2022 06/30/2022 11:4 1 PM CHIEF COMMERCIAL OFFICER Rule Out COVID-19 11/10/2022 11/10/2022 11/11/2022 12:17 PM CDT Rule Out COVID-19 03/07/2023 03/07/2023 03/07/2023 1:20 PM CDT Rule Out COVID-19 12/26/2023 12/26/2023 12/26/2023 9:50 AM CDT Assessment Noted Time PHQ-9 Depression Total Score: 9 06/25/20 20 7:04 AM CHIEF COMMERCIAL OFFICER documented as of this encounter Care Teams Post Framer Relationship Specialty Start Date End Date Marija Edgar APRN INDUSTRIAL TECHNOLOGY TEACHER PCP - General Nurse Practitioner 04/30/20 04/14/23 Esha Grimm PA-C [address] [place] [phone] PCP - General Family Medicine 05/04/23 Lita Oseguera Personal Advocate & Liaison (PAL) 02/28/20 03/27/23 Chaenlle Mccann APRN CNM [address] [place] [address] 200 [place], [place] 385617 Assigned OBGYN Provider 05/02/2005/09 Kyara De La Fuente, RN Specialty Life Agent Neurology 06/04/20 03/05/21 Marija Edgar APRN INDUSTRIAL TECHNOLOGY TEACHER Assigned PCP 06/08/20 04/29/23 Mynor Broussard MD [address] 500 [place] [address] Assigned Surgical Provider 06/01/20 11/28/21 Keisha Dotson MD 909 [place] [address] Assigned Neuroscience Provider 06/04/20 04/01/23 Stacey Briones, [facility] Lead Life Agent Primary Care - CC 08/11/2012/30 Lesley Moody, [facility] Community Health Worker 08/11/2010/01 Mary Mejia Financial Resource Worker 09/02/20 10/06/20 Lita Oseguera Personal Advocate & Liaison (PAL) Family Medicine 09/10/20 09/21/20 Galo Burrell MD Assigned Heart and Vascular Provider 10/05/20 04/02/22 Cristina Wood Financial Resource Worker 10/07/20 10/14/20 Lesley Moody, [facility] Community Health Worker 10/23/2012/30 Meredith Bedoya Financial Resource Worker 10/23/20 11/23/20 Cristina Wood Financial Resource Worker 02/09/21 02/09/21 Diana Desir, [facility] [address] [place] [address] Pharmacist Pharmacist 04/17/21 Rain Galaviz PA-C [address] [place] [address] [place] [address] Physician Rotary Saw Operator Dermatology 04/28/21 Summer Lara MD [address] [place] [address] Assigned OBGYN Provider 05/10/2105/23 Summer Lara MD [address] [place] [address] Assigned OBGYN Provider 05/31/21 2 Summer Lara MD [address] [place] [address] Assigned OBGYN Provider 05/24/2105/30 Tavia Wyatt MD [address] [place] [address] [facility] 07/14/21 Johnny Murillo MD [address] [place] [address] Assigned Musculoskeletal Provider 08/30/21 03/17/22 Erica Farrell APRN INDUSTRIAL TECHNOLOGY TEACHER [address] [facility] [address] [place] [address] Nurse Practitioner Cardiovascular Disease 09/09/21 Teresita Bean, [facility] [address] [place] [address] Pharmacist Pharmacist 09/24/21 09/29/21 Tavia Wyatt MD Assigned Surgical Provider 11/29/21 05/07/22 Diana Desir, [facility] [address] [place] [address] Assigned MTM Pharmacist 01/02/22 Rich Barrett MD [address] 888865 Physician Ophthalmology 01/21/22 Neil Kent MD 500 [place], [place] 8[address]995 Dermatology 02/24/22 Roney Story DPM [address] [facility] [address] [place], [place] [address]97 Assigned Musculoskeletal Provider 03/20/22 08/13/22 Erica Farrell APRN INDUSTRIAL TECHNOLOGY TEACHER 1700 [place] [address] Assigned Heart and Vascular Provider 04/03/22 04/16/22 Diana Desir, [facility] [address] [place], [place] 749316 Assigned MTM Pharmacist 04/07/22 Jelena David OD [address] [facility] [place] [address] Assigned Surgical Provider 05/08/22 10/08/22 Galo Burrell MD Assigned Heart and Vascular Provider 04/17/22 06/11/22 Livan Sharif MD [address] [place] [address] Cardiovascular Disease 05/14/22 Livan Sharif MD [address] [place] [address] Assigned Heart and Vascular Provider 06/12/22 07/23/22 Catherine Cm MD [address] [facility] [address] [place] [address] Cardiovascular Disease 07/21/22 Valery Veronica, PA-C [address] [place] [address] 049495 Physician Rotary Saw Operator Dermatology 07/21/22 Catherine Cm MD [address] [facility] [place] [address] Assigned Heart and Vascular Provider 07/24/22 11/05/22 Johnny Murillo MD [address] [place] [address] 813024 Assigned Musculoskeletal Provider 08/14/22 10/08/22 Brea Quinn APRN INDUSTRIAL TECHNOLOGY TEACHER [address] [place] [address] 214675 Nurse Practitioner Dermatology 09/21/22 Brea Quinn APRN INDUSTRIAL TECHNOLOGY TEACHER [address] [place] [address] [place] 536912 Assigned Surgical Provider 10/09/22 [place] [address] [place] [address] Assigned Musculoskeletal Provider 10/09/22 Livan Sharif MD [address] [place] 289485 Assigned Heart and Vascular Provider 11/06/22 11/12/22 Catherine Cm MD [address] [place] [address] Assigned Heart and Vascular Provider 11/13/22 05/27/23 Sydnie Martinez RN Personal Advocate & Liaison (PAL) Family Medicine 03/28/23 07/31/23 Alfonso Renteria MD [address] [facility] 200 [place] [address] Assigned Neuroscience Provider 04/02/23 Cheng Todd PA-C [address] [place] [address] Assigned PCP 04/30/23 07/15/23 Radha Lomeli APRN INDUSTRIAL TECHNOLOGY TEACHER [address] [place] [address] Assigned Heart and Vascular Provider 05/28/23 Jelena David OD [address] [facility] [place] [address] Ophthalmology 06/15/23 Pao Joseph, VJ Personal Advocate & Liaison (PAL) Nurse 08/01/23 11/07/23 Esha Grimm PA-C [address] [place] [address] Assigned PCP 07/16/23 Valery Veronica PA-C [address] [place] [address] Physician Rotary Saw Operator Dermatology 09/19/23 Rey Tay MD [address] [place] [address] MD Gastroenterology 09/20/23 Rocky Zepeda DO [address] [place] [address] Physician Gastroenterology 09/20/23 Philip Dumont MD [address] [place] [address] Physician Ophthalmology 09/22/23 Meredith Carrera PA-C [address] [place] [address] Assigned Gastroenterology Provider 11/01/23 Neil Kent MD [address] [place] [address] Dermatology 11/02/23 [place] [address] [place] [address] Neurological Surgery 12/26/23 documented as of this encounter
--- OUTSIDE RECORDS SUMMARY | 2024-02-12 05:54 | XMS_ITS | Encounter Summary ---
Author Organization [facility] Address [address] [place] [address] Care Team Providers Care Raise Miner Name Role Phone Lita Oseguera Unavailable Unavailable Marija Edgar APRN RISK MANAGER Primary Care Provider Chanelle Gutierrez APRN CNM Unavailab le Kyara De La Fuente RN Unavailable Marija Edgar APRN RISK MANAGER Unavailable Unavail able Mynor Broussard MD Unavailable [phone] Keisha Dotson MD Unavailable Mary Mejia Unavailable Unavailable Stacey Briones QUILL SKINNER Unavailable Lesley Moody CHW Unavailable [phone] Mary Mejia Unavailable Unavailable Lita Oseguera Unavailable Unavailable Galo Burrell MD Unavailable Unavailable Cristina Wood Unavailable Lesley Moody CHW Unavailable Meredith Bedoya Unavailable Unavailable Cristina Wood Unavailable Diana Desir [facility] Unavailable Rain Galaviz PA-C Unavailable Summer Lara MD Unavailable [phone] Summer Lara MD Unavailable [phone] Summer Lara MD Unavailable + [phone] Tavia Wyatt MD Unavailable Unavailable SemJohnny mckeon MD Unavailable +1- Erica Farrell PAYMASTER OF PURSES RISK MANAGER Unavailable + BeanTeresita RPH Unavailable Tavia Wyatt MD Unavailable Unavailable Diana Desir H Unavailable [phone] Rich Barrett MD Unavailable [phone] Neil Kent MD Unavailable Roney Story DPM Unavailable [phone] Erica Farrell PAYMASTER OF PURSES RISK MANAGER Unavailable + Diana Desir RPH Unavailable [phone] Jelena David OD Unavailable [phone] Galo Burrell MD Unavailable Unavailable Livan Sharif MD Unavailable + Livan Sharif MD Unavailable + Catherine Cm MD Unavailable + Valery Veronica PA-C Unavailable [phone] Catherine Cm MD Unavailable + Johnny Murillo MD Unavailable +1- Brea Quinn PAYMASTER OF PURSES RISK MANAGER Unavailable [phone] Brea Quinn PAYMASTER OF PURSES RISK MANAGER Unavailable [phone] Jose Francisco Johnson MD Unavailable Livan Sharif MD Unavailable + Catherine Cm MD Unavailable + Sydnie Martinez RN Unavailable Unavailable Alfonso Renteria MD Unavailable [phone] Esha Grimm PA-C Primary Care Provider Cheng Todd PA-C Unavailable Radha Lomeli APRN RISK MANAGER Unavailable Jelena David OD Unavailable Pao Joseph RN Unavailable Unavailable Esha GrimmC Unavailable [phone] Valery Veronica PA-C Unavailable Rey Tay MD Unavailable Rocky Zepeda DO Unavailable Philip Dumont MD Unavailable [phone] Meredith Carrera PA-C Unavailable [phone] Neil Kent MD Unavailable Juan Pablo Emmanuel MD Unavailable [phone] Encounter Details Date Type Department Care Team (Late st Contact Info) Description 08/07/2020 [facility] Care Coordination [address] [place] [phone] Lesley Moody, [facility] Social History Tobacco Use Types Packs/Day Years [...] How often do you attend chur or mormon services? More than 4 times [...] Answer Date Recorded PHQ-2 Score 3 06/24/2020 [facility] of Occupat ional Health - Occupational Stress [...] in a mcc (including now)? No 08/11/2020 Education Answer Date [...] COVID-19? No / Unsure 08/06/2020 2:03 PM HIDE SALTER documented as of this encounter Plan of Treatment Upcoming Encounters Date Type Department Care Team (Latest Contact Info) Description 02/14/2024 12:50 PM CDT Therapy Visit [facility] [address] [place] [phone] Rustam Medina, PT [facility] [address] [place] [address] 03/06/2024 3:00 PM CDT Office Visit [facility] [place] [address] [facility] [address] [place] [phone] Radha Lomeli APRN CNP [address] [place] [address] 03/07/2024 9:00 AM CDT Hospital Encounter [facility] [address] [place] [address] 5th [place] [phone] Rocky Zepeda DO 500 [place], [place] [phone] 03/07/2024 9:00 AM CDT - 03/07/2024 9:30 AM CDT Surgery [address] 5th [place] [phone] Rocky Zepeda DO 500 [place], [place] 540685 Esophagoscopy, gastroscopy, duodenoscopy (EGD), combined 06/21/2024 2:00 PM HIDE SALTER Office Visit [facility] [place] [address] [facility], [address] [place] [phone] [place] [address] [place] [address] [place], [place] 293487 Johnny Penn MD [address] [place] [address] Scheduled Procedures Name Priority Associated Diagnoses Date/Ti me ESOPHAGOGASTRODUODENOSCOPY Eosinophilic esophagitis Esophageal dysphagia 03/07/2024 9:00 AM CDT documented as of this encounter Visit Diagnoses Not on filedocumented in this encounter Additional Health Concerns Infection Onset Date Last Indicated Resolved Time Rule Out COVID-19 08/30/2020 08/30/2020 08/30/2020 5:05 PM HIDE SALTER Rule Out COVID-19 09/24/2020 09/24/2020 09/24/2020 9:24 AM CDT Rule Out COVID-19 11/05/2020 11/05/2020 11/06/2020 1:09 PM CDT Rule Out COVID-19 05/11/2021 05/11/2021 05/13/2021 10:18 AM CDT Rule Out COVID-19 07/13/2021 07/13/2021 07/14/2021 3:04 PM HIDE SALTER Rule Out COVID-19 07/18/2021 07/18/2021 07/20/2021 1:56 PM HIDE SALTER COVID-19 07/18/2021 07/18/2021 08/08/2021 11:3 9 PM HIDE SALTER Rule Out COVID-19 12/18/2021 12/18/2021 12/19/2021 11:34 AM CDT Rule Out COVID-19 02/24/2022 02/24/2022 02/25/2022 1:08 PM CDT Rule Out COVID-19 04/26/2022 04/26/2022 04/26/2022 6:47 AM CDT Rule Out COVID-19 05/17/2022 05/17/2022 05/17/2022 10:20 PM HIDE SALTER Rule Out COVID-19 06/09/2022 06/09/2022 06/09/2022 9:35 AM HIDE SALTER COVID-19 06/09/2022 06/09/2022 06/30/2022 11:4 1 PM HIDE SALTER Rule Out COVID-19 11/10/2022 11/10/2022 11/11/2022 12:17 PM CDT Rule Out COVID-19 03/07/2023 03/07/2023 03/07/2023 1:20 PM CDT Rule Out COVID-19 12/26/2023 12/26/2023 12/26/2023 9:50 AM CDT Assessment Noted Time PHQ-9 Depression Total Score: 9 06/25/20 20 7:04 AM HIDE SALTER documented as of this encounter Care Teams Raise Miner Relationship Specialty Start Date End Date Marija Edgar APRN RISK MANAGER PCP - General Nurse Practitioner 04/30/20 04/14/23 Esha Grimm PA-C [address] [place] [phone] PCP - General Family Medicine 05/04/23 Lita Oseguera Personal Advocate & Liaison (PAL) 02/28/20 03/27/23 Chanelle Mccann APRN CNM [address] [address] [facility] 200 [place] [address] Assigned OBGYN Provider 05/02/2005/09 Kyara De La Fuente, RN Specialty Eligibility Examiner Neurology 06/04/20 03/05/21 Marija Edgar APRN RISK MANAGER Assigned PCP 06/08/20 04/29/23 Mynor Broussard MD 6[address] [facility] 500 [place] [address] Assigned Surgical Provider 06/01/20 11/28/21 Keisha Dotson MD 909 [place], [place] [address] Assigned Neuroscience Provider 06/04/20 04/01/23 Mary Mejia Financial Resource Worker 08/07/20 08/21/20 Stacey Briones, QUILL SKINNER Lead Eligibility Examiner Primary Care - CC 08/11/2012/30 Lesley Moody, W Community Health Worker 08/11/2010/01 Mary Mejia Financial Resource Worker 09/02/20 10/06/20 Lita Oseguera Personal Advocate & Liaison (PAL) Family Medicine 09/10/20 09/21/20 Galo Burrell MD Assigned Heart and Vascular Provider 10/05/20 04/02/22 Cristina Wood Financial Resource Worker 10/07/20 10/14/20 Lesley Moody, [facility] Community Health Worker 10/23/2012/30 Meredith Bedoya Financial Resource Worker 10/23/20 11/23/20 Cristina Wood Financial Resource Worker 02/09/21 02/09/21 Diana Desir, [facility] [address] [place], [place] 8[address] Pharmacist Pharmacist 04/17/21 Rain Galaviz PA-C [address] [place] [address] [address] [place], [place] [phone] Physician Administrative Office Assistant Dermatology 04/28/21 Summer Lara MD [address] [place] [address] 85327454 Assigned OBGYN Provider 05/10/2105/23 Summer Lara MD [address] [place] [address] 121444 Assigned OBGYN Provider 05/31/21 2 Summer Lara MD [address] [place] [address] Assigned OBGYN Provider 05/24/2105/30 Tavia Wyatt MD [address] [place] [address] Dermatology 07/14/21 Johnny Murillo MD [address] [place] [address] Assigned Musculoskeletal Provider 08/30/21 03/17/22 Erica Farrell APRN RISK MANAGER [address] [facility] [address] [place] [address] Nurse Practitioner Cardiovascular Disease 09/09/21 Teresita Bean, [facility] [address] [facility] [address] [place], [place] [phone] Pharmacist Pharmacist 09/24/21 09/29/21 Tavia Wyatt MD Assigned Surgical Provider 11/29/21 05/07/22 [facility] [address] [place] [address] Assigned MTM Pharmacist 01/02/22 Rich Barrett MD [address] [facility] [address] [place], [place] [address] Physician Ophthalmology 01/21/22 Neil Kent MD 500 [place], [place] 770965 Dermatology 02/24/22 Roney Story DPM [address] [facility] [address] [place], [place] [address] Assigned Musculoskeletal Provider 03/20/22 08/13/22 Erica Farrell APRN RISK MANAGER 1700 [place] [address] Assigned Heart and Vascular Provider 04/03/22 04/16/22 Diana Desir, [facility] [address] [place] [address] Assigned MTM Pharmacist 04/07/22 Jelena David OD [address] [facility] [place] [address] Assigned Surgical Provider 05/08/22 10/08/22 Galo Burrell MD Assigned Heart and Vascular Provider 04/17/22 06/11/22 Livan Sharif MD [address] [place] [address] Cardiovascular Disease 05/14/22 Livan Sharif MD [address] [place] [address] Assigned Heart and Vascular Provider 06/12/22 07/23/22 Catherine Cm MD [address] [place] [address]75 Cardiovascular Disease 07/21/22 Valery Veronica PA-C 909 [place] [address] Physician Administrative Office Assistant Dermatology 07/21/22 Catherine Cm MD [address] [place] [address] Assigned Heart and Vascular Provider 07/24/22 11/05/22 Johnny Murillo MD [address] [facility] [address] [place] [address] Assigned Musculoskeletal Provider 08/14/22 10/08/22 Brea Quinn APRN RISK MANAGER 500 [place] [address] Nurse Practitioner Dermatology 09/21/22 Brea Quinn APRN RISK MANAGER 6401 [place] [address] Assigned Surgical Provider 10/09/22 [place] [address] [place] [facility] 300 [place] [address] Assigned Musculoskeletal Provider 10/09/22 Livan Sharif MD [address], [facility] [address] [place] [address] Assigned Heart and Vascular Provider 11/06/22 11/12/22 Catherine Cm MD [address] [place], [place] [address] Assigned Heart and Vascular Provider 11/13/22 05/27/23 Sydnie Martinez RN Personal Advocate & Liaison (PAL) Family Medicine 03/28/23 07/31/23 Alfonso Renteria MD [address] [facility] 200 [place] [address] Assigned Neuroscience Provider 04/02/23 Cheng Todd PA-C [address] [place] [address] Assigned PCP 04/30/23 07/15/23 Radha Lomeli APRN RISK MANAGER [address] [facility] [address] [place] [address] Assigned Heart and Vascular Provider 05/28/23 Jelena David OD [address] [facility] [place] [address] Ophthalmology 06/15/23 Pao Joseph, VJ Personal Advocate & Liaison (PAL) Nurse 08/01/23 11/07/23 Esha Grimm PA-C [address] [place] [address] Assigned PCP 07/16/23 Valery Veronica PA-C [address] [place] [address] 386965 Physician Administrative Office Assistant Dermatology 09/19/23 Rey Tay MD [address] [place] [address] 009935 Gastroenterology 09/20/23 Rocky Zepeda DO [address] [place] [address] 853105 Physician Gastroenterology 09/20/23 Philip Dumont MD [address] [place] [address] Physician Ophthalmology 09/22/23 Meredith Carrera PA-C [address] [place] [address] Assigned Gastroenterology Provider 11/01/23 Neil Kent MD [address] [place] [address] Dermatology 11/02/23 [place] [address] [place], [place] 201[address] Neurological Surgery 12/26/23 documented as of this encounter
--- OUTSIDE RECORDS SUMMARY | 2024-02-12 05:54 | XMS_ITS | Encounter Summary ---
Author Organization [facility] Address [address] [place] [address] Care Team Providers Care Structural Engineer Name Role Phone Lita Oseguera Unavailable Unavailable Marija Edgar APRN SOFA INSPECTOR Primary Care Provider Chanelle Gutierrez APRN CNM Unavailab le Kyara De La Fuente RN Unavailable [phone] Marija Edgar APRN SOFA INSPECTOR Unavailable Unavail able Mynor Broussard MD Unavailable [phone] Keisha Dotson MD Unavailable Mary Mejia Unavailable Unavailable Stacey Briones HORIZONTAL RESAW OPERATOR Unavailable Lesley Moody CHW Unavailable [phone] Mary Mejia Unavailable Unavailable Lita Oseguera Unavailable Unavailable Galo Burrell MD Unavailable Unavailable Cristina Wood Unavailable Lesley Moody CHW Unavailable Meredith Bedoya Unavailable Unavailable Cristina Wood Unavailable Diana Desir [facility] Unavailable Rain Galaviz PA-C Unavailable Summer Lara MD Unavailable [phone] Summer Lara MD Unavailable [phone] Summer Lara MD Unavailable + [phone] Tavia Wyatt MD Unavailable Unavailable SemJohnny mckeon MD Unavailable +1- Erica Farrell CONSTRUCTION TECHNOLOGY INSTRUCTOR SOFA INSPECTOR Unavailable + BeanTeresita RPH Unavailable Tavia Wyatt MD Unavailable Unavailable Diana Desir H Unavailable [phone] Rich Barrett MD Unavailable [phone] Neil Kent MD Unavailable Roney Story DPM Unavailable [phone] Erica Farrell CONSTRUCTION TECHNOLOGY INSTRUCTOR SOFA INSPECTOR Unavailable + Diana Desir RPH Unavailable [phone] Jelena David OD Unavailable [phone] Galo Burrell MD Unavailable Unavailable Livan Sharif MD Unavailable + Livan Sharif MD Unavailable + Catherine Cm MD Unavailable + Valery Veronica PA-C Unavailable [phone] Catherine Cm MD Unavailable + Johnny Murillo MD Unavailable +1- Brea Quinn CONSTRUCTION TECHNOLOGY INSTRUCTOR SOFA INSPECTOR Unavailable [phone] Brea Quinn CONSTRUCTION TECHNOLOGY INSTRUCTOR SOFA INSPECTOR Unavailable [phone] Jose Francisco Johnson MD Unavailable Livan Sharif MD Unavailable + Catherine Cm MD Unavailable + Sydnie Martinez RN Unavailable Unavailable Alfonso Renteria MD Unavailable [phone] Esha Grimm PAUcheC Primary Care Provider Cheng Todd PA-C Unavailable [phone] Radha Lomeli APRN SOFA INSPECTOR Unavailable Jelena David OD Unavailable Pao Joseph RN Unavailable Unavailable Esha GrimmC Unavailable [phone] Valery Veronica PA-C Unavailable Rey Tay MD Unavailable Rocky Zepeda DO Unavailable Philip Dumont MD Unavailable Meredith Carrera-C Unavailable Neil Kent MD Unavailable Juan Pablo Emmanuel MD Unavailable [phone] Reason for Visit * Reason Comments Medication Refill Encounter Details Date Type Department Care Team (Late st Contact Info) Description 07/14/[address] [phone] Rakesh Cid PA-C [address] [place] [address] Medication Refill Social History Tobacco [...] COVID-19? No / Unsure 06/24/2020 3:01 PM WHISKEY PROOF READER documented as of this encounter Miscellaneous Notes * Telephone Encounter - Estephania Black RN - 07/16/2020 11:38 AM WHISKEY PROOF READER Routing refill request to provider for review/approval because: Labs out of range: PHQ9> 4 patient was seen 3 weeks ago. Estephania Black RN Flex KEY PROOF READER * Telephone Encounter - Brea Perry RN - 07/16/2020 11:34 AM WHISKEY PROOF READER Routing to correct clinic. KEY PROOF READER documented in this encounter Plan of Treatment Upcoming Encounters Date Type Department Care Team (Latest Contact Info) Description 02/14/2024 12:50 PM CDT Therapy Visit [facility] [address] [phone] Rustam Mednia, PT [facility] [id number] [place] [address] 03/06/2024 3:00 PM CDT Office Visit [facility] [place] [address] [facility] [address] [place] [phone] Radha Lomeli E, CONSTRUCTION TECHNOLOGY INSTRUCTOR SOFA INSPECTOR [address] [place], [place] [address] 03/07/2024 9:00 AM CDT Hospital Encounter [facility] [address] [facility] [facility] [address] [place] [phone] Rocky Zepeda DO [address] [place] [address] 03/07/2024 9:00 AM CDT - 03/07/2024 9:30 AM CDT Surgery [facility] [address] [facility] [facility] [address] [place] [phone] Rocky Zepeda, DO [address] [place], [place] [phone] Esophagoscopy, gastroscopy, duodenoscopy (EGD), combined 06/21/2024 2:00 PM WHISKEY PROOF READER Office Visit [facility] [place] [address] [facility], [address] [place] [address] [place] [address] [place], [place] [phone] Johnny Penn MD [address] [facility] [place] [address] Scheduled Procedures Name Priority Associated Diagnoses Date/Ti md ESOPHAGOGASTRODUODENOSCOPY Eosinophilic esophagitis Esophageal dysphagia 03/07/2024 9:00 AM CDT documented as of this encounter Visit Diagnoses Diagnosis Anxiety Anxiety state, unspecified Eosinophilic esophagitis Esophageal dysphagia Dysphagia, pharyngoesophageal phase documented in this encounter Additional Health Concerns Infection Onset Date Last Indicated Resolved Time Rule Out COVID-19 07/30/2020 07/30/2020 07/30/2020 7:11 PM WHISKEY PROOF READER Rule Out COVID-19 08/30/2020 08/30/2020 08/30/2020 5:05 PM WHISKEY PROOF READER Rule Out COVID-19 09/24/2020 09/24/2020 09/24/2020 9:24 AM CDT Rule Out COVID-19 11/05/2020 11/05/2020 11/06/2020 1:09 PM CDT Rule Out COVID-19 05/11/2021 05/11/2021 05/13/2021 10:18 AM CDT Rule Out COVID-19 07/13/2021 07/13/2021 07/14/2021 3:04 PM WHISKEY PROOF READER Rule Out COVID-19 07/18/2021 07/18/2021 07/20/2021 1:56 PM WHISKEY PROOF READER COVID-19 07/18/2021 07/18/2021 08/08/2021 11:3 9 PM WHISKEY PROOF READER Rule Out COVID-19 12/18/2021 12/18/2021 12/19/2021 11:34 AM CDT Rule Out COVID-19 02/24/2022 02/24/2022 02/25/2022 1:08 PM CDT Rule Out COVID-19 04/26/2022 04/26/2022 04/26/2022 6:47 AM CDT Rule Out COVID-19 05/17/2022 05/17/2022 05/17/2022 10:20 PM WHISKEY PROOF READER Rule Out COVID-19 06/09/2022 06/09/2022 06/09/2022 9:35 AM WHISKEY PROOF READER COVID-19 06/09/2022 06/09/2022 06/30/2022 11:4 1 PM WHISKEY PROOF READER Rule Out COVID-19 11/10/2022 11/10/2022 11/11/2022 12:17 PM CDT Rule Out COVID-19 03/07/2023 03/07/2023 03/07/2023 1:20 PM CDT Rule Out COVID-19 12/26/2023 12/26/2023 12/26/2023 9:50 AM CDT Assessment Noted Time PHQ-9 Depression Total Score: 9 06/25/20 20 7:04 AM WHISKEY PROOF READER documented as of this encounter Care Teams Structural Engineer Relationship Specialty Start Date End Date Marija Edgar APRN CNP PCP - General Nurse Practitioner 04/30/20 04/14/23 Esha Grimm PA-C [address] [place] [address] PCP - General Family Medicine 05/04/23 Lita Oseguera Personal Advocate & Liaison (PAL) 02/28/20 03/27/23 Chanelle Mccann, ARLENE CNM [address] [facility] [address] [place], [place] [address] Assigned OBGYN Provider 05/02/2005/09 Kyara De La Fuente, RN Specialty R D Internship Neurology 06/04/20 03/05/21 Marija Edgar, ARLENE SOFA INSPECTOR Assigned PCP 06/08/20 04/29/23 Mynor Broussard MD [address] [facility] [address] [place], [place] [address] Assigned Surgical Provider 06/01/20 11/28/21 Keisha Dotson MD [address] [place], [place] [address] Assigned Neuroscience Provider 06/04/20 04/01/23 Mary Mejia Financial Resource Worker 08/07/20 08/21/20 Stacey Briones, [facility] Lead R D Internship Primary Care - CC 08/11/2012/30 Lesley Moody, [facility] Community Health Worker 08/11/2010/01 Mary Mejia Financial Resource Worker 09/02/20 10/06/20 Lita Oseguera Personal Advocate & Liaison (PAL) Family Medicine 09/10/20 09/21/20 Galo Burrell MD Assigned Heart and Vascular Provider 10/05/20 04/02/22 Cristina Wood Financial Resource Worker 10/07/20 10/14/20 Lesley Moody, [facility] Community Health Worker 10/23/2012/30 Meredith Bedoya Financial Resource Worker 10/23/20 11/23/20 Cristina Wood Financial Resource Worker 02/09/21 02/09/21 Diana Desir, [facility] [address] [place] [address] Pharmacist Pharmacist 04/17/21 Rain Galaviz PA-C [address] [place] [address] [address] [place], [place] [phone] Physician Electromechanical Equipment Assembler Dermatology 04/28/21 Summer Lara MD [address] [place], [place] [address] Assigned OBGYN Provider 05/10/2105/23 Summer Lara MD [address] [place], [place] [address] Assigned OBGYN Provider 05/31/21 2 Summer Lara MD [address] [place], [place] [address] Assigned OBGYN Provider 05/24/2105/30 Tavia Wyatt MD [address] [place] [address] Dermatology 07/14/21 Johnny Murillo MD [address] [place] [address] Assigned Musculoskeletal Provider 08/30/21 03/17/22 Erica Farrell APRN SOFA INSPECTOR [address] [facility] [address] [place] [address] Nurse Practitioner Cardiovascular Disease 09/09/21 Teresita Bean, [facility] [address] [place] [address] Pharmacist Pharmacist 09/24/21 09/29/21 Tavia Wyatt MD Assigned Surgical Provider 11/29/21 05/07/22 [facility] [address] [place] [address] Assigned MTM Pharmacist 01/02/22 Rich Barrett MD [address] [address] Physician Ophthalmology 01/21/22 Neil Kent MD [address] [place], [place] [address] Dermatology 02/24/22 Roney Story DPM [address] [facility] [address] [place], [place] [address] Assigned Musculoskeletal Provider 03/20/22 08/13/22 Erica Farrell APRN SOFA INSPECTOR [address] [place] [address] Assigned Heart and Vascular Provider 04/03/22 04/16/22 [facility] [address] [place] [address] Assigned MTM Pharmacist 04/07/22 Jelena David OD [address] [facility] [place] [address] Assigned Surgical Provider 05/08/22 10/08/22 Galo Burrell MD Assigned Heart and Vascular Provider 04/17/22 06/11/22 Livan Sharif MD [address] [place] [address] Cardiovascular Disease 05/14/22 Livan Sharif MD [address] [place] [address] Assigned Heart and Vascular Provider 06/12/22 07/23/22 Catherine Cm MD [address] [place], [place] [address] Cardiovascular Disease 07/21/22 Valery Veronica, PAUcheC [address] [place], [place] [address] Physician Electromechanical Equipment Assembler Dermatology 07/21/22 Catherine Cm MD [address] [place] [address] Assigned Heart and Vascular Provider 07/24/22 11/05/22 Johnny Murillo MD [address] [place] [address] Assigned Musculoskeletal Provider 08/14/22 10/08/22 Brea Quinn APRN SOFA INSPECTOR [address] [place] [address] Nurse Practitioner Dermatology 09/21/22 Brea Quinn APRN SOFA INSPECTOR [address] [facility] [place] [address] Assigned Surgical Provider 10/09/22 [place] [address] [facility] [address] [place], [place] [address] Assigned Musculoskeletal Provider 10/09/22 Livan Sharif MD [address] [facility] [address] [place] [address] Assigned Heart and Vascular Provider 11/06/22 11/12/22 Catherine Cm MD [address] [facility] [address] [place] [address] Assigned Heart and Vascular Provider 11/13/22 05/27/23 Sydnie Martinez RN Personal Advocate & Liaison (PAL) Family Medicine 03/28/23 07/31/23 Alfonso Renteria MD [address] [facility] [address] [place] [address] Assigned Neuroscience Provider 04/02/23 Cheng Todd PA-C [address] [place] [address] Assigned PCP 04/30/23 07/15/23 Radha Lomeli APRN SOFA INSPECTOR [address] [facility] [address] [place] [address] Assigned Heart and Vascular Provider 05/28/23 Jelena David OD [address] [facility] [place] [address] MD Ophthalmology 06/15/23 Pao Joseph, VJ Personal Advocate & Liaison (PAL) Nurse 08/01/23 11/07/23 Esha Grimm PA-C [address] [place] [phone] Assigned PCP 07/16/23 Valery Veronica PA-C [address] [place] [id number] Physician Electromechanical Equipment Assembler Dermatology 09/19/23 Rey Tay MD [address] [place] [address] Gastroenterology 09/20/23 Rocky Zepeda DO [address] [place] [address] Physician Gastroenterology 09/20/23 Philip Dumont MD [address] [place] [address] Physician Ophthalmology 09/22/23 Meredith Carrera PA-C [address] [place] [address] Assigned Gastroenterology Provider 11/01/23 Neil Kent MD [address] [place] [address] Dermatology 11/02/23 [place] [address] [place] [address] Neurological Surgery 12/26/23 documented as of this encounter
--- OUTSIDE RECORDS SUMMARY | 2024-02-12 05:54 | XMS_ITS | Encounter Summary ---
Author Organization [facility] Address [address] [place] [address] Care Team Providers Care Cuff Setter Overlock Name Role Phone Lita Oseguera Unavailable Unavailable Marija Edgar APRN HEAT TREATING BLUER Primary Care Provider Chanelle Gutierrez APRN CNM Unavailab le Kyara De La Fuente RN Unavailable [phone] Marija Edgar APRN HEAT TREATING BLUER Unavailable Unavail able Mynor Broussard MD Unavailable [phone] Keisha Dotson MD Unavailable Mary Mejia Unavailable Unavailable Stacey Briones AUTOMATED MANUFACTURING INSTRUCTOR Unavailable Lesley Moody CHW Unavailable [phone] Mary Mejia Unavailable Unavailable Lita Oseguera Unavailable Unavailable Galo Burrell MD Unavailable Unavailable Cristina Wood Unavailable Lesley Moody CHW Unavailable [phone] Meredith Bedoya Unavailable Unavailable Cristina Wood Unavailable Diana Desir [facility] Unavailable [phone] Rain Galaviz PA-C Unavailable [phone] Summer Lara MD Unavailable [phone] Summer Lara MD Unavailable [phone] Summer Lara MD Unavailable + [phone] Tavia Wyatt MD Unavailable Unavailable SemJohnny mckeon MD Unavailable +1- Erica Farrell BEAM WARPER HEAT TREATING BLUER Unavailable + BeanTeresita RPH Unavailable Tavia Wyatt MD Unavailable Unavailable Diana Desir H Unavailable [phone] Rich Barrett MD Unavailable [phone] Neil Kent MD Unavailable Roney Story DPM Unavailable [phone] Erica Farrell BEAM WARPER HEAT TREATING BLUER Unavailable + Diana Desir RPH Unavailable [phone] Jelena David OD Unavailable [phone] Galo Burrell MD Unavailable Unavailable Livan Sharif MD Unavailable + Livan Sharif MD Unavailable + Catherine Cm MD Unavailable + Valery Veronica PA-C Unavailable [phone] Catherine Cm MD Unavailable + Johnny Murillo MD Unavailable +1- Brea Quinn BEAM WARPER HEAT TREATING BLUER Unavailable [phone] Brea Quinn BEAM WARPER HEAT TREATING BLUER Unavailable [phone] Jose Francisco Johnson MD Unavailable Livan Sharif MD Unavailable + Catherine Cm MD Unavailable + Sydnie Martinez RN Unavailable Unavailable Alfonso Renteria MD Unavailable [phone] Esha Grimm PA-C Primary Care Provider Cheng Todd PA-C Unavailable [phone] Radha Lomeli APRN HEAT TREATING BLUER Unavailable Jelena David OD Unavailable Pao Joseph RN Unavailable Unavailable Esha Grimm PA-C Unavailable [phone] Valery Veronica PA-C Unavailable [phone] Rey Tay MD Unavailable Rocky Zepeda DO Unavailable Philip Dumont MD Unavailable Meredith Carrera PA-C Unavailable [phone] Neil Kent MD Unavailable Juan Pablo Emmanuel MD Unavailable Encounter Details Date Type Department Care Team (Late st Contact Info) Description 08/01/2020 [facility] [address] [address] Marija Edgar APRN HEAT TREATING BLUER Social History Tobacco Use Types Packs/Day Years [...] COVID-19? No / Unsure 07/30/2020 4:53 PM BUSINESS COMPUTERS TEACHER documented as of this encounter Miscellaneous Notes * Telephone Encounter - Estephania Black RN - 08/01/2020 9:11 AM BUSINESS COMPUTERS TEACHER Schedule patient for Zio Patch. Detailed message left on phone and through [employer] Estephania Black RN Flex NESS COMPUTERS TEACHER * Telephone Encounter - Marija Edgar APRN CNP - 08/01/2020 8:46 AM BUSINESS COMPUTERS TEACHER Please help patient schedule her zio patch. This order has been in place since 05/2020 and a new order was placed this week. NESS COMPUTERS TEACHER documented in this encounter Plan of Treatment Upcoming Encounters Date Type Department Care Team (Latest Contact Info) Description 02/14/2024 12:50 PM CDT Therapy Visit [address] [address] Rustam Medina, PT [facility] [address] [place] [address] 03/06/2024 3:00 PM CDT Office Visit [facility] [address] [place] [phone] Radha Lomeli APRN HEAT TREATING BLUER [address] [facility] [address] [place] [address] 03/07/2024 9:00 AM CDT Hospital Encounter [facility] [address] [facility] [address] [place] [phone] Rocky Zepeda DO [address] [place], [place] [phone] 03/07/2024 9:00 AM CDT - 03/07/2024 9:30 AM CDT Surgery [facility] [address] [facility] [address] [place] [address] Rocky Zepeda, [address] [place], [place] [address] Esophagoscopy, gastroscopy, duodenoscopy (EGD), combined 06/21/2024 2:00 PM BUSINESS COMPUTERS TEACHER Office Visit [facility] [place] [address] [facility], [address] [place] [address] [place] [address] [place] [address] Johnny Penn MD [address] [place] [address] Scheduled Procedures Name Priority Associated Diagnoses Date/Ti az ESOPHAGOGASTRODUODENOSCOPY Eosinophilic esophagitis Esophageal dysphagia 03/07/2024 9:00 AM CDT documented as of this encounter Visit Diagnoses Not on filedocumented in this encounter Additional Health Concerns Infection Onset Date Last Indicated Resolved Time Rule Out COVID-19 08/30/2020 08/30/2020 08/30/2020 5:05 PM BUSINESS COMPUTERS TEACHER Rule Out COVID-19 09/24/2020 09/24/2020 09/24/2020 9:24 AM CDT Rule Out COVID-19 11/05/2020 11/05/2020 11/06/2020 1:09 PM CDT Rule Out COVID-19 05/11/2021 05/11/2021 05/13/2021 10:18 AM CDT Rule Out COVID-19 07/13/2021 07/13/2021 07/14/2021 3:04 PM BUSINESS COMPUTERS TEACHER Rule Out COVID-19 07/18/2021 07/18/2021 07/20/2021 1:56 PM BUSINESS COMPUTERS TEACHER COVID-19 07/18/2021 07/18/2021 08/08/2021 11:3 9 PM BUSINESS COMPUTERS TEACHER Rule Out COVID-19 12/18/2021 12/18/2021 12/19/2021 11:34 AM CDT Rule Out COVID-19 02/24/2022 02/24/2022 02/25/2022 1:08 PM CDT Rule Out COVID-19 04/26/2022 04/26/2022 04/26/2022 6:47 AM CDT Rule Out COVID-19 05/17/2022 05/17/2022 05/17/2022 10:20 PM BUSINESS COMPUTERS TEACHER Rule Out COVID-19 06/09/2022 06/09/2022 06/09/2022 9:35 AM BUSINESS COMPUTERS TEACHER COVID-19 06/09/2022 06/09/2022 06/30/2022 11:4 1 PM BUSINESS COMPUTERS TEACHER Rule Out COVID-19 11/10/2022 11/10/2022 11/11/2022 12:17 PM CDT Rule Out COVID-19 03/07/2023 03/07/2023 03/07/2023 1:20 PM CDT Rule Out COVID-19 12/26/2023 12/26/2023 12/26/2023 9:50 AM CDT Assessment Noted Time PHQ-9 Depression Total Score: 9 06/25/20 20 7:04 AM BUSINESS COMPUTERS TEACHER documented as of this encounter Care Teams Cuff Setter Overlock Relationship Specialty Start Date End Date Marija Edgar APRN HEAT TREATING BLUER PCP - General Nurse Practitioner 04/30/20 04/14/23 Esha Grimm, PAUcheC [address] [place] [phone] PCP - General Family Medicine 05/04/23 Lita Oseguera Personal Advocate & Liaison (PAL) 02/28/20 03/27/23 Chanelle Mccann APRN CNM [address] [place], [facility] [address] [place] [address] Assigned OBGYN Provider 05/02/2005/09 Kyara De La Fuente, RN Specialty Network Support Technician Neurology 06/04/20 03/05/21 Marija Edgar APRN HEAT TREATING BLUER Assigned PCP 06/08/20 04/29/23 Mynor Broussard MD [address] [address] Assigned Surgical Provider 06/01/20 11/28/21 Keisha Dotson MD [address] [place] [address] Assigned Neuroscience Provider 06/04/20 04/01/23 Mary Mejia Financial Resource Worker 08/07/20 08/21/20 Stacey Briones, [facility] Lead Network Support Technician Primary Care - CC 08/11/2012/30 Lesley Moody, [facility] Community Health Worker 08/11/2010/01 Mary Mejia Financial Resource Worker 09/02/20 10/06/20 Lita Oesguera Personal Advocate & Liaison (PAL) Family Medicine 09/10/20 09/21/20 Galo Burrell MD Assigned Heart and Vascular Provider 10/05/20 04/02/22 Cristina Wood Financial Resource Worker 10/07/20 10/14/20 Lesley Moody, [facility] Community Health Worker 10/23/2012/30 Meredith Bedoya Financial Resource Worker 10/23/20 11/23/20 Cristina Wood Financial Resource Worker 02/09/21 02/09/21 Diana Desir, [facility] [address] [place] [address] Pharmacist Pharmacist 04/17/21 Rain Galaviz PA-C [address] [place] [address] [place] [address] Physician Gas Appliance Adjuster Dermatology 04/28/21 Summer Lara MD [address] [place] [address] Assigned OBGYN Provider 05/10/2105/23 Summer Lara MD [address] [place] [address] Assigned OBGYN Provider 05/31/21 2 Summer Lara MD [address] [place] [address] Assigned OBGYN Provider 05/24/2105/30 Tavia Wyatt MD [address] [place] [address] Dermatology 07/14/21 Johnny Murillo MD [facility] [facility] [address] [place] [address] Assigned Musculoskeletal Provider 08/30/21 03/17/22 Erica Farrell APRN HEAT TREATING BLUER [address] [facility] [address] [place] [address] Nurse Practitioner Cardiovascular Disease 09/09/21 Teresita Bean, [facility] [address] [place] [address] Pharmacist Pharmacist 09/24/21 09/29/21 Tavia Wyatt MD Assigned Surgical Provider 11/29/21 05/07/22 Diana Desir, [facility] [address] [place] [address] Assigned MTM Pharmacist 01/02/22 Rich Barrett MD [address] [address] Physician Ophthalmology 01/21/22 Neil Kent MD [address] [place], [place] [phone] Dermatology 02/24/22 Roney Story DPM [address] [facility] [address] [place] [address] Assigned Musculoskeletal Provider 03/20/22 08/13/22 Erica Farrell APRN HEAT TREATING BLUER [address] [place] [address] Assigned Heart and Vascular Provider 04/03/22 04/16/22 Diana Desir, [facility] [address] [place] [address] Assigned MTM Pharmacist 04/07/22 Jelena David OD [address] [facility] [place] [address] Assigned Surgical Provider 05/08/22 10/08/22 Galo Burrell MD Assigned Heart and Vascular Provider 04/17/22 06/11/22 Livan Sharif MD [address], [facility] [address] [place] [address] Cardiovascular Disease 05/14/22 Livan Sharif MD [address], [facility] [address] [place] [address] Assigned Heart and Vascular Provider 06/12/22 07/23/22 Catherine Cm MD [address] [facility] [address] [place] [address] Cardiovascular Disease 07/21/22 Valery Veronica, PAUcheC [address] [place] [phone] Physician Gas Appliance Adjuster Dermatology 07/21/22 Catherine Cm MD [address] [facility] [address] [place] [address] Assigned Heart and Vascular Provider 07/24/22 11/05/22 Johnny Murillo MD [address] [place] [address] Assigned Musculoskeletal Provider 08/14/22 10/08/22 Brea Quinn APRN HEAT TREATING BLUER [address] [place] [address] Nurse Practitioner Dermatology 09/21/22 Brea Quinn APRN HEAT TREATING BLUER [address] [place] [address] [address] [place] [address] Assigned Surgical Provider 10/09/22 [place] [address] [address] [facility] [address] [place] [address] Assigned Musculoskeletal Provider 10/09/22 Livan Sharif MD [address], [facility] [address] [place] [address] Assigned Heart and Vascular Provider 11/06/22 11/12/22 Catherine Cm MD [address] [facility] [address] [place] [address] Assigned Heart and Vascular Provider 11/13/22 05/27/23 Sydnie Martinez RN Personal Advocate & Liaison (PAL) Family Medicine 03/28/23 07/31/23 Alfonso Renteria MD [address] [facility] [address] [place] [address] Assigned Neuroscience Provider 04/02/23 Cheng Todd PA-C [address] [place] [address] Assigned PCP 04/30/23 07/15/23 Radha Lomeli APRN HEAT TREATING BLUER [address] [place] [address] Assigned Heart and Vascular Provider 05/28/23 Jelena David OD [address] [facility] [place] [address] MD Ophthalmology 06/15/23 Pao Joseph, RN Personal Advocate & Liaison (PAL) Nurse 08/01/23 11/07/23 Esha Grimm PA-C [address] [place] [phone] Assigned PCP 07/16/23 Valery Veronica PA-C [address] [place] [address] Physician Gas Appliance Adjuster Dermatology 09/19/23 Rey Tay MD [address] [place] [address] 260495 MD Gastroenterology 09/20/23 Rocky Zepeda DO [address] [place] [address] 889495 Physician Gastroenterology 09/20/23 Philip Dumont MD [address] [place] [address] 386265 Physician Ophthalmology 09/22/23 Meredith Carrera PA-C [address] [place] [address] [phone] Assigned Gastroenterology Provider 11/01/23 Neil Kent MD [address] [place] [address] [phone] Dermatology 11/02/23 [place] [address] [place] [address] Neurological Surgery 12/26/23 documented as of this encounter
--- OUTSIDE RECORDS SUMMARY | 2024-02-12 05:54 | XMS_ITS | Encounter Summary ---
Author Organization [facility] Address [address] [place] [address] Care Team Providers Care Farm Mechanic Name Role Phone Lita Oseguera Unavailable Unavailable Marija Edgar APRN OPERATING SYSTEMS PROGRAMMER Primary Care Provider Chanelle Gutierrez APRN CNM Unavailab le Kyara De La Fuente RN Unavailable [phone] Marija Edgar APRN OPERATING SYSTEMS PROGRAMMER Unavailable Unavail able Mynor Broussard MD Unavailable [phone] Keisha Dotson MD Unavailable Mary Mejia Unavailable Unavailable Stacey Briones PAYMENT PROCESSOR Unavailable Lesley Moody CHW Unavailable Mary Mejia Unavailable Unavailable Lita Oseguera Unavailable Unavailable Galo Burrell MD Unavailable Unavailable Cristina Wood Unavailable Lesley Moody CHW Unavailable [phone] Meredith Bedoya Unavailable Unavailable Cristina Wood Unavailable Diana Desir [facility] Unavailable [phone] Rain Galaviz PA-C Unavailable Summer Lara MD Unavailable [phone] Summer Lara MD Unavailable [phone] Summer Lara MD Unavailable + [phone] Tavia Wyatt MD Unavailable Unavailable SemJohnny mckeon MD Unavailable +1- Erica Farrell HVAC LEAD OPERATING SYSTEMS PROGRAMMER Unavailable + BeanTeresita RPH Unavailable Tavia Wyatt MD Unavailable Unavailable Diana Desir H Unavailable [phone] Rich Barrett MD Unavailable [phone] Neli Kent MD Unavailable Roney Story DPM Unavailable [phone] Erica Farrell HVAC LEAD OPERATING SYSTEMS PROGRAMMER Unavailable + Diana Desir RPH Unavailable [phone] Jelena David OD Unavailable [phone] Galo Burrell MD Unavailable Unavailable Livan Sharif MD Unavailable + Livan Sharif MD Unavailable + Catherine Cm MD Unavailable + Valery Veronica PA-C Unavailable [phone] Catherine Cm MD Unavailable + Johnny Murillo MD Unavailable +1- Brea Quinn HVAC LEAD OPERATING SYSTEMS PROGRAMMER Unavailable [phone] Brea Quinn HVAC LEAD OPERATING SYSTEMS PROGRAMMER Unavailable [phone] Jose Francisco Johnson MD Unavailable Livan Sharif MD Unavailable + Catherine Cm MD Unavailable + Sydnie Martinez RN Unavailable Unavailable Alfonso Renteria MD Unavailable [phone] Esha Grimm PA-C Primary Care Provider [phone] Cheng Todd PA-C Unavailable Radha Lomeli APRN OPERATING SYSTEMS PROGRAMMER Unavailable Jelena David OD Unavailable Pao Joseph RN Unavailable Unavailable Esha Grimm PA-C Unavailable [phone] Valery Veronica PA-C Unavailable Rey Tay MD Unavailable Rocky Zepeda DO Unavailable Philip Dumont MD Unavailable Meredith Carrera PA-C Unavailable Neil Kent MD Unavailable Juan Pablo Emmanuel MD Unavailable [phone] Encounter Details Date Type Department Care Team (Late st Contact Info) Description 07/29/2020 MyC Medical Advice [facility] [address] [facility], [address] [place] [address] Keisha Dotson MD [address] [place] [address] Social History Tobacco Use Types [...] COVID-19? No / Unsure 07/30/2020 4:53 PM NUCLEAR WEAPONS SPECIALIST documented as of this encounter Plan of Treatment Upcoming Encounters Date Type Department Care Team (Latest Contact Info) Description 02/14/2024 12:50 PM CDT Therapy Visit [facility] [place] [id number] [place] [phone] Rustam Medina, PT [facility] [address] [place] [address] 03/06/2024 3:00 PM CDT Office Visit [facility] [address] [facility] [address] [place] [phone] Radha Lomeli APRN OPERATING SYSTEMS PROGRAMMER [address] [facility] [address] [place] [address] 03/07/2024 9:00 AM CDT Hospital Encounter [address] [place] [phone] Rocky Zepeda DO [address] [place], [place] [address] 03/07/2024 9:00 AM CDT - 03/07/2024 9:30 AM CDT Surgery [address] [place] [phone] Rocky Zepeda DO [address] [place], [place] [address] Esophagoscopy, gastroscopy, duodenoscopy (EGD), combined 06/21/2024 2:00 PM NUCLEAR WEAPONS SPECIALIST Office Visit [facility] [place] [address] [place] [address], [address] [place] [phone] [place] [address] [place], [place] [address] Johnny Penn MD [address] [place], [place] [phone] Scheduled Procedures Name Priority Associated Diagnoses Date/Ti tx ESOPHAGOGASTRODUODENOSCOPY Eosinophilic esophagitis Esophageal dysphagia 03/07/2024 9:00 AM CDT documented as of this encounter Visit Diagnoses Not on filedocumented in this encounter Additional Health Concerns Infection Onset Date Last Indicated Resolved Time Rule Out COVID-19 07/30/2020 07/30/2020 07/30/2020 7:11 PM NUCLEAR WEAPONS SPECIALIST Rule Out COVID-19 08/30/2020 08/30/2020 08/30/2020 5:05 PM NUCLEAR WEAPONS SPECIALIST Rule Out COVID-19 09/24/2020 09/24/2020 09/24/2020 9:24 AM CDT Rule Out COVID-19 11/05/2020 11/05/2020 11/06/2020 1:09 PM CDT Rule Out COVID-19 05/11/2021 05/11/2021 05/13/2021 10:18 AM CDT Rule Out COVID-19 07/13/2021 07/13/2021 07/14/2021 3:04 PM NUCLEAR WEAPONS SPECIALIST Rule Out COVID-19 07/18/2021 07/18/2021 07/20/2021 1:56 PM NUCLEAR WEAPONS SPECIALIST COVID-19 07/18/2021 07/18/2021 08/08/2021 11:3 9 PM NUCLEAR WEAPONS SPECIALIST Rule Out COVID-19 12/18/2021 12/18/2021 12/19/2021 11:34 AM CDT Rule Out COVID-19 02/24/2022 02/24/2022 02/25/2022 1:08 PM CDT Rule Out COVID-19 04/26/2022 04/26/2022 04/26/2022 6:47 AM CDT Rule Out COVID-19 05/17/2022 05/17/2022 05/17/2022 10:20 PM NUCLEAR WEAPONS SPECIALIST Rule Out COVID-19 06/09/2022 06/09/2022 06/09/2022 9:35 AM NUCLEAR WEAPONS SPECIALIST COVID-19 06/09/2022 06/09/2022 06/30/2022 11:4 1 PM NUCLEAR WEAPONS SPECIALIST Rule Out COVID-19 11/10/2022 11/10/2022 11/11/2022 12:17 PM CDT Rule Out COVID-19 03/07/2023 03/07/2023 03/07/2023 1:20 PM CDT Rule Out COVID-19 12/26/2023 12/26/2023 12/26/2023 9:50 AM CDT Assessment Noted Time PHQ-9 Depression Total Score: 9 06/25/20 20 7:04 AM NUCLEAR WEAPONS SPECIALIST documented as of this encounter Care Teams Farm Mechanic Relationship Specialty Start Date End Date Marija Edgar APRN OPERATING SYSTEMS PROGRAMMER PCP - General Nurse Practitioner 04/30/20 04/14/23 Esha Grimm PA-C [address] [place] [phone] PCP - General Family Medicine 05/04/23 Lita Oseguera Personal Advocate & Liaison (PAL) 02/28/20 03/27/23 Chanelle Mccann APRN CNAdam [id number] [place] [address] [address] [place] [address] Assigned OBGYN Provider 05/02/2005/09 Kyara De La Fuente, RN Specialty Ada Accommodation Consultant Neurology 06/04/20 03/05/21 Marija Edgar APRN OPERATING SYSTEMS PROGRAMMER Assigned PCP 06/08/20 04/29/23 Mynor Broussard MD [address] [facility] 500 [place] [address] Assigned Surgical Provider 06/01/20 11/28/21 Keisha Dotson MD [address] [place], [place] [address] Assigned Neuroscience Provider 06/04/20 04/01/23 Nikiatimothy Mary Financial Resource Worker 08/07/20 08/21/20 Stacey Briones, [facility] Lead Ada Accommodation Consultant Primary Care - CC 08/11/2012/30 Lesley Moody, [facility] Community Health Worker 08/11/2010/01 Mary Mejia Financial Resource Worker 09/02/20 10/06/20 Lita Oseguera Personal Advocate & Liaison (PAL) Family Medicine 09/10/20 09/21/20 Galo Burrell MD Assigned Heart and Vascular Provider 10/05/20 04/02/22 Cristina Wood Financial Resource Worker 10/07/20 10/14/20 Lesley Moody, [facility] Community Health Worker 10/23/2012/30 Meredith Bedoya Financial Resource Worker 10/23/20 11/23/20 Cristina Wood Financial Resource Worker 02/09/21 02/09/21 Diana Desir, [facility] [address] [place] [address] Pharmacist Pharmacist 04/17/21 Rain Galaviz PA-C [address] [place] [address] [facility] [address] Physician Departure Clerk Dermatology 04/28/21 Summer Lara MD [address] [place] [address] Assigned OBGYN Provider 05/10/2105/23 Summer Lara MD [address] [place] [address] Assigned OBGYN Provider 05/31/21 Summer Lara MD [address] [place] [address] Assigned OBGYN Provider 05/24/2105/30 Tavia Wyatt MD [address] [place] [address] [facility] 07/14/21 Johnny Murillo MD [address] [place] [address] Assigned Musculoskeletal Provider 08/30/21 03/17/22 Erica Farrell APRN OPERATING SYSTEMS PROGRAMMER [address] [facility] [address] [place] [address] Nurse Practitioner Cardiovascular Disease 09/09/21 Teresita Bean [facility] [address] [place] [address] Pharmacist Pharmacist 09/24/21 09/29/21 Tavia Wyatt MD Assigned Surgical Provider 11/29/21 05/07/22 Diana Desir, [facility] [address] [place] [address] Assigned MTM Pharmacist 01/02/22 Rich Barrett MD [address] [facility] [address] [place] [address] Physician Ophthalmology 01/21/22 Neil Kent MD 500 [place] [address] Dermatology 02/24/22 [place] [address] [facility] [address] [place], [place] [address] Assigned Musculoskeletal Provider 03/20/22 08/13/22 Erica Farrell APRN OPERATING SYSTEMS PROGRAMMER [address] [place] [address] Assigned Heart and Vascular Provider 04/03/22 04/16/22 [facility] [address] [place], [place] [address] Assigned MTM Pharmacist 04/07/22 [place] David [place] [address] [facility] [place] [address] Assigned Surgical Provider 05/08/22 10/08/22 Galo Burrell MD Assigned Heart and Vascular Provider 04/17/22 06/11/22 Livan Sharif MD [address] [place] [address] Cardiovascular Disease 05/14/22 Livan Sharif MD [address] [place] [address] Assigned Heart and Vascular Provider 06/12/22 07/23/22 Catherine Cm MD [address] [facility]00 [place] [address] Cardiovascular Disease 07/21/22 Valery Veronica, PA-C [address] [place], [place] [address] Physician Departure Clerk Dermatology 07/21/22 Catherine Cm MD [address] [place] [place] [id number] [place] [address] Assigned Heart and Vascular Provider 07/24/22 11/05/22 Johnny Murillo MD [address] [place] [address] [id number] Assigned Musculoskeletal Provider 08/14/22 10/08/22 Brea Quinn APRN OPERATING SYSTEMS PROGRAMMER [address] [place] [address] 9[address] Nurse Practitioner Dermatology 09/21/22 Brea Quinn APRN OPERATING SYSTEMS PROGRAMMER [address] [place] [address] [place] 713202 Assigned Surgical Provider 10/09/22 [place] [address] [place] [address] Assigned Musculoskeletal Provider 10/09/22 Livan Sharif MD [address], [facility] [address] [place] [address] Assigned Heart and Vascular Provider 11/06/22 11/12/22 Catherine Cm MD [address] [place] [address] Assigned Heart and Vascular Provider 11/13/22 05/27/23 Sydnie Martinez, RN Personal Advocate & Liaison (PAL) Family Medicine 03/28/23 07/31/23 Alfonso Renteria MD [address] [facility] 200 [place] [address] Assigned Neuroscience Provider 04/02/23 Cheng Todd PA-C [address] [place] [address] Assigned PCP 04/30/23 07/15/23 Radha Lomeli APRN OPERATING SYSTEMS PROGRAMMER [address] [place] [address] Assigned Heart and Vascular Provider 05/28/[address] [facility] [facility] [place] [address] Ophthalmology 06/15/23 Pao Joseph, VJ Personal Advocate & Liaison (PAL) Nurse 08/01/23 11/07/23 Esha Grimm PA-C [address] [place] [phone] Assigned PCP 07/16/23 Valery Veronica PA-C [address] [place] [address] Physician Departure Clerk Dermatology 09/19/23 Rey Tay MD [address] [place] [address] MD Gastroenterology 09/20/23 Rocky Zepeda DO [address] [place] [address] Physician Gastroenterology 09/20/23 Philip Dumont MD [address] [place] [address] Physician Ophthalmology 09/22/23 Meredith Carrera PA-C [address] [place] [address] Assigned Gastroenterology Provider 11/01/23 Neil Kent MD [address] [place] [address] Dermatology 11/02/23 [place] [address] [place] [address] Neurological Surgery 12/26/23 documented as of this encounter
--- OUTSIDE RECORDS SUMMARY | 2024-02-12 05:54 | XMS_ITS | Encounter Summary ---
Author Organization [facility] Address [address] [place] [address] Care Team Providers Care Technical Agronomist Name Role Phone Lita Oseguera Unavailable Unavailable Marija Edgar APRN [employer] Primary Care Provider Chanelle Gutierrez APRN CNM Unavailab le Kyara De La Fuente RN Unavailable [phone] Marija Edgar APRN [employer] Unavailable Unavail able Mynor Broussard MD Unavailable [phone] Keisha Dotson MD Unavailable Mary Mejia Unavailable Unavailable Stacey Briones TREE TRIMMING LINE TECHNICIAN Unavailable [phone] Lesley Moody CHW Unavailable Mary Mejia Unavailable Unavailable Lita Oseguera Unavailable Unavailable Galo Burrell MD Unavailable Unavailable Cristina Wood Unavailable Lesley Moody CHW Unavailable Meredith Bedoya Unavailable Unavailable Cristina Wood Unavailable Diana Dseir [facility] Unavailable Rain Galaviz PA-C Unavailable Summer Lara MD Unavailable [phone] Summer Lara MD Unavailable [phone] Summer Lara MD Unavailable + [phone] Tavia Wyatt MD Unavailable Unavailable SemJohnny mckeon MD Unavailable +[phone] Erica Farrell ELECTRO MECHANICAL SOLAR TECHNICIAN [employer] Unavailable + BeanTeresita RPH Unavailable Tavia Wyatt MD Unavailable Unavailable Diana Desir H Unavailable [phone] Rich Barrett MD Unavailable [phone] Neil Kent MD Unavailable Roney Story DPM Unavailable [phone] Erica Farrell ELECTRO MECHANICAL SOLAR TECHNICIAN [employer] Unavailable + Diana Desir RPH Unavailable [phone] Jelena David OD Unavailable [phone] Galo Burrell MD Unavailable Unavailable Livan Sharif MD Unavailable + Livan Sharif MD Unavailable + Catherine Cm MD Unavailable + Valery Veronica PA-C Unavailable [phone] Catherine Cm MD Unavailable + Johnny Murillo MD Unavailable +1- Brea Quinn ELECTRO MECHANICAL SOLAR TECHNICIAN [employer] Unavailable [phone] Brea Quinn ELECTRO MECHANICAL SOLAR TECHNICIAN [employer] Unavailable [phone] Jose Francisco Johnson MD Unavailable Livan Sharif MD Unavailable + Catherine Cm MD Unavailable + Sydnie Martinez RN Unavailable Unavailable Alfonso Renteria MD Unavailable [phone] Esha Grimm PA-C Primary Care Provider [phone] Cheng Todd PA-C Unavailable Radha Lomeli APRN [employer] Unavailable Jelena David OD Unavailable [phone] Pao Joseph RN Unavailable Unavailable Esha Grimm PA-C Unavailable [phone] Valery Veronica PA-C Unavailable [phone] Rey Tay MD Unavailable Rocky Zepeda DO Unavailable Philip Dumont MD Unavailable Meredith Carrera PA-C Unavailable Neil Kent MD Unavailable Juan Pablo Emmanuel MD Unavailable Encounter Details Date Type Department Care Team (Late st Contact Info) Description 07/17/2020 MyC Medical Advice [facility] Epilepsy Care [address] [facility], [address] [place] [address] Keisha Dotson MD [address] [place] [address] Social History Tobacco Use Types [...] COVID-19? No / Unsure 06/24/2020 3:01 PM ENGINEERING DESIGN SUPERVISOR documented as of this encounter Miscellaneous Notes * Telephone Encounter - Kyara De La Fuente RN - 07/23/2020 1:41 PM CST Patient contacted the office by [place] to report intolerability of levetiracetam. She stayed [...] her shewouldn't need medication her whole life. NEERING DESIGN SUPERVISOR documented in this encounter Plan of Treatment Upcoming Encounters Date Type Department Care Team (Latest Contact Info) Description 02/14/2024 12:50 PM CDT Therapy Visit [facility] [address] [place] [phone] Rustam Medina, PT [facility] [id number] [place] [address] 03/06/2024 3:00 PM CDT Office Visit [facility] [address] [facility] [address] [place] [phone] Radha Lomeli, ELECTRO MECHANICAL SOLAR TECHNICIAN [employer] [facility] [facility] [address] [place] [id number] 03/07/2024 9:00 AM CDT Hospital Encounter [facility] [place] [address] [place] [address] 5th [place] [phone] Rocky Zepeda, [address] [place], [place] [phone] 03/07/2024 9:00 AM CDT - 03/07/2024 9:30 AM CDT Surgery [facility] [place] [address] [facility] 5th [place] [phone] Rocky Zepeda DO [address] [place], [place] [phone] Esophagoscopy, gastroscopy, duodenoscopy (EGD), combined 06/21/2024 2:00 PM ENGINEERING DESIGN SUPERVISOR Office Visit [facility] Neurology [facility]ics - [address], [address] [place] [address] [place] [address] [place] [address] Johnny Penn MD [address] [facility] [place] [address] Scheduled Procedures Name Priority Associated Diagnoses Date/Ti az ESOPHAGOGASTRODUODENOSCOPY Eosinophilic esophagitis Esophageal dysphagia 03/07/2024 9:00 AM CDT documented as of this encounter Visit Diagnoses Not on filedocumented in this encounter Additional Health Concerns Infection Onset Date Last Indicated Resolved Time Rule Out COVID-19 07/30/2020 07/30/2020 07/30/2020 7:11 PM ENGINEERING DESIGN SUPERVISOR Rule Out COVID-19 08/30/2020 08/30/2020 08/30/2020 5:05 PM ENGINEERING DESIGN SUPERVISOR Rule Out COVID-19 09/24/2020 09/24/202009/24/2020 9:24 AM CDT Rule Out COVID-19 11/05/2020 11/05/2020 11/06/2020 1:09 PM CDT Rule Out COVID-19 05/11/2021 05/11/2021 05/13/2021 10:18 AM CDT Rule Out COVID-19 07/13/2021 07/13/2021 07/14/2021 3:04 PM ENGINEERING DESIGN SUPERVISOR Rule Out COVID-19 07/18/2021 07/18/2021 07/20/2021 1:56 PM ENGINEERING DESIGN SUPERVISOR COVID-19 07/18/2021 07/18/2021 08/08/2021 11:3 9 PM ENGINEERING DESIGN SUPERVISOR Rule Out COVID-19 12/18/2021 12/18/2021 12/19/2021 11:34 AM CDT Rule Out COVID-19 02/24/2022 02/24/2022 02/25/2022 1:08 PM CDT Rule Out COVID-19 04/26/2022 04/26/2022 04/26/2022 6:47 AM CDT Rule Out COVID-19 05/17/2022 05/17/2022 05/17/2022 10:20 PM ENGINEERING DESIGN SUPERVISOR Rule Out COVID-19 06/09/2022 06/09/2022 06/09/2022 9:35 AM ENGINEERING DESIGN SUPERVISOR COVID-19 06/09/2022 06/09/2022 06/30/2022 11:4 1 PM ENGINEERING DESIGN SUPERVISOR Rule Out COVID-19 11/10/2022 11/10/2022 11/11/2022 12:17 PM CDT Rule Out COVID-19 03/07/2023 03/07/2023 03/07/2023 1:20 PM CDT Rule Out COVID-19 12/26/2023 12/26/2023 12/26/2023 9:50 AM CDT Assessment Noted Time PHQ-9 Depression Total Score: 9 06/25/20 20 7:04 AM ENGINEERING DESIGN SUPERVISOR documented as of this encounter Care Teams Technical Agronomist Relationship Specialty Start Date End Date Marija Edgar APRN [employer] PCP - General Nurse Practitioner 04/30/20 04/14/23 Esha Grimm PA-C [address] [place] [phone] PCP - General Family Medicine 05/04/23 Lita Oseguera Personal Advocate & Liaison (PAL) 02/28/20 03/27/23 Chanelle Mccann APRN CNM [address] [facility] [address] [place] [address] Assigned OBGYN Provider 05/02/2005/09 Kyara De La Fuente, VJ Specialty Lpn Rn Neurology 06/04/20 03/05/21 Marija Edgar APRN [employer] Assigned PCP 06/08/20 04/29/23 Mynor Broussard MD [address] [facility] 500 [place] [address] Assigned Surgical Provider 06/01/20 11/28/21 Keisha Dotson MD 9[address] [place] [address] Assigned Neuroscience Provider 06/04/20 04/01/23 Mary Mejia Financial Resource Worker 08/07/20 08/21/20 Stacey Briones, [facility] Lead Lpn Rn Primary Care - CC 08/11/2012/30 Lesley Moody, [facility] Community Health Worker 08/11/2010/01 Mary Mejia Financial Resource Worker 09/02/20 10/06/20 Lita Oseguera Personal Advocate & Liaison (PAL) Family Medicine 09/10/20 09/21/20 Galo Burrell MD Assigned Heart and Vascular Provider 10/05/20 04/02/22 Cristina Wood Financial Resource Worker 10/07/20 10/14/20 Lesley Moody, [facility] Community Health Worker 10/23/2012/30 Meredith Bedoya Financial Resource Worker 10/23/20 11/23/20 Cristina Wood Financial Resource Worker 02/09/21 02/09/21 Diana Desir, [facility] [address] [facility] [place], [place] [address] Pharmacist Pharmacist 04/17/21 Rain Galaviz PA-C [address] [place] [address] [address] [place], [place] [phone] Physician Cardiologist Dermatology 04/28/21 Summer Lara MD [address] [place] [address] [phone] Assigned OBGYN Provider 05/10/2105/23 Summer Lara MD [address] [place] [address] [phone] Assigned OBGYN Provider 05/31/21 2 Summer Lara MD [address] [place] [address] [phone] Assigned OBGYN Provider 05/24/2105/30 Tavia Wyatt MD [address] [place] [address] Dermatology 07/14/21 Johnny Murillo MD [address] [place] [address] Assigned Musculoskeletal Provider 08/30/21 03/17/22 Erica Farrell APRN [employer] [address] [facility] [address] [place], [place] [phone] Nurse Practitioner Cardiovascular Disease 09/09/21 Teresita Bean, [facility] [address] [place] [phone] Pharmacist Pharmacist 09/24/21 09/29/21 Tavia Wyatt MD Assigned Surgical Provider 11/29/21 05/07/22 [facility] [address] [place] [address] Assigned MTM Pharmacist 01/02/22 Rich Barrett MD [address] [facility] [address] [place], [place] [phone] Physician Ophthalmology 01/21/22 Neil Kent MD [address] [place] [address] Dermatology 02/24/22 Roney Story DPM [address] [facility] [address] [place] [address] Assigned Musculoskeletal Provider 03/20/22 08/13/22 Erica Farrell APRN [employer] [address] [place] [address] Assigned Heart and Vascular Provider 04/03/22 04/16/22 Diana Desir, [facility] [address] [place] [address] Assigned MTM Pharmacist 04/07/22 [place]elena David OD [address] [place] [address] Assigned Surgical Provider 05/08/22 10/08/22 Galo Burrell MD Assigned Heart and Vascular Provider 04/17/22 06/11/22 Livan Sharif MD [address] [place] [address] Cardiovascular Disease 05/14/22 Livan Sharif MD [address] [place] [phone] Assigned Heart and Vascular Provider 06/12/22 07/23/22 Catherine Cm MD [address] [place] [address] Cardiovascular Disease 07/21/22 Valery Veronica PA-C [address] [place] [address] Physician Cardiologist Dermatology 07/21/22 Catherine Cm MD [address] [place] [address] Assigned Heart and Vascular Provider 07/24/22 11/05/22 Johnny Murillo MD [address] [place], [place] [address] Assigned Musculoskeletal Provider 08/14/22 10/08/22 Brea Quinn APRN [employer] [address] [place], [place] [address] Nurse Practitioner Dermatology 09/21/22 Brea Quinn APRN [employer] [address] [place], [place] 8[address] Assigned Surgical Provider 10/09/22 [place] [address] [facility] [address] [place], [place] [address] Assigned Musculoskeletal Provider 10/09/22 Livan Sharif MD [address], [facility] [address] [place] [address] Assigned Heart and Vascular Provider 11/06/22 11/12/22 Catherine Cm MD [address] [facility] [address] [place] [address] Assigned Heart and Vascular Provider 11/13/22 05/27/23 Sydnie Martinez RN Personal Advocate & Liaison (PAL) Family Medicine 03/28/23 07/31/23 Alfonso Renteria MD [address] [facility] 200 [place], [place] [address] Assigned Neuroscience Provider 04/02/23 Cheng Todd PA-C [address] [place] [address] [phone] Assigned PCP 04/30/23 07/15/23 Armani Radha ARLENE Stovall [employer] [address] [facility] [address] [place], [place] [address] Assigned Heart and Vascular Provider 05/28/23 Jelena David OD [address] [place] [address] Ophthalmology 06/15/23 Pao Joseph, VJ Personal Advocate & Liaison (PAL) Nurse 08/01/23 11/07/23 Esha Grimm PA-C [address] [place] [phone] Assigned PCP 07/16/23 Valery Veronica PA-C [address] [place] [address] [phone] Physician Cardiologist Dermatology 09/19/23 Rey Tay MD [address] [place] [address] [phone] Gastroenterology 09/20/23 Rocky Zepeda DO [address] [place] [address] 534975 Physician Gastroenterology 09/20/23 Philip Dumont MD [address] [place] [address] [phone] Physician Ophthalmology 09/22/23 Meredith Carrera PA-C [address] [place] [address] Assigned Gastroenterology Provider 11/01/23 Neil Kent MD [address] [address] Dermatology 11/02/23 [place] [address] [place] [address] Neurological Surgery 12/26/23 documented as of this encounter
--- OUTSIDE RECORDS SUMMARY | 2024-02-12 05:54 | XMS_ITS | Encounter Summary ---
Author Organization [facility] Address [address] [place] [address] Care Team Providers Care Metallurgist Helper Name Role Phone Lita Oseguera Unavailable Unavailable Marija Edgar APRN CRYSTAL SYRUP MAKER Primary Care Provider Chanelle Gutierrez APRN CNM Unavailab le Kyara De La Fuente RN Unavailable [phone] Marija Edgar APRN CRYSTAL SYRUP MAKER Unavailable Unavail able Mynor Broussard MD Unavailable [phone] Keisha Dotson MD Unavailable [phone] Stacey Briones MARKETING DESIGNER Unavailable Lesley Moody CHW Unavailable [phone] Mary Mejia Unavailable Unavailable Lita Oseguera Unavailable Unavailable Galo Burrell MD Unavailable Unavailable Cristina Wood Unavailable Lesley Moody CHW Unavailable [phone] Meredith Bedoya Unavailable Unavailable Cristina Wood Unavailable Diana Desir [facility] Unavailable Rain Galaviz PA-C Unavailable Summer Lara MD Unavailable [phone] Summer Lara MD Unavailable [phone] Summer Lara MD Unavailable + [phone] Tavia Wyatt MD Unavailable Unavailable SemJohnny mckeon MD Unavailable +1- Erica Farrell CHANGE LEAD CRYSTAL SYRUP MAKER Unavailable + BeanTeresita H Unavailable Tavia Wyatt MD Unavailable Unavailable Diana Desir [facility] Unavailable [phone] Rich Barrett MD Unavailable + Neil Knet MD Unavailable + Roney Story DPM Unavailable [phone] Erica Farrell CHANGE LEAD CRYSTAL SYRUP MAKER Unavailable + Diana Desir [facility] Unavailable +[phone] Jelena David Radha Unavailable [phone] Galo Burrell MD Unavailable Unavailable Livan Sharif MD Unavailable + Livan Sharif MD Unavailable + Catherine Cm MD Unavailable + Valery Veronica PA-C Unavailable +[phone] Catherine Cm MD Unavailable + Johnny Murillo MD Unavailable +1- Brea Quinn CHANGE LEAD CRYSTAL SYRUP MAKER Unavailable +1- Brea Quinn CHANGE LEAD CRYSTAL SYRUP MAKER Unavailable [phone] Jose Francisco Johnson MD Unavailable + Livan Sharif MD Unavailable + Catherine Cm MD Unavailable + Sydnie Martinez RN Unavailable Unavailable Alfonso Renteria MD Unavailable [phone] Esha Grimm PA-C Primary Care Provider Cheng Todd PA-C Unavailable [phone] Radha Lomeli APRN CRYSTAL SYRUP MAKER Unavailable [phone] Jelena David OD Unavailable Pao Joseph RN Unavailable Unavailable Esha GrimmC Unavailable [phone] Valery Veronica PA-C Unavailable [phone] Rey Tay MD Unavailable Rocky Zepeda DO Unavailable Philip Dumont MD Unavailable [phone] Meredith Carrera-C Unavailable [phone] Neil Kent MD Unavailable Juan Pablo Emmanuel MD Unavailable [phone] Encounter Details Date Type Department Care Team (Late st Contact Info) Description 08/24/2020 [facility] Medical Advice [address] [address] Marija Edgar, ARLENE CRYSTAL SYRUP MAKER Social History Tobacco Use Types Packs/Day Years [...] Answer Date Recorded PHQ-2 Score 0 08/12/2020 [facility] - [...] in a fdc (including now)? No 08/11/2020 Education Answer Date [...] COVID-19? No / Unsure 08/20/2020 12:47 PM FRAME STRIPPER documented as of this encounter Miscellaneous Notes * Telephone Encounter - Marija Edgar APRN CNP - 08/25/2020 11:47 AM FRAME STRIPPER Replied via MyChart Marija Edgar APRN CNP on 08/25/2020 at 11:51 AM E STRIPPER documented in this encounter Plan of Treatment Upcoming Encounters Date Type Department Care Team (Latest Contact Info) Description 02/14/2024 12:50 PM CDT Therapy Visit [facility] Rehabilitation Services [place] [address] [place] [phone] Rustam Medina, [facility] [address] [place] [address] 03/06/2024 3:00 PM CDT Office Visit [facility] Heart Clinic [place] [address] [facility] [address] [place] [phone] Radha Lomeli, CHANGE LEAD CRYSTAL SYRUP MAKER [address] [place] [address]35 03/07/2024 9:00 AM CDT Hospital Encounter [facility] [address] [place] [address] 5th [place] [phone] Rocky Zepeda DO 500 [place], [place] [address] 03/07/2024 9:00 AM CDT - 03/07/2024 9:30 AM CDT Surgery [facility] [address] [place] [phone] Rocky Zepeda DO 500 [place], [place] 764855 Esophagoscopy, gastroscopy, duodenoscopy (EGD), combined 06/21/2024 2:00 PM FRAME STRIPPER Office Visit [facility] Neurology [facility] [place] [address] [facility], [address] [place] [phone] [place] [address] [place] [address] Johnny Penn MD [address] [place] [place] [address] [phone] (work) Scheduled Procedures Name Priority Associated Diagnoses Date/Ti ia ESOPHAGOGASTRODUODENOSCOPY Eosinophilic esophagitis Esophageal dysphagia 03/07/2024 9:00 AM CDT documented as of this encounter Visit Diagnoses Not on filedocumented in this encounter Additional Health Concerns Infection Onset Date Last Indicated Resolved Time Rule Out COVID-19 08/30/2020 08/30/2020 08/30/2020 5:05 PM FRAME STRIPPER Rule Out COVID-19 09/24/2020 09/24/2020 09/24/2020 9:24 AM CDT Rule Out COVID-19 11/05/2020 11/05/2020 11/06/2020 1:09 PM CDT Rule Out COVID-19 05/11/2021 05/11/2021 05/13/2021 10:18 AM CDT Rule Out COVID-19 07/13/2021 07/13/2021 07/14/2021 3:04 PM FRAME STRIPPER Rule Out COVID-19 07/18/2021 07/18/2021 07/20/2021 1:56 PM FRAME STRIPPER COVID-19 07/18/2021 07/18/2021 08/08/2021 11:3 9 PM FRAME STRIPPER Rule Out COVID-19 12/18/2021 12/18/2021 12/19/2021 11:34 AM CDT Rule Out COVID-19 02/24/2022 02/24/2022 02/25/2022 1:08 PM CDT Rule Out COVID-19 04/26/2022 04/26/2022 04/26/2022 6:47 AM CDT Rule Out COVID-19 05/17/2022 05/17/2022 05/17/2022 10:20 PM FRAME STRIPPER Rule Out COVID-19 06/09/2022 06/09/2022 06/09/2022 9:35 AM FRAME STRIPPER COVID-19 06/09/2022 06/09/2022 06/30/2022 11:4 1 PM FRAME STRIPPER Rule Out COVID-19 11/10/2022 11/10/2022 11/11/2022 12:17 PM CDT Rule Out COVID-19 03/07/2023 03/07/202303/07/2023 1:20 PM CDT Rule Out COVID-19 12/26/2023 12/26/2023 12/26/2023 9:50 AM CDT Assessment Noted Time PHQ-9 Depression Total Score: 9 06/25/20 20 7:04 AM FRAME STRIPPER documented as of this encounter Care Teams Metallurgist Helper Relationship Specialty Start Date End Date Marija Edgar APRN CRYSTAL SYRUP MAKER PCP - General Nurse Practitioner 04/30/20 04/14/23 Esha Grimm PA-C [address] [place] [phone] PCP - General Family Medicine 05/04/23 Lita Oseguera Personal Advocate & Liaison (PAL) 02/28/20 03/27/23 Chanelle Mccann APRN CNM [address] [place] [address] 200 [place] [address] Assigned OBGYN Provider 05/02/2005/09 Kyara DeL a Fuente, RN Specialty Division Operations Specialist Neurology 06/04/20 03/05/21 Marija Edgar APRN CRYSTAL SYRUP MAKER Assigned PCP 06/08/20 04/29/23 Mynor Broussard MD 6[address] [facility] 500 [place] [address] Assigned Surgical Provider 06/01/20 11/28/21 Keisha Dotson MD 909 [place], [place] 460375 Assigned Neuroscience Provider 06/04/20 04/01/23 Stacey Briones, MARKETING DESIGNER Lead Division Operations Specialist Primary Care - CC 08/11/2012/30 Lesley [...] Worker 02/09/21 02/09/21 Diana Desir, [facility] [address] [place] [address] [phone] Pharmacist Pharmacist 04/17/21 Rain Galaviz PA-C [address] [place] [address] DR ARTE[place]A [place], [place] [phone] Physician Director Of Product Design Dermatology 04/28/21 Summer Lara MD [address] [place] [address] 508784 Assigned OBGYN Provider 05/10/2105/23 Summer Lara MD [address] [place] [address] 048254 Assigned OBGYN Provider 05/31/21 2 Summer Lara MD [address] [place] [address] Assigned OBGYN Provider 05/24/2105/30 Tavia Wyatt MD [address] [place] [address] Dermatology 07/14/21 Johnny Murillo MD [address] [place] [address] Assigned Musculoskeletal Provider 08/30/21 03/17/22 Erica Farrell APRN CRYSTAL SYRUP MAKER 6[address] [facility] [address] [place] [address] Nurse Practitioner Cardiovascular Disease 09/09/21 Teresita Bean, [facility] [address] [place] [address] Pharmacist Pharmacist 09/24/21 09/29/21 Tavia Wyatt MD Assigned Surgical Provider 11/29/21 05/07/22 Diana Desir, [facility] 3033 [place] [address] Assigned MTM Pharmacist 01/02/22 Rich Barrett MD [address] [facility] 9[address] [place], [place] 77[address] Physician Ophthalmology 01/21/22 Neil Kent MD 500 [place] [address] Dermatology 02/24/22 Roney Story DPM [address] [facility] [address] [place], [place] 045017 Assigned Musculoskeletal Provider 03/20/22 08/13/22 Erica Farrell APRN CRYSTAL SYRUP MAKER 1700 [place] [address] Assigned Heart and Vascular Provider 04/03/22 04/16/22 Diana Desir, [facility] [address] [place], [place] 416826 Assigned MTM Pharmacist 04/07/22 Jelena David OD [address] [place] [address] Assigned Surgical Provider 05/08/22 10/08/22 Galo Burrell MD Assigned Heart and Vascular Provider 04/17/22 06/11/22 Livan Sharif MD [address], [address] [address] Cardiovascular Disease 05/14/22 Livan Sharif MD [address] [facility]00 [place] [address] Assigned Heart and Vascular Provider 06/12/22 07/23/22 Catherine Cm MD [address] [facility]00 [place] [address] Cardiovascular Disease 07/21/22 Valery Veronica, PA-C 909 [place] [address] Physician Director Of Product Design Dermatology 07/21/22 Catherine Cm MD [address] [facility] [place] [address] Assigned Heart and Vascular Provider 07/24/22 11/05/22 Johnny Murillo MD [address] [address] Assigned Musculoskeletal Provider 08/14/22 10/08/22 Brea Quinn APRN CRYSTAL SYRUP MAKER [address] [place] [address] 628585 Nurse Practitioner Dermatology 09/21/22 Brea Quinn APRN CRYSTAL SYRUP MAKER [address] [place] [address] 540672 Assigned Surgical Provider 10/09/22 [place] [address] [address] Assigned Musculoskeletal Provider 10/09/22 Livan Sharif MD [address] [facility] [place] [address] Assigned Heart and Vascular Provider 11/06/22 11/12/22 Catherine Cm MD [address] [facility] [address] [place] [address] Assigned Heart and Vascular Provider 11/13/22 05/27/23 Sydnie Martinez RN Personal Advocate & Liaison (PAL) Family Medicine 03/28/23 07/31/23 Alfonso Renteria MD [address] [facility] [address] 200 [place] [address] Assigned Neuroscience Provider 04/02/23 Cheng Todd PA-C [address] [place] [address] Assigned PCP 04/30/23 07/15/23 Radha Lomeli APRN CRYSTAL SYRUP MAKER [address] [place] 2626700 [place] [address] Assigned Heart and Vascular Provider 05/28/23 Jelena David OD [address] [place] [address] Ophthalmology 06/15/23 Pao Joseph, VJ Personal Advocate & Liaison (PAL) Nurse 08/01/23 11/07/23 Esha Grimm PA-C [address] [place] [address] Assigned PCP 07/16/23 Valery Veronica PA-C [address] [place] [address] 818135 Physician Director Of Product Design Dermatology 09/19/23 Rey Tay MD [address] [place] [address] 792235 Gastroenterology 09/20/23 Rocky Zepeda DO [address] [place] [address] Physician Gastroenterology 09/20/23 Philip Dumont MD 516 [place] [address] Physician Ophthalmology 09/22/23 Meredith Carrera PA-C [address] [place] [address] Assigned Gastroenterology Provider 11/01/23 Neil Kent MD [address] [address] Dermatology 11/02/23 [place] [address] [place] [address] Neurological Surgery 12/26/23 documented as of this encounter
--- OUTSIDE RECORDS SUMMARY | 2024-02-12 05:55 | XMS_ITS | Encounter Summary ---
Author Organization [facility] Address [address] [place] [address] Care Team Providers Care Fleet Sales Associate Name Role Phone Rakesh Cid PA-C Primary Care Provider Lita Oseguera Unavailable Unavailable Rakesh Cid PA-C Unavailable [phone] Lita Oseguera Unavailable Unavailable Marija Edgar APRN CHEMICAL SUPERVISOR Primary Care Provider Chanelle Gutierrez CUFF SETTER OVERLOCK CNM Unavailab le Lesley Moody CHW Unavailable [phone] Kyara De La Fuente RN Unavailable [phone] Marija Edgar APRN CHEMICAL SUPERVISOR Unavailable Unavail able Mynor Broussard MD Unavailable [phone] Keisha Dotson MD Unavailable Mary Mejia Unavailable Unavailable Stacey Briones INCENDIARY POWDER MIXER Unavailable [phone] Lesley Moody CHW Unavailable Mary Mejia Unavailable Unavailable Lita Oseguera Unavailable Unavailable Galo Burrell MD Unavailable Unavailable Cristina Wood Unavailable Lesley Moody CHW Unavailable [phone] Meredith Bedoya Unavailable Unavailable Cristina Wood Unavailable DesirDiana [facility] Unavailable [phone] Rain Galaviz-C Unavailable [phone] Summer Lara MD Unavailable [phone] Summer Lara MD Unavailable +[phone] Summer Lara MD Unavailable +[phone] Tavia Wyatt MD Unavailable Unavailable Johnny Murillo MD Unavailable +[phone] Erica Farrell APRN CHEMICAL SUPERVISOR Unavailable + Teresita Bean [facility] Unavailable Tavia Wyatt MD Unavailable Unavailable Diana Desir [facility] Unavailable +[phone] Rich Barrett MD Unavailable [phone] Neil Kent MD Unavailable Roney Story DPM Unavailable Erica Farrell APRN CHEMICAL SUPERVISOR Unavailable + Diana Desir [facility] Unavailable [phone] Jelena David OD Unavailable Galo Burrell MD Unavailable Unavailable Livna Sharif MD Unavailable + Livan Sharif MD Unavailable + Catherine Cm MD Unavailable + Valery Veronica-C Unavailable [phone] Catherine Cm MD Unavailable + Johnny Murillo MD Unavailable [phone] Brea Quinn APRN CHEMICAL SUPERVISOR Unavailable [phone] [place], Brea P CUFF SETTER OVERLOCK CHEMICAL SUPERVISOR Unavailable Jose Francisco Johnson MD Unavailable Livan Sharif MD Unavailable Catherine Cm MD Unavailable + Sydnie Martinez RN Unavailable Unavailable Alfonso Renteria MD Unavailable [phone] Esha Grimm PA-C Primary Care Provider Cheng Todd PA-C Unavailable Radha Lomeli CUFF SETTER OVERLOCK CHEMICAL SUPERVISOR Unavailable Jelena David OD Unavailable Pao Joseph RN Unavailable Unavailable Esha Grimm PA-C Unavailable [phone] Valery Veronica PA-C Unavailable Rey Tay MD Unavailable Rocky Zepeda DO Unavailable Philip Dumont MD Unavailable Meredith Carrera PA-C Unavailable Neil Kent MD Unavailable Juan Pablo Emmanuel MD Unavailable Encounter Details Date Type Department Care Team (Late st Contact Info) Description 04/25/2020 [facility] Medical Advice [address] [address] Rakseh Cid PA-C [address] [place] [address] Social History Tobacco Use Types [...] Description 02/14/2024 12:50 PM CDT Therapy Visit [facility] Rehabilitation Services [address] [address] Rustam Medina, PT [facility] [address] [place] [address] 03/06/2024 3:00 PM CDT Office Visit [facility] Heart Clinic [place] [address] [facility] [address] [place] [phone] Radha Lomeli, CUFF SETTER OVERLOCK CHEMICAL SUPERVISOR [address] [place] [address] 03/07/2024 9:00 AM CDT Hospital Encounter [address] [phone] Rocky Zepeda DO 500 [place] [address] 03/07/2024 9:00 AM CDT - 03/07/2024 9:30 AM CDT Surgery [address] [phone] Rocky Zepeda DO 500 [place], [place] 9[address] Esophagoscopy, gastroscopy, duodenoscopy (EGD), combined 06/21/2024 2:[address] Office Visit [facility] Neurology [facility] [address] [facility], [address] [place] [address] [place] [address] [place] [address] Johnny Penn MD [address] [address] Scheduled Procedures Name Priority Associated Diagnoses Date/Ti hi ESOPHAGOGASTRODUODENOSCOPY Eosinophilic esophagitis Esophageal dysphagia 03/07/2024 9:00 AM CDT documented as of this encounter Visit Diagnoses Not on filedocumented in this encounter Additional Health Concerns Infection Onset Date Last Indicated Resolved Time Rule Out COVID-19 07/30/2020 07/30/2020 07/30/2020 7:[address] Rule Out COVID-19 08/30/2020 08/30/2020 08/30/2020 5:[address] Rule Out COVID-19 09/24/2020 09/24/2020 09/24/2020 9:24 AM CDT Rule Out COVID-19 11/05/2020 11/05/2020 11/06/2020 1:09 PM CDT Rule Out COVID-19 05/11/2021 05/11/2021 05/13/2021 10:18 AM CDT Rule Out COVID-19 07/13/2021 07/13/2021 07/14/2021 3:[address] Rule Out COVID-19 07/18/2021 07/18/2021 07/20/2021 1:[address] ADVIS[address] COVID-19 07/18/2021 07/18/2021 08/08/2021 11:[address] Rule Out COVID-19 12/18/2021 12/18/2021 12/19/2021 11:34 AM CDT Rule Out COVID-19 02/24/2022 02/24/2022 02/25/2022 1:08 PM CDT Rule Out COVID-19 04/26/2022 04/26/2022 04/26/2022 6:47 AM CDT Rule Out COVID-19 05/17/2022 05/17/2022 05/17/2022 10:[address] Rule Out COVID-19 06/09/2022 06/09/2022 06/09/2022 9:[address] COVID-19 06/09/2022 06/09/2022 06/30/2022 11:[address] Rule Out COVID-19 11/10/2022 11/10/2022 11/11/2022 12:17 PM CDT Rule Out COVID-19 03/07/2023 03/07/2023 03/07/2023 1:20 PM CDT Rule Out COVID-19 12/26/2023 12/26/2023 12/26/2023 9:50 AM CDT Assessment Noted Time PHQ-9 Depression Total Score: 12 020 2:40 PM CDT documented as of this encounter Care Teams Fleet Sales Associate Relationship Specialty Start Date End Date Rakesh Cid PA-C PCP - General Physician Sack Filler - Medical 05/14/19 04/29/20 Marija Edgar APRN CNP [address] [place] [address] PCP - General Nurse Practitioner 04/30/20 04/14/23 Esha Grimm PA-C [address] [facility] [place] [address] PCP - General Family Medicine 05/04/23 Lita Oseguera Personal Advocate & Liaison (PAL) 02/28/20 03/27/23 Rakesh Cid PA-C [address] [place] [address] Assigned PCP 03/02/20 06/07/20 Lita Oseguera Personal Advocate & Liaison (PAL) 04/07/20 04/29/20 Chanelle Mccann APRN CNM [address], [address] [place] [address] Assigned OBGYN Provider 05/02/2005/09 Lesley Moody, CHW Community Health Worker 05/30/2005/12 Kyara De La Fuente, RN Specialty Card Sorter Neurology 06/04/20 03/05/21 Marija Edgar APRN CHEMICAL SUPERVISOR [address] [place] [address] Assigned PCP 06/08/20 04/29/23 Mynor Broussard MD 6363 [facility] 500 [place] [address] Assigned Surgical Provider 06/01/20 11/28/21 Keisha Dotson MD 909 [place], [place] 138675 Assigned Neuroscience Provider 06/04/20 04/01/23 Mary Mejia Financial Resource Worker 08/07/20 08/21/20 Stacey Briones, [facility] Lead Card Sorter Primary Care - CC 08/11/2012/30 Lesley Moody, W Community Health Worker 08/11/2010/01 Mary Mejia Financial Resource Worker 09/02/20 10/06/20 Lita Oseguera Personal Advocate & Liaison (PAL) Family Medicine 09/10/20 09/21/20 Galo Burrell MD Assigned Heart and Vascular Provider 10/05/20 04/02/22 Cristina Wood Financial Resource Worker 10/07/20 10/14/20 Lesley Moody, [facility] Community Health Worker 10/23/2012/30 Meredith Bedoya Financial Resource Worker 10/23/20 11/23/20 Cristina Wood Financial Resource Worker 02/09/21 02/09/21 Diana Desir, [facility] 3033 [place], [place] [address] Pharmacist Pharmacist 04/17/21 Rain Galaviz PA-C [address] [place] [address] [place] [address] Physician Sack Filler Dermatology 04/28/21 Summer Lara MD [address] [place] [address] 589104 Assigned OBGYN Provider 05/10/2105/23 Summer Lara MD [address] [place] [address] 681164 Assigned OBGYN Provider 05/31/21 2 Summer Lara MD [address] [place] [address] 706854 Assigned OBGYN Provider 05/24/2105/30 Tavia Wyatt MD [address] [place] [address] Dermatology 07/14/21 Johnny Murillo MD [address] [place] [address] Assigned Musculoskeletal Provider 08/30/21 03/17/22 Erica Farrell APRN CHEMICAL SUPERVISOR [address] [facility] [address] [place] [address] Nurse Practitioner Cardiovascular Disease 09/09/21 Teresita Bean, [facility] [address] [place] [phone] Pharmacist Pharmacist 09/24/21 09/29/21 Tavia Wyatt MD Assigned Surgical Provider 11/29/21 05/07/22 [facility] 3033 [place] [address] Assigned MTM Pharmacist 01/02/22 Rich Barrett MD 516 [facility] 9A [place] [address] Physician Ophthalmology 01/21/22 Neil Kent MD 500 [place] [address] Dermatology 02/24/22 Roney Story DPM [address] [facility] [address] [place] [address] Assigned Musculoskeletal Provider 03/20/22 08/13/22 Erica Farrell APRN CHEMICAL SUPERVISOR 1700 [place] [address] Assigned Heart and Vascular Provider 04/03/22 04/16/22 Diana Desir, [facility] 3033 [place] [address] Assigned [place] Pharmacist 04/07/22 Jelena David OD 3305 [facility] [place] [address] Assigned Surgical Provider 05/08/22 10/08/22 Galo Burrell MD Assigned Heart and Vascular Provider 04/17/22 06/11/22 Livan Sharif MD [address], [address] [place] [address] Cardiovascular Disease 05/14/22 Livan Sharif MD [address], [address] [place] 426975 Assigned Heart and Vascular Provider 06/12/22 07/23/22 Catherine Cm MD [address] [place] [address]265 Cardiovascular Disease 07/21/22 Valery Veronica, PAUcheC 909 [place], [place] 9[address] Physician Sack Filler Dermatology 07/21/22 Catherine Cm MD [address] [place] 909205 Assigned Heart and Vascular Provider 07/24/22 11/05/22 Johnny Murillo MD [facility] [address] [address] Assigned Musculoskeletal Provider 08/14/22 10/08/22 Brea Quinn APRN CHEMICAL SUPERVISOR [address] [place] [address] Nurse Practitioner Dermatology 09/21/22 Brea Quinn APRN CHEMICAL SUPERVISOR [facility]1 [place] [address] Assigned Surgical Provider 10/09/22 [place] [address] [address] Assigned Musculoskeletal Provider 10/09/22 Livan Sharif MD [address] [facility] [address] [place] [address] Assigned Heart and Vascular Provider 11/06/22 11/12/22 Catherine Cm MD [address] [facility]00 [place] [address] Assigned Heart and Vascular Provider 11/13/22 05/27/23 Sydnie Martinez, VJ Personal Advocate & Liaison (PAL) Family Medicine 03/28/23 07/31/23 Alfonso Renteria MD [address] [facility] 200 [place], [place] 340166 Assigned Neuroscience Provider 04/02/23 Cheng Todd PA-C [address] [place] [address] Assigned PCP 04/30/23 07/15/23 Radha Lomeli APRN CHEMICAL SUPERVISOR [address] [facility] [address] [place] [address] Assigned Heart and Vascular Provider 05/28/23 Jelena David OD 3305 [facility] [place] [address] MD Ophthalmology 06/15/23 Pao Joseph, VJ Personal Advocate & Liaison (PAL) Nurse 08/01/23 11/07/23 Esha Grimm PA-C [address] [place] [address] Assigned PCP 07/16/23 Valery Veronica PA-C [address] [place] [address] Physician Sack Filler Dermatology 09/19/23 Rey Tay MD [address] [place] [address] 871885 Gastroenterology 09/20/23 Rocky Zepeda DO [address] [place] [address] 408445 Physician Gastroenterology 09/20/23 Philip Dumont MD [address] [place] [address] 840275 Physician Ophthalmology 09/22/23 Meredith Carrera PA-C 909 [place] [address] Assigned Gastroenterology Provider 11/01/23 Neil Kent MD [address] 965530 Dermatology 11/02/23 [place] [address] [place] [address] [id number] Neurological Surgery 12/26/23 documented as of this encounter
--- OUTSIDE RECORDS SUMMARY | 2024-02-12 05:55 | XMS_ITS | Encounter Summary ---
Author Organization [facility] Address [address] [place] [address] Care Team Providers Care Singing Teacher Name Role Phone Lita Oseguera Unavailable Unavailable Rakesh Cid PA-C Unavailable + [phone] Marija Edgar WIRE BRUSH MAKER LOADING MACHINE OPERATOR HELPER Primary Care Provider Chanelle Gutierrez WIRE BRUSH MAKER CNM Unavailab le Lesley Moody CHW Unavailable Kyara De La Fuente RN Unavailable [phone] Marija Edgar APRN LOADING MACHINE OPERATOR HELPER Unavailable Unavail able Mynor Broussard MD Unavailable [phone] Keisha Dotson MD Unavailable [phone] Mary Mejia Unavailable Unavailable Stacey Briones TILE AND MARBLE INSTALLER Unavailable [phone] Lesley Moody CHW Unavailable Mary Mejia Unavailable Unavailable Lita Oseguera Unavailable Unavailable Galo Burrell MD Unavailable Unavailable Cristina Wood Unavailable Lesley Moody CHW Unavailable [phone] Meredith Bedoya Unavailable Unavailable Cristina Wood Unavailable Diana Desir RPH Unavailable [phone] AnastaciaKailaRainsuki Paredes PA-C Unavailable [phone] Summer Lara MD Unavailable [phone] Summer Lara MD Unavailable [phone] Summre Lara MD Unavailable +[phone] Tavia Wyatt MD Unavailable Unavailable Johnny Murillo MD Unavailable +1- Erica Farrell WIRE BRUSH MAKER LOADING MACHINE OPERATOR HELPER Unavailable + VikasTeresita [facility] Unavailable Tavia Wyatt MD Unavailable Unavailable Diana Desir [facility] Unavailable [phone] Rich Barrett MD Unavailable [phone] Neil Kent MD Unavailable Roney Story DPM Unavailable [phone] Erica Farrell WIRE BRUSH MAKER LOADING MACHINE OPERATOR HELPER Unavailable Diana Desir [facility] Unavailable [phone] Jelena David OD Unavailable Galo Burrell MD Unavailable Unavailable Livan Sharif MD Unavailable + Livan Sharif MD Unavailable + Catherine Cm MD Unavailable + Valery Veronica PA-C Unavailable [phone] Catherine Cm MD Unavailable + Johnny Murillo MD Unavailable +1- Brea Quinn WIRE BRUSH MAKER LOADING MACHINE OPERATOR HELPER Unavailable [phone] Brea Quinn WIRE BRUSH MAKER LOADING MACHINE OPERATOR HELPER Unavailable [phone] Jose Francisco Johnson MD Unavailable Livan Sharif MD Unavailable Catherine Cm MD Unavailable + Sydnie Martinez RN Unavailable Unavailable Alfonso Renteria MD Unavailable [phone] Esha Grimm PA-C Primary Care Provider [phone] Cheng Todd PA-C Unavailable ArmaniRadha APRN LOADING MACHINE OPERATOR HELPER Unavailable [phone] Jelena David OD Unavailable Pao Joseph RN Unavailable Unavailable Esha Grimm PA-C Unavailable [phone] Valery Veronica PA-C Unavailable Rey Tay MD Unavailable Rocky Zepeda DO Unavailable Philip Dumont MD Unavailable [phone] Meredith Carrera PA-C Unavailable [phone] Neil Kent MD Unavailable Juan Pablo Emmanuel MD Unavailable Reason for Visit * Reason Onset Date Comments Referral 05/19/2020 Encounter Details Date Type Department Care Team (Late st Contact Info) Description 05/19/2020 Telephone [facility] Epilepsy [facility] [address], [address] [place] [address] Unknown Referral Social History Tobacco [...] COVID-19? No / Unsure 05/12/2020 9:03 AM COMMUNITY ARTS WORKER documented as of this encounter Miscellaneous Notes * Telephone Encounter - Jolene Mcpherson - 05/19/2020 2:02 PM CST M [facility] Call Center Phone Message May a detailed message be left on voicemail: yes Reason for Call: Appointment Intake Referring Provider Name: Marija Edgar APRN CNP in FAMILY PRACTICE Diagnosis and/or Symptoms: History of Seizures Being referred to [facility]. Please review. Thanks. Action Taken: Other[place] [facility] [place] Screening: Not Applicable UNITY ARTS WORKER documented in this encounter Plan of Treatment Upcoming Encounters Date Type Department Care Team (Latest Contact Info) Description 02/14/2024 12:50 PM CDT Therapy Visit [facility] [address] [phone] Rustam Medina, PT [facility] [address] [place] [address] 03/06/2024 3:00 PM CDT Office Visit [facility] [id number] [place] [address] [address] [place] [phone] Radha Lomeli APRN LOADING MACHINE OPERATOR HELPER [id number] [place] [address] 03/07/2024 9:00 AM CDT Hospital Encounter [facility] [address] [facility] [address] [place] [address] Rocky Zepeda DO [address] [place], [place] [address] 03/07/2024 9:00 AM CDT - 03/07/2024 9:30 AM CDT Surgery [facility] [address] [facility] [address] [place] [phone] Rocky Zepeda, [address] [place], [place] [address] Esophagoscopy, gastroscopy, duodenoscopy (EGD), combined 06/21/2024 2:00 PM COMMUNITY ARTS WORKER Office Visit [facility] [place] [address] [facility], [address] [place] [address] [place] [address] [place] [address] Johnny Penn MD [address] [place] [address] Scheduled Procedures Name Priority Associated Diagnoses Date/Ti mo ESOPHAGOGASTRODUODENOSCOPY Eosinophilic esophagitis Esophageal dysphagia 03/07/2024 9:00 AM CDT documented as of this encounter Visit Diagnoses Not on filedocumented in this encounter Additional Health Concerns Infection Onset Date Last Indicated Resolved Time Rule Out COVID-19 07/30/2020 07/30/2020 07/30/2020 7:11 PM COMMUNITY ARTS WORKER Rule Out COVID-19 08/30/2020 08/30/2020 08/30/2020 5:05 PM COMMUNITY ARTS WORKER Rule Out COVID-19 09/24/2020 09/24/2020 09/24/2020 9:24 AM CDT Rule Out COVID-19 11/05/2020 11/05/2020 11/06/2020 1:09 PM CDT Rule Out COVID-19 05/11/2021 05/11/2021 05/13/2021 10:18 AM CDT Rule Out COVID-19 07/13/2021 07/13/2021 07/14/2021 3:04 PM COMMUNITY ARTS WORKER Rule Out COVID-19 07/18/2021 07/18/2021 07/20/2021 1:56 PM COMMUNITY ARTS WORKER COVID-19 07/18/2021 07/18/2021 08/08/2021 11:3 9 PM COMMUNITY ARTS WORKER Rule Out COVID-19 12/18/2021 12/18/2021 12/19/2021 11:34 AM CDT Rule Out COVID-19 02/24/2022 02/24/2022 02/25/2022 1:08 PM CDT Rule Out COVID-19 04/26/2022 04/26/2022 04/26/2022 6:47 AM CDT Rule Out COVID-19 05/17/2022 05/17/2022 05/17/2022 10:20 PM COMMUNITY ARTS WORKER Rule Out COVID-19 06/09/2022 06/09/2022 06/09/2022 9:35 AM COMMUNITY ARTS WORKER COVID-19 06/09/2022 06/09/2022 06/30/2022 11:4 1 PM COMMUNITY ARTS WORKER Rule Out COVID-19 11/10/2022 11/10/2022 11/11/2022 12:17 PM CDT Rule Out COVID-19 03/07/2023 03/07/2023 03/07/2023 1:20 PM CDT Rule Out COVID-19 12/26/2023 12/26/2023 12/26/2023 9:50 AM CDT Assessment Noted Time PHQ-9 Depression Total Score: 6 08/28/19 7:05 AM COMMUNITY ARTS WORKER documented as of this encounter Care Teams Singing Teacher Relationship Specialty Start Date End Date Marija Edgar APRN CNP [address] [address] PCP - General Nurse Practitioner 04/30/20 04/14/23 Esha Grimm PA-C [address] [place] [address] PCP - General Family Medicine 05/04/23 Lita Oseguera Personal Advocate & Liaison (PAL) 02/28/20 03/27/23 Rakesh Cid PA-C [address] [address] Assigned PCP 03/02/20 06/07/20 Chanelle Mccann APRN CNM [address] [facility] [address] [place] [address] Assigned OBGYN Provider 05/02/2005/09 Lesley Moody, W Community Health Worker 05/30/2005/12 Kyara De La Fuente, RN Specialty Shift Leader Neurology 06/04/20 03/05/21 Marija Edgar APRN LOADING MACHINE OPERATOR HELPER [address] [place] [address] Assigned PCP 06/08/20 04/29/23 Mynor Broussard MD [address] [facility] 500 [place] [address] Assigned Surgical Provider 06/01/20 11/28/21 Keisha Dotson MD [address] [place] [address] Assigned Neuroscience Provider 06/04/20 04/01/23 Mary Mejia Financial Resource Worker 08/07/20 08/21/20 Stacey Briones, [facility] Lead Shift Leader Primary Care - CC 08/11/2012/30 Lesley Moody W Community Health Worker 08/11/2010/01 Mary Mejia [...] 02/09/21 02/09/21 Diana Desir, [facility] [address] [place], [place] [phone] Pharmacist Pharmacist 04/17/21 Rain Galaviz PA-C [address] [place] [address] [address] [place], [place] [phone] Physician Fermentation Manager Dermatology 04/28/21 Summer Lara MD [address] [place] [address] [phone] Assigned OBGYN Provider 05/10/2105/23 Summer Lara MD [address] [place] [address] [phone] Assigned OBGYN Provider 05/31/21 2 Summer Lara MD [address] [place] [address] [phone] Assigned OBGYN Provider 05/24/2105/30 Tavia Wyatt MD [address] [place] [address] Dermatology 07/14/21 Johnny Murillo MD [address] [place] [address] Assigned Musculoskeletal Provider 08/30/21 03/17/22 Erica Farrell APRN LOADING MACHINE OPERATOR HELPER [address] [facility] [address] [place] [address] Nurse Practitioner Cardiovascular Disease 09/09/21 Teresita Bean, [facility] [address] [place] [phone] Pharmacist Pharmacist 09/24/21 09/29/21 Tavia Wyatt MD Assigned Surgical Provider 11/29/21 05/07/22 [facility] [address] [place] [address] Assigned MTM Pharmacist 01/02/22 Rich Barrett MD [address] [facility] [address] [place], [place] [address] Physician Ophthalmology 01/21/22 Neil Kent MD 500 [place] [address] Dermatology 02/24/22 Roney Story DPM [address] [facility] [address] [place], [place] 9[address]77 Assigned Musculoskeletal Provider 03/20/22 08/13/22 Erica Farrell APRN LOADING MACHINE OPERATOR HELPER [address] [place] [address] Assigned Heart and Vascular Provider 04/03/22 04/16/22 Diana Desir, [facility] [address] [facility] [place] [address] Assigned MTM Pharmacist 04/07/22 Jelena David OD [address] [facility] [place] [address] Assigned Surgical Provider 05/08/22 10/08/22 Galo Burrell MD Assigned Heart and Vascular Provider 04/17/22 06/11/22 Livan Sharif MD [address] [place] [phone] Cardiovascular Disease 05/14/22 Livan Sharif MD [address] [place] [phone] Assigned Heart and Vascular Provider 06/12/22 07/23/22 Catherine Cm MD [address] [place] [address] Cardiovascular Disease 07/21/22 Valery Veronica PA-C [address] [place] [address] Physician Fermentation Manager Dermatology 07/21/22 Catherine Cm MD [address] [place] [address] Assigned Heart and Vascular Provider 07/24/22 11/05/22 Johnny Murillo MD [address] [facility] [address] [place], [place] 7330[address] Assigned Musculoskeletal Provider 08/14/22 10/08/22 Brea Quinn APRN LOADING MACHINE OPERATOR HELPER [address] [place], [place] 196135 Nurse Practitioner Dermatology 09/21/22 Brea Quinn APRN LOADING MACHINE OPERATOR HELPER [facility]1 [place], [place] 851392 Assigned Surgical Provider 10/09/22 [place] [address] 085827 Assigned Musculoskeletal Provider 10/09/22 Livan Sharif MD [address], [facility] [address] [place], [place] 2539[address] Assigned Heart and Vascular Provider 11/06/22 11/12/22 Catherine Cm MD [address] [facility] [address] [place], [place] [address] Assigned Heart and Vascular Provider 11/13/22 05/27/23 Sydnie Martinez, VJ Personal Advocate & Liaison (PAL) Family Medicine 03/28/23 07/31/23 Alfonso Renteria MD [address] [facility] [address] [place], [place] [address] Assigned Neuroscience Provider 04/02/23 Cheng Todd PA-C [address] [place] [address] [phone] Assigned PCP 04/30/23 07/15/23 Lomeli Radha ARLENE Stovall LOADING MACHINE OPERATOR HELPER [address] [facility] [address] [place], [place] [address] Assigned Heart and Vascular Provider 05/28/23 Jelena David OD [address] [facility] [place] [address] MD Ophthalmology 06/15/23 Pao Joseph, VJ Personal Advocate & Liaison (PAL) Nurse 08/01/23 11/07/23 Esha Grimm PA-C [address] [place] [phone] Assigned PCP 07/16/23 Valery Veronica PA-C [address] [place] [address] [phone] Physician Fermentation Manager Dermatology 09/19/23 Rey Tay MD [address] [place] [address] [phone] Gastroenterology 09/20/23 Rocky Zepeda DO [address] [place] [address] [phone] Physician Gastroenterology 09/20/23 Philip Dumont MD [address] [place] [address] [phone] Physician Ophthalmology 09/22/23 Meredith Carrera PA-C [address] [place] [address] Assigned Gastroenterology Provider 11/01/23 Neil Kent MD [address] [place] [address] Dermatology 11/02/23 [place] [address] [place] [address] Neurological Surgery 12/26/23 documented as of this encounter
--- OUTSIDE RECORDS SUMMARY | 2024-02-12 05:55 | XMS_ITS | Encounter Summary ---
Author Organization [facility] Address [address] [place] [address] Care Team Providers Care Brick Pointer Name Role Phone Rakesh Cid PA-C Unavailable + Rakesh Cid PA-C Primary Care Provider Lita Oseguera Unavailable Unavailable Rakesh Cid PA-C Unavailable + Isaura Lamar RN Unavailable Unavailable Lita Oseguera Unavailable Unavailable Marija Edgar APRN LAWN SERVICE MANAGER Primary Care Provider Chanelle Gutierrez APRN CNM Unavailab le Lesley Moody CHW Unavailable [phone] Kyara De La Fuente RN Unavailable Marija Edgar APRN LAWN SERVICE MANAGER Unavailable Unavail able Mynor Broussard MD Unavailable [phone] Keisha Dotson MD Unavailable [phone] Mary Mejia Unavailable Unavailable Stacey Briones SHIP ERECTOR Unavailable [phone] Lesley Moody CHW Unavailable [phone] Mary Mejia Unavailable Unavailable Lita Oseguera Unavailable Unavailable Galo Burrell MD Unavailable Unavailable Cristina Wood Unavailable Lesley Moody [facility] Unavailable Meredith Bedoya Unavailable Unavailable Cristina Wood Unavailable Diana Desir [facility] Unavailable [phone] Rain Galaviz PA-C Unavailable Summer Lara MD Unavailable +[phone] Summer Lara MD Unavailable + [phone] Summer Lara MD Unavailable +[phone] Tavia Wyatt MD Unavailable Unavailable Johnny Murillo MD Unavailable +[phone] Erica Farrell APRN LAWN SERVICE MANAGER Unavailable + Teresita Bean [facility] Unavailable [phone] Tavia Wyatt MD Unavailable Unavailable Diana Desir [facility] Unavailable [phone] Rich Barrett MD Unavailable [phone] Neil Kent MD Unavailable Roney Story DPM Unavailable [phone] Erica Farrell BATHHOUSE ATTENDANT LAWN SERVICE MANAGER Unavailable + Diana Desir [facility] Unavailable [phone] Jelena David OD Unavailable Galo Burrell MD Unavailable Unavailable Livan Sharif MD Unavailable + Livan Sharif MD Unavailable + Catehrine Cm MD Unavailable + Valery Veronica PA-C Unavailable [phone] Catherine Cm MD Unavailable + Johnny Murillo MD Unavailable [phone] Brea Quinn APRN LAWN SERVICE MANAGER Unavailable Brea Quinn BATHHOUSE ATTENDANT LAWN SERVICE MANAGER Unavailable [phone] Jose Francisco Johnson MD Unavailable Livan Sharif MD Unavailable Catherine Cm MD Unavailable + Sydnie Martinez RN Unavailable Unavailable Alfonso Renteria MD Unavailable [phone] Esah Grimm PA-C Primary Care Provider Cheng Todd PA-C Unavailable Armani Radha Sia BATHHOUSE ATTENDANT LAWN SERVICE MANAGER Unavailable FrankieJelena OD Unavailable Pao Joseph RN Unavailable Unavailable Esha Grimm PA-C Unavailable [phone] Valery Veronica PA-C Unavailable Rey Tay MD Unavailable Rocky Zepeda DO Unavailable Philip Dumont MD Unavailable [phone] Meredith Carrera PA-C Unavailable [phone] Neil Kent MD Unavailable Juan Pablo Emmanuel MD Unavailable Encounter Details Date Type Department Care Team (Late st Contact Info) Description 02/27/[address], [address] [place] [address] Rakesh Cid, PA-C [address] [place] [address] Social History Tobacco Use Types [...] message?: Yes at Home number on file [phone] (home) Violet Jeffrey Patient Manager Fixed Income documented in this encounter Plan of Treatment Upcoming Encounters Date Type Department Care Team (Latest Contact Info) Description 02/14/2024 12:50 PM CDT Therapy Visit [facility] [place] [address] [place] [phone] Rustam Medina, PT [facility] [address] [place] [address] 03/06/2024 3:00 PM CDT Office Visit [facility] [place] [address] [facility] [address] [place] [phone] Radha Lomeli, BATHHOUSE ATTENDANT LAWN SERVICE MANAGER [address] [place] [address] 03/07/2024 9:00 AM CDT Hospital Encounter [facility] [place] [address] [facility] [address] [place] [phone] Rocky Zepeda DO [address] [place], [place] [address] 03/07/2024 9:00 AM CDT - 03/07/2024 9:30 AM CDT Surgery [facility] [address] [facility] [address] [place] [phone] Rocyk Zepeda DO [address] [place], [place] [phone] Esophagoscopy, gastroscopy, duodenoscopy (EGD), combined 06/21/2024 2:00 PM E COMMERCE MANAGER Office Visit [facility] Neurology Clinics - [address], [address] [place] [phone] [place] [address] [place], [place] [id number] Johnny Penn MD [address] [facility] [place] [id number] Scheduled Procedures Name Priority Associated Diagnoses Date/Ti ks ESOPHAGOGASTRODUODENOSCOPY Eosinophilic esophagitis Esophageal dysphagia 03/07/2024 9:00 AM CDT documented as of this encounter Visit Diagnoses Not on filedocumented in this encounter Additional Health Concerns Infection Onset Date Last Indicated Resolved Time Rule Out COVID-19 07/30/2020 07/30/2020 07/30/2020 7:11 PM E COMMERCE MANAGER Rule Out COVID-19 08/30/2020 08/30/2020 08/30/2020 5:05 PM E COMMERCE MANAGER Rule Out COVID-19 09/24/2020 09/24/2020 09/24/2020 9:24 AM CDT Rule Out COVID-19 11/05/2020 11/05/2020 11/06/2020 1:09 PM CDT Rule Out COVID-19 05/11/2021 05/11/2021 05/13/2021 10:18 AM CDT Rule Out COVID-19 07/13/2021 07/13/2021 07/14/2021 3:04 PM E COMMERCE MANAGER Rule Out COVID-19 07/18/2021 07/18/2021 07/20/2021 1:56 PM E COMMERCE MANAGER COVID-19 07/18/2021 07/18/2021 08/08/2021 11:3 9 PM E COMMERCE MANAGER Rule Out COVID-19 12/18/2021 12/18/2021 12/19/2021 11:34 AM CDT Rule Out COVID-19 02/24/2022 02/24/2022 02/25/2022 1:08 PM CDT Rule Out COVID-19 04/26/2022 04/26/2022 04/26/2022 6:47 AM CDT Rule Out COVID-19 05/17/2022 05/17/2022 05/17/2022 10:20 PM E COMMERCE MANAGER Rule Out COVID-19 06/09/2022 06/09/2022 06/09/2022 9:35 AM E COMMERCE MANAGER COVID-19 06/09/2022 06/09/2022 06/30/2022 11:4 1 PM E COMMERCE MANAGER Rule Out COVID-19 11/10/2022 11/10/2022 11/11/2022 12:17 PM CDT Rule Out COVID-19 03/07/2023 03/07/2023 03/07/2023 1:20 PM CDT Rule Out COVID-19 12/26/2023 12/26/2023 12/26/2023 9:50 AM CDT Assessment Noted Time PHQ-9 Depression Total Score: 11 020 1:14 PM CDT documented as of this encounter Care Teams Brick Pointer Relationship Specialty Start Date End Date Rakesh Cid PA-C [address] [place] [address] PCP - General Physician Flight Test Data Acquisition Technician - Medical 05/14/19 04/29/20 Marija Edgar APRN LAWN SERVICE MANAGER PCP - General Nurse Practitioner 04/30/20 04/14/23 Esha Grimm PA-C [address] [place] [phone] PCP - General Family Medicine 05/04/23 Rakesh Cid PA-C [address] [place] [address] Assigned PCP 05/06/19 03/01/20 Lita Oseguera Personal Advocate & Liaison (PAL) 02/28/20 03/27/23 Rakesh Cid PA-C [address] [place] [address] Assigned PCP 03/02/20 06/07/20 Isaura Lamar, VJ Personal Advocate & Liaison (PAL) Family Practice 04/03/20 04/06/20 Lita Oseguera Personal Advocate & Liaison (PAL) 04/07/20 04/29/20 Chanelle Mccann APRN CNM [address] [place] [address] Assigned OBGYN Provider 05/02/2005/09 Lesley Moody, [facility] Community Health Worker 05/30/2005/12 Kyara De La Fuente, VJ Specialty Quality Assurance Tech Neurology 06/04/20 03/05/21 Marija Edgar APRN LAWN SERVICE MANAGER Assigned PCP 06/08/20 04/29/23 Mynor Broussard MD [address] [place], [place] [address] Assigned Surgical Provider 06/01/20 11/28/21 Keisha Dotson MD [address] [place], [place] [address] Assigned Neuroscience Provider 06/04/20 04/01/23 Mary Mejia Financial Resource Worker 08/07/20 08/21/20 Stacey Briones, [facility] Lead Quality Assurance Tech Primary Care - CC 08/11/2012/30 Lesley Moody, [facility] Community Health Worker 08/11/2010/01 Mary Mejia Financial Resource Worker 09/02/20 10/06/20 Lita Oseguera Personal Advocate & Liaison (PAL) Family Medicine 09/10/20 09/21/20 Galo Burrell MD Assigned Heart and Vascular Provider 10/05/20 04/02/22 Cristina Wood Financial Resource Worker 10/07/20 10/14/20 Lesley Moody, [facility] Community Health Worker 10/23/2012/30 Meredith Bedoya Financial Resource Worker 10/23/20 11/23/20 Cristina Wood Financial Resource Worker 02/09/21 02/09/21 Diana Desir, [facility] [address] [place] [address] Pharmacist Pharmacist 04/17/21 Rain Galaviz PA-C [address] [place] [address] [facility] [place] [address] Physician Flight Test Data Acquisition Technician Dermatology 04/28/21 Summer Lara MD [address] [place] [address] Assigned OBGYN Provider 05/10/2105/23 Summer Lara MD [address] [place] [address] Assigned OBGYN Provider 05/31/21 Summer Lara MD [address] [place] [address] Assigned OBGYN Provider 05/24/2105/30 Tavia Wyatt MD [address] [place] [address] Dermatology 07/14/21 Johnny Murillo MD [facility] [facility] [address] [place] [address] Assigned Musculoskeletal Provider 08/30/21 03/17/22 Erica Farrell APRN LAWN SERVICE MANAGER [address] [facility] [address] [place] [address] Nurse Practitioner Cardiovascular Disease 09/09/21 Teresita Bean, [facility] [address] [place] [address] Pharmacist Pharmacist 09/24/21 09/29/21 Tavia Wyatt MD Assigned Surgical Provider 11/29/21 05/07/22 Diana Desir, [facility] [address] [place] [address] Assigned MTM Pharmacist 01/02/22 Rich Barrett MD [address] [id number] Physician Ophthalmology 01/21/22 Neil Kent MD [address] [place], [place] [phone] Dermatology 02/24/22 [place] [address] [facility] [place] [address] [place], [place] [address] Assigned Musculoskeletal Provider 03/20/22 08/13/22 Erica Farrell APRN LAWN SERVICE MANAGER [address] [place] [address] Assigned Heart and Vascular Provider 04/03/22 04/16/22 Diana Desir, [facility] [address] [place] [address] Assigned MTM Pharmacist 04/07/22 [place] David [place] [address] [place] [address] Assigned Surgical Provider 05/08/22 10/08/22 Galo Burrell MD Assigned Heart and Vascular Provider 04/17/22 06/11/22 Livan Sharif MD [address] [facility] [address] [place] [address] Cardiovascular Disease 05/14/22 Livan Sharif MD [address] [place] [address] Assigned Heart and Vascular Provider 06/12/22 07/23/22 Catherine Cm MD [address] [place] [address] Cardiovascular Disease 07/21/22 Valery Veronica, [facility] [address] [place] [address] Physician Flight Test Data Acquisition Technician Dermatology 07/21/22 Catherine Cm MD [address] [place] [address] Assigned Heart and Vascular Provider 07/24/22 11/05/22 Johnny Murillo MD [address] [place] [address] Assigned Musculoskeletal Provider 08/14/22 10/08/22 Brea Quinn APRN LAWN SERVICE MANAGER [address] [place] [address] Nurse Practitioner Dermatology 09/21/22 Brea Quinn APRN LAWN SERVICE MANAGER [address] [place] [address] [place] [id number] Assigned Surgical Provider 10/09/22 [place] [address] [place] [address] Assigned Musculoskeletal Provider 10/09/22 Livan Sharif MD [address] [place] [address] Assigned Heart and Vascular Provider 11/06/22 11/12/22 Catherine Cm MD [address] [facility] [address] [place] [address] Assigned Heart and Vascular Provider 11/13/22 05/27/23 Sydnie Martinez RN Personal Advocate & Liaison (PAL) Family Medicine 03/28/23 07/31/23 Alfonso Renteria MD [address] [facility] [address] [place] [address] Assigned Neuroscience Provider 04/02/23 Cheng Todd PA-C [address] [place] [address] Assigned PCP 04/30/23 07/15/23 Radha Lomeli APRN LAWN SERVICE MANAGER [address] [place] [address] Assigned Heart and Vascular Provider 05/28/23 Jelena David OD [facility] [place] [address] Ophthalmology 06/15/23 Pao Joseph RN Personal Advocate & Liaison (PAL) Nurse 08/01/23 11/07/23 Esha Grimm PA-C [address] [place] [address] Assigned PCP 07/16/23 Valery Veronica PA-C [address] [place] [address] Physician Flight Test Data Acquisition Technician Dermatology 09/19/23 Rey Tay MD [address] [place] [address] MD Gastroenterology 09/20/23 Rocky Zepeda DO [address] [place] [address] Physician Gastroenterology 09/20/23 Philip Dumont MD [address] [place] [address] Physician Ophthalmology 09/22/23 Meredith Carrera PA-C [address] [place] [address] Assigned Gastroenterology Provider 11/01/23 Neil Kent MD [address] [address] Dermatology 11/02/23 [place] [address] [place] [id number] Neurological Surgery 12/26/23 documented as of this encounter
--- OUTSIDE RECORDS SUMMARY | 2024-02-12 05:55 | XMS_ITS | Encounter Summary ---
Author Organization [facility] Address [address] [place] [address] Care Team Providers Care Assistant Finance Manager Name Role Phone Lita Oseguera Unavailable Unavailable Rakesh Cid PA-C Unavailable + [phone] Marija Edgar LBD TEACHER SEO STRATEGIST Primary Care Provider Chanelle Gutierrez LBD TEACHER CNM Unavailab le Lesley Moody CHW Unavailable Kyara De La Fuente RN Unavailable [phone] Marija Edgar APRN SEO STRATEGIST Unavailable Unavail able Mynor Broussard MD Unavailable [phone] Keisha Dotson MD Unavailable [phone] Mary Mejia Unavailable Unavailable Stacey Briones WRAPPER COUNTER Unavailable [phone] Lesley Moody CHW Unavailable Mary Mejia Unavailable Unavailable Lita Oseguera Unavailable Unavailable Galo Burrell MD Unavailable Unavailable Cristina Wood Unavailable Lesley Moody CHW Unavailable Meredith Bedoya Unavailable Unavailable Cristina Wood Unavailable Diana Desir RPH Unavailable [phone] AnastaciaKailaRainsuki Paredes PA-C Unavailable [phone] Summer Lara MD Unavailable [phone] Summer Lara MD Unavailable [phone] Summer Lara MD Unavailable [phone] Tavia Wyatt MD Unavailable Unavailable Johnny Murillo MD Unavailable +1- Erica Farrell LBD TEACHER SEO STRATEGIST Unavailable + VikasTeresita [facility] Unavailable Tavia Wyatt MD Unavailable Unavailable Diana Desir [facility] Unavailable [phone] Rich Barrett MD Unavailable [phone] Neil Kent MD Unavailable Roney Story DPM Unavailable [phone] Erica Farrell LBD TEACHER SEO STRATEGIST Unavailable Diana Desir [facility] Unavailable [phone] Jelena David OD Unavailable Galo Burrell MD Unavailable Unavailable Livan Sharif MD Unavailable + Livan Sharif MD Unavailable + Catherine Cm MD Unavailable + Valery Veronica PA-C Unavailable [phone] Catherine Cm MD Unavailable + Johnny Murillo MD Unavailable +1- Brea Quinn LBD TEACHER SEO STRATEGIST Unavailable [phone] Brea Quinn LBD TEACHER SEO STRATEGIST Unavailable [phone] Jose Francisco Johnson MD Unavailable Livan Sharif MD Unavailable Catherine Cm MD Unavailable + Sydnie Martinez RN Unavailable Unavailable Alfonso Renteria MD Unavailable [phone] Esha Grimm PA-C Primary Care Provider Cheng Todd PA-C Unavailable Radha Lomeli APRN SEO STRATEGIST Unavailable [phone] FrankieJelena OD Unavailable Pao Joseph RN Unavailable Unavailable Esha Grimm PA-C Unavailable [phone] Valery Veronica PA-C Unavailable [phone] Rey Tay MD Unavailable Rocky Zepeda DO Unavailable Philip Dumont MD Unavailable [phone] Meredith Carrera PA-C Unavailable +[phone] Neil Kent MD Unavailable Juan Pablo Emmanuel MD Unavailable [phone] Encounter Details Date Type Department Care Team (Late st Contact Info) Description 05/23/2020 MyC Medical Advice [address] [address] Marija Edgar, ARLENE SEO STRATEGIST Social History Tobacco Use Types Packs/Day Years [...] COVID-19? No / Unsure 05/12/2020 9:03 AM LEAD TECHNOLOGIST IN CYTOGENETICS documented as of this encounter Plan of Treatment Upcoming Encounters Date Type Department Care Team (Latest Contact Info) Description 02/14/2024 12:50 PM CDT Therapy Visit [facility] [address] [place] [address] Rustam Medina, PT [facility] [address] [place] [address] 03/06/2024 3:00 PM CDT Office Visit [facility] [address] [facility] [address] [place] [phone] Radha Lomeli APRN SEO STRATEGIST [address] [facility] [address] [place] [address] 03/07/2024 9:00 AM CDT Hospital Encounter [address]th [place] [phone] Rocky Zepeda DO [address] [place], [place] [address] 03/07/2024 9:00 AM CDT - 03/07/2024 9:30 AM CDT Surgery [facility] [address] [place] [address] 5th [place] [phone] Rocky Zepeda DO [address] [place], [place] [phone] Esophagoscopy, gastroscopy, duodenoscopy (EGD), combined 06/21/2024 2:00 PM LEAD TECHNOLOGIST IN CYTOGENETICS Office Visit [facility] [place] [address] [place] [address], [address] [place] [phone] [place] [address] [place] [address] Johnny Penn MD [address] [place] [address] Scheduled Procedures Name Priority Associated Diagnoses Date/Ti az ESOPHAGOGASTRODUODENOSCOPY Eosinophilic esophagitis Esophageal dysphagia 03/07/2024 9:00 AM CDT documented as of this encounter Visit Diagnoses Not on filedocumented in this encounter Additional Health Concerns Infection Onset Date Last Indicated Resolved Time Rule Out COVID-19 07/30/2020 07/30/2020 07/30/2020 7:11 PM LEAD TECHNOLOGIST IN CYTOGENETICS Rule Out COVID-19 08/30/2020 08/30/2020 08/30/2020 5:05 PM LEAD TECHNOLOGIST IN CYTOGENETICS Rule Out COVID-19 09/24/2020 09/24/2020 09/24/2020 9:24 AM CDT Rule Out COVID-19 11/05/2020 11/05/2020 11/06/2020 1:09 PM CDT Rule Out COVID-19 05/11/2021 05/11/2021 05/13/2021 10:18 AM CDT Rule Out COVID-19 07/13/2021 07/13/2021 07/14/2021 3:04 PM LEAD TECHNOLOGIST IN CYTOGENETICS Rule Out COVID-19 07/18/2021 07/18/2021 07/20/2021 1:56 PM LEAD TECHNOLOGIST IN CYTOGENETICS COVID-19 07/18/2021 07/18/2021 08/08/2021 11:3 9 PM LEAD TECHNOLOGIST IN CYTOGENETICS Rule Out COVID-19 12/18/2021 12/18/2021 12/19/2021 11:34 AM CDT Rule Out COVID-19 02/24/2022 02/24/2022 02/25/2022 1:08 PM CDT Rule Out COVID-19 04/26/2022 04/26/2022 04/26/2022 6:47 AM CDT Rule Out COVID-19 05/17/2022 05/17/2022 05/17/2022 10:20 PM LEAD TECHNOLOGIST IN CYTOGENETICS Rule Out COVID-19 06/09/2022 06/09/2022 06/09/2022 9:35 AM LEAD TECHNOLOGIST IN CYTOGENETICS COVID-19 06/09/2022 06/09/2022 06/30/2022 11:4 1 PM LEAD TECHNOLOGIST IN CYTOGENETICS Rule Out COVID-19 11/10/2022 11/10/2022 11/11/2022 12:17 PM CDT Rule Out COVID-19 03/07/2023 03/07/2023 03/07/2023 1:20 PM CDT Rule Out COVID-19 12/26/2023 12/26/2023 12/26/2023 9:50 AM CDT Assessment Noted Time PHQ-9 Depression Total Score: 6 08/28/19 21 7:05 AM LEAD TECHNOLOGIST IN CYTOGENETICS documented as of this encounter Care Teams Assistant Finance Manager Relationship Specialty Start Date End Date Marija Edgar APRN SEO STRATEGIST [address] [facility] [address] PCP - General Nurse Practitioner 04/30/20 04/14/23 Esha Grimm PA-C [address] [place] [address] PCP - General Family Medicine 05/04/23 Lita Oseguera Personal Advocate & Liaison (PAL) 02/28/20 03/27/23 Rakesh Cid PA-C [address] [place] [address] Assigned PCP 03/02/20 06/07/20 Chanelle Mccann APRN CNAdam [address] [place] [address] Assigned OBGYN Provider 05/02/2005/09 Lesley Moody, W Community Health Worker 05/30/2005/12 Kyara De La Fuente, RN Specialty Registered Sales Assistant Neurology 06/04/20 03/05/21 Marija Edgar APRN SEO STRATEGIST [address] [place] [address] Assigned PCP 06/08/20 04/29/23 Mynor Broussard MD [address] [place], [place] [address] Assigned Surgical Provider 06/01/20 11/28/21 Keisha Dotson MD [address] [place] [address] Assigned Neuroscience Provider 06/04/20 04/01/23 Mary Mejia Financial Resource Worker 08/07/20 08/21/20 Stacey Briones, [facility] Lead Registered Sales Assistant Primary Care - CC 08/11/2012/30 Lesley Moody, [facility] Community Health Worker 08/11/2010/01 Mary Mejia Financial Resource Worker 09/02/20 10/06/20 Lita Oseguera Personal Advocate & Liaison (PAL) Family Medicine 09/10/20 09/21/20 Galo Burrell MD Assigned Heart and Vascular Provider 10/05/20 04/02/22 Cristina Wood Financial Resource Worker 10/07/20 10/14/20 Lesley Moody, [facility] Community Health Worker 10/23/2012/30 Meredith Bedoya Financial Resource Worker 10/23/20 11/23/20 Cristina Wood Financial Resource Worker 02/09/21 02/09/21 [facility] [address] [place] [address] Pharmacist Pharmacist 04/17/21 Rain Galaviz PA-C [address] [place] [address] [place] [address] Physician Client Service Manager Dermatology 04/28/21 Summer Lara MD [address] [place] [address] [place] [address] Assigned OBGYN Provider 05/10/2105/23 Summer Lara MD [address] [place] [address] [place] [address] Assigned OBGYN Provider 05/31/21 Summer Lara MD [address] [place] [address] [place], [place] 6[address] Assigned OBGYN Provider 05/24/2105/30 Tavia Wyatt MD [address] [place] [address] [place] [address] Dermatology 07/14/21 Johnny Murillo MD [address] [place] [address] Assigned Musculoskeletal Provider 08/30/21 03/17/22 Erica Farrell APRN SEO STRATEGIST [address] [facility] [address] [place] [address] Nurse Practitioner Cardiovascular Disease 09/09/21 Teresita Bean, [facility] [address] [place] [address] Pharmacist Pharmacist 09/24/21 09/29/21 Tavia Wyatt MD Assigned Surgical Provider 11/29/21 05/07/22 Diana Desir, [facility] [address] [place] [address] Assigned MTM Pharmacist 01/02/22 Rich Barrett MD [address] [address] Physician Ophthalmology 01/21/22 Neil Kent MD 500 [place] [address] Dermatology 02/24/22 Roney [address]PM [address] [facility] [address] [place] [address] Assigned Musculoskeletal Provider 03/20/22 08/13/22 Erica Farrell APRN SEO STRATEGIST [address] [place] [address] Assigned Heart and Vascular Provider 04/03/22 04/16/22 Diana Desir, [facility] [address] [place] [address] Assigned MTM Pharmacist 04/07/22 Jelena David OD [address] [facility] [place] [address] Assigned Surgical Provider 05/08/22 10/08/22 Galo Burrell MD Assigned Heart and Vascular Provider 04/17/22 06/11/22 Livan Sharif MD [address] [place] [address] Cardiovascular Disease 05/14/22 Livan Sharif MD [address] [place] [address] Assigned Heart and Vascular Provider 06/12/22 07/23/22 Catherine Cm MD [address] [place] [address] Cardiovascular Disease 07/21/22 Valery Veronica, PA-C [address] [place] [address] 858395 Physician Client Service Manager Dermatology 07/21/22 Catherine Cm MD [address] [place] [address] Assigned Heart and Vascular Provider 07/24/22 11/05/22 Johnny Murillo [address] [facility] [address] [address] Assigned Musculoskeletal Provider 08/14/22 10/08/22 Brea Quinn APRN SEO STRATEGIST [address] [place] [address] 181675 Nurse Practitioner Dermatology 09/21/22 Brea Quinn APRN SEO STRATEGIST [address] [facility] [place] [address] Assigned Surgical Provider 10/09/22 [place] [address] [place] [address] Assigned Musculoskeletal Provider 10/09/22 Livan Sharif MD [address], [facility] [address] [place] [address] Assigned Heart and Vascular Provider 11/06/22 11/12/22 Catherine Cm MD [address] [place] 0428[address] Assigned Heart and Vascular Provider 11/13/22 05/27/23 Sydnie Martinez RN Personal Advocate & Liaison (PAL) Family Medicine 03/28/23 07/31/23 Alfonso Renteria MD [address] [facility] [address] [place] [address] Assigned Neuroscience Provider 04/02/23 Cheng Todd PA-C [address] [place] [address] Assigned PCP 04/30/23 07/15/23 Radha Lomeli, LBD TEACHER SEO STRATEGIST [address] [place] [address] Assigned Heart and Vascular Provider 05/28/23 Jelena David OD [address] [facility] [place] [address] MD Ophthalmology 06/15/23 Pao Joseph, RN Personal Advocate & Liaison (PAL) Nurse 08/01/23 11/07/23 Esha Grimm PA-C [address] [place] [phone] Assigned PCP 07/16/23 Valery Veronica PA-C [address] [place] [address] 765595 Physician Client Service Manager Dermatology 09/19/23 Rey Tay MD [address] [place] [address] 465815 MD Gastroenterology 09/20/23 Rocky Zepeda DO [address] [place] [address]305 Physician Gastroenterology 09/20/23 Philip Dumont MD [address] [place] [address] 448965 Physician Ophthalmology 09/22/23 Meredith Carrera PA-C [address] [place] [address] 547975 Assigned Gastroenterology Provider 11/01/23 Neil Kent MD [address] [place] [address] [id number] Dermatology 11/02/23 [place] [address] [place] [address] Neurological Surgery 12/26/23 documented as of this encounter
--- OUTSIDE RECORDS SUMMARY | 2024-02-12 05:55 | XMS_ITS | Encounter Summary ---
Author Organization [facility] Address [address] [place] [address] Care Team Providers Care Printing Machinist Name Role Phone Rakesh Cid PA-C Primary Care Provider Lita Oseguera Unavailable Unavailable Rakesh Cid PA-C Unavailable [phone] Lita Oseguera Unavailable Unavailable Marija Edgar APRN FLY FINISHER Primary Care Provider Chanelle Gutierrez GUN SEALING MACHINE OPERATOR CNM Unavailab le Lesley Moody CHW Unavailable Kyara De La Fuente RN Unavailable [phone] Marija Edgar APRN FLY FINISHER Unavailable Unavail able Mynor Broussard MD Unavailable [phone] Keisha Dotson MD Unavailable Mary Mejia Unavailable Unavailable Stacey Briones DRIVE THRU ORDER TAKER Unavailable Lesley Moody CHW Unavailable Mary Mejia Unavailable Unavailable Lita Oseguera Unavailable Unavailable Galo Burrell MD Unavailable Unavailable Cristina Wood Unavailable Lesley Moody CHW Unavailable Meredith Bedoya Unavailable Unavailable Cristina Wood Unavailable DesirDiana [facility] Unavailable [phone] Rain Galaviz-C Unavailable [phone] Summer Lara MD Unavailable Summer Lara MD Unavailable [phone] Summer Lara MD Unavailable [phone] Tavia Wyatt MD Unavailable Unavailable Johnny Murillo MD Unavailable [phone] Erica Farrell APRN FLY FINISHER Unavailable + Teresita Bean [facility] Unavailable Tavia Wyatt MD Unavailable Unavailable Diana Desir [facility] Unavailable [phone] Rich Barrett MD Unavailable [phone] Neil Kent MD Unavailable Roney Story DPM Unavailable Erica Farrell APRN FLY FINISHER Unavailable + Diana Desir [facility] Unavailable [phone] Jelena David OD Unavailable Galo Burrell MD Unavailable Unavailable Livan Sharif MD Unavailable + Livan Sharif MD Unavailable + Catherine Cm MD Unavailable + Valery Veronica-C Unavailable [phone] Catherine Cm MD Unavailable + Johnny Murillo MD Unavailable [phone] Brea Quinn APRN FLY FINISHER Unavailable [phone] [place], Brea P GUN SEALING MACHINE OPERATOR FLY FINISHER Unavailable Jose Francisco Johnson MD Unavailable Livan Sharif MD Unavailable Catherine Cm MD Unavailable + Sydnie Martinez RN Unavailable Unavailable Alfonso Renteria MD Unavailable [phone] Esha Grimm PA-C Primary Care Provider Cheng Todd PA-C Unavailable Radha Lomeli GUN SEALING MACHINE OPERATOR FLY FINISHER Unavailable Jelena David OD Unavailable Pao Joseph RN Unavailable Unavailable Esha Grimm PA-C Unavailable [phone] Valery Veronica PA-C Unavailable Rey Tay MD Unavailable Rocky Zepeda DO Unavailable Philip Dumont MD Unavailable [phone] Meredith Carrera PA-C Unavailable [phone] Neil Kent MD Unavailable Juan Pablo Emmanuel MD Unavailable Encounter Details Date Type Department Care Team (Late st Contact Info) Description 04/28/2020 [facility] Medical Advice [address] [address] Rakesh Cid PA-C [address] [place] [address] Social History Tobacco Use Types [...] Visit [facility] Rehabilitation Services [address] [address] Rustam Medina, PT [facility] [address] [place] [address] 03/06/2024 3:00 PM CDT Office Visit [facility] [place] [address] [facility] [address] [place] [phone] Radha Lomeli, GUN SEALING MACHINE OPERATOR FLY FINISHER [address] [place] [address] 03/07/2024 9:00 AM CDT Hospital Encounter [address] [phone] Rocky Zepeda DO [address] [place] [address] 03/07/2024 9:00 AM CDT - 03/07/2024 9:30 AM CDT Surgery [address] [phone] Rocky Zepeda DO [address] [place], [place] [address] Esophagoscopy, gastroscopy, duodenoscopy (EGD), combined 06/21/2024 2:00 PM RUBY DEVELOPER Office Visit [facility] Neurology [facility] [address] [facility], [address] [place] [address] [place] [address] [place] [address] Johnny Penn MD [address] [place] [address] Scheduled Procedures Name Priority Associated Diagnoses Date/Ti ri ESOPHAGOGASTRODUODENOSCOPY Eosinophilic esophagitis Esophageal dysphagia 03/07/2024 9:00 AM CDT documented as of this encounter Visit Diagnoses Not on filedocumented in this encounter Additional Health Concerns Infection Onset Date Last Indicated Resolved Time Rule Out COVID-19 07/30/2020 07/30/2020 07/30/2020 7:11 PM RUBY DEVELOPER Rule Out COVID-19 08/30/2020 08/30/2020 08/30/2020 5:05 PM RUBY DEVELOPER Rule Out COVID-19 09/24/2020 09/24/2020 09/24/2020 9:24 AM CDT Rule Out COVID-19 11/05/2020 11/05/2020 11/06/2020 1:09 PM CDT Rule Out COVID-19 05/11/2021 05/11/2021 05/13/2021 10:18 AM CDT Rule Out COVID-19 07/13/2021 07/13/2021 07/14/2021 3:04 PM RUBY DEVELOPER Rule Out COVID-19 07/18/2021 07/18/2021 07/20/2021 1:56 PM RUBY DEVELOPER COVID-19 07/18/2021 07/18/2021 08/08/2021 11:3 9 PM RUBY DEVELOPER Rule Out COVID-19 12/18/2021 12/18/2021 12/19/2021 11:34 AM CDT Rule Out COVID-19 02/24/2022 02/24/2022 02/25/2022 1:08 PM CDT Rule Out COVID-19 04/26/2022 04/26/2022 04/26/2022 6:47 AM CDT Rule Out COVID-19 05/17/2022 05/17/2022 05/17/2022 10:20 PM RUBY DEVELOPER Rule Out COVID-19 06/09/2022 06/09/2022 06/09/2022 9:35 AM RUBY DEVELOPER COVID-19 06/09/2022 06/09/2022 06/30/2022 11:4 1 PM RUBY DEVELOPER Rule Out COVID-19 11/10/2022 11/10/2022 11/11/2022 12:17 PM CDT Rule Out COVID-19 03/07/2023 03/07/2023 03/07/2023 1:20 PM CDT Rule Out COVID-19 12/26/2023 12/26/2023 12/26/2023 9:50 AM CDT Assessment Noted Time PHQ-9 Depression Total Score: 12 020 2:40 PM CDT documented as of this encounter Care Teams Printing Machinist Relationship Specialty Start Date End Date Rakesh Cid PA-C PCP - General Physician Food Adviser - Medical 05/14/19 04/29/20 Marija Edgar APRN CNP [address] [place] [address] PCP - General Nurse Practitioner 04/30/20 04/14/23 Esha Grimm PA-C [address] [facility] [place] [place] [phone] PCP - General Family Medicine 05/04/23 Lita Oseguera Personal Advocate & Liaison (PAL) 02/28/20 03/27/23 Rakesh Cid PA-C [address] [place] [address] Assigned PCP 03/02/20 06/07/20 Lita Oseguera Personal Advocate & Liaison (PAL) 04/07/20 04/29/20 Chanelle Mccann APRN CNM [address] [place], [address] [place] [address] Assigned OBGYN Provider 05/02/2005/09 Lesley Moody, CHW Community Health Worker 05/30/2005/12 Kyara De La Fuente, RN Specialty Enthone Solder Stripper Neurology 06/04/20 03/05/21 Marija Edgar APRN FLY FINISHER [address] [place] [address] Assigned PCP 06/08/20 04/29/23 Mynor Broussard MD [address] [facility] 500 [place] [address] Assigned Surgical Provider 06/01/20 11/28/21 Keisha Dotson MD [address] [place], [place] [phone] Assigned Neuroscience Provider 06/04/20 04/01/23 Mary Mejia Financial Resource Worker 08/07/20 08/21/20 Stacey Briones, [facility] Lead Enthone Solder Stripper Primary Care - CC 08/11/2012/30 Lesley Moody, [...] [facility] [address] [place], [place] [address] Pharmacist Pharmacist 04/17/21 Rain Galaviz PA-C [address] [place] [address] [place] [address] Physician Food Adviser Dermatology 04/28/21 Summer Lara MD [address] [place] [address] 148954 Assigned OBGYN Provider 05/10/2105/23 Summer Lara MD [address] [place] [address] [phone] Assigned OBGYN Provider 05/31/21 2 Summer Lara MD [address] [place] [address] [phone] Assigned OBGYN Provider 05/24/2105/30 Tavia Wyatt MD [address] [place] [address] Dermatology 07/14/21 Johnny Murilol MD [address] [place] [address] Assigned Musculoskeletal Provider 08/30/21 03/17/22 Erica Farrell APRN FLY FINISHER [address] [facility] [address] [place] [address] Nurse Practitioner Cardiovascular Disease 09/09/21 Teresita Bean, [facility] [address] [place] [id number] Pharmacist Pharmacist 09/24/21 09/29/21 Tavia Wyatt MD Assigned Surgical Provider 11/29/21 05/07/22 [facility] [address] [place] [address] Assigned MTM Pharmacist 01/02/22 Rich Barrett MD [address] [facility] [address] [place] [address] Physician Ophthalmology 01/21/22 Neil Kent MD [address] [place] [address] Dermatology 02/24/22 Roney Story DPM [address] [facility] [address] [place] [address] Assigned Musculoskeletal Provider 03/20/22 08/13/22 Erica Farrell APRN FLY FINISHER [address] [place] [address] Assigned Heart and Vascular Provider 04/03/22 04/16/22 Diana Desir, [facility] [address] [place] [address] Assigned [place] Pharmacist 04/07/22 [place] [address] [facility] [place] [address] Assigned Surgical Provider 05/08/22 10/08/22 Galo Burrell MD Assigned Heart and Vascular Provider 04/17/22 06/11/22 Livan Sharif MD [address], [address] [place] [id number] Cardiovascular Disease 05/14/22 Livan Sharif MD [address] [place] [address] Assigned Heart and Vascular Provider 06/12/22 07/23/22 Catherine Cm MD [address] [place] [address] Cardiovascular Disease 07/21/22 Valery Veronica, PAUcheC [address] [place], [place] [address] Physician Food Adviser Dermatology 07/21/22 Catherine Cm MD [address] [place] [id number] Assigned Heart and Vascular Provider 07/24/22 11/05/22 Johnny Murillo MD [facility] [address] [address] Assigned Musculoskeletal Provider 08/14/22 10/08/22 Brea Quinn APRN FLY FINISHER [address] [place] [address] Nurse Practitioner Dermatology 09/21/22 Brea Quinn APRN FLY FINISHER [facility] [place] [address] Assigned Surgical Provider 10/09/22 [place] [address] [address] Assigned Musculoskeletal Provider 10/09/22 Livan Sharif MD [address] [facility] [address] [place] [address] Assigned Heart and Vascular Provider 11/06/22 11/12/22 Catherine Cm MD [address] [facility]00 [place] [address] Assigned Heart and Vascular Provider 11/13/22 05/27/23 Sydnie Martinez, VJ Personal Advocate & Liaison (PAL) Family Medicine 03/28/23 07/31/23 Alfonso Renteria MD [address] [facility] [address] [place], [place] [address] Assigned Neuroscience Provider 04/02/23 Cheng Todd PA-C [address] [place] [address] Assigned PCP 04/30/23 07/15/23 Radha Lomeli APRN FLY FINISHER [address] [facility] [address] [place] [address] Assigned Heart and Vascular Provider 05/28/23 [address] David [place] [address] [facility] [place] [address] MD Ophthalmology 06/15/23 Pao Joseph, VJ Personal Advocate & Liaison (PAL) Nurse 08/01/23 11/07/23 Esha Grimm PA-C [address] [place] [phone] Assigned PCP 07/16/23 Valery Veronica PA-C [address] [place] [address] Physician Food Adviser Dermatology 09/19/23 Rey Tay MD [address] [place] [address] 047405 Gastroenterology 09/20/23 Rocky Zepeda DO [address] [place] [address] [phone] Physician Gastroenterology 09/20/23 Philip Dumont MD [address] [place] [address]25 Physician Ophthalmology 09/22/23 Meredith Carrera PA-C [address] [place] [address] Assigned Gastroenterology Provider 11/01/23 Neil Kent MD [address] [phone] Dermatology 11/02/23 [place] [address] [id number] Neurological Surgery 12/26/23 documented as of this encounter
--- OUTSIDE RECORDS SUMMARY | 2024-02-12 05:55 | XMS_ITS | Encounter Summary ---
Author Organization [facility] Address [address] [place] [address] Care Team Providers Care Butt Sawyer Name Role Phone Rakesh Cid PA-C Unavailable + Rakesh Cid PA-C Primary Care Provider Lita Oseguera Unavailable Unavailable Rakesh Cid PA-C Unavailable + Isaura Lamar RN Unavailable Unavailable Lita Oseguera Unavailable Unavailable Marija Edgar APRN BUSINESS ANALYSIS PROFESSIONAL Primary Care Provider Chanelle Gutierrez APRN CNM Unavailab le Lesley Moody CHW Unavailable [phone] Kyara De La Fuente RN Unavailable [phone] Marija Edgar APRN BUSINESS ANALYSIS PROFESSIONAL Unavailable Unavail able Mynor Broussard MD Unavailable [phone] Keisha Dotson MD Unavailable [phone] Mary Mejia Unavailable Unavailable Stacey Briones ENGAGEMENT QUALITY CONSULTANT Unavailable [phone] Lesley Moody CHW Unavailable [phone] Mary Mejia Unavailable Unavailable Lita Oseguera Unavailable Unavailable Galo Burrell MD Unavailable Unavailable Cristina Wood Unavailable Lesley Moody [facility] Unavailable Meredith Bedoya Unavailable Unavailable Cristina Wood Unavailable Diana Desir [facility] Unavailable [phone] Rain Galaviz PA-C Unavailable Summer Lara MD Unavailable +[phone] Summer Lara MD Unavailable + [phone] Summer Lara MD Unavailable +[phone] Tavia Wyatt MD Unavailable Unavailable Johnny Murillo MD Unavailable +[phone] Erica Farrell APRN BUSINESS ANALYSIS PROFESSIONAL Unavailable + Teresita Bean [facility] Unavailable [phone] Tavia Wyatt MD Unavailable Unavailable Diana Desir [facility] Unavailable [phone] Rich Barrett MD Unavailable [phone] Neil Kent MD Unavailable Roney Story DPM Unavailable [phone] Erica Farrell INSTRUCTIONAL SUPPORT ASSISTANT BUSINESS ANALYSIS PROFESSIONAL Unavailable + Diana Desir [facility] Unavailable [phone] Jelena David OD Unavailable Galo Burrell MD Unavailable Unavailable Livan Sharif MD Unavailable + Livan Sharif MD Unavailable + Catherine Cm MD Unavailable + Valery Veronica PA-C Unavailable [phone] Catherine Cm MD Unavailable + Johnny Murillo MD Unavailable [phone] Brea Quinn APRN BUSINESS ANALYSIS PROFESSIONAL Unavailable Brea Quinn INSTRUCTIONAL SUPPORT ASSISTANT BUSINESS ANALYSIS PROFESSIONAL Unavailable Jos eFrancisco Johnson MD Unavailable Livan Sharif MD Unavailable Catherine Cm MD Unavailable + Sydnie Martinez RN Unavailable Unavailable Alfonso Renteria MD Unavailable Esha Grimm PA-C Primary Care Provider [phone] Cheng Todd PA-C Unavailable Armani Radha Stovall INSTRUCTIONAL SUPPORT ASSISTANT BUSINESS ANALYSIS PROFESSIONAL Unavailable [phone] Frankie Jelena Garcia OD Unavailable Pao Joseph RN Unavailable Unavailable Esha Grimm PA-C Unavailable [phone] Valery Veronica PA-C Unavailable Rey Tay MD Unavailable Rocky Zepeda DO Unavailable Philip Dumont MD Unavailable Meredith Carrera PA-C Unavailable Neil Kent MD Unavailable Juan Pablo Emmanuel MD Unavailable [phone] Reason for Visit * Reason Onset Date Comments Appointment 02/13/2020 Anxiety Encounter Details Date Type Department Care Team (Late st Contact Info) Description 02/13/2020 [facility] Medical Advice [address] [address] Rakesh Cid PA-C [address] [place] [address] Appointment (Anxiety) Social History Tobacco [...] Forrester RN - 02/15/2020 2:28 PM CDT Axial Exchanget message sent to patient to schedule a [...] Visit [facility] [id number] [place] [phone] Rustam Medina, PT [facility] [id number] [place] [address] 03/06/2024 3:00 PM CDT Office Visit [facility] [address] [facility] [address] [place] [phone] Radha Lomeli, INSTRUCTIONAL SUPPORT ASSISTANT BUSINESS ANALYSIS PROFESSIONAL [address] [place] [id number] 03/07/2024 9:00 AM CDT Hospital Encounter [facility] [address] [place] [address] 5th [place] [phone] Rocky Zepeda DO [address] [place], [place] [phone] 03/07/2024 9:00 AM CDT - 03/07/2024 9:30 AM CDT Surgery [address] 5th [place] [phone] Rocky Zepeda DO [address] [place], [place] [address] Esophagoscopy, gastroscopy, duodenoscopy (EGD), combined 06/21/2024 2:00 PM SCRAP WORKER Office Visit [facility] Neurology [facility] [address] [place] [address], [address] [place] [phone] [place] [address] [address] [place], [place] [phone] Johnny Penn MD [address] [place] [id number] Scheduled Procedures Name Priority Associated Diagnoses Date/Ti me ESOPHAGOGASTRODUODENOSCOPY Eosinophilic esophagitis Esophageal dysphagia 03/07/2024 9:00 AM CDT documented as of this encounter Visit Diagnoses Not on filedocumented in this encounter Additional Health Concerns Infection Onset Date Last Indicated Resolved Time Rule Out COVID-19 07/30/2020 07/30/2020 07/30/2020 7:11 PM SCRAP WORKER Rule Out COVID-19 08/30/2020 08/30/2020 08/30/2020 5:05 PM SCRAP WORKER Rule Out COVID-19 09/24/2020 09/24/2020 09/24/2020 9:24 AM CDT Rule Out COVID-19 11/05/2020 11/05/2020 11/06/2020 1:09 PM CDT Rule Out COVID-19 05/11/2021 05/11/2021 05/13/2021 10:18 AM CDT Rule Out COVID-19 07/13/2021 07/13/2021 07/14/2021 3:04 PM SCRAP WORKER Rule Out COVID-19 07/18/2021 07/18/2021 07/20/2021 1:56 PM SCRAP WORKER COVID-19 07/18/2021 07/18/2021 08/08/2021 11:3 9 PM SCRAP WORKER Rule Out COVID-19 12/18/2021 12/18/2021 12/19/2021 11:34 AM CDT Rule Out COVID-19 02/24/2022 02/24/2022 02/25/2022 1:08 PM CDT Rule Out COVID-19 04/26/2022 04/26/2022 04/26/2022 6:47 AM CDT Rule Out COVID-19 05/17/2022 05/17/2022 05/17/2022 10:20 PM SCRAP WORKER Rule Out COVID-19 06/09/2022 06/09/2022 06/09/2022 9:35 AM SCRAP WORKER COVID-19 06/09/2022 06/09/2022 06/30/2022 11:4 1 PM SCRAP WORKER Rule Out COVID-19 11/10/2022 11/10/2022 11/11/2022 12:17 PM CDT Rule Out COVID-19 03/07/2023 03/07/2023 03/07/2023 1:20 PM CDT Rule Out COVID-19 12/26/2023 12/26/2023 12/26/2023 9:50 AM CDT Assessment Noted Time PHQ-9 Depression Total Score: 1 09/11/19 1:42 PM SCRAP WORKER documented as of this encounter Care Teams Butt Sawyer Relationship Specialty Start Date End Date Rakesh Cid PA-C [address] [facility] [facility] [place] [address] PCP - General Physician Phlebotomy Technologist - Medical 05/14/19 04/29/20 Marija Edgar APRN BUSINESS ANALYSIS PROFESSIONAL PCP - General Nurse Practitioner 04/30/20 04/14/23 Esha Grimm PA-C [address] [place] [phone] PCP - General Family Medicine 05/04/23 Rakesh Cid PA-C [address] [place] [address] Assigned PCP 05/06/19 03/01/20 Lita Oseguera Personal Advocate & Liaison (PAL) 02/28/20 03/27/23 Rakesh Cid PA-C [address] [facility] [place] [address] Assigned PCP 03/02/20 06/07/20 Isaura Lamar, RN Personal Advocate & Liaison (PAL) Family Practice 04/03/20 04/06/20 Lita Oseguera Personal Advocate & Liaison (PAL) 04/07/20 04/29/20 Chanelle Mccann APRN CNM [address] [address] Assigned OBGYN Provider 05/02/2005/09 Lesley Moody, W Community Health Worker 05/30/2005/12 Kyara De La Fuente, RN Specialty Licensed Psychiatric Technician Neurology 06/04/20 03/05/21 Marija Edgar APRN BUSINESS ANALYSIS PROFESSIONAL Assigned PCP 06/08/20 04/29/23 Mynor Broussard MD [address] [id number] Assigned Surgical Provider 06/01/20 11/28/21 Keisha Dotson MD [address] [place], [place] 8[address] Assigned Neuroscience Provider 06/04/20 04/01/23 Mary Mejia Financial Resource Worker 08/07/20 08/21/20 Stacey Briones, [facility] Lead Licensed Psychiatric Technician Primary Care - CC 08/11/2012/30 Lesley [...] Diana Desir, [facility] [address] [place] [address] Pharmacist Pharmacist 04/17/21 Rain Galaviz PA-C [address] [place] [address] [place] [address] Physician Phlebotomy Technologist Dermatology 04/28/21 Summer Lraa MD [address] [place] [address] Assigned OBGYN Provider 05/10/2105/23 Summer Lara MD [address] [place] [address] Assigned OBGYN Provider 05/31/21 2 Summer Lara MD [address] [place] [address] Assigned OBGYN Provider 05/24/2105/30 Tavia Wyatt MD [address] [place] [address] Dermatology 07/14/21 Johnny Murillo MD [address] [place] [address] Assigned Musculoskeletal Provider 08/30/21 03/17/22 Erica Farrell APRN BUSINESS ANALYSIS PROFESSIONAL [address] [facility] [address] [place] [address] Nurse Practitioner Cardiovascular Disease 09/09/21 Teresita Bean, [facility] [address] [place] [address] Pharmacist Pharmacist 09/24/21 09/29/21 Tavia Wyatt MD Assigned Surgical Provider 11/29/21 05/07/22 Diana Desir, [facility] [address] [place] [address] Assigned MTM Pharmacist 01/02/22 Rich Barrett MD [address] [address] Physician Ophthalmology 01/21/22 Neil Kent MD [address] [place], [place] [address]245 Dermatology 02/24/22 Rnoey Story DPM [address] [facility] [address] [place] [address] Assigned Musculoskeletal Provider 03/20/22 08/13/22 Erica Farrell APRN BUSINESS ANALYSIS PROFESSIONAL [address] [place] [address] Assigned Heart and Vascular Provider 04/03/22 04/16/22 Diana Desir, [facility] [address] [place] [address] Assigned MTM Pharmacist 04/07/22 [place]elena David OD [address] [facility] [place] [address] Assigned Surgical Provider 05/08/22 10/08/22 Galo Burrell MD Assigned Heart and Vascular Provider 04/17/22 06/11/22 Livan Sharif MD [address], [facility] [address] [place] [address] Cardiovascular Disease 05/14/22 Livan Sharif MD [address], [facility] [address] [place] [address] Assigned Heart and Vascular Provider 06/12/22 07/23/22 Catherine Cm MD [address] [facility] [address] [place] [address] Cardiovascular Disease 07/21/22 Valery Veronica, PAUcheC [address] [place] [address] 764295 Physician Phlebotomy Technologist Dermatology 07/21/22 Catherine Cm MD [address] [facility] [address] [place] 184115 Assigned Heart and Vascular Provider 07/24/22 11/05/22 Johnny Murillo MD [address] [place] [address]144 Assigned Musculoskeletal Provider 08/14/22 10/08/22 Brea Quinn APRN BUSINESS ANALYSIS PROFESSIONAL [address] [place] [address] [phone] Nurse Practitioner Dermatology 09/21/22 Brea Quinn APRN BUSINESS ANALYSIS PROFESSIONAL [address] [facility] [place] [address] Assigned Surgical Provider 10/09/22 [place] [address] [place] [address] Assigned Musculoskeletal Provider 10/09/22 Livan Sharif MD [address], [facility] [address] [place] [address] Assigned Heart and Vascular Provider 11/06/22 11/12/22 Catherine Cm MD [address] [place] [address] [place] [id number] Assigned Heart and Vascular Provider 11/13/22 05/27/23 Sydnie Martinez RN Personal Advocate & Liaison (PAL) Family Medicine 03/28/23 07/31/23 Alfonso Renteria MD [address] [facility] [address] [place] [address] Assigned Neuroscience Provider 04/02/23 Cheng Todd PA-C [address] [place] [address] Assigned PCP 04/30/23 07/15/23 Radha Lomeli APRN BUSINESS ANALYSIS PROFESSIONAL [address] [place] [address] Assigned Heart and Vascular Provider 05/28/23 Jelena David OD [address] [facility] [place] [address] MD Ophthalmology 06/15/23 Pao Joseph, RN Personal Advocate & Liaison (PAL) Nurse 08/01/23 11/07/23 Esha Grimm PA-C [address] [place] [address] Assigned PCP 07/16/23 Valery Veronica PA-C [address] [place] [address] Physician Phlebotomy Technologist Dermatology 09/19/23 Rey Tay MD [address] [place] [address] MD Gastroenterology 09/20/23 Rocky Zepeda DO [address] [place] [address] [phone] Physician Gastroenterology 09/20/23 Philip Dumont MD [address] [place] [address] [phone] Physician Ophthalmology 09/22/23 Meredith Carrera PA-C [address] [place] [address] [phone] Assigned Gastroenterology Provider 11/01/23 Neil Kent MD [address] 611[address] Dermatology 11/02/23 [place] [address] [place], [place] [address] Neurological Surgery 12/26/23 documented as of this encounter
--- OUTSIDE RECORDS SUMMARY | 2024-02-12 05:55 | XMS_ITS | Encounter Summary ---
Author Organization [facility] Address [address] [place] [address] Care Team Providers Care Supervisor Dried Yeast Name Role Phone Lita Oseguera Unavailable Unavailable Marija Edgar APRN MEDICAL SERVICES COORDINATOR Primary Care Provider Chanelle Gutierrez APRN CNM Unavailab le Kyara De La Fuente RN Unavailable [phone] Marija Edgar APRN MEDICAL SERVICES COORDINATOR Unavailable Unavail able Mynor Broussard MD Unavailable [phone] Keisha Dotson MD Unavailable Mary Mejia Unavailable Unavailable Stacey Briones LOAN EXPEDITOR Unavailable Lesley Moody CHW Unavailable Mary Mejia Unavailable Unavailable Lita Oseguera Unavailable Unavailable Galo Burrell MD Unavailable Unavailable Cristina Wood Unavailable Lesley Moody CHW Unavailable Meredith Bedoya Unavailable Unavailable Cristina Wood Unavailable Diana Desir [facility] Unavailable Rain Galaviz PA-C Unavailable Summer Lara MD Unavailable [phone] Summer Lara MD Unavailable [phone] Summer Lara MD Unavailable + [phone] Tavia Wyatt MD Unavailable Unavailable SemJohnny mckeon MD Unavailable +1- Erica Farrell [employer] MEDICAL SERVICES COORDINATOR Unavailable + BeanTeresita RPH Unavailable Tavia Wyatt MD Unavailable Unavailable Diana Desir H Unavailable [phone] Rich Barrett MD Unavailable [phone] Neil Kent MD Unavailable Roney Story DPM Unavailable [phone] Erica Farrell [employer] MEDICAL SERVICES COORDINATOR Unavailable + Diana Desir RPH Unavailable [phone] Jelena David OD Unavailable [phone] Galo Burrell MD Unavailable Unavailable Livan Sharif MD Unavailable + Livan Sharif MD Unavailable + Catherine Cm MD Unavailable + Valery Veronica PA-C Unavailable [phone] Catherine Cm MD Unavailable + Johnny Murillo MD Unavailable +1- Brea Quinn [employer] MEDICAL SERVICES COORDINATOR Unavailable [phone] Brea Quinn [employer] MEDICAL SERVICES COORDINATOR Unavailable [phone] Jose Francisco Johnson MD Unavailable Livan Sharif MD Unavailable + Catherine Cm MD Unavailable + Sydnie Martinez RN Unavailable Unavailable Alfonso Renteria MD Unavailable [phone] Esha Grimm PA-C Primary Care Provider Cheng Todd PA-C Unavailable Radha Lomeli APRN MEDICAL SERVICES COORDINATOR Unavailable Jelena David OD Unavailable [phone] Pao Joseph RN Unavailable Unavailable Esha Grimm PA-C Unavailable [phone] Valery Veronica PA-C Unavailable [phone] Rey Tay MD Unavailable Rocky Zepeda DO Unavailable Philip Dumont MD Unavailable Meredith Carrera PA-C Unavailable [phone] Neil Kent MD Unavailable Juna Pablo Emmanuel MD Unavailable [phone] Encounter Details Date Type Department Care Team (Late st Contact Info) Description 07/10/2020 MyC Medical Advice [facility] [place] [address] [place] [address] Mynor Broussard MD [address] [place] [address] Social History Tobacco Use Types [...] COVID-19? No / Unsure 06/24/2020 3:01 PM HELP DESK ENGINEER documented as of this encounter Plan of Treatment Upcoming Encounters Date Type Department Care Team (Latest Contact Info) Description 02/14/2024 12:50 PM CDT Therapy Visit [facility] [place] [address] [place] [phone] Rustam Medina, PT [facility] [address] [place] [address] 03/06/2024 3:00 PM CDT Office Visit [facility] [address] [facility] [address] [place] [phone] Radha Lomeli APRN MEDICAL SERVICES COORDINATOR [address] [facility] [address] [place] [address] 03/07/2024 9:00 AM CDT Hospital Encounter [address] [place] [phone] Rocky Zepeda DO [address] [place], [place] [id number] 03/07/2024 9:00 AM CDT - 03/07/2024 9:30 AM CDT Surgery [address] [place] [phone] Rocky Zepeda DO [address] [place], [place] [address] Esophagoscopy, gastroscopy, duodenoscopy (EGD), combined 06/21/2024 2:00 PM HELP DESK ENGINEER Office Visit [facility] [place] [address] [place] [address], [address] [place] [phone] [place] [address] [place], [place] [phone] Johnny Penn MD [address] [place], [place] [id number] Scheduled Procedures Name Priority Associated Diagnoses Date/Ti nj ESOPHAGOGASTRODUODENOSCOPY Eosinophilic esophagitis Esophageal dysphagia 03/07/2024 9:00 AM CDT documented as of this encounter Visit Diagnoses Not on filedocumented in this encounter Additional Health Concerns Infection Onset Date Last Indicated Resolved Time Rule Out COVID-19 07/30/2020 07/30/2020 07/30/2020 7:11 PM HELP DESK ENGINEER Rule Out COVID-19 08/30/2020 08/30/2020 08/30/2020 5:05 PM HELP DESK ENGINEER Rule Out COVID-19 09/24/2020 09/24/2020 09/24/2020 9:24 AM CDT Rule Out COVID-19 11/05/2020 11/05/2020 11/06/2020 1:09 PM CDT Rule Out COVID-19 05/11/2021 05/11/2021 05/13/2021 10:18 AM CDT Rule Out COVID-19 07/13/2021 07/13/2021 07/14/2021 3:04 PM HELP DESK ENGINEER Rule Out COVID-19 07/18/2021 07/18/2021 07/20/2021 1:56 PM HELP DESK ENGINEER COVID-19 07/18/2021 07/18/2021 08/08/2021 11:3 9 PM HELP DESK ENGINEER Rule Out COVID-19 12/18/2021 12/18/2021 12/19/2021 11:34 AM CDT Rule Out COVID-19 02/24/2022 02/24/2022 02/25/2022 1:08 PM CDT Rule Out COVID-19 04/26/2022 04/26/2022 04/26/2022 6:47 AM CDT Rule Out COVID-19 05/17/2022 05/17/2022 05/17/2022 10:20 PM HELP DESK ENGINEER Rule Out COVID-19 06/09/2022 06/09/2022 06/09/2022 9:35 AM HELP DESK ENGINEER COVID-19 06/09/2022 06/09/2022 06/30/2022 11:4 1 PM HELP DESK ENGINEER Rule Out COVID-19 11/10/2022 11/10/2022 11/11/2022 12:17 PM CDT Rule Out COVID-19 03/07/2023 03/07/2023 03/07/2023 1:20 PM CDT Rule Out COVID-19 12/26/2023 12/26/2023 12/26/2023 9:50 AM CDT Assessment Noted Time PHQ-9 Depression Total Score: 9 06/25/20 20 7:04 AM HELP DESK ENGINEER documented as of this encounter Care Teams Supervisor Dried Yeast Relationship Specialty Start Date End Date Marija Edgar APRN MEDICAL SERVICES COORDINATOR PCP - General Nurse Practitioner 04/30/20 04/14/23 Esha Grimm PA-C [address] [place] [phone] PCP - General Family Medicine 05/04/23 Lita Oseguera Personal Advocate & Liaison (PAL) 02/28/20 03/27/23 Chanelle Mccann APRN CNAdam [address] [place] [address] [address] [place] [address] Assigned OBGYN Provider 05/02/2005/09 Kyara De La Fuente, RN Specialty Dandy Tender Neurology 06/04/20 03/05/21 Marija Edgar APRN MEDICAL SERVICES COORDINATOR Assigned PCP 06/08/20 04/29/23 Mynor Broussard MD [address] [facility] [address] [place] [address] Assigned Surgical Provider 06/01/20 11/28/21 Keisha Dotson MD [address] [place], [place] [address] Assigned Neuroscience Provider 06/04/20 04/01/23 Nikiatimothy Mary Financial Resource Worker 08/07/20 08/21/20 Stacey Briones, [facility] Lead Dandy Tender Primary Care - CC 08/11/2012/30 Lesley Moody, [facility] Community Health Worker 08/11/2010/01 Mary Mejia Financial Resource Worker 09/02/20 10/06/20 Lita Oseguera Personal Advocate & Liaison (PAL) Family Medicine 09/10/20 09/21/20 Galo Burrell MD Assigned Heart and Vascular Provider 10/05/20 04/02/22 Cristina Wood Financial Resource Worker 10/07/20 10/14/20 Lesley Moody, [facility] Community Health Worker 10/23/2012/30 Meredith Bedoya Financial Resource Worker 10/23/20 11/23/20 Cristina Wood Financial Resource Worker 02/09/21 02/09/21 Diana Desir, [facility] [address] [place] [address] Pharmacist Pharmacist 04/17/21 Rain Galaviz PA-C [address] [place] [address] [address] [facility] [address] Physician Sustainable Design Consultant Dermatology 04/28/21 Summer Lara MD [address] [place] [address] Assigned OBGYN Provider 05/10/2105/23 Summer Lara MD [address] [place] [address] Assigned OBGYN Provider 05/31/21 Summer Lara MD [address] [place] [address] Assigned OBGYN Provider 05/24/2105/30 Tavia Wyatt MD [address] [place] [address] [facility] 07/14/21 Johnny Murillo MD [address] [place] [address] Assigned Musculoskeletal Provider 08/30/21 03/17/22 Erica Farrell APRN MEDICAL SERVICES COORDINATOR [address] [facility] [address] [place] [address] Nurse Practitioner Cardiovascular Disease 09/09/21 Teresita Bean [facility] [address] [place] [address] Pharmacist Pharmacist 09/24/21 09/29/21 Tavia Wyatt MD Assigned Surgical Provider 11/29/21 05/07/22 Diana Desir, [facility] [address] [place] [address] Assigned MTM Pharmacist 01/02/22 Rich Barrett MD [address] [facility] [address] [place] [address] Physician Ophthalmology 01/21/22 Neil Kent MD [address] [place] [address] Dermatology 02/24/22 Roney Story DPM [address] [facility] [address] [place], [place] [address] Assigned Musculoskeletal Provider 03/20/22 08/13/22 Erica Farrell APRN MEDICAL SERVICES COORDINATOR [address] [place] [address] Assigned Heart and Vascular Provider 04/03/22 04/16/22 [facility] [address] [place], [place] [address] Assigned MTM Pharmacist 04/07/22 Jelena David OD [address] [facility] [place] [address] Assigned Surgical Provider 05/08/22 10/08/22 Galo Burrell MD Assigned Heart and Vascular Provider 04/17/22 06/11/22 Livan Sharif MD [address] [place] [address] Cardiovascular Disease 05/14/22 Livan Sharif MD [address] [place] [address] Assigned Heart and Vascular Provider 06/12/22 07/23/22 Catherine Cm MD [address] [facility] [address] [facility]00 [place] [address] Cardiovascular Disease 07/21/22 Valery Veronica, PA-C [address] [place], [place] [address] Physician Sustainable Design Consultant Dermatology 07/21/22 Catherine Cm MD [id number] [place] [address] Assigned Heart and Vascular Provider 07/24/22 11/05/22 Johnny Murillo MD [address] [place] [address]124 Assigned Musculoskeletal Provider 08/14/22 10/08/22 Brea Quinn APRN MEDICAL SERVICES COORDINATOR [address] [place] [address] [phone] Nurse Practitioner Dermatology 09/21/22 Brea Quinn APRN MEDICAL SERVICES COORDINATOR [address] [place] [address] [place] [address]322 Assigned Surgical Provider 10/09/22 [place] [address] [place] [address] Assigned Musculoskeletal Provider 10/09/22 Livan Sharif MD [address], [facility] [address] [place] [address] Assigned Heart and Vascular Provider 11/06/22 11/12/22 Catherine Cm MD [address] [place] [address] Assigned Heart and Vascular Provider 11/13/22 05/27/23 Sydnie Martinez, RN Personal Advocate & Liaison (PAL) Family Medicine 03/28/23 07/31/23 Alfonso Renteria MD [address] [facility] 200 [place] [address] Assigned Neuroscience Provider 04/02/23 Cheng Todd PA-C [address] [place] [address] Assigned PCP 04/30/23 07/15/23 Radha Lomeli APRN MEDICAL SERVICES COORDINATOR [address] [place] [address] Assigned Heart and Vascular Provider 05/28/23 Jelena David OD [facility] [facility] [place] [address] Ophthalmology 06/15/23 Pao Joseph, VJ Personal Advocate & Liaison (PAL) Nurse 08/01/23 11/07/23 Esha Grimm PA-C [address] [place] [phone] Assigned PCP 07/16/23 Valery Veronica PA-C [address] [place] [address] Physician Sustainable Design Consultant Dermatology 09/19/23 Rey Tay MD [address] [place] [address] MD Gastroenterology 09/20/23 Rocky Zepeda DO [address] [place] [address] Physician Gastroenterology 09/20/23 Philip Dumont MD [address] [place] [address] Physician Ophthalmology 09/22/23 Meredith Carrera PA-C [address] [place] [address] Assigned Gastroenterology Provider 11/01/23 Neil Kent MD [address] [place] [address] Dermatology 11/02/23 [place] [address] [place] [address] Neurological Surgery 12/26/23 documented as of this encounter
--- OUTSIDE RECORDS SUMMARY | 2024-02-12 05:55 | XMS_ITS | Encounter Summary ---
Author Organization [facility] Address [address] [place] [address] Care Team Providers Care Cloth Checker Name Role Phone Lita Oseguera Unavailable Unavailable Rakesh Cid PA-C Unavailable + [phone] Marija Edgar SACK SORTER SMOKE JUMPER Primary Care Provider Chanelle Gutierrez SACK SORTER CNM Unavailab le Lesley Moody CHW Unavailable Kyara De La Fuente RN Unavailable [phone] Marija Edgar APRN SMOKE JUMPER Unavailable Unavail able Mynor Broussard MD Unavailable [phone] Keisha Dotson MD Unavailable [phone] Mary Mejia Unavailable Unavailable Stacey Briones GRAPHIC USER INTERFACE DESIGNER Unavailable [phone] Lesley Moody CHW Unavailable [phone] Mary Mejia Unavailable Unavailable Lita Oseguera Unavailable Unavailable Galo Burrell MD Unavailable Unavailable Cristina Wood Unavailable Lesley Moody CHW Unavailable Meredith Bedoya Unavailable Unavailable Cristina Wood Unavailable Diana Desir RPH Unavailable [phone] AnastaciaKailaRainsuki Paredes PA-C Unavailable [phone] Summer Lara MD Unavailable [phone] Summer Lara MD Unavailable [phone] Summer Lara MD Unavailable [phone] Tavia Wyatt MD Unavailable Unavailable Johnny Murillo MD Unavailable +1- Erica Farrell SACK SORTER SMOKE JUMPER Unavailable + VikasTeresita [facility] Unavailable Tavia Wyatt MD Unavailable Unavailable Diana Dseir [facility] Unavailable [phone] Rich Barrett MD Unavailable [phone] Neil Kent MD Unavailable Roney Story DPM Unavailable [phone] Erica Farrell SACK SORTER SMOKE JUMPER Unavailable Diana Desir [facility] Unavailable [phone] Jelena David OD Unavailable Galo Burrell MD Unavailable Unavailable Livan Sharif MD Unavailable + Livan Sharif MD Unavailable + Catherine Cm MD Unavailable + Valery Veronica PA-C Unavailable [phone] Catherine Cm MD Unavailable + Johnny Murillo MD Unavailable +1- Bera Quinn SACK SORTER SMOKE JUMPER Unavailable [phone] Brea Quinn SACK SORTER SMOKE JUMPER Unavailable [phone] Jose Francisco Johnson MD Unavailable Livan Sharif MD Unavailable Catherine Cm MD Unavailable + Sydnie Martinez RN Unavailable Unavailable Alfonso Renteria MD Unavailable [phone] Esha Grimm PA-C Primary Care Provider Cheng Todd PA-C Unavailable ArmaniRadha APRN SMOKE JUMPER Unavailable [phone] Jelena David OD Unavailable Pao Joseph RN Unavailable Unavailable Esha Grimm PA-C Unavailable [phone] Valery Veronica PA-C Unavailable [phone] Rey Tay MD Unavailable Rocky Zepeda DO Unavailable Philip Dumont MD Unavailable [phone] Meredith Carrera PA-C Unavailable [phone] Neil Kent MD Unavailable Juan Pablo Emmanuel MD Unavailable [phone] Encounter Details Date Type Department Care Team (Late st Contact Info) Description 05/16/2020 MyC Medical Advice [facility] [id number] [place] [phone] Jerome Ferrell, RN Social History Tobacco [...] COVID-19? No / Unsure 05/12/2020 9:03 AM SR. MANAGER documented as of this encounter Plan of Treatment Upcoming Encounters Date Type Department Care Team (Latest Contact Info) Description 02/14/2024 12:50 PM CDT Therapy Visit [facility] [place] [address] [place] [address] Rustam Medina, PT [facility] [address] [place] [address] 03/06/2024 3:00 PM CDT Office Visit [facility] Heart [facility] [address] [facility] [address] [place] [phone] Radha Lomeli APRN SMOKE JUMPER [address] [facility] [address] [place] [address] 03/07/2024 9:00 AM CDT Hospital Encounter [address] [place] [phone] Rocky Zepeda DO [address] [place], [place] [address] 03/07/2024 9:00 AM CDT - 03/07/2024 9:30 AM CDT Surgery [address] [place] [phone] Rocky Zepeda DO [address] [place], [place] [id number] Esophagoscopy, gastroscopy, duodenoscopy (EGD), combined 06/21/2024 2:00 PM SR. MANAGER Office Visit [facility] Neurology Clinics - [address], [address] [place] [phone] [place] [address] [place], [place] [address] Johnny Penn MD [address] [place] [address] Scheduled Procedures Name Priority Associated Diagnoses Date/Ti ky ESOPHAGOGASTRODUODENOSCOPY Eosinophilic esophagitis Esophageal dysphagia 03/07/2024 9:00 AM CDT documented as of this encounter Visit Diagnoses Not on filedocumented in this encounter Additional Health Concerns Infection Onset Date Last Indicated Resolved Time Rule Out COVID-19 07/30/2020 07/30/2020 07/30/2020 7:11 PM SR. MANAGER Rule Out COVID-19 08/30/2020 08/30/2020 08/30/2020 5:05 PM SR. MANAGER Rule Out COVID-19 09/24/2020 09/24/2020 09/24/2020 9:24 AM CDT Rule Out COVID-19 11/05/2020 11/05/2020 11/06/2020 1:09 PM CDT Rule Out COVID-19 05/11/2021 05/11/2021 05/13/2021 10:18 AM CDT Rule Out COVID-19 07/13/2021 07/13/2021 07/14/2021 3:04 PM SR. MANAGER Rule Out COVID-19 07/18/2021 07/18/2021 07/20/2021 1:56 PM SR. MANAGER COVID-19 07/18/2021 07/18/2021 08/08/2021 11:3 9 PM SR. MANAGER Rule Out COVID-19 12/18/2021 12/18/2021 12/19/2021 11:34 AM CDT Rule Out COVID-19 02/24/2022 02/24/2022 02/25/2022 1:08 PM CDT Rule Out COVID-19 04/26/2022 04/26/2022 04/26/2022 6:47 AM CDT Rule Out COVID-19 05/17/2022 05/17/2022 05/17/2022 10:20 PM SR. MANAGER Rule Out COVID-19 06/09/2022 06/09/2022 06/09/2022 9:35 AM SR. MANAGER COVID-19 06/09/2022 06/09/2022 06/30/2022 11:4 1 PM SR. MANAGER Rule Out COVID-19 11/10/2022 11/10/2022 11/11/2022 12:17 PM CDT Rule Out COVID-19 03/07/2023 03/07/2023 03/07/2023 1:20 PM CDT Rule Out COVID-19 12/26/2023 12/26/2023 12/26/2023 9:50 AM CDT Assessment Noted Time PHQ-9 Depression Total Score: 12 020 2:40 PM CDT documented as of this encounter Care Teams Cloth Checker Relationship Specialty Start Date End Date Marija Edgar APRN SMOKE JUMPER [address] [facility] [place] [address] PCP - General Nurse Practitioner 04/30/20 04/14/23 Esha Grimm PA-C [address] [place] [phone] PCP - General Family Medicine 05/04/23 Lita Oseguera Personal Advocate & Liaison (PAL) 02/28/20 03/27/23 Rakesh Cid PA-C [address] [facility] [place] [address] Assigned PCP 03/02/20 06/07/20 Chanelle Mccann APRN CNM [address] [place] [address] [phone] Assigned OBGYN Provider 05/02/2005/09 Lesley Moody, W Community Health Worker 05/30/2005/12 Kyara De La Fuente, RN Specialty Volunteer Recruitment Coordinator Neurology 06/04/20 03/05/21 Marija Edgar APRN SMOKE JUMPER [address] [place] [address] Assigned PCP 06/08/20 04/29/23 Mynor Broussard MD [address] [id number] Assigned Surgical Provider 06/01/20 11/28/21 Keisha Dotson MD [address] [place] [address] Assigned Neuroscience Provider 06/04/20 04/01/23 Mary Mejia Financial Resource Worker 08/07/20 08/21/20 Stacey Briones, [facility] Lead Volunteer Recruitment Coordinator Primary Care - CC 08/11/2012/30 Lesley Moody, [facility] Community Health Worker 08/11/2010/01 Mary Mejia Financial Resource Worker 09/02/20 10/06/20 Lita Oseguera Personal Advocate & Liaison (PAL) Family Medicine 09/10/20 09/21/20 Galo Burrell MD Assigned Heart and Vascular Provider 10/05/20 04/02/22 Cristina Wood Financial Resource Worker 10/07/20 10/14/20 Lesley Moody, [facility] Community Health Worker 10/23/2012/30 Meredith Bedoya Financial Resource Worker 10/23/20 11/23/20 Cristina Wood Financial Resource Worker 02/09/21 02/09/21 Diana Desir, [facility] [address] [place] [address] Pharmacist Pharmacist 04/17/21 Rain Galaviz PA-C [address] [place] [address] [place] [address] Physician Cemetery Workers Supervisor Dermatology 04/28/21 Summer Lara MD [address] [facility] [address] Assigned OBGYN Provider 05/10/2105/23 Summer Lara MD [address] [place] [address] [place] [address] Assigned OBGYN Provider 05/31/21 2 Summer Lara MD [address] [place] [address] [place], [place] [address] Assigned OBGYN Provider 05/24/2105/30 Tavia Wyatt MD [address] [place] [address] Dermatology 07/14/21 Johnny Murillo MD [address] [place] [address] Assigned Musculoskeletal Provider 08/30/21 03/17/22 Erica Farrell APRN SMOKE JUMPER [address] [facility] [address] [place] [address] Nurse Practitioner Cardiovascular Disease 09/09/21 Teresita Bean, [facility] [place] [address] Pharmacist Pharmacist 09/24/21 09/29/21 Tavia Wyatt MD Assigned Surgical Provider 11/29/21 05/07/22 Diana Desir, [facility] [address] [place] [address] Assigned MTM Pharmacist 01/02/22 Rich Barrett MD [address] [phone] Physician Ophthalmology 01/21/22 Neil Kent MD [address] [place], [place] 8[address] Dermatology 02/24/22 Roney Story DPM [address] [facility] [address] [place], [place] [address] Assigned Musculoskeletal Provider 03/20/22 08/13/22 Erica Farrell APRN SMOKE JUMPER [address] [place] [address] Assigned Heart and Vascular Provider 04/03/22 04/16/22 Diana Desir, [facility] [address] [place] [address] Assigned MTM Pharmacist 04/07/22 Jelena David OD [address] [facility] [place] [address] Assigned Surgical Provider 05/08/22 10/08/22 Galo Burrell MD Assigned Heart and Vascular Provider 04/17/22 06/11/22 Livan Sharif MD [address] [place] [address] Cardiovascular Disease 05/14/22 Livan Sharif MD [address] [place] [address] Assigned Heart and Vascular Provider 06/12/22 07/23/22 Catherine Cm MD [address] [place] [address] Cardiovascular Disease 07/21/22 Valery Veronica, PA-C [address] [place] [address]005 Physician Cemetery Workers Supervisor Dermatology 07/21/22 Catherine Cm MD [address] [place] [address] Assigned Heart and Vascular Provider 07/24/22 11/05/22 Johnny Murillo MD [facility] [place] [address] [phone] Assigned Musculoskeletal Provider 08/14/22 10/08/22 Brea Quinn APRN SMOKE JUMPER [address] [place] [address] [phone] Nurse Practitioner Dermatology 09/21/22 Brea Quinn SACK SORTER SMOKE JUMPER [address] [facility] [place] [address] Assigned Surgical Provider 10/09/22 [place] [address] [address] [facility] [address] [place] [address] Assigned Musculoskeletal Provider 10/09/22 Livan Sharif MD [address], [facility] [address] [place] [phone] Assigned Heart and Vascular Provider 11/06/22 11/12/22 Catherine Cm MD [address] [place] [address]05 Assigned Heart and Vascular Provider 11/13/22 05/27/23 Sydnie Martinez RN Personal Advocate & Liaison (PAL) Family Medicine 03/28/23 07/31/23 Alfonso Renteria MD [address] [facility] [address] [place] [address] Assigned Neuroscience Provider 04/02/23 Cheng Todd PA-C [address] [place] [address] Assigned PCP 04/30/23 07/15/23 Radha Lomeli, ARLENE SMOKE JUMPER [address] [place] [address] Assigned Heart and Vascular Provider 05/28/23 Jelena David OD [address] [facility] [place] [address] MD Ophthalmology 06/15/23 Pao Joseph, RN Personal Advocate & Liaison (PAL) Nurse 08/01/23 11/07/23 Esha Grimm PA-C [address] [place] [phone] Assigned PCP 07/16/23 Valery Veronica PA-C [address] [place] [address] 855725 Physician Cemetery Workers Supervisor Dermatology 09/19/23 Rey Tay MD [address] [place] [id number] MD Gastroenterology 09/20/23 Rocky Zepeda DO [address] [place] [address] [phone] Physician Gastroenterology 09/20/23 Philip Dumont MD [address] [place] [address] [phone] Physician Ophthalmology 09/22/23 Meredith Carrera PA-C [address] [place] [address] 555525 Assigned Gastroenterology Provider 11/01/23 Neil Kent MD [address] [address] Dermatology 11/02/23 [place] [address] [place] [address] Neurological Surgery 12/26/23 documented as of this encounter
--- OUTSIDE RECORDS SUMMARY | 2024-02-12 05:55 | XMS_ITS | Encounter Summary ---
Author Organization [facility] Address [address] [place] [address] Care Team Providers Care Billet Driller Name Role Phone Lita Oseguera Unavailable Unavailable Rakesh Cid PA-C Unavailable + [phone] Marija Edgar RETAIL VISUAL MERCHANDISER ASSEMBLER CARDS AND ANNOUNCEMENTS Primary Care Provider Chanelle Gutierrez RETAIL VISUAL MERCHANDISER CNM Unavailab le Lesley Moody CHW Unavailable Kyara De La Fuente RN Unavailable [phone] Marija Edgar APRN ASSEMBLER CARDS AND ANNOUNCEMENTS Unavailable Unavail able Mynor Broussard MD Unavailable [phone] Keisha Dotson MD Unavailable [phone] Mary Mejia Unavailable Unavailable Stacey Briones TURN LASTER Unavailable [phone] Lesley Moody CHW Unavailable Mary Mejia Unavailable Unavailable Lita Oseguera Unavailable Unavailable Galo Burrell MD Unavailable Unavailable Cristina Wood Unavailable Lesley Moody CHW Unavailable Meredith Bedoya Unavailable Unavailable Cristina Wood Unavailable Diana Desir RPH Unavailable [phone] AnastaciaKailaRainsuki Paredes PA-C Unavailable [phone] Summer Lara MD Unavailable [phone] Summer Lara MD Unavailable [phone] Summer Lara MD Unavailable [phone] Tavia Wyatt MD Unavailable Unavailable Johnny Murillo MD Unavailable [phone] Erica Farrell RETAIL VISUAL MERCHANDISER ASSEMBLER CARDS AND ANNOUNCEMENTS Unavailable + VikasTeresita [facility] Unavailable Tavia Wyatt MD Unavailable Unavailable Diana Desir [facility] Unavailable [phone] Rich Barrett MD Unavailable [phone] Neil Kent MD Unavailable Roney Story DPM Unavailable [phone] Erica Farrell RETAIL VISUAL MERCHANDISER ASSEMBLER CARDS AND ANNOUNCEMENTS Unavailable Diana Desir [facility] Unavailable [phone] Jelena David OD Unavailable Galo Burrell MD Unavailable Unavailable Livan Sharif MD Unavailable + Livan Sharif MD Unavailable + Catherine Cm MD Unavailable + Valery Veronica PA-C Unavailable [phone] Catherine Cm MD Unavailable + Johnny Murillo MD Unavailable +[phone] Brea Quinn RETAIL VISUAL MERCHANDISER ASSEMBLER CARDS AND ANNOUNCEMENTS Unavailable [phone] Brea Quinn RETAIL VISUAL MERCHANDISER ASSEMBLER CARDS AND ANNOUNCEMENTS Unavailable [phone] Jose Francisco Johnson MD Unavailable Livan Sharif MD Unavailable Catherine Cm MD Unavailable + Sydnie Martinez RN Unavailable Unavailable Alfonso Renteria MD Unavailable [phone] Esha Grimm PA-C Primary Care Provider Cheng Todd PA-C Unavailable Radha Lomeli APRN ASSEMBLER CARDS AND ANNOUNCEMENTS Unavailable [phone] FrankieJelena OD Unavailable Pao Joseph RN Unavailable Unavailable Esha Grimm PA-C Unavailable [phone] Valery Veronica PA-C Unavailable [phone] Rey Tay MD Unavailable Rocky Zepeda DO Unavailable Philip Dumont MD Unavailable [phone] Meredith Carrera PA-C Unavailable [phone] Neil Kent MD Unavailable Juan Pablo Emmanuel MD Unavailable [phone] Encounter Details Date Type Department Care Team (Late st Contact Info) Description 06/05/2020 MyC Medical Advice [address] [address] Marija Egdar, ARLENE ASSEMBLER CARDS AND ANNOUNCEMENTS Social History Tobacco Use Types Packs/Day Years [...] COVID-19? No / Unsure 06/04/2020 10:30 AM OPHTHALMOLOGY SURGICAL TECHNICIAN documented as of this encounter Miscellaneous Notes * Telephone Encounter - Marija Edgar APRN CNP - 06/09/2020 9:38 AM OPHTHALMOLOGY SURGICAL TECHNICIAN Those referrals have been placed. The mental health attempted call but patient did not answer. Please have patient check voicemail's or await one further follow-up call. They will call her to set up Holter monitor. Thank you Marija Edgar APRN CNP on 06/09/2020 at 9:40 AM HALMOLOGY SURGICAL TECHNICIAN documented in this encounter Plan of Treatment Upcoming Encounters Date Type Department Care Team (Latest Contact Info) Description 02/14/2024 12:50 PM CDT Therapy Visit [facility] [address] [address] Rustam Medina, PT [facility] [address] [place] [address] 03/06/2024 3:00 PM CDT Office Visit [facility] [place] [address] [facility] [address] [place] [phone] Radha Lomeli APRN ASSEMBLER CARDS AND ANNOUNCEMENTS [address] [facility] [address] [place] [address] 03/07/2024 9:00 AM CDT Hospital Encounter [facility] [address] [place] [address] [address] 5[address] [place] [phone] Rocky Zepeda DO [address] [place] [address] 03/07/2024 9:00 AM CDT - 03/07/2024 9:30 AM CDT Surgery [address] 5[address] [place] [phone] Rocky Zepeda, DO [address] [place], [place] [id number] Esophagoscopy, gastroscopy, duodenoscopy (EGD), combined 06/21/2024 2:00 PM OPHTHALMOLOGY SURGICAL TECHNICIAN Office Visit [facility] [place] [address] [facility], [address] [place] [address] [place] [address] [facility] [place] [address] Johnny Penn MD [address] [place] [address] Scheduled Procedures Name Priority Associated Diagnoses Date/Ti nj ESOPHAGOGASTRODUODENOSCOPY Eosinophilic esophagitis Esophageal dysphagia 03/07/2024 9:00 AM CDT documented as of this encounter Visit Diagnoses Not on filedocumented in this encounter Additional Health Concerns Infection Onset Date Last Indicated Resolved Time Rule Out COVID-19 07/30/2020 07/30/2020 07/30/2020 7:11 PM OPHTHALMOLOGY SURGICAL TECHNICIAN Rule Out COVID-19 08/30/2020 08/30/2020 08/30/2020 5:05 PM OPHTHALMOLOGY SURGICAL TECHNICIAN Rule Out COVID-19 09/24/2020 09/24/2020 09/24/2020 9:24 AM CDT Rule Out COVID-19 11/05/2020 11/05/2020 11/06/2020 1:09 PM CDT Rule Out COVID-19 05/11/2021 05/11/2021 05/13/2021 10:18 AM CDT Rule Out COVID-19 07/13/2021 07/13/2021 07/14/2021 3:04 PM OPHTHALMOLOGY SURGICAL TECHNICIAN Rule Out COVID-19 07/18/2021 07/18/2021 07/20/2021 1:56 PM OPHTHALMOLOGY SURGICAL TECHNICIAN COVID-19 07/18/2021 07/18/2021 08/08/2021 11:3 9 PM OPHTHALMOLOGY SURGICAL TECHNICIAN Rule Out COVID-19 12/18/2021 12/18/2021 12/19/2021 11:34 AM CDT Rule Out COVID-19 02/24/2022 02/24/2022 02/25/2022 1:08 PM CDT Rule Out COVID-19 04/26/2022 04/26/2022 04/26/2022 6:47 AM CDT Rule Out COVID-19 05/17/2022 05/17/2022 05/17/2022 10:20 PM OPHTHALMOLOGY SURGICAL TECHNICIAN Rule Out COVID-19 06/09/2022 06/09/2022 06/09/2022 9:35 AM OPHTHALMOLOGY SURGICAL TECHNICIAN COVID-19 06/09/2022 06/09/2022 06/30/2022 11:4 1 PM OPHTHALMOLOGY SURGICAL TECHNICIAN Rule Out COVID-19 11/10/2022 11/10/2022 11/11/2022 12:17 PM CDT Rule Out COVID-19 03/07/2023 03/07/2023 03/07/2023 1:20 PM CDT Rule Out COVID-19 12/26/2023 12/26/2023 12/26/2023 9:50 AM CDT Assessment Noted Time PHQ-9 Depression Total Score: 9 06/04/20 20 10:35 AM OPHTHALMOLOGY SURGICAL TECHNICIAN documented as of this encounter Care Teams Billet Driller Relationship Specialty Start Date End Date Marija Edgar APRN CNP [id number] [address] [id number] PCP - General Nurse Practitioner 04/30/20 04/14/23 Esha Grimm PA-C [address] [place] [phone] PCP - General Family Medicine 05/04/23 Lita Oseguera Personal Advocate & Liaison (PAL) 02/28/20 03/27/23 Rakesh Cid PA-C [address] [address] [address] Assigned PCP 03/02/20 06/07/20 Chanelle Mccann APRN CNM [address] [place] [address] [address] [place] [address] Assigned OBGYN Provider 05/02/2005/09 Lesley Moody, W Community Health Worker 05/30/2005/12 Kyara De La Fuente, RN Specialty Barrel Builder Neurology 06/04/20 03/05/21 Marija Edgar APRN ASSEMBLER CARDS AND ANNOUNCEMENTS [address] [place] [address] Assigned PCP 06/08/20 04/29/23 Mynor Broussard MD [address] [facility] 500 [place] [address] Assigned Surgical Provider 06/01/20 11/28/21 Keisha Dotson MD [address] [place] [address] Assigned Neuroscience Provider 06/04/20 04/01/23 Mary Mejia Financial Resource Worker 08/07/20 08/21/20 Stacey Briones, [facility] Lead Barrel Builder Primary Care - CC 08/11/2012/30 Lesley Moody, W Community Health Worker 08/11/2010/01 Mary Mejia Financial Resource Worker 09/02/20 10/06/20 Lita Oseguera Personal Advocate & Liaison (PAL) Family Medicine 09/10/20 09/21/20 Galo Burrell MD Assigned Heart and Vascular Provider 10/05/20 04/02/22 Cristina Wood Financial Resource Worker 10/07/20 10/14/20 Lesley Modoy, [facility] Community Health Worker 10/23/2012/30 Meredith Bdeoya Financial Resource Worker 10/23/20 11/23/20 Cristina Wood Financial Resource Worker 02/09/21 02/09/21 Diana Desir, [facility] [address] [place], [place] [phone] Pharmacist Pharmacist 04/17/21 Rain Galaviz PA-C [address] [place] [address] [address] [place], [place] [phone] Physician Desk Officer Dermatology 04/28/21 Summer Lara MD [address] [place], [place] [id number] Assigned OBGYN Provider 05/10/2105/23 Summer Lara MD [address] [place] [address] Assigned OBGYN Provider 05/31/21 2 Summer Lara MD [address] [place], [place] 258884 Assigned OBGYN Provider 05/24/2105/30 Tavia Wyatt MD [address] [place] [address] Dermatology 07/14/21 Johnny Murillo MD [address] [place] [address] Assigned Musculoskeletal Provider 08/30/21 03/17/22 Erica Farrell APRN ASSEMBLER CARDS [employer] ANNOUNCEMENTS [address] [facility] [address] [place] [address] Nurse Practitioner Cardiovascular Disease 09/09/21 Teresita Bean, [facility] [address] [place] [phone] Pharmacist Pharmacist 09/24/21 09/29/21 Tavia Wyatt MD Assigned Surgical Provider 11/29/21 05/07/22 Diana Desir, [facility] [address] [place] [address] Assigned MTM Pharmacist 01/02/22 Rich Barrett MD [address] [facility] [address] [place], [place] [address] Physician Ophthalmology 01/21/22 Neil Kent MD [address] [place] [address] Dermatology 02/24/22 Roney Story DPM [address] [facility] [address] [place], [place] [id number] Assigned Musculoskeletal Provider 03/20/22 08/13/22 Erica Farrell APRN [employer]SEM[employer] ANNOUNCEMENTS [address] [place] [address] Assigned Heart and Vascular Provider 04/03/22 04/16/22 Diana Desir, [facility] [address] [place] [address] Assigned MTM Pharmacist 04/07/22 Jelena David OD [address] [facility] [place] [address] Assigned Surgical Provider 05/08/22 10/08/22 Galo Burrell MD Assigned Heart and Vascular Provider 04/17/22 06/11/22 Livan Sharif MD [address] [place] 240[address] Cardiovascular Disease 05/14/22 Livan Sharif MD [address] [place] [address] Assigned Heart and Vascular Provider 06/12/22 07/23/22 Catherine Cm MD [address] [place] [address] Cardiovascular Disease 07/21/22 Valery Veronica PA-C [address] [place], [place] [address] Physician Desk Officer Dermatology 07/21/22 Catherine Cm MD [address] [place] [address] Assigned Heart and Vascular Provider 07/24/22 11/05/22 Johnny Murillo MD [address] [place] [address] Assigned Musculoskeletal Provider 08/14/22 10/08/22 Brea Quinn APRN ASSEMBLER [employer] ANNOUNCEMENTS [address] [place], [place] [address] Nurse Practitioner Dermatology 09/21/22 Brea Quinn APRN ASSEMBLER CARDS AND ANNOUNCEMENTS [address] [place], [place] [address] Assigned Surgical Provider 10/09/22 [place] [address] [facility] [address] [place], [place] [address] Assigned Musculoskeletal Provider 10/09/22 Livan Sharif MD [address], [facility] [address] [place] [address] Assigned Heart and Vascular Provider 11/06/22 11/12/22 Catherine Cm MD [address] [facility] [address] [place], [place] [address] Assigned Heart and Vascular Provider 11/13/22 05/27/23 Sydnie Martinez RN Personal Advocate & Liaison (PAL) Family Medicine 03/28/23 07/31/23 Alfonos Renteria MD [address] [facility] [address] [place] [address] Assigned Neuroscience Provider 04/02/23 Cheng Todd PA-C [address] [place] [address] Assigned PCP 04/30/23 07/15/23 Radha Lomeli APRN ASSEMBLER CARDS AND ANNOUNCEMENTS [address] [facility] [address] [place] [address] Assigned Heart and Vascular Provider 05/28/23 Jelena David OD [address] [facility] [place] [address] MD Ophthalmology 06/15/23 Pao Joseph, VJ Personal Advocate & Liaison (PAL) Nurse 08/01/23 11/07/23 Esha Grimm PA-C [address] [place] [phone] Assigned PCP 07/16/23 Valery Veronica PA-C [address] [place] [address]13395 Physician Desk Officer Dermatology 09/19/23 Rey Tay MD [address] [place] [address] Gastroenterology 09/20/23 Rocky Zepeda DO [address] [place] [address] 347385 Physician Gastroenterology 09/20/23 Philip Dumont MD [address] [place] [address] Physician Ophthalmology 09/22/23 Meredith Carrera PA-C [address] [place] [address] Assigned Gastroenterology Provider 11/01/23 Neil Kent MD [address] [address] Dermatology 11/02/23 [place] [address] [place] [address] Neurological Surgery 12/26/23 documented as of this encounter
--- OUTSIDE RECORDS SUMMARY | 2024-02-12 05:56 | XMS_ITS ---
Author Organization [facility] Address [address] [place] [address] Care Team Providers Care Chair Springer Name Role Phone ThangKendrickDiana T [facility] Unavailable [phone] Rain Galaviz-C Unavailable Tavia Wyatt MD Unavailable Unavailable Erica Farrell APRN LABOR UTILIZATION SUPERINTENDENT Unavailable Rich Barrett MD Unavailable Neil Kent MD Unavailable Diana Desir [facility] Unavailable [phone] Livan Sharif MD Unavailable Catherine Cm MD Unavailable + Valery Veronica-C Unavailable [phone] Brea Quinn FIELD STAFF MANAGER LABOR UTILIZATION SUPERINTENDENT Unavailable Brea Quinn FIELD STAFF MANAGER LABOR UTILIZATION SUPERINTENDENT Unavailable [phone] Jose Francisco Johnson MD Unavailable Alfonso Renteria MD Unavailable + [phone] Esha Grimm PA-C Primary Care Provider [phone] Radha Lomeli FIELD STAFF MANAGER LABOR UTILIZATION SUPERINTENDENT Unavailable Jelena David OD Unavailable Esha Grimm PA-C Unavailable [phone] Valery Veronica PA-C Unavailable Rey Tay MD Unavailable Rocky Zepeda DO Unavailable Philip Dumont MD Unavailable Meredith Carrera PA-C Unavailable Neil Kent MD Unavailable Juan Pablo Emmanuel MD Unavailable [phone] Primary Care Care Coordination Status:Declined (Declined) Start date:12/27/2023 End date:12/27/2023 Decline reason:Not interested Continued Care and Services Coordination
--- NOTE | 2024-02-12 06:25 | ED.CHESTPAIN ---
HPI - Chest Pain General Chief Complaint: Chest Pain Stated Complaint: Chest pain Time Seen by Provider: 02/12/24 04:58 Source: patient Mode of arrival: ambulatory Limitations: no limitations History of Present Illness HPI narrative: Patient is a 23-year-old female presenting to the emergency department for chest pain. States the symptoms have been shortly prior to arrive. But does states when chest pressure with the chest pain started she began to shake like it was a seizure but she did not lose consciousness. She has a history of seizures and epilepsy. States she has not had a seizure in a long time and previously the having grand mal seizures. Was eventually taken off her antiseizure medication by her neurologist because she was on such a small dose. Also has a history of SVT which she had ablation 2 years ago at self there for. States she is still having some chest pressure. Has had this chest pressure before but has not had this she shaking before. She is also having some numbness at that time which has since resolved. Is no longer feeling like her heart is racing. Denies fevers, chills, weakness, numbness, shortness of breath, abdominal pain, diarrhea, constipation. No history of blood clots. Is currently having a hormonal control IUD. Related Data Home Medications ?Medication ?Instructions ?Recorded ?Confirmed omeprazole 40 mg capsule,delayed 40 mg PO DAILY 04/28/22 10/28/23 release lorazepam 0.5 mg tablet 0.5 mg PO DAILY PRN anxiety 03/18/23 10/28/23 metoprolol succinate 25 mg 12.5 mg PO DAILY 10/15/23 10/28/23 tablet,extended release 24 hr paroxetine HCl 40 mg tablet 40 mg PO QAM 10/15/23 10/28/23 Previous Rx's ?Medication ?Instructions ?Recorded famotidine 40 mg tablet 40 mg PO DAILY #30 tabs 10/28/23 sucralfate 1 gram tablet (Carafate) 1 g PO BID #60 tabs 10/28/23 Allergies Allergy/AdvReac Type Severity Reaction Status Date / Time vancomycin Allergy Verified 10/28/23 13:54 Review of Systems Status of ROS Reports: 10 or more systems reviewed and unremarkable except as noted in History and below [facility] Medical History SVT (supraventricular tachycardia) ?I47.10 - Supraventricular tachycardia, unspecified (ICD-10) Social History Smoking Status: Former smoker What tobacco products do you use: cigarettes Smoking quit date/years: <= 15 years ago Do you use any of these nicotine containing products: None and Vaping Products Second hand tobacco smoke exposure: No How often do you have a drink containing alcohol: monthly or less How often do you have six or more drinks on one occasion: Never AUDIT-C Alcohol total score: 1 Non-prescribed substance use: denies use service: No Exam Narrative Exam Narrative: Const: Well-nourished, Well-developed, in mild distress Eyes: PERRL, no conjunctival injection, and symmetrical lids HENT: Atraumatic external nose and ears. Moist mucous membranes. Neck: Symmetric, trachea midline, No thyromegaly. CVS: RRR, No murmurs or gallops. Peripheral pulses 2+ and equal in all extremities RESP: Unlabored respiratory effort. Clear to auscultation bilaterally. GI: Nontender/Nondistended, No rebound or guarding. MSK:Extremities w/o deformity, Normal Active ROM Skin: Warm, Dry. No rashes or lesions. Neuro: Normal Muscle tone, No focal neurological deficits. Psych: Awake, Alert, & Oriented x3. Appropriate mood and affect. Const Vital Signs, click to edit/add: Vital Signs - 24 hr 02/12/24 04:56 02/12/24 05:11 02/12/24 05:12 Temperature 98.3 F Pulse Rate 81 73 Pulse Rate [Pulse Oximeter] 85 Respiratory Rate 16 16 Blood Pressure 120/62 Blood Pressure [Right Upper Arm] 120/73 Pulse Oximetry 99 100 100 Oxygen Delivery Method Room Air 02/12/24 05:15 02/12/24 05:30 02/12/24 05:45 Temperature Pulse Rate 76 77 71 Pulse Rate [Pulse Oximeter] Respiratory Rate Blood Pressure Blood Pressure [Right Upper Arm] Pulse Oximetry 100 99 100 Oxygen Delivery Method Course Vital Signs Vital signs: Initial Vital Signs Temperature 98.3 F 02/12/24 04:56 Temperature Source Temporal Artery Scan 02/12/24 04:56 Pulse Rate 85 02/12/24 04:56 Respiratory Rate 16 02/12/24 04:56 Blood Pressure 120/73 02/12/24 04:56 Blood Pressure Mean 88 02/12/24 04:56 Blood Pressure Position Supine 02/12/24 04:56 Pulse Oximetry 99 02/12/24 04:56 Oxygen Delivery Method Room Air 02/12/24 04:56 Vital Signs Temperature 98.3 F 02/12/24 04:56 Pulse Rate 85 02/12/24 04:56 Respiratory Rate 16 02/12/24 04:56 Blood Pressure 120/73 02/12/24 04:56 Pulse Oximetry 99 02/12/24 04:56 Oxygen Delivery Method Room Air 02/12/24 04:56 Temperature 98.3 F 02/12/24 04:56 Pulse Rate 71 02/12/24 05:45 Respiratory Rate 16 02/12/24 05:12 Blood Pressure 120/62 02/12/24 05:12 Pulse Oximetry 100 02/12/24 05:45 Oxygen Delivery Method Room Air 02/12/24 04:56 MDM - Chest Pain MDM Narrative Medical decision making narrative: Patient is a 23-year-old female presenting for chest pressure. Chest x-ray ordered to look for signs of pneumonia or pneumothorax. D-dimer ordered to look for signs of a pulmonary embolism. EKG and troponin ordered to look for signs of ACS. Also ordered a CBC and BMP along with a magnesium. Am not sure what caused this episode of shaking that she describes as being similar to a seizure but considering she was conscious for all of it does not seem like it is a seizure. Could be electrolyte abnormalities which we will see with the lab work. Did not believe it requires head imaging at this time. Nine Lab work all returned showing no concerning abnormalities. Patient is otherwise stable at this time. I do not believe a repeat troponin is necessary. She is feeling well. I am not sure what causes her symptoms but I do not see any emergent issues. She is safe for discharge. She is agreeable to this plan. Lab Data Labs: Lab Results 02/12/24 02/12/24 Range/Units 05:19 05:31 WBC 5.81 (4.50-11.00) K/uL RBC 4.69 (4.00-5.20) m/uL Hgb 12.2 (12.0-16.0) gm/dL Hct 38.4 (33.0-51.0) % MCV 82 (80-100) fL MCH 26 (26-34) pg MCHC 32 (32-36) gm/dL RDW Coeff of Naina 12.4 (11.5-15.5) % Plt Count 231 (140-440) K/uL Neut % (Auto) 47.2 (42.0-72.0) % Lymph % (Auto) 38.2 (20-44) % [place] % (Auto) 7.6 (0.0-11.0) % Eos % (Auto) 6.5 (0.0-7.0) % Baso % (Auto) 0.3 (0.0-3.0) % Neut # (Auto) 2.74 (1.7-7.0) K/uL Lymph # (Auto) 2.22 (0.90-2.90) K/uL [place] # (Auto) 0.40 (0.00-0.90) K/UL Eos # (Auto) 0.38 (0.00-0.50) K/uL Baso # (Auto) 0.02 (0.00-0.30) K/uL Abs Immat Gran (auto) 0.01 (0.00-0.30) K/uL Imm/Tot Granulo (auto) 0.2 % D-Dimer Quant (PE/DVT) < 0.27 (0.00-0.50) ug/ml Sodium 140 (135-149) mmol/L Potassium 3.8 (3.6-5.1) mmol/L Chloride 104 (96-114) mmol/L Carbon Dioxide 27 (20-32) mmol/L Anion Gap 9 (7-15) mEq/L BUN 13 (5-24) mg/dL Creatinine 0.6 (0.5-1.5) mg/dL Estimated Creat Clear 136.51 Estimated GFR 129 ml/min Glucose 96 (60-115) mg/dL Calcium 9.5 (8.4-10.6) mg/dL Magnesium 2.0 (1.5-2.6) mg/dL Urine Color Yellow (Yellow) Urine Appearance Clear (Clear) Urine pH 7.0 (5.0-8.5) Ur Specific [place] 1.015 (1.000-1.030) Urine Protein Negative (Negative) Urine Glucose (UA) Negative (Negative) Urine Ketones Negative (Negative) Urine Blood Negative (Negative) Urine Nitrite Negative (Negative) Urine Bilirubin Negative (Negative) Urine Urobilinogen 0.2 (0.2-1.0) Ur Leukocyte Esterase Negative (Negative) Urine RBC 0-2 (0-2) Urine WBC 0-2 (0-5) Ur Squamous Epith Cells None (None-Few) Urine Bacteria None (None) POC Troponin I 0.00 L (0.01-0.04) ng/ml ECG Data Attestation: I personally reviewed and interpreted this ECG as follows: Prior ECG tracings: available for review Interpretation: Normal sinus rhythm with a rate of 88 beats per minute, normal intervals, normal axis, no ST or T-wave abnormalities. Appears similar previous EKG on file Discharge Plan Discharge Clinical Impression: Atypical chest pain Patient Disposition: Home, Self-Care Condition: Stable Instructions: Noncardiac Chest Pain (ED) Additional Instructions: Take Tylenol and ibuprofen for pain. Return to emergency department for any new or worsening symptoms. Prescriptions: No Action lorazepam 0.5 mg tablet 0.5 mg PO DAILY PRN (Reason: anxiety) famotidine 40 mg tablet 40 mg PO DAILY Qty: 30 0RF sucralfate [Carafate] 1 gram tablet 1 g PO BID Qty: 60 2RF omeprazole 40 mg capsule,delayed release(DR/EC) 40 mg PO DAILY Patient Comments: TAKE ONE CAPSULE BY MOUTH EVERY DAY . metoprolol succinate 25 mg tablet extended release 24 hr 12.5 mg PO DAILY paroxetine HCl 40 mg tablet 40 mg PO QAM Follow Up/Referrals: Provider,Not a Local [Primary Care Provider] - Stand Alone Forms: [employer]ber[employer] Info Instructions
[2024-02-12 06:44] LABS: Ur HCG Qualitative* Negative (Negative)
== END 2024-02-12 06:57 | disposition home or self-care (01) ==
PROVIDERS: Emergency Provider Student in an Organized Health Care Education/Training Program
DX: R07.89 Other chest pain (principal)
CPT/HCPCS: 36415; 71046; 80048; 81001; 81025; 83735; 84484; 85025; 85379; 93005; 99283; 99284; 99285

== ENCOUNTER 2024-03-12 18:30 | Emergency (ER) | payer MEDICAID, SELFPAY ==
[2024-03-12 18:48] VITALS: BP 104/65; PULSE 76; RESP 14; TEMP 36.6; O2SAT 97; BMI 30.7
--- NOTE | 2024-03-12 19:03 | CRLHL7_ITS ---
For Patients: As a result of the Cures Act, medical imaging exams and procedure reports are released immediately into your electronic medical record. You may view this report before your referring provider. If you have questions, please contact your health care provider. INDICATION: Shortness of breath TECHNIQUE: Chest radiograph 2 views COMPARISON: 02/12/2024 FINDINGS: Mediastinum: The mediastinum is normal in appearance. The heart silhouette is normal in size and morphology. Lung: Both lungs are unremarkable in appearance. No sign of pleural effusion seen. No pneumothorax is identified. Bone and Soft tissue: Unremarkable for age. IMPRESSION: 1. No acute cardiopulmonary disease is seen. Dictated by: Valentin Garcia MD @ 03/12/2024 19:20:59 (Electronically Signed)
--- OUTSIDE RECORDS SUMMARY | 2024-03-12 19:28 | XMS_ITS | Clinical Summary ---
Author Organization [facility] Address [address] [place] [address] Phone Care Team Providers Care Water Quality Manager Name Role Phone Unavailable Primary Care Provider [...]
--- OUTSIDE RECORDS SUMMARY | 2024-03-12 19:28 | XMS_ITS | Clinical Summary ---
Author Organization [facility] Address [place], [place] [address] Care Team Providers Care Public Works Commissioner Name Role Phone Clinic, No Pcp Or Primary Care Provider Unavaila ble Allergies No known active allergies Medications Medication Sig Dispensed Refills Start Date End Date Status biotin-silicon qmvp-H-lrxiiivx 3,000 mcg -100 mg-50 mg TbER Take [...] Comments Blood Pressure 124/78 08/31/2018 11:46 AM ORACLE FINANCIALS CONSULTANT Pulse 78 08/31/2018 11:46 AM ORACLE FINANCIALS CONSULTANT Temperature 37.1 ??C (98.8 ??F) 11/01/2017 5:26 PM CD T Respiratory Rate 16 11/01/2017 5:26 PM CDT Oxygen Saturation 96% 11/01/2017 5:26 PM CDT Inhaled Oxygen Concentration - - Weight 89.3 kg (196 lb 14.4 oz) 019 11:46 AM [employer]ACLE FIN[employer]CIALS CONSULTANT Height 166.5 cm (5' 5.55) 08/31/2018 1 1:46 AM ORACLE FINANCIALS CONSULTANT Body Mass Index 32.22 08/31/2018 11:46 AM ORACLE FINANCIALS CONSULTANT Plan of Treatment Health Maintenance Due Date [...] 21-65 2021 COVID-19 vaccine series (2022- season) 2024 Influenza for age 9-49 03/11/2024 Pneumococcal series for age 6-64 Aged Out No longer eligible based on patient's age to complete this topic Care Teams Public Works Commissioner Relationship Specialty Start Date End Date Clinic, No Pcp Or . PCP - General 08/12/17
--- OUTSIDE RECORDS SUMMARY | 2024-03-12 19:29 | XMS_ITS | Encounter Summary ---
Author Organization [facility] Address [address] [place] [address] Care Team Providers Care Water Safety Teacher Name Role Phone Thang Diana [place] [facility] Unavailable Rain Galaviz PA-C Unavailable Tavia Wyatt MD Unavailable Unavailable Erica Farrell APRN JUNIOR TECHNICAL WRITER Unavailable Rich Barrett MD Unavailable Neil Kent MD Unavailable Dinaa Desir Stanislav [facility] Unavailable [phone] Livan Sharif MD Unavailable Catherine Cm MD Unavailable + Valery Veronica PA-C Unavailable [phone] Brea Quinn PBX TEACHER JUNIOR TECHNICAL WRITER Unavailable Brea Quinn PBX TEACHER JUNIOR TECHNICAL WRITER Unavailable Jose Francisco Johnson MD Unavailable Alfonso Renteria MD Unavailable + [phone] Esha Grimm PA-C Primary Care Provider Radha Lomeli PBX TEACHER JUNIOR TECHNICAL WRITER Unavailable [phone] Jelena David OD Unavailable [phone] Esha Girmm PA-C Unavailable [phone] Valery Veronica PA-C Unavailable [phone] Rey Tay MD Unavailable Rocky Zepeda DO Unavailable Philip Dumont MD Unavailable [phone] Meredith Carrera PA-C Unavailable [phone] Neil Kent MD Unavailable Juan Pablo Emmanuel MD Unavailable [phone] Audrey Waite PA-C Unavailable [phone] Encounter Details Date Type Department Care Team (Latest Contact Info) Description 03/08/2024 Travel Social History Tobacco Use Types Packs/Day Years Used Date Smoking Tobacco: Former Cigarettes Q uit: 12/07/2019 Other Passive Smoke Exposure: Past Smokeless Tobacco: Current Comments:vaping Alcohol Use Standard Drinks/Week Comments Yes 0 [...] week 03/10/2023 How often do you attend [facility] or [facility] services? 1 to 4 times [...] Answer Date Recorded PHQ-2 Score 1 02/07/2024 [facility]ational Stress Questionnaire [...] exercise at this level? 30 min 03/10/2023 [place] Depression Scale Answer Date Recorded [place] Depression Score 5 01/14/2021 Last EPDS Self [...] Care Team (Late st Contact Info) Description 03/26/2024 11:20 AM CDT Office Visit [facility] [address] [facility] [address] [place] [address] Ebony Cid, PBX TEACHER [facility] [address] [place], [place] [address] 03/27/2024 11:00 AM CDT Office Visit [facility] [address] [facility] [address] [place] [phone] Jelena David, OD [address] [facility] [place] [address] 04/19/2024 2:45 PM CDT Office Visit [facility] [address] [place] [phone] Audrey Waite PA-C [address] [place] [address] [address]385, [facility] [address] [place], [place] [phone] 05/08/2024 1:30 PM CDT Office Visit [facility] [address] [place] [address] Lauren Claudio PA-C [address] [place] [address] Esha Grimm PA-C [address] [place] [address] 06/21/2024 2:00 PM SUPERVISOR ESTIMATOR AND DRAFTER Office Visit [facility] Neurology Clinics [facility] [address] [facility], [address] [place] [address] [place] [address] [place] [address] Johnny Penn MD [address] [place] [address] Scheduled Procedures Name Priority Associated Diagnoses Date/Ti de ESOPHAGOGASTRODUODENOSCOPY Eosinophilic esophagitis Esophageal dysphagia documented as of this encounter Visit Diagnoses Not on filedocumented in this encounter Additional Health Concerns Assessment Noted Time PHQ-9 Depression Total Score: 3 02/07/20 24 9:33 AM CDT documented as of this encounter Care Teams Water Safety Teacher Relationship Specialty Start Date End Date Esha Grimm PA-C [address] [place] [address] PCP - General Family Medicine 05/04/23 Diana Desir, [facility] [address] [place], [place] [phone] Pharmacist Pharmacist 04/17/21 Rain Galaviz PA-C [address] [place] [address] [address] [place] [address] Physician Regeneration Operator Dermatology 04/28/21 Tavia Wyatt MD [address] [place] [address] [address] [facility] [place] [address] Dermatology 07/14/21 Erica Farrell APRN JUNIOR TECHNICAL WRITER [address] [place] [address] Nurse Practitioner Cardiovascular Disease 09/09/21 Rich Barrett MD [address] [address] Physician Ophthalmology 01/21/22 Neil Kent MD [address] [place], [place] [phone] Dermatology 02/24/22 [facility] [address] [place], [place] [address] Assigned [place] Pharmacist 04/07/22 Livan Sharif MD [address] [place] [address] Cardiovascular Disease 05/14/22 Catherine Cm MD [address] [place] [address] Cardiovascular Disease 07/21/22 Valery Veronica, PA-C [address] [place] [address] Physician Regeneration Operator Dermatology 07/21/22 Brea Quinn APRN JUNIOR TECHNICAL WRITER [address] [place] [address] Nurse Practitioner Dermatology 09/21/22 Brea Quinn APRN JUNIOR TECHNICAL WRITER [address] [place] [address] Assigned Surgical Provider 10/09/22 [place] [address] [address] [facility] [address] [place] [address] Assigned Musculoskeletal Provider 10/09/22 Alfonso Renteria MD [address] [facility] [address] [place], [place] [address] Assigned Neuroscience Provider 04/02/23 Radha Lomeli APRN JUNIOR TECHNICAL WRITER [address] [facility] [address] [place] [address] Assigned Heart and Vascular Provider 05/28/23 Jelena David OD [address] [facility] [place] [address] Ophthalmology 06/15/23 Esha Grimm PA-C [address] [place] [address] Assigned PCP 07/16/23 Valery Veronica PA-C [address] [place] [address] Physician Regeneration Operator Dermatology 09/19/23 Rey Tay MD [address] [place] [address] MD Gastroenterology 09/20/23 Rocky Zepeda DO [address] [place] [address] Physician Gastroenterology 09/20/23 Philip Dumont MD [address] [place] [address] Physician Ophthalmology 09/22/23 Meredith Carrera PA-C [address] [place] [address] Assigned Gastroenterology Provider 11/01/23 Neil Kent MD [address] [address] Dermatology 11/02/23 [place] [address] [facility] [address] [place], [place] [address] Neurological Surgery 12/26/23 Audrey Waite PA-C [address] [place] [address] Physician Regeneration Operator Dermatology 02/28/24 documented as of this encounter
--- OUTSIDE RECORDS SUMMARY | 2024-03-12 19:29 | XMS_ITS | Referral Summary ---
Author Organization [facility] Address [address] [place] [address] Care Team Providers Care Volleyball Assembler Name Role Phone Thang Diana [place] [facility] Unavailable [phone] Rain Galaviz PA-C Unavailable Tavia Wyatt MD Unavailable Unavailable Erica Farrell CINDER DUMP CRANE OPERATOR HOME SALES SERVICE PROFESSIONAL Unavailable Rich Barrett MD Unavailable Neil Kent MD Unavailable Diana Desir [facility] Unavailable [phone] Livan Sharif MD Unavailable Catherine Cm MD Unavailable + Valery Veronica PA-C Unavailable [phone] Brea Quinn CINDER DUMP CRANE OPERATOR HOME SALES SERVICE PROFESSIONAL Unavailable Brea Quinn CINDER DUMP CRANE OPERATOR HOME SALES SERVICE PROFESSIONAL Unavailable Jose Francisco Johnson MD Unavailable Alfonso Renteria MD Unavailable + [phone] Esha Grimm PA-C Primary Care Provider Radha Lomeli CINDER DUMP CRANE OPERATOR HOME SALES SERVICE PROFESSIONAL Unavailable [phone] Jelena David OD Unavailable Alfa Esha M PA-C Unavailable [phone] Valery Veronica PA-C Unavailable Rey Tay MD Unavailable Duane Rocky DO Unavailable Philip Dumont MD Unavailable [phone] Meredith Carrera PA-C Unavailable Neil Kent MD Unavailable Juan Pablo Emmanuel MD Unavailable Audrey Waite PA-C Unavailable Encounters Date Type Department Care Team Description 03/08/2024 Travel 03/08/2024 11:00 AM CDT - 03/08/2024 11:59 PM CDT Hospital Encounter [facility] [address] [facility] [address] [place] [phone] Radha Lomeli APRN CNP SVT (supraventricular tachycardia) (H24) Discharge Disposition: Home or Self Care 03/07/[address] [facility] [address] [facility] [address] [place] [phone] Carley Myles RN 03/06/2024 Travel 03/06/2024 Alejandro Medical Advice [facility] Spine [facility] Neurosurgery [address] [place] [address] [address] [place] [phone] Ebony Cid APRN CNP 03/06/2024 3:00 PM CDT Office Visit [facility] [address] [facility] [address] [place] [phone] Radha Lomeli APRN CNP SVT (supraventricular tachycardia) (H24) (Primary Dx); Palpitations 03/05/2024 MyC Medical Advice [facility] [address] [phone] StoughtonRebecca de la rosa 03/05/2024 Telephone [facility] [address] [phone] None Procedure (Cancel/Reschedule) 03/05/2024 Telephone [facility] [place] [address] [facility] [address] [place] [phone] Radha Lomeli APRN HOME SALES SERVICE PROFESSIONAL Call Back (Heart monitor for 14 or 30 days ) 03/03/2024 Travel 03/01/[address] [phone] Esha Grimm PA-C Letter for School/Work 02/28/2024 MyC Medical Advice [facility] [address] [phone] Rain Burnette RN 02/28/2024 Telephone [facility] Endoscopy [address] [place] [address] Annabelle Wetzel, VJ Pt. Information/instruc tion (EGD ) 02/27/2024 MyC Medical Advice [facility] Spine [facility] Neurosurgery [address] [facility] 100 [place] [address] Ebony Cid APRN CNP 02/27/2024 Travel 02/27/2024 10:35 AM CDT Office Visit [facility] [place] [address] [place] [phone] Nicole Garcia PA-C Vagina, candidiasis (Primary Dx); Bacterial vaginosis; Nasal congestion 02/07/2024 Travel 02/07/2024 10:00 AM CDT Office Visit [address] [phone] Lauren Claudio PA-C Yeast infection of the vagina (Primary Dx); Bacterial vaginosis; Vaginal discharge; Screening examination for venereal disease; Chest tightness 02/06/2024 Telephone [facility] [address] [place] [phone] Esha Grimm PA-C Symptoms (VAGINAL SYMPTOMS THAT PATIENT WOULD LIKE TO GET LAB ORDERS FOR ) 02/01/2024 MyC Medical Advice [facility] Neurology [address] [phone] Macy Pinedo RN 01/26/2024 Travel 01/26/2024 12:50 PM CDT Therapy Visit [facility] Rehabilitation Services [address] [address] Ebony Cid APRN HOME SALES SERVICE PROFESSIONAL Rustam Medina, LAWANDA Chiari malformation type I (H); Neck pain 01/23/2024 Travel 01/23/2024 Telephone [facility] Sp[facility] Neurosurgery [address] [place] [address] [address] [place] [phone] Ebony Cid APRN HOME SALES SERVICE PROFESSIONAL 01/23/2024 10:00 AM CDT Office Visit [facility] Neurology [address] [phone] Juan Pablo Emmanuel MD Neck pain (Primary Dx); Paresthesia of arm; Chiari I malformation (H) 01/22/2024 Travel 01/16/[address] [phone] Esha Grimm PA-C 01/11/2024 Travel 01/11/2024 9:53 AM CDT - 01/11/2024 12:38 PM CDT Emergency [facility] [address] [place] [phone] Jeffrey Whalen MD Dyspnea, unspecified type Discharge Disposition: Left Without Being Seen 01/09/2024 Telephone [facility] Neurology [facility] - [address], [address] [place] [address] Juan Pablo Emamnuel MD Appointment 01/09/2024 Telephone [facility] Neurosurgery [address] [facility] [address] [place] [address] Ebony Cid APRN HOME SALES SERVICE PROFESSIONAL Results (Cervical and brain MRIs) 01/09/2024 Travel 01/06/2024 Telephone [facility] Neurology Clinics [facility] [address] [place] [address], [address] [place] [address] Juan Pablo Emmanuel MD Appointment 01/06/2024 10:53 AM CDT - 01/06/2024 11:59 PM CDT Hospital Encounter [facility] [address] [place] [address] Ebony Cid APRN HOME SALES SERVICE PROFESSIONAL Chiari malformation type I (H); Numbness and tingling of upper extremity; Abnormal finding on MRI of brain Discharge Disposition: Home or Self Care 01/05/2024 Travel 01/05/2024 1:40 PM CDT Office Visit [facility]surgery [address] [facility] [address] [place] [address] Ebony Cid APRN HOME SALES SERVICE PROFESSIONAL Abnormal finding on MRI of brain (Primary Dx); Chiari malformation type I (H); Numbness and tingling of upper extremity; Neck pain 01/02/2024 PRE VISIT [facility] Neuro[facility] [address] [phone] Juan Pablo Emmanuel MD Pre Visit Planning - 2 Attempts (Pre charting) 12/26/2023 Travel 12/26/2023 9:32 AM CDT - 12/26/2023 10:06 AM CDT Emergency [facility] [address] [place] [address] Chidi Kim MD Chest tightness Discharge Disposition: Home or Self Care 12/26/[address] [place] [address] Esha Grimm PA-C Same Day Appointment (sore throat, body aches, headaches couple days) 12/23/2023 Travel 12/21/2023 1:20 PM CDT Ancillary Procedure [facility] [address] [place] [phone] Helen Cortez APRN HOME SALES SERVICE PROFESSIONAL Chest tightness; SOB (shortness of breath) 12/21/2023 Telephone [facility] [address] [facility] [address] [place] [phone] Livan Sharif MD Call Back (Schedule appt tomorrow ) 12/21/2023 Travel 12/21/2023 12:40 PM CDT Office Visit [facility] [address] [phone] Helen Cortez APRN HOME SALES SERVICE PROFESSIONAL Vaginal odor (Primary Dx); Chest tightness; SOB (shortness of breath) from Last 3 Months Allergies Active Allergy [...] for 5 days 25 g 02/07/2024 02/12/2024 fluconazole (DIFLUCAN) 150 MG tabletIndications :Vagina, candidiasis Take 1 tablet (150 mg) by mouth every 3 days for 2 doses 2 tablet 02/27/2024 03/02/2024 metroNIDAZOLE (FLAGYL) 500 MG tabletIndications :Bacterial vaginosis Take 1 tablet (500 mg) by mouth 2 times daily for 7 days 14 tablet 02/27/2024 03/06/2024 Active Problems Patient Care Coordination No te [...] available in ED consider consultation with ED Sash Repairer. Relevant Medical History (at time Care Plan initiated): Seizures (on 500mg Keppra daily), SVT (on 12.5mg metoprolol daily), Anxiety and Depression Past imaging: CT: 3 in the 12 months prior to initiation of care plan. MRI: 0 in the 12 months prior to initiation of care plan. ED Ultrasound: 8 in the 12 months prior to initiation of care plan. Total [facility] ED visits in 12 months prior to initiation of Care Plan: 11 Total [facility] Hospital Admissions in 12 months prior to initiation of Care Plan: 0 (she has technically had 2 admissions due to related issues with OBGYN) Expected home rescue plan: Metoprolol 12.5mg PRN PCP: Marija Edgar APRN CNP - Family Medicine - [facility] Specialists: Dr. Galo Burrell - Cardiology - [facility] Cesar Dotson - Neurology - [facility] Epilepsy Care Care Coordination: Has worked with Community Health Worker in past - ARACELIS Parker, Clinical Care Coordination - [facility] ([place], [place] and [place]) - Follow up plan after an ED visit: Marija Edgar APRN CNP - Family Medicine - [facility] Initiated: 2020 Problem Noted Date Diagnosed Date Paroxysmal supraventricular tachycardia (H24) SVT (supraventricular tachycardia) (H24) 022 Encounter for pharmacogenetic testing 04/17/2021 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 JANENE (generalized anxiety disorder) 09/29/2020 Right ureteral stone 05/27/2020 Overview: Added automatically from request for surgery [id number] Left ureteral stone 05/27/2020 Overview: Added automatically from request for surgery [id number] Head ache 02/18/2020 Seizure 05/02/2019 Depressed 05/02/2019 [...] HPV Quadrivalent 03/01/2012,10/27/2011, 2 HepB, Unspecified 08/07/2001,03/28/2001,11/05/19 Hepatitis A Vac Ped/Adol-3 Dose 03/01/2012,08/10 Hepatitis B, Peds 08/07/2001,03/28/2001,11/05/19 Influenza (H1N1) 06/06/2009 Influenza Vaccine >6 months,quad, [...] Passive Smoke Exposure: Past Smokeless Tobacco: Current Tobacco Cessation:Ready to Q uit: Not Asked; Counseling Given: Not Answered Comments:vaping Alcohol Use Standard Drinks/Week Comments Yes [...] you attend chur ch or worship services? 1 to 4 times [...] Answer Date Recorded PHQ-2 Score 1 02/07/2024 [facility] - Occupational Stress Questionnaire Answer [...] exercise at this level? 30 min 03/10/2023 Denton Depression Scale Answer Date Recorded Denton Depression Score 5 01/14/2021 Last EPDS Self [...] Sign Reading Time Taken Comments Blood Pressure 114/78 03/06/2024 2:58 PM CDT Pulse 68 03/06/2024 2:58 PM CDT Temperature 36.7 ??C (98 ??F) 02/27/2024 10:45 AM CDT Respiratory Rate 16 02/27/2024 10:45 AM CDT Oxygen Saturation 100% 02/27/2024 10:45 AM CDT Inhaled Oxygen Concentration - - Weight 88 kg (194 lb) 03/06/2024 2:58 PM CDT Height 167.6 cm (5' 6) 03/06/2024 2:58 PM CDT Body Mass Index 31.31 03/06/2024 2:58 PM CDT Plan of Treatment Upcoming Encounters Date Type Department Care Team (Late st Contact Info) Description 03/26/2024 11:20 AM CDT Office Visit [facility]ine [facility] Neurosurgery [address] [facility] [address] [place] [address] Ebony Cid APRN HOME SALES SERVICE PROFESSIONAL [address] [place] [address] 03/27/2024 11:00 AM CDT [facility] [address] [facility] [address] [place] [phone] Jelena David, [place] [address] [facility] [place] [address] 04/19/2024 2:45 PM CDT Office Visit [facility] [address] [place] [phone] Audrey Waite PA-C [address] [facility] [address], [facility] 603 [place] [address] 05/08/2024 1:30 PM CDT Office Visit [facility] [address] [place] [phone] Lauren Claudio PA-C [address] [place], [place] [phone] Esha Grimm PA-C [address] [place] [address] 06/21/2024 2:00 PM ANGULAR JS DEVELOPER Office Visit [facility]rology [facility] - [place] [address] [facility], [address] [place] [phone] [place] [address] [place], [place] [address] Johnny Penn MD [address], [place] [address] Scheduled Procedures Name Priority Associated Diagnoses Date/Ti me ESOPHAGOGASTRODUODENOSCOPY Eosinophilic esophagitis Esophageal dysphagia Procedures Procedure Name Priority Date/Time Associated Diagnosis Comments ZIO PATCH 8-14 DAYS INTERPRETATION Routine 03/06/2024 3:19 PM CDT Palpitations WET PREPARATION Routine 02/27/2024 10:34 AM CDT Vagina, candidiasis UA MICROSCOPIC WITH REFLEX TO CULTURE Routine 02/27/2024 10:34 AM CDT Bacterial vaginosis UA MACROSCOPIC WITH REFLEX TO MICRO AND CULTURE Routine 02/27/2024 10:34 AM CDT Bacterial vaginosis WET PREPARATION Routine 02/07/2024 10:08 AM CDT [...] 12/21/2023 Chest tightness SOB (shortness of breath) GYNECOLOGIC CYTOLOGY Routine 09/22/2021 3:14 PM CDT Encounter for screening for cervical cancer from Last 3 Months or Most Recently Relevant to Health Maintenance Results * (ABNORMAL) UA Microscopic with Reflex to Culture (02/27/2024 10:34 AM CDT) Only the most recent of2 resultswithin the time period is included. Bacteria Urine Few(A) None Seen /HPF REINA 02/27/2024 10:54 AM CDT [facility] RBC Urine 0-2 0-2 /HPF /HPF REINA 02/27/2024 10:54 AM CDT [facility] WBC Urine 0-5 0-5 /HPF /HPF REINA 02/27/2024 10:54 AM CDT [facility] Squamous Epithelials Urine Few(A) None Seen /LPF REINA 02/27/2024 10:54 AM CDT [facility] Urine MID-STREAM URINE SPECIMEN / Unknown Non-blood Collection / Unknown 02/27/2024 10:34 AM CDT 02/27/2024 10:41 AM CDT Narrative [facility] - 02/27/2024 10:54 AM CDT Urine Culture not indicated Nicole Garcia PA-C LAB - URINE ORDERABL ES LABORATORY [facility] [place] [facility] [address] [facility] Lab (no room number, 1st floor of clinic) [place] [address], [facility] * (ABNORMAL) UA Macroscopic with reflex to Microscopic and Culture - Clinic Collect (02/27/2024 10:34AM CDT) Color Urine Yellow Colorless, Straw, Light Yellow, Yellow 02/27/2024 10:50 AM CDT LABORATORY Appearance Urine Clear Clear 02/27/20 10:50 AM CDT LABORATORY Glucose Urine Negative Negative mg/dL 02/27/2024 10:50 AM CDT LABORATORY Bilirubin Urine Negative Negative 10:50 AM CDT LABORATORY Ketones Urine Negative Negative mg/dL 02/27/2024 10:50 AM CDT LABORATORY Specific [place] Urine 1.020 1.003 - 1.035 02/27/2024 10:50 AM CDT LABORATORY Blood Urine Trace(A) Negative 02/27/2024 10:50 AM CDT LABORATORY pH Urine 7.0 5.0 - 7.0 02/27/2024 10:50 AM CDT LABORATORY Protein Albumin Urine Negative Negative mg/dL 02/27/2024 10:50 AM CDT LABORATORY Urobilinogen Urine 1.0 0.2, 1.0 E.U./dL 02/27/2024 10:50 AM CDT [facility] Nitrite Urine Negative Negative 02/27/2024 10:50 AM CDT [facility] Leukocyte Esterase Urine Negative Negative 02/27/2024 10:50 AM CDT LABORATORY Urine MID-STREAM URINE SPECIMEN / Unknown Non-blood Collection / Unknown 02/27/2024 10:34 AM CDT 02/27/2024 10:41 AM CDT Uro Jock PA-C LAB - URINE ORDERABL ES Performing Organization Address [facility]/ZIP Co de Phone Number LABORATORY [facility] Lab [address] [facility] Lab (no room number, 1st floor of [facility]) [address] * (ABNORMAL) Wet prep - lab collect (02/27/2024 10:34 AM CDT) Only the most recent of3 resultswithin the time period is included. Trichomonas Absent Absent REINA 02/27/2024 11:00 AM CDT [facility] Yeast Present(A) Absent REINA 02/27/2024 11:00 AM CDT [facility] Clue Cells Present(A) Absent REINA 02/27/2024 11:00 AM CDT LABORATORY WBCs/high power field 3+(A) None REINA 02/27/2024 11:00 AM CDT [facility] Swab VAGINAL STRUCTURE / Unknown Non-blood Collection / Unknown 02/27/2024 10:34 AM CDT 02/27/2024 10:41 AM CDT Uro Jock PA-C LAB - MICRO GENERAL ORDERABLES Performing Organization Address [facility] de Phone Number LABORATORY [facility] [address] [facility] Lab (no room number, 1st floor of [facility]) [address] * HIV Antigen Antibody Combo (02/07/2024 10:08 AM CDT) Only the most recent of2 resultswithin the time period is included. HIV Antigen Antibody Combo Nonreactive Nonreactive 02/07/2024 9:27 PM CDT [facility] Comment:Negative HIV-1 p24 [...] LAB - BLOOD ORDERA BLES [facility] [place] [facility] [address] [facility], [address] * Treponema Abs w Reflex to [...] ORDERA BLES SPECIALTY CORE/PROT/ENDO Specialty Core/Prot/Endo [address] [facility], Room [address] * Chlamydia trachomatis/Neisseria gonorrhoeae by PCR - Clinic Collect (02/07/2024 10:08 AM CDT) Only the most recent of2 resultswithin the time period is included. Chlamydia Trachomatis Negative Negative 02/07/2024 6:31 PM CDT [facility] Comment: Negative for C. trachomatis rRNA by disaster response director mediated amplification. A negative result by disaster response director mediated amplification does not preclude the presence of infection because results are dependent on proper and adequate collection, absence of inhibitors and sufficient rRNA to be detected. Neisseria gonorrhoeae Negative Negative 02/07/2024 6:31 PM CDT [facility] Comment:Negative for N. gono rrhoeae rRNA by disaster response director mediated amplification. A negative result by disaster response director mediated amplification does not preclude the presence of C. trachomatis infection because results are dependent on proper and adequate collection, absence of inhibitors and sufficient rRNA to be detected. Swab VAGINAL STRUCTURE / Unknown Non-blood Collection / Unknown 02/07/2024 10:08 AM CDT 02/07/2024 10:13 AM CDT Lauren Claudio PA-C LAB - MICRO GENERA L ORDERABLES [facility] Inf. Diseases Diag. Lab [address] [facility], [address] [place] [address], [facility] * D dimer, quantitative (02/07/2024 10:08 AM [...] LAB - BLOOD ORDERA BLES OX LABORATORY [facility] [place] [facility] [address] Lab (no room number, 1st floor of clinic) [place] [address], [facility] [phone] * Basic metabolic panel (Ca, Cl, CO2, [...] PM CDT [facility] Comment:eGFR calculated usin 2020 CKD-EPI equation. Calcium 9.3 8.8 - [...] LAB - BLOOD ORDERA BLES [facility] [place] [facility] [address] [facility], [address] [place] [address] * HCG QUALitative (blood) (01/11/2024 11:10 AM CDT) hCG Serum Qualitative Negative Negative REINA 01/11/2024 11:57 AM CDT [facility] Comment:This test is for scr eening purposes. Results should be interpreted along with the clinical picture. Confirmation testing is available if warranted by ordering [id number], HCG Quantitative . Blood STRUCTURE OF RIGHT HAND / Unknown Venipuncture / Unknown 01/11/2024 11:10 AM CDT 01/11/2024 11:15 AM CDT Jeffrey Whalen MD LAB - BLOOD DONYA HERRERA [facility] Organization Address City/State/ZIP Co de Phone Number RH LABORATORY [facility] Lab [address] Lab (1st floor, no room number) [place] [address] * (ABNORMAL) CBC with platelets and [...] Whalen MD LAB - BLOOD DONYA HERRERA [facility] Organization Address City/State/ZIP Co de Phone Number LABORATORY [facility] Care Lab [address] [facility] Lab (1st floor, no room number) [place] [address], [facility] * Troponin T, High Sensitivity (01/11/2024 10:30 AM CDT) [facility] Troponin T, High Sensitivity <6 <=14 ng/L [...] Jeffrey Whalen MD LAB - BLOOD ORDE SHARON [facility] Acute Care Lab [address] Lab (1st floor, no room number) [place] [address] * EKG 12 lead (01/11/2024 9:55 AM CDT) Only the most recent of2 resultswithin the time period is included. Systolic Blood Pressure mmHg RADIOLOGY RESULTS Diastolic Blood Pressure mmHg RADIOLOGY RESULTS Ventricular Rate 60 BPM RAD IOLOGY RESULTS Atrial Rate 60 BPM RADIOLOG Y RESULTS [place] Interval 146 ms RADIOLOG Y RESULTS QRS Duration 84 ms RADIOLO GY RESULTS QT 382 ms RADIOLOGY RESULTS QTc 382 ms RADIOLOGY RESULTS P [place] 61 degrees RADIOLOGY RESULTS R AXIS 70 degrees RADIOLOGY RESULTS T [place] 67 degrees RADIOLOGY RESULTS Interpretation ECG Sinus rhythm Normal ECG When compared with ECG of 26-DEC-2023 09:56, No significant change was found Unconfirmed report - interpretation of this ECG is computer generated - see medical record for final interpretation Confirmed by - EMERGENCY ROOM, PHYSICIAN ([id number]), food editor Saleem Gomez ([id number]) on 01/11/2024 12:31:03 PM RADIOLOGY RESULTS 01/11/2024 [...] MR BRAIN W/O and W CONTRAST LOCATION: [facility] DATE: 01/06/2024 INDICATION: numbness tingling both [...] MR BRAIN W/O and W CONTRAST LOCATION: [facility] DATE: 01/06/2024 INDICATION: numbness tingling both arms and chest, torso. Recheck [id number] and hx Chiari and right parietal abnormality, [...] at the right lateral aspect of the [id number] body. Ebony Cid APRN HOME SALES SERVICE PROFESSIONAL IMG MRI ORDERABLES * MR Brain w/o [...] MR BRAIN W/O and W CONTRAST LOCATION: [facility] DATE: 01/06/2024 INDICATION: numbness tingling both [...] MR BRAIN W/O and W CONTRAST LOCATION: [facility] DATE: 01/06/2024 INDICATION: numbness tingling both arms and chest, torso. Recheck [id number] and hx Chiari and right parietal abnormality, [...] at the right lateral aspect of the [id number] body. Ebony Cid CINDER DUMP CRANE OPERATOR HOME SALES SERVICE PROFESSIONAL IMG MRI ORDERABLES * Symptomatic Influenza A/B, [...] the Xpert Xpress CoV2/Flu/RSV Assay on the [employer] GeneXpert Instrument. This test should be ordered [...] management. This test was validated by the [facility]. These laboratories are certified under the Clinical Laboratory Improvement Amendments of 1988 (CLIA-88) as qualified to perform high complexity laboratory testing. Chidi Kim MD LAB - MICRO GENER AL ORDERABLES [facility] Lab [address] [facility] Lab (1st floor, no room number) [place] [address] * Group A Streptococcus PCR Throat Swab (12/26/2023 9:02 AM CDT) [facility] Group A strep by PCR Not Detected Not Detected 12/26/2023 9:37 AM CDT LABORATORY Swab STRUCTURE OF ANTERIOR PORTION OF NECK / Unknown Non-blood Collection / Unknown 12/26/2023 9:02 AM CDT 12/26/2023 9:09 AM CDT [facility] LABORATORY - 12/26/2023 9:37 AM CDT The Xpert Xpress Strep A test, performed on the [employer], is a rapid, qualitative in vitro [...] MD LAB - MICRO GENER AL ORDERABLES [facility] [address] [facility] Lab (1st floor, no room number) [place] [address] * Hepatitis C antibody (12/21/2023 1:39 PM CDT) [facility] Hepatitis C Antibody Nonreactive Nonreactive [...] 1:39 PM CDT 12/21/2023 1:39 PM CDT Helen Cortez CINDER DUMP CRANE OPERATOR HOME SALES SERVICE PROFESSIONAL LAB - BLOOD ORDERABL ES [facility] [place] [facility] [address] [facility], Room [address] [place] [id number] * Comprehensive metabolic panel (12/21/2023 1:39 PM CDT) Pathologist [facility] Sodium 138 135 - 145 mmol/L 12/21/2023 [...] 1:39 PM CDT 12/21/2023 1:39 PM CDT Helen Cortez ARLENE [employer] PROFESSIONAL LAB - BLOOD ORDERABL ES RH LABORATORY [facility] Lab [address] [facility] Lab (1st floor, no room number) [place] [address], [facility] * XR Chest 2 Views [...] Pulmonary vasculature is unremarkable. CHIDI SCHWARTZ MD Helen Cortez APRN HOME SALES SERVICE PROFESSIONAL IMG DIAGNOSTIC IMAGI NG ORDERABLES * UA with Microscopic reflex to Culture [...] 12/21/2023 12:58 PM CDT LV LABORATORY Specific [place] Urine 1.010 1.003 - 1.035 12/21/2023 12:58 [...] 12:44 PM CDT 12/21/2023 12:54 PM CDT Helen Cortez APRN, CNP LAB - URINE ORDERABL ES LV [facility] [place] [facility] [address] [facility] Lab (no room number, 1st floor of clinic) [place] [address], [facility] [phone] * EKG 12-lead complete w/read - Clinics (12/21/2023) Helen Cortez APRN HOME SALES SERVICE PROFESSIONAL ECG ORDERABLES * Pap screen reflex to HPV [...] component of this testing was completed at [facility] 09/25/2021 10:27 AM CDT SPECIALTY LABS Brushing CERVIX UTERI STRUCTURE / Unknown 09/22/2021 3:14 PM CDT 09/22/2021 3:48 PM CDT Marija Edgar APRN HOME SALES SERVICE PROFESSIONAL LAB - [place] [facility] [address] [facility], [address] [place] [address], [place] [phone] from Last 3 Months or Most Recently Relevant to Health Maintenance Advance Directives For more information, please contact: [phone] * Full Code (Latest Code Status on File) Date Activated Date Inactivated Comments 01/14/2021 7:36 AM 01/15/2021 6:05 PM All basic and advanced life-sustaining interventions are performed as appropriate Question Answer Comments Code status determined by: Discussion with corona dewitt/ legal decision maker Care Teams Volleyball Assembler Relationship Specialty Start Date End Date Esha Grimm PA-C [address] [place] [phone] PCP - General Family Medicine 05/04/23 Diana Desir, [facility] [address] [place] [address] Pharmacist Pharmacist 04/17/21 Rain Galaviz PA-C [address] [place] [address] [address] [place] [address] Physician [employer] Principal Dermatology 04/28/21 Tavia Wyatt MD [address] [place] [address] [address] [facility] [place] [address] Dermatology 07/14/21 Erica Farrell APRN HOME SALES SERVICE PROFESSIONAL [address] [facility] [address] [place], [place] [address] Nurse Practitioner Cardiovascular Disease 09/09/21 Rich Barrett MD [address] [facility] [address] [place], [place] [phone] Physician Ophthalmology 01/21/22 Neil Kent MD [address] [place], [place] [id number] Dermatology 02/24/22 Diana Desir, [facility] [address] [place] [address] Assigned MTM Pharmacist 04/07/22 Livan Sharif MD [address], [facility] [address] [place] [address] Cardiovascular Disease 05/14/22 Catherine Cm MD [address] [facility] [address] [place] [phone] Cardiovascular Disease 07/21/22 Valery Veronica, PA-C [address] [place] [id number] Physician [employer] Principal Dermatology 07/21/22 Brea Quinn APRN HOME SAL[employer]ICE PROFESSIONAL [address] [place], [place] [address] Nurse Practitioner Dermatology 09/21/22 Brea Quinn APRN HOME SALES SERVICE PROFESSIONAL [address] [facility] [place], [place] [address] Assigned Surgical Provider 10/09/22 [place] [address] [facility] [address] [place] [address] Assigned Musculoskeletal Provider 10/09/22 Alfonso Renteria MD [address] [facility] [address] [place], [place] [address] Assigned Neuroscience Provider 04/02/23 Radha Lomeli APRN HOME SALES SERVICE PROFESSIONAL [address] [place] [address] Assigned Heart and Vascular Provider 05/28/23 Jelena David OD [address] [facility] [place] [address] MD Ophthalmology 06/15/23 Esha Grimm PA-C [address] [place] [phone] Assigned PCP 07/16/23 Valery Veronica PA-C [address] [place] [address] Physician [employer] Principal Dermatology 09/19/23 Rey Tay MD [address] [place] [address] Gastroenterology 09/20/23 Rocky Zepeda DO [address] [place] [address] Physician Gastroenterology 09/20/23 Philip Dumont MD [address] [place] [address] Physician Ophthalmology 09/22/23 Meredith Carrera PA-C [address] [place] [address] Assigned Gastroenterology Provider 11/01/23 Neil Kent MD [address] [address] Dermatology 11/02/23 [place] [address] [place] [address] Neurological Surgery 12/26/23 Audrey Waite PA-C [address] [place], [place] [address] Physician [employer] Principal Dermatology 02/28/24
--- OUTSIDE RECORDS SUMMARY | 2024-03-12 19:29 | XMS_ITS | Clinical Summary ---
Author Organization [facility] Address [address] [place] [id number] Care Team Providers Care Circle Shear Operator Name Role Phone ThangKendrickDiana T [facility] Unavailable Rain Galaviz PA-C Unavailable [phone] Tavia Wyatt MD Unavailable Unavailable Erica Farrell APRN FOOD PREPARATION SUPERVISOR Unavailable Rich Barrett MD Unavailable Neil Kent MD Unavailable Diana Desir [facility] Unavailable [phone] Livan Sharif MD Unavailable Catherine Cm MD Unavailable + Valery Veronica PA-C Unavailable [phone] Brea Quinn CASING FINISHER AND STUFFER FOOD PREPARATION SUPERVISOR Unavailable Brea Quinn CASING FINISHER AND STUFFER FOOD PREPARATION SUPERVISOR Unavailable Jose Francisco Johnson MD Unavailable Alfonso Renteria MD Unavailable [phone] Esha Grimm PA-C Primary Care Provider [phone] Radha Lomeli CASING FINISHER AND STUFFER FOOD PREPARATION SUPERVISOR Unavailable [phone] Jelena David OD Unavailable [facility]ol[facility]ina PA-C Unavailable [phone] Valery Veronica PA-C Unavailable Rey Tay MD Unavailable ZepedaRocky Unavailable Philip Dumont MD Unavailable [phone] Meredith Carrera PA-C Unavailable Neil Kent MD Unavailable Juan Pablo Emmanuel MD Unavailable [phone] Audrey Waite PA-C Unavailable Allergies Active Allergy Reactions Criticality Noted [...] available in ED consider consultation with ED Transmission Repairer. Relevant Medical History (at time Care Plan initiated): Seizures (on 500mg Keppra daily), SVT (on 12.5mg metoprolol daily), Anxiety and Depression Past imaging: CT: 3 in the 12 months prior to initiation of care plan. MRI: 0 in the 12 months prior to initiation of care plan. ED Ultrasound: 8 in the 12 months prior to initiation of care plan. Total [facility] ED visits in 12 months prior to initiation of Care Plan: 11 Total [facility] Hospital Admissions in 12 months prior to initiation of Care Plan: 0 (she has technically had 2 admissions due to related issues with OBGYN) Expected home rescue plan: Metoprolol 12.5mg PRN PCP: Marija Edgar APRN CNP - Family Medicine - [facility] Specialists: Dr. Galo Burrell - Cardiology - [facility] Heart Clinic Cesar Dotson - Neurology - [facility] Epilepsy Care Care Coordination: Has worked with Community Health Worker in past - ARACELIS Parker, Clinical Care Coordination - [facility] ([place], [place] and [place]) - Follow up plan after an ED visit: Marija Edgar APRN CNP - [facility] Medicine - [facility] Initiated: 2020 Problem Noted Date Diagnosed Date Paroxysmal supraventricular tachycardia (H24) SVT (supraventricular tachycardia) (H24) 022 Encounter for pharmacogenetic testing 04/17/2021 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 JANENE (generalized anxiety disorder) 09/29/2020 Right ureteral stone 05/27/2020 Overview: Added automatically from request for surgery [id number] Left ureteral stone 05/27/2020 Overview: Added automatically from request for surgery [id number] Head ache 02/18/2020 Seizure 05/02/2019 Depressed 05/02/2019 Anxiety 05/02/2019 Tobacco abuse counseling 05/02/2019 Psoriasis 05/02/2019 Resolved Problems Problem Noted Date Diagnosed Date Resolved Date Neck pain 08/25/2022 08/17/2023 Lower back pain 08/25/2022 08/17/2023 Term 01/13/2021 10/11/2022 Encounter for triage in patient 12/09/2020 04/18/2023 Asthma 06/04/2020 02/07/2024 Encounters Date Type Department Care Team Description 03/08/2024 11:00 AM CDT - 03/08/2024 11:59 PM CDT Hospital Encounter [facility] Specialty Care [address] [place] [address] [address] [place] [address] Radha Lomeli APRN CNP SVT (supraventricular tachycardia) (H24) Discharge Disposition: Home or Self Care 03/08/2024 Travel 03/07/[address] [place] [address] Carley Myles RN 03/06/2024 3:00 PM CDT Office Visit [address] [place] [address] Radha Lomeli APRN CNP SVT (supraventricular tachycardia) (H24) (Primary Dx); Palpitations 03/06/2024 Travel 03/06/2024 MyC Medical Advice [facility] Spine and Neurosurgery [address] [facility] [address] [place] [phone] Ebony Cid APRN FOOD PREPARATION SUPERVISOR 03/05/2024 MyC Medical Advice [facility] Gastroenterology Clinic [address] [place] [phone] Rebecca Moctezuma 03/05/2024 Telephone [facility] Gastroenterology Clinic [address] [place] [phone] None Procedure (Cancel/Reschedule) 03/05/2024 Telephone [facility] Heart Clinic [place] [address] [facility] [address] [place] [phone] Radha Lomeli, CASING FINISHER AND STUFFER FOOD PREPARATION SUPERVISOR Call Back (Heart monitor for 14 or 30 days ) 03/03/2024 Travel 03/01/2024 Telephone [facility] [address] [place] [phone] Esha Grimm PAUcheC Letter for School/Work 02/28/2024 MyC Medical Advice [facility] Gastroenterology [address] [phone] Rain Burnette RN 02/28/2024 Telephone [facility] Endoscopy [address] [place] [phone] Annabelle Wetzel, VJ Pt. Information/instruc tion (EGD ) 02/27/2024 10:35 AM CDT Office Visit [facility] Urgent Care [place] [address] [place] [address] Nicole Garcia PA-C Vagina, candidiasis (Primary Dx); Bacterial vaginosis; Nasal congestion 02/27/2024 MyC Medical Advice [facility] Spine and Neurosurgery [address] [facility] [address] [place] [phone] Ebony Cid APRN FOOD PREPARATION SUPERVISOR 02/27/2024 Travel 02/07/2024 10:00 AM CDT Office Visit [address] [phone] Lauren Claudio PA-C Yeast infection of the vagina (Primary Dx); Bacterial vaginosis; Vaginal discharge; Screening examination for venereal disease; Chest tightness 02/07/2024 Travel 02/06/[address] [phone] Esha Grimm PA-C Symptoms (VAGINAL SYMPTOMS THAT PATIENT WOULD LIKE TO GET LAB ORDERS FOR ) 02/01/2024 MyC Medical Advice [facility] Neurology [facility] - [address] [phone] Macy Pinedo RN 01/26/2024 12:50 PM CDT Therapy Visit [facility] Rehabilitation Services [address] [phone] Ebony Cid APRN FOOD PREPARATION SUPERVISOR Rustam Medina PT Chiari malformation type I (H); Neck pain 01/26/2024 Travel 01/23/2024 10:00 AM CDT Office Visit [facility] Neurology [facility] - [address] [phone] Juan Pablo Emmanuel MD Neck pain (Primary Dx); Paresthesia of arm; Chiari I malformation (H) 01/23/2024 Travel 01/23/2024 Telephone [facility] Spine and Neurosurgery [address] [facility] [address] [place] [address] Ebony Cid APRN FOOD PREPARATION SUPERVISOR 01/22/2024 Travel 01/16/[address] [phone] Esha Grimm PA-C 01/11/2024 9:53 AM CDT - 01/11/2024 12:[address] [facility] Emergency Dept [address] [place] [phone] Jeffrey Whalen MD Dyspnea, unspecified type Discharge Disposition: Left Without Being Seen 01/11/2024 Travel 01/09/2024 Telephone [facility] Neurology [facility] - [address], [address] [place] [address] Juan Pablo Emmanuel MD Appointment 01/09/2024 Telephone [facility] Spine and Neurosurgery [address] [place] [phone] Ebony Cid APRN FOOD PREPARATION SUPERVISOR Results (Cervical and brain MRIs) 01/09/2024 Travel 01/06/2024 10:53 AM CDT - 01/06/2024 11:59 PM CDT Hospital Encounter [facility] [address] [place] [address] Ebony Cid APRN FOOD PREPARATION SUPERVISOR Chiari malformation type I (H); Numbness and tingling of upper extremity; Abnormal finding on MRI of brain Discharge Disposition: Home or Self Care 01/06/2024 Telephone [facility] Neurology [facility] - [address], [address] [place] [address] Juan Pablo Emmanuel MD Appointment 01/05/2024 1:40 PM CDT Office Visit [facility] Spine and Neurosurgery [address] [place] [phone] Ebony Cid APRN FOOD PREPARATION SUPERVISOR Abnormal finding on MRI of brain (Primary Dx); Chiari malformation type I (H); Numbness and tingling of upper extremity; Neck pain 01/05/2024 Travel 01/02/2024 PRE VISIT [facility] Neurosurgery Clinic [address] [phone] Juan Pablo Emmanuel MD Pre Visit Planning - 2 Attempts (Pre charting) 12/26/2023 9:32 AM CDT - 12/26/2023 10:[address] [facility] Emergency Dept [address] [place] [address] Chidi Kim MD Chest tightness Discharge Disposition: Home or Self Care 12/26/2023 Travel 12/26/2023 Telephone [facility] [address] [place] [phone] Esha Grimm PA-C Same Day Appointment (sore throat, body aches, headaches couple days) 12/23/2023 Travel 12/21/2023 1:20 PM CDT Ancillary Procedure [address] [phone] Helen Cortez APRN FOOD PREPARATION SUPERVISOR Chest tightness; SOB (shortness of breath) 12/21/2023 12:40 PM CDT Office Visit [facility] Urgent Care [address] [phone] Helen Cortez APRN FOOD PREPARATION SUPERVISOR Vaginal odor (Primary Dx); Chest tightness; SOB (shortness of breath) 12/21/2023 Telephone [facility] Heart [address] [place] [phone] Livan Sharif MD Call Back (Schedule appt tomorrow ) 12/21/2023 Travel from Last 3 Months Immunizations Name [...] Answer Date Recorded PHQ-2 Score 1 02/07/2024 [facility] - Occupational Stress Questionnaire Answer Date Recorded [...] exercise at this level? 30 min 03/10/2023 Boston Depression Scale Answer Date Recorded Boston Depression Score 5 01/14/2021 Last EPDS [...] Description 03/26/2024 11:20 AM CDT Office Visit [facility] Spine and Neurosurgery [address] [facility] [address] [place] [address] Ebony Cid, CASING FINISHER AND STUFFER FOOD PREPARATION SUPERVISOR [address] [facility] [address] [place], [place] [address] 03/27/2024 11:00 AM CDT Office Visit [facility] [address] [facility] [address] [place] [phone] Jelena David, [address] [facility] [place] [address] 04/19/2024 2:45 PM CDT Office Visit [facility] [address] [place] [phone] Audrey Waite PA-C [address] [facility] EM[facility] B385, [facility] [address] [place], [place] [address] 05/08/2024 1:30 PM CDT Office Visit [facility] [address] [place] [phone] Lauren Claudio PA-C [address] [place], [place] [phone] Esha Grimm PA-C [address] [place] [address] 06/21/2024 2:00 PM WEBBING TACKER Office Visit [facility] Neurology Clinics - [place] [address] [place] [address], [address] [place] [phone] [place] [address] [place] [address] Johnny Penn MD [address] [place] [address] Scheduled Procedures Name Priority Associated Diagnoses Date/Ti me ESOPHAGOGASTRODUODENOSCOPY Eosinophilic esophagitis Esophageal dysphagia Health Maintenance Due Date Last Done Comments ADVANCE CARE PLANNING 2000 Pneumococcal Vaccine: Pediatrics (0 to 5 Years) and At-Risk Patients (6 to 64 Years) (2 of 2 - PCV) 09/22/2022 09/22/2021, 2000, 2000, Additional history exists ANNUAL REVIEW OF HM ORDERS 03/10/202403/10, 09/22/2021, 06/24/2020 YEARLY PREVENTIVE VISIT 03/10/2024 03/10/20, 09/22/2021, 06/24/2020, Additional history exists COVID-19 Vaccine (2022- season) 2024 INFLUENZA VACCINE (#1) 2024 , 03/27/2020, 05/02/2019, Additional history exists PHQ-9 08/09/2024 02/07/2024, 06/10, 05/16/2023, Additional history exists PAP 09/22/2024 09/22/2021 CHLAMYDIA SCREENING 02/06/2025 02/07/2024, 12/21/2023, 11/14/2023, Additional history exists DTAP/TDAP/TD IMMUNIZATION (8 - Td or Tdap) 11/11/2030 11/11/2020, 08/10/2011, 11/23/2004, Additional history exists HEPATITIS B IMMUNIZATION Completed 002, 08/07/2001, 03/28/2001, Additional history exists HPV IMMUNIZATION Completed 03/01/2012, [...] AM CDT Urine Culture not indicated Nicole Jose PA-C LAB - URINE ORDERABL ES LABORATORY [facility] [place] [facility] [address] [facility] (no room number, 1st floor of clinic) [place] [address], [facility] * (ABNORMAL) UA Macroscopic with reflex to Microscopic and Culture - Clinic Collect (02/27/2024 10:34AM CDT) Color Urine Yellow Colorless, Straw, Light Yellow, Yellow 02/27/2024 10:50 AM CDT LABORATORY Appearance Urine Clear Clear 02/27/20 24 10:50 AM CDT [facility] LAB[facility]ORY Glucose Urine Negative Negative mg/dL 02/27/2024 10:50 AM CDT [facility] Bilirubin Urine Negative Negative 10:50 AM CDT [facility] Ketones Urine Negative Negative mg/dL 02/27/2024 10:50 AM CDT [facility] Specific [place] Urine 1.020 1.003 - 1.035 02/27/2024 10:50 AM CDT LABORATORY Blood Urine Trace(A) Negative 02/27/2024 10:50 AM CDT [facility] pH Urine 7.0 5.0 - 7.0 02/27/2024 10:50 AM CDT [facility] Protein Albumin Urine Negative Negative mg/dL 02/27/2024 10:50 AM CDT [facility] Urobilinogen Urine 1.0 0.2, 1.0 E.U./dL 02/27/2024 10:50 AM CDT [facility] Nitrite Urine Negative Negative 02/27/2024 10:50 AM CDT [facility] LAB[facility] Leukocyte Esterase Urine Negative Negative 02/27/2024 10:50 AM CDT [facility] LABORATORY Urine MID-STREAM URINE SPECIMEN / Unknown Non-blood Collection / Unknown 02/27/2024 10:34 AM CDT 02/27/2024 10:41 AM CDT Asseta PA-C LAB - URINE ORDERABL ES Performing Organization Address [facility]/ZIP Co de Phone Number LABORATORY [facility] [place] [facility] [address] [facility] (no room number, [facility]st floor [address] [facility]) [address] * (ABNORMAL) Wet prep - lab collect (02/27/2024 10:34 AM CDT) Only the most recent of3 resultswithin the time period is included. Trichomonas Absent Absent REINA 02/27/2024 11:00 AM CDT [facility] Yeast Present(A) Absent REINA 02/27/2024 11:00 AM CDT [facility] LAB[facility] Clue Cells Present(A) Absent REINA 02/27/2024 11:00 AM CDT [facility] LABORATORY WBCs/high power field 3+(A) None REINA 02/27/2024 11:00 AM CDT [facility] LABORATORY Swab VAGINAL STRUCTURE / Unknown Non-blood Collection / Unknown 02/27/2024 10:34 AM CDT 02/27/2024 10:41 AM CDT Asseta PA-C LAB - MICRO GENERAL ORDERABLES Performing Organization Address [facility] Co de Phone Number LABORATORY [facility] [place] [facility] [address] [facility] (no room number, [facility] floor [address] [facility]) [address] * HIV Antigen Antibody Combo (02/07/2024 [...] LAB - BLOOD ORDERA BLES UU LABORATORY [facility] [address] [facility], Room [address] * Treponema Abs w Reflex to [...] - BLOOD ORDERA BLES Performing Organization Address City/[facility]/ZIP Co de Phone Number SPECIALTY CORE/PROT/ENDO Specialty Core/Prot/Endo [address] [facility], Room [address] * Chlamydia trachomatis/Neisseria gonorrhoeae by PCR - Clinic Collect (02/07/2024 10:08 AM CDT) Only the most recent of2 resultswithin the time period is included. Chlamydia Trachomatis Negative Negative 02/07/2024 6:31 PM CDT UU IDD LABORATORY Comment: Negative for C. trachomatis rRNA by plate drying machine tender mediated amplification. A negative result by plate drying machine tender mediated amplification does not preclude the presence of infection because results are dependent on proper and adequate collection, absence of inhibitors and sufficient rRNA to be detected. Neisseria gonorrhoeae Negative Negative 02/07/2024 6:31 PM CDT [facility]ORATORY Comment:Negative for N. gono rrhoeae rRNA by plate drying machine tender mediated amplification. A negative result by plate drying machine tender mediated amplification does not preclude the presence of C. trachomatis infection because results are dependent on proper and adequate collection, absence of inhibitors and sufficient rRNA to be detected. Swab VAGINAL STRUCTURE / Unknown Non-blood Collection / Unknown 02/07/2024 10:08 AM CDT 02/07/2024 10:13 AM CDT Lauren Claudio PA-C LAB - MICRO GENERA L ORDERABLES UU IDD LABORATORY [facility] Inf. Diseases Diag. Lab [address] [facility], [address] [place] [address], [facility] * D dimer, quantitative (02/07/2024 10:08 AM [...] The cut-off value is 0.50 ug/mL FEU. Laurne Claudio PA-C LAB - BLOOD ORDERA BLES Performing Organization Address City/[facility]/ZIP Co de Phone Number OX LABORATORY [facility] [place] [facility] [address] Lab (no room number, 1st floor of clinic) [place] [address], [facility] [phone] * Basic metabolic panel (Ca, Cl, CO2, [...] LAB - BLOOD ORDERA BLES UU LABORATORY [facility] [address] [facility], [address] [place] [address] * HCG QUALitative (blood) (01/11/2024 11:10 AM CDT) hCG Serum Qualitative Negative Negative REINA 01/11/2024 11:57 AM CDT [facility] LABORATORY Comment:This test is for scr eening purposes. Results should be interpreted along with the clinical picture. Confirmation testing is available if warranted by ordering [id number], HCG Quantitative . Blood STRUCTURE OF RIGHT HAND / Unknown Venipuncture / Unknown 01/11/2024 11:10 AM CDT 01/11/2024 11:15 AM CDT Jeffrey Whalen MD LAB - BLOOD DONYA HERRERA [facility] Organization Address City/State/ZIP Co de Phone Number RH LABORATORY [facility] Acute Care Lab [address] Lab (1st floor, no room number) [place] [address] * (ABNORMAL) CBC with platelets and [...] Whalen MD LAB - BLOOD DONYA HERRERA [facility] Organization Address City/State/ZIP Co de Phone Number LABORATORY [facility] Acute Care Lab [address] [facility] Lab (1st floor, no room number) [place] [address], [facility] * Troponin T, High Sensitivity (01/11/2024 10:30 AM CDT) [facility] Troponin T, High Sensitivity <6 <=14 ng/L [...] Whalen MD LAB - BLOOD ORDE SHARON [facility] Acute Care Lab [address] Lab (1st floor, no room number) [place] [address] * EKG 12 lead (01/11/2024 9:55 AM CDT) Only the most recent of2 resultswithin the time period is included. Systolic Blood Pressure mmHg RADIOLOGY RESULTS Diastolic Blood Pressure mmHg RADIOLOGY RESULTS Ventricular Rate 60 BPM RAD IOLOGY RESULTS Atrial Rate 60 BPM RADIOLOG Y RESULTS MI Interval 146 ms RADIOLOG Y RESULTS QRS Duration 84 ms RADIOLO GY RESULTS QT 382 ms RADIOLOGY RESULTS QTc 382 ms RADIOLOGY RESULTS P [place] 61 degrees RADIOLOGY RESULTS R AXIS 70 degrees RADIOLOGY RESULTS T [place] 67 degrees RADIOLOGY RESULTS Interpretation ECG Sinus rhythm Normal ECG When compared with ECG of 26-DEC-2023 09:56, No significant change was found Unconfirmed report - interpretation of this ECG is computer generated - see medical record for final interpretation Confirmed by - EMERGENCY ROOM, PHYSICIAN ([id number]), web content editor Saleem Gomez ([id number]) on 01/11/2024 12:31:03 PM RADIOLOGY RESULTS 01/11/2024 [...] MR BRAIN W/O and W CONTRAST LOCATION: [facility] DATE: 01/06/2024 INDICATION: numbness tingling [...] MR BRAIN W/O and W CONTRAST LOCATION: [facility] DATE: 01/06/2024 INDICATION: numbness tingling both arms and chest, torso. Recheck W3cmfeco and hx Chiari and right parietal abnormality, [...] at the right lateral aspect of the S0tgnakoitz body. Ebony Cid APRN FOOD PREPARATION SUPERVISOR IMG MRI ORDERABLES * MR Brain w/o [...] MR BRAIN W/O and W CONTRAST LOCATION: [facility] DATE: 01/06/2024 INDICATION: numbness tingling [...] MR BRAIN W/O and W CONTRAST LOCATION: [facility] DATE: 01/06/2024 INDICATION: numbness tingling both arms and chest, torso. Recheck Q6stzleo and hx Chiari and right parietal abnormality, [...] at the right lateral aspect of the X0gicmbzslr body. Ebony Mary Cid CASING FINISHER AND STUFFER FOOD PREPARATION SUPERVISOR IMG MRI ORDERABLES * Symptomatic Influenza A/B, [...] the Xpert Xpress CoV2/Flu/RSV Assay on the [employer] GeneXpert Instrument. This test should be ordered [...] management. This test was validated by the [facility]. These laboratories are certified under the Clinical Laboratory Improvement Amendments of 1988 (CLIA-88) as qualified to perform high complexity laboratory testing. Chidi Kim MD LAB - MICRO GENER AL ORDERABLES LABORATORY [facility] Acute Care Lab [address] [facility] Lab (1st floor, no room number) [place] [address] * Group A Streptococcus PCR Throat Swab (12/26/2023 9:02 AM CDT) Pathologist [facility] Group A strep by PCR Not Detected Not Detected 12/26/2023 9:37 AM CDT LABORATORY Swab STRUCTURE OF ANTERIOR PORTION OF NECK / Unknown Non-blood Collection / Unknown 12/26/2023 9:02 AM CDT 12/26/2023 9:09 AM CDT [facility] LABORATORY - 12/26/2023 9:37 AM CDT The Xpert Xpress Strep A test, performed on the [employer] Systems, is a rapid, qualitative in vitro [...] MD LAB - MICRO GENER AL ORDERABLES [facility] Acute Care Lab [address] [facility] Lab (1st floor, no room number) [place] [phone] * Hepatitis C antibody (12/21/2023 1:39 PM CDT) [facility] Hepatitis C Antibody Nonreactive Nonreactive 12/22/2023 2:27 [...] 12/21/2023 1:39 PM CDT Helen Cortez ARLENE FOOD PREPARATION SUPERVISOR LAB - BLOOD ORDERABL ES UU LABORATORY [facility] [address] [facility], Room [address] [place] [phone], [facility] * Comprehensive metabolic panel (12/21/2023 1:39 PM CDT) [facility] Sodium 138 135 - 145 mmol/L 12/21/2023 [...] CDT 12/21/2023 1:39 PM CDT Helen Cortez CASING FINISHER AND STUFFER FOOD PREPARATION SUPERVISOR LAB - BLOOD ORDERABL ES LABORATORY [facility] Acute Care Lab [address] [facility] Lab (1st floor, no room number) [place] [address], [facility] * XR Chest 2 Views (12/21/2023 1:26 [...] unremarkable. CHIDI SCHWARTZ MD Helen Cortez APRN [facility] IMG DIAGNOSTIC IMAGI NG ORDERABLES * UA [...] 12/21/2023 12:58 PM CDT LV LABORATORY Specific [place] Urine 1.010 1.003 - 1.035 12/21/2023 12:58 [...] LAB - URINE ORDERABL ES LV LABORATORY [facility] [place] [facility] [address] [facility] Lab (no room number, 1st floor of clinic) [place] [address], [facility] [phone] * EKG 12-lead complete w/read - Clinics (12/21/2023) Helen Cortez APRN FOOD PREPARATION SUPERVISOR ECG ORDERABLES * Pap screen reflex to [...] of this testing was completed at [facility] Laboratory 09/25/2021 10:27 AM CDT SPECIALTY LABS Brushing CERVIX UTERI STRUCTURE / Unknown 09/22/2021 3:14 PM CDT 09/22/2021 3:48 PM CDT Marija Edgar APRN FOOD PREPARATION SUPERVISOR LAB - [facility] [address] [facility], Room [address] [place] [address], [place] [phone] from Last 3 Months or Most Recently Relevant to Health Maintenance Advance Directives For more information, please contact: [phone] * Full Code (Latest Code Status on File) Date Activated Date Inactivated Comments 01/14/2021 7:36 AM 01/15/2021 6:05 PM All basic and advanced life-sustaining interventions are performed as appropriate Question Answer Comments Code status determined by: Discussion with corona nt/ legal decision maker Care Teams Circle Shear Operator Relationship Specialty Start Date End Date Esha Grimm PA-C [address] [place] [address] PCP - General Family Medicine 05/04/23 Diana Desir, [facility] [address] [place] [address] Pharmacist Pharmacist 04/17/21 Rain Galaviz PA-C [address] [place] [address] [address] [place] [address] Physician Economic Consultant Dermatology 04/28/21 Tavia Wyatt MD [address] [place] [address] [address] [facility] [address] Dermatology 07/14/21 Erica Farrell APRN FOOD PREPARATION SUPERVISOR 6405 [facility] [address] [place], [place] [address] Nurse Practitioner Cardiovascular Disease 09/09/21 Rich Barrett MD 516 [facility] [address] [place], [place] [address] Physician Ophthalmology 01/21/22 Neil Kent MD 500 [place], [place] [address] Dermatology 02/24/22 Diana Desir, [facility] [address] [place] [address] Assigned MTM Pharmacist 04/07/22 Livan Sharif MD [address], [facility] [address] [place] [address] Cardiovascular Disease 05/14/22 Catherine Cm MD 6405 [facility] [address] [place] [address] Cardiovascular Disease 07/21/22 Valery Veronica, PA-C 909 [place] [address] Physician Economic Consultant Dermatology 07/21/22 Brea Quinn APRN FOOD PREPARATION SUPERVISOR [address] [place] [address] Nurse Practitioner Dermatology 09/21/22 Brea Quinn APRN FOOD PREPARATION SUPERVISOR 6401 [place] [address] Assigned Surgical Provider 10/09/22 [place] [address] [address] Assigned Musculoskeletal Provider 10/09/22 Alfonso Renteria MD 5775 [facility] 200 [place] [address] Assigned Neuroscience Provider 04/02/23 Radha Lomeli APRN FOOD PREPARATION SUPERVISOR [address] [place] [address] Assigned Heart and Vascular Provider 05/28/23 Jelena David OD [address] [facility] [place] [address] MD Ophthalmology 06/15/23 Esha Grimm PA-C [address] [place] [address] Assigned PCP 07/16/23 Valery Veronica PA-C [address] [place] [address] Physician Economic Consultant Dermatology 09/19/23 Rey Tay MD [address] [place] [address] Gastroenterology 09/20/23 Rocky Zepeda DO [address] [place] [address] 945555 Physician Gastroenterology 09/20/23 Philip Dumont MD [address] [place] [address] 695245 Physician Ophthalmology 09/22/23 Meredith Carrera PA-C [address] [place] [address] 939295 Assigned Gastroenterology Provider 11/01/23 Neil Kent MD [address] [place] [address] 741110 Dermatology 11/02/23 [place] [address] [place] [address] Neurological Surgery 12/26/23 Audrey Waite PA-C 500 [place] [address] Physician Economic Consultant Dermatology 02/28/24
--- OUTSIDE RECORDS SUMMARY | 2024-03-12 19:29 | XMS_ITS | Encounter Summary ---
Author Organization [place] Address [address] [place] [address] Care Team Providers Care Surface Plate Inspector Name Role Phone Thang Diana [place] [facility] Unavailable [phone] Rain Galaviz PA-C Unavailable Tavia Wyatt MD Unavailable Unavailable Erica Farrell APRN CHECK EMBOSSER Unavailable Rich Barrett MD Unavailable Neil Kent MD Unavailable Diana Desir Stanislav [facility] Unavailable [phone] Livan Sharif MD Unavailable Catherine Cm MD Unavailable + Valery Veronica PA-C Unavailable [phone] Brea Quinn CLIENT ADVISOR CHECK EMBOSSER Unavailable [phone] Brea Quinn CLIENT ADVISOR CHECK EMBOSSER Unavailable Jose Francisco Johnson MD Unavailable Alfonso Renteria MD Unavailable + [phone] Esha Grimm PA-C Primary Care Provider [phone] Radha Lomeli CLIENT ADVISOR CHECK EMBOSSER Unavailable Jelena David OD Unavailable Esha Grimm Adam PA-C Unavailable [phone] Valery Veronica PA-C Unavailable [phone] Rey Tay MD Unavailable ZepedaRocky Unavailable Philip Dumont MD Unavailable [phone] Meredith Carrera PA-C Unavailable Neil Kent MD Unavailable Juan Pablo Emmanuel MD Unavailable Audrey Waite PA-C Unavailable Reason for Referral * CV Testing (Routine) - Closed Specialty Diagnoses / Procedures Referred By Contac t Referred To Contact Cardiology Diagnoses SVT (supraventricular tachycardia) (H24) Procedures Cardiac Event Monitor Adult Pediatric Radha Lomeli APRN CNP [address] [place] [address] Rh Cv Cardiac Svc [facility] [address] [place] [address] Referral ID Status Reason Start Date Expiration Date Visits Re quested Visits Authorized [id number] Closed 03/07/2024 03/07/2025 1 1 Reason for Visit * CV Testing (Routine) - Closed Specialty Diagnoses / Procedures Referred By Contac t Referred To Contact Cardiology Diagnoses SVT (supraventricular tachycardia) (H24) Procedures Cardiac Event Monitor Adult Pediatric Radha Lomeli APRN CNP [address] [place] [address] [place] [address] [address] [place] [address] Referral ID Status Reason Start Date Expiration Date Visits Re quested Visits Authorized [id number] Closed 03/07/2024 03/07/2025 1 1 Encounter Details Date Type Department Care Team (Latest Contact Info) Description 03/08/2024 11:00 AM CDT - 03/08/2024 11:59 PM CDT Hospital Encounter [facility] [address] [facility] [address] [place] [address] Radha Lomeli E, CLIENT ADVISOR CHECK EMBOSSER [address] [place] [address] SVT (supraventricular tachycardia) (H24) Discharge Disposition: Home or Self Care Social [...] Answer Date Recorded PHQ-2 Score 1 02/07/2024 [facility] - Occupational Stress Questionnaire [...] exercise at this level? 30 min 03/10/2023 [place] Depression Scale Answer Date Recorded [place] Depression Score 5 01/14/2021 Last EPDS Self [...] 2 10/01/2022 documented as of this encounter Progress Notes * Saleem Gomez - 03/08/2024 11:18 AM CDT 14-day event monitor placed. documented in this encounter Plan of Treatment Upcoming Encounters Date Type Department Care Team (Late st Contact Info) Description 03/26/2024 11:20 AM CDT Office Visit [facility] Spine and Neurosurgery 1747 [facility] 100 [place] [address] Ebony Cid APRN CHECK EMBOSSER 500 [place], [place] [address] 03/27/2024 11:00 AM CDT Office Visit [facility] [place] [address] [facility] [address] [place] [phone] Jelena David, 3305 [facility] [place] [address] 04/19/2024 2:45 PM CDT Office Visit [facility] 830 [place] [phone] Audrey Waite PA-C 420 [facility] [address], [facility] 603 [place], [place] [address] 05/08/2024 1:30 PM CDT Office Visit [facility] [address] [place] [address] Lauren Claudio PA-C [address] [place] [address] Esha Grimm PA-C [id number] [place] [address] 06/21/2024 2:00 PM FEATHER EDGER Office Visit [facility] Neurology [address], [address] [place] [phone] [place] [address] [place] [address] Johnny Penn MD 6545 [place] [address] Pending Results Name Type Priority Associated Diagnoses Date /Time Cardiac Event Monitor Adult Pediatric Cardiac Services Routine SVT (supraventricular tachycardia) (H24) 03/08/2024 11:18 AM CDT Scheduled Orders Name Type Priority Associated Diagnoses Orde r Schedule Cardiac Event Monitor Adult Pediatric Cardiac Services Routine SVT (supraventricular tachycardia) (H24) 1 Occurrences starting 03/08/2024 until 03/08/2024 Scheduled Procedures Name Priority Associated Diagnoses Date/Ti me ESOPHAGOGASTRODUODENOSCOPY Eosinophilic esophagitis Esophageal dysphagia documented as of this encounter Visit Diagnoses Diagnosis SVT (supraventricular tachycardia) (H24) Other specified cardiac dysrhythmias documented in this encounter Additional Health Concerns Assessment Noted Time PHQ-9 Depression Total Score: 3 02/07/20 24 9:33 AM CDT documented as of this encounter Care Teams Surface Plate Inspector Relationship Specialty Start Date End Date Esha Grimm PA-C [id number] [place] [address] PCP - General Family Medicine 05/04/23 Diana Desir, [facility] [address] [place] [address] Pharmacist Pharmacist 04/17/21 Rain Galaviz PA-C [address] [place] [address] [address] [place] [address] Physician Package Worker Dermatology 04/28/21 Tavia Wyatt MD [address] [place] [address] DR [facility] [facility] [address] Dermatology 07/14/21 Erica Farrell APRN CHECK EMBOSSER [address] [place] [address] Nurse Practitioner Cardiovascular Disease 09/09/21 Rich Barrett MD [address] [place] [address]64335 Physician Ophthalmology 01/21/22 Neil Kent MD [address] [place] [address] Dermatology 02/24/22 Diana Desir, [facility] [address] [place] [address] Assigned MTM Pharmacist 04/07/22 Livan Sharif MD [address] [place] [address] Cardiovascular Disease 05/14/22 Catherine Cm MD [address] [facility] [address] [place] [address] Cardiovascular Disease 07/21/22 Valery Veronica, PA-C 909 [place], [place] 7[address]85 Physician Package Worker Dermatology 07/21/22 Brea Quinn APRN CHECK EMBOSSER 500 [place], [place] [address] Nurse Practitioner Dermatology 09/21/22 Brea Quinn APRN CHECK EMBOSSER 6401 [place], [place] 507[address] Assigned Surgical Provider 10/09/22 [place] [address] [place], [place] [address] Assigned Musculoskeletal Provider 10/09/22 Alfonso Renteria MD 5775 [facility] 200 [place], [place] [address] Assigned Neuroscience Provider 04/02/23 Radha Lomeli APRN CHECK EMBOSSER 6405 [facility] [address] [place] [address]39[address] Assigned Heart and Vascular Provider 05/28/23 Jelena David OD 3305 [facility] [place] [address] MD Ophthalmology 06/15/23 Esha Grimm PA-C [address] [place] [address] Assigned PCP 07/16/23 Valery Veronica PA-C [address] [place] [address] 962585 Physician Package Worker Dermatology 09/19/23 Rey Tay MD [address] [place] [address]555 MD Gastroenterology 09/20/23 Rocky Zepeda DO [address] [place] [address] 9014[address] Physician Gastroenterology 09/20/23 Philip Dumont MD [address] [place] [address] 742035 Physician Ophthalmology 09/22/23 Meredith Carrera PA-C [address] [place] [address] Assigned Gastroenterology Provider 11/01/23 Neil Kent MD [address] [address] Dermatology 11/02/23 [place] [address] [place] [address] Neurological Surgery 12/26/23 Audrey Waite PA-C 500 [place] [address] Physician Package Worker Dermatology 02/28/24 documented as of this encounter
--- OUTSIDE RECORDS SUMMARY | 2024-03-12 19:29 | XMS_ITS | Encounter Summary ---
Author Organization [place] Address [address] [place] [address] Care Team Providers Care Drug Abuse Worker Name Role Phone Thang Diana [place] [facility] Unavailable [phone] Rain Galaviz PA-C Unavailable Tavia Wyatt MD Unavailable Unavailable Erica Farrell APRN DATA PROCESSING CLERK Unavailable Rich Barrett MD Unavailable Neil Kent MD Unavailable Diana Desir Stanislav [facility] Unavailable [phone] Livan Sharif MD Unavailable Catherine Cm MD Unavailable + Valery Veronica PA-C Unavailable [phone] Brea Quinn AUTOMATIC PINSETTER MECHANIC DATA PROCESSING CLERK Unavailable [phone] Brea Quinn AUTOMATIC PINSETTER MECHANIC DATA PROCESSING CLERK Unavailable Jose Francisco Johnson MD Unavailable Alfonso Renteria MD Unavailable [phone] Esha Grimm PA-C Primary Care Provider Radha Lomeli AUTOMATIC PINSETTER MECHANIC DATA PROCESSING CLERK Unavailable [phone] Jelena David OD Unavailable [phone] [facility] PA-C Unavailable [phone] Valery Veronica PA-C Unavailable [phone] Rey Tay MD Unavailable Rocky Zepeda Unavailable Philip Dumont MD Unavailable Meredith Carrera PA-C Unavailable [phone] Neil Kent MD Unavailable Juan Pablo Emmanuel MD Unavailable Audrey Waite PA-C Unavailable [phone] Reason for Referral * CV Testing (Routine) - Closed Specialty Diagnoses / Procedures Referred By Qian t Referred To Contact Cardiology Diagnoses SVT (supraventricular tachycardia) (H24) Procedures Cardiac Event Monitor Adult Pediatric Radha Lomeli APRN CNP [address] [place] [address] [facility] [address] [facility] [address] [place] [address] Referral ID Status Reason Start Date Expiration Date Visits Re quested Visits Authorized [id number] Closed 03/07/2024 03/07/2025 1 1 Encounter Details Date Type Department Care Team (Late st Contact Info) Description 03/07/2024 Telephone [facility] [address] [facility] [address] [place] [address] Carley Myles, RN Social History Tobacco Use Types Packs/Day [...] How often do you attend chur or mosque services? 1 to 4 times [...] Answer Date Recorded PHQ-2 Score 1 02/07/2024 [facility] - Occupational [...] exercise at this level? 30 min 03/10/2023 [place] Depression Scale Answer Date Recorded [place] Depression Score 5 01/14/2021 Last EPDS Self [...] Telephone Encounter - Carley Myles RN - 03/07/2024 1:21 PM CDT Called patient to discuss. Pt states she will mail back the Zio patch and get event monitor placed. Pt requested a dental scheduler to call her instead of her reaching out. Will route to scheduling team. [facility] Carley [facility] * Telephone Encounter - Radha Lomeli APRN CNP - 03/07/2024 10:03 AM CDT Placed order for 14-day event monitor GERRI [place] * Telephone Encounter - Carley Myles RN - 03/07/2024 9:08 AM CDT VM left from scheduling department regarding Zio patch. Pt was seen yesterday in [facility] by Radha Lomeli CNP. 14 day Zio patch monitor was ordered. VM states that a possible skin reaction was anticipated and pt was told by provider that alternative monitor would be ordered. Pt developed a rash soon after Zio patch placement. Routing to Radha Lomeli CNP for review. Carley ZABALA [facility] documented in this encounter Plan of Treatment Upcoming Encounters Date Type Department Care Team (Late st Contact Info) Description 03/26/2024 11:20 AM CDT Office Visit [facility] Spine and Neurosurgery 17[address] [facility] 100 [place] [phone] Ebony Cid APRN DATA PROCESSING CLERK 500 [place], [place] [address] 03/27/2024 11:00 AM CDT Office Visit [facility] [address] [facility] [address] [place] [phone] Jelena David, [place] 3305 [facility] [place] [address] 04/19/2024 2:45 PM CDT Office Visit [facility] 830 [place] [address] Audrey Waite PA-C 420 [facility] [address], [facility] 603 [place] [address] 05/08/2024 1:30 PM CDT Office Visit [facility] [address] [place] [phone] Lauren Claudio PA-C [address] [place] [address] Esha Grimm PA-C [address] [place] [address] 06/21/2024 2:00 PM URBAN DESIGNER Office Visit [facility] Neurology [facility] [address] [place] [address], [address] [place] [phone] [place] [address] [address] Johnny Penn MD 6545 [place], [place] [phone] Pending Results Name Type Priority Associated Diagnoses Date /Time Cardiac Event Monitor Adult Pediatric Cardiac Services Routine SVT (supraventricular tachycardia) (H24) 03/08/2024 11:18 AM CDT Scheduled Orders Name Type Priority Associated Diagnoses Orde r Schedule Cardiac Event Monitor Adult Pediatric Cardiac Services Routine SVT (supraventricular tachycardia) (H24) Expected: 03/08/2024 (Approximate), Expires: 03/07/2025 Scheduled Procedures Name Priority Associated Diagnoses Date/Ti me ESOPHAGOGASTRODUODENOSCOPY Eosinophilic esophagitis Esophageal dysphagia documented as of this encounter Visit Diagnoses Diagnosis SVT (supraventricular tachycardia) (H24)- Primary Other specified cardiac dysrhythmias Palpitations Dizziness Dizziness and giddiness Paroxysmal supraventricular tachycardia (H24) Paroxysmal supraventricular tachycardia Atypical chest pain Other chest pain documented in this encounter Additional Health Concerns Assessment Noted Time PHQ-9 Depression Total Score: 3 02/07/20 24 9:33 AM CDT documented as of this encounter Care Teams Drug Abuse Worker Relationship Specialty Start Date End Date Esha Grimm PA-C [address] [place] [phone] PCP - General Family Medicine 05/04/23 Diana Desir, [facility] [address] [place] [address] Pharmacist Pharmacist 04/17/21 Rain Galaviz PA-C [address] [place] [address] [address] [place] [address] Physician Utilities Equipment Repairer Dermatology 04/28/21 Tavia Wyatt MD [address] [place] [address] [address] [facility] [place] [place] [place] [address] Dermatology 07/14/21 Erica Farrell APRN DATA PROCESSING CLERK 6405 [facility] [address] [place] [address] Nurse Practitioner Cardiovascular Disease 09/09/21 Rich Barrett MD [address] [facility] [address] [place], [place] 40[address] Physician Ophthalmology 01/21/22 Neil Kent MD 500 [place], [place] 6[address] Dermatology 02/24/22 Diana Desir, [facility] [address] [place] [address] Assigned MTM Pharmacist 04/07/22 Livan Sharif MD [address], [facility] [address] [place] [address] Cardiovascular Disease 05/14/22 Catherine Cm MD [address] [facility] [address] [place] 57[address]55 Cardiovascular Disease 07/21/22 Valery Veronica, PAUcheC [address] [place] [address] 566225 Physician Utilities Equipment Repairer Dermatology 07/21/22 Brea Quinn APRN DATA PROCESSING CLERK [address] [place] [address] 220545 Nurse Practitioner Dermatology 09/21/22 Brea Quinn APRN DATA PROCESSING CLERK 6401 [facility] [place] [address] Assigned Surgical Provider 10/09/22 [place] [address] [facility] 300 [place] [address] Assigned Musculoskeletal Provider 10/09/22 Alfonso Renteria MD 57[address] [facility] 200 [place], [place] [address] Assigned Neuroscience Provider 04/02/23 Radha Lomeli APRN DATA PROCESSING CLERK [address] [place] [address] Assigned Heart and Vascular Provider 05/28/23 Jelena David OD [address] [facility] [address] Ophthalmology 06/15/23 Esha Grimm PA-C [address] [place] [address] Assigned PCP 07/16/23 Valery Veronica PA-C [address] [place] [address] Physician Utilities Equipment Repairer Dermatology 09/19/23 Rey Tay MD [address] [place] [address] MD Gastroenterology 09/20/23 Rocky Zepeda DO [address] [place] [address] Physician Gastroenterology 09/20/23 Philip Dumont MD [address] [place] [address] Physician Ophthalmology 09/22/23 Meredith Carrera PA-C [address] [place] [address] Assigned Gastroenterology Provider 11/01/23 Neil Kent MD [address] 580810 Dermatology 11/02/23 [place] [address] [facility] [place] [address] Neurological Surgery 12/26/23 Audrey Waite PA-C 500 [place], [place] 1684[address] Physician Utilities Equipment Repairer Dermatology 02/28/24 documented as of this encounter
--- OUTSIDE RECORDS SUMMARY | 2024-03-12 19:29 | XMS_ITS | Encounter Summary ---
Author Organization [facility] Address [address] [place] [address] Care Team Providers Care Drywall Contractor Name Role Phone Thang Diana [place] [facility] Unavailable Rain Galaviz PA-C Unavailable Tavia Wyatt MD Unavailable Unavailable Erica Farrell APRN INSIDE SALES DIRECTOR Unavailable Rich Barrett MD Unavailable Neil Kent MD Unavailable Diana Desir Stanislav [facility] Unavailable [phone] Livan Sharif MD Unavailable Catherine Cm MD Unavailable + Valery Veronica PA-C Unavailable [phone] Brea Quinn REFRIGERATION SYSTEMS INSTALLER INSIDE SALES DIRECTOR Unavailable Brea Quinn REFRIGERATION SYSTEMS INSTALLER INSIDE SALES DIRECTOR Unavailable Jose Francisco Johnson MD Unavailable Alfonso Renteria MD Unavailable + [phone] Esha Grimm PA-C Primary Care Provider Radha Lomeli REFRIGERATION SYSTEMS INSTALLER INSIDE SALES DIRECTOR Unavailable [phone] Jelena David OD Unavailable Esha Grimm PA-C Unavailable Valery Veronica PA-C Unavailable [phone] Rey Tay MD Unavailable Rocky Zepeda DO Unavailable Philip Dumont MD Unavailable [phone] Meredith Carrera PA-C Unavailable [phone] Neil Kent MD Unavailable Juan Pablo Emmanuel MD Unavailable [phone] Audrey Waite PA-C Unavailable [phone] Encounter Details Date Type Department Care Team (Latest Contact Info) Description 03/06/2024 Travel Social History Tobacco Use Types Packs/Day [...] often do you attend [facility] or church services? 1 to 4 [...] Answer Date Recorded PHQ-2 Score 1 02/07/2024 [facility] Occupational Stress Questionnaire Answer [...] at this level? 30 min 03/10/2023 [place] Depression Scale Answer Date Recorded [place] [...] Description 03/26/2024 11:20 AM CDT Office Visit [facility] Spine and Neurosurgery 1747 [facility] 100 [place] [address] Ebony Cid, REFRIGERATION SYSTEMS INSTALLER [facility] 500 [place], [place] 322185 03/27/2024 11:00 AM CDT Office Visit [facility] [address] [facility] [address] [place] [phone] Jelena David, OD 3305 [facility] [place] [address] 04/19/2024 2:45 PM CDT Office Visit [facility] 830 [place] [phone] Audrey Waite PA-C [address] [place] [address] B385, [facility] 603 [place], [place] [address]65[address] 05/08/2024 1:30 PM CDT Office Visit [facility] [address] [place] [address] Lauren Claudio PA-C [address]1200 [place] [address] Esha Grimm PA-C [address] [place] [address] 06/21/2024 2:00 PM PERINATAL BREASTFEEDING ASSISTANT Office Visit [facility] Neurology Clinics [facility] [address] [facility], [address] [place] [address] [place] [address] [place] [address] Johnny Penn MD 5549 [place] [address] Scheduled Procedures Name Priority Associated Diagnoses Date/Ti ut ESOPHAGOGASTRODUODENOSCOPY Eosinophilic esophagitis Esophageal dysphagia documented as of this encounter Visit Diagnoses Not on filedocumented in this encounter Additional Health Concerns Assessment Noted Time PHQ-9 Depression Total Score: 3 02/07/20 24 9:33 AM CDT documented as of this encounter Care Teams Drywall Contractor Relationship Specialty Start Date End Date Esha Grimm PA-C [address] [place] [address] PCP - General Family Medicine 05/04/23 Diana Desir, [facility] [address] [place], [place] [address] Pharmacist Pharmacist 04/17/21 Rain Galaviz PA-C [address] [place] [address] [address] [place] [address] Physician Power Press Operator Dermatology 04/28/21 Tavia Wyatt MD [address] [place] [address] [address] [facility] [place] [address] Dermatology 07/14/21 Erica Farrell APRN INSIDE SALES DIRECTOR [address] [place] 4[address]35 Nurse Practitioner Cardiovascular Disease 09/09/21 Rich Barrett MD [address] 239685 Physician Ophthalmology 01/21/22 Neil Kent MD 500 [place], [place] [address]605 Dermatology 02/24/22 [facility] 3033 [place], [place] 554736 Assigned [place] Pharmacist 04/07/22 Livan Sharif MD [address] [place] [address] Cardiovascular Disease 05/14/22 aCtherine Cm MD [address] [place] 228395 Cardiovascular Disease 07/21/22 Valery Veronica, PA-C [address] [place] [address] 752605 Physician Power Press Operator Dermatology 07/21/22 Brea Quinn APRN INSIDE SALES DIRECTOR 500 [place] [address] Nurse Practitioner Dermatology 09/21/22 Brea Quinn APRN INSIDE SALES DIRECTOR 6401 [place] [address] Assigned Surgical Provider 10/09/22 [place] [address] [address] [facility] 300 [place] [address] Assigned Musculoskeletal Provider 10/09/22 Alfonso Renteria MD 5775 [facility] 200 [place], [place] 722926 Assigned Neuroscience Provider 04/02/23 Radha Lomeli APRN INSIDE SALES DIRECTOR 6405 [facility] [address] [place] [address] Assigned Heart and Vascular Provider 05/28/23 Jelena David OD 3305 [facility] [place] [address] Ophthalmology 06/15/23 Esha Grimm PA-C [address] [place] [address] Assigned PCP 07/16/23 Valery Veronica PA-C [address] [place] [address] Physician Power Press Operator Dermatology 09/19/23 Rey Tay MD 9 [place] [address] MD Gastroenterology 09/20/23 Rocky Zepeda DO 500 [place] [address] Physician Gastroenterology 09/20/23 Philip Dumont MD [address] [place] [address] Physician Ophthalmology 09/22/23 Meredith Carrera PA-C 9 [place] [address] Assigned Gastroenterology Provider 11/01/23 Neil Kent MD [address] [address] Dermatology 11/02/23 [place] [address] [address] [facility] [place], [place] 391327 Neurological Surgery 12/26/23 Audrey Waite PA-C 500 [place] [address] Physician Power Press Operator Dermatology 02/28/24 documented as of this encounter
--- OUTSIDE RECORDS SUMMARY | 2024-03-12 19:30 | XMS_ITS | Encounter Summary ---
Author Organization [facility] Address [address] [place] [address] Care Team Providers Care Tool Design Drafter Name Role Phone Thang Diana [place] [facility] Unavailable Rain Galaviz PA-C Unavailable Tavia Wyatt MD Unavailable Unavailable Erica Farrell APRN LINING FELLER BLINDSTITCH Unavailable Rich Barrett MD Unavailable Neil Kent MD Unavailable Diana Desir Stanislav [facility] Unavailable [phone] Livan Sharif MD Unavailable Catherine Cm MD Unavailable + Valery Veronica PA-C Unavailable [phone] Brea Quinn DIGITAL FORENSIC ANALYST LINING FELLER BLINDSTITCH Unavailable [phone] Brea Quinn DIGITAL FORENSIC ANALYST LINING FELLER BLINDSTITCH Unavailable Jose Francisco Johnson MD Unavailable Alfonso Renteria MD Unavailable + [phone] Esha Grimm PA-C Primary Care Provider Radha Lomeli DIGITAL FORENSIC ANALYST LINING FELLER BLINDSTITCH Unavailable [phone] Jelena David OD Unavailable Esha Grimm PA-C Unavailable [phone] Valery Veronica PA-C Unavailable [phone] Rey Tay MD Unavailable Rocky Zepeda DO Unavailable Philip Dumont MD Unavailable [phone] Meredith Carrera PA-C Unavailable [phone] Neil Kent MD Unavailable Juan Pablo Emmanuel MD Unavailable [phone] Audrey Waite PA-C Unavailable [phone] Encounter Details Date Type Department Care Team (Late st Contact Info) Description 03/05/2024 MyC Medical Advice [facility] [address]th [place] [phone] Rebecca Moctezuma Social History Tobacco Use Types Packs/Day Years [...] PHQ-2 Score 1 02/07/2024 [facility] - Occupational Stress Questionnaire Answer Date Recorded [...] exercise at this level? 30 min 03/10/2023 [place] Depression Scale Answer Date Recorded [place] Depression Score 5 01/14/2021 Last EPDS Self [...] Description 03/26/2024 11:20 AM CDT Office Visit [facility] Spine and Neurosurgery 1747 [facility] 100 [place] [address] Ebony Cid, DIGITAL FORENSIC ANALYST [facility] 500 [place], [place] 445085 03/27/2024 11:00 AM CDT Office Visit [facility] [place] 3305 [facility] [address] [place] [phone] Jelena David, 3305 [facility] [place] [address] 04/19/2024 2:45 PM CDT Office Visit [facility] 830 [place] [phone] Audrey Waite PA-C 420 [facility] B385, [facility] 603 [place] [address] 05/08/2024 1:30 PM CDT Office [facility] [address] [place] [address] Lauren Claudio PA-C [address] [place] [address] Esha Grimm PA-C [address] [place] [address] 06/21/2024 2:00 PM REPRODUCTION TECHNICIAN Office Visit [facility] Neurology [address], [address] [place] [address] [place] [address] [place] [address] Johnny Penn MD 6545 [place] [address] Scheduled Procedures Name Priority Associated Diagnoses Date/Ti co ESOPHAGOGASTRODUODENOSCOPY Eosinophilic esophagitis Esophageal dysphagia documented as of this encounter Visit Diagnoses Not on filedocumented in this encounter Additional Health Concerns Assessment Noted Time PHQ-9 Depression Total Score: 3 02/07/20 24 9:33 AM CDT documented as of this encounter Care Teams Tool Design Drafter Relationship Specialty Start Date End Date Esha Grimm PA-C [id number] [place] [address] PCP - General Family Medicine 05/04/23 Diana Desir, [facility] 3033 [place] [address] Pharmacist Pharmacist 04/17/21 Rain Galaviz PA-C [address] [place] [address] [address] [place] [id number] Physician Tie Sawyer Dermatology 04/28/21 Tavia Wyatt MD [address] [place] [address] [address] [place] [address] Dermatology 07/14/21 Erica Farrell APRN LINING FELLER BLINDSTITCH [address] [place] 277995 Nurse Practitioner Cardiovascular Disease 09/09/21 Rich Barrett MD [address] [place] [address] 180185 Physician Ophthalmology 01/21/22 Neil Kent MD [address] [place] [address] 46[address] Dermatology 02/24/22 [facility] [address] [place] [address] 745956 Assigned [place] Pharmacist 04/07/22 Livan Sharif MD [address], [facility]00 [place] [id number] Cardiovascular Disease 05/14/22 Catherine Cm MD [address] [facility]00 [place] [id number] Cardiovascular Disease 07/21/22 Valery Veronica PA-C [address] [place] [address] Physician Tie Sawyer Dermatology 07/21/22 Brea Quinn APRN LINING FELLER BLINDSTITCH 500 [place] [address] Nurse Practitioner Dermatology 09/21/22 Brea Quinn APRN LINING FELLER BLINDSTITCH 6401 [place] [address] Assigned Surgical Provider 10/09/22 [place] [address] [address] Assigned Musculoskeletal Provider 10/09/22 Alfonso Renteria MD [address] [address] Assigned Neuroscience Provider 04/02/23 Radha Lomeli APRN LINING FELLER BLINDSTITCH [address] [place] [id number] [place] [address] Assigned Heart and Vascular Provider 05/28/23 Jelena David OD [address] [facility] [place] [address] Ophthalmology 06/15/23 Esha Grimm PA-C [address] [place] [address] Assigned PCP 07/16/23 Valery Veronica PA-C 909 [place], [place] 9[address]105 Physician Tie Sawyer Dermatology 09/19/23 Rey Tay MD 909 [place], [place] 522945 MD Gastroenterology 09/20/23 Rocky Zepeda DO 500 [place] [address] Physician Gastroenterology 09/20/23 Philip Dumont MD 516 [place], [place] 486325 Physician Ophthalmology 09/22/23 Meredith Carrera PA-C 9 [place], [place] 207845 Assigned Gastroenterology Provider 11/01/23 Neil Kent MD [address] 085280 Dermatology 11/02/23 [place] [address] [place], [place] 718[address] Neurological Surgery 12/26/23 Audrey Waite PA-C 500 [place] [address] Physician Tie Sawyer Dermatology 02/28/24 documented as of this encounter
--- OUTSIDE RECORDS SUMMARY | 2024-03-12 19:30 | XMS_ITS | Encounter Summary ---
Author Organization [facility] Address [address] [place] [address] Care Team Providers Care Chaser Tar Name Role Phone Thang Diana [place] [facility] Unavailable Rain Galaviz PA-C Unavailable Tavia Wyatt MD Unavailable Unavailable Erica Farrell APRN FOOD ADVISER Unavailable Rich Barrett MD Unavailable Neil Kent MD Unavailable Diana Desir Stanislav [facility] Unavailable [phone] Livan Sharif MD Unavailable Catherine Cm MD Unavailable + Valery Veronica PA-C Unavailable [phone] Brea Quinn FELTING MACHINE OPERATOR FOOD ADVISER Unavailable Brea Quinn FELTING MACHINE OPERATOR FOOD ADVISER Unavailable Jose Francisco Johnson MD Unavailable Alfonso Renteria MD Unavailable + [phone] Esha Grimm PA-C Primary Care Provider [phone] Radha Lomeli FELTING MACHINE OPERATOR FOOD ADVISER Unavailable [phone] Jelena David OD Unavailable Esha GrimmC Unavailable [phone] Valery Veronica-C Unavailable Rey Tay MD Unavailable Duane Rockyanne [place] Unavailable Philip Dumont MD Unavailable Meredith Carrera PA-C Unavailable Neil Kent MD Unavailable Juan Pablo Emmanuel MD Unavailable [phone] Audrey Waite PA-C Unavailable Reason for Visit * Reason Onset Date Comments Letter for School/Work 03/01/2024 Encounter Details Date Type Department Care Team (Late st Contact Info) Description 03/01/[address] [facility] [address] [place] [address] Esha Grimm PA-C [id number] [place] [address] Letter for School/Work Social History Tobacco Use Types Packs/Day Years [...] week 03/10/2023 How often do you attend [facility] or [facility]? 1 to 4 times [...] exercise at this level? 30 min 03/10/2023 [place] Depression Scale Answer Date Recorded [place] Depression Score 5 01/14/2021 Last EPDS Self [...] Telephone Encounter - Anthony Doe PA-C - 03/01/2024 9:14 AM CDT Letter completed and sent to her MyChart. Anthony Doe PA-C on 03/01/2024 at 9:16 AM (covering for Esha Grimm PA-C) * Telephone Encounter - Isabelle Coppola RN - 03/01/2024 8:56 AM CDT Heidi Balbuena calling in. Previous work/school note was sent to patient. Her school is requesting the letter include information stating that the appointments were necessary and needed to be done urgently. They were not able to be pre-scheduled/pre-planned. New letter pended with additional information. Please review. Patient OK with getting letter via [employer]. Isabelle Avendano RN on 03/01/2024 at 9:06 AM documented in this encounter Plan of Treatment Upcoming Encounters Date Type Department Care Team (Late st Contact Info) Description 03/26/2024 11:20 AM CDT Office Visit [facility] Spine and Neurosurgery 1747 [facility] [address] [place] [phone] Ebony Cid, FELTING MACHINE OPERATOR [facility] 500 [place] [address] 03/27/2024 11:00 AM CDT Office Visit [facility] 3305 [facility] [address] [place] [address] Jelena David, [address] [facility] [address] 04/19/2024 2:45 PM CDT Office Visit [facility] 830 [place] [phone] Audrey Waite PA-C 420 [facility] B385, [facility] 603 [place] [address] 05/08/2024 1:30 PM CDT Office Visit [facility] [address] [place] [phone] Lauren Claudio PA-C [address] [place], [place] [phone] Esha Grimm PA-C [address] [place] [phone] 06/21/2024 2:00 PM PROGRAMMER ANALYST HEALTH IT Office Visit [facility] Neurology Clinics [facility] [address] [place] [address] [address] [place] [phone] [place] [address] [place] [address] Johnny Penn MD 4886 [place] [address] Scheduled Procedures Name Priority Associated Diagnoses Date/Ti ok ESOPHAGOGASTRODUODENOSCOPY Eosinophilic esophagitis Esophageal dysphagia documented as of this encounter Visit Diagnoses Not on filedocumented in this encounter Additional Health Concerns Assessment Noted Time PHQ-9 Depression Total Score: 3 02/07/20 24 9:33 AM CDT documented as of this encounter Care Teams Chaser Tar Relationship Specialty Start Date End Date Esha Grimm PA-C [address] [place] [address] PCP - General Family Medicine 05/04/23 Diana Desir, [facility] [address] [place], [place] 03[address] Pharmacist Pharmacist 04/17/21 Rain Galaviz PA-C [address] [place] [address] [address] [place] [address] Physician Data Conversion Analyst Dermatology 04/28/21 Tavia Wyatt MD [address] [place] [address] [address] [place] [address] Dermatology 07/14/21 Erica Farrell APRN FOOD ADVISER [address] [place], [place] [address] Nurse Practitioner Cardiovascular Disease 09/09/21 Rich Barrett MD 516 [facility] [place], [place] 4[address] Physician Ophthalmology 01/21/22 Neil Kent MD 500 [place], [place] 572955 Dermatology 02/24/22 [facility] 3033 [place], [place] 252596 Assigned MTM Pharmacist 04/07/22 Livan Sharif MD [address], [facility] [address] [place], [place] [address] Cardiovascular Disease 05/14/22 Catherine Cm MD 6405 [facility] S [facility] [place], [place] 300[address] Cardiovascular Disease 07/21/22 Valery Veronica, PAUcheC 909 [place], [place] 096325 Physician Data Conversion Analyst Dermatology 07/21/22 Brea Quinn APRN FOOD ADVISER 500 [place], [place] 254765 Nurse Practitioner Dermatology 09/21/22 Brea Quinn APRN FOOD ADVISER 6401 [place] [address] Assigned Surgical Provider 10/09/22 [place] [address] [address] [facility] 300 [place] [address] Assigned Musculoskeletal Provider 10/09/22 Alfonso Renteria MD [address] [facility] 200 [place] [address] Assigned Neuroscience Provider 04/02/23 Radha Lomeli APRN FOOD ADVISER 6405 [facility] [address] [place], [place] 490225 Assigned Heart and Vascular Provider 05/28/23 Jelena David OD [address] [place] [address] MD Ophthalmology 06/15/23 Esha Grimm PA-C [address] [place] [address] Assigned PCP 07/16/23 Valery Veronica PA-C [address] [place] [address] Physician Data Conversion Analyst Dermatology 09/19/23 Rey Tay MD 9 [place], [place] 229395 Gastroenterology 09/20/23 Rocky Zepeda DO [address] [place] [address] 959185 Physician Gastroenterology 09/20/23 Philip Dumont MD [address] [place] [address] 923185 Physician Ophthalmology 09/22/23 Meredith Carrera PA-C [address] [place] [address] [id number] Assigned Gastroenterology Provider 11/01/23 Neil Kent MD [address] [address] Dermatology 11/02/23 [place] [address] [address] Neurological Surgery 12/26/23 Audrey Waite PA-C [address] [place] [address] 43799455 Physician Data Conversion Analyst Dermatology 02/28/24 documented as of this encounter
--- OUTSIDE RECORDS SUMMARY | 2024-03-12 19:30 | XMS_ITS | Encounter Summary ---
Author Organization [facility] Address [address] [place] [address] Care Team Providers Care Chin Strap Cutter Name Role Phone Thang Diana [place] [facility] Unavailable Rain Galaviz PA-C Unavailable Tavia Wyatt MD Unavailable Unavailable Erica Farrell APRN MANAGER CASH Unavailable Rich Barrett MD Unavailable Neil Kent MD Unavailable Diana Desir Stanislav [facility] Unavailable [phone] Livan Sharif MD Unavailable Catherine Cm MD Unavailable + Valery Veronica PA-C Unavailable [phone] Brea Quinn LEAF SORTER MANAGER CASH Unavailable Brea Quinn LEAF SORTER MANAGER CASH Unavailable Jose Francisco Johnson MD Unavailable Alfonso Renteria MD Unavailable + [phone] Esha Grimm PA-C Primary Care Provider Radha Lomeli LEAF SORTER MANAGER CASH Unavailable Jelena David OD Unavailable Alfa Esha M PA-C Unavailable [phone] Valery Veronica PA-C Unavailable Rey Tay MD Unavailable Rocky Zepeda DO Unavailable Philip Dumont MD Unavailable Meredith Carrera PA-C Unavailable [phone] Neil Kent MD Unavailable Juan Pbalo Emmanuel MD Unavailable Audrey Waite PA-C Unavailable Reason for Visit * Reason Onset Date Comments Call Back 03/05/2024 Heart monitor fo r 14 or 30 days Encounter Details Date Type Department Care Team (Late st Contact Info) Description 03/05/2024 Telephone [facility] Heart [facility] [address] [employer] [address] [place] [address] Radha Lomeli APRN [facility] [address] [facility] [address] [place], [place] [address] Call Back (Heart monitor for 14 or 30 days ) Social History Tobacco Use Types Packs/Day [...] 03/10/2023 How often do you attend [facility] or protestant services? 1 to 4 times [...] Answer Date Recorded PHQ-2 Score 1 02/07/2024 [facility] [...] exercise at this level? 30 min 03/10/2023 Zapata Depression Scale Answer Date Recorded Zapata Depression Score 5 01/14/2021 Last EPDS Self [...] encounter Miscellaneous Notes * Telephone Encounter - Kaila Green RN - 03/05/2024 2:02 PM CDT Spoke with patient and let her know that we do need to see her in office before we can place ordersfor a heart monitor. Patient verbalized understanding. Kaila Green RN on 03/05/2024 at 2:02 PM * Telephone Encounter - DiegomAalia - 03/05/2024 12:54 PM CDT [facility] Phone Message May a detailed message be left on voicemail: yes Reason for Call: Other: Patient called requesting if orders for either a 14 day or 30 day heart monitor can be placed today, so they can get this scheduled as soon as possible and not have to wait until they are seen tomorrow. Patient stated things have silvina acting up with them on and off where theywould have to call the ambulance to come and do a check to make sure they are not having svt. Please call patient back to further discuss. Action Taken: Other: Cardiology Travel Screening: Not Applicable Thank you! [facility] documented in this encounter Plan of Treatment Upcoming Encounters Date Type Department Care Team (Late st Contact Info) Description 03/26/2024 11:20 AM CDT Office Visit [facility] Spine and Neurosurgery [address] [facility] [address] [place] [address] Ebony Cid, LEAF SORTER MANAGER CASH 500 [place], [place] [address]605 03/27/2024 11:00 AM CDT [facility] Visit [facility] [address] [facility] [address] [place] [address] Jelena David, [address] [place] [address] 04/19/2024 2:45 PM CDT Office Visit [facility] 830 [place] [phone] Audrey Watie PA-C 420 [facility] [address], [facility] 603 [place], [place] [address] 05/08/2024 1:30 PM CDT Office Visit [facility] [address] [place] [address] Lauren Claudio PA-C [address] [place] [address] Esha Grimm PA-C [address] [place] [address] 06/21/2024 2:00 PM SENIOR CHEMIST Office Visit [facility] Neurology Clinics [facility] [address] [facility], [address] [place] [address] [place] [address] [place] [address] Johnny Penn MD [address] [place] [address] Scheduled Procedures Name Priority Associated Diagnoses Date/Ti sc ESOPHAGOGASTRODUODENOSCOPY Eosinophilic esophagitis Esophageal dysphagia documented as of this encounter Visit Diagnoses Not on filedocumented in this encounter Additional Health Concerns Assessment Noted Time PHQ-9 Depression Total Score: 3 02/07/20 24 9:33 AM CDT documented as of this encounter Care Teams Chin Strap Cutter Relationship Specialty Start Date End Date Esha Grimm PA-C [address] [place] [phone] PCP - General Family Medicine 05/04/23 Diana Desir, [facility] 3033 [place] [address] Pharmacist Pharmacist 04/17/21 Rain Galaviz PA-C [address] [place] [address] [address] [place] [address] Physician Fast Food Services Manager Dermatology 04/28/21 Tavia Wyatt MD [address] [place] [address] [address] [place] [address] Dermatology 07/14/21 Erica Farrell APRN MANAGER CASH [address] [place], [place] [address] Nurse Practitioner Cardiovascular Disease 09/09/21 Rich Barrett MD 516 [facility], [facility] 9A [place], [place] [address] Physician Ophthalmology 01/21/22 Neil Kent MD 500 [place], [place] 114965 Dermatology 02/24/22 Diana Desir, [facility] 3033 [place], [place] [address] Assigned [facility] Pharmacist 04/07/22 Livan Sharif MD [address], [facility]00 [place], [place] 4[address] Cardiovascular Disease 05/14/22 Catherine Cm MD 6405 [facility] [address] [address] Cardiovascular Disease 07/21/22 Valery Veronica, PA-C [address] [place] [address]305 Physician Fast Food Services Manager Dermatology 07/21/22 Brea Quinn APRN MANAGER CASH 500 [place], [place] 359135 Nurse Practitioner Dermatology 09/21/22 Brea Quinn APRN MANAGER CASH [address] [place] [address] [place] [id number] [phone] Assigned Surgical Provider 10/09/22 [place] [address] [facility] 300 [place] [address] Assigned Musculoskeletal Provider 10/09/22 Alfonso Renteria MD [address] [facility] 200 [place] [address] Assigned Neuroscience Provider 04/02/23 Radha Lomeli APRN MANAGER CASH [address] [place] [id number] Assigned Heart and Vascular Provider 05/28/23 Jelena David OD [address] [place] [address] Ophthalmology 06/15/23 Esha Grimm PA-C [address] [place] [address] Assigned PCP 07/16/23 Valery Veronica PA-C [address] [place] [address] Physician Fast Food Services Manager Dermatology 09/19/23 Rey Tay MD [address] [place] [address] 566375 Gastroenterology 09/20/23 Rocky Zepeda DO [address] [place] [address] 792645 Physician Gastroenterology 09/20/23 Philip Dumont MD 516 [place], [place] 370545 Physician Ophthalmology 09/22/23 Meredith Carrera PA-C [address] [place] [address]19545 Assigned Gastroenterology Provider 11/01/23 Neil Kent MD [address] 076730 MD Dermatology 11/02/23 [place] [address] [place], [place] [address] Neurological Surgery 12/26/23 Audrey Waite PA-C 500 [place], [place] [address] Physician Fast Food Services Manager Dermatology 02/28/24 documented as of this encounter
--- OUTSIDE RECORDS SUMMARY | 2024-03-12 19:30 | XMS_ITS | Encounter Summary ---
Author Organization [facility] Address [address] [place] [address] Care Team Providers Care Credentialing Manager Name Role Phone Thang Diana [place] [facility] Unavailable Rain Galaviz PA-C Unavailable Tavia Wyatt MD Unavailable Unavailable Erica Farrell APRN [employer] Unavailable Rich Barrett MD Unavailable Neil Kent MD Unavailable Diana Desir Stanislav [facility] Unavailable [phone] Livan Sharif MD Unavailable Catherine Cm MD Unavailable + Valery Veronica PA-C Unavailable [phone] Brea Quinn CORK WIRER [employer] Unavailable Brea Quinn CORK WIRER [employer] Unavailable Jose Francisco Johnson MD Unavailable Alfonso Renteria MD Unavailable + [phone] Esha Grimm PA-C Primary Care Provider Radha Lomeli CORK WIRER [employer] Unavailable [phone] Jelena David OD Unavailable [phone] Esha Grimm PA-C Unavailable [phone] Valery Veronica PA-C Unavailable [phone] Rey Tay MD Unavailable Rocky Zepeda DO Unavailable Philip Dumont MD Unavailable [phone] Meredith Carrera PA-C Unavailable Neil Kent MD Unavailable Juan Pablo Emmanuel MD Unavailable Audrey Waite PA-C Unavailable [phone] Encounter Details Date Type Department Care Team (Late st Contact Info) Description 02/27/2024 MyC Medical Advice [facility] Spine and Neurosurgery [address] [place] [address] Ebony Cid APRN PEGGER DO[employer] LOOMS 500 [place] [address] Social History Tobacco Use Types [...] Answer Date Recorded PHQ-2 Score 1 02/07/2024 [facility] Occupat ional Health - Occupational [...] exercise at this level? 30 min 03/10/2023 Kennett Depression Scale Answer Date Recorded Kennett Depression Score 5 01/14/2021 Last EPDS Self [...] Description 03/26/2024 11:20 AM CDT Office Visit [facility] Spine and Neurosurgery 1747 [facility] 100 [place] [address] Ebony Cid, ARLENE [employer]OMS 500 [place] [address] 03/27/2024 11:00 AM CDT Office [facility] [place] 3305 [facility] [address] [place] [phone] Jelena David, SONJA 3305 [facility] [place] [address] 04/19/2024 2:45 PM CDT Office Visit [facility] 830 [place] [address] Audrey Waite PA-C 420 [facility] [address], [facility] 603 [place], [place] [address] 05/08/2024 1:30 PM CDT Office Visit [facility] [address] [place] [address] Lauren Claudio PA-C [address] [place] [address] Esha Grimm PA-C [address] [place] [address] 06/21/2024 2:00 PM COVER OPERATOR Office Visit [facility] Neurology [facility] - [address], [address] [place] [address] [place] [address] [address] Johnny Penn MD 6545 [place] [address] Scheduled Procedures Name Priority Associated Diagnoses Date/Ti oh ESOPHAGOGASTRODUODENOSCOPY Eosinophilic esophagitis Esophageal dysphagia documented as of this encounter Visit Diagnoses Not on filedocumented in this encounter Additional Health Concerns Assessment Noted Time PHQ-9 Depression Total Score: 3 02/07/20 24 9:33 AM CDT documented as of this encounter Care Teams Credentialing Manager Relationship Specialty Start Date End Date Esha Grimm PA-C [id number] [place] [address] PCP - General Family Medicine 05/04/23 Diana Desir, [facility] 3033 [place] [address] Pharmacist Pharmacist 04/17/21 Rain Galaviz PA-C [address] [place] [address] [address] [place] [address] Physician Hard Metals Hand Engraver Dermatology 04/28/21 Tavia Wyatt MD [address] [place] [address] [place] [address] Dermatology 07/14/21 Erica Farrell APRN [facility] [employer] [address] [place] [address] Nurse Practitioner Cardiovascular Disease 09/09/21 Rich Barrett MD [address] [place] [address] 9A [place], [place] 152895 Physician Ophthalmology 01/21/22 Neil Kent MD 500 [place], [place] [address]365 Dermatology 02/24/22 Diana Desir, [facility] [address] [place] [address] Assigned MTM Pharmacist 04/07/22 Livan Sharif MD [address] [place] [address] Cardiovascular Disease 05/14/22 Catherine Cm MD [address] [place] [address] Cardiovascular Disease 07/21/22 Valery Veronica PA-C 909 [place] [address] Physician Hard Metals Hand Engraver Dermatology 07/21/22 Brea Quinn APRN [facility] [employer] 500 [place] [address] Nurse Practitioner Dermatology 09/21/22 Brea Quinn APRN PEGGER DOBBY LOOMS [facility]1 [place], [place] 697422 Assigned Surgical Provider 10/09/22 [place] [address] [address] [place] [address] Assigned Musculoskeletal Provider 10/09/22 Alfonso Renteria MD [address] [facility] 200 [place], [place] [address] Assigned Neuroscience Provider 04/02/23 Radha Lomeli APRN [facility] 6[address] [facility] [address] [place] [address] Assigned Heart and Vascular Provider 05/28/23 Jelena David OD [address] [facility] [place] [address] Ophthalmology 06/15/23 Esha Grimm PA-C [address] [place] [address] Assigned PCP 07/16/23 Valery Veronica PA-C 9 [place] [address] Physician Hard Metals Hand Engraver Dermatology 09/19/23 Rey Tay MD [address] [place] [address] MD Gastroenterology 09/20/23 Rocky Zepeda DO 500 [place] [address] Physician Gastroenterology 09/20/23 Philip Dumont MD [address] [place] [address] Physician Ophthalmology 09/22/23 Meredith Carrera PA-C [address] [place] [address] Assigned Gastroenterology Provider 11/01/23 Neil Kent MD [address] [address] Dermatology 11/02/23 [place] [address] [address] Neurological Surgery 12/26/23 Audrey Waite PA-C [address] [place] [address] Physician Hard Metals Hand Engraver Dermatology 02/28/24 documented as of this encounter
--- OUTSIDE RECORDS SUMMARY | 2024-03-12 19:30 | XMS_ITS | Encounter Summary ---
Author Organization [facility] Address [address] [place] [address] Care Team Providers Care Hot Molder Name Role Phone Thang Diana [place] [facility] Unavailable [phone] Rain Galaviz PA-C Unavailable Tavia Wyatt MD Unavailable Unavailable Erica Farrell APRN ASSISTANT HAIRSTYLIST Unavailable Rich Barrett MD Unavailable Neil Kent MD Unavailable Diana Desir Stanislav [facility] Unavailable [phone] Livan Sharif MD Unavailable Catherine Cm MD Unavailable + Valery Veronica PA-C Unavailable [phone] Brea Quinn SEISMOGRAPH OPERATOR HELPER ASSISTANT HAIRSTYLIST Unavailable Brea Quinn SEISMOGRAPH OPERATOR HELPER ASSISTANT HAIRSTYLIST Unavailable Jose Francisco Johnson MD Unavailable Alfonso Renteria MD Unavailable + [phone] Esha Grimm PA-C Primary Care Provider [phone] Radha Lomeli SEISMOGRAPH OPERATOR HELPER ASSISTANT HAIRSTYLIST Unavailable [phone] FrankieJelena OD Unavailable [phone] AlfaWicholincoln Medina PA-C Unavailable [phone] Valery Veronica PA-C Unavailable Rey Tay MD Unavailable Duane Rockyanne [facility] Unavailable Philip Dumont MD Unavailable [phone] Meredith Carrera PA-C Unavailable Neil Kent MD Unavailable Juan Pablo Emmanuel MD Unavailable [phone] Audrey Waite PA-C Unavailable [phone] Reason for Visit * Reason Onset Date Comments Pt. Information/instruction 02/28/2024 EGD Encounter Details Date Type Department Care Team ([facility] Contact Info) Description 02/28/2024 Telephone [facility] Endoscopy 500 [place] [address] Annabelle Wetzel, VJ Pt. Information/instruction (EGD ) Social History Tobacco Use Types Packs/Day [...] often do you attend chur ch or jew services? 1 to 4 times [...] Answer Date Recorded PHQ-2 Score 1 02/07/2024 [facility] of Occupat ional Health [...] exercise at this level? 30 min 03/10/2023 Ada Depression Scale Answer Date Recorded Ada Depression Score 5 01/14/2021 Last EPDS Self [...] encounter Miscellaneous Notes * Telephone Encounter - Annabelle Wetzel RN - 03/01/2024 10:04 AM CDT Second call attempt to complete pre assessment. No answer. Left message to return call to [phone] #4 by next day prior to 4PM or procedure will be sent to cancel. Callback required communication sent via PaxVax. Annabelle Wetzel RN Endoscopy Procedure Pre Assessment * Telephone Encounter - Rain Burnette RN - 02/28/2024 4:04 PM CDT Attempted to contact patient in order to complete pre assessment questions. Patient scheduled for Upper endoscopy (EGD) on 03/07/24 No answer. Left message to return call to [phone] option 4 Callback required communication sent via PaxVax. Rain Burnette RN Endoscopy Procedure Pre Assessment * Telephone Encounter - Annabelle Wetzel RN - 02/28/2024 3:48 PM CDT Pre visit planning completed. Procedure details: Patient scheduled for Upper endoscopy (EGD) on 03/07/24. Arrival time: 0800. Procedure time 0900 Facility location: [facility]; [address] [place] [address], 5th Floor, [place] [address]. Check in location: 5th Floor. Sedation type: MAC Pre op exam needed? No. Indication for procedure: EOE, dysphagia Chart review: Electronic implanted devices? No Recent diagnosis of diverticulitis within the last 6 weeks? N/A Medication review: Diabetic? No Anticoagulants? No Weight loss medication/injectable? No GLP-1 medication per patient's medication list. RN will verify with pre-assessment call. NSAIDS? No NSAID medications per patient's medication list. RN will verify with pre-assessment call. Other medication HOLDING recommendations: N/A Prep for procedure: Prep instructions sent via Pax[employer]ax Annabelle Wetzel RN Endoscopy Procedure Pre plating technician [phone] option 4 documented in this encounter Plan of Treatment Upcoming Encounters Date Type Department Care Team (Late st Contact Info) Description 03/26/2024 11:20 AM CDT Office Visit [facility] Spine and Neurosurgery 1747 [facility] 100 [place] [address] Ebony Cid, SEISMOGRAPH OPERATOR HELPER ASSISTANT HAIRSTYLIST 500 [place] [address] 03/27/2024 11:00 AM CDT Office Visit [facility] [address] [facility] [address] [place] [phone] Jelena David, OD 3305 [facility] [place] [address] 04/19/2024 2:45 PM CDT Office Visit [facility] 830 [place] [address] Audrey Waite PA-C 420 [facility] [address], [facility] 603 [place], [place] [address] 05/08/2024 1:30 PM CDT Office Visit [facility] [address] [place] [address] Lauren Claudio PA-C [address] [place] [address] Esha Grimm PA-C [id number] [place] [address] 06/21/2024 2:00 PM WAREHOUSE DRIVER Office Visit [facility] Neu[facility] - [address], [address] [place] [address] [place] [address] [place] [address] Johnny Penn MD 6545 [place] [address] Scheduled Procedures Name Priority Associated Diagnoses Date/Ti sd ESOPHAGOGASTRODUODENOSCOPY Eosinophilic esophagitis Esophageal dysphagia documented as of this encounter Visit Diagnoses Not on filedocumented in this encounter Additional Health Concerns Assessment Noted Time PHQ-9 Depression Total Score: 3 02/07/20 24 9:33 AM CDT documented as of this encounter Care Teams Hot Molder Relationship Specialty Start Date End Date Esha Grimm PA-C [id number] [place] [address] PCP - General Family Medicine 05/04/23 Diana Desir, [facility] 3033 [place] [address] Pharmacist Pharmacist 04/17/21 Rain Galaviz PA-C [address] [place] [address] [address] [place] [address] Physician Slag Worker Dermatology 04/28/21 Tavia Wyatt MD [address] [place] [address] [address] [place] [address] Dermatology 07/14/21 Erica Farrell APRN ASSISTANT HAIRSTYLIST [address] [place], [place] [address] Nurse Practitioner Cardiovascular Disease 09/09/21 Rich Barrett MD [address] [place] [address] 9[address] [place], [place] [address] Physician Ophthalmology 01/21/22 Neil Kent MD 500 [place] [address] Dermatology 02/24/22 Diana Desir, [facility] 3033 [place] [address] Assigned MTM Pharmacist 04/07/22 Livan Sharif MD [address] [facility] [address] [place] [address] Cardiovascular Disease 05/14/22 Catherine Cm MD 6401 [facility] [address] [place] [address] Cardiovascular Disease 07/21/22 Valery Veronica PA-C 909 [place] [address] Physician Slag Worker Dermatology 07/21/22 Brea Quinn APRN ASSISTANT HAIRSTYLIST 500 [place] [address] Nurse Practitioner Dermatology 09/21/22 Brea Quinn APRN ASSISTANT HAIRSTYLIST [address] [place] [address] Assigned Surgical Provider 10/09/22 [place] [address] [facility] 300 [place] [address] Assigned Musculoskeletal Provider 10/09/22 Alfonso Renteria MD 5775 [facility] 200 [place], [place] [address] Assigned Neuroscience Provider 04/02/23 Radha Lomeli APRN ASSISTANT HAIRSTYLIST 6405 [facility] [address] [place] [address] Assigned Heart and Vascular Provider 05/28/23 Jelena David OD [address] [facility] [place] [address] Ophthalmology 06/15/23 Esha Grimm PA-C [address] [place] [address] Assigned PCP 07/16/23 Valery Veronica PA-C 9 [place] [address] Physician Slag Worker Dermatology 09/19/23 Rey Tay MD [address] [place] [address] MD Gastroenterology 09/20/23 Rocky Zepeda DO [address] [place] [address] 308265 Physician Gastroenterology 09/20/23 Philip Dumont MD [address] [place] [address] 889675 Physician Ophthalmology 09/22/23 Meredith Carrera PA-C [address] [place] [address] 378295 Assigned Gastroenterology Provider 11/01/23 Neil Kent MD [address] [address] Dermatology 11/02/23 [place] [address] [place], [place] [address] Neurological Surgery 12/26/23 Audrey Waite PA-C [address] [place] [address] 717445 Physician Slag Worker Dermatology 02/28/24 documented as of this encounter
--- OUTSIDE RECORDS SUMMARY | 2024-03-12 19:30 | XMS_ITS | Encounter Summary ---
Author Organization [place] Address [address] [place] [address] Care Team Providers Care Direct Casting Operator Name Role Phone Thang Diana [place] [facility] Unavailable [phone] Rain Galaviz PA-C Unavailable Tavia Wyatt MD Unavailable Unavailable Erica Farrell APRN CUTTER WET MACHINE Unavailable Rich Barrett MD Unavailable Neil Kent MD Unavailable Diana Desir Stanislav [facility] Unavailable [phone] Livan Sharif MD Unavailable Catherine Cm MD Unavailable + Valery Veronica PA-C Unavailable [phone] Brea Quinn JOB CHANGE CREW MEMBER CUTTER WET MACHINE Unavailable Brea Quinn JOB CHANGE CREW MEMBER CUTTER WET MACHINE Unavailable [phone] Jose Francisco Johnson MD Unavailable Alfonso Renteria MD Unavailable + [phone] Esha Grimm PA-C Primary Care Provider Radha Lomeli JOB CHANGE CREW MEMBER CUTTER WET MACHINE Unavailable [phone] Jelena David OD Unavailable Esha Grimm PA-C Unavailable [phone] Valery Veronica PA-C Unavailable [phone] Rey Tay MD Unavailable Rocky Zepeda DO Unavailable Philip Dumont MD Unavailable Meredith Carrera PA-C Unavailable Neil Kent MD Unavailable Juan Pablo Emmanuel MD Unavailable [phone] Audrey Waite PA-C Unavailable Encounter Details Date Type Department Care Team (Late st Contact Info) Description 03/06/2024 MyC Medical Advice [facility] Spine and Neurosurgery [address] [place] [address] Ebony Cid APRN [facility] [address] [place] [address] Social History Tobacco Use Types [...] Answer Date Recorded PHQ-2 Score 1 02/07/2024 [facility] [place] of Occupat ional Health - Occupational Stress [...] exercise at this level? 30 min 03/10/2023 [place] Depression Scale Answer Date Recorded [place] Depression Score 5 01/14/2021 Last EPDS Self [...] Visit [facility] 1747 [facility] 100 [place] [address] Ebony Cid APRN [facility] [address] [place] [address] 03/27/2024 11:00 AM CDT Office Visit [facility] [address] [facility] [address] [place] [phone] Jelena David, [address] [facility] [place] [address] 04/19/2024 2:45 PM CDT Office Visit [address] [phone] Audrey Waite PA-C [address], [facility] 603 [place] [address] 05/08/2024 1:30 PM CDT Office Visit [facility] [address] [place] [address] Lauren Claudio PA-C [address] [place] [address] Esha Grimm PA-C [address] [place] [address] 06/21/2024 2:00 PM SUPERVISOR [employer] Office Visit [facility] Neurology [facility] [address] [place] [address], [address] [place] [address] [place] [address] [address] Johnny Penn MD 6545 [place] [address] Scheduled Procedures Name Priority Associated Diagnoses Date/Ti ma ESOPHAGOGASTRODUODENOSCOPY Eosinophilic esophagitis Esophageal dysphagia documented as of this encounter Visit Diagnoses Not on filedocumented in this encounter Additional Health Concerns Assessment Noted Time PHQ-9 Depression Total Score: 3 02/07/20 24 9:33 AM CDT documented as of this encounter Care Teams Direct Casting Operator Relationship Specialty Start Date End Date Esha Grimm PA-C [id number] [place] [address] PCP - General Family Medicine 05/04/23 Diana Desir, [facility] 3033 [place] [address] Pharmacist Pharmacist 04/17/21 Rain Galaviz PA-C [address] [place] [address] [address] [place] [address] Physician Personal Care Attendant Dermatology 04/28/21 Tavia Wyatt MD [address] [place] [address] [facility] [address] Dermatology 07/14/21 Erica Farrell APRN CUTTER WET MACHINE [address] [place] [address] Nurse Practitioner Cardiovascular Disease 09/09/21 Rich Barrett MD [address] [place] [address] [address] [place] [address] Physician Ophthalmology 01/21/22 Neil Kent MD [address] [place], [place] [phone] Dermatology 02/24/22 Diana Desir, [facility] [address] [place] [address] Assigned MTM Pharmacist 04/07/22 Livan Sharif MD [address] [place] [id number] Cardiovascular Disease 05/14/22 Catherine Cm MD [address] [place] [address] Cardiovascular Disease 07/21/22 Valery Veronica PA-C 909 [place], [place] 7904[address] Physician Personal Care Attendant Dermatology 07/21/22 Brea Quinn APRN CUTTER WET MACHINE [address], [place] 77[address] Nurse Practitioner Dermatology 09/21/22 Brea Quinn APRN CUTTER WET MACHINE 6401 [place], [place] 653842 Assigned Surgical Provider 10/09/22 [place] [address] [address] [facility] 300 [place] [address] Assigned Musculoskeletal Provider 10/09/22 Alfonso Renteria MD [address] [facility] 200 [place], [place] [id number] Assigned Neuroscience Provider 04/02/23 Radha Lomeli APRN CUTTER WET MACHINE [address] [facility] [address] [place] [id number] Assigned Heart and Vascular Provider 05/28/23 Jelena David OD [address] [facility] [place] [address] Ophthalmology 06/15/23 sEha Grimm PA-C [address] [place] [address] Assigned PCP 07/16/23 Valery Veronica PA-C [address] [place] [address] Physician Personal Care Attendant Dermatology 09/19/23 Rey Tay MD [address] [place] [address] Gastroenterology 09/20/23 Rocky Zepeda DO [address] [place] [address] Physician Gastroenterology 09/20/23 Philip Dumont MD [address] [place] [address] Physician Ophthalmology 09/22/23 Meredith Carrera PA-C [address] [place] [address] Assigned Gastroenterology Provider 11/01/23 Neil Kent MD [address] [address] Dermatology 11/02/23 [place] [address] [address] Neurological Surgery 12/26/23 Audrey Waite PA-C [address] [place] [address] Physician Personal Care Attendant Dermatology 02/28/24 documented as of this encounter
--- OUTSIDE RECORDS SUMMARY | 2024-03-12 19:30 | XMS_ITS | Encounter Summary ---
Author Organization [place] Address [address] [place] [address] Care Team Providers Care Disk Recoater Name Role Phone Thang Diana Mayers [facility] Unavailable Rain Galaviz PA-C Unavailable Tavia Wyatt MD Unavailable Unavailable Erica Farrell APRN DIRECTOR SALES Unavailable Rich Barrett MD Unavailable Neil Kent MD Unavailable Diana Desir Stanislav [facility] Unavailable [phone] Livan Sharif MD Unavailable Catherine Cm MD Unavailable + Valery Veronica PA-C Unavailable [phone] Brea Quinn RISK ANALYST DIRECTOR SALES Unavailable Brea Quinn RISK ANALYST DIRECTOR SALES Unavailable Jose Francisco Johnson MD Unavailable Alfonso Renteria MD Unavailable [phone] Esha Grimm PA-C Primary Care Provider Radha Lomeli RISK ANALYST DIRECTOR SALES Unavailable [phone] Jelena David OD Unavailable Wicho Grimmlincoln Medina PA-C Unavailable [phone] Valery Veronica PA-C Unavailable [place] Tay MD Unavailable Rocky Zepeda Unavailable Philip Dumont MD Unavailable Meredith Carrera PA-C Unavailable Neil Kent MD Unavailable Juan Pablo Emmanuel MD Unavailable Audrey Waite PA-C Unavailable Reason for Referral * CV Testing (Routine) - Pending Review Specialty Diagnoses / Procedures Referred By Qian mayers Referred To Contact Diagnoses Palpitations Procedures ZIO PATCH 8-14 DAYS (additional cost to patient) Radha Lomeli APRN DIRECTOR SALES [address] [place] [address] Referral ID Status Reason Start Date Expiration Date V isits Requested Visits Authorized [id number] Pending Review 03/06/2024 03/06/2025 1 1 Reason for Visit * Reason Comments Tachycardia SVT Encounter Details Date Type Department Care Team (Late st Contact Info) Description 03/06/2024 3:00 PM CDT Office Visit [facility] [address] [place] [address] [address] [place] [address] Radha Lomeli APRN DIRECTOR SALES [address] [place] [id number] SVT (supraventricular tachycardia) (H24) (Primary Dx); Palpitations Social History Tobacco Use Types Packs/Day Years [...] Answer Date Recorded PHQ-2 Score 1 02/07/2024 [facility] - Occupational Stress Questionnaire Answer [...] exercise at this level? 30 min 03/10/2023 [place] Depression Scale Answer Date Recorded [place] Depression Score 5 01/14/2021 Last EPDS Self [...] Pulse 68 03/06/2024 2:58 PM CDT Temperature - - Respiratory Rate - - Oxygen Saturation - - Inhaled Oxygen Concentration - - Weight 88 kg (194 lb) 03/06/2024 2:58 PM CDT Height 167.6 cm (5' 6) 03/06/2024 2:58 PM CDT Body Mass Index 31.31 03/06/2024 2:58 PM CDT documented in this encounter Progress Notes * Radha Lomeli, ARLENE DIRECTOR SALES - 03/06/2024 3:00 PM CDT HISTORY OF PRESENT ILLNESS: This is a 23 year old female who follows with Dr Sharif/Toi at [facility] Her past medical history includes: SVT, seizure disorder, anxiety/depression, remote smoker, eosinophilic esophagitis, hiatal hernia Ms Alex developed heart racing and was seen in the ED several times during her (2017) EKGs showed sinus rhythm ECHO showed normal biventricular function, no significant valvular pathologyA follow up Ziopatch monitor showed at least one episode of SVT that had a clear sudden onset She was placed on Metoprolol then. Due to recurrent symptoms, she eventually underwent AVNRT ablation (08/2021) Since then, she has continued to complain of heart racing episodes Several event monitors in 2021 showed sinus rhythm/sinus tachycardia, rare ectopies, brief nonsustained SVT, up to 14 seconds, but rate barely over 100 bpm. ECHO (03/2022) showed LVEF 55%, normal RV function, no valve disease Exercise stress test (06/2022) showed that she reached 91% of her maximum predicted heart rate, andexercised for 12 minutes No evidence of stress-induced ischemia. She was seen several times in 2022 for chest pain and palpitations Workup has been fairly unremarkable At one visit her symptoms improved with IVFs, questioning a component of volume depletion 3-day ziopatch monitor (03/2023) showed sinus rhythm with average HR 78 bpm, rare PACs Her symptoms correlated with sinus 30-day event monitor (03/2023) showed sinus rhythm / sinus tachycardia Symptoms described as heart racing, shortness of breath, chest pain ECHO (05/2023) showed LVEF 60%, no significant valvular pathology She has been seen multiple times over the past few months for palpitations and shortness of breath EKGs have shown sinus rhythm and benign labs She was diagnosed with eosinophilic esophagitis, gastritis, and hiatal hernia (09/2023) Our visit today is for further review. Ms Johnson states that she recently has been experiencing some chest heaviness, which is not relatedto exertion. 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) Subjective Palpitations: -no clear evidence of symptom correlation with ectopic beats or other rhythm abnormalities on 4 separate leadless cardiac monitoring -structurally normal heart per ECHO and normal stress echo (03/2022) -Low dose Metoprolol has helped -recent complaints of atypical chest pressure that she thinks may be related to more palpitations -will arrange 14-day ZioPatch montior Seizure Disorder Anxiety/depression The total time for the visit today was 28 minutes which includes patient visit, reviewing of records, discussion, and placing of orders of the outpatient coordination of cardiovascular care as described. The level of medical decision making during this visit was of moderate complexity. Thank you for allowing me to participate in their care. The longitudinal plan of care for the diagnosis(es)/condition(s) as documented were addressed during this visit. Due to the added complexity in care, I will continue to support Kim in the subsequent management and with ongoing continuity of care. Orders Placed This Encounter Procedures ZIO PATCH 8-14 DAYS APPLICATION ZIO PATCH 8-14 DAYS (additional cost to patient) No orders of the defined types were placed in this encounter. There are no discontinued medications. Encounter Diagnoses Name Primary? SVT (supraventricular tachycardia) (H24) Yes Palpitations CURRENT MEDICATIONS: Current Outpatient Medications Medication [...] (12.5 mg) by mouth daily 45tablet 1 metroNIDAZOLE (FLAGYL) 500 MG tablet Take 1 tablet (500 mg) by mouth 2 times daily for 7 days 14 tablet 0 Multiple Vitamin (MULTIVITAMIN ADULT PO) omeprazole (PRILOSEC) [...] until healed then stop 80 g 2 ALLERGIES Allergies Allergen Reactions Vancomycin PAST MEDICAL HISTORY: Past Medical History: Diagnosis Date Anxiety Chronic kidney disease stones, history of infections Depressive disorder Gastroesophageal reflux disease Psoriasis Seizure (H) 05/02/2019 no seizure since approx 2018 SVT (supraventricular tachycardia) (H24) PAST SURGICAL HISTORY: Past Surgical History: Procedure Laterality Date EP ABLATION SVT N/A 08/28/2021 Procedure: EP Ablation SVT; Surgeon: Galo Burrell MD; Location: HEART CARDIAC PLODDER OPERATOR ESOPHAGOSCOPY, GASTROSCOPY, DUODENOSCOPY (EGD), COMBINED N/A 06/26/2021 Procedure: ESOPHAGOGASTRODUODENOSCOPY (EGD) (fv); Surgeon: Rey Sheppard MD; Location: GI ESOPHAGOSCOPY, GASTROSCOPY, DUODENOSCOPY (EGD), COMBINED N/A 09/12/2023 Procedure: Esophagoscopy, gastroscopy, duodenoscopy (EGD), combined; Surgeon: Rey Tay MD; Location: GI GENITOURINARY SURGERY kidney FAMILY HISTORY: Family History Problem Relation Age of Onset Heart Disease Maternal Grandfather Brain Tumor Sister Macular Degeneration No family hx of Glaucoma No family hx of SOCIAL HISTORY: Social History Socioeconomic History Marital status: Single Spouse name: None Number of children: None Years of education: None Highest education level: 12th grade Tobacco Use Smoking status: Former Current packs/day: 0.00 Types: Other, Cigarettes Quit date: 12/07/2019 Years since quittin.2 Passive exposure: Past Smokeless tobacco: Current Tobacco comments: vaping Vaping Use Vaping status: Every Day Substances: Nicotine Devices: Disposable Substance and Sexual Activity Alcohol use: Yes Comment: social Drug use: No Sexual activity: Yes Partners: Male control/protection: I.U.D. Social Determinants of Health Financial Resource Strain: [...] 30 min Stress: Stress Concern Present (03/10/2023) [place] of Occupational Health - Occupational Stress Questionnaire Feeling of Stress : To some extent Social Connections: Moderately Isolated (03/10/2023) Social Connection and Isolation Panel [NHANES] Frequency of Communication with Friends and Family: Three times a week Frequency of Social Gatherings with Friends and Family: Twice a week Attends Baptism Services: 1 to 4 times per year Active Member of Clubs or Organizations: No Marital Status: Interpersonal Safety: Low Risk (02/07/2024) Interpersonal Safety Do you feel physically and [...] you worried about losing your housing?: No Review of Systems: Skin: not assessed Eyes: not assessed ENT: not assessed Respiratory: Positive for shortness of breath Cardiovascular: Positive for;palpitations;chest pain;heaviness;lightheadedness heart feels like skipping a beat and pounding, heavy dull chest pain. associates lightheadedness with metoprolol Gastroenterology: not assessed Genitourinary: not assessed Musculoskeletal: not assessed Neurologic: not assessed Psychiatric: not assessed Heme/Lymph/Imm: not assessed Endocrine: not assessed Physical Exam: Vitals: BP 114/78 (BP Location: Right arm, Patient Position: Sitting, Cuff Size: Adult Regular) Pulse 68 Ht 1.676 m (5' 6) Wt 88 kg (194 lb) BMI 31.31 kg/m?? Constitutional: cooperative Skin: warm and dry to the touch Head: normocephalic Eyes: pupils equal and round Lymph: ENT: no pallor or cyanosis Neck: JVP normal;no carotid bruit Respiratory: clear to auscultation;normal respiratory excursion Cardiac: regular rhythm;normal S1 and S2 no presence of murmur pulses full and equal GI: abdomen soft Extremities and Muscular Skeletal: no edema Neurological: no gross motor deficits;affect appropriate Psych: Alert and Oriented x 3 Anxious CC No referring provider defined for this encounter. * Mick David - 03/06/2024 3:00 PM CDT Kim Johnson arrived here on 03/06/2024 3:48 PM for 8-14 Days Zio monitor placement per ordering provider Radha Lomeli for the diagnosis palpitations. Patient???s skin was prepped per protocol. Dr. Pepper the supervising MD. Zio monitor was placed. Instructions were reviewed with and given to the patient. Patient verbalized understanding of wear, troubleshooting and monitor return instructions. documented in this encounter Plan of Treatment Upcoming Encounters Date Type Department Care Team (Late st Contact Info) Description 03/26/2024 11:20 AM CDT Office Visit [facility] Spine and Neurosurgery [address] [facility] [address] [place] [address] Ebony Cid, RISK ANALYST [facility] 500 [place], [place] [address] 03/27/2024 11:00 AM CDT Office Visit [facility] [address] [facility] [address] [place] [address] Jelena David, [address] [facility] [place] [address] 04/19/2024 2:45 PM CDT Office Visit [facility] 830 [place] [address] Audrey Waite PA-C [address] [facility] [address]385, [facility] 603 [place], [place] [address] 05/08/2024 1:30 PM CDT Office Visit [facility] [address] [place] [address] Lauren Claudio PA-C [address] [place] [address] Esha Grimm PA-C [address] [place] [address] 06/21/2024 2:00 PM BIOLOGY DEPARTMENT CHAIR Office Visit [facility] [place] [address] [facility], [address] [place] [address] [place] [address] [place], [place] [phone] Johnny Penn MD [address] [facility] [place] [id number] Scheduled Orders Name Type Priority Associated Diagnoses Orde r Schedule ZIO PATCH 8-14 DAYS APPLICATION Procedures Routine Palpitations Ordered: 03/06/2024 Scheduled Procedures Name Priority Associated Diagnoses Date/Ti me ESOPHAGOGASTRODUODENOSCOPY Eosinophilic esophagitis Esophageal dysphagia documented as of this encounter Procedures Procedure Name Priority Date/Time Associated Diagnosis Comments ZIO PATCH 8-14 DAYS INTERPRETATION Routine 03/06/2024 3:19 PM CDT Palpitations documented in this encounter Visit Diagnoses Diagnosis SVT (supraventricular tachycardia) (H24)- Primary Other specified cardiac dysrhythmias Palpitations documented in this encounter Additional Health Concerns Assessment Noted Time PHQ-9 Depression Total Score: 3 02/07/20 24 9:33 AM CDT documented as of this encounter Care Teams Disk Recoater Relationship Specialty Start Date End Date Esha Grimm PA-C [address] [place] [phone] PCP - General Family Medicine 05/04/23 Diana Desir, [facility] [address] [place] [address] Pharmacist Pharmacist 04/17/21 Rain Galaviz PA-C [address] [place] [address] [address] [facility] [facility] [id number] Physician Meal Attendant Dermatology 04/28/21 Tavia Wyatt MD [address] [place] [address] [address] [facility] [place] [address] Dermatology 07/14/21 Erica Farrell APRN DIRECTOR SALES [address] [place] [address] Nurse Practitioner Cardiovascular Disease 09/09/21 Rich Barrett MD [address] [address]67[address] Physician Ophthalmology 01/21/22 Neil Ketn MD [address] [place] [address]65905 Dermatology 02/24/22 Diana Desir, [facility] [address] [place], [place] [address] Assigned MTM Pharmacist 04/07/22 iLvan Sharif MD [address] [place] [address] Cardiovascular Disease 05/14/22 Catherine Cm MD [address] [facility] [place] [place] [address] Cardiovascular Disease 07/21/22 Valery Veronica, PA-C [address] [place] [address] Physician Meal Attendant Dermatology 07/21/22 Brea Quinn APRN DIRECTOR SALES 500 [place] [address] Nurse Practitioner Dermatology 09/21/22 Brea Quinn APRN DIRECTOR SALES 64[address] [place] [address] Assigned Surgical Provider 10/09/22 [place] [address] [facility] 300 [place] [address] Assigned Musculoskeletal Provider 10/09/22 Alfonso Renteria MD 57[address] [facility] 200 [place], [place] [address] Assigned Neuroscience Provider 04/02/23 Radha Lomeli APRN DIRECTOR SALES [address] [facility] [address] [place] [address] Assigned Heart and Vascular Provider 05/28/23 Jelena David OD [address] [facility] [place] [address] Ophthalmology 06/15/23 Esha Grimm PA-C [address] [place] [address] Assigned PCP 07/16/23 Valery Veronica PA-C [address] [place] [address] 902225 Physician Meal Attendant Dermatology 09/19/23 Rey Tay MD [address] [place] [address] MD Gastroenterology 09/20/23 Rocky Zepeda DO 500 [place] [address] Physician Gastroenterology 09/20/23 Philip Dumont MD [address] [place] [address] Physician Ophthalmology 09/22/23 Meredith Carrera PA-C 909 [place] [address] Assigned Gastroenterology Provider 11/01/23 Neil Kent MD [address] 248[address] Dermatology 11/02/23 [place] [address] [address] [facility] [place], [place] [address]37 Neurological Surgery 12/26/23 Audrey Waite PA-C 500 [place] [address] Physician Meal Attendant Dermatology 02/28/24 documented as of this encounter
--- OUTSIDE RECORDS SUMMARY | 2024-03-12 19:30 | XMS_ITS | Encounter Summary ---
Author Organization [place] Address [address] [place] [address] Care Team Providers Care Solar Designer/Installer Name Role Phone Thang Diana [place] [facility] Unavailable [phone] Rain Galaviz PA-C Unavailable Tavia Wyatt MD Unavailable Unavailable Erica Farrell APRN ORDER CHECKER PACKER PROCESSER Unavailable Rich Barrett MD Unavailable Neil Kent MD Unavailable Diana Desir Stanislav [facility] Unavailable [phone] Livan Sharif MD Unavailable Catherine Cm MD Unavailable + Valery Veronica PA-C Unavailable [phone] Brea Quinn MORTUARY OPERATIONS MANAGER ORDER CHECKER PACKER PROCESSER Unavailable Brea Quinn MORTUARY OPERATIONS MANAGER ORDER CHECKER PACKER PROCESSER Unavailable Jose Francisco Johnson MD Unavailable Alfonso Renteria MD Unavailable + [phone] Esha Grimm PA-C Primary Care Provider Radha Lomeli MORTUARY OPERATIONS MANAGER ORDER CHECKER PACKER PROCESSER Unavailable [phone] Jelena David OD Unavailable Esha GrimmC Unavailable [phone] Valery VeronicaC Unavailable [phone] Rey Tay MD Unavailable Duane Rockyanne STEVENS Unavailable Philip Dumont MD Unavailable [phone] Meredith CarreraC Unavailable [phone] Neil Kent MD Unavailable Juan Pablo Emmanuel MD Unavailable [phone] Encounter Details Date Type Department Care Team (Latest Contact Info) Description 02/27/2024 Travel Social History Tobacco Use Types Packs/Day [...] you attend [facility] or [employer] [facility]? 1 to 4 [...] Answer Date Recorded PHQ-2 Score 1 02/07/2024 [facility] ional [facility] - Occupational Stress Questionnaire Answer Date [...] exercise at this level? 30 min 03/10/2023 [place] Depression Scale Answer Date Recorded [place] Depression Score 5 01/14/2021 Last EPDS Self [...] Description 03/26/2024 11:20 AM CDT Office Visit [facility] Spine and Neurosurgery 1747 [facility] 100 [place] [address] Ebony Cid, MORTUARY OPERATIONS MANAGER [facility] 500 [place], [place] [address] 03/27/2024 11:00 AM CDT Office Visit [facility] [address] [facility] [address] [place] [phone] Jelena David, [address]305 [facility] [place] [address] 04/19/2024 2:45 PM CDT Office Visit [facility] 830 [place] [address] Audrey Waite PA-C [address] [facility] [address], [facility] 603 [place], [place] [address] 05/08/2024 1:30 PM CDT Office Visit [facility] [address] [place] [phone] Lauren Claudio PA-C [id number] [place] [address] [phone] Esha Grimm PA-C [address] [place] [address] 06/21/2024 2:00 PM TELETYPE OPERATOR Office Visit [facility] Neurology [facility] 6545 [facility], [address] [place] [address] [place] [address] [place] [address] Johnny Penn MD 1894 [place], [place] [id number] Scheduled Procedures Name Priority Associated Diagnoses Date/Ti ks ESOPHAGOGASTRODUODENOSCOPY Eosinophilic esophagitis Esophageal dysphagia documented as of this encounter Visit Diagnoses Not on filedocumented in this encounter Additional Health Concerns Assessment Noted Time PHQ-9 Depression Total Score: 3 02/07/20 24 9:33 AM CDT documented as of this encounter Care Teams Solar Designer/Installer Relationship Specialty Start Date End Date Esha Grimm PA-C [address] [place] [address] PCP - General Family Medicine 05/04/23 Diana Desir, [facility] 3033 [place] [address] Pharmacist Pharmacist 04/17/21 Rain Galaviz PA-C [address] [place] [address] [address] [facility] [place] [phone] Physician Grain Elevator Worker Dermatology 04/28/21 Tavia Wyatt MD [address] [facility] [address] [place] [address] Dermatology 07/14/21 Erica Farrell APRN ORDER CHECKER PACKER PROCESSER [address] [place], [place] [address] Nurse Practitioner Cardiovascular Disease 09/09/21 Rich Barrett MD 516 [facility] 9A [place], [place] 724615 Physician Ophthalmology 01/21/22 Neil Kent MD 500 [place], [place] 293605 Dermatology 02/24/22 [facility] 3033 [place], [place] 120236 Assigned MTM Pharmacist 04/07/22 Livan Sharif MD [address] [address] Cardiovascular Disease 05/14/22 Catherine Cm MD [address] 752795 Cardiovascular Disease 07/21/22 Valery Veronica, PA-C [address] [place] [address] 252355 Physician Grain Elevator Worker Dermatology 07/21/22 Brea Quinn APRN ORDER CHECKER PACKER PROCESSER 500 [place], [place] [id number] Nurse Practitioner Dermatology 09/21/22 Brea Quinn APRN ORDER CHECKER PACKER PROCESSER 6401 [place] [address] Assigned Surgical Provider 10/09/22 [place] [address] [address] [facility] 300 [place] [address] Assigned Musculoskeletal Provider 10/09/22 Alfonso Renteria MD 5775 [facility] 200 [place], [place] 423096 Assigned Neuroscience Provider 04/02/23 Radha Lomeli APRN ORDER CHECKER PACKER PROCESSER [address] [place] [id number] [place] [address] Assigned Heart and Vascular Provider 05/28/23 Jelena David OD [address] [place] [address] Ophthalmology 06/15/23 Esha Grimm PA-C [address] [place] [address] Assigned PCP 07/16/23 Valery Veronica PA-C [address] [place] [address]235 Physician Grain Elevator Worker Dermatology 09/19/23 Rey Tay MD 9 [place], [place] 551705 Gastroenterology 09/20/23 Rocky Zepeda DO [address] [place] [address] 356905 Physician Gastroenterology 09/20/23 Philip Dumont MD [address] [place] [address] 792975 Physician Ophthalmology 09/22/23 Meredith Carrera PA-C [address] [place] [address] 439795 Assigned Gastroenterology Provider 11/01/23 Neil Kent MD [address] 9357[address] Dermatology 11/02/23 [place] [address] [address] [facility] [place], [place] 324517 Neurological Surgery 12/26/23 documented as of this encounter
--- OUTSIDE RECORDS SUMMARY | 2024-03-12 19:30 | XMS_ITS | Encounter Summary ---
Author Organization [place] Address [address] [place] [address] Care Team Providers Care Dental Assistant Instructor Name Role Phone Thang Diana [place] [facility] Unavailable [phone] Rain Galaviz PA-C Unavailable Tavia Wyatt MD Unavailable Unavailable Erica Farrell APRN COMPOSITION PROFESSOR Unavailable Rich Barrett MD Unavailable Neil Kent MD Unavailable Diana Desir Stanislav [facility] Unavailable [phone] Livan Sharif MD Unavailable Catherine Cm MD Unavailable + Valery Veronica PA-C Unavailable [phone] Brea Quinn DOOR LINER COMPOSITION PROFESSOR Unavailable Brea Quinn DOOR LINER COMPOSITION PROFESSOR Unavailable Jose Francisco Johnson MD Unavailable Alfonso Renteria MD Unavailable + [phone] Esha Grimm PA-C Primary Care Provider Radha Lomeli DOOR LINER COMPOSITION PROFESSOR Unavailable [phone] Jelena David OD Unavailable Esha Grimm PA-C Unavailable [phone] Valery Veronica PA-C Unavailable [phone] Rey Tay MD Unavailable Rocky Zepeda DO Unavailable Philip Dumont MD Unavailable [phone] Meredith Carrera PA-C Unavailable [phone] Neil Kent MD Unavailable Juan Pablo Emmanuel MD Unavailable [phone] Audrey Waite PA-C Unavailable [phone] Encounter Details Date Type Department Care Team (Late st Contact Info) Description 02/28/2024 MyC Medical Advice [facility] Gastroenterology Clinic [address] [phone] Rain Burnette, RN Social History Tobacco Use Types Packs/Day [...] Answer Date Recorded PHQ-2 Score 1 02/07/2024 [facility] - Occupational Stress Questionnaire [...] exercise at this level? 30 min 03/10/2023 [place] Depression Scale Answer Date Recorded [place] Depression Score 5 01/14/2021 Last EPDS Self [...] [facility] 1747 [facility] 100 [place] [address] Ebony Cid, ARLENE COMPOSITION PROFESSOR 500 [place], [place] 3005[address] 03/27/2024 11:00 AM CDT Office Visit [facility] [place] 3305 [facility] [address] [place] [phone] Jelena David, 3305 [facility] [place] [address] 04/19/2024 2:45 PM CDT Office Visit [facility] 830 [place] [address] Audrey Waite PA-C 420 [facility] [address], [facility] 603 [place], [place] [address]145 05/08/2024 1:30 PM CDT Office Visit [facility] [address] [place] [address] Lauren Claudio PA-C [address] [place] [address] Esha Grimm PA-C [address] [place] [address] 06/21/2024 2:00 PM CUSHION COVER INSPECTOR Office Visit [facility] Neurology [address], [address] [place] [address] [place] [address] [place] [address] Johnny Penn MD 6545 [place] [address] Scheduled Procedures Name Priority Associated Diagnoses Date/Ti mo ESOPHAGOGASTRODUODENOSCOPY Eosinophilic esophagitis Esophageal dysphagia documented as of this encounter Visit Diagnoses Not on filedocumented in this encounter Additional Health Concerns Assessment Noted Time PHQ-9 Depression Total Score: 3 02/07/20 24 9:33 AM CDT documented as of this encounter Care Teams Dental Assistant Instructor Relationship Specialty Start Date End Date Esha Grimm PA-C [id number] [place] [address] PCP - General Family Medicine 05/04/23 Diana Desir, [facility] [address] [place], [place] 893496 Pharmacist Pharmacist 04/17/21 Rain Galaviz PA-C [address] [place] [address] [address] [place] [address] Physician Edge Stripper Dermatology 04/28/21 Tavia Wyatt MD [address] [place] [address] [address] [place] [address] Dermatology 07/14/21 Erica Farrell APRN COMPOSITION PROFESSOR [address] [place] [address] Nurse Practitioner Cardiovascular Disease 09/09/21 Rich Barrett MD [address] [place] [address] 567295 Physician Ophthalmology 01/21/22 Neil Kent MD [address] [place] [address] 948735 Dermatology 02/24/22 [facility] [address] [place] [address] 599656 Assigned [facility] Pharmacist 04/07/22 Livan Sharif MD [address], [facility]00 [place] [address]85 Cardiovascular Disease 05/14/22 Catherine Cm MD [address] [facility]00 [place], [place] 0949[address] Cardiovascular Disease 07/21/22 Valery Veronica PA-C [address] [place] [address] Physician Edge Stripper Dermatology 07/21/22 Brea Quinn APRN COMPOSITION PROFESSOR 500 [place], [place] 902475 Nurse Practitioner Dermatology 09/21/22 Brea Quinn APRN COMPOSITION PROFESSOR 6401 [place] [address] Assigned Surgical Provider 10/09/22 [place] [address] [address] Assigned Musculoskeletal Provider 10/09/22 Alfonso Renteria MD [address] 385766 Assigned Neuroscience Provider 04/02/23 Radha Lomeli APRN COMPOSITION PROFESSOR [address] [address] Assigned Heart and Vascular Provider 05/28/23 Jelena David OD [address] [facility] [place] [address] Ophthalmology 06/15/23 Esha Grimm PA-C [address] [place] [address] Assigned PCP 07/16/23 Valery Veronica PA-C 909 [place], [place] 529455 Physician Edge Stripper Dermatology 09/19/23 Rey Tay MD 909 [place], [place] 322355 MD Gastroenterology 09/20/23 Rocky Zepeda DO 500 [place] [address] Physician Gastroenterology 09/20/23 Philip Dumont MD 516 [place] [address] Physician Ophthalmology 09/22/23 Meredith Carrera PA-C 9 [place] [address] Assigned Gastroenterology Provider 11/01/23 Neil Kent MD [address] 573200 Dermatology 11/02/23 [place] [address] [place] [address] Neurological Surgery 12/26/23 Audrey Waite PA-C 500 [place] [address] Physician Edge Stripper Dermatology 02/28/24 documented as of this encounter
--- OUTSIDE RECORDS SUMMARY | 2024-03-12 19:30 | XMS_ITS | Encounter Summary ---
Author Organization [place] Address [address] [place] [address] Care Team Providers Care Shaving Machine Operator Name Role Phone Thang Diana [place] [facility] Unavailable [phone] Rain Galaviz PA-C Unavailable Tavia Wyatt MD Unavailable Unavailable Erica Farrell APRN IRRIGATION FLUME LAYER Unavailable Rich Barrett MD Unavailable Neil Kent MD Unavailable Diana Desir Stanislav [facility] Unavailable [phone] Livan Sharif MD Unavailable Catherine Cm MD Unavailable + Valery Veronica PA-C Unavailable [phone] Brea Quinn LEAD CONSULTANT IRRIGATION FLUME LAYER Unavailable Brea Quinn LEAD CONSULTANT IRRIGATION FLUME LAYER Unavailable [phone] Jose Francisco Johnson MD Unavailable Alfonso Renteria MD Unavailable + [phone] Esha Grimm PA-C Primary Care Provider Radha Lomeli LEAD CONSULTANT IRRIGATION FLUME LAYER Unavailable [phone] Jelena David OD Unavailable Esha Grimm PA-C Unavailable [phone] Valery Veronica-C Unavailable [phone] Rey Tay MD Unavailable Rocky Zepeda DO Unavailable Philip Dumont MD Unavailable [phone] Meredith Carrera PA-C Unavailable [phone] Neil Kent MD Unavailable Juan Pablo Emmanuel MD Unavailable [phone] Audrey Waite PA-C Unavailable [phone] Encounter Details Date Type Department Care Team (Latest Contact Info) Description 03/03/2024 Travel Social History Tobacco Use Types Packs/Day [...] Recorded PHQ-2 Score 1 02/07/2024 [facility] Questionnaire [...] exercise at this level? 30 min 03/10/2023 [place] Depression Scale Answer Date Recorded [place] Depression Score 5 01/14/2021 Last EPDS Self [...] Description 03/26/2024 11:20 AM CDT Office Visit [facility] Spine and Neurosurgery 1747 [facility] [address] [place] [address] Ebony Cid, LEAD CONSULTANT [facility] 500 [place], [place] [address]405 03/27/2024 11:00 AM CDT Office Visit [facility] 3305 [facility] [address] [place] [phone] Jelena David, OD 3305 [facility] [place] [address] 04/19/2024 2:45 PM CDT Office Visit [facility] 830 [place] [phone] Audrey Waite PA-C [address] [place] [address] [address]385, [facility] 603 [place] [address] 05/08/2024 1:30 PM CDT Office Visit [facility] [address] [place] [address] Lauren Claudio PA-C [address] [place] [address] Esha Grimm PA-C [address] [place] [address] 06/21/2024 2:00 PM SALON MANAGER Office Visit [facility] Neurology Clinics [facility] 6545 [facility], [address] [place] [address] [place] [address] [place] [address] Johnny Penn MD [address]366 [place] [address] Scheduled Procedures Name Priority Associated Diagnoses Date/Ti nm ESOPHAGOGASTRODUODENOSCOPY Eosinophilic esophagitis Esophageal dysphagia documented as of this encounter Visit Diagnoses Not on filedocumented in this encounter Additional Health Concerns Assessment Noted Time PHQ-9 Depression Total Score: 3 02/07/20 24 9:33 AM CDT documented as of this encounter Care Teams Shaving Machine Operator Relationship Specialty Start Date End Date Esha Grimm PA-C [address] [place] [address] PCP - General Family Medicine 05/04/23 Diana Desir, [facility] [address] [place] [address] Pharmacist Pharmacist 04/17/21 Rain Galaviz PA-C [address] [place] [address] [address] [place] [id number] Physician Chief Of Hospital Medicine Dermatology 04/28/21 Tavia Wyatt MD [address] [facility] [address] [place] [address] Dermatology 07/14/21 Erica Farrell APRN IRRIGATION FLUME LAYER [address] [place] 205155 Nurse Practitioner Cardiovascular Disease 09/09/21 Rich Barrett MD 516 [facility], [address] 619465 Physician Ophthalmology 01/21/22 Neil Kent MD [address] [place] [address] Dermatology 02/24/22 Diana Desir, [facility] 3033 [place], [place] 133386 Assigned MTM Pharmacist 04/07/22 Livan Sharif MD [address] [place] [id number] Cardiovascular Disease 05/14/22 Catherine Cm MD [address] [facility] [place] [address] Cardiovascular Disease 07/21/22 Valery Veronica, PA-C [address] [place] [address]155 Physician Chief Of Hospital Medicine Dermatology 07/21/22 Brea Quinn APRN IRRIGATION FLUME LAYER 500 [place] [address] Nurse Practitioner Dermatology 09/21/22 Brea Quinn APRN IRRIGATION FLUME LAYER 6401 [place] [address] Assigned Surgical Provider 10/09/22 [place] [address] [address] [facility] 300 [place] [address] Assigned Musculoskeletal Provider 10/09/22 Alfonso Renteria MD 5775 [facility] 200 [place], [place] 037856 Assigned Neuroscience Provider 04/02/23 Radha Lomeli APRN IRRIGATION FLUME LAYER 6405 [facility] [address] [place] [address] Assigned Heart and Vascular Provider 05/28/23 Jelena David OD [address] [facility] [place] [address] Ophthalmology 06/15/23 Esha Grimm PA-C [address] [place] [address]283 Assigned PCP 07/16/23 Valery Veronica PA-C [address] [place] [address] 815325 Physician Chief Of Hospital Medicine Dermatology 09/19/23 Rey Tay MD 9 [place] [address] MD Gastroenterology 09/20/23 Rocky Zepeda DO 500 [place] [address] Physician Gastroenterology 09/20/23 Philip Dumont MD [address] [place] [address] Physician Ophthalmology 09/22/23 Meredith [place] PA-C [address] [place] [address] Assigned Gastroenterology Provider 11/01/23 Neil Kent MD [address] [place] [address] 596240 Dermatology 11/02/23 [place] [address] [facility] [place], [place] 6[address] Neurological Surgery 12/26/23 Audrey Waite PA-C 500 [place] [address] Physician Chief Of Hospital Medicine Dermatology 02/28/24 documented as of this encounter
--- OUTSIDE RECORDS SUMMARY | 2024-03-12 19:30 | XMS_ITS | Encounter Summary ---
Author Organization [place] Address [address] [place] [address] Care Team Providers Care Gas Plumbing Inspector Name Role Phone Thang Diana [place] [facility] Unavailable [phone] Rain Galaviz PA-C Unavailable Tavia Wyatt MD Unavailable Unavailable Erica Farrell APRN PUBLIC HEALTH WORKER Unavailable Rich Barrett MD Unavailable Neil Ketn MD Unavailable Diana Desir Stanislav [facility] Unavailable [phone] Livan Sharif MD Unavailable Catherine Cm MD Unavailable + Valery Veronica PA-C Unavailable [phone] Brea Quinn WINDMILL TECHNICIAN PUBLIC HEALTH WORKER Unavailable Brea Quinn WINDMILL TECHNICIAN PUBLIC HEALTH WORKER Unavailable Jose Francisco Johnson MD Unavailable Alfonso Renteria MD Unavailable + [phone] Esha Grimm PA-C Primary Care Provider Radha Lomeli WINDMILL TECHNICIAN PUBLIC HEALTH WORKER Unavailable [phone] Jelena David OD Unavailable Alfa Esha M PA-C Unavailable [phone] Valery Veronica PA-C Unavailable [phone] Rey Tay MD Unavailable Rocky Zepeda DO Unavailable Philip Dumont MD Unavailable [phone] Meredith Carrera PA-C Unavailable [phone] Neil Kent MD Unavailable Juan Pablo Emmanuel MD Unavailable [phone] Audrey Waite PA-C Unavailable [phone] Reason for Visit * Reason Onset Date Comments Procedure 03/05/2024 Cancel/Reschedul e Encounter Details Date Type Department Care Team (Late st Contact Info) Description 03/05/2024 Telephone [facility] Gastroenterology Clinic [address] [place] [address] None Procedure (Cancel/Reschedule) Social History Tobacco Use Types Packs/Day Years [...] often do you attend chur ch or caodaism services? 1 to 4 times [...] Answer Date Recorded PHQ-2 Score 1 02/07/2024 [facility] [...] exercise at this level? 30 min 03/10/2023 Murray Depression Scale Answer Date Recorded Murray Depression Score 5 01/14/2021 Last EPDS Self [...] encounter Miscellaneous Notes * Telephone Encounter - Rebecca Moctezuma - 03/05/2024 4:17 PM CDT Caller: No call made Reason for Reschedule/Cancellation (please be detailed, any staff messages or encounters to note?): Pt did not complete pre-assessmentand informed site that she cannot do 03/07 any longer Prior to reschedule please review: Ordering Provider: Meredith Carrera PA-C Sedation Determined: MAC Does patient have any ASC Exclusions, please identify?: No Notes on Cancelled Procedure: Procedure: Upper Endoscopy [EGD] Date: 03/07/2024 Location: [facility]; [address] [place] [address], 5th Floor, [place] [address] Surgeon: JUNE Rescheduled: No, Case in depot sent Mychart with call back info Did you cancel or rescheduled an EUS procedure? No. documented in this encounter Plan of Treatment Upcoming Encounters Date Type Department Care Team (Late st Contact Info) Description 03/26/2024 11:20 AM CDT Office Visit [facility] Spine and Neurosurgery [address] [facility] [address] [place] [address] Ebony Cid APRN [facility] 500 [place], [place] 5886[address] 03/27/2024 11:00 AM CDT [facility] [address] [facility] [address] [place] [phone] Jelena David, [address] [facility] [place] [address] 04/19/2024 2:45 PM CDT Office Visit [facility] 830 [place] [phone] Audrey Waite PA-C 420 [facility] [address]385, [facility] 603 [place], [place] [address] 05/08/2024 1:30 PM CDT Office Visit [facility] [address] [place] [phone] Lauren Claudio PA-C [address] [place], [place] [phone] Esha Grimm PA-C [address] [place] [address] 06/21/2024 2:00 PM MARKETING COMMUNICATIONS ASSISTANT Office Visit [facility] Neurology Clinics - [place] [address] [place] [address], [address] [place] [phone] [place] [address] [place], [place] 853767 IsamarJohnny mead MD [address] [place] [address] Scheduled Procedures Name Priority Associated Diagnoses Date/Ti oh ESOPHAGOGASTRODUODENOSCOPY Eosinophilic esophagitis Esophageal dysphagia documented as of this encounter Visit Diagnoses Not on filedocumented in this encounter Additional Health Concerns Assessment Noted Time PHQ-9 Depression Total Score: 3 02/07/20 24 9:33 AM CDT documented as of this encounter Care Teams Gas Plumbing Inspector Relationship Specialty Start Date End Date Esha Grimm PA-C [address] [place] [phone] PCP - General Family Medicine 05/04/23 Diana Desir, [facility] [address] [place], [place] [address] Pharmacist Pharmacist 04/17/21 Rain Galaviz PA-C [address] [place] [address] [address] [place] [address] Physician Glass Presser Dermatology 04/28/21 Tavia Wyatt MD [address] [place] [address] [address] [place] [address] Dermatology 07/14/21 Erica Farrell APRN PUBLIC HEALTH WORKER [address] [place] [address] Nurse Practitioner Cardiovascular Disease 09/09/21 Rich Barrett MD 516 [facility] 9A [place] [address] Physician Ophthalmology 01/21/22 Neil Kent MD 500 [place] [address] Dermatology 02/24/22 [facility] 3033 [place] [address] Assigned [place] Pharmacist 04/07/22 Livan Sharif MD 6405 [facility] [address] [place], [place] 9[address] Cardiovascular Disease 05/14/22 Catherine mC MD [address] 1042700 [place], [place] 7[address]695 Cardiovascular Disease 07/21/22 Valery Veronica, PA-C 909 [place] [address] Physician Glass Presser Dermatology 07/21/22 Brea Quinn APRN PUBLIC HEALTH WORKER 500 [place] [address] Nurse Practitioner Dermatology 09/21/22 Brea Quinn APRN PUBLIC HEALTH WORKER [address] [place] [address] Assigned Surgical Provider 10/09/22 [place] [address] [address] Assigned Musculoskeletal Provider 10/09/22 Alfonso Renteria MD 5775 [facility] 200 [place] [address] Assigned Neuroscience Provider 04/02/23 Radha Lomeli APRN PUBLIC HEALTH WORKER [address] [place] [address] Assigned Heart and Vascular Provider 05/28/23 [place] [address] [facility] [place] [address] MD Ophthalmology 06/15/23 Esha Grimm PA-C [address] [place] [address] Assigned PCP 07/16/23 Valery Veronica PA-C [address] [place] [address] 169125 Physician Glass Presser Dermatology 09/19/23 Rey Tay MD [address] [place] [address] 020315 Gastroenterology 09/20/23 Rocky Zepeda DO [address] [place] [address] Physician Gastroenterology 09/20/23 Philip Dumont MD [address] [place] [address] 277215 Physician Ophthalmology 09/22/23 Meredith Carrera PA-C [address] [place] [address] 369855 Assigned Gastroenterology Provider 11/01/23 Neil Kent MD [address] [address] Dermatology 11/02/23 [place] [address] [place] [address] 847137 Neurological Surgery 12/26/23 Audrey Waite PA-C 500 [place], [place] 304065 Physician Glass Presser Dermatology 02/28/24 documented as of this encounter
--- OUTSIDE RECORDS SUMMARY | 2024-03-12 19:31 | XMS_ITS | Encounter Summary ---
Author Organization [place] Address [address] [place] [address] Care Team Providers Care Lean Process Deployment Consultant Name Role Phone Thang Diana [place] [facility] Unavailable Rain Galaviz PA-C Unavailable [phone] Tavia Wyatt MD Unavailable Unavailable Erica Farrell APRN CODING SPECIALIST HOME HEALTH Unavailable Rich Barrett MD Unavailable Neil Kent MD Unavailable Diana Desir Stanislav [facility] Unavailable [phone] Livan Sharif MD Unavailable Catherine Cm MD Unavailable + Valery Veronica PA-C Unavailable [phone] Brea Quinn BAKERY ASSOCIATE CODING SPECIALIST HOME HEALTH Unavailable Brea Quinn BAKERY ASSOCIATE CODING SPECIALIST HOME HEALTH Unavailable [phone] Jose Francisco Johnson MD Unavailable Alfonso Renteria MD Unavailable + [phone] Esha Grimm PA-C Primary Care Provider [phone] Radha Lomeli BAKERY ASSOCIATE CODING SPECIALIST HOME HEALTH Unavailable [phone] Jelena David OD Unavailable Esha GrimmC Unavailable [phone] Valery VeronicaC Unavailable [phone] Rey Tay MD Unavailable Rocky Zepeda DO Unavailable Philip Dumont MD Unavailable [phone] Meredith CarreraC Unavailable [phone] Neil Kent MD Unavailable Juan Pablo Emmanuel MD Unavailable [phone] Encounter Details Date Type Department Care Team [...] How often do you attend [facility] or temple services? 1 to 4 times [...] Answer Date Recorded PHQ-2 Score 0 10/25/2023 [facility] - Occupational Stress Questionnaire Answer Date Recorded [...] exercise at this level? 30 min 03/10/2023 Deforest Depression Scale Answer Date Recorded Deforest Depression Score 5 01/14/2021 Last EPDS Self [...] Description 03/26/2024 11:20 AM CDT Office Visit [facility] Spine and Neurosurgery [address] [facility] 100 [place] [address] Ebony Cid, BAKERY ASSOCIATE [facility] 500 [place], [place] 26[address] 03/27/2024 11:00 AM CDT Office Visit [facility] [address] [facility] [address] [place] [phone] Jelena David, 3305 [facility] [place] [address] 04/19/2024 2:45 PM CDT Office Visit [facility] 830 [place] [address] Audrey Waite PA-C 420 [facility] [address]385, [facility] 603 [place], [place] 3040[address] 05/08/2024 1:30 PM CDT Office Visit [facility] [address] [place] [phone] Lauren Claudio PA-C [address] [place] [address] [phone] Esha Grimm PA-C [address] [place] [address] 06/21/2024 2:00 PM DOPEMAN Office Visit [facility] Neurology [facility] [address] [facility], [address] [place] [address] [place] [address] [place] [address] Johnny Penn MD [address] [place], [place] [phone] Scheduled Procedures Name Priority Associated Diagnoses Date/Ti md ESOPHAGOGASTRODUODENOSCOPY Eosinophilic esophagitis Esophageal dysphagia documented as of this encounter Visit Diagnoses Not on filedocumented in this encounter Additional Health Concerns Assessment Noted Time PHQ-9 Depression Total Score: 4 06/20/20 23 8:40 AM DOPEMAN documented as of this encounter Care Teams Lean Process Deployment Consultant Relationship Specialty Start Date End Date Esha Grimm PA-C [address] [place] [address] PCP - General Family Medicine 05/04/23 Diana Desir, [facility] 3033 [place] [address] Pharmacist Pharmacist 04/17/21 Rain Galaviz PA-C [address] [place] [address] [address] [facility] [phone] Physician Support Services Tech Dermatology 04/28/21 Tavia Wyatt MD [address] [place] [address] [address] [place] [address] Dermatology 07/14/21 Erica Farrell APRN CODING SPECIALIST HOME HEALTH [address] [place], [place] 3639[address] Nurse Practitioner Cardiovascular Disease 09/09/21 Rich Barrett MD 516 [facility] 9A [place], [place] 45[address]45 Physician Ophthalmology 01/21/22 Neil Kent MD 500 [place], [place] 736925 Dermatology 02/24/22 [facility] 3033 [place], [place] 224776 Assigned MTM Pharmacist 04/07/22 Livan Sharif MD [address] [address] Cardiovascular Disease 05/14/22 Catherine Cm MD [address] [address] Cardiovascular Disease 07/21/22 Valery Veronica, PA-C [address] [place] [address] 135885 Physician Support Services Tech Dermatology 07/21/22 Brea Quinn APRN CODING SPECIALIST HOME HEALTH 500 [place], [place] [phone] Nurse Practitioner Dermatology 09/21/22 Brea Quinn APRN CODING SPECIALIST HOME HEALTH 6401 [place] [address] Assigned Surgical Provider 10/09/22 [place] [address] [facility] 300 [place] [address] Assigned Musculoskeletal Provider 10/09/22 Alfonso Renteria MD 5775 [facility] 200 [place], [place] 67[address]56 Assigned Neuroscience Provider 04/02/23 Radha Lomeli APRN CODING SPECIALIST HOME HEALTH [address] 6268500 [place] [address] Assigned Heart and Vascular Provider 05/28/23 Jelena David OD [address] [facility] [place] [address] Ophthalmology 06/15/23 Esha Grimm PA-C [address] [place] [address]214[address] Assigned PCP 07/16/23 Valery Veronica PA-C [address] [place] [address] 026835 Physician Support Services Tech Dermatology 09/19/23 Rey Tay MD 9 [place], [place] 223815 Gastroenterology 09/20/23 Rocky Zepeda DO [address] [place] [address] 435655 Physician Gastroenterology 09/20/23 Philip Dumont MD [address] [place] [address] 720725 Physician Ophthalmology 09/22/23 Meredith Carrera PA-C [address] [place] [address] 446025 Assigned Gastroenterology Provider 11/01/23 Neil Kent MD [address] 601[address] Dermatology 11/02/23 [place] [address] [address] [facility] [place], [place] 431387 Neurological Surgery 12/26/23 documented as of this encounter
--- OUTSIDE RECORDS SUMMARY | 2024-03-12 19:31 | XMS_ITS | Encounter Summary ---
Author Organization [place] Address [address] [place] [address] Care Team Providers Care Railroad Commissioner Name Role Phone Thang Diana [place] [facility] Unavailable Rain Galaviz PA-C Unavailable Tavia Wyatt MD Unavailable Unavailable Erica Farrell APRN RETORT COOLER Unavailable Rich Barrett MD Unavailable Neil Kent MD Unavailable Diana Desir Stanislav [facility] Unavailable [phone] Livan Sharif MD Unavailable Catherine Cm MD Unavailable + Valery Veronica PA-C Unavailable [phone] Brea Quinn TESTER ARMATURE OR FIELDS RETORT COOLER Unavailable Brea Quinn TESTER ARMATURE OR FIELDS RETORT COOLER Unavailable Jose Francisco Johnson MD Unavailable Alfonso Renteria MD Unavailable + [phone] Esha Grimm PA-C Primary Care Provider Radha Lomeli TESTER ARMATURE OR FIELDS RETORT COOLER Unavailable [phone] Jelena David OD Unavailable Alfa Eshalincoln DOWC Unavailable [phone] Valery VeronicaC Unavailable eRy Tay MD Unavailable Rocky Zepeda DO Unavailable Philip Dumont MD Unavailable [phone] Meredith CarreraC Unavailable Neil Kent MD Unavailable Juan Pablo Emmanuel MD Unavailable [phone] Encounter Details Date Type Department Care Team (Late st Contact Info) Description 01/23/2024 Telephone [facility] Spine and Neurosurgery 1747 [facility] 100 [place] [address] Ebony Cid APRN [facility] 500 [place] [address] Social History Tobacco Use Types [...] [facility] - Occupational Stress Questionnaire Answer Date Recorded [...] exercise at this level? 30 min 03/10/2023 Barnum Depression Scale Answer Date Recorded Barnum [...] symptoms and imaging results. Call back #: [phone] Preferred Pharmacy: documented in this encounter Plan of Treatment Upcoming Encounters Date Type Department Care Team (Late st Contact Info) Description 03/26/2024 11:20 AM CDT Office Visit [facility] Spine and Neurosurgery 1747 [facility] [address] [place] [address] Ebony Cid, TESTER ARMATURE OR FIELDS [facility] 500 [place], [place] [address]315 03/27/2024 11:00 AM CDT Office Visit [facility] [address] [facility] [address] [place] [phone] Jelena David, [address] [facility] [id number] 04/19/2024 2:45 PM CDT Office Visit [facility] 830 [place] [phone] Audrey Waite PA-C [address] [place] [address] [address]385, [facility] 603 [place] [address] 05/08/2024 1:30 PM CDT Office Visit [address] [place] [phone] Lauren Claudio PA-C [address] [place], [place] [phone] Esha Girmm PA-C [address] [place] [address] 06/21/2024 2:00 PM WEB PROJECT MANAGER Office Visit [facility] Neurology Clinics - [place] [address] [facility], [address] [place] [address] [place] [address] [place], [place] [phone] Johnny Penn MD 6545 [place], [place] [phone] Scheduled Procedures Name Priority Associated Diagnoses Date/Ti ia ESOPHAGOGASTRODUODENOSCOPY Eosinophilic esophagitis Esophageal dysphagia documented as of this encounter Visit Diagnoses Not on filedocumented in this encounter Additional Health Concerns Assessment Noted Time PHQ-9 Depression Total Score: 4 06/20/20 23 8:40 AM WEB PROJECT MANAGER documented as of this encounter Care Teams Railroad Commissioner Relationship Specialty Start Date End Date Esha Grimm PA-C [address] [place] [address] PCP - General Family Medicine 05/04/23 Diana Desir, [facility] 3033 [facility] [place] [address] Pharmacist Pharmacist 04/17/21 Rain Galaviz PA-C [address] [place] [address] [address] [place] [address] Physician Gear Straightener Dermatology 04/28/21 Tavia Wyatt MD [address] [place] [address] DR [address] [facility] [address] [id number] Dermatology 07/14/21 Erica Farrell APRN RETORT COOLER [address] [place] [id number] Nurse Practitioner Cardiovascular Disease 09/09/21 Rich Barrett MD [address] [address] Physician Ophthalmology 01/21/22 Neil Kent MD [address] [place] [address] 112515 Dermatology 02/24/22 Diana Desir, [facility] 3033 [place], [place] 283706 Assigned [facility] Pharmacist 04/07/22 Livan Sharif MD [address] [place] [address] Cardiovascular Disease 05/14/22 Catherine Cm MD [address] [place] [address] Cardiovascular Disease 07/21/22 Valery Veronica, PAUcheC [address] [place] [address] 355525 Physician Gear Straightener Dermatology 07/21/22 Brea Quinn APRN RETORT COOLER 500 [place] [address] Nurse Practitioner Dermatology 09/21/22 Brea Quinn APRN RETORT COOLER 6401 [place] [address] Assigned Surgical Provider 10/09/22 [place] [address] [address] [facility] 300 [place], [place] 7[address]487 Assigned Musculoskeletal Provider 10/09/22 Alfonso Renteria MD 5775 [facility] 200 [place], [place] 06[address]56 Assigned Neuroscience Provider 04/02/23 Radha Lomeli APRN RETORT COOLER 6405 [facility] [address] [place] [address] Assigned Heart and Vascular Provider 05/28/23 Jelena David OD [address] [facility] [place] [id number] Ophthalmology 06/15/23 Esha Grimm PA-C [address] [place] [phone] Assigned PCP 07/16/23 Valery Veronica PA-C 909 [place] [address] Physician Gear Straightener Dermatology 09/19/23 Rey Tay MD [address] [place] [address] Gastroenterology 09/20/23 Rocky Zepeda DO [address] [place] [address] Physician Gastroenterology 09/20/23 Philip Dumont MD [address] [place] [address] Physician Ophthalmology 09/22/23 Meredith Carrera PA-C [address] [place] [address] Assigned Gastroenterology Provider 11/01/23 Neil Kent MD [address] [place] [address] Dermatology 11/02/23 [place] [address] [place] [address] Neurological Surgery 12/26/23 documented as of this encounter
--- OUTSIDE RECORDS SUMMARY | 2024-03-12 19:31 | XMS_ITS | Encounter Summary ---
Author Organization [place] Address [address] [place] [address] Care Team Providers Care Biology Department Chair Name Role Phone Thang Diana [place] [facility] Unavailable [phone] Rain Galaviz PA-C Unavailable Tavia Wyatt MD Unavailable Unavailable Erica Farrell APRN SAT ACT INSTRUCTOR Unavailable Rich Barrett MD Unavailable Neil Kent MD Unavailable Diana Desir Stanislav [facility] Unavailable [phone] Livan Sharif MD Unavailable Catherine Cm MD Unavailable + Valery Veronica PA-C Unavailable [phone] Brea Quinn RESPIRATORY ASSISTANT SAT ACT INSTRUCTOR Unavailable Brea Quinn RESPIRATORY ASSISTANT SAT ACT INSTRUCTOR Unavailable [phone] Jose Francisco Johnson MD Unavailable Alfonso Renteria MD Unavailable + [phone] Esha Grimm PA-C Primary Care Provider Radha Lomeli RESPIRATORY ASSISTANT SAT ACT INSTRUCTOR Unavailable [phone] Jelena David OD Unavailable Esha Grimm PA-C Unavailable [phone] Valery VeronicaC Unavailable Rey Tay MD Unavailable Duane Rocky DO Unavailable Philip Dumont MD Unavailable Meredith CarreraC Unavailable Neil Kent MD Unavailable Juan Pablo Emmanuel MD Unavailable [phone] Reason for Visit * Reason Onset Date Comments Symptoms 02/06/2024 VAGINAL SYMPTOMS THAT PATIENT WOULD LIKE TO GET LAB ORDERS FOR Encounter Details Date Type Department Care Team (Late st Contact Info) Description 02/06/[address] [facility] [address] [place] [address] Esha Grimm PA-C [address] [place] [address] Symptoms (VAGINAL SYMPTOMS THAT PATIENT [...] Answer Date Recorded PHQ-2 Score 1 02/07/2024 [facility] - [...] exercise at this level? 30 min 03/10/2023 Aurora Depression Scale Answer Date Recorded Aurora Depression Score 5 01/14/2021 Last EPDS Self [...] 03/26/2024 11:20 AM CDT Office Visit [facility] Spine and Neurosurgery [address] [facility] 100 [place] [address] Ebony Cid, [facility] 500 [place], [place] [address] 03/27/2024 11:00 AM CDT Office Visit [facility] [address] [facility] [address] [place] [phone] Jelena David, [address] [facility] [place] [address] 04/19/2024 2:45 PM CDT Office Visit [facility] [address] [place] [phone] Audrey Waite PA-C 420 [facility] [address], [facility] 603 [place], [place] [address] 05/08/2024 1:30 PM CDT Office Visit [facility] [address] [place] [phone] Lauren Claudio PA-C [address] [place], [place] [phone] Esha Grimm PA-C [address] [place] [phone] 06/21/2024 2:00 PM FREELANCE ART DIRECTOR Office Visit [facility] Neurology [facility] [address] [facility], [address] [place] [phone] [place] [address] [place], [place] [phone] Johnny Penn MD 5198 [place], [place] [address] Scheduled Procedures Name Priority Associated Diagnoses Date/Ti il ESOPHAGOGASTRODUODENOSCOPY Eosinophilic esophagitis Esophageal dysphagia documented as of this encounter Visit Diagnoses Not on filedocumented in this encounter Additional Health Concerns Assessment Noted Time PHQ-9 Depression Total Score: 4 06/20/20 23 8:40 AM FREELANCE ART DIRECTOR documented as of this encounter Care Teams Biology Department Chair Relationship Specialty Start Date End Date Esha Grimm PA-C [address] [place] [phone] PCP - General Family Medicine 05/04/23 Diana Desir, [facility] [address] [place] [address] Pharmacist Pharmacist 04/17/21 Rain Galaviz PA-C [address] [place] [address] [address] [place] [address] Physician Dining Car Steward Dermatology 04/28/21 Tavia Wyatt MD [address] [place] [address] [address] [place] [address] Dermatology 07/14/21 Erica Farrell APRN SAT ACT INSTRUCTOR [address] [place] [address] Nurse Practitioner Cardiovascular Disease 09/09/21 Rich Barrett MD 516 [facility] 9A [place], [place] [address]39[address] Physician Ophthalmology 01/21/22 Neil Kent MD 500 [place], [place] [phone] Dermatology 02/24/22 Diana Desir, [facility] 3033 [place], [place] [address] Assigned MTM Pharmacist 04/07/22 Livan Sharif MD [address] [place] [address]275 Cardiovascular Disease 05/14/22 Catherine Cm MD [address] [facility]00 [place] [address]25 Cardiovascular Disease 07/21/22 Valery Veronica PAUcheC [address] [place] [address]85 Physician Dining Car Steward Dermatology 07/21/22 Brea Quinn APRN SAT ACT INSTRUCTOR 500 [place], [place] [phone] Nurse Practitioner Dermatology 09/21/22 Brea Quinn APRN SAT ACT INSTRUCTOR 6401 [place] [address] Assigned Surgical Provider 10/09/22 [place] [address] [address] [facility] 300 [place] [address] Assigned Musculoskeletal Provider 10/09/22 Alfonso Renteria MD [address] [facility] 200 [place] [address] Assigned Neuroscience Provider 04/02/23 Radha Lomeli APRN SAT ACT INSTRUCTOR [address] [address] Assigned Heart and Vascular Provider 05/28/23 Jelena David OD [address] [facility] [address] [place] [id number] Ophthalmology 06/15/23 Esha Grimm PA-C [address] [place] [phone] Assigned PCP 07/16/23 Valery Veronica PA-C 909 [place], [place] [address] Physician Dining Car Steward Dermatology 09/19/23 Rey Tay MD 909 [place], [place] 6[address] Gastroenterology 09/20/23 Rocky Zepeda DO [address] [place] [address] Physician Gastroenterology 09/20/23 Philip Dumont MD [address] [place] [address] Physician Ophthalmology 09/22/23 Meredith Carrera PA-C [address] [place] [address] Assigned Gastroenterology Provider 11/01/23 Neil Kent MD [address] [address] Dermatology 11/02/23 [place] [address] [place] [address] Neurological Surgery 12/26/23 documented as of this encounter
--- OUTSIDE RECORDS SUMMARY | 2024-03-12 19:31 | XMS_ITS | Encounter Summary ---
Author Organization [place] Address [address] [place] [address] Care Team Providers Care Assessment Counselor Name Role Phone Thang Diana [place] [facility] Unavailable [phone] Rain Galaviz PA-C Unavailable Tavia Wyatt MD Unavailable Unavailable Erica Farrell APRN RESTAURANT ASSOCIATE Unavailable Rich Barrett MD Unavailable Neil [place] MD Unavailable Diana Desir Stanislav [facility] Unavailable [phone] Livan Sharif MD Unavailable Catherine Cm MD Unavailable + Valery Veronica PA-C Unavailable [phone] Brea Quinn MIXING HOUSE OPERATOR RESTAURANT ASSOCIATE Unavailable Brea Quinn MIXING HOUSE OPERATOR RESTAURANT ASSOCIATE Unavailable Jose Francisco Johnson MD Unavailable Alfonso Renteria MD Unavailable [phone] Esha Grimm PA-C Primary Care Provider Radha Lomeli MIXING HOUSE OPERATOR RESTAURANT ASSOCIATE Unavailable [phone] Jelena David OD Unavailable [phone] Wicho Grimmlincoln Medina PA-C Unavailable [phone] Valery Veronica PA-C Unavailable [phone] Rey Tay MD Unavailable ZepedaRocky Unavailable Philip Dumont MD Unavailable [phone] Meredith Carrera PA-C Unavailable Neil Kent MD Unavailable Juan Pablo Emmanuel MD Unavailable [phone] Reason for Visit * Rehab Therapy Physical Therapy (Priority: 1-2 Weeks) - Pending Review Specialty Diagnoses / Procedures Referred By Qian t Referred To Contact Diagnoses Chiari malformation type I (H) Neck pain Ebony Cid APRN RESTAURANT ASSOCIATE 500 [place] [address] Referral ID Status Reason Start Date Expiration Date V isits Requested Visits Authorized [id number] Pending Review 01/05/2024 01/04/2025 1 1 Encounter Details Date Type Department Care Team (Latest Contact Info) Description 01/26/2024 12:50 PM CDT Therapy Visit [address] [phone] Ebony Cid APRN [facility] 500 [place] [address] Rustam Medina, PT [facility] [id number] [place] [address] Chiari malformation type I (H); Neck pain [...] Answer Date Recorded PHQ-2 Score 0 10/25/2023 [facility] Questionnaire [...] exercise at this level? 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 Patient/Family/caregiver agrees with Plan of Care. Evaluation Time: PT Travon Munguia Minutes (94191): 20 Signing Clinician: Rustam Medina, PT [facility] OUTPATIENT PHYSICAL THERAPY PLAN OF TREATMENT FOR OUTPATIENT REHABILITATION Patient's Last Name, First Name, Kim White Date of : 2000 Provider's Name [facility] Onset Date: 01/05/24 (MD order) Start of Care Date: 01/26/24 Medical Diagnosis: Chiari malformation type I (H) Neck pain PT Treatment Diagnosis: Neck pain with bilat UE sxs and mid to low back pain Plan of Treatment Frequency/Duration: 1x/week/ 8 weeks Certification date from 01/26/24 to 03/21/24 See note for plan of treatment details and functional goals Rustam Medina, PT I CERTIFY THE NEED FOR THESE SERVICES [...] [facility] Spine and Neurosurgery 1747 [facility] 100 [place] [address] Ebony Cid APRN [facility] 500 [place] [address] 03/27/2024 11:00 AM CDT [facility] [address] [facility] [address] [place] [phone] Jelena David, OD [address] [facility] [place] [address] 04/19/2024 2:45 PM CDT Office Visit [facility] 830 [place] [phone] Audrey Waite PA-C [address] [place] [address] [address]385, [facility] 603 [place], [place] [address] 05/08/2024 1:30 PM CDT Office Visit [facility] [address] [place] [address] Lauren Claudio PA-C [address] [place] [address] Esha Grimm PA-C [address] [place] [address] 06/21/2024 2:00 PM WAREHOUSE ORDER FILLER Office Visit [facility] Neurology [facility] [address], [address] [place] [address] [place] [address] [address] Johnny Penn MD 6545 [place] [address] Scheduled Procedures Name Priority Associated Diagnoses Date/Ti tn ESOPHAGOGASTRODUODENOSCOPY Eosinophilic esophagitis Esophageal dysphagia documented as of this encounter Visit Diagnoses Diagnosis Chiari malformation type I (H) Compression of brain Neck pain Cervicalgia documented in this encounter Additional Health Concerns Assessment Noted Time PHQ-9 Depression Total Score: 4 06/20/20 23 8:40 AM WAREHOUSE ORDER FILLER documented as of this encounter Care Teams Assessment Counselor Relationship Specialty Start Date End Date Esha Grimm PA-C [id number] [place] [phone] PCP - General Family Medicine 05/04/23 Diana Desir, [facility] 3033 [place] [address] Pharmacist Pharmacist 04/17/21 Rain Galaviz PA-C [address] [place] [address] [address] [place] [address] Physician Security Support Analyst Dermatology 04/28/21 Tavia Wyatt MD [address] [place] [address] [address] [place] [facility] [address] Dermatology 07/14/21 Erica Farrell APRN RESTAURANT ASSOCIATE [address] [place] [address] Nurse Practitioner Cardiovascular Disease 09/09/21 Rich Brarett MD [address] [place] [address] Physician Ophthalmology 01/21/22 Neil Kent MD 500 [place], [place] [address] Dermatology 02/24/22 Diana Desir, [facility] [address] [place] [address] Assigned MTM Pharmacist 04/07/22 Livan Sharif MD [address] [place] [address] Cardiovascular Disease 05/14/22 Catherine Cm MD [address] [place] [address] Cardiovascular Disease 07/21/22 Valery Veronica PA-C 909 [place], [place] [address] Physician Security Support Analyst Dermatology 07/21/22 Brea Quinn APRN RESTAURANT ASSOCIATE 500 [place], [place] 46[address] Nurse Practitioner Dermatology 09/21/22 Brea Quinn APRN RESTAURANT ASSOCIATE 6401 [place], [place] 191332 Assigned Surgical Provider 10/09/22 [place] [address] [address] [facility] 300 [place] [address] Assigned Musculoskeletal Provider 10/09/22 Alfonso Renteria MD [address] [facility] 200 [place], [place] [phone] Assigned Neuroscience Provider 04/02/23 Radha Lomeli APRN RESTAURANT ASSOCIATE 6405 [facility] [address] [place] [address] Assigned Heart and Vascular Provider 05/28/23 Jelena David OD [address] [facility] [place] [id number] Ophthalmology 06/15/23 Esha Grimm PA-C [address] [place] [phone] Assigned PCP 07/16/23 Valery Veronica PA-C [address] [place] [address] Physician Security Support Analyst Dermatology 09/19/23 Rey Tay MD [address] [place] [address] MD Gastroenterology 09/20/23 Rocky Zepeda DO [address] [place] [address] Physician Gastroenterology 09/20/23 Philip Dumont MD [address] [place] [address] Physician Ophthalmology 09/22/23 Meredith Carrera PA-C [address] [place] [address] Assigned Gastroenterology Provider 11/01/23 Neil Kent MD [address] [place] [address] Dermatology 11/02/23 [place] [address] [place] [address] Neurological Surgery 12/26/23 documented as of this encounter
--- OUTSIDE RECORDS SUMMARY | 2024-03-12 19:31 | XMS_ITS | Encounter Summary ---
Author Organization [place] Address [address] [place] [address] Care Team Providers Care Advertising Strategist Name Role Phone Thang Diana [place] [facility] Unavailable Rain Galaviz PA-C Unavailable Tavia Wyatt MD Unavailable Unavailable Erica Farrell APRN ROD MILL TENDER Unavailable Rich Barrett MD Unavailable Neil Kent MD Unavailable Diana Desir Stanislav [facility] Unavailable [phone] Livan Sharif MD Unavailable Catherine Cm MD Unavailable + Valery Veronica PA-C Unavailable [phone] Brea Quinn INSTRUMENTAL MUSIC TEACHER ROD MILL TENDER Unavailable [phone] Brea Quinn INSTRUMENTAL MUSIC TEACHER ROD MILL TENDER Unavailable Jose Francisco Johnson MD Unavailable Alfonso Renteria MD Unavailable + [phone] Esha Grimm PA-C Primary Care Provider Radha Lomeli INSTRUMENTAL MUSIC TEACHER ROD MILL TENDER Unavailable [phone] Jelena David OD Unavailable Esha GrimmC Unavailable [phone] Valery VeronicaC Unavailable [phone] Rey Tay MD Unavailable Rocky Zepeda Unavailable Philip Dumont MD Unavailable Meredith CarreraC Unavailable Neil Kent MD Unavailable Juan Pablo Emmanuel MD Unavailable [phone] Reason for Visit * Reason Comments Urgent Care Nasal Congestion Nasal congestion for 2-3 wks. Tx- none otc. Per pt- when taking a deep breathing pt states her upper back. Vaginal Problem Pt was seen 2 weeks ago and was treated for BV and yeast but sx has not cleared up and would like to get tx again Encounter Details Date Type Department Care Team (Late st Contact Info) Description 02/27/2024 10:35 AM CDT Office Visit [facility] [place] [id number] [place] [phone] Nicole Garcia PA-C [facility] [id number] [place] [address] Vagina, candidiasis (Primary Dx); Bacterial vaginosis; Nasal congestion Social History Tobacco Use Types Packs/Day Years [...] Answer Date Recorded PHQ-2 Score 1 02/07/2024 [facility] - Occupational Stress Questionnaire Answer [...] exercise at this level? 30 min 03/10/2023 Woodruff Depression Scale Answer Date Recorded Woodruff Depression Score 5 01/14/2021 Last EPDS Self [...] Sign Reading Time Taken Comments Blood Pressure 100/70 02/27/2024 10:45 AM CDT Pulse 70 02/27/2024 10:45 AM CDT Temperature 36.7 ??C (98 ??F) 02/27/2024 10:45 AM CDT Respiratory Rate 16 02/27/2024 10:45 AM CDT Oxygen Saturation 100% 02/27/2024 10:45 AM CDT Inhaled Oxygen Concentration - - Weight - - Height - - Body Mass Index - - documented in this encounter Patient Instructions * Patient Instructions* Nicole Garcia PA-C - 02/27/2024 10:35 AM CDT BV: Patient was educated on the natural course of condition. Take medication as prescribed. Side effects discussed. No alcohol while taking this medication. Conservative measures discussed including avoid sexual intercourse until infection clears. Although bacterial vaginosis is not transmitted sexually, having sex puts you at risk. This may be prevented by using condoms. See your primary care provider if symptoms worsen or do not improve in 7 days. Seek emergency care if you develop severe pelvic pain. Yeast infection: Patient was educated on the natural course of condition. A yeast infection is caused by a normally found fungus called eros. Risk factors include antibiotics and certain medical conditions. Take medication as prescribed. Side effects discussed. Conservative measures discussed including avoid sexual intercourse until infection clears, avoid tight fitting clothes, and wear cotton underwear. See your primary care provider if symptoms worsen or do not improve in 7 days. Seek emergency care if you develop severe pelvic pain. Nasal congestion: Patient was educated on the natural course of post viral nasal inflammation. Conservative measures include increased fluids and saline spray. Trial of Flonase for at least 2 weeks. See your primary care provider if symptoms worsen or do not improve in 7 days. Seek emergency care if you develop fever over 104 or shortness of breath. documented in this encounter Progress Notes * Nicole Garcia PA-C - 02/27/2024 10:35 AM CDT URGENT CARE VISIT: SUBJECTIVE: Kim Johnson is a 23 year old female who presents with vaginal discharge and itching since 2 day(s) ago. Denies fever, abdominal pain, pelvic pain, dysuria, urinary frequency, nausea, and vomiting.Symptoms have been stable. Treatment tried include none with no relief of symptoms. She had yeast and BV in the last month. She had one leftover diflucan pill which she took today. Sexually active: yes, single partner Predisposing factors: None Hx of previous symptom: yes No LMP recorded. (Menstrual status: IUD). She is also here for nasal congestion for 2 to 3 weeks. She started with a cold which cleared up except for nasal congestion. Denies sinus pressure or cough. No treatments tried. Symptoms are stable. PMH: Past Medical History: Diagnosis Date Anxiety Chronic kidney disease stones, history of infections Depressive disorder Gastroesophageal reflux disease Psoriasis Seizure (H) 05/02/2019 no seizure since approx 2018 SVT (supraventricular tachycardia) (H24) Allergies: Vancomycin Medications: Current Outpatient Medications Medication Sig Dispense Refill clindamycin (CLEOCIN T) 1 % external lotion Apply topically 2 times daily 60 mL 1 Digestive Enzymes (DIGESTIVE ENZYME PO) fluconazole (DIFLUCAN) 150 MG tablet Take 1 tablet (150 mg) by mouth every 3 days for 2 doses 2 tablet 0 ketoconazole (NIZORAL) 2 % external [...] until healed then stop 80 g 2 Social History: Social History Tobacco Use Smoking status: Former Current packs/day: 0.00 Types: Other, Cigarettes Quit date: 12/07/2019 Years since quittin.2 Passive exposure: Past Smokeless tobacco: Never Substance Use Topics Alcohol use: Not Currently Comment: social ROS: General: negaitve Skin: negative Eyes: negative Ears/Nose/Throat: nasal congestion Respiratory: none Cardiovascular: negative Gastrointestinal: negative Genitourinary: vaginal discharge Musculoskeletal: negative Neurologic: negative OBJECTIVE: BP 100/70 Pulse 70 Temp 98 ??F (36.7 ??C) (Tympanic) Resp 16 SpO2 100% GENERAL APPEARANCE: healthy, alert and no distress RESP: lungs clear to auscultation - no rales, rhonchi or wheezes CV: regular rates and rhythm, normal S1 S2, no murmur noted BACK: No CVA tenderness SKIN: no suspicious lesions or rashes NEURO: mentation intact Genitourinary: deferred PSYCH: normal mood Labs: Results for orders placed or performed in visit on 02/27/24 UA Macroscopic with reflex to Microscopic and Culture - Clinic Collect Status: Abnormal Specimen: Urine, Midstream Result Value Ref Range Color Urine Yellow Colorless, Straw, Light Yellow, Yellow Appearance Urine Clear Clear Glucose Urine Negative Negative mg/dL Bilirubin Urine Negative Negative Ketones Urine Negative Negative mg/dL Specific Bayard Urine 1.020 1.003 - 1.035 Blood Urine Trace (A) Negative pH Urine 7.0 5.0 - 7.0 Protein Albumin Urine Negative Negative mg/dL Urobilinogen Urine 1.0 0.2, 1.0 E.U./dL Nitrite Urine Negative Negative [...] Cells Present (A) Absent WBCs/high power field 3+ (A) None ASSESSMENT: ICD-10-CM 1. Vagina, candidiasis B37.31 Wet prep - lab collect Wet prep - lab collect fluconazole (DIFLUCAN) 150 MG tablet 2. Bacterial vaginosis N76.0 UA Macroscopic with reflex to Microscopic and Culture - Clinic Collect B96.89 UA Microscopic with Reflex to Culture metroNIDAZOLE (FLAGYL) 500 MG tablet 3. Nasal congestion R09.81 PLAN: Patient Instructions BV: Patient was educated on the natural course of condition. Take medication as prescribed. Side effects discussed. No alcohol while taking this medication. Conservative measures discussed including avoid sexual intercourse until infection clears. Although bacterial vaginosis is not transmitted sexually, having sex puts you at risk. This may be prevented by using condoms. See your primary care provider if symptoms worsen or do not improve in 7 days. Seek emergency care if you develop severe pelvic pain. Yeast infection: Patient was educated on the natural course of condition. A yeast infection is caused by a normally found fungus called eros. Risk factors include antibiotics and certain medical conditions. Take medication as prescribed. Side effects discussed. Conservative measures discussed including avoid sexual intercourse until infection clears, avoid tight fitting clothes, and wear cotton underwear. See your primary care provider if symptoms worsen or do not improve in 7 days. Seek emergency care if you develop severe pelvic pain. Nasal congestion: Patient was educated on the natural course of post viral nasal inflammation. Conservative measures include increased fluids and saline spray. Trial of Flonase for at least 2 weeks. See your primary care provider if symptoms worsen or do not improve in 7 days. Seek emergency care if you develop fever over 104 or shortness of breath. Patient verbalized understanding and is agreeable to plan. The patient was discharged ambulatory and in stable condition. Nicole Garcia PA-C .................... 02/27/2024 11:11 AM documented in this encounter Plan of Treatment Upcoming Encounters Date Type Department Care Team (Late st Contact Info) Description 03/26/2024 11:20 AM CDT Office Visit [facility] Spine and Neurosurgery [address] [place] [address] [address] [place] [phone] Ebony Cid, INSTRUMENTAL MUSIC TEACHER [facility] [address] [place] [address] 03/27/2024 11:00 AM CDT Office Visit [facility] [place] [address] [facility] [address] [place] [phone] Jelena David, OD [address] [facility] [place] [address] 04/19/2024 2:45 PM CDT Office Visit [address] [address] Audrey Waite PA-C [address], [facility] [address] [place], [place] [address] 05/08/2024 1:30 PM CDT Office Visit [facility] [address] [place] [address] Lauren Claudio PA-C [address] [place] [address] Esha Grimm PA-C [address] [place] [address] 06/21/2024 2:00 PM OIL PROGRAM COMPLIANCE SPECIALIST Office Visit [facility] Neurology [facility] - [address], [address] [place] [address] [place] [address] RAZO [address] [place] [address] Johnny Penn MD [address] [place], [place] [address] Scheduled Procedures Name Priority Associated Diagnoses Date/Ti me ESOPHAGOGASTRODUODENOSCOPY Eosinophilic esophagitis Esophageal dysphagia documented as of this encounter Procedures Procedure Name Priority Date/Time Associated Diagnosis Comments UA MICROSCOPIC WITH REFLEX TO CULTURE Routine 02/27/2024 10:34 AM CDT Bacterial vaginosis UA MACROSCOPIC WITH REFLEX TO MICRO AND CULTURE Routine 02/27/2024 10:34 AM CDT Bacterial vaginosis WET PREPARATION Routine 02/27/2024 10:34 AM CDT Vagina, candidiasis documented in this encounter Results * (ABNORMAL) UA Microscopic with Reflex to Culture (02/27/2024 10:34 AM CDT) Bacteria Urine Few(A) None Seen [...] PA-C LAB - URINE ORDERABL ES LABORATORY [facility] [address] [facility] (no room number, 1st floor of clinic) [place] [address], [facility] * (ABNORMAL) Wet prep - lab collect (02/27/2024 10:34 AM CDT) Trichomonas Absent Absent REINA 02/27/2024 11:00 AM CDT [facility] Yeast Present(A) Absent REINA 02/27/2024 11:00 AM CDT [facility] Clue Cells Present(A) Absent REINA 02/27/2024 11:00 AM CDT [facility] WBCs/high power field 3+(A) None REINA 02/27/2024 11:00 AM CDT [facility] Swab VAGINAL STRUCTURE / Unknown Non-blood Collection / Unknown 02/27/2024 10:34 AM CDT 02/27/2024 10:41 AM CDT Nicole Garcia PA-C LAB - MICRO GENERAL ORDERABLES [facility] [address] [facility] (no room number, 1st floor of clinic) [place] [address] * (ABNORMAL) UA Macroscopic with reflex to Microscopic and Culture - Clinic Collect (02/27/2024 10:34AM CDT) Color Urine Yellow Colorless, Straw, Light Yellow, Yellow 02/27/2024 10:50 AM CDT LABORATORY Appearance Urine Clear Clear 02/27/20 24 10:50 AM CDT LABORATORY Glucose Urine Negative Negative mg/dL 02/27/2024 10:50 AM CDT [facility] Bilirubin Urine Negative Negative 10:50 AM CDT [facility] Ketones Urine Negative Negative mg/dL 02/27/2024 10:50 AM CDT LABORATORY Specific Bayard Urine 1.020 1.003 - 1.035 02/27/2024 10:50 AM CDT LABORATORY Blood Urine Trace(A) Negative 02/27/2024 10:50 AM CDT LABORATORY pH Urine 7.0 5.0 - 7.0 02/27/2024 10:50 AM CDT [facility] Protein Albumin Urine Negative Negative mg/dL 02/27/2024 10:50 AM CDT LABORATORY Urobilinogen Urine 1.0 0.2, 1.0 E.U./dL 02/27/2024 10:50 AM CDT LABORATORY Nitrite Urine Negative Negative 02/27/2024 10:50 AM CDT LABORATORY Leukocyte Esterase Urine Negative Negative 02/27/2024 10:50 AM CDT LABORATORY Urine MID-STREAM URINE SPECIMEN / Unknown Non-blood Collection / Unknown 02/27/2024 10:34 AM CDT 02/27/2024 10:41 AM CDT Nicole Garcia PA-C LAB - URINE ORDERABL ES Performing Organization Address City/[facility]/ZIP Co de Phone Number LV LAB[facility]AT[facility] [address] [facility] (no room number, 1st floor of clinic) [place] [address], [facility] documented in this encounter Visit Diagnoses Diagnosis Vagina, candidiasis- Primary Candidiasis of vulva and vagina Bacterial vaginosis Vaginitis and vulvovaginitis, unspecified Nasal congestion Other diseases of nasal cavity and sinuses documented in this encounter Additional Health Concerns Assessment Noted Time PHQ-9 Depression Total Score: 3 02/07/20 24 9:33 AM CDT documented as of this encounter Care Teams Advertising Strategist Relationship Specialty Start Date End Date Esha Grimm PA-C [address] [place] [phone] PCP - General Family Medicine 05/04/23 Diana Desir, [facility] [address] [facility] [place] [address] Pharmacist Pharmacist 04/17/21 Rain Galaviz PA-C [address] [place] [address] [address] [place] [address] Physician Beading Installer Dermatology 04/28/21 Tavia Wyatt MD [address] [place] [address] [address] [place] [address] Dermatology 07/14/21 Erica Farrell APRN ROD MILL TENDER [address] [facility] [address] [place] [address] Nurse Practitioner Cardiovascular Disease 09/09/21 Rich Barrett MD [address] [address] Physician Ophthalmology 01/21/22 Neil Kent MD [address] [place], [place] [phone] Dermatology 02/24/22 Diana Desir, [facility] [address] [place], [place] 0[address] Assigned MTM Pharmacist 04/07/22 Livan Sharif MD [address] [facility] [address], [facility] [address] [place], [place] [address] Cardiovascular Disease 05/14/22 Catherine Cm MD [address] [facility] [address] [place] [address]885 Cardiovascular Disease 07/21/22 Valery Veronica, PAUcheC [address] [place], [place] [address]375 Physician Beading Installer Dermatology 07/21/22 Brea Quinn APRN ROD MILL TENDER [address] [place], [place] 507535 Nurse Practitioner Dermatology 09/21/22 Brea Quinn APRN ROD MILL TENDER [address] [place] [address] [phone] Assigned Surgical Provider 10/09/22 [place] [address] [facility] [address] [place], [place] [address] Assigned Musculoskeletal Provider 10/09/22 Alfonso Renteria MD [address] [address] [place], [place] [address] Assigned Neuroscience Provider 04/02/23 Radha Lomeli INSTRUMENTAL MUSIC TEACHER ROD MILL TENDER [address] [place], [place] 6[address] Assigned Heart and Vascular Provider 05/28/23 Jelena David OD [address] [facility] [place] [address] MD Ophthalmology 06/15/23 Esha Grimm PA-C [address] [place] [phone] Assigned PCP 07/16/23 Valery Veronica PA-C [address] [place] [address] [phone] Physician Beading Installer Dermatology 09/19/23 Rey Tay MD [address] [place] [address] 841015 Gastroenterology 09/20/23 Rocky Zepeda DO [address] [place] [address] 646635 Physician Gastroenterology 09/20/23 Philip Dumont MD [address] [place] [address] 022155 Physician Ophthalmology 09/22/23 Meredith Carrera PA-C [address] [place] [address] [phone] Assigned Gastroenterology Provider 11/01/23 Neil Kent MD [address] 034140 Dermatology 11/02/23 [place] [address] [facility] [address] Neurological Surgery 12/26/23 documented as of this encounter
--- OUTSIDE RECORDS SUMMARY | 2024-03-12 19:31 | XMS_ITS | Encounter Summary ---
Author Organization [place] Address [address] [place] [address] Care Team Providers Care Mobile Application Developer Name Role Phone Thang Diana [place] [facility] Unavailable Rain Galaviz PA-C Unavailable Tavia Wyatt MD Unavailable Unavailable Erica Farrell APRN INDUSTRIAL PIPEFITTER JOURNEYMAN Unavailable Rich Barrett MD Unavailable Neil Kent MD Unavailable Diana Desir Stanislav [facility] Unavailable [phone] Livan Sharif MD Unavailable Catherine Cm MD Unavailable + Valery Veronica PA-C Unavailable [phone] Brea Quinn SALT CUTTER INDUSTRIAL PIPEFITTER JOURNEYMAN Unavailable Brea Quinn SALT CUTTER INDUSTRIAL PIPEFITTER JOURNEYMAN Unavailable [phone] Jose Francisco Johnson MD Unavailable Alfonso Renteria MD Unavailable [phone] Esha Grimm PA-C Primary Care Provider [phone] Radha Lomeli SALT CUTTER INDUSTRIAL PIPEFITTER JOURNEYMAN Unavailable [phone] Jelena David OD Unavailable Esha GrimmC Unavailable [phone] Valery VeronicaC Unavailable [phone] Rey Tay MD Unavailable Rocky Zepeda DO Unavailable Philip Dumont MD Unavailable [phone] Meredith CarreraC Unavailable [phone] Neil Kent MD Unavailable Juan Pablo Emmanuel MD Unavailable [phone] Encounter Details Date Type Department Care Team [...] often do you attend [facility] or hindu services? 1 to 4 times [...] Answer Date Recorded PHQ-2 Score 0 10/25/2023 [facility] ional [facility] [...] exercise at this level? 30 min 03/10/2023 Dover Depression Scale Answer Date Recorded Dover Depression Score 5 01/14/2021 Last EPDS Self [...] Description 03/26/2024 11:20 AM CDT Office Visit [facility]ine [facility] Neurosurgery [address] [facility] 100 [place] [address] Ebony Cid, [facility] 500 [place], [place] [address] 03/27/2024 11:00 AM CDT Office Visit [facility] [address] [facility] [address] [place] [phone] Jelena David, [address] [facility] [place] [address] 04/19/2024 2:45 PM CDT Office Visit [facility] [address] [place] [address] Audrey Waite PA-C [address] [facility] [address], [facility] [address] [place], [place] 6[address] 05/08/2024 1:30 PM CDT Office Visit [facility] [address] [place] [phone] Lauren Claudio PA-C [address] [place] [address] [phone] Esha Grimm PA-C [address] [place] [address] 06/21/2024 2:00 PM PULP MACHINE OPERATOR Office Visit [facility] Neurology [facility] [address] [facility], [address] [place] [address] [place] [address] [place] [address] Johnny Penn MD [address] [place], [place] [phone] Scheduled Procedures Name Priority Associated Diagnoses Date/Ti ny ESOPHAGOGASTRODUODENOSCOPY Eosinophilic esophagitis Esophageal dysphagia documented as of this encounter Visit Diagnoses Not on filedocumented in this encounter Additional Health Concerns Assessment Noted Time PHQ-9 Depression Total Score: 4 06/20/20 23 8:40 AM PULP MACHINE OPERATOR documented as of this encounter Care Teams Mobile Application Developer Relationship Specialty Start Date End Date Esha Grimm PA-C [address] [place] [address] PCP - General Family Medicine 05/04/23 Diana Desir, [facility] [address]33 [place] [address] Pharmacist Pharmacist 04/17/21 Rain Galaviz PA-C [address] [place] [address] [address] [place] [phone] Physician Animal Hospital Clerk Dermatology 04/28/21 Tavia Wyatt MD [address] [place] [address] [address] [place] [address] Dermatology 07/14/21 Erica Farrell APRN INDUSTRIAL PIPEFITTER JOURNEYMAN [address] [place], [place] 273[address] Nurse Practitioner Cardiovascular Disease 09/09/21 Rich Barrett MD [address] [facility] [address] [place], [place] [address]055 Physician Ophthalmology 01/21/22 Neil Kent MD 500 [place], [place] 381445 Dermatology 02/24/22 [facility] 3033 [place], [place] 532066 Assigned MTM Pharmacist 04/07/22 Livan Sharif MD [address] [address] Cardiovascular Disease 05/14/22 Catherine mC MD [address] [address] Cardiovascular Disease 07/21/22 Valery Veronica, PA-C [address] [place] [address] 764075 Physician Animal Hospital Clerk Dermatology 07/21/22 Brea Quinn APRN INDUSTRIAL PIPEFITTER JOURNEYMAN 500 [place], [place] [phone] Nurse Practitioner Dermatology 09/21/22 Brea Quinn APRN INDUSTRIAL PIPEFITTER JOURNEYMAN [address]01 [place] [address] Assigned Surgical Provider 10/09/22 [place] [address] [address] [facility] 300 [place] [address] Assigned Musculoskeletal Provider 10/09/22 Alfonso Renteria MD 5775 [facility] 200 [place], [place] 0[address] Assigned Neuroscience Provider 04/02/23 Radha Lomeli APRN INDUSTRIAL PIPEFITTER JOURNEYMAN [address] [place] [phone] [place] [address] Assigned Heart and Vascular Provider 05/28/23 Jelena David OD [address] [place] [address] Ophthalmology 06/15/23 Esha Grimm PA-C [address] [place] [address] Assigned PCP 07/16/23 Valery Veronica PA-C [address] [place] [address] 837925 Physician Animal Hospital Clerk Dermatology 09/19/23 Rey Tay MD 9 [place], [place] 15[address] Gastroenterology 09/20/23 Rocky Zepeda DO [address] [place] [address] 398085 Physician Gastroenterology 09/20/23 Philip Dumont MD [address] [place] [address] 948675 Physician Ophthalmology 09/22/23 Meredith Carrera PA-C [address] [place] [address] 394435 Assigned Gastroenterology Provider 11/01/23 Neil Kent MD [address] 127660 Dermatology 11/02/23 [place] [address] [address] [facility] [address] [place], [place] 835[address] Neurological Surgery 12/26/23 documented as of this encounter
--- OUTSIDE RECORDS SUMMARY | 2024-03-12 19:31 | XMS_ITS | Encounter Summary ---
Author Organization [facility] Address [address] [place] [address] Care Team Providers Care Loom Fixer Helper Name Role Phone Thang Diana [place] [facility] Unavailable Rain Galaviz PA-C Unavailable Tavia Wyatt MD Unavailable Unavailable Erica Farrell APRN CHANGE NUMBER OPERATOR Unavailable Rich Barrett MD Unavailable Neil Kent MD Unavailable Diana Desir Stanislav [facility] Unavailable [phone] Livan Sharif MD Unavailable Catherine Cm MD Unavailable + Valery Veronica PA-C Unavailable [phone] Brea Quinn CONTENT MANAGEMENT SPECIALIST CHANGE NUMBER OPERATOR Unavailable Brea Quinn CONTENT MANAGEMENT SPECIALIST CHANGE NUMBER OPERATOR Unavailable Jose Francisco Johnson MD Unavailable Alfonso Renteria MD Unavailable + [phone] Esha Grimm PA-C Primary Care Provider [phone] Radha Lomeli CONTENT MANAGEMENT SPECIALIST CHANGE NUMBER OPERATOR Unavailable [phone] Jelena David OD Unavailable [phone] Esha Grimm PA-C Unavailable [phone] Valery Veronica PA-C Unavailable [phone] Rey Tay MD Unavailable Rocky Zepeda DO Unavailable Philip Dumont MD Unavailable [phone] Meredith Carrera PA-C Unavailable [phone] Neil Kent MD Unavailable Juan Pablo Emmanuel MD Unavailable [phone] Audrey Waite PA-C Unavailable [phone] Encounter Details Date Type Department Care Team (Late st Contact Info) Description 02/01/2024 MyC Medical Advice [facility] [address], [address] [place] [address] Macy Pinedo, RN Social History Tobacco [...] Answer Date Recorded PHQ-2 Score 0 10/25/2023 [facility] - [...] exercise at this level? 30 min 03/10/2023 [place] Depression Scale Answer Date Recorded [place] [...] Description 03/26/2024 11:20 AM CDT Office Visit [facility] 1747 [facility] 100 [place] [address] Ebony Cid, CONTENT MANAGEMENT SPECIALIST CHANGE NUMBER OPERATOR 500 [place], [place] 118625 03/27/2024 11:00 AM CDT Office [facility] 3305 [facility] [address] [place] [phone] Jelena David, 3305 [facility] [place] [address] 04/19/2024 2:45 PM CDT Office Visit [facility] 830 [place] [phone] Audrey Waite PAUcheC 420 [facility] [address], [facility] 603 [place] [address] 05/08/2024 1:30 PM CDT Office Visit [facility] [address] [place] [address] Lauren Claudio PA-C [address] [place] [address] Esha Grimm PA-C [id number] [place] [address] 06/21/2024 2:00 PM INSPECTOR FINAL ASSEMBLY ELECTRICAL Office Visit [facility] [address], [address] [place] [address] [place] [address] [place] [address] Johnny Penn MD 6545 [place] [address] Scheduled Procedures Name Priority Associated Diagnoses Date/Ti id ESOPHAGOGASTRODUODENOSCOPY Eosinophilic esophagitis Esophageal dysphagia documented as of this encounter Visit Diagnoses Not on filedocumented in this encounter Additional Health Concerns Assessment Noted Time PHQ-9 Depression Total Score: 4 06/20/20 23 8:40 AM INSPECTOR FINAL ASSEMBLY ELECTRICAL documented as of this encounter Care Teams Loom Fixer Helper Relationship Specialty Start Date End Date Esha Grimm PA-C [id number] [place] [address] PCP - General Family Medicine 05/04/23 Diana Desir, [facility] [address] [facility] [place] [place] [address] Pharmacist Pharmacist 04/17/21 Rain Galaviz PA-C [address] [place] [address] [address] [place] [address] Physician Vacuum Cleaner Operator Dermatology 04/28/21 Tavia Wyatt MD [address] [place] [address] [address] [place] [address] Dermatology 07/14/21 Erica Farrell APRN CHANGE NUMBER OPERATOR [address] [place], [place] 7737[address] Nurse Practitioner Cardiovascular Disease 09/09/21 Rich Barrett MD [address] [place] [address] 283875 Physician Ophthalmology 01/21/22 Neil Kent MD [address] [place] [address] 822195 Dermatology 02/24/22 [facility] [address] [place] [address] 793656 Assigned [place] Pharmacist 04/07/22 Livan Sharif MD [address], [facility]00 [place], [place] [address] Cardiovascular Disease 05/14/22 Catherine Cm MD [address] [facility]00 [place], [place] [address] Cardiovascular Disease 07/21/22 Valery Veronica PA-C [address] [place] [address] Physician Vacuum Cleaner Operator Dermatology 07/21/22 Brea Quinn APRN CHANGE NUMBER OPERATOR 500 [place], [place] 266565 Nurse Practitioner Dermatology 09/21/22 Brea Quinn APRN CHANGE NUMBER OPERATOR 6401 [place] [address] Assigned Surgical Provider 10/09/22 [place] [address] [address] Assigned Musculoskeletal Provider 10/09/22 Alfonso Renteria MD [address] 302356 Assigned Neuroscience Provider 04/02/23 Radha Lomeli APRN CHANGE NUMBER OPERATOR [address] [address] Assigned Heart and Vascular Provider 05/28/23 Jelena David OD [address] [facility] [place] [address] Ophthalmology 06/15/23 Esha Grimm PA-C [address] [place] [address] Assigned PCP 07/16/23 Valery Veronica PA-C 909 [place], [place] 824485 Physician Vacuum Cleaner Operator Dermatology 09/19/23 Rey Tay MD 909 [place], [place] 367165 MD Gastroenterology 09/20/23 Rocky Zepeda DO 500 [place] [address] Physician Gastroenterology 09/20/23 Philip Dumont MD 516 [place], [place] 415705 Physician Ophthalmology 09/22/23 Meredith Carrera PA-C 9 [place] [address] Assigned Gastroenterology Provider 11/01/23 Neil Kent MD [address] 626690 Dermatology 11/02/23 [place] [address] [facility] [place], [place] 241217 Neurological Surgery 12/26/23 Audrey Waite PA-C 500 [place] [address] Physician Vacuum Cleaner Operator Dermatology 02/28/24 documented as of this encounter
--- OUTSIDE RECORDS SUMMARY | 2024-03-12 19:31 | XMS_ITS | Encounter Summary ---
Author Organization [facility] Address [address] [place] [address] Care Team Providers Care Disability Counselor Name Role Phone Thang Diana [place] [facility] Unavailable Rain Galaviz PA-C Unavailable [phone] Tavia Wyatt MD Unavailable Unavailable Erica Farrell APRN PHARMACY RETAIL SUPPORT SPECIALIST Unavailable Rich Barrett MD Unavailable Neil Kent MD Unavailable Diana Desir Stanislav [facility] Unavailable [phone] Livan Sharif MD Unavailable Catherine Cm MD Unavailable + Valery Veronica PA-C Unavailable [phone] Brea Quinn [facility] RETAIL SUPPORT SPECIALIST Unavailable Brea Quinn [facility] RETAIL SUPPORT SPECIALIST Unavailable [phone] Jose Francisco Johnson MD Unavailable Alfonso Renteria MD Unavailable + [phone] Esha Grimm PA-C Primary Care Provider Radha Lomeli [facility] RETAIL SUPPORT SPECIALIST Unavailable [phone] Jelena David OD Unavailable [phone] Esha GrimmC Unavailable [phone] Valery VeronicaC Unavailable [phone] Rey Tay MD Unavailable Rocky Zepeda DO Unavailable Philip Dumont MD Unavailable [phone] Meredith CarreraC Unavailable [phone] Neil Kent MD Unavailable Juan Pablo Emmanuel MD Unavailable [phone] Encounter Details Date Type Department Care Team [...] you attend [facility] or taoist services? 1 to 4 times [...] Answer Date Recorded PHQ-2 Score 1 02/07/2024 [facility] - Occupational Stress Questionnaire Answer Date [...] Visit [facility] 1747 [facility] 100 [place] [address] Ebony Cid, RO[facility]ED [place] CROSSCUTTER [facility] 500 [place], [place] 5[address] 03/27/2024 11:00 AM CDT Office Visit [facility] 3305 [facility] [address] [place] [phone] Jelena David, 3305 [facility] [place] [address] 04/19/2024 2:45 PM CDT Office Visit [facility] 830 [place] [address] Audrey Waite PA-C 420 [facility] [address], [facility] 603 [place], [place] [address] 05/08/2024 1:30 PM CDT Office Visit [facility] [address] [place] [phone] Lauren Claudio PA-C [address] [place] [address] [phone] Esha Grimm PA-C [address] [place] [address] 06/21/2024 2:00 PM SUPERVISOR EXTRUDING DEPARTMENT Office Visit [facility] 6545 [facility], [address] [place] [address] [place] [address] [place] [address] Johnny Penn MD 2776 [place], [place] [phone] Scheduled Procedures Name Priority Associated Diagnoses Date/Ti ne ESOPHAGOGASTRODUODENOSCOPY Eosinophilic esophagitis Esophageal dysphagia documented as of this encounter Visit Diagnoses Not on filedocumented in this encounter Additional Health Concerns Assessment Noted Time PHQ-9 Depression Total Score: 3 02/07/20 24 9:33 AM CDT documented as of this encounter Care Teams Disability Counselor Relationship Specialty Start Date End Date Esha Grimm PA-C [address] [place] [address] PCP - General Family Medicine 05/04/23 Diana Desir, [facility] 3033 [place] [address] Pharmacist Pharmacist 04/17/21 Rain Galaviz PA-C [address] [place] [address] [address] [facility] [address] Physician Ginseng Farmer Dermatology 04/28/21 Tavia Wyatt MD [address] [facility] [address] [place] [address] Dermatology 07/14/21 Erica Farrell APRN PHARMACY RETAIL SUPPORT SPECIALIST [address] [place], [place] [address] Nurse Practitioner Cardiovascular Disease 09/09/21 Rich Barrett MD 516 [facility] 9A [place], [place] 948625 Physician Ophthalmology 01/21/22 Neil Kent MD 500 [place], [place] [address] Dermatology 02/24/22 [facility] 3033 [place], [place] 163656 Assigned MTM Pharmacist 04/07/22 Livan Sharif MD [address] [address] Cardiovascular Disease 05/14/22 Catherine Cm MD [address] 814165 Cardiovascular Disease 07/21/22 Valery Veronica, PA-C [address] [place] [address] 696475 Physician Ginseng Farmer Dermatology 07/21/22 Brea Quinn APRN PHARMACY RETAIL SUPPORT SPECIALIST 500 [place], [place] 6109[address] Nurse Practitioner Dermatology 09/21/22 Brea Quinn APRN PHARMACY RETAIL SUPPORT SPECIALIST 6401 [place] [address] Assigned Surgical Provider 10/09/22 [place] [address] [address] [facility] 300 [place] [address] Assigned Musculoskeletal Provider 10/09/22 Alfonso Renteria MD [address]75 [facility] [facility] 200 [place], [place] 8[address]796 Assigned Neuroscience Provider 04/02/23 Radha Lomeli APRN PHARMACY RETAIL SUPPORT SPECIALIST [address] [place] 6396200 [place] [address] Assigned Heart and Vascular Provider 05/28/23 Jelena David OD [address] [facility] [address] Ophthalmology 06/15/23 Esha Grimm PA-C [address] [place] [address] Assigned PCP 07/16/23 Valery Veronica PA-C [address] [place] [address] 119765 Physician Ginseng Farmer Dermatology 09/19/23 Rey Tay MD 9 [place], [place] 329705 Gastroenterology 09/20/23 Rocky Zepeda DO [address] [place] [address] 212695 Physician Gastroenterology 09/20/23 Philip Dumont MD [address] [place] [address] 185975 Physician Ophthalmology 09/22/23 Meredith Carrera PA-C [address] [place] [address] 419495 Assigned Gastroenterology Provider 11/01/23 Neil Kent MD [address] 310730 Dermatology 11/02/23 [place] [address] [address] [facility] [place], [place] 416437 Neurological Surgery 12/26/23 documented as of this encounter
--- OUTSIDE RECORDS SUMMARY | 2024-03-12 19:31 | XMS_ITS | Encounter Summary ---
Author Organization [facility] [place] [facility] Address [address] [place] [address] Care Team Providers Care Telephone Directory Deliverer Name Role Phone Thang Diana [place] [facility] Unavailable [phone] Rain Galaviz PA-C Unavailable Tavia Wyatt MD Unavailable Unavailable Erica Farrell APRN CORPORATE QUALITY ASSURANCE MANAGER Unavailable Rich Barrett MD Unavailable Neil Kent MD Unavailable Diana Desir Stanislav [facility] Unavailable [phone] Livan Sharif MD Unavailable Catherine Cm MD Unavailable + Valery Veronica PA-C Unavailable [phone] Brea Quinn YARD HOSTLER CORPORATE QUALITY ASSURANCE MANAGER Unavailable Brea Quinn YARD HOSTLER CORPORATE QUALITY ASSURANCE MANAGER Unavailable Jose Francisco Johnson MD Unavailable Alfonso Renteria MD Unavailable + [phone] Esha Grimm PA-C Primary Care Provider Radha Lomeli YARD HOSTLER CORPORATE QUALITY ASSURANCE MANAGER Unavailable [phone] Jelena David OD Unavailable Esha Grimm PA-C Unavailable [phone] Valery Veronica PA-C Unavailable [phone] Rey aTy MD Unavailable Rocky Zepeda Unavailable Philip Dumont MD Unavailable [phone] Meredith Carrera PA-C Unavailable Neil Kent MD Unavailable Juan Pablo Emmanuel MD Unavailable [phone] Reason for Visit * Reason Comments STD [...] Description 02/07/2024 10:00 AM CDT Office Visit [address] [address] Lauren Claudio PA-C [address] [place] [address] Yeast infection of the vagina (Primary [...] Answer Date Recorded PHQ-2 Score 1 02/07/2024 [facility] - [...] exercise at this level? 30 min 03/10/2023 [place] Depression Scale Answer Date Recorded [place] Depression Score 5 01/14/2021 Last EPDS [...] Visit [facility] 1747 [facility] [address] [place] [address] Ebony Cid, YARD HOSTLER CORPORATE QUALITY ASSURANCE MANAGER 500 [place], [place] [address]455 03/27/2024 11:00 AM CDT Office Visit [facility] 3305 [facility] [address] [place] [phone] Jelena David, [address] [place] [address] 04/19/2024 2:45 PM CDT Office Visit [facility] [address] [place] [phone] Audrey Waite PA-C 420 [facility] [address]385, [facility] 603 [employer] [place] [place] [address] 05/08/2024 1:30 PM CDT Office Visit [facility] [address] [place] [phone] Lauren Claudio PA-C [address] [place], [place] [phone] Esha Grimm PA-C [address] [place] [phone] 06/21/2024 2:00 PM JOINT SETTER Office Visit [facility] [place] 6545 [facility], [address] [place] [phone] [place] [address] [place], [place] [phone] Johnny Penn MD [address]342 [place] 590905 Scheduled Procedures Name Priority Associated Diagnoses Date/Ti [...] LAB - BLOOD ORDERA BLES [facility]X [facility]AT[facility] Clinic - [facility] Lab [address] Lab (no room number, 1st floor of clinic) [place] [address], [facility] [phone] * Basic metabolic panel (Ca, Cl, CO2, [...] LAB - BLOOD ORDERA BLES [facility] 500 [facility], [address] * Treponema Abs w Reflex to RPR and Titer (02/07/2024 10:08 AM CDT) Treponema Antibody Total Nonreactive Nonreactive 02/07/2024 8:21 PM CDT SPECIALTY CORE/PROT/EN DO Blood BLOOD SPECIMEN / Unknown Venipuncture / Unknown 02/07/2024 10:08 AM CDT 02/07/2024 10:13 AM CDT Lauren Claudio PA-C LAB - BLOOD ORDERA BLES SPECIALTY CORE/PROT/ENDO Specialty Core/Prot/Endo 500 [facility], Room [address] [place] [address] * HIV Antigen Antibody Combo (02/07/2024 10:08 [...] LAB - BLOOD ORDERA BLES [facility] 500 [facility], Room [address]221 [place] [address], [facility] * Chlamydia trachomatis/Neisseria gonorrhoeae by PCR - Clinic Collect (02/07/2024 10:08 AM CDT) Chlamydia Trachomatis Negative Negative 02/07/2024 6:31 PM CDT [facility] Comment: Negative for C. trachomatis rRNA by drafter castings mediated amplification. A negative result by drafter castings mediated amplification does not preclude the presence of infection because results are dependent on proper and adequate collection, absence of inhibitors and sufficient rRNA to be detected. Neisseria gonorrhoeae Negative Negative 02/07/2024 6:31 PM CDT [facility] Comment:Negative for N. gono rrhoeae rRNA by drafter castings mediated amplification. A negative result by drafter castings mediated amplification does not preclude the presence of C. trachomatis infection because results are dependent on proper and adequate collection, absence of inhibitors and sufficient rRNA to be detected. Swab VAGINAL STRUCTURE / Unknown Non-blood Collection / Unknown 02/07/2024 10:08 AM CDT 02/07/2024 10:13 AM CDT Lauren Claudio PA-C LAB - MICRO GENERA L ORDERABLES Performing Organization Address City/[facility]/ZIP Co de Phone Number [facility] Inf. Diseases Diag. Lab 500 [facility], [address] [place] [address], [facility] * (ABNORMAL) Wet prep - [...] - MICRO GENERA L ORDERABLES CR LABORATORY [facility] Clinic - [facility] [address] [facility] (no room number, 1st floor of clinic) [place] [address], [facility] [phone] documented in this encounter Visit Diagnoses Diagnosis Yeast infection of the vagina- Primary Candidiasis of vulva and vagina Bacterial vaginosis Vaginitis and vulvovaginitis, unspecified Vaginal discharge Leukorrhea, not specified as infective Screening examination for venereal disease Chest tightness Other chest pain documented in this encounter Additional Health Concerns Assessment Noted Time PHQ-9 Depression Total Score: 3 02/07/20 24 9:33 AM CDT documented as of this encounter Care Teams Telephone Directory Deliverer Relationship Specialty Start Date End Date Esha Grimm PA-C [address] [facility] [place] [address] PCP - General Family Medicine 05/04/23 Diana Desir, [facility] 3033 [place] [address] Pharmacist Pharmacist 04/17/21 Rain Galaviz PA-C [address] [place] [address] [place] [address] Physician Mechanical Design Technician Dermatology 04/28/21 Tavia Wyatt MD [address] [place] [address] [place] [address] Dermatology 07/14/21 Erica Farrell APRN CORPORATE QUALITY ASSURANCE MANAGER [address] [place], [place] 9[address]455 Nurse Practitioner Cardiovascular Disease 09/09/21 Rich Barrett MD 516 [facility] [address] [employer] [place] [place], [place] [address] Physician Ophthalmology 01/21/22 Neil Kent MD 500 [place], [place] 4729[address] Dermatology 02/24/22 Diana Desir, [facility] 3033 [place], [place] 129316 Assigned [facility] Pharmacist 04/07/22 Livan Sharif MD [address], [facility]00 [place], [place] 0413[address] Cardiovascular Disease 05/14/22 Catherine Cm MD 6405 [facility] [address] 033[address] Cardiovascular Disease 07/21/22 Valery Veronica, PA-C [address] [place] [address] 173995 Physician Mechanical Design Technician Dermatology 07/21/22 Brea Quinn APRN CORPORATE QUALITY ASSURANCE MANAGER 500 [place], [place] 357935 Nurse Practitioner Dermatology 09/21/22 Brea Quinn APRN CORPORATE QUALITY ASSURANCE MANAGER [address] [place] [address] [place] 082475 [phone] Assigned Surgical Provider 10/09/22 [place] [address] [address] [facility] 300 [place] [address] Assigned Musculoskeletal Provider 10/09/22 Alfonso Renteria MD [address] [facility] 200 [place] [address] Assigned Neuroscience Provider 04/02/23 Radha Lomeli APRN CORPORATE QUALITY ASSURANCE MANAGER [address] [place] [address] Assigned Heart and Vascular Provider 05/28/23 Jelena David OD [address] [facility] [address] Ophthalmology 06/15/23 Esha Grimm PA-C [address] [place] [address]657[address] Assigned PCP 07/16/23 Valery Veronica PA-C [address] [place] [address] Physician Mechanical Design Technician Dermatology 09/19/23 Rey Tay MD [address] [place] [address] 840655 Gastroenterology 09/20/23 Rocky Zepeda DO [address] [place] [address] 698725 Physician Gastroenterology 09/20/23 Philip Dumont MD 516 [place], [place] 303905 Physician Ophthalmology 09/22/23 Meredith Carrera PA-C 909 [place], [place] 669265 Assigned Gastroenterology Provider 11/01/23 Neil Kent MD [address] 208630 Dermatology 11/02/23 [place] [address] [place], [place] 05[address]77 Neurological Surgery 12/26/23 documented as of this encounter
--- OUTSIDE RECORDS SUMMARY | 2024-03-12 19:31 | XMS_ITS | Encounter Summary ---
Author Organization [facility] Address [address] [place] [address] Care Team Providers Care Office Machine Repair Shop Supervisor Name Role Phone Thang [place] [facility] Unavailable Rain Galaviz PA-C Unavailable Tavia Wyatt MD Unavailable Unavailable Erica Farrell APRN BACK LINE COOK Unavailable Rich Barrett MD Unavailable Neil Kent MD Unavailable Diana Desir Stanislav [facility] Unavailable [phone] Livan Sharif MD Unavailable Catherine Cm MD Unavailable + Valery Veronica PA-C Unavailable [phone] Brea Quinn ANESTHESIA ASSOCIATE BACK LINE COOK Unavailable Brea Quinn ANESTHESIA ASSOCIATE BACK LINE COOK Unavailable Jose Francisco Johnson MD Unavailable Alfonso Renteria MD Unavailable + [phone] Esha Grimm PA-C Primary Care Provider [phone] Radha Lomeli ANESTHESIA ASSOCIATE BACK LINE COOK Unavailable [phone] Jelena David OD Unavailable Esha GrimmC Unavailable [phone] Valery VeronicaC Unavailable [phone] Rey Tay MD Unavailable Rocky Zepeda DO Unavailable Philip Dumont MD Unavailable [phone] Meredith CarreraC Unavailable [phone] Neil Kent MD Unavailable Juan Pablo Emmanuel MD Unavailable [phone] Encounter Details Date Type Department Care Team [...] How often do you attend [facility] or restoration services? 1 to 4 times per year [...] Recorded PHQ-2 Score 0 10/25/2023 [facility] of Occupat ional [facility] - Occupational Stress Questionnaire Answer Date [...] exercise at this level? 30 min 03/10/2023 [place] Depression Scale Answer Date Recorded [place] Depression Score 5 01/14/2021 Last EPDS Self [...] Description 03/26/2024 11:20 AM CDT Office Visit [facility] Spine and Neurosurgery 1747 [facility] 100 [place] [address] Ebony Cid, ANESTHESIA ASSOCIATE [facility] 500 [place], [place] 6[address]235 03/27/2024 11:00 AM CDT Office Visit [facility] [address] [facility] [address] [place] [phone] Jelena David, [address] [facility] [place] [address] 04/19/2024 2:45 PM CDT Office Visit [facility] 830 [place] [address] Audrey Waite PA-C 420 [facility] [address]385, [facility] 603 [place], [place] [address] 05/08/2024 1:30 PM CDT Office Visit [facility] [address] [place] [phone] Lauren Claudio PA-C [address] [place] [address] [phone] Esha Grimm PA-C [address] [place] [address] 06/21/2024 2:00 PM LEAD RETAIL SALES ASSOCIATE Office Visit [facility] Neurology [facility] [address] [facility], [address] [place] [address] [place] [address] [place] [address] Johnny Penn MD [address]13 [place], [place] [phone] Scheduled Procedures Name Priority Associated Diagnoses Date/Ti dc ESOPHAGOGASTRODUODENOSCOPY Eosinophilic esophagitis Esophageal dysphagia documented as of this encounter Visit Diagnoses Not on filedocumented in this encounter Additional Health Concerns Assessment Noted Time PHQ-9 Depression Total Score: 4 06/20/20 23 8:40 AM LEAD RETAIL SALES ASSOCIATE documented as of this encounter Care Teams Office Machine Repair Shop Supervisor Relationship Specialty Start Date End Date Esha Grimm PA-C [address] [place] [address] PCP - General Family Medicine 05/04/23 Diana Desir, [facility] 30[address] [place] [address] Pharmacist Pharmacist 04/17/21 Rain Galaviz PA-C [address] [place] [address] [address] [facility] [place] [phone] Physician Desulphurizer Operator Dermatology 04/28/21 Tavia Wyatt MD [address] [place] [address] [address] [place] [address] Dermatology 07/14/21 Erica Farrell APRN BACK LINE COOK [address] [place], [place] 3530[address] Nurse Practitioner Cardiovascular Disease 09/09/21 Rich Barrett MD 516 [facility] 9A [place], [place] 6[address] Physician Ophthalmology 01/21/22 Neil Kent MD 500 [place], [place] 6[address]995 Dermatology 02/24/22 [facility] 3033 [place], [place] 250456 Assigned MTM Pharmacist 04/07/22 Livan Sharif MD [address] [address] Cardiovascular Disease 05/14/22 Catherine Cm MD [address] [address] Cardiovascular Disease 07/21/22 Valery Veronica, PA-C [address] [place] [address] 332745 Physician Desulphurizer Operator Dermatology 07/21/22 Brea Quinn APRN BACK LINE COOK 500 [place], [place] [phone] Nurse Practitioner Dermatology 09/21/22 Brea Quinn APRN BACK LINE COOK 6401 [place] [address] Assigned Surgical Provider 10/09/22 [place] [address] [facility] 300 [place] [address] Assigned Musculoskeletal Provider 10/09/22 Alfonso Renteria MD [address] [facility] 200 [place], [place] 163216 Assigned Neuroscience Provider 04/02/23 Radha Lomeli APRN BACK LINE COOK [address] [phone] [place] [address] Assigned Heart and Vascular Provider 05/28/23 Jelena David OD [address] [facility] [place] [address] Ophthalmology 06/15/23 Esha Grimm PA-C [address] [place] [address] Assigned PCP 07/16/23 Valery Veronica PA-C [address] [place] [address] 384[address] Physician Desulphurizer Operator Dermatology 09/19/23 Rey Tay MD 9 [place], [place] 9975[address] Gastroenterology 09/20/23 Rocky Zepeda DO [address] [place] [address] 597785 Physician Gastroenterology 09/20/23 Philip Dumont MD [address] [place] [address] 631685 Physician Ophthalmology 09/22/23 Meredith Carrera PA-C [address] [place] [address] 775945 Assigned Gastroenterology Provider 11/01/23 Neil Kent MD [address] [address] Dermatology 11/02/23 [place] [address] [facility] [place], [place] 0250[address] Neurological Surgery 12/26/23 documented as of this encounter
--- OUTSIDE RECORDS SUMMARY | 2024-03-12 19:31 | XMS_ITS | Encounter Summary ---
Author Organization [facility] Address [address] [place] [address] Care Team Providers Care Commercial Agent Name Role Phone Thang [place] [facility] Unavailable Rain Galaviz PA-C Unavailable Tavia Wyatt MD Unavailable Unavailable Erica Farrell APRN PASSENGER BARGE MASTER Unavailable Rich Barrett MD Unavailable Neil Kent MD Unavailable Diana Desir Stanislav [facility] Unavailable [phone] Livan Sharif MD Unavailable Catherine Cm MD Unavailable + Valery Veronica PA-C Unavailable [phone] Brea Quinn DINING ROOM ATTENDANT CAFETERIA PASSENGER BARGE MASTER Unavailable Brea Quinn DINING ROOM ATTENDANT CAFETERIA PASSENGER BARGE MASTER Unavailable Jose Francisco Johnson MD Unavailable Alfonso Renteria MD Unavailable + [phone] Esha Grimm PA-C Primary Care Provider Radha Lomeli DINING ROOM ATTENDANT CAFETERIA PASSENGER BARGE MASTER Unavailable [phone] Jelena David OD Unavailable Esha Grimm Adam PA-C Unavailable [phone] Michela Veronicanarayan Begum PA-C Unavailable Rey Tay MD Unavailable Rocky Zepeda DO Unavailable Philip Dumont MD Unavailable Meredith Carrera Karyna PA-C Unavailable [phone] Neil Kent MD Unavailable Juan Pablo Emmanuel MD Unavailable Reason for Referral * Consultation (Routine: Next available opening) - Pending Review Specialty Diagnoses / Procedures Referred By Contparviz t Referred To Contact Diagnoses [place] [address] [address] [place] [address] Referral ID Status Reason Start Date Expiration Date V isits Requested Visits Authorized [id number] Pending Review 01/23/2024 01/22/2025 1 1 Question Answer Reason for Referral: General Neurology Scheduling Instructions: [facility] will call you to coordinate your care as prescribed by your provider. If you don't hear from a technical sales representatives within 2 business days, please call . Additional Information: arm paraesthesias Comments Please be aware that coverage of these services is subject to the terms and limitations of your health insurance plan. Call member services at your health plan with any benefit or coverage questions. [facility] will call you to coordinate your care as prescribed by your provider. If you don't hear from a technical sales representatives within 2 business days, please call . * Consultation (Routine: Next available opening) - Pending Review Specialty Diagnoses / Procedures Referred By Contparviz t Referred To Contact Diagnoses [place] [address] [address] [place] [address] Vania Ibrahim MD 420 [facility] 297 [place] [address] Referral ID Status Reason Start Date Expiration Date V isits Requested Visits Authorized [id number] Pending Review 01/23/2024 01/22/2025 1 1 Scheduling Instructions Schedule with Dr. Ibrahim. Question Answer Referral Type: Procedure Procedure: Muscle Injection Injection Type: Trigger Point Scheduling Instructions: [facility] will call you to coordinate your care as prescribed by your provider. If you don't hear from a technical sales representatives within 2 business days, please call . Additional Information: Trigger point injections for the neck Comments Please be aware that coverage of these services is subject to the terms and limitations of your health insurance plan. Call member services at your health plan with any benefit or coverage questions. [facility] will call you to coordinate your care as prescribed by your provider. If you don't hear from a technical sales representatives within 2 business days, please call . Reason for Visit * Reason Comments Consult Encounter Details Date Type Department Care Team ([facility] Contact Info) Description 01/23/2024 10:00 AM CDT Office Visit [facility] Neurology Clinics [address], [address] [place] [address] [place] [address] [place] [address] Neck pain (Primary Dx); Paresthesia [...] Date Recorded PHQ-2 Score 0 10/25/2023 [facility] - Occupational Stress [...] for trigger point injections with Dr. Ibrahim [facility] will call you to coordinate your care as prescribed by your provider. If you don't hear from a technical sales representatives within 2 business days, please call . Referral to neurology. [facility] will call you to coordinate your care as prescribed by your provider. If you don't hear from a technical sales representatives within 2 business days, please call . Please call us if you have any further questions or concerns. [facility] Neurosurgery Clinic documented in this encounter Progress [...] Ablation SVT; Surgeon: Galo Burrell MD; Location: [facility] CARDIAC COMMUNITY HEALTH NURSE SUPERVISOR ESOPHAGOSCOPY, GASTROSCOPY, DUODENOSCOPY (EGD), COMBINED N/A [...] I.U.D. Other Topics Concern Parent/sibling w/ CABG, MS or angioplasty before 65F 55M? Not Asked [...] 30 min Stress: Stress Concern Present (03/10/2023) [facility] [place] [facility] - Occupational Stress Questionnaire Feeling of Stress : To some extent Social Connections: Moderately Isolated (03/10/2023) Social Connection and Isolation Panel [NHANES] Frequency of Communication with Friends and Family: Three times a week Frequency of Social Gatherings with Friends and Family: Twice a week Attends Hinduism Services: 1 to 4 times per year [...] Description 03/26/2024 11:20 AM CDT Office Visit [facility] Spine and Neurosurgery 1747 [facility] 100 [place] [address] Ebony Cid, DINING ROOM ATTENDANT CAFETERIA [facility] 500 [place], [place] [address]85 03/27/2024 11:00 AM CDT Office Visit [facility] [address] [facility] [address] [place] [phone] Jelena David, [address]305 [facility] [place] [address] 04/19/2024 2:45 PM CDT Office Visit [facility] 830 [place] [address] Audrey Waite PA-C [address] [place] [address] [address]385, [facility] 603 [place] [address] 05/08/2024 1:30 PM CDT Office Visit [facility] [address] [place] [phone] Lauren Claudio PA-C [address] [place], [place] [phone] Esha Grimm PA-C [address] [place] [phone] 06/21/2024 2:00 PM MARKETING/SALES PERSON Office Visit [facility] Neurology Clinics - [place] [address] [place] [address], [address] [place] [address] [place] [address] [place] [address] Johnny Penn MD 3696 [place] [address] Scheduled Procedures Name Priority Associated Diagnoses Date/Ti ms ESOPHAGOGASTRODUODENOSCOPY Eosinophilic esophagitis Esophageal dysphagia Scheduled Referrals Name Type Priority Associated Diagnoses Orde r Schedule Spine Director Of Outpatient Services Referral Referral Routine: Next available opening Neck pain Expected: 01/23/2024 (Approximate), Expires: 01/22/2025 Adult Neurology Director Of Outpatient Services Referral Referral Routine: Next available opening Paresthesia of arm Expected: 01/23/2024 (Approximate), Expires: 01/22/2025 documented as of this encounter Visit Diagnoses Diagnosis Neck pain- Primary Cervicalgia Paresthesia of arm Disturbance of skin sensation Chiari I malformation (H) Compression of brain documented in this encounter Additional Health Concerns Assessment Noted Time PHQ-9 Depression Total Score: 4 06/20/20 23 8:40 AM MARKETING/SALES PERSON documented as of this encounter Care Teams Commercial Agent Relationship Specialty Start Date End Date Esha Grimm PA-C [address] [place] [phone] PCP - General Family Medicine 05/04/23 Diana Desir, [facility] 3033 [place] [address] Pharmacist Pharmacist 04/17/21 Rain Galaviz PA-C [address] [place] [address] [address] [place] [address] Physician Field Technical Specialist Dermatology 04/28/21 Tavia Wyatt MD [address] [place] [address] [address] [facility] [address] Dermatology 07/14/21 Erica Farrell APRN PASSENGER BARGE MASTER [address] [place] [address] Nurse Practitioner Cardiovascular Disease 09/09/21 Rich Barrett MD [address] [place] [address] [address] [place], [place] [address] Physician Ophthalmology 01/21/22 Neil Kent MD 500 [place], [place] [address]35 Dermatology 02/24/22 Diana Desir, [facility] 3033 [place] [address] Assigned MTM Pharmacist 04/07/22 Livan Sharif MD [address] [place] [address] Cardiovascular Disease 05/14/22 Catherine Cm MD [address] [place] 423225 Cardiovascular Disease 07/21/22 Valery Veronica PA-C 909 [place], [place] [address]395 Physician Field Technical Specialist Dermatology 07/21/22 Brea Quinn APRN PASSENGER BARGE MASTER 500 [place], [place] [address] Nurse Practitioner Dermatology 09/21/22 Brea Quinn APRN PASSENGER BARGE MASTER 6401 [place], [place] 882252 Assigned Surgical Provider 10/09/22 [place] [address] [facility] 300 [place], [place] [address] Assigned Musculoskeletal Provider 10/09/22 Alfonso Renteria MD [address] [facility] 200 [place], [place] [phone] Assigned Neuroscience Provider 04/02/23 Radha Lomeli APRN PASSENGER BARGE MASTER [address] [facility] [address] [place], [place] 8217[address] Assigned Heart and Vascular Provider 05/28/23 Jelena David OD [address] [place] [address] Ophthalmology 06/15/23 Esha Grimm PA-C [address] [place] [phone] Assigned PCP 07/16/23 Valery Veronica PA-C 9 [place] [address] Physician Field Technical Specialist Dermatology 09/19/23 Rey Tay MD [address] [place] [address] MD Gastroenterology 09/20/23 Rocky Zepeda DO [address] [place] [address] Physician Gastroenterology 09/20/23 Philip Dumont MD [address] [place] [address] Physician Ophthalmology 09/22/23 Meredith Carrera PA-C [address] [place] [address] Assigned Gastroenterology Provider 11/01/23 Neil Kent MD [address] [address] Dermatology 11/02/23 [place] [address] [place] [address] Neurological Surgery 12/26/23 documented as of this encounter
--- OUTSIDE RECORDS SUMMARY | 2024-03-12 19:32 | XMS_ITS | Encounter Summary ---
Author Organization [place] Address [address] [place] [address] Care Team Providers Care Genetic Counsellor Name Role Phone Thang Diana [place] [facility] Unavailable Rain Galaviz PA-C Unavailable Tavia Wyatt MD Unavailable Unavailable Erica Farrell APRN LOAN PROCESSOR Unavailable Rich Barrett MD Unavailable Neil Kent MD Unavailable Diana Desir Stanislav [facility] Unavailable [phone] Livan Sharif MD Unavailable Catherine Cm MD Unavailable + Valery Veronica PA-C Unavailable [phone] Brea Quinn STOCK CHECKER LOAN PROCESSOR Unavailable Brea Quinn STOCK CHECKER LOAN PROCESSOR Unavailable Jose Francisco Johnson MD Unavailable Alfonso Renteria MD Unavailable + [phone] Esha Grimm PA-C Primary Care Provider Radha Lomeli STOCK CHECKER LOAN PROCESSOR Unavailable [phone] Jelena David OD Unavailable Esha Grimm PA-C Unavailable [phone] Valery VeronicaC Unavailable [phone] Rey Tay MD Unavailable Duane Rocky DO Unavailable Philip Dumont MD Unavailable Meredith CarreraC Unavailable Neil Kent MD Unavailable Juan Pablo Emmanuel MD Unavailable Encounter Details Date Type Department Care Team (Late st Contact Info) Description 01/16/2024 Telephone [facility] [id number] [place] [address] Esha Grimm PA-C [id number] [place] [address] Social History Tobacco Use Types Packs/Day [...] Answer Date Recorded PHQ-2 Score 0 10/25/2023 [facility] [...] PM CDT Completed letter and available on [employer]. Esha Grimm PA-C on 01/17/2024 at 3:31 PM * Telephone Encounter - America Shahid CMA - 01/17/2024 11:10 AM CDT Pt will print letter from [employer] * Telephone Encounter - America Shahid CMA - 01/16/2024 4:11 PM CDT LM for pt to call back. * Telephone Encounter - Esha Grimm PA-C - 01/16/2024 4:01 PM CDT Can we call patient to see if this letter can be done electronically or if she needs a signed copy for school? I can write this tomorrow and have available at the front clerk for greens picker if needs to be a signed copy. Thanks! Esha Grimm PA-C * Telephone Encounter - America Shahid CMA - 01/16/2024 10:09 AM CDT Pt states she needs a letter stating the ER visits and the dates of the MRI for school. PT has ER follow up on 01/18/2024 but wants letter from PCP instead. Dates needed on the letter are: ER dates 01/07/2024 ([facility]) and 01/11/2024 ([facility]) Ortho dates are 01/05/2024 and 01/06/2024. * Telephone Encounter - Donna Artis - 01/16/2024 9:44 AM CDT General Call Reason for Call: patient called and needs a letter from Esha ALCALA at [facility] today. Patient was in the E/R and had MRI and was also seen at [facility] as well. Chest tightness and racing heartbeat. Orthopedics and MRI. Please contact patient. Thank you. What are your questions or concerns: yes Date of last appointment with provider: Aug 2023 Could we send this information to you in [employer] or would you prefer to receive a phone call?: Patient would prefer a phone call Okay to leave a detailed message?: Yes at Cell number on file: Telephone Information: documented in this encounter Plan of Treatment Upcoming Encounters Date Type Department Care Team (Late st Contact Info) Description 03/26/2024 11:20 AM CDT Office Visit [facility] Spine and Neurosurgery [address] [place], [place] [address], [place] [address] Ebony Cid, STOCK CHECKER LOAN PROCESSOR 500 [place] [address] 03/27/2024 11:00 AM CDT [facility] [address] [facility] [address] [place] [phone] Jelena David, OD [address] [facility] [place] [address] 04/19/2024 2:45 PM CDT Office Visit [facility] 830 [place] [phone] Aurdey Waite PA-C 420 [facility] [address]385, [facility] 603 [place], [place] [address] 05/08/2024 1:30 PM CDT Office Visit [facility] [address] [place] [phone] Lauren Claudio PA-C [address] [place], [place] [phone] Esha Grimm PA-C [address] [place] [phone] 06/21/2024 2:00 PM FULL SERVICE SUPERVISOR Office Visit [facility]rology [facility] [place] [address] [facility], [address] [place] [phone] [place] [address] [place], [place] [address] Johnny Penn MD [address] [place] [address] Scheduled Procedures Name Priority Associated Diagnoses Date/Ti vt ESOPHAGOGASTRODUODENOSCOPY Eosinophilic esophagitis Esophageal dysphagia documented as of this encounter Visit Diagnoses Not on filedocumented in this encounter Additional Health Concerns Assessment Noted Time PHQ-9 Depression Total Score: 4 06/20/20 23 8:40 AM FULL SERVICE SUPERVISOR documented as of this encounter Care Teams Genetic Counsellor Relationship Specialty Start Date End Date Esha Grimm PA-C [address] [place] [phone] PCP - General Family Medicine 05/04/23 Diana Desir, [facility] [address] [place], [place] 733436 Pharmacist Pharmacist 04/17/21 Rain Galaviz PA-C [address] [place] [address] [address] [place] [address] Physician Printed Circuit Board Panels Trimmer Dermatology 04/28/21 Tavia Wyatt MD [address] [place] [address] [address] [place] [address] Dermatology 07/14/21 Erica Farrell APRN LOAN PROCESSOR [address] [place] [address] Nurse Practitioner Cardiovascular Disease 09/09/21 Rich Barrett MD [address] 713[address] Physician Ophthalmology 01/21/22 Neil Kent MD [address] [place] [address] Dermatology 02/24/22 Diana Desir, [facility] 3033 [place], [place] 299096 Assigned [place] Pharmacist 04/07/22 Livan Sharif MD [address] [facility] [address] [place], [place] 6[address] Cardiovascular Disease 05/14/22 Catherine Cm MD [address] 095[address] Cardiovascular Disease 07/21/22 Valery Veronica, PA-C [address] [place] [address] 831465 Physician Printed Circuit Board Panels Trimmer Dermatology 07/21/22 Brea Quinn APRN LOAN PROCESSOR 500 [place], [place] 615225 Nurse Practitioner Dermatology 09/21/22 Brea Quinn APRN LOAN PROCESSOR [address] [place] [address] Assigned Surgical Provider 10/09/22 [place] [address] 772247 Assigned Musculoskeletal Provider 10/09/22 Alfonso Renteria MD 5775 [facility] 200 [place], [place] 265928 Assigned Neuroscience Provider 04/02/23 Radha Lomeli APRN LOAN PROCESSOR [address] [place] [address] Assigned Heart and Vascular Provider 05/28/23 Jelena David OD [address] [facility] [place] [address] MD Ophthalmology 06/15/23 Esha Grimm PA-C [address] [place] [phone] Assigned PCP 07/16/23 Valery Veronica PA-C [address] [place] [address] 275585 Physician Printed Circuit Board Panels Trimmer Dermatology 09/19/23 Rey Tay MD [address] [place] [address] 890205 Gastroenterology 09/20/23 Rocky Zepeda DO [address] [place] [address] 082685 Physician Gastroenterology 09/20/23 Philip Dumont MD [address] [place] [address] 979915 Physician Ophthalmology 09/22/23 Meredith Carrera PA-C [address] [place] [address] Assigned Gastroenterology Provider 11/01/23 Neil Kent MD [address] [place] [address] Dermatology 11/02/23 [place] [address] [place] [address] Neurological Surgery 12/26/23 documented as of this encounter
--- OUTSIDE RECORDS SUMMARY | 2024-03-12 19:32 | XMS_ITS | Encounter Summary ---
Author Organization [place] Address [address] [place] [address] Care Team Providers Care Meter Repairer Name Role Phone Thang Diana [place] [facility] Unavailable Rain Galaviz PA-C Unavailable Tavia Wyatt MD Unavailable Unavailable Erica Farrell APRN BRAILLE PROOFREADER Unavailable Rich Barrett MD Unavailable Neil Kent MD Unavailable Diana Desir Stanislav [facility] Unavailable [phone] Livan Sharif MD Unavailable Catherine Cm MD Unavailable + Valery Veronica PA-C Unavailable [phone] Brea Quinn BRAZING MACHINE OPERATOR AUTOMATIC BRAILLE PROOFREADER Unavailable Brea Quinn BRAZING MACHINE OPERATOR AUTOMATIC BRAILLE PROOFREADER Unavailable Jose Francisco Johnson MD Unavailable Alfonso Renteria MD Unavailable + [phone] Esha Grimm PA-C Primary Care Provider [phone] Radha Lomeli BRAZING MACHINE OPERATOR AUTOMATIC BRAILLE PROOFREADER Unavailable [phone] Jelena David OD Unavailable Esha Grimm Adam PA-C Unavailable [phone] Valery VeronicaC Unavailable [phone] Rey Tay MD Unavailable Rocky Zepeda Unavailable Philip Dumont MD Unavailable Meredith Carrera-C Unavailable Neil Kent MD Unavailable Juan Pablo Emmanuel MD Unavailable Reason for Visit * Reason Onset Date Comments Appointment 01/06/2024 Encounter Details Date Type Department Care Team (Late st Contact Info) Description 01/06/2024 Telephone [facility] Neurology [address], [address] [place] [address] [place] [address] [address] [place] [address] Appointment Social History Tobacco Use [...] exercise at this level? 30 min 03/10/2023 [place] Depression Scale Answer Date Recorded Jupiter [...] Pablo Emmanuel MD on 01/09/24 in our [place] location. A voicemail was left with a call back number if the patient has questions or would like to reschedule. documented in this encounter Plan of Treatment Upcoming Encounters Date Type Department Care Team (Late st Contact Info) Description 03/26/2024 11:20 AM CDT Office Visit [facility] Spine and Neurosurgery [address] [place] [address] [address] [place] [address] Ebony Cid, [facility] 500 [place] [address] 03/27/2024 11:00 AM CDT Office Visit [facility] [address] [place] [address] [address] [place] [phone] Jelena David, OD [address] [facility] [place] [address] 04/19/2024 2:45 PM CDT Office Visit [facility] 830 [place] [phone] Audrey Waite PA-C 420 [facility] B385, [facility] 603 [place], [place] 093465 05/08/2024 1:30 PM CDT Office Visit [facility] [address] [place] [phone] Lauren Claudio PA-C [address] [place], [place] [phone] Esha Grimm PA-C [address] [place] [address] 06/21/2024 2:00 PM CRIMINAL INVESTIGATOR Office Visit [facility]rology [facility] - [place] [address] [place] [address], [address] [place] [phone] [place] [address] [place] [address] Johnny Penn MD 6545 [facility] [place] [address] Scheduled Procedures Name Priority Associated Diagnoses Date/Ti nc ESOPHAGOGASTRODUODENOSCOPY Eosinophilic esophagitis Esophageal dysphagia documented as of this encounter Visit Diagnoses Not on filedocumented in this encounter Additional Health Concerns Assessment Noted Time PHQ-9 Depression Total Score: 4 06/20/20 23 8:40 AM CRIMINAL INVESTIGATOR documented as of this encounter Care Teams Meter Repairer Relationship Specialty Start Date End Date Esha Grimm PA-C [address] [place] [address] PCP - General Family Medicine 05/04/23 Diana Desir, [facility] [address] [place] [address] Pharmacist Pharmacist 04/17/21 Rain Galaviz PA-C [address] [place] [address] [address] [place] [address] Physician Head Insulation Board Saw Operator Dermatology 04/28/21 Tavia Wyatt MD [address] [place] [address] DR [address] [facility] [place] [place] [address] Dermatology 07/14/21 Erica Farrell APRN BRAILLE PROOFREADER [address] 2818800 [place], [place] 807015 Nurse Practitioner Cardiovascular Disease 09/09/21 Rich Barrett MD 516 [facility] 9A [place], [place] 246935 Physician Ophthalmology 01/21/22 Neil Kent MD 500 [place], [place] 968305 Dermatology 02/24/22 Diana Desir, [facility] [address] [place] [address] Assigned MTM Pharmacist 04/07/22 Livan Sharif MD [address], [facility] [address] [place] [address] Cardiovascular Disease 05/14/22 Catherine Cm MD [address] [facility] [address] [place] 173955 Cardiovascular Disease 07/21/22 Valery Veronica, PAUcheC 909 [place], [place] 617595 Physician Head Insulation Board Saw Operator Dermatology 07/21/22 Brea Quinn APRN BRAILLE PROOFREADER 500 [place], [place] [address] Nurse Practitioner Dermatology 09/21/22 Brea Quinn APRN BRAILLE PROOFREADER 6401 [facility] [place] 259022 Assigned Surgical Provider 10/09/22 [place] [address] [address] [facility] 300 [place] [address] Assigned Musculoskeletal Provider 10/09/22 Alfonso Renteria MD 5775 [facility] 200 [place], [place] 136906 Assigned Neuroscience Provider 04/02/23 Radha Lomeli APRN BRAILLE PROOFREADER [address] [place] [address] Assigned Heart and Vascular Provider 05/28/23 Jelena David OD [address] [facility] [address] Ophthalmology 06/15/23 Esha Grimm PA-C [address] [place] [address] Assigned PCP 07/16/23 Valery Veronica PA-C [address] [place] [address] 713985 Physician Head Insulation Board Saw Operator Dermatology 09/19/23 Rey Tay MD [address] [place] [address] MD Gastroenterology 09/20/23 Rocky Zepeda DO [address] [place] [address] Physician Gastroenterology 09/20/23 Philip Dumont MD [address] [place] [address] 011705 Physician Ophthalmology 09/22/23 Meredith Carrera PA-C [address] [place] [address] Assigned Gastroenterology Provider 11/01/23 Neil Kent MD [address] 817630 Dermatology 11/02/23 [place] [address] [place], [place] 716357 Neurological Surgery 12/26/23 documented as of this encounter
--- OUTSIDE RECORDS SUMMARY | 2024-03-12 19:32 | XMS_ITS | Encounter Summary ---
Author Organization [place] Address [address] [place] [address] Care Team Providers Care Sander And Buffer Name Role Phone Thang Diana [place] [facility] Unavailable Rain Galaviz PA-C Unavailable Tavia Wyatt MD Unavailable Unavailable Erica Farrell APRN MEDICAL RECORDS LIBRARY PROFESSOR Unavailable Rich Barrett MD Unavailable Neil Kent MD Unavailable Diana Desir Stanislav [facility] Unavailable [phone] Livan Sharif MD Unavailable Catherine Cm MD Unavailable + Valery Veronica PA-C Unavailable [phone] Brea Quinn TAPPING MACHINE OPERATOR MEDICAL RECORDS LIBRARY PROFESSOR Unavailable [phone] Brea Quinn TAPPING MACHINE OPERATOR MEDICAL RECORDS LIBRARY PROFESSOR Unavailable [phone] Jose Francisco Johnson MD Unavailable Alfonso Renteria MD Unavailable + [phone] Esha Grimm PA-C Primary Care Provider Radha Lomeli TAPPING MACHINE OPERATOR MEDICAL RECORDS LIBRARY PROFESSOR Unavailable [phone] Jelena David OD Unavailable Esha GrimmC Unavailable [phone] Valery VeronicaC Unavailable [phone] Rey Tay MD Unavailable Rocky Zepeda DO Unavailable Philip Dumont MD Unavailable [phone] Meredith CarreraC Unavailable [phone] Neil Kent MD Unavailable Juan Pablo Emmanuel MD Unavailable [phone] Encounter Details Date Type Department Care Team [...] do you attend [facility] or restorationist services? 1 to 4 times [...] Answer Date Recorded PHQ-2 Score 0 10/25/2023 [facility] - [...] exercise at this level? 30 min 03/10/2023 [place] Depression Scale Answer Date Recorded [place] Depression Score 5 01/14/2021 Last EPDS Self [...] Description 03/26/2024 11:20 AM CDT Office Visit [facility] Spine and Neurosurgery [address]47 [facility] 100 [place] [address] Ebony Cid, TAPPING MACHINE OPERATOR [facility] 500 [place], [place] [address]105 03/27/2024 11:00 AM CDT Office Visit [facility] [address] [facility] [address] [place] [phone] Jelena David, [address] [facility] [place] [address] 04/19/2024 2:45 PM CDT Office Visit [facility] 830 [place] [address] Audrey Waite PA-C 420 [facility] [address]385, [facility] 603 [place], [place] 345745 05/08/2024 1:30 PM CDT Office Visit [facility] [address] [place] [phone] Lauren Claudio PA-C [address] [place] [address] [phone] Esha Grimm PA-C [address] [place] [address] 06/21/2024 2:00 PM MOLD CHIPPER Office Visit [facility] Neu[facility] 6545 [facility], [address] [place] [address] [place] [address] [place] [address] Johnny Penn MD 3648 [place], [place] [phone] Scheduled Procedures Name Priority Associated Diagnoses Date/Ti va ESOPHAGOGASTRODUODENOSCOPY Eosinophilic esophagitis Esophageal dysphagia documented as of this encounter Visit Diagnoses Not on filedocumented in this encounter Additional Health Concerns Assessment Noted Time PHQ-9 Depression Total Score: 4 06/20/20 23 8:40 AM MOLD CHIPPER documented as of this encounter Care Teams Sander And Buffer Relationship Specialty Start Date End Date Esha Grimm PA-C [address] [place] [address] PCP - General Family Medicine 05/04/23 Diana Desir, [facility] 3033 [place] [address] Pharmacist Pharmacist 04/17/21 Rain Galaviz PA-C [address] [place] [address] [address] [place] [facility] [place] [phone] Physician Cushion Padder Dermatology 04/28/21 Tavia Wyatt MD [address] [place] [address] [address] [place] [address] Dermatology 07/14/21 Erica Farrell APRN MEDICAL RECORDS LIBRARY PROFESSOR [address] [place], [place] 418[address] Nurse Practitioner Cardiovascular Disease 09/09/21 Rich Barrett MD 516 [facility] 9A [place], [place] 921875 Physician Ophthalmology 01/21/22 Neil Kent MD 500 [place], [place] 972815 Dermatology 02/24/22 [facility] 3033 [place], [place] 981916 Assigned MTM Pharmacist 04/07/22 Livan Sharif MD [address] [address] Cardiovascular Disease 05/14/22 Catherine Cm MD [address] [address] Cardiovascular Disease 07/21/22 Valery Veronica, PA-C [address] [place] [address] 210425 Physician Cushion Padder Dermatology 07/21/22 Brea Quinn APRN MEDICAL RECORDS LIBRARY PROFESSOR 500 [place], [place] [phone] Nurse Practitioner Dermatology 09/21/22 Brea Quinn APRN MEDICAL RECORDS LIBRARY PROFESSOR 6401 [place] [address] Assigned Surgical Provider 10/09/22 [place] [address] [place] [facility] 300 [place] [address] Assigned Musculoskeletal Provider 10/09/22 Alfonso Renteria MD 5775 [facility] 200 [place], [place] 956946 Assigned Neuroscience Provider 04/02/23 Radha Lomeli APRN MEDICAL RECORDS LIBRARY PROFESSOR [address] 9601100 [place] [address] Assigned Heart and Vascular Provider 05/28/23 Jelena David OD [address] [facility] [place] [address] Ophthalmology 06/15/23 Esha Grimm PA-C [address] [place] [address]225783 Assigned PCP 07/16/23 Valery Veronica PA-C [address] [place] [address] 344315 Physician Cushion Padder Dermatology 09/19/23 Rey Tay MD 9 [place], [place] 844515 Gastroenterology 09/20/23 Rocky Zepeda DO [address] [place] [address] 265245 Physician Gastroenterology 09/20/23 Philip Dumont MD [address] [place] [address] 660825 Physician Ophthalmology 09/22/23 Meredith Carrera PA-C [address] [place] [address] 551355 Assigned Gastroenterology Provider 11/01/23 Neil Kent MD [address] 155350 Dermatology 11/02/23 [place] [address] [place] [facility] [place], [place] 643037 Neurological Surgery 12/26/23 documented as of this encounter
--- OUTSIDE RECORDS SUMMARY | 2024-03-12 19:32 | XMS_ITS | Encounter Summary ---
Author Organization [place] Address [address] [place] [address] Care Team Providers Care Industrial Machine Assembler Name Role Phone Thang Diana [place] [facility] Unavailable Rain Galaviz PA-C Unavailable Tavia Wyatt MD Unavailable Unavailable Erica Farrell APRN HOSPITAL ADMITTING CLERK Unavailable Rich Barrett MD Unavailable Neil Kent MD Unavailable Diana Desir Stanislav [facility] Unavailable [phone] Livan Sharif MD Unavailable Catherine Cm MD Unavailable + Valery Veronica PA-C Unavailable [phone] Brea Qunin [facility] ADMITTING CL[facility] Unavailable Brea Quinn [facility] ADMITTING CL[facility] Unavailable [phone] Jose Francisco Johnsno MD Unavailable Alfonso Renteria MD Unavailable + [phone] Esha Grimm PA-C Primary Care Provider [phone] Radha Lomeli [facility] ADMITTING CL[facility] Unavailable [phone] Jelena David OD Unavailable Esha Grimm Adam PA-C Unavailable [phone] Valery VeronicaC Unavailable Rey Tay MD Unavailable Rocky Zepeda Unavailable Philip Dumont MD Unavailable Meredith Carrera-C Unavailable [phone] Neil Kent MD Unavailable Juan Pablo Emmanuel MD Unavailable [phone] Reason for Visit * Reason Onset Date Comments Appointment 01/09/2024 Encounter Details Date Type Department Care Team (Late st Contact Info) Description 01/09/2024 Telephone [facility] Neurology [address], [address] [place] [address] [place] [address] [place] [address] Appointment Social History Tobacco Use [...] Score 0 10/25/2023 [facility] of Occupat ional Health [...] exercise at this level? 30 min 03/10/2023 Carmichael Depression Scale Answer Date Recorded Carmichael Depression Score 5 01/14/2021 Last EPDS Self [...] Visit [facility] Spine and Neurosurgery [address] [place] [address] [address] [place] [address] Ebony Cid APRN HOSPITAL ADMITTING CLERK [address] [place] [address] 03/27/2024 11:00 AM CDT Office Visit [place] [address] [facility] [address] [place] [address] Jelena David, [place] 3305 [facility] [place] [address] 04/19/2024 2:45 PM CDT Office Visit [facility] 830 [place] [phone] Audrey Waite PA-C 420 [facility] [address]385, [facility] 603 [place], [place] [address]135 05/08/2024 1:30 PM CDT Office Visit [facility] [address] [place] [phone] Lauren Claudio PA-C [address] [place], [place] [phone] Esha Grimm PA-C [address] [place] [address] 06/21/2024 2:00 PM DIGITAL MARKETING ASSOCIATE Office Visit [facility] Neurology Clinics - [address], [address] [place] [phone] [place] [address] [place] 441867 Johnny Penn MD [address]45 [place], [place] [phone] Scheduled Procedures Name Priority Associated Diagnoses Date/Ti tx ESOPHAGOGASTRODUODENOSCOPY Eosinophilic esophagitis Esophageal dysphagia documented as of this encounter Visit Diagnoses Not on filedocumented in this encounter Additional Health Concerns Assessment Noted Time PHQ-9 Depression Total Score: 4 06/20/20 23 8:40 AM DIGITAL MARKETING ASSOCIATE documented as of this encounter Care Teams Industrial Machine Assembler Relationship Specialty Start Date End Date Esha Grimm PA-C [address] [place] [address] PCP - General Family Medicine 05/04/23 Diana Desir, [facility] [address] [place] [address] Pharmacist Pharmacist 04/17/21 Rain Galaviz PA-C [address] [place] [address] [address] [place] [address] Physician Historic Preservationist Dermatology 04/28/21 Tavia Wyatt MD [address] [place] [address] [place] [address] Dermatology 07/14/21 Erica Farrell APRN HOSPITAL ADMITTING CLERK 6405 [facility] [address] [place] [address] Nurse Practitioner Cardiovascular Disease 09/09/21 Rich Barrett MD 516 [facility] 9A [place], [place] 291495 Physician Ophthalmology 01/21/22 Neil Kent MD [address] [place], [place] 255225 Dermatology 02/24/22 Diana Desir, [facility] [address] [place] [address] Assigned MTM Pharmacist 04/07/22 Livan Sharif MD [address], [facility] [address] [place] [address] Cardiovascular Disease 05/14/22 Catherine Cm MD [address] [facility] [address] [place] [address] Cardiovascular Disease 07/21/22 Valery Veronica, PAUcheC [address] [place] [address] 414675 Physician Historic Preservationist Dermatology 07/21/22 Brea Quinn APRN HOSPITAL ADMITTING CLERK 500 [place], [place] 712265 Nurse Practitioner Dermatology 09/21/22 Brea Quinn APRN HOSPITAL ADMITTING CLERK 6401 [facility] [place], [place] 591652 Assigned Surgical Provider 10/09/22 [place] [address] [facility] 300 [place] [address] Assigned Musculoskeletal Provider 10/09/22 Alfonso Renteria MD 5775 [facility] 200 [place], [place] 892206 Assigned Neuroscience Provider 04/02/23 Radha Lomeli APRN HOSPITAL ADMITTING CLERK [address] [place] [address] Assigned Heart and Vascular Provider 05/28/23 Jelena David OD [address] [place] [address] MD Ophthalmology 06/15/23 Esha Grimm PA-C [address] [place] [address] Assigned PCP 07/16/23 Valery Veronica PA-C [address] [place] [address] Physician Historic Preservationist Dermatology 09/19/23 Rey Tay MD [address] [place] [address] Gastroenterology 09/20/23 Rocky Zepeda DO [address] [place] [address] Physician Gastroenterology 09/20/23 Philip Dumont MD [address] [place] [address] Physician Ophthalmology 09/22/23 Meredith Carrera PA-C [address] [place] [address] Assigned Gastroenterology Provider 11/01/23 Neil Kent MD [address] 427540 Dermatology 11/02/23 [place] [address] [place] [address] Neurological Surgery 12/26/23 documented as of this encounter
--- OUTSIDE RECORDS SUMMARY | 2024-03-12 19:32 | XMS_ITS | Encounter Summary ---
Author Organization [place] Address [address] [place] [address] Care Team Providers Care Forklift Driver Name Role Phone Thang Diana [place] [facility] Unavailable Rain Galaviz PA-C Unavailable [phone] Tavia Wyatt MD Unavailable Unavailable Erica Farrell APRN COFFEE ATTENDANT Unavailable Rich Barrett MD Unavailable Neil Kent MD Unavailable Diana Desir Stanislav [facility] Unavailable [phone] Livan Sharif MD Unavailable Catherine Cm MD Unavailable + Valery Veronica PA-C Unavailable [phone] Brea Quinn CAR SEAT COVERER COFFEE ATTENDANT Unavailable [phone] Brea Quinn CAR SEAT COVERER COFFEE ATTENDANT Unavailable Jose Francisco Johnson MD Unavailable Alfonso Renteria MD Unavailable + [phone] Esha Grimm PA-C Primary Care Provider Radha Lomeli CAR SEAT COVERER COFFEE ATTENDANT Unavailable [phone] Jelena David OD Unavailable Esha GrimmC Unavailable [phone] Valery VeronicaC Unavailable [phone] Rey Tay MD Unavailable Rocky Zepeda DO Unavailable Philip Dumont MD Unavailable [phone] Meredith CarreraC Unavailable [phone] Neil Kent MD Unavailable Juan Pablo Emmanuel MD Unavailable [phone] Encounter Details Date Type Department Care Team [...] week 03/10/2023 How often do you attend [facility] or hinduism services? 1 to 4 times [...] Answer Date Recorded PHQ-2 Score 0 10/25/2023 [facility] of Occupat ional [facility] - Occupational Stress Questionnaire Answer Date [...] exercise at this level? 30 min 03/10/2023 Paradox Depression Scale Answer Date Recorded Paradox Depression Score 5 01/14/2021 Last EPDS Self [...] Description 03/26/2024 11:20 AM CDT Office Visit [facility] Spine and Neurosurgery 1747 [facility] 100 [place] [address] Ebony Cid, CAR SEAT COVERER [facility] 500 [place], [place] 919135 03/27/2024 11:00 AM CDT Office [facility] 3305 [facility] [address] [place] [phone] Jelena David, 3305 [facility] [place] [address] 04/19/2024 2:45 PM CDT Office Visit [facility] 830 [place] [address] Audrey Waite PA-C 420 [facility] [address]385, [facility] 603 [place], [place] 302755 05/08/2024 1:30 PM CDT Office Visit [facility] [address] [place] [phone] Lauren Claudio PA-C [address] [place] [address] [id number] Esha Grimm PA-C [address] [place] [address] 06/21/2024 2:00 PM INSPECTOR AIDE Office Visit [facility] Neurology [facility] 6545 [facility], [address] [place] [address] [place] [address] [place] [address] [place] [address] [place], [place] [phone] Scheduled Procedures Name Priority Associated Diagnoses Date/Ti pa ESOPHAGOGASTRODUODENOSCOPY Eosinophilic esophagitis Esophageal dysphagia documented as of this encounter Visit Diagnoses Not on filedocumented in this encounter Additional Health Concerns Assessment Noted Time PHQ-9 Depression Total Score: 4 06/20/20 23 8:40 AM INSPECTOR AIDE documented as of this encounter Care Teams Forklift Driver Relationship Specialty Start Date End Date Esha Grimm PA-C [address] [place] [address] PCP - General Family Medicine 05/04/23 Diana Desir, [facility] 3033 [place] [address] Pharmacist Pharmacist 04/17/21 Rain Galaviz PA-C [address] [place] [address] [address] [facility] [place] [address] Physician Baby Attendant Dermatology 04/28/21 Tavia Wyatt MD [address] [place] [address] [address] [place] [address] Dermatology 07/14/21 Erica Farrell APRN COFFEE ATTENDANT [address] [place], [place] 473645 Nurse Practitioner Cardiovascular Disease 09/09/21 Rich Barrett MD 516 [facility] 9A [place], [place] 0[address] Physician Ophthalmology 01/21/22 Neil Kent MD 500 [place], [place] 000855 Dermatology 02/24/22 [facility] 3033 [place], [place] 201426 Assigned MTM Pharmacist 04/07/22 Livan Sharif MD [address] [address] Cardiovascular Disease 05/14/22 Catherine Cm MD [address] [address] Cardiovascular Disease 07/21/22 Valery Veronica, PA-C [address] [place] [address] 425385 Physician Baby Attendant Dermatology 07/21/22 Brea Quinn APRN COFFEE ATTENDANT 500 [place], [place] [phone] Nurse Practitioner Dermatology 09/21/22 Brea Quinn APRN COFFEE ATTENDANT 6401 [place] [address] Assigned Surgical Provider 10/09/22 [place] [address] [facility] 300 [place] [address] Assigned Musculoskeletal Provider 10/09/22 Alfonso Renteria MD 5775 [facility] 200 [place], [place] 233126 Assigned Neuroscience Provider 04/02/23 Radha Lomeli APRN COFFEE ATTENDANT [address] [place] 1382800 [place] [address] Assigned Heart and Vascular Provider 05/28/23 Jelena David OD 3305 [facility] [place] [address] Ophthalmology 06/15/23 Esha Grimm PA-C [address] [place] [address] Assigned PCP 07/16/23 Valery Veronica PA-C [address] [place] [address] 277685 Physician Baby Attendant Dermatology 09/19/23 Rey Tay MD 9 [place], [place] 884475 Gastroenterology 09/20/23 Rocky Zepeda DO [address] [place] [address] 368115 Physician Gastroenterology 09/20/23 Philip Dumont MD [address] [place] [address] 882515 Physician Ophthalmology 09/22/23 Meredith Carrera PA-C [address] [place] [address] 723905 Assigned Gastroenterology Provider 11/01/23 Neil Kent MD [address] 310[address] Dermatology 11/02/23 [place] [address] [facility] [place], [place] 774937 Neurological Surgery 12/26/23 documented as of this encounter
--- OUTSIDE RECORDS SUMMARY | 2024-03-12 19:32 | XMS_ITS | Encounter Summary ---
Author Organization [place] Address [address] [place] [address] Care Team Providers Care Scrap Preparer Name Role Phone Thang Diana [place] [facility] Unavailable Rain Galaviz PA-C Unavailable Tavia Wyatt MD Unavailable Unavailable Erica Farrell APRN GLOBAL SUPPLY CHAIN VICE PRESIDENT Unavailable Rich Barrett MD Unavailable Neil Kent MD Unavailable Diana Desir Stanislav [facility] Unavailable [phone] Livan Sharif MD Unavailable Catherine Cm MD Unavailable + Valery Veronica PA-C Unavailable [phone] Brea Quinn ANALYTICAL LAB ANALYST GLOBAL SUPPLY CHAIN VICE PRESIDENT Unavailable Brea Quinn ANALYTICAL LAB ANALYST GLOBAL SUPPLY CHAIN VICE PRESIDENT Unavailable [phone] Jose Francisco Johnson MD Unavailable Alfonso Renteria MD Unavailable + [phone] Esha Grimm PA-C Primary Care Provider Radha Lomeli ANALYTICAL LAB ANALYST GLOBAL SUPPLY CHAIN VICE PRESIDENT Unavailable [phone] Jelena David OD Unavailable Jesus Grimmyllincoln Medina PA-C Unavailable [phone] Valery Veronica-C Unavailable [phone] Rey Tay MD Unavailable Duane Rocky DO Unavailable Philip Dumont MD Unavailable Meredith Carrera PA-C Unavailable [phone] Neil Kent MD Unavailable Juan Pablo Emmanuel MD Unavailable Reason for Visit * Reason Comments Shortness of Breath Encounter Details Date Type Department Care Team (Late st Contact Info) Description 01/11/2024 9:53 AM CDT - 01/11/2024 12:38 PM CDT Emergency [facility] Emergency Dept [address] [place] [phone] Jeffrey Whalen MD [facility] [address] [place] [address] Dyspnea, unspecified type Discharge Disposition: [...] often do you attend [facility] or denominational services? 1 to 4 times [...] Answer Date Recorded PHQ-2 Score 0 10/25/2023 [facility] [place] of Occupat ional Health - Occupational Stress [...] exercise at this level? 30 min 03/10/2023 Chaumont Depression Scale Answer Date Recorded Chaumont Depression Score 5 01/14/2021 Last EPDS Self [...] Care Everywhere. * SOB (Shortness of Breath) (Venezuelan) documented in this encounter Medications at Time [...] 0958 Normal sinus rhythm Rate 60 bpm. ND interval 146 ms. QRS duration 84 ms. [...] has eloped. Medical Decision Making / Diagnosis [facility] Diagnoses: None MIPS None MDM Patient presents [...] Visit [facility] Spine and Neurosurgery 1747 [facility] [address] [place] [phone] Ebony Cid, [facility] 500 [place] [address] 03/27/2024 11:00 AM CDT [facility] 3305 [facility] [address] [place] [phone] Jelena David, OD 3305 [facility] [place] [address] 04/19/2024 2:45 PM CDT Office Visit [facility] 830 [place] [phone] Audrey Waite PA-C [address] [facility] B385, [facility] 603 [place], [place] 27[address]25 05/08/2024 1:30 PM CDT Office Visit [facility] [address] [place] [phone] Lauren Claudio PA-C [address] [place] [address] Esha Grimm PA-C [address] [place] [address] 06/21/2024 2:00 PM ADVISER SALES Office Visit [facility] Neurology Clinics - [address], [address] [place] [phone] [place] [address] [place], [place] [phone] Johnny Penn MD 6545 [place] [address] Scheduled Procedures Name Priority Associated [...] testing is available if warranted by ordering [id number], HCG Quantitative . Blood STRUCTURE OF RIGHT HAND / Unknown Venipuncture / Unknown 01/11/2024 11:10 AM CDT 01/11/2024 11:15 AM CDT Jeffrey Whalen MD LAB - BLOOD DONYA HERRERA [facility] Organization Address City/State/ZIP Co de Phone Number LABORATORY [facility] Acute Care Lab [address] [facility] Lab (1st floor, no room number) [place] [address], [facility] * (ABNORMAL) CBC with platelets and [...] - BLOOD DONYA HERRERA Performing Organization Address [facility] Co de Phone Number [facility] Acute Care Lab [address] Lab (1st floor, no room number) [place] [address], [facility] * Troponin T, High Sensitivity (01/11/2024 10:30 AM CDT) Pathologist [facility] Troponin T, High Sensitivity <6 <=14 ng/L [...] - BLOOD DONYA HERRERA Performing Organization Address [facility]/ZIP Co de Phone Number [facility] Acute Care Lab [address] Lab (1st floor, no room number) [place] [address], [facility] * (ABNORMAL) Basic metabolic panel (01/11/2024 10:30 AM CDT) Sodium 137 135 - 145 mmol/L 01/11/2024 11:07 AM CDT LABORATORY Potassium 4.2 3.4 - 5.3 mmol/L 01/11/2024 11:07 AM CDT LABORATORY Chloride 103 98 - 107 mmol/L 01/11/2024 11:07 AM CDT [facility] LABORATORY Carbon Dioxide (CO2) 21(L) 22 - 29 mmol/L 01/11/2024 11:07 AM CDT [facility] Anion Gap 13 7 - 15 mmol/L 01/11/2024 11:07 AM CDT [facility] Urea Nitrogen 14.8 6.0 - 20.0 mg/dL 01/11/2024 11:07 AM CDT [facility] Creatinine 0.68 0.51 - 0.95 mg/dL [...] Whalen MD LAB - BLOOD DONYA HERRERA [facility] Organization Address City/State/ZIP Co de Phone Number LABORATORY [facility] Acute Care Lab [address] [facility] Lab (1st floor, no room number) [place] [address], [facility] * D dimer quantitative (01/11/2024 10:30 AM [...] Whalen MD LAB - BLOOD DONYA HERRERA [facility] Acute Care Lab [address] [facility] Lab (1st floor, no room number) [place] [address], [facility] * EKG 12 lead (01/11/2024 9:55 AM CDT) Systolic Blood Pressure mmHg RADIOLOGY RESULTS Diastolic Blood Pressure mmHg RADIOLOGY RESULTS Ventricular Rate 60 BPM RAD IOLOGY RESULTS Atrial Rate 60 BPM RADIOLOG Y RESULTS ND Interval 146 ms RADIOLOG Y RESULTS QRS Duration 84 ms RADIOLO GY RESULTS QT 382 ms RADIOLOGY RESULTS QTc 382 ms RADIOLOGY RESULTS P Narber[place] 61 degrees RADIOLOGY RESULTS R AXIS 70 degrees RADIOLOGY RESULTS T [place]ber[place] 67 degrees RADIOLOGY RESULTS Interpretation ECG Sinus rhythm Normal ECG When compared with ECG of 26-DEC-2023 09:56, No significant change was found Unconfirmed report - interpretation of this ECG is computer generated - see medical record for final interpretation Confirmed by - EMERGENCY ROOM, PHYSICIAN ([id number]), newspaper copy editor Saleem Gomez ([id number]) on 01/11/2024 12:31:03 PM RADIOLOGY RESULTS 01/11/2024 9:55 AM CDT 01/11/2024 12:31 PM CDT Jeffrey Whalen MD ECG ORDERABLES RADIOLOGY RESULTS documented in this encounter Visit Diagnoses Diagnosis Dyspnea, unspecified type documented in this encounter Additional Health Concerns Assessment Noted Time PHQ-9 Depression Total Score: 4 06/20/20 23 8:40 AM ADVISER SALES documented as of this encounter Care Teams Scrap Preparer Relationship Specialty Start Date End Date Esha Grimm PA-C [address] [place] [address] PCP - General Family Medicine 05/04/23 Diana Desir, [facility] 3033 [place] [address] Pharmacist Pharmacist 04/17/21 Rain Galaviz PA-C [address] [place] [address] [address] [place] [address] Physician Lawyer Dermatology 04/28/21 Tavia Wyatt MD [address] [place] [address] DR [facility] [facility] [place] [address] Dermatology 07/14/21 Erica Farrell APRN GLOBAL SUPPLY CHAIN VICE PRESIDENT [address] [place] [address] Nurse Practitioner Cardiovascular Disease 09/09/21 Rich Barrett MD [address] [place] [address] [address] [place] [address] Physician Ophthalmology 01/21/22 Neil Kent MD 500 [place], [place] 6[address]65 Dermatology 02/24/22 Diana Desir, [facility] [address] [place] [address] Assigned MTM Pharmacist 04/07/22 Livan Sharif MD [address] [place] 836905 Cardiovascular Disease 05/14/22 Catherine Cm MD [address] [place] [address] Cardiovascular Disease 07/21/22 Valery Veronica PA-C 909 [place], [place] 985725 Physician Lawyer Dermatology 07/21/22 Brea Quinn APRN GLOBAL SUPPLY CHAIN VICE PRESIDENT 500 [place], [place] 418245 Nurse Practitioner Dermatology 09/21/22 Brea Quinn APRN GLOBAL SUPPLY CHAIN VICE PRESIDENT 6401 [place], [place] 710252 Assigned Surgical Provider 10/09/22 [place] [address] [address] [facility] 300 [place] [address] Assigned Musculoskeletal Provider 10/09/22 Alfonso Renteria MD [address] [facility] 200 [place], [place] [phone] Assigned Neuroscience Provider 04/02/23 Radha Lomeli APRN GLOBAL SUPPLY CHAIN VICE PRESIDENT 6405 [facility] [address] [place] 7[address]805 Assigned Heart and Vascular Provider 05/28/23 Jelena David OD 3305 [facility] [place] [address] Ophthalmology 06/15/23 Esha Grimm PA-C [address] [place] [address] Assigned PCP 07/16/23 Valery Veronica PA-C [address] [place] [address] Physician Lawyer Dermatology 09/19/23 Rey Tay MD [address] [place] [address] Gastroenterology 09/20/23 Rocky Zepeda DO [address] [place] [address] Physician Gastroenterology 09/20/23 Philip Dumont MD [address] [place] [address] Physician Ophthalmology 09/22/23 Meredith Carrera PA-C [address] [place] [address] Assigned Gastroenterology Provider 11/01/23 Neil Kent MD [address] [address] Dermatology 11/02/23 [place] [address] [address] Neurological Surgery 12/26/23 documented as of this encounter
--- OUTSIDE RECORDS SUMMARY | 2024-03-12 19:32 | XMS_ITS | Encounter Summary ---
Author Organization [place] Address [address] [place] [address] Care Team Providers Care Braille And Talking Books Clerk Name Role Phone Thang Diana Mayers [facility] Unavailable [phone] Rain Galaviz PA-C Unavailable Tavia Wyatt MD Unavailable Unavailable Erica Farrell APRN PHYSICIAN UNDERWRITER Unavailable Rich Barrett MD Unavailable Neil Kent MD Unavailable Diana Desir Stanislav [facility] Unavailable [phone] Livan Sharif MD Unavailable Catherine Cm MD Unavailable + Valery Veronica PA-C Unavailable [phone] Brea Quinn CONCRETE BLOCK PLANT SUPERVISOR PHYSICIAN UNDERWRITER Unavailable Brea Quinn CONCRETE BLOCK PLANT SUPERVISOR PHYSICIAN UNDERWRITER Unavailable Jose Francisco Johnson MD Unavailable Alfonso Renteria MD Unavailable + [phone] Esha Grimm PA-C Primary Care Provider [phone] Radha Lomeli CONCRETE BLOCK PLANT SUPERVISOR PHYSICIAN UNDERWRITER Unavailable [phone] Jelena David OD Unavailable Esha Grimm Adam DOWC Unavailable [phone] JeremíasValeryC Unavailable Rey Tay MD Unavailable Rocky Zepeda Unavailable Philip Dumont MD Unavailable [phone] Meredith CarreraC Unavailable Neil Kent MD Unavailable Juan Pablo Emmanuel MD Unavailable [phone] Reason for Referral * Consultation (Priority: 1-2 Weeks) - Pending Review Specialty Diagnoses / Procedures Referred By Qian mayers Referred To Contact Diagnoses Numbness and tingling of upper extremity Ebony Cid APRN PHYSICIAN UNDERWRITER [address] [place] [address] Referral ID Status Reason Start Date Expiration Date V isits Requested Visits Authorized [id number] Pending Review 01/09/2024 01/08/2025 1 1 Question Answer Reason for Referral: General Neurology Scheduling Instructions: [employer] will call you to coordinate your care as prescribed by your provider. If you don't hear from a exhibit display representative within 2 business days, please call . Additional Information: numbness, weakness episodes of the upper extremities, and spreading numbness from the neck into the torso Comments Please be aware that coverage of these services is subject to the terms and limitations of your health insurance plan. Call member services at your health plan with any benefit or coverage questions. [employer] will call you to coordinate your care as prescribed by your provider. If you don't hear from a exhibit display representative within 2 business days, please call . Reason for Visit * Reason Onset Date Comments Results 01/09/2024 Cervical and bra in MRIs Encounter Details Date Type Department Care Team (Late st Contact Info) Description 01/09/2024 Telephone [facility] Spine and Neurosurgery [address] [facility] [address] [place] [address] Ebony Cid, [facility] [address] [place] [address] Results (Cervical and brain MRIs) Social History [...] do you attend [facility] or amish services? 1 to 4 times [...] Answer Date Recorded PHQ-2 Score 0 10/25/2023 [facility] [place] [facility] Occupat ional [facility] - Occupational Stress [...] exercise at this level? 30 min 03/10/2023 [place] Depression Scale Answer Date Recorded [place] Depression Score 5 01/14/2021 Last EPDS [...] Description 03/26/2024 11:20 AM CDT Office Visit [facility] Spine and Neurosurgery 1747 [facility] 100 [place] [address] Ebony Cid APRN PHYSICIAN UNDERWRITER [address] [place], [place] [address]345 03/27/2024 11:00 AM CDT Office [facility] [address] [facility] [address] [place] [phone] Jelena David, [address] [place] [address] 04/19/2024 2:45 PM CDT Office Visit [facility] 830 [place] [phone] Audrey Waite PA-C 420 [facility] B385, [facility] 603 [place], [place] [address] 05/08/2024 1:30 PM CDT Office Visit [facility] [address] [place] [phone] Lauren Claudio PA-C [address] [place] [address] Esha Grimm PA-C [address] [place] [phone] 06/21/2024 2:00 PM HVAC FIELD SERVICE TECHNICIAN Office Visit [facility] [place] [address] [facility], [address] [place] [address] [place] [address] [place] [address] Johnny Penn MD 6001 [place] [address] Scheduled Procedures Name Priority Associated Diagnoses Date/Ti me ESOPHAGOGASTRODUODENOSCOPY Eosinophilic esophagitis Esophageal dysphagia Scheduled Referrals Name Type Priority Associated Diagnoses Orde r Schedule Adult Neurology Powder Coater Referral Referral Priority: 1-2 Weeks Numbness and tingling of upper extremity Expected: 01/09/2024 (Approximate), Expires: 01/08/2025 documented as of this encounter Visit Diagnoses Diagnosis Numbness and tingling of upper extremity- Primary documented in this encounter Additional Health Concerns Assessment Noted Time PHQ-9 Depression Total Score: 4 06/20/20 23 8:40 AM HVAC FIELD SERVICE TECHNICIAN documented as of this encounter Care Teams Braille And Talking Books Clerk Relationship Specialty Start Date End Date Esha Grimm PA-C [address] [place] [address] PCP - General Family Medicine 05/04/23 Diana Desir, [facility] [address] [facility] [place] [address] Pharmacist Pharmacist 04/17/21 Rain Galaviz PA-C [address] [place] [address] [address] [place] [address] Physician Gear Shaper Dermatology 04/28/21 Tavia Wyatt MD [address] [place] [address] DR [address] [facility] [facility] [place] [address] Dermatology 07/14/21 Erica Farrell APRN PHYSICIAN UNDERWRITER [address] [place] [address] Nurse Practitioner Cardiovascular Disease 09/09/21 Rich Barrett MD [address] [address] Physician Ophthalmology 01/21/22 Neil Kent MD [address] [place] [address] 222615 Dermatology 02/24/22 Diana Desir, [facility] 3033 [place], [place] 916[address] Assigned [place] Pharmacist 04/07/22 Livan Sharif MD [address] [place] [address] Cardiovascular Disease 05/14/22 Catherine Cm MD [address] [place] [address] Cardiovascular Disease 07/21/22 Valery Veronica, PAUcheC [address] [place] [address] 915605 Physician Gear Shaper Dermatology 07/21/22 Brea Quinn APRN PHYSICIAN UNDERWRITER 500 [place] [address] Nurse Practitioner Dermatology 09/21/22 Brea Quinn APRN PHYSICIAN UNDERWRITER 6401 [place] [address] Assigned Surgical Provider 10/09/22 [place] [address] [address] [facility] 300 [place], [place] 144697 Assigned Musculoskeletal Provider 10/09/22 Alfonso Renteria MD 5775 [facility] 200 [place], [place] 767076 Assigned Neuroscience Provider 04/02/23 Radha Lomeli, ARLENE PHYSICIAN UNDERWRITER [address] [facility] [address] [place] [address] Assigned Heart and Vascular Provider 05/28/23 Jelena David OD [address] [place] [address] Ophthalmology 06/15/23 Esha Grimm PA-C [address] [place] [phone] Assigned PCP 07/16/23 Valery Veronica PA-C 909 [place] [address] Physician Gear Shaper Dermatology 09/19/23 Rey Tay MD [address] [place] [address] Gastroenterology 09/20/23 Rocky Zepeda DO [address] [place] [address] Physician Gastroenterology 09/20/23 Philip Dumont MD [address] [place] [address] Physician Ophthalmology 09/22/23 Meredith Carrera PA-C [address] [place] [address] Assigned Gastroenterology Provider 11/01/23 Neil Kent MD [address] [place] [address] Dermatology 11/02/23 [place] [address] [place] [address] Neurological Surgery 12/26/23 documented as of this encounter
--- OUTSIDE RECORDS SUMMARY | 2024-03-12 19:32 | XMS_ITS | Encounter Summary ---
Author Organization [place] Address [address] [place] [address] Care Team Providers Care Trim Crew Supervisor Name Role Phone Thang Diana [place] [facility] Unavailable [phone] Rain Galaviz PA-C Unavailable Tavia Wyatt MD Unavailable Unavailable Erica Farrell APRN FOLDER AND NOTCHER Unavailable Rich Barrett MD Unavailable Neil Kent MD Unavailable Diana Desir Stanislav [facility] Unavailable [phone] Livan Sharif MD Unavailable Catherine Cm MD Unavailable + Valery Veronica PA-C Unavailable [phone] Brea Quinn SPORTS MEDICINE COORDINATOR FOLDER AND NOTCHER Unavailable [phone] Brea Quinn SPORTS MEDICINE COORDINATOR FOLDER AND NOTCHER Unavailable Jose Francisco Johnson MD Unavailable Alfonso Renteria MD Unavailable + [phone] Esha Grimm PA-C Primary Care Provider Radha Lomeli SPORTS MEDICINE COORDINATOR FOLDER AND NOTCHER Unavailable [phone] Jelena David OD Unavailable Esha GrimmC Unavailable [phone] Valery VeronicaC Unavailable [phone] Rey Tay MD Unavailable Duane Rockyanne STEVENS Unavailable Philip Dumont MD Unavailable [phone] Meredith CarreraC Unavailable [phone] Neil Kent MD Unavailable Juan Pablo Emmanuel MD Unavailable [phone] Encounter Details Date Type Department Care Team [...] do you attend [facility] or moravian services? 1 to 4 [...] Answer Date Recorded PHQ-2 Score 0 10/25/2023 [facility] - Occupational Stress Questionnaire Answer Date [...] at this level? 30 min 03/10/2023 [place] Depression Scale Answer Date Recorded [place] Depression Score 5 01/14/2021 Last EPDS [...] Description 03/26/2024 11:20 AM CDT Office Visit [facility] Spine and Neurosurgery 1747 [facility] 100 [place] [address] Ebony Cid, SPORTS MEDICINE COORDINATOR [facility] 500 [place], [place] [address]35 03/27/2024 11:00 AM CDT Office Visit [facility] 3[address] [facility] [address] [place] [phone] Jelena David, 3[address] [facility] [place] [address] 04/19/2024 2:45 PM CDT Office Visit [facility] 830 [place] [address] Audrey Waite PA-C 420 [facility] [address]385, [facility] 603 [place], [place] [address]195 05/08/2024 1:30 PM CDT Office Visit [facility] [address] [place] [phone] Lauren Claudio PA-C [address] [place] [address] [phone] Esha Grimm PA-C [address] [place] [address] 06/21/2024 2:00 PM CARE TRANSPORT NURSE Office Visit [facility] Neurology [facility] [address] [facility], [address] [place] [address] [place] [address] [place] [address] Johnny Penn MD 6435 [place], [place] [phone] Scheduled Procedures Name Priority Associated Diagnoses Date/Ti ny ESOPHAGOGASTRODUODENOSCOPY Eosinophilic esophagitis Esophageal dysphagia documented as of this encounter Visit Diagnoses Not on filedocumented in this encounter Additional Health Concerns Assessment Noted Time PHQ-9 Depression Total Score: 4 06/20/20 23 8:40 AM CARE TRANSPORT NURSE documented as of this encounter Care Teams Trim Crew Supervisor Relationship Specialty Start Date End Date Esha Grimm PA-C [address] [place] [address] PCP - General Family Medicine 05/04/23 Diana Desir, [facility] 3033 [place] [address] Pharmacist Pharmacist 04/17/21 Rain Galaviz PA-C [address] [place] [address] [address] [facility] [facility] [place] [address] Physician Collector Of Aquarium Specimens Dermatology 04/28/21 Tavia Wyatt MD [address] [place] [address] [address] [place] [address] Dermatology 07/14/21 Erica Farrell APRN FOLDER AND NOTCHER [address] [place], [place] [address] Nurse Practitioner Cardiovascular Disease 09/09/21 Rich Barrett MD [address] [facility] 9A [place], [place] [address] Physician Ophthalmology 01/21/22 Neil Kent MD 500 [place], [place] 588635 Dermatology 02/24/22 [facility] 3033 [place], [place] 153336 Assigned MTM Pharmacist 04/07/22 Livan Sharif MD [address] [address] Cardiovascular Disease 05/14/22 Catherine Cm MD [address] [address] Cardiovascular Disease 07/21/22 Valery Veronica, PA-C [address] [place] [address] 207255 Physician Collector Of Aquarium Specimens Dermatology 07/21/22 Brea Quinn APRN FOLDER AND NOTCHER 500 [place], [place] 057[address] Nurse Practitioner Dermatology 09/21/22 Brea Quinn APRN FOLDER AND NOTCHER 6401 [place] [address] Assigned Surgical Provider 10/09/22 [place] [address] [address] [facility] 300 [place] [address] Assigned Musculoskeletal Provider 10/09/22 Alfonso Renteria MD [address] [facility] 200 [place], [place] 761876 Assigned Neuroscience Provider 04/02/23 Radha Lomeli APRN FOLDER AND NOTCHER [address] [place] 2990400 [place] [address] Assigned Heart and Vascular Provider 05/28/23 Jelena David OD [address] [facility] [place] [address] Ophthalmology 06/15/23 Esha Grimm PA-C [address] [place] [address] Assigned PCP 07/16/23 Valery Veronica PA-C [address] [place] [address] 846085 Physician Collector Of Aquarium Specimens Dermatology 09/19/23 Rey Tay MD 9 [place], [place] 293565 Gastroenterology 09/20/23 Rocky Zepeda DO [address] [place] [address] 544585 Physician Gastroenterology 09/20/23 Philip Dumont MD [address] [place] [address] 951375 Physician Ophthalmology 09/22/23 Meredith Carrera PA-C [address] [place] [address] 005255 Assigned Gastroenterology Provider 11/01/23 Neil Kent MD [address] 263020 Dermatology 11/02/23 [place] [address] [facility] [place], [place] 851907 Neurological Surgery 12/26/23 documented as of this encounter
--- OUTSIDE RECORDS SUMMARY | 2024-03-12 19:32 | XMS_ITS | Encounter Summary ---
Author Organization [place] Address [address] [place] [address] Care Team Providers Care Trauma Nurse Name Role Phone Thang Diana Mayers [facility] Unavailable Rain Galaviz PA-C Unavailable Tavia Wyatt MD Unavailable Unavailable Erica Farrell APRN ONLINE MARKETING ANALYST Unavailable Rich Barrett MD Unavailable Neil Kent MD Unavailable Diana Desir Stanislav [facility] Unavailable [phone] Livan Sharif MD Unavailable Catherine Cm MD Unavailable + Valery Veronica PA-C Unavailable [phone] Brea Quinn COFFEE ROASTER ONLINE MARKETING ANALYST Unavailable [phone] Brea Quinn COFFEE ROASTER ONLINE MARKETING ANALYST Unavailable Jose Francisco Johnson MD Unavailable Alfonso Renteria MD Unavailable + [phone] Esha Grimm PA-C Primary Care Provider [phone] Radha Lomeli COFFEE ROASTER ONLINE MARKETING ANALYST Unavailable [phone] Jelena David OD Unavailable Esha Grimm Adam PA-C Unavailable [phone] Valery Veronica PA-C Unavailable Rey Tay MD Unavailable ZepedaRocky Unavailable Philip Dumont MD Unavailable [phone] Meredith Carrera PA-C Unavailable [phone] Neil Kent MD Unavailable Juan Pablo Emmanuel MD Unavailable [phone] Reason for Referral * Diagnostic Imaging MRI (Routine) - Closed Specialty Diagnoses / Procedures [facility] Referred To Contact Radiology. Diagnoses Abnormal finding on MRI of brain Chiari malformation type I (H) Procedures MR Brain w/o & w Contrast Ebony Cid APRN ONLINE MARKETING ANALYST 500 [place] [address] Referral ID Status Reason Start Date Expiration Date Visits Re quested Visits Authorized [id number] Closed 01/05/2024 01/04/2025 1 1 * Diagnostic Imaging MRI (Routine) - Closed Specialty Diagnoses / Procedures [facility] Referred To Contact Radiology. Diagnoses Chiari malformation type I (H) Numbness and tingling of upper extremity Procedures MR Cervical Spine w/o & w Contrast Ebony Cid APRN ONLINE MARKETING ANALYST 500 [place] [address] Referral ID Status Reason Start Date Expiration Date Visits Re quested Visits Authorized [id number] Closed 01/05/2024 01/04/2025 1 1 Reason for Visit * Diagnostic Imaging MRI (Routine) - Closed Specialty Diagnoses / Procedures Referred By Qian mayers Referred To Contact Radiology. Diagnoses Abnormal finding on MRI of brain Chiari malformation type I (H) Procedures MR Brain w/o & w Contrast Ebony Cid APRN ONLINE MARKETING ANALYST 500 [place] [address] Referral ID Status Reason Start Date Expiration Date Visits Re quested Visits Authorized [id number] Closed 01/05/2024 01/04/2025 1 1 Encounter Details Date Type Department Care Team (Latest Contact Info) Description 01/06/2024 10:53 AM CDT - 01/06/2024 11:59 PM CDT Hospital Encounter [address] [address] Ebony Cid APRN ONLINE MARKETING ANALYST 500 [place] [address] Chiari malformation type I (H); Numbness and [...] Answer Date Recorded PHQ-2 Score 0 10/25/2023 [facility] - Occupational Stress Questionnaire Answer [...] exercise at this level? 30 min 03/10/2023 [place] Depression Scale Answer Date Recorded [place] Depression Score 5 01/14/2021 Last EPDS Self [...] Description 03/26/2024 11:20 AM CDT Office Visit [facility] Spine and Neurosurgery 1747 [facility] 100 [place] [address] Ebony Cid, ARLENE ONLINE MARKETING ANALYST 500 [place] [address] 03/27/2024 11:00 AM CDT Office Visit [facility] 3305 [facility] [address] [place] [phone] Jelena David, [place] 3305 [facility] [place] [address] 04/19/2024 2:45 PM CDT Office Visit [facility] 830 [place] [phone] Audrey [place]ite PA-C 420 [facility] [address]385, [facility] 603 [place], [place] [address] 05/08/2024 1:30 PM CDT Office Visit [facility] [address] [place] [address] Lauren Claudio PA-C [address] [place] [address] Esha Grimm PA-C [address] [place] [address] 06/21/2024 2:00 PM NUTRIENT MANAGEMENT SPECIALIST Office Visit [facility] Neurology [address], [address] [place] [address] [place] [address] [place] [address] Johnny Penn MD 6545 [place] [address] Scheduled Procedures Name Priority Associated [...] MR BRAIN W/O and W CONTRAST LOCATION: [facility] DATE: 01/06/2024 INDICATION: numbness tingling both arms [...] MR BRAIN W/O and W CONTRAST LOCATION: [facility] DATE: 01/06/2024 INDICATION: numbness tingling both arms and chest, torso. Recheck [id number] and hx Chiari and right parietal abnormality, [...] at the right lateral aspect of the [id number] body. Ebony Cid APRN ONLINE MARKETING ANALYST IMG MRI ORDERABLES * MR Cervical Spine [...] MR BRAIN W/O and W CONTRAST LOCATION: [facility] DATE: 01/06/2024 INDICATION: numbness tingling both arms [...] MR BRAIN W/O and W CONTRAST LOCATION: [facility] DATE: 01/06/2024 INDICATION: numbness tingling both arms and chest, torso. Recheck [id number] and hx Chiari and right parietal abnormality, [...] at the right lateral aspect of the [id number] body. Ebony Cid APRN ONLINE MARKETING ANALYST IMG MRI ORDERABLES documented in this encounter Visit Diagnoses Diagnosis Chiari malformation type I (H) Compression of brain Numbness and tingling of upper extremity Abnormal finding on MRI of brain Nonspecific (abnormal) findings on radiological and other examination of skull and head documented in this encounter Administered Medications Inactive [...] Total Score: 4 06/20/20 23 8:40 AM NUTRIENT MANAGEMENT SPECIALIST documented as of this encounter Care Teams Trauma Nurse Relationship Specialty Start Date End Date Esha Grimm PA-C [address] [place] [address] PCP - General Family Medicine 05/04/23 Diana Desir, [facility] 3033 [place] [address] Pharmacist Pharmacist 04/17/21 Rain Galaviz PA-C [address] [place] [address] [address] [place] [address] Physician Market Research Associate Dermatology 04/28/21 Tavia Wyatt MD [address] [place] [address] [address] [facility] [place] [address] Dermatology 07/14/21 Erica Farrell APRN ONLINE MARKETING ANALYST 6405 [facility] [address] [place] [address] Nurse Practitioner Cardiovascular Disease 09/09/21 Rich Barrett MD 516 [facility] 9A [place] [address] Physician Ophthalmology 7/14/22 Neil Kent MD 500 [place], [place] 993075 Dermatology 02/24/22 Diana Desir, [facility] 3033 [place], [place] 541826 Assigned MTM Pharmacist 04/07/22 Livan Sharif MD [address] [facility] [address] [place] 47[address] Cardiovascular Disease 05/14/22 Catherine Cm MD [address] [place] 204875 Cardiovascular Disease 07/21/22 Valery Veronica, PAUcheC 909 [place], [place] 204755 Physician Market Research Associate Dermatology 07/21/22 Brea Quinn APRN ONLINE MARKETING ANALYST 500 [place], [place] 547[address] Nurse Practitioner Dermatology 09/21/22 Brea Qunin APRN ONLINE MARKETING ANALYST 6401 [place], [place] 874532 Assigned Surgical Provider 10/09/22 [place] [address] [place] [address] Assigned Musculoskeletal Provider 10/09/22 Alfonso Renteria MD [address] [place], [place] [address]76 Assigned Neuroscience Provider 04/02/23 Radha Lomeli APRN ONLINE MARKETING ANALYST [address] [place], [place] [address] Assigned Heart and Vascular Provider 05/28/23 Jelena David OD [address] [facility] [place] [address] MD Ophthalmology 06/15/23 Esha Grimm PA-C [address] [place] [phone] Assigned PCP 07/16/23 Valery Veronica PA-C [address] [place] [address] 833035 Physician Market Research Associate Dermatology 09/19/23 Rey Tay MD [address] [place] [address] 039085 Gastroenterology 09/20/23 Rocky Zepeda DO [address] [place] [address] 027625 Physician Gastroenterology 09/20/23 Philip Dumont MD [address] [place] [address]005 Physician Ophthalmology 09/22/23 Meredith Carrera PA-C [address] [place] [address] 871185 Assigned Gastroenterology Provider 11/01/23 Neil Kent MD [address] [place] [address] Dermatology 11/02/23 [place] [address] [address] [address] Neurological Surgery 12/26/23 documented as of this encounter
--- OUTSIDE RECORDS SUMMARY | 2024-03-12 19:33 | XMS_ITS | Encounter Summary ---
Author Organization [facility] Address [address] [place] [address] Care Team Providers Care Senior Quality Control Technician Name Role Phone Thang Diana [place] [facility] Unavailable Rain Galaviz PA-C Unavailable Tavia Wyatt MD Unavailable Unavailable Erica Farrell APRN SHUTTLELESS LOOM WEAVER Unavailable Rich Barrett MD Unavailable Neil Kent MD Unavailable Diana Desir Stanislav [facility] Unavailable [phone] Livan Sharif MD Unavailable Catherine Cm MD Unavailable + Valery Veronica PA-C Unavailable [phone] Brea Quinn GRAIN SHOVELER SHUTTLELESS LOOM WEAVER Unavailable Brea Quinn GRAIN SHOVELER SHUTTLELESS LOOM WEAVER Unavailable Jose Francisco Johnson MD Unavailable Alfonso Renteria MD Unavailable + [phone] Esha Grimm PA-C Primary Care Provider [phone] Radha Lomeli GRAIN SHOVELER SHUTTLELESS LOOM WEAVER Unavailable [phone] Jelena David OD Unavailable Esha GrimmC Unavailable [phone] Valery VeronicaC Unavailable [phone] Rey Tay MD Unavailable Rocky Zepeda DO Unavailable Philip Dumont MD Unavailable [phone] Merdeith CarreraC Unavailable [phone] Neil Kent MD Unavailable Juan Pablo Emmanuel MD Unavailable [phone] Encounter Details Date Type Department Care Team [...] you attend [facility] or catholic services? 1 to 4 times [...] Answer Date Recorded PHQ-2 Score 0 10/25/2023 [facility] of Occupat ional [facility] - Occupational Stress Questionnaire Answer [...] exercise at this level? 30 min 03/10/2023 [place] Depression Scale Answer Date Recorded [place] Depression Score 5 01/14/2021 Last EPDS Self [...] [facility] [address] [facility] 100 [place] [address] Ebony Cid, GRAIN SHOVELER [facility] 500 [place], [place] 722145 03/27/2024 11:00 AM CDT Office Visit [facility] 3305 [facility] [address] [place] [phone] Jelena David, [address] [facility] [place] [address] 04/19/2024 2:45 PM CDT Office Visit [facility] [address] [place] [address] Audrey Waite PA-C 420 [facility] [address]385, [facility] 603 [place], [place] 393865 05/08/2024 1:30 PM CDT Office Visit [facility] [address] [place] [phone] Lauren Claudio PA-C [id number] [place] [address] [id number] Esha Grimm PA-C [address] [place] [phone] 06/21/2024 2:00 PM DISPATCHER MAINTENANCE SERVICE Office Visit [facility] [place] [address] [facility], [address] [place] [address] [place] [address] [place] [address] Johnny Penn MD 8074 [place] [address] Scheduled Procedures Name Priority Associated Diagnoses Date/Ti tn ESOPHAGOGASTRODUODENOSCOPY Eosinophilic esophagitis Esophageal dysphagia documented as of this encounter Visit Diagnoses Not on filedocumented in this encounter Additional Health Concerns Infection Onset Date Last Indicated Resolved Time Rule Out COVID-19 12/26/2023 12/26/2023 12/26/2023 9:50 AM CDT Assessment Noted Time PHQ-9 Depression Total Score: 4 06/20/20 23 8:40 AM DISPATCHER MAINTENANCE SERVICE documented as of this encounter Care Teams Senior Quality Control Technician Relationship Specialty Start Date End Date Esha Grimm PA-C [address] [place] [phone] PCP - General Family Medicine 05/04/23 Diana Desir, [facility] 3033 [place] [address] Pharmacist Pharmacist 04/17/21 Rain Galaviz PA-C [address] [place] [address] DR [address] [facility] [place] [address] Physician Mapping Technician Dermatology 04/28/21 Tavia Wyatt MD [address] [place] [address] DR RAZO [facility] [place] [address] Dermatology 07/14/21 Erica Farrell APRN SHUTTLELESS LOOM WEAVER [address] [place] [address] Nurse Practitioner Cardiovascular Disease 09/09/21 Rich Barrett MD [address] [place] [address] 077075 Physician Ophthalmology 01/21/22 Neil Kent MD [address] [place] [address] 857085 Dermatology 02/24/22 [facility] 3033 [place], [place] 340356 Assigned [facility] Pharmacist 04/07/22 Livan Sharif MD [address] 00 [place] [address] Cardiovascular Disease 05/14/22 Catherine Cm MD [address] [place] [address] Cardiovascular Disease 07/21/22 Valery Veronica, PAUcheC [address] [place] [address] 685415 Physician Mapping Technician Dermatology 07/21/22 Brea Quinn APRN SHUTTLELESS LOOM WEAVER 500 [place] [address] Nurse Practitioner Dermatology 09/21/22 Bera Quinn APRN SHUTTLELESS LOOM WEAVER 6401 [place] [address] Assigned Surgical Provider 10/09/22 [place] [address] [address] [facility] 300 [place], [place] 586447 Assigned Musculoskeletal Provider 10/09/22 Alfonso Renteria MD 5775 [facility] 200 [place], [place] 529686 Assigned Neuroscience Provider 04/02/23 Radha Lomeli APRN SHUTTLELESS LOOM WEAVER 6405 [facility] [address] [place] [address] Assigned Heart and Vascular Provider 05/28/23 Jelena David OD [address] [facility] [place] [address] Ophthalmology 06/15/23 Esha Grimm PA-C [address] [place] [phone] Assigned PCP 07/16/23 Valery Veronica PA-C 909 [place] [address] Physician Mapping Technician Dermatology 09/19/23 Rey Tay MD [address] [place] [address] Gastroenterology 09/20/23 Rocky Zepeda DO [address] [place] [address] Physician Gastroenterology 09/20/23 Philip Dumont MD [address] [place] [address] Physician Ophthalmology 09/22/23 Meredith Carrera PA-C [address] [place] [address] Assigned Gastroenterology Provider 11/01/23 Neil Kent MD [address] [place] [address] Dermatology 11/02/23 [place] [address] [place] [address] Neurological Surgery 12/26/23 documented as of this encounter
--- OUTSIDE RECORDS SUMMARY | 2024-03-12 19:33 | XMS_ITS | Encounter Summary ---
Author Organization [facility] Address [address] [place] [address] Care Team Providers Care Costume Mistress Name Role Phone Thang Diana [place] [facility] Unavailable [phone] Rain Galaviz PA-C Unavailable [phone] Tavia Wyatt MD Unavailable Unavailable Erica Farrell APRN MAGNETIC TESTING TECHNICIAN Unavailable Rich Barrett MD Unavailable Neil Kent MD Unavailable Diana Desir Stanislav [facility] Unavailable [phone] Livan Sharif MD Unavailable Catherine Cm MD Unavailable + Valery Veronica PA-C Unavailable [phone] Brea Quinn MISSILE INSPECTOR MAGNETIC TESTING TECHNICIAN Unavailable Brea Quinn MISSILE INSPECTOR MAGNETIC TESTING TECHNICIAN Unavailable Jose Francisco Johnson MD Unavailable Alfonso Renteria MD Unavailable + [phone] Esha Grimm PA-C Primary Care Provider Radha Lomeli MISSILE INSPECTOR MAGNETIC TESTING TECHNICIAN Unavailable [phone] Jelena David OD Unavailable Esha Grimm PA-C Unavailable [phone] Valery VeronicaC Unavailable Rey Tay MD Unavailable ZepedaEvansximena STEVENS Unavailable Philip Dumont MD Unavailable Meredith CarreraC Unavailable [phone] Neil Kent MD Unavailable Juan Pablo Emmanuel MD Unavailable [phone] Reason for Visit * Reason Onset Date Comments Same Day Appointment 12/26/2023 sore throat , body aches, headaches couple days Encounter Details Date Type Department Care Team (Late st Contact Info) Description 12/26/2023 Telephone [facility] [address] [place] [address] Esha Grimm PA-C [address] [place] [address] Same Day Appointment (sore throat, [...] attend [facility] or jew services? 1 to 4 times [...] Answer Date Recorded PHQ-2 Score 0 10/25/2023 [facility] of Occupat ional Health - Occupational Stress [...] exercise at this level? 30 min 03/10/2023 [place] Depression Scale Answer Date Recorded [place] Depression Score 5 01/14/2021 Last EPDS Self [...] we send this information to you in [facility] or would you prefer to receive a [...] [facility] 1747 [facility] [address] [place] [phone] Ebony Cid, MISSILE INSPECTOR [facility] 500 [place], [place] 650665 03/27/2024 11:00 AM CDT Office Visit [facility] [address] [facility] [address] [place] [phone] Jelena David, [address] [place] [address] 04/19/2024 2:45 PM CDT Office Visit [facility] 830 [place] [phone] Audrey Waite PA-C 420 [facility] B385, [facility] 603 [place] [address] 05/08/2024 1:30 PM CDT Office Visit [facility] [address] [place] [phone] Lauren Claudio PA-C [address] [place], [place] [phone] Esha Grimm PA-C [address] [place] [phone] 06/21/2024 2:00 PM WOOD BOX MAKER Office Visit [facility] Neurology Clinics - [place] 6545 [facility], [address] [place] [phone] [place] [address] [place] 082897 Johnny Penn MD [address] [place] [address] Scheduled Procedures Name Priority Associated Diagnoses Date/Ti me ESOPHAGOGASTRODUODENOSCOPY Eosinophilic esophagitis Esophageal dysphagia documented as of this encounter Visit Diagnoses Not on filedocumented in this encounter Additional Health Concerns Assessment Noted Time PHQ-9 Depression Total Score: 4 06/20/20 23 8:40 AM WOOD BOX MAKER documented as of this encounter Care Teams Costume Mistress Relationship Specialty Start Date End Date Esha Grimm PA-C [address] [place] [phone] PCP - General Family Medicine 05/04/23 Diana Desir, [facility] 3033 [place] [address] Pharmacist Pharmacist 04/17/21 Rain Galaviz PA-C [address] [place] [address] DR [address] [place] [address] Physician Marketing Analytics Manager Dermatology 04/28/21 Tavia Wyatt MD [address] [place] [address] [place] [address] Dermatology 07/14/21 Erica Farrell APRN MAGNETIC TESTING TECHNICIAN [address] [place] [address] Nurse Practitioner Cardiovascular Disease 09/09/21 Rich Barrett MD 516 [facility] [address]A [place], [place] [address] Physician Ophthalmology 01/21/22 Neil Kent MD 500 [place], [place] 188045 Dermatology 02/24/22 Diana Desir, [facility] 3033 [place], [place] 195646 Assigned [place] Pharmacist 04/07/22 Livan Sharif MD [address] [place] 115595 Cardiovascular Disease 05/14/22 Catherine Cm MD 6405 [facility] [address] [place] 082575 Cardiovascular Disease 07/21/22 Valery Veronica, PA-C 909 [place], [place] 916015 Physician Marketing Analytics Manager Dermatology 07/21/22 Brea Quinn APRN MAGNETIC TESTING TECHNICIAN 500 [place], [place] 004575 Nurse Practitioner Dermatology 09/21/22 Brea Quinn APRN MAGNETIC TESTING TECHNICIAN 6401 [facility] [place] [address] Assigned Surgical Provider 10/09/22 [place] [address] [address] 300 [place] [address] Assigned Musculoskeletal Provider 10/09/22 Alfonso Renteria MD [address] [place] [facility] 200 [place], [place] 378486 Assigned Neuroscience Provider 04/02/23 Radha Lomeli, MISSILE INSPECTOR MAGNETIC TESTING TECHNICIAN 6405 [facility] [address] [place], [place] 135805 Assigned Heart and Vascular Provider 05/28/23 Jelena David OD [address] [place] [address] Ophthalmology 06/15/23 Esha Grimm PA-C [address] [place] [phone] Assigned PCP 07/16/23 Valery Veronica PA-C [address] [place] [address] 066055 Physician Marketing Analytics Manager Dermatology 09/19/23 Rey Tay MD [address] [place] [address] 584635 Gastroenterology 09/20/23 Rocky Zepeda DO [address] [place] [address] 836455 Physician Gastroenterology 09/20/23 Philip Dumont MD [address] [place] [address] Physician Ophthalmology 09/22/23 Meredith Carrera PA-C [address] [place] [address] Assigned Gastroenterology Provider 11/01/23 Neil Kent MD [address] [place] [address] MD Dermatology 11/02/23 [place] [address] [place] [place], [place] 992957 Neurological Surgery 12/26/23 documented as of this encounter
--- OUTSIDE RECORDS SUMMARY | 2024-03-12 19:33 | XMS_ITS | Encounter Summary ---
Author Organization [facility] Address [address] [place] [address] Care Team Providers Care Ring Rolling Machine Operator Name Role Phone Thang Diana [place] [facility] Unavailable Rain Galaviz PA-C Unavailable [phone] Tavia Wyatt MD Unavailable Unavailable Erica Farrell APRN MACHINE INSTALLER Unavailable Rich Barrett MD Unavailable Neil Kent MD Unavailable Diana Desir Stanislav [facility] Unavailable [phone] Livan Sharif MD Unavailable Catherine Cm MD Unavailable + Valery Veronica PA-C Unavailable [phone] Brea Quinn PROPERTY WORKER MACHINE INSTALLER Unavailable Brea Quinn PROPERTY WORKER MACHINE INSTALLER Unavailable Jose Francisco Johnson MD Unavailable Alfonso Renteria MD Unavailable + [phone] Esha Grimm PA-C Primary Care Provider [phone] Radha Lomeli PROPERTY WORKER MACHINE INSTALLER Unavailable [phone] Jelena David OD Unavailable Esha Grimm PA-C Unavailable [phone] Valery Veronica PA-C Unavailable [phone] Rey Tay MD Unavailable Rocky Zepeda DO Unavailable Philip Dumont MD Unavailable Meredith Carrera PA-C Unavailable Neil Kent MD Unavailable Juan Pablo Emmanuel MD Unavailable Audrey Waite PA-C Unavailable [phone] Reason for Visit * Reason Onset Date Comments Call Back 12/21/2023 Schedule appt to brandy Encounter Details Date Type Department Care Team (Late st Contact Info) Description 12/21/2023 Telephone [facility] 6405 [facility] [address] [place] [address] Livan Sharif MD 6405 [facility] [address] [place] [address] Call Back (Schedule appt tomorrow [...] How often do you attend chur or amish services? 1 to 4 times [...] Answer Date Recorded PHQ-2 Score 0 10/25/2023 [facility] of Occupat ional Health - [...] at this level? 30 min 03/10/2023 [place] Depression Scale Answer Date Recorded [place] Depression Score 5 01/14/2021 Last EPDS Self [...] msg. Ty-Sasi * Telephone Encounter - Carley Myles, VJ - 12/21/2023 4:16 PM CDT Discussed with [...] on wait list for . 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 Carley RN [facility] * Telephone Encounter - Sandra Whiting - 12/21/2023 12:34 PM CDT [facility] Phone Message May a detailed [...] Description 03/26/2024 11:20 AM CDT Office Visit [facility] Spine and Neurosurgery 1747 [facility] 100 [place] [address] Ebony Cid, [facility] 500 [place] [address] 03/27/2024 11:00 AM CDT Office Visit [facility] [place] [address] [facility] [address] [place] [phone] Jelena David, [place] 3305 [facility] [place] [address] 04/19/2024 2:45 PM CDT Office Visit [facility] 830 [place] [phone] Audrey Waite, ROVERTO [address] [place] [address] [address]385, [facility] 603 [place], [place] 900375 05/08/2024 1:30 PM CDT Office Visit [facility] [address] [place] [address] Lauren Claudio PA-C [id number] [place] [address] Esha Grimm PA-C [address] [place] [address] 06/21/2024 2:00 PM MAGAZINE KEEPER Office Visit [facility] Neurology [facility] [address] [place] [address], [address] [place] [address] [place] [address] [place] [address] [address] Johnny Penn MD 6545 [place] [address] Scheduled Procedures Name Priority Associated Diagnoses Date/Ti hi ESOPHAGOGASTRODUODENOSCOPY Eosinophilic esophagitis Esophageal dysphagia documented as of this encounter Visit Diagnoses Not on filedocumented in this encounter Additional Health Concerns Infection Onset Date Last Indicated Resolved Time Rule Out COVID-19 12/26/2023 12/26/2023 12/26/2023 9:50 AM CDT Assessment Noted Time PHQ-9 Depression Total Score: 4 06/20/20 23 8:40 AM MAGAZINE KEEPER documented as of this encounter Care Teams Ring Rolling Machine Operator Relationship Specialty Start Date End Date Esha Grimm PA-C [id number] [place] [phone] PCP - General Family Medicine 05/04/23 Diana Desir [facility] 3033 [place] [address] Pharmacist Pharmacist 04/17/21 Rain Galaviz PA-C [address] [place] [address] DR [address] [place] [address] Physician Lumber Sorter Machine Dermatology 04/28/21 Tavia Wyatt MD [address] [place] [address] [address] [facility] [address] Dermatology 07/14/21 Erica Farrell APRN MACHINE INSTALLER [address] [place] 043545 Nurse Practitioner Cardiovascular Disease 09/09/21 Rich Barrett MD [address] [place] [address] 9A [place], [place] 024565 Physician Ophthalmology 01/21/22 Neil Kent MD [address] [place] [address] 897125 Dermatology 02/24/22 Diana Desir, [facility]3 [place] [address] Assigned MTM Pharmacist 04/07/22 Livan Sharif MD [address] [place] 351635 Cardiovascular Disease 05/14/22 Catherine Cm MD [address] [place] 813915 Cardiovascular Disease 07/21/22 Valery Veronica PA-C 909 [place], [place] 764075 Physician Lumber Sorter Machine Dermatology 07/21/22 Brea Quinn APRN MACHINE INSTALLER 500 [place], [place] 536655 Nurse Practitioner Dermatology 09/21/22 Brea Quinn APRN MACHINE INSTALLER 6401 [place] [address] Assigned Surgical Provider 10/09/22 [place] [address] [place] [address] [address] Assigned Musculoskeletal Provider 10/09/22 Alfonso Renteria MD 5775 [facility] 200 [place], [place] 612066 Assigned Neuroscience Provider 04/02/23 Radha Lomeli APRN MACHINE INSTALLER 6405 [facility] [place] [address] [place] [address] Assigned Heart and Vascular Provider 05/28/23 Jelena David OD 3305 [facility] [place] [id number] Ophthalmology 06/15/23 Esha Grimm PA-C [address] [place] [address]22983 Assigned PCP 07/16/23 Valery Veronica PA-C 909 [place], [place] 654175 Physician Lumber Sorter Machine Dermatology 09/19/23 Rey Tay MD 9 [place] [address] MD Gastroenterology 09/20/23 Rocky Zepeda DO 500 [place], [place] 000185 Physician Gastroenterology 09/20/23 Philip Dumont MD [address] [place] [address] 745785 Physician Ophthalmology 09/22/23 Meredith Carrera PA-C [address] [place] [address] Assigned Gastroenterology Provider 11/01/23 Neil Kent MD [address] [address] Dermatology 11/02/23 [place] [address] [place] [address] Neurological Surgery 12/26/23 Audrey Waite PA-C 500 [place] [address] Physician Lumber Sorter Machine Dermatology 02/28/24 documented as of this encounter
--- OUTSIDE RECORDS SUMMARY | 2024-03-12 19:33 | XMS_ITS | Encounter Summary ---
Author Organization [place] Address [address] [place] [address] Care Team Providers Care Mobile Nurse Name Role Phone Thang Diana [place] [facility] Unavailable [phone] Rain Galaviz PA-C Unavailable Tavia Wyatt MD Unavailable Unavailable Erica Farrell APRN CANAL SUPERINTENDENT Unavailable Rich Barrett MD Unavailable Neil Kent MD Unavailable Diana Desir Stanislav [facility] Unavailable [phone] Livan Sharif MD Unavailable Catherine Cm MD Unavailable + Valery Veronica PA-C Unavailable [phone] Brea Quinn SCHEDULING COORDINATOR CANAL SUPERINTENDENT Unavailable Brea Quinn SCHEDULING COORDINATOR CANAL SUPERINTENDENT Unavailable [phone] Jose Francisco Johnson MD Unavailable Alfonso Renteria MD Unavailable + [phone] Esha Grimm PA-C Primary Care Provider Radha Lomeli SCHEDULING COORDINATOR CANAL SUPERINTENDENT Unavailable [phone] Jelena David OD Unavailable Alfa Eshalincoln DOWC Unavailable [phone] Valery VeronicaC Unavailable [phone] Rey Tay MD Unavailable Rocky Zeepda Unavailable Philip Dumont MD Unavailable [phone] Meredith CarreraC Unavailable [phone] Neil Kent MD Unavailable Encounter Details Date [...] [facility] ional [facility] - Occupational Stress Questionnaire Answer Date [...] exercise at this level? 30 min 03/10/2023 Stacy Depression Scale Answer Date Recorded Stacy Depression Score 5 01/14/2021 Last EPDS Self [...] Description 03/26/2024 11:20 AM CDT Office Visit [facility] Spine and Neurosurgery 1747 [facility] 100 [place] [address] Ebony Cid, SCHEDULING COORDINATOR CANAL SUPERINTENDENT 500 [place], [place] 9[address]275 03/27/2024 11:00 AM CDT [facility] [address] [facility] [address] [place] [address] Jelena David, [address] [facility] [place] [address] 04/19/2024 2:45 PM CDT Office Visit [facility] 830 [place] [address] Audrey Waite PA-C 420 [facility] [address]385, [facility] 603 [place], [place] [address] 05/08/2024 1:30 PM CDT Office Visit [facility] 17798 [place] [phone] Lauren Claudio PA-C [address] [place] [address] Esha Grimm PA-C [address] [place] [address] 06/21/2024 2:00 PM TRAVEL SERVICE CONSULTANT Office Visit [facility]rology [facility] - [place] 6545 [facility], [address] [place] [address] [place] [address] [place], [place] [phone] Johnny Penn MD 1497 [place] [address] Scheduled Procedures Name Priority Associated Diagnoses Date/Ti pr ESOPHAGOGASTRODUODENOSCOPY Eosinophilic esophagitis Esophageal dysphagia documented as of this encounter Visit Diagnoses Not on filedocumented in this encounter Additional Health Concerns Assessment Noted Time PHQ-9 Depression Total Score: 4 06/20/20 23 8:40 AM TRAVEL SERVICE CONSULTANT documented as of this encounter Care Teams Mobile Nurse Relationship Specialty Start Date End Date Esha Grimm PA-C [address] [place] [address] PCP - General Family Medicine 05/04/23 Diana Desir, [facility] 3033 [place] [address] Pharmacist Pharmacist 04/17/21 Rain Galaviz PA-C [address] [place] [address] [address] [place] [address] Physician Package Delivery Driver Dermatology 04/28/21 Tavia Wyatt MD [address] [place] [address] [address] [place] [address] Dermatology 07/14/21 Erica Farrell APRN CANAL SUPERINTENDENT [address] [place], [place] 48[address] Nurse Practitioner Cardiovascular Disease 09/09/21 Rich Barrett MD 516 [facility] 9A [place] [address] Physician Ophthalmology 01/21/22 Neil Kent MD 500 [place] [address] Dermatology 02/24/22 Diana Desir, [facility] 3033 [place], [place] 287356 Assigned MTM Pharmacist 04/07/22 Livan Sharif MD [address] [place], [place] [address] Cardiovascular Disease 05/14/22 Catherine Cm MD [address] 531715 Cardiovascular Disease 07/21/22 Vaelry Veronica, PA-C 909 [place], [place] [address]195 Physician Package Delivery Driver Dermatology 07/21/22 Brea Quinn APRN CANAL SUPERINTENDENT 500 [place], [place] [address] Nurse Practitioner Dermatology 09/21/22 Brea Quinn, SCHEDULING COORDINATOR CANAL SUPERINTENDENT 6401 [facility] [place] [address] Assigned Surgical Provider 10/09/22 [place] [address] [address] [facility] 300 [place] [address] Assigned Musculoskeletal Provider 10/09/22 Alfonso Renteria MD [address] [facility] 200 [place], [place] [phone] Assigned Neuroscience Provider 04/02/23 Radha Lomeli APRN CANAL SUPERINTENDENT 6405 [facility] [address] [place] [address] Assigned Heart and Vascular Provider 05/28/23 Jelena David OD [address] [facility] [address] [place] [id number] Ophthalmology 06/15/23 Esha Grimm PA-C [address] [place] [address] Assigned PCP 07/16/23 Valery Veronica PA-C [address]09 [place], [place] 021575 Physician Package Delivery Driver Dermatology 09/19/23 Rey Tay MD 909 [place], [place] 4207[address] Gastroenterology 09/20/23 Rocky Zepeda DO [address] [place] [address] Physician Gastroenterology 09/20/23 Philip Dumont MD [address] [place] [address] Physician Ophthalmology 09/22/23 Meredith Carrera PA-C [address] [place] [address] Assigned Gastroenterology Provider 11/01/23 Neil Kent MD [address] [address] Dermatology 11/02/23 documented as of this encounter
--- OUTSIDE RECORDS SUMMARY | 2024-03-12 19:33 | XMS_ITS | Encounter Summary ---
Author Organization [place] Address [address] [place] [address] Care Team Providers Care Ed Educational Aide Name Role Phone Thang Diana [place] [facility] Unavailable Rain Galaviz PA-C Unavailable Tavia Wyatt MD Unavailable Unavailable Erica Farrell APRN SLAB CONDITIONER SUPERVISOR Unavailable Rich Barrett MD Unavailable Neil Kent MD Unavailable Diana Desir Stanislav [facility] Unavailable [phone] Livan Sharif MD Unavailable Catherine Cm MD Unavailable + Valery Veronica PA-C Unavailable [phone] Brea Quinn PULLER OVER SLAB CONDITIONER SUPERVISOR Unavailable [phone] Brea Quinn PULLER OVER SLAB CONDITIONER SUPERVISOR Unavailable Jose Francisco Johnson MD Unavailable Alfonso Renteria MD Unavailable + [phone] Esha Grimm PA-C Primary Care Provider Radha Lomeli PULLER OVER SLAB CONDITIONER SUPERVISOR Unavailable [phone] Jelena David OD Unavailable Alfa Eshalincoln DOWC Unavailable [phone] Valery VeronicaC Unavailable [phone] Rey Tay MD Unavailable Rocky Zepeda Unavailable Philip Dumont MD Unavailable [phone] Meredith CarreraC Unavailable [phone] Neil Kent MD Unavailable Encounter Details Date [...] Answer Date Recorded PHQ-2 Score 0 10/25/2023 [facility] of Occupat ional [facility] - Occupational Stress [...] exercise at this level? 30 min 03/10/2023 Mathews Depression Scale Answer Date Recorded Mathews Depression Score 5 01/14/2021 Last EPDS Self [...] Description 03/26/2024 11:20 AM CDT Office Visit [facility] Spine and Neurosurgery 1747 [facility] 100 [place] [address] Ebony Cid, PULLER OVER SLAB CONDITIONER SUPERVISOR 500 [place], [place] [address] 03/27/2024 11:00 AM CDT Office Visit [facility] 3305 [facility] [address] [place] [address] Jelena David, [address] [facility] [place] [id number] 04/19/2024 2:45 PM CDT Office Visit [facility] 830 [place] [address] Audrey Waite PA-C 420 [facility] [address]385, [facility] 603 [place], [place] [address] 05/08/2024 1:30 PM CDT Office Visit [facility] [address] [place] [address] Lauren Claudio PA-C [address] [place] [address] Esha Grimm PA-C [address] [place] [address] 06/21/2024 2:00 PM PRINCIPAL SYSTEMS ARCHITECT Office Visit [facility] Neurology Clinics - [place] [address] [facility], [address] [place] [address] [place] [address] [place], [place] [phone] Johnny Penn MD 8668 [place] [address] Scheduled Procedures Name Priority Associated Diagnoses Date/Ti mo ESOPHAGOGASTRODUODENOSCOPY Eosinophilic esophagitis Esophageal dysphagia documented as of this encounter Visit Diagnoses Not on filedocumented in this encounter Additional Health Concerns Assessment Noted Time PHQ-9 Depression Total Score: 4 06/20/20 23 8:40 AM PRINCIPAL SYSTEMS ARCHITECT documented as of this encounter Care Teams Ed Educational Aide Relationship Specialty Start Date End Date Esha Grimm PA-C [address] [place] [address] PCP - General Family Medicine 05/04/23 Diana Desir, [facility] 3033 [place] [address] Pharmacist Pharmacist 04/17/21 Rain Galaviz PA-C [address] [place] [address] [address] [place] [address] Physician Vice President And Portfolio Manager Dermatology 04/28/21 Tavia Wyatt MD [address] [place] [address] [address] [place] [address] Dermatology 07/14/21 Erica Farrell APRN SLAB CONDITIONER SUPERVISOR [address] [place], [place] 38[address] Nurse Practitioner Cardiovascular Disease 09/09/21 Rich Barrett MD [address] [facility] 9A [place] [address] Physician Ophthalmology 01/21/22 Neil Kent MD 500 [place] [address] Dermatology 02/24/22 Diana Desir, [facility] 3033 [place], [place] [address]956 Assigned MTM Pharmacist 04/07/22 Livan Sharif MD [address] 00 [place], [place] 97[address] Cardiovascular Disease 05/14/22 Catherine Cm MD [address] 2065[address] Cardiovascular Disease 07/21/22 Valery Veronica, PA-C 909 [place], [place] 940485 Physician Vice President And Portfolio Manager Dermatology 07/21/22 Brea Quinn APRN SLAB CONDITIONER SUPERVISOR 500 [place], [place] [address] Nurse Practitioner Dermatology 09/21/22 Brea Quinn, PULLER OVER SLAB CONDITIONER SUPERVISOR 6401 [facility] [place] [id number] Assigned Surgical Provider 10/09/22 [place] [address] [address] [facility] 300 [place] [address] Assigned Musculoskeletal Provider 10/09/22 Alfonso Renteria MD [address] [facility] 200 [place], [place] [address] Assigned Neuroscience Provider 04/02/23 Radha Lomeli APRN SLAB CONDITIONER SUPERVISOR 6405 [facility] [address] [place] [address] Assigned Heart and Vascular Provider 05/28/23 Jelena David OD [address] [facility] [address] [place] [id number] Ophthalmology 06/15/23 Esha Grimm PA-C [address] [place] [address] Assigned PCP 07/16/23 Valery Veronica PA-C 909 [place], [place] 6[address] Physician Vice President And Portfolio Manager Dermatology 09/19/23 Rey Tay MD 909 [place], [place] 24[address] Gastroenterology 09/20/23 Rocky Zepeda DO [address] [place] [address] Physician Gastroenterology 09/20/23 Philip Dumont MD [address] [place] [address] Physician Ophthalmology 09/22/23 Meredith Carrera PA-C [address] [place] [address] Assigned Gastroenterology Provider 11/01/23 Neil Kent MD [address] [address] Dermatology 11/02/23 documented as of this encounter
--- OUTSIDE RECORDS SUMMARY | 2024-03-12 19:33 | XMS_ITS | Encounter Summary ---
Author Organization [place] Address [address] [place] [address] Care Team Providers Care Assistant Director Name Role Phone Thang Diana [place] [facility] Unavailable Rain Galaviz PA-C Unavailable Tavia Wyatt MD Unavailable Unavailable Erica Farrell APRN BOWL SANDER Unavailable Rich Barrett MD Unavailable Neil Kent MD Unavailable Diana Desir Stanislav [facility] Unavailable [phone] Livan Sharif MD Unavailable Catherine Cm MD Unavailable + Valery Veronica PA-C Unavailable [phone] Brea Quinn RETAIL WIRELESS SALES REPRESENTATIVE BOWL SANDER Unavailable Brea Quinn RETAIL WIRELESS SALES REPRESENTATIVE BOWL SANDER Unavailable Jose Francisco Johnson MD Unavailable Alfonso Renteria MD Unavailable + [phone] Esha Grimm PA-C Primary Care Provider Radha Lomeli RETAIL WIRELESS SALES REPRESENTATIVE BOWL SANDER Unavailable [phone] Jelena David OD Unavailable Wicho Grimmlincoln [place] PAUcheC Unavailable [phone] Valery VeronicaC Unavailable [phone] Rey Tay MD Unavailable Rocky Zepeda DO Unavailable Philip Dumont MD Unavailable Meredith Carrera-C Unavailable Neil Kent MD Unavailable Reason for Visit * Diagnostic Imaging XR (Routine) - Pending Review Specialty Diagnoses / Procedures Referred By Qian mayers Referred To Contact Radiology. Diagnoses Chest tightness SOB (shortness of breath) Procedures XR Chest 2 Views Helen Cortez APRN BOWL SANDER [address] [place] [address] Referral ID Status Reason Start Date Expiration Date V isits Requested Visits Authorized [id number] Pending Review 12/21/2023 12/20/2024 1 1 Encounter Details Date Type Department Care Team (Latest Contact Info) Description 12/21/2023 1:20 PM CDT Ancillary Procedure [facility] [address] [place] [address] Helen Cortez APRN BOWL SANDER [address] [place] [address] Chest tightness; SOB (shortness of breath) Social [...] Score 0 10/25/2023 [facility] - Occupational Stress Questionnaire Answer [...] exercise at this level? 30 min 03/10/2023 Dora Depression Scale Answer Date Recorded Dora Depression Score 5 01/14/2021 Last EPDS Self [...] Description 03/26/2024 11:20 AM CDT Office Visit [facility] Spine and Neurosurgery 1747 [facility] [address] [place] [address] Ebony Cid, RETAIL WIRELESS SALES REPRESENTATIVE BOWL SANDER 500 [place] [address] 03/27/2024 11:00 AM CDT Office Visit [facility] [place] [address] [facility] [address] [place] [address] Jelena David, [place] 3305 [facility] [place] [address] 04/19/2024 2:45 PM CDT Office Visit [place] [address]70 [place] [address] Audrey Waite PA-C 420 [facility] [address], [facility] 603 [place], [place] [address] 05/08/2024 1:30 PM CDT Office Visit [facility] [address] [place] [address] Lauren Claudio PA-C [address] [place] [address] Esha Grimm PA-C [address] [place] [address] 06/21/2024 2:00 PM RN ADMIT Office Visit [facility] Neurology [address], [address] [place] [address] [place] [address] [place], [place] [address] Johnny Penn MD 6545 [place], [place] 7314[address] Scheduled Procedures Name Priority Associated Diagnoses Date/Ti [...] Pulmonary vasculature is unremarkable. CHIDI SCHWARTZ MD Sissy Cortez RETAIL WIRELESS SALES REPRESENTATIVE BOWL SANDER IMG DIAGNOSTIC IMAGI NG ORDERABLES documented in this encounter Visit Diagnoses Diagnosis Chest tightness Other chest pain SOB (shortness of breath) Shortness of breath documented in this encounter Additional Health Concerns Assessment Noted Time PHQ-9 Depression Total Score: 4 06/20/20 23 8:40 AM RN ADMIT documented as of this encounter Care Teams Assistant Director Relationship Specialty Start Date End Date Esha Grimm PA-C [address] [place] [address] PCP - General Family Medicine 05/04/23 Diana Desir [facility] 30[address] [facility] [place] [place] [address] Pharmacist Pharmacist 04/17/21 Rain Galaviz PA-C [address] [place] [address] [address] [place] [address] Physician Food Selector Dermatology 04/28/21 Tavia Wyatt MD [address] [place] [address] [address] [place] [facility] [address] Dermatology 07/14/21 Erica Farrell APRN BOWL SANDER [address] [place] [address] Nurse Practitioner Cardiovascular Disease 09/09/21 Rich Barrett MD [address] [place] [address] 040915 Physician Ophthalmology 01/21/22 Neil Kent MD [address] [place] [id number] MD Dermatology 02/24/22 Diana Desir, [facility] 3033 [place], [place] 395686 Assigned MTM Pharmacist 04/07/22 Livan Sharif MD [address] [place] [address] Cardiovascular Disease 05/14/22 Catherine Cm MD [address] [place] 97[address]85 Cardiovascular Disease 07/21/22 Valery Veronica, PA-C [address] [place] [address] 128915 Physician Food Selector Dermatology 07/21/22 Brea Quinn APRN BOWL SANDER 500 [place] [address] Nurse Practitioner Dermatology 09/21/22 Brea uQinn APRN BOWL SANDER 6401 [place] [address] Assigned Surgical Provider 10/09/22 [place] [address] [facility] 300 [place], [place] [address] Assigned Musculoskeletal Provider 10/09/22 Alfonso Renteria MD 5775 [facility] 200 [place], [place] [address] Assigned Neuroscience Provider 04/02/23 Radha Lomeli APRN BOWL SANDER 6405 [facility] [address] [place] [address] Assigned Heart and Vascular Provider 05/28/23 Jelena David OD [address] [facility] [place] [address] Ophthalmology 06/15/23 Esha Grimm PA-C [address] [place] [address] Assigned PCP 07/16/23 Valery Veronica PA-C 909 [place] [address] Physician Food Selector Dermatology 09/19/23 Rey Tay MD [address] [place] [address] Gastroenterology 09/20/23 Rocky Zepeda DO [address] [place] [address] Physician Gastroenterology 09/20/23 Philip Dumont MD [address] [place] [address] Physician Ophthalmology 09/22/23 Meredith Carrera PA-C [address] [place] [address] Assigned Gastroenterology Provider 11/01/23 Neil Kent MD [address] [place] [address] Dermatology 11/02/23 documented as of this encounter
--- OUTSIDE RECORDS SUMMARY | 2024-03-12 19:33 | XMS_ITS | Encounter Summary ---
Author Organization [place] Address [address] [place] [address] Care Team Providers Care Property Worker Name Role Phone Thang Diana Coloraod [facility] Unavailable [phone] Rain Galaviz PA-C Unavailable [phone] Tavia Wyatt MD Unavailable Unavailable Erica Farrell APRN COMMUNICATIONS TECH Unavailable Rich Barrett MD Unavailable Neil Kent MD Unavailable Diana Desir Stanislav [facility] Unavailable [phone] Livan Sharif MD Unavailable Catherine Cm MD Unavailable + Valery Veronica PA-C Unavailable [phone] Brea Quinn RUG CUTTER HELPER COMMUNICATIONS TECH Unavailable [phone] Brea Quinn RUG CUTTER HELPER COMMUNICATIONS TECH Unavailable Jose Francisco Johnson MD Unavailable Alfonso Renteria MD Unavailable + [phone] Esha Grimm PA-C Primary Care Provider [phone] Radha Lomeli RUG CUTTER HELPER COMMUNICATIONS TECH Unavailable [phone] Jeelna David OD Unavailable [phone] Wicho Grimmlincoln [place] PA-C Unavailable [phone] Valery VeronicaC Unavailable Rey Tay MD Unavailable ZepedaRocky Unavailable Philip Dumont MD Unavailable [phone] Meredith Carrera PA-C Unavailable Neil Kent MD Unavailable Juan Pablo Emmanuel MD Unavailable [phone] Reason for Visit * Reason Onset Date Comments Pre Visit Planning - 2 Attempts 01/02/2024 Pre charting Encounter Details Date Type Department Care Team (Late st Contact Info) Description 01/02/[address] [facility] Neurosurgery Clinic [address] [address] [place] [address] [address] Pre Visit Planning - 2 [...] 10/25/2023 [facility] - Occupational Stress [...] at this level? 30 min 03/10/2023 [place] Depression Scale Answer Date Recorded [place] Depression Score 5 01/14/2021 Last EPDS Self [...] 03/26/2024 11:20 AM CDT Office Visit [facility] Spine and Neurosurgery [address] [facility] 100 [place] [address] Ebony Cid, RUG CUTTER HELPER COMMUNICATIONS TECH [address] [place] [address] 03/27/2024 11:00 AM CDT Office Visit [facility] [place] [address] [facility] [address] [place] [phone] Jelena David, OD [address] [facility] [place] [address] 04/19/2024 2:45 PM CDT Office Visit [facility] 830 [place] [phone] Audrey Waite PA-C [address] [facility] [address], [facility] 603 [place], [place] [phone] 05/08/2024 1:30 PM CDT Office Visit [facility] [address] [place] [address] Lauren Claudio PA-C [address] [place] [address] Esha Grimm PA-C [address] [place] [address] 06/21/2024 2:00 PM ENERGY CONSERVATION TECHNICIAN Office Visit [facility] Neurology [facility] - [address], [address] [place] [address] [place] [address] [place] [address] Johnny Penn MD 6579 [place] [address] Scheduled Procedures Name Priority Associated Diagnoses Date/Ti sd ESOPHAGOGASTRODUODENOSCOPY Eosinophilic esophagitis Esophageal dysphagia documented as of this encounter Visit Diagnoses Not on filedocumented in this encounter Additional Health Concerns Assessment Noted Time PHQ-9 Depression Total Score: 4 06/20/20 23 8:40 AM ENERGY CONSERVATION TECHNICIAN documented as of this encounter Care Teams Property Worker Relationship Specialty Start Date End Date Esha Grimm PA-C [id number] [place] [address] PCP - General Family Medicine 05/04/23 Diana Desir, [facility] 3033 [place] [address] Pharmacist Pharmacist 04/17/21 Rain Galaviz PA-C [address] [place] [address] [address] [place] [address] Physician Victorian Literature Professor Dermatology 04/28/21 Tavia Wyatt MD [address] [place] [address] [facility] [address] Dermatology 07/14/21 Erica Farrell APRN COMMUNICATIONS TECH [address] [place] [address] Nurse Practitioner Cardiovascular Disease 09/09/21 Rich Barrett MD [address] [place] [address] [address] [place], [place] [address]285 Physician Ophthalmology 01/21/22 Neil Kent MD [address] [place], [place] [address] Dermatology 02/24/22 Diana Desir, [facility] 3033 [place] [address] Assigned MTM Pharmacist 04/07/22 Livan Sharif MD [address] [place] [address] Cardiovascular Disease 05/14/22 Catherine Cm MD [address] [place] 401635 Cardiovascular Disease 07/21/22 Valery Veronica PA-C 909 [place], [place] [address] Physician Victorian Literature Professor Dermatology 07/21/22 Brea Quinn APRN COMMUNICATIONS TECH 500 [place], [place] 866355 Nurse Practitioner Dermatology 09/21/22 Brea Quinn APRN COMMUNICATIONS TECH 6401 [place], [place] 652752 Assigned Surgical Provider 10/09/22 [place] [address] [facility] 300 [place], [place] 3254[address] Assigned Musculoskeletal Provider 10/09/22 Alfonso Renteria MD [address] [facility] 200 [place], [place] [phone] Assigned Neuroscience Provider 04/02/23 Radha Lomeli APRN COMMUNICATIONS TECH 6[address] [facility] [address] [place], [place] [address] Assigned Heart and Vascular Provider 05/28/23 Jelena David OD [address] [facility] [place] [address] Ophthalmology 06/15/23 Esha Grimm PA-C [address] [place] [phone] Assigned PCP 07/16/23 Valery Veronica PA-C 9 [place] [address] Physician Victorian Literature Professor Dermatology 09/19/23 Rey Tay MD [address] [place] [address] MD Gastroenterology 09/20/23 Rocky Zepeda DO [address] [place] [address] Physician Gastroenterology 09/20/23 Philip Dumont MD [address] [place] [address] Physician Ophthalmology 09/22/23 Meredith Carrera PA-C [address] [place] [address] Assigned Gastroenterology Provider 11/01/23 Neil Kent MD [address] [address] Dermatology 11/02/23 [place] [address] [place] [address] Neurological Surgery 12/26/23 documented as of this encounter
--- OUTSIDE RECORDS SUMMARY | 2024-03-12 19:33 | XMS_ITS | Encounter Summary ---
Author Organization [place] Address [address] [place] [address] Care Team Providers Care Archeologist Name Role Phone Thang Diana [place] [facility] Unavailable [phone] Rain Galaviz PA-C Unavailable Tavia Wyatt MD Unavailable Unavailable Erica Farrell APRN INVESTMENT TRADER Unavailable Rich Barrett MD Unavailable Neil Kent MD Unavailable Diana Desir Stanislav [facility] Unavailable [phone] Livan Sharif MD Unavailable Catherine Cm MD Unavailable + Valery Veronica PA-C Unavailable [phone] Brea Quinn YARD HOSTLER INVESTMENT TRADER Unavailable Brea Quinn YARD HOSTLER INVESTMENT TRADER Unavailable [phone] Jose Francisco Johnson MD Unavailable Alfonso Renteria MD Unavailable + [phone] Esha Grimm PA-C Primary Care Provider [phone] Radha Lomeli YARD HOSTLER INVESTMENT TRADER Unavailable [phone] Jelena David OD Unavailable Jesus Grimmyllincoln Medina PA-C Unavailable [phone] Valery Veronica-C Unavailable [phone] Rey Tay MD Unavailable ZepedaEvansximena [place] Unavailable Philip Dumont MD Unavailable Meredith Carerra PA-C Unavailable [phone] Neil Kent MD Unavailable Juan Pablo Emmanuel MD Unavailable [phone] Reason for Visit * Reason Comments Sore Flu Symptoms Encounter Details Date Type Department Care Team (Late st Contact Info) Description 12/26/2023 9:32 AM CDT - 12/26/2023 10:06 AM CDT Emergency [facility] Emergency Dept [address] [place] [phone] Augustus Kim MD [facility] [address] [place], [place] [phone] Chest tightness Discharge Disposition: Home or Self [...] week 03/10/2023 How often do you attend [facility] or [facility] services? 1 to 4 [...] Date Recorded PHQ-2 Score 0 10/25/2023 [facility] [place] [facility] Occupat ional [facility] - Occupational Stress [...] exercise at this level? 30 min 03/10/2023 [place] Depression Scale Answer Date Recorded [place] Depression Score 5 01/14/2021 Last EPDS Self [...] the Xpert Xpress CoV2/Flu/RSV Assay on the [employer] GeneXpert Instrument. This test should be ordered [...] management. This test was validated by the [facility] [employer]. These laboratories are certified under the ClinicalLaboratory Improvement Amendments of 1988 (CLIA-88) as qualified to perform high complexity laboratory testing. EKG 12 lead Status: None Result Value Ref Range Systolic Blood Pressure mmHg Diastolic Blood Pressure mmHg Ventricular Rate 65 BPM Atrial Rate 65 BPM WV Interval 148 ms QRS Duration 90 ms QT 382 ms QTc [address] 65 degrees R AXIS [address] 60 degrees Interpretation ECG Sinus rhythm Normal ECG When compared with ECG of 07-SEP-2023 18:14, QT has shortened Unconfirmed report - interpretation of this ECG is computer generated - see medical record for final interpretation Confirmed by - EMERGENCY ROOM, PHYSICIAN ([id number]), photo editor Saleem Gomez ([id number]) on 12/26/2023 10:17:45AM Group A Streptococcus PCR Throat Swab Status: Normal Specimen: Throat; Swab Result Value Ref Range Group A strep by PCR Not Detected Not Detected Narrative The Xpert Xpress Strep A test, performed on the [employer], is a rapid, qualitative in vitro [...] is negative. There is no evidence of PROPAGATION MANAGER, Jose De Jesus angina, or other concerning [...] 11:20 AM CDT Office Visit [facility] Spine and Neurosurgery [address] [place] [phone] Ebony Cid, YARD HOSTLER INVESTMENT TRADER 500 [place] [address] 03/27/2024 11:00 AM CDT [facility] [address] [facility] [address] [place] [phone] Jelena David, OD [address] [facility] [place] [address] 04/19/2024 2:45 PM CDT Office Visit [facility] [address] [place] [phone] Audrey Waite PA-C [address] [facility] [address], [facility] 603 [place], [place] [address] 05/08/2024 1:30 PM CDT Office Visit [facility] [address] [place] [phone] Lauren Claudio PA-C [address] [place], [place] [phone] Esha Grimm PA-C [address] [place] [phone] 06/21/2024 2:00 PM BOSS DYER Office Visit [facility] Neurology Clinics - [facility] [address] [facility], [address] [place] [phone] [place] [address] [place], [place] 36[address] Johnny Penn MD [address] [place] [address] Scheduled Procedures Name Priority Associated Diagnoses Date/Ti [...] Atrial Rate 65 BPM RADIOLOG Y RESULTS WV Interval 148 ms RADIOLOG Y RESULTS QRS Duration 90 ms RADIOLO GY RESULTS QT 382 ms RADIOLOGY RESULTS QTc 397 ms RADIOLOGY RESULTS P [address] 65 degrees RADIOLOGY RESULTS R AXIS 69 degrees RADIOLOGY RESULTS T [address] 60 degrees RADIOLOGY RESULTS Interpretation ECG Sinus rhythm Normal ECG When compared with ECG of 07-SEP-2023 18:14, QT has shortened Unconfirmed report - interpretation of this ECG is computer generated - see medical record for final interpretation Confirmed by - EMERGENCY ROOM, PHYSICIAN ([id number]), photo editor Saleem Gomez ([id number]) on 12/26/2023 10:17:45 AM RADIOLOGY RESULTS 12/26/2023 [...] AM CDT Narrative [facility] - 12/26/2023 9:37 AM CDT The Xpert Xpress Strep A test, performed on the [employer], is a rapid, qualitative in vitro [...] LAB - MICRO GENER AL ORDERABLES LABORATORY [facility] Acute Care Lab [address] [facility] (1st floor, no room number) [place] [address] * Symptomatic Influenza A/B, RSV, & SARS-CoV2 PCR (COVID-19) Nasopharyngeal (12/26/2023 9:02 AM CDT) [facility] Influenza A PCR Negative Negative 12/26/2023 [...] the Xpert Xpress CoV2/Flu/RSV Assay on the [employer] Instrument. This test should be ordered for [...] management. This test was validated by the [facility] [employer]. These laboratories are certified under the Clinical Laboratory Improvement Amendments of 1988 (CLIA-88) as qualified to perform high complexity laboratory testing. Augustus Kim MD LAB - MICRO GENER AL ORDERABLES [facility] Acute Care Lab [address] [facility] (1st floor, no room number) [place] [address] documented in this encounter Visit Diagnoses Diagnosis Chest tightness Other chest pain documented in this encounter Additional Health Concerns Infection Onset Date Last Indicated Resolved Time Rule Out COVID-19 12/26/2023 12/26/2023 12/26/2023 9:50 AM CDT Assessment Noted Time PHQ-9 Depression Total Score: 4 06/20/20 23 8:40 AM BOSS DYER documented as of this encounter Care Teams Archeologist Relationship Specialty Start Date End Date Esha Grimm PA-C [address] [place] [phone] PCP - General Family Medicine 05/04/[address] [facility] [address] [facility] [place] [address] Pharmacist Pharmacist 04/17/21 Rain Galaviz PA-C [address] [place] [address] [facility] [place] [address] Physician Shareholder Dermatology 04/28/21 Tavia Wyatt MD [address] [place] [address] [place] [address] Dermatology 07/14/21 Erica Farrell APRN INVESTMENT TRADER [address] [place] [address] Nurse Practitioner Cardiovascular Disease 09/09/21 Rich Barrett MD [address] 7016[address] Physician Ophthalmology 01/21/22 Neil Kent MD [address] [place] [address] Dermatology 02/24/22 [facility] 3033 [place], [place] [address]4816 Assigned [place] Pharmacist 04/07/22 Livan Sharif MD [address] [facility] [place], [place] [address] Cardiovascular Disease 05/14/22 Catherine Cm MD [address] [facility] [place] [address] Cardiovascular Disease 07/21/22 Valery Veronica, PA-C 909 [place], [place] [address] Physician Shareholder Dermatology 07/21/22 Brea Quinn APRN INVESTMENT TRADER 500 [place], [place] 3[address] Nurse Practitioner Dermatology 09/21/22 Brea Quinn APRN INVESTMENT TRADER 6401 [place] [address] Assigned Surgical Provider 10/09/22 [place] [address] [place] [facility] 300 [place], [place] 36[address] Assigned Musculoskeletal Provider 10/09/22 Alfonso Renteria MD [address] [facility] 200 [place], [place] [address] Assigned Neuroscience Provider 04/02/23 Radha Lomeli APRN INVESTMENT TRADER 6[address] [facility] [address] [place] [address] Assigned Heart and Vascular Provider 05/28/23 Jelena David OD [address] [facility] [place] [address] Ophthalmology 06/15/23 Esha Grimm PA-C [address] [place] [phone] Assigned PCP 07/16/23 Valery Veronica PA-C 909 [place] [address] Physician Shareholder Dermatology 09/19/23 Rey Tay MD [address] [place] [address] Gastroenterology 09/20/23 Rocky Zepeda DO [address] [place] [address] Physician Gastroenterology 09/20/23 Philip Dumont MD [address] [place] [address] Physician Ophthalmology 09/22/23 Meredith Carrera PA-C [address] [place] [address] Assigned Gastroenterology Provider 11/01/23 Neil Kent MD [address] [place] [address] Dermatology 11/02/23 [place] [address] [place] [address] Neurological Surgery 12/26/23 documented as of this encounter
--- OUTSIDE RECORDS SUMMARY | 2024-03-12 19:33 | XMS_ITS | Encounter Summary ---
Author Organization [place] Address [address] [place] [address] Care Team Providers Care Financial Institution President Name Role Phone Thang Diana Mayers [facility] Unavailable Rain Galaviz PA-C Unavailable Tavia Wyatt MD Unavailable Unavailable Erica Farrell APRN HOUSEHOLD COORDINATOR Unavailable Rich Barrett MD Unavailable Neil Kent MD Unavailable Diana Dseir Stanislav [facility] Unavailable [phone] Livan Sharif MD Unavailable Catherine Cm MD Unavailable + Valery Veronica PA-C Unavailable [phone] Brea Quinn CROP NUTRITION SCIENTIST HOUSEHOLD COORDINATOR Unavailable [phone] Brea Quinn CROP NUTRITION SCIENTIST HOUSEHOLD COORDINATOR Unavailable [phone] Jose Francisco Johnson MD Unavailable Alfonso Renteria MD Unavailable + [phone] Esha Grimm PA-C Primary Care Provider [phone] Radha Lomeli CROP NUTRITION SCIENTIST HOUSEHOLD COORDINATOR Unavailable [phone] Jelena David OD Unavailable Esha Grimm Adam PA-C Unavailable [phone] JeremíasValeryC Unavailable Rey Tay MD Unavailable Rocky Zepeda Unavailable Philip Dumont MD Unavailable [phone] Meredith CarreraC Unavailable [phone] Neil Kent MD Unavailable Juan Pablo Emmanuel MD Unavailable [phone] Reason for Referral * Rehab Therapy Physical Therapy (Priority: 1-2 Weeks) - Pending Review Specialty Diagnoses / Procedures Referred By Qian mayers Referred To Contact Diagnoses Chiari malformation type I (H) Neck pain Ebony Cid APRN HOUSEHOLD COORDINATOR [address] [place] [address] Referral ID Status Reason Start Date Expiration Date V isits Requested Visits Authorized [id number] Pending Review 01/05/2024 01/04/2025 1 1 Question Answer Course of Action: Evaluation and Treatment Specialty Services: Per Associated Diagnosis Scheduling Instructions: [employer] will call you to coordinate your care as prescribed by your provider. If you don't hear from a personal service representative within 2 business days, please call . Additional Information: neck pain, arm numbness. eval treat strengthening range of motion Comments Please be aware that coverage of these services is subject to the terms and limitations of your health insurance plan. Call member services at your health plan with any benefit or coverage questions. [employer] [facility] will call you to coordinate your care as prescribed by your provider. If you don't hear from a personal service representative within 2 business days, please call . * Diagnostic Imaging MRI (Routine) - Closed Specialty Diagnoses / Procedures Referred By Qian mayers Referred To Contact Radiology. Diagnoses Abnormal finding on MRI of brain Chiari malformation type I (H) Procedures MR Brain w/o & w Contrast Ebony Cid APRN HOUSEHOLD COORDINATOR [address] [place] [address] Referral ID Status Reason Start Date Expiration Date Visits Re quested Visits Authorized [id number] Closed 01/05/2024 01/04/2025 1 1 * Diagnostic Imaging MRI (Routine) - Closed Specialty Diagnoses / Procedures Referred By Qian mayers Referred To Contact Radiology. Diagnoses Chiari malformation type I (H) Numbness and tingling of upper extremity Procedures MR Cervical Spine w/o & w Contrast Ebony Cid APRN HOUSEHOLD COORDINATOR [address] [place] [address] Referral ID Status Reason Start Date Expiration Date Visits Re quested Visits Authorized [id number] Closed 01/05/2024 01/04/2025 1 1 Reason for Visit * Reason Comments Consult Neck Pain * Consultation (Routine: Next available opening) - Closed Specialty Diagnoses / Procedures Referred By Qian mayers Referred To Contact Diagnoses Tingling of both upper extremities Anthony Doe, [address] [address] [place] [address] Referral ID Status Reason Start Date Expiration Date Visits Re quested Visits Authorized [id number] Closed 11/16/2023 11/15/2024 1 1 Encounter Details Date Type Department Care Team (Late st Contact Info) Description 01/05/2024 1:40 PM CDT Office Visit [facility] [address] [place] [phone] Ebony Cid APRN HOUSEHOLD COORDINATOR [address] [place], [place] [id number] Abnormal finding on MRI of brain (Primary [...] How often do you attend chur or oriental orthodox services? 1 to 4 [...] 0 10/25/2023 [facility] [place] of Occupat ional Health - Occupational [...] exercise at this level? 30 min 03/10/2023 [place] Depression Scale Answer Date Recorded [place] Depression Score 5 01/14/2021 Last EPDS [...] Instructions * Patient Instructions* Ebony Cid APRN HOUSEHOLD COORDINATOR - 01/05/2024 1:40 PM CDT Imaging (brain and cspine MRI) has been ordered today. Radiology will call you to schedule. Please call below if you do not hear from them in the next couple of days. [facility] Radiology Scheduling: Please call [phone] to schedule your image(s) (select option #1). There are 3 different locations: [facility] [address] [place] [address] Imaging - [place] [address] [facility], [address] [facility] [address] [place] [id number] [place] [phone] ~You have been referred for Physical Therapy to [facility]. They will call youto schedule an appointment. Scheduling phone number is [phone] for [facility] or [place] location. If you have not heard from the scheduling office within 2 business days, please call [phone] for ALL other locations. Discussed the importance of core strengthening, ROM, stretching exercises and how each of these entities is important in decreasing pain and improving equipment operator intermodal yard spine health. The purpose of physical therapy is to teach you an individualized home exercise program. These exercises need to be performed every day in order to decrease pain and prevent future occurrences of pain. You have been previously referred to see the Neurology Department. Please call [phone]. to schedule your appointment ~Please call our [facility] Nurse Navigation line with any questions or concerns about your treatment plan, if symptoms worsen and you would like to be seen urgently, or if you have any new or worsening numbness, weakness, or problems controlling bladder and bowel function. 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 She has had [...] Surgeon: Galo Burrell MD; Location: HEART CARDIAC KNURLING MACHINE TENDER ESOPHAGOSCOPY, GASTROSCOPY, DUODENOSCOPY (EGD), COMBINED N/A [...] left 5/5 Biceps:right 5/5 left 5/5, Hand Dry Wall Installations Mechanic: right 5/5 left 5/5, Intrinsics: right 5/5 [...] leg raises RESULTS: Prior medical records from [facility] and [facility] Everywhere were reviewed today. IMAGING: Spine imaging [...] EXAM: MR CERVICAL SPINE W/O CONTRAST LOCATION: [facility] DATE/TIME: 11/12/2021 5:50 PM INDICATION: Left upper [...] foraminal stenosis. CHIDI SWEET MD SYSTEM ID: [id number] This note was dictated using voice recognition software. Any grammatical or context distortions areunintentional and inherent to the software. Ebony Cid DISTILLERY MILLER-C [facility]. [phone] documented in this encounter Plan of Treatment Upcoming Encounters Date Type Department Care Team (Late st Contact Info) Description 03/26/2024 11:20 AM CDT Office Visit [facility] [address] [facility] [address] [place] [address] Ebony Cid APRN HOUSEHOLD COORDINATOR [address] [place], [place] [address] 03/27/2024 11:00 AM CDT Office Visit [facility] [address] [facility] [address] [place] [phone] Jelena David, [address] [facility] [place] [address] 04/19/2024 2:45 PM CDT Office Visit [facility] [address] [place] [phone] Audrey Waite PA-C [address] [facility] [address], [facility] [address] [place] [address] 05/08/2024 1:30 PM CDT Office Visit [facility] [address] [place] [phone] Lauren Claudio PA-C [address] [place], [place] [phone] Esha Grimm PA-C [address] [place] [phone] 06/21/2024 2:00 PM REVIEW SCHEDULING COORDINATOR Office Visit [facility] [place] [address] [facility], [address] [place] [address] [place] [address] [place] [id number] Johnny Penn MD [address] [place] [phone] Scheduled Procedures Name Priority Associated Diagnoses Date/Ti pr ESOPHAGOGASTRODUODENOSCOPY Eosinophilic esophagitis Esophageal dysphagia Scheduled Referrals Name Type Priority Associated Diagnoses Orde r Schedule Physical Therapy Allergist/Pediatric Pulmonologist Referral Referral Priority: 1-2 Weeks Chiari malformation [...] BRAIN W/O and W CONTRAST LOCATION: [facility] DATE: 01/06/2024 INDICATION: numbness tingling both [...] BRAIN W/O and W CONTRAST LOCATION: [facility] DATE: 01/06/2024 INDICATION: numbness tingling both arms and chest, torso. Recheck [id number] and hx Chiari and right parietal abnormality, [...] at the right lateral aspect of the [id number] body. Ebony Cid APRN HOUSEHOLD COORDINATOR IMG MRI ORDERABLES * MR Cervical Spine [...] BRAIN W/O and W CONTRAST LOCATION: [facility] DATE: 01/06/2024 INDICATION: numbness tingling both [...] BRAIN W/O and W CONTRAST LOCATION: [facility] DATE: 01/06/2024 INDICATION: numbness tingling both arms and chest, torso. Recheck [id number] and hx Chiari and right parietal abnormality, [...] at the right lateral aspect of the [id number] body. Ebony Cid APRN HOUSEHOLD COORDINATOR IMG MRI ORDERABLES documented in this encounter [...] skull and head documented in this encounter Additional Health Concerns Assessment Noted Time PHQ-9 Depression Total Score: 4 06/20/20 23 8:40 AM REVIEW SCHEDULING COORDINATOR documented as of this encounter Care Teams Financial Institution President Relationship Specialty Start Date End Date Esha Grimm PA-C [address] [place] [phone] PCP - General Family Medicine 05/04/23 Diana Desir [facility] [address] [place] [address] Pharmacist Pharmacist 04/17/21 Rain Galaviz PA-C [address] [place] [address] [address] [place] [address] Physician Financial Aid Director Dermatology 04/28/21 Tavia Wyatt MD [address] [place] [address] [place] [address] Dermatology 07/14/21 Erica Farrell APRN HOUSEHOLD COORDINATOR [address] [place] [address]255 Nurse Practitioner Cardiovascular Disease 09/09/21 Rich Barrett MD [address] [place] [address] 699075 Physician Ophthalmology 01/21/22 Neil Kent MD [address] [place], [place] 857145 Dermatology 02/24/22 Diana Desir, [facility] [address] [place] [address] Assigned MTM Pharmacist 04/07/22 Livan Sharif MD [address] [place] [id number] Cardiovascular Disease 05/14/22 Catherine Cm MD [address] [place] [address] Cardiovascular Disease 07/21/22 Valery Veronica PA-C [address] [place] [address] Physician Financial Aid Director Dermatology 07/21/22 Brea Quinn APRN HOUSEHOLD COORDINATOR [address] [place], [place] 509015 Nurse Practitioner Dermatology 09/21/22 Brea Quinn APRN HOUSEHOLD COORDINATOR [address] [place], [place] 177722 Assigned Surgical Provider 10/09/22 [place] [address] [place] [address] Assigned Musculoskeletal Provider 10/09/22 Alfonso Renteria MD [address] [facility] [address] [place], [place] [phone] Assigned Neuroscience Provider 04/02/23 Radha Lomeli, A[place] HOUSEHOLD COORDINATOR [address] [facility] [address] [place] [address] Assigned Heart and Vascular Provider 05/28/23 Jelena David OD [address] [facility] [place] [address] Ophthalmology 06/15/23 Esha Grimm PA-C [address] [place] [address] Assigned PCP 07/16/23 Valery Veronica PA-C [address] [place] [address] Physician Financial Aid Director Dermatology 09/19/23 Rey Tay MD [address] [place] [address] MD Gastroenterology 09/20/23 Rocky Zepeda DO [address] [place] [address] Physician Gastroenterology 09/20/23 Philip Dumont MD [address] [place] [address] Physician Ophthalmology 09/22/23 Meredith Carrera PA-C [address] [place] [address] Assigned Gastroenterology Provider 11/01/23 Neil Kent MD [address] [place] [address] Dermatology 11/02/23 [place] [address] [place] [address] Neurological Surgery 12/26/23 documented as of this encounter
--- OUTSIDE RECORDS SUMMARY | 2024-03-12 19:34 | XMS_ITS | Encounter Summary ---
Author Organization [place] Address [address] [place] [address] Care Team Providers Care Can Doffer Name Role Phone Thang Diana [place] [facility] Unavailable [phone] Rain Galaviz PA-C Unavailable Tavia Wyatt MD Unavailable Unavailable Erica Farrell APRN MEDICATION RECONCILIATION TECHNICIAN Unavailable Rich Barrett MD Unavailable Neil Kent MD Unavailable Diana Desir Stanislav [facility] Unavailable [phone] Livan Sharif MD Unavailable Catherine Cm MD Unavailable + Valery Veronica PA-C Unavailable [phone] Brea Quinn CULINARY SPECIALIST MEDICATION RECONCILIATION TECHNICIAN Unavailable [phone] Brea Quinn CULINARY SPECIALIST MEDICATION RECONCILIATION TECHNICIAN Unavailable [phone] Jose Francisco Johnson MD Unavailable Alfonso Renteria MD Unavailable + [phone] Esha Grimm PA-C Primary Care Provider [phone] Radha Lomeli CULINARY SPECIALIST MEDICATION RECONCILIATION TECHNICIAN Unavailable [phone] Jelena David OD Unavailable Esha Grimm PA-C Unavailable [phone] Valery Veronica PA-C Unavailable [phone] Rey Tay MD Unavailable Rocky Zepeda DO Unavailable Philip Dumont MD Unavailable [phone] Meredith Carrera PA-C Unavailable [phone] Neil Kent MD Unavailable Juan Pablo Emmanuel MD Unavailable [phone] Audrey Waite PA-C Unavailable [phone] Encounter Details Date Type Department Care Team (Late st Contact Info) Description 11/21/2023 MyC Medical Advice [facility] [address] [phone] Sofia Alcantar Social History Tobacco Use Types [...] Answer Date Recorded PHQ-2 Score 0 10/[facility]/2023 [facility] [...] at this level? 30 min 03/10/2023 [place] Depression Scale Answer Date Recorded [place] Depression Score 5 01/14/2021 Last EPDS Self [...] Description 03/26/2024 11:20 AM CDT Office Visit [facility] Spine [facility] Neurosurgery [address] [facility] [address] [place] [address] Ebony Cid, CULINARY SPECIALIST [facility] [address] [place], [place] 4023[address] 03/27/2024 11:00 AM CDT Office Visit [facility] [place] [address] [facility] [address] [place] [phone] Jelena David, [address] [facility] [place] [address] 04/19/2024 2:45 PM CDT Office Visit [facility] [address] [place] [phone] Audrey Waite PA-C [address] [facility] [address], [facility] 6[address] [place] [address] 05/08/2024 1:30 PM CDT Office Visit [facility] [address] [place] [address] Lauren Claudio PA-C [address] [place] [address] Esha Grimm PA-C [address] [place] [address] 06/21/2024 2:00 PM PATENT EXAMINER Office Visit [facility] Neurology [address], [address] [place] [address] [place] [address] [place] [address] Johnny Penn MD [address] [place] [address] Scheduled Procedures Name Priority Associated Diagnoses Date/Ti mi ESOPHAGOGASTRODUODENOSCOPY Eosinophilic esophagitis Esophageal dysphagia documented as of this encounter Visit Diagnoses Not on filedocumented in this encounter Additional Health Concerns Infection Onset Date Last Indicated Resolved Time Rule Out COVID-19 12/26/2023 12/26/2023 12/26/2023 9:50 AM CDT Assessment Noted Time PHQ-9 Depression Total Score: 4 06/20/20 8:40 AM PATENT EXAMINER documented as of this encounter Care Teams Can Doffer Relationship Specialty Start Date End Date Esha Grimm PA-C [id number] [place] [phone] PCP - General Family Medicine 05/04/23 Diana Desir, [facility] [address] [place] [address] Pharmacist Pharmacist 04/17/21 Rain Galaviz PA-C [address] [place] [address] [address] [place] [address] Physician Home Economics Teacher Dermatology 04/28/21 Tavia Wyatt MD [address] [place] [address] [place] [address] Dermatology 07/14/21 Erica Farrell APRN MEDICATION RECONCILIATION TECHNICIAN [address] [place] [address]68[address] Nurse Practitioner Cardiovascular Disease 09/09/21 Rich Barrett MD [address] [place] [address] 273165 Physician Ophthalmology 01/21/22 Neil Kent MD [address] [place], [place] 494945 Dermatology 02/24/22 Diana Desir, [facility] [address] [place] [address] Assigned MTM Pharmacist 04/07/22 Livan Sharif MD [address] [place] [address] Cardiovascular Disease 05/14/22 Catherine Cm MD [address] [place] [address] Cardiovascular Disease 07/21/22 Valery Veronica PA-C 909 [place] [address] Physician Home Economics Teacher Dermatology 07/21/22 Brea Quinn APRN MEDICATION RECONCILIATION TECHNICIAN [address] [place], [place] 8[address] Nurse Practitioner Dermatology 09/21/22 Brea Quinn APRN MEDICATION RECONCILIATION TECHNICIAN [address] [place], [place] 735[address] Assigned Surgical Provider 10/09/22 [place] [address] [facility] [address] [place] [address] Assigned Musculoskeletal Provider 10/09/22 Alfonso Renteria MD [address] [facility] 200 [place], [place] [address] Assigned Neuroscience Provider 04/02/23 Radha Lomeli APRN MEDICATION RECONCILIATION TECHNICIAN [address] [facility] [address] [place] [address] Assigned Heart and Vascular Provider 05/28/23 Jelena David OD [address] [facility] [place] [address] Ophthalmology 06/15/23 Esha Grimm PA-C [address] [place] [address] Assigned PCP 07/16/23 Valery Veronica PA-C [address] [place] [address] Physician Home Economics Teacher Dermatology 09/19/23 Rey Tay MD [address] [place] [address] MD Gastroenterology 09/20/23 Rocky Zepeda DO [address] [place] [address] Physician Gastroenterology 09/20/23 Philip Dumont MD [address] [place] [address] Physician Ophthalmology 09/22/23 Meredith Carrera PA-C [address] [place] [address] Assigned Gastroenterology Provider 11/01/23 Neil Kent MD [address] [address] Dermatology 11/02/23 [place] [address] [address] Neurological Surgery 12/26/23 Audrey Waite PA-C [address] [place] [address] Physician Home Economics Teacher Dermatology 02/28/24 documented as of this encounter
--- OUTSIDE RECORDS SUMMARY | 2024-03-12 19:34 | XMS_ITS | Encounter Summary ---
Author Organization [place] Address [address] [place] [address] Care Team Providers Care Development Team Lead Name Role Phone Thang Diana [place] [facility] Unavailable [phone] Rain Galaviz PA-C Unavailable [phone] Tavia Wyatt MD Unavailable Unavailable Erica Farrell APRN HEALTH DIAGNOSTICS TEACHER Unavailable Rich Barrett MD Unavailable Neil Kent MD Unavailable Diana Desir Stanislav [facility] Unavailable [phone] Livan Sharif MD Unavailable Catherine Cm MD Unavailable + Valery Veronica PA-C Unavailable [phone] Brea Quinn COAL PULVERIZING OPERATOR HEALTH DIAGNOSTICS TEACHER Unavailable Brea Quinn COAL PULVERIZING OPERATOR HEALTH DIAGNOSTICS TEACHER Unavailable Jose Francisco Johnson MD Unavailable Alfonso Renteria MD Unavailable + [phone] Esha Grimm PA-C Primary Care Provider [phone] Radha Lomeli COAL PULVERIZING OPERATOR HEALTH DIAGNOSTICS TEACHER Unavailable [phone] FrankieJelena OD Unavailable Pao Joseph RN Unavailable Unavailable [facility] [place] PA-C Unavailable [phone] Valery Veronica PA-C Unavailable [phone] Rey Tay MD Unavailable Rocky Zepeda DO Unavailable Philip Dumont MD Unavailable [phone] Meredith Carrera PA-C Unavailable [phone] Neil Kent MD Unavailable Juan Pablo Emmanuel MD Unavailable [phone] Audrey Waite PA-C Unavailable [phone] Encounter Details Date Type Department Care Team (Late st Contact Info) Description 10/25/2023 MyC Medical Advice [facility] Gastro[facility]ology [facility] [address] [address] [place] Social History Tobacco Use [...] you attend chur ch or sikhism services? 1 to 4 times [...] Recorded PHQ-2 Score 0 10/25/2023 [facility] - Occupational [...] exercise at this level? 30 min 03/10/2023 Maxwell Depression Scale Answer Date Recorded Maxwell Depression Score 5 01/14/2021 Last EPDS Self [...] Description 03/26/2024 11:20 AM CDT Office Visit [facility] Spine and Neurosurgery 1747 [facility] 100 [place] [address] Ebony Cid, [facility] 500 [place] [address] 03/27/2024 11:00 AM CDT Office Visit [facility] Monserrat 3305 [facility] [address] [place] [phone] Jelena David, 3305 [facility] [place] [address] 04/19/2024 2:45 PM CDT Office Visit [facility] 830 [place] [phone] Audrey Waite PA-C 420 [facility] [address]385, [facility] 603 [place], [place] [address]67[address] 05/08/2024 1:30 PM CDT Office Visit [facility] [address] [place] [address] Lauren Claudio PA-C [address] [place] [address] Esha Grimm PA-C [id number] [place] [address] 06/21/2024 2:00 PM BEE BREEDER Office Visit [facility] Neurology [address], [address] [place] [address] [place] [address] [place] [address] Johnny Penn MD 6545 [place] [address] Scheduled Procedures Name Priority Associated Diagnoses Date/Ti in ESOPHAGOGASTRODUODENOSCOPY Eosinophilic esophagitis Esophageal dysphagia documented as of this encounter Visit Diagnoses Not on filedocumented in this encounter Additional Health Concerns Infection Onset Date Last Indicated Resolved Time Rule Out COVID-19 12/26/2023 12/26/2023 12/26/2023 9:50 AM CDT Assessment Noted Time PHQ-9 Depression Total Score: 4 06/20/20 23 8:40 AM BEE BREEDER documented as of this encounter Care Teams Development Team Lead Relationship Specialty Start Date End Date Esha Grimm PA-C [id number] [place] [address] PCP - General Family Medicine 05/04/23 Diana Desir, [facility] 3033 [place] [address] Pharmacist Pharmacist 04/17/21 Rain Galaviz PA-C [address] [place] [address] [address] [place] [address] Physician Paper Plate Machine Tender Dermatology 04/28/21 Tavia Wyatt MD [address] [place] [address] DR [facility] [place] [address] Dermatology 07/14/21 Erica Farrell APRN HEALTH DIAGNOSTICS TEACHER [address] [place] [address] Nurse Practitioner Cardiovascular Disease 09/09/21 Rich Barrett MD [address] [place] [address] 9[address] [place], [place] [address]115 Physician Ophthalmology 01/21/22 Neil Kent MD 500 [place], [place] 535015 Dermatology 02/24/22 [facility] 3033 [place] [address] Assigned MTM Pharmacist 04/07/22 Livan Sharif MD [address] [place] [id number] Cardiovascular Disease 05/14/22 Catherine Cm MD [address] [place] 376965 Cardiovascular Disease 07/21/22 Valery Veronica PA-C 909 [place], [place] 7[address] Physician Paper Plate Machine Tender Dermatology 07/21/22 Brea Quinn APRN HEALTH DIAGNOSTICS TEACHER 500 [place], [place] 358[address] Nurse Practitioner Dermatology 09/21/22 Brea Quinn APRN HEALTH DIAGNOSTICS TEACHER 6401 [place], [place] 334502 Assigned Surgical Provider 10/09/22 [place] [address] [address] [facility] 300 [place], [place] 781357 Assigned Musculoskeletal Provider 10/09/22 Alfonso Renteria MD [address] [facility] 200 [place] [address] Assigned Neuroscience Provider 04/02/23 Radha Lomeli APRN HEALTH DIAGNOSTICS TEACHER 6405 [facility] [address] [place], [place] 741925 Assigned Heart and Vascular Provider 05/28/23 Jelena David OD [address] [place] [address] Ophthalmology 06/15/23 Pao Joseph, VJ Personal Advocate & Liaison (PAL) Nurse 08/01/23 11/07/23 Esha Grimm PA-C [address] [place] [address] Assigned PCP 07/16/23 Valery Veronica PA-C 9 [place] [address] Physician Paper Plate Machine Tender Dermatology 09/19/23 eRy Tay MD [address] [place] [address] MD Gastroenterology 09/20/23 Rocky Zepeda DO [address] [place] [address] 384205 Physician Gastroenterology 09/20/23 Philip Dumont MD [address] [place] [address] Physician Ophthalmology 09/22/23 Meredith Carrera PA-C [address] [place] [address] Assigned Gastroenterology Provider 11/01/23 Neil Kent MD [address] [place] [address] Dermatology 11/02/23 [place] [address] [place], [place] 113697 Neurological Surgery 12/26/23 Audrey Waite PA-C 500 [place] [address] Physician Paper Plate Machine Tender Dermatology 02/28/24 documented as of this encounter
--- OUTSIDE RECORDS SUMMARY | 2024-03-12 19:34 | XMS_ITS | Encounter Summary ---
Author Organization [facility] Address [address] [place] [address] Care Team Providers Care Field Clerk Name Role Phone Thang Diana [place] [facility] Unavailable Rain Galaviz PA-C Unavailable Tavia Wyatt MD Unavailable Unavailable Erica Farrell APRN SUPERVISOR MIRROR FABRICATION Unavailable Rich Barrett MD Unavailable Neil Kent MD Unavailable Diana Desir Stanislav [facility] Unavailable [phone] Livan Sharif MD Unavailable Catherine Cm MD Unavailable + Valery Veronica PA-C Unavailable [phone] Brea Quinn SLACK COOPER SUPERVISOR MIRROR FABRICATION Unavailable [phone] Brea Quinn SLACK COOPER SUPERVISOR MIRROR FABRICATION Unavailable Jose Francisco [place] MD Unavailable Alfonso Renteria MD Unavailable + [phone] Esha Grimm PA-C Primary Care Provider Radha Lomeli SLACK COOPER SUPERVISOR MIRROR FABRICATION Unavailable [phone] Jelena David OD Unavailable Esha Grimm PA-C Unavailable [phone] Valery Veronica PA-C Unavailable [phone] Rey Tay MD Unavailable Rocky Zepeda DO Unavailable Philip Dumont MD Unavailable [phone] Meredith Carrera PA-C Unavailable [phone] Neil Kent MD Unavailable Juan Pablo Emmanuel MD Unavailable [phone] Audrey Waite PA-C Unavailable [phone] Encounter Details Date Type Department Care Team (Late st Contact Info) Description 11/21/2023 MyC Medical Advice [facility] Gastroenterology Clinic [address] [phone] Sofia Alcantar Social History Tobacco Use Types [...] Answer Date Recorded PHQ-2 Score 0 10/25/2023 [facility] - Occupational Stress [...] exercise at this level? 30 min 03/10/2023 Douglas Depression Scale Answer Date Recorded Douglas Depression Score 5 01/14/2021 Last EPDS Self [...] Description 03/26/2024 11:20 AM CDT Office Visit [facility] Spine and Neurosurgery 1747 [facility] 100 [place] [address] Ebony Cid, [facility] 500 [place], [place] [address]305 03/27/2024 11:00 AM CDT Office Visit [facility] Monserrat 3305 [facility] [address] [place] [phone] Jelena David, 3305 [facility] [place] [address] 04/19/2024 2:45 PM CDT Office Visit [facility] 830 [place] [address] Audrey Waite PA-C 420 [facility] [address]385, [facility] 603 [place] [address] 05/08/2024 1:30 PM CDT Office Visit [facility] [address] [place] [address] Lauren Claudio PA-C [address] [place] [address] Esha Grimm PA-C [address] [place] [address] 06/21/2024 2:00 PM CYBER TRANSPORT SYSTEMS SPECIALIST Office Visit [facility] Neurology [address], [address] [place] [address] [place] [address] [place] [address] Johnny Penn MD 6545 [place] [address] Scheduled Procedures Name Priority Associated Diagnoses Date/Ti vt ESOPHAGOGASTRODUODENOSCOPY Eosinophilic esophagitis Esophageal dysphagia documented as of this encounter Visit Diagnoses Not on filedocumented in this encounter Additional Health Concerns Infection Onset Date Last Indicated Resolved Time Rule Out COVID-19 12/26/2023 12/26/2023 12/26/2023 9:50 AM CDT Assessment Noted Time PHQ-9 Depression Total Score: 4 06/20/20 8:40 AM CYBER TRANSPORT SYSTEMS SPECIALIST documented as of this encounter Care Teams Field Clerk Relationship Specialty Start Date End Date Esha Grimm PA-C [id number] [place] [phone] PCP - General Family Medicine 05/04/23 Diana Desir, [facility] 3033 [place] [address] Pharmacist Pharmacist 04/17/21 Rain Galaviz PA-C [address] [place] [address] [address] [place] [address] Physician Care Program Director Dermatology 04/28/21 Tavia Wyatt MD [address] [place] [address] [place] [address] Dermatology 07/14/21 Erica Farrell APRN SUPERVISOR MIRROR FABRICATION [address] [place] 866105 Nurse Practitioner Cardiovascular Disease 09/09/21 Rich Barrett MD [address] [place] [address]8535 Physician Ophthalmology 01/21/22 Neil Kent MD 500 [place], [place] 895595 Dermatology 02/24/22 Diana Desir, [facility] 3033 [place] [address] Assigned MTM Pharmacist 04/07/22 Livan Sharif MD [address] [place] 573215 Cardiovascular Disease 05/14/22 Catherine Cm MD [address] [place] [address] Cardiovascular Disease 07/21/22 Valery Veronica PA-C 909 [place] [address] Physician Care Program Director Dermatology 07/21/22 Brea Quinn APRN SUPERVISOR MIRROR FABRICATION 500 [place], [place] 601745 Nurse Practitioner Dermatology 09/21/22 Brea Quinn APRN SUPERVISOR MIRROR FABRICATION 6401 [place], [place] 785732 Assigned Surgical Provider 10/09/22 [place] [address] [address] [facility] 300 [place] [address] Assigned Musculoskeletal Provider 10/09/22 Alfonso Renteria MD [address] [facility] 200 [place], [place] [address] Assigned Neuroscience Provider 04/02/23 Radha Lomeli APRN SUPERVISOR MIRROR FABRICATION 6405 [facility] [address] [place] [address] Assigned Heart and Vascular Provider 05/28/23 Jelena David OD [address] [facility] [place] [address] Ophthalmology 06/15/23 Esha Grimm PA-C [address] [place] [address] Assigned PCP 07/16/23 Valery Veronica PA-C [address] [place] [address] Physician Care Program Director Dermatology 09/19/23 Rey Tay MD [address] [place] [address] MD Gastroenterology 09/20/23 Rocky Zepeda DO [address] [place] [address] Physician Gastroenterology 09/20/23 Philip Dumont MD [address] [place] [address] Physician Ophthalmology 09/22/23 Meredith Carrera PA-C [address] [place] [address] Assigned Gastroenterology Provider 11/01/23 Neil Kent MD [address] [address] Dermatology 11/02/23 [place] [address] [address] Neurological Surgery 12/26/23 Audrey Waite PA-C [address] [place] [address] Physician Care Program Director Dermatology 02/28/24 documented as of this encounter
--- OUTSIDE RECORDS SUMMARY | 2024-03-12 19:34 | XMS_ITS | Encounter Summary ---
Author Organization [place] Address [address] [place] [address] Care Team Providers Care Secretary To The Vice President Name Role Phone Thang Diana [place] [facility] Unavailable [phone] Rain Galaviz PA-C Unavailable Tavia Wyatt MD Unavailable Unavailable Erica Farrell APRN BEE ROBBER Unavailable Rich Barrett MD Unavailable Neil Kent MD Unavailable Diana Desir Stanislav [facility] Unavailable [phone] Livan Sharif MD Unavailable Catherine Cm MD Unavailable + Valery Veronica PA-C Unavailable [phone] Brea Quinn WOOD BUCKER BEE ROBBER Unavailable [phone] Brea Quinn WOOD BUCKER BEE ROBBER Unavailable Jose Francisco [place] MD Unavailable Alfonso Renteria MD Unavailable + [phone] Esha Grimm PA-C Primary Care Provider [phone] Radha Lomeli WOOD BUCKER BEE ROBBER Unavailable [phone] FrankieJelena OD Unavailable Pao Joseph RN Unavailable Unavailable [facility] [place] PA-C Unavailable [phone] Valery Veronica PA-C Unavailable [phone] Rey Tay MD Unavailable Rocky Zepeda DO Unavailable Philip Dumont MD Unavailable [phone] Meredith Carrera PA-C Unavailable [phone] Neil Kent MD Unavailable Juan Pablo Emmanuel MD Unavailable [phone] Audrey Waite PA-C Unavailable [phone] Encounter Details Date Type Department Care Team (Late st Contact Info) Description 10/26/2023 MyC Medical Advice [facility] Gastroenterology Clinic [address] [address] [place] Social History Tobacco [...] Answer Date Recorded PHQ-2 Score 0 10/25/2023 [facility] - Occupational Stress Questionnaire Answer [...] exercise at this level? 30 min 03/10/2023 Rociada Depression Scale Answer Date Recorded Rociada Depression Score 5 01/14/2021 Last EPDS Self [...] Description 03/26/2024 11:20 AM CDT Office Visit [facility] Spine and Neurosurgery 1747 [facility] 100 [place] [address] Ebony Cid, [facility] 500 [place] [address] 03/27/2024 11:00 AM CDT Office Visit [facility] Monserrat [address] [facility] [address] [place] [phone] Jelena David, 3305 [facility] [place] [address] 04/19/2024 2:45 PM CDT Office Visit [facility] 830 [place] [address] Audrey Waite PA-C 420 [facility] [address], [facility] 603 [place], [place] [address] 05/08/2024 1:30 PM CDT Office Visit [facility] [address] [place] [address] Lauren Claudio PA-C [address] [place] [address] Esha Grimm PA-C [id number] [place] [address] 06/21/2024 2:00 PM SLURRY BLENDER Office Visit [facility] Neurology [address], [address] [place] [address] [place] [address] [place] [address] Johnny Penn MD 6545 [place] [address] Scheduled Procedures Name Priority Associated Diagnoses Date/Ti ct ESOPHAGOGASTRODUODENOSCOPY Eosinophilic esophagitis Esophageal dysphagia documented as of this encounter Visit Diagnoses Not on filedocumented in this encounter Additional Health Concerns Infection Onset Date Last Indicated Resolved Time Rule Out COVID-19 12/26/2023 12/26/2023 12/26/2023 9:50 AM CDT Assessment Noted Time PHQ-9 Depression Total Score: 4 06/20/20 23 8:40 AM SLURRY BLENDER documented as of this encounter Care Teams Secretary To The Vice President Relationship Specialty Start Date End Date Esha Grmim PA-C [id number] [place] [phone] PCP - General Family Medicine 05/04/23 Diana Desir, [facility] 3033 [place] [address] Pharmacist Pharmacist 04/17/21 Rain Galaviz PA-C [address] [place] [address] [address] [place] [address] Physician Hop Strainer Dermatology 04/28/21 Tavia Wyatt MD [address] [place] [address] DR [facility] [place] [address] Dermatology 07/14/21 Erica Farrell APRN BEE ROBBER [address] [place] [address] Nurse Practitioner Cardiovascular Disease 09/09/21 Rich Barrett MD [address] [place] [address] 9A [place], [place] 66[address] Physician Ophthalmology 01/21/22 Neil Kent MD 500 [place], [place] 725575 Dermatology 02/24/22 [facility] 3033 [place] [address] Assigned MTM Pharmacist 04/07/22 Livan Sharif MD [address] [place] [address] Cardiovascular Disease 05/14/22 Catherine Cm MD [address] [place] 757[address] Cardiovascular Disease 07/21/22 Valery Veronica PA-C [address] [place], [place] [address] Physician Hop Strainer Dermatology 07/21/22 Brea Quinn APRN BEE ROBBER 500 [place], [place] 887405 Nurse Practitioner Dermatology 09/21/22 Brea Quinn APRN BEE ROBBER 6401 [place], [place] 594652 Assigned Surgical Provider 10/09/22 [place] [address] [facility] 300 [place], [place] 525897 Assigned Musculoskeletal Provider 10/09/22 Alfonso Renteria MD [address] [facility] 200 [place] [address] Assigned Neuroscience Provider 04/02/23 Radha Lomeli APRN BEE ROBBER 6405 [facility] [address] [place], [place] 9470[address] Assigned Heart and Vascular Provider 05/28/23 Jelena David OD [address] [facility] [place] [address] Ophthalmology 06/15/23 Pao Joseph, VJ Personal Advocate & Liaison (PAL) Nurse 08/01/23 11/07/23 Esha Grimm PA-C [address] [place] [address] Assigned PCP 07/16/23 Valery Veronica PA-C 9 [place] [address] Physician Hop Strainer Dermatology 09/19/23 Rey Tay MD [address] [place] [address] MD Gastroenterology 09/20/23 Rocky Zepeda DO [address] [place] [address] 066735 Physician Gastroenterology 09/20/23 Philip Dumont MD [address] [place] [address] Physician Ophthalmology 09/22/23 Meredith Carrera PA-C [address] [place] [address] Assigned Gastroenterology Provider 11/01/23 Neil Kent MD [address] [place] [address] Dermatology 11/02/23 [place] [address] [place], [place] 128937 Neurological Surgery 12/26/23 Audrey Waite PA-C 500 [place] [address] Physician Hop Strainer Dermatology 02/28/24 documented as of this encounter
--- OUTSIDE RECORDS SUMMARY | 2024-03-12 19:34 | XMS_ITS | Encounter Summary ---
Author Organization [place] Address [address] [place] [address] Care Team Providers Care Court Recorder Name Role Phone Thang Diana [place] [facility] Unavailable Rain Galaviz PA-C Unavailable [phone] Tavia Wyatt MD Unavailable Unavailable Erica Farrell APRN FREELANCE DATA ENTRY Unavailable Rich Barrett MD Unavailable Neil Kent MD Unavailable Diana Desir Stanislav [facility] Unavailable [phone] Livan Sharif MD Unavailable Catherine Cm MD Unavailable + Valery Veronica PA-C Unavailable [phone] Brea Quinn MULTIMEDIA PRODUCTION ASSISTANT FREELANCE DATA ENTRY Unavailable [phone] Brea Quinn MULTIMEDIA PRODUCTION ASSISTANT FREELANCE DATA ENTRY Unavailable Jose Francisco Johnson MD Unavailable Alfonso Renteria MD Unavailable + [phone] Esha Grimm PA-C Primary Care Provider [phone] Radha Lomeli MULTIMEDIA PRODUCTION ASSISTANT FREELANCE DATA ENTRY Unavailable [phone] Jelena David OD Unavailable Esha Grimm PA-C Unavailable [phone] Valery Veronica PA-C Unavailable [phone] Rey Tay MD Unavailable Rocky Zepeda DO Unavailable Philip Dumont MD Unavailable [phone] Meredith Carrera PA-C Unavailable [phone] Neil Kent MD Unavailable Juan Pablo Emmanuel MD Unavailable [phone] Audrey Waite PA-C Unavailable [phone] Encounter Details Date Type Department Care Team (Late st Contact Info) Description 11/15/2023 MyC Medical Advice [address] [address] Vivian Grant Social History Tobacco [...] Recorded PHQ-2 Score 0 10/25/2023 [facility] - Occupational Stress Questionnaire Answer Date [...] exercise at this level? 30 min 03/10/2023 Brandt Depression Scale Answer Date Recorded Brandt Depression Score 5 01/14/2021 Last EPDS Self [...] Description 03/26/2024 11:20 AM CDT Office Visit [facility] Spine and Neurosurgery [address] [facility] 100 [place] [address] Ebony Cid, MULTIMEDIA PRODUCTION ASSISTANT FREELANCE DATA ENTRY 500 [place] [address] 03/27/2024 11:00 AM CDT Office Visit [facility] [place] [address] [facility] [address] [place] [phone] Jelena David, [address] [facility] [place] [address] 04/19/2024 2:45 PM CDT Office Visit [facility] 830 [place] [phone] Audrey Waite PA-C 420 [facility] [address], [facility] 603 [place] [address] 05/08/2024 1:30 PM CDT Office Visit [facility] [address] [place] [address] Lauren Claudio PA-C [address] [place] [address] Esha Grimm PA-C [id number] [place] [address] 06/21/2024 2:00 PM DOUBLER OPERATOR Office Visit [facility] Neurology [facility] [address] [place] [address], [address] [place] [address] [place] [address] [place] [address] Johnny Penn MD [address]45 [place] [address] Scheduled Procedures Name Priority Associated Diagnoses Date/Ti vt ESOPHAGOGASTRODUODENOSCOPY Eosinophilic esophagitis Esophageal dysphagia documented as of this encounter Visit Diagnoses Not on filedocumented in this encounter Additional Health Concerns Infection Onset Date Last Indicated Resolved Time Rule Out COVID-19 12/26/2023 12/26/2023 12/26/2023 9:50 AM CDT Assessment Noted Time PHQ-9 Depression Total Score: 4 06/20/20 8:40 AM DOUBLER OPERATOR documented as of this encounter Care Teams Court Recorder Relationship Specialty Start Date End Date Esha Grimm PA-C [id number] [place] [address] PCP - General Family Medicine 05/04/23 Diana Deisr, [facility] [address] [place] [address] Pharmacist Pharmacist 04/17/21 Rain Galaviz PA-C [address] [place] [address] [address] [place] [address] Physician Sound Effects Supervisor Dermatology 04/28/21 Tavia Wyatt MD [address] [place] [address] [place] [address] Dermatology 07/14/21 Erica Farrell APRN FREELANCE DATA ENTRY [address] [place] [address] Nurse Practitioner Cardiovascular Disease 09/09/21 Rich Barrett MD [address] [place] [address] Physician Ophthalmology 01/21/22 Neil Kent MD 500 [place], [place] 785295 Dermatology 02/24/22 Diana Desir, [facility] [address] [place] [address] Assigned MTM Pharmacist 04/07/22 Livan hSarif MD [address] [place] [address] [place] [id number] Cardiovascular Disease 05/14/22 Catherine Cm MD [address] [place] [address] [place] [address] Cardiovascular Disease 07/21/22 Valery Veronica PA-C 909 [place] [address] Physician Sound Effects Supervisor Dermatology 07/21/22 Brea Quinn APRN FREELANCE DATA ENTRY 500 [place], [place] 422965 Nurse Practitioner Dermatology 09/21/22 Brea Quinn APRN FREELANCE DATA ENTRY 6401 [place], [place] 643872 Assigned Surgical Provider 10/09/22 [place] [address] [place] [address] Assigned Musculoskeletal Provider 10/09/22 Alfonso Renteria MD [address] [facility] 200 [place], [place] [phone] Assigned Neuroscience Provider 04/02/23 Radha Lomeli, ARLENE FREELANCE DATA ENTRY [address] [facility] [address] [place] 424[address] Assigned Heart and Vascular Provider 05/28/23 Jelena David OD [address] [place] [address] Ophthalmology 06/15/23 Esha Grimm PA-C [address] [place] [address] Assigned PCP 07/16/23 Valery Veronica PA-C [address] [place] [address] Physician Sound Effects Supervisor Dermatology 09/19/23 Rey Tay MD [address] [place] [address] MD Gastroenterology 09/20/23 Rocky Zepeda DO [address] [place] [address] Physician Gastroenterology 09/20/23 Philip Dumont MD [address] [place] [address] Physician Ophthalmology 09/22/23 Meredith Carrera PA-C [address] [place] [address] Assigned Gastroenterology Provider 11/01/23 Neil Kent MD [address] [address] Dermatology 11/02/23 [place] [address] [place] [address] Neurological Surgery 12/26/23 Audrey Waite PA-C [address] [place] [address] Physician Sound Effects Supervisor Dermatology 02/28/24 documented as of this encounter
--- OUTSIDE RECORDS SUMMARY | 2024-03-12 19:34 | XMS_ITS | Encounter Summary ---
Author Organization [place] Address [address] [place] [address] Care Team Providers Care Non Profit Director Name Role Phone Thang Diana [place] [facility] Unavailable Rain Galaviz PA-C Unavailable Tavia Wyatt MD Unavailable Unavailable Erica Farrell APRN DEBONER Unavailable Rich Barrett MD Unavailable Neil Kent MD Unavailable Diana Desir Stanislav [facility] Unavailable [phone] Livan Sharif MD Unavailable Catherine Cm MD Unavailable + Valery Veronica PA-C Unavailable [phone] Brea Quinn DIRECTOR OF HEALTH EDUCATION DEBONER Unavailable Brea Quinn DIRECTOR OF HEALTH EDUCATION DEBONER Unavailable [phone] Jose Francisco Johnson MD Unavailable Alfonso Renteria MD Unavailable + [phone] Esha Grimm PA-C Primary Care Provider Radha Lomeli DIRECTOR OF HEALTH EDUCATION DEBONER Unavailable Jelena David OD Unavailable Esha Grimm PA-C Unavailable [phone] Valery Veronica PA-C Unavailable [phone] Rey Tay MD Unavailable Rocky Zepeda DO Unavailable Philip Dumont MD Unavailable Meredith Carrera PA-C Unavailable [phone] Neil Kent MD Unavailable Juan Pablo Emmanuel MD Unavailable Audrey Waite PA-C Unavailable Reason for Visit * Reason Onset Date Comments Appointment 12/02/2023 Clarification Encounter Details Date Type Department Care Team (Late st Contact Info) Description 12/02/2023 Telephone [facility] [address] [place] [address] Radha Lomeli APRN [facility] 6405 [facility] [address] [place] [address] Appointment (Clarification) Social History Tobacco Use [...] do you attend [facility] or [employer] [facility]? 1 to 4 times [...] Answer Date Recorded PHQ-2 Score 0 10/25/2023 [facility] Occupat ional Health - Occupational Stress [...] exercise at this level? 30 min 03/10/2023 Kent Depression Scale Answer Date Recorded Kent Depression Score 5 01/14/2021 Last EPDS Self [...] Questions pertaining to OV's scheduled. Carley ZABALA [facility] * Telephone Encounter - Janett Fragoso - 12/02/2023 8:56 AM CDT [facility] Call Center Phone Message [...] Visit [facility] [address]47 [facility] [address] [place] [phone] Ebony Cid APRN DEBONER 500 [place] [address] 03/27/2024 11:00 AM CDT Office Visit [facility] 3[address] [facility] [address] [place] [phone] Jelena David, [address] [facility] [place] [address] 04/19/2024 2:45 PM CDT Office Visit [address] [phone] Audrey Waite PA-C 420 [facility] [address], [facility] 603 [place], [place] [address] 05/08/2024 1:30 PM CDT Office Visit [facility] [address] [place] [phone] Lauren Claudio PA-C [address] [place], [place] [phone] Esha Grimm PA-C [address] [place] [address] 06/21/2024 2:00 PM PLAYGROUND SUPERVISOR Office Visit [facility] [place] 6545 [facility], [address] [place] [phone] [place] [address] [place] [address] Johnny Penn MD [address] [place] [address] Scheduled Procedures Name Priority Associated Diagnoses Date/Ti md ESOPHAGOGASTRODUODENOSCOPY Eosinophilic esophagitis Esophageal dysphagia documented as of this encounter Visit Diagnoses Not on filedocumented in this encounter Additional Health Concerns Infection Onset Date Last Indicated Resolved Time Rule Out COVID-19 12/26/2023 12/26/2023 12/26/2023 9:50 AM CDT Assessment Noted Time PHQ-9 Depression Total Score: 4 06/20/20 23 8:40 AM PLAYGROUND SUPERVISOR documented as of this encounter Care Teams Non Profit Director Relationship Specialty Start Date End Date Esha Grimm PA-C [address] [place] [phone] PCP - General Family Medicine 05/04/23 Diana Desir, [facility] [address] [place], [place] 15[address] Pharmacist Pharmacist 04/17/21 Rain Galaviz PA-C [address] [place] [address] [address] [place] [address] Physician Hotel Supplies Salesperson Dermatology 04/28/21 Tavia Wyatt MD [address] [place] [address] [address] [place] [address] Dermatology 07/14/21 Erica Farrell APRN DEBONER [address] [place] [address] Nurse Practitioner Cardiovascular Disease 09/09/21 Rich Barrett MD 516 [facility] [address] [place], [place] [address] Physician Ophthalmology 01/21/22 Neil Kent MD 500 [place], [place] 602625 Dermatology 02/24/22 [facility] 3033 [place], [place] 878726 Assigned [place] Pharmacist 04/07/22 Livan Sharif MD [address] [facility] [address] [place], [place] 2042[address] Cardiovascular Disease 05/14/22 Catherine Cm MD 6405 [facility] [address] [phone] Cardiovascular Disease 07/21/22 Valery Veronica, PA-C 909 [place], [place] 424545 Physician Hotel Supplies Salesperson Dermatology 07/21/22 Brea Quinn APRN DEBONER 500 [place] [address] Nurse Practitioner Dermatology 09/21/22 Brea Quinn APRN DEBONER 6401 [place], [place] 559622 Assigned Surgical Provider 10/09/22 [place] [address] [place] [address] Assigned Musculoskeletal Provider 10/09/22 Alfonso Renteria MD [address] [facility] 200 [place] [address] Assigned Neuroscience Provider 04/02/23 Radha Lomeli APRN DE[place]ER 6405 [facility] [address] [place] [address] Assigned Heart and Vascular Provider 05/28/23 Jelena David OD [address] [facility] [place] [address] MD Ophthalmology 06/15/23 Esha Grimm PA-C [address] [place] [address] Assigned PCP 07/16/23 Valery Veronica PA-C [address] [place] [address] Physician Hotel Supplies Salesperson Dermatology 09/19/23 Rey Tay MD [address] [place] [address] 827895 MD Gastroenterology 09/20/23 Rocky Zepeda DO [address] [place] [address] 539075 Physician Gastroenterology 09/20/23 Philip Dumont MD [address] [place] [address] 954485 Physician Ophthalmology 09/22/23 Meredith Carrera PA-C 909 [place], [place] 504035 Assigned Gastroenterology Provider 11/01/23 Neil Kent MD [address] 293840 Dermatology 11/02/23 [place] [address] 473467 Neurological Surgery 12/26/23 Audrey Waite PA-C 500 [place], [place] 586[address] Physician Hotel Supplies Salesperson Dermatology 02/28/24 documented as of this encounter
--- OUTSIDE RECORDS SUMMARY | 2024-03-12 19:34 | XMS_ITS | Encounter Summary ---
Author Organization [place] Address [address] [place] [address] Care Team Providers Care Gear Nicker Name Role Phone Thang Diana Mayers [facility] Unavailable [phone] Rain Galaviz PA-C Unavailable Tavia Wyatt MD Unavailable Unavailable Erica Farrell APRN INSIDE WIREMAN Unavailable Rich Barrett MD Unavailable Neil Kent MD Unavailable Diana Desir Stanislav [facility] Unavailable [phone] Livan Sharif MD Unavailable Catherine Cm MD Unavailable + Valery Veronica PA-C Unavailable [phone] Brea Quinn HEEL CURVER INSIDE WIREMAN Unavailable Brea Quinn HEEL CURVER INSIDE WIREMAN Unavailable Jose Francisco Johnson MD Unavailable Alfonso Renteria MD Unavailable + [phone] Esha Grimm PA-C Primary Care Provider Radha Lomeli HEEL CURVER INSIDE WIREMAN Unavailable [phone] Jelena David OD Unavailable Esha Grimm Adam PA-C Unavailable [phone] Valery Veronica PA-C Unavailable Rey Tay MD Unavailable Rocky Zepeda DO Unavailable Philip Dumont MD Unavailable Meredith Carrera PA-C Unavailable Neil Kent MD Unavailable Reason for Referral * Diagnostic Imaging XR (Routine) - Pending Review Specialty Diagnoses / Procedures Referred By Qian mayers Referred To Contact Radiology. Diagnoses Chest tightness SOB (shortness of breath) Procedures XR Chest 2 Views Helen Cortez APRN CNP [address] [place] [address] Referral ID Status Reason Start Date Expiration Date V isits Requested Visits Authorized [id number] Pending Review 12/21/2023 12/20/2024 1 1 Reason for Visit * Reason Comments Urgent Care Patient presents wit h chest tightness and shortness of breath for 2x days. Patient also c/o vaginal odor. Patient would like sti testing. Vaginal Problem Shortness of Breath Encounter Details Date Type Department Care Team (Late st Contact Info) Description 12/21/2023 12:40 PM CDT Office Visit [facility] [place] [address] [place] [address] Helen Cortez APRN INSIDE WIREMAN [address] [place] [address] [phone] Vaginal odor (Primary Dx); Chest tightness; SOB [...] you attend [employer] [facility] or latter day services? 1 to 4 [...] Score 0 10/25/2023 [facility] - Occupational Stress Questionnaire [...] exercise at this level? 30 min 03/10/2023 [place] Depression Scale Answer Date Recorded [place] Depression Score 5 01/14/2021 Last EPDS [...] documented in this encounter Progress Notes * Helen Cortez, ARLENE INSIDE WIREMAN - 12/21/2023 12:40 PM CDT URGENT CARE ASSESSMENT AND PLAN: ICD-10-CM 1. Vaginal odor N89.8 UA with Microscopic reflex to Culture - Clinic Collect Wet prep - Clinic Collect Chlamydia trachomatis/Neisseria gonorrhoeae by PCR - Clinic Collect UA Microscopic with Reflex to Culture Treponema Abs w Reflex to RPR and Titer Hepatitis C antibody HIV Antigen Antibody Combo [place] 2. Chest tightness R07.89 EKG 12-lead complete [...] ambulatory and in stable condition. Subjective Kim Johnson is a 23 year old who presents [...] Negative Ketones Urine Negative Negative mg/dL Specific [place] Urine 1.010 1.003 - 1.035 Blood Urine [...] Status --------- ------ CBC with platelets and d...[[id number]] Abnormal Final result Please view results for [...] Description 03/26/2024 11:20 AM CDT Office Visit [facility] Spine and Neurosurgery [address] [facility] [address] [place] [phone] Ebony Cid, HEEL CURVER INSIDE WIREMAN [address] [place], [place] [address] 03/27/2024 11:00 AM CDT Office Visit [facility] [address] [facility] [address] [place] [phone] Jelena David, [address] [facility] [place] [address] 04/19/2024 2:45 PM CDT Office Visit [facility] [address] [place] [phone] Audrey Waite PA-C [address] [facility] [address], [facility] [address] [place], [place] [address] 05/08/2024 1:30 PM CDT Office Visit [facility] [address] [place] [phone] Lauren Claudio PA-C [address] [place], [place] [phone] Esha Grimm PA-C [address] [place] [address] 06/21/2024 2:00 PM DOCTOR OF VETERINARY MEDICINE Office Visit [facility] Neurology Clinics - [place] [address] [facility], [address] [place] [phone] [place] [address] [place] [address] Johnny Penn MD [address] [place], [place] [address] Scheduled Procedures Name Priority Associated Diagnoses Date/Ti [...] CDT 12/21/2023 1:39 PM CDT Helen Cortez APRN INSIDE WIREMAN LAB - BLOOD ORDERABL ES LABORATORY [facility] [address] [facility] (no room number, 1st floor of clinic) [place] [address], [facility] [phone] * HIV Antigen Antibody Combo [place] (12/21/2023 1:39 PM CDT) [facility] HIV Antigen Antibody Combo Nonreactive Nonreactive 12/22/2023 [...] CDT 12/21/2023 1:39 PM CDT Helen Cortez APRN INSIDE WIREMAN LAB - BLOOD ORDERABL ES U LABORATORY [facility] [address] [facility], [address] [place] [address], [facility] * Hepatitis C antibody (12/21/2023 1:39 PM CDT) Pathologist [facility] Hepatitis C Antibody Nonreactive Nonreactive 12/22/2023 2:27 [...] CDT 12/21/2023 1:39 PM CDT Helen Cortez APRN [facility] LAB - BLOOD ORDERABL ES Performing Organization Address City/[facility]/ZIP Co de Phone Number LABORATORY [facility] Core Lab [address] [facility], [address] * Treponema Abs w Reflex to RPR and Titer (12/21/2023 1:39 PM CDT) Pathologist [facility] Treponema Antibody Total Nonreactive Nonreactive 12/21/2023 6:44 PM CDT SPECIALTY CORE/PROT/EN DO Blood BLOOD SPECIMEN / Unknown Venipuncture / Unknown 12/21/2023 1:39 PM CDT 12/21/2023 1:39 PM CDT Helen Cortez APRN [facility] LAB - BLOOD ORDERABL ES SPECIALTY CORE/PROT/ENDO Specialty Core/Prot/Endo [address] [facility], [address] * D dimer quantitative (12/21/2023 1:39 PM CDT) Pathologist [facility] D-Dimer Quantitative <0.27 0.00 - 0.50 ug/mL FEU 12/21/2023 2:51 PM CDT RH LABORATORY Blood BLOOD SPECIMEN / Unknown Venipuncture / Unknown 12/21/2023 1:39 PM CDT 12/21/2023 1:39 PM CDT [facility] RH LABORATORY - 12/21/2023 2:51 PM CDT This D-dimer assay is intended for use in conjunction with a clinical pretest probability assessment model to exclude pulmonary embolism (PE) and deep venous thrombosis (DVT) in outpatients suspected of PE or DVT. The cut-off value is 0.50 ug/mL FEU. Helen Cortez ARLENE INSIDE WIREMAN LAB - BLOOD ORDERABL ES RH LABORATORY [facility] Acute Care Lab [address] [facility] Lab (1st floor, no room number) [place] [address] * Comprehensive metabolic panel (12/21/2023 1:39 PM CDT) Sodium 138 135 - 145 mmol/L 12/21/2023 [...] CDT 12/21/2023 1:39 PM CDT Helen Cortez APRN INSIDE WIREMAN LAB - BLOOD ORDERABL ES RH LABORATORY [facility] Acute Care Lab [address] Lab (1st floor, no room number) [place] [address], [facility] * XR Chest 2 Views [...] is unremarkable. CHIDI SCHWARTZ MD Helen Cortez APRN, CNP IMG DIAGNOSTIC IMAGI NG ORDERABLES * UA Microscopic with Reflex to Culture (12/21/2023 12:44 PM CDT) Bacteria Urine None Seen None Seen /HPF REINA 12/21/2023 1:05 PM CDT LV LABORATORY RBC Urine None Seen 0-2 /HPF /HPF REINA 12/21/2023 1:05 PM CDT LV LABORATORY WBC Urine None Seen 0-5 /HPF /HPF REINA 12/21/2023 1:05 PM CDT LABORATORY Urine MID-STREAM URINE SPECIMEN / Unknown Non-blood Collection / Unknown 12/21/2023 12:44 PM CDT 12/21/2023 12:54 PM CDT Narrative LABORATORY - 12/21/2023 1:05 PM CDT Urine Culture not indicated Helen Cortez APRN, CNP LAB - URINE ORDERABL ES LABORATORY [facility] - [place] Lab [address] [facility] Lab (no room number, 1st floor of clinic) [place] [address], [facility] [phone] * Chlamydia trachomatis/Neisseria gonorrhoeae by PCR - Clinic Collect (12/21/2023 12:44 PM CDT) Chlamydia Trachomatis Negative Negative 12/22/2023 11:38 AM CDT [facility] IDD LABORATORY Comment: Negative for C. trachomatis rRNA by core machine operator mediated amplification. A negative result by core machine operator mediated amplification does not preclude the presence of infection because results are dependent on proper and adequate collection, absence of inhibitors and sufficient rRNA to be detected. Neisseria gonorrhoeae Negative Negative 12/22/2023 11:38 AM CDT [facility] LABORAT[facility] Comment:Negative for N. gono rrhoeae rRNA by core machine operator mediated amplification. A negative result by core machine operator mediated amplification does not preclude the presence of C. trachomatis infection because results are dependent on proper and adequate collection, absence of inhibitors and sufficient rRNA to be detected. Swab VAGINAL STRUCTURE / Unknown Non-blood Collection / Unknown 12/21/2023 12:44 PM CDT 12/21/2023 12:54 PM CDT Helen Cortez APRN INSIDE WIREMAN LAB - MICRO GENERAL ORDERABLES UU IDD LABORATORY [facility] Inf. Diseases Diag. Lab [address] [facility], [address] [place] [address], [facility] * (ABNORMAL) Wet prep - Clinic Collect [...] CDT 12/21/2023 12:54 PM CDT Helen Cortez APRN INSIDE WIREMAN LAB - MICRO GENERAL ORDERABLES LV LABORATORY [facility] [address] [facility] Lab (no room number, 1st floor of clinic) [place] [address], [facility] [phone] * UA with Microscopic reflex to Culture [...] 12/21/2023 12:58 PM CDT LV LABORATORY Specific [place] Urine 1.010 1.003 - 1.035 12/21/2023 12:58 [...] APRN, CNP LAB - URINE ORDERABL ES LABORATORY [facility] [place] Lab [address] [facility] Lab (no room number, 1st floor of clinic) [place] [address], [facility] [phone] * EKG 12-lead complete w/read - Clinics (12/21/2023) Helen Cortez APRN, CNP ECG ORDERABLES documented in this [...] Total Score: 4 06/20/20 23 8:40 AM DOCTOR OF VETERINARY MEDICINE documented as of this encounter Care Teams Gear Nicker Relationship Specialty Start Date End Date Esha Grimm PA-C [address] [place] [phone] PCP - General Family Medicine 05/04/23 Diana Desir, [facility] [address] [place] [address] Pharmacist Pharmacist 04/17/21 Rain Galaviz PA-C [address] [place] [address] [address] [place] [address] Physician Welder Dermatology 04/28/21 Tavia Wyatt MD [address] [place] [address] [address] [place] [address] Dermatology 07/14/21 Erica Farrell APRN INSIDE WIREMAN [address] [facility] [address] [place] [address] Nurse Practitioner Cardiovascular Disease 09/09/21 Rich Barrett MD [address] [facility] [address] [place], [place] 27[address] Physician Ophthalmology 01/21/22 Neil Kent MD 500 [place], [place] 445505 Dermatology 02/24/22 [facility] [address] [place] [address] Assigned MTM Pharmacist 04/07/22 Livan Sharif MD [address] [facility] [address] [facility] [address] [place] [address] Cardiovascular Disease 05/14/22 Catherine Cm MD [address] [facility] [address] [place], [place] 586485 Cardiovascular Disease 07/21/22 Valery Veroniac PAUcheC [address] [place], [place] 161915 Physician Welder Dermatology 07/21/22 Brea Quinn APRN INSIDE WIREMAN 500 [place], [place] 918035 Nurse Practitioner Dermatology 09/21/22 Brea Quinn APRN INSIDE WIREMAN [address] [place], [place] 202372 Assigned Surgical Provider 10/09/22 [place] [address] [address] [facility] 300 [place] [address] Assigned Musculoskeletal Provider 10/09/22 Alfonso Renteria MD [address] [facility] 200 [place] [address] Assigned Neuroscience Provider 04/02/23 Radha Lomeli APRN INSIDE WIREMAN [address] [place], [place] 9[address] Assigned Heart and Vascular Provider 05/28/23 Frankie Jelena GarciaSONJA [address] [facility] [place] [address] MD Ophthalmology 06/15/23 Esha Grimm PA-C [address] [place] [address] Assigned PCP 07/16/23 Valery Veronica PA-C [address] [place] [address] 693435 Physician Welder Dermatology 09/19/23 Rey Tay MD [address] [place] [address] Gastroenterology 09/20/23 Rocky Zepeda DO [address] [place] [address] 612035 Physician Gastroenterology 09/20/23 Philip Dumont MD [address] [place] [address] 678425 Physician Ophthalmology 09/22/23 Meredith Carrera PA-C [address] [place] [address] 254505 Assigned Gastroenterology Provider 11/01/23 Neil Kent MD [address] 0188[address] Dermatology 11/02/23 documented as of this encounter
--- OUTSIDE RECORDS SUMMARY | 2024-03-12 19:34 | XMS_ITS | Encounter Summary ---
Author Organization [place] Address [address] [place] [address] Care Team Providers Care Head Of It Name Role Phone Thang Diana [place] [facility] Unavailable Rain Galaviz PA-C Unavailable Tavia Wyatt MD Unavailable Unavailable Erica Farrell APRN BEHAVIORAL HEALTH CONSULTANT Unavailable Rich Barrett MD Unavailable Neil Kent MD Unavailable Diana Desir Stanislav [facility] Unavailable [phone] Livan Sharif MD Unavailable Catherine Cm MD Unavailable + Valery Veronica PA-C Unavailable [phone] Brea Quinn PHOTOSTAT OPERATOR BEHAVIORAL HEALTH CONSULTANT Unavailable Brea Quinn PHOTOSTAT OPERATOR BEHAVIORAL HEALTH CONSULTANT Unavailable Jose Francisco Johnson MD Unavailable Alfonso Renteria MD Unavailable + [phone] Esha Grimm PA-C Primary Care Provider Radha Lomeli PHOTOSTAT OPERATOR BEHAVIORAL HEALTH CONSULTANT Unavailable [phone] FrankieJelenae OD Unavailable Pao Joseph RN Unavailable Unavailable [facility] [place] PA-C Unavailable [phone] Valery Veronica PA-C Unavailable [phone] Rey Tay MD Unavailable Rocky Zepeda DO Unavailable Philip Dumont MD Unavailable [phone] Meredith Carrera PA-C Unavailable [phone] Neil Kent MD Unavailable Juan Pablo Emmanuel MD Unavailable [phone] Audrey Waite PA-C Unavailable [phone] Encounter Details Date Type Department Care Team (Late st Contact Info) Description 10/24/2023 MyC Medical Advice [facility] Gastroenterology Clinic [address] [address] Kenneth Denson Social History Tobacco Use [...] 0 10/25/2023 [facility] - Occupational Stress Questionnaire [...] [facility] Spine and Neurosurgery [address] [facility] 100 [place] [address] Ebony Cid, ARLENE [facility] 500 [place], [place] [address] 03/27/2024 11:00 AM CDT Office Visit [facility] [place] [address] [place] [phone] Jelena David, [address] [facility] [place] [address] 04/19/2024 2:45 PM CDT Office Visit [facility] 830 [place] [address] Audrey Waite PA-C [address] [facility] [address], [facility] 603 [place], [place] [address]375 05/08/2024 1:30 PM CDT Office Visit [facility] [address] [place] [address] Lauren Claudio PA-C [address] [place] [address] Esha Grimm PA-C [id number] [place] [address] 06/21/2024 2:00 PM WELDER FITTER Office Visit [facility] Neurology [address], [address] [place] [address] [place] [address] [place] [address] Johnny Penn MD [address]45 [place] [address] Scheduled Procedures Name Priority Associated Diagnoses Date/Ti ct ESOPHAGOGASTRODUODENOSCOPY Eosinophilic esophagitis Esophageal dysphagia documented as of this encounter Visit Diagnoses Not on filedocumented in this encounter Additional Health Concerns Infection Onset Date Last Indicated Resolved Time Rule Out COVID-19 12/26/2023 12/26/2023 12/26/2023 9:50 AM CDT Assessment Noted Time PHQ-9 Depression Total Score: 4 06/20/20 23 8:40 AM WELDER FITTER documented as of this encounter Care Teams Head Of It Relationship Specialty Start Date End Date Esha Grimm PA-C [id number] [place] [address] PCP - General Family Medicine 05/04/23 Diana Desir, [facility] 3033 [place] [address] Pharmacist Pharmacist 04/17/21 Rain Galaviz PA-C [address] [place] [address] [address] [place] [address] Physician Fabric Finisher Dermatology 04/28/21 Tavia Wyatt MD [address] [place] [address] DR [address] Lara [place] [facility] [address] Dermatology 07/14/21 Erica Farrell APRN BEHAVIORAL HEALTH CONSULTANT [address] [place] [address] Nurse Practitioner Cardiovascular Disease 09/09/21 Rich Barrett MD [address] [place] [address] [address] [place], [place] 564175 Physician Ophthalmology 01/21/22 Neil Kent MD 500 [place], [place] 285525 Dermatology 02/24/22 Diana Desir, [facility] 3033 [place] [address] Assigned MTM Pharmacist 04/07/22 Livan Sharif MD [address] [place] [phone] Cardiovascular Disease 05/14/22 Catherine Cm MD [address] [place] 320085 Cardiovascular Disease 07/21/22 Valery Veronica PA-C 909 [place], [place] 48[address]55 Physician Fabric Finisher Dermatology 07/21/22 Brea Quinn APRN BEHAVIORAL HEALTH CONSULTANT 500 [place], [place] [address] Nurse Practitioner Dermatology 09/21/22 Brea Quinn APRN BEHAVIORAL HEALTH CONSULTANT 6401 [place], [place] 825012 Assigned Surgical Provider 10/09/22 [place] [address] [facility] 300 [place], [place] 874967 Assigned Musculoskeletal Provider 10/09/22 Alfonso Renteria MD [address] [facility] 200 [place] [address] Assigned Neuroscience Provider 04/02/23 Radha Lomeli APRN BEHAVIORAL HEALTH CONSULTANT [address] [facility] [address] [place], [place] 9[address] Assigned Heart and Vascular Provider 05/28/23 Jelena David OD [address] [place] [address] Ophthalmology 06/15/23 Pao Joseph, VJ Personal Advocate & Liaison (PAL) Nurse 08/01/23 11/07/23 Esha Grimm PA-C [address] [place] [address] Assigned PCP 07/16/23 Valery Veronica PA-C 9 [place] [address] Physician Fabric Finisher Dermatology 09/19/23 Rey Tay MD [address] [place] [address] MD Gastroenterology 09/20/23 Rocky Zepeda DO [address] [place] [address] 645205 Physician Gastroenterology 09/20/23 Philip Dumont MD [address] [place] [address] 920585 Physician Ophthalmology 09/22/23 Meredith Carrera PA-C [address] [place] [address] 843105 Assigned Gastroenterology Provider 11/01/23 Neil Kent MD [address] [address] Dermatology 11/02/23 [place] [address] [place], [place] [address] Neurological Surgery 12/26/23 Audrey Waite PA-C [address] [place] [address]605 Physician Fabric Finisher Dermatology 02/28/24 documented as of this encounter
--- OUTSIDE RECORDS SUMMARY | 2024-03-12 19:34 | XMS_ITS | Encounter Summary ---
Author Organization [place] Address [address] [place] [address] Care Team Providers Care Mental Health Advanced Practice Nurse Name Role Phone Thang Diana [place] [facility] Unavailable [phone] Rain Galaviz PA-C Unavailable Tavia Wyatt MD Unavailable Unavailable Erica Farrell APRN MOVERS Unavailable Rich Barrett MD Unavailable Neil Kent MD Unavailable Diana Desir Stanislav [facility] Unavailable [phone] Livan Sharif MD Unavailable Catherine Cm MD Unavailable + Valery Veronica PA-C Unavailable [phone] Brea Quinn CANDLE MOLDER MOVERS Unavailable Brea Quinn CANDLE MOLDER MOVERS Unavailable Jose Francisco Johnson MD Unavailable Alfonso Renteria MD Unavailable + [phone] Esha Grimm PA-C Primary Care Provider Radha Lomeli CANDLE MOLDER MOVERS Unavailable [phone] FrankieJelena OD Unavailable Pao Joseph RN Unavailable Unavailable [place] PA-C Unavailable [phone] Valery Veronica PA-C Unavailable Rey Tay MD Unavailable Rocky Zepeda DO Unavailable Philip Dumont MD Unavailable [phone] Meredith Carrera PA-C Unavailable Neil Kent MD Unavailable Juan Pablo Emmanuel MD Unavailable [phone] Audrey Waite PA-C Unavailable [phone] Encounter Details Date Type Department Care Team (Late st Contact Info) Description 10/25/2023 MyC Medical Advice [facility] [address] [address] [place], RD 909 [place] [address] Social History Tobacco Use Types [...] Score 0 10/25/2023 [facility] - Occupational Stress [...] exercise at this level? 30 min 03/10/2023 [place] Depression Scale Answer Date Recorded [place] [...] Description 03/26/2024 11:20 AM CDT Office Visit [facility] Spine and Neurosurgery 1747 [facility] 100 [place] [address] Ebony Cid, CANDLE MOLDER MOVERS 500 [place] [address] 03/27/2024 11:00 AM CDT Office Visit [facility] [place]at 3305 [facility] [address] [place] [phone] Jelena David, OD 3305 [facility] [place] [address] 04/19/2024 2:45 PM CDT Office Visit [facility] 830 [place] [phone] Audrey Waite PA-C 420 [facility] [address], [facility] 603 [place] [address] 05/08/2024 1:30 PM CDT Office Visit [facility] [address] [place] [address] Lauren Claudio PA-C [address] [place] [address] Esha Grimm PA-C [address] [place] [address] 06/21/2024 2:00 PM MEDIA CONSULTANT OUTSIDE SALES Office Visit [facility] Neurology [address], [address] [place] [address] [place] [address] [place] [address] Johnny ePnn MD 6565 [place] [address] Scheduled Procedures Name Priority Associated Diagnoses Date/Ti wa ESOPHAGOGASTRODUODENOSCOPY Eosinophilic esophagitis Esophageal dysphagia documented as of this encounter Visit Diagnoses Not on filedocumented in this encounter Additional Health Concerns Infection Onset Date Last Indicated Resolved Time Rule Out COVID-19 12/26/2023 12/26/2023 12/26/2023 9:50 AM CDT Assessment Noted Time PHQ-9 Depression Total Score: 4 06/20/20 23 8:40 AM MEDIA CONSULTANT OUTSIDE SALES documented as of this encounter Care Teams Mental Health Advanced Practice Nurse Relationship Specialty Start Date End Date Esha Grimm PA-C [id number] [place] [address] PCP - General Family Medicine 05/04/23 Diana Desir, [facility] [address] [place] [address] Pharmacist Pharmacist 04/17/21 Rain Galaviz PA-C [address] [place] [address] [address] [place] [address] Physician Tipple Repairer Dermatology 04/28/21 Tavia Wyatt MD [address] [place] [address] [place] [address] Dermatology 07/14/21 Erica Farrell APRN MOVERS [address] [place] 438[address] Nurse Practitioner Cardiovascular Disease 09/09/21 Rich Barrett MD 516 [facility], [facility] 9A [place], [place] 386695 Physician Ophthalmology 01/21/22 Neil Kent MD 500 [place], [place] 047825 Dermatology 02/24/22 Diana Desir, [facility] [address] [place] [address] Assigned MTM Pharmacist 04/07/22 Livan Sharif MD [address] [place] [address] Cardiovascular Disease 05/14/22 Catherine Cm MD 6405 [facility] S [facility] [address] [place] [address] Cardiovascular Disease 07/21/22 Valery Veronica, PAUcheC 909 [place] [address] Physician Tipple Repairer Dermatology 07/21/22 Brea Quinn APRN MOVERS 500 [place] [address] Nurse Practitioner Dermatology 09/21/22 Brea Quinn APRN MOVERS 6401 [place] [address] Assigned Surgical Provider 10/09/22 [place] [address] [place] [address] Assigned Musculoskeletal Provider 10/09/22 Alfonso Renteria MD 5775 [facility] 200 [place], [place] 490846 Assigned Neuroscience Provider 04/02/23 Radha Lomeli APRN MOVERS 6405 [facility] [address] [place] [address] Assigned Heart and Vascular Provider 05/28/23 Jelena David OD 3305 [facility] [place] [address] Ophthalmology 06/15/23 Pao Joseph, VJ Personal Advocate & Liaison (PAL) Nurse 08/01/23 11/07/23 Esha Grimm PA-C [address] [place] [address] Assigned PCP 07/16/23 Valery Veronica PA-C [address] [place] [address] 524805 Physician Tipple Repairer Dermatology 09/19/23 Rey Tay MD [address] [place] [address] 001785 MD Gastroenterology 09/20/23 Rocky Zepeda DO [address] [place] [address] 943585 Physician Gastroenterology 09/20/23 Philip Dumont MD [address] [place] [address] 225375 Physician Ophthalmology 09/22/23 Meredith Carrera PA-C [address] [place] [address] Assigned Gastroenterology Provider 11/01/23 Neil Kent MD [address] [address] Dermatology 11/02/23 [place] [address] [place] [address] Neurological Surgery 12/26/23 Audrey Waite PA-C 500 [place] [address] Physician Tipple Repairer Dermatology 02/28/24 documented as of this encounter
--- OUTSIDE RECORDS SUMMARY | 2024-03-12 19:34 | XMS_ITS | Encounter Summary ---
Author Organization [place] Address [address] [place] [address] Care Team Providers Care Executive Search Consultant Name Role Phone Thang Diana [place] [facility] Unavailable Rain Galaviz PA-C Unavailable Tavia Wyatt MD Unavailable Unavailable Erica Farrell APRN FRENCH TEACHER Unavailable Rich Barrett MD Unavailable Neil Kent MD Unavailable Diana Desir Stanislav [facility] Unavailable [phone] Livan Sharif MD Unavailable Catherine Cm MD Unavailable + Valery Veronica PA-C Unavailable [phone] Brea Quinn PROMOTIONS FIRM ACCOUNTS MANAGER FRENCH TEACHER Unavailable Brea Quinn PROMOTIONS FIRM ACCOUNTS MANAGER FRENCH TEACHER Unavailable [phone] Jose Francisco Johnson MD Unavailable Alfonso Renteria MD Unavailable + [phone] Esah Grimm PA-C Primary Care Provider Radha Lomeli PROMOTIONS FIRM ACCOUNTS MANAGER FRENCH TEACHER Unavailable [phone] Jelena David OD Unavailable Esha Grimm PA-C Unavailable [phone] Valery Veronica PA-C Unavailable [phone] Rey Tay MD Unavailable Rocky Zepeda DO Unavailable Philip Dumont MD Unavailable [phone] Meredith Carrera PA-C Unavailable [phone] Neil Kent MD Unavailable Juan Pablo Emmanuel MD Unavailable [phone] Audrey Waite PA-C Unavailable [phone] Encounter Details Date Type Department Care Team (Late st Contact Info) Description 11/16/2023 MyC Medical Advice [address] [address] Asiya Reddy, RN Social History [...] Answer Date Recorded PHQ-2 Score 0 10/25/2023 [facility] - Occupational Stress Questionnaire [...] exercise at this level? 30 min 03/10/2023 [place] Depression Scale Answer Date Recorded [place] Depression Score 5 01/14/2021 Last EPDS Self [...] Visit [facility] Spine and Neurosurgery 1747 [facility] 100 [place] [address] Ebony Cid, PROMOTIONS FIRM ACCOUNTS MANAGER [facility] 500 [place], [place] 149905 03/27/2024 11:00 AM CDT Office Visit [facility] Monserrat 3305 [facility] [address] [place] [phone] Jelena David, 3305 [facility] [place] [address] 04/19/2024 2:45 PM CDT Office Visit [facility] 830 [place] [phone] Audrey Waite PA-C 420 [facility] [address], [facility] 603 [place] [address] 05/08/2024 1:30 PM CDT Office Visit [facility] 17223 [place] [address] Lauren Claudio PA-C [address] [place] [address] Esha Grimm PA-C [id number] [place] [address] 06/21/2024 2:00 PM MECHANICAL PROCESS ENGINEER Office Visit [facility] Neurology [address], [address] [place] [address] [place] [address] [place] [address] Johnny Penn MD 6545 [place] [address] Scheduled Procedures Name Priority Associated Diagnoses Date/Ti me ESOPHAGOGASTRODUODENOSCOPY Eosinophilic esophagitis Esophageal dysphagia documented as of this encounter Visit Diagnoses Not on filedocumented in this encounter Additional Health Concerns Infection Onset Date Last Indicated Resolved Time Rule Out COVID-19 12/26/2023 12/26/2023 12/26/2023 9:50 AM CDT Assessment Noted Time PHQ-9 Depression Total Score: 4 06/20/20 23 8:40 AM MECHANICAL PROCESS ENGINEER documented as of this encounter Care Teams Executive Search Consultant Relationship Specialty Start Date End Date Esha Grimm PA-C [id number] [place] [address] PCP - General Family Medicine 05/04/23 Diana Desir, [facility] 3033 [place] [address] Pharmacist Pharmacist 04/17/21 Rain Galaviz PA-C [address] [place] [address] [address] [place] [address] Physician Cancer Spec Dermatology 04/28/21 Tavia Wyatt MD [address] [place] [address] [place] [address] Dermatology 07/14/21 Erica Farrell APRN FRENCH TEACHER [address] [place] 584025 Nurse Practitioner Cardiovascular Disease 09/09/21 Rich Barrett MD [address] [place] [address] 086455 Physician Ophthalmology 01/21/22 Neil Kent MD 500 [place], [place] 929025 Dermatology 02/24/22 Diana Desir, [facility] 3033 [place] [address] Assigned MTM Pharmacist 04/07/22 Livan Sharif MD [address] [place] 828335 Cardiovascular Disease 05/14/22 Catherine Cm MD [address] [place] 272065 Cardiovascular Disease 07/21/22 Valery Veronica PA-C 909 [place] [address] Physician Cancer Spec Dermatology 07/21/22 Brea Quinn APRN FRENCH TEACHER 500 [place], [place] 253505 Nurse Practitioner Dermatology 09/21/22 Brea Quinn APRN FRENCH TEACHER 6401 [place], [place] 417592 Assigned Surgical Provider 10/09/22 [place] [address] [address] [facility] 300 [place] [address] Assigned Musculoskeletal Provider 10/09/22 Alfonso Renteria MD [address] [facility] 200 [place], [place] [address] Assigned Neuroscience Provider 04/02/23 Radha Lomeli APRN FRENCH TEACHER 6405 [facility] [address] [place] [address] Assigned Heart and Vascular Provider 05/28/23 Jelena David OD [address] [facility] [place] [address] Ophthalmology 06/15/23 Esha Grimm PA-C [address] [place] [address]83 Assigned PCP 07/16/23 Valery Veronica PA-C [address] [place] [address] Physician Cancer Spec Dermatology 09/19/23 Rey Tay MD [address] [place] [address] MD Gastroenterology 09/20/23 Rocky Zepeda DO [address] [place] [address] Physician Gastroenterology 09/20/23 Philip Dumont MD [address] [place] [address] Physician Ophthalmology 09/22/23 Meredith Carrera PA-C [address] [place] [address] Assigned Gastroenterology Provider 11/01/23 Neil Kent MD [address] [address] Dermatology 11/02/23 [place] [address] [address] Neurological Surgery 12/26/23 Audrey Waite PA-C [address] [place] [address] Physician Cancer Spec Dermatology 02/28/24 documented as of this encounter
--- OUTSIDE RECORDS SUMMARY | 2024-03-12 19:35 | XMS_ITS | Encounter Summary ---
Author Organization [place] Address [address] [place] [address] Care Team Providers Care Order Builder Loader Name Role Phone Thang Diana [place] [facility] Unavailable Rain Galaviz PA-C Unavailable Tavia Wyatt MD Unavailable Unavailable Erica Farrell APRN WINDOWS SOFTWARE DEVELOPER Unavailable Rich Barrett MD Unavailable Neil Kent MD Unavailable Diana Desir Stanislav [facility] Unavailable [phone] Livan Sharif MD Unavailable Catherine Cm MD Unavailable + Valery Veronica PA-C Unavailable [phone] Brea Quinn CHANNEL MARKETING MANAGER WINDOWS SOFTWARE DEVELOPER Unavailable Brea Quinn CHANNEL MARKETING MANAGER WINDOWS SOFTWARE DEVELOPER Unavailable Jose Francisco Johnson MD Unavailable Alfonso Renteria MD Unavailable + [phone] Esha Grimm PA-C Primary Care Provider [phone] Radha Lomeli CHANNEL MARKETING MANAGER WINDOWS SOFTWARE DEVELOPER Unavailable [phone] FrankieJelena OD Unavailable Pao Joseph RN Unavailable Unavailable Jesus Grimmyllincoln Medina PA-C Unavailable [phone] Valery Veronica PA-C Unavailable Rey Tay MD Unavailable Rocky Zepeda DO Unavailable Philip Dumont MD Unavailable [phone] Meredith Carrera PA-C Unavailable Neil Kent MD Unavailable Juan Pablo Emmanuel MD Unavailable [phone] Audrey Waite PA-C Unavailable [phone] Encounter Details Date Type Department Care Team (Late st Contact Info) Description 08/25/2023 MyC Medical Advice [address] [address] [facility] [address] [place] [address] Social History Tobacco Use Types Packs/Day Years [...] Answer Date Recorded PHQ-2 Score 0 06/20/2023 [facility] Occupat ional Health [...] exercise at this level? 30 min 03/10/2023 [place] Depression Scale Answer Date Recorded [place] Depression Score 5 01/14/2021 Last EPDS Self [...] Description 03/26/2024 11:20 AM CDT Office Visit [facility] Spine and Neurosurgery 1747 [facility] 100 [place] [address] Ebony Cid, [facility] 500 [place], [place] 208655 03/27/2024 11:00 AM CDT Office Visit [facility] Monserrat [address] [facility] [address] [place] [phone] Jelena David, 3305 [facility] [place] [address] 04/19/2024 2:45 PM CDT Office Visit [facility] [address] [place] [phone] Audrey Waite PA-C 420 [facility] [address], [facility] 603 [place] [address] 05/08/2024 1:30 PM CDT Office Visit [facility] [address] [place] [address] Lauren Claudio PA-C [address] [place] [address] Esha Grimm PA-C [address] [place] [address] 06/21/2024 2:00 PM SINGING TEACHER Office Visit [facility] Neurology [facility] [address], [address] [place] [address] [place] [address] [address] Johnny Penn MD 6545 [place], [place] [phone] Scheduled Procedures Name Priority Associated Diagnoses Date/Ti va ESOPHAGOGASTRODUODENOSCOPY Eosinophilic esophagitis Esophageal dysphagia documented as of this encounter Visit Diagnoses Not on filedocumented in this encounter Additional Health Concerns Infection Onset Date Last Indicated Resolved Time Rule Out COVID-19 12/26/2023 12/26/2023 12/26/2023 9:50 AM CDT Assessment Noted Time PHQ-9 Depression Total Score: 4 06/20/20 23 8:40 AM SINGING TEACHER documented as of this encounter Care Teams Order Builder Loader Relationship Specialty Start Date End Date Esha Grimm PA-C [id number] [place] [address] PCP - General Family Medicine 05/04/23 Diana Desir, [facility] [address] [place] [address] Pharmacist Pharmacist 04/17/21 Rain Galaviz PA-C [address] [place] [address] [address] [place] [address] Physician Home Attendant Dermatology 04/28/21 Tavia Wyatt MD [address] [place] [address] [address] [place] [address] Dermatology 07/14/21 Erica Farrell APRN WINDOWS SOFTWARE DEVELOPER [address] [place] [id number] Nurse Practitioner Cardiovascular Disease 09/09/21 Rich Barrett MD [address] [address] Physician Ophthalmology 01/21/22 Neil Kent MD 500 [place], [place] 599265 Dermatology 02/24/22 Diana Desir, [facility] [address] [place] [address] Assigned MTM Pharmacist 04/07/22 Livan Sharif MD [address] [place] [id number] Cardiovascular Disease 05/14/22 Catherine Cm MD 6405 [facility] [address] [place] [address] Cardiovascular Disease 07/21/22 Valery Veronica, PAUcheC 909 [place] [address] Physician Home Attendant Dermatology 07/21/22 Brea Quinn APRN WINDOWS SOFTWARE DEVELOPER 500 [place] [address] Nurse Practitioner Dermatology 09/21/22 Brea Quinn APRN WINDOWS SOFTWARE DEVELOPER 6401 [facility] [address] Assigned Surgical Provider 10/09/22 [place] [address] [address] [facility] 300 [place] [address] Assigned Musculoskeletal Provider 10/09/22 Alfonso Renteria MD 5775 [facility] 200 [place] [address] Assigned Neuroscience Provider 04/02/23 Radha Lomeli APRN WINDOWS SOFTWARE DEVELOPER 6405 [facility] [address] [place] [address] Assigned Heart and Vascular Provider 05/28/23 Jelena David OD [address] [facility] [place] [address] Ophthalmology 06/15/23 Pao Joseph, RN Personal Advocate & Liaison (PAL) Nurse 08/01/23 11/07/23 Esha Grimm PA-C [address] [place] [address] Assigned PCP 07/16/23 Valery Veronica PA-C [address] [place] [address] 911335 Physician Home Attendant Dermatology 09/19/23 Rey Tay MD [address] [place] [address] 057605 MD Gastroenterology 09/20/23 Rocky Zepeda DO [address] [place] [address] 625615 Physician Gastroenterology 09/20/23 Philip Dumont MD [address] [place] [address] 532825 Physician Ophthalmology 09/22/23 Meredith Carrera PA-C [address] [place] [address] Assigned Gastroenterology Provider 11/01/23 Neil Kent MD [address] [address] Dermatology 11/02/23 [place] [address] [place] [address] Neurological Surgery 12/26/23 Audrey Waite PA-C [address] [place] [address] Physician Home Attendant Dermatology 02/28/24 documented as of this encounter
--- OUTSIDE RECORDS SUMMARY | 2024-03-12 19:35 | XMS_ITS | Encounter Summary ---
Author Organization [facility] Address [address] [place] [address] Care Team Providers Care Slide Forming Machine Tender Name Role Phone Thang Diana [place] [facility] Unavailable [phone] Rain Galaviz PA-C Unavailable Tavia Wyatt MD Unavailable Unavailable Erica Farrell APRN MICRO COMPUTER DATA PROCESSOR Unavailable Rich Barrett MD Unavailable Neil Kent MD Unavailable Diana Desir Stanislav [facility] Unavailable [phone] Livan Sharif MD Unavailable Catherine Cm MD Unavailable + Valery Veronica PA-C Unavailable [phone] Brea Quinn COSTUME SEAMSTRESS MICRO COMPUTER DATA PROCESSOR Unavailable Brea Quinn COSTUME SEAMSTRESS MICRO COMPUTER DATA PROCESSOR Unavailable Jose Francisco Johnson MD Unavailable Alfonso Renteria MD Unavailable + [phone] Esha Grimm PA-C Primary Care Provider Radha Lomeli COSTUME SEAMSTRESS MICRO COMPUTER DATA PROCESSOR Unavailable [phone] Jelena David OD Unavailable [phone] Pao Joseph RN Unavailable Unavailable Esha GrimmC Unavailable [phone] Valery Veronica PA-C Unavailable [phone] Rey Tay MD Unavailable Rocky Zepeda DO Unavailable Philip Dumont MD Unavailable [phone] Meredith Carrera PA-C Unavailable [phone] Neil Kent MD Unavailable Juan Pablo Emmanuel MD Unavailable [phone] Audrey Waite PA-C Unavailable [phone] Encounter Details Date Type Department Care Team (Late st Contact Info) Description 08/10/2023 MyC Medical Advice [address] [address] Esha Grimm PA-C [id number] [place] [address] Social History Tobacco Use Types Packs/Day [...] Date Recorded PHQ-2 Score 0 06/20/2023 [facility] - Occupational Stress [...] exercise at this level? 30 min 03/10/2023 Alanson Depression Scale Answer Date Recorded Alanson Depression Score 5 01/14/2021 Last EPDS Self [...] Asiya Reddy RN - 08/10/2023 11:40 AM DRY CHAIN PULLER Esha- see [employer] message below. Patient did call to see if E-Visit would be addressed today. No immediate concern at this time. Advised UC if needed sooner. Asiya eRddy RN CHAIN PULLER documented in this encounter Plan of Treatment Upcoming Encounters Date Type Department Care Team (Late st Contact Info) Description 03/26/2024 11:20 AM CDT Office Visit [facility] Spine and Neurosurgery [address] [place] [address] Ebony Cid, [facility] 500 [place] [address] 03/27/2024 11:00 AM CDT Office Visit [address] [place] [phone] Frankie Jelena Garcia, OD 3305 [facility] [place] [address] 04/19/2024 2:45 PM CDT Office Visit [facility] 830 [place] [phone] Audrey Waite PA-C 420 [facility] B385, [facility] 603 [place], [place] [address]055 05/08/2024 1:30 PM CDT Office Visit [facility] [address] [place] [phone] Lauren Claudio PA-C [address] [place], [place] [phone] Esha Grimm PA-C [address] [place] [address] 06/21/2024 2:00 PM DRY CHAIN PULLER Office Visit [facility] Neurology [facility] - [address], [address] [place] [phone] [place] [address] [place] [id number] Johnny Penn MD 6545 [place] [address] Scheduled Procedures Name Priority Associated Diagnoses Date/Ti me ESOPHAGOGASTRODUODENOSCOPY Eosinophilic esophagitis Esophageal dysphagia documented as of this encounter Visit Diagnoses Not on filedocumented in this encounter Additional Health Concerns Infection Onset Date Last Indicated Resolved Time Rule Out COVID-19 12/26/2023 12/26/2023 12/26/2023 9:50 AM CDT Assessment Noted Time PHQ-9 Depression Total Score: 4 06/20/20 23 8:40 AM DRY CHAIN PULLER documented as of this encounter Care Teams Slide Forming Machine Tender Relationship Specialty Start Date End Date Esha Grimm PA-C [address] [place] [address] PCP - General Family Medicine 05/04/23 Diana Desir, [facility] [address] [place], [place] [address] Pharmacist Pharmacist 04/17/21 Rain Galaviz PA-C [address] [place] [address] [address] [place] [address] Physician Viscose Cellar Charge Hand Dermatology 04/28/21 Tavia Wyatt MD [address] [place] [address] [address] [facility] [address] Dermatology 07/14/21 Erica Farrell APRN MICRO COMPUTER DATA PROCESSOR 6405 [facility] [address] [place] [address] Nurse Practitioner Cardiovascular Disease 09/09/21 Rich Barrett MD 516 [facility] [address] [place], [place] 276675 Physician Ophthalmology 01/21/22 Neil Kent MD 500 [place], [place] 745775 Dermatology 02/24/22 Diana Desir, [facility] 3033 [place] [address] Assigned MTM Pharmacist 04/07/22 Livan Sharif MD 6405 [facility] [address] [place] [address] Cardiovascular Disease 05/14/22 Catherine Cm MD 6405 [facility] [address] [place] [address] Cardiovascular Disease 07/21/22 Valery Veronica, PAUcheC [address] [place] [address] Physician Viscose Cellar Charge Hand Dermatology 07/21/22 Brea Quinn APRN MICRO COMPUTER DATA PROCESSOR [address] [place] [address] Nurse Practitioner Dermatology 09/21/22 Brea Quinn APRN MICRO COMPUTER DATA PROCESSOR [address] [place] [address] Assigned Surgical Provider 10/09/22 [place] [address] [address] Assigned Musculoskeletal Provider 10/09/22 Alfonso Renteria MD 5775 [facility] 200 [place] [address] Assigned Neuroscience Provider 04/02/23 Radha Lomeli APRN MICRO COMPUTER DATA PROCESSOR [address] [place] [address] Assigned Heart and Vascular Provider 05/28/23 Jelena David OD [address] [facility] [place] [address] MD Ophthalmology 06/15/23 Pao Joseph, VJ Personal Advocate & Liaison (PAL) Nurse 08/01/23 11/07/23 Esha Grimm PA-C [address] [place] [phone] Assigned PCP 07/16/23 Valery Veronica PA-C [address] [place] [address] 781605 Physician Viscose Cellar Charge Hand Dermatology 09/19/23 Rey Tay MD [address] [place] [address] 420315 Gastroenterology 09/20/23 Rocky Zepeda DO [address] [place] [address] 962805 Physician Gastroenterology 09/20/23 Philip Dumont MD [address] [place] [address] 259615 Physician Ophthalmology 09/22/23 Meredith Carrera PA-C [address] [place] [address] 113875 Assigned Gastroenterology Provider 11/01/23 Niel Kent MD [address] [address] Dermatology 11/02/23 [place] [address] [facility] [address] Neurological Surgery 12/26/23 Audrey Waite, PA-C 500 [place] [address] Physician Viscose Cellar Charge Hand Dermatology 02/28/24 documented as of this encounter
--- OUTSIDE RECORDS SUMMARY | 2024-03-12 19:35 | XMS_ITS | Encounter Summary ---
Author Organization [facility] Address [address] [place] [address] Care Team Providers Care Sales And Management Trainee Name Role Phone Thang Diana [place] [facility] Unavailable Rain Galaviz PA-C Unavailable Tavia Wyatt MD Unavailable Unavailable Erica Farrell APRN KNOCKOUT WORKER Unavailable Rich Barrett MD Unavailable Neil Kent MD Unavailable Diana Desir Stanislav [facility] Unavailable [phone] Livan Sharif MD Unavailable Catherine Cm MD Unavailable + Valery Veronica PA-C Unavailable [phone] Brea Quinn PRODUCT MANAGEMENT SPECIALIST KNOCKOUT WORKER Unavailable Brea Quinn PRODUCT MANAGEMENT SPECIALIST KNOCKOUT WORKER Unavailable Jose Francisco Johnson MD Unavailable Alfonso Renteria MD Unavailable + [phone] Esha Grimm PA-C Primary Care Provider Radha Lomeli PRODUCT MANAGEMENT SPECIALIST KNOCKOUT WORKER Unavailable [phone] FrankieJelena OD Unavailable Pao Joseph RN Unavailable Unavailable Wicho Grimmlincoln Medina PA-C Unavailable [phone] Valery Veronica PA-C Unavailable [phone] Rey Tay MD Unavailable Rocky Zepeda DO Unavailable Philip Dumont MD Unavailable [phone] Meredith Carrera PA-C Unavailable [phone] Neil Kent MD Unavailable Juan Pablo Emmanuel MD Unavailable [phone] Audrey Waite PA-C Unavailable [phone] Encounter Details Date Type Department Care Team (Late st Contact Info) Description 08/25/2023 MyC Medical Advice [facility] [address] [address] Marija Polanco RN Social History Tobacco [...] Date Recorded PHQ-2 Score 0 06/20/2023 [facility] - Occupational Stress Questionnaire Answer Date Recorded [...] exercise at this level? 30 min 03/10/2023 [place] Depression Scale Answer Date Recorded [place] Depression Score 5 01/14/2021 Last EPDS Self [...] Visit [facility] Spine and Neurosurgery 1747 [facility] 100 [place] [address] Ebony Cid, [facility] 500 [place] [address] 03/27/2024 11:00 AM CDT Office Visit [facility] Monserrat [address] [facility] [address] [place] [phone] Jelena David, 3305 [facility] [place] [address] 04/19/2024 2:45 PM CDT Office Visit [facility] 830 [place] [phone] Audrey Waite PA-C 420 [facility] B385, [facility] 603 [place], [place] 8626[address] 05/08/2024 1:30 PM CDT Office Visit [facility] [address] [place] [address] Lauren Claudio PA-C [address] [place] [address] Esha Grimm PA-C [id number] [place] [address] 06/21/2024 2:00 PM OVER SHORT AND DAMAGE CLERK Office Visit [facility] Neurology [address], [address] [place] [address] [place] [address] [place] [address] Johnny Penn MD 6545 [place] [address] Scheduled Procedures Name Priority Associated Diagnoses Date/Ti co ESOPHAGOGASTRODUODENOSCOPY Eosinophilic esophagitis Esophageal dysphagia documented as of this encounter Visit Diagnoses Not on filedocumented in this encounter Additional Health Concerns Infection Onset Date Last Indicated Resolved Time Rule Out COVID-19 12/26/2023 12/26/2023 12/26/2023 9:50 AM CDT Assessment Noted Time PHQ-9 Depression Total Score: 4 06/20/20 23 8:40 AM OVER SHORT AND DAMAGE CLERK documented as of this encounter Care Teams Sales And Management Trainee Relationship Specialty Start Date End Date Esha Grimm PA-C [id number] [place] [address] PCP - General Family Medicine 05/04/23 Diana Desir, [facility] 3033 [place] [address] Pharmacist Pharmacist 04/17/21 Rain Galaviz PA-C [address] [place] [address] [address] [place] [address] Physician Window Glass Cutter Off Dermatology 04/28/21 Tavia Wyatt MD [address] [place] [address] DR ARRIOLA [facility] [address] Dermatology 07/14/21 Erica Farrell APRN KNOCKOUT WORKER [address] [place] [address] Nurse Practitioner Cardiovascular Disease 09/09/21 Rich Barrett MD [address] [place] [address] 9A [place], [place] 8[address]755 Physician Ophthalmology 01/21/22 Neil Kent MD 500 [place], [place] 136515 Dermatology 02/24/22 [facility] 3033 [place] [address] Assigned MTM Pharmacist 04/07/22 Livan Sharif MD [address] [place] [address] Cardiovascular Disease 05/14/22 Catherine Cm MD [address] [place] 116385 Cardiovascular Disease 07/21/22 Valery Veronica PA-C 909 [place], [place] 632045 Physician Window Glass Cutter Off Dermatology 07/21/22 Brea Quinn APRN KNOCKOUT WORKER 500 [place], [place] 997775 Nurse Practitioner Dermatology 09/21/22 Brea Quinn APRN KNOCKOUT WORKER 6401 [place], [place] 188592 Assigned Surgical Provider 10/09/22 [place] [address] [address] [facility] 300 [place], [place] 326097 Assigned Musculoskeletal Provider 10/09/22 Alfonso Renteria MD 5727 [facility] 200 [place] [address] Assigned Neuroscience Provider 04/02/23 Radha Lomeli APRN KNOCKOUT WORKER 6405 [facility] [address] [place], [place] 354325 Assigned Heart and Vascular Provider 05/28/23 Jelena David OD [address] [facility] [place] [address] Ophthalmology 06/15/23 Pao Joseph, VJ Personal Advocate & Liaison (PAL) Nurse 08/01/23 11/07/23 Esha Grimm PA-C [address] [place] [address] Assigned PCP 07/16/23 Valery Veronica PA-C 9 [place] [address] Physician Window Glass Cutter Off Dermatology 09/19/23 Rey Tay MD [address] [place] [address] MD Gastroenterology 09/20/23 Rocky Zepeda DO [address] [place] [address] 709185 Physician Gastroenterology 09/20/23 Philip Dumont MD [address] [place] [address] Physician Ophthalmology 09/22/23 Meredith Carrera PA-C [address] [place] [address] Assigned Gastroenterology Provider 11/01/23 Neil Kent MD [address] [place] [address] Dermatology 11/02/23 [place] [address] [place], [place] 820547 Neurological Surgery 12/26/23 Audrey Waite PA-C 500 [place] [address] Physician Window Glass Cutter Off Dermatology 02/28/24 documented as of this encounter
--- OUTSIDE RECORDS SUMMARY | 2024-03-12 19:35 | XMS_ITS | Encounter Summary ---
Author Organization [place] Address [address] [place] [address] Care Team Providers Care Rn Referral Name Role Phone Thang Diana [place] [facility] Unavailable Rain Galaviz PA-C Unavailable Tavia Wyatt MD Unavailable Unavailable Erica Farrell APRN YAM CURER Unavailable Rich Barrett MD Unavailable Neil Kent MD Unavailable Diana Desir Stanislav [facility] Unavailable [phone] Livan Sharif MD Unavailable Catherine Cm MD Unavailable + Valery Veronica PA-C Unavailable [phone] Brea Quinn HEART NURSE YAM CURER Unavailable Brea Quinn HEART NURSE YAM CURER Unavailable Jose Francisco Johnson MD Unavailable Alfonso Renteria MD Unavailable + [phone] Esah Grimm PA-C Primary Care Provider [phone] Radha Lomeli HEART NURSE YAM CURER Unavailable [phone] FrankieJelena OD Unavailable [phone] Pao Joseph RN Unavailable Unavailable Wicho Grimmlincoln Medina PA-C Unavailable [phone] Valery Veronica PA-C Unavailable [phone] Rey Tay MD Unavailable Rocky Zepeda DO Unavailable Philip Dumont MD Unavailable [phone] Meredith Carrera PA-C Unavailable [phone] Neil Kent MD Unavailable Juan Pablo Emmanuel MD Unavailable [phone] Audrey Waite PA-C Unavailable [phone] Encounter Details Date Type Department Care Team (Late st Contact Info) Description 08/25/2023 MyC Medical Advice [facility] [address] [address] Marija Polanco RN Social History [...] Recorded PHQ-2 Score 0 06/20/2023 [facility] - Occupational Stress Questionnaire Answer [...] exercise at this level? 30 min 03/10/2023 [place] Depression Scale Answer Date Recorded Adams Depression Score 5 01/14/2021 Last EPDS Self [...] Description 03/26/2024 11:20 AM CDT Office Visit [facility] Spine and Neurosurgery 1747 [facility] 100 [place] [address] Ebony Cid, [facility] 500 [place] [address] 03/27/2024 11:00 AM CDT Office Visit [facility] [place] 3305 [facility] [address] [place] [phone] Jelena David, 3305 [facility] [place] [address] 04/19/2024 2:45 PM CDT Office Visit [facility] 830 [place] [phone] Audrey Waite PA-C 420 [facility] [address]385, [facility] 603 [place], [place] [address]445 05/08/2024 1:30 PM CDT Office Visit [facility] [address] [place] [address] Lauren Claudio PA-C [address] [place] [address] Esha Grimm PA-C [address] [place] [address] 06/21/2024 2:00 PM BOX PULLER Office Visit [facility] Neurology [address], [address] [place] [address] [place] [address] [place] [address] Johnny Penn MD 6545 [place] [address] Scheduled Procedures Name Priority Associated Diagnoses Date/Ti co ESOPHAGOGASTRODUODENOSCOPY Eosinophilic esophagitis Esophageal dysphagia documented as of this encounter Visit Diagnoses Not on filedocumented in this encounter Additional Health Concerns Infection Onset Date Last Indicated Resolved Time Rule Out COVID-19 12/26/2023 12/26/2023 12/26/2023 9:50 AM CDT Assessment Noted Time PHQ-9 Depression Total Score: 4 06/20/20 23 8:40 AM BOX PULLER documented as of this encounter Care Teams Rn Referral Relationship Specialty Start Date End Date Esha Grimm PA-C [id number] [place] [address] PCP - General Family Medicine 05/04/23 Diana Desir, [facility] 3033 [place] [address] Pharmacist Pharmacist 04/17/21 Rain Galaviz PA-C [address] [place] [address] [address] [place] [address] Physician Car Seat Coverer Dermatology 04/28/21 Tavia Wyatt MD [address] [place] [address] DR [facility] [address] Dermatology 07/14/21 Erica Farrell APRN YAM CURER [address] [place] [address] Nurse Practitioner Cardiovascular Disease 09/09/21 Rich Barrett MD [address] [place] [address] 9A [place], [place] 5[address]45 Physician Ophthalmology 01/21/22 Neil Kent MD 500 [place], [place] 127345 Dermatology 02/24/22 [facility] 3033 [place] [address] Assigned MTM Pharmacist 04/07/22 Livan Sharif MD [address] [place] 8937[address] Cardiovascular Disease 05/14/22 Catherine Cm MD [address] [place] 095[address] Cardiovascular Disease 07/21/22 Valery Veronica PA-C 909 [place], [place] 474775 Physician Car Seat Coverer Dermatology 07/21/22 Brea Quinn APRN YAM CURER 500 [place], [place] 718305 Nurse Practitioner Dermatology 09/21/22 Brea Quinn APRN YAM CURER 6401 [place], [place] 964442 Assigned Surgical Provider 10/09/22 [place] [address] [address] [facility] 300 [place], [place] 9[address]27 Assigned Musculoskeletal Provider 10/09/22 Alfonso Renteria MD 5748 [facility] 200 [place] [address] Assigned Neuroscience Provider 04/02/23 Radha Lomeli APRN YAM CURER [address] [facility] [address] [place], [place] 87[address]95 Assigned Heart and Vascular Provider 05/28/23 Jelena David OD [address] [facility] [place] [address] Ophthalmology 06/15/23 Pao Joseph, VJ Personal Advocate & Liaison (PAL) Nurse 08/01/23 11/07/23 Esha Grimm PA-C [address] [place] [address] Assigned PCP 07/16/23 Valery Veronica PA-C 9 [place] [address] Physician Car Seat Coverer Dermatology 09/19/23 Rey Tay MD [address] [place] [address] MD Gastroenterology 09/20/23 Rocky Zepeda DO [address] [place] [address] 592975 Physician Gastroenterology 09/20/23 Philip Dumont MD [address] [place] [address] Physician Ophthalmology 09/22/23 Meredith Carrera PA-C [address] [place] [address] Assigned Gastroenterology Provider 11/01/23 Neil Kent MD [address] [place] [address] Dermatology 11/02/23 [place] [address] [place], [place] 180157 Neurological Surgery 12/26/23 Audrey Waite PA-C 500 [place] [address] Physician Car Seat Coverer Dermatology 02/28/24 documented as of this encounter
--- OUTSIDE RECORDS SUMMARY | 2024-03-12 19:35 | XMS_ITS | Encounter Summary ---
Author Organization [place] Address [address] [place] [address] Care Team Providers Care Potter Or Ceramic Artist Name Role Phone Thang Diana [place] [facility] Unavailable [phone] Rain Galaviz PA-C Unavailable [phone] Tavia Wyatt MD Unavailable Unavailable Erica Farrell APRN CHIEF LOCK OPERATOR Unavailable Rich Barrett MD Unavailable Neil Kent MD Unavailable Diana Desir Stanislav [facility] Unavailable [phone] Livan Sharif MD Unavailable Catherine Cm MD Unavailable + Valery Veronica PA-C Unavailable [phone] Brea Quinn LOCOMOTIVE OILER CHIEF LOCK OPERATOR Unavailable Brea Quinn LOCOMOTIVE OILER CHIEF LOCK OPERATOR Unavailable Jose Francisco Johnson MD Unavailable Alfonso Renteria MD Unavailable + [phone] Esha Grimm PA-C Primary Care Provider Radha Lomeli LOCOMOTIVE OILER CHIEF LOCK OPERATOR Unavailable [phone] Jelena David OD Unavailable Pao Joseph RN Unavailable Unavailable Esha Grimm Adam PA-C Unavailable [phone] Valery Veronica PA-C Unavailable [phone] Rey Tay MD Unavailable Rocky Zepeda DO Unavailable Philip Dumont MD Unavailable [phone] Meredith Carrera PA-C Unavailable [phone] Neil Kent MD Unavailable Juan Pablo Emmanuel MD Unavailable [phone] Audrey Waite PA-C Unavailable [phone] Encounter Details Date Type Department Care Team (Late st Contact Info) Description 08/11/2023 MyC Medical Advice [address] [address] Pao Joseph, RN Social History [...] Score 0 06/20/2023 [facility] - [facility]ational Stress Questionnaire [...] exercise at this level? 30 min 03/10/2023 [place] Depression Scale Answer Date Recorded [place] Depression Score 5 01/14/2021 Last EPDS Self [...] 03/26/2024 11:20 AM CDT Office Visit [facility] Spine and Neurosurgery 1747 [facility] 100 [place] [address] Ebony Cid, ARLENE CHIEF LOCK OPERATOR 500 [place], [place] 407[address] 03/27/2024 11:00 AM CDT Office Visit [facility] Monserrat 3305 [facility] [address] [place] [phone] Jelena David, 3305 [facility] [place] [address] 04/19/2024 2:45 PM CDT Office Visit [facility] 830 [place] [phone] Audrey Waite PA-C 420 [facility] [address], [facility] 603 [place], [place] 070875 05/08/2024 1:30 PM CDT Office Visit [facility] [address] [place] [address] Lauren Claudio PA-C [address] [place] [address] Esha Grimm PA-C [id number] [place] [address] 06/21/2024 2:00 PM HOSPITAL MORTICIAN Office Visit [facility] Neurology [address], [address] [place] [phone] [place] [address] [place] [address] Johnny Penn MD 6545 [place] [address] Scheduled Procedures Name Priority Associated Diagnoses Date/Ti ny ESOPHAGOGASTRODUODENOSCOPY Eosinophilic esophagitis Esophageal dysphagia documented as of this encounter Visit Diagnoses Not on filedocumented in this encounter Additional Health Concerns Infection Onset Date Last Indicated Resolved Time Rule Out COVID-19 12/26/2023 12/26/2023 12/26/2023 9:50 AM CDT Assessment Noted Time PHQ-9 Depression Total Score: 4 06/20/20 23 8:40 AM HOSPITAL MORTICIAN documented as of this encounter Care Teams Potter Or Ceramic Artist Relationship Specialty Start Date End Date Esha Grimm PA-C [id number] [place] [address] PCP - General Family Medicine 05/04/23 Diana Desir, [facility] 3033 [place] [address] Pharmacist Pharmacist 04/17/21 Rain Galaviz PA-C [address] [place] [address] [address] [place] [address] Physician Powder Monkey Dermatology 04/28/21 Tavia Wyatt MD [address] [place] [address] [facility] [address] Dermatology 07/14/21 Erica Farrell APRN CHIEF LOCK OPERATOR [address] [place] [address] Nurse Practitioner Cardiovascular Disease 09/09/21 Rich Barrett MD [address] [place] [address] 9[address] [place] [address] Physician Ophthalmology 01/21/22 Neil Kent MD 500 [place], [place] 992965 Dermatology 02/24/22 Diana Desir, [facility] [address] [place] [address] Assigned MTM Pharmacist 04/07/22 Livan Sharif MD [address] [place] [id number] Cardiovascular Disease 05/14/22 Catherine Cm MD [address] [place] [address] Cardiovascular Disease 07/21/22 Valery Veronica PA-C 909 [place], [place] 736565 Physician Powder Monkey Dermatology 07/21/22 Brea Quinn APRN CHIEF LOCK OPERATOR 500 [place], [place] 129365 Nurse Practitioner Dermatology 09/21/22 Brea Quinn APRN CHIEF LOCK OPERATOR 6401 [facility] [place], [place] 851222 Assigned Surgical Provider 10/09/22 [place] [address] [facility] 300 [place], [place] 799107 Assigned Musculoskeletal Provider 10/09/22 Alfonso Renteria MD 5775 [facility] 200 [place] [address] Assigned Neuroscience Provider 04/02/23 Radha Lomeli APRN CHIEF LOCK OPERATOR 6405 [facility] [address] [place] 8[address]105 Assigned Heart and Vascular Provider 05/28/23 Jelena David OD 3305 [facility] [place] [id number] Ophthalmology 06/15/23 Pao Joseph, RN Personal Advocate & Liaison (PAL) Nurse 08/01/23 11/07/23 Esha Grimm PA-C [address] [place] [phone] Assigned PCP 07/16/23 Valery Veronica PA-C 9 [place] [address] Physician Powder Monkey Dermatology 09/19/23 Rey Tay MD 9 [place] [address] MD Gastroenterology 09/20/23 Rocky Zepeda DO 500 [place], [place] 967545 Physician Gastroenterology 09/20/23 Philip Dumont MD [address] [place] [address] 668925 Physician Ophthalmology 09/22/23 Meredith Carrera PA-C [address] [place] [address] Assigned Gastroenterology Provider 11/01/23 Neil Kent MD [address] [address] Dermatology 11/02/23 [place] [address] [place], [place] 0[address] Neurological Surgery 12/26/23 Audrey Waite PA-C 500 [place] [address] Physician Powder Monkey Dermatology 02/28/24 documented as of this encounter
--- OUTSIDE RECORDS SUMMARY | 2024-03-12 19:35 | XMS_ITS | Encounter Summary ---
Author Organization [place] Address [address] [place] [address] Care Team Providers Care Eradicator Name Role Phone Thang Diana [place] [facility] Unavailable [phone] Rain Galaviz PA-C Unavailable Tavia Wyatt MD Unavailable Unavailable Erica Farrell APRN ORNAMENTAL PLASTERER HELPER Unavailable Rich Barrett MD Unavailable Neil Kent MD Unavailable Diana Desir Stanislav [facility] Unavailable [phone] Livan Sharif MD Unavailable Catherine Cm MD Unavailable + Valery Veronica PA-C Unavailable [phone] Brea Quinn ORIENTATION AND MOBILITY INSTRUCTOR ORNAMENTAL PLASTERER HELPER Unavailable [phone] Brea Quinn ORIENTATION AND MOBILITY INSTRUCTOR ORNAMENTAL PLASTERER HELPER Unavailable [phone] Jose Francisco Johnson MD Unavailable Alfonso Renteria MD Unavailable + [phone] Esha Grimm PA-C Primary Care Provider [phone] Radha Lomeli ORIENTATION AND MOBILITY INSTRUCTOR ORNAMENTAL PLASTERER HELPER Unavailable [phone] FrankieJelena OD Unavailable Pao Joseph RN Unavailable Unavailable Jesus Grimmyllincoln Medina PA-C Unavailable [phone] Valery Veronica PA-C Unavailable Rey Tay MD Unavailable Rocky Zepeda DO Unavailable Philip Dumont MD Unavailable [phone] Meredith Carrera PA-C Unavailable [phone] Neil Kent MD Unavailable Juan Pablo Emmanuel MD Unavailable [phone] Audrey Waite PA-C Unavailable [phone] Encounter Details Date Type Department Care Team (Late st Contact Info) Description 08/04/2023 MyC Medical Advice [address] [address] [facility] 3033 [place] [address] Social History Tobacco Use Types Packs/Day Years [...] Answer Date Recorded PHQ-2 Score 0 06/20/2023 [facility] of Occupat ional Health - [...] exercise at this level? 30 min 03/10/2023 [place] Depression Scale Answer Date Recorded [...] Description 03/26/2024 11:20 AM CDT Office Visit [facility] Spine and Neurosurgery 1747 [facility] 100 [place] [address] Ebony Cid, [facility] 500 [place], [place] 753345 03/27/2024 11:00 AM CDT Office Visit [facility] Monserrat [address] [facility] [address] [place] [phone] Jelena David, 3305 [facility] [place] [address] 04/19/2024 2:45 PM CDT Office Visit [facility] [address] [place] [phone] Audrey Waite PA-C 420 [facility] [address], [facility] 603 [place] [address] 05/08/2024 1:30 PM CDT Office Visit [facility] [address] [place] [address] Lauren Claudio PA-C [address] [place] [address] Esha Grimm PA-C [address] [place] [address] 06/21/2024 2:00 PM STRENGTH AND CONDITIONING COACH Office Visit [facility] Neurology [facility] [address], [address] [place] [address] [place] [address] [address] Johnny Penn MD 6545 [place], [place] [phone] Scheduled Procedures Name Priority Associated Diagnoses Date/Ti ri ESOPHAGOGASTRODUODENOSCOPY Eosinophilic esophagitis Esophageal dysphagia documented as of this encounter Visit Diagnoses Not on filedocumented in this encounter Additional Health Concerns Infection Onset Date Last Indicated Resolved Time Rule Out COVID-19 12/26/2023 12/26/2023 12/26/2023 9:50 AM CDT Assessment Noted Time PHQ-9 Depression Total Score: 4 06/20/20 23 8:40 AM STRENGTH AND CONDITIONING COACH documented as of this encounter Care Teams Eradicator Relationship Specialty Start Date End Date Esha Grimm PA-C [id number] [place] [address] PCP - General Family Medicine 05/04/23 Diana Desir, [facility] [address] [place] [address] Pharmacist Pharmacist 04/17/21 Rain Galaviz PA-C [address] [place] [address] [address] [place] [address] Physician Chief Safety Officer Dermatology 04/28/21 Tavia Wyatt MD [address] [place] [address] [address] [place] [address] Dermatology 07/14/21 Erica Farrell APRN ORNAMENTAL PLASTERER HELPER [address] [place] 573495 Nurse Practitioner Cardiovascular Disease 09/09/21 Rich Barrett MD [address] 118[address] Physician Ophthalmology 01/21/22 Neil Kent MD 500 [place], [place] 384585 Dermatology 02/24/22 Diana Desir, [facility] [address] [place] [address] Assigned MTM Pharmacist 04/07/22 Livan Sharif MD [address] [place] 618665 Cardiovascular Disease 05/14/22 Catherine Cm MD 6405 [facility] [address] [place] [address] Cardiovascular Disease 07/21/22 Valery Veronica, PAUcheC 909 [place] [address] Physician Chief Safety Officer Dermatology 07/21/22 Brea Quinn APRN ORNAMENTAL PLASTERER HELPER 500 [place] [address] Nurse Practitioner Dermatology 09/21/22 Brea Quinn APRN ORNAMENTAL PLASTERER HELPER 6401 [facility] [place] [address] Assigned Surgical Provider 10/09/22 [place] [address] [address] [facility] 300 [place] [address] Assigned Musculoskeletal Provider 10/09/22 Alfonso Renteria MD 5775 [facility] 200 [place] [address] Assigned Neuroscience Provider 04/02/23 Radha Lomeli APRN ORNAMENTAL PLASTERER HELPER 6405 [facility] [address] [place] [address] Assigned Heart and Vascular Provider 05/28/23 Jelena David OD [address] [facility] [place] [address] Ophthalmology 06/15/23 Pao Joseph, RN Personal Advocate & Liaison (PAL) Nurse 08/01/23 11/07/23 Esha Grimm PA-C [address] [place] [address] Assigned PCP 07/16/23 Valery Veronica PA-C [address] [place] [address] 381245 Physician Chief Safety Officer Dermatology 09/19/23 Rey Tay MD [address] [place] [address] 366[address] MD Gastroenterology 09/20/23 Rocky Zepeda DO [address] [place] [address] 376155 Physician Gastroenterology 09/20/23 Philip Dumont MD [address] [place] [address] 720325 Physician Ophthalmology 09/22/23 Meredith Carrera PA-C [address] [place] [address] Assigned Gastroenterology Provider 11/01/23 Neil Kent MD [address] [address] Dermatology 11/02/23 [place] [address] [place] [address] Neurological Surgery 12/26/23 Audrey Waite PA-C [address] [place] [address] Physician Chief Safety Officer Dermatology 02/28/24 documented as of this encounter
--- OUTSIDE RECORDS SUMMARY | 2024-03-12 19:35 | XMS_ITS | Encounter Summary ---
Author Organization [place] Address [address] [place] [address] Care Team Providers Care Foundry Equipment Mechanic Name Role Phone Thang Diana [place] [facility] Unavailable Rain Galaviz PA-C Unavailable Tavia Wyatt MD Unavailable Unavailable Erica Farrell APRN CHISEL TRIMMER Unavailable Rich Barrett MD Unavailable Neil Kent MD Unavailable Diana Desir Stanislav [facility] Unavailable [phone] Livan Sharif MD Unavailable Catherine Cm MD Unavailable + Valery Veronica PA-C Unavailable [phone] Brea Quinn EGYPTOLOGIST CHISEL TRIMMER Unavailable [phone] Brea Quinn EGYPTOLOGIST CHISEL TRIMMER Unavailable Jose Francisco Johnson MD Unavailable Alfonso Renteria MD Unavailable + [phone] Esha Grimm PA-C Primary Care Provider Radha Lomeli EGYPTOLOGIST CHISEL TRIMMER Unavailable [phone] FrankieJelena OD Unavailable Pao Joseph RN Unavailable Unavailable Jesus Grimmyllincoln Medina PA-C Unavailable [phone] Valery Veronica PA-C Unavailable Rey Tay MD Unavailable Rocky Zepeda DO Unavailable Philip Dumont MD Unavailable [phone] Meredith Carrera PA-C Unavailable Neil Kent MD Unavailable Juan Pablo Emmanuel MD Unavailable [phone] Audrey Waite PA-C Unavailable [phone] Encounter Details Date Type Department Care Team (Late st Contact Info) Description 09/01/2023 MyC Medical Advice [address] [address] [facility] 3033 [place] [address] Social History Tobacco Use Types Packs/Day Years [...] often do you attend chur ch or voodoo services? 1 to 4 times [...] exercise at this level? 30 min 03/10/2023 [place] Depression Scale Answer Date Recorded [place] Depression Score 5 01/14/2021 Last EPDS [...] 11:20 AM CDT Office Visit [facility] Spine and Neurosurgery 1747 [facility] 100 [place] [address] Ebony Cid, ARLENE [facility] 500 [place], [place] 995835 03/27/2024 11:00 AM CDT Office Visit [facility] Monserrat [address] [facility] [address] [place] [phone] Jelena David, 3305 [facility] [place] [address] 04/19/2024 2:45 PM CDT Office [facility] [address] [place] [phone] Audrey Waite PA-C 420 [facility] [address], [facility] 603 [place] [address] 05/08/2024 1:30 PM CDT Office Visit [facility] [address] [place] [address] Lauren Claudio PA-C [address] [place] [address] Esha Grimm PA-C [address] [place] [address] 06/21/2024 2:00 PM ENVIRONMENTAL HEALTH OFFICER Office Visit [facility] Neurology [facility] [address], [address] [place] [address] [place] [address] [facility] [address] [address] Johnny Penn MD 6545 [place], [place] [address] Scheduled Procedures Name Priority Associated Diagnoses Date/Ti ok ESOPHAGOGASTRODUODENOSCOPY Eosinophilic esophagitis Esophageal dysphagia documented as of this encounter Visit Diagnoses Not on filedocumented in this encounter Additional Health Concerns Infection Onset Date Last Indicated Resolved Time Rule Out COVID-19 12/26/2023 12/26/2023 12/26/2023 9:50 AM CDT Assessment Noted Time PHQ-9 Depression Total Score: 4 06/20/20 23 8:40 AM ENVIRONMENTAL HEALTH OFFICER documented as of this encounter Care Teams Foundry Equipment Mechanic Relationship Specialty Start Date End Date Esha Grimm PA-C [id number] [place] [address] PCP - General Family Medicine 05/04/23 Diana Desir, [facility] [address] [place] [address] Pharmacist Pharmacist 04/17/21 Rain Galaviz PA-C [address] [place] [address] [address] [place] [address] Physician Servicing Rep Dermatology 04/28/21 Tavia Wyatt MD [address] [place] [address] [address] [place] [address] Dermatology 07/14/21 Erica Farrell APRN CHISEL TRIMMER [address] [place] [address] Nurse Practitioner Cardiovascular Disease 09/09/21 Rich Barrett MD [address] 077045 Physician Ophthalmology 01/21/22 Neil Kent MD 500 [place], [place] 5[address]75 Dermatology 02/24/22 Diana Desir, [facility] [address] [place] [address] Assigned MTM Pharmacist 04/07/22 Livan Sharif MD [address] [place] 887745 Cardiovascular Disease 05/14/22 Catherine Cm MD 6405 [facility] [address] [place] [address] Cardiovascular Disease 07/21/22 Valery Veronica, PAUcheC 909 [place] [address] Physician Servicing Rep Dermatology 07/21/22 Brea Quinn APRN CHISEL TRIMMER 500 [place] [address] Nurse Practitioner Dermatology 09/21/22 Brea Quinn APRN CHISEL TRIMMER 6401 [facility] [place] [place] [address] Assigned Surgical Provider 10/09/22 [place] [address] [facility] 300 [place] [address] Assigned Musculoskeletal Provider 10/09/22 Alfonso Renteria MD 5775 [facility] 200 [place] [address] Assigned Neuroscience Provider 04/02/23 Radha Lomeli APRN CHISEL TRIMMER 6405 [facility] [address] [place] [address] Assigned Heart and Vascular Provider 05/28/23 Jelena David OD 3[address] [facility] [place] [address] Ophthalmology 06/15/23 Pao Joseph, RN Personal Advocate & Liaison (PAL) Nurse 08/01/23 11/07/23 Esha Grimm PA-C [address] [place] [address] Assigned PCP 07/16/23 Valery Veronica PA-C [address] [place] [address] 218485 Physician Servicing Rep Dermatology 09/19/23 Rey Tay MD [address] [place] [address] 995075 MD Gastroenterology 09/20/23 Rocky Zepeda DO [address] [place] [address] 368005 Physician Gastroenterology 09/20/23 Philip Dumont MD [address] [place] [address] 381925 Physician Ophthalmology 09/22/23 Meredith Carrera PA-C [address] [place] [address] Assigned Gastroenterology Provider 11/01/23 Neil Kent MD [address] [address] Dermatology 11/02/23 [place] [address] [place] [address] Neurological Surgery 12/26/23 Audrey Waite PA-C [address] [place] [address] Physician Servicing Rep Dermatology 02/28/24 documented as of this encounter
--- OUTSIDE RECORDS SUMMARY | 2024-03-12 19:35 | XMS_ITS | Encounter Summary ---
Author Organization [facility] Address [address] [place] [address] Care Team Providers Care Bottom Liner Name Role Phone Thang [facility] [place] [facility] Unavailable [phone] Rain Galaviz PA-C Unavailable Tavia Wyatt MD Unavailable Unavailable Erica Farrell APRN ENTRY LEVEL STAFF ACCOUNTANT Unavailable Rich Barrett MD Unavailable Neil Kent MD Unavailable Diana Desir Stanislav [facility] Unavailable [phone] Livan Sharif MD Unavailable Catherine Cm MD Unavailable + Valery Veronica PA-C Unavailable [phone] Brea Quinn MARKETING FINANCIAL ANALYST ENTRY LEVEL STAFF ACCOUNTANT Unavailable Brea Quinn MARKETING FINANCIAL ANALYST ENTRY LEVEL STAFF ACCOUNTANT Unavailable Jose Francisco Johnson MD Unavailable Alfonso Renteria MD Unavailable + [phone] Esha Grimm PA-C Primary Care Provider [phone] Radha Lomeli MARKETING FINANCIAL ANALYST ENTRY LEVEL STAFF ACCOUNTANT Unavailable [phone] Jelena David OD Unavailable Pao Joseph RN Unavailable Unavailable Esha Grimm Adam PA-C Unavailable [phone] Valery Veronica PA-C Unavailable [phone] Rey Tay MD Unavailable Rocky Zepeda DO Unavailable Philip Dumont MD Unavailable [phone] Meredith Carrera PA-C Unavailable [phone] Neil Kent MD Unavailable Juan Pablo Emmanuel MD Unavailable [phone] Audrey Waite PA-C Unavailable [phone] Encounter Details Date Type Department Care Team (Late st Contact Info) Description 09/20/2023 MyC Medical Advice [facility] [address] [address] Jeffery Vieira, RN Social History Tobacco [...] Answer Date Recorded PHQ-2 Score 0 06/20/2023 [facility] - Occupational Stress Questionnaire [...] exercise at this level? 30 min 03/10/2023 Kerby Depression Scale Answer Date Recorded Kerby Depression Score 5 01/14/2021 Last EPDS Self [...] Description 03/26/2024 11:20 AM CDT Office Visit [facility] Spine and Neurosurgery 1747 [facility] 100 [place] [phone] Ebony Cid, [facility] 500 [place], [place] [address] 03/27/2024 11:00 AM CDT Office Visit [facility] [place]err[place] 3305 [facility] [address] [place] [phone] Jelena David, SONJA 3305 [facility] [place] [address] 04/19/2024 2:45 PM CDT Office Visit [facility] 830 [place] [phone] Audrey Waite PA-C 420 [facility] B385, [facility] 603 [place], [place] [address] 05/08/2024 1:30 PM CDT Office Visit [facility] [address] [place] [address] Lauren Claudio PA-C [address] [place] [address] Esha Grimm PA-C [id number] [place] [address] 06/21/2024 2:00 PM UTILIZATION REVIEW SPECIALIST Office Visit [facility] Neurology [address], [address] [place] [address] [place] [address] RAZO [address] [place] [address] Johnny Penn MD 6545 [place] [address] Scheduled Procedures Name Priority Associated Diagnoses Date/Ti mn ESOPHAGOGASTRODUODENOSCOPY Eosinophilic esophagitis Esophageal dysphagia documented as of this encounter Visit Diagnoses Not on filedocumented in this encounter Additional Health Concerns Infection Onset Date Last Indicated Resolved Time Rule Out COVID-19 12/26/2023 12/26/2023 12/26/2023 9:50 AM CDT Assessment Noted Time PHQ-9 Depression Total Score: 4 06/20/20 23 8:40 AM UTILIZATION REVIEW SPECIALIST documented as of this encounter Care Teams Bottom Liner Relationship Specialty Start Date End Date Esha Grimm PA-C [id number] [place] [address] PCP - General Family Medicine 05/04/23 Diana Desir, [facility] 3033 [place] [address] Pharmacist Pharmacist 04/17/21 Rain Galaviz PA-C [address] [place] [address] [address] [place] [address] Physician Trolley Collector Dermatology 04/28/21 Tavia Wyatt MD [address] [place] [address] [address] RA[address] Lara [place] [address] Dermatology 07/14/21 Erica Farrell APRN ENTRY LEVEL STAFF ACCOUNTANT [address] [place] [address] Nurse Practitioner Cardiovascular Disease 09/09/21 Rich Barrett MD [address] [place] [address] [address] [place], [place] 171065 Physician Ophthalmology 01/21/22 Neil Kent MD [address] [place] [address] 800245 Dermatology 02/24/22 Diana Desir, [facility] 3033 [place] [address] Assigned MTM Pharmacist 04/07/22 Livan Sharif MD [address] [place] [address] Cardiovascular Disease 05/14/22 Catherine Cm MD [address] [place] 314745 Cardiovascular Disease 07/21/22 Valery Veronica PA-C 909 [place], [place] 565675 Physician Trolley Collector Dermatology 07/21/22 Brea Quinn APRN ENTRY LEVEL STAFF ACCOUNTANT 500 [place], [place] 6009[address] Nurse Practitioner Dermatology 09/21/22 Brea Quinn APRN ENTRY LEVEL STAFF ACCOUNTANT 6401 [place], [place] 652392 Assigned Surgical Provider 10/09/22 [place] [address] [address] [facility] 300 [place], [place] 6[address]47 Assigned Musculoskeletal Provider 10/09/22 Alfonso Renteria MD 5775 [facility] 200 [place], [place] [phone] Assigned Neuroscience Provider 04/02/23 Radha Lomeli APRN ENTRY LEVEL STAFF ACCOUNTANT 6405 [facility] [address] [place], [place] 749345 Assigned Heart and Vascular Provider 05/28/23 Jelena David OD [address] [facility] [place] [address] Ophthalmology 06/15/23 Pao Joseph, VJ Personal Advocate & Liaison (PAL) Nurse 08/01/23 11/07/23 Esha Grimm PA-C [address] [place] [address] Assigned PCP 07/16/23 Valery Veronica PA-C [address] [place] [address] Physician Trolley Collector Dermatology 09/19/23 Rey Tay MD [address] [place] [address] MD Gastroenterology 09/20/23 Rocky Zepeda DO [address] [place] [address] 230495 Physician Gastroenterology 09/20/23 Philip Dumont MD [address] [place] [address] 811215 Physician Ophthalmology 09/22/23 Meredith Carrera PA-C [address] [place] [address] 843575 Assigned Gastroenterology Provider 11/01/23 Neil Kent MD [address] 176640 Dermatology 11/02/23 [place] [address] [facility] [address] Neurological Surgery 12/26/23 Audrey Waite PA-C [address] [place] [address] 625315 Physician Trolley Collector Dermatology 02/28/24 documented as of this encounter
--- OUTSIDE RECORDS SUMMARY | 2024-03-12 19:35 | XMS_ITS | Encounter Summary ---
Author Organization [facility] Address [address] [place] [address] Care Team Providers Care Gas Booster Engineer Name Role Phone Thang Diana [place] [facility] Unavailable Rain Galaviz PA-C Unavailable Tavia Wyatt MD Unavailable Unavailable Erica Farrell APRN MARKETING CONSULTANT Unavailable Rich Barrett MD Unavailable Neil Kent MD Unavailable Diana Desir Stanislav [facility] Unavailable [phone] Livan Sharif MD Unavailable Catherine Cm MD Unavailable + Valery Veronica PA-C Unavailable [phone] Brea Quinn NETWORK ADMINISTRATOR MARKETING CONSULTANT Unavailable Brea Quinn NETWORK ADMINISTRATOR MARKETING CONSULTANT Unavailable [phone] Jose Francisco Johnson MD Unavailable Alfonso Renteria MD Unavailable + [phone] Esha Grimm PA-C Primary Care Provider [phone] Radha Lomeli NETWORK ADMINISTRATOR MARKETING CONSULTANT Unavailable [phone] FrankieJelena OD Unavailable [phone] Pao Joseph RN Unavailable Unavailable Wicho Grimmlincoln Medina PA-C Unavailable Valery Vreonica PA-C Unavailable [phone] Rey Tay MD Unavailable Rocky Zepeda DO Unavailable Philip Dumont MD Unavailable [phone] Meredith Carrera PA-C Unavailable [phone] Neil Kent MD Unavailable Juan Pablo Emmanuel MD Unavailable [phone] Audrey Waite PA-C Unavailable [phone] Encounter Details Date Type Department Care Team (Late st Contact Info) Description 09/08/2023 MyC Medical Advice [facility] Gastro[facility]ology Clinic [address] [address] Marija Polanco RN Social History [...] PHQ-2 Score 0 06/20/2023 [facility] - Occupational Stress Questionnaire Answer [...] exercise at this level? 30 min 03/10/2023 [place] Depression Scale Answer Date Recorded [place] Depression Score 5 01/14/2021 Last EPDS [...] Description 03/26/2024 11:20 AM CDT Office Visit [facility] Spine and Neurosurgery 1747 [facility] 100 [place] [address] Ebony Cid, [facility] 500 [place] [address] 03/27/2024 11:00 AM CDT Office Visit [facility] [place] 3305 [facility] [address] [place] [phone] Jelena David, 3305 [facility] [place] [address] 04/19/2024 2:45 PM CDT Office Visit [facility] 830 [place] [phone] Audrey Waite PA-C 420 [facility] [address]385, [facility] 603 [place], [place] [address] 05/08/2024 1:30 PM CDT Office Visit [facility] [address] [place] [address] Lauren Claudio PA-C [address] [place] [address] Esha Grimm PA-C [address] [place] [address] 06/21/2024 2:00 PM SHEAR TENDER Office Visit [facility] Neurology [address], [address] [place] [address] [place] [address] [place] [address] Johnny Penn MD 6545 [place] [address] Scheduled Procedures Name Priority Associated Diagnoses Date/Ti al ESOPHAGOGASTRODUODENOSCOPY Eosinophilic esophagitis Esophageal dysphagia documented as of this encounter Visit Diagnoses Not on filedocumented in this encounter Additional Health Concerns Infection Onset Date Last Indicated Resolved Time Rule Out COVID-19 12/26/2023 12/26/2023 12/26/2023 9:50 AM CDT Assessment Noted Time PHQ-9 Depression Total Score: 4 06/20/20 23 8:40 AM SHEAR TENDER documented as of this encounter Care Teams Gas Booster Engineer Relationship Specialty Start Date End Date Esha Grimm PA-C [id number] [place] [address] PCP - General Family Medicine 05/04/23 Diana Desir, [facility] 3033 [place] [address] Pharmacist Pharmacist 04/17/21 Rain Galaviz PA-C [address] [place] [address] [address] [place] [address] Physician Medicare Contact Specialist Dermatology 04/28/21 Tavia Wyatt MD [address] [place] [address] DR [facility] [address] Dermatology 07/14/21 Erica Farrell APRN MARKETING CONSULTANT [address] [place] [address] Nurse Practitioner Cardiovascular Disease 09/09/21 Rich Barrett MD [address] [place] [address] [address] [place], [place] 617415 Physician Ophthalmology 01/21/22 Neil Kent MD 500 [place], [place] 153925 Dermatology 02/24/22 [facility] 3033 [place] [address] Assigned MTM Pharmacist 04/07/22 Livan Sharif MD [address] [place] [address] Cardiovascular Disease 05/14/22 Catherine Cm MD [address] [place] 792105 Cardiovascular Disease 07/21/22 Valery Veronica PA-C 909 [place], [place] 635825 Physician Medicare Contact Specialist Dermatology 07/21/22 Brea Quinn APRN MARKETING CONSULTANT 500 [place], [place] 914925 Nurse Practitioner Dermatology 09/21/22 Brea Quinn APRN MARKETING CONSULTANT 6401 [place], [place] 313212 Assigned Surgical Provider 10/09/22 [place] [address] [address] [facility] 300 [place], [place] 189377 Assigned Musculoskeletal Provider 10/09/22 Alfonso Renteria MD 57[address] [facility] 200 [place] [address] Assigned Neuroscience Provider 04/02/23 Radha Lomeli APRN MARKETING CONSULTANT 6405 [facility] [address] [place], [place] 606[address] Assigned Heart and Vascular Provider 05/28/23 Jelena David OD [address] [facility] [place] [address] Ophthalmology 06/15/23 Pao Joseph, VJ Personal Advocate & Liaison (PAL) Nurse 08/01/23 11/07/23 Esha Grimm PA-C [address] [place] [address] Assigned PCP 07/16/23 Valery Veronica PA-C 9 [place] [address] Physician Medicare Contact Specialist Dermatology 09/19/23 Rey Tay MD [address] [place] [address] MD Gastroenterology 09/20/23 Rocky Zepeda DO [address] [place] [address] 585395 Physician Gastroenterology 09/20/23 Philip Dumont MD [address] [place] [address] Physician Ophthalmology 09/22/23 Meredith Carrera PA-C [address] [place] [address] Assigned Gastroenterology Provider 11/01/23 Neil Kent MD [address] [place] [address] Dermatology 11/02/23 [place] [address] [place], [place] 719397 Neurological Surgery 12/26/23 Audrey Waite PA-C 500 [place] [address] Physician Medicare Contact Specialist Dermatology 02/28/24 documented as of this encounter
--- OUTSIDE RECORDS SUMMARY | 2024-03-12 19:35 | XMS_ITS | Encounter Summary ---
Author Organization [facility] Address [address] [place] [address] Care Team Providers Care Drill Sharpener Operator Name Role Phone Thang Diana [place] [facility] Unavailable [phone] Rain Galaviz PA-C Unavailable [phone] Tavia Wyatt MD Unavailable Unavailable Erica Farrell APRN PLUGGER MAN Unavailable Rich Barrett MD Unavailable Neil Kent MD Unavailable Diana Desir Stanislav [facility] Unavailable [phone] Livan Sharif MD Unavailable Catherine Cm MD Unavailable + Valery Veronica PA-C Unavailable [phone] Brea Quinn CARE DIRECTOR PLUGGER MAN Unavailable Brea Quinn CARE DIRECTOR PLUGGER MAN Unavailable Jose Francisco Johnson MD Unavailable Alfonso Renteria MD Unavailable + [phone] Esha Grimm PA-C Primary Care Provider Radha Lomeli CARE DIRECTOR PLUGGER MAN Unavailable [phone] FrankieJelenae OD Unavailable [phone] Pao Joseph RN Unavailable Unavailable AlfaWicholincoln Medina PA-C Unavailable [phone] Valery Veronica PA-C Unavailable [phone] Rey Tay MD Unavailable Rocky Zepeda DO Unavailable Philip Dumont MD Unavailable [phone] Meredith Carrera PA-C Unavailable [phone] Neil Kent MD Unavailable Juan Pablo Emmanuel MD Unavailable [phone] Audrey Waite PA-C Unavailable [phone] Encounter Details Date Type Department Care Team (Late st Contact Info) Description 09/08/2023 MyC Medical Advice [facility] Gastroenterology Clinic [address] [address] Mary Kelsey Social History Tobacco Use [...] 0 06/20/2023 [facility] - Occupational Stress Questionnaire Answer [...] exercise at this level? 30 min 03/10/2023 Zullinger Depression Scale Answer Date Recorded Zullinger Depression Score 5 01/14/2021 Last EPDS Self [...] Office Visit [facility] Spine and Neurosurgery 1747 [facility] 100 [place] [address] Ebony Cid, ARLENE PLUGGER MAN 500 [place], [place] 435015 03/27/2024 11:00 AM CDT Office Visit [facility] Monserrat [address] [facility] [address] [place] [phone] Jelena David, 3305 [facility] [place] [address] 04/19/2024 2:45 PM CDT Office Visit [facility] 830 [place] [address] Audrey Waite PA-C 420 [facility] [address]385, [facility] 603 [place], [place] 4648[address] 05/08/2024 1:30 PM CDT Office Visit [facility] [address] [place] [address] Lauren Claudio PA-C [address] [place] [address] Esha Grimm PA-C [address] [place] [address] 06/21/2024 2:00 PM MEDICAL CLAIMS REPRESENTATIVE Office Visit [facility] Neurology [address], [address] [place] [address] [place] [address] [address] Johnny Penn MD 6545 [place] [address] Scheduled Procedures Name Priority Associated Diagnoses Date/Ti sc ESOPHAGOGASTRODUODENOSCOPY Eosinophilic esophagitis Esophageal dysphagia documented as of this encounter Visit Diagnoses Not on filedocumented in this encounter Additional Health Concerns Infection Onset Date Last Indicated Resolved Time Rule Out COVID-19 12/26/2023 12/26/2023 12/26/2023 9:50 AM CDT Assessment Noted Time PHQ-9 Depression Total Score: 4 06/20/20 23 8:40 AM MEDICAL CLAIMS REPRESENTATIVE documented as of this encounter Care Teams Drill Sharpener Operator Relationship Specialty Start Date End Date Esha Grimm PA-C [id number] [place] [address] PCP - General Family Medicine 05/04/23 Diana Desir, [facility] 3033 [place] [address] Pharmacist Pharmacist 04/17/21 Rani Galaviz PA-C [address] [place] [address] [address] [place] [address] Physician Wine Merchant Dermatology 04/28/21 Tavia Wyatt MD [address] [place] [address] DR [facility] [address] Dermatology 07/14/21 Erica Farrell APRN PLUGGER MAN [address] [place] 725[address] Nurse Practitioner Cardiovascular Disease 09/09/21 Rich Barrett MD [address] [place] [address] 9A [place], [place] 223875 Physician Ophthalmology 01/21/22 Neil Kent MD 500 [place], [place] 905785 Dermatology 02/24/22 [facility] 3033 [place] [address] Assigned MTM Pharmacist 04/07/22 Livan Sharif MD [address] [place] 725[address] Cardiovascular Disease 05/14/22 Catherine Cm MD [address] [place] 007115 Cardiovascular Disease 07/21/22 Valery Veronica PA-C 909 [place], [place] 0[address] Physician Wine Merchant Dermatology 07/21/22 Brea Quinn APRN PLUGGER MAN 500 [place], [place] 017815 Nurse Practitioner Dermatology 09/21/22 Brea Quinn APRN PLUGGER MAN 6401 [place], [place] 071152 Assigned Surgical Provider 10/09/22 [place] [address] [address] [facility] 300 [place], [place] 582277 Assigned Musculoskeletal Provider 10/09/22 Alfonso Renteria MD [address] [facility] 200 [place] [address] Assigned Neuroscience Provider 04/02/23 Radha Lomeli APRN PLUGGER MAN 6405 [facility] [address] [place], [place] 976915 Assigned Heart and Vascular Provider 05/28/23 Jelena David OD 3305 [facility] [place] [address] Ophthalmology 06/15/23 Pao Joseph, VJ Personal Advocate & Liaison (PAL) Nurse 08/01/23 11/07/23 Esha Grimm PA-C [address] [place] [phone] Assigned PCP 07/16/23 Valery Veronica PA-C 9 [place] [address] Physician Wine Merchant Dermatology 09/19/23 Rey Tay MD 9 [place] [address] MD Gastroenterology 09/20/23 Rocky Zepeda DO 500 [place], [place] 058885 Physician Gastroenterology 09/20/23 Philip Dumont MD [address] [place] [address] Physician Ophthalmology 09/22/23 Meredith Carrera PA-C [address] [place] [address] Assigned Gastroenterology Provider 11/01/23 Neil Kent MD [address] [place] [address] Dermatology 11/02/23 [place] [address] [place] [address] Neurological Surgery 12/26/23 Audrey Waite PA-C 500 [place] [address] Physician Wine Merchant Dermatology 02/28/24 documented as of this encounter
--- OUTSIDE RECORDS SUMMARY | 2024-03-12 19:35 | XMS_ITS | Encounter Summary ---
Author Organization [facility] Address [address] [place] [address] Care Team Providers Care Base Ply Hand Name Role Phone Thang Diana [place] [facility] Unavailable Rain Galaviz PA-C Unavailable Tavia Wyatt MD Unavailable Unavailable Erica Farrell APRN CORN PRESS OPERATOR Unavailable Rich Barrett MD Unavailable Neil Kent MD Unavailable Diana Desir Stanislav [facility] Unavailable [phone] Livan Sharif MD Unavailable Catherine Cm MD Unavailable + Valery Veronica PA-C Unavailable [phone] Brea Quinn BUILDING SPECIALIST CORN PRESS OPERATOR Unavailable Brea Quinn BUILDING SPECIALIST CORN PRESS OPERATOR Unavailable Jose Francisco Johnson MD Unavailable Alfonso Renteria MD Unavailable + [phone] Esha Grimm PA-C Primary Care Provider [phone] Radha Lomeli BUILDING SPECIALIST CORN PRESS OPERATOR Unavailable [phone] Jelena David OD Unavailable Pao Joseph RN Unavailable Unavailable Esha Grimm Adam PA-C Unavailable [phone] Valery Veronica PA-C Unavailable [phone] Rey Tay MD Unavailable Rocky Zepeda DO Unavailable Philip Dumont MD Unavailable [phone] Meredith Carrera PA-C Unavailable [phone] Neil Kent MD Unavailable Juan Pablo Emmanuel MD Unavailable [phone] Audrey Waite PA-C Unavailable [phone] Encounter Details Date Type Department Care Team (Late st Contact Info) Description 08/31/2023 [facility] [address] [facility] [address] [place] [address] Amalia Reyes, VJ Social History [...] Recorded PHQ-2 Score 0 06/20/2023 [facility] - Occupational Stress Questionnaire [...] exercise at this level? 30 min 03/10/2023 [place] Depression Scale Answer Date Recorded [place] Depression Score 5 01/14/2021 Last EPDS Self [...] Description 03/26/2024 11:20 AM CDT Office Visit [facility] [address] [facility] 100 [place] [address] Ebony Cid, ARLENE CORN PRESS OPERATOR 500 [place] [address] 03/27/2024 11:00 AM CDT Office Visit [facility] [place] [address] [facility] [address] [place] [phone] Jelena David, [address] [facility] [place] [address] 04/19/2024 2:45 PM CDT Office Visit [facility] 830 [place] [phone] Audrey Waite PA-C 420 [facility] [address], [facility] 603 [place], [place] [address] 05/08/2024 1:30 PM CDT Office Visit [facility] [address] [place] [address] Lauren Claudio PA-C [address] [place] [address] Esha Grimm PA-C [address] [place] [address] 06/21/2024 2:00 PM SLUBBER OPERATOR Office Visit [facility] Neurology [address], [address] [place] [address] [place] [address] RA[address] [place] [address] Johnny Penn MD 6545 [place] [address] Scheduled Procedures Name Priority Associated Diagnoses Date/Ti nj ESOPHAGOGASTRODUODENOSCOPY Eosinophilic esophagitis Esophageal dysphagia documented as of this encounter Visit Diagnoses Not on filedocumented in this encounter Additional Health Concerns Infection Onset Date Last Indicated Resolved Time Rule Out COVID-19 12/26/2023 12/26/2023 12/26/2023 9:50 AM CDT Assessment Noted Time PHQ-9 Depression Total Score: 4 06/20/20 23 8:40 AM SLUBBER OPERATOR documented as of this encounter Care Teams Base Ply Hand Relationship Specialty Start Date End Date Esha Grimm PA-C [id number] [place] [address] PCP - General Family Medicine 05/04/23 Diana Desir, [facility] 30[address] [place] [address] Pharmacist Pharmacist 04/17/21 Rain Galaviz PA-C [address] [place] [address] [address] [place] [address] Physician Manager Ccu Dermatology 04/28/21 Tavia Wyatt MD [address] [place] [address] DR RA[address] Lara [facility] [address] Dermatology 07/14/21 Erica Farrell APRN CORN PRESS OPERATOR [address] [place] [address] Nurse Practitioner Cardiovascular Disease 09/09/21 Rich Barrett MD [address] [place] [address] [address] [place], [place] 183705 Physician Ophthalmology 01/21/22 Neil Kent MD 500 [place], [place] 260395 Dermatology 02/24/22 Diana Desir, [facility] [address] [place] [address] Assigned MTM Pharmacist 04/07/22 Livan Sharif MD [address] [place] 034705 Cardiovascular Disease 05/14/22 Catherine Cm MD [address] [place] 304395 Cardiovascular Disease 07/21/22 Valery Veronica PA-C 909 [place], [place] 433[address] Physician Manager Ccu Dermatology 07/21/22 Brea Quinn APRN CORN PRESS OPERATOR 500 [place], [place] 670925 Nurse Practitioner Dermatology 09/21/22 Brea Quinn APRN CORN PRESS OPERATOR 6401 [place], [place] 209852 Assigned Surgical Provider 10/09/22 [place] [address] [place], [place] 488457 Assigned Musculoskeletal Provider 10/09/22 Alfonso Renteria MD [address] [facility] 200 [place] [address] Assigned Neuroscience Provider 04/02/23 Radha Lomeli APRN CORN PRESS OPERATOR [address] [facility] [address] [place] 87[address]85 Assigned Heart and Vascular Provider 05/28/23 Jelena David OD [address] [facility] [place] [id number] Ophthalmology 06/15/23 Pao Joseph, VJ Personal Advocate & Liaison (PAL) Nurse 08/01/23 11/07/23 Esha Grimm PA-C [address] [place] [phone] Assigned PCP 07/16/23 Valery Veronica PA-C 9 [place] [address] Physician Manager Ccu Dermatology 09/19/23 Rey Tay MD 9 [place] [address] MD Gastroenterology 09/20/23 Rocky Zepeda DO [address] [place] [address] 208985 Physician Gastroenterology 09/20/23 Philip Dumont MD [address] [place] [address] 887495 Physician Ophthalmology 09/22/23 Meredith Carrera PA-C 9 [place] [address] Assigned Gastroenterology Provider 11/01/23 Neil Kent MD [address] [address] Dermatology 11/02/23 [place] [address] [place], [place] 170207 Neurological Surgery 12/26/23 Audrey Waite PA-C 500 [place] [address] Physician Manager Ccu Dermatology 02/28/24 documented as of this encounter
--- OUTSIDE RECORDS SUMMARY | 2024-03-12 19:35 | XMS_ITS | Encounter Summary ---
Author Organization [place] Address [address] [place] [address] Care Team Providers Care Knit Tubing Dyer Name Role Phone Thang Diana [place] [facility] Unavailable Rain Galaviz PA-C Unavailable Tavia Wyatt MD Unavailable Unavailable Erica Farrell APRN CLUBHOUSE MANAGER Unavailable Rich Barrett MD Unavailable Neil Kent MD Unavailable Diana Desir Stanislav [facility] Unavailable [phone] Livan Sharif MD Unavailable Catherine Cm MD Unavailable + Valery Veronica PA-C Unavailable [phone] Brea Quinn DAMPER WORKER CLUBHOUSE MANAGER Unavailable Brea Quinn DAMPER WORKER CLUBHOUSE MANAGER Unavailable [phone] Jose Francisco Johnson MD Unavailable Alfonso Renteria MD Unavailable + [phone] Esha Grimm PA-C Primary Care Provider [phone] Radha Lomeli DAMPER WORKER CLUBHOUSE MANAGER Unavailable [phone] FrankieJelena OD Unavailable Pao Joseph RN Unavailable Unavailable Alfa Eshalincoln DOWC Unavailable [phone] Valery VeronicaC Unavailable Rey Tay MD Unavailable Rocky Zepeda DO Unavailable Philip Dumont MD Unavailable [phone] Meredith Carrera PA-C Unavailable Neil Kent MD Unavailable Juan Pablo Emmanuel MD Unavailable Audrey Waite PA-C Unavailable [phone] Reason for Visit * Reason Onset Date Comments Medication Question 10/21/2023 omeprazole Encounter Details Date Type Department Care Team (Late st Contact Info) Description 10/21/2023 Telephone [facility] Gastroenterology Clinic [address] [place] [address] Meredith Carrera PA-C [address] [place] [address] Medication Question (omeprazole ) Social History [...] Answer Date Recorded PHQ-2 Score 0 10/25/2023 [facility] of Occupat [...] exercise at this level? 30 min 03/10/2023 [place] Depression Scale Answer Date Recorded [place] Depression Score 5 01/14/2021 Last EPDS Self [...] Mayra Rajput - 10/21/2023 4:42 PM CDT [facility] Call Center Phone Message May a detailed message be left on voicemail: yes Reason for Call: Other: Pt called in asking to speak to a nurse about omeprazole that she is on. Ptdeclined to schedule follow up until she speaks to someone from care team about the medication. Thank you. Action Taken: Message routed to: [facility] GASTRO[facility]OLOGY [facility]ULT [facility][[id number]] Travel Screening: Not Applicable documented in this encounter Plan of Treatment Upcoming Encounters Date Type Department Care Team (Late st Contact Info) Description 03/26/2024 11:20 AM CDT Office Visit [facility] Spine and Neurosurgery [address] [place] [address] Ebony Cid, DAMPER WORKER CLUBHOUSE MANAGER [address] [place], [place] [address] 03/27/2024 11:00 AM CDT Office Visit [facility] [place] [address] [place] [phone] Jelena David, OD [address] [facility] [address] [place] [id number] 04/19/2024 2:45 PM CDT Office [facility] 830 [place] [address] Audrey Waite PA-C [address] [facility] [address], [facility] 603 [place], [place] 361725 05/08/2024 1:30 PM CDT Office Visit [facility] [address] [place] [address] Lauren Claudio PA-C [address] [place], [place] [phone] Esha Grimm PA-C [address] [place] [address] 06/21/2024 2:00 PM SHOW HOST Office Visit [facility] Neurology [facility] - [place] [address] [facility], [address] [place] [address] [place] [address] [place] [address] Johnny Penn MD [address] [facility] [place] [address] Scheduled Procedures Name Priority Associated Diagnoses Date/Ti me ESOPHAGOGASTRODUODENOSCOPY Eosinophilic esophagitis Esophageal dysphagia documented as of this encounter Visit Diagnoses Not on filedocumented in this encounter Additional Health Concerns Infection Onset Date Last Indicated Resolved Time Rule Out COVID-19 12/26/2023 12/26/2023 12/26/2023 9:50 AM CDT Assessment Noted Time PHQ-9 Depression Total Score: 4 06/20/20 23 8:40 AM SHOW HOST documented as of this encounter Care Teams Knit Tubing Dyer Relationship Specialty Start Date End Date Esha Grimm PA-C [address] [place] [address] PCP - General Family Medicine 05/04/23 Diana Desir, [facility] [address] [place], [place] [address] Pharmacist Pharmacist 04/17/21 Rain Galaviz PA-C [address] [place] [place] [address] DR [address] [facility] [place] [address] Physician Fish Farmer Dermatology 04/28/21 Tavia Wyatt MD [address] [place] [place] [address] DR [address] [place] [address] Dermatology 07/14/21 Erica Farrell APRN CLUBHOUSE MANAGER [address] [facility] [address] [place], [place] 227615 Nurse Practitioner Cardiovascular Disease 09/09/21 Rich Barrett MD 516 [facility] 9A [place], [place] 214035 Physician Ophthalmology 01/21/22 Neil Kent MD 500 [place] [address] Dermatology 02/24/22 Diana Desir, [facility] 3033 [place] [address] Assigned [place] Pharmacist 04/07/22 Livan Sharif MD [address] [facility] [address] [facility]00 [place], [place] [address] Cardiovascular Disease 05/14/22 Catherine Cm MD [address] 230565 Cardiovascular Disease 07/21/22 Valery Veronica, PA-C 909 [place] [address] Physician Fish Farmer Dermatology 07/21/22 Brea Quinn APRN CLUBHOUSE MANAGER 500 [place] [address] Nurse Practitioner Dermatology 09/21/22 Brea Quinn APRN CLUBHOUSE MANAGER 6401 [place] [address] Assigned Surgical Provider 10/09/22 [place] [address] [address] Assigned Musculoskeletal Provider 10/09/22 Alfonso Renteria MD [address] [place] [address] Assigned Neuroscience Provider 04/02/23 Radha Lomeli APRN CLUBHOUSE MANAGER [address] [place] [address] Assigned Heart and Vascular Provider 05/28/23 Jelena David OD [address] [place] [address] MD Ophthalmology 06/15/23 Pao Joseph, VJ Personal Advocate & Liaison (PAL) Nurse 08/01/23 11/07/23 Esha Grimm PA-C [address] [place] [address] Assigned PCP 07/16/23 Valery Veronica PA-C [address] [place] [address] 592455 Physician Fish Farmer Dermatology 09/19/23 Rey Tay MD [address] [place] [address] 905665 Gastroenterology 09/20/23 Rocky Zepeda DO [address] [place] [address] 893245 Physician Gastroenterology 09/20/23 Philip Dumont MD [address] [place] [address] 689895 Physician Ophthalmology 09/22/23 Meredith Carrera PA-C 909 [place] [address] Assigned Gastroenterology Provider 11/01/23 Neil Kent MD [address] [address] Dermatology 11/02/23 [place] [address] [address] Neurological Surgery 12/26/23 Audrey Waite PAUcheC 500 [place] [address] Physician Fish Farmer Dermatology 02/28/24 documented as of this encounter
--- OUTSIDE RECORDS SUMMARY | 2024-03-12 19:36 | XMS_ITS | Encounter Summary ---
Author Organization [place] Address [address] [place] [address] Care Team Providers Care Hydrotel Operator Name Role Phone Thang Diana [place] [facility] Unavailable Rain Galaviz-C Unavailable Tavia Wyatt MD Unavailable Unavailable Erica Farrell APRN CLINCHING MACHINE OPERATOR Unavailable Rich Barrett MD Unavailable Neil Kent MD Unavailable Diana Desir [facility] Unavailable Livan Sharif MD Unavailable Catherine Cm MD Unavailable + Valery Veronica-C Unavailable [phone] Brea Quinn MEDICATION ASSISTANT CLINCHING MACHINE OPERATOR Unavailable Brea Quinn MEDICATION ASSISTANT CLINCHING MACHINE OPERATOR Unavailable [phone] Jose Francisco Johnson MD Unavailable Sydnie Martinez RN Unavailable Unavailable Alfonso Renteria MD Unavailable + [phone] Esha Grimm PA-C Primary Care Provider Cheng ToddC Unavailable Radha Lomeli APRN CLINCHING MACHINE OPERATOR Unavailable [phone] Jelena David OD Unavailable [phone] Pao Joseph RN Unavailable Unavailable Esha GrimmC Unavailable [phone] Valery Veronica PA-C Unavailable Rey Tay MD Unavailable Rocky Zepeda DO Unavailable Philip Dumont MD Unavailable Meredith Carrera PA-C Unavailable Neil Kent MD Unavailable Juan Pablo Emmanuel MD Unavailable Audrey Waite-C Unavailable [phone] Encounter Details Date Type Department Care Team (Late st Contact Info) Description 07/06/2023 [facility] [address] [place] [address] Esha Grimm PA-C [id number] [place] [address] Social History Tobacco Use Types Packs/Day [...] 03/10/2023 How often do you attend [facility] or gnosticism services? 1 to 4 times [...] exercise at this level? 30 min 03/10/2023 [place] Depression Scale Answer Date Recorded [place] Depression Score 5 01/14/2021 Last EPDS Self [...] in an overnight usp, or couch-surfing.) Yes 06/20/2023 Are you worried [...] [facility] [address] [facility] [address] [place] [address] Ebony Cid, MEDICATION ASSISTANT CLINCHING MACHINE OPERATOR 500 [place] [address] 03/27/2024 11:00 AM CDT Office Visit [facility] [place] [address] [place] [address] Jelena David, [place] [address] [facility] [place] [address] 04/19/2024 2:45 PM CDT Office Visit [facility] Gloria Alvarenga 830 [place] [address] Audrey Waite PA-C 420 [facility] [address], [facility] 603 [place], [place] 5845[address] 05/08/2024 1:30 PM CDT Office Visit [facility] [address] [place] [address] Lauren Claudio PA-C [address] [place] [address] Esha Grimm PA-C [id number] [place] [address] 06/21/2024 2:00 PM PROTOTYPE SPECIAL BUILD Office Visit [facility] Neurology [facility] [address], [address] [place] [address] [place] [address] [place] [address] Johnny Penn MD 6545 [place] [address] Scheduled Procedures Name Priority Associated Diagnoses Date/Ti ms ESOPHAGOGASTRODUODENOSCOPY Eosinophilic esophagitis Esophageal dysphagia documented as of this encounter Visit Diagnoses Not on filedocumented in this encounter Additional Health Concerns Infection Onset Date Last Indicated Resolved Time Rule Out COVID-19 12/26/2023 12/26/2023 12/26/2023 9:50 AM CDT Assessment Noted Time PHQ-9 Depression Total Score: 4 06/20/20 23 8:40 AM PROTOTYPE SPECIAL BUILD documented as of this encounter Care Teams Hydrotel Operator Relationship Specialty Start Date End Date Esha Grimm PA-C [id number] [place] [phone] PCP - General Family Medicine 05/04/23 Diana Desir, [facility] [address] [place] [address] Pharmacist Pharmacist 04/17/21 Rain Galaviz PA-C [address] [place] [address] [address] [place] [address] Physician Showroom Sales Assistant Dermatology 04/28/21 Tavia Wyatt MD [address] [place] [address] [place] [address] Dermatology 07/14/21 Erica Farrell APRN CLINCHING MACHINE OPERATOR [address] [place] [address] Nurse Practitioner Cardiovascular Disease 09/09/21 Rich Barrett MD [address] [place] [address] 129915 Physician Ophthalmology 01/21/22 Neil Kent MD [address] [place] [address] 320925 Dermatology 02/24/22 Diana Desir, [facility] [address] [place] [address] Assigned MTM Pharmacist 04/07/22 Livan Sharif MD [address] [place] [address] [place] 169805 Cardiovascular Disease 05/14/22 Catherine Cm MD 6405 [facility] [address] [place], [place] 4[address] Cardiovascular Disease 07/21/22 Valery Veronica PA-C 909 [place], [place] 589[address] Physician Showroom Sales Assistant Dermatology 07/21/22 Brea Quinn APRN CLINCHING MACHINE OPERATOR 500 [place], [place] 146135 Nurse Practitioner Dermatology 09/21/22 Brea Quinn APRN CLINCHING MACHINE OPERATOR 6401 [place], [place] 006782 Assigned Surgical Provider 10/09/22 [place] [address] [facility] 300 [place], [place] 513447 Assigned Musculoskeletal Provider 10/09/22 Sydnie Martinez RN Personal Advocate & Liaison (PAL) Family Medicine 03/28/23 07/31/23 Alfonso Renteria MD 5775 [facility] 200 [place], [place] 231026 Assigned Neuroscience Provider 04/02/23 Cheng Todd PA-C [address] [place] [address] Assigned PCP 04/30/23 07/15/23 Radha Lomeli APRN CLINCHING MACHINE OPERATOR [address] [place] [address] [place] [address] Assigned Heart and Vascular Provider 05/28/23 Jelena David OD [address] [place] [address] MD Ophthalmology 06/15/23 Pao Joseph, VJ Personal Advocate & Liaison (PAL) Nurse 08/01/23 11/07/23 Esha Grimm PA-C [address] [place] [phone] Assigned PCP 07/16/23 Valery Veronica PA-C [address] [place] [address] 769695 Physician Showroom Sales Assistant Dermatology 09/19/23 Rey Tay MD [address] [place] [address] 289875 Gastroenterology 09/20/23 Rocky Zepeda DO [address] [place] [address] 386105 Physician Gastroenterology 09/20/23 Philip Dumont MD [address] [place] [address] 997705 Physician Ophthalmology 09/22/23 Meredith Carrera PA-C [address] [place] [address] 495385 Assigned Gastroenterology Provider 11/01/23 Neil Kent MD [address] [place] [address] Dermatology 11/02/23 [place] [address] [place] [address] Neurological Surgery 12/26/23 Audrey Waite, PAUcheC 500 [place] [address] Physician Showroom Sales Assistant Dermatology 02/28/24 documented as of this encounter
--- OUTSIDE RECORDS SUMMARY | 2024-03-12 19:36 | XMS_ITS | Encounter Summary ---
Author Organization [facility] Address [address] [place] [address] Care Team Providers Care Supervisor Denture Department Name Role Phone Thang Diana [place] [facility] Unavailable Rain Galaviz-C Unavailable Tavia Wyatt MD Unavailable Unavailable Erica Farrell APRN FLATWORK TIER Unavailable Rich Barrett MD Unavailable Neil Kent MD Unavailable Diana Desir [facility] Unavailable Livan Sharif MD Unavailable Catherine Cm MD Unavailable + Valery Veronica-C Unavailable [phone] Brea Quinn LAUNDROMAT WORKER FLATWORK TIER Unavailable Brea Quinn LAUNDROMAT WORKER FLATWORK TIER Unavailable Jose Francisco Johnson MD Unavailable Sydnie Martinez RN Unavailable Unavailable Alfonso Renteria MD Unavailable + [phone] Esha Grimm PA-C Primary Care Provider Cheng Todd-C Unavailable Radha Lomeli APRN FLATWORK TIER Unavailable [phone] Jelena David OD Unavailable Pao Joseph RN Unavailable Unavailable Esha GrimmC Unavailable [phone] Valery Veronica PA-C Unavailable [phone] Rey Tay MD Unavailable Rocyk Zepeda DO Unavailable Philip Dumont MD Unavailable [phone] Meredith Carrera PA-C Unavailable Neil Kent MD Unavailable Juan Pablo Emmanuel MD Unavailable Audrey Waite PA-C Unavailable [phone] Reason for Visit * Reason Onset Date Comments Appointment 06/17/2023 Encounter Details Date Type Department Care Team (Late st Contact Info) Description 06/17/[address] [address] Esha Grimm PA-C [id number] [place] [address] Appointment Social History Tobacco Use Types [...] often [facility]? 1 to 4 [...] 06/20/2023 [facility] - Occupational Stress Questionnaire Answer Date [...] exercise at this level? 30 min 03/10/2023 [place] Depression Scale Answer Date Recorded [place] Depression Score 5 01/14/2021 Last EPDS Self [...] an overnight nursing home, or couch-surfing.) Yes 06/20/2023 Are you worried [...] they are all full today Lulu Day/ Delivery Helper STICS PROGRAM MANAGER * Telephone Encounter - Rosio Eller - [...] we send this information to you in [employer] or would you prefer to receive a phone call?: Patient would prefer a phone call Okay to leave a detailed message?: Yes at Home number on file [phone] (home) Call taken on 06/17/2023 at 7:13 AM by Rosio Eller STICS PROGRAM MANAGER documented in this encounter Plan of Treatment Upcoming Encounters Date Type Department Care Team (Late st Contact Info) Description 03/26/2024 11:20 AM CDT Office Visit [facility] Spine and Neurosurgery [address] [facility] [address] [place] [address] Ebony Cid, LAUNDROMAT WORKER [facility] 500 [place], [place] [address] 03/27/2024 11:00 AM CDT Office [facility] [address] [facility] [address] [place] [address] Jelena David, [address] [facility] [place] [address] 04/19/2024 2:45 PM CDT Office Visit [facility] 830 [place] [phone] Audrey Waite PA-C 420 [facility] [address], [facility] 603 [place], [place] [address] 05/08/2024 1:30 PM CDT Office Visit [facility] [address] [place] [address] Lauren Claudio PA-C [address] [place] [address] Esha Grimm PA-C [address] [place] [address] 06/21/2024 2:00 PM LOGISTICS PROGRAM MANAGER Office Visit [facility] Neurology Clinics - [place] [address] [facility], [address] [place] [address] [place] [address] [place], [place] [phone] Johnny Penn MD [address] [facility] [place] [id number] Scheduled Procedures Name Priority Associated Diagnoses Date/Ti me ESOPHAGOGASTRODUODENOSCOPY Eosinophilic esophagitis Esophageal dysphagia documented as of this encounter Visit Diagnoses Not on filedocumented in this encounter Additional Health Concerns Infection Onset Date Last Indicated Resolved Time Rule Out COVID-19 12/26/2023 12/26/2023 12/26/2023 9:50 AM CDT Assessment Noted Time PHQ-9 Depression Total Score: 6 05/16/20 9:29 AM LOGISTICS PROGRAM MANAGER documented as of this encounter Care Teams Supervisor Denture Department Relationship Specialty Start Date End Date Esha Grimm PA-C [address] [place] [address] PCP - General Family Medicine 05/04/23 Diana Desir, [facility] [address] [place] [address] Pharmacist Pharmacist 04/17/21 Rain Galaviz PA-C [address] [place] [address] [address] [place] [address] Physician Bench Repair Technician Dermatology 04/28/21 Tavia Wyatt MD [address] [place] [address] [address] [place] [address] Dermatology 07/14/21 Erica Farrell APRN FLATWORK TIER [address] [place], [place] [address] Nurse Practitioner Cardiovascular Disease 09/09/21 Rich Barrett MD [address] [facility] 9A [place], [place] [address] Physician Ophthalmology 01/21/22 Neil Kent MD 500 [place], [place] 7[address]25 Dermatology 02/24/22 Diana Desir, [facility] 3033 [place], [place] [address] Assigned [place] Pharmacist 04/07/22 Livan Sharif MD [address], [facility]00 [place], [place] 46[address] Cardiovascular Disease 05/14/22 Catherine Cm MD [address] [address] Cardiovascular Disease 07/21/22 Valery Veronica PAUcheC 909 [place], [place] [address] Physician Bench Repair Technician Dermatology 07/21/22 Brea Quinn APRN FLATWORK TIER 500 [place], [place] 8905[address] Nurse Practitioner Dermatology 09/21/22 Brea Quinn, ARLENE FLATWORK TIER 6401 [facility] [place] [facility] [place] [address] Assigned Surgical Provider 10/09/22 [place] [address] [facility] 300 [place] [address] Assigned Musculoskeletal Provider 10/09/22 Sydnie Martinez RN Personal Advocate & Liaison (PAL) Family Medicine 03/28/23 07/31/23 Alfonso Renteria MD 5775 [facility] 200 [place] [address] Assigned Neuroscience Provider 04/02/23 Cheng Todd PA-C [address] [place] [address] Assigned PCP 04/30/23 07/15/23 Radha Lomeli APRN FLATWORK TIER [address] [facility] [address] [place] [address] Assigned Heart and Vascular Provider 05/28/23 Jelena David OD [address] [facility] [place] [address] Ophthalmology 06/15/23 Pao Joseph, VJ Personal Advocate & Liaison (PAL) Nurse 08/01/23 11/07/23 Esha Grimm PA-C [address] [place] [address] Assigned PCP 07/16/23 Valery Veronica PA-C [address] [place] [address] Physician Bench Repair Technician Dermatology 09/19/23 Rey Tay MD 9 [place] [address] MD Gastroenterology 09/20/23 Rocky Zepeda DO [address] [place] [address] Physician Gastroenterology 09/20/23 Philip Dumont MD [address] [place] [address] Physician Ophthalmology 09/22/23 Meredith Carrera PA-C [address] [place] [address] Assigned Gastroenterology Provider 11/01/23 Neil Kent MD [address] [address] Dermatology 11/02/23 [place] [address] [place] [address] Neurological Surgery 12/26/23 Audrey Waite PA-C [address] [place] [address] Physician Bench Repair Technician Dermatology 02/28/24 documented as of this encounter
--- OUTSIDE RECORDS SUMMARY | 2024-03-12 19:36 | XMS_ITS | Encounter Summary ---
Author Organization [facility] Address [address] [place] [address] Care Team Providers Care Manager Transmission Name Role Phone ThangKendrickDiana T [facility] Unavailable [phone] Rain Galaviz-C Unavailable Tavia Wyatt MD Unavailable Unavailable Erica Farrell CONGREGATIONAL CARE PASTOR SINGING WAITER OR WAITRESS Unavailable Rich Barrett MD Unavailable Neil Kent MD Unavailable Diana Desir [facility] Unavailable Livan Sharif MD Unavailable Catherine Cm MD Unavailable + Valery Veronica-C Unavailable [phone] Brea Quinn CONGREGATIONAL CARE PASTOR SINGING WAITER OR WAITRESS Unavailable Brea Quinn CONGREGATIONAL CARE PASTOR SINGING WAITER OR WAITRESS Unavailable Jose Francisco Johnson MD Unavailable Sydnie Martinez RN Unavailable Unavailable Alfonso Renteria MD Unavailable + [phone] Esha Grimm PA-C Primary Care Provider Radha Lomeli CONGREGATIONAL CARE PASTOR SINGING WAITER OR WAITRESS Unavailable Jelena David OD Unavailable Pao Joseph RN Unavailable Unavailable Wicho Grimmlincoln Medina PA-C Unavailable [phone] JeremíasValery PA-C Unavailable [phone] Rey Tay MD Unavailable Rokcy Zepeda DO Unavailable Philip Dumont MD Unavailable [phone] Meredith Carrera PA-C Unavailable [phone] Neil Kent MD Unavailable Juan Pablo Emmanuel MD Unavailable [phone] Audrey Waite PA-C Unavailable [phone] Encounter Details Date Type Department Care Team (Late st Contact Info) Description 07/27/2023 MyC Medical Advice [address] [address] [facility] 3033 [place] [address] Social History Tobacco Use Types Packs/Day Years [...] Answer Date Recorded PHQ-2 Score 0 06/20/2023 [facility] - Occupational Stress Questionnaire Answer [...] exercise at this level? 30 min 03/10/2023 [place] Depression Scale Answer Date Recorded [place] Depression Score 5 01/14/2021 Last EPDS Self [...] Description 03/26/2024 11:20 AM CDT Office Visit [facility] Spine and Neurosurgery 1747 [facility] 100 [place] [address] Ebony Cid, CONGREGATIONAL CARE PASTOR SINGING WAITER OR WAITRESS 500 [place] [address] 03/27/2024 11:00 AM CDT Office Visit [facility] [place] [address] [facility] [address] [place] [phone] Jelena David, OD 3305 [facility] [place] [address] 04/19/2024 2:45 PM CDT Office Visit [facility] 830 [place] [phone] Audrey Waite PA-C [address] [place] [facility] [address], [facility] 603 [place] [address] 05/08/2024 1:30 PM CDT Office Visit [facility] [address] [place] [address] Lauren Claudio PA-C [address] [place] [address] Esha Grimm PA-C [address] [place] [address] 06/21/2024 2:00 PM CLAY ARTIST Office Visit [facility] Neurology [address], [address] [place] [address] [place] [address] [place] [address] Johnny Penn MD 6501 [place] [address] Scheduled Procedures Name Priority Associated Diagnoses Date/Ti or ESOPHAGOGASTRODUODENOSCOPY Eosinophilic esophagitis Esophageal dysphagia documented as of this encounter Visit Diagnoses Not on filedocumented in this encounter Additional Health Concerns Infection Onset Date Last Indicated Resolved Time Rule Out COVID-19 12/26/2023 12/26/2023 12/26/2023 9:50 AM CDT Assessment Noted Time PHQ-9 Depression Total Score: 4 06/20/20 23 8:40 AM CLAY ARTIST documented as of this encounter Care Teams Manager Transmission Relationship Specialty Start Date End Date Esha Grimm PA-C [id number] [place] [address] PCP - General Family Medicine 05/04/23 Diana Desir, [facility] [address] [place] [address] Pharmacist Pharmacist 04/17/21 Rain Galaviz PA-C [address] [place] [address] [address] [place] [address] Physician Customer Service Operator Dermatology 04/28/21 Tavia Wyatt MD [address] [place] [address] [place] [address] Dermatology 07/14/21 Erica Farrell APRN SINGING WAITER OR WAITRESS [address] [place] [address] Nurse Practitioner Cardiovascular Disease 09/09/21 Rich Barrett MD 516 [facility], [facility] 9A [place], [place] 3[address] Physician Ophthalmology 01/21/22 Neil Kent MD 500 [place], [place] [address] Dermatology 02/24/22 Diana Desir, [facility] [address] [place] [address] Assigned MTM Pharmacist 04/07/22 Livan Sharif MD [address] [place] [address] Cardiovascular Disease 05/14/22 Catherine Cm MD [address] [facility] [address] [place] [address] Cardiovascular Disease 07/21/22 Valery Veronica, PAUcheC 909 [place] [address] Physician Customer Service Operator Dermatology 07/21/22 Brea Quinn APRN SINGING WAITER OR WAITRESS 500 [place] [address] Nurse Practitioner Dermatology 09/21/22 Brea Quinn APRN SINGING WAITER OR WAITRESS 6401 [place] [address] Assigned Surgical Provider 10/09/22 [place] [address] [place] [address] Assigned Musculoskeletal Provider 10/09/22 Sydnie Martinez RN Personal Advocate & Liaison (PAL) Family Medicine 03/28/23 07/31/23 Alfonso Renteria MD 5775 [facility] 200 [place], [place] 3474[address] Assigned Neuroscience Provider 04/02/23 Radha Lomeli APRN SINGING WAITER OR WAITRESS [address] [place] 8824500 [place] 281395 Assigned Heart and Vascular Provider 05/28/23 Jelena David OD [address] [facility] [place] [address] MD Ophthalmology 06/15/23 Pao Joseph, RN Personal Advocate & Liaison (PAL) Nurse 08/01/23 11/07/23 Esha Grimm PA-C [address] [place] [address] Assigned PCP 07/16/23 Valery Veronica PA-C [address] [place] [address] Physician Customer Service Operator Dermatology 09/19/23 Rey Tay MD [address] [place] [address] 617925 Gastroenterology 09/20/23 Rocky Zepeda DO [address] [place] [address] Physician Gastroenterology 09/20/23 Philip Dumont MD [address] [place] [address] 174975 Physician Ophthalmology 09/22/23 Meredith Carrera PA-C [address] [place] [address] 684195 Assigned Gastroenterology Provider 11/01/23 Neil Kent MD [address] 855[address] Dermatology 11/02/23 [place] [address] [place] [address] Neurological Surgery 12/26/23 Audrey Waite PA-C 500 [place] [address] Physician Customer Service Operator Dermatology 02/28/24 documented as of this encounter
--- OUTSIDE RECORDS SUMMARY | 2024-03-12 19:36 | XMS_ITS | Encounter Summary ---
Author Organization [facility] Address [address] [place] [address] Care Team Providers Care Solid Surface Fabricator Name Role Phone Thang Diana [place] [facility] Unavailable Rain Galaviz PA-C Unavailable [phone] Tavia Wyatt MD Unavailable Unavailable Erica Farrell APRN ROTARY DRILLER HELPER Unavailable Rich Barrett MD Unavailable Neil Kent MD Unavailable Diana Desir Stan[place]av [facility] Unavailable [phone] Livan Sharif MD Unavailable Catheirne Cm MD Unavailable + Valery Veronica PA-C Unavailable [phone] Brea Quinn WINE STEWARD/STEWARDESS ROTARY DRILLER HELPER Unavailable Brea Quinn WINE STEWARD/STEWARDESS ROTARY DRILLER HELPER Unavailable Jose Francisco Johnson MD Unavailable Alfonso Renteria MD Unavailable + [phone] Esha Grimm PA-C Primary Care Provider Radha Lomeli WINE STEWARD/STEWARDESS ROTARY DRILLER HELPER Unavailable [phone] FrankieJelena OD Unavailable Pao Joseph RN Unavailable Unavailable Esha GrimmC Unavailable [phone] Valery Veronica PA-C Unavailable [phone] Rey Tay MD Unavailable Rocky Zepeda DO Unavailable Philip Dumont MD Unavailable [phone] Meredith CarreraC Unavailable [phone] Neil Kent MD Unavailable Juan Pablo Emmanuel MD Unavailable Audrey Waite-C Unavailable [phone] Reason for Visit * Reason Onset Date Comments Call Back 08/01/2023 Encounter Details Date Type Department Care Team (Late st Contact Info) Description 08/01/2023 Telephone [facility] [address] [place] [address] Esha Grimm PA-C [address] [place] [address] Call Back Social History Tobacco Use [...] Score 0 06/20/2023 [facility] [...] Grimm PA-C on 08/02/2023 at 7:49 AM RVISOR COREMAKER * Telephone Encounter - Debbie Shahid - [...] we send this information to you in [employer] or would you prefer to receive a phone call?: No preference Okay to leave a detailed message?: Yes at Home number on file [phone] (home) RVISOR COREMAKER documented in this encounter Plan of Treatment Upcoming Encounters Date Type Department Care Team (Late st Contact Info) Description 03/26/2024 11:20 AM CDT Office Visit [facility] Spine and Neurosurgery 1747 [facility] 100 [place] [address] Ebony Cid APRN [facility] 500 [place], [place] [address] 03/27/2024 11:00 AM CDT Office Visit [facility] 3305 [facility] [address] [place] [phone] Jelena David, [address] [facility] [place] [address] 04/19/2024 2:45 PM CDT Office Visit [facility] 830 [place] [address] Audrey Waite PA-C [address] [place] [address] [address], [facility] 603 [place], [place] [address] 05/08/2024 1:30 PM CDT Office Visit [facility] [address] [place] [phone] Lauren Claudio PA-C [address] [place], [place] [phone] Esha Grimm PA-C [address] [place] [address] 06/21/2024 2:00 PM SUPERVISOR COREMAKER Office Visit [facility] Neurology Clinics [facility] 6545 [facility], [address] [place] [phone] [place] [address] [place], [place] [address] Johnny Penn MD [address] [place] [id number] Scheduled Procedures Name Priority Associated Diagnoses Date/Ti me ESOPHAGOGASTRODUODENOSCOPY Eosinophilic esophagitis Esophageal dysphagia documented as of this encounter Visit Diagnoses Not on filedocumented in this encounter Additional Health Concerns Infection Onset Date Last Indicated Resolved Time Rule Out COVID-19 12/26/2023 12/26/2023 12/26/2023 9:50 AM CDT Assessment Noted Time PHQ-9 Depression Total Score: 4 06/20/20 23 8:40 AM SUPERVISOR COREMAKER documented as of this encounter Care Teams Solid Surface Fabricator Relationship Specialty Start Date End Date Esha Grimm PA-C [address] [place] [phone] PCP - General Family Medicine 05/04/23 Diana Desir, [facility] 3033 [place] [address] Pharmacist Pharmacist 04/17/21 Rani Galaviz PA-C [address] [place] [address] [address] [place] [address] Physician Orchard Pruner Dermatology 04/28/21 Tavia Wyatt MD [address] [place] [address] [address] [place] [address] Dermatology 07/14/21 Erica Farrell APRN ROTARY DRILLER HELPER [address] [place], [place] 487[address] Nurse Practitioner Cardiovascular Disease 09/09/21 Rich Barrett MD 516 [facility] 9A [place] [address] Physician Ophthalmology 01/21/22 Neil Kent MD 500 [place] [address] Dermatology 02/24/22 Diana Desir, [facility] 3033 [place], [place] 4826[address] Assigned MTM Pharmacist 04/07/22 Livan Sharif MD [address] [place], [place] 9[address] Cardiovascular Disease 05/14/22 Catherine mC MD [address] 349985 Cardiovascular Disease 07/21/22 Valery Veronica, PA-C 909 [place], [place] 64[address]55 Physician Orchard Pruner Dermatology 07/21/22 Brea Quinn APRN ROTARY DRILLER HELPER 500 [place], [place] [address] Nurse Practitioner Dermatology 09/21/22 Brea Quinn APRN ROTARY DRILLER HELPER 6401 [facility] [place] [address] Assigned Surgical Provider 10/09/22 [place] [address] [address] [facility] 300 [place] [address] Assigned Musculoskeletal Provider 10/09/22 Alfonso Renteria MD [address] [facility] 200 [place], [place] [address] Assigned Neuroscience Provider 04/02/23 Radha Lomeli APRN ROTARY DRILLER HELPER 6405 [facility] [address] [place] 2[address]95 Assigned Heart and Vascular Provider 05/28/23 Jelena David OD [address] [facility] [address] Ophthalmology 06/15/23 Pao Joseph, VJ Personal Advocate & Liaison (PAL) Nurse 08/01/23 11/07/23 Esha Grimm PA-C [address] [place] [address] Assigned PCP 07/16/23 Valery Veronica PA-C [address] [place] [address] Physician Orchard Pruner Dermatology 09/19/23 Rey Tay MD 9 [place], [place] [address] Gastroenterology 09/20/23 Rocky Zepeda DO 500 [place] [address] Physician Gastroenterology 09/20/23 Philip Dumont MD 516 [place] [address] Physician Ophthalmology 09/22/23 Meredith Carrera PA-C [address] [place] [address] 869815 Assigned Gastroenterology Provider 11/01/23 Neil Kent MD [address] 898870 Dermatology 11/02/23 [place] [address] 278747 Neurological Surgery 12/26/23 Audrey Waite PA-C 500 [place], [place] 04[address]35 Physician Orchard Pruner Dermatology 02/28/24 documented as of this encounter
--- OUTSIDE RECORDS SUMMARY | 2024-03-12 19:36 | XMS_ITS | Encounter Summary ---
Author Organization [facility] Address [address] [place] [address] Care Team Providers Care Director Project Management Name Role Phone Thang Diana [place] [facility] Unavailable Rain Galaviz-C Unavailable Tavia Wyatt MD Unavailable Unavailable Erica Farrell APRN CASE INVESTIGATOR Unavailable Rich Barrett MD Unavailable Neil Kent MD Unavailable Diana Desir [facility] Unavailable Livan Sharif MD Unavailable Catherine Cm MD Unavailable + Valery Veronica-C Unavailable [phone] Brea Quinn SEAT BUILDER CASE INVESTIGATOR Unavailable Brea Quinn SEAT BUILDER CASE INVESTIGATOR Unavailable Jose Francisco Johnson MD Unavailable Sydnie Martinez RN Unavailable Unavailable Alfonso Renteria MD Unavailable + [phone] Esha Grimm PA-C Primary Care Provider [phone] Cheng Todd PA-C Unavailable Radha Lomeli APRN CASE INVESTIGATOR Unavailable Jelena David OD Unavailable [phone] Pao Joseph RN Unavailable Unavailable Alfa Esha M PA-C Unavailable [phone] Valery Veronica PA-C Unavailable [phone] Rey Tay MD Unavailable Rocky Zepeda DO Unavailable Philip Dumont MD Unavailable Meredith Carrera PA-C Unavailable [phone] Neil Kent MD Unavailable Juan Pablo Emmanuel MD Unavailable [phone] Audrey Waite PA-C Unavailable Encounter Details Date Type Department Care Team (Late st Contact Info) Description 06/17/2023 MyC Medical Advice M Physicians [facility] [address] [place], [address] [place] [address] Alfonso Renteria MD 5731 [facility] [address] 200 [place] [address] Social History Tobacco Use Types [...] often do you attend [facility] or congregational services? 1 to 4 times [...] Date Recorded PHQ-2 Score 0 06/20/2023 [facility] of Occupat [...] exercise at this level? 30 min 03/10/2023 Rockledge Depression Scale Answer Date Recorded Rockledge Depression Score 5 01/14/2021 Last EPDS Self [...] calling to follow up on the below [employer] message. Patient continues to have a lot of dizzyness and neck pain. ING MACHINE OPERATOR documented in this encounter Plan of Treatment Upcoming Encounters Date Type Department Care Team (Late st Contact Info) Description 03/26/2024 11:20 AM CDT Office Visit [facility] Spine and Neurosurgery [address] [place] [address] Ebony Cid, SEAT BUILDER [facility] [address] [place] [address] 03/27/2024 11:00 AM CDT Office Visit [facility] Monserrat [address] [place] [phone] Jelena David, 3305 [facility] [place] [address] 04/19/2024 2:45 PM CDT Office Visit [facility] 830 [place] [phone] Audrey Waite PA-C 420 [facility] [address]385, [facility] 603 [place], [place] 293785 05/08/2024 1:30 PM CDT Office Visit [facility] 35[address] [place] [phone] Lauren Claudio PA-C [address]254 [place], [place] [phone] Esha Grimm PA-C [address] [place] [address] 06/21/2024 2:00 PM PILLING MACHINE OPERATOR Office Visit [facility] Neurology [facility] [address] [place] [address], [address] [place] [address] [place] [address] [place] [id number] Johnny Penn MD 6546 [facility] [place] [id number] Scheduled Procedures Name Priority Associated Diagnoses Date/Ti me ESOPHAGOGASTRODUODENOSCOPY Eosinophilic esophagitis Esophageal dysphagia documented as of this encounter Visit Diagnoses Not on filedocumented in this encounter Additional Health Concerns Infection Onset Date Last Indicated Resolved Time Rule Out COVID-19 12/26/2023 12/26/2023 12/26/2023 9:50 AM CDT Assessment Noted Time PHQ-9 Depression Total Score: 6 05/16/20 23 9:29 AM PILLING MACHINE OPERATOR documented as of this encounter Care Teams Director Project Management Relationship Specialty Start Date End Date Esha Grimm PA-C [address] [facility] [place] [address] PCP - General Family Medicine 05/04/23 Diana Desir, [facility] [address] [place], [place] 74[address] Pharmacist Pharmacist 04/17/21 Rain Galaviz PA-C [address] [place] [address] [address] [place] [address] Physician Claim Auditor Dermatology 04/28/21 Tavia Wyatt MD [address] [place] [address] [facility] [place] [place] [address] Dermatology 07/14/21 Erica Farrell APRN CASE INVESTIGATOR 6405 [facility] [address] [place] [address] Nurse Practitioner Cardiovascular Disease 09/09/21 Rich Barrett MD 516 [facility] 9A [place], [place] 531485 Physician Ophthalmology 01/21/22 Neil Kent MD [address] [place], [place] 415265 Dermatology 02/24/22 Diana Desir, [facility] 3033 [place] [address] Assigned MTM Pharmacist 04/07/22 Livan Sharif MD [address], [facility] [address] [place] [address] Cardiovascular Disease 05/14/22 Catherine Cm MD [address] [facility] [address] [place], [place] 912715 Cardiovascular Disease 07/21/22 Valery Veronica, PA-C [address] [place] [address] 616225 Physician Claim Auditor Dermatology 07/21/22 Brea Quinn APRN CASE INVESTIGATOR 500 [place], [place] 508105 Nurse Practitioner Dermatology 09/21/22 Brea Quinn APRN CASE INVESTIGATOR [address] [place] [address] Assigned Surgical Provider 10/09/22 [place] [address] [address] [facility] 300 [place] [address] Assigned Musculoskeletal Provider 10/09/22 Sydnie Martinez RN Personal Advocate & Liaison (PAL) Family Medicine 03/28/23 07/31/23 Alfonso Renteria MD 5775 [facility] 200 [place], [place] 510676 Assigned Neuroscience Provider 04/02/23 Cheng Todd PA-C [address] [place] [address] [phone] Assigned PCP 04/30/23 07/15/23 Radha Lomeli APRN CASE INVESTIGATOR 6405 [facility] [address] [place], [place] 308665 Assigned Heart and Vascular Provider 05/28/23 Jelena David OD [address] [facility] [address] [place] [phone] MD Ophthalmology 06/15/23 Pao Joseph, VJ Personal Advocate & Liaison (PAL) Nurse 08/01/23 11/07/23 Esha Grimm PA-C [address] [place] [address] Assigned PCP 07/16/23 Valery Veronica PA-C [address] [place] [address] 484625 Physician Claim Auditor Dermatology 09/19/23 Rey Tay MD [address] [place] [address] 786755 Gastroenterology 09/20/23 Rocky Zepeda DO [address] [place] [address] [phone] Physician Gastroenterology 09/20/23 Philip Dumont MD [address] [place] [address] 821035 Physician Ophthalmology 09/22/23 Meredith Carrera PA-C [address] [place] [address] 111435 Assigned Gastroenterology Provider 11/01/23 Neil Kent MD [address] [address] Dermatology 11/02/23 [place] [address] 433[address] Neurological Surgery 12/26/23 Audrey Waite PA-C 500 [place], [place] 580715 Physician Claim Auditor Dermatology 02/28/24 documented as of this encounter
--- OUTSIDE RECORDS SUMMARY | 2024-03-12 19:36 | XMS_ITS | Encounter Summary ---
Author Organization [facility] Address [address] [place] [address] Care Team Providers Care Bone Glue Maker Name Role Phone Thang Diana [place] [facility] Unavailable Rain Galaviz PA-C Unavailable [phone] Tavia Wyatt MD Unavailable Unavailable Erica Farrell APRN DIORAMIST Unavailable Rich Barrett MD Unavailable Neil Kent MD Unavailable Diana Desir Stan[place] [facility] Unavailable [phone] Livan Sharif MD Unavailable Catherine Cm MD Unavailable + Valery Veronica PA-C Unavailable [phone] Brea Quinn TWISTING PRESS OPERATOR DIORAMIST Unavailable Brea Quinn TWISTING PRESS OPERATOR DIORAMIST Unavailable Jose Francisco Johnson MD Unavailable Alfonso Renteria MD Unavailable + [phone] Esha Grimm PA-C Primary Care Provider [phone] Radha Lomeli TWISTING PRESS OPERATOR DIORAMIST Unavailable [phone] Jelena David OD Unavailable [phone] Pao Joseph RN Unavailable Unavailable Esha GrimmC Unavailable [phone] Valery Veronica PA-C Unavailable [phone] Rey Tay MD Unavailable Rocky Zepeda DO Unavailable Philip Dumont MD Unavailable [phone] Meredith CarreraC Unavailable [phone] Neil Kent MD Unavailable Juan Pablo Emmanuel MD Unavailable [phone] Audrey Waite-C Unavailable [phone] Reason for Visit * Reason Onset Date Comments Outreach 08/01/2023 Encounter Details Date Type Department Care Team (Late st Contact Info) Description 08/01/2023 [facility] Adv[facility] [address] [address] Esha Grimm PA-C [address] [place] [address] Outreach Social History Tobacco Use Types [...] How often do you attend chur or denominational services? 1 to 4 times [...] Esha Grimm PA-C- ANGEL LUIS. See pt's Mandiantt messages. Routed to PCP Pao Marcos RN PAL (Patient Advocate Liaison) [facility] FILER BALANCE WHEEL documented in this encounter Plan of Treatment Upcoming Encounters Date Type Department Care Team (Late st Contact Info) Description 03/26/2024 11:20 AM CDT Office Visit [facility] Spine and Neurosurgery [address] [place] [address] Ebony Cid, TWISTING PRESS OPERATOR [facility] 500 [place], [place] 605055 03/27/2024 11:00 AM CDT Office Visit [facility] Monserrat [address] [facility] [address] [place] [address] Jelena David, 3305 [facility] [place] [phone] 04/19/2024 2:45 PM CDT Office Visit [address] [phone] Audrey Waite PA-C 420 [facility] [address]385, [facility] 603 [place], [place] 581515 05/08/2024 1:30 PM CDT Office Visit [facility] [address] [place] [address] Lauren Claudio PA-C [address] [place], [place] [phone] Esha Grimm PA-C [address] [place] [address] 06/21/2024 2:00 PM HAND FILER BALANCE WHEEL Office [facility] Neurology [facility] [address] [place] [address], [address] [place] [address] [place] [address] [place] [phone] Johnny Penn MD 8299 [place] [address] Scheduled Procedures Name Priority Associated Diagnoses Date/Ti me ESOPHAGOGASTRODUODENOSCOPY Eosinophilic esophagitis Esophageal dysphagia documented as of this encounter Visit Diagnoses Not on filedocumented in this encounter Additional Health Concerns Infection Onset Date Last Indicated Resolved Time Rule Out COVID-19 12/26/2023 12/26/2023 12/26/2023 9:50 AM CDT Assessment Noted Time PHQ-9 Depression Total Score: 4 06/20/20 23 8:40 AM HAND FILER BALANCE WHEEL documented as of this encounter Care Teams Bone Glue Maker Relationship Specialty Start Date End Date Esha Grimm PA-C [address] [place] [address] PCP - General Family Medicine 05/04/23 Diana Desir, [facility] [address] [place] [address] Pharmacist Pharmacist 04/17/21 Rain Galaviz PA-C [address] [place] [address] [address] [place] [address] Physician Binding Cementer French Cord Dermatology 04/28/21 Tavia Wyatt MD [address] [place] [address] DR [address] [facility] [place] [address] Dermatology 07/14/21 Erica Farrell APRN DIORAMIST 6405 [facility] [address] [place] [address] Nurse Practitioner Cardiovascular Disease 09/09/21 Rich Barrett MD 516 [facility] 9A [place], [place] 825535 Physician Ophthalmology 01/21/22 Neil Kent MD 500 [place], [place] 038905 Dermatology 02/24/22 Diana Desir, [facility] 3033 [place], [place] 260856 Assigned MTM Pharmacist 04/07/22 Livan Sharif MD [address] [facility] [address], [facility] [address] [place], [place] 9227[address] Cardiovascular Disease 05/14/22 Catherine Cm MD [address] [facility] [address] [place], [place] 798165 Cardiovascular Disease 07/21/22 Valery Veronica, PAUcheC 909 [place], [place] 0[address]95 Physician Binding Cementer French Cord Dermatology 07/21/22 Brea Quinn APRN DIORAMIST 500 [place], [place] 038625 Nurse Practitioner Dermatology 09/21/22 Brea Quinn APRN DIORAMIST [address] [place] [address] 703032 Assigned Surgical Provider 10/09/22 [place] [address] [address] [facility] 300 [place] [address] Assigned Musculoskeletal Provider 10/09/22 Alfonso Renteria MD 5775 [facility] 200 [place], [place] 275696 Assigned Neuroscience Provider 04/02/23 Radha Lomeli TWISTING PRESS OPERATOR DIORAMIST [address] [place], [place] 462135 Assigned Heart and Vascular Provider 05/28/23 Jelena David OD [address] [place] [address] MD Ophthalmology 06/15/23 Pao Joseph, VJ Personal Advocate & Liaison (PAL) Nurse 08/01/23 11/07/23 Esha Grimm PA-C [address] [place] [address] Assigned PCP 07/16/23 Valery Veronica PA-C [address] [place] [address] 239825 Physician Binding Cementer French Cord Dermatology 09/19/23 Rey Tay MD [address] [place] [address] 830805 Gastroenterology 09/20/23 Rocky Zepeda DO [address] [place] [address] 296045 Physician Gastroenterology 09/20/23 Philip Dumont MD [address] [place] [address] 294795 Physician Ophthalmology 09/22/23 Meredith Carrera PA-C [address] [place] [address] Assigned Gastroenterology Provider 11/01/23 Neil Kent MD [address] [address] Dermatology 11/02/23 [place] [address] [place] [address] Neurological Surgery 12/26/23 Audrey Waite PAUcheC 500 [place] [address] Physician Binding Cementer French Cord Dermatology 02/28/24 documented as of this encounter
--- OUTSIDE RECORDS SUMMARY | 2024-03-12 19:36 | XMS_ITS | Encounter Summary ---
Author Organization [facility] Address [address] [place] [address] Care Team Providers Care Electrical Technician Instructor Name Role Phone ThangKendrickDiana T [facility] Unavailable Rain Galaviz-C Unavailable Tavia Wyatt MD Unavailable Unavailable Erica Farrell HELP DESK REP DYNAMIC BALANCER SET UP WORKER Unavailable Rich Barrett MD Unavailable Neil Kent MD Unavailable Diana Desir [facility] Unavailable Livan Sharif MD Unavailable Catherine Cm MD Unavailable + Valery Veronica-C Unavailable [phone] Brea Quinn HELP DESK REP DYNAMIC BALANCER SET UP WORKER Unavailable [phone] Brea Quinn HELP DESK REP DYNAMIC BALANCER SET UP WORKER Unavailable Jose Francisco Johnson MD Unavailable Sydnie Martinez RN Unavailable Unavailable Alfonso Renteria MD Unavailable + [phone] Esha Grimm PA-C Primary Care Provider [phone] Lomeli, Radha E HELP DESK REP DYNAMIC BALANCER SET UP WORKER Unavailable [phone] Jelena David OD Unavailable Pao Joseph RN Unavailable Unavailable Esha Grimm Adam PA-C Unavailable JeremíasValery PA-C Unavailable [phone] Rey Tay MD Unavailable Rocky Zepeda DO Unavailable Philip Dumont MD Unavailable [phone] Meredith Carrera PA-C Unavailable [phone] Neil [place] MD Unavailable Juan Pablo Emmanuel MD Unavailable [phone] Audrey Waite PA-C Unavailable [phone] Encounter Details Date Type Department Care Team (Late st Contact Info) Description 07/29/2023 MyC Medical Advice [address] [address] Pao Joseph, VJ Social History Tobacco Use Types Packs/Day [...] Recorded PHQ-2 Score 0 06/20/2023 [facility] [...] exercise at this level? 30 min 03/10/2023 Usk Depression Scale Answer Date Recorded Usk Depression Score 5 01/14/2021 Last EPDS Self [...] Visit [facility]ine and Neurosurgery 1747 [facility] 100 [place] [address] Ebony Cid, [facility] 500 [place], [place] 0[address]305 03/27/2024 11:00 AM CDT Office Visit [facility] Monserrat [address] [facility] [address] [place] [phone] Jelena David, 3305 [facility] [place] [address] 04/19/2024 2:45 PM CDT Office Visit [facility] 830 [place] [phone] Audrey Waite PA-C 420 [facility] B385, [facility] 603 [place], [place] 7[address] 05/08/2024 1:30 PM CDT Office Visit [facility] [address] [place] [address] Lauren Claudio PA-C [address] [place] [address] Esha Grimm PA-C [id number] [place] [address] 06/21/2024 2:00 PM ESTIMATOR PROJECT MANAGER Office Visit [facility] Neurology [address], [address] [place] [address] [place] [address] [place] [address] Johnny Penn MD 6545 [place] [address] Scheduled Procedures Name Priority Associated Diagnoses Date/Ti md ESOPHAGOGASTRODUODENOSCOPY Eosinophilic esophagitis Esophageal dysphagia documented as of this encounter Visit Diagnoses Not on filedocumented in this encounter Additional Health Concerns Infection Onset Date Last Indicated Resolved Time Rule Out COVID-19 12/26/2023 12/26/2023 12/26/2023 9:50 AM CDT Assessment Noted Time PHQ-9 Depression Total Score: 4 06/20/20 23 8:40 AM ESTIMATOR PROJECT MANAGER documented as of this encounter Care Teams Electrical Technician Instructor Relationship Specialty Start Date End Date Esha Grimm PA-C [address] [place] [address] PCP - General Family Medicine 05/04/23 Diana Desir, [facility] 3033 [place] [address] Pharmacist Pharmacist 04/17/21 Rain Galaviz PA-C [address] [place] [address] [address] [place] [address] Physician Cdl Flatbed Truck Driver Dermatology 04/28/21 Tavia Wyatt MD [address] [place] [address] DR RA[address] [place] [facility] [address] Dermatology 07/14/21 Erica Farrell APRN DYNAMIC BALANCER SET UP WORKER [address] [place] [address] Nurse Practitioner Cardiovascular Disease 09/09/21 Rich Barrett MD [address] [place] [address] 9[address] [place], [place] 672355 Physician Ophthalmology 01/21/22 Neil Kent MD 500 [place], [place] 900975 Dermatology 02/24/22 Diana Desir, [facility] 3033 [place] [address] Assigned MTM Pharmacist 04/07/22 Livan Sharif MD [address] [place] [address] Cardiovascular Disease 05/14/22 Catherine Cm MD [address] [place] 604455 Cardiovascular Disease 07/21/22 Valery Veronica PABaldo 909 [place], [place] 569985 Physician Cdl Flatbed Truck Driver Dermatology 07/21/22 Brea Quinn APRN DYNAMIC BALANCER SET UP WORKER 500 [place], [place] 155875 Nurse Practitioner Dermatology 09/21/22 Brea Quinn APRN DYNAMIC BALANCER SET UP WORKER 6401 [facility] [place], [place] 161162 Assigned Surgical Provider 10/09/22 [place] [address] [address] [facility] 300 [place] [address] Assigned Musculoskeletal Provider 10/09/22 Sydnie Martinez RN Personal Advocate & Liaison (PAL) Family Medicine 03/28/23 07/31/23 Alfonso Renteria MD 5775 [facility] 200 [place], [place] 767396 Assigned Neuroscience Provider 04/02/23 Radha Lomeli APRN DYNAMIC BALANCER SET UP WORKER [address] [place] 2226900 [place] [address] Assigned Heart and Vascular Provider 05/28/23 Jelena David OD [address] [facility] [place] [address] Ophthalmology 06/15/23 Pao Joseph, VJ Personal Advocate & Liaison (PAL) Nurse 08/01/23 11/07/23 Esha Grimm PA-C [address] [place] [address] Assigned PCP 07/16/23 Valery Veronica PA-C [address] [place] [address] 556815 Physician Cdl Flatbed Truck Driver Dermatology 09/19/23 Rey Tay MD [address] [place] [address] 114155 MD Gastroenterology 09/20/23 Rocky Zepeda DO [address] [place] [address] 778065 Physician Gastroenterology 09/20/23 Phliip Dumont MD [address] [place] [address] 672895 Physician Ophthalmology 09/22/23 Meredith Carrera PA-C [address] [place] [address] Assigned Gastroenterology Provider 11/01/23 Neil Kent MD [address] [address] Dermatology 11/02/23 [place] [address] [place] [address] Neurological Surgery 12/26/23 Audrey Waite PA-C [address] [place] [address] Physician Cdl Flatbed Truck Driver Dermatology 02/28/24 documented as of this encounter
--- OUTSIDE RECORDS SUMMARY | 2024-03-12 19:36 | XMS_ITS | Encounter Summary ---
Author Organization [place] Address [address] [place] [address] Care Team Providers Care Final Inspector Balance Wheel Name Role Phone Marija Edgar APRN MAT PUNCHER Primary Care Provider Marija Emery APRN, CNP Unavailable Unavail able Diana Desir [facility] Unavailable [phone] Rain Galaviz PA-C Unavailable [phone] Tavia Wyatt MD Unavailable Unavailable Erica Farrell APRN MAT PUNCHER Unavailable Rich Barrett MD Unavailable [phone] Neil Kent MD Unavailable Diana Desir [facility] Unavailable [phone] Livan Sharif MD Unavailable Catherine Cm MD Unavailable + Valery Veronica PA-C Unavailable [phone] Brea Quinn APRN MAT PUNCHER Unavailable [phone] Brea Quinn APRN MAT PUNCHER Unavailable [phone] Jose Francisco Johnson MD Unavailable Catherine Cm MD Unavailable + Juan, Sydnie M RN Unavailable Unavailable Alfonso Renteria MD Unavailable [phone] Esha Grimm PAUcheC Primary Care Provider Cheng Todd PA-C Unavailable Radha Lomeli APRN MAT PUNCHER Unavailable [phone] Jelena David OD Unavailable Pao Joseph RN Unavailable Unavailable Esha Grimm-C Unavailable [phone] JeremíasValery damon PA-C Unavailable Rey Tay MD Unavailable Rocky Zepeda DO Unavailable Philip Dumont MD Unavailable Meredith Carrera-C Unavailable [phone] Neil Kent MD Unavailable Juan Pablo Emmanuel MD Unavailable [phone] Reason for Visit * Reason Onset Date Comments Forms 04/13/2023 DMV (LOC) Encounter Details Date Type Department Care Team (Late st Contact Info) Description 04/13/2023 Telephone [facility] [address] [facility], [address] [place] [address] Alfonso Renteria MD [address] [facility] [address] [place] [address] Forms (DMV (LOC)) Social History [...] Recorded PHQ-2 Score 0 10/25/2023 [facility] - Occupational [...] exercise at this level? 30 min 03/10/2023 [place] Depression Scale Answer Date Recorded [place] Depression Score 5 01/14/2021 Last EPDS Self [...] are unable to fill this out because [place] [employer] will not accept it. It needs to be in your hand writing. The last one filed was 12/2021 andit said over 3 years ago. Notes in chart said last seizure July 2018. If that helps or if you had a more recent seizure please put that date in. We will watch for your updated form. Our fax number [phone]. Thank you. * Telephone Encounter - Magdalena Anne CMA - 04/13/2023 3:20 PM CDT Received DMV (LOC) Form to be completed. Form saved to [employer], encounter routed. Magdalena Anne CMA documented in this encounter Plan of Treatment Upcoming Encounters Date Type Department Care Team (Late st Contact Info) Description 03/26/2024 11:20 AM CDT Office Visit [facility] Spine and Neurosurgery [address] [facility] [address] [place] [address] Ebony Cid APRN [facility] 500 [place], [place] 543785 03/27/2024 11:00 AM CDT Office Visit [facility] [address] [facility] [address] [place] [address] [place], [place] [address] [place] [address] 04/19/2024 2:45 PM CDT Office Visit [facility] 830 [place] [address] Audrey Waite PA-C [address] [facility] [address], [facility] 603 [place], [place] 737845 05/08/2024 1:30 PM CDT Office Visit [facility] [address] [place] [address] Lauren Claudio PA-C [address] [place] [address] Esha Grimm PA-C [address] [place] [address] 06/21/2024 2:00 PM SUPPLY PERSON Office Visit [facility] Neurology Clinics - [address], [address] [place] [phone] [place] [address] [place], [place] [address] Johnny Penn MD 6545 [place], [place] 614965 Scheduled Procedures Name Priority Associated Diagnoses Date/Ti [...] documented as of this encounter Care Teams Final Inspector Balance Wheel Relationship Specialty Start Date End Date Marija Edgar APRN MAT PUNCHER PCP - General Nurse Practitioner 04/30/20 04/14/23 Esha Grimm PA-C [address] [place] [address] PCP - General Family Medicine 05/04/23 Marija Edgar APRN MAT PUNCHER Assigned PCP 06/08/20 04/29/23 Diana Desir, [facility] [address] [place] [address] Pharmacist Pharmacist 04/17/21 Rain Galaviz PA-C [address] [place] [address] [address] [facility] [place] [address] Physician Supervisor Public Message Service Dermatology 04/28/21 Tavia Wyatt MD [address] [place] [address] [address] [facility] [place] [address] Dermatology 07/14/21 Erica Farrell APRN MAT PUNCHER [address] [facility] [address] [place] [address] Nurse Practitioner Cardiovascular Disease 09/09/21 Rich Barrett MD [address] [address] Physician Ophthalmology 01/21/22 Neil Kent MD 500 [place], [place] [phone] Dermatology 02/24/22 Diana Desir, [facility] [address] [place], [place] 089436 Assigned MTM Pharmacist 04/07/22 Livan Sharif MD [address], [address] [place] [address] Cardiovascular Disease 05/14/22 Catherine Cm MD [address] [place] 187335 Cardiovascular Disease 07/21/22 Valery Veronica, PA-C [address] [place] [address] 818895 Physician Supervisor Public Message Service Dermatology 07/21/22 Brea Quinn APRN MAT PUNCHER [address] [place] [address] 657655 Nurse Practitioner Dermatology 09/21/22 Brea Quinn APRN MAT PUNCHER 64[address] [facility] [place], [place] 605762 Assigned Surgical Provider 10/09/22 [place] [address] [place] [address] [place] 246897 Assigned Musculoskeletal Provider 10/09/22 Catherine Cm MD [address] [place] 038475 Assigned Heart and Vascular Provider 11/13/22 05/27/23 Sydnie Martinez, VJ Personal Advocate & Liaison (PAL) Family Medicine 03/28/23 07/31/23 Alfonso Renteria MD [address] [facility] [address] 200 [place] [address] Assigned Neuroscience Provider 04/02/23 Cheng Todd PA-C [address] [place] [address] Assigned PCP 04/30/23 07/15/23 Radha Lomeli APRN MAT PUNCHER [address] [facility] [address] [place] [address] Assigned Heart and Vascular Provider 05/28/23 Jelena David OD [address] [place] [address] Ophthalmology 06/15/23 Pao Joseph, VJ Personal Advocate & Liaison (PAL) Nurse 08/01/23 11/07/23 Esha Grimm PA-C [address] [place] [address] Assigned PCP 07/16/23 Valery Veronica PA-C [address] [place] [address] 942505 Physician Supervisor Public Message Service Dermatology 09/19/23 Rey Tay MD [address] [place] [address] Gastroenterology 09/20/23 Rocky Zepeda DO 500 [place] [address] Physician Gastroenterology 09/20/23 Philip Dumont MD [address] [place] [address] Physician Ophthalmology 09/22/23 Meredith Carrera PA-C [address] [place] [address] Assigned Gastroenterology Provider 11/01/23 Neil Kent MD [address] [address] Dermatology 11/02/23 [place] [address] [place] [address] Neurological Surgery 12/26/23 documented as of this encounter
--- OUTSIDE RECORDS SUMMARY | 2024-03-12 19:36 | XMS_ITS | Encounter Summary ---
Author Organization [place] Address [address] [place] [address] Care Team Providers Care Baby Doctor Name Role Phone Thang Diana [place] [facility] Unavailable Rain Galaviz-C Unavailable [phone] Tavia Wyatt MD Unavailable Unavailable Erica Farrell APRN TOWNSHIP CLERK Unavailable Rich Barrett MD Unavailable Neil Kent MD Unavailable Diana Desir [facility] Unavailable [phone] Livan Sharif MD Unavailable Catherine Cm MD Unavailable + Valery Veronica-C Unavailable [phone] Brea Quinn SUPERVISOR WELDING EQUIPMENT REPAIRER TOWNSHIP CLERK Unavailable Brea Quinn SUPERVISOR WELDING EQUIPMENT REPAIRER TOWNSHIP CLERK Unavailable Jose Francisco Johnson MD Unavailable Sydnie Martinez RN Unavailable Unavailable Alfonso Renteria MD Unavailable + [phone] Esha Grimm PA-C Primary Care Provider [phone] Cheng Todd PA-C Unavailable Radha Lomeli APRN TOWNSHIP CLERK Unavailable [phone] Jelena David OD Unavailable Pao Joseph RN Unavailable Unavailable Wicho Grimmlincoln Medina PA-C Unavailable [phone] Valery Veronica PA-C Unavailable [phone] Rey Tay MD Unavailable Rocky Zepeda DO Unavailable Philip Dumont MD Unavailable [phone] Meredith Carrera PA-C Unavailable [phone] Neil Kent MD Unavailable Juan Pablo Emmanuel MD Unavailable [phone] Audrey Waite PA-C Unavailable [phone] Encounter Details Date Type Department Care Team (Late st Contact Info) Description 06/15/2023 MyC Medical Advice [facility] [address] [place] [address] Doris Levi Social History Tobacco [...] How often do you attend chur or jewish services? 1 to 4 times [...] Answer Date Recorded PHQ-2 Score 1 05/16/[address] [facility]ational Stress Questionnaire [...] exercise at this level? 30 min 03/10/2023 [place] Depression Scale Answer Date Recorded [place] Depression Score 5 01/14/2021 Last EPDS [...] an overnight skilled nursing, or couch-surfing.) Yes 04/18/2023 Are you worried [...] Description 03/26/2024 11:20 AM CDT Office Visit [facility] Spine and Neurosurgery [address] [facility] [address] [place] [address] Ebony Cid, SUPERVISOR WELDING EQUIPMENT REPAIRER TOWNSHIP CLERK 500 [place] [address] 03/27/2024 11:00 AM CDT Office Visit [facility] [address] [facility] [address] [place] [phone] Jelena David, OD [address] [facility] [place] [address] 04/19/2024 2:45 PM CDT Office Visit [facility] 830 [place] [phone] Audrey Waite PA-C [address] [facility] [address], [facility] 603 [place], [place] 5726[address] 05/08/2024 1:30 PM CDT Office Visit [facility] [address] [place] [phone] Lauren Claudio PA-C [address] [place] [address] Esha Grimm PA-C [address] [place] [address] 06/21/2024 2:00 PM ELECTRONICS INSTRUCTOR Office Visit [facility] Neurology [facility]ics - [place] [address] [place] [address], [address] [place] [address] [place] [address] [place], [place] [phone] Johnny Penn MD 6545 [place] [address] Scheduled Procedures Name Priority Associated Diagnoses Date/Ti ne ESOPHAGOGASTRODUODENOSCOPY Eosinophilic esophagitis Esophageal dysphagia documented as of this encounter Visit Diagnoses Not on filedocumented in this encounter Additional Health Concerns Infection Onset Date Last Indicated Resolved Time Rule Out COVID-19 12/26/2023 12/26/2023 12/26/2023 9:50 AM CDT Assessment Noted Time PHQ-9 Depression Total Score: 6 05/16/20 23 9:29 AM ELECTRONICS INSTRUCTOR documented as of this encounter Care Teams Baby Doctor Relationship Specialty Start Date End Date Esha Grimm PA-C [address] [facility] [place] [address] PCP - General Family Medicine 05/04/23 Diana Desir, [facility] [address] [place] [address] Pharmacist Pharmacist 04/17/21 Rain Galaviz PA-C [address] [place] [address] [address] [place] [address] Physician Funeral Pre Arrangement Specialist Dermatology 04/28/21 Tavia Wyatt MD [address] [place] [address] [place] [address] Dermatology 07/14/21 Erica Farrell APRN TOWNSHIP CLERK [address] [place] [address] Nurse Practitioner Cardiovascular Disease 09/09/21 Rich Barrett MD [address] 197[address] Physician Ophthalmology 01/21/22 Neil Kent MD 500 [place], [place] 202805 Dermatology 02/24/22 Diana Desir, [facility] [address] [place] [address] Assigned MTM Pharmacist 04/07/22 Livan Sharif MD [address] [place] [address] Cardiovascular Disease 05/14/22 Catherine Cm MD 6[address] [facility] [address] [place] [address] Cardiovascular Disease 07/21/22 Valery Veronica PAUcheC 909 [place] [address] Physician Funeral Pre Arrangement Specialist Dermatology 07/21/22 Brea Quinn APRN TOWNSHIP CLERK 500 [place], [place] 745085 Nurse Practitioner Dermatology 09/21/22 Brea Quinn APRN TOWNSHIP CLERK 6401 [place] [address] Assigned Surgical Provider 10/09/22 [place] [address] [facility] 300 [place] [address] Assigned Musculoskeletal Provider 10/09/22 Sydnie Martinez RN Personal Advocate & Liaison (PAL) Family Medicine 03/28/23 07/31/23 Alfonso Renteria MD 5775 [facility] 200 [place], [place] 030606 Assigned Neuroscience Provider 04/02/23 Cheng Todd PA-C [address] [place] [address] Assigned PCP 04/30/23 07/15/23 Radha Lomeli APRN TOWNSHIP CLERK [address] [facility] [address] [place], [place] 168875 Assigned Heart and Vascular Provider 05/28/23 Jelena David OD [address] [facility] [place] [address] MD Ophthalmology 06/15/23 Pao Joseph, VJ Personal Advocate & Liaison (PAL) Nurse 08/01/23 11/07/23 Esha Grimm PA-C [address] [place] [phone] Assigned PCP 07/16/23 Valery Veronica PA-C [address] [place] [address] 782135 Physician Funeral Pre Arrangement Specialist Dermatology 09/19/23 Rey Tay MD [address] [place] [address] 441425 Gastroenterology 09/20/23 Rocky Zepeda DO [address] [place] [address] 682945 Physician Gastroenterology 09/20/23 Philip Dumont MD [address] [place] [address] 232455 Physician Ophthalmology 09/22/23 Meredith Carrera PA-C [address] [place] [address] Assigned Gastroenterology Provider 11/01/23 Neil Kent MD [address] [address] Dermatology 11/02/23 [place] [address] [place] [address] Neurological Surgery 12/26/23 Audrey Waite, PAUcheC 500 [place] [address] Physician Funeral Pre Arrangement Specialist Dermatology 02/28/24 documented as of this encounter
--- OUTSIDE RECORDS SUMMARY | 2024-03-12 19:36 | XMS_ITS | Encounter Summary ---
Author Organization [place] Address [address] [place] [address] Care Team Providers Care Jersey Knitter Name Role Phone Thang Diana [place] [facility] Unavailable Rain Galaviz-C Unavailable Tavia Wyatt MD Unavailable Unavailable Erica Farrell APRN SURGICAL SPECIALIST Unavailable Rich Barrett MD Unavailable Neil Kent MD Unavailable Diana Desir [facility] Unavailable Livan Sharif MD Unavailable Cathreine Cm MD Unavailable + Valery Veronica-C Unavailable [phone] Brea Quinn FINAL TOUCH UP PAINTER SURGICAL SPECIALIST Unavailable [phone] Brea Quinn FINAL TOUCH UP PAINTER SURGICAL SPECIALIST Unavailable Jose Francisco Johnson MD Unavailable Sydnie Martinez RN Unavailable Unavailable Alfonso Renteria MD Unavailable + [phone] Esha Grimm PA-C Primary Care Provider Cheng Todd PA-C Unavailable Radha Lomeli APRN SURGICAL SPECIALIST Unavailable Jelena David OD Unavailable Pao Joseph RN Unavailable Unavailable Alfa Esha M PA-C Unavailable Valery Veronica PA-C Unavailable Rey Tay MD Unavailable Rocky Zepeda DO Unavailable Philip Dumont MD Unavailable [phone] Meredith Carrera PA-C Unavailable Neil Kent MD Unavailable Juan Pablo Emmanuel MD Unavailable [phone] Audrey Waite PA-C Unavailable Encounter Details Date Type Department Care Team (Late st Contact Info) Description 07/06/2023 MyC Medical Advice M [facility] [address], [address] [place] [address] Alfonso Renteria MD [address] [facility] [address] 200 [place] [address] Social History Tobacco Use Types [...] 03/10/2023 How often do you attend [facility] or shinto services? 1 to 4 times [...] Date Recorded PHQ-2 Score 0 06/20/2023 [facility] of Occupat [...] exercise at this level? 30 min 03/10/2023 [place] Depression Scale Answer Date Recorded [place] Depression Score 5 01/14/2021 Last EPDS Self [...] in an overnight mcfp, or couch-surfing.) Yes 06/20/2023 Are you worried [...] Genny Hyman PA-C - 07/07/2023 11:13 AM SERVICE OR WORK DISPATCHER No lesions/abnormal findings on MRI to account for possible seizure activity. Last office note indicated: If repeat MRI was normal would reduce levetiracetam to 250 mg per day for two weeks and then stop. Ok to proceed with this plan. Call if questions, concerns, or worsening of symptoms with discontinuation of the medication Genny Hyman PA-C ICE OR WORK DISPATCHER documented in this encounter Plan of Treatment Upcoming Encounters Date Type Department Care Team (Late st Contact Info) Description 03/26/2024 11:20 AM CDT Office Visit [facility] Spine and Neurosurgery [address] [place] [address] Ebony Cid, FINAL TOUCH UP PAINTER SURGICAL SPECIALIST [address] [place] [address] 03/27/2024 11:00 AM CDT Office Visit [facility] Monserrat [address] [facility] [address] [place] [phone] Jelena David, [place] [address] [place] [address] 04/19/2024 2:45 PM CDT Office Visit [facility] 830 [place] [phone] Audrey Waite PA-C [address] [facility] [address], [facility] 603 [place], [place] 8[address] 05/08/2024 1:30 PM CDT Office Visit [facility] [address] [place] [phone] Lauren Claudio PA-C [address] [place], [place] [phone] Esha Grimm PA-C [address] [place] [address] 06/21/2024 2:00 PM SERVICE OR WORK DISPATCHER Office Visit [facility] Neurology Clinics - [place] [address] [facility], [address] [place] [address] [place] [address] [place], [place] [phone] Johnny Penn MD [address] [facility] [place] [address] Scheduled Procedures Name Priority Associated Diagnoses Date/Ti ia ESOPHAGOGASTRODUODENOSCOPY Eosinophilic esophagitis Esophageal dysphagia documented as of this encounter Visit Diagnoses Not on filedocumented in this encounter Additional Health Concerns Infection Onset Date Last Indicated Resolved Time Rule Out COVID-19 12/26/2023 12/26/2023 12/26/2023 9:50 AM CDT Assessment Noted Time PHQ-9 Depression Total Score: 4 06/20/20 23 8:40 AM SERVICE OR WORK DISPATCHER documented as of this encounter Care Teams Jersey Knitter Relationship Specialty Start Date End Date Esha Grimm PA-C [address] [place] [address] PCP - General Family Medicine 05/04/23 Diana Desir, [facility] [address] [place], [place] [address] Pharmacist Pharmacist 04/17/21 Rain Galaviz PA-C [address] [place] [address] [address] [place] [address] Physician Auto Headlight Mechanic Dermatology 04/28/21 Tavia Wyatt MD [address] [place] [address] [address] [place] [address] Dermatology 07/14/21 Erica Farrell, ARLENE SURGICAL SPECIALIST [address] [facility] [address] [place] [address] Nurse Practitioner Cardiovascular Disease 09/09/21 Rich Barrett MD 516 [facility] [address] [place] [address] Physician Ophthalmology 01/21/22 Neil Kent MD 500 [place] [address] Dermatology 02/24/22 Diana Desir, [facility] 3033 [place] [address] Assigned [place] Pharmacist 04/07/22 Livan Sharif MD [address] [facility] [place] 9[address] Cardiovascular Disease 05/14/22 Catherine Cm MD [address] [facility] [place] 021665 Cardiovascular Disease 07/21/22 Valery Veronica, PA-C 909 [place] [address] Physician Auto Headlight Mechanic Dermatology 07/21/22 Brea Quinn APRN SURGICAL SPECIALIST 500 [place] [address] Nurse Practitioner Dermatology 09/21/22 Brea Quinn APRN SURGICAL SPECIALIST 6401 [place] [address] Assigned Surgical Provider 10/09/22 [place] [address] [place] [address] Assigned Musculoskeletal Provider 10/09/22 Sydnie Martinez RN Personal Advocate & Liaison (PAL) Family Medicine 03/28/23 07/31/23 Alfonso Renteria MD [address] [facility] [address] 200 [place] [address] Assigned Neuroscience Provider 04/02/23 Cheng Todd PA-C [address] [place] [address] Assigned PCP 04/30/23 07/15/23 Radha Lomeli, ARLENE SURGICAL SPECIALIST [address] [facility] [address] [place], [place] 957[address] Assigned Heart and Vascular Provider 05/28/23 Jelena aDvid OD [address] [facility] [address] [place] [id number] Ophthalmology 06/15/23 Pao Joseph, RN Personal Advocate & Liaison (PAL) Nurse 08/01/23 11/07/23 Esha Grimm PA-C [address] [place] [address] Assigned PCP 07/16/23 Valery Veronica PA-C [address] [place] [address] Physician Auto Headlight Mechanic Dermatology 09/19/23 Rey Tay MD [address] [place] [address] 966535 Gastroenterology 09/20/23 Rocky Zepeda DO [address] [place] [address] 313685 Physician Gastroenterology 09/20/23 Philip Dumont MD 516 [place] [address] Physician Ophthalmology 09/22/23 Meredith Carrera PA-C [address] [place] [address] 456555 Assigned Gastroenterology Provider 11/01/23 Neil Kent MD [address] 494320 Dermatology 11/02/23 [place] [address] [place] [address] 382337 Neurological Surgery 12/26/23 Audrey Waite PA-C 500 [place], [place] 878365 Physician Auto Headlight Mechanic Dermatology 02/28/24 documented as of this encounter
--- OUTSIDE RECORDS SUMMARY | 2024-03-12 19:36 | XMS_ITS | Encounter Summary ---
Author Organization [place] Address [address] [place] [address] Care Team Providers Care Food Aide Name Role Phone Marija Edgar ARLENE BRANCH STORE MANAGER Unavailable Unavail able Diana Desir [facility] Unavailable [phone] Rain Galaviz PA-C Unavailable [phone] Tavia Wyatt MD Unavailable Unavailable Erica Farrell APRN BRANCH STORE MANAGER Unavailable Rich Barrett MD Unavailable Neil Kent MD Unavailable Diana Desir [facility] Unavailable Livan Sharif MD Unavailable Catherine Cm MD Unavailable + Valery Veronica PA-C Unavailable [phone] Brea Quinn YARD LABORER BRANCH STORE MANAGER Unavailable Brea Quinn YARD LABORER BRANCH STORE MANAGER Unavailable [phone] Jose Francisco Johnson MD Unavailable Catherine Cm MD Unavailable + Sydnie Martinez RN Unavailable Unavailable Alfonso Renteria MD Unavailable + [phone] Esha Grimm PA-C Primary Care Provider Cheng Todd PA-C Unavailable LomeliRadha APRN BRANCH STORE MANAGER Unavailable Jelena David OD Unavailable Pao Joseph RN Unavailable Unavailable Esha Grimm PA-C Unavailable [phone] Valery Veronica PA-C Unavailable Rey Tay MD Unavailable Rocky Zepeda DO Unavailable Philip Dumont MD Unavailable [phone] Meredith Carrera PA-C Unavailable [phone] Neil Kent MD Unavailable Juan Pablo Emmanuel MD Unavailable [phone] Audrey Waite PA-C Unavailable [phone] Encounter Details Date Type Department Care Team (Late st Contact Info) Description 04/18/2023 [facility] Medical Advice [facility] Gastroenterology Clinic [address] [address] Mary Calvo Social History Tobacco [...] week 03/10/2023 How often do you attend [facility] or [facility] services? 1 to 4 [...] Answer Date Recorded PHQ-2 Score 0 03/10/2023 [facility] of Occupat ional Health - [...] Getting School Help Needed Not on file 09/25 /2023 Food Insecurity Answer Date Recorded Within the [...] an overnight senior care, or couch-surfing.) Yes 04/18/2023 Are you worried [...] [facility] [address] [place] [phone] Ebony Cid, [facility] 500 [place] [address] 03/27/2024 11:00 AM CDT Office Visit [facility] [address] [place] [phone] Jelena David, 3305 [facility] [place] [address] 04/19/2024 2:45 PM CDT Office Visit [facility] 830 [place] [phone] Audrey Waite PA-C 420 [facility] [address], [facility] 603 [place], [place] 118135 05/08/2024 1:30 PM CDT Office Visit [facility] [address] [place] [phone] Lauren Claudio PA-C [address] [place], [place] [phone] Esha Grimm PA-C [address] [place] [address] 06/21/2024 2:00 PM IRONWORKER FOREMAN Office Visit [facility] Neurology [facility] [address] [place] [address], [address] [place] [phone] [place] [address] [place] [address] [place] [address] Johnny Penn MD [address] [place] [address] Scheduled Procedures Name Priority Associated Diagnoses Date/Ti [...] as of this encounter Care Teams Food Aide Relationship Specialty Start Date End Date Esha Grimm PA-C [address] [place] [address] PCP - General Family Medicine 05/04/23 Marija Edgar APRN BRANCH STORE MANAGER Assigned PCP 06/08/20 04/29/23 Diana Desir, [facility] [address] [place], [place] 969996 Pharmacist Pharmacist 04/17/21 Rain Galaviz PA-C [address] [place] [address] [address] [place] [address] Physician Order Analyst Dermatology 04/28/21 Tavia Wyatt MD [address] [place] [address] [address] [place] [address] Dermatology 07/14/21 Erica Farrell APRN BRANCH STORE MANAGER 6405 [facility] [address] [place], [place] 0[address] Nurse Practitioner Cardiovascular Disease 09/09/21 Rich Barrett MD [address] [phone] Physician Ophthalmology 01/21/22 Neil Kent MD 500 [place], [place] [phone] Dermatology 02/24/22 Diana Desir, [facility] 3033 [place], [place] 908296 Assigned MTM Pharmacist 04/07/22 Livan Sharif MD [address], [facility] [address] [place] 992365 Cardiovascular Disease 05/14/22 Catherine Cm MD [address] [place] 242345 Cardiovascular Disease 07/21/22 Valery Veronica, PA-C [address] [place] [address] 633325 Physician Order Analyst Dermatology 07/21/22 Brea Quinn APRN BRANCH STORE MANAGER [address] [place] [address] 578845 Nurse Practitioner Dermatology 09/21/22 Brea Quinn APRN BRANCH STORE MANAGER [address] [place] [address] 308322 Assigned Surgical Provider 10/09/22 [place] [address] [place] [address] 989057 Assigned Musculoskeletal Provider 10/09/22 Catherine Cm MD [address] [place] 629235 Assigned Heart and Vascular Provider 11/13/22 05/27/23 Sydnie Martinez, RN Personal Advocate & Liaison (PAL) Family Medicine 03/28/23 07/31/23 Alfonso Renteria MD 5775 [facility] [address] 200 [place] [address] Assigned Neuroscience Provider 04/02/23 Cheng Todd PA-C [address] [place] [address] [id number] Assigned PCP 04/30/23 07/15/23 Radha Lomeli APRN BRANCH STORE MANAGER 6405 [facility] [address] [place], [place] 407155 Assigned Heart and Vascular Provider 05/28/23 Jelena David OD [address] [facility] [address] [place] [phone] Ophthalmology 06/15/23 Pao Joseph, VJ Personal Advocate & Liaison (PAL) Nurse 08/01/23 11/07/23 Esha Grimm PA-C [address] [place] [phone] Assigned PCP 07/16/23 Valery Veronica PA-C [address] [place] [address] 428635 Physician Order Analyst Dermatology 09/19/23 Rey Tay MD [address] [place] [address] 561755 MD Gastroenterology 09/20/23 Rocky Zepeda DO 500 [place] [address] Physician Gastroenterology 09/20/23 Philip Dumont MD 516 [place], [place] 916545 Physician Ophthalmology 09/22/23 Meredith Carrera PA-C 909 [place], [place] 777785 Assigned Gastroenterology Provider 11/01/23 Neil Kent MD [address] [address] Dermatology 11/02/23 [place] [address] [place] [address] Neurological Surgery 12/26/23 Audrey Waite PA-C 500 [place] [address] Physician Order Analyst Dermatology 02/28/24 documented as of this encounter
--- OUTSIDE RECORDS SUMMARY | 2024-03-12 19:37 | XMS_ITS | Encounter Summary ---
Author Organization [place] Address [address] [place] [address] Care Team Providers Care Fire Management Officer Name Role Phone Lita Oseguera Unavailable Unavailable Marija Edgar APRN LINOTYPE MECHANIC Primary Care Provider U Marija Bella APRN LINOTYPE MECHANIC Unavailable Unavail able Keisha Dotson MD Unavailable [phone] Diana Desir [facility] Unavailable [phone] Rain Galaviz PA-C Unavailable [phone] Tavia Wyatt MD Unavailable Unavailable Erica Farrell APRN LINOTYPE MECHANIC Unavailable Rich Barrett MD Unavailable [phone] Neil Kent MD Unavailable Diana Desir [facility] Unavailable [phone] Livan Sharif MD Unavailable Catherine Cm MD Unavailable + Valery Veronica PA-C Unavailable [phone] Catherine Cm MD Unavailable + Brea Quinn APRN LINOTYPE MECHANIC Unavailable [phone] Brea Quinn APRN LINOTYPE MECHANIC Unavailable [phone] Jose Francisco Johnson MD Unavailable Livan Sharif MD Unavailable Catherine Cm MD Unavailable + Sydnie Martinez RN Unavailable Unavailable Alfonso Renteria MD Unavailable [phone] Esha Grimm PA-C Primary Care Provider Cheng Todd PA-C Unavailable Radha Lomeli APRN LINOTYPE MECHANIC Unavailable Jelena David OD Unavailable [phone] Pao Joseph RN Unavailable Unavailable Esha Grimm PA-C Unavailable [phone] Valery Veronica PA-C Unavailable [phone] Rey Tay MD Unavailable Rocky Zepeda DO Unavailable Philip Dumont MD Unavailable [phone] Meredith Carrera PA-C Unavailable [phone] Neil Kent MD Unavailable Juan Pablo Emmanuel MD Unavailable Audrey Waite PA-C Unavailable [phone] Encounter Details Date Type Department Care Team (Late st Contact Info) Description 10/22/2022 MyC Medical Advice [facility] [place] [address] [place] [address] [address] [place] [address] [place] [address] [place], [place] [phone] Social History Tobacco Use Types Packs/Day Years [...] How often do you attend sabianist or jain serv ices? Never 09/22/2021 Do [...] Answer Date Recorded PHQ-2 Score 1 10/11/2022 [facility] of Occupat ional Health - Occupational [...] in a chcf (including now)? No 09/22/2021 [place] Depression Scale Answer Date Recorded [place] Depression Score 5 01/14/2021 Last EPDS Self [...] Description 03/26/2024 11:20 AM CDT Office Visit [facility] Spine and Neurosurgery 1747 [facility] 100 [place] [address] Ebony Cid, COTTON WASHER [facility] 500 [place], [place] 485875 03/27/2024 11:00 AM CDT Office Visit [facility] 3305 [facility] [address] [place] [phone] Jelena David, [place] [address] [facility] [place] [address] 04/19/2024 2:45 PM CDT Office Visit [facility] 830 [place] [phone] Audrey Waite PA-C [address] [place] [address] [address]385, [facility] 603 [place] [address] 05/08/2024 1:30 PM CDT Office Visit [facility] [address] [place] [address] Lauren Claudio PA-C [address] [place] [address] Esha Grimm PA-C [address] [place] [address] 06/21/2024 2:00 PM RELOCATION COUNSELOR Office Visit [facility] Neurology Clinics [facility] 6545 [facility], [address] [place] [address] [place] [address] [place] [address] Johnny Penn MD 4944 [place] [address] Scheduled Procedures Name Priority Associated Diagnoses Date/Ti nh ESOPHAGOGASTRODUODENOSCOPY Eosinophilic esophagitis Esophageal dysphagia documented as [...] as of this encounter Care Teams Fire Management Officer Relationship Specialty Start Date End Date Marija Edgar APRN CNP PCP - General Nurse Practitioner 04/30/20 04/14/23 Esha Grimm PA-C [address] [place] [address] PCP - General Family Medicine 05/04/23 Lita Oseguera Personal Advocate & Liaison (PAL) 02/28/20 03/27/23 Marija Edgar APRN LINOTYPE MECHANIC Assigned PCP 06/08/20 04/29/23 Keisha Dotson MD 909 [place] [address] Assigned Neuroscience Provider 06/04/20 04/01/23 Diana Desir, [facility] [address] [place] [address] Pharmacist Pharmacist 04/17/21 Rain Galaviz PA-C [address] [place] [address] [address] [place] [address] Physician Batt Machine Operator Dermatology 04/28/21 Tavia Wyatt MD [address] [place] [address] DR [facility] [address] Dermatology 07/14/21 Erica Farrell APRN LINOTYPE MECHANIC [address] [place] [address] Nurse Practitioner Cardiovascular Disease 09/09/21 iRch Barrett MD [address] [place] [address] 041695 Physician Ophthalmology 01/21/22 Neil Kent MD [address] [place] [address] 427595 Dermatology 02/24/22 Diana Desir, [facility] 30[address] [facility] [place] [address] Assigned MTM Pharmacist 04/07/22 Livan Sharif MD [address], [facility] [address] [place] [address] Cardiovascular Disease 05/14/22 Catherine Cm MD [address] [facility] [place] 597585 Cardiovascular Disease 07/21/22 Valery Veronica, PA-C [address] [place] [address] 705155 Physician Batt Machine Operator Dermatology 07/21/22 Catherine Cm MD [address] [facility] [address] [place] [address] Assigned Heart and Vascular Provider 07/24/22 11/05/22 Brea Quinn APRN LINOTYPE MECHANIC [address] [place] [address] 048635 Nurse Practitioner Dermatology 09/21/22 Brea Quinn APRN LINOTYPE MECHANIC [address] [place] [address] 994342 Assigned Surgical Provider 10/09/22 [place] [address] [place] [address] Assigned Musculoskeletal Provider 10/09/22 Livan Sharif MD [address], [address] [place] 509775 Assigned Heart and Vascular Provider 11/06/22 11/12/22 Catherine Cm MD [address] [place] [address] Assigned Heart and Vascular Provider 11/13/22 05/27/23 Sydnie Martinez, VJ Personal Advocate & Liaison (PAL) Family Medicine 03/28/23 07/31/23 Alfonso Renteria MD 5775 [facility] 200 [place] [address] Assigned Neuroscience Provider 04/02/23 Cheng Todd PA-C [address] [place] [address] Assigned PCP 04/30/23 07/15/23 Radha Lomeli APRN LINOTYPE MECHANIC [address] [place] [address] Assigned Heart and Vascular Provider 05/28/23 Jelena David OD [facility] [place] [address] Ophthalmology 06/15/23 Pao Joseph, VJ Personal Advocate & Liaison (PAL) Nurse 08/01/23 11/07/23 Esha Grimm PA-C [address] [place] [address]416583 Assigned PCP 07/16/23 Valery Veronica PA-C 9 [place] [address] Physician Batt Machine Operator Dermatology 09/19/23 Rey Tay MD [address] [place] [address] MD Gastroenterology 09/20/23 Rocky Zepeda DO 500 [place] [address] Physician Gastroenterology 09/20/23 Philip Dumont MD [address] [place] [address] Physician Ophthalmology 09/22/23 Meredith Carrera PA-C [address] [place] [address] Assigned Gastroenterology Provider 11/01/23 Neil Kent MD [address] [address] Dermatology 11/02/23 [place] [address] [address] Neurological Surgery 12/26/23 Audrey Waite PA-C [address] [place] [address] Physician Batt Machine Operator Dermatology 02/28/24 documented as of this encounter
--- OUTSIDE RECORDS SUMMARY | 2024-03-12 19:37 | XMS_ITS | Encounter Summary ---
Author Organization [place] Address [address] [place] [address] Care Team Providers Care Pile Driving Technician Name Role Phone Marija Edgar APRN ELECTROTYPE SERVICER Primary Care Provider Marija Emery APRN, CNP Unavailable Unavail able Diana Desir [facility] Unavailable [phone] Rain Galaviz PA-C Unavailable [phone] Tavia Wyatt MD Unavailable Unavailable Erica Farrell APRN ELECTROTYPE SERVICER Unavailable Rich Barrett MD Unavailable [phone] Neil Kent MD Unavailable Diana Desir [facility] Unavailable [phone] Livan Sharif MD Unavailable Catherine Cm MD Unavailable + Valery Veronica PA-C Unavailable [phone] Brea Quinn APRN ELECTROTYPE SERVICER Unavailable [phone] Brea Quinn APRN ELECTROTYPE SERVICER Unavailable [phone] Jose Francisco Johnson MD Unavailable Catherine Cm MD Unavailable + Juan, Sydnie M RN Unavailable Unavailable Alfonso Renteria MD Unavailable [phone] Esha Grimm PA-C Primary Care Provider [phone] Cheng Todd PA-C Unavailable [phone] Radha Lomeli APRN ELECTROTYPE SERVICER Unavailable Jelena David OD Unavailable Pao Joseph RN Unavailable Unavailable Esha Grimm PA-C Unavailable [phone] Valery Veronica PA-C Unavailable [phone] Rey Tay MD Unavailable Rocky Zepeda DO Unavailable Philip Dumont MD Unavailable Meredith Carrera PA-C Unavailable Neil Kent MD Unavailable Juan Pablo Emmanuel MD Unavailable Audrey Waite PA-C Unavailable [phone] Encounter Details Date Type Department Care Team (Late st Contact Info) Description 04/12/2023 MyC Medical Advice [facility] Heart [facility] [address] [facility] [address] [place] [address] Livan Sharif MD [address] [place] [address] Social History Tobacco Use Types [...] How often do you attend [facility] or methodist services? 1 to 4 [...] Answer Date Recorded PHQ-2 Score 0 03/10/2023 [facility] of Occupat ional Health - Occupational Stress [...] slept in a custodial (including now)? No 03/10/2023 [place] Depression Scale Answer Date Recorded [place] Depression Score 5 01/14/2021 Last EPDS Self [...] Thank you. Kim Swann, We are in [place], but asked a tech here to check the photo. He said the spot you chose is OK but he thinks we should have the [employer] check in with you as you may need to have some extra prep gelif you have have issues with the pads. We are reaching out to that [employer] team to let them know you are having some issues. Team [address] [place] [address] Sharif [phone] documented in this encounter Plan of Treatment Upcoming Encounters Date Type Department Care Team (Late st Contact Info) Description 03/26/2024 11:20 AM CDT Office Visit [facility] Spine and Neurosurgery 1747 [facility] [address] [place] [address] Ebony Cid APRN [facility] 500 [place] [address] 03/27/2024 11:00 AM CDT Office Visit [facility] 3305 [facility] [address] [place] [address] Frankie Jelena Garcia, OD [address] [place] [address] 04/19/2024 2:45 PM CDT Office Visit [facility] 830 [place] [phone] Audrey Waite PA-C 420 [facility] [address], [facility] 603 [place], [place] 965025 05/08/2024 1:30 PM CDT Office Visit [facility] [address] [place] [phone] Lauren Claudio PA-C [address] [place], [place] [phone] Esha Grimm PA-C [address] [place] [phone] 06/21/2024 2:00 PM SYNTHETIC FILAMENT EXTRUDER Office Visit [facility] Neurology Clinics [address], [address] [place] [address] [place] [address] [place] [address] Johnny Penn MD 6545 [place] [address] Scheduled Procedures Name Priority Associated [...] documented as of this encounter Care Teams Pile Driving Technician Relationship Specialty Start Date End Date Mairja Edgar APRN ELECTROTYPE SERVICER PCP - General Nurse Practitioner 04/30/20 04/14/23 Esha Grimm [facility]-C [address] [facility] [place] [address] PCP - General Family Medicine 05/04/23 Marija Edgar APRN ELECTROTYPE SERVICER Assigned PCP 06/08/20 04/29/23 Diana Desir, [facility] 3033 [place], [place] 133376 Pharmacist Pharmacist 04/17/21 Rain Galaviz PA-C [address] [place] [address] [address] [place] [address] Physician Senior Java Developer Dermatology 04/28/21 Tavia Wyatt MD [address] [place] [address] [address] [place] [address] Dermatology 07/14/21 Erica Farrell APRN ELECTROTYPE SERVICER 6405 [facility] [address] [place] [address] Nurse Practitioner Cardiovascular Disease 09/09/21 Rich Barrett MD [address] [phone] Physician Ophthalmology 01/21/22 Neil Kent MD 500 [place], [place] [phone] Dermatology 02/24/22 Diana Desir, [facility] 3033 [place], [place] 149016 Assigned [place] Pharmacist 04/07/22 Livan Sharif MD [address] [place] 822435 Cardiovascular Disease 05/14/22 Catherine Cm MD [address] [place] 888455 Cardiovascular Disease 07/21/22 Valery Veronica, PA-C [address] [place] [address] 477595 Physician Senior Java Developer Dermatology 07/21/22 Brea Quinn APRN ELECTROTYPE SERVICER [address] [place] [address] 925915 Nurse Practitioner Dermatology 09/21/22 Brea Quinn APRN ELECTROTYPE SERVICER [address] [place] [address] 768352 Assigned Surgical Provider 10/09/22 [place] [address] [place] [address] 330297 Assigned Musculoskeletal Provider 10/09/22 Catherine Cm MD [address] [place] 398865 Assigned Heart and Vascular Provider 11/13/22 05/27/23 Sydnie Martinez, RN Personal Advocate & Liaison (PAL) Family Medicine 03/28/23 07/31/23 Alfonso Renteria MD 5775 [facility] [address]NI 200 [place] [address] Assigned Neuroscience Provider 04/02/23 Cheng Todd PA-C [address] [place] [address] [phone] Assigned PCP 04/30/23 07/15/23 Radha Lomeli APRN ELECTROTYPE SERVICER 6405 [facility] [address] [place], [place] 243005 Assigned Heart and Vascular Provider 05/28/23 Jelena David OD [address] [place] [address] Ophthalmology 06/15/23 Pao Joseph, VJ Personal Advocate & Liaison (PAL) Nurse 08/01/23 11/07/23 Esha Grimm PA-C [address] [place] [address]74[address] Assigned PCP 07/16/23 Valery Veronica PA-C [address] [place] [address] 824305 Physician Senior Java Developer Dermatology 09/19/23 Rey Tay MD 909 [place], [place] 985185 Gastroenterology 09/20/23 Rocky Zepeda DO 500 [place] [address] Physician Gastroenterology 09/20/23 Philip Dumont MD 516 [place] [address] Physician Ophthalmology 09/22/23 Meredith Carrera PA-C 909 [place] [address] Assigned Gastroenterology Provider 11/01/23 Neil Kent MD [address] [address] Dermatology 11/02/23 [place] [address] [place] [address] [address] Neurological Surgery 12/26/23 Audrey Waite PA-C 500 [place] [address] Physician Senior Java Developer Dermatology 02/28/24 documented as of this encounter
--- OUTSIDE RECORDS SUMMARY | 2024-03-12 19:37 | XMS_ITS | Encounter Summary ---
Author Organization [place] Address [address] [place] [address] Care Team Providers Care Wooden Fence Erector Name Role Phone Lita Oseguera Unavailable Unavailable Marija Edgar APRN, CNP Primary Care Provider U Marija Bella APRN, CNP Unavailable Unavail able Keisha Dotson MD Unavailable [phone] Diana Desir [facility] Unavailable [phone] Rain Galaviz PA-C Unavailable Tavia Wyatt MD Unavailable Unavailable Erica Farrell APRN MUNICIPAL MAINTENANCE WORKER Unavailable Rich Barrett MD Unavailable [phone] Neil Kent MD Unavailable Diana Desir [facility] Unavailable [phone] Livan Sharif MD Unavailable Catherine Cm MD Unavailable + Valery Veronica PA-C Unavailable [phone] Brea Quinn APRN MUNICIPAL MAINTENANCE WORKER Unavailable [phone] Brea Quinn APRN MUNICIPAL MAINTENANCE WORKER Unavailable Jose Francisco Johnson MD Unavailable Catherine Cm MD Unavailable + Sydnie Martinez RN Unavailable Unavailable Alfonso Renteria MD Unavailable [phone] Esha Grimm PA-C Primary Care Provider [phone] Cheng Todd PA-C Unavailable Radha Lomeli APRN MUNICIPAL MAINTENANCE WORKER Unavailable Jelena David OD Unavailable [phone] Pao Joseph RN Unavailable Unavailable Esha Grimm PA-C Unavailable [phone] Valery Veronica PA-C Unavailable Rey Tay MD Unavailable Rocky Zepeda DO Unavailable Philip Dumont MD Unavailable Meredith Carrera PA-C Unavailable [phone] Neil Kent MD Unavailable Juan Pablo Emmanuel MD Unavailable [phone] Audrey Waite PA-C Unavailable Encounter Details Date Type Department Care Team (Late st Contact Info) Description 12/23/2022 MyC Medical Advice [facility] [id number] [place] [address] Lauren Claudio PA-C [address] [place] [address] Social History Tobacco Use Types [...] How often do you attend zoroastrianism or faith serv ices? Never 09/22/2021 Do [...] PHQ-2 Score 1 10/11/2022 [facility] [place] of Occupat ional Health - Occupational Stress [...] in a mcfp (including now)? No 09/22/2021 [place] Depression Scale Answer Date Recorded [place] Depression Score 5 01/14/2021 Last EPDS Self [...] [facility] Spine and Neurosurgery [address] [facility] [address] [place] [phone] Ebony Cid, FRENCH BINDING FOLDER MUNICIPAL MAINTENANCE WORKER 500 [place] [address] 03/27/2024 11:00 AM CDT Office Visit [facility] [address] [place] [phone] Jelena David, [address] [facility] [place] [address] 04/19/2024 2:45 PM CDT Office Visit [address] [phone] Audrey Waite PA-C [address] [facility] [address], [facility] 603 [place], [place] 390645 05/08/2024 1:30 PM CDT Office Visit [facility] [address] [place] [phone] Lauren Claudio PA-C [address] [place], [place] [phone] Esha Grimm PA-C [address] [place] [address] 06/21/2024 2:00 PM ERP ENGINEER Office Visit [facility]rology [facility] [place] [address] [facility], [address] [place] [phone] [place] [address] [place], [place] [phone] Johnny Penn MD 3739 [facility] [place], [place] [address] Scheduled Procedures Name Priority Associated Diagnoses Date/Ti [...] documented as of this encounter Care Teams Wooden Fence Erector Relationship Specialty Start Date End Date Marija Edgar APRN MUNICIPAL MAINTENANCE WORKER PCP - General Nurse Practitioner 04/30/20 04/14/23 Esha Grimm PA-C [address] [place] [phone] PCP - General Family Medicine 05/04/23 Lita Oseguera Personal Advocate & Liaison (PAL) 02/28/20 03/27/23 Marija Edgar APRN MUNICIPAL MAINTENANCE WORKER Assigned PCP 06/08/20 04/29/23 Keisha Dotson MD 909 [place] [address] Assigned Neuroscience Provider 06/04/20 04/01/23 Diana Desir [facility] 3033 [place], [place] 782666 Pharmacist Pharmacist 04/17/21 Rain Galaviz PA-C [address] [place] [address] [address] [place] [address] Physician Volunteer Manager Dermatology 04/28/21 Tavia Wyatt MD [address] [place] [address] [address] [place] [address] Dermatology 07/14/21 Erica Farrell APRN MUNICIPAL MAINTENANCE WORKER [address] [place], [place] 843875 Nurse Practitioner Cardiovascular Disease 09/09/21 Rich Barrett MD [address] [place] [address] 043675 Physician Ophthalmology 01/21/22 Neil Kent MD [address] [place] [address] 968625 Dermatology 02/24/22 [facility] [address] [place] [address] 026226 Assigned [place] Pharmacist 04/07/22 Livan Sharif MD [address], [facility] [place] 054675 Cardiovascular Disease 05/14/22 Catherine Cm MD [address] [facility] [place] 092045 Cardiovascular Disease 07/21/22 Valery Veronica PA-C [address] [place] [address] Physician Volunteer Manager Dermatology 07/21/22 Brea Quinn APRN MUNICIPAL MAINTENANCE WORKER 500 [place] [address] Nurse Practitioner Dermatology 09/21/22 Brea Quinn APRN MUNICIPAL MAINTENANCE WORKER [address] [facility] [place] [address] Assigned Surgical Provider 10/09/22 [place] [address] [facility] 300 [place] [address] Assigned Musculoskeletal Provider 10/09/22 Catherine Cm MD [address] [facility] [address] [place] [address] Assigned Heart and Vascular Provider 11/13/22 05/27/23 Sydnie Martinez RN Personal Advocate & Liaison (PAL) Family Medicine 03/28/23 07/31/23 Alfonso Renteria MD 5775 [facility] 200 [place] [address] Assigned Neuroscience Provider 04/02/23 Cheng Todd PA-C [address] [place] [address] [phone] Assigned PCP 04/30/23 07/15/23 Radha Lomeli APRN MUNICIPAL MAINTENANCE WORKER [address] [place] 117055 Assigned Heart and Vascular Provider 05/28/23 Jelena David OD [address] [place] [address] MD Ophthalmology 06/15/23 Pao Joseph, RN Personal Advocate & Liaison (PAL) Nurse 08/01/23 11/07/23 Esha Grimm PA-C [address] [place] [phone] Assigned PCP 07/16/23 Valery Veronica PA-C [address] [place] [address] 993805 Physician Volunteer Manager Dermatology 09/19/23 Rey Tay MD [address] [place] [address] 328175 MD Gastroenterology 09/20/23 Rocky Zepeda DO [address] [place] [address] 800595 Physician Gastroenterology 09/20/23 Philip Dumont MD [address] [place] [address] 733155 Physician Ophthalmology 09/22/23 Meredith Carrera PA-C [address] [place] [address] 052905 Assigned Gastroenterology Provider 11/01/23 Neil Kent MD [address] [address] Dermatology 11/02/23 [place] [address] [place] [address] Neurological Surgery 12/26/23 Audrey Waite PA-C 500 [place], [place] 216245 Physician Volunteer Manager Dermatology 02/28/24 documented as of this encounter
--- OUTSIDE RECORDS SUMMARY | 2024-03-12 19:37 | XMS_ITS | Encounter Summary ---
Author Organization [place] Address [address] [place] [address] Care Team Providers Care Director Of Global Marketing Name Role Phone Lita Oseguera Unavailable Unavailable Marija Edgar APRN PET TRAINER Primary Care Provider U Marija Bella APRN PET TRAINER Unavailable Unavail able Keisha Dotson MD Unavailable [phone] Unavailable [phone] Rain Galaviz PA-C Unavailable [phone] Tavia Wyatt MD Unavailable Unavailable Erica Farrell APRN PET TRAINER Unavailable Rich Barrett MD Unavailable [phone] Neil Kent MD Unavailable Diana Desir [facility] Unavailable [phone] Livan Sharif MD Unavailable Catherine Cm MD Unavailable + Valery Veronica PA-C Unavailable [phone] Catherine Cm MD Unavailable + Brea Quinn APRN PET TRAINER Unavailable [phone] Brea Quinn APRN PET TRAINER Unavailable [phone] Jose Francisco Johnson MD Unavailable Livan Sharif MD Unavailable Catherine Cm MD Unavailable + Sydnie Martinez RN Unavailable Unavailable Alfonso Renteria MD Unavailable [phone] Esha Grimm PA-C Primary Care Provider [phone] Cheng Todd PA-C Unavailable Armani Radha Stovall APRN PET TRAINER Unavailable Jelena David OD Unavailable [phone] Pao Joseph RN Unavailable Unavailable Esha Grimm PA-C Unavailable Valery Veronica PA-C Unavailable Rey Tay MD Unavailable Rocky Zepeda DO Unavailable Philip Dumont MD Unavailable [phone] Meredith Carrera PA-C Unavailable [phone] eNil Kent MD Unavailable Juan Pablo Emmanuel MD Unavailable Audrey Waite PA-C Unavailable [phone] Encounter Details Date Type Department Care Team (Late st Contact Info) Description 10/22/2022 MyC Medical Advice [facility] [address] [place] [address] Lauren Claudio PA-C [address] [place] [address] Social History Tobacco Use Types [...] How often do you attend restoration or hoahaoism serv ices? Never 09/22/2021 Do [...] Answer Date Recorded PHQ-2 Score 1 10/11/2022 [facility] [place] of Occupat ional Health - Occupational Stress [...] in a alf (including now)? No 09/22/2021 [place] Depression Scale Answer Date Recorded [place] Depression Score 5 01/14/2021 Last EPDS Self [...] Description 03/26/2024 11:20 AM CDT Office Visit [facility] Spine and Neurosurgery [address] [facility] [address] [place] [address] Ebony Cid, JAVASCRIPT ENGINEER [facility] 500 [place], [place] 808515 03/27/2024 11:00 AM CDT Office Visit [facility] [address] [facility] [address] [place] [phone] Jelena David, 3[address] [facility] [place] [address] 04/19/2024 2:45 PM CDT Office Visit [facility] 830 [place] [address] Audrey Waite PA-C 420 [facility] [address], [facility] 603 [place] [address] 05/08/2024 1:30 PM CDT Office Visit [facility] [address] [place] [phone] Lauren Claudio PA-C [address] [place], [place] [phone] Esha Grimm PA-C [address] [place] [address] 06/21/2024 2:00 PM CIRCLE SAW OPERATOR Office Visit [facility] Neurology Clinics - [place] [address] [facility], [address] [place] [address] [place] [address] [place] [address] Johnny Penn MD [address] [place], [place] [address] Scheduled Procedures Name Priority Associated Diagnoses Date/Ti fl ESOPHAGOGASTRODUODENOSCOPY Eosinophilic esophagitis Esophageal dysphagia documented as [...] of this encounter Care Teams Director Of Global Marketing Relationship Specialty Start Date End Date Marija Edgar APRN PET TRAINER PCP - General Nurse Practitioner 04/30/20 04/14/23 Esha Grimm PA-C [address] [place] [phone] PCP - General Family Medicine 05/04/23 Lita Oseguera Personal Advocate & Liaison (PAL) 02/28/20 03/27/23 Marija Edgar APRN PET TRAINER Assigned PCP 06/08/20 04/29/23 Keisha Dotson MD 909 [place] [address] Assigned Neuroscience Provider 06/04/20 04/01/[address] [facility] [facility] [address] [place] [address] Pharmacist Pharmacist 04/17/21 Rain Galaviz PA-C [address] [place] [address] [address] [place] [address] Physician Pipe Puller Dermatology 04/28/21 Tavia Wyatt MD [address] [place] [address] [address] [place] [address] Dermatology 07/14/21 Erica Farrell APRN [facility] [address] [place] [address]8475 Nurse Practitioner Cardiovascular Disease 09/09/21 Rich Barrett MD [address] [place] [address], [facility] [address] [place], [place] 3639[address] Physician Ophthalmology 01/21/22 Neil Kent MD [address] [place] [address] Dermatology 02/24/22 [facility] [place] [address] Assigned MTM Pharmacist 04/07/22 Livan Sharif MD [address] [place] [address] [place] [address] Cardiovascular Disease 05/14/22 Catherine Cm MD [address] [place] [address] [place] [address] Cardiovascular Disease 07/21/22 Valery Veronica PA-C [address] [place] [address] Physician Pipe Puller Dermatology 07/21/22 Catherine Cm MD [address] [place] 4010000 [place] [address] Assigned Heart and Vascular Provider 07/24/22 11/05/22 Brea Quinn APRN PET TRAINER [address] [place] [address] 294415 Nurse Practitioner Dermatology 09/21/22 Brea Quinn APRN PET TRAINER [address] [place] [address] Assigned Surgical Provider 10/09/22 [place] [address] [address] Assigned Musculoskeletal Provider 10/09/22 Livan Sharif MD [address] [place] 5376100 [place] [address] Assigned Heart and Vascular Provider 11/06/22 11/12/22 Catherine Cm MD [address] [facility] [place] 473365 Assigned Heart and Vascular Provider 11/13/22 05/27/23 Sydine Martinez, RN Personal Advocate & Liaison (PAL) Family Medicine 03/28/23 07/31/23 Alfonso Renteria MD 5775 [facility] 200 [place] [address] Assigned Neuroscience Provider 04/02/23 Cheng Todd PA-C [address] [place] [address] [phone] Assigned PCP 04/30/23 07/15/23 Radha Lomeli APRN PET TRAINER [address] [address] Assigned Heart and Vascular Provider 05/28/23 Jelena David OD [address] [facility] [place] [address] Ophthalmology 06/15/23 Pao Joseph RN Personal Advocate & Liaison (PAL) Nurse 08/01/23 11/07/23 Esha Grimm PA-C [address] [place] [address]-928883 Assigned PCP 07/16/23 Valery Veronica PA-C [address] [place] [address] Physician Pipe Puller Dermatology 09/19/23 Rey Tay MD [address] [place] [address] 446425 Gastroenterology 09/20/23 Rocky Zepeda DO [address] [place] [address] 078605 Physician Gastroenterology 09/20/23 Philip Dumont MD 6 [place], [place] 749195 Physician Ophthalmology 09/22/23 Meredith Carrera PA-C [address] [place] [address] 438325 Assigned Gastroenterology Provider 11/01/23 Neil Kent MD [address] [phone] Dermatology 11/02/23 [place] [address] [place] [address] Neurological Surgery 12/26/23 Audrey Waite PA-C [address] [place] [address] [phone] Physician Pipe Puller Dermatology 02/28/24 documented as of this encounter
--- OUTSIDE RECORDS SUMMARY | 2024-03-12 19:37 | XMS_ITS | Encounter Summary ---
Author Organization [place] Address [address] [place] [address] Care Team Providers Care Investigations Chief Name Role Phone Lita Oseguera Unavailable Unavailable Marija Edgar APRN FORGING DIE SINKER Primary Care Provider U Marija Bella APRN FORGING DIE SINKER Unavailable Unavail able Keisha Dotson MD Unavailable [phone] Diana Desir [facility] Unavailable [phone] Rain Galaviz PA-C Unavailable [phone] Tavia Wyatt MD Unavailable Unavailable Erica Farrell APRN FORGING DIE SINKER Unavailable Rich Barrett MD Unavailable [phone] Neil Kent MD Unavailable Diana Desir [facility] Unavailable [phone] Livan Sharif MD Unavailable Catherine Cm MD Unavailable + Valery Veronica PA-C Unavailable [phone] Ctaherine Cm MD Unavailable + Brea Quinn APRN FORGING DIE SINKER Unavailable [phone] Brea Quinn APRN FORGING DIE SINKER Unavailable [phone] Jose Francisco Johnson MD Unavailable Livan Sharif MD Unavailable Catherine Cm MD Unavailable + Sydnie Martinez RN Unavailable Unavailable Alfonso Renteria MD Unavailable [phone] Esha Grimm PA-C Primary Care Provider Cheng Todd PA-C Unavailable Radha Lomeli APRN FORGING DIE SINKER Unavailable Jelena David OD Unavailable [phone] Pao Joseph RN Unavailable Unavailable Esha Grimm PA-C Unavailable [phone] Valery Veronica PA-C Unavailable [phone] Rey Tay MD Unavailable Rocky Zepeda DO Unavailable Philip Dumont MD Unavailable [phone] Meredith Carrera PA-C Unavailable [phone] Neil Kent MD Unavailable Juan Pablo Emmanuel MD Unavailable Audrey Waite PA-C Unavailable Reason for Visit * Reason Onset Date Comments MyChart Communication 10/27/2022 Encounter Details Date Type Department Care Team (Late st Contact Info) Description 10/27/2022 MyC Medical [facility] 64[address] [facility] [place] [address] Brea Quinn, SUPERVISOR FUSING ROOM FORGING DIE SINKER 6401 [facility] [place] [address] MyChart Communication (/) Social History Tobacco [...] How often do you attend christianity or judaism serv ices? Never 09/22/2021 Do [...] in a long-term (including now)? No 09/22/2021 [place] Depression Scale Answer Date Recorded [place] Depression Score 5 01/14/2021 Last EPDS Self [...] and advise. Letha Driver RN [facility] [place] [phone] documented in this encounter Plan of Treatment Upcoming Encounters Date Type Department Care Team (Late st Contact Info) Description 03/26/2024 11:20 AM CDT Office Visit [facility] Spine and Neurosurgery 17[address] [facility] 100 [place] [address] Ebony Cid, [facility] 500 [place] [address] 03/27/2024 11:00 AM CDT Office Visit [facility] [address] [facility] [address] [place] [phone] Jelena David, [place] [address] [facility] [place] [address] 04/19/2024 2:45 PM CDT Office Visit [facility] 830 [place] [phone] Audrey Waite PA-C [address] [place] [address] [address]385, [facility] 603 [place] [address] 05/08/2024 1:30 PM CDT Office Visit [facility] [address] [place] [phone] Lauren Claudio PA-C [address] [place], [place] [phone] Esha Grimm PA-C [address] [place] [address]28[address] 06/21/2024 2:00 PM VENETIAN BLIND CLEANER AND REPAIRER Office Visit [facility] Neurology [facility] [address] [place] [address], [address] [place] [address] [place] [address] [place] [address] Johnny Penn MD 6545 [place] [address] Scheduled Procedures Name Priority Associated [...] documented as of this encounter Care Teams Investigations Chief Relationship Specialty Start Date End Date Marija Edgar APRN CNP PCP - General Nurse Practitioner 04/30/20 04/14/23 Esha Grimm PA-C [address] [place] [address] PCP - General Family Medicine 05/04/23 Lita Oseguera Personal Advocate & Liaison (PAL) 02/28/20 03/27/23 Mraija Edgar APRN FORGING DIE SINKER Assigned PCP 06/08/20 04/29/23 Keisha Dotson MD 909 [place] [address] Assigned Neuroscience Provider 06/04/20 04/01/23 Diana Desir, [facility] [address] [place] [address] Pharmacist Pharmacist 04/17/21 Rain Galaviz PA-C [address] [place] [address] [address] [place] [address] Physician Staffing Specialist Dermatology 04/28/21 Tavia Wyatt MD [address] [place] [address] [address] [place] [address] Dermatology 07/14/21 Erica Farrell APRN FORGING DIE SINKER [address] [place] [address] Nurse Practitioner Cardiovascular Disease 09/09/21 Rich Barrett MD [address] 629325 Physician Ophthalmology 01/21/22 Neil Kent MD [address] [place] [address] 233215 Dermatology 02/24/22 Diana Desir, [facility] 3033 [place] [address] Assigned MTM Pharmacist 04/07/22 Livan Sharif MD [address], [facility] [address] [place] [address] Cardiovascular Disease 05/14/22 Catherine Cm MD [address] [facility] [address] [place] 335865 Cardiovascular Disease 07/21/22 Valery Veronica, PAUcheC [address] [place] [address] 274575 Physician Staffing Specialist Dermatology 07/21/22 Catherine Cm MD [address] [facility] [address] [place] [address] Assigned Heart and Vascular Provider 07/24/22 11/05/22 Brea Quinn APRN FORGING DIE SINKER [address] [place] [address] 984915 Nurse Practitioner Dermatology 09/21/22 Brea Quinn APRN FORGING DIE SINKER [address] [place] [address] Assigned Surgical Provider 10/09/22 [place] [address] [address] Assigned Musculoskeletal Provider 10/09/22 Livan Sharif MD [address] [facility] [address] [place] [address] Assigned Heart and Vascular Provider 11/06/22 11/12/22 Catherine Cm MD [address] [facility] [address] [place] [address] Assigned Heart and Vascular Provider 11/13/22 05/27/23 Sydnie Martinez, RN Personal Advocate & Liaison (PAL) Family Medicine 03/28/23 07/31/23 Alfonso Renteria MD 5775 [facility] 200 [place] [address] Assigned Neuroscience Provider 04/02/23 Cheng Todd PA-C [address] [place] [address] Assigned PCP 04/30/23 07/15/23 Radha Lomeli APRN FORGING DIE SINKER [address] [place] [address] Assigned Heart and Vascular Provider 05/28/23 Jelena David OD [facility]5 [facility] [place] [address] Ophthalmology 06/15/23 Pao Joseph, VJ Personal Advocate & Liaison (PAL) Nurse 08/01/23 11/07/23 Esha Grimm PA-C [address] [place] [address] Assigned PCP 07/16/23 Valery Veronica PA-C [address] [place] [address] Physician Staffing Specialist Dermatology 09/19/23 Rey Tay MD 9 [place] [address] MD Gastroenterology 09/20/23 Rocky Zepeda DO [address] [place] [address] Physician Gastroenterology 09/20/23 Philip Dumont MD [address] [place] [address] Physician Ophthalmology 09/22/23 Meredith Carrera PA-C [address] [place] [address] Assigned Gastroenterology Provider 11/01/23 Neil Kent MD [address] [address] Dermatology 11/02/23 [place] [address] [place] [address] Neurological Surgery 12/26/23 Audrey Waite PA-C [address] [place] [address] Physician Staffing Specialist Dermatology 02/28/24 documented as of this encounter
--- OUTSIDE RECORDS SUMMARY | 2024-03-12 19:37 | XMS_ITS | Encounter Summary ---
Author Organization [place] Address [address] [place] [address] Care Team Providers Care Ground Wirer Name Role Phone Lita Oseguera Unavailable Unavailable Marija Edgar APRN, CNP Primary Care Provider U Marija Bella APRN, CNP Unavailable Unavail able Keisha Dotson MD Unavailable [phone] Diana Desir [facility] Unavailable [phone] Rain Galaviz PA-C Unavailable Tavia Wyatt MD Unavailable Unavailable Erica Farrell APRN CP BLEACHER OPERATOR Unavailable Rich Barrett MD Unavailable [phone] Neil Kent MD Unavailable Diana Desir [facility] Unavailable [phone] Livan Sharif MD Unavailable Catherine Cm MD Unavailable + Valery Veronica PA-C Unavailable [phone] Brea Quinn APRN CP BLEACHER OPERATOR Unavailable [phone] Brea Quinn APRN CP BLEACHER OPERATOR Unavailable [phone] Jose Francisco Johnson MD Unavailable Catherine Cm MD Unavailable + Sydnie Martinez RN Unavailable Unavailable Alfonso Renteria MD Unavailable [phone] Esha Grimm PA-C Primary Care Provider Cheng Todd PA-C Unavailable Radha Lomeli APRN CP BLEACHER OPERATOR Unavailable Jelena David OD Unavailable [phone] Pao Joseph RN Unavailable Unavailable Esha Grimm PA-C Unavailable [phone] Valery Veronica PA-C Unavailable Rey Tay MD Unavailable Rocky Zepeda DO Unavailable Philip Dumont MD Unavailable Meredith Carrera PA-C Unavailable Neil Kent MD Unavailable Juan Pablo Emmanuel MD Unavailable [phone] Audrey Waite PA-C Unavailable Encounter Details Date Type Department Care Team (Late st Contact Info) Description 01/10/2023 MyC Medical Advice [facility] [address] [place] [address] Lauren Claudio PA-C [address] [place] [address] Social History Tobacco Use Types [...] How often do you attend mandaeism or catholic serv ices? Never 09/22/2021 Do [...] Answer Date Recorded PHQ-2 Score 1 10/11/2022 [facility] [place] of Occupat ional Health - Occupational Stress [...] in a fci (including now)? No 09/22/2021 [place] Depression Scale Answer Date Recorded [place] [...] - 02/03/2023 11:52 AM CDT Incoming call Stamping Die Maker: Rosalva Byron [facility] referral following up on [facility] med information that is needed to be faxed at [phone] Erica David MA documented in this encounter Plan of Treatment Upcoming Encounters Date Type Department Care Team (Late st Contact Info) Description 03/26/2024 11:20 AM CDT Office Visit [facility] 1747 [facility] 100 [place] [address] Ebony Cid APRN [facility] 500 [place] [address] 03/27/2024 11:00 AM CDT Office Visit [facility] [place] [address] [facility] [address] [place] [phone] Jelena David, 3305 [facility] [place] [address] 04/19/2024 2:45 PM CDT [facility] Visit [facility] [address] [place] [phone] Audrey Waite PA-C [address], [facility] 603 [place] [address] 05/08/2024 1:30 PM CDT Office Visit [facility] [address] [place] [address] Lauren Claudio PA-C [address] [place], [place] [phone] Esha Grimm PA-C [address] [place] [address] 06/21/2024 2:00 PM LEGUILLON DEBEADER Office Visit [facility] [address] [place] [address], [address] [place] [address] [place] [address] [address] Johnny Penn MD 6545 [place], [place] [phone] Scheduled Procedures Name Priority Associated Diagnoses Date/Ti [...] as of this encounter Care Teams Ground Wirer Relationship Specialty Start Date End Date Marija Edgar APRN CP BLEACHER OPERATOR PCP - General Nurse Practitioner 04/30/20 04/14/23 Esha Grimm PA-C 24[address] [facility] [address] PCP - General Family Medicine 05/04/23 Lita Oseguera Personal Advocate & Liaison (PAL) 02/28/20 03/27/23 Marija Edgar APRN CP BLEACHER OPERATOR Assigned PCP 06/08/20 04/29/23 Keisha Dotson MD 909 [place], [place] 136[address] Assigned Neuroscience Provider 06/04/20 04/01/23 Diana Desir, [facility] [address] [place], [place] [address] Pharmacist Pharmacist 04/17/21 Rain Galaviz PA-C [address] [place] [address] [address] [place] [address] Physician Flag Football Coach Dermatology 04/28/21 Tavia Wyatt MD [address] [place] [address] [address] [place] [address] Dermatology 07/14/21 Erica Farrell APRN CP BLEACHER OPERATOR [address] [place] [address] Nurse Practitioner Cardiovascular Disease 09/09/21 Rich Barrett MD 516 [facility] 9A [place], [place] 868745 Physician Ophthalmology 01/21/22 Neil Kent MD 500 [place] [address] Dermatology 02/24/22 Diana Desir, [facility] 3033 [place] [address] Assigned [place] Pharmacist 04/07/22 Livan Sharif MD [address], [address] [place] [id number] Cardiovascular Disease 05/14/22 Catherine Cm MD [address] [place] 334275 Cardiovascular Disease 07/21/22 Valery Veronica, PA-C 909 [place] [address] Physician Flag Football Coach Dermatology 07/21/22 Brea Quinn APRN CP BLEACHER OPERATOR 500 [place] [address] Nurse Practitioner Dermatology 09/21/22 Brea Quinn APRN CP BLEACHER OPERATOR [address] [place] [address] Assigned Surgical Provider 10/09/22 [place] [address] [place] [address] Assigned Musculoskeletal Provider 10/09/22 Catherine Cm MD [address] [place], [place] 965405 Assigned Heart and Vascular Provider 11/13/22 05/27/23 Sydnie Martinez, RN Personal Advocate & Liaison (PAL) Family Medicine 03/28/23 07/31/23 Alfonso Renteria MD 5775 [facility] 200 [place], [place] 619116 Assigned Neuroscience Provider 04/02/23 Cheng Todd PA-C [address] [place] [address] [phone] Assigned PCP 04/30/23 07/15/23 Radha Lomeli APRN CP BLEACHER OPERATOR [address] [place], [place] 408225 Assigned Heart and Vascular Provider 05/28/23 Jelena David OD [address] [facility] [address] [place] [phone] Ophthalmology 06/15/23 Pao Joseph RN Personal Advocate & Liaison (PAL) Nurse 08/01/23 11/07/23 Esha Grimm PA-C [address] [place] [address] Assigned PCP 07/16/23 Valery Veronica PA-C [address] [place] [address] 541925 Physician Flag Football Coach Dermatology 09/19/23 Rey Tay MD [address] [place] [address] [id number] MD Gastroenterology 09/20/23 Rocky Zepeda DO [address] [place], [place] 708575 Physician Gastroenterology 09/20/23 Philip Dumont MD [address] [place] [address] 994555 Physician Ophthalmology 09/22/23 Meredith Carrera PA-C [address] [place] [address] 002855 Assigned Gastroenterology Provider 11/01/23 Neil Kent MD [address] [address] Dermatology 11/02/23 [place] [address] 775037 Neurological Surgery 12/26/23 Audrey Waite PA-C [address] [place] [address] Physician Flag Football Coach Dermatology 02/28/24 documented as of this encounter
--- OUTSIDE RECORDS SUMMARY | 2024-03-12 19:37 | XMS_ITS | Encounter Summary ---
Author Organization [place] Address [address] [place] [address] Care Team Providers Care Client Leader Name Role Phone Marija Edgar APRN MAORI LIAISON ADVISER Primary Care Provider Marija Emery APRN, CNP Unavailable Unavail able Keisha Dotson MD Unavailable [phone] Diana Desir [facility] Unavailable [phone] Rain Galaviz PA-C Unavailable Tavia Wyatt MD Unavailable Unavailable Erica Farrell APRN MAORI LIAISON ADVISER Unavailable Rich Barrett MD Unavailable [phone] Neil Kent MD Unavailable Diana Desir [facility] Unavailable [phone] Livan Sharif MD Unavailable Catherine Cm MD Unavailable + Valery Veronica PA-C Unavailable [phone] Brea Quinn APRN MAORI LIAISON ADVISER Unavailable [phone] Brea Quinn APRN MAORI LIAISON ADVISER Unavailable Jose Francisco Johnson MD Unavailable Catherine Cm MD Unavailable + Sydnie Martinez RN Unavailable Unavailable Alfonso Renteria MD Unavailable [phone] Esha Grimm PA-C Primary Care Provider Cheng Todd PA-C Unavailable [phone] Radha Lomeli APRN MAORI LIAISON ADVISER Unavailable [phone] Frankie Jelena Garcia OD Unavailable Pao Joseph RN Unavailable Unavailable Esha Grimm-C Unavailable [phone] Valery Veronica PA-C Unavailable Rey Tay MD Unavailable Rocky Zepeda DO Unavailable Philip Dumont MD Unavailable [phone] Meredith Carrera PA-C Unavailable [phone] Neil Kent MD Unavailable Juan Pablo Emmanuel MD Unavailable [phone] Audrey Waite PA-C Unavailable [phone] Encounter Details Date Type Department Care Team (Late st Contact Info) Description 03/29/2023 MyC Medical Advice [address] [address] Diana Desir, [facility] 3030 [place] [address] Social History Tobacco Use Types [...] How often do you attend [facility] or shinto services? 1 to 4 [...] Answer Date Recorded PHQ-2 Score 0 03/10/2023 [facility] [place] of Occupat ional Health - Occupational Stress [...] slept in a fpc (including now)? No 03/10/2023 [place] Depression Scale Answer Date Recorded [place] Depression Score 5 01/14/2021 Last EPDS Self [...] 03/26/2024 11:20 AM CDT Office Visit [facility] Spine and Neurosurgery 1747 [facility] [address] [place] [phone] Ebony Cid, ARLENE MAORI LIAISON ADVISER 500 [facility] [place] [address] 03/27/2024 11:00 AM CDT Office Visit [facility] [address] [facility] [address] [place] [phone] Jelena David, 3305 [facility] [place] [id number] 04/19/2024 2:45 PM CDT Office Visit [facility] 830 [place] [phone] Audrey Waite PA-C 420 [facility] [address], [facility] 603 [place], [place] 8[address] 05/08/2024 1:30 PM CDT Office Visit [facility] [address] [place] [phone] Lauren Claudio PA-C [address] [place], [place] [phone] Esha Grimm PA-C [address] [place] [address] 06/21/2024 2:00 PM STEWARD/STEWARDESS CLUB CAR Office Visit [facility] [place] 6545 [facility], [address] [place] [phone] [place] [address] [place] [address] Johnny Penn MD 5139 [facility] [place], [place] [address] Scheduled Procedures Name Priority Associated Diagnoses Date/Ti [...] as of this encounter Care Teams Client Leader Relationship Specialty Start Date End Date Marija Edgar APRN MAORI LIAISON ADVISER PCP - General Nurse Practitioner 04/30/20 04/14/23 Esha Grimm PA-C 10305 [place] [address] PCP - General Family Medicine 05/04/23 Marija Edgar APRN MAORI LIAISON ADVISER Assigned PCP 06/08/20 04/29/23 Keisha Dotson MD 909 [place], [place] 211415 Assigned Neuroscience Provider 06/04/20 04/01/23 Diana Desir, [facility] [address] [place], [place] 043916 Pharmacist Pharmacist 04/17/21 Rain Galaviz PA-C [address] [place] [address] [place] [address] Physician Dining Room Busser Dermatology 04/28/21 Tavia Wyatt MD [address] [place] [address] [address] [place] [address] Dermatology 07/14/21 Erica Farrell APRN MAORI LIAISON ADVISER [address] [place], [place] 5[address] Nurse Practitioner Cardiovascular Disease 09/09/21 Rich Barrett MD 516 [facility] 9A [place], [place] 94[address] Physician Ophthalmology 01/21/22 Neil Kent MD 500 [place], [place] 439595 MD Dermatology 02/24/22 [facility] 3033 [place], [place] 610686 Assigned [place] Pharmacist 04/07/22 Livan Sharif MD [address], [email or web address] [address] [place], [place] 041655 Cardiovascular Disease 05/14/22 Catherine Cm MD [address] [facility]00 [place], [place] 0746[address] Cardiovascular Disease 07/21/22 Valery Veronica, PA-C [address] [place] [address] 851445 Physician Dining Room Busser Dermatology 07/21/22 Brea Quinn APRN MAORI LIAISON ADVISER 500 [place] [address] Nurse Practitioner Dermatology 09/21/22 Brea Quinn APRN MAORI LIAISON ADVISER [address] [place] [address] Assigned Surgical Provider 10/09/22 [place] [address] [place] [address] Assigned Musculoskeletal Provider 10/09/22 Catherine Cm MD [address] [facility] [[email or web address] [address] [place] [address] Assigned Heart and Vascular Provider 11/13/22 05/27/23 Sydnie Martinez RN Personal Advocate & Liaison (PAL) Family Medicine 03/28/23 07/31/23 Alfonso Renteria MD 5775 [facility] 200 [place], [place] 575766 Assigned Neuroscience Provider 04/02/23 Cheng Todd PA-C [address] [place] [address] [id number] Assigned PCP 04/30/23 07/15/23 Radha Lomeli APRN MAORI LIAISON ADVISER 6405 [facility] [address] [place] 346[address] Assigned Heart and Vascular Provider 05/28/23 Jelena David OD 3305 [facility] [place] [address] MD Ophthalmology 06/15/23 Pao Joseph, RN Personal Advocate & Liaison (PAL) Nurse 08/01/23 11/07/23 Esha Grimm PA-C [address] [place] [address] Assigned PCP 07/16/23 Valery Veronica PA-C [address] [place] [address] 036235 Physician Dining Room Busser Dermatology 09/19/23 Rey Tay MD [address] [place] [address] 074475 MD Gastroenterology 09/20/23 Rocky Zepeda DO [address] [place] [address] 611865 Physician Gastroenterology 09/20/23 Philip Dumont MD [address] [place] [address] 987225 Physician Ophthalmology 09/22/23 Meredith Carrera PA-C [address] [place] [address] 289255 Assigned Gastroenterology Provider 11/01/23 Neil Kent MD [address] 435[address] Dermatology 11/02/23 [place] [address] [place] [address] Neurological Surgery 12/26/23 Audrey Waite PA-C 500 [place], [place] 957525 Physician Dining Room Busser Dermatology 02/28/24 documented as of this encounter
--- OUTSIDE RECORDS SUMMARY | 2024-03-12 19:37 | XMS_ITS | Encounter Summary ---
Author Organization [place] Address [address] [place] [address] Care Team Providers Care Refinery Operator Polymerization Plant Name Role Phone Lita Oseguera Unavailable Unavailable Marija Edgar APRN, CNP Primary Care Provider U Marija Bella APRN, CNP Unavailable Unavail able Keisha Dotson MD Unavailable [phone] Diana Desir [facility] Unavailable [phone] Rain Galaviz PA-C Unavailable Tavia Wyatt MD Unavailable Unavailable Erica Farrell APRN SHAFT MECHANIC Unavailable Rich Barrett MD Unavailable [phone] Neil Kent MD Unavailable Diana Desir [facility] Unavailable [phone] Livan Sharif MD Unavailable Catherine Cm MD Unavailable + Valery Veronica PA-C Unavailable [phone] Brea Quinn APRN SHAFT MECHANIC Unavailable [phone] Brea Quinn APRN SHAFT MECHANIC Unavailable [phone] Jose Francisco Johnson MD Unavailable Catherine Cm MD Unavailable + Sydnie Martinez RN Unavailable Unavailable Alfonso Renteria MD Unavailable [phone] Esha Grimm PA-C Primary Care Provider Perez Chengjc Fish PA-C Unavailable Armani Radha Stovall ARLENE SHAFT MECHANIC Unavailable Frankie Jelena Templetone OD Unavailable Pao Joseph RN Unavailable Unavailable Esha Grimm PA-C Unavailable [phone] Valery Veronica PA-C Unavailable Rey Tay MD Unavailable Rocky Zepeda DO Unavailable Philip Dumont MD Unavailable Meredith Carrera PA-C Unavailable Neil Kent MD Unavailable Juan Pablo Emmanuel MD Unavailable [phone] Audrey Waite PA-C Unavailable [phone] Encounter Details Date Type Department Care Team (Late st Contact Info) Description 01/28/2023 MyC Medical Advice [facility] Heart [address] [place] [address] Margaret Rendon, VJ Social History Tobacco Use Types Packs/Day [...] How often do you attend rastafarian or denominational serv ices? Never 09/22/2021 Do you belong [...] Answer Date Recorded PHQ-2 Score 1 10/11/2022 [facility] [place] of Occupat ional Health - Occupational Stress [...] in a jail (including now)? No 09/22/2021 [place] Depression Scale Answer Date Recorded Wilson [...] Description 03/26/2024 11:20 AM CDT Office Visit [facility] Spine and Neurosurgery [address] [facility] [address] [place] [address] Ebony Cid APRN SHAFT MECHANIC 500 [place], [place] [address]35 03/27/2024 11:00 AM CDT [facility] 3305 [facility] [address] [place] [phone] Jelena David, OD 3305 [facility] [place] [address] 04/19/2024 2:45 PM CDT Office Visit [facility] 830 [place] [phone] Audrey Waite PA-C 420 [facility] [address], [facility] 603 [place], [place] [address]25 05/08/2024 1:30 PM CDT Office Visit [facility] [address] [place] [phone] Lauren Claudio PA-C [address] [place], [place] [phone] Esha Grimm PA-C [address] [place] [address] 06/21/2024 2:00 PM FOXING PAINTER Office Visit [facility] [place] 6545 [facility], [address] [place] [phone] [place] [address] [place], [place] 75[address] Johnny Penn MD 6545 [place] [address] Scheduled Procedures Name Priority Associated Diagnoses Date/Ti [...] documented as of this encounter Care Teams Refinery Operator Polymerization Plant Relationship Specialty Start Date End Date Marija Edgar APRN SHAFT MECHANIC PCP - General Nurse Practitioner 04/30/20 04/14/23 Esha Grimm PA-C [address] [place] [address] PCP - General Family Medicine 05/04/23 Lita Oseguera Personal Advocate & Liaison (PAL) 02/28/20 03/27/23 Marija Edgar APRN SHAFT MECHANIC Assigned PCP 06/08/20 04/29/23 Keisha Dotson MD 909 [place] [address] Assigned Neuroscience Provider 06/04/20 04/01/23 Diana Desir [facility] 3033 [place], [place] 6[address]806 Pharmacist Pharmacist 04/17/21 Rain Galaviz PA-C [address] [place] [address] [address] [place] [address] Physician Veteran Appeals Reviewer Dermatology 04/28/21 Tavia Wyatt MD [address] [place] [address] [address] [facility] [place] [address] Dermatology 07/14/21 Erica Farrell APRN SHAFT MECHANIC [address] [place] [address] Nurse Practitioner Cardiovascular Disease 09/09/21 Rich Barrett MD [address] [place] [address] Physician Ophthalmology 01/21/22 Neil Kent MD [address] [place] [address] 60478455 MD Dermatology 02/24/22 Diana Desir, [facility] 3033 [place], [place] 974756 Assigned MTM Pharmacist 04/07/22 Livan Sharif MD [address] [place] [address] Cardiovascular Disease 05/14/22 Catherine Cm MD [address] [place] [address] Cardiovascular Disease 07/21/22 Valery Veronica, PA-C [address] [place] [address] 950265 Physician Veteran Appeals Reviewer Dermatology 07/21/22 Brea Quinn APRN SHAFT MECHANIC 500 [place] [address] Nurse Practitioner Dermatology 09/21/22 Brea Quinn APRN SHAFT MECHANIC 6401 [place] [address] Assigned Surgical Provider 10/09/22 [place] [address] [place], [place] 742217 Assigned Musculoskeletal Provider 10/09/22 Catherine Cm MD [address] [place] [address] Assigned Heart and Vascular Provider 11/13/22 05/27/23 Sydnie Martinez, VJ Personal Advocate & Liaison (PAL) Family Medicine 03/28/23 07/31/23 Alfonso Renteria MD 5775 [facility] 200 [place] [address] Assigned Neuroscience Provider 04/02/23 Cheng Todd PA-C [address] [place] [address] Assigned PCP 04/30/23 07/15/23 Radha Lomeli APRN SHAFT MECHANIC [address] [place] [address] Assigned Heart and Vascular Provider 05/28/23 Jelena David OD [facility] [facility] [place] [address] MD Ophthalmology 06/15/23 Pao Joseph, RN Personal Advocate & Liaison (PAL) Nurse 08/01/23 11/07/23 Esha Grimm PA-C [address] [place] [address] Assigned PCP 07/16/23 Valery Veronica PA-C [address] [place] [address] 297035 Physician Veteran Appeals Reviewer Dermatology 09/19/23 Rey Tay MD [address] [place] [address] 335295 MD Gastroenterology 09/20/23 Rocky Zepeda DO [address] [place] [address] 887165 Physician Gastroenterology 09/20/23 Philip Dumont MD [address] [place] [address] 264125 Physician Ophthalmology 09/22/23 Meredith Carrera PA-C [address] [place] [address] 583165 Assigned Gastroenterology Provider 11/01/23 Neil Kent MD [address] [address] Dermatology 11/02/23 [place] [address] [place] [address] Neurological Surgery 12/26/23 Audrey Waite PA-C 500 [place] [address] Physician Veteran Appeals Reviewer Dermatology 02/28/24 documented as of this encounter
--- OUTSIDE RECORDS SUMMARY | 2024-03-12 19:37 | XMS_ITS | Encounter Summary ---
Author Organization [facility] Address [address] [place] [address] Care Team Providers Care Planning Consultant Name Role Phone Lita Oseguera Unavailable Unavailable Marija Edgar APRN CARPENTER ROUGH Primary Care Provider U Marija Bella APRN CARPENTER ROUGH Unavailable Unavail able Keisha Dotson MD Unavailable [phone] Diana Desir [facility] Unavailable [phone] Rain Galaviz PA-C Unavailable [phone] Tavia Wyatt MD Unavailable Unavailable Erica Farrell APRN CARPENTER ROUGH Unavailable Rich Barrett MD Unavailable [phone] Neil Kent MD Unavailable Diana Desir [facility] Unavailable [phone] Livan Sharif MD Unavailable Catherine Cm MD Unavailable + Valery Veronica PA-C Unavailable [phone] Catherine Cm MD Unavailable + Brea Quinn APRN CARPENTER ROUGH Unavailable [phone] Brea Quinn APRN CARPENTER ROUGH Unavailable [phone] Jose Francisco Johnson MD Unavailable Livan Sharif MD Unavailable Catherine Cm MD Unavailable + Sydnie Martinez RN Unavailable Unavailable Alfonso Renteria MD Unavailable [phone] Esha Grimm PA-C Primary Care Provider Cheng Todd PA-C Unavailable Radha Lomeli APRN CARPENTER ROUGH Unavailable Jelena David OD Unavailable Pao Joseph RN Unavailable Unavailable Esha Grimm PA-C Unavailable [phone] Valery Veronica PA-C Unavailable Rey Tay MD Unavailable Rocky Zepeda DO Unavailable Philip Dumont MD Unavailable Meredith Carrera PA-C Unavailable Neil Kent MD Unavailable Juan Pablo Emmanuel MD Unavailable [phone] Audrey Waite PA-C Unavailable [phone] Reason for Visit * Reason Onset Date Comments Pt. Information/instruction 10/11/2022 Appointment 10/11/2022 Encounter Details Date Type Department Care Team (Late st Contact Info) Description 10/11/2022 Telephone [facility] [place] [address] [facility] [address] [place] [address] [place] [address] [place] [address] Pt. Information/instructio n; Appointment Social [...] How often do you attend druze or anglican serv ices? Never 09/22/2021 Do [...] Answer Date Recorded PHQ-2 Score 1 10/11/2022 [facility] [...] in a fpc (including now)? No 09/22/2021 [place] Depression Scale Answer Date Recorded [place] Depression Score 5 01/14/2021 Last EPDS Self [...] patient's upcoming appointment (10/27). Action Taken: Other: [facility] Sports Medicine Travel Screening: Not Applicable [...] Reason for Call: Other: Please contact patient's envelope adjusterRosalva so she can authorize patient's MRI. Rosalva's contact info: phone# [phone] fax# [phone] Action Taken: Other: [facility] Sports [facility] Travel Screening: Not Applicable documented in this encounter Plan of Treatment Upcoming Encounters Date Type Department Care Team (Late st Contact Info) Description 03/26/2024 11:20 AM CDT Office Visit [facility] Spine and Neurosurgery [address] [facility] [address] [place] [address] Ebony Cid, OUTSIDE SALES PROFESSIONAL [facility] 500 [place], [place] 273315 03/27/2024 11:00 AM CDT Office Visit [facility] [address] [facility] [address] [place] [phone] Jelena David, OD [address] [facility] [address] [place] [id number] 04/19/2024 2:45 PM CDT Office Visit [facility] 830 [place] [phone] Audrey Waite PA-C [address] [place] [address] B385, [facility] 603 [place], [place] 957715 05/08/2024 1:30 PM CDT Office Visit [facility] [address] [place] [phone] Lauren Claudio PA-C [address] [place], [place] [phone] Esha Grimm PA-C [address] [place] [address] 06/21/2024 2:00 PM HAND PAINTER Office Visit [facility] Neurology Clinics - [place] [address] [place] [address], [address] [place] [phone] [place] [address] [place] [address] Johnny Penn MD [address] [place] [address] Scheduled Procedures Name Priority Associated [...] as of this encounter Care Teams Planning Consultant Relationship Specialty Start Date End Date Marija Edgar APRN CARPENTER ROUGH PCP - General Nurse Practitioner 04/30/20 04/14/23 Esha Grimm PA-C [address] [place] [address] PCP - General Family Medicine 05/04/23 Lita Oseguera Personal Advocate & Liaison (PAL) 02/28/20 03/27/23 Marija Edgar APRN CARPENTER ROUGH Assigned PCP 06/08/20 04/29/23 Keisha Dotson MD 909 [place], [place] 782555 Assigned Neuroscience Provider 06/04/20 04/01/23 Diana Desir, [facility] [address] [place] [address] Pharmacist Pharmacist 04/17/21 Rain Galaviz PA-C [address] [place] [address] [address] [place] [address] Physician Primer Inserting Machine Operator Dermatology 04/28/21 Tavia Wyatt MD [address] [place] [address] [address] [place] [address] Dermatology 07/14/21 Erica Farrell APRN CARPENTER ROUGH [address] [place] 758175 Nurse Practitioner Cardiovascular Disease 09/09/21 Rich Barrett MD [address] [facility], [facility] 9[address] [place], [place] 313665 Physician Ophthalmology 01/21/22 Neil Kent MD 500 [place], [place] 203405 Dermatology 02/24/22 Diana Desir, [facility] [address] [place] [address] Assigned MTM Pharmacist 04/07/22 Livan Sharif MD [address] [place] [id number] Cardiovascular Disease 05/14/22 Catherine Cm MD [address] [place] [address] Cardiovascular Disease 07/21/22 Valery Vernoica, PAUcheC 909 [place] [address] Physician Primer Inserting Machine Operator Dermatology 07/21/22 Catherine Cm MD [address] [place] [address] Assigned Heart and Vascular Provider 07/24/22 11/05/22 Brea Quinn APRN CARPENTER ROUGH [address] [place] [address] 788975 Nurse Practitioner Dermatology 09/21/22 Brea Quinn APRN CARPENTER ROUGH [address] [place] [address] 055432 Assigned Surgical Provider 10/09/22 [place] [address] [place] [address] Assigned Musculoskeletal Provider 10/09/22 Livan Sharif MD [address] [place] [address] Assigned Heart and Vascular Provider 11/06/22 11/12/22 Catherine Cm MD [address] [place] [address] Assigned Heart and Vascular Provider 11/13/22 05/27/23 Sydnie Martinez RN Personal Advocate & Liaison (PAL) Family Medicine 03/28/23 07/31/23 Alfonso Renteria MD [address] [facility] [address] [place] [address] Assigned Neuroscience Provider 04/02/23 Cheng Todd PA-C [address] [place] [address] Assigned PCP 04/30/23 07/15/23 Radha Lomeli APRN CARPENTER ROUGH [address] [facility] [address] [place] [address] Assigned Heart and Vascular Provider 05/28/23 Jelena David OD [facility] [place] [address] Ophthalmology 06/15/23 Pao Joseph, VJ Personal Advocate & Liaison (PAL) Nurse 08/01/23 11/07/23 Esha Grimm PA-C [address] [place] [address]116[address] Assigned PCP 07/16/23 Valery Veronica PA-C [address] [place] [address] Physician Primer Inserting Machine Operator Dermatology 09/19/23 Rey Tay MD [address] [place] [address] Gastroenterology 09/20/23 Rocky Zepeda DO [address] [place] [address] Physician Gastroenterology 09/20/23 Philip Dumont MD 6 [place] [address] Physician Ophthalmology 09/22/23 Meredith Carrera PA-C [address] [place] [address] Assigned Gastroenterology Provider 11/01/23 Neil [place] MD [address] [place] [address] Dermatology 11/02/23 [place] [address] [address] Neurological Surgery 12/26/23 Audrey Waite PA-C [address] [place] [address] Physician Primer Inserting Machine Operator Dermatology 02/28/24 documented as of this encounter
--- OUTSIDE RECORDS SUMMARY | 2024-03-12 19:37 | XMS_ITS | Encounter Summary ---
Author Organization [facility] Address [address] [place] [address] Care Team Providers Care Head Loft Worker Name Role Phone Lita Oseguera Unavailable Unavailable Marija Edgar APRN, CNP Primary Care Provider U Marija Bella APRN, CNP Unavailable Unavail able Keisha Dotson MD Unavailable [phone] Diana Desir [facility] Unavailable [phone] Rain Galaviz PA-C Unavailable Tavia Wyatt MD Unavailable Unavailable Erica Farrell APRN GAS STATION OPERATOR Unavailable Rich Barrett MD Unavailable [phone] Neil [place] MD Unavailable Diana Desir [facility] Unavailable [phone] Livan Sharif MD Unavailable Catherine Cm MD Unavailable + Valery Veronica PA-C Unavailable [phone] Brea Quinn APRN GAS STATION OPERATOR Unavailable [phone] Brea Quinn SENIOR VALIDATION ENGINEER GAS STATION OPERATOR Unavailable Jose Francisco Johnson MD Unavailable Livan Sharif MD Unavailable Catherine Cm MD Unavailable + Sydnie Martinez RN Unavailable Unavailable Alfonso Renteria MD Unavailable [phone] Esha Grimm PA-C Primary Care Provider Cheng Todd PA-C Unavailable Radha Lomeli APRN GAS STATION OPERATOR Unavailable Jelena David OD Unavailable Pao Joseph RN Unavailable Unavailable Esha Grimm PA-C Unavailable [phone] Valery Veronica PA-C Unavailable [phone] Rey Tay MD Unavailable Rocky Zepeda DO Unavailable Philip Dumont MD Unavailable [phone] Meredith Carrera PA-C Unavailable [phone] Neil [place] MD Unavailable Juan Pablo Emmanuel MD Unavailable Audrey Waite PA-C Unavailable Encounter Details Date Type Department Care Team (Late st Contact Info) Description 11/10/2022 MyC Medical Advice [facility] [address] [place] [address] Lauren Claudio PA-C [address] [place] [address] Social History Tobacco Use Types [...] How often do you attend islam or taoism serv ices? Never 09/22/2021 Do [...] in a usp (including now)? No 09/22/2021 [place] Depression Scale Answer Date Recorded [place] Depression Score 5 01/14/2021 Last EPDS [...] [facility] Spine and Neurosurgery [address] [facility] [address] [place] [address] Ebony Cid, SENIOR VALIDATION ENGINEER GAS STATION OPERATOR 500 [facility] [address] [place], [place] 8[address]255 03/27/2024 11:00 AM CDT Office Visit [facility] [address] [facility] [address] [place] [address] Jelena David, [address] [facility] [place] [address] 04/19/2024 2:45 PM CDT Office Visit [facility] 830 [place] [phone] Audrey Waite PA-C [address] [facility] [address]385, [facility] 603 [place], [place] 872715 05/08/2024 1:30 PM CDT Office Visit [facility] [address] [place] [phone] Lauren Claudio PA-C [address] [place], [place] [phone] Esha Grimm PA-C [address] [place] [address] 06/21/2024 2:00 PM JAVA DEVELOPER ARCHITECT Office Visit [facility] Neurology Clinics - [place] [address] [facility], [address] [place] [phone] [place] [address] [place], [place] 9[address] Johnny Penn MD [address] [place] 627885 Scheduled Procedures Name Priority Associated Diagnoses Date/Ti [...] as of this encounter Care Teams Head Loft Worker Relationship Specialty Start Date End Date Marija Edgar APRN GAS STATION OPERATOR PCP - General Nurse Practitioner 04/30/20 04/14/23 Esha Grimm PAUcheC [address] [place] [address] PCP - General Family Medicine 05/04/23 Lita Oseguera Personal Advocate & Liaison (PAL) 02/28/20 03/27/23 Marija Edgar APRN GAS STATION OPERATOR Assigned PCP 06/08/20 04/29/23 Keisha Dotson MD 909 [place] [address] Assigned Neuroscience Provider 06/04/20 04/01/23 Diana Desir, [facility] 3033 [place] [address] Pharmacist Pharmacist 04/17/21 Rain Galaviz PA-C [address] [place] [address] [address] [place] [address] Physician Terra Cotta Mold Maker Dermatology 04/28/21 Tavia Wyatt MD [address] [place] [address] DR [facility] [place] [place] [address] Dermatology 07/14/21 Erica Farrell APRN GAS STATION OPERATOR [address] [place] 762445 Nurse Practitioner Cardiovascular Disease 09/09/21 Rich Barrett MD [address] [place] [address] 9[address] [place], [place] 374445 Physician Ophthalmology 01/21/22 Neil Kent MD 500 [place], [place] 323505 Dermatology 02/24/22 [facility] 3033 [place] [address] Assigned MTM Pharmacist 04/07/22 Livan Sharif MD [address] [place] 155705 Cardiovascular Disease 05/14/22 Catherine Cm MD [address] [place] 943555 Cardiovascular Disease 07/21/22 Valery Veronica PA-C 909 [place], [place] 982135 Physician Terra Cotta Mold Maker Dermatology 07/21/22 Brea Quinn APRN GAS STATION OPERATOR 500 [place], [place] 056695 Nurse Practitioner Dermatology 09/21/22 Brea Quinn APRN GAS STATION OPERATOR 6401 [place], [place] 175262 Assigned Surgical Provider 10/09/22 [place] [address] 442167 Assigned Musculoskeletal Provider 10/09/22 Livan Sharif MD [address], [facility] [address] [place] [address] Assigned Heart and Vascular Provider 11/06/22 11/12/22 Catherine Cm MD [address] [facility] [address] [place], [place] 229185 Assigned Heart and Vascular Provider 11/13/22 05/27/23 Sydnie Martinez, VJ Personal Advocate & Liaison (PAL) Family Medicine 03/28/23 07/31/23 Alfonso Renteria MD [address] [facility] 200 [place], [place] 992056 Assigned Neuroscience Provider 04/02/23 Cheng Todd PA-C [address] [place] [address] Assigned PCP 04/30/23 07/15/23 Radha Lomeli APRN GAS STATION OPERATOR [address] [facility] [address] [place], [place] 532225 Assigned Heart and Vascular Provider 05/28/23 Jelena David OD [address] [facility] [place] [address] Ophthalmology 06/15/23 Pao Joseph, VJ Personal Advocate & Liaison (PAL) Nurse 08/01/23 11/07/23 Esha Grimm PA-C [address] [place] [address] Assigned PCP 07/16/23 Valery Veronica PA-C [address] [place] [address] 138405 Physician Terra Cotta Mold Maker Dermatology 09/19/23 Rey Tay MD [address] [place] [address] 969945 Gastroenterology 09/20/23 Rocky Zepeda DO [address] [place] [address] 849315 Physician Gastroenterology 09/20/23 Philip Dumont MD [address] [place] [address] Physician Ophthalmology 09/22/23 Meredith Carrera PA-C [address] [place] [address] 70[address] Assigned Gastroenterology Provider 11/01/23 Neil Kent MD [address] [address] Dermatology 11/02/23 [place] [address] [address] Neurological Surgery 12/26/23 Audrey [place] PA-C 500 [place] [address] Physician Terra Cotta Mold Maker Dermatology 02/28/24 documented as of this encounter
--- OUTSIDE RECORDS SUMMARY | 2024-03-12 19:37 | XMS_ITS | Encounter Summary ---
Author Organization [facility] Address [address] [place] [address] Care Team Providers Care Examining Chair Assembler Name Role Phone Lita Oseguera Unavailable Unavailable Marija Edgar APRN SALVAGE WINDER AND INSPECTOR Primary Care Provider U Marija Bella APRN SALVAGE WINDER AND INSPECTOR Unavailable Unavail able Keisha Dotson MD Unavailable [phone] Diana Desir [facility] Unavailable [phone] Rain Galaviz PA-C Unavailable [phone] Tavia Wyatt MD Unavailable Unavailable Erica Farrell APRN SALVAGE WINDER AND INSPECTOR Unavailable Rich Barrett MD Unavailable [phone] Neil [place] MD Unavailable Diana Desir [facility] Unavailable [phone] Livan Sharif MD Unavailable Catherine Cm MD Unavailable + Valery Veronica PA-C Unavailable [phone] Catherine Cm MD Unavailable + Brea Quinn APRN SALVAGE WINDER AND INSPECTOR Unavailable [phone] Brea Quinn APRN SALVAGE WINDER AND INSPECTOR Unavailable [phone] Jose Francisco Johnson MD Unavailable Livan Sharif MD Unavailable Catherine Cm MD Unavailable + Sydnie Martinez RN Unavailable Unavailable Alfonso Renteria MD Unavailable [phone] Esha GrimmC Primary Care Provider Cheng Todd PA-C Unavailable Armani Radha Stovall APRN SALVAGE WINDER AND INSPECTOR Unavailable Jelena David OD Unavailable [phone] Pao Joseph RN Unavailable Unavailable Esha Grimm PA-C Unavailable [phone] Valery Veronica PA-C Unavailable Rey Tay [...] (Late st Contact Info) Description 10/12/[address] [facility] [address] [place] [address] Lauren Claudio PA-C [address] [place] [address] Prior Auth - Medication (Lidocaine [...] often do you attend jehovah's witness or amish serv ices? Never 09/22/2021 Do you belong [...] Answer Date Recorded PHQ-2 Score 1 10/11/2022 [facility] [...] in a usp (including now)? No 09/22/2021 [place] Depression Scale Answer Date Recorded [place] Depression Score 5 01/14/2021 Last EPDS Self [...] [facility] Spine and Neurosurgery [address] [facility] [address] [place] [address] Ebony Cid, [facility] 500 [place] [address] 03/27/2024 11:00 AM CDT Office Visit [address] [place] [phone] Jelena David, [place] [address] [facility] [place] [address] 04/19/2024 2:45 PM CDT Office Visit [facility] 830 [place] [phone] Audrey Waite PA-C 420 [facility] [address]385, [facility] 603 [place], [place] 898775 05/08/2024 1:30 PM CDT Office Visit [facility] [address] [place] [phone] Lauren Claudio PA-C [address] [place], [place] [phone] Esha Grimm PA-C [address] [place] [address] 06/21/2024 2:00 PM ENTERTAINER OR VARIETY ARTIST Office Visit [facility] Neurology Clinics - [address], [address] [place] [address] [place] [address] [place] [address] Johnny Penn MD 6545 [facility] [place] [id number] Scheduled Procedures Name Priority Associated Diagnoses Date/Ti [...] documented as of this encounter Care Teams Examining Chair Assembler Relationship Specialty Start Date End Date Marija Edgar APRN SALVAGE WINDER AND INSPECTOR PCP - General Nurse Practitioner 04/30/20 04/14/23 Esha Grimm PA-C [address] [place] [address] PCP - General Family Medicine 05/04/23 Lita Oseguera Personal Advocate & Liaison (PAL) 02/28/20 03/27/23 Marija Edgar APRN SALVAGE WINDER AND INSPECTOR Assigned PCP 06/08/20 04/29/23 Keisha Dotson MD 9 [place], [place] 118725 Assigned Neuroscience Provider 06/04/20 04/01/23 Diana Desir, [facility] 3033 [facility] [place] [address] Pharmacist Pharmacist 04/17/21 Rain Galaviz PA-C [address] [place] [address] [place] [address] Physician Grader Meat Dermatology 04/28/21 Tavia Wyatt MD [address] [place] [address] [place] [address] Dermatology 07/14/21 Erica Farrell APRN SALVAGE WINDER AND INSPECTOR [address] [place] 6[address]65 Nurse Practitioner Cardiovascular Disease 09/09/21 Rich Barrett MD 516 [facility], [address] [address] Physician Ophthalmology 01/21/22 Neil Kent MD 500 [place], [place] 561485 Dermatology 02/24/22 Diana Desir, [facility] 3033 [place], [place] 707316 Assigned MTM Pharmacist 04/07/22 Livan Sharif MD [address] [place] 8[address]95 Cardiovascular Disease 05/14/22 Catherine Cm MD [address] [place] 357125 Cardiovascular Disease 07/21/22 Valery Veronica PAUcheC 909 [place], [place] 523245 Physician Grader Meat Dermatology 07/21/22 Catherine Cm MD [address] [place] [address] Assigned Heart and Vascular Provider 07/24/22 11/05/22 Brea Quinn APRN SALVAGE WINDER AND INSPECTOR 500 [place] [address] Nurse Practitioner Dermatology 09/21/22 Brea Quinn APRN SALVAGE WINDER AND INSPECTOR [address] [facility] [place] [address] Assigned Surgical Provider 10/09/22 [place] [address] [facility] 300 [place], [place] 296497 Assigned Musculoskeletal Provider 10/09/22 Livan Sharif MD [address], [facility] [address] [place] 664045 Assigned Heart and Vascular Provider 11/06/22 11/12/22 Catherine Cm MD [address] [facility] [address] [place] [address] Assigned Heart and Vascular Provider 11/13/22 05/27/23 Sydnie Martinez RN Personal Advocate & Liaison (PAL) Family Medicine 03/28/23 07/31/23 Alfonso Renteria MD 5775 [facility] 200 [place] [address] Assigned Neuroscience Provider 04/02/23 Cheng Todd PA-C [address] [place] [address] Assigned PCP 04/30/23 07/15/23 Radha Lomeli APRN SALVAGE WINDER AND INSPECTOR [address] [place] [address] Assigned Heart and Vascular Provider 05/28/23 Jelena David OD [address] [facility] [place] [address] MD Ophthalmology 06/15/23 Pao Joseph, VJ Personal Advocate & Liaison (PAL) Nurse 08/01/23 11/07/23 Esha Grimm PA-C [address] [place] [phone] Assigned PCP 07/16/23 Valery Veronica PA-C [address] [place] [address] 258035 Physician Grader Meat Dermatology 09/19/23 Rey Tay MD [address] [place] [address] 566955 Gastroenterology 09/20/23 Rocky Zepeda DO [address] [place] [address] 305285 Physician Gastroenterology 09/20/23 Philip Dumont MD [address] [place] [address] Physician Ophthalmology 09/22/23 Meredith Carrera PA-C [address] [place] [address] Assigned Gastroenterology Provider 11/01/23 Neil Kent MD [address] [place] [address] Dermatology 11/02/23 [place] [address] [address] Neurological Surgery 12/26/23 Audrey Waite, PAUcheC 500 [place] [address] Physician Grader Meat Dermatology 02/28/24 documented as of this encounter
--- OUTSIDE RECORDS SUMMARY | 2024-03-12 19:38 | XMS_ITS | Encounter Summary ---
Author Organization [facility] Address [address] [place] [address] Care Team Providers Care Traffic Worker Name Role Phone Lita Oseguera Unavailable Unavailable Marija Edgar APRN SERVICE SHOP FOREMAN Primary Care Provider U Marija Bella APRN SERVICE SHOP FOREMAN Unavailable Unavail able Keisha Dotson MD Unavailable [phone] Diana Desir [facility] Unavailable Rain Galaviz PA-C Unavailable Tavia Wyatt MD Unavailable Unavailable Erica Farrell APRN SERVICE SHOP FOREMAN Unavailable Rich Barrett MD Unavailable [phone] Neil Kent MD Unavailable Roney Story DPM Unavailable [phone] Diana Desir [facility] Unavailable [phone] Jelena David OD Unavailable Galo Burrell MD Unavailable Unavailable Livan Sharif MD Unavailable Livan Sharif MD Unavailable Catherine Cm MD Unavailable + Valery Veronica PA-C Unavailable [phone] Catherine Cm MD Unavailable + Johnny Murillo MD Unavailable [phone] Brea Quinn PROPERTY TECHNICIAN SERVICE SHOP FOREMAN Unavailable [phone] Brea Quinn PROPERTY TECHNICIAN SERVICE SHOP FOREMAN Unavailable [phone] Jose Francisco Johnson MD Unavailable Livan Sharif MD Unavailable Catherine Cm MD Unavailable + Sydnie Martinez RN Unavailable Unavailable Alfonso Renteria MD Unavailable Esha Grimm PA-C Primary Care Provider Cheng Todd PA-C Unavailable [phone] Radha Lomeli PROPERTY TECHNICIAN SERVICE SHOP FOREMAN Unavailable [phone] Jelena David OD Unavailable Pao Joseph RN Unavailable Unavailable Esah Grimm PA-C Unavailable [phone] Valery Veronica PA-C Unavailable [phone] Rey Tay MD Unavailable Rocky Zepeda DO Unavailable Philip Dumont MD Unavailable [phone] Meredith Carrera PA-C Unavailable [phone] Neil Kent MD Unavailable Juan Pablo Emmanuel MD Unavailable Audrey Waite PA-C Unavailable [phone] Encounter Details Date Type Department Care Team (Late st Contact Info) Description 05/11/2022 [facility] [address] [address] Diana Desir, [facility] [address] [place] [address] Social History Tobacco Use Types Packs/Day Years [...] How often do you attend temple or temple serv ices? Never 09/22/2021 Do [...] points; Administer PHQ-9 if positive 1 05/13/2022 [facility] - Occupational Stress Questionnaire [...] in a halfway (including now)? No 09/22/2021 [place] Depression Scale Answer Date Recorded [place] Depression Score 5 01/14/2021 Last EPDS Self [...] Description 03/26/2024 11:20 AM CDT Office Visit [facility] Spine and Neurosurgery [address] [facility] [address] [place] [address] Ebony Cid, PROPERTY TECHNICIAN SERVICE SHOP FOREMAN [address] [place], [place] [address] 03/27/2024 11:00 AM CDT Office Visit [facility] [address] [facility] [address] [place] [address] Jelena David, [address] [place] [address] 04/19/2024 2:45 PM CDT Office Visit [facility] [address] [place] [address] Audrey Waite PA-C [address] [facility] B385, [facility] 6[address] [place], [place] [address]39[address] 05/08/2024 1:30 PM CDT Office Visit [facility] [address] [place] [phone] Lauren Claudio PA-C [address] [place], [place] [phone] Esha Grimm PA-C [address] [facility] [place] [address] 06/21/2024 2:00 PM NUCLEAR MEDICINE TECHNICIAN Office Visit [facility] Neurology [facility] [address] [facility], [address] [place] [address] [place] [address] [place] [address] Johnny Penn MD [address] [place] [address] Scheduled Procedures Name Priority Associated Diagnoses Date/Ti mn ESOPHAGOGASTRODUODENOSCOPY Eosinophilic esophagitis Esophageal dysphagia documented as of this encounter Visit Diagnoses Not on filedocumented in this encounter Additional Health Concerns Infection Onset Date Last Indicated Resolved Time Rule Out COVID-19 05/17/2022 05/17/2022 05/17/2022 10:20 PM NUCLEAR MEDICINE TECHNICIAN Rule Out COVID-19 06/09/2022 06/09/2022 06/09/2022 9:35 AM NUCLEAR MEDICINE TECHNICIAN COVID-19 06/09/2022 06/09/2022 06/30/2022 11:4 1 PM NUCLEAR MEDICINE TECHNICIAN Rule Out COVID-19 11/10/2022 11/10/2022 11/11/2022 12:17 PM CDT Rule Out COVID-19 03/07/2023 03/07/2023 03/07/2023 1:20 PM CDT Rule Out COVID-19 12/26/2023 12/26/2023 12/26/2023 9:50 AM CDT Assessment Noted Time PHQ-9 Depression Total Score: 3 05/13/20 8:49 PM CDT documented as of this encounter Care Teams Traffic Worker Relationship Specialty Start Date End Date Marija Edgar APRN SERVICE SHOP FOREMAN PCP - General Nurse Practitioner 04/30/20 04/14/23 Esha Grimm PA-C [address] [place] [address] PCP - General Family Medicine 05/04/23 Lita Oseguera Personal Advocate & Liaison (PAL) 02/28/20 03/27/23 Marija Edgar APRN SERVICE SHOP FOREMAN Assigned PCP 06/08/20 04/29/23 Keisha Dotson MD [address] [place], [place] 7[address] Assigned Neuroscience Provider 06/04/20 04/01/23 Diana Desir, [facility] [address] [place], [place] 4436[address] Pharmacist Pharmacist 04/17/21 Rain Galaviz PA-C [address] [place] [address] [address] [place] [address] Physician Medical Review Coordinator Dermatology 04/28/21 Tavia Wyatt MD [address] [place] [address] [address] [place] [address] Dermatology 07/14/21 Erica Farrell APRN SERVICE SHOP FOREMAN [address] [place] [address] Nurse Practitioner Cardiovascular Disease 09/09/21 Rich Barrett MD [address] 133935 Physician Ophthalmology 01/21/22 Neil Kent MD [address] [place] [address] Dermatology 02/24/22 Roney Story DPM [address] [facility] [address] [place] [address] Assigned Musculoskeletal Provider 03/20/22 08/13/22 Diana Desir, [facility] [address] [place] [address] Assigned MTM Pharmacist 04/07/22 Jelena David OD [address] [place] [address] Assigned Surgical Provider 05/08/22 10/08/22 Galo Burrell MD Assigned Heart and Vascular Provider 04/17/22 06/11/22 Livan Sharif MD [address] [place] [address] Cardiovascular Disease 05/14/22 Livan Sharif MD [address] [place] [address] Assigned Heart and Vascular Provider 06/12/22 07/23/22 Catherine Cm MD [address] [place] 9[address] Cardiovascular Disease 07/21/22 Valery Veronica, PAUcheC 909 [place] [address] Physician Medical Review Coordinator Dermatology 07/21/22 Catherine Cm MD [address] [place] [address] [place] [address] Assigned Heart and Vascular Provider 07/24/22 11/05/22 Johnny Murillo MD [address] [place] [address] 377124 Assigned Musculoskeletal Provider 08/14/22 10/08/22 Brea Quinn APRN SERVICE SHOP FOREMAN [address] [place] [address] 822675 Nurse Practitioner Dermatology 09/21/22 Brea Quinn APRN SERVICE SHOP FOREMAN [address] [place] [address] 402542 Assigned Surgical Provider 10/09/22 [place] [address] [address] Assigned Musculoskeletal Provider 10/09/22 Livan Sharif MD [address] [place] [address] [place] [address] Assigned Heart and Vascular Provider 11/06/22 11/12/22 Catherine Cm MD [address] [place] [address] [place] [address]01[address] Assigned Heart and Vascular Provider 11/13/22 05/27/23 Sydnie Martinez RN Personal Advocate & Liaison (PAL) Family Medicine 03/28/23 07/31/23 Alfonso Renteria MD [address] [facility] [address] [place] [address] Assigned Neuroscience Provider 04/02/23 Cheng Todd PA-C [address] [place] [address] Assigned PCP 04/30/23 07/15/23 Radha Lomeli APRN SERVICE SHOP FOREMAN [address] [facility] [address] [place] [address] Assigned Heart and Vascular Provider 05/28/23 Jelena David OD [address] [place] [address] Ophthalmology 06/15/23 Pao Joseph, VJ Personal Advocate & Liaison (PAL) Nurse 08/01/23 11/07/23 Esha Grimm PA-C [address] [place] [address] Assigned PCP 07/16/23 Valery Veronica PA-C [address] [place] [address] Physician Medical Review Coordinator Dermatology 09/19/23 Rey Tay MD [address] [place] [address] 135825 Gastroenterology 09/20/23 Rocky Zepeda DO [address] [place] [address] 478715 Physician Gastroenterology 09/20/23 Philip Dumont MD [address] [place] [address] Physician Ophthalmology 09/22/23 Meredith Carrera PA-C [address] [place] [address] 146405 Assigned Gastroenterology Provider 11/01/23 Neil Kent MD [address] 761040 MD Dermatology 11/02/23 [place] [address] [place], [place] 5089[address] Neurological Surgery 12/26/23 Audrey Waite PA-C [address] [place], [place] 65[address] Physician Medical Review Coordinator Dermatology 02/28/24 documented as of this encounter
--- OUTSIDE RECORDS SUMMARY | 2024-03-12 19:38 | XMS_ITS | Encounter Summary ---
Author Organization [place] Address [address] [place] [address] Care Team Providers Care Savings Teller Name Role Phone Lita Oseguera Unavailable Unavailable Marija Edgar APRN MANAGER FINANCIAL PLANNING Primary Care Provider U Marija Bella APRN MANAGER FINANCIAL PLANNING Unavailable Unavail able Keisha Dotson MD Unavailable [phone] Diana Desir [facility] Unavailable Rain Galaviz-C Unavailable Tavia Wyatt MD Unavailable Unavailable Erica Farrell APRN MANAGER FINANCIAL PLANNING Unavailable Rich Barrett MD Unavailable [phone] Neil Kent MD Unavailable Roney Story DPM Unavailable [phone] Diana Desir [facility] Unavailable [phone] Jelena David OD Unavailable Livan Sharif MD Unavailable Livan Sharif MD Unavailable Catherine Cm MD Unavailable + Valery Veronica PA-C Unavailable [phone] Catherine Cm MD Unavailable + Johnny Murillo MD Unavailable [phone] Brea Quinn LACQUER SPRAY BOOTH OPERATOR MANAGER FINANCIAL PLANNING Unavailable [phone] Brea Quinn LACQUER SPRAY BOOTH OPERATOR MANAGER FINANCIAL PLANNING Unavailable [phone] Jose Francisco Johnson MD Unavailable Livan Sharif MD Unavailable Catherine Cm MD Unavailable + Sydnie Martinez RN Unavailable Unavailable Alfonso Renteria MD Unavailable Esha Grimm PA-C Primary Care Provider Cheng Todd PA-C Unavailable Radha Lomeli LACQUER SPRAY BOOTH OPERATOR MANAGER FINANCIAL PLANNING Unavailable [phone] Jelena David OD Unavailable Pao Joseph RN Unavailable Unavailable Esha Grimm PA-C Unavailable [phone] Valery Veronica PA-C Unavailable Rey Tay MD Unavailable Rocky Zepeda DO Unavailable Philip Dumont MD Unavailable [phone] Meredith Carrera PA-C Unavailable [phone] Neil Kent MD Unavailable Juan Pablo Emmanuel MD Unavailable Audrey Waite PA-C Unavailable [phone] Encounter Details Date Type Department Care Team (Late st Contact Info) Description 07/02/[address] [address] Diana Desir, [facility] [address] [place] [address] Social History Tobacco Use Types Packs/Day Years [...] How often do you attend moravian or orthodoxy serv ices? Never 09/22/2021 Do [...] points; Administer PHQ-9 if positive 1 05/13/2022 [facility] [...] in a fdc (including now)? No 09/22/2021 [place] Depression Scale Answer Date Recorded [place] Depression Score 5 01/14/2021 Last EPDS Self [...] Coronavirus/COVID-19? No / Unsure 06/25/2022 8:44 AM PUBLIC RELATIONS SUPERVISOR documented as of this encounter Plan of Treatment Upcoming Encounters Date Type Department Care Team (Late st Contact Info) Description 03/26/2024 11:20 AM CDT Office Visit [facility] Spine and Neurosurgery [address] [facility] [address] [place] [phone] Ebony Cid, LACQUER SPRAY BOOTH OPERATOR MANAGER FINANCIAL PLANNING [address] [place], [place] [address] 03/27/2024 11:00 AM CDT Office Visit [facility] [address] [facility] [address] [place] [address] Jelena David, [address] [facility] [place] [address] 04/19/2024 2:45 PM CDT Office Visit [facility] 830 [place] [address] Audrey Waite PA-C [address] [facility] [address]385, [facility] 603 [place], [place] [address] 05/08/2024 1:30 PM CDT Office Visit [facility] [address] [place] [phone] Lauren Claudio PA-C [address] [place] [address] Esha Grimm PA-C [address] [place] [address] 06/21/2024 2:00 PM PUBLIC RELATIONS SUPERVISOR Office Visit [facility] Neurology Clinics [facility] [address] [facility], [address] [place] [address] [place] [address] [place] [address] Johnny Penn MD [address] [facility] [address] Scheduled Procedures Name Priority Associated Diagnoses Date/Ti ak ESOPHAGOGASTRODUODENOSCOPY Eosinophilic esophagitis Esophageal dysphagia documented as [...] documented as of this encounter Care Teams Savings Teller Relationship Specialty Start Date End Date Marija Edgar APRN MANAGER FINANCIAL PLANNING PCP - General Nurse Practitioner 04/30/20 04/14/23 Esha Grimm PA-C [address] [place] [phone] PCP - General Family Medicine 05/04/23 Lita Oseguera Personal Advocate & Liaison (PAL) 02/28/20 03/27/23 Marija Edgar APRN MANAGER FINANCIAL PLANNING Assigned PCP 06/08/20 04/29/23 Keisha Dotson MD [address] [place] [address] Assigned Neuroscience Provider 06/04/20 04/01/23 Diana Desir, [facility] [address] [place] [address] Pharmacist Pharmacist 04/17/21 Rain Galaviz PA-C [address] [place] [address] [address] [place] [address] Physician Stenographer Secretary Dermatology 04/28/21 Tavia Wyatt MD [address] [place] [address] [address] [place] [address] Dermatology 07/14/21 Erica Farrell APRN MANAGER FINANCIAL PLANNING [address] [place] [address] Nurse Practitioner Cardiovascular Disease 09/09/21 Rich Barrett MD [address] 400[address] Physician Ophthalmology 01/21/22 Neil Kent MD 500 [place], [place] [address] Dermatology 02/24/22 Roney Story DPM [address] [facility] [address] [place] [address] Assigned Musculoskeletal Provider 03/20/22 08/13/22 Diana Desir, [facility] [address] [place], [place] [address] Assigned MTM Pharmacist 04/07/22 Jelena David OD [address] [facility] [address] Assigned Surgical Provider 05/08/22 10/08/22 Livan Sharif MD [address] [place] [address] Cardiovascular Disease 05/14/22 Livan Sharif MD [address] [place] [address] Assigned Heart and Vascular Provider 06/12/22 07/23/22 Catherine Cm MD [address] [facility] [address] [place] [address] Cardiovascular Disease 07/21/22 Valery Veronica, PA-C [address] [place], [place] [address] Physician Stenographer Secretary Dermatology 07/21/22 Catherine Cm MD [address] [place] [address] Assigned Heart and Vascular Provider 07/24/22 11/05/22 Johnny Murillo MD [facility] [address] [facility] [address] [place] [address]1744 Assigned Musculoskeletal Provider 08/14/22 10/08/22 Brea Quinn APRN MANAGER FINANCIAL PLANNING [address] [place] [address] Nurse Practitioner Dermatology 09/21/22 Brea Quinn APRN MANAGER FINANCIAL PLANNING [address] [place] [address] Assigned Surgical Provider 10/09/22 [place] [address] [place] [facility] 300 [place] [address] Assigned Musculoskeletal Provider 10/09/22 Livan Sharif MD [address] [facility] [address] [place] [address] Assigned Heart and Vascular Provider 11/06/22 11/12/22 Catherine Cm MD [address] [facility] [address] [place] [address] Assigned Heart and Vascular Provider 11/13/22 05/27/23 Sydnie Martinez RN Personal Advocate & Liaison (PAL) Family Medicine 03/28/23 07/31/23 Alfonso Renteria MD [address] [facility] 200 [place], [place] 1744[address] Assigned Neuroscience Provider 04/02/23 Cheng Todd PA-C [address] [place] [address] Assigned PCP 04/30/23 07/15/23 Radha Lomeli APRN MANAGER FINANCIAL PLANNING [address] [facility] [address] [place] [address] Assigned Heart and Vascular Provider 05/28/23 Jelena David OD [address] [facility] [address] MD Ophthalmology 06/15/23 Pao Joseph, VJ Personal Advocate & Liaison (PAL) Nurse 08/01/23 11/07/23 Esha Grimm PA-C [address] [place] [phone] Assigned PCP 07/16/23 Valery Veronica PA-C [address] [place] [address] 984505 Physician Stenographer Secretary Dermatology 09/19/23 Rey Tay MD [address] [place] [address] 405625 Gastroenterology 09/20/23 Rocky Zepeda DO [address] [place] [address] 567885 Physician Gastroenterology 09/20/23 Philip Dumont MD [address] [place] [address] 039545 Physician Ophthalmology 09/22/23 Meredith Carrera PA-C [address] [place] [address] 524325 Assigned Gastroenterology Provider 11/01/23 Neil Kent MD [address] [address] Dermatology 11/02/23 [place] [address] [place], [place] [address] Neurological Surgery 12/26/23 Audrey Waite PA-C 500 [place], [place] 49[address] Physician Stenographer Secretary Dermatology 02/28/24 documented as of this encounter
--- OUTSIDE RECORDS SUMMARY | 2024-03-12 19:38 | XMS_ITS | Encounter Summary ---
Author Organization [facility] Address [address] [place] [address] Care Team Providers Care Energy Advisor Name Role Phone Lita Oseguera Unavailable Unavailable Marija Edgar APRN PARACHUTE REPAIRER Primary Care Provider U Marija Bella APRN PARACHUTE REPAIRER Unavailable Unavail able Keisha Dotson MD Unavailable [phone] Diana Desir [facility] Unavailable [phone] Rain Galaviz-C Unavailable Tavia Wyatt MD Unavailable Unavailable Erica Farrell APRN PARACHUTE REPAIRER Unavailable Rich Barrett MD Unavailable [phone] Neil Kent MD Unavailable Roney Story DPM Unavailable [phone] Diana Desir [facility] Unavailable [phone] Jelena David OD Unavailable Livan Sharif MD Unavailable Livan Sharif MD Unavailable Catherine Cm MD Unavailable + Valery Veronica PA-C Unavailable [phone] Catherine Cm MD Unavailable + Johnny Murillo MD Unavailable [phone] Brea Quinn PLANT CUSTODIAN PARACHUTE REPAIRER Unavailable [phone] Brea Quinn PLANT CUSTODIAN PARACHUTE REPAIRER Unavailable [phone] Jose Francisco Johnson MD Unavailable Livan Sharif MD Unavailable Catherine Cm MD Unavailable + Sydnie Martinez RN Unavailable Unavailable Alfonso Renteria MD Unavailable Esha Grimm PA-C Primary Care Provider Cheng Todd PA-C Unavailable Radha Lomeli PLANT CUSTODIAN PARACHUTE REPAIRER Unavailable [phone] Jelena David OD Unavailable Pao Joseph RN Unavailable Unavailable Esha Grimm PA-C Unavailable [phone] Valery Veronica PA-C Unavailable Rey Tay MD Unavailable Rocky Zepeda DO Unavailable Philip Dumont MD Unavailable [phone] Meredith Carrera PA-C Unavailable [phone] Neil Kent MD Unavailable Juan Pablo Emmanuel MD Unavailable Audrey Waite PA-C Unavailable [phone] Encounter Details Date Type Department Care Team (Late st Contact Info) Description 07/07/2022 [facility] Heart [address] [address] Livan Sharif MD [address] [place] [address] Social History Tobacco Use Types Packs/Day Years [...] How often do you attend sabianism or yazdanism serv ices? Never 09/22/2021 Do [...] points; Administer PHQ-9 if positive 1 05/13/2022 [facility] of Occupat ional [facility] - Occupational [...] a long term (including now)? No 09/22/2021 [place] Depression Scale Answer Date Recorded Bonita Depression Score 5 01/14/2021 Last EPDS Self [...] Coronavirus/COVID-19? No / Unsure 06/25/2022 8:44 AM CANCELING AND CUTTING CONTROL CLERK documented as of this encounter Plan of Treatment Upcoming Encounters Date Type Department Care Team (Late st Contact Info) Description 03/26/2024 11:20 AM CDT Office Visit [facility] Spine and Neurosurgery [address] [facility] [address] [place] [address] Ebony Cid, PLANT CUSTODIAN PARACHUTE REPAIRER 500 [place], [place] [address] 03/27/2024 11:00 AM CDT Office Visit [facility] [address] [facility] [address] [place] [address] Jelena David, [address] [facility] [place] [address] 04/19/2024 2:45 PM CDT Office Visit [facility] 830 [place] [phone] Audrey Waite PA-C [address] [facility] [address], [facility] 603 [place], [place] [address] 05/08/2024 1:30 PM CDT Office Visit [facility] [address] [place] [address] Lauren Claudio PA-C [address] [place] [address] Esha Grimm PA-C [address] [place] [address] 06/21/2024 2:00 PM CANCELING AND CUTTING CONTROL CLERK Office Visit [facility] Neurology Clinics [facility] [address] [facility], [address] [place] [address] [place] [address] [place] [address] Johnny Penn MD [address] [facility] [address] Scheduled Procedures Name Priority Associated [...] as of this encounter Care Teams Energy Advisor Relationship Specialty Start Date End Date Marija Edgar APRN PARACHUTE REPAIRER PCP - General Nurse Practitioner 04/30/20 04/14/23 Esha Grimm PA-C [address] [place] [address] PCP - General Family Medicine 05/04/23 Lita Oseguera Personal Advocate & Liaison (PAL) 02/28/20 03/27/23 Marija Edgar APRN PARACHUTE REPAIRER Assigned PCP 06/08/20 04/29/23 Keisha Dotson MD 909 [place] [address] Assigned Neuroscience Provider 06/04/20 04/01/23 [facility] [address] [place] [address] Pharmacist Pharmacist 04/17/21 Rain Galaviz PA-C [address] [place] [address] [address] [place] [address] Physician Java Golden Gate Developer Dermatology 04/28/21 Tavia Wyatt MD [address] [place] [address] [address] [place] [address] Dermatology 07/14/21 Erica Farrell APRN PARACHUTE REPAIRER [address] [place] [address] Nurse Practitioner Cardiovascular Disease 09/09/21 Rich Barrett MD [address] [address] Physician Ophthalmology 01/21/22 Neil Kent MD 500 [place], [place] 6[address] Dermatology 02/24/22 Roney Story DPM [address] [facility] 300 [place] [address] Assigned Musculoskeletal Provider 03/20/22 08/13/22 Diana Desir, [facility] [address] [facility] [place], [place] [address] Assigned MTM Pharmacist 04/07/22 Jelena David OD [address] [facility] [place] [address] Assigned Surgical Provider 05/08/22 10/08/22 Livan Sharif MD [address], [facility]00 [place] [address] Cardiovascular Disease 05/14/22 Livan Sharif MD [address], [facility] [address] [place] [address] Assigned Heart and Vascular Provider 06/12/22 07/23/22 Catherine Cm MD [address] [facility]00 [place] [address] Cardiovascular Disease 07/21/22 Valery Veronica, PAUcheC [address] [place] [address] Physician Java Golden Gate Developer Dermatology 07/21/22 Catherine Cm MD [address] [facility]00 [place] [address] Assigned Heart and Vascular Provider 07/24/22 11/05/22 Johnny Murillo MD [facility] [address] [address] Assigned Musculoskeletal Provider 08/14/22 10/08/22 Brea Quinn APRN PARACHUTE REPAIRER 500 [place] [address] Nurse Practitioner Dermatology 09/21/22 Brea Quinn APRN PARACHUTE REPAIRER 6401 [place] [address] Assigned Surgical Provider 10/09/22 [place] [address] [facility] 300 [place] [address] Assigned Musculoskeletal Provider 10/09/22 Livan Sharif MD [address], [facility] [address] [place] [address] Assigned Heart and Vascular Provider 11/06/22 11/12/22 Catherine Cm MD [address] [facility] [address] [place] [address] Assigned Heart and Vascular Provider 11/13/22 05/27/23 Sydnie Martinez RN Personal Advocate & Liaison (PAL) Family Medicine 03/28/23 07/31/23 Alfonso Renteria MD [address] [facility] 200 [place], [place] 684896 Assigned Neuroscience Provider 04/02/23 Cheng Todd PA-C [address] [place] [address] Assigned PCP 04/30/23 07/15/23 Radha Lomeli APRN PARACHUTE REPAIRER [address] [facility] [address] [place] [address] Assigned Heart and Vascular Provider 05/28/23 Jelena David OD [address] [facility] [place] [address] MD Ophthalmology 06/15/23 Pao Joseph, VJ Personal Advocate & Liaison (PAL) Nurse 08/01/23 11/07/23 Esha Grimm PA-C [address] [place] [phone] Assigned PCP 07/16/23 Valery Veronica PA-C [address] [place] [address] Physician Java Golden Gate Developer Dermatology 09/19/23 Rey Tay MD [address] [place] [address]285 Gastroenterology 09/20/23 Rocky Zepeda DO [address] [place] [address] 784495 Physician Gastroenterology 09/20/23 Philip Dumont MD [address] [place] [address] 3738[address] Physician Ophthalmology 09/22/23 Meredith Carrera PA-C [address] [place] [address] 578965 Assigned Gastroenterology Provider 11/01/23 Neil Kent MD [address] [address] Dermatology 11/02/23 [place] [address] [place] [address]457 Neurological Surgery 12/26/23 Audrey Waite PA-C 500 [place], [place] [address] Physician Java Golden Gate Developer Dermatology 02/28/24 documented as of this encounter
--- OUTSIDE RECORDS SUMMARY | 2024-03-12 19:38 | XMS_ITS | Encounter Summary ---
Author Organization [facility] Address [address] [place] [address] Care Team Providers Care Grey Iron Molder Name Role Phone Lita Oseguera Unavailable Unavailable Marija Edgar APRN HULLER OPERATOR Primary Care Provider U Marija Bella APRN HULLER OPERATOR Unavailable Unavail able Keisha Dotson MD Unavailable [phone] Diana Desir [facility] Unavailable Rain Galaviz PA-C Unavailable [phone] Tavia Wyatt MD Unavailable Unavailable Erica Farrell APRN HULLER OPERATOR Unavailable Rich Barrett MD Unavailable [phone] Neil Kent MD Unavailable Diana Desir [facility] Unavailable [phone] Jelena David OD Unavailable Livan Sharif MD Unavailable Catherine Cm MD Unavailable + Valery Veronica PA-C Unavailable [phone] Catherine Cm MD Unavailable + Johnny Murillo MD Unavailable Brea Quinn EMPLOYMENT SPECIALIST/PROGRAM MANAGER HULLER OPERATOR Unavailable [phone] Brea Quinn EMPLOYMENT SPECIALIST/PROGRAM MANAGER HULLER OPERATOR Unavailable Jose Francisco Johnson MD Unavailable Livan Sharif MD Unavailable Catherine Cm MD Unavailable + Sydnie Martinez RN Unavailable Unavailable Alfonso Renteria MD Unavailable [phone] Esha Grimm PA-C Primary Care Provider Cheng Todd PA-C Unavailable Radha Lomeli EMPLOYMENT SPECIALIST/PROGRAM MANAGER HULLER OPERATOR Unavailable Jelena David Radha OD Unavailable Pao Joseph RN Unavailable Unavailable Esha Grimm PA-C Unavailable [phone] Valery Veronica PA-C Unavailable [phone] Rey Tay MD Unavailable Rocky Zepeda DO Unavailable Philip Dumont MD Unavailable Meredith Carrera PA-C Unavailable Neil Kent MD Unavailable Juan Pablo Emmanuel MD Unavailable [phone] Audrey Waite PA-C Unavailable Reason for Visit * Reason Onset Date Comments Call Back 09/21/2022 Change of provid er request Encounter Details Date Type Department Care Team (Late st Contact Info) Description 09/21/2022 Telephone M Earl TUBBS Epilepsy [facility] [address], [address] [place] [address] Keisha Dotson MD [address] [place] [address] Call Back (Change of provider request) [...] How often do you attend hoahaoism or nondenominational serv ices? Never 09/22/2021 Do [...] Answer Date Recorded PHQ-2 Score 2 08/27/2022 [facility] of Occupat ional [facility] - Occupational Stress Questionnaire Answer [...] in a prison (including now)? No 09/22/2021 [place] Depression Scale Answer Date Recorded [place] Depression Score 5 01/14/2021 Last EPDS Self [...] Aleyda Guan - 09/21/2022 10:47 AM CDT [facility] Phone Message May a detailed message be left on voicemail: yes Reason for Call: Other: Change of provider request, Pt would like to be seen with another provider. Please call Pt back at [phone] to scheduled or advise. Action Taken: Message routed to: [facility] Neurology Travel Screening: Not Applicable documented in this encounter Plan of Treatment Upcoming Encounters Date Type Department Care Team (Late st Contact Info) Description 03/26/2024 11:20 AM CDT Office Visit [facility] Spine and Neurosurgery [address] [facility] 100 [place] [address] Ebony Cid APRN HULLER OPERATOR 500 [place] [address] 03/27/2024 11:00 AM CDT Office Visit [facility] [place] [address] [facility] [address] [place] [phone] Jelena David, SONJA [address] [facility] [place] [address] 04/19/2024 2:45 PM CDT Office Visit [facility] 830 [place] [phone] WaAudrey meyer PA-C [address], [facility] 603 [place] [address] 05/08/2024 1:30 PM CDT Office Visit [facility] [address] [place] [address] Lauren Claudio PA-C [address] [place], [place] [phone] Esha Grimm PA-C [address] [place] [address] 06/21/2024 2:00 PM MOVEMAN Office Visit [facility] Neurology [facility] - [address], [address] [place] [address] [place] [address] [place] [address] [address] Johnny Penn MD 6545 [place], [place] [address] Scheduled Procedures Name Priority Associated Diagnoses Date/Ti wv ESOPHAGOGASTRODUODENOSCOPY Eosinophilic esophagitis Esophageal dysphagia documented as [...] Total Score: 5 08/27/19 23 1:14 PM MOVEMAN documented as of this encounter Care Teams Grey Iron Molder Relationship Specialty Start Date End Date Marija Edgar APRN HULLER OPERATOR PCP - General Nurse Practitioner 04/30/20 04/14/23 Esha Grimm PA-C [address] [place] [address] PCP - General Family Medicine 05/04/23 Lita Oseguera Personal Advocate & Liaison (PAL) 02/28/20 03/27/23 Marija Edgar APRN HULLER OPERATOR Assigned PCP 06/08/20 04/29/23 Keisha Dotson MD 909 [place] [address] Assigned Neuroscience Provider 06/04/20 04/01/23 [facility] 3033 [place] [address] Pharmacist Pharmacist 04/17/21 Rain Galaviz PA-C [address] [place] [address] [address] [place] [address] Physician Chauffeur Dermatology 04/28/21 Tavia Wyatt MD [address] [place] [address] [address] [place] [address] Dermatology 07/14/21 Erica Farrell APRN HULLER OPERATOR [address] [place] [address] Nurse Practitioner Cardiovascular Disease 09/09/21 Rich Barrett MD [address] 7199[address] Physician Ophthalmology 01/21/22 Neil Kent MD 500 [place] [address] Dermatology 02/24/22 Diaan Desir, [facility] [address] [place] [address] Assigned MTM Pharmacist 04/07/22 Jelena David OD [address] [facility] [place] [address] Assigned Surgical Provider 05/08/22 10/08/22 Livan Sharif MD [address], [address] [place] [address] Cardiovascular Disease 05/14/22 Catherine Cm MD [address] [facility] [place], [place] 9405[address] Cardiovascular Disease 07/21/22 Valery Veronica, PA-C 909 [place] [address] Physician Chauffeur Dermatology 07/21/22 Catherine Cm MD [address] [place] [address] Assigned Heart and Vascular Provider 07/24/22 11/05/22 Johnny Murillo MD [address] [address] Assigned Musculoskeletal Provider 08/14/22 10/08/22 Brea Quinn APRN HULLER OPERATOR 500 [place], [place] [address] Nurse Practitioner Dermatology 09/21/22 Brea Quinn APRN HULLER OPERATOR 6401 [place], [place] 771702 Assigned Surgical Provider 10/09/22 [place] [address] [facility] 300 [place], [place] 2[address] Assigned Musculoskeletal Provider 10/09/22 Livan Sharif MD [address] [facility] [address] [place], [place] 47[address] Assigned Heart and Vascular Provider 11/06/22 11/12/22 Catherine Cm MD [address] [facility] [address] [place] [address] Assigned Heart and Vascular Provider 11/13/22 05/27/23 Sydnie Martinez RN Personal Advocate & Liaison (PAL) Family Medicine 03/28/23 07/31/23 Alfonso Renteria MD 5775 [facility] 200 [place], [place] [address] Assigned Neuroscience Provider 04/02/23 Cheng Todd PA-C [address] [place] [address] Assigned PCP 04/30/23 07/15/23 Radha Lomeli APRN HULLER OPERATOR [address] [facility] [address] [place], [place] [address] Assigned Heart and Vascular Provider 05/28/23 Jelena David OD [address] [facility] [place] [address] MD Ophthalmology 06/15/23 Pao Joseph, VJ Personal Advocate & Liaison (PAL) Nurse 08/01/23 11/07/23 Esha Grimm PA-C [address] [place] [address] Assigned PCP 07/16/23 Valery Veronica PA-C [address] [place] [address] 799245 Physician Chauffeur Dermatology 09/19/23 Rey Tay MD [address] [place] [address] 510435 Gastroenterology 09/20/23 Rocky Zepeda DO [address] [place] [address] 959235 Physician Gastroenterology 09/20/23 Philip Dumont MD [address] [place] [address] 005195 Physician Ophthalmology 09/22/23 Meredith Carrera PA-C [address] [place] [address] Assigned Gastroenterology Provider 11/01/23 Neil Kent MD [address] [address] Dermatology 11/02/23 [place] [address] [place] [address] Neurological Surgery 12/26/23 Audrey Waite, PAUcheC 500 [place] [address] Physician Chauffeur Dermatology 02/28/24 documented as of this encounter
--- OUTSIDE RECORDS SUMMARY | 2024-03-12 19:38 | XMS_ITS | Encounter Summary ---
Author Organization [place] Address [address] [place] [address] Care Team Providers Care Geospatial Image Analyst Name Role Phone Lita Oseguera Unavailable Unavailable Marija Edgar APRN TESTER EQUIPMENT Primary Care Provider U Marija Bella APRN TESTER EQUIPMENT Unavailable Unavail able Keisha Dotson MD Unavailable [phone] Diana Desir [facility] Unavailable Rain Galaviz-C Unavailable Tavia Wyatt MD Unavailable Unavailable Erica Farrell APRN TESTER EQUIPMENT Unavailable Rich Barrett MD Unavailable [phone] Neil Kent MD Unavailable Roney Story DPM Unavailable [phone] Diana Desir [facility] Unavailable [phone] Jelena David OD Unavailable Livan Sharif MD Unavailable Livan Sharif MD Unavailable Catherine Cm MD Unavailable + Valery Veronica PA-C Unavailable [phone] Catherine Cm MD Unavailable + Johnny Murillo MD Unavailable [phone] Brea Quinn SUPERVISOR PAINTING TESTER EQUIPMENT Unavailable [phone] Brea Quinn SUPERVISOR PAINTING TESTER EQUIPMENT Unavailable [phone] Jose Francisco Johnson MD Unavailable Livan Sharif MD Unavailable Catherine Cm MD Unavailable + Sydnie Martinez RN Unavailable Unavailable Alfonso Renteria MD Unavailable Esha Grimm PA-C Primary Care Provider Cheng Todd PA-C Unavailable Radha Lomeli SUPERVISOR PAINTING TESTER EQUIPMENT Unavailable [phone] Jelena David OD Unavailable Pao Joseph RN Unavailable Unavailable Esha Grimm PA-C Unavailable [phone] Valery Veronica PA-C Unavailable Rey Tay MD Unavailable Rocky Zepeda DO Unavailable Philip Dumont MD Unavailable [phone] Meredith Carrera PA-C Unavailable [phone] Neil Kent MD Unavailable Juan Pablo Emmanuel MD Unavailable Audrey Waite PA-C Unavailable [phone] Encounter Details Date Type Department Care Team (Late st Contact Info) Description 07/20/2022 [facility] Heart [address] [address] Livan Sharif MD [address] [place] [address] Social History Tobacco Use Types Packs/Day Years [...] How often do you attend hoahaoism or yarsani serv ices? Never 09/22/2021 Do you belong [...] 05/13/2022 [facility] - Occupational Stress Questionnaire [...] in a fpc (including now)? No 09/22/2021 [place] Depression Scale Answer Date Recorded [place] Depression Score 5 01/14/2021 Last EPDS Self [...] Coronavirus/COVID-19? No / Unsure 07/23/2022 6:45 AM WEDDING DECORATOR documented as of this encounter Plan of Treatment Upcoming Encounters Date Type Department Care Team (Late st Contact Info) Description 03/26/2024 11:20 AM CDT Office Visit [facility] Spine and Neurosurgery [address] [facility] [address] [place] [address] Ebony Cid, SUPERVISOR PAINTING TESTER EQUIPMENT 500 [place], [place] [address] 03/27/2024 11:00 AM CDT Office Visit [facility] [address] [facility] [address] [place] [address] Jelena David, [address] [facility] [place] [address] 04/19/2024 2:45 PM CDT Office Visit [facility] 830 [place] [address] Audrey Waite PA-C [address] [facility] [address], [employer] 603 [place], [place] [address] 05/08/2024 1:30 PM CDT Office Visit [facility] [address] [place] [address] Lauren Claudio PA-C [address] [place] [address] Esha Grimm PA-C [address] [place] [address] 06/21/2024 2:00 PM WEDDING DECORATOR Office Visit [facility] Neurology Clinics [facility] [address] [facility], [address] [place] [address] [place] [address] [place] [address] Johnny Penn MD [address] [facility] [address] Scheduled Procedures Name Priority Associated [...] documented as of this encounter Care Teams Geospatial Image Analyst Relationship Specialty Start Date End Date Marija Edgar APRN TESTER EQUIPMENT PCP - General Nurse Practitioner 04/30/20 04/14/23 Esha Grimm PA-C [address] [place] [address] PCP - General Family Medicine 05/04/23 Lita Oseguera Personal Advocate & Liaison (PAL) 02/28/20 03/27/23 Marija Edgar APRN TESTER EQUIPMENT Assigned PCP 06/08/20 04/29/23 Keisha Dotson MD 909 [place] [address] Assigned Neuroscience Provider 06/04/20 04/01/23 [facility] [address] [place] [address] Pharmacist Pharmacist 04/17/21 Rain Galaviz PA-C [address] [place] [address] [address] [place] [address] Physician Content Management Consultant Dermatology 04/28/21 Tavia Wyatt MD [address] [place] [address] [address] [place] [address] Dermatology 07/14/21 Erica Farrell APRN TESTER EQUIPMENT [address] [place] [address] Nurse Practitioner Cardiovascular Disease 09/09/21 Rich Barrett MD [address] [address] Physician Ophthalmology 01/21/22 Neil Kent MD 500 [place], [place] 25[address] Dermatology 02/24/22 Roney Story DPM [address] [facility] 300 [place] [address] Assigned Musculoskeletal Provider 03/20/22 08/13/22 Diana Desir, [facility] [address] [facility] [place], [place] 37[address] Assigned MTM Pharmacist 04/07/22 [place]el[place] David OD [address] [place] [address] Assigned Surgical Provider 05/08/22 10/08/22 Livan Sharif MD [address], [facility]00 [place] [address] Cardiovascular Disease 05/14/22 Livan Sharif MD [address], [facility] [address] [place] [address] Assigned Heart and Vascular Provider 06/12/22 07/23/22 Catherine Cm MD [address] [facility]00 [place] [address] Cardiovascular Disease 07/21/22 Valery Veronica, PAUcheC [address] [place] [address] 796855 Physician Content Management Consultant Dermatology 07/21/22 Catherine Cm MD [address] [facility] [place] 87[address]05 Assigned Heart and Vascular Provider 07/24/22 11/05/22 Johnny Murillo MD [facility] 769484 Assigned Musculoskeletal Provider 08/14/22 10/08/22 Brea Quinn APRN TESTER EQUIPMENT 500 [place] [address] Nurse Practitioner Dermatology 09/21/22 Brea Quinn APRN TESTER EQUIPMENT 6401 [place] [address] Assigned Surgical Provider 10/09/22 [place] [address] [facility] 300 [place] [address] Assigned Musculoskeletal Provider 10/09/22 Livan Sharif MD [address], [facility] [address] [place] [address] Assigned Heart and Vascular Provider 11/06/22 11/12/22 Catherine Cm MD [address] [facility] [address] [place] [address] Assigned Heart and Vascular Provider 11/13/22 05/27/23 Sydnie Martinez RN Personal Advocate & Liaison (PAL) Family Medicine 03/28/23 07/31/23 Alfonso Renteria MD [address] [facility] 200 [place], [place] 270546 Assigned Neuroscience Provider 04/02/23 Cheng Todd PA-C [address] [place] [address] Assigned PCP 04/30/23 07/15/23 Radha Lomeli APRN TESTER EQUIPMENT [address] [place] [address] Assigned Heart and Vascular Provider 05/28/23 Jelena David OD [address] [place] [address] MD Ophthalmology 06/15/23 Pao Joseph, VJ Personal Advocate & Liaison (PAL) Nurse 08/01/23 11/07/23 Esha Grimm PA-C [address] [place] [phone] Assigned PCP 07/16/23 Valery Veronica PA-C [address] [place] [address] 598435 Physician Content Management Consultant Dermatology 09/19/23 Rey Tay MD [address] [place] [address] 846465 Gastroenterology 09/20/23 Rocky Zepeda DO [address] [place] [address] 029495 Physician Gastroenterology 09/20/23 Philip Dumont MD [address] [place] [address] 424245 Physician Ophthalmology 09/22/23 Meredith Carrera PA-C [address] [place] [address] 753725 Assigned Gastroenterology Provider 11/01/23 Neil Kent MD [address] [address] Dermatology 11/02/23 [place] [address] [place] [address] 817057 Neurological Surgery 12/26/23 Audrey Waite PA-C 500 [place], [place] 560[address] Physician Content Management Consultant Dermatology 02/28/24 documented as of this encounter
--- OUTSIDE RECORDS SUMMARY | 2024-03-12 19:38 | XMS_ITS | Encounter Summary ---
Author Organization [place] Address [address] [place] [address] Care Team Providers Care Religious Educator Name Role Phone Lita Oseguera Unavailable Unavailable Marija Edgar APRN TANBARK LABORER Primary Care Provider U Marija Bella APRN TANBARK LABORER Unavailable Unavail able Keisha Dotson MD Unavailable [phone] Diana Desir [facility] Unavailable Rain Galaviz PA-C Unavailable Tavia Wyatt MD Unavailable Unavailable Erica Farrell APRN TANBARK LABORER Unavailable Rich Barrett MD Unavailable [phone] Neil Kent MD Unavailable Diana Desir [facility] Unavailable [phone] Jelena David OD Unavailable Livan Sharif MD Unavailable Catherine Cm MD Unavailable + Valery Veronica PA-C Unavailable [phone] Catherine Cm MD Unavailable + Johnny Murillo MD Unavailable [phone] Brea Quinn CAR REPAIRER HELPER TANBARK LABORER Unavailable [phone] Brea Quinn CAR REPAIRER HELPER TANBARK LABORER Unavailable [phone] Jose Francisco Johnson MD Unavailable Livan Sharif MD Unavailable Catherine Cm MD Unavailable + Sydnie Martinez RN Unavailable Unavailable Alfonso Renteria MD Unavailable [phone] Esha Grimm PA-C Primary Care Provider Cheng Todd PA-C Unavailable Radha Lomeli CAR REPAIRER HELPER TANBARK LABORER Unavailable Jelena David OD Unavailable Pao Joseph RN Unavailable Unavailable Esha Grimm PA-C Unavailable [phone] Valery Veronica PA-C Unavailable Rey Tay MD Unavailable Rocky Zepeda DO Unavailable Philip Dumont MD Unavailable Meredith Carrera PA-C Unavailable [phone] Neil Kent MD Unavailable Juan Pablo Emmanuel MD Unavailable Audrey Waite PA-C Unavailable [phone] Encounter Details Date Type Department Care Team (Late st Contact Info) Description 10/06/2022 [facility] [address] [facility] [place] [address] Brea Quinn, CAR REPAIRER HELPER TANBARK LABORER 64[address] [facility] [place] [address] Social History Tobacco Use [...] How often do you attend lutheran or samaritan serv ices? Never 09/22/2021 Do [...] points; Administer PHQ-9 if positive 1 10/[facility]/2022 [facility] - Occupational Stress Questionnaire Answer [...] in a long-term (including now)? No 09/22/2021 [place] Depression Scale Answer Date Recorded [place] Depression Score 5 01/14/2021 Last EPDS Self [...] Visit [facility] Spine and Neurosurgery [address] [facility] [address] [place] [address] Ebony Cid, [facility] 500 [place], [place] [address] 03/27/2024 11:00 AM CDT Office Visit [facility] [address] [facility] [address] [place] [address] Jelena David, [address] [facility] [address] 04/19/2024 2:45 PM CDT Office Visit [facility] 830 [place] [address] Audrey Waite PA-C [address] [facility] [address], [facility] 603 [place], [place] [address] 05/08/2024 1:30 PM CDT Office Visit [facility] [address] [place] [address] Lauren Claudio PA-C [address] [place], [place] [phone] Esha Grimm PA-C [address] [place] [phone] 06/21/2024 2:00 PM COLLEGE BASKETBALL COACH Office Visit [facility] Neurology [facility] [address] [facility], [address] [place] [address] [place] [address] [place], [place] [address] Johnny Penn MD [address] [facility] [place] [address] Scheduled Procedures Name Priority Associated [...] Depression Total Score: 5 08/27/19 1:14 PM COLLEGE BASKETBALL COACH documented as of this encounter Care Teams Religious Educator Relationship Specialty Start Date End Date Marija Edgar APRN TANBARK LABORER PCP - General Nurse Practitioner 04/30/20 04/14/23 Esha Grimm PA-C [address] [place] [phone] PCP - General Family Medicine 05/04/23 Lita Oseguera Personal Advocate & Liaison (PAL) 02/28/20 03/27/23 Marija Edgar APRN TANBARK LABORER Assigned PCP 06/08/20 04/29/23 Keisha Dotson MD [address] [place] [address] Assigned Neuroscience Provider 06/04/20 04/01/23 Diana Desir, [facility] [address] [place] [address] Pharmacist Pharmacist 04/17/21 Rain Galaviz PA-C [address] [place] [address] [address] [place] [address] Physician Sports Management Internship Dermatology 04/28/21 Tavia Wyatt MD [address] [place] [address] [place] [address] Dermatology 07/14/21 Erica Farrell APRN TANBARK LABORER [address] [place] [address] Nurse Practitioner Cardiovascular Disease 09/09/21 Rich Barrett MD [address] [place] [address] 067035 Physician Ophthalmology 01/21/22 Neil Kent MD [address] [place] [address] Dermatology 02/24/22 Diana Desir, [facility] [address] [place] [address] Assigned MTM Pharmacist 04/07/22 Jelena David OD [address] [place] [address] [place] [address] Assigned Surgical Provider 05/08/22 10/08/22 Livan Sharif MD [address], [facility] [address] [place] [address] Cardiovascular Disease 05/14/22 Catherine Cm MD [address] [facility]00 [place] [address] Cardiovascular Disease 07/21/22 Valery Veronica, PAUcheC [address] [place] [address] Physician Sports Management Internship Dermatology 07/21/22 Catherine Cm MD [address] [facility] [place] [address] Assigned Heart and Vascular Provider 07/24/22 11/05/22 [place] [address] [place] [address] Assigned Musculoskeletal Provider 08/14/22 10/08/22 Brea Quinn APRN TANBARK LABORER [address] [place] [address] Nurse Practitioner Dermatology 09/21/22 Brea Quinn APRN TANBARK LABORER [address] [place] [address] Assigned Surgical Provider 10/09/22 [place] [address] [place] [address] Assigned Musculoskeletal Provider 10/09/22 Livan Sharif MD [address], [facility] [address] [place] [address] Assigned Heart and Vascular Provider 11/06/22 11/12/22 Catherine Cm MD [address] [facility] [address] [place] [address] Assigned Heart and Vascular Provider 11/13/22 05/27/23 Sydnie Martinez RN Personal Advocate & Liaison (PAL) Family Medicine 03/28/23 07/31/23 Alfonso Renteria MD [address] [facility] 200 [place] [address] Assigned Neuroscience Provider 04/02/23 Cheng Todd PA-C [address] [place] [address] Assigned PCP 04/30/23 07/15/23 Radha Lomeli, CAR REPAIRER HELPER TANBARK LABORER [address] [place] [address] Assigned Heart and Vascular Provider 05/28/23 Jelena David OD [facility]5 [facility] [place] [address] Ophthalmology 06/15/23 Pao Joseph, VJ Personal Advocate & Liaison (PAL) Nurse 08/01/23 11/07/23 Esha Grimm PAUcheC [address] [place] [address] Assigned PCP 07/16/23 Valery Veronica PA-C [address] [place] [address] Physician Sports Management Internship Dermatology 09/19/23 Rey Tay MD [address] [place] [address] MD Gastroenterology 09/20/23 Rocky Zepeda DO [address] [place] [address] 011695 Physician Gastroenterology 09/20/23 Philip Dumont MD [address] [place] [address] Physician Ophthalmology 09/22/23 Meredith Carrera PA-C [address] [place] [address] Assigned Gastroenterology Provider 11/01/23 Neil Kent MD [address] [address] Dermatology 11/02/23 [place] [address] [place], [place] 5668[address] Neurological Surgery 12/26/23 Audrey Waite PA-C [address] [place] [address] 685895 Physician Sports Management Internship Dermatology 02/28/24 documented as of this encounter
--- OUTSIDE RECORDS SUMMARY | 2024-03-12 19:38 | XMS_ITS | Encounter Summary ---
Author Organization [facility] Address [address] [place] [address] Care Team Providers Care Insurance Policy Clerk Name Role Phone Lita Oseguera Unavailable Unavailable Marija Edgar APRN TELEPHONE SOLICITOR SUPERVISOR Primary Care Provider U Marija Bella APRN TELEPHONE SOLICITOR SUPERVISOR Unavailable Unavail able Keisha Dotson MD Unavailable [phone] Diana Desir [facility] Unavailable Rain Galaviz-C Unavailable [phone] Tavia Wyatt MD Unavailable Unavailable Erica Farrell APRN TELEPHONE SOLICITOR SUPERVISOR Unavailable Tavia Wyatt MD Unavailable Unavailable Rich Barrett MD Unavailable [phone] Neil Kent MD Unavailable Roney StoryM Unavailable [phone] Diana Desir [facility] Unavailable [phone] Jelena David OD Unavailable [phone] Galo Burrell MD Unavailable Unavailable Livan Sharif MD Unavailable Livan Sharif MD Unavailable Catherine Cm MD Unavailable + Valery Veronica PA-C Unavailable [phone] Catherine Cm MD Unavailable + Johnny Murillo MD Unavailable [phone] Brea Quinn BI DEVELOPER TELEPHONE SOLICITOR SUPERVISOR Unavailable [phone] Brea Quinn BI DEVELOPER TELEPHONE SOLICITOR SUPERVISOR Unavailable [phone] Jose Francisco Johnson MD Unavailable Livan Sharif MD Unavailable Catherine Cm MD Unavailable + Sydnie Martinez RN Unavailable Unavailable Alfonso Renteria MD Unavailable [phone] Esha Grimm PA-C Primary Care Provider Cheng Todd PA-C Unavailable Radha Lomeli BI DEVELOPER TELEPHONE SOLICITOR SUPERVISOR Unavailable Tommy Davidmao Templetone OD Unavailable Pao Joseph RN Unavailable Unavailable Esha Grimm PA-C Unavailable [phone] Valery Veronica PA-C Unavailable [phone] Rey Tay MD Unavailable Rocky Zepeda DO Unavailable Philip Dumont MD Unavailable [phone] Meredith Carrera PA-C Unavailable Neil Kent MD Unavailable Juan Pablo Emmanuel MD Unavailable Audrey Waite PA-C Unavailable Encounter Details Date Type Department Care Team (Late st Contact Info) Description 05/01/[address] [address] ThangDiana, [facility] [address] [place] [address] Social History Tobacco Use Types Packs/Day Years [...] How often do you attend yazdanism or latter-day serv ices? Never 09/22/2021 Do [...] Answer Date Recorded PHQ-2 Score 2 12/18/2021 [facility] - Occupational [...] in a longterm (including now)? No 09/22/2021 [place] Depression Scale Answer Date Recorded [place] Depression Score 5 01/14/2021 Last EPDS Self [...] Description 03/26/2024 11:20 AM CDT Office Visit [facility] [address] [facility] [address] [place] [address] Ebony Cid, BI DEVELOPER TELEPHONE SOLICITOR SUPERVISOR 500 [place], [place] [address] 03/27/2024 11:00 AM CDT Office Visit [facility] [address] [facility] [address] [place] [address] Jelena David, [address] [facility] [address] 04/19/2024 2:45 PM CDT Office Visit [facility] 830 [place] [phone] Audrey Waite PA-C [address] [facility] [address], [facility] 603 [place], [place] [address] 05/08/2024 1:30 PM CDT [facility] Visit [facility] [address] [place] [phone] Lauren Claudio PA-C [address] [place] [address] Esha Grimm PA-C [address] [place] [phone] 06/21/2024 2:00 PM LUMBER SORTER Office Visit [facility] [address] [facility], [address] [place] [address] [place] [address] [place] [address] Johnny Penn MD [address] [place] [address] Scheduled Procedures Name Priority Associated Diagnoses Date/Ti ri ESOPHAGOGASTRODUODENOSCOPY Eosinophilic esophagitis Esophageal dysphagia documented as of this encounter Visit Diagnoses Not on filedocumented in this encounter Additional Health Concerns Infection Onset Date Last Indicated Resolved Time Rule Out COVID-19 05/17/2022 05/17/2022 05/17/2022 10:20 PM LUMBER SORTER Rule Out COVID-19 06/09/2022 06/09/2022 06/09/2022 9:35 AM LUMBER SORTER COVID-19 06/09/2022 06/09/2022 06/30/2022 11:4 1 PM LUMBER SORTER Rule Out COVID-19 11/10/2022 11/10/2022 11/11/2022 12:17 PM CDT Rule Out COVID-19 03/07/2023 03/07/2023 03/07/2023 1:20 PM CDT Rule Out COVID-19 12/26/2023 12/26/2023 12/26/2023 9:50 AM CDT Assessment Noted Time PHQ-9 Depression Total Score: 2 12/19/19 22 2:50 PM CDT documented as of this encounter Care Teams Insurance Policy Clerk Relationship Specialty Start Date End Date Marija Edgar APRN TELEPHONE SOLICITOR SUPERVISOR PCP - General Nurse Practitioner 04/30/20 04/14/23 Esha Grimm PA-C [address] [place] [address] PCP - General Family Medicine 05/04/23 Lita Oseguera Personal Advocate & Liaison (PAL) 02/28/20 03/27/23 Marija Edgar APRN TELEPHONE SOLICITOR SUPERVISOR Assigned PCP 06/08/20 04/29/23 Keisha Dotson MD 909 [place] [address] Assigned Neuroscience Provider 06/04/20 04/01/23 Diana Desir, [facility] [address] [place], [place] [address] Pharmacist Pharmacist 04/17/21 Rain Galaviz PA-C [address] [place] [address] [address] [place] [place] [address] Physician Returned Goods Receiving Clerk Dermatology 04/28/21 Tavia Wyatt MD [address] [place] [address] [address] [place] [place] [address] Dermatology 07/14/21 Erica Farrell APRN TELEPHONE SOLICITOR SUPERVISOR [address] [facility] [address] [place] [address] Nurse Practitioner Cardiovascular Disease 09/09/21 Tavia Wyatt MD Assigned Surgical Provider 11/29/21 05/07/22 Rich Barrett MD [address] [facility] [address] [place], [place] [address] Physician Ophthalmology 01/21/22 Neil Kent MD [address] [place], [place] [address] Dermatology 02/24/22 Roney Story DPM [address] [facility] [address] [place], [place] [address] Assigned Musculoskeletal Provider 03/20/22 08/13/22 Diana Desir, [facility] [address] [place], [place] [address] Assigned MTM Pharmacist 04/07/22 Jelena David OD [address] [facility] [address] Assigned Surgical Provider 05/08/22 10/08/22 Galo Burrell MD Assigned Heart and Vascular Provider 04/17/22 06/11/22 Livan Sharif MD [address] [facility]00 [place] [address] Cardiovascular Disease 05/14/22 Livan Sharif MD [address] [place] [address] Assigned Heart and Vascular Provider 06/12/22 07/23/22 Catherine Cm MD [address] [place] [address]85 Cardiovascular Disease 07/21/22 Valery Veronica, PA-C [address] [place] [address] Physician Returned Goods Receiving Clerk Dermatology 07/21/22 Catherine Cm MD [address] [facility] [address] [facility] [place] [address] Assigned Heart and Vascular Provider 07/24/22 11/05/22 Johnny Murillo MD [address] [place] [address] Assigned Musculoskeletal Provider 08/14/22 10/08/22 Brea Quinn APRN TELEPHONE SOLICITOR SUPERVISOR [address] [place] [address] Nurse Practitioner Dermatology 09/21/22 Brea Quinn APRN TELEPHONE SOLICITOR SUPERVISOR [address] [place] [address] Assigned Surgical Provider 10/09/22 [place] [address] [place] [address] Assigned Musculoskeletal Provider 10/09/22 Livan Sharif MD [address] [place] [address] [place] [address] Assigned Heart and Vascular Provider 11/06/22 11/12/22 Catherine Cm MD [address] [facility] S [facility] [place] [address] Assigned Heart and Vascular Provider 11/13/22 05/27/23 Sydnie Martinez, RN Personal Advocate & Liaison (PAL) Family Medicine 03/28/23 07/31/23 Alfonso Renteria MD [address] [facility] 200 [place] [address] Assigned Neuroscience Provider 04/02/23 Cheng Todd PA-C [address] [place] [address] Assigned PCP 04/30/23 07/15/23 Radha Lomeli APRN TELEPHONE SOLICITOR SUPERVISOR [address] [place] [phone] [place] [address] Assigned Heart and Vascular Provider 05/28/23 Jelena David OD [address] [facility] [address] Ophthalmology 06/15/23 Pao Joseph, VJ Personal Advocate & Liaison (PAL) Nurse 08/01/23 11/07/23 Esha Grimm PA-C [address] [place] [address] Assigned PCP 07/16/23 Valery Veronica PA-C [address] [place] [address] Physician Returned Goods Receiving Clerk Dermatology 09/19/23 Rey Tay MD [address] [place] [address] 285845 Gastroenterology 09/20/23 Rocky Zepeda DO [address] [place] [address] Physician Gastroenterology 09/20/23 Philip Dumont MD [address] [place] [address] Physician Ophthalmology 09/22/23 Meredith Carrera PA-C [address] [place] [address] Assigned Gastroenterology Provider 11/01/23 Neil Kent MD [address] [place] [address] 653840 MD Dermatology 11/02/23 [place] [address] [place] [address] 822117 Neurological Surgery 12/26/23 Audrey Waite PA-C [address] [place] [address] 639[address] Physician Returned Goods Receiving Clerk Dermatology 02/28/24 documented as of this encounter
--- OUTSIDE RECORDS SUMMARY | 2024-03-12 19:38 | XMS_ITS | Encounter Summary ---
Author Organization [facility] Address [address] [place] [address] Care Team Providers Care Environmental Health Specialist Name Role Phone Lita Oseguera Unavailable Unavailable Marija Edgar APRN SPECIAL AGENT SECRET SERVICE Primary Care Provider U Marija Bella APRN SPECIAL AGENT SECRET SERVICE Unavailable Unavail able Keisha Dotson MD Unavailable [phone] Diana Desir [facility] Unavailable [phone] Rain Galaviz-C Unavailable Tavia Wyatt MD Unavailable Unavailable Erica Farrell APRN SPECIAL AGENT SECRET SERVICE Unavailable Rich Barrett MD Unavailable [phone] Neil Kent MD Unavailable Roney Story DPM Unavailable [phone] Diana Desir [facility] Unavailable [phone] Jelena David OD Unavailable Livan Sharif MD Unavailable Livan Sharif MD Unavailable Catherine Cm MD Unavailable + Valery Veronica PA-C Unavailable [phone] Catherine Cm MD Unavailable + Johnny Murillo MD Unavailable [phone] Brea Quinn AUTOMATIC BOW MAKER MACHINE TENDER SPECIAL AGENT SECRET SERVICE Unavailable [phone] Brea Quinn AUTOMATIC BOW MAKER MACHINE TENDER SPECIAL AGENT SECRET SERVICE Unavailable [phone] Jose Francisco Johnson MD Unavailable Livan Sharif MD Unavailable Catherine Cm MD Unavailable + Sydnie Martinez RN Unavailable Unavailable Alfonso Renteria MD Unavailable + [phone] Esha Grimm PA-C Primary Care Provider Cheng Todd PA-C Unavailable Radha Lomeli AUTOMATIC BOW MAKER MACHINE TENDER SPECIAL AGENT SECRET SERVICE Unavailable [phone] Jelena David OD Unavailable [phone] Pao Joseph RN Unavailable Unavailable Esha Grimm PA-C Unavailable [phone] Valery Veronica PA-C Unavailable Rey Tay MD Unavailable Rocky Zepeda DO Unavailable Philip Dumont MD Unavailable [phone] Meredith Carrera PA-C Unavailable [phone] Neil Kent MD Unavailable Juan Pablo Emmanuel MD Unavailable [phone] Audrey Waite PA-C Unavailable [phone] Encounter Details Date Type Department Care Team (Late st Contact Info) Description 07/20/2022 [facility] Heart [address] [address] Donahue, Pao, RN Social History Tobacco Use Types Packs/Day [...] How often do you attend advent or sikh serv ices? Never 09/22/2021 Do [...] points; Administer PHQ-9 if positive 1 05/13/2022 [facility] - Occupational Stress Questionnaire Answer [...] in a detention (including now)? No 09/22/2021 [place] Depression Scale Answer Date Recorded [place] Depression Score 5 01/14/2021 Last EPDS Self [...] Coronavirus/COVID-19? No / Unsure 07/23/2022 6:45 AM MASTER CHEF documented as of this encounter Plan of Treatment Upcoming Encounters Date Type Department Care Team (Late st Contact Info) Description 03/26/2024 11:20 AM CDT Office Visit [facility] 17[address] [facility] 100 [place] [address] Ebony Cid, AUTOMATIC BOW MAKER MACHINE TENDER SPECIAL AGENT SECRET SERVICE 500 [place], [place] [phone] 03/27/2024 11:00 AM CDT [facility] [address] [facility] [address] [place] [phone] Jelena David, [address] [facility] [id number] 04/19/2024 2:45 PM CDT Office Visit [facility] 830 [place] [phone] Audrey Waite PA-C [address] [facility] [address], [facility] 603 [place], [place] [address] 05/08/2024 1:30 PM CDT Office Visit [facility] [address] [place] [address] Lauren Claudio PA-C [address] [place] [address] Esha Grimm PA-C [address] [place] [address] 06/21/2024 2:00 PM MASTER CHEF [facility] [address] [facility], [address] [place] [address] [place] [address] [place] [address] Johnny Penn MD [address] [place] [address] Scheduled Procedures Name Priority [...] of this encounter Care Teams Environmental Health Specialist Relationship Specialty Start Date End Date Marija Edgar APRN SPECIAL AGENT SECRET SERVICE PCP - General Nurse Practitioner 04/30/20 04/14/23 Esha Grimm PA-C [address] [place] [phone] PCP - General Family Medicine 05/04/23 Lita Oseguera Personal Advocate & Liaison (PAL) 02/28/20 03/27/23 Marija Edgar APRN SPECIAL AGENT SECRET SERVICE Assigned PCP 06/08/20 04/29/23 Keisha Dotson MD 909 [place] [address] Assigned Neuroscience Provider 06/04/20 04/01/23 Diana Desir [facility] [address] [address] Pharmacist Pharmacist 04/17/21 Rain Galaviz PA-C [address] [place] [address] [address] [place] [id number] Physician Washing Tub Operator Dermatology 04/28/21 Tavia Wyatt MD [address] [place] [address] [place] [address] Dermatology 07/14/21 Erica Farrell APRN SPECIAL AGENT SECRET SERVICE [address] [place] [address] Nurse Practitioner Cardiovascular Disease 09/09/21 Rich Barrett MD 516 [facility] 9A [place] [address] Physician Ophthalmology 01/21/22 Neil Kent MD [address] [place] [address] Dermatology 02/24/22 Roney Story DPM [address] [facility] [address] [place] [address] Assigned Musculoskeletal Provider 03/20/22 08/13/22 Diana Desir [facility] 3033 [place] [address] Assigned MTM Pharmacist 04/07/22 Jelena David OD [address] [place] [address] [place] [id number] Assigned Surgical Provider 05/08/22 10/08/22 Livan Sharif MD [address] [place] [address] Cardiovascular Disease 05/14/22 Livan Sharif MD [address] [place] [address] Assigned Heart and Vascular Provider 06/12/22 07/23/22 Catherine Cm MD [address] [place] [address] Cardiovascular Disease 07/21/22 Valery Veronica, PA-C [address] [place] [address] Physician Washing Tub Operator Dermatology 07/21/22 Catherine Cm MD [address] [place] [address] Assigned Heart and Vascular Provider 07/24/22 11/05/22 Johnny Murillo MD [address] [address] Assigned Musculoskeletal Provider 08/14/22 10/08/22 Brea Quinn APRN SPECIAL AGENT SECRET SERVICE 500 [place] [address] Nurse Practitioner Dermatology 09/21/22 Brea Quinn APRN SPECIAL AGENT SECRET SERVICE [address] [facility] [place] [address] Assigned Surgical Provider 10/09/22 [place] [address] [place] [address] Assigned Musculoskeletal Provider 10/09/22 Livan Sharif MD [address] [place] [address] Assigned Heart and Vascular Provider 11/06/22 11/12/22 Catherine Cm MD [address] [place] [address] Assigned Heart and Vascular Provider 11/13/22 05/27/23 Sydnie Martinez, VJ Personal Advocate & Liaison (PAL) Family Medicine 03/28/23 07/31/23 Alfonso Renteria MD 5775 [facility] 200 [place] [address] Assigned Neuroscience Provider 04/02/23 Cheng Todd PA-C [address] [place] [address] Assigned PCP 04/30/23 07/15/23 Radha Lomeli APRN SPECIAL AGENT SECRET SERVICE [address] [place] [address] Assigned Heart and Vascular Provider 05/28/23 Jelena David OD [address] [place] [id number] MD Ophthalmology 06/15/23 Pao Joseph, RN Personal Advocate & Liaison (PAL) Nurse 08/01/23 11/07/23 Esha Grimm PA-C [address] [place] [phone] Assigned PCP 07/16/23 Valery Veronica PA-C [address] [place] [address] 728225 Physician Washing Tub Operator Dermatology 09/19/23 Rey Tay MD [address] [place] [address] 747335 Gastroenterology 09/20/23 Rocky Zepeda DO [address] [place] [address] 368955 Physician Gastroenterology 09/20/23 Philip Dumont MD [address] [place] [address] 892665 Physician Ophthalmology 09/22/23 Meredith Carrera PA-C [address] [place] [address] 521575 Assigned Gastroenterology Provider 11/01/23 Neil Kent MD [address] [place] [address] 493440 Dermatology 11/02/23 [place] [address] [address] [address] Neurological Surgery 12/26/23 Audrey Waite PAUcheC 500 [place], [place] 214[address] Physician Washing Tub Operator Dermatology 02/28/24 documented as of this encounter
--- OUTSIDE RECORDS SUMMARY | 2024-03-12 19:38 | XMS_ITS | Encounter Summary ---
Author Organization [place] Address [address] [place] [address] Care Team Providers Care Tray Line Worker Name Role Phone Lita Oseguera Unavailable Unavailable Marija Egdar APRN BENCH LAY OUT TECHNICIAN Primary Care Provider U Marija Bella APRN BENCH LAY OUT TECHNICIAN Unavailable Unavail able Keisha Dotson MD Unavailable [phone] Diana Desir [facility] Unavailable [phone] Rain Galaviz-C Unavailable [phone] Tavia Wyatt MD Unavailable Unavailable Erica Farrell APRN BENCH LAY OUT TECHNICIAN Unavailable Rich Barrett MD Unavailable [phone] Neil Kent MD Unavailable Roney Story DPM Unavailable [phone] Diana Desir [facility] Unavailable [phone] Jelena David OD Unavailable Livan Sharif MD Unavailable Livan Sharif MD Unavailable Catherine Cm MD Unavailable + Valery Veronica PA-C Unavailable [phone] Catherine Cm MD Unavailable + Johnny Murillo MD Unavailable [phone] Brea Quinn APPLIANCE ADJUSTER BENCH LAY OUT TECHNICIAN Unavailable [phone] Brea Quinn APPLIANCE ADJUSTER BENCH LAY OUT TECHNICIAN Unavailable [phone] Jose Francisco Johnson MD Unavailable Livan Sharif MD Unavailable Catherine Cm MD Unavailable + Sydnie Martinez RN Unavailable Unavailable Alfonso Renteria MD Unavailable + [phone] Esha Grimm PA-C Primary Care Provider Cheng Todd PA-C Unavailable Radha Lomeli APPLIANCE ADJUSTER BENCH LAY OUT TECHNICIAN Unavailable [phone] Jelena David OD Unavailable [phone] Pao Joseph RN Unavailable Unavailable Esha Grimm PA-C Unavailable [phone] Valery Veronica PA-C Unavailable Rey Tay MD Unavailable Rocky Zepeda DO Unavailable Philip Dumont MD Unavailable [phone] Meredith Carrera PA-C Unavailable [phone] Neil Kent MD Unavailable Juan Pablo Emmanuel MD Unavailable Audrey Waite PA-C Unavailable [phone] Reason for Visit * Reason Onset Date Comments Appointment 06/14/2022 Stress test and monitor on the same day Encounter Details Date Type Department Care Team (Late st Contact Info) Description 06/14/2022 [facility] [place] [id number] [facility] [address] [place] [phone] Livan Sharif MD [address] [place] [address] Appointment (Stress test and monitor on the [...] How often do you attend jewish or jewish serv ices? Never 09/22/2021 Do [...] points; Administer PHQ-9 if positive 1 05/13/2022 [facility] - Occupational Stress Questionnaire Answer [...] in a prison (including now)? No 09/22/2021 [place] Depression Scale Answer Date Recorded [place] Depression Score 5 01/14/2021 Last EPDS Self [...] to have Coronavirus/COVID-19? Yes 06/16/2022 12:32 PM CREATIVE ENGAGEMENT DIRECTOR documented as of this encounter Miscellaneous Notes * Telephone Encounter - Amalia Matute MA - 06/14/2022 9:30 AM CST [facility] Phone Message May a detailed message be left on voicemail: yes Reason for Call: Other: Pt is needing to reschedule her stress test and ziopatch monitor on the same day. Fridays work best or -Th at 3:30. Please call pt back to schedule. Thank you Action Taken: Message routed to: Other: Cardiology Travel Screening: Not Applicable Thank you! [facility] TIVE ENGAGEMENT DIRECTOR documented in this encounter Plan of Treatment Upcoming Encounters Date Type Department Care Team (Late st Contact Info) Description 03/26/2024 11:20 AM CDT Office Visit [facility] Neurosurgery [address] [facility] [address] [place] [phone] Ebony Cid, APPLIANCE ADJUSTER BENCH LAY OUT TECHNICIAN [address] [place] [address] 03/27/2024 11:00 AM CDT Office Visit [facility] Mons[place] [address] [place] [phone] Jelena David, OD [address] [facility] [place] [address] 04/19/2024 2:45 PM CDT Office Visit [address] [address] Audrey Waite PA-C [address], [facility] 6[address] [place], [place] [address] 05/08/2024 1:30 PM CDT Office Visit [facility] [address] [place] [address] Lauren Claudio PA-C [address] [place] [address] Esha Grimm PA-C [address] [place] [address] 06/21/2024 2:00 PM CREATIVE ENGAGEMENT DIRECTOR Office Visit [facility] Neurology [facility] - [address], [address] [place] [address] [place] [address] [place] [address] [id number] Johnny Penn MD [address] [place], [place] [phone] Scheduled Procedures Name Priority Associated Diagnoses Date/Ti me ESOPHAGOGASTRODUODENOSCOPY Eosinophilic esophagitis Esophageal dysphagia documented as of this encounter Visit Diagnoses Not on filedocumented in this encounter Additional Health Concerns Infection Onset Date Last Indicated Resolved Time COVID-19 06/09/2022 06/09/2022 06/30/2022 11:4 1 PM CREATIVE ENGAGEMENT DIRECTOR Rule Out COVID-19 11/10/2022 11/10/2022 11/11/2022 12:17 PM CDT Rule Out COVID-19 03/07/2023 03/07/2023 03/07/2023 1:20 PM CDT Rule Out COVID-19 12/26/2023 12/26/2023 12/26/2023 9:50 AM CDT Assessment Noted Time PHQ-9 Depression Total Score: 3 05/13/20 8:49 PM CDT documented as of this encounter Care Teams Tray Line Worker Relationship Specialty Start Date End Date Marija Edgar APRN BENCH LAY OUT TECHNICIAN PCP - General Nurse Practitioner 04/30/20 04/14/23 Esha Grimm PA-C [address] [place] [phone] PCP - General Family Medicine 05/04/23 Lita Oseguera Personal Advocate & Liaison (PAL) 02/28/20 03/27/23 Marija Edgar APRN BENCH LAY OUT TECHNICIAN Assigned PCP 06/08/20 04/29/23 Keisha Dotson MD [address] [place], [place] 39[address] Assigned Neuroscience Provider 06/04/20 04/01/23 Diana Desir, [facility] [address] [place] [address] Pharmacist Pharmacist 04/17/21 Rain Galaviz PA-C [address] [place] [address] [address] [place] [address] Physician Beam Dyer Operator Dermatology 04/28/21 Tavia Wyatt MD [address] [place] [address] [place] [address] Dermatology 07/14/21 Erica Farrell APRN BENCH LAY OUT TECHNICIAN [address] [place] [address] Nurse Practitioner Cardiovascular Disease 09/09/21 Rich Barrett MD [address] [facility] [address] [place], [place] [address] Physician Ophthalmology 01/21/22 Neil Kent MD 500 [place] [address] Dermatology 02/24/22 Roney Story DPM [address] [facility] [address] [place] [address] Assigned Musculoskeletal Provider 03/20/22 08/13/22 [facility] [address] [place] [address] Assigned MTM Pharmacist 04/07/22 Jelena David OD [address] [facility] [place] [address] Assigned Surgical Provider 05/08/22 10/08/22 Livan Sharif MD [address] [place] [address] Cardiovascular Disease 05/14/22 Livan Sharif MD [address] [place] [address] Assigned Heart and Vascular Provider 06/12/22 07/23/22 Catherine Cm MD [address] [place] [address] Cardiovascular Disease 07/21/22 Valery Veronica, [place] [address] [place] [address] Physician Beam Dyer Operator Dermatology 07/21/22 Catherine Cm MD [address] [place] [address] Assigned Heart and Vascular Provider 07/24/22 11/05/22 Johnny Murillo MD [address] [place] [address] Assigned Musculoskeletal Provider 08/14/22 10/08/22 Brea Quinn APRN BENCH LAY OUT TECHNICIAN [address] [place] [address] 767125 Nurse Practitioner Dermatology 09/21/22 Brea Quinn APRN BENCH LAY OUT TECHNICIAN [address] [place] [address] Assigned Surgical Provider 10/09/22 [place] [address] [place] [address] [address] Assigned Musculoskeletal Provider 10/09/22 Livan Sharif MD [address] [facility] [facility] [address] [place] [address] Assigned Heart and Vascular Provider 11/06/22 11/12/22 Catherine Cm MD [address] [place] [address] Assigned Heart and Vascular Provider 11/13/22 05/27/23 Sydnie Martinez RN Personal Advocate & Liaison (PAL) Family Medicine 03/28/23 07/31/23 Alfonso Renteria MD [address] [facility] 200 [place] [address] Assigned Neuroscience Provider 04/02/23 Cheng Todd PA-C [address] [place] [address] [id number] Assigned PCP 04/30/23 07/15/23 Radha Lomeli APRN BENCH LAY OUT TECHNICIAN [address] [place] [address] Assigned Heart and Vascular Provider 05/28/23 Jelena David OD [address] [facility] [place] [address] Ophthalmology 06/15/23 Pao Joseph RN Personal Advocate & Liaison (PAL) Nurse 08/01/23 11/07/23 Esha Grimm PA-C [address] [place] [address] Assigned PCP 07/16/23 Valery Veronica PA-C [address] [place] [address] Physician Beam Dyer Operator Dermatology 09/19/23 Rey Tay MD [address] [place] [address] MD Gastroenterology 09/20/23 Rocky Zepeda DO 500 [place] [address] Physician Gastroenterology 09/20/23 Philip Dumont MD [address] [place] [address] Physician Ophthalmology 09/22/23 Meredith Carrera PA-C [address] [place] [address] Assigned Gastroenterology Provider 11/01/23 Neil Kent MD [address] [address] Dermatology 11/02/23 [place] [address] [place] [address] Neurological Surgery 12/26/23 Audrey Waite PA-C [address] [place] [address] Physician Beam Dyer Operator Dermatology 02/28/24 documented as of this encounter
--- OUTSIDE RECORDS SUMMARY | 2024-03-12 19:39 | XMS_ITS | Encounter Summary ---
Author Organization [place] Address [address] [place] [address] Care Team Providers Care Professor Of Forest Planning Name Role Phone Lita Oseguera Unavailable Unavailable Marija Edgar APRN ELECTROMECHANICAL ASSEMBLER Primary Care Provider U Marija Bella APRN ELECTROMECHANICAL ASSEMBLER Unavailable Unavail able Keisha Dotson MD Unavailable Galo Burrell MD Unavailable Unavailable Diana Desir [facility] Unavailable [phone] Rain Galaviz PA-C Unavailable Summer Lara MD Unavailable [phone] Tavia Wyatt MD Unavailable Unavailable Johnny Murillo MD Unavailable Erica Farrell APRN ELECTROMECHANICAL ASSEMBLER Unavailable Tavia Wyatt MD Unavailable Unavailable Diana Desir [facility] Unavailable Rich Barrett MD Unavailable [phone] Neil Kent MD Unavailable Roney Story DPM Unavailable [phone] Erica Farrell AGRICULTURAL EXTENSION EDUCATOR ELECTROMECHANICAL ASSEMBLER Unavailable Diana Desir [facility] Unavailable [phone] Frankie, Jelena Radha OD Unavailable Galo Burrell MD Unavailable Unavailable Livan Sharif MD Unavailable + Livan Sharif MD Unavailable + IsCatherine hobbs MD Unavailable + Valery Veronica PA-C Unavailable [phone] Catherine Cm MD Unavailable + Johnny Murillo MD Unavailable [phone] Brea Quinn AGRICULTURAL EXTENSION EDUCATOR ELECTROMECHANICAL ASSEMBLER Unavailable [phone] Brea Quinn AGRICULTURAL EXTENSION EDUCATOR ELECTROMECHANICAL ASSEMBLER Unavailable [phone] Jose Francisco Johnson MD Unavailable Livan Sharif MD Unavailable + Catherine Cm MD Unavailable + Sydnie Martinez RN Unavailable Unavailable Alfonso Renteria MD Unavailable Esha Grimm PA-C Primary Care Provider Cheng Todd PA-C Unavailable Radha Lomeli AGRICULTURAL EXTENSION EDUCATOR ELECTROMECHANICAL ASSEMBLER Unavailable [phone] Jelena David OD Unavailable [phone] Pao Joseph RN Unavailable Unavailable Esha Grimm PA-C Unavailable [phone] Valery Veronica PA-C Unavailable [phone] Rey Tay MD Unavailable Rocky Zepeda DO Unavailable Philip Dumont MD Unavailable [phone] Meredith Carrera PA-C Unavailable [phone] Neil Kent MD Unavailable Juan Pablo Emmanuel MD Unavailable Audrey Waite PA-C Unavailable [phone] Encounter Details Date Type Department Care Team (Late st Contact Info) Description 01/22/2022 [facility] Medical Advice [address] [address] Diana Desir, [facility] [address] [place] [address] Social History Tobacco Use Types Packs/Day Years [...] How often do you attend jainism or congregational serv ices? Never 09/22/2021 Do [...] Answer Date Recorded PHQ-2 Score 2 12/18/2021 [facility]at ional [...] in a halfway (including now)? No 09/22/2021 [place] Depression Scale Answer Date Recorded [place] Depression Score 5 01/14/2021 Last EPDS Self [...] Description 03/26/2024 11:20 AM CDT Office Visit [facility] Spine and Neurosurgery [address] [facility] 100 [place] [address] Ebony Cid, ARLENE ELECTROMECHANICAL ASSEMBLER 500 [place], [place] [address] 03/27/2024 11:00 AM CDT Office Visit [facility] Monserrat [address] [facility] [address] [place] [phone] Jelena David, [address] [facility] [place] [address] 04/19/2024 2:45 PM CDT Office Visit [facility] 830 [place] [address] Audrey Waite PA-C [address] [facility] [address], [facility] 603 [place], [place] [address] 05/08/2024 1:30 PM CDT Office Visit [facility] [address] [place] [address] Lauren Claudio PA-C [address] [place] [address] Esha Grimm PA-C [address] [place] [address] 06/21/2024 2:00 PM CLERK MANAGER Office Visit [facility] Neurology [address], [address] [place] [address] [place] [address] [place] [address] Johnny Penn MD 6545 [place] [address] Scheduled Procedures Name Priority Associated [...] COVID-19 05/17/2022 05/17/2022 05/17/2022 10:20 PM CLERK MANAGER Rule Out COVID-19 06/09/2022 06/09/2022 06/09/2022 9:35 AM CLERK MANAGER COVID-19 06/09/2022 06/09/2022 06/30/2022 11:4 1 PM CLERK MANAGER Rule Out COVID-19 11/10/2022 11/10/2022 11/11/2022 12:17 PM CDT Rule Out COVID-19 03/07/2023 03/07/2023 03/07/2023 1:20 PM CDT Rule Out COVID-19 12/26/2023 12/26/2023 12/26/2023 9:50 AM CDT Assessment Noted Time PHQ-9 Depression Total Score: 2 12/19/19 2:50 PM CDT documented as of this encounter Care Teams Professor Of Forest Planning Relationship Specialty Start Date End Date Marija Edgar APRN ELECTROMECHANICAL ASSEMBLER PCP - General Nurse Practitioner 04/30/20 04/14/23 Esha Grimm PA-C [address] [place] [address] PCP - General Family Medicine 05/04/23 Lita Oseguera Personal Advocate & Liaison (PAL) 02/28/20 03/27/23 Marija Edgar APRN ELECTROMECHANICAL ASSEMBLER Assigned PCP 06/08/20 04/29/23 Keisha Dotson MD [address] [place], [place] [address] Assigned Neuroscience Provider 06/04/20 04/01/23 Galo Burrell MD Assigned Heart and Vascular Provider 10/05/20 04/02/22 [facility] 3033 [place] [address] Pharmacist Pharmacist 04/17/21 Rain Galaviz PA-C [address] [place] [address] [place] [address] Physician Public Health Dentist Dermatology 04/28/21 Summer Lara MD [address] [place] [address] Assigned OBGYN Provider 05/31/21 Tavia Wyatt MD [address] [place] [address] Dermatology 07/14/21 Johnny Murillo MD [address] [place] [address] Assigned Musculoskeletal Provider 08/30/21 03/17/22 Erica Farrell APRN ELECTROMECHANICAL ASSEMBLER [address] [facility] [address] [place] [address] Nurse Practitioner Cardiovascular Disease 09/09/21 Tavia Wyatt MD Assigned Surgical Provider 11/29/21 05/07/22 Diana Desir, [facility] [address] [place] [address] Assigned MTM Pharmacist 01/02/22 Rich Barrett MD [address] [facility] 9A [place], [place] [address] Physician Ophthalmology 01/21/22 Neil Kent MD [address] [place], [place] [address] Dermatology 02/24/22 Roney Story DPM [address] [facility] [address] [place] [address] Assigned Musculoskeletal Provider 03/20/22 08/13/22 Erica Farrell APRN ELECTROMECHANICAL ASSEMBLER 17[address] [place] [address] Assigned Heart and Vascular Provider 04/03/22 04/16/22 Diana Desir, [facility] [address] [place] [address] Assigned MTM Pharmacist 04/07/22 Jelena David OD [address] [place] [address] Assigned Surgical Provider 05/08/22 10/08/22 Galo Burrell MD Assigned Heart and Vascular Provider 04/17/22 06/11/22 Livan Sharif MD [address] [place] [address] Cardiovascular Disease 05/14/22 Livan Sharif MD [address] [place] [address] Assigned Heart and Vascular Provider 06/12/22 07/23/22 Catherine Cm MD [address] [place] [address] Cardiovascular Disease 07/21/22 Valery Veronica PAUcheC 909 [place] [address] Physician Public Health Dentist Dermatology 07/21/22 Catherine Cm MD [address] [place] [address] Assigned Heart and Vascular Provider 07/24/22 11/05/22 Johnny Murillo MD [address] [address] Assigned Musculoskeletal Provider 08/14/22 10/08/22 Brea Quinn APRN ELECTROMECHANICAL ASSEMBLER 500 [place] [address] Nurse Practitioner Dermatology 09/21/22 Brea Quinn APRN ELECTROMECHANICAL ASSEMBLER [address] [place] [address] Assigned Surgical Provider 10/09/22 [place] [address] [place] [address] [address] Assigned Musculoskeletal Provider 10/09/22 Livan Sharif MD [address], [facility] [address] [place], [place] [address] Assigned Heart and Vascular Provider 11/06/22 11/12/22 Catherine Cm MD [address] [facility] [address] [place] [address] Assigned Heart and Vascular Provider 11/13/22 05/27/23 Sydnie Martinez RN Personal Advocate & Liaison (PAL) Family Medicine 03/28/23 07/31/23 Alfonso Renteria MD [address] [facility] 200 [place] [address] Assigned Neuroscience Provider 04/02/23 Cheng Todd PA-C [address] [place] [address] Assigned PCP 04/30/23 07/15/23 Radha Lomeli APRN ELECTROMECHANICAL ASSEMBLER [address] [facility] [address] [place] [address] Assigned Heart and Vascular Provider 05/28/23 Jelena David OD [address] [place] [address] Ophthalmology 06/15/23 Pao Joseph, VJ Personal Advocate & Liaison (PAL) Nurse 08/01/23 11/07/23 Esha Grimm PA-C [address] [place] [address] Assigned PCP 07/16/23 Valery Veronica PA-C [address] [place] [address] Physician Public Health Dentist Dermatology 09/19/23 Rey Tay MD [address] [place] [address] Gastroenterology 09/20/23 Rocky Zepeda DO [address] [place] [address] 026675 Physician Gastroenterology 09/20/23 Philip Dumont MD [address] [place] [address] Physician Ophthalmology 09/22/23 Meredith Carrera PA-C [address] [place] [address] Assigned Gastroenterology Provider 11/01/23 Neil Kent MD [address] [place] [address] Dermatology 11/02/23 [place] [address] [place], [place] [address] Neurological Surgery 12/26/23 Audrey Waite PA-C [address] [place] [address] Physician Public Health Dentist Dermatology 02/28/24 documented as of this encounter
--- OUTSIDE RECORDS SUMMARY | 2024-03-12 19:39 | XMS_ITS | Encounter Summary ---
Author Organization [facility] Address [address] [place] [address] Care Team Providers Care Frame Wirer Name Role Phone Lita Oseguera Unavailable Unavailable Marija Edgar APRN CLINICAL STUDIES SPECIALIST Primary Care Provider U Marija Bella APRN CLINICAL STUDIES SPECIALIST Unavailable Unavail able Mynor Broussard MD Unavailable [phone] Keisha Dotson MD Unavailable Galo Burrell MD Unavailable Unavailable Diana Desir [facility] Unavailable [phone] Rain Galaviz PA-C Unavailable Summer Lara MD Unavailable [phone] Tavia Wyatt MD Unavailable Unavailable Johnny Murillo MD Unavailable Erica Farrell APRN CLINICAL STUDIES SPECIALIST Unavailable Tavia Wyatt MD Unavailable Unavailable Diana Desir [facility] Unavailable [phone] Rich Barrett MD Unavailable [phone] Neil [place] MD Unavailable Roney StoryM Unavailable [phone] Erica Farrell APRN CLINICAL STUDIES SPECIALIST Unavailable Diana Desir [facility] Unavailable [phone] Jelena David OD Unavailable Galo Burrell MD Unavailable Unavailable Livan Sharif MD Unavailable Livan Sharif MD Unavailable IsCatherine hobbs MD Unavailable + Valery Veronica PA-C Unavailable [phone] Catherine Cm MD Unavailable + Johnny Murillo MD Unavailable [phone] Brea Quinn MEDICAL INSTRUMENT CABLE FABRICATOR CLINICAL STUDIES SPECIALIST Unavailable [phone] Brea Quinn MEDICAL INSTRUMENT CABLE FABRICATOR CLINICAL STUDIES SPECIALIST Unavailable [phone] Jose Francisco Johnson MD Unavailable Livan Sharif MD Unavailable + IsCatherine hobbs MD Unavailable + Sydnie Martinez RN Unavailable Unavailable Alfonso Renteria MD Unavailable [phone] Esha Grimm PA-C Primary Care Provider Cheng Todd PA-C Unavailable Radha Lomeli APRN CLINICAL STUDIES SPECIALIST Unavailable [phone] Jelena David OD Unavailable Pao Joseph RN Unavailable Unavailable Esha Grimm PA-C Unavailable [phone] Valery Veronica PA-C Unavailable [phone] Rey Tay MD Unavailable Rocky Zepeda DO Unavailable Philip Dumont MD Unavailable [phone] Meredith Carrera PA-C Unavailable Neil [place] MD Unavailable Juan Pablo Emmanuel MD Unavailable [phone] Audrey Waite PA-C Unavailable [phone] Encounter Details Date Type Department Care Team (Late st Contact Info) Description 11/16/2021 MyC Medical Advice [address] [address] Diana Desir, [facility] [address] [place] [address] Social History Tobacco Use Types Packs/Day Years [...] How often do you attend synagogue or congregation serv ices? Never 09/22/2021 Do [...] Answer Date Recorded PHQ-2 Score 2 09/22/2021 [facility] - Occupational [...] in a mcfp (including now)? No 09/22/2021 [place] Depression Scale Answer Date Recorded [place] Depression Score 5 01/14/2021 Last EPDS Self [...] Description 03/26/2024 11:20 AM CDT Office Visit [facility] Spine and Neurosurgery [address] [facility] [address] [place] [address] Ebony Cid, [facility] 500 [place] [address] 03/27/2024 11:00 AM CDT Office Visit [facility] [place] [address] [facility] [address] [place] [phone] Jelena David, [place] [address] [facility] [place] [address] 04/19/2024 2:45 PM CDT Office Visit [facility] 830 [place] [phone] Audrey Waite PA-C 420 [facility] [address], [facility] 603 [place], [place] [address] 05/08/2024 1:30 PM CDT Office Visit M [facility] [address] [place] [address] Lauren Claudio PA-C [address] [place] [address] Esha Grimm PA-C [address] [place] [address] 06/21/2024 2:00 PM VEGETABLE COOK Office Visit [facility] Neurology [facility] [address] [place] [address], [address] [place] [phone] [place] [address] [place] [address] Johnny Penn MD 6545 [place] [address] Scheduled Procedures Name Priority Associated [...] Out COVID-19 05/17/2022 05/17/2022 05/17/2022 10:20 PM VEGETABLE COOK Rule Out COVID-19 06/09/2022 06/09/2022 06/09/2022 9:35 AM VEGETABLE COOK COVID-19 06/09/2022 06/09/2022 06/30/2022 11:4 1 PM VEGETABLE COOK Rule Out COVID-19 11/10/2022 11/10/2022 11/11/2022 12:17 PM CDT Rule Out COVID-19 03/07/2023 03/07/2023 03/07/2023 1:20 PM CDT Rule Out COVID-19 12/26/2023 12/26/2023 12/26/2023 9:50 AM CDT Assessment Noted Time PHQ-9 Depression Total Score: 2 04/02/20 10:19 AM CDT documented as of this encounter Care Teams Frame Wirer Relationship Specialty Start Date End Date Marija Edgar APRN CLINICAL STUDIES SPECIALIST PCP - General Nurse Practitioner 04/30/20 04/14/23 Esha Grimm PA-C [address] [place] [address] PCP - General Family Medicine 05/04/23 Lita Oseguera Personal Advocate & Liaison (PAL) 02/28/20 03/27/23 Marija Edgar APRN CLINICAL STUDIES SPECIALIST Assigned PCP 06/08/20 04/29/23 Mynor Broussard MD [address] [address] Assigned Surgical Provider 06/01/20 11/28/21 Keisha Dotson MD 909 [place], [place] [address] Assigned Neuroscience Provider 06/04/20 04/01/23 Galo Burrell MD Assigned Heart and Vascular Provider 10/05/20 04/02/22 Diana Desir, [facility] 30[address] [place] [address] Pharmacist Pharmacist 04/17/21 Rain Galaviz PA-C [address] [place] [address] [place] [address] Physician Funeral Home Location Manager Dermatology 04/28/21 Summer Lara MD [address] [place] [address] Assigned OBGYN Provider 05/31/21 2 Tavia Wyatt MD [address] [place] [address] [place] [address] Dermatology 07/14/21 Johnny Murillo MD [address] [place] [address] Assigned Musculoskeletal Provider 08/30/21 03/17/22 Erica Farrell APRN CLINICAL STUDIES SPECIALIST 6[address] [facility] [address] [place] [address] Nurse Practitioner Cardiovascular Disease 09/09/21 Tavia Wyatt MD Assigned Surgical Provider 11/29/21 05/07/22 [facility] 3033 [place] [address] Assigned MTM Pharmacist 01/02/22 Rich Barrett MD 516 [facility] [address] [place] [address] Physician Ophthalmology 01/21/22 Neil [place] MD 500 [place] [address] Dermatology 02/24/22 Roney Story DPM [address] [facility] [address] [place] [address] Assigned Musculoskeletal Provider 03/20/22 08/13/22 Erica Farrell APRN CLINICAL STUDIES SPECIALIST 1700 [place] [address] Assigned Heart and Vascular Provider 04/03/22 04/16/22 Diana Desir, [facility] [address] [place], [place] 025626 Assigned MTM Pharmacist 04/07/22 Jelena David OD [address] [facility] [place] [address] Assigned Surgical Provider 05/08/22 10/08/22 Galo Burrell MD Assigned Heart and Vascular Provider 04/17/22 06/11/22 Livan Sharif MD [address] [place] [address] Cardiovascular Disease 05/14/22 Livan Sharif MD [address] [place] [address] Assigned Heart and Vascular Provider 06/12/22 07/23/22 Catherine Cm MD [address] [place] [address] Cardiovascular Disease 07/21/22 Valery Veronica, PA-C [address] [place] [address] Physician Funeral Home Location Manager Dermatology 07/21/22 Catherine Cm MD [address] [address] Assigned Heart and Vascular Provider 07/24/22 11/05/22 Johnny Murillo MD [address] [place] [address] Assigned Musculoskeletal Provider 08/14/22 10/08/22 Brea Quinn APRN CLINICAL STUDIES SPECIALIST [address] [place] [address] Nurse Practitioner Dermatology 09/21/22 Brea Quinn APRN CLINICAL STUDIES SPECIALIST [address] [place] [address] Assigned Surgical Provider 10/09/22 [place] [address] [address] Assigned Musculoskeletal Provider 10/09/22 Livan Sharif MD [address] [address] Assigned Heart and Vascular Provider 11/06/22 11/12/22 Catherine Cm MD [address] [place] [address] Assigned Heart and Vascular Provider 11/13/22 05/27/23 Sydnie Martinez RN Personal Advocate & Liaison (PAL) Family Medicine 03/28/23 07/31/23 Alfonso Renteria MD [address] [facility] [address] 200 [place] [address] Assigned Neuroscience Provider 04/02/23 Cheng Todd PA-C [address] [place] [id number] Assigned PCP 04/30/23 07/15/23 Radha Lomeli APRN CLINICAL STUDIES SPECIALIST [address] [place] [address] Assigned Heart and Vascular Provider 05/28/23 Jelena David OD [address] [facility] [address] Ophthalmology 06/15/23 Pao Joseph RN Personal Advocate & Liaison (PAL) Nurse 08/01/23 11/07/23 Esha Grimm PA-C [address] [place] [address] Assigned PCP 07/16/23 Valery Veronica PA-C [address] [place] [address] Physician Funeral Home Location Manager Dermatology 09/19/23 Rey Tay MD [address] [place] [address] MD Gastroenterology 09/20/23 Rocky Zepeda DO 500 [place] [address] Physician Gastroenterology 09/20/23 Philip Dumont MD [address] [place] [address] Physician Ophthalmology 09/22/23 Meredith Carrera PA-C [address] [place] [address] 396255 Assigned Gastroenterology Provider 11/01/23 Neil [place] MD [address] [phone] Dermatology 11/02/23 [place] [address] [facility] [place], [place] 5244[address] Neurological Surgery 12/26/23 Audrey Waite PA-C 500 [place] [address] Physician Funeral Home Location Manager Dermatology 02/28/24 documented as of this encounter
--- OUTSIDE RECORDS SUMMARY | 2024-03-12 19:39 | XMS_ITS | Encounter Summary ---
Author Organization [facility] Address [address] [place] [address] Care Team Providers Care Microbiology Technician Name Role Phone Lita Oseguera Unavailable Unavailable Marija Edgar APRN BEVERAGE SPECIALIST Primary Care Provider U Marija Bella APRN BEVERAGE SPECIALIST Unavailable Unavail able Mynor Broussard MD Unavailable [phone] Keisha Dotson MD Unavailable Galo Burrell MD Unavailable Unavailable Diana Desir [facility] Unavailable [phone] Rain Galaviz PA-C Unavailable Summer Lara MD Unavailable [phone] Tavia Wyatt MD Unavailable Unavailable Johnny Murillo MD Unavailable Erica Farrell APRN BEVERAGE SPECIALIST Unavailable Tavia Wyatt MD Unavailable Unavailable Diana Desir [facility] Unavailable [phone] Rich Barrett MD Unavailable [phone] Neil [place] MD Unavailable Roney StoryM Unavailable [phone] Erica Farrell APRN BEVERAGE SPECIALIST Unavailable Diana Desir [facility] Unavailable [phone] Jelena David OD Unavailable Galo Burrell MD Unavailable Unavailable Livan Sharif MD Unavailable Livan Sharif MD Unavailable IsCatherine hobbs MD Unavailable + Valery Veronica PA-C Unavailable [phone] Catherine Cm MD Unavailable + Johnny Murillo MD Unavailable [phone] Brea Quinn SKIN CARE THERAPIST BEVERAGE SPECIALIST Unavailable [phone] Brea Quinn SKIN CARE THERAPIST BEVERAGE SPECIALIST Unavailable [phone] Jose Francisco Johnson MD Unavailable Livan Sharif MD Unavailable + IsCatherine hobbs MD Unavailable + Sydnie Martinez RN Unavailable Unavailable Alfonso Renteria MD Unavailable [phone] Esha Grimm PA-C Primary Care Provider Cheng Todd PA-C Unavailable Radha Lomeli APRN BEVERAGE SPECIALIST Unavailable [phone] Jelena David OD Unavailable [phone] Pao Joseph RN Unavailable Unavailable Esha Grimm PA-C Unavailable [phone] Valery Veronica PA-C Unavailable [phone] Rey Tay MD Unavailable Rocky Zepeda DO Unavailable Philip Dumont MD Unavailable [phone] Meredith Carrera PA-C Unavailable [phone] Neil [place] MD Unavailable Juan Pablo Emmanuel MD Unavailable Audrey Waite PA-C Unavailable [phone] Encounter Details Date Type Department Care Team (Late st Contact Info) Description 11/04/2021 MyC Medical Advice [address] [address] Diana Desir, [facility] [address] [place] [address] Social History Tobacco Use Types Packs/Day Years [...] How often do you attend cheondoism or hoahaoism serv ices? Never 09/22/2021 Do [...] Answer Date Recorded PHQ-2 Score 2 09/22/2021 [facility] - Occupational [...] in a detention (including now)? No 09/22/2021 [place] Depression Scale Answer Date Recorded [place] Depression Score 5 01/14/2021 Last EPDS Self [...] [facility] [address] [facility] [address] [place] [address] Ebony Cid, [facility] 500 [place] [address] 03/27/2024 11:00 AM CDT Office Visit [facility] [place] [address] [place] [phone] Jelena David, [place] 3[address] [facility] [place] [address] 04/19/2024 2:45 PM CDT Office Visit [facility] 830 [place] [address] Audrey Waite PA-C 420 [facility] [address], [facility] 603 [place], [place] [address]23[address] 05/08/2024 1:30 PM CDT Office Visit M [facility] [address] [place] [address] Lauren Claudio PA-C [address] [place] [address] Esha Grimm PA-C [address] [place] [address] 06/21/2024 2:00 PM COTTON AGENT Office Visit [facility] Neurology [facility] [address] [place] [address], [address] [place] [address] [place] [address] [place] [address] Johnny Penn MD 6545 [place] [address] Scheduled Procedures Name Priority Associated Diagnoses Date/Ti la ESOPHAGOGASTRODUODENOSCOPY Eosinophilic esophagitis Esophageal dysphagia documented as of this encounter Visit Diagnoses Not on filedocumented in this encounter Additional Health Concerns Infection Onset Date Last Indicated Resolved Time Rule Out COVID-19 12/18/2021 12/18/2021 12/19/2021 11:34 AM CDT Rule Out COVID-19 02/24/2022 02/24/2022 02/25/2022 1:08 PM CDT Rule Out COVID-19 04/26/2022 04/26/2022 04/26/2022 6:47 AM CDT Rule Out COVID-19 05/17/2022 05/17/2022 05/17/2022 10:20 PM COTTON AGENT Rule Out COVID-19 06/09/2022 06/09/2022 06/09/2022 9:35 AM COTTON AGENT COVID-19 06/09/2022 06/09/2022 06/30/2022 11:4 1 PM COTTON AGENT Rule Out COVID-19 11/10/2022 11/10/2022 11/11/2022 12:17 PM CDT Rule Out COVID-19 03/07/2023 03/07/2023 03/07/2023 1:20 PM CDT Rule Out COVID-19 12/26/2023 12/26/2023 12/26/2023 9:50 AM CDT Assessment Noted Time PHQ-9 Depression Total Score: 2 04/02/20 10:19 AM CDT documented as of this encounter Care Teams Microbiology Technician Relationship Specialty Start Date End Date Marija Edgar APRN BEVERAGE SPECIALIST PCP - General Nurse Practitioner 04/30/20 04/14/23 Esha Grimm PA-C [address] [place] [address] PCP - General Family Medicine 05/04/23 Lita Oseguera Personal Advocate & Liaison (PAL) 02/28/20 03/27/23 Marija Edgar APRN BEVERAGE SPECIALIST Assigned PCP 06/08/20 04/29/23 Mynor Broussard MD [address] [address] Assigned Surgical Provider 06/01/20 11/28/21 Keisha Dotson MD 909 [place], [place] [address] Assigned Neuroscience Provider 06/04/20 04/01/23 Galo Burrell MD Assigned Heart and Vascular Provider 10/05/20 04/02/22 Diana Desir, [facility] 3033 [place] [address] Pharmacist Pharmacist 04/17/21 Rain Galaviz PA-C [address] [place] [address] [place] [address] Physician Pulp Grinder And Blender Dermatology 04/28/21 Summer Lara MD [address] [place] [address] Assigned OBGYN Provider 05/31/21 2 Tavia Wyatt MD [address] [place] [address] [place] [address] Dermatology 07/14/21 Johnny Murillo MD [address] [place] [address] Assigned Musculoskeletal Provider 08/30/21 03/17/22 Erica Farrell APRN BEVERAGE SPECIALIST 6405 [facility] [address] [place] [address] Nurse Practitioner Cardiovascular Disease 09/09/21 Tavia Wyatt MD Assigned Surgical Provider 11/29/21 05/07/22 [facility] 30[address] [place] [address] Assigned MTM Pharmacist 01/02/22 Rich Barrett MD 516 [facility] [address] [place] [address] Physician Ophthalmology 01/21/22 Neil [place] MD 500 [place] [address] Dermatology 02/24/22 Roney Story DPM [address] [facility] [address] [place] [address] Assigned Musculoskeletal Provider 03/20/22 08/13/22 Erica Farrell APRN BEVERAGE SPECIALIST 1700 [place] [address] Assigned Heart and Vascular Provider 04/03/22 04/16/22 Diana Desir, [facility] [address] [place], [place] 7825[address] Assigned MTM Pharmacist 04/07/22 Jelena David OD [address] [facility] [place] [address] Assigned Surgical Provider 05/08/22 10/08/22 Galo Burrell MD Assigned Heart and Vascular Provider 04/17/22 06/11/22 Livan Sharif MD [address] [place] [address] Cardiovascular Disease 05/14/22 Livan Sharif MD [address] [place] [address] Assigned Heart and Vascular Provider 06/12/22 07/23/22 Catherine Cm MD [address] [place] [address] Cardiovascular Disease 07/21/22 Valery Veronica, PA-C [address] [place] [address] Physician Pulp Grinder And Blender Dermatology 07/21/22 Catherine Cm MD [address] [address] Assigned Heart and Vascular Provider 07/24/22 11/05/22 Johnny Murillo MD [address] [place] [address] Assigned Musculoskeletal Provider 08/14/22 10/08/22 Brea Quinn APRN BEVERAGE SPECIALIST [address] [place] [address] Nurse Practitioner Dermatology 09/21/22 Brea Quinn APRN BEVERAGE SPECIALIST [address] [place] [address] Assigned Surgical Provider 10/09/22 [place] [address] [address] Assigned Musculoskeletal Provider 10/09/22 Livan Sharif MD [address] [address] Assigned Heart and Vascular Provider 11/06/22 11/12/22 Cathreine Cm MD [address] [place] [address] Assigned Heart and Vascular Provider 11/13/22 05/27/23 Sydnie Martinez RN Personal Advocate & Liaison (PAL) Family Medicine 03/28/23 07/31/23 Alfonso Renteria MD 57[address] [facility] [address] [place] [address] Assigned Neuroscience Provider 04/02/23 Cheng Todd PA-C [address] [place] [address] [id number] Assigned PCP 04/30/23 07/15/23 Radha Lomeli APRN BEVERAGE SPECIALIST [address] [place] [address] Assigned Heart and Vascular Provider 05/28/23 Jelena David OD [address] [facility] [place] [address] Ophthalmology 06/15/23 Pao Joseph RN Personal Advocate & Liaison (PAL) Nurse 08/01/23 11/07/23 Esha Grimm PA-C [address] [place] [address] Assigned PCP 07/16/23 Valery Veronica PA-C [address] [place] [address] Physician Pulp Grinder And Blender Dermatology 09/19/23 Rey Tay MD [address] [place] [address] MD Gastroenterology 09/20/23 Rocky Zepeda DO 500 [place] [address] Physician Gastroenterology 09/20/23 Philip Dumont MD [address] [place] [address] Physician Ophthalmology 09/22/23 Meredith Carrera PA-C [address] [place] [address] 241595 Assigned Gastroenterology Provider 11/01/23 Neil Kent MD [address] 829820 Dermatology 11/02/23 [place] [address] [facility] [place], [place] 8[address] Neurological Surgery 12/26/23 Audrey Waite PA-C 500 [place] [address] Physician Pulp Grinder And Blender Dermatology 02/28/24 documented as of this encounter
--- OUTSIDE RECORDS SUMMARY | 2024-03-12 19:39 | XMS_ITS | Encounter Summary ---
Author Organization [facility] Address [address] [place] [address] Care Team Providers Care Director E Learning Name Role Phone Lita Oseguera Unavailable Unavailable Marija Edgar APRN SUPERVISORY HISTORIAN Primary Care Provider U Marija Bella APRN SUPERVISORY HISTORIAN Unavailable Unavail able Keisha Dotson MD Unavailable Galo Burrell MD Unavailable Unavailable Diana Desir [facility] Unavailable Rain Galaviz PA-C Unavailable [phone] Summer Lara MD Unavailable [phone] Tavia Wyatt MD Unavailable Unavailable Johnny Murillo MD Unavailable Erica Farrell APRN SUPERVISORY HISTORIAN Unavailable Tavia Wyatt MD Unavailable Unavailable Diana Desir [facility] Unavailable Rich Barrett MD Unavailable [phone] Neil Kent MD Unavailable Roney Story DPM Unavailable [phone] Erica Farrell CREATIVE COORDINATOR SUPERVISORY HISTORIAN Unavailable Diana Desir [facility] Unavailable [phone] Frankie, Jelena Radha OD Unavailable Galo Burrell MD Unavailable Unavailable Livan Sharif MD Unavailable + Livan Sharif MD Unavailable + IsCatherine hobbs MD Unavailable + Valery Veronica PA-C Unavailable [phone] Catherine Cm MD Unavailable + Johnny Murillo MD Unavailable [phone] Brea Quinn CREATIVE COORDINATOR SUPERVISORY HISTORIAN Unavailable [phone] Brea Quinn CREATIVE COORDINATOR SUPERVISORY HISTORIAN Unavailable [phone] Jose Francisco Johnson MD Unavailable Livan Sharif MD Unavailable + Catherine Cm MD Unavailable + Sydnie Martinez RN Unavailable Unavailable Alfonso Renteria MD Unavailable Esha Grimm PA-C Primary Care Provider Cheng Todd PA-C Unavailable Radha Lomeli CREATIVE COORDINATOR SUPERVISORY HISTORIAN Unavailable [phone] Jelena David OD Unavailable [phone] Pao Joseph RN Unavailable Unavailable Esha Grimm PA-C Unavailable [phone] Valery Veronica PA-C Unavailable [phone] Rey Tay MD Unavailable Rocky Zepeda DO Unavailable Philip Dumont MD Unavailable [phone] Meredith Carrera PA-C Unavailable [phone] Neil Kent MD Unavailable Juan Pablo Emmanuel MD Unavailable Audrey Waite PA-C Unavailable [phone] Encounter Details Date Type Department Care Team (Late st Contact Info) Description 12/03/2021 MyC Medical Advice [facility] [address], [address] [place] [address] Keisha Dotson MD [address] [place] [address] [id number] Social History Tobacco Use Types Packs/Day Years [...] How often do you attend hindu or anabaptism serv ices? Never 09/22/2021 Do [...] Answer Date Recorded PHQ-2 Score 2 09/22/2021 [facility] of Occupat ional [facility] - Occupational Stress [...] in a snf (including now)? No 09/22/2021 [place] Depression Scale Answer Date Recorded [...] [facility] Spine and Neurosurgery [address] [facility] 100 [place] [address] Ebony Cid, ARLENE SUPERVISORY HISTORIAN 500 [place], [place] [address] 03/27/2024 11:00 AM CDT Office Visit [facility] [address] [facility] [address] [place] [phone] Jelena David, SONJA [address] [facility] [place] [address] 04/19/2024 2:45 PM CDT Office Visit [facility] 830 [place] [phone] Audrey Waite PA-C [address] [facility] [address], [facility] 603 [place], [place] [address] 05/08/2024 1:30 PM CDT Office Visit [facility] [address] [place] [address] Lauren Claudio PA-C [address] [place] [address] Esha Grimm PA-C [address] [place] [address] 06/21/2024 2:00 PM MANAGER FREELANCE Office Visit [facility] Neurology [address], [address] [place] [phone] [place] [address] [place] [address] Johnny Penn MD 6545 [place] [address] Scheduled Procedures Name Priority Associated [...] COVID-19 05/17/2022 05/17/2022 05/17/2022 10:20 PM MANAGER FREELANCE Rule Out COVID-19 06/09/2022 06/09/2022 06/09/2022 9:35 AM MANAGER FREELANCE COVID-19 06/09/2022 06/09/2022 06/30/2022 11:4 1 PM MANAGER FREELANCE Rule Out COVID-19 11/10/2022 11/10/2022 11/11/2022 12:17 PM CDT Rule Out COVID-19 03/07/2023 03/07/2023 03/07/2023 1:20 PM CDT Rule Out COVID-19 12/26/2023 12/26/2023 12/26/2023 9:50 AM CDT Assessment Noted Time PHQ-9 Depression Total Score: 2 04/02/20 10:19 AM CDT documented as of this encounter Care Teams Director E Learning Relationship Specialty Start Date End Date Marija Edgar APRN SUPERVISORY HISTORIAN PCP - General Nurse Practitioner 04/30/20 04/14/23 Esha Grimm PA-C [address] [place] [address] PCP - General Family Medicine 05/04/23 Lita Oseguera Personal Advocate & Liaison (PAL) 02/28/20 03/27/23 Marija Edgar APRN SUPERVISORY HISTORIAN Assigned PCP 06/08/20 04/29/23 Keisha Dotson MD 909 [place] [address] Assigned Neuroscience Provider 06/04/20 04/01/23 Galo Burrell MD Assigned Heart and Vascular Provider 10/05/20 04/02/22 Diana Desir [facility] [address] [place], [place] [phone] Pharmacist Pharmacist 04/17/21 Rain Galaviz PA-C [address] [place] [address] DR [facility] [facility] [phone] Physician Food Writer Dermatology 04/28/21 Summer Lara MD [address] [place], [place] 9966[address] Assigned OBGYN Provider 05/31/21 Tavia Wyatt MD [address] [place] [address] Dermatology 07/14/21 Johnny Murillo MD [address] [place] [address] Assigned Musculoskeletal Provider 08/30/21 03/17/22 Erica Farrell APRN SUPERVISORY HISTORIAN [address] [facility] [address] [place], [place] 408895 Nurse Practitioner Cardiovascular Disease 09/09/21 Tavia Wyatt MD Assigned Surgical Provider 11/29/21 05/07/22 [facility] 3033 [place] [address] Assigned MTM Pharmacist 01/02/22 Rich Barrett MD [address] [id number] Physician Ophthalmology 01/21/22 Neil Kent MD [address] [place] [address] 158945 Dermatology 02/24/[address] [place] [place] [address] [facility] 300 [place] [address] Assigned Musculoskeletal Provider 03/20/22 08/13/22 Erica Farerll APRN SUPERVISORY HISTORIAN 1700 [place] [address] Assigned Heart and Vascular Provider 04/03/22 04/16/22 [facility] 3033 [place] [address] Assigned MTM Pharmacist 04/07/22 [place] [address] [place] [address] Assigned Surgical Provider 05/08/22 10/08/22 Galo Burrell MD Assigned Heart and Vascular Provider 04/17/22 06/11/22 Livan Sharif MD [address] [place] [address] Cardiovascular Disease 05/14/22 Livan Sharif MD [address] [place] [address] Assigned Heart and Vascular Provider 06/12/22 07/23/22 Catherine Cm MD [address] [place] 254835 Cardiovascular Disease 07/21/22 Valery Veronica, PAUcheC 909 [place] [address] Physician Food Writer Dermatology 07/21/22 Catherine Cm MD [address] [place] [address] [place] [address] Assigned Heart and Vascular Provider 07/24/22 11/05/22 Johnny Murillo MD [address] [place] [address] 425804 Assigned Musculoskeletal Provider 08/14/22 10/08/22 Brea Quinn APRN SUPERVISORY HISTORIAN [address] [place] [address] 278525 Nurse Practitioner Dermatology 09/21/22 Brea Quinn APRN SUPERVISORY HISTORIAN [address] [place] [address] [place] 527012 Assigned Surgical Provider 10/09/22 [place] [address] [address] Assigned Musculoskeletal Provider 10/09/22 Livan Sharif MD [address] [place] [address] [place] [address] Assigned Heart and Vascular Provider 11/06/22 11/12/22 Catherine Cm MD [address] [place] [address] [place] 057485 Assigned Heart and Vascular Provider 11/13/22 05/27/23 Sydnie Martinez RN Personal Advocate & Liaison (PAL) Family Medicine 03/28/23 07/31/23 Alfonso Renteria MD 5775 [facility] [address] 200 [place] [address] Assigned Neuroscience Provider 04/02/23 Cheng Todd PA-C [address] [place] [address] Assigned PCP 04/30/23 07/15/23 Radha Lomeli, ARLENE SUPERVISORY HISTORIAN [address] [facility] [address] [place] [address] Assigned Heart and Vascular Provider 05/28/23 [place] [address] [place] [address] MD Ophthalmology 06/15/23 Pao Joseph, VJ Personal Advocate & Liaison (PAL) Nurse 08/01/23 11/07/23 Esha Grimm PA-C [address] [place] [address] Assigned PCP 07/16/23 Valery Veronica PA-C [address] [place] [address] Physician Food Writer Dermatology 09/19/23 Rey Tay MD [address] [place] [address] 735235 Gastroenterology 09/20/23 Rocky Zepeda DO [address] [place] [address] 793565 Physician Gastroenterology 09/20/23 Philip Dumont MD 516 [place] [address] Physician Ophthalmology 09/22/23 Meredith Carrera PA-C [address] [place] [address] 227925 Assigned Gastroenterology Provider 11/01/23 Neil Kent MD [address] [place] [address] 571830 MD Dermatology 11/02/23 [place] [address] [place], [place] 392987 Neurological Surgery 12/26/23 Audrey Waite PA-C 500 [place], [place] 968195 Physician Food Writer Dermatology 02/28/24 documented as of this encounter
--- OUTSIDE RECORDS SUMMARY | 2024-03-12 19:39 | XMS_ITS | Encounter Summary ---
Author Organization [facility] Address [address] [place] [address] Care Team Providers Care Metal Machine Setter Name Role Phone Lita Oseguera Unavailable Unavailable Marija Edgar APRN MICROSOFT APPLICATION DEVELOPER Primary Care Provider U Marija Bella APRN MICROSOFT APPLICATION DEVELOPER Unavailable Unavail able Keisha Dotson MD Unavailable [phone] Diana Desir [facility] Unavailable [phone] Rain Galaviz PA-C Unavailable Tavia Wyatt MD Unavailable Unavailable Erica Farrell HOUSEKEEPER AND LAUNDRY ASSISTANT MICROSOFT APPLICATION DEVELOPER Unavailable Tavia Wyatt MD Unavailable Unavailable Rich Barrett MD Unavailable [phone] Neil Kent MD Unavailable Roney Story DPM Unavailable [phone] Erica Farrell HOUSEKEEPER AND LAUNDRY ASSISTANT MICROSOFT APPLICATION DEVELOPER Unavailable Diana Desir [facility] Unavailable [phone] Jelena David OD Unavailable Galo Burrell MD Unavailable Unavailable Livan Sharif MD Unavailable Livna Sharif MD Unavailable Catherine Cm MD Unavailable + Valery Veronica PA-C Unavailable [phone] Catherine Cm MD Unavailable + Johnny Murillo MD Unavailable [phone] Brea Quinn HOUSEKEEPER AND LAUNDRY ASSISTANT MICROSOFT APPLICATION DEVELOPER Unavailable [phone] Brea Quinn HOUSEKEEPER AND LAUNDRY ASSISTANT MICROSOFT APPLICATION DEVELOPER Unavailable [phone] Jose Francisco Johnson MD Unavailable Livan Sharif MD Unavailable Catherine Cm MD Unavailable + Sydnie Martinez RN Unavailable Unavailable Alfonso Renteria MD Unavailable Esha Grimm PA-C Primary Care Provider Cheng Todd PA-C Unavailable Radha Lomeli HOUSEKEEPER AND LAUNDRY ASSISTANT MICROSOFT APPLICATION DEVELOPER Unavailable Jelena David OD Unavailable Pao Joseph RN Unavailable Unavailable Esha Grimm PA-C Unavailable [phone] Valery Veronica PA-C Unavailable Rey Tay MD Unavailable Rocky Zepeda DO Unavailable Philip Dumont MD Unavailable [phone] Meredith Carrera PA-C Unavailable Neil Kent MD Unavailable Juan Pablo Emmanuel MD Unavailable Audrey Waite PA-C Unavailable [phone] Encounter Details Date Type Department Care Team (Late st Contact Info) Description 04/07/2022 MyC Medical Advice [facility] [address] [place] [address] Diana Desir, [facility] 3033 [place] [address] Social History Tobacco Use Types Packs/Day Years [...] How often do you attend temple or church serv ices? Never 09/22/2021 Do you belong [...] Recorded PHQ-2 Score 2 12/18/2021 [facility] of Occupat ional [facility] - Occupational Stress Questionnaire Answer [...] in a mcfp (including now)? No 09/22/2021 [place] Depression Scale Answer Date Recorded [place] Depression Score 5 01/14/2021 Last EPDS Self [...] [facility] Spine and Neurosurgery 1747 [facility] 100 [place] [address] Ebony Cid, HOUSEKEEPER AND LAUNDRY ASSISTANT [facility] 500 [place], [place] [address]245 03/27/2024 11:00 AM CDT Office Visit [facility] [address] [facility] [address] [place] [phone] Jelena David, [address] [facility] [place] [address] 04/19/2024 2:45 PM CDT Office Visit [facility] 830 [place] [address] Audrey Waite PA-C 420 [facility] [address], [facility] 603 [address] 05/08/2024 1:30 PM CDT Office Visit [facility] [address] [place] [phone] Lauren Claudio PA-C [address] [place], [place] [phone] Esha Grimm PA-C [address] [place] [address] 06/21/2024 2:00 PM GEAR TESTER Office Visit [facility] Neurology [facility] [address] [facility], [address] [place] [address] [place] [address] [place] [address] Johnny Pnen MD [address] [facility] [place] [address] Scheduled Procedures Name Priority Associated Diagnoses Date/Ti pr ESOPHAGOGASTRODUODENOSCOPY Eosinophilic esophagitis Esophageal dysphagia documented as of this encounter Visit Diagnoses Not on filedocumented in this encounter Additional Health Concerns Infection Onset Date Last Indicated Resolved Time Rule Out COVID-19 04/26/2022 04/26/2022 04/26/2022 6:47 AM CDT Rule Out COVID-19 05/17/2022 05/17/2022 05/17/2022 10:20 PM GEAR TESTER Rule Out COVID-19 06/09/2022 06/09/2022 06/09/2022 9:35 AM GEAR TESTER COVID-19 06/09/2022 06/09/2022 06/30/2022 11:4 1 PM GEAR TESTER Rule Out COVID-19 11/10/2022 11/10/2022 11/11/2022 12:17 PM CDT Rule Out COVID-19 03/07/2023 03/07/2023 03/07/2023 1:20 PM CDT Rule Out COVID-19 12/26/2023 12/26/2023 12/26/2023 9:50 AM CDT Assessment Noted Time PHQ-9 Depression Total Score: 2 12/19/19 2:50 PM CDT documented as of this encounter Care Teams Metal Machine Setter Relationship Specialty Start Date End Date Marija Edgar APRN MICROSOFT APPLICATION DEVELOPER PCP - General Nurse Practitioner 04/30/20 04/14/23 Esha Grimm PA-C [address] [place] [address] PCP - General Family Medicine 05/04/23 Lita Oseguera Personal Advocate & Liaison (PAL) 02/28/20 03/27/23 Marija Edgar APRN MICROSOFT APPLICATION DEVELOPER Assigned PCP 06/08/20 04/29/23 Keisha Dotson MD 909 [place] [address] Assigned Neuroscience Provider 06/04/20 04/01/23 [facility] 3033 [place] [address] Pharmacist Pharmacist 04/17/21 Rain Galaviz PA-C [address] [place] [address] [address] [place] [address] Physician Single Stayer Operator Dermatology 04/28/21 Tavia Wyatt MD [address] [place] [address] [address] [place] [address] Dermatology 07/14/21 Erica Farrell APRN MICROSOFT APPLICATION DEVELOPER [address] [place] [address] Nurse Practitioner Cardiovascular Disease 09/09/21 Tavia Wyatt MD Assigned Surgical Provider 11/29/21 05/07/22 Rich Barrett MD 516 [facility] 9A [phone] Physician Ophthalmology 01/21/22 Neil Kent MD 500 [place] [address] Dermatology 02/24/22 Roney Story DPM [address] [facility] [address] [place] [address] Assigned Musculoskeletal Provider 03/20/22 08/13/22 Erica Farrell APRN MICROSOFT APPLICATION DEVELOPER 1700 [place] [address] Assigned Heart and Vascular Provider 04/03/22 04/16/22 Diana Desir, [facility] 3033 [place], [place] 3[address] Assigned MTM Pharmacist 04/07/22 Jelena David OD [address] [facility] [place] [address] Assigned Surgical Provider 05/08/22 10/08/22 Galo Burrell MD Assigned Heart and Vascular Provider 04/17/22 06/11/22 Livan Sharif MD [address] [place] 410335 Cardiovascular Disease 05/14/22 Livan Sharif MD [address] [place] 094335 Assigned Heart and Vascular Provider 06/12/22 07/23/22 Catherine Cm MD [address] [address] Cardiovascular Disease 07/21/22 Valery Veronica, PA-C [address] [place] [address] Physician Single Stayer Operator Dermatology 07/21/22 Catherine Cm MD [address] [address] Assigned Heart and Vascular Provider 07/24/22 11/05/22 Johnny Murillo MD [address] [place] [address] Assigned Musculoskeletal Provider 08/14/22 10/08/22 Brea Quinn APRN MICROSOFT APPLICATION DEVELOPER [address] [place] [address] 225425 Nurse Practitioner Dermatology 09/21/22 Brea Quinn APRN MICROSOFT APPLICATION DEVELOPER [address] [place] [address] Assigned Surgical Provider 10/09/22 [place] [address] [place] [address] Assigned Musculoskeletal Provider 10/09/22 Livan Sharif MD [address] [address] Assigned Heart and Vascular Provider 11/06/22 11/12/22 Catherine Cm MD [address] [facility] [address] [place] [address] Assigned Heart and Vascular Provider 11/13/22 05/27/23 Sydnie Martinez, RN Personal Advocate & Liaison (PAL) Family Medicine 03/28/23 07/31/23 Alfonso Renteria MD [address] [facility] 200 [place] [address] Assigned Neuroscience Provider 04/02/23 Cheng Todd PA-C [address] [place] [address] [id number] Assigned PCP 04/30/23 07/15/23 Radha Lomeli APRN MICROSOFT APPLICATION DEVELOPER [address] [place] [address] Assigned Heart and Vascular Provider 05/28/23 Jelena David OD [address] [facility] [place] [address] Ophthalmology 06/15/23 Pao Joseph, VJ Personal Advocate & Liaison (PAL) Nurse 08/01/23 11/07/23 Esha Grimm PA-C [address] [place] [address] Assigned PCP 07/16/23 Valery Veronica PA-C [address] [place] [address] Physician Single Stayer Operator Dermatology 09/19/23 Rey Tay MD 9 [place] [address] MD Gastroenterology 09/20/23 Rocky Zepeda DO [address] [place] [address] Physician Gastroenterology 09/20/23 Philip Dumont MD [address] [place] [address] Physician Ophthalmology 09/22/23 Meredith Carrera PA-C [address] [place] [address] Assigned Gastroenterology Provider 11/01/23 Neil Kent MD [address] [address] Dermatology 11/02/23 [place] [address] [place], [place] [address] Neurological Surgery 12/26/23 Audrey Waite PA-C 500 [place] [address] Physician Single Stayer Operator Dermatology 02/28/24 documented as of this encounter
--- OUTSIDE RECORDS SUMMARY | 2024-03-12 19:39 | XMS_ITS | Encounter Summary ---
Author Organization [facility] Address [address] [place] [address] Care Team Providers Care Ivf Embryologist Name Role Phone Lita Oseguera Unavailable Unavailable Marija Edgar APRN CHAPLAIN Primary Care Provider U Marija Bella APRN CHAPLAIN Unavailable Unavail able Keisha Dotson MD Unavailable [phone] Galo Burrell MD Unavailable Unavailable Diana Desir [facility] Unavailable Rain Galaviz PA-C Unavailable Summer Lara MD Unavailable [phone] Tavia Wyatt MD Unavailable Unavailable Johnny Murillo MD Unavailable Erica Farrell APRN CHAPLAIN Unavailable Tavia Wyatt MD Unavailable Unavailable Diana Desir [facility] Unavailable Rich Barrett MD Unavailable [phone] Neil Kent MD Unavailable Roney Story DPM Unavailable [phone] Erica Farrell CARDIOLOGY NURSE PRACTITIONER CHAPLAIN Unavailable Diana Desir [facility] Unavailable [phone] Frankie, Jelena Radha OD Unavailable Galo Burrell MD Unavailable Unavailable Livan Sharif MD Unavailable + Livan Sharif MD Unavailable + IsCatherine hobbs MD Unavailable + Valery Veronica PA-C Unavailable [phone] Catherine Cm MD Unavailable + Johnny Murillo MD Unavailable [phone] Brea Quinn CARDIOLOGY NURSE PRACTITIONER CHAPLAIN Unavailable [phone] Brea Quinn CARDIOLOGY NURSE PRACTITIONER CHAPLAIN Unavailable [phone] Jose Francisco Johnson MD Unavailable Livan Sharif MD Unavailable + Catherine Cm MD Unavailable + Sydnie Martinez RN Unavailable Unavailable Alfonso Renteria MD Unavailable Esha Grimm PA-C Primary Care Provider Cheng Todd PA-C Unavailable Radha Lomeli CARDIOLOGY NURSE PRACTITIONER CHAPLAIN Unavailable [phone] Jelena David OD Unavailable [phone] Pao Joseph RN Unavailable Unavailable Esha Grimm PA-C Unavailable [phone] Valery Veronica PA-C Unavailable [phone] Rey Tay MD Unavailable Rocky Zepeda DO Unavailable Philip Dumont MD Unavailable [phone] Meredith Carrera PA-C Unavailable [phone] Neil Kent MD Unavailable Juan Pablo Emmanuel MD Unavailable [phone] Audrey Waite PA-C Unavailable Encounter Details Date Type Department Care Team (Late st Contact Info) Description 03/09/2022 MyC Medical Advice [address] [address] Abby Dye Social History Tobacco [...] How often do you attend temple or roman catholic serv ices? Never 09/22/2021 [...] Answer Date Recorded PHQ-2 Score 2 12/18/2021 [facility] of Occupat [...] in a half-way (including now)? No 09/22/2021 [place] Depression Scale Answer Date Recorded [place] Depression Score 5 01/14/2021 Last EPDS Self [...] [facility] Spine and Neurosurgery 1747 [facility] 100 [place] [address] Ebony Cid, CARDIOLOGY NURSE PRACTITIONER CHAPLAIN 500 [place], [place] [address] 03/27/2024 11:00 AM CDT Office Visit [facility] [address] [facility] [address] [place] [phone] Jelena David, [address] [facility] [place] [address] 04/19/2024 2:45 PM CDT Office Visit [facility] 830 [place] [phone] Audrey Waite PA-C [address] [place] [address] [address]385, [facility] 603 [place] [address] 05/08/2024 1:30 PM CDT Office Visit [facility] [address] [place] [phone] Lauren Claudio PA-C [address] [place], [place] [phone] Esha Grimm PA-C [address] [place] [address] 06/21/2024 2:00 PM CLEANING ATTENDANT Office Visit [facility] [place] [address] [facility], [address] [place] [address] [place] [address] [place] [address] Johnny Penn MD 6545 [place] [address] Scheduled Procedures Name Priority Associated Diagnoses Date/Ti nj ESOPHAGOGASTRODUODENOSCOPY Eosinophilic esophagitis Esophageal dysphagia documented as of this encounter Visit Diagnoses Not on filedocumented in this encounter Additional Health Concerns Infection Onset Date Last Indicated Resolved Time Rule Out COVID-19 04/26/2022 04/26/2022 04/26/2022 6:47 AM CDT Rule Out COVID-19 05/17/2022 05/17/2022 05/17/2022 10:20 PM CLEANING ATTENDANT Rule Out COVID-19 06/09/2022 06/09/2022 06/09/2022 9:35 AM CLEANING ATTENDANT COVID-19 06/09/2022 06/09/2022 06/30/2022 11:4 1 PM CLEANING ATTENDANT Rule Out COVID-19 11/10/2022 11/10/2022 11/11/2022 12:17 PM CDT Rule Out COVID-19 03/07/2023 03/07/2023 03/07/2023 1:20 PM CDT Rule Out COVID-19 12/26/2023 12/26/202312/26/2023 9:50 AM CDT Assessment Noted Time PHQ-9 Depression Total Score: 2 12/19/19 2:50 PM CDT documented as of this encounter Care Teams Ivf Embryologist Relationship Specialty Start Date End Date Marija Edgar APRN CHAPLAIN PCP - General Nurse Practitioner 04/30/20 04/14/23 Esha Grimm PA-C [address] [place] [address] PCP - General Family Medicine 05/04/23 Lita Oseguera Personal Advocate & Liaison (PAL) 02/28/20 03/27/23 Marija Edgar APRN CHAPLAIN Assigned PCP 06/08/20 04/29/23 Keisha Dotson MD [address] [place], [place] [address] Assigned Neuroscience Provider 06/04/20 04/01/23 Galo Burrell MD Assigned Heart and Vascular Provider 10/05/20 04/02/22 Diana Desir, [facility] 3033 [place] [address] Pharmacist Pharmacist 04/17/21 Rain Galaviz PA-C [address] [place] [address] [place] [address] Physician Installation Technician Dermatology 04/28/21 Summer Lara MD [address], [place] [address] Assigned OBGYN Provider 05/31/21 2 Tavia Wyatt MD [address] [place] [address] Dermatology 07/14/21 Johnny Murillo MD [address] [place] [address] Assigned Musculoskeletal Provider 08/30/21 03/17/22 Erica Farrell APRN CHAPLAIN [address] [facility] [address] [place] [address] Nurse Practitioner Cardiovascular Disease 09/09/21 Tavia Wyatt MD Assigned Surgical Provider 11/29/21 05/07/22 Diana Desir, [facility] 30[address] [place] [address] Assigned MTM Pharmacist 01/02/22 Rich Barrett MD 516 [facility] [address] [place], [place] [address] Physician Ophthalmology 01/21/22 Neil Kent MD [address] [place] [address] Dermatology 02/24/22 R[place] DPM [address] [facility] [address] [place], [place] [address] Assigned Musculoskeletal Provider 03/20/22 08/13/22 Erica Farrell APRN CHAPLAIN 1700 [place] [address] Assigned Heart and Vascular Provider 04/03/22 04/16/22 Diana Desir, [facility] [address] [place], [place] 9[address] Assigned MTM Pharmacist 04/07/22 Jelena David OD [address] [facility] [place] [address] Assigned Surgical Provider 05/08/22 10/08/22 Galo Burrell MD Assigned Heart and Vascular Provider 04/17/22 06/11/22 Livan Sharif MD [address] [place] [address] Cardiovascular Disease 05/14/22 Livan Sharif MD [address] [place] [address] Assigned Heart and Vascular Provider 06/12/22 07/23/22 Catherine Cm MD [address] [place] [address] Cardiovascular Disease 07/21/22 Valery Veronica PA-C [address] [place], [place] [address] Physician Installation Technician Dermatology 07/21/22 Catherine Cm MD [address] [place] 427635 Assigned Heart and Vascular Provider 07/24/22 11/05/22 Johnny Murillo MD [address] [facility] [address] [place] [address] Assigned Musculoskeletal Provider 08/14/22 10/08/22 Brea Quinn APRN CHAPLAIN 500 [place] [address] Nurse Practitioner Dermatology 09/21/22 Brea Quinn APRN CHAPLAIN 6401 [place] [address] Assigned Surgical Provider 10/09/22 [place] [address] [address] Assigned Musculoskeletal Provider 10/09/22 Livan Sharif MD [address] [facility] [address] [place] [address] Assigned Heart and Vascular Provider 11/06/22 11/12/22 Catherine Cm MD [address] [facility] [address] [place], [place] 39[address] Assigned Heart and Vascular Provider 11/13/22 05/27/23 Sydnie Martinez RN Personal Advocate & Liaison (PAL) Family Medicine 03/28/23 07/31/23 Alfonso Renteria MD 5775 [facility] 200 [place] [address] Assigned Neuroscience Provider 04/02/23 Cheng Todd PA-C [address] [place] [id number] Assigned PCP 04/30/23 07/15/23 Radha Lomeli APRN CNP [address] [place] [address] Assigned Heart and Vascular Provider 05/28/23 Jelena David OD [address] [facility] [place] [address] MD Ophthalmology 06/15/23 Pao Joseph, RN Personal Advocate & Liaison (PAL) Nurse 08/01/23 11/07/23 Esha Grimm PA-C [address] [place] [phone] Assigned PCP 07/16/23 Valery Veronica PA-C [address] [place] [address] 421735 Physician Installation Technician Dermatology 09/19/23 Rey Tay MD [address] [place] [address] MD Gastroenterology 09/20/23 Rocky Zepeda DO [address] [place] [address] 314065 Physician Gastroenterology 09/20/23 Philip Dumont MD [address] [place] [address] 399725 Physician Ophthalmology 09/22/23 Meredith Carrera PA-C [address] [place] [address] 195145 Assigned Gastroenterology Provider 11/01/23 Neil Kent MD [address] [address] Dermatology 11/02/23 [place] [address] [address] Neurological Surgery 12/26/23 Audrey Waite, PA-C 500 [place], [place] [address]447[address] Physician Installation Technician Dermatology 02/28/24 documented as of this encounter
--- OUTSIDE RECORDS SUMMARY | 2024-03-12 19:39 | XMS_ITS | Encounter Summary ---
Author Organization [facility] Address [address] [place] [address] Care Team Providers Care Station Inspector Name Role Phone Lita Oseguera Unavailable Unavailable Marija Edgar APRN COURT COMMISSIONER Primary Care Provider U Marija Bella APRN COURT COMMISSIONER Unavailable Unavail able Keisha Dotson MD Unavailable [phone] Galo Burrell MD Unavailable Unavailable Diana Desir [facility] Unavailable Rain Galaviz PA-C Unavailable Summer Lara MD Unavailable [phone] Tavia Wyatt MD Unavailable Unavailable Johnny Murillo MD Unavailable Erica Farrell APRN COURT COMMISSIONER Unavailable Tavia Wyatt MD Unavailable Unavailable Diana Desir [facility] Unavailable Rich Barrett MD Unavailable [phone] Neil Kent MD Unavailable Roney Story DPM Unavailable [phone] Erica Farrell HUMAN PERFORMANCE TECHNOLOGIST COURT COMMISSIONER Unavailable Diana Desir [facility] Unavailable [phone] Frankie, Jelena Radha OD Unavailable Galo Burrell MD Unavailable Unavailable Livan Sharif MD Unavailable + Livan Sharif MD Unavailable + IsCatherine hobbs MD Unavailable + Valery Veronica PA-C Unavailable [phone] Catherine Cm MD Unavailable + Johnny Murillo MD Unavailable [phone] Brea Quinn HUMAN PERFORMANCE TECHNOLOGIST COURT COMMISSIONER Unavailable [phone] Brea Quinn HUMAN PERFORMANCE TECHNOLOGIST COURT COMMISSIONER Unavailable [phone] Jose Francisco Johnson MD Unavailable Livan Sharif MD Unavailable + Catherine Cm MD Unavailable + Sydnie Martinez RN Unavailable Unavailable Alfonso Renteria MD Unavailable Esha Grimm PA-C Primary Care Provider Cheng Todd PA-C Unavailable Radha Lomeli HUMAN PERFORMANCE TECHNOLOGIST COURT COMMISSIONER Unavailable [phone] Jelena David OD Unavailable [phone] Pao Joseph RN Unavailable Unavailable Esha Grimm PA-C Unavailable [phone] Valery Veronica PA-C Unavailable [phone] Rey Tay MD Unavailable Rocky Zepeda DO Unavailable Philip Dumont MD Unavailable [phone] Meredith Carrera PA-C Unavailable [phone] Neil Kent MD Unavailable Juan Pablo Emmanuel MD Unavailable Audrey Waite PA-C Unavailable [phone] Encounter Details Date Type Department Care Team (Late st Contact Info) Description 12/18/2021 Telephone [facility] [address] [place] [phone] Lauren Claudio PA-C [address] [place] [address] Social History Tobacco Use Types Packs/Day [...] How often do you attend sabianism or sikh serv ices? Never 09/22/2021 Do [...] Answer Date Recorded PHQ-2 Score 2 12/18/2021 [facility] of Occupat [...] in a fdc (including now)? No 09/22/2021 [place] Depression Scale Answer Date Recorded [place] Depression Score 5 01/14/2021 Last EPDS Self [...] be reached at: Home number on file [phone] (home) Best Time: ANYTIME Can we leave a detailed message on this number? YES Call taken on 12/18/2021 at 11:01 AM by Amalia Deluca documented in this encounter Plan of Treatment Upcoming Encounters Date Type Department Care Team (Late st Contact Info) Description 03/26/2024 11:20 AM CDT Office Visit [facility] Spine and Neurosurgery [address] [place] [phone] Ebony Cid, HUMAN PERFORMANCE TECHNOLOGIST [facility] 500 [place] [address] 03/27/2024 11:00 AM CDT Office Visit [facility] [address] [facility] [address] [place] [address] Jelena David Radha, [place] [address] [facility] [place] [address] 04/19/2024 2:45 PM CDT Office Visit [facility] 830 [place] [phone] Audrey Waite PA-C 420 [facility] [address], [facility] 603 [place], [place] [address] 05/08/2024 1:30 PM CDT Office Visit [facility] [address] [place] [phone] Lauren Claudio PA-C [address] [place], [place] [phone] Esha Grimm PA-C [address] [place] [address] 06/21/2024 2:00 PM INSTRUCTOR BALLROOM DANCING Office Visit [facility] Neurology [facility] [address] [place] [address], [address] [place] [phone] [place] [address] [place] [address] Johnny Penn MD 6556 [place], [place] [phone] Scheduled Procedures Name Priority Associated Diagnoses Date/Ti [...] Out COVID-19 05/17/2022 05/17/2022 05/17/2022 10:20 PM INSTRUCTOR BALLROOM DANCING Rule Out COVID-19 06/09/2022 06/09/2022 06/09/2022 9:35 AM INSTRUCTOR BALLROOM DANCING COVID-19 06/09/2022 06/09/2022 06/30/2022 11:4 1 PM INSTRUCTOR BALLROOM DANCING Rule Out COVID-19 11/10/2022 11/10/2022 11/11/2022 12:17 PM CDT Rule Out COVID-19 03/07/2023 03/07/2023 03/07/2023 1:20 PM CDT Rule Out COVID-19 12/26/2023 12/26/2023 12/26/2023 9:50 AM CDT Assessment Noted Time PHQ-9 Depression Total Score: 2 12/19/19 2:50 PM CDT documented as of this encounter Care Teams Station Inspector Relationship Specialty Start Date End Date Marija Edgar APRN COURT COMMISSIONER PCP - General Nurse Practitioner 04/30/20 04/14/23 Esha Grimm PA-C [address] [place] [address] PCP - General Family Medicine 05/04/23 Lita Oseguera Personal Advocate & Liaison (PAL) 02/28/20 03/27/[address] COMMISSIONER Assigned PCP 06/08/20 04/29/23 Keisha Dotson MD 909 [place] [address] Assigned Neuroscience Provider 06/04/20 04/01/23 Galo Burrell MD Assigned Heart and Vascular Provider 10/05/20 04/02/22 Diana Desir, [facility] [address] [place] [address] Pharmacist Pharmacist 04/17/21 Rain Galaviz PA-C [address] [place] [address] [place] [address] Physician Health And Safety Advisor Dermatology 04/28/21 Summer Lara MD [address] [place] [address] Assigned OBGYN Provider 05/31/21 2 Tavia Wyatt MD [address] [place] [address] Dermatology 07/14/21 Johnny Murillo MD [facility] [address] [address] Assigned Musculoskeletal Provider 08/30/21 03/17/[address] COMMISSIONER [address] [facility] [address] [place] [address] Nurse Practitioner Cardiovascular Disease 09/09/21 Tavia Wyatt MD Assigned Surgical Provider 11/29/21 05/07/22 Diana Desir, [facility] [address] [place] [address] Assigned MTM Pharmacist 01/02/22 Rich Barrett MD 516 [facility], [facility] 9A [place] [address] Physician Ophthalmology 01/21/22 Neil Kent MD 500 [place] [address] Dermatology 02/24/22 Roney Story DPM [address] [facility] [address] [place] [address] Assigned Musculoskeletal Provider 03/20/22 08/13/[address] COMMISSIONER 17[address] [place] [address] Assigned Heart and Vascular Provider 04/03/22 04/16/22 Diana Desir [facility] 3033 [place] [address] Assigned MTM Pharmacist 04/07/22 Jelena David OD [address] [place] [address] Assigned Surgical Provider 05/08/22 10/08/22 Galo Burrell MD Assigned Heart and Vascular Provider 04/17/22 06/11/22 Livan Sharif MD 6405 [facility] [address] , [facility] [address] [place] [address] Cardiovascular Disease 05/14/22 Livan Sharif MD [address], [facility] [place] [address] Assigned Heart and Vascular Provider 06/12/22 07/23/22 Catherine Cm MD [address] [place] [address] [place] [address] Cardiovascular Disease 07/21/22 Valery Veronica, PA-C [address] [place] [address] 008725 Physician Health And Safety Advisor Dermatology 07/21/22 Catherine Cm MD [address] [place] [address] [place], [place] 229675 Assigned Heart and Vascular Provider 07/24/22 11/05/22 Johnny Murillo MD [address] [place] [address] 834704 Assigned Musculoskeletal Provider 08/14/22 10/08/[address] COMMISSIONER [address] [place] [address] [id number] Nurse Practitioner Dermatology 09/21/[address] COMMISSIONER [address] [place] [address] [place] 056292 Assigned Surgical Provider 10/09/22 [place] [address] [place] [address] 983597 Assigned Musculoskeletal Provider 10/09/22 Livan Sharif MD [address], [facility] [address] [place] 890245 Assigned Heart and Vascular Provider 11/06/22 11/12/22 Catherine Cm MD [address] [facility] [address] [place] 061745 Assigned Heart and Vascular Provider 11/13/22 05/27/23 Sydnie Martinez, RN Personal Advocate & Liaison (PAL) Family Medicine 03/28/23 07/31/23 Alfonso Renteria MD 5775 [facility] 200 [place] [address] Assigned Neuroscience Provider 04/02/23 Cheng Todd PA-C [address] [place] [address] [id number] Assigned PCP 04/30/23 07/15/23 Radha Lomeli, HUMAN PERFORMANCE TECHNOLOGIST COURT COMMISSIONER [address] [place] [address] Assigned Heart and Vascular Provider 05/28/23 Jelena David OD [address] [place] [address] Ophthalmology 06/15/23 Pao Joseph, VJ Personal Advocate & Liaison (PAL) Nurse 08/01/23 11/07/23 Esha Grimm PAUcheC [address] [place] [phone] Assigned PCP 07/16/23 Valery Veronica PA-C 9 [place], [place] 354025 Physician Health And Safety Advisor Dermatology 09/19/23 Rey Tay MD 9 [place] [address] MD Gastroenterology 09/20/23 Rocky Zepeda DO 500 [place], [place] [address] Physician Gastroenterology 09/20/23 Philip Dumont MD [address] [place] [address] 456565 Physician Ophthalmology 09/22/23 Meredith Carrera PA-C 9 [place], [place] 157735 Assigned Gastroenterology Provider 11/01/23 Neil Kent MD [address] [address] Dermatology 11/02/23 [place] [address] [place] [address] Neurological Surgery 12/26/23 Audrey Waite PA-C 500 [place] [address] Physician Health And Safety Advisor Dermatology 02/28/24 documented as of this encounter
--- OUTSIDE RECORDS SUMMARY | 2024-03-12 19:39 | XMS_ITS | Encounter Summary ---
Author Organization [facility] Address [address] [place] [address] Care Team Providers Care Serologist Name Role Phone Lita Oseguera Unavailable Unavailable Marija Edgar APRN [employer]IV[employer] Primary Care Provider U Marija Bella APRN [employer]IV[employer] Unavailable Unavail able Keisha Dotson MD Unavailable Galo Burrell MD Unavailable Unavailable Diana Desir [facility] Unavailable [phone] Rain Galaviz PA-C Unavailable [phone] Summer Lara MD Unavailable [phone] Tavia Wyatt MD Unavailable Unavailable Johnny Murillo MD Unavailable [phone] Erica Farrell APRN [employer]IV[employer] Unavailable Tavia Wyatt MD Unavailable Unavailable Diana Desir [facility] Unavailable Rich Barrett MD Unavailable [phone] Neil Kent MD Unavailable Roney Story DPM Unavailable [phone] Erica Farrell CENTER CUSTOMER SERVICE ASSOCIATE [employer] Unavailable Diana Desir [facility] Unavailable [phone] Frankie, Jelena Radha OD Unavailable Galo Burrell MD Unavailable Unavailable Livan Sharif MD Unavailable + Livan Sharif MD Unavailable + IsCatherine hobbs MD Unavailable + Valery Veronica PA-C Unavailable [phone] Catherine Cm MD Unavailable + Johnny Murillo MD Unavailable [phone] Brea Quinn CENTER CUSTOMER SERVICE ASSOCIATE [employer] Unavailable [phone] Brea Quinn CENTER CUSTOMER SERVICE ASSOCIATE [employer] Unavailable [phone] Jose Francisco Johnson MD Unavailable Livan Sharif MD Unavailable + Catherine Cm MD Unavailable + Sydnie Martinez RN Unavailable Unavailable Alfonso Renteria MD Unavailable Esha Grimm PA-C Primary Care Provider Cheng Todd PA-C Unavailable Radha Lomeli CENTER CUSTOMER SERVICE ASSOCIATE [employer] Unavailable [phone] Jelena David OD Unavailable [phone] Pao Joseph RN Unavailable Unavailable Esha Grimm PA-C Unavailable [phone] Valery Veronica PA-C Unavailable [phone] Rey Tay MD Unavailable Rocky Zepeda DO Unavailable Philip Dumont MD Unavailable [phone] Meredith Carrera PA-C Unavailable [phone] Neil Kent MD Unavailable Juan Pablo Emmanuel MD Unavailable Audrey Waite PA-C Unavailable Encounter Details Date Type Department Care Team (Late st Contact Info) Description 12/03/2021 [facility] Medical Advice [address] [phone] Debbie Hdez MA Social History Tobacco Use [...] How often do you attend jewish or worship serv ices? Never 09/22/2021 Do [...] Answer Date Recorded PHQ-2 Score 2 09/22/2021 [facility] of Occupat ional Health [...] in a custodial (including now)? No 09/22/2021 [place] Depression Scale Answer Date Recorded [place] Depression Score 5 01/14/2021 Last EPDS Self [...] 03/26/2024 11:20 AM CDT Office Visit [facility] Spine and Neurosurgery [address] [facility] [address] [place] [address] Ebony Cid, CENTER CUSTOMER SERVICE ASSOCIATE [employer] 500 [place], [place] [address] 03/27/2024 11:00 AM CDT Office Visit [facility] [address] [facility] [address] [place] [phone] Jelena David, [address] [facility] [place] [address] 04/19/2024 2:45 PM CDT Office Visit [facility] 830 [place] [phone] Audrey Waite PA-C [address] [place] [address] B385, [facility] 603 [place] [address] 05/08/2024 1:30 PM CDT Office Visit [facility] [address] [place] [phone] Lauren Claudio PA-C [address] [place] [address] Esha Grimm PA-C [address] [place] [address] 06/21/2024 2:00 PM ELECTRIC SHAVER MECHANIC Office Visit [facility] Neurology [facility] [address] [facility], [address] [place] [address] [place] [address] [place] [address] Johnny Penn MD 4997 [place] [address] Scheduled Procedures Name Priority Associated [...] Out COVID-19 05/17/2022 05/17/2022 05/17/2022 10:20 PM ELECTRIC SHAVER MECHANIC Rule Out COVID-19 06/09/2022 06/09/2022 06/09/2022 9:35 AM ELECTRIC SHAVER MECHANIC COVID-19 06/09/2022 06/09/2022 06/30/2022 11:4 1 PM ELECTRIC SHAVER MECHANIC Rule Out COVID-19 11/10/2022 11/10/2022 11/11/2022 12:17 PM CDT Rule Out COVID-19 03/07/2023 03/07/2023 03/07/2023 1:20 PM CDT Rule Out COVID-19 12/26/2023 12/26/2023 12/26/2023 9:50 AM CDT Assessment Noted Time PHQ-9 Depression Total Score: 2 04/02/20 10:19 AM CDT documented as of this encounter Care Teams Serologist Relationship Specialty Start Date End Date Marija Edgar APRN [employer] PCP - General Nurse Practitioner 04/30/20 04/14/23 Esha Grimm PA-C [address] [place] [address] PCP - General Family Medicine 05/04/23 Lita Oseguera Personal Advocate & Liaison (PAL) 02/28/20 03/27/23 Marija Edgar APRN [employer] Assigned PCP 06/08/20 04/29/23 Keisha Dotson MD 909 [place], [place] [address] Assigned Neuroscience Provider 06/04/20 04/01/23 Galo Burrell MD Assigned Heart and Vascular Provider 10/05/20 04/02/22 Diana Desir, [facility] [address] [facility] [place] [address] Pharmacist Pharmacist 04/17/21 Rain Galaviz PA-C [address] [place] [address] [place] [address] Physician Supervisor Pipe Joints Dermatology 04/28/21 Summer Lara MD [address] [place] [address] Assigned OBGYN Provider 05/31/21 2 Tavia Wyatt MD [address] [address] Dermatology 07/14/21 Johnny Murillo MD [address] [place] [address] Assigned Musculoskeletal Provider 08/30/21 03/17/22 Erica Farrell APRN [employer]IV[employer] [address] [facility] [address] [place] [address] Nurse Practitioner Cardiovascular Disease 09/09/21 Tavia Wyatt MD Assigned Surgical Provider 11/29/21 05/07/22 [facility] [address] [place] [address] Assigned MTM Pharmacist 01/02/22 Rich Barrett MD [address] [facility] [address] [place], [place] [address] Physician Ophthalmology 01/21/22 Neil Kent MD 500 [place], [place] 84[address] Dermatology 02/24/22 Roney Story DPM [address] [facility] [address] [place] [address] Assigned Musculoskeletal Provider 03/20/22 08/13/22 Erica Farrell ARLENE [employer]IV[employer] 1700 [place] [address] Assigned Heart and Vascular Provider 04/03/22 04/16/22 Diana Desir, [facility] [address] [facility] [place] [address] Assigned MTM Pharmacist 04/07/22 Jelena David OD [address] [facility] [address] Assigned Surgical Provider 05/08/22 10/08/22 Galo Burrell MD Assigned Heart and Vascular Provider 04/17/22 06/11/22 Livan Sharif MD [address] [place] [address] Cardiovascular Disease 05/14/22 Livan Sharif MD [address] [place] [address] Assigned Heart and Vascular Provider 06/12/22 07/23/22 Catherine Cm MD [address] [place] [address] Cardiovascular Disease 07/21/22 Valery Veronica, PAUcheC 909 [place] [address] Physician Supervisor Pipe Joints Dermatology 07/21/22 Catherine Cm MD [address] [place] [address] Assigned Heart and Vascular Provider 07/24/22 11/05/22 Johnny Murillo MD [facility] [address] Assigned Musculoskeletal Provider 08/14/22 10/08/22 Brea Quinn APRN [employer]IVERSITY [address] [place] [address] Nurse Practitioner Dermatology 09/21/22 Brea Quinn APRN [employer] UNIVERSITY [address] [place] [address] [facility] [place] [place] [address] Assigned Surgical Provider 10/09/22 [place] [address] [facility] [address] [place] [address] Assigned Musculoskeletal Provider 10/09/22 Livan Sharif MD [address] [facility] , [facility] [address] [place] [address] Assigned Heart and Vascular Provider 11/06/22 11/12/22 Catherine Cm MD [address] [facility] [address] [place] [address] Assigned Heart and Vascular Provider 11/13/22 05/27/23 Sydnie Martinez RN Personal Advocate & Liaison (PAL) Family Medicine 03/28/23 07/31/23 Alfonso Renteria MD 5775 [facility] 200 [place], [place] [address] Assigned Neuroscience Provider 04/02/23 Cheng Todd PA-C [address] [place] [address] Assigned PCP 04/30/23 07/15/23 Radha Lomeli APRN [employer]IV[employer]ITY [address] [facility] [address] [place] [address] Assigned Heart and Vascular Provider 05/28/23 Jelena David OD [address] [facility] [address] MD Ophthalmology 06/15/23 Pao Joseph, VJ Personal Advocate & Liaison (PAL) Nurse 08/01/23 11/07/23 Esha Grimm PA-C [address] [place] [address] Assigned PCP 07/16/23 Valery Veronica PA-C [address] [place] [address] Physician Supervisor Pipe Joints Dermatology 09/19/23 Rey Tay MD [address] [place] [address] Gastroenterology 09/20/23 Rocky Zepeda DO [address] [place] [address] 298775 Physician Gastroenterology 09/20/23 Philip Dumont MD [address] [place] [address] 235485 Physician Ophthalmology 09/22/23 Meredith Carrera PA-C [address] [place] [address] 783195 Assigned Gastroenterology Provider 11/01/23 Neil Kent MD [address] [address] Dermatology 11/02/23 [place] [address] [address] Neurological Surgery 12/26/23 Audrey Waite PA-C [address] [place] [id number] Physician Supervisor Pipe Joints Dermatology 02/28/24 documented as of this encounter
--- OUTSIDE RECORDS SUMMARY | 2024-03-12 19:39 | XMS_ITS | Encounter Summary ---
Author Organization [facility] Address [address] [place] [address] Care Team Providers Care Welding Technician Name Role Phone Lita Oseguera Unavailable Unavailable Marija Edgar APRN SYNCHRO ASSEMBLER Primary Care Provider U Marija Bella APRN SYNCHRO ASSEMBLER Unavailable Unavail able Keisha Dotson MD Unavailable [phone] Diana Desir [facility] [place] Unavailable [phone] Rain Galaviz-C Unavailable [phone] Tavia Wyatt MD Unavailable Unavailable Erica Farrell APRN SYNCHRO ASSEMBLER Unavailable Tavia Wyatt MD Unavailable Unavailable Rich Barrett MD Unavailable [phone] Neil Kent MD Unavailable Roney StoryM Unavailable [phone] Diana Desir [facility] Unavailable [phone] Jelena David OD Unavailable Galo Burrell MD Unavailable Unavailable Livan Sharif MD Unavailable Livan Sharif MD Unavailable Catherine Cm MD Unavailable + Valery Veronica PA-C Unavailable [phone] Catherine Cm MD Unavailable + Johnny Murillo MD Unavailable [phone] Brea Quinn NURSE EDUCATOR SYNCHRO ASSEMBLER Unavailable [phone] Brea Quinn NURSE EDUCATOR SYNCHRO ASSEMBLER Unavailable [phone] Jose Francisco Johnson MD Unavailable Livan Sharif MD Unavailable Catherine Cm MD Unavailable + Sydnie Martinez RN Unavailable Unavailable Alfonso Renteria MD Unavailable [phone] Esha Grimm PA-C Primary Care Provider Cheng Todd PA-C Unavailable Radha Lomeli NURSE EDUCATOR SYNCHRO ASSEMBLER Unavailable Jelena David Radha OD Unavailable [phone] Pao Joseph RN Unavailable Unavailable Esha Grimm PA-C Unavailable [phone] Valery Veronica PA-C Unavailable Rey Tay MD Unavailable Rocky Zepeda DO Unavailable Philip Dumont MD Unavailable [phone] Meredith Carrera PA-C Unavailable [phone] Neil Kent MD Unavailable Juan Pablo Emmanuel MD Unavailable Audrey Waite PA-C Unavailable Encounter Details Date Type Department Care Team (Late st Contact Info) Description 04/20/2022 [facility] Heart [address] [place] [address] Margaret Rendon, RN Social History Tobacco Use [...] How often do you attend synagogue or druze serv ices? Never 09/22/2021 Do [...] Answer Date Recorded PHQ-2 Score 2 12/18/2021 [facility] of Occupat ional Health - Occupational [...] a senior living (including now)? No 09/22/2021 [place] Depression Scale Answer Date Recorded [place] [...] Description 03/26/2024 11:20 AM CDT Office Visit [facility] Spine and Neurosurgery [address] [facility] [address] [place] [address] Ebony Cid, [facility] 500 [place], [place] [address] 03/27/2024 11:00 AM CDT Office Visit [facility] [address] [facility] [address] [place] [phone] Jelena David, [place] [address] [facility] [address] 04/19/2024 2:45 PM CDT Office Visit [facility] [address] [place] [address] Audrey Waite PA-C [address] [facility] [address], [facility] 603 [place] [address] 05/08/2024 1:30 PM CDT Office Visit [facility] [address] [place] [phone] Lauren Claudio PA-C [address] [place], [place] [phone] Esha Grimm PA-C [address] [place] [address] 06/21/2024 2:00 PM FLAT IRONER Office Visit [facility] [address] [facility], [address] [place] [address] [place] [address] [address] [place] [address] Johnny Penn MD [address] [facility] [address] Scheduled Procedures Name Priority Associated Diagnoses Date/Ti nj ESOPHAGOGASTRODUODENOSCOPY Eosinophilic esophagitis Esophageal dysphagia documented as of this encounter Visit Diagnoses Not on filedocumented in this encounter Additional Health Concerns Infection Onset Date Last Indicated Resolved Time Rule Out COVID-19 04/26/2022 04/26/2022 04/26/2022 6:47 AM CDT Rule Out COVID-19 05/17/2022 05/17/2022 05/17/2022 10:20 PM FLAT IRONER Rule Out COVID-19 06/09/2022 06/09/2022 06/09/2022 9:35 AM FLAT IRONER COVID-19 06/09/2022 06/09/2022 06/30/2022 11:4 1 PM FLAT IRONER Rule Out COVID-19 11/10/2022 11/10/2022 11/11/2022 12:17 PM CDT Rule Out COVID-19 03/07/2023 03/07/2023 03/07/2023 1:20 PM CDT Rule Out COVID-19 12/26/2023 12/26/2023 12/26/2023 9:50 AM CDT Assessment Noted Time PHQ-9 Depression Total Score: 2 12/19/19 2:50 PM CDT documented as of this encounter Care Teams Welding Technician Relationship Specialty Start Date End Date Marija Edgar APRN SYNCHRO ASSEMBLER PCP - General Nurse Practitioner 04/30/20 04/14/23 Esha Grimm PA-C [address] [facility] [place] [address] PCP - General Family Medicine 05/04/23 Lita Oseguera Personal Advocate & Liaison (PAL) 02/28/20 03/27/23 Marija Edgar APRN SYNCHRO ASSEMBLER Assigned PCP 06/08/20 04/29/23 Keisha Dotson MD 909 [place], [place] [address] Assigned Neuroscience Provider 06/04/20 04/01/23 Diana Desir, [facility] 3033 [place], [place] [address] Pharmacist Pharmacist 04/17/21 Rain Galaviz PA-C [address] [place] [address] [address] [place] [address] Physician Web Database Developer Dermatology 04/28/21 Tavia Wyatt MD [address] [place] [address] [address] [place] [address] Dermatology 07/14/21 Erica Farrell APRN SYNCHRO ASSEMBLER [address] [facility] [address] [place] [address] Nurse Practitioner Cardiovascular Disease 09/09/21 Tavia Wyatt MD Assigned Surgical Provider 11/29/21 05/07/22 Rich Barrett MD [address] 784[address] Physician Ophthalmology 01/21/22 Neil Kent MD 500 [place], [place] [address] Dermatology 02/24/22 Roney Story DPM [address] [facility] [address] [place] [address] Assigned Musculoskeletal Provider 03/20/22 08/13/22 Diana Desir, [facility] [address] [place], [place] [address] Assigned MTM Pharmacist 04/07/22 Jelena David OD [address] [facility] [address] Assigned Surgical Provider 05/08/22 10/08/22 Galo Burrell MD Assigned Heart and Vascular Provider 04/17/22 06/11/22 Livan Sharif MD [address], [facility]00 [place], [place] [address] Cardiovascular Disease 05/14/22 Livan Sharif MD [address], [facility] [address] [place] [address] Assigned Heart and Vascular Provider 06/12/22 07/23/22 Catherine Cm MD [address] [facility] [address] [place] [address] Cardiovascular Disease 07/21/22 Valery Veronica, PA-C 909 [place] [address] Physician Web Database Developer Dermatology 07/21/22 Catherine Cm MD [address] [facility] [address] [place] [address] Assigned Heart and Vascular Provider 07/24/22 11/05/22 Johnny Murillo MD [address] [address] Assigned Musculoskeletal Provider 08/14/22 10/08/22 Brea Quinn APRN SYNCHRO ASSEMBLER [address] [place] [address] 483275 Nurse Practitioner Dermatology 09/21/22 Brea Quinn APRN SYNCHRO ASSEMBLER [address] [place] [address] [place] 192722 Assigned Surgical Provider 10/09/22 [place] [address] [address] Assigned Musculoskeletal Provider 10/09/22 Livan Sharif MD [address], [address] [place] [address] Assigned Heart and Vascular Provider 11/06/22 11/12/22 Catherine Cm MD [address] [place] [address] Assigned Heart and Vascular Provider 11/13/22 05/27/23 Sydnie Martinez RN Personal Advocate & Liaison (PAL) Family Medicine 03/28/23 07/31/23 Alfonso Renteria MD [address] [facility] [address] 200 [place] [address] Assigned Neuroscience Provider 04/02/23 Cheng Todd PA-C [address] [place] [address] Assigned PCP 04/30/23 07/15/23 Radha Lomeli APRN SYNCHRO ASSEMBLER [address] [facility] [address] [place] [address] Assigned Heart and Vascular Provider 05/28/23 Jelena David OD [address] [facility] [address] Ophthalmology 06/15/23 Pao Joseph, VJ Personal Advocate & Liaison (PAL) Nurse 08/01/23 11/07/23 Esha Grimm PA-C [address] [place] [address] Assigned PCP 07/16/23 Valery Veronica PA-C [address] [place] [address] Physician Web Database Developer Dermatology 09/19/23 Rey Tay MD [address] [place] [address] Gastroenterology 09/20/23 Rocky Zepeda DO [address] [place] [address] Physician Gastroenterology 09/20/23 Philip Dumont MD 6 [place] [address] Physician Ophthalmology 09/22/23 Meredith Carrera PA-C [address] [place] [address] Assigned Gastroenterology Provider 11/01/23 Neil Kent MD [address] [place] [address] Dermatology 11/02/23 [place] [address] [address] Neurological Surgery 12/26/23 Audrey Waite PA-C 500 [place] [address] Physician Web Database Developer Dermatology 02/28/24 documented as of this encounter
--- OUTSIDE RECORDS SUMMARY | 2024-03-12 19:40 | XMS_ITS | Encounter Summary ---
Author Organization Protection Address [address] [place] [address] Care Team Providers Care Certified Pedorthotist Name Role Phone Lita Oseguera Unavailable Unavailable Marija Edgar APRN DIRECTOR SPORTS Primary Care Provider U Marija Bella APRN DIRECTOR SPORTS Unavailable Unavail able Mynor Broussard MD Unavailable [phone] Keisha Dotson MD Unavailable [phone] Galo Burrell MD Unavailable Unavailable Diana Desir [facility] Unavailable Rain Galaviz PA-C Unavailable Summer Lara MD Unavailable [phone] Tavia Wyatt MD Unavailable Unavailable Johnny Murillo MD Unavailable Erica Farrell APRN DIRECTOR SPORTS Unavailable Tavia Wyatt MD Unavailable Unavailable Diana Desir [facility] Unavailable [phone] Rich Barrett MD Unavailable [phone] Neil Kent MD Unavailable Roney StoryM Unavailable [phone] Erica Farrell APRN DIRECTOR SPORTS Unavailable Diana Desir [facility] Unavailable [phone] Jelena David OD Unavailable [phone] Galo Burrell MD Unavailable Unavailable Livan Sharif MD Unavailable Livan Sharif MD Unavailable IsCatherine hobbs MD Unavailable + Valery Veronica PA-C Unavailable + [phone] Catherine Cm MD Unavailable + Johnny Murillo MD Unavailable [phone] Brea Quinn HEAD OF TRAINING AND DEVELOPMENT DIRECTOR SPORTS Unavailable [phone] Brea Quinn HEAD OF TRAINING AND DEVELOPMENT DIRECTOR SPORTS Unavailable [phone] Jose Francisco Johnson MD Unavailable Livan Sharif MD Unavailable + IsCatherine hobbs MD Unavailable + Sydnie Martinez RN Unavailable Unavailable Alfonso Renteria MD Unavailable [phone] Esha Grimm PA-C Primary Care Provider Cheng Todd PA-C Unavailable Radha Lomeli APRN DIRECTOR SPORTS Unavailable [phone] Jelena David OD Unavailable Pao Joseph RN Unavailable Unavailable Esha Grimm PA-C Unavailable [phone] Valery Veronica PA-C Unavailable [phone] Rey Tay MD Unavailable Rocky Zepeda DO Unavailable Philip Dumont MD Unavailable [phone] Meredith Carrera PA-C Unavailable Neil Kent MD Unavailable Juan Pablo Emmanuel MD Unavailable [phone] Audrey Waite PA-C Unavailable [phone] Encounter Details Date Type Department Care Team (Late st Contact Info) Description 10/28/2021 MyC Medical Advice [facility] Heart [facility] [address] [facility] [address] [place] [address] Erica Farrell APRN DIRECTOR SPORTS 1700 [place] [address] Social History Tobacco Use Types Packs/Day Years [...] How often do you attend yazidi or restorationism serv ices? Never 09/22/2021 Do you belong [...] Answer Date Recorded PHQ-2 Score 2 09/22/2021 [facility] - [...] in a halfway (including now)? No 09/22/2021 Bryson Depression Scale Answer Date Recorded Bryson Depression Score 5 01/14/2021 Last EPDS Self [...] [facility] Spine and Neurosurgery 1747 [facility] 100 [place] [phone] Ebony Cid, ARLENE DIRECTOR SPORTS 500 [place] [address] 03/27/2024 11:00 AM CDT Office Visit [facility] Monserrat [address] [place] [phone] Jelena David, SONJA [address] [facility] [place] [address] 04/19/2024 2:45 PM CDT Office Visit [facility] 830 [place] [phone] Audrey Waite PA-C [address] [place] [address] B385, [facility] 603 [place], [place] [address] 05/08/2024 1:30 PM CDT Office Visit [facility] [address] [place] [address] Lauren Claudio PA-C [address] [place] [address] Esha Grimm PA-C [address] [place] [address] 06/21/2024 2:00 PM WINCHER Office Visit [facility] Neurology [facility] [address] [place] [address], [address] [place] [phone] [place] [address] [place] [address] Johnny Penn MD 6545 [place] [address] Scheduled Procedures Name Priority Associated Diagnoses Date/Ti wy ESOPHAGOGASTRODUODENOSCOPY Eosinophilic esophagitis Esophageal dysphagia documented as of this encounter Visit Diagnoses Not on filedocumented in this encounter Additional Health Concerns Infection Onset Date Last Indicated Resolved Time Rule Out COVID-19 12/18/2021 12/18/2021 12/19/2021 11:34 AM CDT Rule Out COVID-19 02/24/2022 02/24/2022 02/25/2022 1:08 PM CDT Rule Out COVID-19 04/26/2022 04/26/2022 04/26/2022 6:47 AM CDT Rule Out COVID-19 05/17/2022 05/17/2022 05/17/2022 10:20 PM WINCHER Rule Out COVID-19 06/09/2022 06/09/202206/0906/09/2022 9:35 AM WINCHER COVID-19 06/09/2022 06/09/2022 06/30/2022 11:4 1 PM WINCHER Rule Out COVID-19 11/10/2022 11/10/2022 11/11/2022 12:17 PM CDT Rule Out COVID-19 03/07/2023 03/07/2023 03/07/2023 1:20 PM CDT Rule Out COVID-19 12/26/2023 12/26/2023 12/26/2023 9:50 AM CDT Assessment Noted Time PHQ-9 Depression Total Score: 2 04/02/20 10:19 AM CDT documented as of this encounter Care Teams Certified Pedorthotist Relationship Specialty Start Date End Date Marija Edgar APRN DIRECTOR SPORTS PCP - General Nurse Practitioner 04/30/20 04/14/23 Esha Grimm PAUcheC [address] [place] [phone] PCP - General Family Medicine 05/04/23 Lita Oseguera Personal Advocate & Liaison (PAL) 02/28/20 03/27/23 Marija Edgar APRN DIRECTOR SPORTS Assigned PCP 06/08/20 04/29/23 Mynor Broussard MD [address] [address] [address] Assigned Surgical Provider 06/01/20 11/28/21 Keisha Dotson MD 909 [place] [address] Assigned Neuroscience Provider 06/04/20 04/01/23 Galo Burrell MD Assigned Heart and Vascular Provider 10/05/20 04/02/22 [facility] 3033 [place] [address] Pharmacist Pharmacist 04/17/21 Rain Galaviz PA-C [address] [place] [address] DR ARTEAGA GIOVANY [facility] [place] [address] Physician Feed Management Advisor Dermatology 04/28/21 Summer Lara MD [address] [place] [address] Assigned OBGYN Provider 05/31/21 2 Tavia Wyatt MD [address] [place] [address] Dermatology 07/14/21 Johnny Murillo MD [facility] [place] [address] Assigned Musculoskeletal Provider 08/30/21 03/17/22 Erica Farrell APRN DIRECTOR SPORTS [address] [facility] [address] [place] [address] Nurse Practitioner Cardiovascular Disease 09/09/21 Tavia Wyatt MD Assigned Surgical Provider 11/29/21 05/07/22 Diana Desir, [facility] 3033 [place] [address] Assigned MTM Pharmacist 01/02/22 Rich Barrett MD 516 [facility] [address]A [place], [place] [address] Physician Ophthalmology 01/21/22 Neil Kent MD 500 [place] [address] Dermatology 02/24/22 Roney Story DPM [address] [place] [address] Assigned Musculoskeletal Provider 03/20/22 08/13/22 Erica Farrell APRN DIRECTOR SPORTS 17[address] [place] [address] Assigned Heart and Vascular Provider 04/03/22 04/16/22 Diana Desir, [facility] 30[address] [place] [address] Assigned MTM Pharmacist 04/07/22 Jelena David OD [address] [facility] [place] [address] Assigned Surgical Provider 05/08/22 10/08/22 Galo Burrell MD Assigned Heart and Vascular Provider 04/17/22 06/11/22 Livan Sharif MD [address] [place] [address] Cardiovascular Disease 05/14/22 Livan Sharif MD [address] [place] [address] Assigned Heart and Vascular Provider 06/12/22 07/23/22 Catherine Cm MD [address] [place] [address] [place] [address] Cardiovascular Disease 07/21/22 Valery Veronica PA-C [address] [place] [address] Physician Feed Management Advisor Dermatology 07/21/22 Catherine Cm MD [address] [address] Assigned Heart and Vascular Provider 07/24/22 11/05/22 Johnny Murillo MD [address] [place] [address] Assigned Musculoskeletal Provider 08/14/22 10/08/22 Brea Quinn APRN DIRECTOR SPORTS [address] [place] [address] 865435 Nurse Practitioner Dermatology 09/21/22 Brea Quinn APRN DIRECTOR SPORTS [address] [place] [address] Assigned Surgical Provider 10/09/22 [place] [address] [address] Assigned Musculoskeletal Provider 10/09/22 Livan Sharif MD [address] [facility] L[place] [address] [address] Assigned Heart and Vascular Provider 11/06/22 11/12/22 Catherine Cm MD [address] [place] [address] Assigned Heart and Vascular Provider 11/13/22 05/27/23 Sydnie Martinez RN Personal Advocate & Liaison (PAL) Family Medicine 03/28/23 07/31/23 Alfonso Renteria MD [facility] [address] [place] [address] Assigned Neuroscience Provider 04/02/23 Cheng Todd PA-C [address] [place] [address] [id number] Assigned PCP 04/30/23 07/15/23 Radha Lomeli APRN DIRECTOR SPORTS [address] [place] [address] Assigned Heart and Vascular Provider 05/28/23 Jelena David OD [address] [facility] [place] [address] Ophthalmology 06/15/23 Pao Joseph RN Personal Advocate & Liaison (PAL) Nurse 08/01/23 11/07/23 Esha Grimm PA-C [address] [place] [address] Assigned PCP 07/16/23 Valery Veronica PA-C [address] [place] [address] Physician Feed Management Advisor Dermatology 09/19/23 Rey Tay MD 9 [place] [address] MD Gastroenterology 09/20/23 Rocky Zepeda DO 500 [place] [address] Physician Gastroenterology 09/20/23 Philip Dumont MD [address] [place] [address] Physician Ophthalmology 09/22/23 Meredith Carrera PA-C 9 [place] [address] Assigned Gastroenterology Provider 11/01/23 Neil Kent MD [address] [address] Dermatology 11/02/23 [place] [address] [facility] [place] [address] Neurological Surgery 12/26/23 Audrey Waite PA-C 500 [place] [address] Physician Feed Management Advisor Dermatology 02/28/24 documented as of this encounter
--- OUTSIDE RECORDS SUMMARY | 2024-03-12 19:40 | XMS_ITS | Encounter Summary ---
Author Organization [place] Address [address] [place] [address] Care Team Providers Care Mask Design Engineer Name Role Phone Lita Oseguera Unavailable Unavailable Marija Edgar APRN RECORDING STUDIO SETUP WORKER Primary Care Provider U Marija Bella APRN RECORDING STUDIO SETUP WORKER Unavailable Unavail able Mynor Broussard MD Unavailable [phone] Keisha Dotson MD Unavailable [phone] Galo Burrell MD Unavailable Unavailable Diana Desir [facility] Unavailable Rain Galaviz PA-C Unavailable Summer Lara MD Unavailable [phone] Tavia Wyatt MD Unavailable Unavailable Johnny Murillo MD Unavailable Erica Farrell APRN RECORDING STUDIO SETUP WORKER Unavailable Tavia Wyatt MD Unavailable Unavailable Diana Desir [facility] Unavailable [phone] Rich Barrett MD Unavailable [phone] Neil Kent MD Unavailable Roney StoryM Unavailable [phone] Erica Farrell APRN RECORDING STUDIO SETUP WORKER Unavailable Diana Desir [facility] Unavailable [phone] Jelena David OD Unavailable [phone] Galo Burrell MD Unavailable Unavailable Livan Sharif MD Unavailable Livan Sharif MD Unavailable IsCatherine hobbs MD Unavailable + Valery Veronica PA-C Unavailable [phone] Catherine Cm MD Unavailable + Johnny Murillo MD Unavailable [phone] Brea Quinn MD [facility] RECORDING STUDIO SETUP WORKER Unavailable [phone] Brea Quinn MD [facility] RECORDING STUDIO SETUP WORKER Unavailable [phone] Jose Francisco Johnson MD Unavailable Livan Sharif MD Unavailable + IsCatherine hobbs MD Unavailable + Sydnie Martinez RN Unavailable Unavailable Alfonso Renteria MD Unavailable [phone] Esha Grimm PA-C Primary Care Provider Cheng Todd PA-C Unavailable Rahda Lomeli APRN RECORDING STUDIO SETUP WORKER Unavailable [phone] Jelena David OD Unavailable [phone] Pao Joseph RN Unavailable Unavailable sEha Grimm PA-C Unavailable [phone] Valery Veronica PA-C Unavailable [phone] Rey Tay MD Unavailable Rocky Zepeda DO Unavailable Philip Dumont MD Unavailable [phone] Meredith Carrera PA-C Unavailable Neil Kent MD Unavailable Juan Pablo Emmanuel MD Unavailable [phone] Audrey Waite PA-C Unavailable [phone] Reason for Visit * Reason Onset Date Comments Refill Request 10/31/2021 sertraline Encounter Details Date Type Department Care Team (Late st Contact Info) Description 10/31/[address] [phone] Marija Edgar APRN RECORDING STUDIO SETUP WORKER Refill Request (sertraline) Social History Tobacco Use [...] How often do you attend adventism or sabianism serv ices? Never 09/22/2021 Do [...] Answer Date Recorded PHQ-2 Score 2 09/22/2021 [facility] of Occupat ional [...] a long term (including now)? No 09/22/2021 [place] Depression Scale Answer Date Recorded [place] Depression Score 5 01/14/2021 Last EPDS Self [...] - 11/02/2021 8:58 AM CDT Approved per [facility] CPA. Diana Desir PharmD Medication Therapy Management Provider, [facility] Pager: [phone] * Telephone Encounter - Aleyda Scott RN [...] daily. Pt has follow up tomorrow with [facility] pharmacist to continue to work on taper. Appointments in Next Year Nov 03, 2021 3:30 PM Pharmacist Visit with Diana Desir [facility] ([facility] ) [phone] Informed patient that will route refill request to Diana Desir. Pt verbalized understanding and is in agreement of plan. Aleyda Alvarez, RN * Telephone Encounter - Amalia Deluca - 10/31/2021 10:31 AM CDTSummary: MEDICATION REQUEST FROM PHARM Reason for Call: Other prescription Detailed comments: PHARM SAYS- PT IS TAPERING OFF OF SERTALINE BUT IS CURRENTLY OUT OF TABS AND LOOKS LIKE CLINIC CANCELLED REMAIN REFILLS YESTERDAY, CALLING TO REQUEST GET REST OF HER TAPER Phone Number Patient can be reached at: Other phone number: [phone] Best Time: ANYTIME Can we leave a detailed message on this number? YES Call taken on 10/31/2021 at 10:31 AM by Amalia Deluca documented in this encounter Plan of Treatment Upcoming Encounters Date Type Department Care Team (Late st Contact Info) Description 03/26/2024 11:20 AM CDT Office Visit [facility] Spine and Neurosurgery 1747 [facility] 100 [place] [address] Ebony Cid APRN [facility] 500 [place], [place] [address] 03/27/2024 11:00 AM CDT Office Visit [facility] Monserrat [address] [facility] [address] [place] [phone] Jelena David, [address] [facility] [place] [address] 04/19/2024 2:45 PM CDT [facility] Visit [facility] 830 [place] [phone] Audrey Waite PA-C 420 [facility] [address]385, [facility] 603 [place], [place] [address] 05/08/2024 1:30 PM CDT Office Visit [facility] [address] [place] [address] Lauren Claudio PA-C [address] [place] [address] Esha Grimm PA-C [address] [place] [address] 06/21/2024 2:00 PM OBSTETRICS SCRUB NURSE Office Visit [facility] Neurology [address], [address] [place] [phone] [place] [address] [place] [address] Johnny Penn MD 6545 [place] [address] Scheduled Procedures Name Priority Associated [...] Out COVID-19 05/17/2022 05/17/2022 05/17/2022 10:20 PM OBSTETRICS SCRUB NURSE Rule Out COVID-19 06/09/2022 06/09/2022 06/09/2022 9:35 AM OBSTETRICS SCRUB NURSE COVID-19 06/09/2022 06/09/2022 06/30/2022 11:4 1 PM OBSTETRICS SCRUB NURSE Rule Out COVID-19 11/10/2022 11/10/2022 11/11/2022 12:17 PM CDT Rule Out COVID-19 03/07/2023 03/07/2023 03/07/2023 1:20 PM CDT Rule Out COVID-19 12/26/2023 12/26/2023 12/26/2023 9:50 AM CDT Assessment Noted Time PHQ-9 Depression Total Score: 2 04/02/20 10:19 AM CDT documented as of this encounter Care Teams Mask Design Engineer Relationship Specialty Start Date End Date Marija Edgar APRN RECORDING STUDIO SETUP WORKER PCP - General Nurse Practitioner 04/30/20 04/14/23 Esha Grimm PA-C [address] [place] [phone] PCP - General Family Medicine 05/04/23 Lita Oseguera Personal Advocate & Liaison (PAL) 02/28/20 03/27/23 Marija Edgar APRN RECORDING STUDIO SETUP WORKER Assigned PCP 06/08/20 04/29/23 Mynor Broussard MD [address] [address] Assigned Surgical Provider 06/01/20 11/28/21 Keisha Dotson MD 909 [place], [place] [address] Assigned Neuroscience Provider 06/04/20 04/01/23 Galo Burrell MD Assigned Heart and Vascular Provider 10/05/20 04/02/22 Diana Desir, [facility] [address] [place] [address] Pharmacist Pharmacist 04/17/21 Rain Galaviz PA-C [address] [place] [address] [place] [address] Physician Food And Beverage Attendant Dermatology 04/28/21 Summer Lara MD [address] [place] [address] Assigned OBGYN Provider 05/31/21 2 Tavia Wyatt MD [address] [place] [address] Dermatology 07/14/21 Johnny Murillo MD [address] [facility] [address] [place] [address] Assigned Musculoskeletal Provider 08/30/21 03/17/22 Erica Farrell APRN RECORDING STUDIO SETUP WORKER [address] [facility] [address] [place] [address] Nurse Practitioner Cardiovascular Disease 09/09/21 Tavia Wyatt MD Assigned Surgical Provider 11/29/21 05/07/22 Diana Desir, [facility] [address] [place] [address] Assigned MTM Pharmacist 01/02/22 Rich Barrett MD 516 [facility] 9A [place] [address] Physician Ophthalmology 01/21/22 Neil Kent MD 500 [place] [address] Dermatology 02/24/22 Roney Story DPM [address] [facility] [address] [place] [address] Assigned Musculoskeletal Provider 03/20/22 08/13/22 Erica Farrell APRN RECORDING STUDIO SETUP WORKER 1700 [place] [address] Assigned Heart and Vascular Provider 04/03/22 04/16/22 Diana Desir, [facility] [address] [place] [address] Assigned MTM Pharmacist 04/07/22 Jelena David OD [address] [place] [address] Assigned Surgical Provider 05/08/22 10/08/22 Galo Burrell MD Assigned Heart and Vascular Provider 04/17/22 06/11/22 Livan Sharif MD [address] [place] [address] Cardiovascular Disease 05/14/22 Livan Sharif MD [address] [place] [address] Assigned Heart and Vascular Provider 06/12/22 07/23/22 Catherine Cm MD [address] [place] [address] Cardiovascular Disease 07/21/22 Valery Veronica, PAUcheC [address] [place] [address] Physician Food And Beverage Attendant Dermatology 07/21/22 Catherine Cm MD [address] [facility] [place] [address] Assigned Heart and Vascular Provider 07/24/22 11/05/22 Johnny Murillo MD [address] [place] [address] Assigned Musculoskeletal Provider 08/14/22 10/08/22 Brea Quinn APRN RECORDING STUDIO SETUP WORKER [address] [place] [address] Nurse Practitioner Dermatology 09/21/22 Brea Quinn APRN RECORDING STUDIO SETUP WORKER [address] [place] [address] Assigned Surgical Provider 10/09/22 [place] [address] [address] Assigned Musculoskeletal Provider 10/09/22 Livan Sharif MD [address] [place] [address] Assigned Heart and Vascular Provider 11/06/22 11/12/22 Catherine Cm MD [address] [place] [address] Assigned Heart and Vascular Provider 11/13/22 05/27/23 Sydnie Martinez RN Personal Advocate & Liaison (PAL) Family Medicine 03/28/23 07/31/23 Alfonso Renteria MD [address] [facility] [address] [place] [address] Assigned Neuroscience Provider 04/02/23 Cheng Todd PA-C [address] [place] [address] 23481127 Assigned PCP 04/30/23 07/15/23 Radha Lomeli APRN RECORDING STUDIO SETUP WORKER [address] [place] [address] Assigned Heart and Vascular Provider 05/28/23 Jelena David OD [address] [place] [address] Ophthalmology 06/15/23 Pao Joseph RN Personal Advocate & Liaison (PAL) Nurse 08/01/23 11/07/23 Esha Grimm PA-C [address] [place] [address] Assigned PCP 07/16/23 Valery Veronica PA-C [address] [place] [address]60[address] Physician Food And Beverage Attendant Dermatology 09/19/23 Rey Tay MD [address] [place] [address] MD Gastroenterology 09/20/23 Rocky Zepeda DO 500 [place] [address] Physician Gastroenterology 09/20/23 Philip Dumont MD 6 [place] [address] Physician Ophthalmology 09/22/23 Meredith Carrera PA-C 9 [place], [place] 403075 Assigned Gastroenterology Provider 11/01/23 Neil Kent MD [address] [address] Dermatology 11/02/23 [place] [address] [place] [address] Neurological Surgery 12/26/23 Audrey Waite PA-C 500 [place] [address] Physician Food And Beverage Attendant Dermatology 02/28/24 documented as of this encounter
--- OUTSIDE RECORDS SUMMARY | 2024-03-12 19:40 | XMS_ITS | Encounter Summary ---
Author Organization Range Address [address] [place] [address] Care Team Providers Care Head Of Ict Name Role Phone Lita Oseguera Unavailable Unavailable Marija Edgar APRN RADAR SCIENTIST Primary Care Provider U Marija Bella APRN RADAR SCIENTIST Unavailable Unavail able Mynor Broussard MD Unavailable [phone] Keisha Dotson MD Unavailable [phone] Galo Burrell MD Unavailable Unavailable Diana Desir [facility] Unavailable [phone] Rain Galaviz PA-C Unavailable Summer Lara MD Unavailable [phone] Tavia Wyatt MD Unavailable Unavailable Johnny Murillo MD Unavailable Erica Farrell APRN RADAR SCIENTIST Unavailable Teresita Bean [facility] Unavailable Tavia Wyatt MD Unavailable Unavailable Diana Desir [facility] Unavailable [phone] Rich Barrett MD Unavailable Neil Kent MD Unavailable Roney Story DPM Unavailable [phone] Erica Farrell APRN RADAR SCIENTIST Unavailable + Diana Desir [facility] Unavailable [phone] Jelena David OD Unavailable Galo Burrell MD Unavailable Unavailable Livan Sharif MD Unavailable Livan Sharif MD Unavailable IsCatherine hobbs MD Unavailable + Valery Veronica PA-C Unavailable [phone] Catherine Cm MD Unavailable + Johnny Murillo MD Unavailable [phone] Brea Quinn CONTACT REPRESENTATIVE RADAR SCIENTIST Unavailable [phone] Brea Quinn CONTACT REPRESENTATIVE RADAR SCIENTIST Unavailable [phone] Jose Francisco Johnson MD Unavailable Livan Sharif MD Unavailable + IsCatherine hobbs MD Unavailable + Sydnie Martinez RN Unavailable Unavailable Alfonso Renteria MD Unavailable Esha Grimm PA-C Primary Care Provider Cheng Todd PA-C Unavailable Radha Lomeli CONTACT REPRESENTATIVE RADAR SCIENTIST Unavailable [phone] Jelena David OD Unavailable [phone] Pao Joseph RN Unavailable Unavailable Esha Grimm-C Unavailable [phone] Valery Veronica PA-C Unavailable [phone] Rey Tay MD Unavailable Rocky Zepeda DO Unavailable Philip Dumont MD Unavailable [phone] Meredith Carrera PA-C Unavailable [phone] Neil Kent MD Unavailable Juan Pablo Emmanuel MD Unavailable Audrey Waite PA-C Unavailable [phone] Encounter Details Date Type Department Care Team (Late st Contact Info) Description 09/02/2021 MyC Medical Advice [address] [address] Diana Desir, [facility] [address] [place] [address] Social History Tobacco Use Types [...] do you attend [facility] or yarsanism services? More than 4 times [...] Date Recorded PHQ-2 Score 0 04/02/2021 [facility] of [...] a skilled nursing (including now)? No 08/11/2020 [place] Depression Scale Answer Date Recorded [place] Depression Score 5 01/14/2021 Last EPDS Self [...] COVID-19? No / Unsure 09/02/2021 12:26 PM RN RECRUITMENT documented as of this encounter Plan of Treatment Upcoming Encounters Date Type Department Care Team (Late st Contact Info) Description 03/26/2024 11:20 AM CDT Office Visit [facility] Spine and Neurosurgery 1747 [facility] 100 [place] [phone] Ebony Cid, CONTACT REPRESENTATIVE [facility] [address] [place] [address] 03/27/2024 11:00 AM CDT Office Visit [facility] Monserrat [address] [facility] [address] [place] [phone] Jelena David, SONJA 3305 [facility] [place] [address] 04/19/2024 2:45 PM CDT Office Visit [facility] 830 [place] [phone] Audrey Waite PA-C [address], [facility] 603 [place], [place] [phone] 05/08/2024 1:30 PM CDT Office Visit [facility] [address] [place] [address] Lauren Claudio PA-C [address] [place] [address] Esha Grimm PA-C [address] [place] [address] 06/21/2024 2:00 PM RN RECRUITMENT Office Visit [facility] Neurology [facility] - [address], [address] [place] [address] [place] [address] [place] [address] Johnny ePnn MD [address] [place], [place] [phone] Scheduled Procedures Name Priority Associated Diagnoses Date/Ti [...] Out COVID-19 05/17/2022 05/17/2022 05/17/2022 10:20 PM RN RECRUITMENT Rule Out COVID-19 06/09/2022 06/09/2022 06/09/2022 9:35 AM RN RECRUITMENT COVID-19 06/09/2022 06/09/2022 06/30/2022 11:4 1 PM RN RECRUITMENT Rule Out COVID-19 11/10/2022 11/10/2022 11/11/2022 12:17 PM CDT Rule Out COVID-19 03/07/2023 03/07/2023 03/07/2023 1:20 PM CDT Rule Out COVID-19 12/26/2023 12/26/2023 12/26/2023 9:50 AM CDT Assessment Noted Time PHQ-9 Depression Total Score: 2 04/02/20 10:19 AM CDT documented as of this encounter Care Teams Head Of Ict Relationship Specialty Start Date End Date Marija Edgar APRN RADAR SCIENTIST PCP - General Nurse Practitioner 04/30/20 04/14/23 Esha Grimm PA-C [address] [place] [phone] PCP - General Family Medicine 05/04/23 Lita Oseguera Personal Advocate & Liaison (PAL) 02/28/20 03/27/23 Marija Edgar APRN RADAR SCIENTIST Assigned PCP 06/08/20 04/29/23 Mynor Broussard MD [address] [address] Assigned Surgical Provider 06/01/20 11/28/21 Keisha Dotson MD 9 [place] [address] Assigned Neuroscience Provider 06/04/20 04/01/23 Galo Burrell MD Assigned Heart and Vascular Provider 10/05/20 04/02/22 Diana Desir, [facility] [address] [place] [address] Pharmacist Pharmacist 04/17/21 Rain Galaviz PA-C [address] [place] [address] DR ARRIOL[address] [facility] [place] [address] Physician Yarn Weight And Strength Tester Dermatology 04/28/21 Summer Lara MD [address] [place] [address] Assigned OBGYN Provider 05/31/21 Tavia Wyatt MD [address] [place] [address] Dermatology 07/14/21 Johnny Murillo MD [address] [place] [address] Assigned Musculoskeletal Provider 08/30/21 03/17/22 Erica Farrell APRN RADAR SCIENTIST [address] [facility] [address] [place] [address] Nurse Practitioner Cardiovascular Disease 09/09/21 [facility] [address] [place] [address] Pharmacist Pharmacist 09/24/21 09/29/21 Tavia Wyatt MD Assigned Surgical Provider 11/29/21 05/07/22 Diana Desir, [facility] [address] [place] [address] Assigned MTM Pharmacist 01/02/22 Rich Barrett MD [address] [address] Physician Ophthalmology 01/21/22 Neil Kent MD [address] [place], [place] 370785 Dermatology 02/24/22 Roney Story DPM [address] [facility] [address] [place], [place] 778[address] Assigned Musculoskeletal Provider 03/20/22 08/13/22 Erica Farrell APRN RADAR SCIENTIST 1700 [place] [address] Assigned Heart and Vascular Provider 04/03/22 04/16/22 Diana Desir, [facility] [address] [place] [address] Assigned MTM Pharmacist 04/07/22 Jelena David OD [address] [facility] [address] Assigned Surgical Provider 05/08/22 10/08/22 Galo Burrell MD Assigned Heart and Vascular Provider 04/17/22 06/11/22 Livan Sharif MD [address] [facility] [address] [place] [address] Cardiovascular Disease 05/14/22 Livan Sharif MD [address], [facility] [address] [place] [address] Assigned Heart and Vascular Provider 06/12/22 07/23/22 Catherine Cm MD [address] [facility] [address] [place] 075965 Cardiovascular Disease 07/21/22 Valery Veronica, PAUcheC [address] [place] [address] 573865 Physician Yarn Weight And Strength Tester Dermatology 07/21/22 Catherine Cm MD [address] [facility]00 [place] [address] Assigned Heart and Vascular Provider 07/24/22 11/05/22 Johnny Murillo MD [facility] [address] 165894 Assigned Musculoskeletal Provider 08/14/22 10/08/22 Brea Quinn APRN RADAR SCIENTIST [address] [place] [address] 220185 Nurse Practitioner Dermatology 09/21/22 Brea Quinn APRN RADAR SCIENTIST [address] [place] [address] [place] 346052 Assigned Surgical Provider 10/09/22 [place] [address] 511827 Assigned Musculoskeletal Provider 10/09/22 Livan Sharif MD [address], [facility] [address] [place] 594445 Assigned Heart and Vascular Provider 11/06/22 11/12/22 Catherine Cm MD [address] [address] [place] 805025 Assigned Heart and Vascular Provider 11/13/22 05/27/23 Sydnie Martinez RN Personal Advocate & Liaison (PAL) Family Medicine 03/28/23 07/31/23 Alfonso Renteria MD 5775 [facility] 200 [place] [address] Assigned Neuroscience Provider 04/02/23 Cheng Todd PA-C [address] [place] [address] [id number] Assigned PCP 04/30/23 07/15/23 Radha Lomeli, CONTACT REPRESENTATIVE RADAR SCIENTIST [address] [place] [address] Assigned Heart and Vascular Provider 05/28/23 Jelena David OD [address] [facility] [place] [address] Ophthalmology 06/15/23 Pao Joseph, VJ Personal Advocate & Liaison (PAL) Nurse 08/01/23 11/07/23 Esha Grimm PA-C [address] [place] [address] Assigned PCP 07/16/23 Valery Veronica PA-C 909 [place] [address] Physician Yarn Weight And Strength Tester Dermatology 09/19/23 Rey Tay MD [address] [place] [address] MD Gastroenterology 09/20/23 Rocky Zepeda DO 500 [place], [place] 719315 Physician Gastroenterology 09/20/23 Philip Dumont MD [address] [place] [address] 405405 Physician Ophthalmology 09/22/23 Meredith Carrera PA-C [address] [place] [address] Assigned Gastroenterology Provider 11/01/23 Neil Kent MD [address] [address] Dermatology 11/02/23 [place] [address] [place] [address] Neurological Surgery 12/26/23 Audrey Waite PA-C 500 [place], [place] 777[address] Physician Yarn Weight And Strength Tester Dermatology 02/28/24 documented as of this encounter
--- OUTSIDE RECORDS SUMMARY | 2024-03-12 19:40 | XMS_ITS | Encounter Summary ---
Author Organization [facility] Address [address] [place] [address] Care Team Providers Care Shoe Singer Name Role Phone Lita Oseguera Unavailable Unavailable Marija Edgar APRN HARBOR ENGINEER Primary Care Provider U Marija Bella APRN HARBOR ENGINEER Unavailable Unavail able Mynor Broussard MD Unavailable [phone] Keisha Dotson MD Unavailable Galo Burrell MD Unavailable Unavailable Diana Desir [facility] Unavailable Rani Galaviz PA-C Unavailable Summer Lara MD Unavailable [phone] Tavia Wyatt MD Unavailable Unavailable Johnny Murillo MD Unavailable Erica Farrell APRN HARBOR ENGINEER Unavailable Teresita Bean [facility] Unavailable Tavia Wyatt MD Unavailable Unavailable Diana Desir [facility] Unavailable [phone] Rich Barrett MD Unavailable Neil Kent MD Unavailable Roney Story DPM Unavailable [phone] Erica Farrell APRN HARBOR ENGINEER Unavailable + Diana Desir [facility] Unavailable Jelena David OD Unavailable Galo Burrell MD Unavailable Unavailable Livan Sharif MD Unavailable iLvan Sharif MD Unavailable IsCatherine hobbs MD Unavailable + Valery Veronica PA-C Unavailable [phone] Catherine Cm MD Unavailable + Johnny Murillo MD Unavailable [phone] Brea Quinn LABOR COMMISSIONER HARBOR ENGINEER Unavailable [phone] Brea Quinn LABOR COMMISSIONER HARBOR ENGINEER Unavailable [phone] Jose Francisco Johnson MD Unavailable Livan Sharif MD Unavailable + IsCatherine hobbs MD Unavailable + Sydnie Martinez RN Unavailable Unavailable Alfonso Renteria MD Unavailable Esha Grimm PA-C Primary Care Provider Cheng Todd PA-C Unavailable Radha Lomeli LABOR COMMISSIONER HARBOR ENGINEER Unavailable [phone] Jelena David OD Unavailable [phone] Pao Joseph RN Unavailable Unavailable Esha Grimm-C Unavailable [phone] Valery Veronica PA-C Unavailable [phone] Rey Tay MD Unavailable Rocky Zepeda DO Unavailable Philip Dumont MD Unavailable [phone] Meredith Carrera PA-C Unavailable [phone] Neil Kent MD Unavailable Juan Pablo Emmnauel MD Unavailable [phone] Audrey Waite PA-C Unavailable [phone] Encounter Details Date Type Department Care Team [...] you attend chur ch or hinduism services? More than 4 times per year [...] Answer Date Recorded PHQ-2 Score 0 04/02/2021 [facility] [...] in a mcfp (including now)? No 08/11/2020 [place] Depression Scale Answer Date Recorded [place] Depression Score 5 01/14/2021 Last EPDS [...] COVID-19? No / Unsure 09/02/2021 12:26 PM FRONT END TECHNICIAN documented as of this encounter Plan of Treatment Upcoming Encounters Date Type Department Care Team (Late st Contact Info) Description 03/26/2024 11:20 AM CDT Office Visit [facility] Spine and Neurosurgery 1747 [facility] 100 [place] [address] Ebony Cid, LABOR COMMISSIONER HARBOR ENGINEER 500 [place], [place] 25[address] 03/27/2024 11:00 AM CDT Office Visit [facility] Monserrat [address]305 [facility] [address] [place] [phone] Jelena David, 3305 [facility] [place] [address] 04/19/2024 2:45 PM CDT Office Visit [facility] 830 [place] [phone] Audrey Waite PA-C 420 [facility] [address], [facility] 603 [place] [address] 05/08/2024 1:30 PM CDT Office Visit [facility] [address] [place] [address] Lauren Claudio PA-C [address] [place], [place] [phone] Esha Grimm PA-C [address] [place] [address] 06/21/2024 2:00 PM FRONT END TECHNICIAN Office Visit [facility] Neurology Clinics - [address], [address] [place] [address] [place] [address] [place] [address] Johnny Penn MD 6545 [place] [address] Scheduled Procedures Name Priority Associated [...] Out COVID-19 05/17/2022 05/17/2022 05/17/2022 10:20 PM FRONT END TECHNICIAN Rule Out COVID-19 06/09/2022 06/09/2022 06/09/2022 9:35 AM FRONT END TECHNICIAN COVID-19 06/09/2022 06/09/2022 06/30/2022 11:4 1 PM FRONT END TECHNICIAN Rule Out COVID-19 11/10/2022 11/10/2022 11/11/2022 12:17 PM CDT Rule Out COVID-19 03/07/2023 03/07/2023 03/07/2023 1:20 PM CDT Rule Out COVID-19 12/26/2023 12/26/2023 12/26/2023 9:50 AM CDT Assessment Noted Time PHQ-9 Depression Total Score: 2 04/02/20 10:19 AM CDT documented as of this encounter Care Teams Shoe Singer Relationship Specialty Start Date End Date Marija Edgar APRN HARBOR ENGINEER PCP - General Nurse Practitioner 04/30/20 04/14/23 Esha Grimm PAUcheC [address] [place] [address] PCP - General Family Medicine 05/04/23 Lita Oseguera Personal Advocate & Liaison (PAL) 02/28/20 03/27/23 Marija Edgar APRN HARBOR ENGINEER Assigned PCP 06/08/20 04/29/23 Mynor Broussard MD [address] [address] Assigned Surgical Provider 06/01/20 11/28/21 Keisha Dotson MD 909 [place] [address] Assigned Neuroscience Provider 06/04/20 04/01/23 Galo Burrell MD Assigned Heart and Vascular Provider 10/05/20 04/02/22 [facility] 3033 [place], [place] 212[address] Pharmacist Pharmacist 04/17/21 Rain Galaviz PA-C [address] [facility] [address] [facility]OLA [facility] [place] [place] [address] Physician Rigger Helper Dermatology 04/28/21 Summer Lara MD [address] [place] [address] Assigned OBGYN Provider 05/31/21 2 Tavia Wyatt MD [address] [place] [address] Dermatology 07/14/21 Johnny Murillo MD [address] [place] [address] Assigned Musculoskeletal Provider 08/30/21 03/17/22 Erica Farrell APRN HARBOR ENGINEER [address] [facility] [address] [place] [address] Nurse Practitioner Cardiovascular Disease 09/09/21 Teresita Bean, [facility] [address] [place] [address] Pharmacist Pharmacist 09/24/21 09/29/21 Tavia Wyatt MD Assigned Surgical Provider 11/29/21 05/07/22 [facility] [address] [place] [address] Assigned MTM Pharmacist 01/02/22 Rich Barrett MD 516 [facility] [address]A [place] [address] Physician Ophthalmology 01/21/22 Neil Kent MD 500 [place], [place] 5[address]45 Dermatology 02/24/22 Roney Story DPM [address] [address] [facility] [address] [place] [address] Assigned Musculoskeletal Provider 03/20/22 08/13/22 Erica Farrell APRN HARBOR ENGINEER 1700 [place] [address] Assigned Heart and Vascular Provider 04/03/22 04/16/22 [facility] 30[address] [place] [address] Assigned MTM Pharmacist 04/07/22 Jelena David OD [address] [facility] [place] [address] Assigned Surgical Provider 05/08/22 10/08/22 Galo Burrell MD Assigned Heart and Vascular Provider 04/17/22 06/11/22 Livan Sharif MD [address] [place] [address] Cardiovascular Disease 05/14/22 Livan Sharif MD [address] [place] 080785 Assigned Heart and Vascular Provider 06/12/22 07/23/22 Catherine Cm MD [address] [address] [place] [address] Cardiovascular Disease 07/21/22 Valery Veronica, PAUcheC [address] [place] [address] Physician Rigger Helper Dermatology 07/21/22 Catherine Cm MD [address] [facility] [address] [place] 419215 Assigned Heart and Vascular Provider 07/24/22 11/05/22 Johnny Murillo MD [address] [place] [address] 918394 Assigned Musculoskeletal Provider 08/14/22 10/08/22 Brea Quinn APRN HARBOR ENGINEER [address] [place] [address] 849915 Nurse Practitioner Dermatology 09/21/22 Brea Quinn APRN HARBOR ENGINEER [address] [place] [address] [place] 609082 Assigned Surgical Provider 10/09/22 [place] [address] 022[address] Assigned Musculoskeletal Provider 10/09/22 Livan Sharif MD [address], [address] [address] [place] [address] Assigned Heart and Vascular Provider 11/06/22 11/12/22 Catherine Cm MD [address] [address] [place] [address] Assigned Heart and Vascular Provider 11/13/22 05/27/23 Sydnie Martinez RN Personal Advocate & Liaison (PAL) Family Medicine 03/28/23 07/31/23 Alfonso Renteria MD 5775 [facility] [address] 200 [place] [address] Assigned Neuroscience Provider 04/02/23 Cheng Todd PA-C [address] [place] [address] [id number] Assigned PCP 04/30/23 07/15/23 Radha Lomeli, ARLENE HARBOR ENGINEER [address] [place] [address] Assigned Heart and Vascular Provider 05/28/23 Jelena David OD [address] [facility] [place] [address] Ophthalmology 06/15/23 Pao Joseph, VJ Personal Advocate & Liaison (PAL) Nurse 08/01/23 11/07/23 Esha Grimm PA-C [address] [place] [address] Assigned PCP 07/16/23 Valery Veronica PA-C 909 [place], [place] 98[address] Physician Rigger Helper Dermatology 09/19/23 Rey Tay MD 909 [place] [address] MD Gastroenterology 09/20/23 Rocky Zepeda DO 500 [place] [address] Physician Gastroenterology 09/20/23 Philip Dumont MD 6 [place] [address] Physician Ophthalmology 09/22/23 Meredith Carrera PA-C 9 [place] [address] Assigned Gastroenterology Provider 11/01/23 Neil Kent MD [address] [address] MD Dermatology 11/02/23 [place] [address] [address] Neurological Surgery 12/26/23 Audrey Waite PA-C 500 [place] [address] Physician Rigger Helper Dermatology 02/28/24 documented as of this encounter
--- OUTSIDE RECORDS SUMMARY | 2024-03-12 19:40 | XMS_ITS | Encounter Summary ---
Author Organization [facility] Address [address] [place] [address] Care Team Providers Care Building Energy Retrofit Technician Name Role Phone Lita Oseguera Unavailable Unavailable Marija Edgar APRN QUALITY ASSURANCE LAB TECHNICIAN Primary Care Provider U Marija Bella APRN QUALITY ASSURANCE LAB TECHNICIAN Unavailable Unavail able Mynor Broussard MD Unavailable [phone] Keisha Dotson MD Unavailable Galo Burrell MD Unavailable Unavailable Diana Desir [facility] Unavailable Rain Galaviz PA-C Unavailable Summer Lara MD Unavailable [phone] Tavia Wyatt MD Unavailable Unavailable Johnny Murillo MD Unavailable Erica Farrell APRN QUALITY ASSURANCE LAB TECHNICIAN Unavailable Teresita Bean [facility] Unavailable [phone] Tavia Wyatt MD Unavailable Unavailable Diana Desir [facility] Unavailable [phone] Rich Barrett MD Unavailable Neil [place] MD Unavailable Roney Story DPM Unavailable [phone] Erica Farrell APRN QUALITY ASSURANCE LAB TECHNICIAN Unavailable + Diana Desir [facility] Unavailable Jelena David OD Unavailable [phone] Galo Burrell MD Unavailable Unavailable Livan Sharif MD Unavailable Livan Sharif MD Unavailable IsCatherine hobbs MD Unavailable + Valery Veronica PA-C Unavailable [phone] Catherine Cm MD Unavailable + Johnny Murillo MD Unavailable [phone] Brea Quinn PRESIDING JUDGE QUALITY ASSURANCE LAB TECHNICIAN Unavailable [phone] Brea Quinn PRESIDING JUDGE QUALITY ASSURANCE LAB TECHNICIAN Unavailable [phone] Jose Francisco Johnson MD Unavailable Livan Sharif MD Unavailable + IsCatherine hobbs MD Unavailable + Sydnie Martinez RN Unavailable Unavailable Alfonso Renteria MD Unavailable Esha Grimm PA-C Primary Care Provider Cheng Todd PA-C Unavailable Radha Lomeli PRESIDING JUDGE QUALITY ASSURANCE LAB TECHNICIAN Unavailable [phone] Jelena David OD Unavailable [phone] Pao Joseph RN Unavailable Unavailable Esha Grimm-C Unavailable [phone] Valery Veronica PA-C Unavailable [phone] Rey Tay MD Unavailable Rocky Zepeda DO Unavailable Philip Dumont MD Unavailable [phone] Byron Carreran A PA-C Unavailable [phone] Neil [place] MD Unavailable Juan Pablo Emmanuel MD Unavailable [phone] Audrey Waite PA-C Unavailable [phone] Encounter Details Date Type Department Care Team (Late st Contact Info) Description 08/04/[address] [facility] [address] [address] [facility] Social History Tobacco Use Types Packs/Day Years [...] How often do you attend chur or hoahaoism services? More than 4 times per year [...] Answer Date Recorded PHQ-2 Score 0 04/02/2021 [facility] - [...] in a jail (including now)? No 08/11/2020 [place] Depression Scale Answer Date Recorded [place] Depression Score 5 01/14/2021 Last EPDS Self [...] COVID-19? No / Unsure 08/03/2021 2:24 PM ESTIMATOR documented as of this encounter Plan of Treatment Upcoming Encounters Date Type Department Care Team (Late st Contact Info) Description 03/26/2024 11:20 AM CDT Office Visit [facility] Spine and Neurosurgery 1747 [facility] 100 [place] [address] Ebony Cid, PRESIDING JUDGE QUALITY ASSURANCE LAB TECHNICIAN 500 [place], [place] [address] 03/27/2024 11:00 AM CDT Office Visit [facility] Monserrat [address] [facility] [address] [facility] [address] [place] [phone] Jelena David, [place] [address] [facility] [place] [address] 04/19/2024 2:45 PM CDT Office Visit [facility] 830 [place] [address] Audrey Waite, ROVERTO [address] [facility] [address], [facility] 603 [place] [address] 05/08/2024 1:30 PM CDT Office Visit [facility] [address] [place] [address] Lauren Claudio PA-C [address] [place] [address] Esha Grimm PA-C [address] [place] [address] 06/21/2024 2:00 PM ESTIMATOR Office Visit [facility] Neurology [facility] [address] [place] [address], [address] [place] [address] [place] [address] [place] [address] Johnny Penn MD 6505 [place] [address] Scheduled Procedures Name Priority Associated Diagnoses Date/Ti ca ESOPHAGOGASTRODUODENOSCOPY Eosinophilic esophagitis Esophageal dysphagia documented as of this encounter Visit Diagnoses Not on filedocumented in this encounter Additional Health Concerns Infection Onset Date Last Indicated Resolved Time COVID-19 07/18/2021 07/18/2021 08/08/2021 11:3 9 PM ESTIMATOR Rule Out COVID-19 12/18/2021 12/18/2021 12/19/2021 11:34 AM CDT Rule Out COVID-19 02/24/2022 02/24/2022 02/25/2022 1:08 PM CDT Rule Out COVID-19 04/26/2022 04/26/2022 04/26/2022 6:47 AM CDT Rule Out COVID-19 05/17/2022 05/17/2022 05/17/2022 10:20 PM ESTIMATOR Rule Out COVID-19 06/09/2022 06/09/2022 06/09/2022 9:35 AM ESTIMATOR COVID-19 06/09/2022 06/09/2022 06/30/2022 11:4 1 PM ESTIMATOR Rule Out COVID-19 11/10/2022 11/10/2022 11/11/2022 12:17 PM CDT Rule Out COVID-19 03/07/2023 03/07/2023 03/07/2023 1:20 PM CDT Rule Out COVID-19 12/26/2023 12/26/2023 12/26/2023 9:50 AM CDT Assessment Noted Time PHQ-9 Depression Total Score: 2 04/02/20 10:19 AM CDT documented as of this encounter Care Teams Building Energy Retrofit Technician Relationship Specialty Start Date End Date Marija Edgar APRN QUALITY ASSURANCE LAB TECHNICIAN PCP - General Nurse Practitioner 04/30/20 04/14/23 Esha Grimm PAUcheC [address] [place] [address] PCP - General Family Medicine 05/04/23 Lita Oseguera Personal Advocate & Liaison (PAL) 02/28/20 03/27/23 Marija Edgar APRN QUALITY ASSURANCE LAB TECHNICIAN Assigned PCP 06/08/20 04/29/23 Mynor Broussard MD [address] [address] Assigned Surgical Provider 06/01/20 11/28/21 Keisha Dotson MD 9 [place] [address] Assigned Neuroscience Provider 06/04/20 04/01/23 Galo Burrell MD Assigned Heart and Vascular Provider 10/05/20 04/02/22 Diana Desir, [facility] [address] [place] [address] Pharmacist Pharmacist 04/17/21 Rain Galaviz PA-C [address] [place] [address] DR [facility] [place] [address] Physician Contract Negotiator Dermatology 04/28/21 Summer Lara MD [address] [place] [address] Assigned OBGYN Provider 05/31/21 Tavia Wyatt MD [address] [place] [address] Dermatology 07/14/21 Johnny Murillo MD [address] [place] [address] Assigned Musculoskeletal Provider 08/30/21 03/17/22 Erica Farrell APRN QUALITY ASSURANCE LAB TECHNICIAN [address] [facility] [address] [place] [address] Nurse Practitioner Cardiovascular Disease 09/09/21 Teresita Bean [facility] [address] [place] [address] Pharmacist Pharmacist 09/24/21 09/29/21 Tavia Wyatt MD Assigned Surgical Provider 11/29/21 05/07/22 Diana Desir, [facility] [address] [place] [address] Assigned MTM Pharmacist 01/02/22 Rich Barrett MD [address] [address] Physician Ophthalmology 01/21/22 Neil [place] MD 500 [place], [place] [address] Dermatology 02/24/22 Roney Story DPM [address] [facility] [address] [place], [place] [address] Assigned Musculoskeletal Provider 03/20/22 08/13/22 Erica Farrell APRN QUALITY ASSURANCE LAB TECHNICIAN [facility] [place] [address] Assigned Heart and Vascular Provider 04/03/22 04/16/22 Diana Desir, [facility] [address] [place] [address] Assigned MTM Pharmacist 04/07/22 Jelena David OD [address] [place] [address] Assigned Surgical Provider 05/08/22 10/08/22 Galo Burrell MD Assigned Heart and Vascular Provider 04/17/22 06/11/22 Livan Sharif MD [address] [place] 848[address] Cardiovascular Disease 05/14/22 Livan Sharif MD [address], [facility] [address] [place] [address] Assigned Heart and Vascular Provider 06/12/22 07/23/22 Catherine Cm MD [address] [facility] [address] [place] [address] Cardiovascular Disease 07/21/22 Valery Veronica, PA-C [address] [place] [address] Physician Contract Negotiator Dermatology 07/21/22 Catherine Cm MD [address] [facility] [place] [address] Assigned Heart and Vascular Provider 07/24/22 11/05/22 Johnny Murillo MD [facility] 9527[address] Assigned Musculoskeletal Provider 08/14/22 10/08/22 Brea Quinn APRN QUALITY ASSURANCE LAB TECHNICIAN [address] [place] [address] 279845 Nurse Practitioner Dermatology 09/21/22 Brea Quinn APRN QUALITY ASSURANCE LAB TECHNICIAN [address] [place] [address] [place] [address]172 Assigned Surgical Provider 10/09/22 [place] [address] RA[address] [place] [address] Assigned Musculoskeletal Provider 10/09/22 Livan Sharif MD [address], [facility] [address] [place] [address] Assigned Heart and Vascular Provider 11/06/22 11/12/22 Catherine Cm MD [address] [place] [address] Assigned Heart and Vascular Provider 11/13/22 05/27/23 Sydnie Martinez RN Personal Advocate & Liaison (PAL) Family Medicine 03/28/23 07/31/23 Alfonso Renteria MD 5775 [facility] 200 [place] [address] Assigned Neuroscience Provider 04/02/23 Cheng Todd PA-C [address] [place] [address] [id number] Assigned PCP 04/30/23 07/15/23 Radha Lomeli APRN QUALITY ASSURANCE LAB TECHNICIAN [address] [place] [address] Assigned Heart and Vascular Provider 05/28/23 Jelena David OD [facility] [place] [address] Ophthalmology 06/15/23 Pao Joseph, VJ Personal Advocate & Liaison (PAL) Nurse 08/01/23 11/07/23 Esha Grimm PA-C [address] [place] [address] Assigned PCP 07/16/23 Valery Veronica PA-C 909 [place] [address] Physician Contract Negotiator Dermatology 09/19/23 Rey Tay MD [address] [place] [address] MD Gastroenterology 09/20/23 Rocky Zepeda DO 500 [place] [address] Physician Gastroenterology 09/20/23 Philip Dumont MD [address] [place] [address] Physician Ophthalmology 09/22/23 Meredith Carrera PA-C [address] [place] [address] Assigned Gastroenterology Provider 11/01/23 Neil [place] MD [address] [address] Dermatology 11/02/23 [place] [address] [address] Neurological Surgery 12/26/23 Audrey Waite PA-C 500 [place] [address] Physician Contract Negotiator Dermatology 02/28/24 documented as of this encounter
--- OUTSIDE RECORDS SUMMARY | 2024-03-12 19:40 | XMS_ITS | Encounter Summary ---
Author Organization [facility] Address [address] [place] [address] Care Team Providers Care Urgent Care Nurse Practitioner Name Role Phone Lita Oseguera Unavailable Unavailable Marija Edgar APRN BINDER COVERSTITCH Primary Care Provider U Marija Bella APRN BINDER COVERSTITCH Unavailable Unavail able Mynor Broussard MD Unavailable [phone] Keisha Dotson MD Unavailable Galo Burrell MD Unavailable Unavailable Diana Desir [facility] Unavailable [phone] Rain Galaviz PA-C Unavailable Summer Lara MD Unavailable [phone] Tavia Wyatt MD Unavailable Unavailable Johnny Murillo MD Unavailable Erica Farrell APRN BINDER COVERSTITCH Unavailable Teresita Bean [facility] Unavailable Tavia Wyatt MD Unavailable Unavailable Diana Desir [facility] Unavailable [phone] Rich Barrett MD Unavailable Neil [place] MD Unavailable Roney Story DPM Unavailable [phone] Erica Farrell APRN BINDER COVERSTITCH Unavailable + Diana Desir [facility] Unavailable Jelena David OD Unavailable [phone] Galo Burrell MD Unavailable Unavailable Livan Sharif MD Unavailable Livan Sharif MD Unavailable IsCatherine hobbs MD Unavailable + Valery Veronica PA-C Unavailable [phone] Catherine Cm MD Unavailable + Johnny Murillo MD Unavailable [phone] Brea Quinn MILLING GENERAL SUPERINTENDENT BINDER COVERSTITCH Unavailable [phone] Brea Quinn MILLING GENERAL SUPERINTENDENT BINDER COVERSTITCH Unavailable [phone] Jose Francisco Johnson MD Unavailable Livan Sharif MD Unavailable + IsCatherine hobbs MD Unavailable + Sydnie Martinez RN Unavailable Unavailable Alfonso Renteria MD Unavailable Esha Grimm PA-C Primary Care Provider Cheng Todd PA-C Unavailable Radha Lomeli MILLING GENERAL SUPERINTENDENT BINDER COVERSTITCH Unavailable [phone] Jelena David OD Unavailable [phone] Pao Joseph RN Unavailable Unavailable Esha Grimm-C Unavailable [phone] Valery Veronica PA-C Unavailable [phone] Rey Tay MD Unavailable Rocky Zepeda DO Unavailable Philip Dumont MD Unavailable [phone] Meredith Carrera PA-C Unavailable [phone] Neil [place] MD Unavailable Juan Pablo Emmanuel MD Unavailable [phone] Audrey Waite PA-C Unavailable [phone] Encounter Details Date Type Department Care Team [...] often do you attend chur ch or gnosticism services? More than 4 times [...] health care facility (including now)? No 08/11/2020 [place] Depression Scale Answer Date Recorded [place] Depression Score 5 01/14/2021 Last EPDS Self [...] COVID-19? No / Unsure 08/03/2021 2:24 PM WIRE BORDER ASSEMBLER documented as of this encounter Plan of Treatment Upcoming Encounters Date Type Department Care Team (Late st Contact Info) Description 03/26/2024 11:20 AM CDT Office Visit [facility] Spine and Neurosurgery 1747 [facility] 100 [place] [address] Ebony Cid, MILLING GENERAL SUPERINTENDENT BINDER COVERSTITCH 500 [place], [place] [address] 03/27/2024 11:00 AM CDT Office Visit [facility] Monserrat [address] [facility] [address] [place] [phone] Jelena David, [address] [facility] [place] [address] 04/19/2024 2:45 PM CDT Office Visit [facility] 830 [place] [address] Audrey Waite PA-C [address] [facility] [address], [facility] 603 [place] [address] 05/08/2024 1:30 PM CDT Office Visit [facility] [address] [place] [address] Lauren Claudio PA-C [address] [place], [place] [phone] Esha Grimm PA-C [address] [place] [address] 06/21/2024 2:00 PM WIRE BORDER ASSEMBLER Office Visit [facility] Neurology [facility] [address], [address] [place] [address] [place] [address] [place] [address] Johnny Penn MD 6545 [place] [address] Scheduled Procedures Name Priority Associated Diagnoses Date/Ti mi ESOPHAGOGASTRODUODENOSCOPY Eosinophilic esophagitis Esophageal dysphagia documented as of this encounter Visit Diagnoses Not on filedocumented in this encounter Additional Health Concerns Infection Onset Date Last Indicated Resolved Time COVID-19 07/18/2021 07/18/2021 08/08/2021 11:3 9 PM WIRE BORDER ASSEMBLER Rule Out COVID-19 12/18/2021 12/18/2021 12/19/2021 11:34 AM CDT Rule Out COVID-19 02/24/2022 02/24/2022 02/25/2022 1:08 PM CDT Rule Out COVID-19 04/26/2022 04/26/2022 04/26/2022 6:47 AM CDT Rule Out COVID-19 05/17/2022 05/17/2022 05/17/2022 10:20 PM WIRE BORDER ASSEMBLER Rule Out COVID-19 06/09/2022 06/09/2022 06/09/2022 9:35 AM WIRE BORDER ASSEMBLER COVID-19 06/09/2022 06/09/2022 06/30/2022 11:4 1 PM WIRE BORDER ASSEMBLER Rule Out COVID-19 11/10/2022 11/10/2022 11/11/2022 12:17 PM CDT Rule Out COVID-19 03/07/2023 03/07/2023 03/07/2023 1:20 PM CDT Rule Out COVID-19 12/26/2023 12/26/2023 12/26/2023 9:50 AM CDT Assessment Noted Time PHQ-9 Depression Total Score: 2 04/02/20 10:19 AM CDT documented as of this encounter Care Teams Urgent Care Nurse Practitioner Relationship Specialty Start Date End Date Marija Edgar APRN BINDER COVERSTITCH PCP - General Nurse Practitioner 04/30/20 04/14/23 Esha Grimm PA-C [address] [place] [address] PCP - General Family Medicine 05/04/23 Lita Oseguera Personal Advocate & Liaison (PAL) 02/28/20 03/27/23 Marija Edgar APRN BINDER COVERSTITCH Assigned PCP 06/08/20 04/29/23 Mynor Broussard MD [address] [address] Assigned Surgical Provider 06/01/20 11/28/21 Keisha Dotson MD 909 [place], [place] [address] Assigned Neuroscience Provider 06/04/20 04/01/23 Galo Burrell MD Assigned Heart and Vascular Provider 10/05/20 04/02/22 Diana Desir, [facility] 3033 [place] [address] Pharmacist Pharmacist 04/17/21 Rain Galaviz PA-C [address] [place] [address] [place] [address] Physician Solderer Barrel Ribs Dermatology 04/28/21 Summer Lara MD [address] [place] [address] Assigned OBGYN Provider 05/31/21 2 Tavia Wyatt MD [address] [place] [address] Dermatology 07/14/21 Johnny Murillo MD [address] [place] [address] Assigned Musculoskeletal Provider 08/30/21 03/17/22 Erica Farrell APRN BINDER COVERSTITCH 6[address] [facility] [address] [place] [address] Nurse Practitioner Cardiovascular Disease 09/09/21 Teresita Bean, [facility] [address] [place] [address] Pharmacist Pharmacist 09/24/21 09/29/21 Tavia Wyatt MD Assigned Surgical Provider 11/29/21 05/07/22 Diana Desir, [facility] [address] [place] [address] Assigned MTM Pharmacist 01/02/22 Rich Barrett MD 510 [facility] [place], [place] [address] Physician Ophthalmology 01/21/22 Neil [place] MD 500 [place] [address] Dermatology 02/24/22 Roney Story DPM [address] [facility] [address] [place] [address] Assigned Musculoskeletal Provider 03/20/22 08/13/22 Erica Farrell APRN BINDER COVERSTITCH 1700 [place] [address] Assigned Heart and Vascular Provider 04/03/22 04/16/22 [facility] [address] [place] [address] Assigned MTM Pharmacist 04/07/22 Jelena David OD [address] [facility] [place] [address] Assigned Surgical Provider 05/08/22 10/08/22 Galo Burrell MD Assigned Heart and Vascular Provider 04/17/22 06/11/22 Livan Sharif MD [address] [place] [address]58[address] Cardiovascular Disease 05/14/22 Livan Sharif MD [address] [place] 494645 Assigned Heart and Vascular Provider 06/12/22 07/23/22 Catherine Cm MD [address] [facility]00 [place] [address] Cardiovascular Disease 07/21/22 Valery Veronica, PAUcheC [address] [place] [address] Physician Solderer Barrel Ribs Dermatology 07/21/22 Catherine Cm MD [address] [facility]00 [place] [address] Assigned Heart and Vascular Provider 07/24/22 11/05/22 Johnny Murillo MD [address] [place] [address] Assigned Musculoskeletal Provider 08/14/22 10/08/22 Brea Quinn APRN BINDER COVERSTITCH [address] [place] [address] Nurse Practitioner Dermatology 09/21/22 Brea Quinn APRN BINDER COVERSTITCH [address] [place] [address] [place] [address] Assigned Surgical Provider 10/09/22 [place] [address] [place] [address] [place] [address] Assigned Musculoskeletal Provider 10/09/22 Livan Sharif MD [address], [facility]00 [place] 930535 Assigned Heart and Vascular Provider 11/06/22 11/12/22 Catherine Cm MD [address] [place] [address] Assigned Heart and Vascular Provider 11/13/22 05/27/23 Sydnie Martinez RN Personal Advocate & Liaison (PAL) Family Medicine 03/28/23 07/31/23 Alfonso Renteria MD [facility] [facility] 200 [place], [place] 136976 Assigned Neuroscience Provider 04/02/23 Cheng Todd PA-C [address] [place] [address] [id number] Assigned PCP 04/30/23 07/15/23 Radha Lomeli APRN BINDER COVERSTITCH [address] [place], [place] [address] Assigned Heart and Vascular Provider 05/28/23 Jelena David OD [address] [facility] [place] [address] Ophthalmology 06/15/23 Pao Joseph, VJ Personal Advocate & Liaison (PAL) Nurse 08/01/23 11/07/23 Esha Grimm PA-C [address] [place] [address] Assigned PCP 07/16/23 Valery Veronica PA-C [address] [place] [address] Physician Solderer Barrel Ribs Dermatology 09/19/23 Rey Tay MD 9 [place] [address] MD Gastroenterology 09/20/23 Rocky Zepeda DO 500 [place] [address] Physician Gastroenterology 09/20/23 Philip Dumont MD 516 [place] [address] Physician Ophthalmology 09/22/23 Meredith Carrera PA-C [address] [place] [address] Assigned Gastroenterology Provider 11/01/23 Neil [place] MD [address] [address] Dermatology 11/02/23 [place] [address] [place] [address] Neurological Surgery 12/26/23 Audrey Waite PA-C 500 [place] [address] Physician Solderer Barrel Ribs Dermatology 02/28/24 documented as of this encounter
--- OUTSIDE RECORDS SUMMARY | 2024-03-12 19:40 | XMS_ITS | Encounter Summary ---
Author Organization [facility] Address [address] [place] [address] Care Team Providers Care Meat Selector Name Role Phone Lita Oseguera Unavailable Unavailable Marija Edgar APRN MEDICAL SCIENCE LIAISON Primary Care Provider U Marija Bella APRN MEDICAL SCIENCE LIAISON Unavailable Unavail able Mynor Broussard MD Unavailable [phone] Keisha Dotson MD Unavailable [phone] Galo Burrell MD Unavailable Unavailable Diana Desir [facility] Unavailable Rain Galaviz PA-C Unavailable Summer Lara MD Unavailable [phone] Tavia Wyatt MD Unavailable Unavailable Johnny Murillo MD Unavailable Erica Farrell APRN MEDICAL SCIENCE LIAISON Unavailable Teresita Bean [facility] Unavailable [phone] Tavai Wyatt MD Unavailable Unavailable Diana Desir [facility] Unavailable [phone] Rich Barrett MD Unavailable Neil Kent MD Unavailable Roney Story DPM Unavailable [phone] Erica Farrell APRN MEDICAL SCIENCE LIAISON Unavailable + Diana Desir [facility] Unavailable Jelena David OD Unavailable [phone] Galo Burrell MD Unavailable Unavailable Livan Sharif MD Unavailable Livan Sharif MD Unavailable IsCatherine hobbs MD Unavailable + Valery Veronica PA-C Unavailable [phone] Catherine Cm MD Unavailable + Johnny Murillo MD Unavailable [phone] Brea Quinn [employer] PROJECT MANAGER MEDICAL SCIENCE LIAISON Unavailable [phone] Brea Quinn [employer] PROJECT MANAGER MEDICAL SCIENCE LIAISON Unavailable [phone] Jose Francisco Johnson MD Unavailable Livan Sharif MD Unavailable + IsCatherine hobbs MD Unavailable + Sydnie Martinez RN Unavailable Unavailable Alfonso Renteria MD Unavailable Esha Grimm PA-C Primary Care Provider Cheng Todd PA-C Unavailable Radha Lomeli [employer] PROJECT MANAGER MEDICAL SCIENCE LIAISON Unavailable [phone] Jelena David OD Unavailable [phone] Pao Joseph RN Unavailable Unavailable Esha Grimm-C Unavailable Valery Veronica PA-C Unavailable [phone] Rey Tay MD Unavailable Rocky Zepeda DO Unavailable Philip Dumont MD Unavailable [phone] AffeldtMeredith PA-C Unavailable [phone] Neil Kent MD Unavailable Juan Pablo Emmanuel MD Unavailable [phone] Audrey Waite PA-C Unavailable [phone] Encounter Details Date Type Department Care Team (Late st Contact Info) Description 09/24/2021 MyC Medical Advice [facility] [place] [address] [facility] [address] [place] [address] Teresita Bean, [facility] [address] [facility] [place] [address] Social History [...] How often do you attend pentecostalism or episcopal serv ices? Never 09/22/2021 Do [...] in a assisted (including now)? No 09/22/2021 [place] Depression Scale Answer Date Recorded [place] Depression Score 5 01/14/2021 Last EPDS [...] [facility] Spine and Neurosurgery 1747 [facility] 100 [place] [address] Ebony Cid, [facility] 500 [place], [place] [address] 03/27/2024 11:00 AM CDT Office Visit [facility] [place] [address] [place] [phone] Jelena David, [address] [facility] [place] [address] 04/19/2024 2:45 PM CDT Office Visit [facility] [address] [place] [phone] Audrey Waite PA-C [address], [facility] 603 [place] [address] 05/08/2024 1:30 PM CDT Office Visit [facility] [address] [place] [address] Lauren Claudio PA-C [address] [place], [place] [phone] Esha Grimm PA-C [address] [place] [address] 06/21/2024 2:00 PM SENIOR NET PROGRAMMER Office Visit [facility] Neurology [facility] - [address], [address] [place] [address] [place] [address] [address] Johnny Penn MD 6545 [place], [place] [address] Scheduled Procedures Name Priority Associated Diagnoses Date/Ti [...] Out COVID-19 05/17/2022 05/17/2022 05/17/2022 10:20 PM SENIOR NET PROGRAMMER Rule Out COVID-19 06/09/2022 06/09/2022 06/09/2022 9:35 AM SENIOR NET PROGRAMMER COVID-19 06/09/2022 06/09/2022 06/30/2022 11:4 1 PM SENIOR NET PROGRAMMER Rule Out COVID-19 11/10/2022 11/10/2022 11/11/2022 12:17 PM CDT Rule Out COVID-19 03/07/2023 03/07/2023 03/07/2023 1:20 PM CDT Rule Out COVID-19 12/26/2023 12/26/2023 12/26/2023 9:50 AM CDT Assessment Noted Time PHQ-9 Depression Total Score: 2 04/02/20 10:19 AM CDT documented as of this encounter Care Teams Meat Selector Relationship Specialty Start Date End Date Marija Edgar APRN MEDICAL SCIENCE LIAISON PCP - General Nurse Practitioner 04/30/20 04/14/23 Esha Grimm, PA-C [address] [place] [phone] PCP - General Family Medicine 05/04/23 Lita Oseguera Personal Advocate & Liaison (PAL) 02/28/20 03/27/23 Marija Edgar APRN MEDICAL SCIENCE LIAISON Assigned PCP 06/08/20 04/29/23 Mynor Broussard MD [address] [address] Assigned Surgical Provider 06/01/20 11/28/21 Keisha Dotson MD 9 [place], [place] 8930[address] Assigned Neuroscience Provider 06/04/20 04/01/23 Galo Burrell MD Assigned Heart and Vascular Provider 10/05/20 04/02/22 [facility] 3033 [place] [address] Pharmacist Pharmacist 04/17/21 Rain Galaviz PA-C [address] [facility] [place] [address] Physician Svp Group Director Dermatology 04/28/21 Summer Lara MD [address] [place], [place] 1094[address] Assigned OBGYN Provider 05/31/21 2 Tavia Wyatt MD [address] [place] [address] Dermatology 07/14/21 Johnny Murillo MD [address] [place] [address] Assigned Musculoskeletal Provider 08/30/21 03/17/22 Erica Farrell APRN MEDICAL SCIENCE LIAISON [address] [facility] [address] [place] [address] Nurse Practitioner Cardiovascular Disease 09/09/21 Teresita Bean, [facility] [address] [place] [address] Pharmacist Pharmacist 09/24/21 09/29/21 Tavia Wyatt MD Assigned Surgical Provider 11/29/21 05/07/22 Diana Desir, [facility] 30[address] [place] [address] Assigned MTM Pharmacist 01/02/22 Rich Barrett MD [address] 8350[address] Physician Ophthalmology 01/21/22 Neil Kent MD 500 [place], [place] [address] Dermatology 02/24/22 Roney Story DPM [address] [facility] [address] [place], [place] 6987[address] Assigned Musculoskeletal Provider 03/20/22 08/13/22 Erica Farrell APRN MEDICAL SCIENCE LIAISON 1700 [place] [address] Assigned Heart and Vascular Provider 04/03/22 04/16/22 Diana Desir, [facility] [address] [place], [place] 915566 Assigned MTM Pharmacist 04/07/22 Jelena David OD [address] [facility] [place] [address] Assigned Surgical Provider 05/08/22 10/08/22 Galo Burrell MD Assigned Heart and Vascular Provider 04/17/22 06/11/22 Livan Sharif MD [address] [place] [address] Cardiovascular Disease 05/14/22 Livan Sharif MD [address] [place] [address] Assigned Heart and Vascular Provider 06/12/22 07/23/22 Catherine Cm MD [address] [facility] [address] [place] [address] Cardiovascular Disease 07/21/22 Valery Veronica, PA-C 909 [place], [place] 3239[address] Physician Svp Group Director Dermatology 07/21/22 Catherine Cm MD [address] [facility] [place] [place] [address] Assigned Heart and Vascular Provider 07/24/22 11/05/22 Johnny Murillo MD [address] [place] [address] 663144 Assigned Musculoskeletal Provider 08/14/22 10/08/22 Brea Quinn APRN MEDICAL SCIENCE LIAISON [address] [place] [address] 291435 Nurse Practitioner Dermatology 09/21/22 Brea Quinn APRN MEDICAL SCIENCE LIAISON [address] [place] [address] [place] 851012 Assigned Surgical Provider 10/09/22 [place] [address] [place] [address] Assigned Musculoskeletal Provider 10/09/22 Livan Sharif MD [address], [facility] [address] [place], [place] 5[address] Assigned Heart and Vascular Provider 11/06/22 11/12/22 Catherine Cm MD [address] [place] [address] Assigned Heart and Vascular Provider 11/13/22 05/27/23 Sydnie Martinez RN Personal Advocate & Liaison (PAL) Family Medicine 03/28/23 07/31/23 Alfonso Renteria MD [address] [facility] 200 [place] [address] Assigned Neuroscience Provider 04/02/23 Cheng Todd PA-C [address] [place] [address] Assigned PCP 04/30/23 07/15/23 Radha Lomeli APRN MEDICAL SCIENCE LIAISON [address] [place] [address] Assigned Heart and Vascular Provider 05/28/23 Jelena David OD [facility] [facility] [address] Ophthalmology 06/15/23 Pao Joseph, VJ Personal Advocate & Liaison (PAL) Nurse 08/01/23 11/07/23 Esha Grimm PA-C [address] [place] [address] Assigned PCP 07/16/23 Valery Veronica PA-C [address] [place] [address] Physician Svp Group Director Dermatology 09/19/23 Rey Tay MD [address] [place] [address] MD Gastroenterology 09/20/23 Rocky Zepeda DO [address] [place] [address] Physician Gastroenterology 09/20/23 Philip Dumont MD [address] [place] [address] Physician Ophthalmology 09/22/23 Meredith Carrera PA-C [address] [place] [address] Assigned Gastroenterology Provider 11/01/23 Neil Kent MD [address] [address] Dermatology 11/02/23 [place] [address] [address] Neurological Surgery 12/26/23 Audrey Waite PA-C 500 [place] [address] Physician Svp Group Director Dermatology 02/28/24 documented as of this encounter
--- OUTSIDE RECORDS SUMMARY | 2024-03-12 19:40 | XMS_ITS | Encounter Summary ---
Author Organization [facility] Address [address] [place] [address] Care Team Providers Care Netbackup Admin Name Role Phone Lita Oseguera Unavailable Unavailable Marija Edgar APRN SQUIRREL MAN Primary Care Provider U Marija Bella APRN SQUIRREL MAN Unavailable Unavail able Mynor Broussard MD Unavailable [phone] Keisha Dotson MD Unavailable Galo Burrell MD Unavailable Unavailable Diana Desir [facility] Unavailable Rain Galaviz PA-C Unavailable Summer Lara MD Unavailable [phone] Tavia Wyatt MD Unavailable Unavailable Johnny Murillo MD Unavailable Erica Farrell APRN SQUIRREL MAN Unavailable Tavia Wyatt MD Unavailable Unavailable Diana Desir [facility] Unavailable [phone] Rich Barrett MD Unavailable [phone] Neil Kent MD Unavailable Roney StoryM Unavailable [phone] Erica Farrell APRN SQUIRREL MAN Unavailable Diana Desir [facility] Unavailable [phone] Jelena David OD Unavailable Galo Burrell MD Unavailable Unavailable Livan Sharif MD Unavailable Livan Sharif MD Unavailable IsCatherine hobbs MD Unavailable + Valery Veronica PA-C Unavailable [phone] Catherine Cm MD Unavailable + Johnny Murillo MD Unavailable [phone] Brea Quinn [employer] SQUIRREL MAN Unavailable [phone] Brea Quinn [employer] SQUIRREL MAN Unavailable [phone] Jose Francisco Johnson MD Unavailable Livan Sharif MD Unavailable + IsCatherine hobbs MD Unavailable + Sydnie Martinez RN Unavailable Unavailable Alfonso Renteria MD Unavailable [phone] Esha Grimm PA-C Primary Care Provider Cheng Todd PA-C Unavailable Radha Lomeli APRN SQUIRREL MAN Unavailable [phone] Jelena David OD Unavailable Pao Joseph RN Unavailable Unavailable Esha Grimm PA-C Unavailable [phone] Valery Veronica PA-C Unavailable [phone] Rey Tay MD Unavailable Rocky Zepeda DO Unavailable Philip Dumont MD Unavailable [phone] Meredith Carrera PA-C Unavailable Neil Kent MD Unavailable Juan Pablo Emmanuel MD Unavailable [phone] Audrey Waite PA-C Unavailable [phone] Encounter Details Date Type Department Care Team (Late st Contact Info) Description 10/17/2021 MyC Medical Advice [address] [address] Diana Desir, [facility] 30[address] [place] [address] Social History Tobacco Use Types Packs/Day Years [...] How often do you attend mandaeism or druze serv ices? Never 09/22/2021 Do [...] Answer Date Recorded PHQ-2 Score 2 09/22/2021 [facility] - Occupational [...] in a long-term (including now)? No 09/22/2021 [place] Depression Scale [...] [facility] Spine and Neurosurgery 1747 [facility] 100 [place] [address] Ebony Cid, [employer] SQUIRREL MAN 500 [place] [address] 03/27/2024 11:00 AM CDT Office Visit [facility] [place] [address] [facility] [address] [place] [phone] Jelena David, [place] 3[address] [facility] [place] [address] 04/19/2024 2:45 PM CDT Office Visit [facility] 830 [place] [phone] Audrey Waite PABaldo 420 [facility] B385, [facility] 603 [place] [address] 05/08/2024 1:30 PM CDT Office Visit [facility] [address] [place] [address] Lauren Claudio PA-C [address] [place] [address] Esha Grimm PA-C [address] [place] [address] 06/21/2024 2:00 PM FORMING MACHINE OPERATOR Office Visit [facility] Neurology [facility] [address] [place] [address], [address] [place] [phone] [place] [address] [place] [address] [place] [address] Johnny Penn MD 6545 [place], [place] [phone] Scheduled Procedures Name Priority Associated Diagnoses Date/Ti nd ESOPHAGOGASTRODUODENOSCOPY Eosinophilic esophagitis Esophageal dysphagia documented as of this encounter Visit Diagnoses Not on filedocumented in this encounter Additional Health Concerns Infection Onset Date Last Indicated Resolved Time Rule Out COVID-19 12/18/2021 12/18/2021 12/19/2021 11:34 AM CDT Rule Out COVID-19 02/24/2022 02/24/2022 02/25/2022 1:08 PM CDT Rule Out COVID-19 04/26/2022 04/26/2022 04/26/2022 6:47 AM CDT Rule Out COVID-19 05/17/2022 05/17/2022 05/17/2022 10:20 PM FORMING MACHINE OPERATOR Rule Out COVID-19 06/09/2022 06/09/2022 06/09/2022 9:35 AM FORMING MACHINE OPERATOR COVID-19 06/09/2022 06/09/2022 06/30/2022 11:4 1 PM FORMING MACHINE OPERATOR Rule Out COVID-19 11/10/2022 11/10/2022 11/11/2022 12:17 PM CDT Rule Out COVID-19 03/07/2023 03/07/2023 03/07/2023 1:20 PM CDT Rule Out COVID-19 12/26/2023 12/26/2023 12/26/2023 9:50 AM CDT Assessment Noted Time PHQ-9 Depression Total Score: 2 04/02/20 10:19 AM CDT documented as of this encounter Care Teams Netbackup Admin Relationship Specialty Start Date End Date Marija Edgar APRN SQUIRREL MAN PCP - General Nurse Practitioner 04/30/20 04/14/23 Esha Grimm PA-C [address] [place] [address] PCP - General Family Medicine 05/04/23 Lita Oseguera Personal Advocate & Liaison (PAL) 02/28/20 03/27/23 Marija Edgar APRN SQUIRREL MAN Assigned PCP 06/08/20 04/29/23 Mynor Broussard MD [address] 5249[address] Assigned Surgical Provider 06/01/20 11/28/21 Keisha Dotson MD 909 [place], [place] [address] Assigned Neuroscience Provider 06/04/20 04/01/23 Galo Burrell MD Assigned Heart and Vascular Provider 10/05/20 04/02/22 Diana Desir, [facility] 3033 [place] [address] Pharmacist Pharmacist 04/17/21 Rain Galaviz PA-C [address] [place] [address] [place] [address] Physician Bone Char Kiln Operator Dermatology 04/28/21 Summer Lara MD [address] [place] [address] Assigned OBGYN Provider 05/31/21 2 Tavia Wyatt MD [address] [place] [address] Dermatology 07/14/21 Johnny Murillo MD [address] [place] [address] Assigned Musculoskeletal Provider 08/30/21 03/17/22 Erica Farrell APRN SQUIRREL MAN 6[address] [facility] [address] [place] [address] Nurse Practitioner Cardiovascular Disease 09/09/21 Tavia Wyatt MD Assigned Surgical Provider 11/29/21 05/07/22 [facility] [address] [place] [address] Assigned MTM Pharmacist 01/02/22 Rich Barrett MD [address] [facility] 9[address] [place] [address] Physician Ophthalmology 01/21/22 Neil Kent MD 500 [place] [address] Dermatology 02/24/22 Roney Story DPM [address] [facility] [address] [place] [address] Assigned Musculoskeletal Provider 03/20/22 08/13/22 Erica Farrell APRN SQUIRREL MAN 1700 [place] [address] Assigned Heart and Vascular Provider 04/03/22 04/16/22 Diana Desir, [facility] 3033 [place] [address] Assigned MTM Pharmacist 04/07/22 Jelena David OD [address] [facility] [place] [address] Assigned Surgical Provider 05/08/22 10/08/22 Galo Burrell MD Assigned Heart and Vascular Provider 04/17/22 06/11/22 Livan Sharif MD [address] [place] [address] Cardiovascular Disease 05/14/22 Livan Sharif MD [address] [place] 1560[address] Assigned Heart and Vascular Provider 06/12/22 07/23/22 Catherine Cm MD [address] [place] [address] Cardiovascular Disease 07/21/22 Valery Veronica, PAUcheC [address] [place] [address] Physician Bone Char Kiln Operator Dermatology 07/21/22 Catherine Cm MD [address] [address] Assigned Heart and Vascular Provider 07/24/22 11/05/22 Johnny Murillo MD [address] [place] [address] Assigned Musculoskeletal Provider 08/14/22 10/08/22 Brea Quinn APRN SQUIRREL MAN [address] [place] [address] Nurse Practitioner Dermatology 09/21/22 Brea Quinn APRN SQUIRREL MAN [address] [place] [address] Assigned Surgical Provider 10/09/22 [place] [address] [address] Assigned Musculoskeletal Provider 10/09/22 Livan Sharif MD [address] [address] Assigned Heart and Vascular Provider 11/06/22 11/12/22 Catherine Cm MD [address] [place] [address] Assigned Heart and Vascular Provider 11/13/22 05/27/23 Sydnie Martinez RN Personal Advocate & Liaison (PAL) Family Medicine 03/28/23 07/31/23 Alfonso Renteria MD 5775 [facility] 200 [place] [address] Assigned Neuroscience Provider 04/02/23 Cheng Todd PA-C [address] [place] [address] [id number] Assigned PCP 04/30/23 07/15/23 Radha Lomeli APRN SQUIRREL MAN [address] [place] [address] Assigned Heart and Vascular Provider 05/28/23 Jelena David OD [address] [facility] [place] [address] Ophthalmology 06/15/23 Pao Joseph RN Personal Advocate & Liaison (PAL) Nurse 08/01/23 11/07/23 Esha Grimm PA-C [address] [place] [address] Assigned PCP 07/16/23 Valery Veronica PA-C [address] [place] [address]165 Physician Bone Char Kiln Operator Dermatology 09/19/23 Rey Tay MD [address] [place] [address] MD Gastroenterology 09/20/23 Rocky Zepeda DO 500 [place] [address] Physician Gastroenterology 09/20/23 Philip Dumont MD 516 [place] [address] Physician Ophthalmology 09/22/23 Meredith Carrera PA-C [address] [place] [address]5585 Assigned Gastroenterology Provider 11/01/23 Neil Kent MD [address] 9168[address] Dermatology 11/02/23 [place] [address] [place] [place], [place] [address] Neurological Surgery 12/26/23 Audrey Waite PA-C 500 [place] [address] Physician Bone Char Kiln Operator Dermatology 02/28/24 documented as of this encounter
--- OUTSIDE RECORDS SUMMARY | 2024-03-12 19:41 | XMS_ITS | Encounter Summary ---
Author Organization [facility] Address [address] [place] [address] Care Team Providers Care Gang Worker Name Role Phone Lita Oseguera Unavailable Unavailable Marija Edgar APRN INSTALLER METAL FLOORING Primary Care Provider Chanelle Gutierrez APRN CN Unavailab le Marija Edgar APRN INSTALLER METAL FLOORING Unavailable Unavail able Mynor Broussard MD Unavailable [phone] Keisha Dotson MD Unavailable [phone] Galo Burrell MD Unavailable Unavailable Diana Desir [facility] Unavailable [phone] Rain Galaviz PA-C Unavailable Summer Lara MD Unavailable [phone] Summer Lara MD Unavailable [phone] Summer Lara MD Unavailable [phone] Tavia Wyatt MD Unavailable Unavailable Johnny Murillo MD Unavailable Erica Farrell APRN INSTALLER METAL FLOORING Unavailable Teresita Bean [facility] Unavailable [phone] Tavia Wyatt MD Unavailable Unavailable Diana Desir [facility] Unavailable [phone] Rich Barrett MD Unavailable [phone] Neil Kent MD Unavailable Roney Story DPM Unavailable Erica Farrell NATURAL GAS INSPECTOR INSTALLER METAL FLOORING Unavailable ThangDiana [facility] Unavailable Jelena David OD Unavailable Galo Burrell MD Unavailable Unavailable HoLivan MD Unavailable Livan Sharif MD Unavailable Catherine Cm MD Unavailable + Valery Veronica PA-C Unavailable [phone] Catherine Cm MD Unavailable + Johnny Murillo MD Unavailable [phone] Brea Quinn NATURAL GAS INSPECTOR INSTALLER METAL FLOORING Unavailable [phone] Brea Quinn NATURAL GAS INSPECTOR INSTALLER METAL FLOORING Unavailable [phone] Jose Francisco Johnson MD Unavailable Livan Sharif MD Unavailable IsCatherine hobbs MD Unavailable + Sydnie Martinez RN Unavailable Unavailable Alfonso Renteria MD Unavailable Esha Grimm-C Primary Care Provider Cheng Todd PA-C Unavailable Radha Lomeli NATURAL GAS INSPECTOR INSTALLER METAL FLOORING Unavailable Jelena David OD Unavailable Pao Joseph RN Unavailable Unavailable Esha Grimm-C Unavailable [phone] Valery Veronica PA-C Unavailable Rey Tay MD Unavailable Rocky Zepeda DO Unavailable Philip Dumont MD Unavailable [phone] Meredith CarreraC Unavailable [phone] Neli Kent MD Unavailable Juan Pablo Emmanuel MD Unavailable [phone] Audrey Waite PA-C Unavailable [phone] Encounter Details Date Type Department Care Team (Late st Contact Info) Description 04/28/2021 MyC Medical Advice [address] [address] Lauren Gan, RN Social History [...] week 08/07/2020 How often do you attend [facility] or [facility]? More than 4 times [...] [facility]at ional [facility] - Occupational Stress Questionnaire Answer [...] in a custodial (including now)? No 08/11/2020 [place]ner Depression Scale Answer Date Recorded G[place]ner Depression Score 5 01/14/2021 Last EPDS Self [...] Description 03/26/2024 11:20 AM CDT Office Visit [facility] Spine and Neurosurgery [address] [place] [address] [address] [place] [phone] Ebony Cid, NATURAL GAS INSPECTOR [facility] [address] [place] [address] 03/27/2024 11:00 AM CDT Office Visit [facility] Monserrat [address] [place] [phone] Jelena David, [address] [facility] [place] [address] 04/19/2024 2:45 PM CDT Office Visit [facility] 830 [place] [phone] Audrey Waite PA-C 420 [facility] [address], [facility] 603 [place] [address] 05/08/2024 1:30 PM CDT Office Visit [facility] [address] [place] [phone] Lauren Claudio PA-C [address] [place] [address] Esha Grimm PA-C [address] [place] [address] 06/21/2024 2:00 PM INCUBATOR MACHINE OPERATOR Office Visit [facility] Neurology [address], [address] [place] [phone] [place] [address] [place] [place] [address] Johnny Penn MD 6545 [place], [place] [phone] Scheduled Procedures Name Priority Associated Diagnoses Date/Ti wa ESOPHAGOGASTRODUODENOSCOPY Eosinophilic esophagitis Esophageal dysphagia documented as of this encounter Visit Diagnoses Not on filedocumented in this encounter Additional Health Concerns Infection Onset Date Last Indicated Resolved Time Rule Out COVID-19 05/11/2021 05/11/2021 05/13/2021 10:18 AM CDT Rule Out COVID-19 07/13/2021 07/13/2021 07/14/2021 3:04 PM INCUBATOR MACHINE OPERATOR Rule Out COVID-19 07/18/2021 07/18/2021 07/20/2021 1:56 PM INCUBATOR MACHINE OPERATOR COVID-19 07/18/2021 07/18/2021 08/08/2021 11:3 9 PM INCUBATOR MACHINE OPERATOR Rule Out COVID-19 12/18/2021 12/18/2021 12/19/2021 11:34 AM CDT Rule Out COVID-19 02/24/2022 02/24/2022 02/25/2022 1:08 PM CDT Rule Out COVID-19 04/26/2022 04/26/2022 04/26/2022 6:47 AM CDT Rule Out COVID-19 05/17/2022 05/17/2022 05/17/2022 10:20 PM INCUBATOR MACHINE OPERATOR Rule Out COVID-19 06/09/2022 06/09/2022 06/09/2022 9:35 AM INCUBATOR MACHINE OPERATOR COVID-19 06/09/2022 06/09/2022 06/30/2022 11:4 1 PM INCUBATOR MACHINE OPERATOR Rule Out COVID-19 11/10/2022 11/10/2022 11/11/2022 12:17 PM CDT Rule Out COVID-19 03/07/2023 03/07/2023 03/07/2023 1:20 PM CDT Rule Out COVID-19 12/26/2023 12/26/2023 12/26/2023 9:50 AM CDT Assessment Noted Time PHQ-9 Depression Total Score: 2 04/02/20 10:19 AM CDT documented as of this encounter Care Teams Gang Worker Relationship Specialty Start Date End Date Marija Edgar APRN INSTALLER METAL FLOORING PCP - General Nurse Practitioner 04/30/20 04/14/23 Esha Grimm PA-C [address] [place] [address] PCP - General Family Medicine 05/04/23 Lita Oseguera Personal Advocate & Liaison (PAL) 02/28/20 03/27/23 Chanelle Mccann APRN CNM [address] [place] [address] Assigned OBGYN Provider 05/02/2005/09 Marija Edgar APRN INSTALLER METAL FLOORING Assigned PCP 06/08/20 04/29/23 Mynor Broussard MD 6363 [facility] 500 [place] [address] Assigned Surgical Provider 06/01/20 11/28/21 Keisha Dotson MD 909 [place] [address] Assigned Neuroscience Provider 06/04/20 04/01/23 Galo Burrell MD Assigned Heart and Vascular Provider 10/05/20 04/02/22 [facility] 3033 [place] [address] Pharmacist Pharmacist 04/17/21 Rain Galaviz PA-C [address] [facility] [address] [facility] [place] [address] Physician Plow Shaker Dermatology 04/28/21 Summer Lara MD [address] [place] [address] Assigned OBGYN Provider 05/10/2105/23 Summer Lara MD [address] [place] [address] Assigned OBGYN Provider 05/31/21 2 Summre Lara MD [address] [place] [address] Assigned OBGYN Provider 05/24/2105/30 Tavia Wyatt MD [address] [place] [address] Dermatology 07/14/21 Johnny Murillo MD [address] [place] [address] Assigned Musculoskeletal Provider 08/30/21 03/17/22 Erica Farrell APRN INSTALLER METAL FLOORING [address] [facility] [address] [place] [address] Nurse Practitioner Cardiovascular Disease 09/09/21 [facility] 1440 [facility] [address] Pharmacist Pharmacist 09/24/21 09/29/21 Tavia Wyatt MD Assigned Surgical Provider 11/29/21 05/07/22 Diana Desir, [facility] 3033 [place] [address] Assigned MTM Pharmacist 01/02/22 Rich Barrett MD 516 [facility] 9A [place], [place] 505[address] Physician Ophthalmology 01/21/22 Neil Kent MD [address] [place] [address] Dermatology 02/24/22 Roney Story DPM [address] [facility] [address] [place] [address] Assigned Musculoskeletal Provider 03/20/22 08/13/22 Erica Farrell APRN INSTALLER METAL FLOORING 1700 [place] [address] Assigned Heart and Vascular Provider 04/03/22 04/16/22 Diana Desir, [facility] 3033 [place], [place] 469006 Assigned MTM Pharmacist 04/07/22 Jelena David OD [address] [facility] [place] [address] Assigned Surgical Provider 05/08/22 10/08/22 Galo Burrell MD Assigned Heart and Vascular Provider 04/17/22 06/11/22 Livan Sharif MD [address] [facility]00 [place] [address] Cardiovascular Disease 05/14/22 Livan Sharif MD [address] [facility] [place] [address] Assigned Heart and Vascular Provider 06/12/22 07/23/22 Catherine Cm MD [address] [place], [place] 632[address] Cardiovascular Disease 07/21/22 Valery Veronica, PAUcheC [address] [place] [address] Physician Plow Shaker Dermatology 07/21/22 Catherine Cm MD [address] [place] [address]2700 [place] [address] Assigned Heart and Vascular Provider 07/24/22 11/05/22 Johnny Murillo MD [address] [place] [address] Assigned Musculoskeletal Provider 08/14/22 10/08/22 Brea Quinn APRN INSTALLER METAL FLOORING [address] [place] [address] 451585 Nurse Practitioner Dermatology 09/21/22 Brea Quinn APRN INSTALLER METAL FLOORING [address] [place] [address] 909652 Assigned Surgical Provider 10/09/22 [place] [address] [address] Assigned Musculoskeletal Provider 10/09/22 Livan Sharif MD [address] [place] [phone] [place] [address] Assigned Heart and Vascular Provider 11/06/22 11/12/22 Catherine Cm MD [address] [place] 0262700 [place] 022325 Assigned Heart and Vascular Provider 11/13/22 05/27/23 Sydnie Martinez RN Personal Advocate & Liaison (PAL) Family Medicine 03/28/23 07/31/23 Alfonso Renteria MD 5775 [facility] [address] 200 [place] [address] Assigned Neuroscience Provider 04/02/23 Cheng Todd PA-C [address] [place] [address] Assigned PCP 04/30/23 07/15/23 Radha Lomeli APRN INSTALLER METAL FLOORING 6[address] [facility] [address] [place] [address] Assigned Heart and Vascular Provider 05/28/23 Jelena David OD [facility] [facility] [place] [address] Ophthalmology 06/15/23 Pao Joseph, VJ Personal Advocate & Liaison (PAL) Nurse 08/01/23 11/07/23 Esha Grimm PA-C [address] [place] [address] Assigned PCP 07/16/23 Valery Veronica PA-C [address] [place] [address] Physician Plow Shaker Dermatology 09/19/23 Rey Tay MD [address] [place] [address] 163895 Gastroenterology 09/20/23 Rocky Zepeda DO [address] [place] [address] Physician Gastroenterology 09/20/23 Philip Dumont MD [address] [place] [address] Physician Ophthalmology 09/22/23 Meredith Carrera PA-C [address] [place] [address] Assigned Gastroenterology Provider 11/01/23 Neil Kent MD [address] [place] [address] 109800 MD Dermatology 11/02/23 [place] [address] 593897 Neurological Surgery 12/26/23 Audrey Waite PA-C 500 [place], [place] 682265 Physician Plow Shaker Dermatology 02/28/24 documented as of this encounter
--- OUTSIDE RECORDS SUMMARY | 2024-03-12 19:41 | XMS_ITS | Encounter Summary ---
Author Organization [facility] Address [address] [place] [address] Care Team Providers Care Drop Wirer Name Role Phone Lita Oseguera Unavailable Unavailable Marija Edgar APRN COSMETOLOGY TEACHER Primary Care Provider U Marija Bella APRN COSMETOLOGY TEACHER Unavailable Unavail able Mynor Broussard MD Unavailable [phone] Keisha Dotson MD Unavailable [phone] Galo Burrell MD Unavailable Unavailable Diana Desir [facility] Unavailable [phone] Rain Galaviz PA-C Unavailable [phone] Summer Lara MD Unavailable [phone] Tavia Wyatt MD Unavailable Unavailable Johnny Murillo MD Unavailable Erica Farrell APRN COSMETOLOGY TEACHER Unavailable Teresita Bean [facility] Unavailable Tavia Wyatt MD Unavailable Unavailable Diana Desir [facility] Unavailable [phone] Rich Barrett MD Unavailable Neil Kent MD Unavailable Roney Story DPM Unavailable [phone] Erica Farrell APRN COSMETOLOGY TEACHER Unavailable + Diana Desir [facility] Unavailable Jelena David OD Unavailable Galo Burrell MD Unavailable Unavailable Livan Sharif MD Unavailable Livan Sharif MD Unavailable IsCatherine hobbs MD Unavailable + Valery Veronica PA-C Unavailable [phone] Catherine Cm MD Unavailable + Johnny Murillo MD Unavailable [phone] Brea Quinn DOCK SUPERVISOR COSMETOLOGY TEACHER Unavailable [phone] Brea Quinn DOCK SUPERVISOR COSMETOLOGY TEACHER Unavailable [phone] Jose Francisco Johnson MD Unavailable Livan Sharif MD Unavailable + IsCatherine hobbs MD Unavailable + Sydnie Martinez RN Unavailable Unavailable Alfonso Renteria MD Unavailable Esha Grimm PA-C Primary Care Provider Cheng Todd PA-C Unavailable Radha Lomeli DOCK SUPERVISOR COSMETOLOGY TEACHER Unavailable [phone] Jelena David OD Unavailable [phone] Pao Joseph RN Unavailable Unavailable Esha Grimm-C Unavailable [phone] Valery Veronica PA-C Unavailable [phone] Rey Tay MD Unavailable Rocky Zepeda DO Unavailable Philip Dumont MD Unavailable [phone] AffeldtMeredith PA-C Unavailable [phone] Neil Kent MD Unavailable Juan Pablo Emmanuel MD Unavailable [phone] Audrey Waite PA-C Unavailable [phone] Encounter Details Date Type Department Care Team (Late st Contact Info) Description 07/14/2021 MyC Medical Advice [address] [address] Lauren Gan, RN Social History [...] 0 04/02/2021 [facility] of Occupat ional [facility] - Occupational Stress Questionnaire Answer [...] in a fpc (including now)? No 08/11/2020 [place] Depression Scale Answer Date Recorded [place] Depression Score 5 01/14/2021 Last EPDS Self [...] Coronavirus / COVID-19? Yes 07/15/2021 12:15 PM LOT TECHNICIAN documented as of this encounter Plan of Treatment Upcoming Encounters Date Type Department Care Team (Late st Contact Info) Description 03/26/2024 11:20 AM CDT Office Visit [facility] Spine and Neurosurgery [address] [facility] 100 [place] [address] Ebony Cid, DOCK SUPERVISOR COSMETOLOGY TEACHER 500 [place], [place] [address]335 03/27/2024 11:00 AM CDT Office Visit [facility] Monserrat [address] [facility] [address] [place] [phone] Jelena David, OD [address] [facility] [place] [address] 04/19/2024 2:45 PM CDT Office Visit [facility] 830 [place] [address] Audrey Waite, PABaldo 420 [facility] [address], [facility] 603 [place] [address] 05/08/2024 1:30 PM CDT Office Visit [facility] [address] [place] [address] Lauren Claudio PA-C [address] [place] [address] Esha Grimm PA-C [address] [place] [address] 06/21/2024 2:00 PM LOT TECHNICIAN Office Visit [facility] Neurology [facility] [address] [place] [address], [address] [place] [address] [place] [address] [place] [address] Johnny Penn MD 6596 [place] [address] Scheduled Procedures Name Priority Associated Diagnoses Date/Ti hi ESOPHAGOGASTRODUODENOSCOPY Eosinophilic esophagitis Esophageal dysphagia documented as of this encounter Visit Diagnoses Not on filedocumented in this encounter Additional Health Concerns Infection Onset Date Last Indicated Resolved Time Rule Out COVID-19 07/13/2021 07/13/2021 07/14/2021 3:04 PM LOT TECHNICIAN Rule Out COVID-19 07/18/2021 07/18/2021 07/20/2021 1:56 PM LOT TECHNICIAN COVID-19 07/18/2021 07/18/2021 08/08/2021 11:3 9 PM LOT TECHNICIAN Rule Out COVID-19 12/18/2021 12/18/2021 12/19/2021 11:34 AM CDT Rule Out COVID-19 02/24/2022 02/24/2022 02/25/2022 1:08 PM CDT Rule Out COVID-19 04/26/2022 04/26/2022 04/26/2022 6:47 AM CDT Rule Out COVID-19 05/17/2022 05/17/2022 05/17/2022 10:20 PM LOT TECHNICIAN Rule Out COVID-19 06/09/2022 06/09/2022 06/09/2022 9:35 AM LOT TECHNICIAN COVID-19 06/09/2022 06/09/2022 06/30/2022 11:4 1 PM LOT TECHNICIAN Rule Out COVID-19 11/10/2022 11/10/2022 11/11/2022 12:17 PM CDT Rule Out COVID-19 03/07/2023 03/07/2023 03/07/2023 1:20 PM CDT Rule Out COVID-19 12/26/2023 12/26/2023 12/26/2023 9:50 AM CDT Assessment Noted Time PHQ-9 Depression Total Score: 2 04/02/20 10:19 AM CDT documented as of this encounter Care Teams Drop Wirer Relationship Specialty Start Date End Date Marija Edgar APRN COSMETOLOGY TEACHER PCP - General Nurse Practitioner 04/30/20 04/14/23 Esha Grimm PAUcheC [address] [place] [phone] PCP - General Family Medicine 05/04/23 Lita Oseguera Personal Advocate & Liaison (PAL) 02/28/20 03/27/23 Marija Edgar APRN COSMETOLOGY TEACHER Assigned PCP 06/08/20 04/29/23 Mynor Broussard MD [address] [address] Assigned Surgical Provider 06/01/20 11/28/21 Keisha Dotson MD 909 [place] [address] Assigned Neuroscience Provider 06/04/20 04/01/23 Galo Burrell MD Assigned Heart and Vascular Provider 10/05/20 04/02/22 Diana Desir, [facility] [address] [place] [address] Pharmacist Pharmacist 04/17/21 Rain Galaviz PA-C [address] [place] [address] [place] [address] Physician Endless Track Vehicle Mechanic Dermatology 04/28/21 Summer Lara MD [address] [place] [address] Assigned OBGYN Provider 05/31/21 2 Tavia Wyatt MD [address] [place] [address] Dermatology 07/14/21 Johnny Murillo MD [address] [place] [address] Assigned Musculoskeletal Provider 08/30/21 03/17/22 Erica Farrell APRN COSMETOLOGY TEACHER 6[address] [facility] [address] [place] [address] Nurse Practitioner Cardiovascular Disease 09/09/21 Teresita Bean, [facility] [address] [place] [address] Pharmacist Pharmacist 09/24/21 09/29/21 Tavia Wyatt MD Assigned Surgical Provider 11/29/21 05/07/22 Diana Desir, [facility] 3033 [place] [address] Assigned MTM Pharmacist 01/02/22 Rich Barrett MD [address] 6[address] Physician Ophthalmology 01/21/22 Neil Kent MD 500 [place], [place] 8[address]25 Dermatology 02/24/22 Roney Story DPM [address] [facility] [address] [place] [address] Assigned Musculoskeletal Provider 03/20/22 08/13/22 Erica Farrell APRN COSMETOLOGY TEACHER 1700 [place] [address] Assigned Heart and Vascular Provider 04/03/22 04/16/22 Diana Desir, [facility] 3033 [place] [address] Assigned MTM Pharmacist 04/07/22 Jelena David OD [address] [facility] [place] [address] Assigned Surgical Provider 05/08/22 10/08/22 Galo Burrell MD Assigned Heart and Vascular Provider 04/17/22 06/11/22 Livan Sharif MD [address] [place] [address] Cardiovascular Disease 05/14/22 Livan Sharif MD [address] [place] [address] Assigned Heart and Vascular Provider 06/12/22 07/23/22 Catherine Cm MD [address] [place] [address] Cardiovascular Disease 07/21/22 Valery Veronica, PA-C [address] [place] [address] 376455 Physician Endless Track Vehicle Mechanic Dermatology 07/21/22 Catherine Cm MD [address] [place] 0717[address] Assigned Heart and Vascular Provider 07/24/22 11/05/22 Johnny Murillo MD [address] [place] [address] 202974 Assigned Musculoskeletal Provider 08/14/22 10/08/22 Brea Quinn APRN COSMETOLOGY TEACHER [address] [place] [address] 855175 Nurse Practitioner Dermatology 09/21/22 Brea Quinn APRN COSMETOLOGY TEACHER [address] [place] [address] [place], [place] 690172 Assigned Surgical Provider 10/09/22 [place] [address] [facility] [facility] 300 [place] [address] Assigned Musculoskeletal Provider 10/09/22 Livan Sharif MD [address], [facility] [address] [place] [address] Assigned Heart and Vascular Provider 11/06/22 11/12/22 Catherine Cm MD [address] [place] 622505 Assigned Heart and Vascular Provider 11/13/22 05/27/23 Sydnie Martinez RN Personal Advocate & Liaison (PAL) Family Medicine 03/28/23 07/31/23 Alfonso Renteria MD 5775 [facility] 200 [place] [address] Assigned Neuroscience Provider 04/02/23 Cheng Todd PA-C [address] [place] [address] Assigned PCP 04/30/23 07/15/23 Radha Lomeli, ARLENE COSMETOLOGY TEACHER [address] [place] [address] Assigned Heart and Vascular Provider 05/28/23 Jelena David OD [address] [facility] [place] [address] Ophthalmology 06/15/23 Pao Joseph RN Personal Advocate & Liaison (PAL) Nurse 08/01/23 11/07/23 Esha Grimm PA-C [address] [place] [address] Assigned PCP 07/16/23 Valery Veronica PA-C [address] [place] [address] 955975 Physician Endless Track Vehicle Mechanic Dermatology 09/19/23 Rey Tay MD [address] [place] [address] 975825 MD Gastroenterology 09/20/23 Rocky Zepeda DO [address] [place] [address] 706745 Physician Gastroenterology 09/20/23 Philip Dumont MD [address] [place] [address] 114825 Physician Ophthalmology 09/22/23 Meredith [place]rera PA-C [address] [place] [address] Assigned Gastroenterology Provider 11/01/23 Neil Kent MD [address] [address] Dermatology 11/02/23 [place] [address] [place] [address] Neurological Surgery 12/26/23 Audrey Waite PA-C [address] [place] [address] Physician Endless Track Vehicle Mechanic Dermatology 02/28/24 documented as of this encounter
--- OUTSIDE RECORDS SUMMARY | 2024-03-12 19:41 | XMS_ITS | Encounter Summary ---
Author Organization [place] Address [address] [place] [address] Care Team Providers Care Tag And Label Cutter Name Role Phone Lita Oseguera Unavailable Unavailable Marija Edgar APRN YOUTH COURT JUDGE Primary Care Provider Chanelle Gutierrez APRN CN Unavailab le Marija Edgar APRN YOUTH COURT JUDGE Unavailable Unavail able Mynor Broussard MD Unavailable [phone] Keisha Dotson MD Unavailable [phone] Galo Burrell MD Unavailable Unavailable Diana Desir [facility] Unavailable Rain Galaviz PA-C Unavailable Summer Lara MD Unavailable [phone] Summer Lara MD Unavailable [phone] Summer Lara MD Unavailable [phone] Tavia Wyatt MD Unavailable Unavailable Johnny Murillo MD Unavailable Erica Farrell APRN YOUTH COURT JUDGE Unavailable Teresita Bean [facility] Unavailable Tavia Wyatt MD Unavailable Unavailable Diana Desir [facility] Unavailable [phone] Rich Barrett MD Unavailable [phone] Neil Kent MD Unavailable Roney Story DPM Unavailable Erica Farrell PROPOSAL EDITOR YOUTH COURT JUDGE Unavailable ThangDiana [facility] Unavailable Jelena David OD Unavailable Galo Burrell MD Unavailable Unavailable HoLivan MD Unavailable Livan Sharif MD Unavailable Catherine Cm MD Unavailable + Valery Veronica PA-C Unavailable [phone] Catherine Cm MD Unavailable + Johnny Murillo MD Unavailable [phone] Brea Quinn PROPOSAL EDITOR YOUTH COURT JUDGE Unavailable [phone] Brea Quinn PROPOSAL EDITOR YOUTH COURT JUDGE Unavailable [phone] Jose Francisco Johnson MD Unavailable Livan Sharif MD Unavailable IsCatherine hobbs MD Unavailable + Sydnie Martinez RN Unavailable Unavailable Alfonso Renteria MD Unavailable Esha Grimm-C Primary Care Provider Cheng Todd PA-C Unavailable Radha Lomeli PROPOSAL EDITOR YOUTH COURT JUDGE Unavailable Jelena David OD Unavailable Pao Joseph RN Unavailable Unavailable Esha Grimm-C Unavailable [phone] Valery Veronica PA-C Unavailable Rey Tay MD Unavailable Rocky Zepeda DO Unavailable Philip Dumont MD Unavailable [phone] Meredith CarreraC Unavailable [phone] Neil Kent MD Unavailable Juan Pablo Emmanuel MD Unavailable [phone] Audrey Waite PA-C Unavailable [phone] Encounter Details Date Type Department Care Team (Late st Contact Info) Description 04/28/2021 MyC Medical Advice [address] [address] Marija Edgar APRN CNP Social [...] you attend [facility] or restoration services? More than 4 times per year [...] in a mcc (including now)? No 08/11/2020 [place] Depression Scale Answer Date Recorded [place] Depression Score 5 01/14/2021 Last EPDS Self [...] [facility] Spine and Neurosurgery [address] [facility] [address] [place] [phone] Ebony Cid, ARLENE YOUTH COURT JUDGE 500 [place] [address] 03/27/2024 11:00 AM CDT Office Visit [facility] Monserrat [address] [place] [address] Jelena David, [place] 3305 [facility] [place] [address] 04/19/2024 2:45 PM CDT Office Visit [facility] 830 [place] [phone] Audrey Waite PA-C 420 [facility] [address]385, [facility] 603 [place] [address] 05/08/2024 1:30 PM CDT Office Visit [facility] [address] [place] [address] Lauren Claudio PA-C [address] [place] [address] Esha Grimm PA-C [address] [place] [address] 06/21/2024 2:00 PM POST DOC FELLOWSHIP Office Visit [facility] Neurology [facility] - [address], [address] [place] [phone] [place] [address] [place] [address] Johnny Penn MD 6545 [place], [place] [phone] Scheduled Procedures Name Priority Associated Diagnoses Date/Ti md ESOPHAGOGASTRODUODENOSCOPY Eosinophilic esophagitis Esophageal dysphagia documented as of this encounter Visit Diagnoses Not on filedocumented in this encounter Additional Health Concerns Infection Onset Date Last Indicated Resolved Time Rule Out COVID-19 05/11/2021 05/11/2021 05/13/2021 10:18 AM CDT Rule Out COVID-19 07/13/2021 07/13/2021 07/14/2021 3:04 PM POST DOC FELLOWSHIP Rule Out COVID-19 07/18/2021 07/18/2021 07/20/2021 1:56 PM POST DOC FELLOWSHIP COVID-19 07/18/2021 07/18/2021 08/08/2021 11:3 9 PM POST DOC FELLOWSHIP Rule Out COVID-19 12/18/2021 12/18/2021 12/19/2021 11:34 AM CDT Rule Out COVID-19 02/24/2022 02/24/2022 02/25/2022 1:08 PM CDT Rule Out COVID-19 04/26/2022 04/26/2022 04/26/2022 6:47 AM CDT Rule Out COVID-19 05/17/2022 05/17/2022 05/17/2022 10:20 PM POST DOC FELLOWSHIP Rule Out COVID-19 06/09/2022 06/09/2022 06/09/2022 9:35 AM POST DOC FELLOWSHIP COVID-19 06/09/2022 06/09/2022 06/30/2022 11:4 1 PM POST DOC FELLOWSHIP Rule Out COVID-19 11/10/2022 11/10/2022 11/11/2022 12:17 PM CDT Rule Out COVID-19 03/07/2023 03/07/2023 03/07/2023 1:20 PM CDT Rule Out COVID-19 12/26/2023 12/26/2023 12/26/2023 9:50 AM CDT Assessment Noted Time PHQ-9 Depression Total Score: 2 04/02/20 21 10:19 AM CDT documented as of this encounter Care Teams Tag And Label Cutter Relationship Specialty Start Date End Date Marija Edgar APRN YOUTH COURT JUDGE PCP - General Nurse Practitioner 04/30/20 04/14/23 Esha Grimm PA-C [address] [place] [phone] PCP - General Family Medicine 05/04/23 Lita Oseguera Personal Advocate & Liaison (PAL) 02/28/20 03/27/23 Chanelle Mccann APRN CNM [address] [place] [address] Assigned OBGYN Provider 05/02/2005/09 Marija Edgar APRN CNP Assigned PCP 06/08/20 04/29/23 Mynor Broussard MD 6363 [facility] 500 [place] [address] Assigned Surgical Provider 06/01/20 11/28/21 Keisha Dotson MD 909 [place] [address] Assigned Neuroscience Provider 06/04/20 04/01/23 Galo Burrell MD Assigned Heart and Vascular Provider 10/05/20 04/02/22 [facility] 3033 [place] [address] Pharmacist Pharmacist 04/17/21 Rain Galaviz PA-C 5 [facility] [address] [place] [address] Physician Prevention Rn Dermatology 04/28/21 Summer Lara MD 606 [facility] [place] [address] Assigned OBGYN Provider 05/10/2105/23 Summer Lara MD [address] [facility] [place] [address] Assigned OBGYN Provider 05/31/21 2 Summer Lara MD [address] [place] [address] Assigned OBGYN Provider 05/24/2105/30 Tavia Wyatt MD [address] [place] [address] Dermatology 07/14/21 Johnny Murillo MD [address] [place] [address] Assigned Musculoskeletal Provider 08/30/21 03/17/[address] JUDGE 6405 [facility] [address] [place] [address] Nurse Practitioner Cardiovascular Disease 09/09/21 Teresita Bean, [facility] [address] [place] [address] Pharmacist Pharmacist 09/24/21 09/29/21 Tavia Wyatt MD Assigned Surgical Provider 11/29/21 05/07/22 [facility] 3033 [place] [address] Assigned MTM Pharmacist 01/02/22 Rich Barrett MD 516 [facility] 9A [place], [place] [address] Physician Ophthalmology 01/21/22 Neil Kent MD [address] [place] [address] Dermatology 02/24/22 Roney Story [place]PM [address] [place] [address] Assigned Musculoskeletal Provider 03/20/22 08/13/[address]N YOUTH [address] JUDGE 1700 [place] [address] Assigned Heart and Vascular Provider 04/03/22 04/16/22 Diana Desir, [facility] 3033 [place], [place] 17[address] Assigned MTM Pharmacist 04/07/22 Jelena David OD [address] [facility] [place] [address] Assigned Surgical Provider 05/08/22 10/08/22 Galo Burrell MD Assigned Heart and Vascular Provider 04/17/22 06/11/22 Livan Sharif MD [address] [facility]00 [place] [address] Cardiovascular Disease 05/14/22 Livan Sharif MD [address] [place] [address] Assigned Heart and Vascular Provider 06/12/22 07/23/22 Catherine Cm MD [address] [place] [address] Cardiovascular Disease 07/21/22 Valery Veronica, PAUcheC [address] [place] [address] Physician Prevention Rn Dermatology 07/21/22 Catherine Cm MD [address] [facility] [place] [address] Assigned Heart and Vascular Provider 07/24/22 11/05/22 Johnny Murillo MD [address] [place] [address] Assigned Musculoskeletal Provider 08/14/22 10/08/22 Brea Quinn APRN YOUTH COURT JUDGE [address] [place] [address] Nurse Practitioner Dermatology 09/21/22 Brea Quinn APRN YOUTH COURT JUDGE [address] [place] [address] Assigned Surgical Provider 10/09/22 [place] [address] [place] [address] Assigned Musculoskeletal Provider 10/09/22 Livan Sharif MD [address] [address]200 [place] [address] Assigned Heart and Vascular Provider 11/06/22 11/12/22 Catherine Cm MD [address] [facility] [place] 691215 Assigned Heart and Vascular Provider 11/13/22 05/27/23 Sydnie Martinez, RN Personal Advocate & Liaison (PAL) Family Medicine 03/28/23 07/31/23 Alfonso Renteria MD 5775 [facility] 200 [place] [address] Assigned Neuroscience Provider 04/02/23 Cheng Todd PA-C [address] [place] [address] [phone] Assigned PCP 04/30/23 07/15/[address]omeli [address]N YOUTH COURT JUDGE [address] [place] [id number] [place] [address] Assigned Heart and Vascular Provider 05/28/23 Jelena David OD [address] [facility] [place] [address] Ophthalmology 06/15/23 Pao Joseph RN Personal Advocate & Liaison (PAL) Nurse 08/01/23 11/07/23 Esha Grimm PA-C [address] [place] [address] Assigned PCP 07/16/23 Valery Veronica PA-C [address] [place] [address] Physician Prevention Rn Dermatology 09/19/23 Rey Tay MD [address] [place] [address] 963065 Gastroenterology 09/20/23 Rocky Zepeda DO [address] [place] [address] 610826 Physician Gastroenterology 09/20/23 Philip Dumont MD [address] [place] [address] Physician Ophthalmology 09/22/23 Meredith Carrera PA-C [address] [place] [address] 358655 Assigned Gastroenterology Provider 11/01/23 Neil Kent MD [address] [place] [address] 758920 Dermatology 11/02/23 [place] [address] [place] [address] Neurological Surgery 12/26/23 Audrey Waite PA-C [address] [place] [address] 635965 Physician Prevention Rn Dermatology 02/28/24 documented as of this encounter
--- OUTSIDE RECORDS SUMMARY | 2024-03-12 19:41 | XMS_ITS | Encounter Summary ---
Author Organization [place] Address [address] [place] [address] Care Team Providers Care Veneer Taper Name Role Phone Lita Oseguera Unavailable Unavailable Marija Edgar APRN EDGE TRIMMER MECHANIC Primary Care Provider U Marija Bella APRN EDGE TRIMMER MECHANIC Unavailable Unavail able Mynor Broussard MD Unavailable [phone] Keisha Dotson MD Unavailable Galo Burrell MD Unavailable Unavailable Diana Desir [facility] Unavailable [phone] Rain Galaviz PA-C Unavailable Summer Lara MD Unavailable [phone] Tavia Wyatt MD Unavailable Unavailable Johnny Murillo MD Unavailable Erica Farrell APRN EDGE TRIMMER MECHANIC Unavailable Teresita Bean [facility] Unavailable Tavia Wyatt MD Unavailable Unavailable Diana Desir [facility] Unavailable [phone] Rich Barrett MD Unavailable Neil [place] MD Unavailable Roney Story DPM Unavailable [phone] Erica Farrell APRN EDGE TRIMMER MECHANIC Unavailable + Diana Desir [facility] Unavailable Jelena David OD Unavailable [phone] Galo Burrell MD Unavailable Unavailable Livan Sharif MD Unavailable Livan Sharif MD Unavailable IsCathernie hobbs MD Unavailable + Valery Veronica PA-C Unavailable [phone] Catherine Cm MD Unavailable + Johnny Murillo MD Unavailable [phone] Brea Quinn LETTERER EDGE TRIMMER MECHANIC Unavailable [phone] Brea Quinn LETTERER EDGE TRIMMER MECHANIC Unavailable [phone] Jose Francisco Johnson MD Unavailable Livan Sharif MD Unavailable + IsCatherine hobbs MD Unavailable + Sydnie Martinez RN Unavailable Unavailable Alfonso Renteria MD Unavailable Esah Grimm PA-C Primary Care Provider Cheng Todd PA-C Unavailable Radha Lomeli LETTERER EDGE TRIMMER MECHANIC Unavailable [phone] Jelena David OD Unavailable [phone] Pao Joseph RN Unavailable Unavailable Esha Grimm-C Unavailable [phone] Valery Veronica PA-C Unavailable [phone] Rey Tay MD Unavailable Rocky Zepeda DO Unavailable Philip Dumont MD Unavailable [phone] Meredith Carrera PA-C Unavailable [phone] Neil [place] MD Unavailable Juan Pablo Emmanuel MD Unavailable Audrey Waite PA-C Unavailable [phone] Encounter Details Date Type Department Care Team (Late st Contact Info) Description 06/01/2021 MyC Medical Advice [address] [address] Diana Desir, [facility] 3036 [place] [address] Social History Tobacco Use Types [...] do you attend [facility] or [facility] services? More than 4 times [...] Answer Date Recorded PHQ-2 Score 0 04/02/2021 [facility] [...] in a mcc (including now)? No 08/11/2020 [place] Depression Scale Answer Date Recorded [place] Depression Score 5 01/14/2021 Last EPDS Self [...] Telephone Encounter - Diana Desir RPH - 06/01/2021 3:43 PM CST Called patient and reassured 50 mg dose increase in sertraline is typical and okay to do. She will closely monitor changes in mental health over next couple weeks. Answered all questions. Diana Deisr, PharmD Medication Therapy Management Provider, [facility] Pager: [phone] STRIAL SEAMSTRESS documented in this encounter Plan of Treatment Upcoming Encounters Date Type Department Care Team (Late st Contact Info) Description 03/26/2024 11:20 AM CDT Office Visit [facility] Spine and Neurosurgery [address] [place] [address] Ebony Cid, [facility] 500 [place] [address] 03/27/2024 11:00 AM CDT [facility] [address] [facility] [address] [facility] [address] [place] [address] Jelena Davide, [place] 3305 [facility] [place] [address] 04/19/2024 2:45 PM CDT Office Visit [facility] 830 [place] [phone] Audrey Waite PA-C 420 [facility] [address]385, [facility] 603 [place], [place] 3[address] 05/08/2024 1:30 PM CDT Office Visit [facility] [address] [place] [phone] Lauren Claudio PA-C [address] [place], [place] [phone] Esha Grimm PA-C [address] [place] [phone] 06/21/2024 2:00 PM INDUSTRIAL SEAMSTRESS Office Visit [facility] Neurology [facility] [address] [place] [address], [address] [place] [phone] [place] [address] [place] [address] Johnny Penn MD 3500 [place], [place] [phone] Scheduled Procedures Name Priority Associated Diagnoses Date/Ti me ESOPHAGOGASTRODUODENOSCOPY Eosinophilic esophagitis Esophageal dysphagia documented as of this encounter Visit Diagnoses Not on filedocumented in this encounter Additional Health Concerns Infection Onset Date Last Indicated Resolved Time Rule Out COVID-19 07/13/2021 07/13/2021 07/14/2021 3:04 PM INDUSTRIAL SEAMSTRESS Rule Out COVID-19 07/18/2021 07/18/2021 07/20/2021 1:56 PM INDUSTRIAL SEAMSTRESS COVID-19 07/18/2021 07/18/2021 08/08/2021 11:3 9 PM INDUSTRIAL SEAMSTRESS Rule Out COVID-19 12/18/2021 12/18/2021 12/19/2021 11:34 AM CDT Rule Out COVID-19 02/24/2022 02/24/2022 02/25/2022 1:08 PM CDT Rule Out COVID-19 04/26/2022 04/26/2022 04/26/2022 6:47 AM CDT Rule Out COVID-19 05/17/2022 05/17/2022 05/17/2022 10:20 PM INDUSTRIAL SEAMSTRESS Rule Out COVID-19 06/09/2022 06/09/2022 06/09/2022 9:35 AM INDUSTRIAL SEAMSTRESS COVID-19 06/09/2022 06/09/2022 06/30/2022 11:4 1 PM INDUSTRIAL SEAMSTRESS Rule Out COVID-19 11/10/2022 11/10/2022 11/11/2022 12:17 PM CDT Rule Out COVID-19 03/07/2023 03/07/2023 03/07/2023 1:20 PM CDT Rule Out COVID-19 12/26/2023 12/26/2023 12/26/2023 9:50 AM CDT Assessment Noted Time PHQ-9 Depression Total Score: 2 04/02/20 10:19 AM CDT documented as of this encounter Care Teams Veneer Taper Relationship Specialty Start Date End Date Marija Edgar APRN CNP PCP - General Nurse Practitioner 04/30/20 04/14/23 Esha Grimm PA-C [address] [place] [address] PCP - General Family Medicine 05/04/23 Lita Oseguera Personal Advocate & Liaison (PAL) 02/28/20 03/27/23 Marija Edgar APRN EDGE TRIMMER MECHANIC Assigned PCP 06/08/20 04/29/23 Mynor Broussard MD 6363 [facility] 500 [place] [address] Assigned Surgical Provider 06/01/20 11/28/21 Keisha Dotson MD 909 [place] [address] Assigned Neuroscience Provider 06/04/20 04/01/23 Galo Burrell MD Assigned Heart and Vascular Provider 10/05/20 04/02/22 [facility] [address] [place] [address] Pharmacist Pharmacist 04/17/21 Rain Galaviz PA-C [address] [facility] [address] [place] [address] Physician Labor Relations Or Personnel Negotiator Dermatology 04/28/21 Summer Lara MD [address] [place] [address] Assigned OBGYN Provider 05/31/21 2 Tavia Wyatt MD [address] [place] [address] Dermatology 07/14/21 Johnny Murillo MD [address] [place] [address] Assigned Musculoskeletal Provider 08/30/21 03/17/22 Erica Farrell APRN EDGE TRIMMER MECHANIC [address] [facility] [address] [address] [place] [address] Nurse Practitioner Cardiovascular Disease 09/09/21 Teresita Bean, [facility] [address] [place] [phone] Pharmacist Pharmacist 09/24/21 09/29/21 Tavia Wyatt MD Assigned Surgical Provider 11/29/21 05/07/22 [facility] 3033 [place] [address] Assigned MTM Pharmacist 01/02/22 Rich Barrett MD [address] [address] Physician Ophthalmology 01/21/22 Neil Kent MD 500 [place], [place] [address] Dermatology 02/24/22 [place] D[place] [address] [facility] [address] [place] [address] Assigned Musculoskeletal Provider 03/20/22 08/13/22 Erica Farrell APRN EDGE TRIMMER MECHANIC 1700 [place] [address] Assigned Heart and Vascular Provider 04/03/22 04/16/22 Diana Desir, [facility] [address] [place], [place] 7[address] Assigned MTM Pharmacist 04/07/22 Jelena David OD [address] [facility] [place] [address] Assigned Surgical Provider 05/08/22 10/08/22 Galo Burrell MD Assigned Heart and Vascular Provider 04/17/22 06/11/22 Livan Sharif MD [address] [place] [address] Cardiovascular Disease 05/14/22 Livan Sharif MD [address] [place] [address] Assigned Heart and Vascular Provider 06/12/22 07/23/22 Catherine Cm MD [address] [place] 313[address] Cardiovascular Disease 07/21/22 Valery Veronica, PA-C 909 [place] [address] Physician Labor Relations Or Personnel Negotiator Dermatology 07/21/22 Catherine Cm MD [address] [place] 787225 Assigned Heart and Vascular Provider 07/24/22 11/05/22 Johnny Murillo MD [address] [place] [address] Assigned Musculoskeletal Provider 08/14/22 10/08/22 Brea Quinn APRN EDGE TRIMMER MECHANIC 500 [place] [address] Nurse Practitioner Dermatology 09/21/22 Brea Quinn APRN EDGE TRIMMER MECHANIC [facility]1 [place] [address] Assigned Surgical Provider 10/09/22 [place] [address] [facility] 300 [place] [address] Assigned Musculoskeletal Provider 10/09/22 Livan Sharfi MD [address], [facility] [address] [place] [address] Assigned Heart and Vascular Provider 11/06/22 11/12/22 Catherine Cm MD [address] [facility] [address] [place] [address] Assigned Heart and Vascular Provider 11/13/22 05/27/23 Sydnie Martinez RN Personal Advocate & Liaison (PAL) Family Medicine 03/28/23 07/31/23 Alfonso Renteria MD 5775 [facility] 200 [place], [place] 150536 Assigned Neuroscience Provider 04/02/23 Cheng Todd PA-C [address] [place] [address] [phone] Assigned PCP 04/30/23 07/15/23 Radha Lomeli APRN EDGE TRIMMER MECHANIC 6405 [facility] [address] [place] [address] Assigned Heart and Vascular Provider 05/28/23 Jelena David OD [address] [facility] [place] [address] MD Ophthalmology 06/15/23 Pao Joseph, VJ Personal Advocate & Liaison (PAL) Nurse 08/01/23 11/07/23 Esha Grimm PA-C [address] [place] [phone] Assigned PCP 07/16/23 Valery Veronica PA-C [address] [place] [address] Physician Labor Relations Or Personnel Negotiator Dermatology 09/19/23 Rey Tay MD [address] [place] [address] 346455 MD Gastroenterology 09/20/23 Rocky Zepeda DO [address] [place] [address] 691245 Physician Gastroenterology 09/20/23 Philip Dumont MD [address] [place] [address] 454085 Physician Ophthalmology 09/22/23 Meredith Carrera PA-C [address] [place] [address] 637065 Assigned Gastroenterology Provider 11/01/23 Neil Kent MD [address] [address] Dermatology 11/02/23 [place] [address] [place] [address] Neurological Surgery 12/26/23 Audrey Waite PAUcheC 500 [place], [place] 660165 Physician Labor Relations Or Personnel Negotiator Dermatology 02/28/24 documented as of this encounter
--- OUTSIDE RECORDS SUMMARY | 2024-03-12 19:41 | XMS_ITS | Encounter Summary ---
Author Organization [facility] Address [address] [place] [address] Care Team Providers Care Bank Manager Name Role Phone Lita Oseguera Unavailable Unavailable Marija Edgar APRN DIVING JUDGE Primary Care Provider Chanelle Gutierrez APRN CN Unavailab le Marija Edgar APRN DIVING JUDGE Unavailable Unavail able Mynor Broussard MD Unavailable [phone] Keisha Dotson MD Unavailable Galo Burrell MD Unavailable Unavailable Diana Desir [facility] Unavailable Rain Galaviz PA-C Unavailable Summer Lara MD Unavailable [phone] Summer Lara MD Unavailable [phone] Summer Lara MD Unavailable [phone] Tavia Wyatt MD Unavailable Unavailable Johnny Murillo MD Unavailable Erica Farrell APRN DIVING JUDGE Unavailable Teresita Bean [facility] Unavailable [phone] Taiva Wyatt MD Unavailable Unavailable Diana Desir [facility] Unavailable Rich Barrett MD Unavailable [phone] Neil Kent MD Unavailable Roney Story DPM Unavailable Erica Farrell CORE PLACER DIVING JUDGE Unavailable ThangDiana [facility] Unavailable Jelena David OD Unavailable Galo Burrell MD Unavailable Unavailable HoLivan MD Unavailable Livan Sharif MD Unavailable Catherine Cm MD Unavailable + Valery Veronica PA-C Unavailable [phone] Catherine Cm MD Unavailable + Johnny Murillo MD Unavailable [phone] Brea Quinn CORE PLACER DIVING JUDGE Unavailable [phone] Brea Quinn CORE PLACER DIVING JUDGE Unavailable [phone] Jose Francisco Johnson MD Unavailable Livan Sharif MD Unavailable IsCatherine hobbs MD Unavailable + Sydnie Martinez RN Unavailable Unavailable Alfonso Renteria MD Unavailable Esha Grimm-C Primary Care Provider Cheng Todd PA-C Unavailable Radha Lomeli CORE PLACER DIVING JUDGE Unavailable Jelena David OD Unavailable Pao Joseph RN Unavailable Unavailable Esha Grimm-C Unavailable Valery Veronica PA-C Unavailable Rey Tay MD Unavailable Rocky Zepeda DO Unavailable Philip Dumont MD Unavailable [phone] Meredith CarreraC Unavailable [phone] Neil Kent MD Unavailable Juan Pablo Emmanuel MD Unavailable [phone] Audrey Waite PA-C Unavailable [phone] Encounter Details Date Type Department Care Team (Late st Contact Info) Description 05/05/2021 [facility] Medical Advice [address] [address] Lauren Gan, RN Social History [...] 08/07/2020 How often do you attend [facility] or mu-ism services? More than 4 times per year [...] 0 04/02/2021 [facility] - Occupational Stress Questionnaire Answer [...] in a custodial (including now)? No 08/11/2020 [place] Depression Scale Answer Date Recorded [place] [...] Description 03/26/2024 11:20 AM CDT Office Visit [facility] Spine and Neurosurgery [address] [facility] [address] [place] [phone] Ebony Cid, CORE PLACER [facility] 500 [place] [address] 03/27/2024 11:00 AM CDT Office Visit [facility] [address] [place] [phone] J[place] David, [place] [address] [facility] [place] [address] 04/19/2024 2:45 PM CDT Office Visit [facility] 830 [place] [phone] Audrey Waite PA-C 420 [facility] [address], [facility] 603 [place], [place] [address] 05/08/2024 1:30 PM CDT Office Visit [facility] [address] [place] [phone] Lauren Claudio PA-C [address] [place] [address] Esha Grimm PA-C [address] [place] [address] 06/21/2024 2:00 PM VASCULAR ULTRASOUND TECHNOLOGIST Office Visit [facility] Neurology [address], [address] [place] [phone] [place] [address] [place] [address] Johnny Penn MD 6545 [place] [address] Scheduled Procedures Name Priority Associated Diagnoses Date/Ti id ESOPHAGOGASTRODUODENOSCOPY Eosinophilic esophagitis Esophageal dysphagia documented as of this encounter Visit Diagnoses Not on filedocumented in this encounter Additional Health Concerns Infection Onset Date Last Indicated Resolved Time Rule Out COVID-19 05/11/2021 05/11/2021 05/13/2021 10:18 AM CDT Rule Out COVID-19 07/13/2021 07/13/2021 07/14/2021 3:04 PM VASCULAR ULTRASOUND TECHNOLOGIST Rule Out COVID-19 07/18/2021 07/18/2021 07/20/2021 1:56 PM VASCULAR ULTRASOUND TECHNOLOGIST COVID-19 07/18/2021 07/18/2021 08/08/2021 11:3 9 PM VASCULAR ULTRASOUND TECHNOLOGIST Rule Out COVID-19 12/18/2021 12/18/2021 12/19/2021 11:34 AM CDT Rule Out COVID-19 02/24/2022 02/24/2022 02/25/2022 1:08 PM CDT Rule Out COVID-19 04/26/2022 04/26/2022 04/26/2022 6:47 AM CDT Rule Out COVID-19 05/17/2022 05/17/2022 05/17/2022 10:20 PM VASCULAR ULTRASOUND TECHNOLOGIST Rule Out COVID-19 06/09/2022 06/09/2022 06/09/2022 9:35 AM VASCULAR ULTRASOUND TECHNOLOGIST COVID-19 06/09/2022 06/09/2022 06/30/2022 11:4 1 PM VASCULAR ULTRASOUND TECHNOLOGIST Rule Out COVID-19 11/10/2022 11/10/2022 11/11/2022 12:17 PM CDT Rule Out COVID-19 03/07/2023 03/07/2023 03/07/2023 1:20 PM CDT Rule Out COVID-19 12/26/2023 12/26/2023 12/26/2023 9:50 AM CDT Assessment Noted Time PHQ-9 Depression Total Score: 2 04/02/20 10:19 AM CDT documented as of this encounter Care Teams Bank Manager Relationship Specialty Start Date End Date Marija Edgar APRN DIVING JUDGE PCP - General Nurse Practitioner 04/30/20 04/14/23 Esha Grimm PA-C [address] [place] [address] PCP - General Family Medicine 05/04/23 Lita Oseguera Personal Advocate & Liaison (PAL) 02/28/20 03/27/23 Chanelle Mccann APRN CNM [address] [place] [address] Assigned OBGYN Provider 05/02/2005/09 Marija Edgar APRN DIVING JUDGE Assigned PCP 06/08/20 04/29/23 Mynor Broussard MD 6363 [facility] 500 [place] [address] Assigned Surgical Provider 06/01/20 11/28/21 Keisha Dotson MD 909 [place] [address] Assigned Neuroscience Provider 06/04/20 04/01/23 Galo Burrell MD Assigned Heart and Vascular Provider 10/05/20 04/02/22 [facility] [address] [place] [address] Pharmacist Pharmacist 04/17/21 Rain Galaviz PA-C [address] [facility] [address] [address] [place] [address] Physician Paste Up Artist Apprentice Dermatology 04/28/21 Summer Lara MD 606 [facility] [place] [address] Assigned OBGYN Provider 05/10/2105/23 Summer Lara MD [address] [place] [address] Assigned OBGYN Provider 05/31/21 2 Summer Lara MD [address] [place] [address] Assigned OBGYN Provider 05/24/2105/30 Tavia Wyatt MD [address] [place] [address] Dermatology 07/14/21 Johnny Murillo MD [address] [place] [address] Assigned Musculoskeletal Provider 08/30/21 03/17/22 Erica Farrell APRN DIVING JUDGE 6405 [facility] [address] [place] [address] Nurse Practitioner Cardiovascular Disease 09/09/21 [facility] [address] [place] [place] [address] Pharmacist Pharmacist 09/24/21 09/29/21 Tavia Wyatt MD Assigned Surgical Provider 11/29/21 05/07/22 [facility] 3033 [place] [address] Assigned MTM Pharmacist 01/02/22 Rich Barrett MD 516 [facility] 9A [place], [place] [address] Physician Ophthalmology 01/21/22 Neil Kent MD [address] [place] [address] 690175 Dermatology 02/24/22 [place] [address] [facility] [address] [place] [address] Assigned Musculoskeletal Provider 03/20/22 08/13/22 Erica Farrell APRN DIVING JUDGE 1700 [place] [address] Assigned Heart and Vascular Provider 04/03/22 04/16/22 Diana Desir, [facility] 3033 [place], [place] 724646 Assigned MTM Pharmacist 04/07/22 Jelena David OD [address] [facility] [place] [address] Assigned Surgical Provider 05/08/22 10/08/22 Galo Burrell MD Assigned Heart and Vascular Provider 04/17/22 06/11/22 Livan Sharif MD [address] [facility]00 [place] [address] Cardiovascular Disease 05/14/22 Livan Sharif MD [address] [facility]00 [place] [address] Assigned Heart and Vascular Provider 06/12/22 07/23/22 Catherine Cm MD [address] [facility]00 [place] [address] Cardiovascular Disease 07/21/22 Valery Veronica, PAUcheC [address] [place] [address] Physician Paste Up Artist Apprentice Dermatology 07/21/22 Catherine Cm MD [address] [facility] S [facility]00 [place] [address] Assigned Heart and Vascular Provider 07/24/22 11/05/22 Johnny Murillo MD [address] [place] [address] Assigned Musculoskeletal Provider 08/14/22 10/08/22 Brea Quinn APRN DIVING JUDGE [address] [place] [address] 943265 Nurse Practitioner Dermatology 09/21/22 Brea Quinn APRN DIVING JUDGE [address] [place] [address] 151972 Assigned Surgical Provider 10/09/22 [place] [address] [address] Assigned Musculoskeletal Provider 10/09/22 Livan Sharif MD [address], [facility]00 [place] [address] Assigned Heart and Vascular Provider 11/06/22 11/12/22 Catherine Cm MD [address] [facility] S [facility]00 [place] [address] Assigned Heart and Vascular Provider 11/13/22 05/27/23 Sydnie Martinez RN Personal Advocate & Liaison (PAL) Family Medicine 03/28/23 07/31/23 Alfonso Renteria MD 5775 [facility] [address] 200 [place] [address] Assigned Neuroscience Provider 04/02/23 Cheng Todd PA-C [address] [place] [address] Assigned PCP 04/30/23 07/15/23 Radha Lomeli APRN DIVING JUDGE 6405 [facility] [address] [place] [address] Assigned Heart and Vascular Provider 05/28/23 Jelena David OD [facility] [facility] [place] [address] Ophthalmology 06/15/23 Pao Joseph, VJ Personal Advocate & Liaison (PAL) Nurse 08/01/23 11/07/23 Esha Grimm PA-C [address] [place] [address]833[address] Assigned PCP 07/16/23 Valery Veronica PA-C [address] [place] [address] Physician Paste Up Artist Apprentice Dermatology 09/19/23 Rey Tay MD [address] [place] [address] 454385 Gastroenterology 09/20/23 Rocky Zepeda DO [address] [place] [address] Physician Gastroenterology 09/20/23 Philip Dumont MD [address] [place] [address] Physician Ophthalmology 09/22/23 Meredith Carrera PA-C [address] [place] [address] Assigned Gastroenterology Provider 11/01/23 Neil Kent MD [address] [place] [address] 591070 MD Dermatology 11/02/23 [place] [address] 897017 Neurological Surgery 12/26/23 Audrey Waite PA-C 500 [place] [address] Physician Paste Up Artist Apprentice Dermatology 02/28/24 documented as of this encounter
--- OUTSIDE RECORDS SUMMARY | 2024-03-12 19:41 | XMS_ITS | Encounter Summary ---
Author Organization [facility] Address [address] [place] [address] Care Team Providers Care Steel Rule Die Maker Apprentice Name Role Phone Lita Oseguera Unavailable Unavailable Marija Edgar APRN INK MAKER Primary Care Provider Chanelle Gutierrez APRN CN Unavailab le Marija Edgar APRN INK MAKER Unavailable Unavail able Mynor Broussard MD Unavailable [phone] Keisha Dotson MD Unavailable [phone] Galo Burrell MD Unavailable Unavailable Diana Desir [facility] Unavailable Rain Galaviz PA-C Unavailable Summer Lara MD Unavailable [phone] Summer Lara MD Unavailable [phone] Summer Lara MD Unavailable [phone] Tavia Wyatt MD Unavailable Unavailable Johnny Murillo MD Unavailable Erica Farrell APRN INK MAKER Unavailable Teresita Bean [facility] Unavailable [phone] Tavia Wyatt MD Unavailable Unavailable Diana Desir [facility] Unavailable [phone] Rich Barrett MD Unavailable [phone] Neil Kent MD Unavailable Roney Story DPM Unavailable Erica Farrell CONVEYOR CONSOLE OPERATOR INK MAKER Unavailable ThangDiana [facility] Unavailable Jelena David OD Unavailable Galo Burrell MD Unavailable Unavailable HoLivan MD Unavailable Livan Sharif MD Unavailable Catherine Cm MD Unavailable + Valery Veronica PA-C Unavailable [phone] Catherine Cm MD Unavailable + Johnny Murillo MD Unavailable [phone] Brea Quinn CONVEYOR CONSOLE OPERATOR INK MAKER Unavailable [phone] Brea Quinn CONVEYOR CONSOLE OPERATOR INK MAKER Unavailable [phone] Jose Francisco Johnson MD Unavailable Livan Sharif MD Unavailable IsCatherine hobbs MD Unavailable + Sydnie Martinez RN Unavailable Unavailable Alfonso Renteria MD Unavailable Esha Grimm-C Primary Care Provider Cehng Todd PA-C Unavailable Radha Lomeli CONVEYOR CONSOLE OPERATOR INK MAKER Unavailable Jelena David OD Unavailable Pao Joseph RN Unavailable Unavailable Esha Grimm-C Unavailable [phone] Valery Veronica PA-C Unavailable [phone] Rey Tay MD Unavailable Rocky Zepeda DO Unavailable Philip Dumont MD Unavailable [phone] Meredith Carrera PA-C Unavailable [phone] Neil Kent MD Unavailable Juan Pablo Emmanuel MD Unavailable [phone] Audrey Waite PA-C Unavailable [phone] Encounter Details Date Type Department Care Team (Late st Contact Info) Description 04/17/2021 [facility] Medical Advice [address] [address] Diana Desir, [facility] 3033 [place] [address] Social History Tobacco Use Types [...] you attend chur ch or moravian services? More than 4 times [...] Answer Date Recorded PHQ-2 Score 0 04/02/2021 [facility] [...] in a fdc (including now)? No 08/11/2020 [place] Depression Scale Answer Date Recorded [place] Depression Score 5 01/14/2021 Last EPDS Self [...] Description 03/26/2024 11:20 AM CDT Office Visit [facility] Spine and Neurosurgery [address] [facility] [place] [address] Ebony Cid, CONVEYOR CONSOLE OPERATOR [facility] 500 [place], [place] [phone] 03/27/2024 11:00 AM CDT Office Visit [facility] [address] [facility] [address] [place] [address] Jelena David, [place] 3305 [facility] [place] [address] 04/19/2024 2:45 PM CDT Office Visit [address] [phone] Audrey Waite PA-C [address], [facility] 603 [place], [place] 5039[address] 05/08/2024 1:30 PM CDT Office Visit [facility] [address] [place] [address] Lauren Cluadio PA-C [address] [place] [address] Esha Grimm PA-C [address] [place] [address] 06/21/2024 2:00 PM SPIRITUAL MINISTER Office Visit [facility] Neurology [facility] - [address], [address] [place] [address] [place] [address] [place], [place] 6[address] Johnny Penn MD 6545 [place], [place] 8[address] Scheduled Procedures Name Priority Associated Diagnoses Date/Ti co ESOPHAGOGASTRODUODENOSCOPY Eosinophilic esophagitis Esophageal dysphagia documented as of this encounter Visit Diagnoses Not on filedocumented in this encounter Additional Health Concerns Infection Onset Date Last Indicated Resolved Time Rule Out COVID-19 05/11/2021 05/11/2021 05/13/2021 10:18 AM CDT Rule Out COVID-19 07/13/2021 07/13/202107/1407/14/2021 3:04 PM SPIRITUAL MINISTER Rule Out COVID-19 07/18/2021 07/18/2021 07/20/2021 1:56 PM SPIRITUAL MINISTER COVID-19 07/18/2021 07/18/2021 08/08/2021 11:3 9 PM SPIRITUAL MINISTER Rule Out COVID-19 12/18/2021 12/18/2021 12/19/2021 11:34 AM CDT Rule Out COVID-19 02/24/2022 02/24/2022 02/25/2022 1:08 PM CDT Rule Out COVID-19 04/26/2022 04/26/2022 04/26/2022 6:47 AM CDT Rule Out COVID-19 05/17/2022 05/17/2022 05/17/2022 10:20 PM SPIRITUAL MINISTER Rule Out COVID-19 06/09/2022 06/09/2022 06/09/2022 9:35 AM SPIRITUAL MINISTER COVID-19 06/09/2022 06/09/2022 06/30/2022 11:4 1 PM SPIRITUAL MINISTER Rule Out COVID-19 11/10/2022 11/10/2022 11/11/2022 12:17 PM CDT Rule Out COVID-19 03/07/2023 03/07/2023 03/07/2023 1:20 PM CDT Rule Out COVID-19 12/26/2023 12/26/2023 12/26/2023 9:50 AM CDT Assessment Noted Time PHQ-9 Depression Total Score: 2 04/02/20 10:19 AM CDT documented as of this encounter Care Teams Steel Rule Die Maker Apprentice Relationship Specialty Start Date End Date Marija Edgar APRN INK MAKER PCP - General Nurse Practitioner 04/30/20 04/14/23 Esha Grimm PA-C [address] [place] [address] PCP - General Family Medicine 05/04/23 Lita Oseguera Personal Advocate & Liaison (PAL) 02/28/20 03/27/23 Chanelle Mccann APRN [facility] [address] [place], [facility] 200 [place] [address] Assigned OBGYN Provider 05/02/2005/09 Marija Edgar APRN INK MAKER Assigned PCP 06/08/20 04/29/23 Mynor Broussard MD 6363 [facility] 500 [place] [address] Assigned Surgical Provider 06/01/20 11/28/21 Keisha Dotson MD 909 [place] [address] Assigned Neuroscience Provider 06/04/20 04/01/23 Galo Burrell MD Assigned Heart and Vascular Provider 10/05/20 04/02/22 [facility] [address] [place] [address] Pharmacist Pharmacist 04/17/21 Rain Galaviz PA-C [address] [place] [address] [address] [place] [address] Physician Tag And Label Cutter Dermatology 04/28/21 Summer Lara MD [address] [facility] [address] [place], [place] 35[address] Assigned OBGYN Provider 05/10/2105/23 Summer Lara MD [address] [place] [address] Assigned OBGYN Provider 05/31/21 2 Summer Lara MD [address] [place] [address] Assigned OBGYN Provider 05/24/2105/30 Tavia Wyatt MD [address] [place] [address] Dermatology 07/14/21 Johnny Murillo MD [address] [place] [address] Assigned Musculoskeletal Provider 08/30/21 03/17/22 Erica Farrell APRN INK MAKER 6405 [facility] [address] [place] [address] Nurse Practitioner Cardiovascular Disease 09/09/21 Teresita Bean [facility] [address] [place] [phone] Pharmacist Pharmacist 09/24/21 09/29/21 Tavia Wyatt MD Assigned Surgical Provider 11/29/21 05/07/22 [facility] [address] [place] [address] Assigned MTM Pharmacist 01/02/22 Rich Barrett MD [address] 2094[address] Physician Ophthalmology 01/21/22 Neil Kent MD [address] [place] [address] 527315 Dermatology 02/24/22 Roney Story DPM 363[address] [facility] [address] [place] [address] Assigned Musculoskeletal Provider 03/20/22 08/13/22 Erica Farrell APRN INK MAKER 1700 [place] [address] Assigned Heart and Vascular Provider 04/03/22 04/16/22 [facility] 3033 [place] [address] Assigned MTM Pharmacist 04/07/22 Jelena David OD 3305 [facility] [place] [address] Assigned Surgical Provider 05/08/22 10/08/22 Galo Burrell MD Assigned Heart and Vascular Provider 04/17/22 06/11/22 Livan Sharif MD [address] [place] [address] Cardiovascular Disease 05/14/22 Livan Sharif MD [address], [address] [address] [place] [address] Assigned Heart and Vascular Provider 06/12/22 07/23/22 Catherine Cm MD [address] [place] 209645 Cardiovascular Disease 07/21/22 Valery Veronica, [address] 9 [place] [address] Physician Tag And Label Cutter Dermatology 07/21/22 Catherine Cm MD [address] [place] [address] [place] [address] Assigned Heart and Vascular Provider 07/24/22 11/05/22 Johnny Murillo MD [address] [place] [address] 943864 Assigned Musculoskeletal Provider 08/14/22 10/08/22 Brea Quinn APRN INK MAKER [address] [place] [address] 724425 Nurse Practitioner Dermatology 09/21/22 Brea Quinn APRN INK MAKER [address] [place] [address] Assigned Surgical Provider 10/09/22 [place] [address] 980077 Assigned Musculoskeletal Provider 10/09/22 Livan Sharif MD [address] [place] [address] [place] 287675 Assigned Heart and Vascular Provider 11/06/22 11/12/22 Catherine Cm MD [address] [place] [address] [place] 835505 Assigned Heart and Vascular Provider 11/13/22 05/27/23 Sydnie Martinez, RN Personal Advocate & Liaison (PAL) Family Medicine 03/28/23 07/31/23 Alfonso Renteria MD 5775 [facility] [address] 200 [place] [address] Assigned Neuroscience Provider 04/02/23 Cheng Todd PA-C [address] [place] [address] [phone] Assigned PCP 04/30/23 07/15/23 Radha Lomeli APRN INK MAKER 6405 [facility] [address] [place] [address] Assigned Heart and Vascular Provider 05/28/23 Jelena David OD 3305 [facility] [place] [address] Ophthalmology 06/15/23 Pao Joseph, VJ Personal Advocate & Liaison (PAL) Nurse 08/01/23 11/07/23 Esha Grimm PA-C [address] [place] [address] Assigned PCP 07/16/23 Valery Veronica PA-C [address] [place] [address] 415905 Physician Tag And Label Cutter Dermatology 09/19/23 Rey Tay MD [address] [place] [address] 856355 MD Gastroenterology 09/20/23 Rocky Zepeda DO 500 [place] [address] Physician Gastroenterology 09/20/23 Philip Dumont MD 516 [place], [place] 580755 Physician Ophthalmology 09/22/23 Meredith Carrera PA-C [address] [place] [address] 530655 Assigned Gastroenterology Provider 11/01/23 Neil Kent MD [address] [address] Dermatology 11/02/23 [place] [address] [place] [address] Neurological Surgery 12/26/23 Audrey Waite PA-C 500 [place] [address] Physician Tag And Label Cutter Dermatology 02/28/24 documented as of this encounter
--- OUTSIDE RECORDS SUMMARY | 2024-03-12 19:41 | XMS_ITS | Encounter Summary ---
Author Organization [facility] Address [address] [place] [address] Care Team Providers Care Roller Hand Name Role Phone Lita Oseguera Unavailable Unavailable Marija Edgar APRN EEG TECHNOLOGIST Primary Care Provider U Marija Bella APRN EEG TECHNOLOGIST Unavailable Unavail able Mynor Broussard MD Unavailable [phone] Keisha Dotson MD Unavailable Galo Burrell MD Unavailable Unavailable Diana Desir [facility] Unavailable Rain Galaviz PA-C Unavailable Summer Lara MD Unavailable [phone] Tavia Wyatt MD Unavailable Unavailable Johnny Murillo MD Unavailable Erica Farrell APRN EEG TECHNOLOGIST Unavailable Teresita Bean [facility] Unavailable [phone] Tavia Wyatt MD Unavailable Unavailable Diana Desir [facility] Unavailable [phone] Rich Barrett MD Unavailable Neil Kent MD Unavailable Roney Story DPM Unavailable [phone] Erica Farrell APRN EEG TECHNOLOGIST Unavailable + Diana Desir [facility] Unavailable Jelena David OD Unavailable Galo Burrell MD Unavailable Unavailable Livan Sharif MD Unavailable Livan Sharif MD Unavailable IsCatherine hobbs MD Unavailable + Valery Veronica PA-C Unavailable [phone] Catherine Cm MD Unavailable + Johnny Murillo MD Unavailable [phone] Brea Quinn BIOMETRIC TECHNICIAN EEG TECHNOLOGIST Unavailable [phone] Brea Quinn BIOMETRIC TECHNICIAN EEG TECHNOLOGIST Unavailable [phone] Jose Francisco Johnson MD Unavailable Livan Sharif MD Unavailable + IsCatherine hobbs MD Unavailable + Sydnie Martinez RN Unavailable Unavailable Alfonso Renteria MD Unavailable Esha Grimm PA-C Primary Care Provider Cheng Todd PA-C Unavailable Radha Lomeli BIOMETRIC TECHNICIAN EEG TECHNOLOGIST Unavailable [phone] Jelena David OD Unavailable [phone] Pao Joseph RN Unavailable Unavailable Esha Grimm-C Unavailable [phone] Valery Veronica PA-C Unavailable [phone] Rey Tay MD Unavailable Rocky Zepeda DO Unavailable Philip Dumont MD Unavailable [phone] Meredith Carrera PA-C Unavailable [phone] Neil Kent MD Unavailable Juan Pablo Emmanuel MD Unavailable Audrey Waite PA-C Unavailable [phone] Encounter Details Date Type Department Care Team (Late st Contact Info) Description 06/25/2021 MyC Medical Advice [address] [address] Diana Desir, [facility] [address] [place] [address] Psoriasis (Primary Dx) Social History Tobacco Use [...] week 08/07/2020 How often do you attend [facility] or m[facility]onism services? More than 4 times per year [...] Date Recorded PHQ-2 Score 0 04/02/2021 [facility]at [facility] - Occupational Stress Questionnaire Answer [...] a senior care (including now)? No 08/11/2020 [place] Depression Scale Answer Date Recorded [place] Depression Score 5 01/14/2021 Last EPDS Self [...] COVID-19? No / Unsure 06/26/2021 8:28 AM RESOURCING CONSULTANT documented as of this encounter Miscellaneous Notes * Telephone Encounter - Diana Desir RPH - 06/26/2021 9:53 AM CST Discussed with PCP and verbal approval for betamethasone cream. Diana Desir, PharmD Medication Therapy Management Provider, [facility] Pager: [phone] URCING CONSULTANT documented in this encounter Plan of Treatment Upcoming Encounters Date Type Department Care Team (Late st Contact Info) Description 03/26/2024 11:20 AM CDT Office Visit [facility] Spine and Neurosurgery [address] [place] [address] Ebony Cid, [facility] 500 [place] [address] 03/27/2024 11:00 AM CDT Office Visit [facility] Monserrat [address] [place] [phone] Jelena David, OD [address] [facility] [place] [address] 04/19/2024 2:45 PM CDT Office Visit [facility] 830 [place] [phone] Audrey Waite PA-C 420 [facility] [address], [facility] 603 [place], [place] 57[address] 05/08/2024 1:30 PM CDT Office Visit [facility] [address] [place] [phone] Lauren Claudio PA-C [address] [place], [place] [phone] Esha Grimm PA-C [address] [place] [address] 06/21/2024 2:00 PM RESOURCING CONSULTANT Office Visit [facility] Neurology [facility] [address] [place] [address], [address] [place] [phone] [place] [address] [place] 9[address] Johnny Penn MD [address] [facility] [place] [id number] Scheduled Procedures Name Priority Associated Diagnoses Date/Ti me ESOPHAGOGASTRODUODENOSCOPY Eosinophilic esophagitis Esophageal dysphagia documented as of this encounter Visit Diagnoses Diagnosis Psoriasis- Primary Other psoriasis documented in this encounter Additional Health Concerns Infection Onset Date Last Indicated Resolved Time Rule Out COVID-19 07/13/2021 07/13/2021 07/14/2021 3:04 PM RESOURCING CONSULTANT Rule Out COVID-19 07/18/2021 07/18/2021 07/20/2021 1:56 PM RESOURCING CONSULTANT COVID-19 07/18/2021 07/18/2021 08/08/2021 11:3 9 PM RESOURCING CONSULTANT Rule Out COVID-19 12/18/2021 12/18/2021 12/19/2021 11:34 AM CDT Rule Out COVID-19 02/24/2022 02/24/2022 02/25/2022 1:08 PM CDT Rule Out COVID-19 04/26/2022 04/26/2022 04/26/2022 6:47 AM CDT Rule Out COVID-19 05/17/2022 05/17/2022 05/17/2022 10:20 PM RESOURCING CONSULTANT Rule Out COVID-19 06/09/2022 06/09/2022 06/09/2022 9:35 AM RESOURCING CONSULTANT COVID-19 06/09/2022 06/09/2022 06/30/2022 11:4 1 PM RESOURCING CONSULTANT Rule Out COVID-19 11/10/2022 11/10/2022 11/11/2022 12:17 PM CDT Rule Out COVID-19 03/07/2023 03/07/2023 03/07/2023 1:20 PM CDT Rule Out COVID-19 12/26/2023 12/26/2023 12/26/2023 9:50 AM CDT Assessment Noted Time PHQ-9 Depression Total Score: 2 04/02/20 10:19 AM CDT documented as of this encounter Care Teams Roller Hand Relationship Specialty Start Date End Date Marija Edgar APRN CNP PCP - General Nurse Practitioner 04/30/20 04/14/23 Esha Grimm PA-C [address] [place] [address] PCP - General Family Medicine 05/04/23 Lita Oseguera Personal Advocate & Liaison (PAL) 02/28/20 03/27/23 Marija Edgar APRN EEG TECHNOLOGIST Assigned PCP 06/08/20 04/29/23 Mynor Broussard MD 6[address] [facility] 500 [place] [address] Assigned Surgical Provider 06/01/20 11/28/21 Keisha Dotson MD 909 [place] [address] Assigned Neuroscience Provider 06/04/20 04/01/23 Galo Burrell MD Assigned Heart and Vascular Provider 10/05/20 04/02/22 [facility] [address] [place] [address] Pharmacist Pharmacist 04/17/21 Rain Galaviz PA-C [address] [facility] [address] [place] [address] Physician Military Source Operations Specialist Dermatology 04/28/21 Summer Lara MD [address] [facility] [place] [address] Assigned OBGYN Provider 05/31/21 2 Tavia Wyatt MD [address] [place], [place] [address] [place] [address] Dermatology 07/14/21 Johnny Murillo MD [address] [facility] [address] [place] [address] Assigned Musculoskeletal Provider 08/30/21 03/17/22 Erica Farrell APRN EEG TECHNOLOGIST 6405 [facility] [address] [place] [address] Nurse Practitioner Cardiovascular Disease 09/09/21 Teresita Bean [facility] [address] [place] [phone] Pharmacist Pharmacist 09/24/21 09/29/21 Tavia Wyatt MD Assigned Surgical Provider 11/29/21 05/07/22 [facility] 3033 [place] [address] Assigned MTM Pharmacist 01/02/22 Rich Barrett MD [address] [address] Physician Ophthalmology 01/21/22 Neil Kent MD 500 [place] [address] Dermatology 02/24/22 Roney Story DPM [address] [facility] [address] [place] [address] Assigned Musculoskeletal Provider 03/20/22 08/13/22 Erica Farrell APRN EEG TECHNOLOGIST 1700 [place] [address] Assigned Heart and Vascular Provider 04/03/22 04/16/22 [facility] 3033 [place] [address] Assigned MTM Pharmacist 04/07/22 Jelena David OD [address] [facility] [place] [address] Assigned Surgical Provider 05/08/22 10/08/22 Galo Burrell MD Assigned Heart and Vascular Provider 04/17/22 06/11/22 Livan Sharif MD [address] [place] [address] Cardiovascular Disease 05/14/22 Livan Sharif MD [address] [place] [address] [place] 231045 Assigned Heart and Vascular Provider 06/12/22 07/23/22 Catherine Cm MD [address] [facility] [address] [place] 379[address] Cardiovascular Disease 07/21/22 Valery Veronica, PA-C 909 [place], [place] 332155 Physician Military Source Operations Specialist Dermatology 07/21/22 Catherine Cm MD [address] [place] [address] [place] [id number] Assigned Heart and Vascular Provider 07/24/22 11/05/22 Johnny Murillo MD [address] [facility] [address] [place], [place] 6[address]184 Assigned Musculoskeletal Provider 08/14/22 10/08/22 Brea Quinn APRN EEG TECHNOLOGIST 500 [place] [address] Nurse Practitioner Dermatology 09/21/22 Brea Quinn APRN EEG TECHNOLOGIST 6401 [place], [place] 585732 Assigned Surgical Provider 10/09/22 [place] [address] [facility] 300 [place], [place] 164857 Assigned Musculoskeletal Provider 10/09/22 Livan Sharif MD [address] [facility] [address] [place] [address] Assigned Heart and Vascular Provider 11/06/22 11/12/22 Catherine Cm MD [address] [facility] [address] [place] [address] Assigned Heart and Vascular Provider 11/13/22 05/27/23 Sydnie Martinez RN Personal Advocate & Liaison (PAL) Family Medicine 03/28/23 07/31/23 Alfnoso Renteria MD 5775 [facility] 200 [place], [place] 743206 Assigned Neuroscience Provider 04/02/23 Cheng Todd PA-C [address] [place] [address] Assigned PCP 04/30/23 07/15/23 Radha Lomeli, ARLENE EEG TECHNOLOGIST 6405 [facility] [address] [place] [address] Assigned Heart and Vascular Provider 05/28/23 Jelena David OD [address] [place] [address] MD Ophthalmology 06/15/23 Pao Joseph, VJ Personal Advocate & Liaison (PAL) Nurse 08/01/23 11/07/23 Esha Grimm PA-C [address] [place] [phone] Assigned PCP 07/16/23 Valery Veronica PA-C [address] [place] [address] 333855 Physician Military Source Operations Specialist Dermatology 09/19/23 Rey Tay MD [address] [place] [address] 992615 Gastroenterology 09/20/23 Rocky Zepeda DO [address] [place] [address] 273705 Physician Gastroenterology 09/20/23 Philip Dumont MD [address] [place] [address] 437675 Physician Ophthalmology 09/22/23 Meredith Carrera PA-C [address] [place] [address] 407145 Assigned Gastroenterology Provider 11/01/23 Neil Kent MD [address] [address] Dermatology 11/02/23 [place] [address] [place] [address] 705117 Neurological Surgery 12/26/23 Audrey Waite PAUcheC 500 [place], [place] 031695 Physician Military Source Operations Specialist Dermatology 02/28/24 documented as of this encounter
--- OUTSIDE RECORDS SUMMARY | 2024-03-12 19:41 | XMS_ITS | Encounter Summary ---
Author Organization [facility] Address [address] [place] [address] Care Team Providers Care Biomedical Specialist Name Role Phone Lita Oseguera Unavailable Unavailable Marija Edgar APRN STILE RIPSAW OPERATOR Primary Care Provider Chanelle Gutierrez APRN CN Unavailab le Marija Edgar APRN STILE RIPSAW OPERATOR Unavailable Unavail able Mynor Broussard MD Unavailable [phone] Keisha Dotson MD Unavailable [phone] Galo Burrell MD Unavailable Unavailable Diana Desir [facility] Unavailable Rain Galaviz PA-C Unavailable Summer Lara MD Unavailable [phone] Summre Lara MD Unavailable [phone] Summre Lara MD Unavailable [phone] Tavia Wyatt MD Unavailable Unavailable Johnny Murillo MD Unavailable [phone] Erica Farrell APRN STILE RIPSAW OPERATOR Unavailable Teresita Bean [facility] Unavailable Tavia Wyatt MD Unavailable Unavailable Diana Desir [facility] Unavailable Rich Barrett MD Unavailable [phone] Neil [place] MD Unavailable Roney Story DPM Unavailable Erica Farrell EXCEPTIONAL CHILDREN TEACHER ASSISTANT STILE RIPSAW OPERATOR Unavailable ThangDiana [facility] Unavailable Jelena David OD Unavailable Galo Burrell MD Unavailable Unavailable HoLivan MD Unavailable Livan Sharif MD Unavailable Catherine Cm MD Unavailable + Valery Veronica PA-C Unavailable [phone] Catherine Cm MD Unavailable + Johnny Murillo MD Unavailable [phone] Brea Quinn EXCEPTIONAL CHILDREN TEACHER ASSISTANT STILE RIPSAW OPERATOR Unavailable [phone] Brea Quinn EXCEPTIONAL CHILDREN TEACHER ASSISTANT STILE RIPSAW OPERATOR Unavailable [phone] Jose Francisco Johnson MD Unavailable Livan Sharif MD Unavailable IsCatherine hobbs MD Unavailable + Sydnie Martinez RN Unavailable Unavailable Alfonso Renteria MD Unavailable Esha Grimm-C Primary Care Provider Cheng Todd PA-C Unavailable Radha Lomeli EXCEPTIONAL CHILDREN TEACHER ASSISTANT STILE RIPSAW OPERATOR Unavailable Jelena David OD Unavailable Pao Joseph RN Unavailable Unavailable Esha Grimm-C Unavailable [phone] Valery Veronica PA-C Unavailable Rey Tay MD Unavailable Rocky Zepeda DO Unavailable Philip Dumont MD Unavailable [phone] Meredith CarreraC Unavailable [phone] Neil Kent MD Unavailable Juan Pablo Emmanuel MD Unavailable [phone] Audrey Waite PA-C Unavailable [phone] Encounter Details Date Type Department Care Team (Late st Contact Info) Description 04/17/2021 MyC Medical Advice [address] [address] Marija Edgar APRN CNP Social [...] often do you attend [facility] or [facility] services? More than 4 times per year [...] Recorded PHQ-2 Score 0 04/02/2021 [facility] of Occupat ional [...] a care home (including now)? No 08/11/2020 [place] Depression Scale Answer Date Recorded [place]esta Depression Score 5 01/14/2021 Last EPDS Self [...] [facility] Spine and Neurosurgery [address] [facility] [address] [place] [phone] Ebony Cid, [facility] 500 [place] [address] 03/27/2024 11:00 AM CDT Office Visit [facility] Monserrat [address] [place] [address] Jelena David, [address] [facility] [place] [address] 04/19/2024 2:45 PM CDT Office Visit [facility] 830 [place] [phone] Audrey Waite PA-C 420 [facility] [address], [facility] 603 [place] [address] 05/08/2024 1:30 PM CDT Office Visit [facility] [address] [place] [address] Lauren Claudio PA-C [address] [place] [address] Esha Grimm PA-C [address] [place] [address] 06/21/2024 2:00 PM CROP SPECIALIST Office Visit [facility] Neurology [facility] - [address], [address] [place] [phone] [place] [address] [place] [address] Johnny Penn MD 6545 [place] [address] Scheduled Procedures Name Priority Associated Diagnoses Date/Ti id ESOPHAGOGASTRODUODENOSCOPY Eosinophilic esophagitis Esophageal dysphagia documented as of this encounter Visit Diagnoses Not on filedocumented in this encounter Additional Health Concerns Infection Onset Date Last Indicated Resolved Time Rule Out COVID-19 05/11/2021 05/11/2021 05/13/2021 10:18 AM CDT Rule Out COVID-19 07/13/2021 07/13/2021 07/14/2021 3:04 PM CROP SPECIALIST Rule Out COVID-19 07/18/2021 07/18/2021 07/20/2021 1:56 PM CROP SPECIALIST COVID-19 07/18/2021 07/18/2021 08/08/2021 11:3 9 PM CROP SPECIALIST Rule Out COVID-19 12/18/2021 12/18/2021 12/19/2021 11:34 AM CDT Rule Out COVID-19 02/24/2022 02/24/2022 02/25/2022 1:08 PM CDT Rule Out COVID-19 04/26/2022 04/26/2022 04/26/2022 6:47 AM CDT Rule Out COVID-19 05/17/2022 05/17/2022 05/17/2022 10:20 PM CROP SPECIALIST Rule Out COVID-19 06/09/2022 06/09/2022 06/09/2022 9:35 AM CROP SPECIALIST COVID-19 06/09/2022 06/09/2022 06/30/2022 11:4 1 PM CROP SPECIALIST Rule Out COVID-19 11/10/2022 11/10/2022 11/11/2022 12:17 PM CDT Rule Out COVID-19 03/07/2023 03/07/2023 03/07/2023 1:20 PM CDT Rule Out COVID-19 12/26/2023 12/26/2023 12/26/2023 9:50 AM CDT Assessment Noted Time PHQ-9 Depression Total Score: 2 04/02/20 10:19 AM CDT documented as of this encounter Care Teams Biomedical Specialist Relationship Specialty Start Date End Date Marija Edgar APRN STILE RIPSAW OPERATOR PCP - General Nurse Practitioner 04/30/20 04/14/23 Esha Grimm PA-C [address] [place] [address] PCP - General Family Medicine 05/04/23 Lita Oseguera Personal Advocate & Liaison (PAL) 02/28/20 03/27/23 Chanelle Mccann APRN CNM [address] [place] [address] Assigned OBGYN Provider 05/02/2005/09 Marija Edgar APRN STILE RIPSAW OPERATOR Assigned PCP 06/08/20 04/29/23 Mynor Broussard MD 6363 [facility] 500 [place] [address] Assigned Surgical Provider 06/01/20 11/28/21 Keisha Dotson MD 909 [place] [address] Assigned Neuroscience Provider 06/04/20 04/01/23 Galo Burrell MD Assigned Heart and Vascular Provider 10/05/20 04/02/22 [facility] 3033 [place] [address] Pharmacist Pharmacist 04/17/21 Rain Galaviz PA-C [address] [facility] [address] [address] [place] [address] Physician Brush Maker Dermatology 04/28/21 Summer Lara MD [address] [place] [address] Assigned OBGYN Provider 05/10/2105/23 Summer Lara MD [address] [place] [address] Assigned OBGYN Provider 05/31/21 2 Summer Lara MD [address] [address] Assigned OBGYN Provider 05/24/2105/30 Tavia Wyatt MD [address] [address] Dermatology 07/14/21 Johnny Murillo MD [address] [place] [address] Assigned Musculoskeletal Provider 08/30/21 03/17/22 Erica Farrell APRN STILE RIPSAW OPERATOR 6405 [facility] [address] [place] [address] Nurse Practitioner Cardiovascular Disease 09/09/21 [facility] [address] [place] [address] Pharmacist Pharmacist 09/24/21 09/29/21 Tavia Wyatt MD Assigned Surgical Provider 11/29/21 05/07/22 Diana Desir, [facility] 3033 [place] [address] Assigned MTM Pharmacist 01/02/22 Rich Barrett MD 516 [facility] 9A [place], [place] [address] Physician Ophthalmology 01/21/22 Neil Kent MD [address] [place] [address] 550725 Dermatology 02/24/22 Roney Story DPM [address] [place] [address] Assigned Musculoskeletal Provider 03/20/22 08/13/22 Erica Farrell APRN STILE RIPSAW OPERATOR 1700 [place] [address] Assigned Heart and Vascular Provider 04/03/22 04/16/22 Diana Desir, [facility] [address] [place], [place] 137306 Assigned MTM Pharmacist 04/07/22 Jelena David OD [address] [place] [address] Assigned Surgical Provider 05/08/22 10/08/22 Galo Burrell MD Assigned Heart and Vascular Provider 04/17/22 06/11/22 Livan Sharif MD [address] [facility]00 [place] [address] Cardiovascular Disease 05/14/22 Livan Sharif MD [address] [place] [address] Assigned Heart and Vascular Provider 06/12/22 07/23/22 Catherine Cm MD [address] [address] [place] [address] Cardiovascular Disease 07/21/22 Valery Veronica, PAUcheC [address] [place] [address] Physician Brush Maker Dermatology 07/21/22 Catherine Cm MD [address] [facility] S [facility]00 [place] [address] Assigned Heart and Vascular Provider 07/24/22 11/05/22 Johnny Murillo MD [address] [place] [address] Assigned Musculoskeletal Provider 08/14/22 10/08/22 Brea Quinn APRN STILE RIPSAW OPERATOR [address] [place] [address] Nurse Practitioner Dermatology 09/21/22 Brea Quinn APRN STILE RIPSAW OPERATOR [address] [place] [address] Assigned Surgical Provider 10/09/22 [place] [address] [place] [address] Assigned Musculoskeletal Provider 10/09/22 Livan Sharif MD [address] [place] 3275300 [place] [address] Assigned Heart and Vascular Provider 11/06/22 11/12/22 Catherine Cm MD [address] [facility] S [facility]00 [place] 040295 Assigned Heart and Vascular Provider 11/13/22 05/27/23 Sydnie Martinez, RN Personal Advocate & Liaison (PAL) Family Medicine 03/28/23 07/31/23 Alfonso Renteria MD 5775 [facility] 200 [place] [address] Assigned Neuroscience Provider 04/02/23 Cheng Todd PA-C [address] [place] [address] Assigned PCP 04/30/23 07/15/23 Radha Lomeli APRN STILE RIPSAW OPERATOR [address] [place] 7414100 [place] [address] Assigned Heart and Vascular Provider 05/28/23 Jelena David OD [address] [place] [address] Ophthalmology 06/15/23 Pao Joseph, VJ Personal Advocate & Liaison (PAL) Nurse 08/01/23 11/07/23 Esha Grimm PA-C [address] [place] [address]57[address]83 Assigned PCP 07/16/23 Valery Veronica PA-C [address] [place] [address] Physician Brush Maker Dermatology 09/19/23 Rey Tay MD [address] [place] [address] 890775 Gastroenterology 09/20/23 Rocky Zepeda DO [address] [place] [address] Physician Gastroenterology 09/20/23 Philip Dumont MD [address] [place] [address] Physician Ophthalmology 09/22/23 Meredith Carrera PA-C [address] [place] [address] Assigned Gastroenterology Provider 11/01/23 Neil Kent MD [address] [place] [address] 033950 MD Dermatology 11/02/23 [place] [address] [place] [address] 986287 Neurological Surgery 12/26/23 Audrey Waite PA-C [address] [place] [address] 459735 Physician Brush Maker Dermatology 02/28/24 documented as of this encounter
--- OUTSIDE RECORDS SUMMARY | 2024-03-12 19:41 | XMS_ITS | Encounter Summary ---
Author Organization [facility] Address [address] [place] [address] Care Team Providers Care Tube Closing Machine Operator Name Role Phone Lita Oseguera Unavailable Unavailable Marija Edgar APRN SILVER WRAPPER Primary Care Provider U Marija Bella APRN SILVER WRAPPER Unavailable Unavail able Mynor Broussard MD Unavailable [phone] Keisha Dotson MD Unavailable Galo Burrell MD Unavailable Unavailable Diana Desir [facility] Unavailable [phone] Rain Galaviz PA-C Unavailable Summer Lara MD Unavailable [phone] Tavia Wyatt MD Unavailable Unavailable Johnny Murillo MD Unavailable Erica Farrell APRN SILVER WRAPPER Unavailable Teresita Bean [facility] Unavailable Tavia Wyatt MD Unavailable Unavailable Diana Desir [facility] Unavailable [phone] Rich Barrett MD Unavailable Neil Kent MD Unavailable Roney Story DPM Unavailable [phone] Erica Farrell APRN SILVER WRAPPER Unavailable + Diana Desir [facility] Unavailable Jelena David OD Unavailable Galo Burrell MD Unavailable Unavailable Livan Sharif MD Unavailable Livan Sharif MD Unavailable IsCatherine hobbs MD Unavailable + Valery Veronica PA-C Unavailable [phone] Catherine Cm MD Unavailable + Johnny Murillo MD Unavailable [phone] Brea Qiunn CONSERVATION EDUCATOR SILVER WRAPPER Unavailable [phone] Brea Quinn CONSERVATION EDUCATOR SILVER WRAPPER Unavailable [phone] Jose Francisco Johnson MD Unavailable iLvan Sharif MD Unavailable + IsCatherine hobbs MD Unavailable + Sydnie Martinez RN Unavailable Unavailable Alfonso Renteria MD Unavailable Esha Grimm PA-C Primary Care Provider Cheng Todd PA-C Unavailable Radha Lomeli CONSERVATION EDUCATOR SILVER WRAPPER Unavailable [phone] Jelena David OD Unavailable [phone] Pao Joseph RN Unavailable Unavailable Esha Grimm-C Unavailable [phone] Valery Veronica PA-C Unavailable [phone] Rey Tay MD Unavailable Rocky Zepeda DO Unavailable Philip Dumont MD Unavailable [phone] Meredith Carrera PA-C Unavailable [phone] Neil Kent MD Unavailable Juan Pablo Emmanuel MD Unavailable Audrey Waite PA-C Unavailable [phone] Encounter Details Date Type Department Care Team (Late st Contact Info) Description 06/03/2021 MyC Medical Advice [address] [address] Diana Desir, [facility] [address] [place] [address] Social History Tobacco Use Types [...] 08/07/2020 How often do you attend [facility] or nondenominational services? More than 4 times [...] a group home (including now)? No 08/11/2020 [place] Depression Scale Answer Date Recorded [place] [...] Visit [facility] Spine and Neurosurgery 1747 [facility] 100 [place] [phone] Ebony Cid, CONSERVATION EDUCATOR [facility] 500 [place] [address] 03/27/2024 11:00 AM CDT Office Visit [facility] Monserrat [address] [facility] [address] [place] [phone] Jelena David, SONJA 3305 [facility] [place] [address] 04/19/2024 2:45 PM CDT Office Visit [facility] [address] [place] [phone] Audrey Waite PA-C [address], [facility] 603 [place] [address] 05/08/2024 1:30 PM CDT Office Visit [facility] [address] [place] [address] Lauren Claudio PA-C [address] [place] [address] Esha Grimm PA-C [address] [place] [address] 06/21/2024 2:00 PM MOBILE APPLICATION ENGINEER Office Visit [facility] Neurology [facility] - [address], [address] [place] [address] [place] [address] [place] [address] Johnny Penn MD 8156 [place] [address] Scheduled Procedures Name Priority Associated Diagnoses Date/Ti ne ESOPHAGOGASTRODUODENOSCOPY Eosinophilic esophagitis Esophageal dysphagia documented as of this encounter Visit Diagnoses Not on filedocumented in this encounter Additional Health Concerns Infection Onset Date Last Indicated Resolved Time Rule Out COVID-19 07/13/2021 07/13/2021 07/14/2021 3:04 PM MOBILE APPLICATION ENGINEER Rule Out COVID-19 07/18/2021 07/18/2021 07/20/2021 1:56 PM MOBILE APPLICATION ENGINEER COVID-19 07/18/2021 07/18/2021 08/08/2021 11:3 9 PM MOBILE APPLICATION ENGINEER Rule Out COVID-19 12/18/2021 12/18/2021 12/19/2021 11:34 AM CDT Rule Out COVID-19 02/24/2022 02/24/2022 02/25/2022 1:08 PM CDT Rule Out COVID-19 04/26/2022 04/26/2022 04/26/2022 6:47 AM CDT Rule Out COVID-19 05/17/2022 05/17/2022 05/17/2022 10:20 PM MOBILE APPLICATION ENGINEER Rule Out COVID-19 06/09/2022 06/09/2022 06/09/2022 9:35 AM MOBILE APPLICATION ENGINEER COVID-19 06/09/2022 06/09/2022 06/30/2022 11:4 1 PM MOBILE APPLICATION ENGINEER Rule Out COVID-19 11/10/2022 11/10/2022 11/11/2022 12:17 PM CDT Rule Out COVID-19 03/07/2023 03/07/2023 03/07/2023 1:20 PM CDT Rule Out COVID-19 12/26/2023 12/26/2023 12/26/2023 9:50 AM CDT Assessment Noted Time PHQ-9 Depression Total Score: 2 04/02/20 10:19 AM CDT documented as of this encounter Care Teams Tube Closing Machine Operator Relationship Specialty Start Date End Date Marija Edgar APRN SILVER WRAPPER PCP - General Nurse Practitioner 04/30/20 04/14/23 Esha Grimm PA-C [address] [place] [phone] PCP - General Family Medicine 05/04/23 Lita Oseguera Personal Advocate & Liaison (PAL) 02/28/20 03/27/23 Marija Edgar APRN SILVER WRAPPER Assigned PCP 06/08/20 04/29/23 Mynor Broussard MD [address] [address] Assigned Surgical Provider 06/01/20 11/28/21 Keisha Dotson MD 909 [place] [address] Assigned Neuroscience Provider 06/04/20 04/01/23 Galo Burrell MD Assigned Heart and Vascular Provider 10/05/20 04/02/22 Diana Desir, [facility] [address] [place] [address] Pharmacist Pharmacist 04/17/21 Rain Galaviz PA-C [address] [place] [address] [place] [address] Physician Liner Machine Operator Helper Dermatology 04/28/21 Summer Lara MD [address] [place] [address] Assigned OBGYN Provider 05/31/21 2 Tavia Wyatt MD [address] [place] [address] Dermatology 07/14/21 Johnny Murillo MD [address] [place] [address] Assigned Musculoskeletal Provider 08/30/21 03/17/22 Erica Farrell APRN SILVER WRAPPER 6405 [facility] [address] [place] 042095 Nurse Practitioner Cardiovascular Disease 09/09/21 Teresita Bean, [facility] [address] [place] [phone] Pharmacist Pharmacist 09/24/21 09/29/21 Tavia Wyatt MD Assigned Surgical Provider 11/29/21 05/07/22 Diana Desir, [facility] 3033 [place] [address] Assigned MTM Pharmacist 01/02/22 Rich Barrett MD [address] 558735 Physician Ophthalmology 01/21/22 Neil Kent MD 500 [place] [address] Dermatology 02/24/22 Roney Story DPM [address] [facility] [address] [place] [address] Assigned Musculoskeletal Provider 03/20/22 08/13/22 Erica Farrell APRN SILVER WRAPPER 1700 [place] [address] Assigned Heart and Vascular Provider 04/03/22 04/16/22 Dinaa Desir, [facility] [address] [place] [address] Assigned MTM Pharmacist 04/07/22 Jelena David OD 3305 [facility] [place] [address] Assigned Surgical Provider 05/08/22 10/08/22 Galo Burrell MD Assigned Heart and Vascular Provider 04/17/22 06/11/22 Livan Sharif MD [address] T[address]ia Sylvia, [facility] [address] [place] 644955 Cardiovascular Disease 05/14/22 Livan Sharif MD [address] Syl[place], [facility] [address] [place] [phone] Assigned Heart and Vascular Provider 06/12/22 07/23/22 Catherine Cm MD [address] [facility]00 [place] 088445 Cardiovascular Disease 07/21/22 Valery Veronica, PA-C [address] [place] [address] 440785 Physician Liner Machine Operator Helper Dermatology 07/21/22 Catherine Cm MD [address] [facility]00 [place] 308465 Assigned Heart and Vascular Provider 07/24/22 11/05/22 Johnny Murillo MD [facility] [address] [address] Assigned Musculoskeletal Provider 08/14/22 10/08/22 Brea Quinn APRN SILVER WRAPPER [address] [place] [address] 857695 Nurse Practitioner Dermatology 09/21/22 Brea Quinn APRN SILVER WRAPPER [address] [place] [address] [place] [address] Assigned Surgical Provider 10/09/22 [place] [address] [place] [address] Assigned Musculoskeletal Provider 10/09/22 Livan Sharif MD [address], [facility] [address] [place] [address] Assigned Heart and Vascular Provider 11/06/22 11/12/22 Catherine Cm MD [address] [facility] [address] [place] 359455 Assigned Heart and Vascular Provider 11/13/22 05/27/23 ySdnie Martinez RN Personal Advocate & Liaison (PAL) Family Medicine 03/28/23 07/31/23 Alfonso Renteria MD 5775 [facility] 200 [place], [place] 318416 Assigned Neuroscience Provider 04/02/23 Cheng Todd PA-C [address] [address] [phone] Assigned PCP 04/30/23 07/15/23 Radha Lomeli APRN SILVER WRAPPER [address] [place] 831485 Assigned Heart and Vascular Provider 05/28/23 Jelena David OD [address] [facility] [address] MD Ophthalmology 06/15/23 Pao Joseph, RN Personal Advocate & Liaison (PAL) Nurse 08/01/23 11/07/23 Esha Grimm PA-C [address] [place] [address] Assigned PCP 07/16/23 Valery Veronica PA-C [address] [place] [address] 280605 Physician Liner Machine Operator Helper Dermatology 09/19/23 Rey Tya MD [address] [place] [address] 469125 MD Gastroenterology 09/20/23 Rocky Zepeda DO [address] [place] [address] 749745 Physician Gastroenterology 09/20/23 Philip Dumont MD [address] [place] [address] 361865 Physician Ophthalmology 09/22/23 Meredith Carrera PA-C [address] [place] [address] 920365 Assigned Gastroenterology Provider 11/01/23 Neil Kent MD [address] 704260 Dermatology 11/02/23 [place] [address] [place] [address] Neurological Surgery 12/26/23 Audrey Waite PA-C 500 [place] [address] Physician Liner Machine Operator Helper Dermatology 02/28/24 documented as of this encounter
--- OUTSIDE RECORDS SUMMARY | 2024-03-12 19:42 | XMS_ITS | Encounter Summary ---
Author Organization [facility] Address [address] [place] [address] Care Team Providers Care Electrical Appliance Mechanic Name Role Phone Lita Oseguera Unavailable Unavailable Marija Edgar CARROT HARVESTER MAT MACHINE OPERATOR Primary Care Provider Chanelle Gutierrez CARROT HARVESTER CNM Unavailab le Kyara De La Fuente RN Unavailable [phone] Marija Edgar APRN MAT MACHINE OPERATOR Unavailable Unavail able Mynor Broussard MD Unavailable [phone] Keisha Dotson MD Unavailable [phone] Galo Burrell MD Unavailable Unavailable Cristina Wood Unavailable Diana Desir [facility] Unavailable [phone] Rain Galaviz PA-C Unavailable Summer Lara MD Unavailable [phone] Summer Lara MD Unavailable [phone] Summer Lraa MD Unavailable [phone] Tavia Wyatt MD Unavailable Unavailable Johnny Murillo MD Unavailable Erica Farrell APRN MAT MACHINE OPERATOR Unavailable Teresita Bean [facility] Unavailable Tavia Wyatt MD Unavailable Unavailable ThangKendrickDiana Stanislav [facility] Unavailable [phone] Rich Barrett MD Unavailable [phone] Neil Kent MD Unavailable Roney Story DPM Unavailable [phone] Erica Farrell CARROT HARVESTER MAT MACHINE OPERATOR Unavailable + Diana Desir [facility] Unavailable [phone] Jelena David OD Unavailable [phone] Galo Burrell MD Unavailable Unavailable Livan Sharif MD Unavailable + Livan Sharif MD Unavailable + Catherine Cm MD Unavailable + Valery Veronica PA-C Unavailable [phone] Catherine Cm MD Unavailable + Johnny Murillo MD Unavailable [phone] Brea Quinn CARROT HARVESTER MAT MACHINE OPERATOR Unavailable [phone] Brea Quinn CARROT HARVESTER MAT MACHINE OPERATOR Unavailable [phone] Jose Francisco Johnson MD Unavailable Livan Sharif MD Unavailable + Catherine Cm MD Unavailable + Sydnie Martinez RN Unavailable Unavailable Alfonso Renteria MD Unavailable [phone] Esha Grimm PA-C Primary Care Provider Cheng Todd PA-C Unavailable [phone] Radha Lomeli CARROT HARVESTER MAT MACHINE OPERATOR Unavailable [phone] Jelena David OD Unavailable [phone] Pao Joseph RN Unavailable Unavailable Alfa Eshaann ALCALA-C Unavailable [phone] Valery VeronicaC Unavailable [phone] Rey Tay MD Unavailable Duane Rockyanne STEVENS Unavailable Philip Dumont MD Unavailable [phone] Meredith CarreraC Unavailable [phone] Neil Kent MD Unavailable Juan Pablo Emmanuel MD Unavailable [phone] Audrey Waite-C Unavailable [phone] Encounter Details Date Type Department Care Team (Late st Contact Info) Description 02/06/[address] [address] [facility] Social History Tobacco Use Types Packs/Day [...] often do you attend chur ch or christianity services? More than 4 times per year [...] Answer Date Recorded PHQ-2 Score 3 09/29/2020 [facility] of Occupat [...] a senior living (including now)? No 08/11/2020 [place] Depression Scale Answer Date Recorded [place] Depression Score 5 01/14/2021 Last EPDS [...] [facility] Spine and Neurosurgery [address] [facility] [address] [place] [address] Ebony Cid, CARROT HARVESTER MAT MACHINE OPERATOR 500 [place], [place] [phone] 03/27/2024 11:00 AM CDT Office Visit [facility] Monserrat [address] [facility] [address] [place] [phone] Jelena David, OD 3305 [facility] [place] [address] 04/19/2024 2:45 PM CDT Office Visit [address] [phone] Audrey Waite PA-C [address], [facility] 603 [place], [place] 186215 05/08/2024 1:30 PM CDT Office Visit [facility] [phone] [place] [address] Lauren Claudio PA-C [address] [place] [address] Esha Grimm PA-C [address] [place] [address] 06/21/2024 2:00 PM PELLETISING EXTRUDER OPERATOR Office Visit [facility] Neurology [facility] - [address], [address] [place] [phone] [place] [address] [place], [place] [address] Johnny Penn MD 6545 [place], [place] 400255 Scheduled Procedures Name Priority Associated Diagnoses Date/Ti co ESOPHAGOGASTRODUODENOSCOPY Eosinophilic esophagitis Esophageal dysphagia documented as of this encounter Visit Diagnoses Not on filedocumented in this encounter Additional Health Concerns Infection Onset Date Last Indicated Resolved Time Rule Out COVID-19 05/11/2021 05/11/2021 05/13/2021 10:18 AM CDT Rule Out COVID-19 07/13/2021 07/13/202107/14/2021 3:04 PM PELLETISING EXTRUDER OPERATOR Rule Out COVID-19 07/18/2021 07/18/2021 07/20/2021 1:56 PM PELLETISING EXTRUDER OPERATOR COVID-19 07/18/2021 07/18/2021 08/08/2021 11:3 9 PM PELLETISING EXTRUDER OPERATOR Rule Out COVID-19 12/18/2021 12/18/2021 12/19/2021 11:34 AM CDT Rule Out COVID-19 02/24/2022 02/24/2022 02/25/2022 1:08 PM CDT Rule Out COVID-19 04/26/2022 04/26/2022 04/26/2022 6:47 AM CDT Rule Out COVID-19 05/17/2022 05/17/2022 05/17/2022 10:20 PM PELLETISING EXTRUDER OPERATOR Rule Out COVID-19 06/09/2022 06/09/2022 06/09/2022 9:35 AM PELLETISING EXTRUDER OPERATOR COVID-19 06/09/2022 06/09/2022 06/30/2022 11:4 1 PM PELLETISING EXTRUDER OPERATOR Rule Out COVID-19 11/10/2022 11/10/2022 11/11/2022 12:17 PM CDT Rule Out COVID-19 03/07/2023 03/07/2023 03/07/2023 1:20 PM CDT Rule Out COVID-19 12/26/2023 12/26/2023 12/26/2023 9:50 AM CDT Assessment Noted Time PHQ-9 Depression Total Score: 6 09/30/19 21 3:25 PM CDT documented as of this encounter Care Teams Electrical Appliance Mechanic Relationship Specialty Start Date End Date Marija Edgar APRN CNP PCP - General Nurse Practitioner 04/30/20 04/14/23 Esha Grimm PAUcheC [address] [place] [address] PCP - General Family Medicine 05/04/23 Lita Oseguera Personal Advocate & Liaison (PAL) 02/28/20 03/27/23 [place] [address] [place], [facility] 200 [place] [address] Assigned OBGYN Provider 05/02/2005/09 Kyara De La Fuente, RN Specialty Wedding Day Coordinator Neurology 06/04/20 03/05/21 Marija Edgar APRN MAT MACHINE OPERATOR Assigned PCP 06/08/20 04/29/23 Mynor Broussard MD 6363 [facility] 500 [place] 507385 Assigned Surgical Provider 06/01/20 11/28/21 Keisha Dotson MD 909 [place], [place] 096585 Assigned Neuroscience Provider 06/04/20 04/01/23 Galo Burrell MD Assigned Heart and Vascular Provider 10/05/20 04/02/22 Cristina Wood Financial Resource Worker 02/09/21 02/09/21 Diana Desir, [facility] [address] [place] [address] Pharmacist Pharmacist 04/17/21 Rain Galaviz PA-C [address] [place] [address] [address] [place] [address] Physician Peeled Potato Inspector Dermatology 04/28/21 Summer Lara MD [address] [place], [place] 254884 Assigned OBGYN Provider 05/10/2105/23 Summer Lara MD [address] [place], [place] 9[address] Assigned OBGYN Provider 05/31/21 Summer Lara MD [address] [place], [place] 122904 Assigned OBGYN Provider 05/24/2105/30 Tavia Wyatt MD [address] [place] [address] [facility] 07/14/21 Johnny Murillo MD [address] [place], [place] 163494 Assigned Musculoskeletal Provider 08/30/21 03/17/22 Erica Farrell APRN MAT MACHINE OPERATOR 6[address] [facility] [address] [place], [place] [address] Nurse Practitioner Cardiovascular Disease 09/09/21 Teresita Bean, [facility] [address] [place] [phone] Pharmacist Pharmacist 09/24/21 09/29/21 Tavia Wyatt MD Assigned Surgical Provider 11/29/21 05/07/22 Diana Desir, [facility] [address] [place] [address] Assigned MTM Pharmacist 01/02/22 Rich Barrett MD [address] [address] Physician Ophthalmology 01/21/22 Neil Kent MD 500 [place] [address] Dermatology 02/24/22 Roney Story DPM [address] [facility] [address] [place] [address] Assigned Musculoskeletal Provider 03/20/22 08/13/22 Erica Farrell APRN MAT MACHINE OPERATOR 1700 [place] [address] Assigned Heart and Vascular Provider 04/03/22 04/16/22 [facility] [address] [place] [address] Assigned MTM Pharmacist 04/07/22 Jelena David OD [address] [facility] [place] [address] Assigned Surgical Provider 05/08/22 10/08/22 Galo Burrell MD Assigned Heart and Vascular Provider 04/17/22 06/11/22 Livan Sharif MD [address] [place] [address] Cardiovascular Disease 05/14/22 Livan Sharif MD [address] [place] [address] Assigned Heart and Vascular Provider 06/12/22 07/23/22 Catherine Cm MD [address] [facility] [address] [place] [address] Cardiovascular Disease 07/21/22 Valery Veronica, [place] [address] [place] [address] Physician Peeled Potato Inspector Dermatology 07/21/22 Catherine Cm MD [address] [facility]00 [place] 731205 Assigned Heart and Vascular Provider 07/24/22 11/05/22 Johnny Murillo MD [address] [place] [address] 673894 Assigned Musculoskeletal Provider 08/14/22 10/08/22 Brea Quinn APRN MAT MACHINE OPERATOR [address] [place] [address] 043635 Nurse Practitioner Dermatology 09/21/22 Brea Quinn APRN MAT MACHINE OPERATOR [address] [place] [address] [place] 421792 Assigned Surgical Provider 10/09/22 [place] [address] [place] [address] [place] [phone] Assigned Musculoskeletal Provider 10/09/22 Livan Sharif MD [address] [place] 591385 Assigned Heart and Vascular Provider 11/06/22 11/12/22 Catherine Cm MD [address] [place] [address] Assigned Heart and Vascular Provider 11/13/22 05/27/23 Sydnie Martinez RN Personal Advocate & Liaison (PAL) Family Medicine 03/28/23 07/31/23 Alfonso Renteria MD [address]75 [facility] [address] 200 [place], [place] 082806 Assigned Neuroscience Provider 04/02/23 Cheng Todd PA-C [address] [place] [address] [phone] Assigned PCP 04/30/23 07/15/23 Radha Lomeli APRN MAT MACHINE OPERATOR [address] [place] 179405 Assigned Heart and Vascular Provider 05/28/23 Jelena David OD [address] [facility] [place] [address] Ophthalmology 06/15/23 Pao Joseph, VJ Personal Advocate & Liaison (PAL) Nurse 08/01/23 11/07/23 Esha Grimm PA-C [address] [place] [phone] Assigned PCP 07/16/23 Valery Veronica PA-C 909 [place], [place] 965475 Physician Peeled Potato Inspector Dermatology 09/19/23 Rey Tay MD 909 [place], [place] 800[address] MD Gastroenterology 09/20/23 Rocky Zepeda DO 500 [place] [address] Physician Gastroenterology 09/20/23 Philip Dumont MD 516 [place], [place] 0[address]235 Physician Ophthalmology 09/22/23 Meredith Carrera PA-C 909 [place], [place] 443495 Assigned Gastroenterology Provider 11/01/23 Neil Kent MD [address] [place] [address] 347850 Dermatology 11/02/23 [place] [address] [place] [address] Neurological Surgery 12/26/23 Audrey Waite PA-C 500 [place] [address] Physician Peeled Potato Inspector Dermatology 02/28/24 documented as of this encounter
--- OUTSIDE RECORDS SUMMARY | 2024-03-12 19:42 | XMS_ITS | Encounter Summary ---
Author Organization [place] Address [address] [place] [address] Care Team Providers Care Engineering Project Designer Name Role Phone Lita Oseguera Unavailable Unavailable Marija Edgar MACHINE MAINTENANCE MECHANIC SUPERINTENDENT OIL WELL SERVICES Primary Care Provider Chanelle Gutierrez MACHINE MAINTENANCE MECHANIC CNM Unavailab le Kyara De La Fuente RN Unavailable [phone] Marija Edgar APRN SUPERINTENDENT OIL WELL SERVICES Unavailable Unavail able Mynor Broussard MD Unavailable [phone] Keisha Dotson MD Unavailable Galo Burrell MD Unavailable Unavailable Cristina Wood Unavailable Diana Desir [facility] Unavailable [phone] Rain Galaviz PA-C Unavailable Summer Lara MD Unavailable [phone] Summer Lara MD Unavailable [phone] Summer Lara MD Unavailable [phone] Tavia Wyatt MD Unavailable Unavailable Johnny Murillo MD Unavailable Erica Farrell APRN SUPERINTENDENT OIL WELL SERVICES Unavailable Teresita Bean [facility] Unavailable Tavia Wyatt MD Unavailable Unavailable ThangKendrickDiana Stanislav [facility] Unavailable [phone] Rich Barrett MD Unavailable [phone] Neil Kent MD Unavailable Roney Story DPM Unavailable [phone] Erica Farrell MACHINE MAINTENANCE MECHANIC SUPERINTENDENT OIL WELL SERVICES Unavailable + Diana Desir [facility] Unavailable [phone] Jelena David OD Unavailable [phone] Galo Burrell MD Unavailable Unavailable Livan Sharif MD Unavailable + Livan Sharif MD Unavailable + Catherine Cm MD Unavailable + Valery Veronica PA-C Unavailable [phone] Catherine Cm MD Unavailable + Johnny Murillo MD Unavailable [phone] Brea Quinn MACHINE MAINTENANCE MECHANIC SUPERINTENDENT OIL WELL SERVICES Unavailable [phone] Brea Quinn MACHINE MAINTENANCE MECHANIC SUPERINTENDENT OIL WELL SERVICES Unavailable [phone] Jose Francisco Johnosn MD Unavailable Livan Sharif MD Unavailable + Catherine Cm MD Unavailable + Sydnie Martinez RN Unavailable Unavailable Alfonso Renteria MD Unavailable [phone] Esha Grimm PA-C Primary Care Provider Cheng Todd PA-C Unavailable [phone] Radha Lomeli MACHINE MAINTENANCE MECHANIC SUPERINTENDENT OIL WELL SERVICES Unavailable [phone] Jelena David OD Unavailable [phone] Pao Joseph RN Unavailable Unavailable Alfa Esha M PA-C Unavailable [phone] Valery VeronicaC Unavailable [phone] Rey Tay MD Unavailable Duane Rockyanne [place] Unavailable Philip Dumont MD Unavailable [phone] Meredith CarreraC Unavailable [phone] Neil Kent MD Unavailable Juan Pablo Emmanuel MD Unavailable [phone] Audrey Waite PA-C Unavailable [phone] Encounter Details Date Type Department Care Team (Late st Contact Info) Description 01/02/2021 MyC Medical Advice [address] [address] Kierra Eller Social History Tobacco [...] in a usp (including now)? No 08/11/2020 Education Answer Date [...] Description 03/26/2024 11:20 AM CDT Office Visit [facility] Spine and Neurosurgery [address] [facility] [address] [place] [phone] Ebony Cid, MACHINE MAINTENANCE MECHANIC [facility] 500 [place] [address] 03/27/2024 11:00 AM CDT Office Visit [facility] [place] [address] [place] [phone] J[place] David, [place] [address] [facility] [place] [address] 04/19/2024 2:45 PM CDT Office Visit [facility] 830 [place] [phone] Audrey Waite PA-C 420 [facility] [address], [facility] 603 [place], [place] [address] 05/08/2024 1:30 PM CDT Office Visit [facility] [address] [place] [phone] Lauren Claudio PA-C [address] [place] [address] Esha Grimm PA-C [address] [place] [address] 06/21/2024 2:00 PM DEMURRAGE AGENT Office Visit [facility] Neurology [address], [address] [place] [phone] [place] [address] [place] [address] Johnny Penn MD 6545 [place] [address] Scheduled Procedures Name Priority Associated Diagnoses Date/Ti az ESOPHAGOGASTRODUODENOSCOPY Eosinophilic esophagitis Esophageal dysphagia documented as of this encounter Visit Diagnoses Not on filedocumented in this encounter Additional Health Concerns Infection Onset Date Last Indicated Resolved Time Rule Out COVID-19 05/11/2021 05/11/2021 05/13/2021 10:18 AM CDT Rule Out COVID-19 07/13/2021 07/13/2021 07/14/2021 3:04 PM DEMURRAGE AGENT Rule Out COVID-19 07/18/2021 07/18/2021 07/20/2021 1:56 PM DEMURRAGE AGENT COVID-19 07/18/2021 07/18/2021 08/08/2021 11:3 9 PM DEMURRAGE AGENT Rule Out COVID-19 12/18/2021 12/18/2021 12/19/2021 11:34 AM CDT Rule Out COVID-19 02/24/2022 02/24/2022 02/25/2022 1:08 PM CDT Rule Out COVID-19 04/26/2022 04/26/2022 04/26/2022 6:47 AM CDT Rule Out COVID-19 05/17/2022 05/17/2022 05/17/2022 10:20 PM DEMURRAGE AGENT Rule Out COVID-19 06/09/2022 06/09/2022 06/09/2022 9:35 AM DEMURRAGE AGENT COVID-19 06/09/2022 06/09/2022 06/30/2022 11:4 1 PM DEMURRAGE AGENT Rule Out COVID-19 11/10/2022 11/10/2022 11/11/2022 12:17 PM CDT Rule Out COVID-19 03/07/2023 03/07/2023 03/07/2023 1:20 PM CDT Rule Out COVID-19 12/26/2023 12/26/2023 12/26/2023 9:50 AM CDT Assessment Noted Time PHQ-9 Depression Total Score: 6 09/30/19 21 3:25 PM CDT documented as of this encounter Care Teams Engineering Project Designer Relationship Specialty Start Date End Date Marija Edgar APRN SUPERINTENDENT OIL WELL SERVICES PCP - General Nurse Practitioner 04/30/20 04/14/23 Esha Grmim PA-C [address] [place] [address] PCP - General Family Medicine 05/04/23 Lita Oseguera Personal Advocate & Liaison (PAL) 02/28/20 03/27/23 Chanelle Mccann APRN CNM [address] [place] [address] Assigned OBGYN Provider 05/02/2005/09 Kyara De La Fuente, RN Specialty Cartridge Assembler Neurology 06/04/20 03/05/21 Marija Edgar APRN SUPERINTENDENT OIL WELL SERVICES Assigned PCP 06/08/20 04/29/23 Mynor Broussard MD 6363 [facility] 500 [place] [address] Assigned Surgical Provider 06/01/20 11/28/21 Keisha Dotson MD 909 [place] [address] Assigned Neuroscience Provider 06/04/20 04/01/23 Galo Burrell MD Assigned Heart and Vascular Provider 10/05/20 04/02/22 Cristina Wood Financial Resource Worker 02/09/21 02/09/21 Diana Desir, [facility] 3033 [place] [address] Pharmacist Pharmacist 04/17/21 Rain Galaviz PA-C [address] [place] [address] [address] [place] [address] Physician Staff Engineer Dermatology 04/28/21 Summer Lara MD [address] [place] [address] Assigned OBGYN Provider 05/10/2105/23 Summer Lara MD [address] [place] [address] Assigned OBGYN Provider 05/31/21 2 Summer Lara MD [address] [place] [address] Assigned OBGYN Provider 05/24/2105/30 Tavia Wyatt MD [address] [place] [address] Dermatology 07/14/21 Johnny Murillo MD [address] [facility] [address] [place] [address] Assigned Musculoskeletal Provider 08/30/21 03/17/22 Erica Farrell APRN SUPERINTENDENT OIL WELL SERVICES [address] [facility] [address] [place] [address] Nurse Practitioner Cardiovascular Disease 09/09/21 Teresita Bean [facility] [address] [place] [address] Pharmacist Pharmacist 09/24/21 09/29/21 Tavia Wyatt MD Assigned Surgical Provider 11/29/21 05/07/22 [facility] [address] [place] [address] Assigned MTM Pharmacist 01/02/22 Rich Barrett MD 516 [facility] [address] [place] [address] Physician Ophthalmology 01/21/22 Neil Kent MD 500 [place] [address] Dermatology 02/24/22 Roney Story DPM [address] [facility] [address] [place] [address] Assigned Musculoskeletal Provider 03/20/22 08/13/22 Erica Farrell APRN SUPERINTENDENT OIL WELL SERVICES 1700 [place] [address] Assigned Heart and Vascular Provider 04/03/22 04/16/22 Diana Desir, [facility] 3033 [place] [address] Assigned MTM Pharmacist 04/07/22 Jelena David OD [address] [facility] [place] [address] Assigned Surgical Provider 05/08/22 10/08/22 Galo Burrell MD Assigned Heart and Vascular Provider 04/17/22 06/11/22 Livan Sharif MD [address] [place] [address] Cardiovascular Disease 05/14/22 Livan Sharif MD [address] [place] [address] Assigned Heart and Vascular Provider 06/12/22 07/23/22 Catherine Cm MD [address] [place] [address] [address] Cardiovascular Disease 07/21/22 Valery Veronica PA-C [address] [place] [address] Physician Staff Engineer Dermatology 07/21/22 Catherine Cm MD [address] [address] Assigned Heart and Vascular Provider 07/24/22 11/05/22 Johnny Murillo MD [address] [place] [address] Assigned Musculoskeletal Provider 08/14/22 10/08/22 Brea Quinn APRN SUPERINTENDENT OIL WELL SERVICES [address] [place] [address] Nurse Practitioner Dermatology 09/21/22 Brea Quinn APRN SUPERINTENDENT OIL WELL SERVICES [address] [place] [address] Assigned Surgical Provider 10/09/22 [place] [address] [place] [address] [address] Assigned Musculoskeletal Provider 10/09/22 Livan Sharif MD [address] [facility] [place] [address] [place] [address] Assigned Heart and Vascular Provider 11/06/22 11/12/22 Catherine Cm MD [address] [place] [address] Assigned Heart and Vascular Provider 11/13/22 05/27/23 Sydnie Martinez RN Personal Advocate & Liaison (PAL) Family Medicine 03/28/23 07/31/23 Alfonso Renteria MD [address] [facility] 200 [place] [address] Assigned Neuroscience Provider 04/02/23 Cheng Todd PA-C [address] [place] [address] [id number] Assigned PCP 04/30/23 07/15/23 Radha Lomeli APRN SUPERINTENDENT OIL WELL SERVICES [address] [place] [address] Assigned Heart and Vascular Provider 05/28/23 Jelena David OD [address] [facility] [place] [place] [address] Ophthalmology 06/15/23 Pao Joseph RN Personal Advocate & Liaison (PAL) Nurse 08/01/23 11/07/23 Esha Grimm PA-C [address] [place] [address] Assigned PCP 07/16/23 Valery Veronica PA-C [address] [place] [address] Physician Staff Engineer Dermatology 09/19/23 Rey Tay MD [address] [place] [address] MD Gastroenterology 09/20/23 Rocky Zepeda DO 500 [place] [address] Physician Gastroenterology 09/20/23 Philip Dumont MD [address] [place] [address] Physician Ophthalmology 09/22/23 Meredith Carrera PA-C 9 [place] [address] Assigned Gastroenterology Provider 11/01/23 Neil Kent MD [address] [address] Dermatology 11/02/23 [place] [address] [place] [facility] [address] Neurological Surgery 12/26/23 Audrey Waite PA-C 500 [place] [address] Physician Staff Engineer Dermatology 02/28/24 documented as of this encounter
--- OUTSIDE RECORDS SUMMARY | 2024-03-12 19:42 | XMS_ITS | Encounter Summary ---
Author Organization [facility] Address [address] [place] [address] Care Team Providers Care Executive Producer Promos Name Role Phone Lita Oseguera Unavailable Unavailable Marija Edgar APRN PAGINATOR Primary Care Provider Chanelle Gutierrez BACK HOE OPERATOR CNM Unavailab le Kyara De La Fuente RN Unavailable Marija Edgar APRN PAGINATOR Unavailable Unavail able Mynor Broussard MD Unavailable [phone] Keisha Dotson MD Unavailable Stacey Briones SCHOOL TEACHER Unavailable Galo Burrell MD Unavailable Unavailable Lesley Moody CHW Unavailable [phone] Meredith Bedoya Unavailable Unavailable Cristina Wood Unavailable Diana Desir [facility] Unavailable [phone] Rain Galaviz PA-C Unavailable Summer Lara MD Unavailable [phone] Summer Lara MD Unavailable [phone] Summer Lara MD Unavailable Tavia Wyatt MD Unavailable Unavailable Johnny Murillo MD Unavailable [phone] Erica Farrell BACK HOE OPERATOR PAGINATOR Unavailable Vikas Teresita Jesus Watson [facility] Unavailable Tavia Wyatt MD Unavailable Unavailable Kendrick Desirelle Stanislav [facility] Unavailable [phone] Rich Barrett MD Unavailable Neil Kent MD Unavailable Roney Story DPM Unavailable [phone] Erica Farrell BACK HOE OPERATOR PAGINATOR Unavailable Thang Diana Stanislav [facility] Unavailable [phone] Tommy Davidmao Templetone OD Unavailable Galo Burrell MD Unavailable Unavailable Livan Sharif MD Unavailable + Livan Sharif MD Unavailable + Catherine Cm MD Unavailable + Valery Veronica-C Unavailable [phone] Catherine Cm MD Unavailable + Johnny Murillo MD Unavailable [phone] Brea Quinn BACK HOE OPERATOR PAGINATOR Unavailable [phone] Brea Quinn BACK HOE OPERATOR PAGINATOR Unavailable [phone] Jose Francisco Johnson MD Unavailable Livan Sharif MD Unavailable + Catherine Cm MD Unavailable + Sydnie Martinez RN Unavailable Unavailable Alfonso Renteria MD Unavailable [phone] Esha Grimm PA-C Primary Care Provider Cheng Todd PA-C Unavailable Radha Lomeli APRN PAGINATOR Unavailable [phone] Jelena David OD Unavailable Pao Joseph RN Unavailable Unavailable AlfaWicholincoln Medina PA-C Unavailable [phone] Valery Veronica PA-C Unavailable [phone] Rey Tay MD Unavailable Rocky eZpeda DO Unavailable Philip Dumont MD Unavailable [phone] Meredith Carrera PA-C Unavailable [phone] Neil Kent MD Unavailable Juan Pablo Emmanuel MD Unavailable [phone] Audrey Waite PA-C Unavailable [phone] Encounter Details Date Type Department Care Team (Late st Contact Info) Description 10/24/2020 MyC Medical Advice [address] [address] Marija Edgar APRN PAGINATOR Social History Tobacco Use Types Packs/Day Years [...] you attend chur ch or congregational services? More than 4 times per year [...] Answer Date Recorded PHQ-2 Score 3 09/29/2020 [facility] Occupational Stress Questionnaire Answer Date Recorded [...] 11:44 AM CDT Replied to patient via InstaJobt. Anthony Doe PA-C on 10/27/2020 at 11:54 AM documented in this encounter Plan of Treatment Upcoming Encounters Date Type Department Care Team (Late st Contact Info) Description 03/26/2024 11:20 AM CDT Office Visit [facility] Spine and Neurosurgery [address] [place] [phone] Ebony Cid, BACK HOE OPERATOR PAGINATOR 500 [place] [address] 03/27/2024 11:00 AM CDT Office Visit [facility] [place] [address] [facility] [address] [place] [phone] Jelena David, OD [address] [place] [address] 04/19/2024 2:45 PM CDT Office Visit [facility] 830 [place] [phone] Audrey Waite PA-C 420 [facility] [address], [facility] 603 [place], [place] [address] 05/08/2024 1:30 PM CDT Office [facility] [address] [place] [phone] Lauren Claudio PA-C [address] [place], [place] [phone] Esha Grimm PA-C [address] [place] [phone] 06/21/2024 2:00 PM OPERATIONS REPRESENTATIVE Office Visit [facility] [place] [address] [facility], [address] [place] [address] [place] [address] [place], [place] [address] Johnny Penn MD [address] [place] [address] Scheduled Procedures Name Priority Associated Diagnoses Date/Ti va ESOPHAGOGASTRODUODENOSCOPY Eosinophilic esophagitis Esophageal dysphagia documented as of this encounter Visit Diagnoses Not on filedocumented in this encounter Additional Health Concerns Infection Onset Date Last Indicated Resolved Time Rule Out COVID-19 11/05/2020 11/05/2020 11/06/2020 1:09 PM CDT Rule Out COVID-19 05/11/2021 05/11/2021 05/13/2021 10:18 AM CDT Rule Out COVID-19 07/13/2021 07/13/2021 07/14/2021 3:04 PM OPERATIONS REPRESENTATIVE Rule Out COVID-19 07/18/2021 07/18/2021 07/20/2021 1:56 PM OPERATIONS REPRESENTATIVE COVID-19 07/18/2021 07/18/2021 08/08/2021 11:3 9 PM OPERATIONS REPRESENTATIVE Rule Out COVID-19 12/18/2021 12/18/2021 12/19/2021 11:34 AM CDT Rule Out COVID-19 02/24/2022 02/24/2022 02/25/2022 1:08 PM CDT Rule Out COVID-19 04/26/2022 04/26/2022 04/26/2022 6:47 AM CDT Rule Out COVID-19 05/17/2022 05/17/2022 05/17/2022 10:20 PM OPERATIONS REPRESENTATIVE Rule Out COVID-19 06/09/2022 06/09/2022 06/09/2022 9:35 AM OPERATIONS REPRESENTATIVE COVID-19 06/09/2022 06/09/2022 06/30/2022 11:4 1 PM OPERATIONS REPRESENTATIVE Rule Out COVID-19 11/10/2022 11/10/2022 11/11/2022 12:17 PM CDT Rule Out COVID-19 03/07/2023 03/07/2023 03/07/2023 1:20 PM CDT Rule Out COVID-19 12/26/2023 12/26/2023 12/26/2023 9:50 AM CDT Assessment Noted Time PHQ-9 Depression Total Score: 6 09/30/19 3:25 PM CDT documented as of this encounter Care Teams Executive Producer Promos Relationship Specialty Start Date End Date Marija Edgar APRN PAGINATOR PCP - General Nurse Practitioner 04/30/20 04/14/23 Esha Grimm PA-C [address] [place] [phone] PCP - General Family Medicine 05/04/23 Lita Oseguera Personal Advocate & Liaison (PAL) 02/28/20 03/27/23 Chanelle Mccann APRN CNM [address] [place] [address] 200 [place] [address] Assigned OBGYN Provider 05/02/2005/09 Kyara De La Fuente, VJ Specialty Conservation Or Heritage Architect Neurology 06/04/20 03/05/21 Marija Edgar APRN PAGINATOR Assigned PCP 06/08/20 04/29/23 Mynor Broussard MD 6363 [facility] 500 [place] [address] Assigned Surgical Provider 06/01/20 11/28/21 Keisha Dotson MD 909 [place], [place] [address] Assigned Neuroscience Provider 06/04/20 04/01/23 Stacey Briones, SCHOOL TEACHER Lead Conservation Or Heritage Architect Primary Care - CC 08/11/2012/30 Galo Burrell MD Assigned Heart and Vascular Provider 10/05/20 04/02/22 Lesley Moody, [facility] Community Health Worker 10/23/2012/30 Meredith Bedoya Financial Resource Worker 10/23/20 11/23/20 Cristina Wood Financial Resource Worker 02/09/21 02/09/21 Diana Desir, [facility] [address] [place] [address] Pharmacist Pharmacist 04/17/21 Rain Galaviz PA-C [address] [place] [address] [place] [address] Physician Straw Hat Presser Dermatology 04/28/21 Summer Lara MD [address] [place], [place] [address] Assigned OBGYN Provider 05/10/2105/23 Summer Lara MD [address] [place], [place] [address] Assigned OBGYN Provider 05/31/21 2 Summer Lara MD [address] [place], [place] [address] Assigned OBGYN Provider 05/24/2105/30 Tavia Wyatt MD [address] [place] [address] Dermatology 07/14/21 Johnny Murillo MD [address] [facility] [address] [place] [address] Assigned Musculoskeletal Provider 08/30/21 03/17/22 StoErica pereira APRN PAGINATOR [address] [facility] [address] [place] [address] Nurse Practitioner Cardiovascular Disease 09/09/[address] [facility] [address] [facility] [place] [address] Pharmacist Pharmacist 09/24/21 09/29/21 Tavia Wyatt MD Assigned Surgical Provider 11/29/21 05/07/[address] [facility] [address] [place] [address] Assigned MTM Pharmacist 01/02/22 Rich Barrett MD [address] [address] Physician Ophthalmology 01/21/22 Neil Kent MD 500 [place] [address] Dermatology 02/24/22 Roney Story DPM 27576 [facility] 300 [place], [place] 4[address]37 Assigned Musculoskeletal Provider 03/20/22 08/13/22 Erica Farrell APRN PAGINATOR 1700 [place] [address] Assigned Heart and Vascular Provider 04/03/22 04/16/22 Diana Desir, [facility] [address] [place] [address] Assigned MTM Pharmacist 04/07/22 Jelena David OD [address] [place] [address] Assigned Surgical Provider 05/08/22 10/08/22 Galo Burrell MD Assigned Heart and Vascular Provider 04/17/22 06/11/22 Livan Sharif MD [address] [place], [place] [address] Cardiovascular Disease 05/14/22 Livan Sharif MD [address] [place], [place] [address] Assigned Heart and Vascular Provider 06/12/22 07/23/22 Catherine Cm MD [address] [place] [address] Cardiovascular Disease 07/21/22 Valery Veronica, PAUcheC 909 [place], [place] [address] Physician Straw Hat Presser Dermatology 07/21/22 Catherine Cm MD [address] [place] [address] Assigned Heart and Vascular Provider 07/24/22 11/05/22 Johnny Murillo MD [address] 722284 Assigned Musculoskeletal Provider 08/14/22 10/08/22 Brea Quinn APRN PAGINATOR 500 [place] [address] Nurse Practitioner Dermatology 09/21/22 Brea Quinn APRN PAGINATOR 6401 [facility] [place], [place] 5067[address] Assigned Surgical Provider 10/09/22 [place] [address] [facility] 300 [place], [place] 4669[address] Assigned Musculoskeletal Provider 10/09/22 Livan Sharif MD [address] [facility] [address] [place] [address] Assigned Heart and Vascular Provider 11/06/22 11/12/22 Catherine Cm MD [address] [facility] [address] [place] [address] Assigned Heart and Vascular Provider 11/13/22 05/27/23 Sydnie Martinez RN Personal Advocate & Liaison (PAL) Family Medicine 03/28/23 07/31/23 Alfonso Renteria MD 5775 [facility] 200 [place], [place] [address] Assigned Neuroscience Provider 04/02/23 Cheng Todd PA-C [address] [place] [address] Assigned PCP 04/30/23 07/15/23 Radha Lomeli APRN PAGINATOR [address] [place], [place] [address]23[address] Assigned Heart and Vascular Provider 05/28/23 Jelena David OD [address] [place] [address] Ophthalmology 06/15/23 Pao Joseph, VJ Personal Advocate & Liaison (PAL) Nurse 08/01/23 11/07/23 Esha Grimm PA-C [address] [place] [address] Assigned PCP 07/16/23 Valery Veronica PA-C [address] [place] [address] 636425 Physician Straw Hat Presser Dermatology 09/19/23 Rey Tay MD [address] [place] [address] 677715 Gastroenterology 09/20/23 Rocky Zepeda DO [address] [place] [address] 977595 Physician Gastroenterology 09/20/23 Philip Dumont MD [address] [place] [address] 321575 Physician Ophthalmology 09/22/23 Meredith Carrera PA-C [address] [place] [address] Assigned Gastroenterology Provider 11/01/23 Neil Kent MD [address] [address] Dermatology 11/02/23 [place] [address] [place] [address] Neurological Surgery 12/26/23 Audrey Waite, PAUcheC 500 [place] [address] Physician Straw Hat Presser Dermatology 02/28/24 documented as of this encounter
--- OUTSIDE RECORDS SUMMARY | 2024-03-12 19:42 | XMS_ITS | Encounter Summary ---
Author Organization [facility] Address [address] [place] [address] Care Team Providers Care Nibbler Operator Name Role Phone Lita Oseguera Unavailable Unavailable Marija Edgar APRN ELEVATOR SUPERVISOR Primary Care Provider Chanelle Gutierrez RAILCAR FOREMAN CNM Unavailab le Kyara De La Fuente RN Unavailable [phone] Marija Edgar APRN ELEVATOR SUPERVISOR Unavailable Unavail able Mynor Broussard MD Unavailable [phone] Keisha Dotson MD Unavailable Stacey Briones ARABIC LINGUIST Unavailable [phone] Mary Mejia Unavailable Unavailable Galo Burrell MD Unavailable Unavailable Cristina Wood Unavailable Lesley Moody [facility] Unavailable Meredith Bedoya Unavailable Unavailable Cristina Wood Unavailable Diana Desir [facility] Unavailable [phone] Rain Galaviz PA-C Unavailable [phone] Summer Lara MD Unavailable [phone] Summer Lara MD Unavailable [phone] Summer Lara MD Unavailable [phone] Tavia Wyatt MD Unavailable Unavailable HarveyJohnny mckeon MD Unavailable +1- Erica Farrell RAILCAR FOREMAN ELEVATOR SUPERVISOR Unavailable + VikasTeresita [facility] Unavailable Tavia Wyatt MD Unavailable Unavailable Diana Desir [facility] Unavailable [phone] Rich Barrett MD Unavailable Neil Kent MD Unavailable Roney Story DPM Unavailable [phone] Erica Farrell RAILCAR FOREMAN ELEVATOR SUPERVISOR Unavailable + Diana Desir [facility] Unavailable [phone] Jelena David Unavailable [phone] Galo Burrell MD Unavailable Unavailable Livan Sharif MD Unavailable + Livan Sharif MD Unavailable + Catherine Cm MD Unavailable + Valery Veronica PA-C Unavailable [phone] Catherine Cm MD Unavailable + Johnny Murillo MD Unavailable +1- Brea Quinn RAILCAR FOREMAN ELEVATOR SUPERVISOR Unavailable +[phone] Brea Quinn RAILCAR FOREMAN ELEVATOR SUPERVISOR Unavailable [phone] Jose Francisco Johnson MD Unavailable Livan Sharif MD Unavailable + Catherine Cm MD Unavailable + Sydnie Martinez RN Unavailable Unavailable Alfonso Renteria MD Unavailable [phone] Alfa, Esha M PA-C Primary Care Provider [phone] PerezCheng Abe PA-C Unavailable [phone] Radha Lomeli APRN ELEVATOR SUPERVISOR Unavailable [phone] Jelena David OD Unavailable Pao Joseph RN Unavailable Unavailable Wicho Grimmlincoln Medina PA-C Unavailable [phone] Valery Veronica PA-C Unavailable [phone] Rey Tay MD Unavailable Rocky Zepeda DO Unavailable Philip Dumont MD Unavailable [phone] Meredith Carrera PA-C Unavailable [phone] Neil Kent MD Unavailable Juan Pablo Emmanuel MD Unavailable [phone] Audrey Waite PA-C Unavailable [phone] Encounter Details Date Type Department Care Team (Late st Contact Info) Description 10/02/2020 MyC Medical Advice [facility] Care Coordination [address] [place] [phone] Stacey Briones, [facility] Social [...] How often do you attend chur or scientologist services? More than 4 times [...] Answer Date Recorded PHQ-2 Score 3 09/29/2020 [facility] - [...] slept in a chcf (including now)? No 08/11/2020 Education Answer Date [...] Visit [facility] Spine and Neurosurgery [address] [place] [phone] Ebony Cid, [facility] [address] [place] [address] 03/27/2024 11:00 AM CDT [facility] [address] [place] [phone] Jelena David, [address] [facility] [place] [address] 04/19/2024 2:45 PM CDT Office Visit [facility] [address] [place] [phone] Audrey Waite PA-C [address] [facility] B385, [facility] [address] [place], [place] [address] 05/08/2024 1:30 PM CDT Office Visit [facility] [address] [place] [phone] Lauren Claudio PA-C [address] [place], [place] [phone] Esha Grimm PA-C [address] [place] [address] 06/21/2024 2:00 PM [employer] Office Visit [facility] Neurology [facility] [address] [place] [address], [address] [place] [phone] [place] [address] [place] [id number] Johnny Penn MD [address] [facility] [place] [id number] Scheduled Procedures Name Priority Associated Diagnoses Date/Ti me ESOPHAGOGASTRODUODENOSCOPY Eosinophilic esophagitis Esophageal dysphagia documented as of this encounter Visit Diagnoses Not on filedocumented in this encounter Additional Health Concerns Infection Onset Date Last Indicated Resolved Time Rule Out COVID-19 11/05/2020 11/05/2020 11/06/2020 1:09 PM CDT Rule Out COVID-19 05/11/2021 05/11/2021 05/13/2021 10:18 AM CDT Rule Out COVID-19 07/13/2021 07/13/2021 07/14/2021 3:04 PM [employer] Rule Out COVID-19 07/18/2021 07/18/2021 07/20/2021 1:56 PM [employer] COVID-19 07/18/2021 07/18/2021 08/08/2021 11:3 9 PM [employer] Rule Out COVID-19 12/18/2021 12/18/2021 12/19/2021 11:34 AM CDT Rule Out COVID-19 02/24/2022 02/24/2022 02/25/2022 1:08 PM CDT Rule Out COVID-19 04/26/2022 04/26/2022 04/26/2022 6:47 AM CDT Rule Out COVID-19 05/17/2022 05/17/2022 05/17/2022 10:20 PM [employer]IST[employer] Rule Out COVID-19 06/09/2022 06/09/2022 06/09/2022 9:35 AM [employer] COVID-19 06/09/2022 06/09/2022 06/30/2022 11:4 1 PM [employer] Rule Out COVID-19 11/10/2022 11/10/2022 11/11/2022 12:17 PM CDT Rule Out COVID-19 03/07/2023 03/07/2023 03/07/2023 1:20 PM CDT Rule Out COVID-19 12/26/2023 12/26/2023 12/26/2023 9:50 AM CDT Assessment Noted Time PHQ-9 Depression Total Score: 6 09/30/19 3:25 PM CDT documented as of this encounter Care Teams Nibbler Operator Relationship Specialty Start Date End Date Marija Edgar APRN ELEVATOR SUPERVISOR PCP - General Nurse Practitioner 04/30/20 04/14/23 Esha Grimm PA-C [address] [place] [phone] PCP - General Family Medicine 05/04/23 Lita Oseguera Personal Advocate & Liaison (PAL) 02/28/20 03/27/23 Chanelle Mccann APRN CNAdam [address] [address] [address] [place] [address] Assigned OBGYN Provider 05/02/2005/09 Kyara De La Fuente, RN Specialty Bevel Face Stoner And Polisher Neurology 06/04/20 03/05/21 Marija Edgar APRN ELEVATOR SUPERVISOR Assigned PCP 06/08/20 04/29/23 Mynor Broussard MD [address] [facility] [address] [place] [address] Assigned Surgical Provider 06/01/20 11/28/21 Keisha Dotson MD [address] [place] [address] Assigned Neuroscience Provider 06/04/20 04/01/23 Stacey Briones, [facility] Lead Bevel Face Stoner And Polisher Primary Care - CC 08/11/2012/30 Mary Mejia Financial Resource Worker 09/02/20 10/06/20 Galo Burrell MD Assigned Heart and Vascular Provider 10/05/20 04/02/22 Cristina Wood Financial Resource Worker 10/07/20 10/14/20 Lesley Moody, [facility] Community Health Worker 10/23/2012/30 Meredith Bedoya Financial Resource Worker 10/23/20 11/23/20 Nina Cristina Financial Resource Worker 02/09/21 02/09/21 Diana Desir, [facility] [address] [place] [address] Pharmacist Pharmacist 04/17/21 Rain Galaviz PA-C [address] [facility] [place] [address] Physician Booster Assembler Dermatology 04/28/21 Summer Lara MD [address] [place] [address] Assigned OBGYN Provider 05/10/2105/23 Summer Lara MD [address] [place] [address] [id number] Assigned OBGYN Provider 05/31/21 Summer Lara MD [address] [place] [address] [phone] Assigned OBGYN Provider 05/24/2105/30 Tavia yWatt MD [address] [place] [address] Dermatology 07/14/21 Johnny Murillo MD [address] [facility] [address] [place] [address] Assigned Musculoskeletal Provider 08/30/21 03/17/22 Erica Farrell APRN ELEVATOR SUPERVISOR [address] [phone] [place] [address] Nurse Practitioner Cardiovascular Disease 09/09/21 Teresita Bean, [facility] [address] [facility] [place] [address] Pharmacist Pharmacist 09/24/21 09/29/21 Tavia Wyatt MD Assigned Surgical Provider 11/29/21 05/07/22 Diana Desir, [facility] [address] [place] [address] Assigned MTM Pharmacist 01/02/22 Rich Barrett MD [address] 044435 Physician Ophthalmology 01/21/22 Neil Kent MD [address] [place], [place] [phone] Dermatology 02/24/22 Roney Story DPM [address] [facility] [address] [place] [address] Assigned Musculoskeletal Provider 03/20/22 08/13/22 Erica Farrell APRN ELEVATOR SUPERVISOR [address] [place] [address] Assigned Heart and Vascular Provider 04/03/22 04/16/22 Diana Desir, [facility] [address] [place] [address] Assigned MTM Pharmacist 04/07/22 Frankie Jelena GarciaSONJA [address] [place] [address] Assigned Surgical Provider 05/08/22 10/08/22 Galo Burrell MD Assigned Heart and Vascular Provider 04/17/22 06/11/22 Livan Sharif MD [address] [place], [place] [address] Cardiovascular Disease 05/14/22 Livan Sharif MD [address] [place] [address] Assigned Heart and Vascular Provider 06/12/22 07/23/22 Catherine Cm MD [address] [place], [place] 2485[address] Cardiovascular Disease 07/21/22 Valery Veronica, PA-C [address] [place] [address] Physician Booster Assembler Dermatology 07/21/22 Catherine Cm MD [address] [place] [address] Assigned Heart and Vascular Provider 07/24/22 11/05/22 Johnny Murillo MD [address] [address] Assigned Musculoskeletal Provider 08/14/22 10/08/22 Brea Quinn APRN ELEVATOR SUPERVISOR [address] [place] [address] Nurse Practitioner Dermatology 09/21/22 Brea Quinn APRN ELEVATOR SUPERVISOR [address] [facility] [place] [address] Assigned Surgical Provider 10/09/22 [place] [address] [place] [address] Assigned Musculoskeletal Provider 10/09/22 Livan Sharif MD [address], [facility] [address] [place] [address]125 Assigned Heart and Vascular Provider 11/06/22 11/12/22 Catherine Cm MD [address] [facility] [address] [place] [address] Assigned Heart and Vascular Provider 11/13/22 05/27/23 Sydnie Martinez RN Personal Advocate & Liaison (PAL) Family Medicine 03/28/23 07/31/23 Alfonso Renteria MD [address] [facility] [address] [place] [address] Assigned Neuroscience Provider 04/02/23 Cheng Todd PA-C [address] [place] [address] Assigned PCP 04/30/23 07/15/23 Radha Lomeli APRN ELEVATOR SUPERVISOR [address] [place] [address] Assigned Heart and Vascular Provider 05/28/23 Jelena David OD [address] [place] [address] MD Ophthalmology 06/15/23 Pao Joseph, VJ Personal Advocate & Liaison (PAL) Nurse 08/01/23 11/07/23 Esha Grimm PA-C [address] [place] [phone] Assigned PCP 07/16/23 Valery Veronica PA-C [address] [place] [address] [phone] Physician Booster Assembler Dermatology 09/19/23 Rey Tay MD [address] [place] [address] 790225 Gastroenterology 09/20/23 Rocky Zepeda DO [address] [place] [address] 936405 Physician Gastroenterology 09/20/23 Philip Dumont MD [address] [place] [address] [phone] Physician Ophthalmology 09/22/23 Meredith [place]rera PA-C [address] [place] [address] [phone] Assigned Gastroenterology Provider 11/01/23 Neil Kent MD [address] [place] [address] [phone] Dermatology 11/02/23 [place] [address] [place] [address] Neurological Surgery 12/26/23 Audrey Waite, PA-C [address] [place] [address] Physician Booster Assembler Dermatology 02/28/24 documented as of this encounter
--- OUTSIDE RECORDS SUMMARY | 2024-03-12 19:42 | XMS_ITS | Encounter Summary ---
Author Organization [facility] Address [address] [place] [address] Care Team Providers Care Software Consultant Name Role Phone Lita Oseguera Unavailable Unavailable Marija Edgar PRINTED CIRCUIT BOARD LAYOUT DESIGNER RACK PRODUCTION WORKER Primary Care Provider Chanelle Gutierrez PRINTED CIRCUIT BOARD LAYOUT DESIGNER CNM Unavailab le Kyara De La Fuente RN Unavailable [phone] Marija Edgar APRN RACK PRODUCTION WORKER Unavailable Unavail able Mynor Broussard MD Unavailable [phone] Keisha Dotson MD Unavailable Galo Burrell MD Unavailable Unavailable Cristina Wood Unavailable Diana Desir [facility] Unavailable Rain Galaviz PA-C Unavailable Summer Lara MD Unavailable [phone] Summer Lara MD Unavailable [phone] Summer Lara MD Unavailable [phone] Tavia Wyatt MD Unavailable Unavailable Johnny Murillo MD Unavailable [phone] Erica Farrell APRN RACK PRODUCTION WORKER Unavailable Teresita Bean [facility] Unavailable Tavia Wyatt MD Unavailable Unavailable ThangKendrickDiana Stanislav [facility] Unavailable [phone] Rich Barrett MD Unavailable [phone] Neil Kent MD Unavailable Roney Story DPM Unavailable [phone] Erica Farrell PRINTED CIRCUIT BOARD LAYOUT DESIGNER RACK PRODUCTION WORKER Unavailable + Diana Desir [facility] Unavailable [phone] Jelena David OD Unavailable [phone] Galo Burrell MD Unavailable Unavailable Livan Sharif MD Unavailable + Livan Sharif MD Unavailable + Catherine Cm MD Unavailable + Valery Veronica PA-C Unavailable [phone] Catherine Cm MD Unavailable + Johnny Murillo MD Unavailable [phone] Brea Quinn PRINTED CIRCUIT BOARD LAYOUT DESIGNER RACK PRODUCTION WORKER Unavailable [phone] Brea Quinn PRINTED CIRCUIT BOARD LAYOUT DESIGNER RACK PRODUCTION WORKER Unavailable [phone] Jose Francisco Johnson MD Unavailable Livan Sharif MD Unavailable + Catherine Cm MD Unavailable + Sydnie Martinez RN Unavailable Unavailable Alfonso Renteria MD Unavailable [phone] Esha Grimm PA-C Primary Care Provider Cheng Todd PA-C Unavailable [phone] Radha Lomeli PRINTED CIRCUIT BOARD LAYOUT DESIGNER RACK PRODUCTION WORKER Unavailable [phone] Jelena David OD Unavailable [phone] Pao Joseph RN Unavailable Unavailable Alfa Eshalincoln ALCALA-C Unavailable [phone] Valery VeronicaC Unavailable [phone] Rey Tay MD Unavailable Rocky Zepeda DO Unavailable Philip Dumont MD Unavailable [phone] Meredith CarreraC Unavailable [phone] Neil Kent MD Unavailable Juan Pablo Emmanuel MD Unavailable [phone] Audrey WaiteC Unavailable [phone] Encounter Details Date Type Department Care Team (Late st Contact Info) Description 01/06/2021 Orders Only [facility] - Surgical Specialties Service Line [facility] [place] [address] Saurabh Marcial MD [address] [facility] [address] [place] [address] Indication for care in labor [...] Answer Date Recorded PHQ-2 Score 3 09/29/2020 [facility] Answer [...] in a longterm (including now)? No 08/11/2020 Education Answer Date [...] [facility] [address] [facility] [address] [place] [address] Ebony Cid APRN RACK PRODUCTION WORKER [address] [place] [address] 03/27/2024 11:00 AM CDT Office Visit [facility] [address] [facility] [address] [place] [address] Jelena David, [place] [address] [facility] [place] [address] 04/19/2024 2:45 PM CDT Office Visit [facility] [address] [place] [phone] Audrey Waite PA-C [address] [facility] [address], [facility] [address] [place], [place] [address] 05/08/2024 1:30 PM CDT Office Visit [facility] [address] [place] [phone] Lauren Claudio PA-C [address] [place], [place] [phone] Esha Grimm PA-C [address] [place] [phone] 06/21/2024 2:00 PM VACATION SALES ADVISOR Office Visit [facility] Neurology Clin[facility] [address], [address] [place] [phone] [place] [address] [place], [place] [phone] Johnny Penn MD [address] [place] [address] Scheduled Procedures Name Priority Associated Diagnoses Date/Ti ma ESOPHAGOGASTRODUODENOSCOPY Eosinophilic esophagitis Esophageal dysphagia documented as of this encounter Results * Asymptomatic COVID-19 Virus (Coronavirus) by PCR (01/09/2021 10:44 AM CDT) COVID-19 Virus PCR to [facility] - Source Nasopharyngeal 01/09/2021 10:45 AM CDT [facility] COVID-19 Virus PCR to [facility] - Result Test received-See reflex to IDDL test SARS CoV2 (COVID-19) Virus RT-PCR 01/09/2021 6:32 PM CDT [facility], [facility] Specimen from nasopharyngeal structure (specimen) 01/09/2021 10:44 AM CDT 01/09/2021 10:45 AM CDT Saurabh Marcial MD LAB - MICRO GENE RAL ORDERABLES [facility], [facility] [address] [place] [address], [facility] [address] [place] [address], [facility] [phone] documented in this encounter Visit Diagnoses Diagnosis Indication for care in labor and delivery, antepartum- Primary Unspecified indication for care or intervention related to labor and delivery, antepartum documented in this encounter Additional Health Concerns Infection Onset Date Last Indicated Resolved Time Rule Out COVID-19 05/11/2021 05/11/2021 05/13/2021 10:18 AM CDT Rule Out COVID-19 07/13/2021 07/13/2021 07/14/2021 3:04 PM VACATION SALES ADVISOR Rule Out COVID-19 07/18/2021 07/18/2021 07/20/2021 1:56 PM VACATION SALES ADVISOR COVID-19 07/18/2021 07/18/2021 08/08/2021 11:3 9 PM VACATION SALES ADVISOR Rule Out COVID-19 12/18/2021 12/18/2021 12/19/2021 11:34 AM CDT Rule Out COVID-19 02/24/2022 02/24/2022 02/25/2022 1:08 PM CDT Rule Out COVID-19 04/26/2022 04/26/2022 04/26/2022 6:47 AM CDT Rule Out COVID-19 05/17/2022 05/17/2022 05/17/2022 10:20 PM VACATION SALES ADVISOR Rule Out COVID-19 06/09/2022 06/09/2022 06/09/2022 9:35 AM VACATION SALES ADVISOR COVID-19 06/09/2022 06/09/2022 06/30/2022 11:4 1 PM VACATION SALES ADVISOR Rule Out COVID-19 11/10/2022 11/10/2022 11/11/2022 12:17 PM CDT Rule Out COVID-19 03/07/2023 03/07/2023 03/07/2023 1:20 PM CDT Rule Out COVID-19 12/26/2023 12/26/2023 12/26/2023 9:50 AM CDT Assessment Noted Time PHQ-9 Depression Total Score: 6 09/30/19 3:25 PM CDT documented as of this encounter Care Teams Software Consultant Relationship Specialty Start Date End Date Marija Edgar APRN RACK PRODUCTION WORKER PCP - General Nurse Practitioner 04/30/20 04/14/23 Esha Grimm PA-C [address] [place] [phone] PCP - General Family Medicine 05/04/23 Lita Oseguera Personal Advocate & Liaison (PAL) 02/28/20 03/27/23 [place] [address] [address] [facility], [facility] [address] [place] [address] Assigned OBGYN Provider 05/02/2005/09 Kyara De La Fuente, RN Specialty Water Control Station Engineer Neurology 06/04/20 03/05/21 Marija Edgar APRN RACK PRODUCTION WORKER Assigned PCP 06/08/20 04/29/23 Mynor Broussard MD [address] [facility] [address] [place] [address] Assigned Surgical Provider 06/01/20 11/28/21 Keisha Dotson MD [address] [place] [address] Assigned Neuroscience Provider 06/04/20 04/01/23 Galo Burrell MD Assigned Heart and Vascular Provider 10/05/20 04/02/22 Cristina Wood Financial Resource Worker 02/09/21 02/09/21 [facility] [address] [place] [address] Pharmacist Pharmacist 04/17/21 Rain Galaviz PA-C [address] [place] [address] [place] [address] Physician Detective Narcotics And Vice Dermatology 04/28/21 Summer Lara MD [address] [place] [address] [phone] Assigned OBGYN Provider 05/10/2105/23 Summer Lara MD [address] [place] [address] [phone] Assigned OBGYN Provider 05/31/21 2 Summer Lara MD [address] [place] [address] [phone] Assigned OBGYN Provider 05/24/2105/30 Tavia Wyatt MD [address] [place] [address] Dermatology 07/14/21 Johnny Murillo MD [address] [place] [address] Assigned Musculoskeletal Provider 08/30/21 03/17/22 Erica Farrell APRN RACK PRODUCTION WORKER [address] [facility] [address] [place] [address] Nurse Practitioner Cardiovascular Disease 09/09/21 Teresita Bean, [facility] [address] [place] [address] Pharmacist Pharmacist 09/24/21 09/29/21 Tavia Wyatt MD Assigned Surgical Provider 11/29/21 05/07/22 Diana Desir, [facility] [address] [place] [address] Assigned MTM Pharmacist 01/02/22 Rich Barrett MD [address] [facility] [address] [place] [address] Physician Ophthalmology 01/21/22 Neil Kent MD [address] [place] [address] Dermatology 02/24/22 Roney Story DPM [address] [facility] [address] [place], [place] [address] Assigned Musculoskeletal Provider 03/20/22 08/13/22 Erica Farrell APRN RACK PRODUCTION WORKER [address] [place] [address] Assigned Heart and Vascular Provider 04/03/22 04/16/22 Diana Desir, [facility] [address] [place] [address] Assigned MTM Pharmacist 04/07/22 Jelena David OD [address] [facility] [place] [address] Assigned Surgical Provider 05/08/22 10/08/22 Galo Burrell MD Assigned Heart and Vascular Provider 04/17/22 06/11/22 Livan Sharif MD [address] [place], [place] [address] Cardiovascular Disease 05/14/22 Livan Sharif MD [address] [place] [address] Assigned Heart and Vascular Provider 06/12/22 07/23/22 Catherine Cm MD [address] [place] [phone] Cardiovascular Disease 07/21/22 Valery Veronica PA-C [address] [place], [place] [address] Physician Detective Narcotics And Vice Dermatology 07/21/22 Catherine Cm MD [address] [place] [address] Assigned Heart and Vascular Provider 07/24/22 11/05/22 Johnny Murillo MD [address] [facility] [address] [place] [address] Assigned Musculoskeletal Provider 08/14/22 10/08/22 Brea Quinn APRN RACK PRODUCTION WORKER [address] [place], [place] 2932[address] Nurse Practitioner Dermatology 09/21/22 Brea Quinn APRN RACK PRODUCTION WORKER [address] [place], [place] 239622 Assigned Surgical Provider 10/09/22 [place] [address] [facility] [address] [place], [place] [address] Assigned Musculoskeletal Provider 10/09/22 Livan Sharif MD [address], [facility] [address] [place] [address] Assigned Heart and Vascular Provider 11/06/22 11/12/22 Catherine Cm MD [address] [facility] [address] [place], [place] [address] Assigned Heart and Vascular Provider 11/13/22 05/27/23 Sydnie Martinez, VJ Personal Advocate & Liaison (PAL) Family Medicine 03/28/23 07/31/23 Alfonso Renteria MD [address] [facility] [address] [place] [address] Assigned Neuroscience Provider 04/02/23 Cheng Todd PA-C [address] [place] [address] Assigned PCP 04/30/23 07/15/23 Radha Lomeli APRN RACK PRODUCTION WORKER [address] [facility] [address] [place] [address] Assigned Heart and Vascular Provider 05/28/23 Jelena David OD [address] [facility] [place] [address] Ophthalmology 06/15/23 Pao Joseph, VJ Personal Advocate & Liaison (PAL) Nurse 08/01/23 11/07/23 Esha Grimm PA-C [address] [place] [phone] Assigned PCP 07/16/23 Valery Veronica PA-C [address] [place] [address] [id number] Physician Detective Narcotics And Vice Dermatology 09/19/23 Rey Tay MD [address] [place] [address] 672995 Gastroenterology 09/20/23 Rocky Zepeda DO [address] [place] [address] 128675 Physician Gastroenterology 09/20/23 Philip Dumont MD [address] [place] [address] Physician Ophthalmology 09/22/23 Meredith Carrera PA-C [address] [place] [address] Assigned Gastroenterology Provider 11/01/23 Neil Kent MD [address] [address] Dermatology 11/02/23 [place] [address] 835[address] Neurological Surgery 12/26/23 Audrey Waite PA-C 500 [place] [address] Physician Detective Narcotics And Vice Dermatology 02/28/24 documented as of this encounter
--- OUTSIDE RECORDS SUMMARY | 2024-03-12 19:42 | XMS_ITS | Encounter Summary ---
Author Organization [place] Address [address] [place] [address] Care Team Providers Care Assistant Property Manager Name Role Phone Lita Oseguera Unavailable Unavailable Marija Edgar APRN SYSTEMS TECHNICIAN Primary Care Provider Chanelle Gutierrez APRN CNM Unavailab le Kyara De La Fuente RN Unavailable [phone] Marija Edgar APRN SYSTEMS TECHNICIAN Unavailable Unavail able Mynor Broussard MD Unavailable [phone] Keisha Dotson MD Unavailable Stacey Briones [employer] FILLER [employer] DRAINER Unavailable Lesley Moody CHW Unavailable [phone] Mary Mejia Unavailable Unavailable Lita Oseguera Unavailable Unavailable Galo Burrell MD Unavailable Unavailable Cristina Wood Unavailable Lesley Moody CHW Unavailable Meredith Bedoya Unavailable Unavailable Cristina Wood Unavailable Diana Desir [facility] Unavailable Rain Galaviz PA-C Unavailable Summer Lara MD Unavailable [phone] Summer Lara MD Unavailable [phone] Summer Lara MD Unavailable + [phone] Tavia Wyatt MD Unavailable Unavailable SemJohnny mckeon MD Unavailable +1- Erica Farrell PROPAGATOR SYSTEMS TECHNICIAN Unavailable + BeanTeresita H Unavailable Tavia Wyatt MD Unavailable Unavailable Diana Desir [facility] Unavailable [phone] Rich Barrett MD Unavailable + Neil Kent MD Unavailable + Roney Story DPM Unavailable [phone] Erica Farrell PROPAGATOR SYSTEMS TECHNICIAN Unavailable + Diana Desir [facility] Unavailable +[phone] Jelena David Radha Unavailable [phone] Galo Burrell MD Unavailable Unavailable Livan Sharif MD Unavailable + Livan Sharif MD Unavailable + Catherine Cm MD Unavailable + Valery Veronica PA-C Unavailable +[phone] Catherine Cm MD Unavailable + Johnny Murillo MD Unavailable +1- Brea Quinn PROPAGATOR SYSTEMS TECHNICIAN Unavailable +1- Brea Quinn PROPAGATOR SYSTEMS TECHNICIAN Unavailable [phone] Jose Francisco Johnson MD Unavailable + Livan Sharif MD Unavailable + Catherine Cm MD Unavailable + Sydnie Martinez RN Unavailable Unavailable Alfonso Renteria MD Unavailable [phone] Esha Grimm PA-C Primary Care Provider [phone] Cheng Todd PA-C Unavailable Radha Lomeli APRN SYSTEMS TECHNICIAN Unavailable [phone] Jelena David OD Unavailable Pao Joseph RN Unavailable Unavailable Esha Grimm PA-C Unavailable [phone] Valery Veronica PA-C Unavailable [phone] Rey Tay MD Unavailable Rocky Zepeda DO Unavailable Philip Dumont MD Unavailable [phone] Meredith Carrera PA-C Unavailable [phone] Neil Kent MD Unavailable Juan Pablo Emmanuel MD Unavailable [phone] Audrey Waite PA-C Unavailable [phone] Reason for Visit * Reason Onset Date Comments MyChart Communication 09/08/2020 Encounter Details Date Type Department Care Team (Latest Contact Info) Description 09/08/2020 [facility] [address] [address] Marija Edgar APRN SYSTEMS TECHNICIAN MyChart Communication Social History Tobacco Use Types [...] do you attend chur or faith services? More than 4 times per year [...] Answer Date Recorded PHQ-2 Score 0 08/12/2020 [facility] of Occupat ional Health - Occupational Stress [...] a group home (including now)? No 08/11/2020 Education Answer [...] COVID-19? No / Unsure 09/09/2020 10:09 AM TIE CARRIER documented as of this encounter Miscellaneous Notes * Telephone Encounter - Natasha Luis RN - 09/09/2020 7:29 AM CST See [employer] message, cardio ordered, pt cannot view echo on [employer], recommend f/u with cardio, pt also has [...] RN, BSN Message handled by CLINIC NURSE.' CARRIER * Telephone Encounter - Ever Cardozo MA - 09/09/2020 7:08 AM CST Triage, could you please see if results are posted yet in regards to patients ultrasound. Ever Cardozo CMA ([facility]) CARRIER documented in this encounter Plan of Treatment Upcoming Encounters Date Type Department Care Team (Late st Contact Info) Description 03/26/2024 11:20 AM CDT Office Visit [facility] Spine and Neurosurgery [address] [facility] [address] [place] [address] Ebony Cid, PROPAGATOR SYSTEMS TECHNICIAN [address] [place], [place] [phone] 03/27/2024 11:00 AM CDT [facility] [address] [facility] [address] [place] [phone] Jelena David, [address] [facility] [place] [address] 04/19/2024 2:45 PM CDT Office Visit [facility] [address] [place] [phone] Audrey Waite PA-C [address] [facility] [address], [facility] [address] [place] [address] 05/08/2024 1:30 PM CDT Office Visit [facility] [address] [facility] [place] [address] Lauren Claudio PA-C [address] [place] [address] Esha Grimm PA-C [address] [place] [address] 06/21/2024 2:00 PM TIE CARRIER Office Visit [facility] Neurology [facility] [address] [place] [address], [address] [place] [address] [place] [address] [place] [address] Johnny Penn MD [address] [place], [place] [phone] Scheduled Procedures Name Priority Associated Diagnoses Date/Ti [...] Out COVID-19 07/13/2021 07/13/2021 07/14/2021 3:04 PM TIE CARRIER Rule Out COVID-19 07/18/2021 07/18/2021 07/20/2021 1:56 PM TIE CARRIER COVID-19 07/18/2021 07/18/2021 08/08/2021 11:3 9 PM TIE CARRIER Rule Out COVID-19 12/18/2021 12/18/2021 12/19/2021 11:34 AM CDT Rule Out COVID-19 02/24/2022 02/24/2022 02/25/2022 1:08 PM CDT Rule Out COVID-19 04/26/2022 04/26/2022 04/26/2022 6:47 AM CDT Rule Out COVID-19 05/17/2022 05/17/2022 05/17/2022 10:20 PM TIE CARRIER Rule Out COVID-19 06/09/2022 06/09/2022 06/09/2022 9:35 AM TIE CARRIER COVID-19 06/09/2022 06/09/2022 06/30/2022 11:4 1 PM TIE CARRIER Rule Out COVID-19 11/10/2022 11/10/2022 11/11/2022 12:17 PM CDT Rule Out COVID-19 03/07/2023 03/07/2023 03/07/2023 1:20 PM CDT Rule Out COVID-19 12/26/2023 12/26/2023 12/26/2023 9:50 AM CDT Assessment Noted Time PHQ-9 Depression Total Score: 9 06/25/20 20 7:04 AM TIE CARRIER documented as of this encounter Care Teams Assistant Property Manager Relationship Specialty Start Date End Date Marija Edgar APRN SYSTEMS TECHNICIAN PCP - General Nurse Practitioner 04/30/20 04/14/23 Esha Grimm PA-C [address] [place] [phone] PCP - General Family Medicine 05/04/23 Lita Oseguera Personal Advocate & Liaison (PAL) 02/28/20 03/27/23 Chanelle Mccann APRN CNM [address] [address] Assigned OBGYN Provider 05/02/2005/09 Kyara De La Fuente, RN Specialty Morphology Teacher Neurology 06/04/20 03/05/21 Marija Edgar APRN SYSTEMS TECHNICIAN Assigned PCP 06/08/20 04/29/23 Mynor Broussard MD [address] [address] Assigned Surgical Provider 06/01/20 11/28/21 Keisha Dotson MD 9[address] [place] [address] Assigned Neuroscience Provider 06/04/20 04/01/23 Stacey Briones, [facility] Lead Morphology Teacher Primary Care - CC 08/11/2012/30 Lesley Moody, [facility] Community Health Worker 08/11/2010/01 Mary Mejia Financial Resource Worker 09/02/20 10/06/20 Lita Oseguera Personal Advocate & Liaison (PAL) Family Medicine 09/10/20 09/21/20 Galo Burrell MD Assigned Heart and Vascular Provider 10/05/20 04/02/22 Cristina Wood Financial Resource Worker 10/07/20 10/14/20 Lesley Moody, [facility] Community Health Worker 10/23/2012/30 Meredith Bedoya Financial Resource Worker 10/23/20 11/23/20 Cristina Wood Financial Resource Worker 02/09/21 02/09/21 Diana Desir, [facility] [address] [place], [place] [phone] Pharmacist Pharmacist 04/17/21 Rain Galaviz PA-C [address] [place] [address] [place] [address] Physician Larry Operator Dermatology 04/28/21 Summer Lara MD [address] [facility] [place] [address] Assigned OBGYN Provider 05/10/2105/23 Summer Lara MD [address] [place] [address] [phone] Assigned OBGYN Provider 05/31/21 Summer Lara MD [address] [place] [address] Assigned OBGYN Provider 05/24/2105/30 Tavia Wyatt MD [address] [place] [address] Dermatology 07/14/21 Johnny Murillo MD [address] [place] [address] Assigned Musculoskeletal Provider 08/30/21 03/17/22 Erica Farrell APRN SYSTEMS TECHNICIAN [address] [facility] [address] [place] [address] Nurse Practitioner Cardiovascular Disease 09/09/21 Teresita Bean, [facility] [address] [place] [address] Pharmacist Pharmacist 09/24/21 09/29/21 Tavia Wyatt MD Assigned Surgical Provider 11/29/21 05/07/22 Diana Desir, [facility] [address] [place] [address] Assigned MTM Pharmacist 01/02/22 Rich Barrett MD [address] [address] Physician Ophthalmology 01/21/22 Neil Kent MD [address] [place] [address] Dermatology 02/24/22 Roney Story DPM [id number] [address] [address] [place] [address] Assigned Musculoskeletal Provider 03/20/22 08/13/22 Erica Farrell APRN SYSTEMS TECHNICIAN [address] [place] [address] Assigned Heart and Vascular Provider 04/03/22 04/16/22 Diana Desir, [facility] [address] [place] [address] Assigned MTM Pharmacist 04/07/22 Jelena David OD [address] [facility] [address] Assigned Surgical Provider 05/08/22 10/08/22 Galo Burrell MD Assigned Heart and Vascular Provider 04/17/22 06/11/22 Livan Sharif MD [address], [facility] [address] [place] [address] Cardiovascular Disease 05/14/22 Livna Sharif MD [address], [facility] [address] [place] 682115 Assigned Heart and Vascular Provider 06/12/22 07/23/22 Catherine Cm MD [address] [facility] [address] [place] 806[address] Cardiovascular Disease 07/21/22 Valery Veronica, PA-C [address] [place] [address]315 Physician Larry Operator Dermatology 07/21/22 Catherine Cm MD [address] [facility] [address] [place] 373145 Assigned Heart and Vascular Provider 07/24/22 11/05/22 Johnny Murillo MD [address] [place] [address] Assigned Musculoskeletal Provider 08/14/22 10/08/22 Brea Quinn APRN SYSTEMS TECHNICIAN [address] [place] [address] 289005 Nurse Practitioner Dermatology 09/21/22 Brea Quinn APRN SYSTEMS TECHNICIAN [address] [place] [address] [place] 365882 Assigned Surgical Provider 10/09/22 [place] [address] [facility] [address] [place] [address] Assigned Musculoskeletal Provider 10/09/22 Livan Sharif MD [address], [facility] [address] [place] 414155 Assigned Heart and Vascular Provider 11/06/22 11/12/22 Catherine Cm MD [address] [place] [address] [place] 882155 Assigned Heart and Vascular Provider 11/13/22 05/27/23 Sydnie Martinez RN Personal Advocate & Liaison (PAL) Family Medicine 03/28/23 07/31/23 Alfonso Renteria MD [address] [facility] 200 [place], [place] [address] Assigned Neuroscience Provider 04/02/23 Cheng Todd PA-C [address] [place] [address] [phone] Assigned PCP 04/30/23 07/15/23 Radha Lomeli APRN SYSTEMS TECHNICIAN [address] [place] [phone] Assigned Heart and Vascular Provider 05/28/23 Jelena David OD [address] [place] [address] Ophthalmology 06/15/23 Pao Joseph, VJ Personal Advocate & Liaison (PAL) Nurse 08/01/23 11/07/23 Ehsa Grimm PA-C [address] [place] [phone] Assigned PCP 07/16/23 Valery Veronica PA-C [address] [place] [address] 7505[address] Physician Larry Operator Dermatology 09/19/23 Rey Tay MD [address] [place] [address] MD Gastroenterology 09/20/23 Rocky Zepeda DO [address] [place] [address]135 Physician Gastroenterology 09/20/23 Philip Dumont MD [address] [place] [address] 836375 Physician Ophthalmology 09/22/23 Meredith Carrera PA-C [address] [place] [address] 734155 Assigned Gastroenterology Provider 11/01/23 Neil Kent MD [address] [place] [address] Dermatology 11/02/23 [place] [address] [place] [address] Neurological Surgery 12/26/23 Audrey Waite PA-C 500 [place] [address] Physician Larry Operator Dermatology 02/28/24 documented as of this encounter
--- OUTSIDE RECORDS SUMMARY | 2024-03-12 19:42 | XMS_ITS | Encounter Summary ---
Author Organization [facility] Address [address] [place] [address] Care Team Providers Care Photogrammetric Surveyor Name Role Phone Lita Oseguera Unavailable Unavailable Marija Edgar APRN AIRCRAFT SEAT UPHOLSTERER Primary Care Provider Chanelle Gutierrez APRN CNM Unavailab le Kyara De La Fuente RN Unavailable [phone] Marija Edgar APRN AIRCRAFT SEAT UPHOLSTERER Unavailable Unavail able Mynor Broussard MD Unavailable [phone] Keisha Dotson MD Unavailable Stacey Briones PROJECT PORTFOLIO ANALYST Unavailable [phone] Lesley Moody CHW Unavailable Mary Mejia Unavailable Unavailable Lita Oseguera Unavailable Unavailable Galo Burrell MD Unavailable Unavailable Cristina Wood Unavailable Lesley Moody CHW Unavailable Meredith Bedoya Unavailable Unavailable Cristina Wood Unavailable Diana Desir [facility] Unavailable Rain Galaviz PA-C Unavailable Summer Lara MD Unavailable [phone] Summer Lara MD Unavailable [phone] Summer Lara MD Unavailable + [phone] Tavia Wyatt MD Unavailable Unavailable SemJohnny mckeon MD Unavailable +1- Erica Farrell ASSISTANT GM OF CONTENT & DELIVERY AIRCRAFT SEAT UPHOLSTERER Unavailable + BeanTeresita H Unavailable Tavia Wyatt MD Unavailable Unavailable Diana Desir [facility] Unavailable [phone] Rich Barrett MD Unavailable + Neil Kent MD Unavailable + Roney Story DPM Unavailable [phone] Erica Farrell ASSISTANT GM OF CONTENT & DELIVERY AIRCRAFT SEAT UPHOLSTERER Unavailable + Diana Desir [facility] Unavailable [phone] Jelena David Radha Unavailable [phone] Galo Burrell MD Unavailable Unavailable Livan Sharif MD Unavailable + Livan Sharif MD Unavailable + Catherine Cm MD Unavailable + Valery Veronica PA-C Unavailable +[phone] Catherine Cm MD Unavailable + Johnny Murillo MD Unavailable +1- Brea Quinn ASSISTANT GM OF CONTENT & DELIVERY AIRCRAFT SEAT UPHOLSTERER Unavailable +1- Brea Quinn ASSISTANT GM OF CONTENT & DELIVERY AIRCRAFT SEAT UPHOLSTERER Unavailable [phone] Jose Francisco Johnson MD Unavailable + Livan Sharif MD Unavailable + Catherine Cm MD Unavailable + Sydnie Martinez RN Unavailable Unavailable Alfonso Renteria MD Unavailable [phone] Esha Grimm PA-C Primary Care Provider [phone] Cheng Todd PA-C Unavailable Radha Lomeli APRN AIRCRAFT SEAT UPHOLSTERER Unavailable [phone] Jelena David OD Unavailable [phone] Pao Joseph RN Unavailable Unavailable Esha Grimm PA-C Unavailable [phone] Valery Veronica PA-C Unavailable +[phone] Rey Tay MD Unavailable Rocky Zepeda DO Unavailable Philip Dumont MD Unavailable [phone] Meredith Carrera PA-C Unavailable [phone] Neil Kent MD Unavailable Juan Pablo Emmanuel MD Unavailable [phone] Audrey Waite PA-C Unavailable [phone] Reason for Visit * Reason Onset Date Comments MyChart Communication 09/02/2020 Encounter Details Date Type Department Care Team (Latest Contact Info) Description 09/02/2020 [facility] [address] [address] Marija Edgar APRN AIRCRAFT SEAT UPHOLSTERER MyChart Communication Social History Tobacco Use Types [...] How often do you attend chur or church services? More than 4 times [...] Answer Date Recorded PHQ-2 Score 0 08/12/2020 [facility] [place] of Occupat ional Health - Occupational Stress [...] COVID-19? No / Unsure 09/05/2020 2:50 PM CARPENTER SUPERVISOR documented as of this encounter Miscellaneous Notes * Telephone Encounter - Ever Cardozo MA - 09/03/2020 10:34 AM CST Responded to patient as below. Ever Cardozo CMA ([facility]) ENTER SUPERVISOR documented in this encounter Plan of Treatment Upcoming Encounters Date Type Department Care Team (Late st Contact Info) Description 03/26/2024 11:20 AM CDT Office Visit [facility] Spine and Neurosurgery [address] [facility] [address] [place] [address] Ebony Cid, ASSISTANT GM OF CONTENT & DELIVERY AIRCRAFT SEAT UPHOLSTERER 500 [place], [place] [address] 03/27/2024 11:00 AM CDT Office Visit [facility] [address] [facility] [address] [place] [phone] Jelena David, [address] [facility] [address] 04/19/2024 2:45 PM CDT Office Visit [facility] 830 [place] [phone] Audrey Waite PA-C 420 [facility] [address], [facility] 603 [place], [place] [address] 05/08/2024 1:30 PM CDT Office Visit [facility] [address] [place] [phone] Lauren Claudio PA-C [address] [place], [place] [phone] Esha Grimm PA-C [address] [place] [address] 06/21/2024 2:00 PM CARPENTER SUPERVISOR Office Visit [facility] Neurology Clinics - [place] [address] [facility], [address] [place] [phone] [place] [address] [place] [address] Johnny Penn MD [address] [place] [address] Scheduled Procedures Name Priority Associated Diagnoses Date/Ti [...] Out COVID-19 07/13/2021 07/13/2021 07/14/2021 3:04 PM CARPENTER SUPERVISOR Rule Out COVID-19 07/18/2021 07/18/2021 07/20/2021 1:56 PM CARPENTER SUPERVISOR COVID-19 07/18/2021 07/18/2021 08/08/2021 11:3 9 PM CARPENTER SUPERVISOR Rule Out COVID-19 12/18/2021 12/18/2021 12/19/2021 11:34 AM CDT Rule Out COVID-19 02/24/2022 02/24/2022 02/25/2022 1:08 PM CDT Rule Out COVID-19 04/26/2022 04/26/2022 04/26/2022 6:47 AM CDT Rule Out COVID-19 05/17/2022 05/17/2022 05/17/2022 10:20 PM CARPENTER SUPERVISOR Rule Out COVID-19 06/09/2022 06/09/2022 06/09/2022 9:35 AM CARPENTER SUPERVISOR COVID-19 06/09/2022 06/09/2022 06/30/2022 11:4 1 PM CARPENTER SUPERVISOR Rule Out COVID-19 11/10/2022 11/10/2022 11/11/2022 12:17 PM CDT Rule Out COVID-19 03/07/2023 03/07/2023 03/07/2023 1:20 PM CDT Rule Out COVID-19 12/26/2023 12/26/2023 12/26/2023 9:50 AM CDT Assessment Noted Time PHQ-9 Depression Total Score: 9 06/25/20 7:04 AM CARPENTER SUPERVISOR documented as of this encounter Care Teams Photogrammetric Surveyor Relationship Specialty Start Date End Date Marija Edgar APRN AIRCRAFT SEAT UPHOLSTERER PCP - General Nurse Practitioner 04/30/20 04/14/23 Esha Grimm PA-C [address] [place] [address] PCP - General Family Medicine 05/04/23 Lita Oseguera Personal Advocate & Liaison (PAL) 02/28/20 03/27/23 Chanelle Mccann APRN CNM [address] 475[address] Assigned OBGYN Provider 05/02/2005/09 Kyara De La Fuente, RN Specialty Furniture Inspector Neurology 06/04/20 03/05/21 Marija Edgar APRN AIRCRAFT SEAT UPHOLSTERER Assigned PCP 06/08/20 04/29/23 Mynor Broussard MD 6363 [facility] 500 [place], [place] 7[address] Assigned Surgical Provider 06/01/20 11/28/21 Keisha Dotson MD 909 [place], [place] 707795 Assigned Neuroscience Provider 06/04/20 04/01/23 Stacey Briones, [facility] Lead Furniture Inspector Primary Care - CC 08/11/2012/30 Lesley Moody, [facility] Community Health Worker 08/11/2010/01 Mary Mejia Financial Resource Worker 09/02/20 10/06/20 Lita Oseguera Personal Advocate & Liaison (PAL) Family Medicine 09/10/20 09/21/20 Galo Burrell MD Assigned Heart and Vascular Provider 10/05/20 04/02/22 Cristina Wood Financial Resource Worker 10/07/20 10/14/20 Lesley Moody, [facility] Community Health Worker 10/23/2012/30 Meredith Bedoya Financial Resource Worker 10/23/20 11/23/20 Cristina Wood Financial Resource Worker 02/09/21 02/09/21 Diana Desir, [facility] [place], [place] [address] Pharmacist Pharmacist 04/17/21 Rain Galaviz PA-C [address] [place] [address] [address] [facility] [place] [phone] Physician Business Coordinator Dermatology 04/28/21 Summer Lara MD [address] [place] [address] Assigned OBGYN Provider 05/10/2105/23 Summer Lara MD [address] [place] [address] [phone] Assigned OBGYN Provider 05/31/21 2 Summer Lara MD [address] [place], [place] [address] Assigned OBGYN Provider 05/24/2105/30 Tavia Wyatt MD [address] [place] [address] Dermatology 07/14/21 Johnny Murillo MD [address] [place] [address] Assigned Musculoskeletal Provider 08/30/21 03/17/22 Erica Farrell APRN AIRCRAFT SEAT UPHOLSTERER [address] [facility] [address] [place], [place] 04[address] Nurse Practitioner Cardiovascular Disease 09/09/21 Teresita Bean [facility] [address] [place], [place] [phone] Pharmacist Pharmacist 09/24/21 09/29/21 Tavia Wyatt MD Assigned Surgical Provider 11/29/21 05/07/22 [facility] [address]33 [place] [address] Assigned MTM Pharmacist 01/02/22 Rich Barrett MD [address] 380[address] Physician Ophthalmology 01/21/22 Neil Kent MD [address] [place] [address] Dermatology 02/24/22 Roney Story DPM [address] [facility] [address] [place] [address] Assigned Musculoskeletal Provider 03/20/22 08/13/22 Erica Farrell APRN AIRCRAFT SEAT UPHOLSTERER 1700 [place] [address] Assigned Heart and Vascular Provider 04/03/22 04/16/22 Diana Desir [facility] 3033 [place] [address] Assigned MTM Pharmacist 04/07/22 Jelena David OD [address] [facility] [address] Assigned Surgical Provider 05/08/22 10/08/22 Galo Burrell MD Assigned Heart and Vascular Provider 04/17/22 06/11/22 Livan Sharif MD [address] [place] [address] Cardiovascular Disease 05/14/22 Livan Sharif MD [address] [place] 842045 Assigned Heart and Vascular Provider 06/12/22 07/23/22 Catherine Cm MD [address] [place] 866485 Cardiovascular Disease 07/21/22 Valery Veronica, PA-C [address] [place] [address] 709455 Physician Business Coordinator Dermatology 07/21/22 Catherine Cm MD [address] [facility] [facility]00 [place] 609955 Assigned Heart and Vascular Provider 07/24/22 11/05/22 Johnny Murillo MD [address] [place] [address] Assigned Musculoskeletal Provider 08/14/22 10/08/22 Brea Quinn APRN AIRCRAFT SEAT UPHOLSTERER [address] [place] [address] Nurse Practitioner Dermatology 09/21/22 Brea Quinn APRN AIRCRAFT SEAT UPHOLSTERER [address] [place] [address] Assigned Surgical Provider 10/09/22 [place] [address] [address] Assigned Musculoskeletal Provider 10/09/22 Livan Sharif MD [address], [address] [place] [address]45 Assigned Heart and Vascular Provider 11/06/22 11/12/22 Catherine Cm MD [address] [place] [address] [place] [address] Assigned Heart and Vascular Provider 11/13/22 05/27/23 Sydnie Martinez, VJ Personal Advocate & Liaison (PAL) Family Medicine 03/28/23 07/31/23 Alfonso Renteria MD [address]75 [facility] [address] 200 [place] [address] Assigned Neuroscience Provider 04/02/23 Cheng Todd PA-C [address] [place] [address] [id number] Assigned PCP 04/30/23 07/15/23 Radha Lomeli APRN AIRCRAFT SEAT UPHOLSTERER [address] [facility] [address] [place] [address] Assigned Heart and Vascular Provider 05/28/23 Jelena David OD [address] [facility] [place] [address] Ophthalmology 06/15/23 Pao Joseph, VJ Personal Advocate & Liaison (PAL) Nurse 08/01/23 11/07/23 Esha Grimm PA-C [address] [place] [address] Assigned PCP 07/16/23 Valery Veronica PA-C [address] [place] [address] 363595 Physician Business Coordinator Dermatology 09/19/23 Rey Tay MD [address] [place] [address] 898315 MD Gastroenterology 09/20/23 Rocky Zepeda DO 500 [place], [place] 859505 Physician Gastroenterology 09/20/23 Philip Dumont MD 516 [place] [address] Physician Ophthalmology 09/22/23 Meredith Carrera PA-C 9 [place], [place] 282755 Assigned Gastroenterology Provider 11/01/23 Neil Kent MD [address] 503480 Dermatology 11/02/23 [place] [address] 601877 Neurological Surgery 12/26/23 Audrey Waite PA-C 500 [place], [place] 048535 Physician Business Coordinator Dermatology 02/28/24 documented as of this encounter
--- OUTSIDE RECORDS SUMMARY | 2024-03-12 19:43 | XMS_ITS | Encounter Summary ---
Author Organization [facility] Address [address] [place] [address] Care Team Providers Care Bisque Kiln Placer Name Role Phone Lita Oseguera Unavailable Unavailable Marija Edgar APRN ED CASE MANAGER Primary Care Provider Chanelle Gutierrez APRN CNM Unavailab le Kyara De La Fuente RN Unavailable [phone] Marija Edgar APRN ED CASE MANAGER Unavailable Unavail able Mynor Broussard MD Unavailable [phone] Keisha Dotson MD Unavailable [phone] Mary Mejia Unavailable Unavailable Stacey Briones STENO TYPIST Unavailable Lesley Moody CHW Unavailable Mary Mejia Unavailable Unavailable Lita Oseguera Unavailable Unavailable Galo Burrell MD Unavailable Unavailable Cristina Wood Unavailable Lesley Moody CHW Unavailable [phone] Meredith Bedoya Unavailable Unavailable Cristina Wood Unavailable Diana Desir [facility] Unavailable [phone] Rain Galaviz PA-C Unavailable Summer Lara MD Unavailable [phone] Summer Lara MD Unavailable [phone] Summer Lara MD Unavailable + [phone] Tavia Wyatt MD Unavailable Unavailable SemJohnny mckeon MD Unavailable +1- rEica Farrell CAP PARTS CUTTER ED CASE MANAGER Unavailable + BeanTeresita RPH Unavailable Tavia Wyatt MD Unavailable Unavailable Diana Desir H Unavailable [phone] Rich Barrett MD Unavailable [phone] Neil Kent MD Unavailable Roney Story DPM Unavailable [phone] Erica Farrell CAP PARTS CUTTER ED CASE MANAGER Unavailable + Diana Desir RPH Unavailable [phone] Jelena David OD Unavailable [phone] Galo Burrell MD Unavailable Unavailable Livan Sharif MD Unavailable + Livan Sharif MD Unavailable + Catherine Cm MD Unavailable + Valery Veronica PA-C Unavailable [phone] Catherine Cm MD Unavailable + Johnny Murillo MD Unavailable +1- Brea Quinn CAP PARTS CUTTER ED CASE MANAGER Unavailable [phone] Brea Quinn CAP PARTS CUTTER ED CASE MANAGER Unavailable [phone] Jose Francisco Johnson MD Unavailable Livan Sharif MD Unavailable + Catherine Cm MD Unavailable + Sydnie Martinez RN Unavailable Unavailable Alfonso Renteria MD Unavailable [phone] Esha Grimm PA-C Primary Care Provider Cheng Todd PA-C Unavailable Radha Lomeli APRN ED CASE MANAGER Unavailable Jelena David OD Unavailable Pao Joseph RN Unavailable Unavailable Esha Grimm PA-C Unavailable [phone] Valery Veronica PA-C Unavailable [phone] Rey Tay MD Unavailable Rocky Zepeda DO Unavailable Philip Dumont MD Unavailable [phone] Meredith Carrera PA-C Unavailable Neil Kent MD Unavailable Juan Pablo Emmanuel MD Unavailable Audrey Waite PA-C Unavailable [phone] Encounter Details Date Type Department Care Team (Late st Contact Info) Description 07/17/2020 [facility] Advice M Physicians [facility] Epilepsy Care [address] [facility], [address] [place] [address] Keisha Dotson MD 9 [place] [address] Social History Tobacco Use Types [...] COVID-19? No / Unsure 06/24/2020 3:01 PM SLASHER TENDER documented as of this encounter Miscellaneous Notes * Telephone Encounter - Kyara De La Fuente RN - 07/23/2020 1:41 PM CST Patient contacted the office by OX FACTORYsuperior to report intolerability of levetiracetam. She stayed [...] her shewouldn't need medication her whole life. HER TENDER documented in this encounter Plan of Treatment Upcoming Encounters Date Type Department Care Team (Late st Contact Info) Description 03/26/2024 11:20 AM CDT Office Visit [facility] Spine and Neurosurgery [address] [facility] [address] [place] [address] Ebony Cid, [facility] 500 [place] [address] 03/27/2024 11:00 AM CDT Office Visit [place] [address] [facility] [address] [place] [address] Frankie Jelena Garcia, OD [address] [place] [address] 04/19/2024 2:45 PM CDT Office Visit [facility] 830 [place] [phone] Audrey Waite PA-C 420 [facility] [address], [facility] 603 [place] [address] 05/08/2024 1:30 PM CDT Office Visit [facility] [address] [place] [phone] Lauren Claudio PA-C [address] [place], [place] [phone] Esha Grimm PA-C [address] [place] [phone] 06/21/2024 2:00 PM SLASHER TENDER Office Visit [facility] Neurology [address], [address] [place] [address] [place] [address] [place], [place] [phone] Johnny Penn MD 6545 [place] [address] Scheduled Procedures Name Priority Associated Diagnoses Date/Ti nj ESOPHAGOGASTRODUODENOSCOPY Eosinophilic esophagitis Esophageal dysphagia documented as of this encounter Visit Diagnoses Not on filedocumented in this encounter Additional Health Concerns Infection Onset Date Last Indicated Resolved Time Rule Out COVID-19 07/30/2020 07/30/2020 07/30/2020 7:11 PM SLASHER TENDER Rule Out COVID-19 08/30/2020 08/30/2020 08/30/2020 5:05 PM SLASHER TENDER Rule Out COVID-19 09/24/2020 09/24/2020 09/24/2020 9:24 AM CDT Rule Out COVID-19 11/05/2020 11/05/2020 11/06/2020 1:09 PM CDT Rule Out COVID-19 05/11/2021 05/11/2021 05/13/2021 10:18 AM CDT Rule Out COVID-19 07/13/2021 07/13/2021 07/14/2021 3:04 PM SLASHER TENDER Rule Out COVID-19 07/18/2021 07/18/2021 07/20/2021 1:56 PM SLASHER TENDER COVID-19 07/18/2021 07/18/2021 08/08/2021 11:3 9 PM SLASHER TENDER Rule Out COVID-19 12/18/2021 12/18/2021 12/19/2021 11:34 AM CDT Rule Out COVID-19 02/24/2022 02/24/2022 02/25/2022 1:08 PM CDT Rule Out COVID-19 04/26/2022 04/26/2022 04/26/2022 6:47 AM CDT Rule Out COVID-19 05/17/2022 05/17/2022 05/17/2022 10:20 PM SLASHER TENDER Rule Out COVID-19 06/09/2022 06/09/2022 06/09/2022 9:35 AM SLASHER TENDER COVID-19 06/09/2022 06/09/2022 06/30/2022 11:4 1 PM SLASHER TENDER Rule Out COVID-19 11/10/2022 11/10/2022 11/11/2022 12:17 PM CDT Rule Out COVID-19 03/07/2023 03/07/2023 03/07/2023 1:20 PM CDT Rule Out COVID-19 12/26/2023 12/26/2023 12/26/2023 9:50 AM CDT Assessment Noted Time PHQ-9 Depression Total Score: 9 06/25/20 20 7:04 AM SLASHER TENDER documented as of this encounter Care Teams Bisque Kiln Placer Relationship Specialty Start Date End Date Marija Edgar APRN ED CASE MANAGER PCP - General Nurse Practitioner 04/30/20 04/14/23 Esha Grimm PA-C [address] [place] [address] PCP - General Family Medicine 05/04/23 Lita Oseguera Personal Advocate & Liaison (PAL) 02/28/20 03/27/23 Chanelle Mccann APRN CNM [address] [place] [address] 200 [place] [address] Assigned OBGYN Provider 05/02/2005/09 Kyara De La Fuente, RN Specialty Metal Furniture Assembler Neurology 06/04/20 03/05/21 Marija Edgar APRN ED CASE MANAGER Assigned PCP 06/08/20 04/29/23 Mynor Broussard MD 6363 [facility] 500 [place] [address] Assigned Surgical Provider 06/01/20 11/28/21 Keisha Dotson MD 909 [place] [address] Assigned Neuroscience Provider 06/04/20 04/01/23 Mary Mejia Financial Resource Worker 08/07/20 08/21/20 Stacey Briones, STENO TYPIST Lead Metal Furniture Assembler Primary Care - CC 08/11/2012/30 Lesley Moody, [...] 02/09/21 Diana Desir, [facility] 30[address] [place], [place] [address] Pharmacist Pharmacist 04/17/21 Rain Galaviz PA-C [address] [place] [address] [address] [place] [place], [place] [phone] Physician Sales Representative Education Courses Dermatology 04/28/21 Summer Lara MD [address] [place] [address] 738954 Assigned OBGYN Provider 05/10/2105/23 Summer Lara MD [address] [place] [address] 845484 Assigned OBGYN Provider 05/31/21 2 Summer Lara MD [address] [place] [address] Assigned OBGYN Provider 05/24/2105/30 Tavia Wyatt MD [address] [place] [address] Dermatology 07/14/21 Johnny Murillo MD [address] [place] [address] Assigned Musculoskeletal Provider 08/30/21 03/17/22 Erica Farrell, CAP PARTS CUTTER ED CASE MANAGER [address] [place] [address] Nurse Practitioner Cardiovascular Disease 09/09/21 Teresita Bean, [facility] [address] [place], [place] [phone] Pharmacist Pharmacist 09/24/21 09/29/21 Tavia Wyatt MD Assigned Surgical Provider 11/29/21 05/07/22 Diana [facility]irCO[facility] 3033 [facility] [place] [address] Assigned MTM Pharmacist 01/02/22 Rich Barrett MD 516 [facility] 9A [place], [place] [address] Physician Ophthalmology 01/21/22 Neil Kent MD 500 [place], [place] [phone] Dermatology 02/24/22 Roney Story DPM [address] [facility] [address] [place], [place] [address]757 Assigned Musculoskeletal Provider 03/20/22 08/13/22 Erica Farrell APRN ED CASE MANAGER 1700 [place] [address] Assigned Heart and Vascular Provider 04/03/22 04/16/22 Diana Desir, [facility] 3033 [place] [address] Assigned MTM Pharmacist 04/07/22 Jelena David OD [address] [place] [address] Assigned Surgical Provider 05/08/22 10/08/22 Galo Burrell MD Assigned Heart and Vascular Provider 04/17/22 06/11/22 Livan Sharif MD [address] [place] [address] Cardiovascular Disease 05/14/22 Livan Sharif MD [address] [place] [address] Assigned Heart and Vascular Provider 06/12/22 07/23/22 Catherine Cm MD [address] [place] 885065 Cardiovascular Disease 07/21/22 Valery Veronica, PAUcheC 909 [place] [address] Physician Sales Representative Education Courses Dermatology 07/21/22 Catherine Cm MD [address] [facility] [address] [facility] [address] [place] [address] Assigned Heart and Vascular Provider 07/24/22 11/05/22 Johnny Murillo MD [address] 071524 Assigned Musculoskeletal Provider 08/14/22 10/08/22 Brea Quinn APRN ED CASE MANAGER 500 [place], [place] [phone] Nurse Practitioner Dermatology 09/21/22 Brea Quinn APRN ED CASE MANAGER 6401 [facility] [place] 348702 Assigned Surgical Provider 10/09/22 [place] [address] 589997 Assigned Musculoskeletal Provider 10/09/22 Livan Sharif MD [address] [facility] [address] [place] [address] Assigned Heart and Vascular Provider 11/06/22 11/12/22 Catherine Cm MD [address] [facility] [address] [place] [address]125 Assigned Heart and Vascular Provider 11/13/22 05/27/23 Sydnie Martinez RN Personal Advocate & Liaison (PAL) Family Medicine 03/28/23 07/31/23 Alfonso eRnteria MD [address] [facility] [address] 200 [place] [address] Assigned Neuroscience Provider 04/02/23 Cheng Todd PA-C [address] [place] [address] Assigned PCP 04/30/23 07/15/23 Radha Lomeli APRN ED CASE MANAGER 6405 [facility] [address] [place] [address] Assigned Heart and Vascular Provider 05/28/23 Jelena David OD [address] [place] [address] Ophthalmology 06/15/23 Pao Joseph, VJ Personal Advocate & Liaison (PAL) Nurse 08/01/23 11/07/23 Esha Grimm PA-C [address] [place] [address] Assigned PCP 07/16/23 Valery Veronica PA-C [address] [place] [address] 685585 Physician Sales Representative Education Courses Dermatology 09/19/23 Rey Tay MD [address] [place] [address] 295675 Gastroenterology 09/20/23 Rocky Zepeda DO [address] [place] [address] 654105 Physician Gastroenterology 09/20/23 Philip Dumont MD 516 [place] [address] Physician Ophthalmology 09/22/23 Meredith Carrera PA-C [address] [place] [address] Assigned Gastroenterology Provider 11/01/23 Neil Kent MD [address] [place] [address] Dermatology 11/02/23 [place] [address] 111457 Neurological Surgery 12/26/23 Audrey Waite PA-C 500 [place] [address] Physician Sales Representative Education Courses Dermatology 02/28/24 documented as of this encounter
--- OUTSIDE RECORDS SUMMARY | 2024-03-12 19:43 | XMS_ITS | Encounter Summary ---
Author Organization [facility] Address [address] [place] [address] Care Team Providers Care Tower Dragline Operator Name Role Phone Lita Oseguera Unavailable Unavailable Marija Edgar APRN SPRING FORGER Primary Care Provider Chanelle Gutierrez APRN CNM Unavailab le Kyara De La Fuente RN Unavailable [phone] Marija Edgar APRN SPRING FORGER Unavailable Unavail able Mynor Broussard MD Unavailable [phone] Keisha Dotson MD Unavailable Mary Mejia Unavailable Unavailable Stacey Briones RESEARCH ADMINISTRATOR Unavailable Lesley Moody CHW Unavailable [phone] Mary Mejia Unavailable Unavailable Lita Oseguera Unavailable Unavailable Galo Burrell MD Unavailable Unavailable Cristina Wood Unavailable Lesley oMody CHW Unavailable Meredith Bedoya Unavailable Unavailable Cristina Wood Unavailable Diana Desir [facility] Unavailable [phone] Rain Galaviz PA-C Unavailable Summer Lara MD Unavailable [phone] Summer Lara MD Unavailable [phone] Summer Lara MD Unavailable + [phone] Tavia Wyatt MD Unavailable Unavailable SemJohnny mckeon MD Unavailable +1- Erica Farrell DEPARTMENT HEAD SPRING FORGER Unavailable + BeanTeresita RPH Unavailable Tavia Wyatt MD Unavailable Unavailable Diana Desir H Unavailable [phone] Rich Barrett MD Unavailable [phone] Neil Kent MD Unavailable Roney Story DPM Unavailable [phone] Erica Farrell DEPARTMENT HEAD SPRING FORGER Unavailable + Diana Desir RPH Unavailable [phone] Jelena David OD Unavailable [phone] Galo Burrell MD Unavailable Unavailable Livan Sharif MD Unavailable + Livan Sharif MD Unavailable + Catherine Cm MD Unavailable + Valery Veronica PA-C Unavailable [phone] Catherine Cm MD Unavailable + Johnny Murillo MD Unavailable +1- Brea Quinn DEPARTMENT HEAD SPRING FORGER Unavailable [phone] Brea Quinn DEPARTMENT HEAD SPRING FORGER Unavailable [phone] Jose Francisco Johnson MD Unavailable Livan Sharif MD Unavailable + Catherine Cm MD Unavailable + Sydnie Martinez RN Unavailable Unavailable Alfonso Renteria MD Unavailable [phone] Esha Grimm PA-C Primary Care Provider Cheng Todd PA-C Unavailable Radha Lomeli APRN SPRING FORGER Unavailable Jelena David OD Unavailable Pao Joseph RN Unavailable Unavailable Esha GrimmC Unavailable [phone] Valery Veronica PA-C Unavailable Rey Tay MD Unavailable Rocky Zepeda DO Unavailable Philip Dumont MD Unavailable Meredith Carrera PA-C Unavailable [phone] Neil Kent MD Unavailable Juan Pablo Emmanuel MD Unavailable [phone] Audrey Waite PA-C Unavailable [phone] Encounter Details Date Type Department Care Team (Late st Contact Info) Description 08/07/2020 MyC Medical Advice [facility] [address] [place] [phone] Lesley Moody, [facility] Social History Tobacco Use Types [...] Answer Date Recorded PHQ-2 Score 3 06/24/2020 [facility] [place] of Occupat ional Health - Occupational Stress [...] COVID-19? No / Unsure 08/06/2020 2:03 PM FAMILY AND CONSUMER SCIENCES PROFESSOR documented as of this encounter Plan of Treatment Upcoming Encounters Date Type Department Care Team (Late st Contact Info) Description 03/26/2024 11:20 AM CDT Office Visit [facility] [address] [place] [phone] Ebony Cid, DEPARTMENT HEAD SPRING FORGER [address] [place] [address] 03/27/2024 11:00 AM CDT [facility] [address] [facility] [address] [place] [phone] Jelena David, OD [address] [facility] [place] [address] 04/19/2024 2:45 PM CDT Office Visit [facility] [address] [place] [address] Audrey Waite PA-C [address] [facility] [address], [facility] [address] [place], [place] [address] 05/08/2024 1:30 PM CDT Office Visit [facility] [address] [place] [phone] Lauren Claudio PA-C [address] [place], [place] [phone] Esha Grimm PA-C [address] [place] [address] 06/21/2024 2:00 PM FAMILY AND CONSUMER SCIENCES PROFESSOR Office Visit [facility] [place] [address] [facility], [address] [place] [phone] [place] [address] [place] [address] Johnny Penn MD [address] [place] [address] Scheduled Procedures Name Priority Associated Diagnoses Date/Ti ks ESOPHAGOGASTRODUODENOSCOPY Eosinophilic esophagitis Esophageal dysphagia documented as of this encounter Visit Diagnoses Not on filedocumented in this encounter Additional Health Concerns Infection Onset Date Last Indicated Resolved Time Rule Out COVID-19 08/30/2020 08/30/2020 08/30/2020 5:05 PM FAMILY AND CONSUMER SCIENCES PROFESSOR Rule Out COVID-19 09/24/2020 09/24/2020 09/24/2020 9:24 AM CDT Rule Out COVID-19 11/05/2020 11/05/2020 11/06/2020 1:09 PM CDT Rule Out COVID-19 05/11/2021 05/11/2021 05/13/2021 10:18 AM CDT Rule Out COVID-19 07/13/2021 07/13/2021 07/14/2021 3:04 PM FAMILY AND CONSUMER SCIENCES PROFESSOR Rule Out COVID-19 07/18/2021 07/18/2021 07/20/2021 1:56 PM FAMILY AND CONSUMER SCIENCES PROFESSOR COVID-19 07/18/2021 07/18/2021 08/08/2021 11:3 9 PM FAMILY AND CONSUMER SCIENCES PROFESSOR Rule Out COVID-19 12/18/2021 12/18/2021 12/19/2021 11:34 AM CDT Rule Out COVID-19 02/24/2022 02/24/2022 02/25/2022 1:08 PM CDT Rule Out COVID-19 04/26/2022 04/26/2022 04/26/2022 6:47 AM CDT Rule Out COVID-19 05/17/2022 05/17/2022 05/17/2022 10:20 PM FAMILY AND CONSUMER SCIENCES PROFESSOR Rule Out COVID-19 06/09/2022 06/09/2022 06/09/2022 9:35 AM FAMILY AND CONSUMER SCIENCES PROFESSOR COVID-19 06/09/2022 06/09/2022 06/30/2022 11:4 1 PM FAMILY AND CONSUMER SCIENCES PROFESSOR Rule Out COVID-19 11/10/2022 11/10/2022 11/11/2022 12:17 PM CDT Rule Out COVID-19 03/07/2023 03/07/2023 03/07/2023 1:20 PM CDT Rule Out COVID12/26/2023 12/26/2023 12/26/2023 9:50 AM CDT Assessment Noted Time PHQ-9 Depression Total Score: 9 06/25/20 20 7:04 AM FAMILY AND CONSUMER SCIENCES PROFESSOR documented as of this encounter Care Teams Tower Dragline Operator Relationship Specialty Start Date End Date Marija Edgar APRN SPRING FORGER PCP - General Nurse Practitioner 04/30/20 04/14/23 Esha Grimm PA-C [address] [place] [phone] PCP - General Family Medicine 05/04/23 Lita Oseguera Personal Advocate & Liaison (PAL) 02/28/20 03/27/23 Chanelle Mccann APRN CNM [address] [place] [address] [address] [place] [address] Assigned OBGYN Provider 05/02/2005/09 Kyara De La Fuente, RN Specialty Open Winder Neurology 06/04/20 03/05/21 Marija Edgar APRN SPRING FORGER Assigned PCP 06/08/20 04/29/23 Mynor Broussard MD [address] [facility] [address] [place] [address] Assigned Surgical Provider 06/01/20 11/28/21 Keisha Dotson MD [address] [place], [place] [phone] Assigned Neuroscience Provider 06/04/20 04/01/23 Mary Mejia Financial Resource Worker 08/07/20 08/21/20 Stacey Briones, MARIANGEL Lead [facility] - [facility] 08/11/2012/30 Lesley Moody, [facility] Community Health Worker 08/11/2010/01 NikiatimothyMary Financial Resource Worker 09/02/20 10/06/20 Lita Oseguera Personal Advocate & Liaison (PAL) Family Medicine 09/10/20 09/21/20 Galo Burrell MD Assigned Heart and Vascular Provider 10/05/20 04/02/22 Cristina Wood Financial Resource Worker 10/07/20 10/14/20 Lesley Moody, [facility] Community Health Worker 10/23/2012/30 Meredith Bedoya Financial Resource Worker 10/23/20 11/23/20 Cristina Wood Financial Resource Worker 02/09/21 02/09/21 [facility] [address] [place] [address] Pharmacist Pharmacist 04/17/21 Rain Galaviz PA-C [address] [place] [address] [address] [place], [place] [phone] Physician Project Surveyor Dermatology 04/28/21 Summer Lara MD [address] [place] [address] 550494 Assigned OBGYN Provider 05/10/2105/23 Summer Lara MD [address] [place] [address] Assigned OBGYN Provider 05/31/21 2 Summer Lara MD [address] [place] [address] Assigned OBGYN Provider 05/24/2105/30 Tavia Wyatt MD [address] [place] [address] Dermatology 07/14/21 Johnny Murillo MD [address] [place] [address] Assigned Musculoskeletal Provider 08/30/21 03/17/22 Erica Farrell APRN SPRING FORGER [address] [facility] [address] [place] [address] Nurse Practitioner Cardiovascular Disease 09/09/21 [facility] [address] [place] [address] Pharmacist Pharmacist 09/24/21 09/29/21 Tavia Wyatt MD Assigned Surgical Provider 11/29/21 05/07/22 [facility] [address] [place] [address] Assigned MTM Pharmacist 01/02/22 Rich Barrett MD [address] [facility] [address] [place], [place] [phone] Physician Ophthalmology 01/21/22 Neil Kent MD [address] [place] [address] [phone] Dermatology 02/24/22 Roney Story DPM [address] [facility] [address] [place] [address] Assigned Musculoskeletal Provider 03/20/22 08/13/22 Erica Farrell APRN SPRING FORGER [address] [place] [address] Assigned Heart and Vascular Provider 04/03/22 04/16/22 Diana Desir, [facility] [address] [place], [place] 965[address] Assigned MTM Pharmacist 04/07/22 Jelena David OD [address] [facility] [place] [address] Assigned Surgical Provider 05/08/22 10/08/22 Galo Burrell MD Assigned Heart and Vascular Provider 04/17/22 06/11/22 Livan Sharif MD [address] [facility]00 [place] [address] Cardiovascular Disease 05/14/22 Livan Sharif MD [address] [facility]00 [place] [address] Assigned Heart and Vascular Provider 06/12/22 07/23/22 Catherine Cm MD [address] [facility]00 [place] [id number] Cardiovascular Disease 07/21/22 Valery Veronica, PAUcheC [address] [place] [address] Physician Project Surveyor Dermatology 07/21/22 Catherine Cm MD [address] [facility] [place] [address] Assigned Heart and Vascular Provider 07/24/22 11/05/22 Johnny Murillo MD [address] [place] [address] Assigned Musculoskeletal Provider 08/14/22 10/08/22 Brea Quinn APRN SPRING FORGER [address] [place] [address] [phone] Nurse Practitioner Dermatology 09/21/22 Brea Quinn APRN SPRING FORGER [address] [place] [address] 212782 Assigned Surgical Provider 10/09/22 [place] [address] [address] Assigned Musculoskeletal Provider 10/09/22 Livan Sharif MD [address] [facility] [place] [address] Assigned Heart and Vascular Provider 11/06/22 11/12/22 Catherine Cm MD [address] [facility] [place] [address] Assigned Heart and Vascular Provider 11/13/22 05/27/23 Sydnie Martinez RN Personal Advocate & Liaison (PAL) Family Medicine 03/28/23 07/31/23 Alfonso Renteria MD [address] [facility] [address] [place] [address] Assigned Neuroscience Provider 04/02/23 Cheng Todd PA-C [address] [place] [address] Assigned PCP 04/30/23 07/15/23 Radha Lomeli APRN SPRING FORGER [address] [facility] [address] [place] [address] Assigned Heart and Vascular Provider 05/28/23 Jelena David OD [facility] [facility] [place] [address] Ophthalmology 06/15/23 Pao Joseph, VJ Personal Advocate & Liaison (PAL) Nurse 08/01/23 11/07/23 Esha Grimm PA-C [address] [place] [address] Assigned PCP 07/16/23 Valery Veronica PA-C [address] [place] [address] Physician Project Surveyor Dermatology 09/19/23 Rey Tay MD [address] [place] [address] [phone] Gastroenterology 09/20/23 Rocky Zepeda DO [address] [place] [address] Physician Gastroenterology 09/20/23 Philip Dumont MD [address] [place] [address] Physician Ophthalmology 09/22/23 Meredith Carrera PA-C [address] [place] [address] Assigned Gastroenterology Provider 11/01/23 Neil Kent MD [address] [place] [address] [phone] MD Dermatology 11/02/23 [place] [address] 509287 Neurological Surgery 12/26/23 Audrey Waite PA-C 500 [place] [address] Physician Project Surveyor Dermatology 02/28/24 documented as of this encounter
--- OUTSIDE RECORDS SUMMARY | 2024-03-12 19:43 | XMS_ITS | Encounter Summary ---
Author Organization [facility] Address [address] [place] [address] Care Team Providers Care Mounter Sousaphones Name Role Phone Lita Oseguera Unavailable Unavailable Marija Edgar APRN OUTPATIENT DIETITIAN Primary Care Provider Chanelle Gutierrez APRN CNM Unavailab le Kyara De La Fuente RN Unavailable [phone] Marija Edgar APRN OUTPATIENT DIETITIAN Unavailable Unavail able Mynor Broussard MD Unavailable [phone] Keisha Dotson MD Unavailable Stacey Briones FLANGE MACHINE OPERATOR Unavailable [phone] Lesley Moody CHW Unavailable [phone] Mary Mejia Unavailable Unavailable Lita Oseguera Unavailable Unavailable Galo Burrell MD Unavailable Unavailable Cristina Wood Unavailable Lesley Moody CHW Unavailable Meredith Bedoya Unavailable Unavailable Cristina Wood Unavailable Diana Desir [facility] Unavailable Rain Galaviz PA-C Unavailable Summer Lara MD Unavailable [phone] Summer Lara MD Unavailable [phone] Summer Lara MD Unavailable + [phone] Tavia Wyatt MD Unavailable Unavailable SemJohnny mckeon MD Unavailable +1- Erica Farrell ICE GUARD TESTER OUTPATIENT DIETITIAN Unavailable + BeanTeresita H Unavailable Tavia Wyatt MD Unavailable Unavailable Diana Desir [facility] Unavailable [phone] Rcih Barrett MD Unavailable + Neil Kent MD Unavailable + Roney Story DPM Unavailable [phone] Erica Farrell ICE GUARD TESTER OUTPATIENT DIETITIAN Unavailable + Diana Desir [facility] Unavailable +[phone] Jelena David Radha Unavailable [phone] Galo Burrell MD Unavailable Unavailable Livan Sharif MD Unavailable + Livan Sharif MD Unavailable + Catherine Cm MD Unavailable + Valery Veronica PA-C Unavailable +[phone] Catherine Cm MD Unavailable + Johnny Murillo MD Unavailable +1- Brea Quinn ICE GUARD TESTER OUTPATIENT DIETITIAN Unavailable +1- Brea Quinn ICE GUARD TESTER OUTPATIENT DIETITIAN Unavailable [phone] Jose Francisco Johnson MD Unavailable + Livan Sharif MD Unavailable + Catherine Cm MD Unavailable + Sydnie Martinez RN Unavailable Unavailable Alfonso Renteria MD Unavailable [phone] Esha Grimm PA-C Primary Care Provider [phone] Cheng Todd PA-C Unavailable Radha Lomeli APRN OUTPATIENT DIETITIAN Unavailable [phone] Jelena David OD Unavailable Pao Joseph RN Unavailable Unavailable Esha Grimm PA-C Unavailable [phone] Valery Veronica PA-C Unavailable [phone] Rey Tay MD Unavailable Rocky Zepeda DO Unavailable Philip Dumont MD Unavailable [phone] Meredith Carrera PA-C Unavailable [phone] Neil Kent MD Unavailable Juan Pablo Emmanuel MD Unavailable [phone] Audrey Waite PA-C Unavailable [phone] Reason for Visit * Reason Onset Date Comments Patient/info Update 08/31/2020 appointment request Encounter Details Date Type Department Care Team (Late st Contact Info) Description 08/31/2020 MyC Medical Advice [address] [address] Marija Edgar APRN CNP Patient/info [...] How often do you attend chur or zoroastrianism services? More than 4 times per year [...] Answer Date Recorded PHQ-2 Score 0 08/12/2020 [facility] of Occupat ional Health - Occupational Stress [...] COVID-19? No / Unsure 09/03/2020 12:11 PM COMPOSITION STONE APPLICATOR documented as of this encounter Miscellaneous Notes * Telephone Encounter - Maryjane Mccallum RN - 09/01/2020 7:21 AM COMPOSITION STONE APPLICATOR Patient sent message requesting office visit with [...] PM) Office Visit with Marija Edgar APRN OUTPATIENT DIETITIAN [facility] [address] [facility] [phone] Maryjane Mccallum Registered Nurse [facility] OSITION STONE APPLICATOR documented in this encounter Plan of Treatment Upcoming Encounters Date Type Department Care Team (Late st Contact Info) Description 03/26/2024 11:20 AM CDT Office Visit [facility] Spine and Neurosurgery [address] [facility] [address] [place] [address] Ebony Cid APRN OUTPATIENT DIETITIAN [address] [place] [address] 03/27/2024 11:00 AM CDT Office Visit [facility] [address] [facility] [address] [place] [phone] [place], [place] [address] [facility] [place] [address] 04/19/2024 2:45 PM CDT Office Visit [facility] [address] [place] [phone] Audrey Waite PA-C [address] [facility] [address], [facility] [address] [place] [address] 05/08/2024 1:30 PM CDT Office Visit [facility] [address] [place] [phone] Lauren Claudio PA-C [address] [place], [place] [phone] Esha Grimm PA-C [address] [place] [phone] 06/21/2024 2:00 PM COMPOSITION STONE APPLICATOR Office Visit [facility] Neurology [facility] [address] [facility], [address] [place] [address] [place] [address] [place] [address] Johnny Penn MD [address] [place] [address] Scheduled Procedures Name Priority Associated [...] Out COVID-19 07/13/2021 07/13/2021 07/14/2021 3:04 PM COMPOSITION STONE APPLICATOR Rule Out COVID-19 07/18/2021 07/18/2021 07/20/2021 1:56 PM COMPOSITION STONE APPLICATOR COVID-19 07/18/2021 07/18/2021 08/08/2021 11:3 9 PM COMPOSITION STONE APPLICATOR Rule Out COVID-19 12/18/2021 12/18/2021 12/19/2021 11:34 AM CDT Rule Out COVID-19 02/24/2022 02/24/2022 02/25/2022 1:08 PM CDT Rule Out COVID-19 04/26/2022 04/26/2022 04/26/2022 6:47 AM CDT Rule Out COVID-19 05/17/2022 05/17/2022 05/17/2022 10:20 PM COMPOSITION STONE APPLICATOR Rule Out COVID-19 06/09/2022 06/09/2022 06/09/2022 9:35 AM COMPOSITION STONE APPLICATOR COVID-19 06/09/2022 06/09/2022 06/30/2022 11:4 1 PM COMPOSITION STONE APPLICATOR Rule Out COVID-19 11/10/2022 11/10/2022 11/11/2022 12:17 PM CDT Rule Out COVID-19 03/07/2023 03/07/2023 03/07/2023 1:20 PM CDT Rule Out COVID-19 12/26/2023 12/26/2023 12/26/2023 9:50 AM CDT Assessment Noted Time PHQ-9 Depression Total Score: 9 06/25/20 20 7:04 AM COMPOSITION STONE APPLICATOR documented as of this encounter Care Teams Mounter Sousaphones Relationship Specialty Start Date End Date Marija Edgar APRN OUTPATIENT DIETITIAN PCP - General Nurse Practitioner 04/30/20 04/14/23 Esha Grimm PA-C [address] [place] [phone] PCP - General Family Medicine 05/04/23 Lita Oseguera Personal Advocate & Liaison (PAL) 02/28/20 03/27/23 Chanelle Mccann APRN CNM [address] [place] [address]657 Assigned OBGYN Provider 05/02/2005/09 Kyara De La Fuente, VJ Specialty Export Clerk Neurology 06/04/20 03/05/21 Marija Edgar APRN OUTPATIENT DIETITIAN Assigned PCP 06/08/20 04/29/23 Mynor Broussard MD [address] [place] [address] [address] Assigned Surgical Provider 06/01/20 11/28/21 Keisha Dotson MD [address] [place] [address] Assigned Neuroscience Provider 06/04/20 04/01/23 Stacey Briones, [facility] Lead Export Clerk Primary Care - CC 08/11/2012/30 Lesley Moody, [facility] Community Health Worker 08/11/2010/01 Mary Mejia Financial Resource Worker 09/02/20 10/06/20 Lita Oseguera Personal Advocate & Liaison (PAL) Family Medicine 09/10/20 09/21/20 Galo Burrell MD Assigned Heart and Vascular Provider 10/05/20 04/02/22 Cristina Wood Financial Resource Worker 10/07/20 10/14/20 Lesley Moody, [facility] Community Health Worker 10/23/2012/30 Meredith Bedoya Financial Resource Worker 10/23/20 11/23/20 Cristina Wood Financial Resource Worker 02/09/21 02/09/21 Diana Desir, [facility] [address] [place] [address] Pharmacist Pharmacist 04/17/21 Rain Galaviz PA-C [address] [facility] [address] [facility] [place] [address] Physician Planning And Analysis Manager Dermatology 04/28/21 Summer Lara MD [address] [facility] [place] [address] Assigned OBGYN Provider 05/10/2105/23 Summer Lara MD [address] [place] [address] Assigned OBGYN Provider 05/31/21 Summer Lara MD [address] [facility] [place] [address] Assigned OBGYN Provider 05/24/2105/30 Tavia Wyatt MD [address] [facility] [place] [address] Dermatology 07/14/21 Johnny Murillo MD [address] [facility] [address] [place] [address] Assigned Musculoskeletal Provider 08/30/21 03/17/22 Erica Farrell APRN OUTPATIENT DIETITIAN [address] [facility] [address] [place] [address] Nurse Practitioner Cardiovascular Disease 09/09/21 Teresita Bean [facility] [address] [place] [address] Pharmacist Pharmacist 09/24/21 09/29/21 Tavia Wyatt MD Assigned Surgical Provider 11/29/21 05/07/22 Diana Desir, [facility] [address] [place] [address] Assigned MTM Pharmacist 01/02/22 Rich Barrett MD [address] [facility], [address] [address] Physician Ophthalmology 01/21/22 Neil Kent MD [address] [place], [place] [phone] Dermatology 02/24/22 Roney Story DPM [address] [facility] [address] [place] [address] Assigned Musculoskeletal Provider 03/20/22 08/13/22 Erica Farrell APRN OUTPATIENT DIETITIAN [address] [place] [address] Assigned Heart and Vascular Provider 04/03/22 04/16/22 Diana Desir, [facility] [address] [place] [address] Assigned MTM Pharmacist 04/07/22 Jelena David OD [address] [facility] [place] [address] Assigned Surgical Provider 05/08/22 10/08/22 Galo Burrell MD Assigned Heart and Vascular Provider 04/17/22 06/11/22 Livan Sharif MD [address] [facility] LISETH Sylvia, [facility] [address] [place] [address] Cardiovascular Disease 05/14/22 Livan Sharif MD [address], [place] [address] Assigned Heart and Vascular Provider 06/12/22 07/23/22 Catherine Cm MD [address] [place] [address] Cardiovascular Disease 07/21/22 Valery Veronica, PAUcheC [address] [place] [phone] Physician Planning And Analysis Manager Dermatology 07/21/22 Catherine Cm MD [address] [facility] [place] [address] Assigned Heart and Vascular Provider 07/24/22 11/05/22 Johnny Murillo MD [address] [place] [address]224 Assigned Musculoskeletal Provider 08/14/22 10/08/22 Brea Quinn APRN OUTPATIENT DIETITIAN [address] [place] [address] [phone] Nurse Practitioner Dermatology 09/21/22 Brea Quinn APRN OUTPATIENT DIETITIAN [address] [place] [address] [place] [address] Assigned Surgical Provider 10/09/22 [place] [address] [facility] [address] [place] [address] Assigned Musculoskeletal Provider 10/09/22 Livan Sharif MD [address], [facility] [address] [place] [address] Assigned Heart and Vascular Provider 11/06/22 11/12/22 Catherine Cm MD [address] [facility] [address] [place] [address] Assigned Heart and Vascular Provider 11/13/22 05/27/23 Sydnie Martinez RN Personal Advocate & Liaison (PAL) Family Medicine 03/28/23 07/31/23 Alfonso Renteria MD [address] [facility] [address] [place] [address] Assigned Neuroscience Provider 04/02/23 Cheng Todd PA-C [address] [place] [address] Assigned PCP 04/30/23 07/15/23 Radha Lomeli, ARLENE OUTPATIENT DIETITIAN [address] [place] [address] Assigned Heart and Vascular Provider 05/28/23 Jelena David OD [address] [facility] [place] [address] Ophthalmology 06/15/23 Pao Joseph, VJ Personal Advocate & Liaison (PAL) Nurse 08/01/23 11/07/23 Esha Grimm PA-C [address] [place] [address] Assigned PCP 07/16/23 Valery Veronica PA-C [address] [place] [address] Physician Planning And Analysis Manager Dermatology 09/19/23 Rey Tay MD [address] [place] [address] MD Gastroenterology 09/20/23 Rocky Zepeda DO [address] [place] [address] 007455 Physician Gastroenterology 09/20/23 Philip Dumont MD [address] [place] [address] Physician Ophthalmology 09/22/23 Meredith Carrera PA-C [address] [place] [address] Assigned Gastroenterology Provider 11/01/23 Neil Kent MD [address] [address] Dermatology 11/02/23 [place] [address] [place] [id number] Neurological Surgery 12/26/23 Audrey Waite PA-C [address] [place] [address] [phone] Physician Planning And Analysis Manager Dermatology 02/28/24 documented as of this encounter
--- OUTSIDE RECORDS SUMMARY | 2024-03-12 19:43 | XMS_ITS | Encounter Summary ---
Author Organization [facility] Address [address] [place] [address] Care Team Providers Care Melon Packer Name Role Phone Lita Oseguera Unavailable Unavailable Marija Edgar APRN SERVICE STATION HELPER Primary Care Provider Chanelle Gutierrez APRN CNM Unavailab le Kyara De La Fuente RN Unavailable [phone] Marija Edgar APRN SERVICE STATION HELPER Unavailable Unavail able Mynor Broussard MD Unavailable [phone] Keisha Dotson MD Unavailable Mary Mejia Unavailable Unavailable Stacey Briones PIPELINES MANAGER Unavailable [phone] Lesley Moody CHW Unavailable Mary Mejia Unavailable Unavailable Lita Oseguera Unavailable Unavailable Galo Burrell MD Unavailable Unavailable Cristina Wood Unavailable Lesley Moody CHW Unavailable Meredith Bedoya Unavailable Unavailable Cristina Wood Unavailable Diana Desir [facility] Unavailable Rain Galaviz PA-C Unavailable Summer Lara MD Unavailable [phone] Summer Lara MD Unavailable [phone] Summer Lara MD Unavailable + [phone] Tavia Wyatt MD Unavailable Unavailable SemJohnny mckeon MD Unavailable +1- Erica Farrell BATH TESTER SERVICE STATION HELPER Unavailable + BeanTeresita RPH Unavailable Tavia Wyatt MD Unavailable Unavailable Diana Desir H Unavailable [phone] Rich Barrett MD Unavailable [phone] Neil Kent MD Unavailable Roney Story DPM Unavailable [phone] Erica Farrell BATH TESTER SERVICE STATION HELPER Unavailable + Diana Desir RPH Unavailable [phone] Jelena Dvaid OD Unavailable [phone] Galo Burrell MD Unavailable Unavailable Livan Sharif MD Unavailable + Livan Sharif MD Unavailable + Catherine Cm MD Unavailable + Valery Veronica PA-C Unavailable [phone] Catherine Cm MD Unavailable + Johnny Murillo MD Unavailable +1- Brea Quinn BATH TESTER SERVICE STATION HELPER Unavailable [phone] Brea Quinn BATH TESTER SERVICE STATION HELPER Unavailable [phone] Jose Francisco Johnson MD Unavailable Livan Sharif MD Unavailable + Catherine Cm MD Unavailable + Sydnie Martinez RN Unavailable Unavailable Alfonso Renteria MD Unavailable [phone] Esha Grimm PA-C Primary Care Provider Cheng Todd PA-C Unavailable Radha Lomeli APRN SERVICE STATION HELPER Unavailable Jelena David OD Unavailable Pao Joseph RN Unavailable Unavailable Esha Grimm PA-C Unavailable [phone] Valery Veronica PA-C Unavailable Rey Tay MD Unavailable Rocky Zepeda DO Unavailable Philip Dumont MD Unavailable [phone] Meredith Carrera PA-C Unavailable Neil Kent MD Unavailable Juan Pablo Emmanuel MD Unavailable [phone] Audrey Waite PA-C Unavailable [phone] Encounter Details Date Type Department Care Team (Latest Contact Info) Description 07/29/2020 MyC Medical Advice [address] [address] Marija Edgar APRN CNP Palpitations [...] COVID-19? No / Unsure 07/30/2020 4:53 PM HOT BILLET SHEAR OPERATOR documented as of this encounter Miscellaneous Notes * Telephone Encounter - Marija Edgar APRN SERVICE STATION HELPER - 07/30/2020 10:21 AM HOT BILLET SHEAR OPERATOR Responded via MyChart Marija Edgar APRN SERVICE STATION HELPER on 07/30/2020 at 10:28 AM BILLET SHEAR OPERATOR documented in this encounter Plan of Treatment Upcoming Encounters Date Type Department Care Team (Late st Contact Info) Description 03/26/2024 11:20 AM CDT Office Visit [facility] Spine and Neurosurgery [address] [facility] [address] [place] [address] Ebony Cid APRN SERVICE STATION HELPER [address] [place] [address] 03/27/2024 11:00 AM CDT Office Visit [facility] [address] [facility] [address] [place] [phone] Jelena David, [address] [place] [address] 04/19/2024 2:45 PM CDT Office Visit [facility] [address] [place] [phone] Audrey Waite PA-C [address] [facility] [address], [facility] [address] [place] [address] 05/08/2024 1:30 PM CDT Office Visit [facility] [address] [place] [phone] Lauren Claudio PA-C [address] [place], [place] [phone] Esha Grimm PA-C [address] [place] [phone] 06/21/2024 2:00 PM HOT BILLET SHEAR OPERATOR Office Visit [facility] Neurology [facility] [address] [facility], [address] [place] [address] [place] [address] [place] [address] Johnny Penn MD [address] [facility] [place] [address] Scheduled Procedures Name Priority Associated Diagnoses Date/Ti mo ESOPHAGOGASTRODUODENOSCOPY Eosinophilic esophagitis Esophageal dysphagia documented as of this encounter Visit Diagnoses Diagnosis Palpitations- Primary documented in this encounter Additional Health Concerns Infection Onset Date Last Indicated Resolved Time Rule Out COVID-19 07/30/2020 07/30/2020 07/30/2020 7:11 PM HOT BILLET SHEAR OPERATOR Rule Out COVID-19 08/30/2020 08/30/2020 08/30/2020 5:05 PM HOT BILLET SHEAR OPERATOR Rule Out COVID-19 09/24/2020 09/24/2020 09/24/2020 9:24 AM CDT Rule Out COVID-19 11/05/2020 11/05/2020 11/06/2020 1:09 PM CDT Rule Out COVID-19 05/11/2021 05/11/2021 05/13/2021 10:18 AM CDT Rule Out COVID-19 07/13/2021 07/13/2021 07/14/2021 3:04 PM HOT BILLET SHEAR OPERATOR Rule Out COVID-19 07/18/2021 07/18/2021 07/20/2021 1:56 PM HOT BILLET SHEAR OPERATOR COVID-19 07/18/2021 07/18/2021 08/08/2021 11:3 9 PM HOT BILLET SHEAR OPERATOR Rule Out COVID-19 12/18/2021 12/18/2021 12/19/2021 11:34 AM CDT Rule Out COVID-19 02/24/2022 02/24/2022 02/25/2022 1:08 PM CDT Rule Out COVID-19 04/26/2022 04/26/2022 04/26/2022 6:47 AM CDT Rule Out COVID-19 05/17/2022 05/17/2022 05/17/2022 10:20 PM HOT BILLET SHEAR OPERATOR Rule Out COVID-19 06/09/2022 06/09/2022 06/09/2022 9:35 AM HOT BILLET SHEAR OPERATOR COVID-19 06/09/2022 06/09/2022 06/30/2022 11:4 1 PM HOT BILLET SHEAR OPERATOR Rule Out COVID-19 11/10/2022 11/10/2022 11/11/2022 12:17 PM CDT Rule Out COVID-19 03/07/2023 03/07/2023 03/07/2023 1:20 PM CDT Rule Out COVID-19 12/26/2023 12/26/2023 12/26/2023 9:50 AM CDT Assessment Noted Time PHQ-9 Depression Total Score: 9 06/25/20 20 7:04 AM HOT BILLET SHEAR OPERATOR documented as of this encounter Care Teams Melon Packer Relationship Specialty Start Date End Date Marija Edgar APRN SERVICE STATION HELPER PCP - General Nurse Practitioner 04/30/20 04/14/23 Esha Grimm PAUcheC [address] [place] [phone] PCP - General Family Medicine 05/04/23 Lita Oseguera Personal Advocate & Liaison (PAL) 02/28/20 03/27/23 Chanelle Mccann APRN CNM [address] [facility], [facility] [address] [place] [address] Assigned OBGYN Provider 05/02/2005/09 Kyara De La Fuente, RN Specialty Administrative Specialist Neurology 06/04/20 03/05/21 Marija Edgar APRN SERVICE STATION HELPER Assigned PCP 06/08/20 04/29/23 Mynor Broussard MD [address] [address] Assigned Surgical Provider 06/01/20 11/28/21 Keisha Dotson MD [address] [place] [address] Assigned Neuroscience Provider 06/04/20 04/01/23 Mary Mejia Financial Resource Worker 08/07/20 08/21/20 Stacey Briones, [facility] Lead Administrative Specialist Primary Care - CC 08/11/2012/30 Lesley Moody, [facility] Community Health Worker 08/11/2010/01 Mary Mejia Financial Resource Worker 09/02/20 10/06/20 Lita Oseguera Personal Advocate & Liaison (PAL) Family Medicine 09/10/20 09/21/20 Glao Burrell MD Assigned Heart and Vascular Provider 10/05/20 04/02/22 Cristina Wood Financial Resource Worker 10/07/20 10/14/20 Lesley Moody, [facility] Community Health Worker 10/23/2012/30 Meredith Bedoya Financial Resource Worker 10/23/20 11/23/20 Cristina Wood Financial Resource Worker 02/09/21 02/09/21 Diana Desir, [facility] [address] [place] [address] Pharmacist Pharmacist 04/17/21 Rain Galaviz PA-C [address] [place] [address] [place] [address] Physician Software Quality Analyst Dermatology 04/28/21 Summer Lara MD [address] [facility] [place] [address] Assigned OBGYN Provider 05/10/2105/23 Summer Lara MD [address] [place] [address] [place] [address] Assigned OBGYN Provider 05/31/21 2 Summer Lara MD [address] [place] [address] Assigned OBGYN Provider 05/24/2105/30 Tavia Wyatt MD [address] [place] [address] Dermatology 07/14/21 Johnny Murillo MD [facility] [facility] [address] [place] [address] Assigned Musculoskeletal Provider 08/30/21 03/17/22 Erica Farrell APRN SERVICE STATION HELPER [address] [facility] [address] [place] [address] Nurse Practitioner Cardiovascular Disease 09/09/21 Teresita Bean [facility] [place] [address] [place] [address] Pharmacist Pharmacist 09/24/21 09/29/21 Tavia Wyatt MD Assigned Surgical Provider 11/29/21 05/07/22 Diana Desir, [facility] [address] [place] [address] Assigned MTM Pharmacist 01/02/22 Rich Barrett MD [address] [phone] Physician Ophthalmology 01/21/22 Neil Kent MD [address] [place], [place] 6[address] Dermatology 02/24/22 Roney Story DPM [address] [facility] [address] [place], [place] [address] Assigned Musculoskeletal Provider 03/20/22 08/13/22 Erica Farrell APRN SERVICE STATION HELPER [address] [place] [address] Assigned Heart and Vascular Provider 04/03/22 04/16/22 Diana Desir, [facility] [address] [place] [address] Assigned MTM Pharmacist 04/07/22 Jelena David OD [address] [place] [address] Assigned Surgical Provider 05/08/22 10/08/22 Galo Burrell MD Assigned Heart and Vascular Provider 04/17/22 06/11/22 Livan Sharif MD [address], [facility] [address] [place] [address] Cardiovascular Disease 05/14/22 Livan Sharif MD [address], [facility] [place] [address] Assigned Heart and Vascular Provider 06/12/22 07/23/22 Catherine Cm MD [address] [facility]00 [place] [address] Cardiovascular Disease 07/21/22 Valery Veronica, PAUcheC [address] [place] [address] Physician Software Quality Analyst Dermatology 07/21/22 Catherine Cm MD [address] [facility]00 [place] 165125 Assigned Heart and Vascular Provider 07/24/22 11/05/22 Johnny Murillo MD [address] [place] [address] Assigned Musculoskeletal Provider 08/14/22 10/08/22 Brea Quinn APRN SERVICE STATION HELPER [address] [place] [address] Nurse Practitioner Dermatology 09/21/22 Brea Quinn APRN SERVICE STATION HELPER [address] [place] [address] [place] [address] Assigned Surgical Provider 10/09/22 [place] [address] [facility] [address] [place] [address] Assigned Musculoskeletal Provider 10/09/22 Livan Sharif MD [address], [facility] [address] [place] [address] Assigned Heart and Vascular Provider 11/06/22 11/12/22 Catherine Cm MD [address] [facility] [address] [place] [address]305 Assigned Heart and Vascular Provider 11/13/22 05/27/23 Sydnie Martinez RN Personal Advocate & Liaison (PAL) Family Medicine 03/28/23 07/31/23 Alfonso Renteria MD [address] [facility] 200 [place] [address] Assigned Neuroscience Provider 04/02/23 Cheng Todd PA-C [address] [place] [phone] Assigned PCP 04/30/23 07/15/23 Radha Lomeli APRN SERVICE STATION HELPER [address] [place] [address] Assigned Heart and Vascular Provider 05/28/23 Jelena David OD [address] [facility] [place] [phone] MD Ophthalmology 06/15/23 Pao Joseph, RN Personal Advocate & Liaison (PAL) Nurse 08/01/23 11/07/23 Esha Grimm PA-C [address] [place] [address] Assigned PCP 07/16/23 Valery Veronica PA-C [address] [place] [address] Physician Software Quality Analyst Dermatology 09/19/23 Rey Tay MD [address] [place] [address] Gastroenterology 09/20/23 Rocky Zepeda DO [address] [place] [address] 653965 Physician Gastroenterology 09/20/23 Philip Dumont MD [address] [place] [address] 899675 Physician Ophthalmology 09/22/23 Meredith Carrera PA-C [address] [place] [address] 074125 Assigned Gastroenterology Provider 11/01/23 Neil Kent MD [address] [address] Dermatology 11/02/23 [place] [address] [place] [address] Neurological Surgery 12/26/23 Audrey Waite PA-C 500 [place], [place] 7[address] Physician Software Quality Analyst Dermatology 02/28/24 documented as of this encounter
--- OUTSIDE RECORDS SUMMARY | 2024-03-12 19:43 | XMS_ITS | Encounter Summary ---
Author Organization [facility] Address [address] [place] [address] Care Team Providers Care Accelerator Operator Name Role Phone Lita Oseguera Unavailable Unavailable Marija Edgar APRN BASEBALL WINDER Primary Care Provider Chanelle Gutierrez APRN CNM Unavailab le Kyara De La Fuente RN Unavailable Marija Edgar APRN BASEBALL WINDER Unavailable Unavail able Mynor Broussard MD Unavailable [phone] Keisha Dotson MD Unavailable [phone] Mary Mejia Unavailable Unavailable Stacey Briones TECHNICAL BUSINESS ANALYST Unavailable Lesley Moody CHW Unavailable Mary Mejia Unavailable Unavailable Lita Oseguera Unavailable Unavailable Galo Burrell MD Unavailable Unavailable Cristina Wood Unavailable Lesley Moody CHW Unavailable Meredith Bedoya Unavailable Unavailable Cristina Wood Unavailable Diana Desir [facility] Unavailable Rain Galaviz PA-C Unavailable [phone] Summer Lara MD Unavailable [phone] Summer Lara MD Unavailable [phone] Summer Lara MD Unavailable + [phone] Tavia Wyatt MD Unavailable Unavailable SemJohnny mckeon MD Unavailable +1- Erica Farrell CUSTOMER INSIGHT ANALYST BASEBALL WINDER Unavailable + BeanTeresita RPH Unavailable Tavia Wyatt MD Unavailable Unavailable Diana Desir H Unavailable [phone] Rich Barrett MD Unavailable [phone] Neil Kent MD Unavailable Roney Story DPM Unavailable [phone] Erica Farrell CUSTOMER INSIGHT ANALYST BASEBALL WINDER Unavailable + Diana Desir RPH Unavailable [phone] Jelena David OD Unavailable [phone] Galo Burrell MD Unavailable Unavailable Livan Sharif MD Unavailable + Livan Sharif MD Unavailable + Catherine Cm MD Unavailable + Valery Veronica PA-C Unavailable [phone] Catherine Cm MD Unavailable + Johnny Murillo MD Unavailable +1- Brea Quinn CUSTOMER INSIGHT ANALYST BASEBALL WINDER Unavailable [phone] Brea Quinn CUSTOMER INSIGHT ANALYST BASEBALL WINDER Unavailable [phone] Jose Francisco Johnson MD Unavailable Livan Sharif MD Unavailable + Catherine Cm MD Unavailable + Sydnie Martinez RN Unavailable Unavailable Alfonso Renteria MD Unavailable [phone] Esha Grimm PA-C Primary Care Provider [phone] Cheng Todd PA-C Unavailable [phone] Radha Lomeli APRN BASEBALL WINDER Unavailable Jelena David OD Unavailable Pao Joseph RN Unavailable Unavailable Esha Grimm PA-C Unavailable [phone] Valery Veronica PA-C Unavailable Rey Tay MD Unavailable Rocky Zepeda DO Unavailable Philip Dumont MD Unavailable [phone] Meredith Carrera PA-C Unavailable [phone] Neil Kent MD Unavailable Juan Pablo Emmanuel MD Unavailable [phone] Audrey Waite PA-C Unavailable Encounter Details Date Type Department Care Team (Late st Contact Info) Description 07/29/2020 MyC Medical Advice M [facility] Epilepsy Care [address] [facility], [address] [place] [address] Keisha Dotson MD 9 [place] [address] Social History Tobacco Use Types [...] COVID-19? No / Unsure 07/30/2020 4:53 PM ECONOMICS ANALYST documented as of this encounter Plan of Treatment Upcoming Encounters Date Type Department Care Team (Late st Contact Info) Description 03/26/2024 11:20 AM CDT Office Visit [facility] Spine and Neurosurgery [address] [facility] [address] [place] [address] Ebony Cid, CUSTOMER INSIGHT ANALYST [facility] [address] [place], [place] 486135 03/27/2024 11:00 AM CDT Office Visit [facility] [address] [facility] [address] [place] [phone] Jelena David, [address] [place] [address] 04/19/2024 2:45 PM CDT Office Visit [facility] 830 [place] [phone] Audrey Waite PA-C 420 [facility] [address]385, [facility] 603 [place], [place] [address] 05/08/2024 1:30 PM CDT Office Visit [facility] [address] [place] [address] Lauren Claudio PA-C [address] [place] [address] Esha Grimm PA-C [address] [place] [address] 06/21/2024 2:00 PM ECONOMICS ANALYST Office Visit [facility] Neurology [facility] [address] [facility], [address] [place] [address] [place] [address] [place] [address] Johnny Penn MD [address] [place] [address] Scheduled Procedures Name Priority Associated Diagnoses Date/Ti vt ESOPHAGOGASTRODUODENOSCOPY Eosinophilic esophagitis Esophageal dysphagia documented as of this encounter Visit Diagnoses Not on filedocumented in this encounter Additional Health Concerns Infection Onset Date Last Indicated Resolved Time Rule Out COVID-19 07/30/2020 07/30/2020 07/30/2020 7:11 PM ECONOMICS ANALYST Rule Out COVID-19 08/30/2020 08/30/2020 08/30/2020 5:05 PM ECONOMICS ANALYST Rule Out COVID-19 09/24/2020 09/24/2020 09/24/2020 9:24 AM CDT Rule Out COVID-19 11/05/2020 11/05/2020 11/06/2020 1:09 PM CDT Rule Out COVID-19 05/11/2021 05/11/2021 05/13/2021 10:18 AM CDT Rule Out COVID-19 07/13/2021 07/13/2021 07/14/2021 3:04 PM ECONOMICS ANALYST Rule Out COVID-19 07/18/2021 07/18/2021 07/20/2021 1:56 PM ECONOMICS ANALYST COVID-19 07/18/2021 07/18/2021 08/08/2021 11:3 9 PM ECONOMICS ANALYST Rule Out COVID-19 12/18/2021 12/18/2021 12/19/2021 11:34 AM CDT Rule Out COVID-19 02/24/2022 02/24/2022 02/25/2022 1:08 PM CDT Rule Out COVID-19 04/26/2022 04/26/2022 04/26/2022 6:47 AM CDT Rule Out COVID-19 05/17/2022 05/17/2022 05/17/2022 10:20 PM ECONOMICS ANALYST Rule Out COVID-19 06/09/2022 06/09/2022 06/09/2022 9:35 AM ECONOMICS ANALYST COVID-19 06/09/2022 06/09/2022 06/30/2022 11:4 1 PM ECONOMICS ANALYST Rule Out COVID-19 11/10/2022 11/10/2022 11/11/2022 12:17 PM CDT Rule Out COVID-19 03/07/2023 03/07/2023 03/07/2023 1:20 PM CDT Rule Out COVID-19 12/26/2023 12/26/2023 12/26/2023 9:50 AM CDT Assessment Noted Time PHQ-9 Depression Total Score: 9 06/25/20 20 7:04 AM ECONOMICS ANALYST documented as of this encounter Care Teams Accelerator Operator Relationship Specialty Start Date End Date Marija Edgar APRN BASEBALL WINDER PCP - General Nurse Practitioner 04/30/20 04/14/23 Esha Grimm PA-C [address] [place] [phone] PCP - General Family Medicine 05/04/23 Lita Oseguera Personal Advocate & Liaison (PAL) 02/28/20 03/27/23 Chanelle Mccann APRN CNM [address] 915087 Assigned OBGYN Provider 05/02/2005/09 Kyara De La Fuente, VJ Specialty Anesthesiology Fellow Neurology 06/04/20 03/05/21 Marija Edgar APRN BASEBALL WINDER Assigned PCP 06/08/20 04/29/23 Mynor Broussard MD [address] [place], [place] 435835 Assigned Surgical Provider 06/01/20 11/28/21 Keisha Dotson MD 909 [place], [place] 749295 Assigned Neuroscience Provider 06/04/20 04/01/23 Mary Mejia Financial Resource Worker 08/07/20 08/21/20 Stacey Briones, [facility] Lead Anesthesiology Fellow Primary Care - CC 08/11/2012/30 Lesley Moody, [facility] Community Health Worker 08/11/2010/01 Mary Mejia Financial Resource Worker 09/02/20 10/06/20 Lita Oseguera Personal Advocate & Liaison (PAL) Family Medicine 09/10/20 09/21/20 Galo Burrell MD Assigned Heart and Vascular Provider 10/05/20 04/02/22 Cristina Wood Financial Resource Worker 10/07/20 10/14/20 Lesley Moody, [facility] Community Health Worker 10/23/2012/30 Meredith Bedoya Financial Resource Worker 10/23/20 11/23/20 Cristina Wood Financial Resource Worker 02/09/21 02/09/21 Diana Desir, [facility] 30[address] [place] [address] Pharmacist Pharmacist 04/17/21 Rain Galaviz PA-C [address] [place] [address] DR [place] [address] Physician Industrial/Organizational Psychologist Dermatology 04/28/21 Summer Lara MD [address] [place] [address] Assigned OBGYN Provider 05/10/2105/23 Summer Lara MD [address] [place] [address] Assigned OBGYN Provider 05/31/21 Summer Lara MD [address] [facility] [place] [address] Assigned OBGYN Provider 05/24/2105/30 Tavia Wyatt MD [address] [facility] [place] [address] Dermatology 07/14/21 Johnny Murillo MD [facility] [facility] [address] [place] [address] Assigned Musculoskeletal Provider 08/30/21 03/17/22 Erica Farrell APRN BASEBALL WINDER [address] [facility] [address] [place] [address] Nurse Practitioner Cardiovascular Disease 09/09/21 Teresita Bean, [facility] [address] [place] [address] Pharmacist Pharmacist 09/24/21 09/29/21 Tavia Wyatt MD Assigned Surgical Provider 11/29/21 05/07/22 Diana Desir, [facility] 3033 [place] [address] Assigned MTM Pharmacist 01/02/22 Rich Barrett MD [address] 606025 Physician Ophthalmology 01/21/22 Neil Kent MD [address] [place], [place] 0[address]375 Dermatology 02/24/22 Roney Story DPM [address] [facility] [address] [place], [place] 569977 Assigned Musculoskeletal Provider 03/20/22 08/13/22 Eirca Farrell APRN BASEBALL WINDER 1700 [place] [address] Assigned Heart and Vascular Provider 04/03/22 04/16/22 Diana Desir, [facility] [address] [place] [address] Assigned MTM Pharmacist 04/07/22 Jelena David OD [address] [place] [address] Assigned Surgical Provider 05/08/22 10/08/22 Galo Burrell MD Assigned Heart and Vascular Provider 04/17/22 06/11/22 Livan Sharif MD [address] [facility] [address] [place] [address] Cardiovascular Disease 05/14/22 Livan Sharif MD [address] [place] [address] [place] [address] Assigned Heart and Vascular Provider 06/12/22 07/23/22 Catherine Cm MD [address] [place] [address] [place] [address] Cardiovascular Disease 07/21/22 Valery Veronica, PAUcheC [address] [place] [address] Physician Industrial/Organizational Psychologist Dermatology 07/21/22 Catherine Cm MD [address] [place] [address] [place] [address] Assigned Heart and Vascular Provider 07/24/22 11/05/22 Johnny Murillo MD [address] [place] [address] Assigned Musculoskeletal Provider 08/14/22 10/08/22 Brea Quinn APRN BASEBALL WINDER [address] [place] [address] Nurse Practitioner Dermatology 09/21/22 Brea Quinn APRN BASEBALL WINDER [address] [place] [address] [place] 881012 Assigned Surgical Provider 10/09/22 [place] [address] [place] [address] Assigned Musculoskeletal Provider 10/09/22 Livan Sharif MD [address] [place] [address] [place] [address] Assigned Heart and Vascular Provider 11/06/22 11/12/22 Catherine Cm MD [address] [facility] [address] [place] [address] Assigned Heart and Vascular Provider 11/13/22 05/27/23 Sydnie Martinez RN Personal Advocate & Liaison (PAL) Family Medicine 03/28/23 07/31/23 Alfonso Renteria MD 5775 [facility] 200 [place] [address] Assigned Neuroscience Provider 04/02/23 Cheng Todd PA-C [address] [place] [address] Assigned PCP 04/30/23 07/15/23 Radha Lomeli APRN BASEBALL WINDER [address] [place] [address] Assigned Heart and Vascular Provider 05/28/23 Jelena David OD [facility] [place] [address] Ophthalmology 06/15/23 Pao Joseph RN Personal Advocate & Liaison (PAL) Nurse 08/01/23 11/07/23 Esha Grmim PA-C [address] [place] [address] Assigned PCP 07/16/23 Valery Veronica PA-C [address] [place] [address] Physician Industrial/Organizational Psychologist Dermatology 09/19/23 Rey Tay MD [address] [place] [address] MD Gastroenterology 09/20/23 Rokcy Zepeda DO [address] [place] [address] 679565 Physician Gastroenterology 09/20/23 Philip Dumont MD [address] [place] [address] Physician Ophthalmology 09/22/23 Meredith Carrera PA-C [address] [place] [address] Assigned Gastroenterology Provider 11/01/23 Neil Kent MD [address] [address] Dermatology 11/02/23 [place] [address] [place], [place] [address] Neurological Surgery 12/26/23 Audrey Waite PA-C [address] [place] [address] 305405 Physician Industrial/Organizational Psychologist Dermatology 02/28/24 documented as of this encounter
--- OUTSIDE RECORDS SUMMARY | 2024-03-12 19:43 | XMS_ITS | Encounter Summary ---
Author Organization [facility] Address [address] [place] [address] Care Team Providers Care Tube Maker Name Role Phone Lita Oseguera Unavailable Unavailable Marija Edgar APRN ROD HANGER Primary Care Provider Chanelle Gutierrez APRN CNM Unavailab le Kyara De La Fuente RN Unavailable [phone] Marija Edgar APRN ROD HANGER Unavailable Unavail able Mynor Broussard MD Unavailable [phone] Keisha Dotson MD Unavailable Stacey Briones CONTINUOUS MINING MACHINE OPERATOR Unavailable Lesley Moody CHW Unavailable Mary Mejia Unavailable Unavailable Lita Oseguera Unavailable Unavailable Galo uBrrell MD Unavailable Unavailable Cristina Wood Unavailable Lesley Moody CHW Unavailable [phone] Meredith Bedoya Unavailable Unavailable Cristina Wood Unavailable Diana Desir [facility] Unavailable [phone] Rain Galaviz PA-C Unavailable Summer Lara MD Unavailable [phone] Summer Lara MD Unavailable [phone] Summer Lara MD Unavailable + [phone] Tavia Wyatt MD Unavailable Unavailable SemJohnny mckeon MD Unavailable +1- Erica Farrell ROUTE DELIVERY DRIVER ROD HANGER Unavailable + BeanTeresita H Unavailable Tavia Wyatt MD Unavailable Unavailable Diana Desir [facility] Unavailable +[phone] Rich Barrett MD Unavailable + Neil Kent MD Unavailable + Roney Story DPM Unavailable [phone] Erica Farrell ROUTE DELIVERY DRIVER ROD HANGER Unavailable + Diana Desir [facility] Unavailable +[phone] Jelena David Radha Unavailable [phone] Galo Burrell MD Unavailable Unavailable Livan Sharif MD Unavailable + Livan Sharif MD Unavailable + Catherine Cm MD Unavailable + Valery Veronica PA-C Unavailable +[phone] Catherine Cm MD Unavailable + Johnny Murillo MD Unavailable +1- Brea Quinn ROUTE DELIVERY DRIVER ROD HANGER Unavailable +1- Brea Quinn ROUTE DELIVERY DRIVER ROD HANGER Unavailable [phone] Jose Francisco Johnson MD Unavailable + Livan Sharif MD Unavailable + Catherine Cm MD Unavailable + Sydnie Martinez RN Unavailable Unavailable Alfonso Renteria MD Unavailable [phone] Esha Grimm PA-C Primary Care Provider Cheng Todd PA-C Unavailable Radha Lomeli APRN ROD HANGER Unavailable [phone] Jelena David OD Unavailable Pao Joseph RN Unavailable Unavailable Esha Grimm PA-C Unavailable [phone] Valery Veronica PA-C Unavailable [phone] Rey Tay MD Unavailable Rocky Zepeda DO Unavailable Philip Dumont MD Unavailable [phone] Meredith Carrera PA-C Unavailable [phone] Neil Kent MD Unavailable Juan Pablo Emmanuel MD Unavailable [phone] Audrey Waite PA-C Unavailable [phone] Encounter Details Date Type Department Care Team (Late st Contact Info) Description 09/02/2020 MyC Medical [facility] Care Coordination [address] [place] [address] Mary Mejia Social History Tobacco Use [...] do you attend chur or samaritan services? More than 4 times [...] Answer Date Recorded PHQ-2 Score 0 08/12/2020 [facility] of Occupat [...] COVID-19? No / Unsure 09/05/2020 2:50 PM METEOROLOGY TEACHER documented as of this encounter Plan of Treatment Upcoming Encounters Date Type Department Care Team (Late st Contact Info) Description 03/26/2024 11:20 AM CDT Office Visit [facility] Spine and Neurosurgery [address] [place] [address] Ebony Cid, ROUTE DELIVERY DRIVER [facility] [address] [place] [address] 03/27/2024 11:00 AM CDT [facility] [address] [place] [address] Jelena Davide, [place] [address] [facility] [place] [address] 04/19/2024 2:45 PM CDT Office [facility] 830 [place] [phone] Audrey Waite PA-C 420 [facility] [address]385, [facility] 603 [place], [place] [address] 05/08/2024 1:30 PM CDT Office [facility] [address] [place] [phone] Lauren Claudio PA-C [address] [place], [place] [phone] Esha Grimm PA-C [address] [place] [phone] 06/21/2024 2:00 PM METEOROLOGY TEACHER [facility] [address] [place] [address], [address] [place] [phone] [place] [address] [place] [address] Johnny Penn MD 5770 [place], [place] [phone] Scheduled Procedures Name Priority Associated Diagnoses Date/Ti [...] Out COVID-19 07/13/2021 07/13/2021 07/14/2021 3:04 PM METEOROLOGY TEACHER Rule Out COVID-19 07/18/2021 07/18/2021 07/20/2021 1:56 PM METEOROLOGY TEACHER COVID-19 07/18/2021 07/18/2021 08/08/2021 11:3 9 PM METEOROLOGY TEACHER Rule Out COVID-19 12/18/2021 12/18/2021 12/19/2021 11:34 AM CDT Rule Out COVID-19 02/24/2022 02/24/2022 02/25/2022 1:08 PM CDT Rule Out COVID-19 04/26/2022 04/26/2022 04/26/2022 6:47 AM CDT Rule Out COVID-19 05/17/2022 05/17/2022 05/17/2022 10:20 PM METEOROLOGY TEACHER Rule Out COVID-19 06/09/2022 06/09/2022 06/09/2022 9:35 AM METEOROLOGY TEACHER COVID-19 06/09/2022 06/09/2022 06/30/2022 11:4 1 PM METEOROLOGY TEACHER Rule Out COVID-19 11/10/2022 11/10/2022 11/11/2022 12:17 PM CDT Rule Out COVID-19 03/07/2023 03/07/2023 03/07/2023 1:20 PM CDT Rule Out COVID-19 12/26/2023 12/26/2023 12/26/2023 9:50 AM CDT Assessment Noted Time PHQ-9 Depression Total Score: 9 06/25/20 20 7:04 AM METEOROLOGY TEACHER documented as of this encounter Care Teams Tube Maker Relationship Specialty Start Date End Date Marija Edgar APRN ROD HANGER PCP - General Nurse Practitioner 04/30/20 04/14/23 Esha Grimm PA-C [address] [place] [phone] PCP - General Family Medicine 05/04/23 Lita Oseguera Personal Advocate & Liaison (PAL) 02/28/20 03/27/23 Chanelle Mccann APRN CNM 21845 [address] 200 [place] [address] Assigned OBGYN Provider 05/02/2005/09 Kyara De La Fuente, RN Specialty Topper Press Operator Automatic Neurology 06/04/20 03/05/21 Marija Edgar APRN ROD HANGER Assigned PCP 06/08/20 04/29/23 Mynor Broussard MD 6363 [facility] 500 [place], [place] 395[address] Assigned Surgical Provider 06/01/20 11/28/21 Keisha Dotson MD 909 [place], [place] 256195 Assigned Neuroscience Provider 06/04/20 04/01/23 Stacey Briones, CONTINUOUS MINING MACHINE OPERATOR Lead Topper Press Operator Automatic Primary Care - CC 08/11/2012/30 Lesley Moody, W Community Health Worker 08/11/2010/01 Mary Mejia Financial Resource Worker 09/02/20 10/06/20 Lita Oseguera Personal Advocate & Liaison (PAL) Family Medicine 09/10/20 09/21/20 Galo Burrell MD Assigned Heart and Vascular Provider 10/05/20 04/02/22 Cristina Wood Financial Resource Worker 10/07/20 10/14/20 Lesley Moody, [facility] Community Health Worker 10/23/2012/30 Meredith Bedoya Financial Resource Worker 10/23/20 11/23/20 Cristina Wood Financial Resource Worker 02/09/21 02/09/21 Diana Desir, [facility] 3033 [place] [address] Pharmacist Pharmacist 04/17/21 Rain Galaviz PA-C [address] [place] [address] [place] [address] Physician Telegraph Printer Mechanic Dermatology 04/28/21 Summer Lara MD [address] [place] [address] [phone] Assigned OBGYN Provider 05/10/2105/23 Summer Lara MD [address] [place] [address] 853994 Assigned OBGYN Provider 05/31/21 Summer Lara MD [address] [place] [address] Assigned OBGYN Provider 05/24/2105/30 Tavia Wyatt MD [address] [place] [address] [place] [address] Dermatology 07/14/21 Johnny Murillo MD [address] [place] [address] Assigned Musculoskeletal Provider 08/30/21 03/17/22 Erica Farrell APRN ROD HANGER [address] [facility] [address] [place] [address] Nurse Practitioner Cardiovascular Disease 09/09/21 Teresita Bean, [facility] [address] [place], [place] [phone] Pharmacist Pharmacist 09/24/21 09/29/21 Tavia Wyatt MD Assigned Surgical Provider 11/29/21 05/07/22 [facility] 3033 [place] [address] Assigned MTM Pharmacist 01/02/22 Rich Barrett MD 516 [facility], [facility] [address] [place], [place] [address] Physician Ophthalmology 01/21/22 Neil Kent MD [address] [place] [address] Dermatology 02/24/22 Roney Story DPM 280[address] [facility] 300 [place] [address] Assigned Musculoskeletal Provider 03/20/22 08/13/22 Erica Farrell APRN ROD HANGER 1700 [place] [address] Assigned Heart and Vascular Provider 04/03/22 04/16/22 Diana Desir, [facility] [address] [facility] [place] [address] Assigned MTM Pharmacist 04/07/22 Jelena David OD [address] [facility] [place] [address] Assigned Surgical Provider 05/08/22 10/08/22 Galo Burrell MD Assigned Heart and Vascular Provider 04/17/22 06/11/22 Livan Sharif MD [address] [place] [address] [place] [address] Cardiovascular Disease 05/14/22 Livan Sharif MD [address] [place] [address] [place] [address] Assigned Heart and Vascular Provider 06/12/22 07/23/22 Catherine Cm MD [address] [address] [place] [address] Cardiovascular Disease 07/21/22 Valery Veronica PAUcheC 9 [place] [address] Physician Telegraph Printer Mechanic Dermatology 07/21/22 Catherine Cm MD [address] [address] [place] [address] Assigned Heart and Vascular Provider 07/24/22 11/05/22 Johnny Murillo MD [address] [place] [address] Assigned Musculoskeletal Provider 08/14/22 10/08/22 Brea Quinn APRN ROD HANGER 500 [place] [address] Nurse Practitioner Dermatology 09/21/22 Brea Quinn APRN ROD HANGER [address] [place] [address] Assigned Surgical Provider 10/09/22 [place] [address] [facility] 300 [place] [address] Assigned Musculoskeletal Provider 10/09/22 Livan Sharif MD [address] [facility] [address] [place] [address] Assigned Heart and Vascular Provider 11/06/22 11/12/22 Catherine Cm MD 6[address] [facility] [address] [place] [address] Assigned Heart and Vascular Provider 11/13/22 05/27/23 Sydnie Martinez RN Personal Advocate & Liaison (PAL) Family Medicine 03/28/23 07/31/23 Alfonso Renteria MD 5775 [facility] 200 [place], [place] 904466 Assigned Neuroscience Provider 04/02/23 Cheng Todd PA-C [address] [place] [address] [phone] Assigned PCP 04/30/23 07/15/23 Radha Lomeli APRN ROD HANGER [address] [facility] [address] [place] [address] Assigned Heart and Vascular Provider 05/28/23 Jelena David OD [address] [facility] [place] [address] Ophthalmology 06/15/23 Pao Joseph, VJ Personal Advocate & Liaison (PAL) Nurse 08/01/23 11/07/23 Esha Grimm PA-C [address] [place] [address]83 Assigned PCP 07/16/23 Valery Veronica PA-C [address] [place] [address] Physician Telegraph Printer Mechanic Dermatology 09/19/23 Rey Tay MD [address] [place] [address] Gastroenterology 09/20/23 Rocky Zepeda DO [address] [place] [address] [phone] Physician Gastroenterology 09/20/23 Philip Dumont MD [address] [place] [address] 287795 Physician Ophthalmology 09/22/23 Meredith Carrera PA-C 909 [place], [place] 821585 Assigned Gastroenterology Provider 11/01/23 Neil Kent MD [address] 523[address] Dermatology 11/02/23 [place] [address] [address] Neurological Surgery 12/26/23 Audrey Waite PA-C 500 [place], [place] 29[address]35 Physician Telegraph Printer Mechanic Dermatology 02/28/24 documented as of this encounter
--- OUTSIDE RECORDS SUMMARY | 2024-03-12 19:43 | XMS_ITS | Encounter Summary ---
Author Organization [facility] Address [address] [place] [address] Care Team Providers Care Baking Assistant Name Role Phone Lita Oseguera Unavailable Unavailable Marija Edgar APRN OPTICAL ENGINEER Primary Care Provider Chanelle Gutierrez APRN CNM Unavailab le Kyara De La Fuente RN Unavailable [phone] Marija Edgar APRN OPTICAL ENGINEER Unavailable Unavail able Mynor Broussard MD Unavailable [phone] Keisha Dotson MD Unavailable Mary Mejia Unavailable Unavailable Stacey Briones LUNCHROOM OPERATOR Unavailable [phone] Lesley Moody CHW Unavailable [phone] Mary Mejia Unavailable Unavailable Lita Oseguera Unavailable Unavailable Galo Burrell MD Unavailable Unavailable Cristina Wood Unavailable Lesley Moody CHW Unavailable Meredith Bedoya Unavailable Unavailable Cristina Wood Unavailable Diana Desir [facility] Unavailable [phone] Rain Galaviz PA-C Unavailable Summer Lara MD Unavailable [phone] Summer Lara MD Unavailable [phone] Summer Lara MD Unavailable + [phone] Tavia Wyatt MD Unavailable Unavailable SemJohnny mckeon MD Unavailable +1- Erica Farrell CONCRETE LABORER OPTICAL ENGINEER Unavailable + BeanTeresita RPH Unavailable Tavia Wyatt MD Unavailable Unavailable Diana Desir H Unavailable [phone] Rich Barrett MD Unavailable [phone] Neil Kent MD Unavailable Roney Story DPM Unavailable [phone] Erica Farrell CONCRETE LABORER OPTICAL ENGINEER Unavailable + Diana Desir RPH Unavailable [phone] Jelena David OD Unavailable [phone] Galo Burrell MD Unavailable Unavailable Livan Sharif MD Unavailable + Livan Sharif MD Unavailable + Catherine Cm MD Unavailable + Valery Veronica PA-C Unavailable [phone] Catherine Cm MD Unavailable + Johnny Murillo MD Unavailable +1- Brea Quinn CONCRETE LABORER OPTICAL ENGINEER Unavailable [phone] Brea Quinn CONCRETE LABORER OPTICAL ENGINEER Unavailable [phone] Jose Francisco Johnson MD Unavailable Livan Sharif MD Unavailable + Catherine Cm MD Unavailable + Sydnie Martinez RN Unavailable Unavailable Alfonso Renteria MD Unavailable [phone] Esha Grimm PA-C Primary Care Provider Cheng Todd PA-C Unavailable Radha Lomeli APRN OPTICAL ENGINEER Unavailable Jelena David OD Unavailable Pao Joesph RN Unavailable Unavailable Esha Grimm PA-C Unavailable [phone] Valery Veronica PA-C Unavailable [phone] Rey Tay MD Unavailable Rocky Zepeda DO Unavailable Philip Dumont MD Unavailable Meredith Carrera PA-C Unavailable Neil Kent MD Unavailable Juan Pablo Emmanuel MD Unavailable Audrey Waite PA-C Unavailable Encounter Details Date Type Department Care Team (Late st Contact Info) Description 08/01/2020 [facility] Medical Advice [address] [address] Marija Edgar APRN CNP Social [...] COVID-19? No / Unsure 07/30/2020 4:53 PM ALUMNI RELATIONS COORDINATOR documented as of this encounter Miscellaneous Notes * Telephone Encounter - Estephania Black RN - 08/01/2020 9:11 AM ALUMNI RELATIONS COORDINATOR Schedule patient for Zio Patch. Detailed message left on phone and through [employer]. Estephania Black RN Flex NI RELATIONS COORDINATOR * Telephone Encounter - Marija Edgar APRN OPTICAL ENGINEER - 08/01/2020 8:46 AM ALUMNI RELATIONS COORDINATOR Please help patient schedule her zio patch. This order has been in place since 05/2020 and a new order was placed this week. NI RELATIONS COORDINATOR documented in this encounter Plan of Treatment Upcoming Encounters Date Type Department Care Team (Late st Contact Info) Description 03/26/2024 11:20 AM CDT Office Visit [facility] Spine and Neurosurgery [address] [facility] [address] [place] [address] Ebony Cid APRN OPTICAL ENGINEER [address] [place], [place] [address] 03/27/2024 11:00 AM CDT Office Visit [facility] [address] [place] [phone] [place], [place] [address] [facility] [place] [address] 04/19/2024 2:45 PM CDT Office Visit [facility] [address] [place] [address] Audrey Waite, ROVERTO [address] [place] [address] B385, [facility] [address] [place], [place] [address] 05/08/2024 1:30 PM CDT Office Visit [facility] [address] [place] [address] Lauren Claudio PA-C [address] [place] [address] Esha Grimm PA-C [address] [place] [address] 06/21/2024 2:00 PM ALUMNI RELATIONS COORDINATOR Office Visit [facility] Neurology [facility] [address] [place] [address], [address] [place] [phone] [place] [address] [place] [address] Johnny Penn MD [address] [place] [address] Scheduled Procedures Name Priority Associated Diagnoses Date/Ti ar ESOPHAGOGASTRODUODENOSCOPY Eosinophilic esophagitis Esophageal dysphagia documented as of this encounter Visit Diagnoses Not on filedocumented in this encounter Additional Health Concerns Infection Onset Date Last Indicated Resolved Time Rule Out COVID-19 08/30/2020 08/30/2020 08/30/2020 5:05 PM ALUMNI RELATIONS COORDINATOR Rule Out COVID-19 09/24/2020 09/24/2020 09/24/2020 9:24 AM CDT Rule Out COVID-19 11/05/2020 11/05/2020 11/06/2020 1:09 PM CDT Rule Out COVID-19 05/11/2021 05/11/2021 05/13/2021 10:18 AM CDT Rule Out COVID-19 07/13/2021 07/13/2021 07/14/2021 3:04 PM ALUMNI RELATIONS COORDINATOR Rule Out COVID-19 07/18/2021 07/18/2021 07/20/2021 1:56 PM ALUMNI RELATIONS COORDINATOR COVID-19 07/18/2021 07/18/2021 08/08/2021 11:3 9 PM ALUMNI RELATIONS COORDINATOR Rule Out COVID-19 12/18/2021 12/18/2021 12/19/2021 11:34 AM CDT Rule Out COVID-19 02/24/2022 02/24/2022 02/25/2022 1:08 PM CDT Rule Out COVID-19 04/26/2022 04/26/2022 04/26/2022 6:47 AM CDT Rule Out COVID-19 05/17/2022 05/17/2022 05/17/2022 10:20 PM ALUMNI RELATIONS COORDINATOR Rule Out COVID-19 06/09/2022 06/09/2022 06/09/2022 9:35 AM ALUMNI RELATIONS COORDINATOR COVID-19 06/09/2022 06/09/2022 06/30/2022 11:4 1 PM ALUMNI RELATIONS COORDINATOR Rule Out COVID-19 11/10/2022 11/10/2022 11/11/2022 12:17 PM CDT Rule Out COVID-19 03/07/2023 03/07/2023 03/07/2023 1:20 PM CDT Rule Out COVID-19 12/26/2023 12/26/2023 12/26/2023 9:50 AM CDT Assessment Noted Time PHQ-9 Depression Total Score: 9 06/25/20 20 7:04 AM ALUMNI RELATIONS COORDINATOR documented as of this encounter Care Teams Baking Assistant Relationship Specialty Start Date End Date Marija Edgar APRN OPTICAL ENGINEER PCP - General Nurse Practitioner 04/30/20 04/14/23 Esha Grimm PA-C [address] [place] [address] PCP - General Family Medicine 05/04/23 Lita Oseguera Personal Advocate & Liaison (PAL) 02/28/20 03/27/23 Chanelle Mccann APRN CNM [address] [place] [address] Assigned OBGYN Provider 05/02/2005/09 Kyara De La Fuente, RN Specialty Vp Marketing Services And Skin Neurology 06/04/20 03/05/21 Marija Edgar APRN OPTICAL ENGINEER Assigned PCP 06/08/20 04/29/23 Mynor Broussard MD [address] [place], [place] [address] Assigned Surgical Provider 06/01/20 11/28/21 Keisha Dotson MD [address] [place], [place] [address] Assigned Neuroscience Provider 06/04/20 04/01/23 Mary Mejia Financial Resource Worker 08/07/20 08/21/20 Stacey Briones, [facility] Lead Vp Marketing Services And Skin Primary Care - CC 08/11/2012/30 Lesley Moody, W Community Health Worker 08/11/2010/01 Mary Mejia Financial Resource Worker 09/02/20 10/06/20 Lita Oseguera Personal Advocate & Liaison (PAL) Family Medicine 09/10/20 09/21/20 Galo Burrell MD Assigned Heart and Vascular Provider 10/05/20 04/02/22 Cristina Wood Financial Resource Worker 10/07/20 10/14/20 Lesley Moody, W Community Health Worker 10/23/2012/30 Meredith Bedoya Financial Resource Worker 10/23/20 11/23/20 AilynCristina younger Financial Resource Worker 02/09/21 02/09/21 Diana Desir, [facility] [address] [place] [address] Pharmacist Pharmacist 04/17/21 Rain Galaviz PA-C [address] [place] [address] [place] [address] Physician Acquisitions Librarian Dermatology 04/28/21 Summer Lara MD [address] [place] [address] Assigned OBGYN Provider 05/10/2105/23 Summer Lara MD [address] [place] [address] Assigned OBGYN Provider 05/31/21 2 Summer Lara MD [address] [place] [address] Assigned OBGYN Provider 05/24/2105/30 Tavia Wyatt MD [address] [place] [address] Dermatology 07/14/21 Johnny Murillo MD [address] [place] [address] Assigned Musculoskeletal Provider 08/30/21 03/17/22 Erica Farrell APRN OPTICAL ENGINEER [address] [facility] [address] [place] [address] Nurse Practitioner Cardiovascular Disease 09/09/21 Teresita Bean [facility] [address] [place] [phone] Pharmacist Pharmacist 09/24/21 09/29/21 Tavia Wyatt MD Assigned Surgical Provider 11/29/21 05/07/22 Diana Desir, [facility] [address] [place] [address] Assigned MTM Pharmacist 01/02/22 Rich Barrett MD [address] [phone] Physician Ophthalmology 01/21/22 Neil Kent MD [address] [place], [place] [phone] Dermatology 02/24/22 Roney Story DPM [address] [facility] [address] [place] [address] Assigned Musculoskeletal Provider 03/20/22 08/13/22 Erica Farrell APRN OPTICAL ENGINEER [address] [place] [address] Assigned Heart and Vascular Provider 04/03/22 04/16/22 Diana Desir, [facility] [address] [place] [address] Assigned MTM Pharmacist 04/07/22 Jelena David OD [address] [place] [address] Assigned Surgical Provider 05/08/22 10/08/22 Galo Burrell MD Assigned Heart and Vascular Provider 04/17/22 06/11/22 Livan Sharif MD [address], [facility] [address] [place] [address] Cardiovascular Disease 05/14/22 Livan Sharif MD [address], [facility] [place] [address] Assigned Heart and Vascular Provider 06/12/22 07/23/22 Catherine Cm MD [address] [facility] [place] [address] Cardiovascular Disease 07/21/22 Valery Veronica, PA-C [address] [place] [address] Physician Acquisitions Librarian Dermatology 07/21/22 Catherine Cm MD [address] [facility] [place] [address] Assigned Heart and Vascular Provider 07/24/22 11/05/22 Johnny Murillo MD [facility] [address] [address] Assigned Musculoskeletal Provider 08/14/22 10/08/22 Brea Quinn APRN OPTICAL ENGINEER [address] [place] [address] Nurse Practitioner Dermatology 09/21/22 Brea Quinn APRN OPTICAL ENGINEER [address] [facility] [place] [address] Assigned Surgical Provider 10/09/22 [place] [address] [facility] [address] [place] [address] Assigned Musculoskeletal Provider 10/09/22 Livan Sharif MD [address], [facility] [address] [place] [address] Assigned Heart and Vascular Provider 11/06/22 11/12/22 Catherine Cm MD [address] [facility] [place] [address] Assigned Heart and Vascular Provider 11/13/22 05/27/23 Sydnie Martinez RN Personal Advocate & Liaison (PAL) Family Medicine 03/28/23 07/31/23 Alfonso Renteria MD [address] [facility] [address] [place] [address] Assigned Neuroscience Provider 04/02/23 Cheng Todd PA-C [address] [place] [phone] Assigned PCP 04/30/23 07/15/23 Radha Lomeli APRN OPTICAL ENGINEER [address] [place] [address] Assigned Heart and Vascular Provider 05/28/23 Jelena David OD [address] [place] [address] MD Ophthalmology 06/15/23 Pao Joseph, RN Personal Advocate & Liaison (PAL) Nurse 08/01/23 11/07/23 Esha Grimm PA-C [address] [place] [address] Assigned PCP 07/16/23 Valery Veronica PA-C [address] [place] [address] Physician Acquisitions Librarian Dermatology 09/19/23 Rey Tay MD [address] [place] [address] MD Gastroenterology 09/20/23 Rocky Zepeda DO [address] [place] [address]666[address] Physician Gastroenterology 09/20/23 Philip Dumont MD [address] [place] [address]95[address] Physician Ophthalmology 09/22/23 Meredith Carrera PA-C [address] [place] [address] Assigned Gastroenterology Provider 11/01/23 Neil Kent MD [address] 1364[address] Dermatology 11/02/23 [place] [address] [address] Neurological Surgery 12/26/23 Audrey Waite, PAUcheC [address] [place], [place] [address] Physician Acquisitions Librarian Dermatology 02/28/24 documented as of this encounter
--- OUTSIDE RECORDS SUMMARY | 2024-03-12 19:43 | XMS_ITS | Encounter Summary ---
Author Organization [facility] Address [address] [place] [address] Care Team Providers Care Merchandiser Name Role Phone Lita Oseguera Unavailable Unavailable Marija Edgar APRN GAMING TABLE OPERATOR Primary Care Provider Chanelle Gutierrez APRN CNM Unavailab le Kyara De La Fuente RN Unavailable [phone] Marija Edgar APRN GAMING TABLE OPERATOR Unavailable Unavail able Mynor Broussard MD Unavailable [phone] Keisha Dotson MD Unavailable [phone] Stacey Briones MDS NURSE Unavailable Lesley Moody CHW Unavailable Mary Mejia Unavailable Unavailable Lita Oseguera Unavailable Unavailable Galo Burrell MD Unavailable Unavailable Cristina Wood Unavailable Lesley Moody CHW Unavailable Meredith Bedoya Unavailable Unavailable Cristina Wood Unavailable Diana Desir [facility] Unavailable Rain Galaviz PA-C Unavailable Summer Lara MD Unavailable [phone] Summer Lara MD Unavailable [phone] Summer Lara MD Unavailable + [phone] Tavia Wyatt MD Unavailable Unavailable SemJohnny mckeon MD Unavailable +1- Erica Farrell HEMODIALYSIS PATIENT CARE SPECIALIST GAMING TABLE OPERATOR Unavailable + BeanTeresita H Unavailable Tavia Wyatt MD Unavailable Unavailable Diana Desir [facility] Unavailable [phone] Rich Barrett MD Unavailable + Neil Kent MD Unavailable + Roney Story DPM Unavailable [phone] Erica Farrell HEMODIALYSIS PATIENT CARE SPECIALIST GAMING TABLE OPERATOR Unavailable + Diana Desir [facility] Unavailable +[phone] Jelena David Radha Unavailable [phone] Galo Burrell MD Unavailable Unavailable Livan Sharif MD Unavailable + Livan Sharif MD Unavailable + Catherine Cm MD Unavailable + Valery Veronica PA-C Unavailable +[phone] Catherine Cm MD Unavailable + Johnny Murillo MD Unavailable +1- Brea Quinn HEMODIALYSIS PATIENT CARE SPECIALIST GAMING TABLE OPERATOR Unavailable +1- Brea Quinn HEMODIALYSIS PATIENT CARE SPECIALIST GAMING TABLE OPERATOR Unavailable [phone] Jose Francisco Johnson MD Unavailable + Livan Sharif MD Unavailable + Catherine Cm MD Unavailable + Sydnie Martinez RN Unavailable Unavailable Alfonso Renteria MD Unavailable [phone] Esha Grimm PA-C Primary Care Provider Cheng Todd PA-C Unavailable Radha Lomeli APRN GAMING TABLE OPERATOR Unavailable [phone] Jelena David OD Unavailable Pao Joseph RN Unavailable Unavailable Esha Grimm PA-C Unavailable [phone] Valery Veronica PA-C Unavailable Rey Tay MD Unavailable Rocky Zepeda DO Unavailable Philip Dumont MD Unavailable [phone] Meredith Carrera PA-C Unavailable [phone] Neil Kent MD Unavailable Juan Pablo Emmanuel MD Unavailable [phone] Audrey Waite PA-C Unavailable [phone] Encounter Details Date Type Department Care Team (Late st Contact Info) Description 08/24/2020 My[facility] Medical Advice [address] [address] Marija Edgar, ARLENE GAMING TABLE OPERATOR Social History Tobacco Use Types Packs/Day [...] Answer Date Recorded PHQ-2 Score 0 08/12/2020 [facility] - Occupational [...] COVID-19? No / Unsure 08/20/2020 12:47 PM FOURDRINIER TENDER documented as of this encounter Miscellaneous Notes * Telephone Encounter - Marija Edgra APRN CNP - 08/25/2020 11:47 AM FOURDRINIER TENDER Replied via MyChart Marija Edgar APRN CNP on 08/25/2020 at 11:51 AM DRINIER TENDER documented in this encounter Plan of Treatment Upcoming Encounters Date Type Department Care Team (Late st Contact Info) Description 03/26/2024 11:20 AM CDT Office Visit [facility] Spine [facility] Neurosurgery [address] [facility] [address] [place] [phone] Ebony Cid, ARLENE GAMING TABLE OPERATOR [address] [facility] [address] [place], [place] [address] 03/27/2024 11:00 AM CDT Office Visit [facility] [address] [facility] [address] [place] [phone] Jelena David, [place] [address] [place] [phone] 04/19/2024 2:45 PM CDT Office Visit [facility] [address] [place] [phone] Audrey Waite PA-C [address] [facility] [address], [facility] [address] [place], [place] [phone] 05/08/2024 1:30 PM CDT Office Visit [facility] [address] [place] [phone] Lauren Claudio PA-C [address] [place], [place] [phone] Esha Grimm PA-C [address] [place] [address] 06/21/2024 2:00 PM FOURDRINIER TENDER Office Visit [facility] [place] [address] [place] [address], [address] [place] [address] [place] [address] [address] [place] [address] Johnny Penn MD [address] [id number] Scheduled Procedures Name Priority Associated Diagnoses Date/Ti me ESOPHAGOGASTRODUODENOSCOPY Eosinophilic esophagitis Esophageal dysphagia documented as of this encounter Visit Diagnoses Not on filedocumented in this encounter Additional Health Concerns Infection Onset Date Last Indicated Resolved Time Rule Out COVID-19 08/30/2020 08/30/2020 08/30/2020 5:05 PM FOURDRINIER TENDER Rule Out COVID-19 09/24/2020 09/24/2020 09/24/2020 9:24 AM CDT Rule Out COVID-19 11/05/2020 11/05/2020 11/06/2020 1:09 PM CDT Rule Out COVID-19 05/11/2021 05/11/2021 05/13/2021 10:18 AM CDT Rule Out COVID-19 07/13/2021 07/13/2021 07/14/2021 3:04 PM FOURDRINIER TENDER Rule Out COVID-19 07/18/2021 07/18/2021 07/20/2021 1:56 PM FOURDRINIER TENDER COVID-19 07/18/2021 07/18/2021 08/08/2021 11:3 9 PM FOURDRINIER TENDER Rule Out COVID-19 12/18/2021 12/18/2021 12/19/2021 11:34 AM CDT Rule Out COVID-19 02/24/2022 02/24/2022 02/25/2022 1:08 PM CDT Rule Out COVID-19 04/26/2022 04/26/2022 04/26/2022 6:47 AM CDT Rule Out COVID-19 05/17/2022 05/17/2022 05/17/2022 10:20 PM FOURDRINIER TENDER Rule Out COVID-19 06/09/2022 06/09/2022 06/09/2022 9:35 AM FOURDRINIER TENDER COVID-19 06/09/2022 06/09/2022 06/30/2022 11:4 1 PM FOURDRINIER TENDER Rule Out COVID-19 11/10/2022 11/10/2022 11/11/2022 12:17 PM CDT Rule Out COVID-19 03/07/2023 03/07/2023 03/07/2023 1:20 PM CDT Rule Out COVID-19 12/26/2023 12/26/2023 12/26/2023 9:50 AM CDT Assessment Noted Time PHQ-9 Depression Total Score: 9 06/25/20 20 7:04 AM FOURDRINIER TENDER documented as of this encounter Care Teams Merchandiser Relationship Specialty Start Date End Date Marija Edgar APRN GAMING TABLE OPERATOR PCP - General Nurse Practitioner 04/30/20 04/14/23 Esha Grimm PA-C [address] [place] [phone] PCP - General Family Medicine 05/04/23 Lita Oseguera Personal Advocate & Liaison (PAL) 02/28/20 03/27/23 Chanelle Mccann APRN CNAdam [address] [place] [address] [id number] Assigned OBGYN Provider 05/02/2005/09 Kyara De La Fuente, VJ Specialty Corporate Specialist Neurology 06/04/20 03/05/21 Marija Edgar APRN GAMING TABLE OPERATOR Assigned PCP 06/08/20 04/29/23 Mynor Broussard MD [address] [id number] Assigned Surgical Provider 06/01/20 11/28/21 Keisha Dotson MD [address] [place] [address] 191565 Assigned Neuroscience Provider 06/04/20 04/01/23 Stacey Briones, [facility] Lead Corporate Specialist Primary Care - CC 08/11/2012/30 Lesley Moody, [facility] Community Health Worker 08/11/2010/01 Mary Mejia Financial Resource Worker 09/02/20 10/06/20 Lita Oseguera Personal Advocate & Liaison (PAL) Family Medicine 09/10/20 09/21/20 Galo Burrell MD Assigned Heart and Vascular Provider 10/05/20 04/02/22 Cristina Wood Financial Resource Worker 10/07/20 10/14/20 Lesley Moody, [facility] Community Health Worker 10/23/2012/30 Meredith Bedoya Financial Resource Worker 10/23/20 11/23/20 Cristina Wood Financial Resource Worker 02/09/21 02/09/21 Diana Desir, [facility] [address] [place] [address] Pharmacist Pharmacist 04/17/21 Rain Galaviz PA-C [address] [place] [address] [address] [place], [place] [phone] Physician Music Sound Light Technician Dermatology 04/28/21 Summer Lara MD [address] [place] [address] 488684 Assigned OBGYN Provider 05/10/2105/23 Summer Lara MD [address] [place] [address] Assigned OBGYN Provider 05/31/21 2 Summer Lara MD [address] [place] [address] Assigned OBGYN Provider 05/24/2105/30 Tavia Wyatt MD [address] [facility] [place] [address] Dermatology 07/14/21 Johnny Murillo MD [address] [facility] [address] [place] [address] Assigned Musculoskeletal Provider 08/30/21 03/17/22 Erica Farrell APRN GAMING TABLE OPERATOR [address] [facility] [address] [place] [address] Nurse Practitioner Cardiovascular Disease 09/09/21 Teresita Bean, [facility] [address] [place] [address] Pharmacist Pharmacist 09/24/21 09/29/21 Tavia Wyatt MD Assigned Surgical Provider 11/29/21 05/07/22 [facility] [address] [place] [address] Assigned MTM Pharmacist 01/02/22 Rich Barrett MD [address] [facility] [address] [place] [address] Physician Ophthalmology 01/21/22 Neil Ketn MD 500 [place] [address] Dermatology 02/24/22 Roney Story DPM [address] [place] [employer] [facility] [address] [place] [address] Assigned Musculoskeletal Provider 03/20/22 08/13/22 Erica Farrell APRN GAMING TABLE OPERATOR [address] [place] [address] Assigned Heart and Vascular Provider 04/03/22 04/16/22 Diana Desir, [facility] [address] [place], [place] [phone] Assigned MTM Pharmacist 04/07/22 Jelena David OD [address] [place] [address] Assigned Surgical Provider 05/08/22 10/08/22 Galo Burrell MD Assigned Heart and Vascular Provider 04/17/22 06/11/22 Livan Sharif MD [address] [place] [address] Cardiovascular Disease 05/14/22 Livan Sharif MD [address] [place] [id number] Assigned Heart and Vascular Provider 06/12/22 07/23/22 Catherine Cm MD [address] [place] [address] Cardiovascular Disease 07/21/22 Valery Veronica, PAUcheC [address] [place] [address] Physician Music Sound Light Technician Dermatology 07/21/22 Catherine Cm MD [address] [address] Assigned Heart and Vascular Provider 07/24/22 11/05/22 Johnny Murillo MD [address] [place] [address] Assigned Musculoskeletal Provider 08/14/22 10/08/22 Brea Quinn APRN GAMING TABLE OPERATOR [address] [place] [address] Nurse Practitioner Dermatology 09/21/22 Brea Quinn APRN GAMING TABLE OPERATOR [address] [place] [address] Assigned Surgical Provider 10/09/22 [place] [address] [address] Assigned Musculoskeletal Provider 10/09/22 Livan Sharif MD [address] [address] Assigned Heart and Vascular Provider 11/06/22 11/12/22 Catherine Cm MD [address] [place] [address] Assigned Heart and Vascular Provider 11/13/22 05/27/23 Sydnie Martinez RN Personal Advocate & Liaison (PAL) Family Medicine 03/28/23 07/31/23 Alfonso Renteria MD [address] [facility] [address] [place] [address] Assigned Neuroscience Provider 04/02/23 Cheng Todd PA-C [address] [place] [address] [phone] Assigned PCP 04/30/23 07/15/23 Radha Lomeli APRN GAMING TABLE OPERATOR [address] [place] [address] Assigned Heart and Vascular Provider 05/28/23 Jelena David OD [address] [place] [address] Ophthalmology 06/15/23 Pao Joseph RN Personal Advocate & Liaison (PAL) Nurse 08/01/23 11/07/23 Esha Grimm PA-C [address] [place] [phone] Assigned PCP 07/16/23 Valery Veronica PA-C [address] [place] [address] 563965 Physician Music Sound Light Technician Dermatology 09/19/23 Rey Tay MD [address] [place] [address] MD Gastroenterology 09/20/23 Rocky Zepeda DO [address] [place] [address] Physician Gastroenterology 09/20/23 Philip Dumont MD [address] [place] [address] Physician Ophthalmology 09/22/23 Meredith Carrera PA-C [address] [place] [address] Assigned Gastroenterology Provider 11/01/23 Neil Kent MD [address] [place] [address] [phone] Dermatology 11/02/23 [place] [address] [facility] [address] [place], [place] [address] Neurological Surgery 12/26/23 Audrey Waite PA-C 500 [place] [address] Physician Music Sound Light Technician Dermatology 02/28/24 documented as of this encounter
--- OUTSIDE RECORDS SUMMARY | 2024-03-12 19:44 | XMS_ITS | Encounter Summary ---
Author Organization [facility] Address [address] [place] [address] Care Team Providers Care Sumo Wrestler Name Role Phone Lita Oseguera Unavailable Unavailable Rakesh Cid PA-C Unavailable + [phone] Marija Edgar DIRECTOR OF PERSONNEL ETL INFORMATICA DEVELOPER Primary Care Provider Chanelle Gutierrez DIRECTOR OF PERSONNEL CNM Unavailab le Lesley Moody CHW Unavailable [phone] Kyara De La Fuente RN Unavailable [phone] Marija Edgar APRN ETL INFORMATICA DEVELOPER Unavailable Unavail able Mynor Broussard MD Unavailable [phone] Keisha Dotson MD Unavailable [phone] Mary Mejia Unavailable Unavailable Stacey Briones [employer] Unavailable [phone] Lesley Moody CHW Unavailable Mary Mejia Unavailable Unavailable Lita Oseguera Unavailable Unavailable Galo Burrell MD Unavailable Unavailable Cristina Wood Unavailable Lesley Moody CHW Unavailable Meredith Bedoya Unavailable Unavailable Cristina Wood Unavailable Diana Desir RPH Unavailable [phone] AnastaciaKailaRainsuki Paredes PA-C Unavailable [phone] Summer Lara MD Unavailable [phone] Summer Lara MD Unavailable [phone] Summer Lara MD Unavailable [phone] Tavia Wyatt MD Unavailable Unavailable Johnny Murillo MD Unavailable +1- Erica Farrell DIRECTOR OF PERSONNEL ETL INFORMATICA DEVELOPER Unavailable + VikasTeresita [facility] Unavailable Tavia Wyatt MD Unavailable Unavailable Diana Desir [facility] Unavailable [phone] Rich Barrett MD Unavailable [phone] Neil Kent MD Unavailable Roney Story DPM Unavailable [phone] Erica Farrell DIRECTOR OF PERSONNEL ETL INFORMATICA DEVELOPER Unavailable Diana Desir [facility] Unavailable [phone] Jelena David OD Unavailable Galo Burrell MD Unavailable Unavailable Livan Sharif MD Unavailable + Livan Sharif MD Unavailable + Catherine Cm MD Unavailable + Valery Veronica PA-C Unavailable [phone] Catherine Cm MD Unavailable + Johnny Murillo MD Unavailable +[phone]- Brea Quinn DIRECTOR OF PERSONNEL ETL INFORMATICA DEVELOPER Unavailable [phone] Brea Quinn DIRECTOR OF PERSONNEL ETL INFORMATICA DEVELOPER Unavailable [phone] Jose Francisco Johnson MD Unavailable Livan Sharif MD Unavailable Catherine Cm MD Unavailable + Sydnie Martinez RN Unavailable Unavailable Alfonso Renteria MD Unavailable [phone] Esha Grimm PA-C Primary Care Provider Cheng Todd PA-C Unavailable ArmaniRadha APRN ETL INFORMATICA DEVELOPER Unavailable FrankieJelena OD Unavailable Pao Joseph RN Unavailable Unavailable Esha Grimm PA-C Unavailable [phone] Valery Veronica PA-C Unavailable [phone] Rey Tay MD Unavailable Rocky Zepeda DO Unavailable Philip Dumont MD Unavailable Meredith Carrera PA-C Unavailable Neil Kent MD Unavailable Juan Pablo Emmanuel MD Unavailable [phone] Audrey Waite PA-C Unavailable [phone] Encounter Details Date Type Department Care Team (Late st Contact Info) Description 05/16/2020 MyC Medical Advice [facility] [address] [place] [address] Jerome Ferrell, RN Social History Tobacco [...] COVID-19? No / Unsure 05/12/2020 9:03 AM BUTTON TUFTER documented as of this encounter Plan of Treatment Upcoming Encounters Date Type Department Care Team (Late st Contact Info) Description 03/26/2024 11:20 AM CDT Office Visit [facility] Spine and Neurosurgery [address] [facility] [place] [address] Ebony Cid, DIRECTOR OF PERSONNEL ETL INFORMATICA DEVELOPER [address] [place], [place] [address] 03/27/2024 11:00 AM CDT Office Visit [facility] [address] [place] [phone] Jelena David, [place] [address] [facility] [place] [address] 04/19/2024 2:45 PM CDT Office Visit [facility] [address] [place] [phone] Audrey Waite PA-C [address] [facility] [address], [facility] [address] [place], [place] [address] 05/08/2024 1:30 PM CDT Office Visit [facility] [address] [place] [address] Lauren Claudio PA-C [address] [place], [place] [phone] Esha Grimm PA-C [address] [place] [address] 06/21/2024 2:00 PM BUTTON TUFTER Office Visit [facility] Neurology [facility] [address], [address] [place] [address] [place] [address] [place] [address] Johnny Penn MD [address] [place] [address] Scheduled Procedures Name Priority Associated Diagnoses Date/Ti ak ESOPHAGOGASTRODUODENOSCOPY Eosinophilic esophagitis Esophageal dysphagia documented as of this encounter Visit Diagnoses Not on filedocumented in this encounter Additional Health Concerns Infection Onset Date Last Indicated Resolved Time Rule Out COVID-19 07/30/2020 07/30/2020 07/30/2020 7:11 PM BUTTON TUFTER Rule Out COVID-19 08/30/2020 08/30/2020 08/30/2020 5:05 PM BUTTON TUFTER Rule Out COVID-19 09/24/2020 09/24/2020 09/24/2020 9:24 AM CDT Rule Out COVID-19 11/05/2020 11/05/2020 11/06/2020 1:09 PM CDT Rule Out COVID-19 05/11/2021 05/11/2021 05/13/2021 10:18 AM CDT Rule Out COVID-19 07/13/2021 07/13/2021 07/14/2021 3:04 PM BUTTON TUFTER Rule Out COVID-19 07/18/2021 07/18/2021 07/20/2021 1:56 PM BUTTON TUFTER COVID-19 07/18/2021 07/18/2021 08/08/2021 11:3 9 PM BUTTON TUFTER Rule Out COVID-19 12/18/2021 12/18/2021 12/19/2021 11:34 AM CDT Rule Out COVID-19 02/24/2022 02/24/2022 02/25/2022 1:08 PM CDT Rule Out COVID-19 04/26/2022 04/26/2022 04/26/2022 6:47 AM CDT Rule Out COVID-19 05/17/2022 05/17/2022 05/17/2022 10:20 PM BUTTON TUFTER Rule Out COVID-19 06/09/2022 06/09/2022 06/09/2022 9:35 AM BUTTON TUFTER COVID-19 06/09/2022 06/09/2022 06/30/2022 11:4 1 PM BUTTON TUFTER Rule Out COVID-19 11/10/2022 11/10/2022 11/11/2022 12:17 PM CDT Rule Out COVID-19 03/07/2023 03/07/2023 03/07/2023 1:20 PM CDT Rule Out COVID-19 12/26/2023 12/26/2023 12/26/2023 9:50 AM CDT Assessment Noted Time PHQ-9 Depression Total Score: 12 020 2:40 PM CDT documented as of this encounter Care Teams Sumo Wrestler Relationship Specialty Start Date End Date Marija Edgar APRN ETL INFORMATICA DEVELOPER [address] [place] [address] PCP - General Nurse Practitioner 04/30/20 04/14/23 Esha Grimm PA-C [address] [place] [phone] PCP - General Family Medicine 05/04/23 Lita Oseguera Personal Advocate & Liaison (PAL) 02/28/20 03/27/23 Rakesh Cid PA-C [address] [place] [address] Assigned PCP 03/02/20 06/07/20 Chanelle Mccann APRN CNM [address] [address] Assigned OBGYN Provider 05/02/2005/09 Lesley Moody, CHW Community Health Worker 05/30/2005/12 Kyara De La Fuente, RN Specialty Subsorter Neurology 06/04/20 03/05/21 Marija Edgar APRN ETL INFORMATICA DEVELOPER [address] [place] [address] Assigned PCP 06/08/20 04/29/23 Mynor Broussard MD [address] [phone] Assigned Surgical Provider 06/01/20 11/28/21 Keisha Dotson MD [address] [place] [address] Assigned Neuroscience Provider 06/04/20 04/01/23 Mary Mejia Financial Resource Worker 08/07/20 08/21/20 Stacey Briones, [facility] Lead Subsorter Primary Care - CC 08/11/2012/30 Lesley Moody, W Community Health Worker 08/11/2010/01 Mary Mejia Financial Resource Worker 09/02/20 10/06/20 Lita Oseguera Personal Advocate & Liaison (PAL) Family Medicine 09/10/20 09/21/20 Galo Burrell MD Assigned Heart and Vascular Provider 10/05/20 04/02/22 Cristina Wood Financial Resource Worker 10/07/20 10/14/20 Lesley Moody, W Community Health Worker 10/23/2012/30 Meredith Bedoya Financial Resource Worker 10/23/20 11/23/20 Cristina anderson Financial Resource Worker 02/09/21 02/09/21 Diana Desir, [facility] [address] [place] [address] Pharmacist Pharmacist 04/17/21 Rain Galaviz PA-C [address] [place] [address] [place] [address] Physician Clothing Cutter Dermatology 04/28/21 Summer Lara MD [address] [place] [address] Assigned OBGYN Provider 05/10/2105/23 Summer Lara MD [address] [place] [address] Assigned OBGYN Provider 05/31/21 Summer Lara MD [address] [place] [address] Assigned OBGYN Provider 05/24/2105/30 Tavia Wyatt MD [address] [place] [address] Dermatology 07/14/21 Johnny Murillo MD [address] [facility] [address] [place] [address] Assigned Musculoskeletal Provider 08/30/21 03/17/22 Erica Farrell APRN ETL INFORMATICA DEVELOPER [address] [facility] [address] [place] [address] Nurse Practitioner Cardiovascular Disease 09/09/21 Teresita Bean, [facility] [address] [facility] [place] [address] Pharmacist Pharmacist 09/24/21 09/29/21 Tavia Wyatt MD Assigned Surgical Provider 11/29/21 05/07/22 Diana Desir, [facility] [address] [place] [address] Assigned MTM Pharmacist 01/02/22 Rich Barrett MD [address] [address] Physician Ophthalmology 01/21/22 Neil Kent MD [address] [place], [place] [phone] Dermatology 02/24/22 Roney Story DPM [address] [facility] [address] [place], [place] [address] Assigned Musculoskeletal Provider 03/20/22 08/13/22 Erica Farrell APRN ETL INFORMATICA DEVELOPER [address] [place] [address] Assigned Heart and Vascular Provider 04/03/22 04/16/22 Diana Desir, [facility] [address] [place] [address] Assigned MTM Pharmacist 04/07/22 Jelena David OD [address] [facility] [place] [address] Assigned Surgical Provider 05/08/22 10/08/22 Galo Burrell MD Assigned Heart and Vascular Provider 04/17/22 06/11/22 Livan Sharif MD [address] [place] [address] Cardiovascular Disease 05/14/22 Livan Sharif MD [address] [place] [address] Assigned Heart and Vascular Provider 06/12/22 07/23/22 Catherine Cm MD [address] [facility] [address] [place] [address] Cardiovascular Disease 07/21/22 Valery Veronica, PA-C [address] [place], [place] [address] Physician Clothing Cutter Dermatology 07/21/22 Catherine Cm MD [address] [place], [place] [address] Assigned Heart and Vascular Provider 07/24/22 11/05/22 Johnny Murillo MD [address] [address] Assigned Musculoskeletal Provider 08/14/22 10/08/22 Brea Quinn APRN ETL INFORMATICA DEVELOPER [address] [place] [address] Nurse Practitioner Dermatology 09/21/22 Brea Quinn APRN ETL INFORMATICA DEVELOPER [address] [facility] [place], [place] [address] Assigned Surgical Provider 10/09/22 [place] [address] [facility] [address] [place] [address] Assigned Musculoskeletal Provider 10/09/22 Livan Sharif MD [address], [facility] [address] [place] [address] Assigned Heart and Vascular Provider 11/06/22 11/12/22 Catherine Cm MD [address] [facility] [address] [place] 801945 Assigned Heart and Vascular Provider 11/13/22 05/27/23 Sydnie Martinez, VJ Personal Advocate & Liaison (PAL) Family Medicine 03/28/23 07/31/23 Alfonso Renteria MD [address] [facility] [address] [place] [address] Assigned Neuroscience Provider 04/02/23 Cheng Todd PA-C [address] [place] [address] Assigned PCP 04/30/23 07/15/23 Radha Lomeli APRN ETL INFORMATICA DEVELOPER [address] [place] [address] Assigned Heart and Vascular Provider 05/28/23 Jelena David OD [address] [facility] [place] [address] MD Ophthalmology 06/15/23 Pao Joseph, RN Personal Advocate & Liaison (PAL) Nurse 08/01/23 11/07/23 Esha Grimm PA-C [address] [place] [phone] Assigned PCP 07/16/23 Valery Veronica PA-C [address] [place] [address] Physician Clothing Cutter Dermatology 09/19/23 Rey Tay MD [address] [place] [address] 276865 Gastroenterology 09/20/23 Rocky Zepeda DO [address] [place] [address] Physician Gastroenterology 09/20/23 Philip Dumont MD [address] [place] [address]9875 Physician Ophthalmology 09/22/23 Meredith Carrera PA-C [address] [place] [address] 648075 Assigned Gastroenterology Provider 11/01/23 Neil Kent MD [address] [place] [address] [phone] Dermatology 11/02/23 [place] [address] 0455[address] Neurological Surgery 12/26/23 Audrey Waite PA-C [address] [place], [place] [address] Physician Clothing Cutter Dermatology 02/28/24 documented as of this encounter
--- OUTSIDE RECORDS SUMMARY | 2024-03-12 19:44 | XMS_ITS | Encounter Summary ---
Author Organization [facility] Address [address] [place] [address] Care Team Providers Care Umbrella Cutter Name Role Phone Lita Oseguera Unavailable Unavailable Rakesh Cid PA-C Unavailable + [phone] Marija Edgar MODEL SET ARTIST WAREHOUSE RECORD CLERK Primary Care Provider Chanelle Gutierrez MODEL SET ARTIST CNM Unavailab le Lesley Moody CHW Unavailable Kyara De La Fuente RN Unavailable [phone] Marija Edgar APRN WAREHOUSE RECORD CLERK Unavailable Unavail able Mynor Broussard MD Unavailable [phone] Keisha Dotson MD Unavailable [phone] Mary Mejia Unavailable Unavailable Stacey Briones ONCOLOGY REP Unavailable [phone] Lesley Moody CHW Unavailable Mary Mejia Unavailable Unavailable Lita Oseguera Unavailable Unavailable Galo Burrell MD Unavailable Unavailable Cristina Wood Unavailable Lesley Moody CHW Unavailable Meredith Bedoya Unavailable Unavailable Cristina Wood Unavailable Diana Desir RPH Unavailable [phone] AnastaciaKailaRainsuki Paredes PA-C Unavailable [phone] Summer Lara MD Unavailable [phone] Summer Lara MD Unavailable [phone] Summer Lara MD Unavailable +[phone] Tavia Wyatt MD Unavailable Unavailable Johnny Murillo MD Unavailable +[phone]- Erica Farrell MODEL SET ARTIST WAREHOUSE RECORD CLERK Unavailable + VikasTeresita [facility] Unavailable Tavia Wyatt MD Unavailable Unavailable Diana Desir [facility] Unavailable [phone] Rich Barrett MD Unavailable +[phone] Neil Kent MD Unavailable Roney Story DPM Unavailable [phone] Erica Farrell MODEL SET ARTIST WAREHOUSE RECORD CLERK Unavailable Diana Desir [facility] Unavailable [phone] Jelena David OD Unavailable Galo Burrell MD Unavailable Unavailable Livan Sharif MD Unavailable + Livan Sharif MD Unavailable + Catherine Cm MD Unavailable + Valery Veronica PA-C Unavailable [phone] Catherine Cm MD Unavailable + Johnny Murillo MD Unavailable +[phone]- Brea Quinn MODEL SET ARTIST WAREHOUSE RECORD CLERK Unavailable [phone] Brea Quinn MODEL SET ARTIST WAREHOUSE RECORD CLERK Unavailable [phone] Jose Francisco Johnson MD Unavailable Livan Sharif MD Unavailable Catherine Cm MD Unavailable + Sydnie Martinez RN Unavailable Unavailable Alfonso Renteria MD Unavailable [phone] Esha Grimm PA-C Primary Care Provider Cheng Todd PA-C Unavailable ArmaniRadha APRN WAREHOUSE RECORD CLERK Unavailable [phone] FrankieJelena OD Unavailable Pao Joseph RN Unavailable Unavailable Esha Grimm PA-C Unavailable [phone] Valery Veronica PA-C Unavailable Rey Tay MD Unavailable Rocky Zepeda DO Unavailable Philip Dumont MD Unavailable [phone] Meredith Carrera PA-C Unavailable [phone] Neil Kent MD Unavailable Juan Pablo Emmanuel MD Unavailable Audrey Wa[place] PA-C Unavailable [phone] Reason for Visit * Reason Onset Date Comments Referral 05/19/2020 Encounter Details Date Type Department Care Team (Late st Contact Info) Description 05/19/2020 Telephone M Earl [facility] Epilepsy [facility] [place] [address], [address] [place] [address] Unknown Referral Social History Tobacco [...] COVID-19? No / Unsure 05/12/2020 9:03 AM ADMINISTRATIVE SUPPORT MANAGER documented as of this encounter Miscellaneous Notes * Telephone Encounter - Jake Mcphersonn Adam - 05/19/2020 2:[address] [facility] Call Center Phone Message May a detailed message be left on voicemail: yes Reason for Call: Appointment Intake Referring Provider Name: Marija Edgar APRN CNP in FAMILY PRACTICE Diagnosis and/or Symptoms: History of Seizures Being referred to [facility]. Please review. Thanks. Action Taken: Other: [facility] Travel Screening: Not Applicable NISTRATIVE SUPPORT MANAGER documented in this encounter Plan of Treatment Upcoming Encounters Date Type Department Care Team (Late st Contact Info) Description 03/26/2024 11:20 AM CDT Office Visit [facility] Spine and Neurosurgery [address] [facility] [address] [place] [address] Ebony Cid APRN WAREHOUSE RECORD CLERK [address] [place] [address] 03/27/2024 11:00 AM CDT Office Visit [facility] [place] [address] [facility] [address] [place] [phone] J[place] David, [place] [address] [facility] [place] [address] 04/19/2024 2:45 PM CDT Office Visit [facility] [address] [place] [phone] Audrey Waite PA-C [address] [place] [address] [address], [facility] [address] [place] [address] 05/08/2024 1:30 PM CDT Office Visit [facility] [address] [place] [address] Lauren Claudio PA-C [address] [place] [address] Esha Grimm PA-C [address] [place] [address] 06/21/2024 2:00 PM ADMINISTRATIVE SUPPORT MANAGER Office Visit [facility] Neurology [address], [address] [place] [phone] [place] [address] [place] [address] Johnny Penn MD [address] [place] [address] Scheduled Procedures Name Priority Associated Diagnoses Date/Ti mo ESOPHAGOGASTRODUODENOSCOPY Eosinophilic esophagitis Esophageal dysphagia documented as of this encounter Visit Diagnoses Not on filedocumented in this encounter Additional Health Concerns Infection Onset Date Last Indicated Resolved Time Rule Out COVID-19 07/30/2020 07/30/2020 07/30/2020 7:11 PM ADMINISTRATIVE SUPPORT MANAGER Rule Out COVID-19 08/30/2020 08/30/2020 08/30/2020 5:05 PM ADMINISTRATIVE SUPPORT MANAGER Rule Out COVID-19 09/24/2020 09/24/2020 09/24/2020 9:24 AM CDT Rule Out COVID-19 11/05/2020 11/05/2020 11/06/2020 1:09 PM CDT Rule Out COVID-19 05/11/2021 05/11/2021 05/13/2021 10:18 AM CDT Rule Out COVID-19 07/13/2021 07/13/2021 07/14/2021 3:04 PM ADMINISTRATIVE SUPPORT MANAGER Rule Out COVID-19 07/18/2021 07/18/2021 07/20/2021 1:56 PM ADMINISTRATIVE SUPPORT MANAGER COVID-19 07/18/2021 07/18/2021 08/08/2021 11:3 9 PM ADMINISTRATIVE SUPPORT MANAGER Rule Out COVID-19 12/18/2021 12/18/2021 12/19/2021 11:34 AM CDT Rule Out COVID-19 02/24/2022 02/24/2022 02/25/2022 1:08 PM CDT Rule Out COVID-19 04/26/2022 04/26/2022 04/26/2022 6:47 AM CDT Rule Out COVID-19 05/17/2022 05/17/2022 05/17/2022 10:20 PM ADMINISTRATIVE SUPPORT MANAGER Rule Out COVID-19 06/09/2022 06/09/2022 06/09/2022 9:35 AM ADMINISTRATIVE SUPPORT MANAGER COVID-19 06/09/2022 06/09/2022 06/30/2022 11:4 1 PM ADMINISTRATIVE SUPPORT MANAGER Rule Out COVID-19 11/10/2022 11/10/2022 11/11/2022 12:17 PM CDT Rule Out COVID-19 03/07/2023 03/07/2023 03/07/2023 1:20 PM CDT Rule Out COVID-19 12/26/2023 12/26/2023 12/26/2023 9:50 AM CDT Assessment Noted Time PHQ-9 Depression Total Score: 6 08/28/19 21 7:05 AM ADMINISTRATIVE SUPPORT MANAGER documented as of this encounter Care Teams Umbrella Cutter Relationship Specialty Start Date End Date Marija Edgar APRN WAREHOUSE RECORD CLERK [address] [address] PCP - General Nurse Practitioner 04/30/20 04/14/23 Esha Grimm PA-C [address] [phone] PCP - General Family Medicine 05/04/23 Lita Oseguera Personal Advocate & Liaison (PAL) 02/28/20 03/27/23 Rakesh Cid PA-C [address] [place] [address] Assigned PCP 03/02/20 06/07/20 Chanelle Mccann APRN CNM [address] [facility] [address] [place] [address] Assigned OBGYN Provider 05/02/2005/09 Lesley Moody, CHW Community Health Worker 05/30/2005/12 Kyara De La Fuente, RN Specialty Credentialing Specialist Neurology 06/04/20 03/05/21 Marija Edgar APRN WAREHOUSE RECORD CLERK [address] [place] [place] [address] Assigned PCP 06/08/20 04/29/23 Mynor Broussard MD [address] [facility] 500 [place] [address] Assigned Surgical Provider 06/01/20 11/28/21 Keisha Dotson MD [address] [place] [address] Assigned Neuroscience Provider 06/04/20 04/01/23 Mary Mejia Financial Resource Worker 08/07/20 08/21/20 Stacey Briones, ONCOLOGY REP Lead Credentialing Specialist Primary Care - CC 08/11/2012/30 Lesley Moody CHW Community Health Worker 08/11/2010/01 Mary Mejia [...] [facility] [address] [place], [place] [address] Pharmacist Pharmacist 04/17/21 Rain Galaviz PA-C [address] [place] [address] [address] [place] [place], [place] [phone] Physician Conservation Scientist Dermatology 04/28/21 Summer Lara MD [address] [place] [address]25554 Assigned OBGYN Provider 05/10/2105/23 Summer Lara MD [address] [place] [address] Assigned OBGYN Provider 05/31/21 2 Summer Lara MD [address] [place] [address] Assigned OBGYN Provider 05/24/2105/30 Tavia Wyatt MD [address] [place] [address] Dermatology 07/14/21 Johnny Murillo MD [address] [place] [address] Assigned Musculoskeletal Provider 08/30/21 03/17/22 Erica Farrell, MODEL SET ARTIST WAREHOUSE RECORD CLERK [address] [place], [place] [address] Nurse Practitioner Cardiovascular Disease 09/09/21 Teresita Bean, [facility] [address] [place], [place] [phone] Pharmacist Pharmacist 09/24/21 09/29/21 Tavia Wyatt MD Assigned Surgical Provider 11/29/21 05/07/22 [facility] [address] [facility] [place] [address] Assigned MTM Pharmacist 01/02/22 Rich Barrett MD [address] [facility] [address] [place], [place] [address] Physician Ophthalmology 01/21/22 Neil Kent MD [address] [place], [place] [phone] Dermatology 02/24/22 Roney Story DPM [address] [facility] [address] [place], [place] [address] Assigned Musculoskeletal Provider 03/20/22 08/13/22 Erica Farrell APRN WAREHOUSE RECORD CLERK [address] [place] [address] Assigned Heart and Vascular Provider 04/03/22 04/16/22 Diana Desir, [facility] [address] [place] [address] Assigned MTM Pharmacist 04/07/22 Jelena David OD [address] [facility] [place] [address] Assigned Surgical Provider 05/08/22 10/08/22 Galo Burrell MD Assigned Heart and Vascular Provider 04/17/22 06/11/22 Livan Sharif MD [address] [place] [address] Cardiovascular Disease 05/14/22 Livan Sharif MD [address] [place] [address] Assigned Heart and Vascular Provider 06/12/22 07/23/22 Catherine Cm MD [address] [place] [address] Cardiovascular Disease 07/21/22 Valery Veronica, PAUcheC [address] [place] [address] Physician Conservation Scientist Dermatology 07/21/22 Catherine Cm MD [address] [facility] [address] [place] [address] Assigned Heart and Vascular Provider 07/24/22 11/05/22 Johnny Murillo MD [address] [id number] Assigned Musculoskeletal Provider 08/14/22 10/08/22 Brea Quinn APRN WAREHOUSE RECORD CLERK [address] [place], [place] [phone] Nurse Practitioner Dermatology 09/21/22 Brea Quinn APRN WAREHOUSE RECORD CLERK [address] [facility] [place] [id number] Assigned Surgical Provider 10/09/22 [place] [address] [address] Assigned Musculoskeletal Provider 10/09/22 Livan Sharif MD [address] [facility] [address] [place] [address] Assigned Heart and Vascular Provider 11/06/22 11/12/22 Catherine Cm MD [address] [facility] [address] [place] [id number] Assigned Heart and Vascular Provider 11/13/22 05/27/23 Sydnie Martinez RN Personal Advocate & Liaison (PAL) Family Medicine 03/28/23 07/31/23 Alfonso Renteria MD [address] [facility] [address] [place] [address] Assigned Neuroscience Provider 04/02/23 Cheng Todd PA-C [address] [place] [address] Assigned PCP 04/30/23 07/15/23 Radha Lomeli APRN WAREHOUSE RECORD CLERK [address] [facility] [address] [place], [place] [address] Assigned Heart and Vascular Provider 05/28/23 Jelena David OD [address] [facility] [place] [address] Ophthalmology 06/15/23 Pao Joseph, VJ Personal Advocate & Liaison (PAL) Nurse 08/01/23 11/07/23 Esha Grimm PA-C [address] [place] [phone] Assigned PCP 07/16/23 Valery Veronica PA-C [address] [place] [address] 4470[address] Physician Conservation Scientist Dermatology 09/19/23 Rey Tay MD [address] [place] [address] Gastroenterology 09/20/23 Rocky Zepeda DO [address] [place] [address] 6047[address] Physician Gastroenterology 09/20/23 Philip Dumont MD [address] [place] [address] Physician Ophthalmology 09/22/23 Meredith Carrera PA-C [address] [place] [address] Assigned Gastroenterology Provider 11/01/23 Neil Kent MD [address] [place] [address] Dermatology 11/02/23 [place] [address] [place] [place] [address] Neurological Surgery 12/26/23 Audrey Waite PA-C [address] [place] [address] Physician Conservation Scientist Dermatology 02/28/24 documented as of this encounter
--- OUTSIDE RECORDS SUMMARY | 2024-03-12 19:44 | XMS_ITS | Encounter Summary ---
Author Organization [facility] Address [address] [place] [address] Care Team Providers Care Launch Check Out Name Role Phone Rakesh Cid PA-C Primary Care Provider Lita Oseguera Unavailable Unavailable Rakesh Cid PA-C Unavailable [phone] Lita Oseguera Unavailable Unavailable Marija Edgar APRN COFFEE BREAK ATTENDANT Primary Care Provider Chanelle Gutierrez GEL COAT SPRAYER CNM Unavailab le Lesley Moody CHW Unavailable Kyara De La Fuente RN Unavailable [phone] Marija Edgar APRN COFFEE BREAK ATTENDANT Unavailable Unavail able Myonr Broussard MD Unavailable [phone] Keisha Dotson MD Unavailable Mary Mejia Unavailable Unavailable Stacey Briones FERMENTATION OPERATOR Unavailable [phone] Lesley Moody CHW Unavailable Mary Mejia Unavailable Unavailable Lita Oseguera Unavailable Unavailable Galo Burrell MD Unavailable Unavailable Cristina Wood Unavailable Lesley Moody CHW Unavailable Meredith Bedoya Unavailable Unavailable Cristina Wood Unavailable DesirDiana [facility] Unavailable [phone] Rain Galaviz-C Unavailable [phone] Summer Lara MD Unavailable [phone] Summer Lara MD Unavailable +[phone] Summer Lara MD Unavailable [phone] Tavia Wyatt MD Unavailable Unavailable Johnny Murillo MD Unavailable [phone] Erica Farrell APRN COFFEE BREAK ATTENDANT Unavailable + Teresita Bean [facility] Unavailable Tavia Wyatt MD Unavailable Unavailable Diana Desir [facility] Unavailable [phone] Rich Barrett MD Unavailable [phone] Neil Kent MD Unavailable Roney Story DPM Unavailable Erica Farrell APRN COFFEE BREAK ATTENDANT Unavailable + Diana Desir [facility] Unavailable [phone] Jelena David OD Unavailable Galo Burrell MD Unavailable Unavailable Livan Sharif MD Unavailable + Livan Sharif MD Unavailable + Cahterine Cm MD Unavailable + Valery Veronica-C Unavailable [phone] Catherine Cm MD Unavailable + Johnny Murillo MD Unavailable [phone] Brea Quinn APRN COFFEE BREAK ATTENDANT Unavailable [phone] [place], Brea P GEL COAT SPRAYER COFFEE BREAK ATTENDANT Unavailable Jose Francisco Johnson MD Unavailable Livan Sharif MD Unavailable Catherine Cm MD Unavailable + Sydnie Martinez RN Unavailable Unavailable Alfonso Renteria MD Unavailable [phone] Esha Grimm PA-C Primary Care Provider Cheng Todd PA-C Unavailable Armani Radha Sia GEL COAT SPRAYER COFFEE BREAK ATTENDANT Unavailable Jelena David OD Unavailable [phone] Pao Joseph RN Unavailable Unavailable Esha Grimm PA-C Unavailable [phone] Valery Veronica PA-C Unavailable Rey Tay MD Unavailable Rocky Zepeda DO Unavailable Philip Dumont MD Unavailable Meredith Carrera PA-C Unavailable Neil Kent MD Unavailable Juan Pablo Emmanuel MD Unavailable Audrey Waite PA-C Unavailable Encounter Details Date Type Department Care Team (Late st Contact Info) Description 04/28/2020 [facility] Medical Advice [address] [address] Rakesh Cid PA-C [address] [place] [address] Social History Tobacco Use Types [...] 11:20 AM CDT Office Visit [facility] [address] [facility] [address] [place] [address] Ebony Cid, GEL COAT SPRAYER [facility] [address] [place], [place] [address] 03/27/2024 11:00 AM CDT Office Visit [facility] [address] [place] [phone] Jelena David, [address] [facility] [place] [address] 04/19/2024 2:45 PM CDT Office Visit [facility] [address] [place] [address] Audrey Waite PA-C [address] [place] [address] B385, [facility] [address] [place], [place] [address] 05/08/2024 1:30 PM CDT Office Visit [facility] [address] [place] [phone] Lauren Claudio PA-C [address] [facility], [place] [phone] Esha Grimm PA-C [address] [place] [address] 06/21/2024 2:00 PM STITCH BONDING MACHINE OPERATOR Office Visit [facility] [address] [place] [address], [address] [place] [address] [place] [address] [place] [address] Johnny Penn MD [address] [place] [address] Scheduled Procedures Name Priority Associated Diagnoses Date/Ti nh ESOPHAGOGASTRODUODENOSCOPY Eosinophilic esophagitis Esophageal dysphagia documented as of this encounter Visit Diagnoses Not on filedocumented in this encounter Additional Health Concerns Infection Onset Date Last Indicated Resolved Time Rule Out COVID-19 07/30/2020 07/30/2020 07/30/2020 7:11 PM STITCH BONDING MACHINE OPERATOR Rule Out COVID-19 08/30/2020 08/30/2020 08/30/2020 5:05 PM STITCH BONDING MACHINE OPERATOR Rule Out COVID-19 09/24/2020 09/24/2020 09/24/2020 9:24 AM CDT Rule Out COVID-19 11/05/2020 11/05/2020 11/06/2020 1:09 PM CDT Rule Out COVID-19 05/11/2021 05/11/2021 05/13/2021 10:18 AM CDT Rule Out COVID-19 07/13/2021 07/13/2021 07/14/2021 3:04 PM STITCH BONDING MACHINE OPERATOR Rule Out COVID-19 07/18/2021 07/18/2021 07/20/2021 1:56 PM STITCH BONDING MACHINE OPERATOR COVID-19 07/18/2021 07/18/202108/0808/08/2021 11:3 9 PM STITCH BONDING MACHINE OPERATOR Rule Out COVID-19 12/18/2021 12/18/2021 12/19/2021 11:34 AM CDT Rule Out COVID-19 02/24/2022 02/24/2022 02/25/2022 1:08 PM CDT Rule Out COVID-19 04/26/2022 04/26/2022 04/26/2022 6:47 AM CDT Rule Out COVID-19 05/17/2022 05/17/2022 05/17/2022 10:20 PM STITCH BONDING MACHINE OPERATOR Rule Out COVID-19 06/09/2022 06/09/2022 06/09/2022 9:35 AM STITCH BONDING MACHINE OPERATOR COVID-19 06/09/2022 06/09/2022 06/30/2022 11:4 1 PM STITCH BONDING MACHINE OPERATOR Rule Out COVID-19 11/10/2022 11/10/2022 11/11/2022 12:17 PM CDT Rule Out COVID-19 03/07/2023 03/07/2023 03/07/2023 1:20 PM CDT Rule Out COVID-19 12/26/2023 12/26/2023 12/26/2023 9:50 AM CDT Assessment Noted Time PHQ-9 Depression Total Score: 12 020 2:40 PM CDT documented as of this encounter Care Teams Launch Check Out Relationship Specialty Start Date End Date Rakesh Cid PA-C PCP - General Physician Primary Care Sales Representative - Medical 05/14/19 04/29/20 Marija Edgar APRN CNP [address] [facility] [place] [address] PCP - General Nurse Practitioner 04/30/20 04/14/23 Esha Grimm PA-C [address] [place] [phone] PCP - General Family Medicine 05/04/23 Lita Oseguera Personal Advocate & Liaison (PAL) 02/28/20 03/27/23 Rakesh Cid PA-C [address] [place] [address] Assigned PCP 03/02/20 06/07/20 Lita Oseguera Personal Advocate & Liaison (PAL) 04/07/20 04/29/20 Chanelle Mccann APRN CNM [address] [facility] [address] [place] [address] Assigned OBGYN Provider 05/02/2005/09 Lesley Moody, CHW Community Health Worker 05/30/2005/12 Kyara De La Fuente, RN Specialty House Mover Neurology 06/04/20 03/05/21 Marija Edgar APRN COFFEE BREAK ATTENDANT [address] [facility] [place] [address] Assigned PCP 06/08/20 04/29/23 Mynor Broussard MD [address] [facility] 500 [place] [address] Assigned Surgical Provider 06/01/20 11/28/21 Keisha Dotson MD 909 [place] [address] Assigned Neuroscience Provider 06/04/20 04/01/23 Mary Mejia Financial Resource Worker 08/07/20 08/21/20 Stacey Briones, [facility] Lead House Mover Primary Care - CC 08/11/2012/30 Lesley Moody, CHW Community Health Worker 08/11/2010/01 Nikiatimothy Mary Financial [...] Resource Worker 02/09/21 02/09/21 Diana Desir, [facility] [address] [place], [place] [address] Pharmacist Pharmacist 04/17/21 Rain Galaviz PA-C [address] [place] [address] [address] [place], [place] [phone] Physician Primary Care Sales Representative Dermatology 04/28/21 Summer Lara MD [address] [place] [address] [phone] Assigned OBGYN Provider 05/10/2105/23 Summer Lara MD [address] [place] [address] [phone] Assigned OBGYN Provider 05/31/21 2 Summer Lara MD [address] [place] [address] [phone] Assigned OBGYN Provider 05/24/2105/30 Tavia Wyatt MD [address] [place] [address] Dermatology 07/14/21 Johnny Murillo MD [address] [place] [address] Assigned Musculoskeletal Provider 08/30/21 03/17/22 Erica Farrell APRN COFFEE BREAK ATTENDANT [address] [place] [address] Nurse Practitioner Cardiovascular Disease 09/09/21 Teresita Bean, [facility] [address] [place], [place] [phone] Pharmacist Pharmacist 09/24/21 09/29/21 Tavia Wyatt MD Assigned Surgical Provider 11/29/21 05/07/22 [facility] [address] [place] [address] Assigned MTM Pharmacist 01/02/22 Rich Barrett MD [address] [facility] [address] [place], [place] [address] Physician Ophthalmology 01/21/22 Neil Kent MD [address] [place], [place] [address] Dermatology 02/24/22 Roney Story DPM [address] [facility] [address] [place], [place] [address] Assigned Musculoskeletal Provider 03/20/22 08/13/22 Erica Farrell APRN COFFEE BREAK ATTENDANT [address] [place] [address] Assigned Heart and Vascular Provider 04/03/22 04/16/22 [facility] [address] [place] [address] Assigned MTM Pharmacist 04/07/22 Jelena David OD [address] [place] [address] Assigned Surgical Provider 05/08/22 10/08/22 Galo Burrell MD Assigned Heart and Vascular Provider 04/17/22 06/11/22 Livan Sharif MD [address] [place] [address] Cardiovascular Disease 05/14/22 Livan Sharif MD [address] [place] [address] Assigned Heart and Vascular Provider 06/12/22 07/23/22 Catherine Cm MD [address] [place] [address] Cardiovascular Disease 07/21/22 Valery Veronica PAUcheC [address] [place] [address] Physician Primary Care Sales Representative Dermatology 07/21/22 Catherine Cm MD [address] [place] [address] [place] [address] Assigned Heart and Vascular Provider 07/24/22 11/05/22 Johnny Murillo MD [facility] [address] 220[address] Assigned Musculoskeletal Provider 08/14/22 10/08/22 Brea Quinn APRN COFFEE BREAK ATTENDANT [address] [place] [address] [phone] Nurse Practitioner Dermatology 09/21/22 Brea Quinn APRN COFFEE BREAK ATTENDANT [address] [place] [address] [facility] [place] [place] 6[address]462 Assigned Surgical Provider 10/09/22 [place] [address] [place] [address] [phone] Assigned Musculoskeletal Provider 10/09/22 Livan Sharif MD [address] [place] [address] [place] [phone] Assigned Heart and Vascular Provider 11/06/22 11/12/22 Catherine Cm MD [address] [place] [address] [place] 923605 Assigned Heart and Vascular Provider 11/13/22 05/27/23 Sydnie Martinez RN Personal Advocate & Liaison (PAL) Family Medicine 03/28/23 07/31/23 Alfonso Renteria MD [address] [facility] [address] [place] [address] Assigned Neuroscience Provider 04/02/23 Cheng Todd PA-C [address] [place] [address] Assigned PCP 04/30/23 07/15/23 Radha Lomeli APRN COFFEE BREAK ATTENDANT [address] [facility] [address] [place], [place] [address] Assigned Heart and Vascular Provider 05/28/23 Jelena David OD [address] [place] [address] Ophthalmology 06/15/23 Pao Joseph, VJ Personal Advocate & Liaison (PAL) Nurse 08/01/23 11/07/23 Esha Grimm PA-C [address] [place] [phone] Assigned PCP 07/16/23 Valery Veronica PA-C [address] [place] [address] 060825 Physician Primary Care Sales Representative Dermatology 09/19/23 Rey Tay MD [address] [place] [address] [phone] Gastroenterology 09/20/23 Rocky Zepeda DO [address] [place] [address] 588955 Physician Gastroenterology 09/20/23 Philip Dumont MD [address] [place] [address] Physician Ophthalmology 09/22/23 Meredith Carrera PA-C [address] [place] [address] 093115 Assigned Gastroenterology Provider 11/01/23 Neil Kent MD [address] 703[address] Dermatology 11/02/23 [place] [address] [place], [place] [address] Neurological Surgery 12/26/23 Audrey Waite PA-C [address] [place] [address] [phone] Physician Primary Care Sales Representative Dermatology 02/28/24 documented as of this encounter
--- OUTSIDE RECORDS SUMMARY | 2024-03-12 19:44 | XMS_ITS | Encounter Summary ---
Author Organization [place] Address [address] [place] [address] Care Team Providers Care Foamite Mixer Name Role Phone Lita Oseguera Unavailable Unavailable Rakesh Cid PA-C Unavailable + [phone] Marija Edgar GLUE BONE CRUSHER SALES DEPARTMENT CLERK Primary Care Provider Chanelle Gutierrez GLUE BONE CRUSHER CNM Unavailab le Lesley Moody CHW Unavailable Kyara De La Fuente RN Unavailable [phone] Marija Edgar APRN SALES DEPARTMENT CLERK Unavailable Unavail able Mynor Broussard MD Unavailable [phone] Keisha Dotson MD Unavailable [phone] Mary Mejia Unavailable Unavailable Stacey Briones OVEN PRESS TENDER Unavailable [phone] Lesley Moody CHW Unavailable [phone] Mary Mejia Unavailable Unavailable Lita Oseguera Unavailable Unavailable Galo Burrell MD Unavailable Unavailable Cristina Wood Unavailable Lesley Moody CHW Unavailable [phone] Meredith Bedoya Unavailable Unavailable Cristina Wood Unavailable Diana Desir RPH Unavailable [phone] AnastaciaKailaRainsuki Paredes PA-C Unavailable [phone] Summer Lara MD Unavailable [phone] Summer Lara MD Unavailable [phone] Summer Lara MD Unavailable [phone] Tavia Wyatt MD Unavailable Unavailable Johnny Murillo MD Unavailable +1- Erica Farrell GLUE BONE CRUSHER SALES DEPARTMENT CLERK Unavailable + VikasTeresita [facility] Unavailable Tavia Wyatt MD Unavailable Unavailable Diana Desir [facility] Unavailable [phone] Rich Barrett MD Unavailable [phone] Neil Kent MD Unavailable Roney Story DPM Unavailable [phone] Erica Farrell GLUE BONE CRUSHER SALES DEPARTMENT CLERK Unavailable Diana Desir [facility] Unavailable [phone] Jelena David OD Unavailable Galo Burrell MD Unavailable Unavailable Livan Sharif MD Unavailable + Livan Sharif MD Unavailable + Catherine Cm MD Unavailable + Valery Veronica PA-C Unavailable [phone] Catherine Cm MD Unavailable + Johnny Murillo MD Unavailable +1- Brea Quinn GLUE BONE CRUSHER SALES DEPARTMENT CLERK Unavailable [phone] Brea Quinn GLUE BONE CRUSHER SALES DEPARTMENT CLERK Unavailable [phone] Jose Francisco Johnson MD Unavailable Livan Sharif MD Unavailable Catherine Cm MD Unavailable + Sydnie Martinez RN Unavailable Unavailable Alfonso Renteria MD Unavailable [phone] Esha Grimm PA-C Primary Care Provider Cheng Todd PA-C Unavailable Radha Lomeli APRN SALES DEPARTMENT CLERK Unavailable [phone] FrankieJelena OD Unavailable Pao Joseph RN Unavailable Unavailable Esha Grimm PA-C Unavailable [phone] Valery Veronica PA-C Unavailable Rey Tay MD Unavailable Rocky Zepeda DO Unavailable Philip Dumont MD Unavailable [phone] Meredith Carrera PA-C Unavailable Neil Kent MD Unavailable Juan Pablo Emmanuel MD Unavailable Audrey Waite PA-C Unavailable [phone] Encounter Details Date Type Department Care Team (Late st Contact Info) Description 06/05/2020 MyC Medical Advice [address] [address] Marija Edgar APRN SALES DEPARTMENT CLERK Social History Tobacco Use Types Packs/Day Years [...] COVID-19? No / Unsure 06/04/2020 10:30 AM ASSISTANT FIELD HOCKEY COACH documented as of this encounter Miscellaneous Notes * Telephone Encounter - Marija Edgar APRN CNP - 06/09/2020 9:38 AM ASSISTANT FIELD HOCKEY COACH Those referrals have been placed. The mental health attempted call but patient did not answer. Please have patient check voicemail's or await one further follow-up call. They will call her to set up Holter monitor. Thank you Marija Edgar APRN CNP on 06/09/2020 at 9:40 AM STANT FIELD HOCKEY COACH documented in this encounter Plan of Treatment Upcoming Encounters Date Type Department Care Team (Late st Contact Info) Description 03/26/2024 11:20 AM CDT Office Visit [facility] Spine and Neurosurgery [address] [facility] [address] [place] [address] Ebony Cid APRN SALES DEPARTMENT CLERK [address] [place] [address] 03/27/2024 11:00 AM CDT Office Visit [facility] [address] [facility] [address] [place] [phone] Jelena David, [address] [facility] [place] [address] 04/19/2024 2:45 PM CDT Office Visit [facility] [address] [place] [phone] Audrey Waite PA-C [address] [place] [address] B385, [facility] [address] [place], [place] [address] 05/08/2024 1:30 PM CDT Office Visit [facility] [address] [place] [address] Lauren Claudio PA-C [address] [place] [address] Esha Grimm PA-C [address] [place] [address] 06/21/2024 2:00 PM ASSISTANT FIELD HOCKEY COACH Office Visit [facility] Neurology [address], [address] [place] [phone] [place] [address] [place] [address] Johnny Penn MD [address] [place] [address] Scheduled Procedures Name Priority Associated Diagnoses Date/Ti vt ESOPHAGOGASTRODUODENOSCOPY Eosinophilic esophagitis Esophageal dysphagia documented as of this encounter Visit Diagnoses Not on filedocumented in this encounter Additional Health Concerns Infection Onset Date Last Indicated Resolved Time Rule Out COVID-19 07/30/2020 07/30/2020 07/30/2020 7:11 PM ASSISTANT FIELD HOCKEY COACH Rule Out COVID-19 08/30/2020 08/30/2020 08/30/2020 5:05 PM ASSISTANT FIELD HOCKEY COACH Rule Out COVID-19 09/24/2020 09/24/2020 09/24/2020 9:24 AM CDT Rule Out COVID-19 11/05/2020 11/05/2020 11/06/2020 1:09 PM CDT Rule Out COVID-19 05/11/2021 05/11/2021 05/13/2021 10:18 AM CDT Rule Out COVID-19 07/13/2021 07/13/2021 07/14/2021 3:04 PM ASSISTANT FIELD HOCKEY COACH Rule Out COVID-19 07/18/2021 07/18/2021 07/20/2021 1:56 PM ASSISTANT FIELD HOCKEY COACH COVID-19 07/18/2021 07/18/2021 08/08/2021 11:3 9 PM ASSISTANT FIELD HOCKEY COACH Rule Out COVID-19 12/18/2021 12/18/2021 12/19/2021 11:34 AM CDT Rule Out COVID-19 02/24/2022 02/24/2022 02/25/2022 1:08 PM CDT Rule Out COVID-19 04/26/2022 04/26/2022 04/26/2022 6:47 AM CDT Rule Out COVID-19 05/17/2022 05/17/2022 05/17/2022 10:20 PM ASSISTANT FIELD HOCKEY COACH Rule Out COVID-19 06/09/2022 06/09/2022 06/09/2022 9:35 AM ASSISTANT FIELD HOCKEY COACH COVID-19 06/09/2022 06/09/2022 06/30/2022 11:4 1 PM ASSISTANT FIELD HOCKEY COACH Rule Out COVID-19 11/10/2022 11/10/2022 11/11/2022 12:17 PM CDT Rule Out COVID-19 03/07/2023 03/07/2023 03/07/2023 1:20 PM CDT Rule Out COVID-19 12/26/2023 12/26/2023 12/26/2023 9:50 AM CDT Assessment Noted Time PHQ-9 Depression Total Score: 9 06/04/20 20 10:35 AM ASSISTANT FIELD HOCKEY COACH documented as of this encounter Care Teams Foamite Mixer Relationship Specialty Start Date End Date Marija Edgar APRN SALES DEPARTMENT CLERK [address] [address] [address] PCP - General Nurse Practitioner 04/30/20 04/14/23 Esha Grimm PA-C [address] [address] [phone] PCP - General Family Medicine 05/04/23 Lita Oseguera Personal Advocate & Liaison (PAL) 02/28/20 03/27/23 Rakesh Cid PA-C [address] [place] [address] Assigned PCP 03/02/20 06/07/20 Chanelle Mccann APRN CNM [address] [address] [address] [place] [address] Assigned OBGYN Provider 05/02/2005/09 Lesley Moody, CHW Community Health Worker 05/30/2005/12 Kyara De La Fuente, RN Specialty Production Operations Manager Neurology 06/04/20 03/05/21 Marija Edgar APRN SALES DEPARTMENT CLERK [address] [facility] [address] Assigned PCP 06/08/20 04/29/23 Mynor Broussard MD [address] [facility] 500 [place] [address] Assigned Surgical Provider 06/01/20 11/28/21 Keisha Dotson MD [address] [place] [address] Assigned Neuroscience Provider 06/04/20 04/01/23 Mary Mejia Financial Resource Worker 08/07/20 08/21/20 Stacey Briones, OVEN PRESS TENDER Lead Production Operations Manager Primary Care - CC 08/11/2012/30 Lesley [...] Diana Desir, [facility] [address] [facility] [place], [place] [address] Pharmacist Pharmacist 04/17/21 Rain Galaviz PA-C [address] [place] [address] [address] [place], [place] [phone] Physician Extractor Operator Helper Dermatology 04/28/21 Summer Lara MD [address] [place] [address] Assigned OBGYN Provider 05/10/2105/23 Summer Lara MD [address] [place] [address] Assigned OBGYN Provider 05/31/21 Summer Lara MD [address] [place] [address] Assigned OBGYN Provider 05/24/2105/30 Tavia Wyatt MD [address] [place] [address] Dermatology 07/14/21 Johnny Murillo MD [address] [place] [address] Assigned Musculoskeletal Provider 08/30/21 03/17/22 Erica Farrell APRN SALES DEPARTMENT CLERK [address] [place] [address] Nurse Practitioner Cardiovascular Disease 09/09/21 Teresita Bean, [facility] [address] [place], [place] [phone] Pharmacist Pharmacist 09/24/21 09/29/21 Tavia Wyatt MD Assigned Surgical Provider 11/29/21 05/07/22 [facility] [address] [place] [address] Assigned MTM Pharmacist 01/02/22 Rich Barrett MD [address] [facility] [address] [place], [place] [phone] Physician Ophthalmology 01/21/22 Neil Kent MD [address] [place], [place] [address] Dermatology 02/24/22 Roney Story DPM [address] [facility] [address] [place], [place] [address] Assigned Musculoskeletal Provider 03/20/22 08/13/22 Erica Farrell APRN SALES DEPARTMENT CLERK [address] [place] [address] Assigned Heart and Vascular Provider 04/03/22 04/16/22 Diana Desir, [facility] [address] [place], [place] [address] Assigned MTM Pharmacist 04/07/22 Jelena David OD [address] [place] [address] Assigned Surgical Provider 05/08/22 10/08/22 Galo Burrell MD Assigned Heart and Vascular Provider 04/17/22 06/11/22 Livan Sharif MD [address] [place] [address] Cardiovascular Disease 05/14/22 Livan Sharif MD [address] [place] [address] Assigned Heart and Vascular Provider 06/12/22 07/23/22 Catherine Cm MD [address] [place], [place] [address] Cardiovascular Disease 07/21/22 Valery Veronica, PAUcheC [address] [place] [address] Physician Extractor Operator Helper Dermatology 07/21/22 Catherine Cm MD [address] [place] [address] Assigned Heart and Vascular Provider 07/24/22 11/05/22 Johnny Murillo MD [address] [phone] Assigned Musculoskeletal Provider 08/14/22 10/08/22 Brea Quinn APRN SALES DEPARTMENT CLERK [address] [place], [place] [phone] Nurse Practitioner Dermatology 09/21/22 Brea Quinn APRN SALES DEPARTMENT CLERK [address] [facility] [place] [address] Assigned Surgical Provider 10/09/22 [place] [address] [facility] [address] [place], [place] [address] Assigned Musculoskeletal Provider 10/09/22 Livan Sharif MD [address] [address] [place] [phone] Assigned Heart and Vascular Provider 11/06/22 11/12/22 Catherine Cm MD [address] [place] [address] Assigned Heart and Vascular Provider 11/13/22 05/27/23 Sydnie Martinez RN Personal Advocate & Liaison (PAL) Family Medicine 03/28/23 07/31/23 Alfonso Renteria MD [address] [facility] [address] [place] [address] Assigned Neuroscience Provider 04/02/23 Cheng Todd PA-C [address] [place] [address] Assigned PCP 04/30/23 07/15/23 Radha Lomeli APRN SALES DEPARTMENT CLERK [address] [facility] [address] [place] [address] Assigned Heart and Vascular Provider 05/28/23 Jelena David OD [address] [place] [address] Ophthalmology 06/15/23 Pao Joseph, VJ Personal Advocate & Liaison (PAL) Nurse 08/01/23 11/07/23 Esha Grimm PA-C [address] [place] [phone] Assigned PCP 07/16/23 Valery Veronica PA-C [address] [place] [address] Physician Extractor Operator Helper Dermatology 09/19/23 Rey Tay MD [address] [place] [address] Gastroenterology 09/20/23 Rocky Zepeda DO [address] [place] [address] Physician Gastroenterology 09/20/23 Philip Dumont MD [address] [place] [address] Physician Ophthalmology 09/22/23 Meredith Carrera PA-C [address] [place] [address] Assigned Gastroenterology Provider 11/01/23 Neil Kent MD [address] [place] [address] Dermatology 11/02/23 [place] [address] [address] Neurological Surgery 12/26/23 Audrey Waite PA-C [address] [place] [address] Physician Extractor Operator Helper Dermatology 02/28/24 documented as of this encounter
--- OUTSIDE RECORDS SUMMARY | 2024-03-12 19:44 | XMS_ITS | Encounter Summary ---
Author Organization [facility] Address [address] [place] [address] Care Team Providers Care Head Of Commission Department Name Role Phone Lita Oseguera Unavailable Unavailable Marija Edgar APRN SURG RN Primary Care Provider Chanelle Gutierrez APRN CNM Unavailab le Kyara De La Fuente RN Unavailable [phone] Marija Edgar APRN SURG RN Unavailable Unavail able Mynor Broussard MD Unavailable [phone] Keisha Dotson MD Unavailable Mary Mejia Unavailable Unavailable Stacey Briones [employer] Unavailable Lesley Moody CHW Unavailable Mary Mejia Unavailable Unavailable Lita Oseguera Unavailable Unavailable Galo Burrell MD Unavailable Unavailable Cristina Wood Unavailable Lesley Moody CHW Unavailable Meredith Bedoya Unavailable Unavailable Cristina Wood Unavailable Diana Desir [facility] Unavailable Rain Galaviz PA-C Unavailable Summer Lara MD Unavailable [phone] Summer Lara MD Unavailable [phone] Summer Lara MD Unavailable + [phone] Tavia Wyatt MD Unavailable Unavailable SemJohnny mckeon MD Unavailable +1- Erica Farrell CHECKER IN SURG RN Unavailable + BeanTeresita RPH Unavailable Tavia Wyatt MD Unavailable Unavailable Diana Desir H Unavailable [phone] Rich Barrett MD Unavailable [phone] Neil Kent MD Unavailable Roney Story DPM Unavailable [phone] Erica Farrell CHECKER IN SURG RN Unavailable + Diana Desir RPH Unavailable [phone] Jelena David OD Unavailable [phone] Galo Burrell MD Unavailable Unavailable Livan Sharif MD Unavailable + Livan Sharif MD Unavailable + Catherine Cm MD Unavailable + Valery Veronica PA-C Unavailable [phone] Catherine Cm MD Unavailable + Johnny Murillo MD Unavailable +1- Brea Quinn CHECKER IN SURG RN Unavailable [phone] Brea Quinn CHECKER IN SURG RN Unavailable [phone] Jose Francisco Johnson MD Unavailable Livan Sharif MD Unavailable + Catherine Cm MD Unavailable + Sydnie Martinez RN Unavailable Unavailable Alfonso Renteria MD Unavailable [phone] Esha Grimm PA-C Primary Care Provider [phone] Cheng Todd PA-C Unavailable Radha Lomeli APRN SURG RN Unavailable Jelena David OD Unavailable Pao Joseph RN Unavailable Unavailable Esha Grimm PA-C Unavailable [phone] Valery Veronica PA-C Unavailable Rey Tay MD Unavailable Rocky Zepeda DO Unavailable Philip Dumont MD Unavailable Meredith Carrera PA-C Unavailable [phone] Neil Kent MD Unavailable Juan Pablo Emmanuel MD Unavailable Audrey Waite PA-C Unavailable Encounter Details Date Type Department Care Team (Late st Contact Info) Description 07/10/2020 MyC Medical Advice [facility] [place] [address] [place] [address] Mynor Broussard MD [address] [place], [place] [address] Social History Tobacco Use Types Packs/Day Years [...] COVID-19? No / Unsure 06/24/2020 3:01 PM [employer]IDGE CLUB MANAGER documented as of this encounter Plan of Treatment Upcoming Encounters Date Type Department Care Team (Late st Contact Info) Description 03/26/2024 11:20 AM CDT Office Visit [facility] Spine [facility] Neurosurgery [address] [facility] [address] [place] [address] Ebony Cid, CHECKER IN [facility] [address] [place], [place] [address] 03/27/2024 11:00 AM CDT Office Visit [facility] [address] [facility] [address] [place] [phone] Jelena David, [address] [place] [address] 04/19/2024 2:45 PM CDT Office Visit [facility] [address] [place] [phone] Audrey Waite PA-C [address] [facility] [address], [facility] [address] [place], [place] [address] 05/08/2024 1:30 PM CDT Office Visit [facility] [address] [place] [address] Lauren Claudio PA-C [address] [place] [address] Esha Grimm PA-C [address] [place] [address] 06/21/2024 2:00 PM BRIDGE CLUB MANAGER Office Visit [facility] Neurology [facility] [address] [facility], [address] [place] [address] [place] [address] [place] [address] Johnny Penn MD [address] [address] Scheduled Procedures Name Priority Associated Diagnoses Date/Ti mi ESOPHAGOGASTRODUODENOSCOPY Eosinophilic esophagitis Esophageal dysphagia documented as of this encounter Visit Diagnoses Not on filedocumented in this encounter Additional Health Concerns Infection Onset Date Last Indicated Resolved Time Rule Out COVID-19 07/30/2020 07/30/2020 07/30/2020 7:11 PM BRIDGE CLUB MANAGER Rule Out COVID-19 08/30/2020 08/30/2020 08/30/2020 5:05 PM BRIDGE CLUB MANAGER Rule Out COVID-19 09/24/2020 09/24/2020 09/24/2020 9:24 AM CDT Rule Out COVID-19 11/05/2020 11/05/2020 11/06/2020 1:09 PM CDT Rule Out COVID-19 05/11/2021 05/11/2021 05/13/2021 10:18 AM CDT Rule Out COVID-19 07/13/2021 07/13/2021 07/14/2021 3:04 PM BRIDGE CLUB MANAGER Rule Out COVID-19 07/18/2021 07/18/2021 07/20/2021 1:56 PM BRIDGE CLUB MANAGER COVID-19 07/18/2021 07/18/2021 08/08/2021 11:3 9 PM BRIDGE CLUB MANAGER Rule Out COVID-19 12/18/2021 12/18/2021 12/19/2021 11:34 AM CDT Rule Out COVID-19 02/24/2022 02/24/2022 02/25/2022 1:08 PM CDT Rule Out COVID-19 04/26/2022 04/26/2022 04/26/2022 6:47 AM CDT Rule Out COVID-19 05/17/2022 05/17/2022 05/17/2022 10:20 PM BRIDGE CLUB MANAGER Rule Out COVID-19 06/09/2022 06/09/2022 06/09/2022 9:35 AM BRIDGE CLUB MANAGER COVID-19 06/09/2022 06/09/2022 06/30/2022 11:4 1 PM BRIDGE CLUB MANAGER Rule Out COVID-19 11/10/2022 11/10/2022 11/11/2022 12:17 PM CDT Rule Out COVID-19 03/07/2023 03/07/2023 03/07/2023 1:20 PM CDT Rule Out COVID-19 12/26/2023 12/26/2023 12/26/2023 9:50 AM CDT Assessment Noted Time PHQ-9 Depression Total Score: 9 06/25/20 20 7:04 AM BRIDGE CLUB MANAGER documented as of this encounter Care Teams Head Of Commission Department Relationship Specialty Start Date End Date Marija dEgar APRN SURG RN PCP - General Nurse Practitioner 04/30/20 04/14/23 Esha Grimm PA-C [address] [place] [phone] PCP - General Family Medicine 05/04/23 Lita Oseguera Personal Advocate & Liaison (PAL) 02/28/20 03/27/23 Chanelle Mccann APRN CNM [address] 165717 Assigned OBGYN Provider 05/02/2005/09 Kyara De La Fuente, VJ Specialty Lead Sales Consultant Neurology 06/04/20 03/05/21 Marija Edgar APRN SURG RN Assigned PCP 06/08/20 04/29/23 Mynor Broussard MD [address] [place], [place] [address] Assigned Surgical Provider 06/01/20 11/28/21 Keisha Dotson MD [address] [place], [place] [address] Assigned Neuroscience Provider 06/04/20 04/01/23 Mary Mejia Financial Resource Worker 08/07/20 08/21/20 Stacey Briones, [facility] Lead Lead Sales Consultant Primary Care - CC 08/11/2012/30 Lesley Moody, [facility] Community Health Worker 08/11/2010/01 Mary Mejia Financial Resource Worker 09/02/20 10/06/20 Lita Oseguera Personal Advocate & Liaison (PAL) Family Medicine 09/10/20 09/21/20 Galo Burrell MD Assigned Heart and Vascular Provider 10/05/20 04/02/22 Cristina Wood Financial Resource Worker 10/07/20 10/14/20 Lesley Moody, [facility] Community Health Worker 10/23/2012/30 Meredith Bedoya Financial Resource Worker 10/23/20 11/23/20 Cristina Wood Financial Resource Worker 02/09/21 02/09/21 Diana Desir, [facility] [address] [place] [address] Pharmacist Pharmacist 04/17/21 Rain Galaviz PA-C [address] [place] [address] DR AR[address] [facility] [place] [address] Physician Hematology Oncology Consultant Dermatology 04/28/21 Summer Lara MD [address] [place] [address] Assigned OBGYN Provider 05/10/2105/23 Summer Lara MD [address] [place] [address] Assigned OBGYN Provider 05/31/21 Summer Lara MD [address] [facility] [place] [address] Assigned OBGYN Provider 05/24/2105/30 Tavia Wyatt MD [address] [facility] [place] [address] Dermatology 07/14/21 Johnny Murillo MD [facility] [address] [facility] [address] [place] [address] Assigned Musculoskeletal Provider 08/30/21 03/17/22 Erica Farrell APRN SURG RN [address] [facility] [address] [place] [address] Nurse Practitioner Cardiovascular Disease 09/09/21 Teresita Bean, [facility] [address] [place] [address] Pharmacist Pharmacist 09/24/21 09/29/21 Tavia Wyatt MD Assigned Surgical Provider 11/29/21 05/07/22 Diana Desir, [facility] [address] [place] [address] Assigned MTM Pharmacist 01/02/22 Rich Barrett MD [address] [address] Physician Ophthalmology 01/21/22 Neil Kent MD [address] [place], [place] [phone] Dermatology 02/24/22 [place] DPM [address] [facility] [address] [place], [place] [address] Assigned Musculoskeletal Provider 03/20/22 08/13/22 Erica Farrell APRN SURG RN [address] [place] [address] Assigned Heart and Vascular Provider 04/03/22 04/16/22 Diana Desir, [facility] [address] [place] [address] Assigned MTM Pharmacist 04/07/22 Jelena David OD [address] [place] [place] [address] Assigned Surgical Provider 05/08/22 10/08/22 Galo Burrell MD Assigned Heart and Vascular Provider 04/17/22 06/11/22 Livan Sharif MD [address] [facility] [place] , [facility] [address] [place] [address] Cardiovascular Disease 05/14/22 Livan Sharif MD [address] [place] [address] Assigned Heart and Vascular Provider 06/12/22 07/23/22 Catherine Cm MD [address] [place] [address] Cardiovascular Disease 07/21/22 Valery Veronica, PAUcheC [address] [place] [address] Physician Hematology Oncology Consultant Dermatology 07/21/22 Catherine Cm MD [address] [place] [address] Assigned Heart and Vascular Provider 07/24/22 11/05/22 Johnny Murillo MD [address] [place] [address] Assigned Musculoskeletal Provider 08/14/22 10/08/22 Brea Quinn APRN SURG RN [address] [place] [address] Nurse Practitioner Dermatology 09/21/22 [place] [address] [place] [address] [place] [id number] Assigned Surgical Provider 10/09/22 [place] [address] [place] [address] Assigned Musculoskeletal Provider 10/09/22 Livan Sharif MD [address] [place] [address] Assigned Heart and Vascular Provider 11/06/22 11/12/22 Catherine Cm MD [address] [facility] [address] [place] [address] Assigned Heart and Vascular Provider 11/13/22 05/27/23 Sydnie Martinez RN Personal Advocate & Liaison (PAL) Family Medicine 03/28/23 07/31/23 Alfonso Renteria MD [address] [facility] [address] [place] [address] Assigned Neuroscience Provider 04/02/23 Cheng Todd PA-C [address] [place] [address] Assigned PCP 04/30/23 07/15/23 Radha Lomeli APRN SURG RN [address] [place] [address] Assigned Heart and Vascular Provider 05/28/23 Jelena David OD [facility] [facility] [place] [address] Ophthalmology 06/15/23 Pao Joseph RN Personal Advocate & Liaison (PAL) Nurse 08/01/23 11/07/23 Esha Grimm PA-C [address] [place] [address] Assigned PCP 07/16/23 Valery Veronica PA-C [address] [place] [address] Physician Hematology Oncology Consultant Dermatology 09/19/23 Rey Tay MD [address] [place] [address] MD Gastroenterology 09/20/23 Rocky Zepeda DO [address] [place] [address] 438785 Physician Gastroenterology 09/20/23 Philip Dumont MD [address] [place] [address] Physician Ophthalmology 09/22/23 Meredith Carrera PA-C [address] [place] [address] Assigned Gastroenterology Provider 11/01/23 Neil Kent MD [address] [address] Dermatology 11/02/23 [place] [address] [place], [place] [address] Neurological Surgery 12/26/23 Adurey Waite PA-C [address] [place] [address] Physician Hematology Oncology Consultant Dermatology 02/28/24 documented as of this encounter
--- OUTSIDE RECORDS SUMMARY | 2024-03-12 19:44 | XMS_ITS | Encounter Summary ---
Author Organization [facility] Address [address] [place] [address] Care Team Providers Care Airport Baggage Screener Name Role Phone Lita Oseguera Unavailable Unavailable Marija Edgar APRN MACHINE SETTER SHEET METAL Primary Care Provider Chanelle Gutierrez APRN CNM Unavailab le Kyara De La Fuente RN Unavailable [phone] Marija Edgar APRN MACHINE SETTER SHEET METAL Unavailable Unavail able Mynor Broussard MD Unavailable [phone] Keisha Dotson MD Unavailable [phone] Mary Mejia Unavailable Unavailable Stacey Briones CIGAR MAKING SUPERVISOR Unavailable Lesley Moody CHW Unavailable Mary Mejia Unavailable Unavailable Lita Oseguera Unavailable Unavailable Galo Burrell MD Unavailable Unavailable Cristina Wood Unavailable Lesley Moody CHW Unavailable Meredith Bedoya Unavailable Unavailable Cristina Wood Unavailable Diana Desir [facility] Unavailable Rain Galaviz PA-C Unavailable Summer Lara MD Unavailable [phone] Summer Lara MD Unavailable [phone] Summer Lara MD Unavailable + [phone] Tavia Wyatt MD Unavailable Unavailable SemJohnny mckeon MD Unavailable +1- Erica Farrell ACTUARIAL MATHEMATICIAN MACHINE SETTER SHEET METAL Unavailable + BeanTeresita RPH Unavailable Tavia Wyatt MD Unavailable Unavailable Diana Desir H Unavailable [phone] Rich Barrett MD Unavailable [phone] Neil Kent MD Unavailable Roney Story DPM Unavailable [phone] Erica Farrell ACTUARIAL MATHEMATICIAN MACHINE SETTER SHEET METAL Unavailable + Diana Desir RPH Unavailable [phone] Jelena David OD Unavailable [phone] Galo Burrell MD Unavailable Unavailable Livan Sharif MD Unavailable + Livan Sharif MD Unavailable + Catherine Cm MD Unavailable + Valery Veronica PA-C Unavailable [phone] Catherine Cm MD Unavailable + Johnny Murillo MD Unavailable +1- Brea Quinn ACTUARIAL MATHEMATICIAN MACHINE SETTER SHEET METAL Unavailable [phone] Brea Quinn ACTUARIAL MATHEMATICIAN MACHINE SETTER SHEET METAL Unavailable [phone] Jose Francisco Johnson MD Unavailable Livan Sharif MD Unavailable + Catherine Cm MD Unavailable + Sydnie Martinez RN Unavailable Unavailable Alfonso Renteria MD Unavailable [phone] Esha GrimmC Primary Care Provider Cheng Todd PA-C Unavailable Radha Lomeli APRN MACHINE SETTER SHEET METAL Unavailable Jelena David OD Unavailable Pao Joseph RN Unavailable Unavailable Esha GrimmC Unavailable [phone] Valery Veronica PA-C Unavailable [phone] Rey Tay MD Unavailable Rocky Zepeda DO Unavailable Philip Dumont MD Unavailable Meredith Carrera-C Unavailable Neil Kent MD Unavailable Juan Pablo Emmanuel MD Unavailable [phone] Audrey Waite PA-C Unavailable Reason for Visit * Reason Comments Medication Refill Encounter Details Date Type Department Care Team (Late st Contact Info) Description 07/14/2020 [facility] [id number] [place] [phone] Rakesh Cid PA-C [address] [place] [address] Medication Refill Social History Tobacco [...] COVID-19? No / Unsure 06/24/2020 3:01 PM BAKERY SALES CLERK documented as of this encounter Miscellaneous Notes * Telephone Encounter - Estephania Black RN - 07/16/2020 11:38 AM BAKERY SALES CLERK Routing refill request to provider for review/approval because: Labs out of range: PHQ9> 4 patient was seen 3 weeks ago. Estephania Black RN Flex RY SALES CLERK * Telephone Encounter - Brea Perry RN - 07/16/2020 11:34 AM BAKERY SALES CLERK Routing to correct clinic. RY SALES CLERK documented in this encounter Plan of Treatment Upcoming Encounters Date Type Department Care Team (Late st Contact Info) Description 03/26/2024 11:20 AM CDT Office Visit [facility] [address] [facility] [address] [place] [address] Ebony Cid, ACTUARIAL MATHEMATICIAN [facility] [address] [place] [address] 03/27/2024 11:00 AM CDT Office Visit [facility] [address] [facility] [address] [place] [phone] Jelena David, SONJA [address] [facility] [place] [address] 04/19/2024 2:45 PM CDT Office Visit [facility] [address] [place] [phone] Audrey Waite PA-C [address], [facility] [address] [place], [place] [address] 05/08/2024 1:30 PM CDT Office Visit [facility] [address] [place] [address] Lauren Claudio PA-C [address] [place] [address] Esha Grimm PA-C [address] [place] [address] 06/21/2024 2:00 PM BAKERY SALES CLERK Office Visit [facility] Neurology [address], [address] [place] [address] [place] [address] [place] [address] Johnny Penn MD [address] [place], [place] [phone] Scheduled Procedures Name Priority Associated Diagnoses Date/Ti wv ESOPHAGOGASTRODUODENOSCOPY Eosinophilic esophagitis Esophageal dysphagia documented as of this encounter Visit Diagnoses Diagnosis Anxiety Anxiety state, unspecified documented in this encounter Additional Health Concerns Infection Onset Date Last Indicated Resolved Time Rule Out COVID-19 07/30/2020 07/30/2020 07/30/2020 7:11 PM BAKERY SALES CLERK Rule Out COVID-19 08/30/2020 08/30/2020 08/30/2020 5:05 PM BAKERY SALES CLERK Rule Out COVID-19 09/24/2020 09/24/2020 09/24/2020 9:24 AM CDT Rule Out COVID-19 11/05/2020 11/05/2020 11/06/2020 1:09 PM CDT Rule Out COVID-19 05/11/2021 05/11/2021 05/13/2021 10:18 AM CDT Rule Out COVID-19 07/13/2021 07/13/2021 07/14/2021 3:04 PM BAKERY SALES CLERK Rule Out COVID-19 07/18/2021 07/18/2021 07/20/2021 1:56 PM BAKERY SALES CLERK COVID-19 07/18/2021 07/18/2021 08/08/2021 11:3 9 PM BAKERY SALES CLERK Rule Out COVID-19 12/18/2021 12/18/2021 12/19/2021 11:34 AM CDT Rule Out COVID-19 02/24/2022 02/24/2022 02/25/2022 1:08 PM CDT Rule Out COVID-19 04/26/2022 04/26/2022 04/26/2022 6:47 AM CDT Rule Out COVID-19 05/17/2022 05/17/2022 05/17/2022 10:20 PM BAKERY SALES CLERK Rule Out COVID-19 06/09/2022 06/09/2022 06/09/2022 9:35 AM BAKERY SALES CLERK COVID-19 06/09/2022 06/09/2022 06/30/2022 11:4 1 PM BAKERY SALES CLERK Rule Out COVID-19 11/10/2022 11/10/2022 11/11/2022 12:17 PM CDT Rule Out COVID-19 03/07/2023 03/07/2023 03/07/2023 1:20 PM CDT Rule Out COVID-19 12/26/2023 12/26/2023 12/26/2023 9:50 AM CDT Assessment Noted Time PHQ-9 Depression Total Score: 9 06/25/20 20 7:04 AM BAKERY SALES CLERK documented as of this encounter Care Teams Airport Baggage Screener Relationship Specialty Start Date End Date Marija Edgar APRN MACHINE SETTER SHEET METAL PCP - General Nurse Practitioner 04/30/20 04/14/23 Esha Grimm PA-C [address] [place] [phone] PCP - General Family Medicine 05/04/23 Lita Oseguera Personal Advocate & Liaison (PAL) 02/28/20 03/27/23 Chanelle Mccann APRN CNAdam [address] [place], [address] [place] [address] Assigned OBGYN Provider 05/02/2005/09 Kyara De La Fuente, RN Specialty Crucible Furnace Tender Neurology 06/04/20 03/05/21 Marija Edgar APRN MACHINE SETTER SHEET METAL Assigned PCP 06/08/20 04/29/23 Mynor Broussard MD [address] [facility] [address] [place] [address] Assigned Surgical Provider 06/01/20 11/28/21 Keisha Dotson MD [address] [place], [place] [address] Assigned Neuroscience Provider 06/04/20 04/01/23 Mary Mejia Financial Resource Worker 08/07/20 08/21/20 Stacey Briones, [facility] Lead Crucible Furnace Tender Primary Care - CC 08/11/2012/30 Lesley Moody, [facility] Community Health Worker 08/11/2010/01 Mary Mejia Financial Resource Worker 09/02/20 10/06/20 Lita Oseguera Personal Advocate & Liaison (PAL) Family Medicine 09/10/20 09/21/20 Galo Burrell MD Assigned Heart and Vascular Provider 10/05/20 04/02/22 Cristina Wood Financial Resource Worker 10/07/20 10/14/20 Lesley Moody, [facility] Community Health Worker 10/23/2012/30 Meredith Bedoya Financial Resource Worker 10/23/20 11/23/20 Cristina Wood Financial Resource Worker 02/09/21 02/09/21 Diana Desir, [facility] [address] [place] [address] Pharmacist Pharmacist 04/17/21 Rain Galaviz PA-C [address] [place] [address] [address] [place], [place] [phone] Physician Type Rolling Machine Operator Dermatology 04/28/21 Summer Lara MD [address] [place] [address] Assigned OBGYN Provider 05/10/2105/23 Summer Lara MD [address] [facility] [place], [place] [address] Assigned OBGYN Provider 05/31/21 2 Summer Lara MD [address] [place] [address] Assigned OBGYN Provider 05/24/2105/30 Tavia Wyatt MD [address] [place] [address] Dermatology 07/14/21 Johnny Murillo MD [address] [facility] [address] [place] [address] Assigned Musculoskeletal Provider 08/30/21 03/17/22 Erica Farrell APRN MACHINE SETTER SHEET METAL [address] [facility] [address] [place] [address] Nurse Practitioner Cardiovascular Disease 09/09/21 Teresita Bean, [facility] [address] [place] [phone] Pharmacist Pharmacist 09/24/21 09/29/21 Tavia Wyatt MD Assigned Surgical Provider 11/29/21 05/07/22 [facility] [address] [place] [address] Assigned MTM Pharmacist 01/02/22 Rich Barrett MD [address] [id number] Physician Ophthalmology 01/21/22 Neil Kent MD [address] [place], [place] [phone] Dermatology 02/24/22 Roney Story DPM [address] [facility] [address] [place] [address] Assigned Musculoskeletal Provider 03/20/22 08/13/22 Erica Farrell APRN MACHINE SETTER SHEET METAL [address] [place] [address] Assigned Heart and Vascular Provider 04/03/22 04/16/22 Diana Desir, [facility] [address] [place], [place] [address] Assigned MTM Pharmacist 04/07/22 Jelena David OD [address] [facility] [place] [address] Assigned Surgical Provider 05/08/22 10/08/22 Galo Burrell MD Assigned Heart and Vascular Provider 04/17/22 06/11/22 Livan Sharif MD [address] [place] [id number] Cardiovascular Disease 05/14/22 Livan Sharif MD [address] [place] [address] Assigned Heart and Vascular Provider 06/12/22 07/23/22 Catherine Cm MD [address] [place] [id number] Cardiovascular Disease 07/21/22 Valery Veronica, PA-C [address] [place] [address] Physician Type Rolling Machine Operator Dermatology 07/21/22 Catherine Cm MD [address] [place] [id number] Assigned Heart and Vascular Provider 07/24/22 11/05/22 Johnny Murillo MD [address] [place] [address] Assigned Musculoskeletal Provider 08/14/22 10/08/22 Brea Quinn APRN MACHINE SETTER SHEET METAL [address] [place] [address] Nurse Practitioner Dermatology 09/21/22 Brea Quinn APRN MACHINE SETTER SHEET METAL [facility] [place] [address] Assigned Surgical Provider 10/09/22 [place] [address] [facility] [address] [place] [address] Assigned Musculoskeletal Provider 10/09/22 Livan Sharif MD [address] [facility] [address] [place] [address] Assigned Heart and Vascular Provider 11/06/22 11/12/22 Catherine Cm MD [address] [facility] [address] [place] [address] Assigned Heart and Vascular Provider 11/13/22 05/27/23 Sydnie Martinez RN Personal Advocate & Liaison (PAL) Family Medicine 03/28/23 07/31/23 Alfonso Renteria MD [address] [facility] [address] [place], [place] [address] Assigned Neuroscience Provider 04/02/23 Cheng Todd PA-C [address] [place] [address] [phone] Assigned PCP 04/30/23 07/15/23 Radha Lomeli APRN MACHINE SETTER SHEET METAL [address] [facility] [address] [place] [address] Assigned Heart and Vascular Provider 05/28/23 Jelena David OD [address] [facility] [place] [address] MD Ophthalmology 06/15/23 Pao Joseph, VJ Personal Advocate & Liaison (PAL) Nurse 08/01/23 11/07/23 Esha Grimm PA-C [address] [place] [phone] Assigned PCP 07/16/23 Valery Veronica PA-C [address] [place] [address] Physician Type Rolling Machine Operator Dermatology 09/19/23 Rey Tay MD [address] [place] [address] [phone] MD Gastroenterology 09/20/23 Rocky Zepeda DO [address] [place] [address] [phone] Physician Gastroenterology 09/20/23 Philip Dumont MD [address] [place] [address] 409205 Physician Ophthalmology 09/22/23 Meredith Carrera PA-C [address] [place] [address] 047115 Assigned Gastroenterology Provider 11/01/23 Neil Kent MD [address] [address] Dermatology 11/02/23 [place] [address] [place] [address] Neurological Surgery 12/26/23 Audrey Waite PAUcheC [address] [place], [place] [address] Physician Type Rolling Machine Operator Dermatology 02/28/24 documented as of this encounter
--- OUTSIDE RECORDS SUMMARY | 2024-03-12 19:44 | XMS_ITS | Encounter Summary ---
Author Organization [facility] Address [address] [place] [address] Care Team Providers Care Risk Control Director Name Role Phone Lita Oseguera Unavailable Unavailable Rakesh Cid PA-C Unavailable + [phone] Marija Edgar MEAT COOLER DIGITAL MEDIA PLANNER Primary Care Provider Chanelle Gutierrez MEAT COOLER CNM Unavailab le Lesley Moody CHW Unavailable Kyara De La Fuente RN Unavailable [phone] Marija Edgar APRN DIGITAL MEDIA PLANNER Unavailable Unavail able Mynor Broussard MD Unavailable [phone] Keisha Dotson MD Unavailable [phone] Mary Mejia Unavailable Unavailable Stacey Briones COGENERATION TECHNICIAN Unavailable [phone] Lesley Moody CHW Unavailable [phone] Mary Mejia Unavailable Unavailable Lita Oseguera Unavailable Unavailable Galo Burrell MD Unavailable Unavailable Cristina Wood Unavailable Lesley Moody CHW Unavailable [phone] Meredith Bedoya Unavailable Unavailable Cristina Wood Unavailable Diana Desir RPH Unavailable [phone] AnastaciaKailaRainsuki Paredes PA-C Unavailable [phone] Summer Lara MD Unavailable [phone] Summer Lara MD Unavailable [phone] Summer Lara MD Unavailable +[phone] Tavia Wyatt MD Unavailable Unavailable Johnny Murillo MD Unavailable +[phone]- Erica Farrell MEAT COOLER DIGITAL MEDIA PLANNER Unavailable + VikasTeresita [facility] Unavailable Tavia Wyatt MD Unavailable Unavailable Diana Desir [facility] Unavailable [phone] Rich Barrett MD Unavailable [phone] Neil Kent MD Unavailable Roney Story DPM Unavailable [phone] Erica Farrell MEAT COOLER DIGITAL MEDIA PLANNER Unavailable Diana Desir [facility] Unavailable [phone] Jelena David OD Unavailable Galo Burrell MD Unavailable Unavailable Livan Sharif MD Unavailable + Livan Sharif MD Unavailable + Catherine Cm MD Unavailable + Valery Veronica PA-C Unavailable [phone] Catherine Cm MD Unavailable + Johnny Murillo MD Unavailable +[phone]- Brea Quinn MEAT COOLER DIGITAL MEDIA PLANNER Unavailable [phone] Brea Quinn MEAT COOLER DIGITAL MEDIA PLANNER Unavailable [phone] Jose Francisco Johnson MD Unavailable Livan Sharif MD Unavailable Catherine Cm MD Unavailable + Sydnie Martinez RN Unavailable Unavailable Alfonso Renteria MD Unavailable [phone] Esha Grimm PA-C Primary Care Provider [phone] Cheng Todd PA-C Unavailable Radha Lomeli APRN DIGITAL MEDIA PLANNER Unavailable [phone] FrankieJelena OD Unavailable Pao Joseph RN Unavailable Unavailable Esha Grimm PA-C Unavailable [phone] Valery Veronica PA-C Unavailable Rey Tay MD Unavailable Rocky Zepeda DO Unavailable Philip Dumont MD Unavailable [phone] Meredith Carrera PA-C Unavailable Neil Kent MD Unavailable Juan Pablo Emmanuel MD Unavailable Audrey Waite PA-C Unavailable [phone] Encounter Details Date Type Department Care Team (Late st Contact Info) Description 05/23/2020 MyC Medical Advice [address] [address] Marija Edgar APRN DIGITAL MEDIA PLANNER Social History Tobacco Use Types Packs/Day Years [...] COVID-19? No / Unsure 05/12/2020 9:03 AM MEDICAL SUPERINTENDENT documented as of this encounter Plan of Treatment Upcoming Encounters Date Type Department Care Team (Late st Contact Info) Description 03/26/2024 11:20 AM CDT Office Visit [facility] Spine and Neurosurgery [address] [facility] [address] [place] [address] Ebony Cid, MEAT COOLER DIGITAL MEDIA PLANNER [address] [place], [place] [address] 03/27/2024 11:00 AM CDT Office Visit [facility] [address] [facility] [address] [place] [phone] Jelena David, [place] [address] [place] [address] 04/19/2024 2:45 PM CDT Office Visit [facility] [address] [place] [phone] Audrey Waite PA-C [address] [facility] [address], [facility] [address] [place], [place] [address] 05/08/2024 1:30 PM CDT Office Visit [facility] [address] [place] [address] Lauren Claudio PA-C [address] [place], [place] [phone] Esha Grimm PA-C [address] [place] [address] 06/21/2024 2:00 PM MEDICAL SUPERINTENDENT Office Visit [facility] Neurology [facility] [address] [facility], [address] [place] [address] [place] [address] [place] [address] Johnny Penn MD [address] [place] [address] Scheduled Procedures Name Priority Associated Diagnoses Date/Ti md ESOPHAGOGASTRODUODENOSCOPY Eosinophilic esophagitis Esophageal dysphagia documented as of this encounter Visit Diagnoses Not on filedocumented in this encounter Additional Health Concerns Infection Onset Date Last Indicated Resolved Time Rule Out COVID-19 07/30/2020 07/30/2020 07/30/2020 7:11 PM MEDICAL SUPERINTENDENT Rule Out COVID-19 08/30/2020 08/30/2020 08/30/2020 5:05 PM MEDICAL SUPERINTENDENT Rule Out COVID-19 09/24/2020 09/24/2020 09/24/2020 9:24 AM CDT Rule Out COVID-19 11/05/2020 11/05/2020 11/06/2020 1:09 PM CDT Rule Out COVID-19 05/11/2021 05/11/2021 05/13/2021 10:18 AM CDT Rule Out COVID-19 07/13/2021 07/13/2021 07/14/2021 3:04 PM MEDICAL SUPERINTENDENT Rule Out COVID-19 07/18/2021 07/18/2021 07/20/2021 1:56 PM MEDICAL SUPERINTENDENT COVID-19 07/18/2021 07/18/2021 08/08/2021 11:3 9 PM MEDICAL SUPERINTENDENT Rule Out COVID-19 12/18/2021 12/18/2021 12/19/2021 11:34 AM CDT Rule Out COVID-19 02/24/2022 02/24/2022 02/25/2022 1:08 PM CDT Rule Out COVID-19 04/26/2022 04/26/2022 04/26/2022 6:47 AM CDT Rule Out COVID-19 05/17/2022 05/17/2022 05/17/2022 10:20 PM MEDICAL SUPERINTENDENT Rule Out COVID-19 06/09/2022 06/09/2022 06/09/2022 9:35 AM MEDICAL SUPERINTENDENT COVID-19 06/09/2022 06/09/2022 06/30/2022 11:4 1 PM MEDICAL SUPERINTENDENT Rule Out COVID-19 11/10/2022 11/10/2022 11/11/2022 12:17 PM CDT Rule Out COVID-19 03/07/2023 03/07/2023 03/07/2023 1:20 PM CDT Rule Out COVID-19 12/26/2023 12/26/2023 12/26/2023 9:50 AM CDT Assessment Noted Time PHQ-9 Depression Total Score: 6 08/28/19 21 7:05 AM MEDICAL SUPERINTENDENT documented as of this encounter Care Teams Risk Control Director Relationship Specialty Start Date End Date Marija Edgar APRN DIGITAL MEDIA PLANNER [address] [place] [address] PCP - General Nurse Practitioner 04/30/20 04/14/23 Esha Grimm PA-C [address] [place] [phone] PCP - General Family Medicine 05/04/23 Lita Oseguera Personal Advocate & Liaison (PAL) 02/28/20 03/27/23 Rakesh Cid PA-C [address] [place] [address] Assigned PCP 03/02/20 06/07/20 Chanelle Mccann APRN CNM [address] [address] Assigned OBGYN Provider 05/02/2005/09 Lesley Moody, CHW Community Health Worker 05/30/2005/12 Kyara De La Fuente, RN Specialty Galvanometer Assembler Neurology 06/04/20 03/05/21 Marija Edgar APRN DIGITAL MEDIA PLANNER [address] [place] [address] Assigned PCP 06/08/20 04/29/23 Mynor Broussard MD [address] [place], [place] [address] Assigned Surgical Provider 06/01/20 11/28/21 Keisha Dotson MD [address] [place] [address] Assigned Neuroscience Provider 06/04/20 04/01/23 Mary Mejia Financial Resource Worker 08/07/20 08/21/20 Stacey Briones, [facility] Lead Galvanometer Assembler Primary Care - CC 08/11/2012/30 Lesley [...] 02/09/21 Diana Desir, [facility] [address] [place] [address] Pharmacist Pharmacist 04/17/21 Rain Galaviz PA-C [address] [place] [address] [place] [address] Physician Novelty Twister Operator Dermatology 04/28/21 Summer Lara MD [address] [place] [address] Assigned OBGYN Provider 05/10/2105/23 Summer Lara MD [address] [place] [address] Assigned OBGYN Provider 05/31/21 2 Summer Lara MD [address] [place] [address] Assigned OBGYN Provider 05/24/2105/30 Tavia Wyatt MD [address] [place] [address] Dermatology 07/14/21 Johnny Murillo MD [address] [facility] [address] [place] [address] Assigned Musculoskeletal Provider 08/30/21 03/17/22 Erica Farrell APRN DIGITAL MEDIA PLANNER [address] [facility] [address] [place] [address] Nurse Practitioner Cardiovascular Disease 09/09/21 Teresita Bean, [facility] [address] [place] [address] Pharmacist Pharmacist 09/24/21 09/29/21 Tavia Wyatt MD Assigned Surgical Provider 11/29/21 05/07/22 [facility] [address] [place] [address] Assigned MTM Pharmacist 01/02/22 Rich Barrett MD [address] [address] Physician Ophthalmology 01/21/22 Neil Kent MD [address] [place], [place] [address] Dermatology 02/24/22 Roney Story DPM [address] [facility] [address] [place], [place] [address] Assigned Musculoskeletal Provider 03/20/22 08/13/22 Erica Farrell APRN DIGITAL MEDIA PLANNER [address] [place] [address] Assigned Heart and Vascular Provider 04/03/22 04/16/22 Diana Desir, [facility] [address] [place] [address] Assigned MTM Pharmacist 04/07/22 Jelena David OD [address] [facility] [place] [address] Assigned Surgical Provider 05/08/22 10/08/22 Galo Burrell MD Assigned Heart and Vascular Provider 04/17/22 06/11/22 Livan Sharif MD [address] [place] [address] Cardiovascular Disease 05/14/22 Livan Sharif MD [address] [place] [address] Assigned Heart and Vascular Provider 06/12/22 07/23/22 Catherine Cm MD [address] [facility] [address] [place], [place] [address] Cardiovascular Disease 07/21/22 Valery Veronica, PA-C [address] [place], [place] [address] Physician Novelty Twister Operator Dermatology 07/21/22 Catherine Cm MD [address] [place] [address] Assigned Heart and Vascular Provider 07/24/22 11/05/22 Johnny Murillo MD [address] [address] Assigned Musculoskeletal Provider 08/14/22 10/08/22 Brea Quinn APRN DIGITAL MEDIA PLANNER [address] [place] [address] Nurse Practitioner Dermatology 09/21/22 Brea Quinn APRN DIGITAL MEDIA PLANNER [address] [facility] [place] [facility] [place] [address] Assigned Surgical Provider 10/09/22 [place] [address] [facility] [address] [place] [address] Assigned Musculoskeletal Provider 10/09/22 Livan Sharif MD [address], [facility] [address] [place] [address] Assigned Heart and Vascular Provider 11/06/22 11/12/22 Catherine Cm MD [address] [facility] [address] [place] [address] Assigned Heart and Vascular Provider 11/13/22 05/27/23 Sydnie Martinez, VJ Personal Advocate & Liaison (PAL) Family Medicine 03/28/23 07/31/23 Alfonso Renteria MD [address] [facility] [address] [place] [address] Assigned Neuroscience Provider 04/02/23 Cheng Todd PA-C [address] [place] [address] Assigned PCP 04/30/23 07/15/23 Radha Lomeli APRN DIGITAL MEDIA PLANNER [address] [place] [address] Assigned Heart and Vascular Provider 05/28/23 Jelena David OD [address] [facility] [place] [address] MD Ophthalmology 06/15/23 Pao Joseph, RN Personal Advocate & Liaison (PAL) Nurse 08/01/23 11/07/23 Esha Grimm PA-C [address] [place] [address] Assigned PCP 07/16/23 Valery Veronica PA-C [address] [place] [address] Physician Novelty Twister Operator Dermatology 09/19/23 Rey Tay MD [address] [place] [address] Gastroenterology 09/20/23 Rocky Zepeda DO [address] [place] [address] 128585 Physician Gastroenterology 09/20/23 Philip Dumont MD [address] [place] [address] Physician Ophthalmology 09/22/23 Meredith Carrera PA-C [address] [place] [address]3815 Assigned Gastroenterology Provider 11/01/23 Neil Kent MD [address] [phone] Dermatology 11/02/23 [place] [address] 6[address]47 Neurological Surgery 12/26/23 Audrey Waite PA-C 500 [place] [address] Physician Novelty Twister Operator Dermatology 02/28/24 documented as of this encounter
--- OUTSIDE RECORDS SUMMARY | 2024-03-12 19:45 | XMS_ITS | Encounter Summary ---
Author Organization [facility] Address [address] [place] [address] Care Team Providers Care Tax Accounting Manager Name Role Phone Rakesh Cid PA-C Primary Care Provider Lita Oseguera Unavailable Unavailable Rakesh Cid PA-C Unavailable [phone] Lita Oseguera Unavailable Unavailable Marija Edgar APRN RESPOOLER Primary Care Provider Chanelle Gutierrez [employer] CNM Unavailab le Lesley Moody CHW Unavailable Kyara De La Fuente RN Unavailable [phone] Marija Edgar APRN RESPOOLER Unavailable Unavail able Mynor Broussard MD Unavailable [phone] Keisha Dotson MD Unavailable Mary Mejia Unavailable Unavailable Stacey Briones MIXER OPERATOR HOT METAL Unavailable Lesley Moody CHW Unavailable Mary Mejia Unavailable Unavailable Lita Oseguera Unavailable Unavailable Galo Burrell MD Unavailable Unavailable Cristina Wood Unavailable Lesley Moody CHW Unavailable [phone] Meredith Bedoya Unavailable Unavailable Cristina Wood Unavailable DesirDiana [facility] Unavailable [phone] Rain Galaviz-C Unavailable [phone] Summer Lara MD Unavailable [phone] Summer Lara MD Unavailable [phone] Summer Lara MD Unavailable [phone] Tavia Wyatt MD Unavailable Unavailable Johnny Murillo MD Unavailable [phone] Erica Farrell APRN RESPOOLER Unavailable + Teresita Bean [facility] Unavailable Tavia Wyatt MD Unavailable Unavailable Diana Desir [facility] Unavailable [phone] Rich Barrett MD Unavailable [phone] Neil Kent MD Unavailable Roney Story DPM Unavailable Erica Farrell APRN RESPOOLER Unavailable + Diana Desir [facility] Unavailable [phone] Jelena David OD Unavailable [phone] Galo Burrell MD Unavailable Unavailable Livan Sharif MD Unavailable + Livan Sharif MD Unavailable + Catherine Cm MD Unavailable + Valery Veronica-C Unavailable [phone] Catherine Cm MD Unavailable + Johnny Murillo MD Unavailable [phone] Brea Quinn APRN RESPOOLER Unavailable [phone] [place], Brea P [employer] RESPOOLER Unavailable [phone] Jose Francisco Johnson MD Unavailable Livan Sharif MD Unavailable Catherine Cm MD Unavailable + Sydnie Martinez RN Unavailable Unavailable Alfonso Renteria MD Unavailable [phone] Esha Grimm PA-C Primary Care Provider Cheng Todd PA-C Unavailable Armani Radha Sia [employer] RESPOOLER Unavailable Jelena David OD Unavailable Pao Joseph RN Unavailable Unavailable Esha Grimm PA-C Unavailable [phone] Valery Veronica PA-C Unavailable [phone] Rey Tay MD Unavailable Rocky Zepeda DO Unavailable Philip Dumont MD Unavailable [phone] Meredith Carrera PA-C Unavailable [phone] Neil Kent MD Unavailable Juan Pablo Emmanuel MD Unavailable Audrey Waite PA-C Unavailable Encounter Details Date Type Department Care Team (Late st Contact Info) Description 04/25/2020 [facility] Medical Advice [address] [address] Rakesh Cid PA-C [address] [place] [address] Social History Tobacco Use Types [...] [facility] [address] [facility] [address] [place] [address] Ebony Cid, [employer] CONTR[employer] WARN[employer] [facility] [address] [place], [place] [address] 03/27/2024 11:00 AM CDT Office Visit [facility] [address] [facility] [address] [place] [phone] Jelena David, [address] [facility] [place] [address] 04/19/2024 2:45 PM CDT Office Visit [facility] [address] [place] [address] Audrey Waite PA-C [address] [place] [address] B385, [facility] 603 [place] [address] 05/08/2024 1:30 PM CDT Office Visit [facility] [address] [place] [phone] Lauren Claudio PA-C [address] [facility], [place] [phone] Esha Grimm PA-C [address] [place] [address] 06/21/2024 2:00 PM FINANCIAL OPERATIONS CONSULTANT Office Visit [facility] Neurology [facility] [address] [place] [address], [address] [place] [address] [place] [address] [place] [address] Johnny Penn MD [address] [facility] [place] [address] Scheduled Procedures Name Priority Associated Diagnoses Date/Ti va ESOPHAGOGASTRODUODENOSCOPY Eosinophilic esophagitis Esophageal dysphagia documented as of this encounter Visit Diagnoses Not on filedocumented in this encounter Additional Health Concerns Infection Onset Date Last Indicated Resolved Time Rule Out COVID-19 07/30/2020 07/30/2020 07/30/2020 7:11 PM FINANCIAL OPERATIONS CONSULTANT Rule Out COVID-19 08/30/2020 08/30/2020 08/30/2020 5:05 PM FINANCIAL OPERATIONS CONSULTANT Rule Out COVID-19 09/24/2020 09/24/2020 09/24/2020 9:24 AM CDT Rule Out COVID-19 11/05/2020 11/05/2020 11/06/2020 1:09 PM CDT Rule Out COVID-19 05/11/2021 05/11/2021 05/13/2021 10:18 AM CDT Rule Out COVID-19 07/13/2021 07/13/2021 07/14/2021 3:04 PM FINANCIAL OPERATIONS CONSULTANT Rule Out COVID-19 07/18/2021 07/18/2021 07/20/2021 1:56 PM FINANCIAL OPERATIONS CONSULTANT COVID-19 07/18/2021 07/18/202108/0808/08/2021 11:3 9 PM FINANCIAL OPERATIONS CONSULTANT Rule Out COVID-19 12/18/2021 12/18/2021 12/19/2021 11:34 AM CDT Rule Out COVID-19 02/24/2022 02/24/2022 02/25/2022 1:08 PM CDT Rule Out COVID-19 04/26/2022 04/26/2022 04/26/2022 6:47 AM CDT Rule Out COVID-19 05/17/2022 05/17/2022 05/17/2022 10:20 PM FINANCIAL OPERATIONS CONSULTANT Rule Out COVID-19 06/09/2022 06/09/2022 06/09/2022 9:35 AM FINANCIAL OPERATIONS CONSULTANT COVID-19 06/09/2022 06/09/2022 06/30/2022 11:4 1 PM FINANCIAL OPERATIONS CONSULTANT Rule Out COVID-19 11/10/2022 11/10/2022 11/11/2022 12:17 PM CDT Rule Out COVID-19 03/07/2023 03/07/2023 03/07/2023 1:20 PM CDT Rule Out COVID-19 12/26/2023 12/26/2023 12/26/2023 9:50 AM CDT Assessment Noted Time PHQ-9 Depression Total Score: 12 020 2:40 PM CDT documented as of this encounter Care Teams Tax Accounting Manager Relationship Specialty Start Date End Date Rakesh Cid PA-C PCP - General Physician Quality Assurance Engineer - Medical 05/14/19 04/29/20 Marija Edgar APRN CNP [address] [facility] [place] [address] PCP - General Nurse Practitioner 04/30/20 04/14/23 Esha Grimm PA-C [address] [place] [address] PCP - General Family Medicine 05/04/23 Lita Oseguera Personal Advocate & Liaison (PAL) 02/28/20 03/27/23 Rakesh Cid PA-C [address] [place] [address] Assigned PCP 03/02/20 06/07/20 Lita Oseguera Personal Advocate & Liaison (PAL) 04/07/20 04/29/20 Chanelle Mccann APRN CNM [address] [address] [address] [place] [address] Assigned OBGYN Provider 05/02/2005/09 Lesley Moody, CHW Community Health Worker 05/30/2005/12 Kyara De La Fuente, RN Specialty Powder Loader Neurology 06/04/20 03/05/21 Marija Edgar APRN RESPOOLER [address] [facility] [address] Assigned PCP 06/08/20 04/29/23 Mnyor Broussard MD [address] [facility] 500 [place] [address] Assigned Surgical Provider 06/01/20 11/28/21 Keisha Dotson MD 909 [place] [address] Assigned Neuroscience Provider 06/04/20 04/01/23 Mary Mejia Financial Resource Worker 08/07/20 08/21/20 Stacey Briones, [facility] Lead Powder Loader Primary Care - CC 08/11/2012/30 Lesley Moody, CHW Community Health Worker 08/11/2010/01 Nikiatimothy Mary Financial Resource Worker 09/02/20 10/06/20 Lita Oseguera Personal Advocate & Liaison (PAL) Family Medicine 09/10/20 09/21/20 Galo Burrell MD Assigned Heart and Vascular Provider 10/05/20 04/02/22 Cristina Wood Financial Resource Worker 10/07/20 10/14/20 Lesley Moody, [facility] Community Health Worker 10/23/2012/30 Meredith Bedoya Financial Resource Worker 10/23/20 11/23/20 Cristina Wood Financial Resource Worker 02/09/21 02/09/21 Diana Desir, [facility] [address] [place], [place] [address] Pharmacist Pharmacist 04/17/21 Rain Galaviz PA-C [address] [place] [address] [address] [place], [place] [phone] Physician Quality Assurance Engineer Dermatology 04/28/21 Summer Lara MD [address] [place] [address] [phone] Assigned OBGYN Provider 05/10/2105/23 Summer Lara MD [address] [place] [address] [phone] Assigned OBGYN Provider 05/31/21 2 Summer Lara MD [address] [place] [id number] Assigned OBGYN Provider 05/24/2105/30 Tavia Wyatt MD [address] [place] [address] Dermatology 07/14/21 Johnny Murillo MD [address] [place] [address] Assigned Musculoskeletal Provider 08/30/21 03/17/22 Erica Farrell APRN RESPOOLER [address] [place] [address] Nurse Practitioner Cardiovascular Disease 09/09/21 Teresita Bean, [facility] [address] [place], [place] [phone] Pharmacist Pharmacist 09/24/21 09/29/21 Tavia Wyatt MD Assigned Surgical Provider 11/29/21 05/07/[address] [facility] [address] [place] [address] Assigned MTM Pharmacist 01/02/22 Rich Barrett MD [address] [facility] [address] [place], [place] [address] Physician Ophthalmology 01/21/22 Neil Kent MD [address] [place], [place] 6[address] Dermatology 02/24/22 R[address]PM [address] [facility] [address] [place], [place] 858[address] Assigned Musculoskeletal Provider 03/20/22 08/13/22 Erica Farrell APRN RESPOOLER [address] [place] [address] Assigned Heart and Vascular Provider 04/03/22 04/16/[address] [facility] [address] [place] [address] Assigned MTM Pharmacist 04/07/22 Jelena David OD [address] [facility] [place] [address] Assigned Surgical Provider 05/08/22 10/08/22 Galo Burrell MD Assigned Heart and Vascular Provider 04/17/22 06/11/22 Livan Sharif MD [address] [place] [address] Cardiovascular Disease 05/14/22 Livan Sharif MD [address] [place] [address] Assigned Heart and Vascular Provider 06/12/22 07/23/22 Catherine Cm MD [address] [place] [address]395 Cardiovascular Disease 07/21/22 Valery Veronica PAUcheC [address] [place] [address] Physician Quality Assurance Engineer Dermatology 07/21/22 Catherine Cm MD [address] [place] [address] [place] [address] Assigned Heart and Vascular Provider 07/24/22 11/05/22 Johnny Murillo MD [facility] [place] [address] [address] Assigned Musculoskeletal Provider 08/14/22 10/08/22 Brea Quinn APRN RESPOOLER [address] [place] [address] [phone] Nurse Practitioner Dermatology 09/21/22 Brea Quinn APRN RESPOOLER [address] [place] [address] [facility] [place] [id number] Assigned Surgical Provider 10/09/22 [place] [address] [place] [address] 219077 Assigned Musculoskeletal Provider 10/09/22 Livan Sharif MD [address] [place] [address] [place] [phone] Assigned Heart and Vascular Provider 11/06/22 11/12/22 Catherine Cm MD [address] [place] [address] [place] [phone] Assigned Heart and Vascular Provider 11/13/22 05/27/23 Sydnie Martinez RN Personal Advocate & Liaison (PAL) Family Medicine 03/28/23 07/31/23 Alfonso Renteria MD [address] [facility] [address] [place] [address] Assigned Neuroscience Provider 04/02/23 Cheng Todd PA-C [address] [place] [address] Assigned PCP 04/30/23 07/15/23 Radha Lomeli APRN RESPOOLER [address] [facility] [address] [place], [place] 20[address] Assigned Heart and Vascular Provider 05/28/23 Jelena David OD [address] [facility] [place] [address] Ophthalmology 06/15/23 Pao Joseph, VJ Personal Advocate & Liaison (PAL) Nurse 08/01/23 11/07/23 Esha Grimm PA-C [address] [place] [phone] Assigned PCP 07/16/23 Valery Veronica PA-C [address] [place] [address] 874415 Physician Quality Assurance Engineer Dermatology 09/19/23 Rey Tay MD [address] [place] [address] 317185 Gastroenterology 09/20/23 Rocky Zepeda DO [address] [place] [address] 755315 Physician Gastroenterology 09/20/23 Philip Dumont MD [address] [place] [address] Physician Ophthalmology 09/22/23 Meredith Carrera PA-C [address] [place] [address] 884515 Assigned Gastroenterology Provider 11/01/23 Neil Kent MD [address] [phone] Dermatology 11/02/23 [place] [address] [place], [place] 352377 Neurological Surgery 12/26/23 Audrey Waite PA-C [address] [place] [address] 447055 Physician Quality Assurance Engineer Dermatology 02/28/24 documented as of this encounter
--- OUTSIDE RECORDS SUMMARY | 2024-03-12 19:45 | XMS_ITS | Encounter Summary ---
Author Organization [facility] Address [address] [place] [address] Care Team Providers Care Coil Wrapper Name Role Phone Rakesh Cid PA-C Unavailable + Rakesh Cid PA-C Primary Care Provider Lita Oseguera Unavailable Unavailable Rakesh Cid PA-C Unavailable + Isaura Lamar RN Unavailable Unavailable Lita Oseguera Unavailable Unavailable Marija Edgar APRN FINE ARTS TEACHER Primary Care Provider Chanelle Gutierrez APRN CNM Unavailab le Lesley Moody CHW Unavailable [phone] Kyara De La Fuente RN Unavailable [phone] Marija Edgar APRN FINE ARTS TEACHER Unavailable Unavail able Mynor Broussard MD Unavailable [phone] Keisha Dotson MD Unavailable [phone] Mary Mejia Unavailable Unavailable Stacey Briones FREIGHT HUSTLER Unavailable [phone] Lesley Moody CHW Unavailable [phone] Mary Mejia Unavailable Unavailable Lita Oseguera Unavailable Unavailable Galo Burrell MD Unavailable Unavailable Cristina Wood Unavailable Lesley Moody [facility] Unavailable Meredith Bedoya Unavailable Unavailable Cristina Wood Unavailable Diana Desir [facility] Unavailable [phone] Rain Galaviz PA-C Unavailable Summer Lara MD Unavailable +[phone] Summer Lara MD Unavailable + [phone] Summer Lara MD Unavailable +[phone] Tavia Wyatt MD Unavailable Unavailable Johnny Murillo MD Unavailable +[phone] Erica Farrell APRN FINE ARTS TEACHER Unavailable + Teresita Bean [facility] Unavailable [phone] Tvaia Wyatt MD Unavailable Unavailable Diana Desir [facility] Unavailable [phone] Rich Barrett MD Unavailable [phone] Neil Kent MD Unavailable Roney Story DPM Unavailable [phone] Erica Farrell BOOM PUMP OPERATOR FINE ARTS TEACHER Unavailable + Diana Desir [facility] Unavailable [phone] Jelena David OD Unavailable Galo Burrell MD Unavailable Unavailable Livan Sharif MD Unavailable + Livan Sharif MD Unavailable + Catherine Cm MD Unavailable + Valery Veronica PA-C Unavailable [phone] Catherine Cm MD Unavailable + Johnny Murillo MD Unavailable [phone] Brea Quinn APRN FINE ARTS TEACHER Unavailable [phone] Brea Quinn BOOM PUMP OPERATOR FINE ARTS TEACHER Unavailable [phone] Jose Francisco Johnson MD Unavailable Livan Sharif MD Unavailable Catherine Cm MD Unavailable + Sydnie Martinez RN Unavailable Unavailable Alfonso Renteria MD Unavailable [phone] Esha Grimm PA-C Primary Care Provider Cheng Todd PA-C Unavailable Armani Radha Sia BOOM PUMP OPERATOR FINE ARTS TEACHER Unavailable Frankie Jelena Radha OD Unavailable Pao Joseph RN Unavailable Unavailable Esha Grimm PA-C Unavailable [phone] Valery Veronica PA-C Unavailable Rey Tay MD Unavailable Rocky Zepeda DO Unavailable Philip Dumont MD Unavailable Meredith Carrera PA-C Unavailable Neil Kent MD Unavailable Juan Palbo Emmanuel MD Unavailable Audrey Waite PA-C Unavailable [phone] Encounter Details Date Type Department Care Team (Late st Contact Info) Description 02/27/[address], [address] [place] [address] Rakesh Cid, PA-C [address] [place] [address] Social History Tobacco Use Types [...] message?: Yes at Home number on file [phone] (home) Violet Randlethanh Patient Senior Quality Assurance Specialist documented in this encounter Plan of Treatment Upcoming Encounters Date Type Department Care Team (Late st Contact Info) Description 03/26/2024 11:20 AM CDT Office Visit [facility] Spine and Neurosurgery [address] [facility] [address] [place] [address] Ebony Cid APRN [facility] [address] [place], [place] [address] 03/27/2024 11:00 AM CDT Office Visit [facility] [address] [facility] [address] [place] [address] [place], [place] [address] [facility] [place] [address] 04/19/2024 2:45 PM CDT Office Visit [facility] [address] [place] [phone] Audrey Waite PA-C [address] [facility] [address], [facility] [address] [place], [place] [address] 05/08/2024 1:30 PM CDT Office Visit [facility] [address] [place] [address] Lauren Claudio PA-C [address] [place] [address] Esha Grimm PA-C [address] [place] [address] 06/21/2024 2:00 PM OCCUPATIONAL THERAPY PROFESSOR Office Visit [facility] Neurology [address], [address] [place] [phone] [place] [address] [place] [id number] Johnny Penn MD [address] [place], [place] [phone] Scheduled Procedures Name Priority Associated Diagnoses Date/Ti me ESOPHAGOGASTRODUODENOSCOPY Eosinophilic esophagitis Esophageal dysphagia documented as of this encounter Visit Diagnoses Not on filedocumented in this encounter Additional Health Concerns Infection Onset Date Last Indicated Resolved Time Rule Out COVID-19 07/30/2020 07/30/2020 07/30/2020 7:11 PM OCCUPATIONAL THERAPY PROFESSOR Rule Out COVID-19 08/30/2020 08/30/2020 08/30/2020 5:05 PM OCCUPATIONAL THERAPY PROFESSOR Rule Out COVID-19 09/24/2020 09/24/2020 09/24/2020 9:24 AM CDT Rule Out COVID-19 11/05/2020 11/05/2020 11/06/2020 1:09 PM CDT Rule Out COVID-19 05/11/2021 05/11/2021 05/13/2021 10:18 AM CDT Rule Out COVID-19 07/13/2021 07/13/2021 07/14/2021 3:04 PM OCCUPATIONAL THERAPY PROFESSOR Rule Out COVID-19 07/18/2021 07/18/2021 07/20/2021 1:56 PM OCCUPATIONAL THERAPY PROFESSOR COVID-19 07/18/2021 07/18/2021 08/08/2021 11:3 9 PM OCCUPATIONAL THERAPY PROFESSOR Rule Out COVID-19 12/18/2021 12/18/2021 12/19/2021 11:34 AM CDT Rule Out COVID-19 02/24/2022 02/24/2022 02/25/2022 1:08 PM CDT Rule Out COVID-19 04/26/2022 04/26/2022 04/26/2022 6:47 AM CDT Rule Out COVID-19 05/17/2022 05/17/2022 05/17/2022 10:20 PM OCCUPATIONAL THERAPY PROFESSOR Rule Out COVID-19 06/09/2022 06/09/2022 06/09/2022 9:35 AM OCCUPATIONAL THERAPY PROFESSOR COVID-19 06/09/2022 06/09/2022 06/30/2022 11:4 1 PM OCCUPATIONAL THERAPY PROFESSOR Rule Out COVID-19 11/10/2022 11/10/2022 11/11/2022 12:17 PM CDT Rule Out COVID-19 03/07/2023 03/07/2023 03/07/2023 1:20 PM CDT Rule Out COVID-19 12/26/2023 12/26/2023 12/26/2023 9:50 AM CDT Assessment Noted Time PHQ-9 Depression Total Score: 11 08//2 020 1:14 PM CDT documented as of this encounter Care Teams Coil Wrapper Relationship Specialty Start Date End Date Rakesh Cid PA-C [address] [place] [address] PCP - General Physician Market Intelligence Consultant - Medical 05/14/19 04/29/20 Marija Edgar APRN FINE ARTS TEACHER PCP - General Nurse Practitioner 04/30/20 04/14/23 Esha Grimm PA-C [address] [place] [address] PCP - General Family Medicine 05/04/23 Rakesh Cid PA-C [address] [place] [address] Assigned PCP 05/06/19 03/01/20 Lita Oseguera Personal Advocate & Liaison (PAL) 02/28/20 03/27/23 Rakesh Cid PA-C [address] [facility] [place] [address] Assigned PCP 03/02/20 06/07/20 Isaura Lamar, RN Personal Advocate & Liaison (PAL) Family Practice 04/03/20 04/06/20 Lita Oseguera Personal Advocate & Liaison (PAL) 04/07/20 04/29/20 [place] [address] [address] [facility], [address] [address] Assigned OBGYN Provider 05/02/2005/09 Lesley Moody, W Community Health Worker 05/30/2005/12 Kyara De La Fuente RN Specialty [facility] Neurology 06/04/20 03/05/21 Marija Edgar APRN FINE ARTS TEACHER Assigned PCP 06/08/20 04/29/23 Mynor Broussard MD [address] [id number] Assigned Surgical Provider 06/01/20 11/28/21 Keisha Dotson MD [address] [place] [address] Assigned Neuroscience Provider 06/04/20 04/01/23 Mary Mejia Financial Resource Worker 08/07/20 08/21/20 Stacey Briones, [facility] Lead [facility] - CC 08/11/2012/30 Lesley [...] Worker 02/09/21 02/09/21 Diana Desir, [facility] [address] [place] [address] Pharmacist Pharmacist 04/17/21 Rain Galvaiz PA-C [address] [place] [address] [place] [address] Physician Market Intelligence Consultant Dermatology 04/28/21 Summer Lara MD [address] [place] [address] Assigned OBGYN Provider 05/10/2105/23 Summer Lara MD [address] [place] [address] Assigned OBGYN Provider 05/31/21 2 Summer Lara MD [address] [place] [address] Assigned OBGYN Provider 05/24/2105/30 Tavia Wyatt MD [address] [place] [address] Dermatology 07/14/21 Johnny Murillo MD [facility] [facility] [address] [place] [address] Assigned Musculoskeletal Provider 08/30/21 03/17/22 Erica Farrell APRN FINE ARTS TEACHER [address] [facility] [address] [place] [address] Nurse Practitioner Cardiovascular Disease 09/09/21 Teresita Bean, [facility] [address] [place] [phone] Pharmacist Pharmacist 09/24/21 09/29/21 Tavia Wyatt MD Assigned Surgical Provider 11/29/21 05/07/22 Diana Desir, [facility] [address] [place] [address] Assigned MTM Pharmacist 01/02/22 Rich Barrett MD [address] [phone] Physician Ophthalmology 01/21/22 Neil Kent MD [address] [place], [place] [address] Dermatology 02/24/22 Roney Story DPM [address] [facility] [address] [place] [address] Assigned Musculoskeletal Provider 03/20/22 08/13/22 Erica Farrell APRN FINE ARTS TEACHER [address] [place] [address] Assigned Heart and Vascular Provider 04/03/22 04/16/22 Diana Desir, [facility] [address] [place] [address] Assigned MTM Pharmacist 04/07/22 Jelena David OD [address] [facility] [place] [address] Assigned Surgical Provider 05/08/22 10/08/22 Galo Burrell MD Assigned Heart and Vascular Provider 04/17/22 06/11/22 Livan Sharif MD [address], [facility] [address] [place] [address] Cardiovascular Disease 05/14/22 Livan Sharif MD [address], [facility] [address] [place] [address] Assigned Heart and Vascular Provider 06/12/22 07/23/22 Catherine Cm MD [address] [facility] [place] [address] Cardiovascular Disease 07/21/22 Valery Veronica, PA-C [address] [place] [address] Physician Market Intelligence Consultant Dermatology 07/21/22 Catherine Cm MD [address] [facility] [address] [place] [address] Assigned Heart and Vascular Provider 07/24/22 11/05/22 Johnny Murillo MD [address] [place] [address] [id number] Assigned Musculoskeletal Provider 08/14/22 10/08/22 Brea Quinn APRN FINE ARTS TEACHER [address] [place] [address] 145205 Nurse Practitioner Dermatology 09/21/22 Brea Quinn APRN FINE ARTS TEACHER [address] [place] [address], [place] [address] Assigned Surgical Provider 10/09/22 [place] [address] [place] [address] Assigned Musculoskeletal Provider 10/09/22 Livan Sharif MD [address], [facility] [address] [place] [address] Assigned Heart and Vascular Provider 11/06/22 11/12/22 Catherine Cm MD [address] [facility] [address] [place] [address] Assigned Heart and Vascular Provider 11/13/22 05/27/23 Sydnie Martinez RN Personal Advocate & Liaison (PAL) Family Medicine 03/28/23 07/31/23 Alfonso Renteria MD [address] [facility] [address] [place] [address] Assigned Neuroscience Provider 04/02/23 Cheng Todd PA-C [address] [place] [address] [phone] Assigned PCP 04/30/23 07/15/23 Radha Lomeli APRN FINE ARTS TEACHER [address] [place] 917[address] Assigned Heart and Vascular Provider 05/28/23 Jelena David OD [address] [facility] [place] [address] MD Ophthalmology 06/15/23 Pao Joseph, RN Personal Advocate & Liaison (PAL) Nurse 08/01/23 11/07/23 Esha Grimm PA-C [address] [place] [address] Assigned PCP 07/16/23 Valery Veronica PA-C [address] [place] [address] 837445 Physician Market Intelligence Consultant Dermatology 09/19/23 Rey Tay MD [address] [place] [address] 110405 MD Gastroenterology 09/20/23 Rocky Zepeda DO [address] [place] [address] 997795 Physician Gastroenterology 09/20/23 Philip Dumont MD [address] [place] [address] [phone] Physician Ophthalmology 09/22/23 Meredith Carrera PA-C [address] [place] [address] 801185 Assigned Gastroenterology Provider 11/01/23 Neil Kent MD [address] 171560 Dermatology 11/02/23 [place] [address] [place] [address] Neurological Surgery 12/26/23 Audrey Waite PA-C 500 [place] [address] Physician Market Intelligence Consultant Dermatology 02/28/24 documented as of this encounter
--- OUTSIDE RECORDS SUMMARY | 2024-03-12 19:45 | XMS_ITS | Encounter Summary ---
Author Organization [facility] Address [address] [place] [address] Care Team Providers Care Saw Feeder Name Role Phone Rakesh Cid PA-C Unavailable + Rakesh Cid PA-C Primary Care Provider Lita Oseguera Unavailable Unavailable Rakesh Cid PA-C Unavailable + Isaura Lamar RN Unavailable Unavailable Lita Oseguera Unavailable Unavailable Marija Edgar APRN INSTRUCTION LIBRARIAN Primary Care Provider Chanelle Gutierrez APRN CNM Unavailab le Lesley Moody CHW Unavailable [phone] Kyara De La Fuente RN Unavailable [phone] Marija Edgar APRN INSTRUCTION LIBRARIAN Unavailable Unavail able Mynor Broussard MD Unavailable [phone] Keisha Dotson MD Unavailable [phone] Mary Mejia Unavailable Unavailable Stacey Briones HEEL CURVER Unavailable [phone] Lesley Moody CHW Unavailable [phone] Mary Mejia Unavailable Unavailable Lita Oseguera Unavailable Unavailable Galo Burrell MD Unavailable Unavailable Cristina Wood Unavailable Lesley Moody [facility] Unavailable Meredith Bedoya Unavailable Unavailable Cristina Wood Unavailable Diana Desir [facility] Unavailable [phone] Rain Galaviz PA-C Unavailable Summer Lara MD Unavailable [phone] Summer Lara MD Unavailable [phone] Summer Lara MD Unavailable [phone] Tavia Wyatt MD Unavailable Unavailable Johnny Murillo MD Unavailable +[phone] Erica Farrell APRN INSTRUCTION LIBRARIAN Unavailable + Teresita Bean [facility] Unavailable [phone] Tavia Wyatt MD Unavailable Unavailable Diana Desir [facility] Unavailable [phone] Rich Barrett MD Unavailable [phone] Neil Kent MD Unavailable Roney Story DPM Unavailable [phone] Erica Farrell SPRAY I PAINTER INSTRUCTION LIBRARIAN Unavailable + Diana Desir [facility] Unavailable [phone] Jelena David OD Unavailable Galo Burrell MD Unavailable Unavailable Livan Sharif MD Unavailable + Livan Sharif MD Unavailable + Catherine Cm MD Unavailable + Valery Veronica PA-C Unavailable [phone] Catherine Cm MD Unavailable + Johnny Murillo MD Unavailable [phone] Brea Quinn SPRAY I PAINTER INSTRUCTION LIBRARIAN Unavailable [phone] Brea Quinn SPRAY I PAINTER INSTRUCTION LIBRARIAN Unavailable [phone] Jose Francisco Johnson MD Unavailable Livan Sharif MD Unavailable Catherine Cm MD Unavailable + Sydnie Martinez RN Unavailable Unavailable Alfonso Renteria MD Unavailable Esha Grimm PA-C Primary Care Provider Cheng Todd PA-C Unavailable Armani Radha Sia SPRAY I PAINTER INSTRUCTION LIBRARIAN Unavailable Frankie Jelena Templetone OD Unavailable Pao Joseph RN Unavailable Unavailable Esha Grimm PA-C Unavailable [phone] Valery Veronica PA-C Unavailable Rey Tay MD Unavailable Rocky Zepeda DO Unavailable Philip Dumont MD Unavailable [phone] Meredith Carrera PA-C Unavailable Neil Kent MD Unavailable Juan Pablo Emmanuel MD Unavailable Audrey Waite PA-C Unavailable Reason for Visit * Reason Onset Date Comments Appointment 02/13/2020 Anxiety Encounter Details Date Type Department Care Team (Late st Contact Info) Description 02/13/2020 [facility] [address] [address] Rakesh Cid PA-C [address] [place] [address] Appointment (Anxiety) Social History Tobacco [...] Forrester RN - 02/15/2020 2:28 PM CDT Avancart message sent to patient to schedule a [...] [facility]ine [facility] Neurosurgery [address] [place] [phone] Ebony Cid, SPRAY I PAINTER [facility] [address] [place] [address] 03/27/2024 11:00 AM CDT Office Visit [facility] [address] [place] [address] Frank[place] Jelena [place], [place] [address] [facility] [place] [address] 04/19/2024 2:45 PM CDT Office Visit [facility] [address] [place] [phone] Audrey Waite PA-C [address] [facility] [address], [facility] [address] [place], [place] [address] 05/08/2024 1:30 PM CDT Office Visit [facility] [address] [place] [address] Lauren Claudio PA-C [address] [place], [place] [phone] Esha Grimm PA-C [address] [place] [address] 06/21/2024 2:00 PM CUFFER Office Visit [facility] Neurology [facility] [address] [place] [address], [address] [place] [address] [place] [address] [place] [address] Johnny Penn MD [address] [facility] [place] [id number] Scheduled Procedures Name Priority Associated Diagnoses Date/Ti me ESOPHAGOGASTRODUODENOSCOPY Eosinophilic esophagitis Esophageal dysphagia documented as of this encounter Visit Diagnoses Not on filedocumented in this encounter Additional Health Concerns Infection Onset Date Last Indicated Resolved Time Rule Out COVID-19 07/30/2020 07/30/2020 07/30/2020 7:11 PM CUFFER Rule Out COVID-19 08/30/2020 08/30/2020 08/30/2020 5:05 PM CUFFER Rule Out COVID-19 09/24/2020 09/24/2020 09/24/2020 9:24 AM CDT Rule Out COVID-19 11/05/2020 11/05/2020 11/06/2020 1:09 PM CDT Rule Out COVID-19 05/11/2021 05/11/2021 05/13/2021 10:18 AM CDT Rule Out COVID-19 07/13/2021 07/13/2021 07/14/2021 3:04 PM CUFFER Rule Out COVID-19 07/18/2021 07/18/2021 07/20/2021 1:56 PM CUFFER COVID-19 07/18/2021 07/18/2021 08/08/2021 11:3 9 PM CUFFER Rule Out COVID-19 12/18/2021 12/18/2021 12/19/2021 11:34 AM CDT Rule Out COVID-19 02/24/2022 02/24/2022 02/25/2022 1:08 PM CDT Rule Out COVID-19 04/26/2022 04/26/2022 04/26/2022 6:47 AM CDT Rule Out COVID-19 05/17/2022 05/17/2022 05/17/2022 10:20 PM CUFFER Rule Out COVID-19 06/09/2022 06/09/2022 06/09/2022 9:35 AM CUFFER COVID-19 06/09/2022 06/09/2022 06/30/2022 11:4 1 PM CUFFER Rule Out COVID-19 11/10/2022 11/10/2022 11/11/2022 12:17 PM CDT Rule Out COVID-19 03/07/2023 03/07/2023 03/07/2023 1:20 PM CDT Rule Out COVID-19 12/26/2023 12/26/2023 12/26/2023 9:50 AM CDT Assessment Noted Time PHQ-9 Depression Total Score: 1 09/11/19 1:42 PM CUFFER documented as of this encounter Care Teams Saw Feeder Relationship Specialty Start Date End Date Rakesh Cid PA-C [address] [facility] [address] PCP - General Physician Local Company Refrigerated Truck Driver - Medical 05/14/19 04/29/20 Marija Edgar APRN INSTRUCTION LIBRARIAN PCP - General Nurse Practitioner 04/30/20 04/14/23 Esha Grimm PA-C [address] [place] [address] PCP - General Family Medicine 05/04/23 Rakesh Cid PA-C [address] [facility] [place] [address] Assigned PCP 05/06/19 03/01/20 Lita Oseguera Personal Advocate & Liaison (PAL) 02/28/20 03/27/23 Rakesh Cid PA-C [address] [facility] [address] Assigned PCP 03/02/20 06/07/20 Isaura Lamar, RN Personal Advocate & Liaison (PAL) Family Practice 04/03/20 04/06/20 Lita Oseguera Personal Advocate & Liaison (PAL) 04/07/20 04/29/20 Chanelle Mccann APRN CNM [address] [facility], [address] [address] Assigned OBGYN Provider 05/02/2005/09 Lesley Moody, CHW Community Health Worker 05/30/2005/12 Kyara De La Fuente, RN Specialty Representative Personal Service Neurology 06/04/20 03/05/21 Marija Edgar APRN INSTRUCTION LIBRARIAN Assigned PCP 06/08/20 04/29/23 Mynor Broussard MD [address] [id number] Assigned Surgical Provider 06/01/20 11/28/21 Keisha Dotson MD [address] [place], [place] [address] Assigned Neuroscience Provider 06/04/20 04/01/23 Mary Mejia Financial Resource Worker 08/07/20 08/21/20 Stacey Briones, [facility] Lead Representative Personal Service Primary Care - CC 08/11/2012/30 Lesley Moody, W Community Health Worker 08/11/2010/01 Mary Mejia Financial Resource Worker 09/02/20 10/06/20 Lita Oseguera Personal Advocate & Liaison (PAL) Family Medicine 09/10/20 09/21/20 Galo Burrell MD Assigned Heart and Vascular Provider 10/05/20 04/02/22 Cristina Wood Financial Resource Worker 10/07/20 10/14/20 Lesley Moody, W Community Health Worker 10/23/2012/30 Meredith Bedoya Financial Resource Worker 10/23/20 11/23/20 NinaCristina Financial Resource Worker 02/09/21 02/09/21 [facility] [address] [place] [address] Pharmacist Pharmacist 04/17/21 Rain Galaviz PA-C [address] [place] [address] [place] [address] Physician Local Company Refrigerated Truck Driver Dermatology 04/28/21 Summer Lara MD 606 [facility] [place] [address] Assigned OBGYN Provider 05/10/2105/23 Summer Lara MD [address] [place] [address] Assigned OBGYN Provider 05/31/21 2 Summer Lara MD 606 [facility] [place], [place] 4520[address] Assigned OBGYN Provider 05/24/2105/30 Tavia Wyatt MD [address] [place] [address] Dermatology 07/14/21 Johnny Murillo MD [address] [place], [place] 3350[address] Assigned Musculoskeletal Provider 08/30/21 03/17/22 Erica Farrell APRN INSTRUCTION LIBRARIAN [address] [facility] [address] [place] [address] Nurse Practitioner Cardiovascular Disease 09/09/21 Teresita Bean, [facility] [address] [place] [phone] Pharmacist Pharmacist 09/24/21 09/29/21 Tavia Wyatt MD Assigned Surgical Provider 11/29/21 05/07/22 Diana Desir, [facility] [address] [place] [address] Assigned MTM Pharmacist 01/02/22 Rich Barrett MD [address] [address] Physician Ophthalmology 01/21/22 Neil Kent MD [address] [place], [place] 78[address] Dermatology 02/24/22 Roney Story DPM [address] [facility] [address] [place] [address] Assigned Musculoskeletal Provider 03/20/22 08/13/22 Erica Farrell APRN INSTRUCTION LIBRARIAN [address] [place] [address] Assigned Heart and Vascular Provider 04/03/22 04/16/22 Diana Desir, [facility] [address] [place] [address] Assigned MTM Pharmacist 04/07/22 Jelena Dvaid OD [address] [place] [address] Assigned Surgical Provider 05/08/22 10/08/22 Galo Burrell MD Assigned Heart and Vascular Provider 04/17/22 06/11/22 Livan Sharif MD [address], [facility] [address] [place], [place] [address] Cardiovascular Disease 05/14/22 Livan Sharif MD [address], [facility] [address] [place] [address] Assigned Heart and Vascular Provider 06/12/22 07/23/22 Catherine Cm MD [address] [facility] [place] [address] Cardiovascular Disease 07/21/22 Valery Veronica, PA-C [address] [place] [address] Physician Local Company Refrigerated Truck Driver Dermatology 07/21/22 Catherine Cm MD [address] [facility] [place] [address] Assigned Heart and Vascular Provider 07/24/22 11/05/22 Johnny Murillo MD [address] [place] [address] Assigned Musculoskeletal Provider 08/14/22 10/08/22 Brea Quinn APRN INSTRUCTION LIBRARIAN [address] [place] [address] Nurse Practitioner Dermatology 09/21/22 Brea Quinn APRN INSTRUCTION LIBRARIAN 64[address] [facility] [place] [address] Assigned Surgical Provider 10/09/22 [place] [address] [facility] [address] [place] [address] Assigned Musculoskeletal Provider 10/09/22 Livan Sharif MD [address] [facility] [address] [place] [address] Assigned Heart and Vascular Provider 11/06/22 11/12/22 Catherine Cm MD [address] [facility] [place] [address] Assigned Heart and Vascular Provider 11/13/22 05/27/23 Sydnie Martinez RN Personal Advocate & Liaison (PAL) Family Medicine 03/28/23 07/31/23 Alfonso Renteria MD [address] [facility] 200 [place] [address] Assigned Neuroscience Provider 04/02/23 Cheng Todd PA-C [address] [place] [address] [phone] Assigned PCP 04/30/23 07/15/23 Radha Lomeli APRN INSTRUCTION LIBRARIAN [address] [place] 727705 Assigned Heart and Vascular Provider 05/28/23 Jelena David OD [facility] [place] [address] MD Ophthalmology 06/15/23 Pao Joseph, RN Personal Advocate & Liaison (PAL) Nurse 08/01/23 11/07/23 Esha Grimm PA-C [address] [place] [address] Assigned PCP 07/16/23 Valery Veronica PA-C [address] [place] [address] 810085 Physician Local Company Refrigerated Truck Driver Dermatology 09/19/23 Rey Tay MD [address] [place] [address] Gastroenterology 09/20/23 Rocky Zepeda DO [address] [place] [address] 650495 Physician Gastroenterology 09/20/23 Philip Dumont MD [address] [place] [address] 752405 Physician Ophthalmology 09/22/23 Meredith Carrera PA-C [address] [place] [address] 512865 Assigned Gastroenterology Provider 11/01/23 Neil [place] MD [address] [address] Dermatology 11/02/23 [place] [address] [address] Neurological Surgery 12/26/23 Audrey Waite, PAUcheC 500 [place], [place] [address] Physician Local Company Refrigerated Truck Driver Dermatology 02/28/24 documented as of this encounter
--- OUTSIDE RECORDS SUMMARY | 2024-03-12 19:45 | XMS_ITS ---
Author Organization [facility] Address [address] [place] [address] Care Team Providers Care Frame Opener Name Role Phone ThangKendrickDiana T [facility] Unavailable Rain Galaviz-C Unavailable Tavia Wyatt MD Unavailable Unavailable Erica Farrell APRN APPLICATIONS COORDINATOR Unavailable Rich Barrett MD Unavailable Neil Kent MD Unavailable Diana Desir [facility] Unavailable [phone] Livan Sharif MD Unavailable Catherine Cm MD Unavailable + Valery Veronica-C Unavailable [phone] Brea Quinn [employer] APPLICATIONS COORDINATOR Unavailable [phone] Brea Quinn [employer] APPLICATIONS COORDINATOR Unavailable Jose Francisco Johnson MD Unavailable Alfonso Renteria MD Unavailable + [phone] Esha Grimm PA-C Primary Care Provider [phone] Radha Lomeli [employer] APPLICATIONS COORDINATOR Unavailable Jelena David OD Unavailable Esha Grimm PA-C Unavailable [phone] Valery Veronica PA-C Unavailable Rey Tay MD Unavailable Rocky Zepeda DO Unavailable Philip Dumont MD Unavailable [phone] Meredith Carrera PA-C Unavailable Neil Kent MD Unavailable Juan Pablo Emmanuel MD Unavailable Audrey Waite PA-C Unavailable Primary Care Care Coordination Status:Declined (Declined) Start date:12/27/2023 End date:12/27/2023 Decline reason:Not interested Continued Care and Services Coordination
--- NOTE | 2024-03-12 19:56 | ED_ITS ---
HPI - General Adult General Chief complaint: Shortness of Breath/Dyspnea Stated complaint: short of breath Time Seen by Provider: 03/12/24 18:57 History of Present Illness HPI narrative: Patient is a 23-year-old woman who has been having left-sided back pain posteriorly as well as shortness of breath for the last 2-3 weeks. Patient recently quit vaping. She has had no cough no sputum production no chest pain orthopnea no PND. Symptoms seem to get worse when she is active. Patient has had no sick exposure no cold symptoms. Related Data Home Medications ?Medication ?Instructions ?Recorded ?Confirmed omeprazole 40 mg capsule,delayed 40 mg PO DAILY 04/28/22 10/28/23 release lorazepam 0.5 mg tablet 0.5 mg PO DAILY PRN anxiety 03/18/23 10/28/23 metoprolol succinate 25 mg 12.5 mg PO DAILY 10/15/23 10/28/23 tablet,extended release 24 hr paroxetine HCl 40 mg tablet 40 mg PO QAM 10/15/23 10/28/23 Previous Rx's ?Medication ?Instructions ?Recorded famotidine 40 mg tablet 40 mg PO DAILY #30 tabs 10/28/23 sucralfate 1 gram tablet (Carafate) 1 g PO BID #60 tabs 10/28/23 Allergies Allergy/AdvReac Type Severity Reaction Status Date / Time vancomycin Allergy Verified 03/12/24 18:48 Review of Systems Status of ROS: Reports: 10 or more systems reviewed and unremarkable except as noted in History and below PFSH PFS Medical History SVT (supraventricular tachycardia) ?I47.10 - Supraventricular tachycardia, unspecified (ICD-10) Social History Smoking Status: Former smoker What tobacco products do you use: cigarettes Smoking quit date/years: <= 15 years ago Do you use any of these nicotine containing products: None and Vaping Products Second hand tobacco smoke exposure: No How often do you have a drink containing alcohol: monthly or less How often do you have six or more drinks on one occasion: Never AUDIT-C Alcohol total score: 1 Non-prescribed substance use: denies use service: No Exam Narrative: Exam Narrative: EXAM GENERAL: Patient appears comfortable and well. EYES: No scleral icterus. LYMPH: No supraclavicular or cervical lymphadenopathy. SKIN: Visible skin seen during exam normal or with benign process only. EXT: No dependent lower extremity pedal edema. HEART: Regular rate and rhythm with no murmurs, rubs, or gallops. LUNGS: Clear to auscultation bilaterally with no crackles or wheezes. ABD: Soft, non tender, non distended. PSYCH: Good eye contact, speech is not pressured. Const: Vital Signs, click to edit/add: Vital Signs - 24 hr 03/12/24 18:48 Temperature 97.8 F Pulse Rate [Pulse Oximeter] 76 Respiratory Rate 14 [facility] 104/65 Pulse Oximetry 97 Oxygen Delivery Me thod Room Air Course Course ED Course: Chest x-ray D-dimer troponin EKG CBC basic metabolic panel ordered. Patient seen and examined. Vital Signs Vital signs: Initial Vital Signs Temperature 97.8 F 03/12/24 18:48 Temperature Source Temporal Artery Scan 03/12/24 18:48 Pulse Rate 76 03/12/24 18:48 Pulse Rhythm Regular 03/12/24 18:48 Respiratory Rate 14 03/12/24 18:48 Blood Pressure 104/65 03/12/24 18:48 Blood Pressure Mean 78 03/12/24 18:48 Blood Pressure Position Sitting 03/12/24 18:48 Pulse Oximetry 97 03/12/24 18:48 Oxygen Delivery Method Room Air 03/12/24 18:48 Vital Signs Temperature 97.8 F 03/12/24 18:48 Pulse Rate 76 03/12/24 18:48 Respiratory Rate 14 03/12/24 18:48 Blood Pressure 104/65 03/12/24 18:48 Pulse Oximetry 97 03/12/24 18:48 Oxygen Delivery Method Room Air 03/12/24 18:48 Temperature 97.8 F 03/12/24 18:48 Pulse Rate 76 03/12/24 18:48 Respiratory Rate 14 03/12/24 18:48 Blood Pressure 104/65 03/12/24 18:48 Pulse Oximetry 97 03/12/24 18:48 Oxygen Delivery Method Room Air 03/12/24 18:48 Medical Decision Making Lab Data Labs: Lab Results 03/12/24 Range/Units 20:07 WBC 5.94 (4.50-11.00) K/uL RBC 4.61 (4.00-5.20) m/uL Hgb 12.0 (12.0-16.0) gm/dL Hct 37.6 (33.0-51.0) % MCV 82 (80-100) fL MCH 26 (26-34) pg MCHC 32 (32-36) gm/dL RDW Coeff of Naina 12.6 (11.5-15.5) % Plt Count 237 (140-440) K/uL Neut % (Auto) 53.3 (42.0-72.0) % Lymph % (Auto) 35.4 (20-44) % [place] % (Auto) 5.9 (0.0-11.0) % Eos % (Auto) 5.1 (0.0-7.0) % Baso % (Auto) 0.3 (0.0-3.0) % Neut # (Auto) 3.17 (1.7-7.0) K/uL Lymph # (Auto) 2.10 (0.90-2.90) K/uL [place] # (Auto) 0.40 (0.00-0.90) K/UL Eos # (Auto) 0.30 (0.00-0.50) K/uL Baso # (Auto) 0.02 (0.00-0.30) K/uL Abs Immat Gran (auto) 0.00 (0.00-0.30) K/uL Imm/Tot Granulo (auto) 0.0 % D-Dimer Quant (PE/DVT) 0.15 (0.00-0.50) ug/ml Sodium 136 (135-149) mmol/L Potassium 3.8 (3.6-5.1) mmol/L Chloride 106 (96-114) mmol/L Carbon Dioxide 24 (20-32) mmol/L Anion Gap 6 L (7-15) mEq/L BUN 17 (5-24) mg/dL Creatinine 0.7 (0.5-1.5) mg/dL Estimated Creat Clear 117.01 Estimated GFR 125 ml/min Glucose 86 (60-115) mg/dL Calcium 9.2 (8.4-10.6) mg/dL Troponin I < 0.01 L (0.01-0.04) ng/mL Discharge Plan Discharge Clinical Impression: Pleuritic pain, Back pain, Dyspnea Patient Disposition: Home, Self-Care Condition: Stable Additional Instructions: Hopefully you can stop vaping again. I think it is reasonable to try this steroid course as discussed with Dr. Santos. If not improved in a week I would follow up for re-evaluation. Return or be seen sooner for marked increase in persistent pain, increasing shortness of breath at rest. See handout on stretches for back/upper back pain. This might also be helpful to do regularly. Prednisone from [facility]. Prescriptions: No Action lorazepam 0.5 mg tablet 0.5 mg PO DAILY PRN (Reason: anxiety) famotidine 40 mg tablet 40 mg PO DAILY Qty: 30 0RF sucralfate [Carafate] 1 gram tablet 1 g PO BID Qty: 60 2RF omeprazole 40 mg capsule,delayed release(DR/EC) 40 mg PO DAILY Patient Comments: TAKE ONE CAPSULE BY MOUTH EVERY DAY . metoprolol succinate 25 mg tablet extended release 24 hr 12.5 mg PO DAILY paroxetine HCl 40 mg tablet 40 mg PO QAM Follow Up/Referrals: Provider,Not a Local [Primary Care Provider] - Stand Alone Forms: [employer] Info Instructions
[2024-03-12 20:12] LABS: Basophils Absolute Auto 0.02 K/uL (0.00-0.30); Basophils Percent Auto 0.3 % (0.0-3.0); Eosinophils Percent Auto 5.1 % (0.0-7.0); Hematocrit 37.6 % (33.0-51.0); Lymphocytes Percent Auto 35.4 % (20-44); Mean Corpuscular HGB Conc 32 gm/dL (32-36); Mean Corpuscular Hemoglobin 26 pg (26-34); Mean Corpuscular Volume 82 fL (80-100); Monocytes Percent Auto 5.9 % (0.0-11.0); Neutrophils Absolute Auto 3.17 K/uL (1.7-7.0); Neutrophils Percent Auto 53.3 % (42.0-72.0); Platelet Count* 237 K/uL (140-440); RDW Coefficient of Variation % 12.6 % (11.5-15.5); Red Blood Count 4.61 m/uL (4.00-5.20); White Blood Count* 5.94 K/uL (4.50-11.00)
[2024-03-12 20:14] LABS: Slide Review Reflex No
[2024-03-12 20:25] LABS: Chloride* 106 mmol/L (96-114); Potassium* 3.8 mmol/L (3.6-5.1); Sodium* 136 mmol/L (135-149)
[2024-03-12 20:28] LABS: Anion Gap 6 mEq/L (7-15); Carbon Dioxide* 24 mmol/L (20-32); Creatinine* 0.7 mg/dL (0.5-1.5); Est. Creatinine Clearance* 117.01; Estimated Glomerular Filt Rate 125 ml/min
[2024-03-12 20:29] LABS: Blood Urea Nitrogen* 17 mg/dL (5-24); Calcium* 9.2 mg/dL (8.4-10.6); Glucose* 86 mg/dL (60-115)
[2024-03-12 20:36] LABS: D Dimer Quantitative* 0.15 ug/ml (0.00-0.50)
[2024-03-12 20:51] LABS: Troponin I* < 0.01 ng/mL (0.01-0.04)
== END 2024-03-12 21:28 | disposition home or self-care (01) ==
PROVIDERS: Emergency Provider Internal Medicine
DX: R07.81 Pleurodynia (principal); M54.9 Dorsalgia, unspecified; R06.00 Dyspnea, unspecified
CPT/HCPCS: 36415; 71046; 80048; 84484; 85025; 85379; 93005; 99283; 99284; 99285

== ENCOUNTER 2024-03-23 14:40 | Emergency (ER) | payer MEDICAID, SELFPAY ==
[2024-03-23 14:48] VITALS: BP 127/70; PULSE 79; RESP 16; TEMP 36.3; O2SAT 98; BMI 30.7
--- NOTE | 2024-03-23 15:47 | ED_ITS ---
HPI - General Adult General Chief complaint: Chest Pain Stated complaint: palpitations, SOB, Chest pain Time Seen by Provider: 03/23/24 14:44 History of Present Illness HPI narrative: This 23-year-old female comes in reporting some episodes of chest tightness and associated feeling of difficulty taking a good breath. She has a history of psoriasis and is taking metoprolol 12.5 mg daily. She missed her dose this morning and took it at about noon. She understands that there can be some rebound affects when missing a dose of a beta-joseph. She does not report any chest pain, nausea, vomiting, lightheadedness, or diaphoresis. She does not have any unilateral leg or upper extremity swelling or pain. She arrives here with normal vital signs. She does have a history of a cardiac ablation. Related Data Home Medications ?Medication ?Instructions ?Recorded ?Confirmed omeprazole 40 mg capsule,delayed 40 mg PO DAILY 04/28/22 03/23/24 release lorazepam 0.5 mg tablet 0.5 mg PO DAILY PRN anxiety 03/18/23 03/23/24 metoprolol succinate 25 mg 12.5 mg PO DAILY 10/15/23 03/23/24 tablet,extended release 24 hr paroxetine HCl 40 mg tablet 40 mg PO QAM 10/15/23 03/23/24 Previous Rx's ?Medication ?Instructions ?Recorded methylprednisolone 4 mg tablets in See Rx Instructions PO .COMPLEX 03/23/24 a dose pack (Medrol (Maurisio)) #21 ea Allergies Allergy/AdvReac Type Severity Reaction Status Date / Time vancomycin Allergy Verified 03/23/24 14:52 Review of Systems Status of ROS: Reports: 10 or more systems reviewed and unremarkable except as noted in History and below Narrative: Constitutional: No fevers, no weight gain or loss. Eyes: No discharge. No vision changes. HENT: No congestion, no sore throat, no ear pain. Cardiovascular: No chest pain. She reports occasional palpitations. She is currently wearing a 2 week heart monitor. Respiratory: No shortness of breath, no wheezes, no cough. Gastrointestinal: No abdominal pain, no vomiting, no diarrhea. Genitourinary: No dysuria, no hematuria. Musculoskeletal: Normal range of motion. She reports some knee pain and back pain. Skin: Psoriasis. Neurological: No dizziness, weakness, sensory change, speech change. Endo/Heme/Allergies: No bruising or bleeding. No polydipsia. Pysch: no suicidality, no anxiety, no insomnia. All other systems reviewed and are negative. [facility] Medical History SVT (supraventricular tachycardia) ?I47.10 - Supraventricular tachycardia, unspecified (ICD-10) Social History Smoking Status: Former smoker What tobacco products do you use: cigarettes Smoking quit date/years: <= 15 years ago Do you use any of these nicotine containing products: None and Vaping Products Second hand tobacco smoke exposure: No How often do you have a drink containing alcohol: monthly or less How often do you have six or more drinks on one occasion: Never AUDIT-C Alcohol total score: 1 Non-prescribed substance use: denies use service: No Exam Const: Vital Signs, click to edit/add: Vital Signs - 24 hr 03/23/24 14:48 Temperature 97.4 F L Pulse Rate [Pulse Oximeter] 79 Respiratory Rate 16 Blood Pressure [Ri ght Upper Arm] 127/70 Pulse Oximetry 98 Oxygen Delivery Me thod Room Air Course Vital Signs Vital signs: Initial Vital Signs Temperature 97.4 F L 03/23/24 14:48 Temperature Source Temporal Artery Scan 03/23/24 14:48 Pulse Rate 79 03/23/24 14:48 Respiratory Rate 16 03/23/24 14:48 Blood Pressure 127/70 03/23/24 14:48 Blood Pressure Mean 89 03/23/24 14:48 Blood Pressure Position Sitting 03/23/24 14:48 Pulse Oximetry 98 03/23/24 14:48 Oxygen Delivery Method Room Air 03/23/24 14:48 Vital Signs Temperature 97.4 F L 03/23/24 14:48 Pulse Rate 79 03/23/24 14:48 Respiratory Rate 16 03/23/24 14:48 Blood Pressure 127/70 03/23/24 14:48 Pulse Oximetry 98 03/23/24 14:48 Oxygen Delivery Method Room Air 03/23/24 14:48 Temperature 97.4 F L 03/23/24 14:48 Pulse Rate 79 03/23/24 14:48 Respiratory Rate 16 03/23/24 14:48 Blood Pressure 127/70 03/23/24 14:48 Pulse Oximetry 98 03/23/24 14:48 Oxygen Delivery Method Room Air 03/23/24 14:48 Medical Decision Making MDM Narrative Medical decision making narrative: This 23-year-old female comes in reporting some tightness episodes in her right ribs and with her breathing. She is currently wearing a 14 day heart monitor and does have a history of supraventricular tachycardia that was treated successfully with an ablation. She does not have any nausea, vomiting, lightheadedness, diaphoresis, or exercise intolerance. She arrives here with normal vital signs. An EKG is obtained and shows normal sinus rhythm without any ST or T-wave abnormalities. Labs are also acquired and these returned with normal results throughout including a negative troponin. Additionally I did evaluate her heart with bedside ultrasound and saw normal cardiac anatomy and activity. The patient is reassured with these findings. She does have significant psoriasis and does report back pain and pain behind both of her knees. She may have some arthritic component to her psoriasis. She is taking topical steroids but yet has rather significant symptoms of psoriasis. I did provide a Medrol Dosepak. She is okay to be discharged home and will follow-up with her plans as scheduled for her heart monitor. Lab Data Labs: Lab Results 03/23/24 Range/Units 15:59 WBC 5.93 (4.50-11.00) K/uL RBC 4.75 (4.00-5.20) m/uL Hgb 12.4 (12.0-16.0) gm/dL Hct 38.8 (33.0-51.0) % MCV 82 (80-100) fL MCH 26 (26-34) pg MCHC 32 (32-36) gm/dL RDW Coeff of Naina 13.0 (11.5-15.5) % Plt Count 217 (140-440) K/uL Neut % (Auto) 51.7 (42.0-72.0) % Lymph % (Auto) 36.4 (20-44) % Hays % (Auto) 6.2 (0.0-11.0) % Eos % (Auto) 5.2 (0.0-7.0) % Baso % (Auto) 0.3 (0.0-3.0) % Neut # (Auto) 3.06 (1.7-7.0) K/uL Lymph # (Auto) 2.16 (0.90-2.90) K/uL Hays # (Auto) 0.40 (0.00-0.90) K/UL Eos # (Auto) 0.31 (0.00-0.50) K/uL Baso # (Auto) 0.02 (0.00-0.30) K/uL Abs Immat Gran (auto) 0.01 (0.00-0.30) K/uL Imm/Tot Granulo (auto) 0.2 % Sodium 137 (135-149) mmol/L Potassium 4.0 (3.6-5.1) mmol/L Chloride 103 (96-114) mmol/L Carbon Dioxide 23 (20-32) mmol/L Anion Gap 11 (7-15) mEq/L BUN 12 (5-24) mg/dL Creatinine 0.6 (0.5-1.5) mg/dL Estimated Creat Clear 136.51 Estimated GFR 129 ml/min Glucose 97 (60-115) mg/dL Calcium 9.9 (8.4-10.6) mg/dL POC Troponin I 0.01 (0.01-0.04) ng/ml ECG Data Attestation: I personally reviewed and interpreted this ECG as follows: Interpretation: Normal sinus rhythm. Rate is 71 beats per minute. There are no ST or T-wave abnormalities. Discharge Plan Discharge Clinical Impression: Chest tightness, Psoriasis Patient Disposition: Home, Self-Care Condition: Stable Additional Instructions: Take medication as prescribed. Follow up with MD as scheduled and needed. Return if worsening. Prescriptions: New methylprednisolone [Medrol (Maurisio)] 4 mg tablets,dose pack See Rx Instructions .ROUTE .COMPLEX Qty: 21 0RF Rx Instructions: orally per package directions No Action lorazepam 0.5 mg tablet 0.5 mg PO DAILY PRN (Reason: anxiety) omeprazole 40 mg capsule,delayed release(DR/EC) 40 mg PO DAILY Patient Comments: TAKE ONE CAPSULE BY MOUTH EVERY DAY . metoprolol succinate 25 mg tablet extended release 24 hr 12.5 mg PO DAILY paroxetine HCl 40 mg tablet 40 mg PO QAM Follow Up/Referrals: Provider,Not a Local [Primary Care Provider] - Stand Alone Forms: MyHealth Info Instructions Procedures Ultrasound Cardiac exam #1: Anatomical areas examined: parasternal long and parasternal short Indications: other Exam type: limited transthoracic echocardiogram Impression: negative exam
--- OUTSIDE RECORDS SUMMARY | 2024-03-23 15:51 | XMS_ITS | Clinical Summary ---
Author Organization [employer] [facility] Address [place], [place] [address] Care Team Providers Care Eye Care Professional Name Role Phone Clinic, No Pcp Or Primary Care Provider Unavaila ble Allergies No known active allergies Medications Medication Sig Dispensed Refills Start Date End Date Status biotin-silicon [id number] 3,000 mcg -100 mg-50 mg TbER Take [...] Comments Blood Pressure 124/78 08/31/2018 11:46 AM OFFICE SUPPORT SPECIALIST Pulse 78 08/31/2018 11:46 AM OFFICE SUPPORT SPECIALIST Temperature 37.1 ??C (98.8 ??F) 11/01/2017 5:26 PM CD T Respiratory Rate 16 11/01/2017 5:26 PM CDT Oxygen Saturation 96% 11/01/2017 5:26 PM CDT Inhaled Oxygen Concentration - - Weight 89.3 kg (196 lb 14.4 oz) 019 11:46 AM OFFICE SUPPORT SPECIALIST Height 166.5 cm (5' 5.55) 08/31/2018 1 1:46 AM OFFICE SUPPORT SPECIALIST Body Mass Index 32.22 08/31/2018 11:46 AM OFFICE SUPPORT SPECIALIST Plan of Treatment Health Maintenance Due Date [...] age 21-65 2021 COVID-19 vaccine series ( season) 2024 Influenza for age 9-49 03/11/2024 Pneumococcal series for age 6-64 Aged Out No longer eligible based on patient's age to complete this topic Care Teams Eye Care Professional Relationship Specialty Start Date End Date Clinic, No Pcp Or . PCP - General 08/12/17
--- OUTSIDE RECORDS SUMMARY | 2024-03-23 15:51 | XMS_ITS | Clinical Summary ---
Author Organization [facility] Address [address] [place] [phone] Phone Care Team Providers Care Director Of Scout Work Name Role Phone Unavailable Primary Care Provider [...]
--- OUTSIDE RECORDS SUMMARY | 2024-03-23 15:52 | XMS_ITS | Clinical Summary ---
Author Organization [place] Address [address] [place] [address] Care Team Providers Care [employer] Manager Name Role Phone ThangKendrickDiana T [facility] Unavailable Rain Galaviz PA-C Unavailable Tavia Wyatt MD Unavailable Unavailable Erica Farrell APRN PATIENT SCHEDULER Unavailable Rich Barrett MD Unavailable Neil Kent MD Unavailable Diana Desir Stanislav [facility] Unavailable [phone] Livan Sharif MD Unavailable Catherine Cm MD Unavailable + Valery Veronica PA-C Unavailable [phone] Brea Quinn DINKEY OPERATOR PATIENT SCHEDULER Unavailable Brea Quinn DINKEY OPERATOR PATIENT SCHEDULER Unavailable Jose Francisco Johnson MD Unavailable Alfonso Renteria MD Unavailable + [phone] Esha Grimm PA-C Primary Care Provider [phone] Radha Lomeli DINKEY OPERATOR PATIENT SCHEDULER Unavailable [phone] Jelena David OD Unavailable [facility] PA-C Unavailable [phone] Valery Veronica PA-C Unavailable [phone] eRy Tay MD Unavailable Rocky Zepeda Unavailable Philip Dumont MD Unavailable Meredith Carrera PA-C Unavailable Neil Kent MD Unavailable Juan Pablo Emmanuel MD Unavailable Audrey Waite PA-C Unavailable Allergies Active Allergy [...] g 09/01/2023 Active omeprazole (PRILOSEC) 40 MG capsuleVandana ns:Epigastric pain TAKE 1 CAPSULE BY MOUTH DAILY. 90 capsule 3 09/16/2023 Active Multiple Vitamin (MULTIVITAMIN ADULT PO) Active Digestive Enzymes (DIGESTIVE ENZYME PO) Active Probiotic Product (PROBIOTIC BLEND PO) Active LORazepam (ATIVAN) 0.5 MG tabletIndication s:Anxiety Take 1 tablet (0.5 mg) by mouth daily as needed for anxiety 30 tablet 10/27/2023 Active ketoconazole (NIZORAL) 2 % external shampooIndicatio ns:Psoriasis Use every 1-2 days when flared. Leave in few minutes before rinsing. Use twice weekly to prevent flares. 120 mL 11 11/17/2023 Active metoprolol succinate ER (TOPROL XL) 25 MG 24 hr tabletIndication s:Palpitations Take 0.5 tablets (12.5 mg) by mouth daily 45 tablet 1 11/22/2023 Active PARoxetine (PAXIL) 40 MG tabletIndication s:Anxiety TAKE ONE TABLET BY MOUTH EVERY MORNING 90 tablet 1 03/19/2024 Active PARoxetine (PAXIL) 40 MG tabletIndication s:Anxiety Take 1 tablet (40 mg) by mouth every morning 90 tablet 1 09/21/2023 03/19/20 24 Discontinued fluconazole (DIFLUCAN) 150 MG tabletIndication s:Vagina, candidiasis Take 1 tablet (150 mg) by mouth every 3 days for 2 doses 2 tablet 02/27/2024 03/02/20 24 metroNIDAZOLE (FLAGYL) 500 MG tabletIndication s:Bacterial vaginosis Take 1 tablet (500 mg) by mouth 2 times daily for 7 days 14 tablet 02/27/2024 03/06/20 24 Active Problems Patient Care Coordination No [...] available in ED consider consultation with ED Substance Abuse Therapist. Relevant Medical History (at time Care Plan [...] to initiation of Care Plan: 11 Total [facility] Hospital Admissions in 12 months prior to initiation of Care Plan: 0 (she has technically had 2 admissions due to related issues with OBGYN) Expected home rescue plan: Metoprolol 12.5mg PRN PCP: Marija Edgar APRN CNP - Family Medicine - [facility] Specialists: Dr. Galo Burrell - Cardiology - [facility] Cesar Dotson - Neurology [facility] Epilepsy Care Care Coordination: Has worked with Community Health Worker in past - ARACELIS Parker, Clinical Care Coordination - [facility] ([place], [place] and [place]) - Follow up plan after an ED visit: Marija Edgar APRN CNP - [facility] Medicine - [facility] Initiated: 2020 Problem Noted Date Diagnosed Date Neck pain 08/25/2022 Paroxysmal supraventricular tachycardia (H24) SVT (supraventricular tachycardia) (H24) 022 Encounter for pharmacogenetic testing 04/17/2021 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 JANENE (generalized anxiety disorder) 09/29/2020 Right ureteral stone 05/27/2020 Overview: Added automatically from request for surgery [id number] Left ureteral stone 05/27/2020 Overview: Added automatically from request for surgery [id number] Head ache 02/18/2020 Seizure 05/02/2019 Depressed 05/02/2019 Anxiety 05/02/2019 Tobacco abuse counseling 05/02/2019 Psoriasis 05/02/2019 Resolved Problems Problem Noted Date Diagnosed Date Resolved Date Lower back pain 08/25/2022 08/17/2023 Term 01/13/2021 10/11/2022 Encounter for triage in patient 12/09/2020 04/18/2023 Asthma 06/04/2020 02/07/2024 Encounters Date Type Department Care Team Description 03/19/2024 MyC Medical Advice [facility] Gastroenterology Clinic [address] 4th [place] [address] [facility] 03/18/2024 Refill [facility] [address] [phone] Esha Grimm PA-C Medication Refill 03/15/2024 10:40 AM CDT Therapy Visit [facility] Rehabilitation Services [address] [phone] Ingris Thompson, PT Neck pain (Primary Dx) 03/15/2024 Travel 03/13/2024 Travel 03/08/2024 11:00 AM CDT - 03/08/2024 11:59 PM CDT Hospital Encounter [facility] Specialty Care [address] [facility] [address] [place] [phone] Radha Lomeli APRN CNP SVT (supraventricular tachycardia) (H24) Discharge Disposition: Home or Self Care 03/08/2024 Travel 03/07/2024 Telephone [facility] [address] [facility] [address] [place] [phone] Carley Myles RN 03/06/2024 3:00 PM CDT Office Visit [facility] [address] [facility] [address] [place] [phone] Radha Lomeli APRN CNP SVT (supraventricular tachycardia) (H24) (Primary Dx); Palpitations 03/06/2024 Travel 03/06/2024 MyC Medical Advice [facility] Spine and Neurosurgery [address] [facility] 100 [place] [address] Ebony Cid APRN CNP 03/05/2024 MyC Medical Advice [facility] [address] [phone] Rebecca Moctezuma 03/05/2024 Telephone [facility] Gastroenterology [address] [phone] None Procedure (Cancel/Reschedule) 03/05/2024 Telephone [facility] Heart [address] [place] [phone] Radha Lomeli APRN CNP Call Back (Heart monitor for 14 or 30 days ) 03/03/2024 Travel 03/01/[address] [phone] Esha Grimm PA-C Letter for School/Work 02/28/2024 MyC Medical Advice [facility] [address] [phone] Rain Burnette RN 02/28/2024 Telephone [facility] Endoscopy [address] [place] [address] [place] [phone] Annabelle Wetzel, VJ Pt. Information/instruc tion (EGD ) 02/27/2024 10:35 AM CDT Office Visit [facility] Urgent Care [place] [address] [place] [phone] Nicole Garcia PA-C Vagina, candidiasis (Primary Dx); Bacterial vaginosis; Nasal congestion 02/27/2024 MyC Medical Advice [facility] Spine and Neurosurgery [address] [place] [address] [address] [place] [address] Ebony Cid APRN CNP 02/27/2024 Travel 02/07/2024 10:00 AM CDT Office Visit [address] [phone] Lauren Claudio PA-C Yeast infection of the vagina (Primary Dx); Bacterial vaginosis; Vaginal discharge; Screening examination for venereal disease; Chest tightness 02/07/2024 Travel 02/06/[address] [phone] Esha Grimm PA-C Symptoms (VAGINAL SYMPTOMS THAT PATIENT WOULD LIKE TO GET LAB ORDERS FOR ) 02/01/2024 MyC Medical Advice [facility] Neurology [facility] - [address], [address] [phone] Macy Pinedo RN 01/26/2024 12:50 PM CDT Therapy Visit [facility] Rehabilitation Services [place] [address] [place] [phone] Ebony Cid APRN CNP Clemensen, Chad, PT Chiari malformation type I (H); Neck pain 01/26/2024 Travel 01/23/2024 10:00 AM CDT Office Visit [facility] Neurology [facility] - [address], [address] [place] [phone] Juan Pablo Emmanuel MD Neck pain (Primary Dx); Paresthesia of arm; Chiari I malformation (H) 01/23/2024 Travel 01/23/2024 Telephone [facility] Neurosurgery [address] [facility] 100 [place] [phone] Ebony Cid APRN PATIENT SCHEDULER 01/22/2024 Travel 01/16/[address] [facility] [address] [place] [phone] Esha Grimm PA-C 01/11/2024 9:53 AM CDT - 01/11/2024 12:38 PM CDT Emergency [facility] Emergency Dept [address] [place] [phone] Jeffrey Whalen MD Dyspnea, unspecified type Discharge Disposition: Left Without Being Seen 01/11/2024 Travel 01/09/2024 Telephone [facility] Neurology Clinics - [address], [address] [place] [phone] Juan Pablo Emmanuel MD Appointment 01/09/2024 Telephone [facility]ine [facility] Neurosurgery [address] [facility] [address] [place] [address] Ebony Cid APRN PATIENT SCHEDULER Results (Cervical and brain MRIs) 01/09/2024 Travel 01/06/2024 10:53 AM CDT - 01/06/2024 11:59 PM CDT Hospital Encounter [facility] [address] [place] [phone] Ebony Cid APRN PATIENT SCHEDULER Chiari malformation type I (H); Numbness and tingling of upper extremity; Abnormal finding on MRI of brain Discharge Disposition: Home or Self Care 01/06/2024 Telephone [facility] Neurology Clinics - [address], [address] [place] [address] Juan Pablo Emmanuel MD Appointment 01/05/2024 1:40 PM CDT Office Visit [facility] Neurosurgery [address] [facility] [address] [place] [address] Ebony Cid APRN CNP Abnormal finding on MRI of brain (Primary Dx); Chiari malformation type I (H); Numbness and tingling of upper extremity; Neck pain 01/05/2024 Travel 01/02/2024 PRE VISIT [facility] Neurosurgery [address] [phone] Juan Pablo Emmanuel MD Pre Visit Planning - 2 Attempts (Pre charting) 12/26/2023 9:32 AM CDT - 12/26/2023 10:06 AM CDT Emergency [facility] Emergency Dept [address] [place] [phone] Augustus Kim MD Chest tightness Discharge Disposition: Home or Self Care 12/26/2023 Travel 12/26/[address] [facility] [address] [place] [phone] Esha Grimm PA-C Same Day Appointment (sore throat, body aches, headaches couple days) 12/23/2023 Travel from Last 3 Months Immunizations Name [...] you attend [facility] or hoahaoism services? 1 to 4 times [...] Answer Date Recorded PHQ-2 Score 1 02/07/2024 [facility] - Occupational [...] exercise at this level? 30 min 03/10/2023 Charlton Depression Scale Answer Date Recorded Charlton Depression Score 5 01/14/2021 Last EPDS Self [...] [facility] [address] [place] [phone] Ebony Cid, DINKEY OPERATOR [facility] [address] [place] [address] 03/27/2024 11:00 AM CDT [facility] [address] [facility] [address] [place] [phone] Jelena David, [address] [facility] [place] [address] 03/29/2024 3:30 PM CDT Therapy Visit [facility] [address] [facility] 160 [place] [phone] Ingris Thompson, PT [facility] [address] [facility] 106 [place] [address] 04/05/2024 2:10 PM CDT Therapy Visit [facility] [address] [place] [address] 160 [place] [phone] Ingris Thompson, PT [facility] [address] [facility] 106 [place] [address] 04/19/2024 2:45 PM CDT Office Visit [facility] [address]30 [place] [phone] Audrey Waite PA-C [address] [facility] [address], [facility] 603 [place] [address] 05/08/2024 1:30 PM CDT Office Visit [facility] [address] [place] [phone] Lauren Claudio PA-C [address] [place], [place] [phone] Esha Grimm PA-C [address] [place] [phone] 06/21/2024 2:00 PM PROCESSING ASSISTANT Office Visit [facility] Neurology Clinics - [place] [address] [facility], [address] [place] [address] [place] [address] [place] [address] Johnny Penn MD [address] [place] [address] Health Maintenance Due Date Last Done Comments [employer]ANNING 2000 Pneumococcal Vaccine: Pediatrics (0 to 5 Years) and At-Risk Patients (6 to 64 Years) (2 of 2 - PCV) 09/22/2022 09/22/2021, 2000, 2000, Additional history exists ANNUAL REVIEW OF HM ORDERS 03/10/202403/10, 09/22/2021, 06/24/2020 YEARLY PREVENTIVE VISIT 03/10/2024 03/10/20, 09/22/2021, 06/24/2020, Additional history exists COVID-19 Vaccine ( - 2022- season) 2024 INFLUENZA VACCINE (#1) 2024 , [...] Comments ZIO PATCH 8-14 DAYS INTERPRETATION Routine 03/15/2024 Palpitations WET PREPARATION Routine 02/27/2024 10:34 AM [...] SARS-COV2 PCR STAT 12/26/2023 9:02 AM CDT HEPATITIS C ANTIBODY Routine 12/21/2023 1:39 PM CDT Vaginal odor GYNECOLOGIC CYTOLOGY Routine 09/22/2021 3:14 PM CDT [...] PA-C LAB - URINE ORDERABL ES LABORATORY [facility] - [place] Lab [address] [facility] Lab (no room number, 1st floor of clinic) [place] [address], [facility] * (ABNORMAL) UA Macroscopic with reflex to Microscopic and Culture - Clinic Collect (02/27/2024 10:34AM CDT) Color Urine Yellow Colorless, Straw, Light Yellow, Yellow 02/27/2024 10:50 AM CDT [facility] Appearance Urine Clear Clear 02/27/20 24 10:50 AM CDT [facility] Glucose Urine Negative Negative mg/dL 02/27/2024 10:50 AM CDT [facility] Bilirubin Urine Negative Negative 4 10:50 AM CDT [facility] Ketones Urine Negative Negative mg/dL 02/27/2024 10:50 AM CDT [facility] Specific [place] Urine 1.020 1.003 - 1.035 02/27/2024 10:50 AM CDT [facility] Blood Urine Trace(A) Negative 02/27/2024 10:50 [...] 10:34 AM CDT 02/27/2024 10:41 AM CDT [employer] PA-C LAB - URINE ORDERABL ES [facility] LABORATORY [facility] Lab [address] [facility] Lab (no room number, 1st floor of [facility]) [place] [address] * (ABNORMAL) Wet prep - lab collect (02/27/2024 10:34 AM CDT) Only the most recent of2 resultswithin the time period is included. Trichomonas Absent Absent REINA 02/27/2024 11:00 AM CDT LABORATORY Yeast Present(A) Absent REINA 02/27/2024 11:00 AM CDT LABORATORY Clue Cells Present(A) Absent REINA 02/27/2024 11:00 AM CDT LABORATORY WBCs/high power field 3+(A) None REINA 02/27/2024 11:00 AM CDT LABORATORY Swab VAGINAL STRUCTURE / Unknown Non-blood Collection / Unknown 02/27/2024 10:34 AM CDT 02/27/2024 10:41 AM CDT [employer] PA-C LAB - MICRO GENERAL ORDERABLES [facility] LABORATORY [facility] Lab [address] [facility] Lab (no room number, 1st floor of clinic) [place] [address] * HIV Antigen Antibody Combo (02/07/2024 10:08 [...] - BLOOD ORDERA BLES Performing Organization Address City/[facility]/ZIP Co de Phone Number UU LABORATORY [facility] [place] [facility] [address] [place] [address], [address] * Treponema Abs w Reflex to RPR and Titer (02/07/2024 10:08 AM CDT) Treponema Antibody Total Nonreactive Nonreactive 02/07/2024 8:21 PM CDT SPECIALTY CORE/PROT/EN DO Blood BLOOD SPECIMEN / Unknown Venipuncture / Unknown 02/07/2024 10:08 AM CDT 02/07/2024 10:13 AM CDT Lauren Claudio PA-C LAB - BLOOD ORDERA BLES SPECIALTY CORE/PROT/ENDO Specialty Core/Prot/Endo [address] [facility], [address] * Chlamydia trachomatis/Neisseria gonorrhoeae by PCR - Clinic Collect (02/07/2024 10:08 AM CDT) Chlamydia Trachomatis Negative Negative 02/07/2024 6:31 PM CDT U[facility] IDD LABORATORY Comment: Negative for C. trachomatis rRNA by naturopathic doctor mediated amplification. A negative result by naturopathic doctor mediated amplification does not preclude the presence of infection because results are dependent on proper and adequate collection, absence of inhibitors and sufficient rRNA to be detected. Neisseria gonorrhoeae Negative Negative 02/07/2024 6:31 PM CDT [facility] Comment:Negative for N. gono rrhoeae rRNA by naturopathic doctor mediated amplification. A negative result by naturopathic doctor mediated amplification does not preclude the presence of C. trachomatis infection because results are dependent on proper and adequate collection, absence of inhibitors and sufficient rRNA to be detected. Swab VAGINAL STRUCTURE / Unknown Non-blood Collection / Unknown 02/07/2024 10:08 AM CDT 02/07/2024 10:13 AM CDT Lauren Claudio PA-C LAB - MICRO GENERA L ORDERABLES [facility] IDD LABORATORY [facility] Inf. Diseases Diag. Lab [address] [facility], [address] [place] [address] * D dimer, quantitative (02/07/2024 10:08 AM CDT) Only the most recent of2 resultswithin the time period is included. D-Dimer [...] LAB - BLOOD ORDERA BLES OX LABORATORY [facility] - [place] [facility] [address] Lab (no room number, 1st floor of clinic) [place] [address], [facility] [phone] * Basic metabolic panel (Ca, Cl, CO2, [...] LAB - BLOOD ORDERA BLES [facility] LABORATORY [facility] [place] [facility] [address] [facility] [address] [facility], [address] [place] [address], [facility] * HCG QUALitative (blood) (01/11/2024 11:10 AM CDT) hCG Serum Qualitative Negative Negative REINA 01/11/2024 11:57 AM CDT [facility] LABORATORY Comment:This test is for scr eening purposes. Results should be interpreted along with the clinical picture. Confirmation testing is available if warranted by ordering [id number], HCG Quantitative . Blood STRUCTURE OF RIGHT HAND / Unknown Venipuncture / Unknown 01/11/2024 11:10 AM CDT 01/11/2024 11:15 AM CDT Jeffrey Whalen MD LAB - BLOOD DONYA HERRERA [facility] LABORATORY [facility] Acute [facility] Lab [address] [facility] Lab (1st floor, no room number) [place] [address] * (ABNORMAL) CBC with platelets and [...] Whalen MD LAB - BLOOD ORDSia HERRERA [facility] Organization Address City/State/ZIP Co de Phone Number RH LABORATORY [facility] Acute Care Lab [address] Lab (1st floor, no room number) [place] [address], [facility] * Troponin T, High Sensitivity (01/11/2024 [...] Jeffrey Whalen MD [facility] Organization Address City/State/ZIP Co de Phone Number [facility] Acute Care Lab [address] [facility] Lab (1st floor, no room number) [place] [address] * EKG 12 lead (01/11/2024 9:55 AM CDT) Only the most recent of2 resultswithin the time period is included. Systolic Blood Pressure mmHg RADIOLOGY RESULTS Diastolic Blood Pressure mmHg RADIOLOGY RESULTS Ventricular Rate 60 BPM RAD IOLOGY RESULTS Atrial Rate 60 BPM RADIOLOG Y RESULTS NC Interval 146 ms RADIOLOG Y RESULTS QRS Duration 84 ms RADIOLO GY RESULTS QT 382 ms RADIOLOGY RESULTS QTc 382 ms RADIOLOGY RESULTS P [place] 61 degrees RADIOLOGY RESULTS R AXIS 70 degrees RADIOLOGY RESULTS T [place] 67 degrees RADIOLOGY RESULTS Interpretation ECG Sinus rhythm Normal ECG When compared with ECG of 26-DEC-2023 09:56, No significant change was found Unconfirmed report - interpretation of this ECG is computer generated - see medical record for final interpretation Confirmed by - EMERGENCY ROOM, PHYSICIAN ([id number]), technical writer and editor Saleem Gomez ([id number]) on 01/11/2024 12:31:03 PM RADIOLOGY RESULTS 01/11/2024 [...] MR BRAIN W/O and W CONTRAST LOCATION: [facility] DATE: 01/06/2024 INDICATION: numbness tingling both arms [...] MR BRAIN W/O and W CONTRAST LOCATION: [facility] DATE: 01/06/2024 INDICATION: numbness tingling both arms and chest, torso. Recheck [id number] and hx Chiari and right parietal abnormality, [...] at the right lateral aspect of the [id number] body. Ebony Cid APRN PATIENT SCHEDULER IMG MRI ORDERABLES * MR Brain w/o [...] MR BRAIN W/O and W CONTRAST LOCATION: [facility] DATE: 01/06/2024 INDICATION: numbness tingling both arms [...] MR BRAIN W/O and W CONTRAST LOCATION: [facility] DATE: 01/06/2024 INDICATION: numbness tingling both arms and chest, torso. Recheck [id number] and hx Chiari and right parietal abnormality, [...] at the right lateral aspect of the I8ziowbhzbz body. Ebony Cid DINKEY OPERATOR PATIENT SCHEDULER IMG MRI ORDERABLES * Symptomatic Influenza A/B, RSV, & SARS-CoV2 PCR (COVID-19) Nasopharyngeal (12/26/2023 9:02 AM CDT) [facility] Influenza A PCR Negative Negative 12/26/2023 [...] 9:02 AM CDT 12/26/2023 9:09 AM CDT [facility] LABORATORY - 12/26/2023 9:50 AM CDT Testing was performed using the Xpert Xpress CoV2/Flu/RSV Assay on the [employer] GeneXpert Instrument. This test should be ordered [...] management. This test was validated by the [facility]. These laboratories are certified under the Clinical Laboratory Improvement Amendments of 1988 (CLIA-88) as qualified to perform high complexity laboratory testing. Augustus Kim MD LAB - MICRO GENER AL ORDERABLES Performing Organization Address [facility]/ZIP Co de Phone Number [facility] [address] [facility] Lab (1st floor, no room number) [place] [address] * Group A Streptococcus PCR Throat Swab (12/26/2023 9:02 AM CDT) Pathologist [facility] Group A strep by PCR Not Detected Not Detected 12/26/2023 9:37 AM CDT LABORATORY Swab STRUCTURE OF ANTERIOR PORTION OF NECK / Unknown Non-blood Collection / Unknown 12/26/2023 9:02 AM CDT 12/26/2023 9:09 AM CDT [facility] LABORATORY - 12/26/2023 9:37 AM CDT The Xpert Xpress Strep A test, performed on the Moonfrye?? agreement24 avtal24 Systems, is a rapid, qualitative in vitro [...] MICRO GENER AL ORDERABLES Performing Organization Address [facility]/ZIP Co de Phone Number [facility] [address] [facility] ([facility], no room number) [place] [address] * Hepatitis C antibody (12/21/2023 1:39 PM CDT) Pathologist [facility] Hepatitis C Antibody Nonreactive Nonreactive 12/22/2023 2:27 [...] 1:39 PM CDT 12/21/2023 1:39 PM CDT Talishadimitry Diego GEEN PATIENT SCHEDULER LAB - BLOOD ORDERABL ES LABORATORY [facility] [place] [facility] [address] [facility], [address] [place] [address] * Pap screen reflex to HPV [...] component of this testing was completed at [facility] 09/25/2021 10:27 AM CDT SPECIALTY LABS Brushing CERVIX UTERI STRUCTURE / Unknown 09/22/2021 3:14 PM CDT 09/22/2021 3:48 PM CDT Mariaj MCCORMICK [facility] [address] [facility] [address], [address] [address], [facility] [phone] from Last 3 Months or Most Recently Relevant to Health Maintenance Advance Directives For more information, please contact: [phone] * Full Code (Latest Code Status on File) Date Activated Date Inactivated Comments 01/14/2021 7:36 AM 01/15/2021 6:05 PM All basic and advanced life-sustaining interventions are performed as appropriate Question Answer Comments Code status determined by: Discussion with patie nt/ legal decision maker Care Teams [employer] Manager Relationship Specialty Start Date End Date Esha Grimm PA-C [address] [place] [address] PCP - General Family Medicine 05/04/23 Diana Desir, [facility] [place] [address] [place] [address] Pharmacist Pharmacist 04/17/21 Rain Galaviz PA-C [address] [place] [address] [address] [place] [address] Physician Edge Inker Heels Dermatology 04/28/21 Tavia Wyatt MD [address] [place] [address] [address] [place] [address] Dermatology 07/14/21 Erica Farrell, ARLENE PATIENT SCHEDULER 6405 [facility] [address] [place] 990345 Nurse Practitioner Cardiovascular Disease 09/09/21 Rich Barrett MD 516 [facility] 9A [place], [place] 959605 Physician Ophthalmology 01/21/22 Neil Kent MD 500 [place], [place] 957105 Dermatology 02/24/22 Diana Desir, [facility] [place] 30[address] [place] [address] Assigned MTM Pharmacist 04/07/22 Livan Sharif MD [address] [place] 754775 Cardiovascular Disease 05/14/22 Catherine Cm MD [address] RAZO [facility] [place] 222805 Cardiovascular Disease 07/21/22 Valery Veronica, PA-C 909 [place], [place] 939205 Physician Edge Inker Heels Dermatology 07/21/22 Brea Quinn APRN PATIENT SCHEDULER 500 [place] [address] Nurse Practitioner Dermatology 09/21/22 Brea Quinn APRN PATIENT SCHEDULER 6401 [facility] [place] 274482 Assigned Surgical Provider 10/09/22 [place] [address] [place] [address] Assigned Musculoskeletal Provider 10/09/22 Alfonso Renteria MD 5775 [facility] DANNI 200 [place] [address] Assigned Neuroscience Provider 04/02/23 Lomeli Radha Stovall DINKEY OPERATOR PATIENT SCHEDULER [address] [place] 681795 Assigned Heart and Vascular Provider 05/28/23 Jelena David OD [address] [facility] [place] [address] MD Ophthalmology 06/15/23 Esha Grimm PA-C [address] [place] [address] Assigned PCP 07/16/23 Valery Veronica PA-C [address] [place] [address] 806755 Physician Edge Inker Heels Dermatology 09/19/23 Rey Tay MD [address] [place] [address] 965145 Gastroenterology 09/20/23 Rocky Zepeda DO [address] [place] [address] 319935 Physician Gastroenterology 09/20/23 Philip Dumont MD [address] [place] [address] 714625 Physician Ophthalmology 09/22/23 Meredith Carrera PA-C [address] [place] [address] [phone] Assigned Gastroenterology Provider 11/01/23 Neil Kent MD [address] [address] Dermatology 11/02/23 [place] [address] [address] Neurological Surgery 12/26/23 Audrey Waite, PA-C 500 [place] [address] Physician Edge Inker Heels Dermatology 02/28/24
--- OUTSIDE RECORDS SUMMARY | 2024-03-23 15:52 | XMS_ITS | Encounter Summary ---
Author Organization [place] Address [address] [place] [address] Care Team Providers Care Consumer Advocate Name Role Phone Thang Diana [place] [facility] Unavailable Rain Galaviz PA-C Unavailable Tavia Wyatt MD Unavailable Unavailable Erica Farrell APRN PHOTO SPECIALIST Unavailable Rich Barrett MD Unavailable Neil Kent MD Unavailable Diana Desir Stanislav [facility] Unavailable [phone] Livan Sharif MD Unavailable Catherine Cm MD Unavailable + Valery Veronica PA-C Unavailable [phone] Brea Quinn ELECTRODYNAMICIST PHOTO SPECIALIST Unavailable Brea Quinn ELECTRODYNAMICIST PHOTO SPECIALIST Unavailable [phone] Jose Francisco Johnson MD Unavailable Alfonso Renteria MD Unavailable + [phone] Esha Grimm PA-C Primary Care Provider Radha Lomeli ELECTRODYNAMICIST PHOTO SPECIALIST Unavailable [phone] Jelena David OD Unavailable [phone] Esha Grimm-C Unavailable [phone] Valery Veronica-C Unavailable Rey Tay MD Unavailable Duane Rocky DO Unavailable Philip Dumont MD Unavailable [phone] Meredith Carrera PA-C Unavailable [phone] Neil Kent MD Unavailable Juan Pablo Emmanuel MD Unavailable [phone] Audrey Waite PA-C Unavailable [phone] Reason for Visit * Reason Comments Medication Refill Encounter Details Date Type Department Care Team (Late st Contact Info) Description 03/18/[address] [address] Esha Grimm PA-C [id number] [place] [address] Medication Refill Social History Tobacco Use Types [...] do you attend chur or church services? 1 to 4 times [...] Answer Date Recorded PHQ-2 Score 1 02/07/2024 [facility] of Occupat ional Health [...] exercise at this level? 30 min 03/10/2023 [place] Depression Scale Answer Date Recorded [place] Depression Score 5 01/14/2021 Last EPDS Self [...] [facility] Spine and Neurosurgery [facility] [address] [place] [phone] Ebnoy Cid, ELECTRODYNAMICIST [facility] 500 [place] [address] 03/27/2024 11:00 AM CDT Office [facility] [place] 3305 [facility] [address] [place] [address] Jelena David, SONJA 3305 [facility] [place] [address] 03/29/2024 3:30 PM CDT Therapy Visit [facility] Rehabilitation Services [address] [place] [phone] Ingris Thompson, PT [facility] 516 [facility] 106 [place], [place] 487635 04/05/2024 2:10 PM CDT Therapy Visit [facility] Rehabilitation Services [place] [address] [facility] [address] [place] [phone] Ingris Thompson, PT [facility] 516 [facility] 106 [place], [place] 902505 04/19/2024 2:45 PM CDT Office Visit [address] [phone] Audrey Waite PA-C 420 [facility] [address], [facility] 603 [place], [place] 409915 05/08/2024 1:30 PM CDT Office Visit [facility] [address] [place] [address] Lauren Claudio PA-C 130[address] [place], [place] [phone] Esha Grimm PA-C [address] [place] [address] 06/21/2024 2:00 PM REFRIGERATOR CAR ICER Office Visit [facility] Neurology Clinics - [address], [address] [place] [address] [place] [address] [place], [place] [phone] Johnny Penn MD 0673 [facility] [place] [address] documented as of this encounter Visit Diagnoses Diagnosis Anxiety Anxiety state, unspecified documented in this encounter Additional Health Concerns Assessment Noted Time PHQ-9 Depression Total Score: 3 02/07/20 24 9:33 AM CDT documented as of this encounter Care Teams Consumer Advocate Relationship Specialty Start Date End Date Esha Grimm PA-C [address] [place] [address] PCP - General Family Medicine 05/04/23 Diana Desir, [facility] [address] [place] [address] Pharmacist Pharmacist 04/17/21 Rain Galaviz PA-C [address] [place] [address] [address] [place] [address] Physician Collection Advisor Dermatology 04/28/21 Tavia Wyatt MD [address] [place] [address] [address] [place] [address] Dermatology 07/14/21 Erica Farrell APRN PHOTO SPECIALIST 6405 [facility] [address] [place] [address] Nurse Practitioner Cardiovascular Disease 09/09/21 Rich Barrett MD 516 [facility] 9A [place], [place] 246415 Physician Ophthalmology 01/21/22 Neil Kent MD 500 [place], [place] 434585 Dermatology 02/24/22 Diana Desir, [facility] 3033 [place], [place] 365596 Assigned MTM Pharmacist 04/07/22 Livan Sharif MD [address] [facility] [address], [facility] [address] [place], [place] 468525 Cardiovascular Disease 05/14/22 Catherine Cm MD [address] [facility] [address] [place], [place] 321065 Cardiovascular Disease 07/21/22 Valery Veronica, PAUcheC 909 [place], [place] 718615 Physician Collection Advisor Dermatology 07/21/22 Brea Quinn APRN PHOTO SPECIALIST 500 [place], [place] 552745 Nurse Practitioner Dermatology 09/21/22 Brea Quinn APRN PHOTO SPECIALIST [address] [place] [address] 915062 Assigned Surgical Provider 10/09/22 [place] [address] [address] [facility] 300 [place] [address] Assigned Musculoskeletal Provider 10/09/22 Alfonso Renteria MD 5775 [facility] 200 [place], [place] 245186 Assigned Neuroscience Provider 04/02/23 Lomeli, Radha E, ELECTRODYNAMICIST PHOTO SPECIALIST [address] [place], [place] 525785 Assigned Heart and Vascular Provider 05/28/23 Frankie Jelena SONJA Garcia [address] [facility] [place] [address] MD Ophthalmology 06/15/23 Esha Grimm PA-C [address] [place] [phone] Assigned PCP 07/16/23 Valery Veronica PA-C [address] [place] [address] 683905 Physician Collection Advisor Dermatology 09/19/23 Rey Tay MD [address] [place] [address] 978375 Gastroenterology 09/20/23 Rocky Zepeda DO [address] [place] [address] 815425 Physician Gastroenterology 09/20/23 Philip Dumont MD [address] [place] [address] 585115 Physician Ophthalmology 09/22/23 Meredith Carrera PA-C [address] [place] [address] 765005 Assigned Gastroenterology Provider 11/01/23 Neil Kent MD [address] 717130 Dermatology 11/02/23 [place] [address] 244187 Neurological Surgery 12/26/23 Audrey Waite PA-C 500 [place] [address] Physician Collection Advisor Dermatology 02/28/24 documented as of this encounter
--- OUTSIDE RECORDS SUMMARY | 2024-03-23 15:52 | XMS_ITS | Encounter Summary ---
Author Organization [place] Address [address] [place] [address] Care Team Providers Care Engineering Executive Name Role Phone Thang Diana [place] [facility] Unavailable Rain Galaviz PA-C Unavailable [phone] Tavia Wyatt MD Unavailable Unavailable Erica Farrell APRN WIRE ROLLER Unavailable Rich Barrett MD Unavailable Neil Kent MD Unavailable Diana Desir Stanislav [facility] Unavailable [phone] Livan Sharif MD Unavailable Catherine Cm MD Unavailable + Valery Veronica PA-C Unavailable [phone] Brea Quinn CLINICAL PHYSICIAN ASSISTANT WIRE ROLLER Unavailable Brea Quinn CLINICAL PHYSICIAN ASSISTANT WIRE ROLLER Unavailable Jose Francisco Johnson MD Unavailable Alfonso Renteria MD Unavailable + [phone] Esha Grimm PA-C Primary Care Provider Radha Lomeli CLINICAL PHYSICIAN ASSISTANT WIRE ROLLER Unavailable [phone] Jelena David OD Unavailable Alfa Esha M PA-C Unavailable [phone] Valery Veronica PA-C Unavailable [phone] Rey Tay MD Unavailable Duane Rocky Unavailable Philip Dumont MD Unavailable [phone] Meredith Carrera PA-C Unavailable Neil Kent MD Unavailable Juan Pablo Emmanuel MD Unavailable Audrey Waite PA-C Unavailable [phone] Reason for Visit * Rehab Therapy Physical Therapy (Priority: 1-2 Weeks) - Pending Review Specialty Diagnoses / Procedures Referred By Qian mayers Referred To Contact Diagnoses Chiari malformation type I (H) Neck pain Ebony Cid APRN WIRE ROLLER 500 [place] [address] Referral ID Status Reason Start Date Expiration Date V isits Requested Visits Authorized [id number] Pending Review 01/05/2024 01/04/2025 1 1 Encounter Details Date Type Department Care Team (Latest Contact Info) Description 03/15/2024 10:40 AM CDT Therapy Visit [facility] [address] [place] [address] Ingris Thompson, PT [facility] 516 [facility] 106 [place] [address] Neck pain (Primary Dx) Social History Tobacco Use Types [...] Answer Date Recorded PHQ-2 Score 1 02/07/2024 [facility] [place] of Occupat ional Health - Occupational Stress [...] exercise at this level? 30 min 03/10/2023 [place] Depression Scale Answer Date Recorded [place] Depression Score 5 01/14/2021 Last EPDS Self [...] Office Visit [facility] Neurosurgery [address] [place] [address] Ebony Cid, ARLENE WIRE ROLLER 500 [place] [address] 03/27/2024 11:00 AM CDT Office Visit [facility] [place] [address] [facility] [address] [place] [phone] Jelena David, 3305 [facility] [address] [place] [address] 03/29/2024 3:30 PM CDT Therapy Visit [facility] [address] [place] [address] 160 [place] [phone] Ingris Thompson, PT [facility] [address] [place] [address] 106 [place], [place] 601595 04/05/2024 2:10 PM CDT Therapy Visit [facility] [address] [place] [phone] Ingris Thompson, PT [facility] [address] [place] [address] 106 [place] [address] 04/19/2024 2:45 PM CDT Office Visit [address] [phone] Audrey Waite PA-C 420 [facility] [address]385, [facility] 603 [place], [place] 254155 05/08/2024 1:30 PM CDT Office Visit [facility] [address] [place] [phone] Lauren Claudio PA-C [address] [place], [place] [phone] Esha Grimm PA-C [address] [place] [address] 06/21/2024 2:00 PM COLLOID MILL OPERATOR Office Visit [facility] [place] 6545 [facility], [address] [place] [phone] [place] [address] [place] [address] Johnny Penn MD [address] [place] 940595 documented as of this encounter Visit Diagnoses Diagnosis Neck pain- Primary Cervicalgia documented in this encounter Additional Health Concerns Assessment Noted Time PHQ-9 Depression Total Score: 3 02/07/20 24 9:33 AM CDT documented as of this encounter Care Teams Engineering Executive Relationship Specialty Start Date End Date Esha Grimm PA-C [address] [place] [phone] PCP - General Family Medicine 05/04/23 Diana Desir, [facility] 3033 [place] [address] Pharmacist Pharmacist 04/17/21 Rain Galaviz PA-C [address] [place] [address] [address] [place] [address] Physician Steel Sampler Dermatology 04/28/21 Tavia Wyatt MD [address] [place] [address] [address] [place] [address] Dermatology 07/14/21 Erica Farrell APRN WIRE ROLLER [address] [place] [address] Nurse Practitioner Cardiovascular Disease 09/09/21 Rich Barrett MD 516 [facility] 9A [place], [place] 154485 Physician Ophthalmology 01/21/22 Neil Kent MD 500 [place], [place] 729005 Dermatology 02/24/22 Diana Desir, [facility] 3033 [place], [place] 134756 Assigned [place] Pharmacist 04/07/22 Livan Sharif MD [address], [address] [place] 725715 Cardiovascular Disease 05/14/22 Catherine Cm MD 6405 [facility] [address] [place] 737285 Cardiovascular Disease 07/21/22 Valery Veronica, PA-C 909 [place], [place] 425585 Physician Steel Sampler Dermatology 07/21/22 Brea Quinn APRN WIRE ROLLER 500 [place], [place] 645475 Nurse Practitioner Dermatology 09/21/22 Brea Quinn APRN WIRE ROLLER 6401 [place] [address] Assigned Surgical Provider 10/09/22 [place] [address] [place] [address] 300 [place] [address] Assigned Musculoskeletal Provider 10/09/22 Alfonso Renteria MD [address] [facility] 200 [place], [place] 443636 Assigned Neuroscience Provider 04/02/23 Radha Lomeli APRN WIRE ROLLER 6405 [facility] [address]200 [place], [place] 558915 Assigned Heart and Vascular Provider 05/28/23 Jelena David OD 3305 [facility] [place] [address] MD Ophthalmology 06/15/23 Esha Grimm PA-C [address] [place] [address]-62917283 Assigned PCP 07/16/23 Valery Veronica PA-C [address] [place] [address] 088805 Physician Steel Sampler Dermatology 09/19/23 Rey Tay MD 9 [place], [place] 342005 Gastroenterology 09/20/23 Rocky Zepeda DO [address] [place] [address] 286695 Physician Gastroenterology 09/20/23 Philip Dumont MD [address] [place] [address] 520975 Physician Ophthalmology 09/22/23 Meredith Carrera PA-C [address] [place] [address] Assigned Gastroenterology Provider 11/01/23 Neil Kent MD [address] [place] [address] 915790 Dermatology 11/02/23 [place] [address] [place] [address] [address] Neurological Surgery 12/26/23 Audrey Waite PA-C [address] [place] [address] Physician Steel Sampler Dermatology 02/28/24 documented as of this encounter
--- OUTSIDE RECORDS SUMMARY | 2024-03-23 15:52 | XMS_ITS | Encounter Summary ---
Author Organization [place] Address [address] [place] [address] Care Team Providers Care Superintendent Drilling And Production Name Role Phone Thang Diana [place] [facility] Unavailable Rain Galaviz PA-C Unavailable [phone] Tavia Wyatt MD Unavailable Unavailable Erica Farrell APRN FISH HATCHERY SPECIALIST Unavailable Rich Barrett MD Unavailable Neil Kent MD Unavailable Diana Desir Stanislav [facility] Unavailable [phone] Livan Sharif MD Unavailable Catherine Cm MD Unavailable + Valery Veronica PA-C Unavailable [phone] Brea Quinn IT SERVICE CONTINUITY SUPERVISOR FISH HATCHERY SPECIALIST Unavailable [phone] Brea Quinn IT SERVICE CONTINUITY SUPERVISOR FISH HATCHERY SPECIALIST Unavailable Jose Francisco Johnson MD Unavailable Alfonso Renteria MD Unavailable + [phone] Esha Grimm PA-C Primary Care Provider [phone] Radha Lomeli IT SERVICE CONTINUITY SUPERVISOR FISH HATCHERY SPECIALIST Unavailable [phone] Jelena David OD Unavailable Esha Grimm PA-C Unavailable [phone] Valery Veronica PA-C Unavailable [phone] Rey Tay MD Unavailable Rocky Zepeda DO Unavailable Philip Dumont MD Unavailable [phone] Meredith Carrera PA-C Unavailable [phone] Neil Kent MD Unavailable Juan Pablo Emmanuel MD Unavailable [phone] Audrey Waite PA-C Unavailable [phone] Encounter Details Date Type Department Care Team (Latest Contact Info) Description 03/15/2024 Travel Social History Tobacco Use Types Packs/Day [...] 03/10/2023 How often do you attend [facility] or pentecostal services? 1 to 4 [...] Date Recorded PHQ-2 Score 1 02/07/2024 [facility] - Occupational Stress Questionnaire [...] at this level? 30 min 03/10/2023 [place] Depression Scale Answer Date Recorded [place] Depression Score 5 01/14/2021 Last EPDS Self [...] [facility]ine [facility] Neurosurgery [address] [place] [address] 100 [place] [address] Ebony Cid, IT SERVICE CONTINUITY SUPERVISOR [facility] 500 [place], [place] 860655 03/27/2024 11:00 AM CDT Office Visit [facility] 3305 [facility] [address] [place] [phone] Jelena David, 3305 [facility] [place] [address] 03/29/2024 3:30 PM CDT Therapy Visit [facility] Rehabilitation [facility] [address] [place] [address] [address] [place] [address] Ingris Thompson, PT [facility] 6 [facility] 106 [place] [address] 04/05/2024 2:10 PM CDT Therapy Visit [facility] 77885 [facility] [address] [place] [address] Ingris Thompson, PT [facility] [address] [facility] 106 [place], [place] 263695 04/19/2024 2:45 PM CDT Office Visit [facility] 830 [place] [phone] Audrey Waite PA-C [address], [facility] 603 [place] [address] 05/08/2024 1:30 PM CDT Office Visit [facility] [address] [place] [phone] Lauren Claudio PA-C [address] [place], [place] [phone] Esha Grimm PA-C [address] [place] [phone] 06/21/2024 2:00 PM SYSTEM ADMINISTRATION MANAGER Office Visit [facility] Neurology Clinics - [address], [address] [place] [phone] [place] [address] [place], [place] [phone] Johnny Penn MD [address] [place] [address] documented as of this encounter Visit Diagnoses Not on filedocumented in this encounter Additional Health Concerns Assessment Noted Time PHQ-9 Depression Total Score: 3 02/07/20 24 9:33 AM CDT documented as of this encounter Care Teams Superintendent Drilling And Production Relationship Specialty Start Date End Date Esha Grimm PA-C [address] [place] [address] PCP - General Family Medicine 05/04/23 Diana Desir, [facility] [address] [place] [address] Pharmacist Pharmacist 04/17/21 Rain Galaviz PA-C [address] [place] [address] [address] [place] [address] Physician Private Watchman Dermatology 04/28/21 Tavia Wyatt MD [address] [place] [address] [place] [address] Dermatology 07/14/21 Erica Farrell APRN FISH HATCHERY SPECIALIST [address] [place] 370575 Nurse Practitioner Cardiovascular Disease 09/09/21 Rich Barrett MD [address] 793285 Physician Ophthalmology 01/21/22 Neil Kent MD [address] [place] [address] 828625 Dermatology 02/24/22 Diana Desir, [facility] [address] [place] [address] Assigned MTM Pharmacist 04/07/22 Livan Sharif MD [address] [facility] [address] [place] [address] Cardiovascular Disease 05/14/22 Catherine Cm MD 6405 [facility] [address] [place] [address] Cardiovascular Disease 07/21/22 Valery Veronica, PA-C 909 [place] [address] Physician Private Watchman Dermatology 07/21/22 Brea Quinn APRN FISH HATCHERY SPECIALIST [address] [place] [address] Nurse Practitioner Dermatology 09/21/22 Brea Quinn APRN FISH HATCHERY SPECIALIST 6401 [place] [address] Assigned Surgical Provider 10/09/22 [place] [address] [place] [address] Assigned Musculoskeletal Provider 10/09/22 Alfonso Renteria MD 5775 [facility] 200 [place] [address] Assigned Neuroscience Provider 04/02/23 Radha Lomeli APRN FISH HATCHERY SPECIALIST 6405 [place] 9821800 [place] 171025 Assigned Heart and Vascular Provider 05/28/23 Jelena David OD 3305 [facility] [place] [address] MD Ophthalmology 06/15/23 Esha Grimm PA-C [address] [place] [phone] Assigned PCP 07/16/23 Valery Veronica PA-C [address] [place] [address] 371795 Physician Private Watchman Dermatology 09/19/23 Rey Tay MD [address] [place] [address] 410005 MD Gastroenterology 09/20/23 Rocky Zepeda DO [address] [place] [address] 331695 Physician Gastroenterology 09/20/23 Philip Dumont MD [address] [place] [address] 260635 Physician Ophthalmology 09/22/23 Meredith Carrera PA-C [address] [place] [address] 505835 Assigned Gastroenterology Provider 11/01/23 Neil Kent MD [address] [place] [address] Dermatology 11/02/23 [place] [address] [place] [address] Neurological Surgery 12/26/23 Audrey Waite PA-C 500 [place] [address] Physician Private Watchman Dermatology 02/28/24 documented as of this encounter
--- OUTSIDE RECORDS SUMMARY | 2024-03-23 15:52 | XMS_ITS | Referral Summary ---
Author Organization [facility] Address [address] [place] [address] Care Team Providers Care Hand Coke Drawer Name Role Phone Thang Diana [place] [facility] Unavailable [phone] Rain Galaviz PA-C Unavailable Tavia Wyatt MD Unavailable Unavailable Erica Farrell DIAL MOUNTER RETAIL SALES LEAD Unavailable Rich Barrett MD Unavailable Neil Kent MD Unavailable Diana Desir [facility] Unavailable [phone] Livan Sharif MD Unavailable Catherine Cm MD Unavailable + Valery Veronica PA-C Unavailable [phone] Brea Quinn DIAL MOUNTER RETAIL SALES LEAD Unavailable Brea Quinn DIAL MOUNTER RETAIL SALES LEAD Unavailable [phone] Jose Francisco Johnson MD Unavailable Alfonso Renteria MD Unavailable + [phone] Esha Grimm PA-C Primary Care Provider [phone] Radha Lomeli DIAL MOUNTER RETAIL SALES LEAD Unavailable [phone] Jelena David OD Unavailable [phone] Esha Grimm-C Unavailable [phone] Valery Veronica PA-C Unavailable Rey Tay MD Unavailable Duane Rocky DO Unavailable Philip Dumont MD Unavailable Meredith Carrera PA-C Unavailable Neil [place] MD Unavailable Juan Pablo Emmanuel MD Unavailable Audrey Waite PA-C Unavailable Encounters Date Type Department Care Team Description 03/19/2024 MyC Medical Advice [facility] Gastroenterology Clinic [address] [place] [phone] [facility] 03/18/[address] [phone] Esha Grimm PA-C Medication Refill 03/15/2024 Travel 03/15/2024 10:40 AM CDT Therapy Visit [facility] Rehabilitation Services [address] [place] [phone] Ingris Thompson, PT Neck pain (Primary Dx) 03/13/2024 Travel 03/08/2024 Travel 03/08/2024 11:00 AM CDT - 03/08/2024 11:59 PM CDT Hospital Encounter [facility] Specialty Care [address] [facility] [address] [place] [phone] Radha Lomeli APRN CNP SVT (supraventricular tachycardia) (H24) Discharge Disposition: Home or Self Care 03/07/2024 Telephone [facility] Heart [facility] [address] [facility] [address] [address] [place] [address] Carley Myles RN 03/06/2024 Travel 03/06/2024 MyC Medical Advice [facility] Spine and Neurosurgery [address] [facility] [address] [place] [phone] Ebony Cid APRN CNP 03/06/2024 3:00 PM CDT Office Visit [facility] Heart [facility] [address] [place] [phone] Radha Lomeli APRN RETAIL SALES LEAD SVT (supraventricular tachycardia) (H24) (Primary Dx); Palpitations 03/05/2024 MyC Medical Advice [facility] Gastroenterology Clinic [place] [address] [place] [address] 4th [place] [phone] Rebecca Moctezuma 03/05/2024 Telephone [facility] Gastroenterology [address] [phone] None Procedure (Cancel/Reschedule) 03/05/2024 Telephone [facility] Heart [facility] [address] [facility] [address] [place] [phone] Radha Lomeli APRN RETAIL SALES LEAD Call Back (Heart monitor for 14 or 30 days ) 03/03/2024 Travel 03/01/2024 Telephone [facility] [address] [place] [phone] Esha Grimm, PAUcheC Letter for School/Work 02/28/2024 MyC Medical Advice [facility] Gastroenterology [facility] [place] [address] [place] [phone] Rain Burnette RN 02/28/2024 Telephone [facility] Endoscopy 500 [place] [phone] Annabelle Wetzel RN Pt. Information/instruc tion (EGD ) 02/27/2024 MyC Medical Advice [facility] Spine and Neurosurgery [address] [facility] [address] [place] [phone] Ebony Cid APRN CNP 02/27/2024 Travel 02/27/2024 10:35 AM CDT Office Visit [facility] Urgent Care [place] [address] [place] [phone] Nicole Garcia PA-C Vagina, candidiasis (Primary Dx); Bacterial vaginosis; Nasal congestion 02/07/2024 Travel 02/07/2024 10:00 AM CDT Office Visit [address] [phone] Lauren Claudio PA-C Yeast infection of the vagina (Primary Dx); Bacterial vaginosis; Vaginal discharge; Screening examination for venereal disease; Chest tightness 02/06/[address] [phone] Esha Grimm PA-C Symptoms (VAGINAL SYMPTOMS THAT PATIENT WOULD LIKE TO GET LAB ORDERS FOR ) 02/01/2024 MyC Medical Advice [facility] Neurology Clinics - [address], [address] [place] [phone] Macy Pinedo RN 01/26/2024 Travel 01/26/2024 12:50 PM CDT Therapy Visit [facility] Rehabilitation Services [place] [address] [place] [phone] Ebony Cid APRN CNP Clemensen, Chad, PT Chiari malformation type I (H); Neck pain 01/23/2024 Travel 01/23/2024 Telephone [facility] Spine and Neurosurgery [address] [place] [address] [address] [place] [phone] Ebony Cid APRN CNP 01/23/2024 10:00 AM CDT Office Visit [facility] Neurology Clinics - [address], [address] [place] [phone] Juan Pablo Emmanuel MD Neck pain (Primary Dx); Paresthesia of arm; Chiari I malformation (H) 01/22/2024 Travel 01/16/2024 Telephone [facility] [address] [place] [phone] Esha Grimm PA-C 01/11/2024 Travel 01/11/2024 9:53 AM CDT - 01/11/2024 12:38 PM CDT Emergency [facility] Emergency Dept [address] [place] [phone] Jeffrey Whalen MD Dyspnea, unspecified type Discharge Disposition: Left Without Being Seen 01/09/2024 Telephone [facility] Neurology Clinics - [address], [address] [phone] Juan Pablo Emmanuel MD Appointment 01/09/2024 Telephone [facility] Spine and Neurosurgery [address] [place] [phone] Ebony Cid APRN RETAIL SALES LEAD Results (Cervical and brain MRIs) 01/09/2024 Travel 01/06/2024 Telephone [facility] Neurology Clinics - [address], [address] [phone] Juan Pablo Emmanuel MD Appointment 01/06/2024 10:53 AM CDT - 01/06/2024 11:59 PM CDT Hospital Encounter [facility] [address] [place] [address] Ebony Cid APRN RETAIL SALES LEAD Chiari malformation type I (H); Numbness and tingling of upper extremity; Abnormal finding on MRI of brain Discharge Disposition: Home or Self Care 01/05/2024 Travel 01/05/2024 1:40 PM CDT Office Visit [facility] Spine and Neurosurgery [address] [facility] 100 [place] [address] Ebony Cid APRN RETAIL SALES LEAD Abnormal finding on MRI of brain (Primary Dx); Chiari malformation type I (H); Numbness and tingling of upper extremity; Neck pain 01/02/2024 PRE VISIT [facility] Neurosurgery Clinic [place] [address] [place] [phone] Juan Pablo Emmanuel MD Pre Visit Planning - 2 Attempts (Pre charting) 12/26/2023 Travel 12/26/2023 9:32 AM CDT - 12/26/2023 10:06 AM CDT Emergency [facility] Emergency Dept [address] [place] [phone] Augustus Kim MD Chest tightness Discharge Disposition: Home or Self Care 12/26/[address] [phone] Esha Grimm PA-C Same Day Appointment (sore throat, body aches, headaches couple days) 12/23/2023 Travel from Last 3 Months Allergies Active [...] available in ED consider consultation with ED Mortgage Servicing Specialist. Relevant Medical History (at time Care Plan [...] to initiation of Care Plan: 11 Total [facility] Hospital Admissions in 12 months prior to initiation of Care Plan: 0 (she has technically had 2 admissions due to related issues with OBGYN) Expected home rescue plan: Metoprolol 12.5mg PRN PCP: Marija Edgar APRN CNP - Family Medicine - [facility] Specialists: Dr. Galo Burrell - Cardiology - [facility] Heart Clinic Cesar Dotson - Neurology - [facility] Epilepsy Care Care Coordination: Has worked with Community Health Worker in past - ARACELIS Parker, Clinical Care Coordination - [facility] ([place], [place] and [place]) - Follow up plan after an ED visit: Marija Edgar APRN CNP - [facility] Initiated: 2020 Problem Noted Date Diagnosed Date Neck pain 08/25/2022 Paroxysmal supraventricular tachycardia (H24) SVT (supraventricular tachycardia) (H24) 022 Encounter for pharmacogenetic testing 04/17/2021 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 30 min 03/10/2023 [place] Depression Scale Answer Date Recorded [place] Depression Score 5 01/14/2021 Last EPDS Self [...] 03/26/2024 11:20 AM CDT Office Visit [facility] Spine and Neurosurgery [address] [place] [phone] Ebony Cid, DIAL MOUNTER RETAIL SALES LEAD [address] [place] [address] 03/27/2024 11:00 AM CDT Office Visit [facility] [place] [address] [facility] [address] [place] [phone] Jelena David, [address] [facility] [place] [address] 03/29/2024 3:30 PM CDT Therapy Visit [facility] [address] [place] [address] 160 [place] [phone] Ingris Thompson, PT [facility] [address] [place] [address] 04/05/2024 2:10 PM CDT Therapy Visit [facility] [address] [facility] [address] [place] [phone] Ingris Thompson, PT [facility] [address] [place] [address] 106 [place], [place] 9[address] 04/19/2024 2:45 PM CDT Office Visit [facility] [address] [place] [phone] Audrey Waite PA-C [address] [facility] B385, [facility] 603 [place] [address] 05/08/2024 1:30 PM CDT Office Visit [facility] [address] [place] [phone] Lauren Claudio PA-C [address] [place] [address] Esha Grimm PA-C [address] [facility] [place] [place] [phone] 06/21/2024 2:00 PM ACCESS CLINICIAN Office Visit [facility] Neurology Clinics - [place] [address] [facility], [address] [place] [phone] [place] [address] [place] [address] Johnny Penn MD [address] [facility] [address] Procedures Procedure Name Priority Date/Time Associated Diagnosis [...] PA-C LAB - URINE ORDERABL ES LABORATORY [facility] [address] [facility] Lab (no room number, 1st floor of clinic) [place] [address], [facility] * (ABNORMAL) [...] 02/27/2024 10:50 AM CDT LV LABORATORY Specific [place] Urine 1.020 1.003 - 1.035 02/27/2024 10:50 [...] 10:34 AM CDT 02/27/2024 10:41 AM CDT [employer] PA-C LAB - URINE ORDERABL ES LABORATORY [facility] [address] [facility] Lab (no room number, 1st floor of clinic) [place] [address] * (ABNORMAL) Wet prep - lab [...] 10:34 AM CDT 02/27/2024 10:41 AM CDT [employer]-C LAB - MICRO GENERAL ORDERABLES LV LABORATORY [facility] [address] [facility] Lab (no room number, 1st floor of clinic) [place] [address] * HIV Antigen Antibody Combo (02/07/2024 10:08 [...] 10:08 AM CDT 02/07/2024 10:13 AM CDT Lauern Claudio PA-C LAB - BLOOD ORDERA BLES UU LABORATORY [facility] [address] [place] [address], [address] * Treponema Abs w Reflex to RPR and Titer (02/07/2024 10:08 AM CDT) Pathologist [facility] Treponema Antibody Total Nonreactive Nonreactive 02/07/2024 8:21 PM CDT SPECIALTY CORE/PROT/EN DO Blood BLOOD SPECIMEN / Unknown Venipuncture / Unknown 02/07/2024 10:08 AM CDT 02/07/2024 10:13 AM CDT Lauren Claudio PA-C LAB - BLOOD ORDERA BLES SPECIALTY CORE/PROT/ENDO Specialty Core/Prot/Endo [address] [facility], Room [address] * Chlamydia trachomatis/Neisseria gonorrhoeae by PCR - Clinic Collect (02/07/2024 10:08 AM CDT) Pathologist [facility] Chlamydia Trachomatis Negative Negative 02/07/2024 6:31 PM CDT UU IDD LABORATORY Comment: Negative for C. trachomatis rRNA by brazing furnace operator mediated amplification. A negative result by brazing furnace operator mediated amplification does not preclude the presence of infection because results are dependent on proper and adequate collection, absence of inhibitors and sufficient rRNA to be detected. Neisseria gonorrhoeae Negative Negative 02/07/2024 6:31 PM CDT [facility] IDD LABORATORY Comment:Negative for N. gono rrhoeae rRNA by brazing furnace operator mediated amplification. A negative result by brazing furnace operator mediated amplification does not preclude the presence of C. trachomatis infection because results are dependent on proper and adequate collection, absence of inhibitors and sufficient rRNA to be detected. Swab VAGINAL STRUCTURE / Unknown Non-blood Collection / Unknown 02/07/2024 10:08 AM CDT 02/07/2024 10:13 AM CDT Lauren Claudoi PA-C LAB - MICRO GENERA L ORDERABLES UU IDD LABORATORY [facility] Inf. Diseases Diag. Lab 500 [facility], [address] [place] [address] * D dimer, quantitative (02/07/2024 10:08 AM CDT) Only the most recent of2 resultswithin the time period is included. [facility] D-Dimer Quantitative <0.27 0.00 - 0.50 ug/mL [...] LAB - BLOOD ORDERA BLES OX LABORATORY [facility] Clinic - [place] [facility] [address] Lab (no room number, 1st floor of clinic) [place] [address], [facility] [phone] * Basic metabolic panel (Ca, Cl, CO2, [...] LAB - BLOOD ORDERA BLES UU LABORATORY [facility] [place] [facility] [address] [facility] [address] [facility], Room [address] [place] [address], [facility] * HCG QUALitative (blood) (01/11/2024 11:10 AM CDT) hCG Serum Qualitative Negative Negative REINA 01/11/2024 11:57 AM CDT RH LABORATORY Comment:This test is for scr eening purposes. Results should be interpreted along with the clinical picture. Confirmation testing is available if warranted by ordering [id number], HCG Quantitative . Blood STRUCTURE OF RIGHT HAND / Unknown Venipuncture / Unknown 01/11/2024 11:10 AM CDT 01/11/2024 11:15 AM CDT Jeffrey Whalen MD LAB - BLOOD DONYA HERRERA RH LABORATORY [facility] Acute Care Lab [address] [facility] Lab (1st floor, no room number) [place] [address] * (ABNORMAL) CBC with platelets and [...] Whalen MD LAB - BLOOD ORDE SHARON [facility] Organization Address City/State/ZIP Co de Phone Number RH LABORATORY [facility] Acute Care Lab [address] Lab (1st floor, no room number) [place] [address], [facility] * Troponin T, High Sensitivity (01/11/2024 [...] Whalen MD LAB - BLOOD ORDE SHARON [facility] Organization Address City/State/ZIP Co de Phone Number [facility] Acute Care Lab [address] [facility] Lab (1st floor, no room number) [place] [address], [facility] * EKG 12 lead (01/11/2024 9:55 AM CDT) Only the most recent of2 resultswithin the time period is included. Pathologist [facility] Systolic Blood Pressure mmHg RADIOLOGY RESULTS Diastolic Blood Pressure mmHg RADIOLOGY RESULTS Ventricular Rate 60 BPM RAD IOLOGY RESULTS Atrial Rate 60 BPM RADIOLOG Y RESULTS [place] Interval 146 ms RADIOLOG Y RESULTS QRS Duration 84 ms RADIOLO GY RESULTS QT 382 ms RADIOLOGY RESULTS QTc 382 ms RADIOLOGY RESULTS P [place] 61 degrees RADIOLOGY RESULTS R AXIS 70 degrees RADIOLOGY RESULTS T [place] 67 degrees RADIOLOGY RESULTS Interpretation ECG Sinus rhythm Normal ECG When compared with ECG of 26-DEC-2023 09:56, No significant change was found Unconfirmed report - interpretation of this ECG is computer generated - see medical record for final interpretation Confirmed by - EMERGENCY ROOM, PHYSICIAN ([place]), health editor Saleem Gomez ([id number]) on 01/11/2024 12:31:03 PM RADIOLOGY RESULTS 01/11/2024 [...] MR BRAIN W/O and W CONTRAST LOCATION: [facility] [facility] DATE: 01/06/2024 INDICATION: numbness tingling both [...] MR BRAIN W/O and W CONTRAST LOCATION: [facility] DATE: 01/06/2024 INDICATION: numbness tingling both arms and chest, torso. Recheck P5hoscxa and hx Chiari and right parietal abnormality, [...] at the right lateral aspect of the O0zyepeawvj body. Ebony Cid APRN RETAIL SALES LEAD IMG MRI ORDERABLES * MR Brain w/o [...] MR BRAIN W/O and W CONTRAST LOCATION: [facility] DATE: 01/06/2024 INDICATION: numbness tingling both [...] MR BRAIN W/O and W CONTRAST LOCATION: [facility] DATE: 01/06/2024 INDICATION: numbness tingling both arms and chest, torso. Recheck M7jqexvo and hx Chiari and right parietal abnormality, [...] at the right lateral aspect of the P9nfpxsnrkx body. Ebony Cid DIAL MOUNTER RETAIL SALES LEAD IMG MRI ORDERABLES * Symptomatic Influenza A/B, RSV, & SARS-CoV2 PCR (COVID-19) Nasopharyngeal (12/26/2023 9:02 AM CDT) [facility] Influenza A PCR Negative Negative 12/26/2023 [...] 9:02 AM CDT 12/26/2023 9:[address] [facility] LABORATORY - 12/26/2023 9:50 AM CDT Testing was performed using the Xpert Xpress CoV2/Flu/RSV Assay on the [employer] GeneXpert Instrument. This test should be ordered [...] management. This test was validated by the [facility]. These laboratories are certified under the Clinical Laboratory Improvement Amendments of 1988 (CLIA-88) as qualified to perform high complexity laboratory testing. Augustus Kim MD LAB - MICRO GENER AL ORDERABLES Performing Organization Address [facility] Co de Phone Number [facility] Care Lab [address] [facility] Lab (1st floor, no room number) [place] [phone] [place] [address] * Group A Streptococcus PCR Throat Swab (12/26/2023 9:02 AM CDT) Group A strep by PCR Not Detected Not Detected 12/26/2023 9:37 AM CDT LABORATORY Swab STRUCTURE OF ANTERIOR PORTION OF NECK / Unknown Non-blood Collection / Unknown 12/26/2023 9:02 AM CDT 12/26/2023 9:09 AM CDT Narrative LABORATORY - 12/26/2023 9:37 AM CDT The Xpert Xpress Strep A test, performed on the [employer], is a rapid, qualitative in vitro [...] MICRO GENER AL ORDERABLES Performing Organization Address [facility] Co de Phone Number [facility] Lab [address] [facility] (1st floor, no room number) [place] [address] * Hepatitis C antibody (12/21/2023 1:39 PM CDT) Hepatitis C Antibody Nonreactive Nonreactive 12/22/2023 2:27 [...] 12/21/2023 1:39 PM CDT Helen Cortez APRN RETAIL SALES LEAD LAB - BLOOD ORDERABL ES LABORATORY [facility] [address] [facility], [address] [phone] * Pap screen reflex to HPV [...] component of this testing was completed at [facility] 09/25/2021 10:27 AM T SPECIALTY LABS Brushing CERVIX UTERI STRUCTURE / Unknown 09/22/2021 3:14 PM CDT 09/22/2021 3:48 PM CDT Marija MCCORMICK [facility] SPECIALTY LABS [facility] Specialty Lab 500 [facility], Room [address] [place] [address], [facility] [phone] from Last 3 Months or Most Recently Relevant to Health Maintenance Advance Directives For more information, please contact: [phone] * Full Code (Latest Code Status on File) Date Activated Date Inactivated Comments 01/14/2021 7:36 AM 01/15/2021 6:05 PM All basic and advanced life-sustaining interventions are performed as appropriate Question Answer Comments Code status determined by: Discussion with patie nt/ legal decision maker Care Teams Hand Coke Drawer Relationship Specialty Start Date End Date Esha Grimm PA-C [address] [place] [phone] PCP - General Family Medicine 05/04/23 Diana Desir, [facility] [address] [place], [place] [address] Pharmacist Pharmacist 04/17/21 Rain Galaviz PA-C [address] [place] [address] [address] [facility] [place] [address] Physician Allergist/Immunologist Dermatology 04/28/21 Tavia Wyatt MD [address] [place] [address] [address] [facility] [place] [address] Dermatology 07/14/21 Erica Farrell APRN RETAIL SALES LEAD [address] [facility] [place] 644745 Nurse Practitioner Cardiovascular Disease 09/09/21 Rich Barrett MD [address] [address] Physician Ophthalmology 01/21/22 Neil Kent MD [address] [place], [place] 5[address]625 Dermatology 02/24/22 Diana Desir, [facility] [address] [place], [place] 8[address] Assigned MTM Pharmacist 04/07/22 Livan Sharif MD [address] [place] [address] [place] 320135 Cardiovascular Disease 05/14/22 Catherine Cm MD [address] [facility] [place] [address] Cardiovascular Disease 07/21/22 Valery Veronica, PA-C [address] [place], [place] 8718[address] Physician Allergist/Immunologist Dermatology 07/21/22 Brea Quinn APRN RETAIL SALES LEAD 500 [place] [address] Nurse Practitioner Dermatology 09/21/22 Brea Quinn APRN RETAIL SALES LEAD [facility] [place] [address] Assigned Surgical Provider 10/09/22 [place] [address] [place] [address] Assigned Musculoskeletal Provider 10/09/22 Alfonso Renteria MD [address] [facility] [address] [place] [address] Assigned Neuroscience Provider 04/02/23 Armani Radha ARLENE Stovall RETAIL SALES LEAD [address] [facility] [address] [place] [address] Assigned Heart and Vascular Provider 05/28/23 Jelena David OD [address] [facility] [place] [address] MD Ophthalmology 06/15/23 Esha Grimm PA-C [address] [place] [phone] Assigned PCP 07/16/23 Valery Veronica PA-C [address] [place] [address] 059345 Physician Allergist/Immunologist Dermatology 09/19/23 Rey Tay MD [address] [place] [address] 579345 Gastroenterology 09/20/23 Rocky Zepeda DO [address] [place] [address] Physician Gastroenterology 09/20/23 Philip Dumont MD [address] [place] [address] Physician Ophthalmology 09/22/23 Meredith Carrera PA-C [address] [place] [address] Assigned Gastroenterology Provider 11/01/23 Neil Kent MD [address] [address] Dermatology 11/02/23 [place] [address] [address] Neurological Surgery 12/26/23 Audrey Waite, PA-C [address] [place], [place] [address] Physician Allergist/Immunologist Dermatology 02/28/24
--- OUTSIDE RECORDS SUMMARY | 2024-03-23 15:52 | XMS_ITS | Encounter Summary ---
Author Organization [place] Address [address] [place] [address] Care Team Providers Care Outbound Sales Agent Name Role Phone Thang Diana [place] [facility] Unavailable [phone] Rain Galaviz PA-C Unavailable Tavia Wyatt MD Unavailable Unavailable Erica Farrell APRN BATH TESTER Unavailable Rich Barrett MD Unavailable Neil Kent MD Unavailable Diana Desir Stanislav [facility] Unavailable [phone] Livan Sharif MD Unavailable Catherine Cm MD Unavailable + Valery Veronica PA-C Unavailable [phone] Brea Quinn ENGINEERING PROGRAM ANALYST BATH TESTER Unavailable Brea Quinn ENGINEERING PROGRAM ANALYST BATH TESTER Unavailable [phone] Jose Francisco Johnson MD Unavailable Alfonso Renteria MD Unavailable + [phone] Esha Grimm PA-C Primary Care Provider Radha Lomeli ENGINEERING PROGRAM ANALYST BATH TESTER Unavailable [phone] Jelena David OD Unavailable Esha Grimm PA-C Unavailable Valery Veronica PA-C Unavailable [phone] Rey Tay MD Unavailable Rocky Zepeda DO Unavailable Philip Dumont MD Unavailable [phone] Meredith Carrera PA-C Unavailable [phone] Neil Kent MD Unavailable Juan Pablo Emmanuel MD Unavailable [phone] Audrey Waite PA-C Unavailable [phone] Encounter Details Date Type Department Care Team (Late st Contact Info) Description 03/19/2024 MyC Medical Advice [facility] Gastroenterology Clinic [address] [phone] [place] Social History Tobacco Use Types [...] Answer Date Recorded PHQ-2 Score 1 02/07/2024 [facility] - Occupational Stress [...] exercise at this level? 30 min 03/10/2023 [place] Depression Scale Answer Date Recorded [place] Depression Score 5 01/14/2021 Last EPDS Self [...] Office Visit [facility] Spine and Neurosurgery [facility] [address] [place] [address] Ebony Cid, [facility] 500 [place], [place] 411165 03/27/2024 11:00 AM CDT Office Visit [facility] [place] [address] [facility] [address] ENMA German [phone] Jelena David, SONJA 3305 [facility] [place] [address] 03/29/2024 3:30 PM CDT Therapy Visit [facility] Rehabilitation [facility] [place] [address] [place] [address] [address] [place] [phone] Ingris Thompson, PT [facility] 516 [facility] 106 [place] [address] 04/05/2024 2:10 PM CDT Therapy Visit [facility] [place] [address] [facility] [address] [place] [phone] Ingris Thompson, PT [facility] 516 [facility] 106 [place], [place] 174385 04/19/2024 2:45 PM CDT Office Visit [facility] 830 [place] [address] Audrey Waite PA-C [address] [facility] [address], [facility] 603 [place], [place] 252895 05/08/2024 1:30 PM CDT Office Visit [facility] [address] [place] [address] Lauren Claudio PA-C [address] [place], [place] [phone] Esha Grimm PA-C [address] [place] [address] 06/21/2024 2:00 PM STOCK MANAGER Office Visit [facility] Neurology Clinics - [place] [address] [place] [address], [address] [place] [address] [place] [address] [place] [address] Johnny Penn MD 6528 [place] [address] documented as of this encounter Visit Diagnoses Not on filedocumented in this encounter Additional Health Concerns Assessment Noted Time PHQ-9 Depression Total Score: 3 02/07/20 24 9:33 AM CDT documented as of this encounter Care Teams Outbound Sales Agent Relationship Specialty Start Date End Date Esha Grimm PA-C [address] [place] [address] PCP - General Family Medicine 05/04/23 Diana Desir, [facility] [address] [place] [address] Pharmacist Pharmacist 04/17/21 Rain Galaviz PA-C [address] [place] [address] [address] [place] [address] Physician Strand Forming Machine Operator Dermatology 04/28/21 Tavia Wyatt MD [address] [place] [address] [address] [place] [place] [address] Dermatology 07/14/21 Erica Farrell APRN BATH TESTER [address] 9[address]7700 [place] [address] Nurse Practitioner Cardiovascular Disease 09/09/21 Rich Barrett MD [address] 223235 Physician Ophthalmology 01/21/22 Neil Kent MD [address] [place] [address] 417375 Dermatology 02/24/22 Diana Desir, [facility] [address] [place] [address] Assigned MTM Pharmacist 04/07/22 Livan Sharif MD [address] [facility] [address] [place] [address] Cardiovascular Disease 05/14/22 Catherine Cm MD [address] [facility] [address] [place], [place] 646905 Cardiovascular Disease 07/21/22 Valery Veronica, PAUcheC [address] [place] [address] 951045 Physician Strand Forming Machine Operator Dermatology 07/21/22 Brea Quinn APRN BATH TESTER [address] [place] [address] 115715 Nurse Practitioner Dermatology 09/21/22 Brea Quinn APRN BATH TESTER 6401 [facility] [place] 078962 Assigned Surgical Provider 10/09/22 [place] [address] [address] [facility] 300 [place] [address] Assigned Musculoskeletal Provider 10/09/22 Alfonso Renteria MD 5775 [facility] 200 [place], [place] 382076 Assigned Neuroscience Provider 04/02/23 Radha Lomeli APRN BATH TESTER [address] [place] 422345 Assigned Heart and Vascular Provider 05/28/23 Jelena David OD [address] [facility] [place] [address] MD Ophthalmology 06/15/23 Esha Grimm PA-C [address] [place] [address]622983 Assigned PCP 07/16/23 Valery Veronica PA-C [address] [place] [address] 729145 Physician Strand Forming Machine Operator Dermatology 09/19/23 Rey Tay MD [address] [place] [address] 502265 MD Gastroenterology 09/20/23 Rocky Zepeda DO [address] [place] [address] 328475 Physician Gastroenterology 09/20/23 Philip Dumont MD [address] [place] [address] 894515 Physician Ophthalmology 09/22/23 Meredith Carrera PA-C [address] [place] [address] Assigned Gastroenterology Provider 11/01/23 Neil Kent MD [address] [address] Dermatology 11/02/23 [place] [address] [place] [address] Neurological Surgery 12/26/23 Audrey Waite PA-C 500 [place] [address] Physician Strand Forming Machine Operator Dermatology 02/28/24 documented as of this encounter
--- OUTSIDE RECORDS SUMMARY | 2024-03-23 15:52 | XMS_ITS | Encounter Summary ---
Author Organization [place] Address [address] [place] [address] Care Team Providers Care Plant Operations Vice President Name Role Phone Thang Diana [place] [facility] Unavailable Rain Galaviz PA-C Unavailable Tavia Wyatt MD Unavailable Unavailable Erica Farrell APRN VISCERA WASHER Unavailable Rich Barrett MD Unavailable Neil Kent MD Unavailable Diana Desir Stanislav [facility] Unavailable [phone] Livan Sharif MD Unavailable Catherine Cm MD Unavailable + Valery Veronica PA-C Unavailable [phone] Brea Quinn WELDER SETTER RESISTANCE MACHINE VISCERA WASHER Unavailable Brea Quinn WELDER SETTER RESISTANCE MACHINE VISCERA WASHER Unavailable Jose Francisco Johnson MD Unavailable Alfonso Renteria MD Unavailable + [phone] Esha Grimm PA-C Primary Care Provider Radha Lomeli WELDER SETTER RESISTANCE MACHINE VISCERA WASHER Unavailable [phone] Jelena David OD Unavailable Esha Grimm PA-C Unavailable [phone] Valery Veronica PA-C Unavailable [phone] Rey Tay MD Unavailable Rocky Zepeda DO Unavailable Philip Dumont MD Unavailable [phone] Meredith Carrera PA-C Unavailable [phone] Neil Kent MD Unavailable Juan Pablo Emmanuel MD Unavailable [phone] Audrey Waite PA-C Unavailable [phone] Encounter Details Date Type Department Care Team (Latest Contact Info) Description 03/13/2024 Travel Social History Tobacco Use Types Packs/Day [...] do you attend [facility] or mormonism services? 1 to 4 [...] Answer Date Recorded PHQ-2 Score 1 02/07/2024 [facility] - [facility]ational Stress Questionnaire [...] Office Visit [facility] Spine and Neurosurgery [address] [place] [address] 100 [place] [address] Ebony Cid, WELDER SETTER RESISTANCE MACHINE [facility] 500 [place], [place] 942935 03/27/2024 11:00 AM CDT Office Visit [facility] 3305 [facility] [address] [place] [phone] Jelena David, 3305 [facility] [place] [address] 03/29/2024 3:30 PM CDT Therapy Visit [facility] Rehabilitation [facility] [address] [place] [address] [address] [place] [address] Ingris Thompson, PT [facility] 6 [facility] 106 [place] [address] 04/05/2024 2:10 PM CDT Therapy Visit [facility] [address]57 [facility] [address] [place] [address] Ingris Thompson, PT [facility] [address] [facility] 106 [place], [place] 4[address]65 04/19/2024 2:45 PM CDT Office Visit [facility] 830 [place] [phone] Audrey Waite PA-C [address], [facility] 603 [place] [address] 05/08/2024 1:30 PM CDT Office Visit [facility] [address] [place] [phone] Lauren Claudio PA-C [address] [place], [place] [phone] Esha Grimm PA-C [address] [place] [phone] 06/21/2024 2:00 PM GRADUATE STUDIES DEAN Office Visit [facility] Neurology Clinics - [address], [address] [place] [phone] [place] [address] [place], [place] [phone] Johnny Penn MD [address] [place] [address] documented as of this encounter Visit Diagnoses Not on filedocumented in this encounter Additional Health Concerns Assessment Noted Time PHQ-9 Depression Total Score: 3 02/07/20 24 9:33 AM CDT documented as of this encounter Care Teams Plant Operations Vice President Relationship Specialty Start Date End Date Esha Grimm PA-C [address] [place] [address] PCP - General Family Medicine 05/04/23 Diana Desir, [facility] [address] [place] [address] Pharmacist Pharmacist 04/17/21 Rain Galaviz PA-C [address] [place] [address] [address] [place] [address] Physician Manager Primary Dermatology 04/28/21 Tavia Wyatt MD [address] [place] [address] [place] [address] Dermatology 07/14/21 Erica Farrell APRN VISCERA WASHER [address] [place] 435855 Nurse Practitioner Cardiovascular Disease 09/09/21 Rich Barrett MD [address] 426995 Physician Ophthalmology 01/21/22 Neil Kent MD [address] [place] [address] 032395 Dermatology 02/24/22 Diana Desir, [facility] [address] [place] [address] Assigned MTM Pharmacist 04/07/22 Livan Sharif MD [address] [facility] [address] [place] [address] Cardiovascular Disease 05/14/22 Catherine Cm MD 6405 [facility] [address] [place] [address] Cardiovascular Disease 07/21/22 Valery Veronica, PA-C 909 [place] [address] Physician Manager Primary Dermatology 07/21/22 Brea Quinn APRN VISCERA WASHER [address] [place] [address] Nurse Practitioner Dermatology 09/21/22 Brea Quinn APRN VISCERA WASHER 6401 [place] [address] Assigned Surgical Provider 10/09/22 [place] [address] [place] [address] Assigned Musculoskeletal Provider 10/09/22 Alfonso Renteria MD 5775 [facility] 200 [place] [address] Assigned Neuroscience Provider 04/02/23 Radha Lomeli APRN VISCERA WASHER [address] 3907500 [place] 788565 Assigned Heart and Vascular Provider 05/28/23 Jelena David OD 3305 [facility] [place] [address] MD Ophthalmology 06/15/23 Esha Grimm PA-C [address] [place] [address] Assigned PCP 07/16/23 Valery Veronica PA-C [address] [place] [address] 749455 Physician Manager Primary Dermatology 09/19/23 Rey Tay MD [address] [place] [address] 594345 MD Gastroenterology 09/20/23 Rocky Zepeda DO [address] [place] [address] 673385 Physician Gastroenterology 09/20/23 Philip Dumont MD [address] [place] [address] 553675 Physician Ophthalmology 09/22/23 Meredith Carrera PA-C [address] [place] [address] 520325 Assigned Gastroenterology Provider 11/01/23 Neil Kent MD [address] [place] [address] Dermatology 11/02/23 [place] [address] [place] [address] Neurological Surgery 12/26/23 Audrey [place]ite PA-C 500 [place] [address] Physician Manager Primary Dermatology 02/28/24 documented as of this encounter
--- OUTSIDE RECORDS SUMMARY | 2024-03-23 15:53 | XMS_ITS | Encounter Summary ---
Author Organization [place] Address [address] [place] [address] Care Team Providers Care Locomotive Repairer Diesel Name Role Phone Thang [place] [facility] Unavailable Rain Galaviz PA-C Unavailable Tavia Wyatt MD Unavailable Unavailable Erica Farrell APRN PHYSICIAN ASSISTANT SURGERY Unavailable Rich Barrett MD Unavailable Neil Kent MD Unavailable Diana Dseir Stanislav [facility] Unavailable [phone] Livan Sharif MD Unavailable Catherine Cm MD Unavailable + Valery Veronica PA-C Unavailable [phone] Brea Quinn PEDIATRIC OPHTHALMOLOGIST PHYSICIAN ASSISTANT SURGERY Unavailable Brea Quinn PEDIATRIC OPHTHALMOLOGIST PHYSICIAN ASSISTANT SURGERY Unavailable Jose Francisco Johnson MD Unavailable Alfonso Renteria MD Unavailable + [phone] Esha Grimm PA-C Primary Care Provider Radha Lomeli PEDIATRIC OPHTHALMOLOGIST PHYSICIAN ASSISTANT SURGERY Unavailable [phone] Jelena David OD Unavailable [phone] Esha Grimm PA-C Unavailable [phone] Valery Veronica PA-C Unavailable [phone] Rey Tay MD Unavailable Rocky Zepeda DO Unavailable Philip Dumont MD Unavailable [phone] Meredith Carrera PA-C Unavailable [phone] Neil Kent MD Unavailable Juan Pablo Emmanuel MD Unavailable [phone] Audrey Waite PA-C Unavailable [phone] Encounter Details Date Type Department Care Team (Late st Contact Info) Description 03/05/2024 MyC Medical Advice [facility] Gastroenterology Clinic [address] [place] [phone] Rebecca Moctezuma Social History Tobacco Use Types [...] Answer Date Recorded PHQ-2 Score 1 02/07/2024 [facility] - Occupational Stress [...] exercise at this level? 30 min 03/10/2023 Mcintosh Depression Scale Answer Date Recorded Mcintosh Depression Score 5 01/14/2021 Last EPDS Self [...] [facility] Spine and Neurosurgery [facility]7 [facility] [address] [place] [address] Ebony Cid, PEDIATRIC OPHTHALMOLOGIST [facility] 500 [place] [address] 03/27/2024 11:00 AM CDT Office Visit [facility] [place] 3305 [facility] [address] [place] [phone] Jelena David, 3305 [facility] [place] [address] 03/29/2024 3:30 PM CDT Therapy Visit [facility] Rehabilitation Services [place] [address] [place] [address] [address] [place] [phone] Ingris Thompson, PT [facility] 6 [facility] 106 [place] [address] 04/05/2024 2:10 PM CDT Therapy Visit [facility] Rehabilitation Services [place] [address] [facility] [address] [place] [phone] Ingris Thompson, PT [facility] [address] [facility] [address] [facility] 106 [place] [address] 04/19/2024 2:45 PM CDT Office Visit [facility] 830 [place] [phone] Audrey Waite PA-C [address] [facility] [address], [facility] 603 [place], [place] [address]75 05/08/2024 1:30 PM CDT Office Visit [facility] [address] [place] [phone] Lauren Claudio PA-C [address] [place], [place] [phone] Esha Grimm PA-C [address] [place] [phone] 06/21/2024 2:00 PM INTERNATIONAL BANKER Office Visit [facility] Neurology Clinics - [place] [address] [place] [address], [address] [place] [address] [place] [address] [place], [place] [phone] Johnny Penn MD 6545 [place], [place] [phone] documented as of this encounter Visit Diagnoses Not on filedocumented in this encounter Additional Health Concerns Assessment Noted Time PHQ-9 Depression Total Score: 3 02/07/20 24 9:33 AM CDT documented as of this encounter Care Teams Locomotive Repairer Diesel Relationship Specialty Start Date End Date Esha Grimm PA-C [address] [place] [address] PCP - General Family Medicine 05/04/23 Diana Desir, [facility] [address] [place] [address] Pharmacist Pharmacist 04/17/21 Rain Galaviz PA-C [address] [place] [address] [address] [place] [address] Physician Manufacturing Electrician Dermatology 04/28/21 Tavia Wyatt MD [address] [place] [address] [place] [address] Dermatology 07/14/21 Erica Farrell APRN PHYSICIAN ASSISTANT SURGERY [address] 5072200 [place] [address] Nurse Practitioner Cardiovascular Disease 09/09/21 Rich Barrett MD 516 [facility] 9A [place], [place] 549895 Physician Ophthalmology 01/21/22 Neil Kent MD 500 [place], [place] 174855 Dermatology 02/24/22 Diana Desir, [facility] [address] [place] [address] Assigned MTM Pharmacist 04/07/22 Livan Sharif MD [address] [facility] [address] [place] [address] Cardiovascular Disease 05/14/22 Catherine Cm MD [address] [facility] [address] [place] 065485 Cardiovascular Disease 07/21/22 Valery Veronica, PAUcheC [address] [place] [address] 774625 Physician Manufacturing Electrician Dermatology 07/21/22 Brea Quinn APRN PHYSICIAN ASSISTANT SURGERY [address] [place] [address] 315895 Nurse Practitioner Dermatology 09/21/22 Brea Quinn APRN PHYSICIAN ASSISTANT SURGERY 6401 [facility] [place] 636262 Assigned Surgical Provider 10/09/22 [place] [address] [address] [facility] 300 [place] [address] Assigned Musculoskeletal Provider 10/09/22 Alfonso Renteria MD 5775 [facility] 200 [place], [place] 317046 Assigned Neuroscience Provider 04/02/23 Radha Lomeli APRN PHYSICIAN ASSISTANT SURGERY [address] [place] [address] Assigned Heart and Vascular Provider 05/28/23 Tommy Davidistine [place] [address] [facility] [address] Ophthalmology 06/15/23 Esha Grimm PA-C [address] [place] [address] Assigned PCP 07/16/23 Valery Veronica PA-C [address] [place] [address] 477945 Physician Manufacturing Electrician Dermatology 09/19/23 Rey Tay MD [address] [place] [address] 570575 MD Gastroenterology 09/20/23 Rocky Zepeda DO [address] [place] [address] 650615 Physician Gastroenterology 09/20/23 Philip Dumont MD [address] [place] [address] 818675 Physician Ophthalmology 09/22/23 Meredith Carrera PA-C [address] [place] [address] 279845 Assigned Gastroenterology Provider 11/01/23 Neil Kent MD [address] 218110 Dermatology 11/02/23 [place] [address] [facility] [place] [address] Neurological Surgery 12/26/23 Audrey Waite PA-C 500 [place] [address] Physician Manufacturing Electrician Dermatology 02/28/24 documented as of this encounter
--- OUTSIDE RECORDS SUMMARY | 2024-03-23 15:53 | XMS_ITS | Encounter Summary ---
Author Organization [place] Address [address] [place] [address] Care Team Providers Care Arcade Attendant Name Role Phone Thang [place] [facility] Unavailable Rian Galaviz PA-C Unavailable [phone] Tavia Wyatt MD Unavailable Unavailable Erica Farrell APRN EPIDEMIOLOGY INTERN Unavailable Rich Barrett MD Unavailable Neil Kent MD Unavailable Diana Desir Stanislav [facility] Unavailable [phone] Livan Sharif MD Unavailable Catherine Cm MD Unavailable + Valery Veronica PA-C Unavailable [phone] Brea Quinn ENROLLMENT SERVICES DEAN EPIDEMIOLOGY INTERN Unavailable Brea Quinn ENROLLMENT SERVICES DEAN EPIDEMIOLOGY INTERN Unavailable Jose Francisco Johnson MD Unavailable Alfonso Renteria MD Unavailable + [phone] Esha Grimm PA-C Primary Care Provider [phone] Radha Lomeli ENROLLMENT SERVICES DEAN EPIDEMIOLOGY INTERN Unavailable [phone] Jelena David OD Unavailable Esha Grimm PA-C Unavailable [phone] Valery Veronica PA-C Unavailable [phone] Rye Tay MD Unavailable Rocky Zepeda DO Unavailable Philip Dumont MD Unavailable [phone] Meredith Carrera PA-C Unavailable [phone] Neil Kent MD Unavailable Juan Pablo Emmanuel MD Unavailable [phone] Audrey Waite PA-C Unavailable [phone] Encounter Details Date Type Department Care Team [...] 03/10/2023 How often do you attend [facility] or christian services? 1 to 4 times [...] Answer Date Recorded PHQ-2 Score 1 02/07/2024 [facility] - [facility]ational [...] exercise at this level? 30 min 03/10/2023 [place] Depression Scale Answer Date Recorded [place] Depression Score 5 01/14/2021 Last EPDS Self [...] [facility] Spine and Neurosurgery [address] [place] [address] 100 [place] [address] Ebony Cid, ENROLLMENT SERVICES DEAN [facility] 500 [place], [place] 855715 03/27/2024 11:00 AM CDT Office [facility] [address] [facility] [address] [place] [phone] Jelena David, 3305 [facility] [place] [address] 03/29/2024 3:30 PM CDT Therapy Visit [facility] Rehabilitation [facility] [address] [place] [address] [address] [place] [address] Ingris Thompson, PT [facility] 6 [facility] 106 [place] [address] 04/05/2024 2:10 PM CDT Therapy Visit [facility] [address] [facility] [address] [place] [address] Ingris Thompson, PT [facility] [address] [facility] 106 [place], [place] 344065 04/19/2024 2:45 PM CDT Office Visit [facility] 830 [place] [phone] Audrey Waite PA-C [address], [facility] 603 [place] [address] 05/08/2024 1:30 PM CDT Office Visit [facility] [address] [place] [phone] Lauren Claudio PA-C [address] [place], [place] [phone] Esha Grimm PA-C [address] [place] [address] 06/21/2024 2:00 PM SPINNER FIXER Office Visit [facility] Neurology Clinics - [address], [address] [place] [phone] [place] [address] [place], [place] [phone] Johnny Penn MD [address] [place] [address] documented as of this encounter Visit Diagnoses Not on filedocumented in this encounter Additional Health Concerns Assessment Noted Time PHQ-9 Depression Total Score: 3 02/07/20 24 9:33 AM CDT documented as of this encounter Care Teams Arcade Attendant Relationship Specialty Start Date End Date Esha Grimm PA-C [address] [place] [address] PCP - General Family Medicine 05/04/23 Diana Desir, [facility] [address] [place] [address] Pharmacist Pharmacist 04/17/21 Rain Galaviz PA-C [address] [place] [address] [address] [place] [address] Physician [employer] Director Dermatology 04/28/21 Tavia Wyatt MD [address] [place] [address] [place] [address] Dermatology 07/14/21 Erica Farrell APRN EPIDEMIOLOGY INTERN [address] [place] 919315 Nurse Practitioner Cardiovascular Disease 09/09/21 Rich Barrett MD [address] 888565 Physician Ophthalmology 01/21/22 Neil Kent MD [address] [place] [address] 739065 Dermatology 02/24/22 Diana Desir, [facility] [address] [place] [address] Assigned MTM Pharmacist 04/07/22 Livan Sharif MD [address] [facility] [address] [place] [address] Cardiovascular Disease 05/14/22 Catherine Cm MD 6405 [facility] [address] [place] [address] Cardiovascular Disease 07/21/22 Valery Veronica, PA-C 909 [place] [address] Physician [employer] Director Dermatology 07/21/22 Brea Quinn APRN EPIDEMIOLOGY INTERN [address] [place] [address] Nurse Practitioner Dermatology 09/21/22 Brea Quinn APRN EPIDEMIOLOGY INTERN 6401 [place] [address] Assigned Surgical Provider 10/09/22 [place] [address] [place] [address] Assigned Musculoskeletal Provider 10/09/22 Alfonso Renteria MD 5775 [facility] 200 [place] [address] Assigned Neuroscience Provider 04/02/23 Radha Lomeli APRN EPIDEMIOLOGY INTERN [address] [place] [address]1100 [place] [id number] Assigned Heart and Vascular Provider 05/28/23 Jelena David OD 3305 [facility] [place] [address] MD Ophthalmology 06/15/23 Esha Grimm PA-C [address] [place] [address] Assigned PCP 07/16/23 Valery Veronica PA-C [address] [place] [address] 943425 Physician [employer] Director Dermatology 09/19/23 Rey Tay MD [address] [place] [address] 703455 MD Gastroenterology 09/20/23 Rocky Zepeda DO [address] [place] [address] 010215 Physician Gastroenterology 09/20/23 Philip Dumont MD [address] [place] [address] 204705 Physician Ophthalmology 09/22/23 Meredith Carrera PA-C [address] [place] [address] 781355 Assigned Gastroenterology Provider 11/01/23 Neil Kent MD [address] [place] [address] Dermatology 11/02/23 [place] [address] [place] [address] Neurological Surgery 12/26/23 Audrey Waite PA-C 500 [place] [address] Physician [employer] [facility] Director Dermatology 02/28/24 documented as of this encounter
--- OUTSIDE RECORDS SUMMARY | 2024-03-23 15:53 | XMS_ITS | Encounter Summary ---
Author Organization [place] Address [address] [place] [address] Care Team Providers Care Key Worker Name Role Phone Thang Diana [place] [facility] Unavailable Rain Galaviz PA-C Unavailable [phone] Tavia Wyatt MD Unavailable Unavailable Erica Farrell APRN BRUSH HOLDER INSPECTOR Unavailable Rich Barrett MD Unavailable Neil Kent MD Unavailable Diana Desir Stanislav [facility] Unavailable [phone] Livan Sharif MD Unavailable Catherine Cm MD Unavailable + Valery Veronica PA-C Unavailable [phone] Brea Quinn VP HR DIVERSITY BRUSH HOLDER INSPECTOR Unavailable Brea Quinn VP HR DIVERSITY BRUSH HOLDER INSPECTOR Unavailable Jose Francisco Johnson MD Unavailable Alfonso Renteria MD Unavailable + [phone] Esha Grimm PA-C Primary Care Provider [phone] Radha Lomeli VP HR DIVERSITY BRUSH HOLDER INSPECTOR Unavailable [phone] Jelena David OD Unavailable [facility] PA-C Unavailable [phone] Valery Veronica PA-C Unavailable Rey Tay [...] Lomeli APRN CNP [address] [place] [address] Cv Cardiac Svc [facility] [address] [facility] [address] [place] [address] Referral ID Status Reason Start Date Expiration Date Visits Re quested Visits Authorized [id number] Closed 03/07/2024 03/07/2025 1 1 Encounter Details Date Type Department Care Team (Late st Contact Info) Description 03/07/2024 Telephone [facility] Heart [facility] [address] [facility] [address] [place] [address] Carley Myles, RN Social History [...] Answer Date Recorded PHQ-2 Score 1 02/07/2024 [facility] - [...] exercise at this level? 30 min 03/10/2023 [place] Depression Scale Answer Date Recorded [place] Depression Score 5 01/14/2021 Last EPDS Self [...] get event monitor placed. Pt requested a project scheduler to call her instead of her reaching out. Will route to scheduling team. Orders in [facility]. Carley ZABALA [facility] * Telephone Encounter - Radha [...] Radha Lomeli CNP for review. Carley ZABALA [facility] documented in this encounter Plan of Treatment Upcoming Encounters Date Type Department Care Team (Late st Contact Info) Description 03/26/2024 11:20 AM CDT Office Visit [facility] Spine and Neurosurgery [address] [facility] [address] [place] [phone] Ebony Cid APRN [facility] 500 [place] [address] 03/27/2024 11:00 AM CDT Office Visit [facility] Clinic [place] [address] [facility] [address] [place] [phone] Jelena David, [place] [address] [facility] [place] [address] 03/29/2024 3:30 PM CDT Therapy Visit [facility] Rehabilitation Services [place] [address] [place] [address] [address] [place] [address] Ingris Thompson, PT [facility] 516 [facility] 106 [place] [address] 04/05/2024 2:10 PM CDT Therapy Visit [facility] [place] [address] [facility] [address] [place] [address] Ingris Thompson, PT [facility] [address] [facility] 106 [place], [place] 7[address]35 04/19/2024 2:45 PM CDT Office Visit [facility] 830 [place] [phone] Audrey Waite PA-C 420 [facility] B385, [facility] 603 [place], [place] 728555 05/08/2024 1:30 PM CDT Office Visit [facility] [address] [place] [phone] Lauren Claudio PA-C [address] [place], [place] [phone] Esha Grimm PA-C [address] [place] [address] 06/21/2024 2:00 PM COIL MACHINE SUPERVISOR Office Visit [facility] Neurology Clinics - [place] [address] [place] [address], [address] [place] [address] [place] [address] [place] [phone] Johnny Penn MD 0825 [place] [address] Pending Results Name Type Priority Associated Diagnoses Date /Time Cardiac Event Monitor Adult Pediatric Cardiac Services Routine SVT (supraventricular tachycardia) (H24) 03/08/2024 11:18 AM CDT Scheduled Orders Name Type Priority Associated Diagnoses Orde r Schedule Cardiac Event Monitor Adult Pediatric Cardiac Services Routine SVT (supraventricular tachycardia) (H24) Expected: 03/08/2024 (Approximate), Expires: 03/07/2025 documented as of this encounter Visit Diagnoses Diagnosis SVT (supraventricular tachycardia) (H24)- Primary Other specified cardiac dysrhythmias Palpitations Dizziness Dizziness and giddiness Paroxysmal supraventricular tachycardia (H24) Paroxysmal supraventricular tachycardia Atypical chest pain Other chest pain documented in this encounter Additional Health Concerns Assessment Noted Time PHQ-9 Depression Total Score: 3 02/07/20 24 9:33 AM CDT documented as of this encounter Care Teams Key Worker Relationship Specialty Start Date End Date Esha Grimm PA-C [address] [place] [address] PCP - General Family Medicine 05/04/23 Diana Desir [facility] 3033 [place], [place] 327736 Pharmacist Pharmacist 04/17/21 Rain Galaviz PA-C [address] [place] [address] [address] [place] [address] Physician Waste Elimination Dermatology 04/28/21 Tavia Wyatt MD [address] [place] [address] [address] [place] [address] Dermatology 07/14/21 Erica Farrell APRN BRUSH HOLDER INSPECTOR 6405 [facility] [address] [place] [address] Nurse Practitioner Cardiovascular Disease 09/09/21 Rich Barrett MD [address] [place] [address] SE, CLINIC 9A [place], [place] 968545 Physician Ophthalmology 01/21/22 Neil Kent MD 500 [place] [address] Dermatology 02/24/22 Diana Desir, [facility] 3033 [place] [address] Assigned MTM Pharmacist 04/07/22 Livan Sharif MD [address] 773245 Cardiovascular Disease 05/14/22 Catherine Cm MD [address] 491865 Cardiovascular Disease 07/21/22 Valery Veronica, PAUcheC 9 [place], [place] 045945 Physician Waste Elimination Dermatology 07/21/22 Brea Quinn APRN BRUSH HOLDER INSPECTOR 500 [place] [address] Nurse Practitioner Dermatology 09/21/22 Brea Quinn APRN BRUSH HOLDER INSPECTOR [address] [place], [place] [address]chuck [place] [facility] [place] 276822 Assigned Surgical Provider 10/09/22 [place] [address] [place] [address] 065647 Assigned Musculoskeletal Provider 10/09/22 Alfonso Renteria MD [address] 200 [place] [address] Assigned Neuroscience Provider 04/02/23 Radha Lomeli, ARLENE BRUSH HOLDER INSPECTOR 6405 [facility] [address] [place] [address] Assigned Heart and Vascular Provider 05/28/23 Jelena David OD [address] [facility] [place] [address] MD Ophthalmology 06/15/23 Esha Grimm PA-C [address] [place] [address] Assigned PCP 07/16/23 Valery Veronica PA-C [address] [place] [address] 756195 Physician Waste Elimination Dermatology 09/19/23 Rey Tay MD [address] [place] [address] 617445 Gastroenterology 09/20/23 Rocky Zepeda DO [address] [place] [address] 590065 Physician Gastroenterology 09/20/23 Philip Dumont MD [address] [place] [address] 843085 Physician Ophthalmology 09/22/23 Meredith Carrera PA-C [address] [place] [address] 707755 Assigned Gastroenterology Provider 11/01/23 Neil Kent MD [address] 534600 MD Dermatology 11/02/23 [place] [address] [place] [address] Neurological Surgery 12/26/23 Audrey Waite PA-C [address] [place] [address] 573205 Physician Waste Elimination Dermatology 02/28/24 documented as of this encounter
--- OUTSIDE RECORDS SUMMARY | 2024-03-23 15:53 | XMS_ITS | Encounter Summary ---
Author Organization [facility] Address [address] [place] [address] Care Team Providers Care Nickel Plater Name Role Phone Thang Diana [place] [facility] Unavailable Rain Galaviz PA-C Unavailable Tavia Wyatt MD Unavailable Unavailable Erica Farrell APRN CERTIFIED ORTHOPTIST Unavailable Rich Barrett MD Unavailable Neil Kent MD Unavailable Diana Desir Stanislav [facility] Unavailable [phone] Livan Sharif MD Unavailable Catherine Cm MD Unavailable + Valery Veronica PA-C Unavailable [phone] Brea Quinn K9 HANDLER CERTIFIED ORTHOPTIST Unavailable Brea Quinn K9 HANDLER CERTIFIED ORTHOPTIST Unavailable Jose Francisco Johnson MD Unavailable Alfonso Renteria MD Unavailable + [phone] Esha Grimm PA-C Primary Care Provider Radha Lomeli K9 HANDLER CERTIFIED ORTHOPTIST Unavailable Jelena David OD Unavailable Alfa Esha M PA-C Unavailable [phone] Valery Veronica PA-C Unavailable Rey Tay MD Unavailable Rocky Zepeda DO Unavailable Philip Dumont MD Unavailable [phone] Meredith Carrera PA-C Unavailable [phone] Neil Kent MD Unavailable Juan Pablo Emmanuel MD Unavailable [phone] Audrey Waite PA-C Unavailable [phone] Reason for Visit * Reason Onset Date Comments Call Back 03/05/2024 Heart monitor fo r 14 or 30 days Encounter Details Date Type Department Care Team (Late st Contact Info) Description 03/05/2024 Telephone [facility] Heart [facility] 6[address] [facility] [address] [place] [address] Radha Lomeli APRN [facility] 6405 [facility] [address] [place], [place] 001445 Call Back (Heart monitor for 14 or [...] How often do you attend [facility] or nondenominational services? 1 to 4 times [...] Answer Date Recorded PHQ-2 Score 1 02/07/2024 [facility] - [...] exercise at this level? 30 min 03/10/2023 [place] Depression Scale Answer Date Recorded [place] Depression Score 5 01/14/2021 Last EPDS Self [...] at 2:02 PM * Telephone Encounter - DiegoAmalia - 03/05/2024 12:54 PM CDT [facility] [...] Description 03/26/2024 11:20 AM CDT Office Visit [facility] Spine and Neurosurgery 1747 [facility] 100 [place] [address] Ebony Cid, K9 HANDLER [facility] 500 [place] [address] 03/27/2024 11:00 AM CDT [facility] 3305 [facility] 160 [place] [address] Jelena David, 3305 [facility] [place] [address] 03/29/2024 3:30 PM CDT Therapy Visit [facility] [address] [place] [phone] Ingris Thompson, PT [facility] [address] [place] [address] 04/05/2024 2:10 PM CDT Therapy Visit [address] [phone] Ingris Thompson, PT [facility] [address] [place] [address] 04/19/2024 2:45 PM CDT Office Visit [address] [address] Audrey Waite PA-C [address], [facility] 603 [place], [place] 486585 05/08/2024 1:30 PM CDT Office Visit [facility] [address] [place] [address] Lauren Claudio PA-C [address] [place] [address] Esha Grimm PA-C [address] [place] [address] 06/21/2024 2:00 PM REVENUE ACCOUNTANT Office Visit [facility] Neurology Clinics - [address], [address] [place] [phone] [place] [address] [place] [address] Johnny Penn MD 6545 [place], [place] [phone] documented as of this encounter Visit Diagnoses Not on filedocumented in this encounter Additional Health Concerns Assessment Noted Time PHQ-9 Depression Total Score: 3 02/07/20 24 9:33 AM CDT documented as of this encounter Care Teams Nickel Plater Relationship Specialty Start Date End Date Esha Grimm PA-C [id number] [place] [address] PCP - General Family Medicine 05/04/23 Diana Desir, [facility] 3033 [place] [address] Pharmacist Pharmacist 04/17/21 Rain Galaviz PA-C [address] [place] [address] [address] [place] [address] Physician Briquette Operator Dermatology 04/28/21 Tavia Wyatt MD [address] [place] [address] [place] [address] Dermatology 07/14/21 Erica Farrell APRN CERTIFIED ORTHOPTIST [address] [place] 457615 Nurse Practitioner Cardiovascular Disease 09/09/21 Rich Barrett MD [address] [place] [address] 9A [place], [place] 156665 Physician Ophthalmology 01/21/22 Neil Kent MD 500 [place], [place] 974495 Dermatology 02/24/22 Diana Desir, [facility] 30[address] [place] [address] Assigned MTM Pharmacist 04/07/22 Livan Sharif MD [address] [place] 514845 Cardiovascular Disease 05/14/22 Catherine Cm MD [address] [place] 298585 Cardiovascular Disease 07/21/22 Valery Veronica PA-C 909 [place] [address] Physician Briquette Operator Dermatology 07/21/22 Brea Quinn APRN CERTIFIED ORTHOPTIST 500 [place], [place] 163885 Nurse Practitioner Dermatology 09/21/22 Brea Quinn APRN CERTIFIED ORTHOPTIST 6401 [place], [place] 861142 Assigned Surgical Provider 10/09/22 [place] [address] [facility] [facility] 300 [place] [address] Assigned Musculoskeletal Provider 10/09/22 Alfonso Renteria MD [address] [facility] 200 [place], [place] 607[address]16 Assigned Neuroscience Provider 04/02/23 Radha Lomeli APRN CERTIFIED ORTHOPTIST 6405 [facility] [address] [place] [address] Assigned Heart and Vascular Provider 05/28/23 Jelena David OD [address] [place] [address] Ophthalmology 06/15/23 Esha Grimm PA-C [address] [place] [address] Assigned PCP 07/16/23 Valery Veronica PA-C [address] [place] [address] Physician Briquette Operator Dermatology 09/19/23 Rey Tay MD [address] [place] [address] MD Gastroenterology 09/20/23 Rocky Zepeda DO [address] [place] [address] Physician Gastroenterology 09/20/23 Philip Dumont MD [address] [place] [address] Physician Ophthalmology 09/22/23 Meredith Carrera PA-C [address] [place] [address] Assigned Gastroenterology Provider 11/01/23 Neil Kent MD [address] [address] Dermatology 11/02/23 [place] [address] [place] [address] [address] Neurological Surgery 12/26/23 Audrey Waite PA-C 500 [place] [address] Physician Briquette Operator Dermatology 02/28/24 documented as of this encounter
--- OUTSIDE RECORDS SUMMARY | 2024-03-23 15:53 | XMS_ITS | Encounter Summary ---
Author Organization [facility] Address [address] [place] [address] Care Team Providers Care Engineer Byproduct Name Role Phone Thang Diana [place] [facility] Unavailable Rain Galaviz PA-C Unavailable [phone] Tavia Wyatt MD Unavailable Unavailable Erica Farrell APRN WAITER Unavailable Rich Barrett MD Unavailable Neil Kent MD Unavailable Diana Desir Stanislav [facility] Unavailable [phone] Livan Sharif MD Unavailable Catherine Cm MD Unavailable + Valery Veronica PA-C Unavailable [phone] Brea Quinn TITLE INSURANCE SALES REPRESENTATIVE WAITER Unavailable Brea Quinn TITLE INSURANCE SALES REPRESENTATIVE WAITER Unavailable Jose Francisco Johnson MD Unavailable Alfonso Renteria MD Unavailable + [phone] Esha Grimm PA-C Primary Care Provider Radha Lomeli TITLE INSURANCE SALES REPRESENTATIVE WAITER Unavailable Jelena David OD Unavailable Esha Grimm Adam PA-C Unavailable [phone] Valery Veronica PA-C Unavailable Rey Tay MD Unavailable ZepedaRocky Unavailable Philip Dumont MD Unavailable [phone] Meredith Carrera PA-C Unavailable Neil Kent MD Unavailable Juan Pablo Emmanuel MD Unavailable Audrey Waite PA-C Unavailable Reason for Referral * CV Testing (Routine) - Closed Specialty Diagnoses / Procedures Referred By Contac t Referred To Contact Cardiology Diagnoses SVT (supraventricular tachycardia) (H24) Procedures Cardiac Event Monitor Adult Pediatric Radha Lomeli APRN CNP [address] [place] [address] Rh Cv Cardiac Svc [facility] [address] [place] [address] Referral ID Status Reason Start Date Expiration Date Visits Re quested Visits Authorized [id number] Closed 03/07/2024 03/07/2025 1 1 Reason for Visit * CV Testing (Routine) - Closed Specialty Diagnoses / Procedures Referred By Contac t Referred To Contact Cardiology Diagnoses SVT (supraventricular tachycardia) (H24) Procedures Cardiac Event Monitor Adult Pediatric Radha Lomeli APRN CNP [address] [place] [address] Rh Cv Cardiac S[place] [address] [place] [address] Referral ID Status Reason Start Date Expiration Date Visits Re quested Visits Authorized [id number] Closed 03/07/2024 03/07/2025 1 1 Encounter Details Date Type Department Care Team (Latest Contact Info) Description 03/08/2024 11:00 AM CDT - 03/08/2024 11:59 PM CDT Hospital Encounter [facility] [address] [facility] [address] [place] [address] Radha Lomeli E, TITLE INSURANCE SALES REPRESENTATIVE WAITER [address] [place] [address] SVT (supraventricular tachycardia) (H24) Discharge Disposition: Home [...] PHQ-2 Score 1 02/07/2024 [facility] - [facility]ational Stress Questionnaire [...] at this level? 30 min 03/10/2023 [place] Depression Scale Answer Date Recorded [place] Depression Score 5 01/14/2021 Last EPDS Self [...] ENZYME PO) ketoconazole (NIZORAL) 2 % external shampooIndications:Ps oriasis [...] ADULT PO) omeprazole (PRILOSEC) [address] capsuleIndications:Ep igastric pain TAKE 1 CAPSULE BY MOUTH DAILY. 90 capsule 3 09/16/2023 Probiotic Product (PROBIOTIC BLEND PO) tacrolimus (PROTOPIC) 0.1 % external ointmentIndications:P soriasis [...] healed then stop 80 g 2 10/01/2022 PARoxetine (PAXIL) 40 MG tabletIndications:Anx iety Take 1 tablet (40 mg) by mouth every morning 90 tablet 1 09/21/2023 03/19/2024 documented as of this encounter Progress Notes * Saleem Gomez - 03/08/2024 11:18 AM CDT 14-day event monitor placed. documented in this encounter Plan of Treatment Upcoming Encounters Date Type Department Care Team (Late st Contact Info) Description 03/26/2024 11:20 AM CDT [facility] [address] [facility] [address] [place] [phone] Ebony Cid APRN [facility] 500 [place] [address] 03/27/2024 11:00 AM CDT [facility] Visit [facility] [place] [address] [facility] [address] [place] [phone] Jelena David, SONJA [address] [facility] [place] [address] 03/29/2024 3:30 PM CDT Therapy [facility] [place] [address] [place] [address] [address] [place] [phone] Ingris Thompson, PT [facility] 516 [facility] 106 [place] [address] 04/05/2024 2:10 PM CDT Therapy Visit [facility] [place] [address] [facility] [address] [place] [address] Ingris Thompson, PT [facility] [address] [facility] 106 [place], [place] [address] 04/19/2024 2:45 PM CDT Office Visit [facility] 830 [place] [phone] Audrey Waite PA-C 420 [facility] [address], [facility] 603 [place], [place] 84[address] 05/08/2024 1:30 PM CDT Office Visit [facility] [address] [place] [phone] Lauren Claudio PA-C [address] [place], [place] [phone] Esha Grimm PA-C [address] [place] [address] 06/21/2024 2:00 PM PACKING AND WRAPPING SUPERVISOR [facility] [place] [address] [place] [address], [address] [place] [address] [place] [address] [place] [address] Johnny Penn MD 6437 [place] [address] Pending Results Name Type Priority Associated Diagnoses Date /Time Cardiac Event Monitor Adult Pediatric Cardiac Services Routine SVT (supraventricular tachycardia) (H24) 03/08/2024 11:18 AM CDT Scheduled Orders Name Type Priority Associated Diagnoses Orde r Schedule Cardiac Event Monitor Adult Pediatric Cardiac Services Routine SVT (supraventricular tachycardia) (H24) 1 Occurrences starting 03/08/2024 until 03/08/2024 documented as of this encounter Visit Diagnoses Diagnosis SVT (supraventricular tachycardia) (H24) Other specified cardiac dysrhythmias documented in this encounter Additional Health Concerns Assessment Noted Time PHQ-9 Depression Total Score: 3 02/07/20 24 9:33 AM CDT documented as of this encounter Care Teams Engineer Byproduct Relationship Specialty Start Date End Date Esha Grimm PA-C [address] [place] [address] PCP - General Family Medicine 05/04/23 [facility] [address] [place] [address] Pharmacist Pharmacist 04/17/21 Rain Galaviz PA-C [address] [place] [address] [address] [place] [address] Physician Evaporator Helper Dermatology 04/28/21 Tavia Wyatt MD [address] [place] [address] [address] [place] [address] Dermatology 07/14/21 Erica Farrell APRN WAITER [address] [facility] [address] [place] [address] Nurse Practitioner Cardiovascular Disease 09/09/21 Rich Barrett MD 516 [facility] 9[address] [place], [place] 00[address] Physician Ophthalmology 01/21/22 Neil Kent MD 500 [place], [place] 295585 Dermatology 02/24/22 Diana Desir, [facility] [address] [place], [place] 505916 Assigned MTM Pharmacist 04/07/22 Livan Sharif MD [address] [facility] [address] [place] [address] Cardiovascular Disease 05/14/22 Catherine Cm MD [address] [place] 7[address]95 Cardiovascular Disease 07/21/22 Valery Veronica, PAUcheC 909 [place], [place] 358725 Physician Evaporator Helper Dermatology 07/21/22 Brea Quinn APRN WAITER 500 [place], [place] 415575 Nurse Practitioner Dermatology 09/21/22 Brea Quinn APRN WAITER 6401 [place], [place] 929562 Assigned Surgical Provider 10/09/22 [place] [address] [place] [address] Assigned Musculoskeletal Provider 10/09/22 MyraAlfonso garcia MD [address] [place] [address] Assigned Neuroscience Provider 04/02/23 Radha Lomeli APRN WAITER [address] [place], [place] 230815 Assigned Heart and Vascular Provider 05/28/23 Jelena David OD [address] [facility] [place] [address] MD Ophthalmology 06/15/23 Esha Grimm PA-C [address] [place] [phone] Assigned PCP 07/16/23 Valery Veronica PA-C [address] [place] [address] 883645 Physician Evaporator Helper Dermatology 09/19/23 Rey Tay MD [address] [place] [address] 641265 Gastroenterology 09/20/23 Rocky Zepeda DO [address] [place] [address] 644835 Physician Gastroenterology 09/20/23 Philip Dumont MD [address] [place] [address] 652745 Physician Ophthalmology 09/22/23 Meredith Carrera PA-C [address] [place] [address] 968395 Assigned Gastroenterology Provider 11/01/23 Neil Kent MD [address] [address] Dermatology 11/02/23 [place] [address] [place] [address] 701[address] Neurological Surgery 12/26/23 Audrey Waite, PA-C 500 [place] [address] Physician Evaporator Helper Dermatology 02/28/24 documented as of this encounter
--- OUTSIDE RECORDS SUMMARY | 2024-03-23 15:53 | XMS_ITS | Encounter Summary ---
Author Organization [facility] Address [address] [place] [address] Care Team Providers Care Dental Therapist Name Role Phone Thang Diana [place] [facility] Unavailable [phone] Rain Galaviz PA-C Unavailable Tavia Wyatt MD Unavailable Unavailable Erica Farrell APRN PLYWOOD SCARFER TENDER Unavailable Rich Barrett MD Unavailable Neil Knet MD Unavailable Diana Desir Stanislav [facility] Unavailable [phone] Livan Sharif MD Unavailable Catherine Cm MD Unavailable + Valery Veronica PA-C Unavailable [phone] Brea Quinn BEHAVIORAL SPECIALIST PLYWOOD SCARFER TENDER Unavailable Brea Quinn BEHAVIORAL SPECIALIST PLYWOOD SCARFER TENDER Unavailable Jose Francisco Johnson MD Unavailable Alfonso Renteria MD Unavailable + [phone] Esha Grimm PA-C Primary Care Provider Radha Lomeli BEHAVIORAL SPECIALIST PLYWOOD SCARFER TENDER Unavailable [phone] Jelena David OD Unavailable Alfa Esha M PA-C Unavailable [phone] Valery Veronica PA-C Unavailable [phone] Rey Tay MD Unavailable Rocky Zepeda DO Unavailable Philip Dumont MD Unavailable [phone] Meredith Carrera PA-C Unavailable [phone] Neil Kent MD Unavailable Juan Pablo Emmanuel MD Unavailable [phone] Audrey Waite PA-C Unavailable [phone] Reason for Visit * Reason Onset Date Comments Procedure 03/05/2024 Cancel/Reschedul e Encounter Details Date Type Department Care Team (Late st Contact Info) Description 03/05/2024 Telephone [facility] [address] [place] [address] None Procedure (Cancel/Reschedule) Social History [...] Answer Date Recorded PHQ-2 Score 1 02/07/2024 [facility] of Occupat ional Health [...] exercise at this level? 30 min 03/10/2023 [place] Depression Scale Answer Date Recorded [place] Depression Score 5 01/14/2021 Last EPDS Self [...] * Telephone Encounter - Wesley Powell - 03/19/2024 12:32 PM CDT 2nd attempt. Left VM, sent mychart/letter. CTL * Telephone Encounter - Rebecca Moctezuma - [...] [EGD] Date: 03/07/2024 [facility]; [address] [place] [address], 5th Floor, [place] [address] Surgeon: JUNE Rescheduled: No, Case in depot sent Mychart with call back info Did you cancel or rescheduled an EUS procedure? No. documented in this encounter Plan of Treatment Upcoming Encounters Date Type Department Care Team (Late st Contact Info) Description 03/26/2024 11:20 AM CDT Office Visit [facility] 17[address] [facility] [address] [place] [phone] Ebony Cid, BEHAVIORAL SPECIALIST PLYWOOD SCARFER TENDER 500 [place] [address] 03/27/2024 11:00 AM CDT Office Visit [facility] [address] [facility] [address] [place] [address] Jelena David, [address] [facility] [place] [address] 03/29/2024 3:30 PM CDT Therapy Visit [facility] [address] [facility] 160 [place] [phone] Ingris Thompson, PT [facility] [address] [place] [address] 106 [place], [place] [address]655 04/05/2024 2:10 PM CDT Therapy Visit [facility] [address] [facility] 160 [place] [phone] Ingris Thompson, PT [facility] [address] [place] [address] 106 [place], [place] 177775 04/19/2024 2:45 PM CDT Office Visit [facility] 830 [place] [address] Audrey Waite PA-C 420 [facility] [address], [facility] 603 [place] [address] 05/08/2024 1:30 PM CDT Office Visit [facility] [address] [place] [address] Lauren Claudio PA-C [address] [place] [address] Esha Grimm PA-C [address] [place] [address] 06/21/2024 2:00 PM SIGNING AGENT Office Visit [facility] [address] [place] [address], [address] [place] [address] [place] [address] [place] [address] [phone] Johnny Penn MD 6545 [place], [place] [phone] documented as of this encounter Visit Diagnoses Not on filedocumented in this encounter Additional Health Concerns Assessment Noted Time PHQ-9 Depression Total Score: 3 02/07/20 24 9:33 AM CDT documented as of this encounter Care Teams Dental Therapist Relationship Specialty Start Date End Date Esha Grimm PA-C [id number] [place] [address] PCP - General Family Medicine 05/04/23 Diana Desir [facility] 3033 [place] [address] Pharmacist Pharmacist 04/17/21 Rain Galaviz PA-C [address] [place] [address] [address] [place] [address] Physician Disease Management Nurse Dermatology 04/28/21 Tavia Wyatt MD [address] [place] [address] [address] [place], [place] [address] Dermatology 07/14/21 Erica Farrell APRN PLYWOOD SCARFER TENDER [address] [place] [address] Nurse Practitioner Cardiovascular Disease 09/09/21 Rich Barrett MD [address] [place] [address] 834205 Physician Ophthalmology 01/21/22 Neil Kent MD [address] [place] [address] 456515 Dermatology 02/24/22 [facility] [address] [place] [address] Assigned [place] Pharmacist 04/07/22 Livan Sharif MD [address] [place] 248[address] Cardiovascular Disease 05/14/22 Catherine Cm MD [address] [facility]00 [place] [address] Cardiovascular Disease 07/21/22 Valery Veronica, PAUcheC [address] [place] [address] 145545 Physician Disease Management Nurse Dermatology 07/21/22 Brea Quinn APRN [employer]YWOOD SCARFER TENDER 500 [place], [place] 933855 Nurse Practitioner Dermatology 09/21/22 Brea Quinn APRN PLYWOOD SCARFER TENDER 6401 [place] [address] Assigned Surgical Provider 10/09/22 [place] [address] [place] [address] [address] Assigned Musculoskeletal Provider 10/09/22 Alfonso Renteria MD [address] 364926 Assigned Neuroscience Provider 04/02/23 Radha Lomeli APRN [employer]YWOOD SCARFER TENDER [address] [address] Assigned Heart and Vascular Provider 05/28/23 Jelena David OD [address] [facility] [address] [place] [id number] Ophthalmology 06/15/23 Esha Grimm PA-C [address] [place] [phone] Assigned PCP 07/16/23 Valery Veronica PA-C 909 [place] [address] Physician Disease Management Nurse Dermatology 09/19/23 Rey Tay MD 909 [place] [address] Gastroenterology 09/20/23 Rocky Zepeda DO 500 [place] [address] Physician Gastroenterology 09/20/23 Philip Dumont MD 516 [place], [place] 493655 Physician Ophthalmology 09/22/23 Meredith Carrera PA-C [address] [place] [address] Assigned Gastroenterology Provider 11/01/23 Neil Kent MD [address] [address] Dermatology 11/02/23 [place] [address] [place] [address] Neurological Surgery 12/26/23 Audrey Waite PA-C 500 [place] [address] Physician Disease Management Nurse Dermatology 02/28/24 documented as of this encounter
--- OUTSIDE RECORDS SUMMARY | 2024-03-23 15:53 | XMS_ITS | Encounter Summary ---
Author Organization [place] Address [address] [place] [address] Care Team Providers Care Electric Well Logging Operator Name Role Phone Thang Diana [place] [facility] Unavailable Rain Galaviz PA-C Unavailable Tavia Wyatt MD Unavailable Unavailable Erica Farrell APRN BMW SALES CONSULTANT Unavailable Rich Barrett MD Unavailable Neil Kent MD Unavailable Diana Desir Stanislav [facility] Unavailable [phone] Livan Sharif MD Unavailable Catherine Cm MD Unavailable + Valery Veronica PA-C Unavailable [phone] Brea Quinn COMPRESSOR ENGINEER BMW SALES CONSULTANT Unavailable Brea Quinn COMPRESSOR ENGINEER BMW SALES CONSULTANT Unavailable Jose Francisco Johnson MD Unavailable Alfonso Renteria MD Unavailable + [phone] Esha Grimm PA-C Primary Care Provider Radha Lomeli COMPRESSOR ENGINEER BMW SALES CONSULTANT Unavailable [phone] Jelena David OD Unavailable Esha Grimm PA-C Unavailable [phone] Valery Veronica PA-C Unavailable Rey Tay MD Unavailable Rocky Zepeda DO Unavailable Philip Dumont MD Unavailable Meredith Carrera PA-C Unavailable [phone] Neil Kent MD Unavailable Juan Pablo Emmanuel MD Unavailable Audrey Waite PA-C Unavailable Encounter Details Date Type Department Care Team (Late st Contact Info) Description 03/06/2024 MyC Medical Advice [facility] [address] [place] [address] Ebony Cid APRN [facility] 500 [place] [address] Social History Tobacco Use Types [...] Answer Date Recorded PHQ-2 Score 1 02/07/2024 [facility] of Occupat ional Health - Occupational Stress [...] exercise at this level? 30 min 03/10/2023 [place] Depression Scale Answer Date Recorded [place] Depression Score 5 01/14/2021 Last EPDS Self [...] Office Visit [facility] [address] [place] [address] [address] [place] [phone] Ebony Cid APRN [facility] 500 [place] [address] 03/27/2024 11:00 AM CDT Office Visit [facility] [place] [address] [facility] [address] [place] [phone] Jelena David, OD [address]305 [facility] [place] [address] 03/29/2024 3:30 PM CDT Therapy Visit [facility] [address] [place] [phone] Ingris Thompson, PT [facility] 516 [facility] 106 [place] [address] 04/05/2024 2:10 PM CDT Therapy Visit [facility] [place] [address] [facility] [address] [place] [phone] Ingris Thompson, PT [facility] 516 [facility] 106 [place], [place] 6[address]45 04/19/2024 2:45 PM CDT Office Visit [address] [phone] Audrey Waite PA-C 420 [facility] [address], [facility] 603 [place], [place] 4[address]85 05/08/2024 1:30 PM CDT Office Visit [facility] [address] [place] [phone] Lauren Claudio PA-C [address] [place], [place] [phone] Esha Grmim PA-C [address] [place] [address] 06/21/2024 2:00 PM INTERNIST Office Visit [facility] [place] 6545 [facility], [address] [place] [address] [place] [address] [place], [place] [phone] Johnny Penn MD 0546 [facility] [place] [address] documented as of this encounter Visit Diagnoses Not on filedocumented in this encounter Additional Health Concerns Assessment Noted Time PHQ-9 Depression Total Score: 3 02/07/20 24 9:33 AM CDT documented as of this encounter Care Teams Electric Well Logging Operator Relationship Specialty Start Date End Date Esha Grimm PA-C [address] [place] [address] PCP - General Family Medicine 05/04/23 Diana Desir, [facility] [address] [place] [address] Pharmacist Pharmacist 04/17/21 Rain Galaviz PA-C [address] [place] [address] [address] [place] [address] Physician Dry Wall Installations Mechanic Dermatology 04/28/21 Tavia Wyatt MD [address] [place] [address] [place] [address] Dermatology 07/14/21 Erica Farrell APRN BMW SALES CONSULTANT 6405 [facility] [address] [place] [address] Nurse Practitioner Cardiovascular Disease 09/09/21 Rich Barrett MD 516 [facility], [address] 779[address] Physician Ophthalmology 01/21/22 Neil Kent MD 500 [place] [address] Dermatology 02/24/22 Diana Desir, [facility] 3033 [place] [address] Assigned MTM Pharmacist 04/07/22 Livan Sharif MD [address], [facility] [address] [place] [address] Cardiovascular Disease 05/14/22 Catherine Cm MD [address] [facility] [address] [place], [place] 2[address] Cardiovascular Disease 07/21/22 Valery Veronica, PA-C 909 [place] [address] Physician Dry Wall Installations Mechanic Dermatology 07/21/22 Brea Quinn APRN BMW SALES CONSULTANT 500 [place] [address] Nurse Practitioner Dermatology 09/21/22 Brea Quinn APRN [employer] SALES CONSULTANT 6401 [place] [address] Assigned Surgical Provider 10/09/22 [place] [address] [facility] 300 [place] [address] Assigned Musculoskeletal Provider 10/09/22 Alfonso Renteria MD 5775 [facility] 200 [place] [address] Assigned Neuroscience Provider 04/02/23 Radha Lomeli APRN BMW SALES CONSULTANT 6405 [facility] [address] [place] [address] Assigned Heart and Vascular Provider 05/28/23 Jelena David OD [address] [place] [address] MD Ophthalmology 06/15/23 Esha Grimm PA-C [address] [place] [address] Assigned PCP 07/16/23 Valery Veronica PA-C [address] [place] [address] 618965 Physician Dry Wall Installations Mechanic Dermatology 09/19/23 Rey Tay MD [address] [place] [address] MD Gastroenterology 09/20/23 Rocky Zepeda DO [address] [place] [address] 172235 Physician Gastroenterology 09/20/23 Philip Dumont MD [address] [place] [address] 936085 Physician Ophthalmology 09/22/23 Meredith Carrera PA-C [address] [place] [address] 897625 Assigned Gastroenterology Provider 11/01/23 Neil Kent MD [address] 778530 Dermatology 11/02/23 [place] [address] [place] [address] [address] Neurological Surgery 12/26/23 Audrey Waite, PAUcheC 500 [place], [place] 168975 Physician Dry Wall Installations Mechanic Dermatology 02/28/24 documented as of this encounter
--- OUTSIDE RECORDS SUMMARY | 2024-03-23 15:53 | XMS_ITS | Encounter Summary ---
Author Organization [place] Address [address] [place] [address] Care Team Providers Care Plastic And Reconstructive Surgeon Name Role Phone Thang Diana [place] [facility] Unavailable Rain Galaviz PA-C Unavailable Tavia Wyatt MD Unavailable Unavailable Erica Farrell APRN RANCH HAND Unavailable Rich Barrett MD Unavailable Neil Kent MD Unavailable Diana Desir Stanislav [facility] Unavailable [phone] Livan Sharif MD Unavailable Catherine Cm MD Unavailable + Valery Veronica PA-C Unavailable [phone] Brea Quinn EDITOR DICTIONARY RANCH HAND Unavailable Brea Quinn EDITOR DICTIONARY RANCH HAND Unavailable Jose Francisco Johnson MD Unavailable Alfonso Renteria MD Unavailable + [phone] Esha Grimm PA-C Primary Care Provider Radha Lomeli EDITOR DICTIONARY RANCH HAND Unavailable [phone] Jelena David OD Unavailable [phone] Esha Grimm PA-C Unavailable [phone] Valery Veronica PA-C Unavailable [phone] Rey Tay MD Unavailable Rocky Zepeda DO Unavailable Philip Dumont MD Unavailable [phone] Meredith Carrera PA-C Unavailable [phone] Neil Kent MD Unavailable Juan Pablo Emmanuel MD Unavailable [phone] Audrey Waite PA-C Unavailable [phone] Encounter Details Date Type Department Care Team [...] you attend [facility] or zoroastrian services? 1 to 4 [...] Answer Date Recorded PHQ-2 Score 1 02/07/2024 [facility] - Occupational Stress Questionnaire Answer Date [...] exercise at this level? 30 min 03/10/2023 [place] Depression Scale Answer Date Recorded [place] [...] Visit [facility] Spine and Neurosurgery [address] [place] [address] 100 [place] [address] Ebony Cid, EDITOR DICTIONARY [facility] 500 [place], [place] 365085 03/27/2024 11:00 AM CDT Office Visit [facility] [address] [facility] [address] [place] [phone] Jelena David, [address] [facility] [place] [address] 03/29/2024 3:30 PM CDT Therapy Visit [facility] Rehabilitation [facility] [address] [place] [address] [address] [place] [address] Ingris Thompson, PT [facility] 6 [facility] 106 [place] [address] 04/05/2024 2:10 PM CDT Therapy Visit [facility] 91001 [facility] [address] [place] [address] Ingris Thompson, PT [facility] [address] [facility] 106 [place], [place] [address] 04/19/2024 2:45 PM CDT Office Visit [facility] 830 [place] [phone] Audrey Waite PA-C [address], [facility] 603 [place] [address] 05/08/2024 1:30 PM CDT Office Visit [facility] [address] [place] [phone] Lauren Claudio PA-C [address] [place], [place] [phone] Esha Grimm PA-C [address] [place] [phone] 06/21/2024 2:00 PM DIRECTOR OF QUALITY IMPROVEMENT Office Visit [facility] Neurology Clinics - [address], [address] [place] [phone] [place] [address] [place], [place] [phone] Johnny Penn MD [address] [place] [address] documented as of this encounter Visit Diagnoses Not on filedocumented in this encounter Additional Health Concerns Assessment Noted Time PHQ-9 Depression Total Score: 3 02/07/20 24 9:33 AM CDT documented as of this encounter Care Teams Plastic And Reconstructive Surgeon Relationship Specialty Start Date End Date Esha Grimm PA-C [address] [place] [address] PCP - General Family Medicine 05/04/23 Diana Desir, [facility] [address] [place] [address] Pharmacist Pharmacist 04/17/21 Rain Galaviz PA-C [address] [place] [address] [address] [place] [address] Physician Sports Intern Dermatology 04/28/21 Tavia Wyatt MD [address] [place] [address] [place] [address] Dermatology 07/14/21 Erica Farrell APRN RANCH HAND [address] [place] 003515 Nurse Practitioner Cardiovascular Disease 09/09/21 Rich Barrett MD [address] 997935 Physician Ophthalmology 01/21/22 Neil Kent MD [address] [place] [address] 466055 Dermatology 02/24/22 Diana Desir, [facility] [address] [place] [address] Assigned MTM Pharmacist 04/07/22 iLvan Sharif MD [address] [facility] [address] [place] [address] Cardiovascular Disease 05/14/22 Catherine Cm MD 6405 [facility] [address] [place] [address] Cardiovascular Disease 07/21/22 Valery Veronica, PA-C 909 [place] [address] Physician Sports Intern Dermatology 07/21/22 Brea Quinn APRN RANCH HAND [address] [place] [address] Nurse Practitioner Dermatology 09/21/22 Brea Quinn APRN RANCH HAND 6401 [place] [address] Assigned Surgical Provider 10/09/22 [place] [address] [place] [address] Assigned Musculoskeletal Provider 10/09/22 Alfonso Renteria MD 5775 [facility] 200 [place] [address] Assigned Neuroscience Provider 04/02/23 Radha Lomeli APRN RANCH HAND [address] [place] [id number] [place] 323145 Assigned Heart and Vascular Provider 05/28/23 [place] David OD [address]305 [facility] [place] [address] MD Ophthalmology 06/15/23 Esha Grimm PA-C [address] [place] [address] Assigned PCP 07/16/23 Valery Veronica PA-C [address] [place] [address] 895085 Physician Sports Intern Dermatology 09/19/23 Rey Tay MD [address] [place] [address] 005305 MD Gastroenterology 09/20/23 Rocky Zepeda DO [address] [place] [address] 762535 Physician Gastroenterology 09/20/23 Philip Dumont MD [address] [place] [address] 930905 Physician Ophthalmology 09/22/23 Meredith Carrera PA-C [address] [place] [address] 960785 Assigned Gastroenterology Provider 11/01/23 Neil Kent MD [address] [place] [address] Dermatology 11/02/23 [place] [address] [place] [address] Neurological Surgery 12/26/23 Audrey Waite PA-C 500 [place] [address] Physician Sports Intern Dermatology 02/28/24 documented as of this encounter
--- OUTSIDE RECORDS SUMMARY | 2024-03-23 15:53 | XMS_ITS | Encounter Summary ---
Author Organization [place] Address [address] [place] [address] Care Team Providers Care Health And Safety Representative Name Role Phone Thang Diana [place] [facility] Unavailable Rain Galaviz PA-C Unavailable [phone] Tavia Wyatt MD Unavailable Unavailable Erica Farrell APRN BIZTALK ADMINISTRATOR Unavailable Rich Barrett MD Unavailable Neil Kent MD Unavailable Diana Desir Stanislav [facility] Unavailable [phone] Livan Sharif MD Unavailable Catherine Cm MD Unavailable + Valery Veronica PA-C Unavailable [phone] Brea Quinn TOP PRECIPITATOR OPERATOR BIZTALK ADMINISTRATOR Unavailable [phone] Brea Quinn TOP PRECIPITATOR OPERATOR BIZTALK ADMINISTRATOR Unavailable Jose Francisco Johnson MD Unavailable Alfonso Renteria MD Unavailable + [phone] Esha Grimm PA-C Primary Care Provider Radha Lomeli TOP PRECIPITATOR OPERATOR BIZTALK ADMINISTRATOR Unavailable [phone] Jelena David OD Unavailable Wicho Grimmlincoln Medina PA-C Unavailable [phone] Valery Veronica PA-C Unavailable Rey Tay MD Unavailable Rocky Zepeda Unavailable Philip Dumont MD Unavailable [phone] Meredith Carrera PA-C Unavailable [phone] Neil Kent MD Unavailable Juan Pablo Emmanuel MD Unavailable [phone] Audrey Waite PA-C Unavailable Reason for Referral * CV Testing (Routine) - Pending Review Specialty Diagnoses / Procedures Referred By Qian mayers Referred To Contact Diagnoses Palpitations Procedures ZIO PATCH 8-14 DAYS (additional cost to patient) Radha Lomeli APRN BIZTALK ADMINISTRATOR [address] [place] [address] Referral ID Status Reason Start Date Expiration Date V isits Requested Visits Authorized [id number] Pending Review 03/06/2024 03/06/2025 1 1 Reason for Visit * Reason Comments Tachycardia SVT Encounter Details Date Type Department Care Team (Late st Contact Info) Description 03/06/2024 3:00 PM CDT Office Visit [facility] Heart [facility] [address] [place] [address] [address] [place] [address] Radha Lomeli APRN BIZTALK ADMINISTRATOR [address] [place] [id number] SVT (supraventricular tachycardia) (H24) (Primary Dx); Palpitations [...] How often do you attend chur or spiritism services? 1 to 4 times [...] Answer Date Recorded PHQ-2 Score 1 02/07/2024 [facility] - Occupational Stress Questionnaire [...] exercise at this level? 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 SUPERVISOR COVERING AND LINING ESOPHAGOSCOPY, GASTROSCOPY, DUODENOSCOPY (EGD), COMBINED N/A 06/26/2021 [...] 30 min Stress: Stress Concern Present (03/10/2023) [facility] [place] [facility] - Occupational Stress Questionnaire Feeling of Stress : To some extent Social Connections: Moderately Isolated (03/10/2023) Social Connection and Isolation Panel [NHANES] Frequency of Communication with Friends and Family: Three times a week Frequency of Social Gatherings with Friends and Family: Twice a week Attends Restoration Services: 1 to 4 times per year [...] Patient???s skin was prepped per protocol. Dr. Peppre the supervising MD. Zio monitor was placed. Instructions were reviewed with and given to the patient. Patient verbalized understanding of wear, troubleshooting and monitor return instructions. documented in this encounter Plan of Treatment Upcoming Encounters Date Type Department Care Team (Late st Contact Info) Description 03/26/2024 11:20 AM CDT Office Visit [facility] Spine and Neurosurgery 1747 [facility] 100 [place] [address] Ebony Cid, TOP PRECIPITATOR OPERATOR [facility] 500 [place] [address] 03/27/2024 11:00 AM CDT Office Visit [facility] 3305 [facility] 160 [place] [address] Jelena David, 3305 [facility] [place] [address] 03/29/2024 3:30 PM CDT Therapy Visit [address] [phone] [facility]gr[facility] [address] [place] [address] 04/05/2024 2:10 PM CDT Therapy Visit [address] [phone] Ingris Thompson, PT [address] [address] 04/19/2024 2:45 PM CDT Office Visit [address] [address] Audrey Waite PA-C [address], [facility] 603 [place], [place] 468[address] 05/08/2024 1:30 PM CDT Office Visit [facility] [address] [place] [address] Lauren Claudio PA-C [address] [place] [address] Esha Grimm PA-C [address] [place] [address] 06/21/2024 2:00 PM LIFE SKILLS INSTRUCTOR Office Visit [facility] Neurology Clinics - [address], [address] [place] [address] [place] [address] [place] [address] Johnny Penn MD 6545 [place], [place] 867235 Pending Results Name Type Priority Associated Diagnoses Date /Time ZIO PATCH 8-14 DAYS (additional cost to patient) Cardiac Services Routine Palpitations 03/15/2024 Scheduled Orders Name Type Priority Associated Diagnoses Orde r Schedule ZIO PATCH 8-14 DAYS APPLICATION Procedures Routine Palpitations Ordered: 03/06/2024 documented as of this encounter Procedures Procedure Name Priority Date/Time Associated Diagnosis Comments ZIO PATCH 8-14 DAYS INTERPRETATION Routine 2023 Palpitations documented in this encounter Visit Diagnoses Diagnosis SVT (supraventricular tachycardia) (H24)- Primary Other specified cardiac dysrhythmias Palpitations documented in this encounter Additional Health Concerns Assessment Noted Time PHQ-9 Depression Total Score: 3 02/07/20 24 9:33 AM CDT documented as of this encounter Care Teams Health And Safety Representative Relationship Specialty Start Date End Date Esha Grimm PA-C [address] [place] [address] PCP - General Family Medicine 05/04/23 Diana Desir, [facility] [address] [place] [address] Pharmacist Pharmacist 04/17/21 Rain Galaviz PA-C [address] [place] [address] [address] [place] [address] Physician Manager Warehouse Dermatology 04/28/21 Tavia Wyatt MD [address] [place] [address] DR [address] [facility] [place] [place] [address] Dermatology 07/14/21 Erica Farrell APRN BIZTALK ADMINISTRATOR 6405 [facility] [address] [place] [address] Nurse Practitioner Cardiovascular Disease 09/09/21 Rich Barrett MD [address] [facility] 9[address] [place], [place] 406015 Physician Ophthalmology 01/21/22 Neil Kent MD 500 [place], [place] 611345 Dermatology 02/24/22 Diana Desir, [facility] [address] [place] [address] Assigned MTM Pharmacist 04/07/22 Livan Sharif MD [address], [facility] [address] [place] [address] Cardiovascular Disease 05/14/22 Catherine Cm MD [address] [facility] [address] [place] 789845 Cardiovascular Disease 07/21/22 Valery Veronica, PAUcheC [address] [place] [address] 875445 Physician Manager Warehouse Dermatology 07/21/22 Brea Quinn APRN BIZTALK ADMINISTRATOR 500 [place], [place] 470145 Nurse Practitioner Dermatology 09/21/22 Brea Quinn APRN BIZTALK ADMINISTRATOR 6401 [facility] [place], [place] 134362 Assigned Surgical Provider 10/09/22 [place] [address] [address] Assigned Musculoskeletal Provider 10/09/22 Alfonso Renteria MD [address] [facility] 200 [place], [place] 932106 Assigned Neuroscience Provider 04/02/23 Radha Lomeli APRN BIZTALK ADMINISTRATOR [address] [place] [address] Assigned Heart and Vascular Provider 05/28/23 Jelena David OD [address] [facility] [place] [address] MD Ophthalmology 06/15/23 Esha Grimm PA-C [address] [place] [address] Assigned PCP 07/16/23 Valery Veronica PA-C [address] [place] [address] Physician Manager Warehouse Dermatology 09/19/23 Rey Tay MD [address] [place] [address] Gastroenterology 09/20/23 Rocky Zepeda DO [address] [place] [address] Physician Gastroenterology 09/20/23 Philip Dumont MD [address] [place] [address] Physician Ophthalmology 09/22/23 Meredith Carrera PA-C [address] [place] [address] Assigned Gastroenterology Provider 11/01/23 Neil Kent MD [address] 946220 Dermatology 11/02/23 [place] [address] [place] [address] Neurological Surgery 12/26/23 Audrey Waite PA-C 500 [place], [place] 315195 Physician Manager Warehouse Dermatology 02/28/24 documented as of this encounter
--- OUTSIDE RECORDS SUMMARY | 2024-03-23 15:54 | XMS_ITS | Encounter Summary ---
Author Organization [place] Address [address] [place] [address] Care Team Providers Care Vice President Quality Name Role Phone Thang Diana [place] [facility] Unavailable [phone] Rain Galaviz PA-C Unavailable Tavia Wyatt MD Unavailable Unavailable Erica Farrell APRN NATIONAL SALES DIRECTOR Unavailable Rich Barrett MD Unavailable Neil Kent MD Unavailable Diana Desir Stanislav [facility] Unavailable [phone] Livan Sharif MD Unavailable Catherine Cm MD Unavailable + Valery Veronica PA-C Unavailable [phone] Brea Quinn CERTIFIED PERFORMANCE TECHNOLOGIST NATIONAL SALES DIRECTOR Unavailable Brea Quinn CERTIFIED PERFORMANCE TECHNOLOGIST NATIONAL SALES DIRECTOR Unavailable Jose Francisco Johnson MD Unavailable Alfonso Renteria MD Unavailable + [phone] Esha Grimm PA-C Primary Care Provider Radha Lomeli CERTIFIED PERFORMANCE TECHNOLOGIST NATIONAL SALES DIRECTOR Unavailable [phone] Jelena David OD Unavailable [phone] Esha GrimmC Unavailable [phone] Valery VeronicaC Unavailable [phone] Rey Tay MD Unavailable Duane Rockyanne STEVENS Unavailable Philip Dumont MD Unavailable [phone] Meredith CarreraC Unavailable [phone] Neil Kent MD Unavailable Juan Pablo Emmanuel MD Unavailable [phone] Encounter Details Date Type Department Care Team [...] you attend [facility] or confucianist services? 1 to 4 [...] Answer Date Recorded PHQ-2 Score 1 02/07/2024 [facility] - Occupational Stress Questionnaire Answer Date [...] exercise at this level? 30 min 03/10/2023 [place] Depression Scale Answer Date Recorded [place] Depression Score 5 01/14/2021 Last EPDS Self [...] [facility] Spine and Neurosurgery 1747 [facility] 100 [place] [address] Ebony Cid, CERTIFIED PERFORMANCE TECHNOLOGIST [facility] 500 [place], [place] 364715 03/27/2024 11:00 AM CDT Office Visit [facility] 3305 [facility] [address] [place] [phone] Jelena David, 3305 [facility] [place] [address] 03/29/2024 3:30 PM CDT Therapy Visit [facility] [address] [place] [address] 160 [place] [phone] Ingris Thompson, PT [facility] [address] [place] [address] 868045 04/05/2024 2:10 PM CDT Therapy Visit [address] [place] [phone] Ingris Thompson, PT [facility] [address] [place] [address] 04/19/2024 2:45 PM CDT Office Visit [address] [phone] Audrey Waite PA-C [address], [facility] 603 [place], [place] 575955 05/08/2024 1:30 PM CDT Office Visit [facility] [address] [place] [address] Lauren Claudio PA-C [address] [place] [address] Esha Grimm PA-C [address] [place] [address] 06/21/2024 2:00 PM GRAPHICS COORDINATOR Office Visit [facility] Neurology [facility] - [address], [address] [place] [address] [place] [address] [place] [address] Johnny Penn MD 6545 [place] [address] documented as of this encounter Visit Diagnoses Not on filedocumented in this encounter Additional Health Concerns Assessment Noted Time PHQ-9 Depression Total Score: 3 02/07/20 24 9:33 AM CDT documented as of this encounter Care Teams Vice President Quality Relationship Specialty Start Date End Date Esha Grimm PA-C [id number] [place] [address] PCP - General Family Medicine 05/04/23 Diana Desir, [facility] 3033 [place] [address] Pharmacist Pharmacist 04/17/21 Rain Galaviz PA-C [address] [place] [address] [address] [place] [address] Physician Flocculator Operator Dermatology 04/28/21 Tavia Wyatt MD [address] [place] [address] [address] [facility] [place] [address] Dermatology 07/14/21 Erica Farrell APRN NATIONAL SALES DIRECTOR [address] [place] 099185 Nurse Practitioner Cardiovascular Disease 09/09/21 Rich Barrett MD [address] [place] [address] 591435 Physician Ophthalmology 01/21/22 Neil Kent MD [address] [place] [address] 894325 Dermatology 02/24/22 Diana Desir, [facility] [address] [place] [address] Assigned MTM Pharmacist 04/07/22 Livan Sharif MD [address] [place] 500565 Cardiovascular Disease 05/14/22 Catherine Cm MD [address] [facility] [address] [place] [address] Cardiovascular Disease 07/21/22 Valery Veronica PA-C [address] [place], [place] 552785 Physician Flocculator Operator Dermatology 07/21/22 Brea Quinn APRN NATIONAL SALES DIRECTOR 500 [place], [place] 288935 Nurse Practitioner Dermatology 09/21/22 Brea Quinn APRN NATIONAL SALES DIRECTOR 6401 [facility] [place] 842512 Assigned Surgical Provider 10/09/22 [place] [address] [address] [place] [address] Assigned Musculoskeletal Provider 10/09/22 Alfonso Renteria MD 5775 [facility] 200 [place], [place] 147836 Assigned Neuroscience Provider 04/02/23 Radha Lomeli APRN NATIONAL SALES DIRECTOR [address] [facility] [address] [place] [address] Assigned Heart and Vascular Provider 05/28/23 Jelena David OD [address] [facility] [place] [address] Ophthalmology 06/15/23 Esha Grimm PA-C [address] [place] [address]83 Assigned PCP 07/16/23 Valery Veronica PA-C [address] [place] [address] Physician Flocculator Operator Dermatology 09/19/23 Rey Tay MD [address] [place] [address] MD Gastroenterology 09/20/23 Rocky Zepeda DO [address] [place] [address] Physician Gastroenterology 09/20/23 Philip Dumont MD [address] [place] [address] Physician Ophthalmology 09/22/23 Meredith Carrera PA-C [address] [place] [address] Assigned Gastroenterology Provider 11/01/23 Neil Kent MD [address] [address] Dermatology 11/02/23 [place] [address] [place] [address] Neurological Surgery 12/26/23 documented as of this encounter
--- OUTSIDE RECORDS SUMMARY | 2024-03-23 15:54 | XMS_ITS | Encounter Summary ---
Author Organization [place] Address [address] [place] [address] Care Team Providers Care Director Peoplesoft Name Role Phone Thang Diana [place] [facility] Unavailable aRin Galaviz PA-C Unavailable Tavia Wyatt MD Unavailable Unavailable Erica Farrell APRN ORGANIZATIONAL DEVELOPMENT SPECIALIST Unavailable Rich Barrett MD Unavailable Neil Kent MD Unavailable Diana Desir Stanislav [facility] Unavailable [phone] Livan Sharif MD Unavailable Catherine Cm MD Unavailable + Valery Veronica PA-C Unavailable [phone] Brea Quinn BOTTOM FILLER ORGANIZATIONAL DEVELOPMENT SPECIALIST Unavailable Brea Quinn BOTTOM FILLER ORGANIZATIONAL DEVELOPMENT SPECIALIST Unavailable Jose Francisco Johnson MD Unavailable Alfonso Renteria MD Unavailable + [phone] Esha Grimm PA-C Primary Care Provider [phone] Radha Lomeli BOTTOM FILLER ORGANIZATIONAL DEVELOPMENT SPECIALIST Unavailable [phone] Jelena David OD Unavailable Esha GrimmC Unavailable [phone] Valery VeronicaC Unavailable Rey Tay MD Unavailable Rocky Zepeda Unavailable Philip Dumont MD Unavailable [phone] Meredith CarreraC Unavailable Neil Kent MD [...] Description 02/27/2024 10:35 AM CDT Office Visit [facility] [place] [address] [place] [address] Nicole Garcia PA-C [facility] [id number] [place] [address] Vagina, candidiasis (Primary Dx); Bacterial vaginosis; [...] often do you attend chur ch or mu-ism services? 1 to 4 times [...] Answer Date Recorded PHQ-2 Score 1 02/07/2024 [facility] - Occupational Stress Questionnaire Answer [...] exercise at this level? 30 min 03/10/2023 Al[place] Depression Scale Answer Date Recorded [place] Depression Score 5 01/14/2021 Last EPDS Self [...] Negative Ketones Urine Negative Negative mg/dL Specific [place] Urine 1.020 1.003 - 1.035 Blood Urine [...] [facility] Neurosurgery [address] [place] [address] 100 [place] [phone] Ebony Cid, BOTTOM FILLER [facility] 500 [place] [address] 03/27/2024 11:00 AM CDT Office Visit [facility] Monserrat 3305 [facility] [address] [place] [phone] Jelena David, OD 3305 [facility] [place] [address] 03/29/2024 3:30 PM CDT Therapy Visit [facility] 6[address]17 [facility] 160 [place] [address] Ingris Thompson, PT [facility] 516 [facility] 106 [place], [place] 5[address]15 04/05/2024 2:10 PM CDT Therapy Visit [facility] [address] [facility] [address] [place] [phone] Ingris Thompson, PT [facility] 6 [facility] 106 [place], [place] 728405 04/19/2024 2:45 PM CDT Office Visit [address] [phone] Audrey Waite PA-C 420 [facility] [address], [facility] 603 [place], [place] 616765 05/08/2024 1:30 PM CDT Office Visit [facility] [address] [place] [phone] Lauren Claudio PA-C [address] [place], [place] [phone] Esha Grimm PA-C [address] [place] [address] 06/21/2024 2:00 PM TIMBER PACKER Office Visit [facility] Neurology Clinics - [address], [address] [place] [address] [place] [address] [place] [address] Johnny Penn MD [address] [place] [address] documented as of this encounter Procedures Procedure [...] Garcia PA-C LAB - URINE ORDERABL ES LV LABORATORY [facility] [place] [facility] [address] [facility] Lab (no room number, 1st floor of clinic) [place] [address], [facility] * (ABNORMAL) Wet prep - lab [...] Garcia PA-C LAB - MICRO GENERAL ORDERABLES LABORATORY [facility] Clinic - [facility] [address] [facility] Lab (no room number, 1st floor of clinic) [place] [address], [facility] * (ABNORMAL) UA Macroscopic with [...] 02/27/2024 10:50 AM CDT LV LABORATORY Specific [place] Urine 1.020 1.003 - 1.035 02/27/2024 10:50 [...] PA-C LAB - URINE ORDERABL ES LABORATORY [facility] [place] [facility] [address] [facility] Lab (no room number, 1st floor of clinic) [place] [address], [facility] documented in this encounter Visit Diagnoses Diagnosis Vagina, candidiasis- Primary Candidiasis of vulva and vagina Bacterial vaginosis Vaginitis and vulvovaginitis, unspecified Nasal congestion Other diseases of nasal cavity and sinuses documented in this encounter Additional Health Concerns Assessment Noted Time PHQ-9 Depression Total Score: 3 02/07/20 24 9:33 AM CDT documented as of this encounter Care Teams Director Peoplesoft Relationship Specialty Start Date End Date Esha Grimm PA-C [address] [place] [address]244[address] PCP - General Family Medicine 05/04/23 Diana Desir, [facility] 3033 [place] [address] Pharmacist Pharmacist 04/17/21 Rain Galaviz PA-C [address] [place] [address] [place] [address] Physician Top Dyeing Machine Tender Dermatology 04/28/21 Tavia Wyatt MD [address] [place] [address] [place] [address] Dermatology 07/14/21 Erica Farrell APRN ORGANIZATIONAL DEVELOPMENT SPECIALIST [address] [place], [place] 846055 Nurse Practitioner Cardiovascular Disease 09/09/21 Rich Barrett MD 516 [facility] 9A [place], [place] 744425 Physician Ophthalmology 01/21/22 Neil Kent MD 500 [place], [place] 307885 Dermatology 02/24/22 Diana Desir, [facility] 3033 [place], [place] 293426 Assigned [facility] Pharmacist 04/07/22 Livan Sharif MD [address] [place] [address] Cardiovascular Disease 05/14/22 Catherine Cm MD [address] [place], [place] 188445 Cardiovascular Disease 07/21/22 Valery Veronica, PAUcheC [address] [place] [address] 612985 Physician Top Dyeing Machine Tender Dermatology 07/21/22 Brea Quinn APRN ORGANIZATIONAL DEVELOPMENT SPECIALIST 500 [place] [address] Nurse Practitioner Dermatology 09/21/22 Brea Quinn APRN ORGANIZATIONAL DEVELOPMENT SPECIALIST [address] [place] [address] [place] [address] Assigned Surgical Provider 10/09/22 [place] [address] [facility] 300 [place] [address] Assigned Musculoskeletal Provider 10/09/22 Alfonso Renteria MD [address] [facility] 200 [place] [address] Assigned Neuroscience Provider 04/02/23 Radha Lomeli APRN ORGANIZATIONAL DEVELOPMENT SPECIALIST [address] [place] [address] Assigned Heart and Vascular Provider 05/28/23 Jelena David OD [address] [facility] [place] [address] Ophthalmology 06/15/23 Esha Grimm PA-C [address] [place] [address] Assigned PCP 07/16/23 Valery Veronica PA-C [address] [place] [address] 364475 Physician Top Dyeing Machine Tender Dermatology 09/19/23 Rey Tay MD [address] [place] [address] 801245 Gastroenterology 09/20/23 Rocky Zepeda DO [address] [place] [address] 324315 Physician Gastroenterology 09/20/23 Philip Dumont MD 516 [place] [address] Physician Ophthalmology 09/22/23 Meredith Carrera PA-C 909 [place], [place] 547605 Assigned Gastroenterology Provider 11/01/23 Neil Kent MD [address] 837260 Dermatology 11/02/23 [place] [address] [place], [place] 571317 Neurological Surgery 12/26/23 documented as of this encounter
--- OUTSIDE RECORDS SUMMARY | 2024-03-23 15:54 | XMS_ITS | Encounter Summary ---
Author Organization [place] Address [address] [place] [address] Care Team Providers Care Learning Center Instructor Name Role Phone Thang Diana [place] [facility] Unavailable [phone] Rain Galaviz PA-C Unavailable Tavia Wyatt MD Unavailable Unavailable Erica Farrell APRN SHRIMP PEELING MACHINE TENDER Unavailable Rich Barrett MD Unavailable Neil Kent MD Unavailable Diana Desir Stanislav [facility] Unavailable [phone] Livan Sharif MD Unavailable Catherine Cm MD Unavailable + Valery Veronica PA-C Unavailable [phone] Brea Quinn EDGE STAINER SHRIMP PEELING MACHINE TENDER Unavailable [phone] Brea Quinn EDGE STAINER SHRIMP PEELING MACHINE TENDER Unavailable Jose Francisco Johnson MD Unavailable Alfonso Renteria MD Unavailable + [phone] Esha Grimm PA-C Primary Care Provider [phone] Radha Lomeli EDGE STAINER SHRIMP PEELING MACHINE TENDER Unavailable [phone] Jelena David OD Unavailable [phone] Esha Grimm PA-C Unavailable [phone] Valery Veronica PA-C Unavailable Rey Tay MD Unavailable Rocky Zepeda Unavailable Philip Dumont MD Unavailable [phone] Meredith Carrera PA-C Unavailable [phone] Neil Kent MD Unavailable Juan Pablo Emmanuel MD Unavailable [phone] Reason for Visit * Reason Comments STD [...] Description 02/07/2024 10:00 AM CDT Office Visit [address] [address] Lauren Claudio PA-C [address] [place] [address] Yeast infection of the vagina (Primary [...] often do you attend chur ch or latter-day services? 1 to 4 times [...] PHQ-2 Score 1 02/07/2024 [facility] of Occupat [...] exercise at this level? 30 min 03/10/2023 [place] Depression Scale Answer Date Recorded [place] Depression Score 5 01/14/2021 Last EPDS Self [...] [facility] Spine and Neurosurgery 1747 [facility] 100 [place] [address] Ebony Cid, EDGE STAINER SHRIMP PEELING MACHINE TENDER 500 [place] [address] 03/27/2024 11:00 AM CDT Office Visit [facility] 3305 [facility] [address] [place] [phone] Jelena David, [address] [facility] [place] [address] 03/29/2024 3:30 PM CDT Therapy Visit [facility] [address] [place] [address] 160 [place] [address] Ingris Thompson, PT [facility] [address] [place] [address] 648595 04/05/2024 2:10 PM CDT Therapy Visit [facility] [address] [place] [address] 160 [place] [phone] Ingris Thompson, PT [facility] [address] [place] [address] 106 [place] [address] 04/19/2024 2:45 PM CDT Office Visit [facility] 830 [place] [address] Audrey Waite PA-C 420 [facility] [address], [facility] 603 [place], [place] 079925 05/08/2024 1:30 PM CDT Office Visit M [facility] [address] [place] [address] Lauren Claudio PA-C [address] [place] [address] Esha Grimm PA-C [address] [place] [address] 06/21/2024 2:00 PM PHARMACY CARE COORDINATOR Office Visit [facility] Neurology [address], [address] [place] [address] [place] [address] [place] [address] Johnny Penn MD 6545 [place], [place] 887635 documented as of this encounter Procedures Procedure [...] D dimer, quantitative (02/07/2024 10:08 AM CDT) Pathologist [facility] D-Dimer Quantitative <0.27 0.00 - 0.50 ug/mL [...] LABORATORY [facility] Clinic - [facility] Lab [address] Lab (no room number, 1st floor of clinic) [place] [address], [facility] [phone] * Basic metabolic panel (Ca, Cl, CO2, Creat, Gluc, K, Na, BUN) (02/07/2024 10:08 AM CDT) Pathologist [facility] Sodium 138 135 - 145 mmol/L 02/07/2024 [...] LAB - BLOOD ORDERA BLES [facility] [place] [facility] [address] [place] [address], [address] * Treponema Abs w Reflex to RPR and Titer (02/07/2024 10:08 AM CDT) Treponema Antibody Total Nonreactive Nonreactive 02/07/2024 8:21 PM CDT SPECIALTY CORE/PROT/EN DO Blood BLOOD SPECIMEN / Unknown Venipuncture / Unknown 02/07/2024 10:08 AM CDT 02/07/2024 10:13 AM CDT Lauren Claudio PA-C LAB - BLOOD ORDERA BLES SPECIALTY CORE/PROT/ENDO Specialty Core/Prot/Endo 500 [facility], Room [address] * HIV Antigen Antibody Combo (02/07/2024 [...] - BLOOD ORDERA BLES Performing Organization Address City/[facility]/ZIP Co de Phone Number [facility] LAB[facility]ATORY [facility] [place] [facility] 500 [facility], Room [address] [place] [phone] * Chlamydia trachomatis/Neisseria gonorrhoeae by PCR - Clinic Collect (02/07/2024 10:08 AM CDT) Pathologist [facility] Chlamydia Trachomatis Negative Negative 02/07/2024 6:31 PM CDT [facility] Comment: Negative for C. trachomatis rRNA by otr tanker truck driver mediated amplification. A negative result by otr tanker truck driver mediated amplification does not preclude the presence of infection because results are dependent on proper and adequate collection, absence of inhibitors and sufficient rRNA to be detected. Neisseria gonorrhoeae Negative Negative 02/07/2024 6:31 PM CDT [facility] Comment:Negative for N. gono rrhoeae rRNA by otr tanker truck driver mediated amplification. A negative result by otr tanker truck driver mediated amplification does not preclude the presence of C. trachomatis infection because results are dependent on proper and adequate collection, absence of inhibitors and sufficient rRNA to be detected. Swab VAGINAL STRUCTURE / Unknown Non-blood Collection / Unknown 02/07/2024 10:08 AM CDT 02/07/2024 10:13 AM CDT Lauren Claudio PA-C LAB - MICRO GENERA L ORDERABLES [facility]AT[facility] Inf. Diseases Diag. Lab 500 [facility], Room D[address] [place] [address], [facility] * (ABNORMAL) Wet prep [...] MICRO GENERA L ORDERABLES Performing Organization Address City/[facility]/ZIP Co de Phone Number CR LABORATORY [facility] Clinic - [place] [facility] [address] [facility] (no room number, 1st floor of clinic) [place] [address], [facility] [phone] documented in this encounter Visit Diagnoses Diagnosis [...] documented as of this encounter Care Teams Learning Center Instructor Relationship Specialty Start Date End Date Esha Grimm PA-C [address] [place] [address] PCP - General Family Medicine 05/04/23 Diana Desir, [facility] 3033 [place] [address] Pharmacist Pharmacist 04/17/21 Rain Galaviz PA-C [address] [place] [address] [address] [place] [address] Physician Sales Representative Jewelry Dermatology 04/28/21 Tavia Wyatt MD [address] [place] [address] [place] [address] Dermatology 07/14/21 Erica Farrell APRN SHRIMP PEELING MACHINE TENDER [address] [place] 751605 Nurse Practitioner Cardiovascular Disease 09/09/21 Rich Barrett MD [address] [place] [address] 9A [place], [place] 821295 Physician Ophthalmology 01/21/22 Neil Kent MD 500 [place], [place] 521525 Dermatology 02/24/22 Diana Desir, [facility] [address] [place] [address] Assigned MTM Pharmacist 04/07/22 Livan Sharif MD [address] [place] 0727[address] Cardiovascular Disease 05/14/22 Catherine Cm MD [address] [place] 567465 Cardiovascular Disease 07/21/22 Valery Veronica PA-C 909 [place] [address] Physician Sales Representative Jewelry Dermatology 07/21/22 Brea Quinn APRN SHRIMP PEELING MACHINE TENDER 500 [place], [place] 353865 Nurse Practitioner Dermatology 09/21/22 Brea Quinn APRN SHRIMP PEELING MACHINE TENDER 6401 [place], [place] 438382 Assigned Surgical Provider 10/09/22 [place] [address] [address] [facility] 300 [place] [address] Assigned Musculoskeletal Provider 10/09/22 Alfonso Renteria MD [address] [facility] 200 [place], [place] 79[address] Assigned Neuroscience Provider 04/02/23 Radha Lomeli APRN SHRIMP PEELING MACHINE TENDER [address] [facility] [address] [place] [address] Assigned Heart and Vascular Provider 05/28/23 Jelena David OD [address] [facility] [place] [address] Ophthalmology 06/15/23 Esha Grimm PA-C [address] [place] [address] Assigned PCP 07/16/23 Valery Veronica PA-C [address] [place] [address] Physician Sales Representative Jewelry Dermatology 09/19/23 Rey Tay MD [address] [place] [address] MD Gastroenterology 09/20/23 Rocky Zepeda DO [address] [place] [address] Physician Gastroenterology 09/20/23 Philip Dumont MD [address] [place] [address] Physician Ophthalmology 09/22/23 Meredith Carrera PA-C [address] [place] [address] Assigned Gastroenterology Provider 11/01/23 Neil Kent MD [address] [address] Dermatology 11/02/23 [place] [address] [address] Neurological Surgery 12/26/23 documented as of this encounter
--- OUTSIDE RECORDS SUMMARY | 2024-03-23 15:54 | XMS_ITS | Encounter Summary ---
Author Organization [place] Address [address] [place] [address] Care Team Providers Care Franchise Development Manager Name Role Phone Thang Diana [place] [facility] Unavailable Rain Galaviz PA-C Unavailable Tavia Wyatt MD Unavailable Unavailable Erica Farrell APRN MACHINED PARTS QUALITY INSPECTOR Unavailable Rich Barrett MD Unavailable Neil Kent MD Unavailable Diana Desir Stanislav [facility] Unavailable [phone] Livan Sharif MD Unavailable Catherine Cm MD Unavailable + Valery Veronica PA-C Unavailable [phone] Brea Quinn WEDDING COORDINATOR MACHINED PARTS QUALITY INSPECTOR Unavailable Brea Quinn WEDDING COORDINATOR MACHINED PARTS QUALITY INSPECTOR Unavailable Jose Francisco Johnson MD Unavailable Alfonso Renteria MD Unavailable [phone] Esha Grimm PA-C Primary Care Provider [phone] Radha Lomeli WEDDING COORDINATOR MACHINED PARTS QUALITY INSPECTOR Unavailable [phone] Jelena David OD Unavailable Esha Grimm PA-C Unavailable [phone] Valery Veronica PA-C Unavailable [phone] Rey Tay MD Unavailable Rocky Zepeda DO Unavailable Philip Dumont MD Unavailable Meredith Carrera PA-C Unavailable Neil Kent MD Unavailable Juan Pablo Emmanuel MD Unavailable [phone] Audrey Waite PA-C Unavailable Encounter Details Date Type Department Care Team (Late st Contact Info) Description 02/27/2024 MyC Medical Advice [facility] [address] [place] [address] Ebony Cid APRN MACHINED PARTS QUALITY INSPECTOR 500 [place] [address] Social History Tobacco Use Types [...] Answer Date Recorded PHQ-2 Score 1 02/07/2024 [facility] - Occupational [...] exercise at this level? 30 min 03/10/2023 [place] Depression Scale Answer Date Recorded [place] [...] 03/26/2024 11:20 AM CDT Office Visit [facility] [address] [place] [address] [address] [place] [address] Ebony Cid, ARLENE MACHINED PARTS QUALITY INSPECTOR 500 [place] [address] 03/27/2024 11:00 AM CDT Office Visit [facility] Monserrat [address] [facility] [address] [place] [phone] Jelena David, SONJA 3305 [facility] [place] [address] 03/29/2024 3:30 PM CDT Therapy Visit [facility] [address] [place] [phone] Ingris Thompson, PT [facility] 516 [facility] 106 [place] [address] 04/05/2024 2:10 PM CDT Therapy Visit [facility] [place] [address] [facility] [address] [place] [phone] Ingris Thomposn, PT [facility] 516 [facility] 106 [place], [place] [address]825 04/19/2024 2:45 PM CDT Office Visit [address] [phone] Audrey Waite PA-C 420 [facility] [address], [facility] 603 [place], [place] 0[address]135 05/08/2024 1:30 PM CDT Office Visit [facility] [address] [place] [phone] Lauren Claudio PA-C [address] [place], [place] [phone] Esha Grimm PA-C [address] [place] [address] 06/21/2024 2:00 PM GAME MASTER Office Visit [facility] [place] [address] [place] [address], [address] [place] [address] [place] [address] [place] [phone] Johnny Penn MD 6769 [facility] [place] [address] documented as of this encounter Visit Diagnoses Not on filedocumented in this encounter Additional Health Concerns Assessment Noted Time PHQ-9 Depression Total Score: 3 02/07/20 24 9:33 AM CDT documented as of this encounter Care Teams Franchise Development Manager Relationship Specialty Start Date End Date Esha Grimm PA-C [address] [place] [address] PCP - General Family Medicine 05/04/23 Diana Desir, [facility] [address] [place], [place] 6[address]86 Pharmacist Pharmacist 04/17/21 Rain Galaviz PA-C [address] [place] [address] [address] [place] [address] Physician Squadron Worker Dermatology 04/28/21 Tavia Wyatt MD [address] [place] [address] [address] [facility] [place] [address] Dermatology 07/14/21 Erica Farrell APRN MACHINED PARTS QUALITY INSPECTOR 6405 [facility] [address] [place], [place] 246455 Nurse Practitioner Cardiovascular Disease 09/09/21 Rich Barrett MD [address] [facility] 9A [place], [place] 026075 Physician Ophthalmology 01/21/22 Neil Kent MD 500 [place], [place] 356005 Dermatology 02/24/22 Diana Desir, [facility] 3033 [place] [address] Assigned MTM Pharmacist 04/07/22 Livan Sharif MD [address] [facility] [address] [place] [address] Cardiovascular Disease 05/14/22 Catherine Cm MD 6405 [facility] [address] [place] [address] Cardiovascular Disease 07/21/22 Valery Veronica, PAUcheC [address] [place] [address] Physician Squadron Worker Dermatology 07/21/22 Brea Quinn APRN MACHINED PARTS QUALITY INSPECTOR [address] [place] [address] Nurse Practitioner Dermatology 09/21/22 Brea Quinn APRN MACHINED PARTS QUALITY INSPECTOR [address] [place] [address] Assigned Surgical Provider 10/09/22 [place] [address] [facility] 300 [place] [address] Assigned Musculoskeletal Provider 10/09/22 Alfonso Renteria MD 5775 [facility] 200 [place] [address] Assigned Neuroscience Provider 04/02/23 Radha Lomeli APRN MACHINED PARTS QUALITY INSPECTOR [address] [place] [address] Assigned Heart and Vascular Provider 05/28/23 Jelena David OD [address] [facility] [place] [address] MD Ophthalmology 06/15/23 Esha Grimm PA-C [address] [place] [address] Assigned PCP 07/16/23 Valery Veronica PA-C [address] [place] [address] 957425 Physician Squadron Worker Dermatology 09/19/23 Rey Tay MD [address] [place] [address] 747975 MD Gastroenterology 09/20/23 Rocky Zepeda DO [address] [place] [address] 924525 Physician Gastroenterology 09/20/23 Philip Dumont MD [address] [place] [address] 919415 Physician Ophthalmology 09/22/23 Meredith Carrera PA-C [address] [place] [address] 035845 Assigned Gastroenterology Provider 11/01/23 Neil Kent MD [address] 283[address] Dermatology 11/02/23 [place] [address] [address] Neurological Surgery 12/26/23 Audrey Waite, PAUcheC 500 [place], [place] 854805 Physician Squadron Worker Dermatology 02/28/24 documented as of this encounter
--- OUTSIDE RECORDS SUMMARY | 2024-03-23 15:54 | XMS_ITS | Encounter Summary ---
Author Organization [place] Address [address] [place] [address] Care Team Providers Care Court Orderly Name Role Phone Thang Diana [place] [facility] Unavailable Rain Galaviz PA-C Unavailable Tavia Wyatt MD Unavailable Unavailable Erica Farrell APRN ASSISTANT MANAGER RETAIL Unavailable Rich Barrett MD Unavailable Neil Kent MD Unavailable Diana Desir Stanislav [facility] Unavailable [phone] Livan Sharif MD Unavailable Catherine Cm MD Unavailable + Valery Veronica PA-C Unavailable [phone] Brea Quinn NURSING COORDINATOR ASSISTANT MANAGER RETAIL Unavailable Brea Quinn NURSING COORDINATOR ASSISTANT MANAGER RETAIL Unavailable Jose Francisco Johnson MD Unavailable Alfonso Renteria MD Unavailable + [phone] Esha Grimm PA-C Primary Care Provider [phone] Radha Lomeli NURSING COORDINATOR ASSISTANT MANAGER RETAIL Unavailable [phone] Jelena David OD Unavailable Esha Grimm PA-C Unavailable [phone] Valery VeronicaC Unavailable Rey Tay MD Unavailable Duane Rocky DO Unavailable Philip Dumont MD Unavailable Meredith CarreraC Unavailable Neil Kent MD Unavailable Juan Pablo Emmanuel MD Unavailable Reason for Visit * Reason Onset Date Comments Symptoms 02/06/2024 VAGINAL SYMPTOMS THAT PATIENT WOULD LIKE TO GET LAB ORDERS FOR Encounter Details Date Type Department Care Team (Late st Contact Info) Description 02/06/2024 Telephone [facility] [address] [place] [address] Esha Grimm PA-C [address] [place] [address] Symptoms (VAGINAL SYMPTOMS THAT PATIENT [...] do you attend chur or bahai services? 1 to 4 times [...] exercise at this level? 30 min 03/10/2023 Noxapater Depression Scale Answer Date Recorded Noxapater Depression Score 5 01/14/2021 Last EPDS Self [...] Office Visit [facility] [address] [place] [address] 100 [place] [address] Ebony Cid, NURSING COORDINATOR [facility] 500 [place] [address] 03/27/2024 11:00 AM CDT Office Visit [facility] [address] [facility] [address] [place] [address] Jelena David, 3305 [facility] [place] [address] 03/29/2024 3:30 PM CDT Therapy Visit [address] [address] Ingris Thompson, PT [facility] [address] [place] [address] 04/05/2024 2:10 PM CDT Therapy Visit [address] [phone] Ingris Thompson, PT [facility] [address] [place] [address] 04/19/2024 2:45 PM CDT Office Visit [address] [phone] Audrey Waite PA-C [address], [facility] 603 [place] [address] 05/08/2024 1:30 PM CDT Office Visit [facility] [address] [place] [address] Lauren Claudio PA-C [address] [place] [address] Esha Grimm PA-C [address] [place] [address] 06/21/2024 2:00 PM BORING MILL OPERATOR FOR METAL Office Visit [facility] - [address], [address] [place] [address] [place] [address] [place], [place] [phone] Johnny Penn MD 6545 [place], [place] [phone] documented as of this encounter Visit Diagnoses Not on filedocumented in this encounter Additional Health Concerns Assessment Noted Time PHQ-9 Depression Total Score: 4 06/20/20 23 8:40 AM BORING MILL OPERATOR FOR METAL documented as of this encounter Care Teams Court Orderly Relationship Specialty Start Date End Date Esha Grimm PA-C [id number] [place] [address] PCP - General Family Medicine 05/04/23 Diana Desir, [facility] [address] [place] [address] Pharmacist Pharmacist 04/17/21 Rain Galaviz PA-C [address] [place] [address] [address] [place] [address] Physician Bottling Attendant Dermatology 04/28/21 Tavia Wyatt MD [address] [place] [address] [address] [place] [address] Dermatology 07/14/21 Erica Farrell APRN ASSISTANT MANAGER RETAIL [address] [place] 124845 Nurse Practitioner Cardiovascular Disease 09/09/21 Rich Barrett MD 516 [facility] 9A [place], [place] 178625 Physician Ophthalmology 01/21/22 Neil Kent MD 500 [place], [place] 912315 Dermatology 02/24/22 Diana Desir, [facility] [address] [place] [address] Assigned MTM Pharmacist 04/07/22 Livan Sharif MD [address] [place] [address] Cardiovascular Disease 05/14/22 Catherine Cm MD 6405 [facility] [address] [place] [address] Cardiovascular Disease 07/21/22 Valery Veronica PA-C 909 [place], [place] 543685 Physician Bottling Attendant Dermatology 07/21/22 Brea Quinn APRN ASSISTANT MANAGER RETAIL 500 [place], [place] 864885 Nurse Practitioner Dermatology 09/21/22 Brea Quinn APRN ASSISTANT MANAGER RETAIL 6401 [place], [place] 113012 Assigned Surgical Provider 10/09/22 [place] [address] [place] [address] Assigned Musculoskeletal Provider 10/09/22 Alfonso Renteria MD 5775 [facility] 200 [place], [place] 280366 Assigned Neuroscience Provider 04/02/23 Radha Lomeli APRN ASSISTANT MANAGER RETAIL [facility] [address] [place] [address] Assigned Heart and Vascular Provider 05/28/23 Jelena David OD 3305 [facility] [place] [address] Ophthalmology 06/15/23 Esha Grimm PA-C [address] [place] [address] Assigned PCP 07/16/23 Valery Veronica PA-C [address] [place] [address] Physician Bottling Attendant Dermatology 09/19/23 Rey Tay MD [address] [place] [address] MD Gastroenterology 09/20/23 Rocky Zepeda DO [address] [place] [address] Physician Gastroenterology 09/20/23 Philip Dumont MD [address] [place] [address] Physician Ophthalmology 09/22/23 Meredith Carrera PA-C [address] [place] [address] Assigned Gastroenterology Provider 11/01/23 Neil Kent MD [address] [address] Dermatology 11/02/23 [place] [address] [place] [address] Neurological Surgery 12/26/23 documented as of this encounter
--- OUTSIDE RECORDS SUMMARY | 2024-03-23 15:54 | XMS_ITS | Encounter Summary ---
Author Organization [place] Address [address] [place] [address] Care Team Providers Care Insurance Coordinator Name Role Phone Thang Diana [place] [facility] Unavailable Rain Galaviz PA-C Unavailable Tavia Wyatt MD Unavailable Unavailable Erica Farrell APRN MANUFACTURING JOB TITLES Unavailable Rich Barrett MD Unavailable Neil Kent MD Unavailable Diana Desir Stanislav [facility] Unavailable [phone] Livan Sharif MD Unavailable Catherine Cm MD Unavailable + Valery Veronica PA-C Unavailable [phone] Brea Quinn RAC SPECIALIST MANUFACTURING JOB TITLES Unavailable Brea Quinn RAC SPECIALIST MANUFACTURING JOB TITLES Unavailable [phone] Jose Francisco Johnson MD Unavailable Alfonso Renteria MD Unavailable + [phone] Esha Grimm PA-C Primary Care Provider Radha Lomeli RAC SPECIALIST MANUFACTURING JOB TITLES Unavailable [phone] Jelena David OD Unavailable Esha Grimm PA-C Unavailable [phone] Valery Veronica PA-C Unavailable [phone] Rey Tay MD Unavailable Rocky Zepeda DO Unavailable Philip Dumont MD Unavailable [phone] Meredith Carrera PA-C Unavailable [phone] Neil Kent MD Unavailable Juan Pablo Emmanuel MD Unavailable [phone] Audrey Waite PA-C Unavailable [phone] Encounter Details Date Type Department Care Team (Late st Contact Info) Description 02/28/2024 MyC Medical Advice [facility] [address] [phone] Rain Burnette, RN Social History Tobacco Use [...] often do you attend chur ch or confucianism services? 1 to 4 times [...] PHQ-2 Score 1 02/07/2024 [facility] - Occupational Stress Questionnaire Answer [...] exercise at this level? 30 min 03/10/2023 Ravena Depression Scale Answer Date Recorded Ravena Depression Score 5 01/14/2021 Last EPDS Self [...] Visit [facility] [facility] [address] [place] [address] Ebony Cid, [facility] 500 [place], [place] 560925 03/27/2024 11:00 AM CDT Office Visit [facility] [place] [address] [facility] [address] [place] [phone] Jelena David, SONJA 3305 [facility] [place] [address] 03/29/2024 3:30 PM CDT Therapy Visit [facility] [place] [address] [place] [address] [address] [place] [phone] Ingris Thompson, PT [facility] 516 [facility] 106 [place] [address] 04/05/2024 2:10 PM CDT Therapy Visit [facility] [place] [address] [facility] [address] [place] [phone] Ingris Thompson, PT [facility] 516 [facility] 106 [place], [place] [address]995 04/19/2024 2:45 PM CDT Office Visit [facility] 830 [place] [phone] Audrey Waite PA-C [address] [facility] [address], [facility] 603 [place], [place] 295035 05/08/2024 1:30 PM CDT Office Visit [facility] [address] [place] [address] Lauren Claudio PA-C [address] [place], [place] [phone] Esha Grimm PA-C [address] [place] [address] 06/21/2024 2:00 PM UM NURSE Office Visit [facility] [place] [address] [place] [address], [address] [place] [address] [place] [address] [place] [address] Johnny Penn MD 6587 [place] [address] documented as of this encounter Visit Diagnoses Not on filedocumented in this encounter Additional Health Concerns Assessment Noted Time PHQ-9 Depression Total Score: 3 02/07/20 24 9:33 AM CDT documented as of this encounter Care Teams Insurance Coordinator Relationship Specialty Start Date End Date Esha Grimm PA-C [address] [place] [address] PCP - General Family Medicine 05/04/23 Diana Desir, [facility] [address] [place] [address] Pharmacist Pharmacist 04/17/21 Rain Galaviz PA-C [address] [place] [address] [address] [place] [address] Physician Card Maker Dermatology 04/28/21 Tavia Wyatt MD [address] [place] [address] [address] [place] [address] Dermatology 07/14/21 Erica Farrell APRN MANUFACTURING JOB TITLES [address] [place] 8954600 [place] [address] Nurse Practitioner Cardiovascular Disease 09/09/21 Rich Barrett MD [address] 181805 Physician Ophthalmology 01/21/22 Neil Kent MD [address] [place] [address] 384555 Dermatology 02/24/22 Diana Desir, [facility] [address] [place] [address] Assigned MTM Pharmacist 04/07/22 Livan Sharif MD [address] [facility] [address] [place] [address] Cardiovascular Disease 05/14/22 Catherine Cm MD [address] [facility] [address] [place], [place] 424515 Cardiovascular Disease 07/21/22 Valery Veronica, PAUcheC [address] [place] [address] 602845 Physician Card Maker Dermatology 07/21/22 Brea Quinn APRN MANUFACTURING JOB TITLES [address] [place] [address] 107155 Nurse Practitioner Dermatology 09/21/22 Brea Quinn APRN MANUFACTURING JOB TITLES 6401 [facility] [place] 673342 Assigned Surgical Provider 10/09/22 [place] [address] [address] [facility] 300 [place] [address] Assigned Musculoskeletal Provider 10/09/22 Alfonso Renteria MD 5775 [facility] 200 [place], [place] 941886 Assigned Neuroscience Provider 04/02/23 Radha Lomeli APRN MANUFACTURING JOB TITLES [address] [place] 953875 Assigned Heart and Vascular Provider 05/28/23 Jelena David OD [address] [facility] [place] [address] MD Ophthalmology 06/15/23 Esha Grimm PA-C [address] [place] [address] Assigned PCP 07/16/23 Valery Veronica PA-C [address] [place] [address] 464005 Physician Card Maker Dermatology 09/19/23 Rey Tay MD [address] [place] [address] 090595 MD Gastroenterology 09/20/23 Rocky Zepeda DO [address] [place] [address] 105975 Physician Gastroenterology 09/20/23 Philip Dumont MD [address] [place] [address] 187135 Physician Ophthalmology 09/22/23 Meredith Carrera PA-C [address] [place] [address] Assigned Gastroenterology Provider 11/01/23 Neil Kent MD [address] [address] Dermatology 11/02/23 [place] [address] [place] [address] Neurological Surgery 12/26/23 Audrey Waite PA-C 500 [place] [address] Physician Card Maker Dermatology 02/28/24 documented as of this encounter
--- OUTSIDE RECORDS SUMMARY | 2024-03-23 15:54 | XMS_ITS | Encounter Summary ---
Author Organization [place] Address [address] [place] [address] Care Team Providers Care Steam And Gas Turbine Assembler Name Role Phone Thang Diana [place] [facility] Unavailable Rain Galaviz PA-C Unavailable Tavia Wyatt MD Unavailable Unavailable Erica Farrell APRN NPS Unavailable Rich Barrett MD Unavailable Neil Kent MD Unavailable Diana Desir Stanislav [facility] Unavailable [phone] Livan Sharif MD Unavailable Catherine Cm MD Unavailable + Valery Veronica PA-C Unavailable [phone] Brea Quinn DIAL MOUNTER NPS Unavailable Brea Quinn DIAL MOUNTER NPS Unavailable Jose Francisco Johnson MD Unavailable Alfonso Renteria MD Unavailable + [phone] Esha Grimm PA-C Primary Care Provider [phone] Radha Lomeli DIAL MOUNTER NPS Unavailable [phone] Jelena David OD Unavailable Esha GrimmC Unavailable [phone] Valery Veronica-C Unavailable Rey Tay MD Unavailable Duane Rockyanne [place] Unavailable Philip Dumont MD Unavailable [phone] Meredith Carrera PA-C Unavailable Neil Kent MD Unavailable Juan Pablo Emmanuel MD Unavailable [phone] Audrey Waite PA-C Unavailable [phone] Reason for Visit * Reason Onset Date Comments Letter for School/Work 03/01/2024 Encounter Details Date Type Department Care Team (Late st Contact Info) Description 03/01/2024 Telephone [facility] [address] [place] [address] Esha Grimm PA-C [id number] [place] [address] Letter for School/Work Social History Tobacco [...] attend [facility] or roman cath[employer] services? 1 to [...] Answer Date Recorded PHQ-2 Score 1 02/07/2024 [facility] [...] exercise at this level? 30 min 03/10/2023 Custar Depression Scale Answer Date Recorded Custar Depression Score 5 01/14/2021 Last EPDS Self [...] review. Patient OK with getting letter via [employer]. Isabelle Avendano RN on 03/01/2024 at 9:06 AM documented in this encounter Plan of Treatment Upcoming Encounters Date Type Department Care Team (Late st Contact Info) Description 03/26/2024 11:20 AM CDT Office Visit [facility] [address] [facility] [address] [place] [address] Ebony Cid, DIAL MOUNTER NPS 500 [place] [address] 03/27/2024 11:00 AM CDT Office Visit [facility] [address] [facility] [address] [place] [address] Jelena David, 3305 [facility] [place] [address] 03/29/2024 3:30 PM CDT Therapy Visit [facility] [address] [facility] 160 [place] [phone] [facility]gris Thompson[facility] PT [facility] [address] [place] [address] 080495 04/05/2024 2:10 PM CDT Therapy Visit [facility] [address]88[address] [facility] 160 [place] [address] Ingris Thompson, PT [facility] [address] [place] [address] 106 [place], [place] 868645 04/19/2024 2:45 PM CDT Office Visit [address] [address] Audrey Waite PA-C 420 [facility] [address], [facility] 603 [place] [address] 05/08/2024 1:30 PM CDT Office Visit [facility] [address] [place] [address] Lauren Claudio PA-C [address] [place] [address] Esha Grimm PA-C [id number] [place] [address] 06/21/2024 2:00 PM CONTRACTS SPECIALIST Office Visit [facility] [address] [place] [address], [address] [place] [phone] [place] [address] [place] [address] [place] [address] Johnny Penn MD 6545 [place] [address] documented as of this encounter Visit Diagnoses Not on filedocumented in this encounter Additional Health Concerns Assessment Noted Time PHQ-9 Depression Total Score: 3 02/07/20 24 9:33 AM CDT documented as of this encounter Care Teams Steam And Gas Turbine Assembler Relationship Specialty Start Date End Date Esha Grimm PA-C [id number] [place] [address] PCP - General Family Medicine 05/04/23 Diana Desir, [facility] 3033 [facility] [place] [address] Pharmacist Pharmacist 04/17/21 Rain Galaviz PA-C [address] [place] [address] [address] [place] [address] Physician Entry Manager Dermatology 04/28/21 Tavia Wyatt MD [address] [place] [address] [address] [place] [address] Dermatology 07/14/21 Erica Farrell APRN NPS [address] [place], [place] 983965 Nurse Practitioner Cardiovascular Disease 09/09/21 Rich Barrett MD [address] [place] [address] 923285 Physician Ophthalmology 01/21/22 Neil Kent MD [address] [place] [address] 399775 Dermatology 02/24/22 [facility] [address] [place] [address] 146316 Assigned [place] Pharmacist 04/07/22 Livan Sharif MD [address], [facility] [place] [address] Cardiovascular Disease 05/14/22 Catherine Cm MD [address] [facility]00 [place] 041665 Cardiovascular Disease 07/21/22 Valery Veronica PA-C [address] [place] [address] 451505 Physician Entry Manager Dermatology 07/21/22 Brea Quinn APRN NPS 500 [place], [place] 793835 Nurse Practitioner Dermatology 09/21/22 Brea Quinn APRN NPS 6401 [place] [address] Assigned Surgical Provider 10/09/22 [place] [address] [place] [address] [address] Assigned Musculoskeletal Provider 10/09/22 Alfonso Renteria MD [address] [facility] 200 [place] [address] Assigned Neuroscience Provider 04/02/23 Radha Lomeli APRN NPS [address] [place], [place] 9226[address] [place] [address] Assigned Heart and Vascular Provider 05/28/23 Jelena David OD [address] [facility] [address] [place] [phone] Ophthalmology 06/15/23 Esha Grimm PA-C [address] [place] [phone] Assigned PCP 07/16/23 Valery Veronica PA-C 909 [place], [place] 291685 Physician Entry Manager Dermatology 09/19/23 Rey Tay MD 909 [place] [address] MD Gastroenterology 09/20/23 Rocky Zepeda DO 500 [place] [address] Physician Gastroenterology 09/20/23 Philip Dumont MD 516 [place], [place] 234565 Physician Ophthalmology 09/22/23 Meredith Carrera PA-C [address] [place] [address] 514565 Assigned Gastroenterology Provider 11/01/23 Neil Kent MD [address] [place] [address] 664200 Dermatology 11/02/23 [place] [address] [place] [address] Neurological Surgery 12/26/23 Audrey Waite PA-C 500 [place] [address] Physician Entry Manager Dermatology 02/28/24 documented as of this encounter
--- OUTSIDE RECORDS SUMMARY | 2024-03-23 15:54 | XMS_ITS | Encounter Summary ---
Author Organization [place] Address [address] [place] [address]148 Care Team Providers Care Internal Affairs Investigator Name Role Phone Thang Diana [place] [facility] Unavailable Rain Galaviz PA-C Unavailable [phone] Tavia Wyatt MD Unavailable Unavailable Erica Farrell APRN CLOTH DYER Unavailable Rich Barrett MD Unavailable Neil Kent MD Unavailable Diana Desir Stanislav [facility] Unavailable [phone] Livan Sharif MD Unavailable Catherine Cm MD Unavailable + Valery Veronica PA-C Unavailable [phone] Brea Quinn CAMPUS PRESIDENT CLOTH DYER Unavailable Brea Quinn CAMPUS PRESIDENT CLOTH DYER Unavailable Jose Francisco Johnson MD Unavailable Alfonso Renteria MD Unavailable + [phone] Esha Grimm PA-C Primary Care Provider [phone] Radha Lomeli CAMPUS PRESIDENT CLOTH DYER Unavailable [phone] Jelena David OD Unavailable [phone] Esha Grimm PA-C Unavailable [phone] Valery Veronica-C Unavailable [phone] Rey Tay MD Unavailable Rocky Zepeda DO Unavailable Philip Dumont MD Unavailable [phone] Meredith Carrera PA-C Unavailable [phone] Neil Kent MD Unavailable Juan Pablo Emmanuel MD Unavailable [phone] Audrey Waite PA-C Unavailable [phone] Encounter Details Date Type Department Care Team [...] Date Recorded PHQ-2 Score 1 02/07/2024 [facility]ational [...] exercise at this level? 30 min 03/10/2023 [place] Depression Scale Answer Date Recorded [place] Depression Score 5 01/14/2021 Last EPDS Self [...] Description 03/26/2024 11:20 AM CDT Office Visit [facility] Spine and Neurosurgery [address] [place] [address] 100 [place] [phone] Ebony Cid, CAMPUS PRESIDENT [facility] 500 [place] [address] 03/27/2024 11:00 AM CDT Office Visit [facility] [address] [facility] [address] [place] [phone] Jelena David, 3305 [facility] [place] [address] 03/29/2024 3:30 PM CDT Therapy Visit [facility] [address] [place] [address] [address] [place] [phone] Ingris Thompson, PT [facility] [address] [place] [address] 106 [place] [address] 04/05/2024 2:10 PM CDT Therapy Visit [facility] [address] [facility] [address] [place] [address] Ingris Thompson, PT [facility] [address] [facility] 106 [place], [place] 0[address]355 04/19/2024 2:45 PM CDT Office Visit [facility] 830 [place] [phone] Audrey Waite PA-C [address], [facility] 603 [place] [address] 05/08/2024 1:30 PM CDT Office Visit [facility] [address]77 [place] [address] Lauren Claudio PA-C [address] [place], [place] [phone] Esha Grimm PA-C [address]994 [place] [phone] 06/21/2024 2:00 PM CHIEF KNOWLEDGE OFFICER Office Visit [facility] Neurology Clinics - [address], [address] [place] [phone] [place] [address] [place], [place] [phone] Johnny Penn MD [address] [place] [address] documented as of this encounter Visit Diagnoses Not on filedocumented in this encounter Additional Health Concerns Assessment Noted Time PHQ-9 Depression Total Score: 3 02/07/20 24 9:33 AM CDT documented as of this encounter Care Teams Internal Affairs Investigator Relationship Specialty Start Date End Date Esha Grimm PA-C [address] [place] [address] PCP - General Family Medicine 05/04/23 Diana Desir, [facility] [address] [place] [address] Pharmacist Pharmacist 04/17/21 Rain Galaviz PA-C [address] [place] [address] [address] [place] [address] Physician Heavy Threader Dermatology 04/28/21 Tavia Wyatt MD [address] [place] [address] [address] [place] [address] Dermatology 07/14/21 Erica Farrell APRN CLOTH DYER [address] [place], [place] 124095 Nurse Practitioner Cardiovascular Disease 09/09/21 Rich Barrett MD [address] 427915 Physician Ophthalmology 01/21/22 Neil Kent MD [address] [place] [address] 274235 Dermatology 02/24/22 Diana Desir, [facility] [address] [place] [address] Assigned MTM Pharmacist 04/07/22 Livan Sharif MD [address] [facility] [address] [place] 389705 Cardiovascular Disease 05/14/22 Catherine Cm MD 6405 [facility] [address] [place] [address] Cardiovascular Disease 07/21/22 Valery Veronica, PA-C [address] [place] [address] Physician Heavy Threader Dermatology 07/21/22 Brea Quinn APRN CLOTH DYER [address] [place] [address] 170525 Nurse Practitioner Dermatology 09/21/22 Brea Quinn APRN CLOTH DYER [address] [place] [address] 22533 Assigned Surgical Provider 10/09/22 [place] [address] [place] [address] 456[address] Assigned Musculoskeletal Provider 10/09/22 Alfonso Renteria MD 5775 [facility] 200 [place] [address] Assigned Neuroscience Provider 04/02/23 Radha Lomeli APRN CLOTH DYER [address] [place] [id number] [place] 398015 Assigned Heart and Vascular Provider 05/28/23 Jelena David OD 3305 [facility] [place] [id number] MD Ophthalmology 06/15/23 Esha Grimm PA-C 12717 [place] [phone] Assigned PCP 07/16/23 Valery Veronica PA-C [address] [place] [address] 176885 Physician Heavy Threader Dermatology 09/19/23 Rey Tay MD [address] [place] [address] 511235 MD Gastroenterology 09/20/23 Rocky Zepeda DO [address] [place] [address] 537025 Physician Gastroenterology 09/20/23 Philip Dumont MD [address] [place] [address] 972295 Physician Ophthalmology 09/22/23 Meredith Carrera PA-C [address] [place] [address] 295955 Assigned Gastroenterology Provider 11/01/23 Neil Kent MD [address] [place] [address] Dermatology 11/02/23 [place] [address] [place] [address] Neurological Surgery 12/26/23 Audrey Waite PA-C 500 [place] [address] Physician Heavy Threader Dermatology 02/28/24 documented as of this encounter
--- OUTSIDE RECORDS SUMMARY | 2024-03-23 15:54 | XMS_ITS | Encounter Summary ---
Author Organization [place] Address [address] [place] [address]242 Care Team Providers Care Public Utilities Sales Representative Name Role Phone Thang Diana [place] [facility] Unavailable [phone] Rain Galaviz PA-C Unavailable Tavia Wyatt MD Unavailable Unavailable Erica Farrell APRN POLE INCISOR OPERATOR Unavailable Rich Barrett MD Unavailable Neil Kent MD Unavailable Diana Desir Stanislav [facility] Unavailable [phone] Livan Sharif MD Unavailable Catherine Cm MD Unavailable + Valery Veronica PA-C Unavailable [phone] Brea Quinn SENIOR CAREGIVER POLE INCISOR OPERATOR Unavailable [phone] Brea Quinn SENIOR CAREGIVER POLE INCISOR OPERATOR Unavailable Jose Francisco Johnson MD Unavailable Alfonso Renteria MD Unavailable + [phone] Esha Grimm PA-C Primary Care Provider [phone] Radha Lomeli SENIOR CAREGIVER POLE INCISOR OPERATOR Unavailable [phone] Jelena David OD Unavailable [phone] Esha GrimmC Unavailable [phone] Valery VeronicaC Unavailable [phone] Rey Tay MD Unavailable Rocky Zepeda DO Unavailable Philip Dumont MD Unavailable [phone] Meredith CarreraC Unavailable [phone] Neil Kent MD Unavailable Juan Pablo Emmanuel MD Unavailable [phone] Encounter Details Date Type Department Care Team [...] attend [facility] or scientologist services? 1 to 4 [...] 1 02/07/2024 [facility] Occupat ional [facility] - Occupational Stress Questionnaire [...] exercise at this level? 30 min 03/10/2023 [place] Depression Scale Answer Date Recorded [place] Depression Score 5 01/14/2021 Last EPDS Self [...] [facility] Spine and Neurosurgery 1747 [facility] 100 [place] [address] Ebony Cid, SENIOR CAREGIVER [facility] 500 [place], [place] 101495 03/27/2024 11:00 AM CDT Office Visit [facility] 3305 [facility] [address] [place] [phone] Jelena David, 3305 [facility] [place] [address] 03/29/2024 3:30 PM CDT Therapy Visit [facility] [address] [place] [address] 160 [place] [phone] Ingris Thompson, PT [facility] [address] [place] [address] 914715 04/05/2024 2:10 PM CDT Therapy Visit [address] [place] [phone] Ingris Thompson, PT [facility] [address] [place] [address] 04/19/2024 2:45 PM CDT Office Visit [address] [phone] Audrey Waite PA-C [address], [facility] 603 [place], [place] 261285 05/08/2024 1:30 PM CDT Office Visit [facility] [address] [place] [address] Lauren Claudio PA-C [address] [place] [address] Esha Grimm PA-C [address] [place] [address] 06/21/2024 2:00 PM TRAINMASTER Office Visit [facility] Neurology [facility] - [address], [address] [place] [address] [place] [address] [place] [address] Johnny Penn MD 6545 [place] [address] documented as of this encounter Visit Diagnoses Not on filedocumented in this encounter Additional Health Concerns Assessment Noted Time PHQ-9 Depression Total Score: 3 02/07/20 24 9:33 AM CDT documented as of this encounter Care Teams Public Utilities Sales Representative Relationship Specialty Start Date End Date Esha Grimm PA-C [id number] [place] [address] PCP - General Family Medicine 05/04/23 Diana Desir, [facility] 3033 [place] [address] Pharmacist Pharmacist 04/17/21 Rain Galaviz PA-C [address] [place] [address] [address] [place] [address] Physician Health Program Manager Dermatology 04/28/21 Tavia Wyatt MD [address] [place] [address] [address] [facility] [place] [address] Dermatology 07/14/21 Erica Farrell APRN POLE INCISOR OPERATOR [address] [place] 940455 Nurse Practitioner Cardiovascular Disease 09/09/21 Rich Barrett MD [address] [place] [address] 390055 Physician Ophthalmology 01/21/22 Neil Kent MD [address] [place] [address] 341075 Dermatology 02/24/22 Diana Desir, [facility] [address] [place] [address] Assigned MTM Pharmacist 04/07/22 Livan Sharif MD [address] [place] 724025 Cardiovascular Disease 05/14/22 Catherine Cm MD [address] [facility] [address] [place] [address] Cardiovascular Disease 07/21/22 Valery Veronica PA-C 909 [place], [place] 387025 Physician Health Program Manager Dermatology 07/21/22 Brea Quinn APRN POLE INCISOR OPERATOR 500 [place], [place] 742145 Nurse Practitioner Dermatology 09/21/22 Brea Quinn APRN POLE INCISOR OPERATOR [address] [facility] [place] 367202 Assigned Surgical Provider 10/09/22 [place] [address] [place] [address] Assigned Musculoskeletal Provider 10/09/22 Alfonso Renteria MD 5775 [facility] 200 [place], [place] 298916 Assigned Neuroscience Provider 04/02/23 Radha Lomeli APRN POLE INCISOR OPERATOR 6405 [facility] [address] [place] [address] Assigned Heart and Vascular Provider 05/28/23 Jelena David OD [address] [place] [address] Ophthalmology 06/15/23 Esha Grimm PA-C [address] [place] [address]-932383 Assigned PCP 07/16/23 Valery Veronica PA-C [address] [place] [address] Physician Health Program Manager Dermatology 09/19/23 Rey Tay MD [address] [place] [address] MD Gastroenterology 09/20/23 Rocky Zepeda DO [address] [place] [address] Physician Gastroenterology 09/20/23 Philip Dumont MD [address] [place] [address] Physician Ophthalmology 09/22/23 Meredith Carrera PA-C [address] [place] [address] Assigned Gastroenterology Provider 11/01/23 Neil Kent MD [address] [address] Dermatology 11/02/23 [place] [address] [place] [address] Neurological Surgery 12/26/23 documented as of this encounter
--- OUTSIDE RECORDS SUMMARY | 2024-03-23 15:54 | XMS_ITS | Encounter Summary ---
Author Organization [place] Address [address] [place] [address]26 Care Team Providers Care Anesthesiology Teacher Name Role Phone Thang Diana [place] [facility] Unavailable Rain Galaviz PA-C Unavailable Tavia Wyatt MD Unavailable Unavailable Erica Farrell APRN BIG 6 DEALER Unavailable Rich Barrett MD Unavailable Neil Kent MD Unavailable Diana Desir Stanislav [facility] Unavailable [phone] Livan Sharif MD Unavailable Catherine Cm MD Unavailable + Valery Veronica PA-C Unavailable [phone] Brea Quinn CUSTOMER OPERATIONS SPECIALIST BIG 6 DEALER Unavailable Brea Quinn CUSTOMER OPERATIONS SPECIALIST BIG 6 DEALER Unavailable Jose Francisco Johnson MD Unavailable Alfonso Renteria MD Unavailable + [phone] Esha Grimm PA-C Primary Care Provider [phone] Radha Lomeli CUSTOMER OPERATIONS SPECIALIST BIG 6 DEALER Unavailable [phone] FrankieJelena OD Unavailable [facility] PA-C Unavailable [phone] Valery Veronica PA-C Unavailable Rey Tay MD Unavailable Duane Rockyanne [place] Unavailable Philip Dumont MD Unavailable [phone] Meredith Carrera PA-C Unavailable [phone] Neil Kent MD Unavailable Juan Pablo Emmanuel MD Unavailable [phone] Audrey Waite PA-C Unavailable [phone] Reason for Visit * Reason Onset Date Comments Pt. Information/instruction 02/28/2024 EGD Encounter Details Date Type Department Care Team ([facility] Contact Info) Description 02/28/2024 Telephone [facility] Endoscopy 500 [place] [address] Annabelle Wetzel, VJ Pt. Information/instruction [...] Answer Date Recorded PHQ-2 Score 1 02/07/2024 [facility] of Occupat ional Health [...] exercise at this level? 30 min 03/10/2023 [place] Depression Scale Answer Date Recorded [place] Depression Score 5 01/14/2021 Last EPDS Self [...] answer. Left message to return call to [phone] #4 by next day prior to 4PM or procedure will be sent to cancel. Callback required communication sent via [employer]. Annabelle Wetzel RN Endoscopy Procedure Pre Assessment * Telephone Encounter - Rain Burnette RN - 02/28/2024 4:04 PM CDT Attempted to contact patient in order to complete pre assessment questions. Patient scheduled for Upper endoscopy (EGD) on 03/07/24 No answer. Left message to return call to [phone] option 4 Callback required communication sent via [employer]. Rain Burnette RN Endoscopy Procedure Pre Assessment * Telephone Encounter - Annabelle Wetzel RN - 02/28/2024 3:48 PM CDT Pre visit planning completed. Procedure details: Patient scheduled for Upper endoscopy (EGD) on 03/07/24. Arrival time: 0800. Procedure time 0900 Facility location: [facility]; [address] [place] [address], 5th Floor, [place] [address]. Check in location: 5th Floor. Sedation type: [...] Prep for procedure: Prep instructions sent via [employer] Annabelle Wetzel RN Endoscopy Procedure Pre glass smoother [phone] option 4 documented in this encounter Plan of Treatment Upcoming Encounters Date Type Department Care Team (Late st Contact Info) Description 03/26/2024 11:20 AM CDT Office Visit [facility] Spine and Neurosurgery [address] [place] [address] [address] [place] [address] Ebony Cid, CUSTOMER OPERATIONS SPECIALIST BIG 6 DEALER 500 [place] [address] 03/27/2024 11:00 AM CDT Office Visit [facility] Keven German [address] [facility] [address] [place] [phone] Jelena David, OD 3305 [facility] [place] [address] 03/29/2024 3:30 PM CDT Therapy Visit [facility] Rehabilitation Services [address] [place] [phone] Ingris Thompson, PT [facility] 6 [facility] 106 [place], [place] 171355 04/05/2024 2:10 PM CDT Therapy Visit [facility] Rehabilitation Services [place] [address] [facility] 160 [place] [address] Ingris Thompson, PT [facility] 6 [facility] 106 [place], [place] 371525 04/19/2024 2:45 PM CDT Office Visit [address] [phone] Audrey Waite PA-C 420 [facility] B385, [facility] 603 [place], [place] 739595 05/08/2024 1:30 PM CDT Office Visit [facility] [address] [place] [address] Lauren Claudio PA-C [address] [place], [place] [phone] Esha Grimm PA-C [address] [place] [address] 06/21/2024 2:00 PM DIGITAL MANAGER Office Visit [facility] Neurology Clinics - [address], [address] [place] [address] [place] [address] [place], [place] 885387 IsamarJohnny farnsworth MD [address] [place] [address] documented as of this encounter Visit Diagnoses Not on filedocumented in this encounter Additional Health Concerns Assessment Noted Time PHQ-9 Depression Total Score: 3 02/07/20 24 9:33 AM CDT documented as of this encounter Care Teams Anesthesiology Teacher Relationship Specialty Start Date End Date Esha Grimm PA-C [address] [place] [address]455883 PCP - General Family Medicine 05/04/23 Diana Desir, [facility] [address] [place] [address] Pharmacist Pharmacist 04/17/21 Rain Galaviz PA-C [address] [place] [address] [address] [place] [address] Physician Youth Support Worker Dermatology 04/28/21 Tavia Wyatt MD [address] [place] [address] [address] [place] [address] Dermatology 07/14/21 Erica Farrell APRN BIG 6 DEALER [address] [place] [address] Nurse Practitioner Cardiovascular Disease 09/09/21 Rich Barrett MD [address] 012775 Physician Ophthalmology 01/21/22 Neil Kent MD 500 [place], [place] 653724[address] Dermatology 02/24/22 Diana Desir, [facility] 3033 [place], [place] [phone] Assigned MTM Pharmacist 04/07/22 Livan Sharif MD [address] [facility]200 [place], [place] 724165 Cardiovascular Disease 05/14/22 Catherine Cm MD [address] 345385 Cardiovascular Disease 07/21/22 Valery Veronica, PA-C [address] [place] [address] 549055 Physician Youth Support Worker Dermatology 07/21/22 Brea Quinn APRN BIG 6 DEALER [address] [place] [address] [phone] Nurse Practitioner Dermatology 09/21/22 Brea Quinn APRN BIG 6 DEALER [address] [place] [address] 126682 Assigned Surgical Provider 10/09/22 [place] [address] 658797 Assigned Musculoskeletal Provider 10/09/22 Alfonso Renteria MD 5775 [facility] 200 [place], [place] 25041416 Assigned Neuroscience Provider 04/02/23 Armani Radha Stovall CUSTOMER OPERATIONS SPECIALIST BIG 6 DEALER [address] [place], [place] 115525 Assigned Heart and Vascular Provider 05/28/23 Jelena David OD [address] [facility] [place] [address] MD Ophthalmology 06/15/23 Esha Grimm PA-C [address] [place] [phone] Assigned PCP 07/16/23 Valery Veronica PA-C [address] [place] [address] 768685 Physician Youth Support Worker Dermatology 09/19/23 Rey Tay MD [address] [place] [address] 061745 Gastroenterology 09/20/23 Rocky Zepeda DO [address] [place] [address] 478105 Physician Gastroenterology 09/20/23 Philip Dumont MD [address] [place] [address] Physician Ophthalmology 09/22/23 Meredith Carrera PA-C [address] [place] [address] Assigned Gastroenterology Provider 11/01/23 Neil Kent MD [address] [place] [address] Dermatology 11/02/23 [place] [address] [place] [address] Neurological Surgery 12/26/23 Audrey Waite PA-C 500 [place] [address] Physician Youth Support Worker Dermatology 02/28/24 documented as of this encounter
--- OUTSIDE RECORDS SUMMARY | 2024-03-23 15:55 | XMS_ITS | Encounter Summary ---
Author Organization [facility] Address [address] [place] [address] Care Team Providers Care Tableau Architect Name Role Phone Thang Diana [place] [facility] Unavailable Rain Galaviz PA-C Unavailable Tavia Wyatt MD Unavailable Unavailable Erica Farrell APRN ELECTRICAL CALIBRATOR Unavailable Rich Barrett MD Unavailable Neil Kent MD Unavailable Diana Desir Stanislav [facility] Unavailable [phone] Livan Sharif MD Unavailable Catherine Cm MD Unavailable + Valery Veronica PA-C Unavailable [phone] Brea Quinn FISHING GEAR MECHANIC ELECTRICAL CALIBRATOR Unavailable Brea Quinn FISHING GEAR MECHANIC ELECTRICAL CALIBRATOR Unavailable Jose Francisco Johnson MD Unavailable Alfonso Renteria MD Unavailable + [phone] Esha Grimm PA-C Primary Care Provider [phone] Radha Lomeli FISHING GEAR MECHANIC ELECTRICAL CALIBRATOR Unavailable [phone] Jelena David OD Unavailable Esha GrimmC Unavailable [phone] Valery VeronicaC Unavailable [phone] Rey Tay MD Unavailable Rocky Zepeda DO Unavailable Philip Dumont MD Unavailable [phone] Meredith CarreraC Unavailable [phone] Neil Kent MD Unavailable Juan Pablo Emmanuel MD Unavailable [phone] Encounter Details Date Type Department Care Team [...] often do you attend [facility]? 1 to 4 times [...] 10/25/2023 [facility] of Occupat ional [facility] - [...] exercise at this level? 30 min 03/10/2023 [place] Depression Scale Answer Date Recorded [place] Depression Score 5 01/14/2021 Last EPDS Self [...] Description 03/26/2024 11:20 AM CDT Office Visit [facility]surgery 1747 [facility] 100 [place] [address] Ebony Cid, FISHING GEAR MECHANIC [facility] 500 [place], [place] 9[address]65 03/27/2024 11:00 AM CDT Office Visit [facility] 3305 [facility] [address] [place] [phone] Jelena David, 3[address] [facility] [place] [address] 03/29/2024 3:30 PM CDT Therapy Visit [facility] [address] [place] [address] 160 [place] [phone] Ingris Thompson, PT [facility] [address] [place] [address] 832025 04/05/2024 2:10 PM CDT Therapy Visit [address] [place] [phone] Ingris Thompson, PT [facility] [address] [place] [address] 04/19/2024 2:45 PM CDT Office Visit [address] [phone] Audrey Waite PA-C [address], [facility] 603 [place], [place] 363925 05/08/2024 1:30 PM CDT Office Visit [facility] [address] [place] [address] Lauren Claudio PA-C [address] [place] [address] Esha Grimm PA-C [id number] [place] [address] 06/21/2024 2:00 PM TAX COMPLIANCE REPRESENTATIVE Office Visit [facility] Neurology Clinics - [address], [address] [place] [address] [place] [address] [place] [address] Johnny Penn MD 6545 [place] [address] documented as of this encounter Visit Diagnoses Not on filedocumented in this encounter Additional Health Concerns Assessment Noted Time PHQ-9 Depression Total Score: 4 06/20/20 23 8:40 AM TAX COMPLIANCE REPRESENTATIVE documented as of this encounter Care Teams Tableau Architect Relationship Specialty Start Date End Date Esha Grimm PA-C [id number] [place] [address] PCP - General Family Medicine 05/04/23 Diana Desir, [facility] 3033 [place] [address] Pharmacist Pharmacist 04/17/21 Rain Galaviz PA-C [address] [place] [address] [address] [place] [address] Physician Concrete Buildings Assembler Dermatology 04/28/21 Tavia Wyatt MD [address] [place] [address] [facility] [address] Dermatology 07/14/21 Erica Farrell APRN ELECTRICAL CALIBRATOR [address] [place] [address] Nurse Practitioner Cardiovascular Disease 09/09/21 Rich Barrett MD [address] [place] [address] 547145 Physician Ophthalmology 01/21/22 Neil Kent MD [address] [place] [address] 905765 Dermatology 02/24/22 Diana Desir, [facility] [address] [place] [address] Assigned MTM Pharmacist 04/07/22 Livan Sharif MD [address] [place] 654885 Cardiovascular Disease 05/14/22 Catherine Cm MD [address] [facility] [address] [place] [address] Cardiovascular Disease 07/21/22 Valery Veronica PA-C 909 [place], [place] 318335 Physician Concrete Buildings Assembler Dermatology 07/21/22 Brea Quinn APRN ELECTRICAL CALIBRATOR 500 [place], [place] 689075 Nurse Practitioner Dermatology 09/21/22 Brea Quinn APRN ELECTRICAL CALIBRATOR 6401 [facility] [place] 338832 Assigned Surgical Provider 10/09/22 [place] [address] [address] [facility] 300 [place] [address] Assigned Musculoskeletal Provider 10/09/22 Alfonso Renteria MD [address] [facility] 200 [place], [place] 624396 Assigned Neuroscience Provider 04/02/23 Radha Lomeli APRN ELECTRICAL CALIBRATOR 6405 [facility] [address] [place] [address] Assigned Heart and Vascular Provider 05/28/23 Jelena David OD [address] [facility] [place] [address] Ophthalmology 06/15/23 Esha Grimm PA-C [address] [place] [address]825483 Assigned PCP 07/16/23 Valery Veronica PA-C [address] [place] [address] Physician Concrete Buildings Assembler Dermatology 09/19/23 Rey Tay MD [address] [place] [address] MD Gastroenterology 09/20/23 Rocky Zepeda DO [address] [place] [address] Physician Gastroenterology 09/20/23 Philip Dumont MD [address] [place] [address] Physician Ophthalmology 09/22/23 Meredith Carrera PA-C [address] [place] [address] Assigned Gastroenterology Provider 11/01/23 Neil Kent MD [address] [address] Dermatology 11/02/23 [place] [address] [place] [address] Neurological Surgery 12/26/23 documented as of this encounter
--- OUTSIDE RECORDS SUMMARY | 2024-03-23 15:55 | XMS_ITS | Encounter Summary ---
Author Organization [facility] Address [address] [place] [address] Care Team Providers Care Licensing And Registration Director Name Role Phone Thang Diana [place] [facility] Unavailable Rain Galaviz PA-C Unavailable Tavia Wyatt MD Unavailable Unavailable Erica Farrell APRN STEM SHAPER Unavailable Rich Barrett MD Unavailable Neil Kent MD Unavailable Diana Desir Stanislav [facility] Unavailable [phone] Livan Sharif MD Unavailable Catherine Cm MD Unavailable + Valery Veronica PA-C Unavailable [phone] Brea Quinn COMMUNITY ARTS WORKER STEM SHAPER Unavailable Brea Quinn COMMUNITY ARTS WORKER STEM SHAPER Unavailable [phone] Jose Francisco Johnson MD Unavailable Alfonso Renteria MD Unavailable + [phone] Esha Grimm PA-C Primary Care Provider Radha Lomeli COMMUNITY ARTS WORKER STEM SHAPER Unavailable [phone] Jelena David OD Unavailable [phone] Esha GrimmC Unavailable [phone] Valery VeronicaC Unavailable [phone] Rey Tay MD Unavailable Rocky Zepeda DO Unavailable Philip Dumont MD Unavailable [phone] Meredith CarreraC Unavailable [phone] Neil Kent MD Unavailable Juan Pablo Emmanuel MD Unavailable [phone] Encounter Details Date Type Department Care Team [...] How often do you attend [facility] or church services? 1 to 4 [...] Score 0 10/25/2023 [facility] of Occupat ional [facility] - Occupational Stress Questionnaire Answer [...] [facility] Spine and Neurosurgery [address] [facility] 100 [place] [address] Ebnoy Cid, COMMUNITY ARTS WORKER [facility] 500 [place], [place] 566515 03/27/2024 11:00 AM CDT Office Visit [facility] 3305 [facility] [address] [place] [phone] Jelena David, 3305 [facility] [place] [address] 03/29/2024 3:30 PM CDT Therapy Visit [facility] [address] [place] [address] 160 [place] [phone] Ingris Thompson, PT [facility] [address] [place] [address] 439535 04/05/2024 2:10 PM CDT Therapy Visit [address] [place] [phone] Ingris Thompson, PT [facility] [address] [place] [address] 04/19/2024 2:45 PM CDT Office Visit [address] [phone] Audrey Waite PA-C [address], [facility] 603 [place], [place] 813675 05/08/2024 1:30 PM CDT Office Visit [facility] [address] [place] [address] Lauren Claudio PA-C [address] [place] [address] Esha Grimm PA-C [id number] [place] [address] 06/21/2024 2:00 PM COMMERCIAL ACCOUNT OFFICER Office Visit [facility] Neurology Clinics - [address], [address] [place] [address] [place] [address] [place] [address] Johnny Penn MD 6545 [place] [address] documented as of this encounter Visit Diagnoses Not on filedocumented in this encounter Additional Health Concerns Assessment Noted Time PHQ-9 Depression Total Score: 4 06/20/20 23 8:40 AM COMMERCIAL ACCOUNT OFFICER documented as of this encounter Care Teams Licensing And Registration Director Relationship Specialty Start Date End Date Esha Grimm PA-C [id number] [place] [address] PCP - General Family Medicine 05/04/23 Diana Desir, [facility] 3033 [place] [address] Pharmacist Pharmacist 04/17/21 Rain Galaviz PA-C [address] [place] [address] [address] [place] [address] Physician Receiver Dermatology 04/28/21 Tavia Wyatt MD [address] [place] [address] DR [facility] [address] Dermatology 07/14/21 Erica Farrell APRN STEM SHAPER [address] [place] 332475 Nurse Practitioner Cardiovascular Disease 09/09/21 iRch Barrett MD [address] [place] [address] 733215 Physician Ophthalmology 01/21/22 Neil Kent MD [address] [place] [address] 901475 Dermatology 02/24/22 Diana Desir, [facility] [address] [place] [address] Assigned MTM Pharmacist 04/07/22 Livan Sharif MD [address] [place] 042995 Cardiovascular Disease 05/14/22 Catherine Cm MD 6[address] [facility] [address] [place] [address] Cardiovascular Disease 07/21/22 Valery Veronica PA-C [address]09 [place], [place] 036535 Physician Receiver Dermatology 07/21/22 Brea Quinn APRN STEM SHAPER 500 [place], [place] 857145 Nurse Practitioner Dermatology 09/21/22 Brea Quinn APRN STEM SHAPER 6401 [facility] [place] 063262 Assigned Surgical Provider 10/09/22 [place] [address] [address] [facility] 300 [place] [address] Assigned Musculoskeletal Provider 10/09/22 Alfonso Renteria MD 5775 [facility] 200 [place], [place] 207996 Assigned Neuroscience Provider 04/02/23 Radha Lomeli APRN STEM SHAPER 6405 [facility] W200 [place] [address] Assigned Heart and Vascular Provider 05/28/23 Jelena David OD 3305 [facility] [place] [address] Ophthalmology 06/15/23 Esha Grimm PA-C [address] [place] [address]366283 Assigned PCP 07/16/23 Valery Veronica PA-C [address] [place] [address] Physician Receiver Dermatology 09/19/23 Rey Tay MD [address] [place] [address] MD Gastroenterology 09/20/23 Rocky Zepeda DO [address] [place] [address] Physician Gastroenterology 09/20/23 Philip Dumont MD [address] [place] [address] Physician Ophthalmology 09/22/23 Meredith Carrera PA-C [address] [place] [address] Assigned Gastroenterology Provider 11/01/23 Neil Kent MD [address] [address] Dermatology 11/02/23 [place] [address] [place] [address] Neurological Surgery 12/26/23 documented as of this encounter
--- OUTSIDE RECORDS SUMMARY | 2024-03-23 15:55 | XMS_ITS | Encounter Summary ---
Author Organization [facility] Address [address] [place] [address] Care Team Providers Care Header Machine Operator Name Role Phone Thang Diana [place] [facility] Unavailable [phone] Rain Galaviz PA-C Unavailable Tavia Wyatt MD Unavailable Unavailable Erica Farrell APRN BITUMEN PLANT OPERATOR Unavailable Rich Barrett MD Unavailable Neil Kent MD Unavailable Diana Desir Stanislav [facility] Unavailable [phone] Livan Sharif MD Unavailable Catherine Cm MD Unavailable + Valery Veronica PA-C Unavailable [phone] Brea Quinn BREAD JOCKEY BITUMEN PLANT OPERATOR Unavailable Brea Quinn BREAD JOCKEY BITUMEN PLANT OPERATOR Unavailable Jose Francisco Johnson MD Unavailable Alfonso Renteria MD Unavailable + [phone] Esha Grimm PA-C Primary Care Provider Radha Lomeli BREAD JOCKEY BITUMEN PLANT OPERATOR Unavailable [phone] Jelena David OD Unavailable [phone] Esha Grimm PA-C Unavailable [phone] Valery VeronicaC Unavailable Rey Tay MD Unavailable Duane Rocky DO Unavailable Philip Dumont MD Unavailable Meredith CarreraC Unavailable Neil Kent MD Unavailable Juan Pablo Emmanuel MD Unavailable Encounter Details Date Type Department Care Team (Late st Contact Info) Description 01/16/2024 Telephone [facility] [address] [place] [phone] Esha Grimm PA-C [id number] [place] [phone] Social History Tobacco Use Types Packs/Day [...] do you attend chur or baptist services? 1 to 4 times [...] Answer Date Recorded PHQ-2 Score 0 10/25/2023 [facility] of Occupat ional [...] exercise at this level? 30 min 03/10/2023 [place] Depression Scale Answer Date Recorded [place] Depression Score 5 01/14/2021 Last EPDS Self [...] PM CDT Completed letter and available on [employer]. Esha Grimm PA-C on 01/17/2024 at 3:31 PM * Telephone Encounter - America Shahid CMA - 01/17/2024 11:10 AM CDT Pt will print letter from [employer] * Telephone Encounter - America Shahid CMA - 01/16/2024 4:11 PM CDT LM for pt to call back. * Telephone Encounter - Esha Grimm PA-C - 01/16/2024 4:01 PM CDT Can we call patient to see if this letter can be done electronically or if she needs a signed copy for school? I can write this tomorrow and have available at the assistant front office manager for molded goods spot picker if needs to be a signed [...] on the letter are: ER dates 01/07/2024 ([facility]) and 01/11/2024 ([facility]) Ortho dates are 01/05/2024 and 01/06/2024. * Telephone Encounter - Donna Artis - 01/16/2024 9:44 AM CDT General Call Reason for Call: patient called and needs a letter from Esha ALCALA at [facility] today. Patient was in the E/R and had MRI and was also seen at [facility] as well. Chest tightness and racing heartbeat. Orthopedics and MRI. Please contact patient. Thank you. What are your questions or concerns: yes Date of last appointment with provider: Aug 2023 Could we send this information to you in Lumi[place] or would you prefer to receive a phone call?: Patient would prefer a phone call Okay to leave a detailed message?: Yes at Cell number on file: Telephone Information: documented in this encounter Plan of Treatment Upcoming Encounters Date Type Department Care Team (Late st Contact Info) Description 03/26/2024 11:20 AM CDT Office Visit [facility] Spine and Neurosurgery [address] [place], [place] [address], [place] [address] Ebony Cid, BREAD JOCKEY [facility] 500 [place] [address] 03/27/2024 11:00 AM CDT [facility] [facility] [address] [place] [phone] Jelena David, OD [address] [facility] [place] [address] 03/29/2024 3:30 PM CDT Therapy Visit [facility] [address] [place] [address] 160 [place] [phone] Ingris Thompson, PT [facility] [address] [place] [address] 04/05/2024 2:10 PM CDT Therapy Visit [facility] [address] [place] [address] 160 [place] [phone] [facility]gris Thompson, PT [facility] [address] [place] [address] 106 [place] [address] 04/19/2024 2:45 PM CDT Office Visit [facility] 830 [place] [phone] Audrey Waite PA-C 420 [facility] B385, [facility] 603 [place] [address] 05/08/2024 1:30 PM CDT Office Visit [facility] [address] [place] [phone] Lauren Claudio PA-C [address] [place], [place] [phone] Esha Grimm PA-C [address] [place] [phone] 06/21/2024 2:00 PM CREPE SOLE SCOURER Office Visit [facility] Neurology [facility] 6545 [facility], [address] [place] [phone] [place] [address] [place], [place] [phone] Johnny Penn MD 0234 [place], [place] 206475 documented as of this encounter Visit Diagnoses Not on filedocumented in this encounter Additional Health Concerns Assessment Noted Time PHQ-9 Depression Total Score: 4 06/20/20 23 8:40 AM CREPE SOLE SCOURER documented as of this encounter Care Teams Header Machine Operator Relationship Specialty Start Date End Date Esha Grimm PA-C [address] [place] [phone] PCP - General Family Medicine 05/04/23 Diana Desir, [facility] [address] [facility] [facility] [place] [address] Pharmacist Pharmacist 04/17/21 Rain Galaviz PA-C [address] [place] [address] [address] [place] [address] Physician Principal Investigator Dermatology 04/28/21 Tavia Waytt MD [address] [place] [address] [address] [place] [address] Dermatology 07/14/21 Ercia Farrlel APRN BITUMEN PLANT OPERATOR [address] [place], [place] 497835 Nurse Practitioner Cardiovascular Disease 09/09/21 Rich Barrett MD 516 [facility] 9A [place] [address] Physician Ophthalmology 01/21/22 Neil Kent MD 500 [place] [address] Dermatology 02/24/22 Diana Desir, [facility] [address] [place], [place] 455496 Assigned MTM Pharmacist 04/07/22 Livan Sharif MD [address], [facility]00 [place], [place] 9[address]65 Cardiovascular Disease 05/14/22 Catherine Cm MD [address] 098095 Cardiovascular Disease 07/21/22 Valery Veronica PAUcheC 909 [place], [place] 604265 Physician Principal Investigator Dermatology 07/21/22 Brea Quinn APRN BITUMEN PLANT OPERATOR 500 [place], [place] 309035 Nurse Practitioner Dermatology 09/21/22 Brea Quinn APRN BITUMEN PLANT OPERATOR 6401 [facility] [place] [address] Assigned Surgical Provider 10/09/22 [place] [address] [address] [facility] 300 [place] [address] Assigned Musculoskeletal Provider 10/09/22 Alfonso Renteria MD [address] [facility] 200 [place], [place] 38089416 Assigned Neuroscience Provider 04/02/23 Radha Lomeli APRN BITUMEN PLANT OPERATOR 6405 [facility] [address] [place] [address] Assigned Heart and Vascular Provider 05/28/23 Jelena David OD [address] [facility] [place] [address] Ophthalmology 06/15/23 Esha Grimm PA-C [address] [place] [phone] Assigned PCP 07/16/23 Valery Veronica PA-C [address] [place] [address] 534665 Physician Principal Investigator Dermatology 09/19/23 Rey Tay MD [address] [place], [place] 697885 Gastroenterology 09/20/23 Rocky Zepeda DO [address] [place] [address] Physician Gastroenterology 09/20/23 Philip Dumont MD [address] [place] [address] Physician Ophthalmology 09/22/23 Meredith Carrera PA-C [address] [place] [address] Assigned Gastroenterology Provider 11/01/23 Neil Kent MD [address] [place] [address] Dermatology 11/02/23 [place] [address] [address] Neurological Surgery 12/26/23 documented as of this encounter
--- OUTSIDE RECORDS SUMMARY | 2024-03-23 15:55 | XMS_ITS | Encounter Summary ---
Author Organization [facility] Address [address] [place] [address] Care Team Providers Care Bindery Helper Name Role Phone Thang Diana [place] [facility] Unavailable Rain Galaviz PA-C Unavailable [phone] Tavia Wyatt MD Unavailable Unavailable Erica Farrell APRN LANGUAGES AND LITERATURE INSTRUCTOR Unavailable Rich Barrett MD Unavailable Neil Kent MD Unavailable Diana Desir Stanislav [facility] Unavailable [phone] Livan Sharif MD Unavailable Catherine Cm MD Unavailable + Valery Veronica PA-C Unavailable [phone] Brea Quinn COMMUNITY LEADER LANGUAGES AND LITERATURE INSTRUCTOR Unavailable Brea Quinn COMMUNITY LEADER LANGUAGES AND LITERATURE INSTRUCTOR Unavailable Jose Francisco Johnson MD Unavailable Alfonso Renteria MD Unavailable + [phone] Esha Grimm PA-C Primary Care Provider Radha Lomeli COMMUNITY LEADER LANGUAGES AND LITERATURE INSTRUCTOR Unavailable [phone] Jelena David OD Unavailable Esha Grimm Adam PA-C Unavailable [phone] Michela Veronicanarayan Begum PA-C Unavailable Rey Tay MD Unavailable Rocky Zepeda DO Unavailable Philip Dumont MD Unavailable Meredith Carrera Karyna PA-C Unavailable Neil Kent MD Unavailable Juan Pablo Emmanuel MD Unavailable [phone] Reason for Referral * Consultation (Routine: Next available opening) - Pending Review Specialty Diagnoses / Procedures Referred By Contparviz t Referred To Contact Diagnoses [place] [address] [place] [address] Referral ID Status Reason Start Date Expiration Date V isits Requested Visits Authorized [id number] Pending Review 01/23/2024 01/22/2025 1 1 Question Answer Reason for Referral: General Neurology Scheduling Instructions: [facility] will call you to coordinate your care as prescribed by your provider. If you don't hear from a sales representative rural power within 2 business days, please call . Additional Information: arm paraesthesias Comments Please be aware that coverage of these services is subject to the terms and limitations of your health insurance plan. Call member services at your health plan with any benefit or coverage questions. [facility] will call you to coordinate your care as prescribed by your provider. If you don't hear from a sales representative rural power within 2 business days, please call . * Consultation (Routine: Next available opening) - Pending Review Specialty Diagnoses / Procedures Referred By Contparviz t Referred To Contact Diagnoses [place] [address] [place] [address] Vania Ibrahim MD 420 [facility] [address] [place] [address] Referral ID Status Reason Start Date Expiration Date V isits Requested Visits Authorized [id number] Pending Review 01/23/2024 01/22/2025 1 1 Scheduling Instructions Schedule with Dr. Ibrahim. Question Answer Referral Type: Procedure Procedure: Muscle Injection Injection Type: Trigger Point Scheduling Instructions: [facility] will call you to coordinate your care as prescribed by your provider. If you don't hear from a sales representative rural power within 2 business days, please call . Additional Information: Trigger point injections for the neck Comments Please be aware that coverage of these services is subject to the terms and limitations of your health insurance plan. Call member services at your health plan with any benefit or coverage questions. [facility] will call you to coordinate your care as prescribed by your provider. If you don't hear from a sales representative rural power within 2 business days, please call . Reason for Visit * Reason Comments Consult Encounter Details Date Type Department Care Team ([facility] Contact Info) Description 01/23/2024 10:00 AM CDT Office Visit [facility] Neurology Clinics [address], [address] [place] [address] [place] [address] [place] [address] Neck pain (Primary Dx); Paresthesia [...] Score 0 10/25/2023 [facility] - Occupational Stress Questionnaire [...] exercise at this level? 30 min 03/10/2023 Oxford Depression Scale Answer Date Recorded Oxford Depression Score 5 01/14/2021 Last EPDS Self [...] for trigger point injections with Dr. Ibrahim [facility] will call you to coordinate your care as prescribed by your provider. If you don't hear from a sales representative rural power within 2 business days, please call . Referral to neurology. [facility] will call you to coordinate your care as prescribed by your provider. If you don't hear from a sales representative rural power within 2 business days, please call . Please call us if you have any further questions or concerns. [facility] Neurosurgery Clinic documented in this encounter [...] Ablation SVT; Surgeon: Galo Burrell MD; Location: [facility] CARDIAC RN DOCUMENTATION SPECIALIST ESOPHAGOSCOPY, GASTROSCOPY, DUODENOSCOPY (EGD), COMBINED N/A 06/26/2021 [...] I.U.D. Other Topics Concern Parent/sibling w/ CABG, [place] or angioplasty before 65F 55M? Not Asked [...] 30 min Stress: Stress Concern Present (03/10/2023) [employer] - Occupational Stress Questionnaire Feeling of Stress : To some extent Social Connections: Moderately Isolated (03/10/2023) Social Connection and Isolation Panel [NHANES] Frequency of Communication with Friends and Family: Three times a week Frequency of Social Gatherings with Friends and Family: Twice a week Attends Scientologist Services: 1 to 4 times per year [...] Visit [facility] Spine and Neurosurgery [address] [place] [address] [address] [place] [address] Ebony Cid, COMMUNITY LEADER [facility] [address] [place] [address] 03/27/2024 11:00 AM CDT Office Visit [facility] [address] [facility] [address] [place] [phone] Jelena David, [address] [facility] [place] [address] 03/29/2024 3:30 PM CDT Therapy Visit [facility] [address] [place] [address] 160 [place] [phone] Ingris Thompson, PT [facility] [address] [place] [address] 04/05/2024 2:10 PM CDT Therapy Visit [facility] [address] [place] [address] 160 [place] [phone] Ingris Thompson, PT [facility] [address] [place] [address] 106 [place] [address] 04/19/2024 2:45 PM CDT Office Visit [facility] [address] [place] [phone] Audrey Waite PA-C [address] [facility] [address], [facility] 6[address] [place], [place] [address] 05/08/2024 1:30 PM CDT Office Visit [facility] [address] [place] [address] Lauren Claudio PA-C [address] [place], [place] [phone] Esha Grimm PA-C [address] [place] [address] 06/21/2024 2:00 PM LEAD MAINTENANCE TECHNICIAN Office Visit [facility] Neurology Clinics - [address], [address] [place] [phone] [place] [address] [place], [place] [phone] Johnny Penn MD [address] [place], [place] [address] Scheduled Referrals Name Type Priority Associated Diagnoses Orde r Schedule Spine Finish Production Manager Referral Referral Routine: Next available opening Neck pain Expected: 01/23/2024 (Approximate), Expires: 01/22/2025 Adult Neurology Finish Production Manager Referral Referral Routine: Next available opening Paresthesia of arm Expected: 01/23/2024 (Approximate), Expires: 01/22/2025 documented as of this encounter Visit Diagnoses Diagnosis Neck pain- Primary Cervicalgia Paresthesia of arm Disturbance of skin sensation Chiari I malformation (H) Compression of brain documented in this encounter Additional Health Concerns Assessment Noted Time PHQ-9 Depression Total Score: 4 06/20/20 23 8:40 AM LEAD MAINTENANCE TECHNICIAN documented as of this encounter Care Teams Bindery Helper Relationship Specialty Start Date End Date Esha Grimm PA-C [address] [place] [phone] PCP - General Family Medicine 05/04/23 Diana Desir, [facility] [address] [place], [place] [address] Pharmacist Pharmacist 04/17/21 Rain Galaviz PA-C [address] [place] [address] [address] [facility] [place] [place] [address] Physician Territory Manager Dermatology 04/28/21 Tavia Wyatt MD [address] [place] [address] [place] [address] Dermatology 07/14/21 Erica Farrell APRN LANGUAGES AND LITERATURE INSTRUCTOR [address] [facility] [address] [place] [address] Nurse Practitioner Cardiovascular Disease 09/09/21 Rich Barrett MD 516 [facility] [address] [place], [place] [address] Physician Ophthalmology 01/21/22 Neil Kent MD [address] [place], [place] 8[address] Dermatology 02/24/22 Diana Desir, [facility] [address] [place] [address] Assigned MTM Pharmacist 04/07/22 Livan Sharif MD [address], [facility] [address] [place] [address] Cardiovascular Disease 05/14/22 Catherine Cm MD [address] [facility] [address] [place], [place] [address] Cardiovascular Disease 07/21/22 Valery Veronica, PA-C 9[address] [place] [address] Physician Territory Manager Dermatology 07/21/22 Brea Quinn APRN LANGUAGES AND LITERATURE INSTRUCTOR 500 [place], [place] [address] Nurse Practitioner Dermatology 09/21/22 Brea Quinn APRN LANGUAGES AND LITERATURE INSTRUCTOR 64[address] [place] [address] Assigned Surgical Provider 10/09/22 [place] [address] [facility] 300 [place] [address] Assigned Musculoskeletal Provider 10/09/22 Alfonso Renteria MD 5775 [facility] 200 [place] [address] Assigned Neuroscience Provider 04/02/23 Radha Lomeli APRN LANGUAGES AND LITERATURE INSTRUCTOR 6[address] [facility] [address] [place] [address] Assigned Heart and Vascular Provider 05/28/23 Jelena David OD [address] [facility] [place] [address] MD Ophthalmology 06/15/23 Esha Grimm PA-C [address] [place] [address] Assigned PCP 07/16/23 Valery Veronica PA-C [address] [place] [address] Physician Territory Manager Dermatology 09/19/23 Rey Tay MD [address] [place] [address] Gastroenterology 09/20/23 Rocky Zepeda DO [address] [place] [address] Physician Gastroenterology 09/20/23 Philip Dumont MD [address] [place] [address] 315535 Physician Ophthalmology 09/22/23 Meredith Carrera PA-C [address] [place] [address] Assigned Gastroenterology Provider 11/01/23 Neil Kent MD [address] [address] Dermatology 11/02/23 [place] [address] [address] Neurological Surgery 12/26/23 documented as of this encounter
--- OUTSIDE RECORDS SUMMARY | 2024-03-23 15:55 | XMS_ITS | Encounter Summary ---
Author Organization [facility] Address [address] [place] [address] Care Team Providers Care Graduate Rn Name Role Phone Thang Diana [place] [facility] Unavailable Rain Galaviz PA-C Unavailable Tavia Wyatt MD Unavailable Unavailable Erica Farrell APRN AQUARIUM TANK ATTENDANT Unavailable Rich Barrett MD Unavailable Neil Kent MD Unavailable Diana Desir Stanislav [facility] Unavailable [phone] Livan Sharif MD Unavailable Catherine Cm MD Unavailable + Valery Veronica PA-C Unavailable [phone] Brea Quinn BIOLOGY ADJUNCT INSTRUCTOR AQUARIUM TANK ATTENDANT Unavailable Brea Quinn BIOLOGY ADJUNCT INSTRUCTOR AQUARIUM TANK ATTENDANT Unavailable Jose Francisco Johnson MD Unavailable Alfonso Renteria MD Unavailable + [phone] Esha Grimm PA-C Primary Care Provider [phone] Radha Lomeli BIOLOGY ADJUNCT INSTRUCTOR AQUARIUM TANK ATTENDANT Unavailable [phone] Jelena David OD Unavailable [phone] Esha GrimmC Unavailable Valery VeronicaC Unavailable [phone] Rey Tay MD Unavailable Rocky Zepeda DO Unavailable Philip Dumont MD Unavailable [phone] Meredith CarreraC Unavailable [phone] Neil Kent MD Unavailable Juan Pablo Emmanuel MD Unavailable [phone] Encounter Details Date Type Department Care Team [...] [facility] or buddhism services? 1 to 4 times [...] Answer Date Recorded PHQ-2 Score 0 10/25/2023 [facility] of Occupat ional [facility] - Occupational Stress Questionnaire Answer Date [...] exercise at this level? 30 min 03/10/2023 [place] Depression Scale Answer Date Recorded [place] Depression Score 5 01/14/2021 Last EPDS Self [...] [facility] Spine and Neurosurgery 1747 [facility] 100 [place] [address] Ebony Cid, BIOLOGY ADJUNCT INSTRUCTOR [facility] 500 [place], [place] [address] 03/27/2024 11:00 AM CDT Office Visit [facility] [address] [facility] [address] [place] [phone] Jelena David, [address] [facility] [place] [address] 03/29/2024 3:30 PM CDT Therapy Visit [facility] [address] [place] [address] 160 [place] [phone] Ingris Thompson, PT [facility] [address] [place] [address] 04/05/2024 2:10 PM CDT Therapy Visit [address] [place] [phone] Ingris Thompson, PT [facility] [address] [place] [address] 04/19/2024 2:45 PM CDT Office Visit [address] [phone] Audrey Waite PA-C [address], [facility] [address] [place], [place] [address] 05/08/2024 1:30 PM CDT Office Visit [facility] [address] [place] [address] Lauren Claudio PA-C [address] [place] [address] Esha Grimm PA-C [id number] [place] [address] 06/21/2024 2:00 PM RADIOLOGY SPECIAL PROCEDURE TECH Office Visit [facility] Neurology Clinics - [address], [address] [place] [address] [place] [address] [place] [address] Johnny Penn MD [address]45 [place] [address] documented as of this encounter Visit Diagnoses Not on filedocumented in this encounter Additional Health Concerns Assessment Noted Time PHQ-9 Depression Total Score: 4 06/20/20 23 8:40 AM RADIOLOGY SPECIAL PROCEDURE TECH documented as of this encounter Care Teams Graduate Rn Relationship Specialty Start Date End Date Esha Grimm PA-C [id number] [place] [address] PCP - General Family Medicine 05/04/23 Diana Desir, [facility] [address] [place] [address] Pharmacist Pharmacist 04/17/21 Rain Galaviz PA-C [address] [place] [address] [address] [place] [address] Physician Wire Weaver Cloth Dermatology 04/28/21 Tavia Wyatt MD [address] [place] [address] [address] [facility] [address] Dermatology 07/14/21 Erica Farrell APRN AQUARIUM TANK ATTENDANT [address] [place] [address] Nurse Practitioner Cardiovascular Disease 09/09/21 Rich Barrett MD [address] [place] [address] 411785 Physician Ophthalmology 01/21/22 Neil Kent MD [address] [place] [address] 038295 Dermatology 02/24/22 Diana Desir, [facility] [address] [place] [address] Assigned MTM Pharmacist 04/07/22 Livan Sharif MD [address] [place] 254065 Cardiovascular Disease 05/14/22 Catherine Cm MD [address] [facility] [address] [place] [address] Cardiovascular Disease 07/21/22 Valery Veronica PA-C 909 [place], [place] 1415[address] Physician Wire Weaver Cloth Dermatology 07/21/22 Brea Quinn APRN AQUARIUM TANK ATTENDANT 500 [place], [place] [address] Nurse Practitioner Dermatology 09/21/22 Brea Quinn APRN AQUARIUM TANK ATTENDANT 6401 [facility] [place] [address]292 Assigned Surgical Provider 10/09/22 [place] [address] [facility] 300 [place] [address] Assigned Musculoskeletal Provider 10/09/22 Alfonso Renteria MD 5775 [facility] 200 [place], [place] 5[address] Assigned Neuroscience Provider 04/02/23 Radha Lomeli APRN AQUARIUM TANK ATTENDANT 6405 [facility] [address] [place] [address] Assigned Heart and Vascular Provider 05/28/23 Jelena David OD [address] [facility] [place] [address] Ophthalmology 06/15/23 Esha Grimm PA-C [address] [place] [address] Assigned PCP 07/16/23 Valery Veronica PA-C [address] [place] [address] Physician Wire Weaver Cloth Dermatology 09/19/23 Rey Tay MD [address] [place] [address] MD Gastroenterology 09/20/23 Rocky Zepeda DO [address] [place] [address] Physician Gastroenterology 09/20/23 Philip Dumont MD [address] [place] [address] Physician Ophthalmology 09/22/23 Meredith Carrera PA-C [address] [place] [address] Assigned Gastroenterology Provider 11/01/23 Neil Kent MD [address] [address] Dermatology 11/02/23 [place] [address] [place] [address] Neurological Surgery 12/26/23 documented as of this encounter
--- OUTSIDE RECORDS SUMMARY | 2024-03-23 15:55 | XMS_ITS | Encounter Summary ---
Author Organization [facility] Address [address] [place] [address] Care Team Providers Care Photographic Process Screen Maker Name Role Phone Thang Diana [place] [facility] Unavailable Rain Galaviz PA-C Unavailable Tavia Wyatt MD Unavailable Unavailable Erica Farrell APRN FISH HATCHERY MAN Unavailable Rich Barrett MD Unavailable Neil Kent MD Unavailable Diana Desir Stanislav [facility] Unavailable [phone] Livan Sharif MD Unavailable Catherine Cm MD Unavailable + Valery Veronica PA-C Unavailable [phone] Brea Quinn RUBBER CUTTER AND SHAPE CARVER FISH HATCHERY MAN Unavailable [phone] Brea Quinn RUBBER CUTTER AND SHAPE CARVER FISH HATCHERY MAN Unavailable Jose Francisco Johnson MD Unavailable Alfonso Renteria MD Unavailable + [phone] Esha Grimm PA-C Primary Care Provider Radha Lomeli RUBBER CUTTER AND SHAPE CARVER FISH HATCHERY MAN Unavailable [phone] Jelena David OD Unavailable [phone] Jesus Grimmyllincoln Medina PA-C Unavailable [phone] Valery Veronica-C Unavailable Rey Tay MD Unavailable Duane Rocky DO Unavailable Philip Dumont MD Unavailable [phone] Meredith Carrera PA-C Unavailable Neil Kent MD Unavailable Juan Pablo Emmanuel MD Unavailable Reason for Visit * Reason Comments Shortness of Breath Encounter Details Date Type Department Care Team (Late st Contact Info) Description 01/11/2024 9:53 AM CDT - 01/11/2024 12:38 PM CDT Emergency [facility] Emergency Dept [address] [place] [phone] Jeffrey Whalen MD [facility] [address] [place] [address] Dyspnea, unspecified type Discharge Disposition: [...] do you attend [facility] or shinto services? 1 to 4 [...] Answer Date Recorded PHQ-2 Score 0 10/25/2023 [facility] Occupat ional Health - Occupational Stress [...] exercise at this level? 30 min 03/10/2023 [place] Depression Scale Answer Date Recorded [place] Depression Score 5 01/14/2021 Last EPDS Self [...] Care Everywhere. * SOB (Shortness of Breath) (Latvian) documented in this encounter Medications at Time [...] 09/21/2023 03/19/2024 documented as of this encounter ED Notes [...] sulfate Tessalon Lamictal Keppra Robaxin Naprosyn Zoloft Keerthinaflex Inderal Surgical History EP ablation SVT EGD [...] 0958 Normal sinus rhythm Rate 60 bpm. KS interval 146 ms. QRS duration 84 ms. [...] has eloped. Medical Decision Making / Diagnosis [facility] Diagnoses: None MIPS None MDM Patient presents [...] Prescriptions No medications on file Scribe Disclosure: IMaria Fernanda, am serving as a scribe at 9:57 AM on 01/11/2024 to document services personally performed by Jeffrey Whalen MD based on my observations and the provider's statements to me. Jeffrey Whalen MD 01/11/24 1330 documented in this encounter Plan of Treatment Upcoming Encounters Date Type Department Care Team (Late st Contact Info) Description 03/26/2024 11:20 AM CDT Office Visit [facility] Spine and Neurosurgery [address] [facility] [address] [place] [phone] Ebony Cid, ARLENE [facility] [address] [place] [address] 03/27/2024 11:00 AM CDT Office Visit [facility] [address] [facility] [address] [place] [phone] Jelena David, OD [address] [facility] [place] [address] 03/29/2024 3:30 PM CDT Therapy Visit [facility] [address] [facility] 160 [place] [address] Ingris Thompson, PT [facility] [address] [facility] [address], [place] [address] 04/05/2024 2:10 PM CDT Therapy Visit [facility] [address] [facility] [address] [place] [phone] Ingris Thompson, PT [facility] 6 [facility] [address], [place] [address] 04/19/2024 2:45 PM CDT Office Visit [address] [phone] Audrey Waite PA-C [address] [facility] [address], [facility] [address], [place] [address] 05/08/2024 1:30 PM CDT Office Visit [facility] [address] [place] [phone] Lauren Claudio PA-C [address] [place], [place] [phone] Esha Grimm PA-C [address] [place] [address] 06/21/2024 2:00 PM INTAKE CLINICIAN Office Visit [facility] Neurology Clinics - [address], [address] [place] [address] [place] [address] [place] [address] Johnny Penn MD [address] [place] [id number] documented as of this encounter Procedures Procedure [...] testing is available if warranted by ordering GEQ077, HCG Quantitative . Blood STRUCTURE OF RIGHT HAND / Unknown Venipuncture / Unknown 01/11/2024 11:10 AM CDT 01/11/2024 11:15 AM CDT Jeffrey Whalen MD LAB - BLOOD DONYA Almanza Organization Address City/State/ZIP Co de Phone Number LABORATORY [facility] Lab [address] Lab (1st floor, no room number) [place] [address] * (ABNORMAL) CBC with platelets and [...] Whalen MD LAB - BLOOD DONYA HERRERA [facility] Organization Address City/State/ZIP Co de Phone Number LABORATORY [facility] [address] [facility] Lab (1st floor, no room number) [place] [address] * Troponin T, High Sensitivity (01/11/2024 10:30 AM CDT) [facility] Troponin T, High Sensitivity <6 <=14 ng/L [...] MD LAB - BLOOD DONYA HERRERA LABORATORY [facility] [address] Lab (1st floor, no room number) [place] [address], [facility] * (ABNORMAL) Basic metabolic panel (01/11/2024 10:30 AM CDT) [facility] Sodium 137 135 - 145 mmol/L 01/11/2024 11:07 AM CDT LABORATORY Potassium 4.2 3.4 - 5.3 mmol/L 01/11/2024 11:07 AM CDT LABORATORY Chloride 103 98 - 107 mmol/L 01/11/2024 11:07 AM CDT LABORATORY Carbon Dioxide (CO2) 21(L) 22 - 29 mmol/L 01/11/2024 11:07 AM CDT LABORATORY Anion Gap 13 7 - 15 mmol/L 01/11/2024 11:07 AM CDT LABORATORY Urea Nitrogen 14.8 6.0 - 20.0 mg/dL 01/11/2024 11:07 AM CDT LABORATORY Creatinine 0.68 0.51 - 0.95 mg/dL 01/11/2024 11:07 AM CDT LABORATORY GFR Estimate >90 >60 mL/min/1.7 3m2 01/11/2024 11:07 AM CDT LABORATORY Comment:eGFR calculated usin g 2020 CKD-EPI equation. Calcium 8.7 8.6 - 10.0 mg/dL 01/11/2024 11:07 AM CDT LABORATORY Glucose 92 70 - 99 mg/dL 01/11/2024 11:07 AM CDT LABORATORY Blood STRUCTURE OF RIGHT UPPER LIMB / Unknown Venipuncture / Unknown 01/11/2024 10:30 AM CDT 01/11/2024 10:39 AM CDT Jeffrey Whalen MD LAB - BLOOD DONYA HERRERA LABORATORY [facility] [address] Lab (1st floor, no room number) [place] [phone] * D dimer quantitative (01/11/2024 10:30 AM CDT) D-Dimer Quantitative <0.27 0.00 - 0.50 ug/mL FEU 01/11/2024 10:59 AM CDT LABORATORY Blood STRUCTURE OF RIGHT [...] Whalen MD LAB - BLOOD DONYA HERRERA [facility] Organization Address City/State/ZIP Co de Phone Number [facility] Acute Care Lab [address] Lab (1st floor, no room number) [place] [phone] * EKG 12 lead (01/11/2024 9:55 AM CDT) Systolic Blood Pressure mmHg RADIOLOGY RESULTS Diastolic Blood Pressure mmHg RADIOLOGY RESULTS Ventricular Rate 60 BPM RAD IOLOGY RESULTS Atrial Rate 60 BPM RADIOLOG Y RESULTS KS Interval 146 ms RADIOLOG Y RESULTS QRS Duration 84 ms RADIOLO GY RESULTS QT 382 ms RADIOLOGY RESULTS QTc 382 ms RADIOLOGY RESULTS P Braddock 61 degrees RADIOLOGY RESULTS R AXIS 70 degrees RADIOLOGY RESULTS T Braddock 67 degrees RADIOLOGY RESULTS Interpretation ECG Sinus rhythm Normal ECG When compared with ECG of 26-DEC-2023 09:56, No significant change was found Unconfirmed report - interpretation of this ECG is computer generated - see medical record for final interpretation Confirmed by - EMERGENCY ROOM, PHYSICIAN ([id number]), avid editor Saleem Gomez ([id number]) on 01/11/2024 12:31:03 PM RADIOLOGY RESULTS 01/11/2024 9:55 AM CDT 01/11/2024 12:31 PM CDT Jeffrey Whalen MD ECG ORDERABLES RADIOLOGY RESULTS documented in this encounter Visit Diagnoses Diagnosis Dyspnea, unspecified type documented in this encounter Additional Health Concerns Assessment Noted Time PHQ-9 Depression Total Score: 4 06/20/20 23 8:40 AM INTAKE CLINICIAN documented as of this encounter Care Teams Photographic Process Screen Maker Relationship Specialty Start Date End Date Esha Grimm PA-C [address] [place] [address] PCP - General Family Medicine 05/04/23 Diana Desir, [facility] [address] [place] [address] Pharmacist Pharmacist 04/17/21 Rain Galaviz PA-C [address] [place] [address] [address] [place] [address] Physician Filenet Architect Dermatology 04/28/21 Tavia Wyatt MD [address] [place] [address] [address] [facility] [place] [address] Dermatology 07/14/21 Erica Farrell APRN FISH HATCHERY MAN [address] [facility] [address] [place] [address] Nurse Practitioner Cardiovascular Disease 09/09/21 Rich Barrett MD 516 [facility] [address], [place] [address] Physician Ophthalmology 01/21/22 Neil Kent MD [address] [place], [place] [address]485 Dermatology 02/24/22 Diana Desir, [facility] 30[address] [place] [address] Assigned MTM Pharmacist 04/07/22 Livan Sharif MD [address] [facility] [address] [facility] [address] [place], [place] [address] Cardiovascular Disease 05/14/22 Catherine Cm MD [address] [facility] [address] [place], [place] [address] Cardiovascular Disease 07/21/22 Valery Veronica, PAUcheC [address]09 [place], [place] 442875 Physician Filenet Architect Dermatology 07/21/22 Brea Quinn APRN FISH HATCHERY MAN 500 [place], [place] 942225 Nurse Practitioner Dermatology 09/21/22 Brea Quinn APRN FISH HATCHERY MAN [address] [place] [address] 837482 Assigned Surgical Provider 10/09/22 [place] [address] [facility] 300 [place] [address] Assigned Musculoskeletal Provider 10/09/22 Alfonso Renteria MD 5775 [facility] 200 [place] [address] Assigned Neuroscience Provider 04/02/23 Radha Lomeli APRN FISH HATCHERY MAN [address] [place], [place] [address] Assigned Heart and Vascular Provider 05/28/23 Frankie Jelena GarciaSONJA [address] [facility] [place] [address] MD Ophthalmology 06/15/23 Esha Grimm PA-C [address] [place] [phone] Assigned PCP 07/16/23 Valery Veronica PA-C [address] [place] [address]87885 Physician Filenet Architect Dermatology 09/19/23 Rey Tay MD [address] [place] [address] 622445 Gastroenterology 09/20/23 Rocky Zepeda DO [address] [place] [address]1625 Physician Gastroenterology 09/20/23 Philip Dumont MD [address] [place] [address] 269685 Physician Ophthalmology 09/22/23 Meredith Carrera PA-C [address] [place] [address] 078155 Assigned Gastroenterology Provider 11/01/23 Neil Kent MD [address] 729[address] Dermatology 11/02/23 [place] [address] [address] Neurological Surgery 12/26/23 documented as of this encounter
--- OUTSIDE RECORDS SUMMARY | 2024-03-23 15:55 | XMS_ITS | Encounter Summary ---
Author Organization [facility] Address [address] [place] [address] Care Team Providers Care Pony Worker Name Role Phone Thang Diana [place] [facility] Unavailable Rain Galaviz PA-C Unavailable Tavia Wyatt MD Unavailable Unavailable Erica Farrell APRN CHARGE ACCOUNT AUTHORIZER Unavailable Rich Barrett MD Unavailable Neil Kent MD Unavailable Diana Desir Stanislav [facility] Unavailable [phone] Livan Sharif MD Unavailable Catherine Cm MD Unavailable + Valery Veronica PA-C Unavailable [phone] Brea Quinn SALES AND MARKETING MANAGER CHARGE ACCOUNT AUTHORIZER Unavailable [phone] Brea Quinn SALES AND MARKETING MANAGER CHARGE ACCOUNT AUTHORIZER Unavailable [phone] Jose Francisco Johnson MD Unavailable Alfonso Renteria MD Unavailable + [phone] Esha Grimm PA-C Primary Care Provider Radha Lomeli SALES AND MARKETING MANAGER CHARGE ACCOUNT AUTHORIZER Unavailable [phone] Jelena David OD Unavailable Alfa Eshalincoln [facility] Unavailable [phone] Valery VeronicaC Unavailable [phone] Rey Tay MD Unavailable Rocky Zepeda DO Unavailable Philip Dumont MD Unavailable Meredith CarreraC Unavailable Neil Kent MD Unavailable Juan Pablo Emmanuel MD Unavailable Encounter Details Date Type Department Care Team (Late st Contact Info) Description 01/23/[address] [facility] Spine and Neurosurgery 1747 [facility] 100 [place] [address] Ebony Cid APRN [facility] 500 [place] [address] Social History Tobacco Use Types [...] Answer Date Recorded PHQ-2 Score 0 10/25/2023 [facility] - Occupational Stress Questionnaire Answer Date Recorded [...] exercise at this level? 30 min 03/10/2023 [place] Depression Scale Answer Date Recorded [place] Depression Score 5 01/14/2021 Last EPDS [...] symptoms and imaging results. Call back #: [phone] Preferred Pharmacy: documented in this encounter Plan of Treatment Upcoming Encounters Date Type Department Care Team (Late st Contact Info) Description 03/26/2024 11:20 AM CDT Office Visit [facility] Spine and Neurosurgery [address] [place] [address] 100 [place] [address] Ebony Cid, SALES AND MARKETING MANAGER [facility] 500 [place] [address] 03/27/2024 11:00 AM CDT Office Visit [facility] [address] [facility] [address] [place] [phone] Jelena David, [address] [place] [address] 03/29/2024 3:30 PM CDT Therapy Visit [facility] [address] [place] [address] 160 [place] [phone] Ingris Thompson, PT [facility] 516 [facility] 106 [place] [address] 04/05/2024 2:10 PM CDT Therapy Visit [address] 160 [place] [phone] Ingris Thompson, PT [facility] [address] [facility] 106 [place], [place] [address] 04/19/2024 2:45 PM CDT Office Visit [facility] 830 [place] [phone] Audrey Waite PA-C [address], [facility] 603 [place], [place] [address] 05/08/2024 1:30 PM CDT Office Visit [facility] [address] [place] [address] Lauren Claudio PA-C [address] [place], [place] [phone] Esha Grimm PA-C [address] [place] [address] 06/21/2024 2:00 PM VETERINARY INSPECTOR Office Visit [facility] Neurology Clinics - [address], [address] [place] [address] [place] [address] [place], [place] [address] Johnny Penn MD 6545 [place] [address] documented as of this encounter Visit Diagnoses Not on filedocumented in this encounter Additional Health Concerns Assessment Noted Time PHQ-9 Depression Total Score: 4 06/20/20 23 8:40 AM VETERINARY INSPECTOR documented as of this encounter Care Teams Pony Worker Relationship Specialty Start Date End Date Esha Grimm PA-C [address] [place] [phone] PCP - General Family Medicine 05/04/23 Diana Desir, [facility] [address] [place] [address] Pharmacist Pharmacist 04/17/21 Rain Galaviz PA-C [address] [place] [address] [address] [place] [address] Physician Morning Babysitter Dermatology 04/28/21 Tavia Wyatt MD [address] [place] [address] [address] [facility] [place] [address] Dermatology 07/14/21 Erica Farrell, ARLENE CHARGE ACCOUNT AUTHORIZER [address] [place] [address] Nurse Practitioner Cardiovascular Disease 09/09/21 Rich Barrett MD 516 [facility] 9[address] [place], [place] [address] Physician Ophthalmology 01/21/22 Neil Kent MD 500 [place], [place] [address] Dermatology 02/24/22 Diana Desir, [facility] [address] [place] [address] Assigned MTM Pharmacist 04/07/22 Livan Sharif MD [address] [facility] [address] [place] [address] Cardiovascular Disease 05/14/22 Catherine Cm MD 6405 [facility] [address] [place] [address] Cardiovascular Disease 07/21/22 Valery Veronica PA-C [address] [place] [address] Physician Morning Babysitter Dermatology 07/21/22 Brea Quinn APRN CHARGE ACCOUNT AUTHORIZER 500 [place] [address] Nurse Practitioner Dermatology 09/21/22 Brea Quinn APRN CHARGE ACCOUNT AUTHORIZER [address] [place] [address] Assigned Surgical Provider 10/09/22 [place] [address] [place] [address] [address] Assigned Musculoskeletal Provider 10/09/22 Alfonso Renteria MD 5775 [facility] 200 [place], [place] 527926 Assigned Neuroscience Provider 04/02/23 Radha Lomeli APRN CHARGE ACCOUNT AUTHORIZER [address] [place] [address] Assigned Heart and Vascular Provider 05/28/23 Jelena David OD [address] [place] [address] MD Ophthalmology 06/15/23 Esha Grimm PA-C [address] [place] [address] Assigned PCP 07/16/23 Valery Veronica PA-C [address] [place] [address] Physician Morning Babysitter Dermatology 09/19/23 Rey Tay MD [address] [place] [address] 726735 MD Gastroenterology 09/20/23 Rocky Zepeda DO [address] [place] [address] Physician Gastroenterology 09/20/23 Philip Dumont MD [address] [place] [address] 846245 Physician Ophthalmology 09/22/23 Meredith Carrera PA-C [address] [place] [address] 893505 Assigned Gastroenterology Provider 11/01/23 Neil Kent MD [address] 567040 Dermatology 11/02/23 [place] [address] [place] [address] Neurological Surgery 12/26/23 documented as of this encounter
--- OUTSIDE RECORDS SUMMARY | 2024-03-23 15:55 | XMS_ITS | Encounter Summary ---
Author Organization [facility] Address [address] [place] [address] Care Team Providers Care Cut And Cover Line Worker Name Role Phone Thang Diana [place] [facility] Unavailable [phone] Rain Galaviz PA-C Unavailable Tavia Waytt MD Unavailable Unavailable Erica Farrell APRN FELT WASHING MACHINE TENDER Unavailable Rich Barrett MD Unavailable Neil Kent MD Unavailable Diana Desir Stanislav [facility] Unavailable [phone] Livan Sharif MD Unavailable Catherine Cm MD Unavailable + Valery Veronica PA-C Unavailable [phone] Brea Quinn SECTION CREWS ACTIVITIES CLERK FELT WASHING MACHINE TENDER Unavailable [phone] Brea Quinn SECTION CREWS ACTIVITIES CLERK FELT WASHING MACHINE TENDER Unavailable Jose Francisco Johnson MD Unavailable Alfonso Renteria MD Unavailable + [phone] Esha Grimm PA-C Primary Care Provider Radha Lomeli SECTION CREWS ACTIVITIES CLERK FELT WASHING MACHINE TENDER Unavailable [phone] Jelena David OD Unavailable Esha Grimm PA-C Unavailable [phone] Valery eVronica PA-C Unavailable [phone] Rey Tay MD Unavailable Rocky Zepeda DO Unavailable Philip Dumont MD Unavailable [phone] Meredith Carrera PA-C Unavailable [phone] Neil Kent MD Unavailable Juan Pablo Emmanuel MD Unavailable [phone] Audrey Waite PA-C Unavailable [phone] Encounter Details Date Type Department Care Team (Late st Contact Info) Description 02/01/2024 MyC Medical Advice [facility] [address], [address] [place] [address] Macy Pinedo, RN Social History Tobacco [...] Answer Date Recorded PHQ-2 Score 0 10/25/2023 [facility] - Occupational Stress Questionnaire Answer [...] exercise at this level? 30 min 03/10/2023 Jackson Depression Scale Answer Date Recorded [...] Description 03/26/2024 11:20 AM CDT Office Visit [facility] [address] [place] [address] Ebony Cid, SECTION CREWS ACTIVITIES CLERK [facility] 500 [place], [place] 199675 03/27/2024 11:00 AM CDT Office Visit [facility] [place] [address] [facility] [address] [place] [phone] Jelena David, 3305 [facility] [place] [address] 03/29/2024 3:30 PM CDT Therapy Visit [facility] [place] [address] [place] [address] [address] [place] [phone] Ingris Thompson, PT [facility] 516 [facility] 106 [place] [address] 04/05/2024 2:10 PM CDT Therapy Visit [facility] [place] [address] [facility] [address] [place] [phone] Ingris Thompson, PT [facility] 516 [facility] 106 [place], [place] [address]115 04/19/2024 2:45 PM CDT Office Visit [facility] 830 [place] [address] Audrey Waite PA-C [address] [facility] [address], [facility] 603 [place], [place] 336315 05/08/2024 1:30 PM CDT Office Visit [facility] [address] [place] [address] Lauren Claudio PA-C [address] [place], [place] [phone] Esha Grimm PA-C [address] [place] [phone] 06/21/2024 2:00 PM HELP DESK COORDINATOR Office Visit [facility]ics - [address], [address] [place] [phone] [place] [address] [place] [address] Johnny Penn MD 6530 [place] [address] documented as of this encounter Visit Diagnoses Not on filedocumented in this encounter Additional Health Concerns Assessment Noted Time PHQ-9 Depression Total Score: 4 06/20/20 23 8:40 AM HELP DESK COORDINATOR documented as of this encounter Care Teams Cut And Cover Line Worker Relationship Specialty Start Date End Date Esha Grimm PA-C [address] [place] [address] PCP - General Family Medicine 05/04/23 Diana Desir, [facility] [address] [place] [address] Pharmacist Pharmacist 04/17/21 Rain Galaviz PA-C [address] [place] [address] [address] [place] [address] Physician Railroad Car Painter Dermatology 04/28/21 Tavia Wyatt MD [address] [place] [address] [address] [place] [address] Dermatology 07/14/21 Erica Farrell APRN FELT WASHING MACHINE TENDER [address] [place] [place] [place] [address] Nurse Practitioner Cardiovascular Disease 09/09/21 Rich Barrett MD [address] 633[address] Physician Ophthalmology 01/21/22 Neil Kent MD 500 [place], [place] 423975 Dermatology 02/24/22 Diana Desir, [facility] [address] [place] [address] Assigned MTM Pharmacist 04/07/22 Livan Sharif MD [address] [facility] [address] [place], [place] 2615[address] Cardiovascular Disease 05/14/22 Catherine Cm MD [address] [facility] [address] [place] 522985 Cardiovascular Disease 07/21/22 Valery Veronica, PAUcheC [address] [place] [address] 982135 Physician Railroad Car Painter Dermatology 07/21/22 Brea Quinn APRN FELT WASHING MACHINE TENDER [address] [place] [address] 973845 Nurse Practitioner Dermatology 09/21/22 Brea Quinn APRN FELT WASHING MACHINE TENDER 6401 [facility] [place] 950472 Assigned Surgical Provider 10/09/22 [place] [address] [address] [facility] 300 [place] [address] Assigned Musculoskeletal Provider 10/09/22 Alfonso Renteria MD 5775 [facility] 200 [place], [place] 227876 Assigned Neuroscience Provider 04/02/23 Radha Lomeli APRN FELT WASHING MACHINE TENDER [address] [place] 541825 Assigned Heart and Vascular Provider 05/28/23 Jelena David OD [address] [place] [address] MD Ophthalmology 06/15/23 Esha Grimm PA-C [address] [place] [phone] Assigned PCP 07/16/23 Valery Veronica PA-C [address] [place] [address] 266665 Physician Railroad Car Painter Dermatology 09/19/23 Rey Tay MD [address] [place] [address] 039395 MD Gastroenterology 09/20/23 Rocky Zepeda DO [address] [place] [address] 952255 Physician Gastroenterology 09/20/23 Philip Dumont MD [address] [place] [address] Physician Ophthalmology 09/22/23 Meredith Carrera PA-C [address] [place] [address] Assigned Gastroenterology Provider 11/01/23 Neil Kent MD [address] [address] Dermatology 11/02/23 [place] [address] [place] [address] Neurological Surgery 12/26/23 Audrey Waite PA-C 500 [place] [address] Physician Railroad Car Painter Dermatology 02/28/24 documented as of this encounter
--- OUTSIDE RECORDS SUMMARY | 2024-03-23 15:55 | XMS_ITS | Encounter Summary ---
Author Organization [facility] Address [address] [place] [address] Care Team Providers Care Package Worker Name Role Phone Thang Diana [place] [facility] Unavailable [phone] Rain Galaviz PA-C Unavailable Tavia Wyatt MD Unavailable Unavailable Erica Farrell APRN LACQUER COATER Unavailable Rich Barrett MD Unavailable Neil Kent MD Unavailable Diana Desir Stanislav [facility] Unavailable [phone] Livan Sharif MD Unavailable Catherine Cm MD Unavailable + Valery Veronica PA-C Unavailable [phone] Brea Quinn SET UP TECHNICIAN LACQUER COATER Unavailable Brea Quinn SET UP TECHNICIAN LACQUER COATER Unavailable Jose Francisco Johnson MD Unavailable Alfonso Renteria MD Unavailable + [phone] Esha Grimm PA-C Primary Care Provider Radha Lomeli SET UP TECHNICIAN LACQUER COATER Unavailable [phone] Jelena David OD Unavailable Esha GrimmC Unavailable [phone] Valery VeronicaC Unavailable [phone] Rey Tay MD Unavailable Rocky Zepeda DO Unavailable Philip Dumont MD Unavailable [phone] Meredith CarreraC Unavailable [phone] Niel Kent MD Unavailable Juan Pablo Emmanuel MD Unavailable [phone] Encounter Details Date Type Department Care Team [...] How often do you attend [facility] or spiritism services? 1 to 4 [...] Answer Date Recorded PHQ-2 Score 0 10/25/2023 [facility] [...] exercise at this level? 30 min 03/10/2023 [place] Depression Scale Answer Date Recorded [place] Depression Score 5 01/14/2021 Last EPDS Self [...] [facility] Spine and Neurosurgery 1747 [facility] 100 [place] [address] Ebony Cid, SET UP TECHNICIAN [facility] 500 [place], [place] 486855 03/27/2024 11:00 AM CDT Office Visit [facility] 3305 [facility] [address] [place] [phone] Jelena David, 3305 [facility] [place] [address] 03/29/2024 3:30 PM CDT Therapy Visit [facility] [address] [place] [address] 160 [place] [phone] Ingris Thompson, PT [facility] [address] [place] [address] 068955 04/05/2024 2:10 PM CDT Therapy Visit [address] [place] [phone] Ingris Thompson, PT [facility] [address] [place] [address] 04/19/2024 2:45 PM CDT Office Visit [address] [phone] Audrey Waite PA-C [address], [facility] 603 [place], [place] 642845 05/08/2024 1:30 PM CDT Office Visit [facility] [address] [place] [address] Lauren Claudio PA-C [address] [place] [address] Esha Grimm PA-C [id number] [place] [address] 06/21/2024 2:00 PM TICKET SPECULATOR Office Visit [facility] Neurology Clinics - [address], [address] [place] [address] [place] [address] [place] [address] Johnny Penn MD 6545 [place] [address] documented as of this encounter Visit Diagnoses Not on filedocumented in this encounter Additional Health Concerns Assessment Noted Time PHQ-9 Depression Total Score: 4 06/20/20 23 8:40 AM TICKET SPECULATOR documented as of this encounter Care Teams Package Worker Relationship Specialty Start Date End Date Esha Grimm PA-C [id number] [place] [address] PCP - General Family Medicine 05/04/23 Diana Desir, [facility] 3033 [place] [address] Pharmacist Pharmacist 04/17/21 Rain Galaviz PA-C [address] [place] [address] DR [address] [place] [address] Physician Piece Meat Trimmer Dermatology 04/28/21 Tavia Wyatt MD [address] [place] [address] DR [facility] [facility] [address] Dermatology 07/14/21 Erica Farrell APRN LACQUER COATER [address] [place] 244[address] Nurse Practitioner Cardiovascular Disease 09/09/21 Rich Barrett MD [address] [place] [address] 109355 Physician Ophthalmology 01/21/22 Neil Kent MD [address] [place] [address] 539965 Dermatology 02/24/22 Diana Desir, [facility] [address] [place] [address] Assigned MTM Pharmacist 04/07/22 Livan Sharif MD [address] [place] 519555 Cardiovascular Disease 05/14/22 Catherine Cm MD [address] [facility] [address] [place] [address] Cardiovascular Disease 07/21/22 Valery Veronica PA-C 909 [place], [place] 862445 Physician Piece Meat Trimmer Dermatology 07/21/22 Brea Quinn APRN LACQUER COATER 500 [place], [place] 757585 Nurse Practitioner Dermatology 09/21/22 Brea Quinn APRN LACQUER COATER 6401 [facility] [place] 316682 Assigned Surgical Provider 10/09/22 [place] [address] [address] [facility] 300 [place] [address] Assigned Musculoskeletal Provider 10/09/22 Alfonso Renteria MD 5775 [facility] 200 [place], [place] 667126 Assigned Neuroscience Provider 04/02/23 Radha Lomeli APRN LACQUER COATER 6405 [facility] [address] [place] [address] Assigned Heart and Vascular Provider 05/28/23 Jelena David OD [address] [place] [address] Ophthalmology 06/15/23 Esha Grimm PA-C [address] [place] [address]-914283 Assigned PCP 07/16/23 Valery Veronica PA-C [address] [place] [address] Physician Piece Meat Trimmer Dermatology 09/19/23 Rey Tay MD [address] [place] [address] MD Gastroenterology 09/20/23 Rocky Zepeda DO [address] [place] [address] Physician Gastroenterology 09/20/23 Philip Dumont MD [address] [place] [address] Physician Ophthalmology 09/22/23 Meredith Carrera PA-C [address] [place] [address] Assigned Gastroenterology Provider 11/01/23 Neil Kent MD [address] [address] Dermatology 11/02/23 [place] [address] [place] [address] Neurological Surgery 12/26/23 documented as of this encounter
--- OUTSIDE RECORDS SUMMARY | 2024-03-23 15:55 | XMS_ITS | Encounter Summary ---
Author Organization [facility] Address [address] [place] [address] Care Team Providers Care Mesmerist Name Role Phone Thang Diana [place] [facility] Unavailable Rain Galaviz PA-C Unavailable [phone] Tavia Wyatt MD Unavailable Unavailable Erica Farrell APRN STRATEGIC PLANNING DIRECTOR Unavailable Rich Barrett MD Unavailable Neil Kent MD Unavailable Diana Desir Stanislav [facility] Unavailable [phone] Livan Sharif MD Unavailable Catherine Cm MD Unavailable + Valery Veronica PA-C Unavailable [phone] Brea Quinn MULTIMEDIA PROJECT MANAGER STRATEGIC PLANNING DIRECTOR Unavailable Brea Quinn MULTIMEDIA PROJECT MANAGER STRATEGIC PLANNING DIRECTOR Unavailable Jose Francisco Johnson MD Unavailable Alfonso Renteria MD Unavailable + [phone] Esha Grimm PA-C Primary Care Provider [phone] Radha Lomeli MULTIMEDIA PROJECT MANAGER STRATEGIC PLANNING DIRECTOR Unavailable [phone] Jelena David OD Unavailable Wicho Grimmlincoln Medina PA-C Unavailable [phone] Valery Veronica PA-C Unavailable Rey Tay [...] I (H) Neck pain Ebony Cid APRN STRATEGIC PLANNING DIRECTOR 500 [place] [address] Referral ID Status Reason Start Date Expiration Date V isits Requested Visits Authorized [id number] Pending Review 01/05/2024 01/04/2025 1 1 Encounter Details Date Type Department Care Team (Latest Contact Info) Description 01/26/2024 12:50 PM CDT Therapy Visit [address] [phone] Ebony Cid APRN [facility] 500 [place] [address] Rustam Medina, PT [facility] [id number] [place] [address] Chiari malformation type I (H); Neck pain [...] How often do you attend chur or advent services? 1 to 4 times [...] Answer Date Recorded PHQ-2 Score 0 10/25/2023 [facility] - Occupational Stress Questionnaire Answer [...] exercise at this level? 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 Patient/Family/caregiver agrees with Plan of Care. Evaluation Time: PT Travon Munguia Minutes (94119): 20 Signing Clinician: Rustam Medina, PT [facility] OUTPATIENT PHYSICAL THERAPY PLAN OF TREATMENT FOR OUTPATIENT REHABILITATION Patient's Last Name, First Name, Kim hWite Date of : 2000 Provider's Name [facility] Onset Date: 01/05/24 (MD order) Start [...] [facility] Spine and Neurosurgery [address] [place] [address] [address] [place] [phone] Ebony Cid, [facility] 500 [place] [address] 03/27/2024 11:00 AM CDT Office Visit [facility] [place] 3305 [facility] [address] [place] [phone] Jelena David, SONJA 3305 [facility] [place] [address] 03/29/2024 3:30 PM CDT Therapy Visit [facility] Services [place] [address] [place] [address] [address] [place] [phone] Ingris Thompson, PT [facility] 516 [facility] 106 [place], [place] 952025 04/05/2024 2:10 PM CDT Therapy Visit [facility] [place] [address] [facility] [address] [place] [phone] Ingris Thompson, PT [facility] 516 [facility] 106 [place], [place] 6[address]805 04/19/2024 2:45 PM CDT Office Visit [facility] [address] [place] [address] Audrey Waite PA-C 420 [facility] [address], [facility] 603 [place], [place] 7[address]995 05/08/2024 1:30 PM CDT Office Visit [facility] [address] [place] [phone] Lauren Claudio PA-C [address] [place], [place] [phone] Esha Grimm PA-C [address] [place] [address] 06/21/2024 2:00 PM REPAIRER CYLINDER HEADS Office Visit [facility] Neurology Clinics - [place] 6545 [facility], [address] [place] [address] [place] [address] [place] [address] Johnny Penn MD 4282 [place] [address] documented as of this encounter Visit Diagnoses Diagnosis Chiari malformation type I (H) Compression of brain Neck pain Cervicalgia documented in this encounter Additional Health Concerns Assessment Noted Time PHQ-9 Depression Total Score: 4 06/20/20 23 8:40 AM REPAIRER CYLINDER HEADS documented as of this encounter Care Teams Mesmerist Relationship Specialty Start Date End Date Esha Grimm PA-C [address] [place] [address]799483 PCP - General Family Medicine 05/04/23 Diana Desir, [facility] [address] [place] [address] Pharmacist Pharmacist 04/17/21 Rain Galaviz PA-C [address] [place] [address] [address] [facility] [place] [address] Physician Parking Analyst Dermatology 04/28/21 Tavia Wyatt MD [address] [place] [address] [place] [address] Dermatology 07/14/21 Erica Farrell APRN STRATEGIC PLANNING DIRECTOR 6405 [facility] [address] [place] [address] Nurse Practitioner Cardiovascular Disease 09/09/21 Rich Barrett MD 516 [facility] 9A [place], [place] 065015 Physician Ophthalmology 01/21/22 Neil Kent MD 500 [place] [address] Dermatology 02/24/22 Diana Desir, [facility] 3033 [place] [address] Assigned MTM Pharmacist 04/07/22 Livan Sharif MD [address] [facility] [address] [place] [address] Cardiovascular Disease 05/14/22 Catherine Cm MD [address] [facility] [address] [place], [place] 963805 Cardiovascular Disease 07/21/22 Valery Veronica, PA-C 909 [place] [address] Physician Parking Analyst Dermatology 07/21/22 Brea Quinn APRN STRATEGIC PLANNING DIRECTOR 500 [place] [address] Nurse Practitioner Dermatology 09/21/22 Brea Quinn APRN STRATEGIC PLANNING DIRECTOR 6401 [place] [address] Assigned Surgical Provider 10/09/22 [place] [address] [facility] 300 [place] [address] Assigned Musculoskeletal Provider 10/09/22 Alfonso Renteria MD 5775 [facility] 200 [place] [address] Assigned Neuroscience Provider 04/02/23 Radha Lomeli APRN STRATEGIC PLANNING DIRECTOR 6405 [facility] [address] [place] [address] Assigned Heart and Vascular Provider 05/28/23 Jelena David OD [address] [facility] [place] [address] MD Ophthalmology 06/15/23 Esha Grimm PA-C [address] [place] [address]020683 Assigned PCP 07/16/23 Valery Veronica PA-C [address] [place] [address] 528495 Physician Parking Analyst Dermatology 09/19/23 Rey Tay MD [address] [place] [address] MD Gastroenterology 09/20/23 Rocky Zepeda DO [address] [place] [address] 388645 Physician Gastroenterology 09/20/23 Philip Dumont MD [address] [place] [address] 137045 Physician Ophthalmology 09/22/23 Meredith Carrera PA-C [address] [place] [address] 796595 Assigned Gastroenterology Provider 11/01/23 Neil Kent MD [address] 574640 Dermatology 11/02/23 [place] [address] [facility] [address] [address] [address] Neurological Surgery 12/26/23 documented as of this encounter
--- OUTSIDE RECORDS SUMMARY | 2024-03-23 15:56 | XMS_ITS | Encounter Summary ---
Author Organization [facility] Address [address] [place] [address] Care Team Providers Care Car Customizer Name Role Phone Thang Diana [place] [facility] Unavailable Rain Galaviz PA-C Unavailable Tavia Wyatt MD Unavailable Unavailable Erica Farrell APRN TRIMMING CUTTER Unavailable Rich Barrett MD Unavailable Neil Kent MD Unavailable Diana Desir Stanislav [facility] Unavailable [phone] Livan Sharif MD Unavailable Catherine Cm MD Unavailable + Valery Veronica PA-C Unavailable [phone] Brea Quinn DAIRY FEED MIXING OPERATOR TRIMMING CUTTER Unavailable [phone] Brea Quinn DAIRY FEED MIXING OPERATOR TRIMMING CUTTER Unavailable Jose Francisco Johnson MD Unavailable Alfonso Renteria MD Unavailable + [phone] Esha Grimm PA-C Primary Care Provider Radha Lomeli DAIRY FEED MIXING OPERATOR TRIMMING CUTTER Unavailable [phone] Jelena David OD Unavailable Esha GrimmC Unavailable [phone] Valery VeronicaC Unavailable [phone] Rey Tay MD Unavailable Rocky Zepeda DO Unavailable Philip Dumont MD Unavailable [phone] Meredith CarreraC Unavailable [phone] Neil Kent MD Unavailable Juan Pablo Emmanuel MD Unavailable [phone] Encounter Details Date Type Department Care Team [...] week 03/10/2023 How often do you attend [facility]? 1 to 4 [...] Answer Date Recorded PHQ-2 Score 0 10/25/2023 [facility] ional [facility] [...] exercise at this level? 30 min 03/10/2023 Whitlash Depression Scale Answer Date Recorded Whitlash Depression Score 5 01/14/2021 Last EPDS Self [...] [facility] Spine and Neurosurgery 1747 [facility] 100 [place] [address] Ebony Cid, DAIRY FEED MIXING OPERATOR [facility] 500 [place], [place] 293145 03/27/2024 11:00 AM CDT Office Visit [facility] [address] [facility] [address] [place] [phone] Jelena David, [address] [facility] [place] [address] 03/29/2024 3:30 PM CDT Therapy Visit [facility] [address] [place] [address] 160 [place] [phone] Ingris Thompson, PT [facility] [address] [place] [address] 476475 04/05/2024 2:10 PM CDT Therapy Visit [address] [place] [phone] Ingris Thompson, PT [facility] [address] [place] [address] 04/19/2024 2:45 PM CDT Office Visit [address] [phone] Audrey Waite PA-C [address], [facility] 603 [place], [place] 810865 05/08/2024 1:30 PM CDT Office Visit [facility] [address] [place] [address] Lauren Claudio PA-C [address] [place] [address] Esha Grimm PA-C [id number] [place] [address] 06/21/2024 2:00 PM SHEET LAYER Office Visit [facility] Neurology Clinics - [address], [address] [place] [address] [place] [address] [place] [address] Johnny Penn MD 6545 [place] [address] documented as of this encounter Visit Diagnoses Not on filedocumented in this encounter Additional Health Concerns Assessment Noted Time PHQ-9 Depression Total Score: 4 06/20/20 23 8:40 AM SHEET LAYER documented as of this encounter Care Teams Car Customizer Relationship Specialty Start Date End Date Esha Grimm PA-C [id number] [place] [address] PCP - General Family Medicine 05/04/23 Diana Desir, [facility] [address] [place] [address] Pharmacist Pharmacist 04/17/21 Rain Galaviz PA-C [address] [place] [address] DR RA[address] [place] [address] Physician Racebook Writer Dermatology 04/28/21 Tavia Wyatt MD [address] [place] [address] DR ARRIOL[address] [facility] [address] Dermatology 07/14/21 Erica Farrell APRN TRIMMING CUTTER [address] [place] 667485 Nurse Practitioner Cardiovascular Disease 09/09/21 Rich Barrett MD [address] [place] [address] 740205 Physician Ophthalmology 01/21/22 Neil Kent MD [address] [place] [address] 643395 Dermatology 02/24/22 Diana Desir, [facility] [address] [place] [address] Assigned MTM Pharmacist 04/07/22 Livan Sharif MD [address] [place] 356415 Cardiovascular Disease 05/14/22 Catherine Cm MD [address] [facility] [address] [place] [address] Cardiovascular Disease 07/21/22 Valery Veronica PA-C 909 [place], [place] 686905 Physician Racebook Writer Dermatology 07/21/22 Brea Quinn APRN TRIMMING CUTTER 500 [place], [place] 385925 Nurse Practitioner Dermatology 09/21/22 Brea Quinn APRN TRIMMING CUTTER 6401 [facility] [place] 372492 Assigned Surgical Provider 10/09/22 [place] [address] [facility] 300 [place] [address] Assigned Musculoskeletal Provider 10/09/22 Alfonso Renteria MD 5775 [facility] 200 [place], [place] 009376 Assigned Neuroscience Provider 04/02/23 Radha Lomeli APRN TRIMMING CUTTER 6405 [facility] [address] [place] [address] Assigned Heart and Vascular Provider 05/28/23 Jelena David OD [address] [facility] [place] [address] Ophthalmology 06/15/23 Esha Grimm PA-C [address] [place] [address]768[address] Assigned PCP 07/16/23 Valery Veronica PA-C [address] [place] [address] Physician Racebook Writer Dermatology 09/19/23 Rey Tay MD [address] [place] [address] MD Gastroenterology 09/20/23 Rocky Zepeda DO [address] [place] [address] Physician Gastroenterology 09/20/23 Philip Dumont MD [address] [place] [address] Physician Ophthalmology 09/22/23 Meredith Carrera PA-C [address] [place] [address] Assigned Gastroenterology Provider 11/01/23 Neil Kent MD [address] [address] Dermatology 11/02/23 [place] [address] [place] [address] Neurological Surgery 12/26/23 documented as of this encounter
--- OUTSIDE RECORDS SUMMARY | 2024-03-23 15:56 | XMS_ITS | Encounter Summary ---
Author Organization [facility] Address [address] [place] [address] Care Team Providers Care Decorative Greens Cutter Name Role Phone Thang Diana Mayers [facility] Unavailable [phone] Rain Galaviz PA-C Unavailable [phone] Tavia Wyatt MD Unavailable Unavailable Erica Farrell APRN LIVESTOCK SHOWMAN Unavailable Rich Barrett MD Unavailable Neil Kent MD Unavailable Diana Desir Stanislav [facility] Unavailable [phone] Livan Sharif MD Unavailable Catherine Cm MD Unavailable + Valery Veronica PA-C Unavailable [phone] Brea Quinn [facility] LIVESTOCK SHOWMAN Unavailable [phone] Brea Quinn [facility] LIVESTOCK SHOWMAN Unavailable Jose Francisco Johnson MD Unavailable Alfonso Renteria MD Unavailable + [phone] Esha Grimm PA-C Primary Care Provider Radha Lomeli [facility] LIVESTOCK SHOWMAN Unavailable [phone] Jelena David OD Unavailable Esha Grimm Adam PA-C Unavailable [phone] Valery Veronica PA-C Unavailable Rey Tay MD Unavailable ZepedaRocky Unavailable Philip Dumont MD Unavailable Meredith Carrera PA-C Unavailable Neil Kent MD Unavailable Juan Pablo Emmanuel MD Unavailable [phone] Reason for Referral * Diagnostic Imaging MRI (Routine) - Closed Specialty Diagnoses / Procedures [facility] Referred To Contact Radiology. Diagnoses Abnormal finding on MRI of brain Chiari malformation type I (H) Procedures MR Brain w/o & w Contrast Ebony Cid APRN LIVESTOCK SHOWMAN 500 [place] [address] Referral ID Status Reason Start Date Expiration Date Visits Re quested Visits Authorized [id number] Closed 01/05/2024 01/04/2025 1 1 * Diagnostic Imaging MRI (Routine) - Closed Specialty Diagnoses / Procedures [facility] Referred To Contact Radiology. Diagnoses Chiari malformation type I (H) Numbness and tingling of upper extremity Procedures MR Cervical Spine w/o & w Contrast Ebony Cid APRN LIVESTOCK SHOWMAN 500 [place] [address] Referral ID Status Reason Start Date Expiration Date Visits Re quested Visits Authorized [id number] Closed 01/05/2024 01/04/2025 1 1 Reason for Visit * Diagnostic Imaging MRI (Routine) - Closed Specialty Diagnoses / Procedures Referred By Qian mayers Referred To Contact Radiology. Diagnoses Abnormal finding on MRI of brain Chiari malformation type I (H) Procedures MR Brain w/o & w Contrast Ebony Cid APRN LIVESTOCK SHOWMAN 500 [place] [address] Referral ID Status Reason Start Date Expiration Date Visits Re quested Visits Authorized [id number] Closed 01/05/2024 01/04/2025 1 1 Encounter Details Date Type Department Care Team (Latest Contact Info) Description 01/06/2024 10:53 AM CDT - 01/06/2024 11:59 PM CDT Hospital Encounter [address] [address] Ebony Cid APRN LIVESTOCK SHOWMAN 500 [place] [address] Chiari malformation type I (H); Numbness and [...] 10/25/2023 [facility] - Occupational [...] exercise at this level? 30 min 03/10/2023 [place] Depression Scale Answer Date Recorded [place] Depression Score 5 01/14/2021 Last EPDS Self [...] 09/21/2023 03/19/2024 documented as of this encounter Plan of Treatment Upcoming Encounters Date Type Department Care Team (Late st Contact Info) Description 03/26/2024 11:20 AM CDT Office Visit [facility] Spine and Neurosurgery [address] [facility] [address] [place] [phone] Ebony Cid, [facility] 500 [place] [address] 03/27/2024 11:00 AM CDT Office Visit [facility] [place] [address] [facility] [address] [place] [phone] Jelena David, [place] [address] [facility] [place] [address] 03/29/2024 3:30 PM CDT Therapy Visit [facility] [place] [address] [place] [address] [address] [place] [phone] Ingris Thompson, PT [facility] 516 [facility] 106 [place] [address] 04/05/2024 2:10 PM CDT Therapy Visit [facility] [place] [address] [facility] [address] [place] [phone] Ingris Thompson, PT [facility] [address] [facility] 106 [place], [place] [address]365 04/19/2024 2:45 PM CDT Office Visit [facility] 830 [place] [phone] Audrey Waite PA-C [address] [facility] [address], [facility] 603 [place], [place] 0[address]65 05/08/2024 1:30 PM CDT Office Visit [facility] [address] [place] [phone] Lauren Claudio PA-C [address] [place], [place] [phone] Esha Grimm PA-C [address] [place] [phone] 06/21/2024 2:00 PM IV TECHNICIAN Office Visit [facility] Neurology [facility]ics - [place] [address] [place] [address], [address] [place] [address] [place] [address] [place] [id number] Johnny Penn MD 6584 [place] [address] documented as of this encounter Procedures Procedure [...] MR BRAIN W/O and W CONTRAST LOCATION: [facility] DATE: 01/06/2024 INDICATION: numbness tingling both [...] MR BRAIN W/O and W CONTRAST LOCATION: [facility] DATE: 01/06/2024 INDICATION: numbness tingling both arms and chest, torso. Recheck [id number] and hx Chiari and right parietal abnormality, [...] at the right lateral aspect of the [id number] body. Ebony Cid APRN LIVESTOCK SHOWMAN IMG MRI ORDERABLES * MR Cervical Spine [...] MR BRAIN W/O and W CONTRAST LOCATION: [facility] DATE: 01/06/2024 INDICATION: numbness tingling both [...] MR BRAIN W/O and W CONTRAST LOCATION: [facility] DATE: 01/06/2024 INDICATION: numbness tingling both arms and chest, torso. Recheck [id number] and hx Chiari and right parietal abnormality, [...] at the right lateral aspect of the [id number] body. Ebony Cid APRN LIVESTOCK SHOWMAN IMG MRI ORDERABLES documented in this encounter [...] Total Score: 4 06/20/20 23 8:40 AM IV TECHNICIAN documented as of this encounter Care Teams Decorative Greens Cutter Relationship Specialty Start Date End Date Esha Grimm PA-C [address] [place] [address] PCP - General Family Medicine 05/04/23 Diana Desir [facility] [address] [place] [address] Pharmacist Pharmacist 04/17/21 Rain Galaviz PA-C [address] [place] [address] [place] [address] Physician Agriculturist Dermatology 04/28/21 Tavia Wyatt MD [address] [facility] [address] [facility] [place] [address] Dermatology 07/14/21 Erica Farrell APRN LIVESTOCK SHOWMAN [address] [place], [place] 517365 Nurse Practitioner Cardiovascular Disease 09/09/21 Rich Barrett MD 516 [facility] 9A [place] [address] Physician Ophthalmology 01/21/22 Neil Kent MD 500 [place], [place] 979775 Dermatology 02/24/22 [facility] 3033 [place], [place] 806356 Assigned MTM Pharmacist 04/07/22 Livan Sharif MD [address] [place] [address] Cardiovascular Disease 05/14/22 Catherine Cm MD [address] [facility] [place] [address] Cardiovascular Disease 07/21/22 Valery Veronica, PA-C [address] [place] [address] Physician Agriculturist Dermatology 07/21/22 Brea Quinn APRN LIVESTOCK SHOWMAN [address] [place] [address] Nurse Practitioner Dermatology 09/21/22 Brea Quinn APRN LIVESTOCK SHOWMAN 6401 [place] [address] Assigned Surgical Provider 10/09/22 [place] [address] [address] [facility] 300 [place] [address] Assigned Musculoskeletal Provider 10/09/22 Alfonso Renteria MD 5775 [facility] 200 [place], [place] 041666 Assigned Neuroscience Provider 04/02/23 Radha Lomeli APRN LIVESTOCK SHOWMAN 6405 [place] 4737700 [place] [address] Assigned Heart and Vascular Provider 05/28/23 [place] David [place] [address] [facility] [address] Ophthalmology 06/15/23 Esha Grimm PA-C [address] [place] [phone] Assigned PCP 07/16/23 Valery Veronica PA-C [address] [place] [address] 809375 Physician Agriculturist Dermatology 09/19/23 Rey Tay MD [address] [place] [address] 848165 MD Gastroenterology 09/20/23 Rocky Zepeda DO [address] [place] [address] 742775 Physician Gastroenterology 09/20/23 Philip Dumont MD [address] [place] [address] 398625 Physician Ophthalmology 09/22/23 Meredith Carrera PA-C [address] [place] [address] 548515 Assigned Gastroenterology Provider 11/01/23 Neil Kent MD [address] 330660 Dermatology 11/02/23 [place] [address] [address] [facility] [place], [place] 0[address] Neurological Surgery 12/26/23 documented as of this encounter
--- OUTSIDE RECORDS SUMMARY | 2024-03-23 15:56 | XMS_ITS | Encounter Summary ---
Author Organization [place] Address [address] [place] [address] Care Team Providers Care Yard Caller Name Role Phone Thang Diana Mayers [facility] Unavailable Rain Galaviz PA-C Unavailable Tavia Wyatt MD Unavailable Unavailable Erica Farrell APRN CUP TRIMMING MACHINE OPERATOR Unavailable Rich Barrett MD Unavailable Neil Kent MD Unavailable Diana Desir Stanislav [facility] Unavailable [phone] Livan Sharif MD Unavailable Catherine Cm MD Unavailable + Valery Veronica PA-C Unavailable [phone] Brea Quinn REGIONAL BRANCH MANAGER CUP TRIMMING MACHINE OPERATOR Unavailable Brea Quinn REGIONAL BRANCH MANAGER CUP TRIMMING MACHINE OPERATOR Unavailable Jose Francisco Johnson MD Unavailable Alfonso Renteria MD Unavailable + [phone] Esha Grimm PA-C Primary Care Provider Radha Lomeli REGIONAL BRANCH MANAGER CUP TRIMMING MACHINE OPERATOR Unavailable [phone] Jelena David OD Unavailable Esha Grimm Adam DOWC Unavailable [phone] JeremíasValeryC Unavailable Rey Tay MD Unavailable Rocky Zepeda Unavailable Philip Dumont MD Unavailable [phone] Meredith CarreraC Unavailable Neil Kent MD Unavailable Juan Pablo Emmanuel MD Unavailable [phone] Reason for Referral * Consultation (Priority: 1-2 Weeks) - Pending Review Specialty Diagnoses / Procedures Referred By Qian mayers Referred To Contact Diagnoses Numbness and tingling of upper extremity Ebony Cid APRN CUP TRIMMING MACHINE OPERATOR 500 [place] [address] Referral ID Status Reason Start Date Expiration Date V isits Requested Visits Authorized [id number] Pending Review 01/09/2024 01/08/2025 1 1 Question Answer Reason for Referral: General Neurology Scheduling Instructions: [facility] will call you to coordinate your care as prescribed by your provider. If you don't hear from a environmental marketing representative within 2 business days, please call . Additional Information: numbness, weakness episodes of the upper extremities, and spreading numbness from the neck into the torso Comments Please be aware that coverage of these services is subject to the terms and limitations of your health insurance plan. Call member services at your health plan with any benefit or coverage questions. [facility] will call you to coordinate your care as prescribed by your provider. If you don't hear from a environmental marketing representative within 2 business days, please call . Reason for Visit * Reason Onset Date Comments Results 01/09/2024 Cervical and bra in MRIs Encounter Details Date Type Department Care Team (Late st Contact Info) Description 01/09/2024 Telephone [facility] Spine and Neurosurgery 1747 [facility] [address] [place] [address] Ebony Cid, [facility] 500 [place] [address] Results (Cervical and brain MRIs) Social History [...] 03/10/2023 How often do you attend [facility] or congregational services? 1 to 4 times [...] Answer Date Recorded PHQ-2 Score 0 10/25/2023 [facility] [place] of Occupat ional Health - Occupational Stress [...] exercise at this level? 30 min 03/10/2023 [place] Depression Scale Answer Date Recorded [place] Depression Score 5 01/14/2021 Last EPDS Self [...] [facility] and Neurosurgery [address] [place] [address] [address] [place] [phone] Ebony Cid APRN CUP TRIMMING MACHINE OPERATOR 500 [place] [address] 03/27/2024 11:00 AM CDT [facility] [address] [facility] [address] [place] [phone] Jelena David, [address] [place] [address] 03/29/2024 3:30 PM CDT Therapy Visit [address] 160 [place] [phone] Ingris Thompson, PT [facility] [address] [place] [address] 04/05/2024 2:10 PM CDT Therapy Visit [address] [place] [phone] Ingris Thompson, PT [facility] [address] [place] [address] 04/19/2024 2:45 PM CDT Office Visit [address] [phone] Audrey Waite PA-C 420 [facility] [address], [facility] 603 [place], [place] [address] 05/08/2024 1:30 PM CDT Office Visit [facility] [address] [place] [phone] Lauren Claudio PA-C [address] [place] [address] Esha Grimm PA-C [address] [place] [address] 06/21/2024 2:00 PM GRINDING MACHINE OPERATOR AUTOMATIC Office Visit [facility] Neurology Clinics - [address], [address] [place] [address] [place] [address] [place] [address] Johnny Penn MD 6545 [place] [address] Scheduled Referrals Name Type Priority Associated Diagnoses Orde r Schedule Adult Neurology Supervisor Bindery Referral Referral Priority: 1-2 Weeks Numbness and tingling of upper extremity Expected: 01/09/2024 (Approximate), Expires: 01/08/2025 documented as of this encounter Visit Diagnoses Diagnosis Numbness and tingling of upper extremity- Primary documented in this encounter Additional Health Concerns Assessment Noted Time PHQ-9 Depression Total Score: 4 06/20/20 23 8:40 AM GRINDING MACHINE OPERATOR AUTOMATIC documented as of this encounter Care Teams Yard Caller Relationship Specialty Start Date End Date Esha Grimm PA-C [address] [place] [phone] PCP - General Family Medicine 05/04/23 Diana Desir, [facility] [address] [place] [address] Pharmacist Pharmacist 04/17/21 Rain Galaviz PA-C [address] [place] [address] [address] [place] [address] Physician Creative Arts Therapist Dermatology 04/28/21 Tavia Wyatt MD [address] [place] [address] [address] [facility] [place] [address] Dermatology 07/14/21 Erica Farrell, ARLENE CUP TRIMMING MACHINE OPERATOR [address] [place], [place] [address] Nurse Practitioner Cardiovascular Disease 09/09/21 Rich Barrett MD 516 [facility] 9A [place], [place] 596135 Physician Ophthalmology 01/21/22 Neil Kent MD 500 [place], [place] 552845 Dermatology 02/24/22 Diana Desir, [facility] [address] [place] [address] Assigned MTM Pharmacist 04/07/22 Livan Sharif MD [address] [place] [address] Cardiovascular Disease 05/14/22 Catherine Cm MD 6405 [facility] [address] [place] [address] Cardiovascular Disease 07/21/22 Valery Veronica, PAUcheC [address] [place] [address] Physician Creative Arts Therapist Dermatology 07/21/22 Brea Quinn APRN CUP TRIMMING MACHINE OPERATOR 500 [place] [address] Nurse Practitioner Dermatology 09/21/22 Brea Quinn APRN CUP TRIMMING MACHINE OPERATOR [address] [place] [address] Assigned Surgical Provider 10/09/22 [place] [address] [address] Assigned Musculoskeletal Provider 10/09/22 Alfonso Renteria MD 5775 [facility] 200 [place], [place] 6[address] Assigned Neuroscience Provider 04/02/23 Radha Lomeli APRN CUP TRIMMING MACHINE OPERATOR [address] [place] [address] Assigned Heart and Vascular Provider 05/28/23 Jelena David OD [address] [facility] [address] MD Ophthalmology 06/15/23 Esha Grimm PA-C [address] [place] [address]83 Assigned PCP 07/16/23 Valery Veronica PA-C [address] [place] [address] Physician Creative Arts Therapist Dermatology 09/19/23 Rey Tay MD [address] [place] [address] 553155 MD Gastroenterology 09/20/23 Rocky Zepeda DO [address] [place] [address] 482295 Physician Gastroenterology 09/20/23 Philip Dumont MD [address] [place] [address] 269935 Physician Ophthalmology 09/22/23 Meredith Carrera PA-C [address] [place] [address] 670435 Assigned Gastroenterology Provider 11/01/23 Neil Kent MD [address] 361350 Dermatology 11/02/23 [place] [address] [place] [address] Neurological Surgery 12/26/23 documented as of this encounter
--- OUTSIDE RECORDS SUMMARY | 2024-03-23 15:56 | XMS_ITS | Encounter Summary ---
Author Organization [facility] Address [address] [place] [address] Care Team Providers Care Veneer Taping Machine Operator Name Role Phone Thang Diana [place] [facility] Unavailable Rain Galaviz PA-C Unavailable Tavia Wyatt MD Unavailable Unavailable Erica Farrell APRN SENIOR AGRICULTURAL ASSISTANT Unavailable Rich Barrett MD Unavailable Neil Kent MD Unavailable Diana Desir Stanislav [facility] Unavailable [phone] Livan Sharif MD Unavailable Catherine Cm MD Unavailable + Valery Veronica PA-C Unavailable [phone] Brea Quinn ENVIRONMENTAL MANAGEMENT SPECIALIST SENIOR AGRICULTURAL ASSISTANT Unavailable [phone] Brea Quinn ENVIRONMENTAL MANAGEMENT SPECIALIST SENIOR AGRICULTURAL ASSISTANT Unavailable [phone] Jose Francisco Johnson MD Unavailable Alfonso Renteria MD Unavailable + [phone] Esha Grimm PA-C Primary Care Provider [phone] Radha Lomeli ENVIRONMENTAL MANAGEMENT SPECIALIST SENIOR AGRICULTURAL ASSISTANT Unavailable [phone] Jelena David OD Unavailable Wicho Grimmlincoln Medina PA-C Unavailable [phone] Valery VeronicaC Unavailable Rey Tay MD Unavailable ZepedaRocky Unavailable Philip Dumont MD Unavailable [phone] Meredith Carrera PA-C Unavailable Neil Kent MD Unavailable Juan Pablo Emmanuel MD Unavailable [phone] Reason for Visit * Reason Onset Date Comments Pre Visit Planning - 2 Attempts 01/02/2024 Pre charting Encounter Details Date Type Department Care Team (Late st Contact Info) Description 01/02/2024 PRE VISIT [facility] [address] [address] [place] [address] [place] [address] [address] Pre Visit Planning - 2 [...] often do you attend chur ch or yarsanism services? 1 to 4 times [...] Score 0 10/25/2023 [facility] - Occupational Stress Questionnaire [...] exercise at this level? 30 min 03/10/2023 [place] Depression Scale Answer Date Recorded [place] Depression Score 5 01/14/2021 Last EPDS Self [...] Description 03/26/2024 11:20 AM CDT Office Visit [facility] Spine and Neurosurgery [address] [place] [address] [address] [place] [address] Ebony Cid APRN SENIOR AGRICULTURAL ASSISTANT [address] [place] [address] 03/27/2024 11:00 AM CDT Office Visit [facility] [place] [address] [facility] [address] [place] [phone] Jelena David, SONJA 3305 [facility] [place] [address] 03/29/2024 3:30 PM CDT Therapy Visit [facility] [address] [place] [phone] Ingris Thompson, PT [facility] 516 [facility] 106 [place], [place] [address] 04/05/2024 2:10 PM CDT Therapy Visit [facility] [place] [address] [facility] [address] [place] [phone] Ingris Thompson, PT [facility] 516 [facility] 106 [place], [place] 6[address]45 04/19/2024 2:45 PM CDT Office Visit [address] [phone] Audrey Waite PA-C 420 [facility] [address], [facility] 603 [place], [place] [address]39[address] 05/08/2024 1:30 PM CDT Office Visit [facility] [address] [place] [phone] Lauren Claudio PA-C [address] [place], [place] [phone] Esha Grimm PA-C [address] [place] [address] 06/21/2024 2:00 PM GRINDING OPERATOR Office Visit [facility] Neurology Clinics - [address], [address] [place] [address] [place] [address] [place] [address] Johnny Penn MD 6123 [place] [address] documented as of this encounter Visit Diagnoses Not on filedocumented in this encounter Additional Health Concerns Assessment Noted Time PHQ-9 Depression Total Score: 4 06/20/20 23 8:40 AM GRINDING OPERATOR documented as of this encounter Care Teams Veneer Taping Machine Operator Relationship Specialty Start Date End Date Esha Grimm PA-C [address] [place] [address] PCP - General Family Medicine 05/04/23 Diana Desir, [facility] [address] [place] [address] Pharmacist Pharmacist 04/17/21 Rain Galaviz PA-C [address] [place] [address] [address] [place] [address] Physician Pension Manager Dermatology 04/28/21 Tavia Wyatt MD [address] [place] [address] DR ARRI[address] [facility] [place] [address] Dermatology 07/14/21 Erica Farrell APRN SENIOR AGRICULTURAL ASSISTANT 6405 [facility] [address] [place] [address] Nurse Practitioner Cardiovascular Disease 09/09/21 Rich Barrett MD 516 [facility] 9A [place], [place] [address] Physician Ophthalmology 01/21/22 Neil [place] MD 500 [place], [place] 439885 Dermatology 02/24/22 Diana Desir, [facility] 3033 [place] [address] Assigned MTM Pharmacist 04/07/22 Livan Sharif MD [address], [facility] [address] [place] [address] Cardiovascular Disease 05/14/22 Catherine Cm MD [address] [facility] [address] [place], [place] 116465 Cardiovascular Disease 07/21/22 Valery Veronica, PA-C 909 [place] [address] Physician Pension Manager Dermatology 07/21/22 Brea Quinn APRN SENIOR AGRICULTURAL ASSISTANT 500 [place], [place] 163925 Nurse Practitioner Dermatology 09/21/22 Brea Quinn APRN SENIOR AGRICULTURAL ASSISTANT 6401 [place] [address] Assigned Surgical Provider 10/09/22 [place] [address] [place] [facility] 300 [place] [address] Assigned Musculoskeletal Provider 10/09/22 Alfonso Renteria MD 5775 [facility] 200 [place] [address] Assigned Neuroscience Provider 04/02/23 Radha Lomeli APRN SENIOR AGRICULTURAL ASSISTANT 6405 [facility] [address] [place] [address] Assigned Heart and Vascular Provider 05/28/23 Jelena David OD [address] [place] [address] MD Ophthalmology 06/15/23 Esha Grimm PA-C [address] [place] [address]83 Assigned PCP 07/16/23 Valery Veronica PA-C [address] [place] [address] 748655 Physician Pension Manager Dermatology 09/19/23 Rey Tay MD [address] [place] [address] Gastroenterology 09/20/23 Rocky Zepeda DO [address] [place] [address] 708545 Physician Gastroenterology 09/20/23 Philip Dumont MD [address] [place] [address] 98[address] Physician Ophthalmology 09/22/23 Meredith Carrera PA-C [address] [place] [address] 834695 Assigned Gastroenterology Provider 11/01/23 Neil Kent MD [address] 490120 Dermatology 11/02/23 [place] [address] [place] [address] [address] Neurological Surgery 12/26/23 documented as of this encounter
--- OUTSIDE RECORDS SUMMARY | 2024-03-23 15:56 | XMS_ITS | Encounter Summary ---
Author Organization [facility] Address [address] [place] [address] Care Team Providers Care Paperhanger Assistant Name Role Phone Thang Diana [place] [facility] Unavailable [phone] Rain Galaviz PA-C Unavailable Tavia Wyatt MD Unavailable Unavailable Erica Farrell APRN MEDICAL ECONOMICS CONSULTANT Unavailable Rich Barrett MD Unavailable Neil [place] MD Unavailable Diana Desir Stanislav [facility] Unavailable [phone] Livan Sharif MD Unavailable Catherine Cm MD Unavailable + Valery Veronica PA-C Unavailable [phone] Brea Quinn CLERK CASHIER MEDICAL ECONOMICS CONSULTANT Unavailable [phone] Brea Quinn CLERK CASHIER MEDICAL ECONOMICS CONSULTANT Unavailable Jose Francisco Johnson MD Unavailable Alfonso Renteria MD Unavailable + [phone] Esha Grimm PA-C Primary Care Provider Radha Lomeli CLERK CASHIER MEDICAL ECONOMICS CONSULTANT Unavailable [phone] Jelena David OD Unavailable Esha GrimmC Unavailable [phone] Valery VeronicaC Unavailable [phone] Rey Tay MD Unavailable Rocky Zepeda DO Unavailable Philip Dumont MD Unavailable [phone] Meredith CarreraC Unavailable [phone] Neil Kent MD Unavailable Juan Pablo Emmanuel MD Unavailable [phone] Encounter Details Date Type Department Care Team [...] attend [facility] or mosque services? 1 to 4 [...] Answer Date Recorded PHQ-2 Score 0 10/25/2023 [facility] - Occupational Stress Questionnaire Answer Date [...] exercise at this level? 30 min 03/10/2023 [place] Depression Scale Answer Date Recorded [place] Depression Score 5 01/14/2021 Last EPDS [...] 03/26/2024 11:20 AM CDT Office Visit [facility] Spine and Neurosurgery 1747 [facility] 100 [place] [address] Ebony Cid, CLERK [facility]IER [facility] 500 [place], [place] [address] 03/27/2024 11:00 AM CDT Office Visit [facility] 3305 [facility] [address] [place] [phone] Jelena David, 3305 [facility] [place] [address] 03/29/2024 3:30 PM CDT Therapy Visit [facility] [address] [place] [address] 160 [place] [phone] Ingris Thompson, PT [facility] [address] [place] [address] 04/05/2024 2:10 PM CDT Therapy Visit [address] [place] [phone] Ingris Thompson, PT [facility] [address] [place] [address] 04/19/2024 2:45 PM CDT Office Visit [address] [phone] Audrey Waite PA-C [address], [facility] 603 [place], [place] [address] 05/08/2024 1:30 PM CDT Office Visit [facility] [address] [place] [address] Lauren Claudio PA-C [address] [place] [address] Esha Grimm PA-C [address] [place] [address] 06/21/2024 2:00 PM CURRENCY EXAMINER Office Visit [facility] Neurology Clinics - [address], [address] [place] [address] [place] [address] [place] [address] Johnny Penn MD 6545 [place], [place] [phone] documented as of this encounter Visit Diagnoses Not on filedocumented in this encounter Additional Health Concerns Infection Onset Date Last Indicated Resolved Time Rule Out COVID-19 12/26/2023 12/26/2023 12/26/2023 9:50 AM CDT Assessment Noted Time PHQ-9 Depression Total Score: 4 06/20/20 23 8:40 AM CURRENCY EXAMINER documented as of this encounter Care Teams Paperhanger Assistant Relationship Specialty Start Date End Date Esha Grimm PA-C [address] [place] [address] PCP - General Family Medicine 05/04/23 Diana Desir, [facility] [address] [place] [address] Pharmacist Pharmacist 04/17/21 Rain Galaviz PA-C [address] [place] [address] [address] [place] [address] Physician Final Cigar And Box Examiner Dermatology 04/28/21 Tavia Wyatt MD [address] [place] [address] [address] [place] [address] Dermatology 07/14/21 Erica Farrell, [place] MEDICAL ECONOMICS CONSULTANT [address] [place] [address] Nurse Practitioner Cardiovascular Disease 09/09/21 Rich Barrett MD 516 [facility] 9A [place], [place] 57[address] Physician Ophthalmology 01/21/22 Neil Kent MD 500 [place], [place] 777365 Dermatology 02/24/22 Diana Desir, [facility] [address] [place] [address] Assigned MTM Pharmacist 04/07/22 Livan Sharif MD [address] [facility] [address] [place] [address] Cardiovascular Disease 05/14/22 Catherine Cm MD 6405 [facility] [address] [place] [address] Cardiovascular Disease 07/21/22 Valery Veronica PAUcheC [address] [place] [address] Physician Final Cigar And Box Examiner Dermatology 07/21/22 Brea Quinn APRN MEDICAL ECONOMICS CONSULTANT [address] [place] [address] Nurse Practitioner Dermatology 09/21/22 Brea Quinn APRN MEDICAL ECONOMICS CONSULTANT [address] [place] [address] Assigned Surgical Provider 10/09/22 [place] [address] [address] Assigned Musculoskeletal Provider 10/09/22 Alfonso Renteria MD 5775 [facility] 200 [place], [place] 489026 Assigned Neuroscience Provider 04/02/23 Radha Lomeli APRN MEDICAL ECONOMICS CONSULTANT [address] [place] [address] Assigned Heart and Vascular Provider 05/28/23 Jelena David OD [address] [facility] [address] MD Ophthalmology 06/15/23 Esha Grimm PA-C [address] [place] [address]43[address]83 Assigned PCP 07/16/23 Valery Veronica PA-C [address] [place] [address] Physician Final Cigar And Box Examiner Dermatology 09/19/23 Rey Tay MD [address] [place] [address] 277785 MD Gastroenterology 09/20/23 Rocky Zepeda DO [address] [place] [address] 207595 Physician Gastroenterology 09/20/23 Philip Dumont MD [address] [place] [address] 221745 Physician Ophthalmology 09/22/23 Meredith Carrera PA-C [address] [place] [address] 269645 Assigned Gastroenterology Provider 11/01/23 Neil Kent MD [address] 578500 Dermatology 11/02/23 [place] [address] [place] [address] Neurological Surgery 12/26/23 documented as of this encounter
--- OUTSIDE RECORDS SUMMARY | 2024-03-23 15:56 | XMS_ITS | Encounter Summary ---
Author Organization [facility] Address [address] [place] [address] Care Team Providers Care Pretzel Cooker Name Role Phone Thang Diana [place] [facility] Unavailable Rain Galaviz PA-C Unavailable Tavia Wyatt MD Unavailable Unavailable Erica Farrell APRN STUDY ABROAD COORDINATOR Unavailable Rich Barrett MD Unavailable Neil Kent MD Unavailable Diana Desir Stanislav [facility] Unavailable [phone] Livan Sharif MD Unavailable Catherine Cm MD Unavailable + Valery Veronica PA-C Unavailable [phone] Brea Quinn ROOF DESIGNER STUDY ABROAD COORDINATOR Unavailable Brea Quinn ROOF DESIGNER STUDY ABROAD COORDINATOR Unavailable Jose Francisco Johnson MD Unavailable Alfonso Renteria MD Unavailable + [phone] Esha Grimm PA-C Primary Care Provider [phone] Radha Lomeli ROOF DESIGNER STUDY ABROAD COORDINATOR Unavailable [phone] Jelena David OD Unavailable Esha Grimm Adam PA-C Unavailable [phone] Valery VeronicaC Unavailable [phone] Rey Tay MD Unavailable Rocky Zepeda Unavailable Philip Dumont MD Unavailable Meredith Carrera-C Unavailable [phone] Neil Kent MD Unavailable Juan Pablo Emmanuel MD Unavailable [phone] Reason for Visit * Reason Onset Date Comments Appointment 01/06/2024 Encounter Details Date Type Department Care Team (Late st Contact Info) Description 01/06/2024 Telephone [facility] Neurology [address], [address] [place] [address] [place] [address] [address] [place] [address] Appointment Social History Tobacco Use [...] Date Recorded PHQ-2 Score 0 10/25/2023 [facility] of Occupat [...] exercise at this level? 30 min 03/10/2023 [place] Depression Scale Answer Date Recorded [place] Depression Score 5 01/14/2021 Last EPDS Self [...] them about appointment scheduled with Juan Pablo Emmnauel MD on 01/09/24 in our [place] location. A voicemail was left with a call back number if the patient has questions or would like to reschedule. documented in this encounter Plan of Treatment Upcoming Encounters Date Type Department Care Team (Late st Contact Info) Description 03/26/2024 11:20 AM CDT Office Visit [facility] Spine and Neurosurgery [address] [place] [address] [address] [place] [address] Ebony Cid, [facility] 500 [place] [address] 03/27/2024 11:00 AM CDT Office Visit [facility] [address] [place] [address] [address] [place] [phone] Frankie Jelena Garcia, [place] [address] [facility] [place] [address] 03/29/2024 3:30 PM CDT Therapy Visit [facility] [address] [place] [address] 160 [place] [phone] Ingris Thompson, PT [facility] [address] [place] [address] 106 [place] [address] 04/05/2024 2:10 PM CDT Therapy Visit [facility] [address] [place] [address] 160 [place] [phone] Ingris Thompson, PT [facility] [address] [place] [address] 106 [place] [address] 04/19/2024 2:45 PM CDT Office Visit [address] [phone] Audrey Waite PA-C 420 [facility] [address], [facility] 603 [place] [address] 05/08/2024 1:30 PM CDT Office Visit [facility] [address] [place] [phone] Lauren Claudio PA-C [address] [place], [place] [phone] Esha Grimm PA-C [address] [place] [phone] 06/21/2024 2:00 PM COGENERATION TECHNICIAN Office Visit [facility] Neurology [facility] - [place] 6545 [facility], [address] [place] [phone] [place] [address] [place] [address] Johnny Penn MD [address] [place] [address] documented as of this encounter Visit Diagnoses Not on filedocumented in this encounter Additional Health Concerns Assessment Noted Time PHQ-9 Depression Total Score: 4 06/20/20 23 8:40 AM COGENERATION TECHNICIAN documented as of this encounter Care Teams Pretzel Cooker Relationship Specialty Start Date End Date Esha Grimm PA-C [address] [place] [phone] PCP - General Family Medicine 05/04/23 Diana Desir, [facility] [address] [place], [place] [address]386 Pharmacist Pharmacist 04/17/21 Rain Galaviz PA-C [address] [place] [address] [address] [place] [address] Physician Knockout Man Dermatology 04/28/21 Tavia Wyatt MD [address] [place] [address] [address] [place] [address] Dermatology 07/14/21 Erica Farrell APRN STUDY ABROAD COORDINATOR [address] [place] [address] Nurse Practitioner Cardiovascular Disease 09/09/21 Rich Barrett MD 516 [facility], CLINIC 9A [place], [place] 7[address] Physician Ophthalmology 01/21/22 Neil Kent MD 500 [place] [address] Dermatology 02/24/22 [facility] 3033 [place] [address] Assigned [place] Pharmacist 04/07/22 Livan Sharif MD [address] 684205 Cardiovascular Disease 05/14/22 Catherine Cm MD 6405 [facility] [address] 020335 Cardiovascular Disease 07/21/22 Valery Veronica, PAUcheC 909 [place], [place] 131345 Physician Knockout Man Dermatology 07/21/22 Brea Quinn APRN STUDY ABROAD COORDINATOR 500 [place] [address] Nurse Practitioner Dermatology 09/21/22 Brea Quinn APRN STUDY ABROAD COORDINATOR [address] [facility] [place] [address] Assigned Surgical Provider 10/09/22 [place] [address] [place] [address] Assigned Musculoskeletal Provider 10/09/22 Alfonso Renteria MD [address] 200 [place] [address] Assigned Neuroscience Provider 04/02/23 Radha Lomeli APRN STUDY ABROAD COORDINATOR 6405 [facility] [address] [place] [address] Assigned Heart and Vascular Provider 05/28/23 [place] David [place] [address] [facility] [place] [address] MD Ophthalmology 06/15/23 Esha Grimm PA-C [address] [place] [address] Assigned PCP 07/16/23 Valery Veronica PA-C [address] [place] [address] 229125 Physician Knockout Man Dermatology 09/19/23 Rey Tay MD [address] [place] [address] 845705 MD Gastroenterology 09/20/23 Rocky Zepeda DO [address] [place] [address] 261545 Physician Gastroenterology 09/20/23 Philip Dumont MD 6 [place], [place] 318205 Physician Ophthalmology 09/22/23 Meredith Carrera PA-C 909 [place] [address] Assigned Gastroenterology Provider 11/01/23 Neil Kent MD [address] 513790 MD Dermatology 11/02/23 [place] [address] [place] [address] [id number] Neurological Surgery 12/26/23 documented as of this encounter
--- OUTSIDE RECORDS SUMMARY | 2024-03-23 15:56 | XMS_ITS | Encounter Summary ---
Author Organization [facility] Address [address] [place] [address] Care Team Providers Care Sinker Winder Name Role Phone Thang Diana [place] [facility] Unavailable Rain Galaviz PA-C Unavailable [phone] Tavia Wyatt MD Unavailable Unavailable Erica Farrell APRN FISHING REEL ASSEMBLER Unavailable Rich Barrett MD Unavailable Neil Kent MD Unavailable Diana Desir Stanislav [facility] Unavailable [phone] Livan Sharif MD Unavailable Catherine Cm MD Unavailable + Valery Veronica PA-C Unavailable [phone] Brea Quinn CNMT FISHING REEL ASSEMBLER Unavailable Brea Quinn CNMT FISHING REEL ASSEMBLER Unavailable [phone] Jose Francisco Johnson MD Unavailable Alfonso Renteria MD Unavailable + [phone] Esha Grimm PA-C Primary Care Provider Radha Lomeli CNMT FISHING REEL ASSEMBLER Unavailable [phone] Jelena David OD Unavailable [phone] Esha GrimmC Unavailable [phone] Valery VeronicaC Unavailable [phone] Rey Tay MD Unavailable Duane Rockyanne [facility] Unavailable Philip Dumont MD Unavailable [phone] Meredith CarreraC Unavailable [phone] Neil Kent MD Unavailable Juan Pablo Emmanuel MD Unavailable [phone] Encounter Details Date Type Department Care Team [...] often do you attend [facility] or christian services? 1 to 4 [...] PHQ-2 Score 0 10/25/2023 [facility] Occupat ional [facility] - Occupational Stress Questionnaire Answer Date [...] exercise at this level? 30 min 03/10/2023 [place] Depression Scale Answer Date Recorded [place] Depression Score 5 01/14/2021 Last EPDS Self [...] [facility] [address] [facility] 100 [place] [address] Ebony Cid, CNMT [facility] 500 [place], [place] 519565 03/27/2024 11:00 AM CDT Office Visit [facility] [address] [facility] [address] [place] [phone] Jelena David, [address] [facility] [place] [address] 03/29/2024 3:30 PM CDT Therapy Visit [facility] [address] [place] [address] 160 [place] [phone] Ingris Thompson, PT [facility] [address] [place] [address] 065915 04/05/2024 2:10 PM CDT Therapy Visit [address] [place] [phone] Ingris Thompson, PT [facility] [address] [place] [address] 04/19/2024 2:45 PM CDT Office Visit [address] [phone] Audrey Waite PA-C [address], [facility] [address] [place], [place] 084205 05/08/2024 1:30 PM CDT Office Visit [facility] [address] [place] [address] Lauren Claudio PA-C [address] [place] [address] Esha Grimm PA-C [id number] [place] [address] 06/21/2024 2:00 PM COOKER PROCESS CHEESE Office Visit [facility] Neurology Clinics - [address], [address] [place] [address] [place] [address] [place] [address] Johnny Penn MD 6545 [place] [address] documented as of this encounter Visit Diagnoses Not on filedocumented in this encounter Additional Health Concerns Assessment Noted Time PHQ-9 Depression Total Score: 4 06/20/20 23 8:40 AM COOKER PROCESS CHEESE documented as of this encounter Care Teams Sinker Winder Relationship Specialty Start Date End Date Esha Grimm PA-C [id number] [place] [address] PCP - General Family Medicine 05/04/23 Diana Desir, [facility] 3033 [place] [address] Pharmacist Pharmacist 04/17/21 Rain Galaviz PA-C [address] [place] [address] [address] [place] [address] Physician Product Development Consultant Dermatology 04/28/21 Tavia Wyatt MD [address] [place] [address] DR [facility] [facility] [address] Dermatology 07/14/21 Erica Farrell APRN FISHING REEL ASSEMBLER [address] [place] 816385 Nurse Practitioner Cardiovascular Disease 09/09/21 Rich Barrett MD [address] [place] [address] 671805 Physician Ophthalmology 01/21/22 Neil Kent MD [address] [place] [address] 647435 Dermatology 02/24/22 Diana Desir, [facility] [address] [place] [address] Assigned MTM Pharmacist 04/07/22 Livan Sharif MD [address] [place] 838395 Cardiovascular Disease 05/14/22 Catherine Cm MD [address] [facility] [address] [place] [address] Cardiovascular Disease 07/21/22 Valery Veronica PA-C 909 [place], [place] 465245 Physician Product Development Consultant Dermatology 07/21/22 Brea Quinn APRN FISHING REEL ASSEMBLER 500 [place], [place] 743095 Nurse Practitioner Dermatology 09/21/22 Brea Quinn APRN FISHING REEL ASSEMBLER 6401 [facility] [place] 334812 Assigned Surgical Provider 10/09/22 [place] [address] [facility] 300 [place] [address] Assigned Musculoskeletal Provider 10/09/22 Alfonso Renteria MD 5775 [facility] 200 [place], [place] 398116 Assigned Neuroscience Provider 04/02/23 Radha Lomeli APRN FISHING REEL ASSEMBLER 6405 [facility] [address] [place] [address] Assigned Heart and Vascular Provider 05/28/23 Jelena David OD [address] [facility] [address] Ophthalmology 06/15/23 Esha Grimm PA-C [address] [place] [address]58[address]83 Assigned PCP 07/16/23 Valery Veronica PA-C [address] [place] [address] Physician Product Development Consultant Dermatology 09/19/23 Rey Tay MD [address] [place] [address] MD Gastroenterology 09/20/23 Rocky Zepeda DO [address] [place] [address] Physician Gastroenterology 09/20/23 Philip Dumont MD [address] [place] [address] Physician Ophthalmology 09/22/23 Meredith Carrera PA-C [address] [place] [address] Assigned Gastroenterology Provider 11/01/23 Neil Kent MD [address] [address] Dermatology 11/02/23 [place] [address] [place] [address] Neurological Surgery 12/26/23 documented as of this encounter
--- OUTSIDE RECORDS SUMMARY | 2024-03-23 15:56 | XMS_ITS | Encounter Summary ---
Author Organization [facility] Address [address] [place] [address] Care Team Providers Care Document Manager Name Role Phone Thang Diana Mayers [facility] Unavailable [phone] Rain Galaviz PA-C Unavailable Tavia Wyatt MD Unavailable Unavailable Erica Farrell APRN REGIONAL ENGINEER Unavailable Rich Barrett MD Unavailable Neil Kent MD Unavailable Diana Desir Stanislav [facility] Unavailable [phone] Livan Sharif MD Unavailable Catherine Cm MD Unavailable + Valery Veronica PA-C Unavailable [phone] Brea Quinn LABORATORY TECH REGIONAL ENGINEER Unavailable [phone] Brea Quinn LABORATORY TECH REGIONAL ENGINEER Unavailable Jose Francisco Johnson MD Unavailable Alfonso Renteria MD Unavailable + [phone] Esha Grimm PA-C Primary Care Provider Radha Lomeli LABORATORY TECH REGIONAL ENGINEER Unavailable [phone] Jelena David OD Unavailable Esha Grimm Adam PA-C Unavailable [phone] JeremíasValeryC Unavailable Rey Tay MD Unavailable Rocky Zepeda Unavailable Philip Dumont MD Unavailable [phone] Meredith CarreraC Unavailable [phone] Neil Kent MD Unavailable Juan Pablo Emmanuel MD Unavailable [phone] Reason for Referral * Rehab Therapy Physical Therapy (Priority: 1-2 Weeks) - Pending Review Specialty Diagnoses / Procedures Referred By Qian mayers Referred To Contact Diagnoses Chiari malformation type I (H) Neck pain Ebony Cid APRN REGIONAL ENGINEER [address] [place] [address] Referral ID Status Reason Start Date Expiration Date V isits Requested Visits Authorized [id number] Pending Review 01/05/2024 01/04/2025 1 1 Question Answer Course of Action: Evaluation and Treatment Specialty Services: Per Associated Diagnosis Scheduling Instructions: [employer] will call you to coordinate your care as prescribed by your provider. If you don't hear from a corporate sales representative within 2 business days, please call . Additional Information: neck pain, arm numbness. eval treat strengthening range of motion Comments Please be aware that coverage of these services is subject to the terms and limitations of your health insurance plan. Call member services at your health plan with any benefit or coverage questions. [employer] will call you to coordinate your care as prescribed by your provider. If you don't hear from a corporate sales representative within 2 business days, please call . * Diagnostic Imaging MRI (Routine) - Closed Specialty Diagnoses / Procedures Referred By Qian mayers Referred To Contact Radiology. Diagnoses Abnormal finding on MRI of brain Chiari malformation type I (H) Procedures MR Brain w/o & w Contrast Ebony Cid APRN REGIONAL ENGINEER [address] [place] [address] Referral ID Status Reason Start Date Expiration Date Visits Re quested Visits Authorized [id number] Closed 01/05/2024 01/04/2025 1 1 * Diagnostic Imaging MRI (Routine) - Closed Specialty Diagnoses / Procedures Referred By Qian mayers Referred To Contact Radiology. Diagnoses Chiari malformation type I (H) Numbness and tingling of upper extremity Procedures MR Cervical Spine w/o & w Contrast Ebony Cid APRN REGIONAL ENGINEER [address] [place] [address] Referral ID Status Reason Start Date Expiration Date Visits Re quested Visits Authorized [id number] Closed 01/05/2024 01/04/2025 1 1 Reason for Visit * Reason Comments Consult Neck Pain * Consultation (Routine: Next available opening) - Closed Specialty Diagnoses / Procedures Referred By Qian mayers Referred To Contact Diagnoses Tingling of both upper extremities Anthony Doe, [place] [address] [place] [address] Referral ID Status Reason Start Date Expiration Date Visits Re quested Visits Authorized [id number] Closed 11/16/2023 11/15/2024 1 1 Encounter Details Date Type Department Care Team (Late st Contact Info) Description 01/05/2024 1:40 PM CDT Office Visit [facility] [address] [place] [phone] Ebony Cid APRN REGIONAL ENGINEER [address] [place], [place] 553285 Abnormal finding on MRI of brain (Primary [...] do you attend chur or adventist services? 1 to 4 times [...] Answer Date Recorded PHQ-2 Score 0 10/25/2023 [facility] Occupat ional Health - Occupational Stress [...] exercise at this level? 30 min 03/10/2023 [place] Depression Scale Answer Date Recorded [place] Depression Score 5 01/14/2021 Last EPDS Self [...] Instructions * Patient Instructions* Ebony Cid APRN REGIONAL ENGINEER - 01/05/2024 1:40 PM CDT Imaging (brain and cspine MRI) has been ordered today. Radiology will call you to schedule. Please call below if you do not hear from them in the next couple of days. [facility] Scheduling: Please call [phone] to schedule your image(s) (select option #1). There are 3 different locations: [facility] [address] [place] [address] Imaging - [place] [address] [facility], [address] [facility] [address] [place] 2[address] [place] [phone] ~You have been referred for Physical Therapy to [facility]. They will call youto schedule an appointment. Scheduling phone number is [phone] for [facility], or [place] location. If you have not heard from the scheduling office within 2 business days, please call [phone] for ALL other locations. Discussed the importance of core strengthening, ROM, stretching exercises and how each of these entities is important in decreasing pain and improving [facility] spine health. The purpose of physical therapy is to teach you an individualized home exercise program. These exercises need to be performed every day in order to decrease pain and prevent future occurrences of pain. You have been previously referred to see the Neurology Department. Please call [phone]. to schedule your appointment ~Please call our [facility] Nurse Navigation line with any questions or concerns about your treatment plan, if symptoms worsen and you would like to be seen urgently, or if you have any new or worsening numbness, weakness, or problems controlling bladder and bowel function. 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 She has had [...] Surgeon: Galo Burrell MD; Location: HEART CARDIAC MUNICIPAL BOND TRADER ESOPHAGOSCOPY, GASTROSCOPY, DUODENOSCOPY (EGD), COMBINED N/A 06/26/2021 [...] left 5/5 Biceps:right 5/5 left 5/5, Hand Fundraiser: right 5/5 left 5/5, Intrinsics: right 5/5 [...] leg raises RESULTS: Prior medical records from [facility] and [facility] Everywhere were reviewed today. IMAGING: Spine imaging [...] EXAM: MR CERVICAL SPINE W/O CONTRAST LOCATION: [facility] DATE/TIME: 11/12/2021 5:50 PM INDICATION: Left [...] foraminal stenosis. CHIDI SWEET MD SYSTEM ID: [id number] This note was dictated using voice recognition software. Any grammatical or context distortions areunintentional and inherent to the software. Ebony Cid ELECTRONICS ENGINEERING TECHNOLOGIST-C [facility] O. [phone] documented in this encounter Plan of Treatment Upcoming Encounters Date Type Department Care Team (Late st Contact Info) Description 03/26/2024 11:20 AM CDT Office Visit [facility] 1747 [facility] 100 [place] [address] Ebony Cid APRN REGIONAL ENGINEER 500 [place], [place] [phone] 03/27/2024 11:00 AM CDT Office Visit [facility] 3305 [facility] 160 [place] [phone] Jelena David, [address] [place] [address] [place] [address] 03/29/2024 3:30 PM CDT Therapy Visit [address] [phone] Ingris Thompson, PT [facility] [address] [place] [address] 04/05/2024 2:10 PM CDT Therapy Visit [address] [phone] Ingris Thompson, PT [facility] [address] [place] [address] 04/19/2024 2:45 PM CDT Office Visit [facility] [address] [place] [phone] Audrey Waite PA-C [address], [facility] 603 [place], [place] [phone] 05/08/2024 1:30 PM CDT Office Visit [facility] [address] [place] [address] Lauren Claudio PA-C [address] [place] [address] Esha Grimm PA-C [address] [place] [address] 06/21/2024 2:00 PM DIET TECH Office Visit [facility] [address], [address] [place] [address] [place] [address] [place] [address] Johnny Penn MD 6545 [place] [address] Scheduled Referrals Name Type Priority Associated Diagnoses Orde r Schedule Physical Therapy Anode Builder Referral Referral Priority: 1-2 Weeks Chiari malformation [...] MR BRAIN W/O and W CONTRAST LOCATION: [facility] DATE: 01/06/2024 INDICATION: numbness tingling both arms [...] MR BRAIN W/O and W CONTRAST LOCATION: [facility] DATE: 01/06/2024 INDICATION: numbness tingling both arms and chest, torso. Recheck [id number] and hx Chiari and right parietal abnormality, [...] at the right lateral aspect of the [id number] body. Ebony Cid APRN REGIONAL ENGINEER IMG MRI ORDERABLES * MR Cervical Spine [...] MR BRAIN W/O and W CONTRAST LOCATION: [facility] DATE: 01/06/2024 INDICATION: numbness tingling both arms [...] MR BRAIN W/O and W CONTRAST LOCATION: [facility] DATE: 01/06/2024 INDICATION: numbness tingling both arms and chest, torso. Recheck [id number] and hx Chiari and right parietal abnormality, [...] at the right lateral aspect of the [id number] body. Ebony Cid APRN REGIONAL ENGINEER IMG MRI ORDERABLES documented in this encounter [...] Total Score: 4 06/20/20 23 8:40 AM DIET TECH documented as of this encounter Care Teams Document Manager Relationship Specialty Start Date End Date Esha Grimm PA-C [address] [place] [phone] PCP - General Family Medicine 05/04/23 Diana Desir, [facility] [address] [place] [address] Pharmacist Pharmacist 04/17/21 Rain Galaviz PA-C [address] [place] [address] [address] [place] [address] Physician Cook Tortilla Dermatology 04/28/21 Tavia Wyatt MD [address] [place] [address] [address] [facility] [place] [place] [address] Dermatology 07/14/21 Erica Farrell APRN REGIONAL ENGINEER 6[address] [facility] [address] [place] [address] Nurse Practitioner Cardiovascular Disease 09/09/21 Rich Barrett MD 516 [facility] [address] [place], [place] 9[address] Physician Ophthalmology 01/21/22 Neil Kent MD 500 [place] [address] Dermatology 02/24/22 Diana Desir, [facility] 3033 [place] [address] Assigned MTM Pharmacist 04/07/22 Livan Sharif MD [address] [facility] [address] [place] [address] Cardiovascular Disease 05/14/22 Catherine Cm MD [address] [place] [phone] [place] [address] Cardiovascular Disease 07/21/22 Valery Veronica, PAUcheC [address] [place] [address] 336075 Physician Cook Tortilla Dermatology 07/21/22 Brea Quinn APRN REGIONAL ENGINEER [address] [place] [address] Nurse Practitioner Dermatology 09/21/22 Brea Quinn APRN REGIONAL ENGINEER [address] [place] [address] 658222 Assigned Surgical Provider 10/09/22 [place] [address] [address] Assigned Musculoskeletal Provider 10/09/22 Alfonso Renteria MD [address] [address] Assigned Neuroscience Provider 04/02/23 Radha Lomeli APRN REGIONAL ENGINEER [address] [place] [address] Assigned Heart and Vascular Provider 05/28/23 [place] [address] [facility] [address] MD Ophthalmology 06/15/23 Esha Grimm PA-C [address] [place] [phone] Assigned PCP 07/16/23 Valery Veronica PA-C [address] [place] [address] 452365 Physician Cook Tortilla Dermatology 09/19/23 Rey Tay MD [address] [place] [address] 953135 MD Gastroenterology 09/20/23 Rocky Zepeda DO [address] [place] [address] 710545 Physician Gastroenterology 09/20/23 Philip Dumont MD [address] [place] [address] 668455 Physician Ophthalmology 09/22/23 Meredith Carrera PA-C [address] [place] [address] 298975 Assigned Gastroenterology Provider 11/01/23 Neil Kent MD [address] [address] Dermatology 11/02/23 [place] [address] [place] [address] Neurological Surgery 12/26/23 documented as of this encounter
--- OUTSIDE RECORDS SUMMARY | 2024-03-23 15:56 | XMS_ITS | Encounter Summary ---
Author Organization [facility] Address [address] [place] [address] Care Team Providers Care Global Lead Name Role Phone Thang Diana [place] [facility] Unavailable Rain Galaviz PA-C Unavailable Tavia Wyatt MD Unavailable Unavailable Erica Farrell APRN CREATIVE SERVICES DIRECTOR Unavailable Rich Barrett MD Unavailable Neil Kent MD Unavailable Diana Desir Stanislav [facility] Unavailable [phone] Livan Sharif MD Unavailable Catherine Cm MD Unavailable + Valery Veronica PA-C Unavailable [phone] Brea Quinn RESTAURANT BARTENDER CREATIVE SERVICES DIRECTOR Unavailable Brea Quinn RESTAURANT BARTENDER CREATIVE SERVICES DIRECTOR Unavailable Jose Francisco Johnson MD Unavailable Alfonso Renteria MD Unavailable + [phone] Esha Grimm PA-C Primary Care Provider [phone] Radha Lomeli RESTAURANT BARTENDER CREATIVE SERVICES DIRECTOR Unavailable [phone] Jelena David OD Unavailable Esha Grimm Adam PA-C Unavailable [phone] Valery VeronicaC Unavailable Rey Tya MD Unavailable Rocky Zepeda Unavailable Philip Dumont MD Unavailable Meredith Carrera-C Unavailable Neil Kent MD Unavailable Juan Pablo Emmanuel MD Unavailable Reason for Visit * Reason Onset Date Comments Appointment 01/09/2024 Encounter Details Date Type Department Care Team (Late st Contact Info) Description 01/09/2024 Telephone [facility] [address], [address] [place] [address] [place] [address] [place] [address] Appointment Social History Tobacco Use [...] Score 0 10/25/2023 [facility] [...] exercise at this level? 30 min 03/10/2023 Hoven Depression Scale Answer Date Recorded Hoven Depression Score 5 01/14/2021 Last EPDS Self [...] Office Visit [facility] [address] [place] [address] [address] [place] [address] Ebony Cid APRN CREATIVE SERVICES DIRECTOR 500 [place] [address] 03/27/2024 11:00 AM CDT Office Visit [place] [address] [facility] [address] [place] [phone] Jelena David, [place] [address] [facility] [place] [address] 03/29/2024 3:30 PM CDT Therapy Visit [facility] [address] [place] [address] 160 [place] [phone] Ingris Thompson, PT [facility] [address] [place] [address] 106 [place] [address] 04/05/2024 2:10 PM CDT Therapy Visit [facility] [address] [place] [address] 160 [place] [phone] Ingris Thompson, PT [facility] [address] [place] [address] 106 [place], [place] [address] 04/19/2024 2:45 PM CDT Office Visit [address] [phone] Audrey Waite PA-C 420 [facility] [address], [facility] 603 [place] [address] 05/08/2024 1:30 PM CDT Office Visit [facility] [address] [place] [phone] Lauren Claudio PA-C [address] [place], [place] [phone] Esha Grimm PA-C [address] [place] [address] 06/21/2024 2:00 PM [place] Office Visit [facility] [address] [place] [phone] [place] [address] [place] [address] Johnny Penn MD [address] [facility] [place] [address] documented as of this encounter Visit Diagnoses Not on filedocumented in this encounter Additional Health Concerns Assessment Noted Time PHQ-9 Depression Total Score: 4 06/20/20 23 8:40 AM [place] documented as of this encounter Care Teams Global Lead Relationship Specialty Start Date End Date Esha Grimm PA-C [address] [place] [phone] PCP - General Family Medicine 05/04/23 [facility] [address] [place], [place] [phone] Pharmacist Pharmacist 04/17/21 Rain Galaviz PA-C [address] [place] [address] [address] [place] [address] Physician Assembler Chassis Dermatology 04/28/21 Tavia Wyatt MD [address] [place] [address] [address] [place] [address] Dermatology 07/14/21 Erica Farrell APRN CREATIVE SERVICES DIRECTOR [address] [place] [address] Nurse Practitioner Cardiovascular Disease 09/09/21 Rich Barrett MD 516 [facility] 9A [place], [place] [address] Physician Ophthalmology 01/21/22 Neil Kent MD 500 [place], [place] 374715 Dermatology 02/24/22 Diana Desir, [facility] 30[address] [place], [place] 330956 Assigned MTM Pharmacist 04/07/22 Livan Sharif MD [address] 050695 Cardiovascular Disease 05/14/22 Catherine Cm MD [address] 183555 Cardiovascular Disease 07/21/22 Valery Veronica, PA-C 9 [place], [place] 223535 Physician Assembler Chassis Dermatology 07/21/22 Brea Quinn APRN CREATIVE SERVICES DIRECTOR 500 [place] [address] Nurse Practitioner Dermatology 09/21/22 Brea Quinn APRN CREATIVE SERVICES DIRECTOR [address] [place], [place] [address]sia [place] 366412 Assigned Surgical Provider 10/09/22 [place] [address] 759427 Assigned Musculoskeletal Provider 10/09/22 Alfonso Renteria MD [address] [facility] [address] [place] [address] Assigned Neuroscience Provider 04/02/23 Radha Lomeli APRN CREATIVE SERVICES DIRECTOR 6405 [facility] [address] [place] [address] Assigned Heart and Vascular Provider 05/28/23 [place]ena David [place] [address] [facility] [address] [place] [id number] MD Ophthalmology 06/15/23 Esha Grimm PA-C [address] [place] [phone] Assigned PCP 07/16/23 Valery Veronica PA-C [address] [place] [address] 559255 Physician Assembler Chassis Dermatology 09/19/23 Rey Tay MD [address] [place] [address] 178705 Gastroenterology 09/20/23 Rocky Zepeda DO [address] [place] [address] 462625 Physician Gastroenterology 09/20/23 Philip Dumont MD [address] [place] [address] 546055 Physician Ophthalmology 09/22/23 Meredith Carrera PA-C 909 [place] [address] Assigned Gastroenterology Provider 11/01/23 Neil Kent MD [address] [address] Dermatology 11/02/23 [place] [address] 559687 Neurological Surgery 12/26/23 documented as of this encounter
--- OUTSIDE RECORDS SUMMARY | 2024-03-23 15:57 | XMS_ITS | Encounter Summary ---
Author Organization [facility] Address [address] [place] [address] Care Team Providers Care Momd Teacher Name Role Phone Thang Diana [place] [facility] Unavailable Rain Galaviz PA-C Unavailable Tavia Wyatt MD Unavailable Unavailable Erica Farrell APRN SHAKE SAWYER Unavailable Rich Barrett MD Unavailable Neil Kent MD Unavailable Diana Desir Stanislav [facility] Unavailable [phone] Livan Sharif MD Unavailable Catherine Cm MD Unavailable + Valery Veronica PA-C Unavailable [phone] Brea Quinn EDITOR IN CHIEF NEWSPAPER SHAKE SAWYER Unavailable Brea Quinn EDITOR IN CHIEF NEWSPAPER SHAKE SAWYER Unavailable Jose Francisco Johnson MD Unavailable Alfonso Renteria MD Unavailable + [phone] Esha Grimm PA-C Primary Care Provider Radha Lomeli EDITOR IN CHIEF NEWSPAPER SHAKE SAWYER Unavailable [phone] Jelena David OD Unavailable Esah Grimm PA-C Unavailable [phone] Valery Veronica PA-C Unavailable [phone] Rey Tay MD Unavailable Rocky Zepeda DO Unavailable Philip Dumont MD Unavailable [phone] Meredith Carrera PA-C Unavailable [phone] Neil Kent MD Unavailable Juan Pablo Emmanuel MD Unavailable [phone] Audrey Waite PA-C Unavailable [phone] Encounter Details Date Type Department Care Team (Late st Contact Info) Description 11/21/2023 MyC Medical Advice [facility] Gastroenterology Clinic [address] [phone] Sofia Alcantar Social History Tobacco Use Types [...] Score 0 10/25/2023 [facility] Questionnaire [...] exercise at this level? 30 min 03/10/2023 Ribera Depression Scale Answer Date Recorded Ribera Depression Score 5 01/14/2021 Last EPDS Self [facility] [address] [place] [address] Ebony Cid, EDITOR IN CHIEF NEWSPAPER [facility] 500 [place] [address] 03/27/2024 11:00 AM CDT Office Visit [facility] [place] [address]305 [facility] [address] [place] [phone] Jelena David, 3305 [facility] [place] [address] 03/29/2024 3:30 PM CDT Therapy Visit [facility] [place] [address] [place] [address] [address] [place] [phone] Ingris Thompson, PT [facility] 6 [facility] 106 [place] [address] 04/05/2024 2:10 PM CDT Therapy Visit [facility] [place] [address] [facility] [address] [place] [phone] Ingris Thompson, PT [facility] [address] [facility] [address] [facility] 106 [place] [address] 04/19/2024 2:45 PM CDT Office Visit [facility] 830 [place] [phone] Audrey Waite PA-C [address], [facility] 603 [place], [place] [address] 05/08/2024 1:30 PM CDT Office Visit [facility] [address] [place] [address] Lauren Claudio PA-C [address] [place], [place] [phone] Esha Grimm PA-C [address] [place] [address] 06/21/2024 2:00 PM FILTER TANK TENDER HELPER Office Visit [facility] [place] [address] [place] [address], [address] [place] [address] [place] [address] [place], [place] [phone] Johnny Penn MD 3015 [place] [address] documented as of this encounter Visit Diagnoses Not on filedocumented in this encounter Additional Health Concerns Infection Onset Date Last Indicated Resolved Time Rule Out COVID-19 12/26/2023 12/26/2023 12/26/2023 9:50 AM CDT Assessment Noted Time PHQ-9 Depression Total Score: 4 06/20/20 23 8:40 AM FILTER TANK TENDER HELPER documented as of this encounter Care Teams Momd Teacher Relationship Specialty Start Date End Date Esha Grimm PA-C [address] [place] [phone] PCP - General Family Medicine 05/04/23 Diana Desir, [facility] [address] [place], [place] [address] Pharmacist Pharmacist 04/17/21 Rain Galaviz PA-C [address] [place] [address] [address] [facility] [facility] [place] [address] Physician Jig Grinder Set Up Operator Dermatology 04/28/21 Tavia Wyatt MD [address] [place] [address] [address] [facility] [address] Dermatology 07/14/21 Erica Farrell APRN SHAKE SAWYER 6405 [facility] [address] [place] [address] Nurse Practitioner Cardiovascular Disease 09/09/21 Rich Barrett MD 516 [facility] 9[address] [place], [place] 8698[address] Physician Ophthalmology 01/21/22 Neil Kent MD 500 [place], [place] 156725 Dermatology 02/24/22 Diana Desir, [facility] 3033 [place] [address] Assigned MTM Pharmacist 04/07/22 Livan Sharif MD [address] [facility] [address] [place] [address] Cardiovascular Disease 05/14/22 Catherine Cm MD [address] [place] 4035500 [place] [address] Cardiovascular Disease 07/21/22 Valery Veronica, PAUcheC [address] [place] [address] Physician Jig Grinder Set Up Operator Dermatology 07/21/22 Brea Quinn APRN SHAKE SAWYER [address] [place] [address] Nurse Practitioner Dermatology 09/21/22 Brea Quinn APRN SHAKE SAWYER [address] [place] [address] Assigned Surgical Provider 10/09/22 [place] [address] [address] Assigned Musculoskeletal Provider 10/09/22 Alfonso Renteria MD 5775 [facility] 200 [place] [address] Assigned Neuroscience Provider 04/02/23 Radha Lomeli APRN SHAKE SAWYER [address] [place] [address] Assigned Heart and Vascular Provider 05/28/23 Jelena David OD [address] [facility] [place] [address] MD Ophthalmology 06/15/23 Esha Grimm PA-C [address] [place] [phone] Assigned PCP 07/16/23 Valery Veronica PA-C [address] [place] [address] 919805 Physician Jig Grinder Set Up Operator Dermatology 09/19/23 Rey Tay MD [address] [place] [address] MD Gastroenterology 09/20/23 Rocky Zepeda DO [address] [place] [address] 120795 Physician Gastroenterology 09/20/23 Philip Dumont MD [address] [place] [address] 365565 Physician Ophthalmology 09/22/23 Meredith Carrera PA-C [address] [place] [address] 622425 Assigned Gastroenterology Provider 11/01/23 Neil Kent MD [address] 678170 Dermatology 11/02/23 [place] [address] [address] Neurological Surgery 12/26/23 Audrey Waite PA-C 500 [place], [place] 665625 Physician Jig Grinder Set Up Operator Dermatology 02/28/24 documented as of this encounter
--- OUTSIDE RECORDS SUMMARY | 2024-03-23 15:57 | XMS_ITS | Encounter Summary ---
Author Organization [facility] Address [address] [place] [address] Care Team Providers Care Citrix Engineer Name Role Phone Thang Diana Mayers [facility] Unavailable Rain Galvaiz PA-C Unavailable Tavia Wyatt MD Unavailable Unavailable Erica Farrell APRN PILOT INSTRUCTOR Unavailable Rich Barrett MD Unavailable Neil Kent MD Unavailable Diana Desir Stanislav [facility] Unavailable [phone] Livan Sharif MD Unavailable Catherine Cm MD Unavailable + Vaelry Veronica PA-C Unavailable [phone] Brea Quinn SPLITTER HEAD PILOT INSTRUCTOR Unavailable Brea Quinn SPLITTER HEAD PILOT INSTRUCTOR Unavailable Jose Francisco Johnson MD Unavailable Alfonso Renteria MD Unavailable + [phone] Esha Grimm PA-C Primary Care Provider Radha Lomeli SPLITTER HEAD PILOT INSTRUCTOR Unavailable [phone] Jelena David OD Unavailable Esha Grimm Adam PA-C Unavailable [phone] Valery Veronica PA-C Unavailable Rey Tay MD Unavailable Rocky Zepeda DO Unavailable Philip Dumont MD Unavailable Meredith Carrera PA-C Unavailable [phone] Neil Kent MD Unavailable Reason for Referral * Diagnostic Imaging XR (Routine) - Pending Review Specialty Diagnoses / Procedures Referred By Qian mayers Referred To Contact Radiology. Diagnoses Chest tightness SOB (shortness of breath) Procedures XR Chest 2 Views Helen Cortez APRN CNP [address] [place] [address] Referral ID Status Reason Start Date Expiration Date V isits Requested Visits Authorized [id number] Pending Review 12/21/2023 12/20/2024 1 1 Reason for Visit * Reason Comments Urgent Care Patient presents wit h chest tightness and shortness of breath for 2x days. Patient also c/o vaginal odor. Patient would like sti testing. Vaginal Problem Shortness of Breath Encounter Details Date Type Department Care Team (Late st Contact Info) Description 12/21/2023 12:40 PM CDT Office Visit [facility] [place] [address] [place] [address] Helen Cortez APRN PILOT INSTRUCTOR [address] [place] [address] 987130 Vaginal odor (Primary Dx); Chest tightness; SOB [...] you attend [employer] or [employer]? 1 to 4 times [...] Score 0 10/25/2023 [facility] - Occupational [...] exercise at this level? 30 min 03/10/2023 [place] Depression Scale Answer Date Recorded [place] Depression Score 5 01/14/2021 Last EPDS Self [...] encounter Progress Notes * Helen Cortez, ARLENE PILOT INSTRUCTOR - 12/21/2023 12:40 PM CDT URGENT CARE ASSESSMENT AND PLAN: ICD-10-CM 1. Vaginal odor N89.8 UA with Microscopic reflex to Culture - Clinic Collect Wet prep - Clinic Collect Chlamydia trachomatis/Neisseria gonorrhoeae by PCR - Clinic Collect UA Microscopic with Reflex to Culture Treponema Abs w Reflex to RPR and Titer Hepatitis C antibody HIV Antigen Antibody Combo [place] 2. Chest tightness R07.89 EKG 12-lead complete [...] Negative Ketones Urine Negative Negative mg/dL Specific [place] Urine 1.010 1.003 - 1.035 Blood Urine [...] Status --------- ------ CBC with platelets and d...[[id number]] Abnormal Final result Please view results for [...] [facility] [address] [facility] [address] [place] [address] Ebony Cid, SPLITTER HEAD PILOT INSTRUCTOR [address] [place] [address] 03/27/2024 11:00 AM CDT [facility] [address] [facility] [address] [place] [address] Jelena David, [address] [facility] [place] [address] 03/29/2024 3:30 PM CDT Therapy Visit [facility] [address] [facility] [address] [place] [address] Ingris Thompson, PT [facility] 6 [facility] 106 [place], [place] [address] 04/05/2024 2:10 PM CDT Therapy Visit [facility] [address] [facility] [address] [place] [phone] [facility]gris Thompson[facility] PT [facility] [address] [place] [address] 106 [place] [address] 04/19/2024 2:45 PM CDT Office Visit [facility] 830 [place] [address] Audrey Waite PA-C [address] [place] [address] B385, [facility] 603 [place] [address] 05/08/2024 1:30 PM CDT Office Visit [facility] [address] [place] [address] Lauren Claudio PA-C [address] [place] [address] Esha Grimm PA-C [address] [place] [address] 06/21/2024 2:00 PM PROFESSOR OF GENETICS Office Visit [facility] [place] [address] [facility], [address] [place] [address] [place] [address] [place], [place] [phone] Johnny Penn MD 6545 [place], [place] 968285 documented as of this encounter Procedures Procedure [...] 12/21/2023 1:39 PM CDT Helen Cortez APRN PILOT INSTRUCTOR LAB - BLOOD ORDERABL ES LV LABORATORY [facility] [place] [facility] [address] [facility] Lab (no room number, 1st floor of clinic) [place] [address], [facility] [phone] * HIV Antigen Antibody Combo [place] (12/21/2023 1:39 PM CDT) [facility] HIV Antigen Antibody Combo Nonreactive Nonreactive 12/22/2023 2:42 AM CDT [facility] Comment:Negative HIV-1 p24 a [...] 12/21/2023 1:39 PM CDT Helen Cortez APRN [facility] LAB - BLOOD ORDERABL Performing Organization Address [facility] Co de Phone Number [facility] Core Lab [address] [facility], [address] [address] * Hepatitis C antibody (12/21/2023 [...] 12/21/2023 1:39 PM CDT Helen Cortez APRN [facility] LAB - BLOOD ORDERABL Performing Organization Address [facility] Co de Phone Number LABORATORY [facility] Core Lab [address] [facility], [address] [address] * Treponema Abs w Reflex to RPR and Titer (12/21/2023 1:39 PM CDT) Treponema Antibody Total Nonreactive Nonreactive 12/21/2023 6:44 PM CDT SPECIALTY CORE/PROT/EN DO Blood BLOOD SPECIMEN / Unknown Venipuncture / Unknown 12/21/2023 1:39 PM CDT 12/21/2023 1:39 PM CDT Helen Cortez APRN PILOT INSTRUCTOR LAB - BLOOD ORDERABL ES UM SPECIALTY CORE/PROT/ENDO [facility] Specialty Core/Prot/Endo 500 [facility] [address] [facility], Room [address] * D dimer quantitative (12/21/2023 1:39 PM CDT) Pathologist [facility] D-Dimer Quantitative <0.27 0.00 - 0.50 ug/mL FEU 12/21/2023 2:51 PM CDT LABORATORY Blood BLOOD SPECIMEN / Unknown Venipuncture / Unknown 12/21/2023 1:39 PM CDT 12/21/2023 1:39 PM CDT Narrative LABORATORY - 12/21/2023 2:51 PM CDT This D-dimer assay is intended for use in conjunction with a clinical pretest probability assessment model to exclude pulmonary embolism (PE) and deep venous thrombosis (DVT) in outpatients suspected of PE or DVT. The cut-off value is 0.50 ug/mL FEU. Helen Cortez APRN PILOT INSTRUCTOR LAB - BLOOD ORDERABL ES Performing Organization Address [facility] Co de Phone Number LABORATORY [facility] Lab [address] Lab (1st floor, no room number) [place] [address], [facility] * Comprehensive metabolic panel (12/21/2023 1:39 PM CDT) Pathologist [facility] Sodium 138 135 - 145 mmol/L 12/21/2023 [...] 12/21/2023 1:39 PM CDT Helen Cortez ARLENE GRANADOS LAB - BLOOD ORDERABL ES [facility] Acute Care Lab [address] Lab (1st floor, no room number) [place] [address], [facility] * XR Chest 2 Views (12/21/2023 1:26 [...] is unremarkable. CHIDI SCHWARTZ MD Helen Cortez ARLENE GRAANDOS IMG DIAGNOSTIC IMAGI NG ORDERABLES * UA [...] LAB - URINE ORDERABL ES LV LABORATORY [facility] [place] [address] [facility] Lab (no room number, 1st floor of clinic) [place] [address], [facility] [phone] * Chlamydia trachomatis/Neisseria gonorrhoeae by PCR - Clinic Collect (12/21/2023 12:44 PM CDT) Chlamydia Trachomatis Negative Negative 12/22/2023 11:38 AM CDT [facility] IDD LABORATORY Comment: Negative for C. trachomatis rRNA by knit goods washer mediated amplification. A negative result by knit goods washer mediated amplification does not preclude the presence of infection because results are dependent on proper and adequate collection, absence of inhibitors and sufficient rRNA to be detected. Neisseria gonorrhoeae Negative Negative 12/22/2023 11:38 AM CDT [facility] Comment:Negative for N. gono rrhoeae rRNA by knit goods washer mediated amplification. A negative result by knit goods washer mediated amplification does not preclude the presence of C. trachomatis infection because results are dependent on proper and adequate collection, absence of inhibitors and sufficient rRNA to be detected. Swab VAGINAL STRUCTURE / Unknown Non-blood Collection / Unknown 12/21/2023 12:44 PM CDT 12/21/2023 12:54 PM CDT Helen Cortez APRN, CNP LAB - MICRO GENERAL ORDERABLES [facility]ORATORY [facility] Inf. Diseases Diag. Lab 500 [facility], [address] [place] [address], [facility] * (ABNORMAL) Wet prep - Clinic Collect [...] 12:44 PM CDT 12/21/2023 12:54 PM CDT Talishadimitry Diego JACOBS PILOT INSTRUCTOR LAB - MICRO GENERAL ORDERABLES LABORATORY [facility] [place] [facility] [address] [facility] Lab (no room number, 1st floor of clinic) [place] [address], [facility] [phone] * UA with Microscopic reflex to Culture - Clinic Collect (12/21/2023 12:44 PM CDT) Color Urine Yellow Colorless, Straw, Light Yellow, Yellow 12/21/2023 12:58 PM CDT LABORATORY Appearance Urine Clear Clear 12/21/19 24 12:58 PM CDT LABORATORY Glucose Urine Negative Negative mg/dL 12/21/2023 12:58 PM CDT LABORATORY Bilirubin Urine Negative Negative 12:58 PM CDT LABORATORY Ketones Urine Negative Negative mg/dL 12/21/2023 12:58 PM CDT LABORATORY Specific [place] Urine 1.010 1.003 - 1.035 12/21/2023 12:58 PM CDT LABORATORY Blood Urine Negative Negative 12/21/2023 12:58 PM CDT LABORATORY pH Urine 7.0 5.0 - 7.0 12/21/2023 12:58 PM CDT LABORATORY Protein Albumin Urine Negative Negative mg/dL 12/21/2023 12:58 PM CDT LABORATORY Urobilinogen Urine 0.2 0.2, 1.0 E.U./dL 12/21/2023 12:58 PM CDT LABORATORY Nitrite Urine Negative Negative 12/21/2023 12:58 PM CDT LABORATORY Leukocyte Esterase Urine Negative Negative 12/21/2023 12:58 PM CDT LABORATORY Urine MID-STREAM URINE SPECIMEN / Unknown Non-blood Collection / Unknown 12/21/2023 12:44 PM CDT 12/21/2023 12:54 PM CDT Helen Cortez APRN, CNP LAB - URINE ORDERABL ES LV LABORATORY [facility] [place] [facility] [address] [facility] Lab (no room number, 1st floor of clinic) [place] [address], [facility] [phone] * EKG 12-lead complete w/read - Clinics [...] 4 06/20/20 23 8:40 AM PROFESSOR OF GENETICS documented as of this encounter Care Teams Citrix Engineer Relationship Specialty Start Date End Date Esha Grimm PA-C [address] [place] [phone] PCP - General Family Medicine 05/04/23 Diana Desir, [facility] [address] [place] [address] Pharmacist Pharmacist 04/17/21 Rain Galaviz PA-C [address] [place] [address] [place] [address] Physician Medical Researcher Dermatology 04/28/21 Tavia Wyatt MD [address] [place] [address] [place] [address] Dermatology 07/14/21 Erica Farrell APRN PILOT INSTRUCTOR [address] [place], [place] 8612[address] Nurse Practitioner Cardiovascular Disease 09/09/21 Rich Barrett MD 516 [facility] 9[address] [place], [place] 7[address]75 Physician Ophthalmology 01/21/22 Neil Kent MD [address] [place], [place] 907915 Dermatology 02/24/22 Diana Dseir, [facility] 30[address] [place], [place] 937366 Assigned [facility] Pharmacist 04/07/22 Livan Sharif MD [address], [facility]00 [place], [place] 799855 Cardiovascular Disease 05/14/22 Catherine Cm MD [address] [facility] [address] 736135 Cardiovascular Disease 07/21/22 Valery Veronica, PA-C [address] [place] [address] 990145 Physician Medical Researcher Dermatology 07/21/22 Brea Quinn APRN PILOT INSTRUCTOR 500 [place], [place] 882405 Nurse Practitioner Dermatology 09/21/22 Brea Quinn APRN PILOT INSTRUCTOR [address] [place] [address] [place] [address] [phone] Assigned Surgical Provider 10/09/22 [place] [address] [facility] 300 [place] [address] Assigned Musculoskeletal Provider 10/09/22 Alfonso Renteria MD [address] [facility] 200 [place] [address] Assigned Neuroscience Provider 04/02/23 Radha Lomeli APRN PILOT INSTRUCTOR [address] [place] [address] Assigned Heart and Vascular Provider 05/28/23 Jelena David OD [address] [place] [address] Ophthalmology 06/15/23 Esha Grimm PA-C [address] [place] [address] Assigned PCP 07/16/23 Valery Veronica PA-C [address] [place] [address] Physician Medical Researcher Dermatology 09/19/23 Rey Tay MD [address] [place] [address] 475525 Gastroenterology 09/20/23 Rocky Zepeda DO [address] [place] [address] 120375 Physician Gastroenterology 09/20/23 Philip Dumont MD 6 [place], [place] 776665 Physician Ophthalmology 09/22/23 Meredith Carrera PA-C 9 [place], [place] 095715 Assigned Gastroenterology Provider 11/01/23 Neil Kent MD [address] [address] Dermatology 11/02/23 documented as of this encounter
--- OUTSIDE RECORDS SUMMARY | 2024-03-23 15:57 | XMS_ITS | Encounter Summary ---
Author Organization [facility] Address [address] [place] [address] Care Team Providers Care Station Manager Name Role Phone Thang Diana [place] [facility] Unavailable Rain Galaviz PA-C Unavailable Tavia Wyatt MD Unavailable Unavailable Erica Farrell APRN SPECIAL OFFICER Unavailable Rich Barrett MD Unavailable Neil Kent MD Unavailable Diana Desir Stanislav [facility] Unavailable [phone] Livan Sharif MD Unavailable Catherine Cm MD Unavailable + Valery Veronica PA-C Unavailable [phone] Brea Quinn ORTHOPEDIC PHYSICIAN SPECIAL OFFICER Unavailable Brea Quinn ORTHOPEDIC PHYSICIAN SPECIAL OFFICER Unavailable Jose Francisco Johnson MD Unavailable Alfonso Renteria MD Unavailable [phone] Esha Grimm PA-C Primary Care Provider Radha Lomeli ORTHOPEDIC PHYSICIAN SPECIAL OFFICER Unavailable [phone] Jelena David OD Unavailable Esha Grimm PA-C Unavailable [phone] Valery Veronica PA-C Unavailable [phone] Rey Tay MD Unavailable Rocky Zepeda DO Unavailable Philip Dumont MD Unavailable Meredith Carrera PA-C Unavailable Neil Kent MD Unavailable Juan Pablo Emmanuel MD Unavailable [phone] Audrey Waite PA-C Unavailable [phone] Reason for Visit * Reason Onset Date Comments Call Back 12/21/2023 Schedule appt to brandy Encounter Details Date Type Department Care Team (Late st Contact Info) Description 12/21/2023 Telephone [facility] 6[address] [facility] [address] [place] [address] Livan Sharif MD [address] [facility] [address] [place] [address] Call Back (Schedule appt tomorrow [...] at this level? 30 min 03/10/2023 [place] Depression Scale Answer Date Recorded [place] Depression Score 5 01/14/2021 Last EPDS [...] on wait list for . Routing to care center manager. Carley RN [facility] * Telephone Encounter - Suleman Whitingen - 12/21/2023 12:34 PM CDT [facility] Call Center Phone Message May a [...] Visit [facility] [address] [facility] [address] [place] [address] Ebony Cid, ARLENE [facility] [address] [place] [address] 03/27/2024 11:00 AM CDT Office Visit [facility] [place] [address] [facility] [address] [place] [address] Jelena David, OD 3305 [facility] [place] [address] 03/29/2024 3:30 PM CDT Therapy Visit [facility] [place] [address] [place] [address] [address] [place] [address] Ingris Thompson, PT [facility] 516 [facility] 106 [place] [address] 04/05/2024 2:10 PM CDT Therapy Visit [facility] [place] [address] [facility] [address] [place] [address] Ingris Thompson, PT [facility] [address] [facility] [address] [facility] 106 [place], [place] [address] 04/19/2024 2:45 PM CDT Office Visit [facility] 830 [place] [phone] Audrey Waite PA-C 420 [facility] [address], [facility] 603 [place], [place] 508125 05/08/2024 1:30 PM CDT [facility] Visit [facility] [address] [place] [phone] Lauren Claudio PA-C [address] [place], [place] [phone] Esha Grimm PA-C [address] [place] [phone] 06/21/2024 2:00 PM DISPLAY ASSOCIATE Office Visit [facility] [place] [address] [place] [address], [address] [place] [address] [place] [address] [place] [phone] Johnny Penn MD 6534 [place] [address] documented as of this encounter Visit Diagnoses Not on filedocumented in this encounter Additional Health Concerns Infection Onset Date Last Indicated Resolved Time Rule Out COVID-19 12/26/2023 12/26/2023 12/26/2023 9:50 AM CDT Assessment Noted Time PHQ-9 Depression Total Score: 4 06/20/20 23 8:40 AM DISPLAY ASSOCIATE documented as of this encounter Care Teams Station Manager Relationship Specialty Start Date End Date Esha Grimm PA-C [address] [place] [address] PCP - General Family Medicine 05/04/23 Diana Desir, [facility] [address] [place] [address] Pharmacist Pharmacist 04/17/21 Rain Galaviz PA-C [address] [place] [address] [address] [facility] [place] [place] [address] Physician Burner Hand Dermatology 04/28/21 Tavia Wyatt MD [address] [place] [address] DR RAZO [facility][note 3] [place] [address] Dermatology 07/14/21 Erica Farrell APRN SPECIAL OFFICER [address] [facility] [address] [place] [address] Nurse Practitioner Cardiovascular Disease 09/09/21 Rich Barrett MD 516 [facility] 9[address] [place], [place] [address] Physician Ophthalmology 01/21/22 Neil Kent MD 500 [place], [place] 85[address] Dermatology 02/24/22 Diana Desir, [facility] 3033 [place], [place] [address]66 Assigned MTM Pharmacist 04/07/22 Livan Sharif MD [address], [facility] [address] [place], [place] [address] Cardiovascular Disease 05/14/22 Catherine Cm MD [address] [facility] [address] [place], [place] [address] Cardiovascular Disease 07/21/22 Valery Veronica, PAUcheC 9 [place], [place] 456985 Physician Burner Hand Dermatology 07/21/22 Brea Quinn APRN SPECIAL OFFICER 500 [place], [place] 4660[address] Nurse Practitioner Dermatology 09/21/22 Brea Quinn APRN SPECIAL OFFICER [address] [place] [address] 885252 Assigned Surgical Provider 10/09/22 [place] [address] [address] [facility] 300 [place] [address] Assigned Musculoskeletal Provider 10/09/22 Alfonso Renteria MD 5775 [facility] 200 [place], [place] 8[address] Assigned Neuroscience Provider 04/02/23 Radha Lomeli APRN SPECIAL OFFICER [address] [place], [place] [address] Assigned Heart and Vascular Provider 05/28/23 Frankie Jelena [place] [address] [facility] [place] [address] MD Ophthalmology 06/15/23 Esha Grimm PA-C [address] [place] [address] Assigned PCP 07/16/23 Valery Veronica PA-C [address] [place] [address]13495 Physician Burner Hand Dermatology 09/19/23 Rey Tay MD [address] [place] [address]695 Gastroenterology 09/20/23 Rocky Zepeda DO [address] [place] [address] 997945 Physician Gastroenterology 09/20/23 Philip Dumont MD [address] [place] [address]8815 Physician Ophthalmology 09/22/23 Meredith Carrera PA-C [address] [place] [address]3795 Assigned Gastroenterology Provider 11/01/23 Neil Kent MD [address] [address] Dermatology 11/02/23 [place] [address] 224[address] Neurological Surgery 12/26/23 Audrey Waite PA-C 500 [place] [address] Physician Burner Hand Dermatology 02/28/24 documented as of this encounter
--- OUTSIDE RECORDS SUMMARY | 2024-03-23 15:57 | XMS_ITS | Encounter Summary ---
Author Organization [place] Address [address] [place] [address] Care Team Providers Care Bullet Lubricating Machine Operator Name Role Phone Thang Diana [place] [facility] Unavailable Rain Galaviz PA-C Unavailable Tavia Wyatt MD Unavailable Unavailable Erica Farrell APRN BATTING MACHINE OPERATOR Unavailable Rich Barrett MD Unavailable Neil Kent MD Unavailable Diana Desir Stanislav [facility] Unavailable [phone] Livan Sharif MD Unavailable Catherine Cm MD Unavailable + Valery Veronica PA-C Unavailable [phone] Brea Quinn MARKET INVESTIGATOR BATTING MACHINE OPERATOR Unavailable Brea Quinn MARKET INVESTIGATOR BATTING MACHINE OPERATOR Unavailable [phone] Jose Francisco Johnson MD Unavailable Alfonso Renteria MD Unavailable + [phone] Esha Grimm PA-C Primary Care Provider Radha Lomeli MARKET INVESTIGATOR BATTING MACHINE OPERATOR Unavailable Jelena David OD Unavailable Esha Grimm PA-C Unavailable [phone] Valery Veronica PA-C Unavailable [phone] Rey Tay MD Unavailable Rocky Zepeda DO Unavailable Philip Dumont MD Unavailable [phone] Meredith Carrera PA-C Unavailable [phone] Neil Kent MD Unavailable Juan Pablo Emmanuel MD Unavailable Audrey Waite PA-C Unavailable Reason for Visit * Reason Onset Date Comments Appointment 12/02/2023 Clarification Encounter Details Date Type Department Care Team (Late st Contact Info) Description 12/02/2023 Telephone [facility] Heart [address] [place] [address] Radha Lomeli APRN [facility] [address] [facility] [address] [place] [address] Appointment (Clarification) Social History Tobacco [...] attend [facility] or adventist services? 1 to 4 times [...] Answer Date Recorded PHQ-2 Score 0 10/25/2023 [facility] [place] of Occupat ional Health - Occupational [...] at this level? 30 min 03/10/2023 [place] Depression Scale Answer Date Recorded [place] Depression Score 5 01/14/2021 Last EPDS Self [...] Questions pertaining to OV's scheduled. Carley ZABALA [facility] * Telephone Encounter - Janett Fragoso - 12/02/2023 8:56 AM CDT [facility] Call [facility] [...] [facility] [address] [facility] [address] [place] [phone] Ebony Cid, MARKET INVESTIGATOR [facility] 500 [place] [address] 03/27/2024 11:00 AM CDT [facility] [address] [facility] [address] [place] [phone] Jelena David, 3[address] [facility] [place] [address] 03/29/2024 3:30 PM CDT Therapy Visit [facility] [address] [place] [address] 160 [place] [phone] Ingris Thompson, PT [facility] 6 [facility] 106 [place] [address] 04/05/2024 2:10 PM CDT Therapy Visit [facility] [address] [facility] 160 [place] [phone] Ingris Thompson, PT [facility] [address] [place] [address] 106 [place], [place] 786565 04/19/2024 2:45 PM CDT Office Visit [facility] 830 [place] [address] Audrey Waite PA-C [address] [place] [address] B385, [facility] 603 [place] [address] 05/08/2024 1:30 PM CDT Office Visit [facility] [address] [place] [phone] Lauren Claudio PA-C [address] [place] [address] Esha Grimm PA-C [address] [place] [address] 06/21/2024 2:00 PM REPAIRER KILN CAR Office Visit [facility]rology [facility]ics - [place] [address] [place] [address], [address] [place] [address] [place] [address] [place] [address] Johnny Penn MD 6545 [place] [address] documented as of this encounter Visit Diagnoses Not on filedocumented in this encounter Additional Health Concerns Infection Onset Date Last Indicated Resolved Time Rule Out COVID-19 12/26/2023 12/26/2023 12/26/2023 9:50 AM CDT Assessment Noted Time PHQ-9 Depression Total Score: 4 06/20/20 23 8:40 AM REPAIRER KILN CAR documented as of this encounter Care Teams Bullet Lubricating Machine Operator Relationship Specialty Start Date End Date Esha Grimm PA-C [id number] [place] [address] PCP - General Family Medicine 05/04/23 Diana Desir, [facility] 3033 [place] [address] Pharmacist Pharmacist 04/17/21 Rain Galaviz PA-C [address] [place] [address] [address] [place] [address] Physician Calender Let Off Helper Dermatology 04/28/21 Tavia Wyatt MD [address] [place] [address] [place] [address] Dermatology 07/14/21 Erica Farrell APRN BATTING MACHINE OPERATOR [address] [place] [address] Nurse Practitioner Cardiovascular Disease 09/09/21 Rich Barrett MD [address] [place] [address] 037275 Physician Ophthalmology 01/21/22 Neil Kent MD [address] [place] [address] 164715 Dermatology 02/24/22 Diana Desir, [facility] 30[address] [place], [place] 712306 Assigned [place] Pharmacist 04/07/22 Livan Sharif MD [address], [facility]00 [place] 245045 Cardiovascular Disease 05/14/22 Catherine Cm MD [address] [facility]00 [place] 453585 Cardiovascular Disease 07/21/22 Valery Veronica, PA-C [address] [place] [address] 466655 Physician Calender Let Off Helper Dermatology 07/21/22 Brea Quinn APRN BATTING MACHINE OPERATOR 500 [place], [place] 035545 Nurse Practitioner Dermatology 09/21/22 Brea Quinn APRN BATTING MACHINE OPERATOR 6401 [place], [place] 764992 Assigned Surgical Provider 10/09/22 [place] [address] [address] [facility] 300 [place], [place] 547467 Assigned Musculoskeletal Provider 10/09/22 Alfonso Renteria MD 5775 [facility] 200 [place], [place] 47760416 Assigned Neuroscience Provider 04/02/23 Radha Lomeli APRN BATTING MACHINE OPERATOR [address] 093375 Assigned Heart and Vascular Provider 05/28/23 Jelena David OD [address] [facility] [address] [place] [id number] Ophthalmology 06/15/23 Esha Grimm PA-C [address] [place] [phone] Assigned PCP 07/16/23 Valery Veronica PA-C 909 [place], [place] 820755 Physician Calender Let Off Helper Dermatology 09/19/23 Rey Tay MD 909 [place] [address] Gastroenterology 09/20/23 Rocky Zepeda DO 500 [place] [address] Physician Gastroenterology 09/20/23 Philip Dumont MD 516 [place] [address] Physician Ophthalmology 09/22/23 Meredith Carrera PA-C 9 [place] [address] Assigned Gastroenterology Provider 11/01/23 Neil Kent MD [address] [address] Dermatology 11/02/23 [place] [address] [place] [address] Neurological Surgery 12/26/23 Audrey Waite PA-C 500 [place] [address] Physician Calender Let Off Helper Dermatology 02/28/24 documented as of this encounter
--- OUTSIDE RECORDS SUMMARY | 2024-03-23 15:57 | XMS_ITS | Encounter Summary ---
Author Organization [place] Address [address] [place] [address] Care Team Providers Care Powder Nipper Name Role Phone Thang Diana [place] [facility] Unavailable Rain Galaviz PA-C Unavailable Tavia Wyatt MD Unavailable Unavailable Erica Farrell APRN MOUSE BREEDER Unavailable Rich Barrett MD Unavailable Neil Kent MD Unavailable Diana Desir Stanislav [facility] Unavailable [phone] Livan Sharif MD Unavailable Catherine Cm MD Unavailable + Valery Veronica PA-C Unavailable [phone] Brea Quinn ROUNDING MACHINE TENDER MOUSE BREEDER Unavailable Brea Quinn ROUNDING MACHINE TENDER MOUSE BREEDER Unavailable Jose Francisco Johnson MD Unavailable Alfonso Renteria MD Unavailable + [phone] Esha Grimm PA-C Primary Care Provider [phone] Radha Lomeli ROUNDING MACHINE TENDER MOUSE BREEDER Unavailable [phone] Jelena David OD Unavailable Alfa Eshalincoln DOWC Unavailable [phone] Valery VeronicaC Unavailable [phone] Rey Tay MD Unavailable Rocky Zepeda Unavailable Philip Dumont MD Unavailable [phone] Meredith CarreraC Unavailable [phone] Neil Kent MD Unavailable Encounter Details Date [...] 10/25/2023 [facility] of Occupat ional [facility] - Occupational Stress Questionnaire Answer [...] exercise at this level? 30 min 03/10/2023 [place] Depression Scale Answer Date Recorded [place] Depression Score 5 01/14/2021 Last EPDS [...] Description 03/26/2024 11:20 AM CDT Office Visit [facility] Spine and Neurosurgery [address] [facility] [address] [place] [phone] Ebony Cid, ROUNDING MACHINE TENDER [facility] 500 [place], [place] 284575 03/27/2024 11:00 AM CDT Office Visit [facility] [place] [address] [facility] [address] [place] [address] Jelena David, [address] [place] [address] [place] [address] 03/29/2024 3:30 PM CDT Therapy Visit [facility] [address] [place] [address] 160 [place] [phone] Ingris Thompson, PT [facility] [address] [place] [address] 04/05/2024 2:10 PM CDT Therapy Visit [facility] [address] [place] [address] [address] [place] [phone] Ingris Thompson, PT [facility] [address] [place] [address] 04/19/2024 2:45 PM CDT Office Visit [address] [phone] Audrey Waite PA-C [address], [facility] 603 [place], [place] 104145 05/08/2024 1:30 PM CDT Office Visit [facility] [address] [place] [address] Lauren Claudio PA-C [address] [place] [address] Esha Grimm PA-C [id number] [place] [address] 06/21/2024 2:00 PM YARN HAULER Office Visit [facility] Neurology Clinics - [address], [address] [place] [address] [place] [address] [place] [address] Johnny Penn MD 6545 [place] [address] documented as of this encounter Visit Diagnoses Not on filedocumented in this encounter Additional Health Concerns Assessment Noted Time PHQ-9 Depression Total Score: 4 06/20/20 23 8:40 AM YARN HAULER documented as of this encounter Care Teams Powder Nipper Relationship Specialty Start Date End Date Esha Grimm PA-C [id number] [place] [address] PCP - General Family Medicine 05/04/23 Diana Desir, [facility] [address] [place] [address] Pharmacist Pharmacist 04/17/21 Rain Galaviz PA-C [address] [place] [address] [address] [place] [address] Physician Care Clinician Dermatology 04/28/21 Tavia Wyatt MD [address] [place] [address] [address] [place] [address] Dermatology 07/14/21 Erica Farrell APRN MOUSE BREEDER [address] [place] 944085 Nurse Practitioner Cardiovascular Disease 09/09/21 Rich Barrett MD 516 [facility] 9A [place], [place] 015295 Physician Ophthalmology 01/21/22 Neil Kent MD 500 [place], [place] 602325 Dermatology 02/24/22 Diana Desir, [facility] [address] [place] [address] Assigned MTM Pharmacist 04/07/22 Livan Sharif MD [address] [place] [address] Cardiovascular Disease 05/14/22 Catherine Cm MD 6408 [facility] S [facility] [address] [place] [address] Cardiovascular Disease 07/21/22 Valery Veronica PA-C 909 [place] [address] Physician Care Clinician Dermatology 07/21/22 Brea Quinn APRN MOUSE BREEDER [address] [place] [address] Nurse Practitioner Dermatology 09/21/22 Brea Quinn APRN MOUSE BREEDER [address] [place] [address] Assigned Surgical Provider 10/09/22 [place] [address] [address] [facility] 300 [place] [address] Assigned Musculoskeletal Provider 10/09/22 Alfonso Renteria MD 5775 [facility] 200 [place], [place] 376186 Assigned Neuroscience Provider 04/02/23 Radha Lomeli APRN MOUSE BREEDER 6405 [facility] [address] [place] [address] Assigned Heart and Vascular Provider 05/28/23 Jelena David OD [address] [place] [address] Ophthalmology 06/15/23 Esha Grimm PA-C [address] [place] [address]-12[address]83 Assigned PCP 07/16/23 Valery Veronica PA-C [address] [place] [address] Physician Care Clinician Dermatology 09/19/23 Rey Tay MD [address] [place] [address] MD Gastroenterology 09/20/23 Rocky Zepeda DO [address] [place] [address] 438245 Physician Gastroenterology 09/20/23 Philip Dumont MD [address] [place] [address] 707945 Physician Ophthalmology 09/22/23 Meredith Carrera PA-C [address] [place] [address] 579705 Assigned Gastroenterology Provider 11/01/23 Neil Kent MD [address] 437570 Dermatology 11/02/23 documented as of this encounter
--- OUTSIDE RECORDS SUMMARY | 2024-03-23 15:57 | XMS_ITS | Encounter Summary ---
Author Organization [place] Address [address] [place] [address] Care Team Providers Care Vp Publisher Development Name Role Phone Thang Diana [place] [facility] Unavailable [phone] Rain Galaviz PA-C Unavailable Tavia Wyatt MD Unavailable Unavailable Erica Farrell APRN PIT FURNACE MELTER Unavailable Rich Barrett MD Unavailable Neil Kent MD Unavailable Diana Desir Stanislav [facility] Unavailable [phone] Livan Sharif MD Unavailable Catherine Cm MD Unavailable + Valery Veronica PA-C Unavailable [phone] Brea Quinn DEVOPS ARCHITECT PIT FURNACE MELTER Unavailable [phone] Brea Quinn DEVOPS ARCHITECT PIT FURNACE MELTER Unavailable Jose Francisco Johnson MD Unavailable Alfonso Renteria MD Unavailable + [phone] Esha Grimm PA-C Primary Care Provider Radha Lomeli DEVOPS ARCHITECT PIT FURNACE MELTER Unavailable [phone] Jelena David OD Unavailable Esha Grimm PA-C Unavailable [phone] Valery VeronicaC Unavailable [phone] Rey Tay MD Unavailable ZepedaEvansximena [place] Unavailable Philip Dumont MD Unavailable [phone] Meredith CarreraC Unavailable Neil Kent MD Unavailable Juan Pablo Emmanuel MD Unavailable Reason for Visit * Reason Onset Date Comments Same Day Appointment 12/26/2023 sore throat , body aches, headaches couple days Encounter Details Date Type Department Care Team (Late st Contact Info) Description 12/26/2023 Telephone [facility] [address] [place] [address] Esha Grimm PA-C [address] [place] [address] Same Day Appointment (sore throat, [...] week 03/10/2023 How often do you attend [facility] or worship services? 1 to 4 times [...] Answer Date Recorded PHQ-2 Score 0 10/25/2023 [facility] [place] of Occupat ional Health - Occupational Stress [...] at this level? 30 min 03/10/2023 [place] Depression Scale Answer Date Recorded [place] Depression Score 5 01/14/2021 Last EPDS [...] we send this information to you in [facility] or would you prefer to receive [...] Visit [facility] [address] [facility] [address] [place] [phone] Ebony Cid, DEVOPS ARCHITECT [facility] 500 [place] [address] 03/27/2024 11:00 AM CDT Office Visit [facility] [address] [facility] [address] [place] [address] Jelena David, 3305 [facility] [place] [address] 03/29/2024 3:30 PM CDT Therapy Visit [facility] [address] [place] [address] 160 [place] [phone] Ingris Thompson, PT [facility] [address] [place] [address] 04/05/2024 2:10 PM CDT Therapy Visit [facility] [address] [place] [address] 160 [place] [address]65983 Ingris Thompson, PT [facility] [address] [place] [address] 730505 04/19/2024 2:45 PM CDT Office Visit [facility] 830 [place] [phone] Audrey Waite PA-C 420 [facility] [address], [facility] 603 [place], [place] 0[address]195 05/08/2024 1:30 PM CDT Office Visit [facility] [address] [place] [address] Lauren Claudio PA-C [address] [place] [address] Esha Grimm PA-C [address] [place] [address] 06/21/2024 2:00 PM BALANCE ASSEMBLER [facility] [address] [place] [address], [address] [place] [phone] [place] [address] [place] [place], [place] [address] Johnny Penn MD 6545 [place] [address] documented as of this encounter Visit Diagnoses Not on filedocumented in this encounter Additional Health Concerns Assessment Noted Time PHQ-9 Depression Total Score: 4 06/20/20 23 8:40 AM BALANCE ASSEMBLER documented as of this encounter Care Teams Vp Publisher Development Relationship Specialty Start Date End Date Esha Grimm PA-C [id number] [place] [address] PCP - General Family Medicine 05/04/23 Diana Desir, [facility] [address] [place] [address] Pharmacist Pharmacist 04/17/21 Rain Galaviz PA-C [address] [place] [address] [address] [place] [address] Physician Replenishment Buyer Dermatology 04/28/21 Tavia Wyatt MD [address] [place] [address] [address] [place] [address] Dermatology 07/14/21 Erica Farrell APRN PIT FURNACE MELTER [address] [place], [place] 166365 Nurse Practitioner Cardiovascular Disease 09/09/21 Rich Barrett MD [address] [place] [address] 531285 Physician Ophthalmology 01/21/22 Neil Kent MD [address] [place] [address] 271515 Dermatology 02/24/22 [facility] [address] [place] [address] 309366 Assigned [place] Pharmacist 04/07/22 Livan Sharif MD [address], [facility]00 [place], [place] 994035 Cardiovascular Disease 05/14/22 Catherine Cm MD [address] [facility]00 [place], [place] 350915 Cardiovascular Disease 07/21/22 Valery Veronica PA-C [address] [place] [address] Physician Replenishment Buyer Dermatology 07/21/22 Brea Quinn APRN PIT FURNACE MELTER 500 [place], [place] 271795 Nurse Practitioner Dermatology 09/21/22 Brea Quinn APRN PIT FURNACE MELTER 6401 [place] [address] Assigned Surgical Provider 10/09/22 [place] [address] [address] Assigned Musculoskeletal Provider 10/09/22 Alfonso Renteria MD [address] 179346 Assigned Neuroscience Provider 04/02/23 Radha Lomeli APRN PIT FURNACE MELTER [address] [address] Assigned Heart and Vascular Provider 05/28/23 Jelena David OD [address]305 [facility] [place] [address] Ophthalmology 06/15/23 Esha Grimm PA-C [address] [place] [address]88[address] Assigned PCP 07/16/23 Valery Veronica PA-C 909 [place], [place] 505865 Physician Replenishment Buyer Dermatology 09/19/23 Rey Tay MD 9 [place], [place] 556625 MD Gastroenterology 09/20/23 Rocky Zepeda DO [address] [place] [address] Physician Gastroenterology 09/20/23 Philip Dumont MD [address] [place] [address] 083005 Physician Ophthalmology 09/22/23 Meredith Carrera PA-C [address] [place] [address] Assigned Gastroenterology Provider 11/01/23 Neil Kent MD [address] 740740 Dermatology 11/02/23 [place] [address] [place], [place] 119917 Neurological Surgery 12/26/23 documented as of this encounter
--- OUTSIDE RECORDS SUMMARY | 2024-03-23 15:57 | XMS_ITS | Encounter Summary ---
Author Organization [place] Address [address] [place] [address] Care Team Providers Care Team Automobile Assembler Name Role Phone Thang Diana Mayers [facility] Unavailable Rain Galaviz PA-C Unavailable Tavia Wyatt MD Unavailable Unavailable Erica Farrell APRN BIODIESEL ENGINE SPECIALIST Unavailable Rich Barrett MD Unavailable Neil Ketn MD Unavailable Diana Desir Stanislav [facility] Unavailable [phone] Livan Sharif MD Unavailable Catherine Cm MD Unavailable + Valery Veronica PA-C Unavailable [phone] Brea Quinn NURSE CLINICIAN BIODIESEL ENGINE SPECIALIST Unavailable Brea Quinn NURSE CLINICIAN BIODIESEL ENGINE SPECIALIST Unavailable Jose Francisco Johnson MD Unavailable Alfonso Renteria MD Unavailable + [phone] Esha Grimm PA-C Primary Care Provider [phone] Radha Lomeli NURSE CLINICIAN BIODIESEL ENGINE SPECIALIST Unavailable [phone] Jelena David OD Unavailable Wicho Grimmlincoln Medina PAUcheC Unavailable [phone] Valery VeronicaC Unavailable [phone] Rey Tay MD Unavailable Rocky Zepeda DO Unavailable Philip Dumont MD Unavailable Meredith Carrera-C Unavailable [phone] Neil Kent MD Unavailable Reason for Visit * Diagnostic Imaging XR (Routine) - Pending Review Specialty Diagnoses / Procedures Referred By Qian mayers Referred To Contact Radiology. Diagnoses Chest tightness SOB (shortness of breath) Procedures XR Chest 2 Views Helen Cortez APRN BIODIESEL ENGINE SPECIALIST [address] [place] [address] Referral ID Status Reason Start Date Expiration Date V isits Requested Visits Authorized [id number] Pending Review 12/21/2023 12/20/2024 1 1 Encounter Details Date Type Department Care Team (Latest Contact Info) Description 12/21/2023 1:20 PM CDT Ancillary Procedure [facility] [address] [place] [phone] Helen Cortez APRN BIODIESEL ENGINE SPECIALIST [address] [place] [address] Chest tightness; SOB (shortness of breath) Social [...] How often do you attend chur or episcopalian services? 1 to 4 times [...] Date Recorded PHQ-2 Score 0 10/25/2023 [facility] - Occupational Stress Questionnaire [...] exercise at this level? 30 min 03/10/2023 Omega Depression Scale Answer Date Recorded Omega Depression Score 5 01/14/2021 Last EPDS Self [...] [facility] [address] [facility] [address] [place] [address] Ebony Cid, NURSE CLINICIAN BIODIESEL ENGINE SPECIALIST 500 [place] [address] 03/27/2024 11:00 AM CDT Office Visit [facility] [place] [address] [place] [address] [place] [address] [place] [address] [place] [address] 03/29/2024 3:30 PM CDT Therapy Visit [facility] [address] [facility] [address] [place] [phone] Ingris Thompson, PT [facility] 6 [facility] 106 [place], [place] [address]515 04/05/2024 2:10 PM CDT Therapy Visit [facility] [address]22 [facility] 160 [place] [phone] Ingris Thompson, PT [facility] [address] [place] [address] 106 [place] [address] 04/19/2024 2:45 PM CDT Office Visit [address] [phone] Audrey Waite PA-C 420 [facility] [address], [facility] 603 [place], [place] 875825 05/08/2024 1:30 PM CDT Office [facility] [address] [place] [phone] Lauren Claudio PA-C [address] [place], [place] [phone] Esha Grimm PA-C [address] [place] [address] 06/21/2024 2:00 PM CENTRIFUGAL WAX MOLDER Office Visit [facility] Neurology [facility] - [address], [address] [place] [address] [place] [address] [place] [address] Johnny Penn MD [address] [place], [place] 6[address] documented as of this encounter Procedures Procedure [...] unremarkable. CHIDI SCHWARTZ MD Helen Cortez APRN BIODIESEL ENGINE SPECIALIST IMG DIAGNOSTIC IMAGI NG ORDERABLES documented in this encounter Visit Diagnoses Diagnosis Chest tightness Other chest pain SOB (shortness of breath) Shortness of breath documented in this encounter Additional Health Concerns Assessment Noted Time PHQ-9 Depression Total Score: 4 06/20/20 23 8:40 AM CENTRIFUGAL WAX MOLDER documented as of this encounter Care Teams Team Automobile Assembler Relationship Specialty Start Date End Date Esha Grimm PA-C [address] [place] [address] PCP - General Family Medicine 05/04/23 Diana Desir, [facility] 3033 [place] [address] Pharmacist Pharmacist 04/17/21 Rain Galaviz PA-C [address] [place] [address] [address] [facility] [place] [address] Physician Malted Milk Mixer Dermatology 04/28/21 Tavia Wyatt MD [address] [place] [address] [address] [facility] [facility] [place] [address] Dermatology 07/14/21 Erica Farrell, ARLENE BIODIESEL ENGINE SPECIALIST [address] [place], [place] [address] Nurse Practitioner Cardiovascular Disease 09/09/21 Rich Barrett MD 516 [facility] 9A [place], [place] 07[address]85 Physician Ophthalmology 01/21/22 Neil Kent MD 500 [place], [place] 262915 Dermatology 02/24/22 Diana Desir, [facility] [address] [place] [address] Assigned MTM Pharmacist 04/07/22 Livan Sharif MD [address] [place] [address] Cardiovascular Disease 05/14/22 Catherine Cm MD 6[address] [facility] [address] [place] [address] Cardiovascular Disease 07/21/22 Valery Veronica, PA-C 909 [place] [address] Physician Malted Milk Mixer Dermatology 07/21/22 Brea Quinn APRN BIODIESEL ENGINE SPECIALIST [address] [place] [address] Nurse Practitioner Dermatology 09/21/22 Brea Quinn APRN BIODIESEL ENGINE SPECIALIST [address] [place] [address] Assigned Surgical Provider 10/09/22 [place] [address] [address] Assigned Musculoskeletal Provider 10/09/22 Alfonso Renteria MD [address] [facility] 200 [place], [place] 278596 Assigned Neuroscience Provider 04/02/23 Radha Lomeli APRN BIODIESEL ENGINE SPECIALIST [address] [place] [address] Assigned Heart and Vascular Provider 05/28/23 Jelena David OD 3305 [facility] [place] [address] MD Ophthalmology 06/15/23 Esha Grimm PA-C [address] [place] [address] Assigned PCP 07/16/23 Valery Veronica PA-C [address] [place] [address] Physician Malted Milk Mixer Dermatology 09/19/23 Rey Tay MD [address] [place] [address] Gastroenterology 09/20/23 Rocky Zepeda DO [address] [place] [address] Physician Gastroenterology 09/20/23 Philip Dumont MD [address] [place] [address] 875205 Physician Ophthalmology 09/22/23 Meredith Carrera PA-C [address] [place] [address] Assigned Gastroenterology Provider 11/01/23 Neil Kent MD [address] 733870 Dermatology 11/02/23 documented as of this encounter
--- OUTSIDE RECORDS SUMMARY | 2024-03-23 15:57 | XMS_ITS | Encounter Summary ---
Author Organization [place] Address [address] [place] [address] Care Team Providers Care Science Teacher Name Role Phone Thang Diana [place] [facility] Unavailable Rain Galaviz PA-C Unavailable [phone] Tavia Wyatt MD Unavailable Unavailable Erica Farrell APRN CYLINDER DYER Unavailable Rich Barrett MD Unavailable Neil Kent MD Unavailable Diana Desir Stanislav [facility] Unavailable [phone] Livan Sharif MD Unavailable Catherine Cm MD Unavailable + Valery Veronica PA-C Unavailable [phone] Brea Quinn BUSINESS APPLICATIONS SPECIALIST CYLINDER DYER Unavailable [phone] Brea Quinn BUSINESS APPLICATIONS SPECIALIST CYLINDER DYER Unavailable [phone] Jose Francisco Johnson MD Unavailable Alfonso Renteria MD Unavailable + [phone] Esha Grimm PA-C Primary Care Provider Radha Lomeli BUSINESS APPLICATIONS SPECIALIST CYLINDER DYER Unavailable [phone] Jelena David OD Unavailable Alfa Eshalincoln DOWC Unavailable [phone] Valery VeronicaC Unavailable [phone] Rey Tay MD Unavailable Rocky Zepeda Unavailable Philip Dumont MD Unavailable [phone] Meredith CarreraC Unavailable [phone] Neil Kent MD Unavailable Encounter Details Date [...] 10/25/2023 [facility] Occupat ional [facility] - Occupational [...] 03/26/2024 11:20 AM CDT Office [facility] Spine and Neurosurgery [address] [facility] [address] [place] [phone] Ebony Cid, BUSINESS APPLICATIONS SPECIALIST [facility] 500 [place], [place] 615165 03/27/2024 11:00 AM CDT Office Visit [facility] [place] [address] [facility] [address] [place] [phone] Jelena David, [address] [place] [address] [place] [address] 03/29/2024 3:30 PM CDT Therapy Visit [facility] [address] [place] [address] 160 [place] [phone] Ingris Thompson, PT [facility] [address] [place] [address] 04/05/2024 2:10 PM CDT Therapy Visit [facility] [address] [place] [address] [address] [place] [phone] Ingris Thompson, PT [facility] [address] [place] [address] 04/19/2024 2:45 PM CDT Office Visit [address] [phone] Audrey Waite PA-C [address], [facility] 603 [place], [place] 388145 05/08/2024 1:30 PM CDT Office Visit [facility] [address] [place] [address] Lauren Claudio PA-C [address] [place] [address] Esha Grimm PA-C [address] [place] [address] 06/21/2024 2:00 PM RECEIVABLE CLERK Office [facility] Neurology Clinics - [address], [address] [place] [address] [place] [address] [place] [address] Johnny Penn MD 6545 [place] [address] documented as of this encounter Visit Diagnoses Not on filedocumented in this encounter Additional Health Concerns Assessment Noted Time PHQ-9 Depression Total Score: 4 06/20/20 23 8:40 AM RECEIVABLE CLERK documented as of this encounter Care Teams Science Teacher Relationship Specialty Start Date End Date Esha Grimm PA-C [id number] [place] [address] PCP - General Family Medicine 05/04/23 Diana Desir, [facility] [address] [place] [address] Pharmacist Pharmacist 04/17/21 Rain Galaviz PA-C [address] [place] [address] [address] [place] [address] Physician Property Management Intern Dermatology 04/28/21 Tavia Wyatt MD [address] [place] [address] [address] [place] [address] Dermatology 07/14/21 Erica Farrell APRN CYLINDER DYER [address] [place] [address]15 Nurse Practitioner Cardiovascular Disease 09/09/21 Rich Barrett MD 516 [facility] 9A [place], [place] [address]115 Physician Ophthalmology 01/21/22 Neil Kent MD 500 [place], [place] 5[address]95 Dermatology 02/24/22 Diana Desir, [facility] [address] [place] [address] Assigned MTM Pharmacist 04/07/22 Livan Sharif MD [address] [place] [address] Cardiovascular Disease 05/14/22 Catherine Cm MD 6408 [facility] [address] [place] [address] Cardiovascular Disease 07/21/22 Valery Veronica PA-C 909 [place] [address] Physician Property Management Intern Dermatology 07/21/22 Brea Quinn APRN CYLINDER DYER [address] [place] [address] Nurse Practitioner Dermatology 09/21/22 Brea Quinn APRN CYLINDER DYER [address] [place] [address] Assigned Surgical Provider 10/09/22 [place] [address] [facility] 300 [place] [address] Assigned Musculoskeletal Provider 10/09/22 Alfonso Renteria MD 5775 [facility] 200 [place], [place] 693346 Assigned Neuroscience Provider 04/02/23 Radha Lomeli APRN CYLINDER DYER 6405 [facility] [address] [place] [address] Assigned Heart and Vascular Provider 05/28/23 Jelena David OD [address] [place] [address] Ophthalmology 06/15/23 Esah Grimm PA-C [address] [place] [address]-9169[address] Assigned PCP 07/16/23 Valery Veronica PA-C [address] [place] [address] Physician Property Management Intern Dermatology 09/19/23 Rey Tay MD [address] [place] [address] MD Gastroenterology 09/20/23 Rocky Zepeda DO [address] [place] [address] 631845 Physician Gastroenterology 09/20/23 Philip Dumont MD [address] [place] [address] 943105 Physician Ophthalmology 09/22/23 Meredith Carrera PA-C [address] [place] [address] 957245 Assigned Gastroenterology Provider 11/01/23 Neil Kent MD [address] 124620 Dermatology 11/02/23 documented as of this encounter
--- OUTSIDE RECORDS SUMMARY | 2024-03-23 15:57 | XMS_ITS | Encounter Summary ---
Author Organization [place] Address [address] [place] [address] Care Team Providers Care Analysis Intern Name Role Phone Thang Diana [place] [facility] Unavailable [phone] Rain Galaviz PA-C Unavailable Tavia Wyatt MD Unavailable Unavailable Erica Farrell APRN METAL FABRICATING SUPERVISOR Unavailable Rich Barrett MD Unavailable Neil Kent MD Unavailable Diana Desir Stanislav [facility] Unavailable [phone] Livan Sharif MD Unavailable Catherine Cm MD Unavailable + Valery Veronica PA-C Unavailable [phone] Brea Quinn VISITOR SERVICES ASSOCIATE METAL FABRICATING SUPERVISOR Unavailable Brea Quinn VISITOR SERVICES ASSOCIATE METAL FABRICATING SUPERVISOR Unavailable Jose Francisco Johnson MD Unavailable Alfonso Renteria MD Unavailable + [phone] Esha Grimm PA-C Primary Care Provider Radha Lomeli VISITOR SERVICES ASSOCIATE METAL FABRICATING SUPERVISOR Unavailable [phone] Jelena David OD Unavailable Jesus Grimmyllincoln Medina PA-C Unavailable [phone] Valery Veronica-C Unavailable Rey Tay MD Unavailable ZepedaEvansximena [place] Unavailable Philip Dumont MD Unavailable Meredith Carrera PA-C Unavailable Neil Kent MD Unavailable Juan Pablo Emmanuel MD Unavailable [phone] Reason for Visit * Reason Comments Sore Flu Symptoms Encounter Details Date Type Department Care Team (Late st Contact Info) Description 12/26/2023 9:32 AM CDT - 12/26/2023 10:06 AM CDT Emergency [facility] Emergency Dept [address] [place] [phone] Augustus Kim MD [facility] [address] [place], [place] [phone] Chest tightness Discharge Disposition: Home or Self [...] you attend [facility] or church services? 1 to 4 [...] Answer Date Recorded PHQ-2 Score 0 10/25/2023 [facility] Occupat ional Health - Occupational Stress [...] exercise at this level? 30 min 03/10/2023 [place] Depression Scale Answer Date Recorded [place] Depression Score 5 01/14/2021 Last EPDS Self [...] the Xpert Xpress CoV2/Flu/RSV Assay on the [employer] GeneXpert Instrument. This test should be ordered [...] management. This test was validated by the [facility]. These laboratories are certified under the ClinicalLaboratory Improvement Amendments of 1988 (CLIA-88) as qualified to perform high complexity laboratory testing. EKG 12 lead Status: None Result Value Ref Range Systolic Blood Pressure mmHg Diastolic Blood Pressure mmHg Ventricular Rate 65 BPM Atrial Rate 65 BPM WA Interval 148 ms QRS Duration 90 ms QT 382 ms QTc 397 ms P [place] 65 degrees R AXIS 69 degrees T [place] 60 degrees Interpretation ECG Sinus rhythm Normal ECG When compared with ECG of 07-SEP-2023 18:14, QT has shortened Unconfirmed report - interpretation of this ECG is computer generated - see medical record for final interpretation Confirmed by - EMERGENCY ROOM, PHYSICIAN ([id number]), newspaper or periodical editor Saleem Gomez ([id number]) on 12/26/2023 10:17:45AM Group A Streptococcus PCR Throat Swab Status: Normal Specimen: Throat; Swab Result Value Ref Range Group A strep by PCR Not Detected Not Detected Narrative The Xpert Xpress Strep A test, performed on the Circular?? [employer], is a rapid, qualitative in vitro [...] is negative. There is no evidence of CLIENT SUPPORT ANALYST, Jose De Jesus angina, or other concerning [...] [facility] [address] [facility] [address] [place] [address] Ebony Cid, VISITOR SERVICES ASSOCIATE [facility] 500 [place] [address] 03/27/2024 11:00 AM CDT [facility] [address] [facility] [address] [place] [phone] Jelena David, 3305 [facility] [place] [address] 03/29/2024 3:30 PM CDT Therapy Visit [facility] 65100 [facility] 160 [place] [phone] Ingris Thompson, PT [facility] 6 [facility] 106 [place] [address] 04/05/2024 2:10 PM CDT Therapy Visit [facility] [address] [place] [address] 160 [place] [phone] Ingris Thompson, PT [facility] [address] [place] [address] 106 [place] [address] 04/19/2024 2:45 PM CDT Office [facility] 830 [place] [phone] Audrey Waite PA-C 420 [facility] [address], [facility] 603 [place] [address] 05/08/2024 1:30 PM CDT Office Visit [facility] [address] [place] [phone] Lauren Claudio PA-C [address] [place], [place] [phone] Esha Grimm PA-C [address] [place] [phone] 06/21/2024 2:00 PM ASSEMBLY MACHINE TENDER Office Visit [facility] Neurology [facility] 65[address] [facility], [address] [place] [address] [place] [address] [address] [place] [address] Johnny Penn MD 4081 [place] [address] documented as of this encounter [...] Atrial Rate 65 BPM RADIOLOG Y RESULTS WA Interval 148 ms RADIOLOG Y RESULTS QRS Duration 90 ms RADIOLO GY RESULTS QT 382 ms RADIOLOGY RESULTS QTc 397 ms RADIOLOGY RESULTS P [place] 65 degrees RADIOLOGY RESULTS R AXIS 69 degrees RADIOLOGY RESULTS T [place] 60 degrees RADIOLOGY RESULTS Interpretation ECG Sinus rhythm Normal ECG When compared with ECG of 07-SEP-2023 18:14, QT has shortened Unconfirmed report - interpretation of this ECG is computer generated - see medical record for final interpretation Confirmed by - EMERGENCY ROOM, PHYSICIAN ([id number]), newspaper or periodical editor Saleem Gomez ([id number]) on 12/26/2023 10:17:45 AM RADIOLOGY RESULTS 12/26/2023 9:56 AM CDT 12/26/2023 10:17 AM CDT Augustus Kim MD ECG ORDERABLES Performing Organization Address City/[facility]/ZIP Co de Phone Number RADIOLOGY RESULTS * Group A Streptococcus PCR [...] Xpress Strep A test, performed on the Circular?? [employer], is a rapid, qualitative in vitro [...] LAB - MICRO GENER AL ORDERABLES LABORATORY [facility] [address] [facility] Lab (1st floor, no room number) [place] [address] * Symptomatic Influenza A/B, RSV, & [...] the Xpert Xpress CoV2/Flu/RSV Assay on the ciValueXpert Instrument. This test should be ordered for [...] management. This test was validated by the [facility]. These laboratories are certified under the Clinical Laboratory Improvement Amendments of 1988 (CLIA-88) as qualified to perform high complexity laboratory testing. Augustus Kim MD LAB - MICRO GENER AL ORDERABLES LABORATORY [facility] [address] [facility] Lab (1st floor, no room number) [place] [address], [facility] documented in this encounter Visit Diagnoses Diagnosis Chest tightness Other chest pain documented in this encounter Additional Health Concerns Infection Onset Date Last Indicated Resolved Time Rule Out COVID-19 12/26/2023 12/26/2023 12/26/2023 9:50 AM CDT Assessment Noted Time PHQ-9 Depression Total Score: 4 12/11/20 23 8:40 AM ASSEMBLY MACHINE TENDER documented as of this encounter Care Teams Analysis Intern Relationship Specialty Start Date End Date Esha Grimm PA-C [address] [place] [phone] PCP - General Family Medicine 05/04/23 Diana Desir, [facility] [address] [place] [address] Pharmacist Pharmacist 04/17/21 Rain Galaviz PA-C [address] [place] [address] [address] [place] [address] Physician Fence Installer Helper Dermatology 04/28/21 Tavia Wyatt MD [address] [place] [address] [place] [address] Dermatology 07/14/21 Erica Farrell APRN METAL FABRICATING SUPERVISOR 6405 [facility] [address] [place] [address] Nurse Practitioner Cardiovascular Disease 09/09/21 Rich Barrett MD 516 [facility] 9A [place], [place] [address] Physician Ophthalmology 01/21/22 Neil Kent MD 500 [place], [place] 391625 Dermatology 02/24/22 Diana Desir, [facility] [address] [place] [address] Assigned MTM Pharmacist 04/07/22 iLvan Sharif MD [address], [facility] [address] [place] [address] Cardiovascular Disease 05/14/22 Catherine Cm MD [address] [facility] [address] [place] 330935 Cardiovascular Disease 07/21/22 Valery Veronica PAUcheC [address] [place] [address] 184745 Physician Fence Installer Helper Dermatology 07/21/22 Brea Quinn APRN METAL FABRICATING SUPERVISOR 500 [place], [place] 638545 Nurse Practitioner Dermatology 09/21/22 Brea Quinn APRN METAL FABRICATING SUPERVISOR 6401 [facility] [place] 409772 Assigned Surgical Provider 10/09/22 [place] [address] [address] Assigned Musculoskeletal Provider 10/09/22 Alfonso Renteria MD 5775 [facility] 200 [place], [place] 393776 Assigned Neuroscience Provider 04/02/23 Radha Lomeli APRN METAL FABRICATING SUPERVISOR [address] [place] [address] Assigned Heart and Vascular Provider 05/28/23 Jelena David OD [address] [facility] [place] [address] Ophthalmology 06/15/23 Esha Grimm PA-C [address] [place] [address] Assigned PCP 07/16/23 Valery Veronica PA-C [address] [place] [address] Physician Fence Installer Helper Dermatology 09/19/23 Rey Tay MD [address] [place] [address] MD Gastroenterology 09/20/23 Rocky Zepeda DO [address] [place] [address] Physician Gastroenterology 09/20/23 Philip Dumont MD [address] [place] [address] Physician Ophthalmology 09/22/23 Meredith Carrera PA-C [address] [place] [address] Assigned Gastroenterology Provider 11/01/23 Neil Kent MD [address] 493060 Dermatology 11/02/23 [place] [address] [address] [facility] [place] [address] Neurological Surgery 12/26/23 documented as of this encounter
--- OUTSIDE RECORDS SUMMARY | 2024-03-23 15:58 | XMS_ITS | Encounter Summary ---
Author Organization [place] Address [address] [place] [address] Care Team Providers Care Escort Patients Name Role Phone Thang Diana [place] [facility] Unavailable [phone] Rain Galaviz PA-C Unavailable Tavia Wyatt MD Unavailable Unavailable Erica Farrell APRN SCALE TESTER Unavailable Rich Barrett MD Unavailable Neil Kent MD Unavailable Diana Desir Stanislav [facility] Unavailable [phone] Livan Sharif MD Unavailable Catherine Cm MD Unavailable + Valery Veronica PA-C Unavailable [phone] Brea Quinn BRANCHER SCALE TESTER Unavailable Brea Quinn BRANCHER SCALE TESTER Unavailable Jose Francisco Johnson MD Unavailable Alfonso Renteria MD Unavailable + [phone] Esha Grimm PA-C Primary Care Provider [phone] Radha Lomeli BRANCHER SCALE TESTER Unavailable [phone] FrankieJelena OD Unavailable Pao Joseph RN Unavailable Unavailable [facility] [place] PA-C Unavailable [phone] Valery Veronica PA-C Unavailable [phone] Rey Tay MD Unavailable Rocky Zepeda DO Unavailable Philip Dumont MD Unavailable [phone] Meredith Carrera PA-C Unavailable +[phone] Neil Kent MD Unavailable Juan Pablo Emmanuel MD Unavailable [phone] Audrey Waite PA-C Unavailable [phone] Encounter Details Date Type Department Care Team (Late st Contact Info) Description 10/26/2023 MyC Medical Advice [facility] [address] [address] [place] Social History Tobacco [...] Recorded PHQ-2 Score 0 10/25/2023 [facility] - Occupational Stress Questionnaire [...] exercise at this level? 30 min 03/10/2023 [place] Depression Scale Answer Date Recorded [place] Depression Score 5 01/14/2021 Last EPDS Self [...] Description 03/26/2024 11:20 AM CDT Office Visit [facility] [address] [facility] [address] [place] [address] Ebony Cid, [facility] 500 [place] [address] 03/27/2024 11:00 AM CDT Office Visit [facility] [place] [address] [facility] [address] [place] [phone] Jelena David, [address] [facility] [place] [address] 03/29/2024 3:30 PM CDT Therapy Visit [facility] Services [place] [address] [place] [address] [address] [place] [phone] Ingris Thompson, PT [facility] [address] [facility] 106 [place] [address] 04/05/2024 2:10 PM CDT Therapy Visit [facility] [place] [address] [facility] [address] [place] [address] Ingris Thompson, PT [facility] 516 [facility] 106 [place], [place] 96[address] 04/19/2024 2:45 PM CDT Office Visit [facility] 830 [place] [phone] Audrey Waite PA-C 420 [facility] [address], [facility] 603 [place], [place] 9[address]375 05/08/2024 1:30 PM CDT Office Visit [facility] [address] [place] [address] Lauren Claudio PA-C [address] [place], [place] [phone] Esha Grimm PA-C [address] [place] [address] 06/21/2024 2:00 PM PLATFORM STAPLER Office Visit [facility]rology [facility] - [place] [address] [place] [address], [address] [place] [address] [place] [address] [place] [address] Johnny Penn MD 6506 [place], [place] [id number] documented as of this encounter Visit Diagnoses Not on filedocumented in this encounter Additional Health Concerns Infection Onset Date Last Indicated Resolved Time Rule Out COVID-19 12/26/2023 12/26/2023 12/26/2023 9:50 AM CDT Assessment Noted Time PHQ-9 Depression Total Score: 4 06/20/20 23 8:40 AM PLATFORM STAPLER documented as of this encounter Care Teams Escort Patients Relationship Specialty Start Date End Date Esha Grimm PA-C [address] [place] [address] PCP - General Family Medicine 05/04/23 Diana Desir, [facility] [address] [place], [place] [address] Pharmacist Pharmacist 04/17/21 Rain Galaviz PA-C [address] [place] [address] [address] [place] [address] Physician Painter Aircraft Dermatology 04/28/21 Tavia Wyatt MD [address] [place] [address] DR [facility] [address] Dermatology 07/14/21 Erica Farrell APRN SCALE TESTER 6405 [facility] [address] [place] [address] Nurse Practitioner Cardiovascular Disease 09/09/21 Rich Barrett MD 516 [facility] 9A [place], [place] [address] Physician Ophthalmology 01/21/22 Neil Kent MD 500 [place], [place] 785745 Dermatology 02/24/22 [facility] 3033 [place] [address] Assigned MTM Pharmacist 04/07/22 Livan Sharif MD [address], [facility] [address] [place] [address] Cardiovascular Disease 05/14/22 Catherine Cm MD [address] [facility] [address] [place], [place] 541745 Cardiovascular Disease 07/21/22 Valery Veronica, PA-C [address] [place] [address] 347575 Physician Painter Aircraft Dermatology 07/21/22 Brea Quinn APRN SCALE TESTER 500 [place], [place] 480025 Nurse Practitioner Dermatology 09/21/22 Brea Quinn APRN SCALE TESTER 6401 [place] [address] Assigned Surgical Provider 10/09/22 [place] [address] [place] [facility] 300 [place] [address] Assigned Musculoskeletal Provider 10/09/22 Alfonso Renteria MD 5775 [facility] 200 [place] [address] Assigned Neuroscience Provider 04/02/23 Radha Lomeli APRN SCALE TESTER 6405 [facility] [address] [address] [place] [address] Assigned Heart and Vascular Provider 05/28/23 Jelena David OD [address] [place] [address] MD Ophthalmology 06/15/23 Pao Joseph, VJ Personal Advocate & Liaison (PAL) Nurse 08/01/23 11/07/23 Esha Grimm PA-C [address] [place] [phone] Assigned PCP 07/16/23 Valery Veronica PA-C [address] [place] [address] 124595 Physician Painter Aircraft Dermatology 09/19/23 Rey Tay MD [address] [place] [address] 874385 Gastroenterology 09/20/23 Rocky Zepeda DO [address] [place] [address] 539955 Physician Gastroenterology 09/20/23 Philip Dumont MD [address] [place] [address] Physician Ophthalmology 09/22/23 Meredith Carrera PA-C [address] [place] [address] Assigned Gastroenterology Provider 11/01/23 Neil Kent MD [address] [place] [address] Dermatology 11/02/23 [place] [address] [place] [address] [address] Neurological Surgery 12/26/23 Audrey Waite PA-C 500 [place] [address] Physician Painter Aircraft Dermatology 02/28/24 documented as of this encounter
--- OUTSIDE RECORDS SUMMARY | 2024-03-23 15:58 | XMS_ITS | Encounter Summary ---
Author Organization [place] Address [address] [place] [address] Care Team Providers Care Botany Professor Name Role Phone Thang Diana [place] [facility] Unavailable Rain Galaviz PA-C Unavailable Tavia Wyatt MD Unavailable Unavailable Erica Farrell APRN FIRE ALARM INSTALLER Unavailable Rich Barrett MD Unavailable Neil Kent MD Unavailable Diana Desir Stanislav [facility] Unavailable [phone] Livan Sharif MD Unavailable Catherine Cm MD Unavailable + Valery Veronica PA-C Unavailable [phone] Brea Quinn FREIGHT UNLOADER FIRE ALARM INSTALLER Unavailable Brea Quinn FREIGHT UNLOADER FIRE ALARM INSTALLER Unavailable Jose Francisco Johnson MD Unavailable Alfonso Renteria MD Unavailable + [phone] Esha Grimm PA-C Primary Care Provider Radha Lomeli FREIGHT UNLOADER FIRE ALARM INSTALLER Unavailable [phone] Jelena David OD Unavailable Esha Grimm PA-C Unavailable [phone] Valery Veronica PA-C Unavailable [phone] Rey Tay MD Unavailable Rocky Zepeda DO Unavailable Philip Dumont MD Unavailable [phone] Meredith Carrera PA-C Unavailable [phone] Neil Kent MD Unavailable Juan Pablo Emmanuel MD Unavailable [phone] Audrey Waite PA-C Unavailable [phone] Encounter Details Date Type Department Care Team (Late st Contact Info) Description 11/21/2023 MyC Medical Advice [facility] [address] [phone] Sofia Alcantar Social History Tobacco Use Types [...] Score 0 10/25/2023 [facility] - Occupational Stress Questionnaire Answer [...] exercise at this level? 30 min 03/10/2023 [place] Depression Scale Answer Date Recorded [place] Depression Score 5 01/14/2021 Last EPDS Self [...] Office Visit [facility]surgery [employer] [address] [place] [address] Ebony Cid, FREIGHT UNLOADER [facility] 500 [place] [address] 03/27/2024 11:00 AM CDT Office Visit [facility] [place] [address] [facility] [address] [place] [phone] Jelena David, 3305 [facility] [place] [address] 03/29/2024 3:30 PM CDT Therapy Visit [facility] Rehabilitation Services [place] [address] [place] [address] [address] [place] [phone] Ingris Thompson, PT [facility] 6 [facility] 106 [place] [address] 04/05/2024 2:10 PM CDT Therapy Visit [facility] [place] [address] [facility] [address] [place] [phone] Ingris Thompson, PT [facility] [address] [facility] [address] [facility] 106 [place] [address] 04/19/2024 2:45 PM CDT Office Visit [facility] 830 [place] [address] Audrey Waite PA-C [address], [facility] 603 [place], [place] [address] 05/08/2024 1:30 PM CDT Office Visit [facility] [address] [place] [address] Lauren Claudio PA-C [address] [place], [place] [phone] Esha Grimm PA-C [address] [place] [address] 06/21/2024 2:00 PM PIPE FITTER MARINE Office Visit [facility] Neurology [facility]ics - [place] [address] [place] [address], [address] [place] [address] [place] [address] [place], [place] [address] Johnny Penn MD 8439 [place] [address] documented as of this encounter Visit Diagnoses Not on filedocumented in this encounter Additional Health Concerns Infection Onset Date Last Indicated Resolved Time Rule Out COVID-19 12/26/2023 12/26/2023 12/26/2023 9:50 AM CDT Assessment Noted Time PHQ-9 Depression Total Score: 4 06/20/20 23 8:40 AM PIPE FITTER MARINE documented as of this encounter Care Teams Botany Professor Relationship Specialty Start Date End Date Esha Grimm PA-C [address] [place] [address] PCP - General Family Medicine 05/04/23 Diana Desir, [facility] [address] [place], [place] 221536 Pharmacist Pharmacist 04/17/21 Rain Galaviz PA-C [address] [place] [address] [address] [place] [address] Physician Data Management Analyst Dermatology 04/28/21 Tavia Wyatt MD [address] [place] [address] [address] [place] [facility] [place] [address] Dermatology 07/14/21 Erica Farrell APRN FIRE ALARM INSTALLER 6405 [facility] [address] [place] [address] Nurse Practitioner Cardiovascular Disease 09/09/21 Rich Barrett MD 516 [facility], [facility] 9A [place], [place] 8743[address] Physician Ophthalmology 01/21/22 Neil Kent MD 500 [place], [place] 522665 Dermatology 02/24/22 Diana Desir, [facility] 3033 [place] [address] Assigned MTM Pharmacist 04/07/22 Livan Sharif MD [address] [facility] [address] [place] [address] Cardiovascular Disease 05/14/22 Catherine Cm MD [address] [place] 7187000 [place] [address] Cardiovascular Disease 07/21/22 Valery Veronica, PAUcheC [address] [place] [address] Physician Data Management Analyst Dermatology 07/21/22 Brea Quinn APRN FIRE ALARM INSTALLER [address] [place] [address] Nurse Practitioner Dermatology 09/21/22 Brea Quinn APRN FIRE ALARM INSTALLER [address] [place] [address] Assigned Surgical Provider 10/09/22 [place] [address] [address] Assigned Musculoskeletal Provider 10/09/22 Alfonso Renteria MD 5775 [facility] 200 [place] [address] Assigned Neuroscience Provider 04/02/23 Radha Lomeli APRN FIRE ALARM INSTALLER [address] [place] [address] Assigned Heart and Vascular Provider 05/28/23 Jelena David OD [address] [facility] [address] MD Ophthalmology 06/15/23 Esha Grimm PA-C [address] [place] [address] Assigned PCP 07/16/23 Valery Veronica PA-C [address] [place] [address] 789685 Physician Data Management Analyst Dermatology 09/19/23 Rey Tay MD [address] [place] [address] MD Gastroenterology 09/20/23 Rocky Zepeda DO [address] [place] [address] 188635 Physician Gastroenterology 09/20/23 Philip Dumont MD [address] [place] [address] 703535 Physician Ophthalmology 09/22/23 Meredith Carrera PA-C [address] [place] [address] 121625 Assigned Gastroenterology Provider 11/01/23 Neil Kent MD [address] 904500 Dermatology 11/02/23 [place] [address] [place] [address] [address] Neurological Surgery 12/26/23 Audrey Waite PA-C 500 [place], [place] 025435 Physician Data Management Analyst Dermatology 02/28/24 documented as of this encounter
--- OUTSIDE RECORDS SUMMARY | 2024-03-23 15:58 | XMS_ITS | Encounter Summary ---
Author Organization [place] Address [address] [place] [address] Care Team Providers Care Sweater Designer Name Role Phone Thang Diana [place] [facility] Unavailable [phone] Rain Galaviz PA-C Unavailable Tavia Wyatt MD Unavailable Unavailable Erica Farrell APRN BOOK SEWER Unavailable Rich Barrett MD Unavailable Neil Kent MD Unavailable Diana Desir Stanislav [facility] Unavailable [phone] Livan Sharif MD Unavailable Catherine Cm MD Unavailable + Valery Veronica PA-C Unavailable [phone] Brea Quinn COMMERCIAL MAKEUP ARTIST BOOK SEWER Unavailable [phone] Brea Quinn COMMERCIAL MAKEUP ARTIST BOOK SEWER Unavailable Jose Francisco Johnson MD Unavailable Alfonso Renteria MD Unavailable + [phone] Esha Grimm PA-C Primary Care Provider Radha Lomeli COMMERCIAL MAKEUP ARTIST BOOK SEWER Unavailable [phone] Jelena David OD Unavailable Pao Joseph RN Unavailable Unavailable Esha Grimm Adam PA-C Unavailable [phone] Valery Veronica PA-C Unavailable [phone] Rey Tay MD Unavailable Rocky Zepeda DO Unavailable Philip Dumont MD Unavailable [phone] Meredith Carrera PA-C Unavailable [phone] Neil Kent MD Unavailable Juan Pablo Emmanuel MD Unavailable [phone] Audrey Waite PA-C Unavailable [phone] Encounter Details Date Type Department Care Team (Late st Contact Info) Description 09/20/2023 MyC Medical Advice [facility] [address] [address] Jeffery Vieira, RN Social History [...] Answer Date Recorded PHQ-2 Score 0 06/20/2023 [facility] - Occupational Stress [...] exercise at this level? 30 min 03/10/2023 [place] Depression Scale Answer Date Recorded [place] Depression Score 5 01/14/2021 Last EPDS Self [...] [facility] [address] [facility] [address] [place] [phone] Ebony Cid, [facility] 500 [place] [address] 03/27/2024 11:00 AM CDT Office Visit [facility] [place] [address] [facility] [address] [place] [phone] Jelena David, SONJA 3305 [facility] [place] [address] 03/29/2024 3:30 PM CDT Therapy Visit [facility] Services [place] [address] [place] [address] [address] [place] [phone] Ingris Thompson, PT [facility] 516 [facility] 106 [place] [address] 04/05/2024 2:10 PM CDT Therapy Visit [facility] [place] [address] [facility] [address] [place] [address] Ingris Thompson, PT [facility] 516 [facility] 106 [place], [place] [address] 04/19/2024 2:45 PM CDT Office Visit [facility] 830 [place] [phone] Audrey Waite PA-C 420 [facility] [address], [facility] 603 [place], [place] 686975 05/08/2024 1:30 PM CDT Office Visit [facility] [address] [place] [address] Lauren Claudio PA-C [address] [place] [address] Esha Grimm PA-C [address] [place] [address] 06/21/2024 2:00 PM LEATHER CARTRIDGE BELT MAKER Office Visit [facility] Neurology Clinics - [address], [address] [place] [address] [place] [address] [place] [address] Johnny Penn MD 6590 [place], [place] [address] documented as of this encounter Visit Diagnoses Not on filedocumented in this encounter Additional Health Concerns Infection Onset Date Last Indicated Resolved Time Rule Out COVID-19 12/26/2023 12/26/2023 12/26/2023 9:50 AM CDT Assessment Noted Time PHQ-9 Depression Total Score: 4 06/20/20 23 8:40 AM LEATHER CARTRIDGE BELT MAKER documented as of this encounter Care Teams Sweater Designer Relationship Specialty Start Date End Date Esha Grimm PA-C [address] [place] [address] PCP - General Family Medicine 05/04/23 Diana Desir, [facility] [address] [place] [address] Pharmacist Pharmacist 04/17/21 Rain Galaviz PA-C [address] [place] [address] [address] [place] [address] Physician Nursing Home Assistant Dermatology 04/28/21 Tavia Wyatt MD [address] [place] [address] [place] [address] Dermatology 07/14/21 Erica Farrell APRN BOOK SEWER 6405 [facility] [address] [place] [address] Nurse Practitioner Cardiovascular Disease 09/09/21 Rich Barrett MD 516 [facility] 9A [place], [place] 484[address] Physician Ophthalmology 01/21/22 Neil Kent MD 500 [place], [place] 96[address]95 Dermatology 02/24/22 Diana Desir, [facility] 3033 [place] [address] Assigned MTM Pharmacist 04/07/22 Livan Sharif MD [address], [facility] [address] [place] [address] Cardiovascular Disease 05/14/22 Catherine Cm MD [address] [facility] [address] [place], [place] 9486[address] Cardiovascular Disease 07/21/22 Valery Veronica, PAUcheC 909 [place], [place] 658495 Physician Nursing Home Assistant Dermatology 07/21/22 Brea Quinn APRN BOOK SEWER 500 [place], [place] 794315 Nurse Practitioner Dermatology 09/21/22 Brea Quinn APRN BOOK SEWER 6401 [place] [address] Assigned Surgical Provider 10/09/22 [place] [address] [place] [facility] 300 [place] [address] Assigned Musculoskeletal Provider 10/09/22 Alfonso Renteria MD [address] [facility] 200 [place] [address] Assigned Neuroscience Provider 04/02/23 Radha Lomeli APRN BOOK SEWER [address] [place] [address] Assigned Heart and Vascular Provider 05/28/23 Jelena David OD [address] [facility] [place] [address] MD Ophthalmology 06/15/23 Pao Joseph, VJ Personal Advocate & Liaison (PAL) Nurse 08/01/23 11/07/23 Esha Grimm PA-C [address] [place] [phone] Assigned PCP 07/16/23 Valery Veronica PA-C [address] [place] [address] 222275 Physician Nursing Home Assistant Dermatology 09/19/23 Rey Tay MD [address] [place] [address] 789455 Gastroenterology 09/20/23 Rocky Zepeda DO [address] [place] [address] 731425 Physician Gastroenterology 09/20/23 Philip Dumont MD [address] [place] [address] 214895 Physician Ophthalmology 09/22/23 Meredith Carrera PA-C [address] [place] [address] Assigned Gastroenterology Provider 11/01/23 Neil Kent MD [address] [address] Dermatology 11/02/23 [place] [address] [place] [address] [address] Neurological Surgery 12/26/23 Audrey Waite, PAUcheC 500 [place] [address] Physician Nursing Home Assistant Dermatology 02/28/24 documented as of this encounter
--- OUTSIDE RECORDS SUMMARY | 2024-03-23 15:58 | XMS_ITS | Encounter Summary ---
Author Organization [facility] Address [address] [place] [address] Care Team Providers Care Dental Hygiene Teacher Name Role Phone Thang Diana [place] [facility] Unavailable Rain Galaviz PA-C Unavailable Tavia Wyatt MD Unavailable Unavailable Erica Farrell APRN DIVIDING MACHINE OPERATOR HELPER Unavailable Rich Barrett MD Unavailable Neil Kent MD Unavailable Diana Desir Stanislav [facility] Unavailable [phone] Livan Sharif MD Unavailable Catherine Cm MD Unavailable + Valery Veronica PA-C Unavailable [phone] Brea Quinn ENGINEERING PROGRAMMER DIVIDING MACHINE OPERATOR HELPER Unavailable Brea Quinn ENGINEERING PROGRAMMER DIVIDING MACHINE OPERATOR HELPER Unavailable [phone] Jose Francisco Johnson MD Unavailable Alfonso Renteria MD Unavailable + [phone] Esha Grimm PA-C Primary Care Provider [phone] Radha Lomeli ENGINEERING PROGRAMMER DIVIDING MACHINE OPERATOR HELPER Unavailable +[phone] FrankieJelenae OD Unavailable Pao Joseph RN Unavailable Unavailable [facility] [place] PA-C Unavailable [phone] Valery Veronica PA-C Unavailable [phone] Rey Tay MD Unavailable Rocky Zepeda DO Unavailable Philip Dumont MD Unavailable [phone] Meredith Carrera PA-C Unavailable [phone] Neil Kent MD Unavailable Juan Pablo Emmanuel MD Unavailable [phone] Audrey Waite PA-C Unavailable [phone] Encounter Details Date Type Department Care Team (Late st Contact Info) Description 09/08/2023 MyC Medical Advice [facility] G[facility]ology [facility] [address] [address] Mary Kelsey Social History Tobacco [...] Answer Date Recorded PHQ-2 Score 0 06/20/2023 [facility] - Occupational Stress Questionnaire Answer Date [...] exercise at this level? 30 min 03/10/2023 Hobgood Depression Scale Answer Date Recorded Hobgood Depression Score 5 01/14/2021 Last EPDS Self [...] Description 03/26/2024 11:20 AM CDT Office Visit [facility] Spine and Neurosurgery [address] [facility] [address] [place] [address] Ebony Cid, [facility] 500 [place] [address] 03/27/2024 11:00 AM CDT Office Visit [facility] [place] [address] [facility] [address] [place] [phone] Jelena David, 3305 [facility] [place] [address] 03/29/2024 3:30 PM CDT Therapy Visit [facility] Rehabilitation Services [place] [address] [place] [address] [address] [place] [phone] Ingris Thompson, PT [facility] 516 [facility] 106 [place] [address] 04/05/2024 2:10 PM CDT Therapy Visit [facility] [place] [address] [facility] [address] [place] [address] Ingris Thompson, PT [facility] 516 [facility] 106 [place], [place] 26[address] 04/19/2024 2:45 PM CDT Office Visit [facility] 830 [place] [phone] Audrey Waite PA-C 420 [facility] [address], [facility] 603 [place], [place] 06[address] 05/08/2024 1:30 PM CDT Office [facility] [address] [place] [address] Lauren Claudio PA-C [address] [place], [place] [phone] Esha Grimm PA-C [address] [place] [address] 06/21/2024 2:00 PM SHIPPING CLERK CRATING Office Visit [facility] Neurology Clinics - [place] [address] [place] [address], [address] [place] [phone] [place] [address] [place] [address] Johnny Penn MD 4959 [place], [place] [phone] documented as of this encounter Visit Diagnoses Not on filedocumented in this encounter Additional Health Concerns Infection Onset Date Last Indicated Resolved Time Rule Out COVID-19 12/26/2023 12/26/2023 12/26/2023 9:50 AM CDT Assessment Noted Time PHQ-9 Depression Total Score: 4 06/20/20 23 8:40 AM SHIPPING CLERK CRATING documented as of this encounter Care Teams Dental Hygiene Teacher Relationship Specialty Start Date End Date Esha Grimm PA-C [address] [place] [address] PCP - General Family Medicine 05/04/23 Diana Desir, [facility] [address] [place] [address] Pharmacist Pharmacist 04/17/21 Rain Galaviz PA-C [address] [place] [address] [address] [place] [address] Physician Financial Compliance Officer Dermatology 04/28/21 Tavia Wyatt MD [address] [place] [address] [address] [facility] [place] [address] Dermatology 07/14/21 Erica Farrell APRN DIVIDING MACHINE OPERATOR HELPER 6405 [facility] [address] [place] [address] Nurse Practitioner Cardiovascular Disease 09/09/21 Rich Barrett MD 516 [facility] 9A [place], [place] 1464[address] Physician Ophthalmology 01/21/22 Neil Kent MD 500 [place], [place] 914325 Dermatology 02/24/22 Diana Desir, [facility] 3033 [place] [address] Assigned MTM Pharmacist 04/07/22 Livan Sharif MD [address] [facility] [address] [place] [address] Cardiovascular Disease 05/14/22 Catherine Cm MD [address] [facility] [address] [place], [place] 339605 Cardiovascular Disease 07/21/22 Valery Veronica, PAUcheC 909 [place], [place] 739825 Physician Financial Compliance Officer Dermatology 07/21/22 Brea Quinn APRN DIVIDING MACHINE OPERATOR HELPER 500 [place], [place] 230415 Nurse Practitioner Dermatology 09/21/22 Brea Quinn APRN DIVIDING MACHINE OPERATOR HELPER 6401 [place] [address] Assigned Surgical Provider 10/09/22 [place] [address] [facility] 300 [place] [address] Assigned Musculoskeletal Provider 10/09/22 Alfonso Renteria MD 5775 [facility] 200 [place] [address] Assigned Neuroscience Provider 04/02/23 Radha Lomeli APRN DIVIDING MACHINE OPERATOR HELPER [address] [place] [address] Assigned Heart and Vascular Provider 05/28/23 Jelena David OD [address] [facility] [place] [address] MD Ophthalmology 06/15/23 Pao Joseph, VJ Personal Advocate & Liaison (PAL) Nurse 08/01/23 11/07/23 Esha Grimm PA-C [address] [place] [address] Assigned PCP 07/16/23 Valery Veronica PA-C [address] [place] [address] 031905 Physician Financial Compliance Officer Dermatology 09/19/23 Rey Tay MD [address] [place] [address] 760855 Gastroenterology 09/20/23 Rocky Zepeda DO [address] [place] [address] 673035 Physician Gastroenterology 09/20/23 Philip Dumont MD [address] [place] [address] Physician Ophthalmology 09/22/23 Meredith Carrera PA-C [address] [place] [address] Assigned Gastroenterology Provider 11/01/23 Neil Kent MD [address] [address] Dermatology 11/02/23 [place] [address] [address] Neurological Surgery 12/26/23 Audrey Waite PA-C 500 [place] [address] Physician Financial Compliance Officer Dermatology 02/28/24 documented as of this encounter
--- OUTSIDE RECORDS SUMMARY | 2024-03-23 15:58 | XMS_ITS | Encounter Summary ---
Author Organization [facility] Address [address] [place] [address] Care Team Providers Care Corporate Tutor Name Role Phone Thang Diana [place] [facility] Unavailable Rain Galaviz PA-C Unavailable [phone] Tavia Wyatt MD Unavailable Unavailable Erica Farrell APRN TRIMMER SORTER Unavailable Rich Barrett MD Unavailable Neil Kent MD Unavailable Diana Desir Stanislav [facility] Unavailable [phone] Livan Sharif MD Unavailable Catherine Cm MD Unavailable + Valery Veronica PA-C Unavailable [phone] Brea Quinn CHEMICAL TESTER TRIMMER SORTER Unavailable Brea Quinn CHEMICAL TESTER TRIMMER SORTER Unavailable Jose Francisco Johnson MD Unavailable Alfonso Renteria MD Unavailable + [phone] Esha Grimm PA-C Primary Care Provider Radha Lomeli CHEMICAL TESTER TRIMMER SORTER Unavailable [phone] FrankieJelenae OD Unavailable Pao Joseph RN Unavailable Unavailable [facility] [place] PA-C Unavailable Valery Veronica PA-C Unavailable [phone] Rey Tay MD Unavailable Rocky Zepeda DO Unavailable Philip Dumont MD Unavailable [phone] Meredith Carrera PA-C Unavailable [phone] Neil Kent MD Unavailable Juan Pablo Emmanuel MD Unavailable [phone] Audrey Waite PA-C Unavailable [phone] Encounter Details Date Type Department Care Team (Late st Contact Info) Description 10/24/[address] [facility] Gastroenterology Clinic [address] [address] Kenneth Denson Social History Tobacco [...] Recorded PHQ-2 Score 0 10/25/2023 [facility] - Occupational [...] exercise at this level? 30 min 03/10/2023 [place] Depression Scale Answer Date Recorded [place] Depression Score 5 01/14/2021 Last EPDS Self [...] 11:20 AM CDT Office Visit [facility] Spine and Neurosurgery [address] [facility] [address] [place] [phone] Ebony Cid, [facility] 500 [place] [address] 03/27/2024 11:00 AM CDT Office Visit [facility] Clinic [place] [address] [facility] [address] [place] [phone] Jelena David, SONJA 3305 [facility] [place] [address] 03/29/2024 3:30 PM CDT Therapy Visit [facility] Rehabilitation Services [place] [address] [place] [address] [address] [place] [phone] Ingris Thompson, PT [facility] 516 [facility] 106 [place] [address] 04/05/2024 2:10 PM CDT Therapy Visit [facility] Rehabilitation Services [place] [address] [facility] [address] [place] [address] Ingris Thompson, PT [facility] 516 [facility] 106 [place], [place] 467535 04/19/2024 2:45 PM CDT Office Visit [facility] 830 [place] [phone] Audrey Waite PA-C 420 [facility] [address], [facility] 603 [place], [place] 7699[address] 05/08/2024 1:30 PM CDT Office Visit [facility] [address] [place] [address] Lauren Claudio PA-C [address] [place], [place] [phone] Esha Grimm PA-C [address] [place] [address] 06/21/2024 2:00 PM PLISSE MACHINE OPERATOR HELPER Office Visit [facility] Neurology Clinics - [address], [address] [place] [address] [place] [address] [place] [address] Johnny Penn MD 6596 [place], [place] [phone] documented as of this encounter Visit Diagnoses Not on filedocumented in this encounter Additional Health Concerns Infection Onset Date Last Indicated Resolved Time Rule Out COVID-19 12/26/2023 12/26/2023 12/26/2023 9:50 AM CDT Assessment Noted Time PHQ-9 Depression Total Score: 4 06/20/20 23 8:40 AM PLISSE MACHINE OPERATOR HELPER documented as of this encounter Care Teams Corporate Tutor Relationship Specialty Start Date End Date Esha Grimm PA-C [address] [facility] [place] [address] PCP - General Family Medicine 05/04/23 Diana Desir, [facility] [address] [place], [place] [address] Pharmacist Pharmacist 04/17/21 Rain Galaviz PA-C [address] [place] [address] [address] [place] [address] Physician Wood Fence Erector Dermatology 04/28/21 Tavia Wyatt MD [address] [place] [address] DR [facility] [place] [address] Dermatology 07/14/21 Erica Farrell APRN TRIMMER SORTER 6405 [facility] [address] [place] [address] Nurse Practitioner Cardiovascular Disease 09/09/21 Rich Barrett MD 516 [facility] 9A [place], [place] 194155 Physician Ophthalmology 01/21/22 Neil Kent MD 500 [place], [place] 463445 Dermatology 02/24/22 Diana Desir, [facility] 3033 [place] [address] Assigned MTM Pharmacist 04/07/22 Livan Sharif MD [address], [facility] [address] [place] [address] Cardiovascular Disease 05/14/22 Catherine Cm MD [address] [facility] [address] [place], [place] [address] Cardiovascular Disease 07/21/22 Valery Veronica, PA-C 909 [place] [address] Physician Wood Fence Erector Dermatology 07/21/22 Brea Quinn APRN TRIMMER SORTER 500 [place], [place] 742725 Nurse Practitioner Dermatology 09/21/22 Brea Quinn APRN TRIMMER SORTER 6401 [place] [address] Assigned Surgical Provider 10/09/22 [place] [address] [address] [facility] 300 [place] [address] Assigned Musculoskeletal Provider 10/09/22 Alfonso Renteria MD 5775 [facility] 200 [place] [address] Assigned Neuroscience Provider 04/02/23 Radha Lomeli APRN TRIMMER SORTER 6405 [facility] [address] [address] [place] [address] Assigned Heart and Vascular Provider 05/28/23 Jelena David OD 3305 [facility] [place] [address] MD Ophthalmology 06/15/23 Pao Joseph, VJ Personal Advocate & Liaison (PAL) Nurse 08/01/23 11/07/23 Esha Grimm PA-C [address] [place] [phone] Assigned PCP 07/16/23 Valery Veronica PA-C [address] [place] [address] 334685 Physician Wood Fence Erector Dermatology 09/19/23 Rey Tay MD [address] [place] [address] 249935 Gastroenterology 09/20/23 Rocky Zepeda DO [address] [place] [address] 781835 Physician Gastroenterology 09/20/23 Philip Dumont MD [address] [place] [address] Physician Ophthalmology 09/22/23 Meredith Carrera PA-C [address] [place] [address] Assigned Gastroenterology Provider 11/01/23 Neil Kent MD [address] [place] [address] Dermatology 11/02/23 [place] [address] [place] [address] Neurological Surgery 12/26/23 Audrey Waite PA-C 500 [place] [address] Physician Wood Fence Erector Dermatology 02/28/24 documented as of this encounter
--- OUTSIDE RECORDS SUMMARY | 2024-03-23 15:58 | XMS_ITS | Encounter Summary ---
Author Organization [facility] Address [address] [place] [address] Care Team Providers Care Invertebrate Paleontologist Name Role Phone Thang Diana [place] [facility] Unavailable [phone] Rain Galaviz PA-C Unavailable Tavia Wyatt MD Unavailable Unavailable Erica Farrell APRN DIAMOND DIE MAKER Unavailable Rich Barrett MD Unavailable Neil Kent MD Unavailable Diana Desir Stanislav [facility] Unavailable [phone] Livan Sharif MD Unavailable Catherine Cm MD Unavailable + Valery Veronica PA-C Unavailable [phone] Brea Quinn SALES AND OPERATIONS TRAINEE DIAMOND DIE MAKER Unavailable Brea Quinn SALES AND OPERATIONS TRAINEE DIAMOND DIE MAKER Unavailable Jose Francisco Johnson MD Unavailable Alfonso Renteria MD Unavailable + [phone] Esha Grimm PA-C Primary Care Provider Radha Lomeli SALES AND OPERATIONS TRAINEE DIAMOND DIE MAKER Unavailable [phone] FrankieJelena OD Unavailable Pao Joseph RN Unavailable Unavailable [facility] [place] PA-C Unavailable [phone] Valery Veronica PA-C Unavailable Rey Tay MD Unavailable Rocky Zepeda DO Unavailable Philip Dumont MD Unavailable [phone] Meredith Carrera PA-C Unavailable Neil Kent MD Unavailable Juan Pablo Emmanuel MD Unavailable [phone] Audrey Waite PA-C Unavailable [phone] Encounter Details Date Type Department Care Team (Late st Contact Info) Description 10/25/2023 MyC Medical Advice [facility] Gastroenterology Clinic [address] [address] Nelly [place], RD 909 [place] [address] Social History Tobacco Use Types [...] PHQ-2 Score 0 10/25/2023 [facility] - Occupational [...] exercise at this level? 30 min 03/10/2023 Craig Depression Scale Answer Date Recorded Craig Depression Score 5 01/14/2021 Last EPDS Self [...] Visit [facility] Spine and Neurosurgery [address] [place] [address] [address] [place] [address] Ebony Cid APRN DIAMOND DIE MAKER 500 [place] [address] 03/27/2024 11:00 AM CDT Office Visit [facility] Clinic [place] 3305 [facility] [address] [place] [phone] Jelena David, SONJA 3305 [facility] [place] [address] 03/29/2024 3:30 PM CDT Therapy Visit [facility] Rehabilitation Services [address] [place] [address] Ingris Thompson, PT [facility] 516 [facility] 106 [place], [place] [address]155 04/05/2024 2:10 PM CDT Therapy Visit [facility] Rehabilitation Services [place] [address] [facility] [address] [place] [address] Ingris Thompson, PT [facility] 516 [facility] 106 [place], [place] 8[address]275 04/19/2024 2:45 PM CDT Office Visit [address] [phone] Audrey Waite PA-C 420 [facility] [address]385, [facility] 603 [place], [place] 965535 05/08/2024 1:30 PM CDT Office Visit [facility] [address] [place] [phone] Lauren Claudio PA-C [address] [place], [place] [phone] Esha Grimm PA-C [address] [place] [address] 06/21/2024 2:00 PM RESIDENT DOCTOR Office Visit [facility] Neurology Clinics - [address], [address] [place] [address] [place] [address] [place] [address] Johnny Penn MD 0641 [place] [address] documented as of this encounter Visit Diagnoses Not on filedocumented in this encounter Additional Health Concerns Infection Onset Date Last Indicated Resolved Time Rule Out COVID-19 12/26/2023 12/26/2023 12/26/2023 9:50 AM CDT Assessment Noted Time PHQ-9 Depression Total Score: 4 06/20/20 23 8:40 AM RESIDENT DOCTOR documented as of this encounter Care Teams Invertebrate Paleontologist Relationship Specialty Start Date End Date Esha Grimm PA-C [address] [place] [address] PCP - General Family Medicine 05/04/23 Diana Desir, [facility] [address] [place], [place] 620[address] Pharmacist Pharmacist 04/17/21 Rain Galaviz PA-C [address] [place] [address] [address] [facility] [place] [address] Physician Bore Mill Operator For Plastic Dermatology 04/28/21 Tavia Wyatt MD [address] [place] [address] [address] [place] [address] Dermatology 07/14/21 Erica Farrell APRN DIAMOND DIE MAKER 6405 [facility] [address]200 [place], [place] 2036[address] Nurse Practitioner Cardiovascular Disease 09/09/21 Rich Barrett MD [address] 963905 Physician Ophthalmology 01/21/22 Neil Kent MD 500 [place] [address] Dermatology 02/24/22 Diana Desir, [facility] 3033 [place], [place] 087526 Assigned [place] Pharmacist 04/07/22 Livan Sharif MD [address] [facility] [address]200 [place], [place] 542255 Cardiovascular Disease 05/14/22 Catherine Cm MD [address] [facility]00 [place], [place] 120365 Cardiovascular Disease 07/21/22 Valery Veronica, PA-C [address] [place] [address] 8784[address] Physician Bore Mill Operator For Plastic Dermatology 07/21/22 Brea Quinn APRN DIAMOND DIE MAKER 500 [place], [place] 114705 Nurse Practitioner Dermatology 09/21/22 Brea Quinn APRN DIAMOND DIE MAKER [address] [place] [address] 543432 Assigned Surgical Provider 10/09/22 [place] [address] 252887 Assigned Musculoskeletal Provider 10/09/22 Alfonso Renteria MD 5775 [facility] 200 [place], [place] 553636 Assigned Neuroscience Provider 04/02/23 Radha Lomeli APRN DIAMOND DIE MAKER 6405 [facility] [address] [place] [address] Assigned Heart and Vascular Provider 05/28/23 Jelena David OD [address] [facility] [place] [address] MD Ophthalmology 06/15/23 Pao Joseph, VJ Personal Advocate & Liaison (PAL) Nurse 08/01/23 11/07/23 Esha Grimm PA-C [address] [place] [address]96[address] Assigned PCP 07/16/23 Valery Veronica PA-C [address] [place] [address] 324245 Physician Bore Mill Operator For Plastic Dermatology 09/19/23 Rey Tay MD [address] [place] [address] 796505 MD Gastroenterology 09/20/23 Rocky Zepeda DO [address] [place] [address] 460935 Physician Gastroenterology 09/20/23 Philip Dumont MD [address] [place] [address] 792095 Physician Ophthalmology 09/22/23 Meredith Carrera PA-C [address] [place] [address] 533215 Assigned Gastroenterology Provider 11/01/23 Neil Kent MD [address] [address] Dermatology 11/02/23 [place] [address] [address] Neurological Surgery 12/26/23 Audrey Waite, PAUcheC 500 [place], [place] 015085 Physician Bore Mill Operator For Plastic Dermatology 02/28/24 documented as of this encounter
--- OUTSIDE RECORDS SUMMARY | 2024-03-23 15:58 | XMS_ITS | Encounter Summary ---
Author Organization [place] Address [address] [place] [address] Care Team Providers Care Obiee Consultant Name Role Phone Thang Diana [place] [facility] Unavailable Rain Galaviz PA-C Unavailable Tavia Wyatt MD Unavailable Unavailable Erica Farrell APRN SERVICE RIG OPERATOR Unavailable Rich Barrett MD Unavailable Neil Kent MD Unavailable Diana Desir Stanislav [facility] Unavailable [phone] Livan Sharif MD Unavailable Catherine Cm MD Unavailable + Valery Veronica PA-C Unavailable [phone] Brea Quinn MANAGER OF CONSTRUCTION SERVICE RIG OPERATOR Unavailable Brea Quinn MANAGER OF CONSTRUCTION SERVICE RIG OPERATOR Unavailable [phone] Jose Francisco Johnson MD Unavailable Alfonso Renteria MD Unavailable + [phone] Esha Grimm PA-C Primary Care Provider [phone] Radha Lomeli MANAGER OF CONSTRUCTION SERVICE RIG OPERATOR Unavailable [phone] FrankieJelena OD Unavailable Pao Joseph RN Unavailable Unavailable Wicho Grimmlincoln Medina PA-C Unavailable [phone] Valery Veronica PA-C Unavailable [phone] Rey Tay MD Unavailable Rocky Zepeda DO Unavailable Philip Dumont MD Unavailable [phone] Meredith Carrera PA-C Unavailable [phone] Neil Kent MD Unavailable Juan Pablo Emmanuel MD Unavailable [phone] Audrey Waite PA-C Unavailable [phone] Encounter Details Date Type Department Care Team (Late st Contact Info) Description 09/08/2023 MyC Medical Advice [facility] G[facility]ology [facility] [address] [address] Marija Polanco RN Social History [...] Score 0 06/20/2023 [facility] - Occupational Stress Questionnaire [...] exercise at this level? 30 min 03/10/2023 [place] Depression Scale Answer Date Recorded [place] Depression Score 5 01/14/2021 Last EPDS Self [...] Description 03/26/2024 11:20 AM CDT Office Visit [facility] Spine and Neurosurgery [address] [facility] [address] [place] [address] Ebony Cid, [facility] 500 [place] [address] 03/27/2024 11:00 AM CDT Office Visit [facility] [place] [address] [facility] [address] [place] [phone] Jelena David, 3305 [facility] [place] [address] 03/29/2024 3:30 PM CDT Therapy Visit [facility] Rehabilitation Services [place] [address] [place] [address] [address] [place] [phone] Ingris Thompson, PT [facility] 516 [facility] 106 [place] [address] 04/05/2024 2:10 PM CDT Therapy Visit [facility] [place] [address] [facility] [address] [place] [address] Ingris Thompson, PT [facility] 516 [facility] 106 [place], [place] [address] 04/19/2024 2:45 PM CDT Office Visit [facility] 830 [place] [phone] Audrey Waite PA-C 420 [facility] [address]385, [facility] 603 [place], [place] [address]605 05/08/2024 1:30 PM CDT Office Visit [facility] [address] [place] [address] Lauren Claudio PA-C [address] [place], [place] [phone] Esha Grimm PA-C [address] [place] [address] 06/21/2024 2:00 PM NUTRITION CLUB AMBASSADOR Office Visit [facility] Neurology Clinics - [place] [address] [place] [address], [address] [place] [address] [place] [address] [place] [address] Johnny Penn MD 6514 [place], [place] [phone] documented as of this encounter Visit Diagnoses Not on filedocumented in this encounter Additional Health Concerns Infection Onset Date Last Indicated Resolved Time Rule Out COVID-19 12/26/2023 12/26/2023 12/26/2023 9:50 AM CDT Assessment Noted Time PHQ-9 Depression Total Score: 4 06/20/20 23 8:40 AM NUTRITION CLUB AMBASSADOR documented as of this encounter Care Teams Obiee Consultant Relationship Specialty Start Date End Date Esha Grimm PA-C [address] [place] [address] PCP - General Family Medicine 05/04/23 Diana Desir, [facility] [address] [place], [place] [address] Pharmacist Pharmacist 04/17/21 Rain Galaviz PA-C [address] [place] [address] [address] [place] [address] Physician Tool Designer Apprentice Dermatology 04/28/21 Tavia Wyatt MD [address] [place] [address] DR AR[address] [facility] [place] [address] Dermatology 07/14/21 Erica Farrell APRN SERVICE RIG OPERATOR 6405 [facility] [address] [place] [address] Nurse Practitioner Cardiovascular Disease 09/09/21 Rich Barrett MD 516 [facility] 9A [place], [place] 8989[address] Physician Ophthalmology 01/21/22 Neil Kent MD 500 [place], [place] 903445 Dermatology 02/24/22 [facility] 3033 [place] [address] Assigned MTM Pharmacist 04/07/22 Livan Sharif MD [address], [facility] [address] [place] [address] Cardiovascular Disease 05/14/22 Catherine Cm MD [address] [facility] [address] [place], [place] [address] Cardiovascular Disease 07/21/22 Valery Veronica, PA-C [address] [place] [address]69[address] Physician Tool Designer Apprentice Dermatology 07/21/22 Brea Quinn APRN SERVICE RIG OPERATOR 500 [place], [place] 546[address] Nurse Practitioner Dermatology 09/21/22 Brea Quinn APRN SERVICE RIG OPERATOR 6401 [place] [address] Assigned Surgical Provider 10/09/22 [place] [address] [address] [facility] 300 [place] [address] Assigned Musculoskeletal Provider 10/09/22 Alfonso Renteria MD 5775 [facility] 200 [place] [address] Assigned Neuroscience Provider 04/02/23 Radha Lomeli APRN SERVICE RIG OPERATOR 6405 [facility] [address] [place] [address] Assigned Heart and Vascular Provider 05/28/23 Jelena David OD [address] [facility] [place] [address] MD Ophthalmology 06/15/23 Pao Joseph, VJ Personal Advocate & Liaison (PAL) Nurse 08/01/23 11/07/23 Esha Grimm PA-C [address] [place] [phone] Assigned PCP 07/16/23 Valery Veronica PA-C [address] [place] [address] Physician Tool Designer Apprentice Dermatology 09/19/23 Rey Tay MD [address] [place] [address] 608515 Gastroenterology 09/20/23 Rocky Zepeda DO [address] [place] [address] 752295 Physician Gastroenterology 09/20/23 Philip Dumont MD [address] [place] [address] Physician Ophthalmology 09/22/23 Meredith Carrera PA-C [address] [place] [address] Assigned Gastroenterology Provider 11/01/23 Neil Kent MD [address] [place] [address] Dermatology 11/02/23 [place] [address] [place] [address] Neurological Surgery 12/26/23 Audrey Waite PA-C 500 [place] [address] Physician Tool Designer Apprentice Dermatology 02/28/24 documented as of this encounter
--- OUTSIDE RECORDS SUMMARY | 2024-03-23 15:58 | XMS_ITS | Encounter Summary ---
Author Organization [place] Address [address] [place] [address] Care Team Providers Care Process Improvement Engineer Name Role Phone Thang Diana [place] [facility] Unavailable Rain Galaviz PA-C Unavailable Tavia Wyatt MD Unavailable Unavailable Erica Farrell APRN SPECIALIST WOUND CARE Unavailable Rich Barrett MD Unavailable Neil Kent MD Unavailable Diana Desir Stanislav [facility] Unavailable [phone] Livan Sharif MD Unavailable Catherine Cm MD Unavailable + Valery Veronica PA-C Unavailable [phone] Brea Quinn BUILDING CODE INSPECTOR SPECIALIST WOUND CARE Unavailable Brea Quinn BUILDING CODE INSPECTOR SPECIALIST WOUND CARE Unavailable Jose Francisco Johnson MD Unavailable Alfonso Renteria MD Unavailable + [phone] Esha Grimm PA-C Primary Care Provider Radha Lomeli BUILDING CODE INSPECTOR SPECIALIST WOUND CARE Unavailable [phone] FrankieJelena OD Unavailable Pao Joseph RN Unavailable Unavailable Alfa Eshalincoln DOWC Unavailable [phone] Valery VeronicaC Unavailable Rey Tay MD Unavailable Rocky Zepeda DO Unavailable Philip Dumont MD Unavailable [phone] Meredith Carrera PA-C Unavailable Neil Kent MD Unavailable Juan Pablo Emmanuel MD Unavailable Audrey Waite PA-C Unavailable [phone] Reason for Visit * Reason Onset Date Comments Medication Question 10/21/2023 omeprazole Encounter Details Date Type Department Care Team (Late st Contact Info) Description 10/21/2023 Telephone [facility] Gastroenterology Clinic [address] [place] [address] Meredith Carrera PA-C [address] [place] [address] Medication Question (omeprazole ) Social History [...] How often do you attend chur or evangelical services? 1 to 4 times [...] 0 10/25/2023 [facility] - Occupational [...] at this level? 30 min 03/10/2023 [place] Depression Scale Answer Date Recorded [place] Depression Score 5 01/14/2021 Last EPDS [...] Mayra Rajput - 10/21/2023 4:42 PM CDT [facility] Call Center Phone Message May a [...] Center (CSC): [facility] GASTROENTEROLOGY ADULT [facility][[id number]] Travel Screening: Not Applicable documented in this encounter Plan of Treatment Upcoming Encounters Date Type Department Care Team (Late st Contact Info) Description 03/26/2024 11:20 AM CDT Office Visit [facility] Spine and Neurosurgery [address] [place] [address] Ebony Cid, BUILDING CODE INSPECTOR SPECIALIST WOUND CARE 500 [place] [address] 03/27/2024 11:00 AM CDT Office Visit [facility] [place] [address] [facility] [address] [place] [phone] Jelena David, 3305 [facility] [place] [address] 03/29/2024 3:30 PM CDT Therapy Visit [facility] [address] [place] [address] 160 [place] [phone] Ingris Thompson, PT [facility] [address] [place] [address] 106 [place] [address] 04/05/2024 2:10 PM CDT Therapy Visit [facility] [address] [place] [address] 160 [place] [phone] Ingris Thompson, PT [facility] [address] [place] [address] 04/19/2024 2:45 PM CDT Office Visit [facility] 830 [place] [phone] Audrey Waite PA-C 420 [facility] B385, [facility] 603 [place] [address] 05/08/2024 1:30 PM CDT Office Visit [facility] [address] [place] [phone] Lauren Claudio PA-C [address] [place] [address] Esha Grimm PA-C [address] [place] [address] 06/21/2024 2:00 PM DIRECT CARE WORKER Office Visit [facility] Neurology [facility]ics - [place] 6545 [facility], [address] [place] [address] [place] [address] [place], [place] [phone] Johnny Penn MD 5599 [place], [place] [phone] documented as of this encounter Visit Diagnoses Not on filedocumented in this encounter Additional Health Concerns Infection Onset Date Last Indicated Resolved Time Rule Out COVID-19 12/26/2023 12/26/2023 12/26/2023 9:50 AM CDT Assessment Noted Time PHQ-9 Depression Total Score: 4 06/20/20 23 8:40 AM DIRECT CARE WORKER documented as of this encounter Care Teams Process Improvement Engineer Relationship Specialty Start Date End Date Esha Grimm PA-C [address] [place] [address] PCP - General Family Medicine 05/04/23 Diana Desir, [facility] 3033 [place] [address] Pharmacist Pharmacist 04/17/21 Rain Galaviz PA-C [address] [place] [address] [address] [facility] [place] [address] Physician Patch Machine Operator Dermatology 04/28/21 Tavia Wyatt MD [address] [place] [address] [address] [place] [address] Dermatology 07/14/21 Erica Farrell APRN SPECIALIST WOUND CARE [address] [place] [address] Nurse Practitioner Cardiovascular Disease 09/09/21 Rich Barrett MD 516 [facility], [facility] 9A [place], [place] [address] Physician Ophthalmology 01/21/22 Neil Kent MD 500 [place], [place] [phone] Dermatology 02/24/22 [facility] 3033 [place], [place] 210536 Assigned MTM Pharmacist 04/07/22 Livan Sharif MD [address] [place] [address] Cardiovascular Disease 05/14/22 Catherine Cm MD [address] [place] [address] Cardiovascular Disease 07/21/22 Valery Veronica, PA-C [address] [place] [address] 926845 Physician Patch Machine Operator Dermatology 07/21/22 Brea Quinn APRN SPECIALIST WOUND CARE 500 [place], [place] [phone] Nurse Practitioner Dermatology 09/21/22 Brea Quinn APRN SPECIALIST WOUND CARE 6401 [place] [address] Assigned Surgical Provider 10/09/22 [place] [address] [address] [facility] 300 [place] [address] Assigned Musculoskeletal Provider 10/09/22 Alfonso Renteria MD [address] [facility] 200 [place], [place] [address] Assigned Neuroscience Provider 04/02/23 Radha Lomeli APRN SPECIALIST WOUND CARE [address] [address] Assigned Heart and Vascular Provider 05/28/23 Jelena David OD [address] [facility] [place] [address] Ophthalmology 06/15/23 Pao Joseph, VJ Personal Advocate & Liaison (PAL) Nurse 08/01/23 11/07/23 Esha Grimm PA-C [address] [place] [address] Assigned PCP 07/16/23 Valery Veronica PA-C [address] [place] [address] 6[address]655 Physician Patch Machine Operator Dermatology 09/19/23 Rey Tay MD 9 [place] [address] MD Gastroenterology 09/20/23 Rocky Zepeda DO 500 [place] [address] Physician Gastroenterology 09/20/23 Philip Dumont MD 516 [place] [address] Physician Ophthalmology 09/22/23 Meredith Carrera PA-C [address] [place] [address] 617725 Assigned Gastroenterology Provider 11/01/23 Neil Kent MD [address] 4577[address] Dermatology 11/02/23 [place] [address] [place], [place] 791087 Neurological Surgery 12/26/23 Audrey Waite PA-C 500 [place] [address] Physician Patch Machine Operator Dermatology 02/28/24 documented as of this encounter
--- OUTSIDE RECORDS SUMMARY | 2024-03-23 15:58 | XMS_ITS | Encounter Summary ---
Author Organization [place] Address [address] [place] [address] Care Team Providers Care Melter Loader Name Role Phone Thang Diana [place] [facility] Unavailable Rain Galaviz PA-C Unavailable Tavia Wyatt MD Unavailable Unavailable Erica Farrell APRN [employer] TECHNICAL MANAGER Unavailable Rich Barrett MD Unavailable Neil Kent MD Unavailable Diana Desir Stanislav [facility] Unavailable [phone] Livan Sharif MD Unavailable Catherine mC MD Unavailable + Valery Veronica PA-C Unavailable [phone] Brea Quinn TIRE VULCANIZER [employer] TECHNICAL MANAGER Unavailable Brea Quinn TIRE VULCANIZER [employer] TECHNICAL MANAGER Unavailable Jose Francisco Johnson MD Unavailable Alfonso Renteria MD Unavailable + [phone] Esha Grimm PA-C Primary Care Provider Radha Lomeli TIRE VULCANIZER [employer] TECHNICAL MANAGER Unavailable [phone] Jelena David OD Unavailable Esha Grimm PA-C Unavailable [phone] Valery Veronica PA-C Unavailable [phone] Rey Tay MD Unavailable Rocky Zepeda DO Unavailable Philip Dumont MD Unavailable [phone] Meredith Carrera PA-C Unavailable [phone] Neil Kent MD Unavailable Juan Pablo Emmanuel MD Unavailable [phone] Audrey Waite PA-C Unavailable [phone] Encounter Details Date Type Department Care Team (Late st Contact Info) Description 11/16/2023 MyC Medical Advice [address] [address] Asiya Reddy, RN Social History [...] 10/25/2023 [facility] ional [facility] [...] exercise at this level? 30 min 03/10/2023 [place] Depression Scale Answer Date Recorded [place] Depression Score 5 01/14/2021 Last EPDS Self [...] Visit [facility] [address] [place] [address] Ebony Cid, TIRE VULCANIZER [facility] 500 [place] [address] 03/27/2024 11:00 AM CDT Office Visit [facility] [place] 3305 [facility] [address] [place] [phone] Jelena David, 3305 [facility] [place] [address] 03/29/2024 3:30 PM CDT Therapy Visit [facility] [place] [address] [place] [address] [address] [place] [phone] Ingris Thompson, PT [facility] 6 [facility] 106 [place] [address] 04/05/2024 2:10 PM CDT Therapy Visit [facility] [place] [address] [facility] [address] [place] [phone] Ingris Thompson, PT [facility] [address] [facility] [address] [facility] 106 [place] [address] 04/19/2024 2:45 PM CDT Office Visit [facility] 830 [place] [address] Audrey Waite PA-C [address] [facility] [address], [facility] 603 [place], [place] [address] 05/08/2024 1:30 PM CDT Office Visit [facility] [address] [place] [phone] Lauren Claudio PA-C [address] [place], [place] [phone] Esha Grimm PA-C [address] [place] [address] 06/21/2024 2:00 PM LEARNING CENTER COORDINATOR Office Visit [facility]rology [facility] - [place] [address] [place] [address], [address] [place] [address] [place] [address] [place] [phone] Johnny Penn MD 6545 [place] [address] documented as of this encounter Visit Diagnoses Not on filedocumented in this encounter Additional Health Concerns Infection Onset Date Last Indicated Resolved Time Rule Out COVID-19 12/26/2023 12/26/2023 12/26/2023 9:50 AM CDT Assessment Noted Time PHQ-9 Depression Total Score: 4 06/20/20 23 8:40 AM LEARNING CENTER COORDINATOR documented as of this encounter Care Teams Melter Loader Relationship Specialty Start Date End Date Esha Grimm PA-C [address] [place] [address] PCP - General Family Medicine 05/04/23 Diana Desir, [facility] [address] [place], [place] 4828[address] Pharmacist Pharmacist 04/17/21 Rain Galaviz PA-C [address] [place] [address] [address] [place] [address] Physician Product Management Manager Dermatology 04/28/21 Tavia Wyatt MD [address] [place] [address] [address] [place] [address] Dermatology 07/14/21 Erica Farrell APRN [employer] TECHNICAL MANAGER 6405 [facility] [address] [place] [address] Nurse Practitioner Cardiovascular Disease 09/09/21 Rich Barrett MD 516 [facility] 9A [place], [place] [address] Physician Ophthalmology 01/21/22 Neil Kent MD 500 [place], [place] 315425 Dermatology 02/24/22 Diana Desir, [facility] 3033 [place] [address] Assigned MTM Pharmacist 04/07/22 Livan Sharif MD 6405 [facility] [address] [place] [address] Cardiovascular Disease 05/14/22 Catherine Cm MD [address] [facility] [address] [place] [address] Cardiovascular Disease 07/21/22 Valery Veronica, PAUcheC [address] [place] [address] Physician Product Management Manager Dermatology 07/21/22 Brea Quinn APRN [employer] TECHNICAL MANAGER [address] [place] [address] Nurse Practitioner Dermatology 09/21/22 Brea Quinn APRN [employer] TECHNICAL MANAGER [address] [place] [address] Assigned Surgical Provider 10/09/22 [place] [address] [address] Assigned Musculoskeletal Provider 10/09/22 Alfonso Renteria MD 5775 [facility] 200 [place] [address] Assigned Neuroscience Provider 04/02/23 Radha Lomeli APRN [employer] TECHNICAL MANAGER [address] [place] [address] Assigned Heart and Vascular Provider 05/28/23 Jelena David OD [address] [place] [address] MD Ophthalmology 06/15/23 Esha Grimm PA-C [address] [place] [address]495[address] Assigned PCP 07/16/23 Valery Veronica PA-C [address] [place] [address] 282485 Physician Product Management Manager Dermatology 09/19/23 Rey Tay MD [address] [place] [address] 670165 Gastroenterology 09/20/23 Rocky Zepeda DO [address] [place] [address] 932575 Physician Gastroenterology 09/20/23 Philip Dumont MD [address] [place] [address] 195375 Physician Ophthalmology 09/22/23 Meredith Carrera PA-C [address] [place] [address] 620225 Assigned Gastroenterology Provider 11/01/23 Neil Kent MD [address] 684940 Dermatology 11/02/23 [place] [address] [address] Neurological Surgery 12/26/23 Audrey Waite, PAL[place] 500 [place], [place] 554[address] Physician Product Management Manager Dermatology 02/28/24 documented as of this encounter
--- OUTSIDE RECORDS SUMMARY | 2024-03-23 15:58 | XMS_ITS | Encounter Summary ---
Author Organization [place] Address [address] [place] [address] Care Team Providers Care Detective Supervisor Name Role Phone Thang Diana [place] [facility] Unavailable [phone] Rain Galaviz PA-C Unavailable Tavia Wyatt MD Unavailable Unavailable Erica Farrell APRN DONOR RELATIONS MANAGER Unavailable Rich Barrett MD Unavailable Neil Kent MD Unavailable Diana Desir Stanislav [facility] Unavailable [phone] Livan Sharif MD Unavailable Catherine Cm MD Unavailable + Valery Veronica PA-C Unavailable [phone] Brea Quinn CRUSHED STONE GRADER DONOR RELATIONS MANAGER Unavailable Brea Quinn CRUSHED STONE GRADER DONOR RELATIONS MANAGER Unavailable Jose Francisco Johnson MD Unavailable Alfonso Renteria MD Unavailable + [phone] Esha Grimm PA-C Primary Care Provider Radha Lomeli CRUSHED STONE GRADER DONOR RELATIONS MANAGER Unavailable [phone] Jelena David OD Unavailable Esha Grimm PA-C Unavailable [phone] Valery Veronica PA-C Unavailable [phone] Rey Tay MD Unavailable Rocky Zepeda DO Unavailable Philip Dumont MD Unavailable [phone] Meredith Carrera PA-C Unavailable [phone] Neil Kent MD Unavailable Juan Pablo Emmanuel MD Unavailable [phone] Audrey Waite PA-C Unavailable [phone] Encounter Details Date Type Department Care Team (Late st Contact Info) Description 11/15/2023 MyC Medical Advice [address] [address] Vivian Grant Social History Tobacco [...] Answer Date Recorded PHQ-2 Score 0 10/25/2023 [facility] - Occupational Stress [...] exercise at this level? 30 min 03/10/2023 [place] Depression Scale Answer Date Recorded [place] Depression Score 5 01/14/2021 Last EPDS Self [...] Visit [facility] Neuro[facility] [address] [place] [address] Ebony Cid, CRUSHED [facility]ONE [facility] 500 [place] [address] 03/27/2024 11:00 AM CDT Office Visit [facility] [place] [address] [facility] [address] [place] [address] Jelena David, 3305 [facility] [place] [address] 03/29/2024 3:30 PM CDT Therapy Visit [facility] Rehabilitation Services [place] [address] [place] [address] [address] [place] [phone] Ingris Thompson, PT [facility] 516 [facility] 106 [place] [address] 04/05/2024 2:10 PM CDT Therapy Visit [facility] [place] [address] [facility] [address] [place] [address] Ingris Thompson, PT [facility] [address] [facility] 106 [place] [address] 04/19/2024 2:45 PM CDT Office Visit [facility] 830 [place] [phone] Audrey Waite PA-C [address], [facility] 603 [place], [place] [address] 05/08/2024 1:30 PM CDT Office Visit [facility] [address] [place] [address] Lauren Claudio PA-C [address] [place], [place] [phone] Esha Grimm PA-C [address] [place] [address] 06/21/2024 2:00 PM ROLL SLICING MACHINE TENDER Office Visit [facility] Neurology [facility]ics - [place] [address] [place] [address], [address] [place] [address] [place] [address] [place] [phone] Johnny Penn MD 9555 [place] [address] documented as of this encounter Visit Diagnoses Not on filedocumented in this encounter Additional Health Concerns Infection Onset Date Last Indicated Resolved Time Rule Out COVID-19 12/26/2023 12/26/2023 12/26/2023 9:50 AM CDT Assessment Noted Time PHQ-9 Depression Total Score: 4 06/20/20 23 8:40 AM ROLL SLICING MACHINE TENDER documented as of this encounter Care Teams Detective Supervisor Relationship Specialty Start Date End Date Esha Grimm PA-C [address] [place] [address] PCP - General Family Medicine 05/04/23 Diana Desir, [facility] [address] [place] [address] Pharmacist Pharmacist 04/17/21 Rain Galaviz PA-C [address] [place] [address] [address] [place] [id number] Physician Vp Of Digital Marketing Dermatology 04/28/21 Tavia Wyatt MD [address] [place] [address] [address] [facility] [place] [id number] Dermatology 07/14/21 Erica Farrell APRN DONOR RELATIONS MANAGER 6405 [facility] [address] [place] [address] Nurse Practitioner Cardiovascular Disease 09/09/21 Rich Barrett MD 516 [facility], [facility] 9A [place], [place] [address] Physician Ophthalmology 01/21/22 Neil Kent MD 500 [place] [address] Dermatology 02/24/22 Diana Desir, [facility] 3033 [place] [address] Assigned MTM Pharmacist 04/07/22 Livan Sharif MD [address] [facility] [address] [place] [address] Cardiovascular Disease 05/14/22 Catherine Cm MD [address] 16[address]400 [place] [address] Cardiovascular Disease 07/21/22 Valery Veronica, PAUcheC [address] [place] [address] 455685 Physician Vp Of Digital Marketing Dermatology 07/21/22 Brea Quinn APRN DONOR RELATIONS MANAGER [address] [place] [address] Nurse Practitioner Dermatology 09/21/22 Brea Quinn APRN DONOR RELATIONS MANAGER [address] [place] [address] 565612 Assigned Surgical Provider 10/09/22 [place] [address] [address] Assigned Musculoskeletal Provider 10/09/22 Alfonso Renteria MD [address] [address] Assigned Neuroscience Provider 04/02/23 Radha Lomeli APRN DONOR RELATIONS MANAGER [address] [place] [address] Assigned Heart and Vascular Provider 05/28/23 Jelena David OD [address] [facility] [place] [address] MD Ophthalmology 06/15/23 Esha Grimm PA-C [address] [place] [address] Assigned PCP 07/16/23 Valery Veronica PA-C [address] [place] [address] 340905 Physician Vp Of Digital Marketing Dermatology 09/19/23 Rey Tay MD [address] [place] [address] 886815 MD Gastroenterology 09/20/23 Rocky Zepeda DO [address] [place] [address] 0638[address] Physician Gastroenterology 09/20/23 Philip Dumont MD [address] [place] [address] 990815 Physician Ophthalmology 09/22/23 Meredith Carrera PA-C [address] [place] [address] 133585 Assigned Gastroenterology Provider 11/01/23 Neil Kent MD [address] [address] Dermatology 11/02/23 [place] [address] [address] [address] Neurological Surgery 12/26/23 Audrey Waite PA-C [address] [place], [place] 176275 Physician Vp Of Digital Marketing Dermatology 02/28/24 documented as of this encounter
--- OUTSIDE RECORDS SUMMARY | 2024-03-23 15:58 | XMS_ITS | Encounter Summary ---
Author Organization [place] Address [address] [place] [address] Care Team Providers Care Acidity Tester Name Role Phone Thang Diana [place] [facility] Unavailable Rain Galaviz PA-C Unavailable Tavia Wyatt MD Unavailable Unavailable Erica Farrell APRN CLINICAL REHABILITATION AIDE Unavailable Rich Barrett MD Unavailable Neil Kent MD Unavailable Diana Desir Stanislav [facility] Unavailable [phone] Livan Sharif MD Unavailable Catherine Cm MD Unavailable + Valery Veronica PA-C Unavailable [phone] Brea Quinn LEGAL OFFICE ADMINISTRATOR CLINICAL REHABILITATION AIDE Unavailable [phone] Brea Quinn LEGAL OFFICE ADMINISTRATOR CLINICAL REHABILITATION AIDE Unavailable Jose Francisco Johnson MD Unavailable Alfonso Renteria MD Unavailable + [phone] Esha Grimm PA-C Primary Care Provider Radha Lomeli LEGAL OFFICE ADMINISTRATOR CLINICAL REHABILITATION AIDE Unavailable [phone] FrankieJelena OD Unavailable Pao Joseph RN Unavailable Unavailable [facility] [place] PA-C Unavailable [phone] Valery Veronica PA-C Unavailable [phone] Rey Tay MD Unavailable Rocky Zepeda DO Unavailable Philip Dumont MD Unavailable [phone] Meredith Carrera PA-C Unavailable [phone] Neil Kent MD Unavailable Juan Pablo Emmanuel MD Unavailable [phone] Audrey Waite PA-C Unavailable [phone] Encounter Details Date Type Department Care Team (Late st Contact Info) Description 10/25/2023 MyC Medical Advice [facility] [address] [address] [place] Social History Tobacco [...] 10/25/2023 [facility] - Occupational Stress Questionnaire Answer Date [...] exercise at this level? 30 min 03/10/2023 [place] Depression Scale Answer Date Recorded [place] Depression Score 5 01/14/2021 Last EPDS Self [...] [facility] [address] [facility] [address] [place] [address] Ebony Cid, [facility] 500 [place] [address] 03/27/2024 11:00 AM CDT Office Visit [facility] [place] 3305 [facility] [address] [place] [phone] Jelena David, 3305 [facility] [place] [address] 03/29/2024 3:30 PM CDT Therapy Visit [facility] Rehabilitation Services [place] [address] [place] [address] [address] [place] [phone] Ingris Thompson, PT [facility] 516 [facility] 106 [place] [address] 04/05/2024 2:10 PM CDT Therapy Visit [facility] Rehabilitation Services [place] [address] [facility] [address] [place] [address] Ingris Thompson, PT [facility] 516 [facility] 106 [place], [place] 2664[address] 04/19/2024 2:45 PM CDT Office Visit [facility] 830 [place] [phone] Audrey Waite PA-C 420 [facility] [address], [facility] 603 [place], [place] [address] 05/08/2024 1:30 PM CDT Office Visit [facility] [address] [place] [address] Lauren Claudio PA-C [address] [place], [place] [phone] Esha Grimm PA-C [address] [place] [address] 06/21/2024 2:00 PM HEALTH INFORMATION MANAGERS Office Visit [facility] [place] [address] [place] [address], [address] [place] [address] [place] [address] [place] [address] Johnny Penn MD 6572 [place], [place] [phone] documented as of this encounter Visit Diagnoses Not on filedocumented in this encounter Additional Health Concerns Infection Onset Date Last Indicated Resolved Time Rule Out COVID-19 12/26/2023 12/26/2023 12/26/2023 9:50 AM CDT Assessment Noted Time PHQ-9 Depression Total Score: 4 06/20/20 23 8:40 AM HEALTH INFORMATION MANAGERS documented as of this encounter Care Teams Acidity Tester Relationship Specialty Start Date End Date Esha Grimm PA-C [address] [place] [address] PCP - General Family Medicine 05/04/23 Diana Desir, [facility] [address] [place], [place] [address] Pharmacist Pharmacist 04/17/21 Rain Galaviz PA-C [address] [place] [address] [address] [place] [address] Physician Paid Search Analyst Dermatology 04/28/21 Tavia Wyatt MD [address] [place] [address] DR ARRI[address]A [facility] [place] [address] Dermatology 07/14/21 Erica Farrell APRN CLINICAL REHABILITATION AIDE 6405 [facility] [address] [place] [address] Nurse Practitioner Cardiovascular Disease 09/09/21 Rich Barrett MD 516 [facility] 9A [place], [place] 6[address] Physician Ophthalmology 01/21/22 Neil Kent MD 500 [place], [place] 562765 Dermatology 02/24/22 [facility] 3033 [place] [address] Assigned MTM Pharmacist 04/07/22 Livan Sharif MD [address], [facility] [address] [place] [address] Cardiovascular Disease 05/14/22 Catherine Cm MD [address] [facility] [address] [place], [place] 867925 Cardiovascular Disease 07/21/22 Valery Veronica, PA-C [address] [place] [address] 843745 Physician Paid Search Analyst Dermatology 07/21/22 Bera Quinn APRN CLINICAL REHABILITATION AIDE 500 [place], [place] 462845 Nurse Practitioner Dermatology 09/21/22 Brea Quinn APRN CLINICAL REHABILITATION AIDE 6401 [place] [address] Assigned Surgical Provider 10/09/22 [place] [address] [facility] 300 [place] [address] Assigned Musculoskeletal Provider 10/09/22 Alfonso Renteria MD 5775 [facility] 200 [place] [address] Assigned Neuroscience Provider 04/02/23 Radha Lomeli APRN CLINICAL REHABILITATION AIDE 6405 [facility] [address] [place] [address] Assigned Heart and Vascular Provider 05/28/23 Jelena David OD [address] [facility] [place] [address] MD Ophthalmology 06/15/23 Pao Joseph, VJ Personal Advocate & Liaison (PAL) Nurse 08/01/23 11/07/23 Esha Grimm PA-C [address] [place] [phone] Assigned PCP 07/16/23 Valery Veronica PA-C [address] [place] [address] 964325 Physician Paid Search Analyst Dermatology 09/19/23 Rey Tay MD [address] [place] [address] 673335 Gastroenterology 09/20/23 Rocky Zepeda DO [address] [place] [address] 953175 Physician Gastroenterology 09/20/23 Philip Dumont MD [address] [place] [address] Physician Ophthalmology 09/22/23 Meredith Carrera PA-C [address] [place] [address] Assigned Gastroenterology Provider 11/01/23 Neil Kent MD [address] [place] [address] Dermatology 11/02/23 [place] [address] [address] [address] Neurological Surgery 12/26/23 Audrey Waite PA-C 500 [place] [address] Physician Paid Search Analyst Dermatology 02/28/24 documented as of this encounter
--- OUTSIDE RECORDS SUMMARY | 2024-03-23 15:59 | XMS_ITS | Encounter Summary ---
Author Organization [place] Address [address] [place] [address] Care Team Providers Care Third Rigger Name Role Phone Thang Diana [place] [facility] Unavailable Rain Galaviz PA-C Unavailable Tavia Wyatt MD Unavailable Unavailable Erica Farrell APRN DIRECTOR CAREER Unavailable Rich Barrett MD Unavailable Neil Kent MD Unavailable Diana Desir Stanislav [facility] Unavailable [phone] Livan Sharif MD Unavailable Catherine Cm MD Unavailable + Valery Veronica PA-C Unavailable [phone] Brea Quinn SPECIAL EDUCATION CLASSROOM AIDE DIRECTOR CAREER Unavailable [phone] Brea Quinn SPECIAL EDUCATION CLASSROOM AIDE DIRECTOR CAREER Unavailable Jose Francisco Johnson MD Unavailable Alfonso Renteria MD Unavailable + [phone] Esha Grimm PA-C Primary Care Provider Radha Lomeli SPECIAL EDUCATION CLASSROOM AIDE DIRECTOR CAREER Unavailable [phone] FrankieJelena OD Unavailable Pao Joseph RN Unavailable Unavailable Jesus Grimmyllincoln Medina PA-C Unavailable [phone] Valery Veronica PA-C Unavailable [phone] Rey Tay MD Unavailable Rocky Zepeda DO Unavailable Philip Dumont MD Unavailable [phone] Meredith Carrera PA-C Unavailable Neil Kent MD Unavailable Juan Pablo Emmanuel MD Unavailable [phone] Audrey Waite PA-C Unavailable [phone] Encounter Details Date Type Department Care Team (Late st Contact Info) Description 08/04/2023 MyC Medical Advice [address] [address] [facility] 3033 [place] [address] Social History Tobacco Use Types Packs/Day Years [...] Recorded PHQ-2 Score 0 06/20/2023 [facility] of Occupat ional [...] Office Visit [facility] Spine and Neurosurgery [address] [place] [address] [address] [place] [address] Ebony Cid, [facility] 500 [place] [address] 03/27/2024 11:00 AM CDT Office Visit [facility] [place] [address] [place] [phone] Jelena David, [place] 3305 [facility] [place] [address] 03/29/2024 3:30 PM CDT Therapy Visit [facility] [address] [place] [address] Ingris Thompson, PT [facility] 516 [facility] 106 [place] [address] 04/05/2024 2:10 PM CDT Therapy Visit [facility] Services [place] [address] [facility] [address] [place] [phone] Ingris Thompson, PT [facility] 516 [facility] 106 [place], [place] 3[address]15 04/19/2024 2:45 PM CDT Office Visit [address] [phone] Audrey Waite PA-C 420 [facility] [address], [facility] 603 [place], [place] [address]655 05/08/2024 1:30 PM CDT Office Visit [facility] [address] [place] [address] Lauren Claudio PA-C [address] [place], [place] [phone] Esha Grimm PA-C [address] [place] [address] 06/21/2024 2:00 PM ORACLE AGILE PLM CONSULTANT Office Visit [facility] - [place] 6545 [facility], [address] [place] [address] [place] [address] [place] [id number] Johnny Penn MD 7084 [facility] [place] [address] documented as of this encounter Visit Diagnoses Not on filedocumented in this encounter Additional Health Concerns Infection Onset Date Last Indicated Resolved Time Rule Out COVID-19 12/26/2023 12/26/2023 12/26/2023 9:50 AM CDT Assessment Noted Time PHQ-9 Depression Total Score: 4 06/20/20 23 8:40 AM ORACLE AGILE PLM CONSULTANT documented as of this encounter Care Teams Third Rigger Relationship Specialty Start Date End Date Esha Grimm PA-C [address] [place] [address] PCP - General Family Medicine 05/04/23 Diana Desir, [facility] 3033 [facility] [place] [address] Pharmacist Pharmacist 04/17/21 Rain Galaviz PA-C [address] [place] [address] [address] [place] [address] Physician Cathead Operator Dermatology 04/28/21 Tavia Wyatt MD [address] [place] [address] [address] [place] [address] Dermatology 07/14/21 Erica Farrell APRN DIRECTOR CAREER 6405 [facility] [address] [place] [address] Nurse Practitioner Cardiovascular Disease 09/09/21 Rich Barrett MD [address] 281035 Physician Ophthalmology 01/21/22 Neil Kent MD 500 [place], [place] [phone] Dermatology 02/24/22 Diana Desir, [facility] 3033 [place], [place] 55[address]2416 Assigned MTM Pharmacist 04/07/22 Livan Sharif MD 6405 [facility] [address] [place], [place] 9635[address] Cardiovascular Disease 05/14/22 Catherine Cm MD [address] 1247200 [place], [place] 773765 Cardiovascular Disease 07/21/22 Valery Veronica, PA-C [address] [place] [address] 849985 Physician Cathead Operator Dermatology 07/21/22 Brea Quinn APRN DIRECTOR CAREER [address] [place] [address] 834145 Nurse Practitioner Dermatology 09/21/22 Brea Quinn APRN DIRECTOR CAREER [address] [place] [address] 213072 Assigned Surgical Provider 10/09/22 [place] [address] 402697 Assigned Musculoskeletal Provider 10/09/22 Alfonso Renteria MD 5775 [facility] 200 [place], [place] [phone] Assigned Neuroscience Provider 04/02/23 Radha Lomeli APRN DIRECTOR CAREER 6405 [facility] [address] [place], [place] [address] Assigned Heart and Vascular Provider 05/28/23 Jelena David OD [address] [facility] [address] [place] [phone] Ophthalmology 06/15/23 Pao Joseph, VJ Personal Advocate & Liaison (PAL) Nurse 08/01/23 11/07/23 Esha Grimm PA-C [address] [place] [phone] Assigned PCP 07/16/23 Valery Veronica PA-C [address] [place] [address] 034675 Physician Cathead Operator Dermatology 09/19/23 Rey Tay MD [address] [place] [address] 837335 Gastroenterology 09/20/23 Rocky Zepeda DO [address] [place] [address] 260205 Physician Gastroenterology 09/20/23 Philip Dumont MD [address] [place] [address] 019125 Physician Ophthalmology 09/22/23 Meredith Carrera PA-C [address] [place] [address] 399855 Assigned Gastroenterology Provider 11/01/23 Neil Kent MD [address] [address] Dermatology 11/02/23 [place] [address] [place] [address] 479857 Neurological Surgery 12/26/23 Audrey Waite PAUcheC 500 [place], [place] 886675 Physician Cathead Operator Dermatology 02/28/24 documented as of this encounter
--- OUTSIDE RECORDS SUMMARY | 2024-03-23 15:59 | XMS_ITS | Encounter Summary ---
Author Organization [place] Address [address] [place] [address] Care Team Providers Care Java Portal Developer Name Role Phone ThangKendrickDiana T [facility] Unavailable Rain Galaviz-C Unavailable [phone] Tavia Wyatt MD Unavailable Unavailable Erica Farrell NETWORK ADMINISTRATOR CRAPS DEALER Unavailable Rich Barrett MD Unavailable Neil Kent MD Unavailable Diana Desir [facility] Unavailable Livan Sharif MD Unavailable Catherine Cm MD Unavailable + Valery Veronica-C Unavailable [phone] Brea Quinn NETWORK ADMINISTRATOR CRAPS DEALER Unavailable Brea Quinn NETWORK ADMINISTRATOR CRAPS DEALER Unavailable Jose Francisco Johnson MD Unavailable Sydnie Martinez RN Unavailable Unavailable Alfonso Renteria MD Unavailable + [phone] Esha Grimm PA-C Primary Care Provider Lomeli, Radha E NETWORK ADMINISTRATOR CRAPS DEALER Unavailable [phone] Jelena David OD Unavailable Pao Joseph RN Unavailable Unavailable Esha Grimm Adam PA-C Unavailable [phone] JeremíasValery PA-C Unavailable [phone] Rey Tay MD Unavailable Rocky Zepeda DO Unavailable Philip Dumont MD Unavailable [phone] Meredith Carrera PA-C Unavailable [phone] Neil Kent MD Unavailable Juan Pablo Emmanuel MD Unavailable [phone] Audrey Waite PA-C Unavailable [phone] Encounter Details Date Type Department Care Team (Late st Contact Info) Description 07/29/2023 MyC Medical Advice [address] [address] Pao Joseph, VJ Social History [...] Answer Date Recorded PHQ-2 Score 0 06/20/2023 [facility] - Occupational Stress Questionnaire Answer [...] at this level? 30 min 03/10/2023 [place] Depression Scale Answer Date Recorded [place] Depression Score 5 01/14/2021 Last EPDS [...] [facility] Neurosurgery [address] [facility] [address] [place] [address] Ebony Cid, ARLENE [facility] 500 [place] [address] 03/27/2024 11:00 AM CDT Office Visit [facility] [place] [address] [facility] [address] [place] [phone] Jelena David, SONJA 3305 [facility] [place] [address] 03/29/2024 3:30 PM CDT Therapy Visit [facility] Rehabilitation Services [place] [address] [place] [address] [address] [place] [address] Ingris Thompson, PT [facility] 516 [facility] 106 [place] [address] 04/05/2024 2:10 PM CDT Therapy Visit [facility] Services [place] [address] [facility] [address] [place] [address] Ingris Thompson, PT [facility] 516 [facility] 106 [place], [place] [address]125 04/19/2024 2:45 PM CDT Office Visit [facility] 830 [place] [phone] Audrey Waite PA-C 420 [facility] [address]385, [facility] 603 [place], [place] 2[address] 05/08/2024 1:30 PM CDT Office Visit [facility] [address] [place] [address] Lauren Claudio PA-C [address] [place], [place] [phone] Esha Grimm PA-C [address] [place] [address] 06/21/2024 2:00 PM INFORMATION SYSTEMS OPERATOR Office Visit [facility] Neurology Clinics - [address], [address] [place] [address] [place] [address] [place] [address] Johnny Penn MD 6546 [place], [place] [address] documented as of this encounter Visit Diagnoses Not on filedocumented in this encounter Additional Health Concerns Infection Onset Date Last Indicated Resolved Time Rule Out COVID-19 12/26/2023 12/26/2023 12/26/2023 9:50 AM CDT Assessment Noted Time PHQ-9 Depression Total Score: 4 06/20/20 23 8:40 AM INFORMATION SYSTEMS OPERATOR documented as of this encounter Care Teams Java Portal Developer Relationship Specialty Start Date End Date Esha Grimm PA-C [address] [facility] [place] [address] PCP - General Family Medicine 05/04/23 Diana Desir, [facility] [address] [place], [place] [address] Pharmacist Pharmacist 04/17/21 Rain Galaviz PA-C [address] [place] [address] [address] [place] [address] Physician Principal Librarian Dermatology 04/28/21 Tavia Wyatt MD [address] [place] [address] [address] [place] [address] Dermatology 07/14/21 Erica Farrell APRN CRAPS DEALER 6405 [facility] [address] [place] [address] Nurse Practitioner Cardiovascular Disease 09/09/21 Rich Barrett MD 516 [facility] 9A [place], [place] 988295 Physician Ophthalmology 01/21/22 Neil Kent MD 500 [place], [place] 844065 Dermatology 02/24/22 Diana Desir, [facility] 3033 [place] [address] Assigned MTM Pharmacist 04/07/22 Livan Sharif MD [address], [facility] [address] [place] [address] Cardiovascular Disease 05/14/22 Catherine Cm MD [address] [facility] [address] [place], [place] 487025 Cardiovascular Disease 07/21/22 Valery Veronica, PA-C [address] [place] [address] 359965 Physician Principal Librarian Dermatology 07/21/22 Brea Quinn APRN CRAPS DEALER 500 [place], [place] 459655 Nurse Practitioner Dermatology 09/21/22 Brea Quinn APRN CRAPS DEALER [address] [place] [address] Assigned Surgical Provider 10/09/22 [place] [address] [facility] 300 [place] [address] Assigned Musculoskeletal Provider 10/09/22 Sydnie Martinez RN Personal Advocate & Liaison (PAL) Family Medicine 03/28/23 07/31/23 Alfonso Renteria MD 5775 [facility] 200 [place], [place] 325386 Assigned Neuroscience Provider 04/02/23 Armani Radha ARELNE Stovall CRAPS DEALER [address] [facility] LISETH [address] [place], [place] 897055 Assigned Heart and Vascular Provider 05/28/23 Jelena David OD [address] [facility] [place] [address] MD Ophthalmology 06/15/23 Pao Joseph, VJ Personal Advocate & Liaison (PAL) Nurse 08/01/23 11/07/23 Esha Grimm PA-C [address] [place] [phone] Assigned PCP 07/16/23 Valery Veronica PA-C [address] [place] [address] 917335 Physician Principal Librarian Dermatology 09/19/23 Rey Tay MD [address] [place] [address] 136525 Gastroenterology 09/20/23 Rocky Zepeda DO [address] [place] [address] 477885 Physician Gastroenterology 09/20/23 Philip Dumont MD [address] [place] [address] Physician Ophthalmology 09/22/23 Meredith Carrera PA-C [address] [place] [address] 775045 Assigned Gastroenterology Provider 11/01/23 Neil Kent MD [address] [address] Dermatology 11/02/23 [place] [address] [place] [address] 214207 Neurological Surgery 12/26/23 Audrey Waite, PAUcheC 500 [place], [place] 626595 Physician Principal Librarian Dermatology 02/28/24 documented as of this encounter
--- OUTSIDE RECORDS SUMMARY | 2024-03-23 15:59 | XMS_ITS | Encounter Summary ---
Author Organization [place] Address [address] [place] [address] Care Team Providers Care Flat Clothier Name Role Phone Thang Diana [place] [facility] Unavailable [phone] Rain Galaviz PA-C Unavailable Tavia Wyatt MD Unavailable Unavailable Erica Farrell APRN TOP AND SEAT COVER FITTER Unavailable Rich Barrett MD Unavailable Neil Kent MD Unavailable Diana Desir Stanislav [facility] Unavailable [phone] Livan Sharif MD Unavailable Catherine Cm MD Unavailable + Valery Veronica PA-C Unavailable [phone] Brea Quinn PACKER INSPECTOR TOP AND SEAT COVER FITTER Unavailable Brea Quinn PACKER INSPECTOR TOP AND SEAT COVER FITTER Unavailable Jose Francisco Johnson MD Unavailable Alfonso Renteria MD Unavailable + [phone] Esha Grimm PA-C Primary Care Provider [phone] Radha Lomeli PACKER INSPECTOR TOP AND SEAT COVER FITTER Unavailable [phone] FrankieJelena OD Unavailable Pao Joseph RN Unavailable Unavailable Jesus Grimmyllincoln Medina PA-C Unavailable [phone] Valery Veronica PA-C Unavailable Rey Tay MD Unavailable Rocky Zepeda DO Unavailable Philip Dumont MD Unavailable [phone] Meredith Carrera PA-C Unavailable Neil Kent MD Unavailable Juan Pablo Emmanuel MD Unavailable [phone] Audrey Waite PA-C Unavailable [phone] Encounter Details Date Type Department Care Team (Late st Contact Info) Description 09/01/2023 MyC Medical Advice [address] [address] [facility] 3033 [place] [address] Social History Tobacco Use Types Packs/Day Years [...] Answer Date Recorded PHQ-2 Score 0 06/20/2023 [facility] [...] exercise at this level? 30 min 03/10/2023 [place] Depression Scale Answer Date Recorded [place] Depression Score 5 01/14/2021 Last EPDS Self [...] [facility] Spine and Neurosurgery [address] [place] [address] [address] [place] [address] Ebony Cid, ARLENE [facility] 500 [place] [address] 03/27/2024 11:00 AM CDT Office Visit [facility] [place] [address] [facility] [address] [place] [phone] Jelena David, OD 3305 [facility] [place] [address] 03/29/2024 3:30 PM CDT Therapy Visit [facility] Rehabilitation Services [address] [place] [address] Ingris Thompson, PT [facility] 516 [facility] 106 [place] [address] 04/05/2024 2:10 PM CDT Therapy Visit [facility] Rehabilitation Services [place] [address] [facility] [address] [place] [phone] Ingris Thompson, PT [facility] 516 [facility] 106 [place], [place] 9[address]855 04/19/2024 2:45 PM CDT Office Visit [address] [phone] Audrey Waite PA-C 420 [facility] [address]385, [facility] 603 [place], [place] 8[address]95 05/08/2024 1:30 PM CDT Office Visit [facility] [address] [place] [phone] Lauren Claudio PA-C [address] [place], [place] [phone] Esha Grimm PA-C [address] [place] [address] 06/21/2024 2:00 PM RECOVERY OPERATOR HELPER Office Visit [facility] Neurology Clinics - [place] 65[address] [facility], [address] [place] [address] [place] [address] [place] [id number] Johnny Penn MD 3917 [facility] [place] [address] documented as of this encounter Visit Diagnoses Not on filedocumented in this encounter Additional Health Concerns Infection Onset Date Last Indicated Resolved Time Rule Out COVID-19 12/26/2023 12/26/2023 12/26/2023 9:50 AM CDT Assessment Noted Time PHQ-9 Depression Total Score: 4 06/20/20 23 8:40 AM RECOVERY OPERATOR HELPER documented as of this encounter Care Teams Flat Clothier Relationship Specialty Start Date End Date Esha Grimm PA-C [address] [place] [address] PCP - General Family Medicine 05/04/23 Diana Desir, [facility] 3033 [facility] [address] Pharmacist Pharmacist 04/17/21 Rain Galaviz PA-C [address] [place] [address] [address] [place] [address] Physician Store Specialist Dermatology 04/28/21 Tavia Wyatt MD [address] [place] [address] [address] [place] [address] Dermatology 07/14/21 Erica Farrell APRN TOP AND SEAT COVER FITTER 6405 [facility] [address] [place] [address] Nurse Practitioner Cardiovascular Disease 09/09/21 Rich Barrett MD [address] 497615 Physician Ophthalmology 01/21/22 Neil Kent MD 500 [place], [place] [phone] Dermatology 02/24/22 Diana Desir, [facility] 3033 [place], [place] [address] Assigned MTM Pharmacist 04/07/22 Livan Sharif MD 6405 [facility] LISETH [facility] [address] [place], [place] 895[address] Cardiovascular Disease 05/14/22 Catherine Cm MD [address] [place] 7399800 [place], [place] 801185 Cardiovascular Disease 07/21/22 Valery Veronica, PA-C [address] [place] [address] Physician Store Specialist Dermatology 07/21/22 Brea Quinn APRN TOP AND SEAT COVER FITTER [address] [place] [address] 022135 Nurse Practitioner Dermatology 09/21/22 Brea Quinn APRN TOP AND SEAT COVER FITTER [address] [place] [address] 490292 Assigned Surgical Provider 10/09/22 [place] [address] 845987 Assigned Musculoskeletal Provider 10/09/22 Alfonso Renteria MD 5775 [facility] 200 [place], [place] [phone] Assigned Neuroscience Provider 04/02/23 Radha Lomeli APRN TOP AND SEAT COVER FITTER 6405 [facility] [address] [place], [place] 593455 Assigned Heart and Vascular Provider 05/28/23 Jelena David OD [address] [facility] [address] [place] [phone] Ophthalmology 06/15/23 Pao Joseph, VJ Personal Advocate & Liaison (PAL) Nurse 08/01/23 11/07/23 Esha Grimm PA-C [address] [place] [phone] Assigned PCP 07/16/23 Valery Veronica PA-C [address] [place] [address] 161075 Physician Store Specialist Dermatology 09/19/23 Rey Tay MD [address] [place] [address] 966645 Gastroenterology 09/20/23 Rocky Zepeda DO [address] [place] [address] 702405 Physician Gastroenterology 09/20/23 Philip Dumont MD [address] [place] [address] 231755 Physician Ophthalmology 09/22/23 Meredith Carrera PA-C [address] [place] [address] 038355 Assigned Gastroenterology Provider 11/01/23 Neil Kent MD [address] [address] Dermatology 11/02/23 [place] [address] [place] [address] 528417 Neurological Surgery 12/26/23 Audrey Waite PAUcheC 500 [place], [place] 796095 Physician Store Specialist Dermatology 02/28/24 documented as of this encounter
--- OUTSIDE RECORDS SUMMARY | 2024-03-23 15:59 | XMS_ITS | Encounter Summary ---
Author Organization [place] Address [address] [place] [address] Care Team Providers Care Senior Front End Developer Name Role Phone Thang Diana [place] [facility] Unavailable Rain Galaviz PA-C Unavailable Tavia Wyatt MD Unavailable Unavailable Erica Farrell APRN HITCH TECHNICIAN Unavailable Rich Barrett MD Unavailable Neil Kent MD Unavailable Diana Desir Stanislav [facility] Unavailable [phone] Livan Sharif MD Unavailable Catherine Cm MD Unavailable + Valery Veronica PA-C Unavailable [phone] Brea Quinn SOFTWARE MAINTENANCE ENGINEER HITCH TECHNICIAN Unavailable Brea Quinn SOFTWARE MAINTENANCE ENGINEER HITCH TECHNICIAN Unavailable Jose Francisco Johnson MD Unavailable Alfonso Renteria MD Unavailable + [phone] Esha Grimm PA-C Primary Care Provider [phone] Radha Lomeli SOFTWARE MAINTENANCE ENGINEER HITCH TECHNICIAN Unavailable [phone] Jelena David OD Unavailable Pao Joseph RN Unavailable Unavailable Esha Grimm Adam PA-C Unavailable [phone] Valery Veronica PA-C Unavailable [phone] Rey Tay MD Unavailable Rokcy Zepeda DO Unavailable Philip Dumont MD Unavailable [phone] Meredith Carrera PA-C Unavailable [phone] Neil Kent MD Unavailable Juan Pablo Emmanuel MD Unavailable [phone] Audrey Waite PA-C Unavailable [phone] Encounter Details Date Type Department Care Team (Late st Contact Info) Description 08/31/2023 MyC Medical Advice [facility] [address]75 [facility] [address] [place] [address] Amalia Reyes, VJ Social History [...] 0 06/20/2023 [facility] - Occupational Stress [...] exercise at this level? 30 min 03/10/2023 [place] Depression Scale Answer Date Recorded [place] Depression Score 5 01/14/2021 Last EPDS Self [...] [facility] Spine and Neurosurgery [address] [facility] [address] [place] [address] Ebony Cid, [facility] 500 [place] [address] 03/27/2024 11:00 AM CDT Office Visit [facility] [place] 3305 [facility] [address] [place] [phone] Jelena David, 3[address] [facility] [place] [address] 03/29/2024 3:30 PM CDT Therapy Visit [facility] Rehabilitation Services [place] [address] [place] [address] [address] [place] [phone] Ingris Thompson, PT [facility] 516 [facility] 106 [place] [address] 04/05/2024 2:10 PM CDT Therapy Visit [facility] Rehabilitation Services [place] [address] [facility] [address] [place] [address] Ingris Thompson, PT [facility] 516 [facility] 106 [place], [place] 05[address]35 04/19/2024 2:45 PM CDT Office Visit [facility] 830 [place] [phone] Audrey Waite PA-C 420 [facility] [address], [facility] 603 [place], [place] 256615 05/08/2024 1:30 PM CDT Office Visit [facility] [address] [place] [address] Lauren Claudio PA-C [address] [place], [place] [phone] Esha Grimm PA-C [address] [place] [address] 06/21/2024 2:00 PM INDUSTRIAL SOCIOLOGIST Office Visit [facility] Neurology Clinics - [place] [address] [place] [address], [address] [place] [phone] [place] [address] [place] [address] Johnny Penn MD 3398 [place], [place] [phone] documented as of this encounter Visit Diagnoses Not on filedocumented in this encounter Additional Health Concerns Infection Onset Date Last Indicated Resolved Time Rule Out COVID-19 12/26/2023 12/26/2023 12/26/2023 9:50 AM CDT Assessment Noted Time PHQ-9 Depression Total Score: 4 06/20/20 23 8:40 AM INDUSTRIAL SOCIOLOGIST documented as of this encounter Care Teams Senior Front End Developer Relationship Specialty Start Date End Date Esha Grimm PA-C [address] [place] [address]47[address]83 PCP - General Family Medicine 05/04/23 Diana Desir, [facility] [address] [place] [address] Pharmacist Pharmacist 04/17/21 Rain Galaviz PA-C [address] [place] [address] [address] [place] [address] Physician Money Manager Dermatology 04/28/21 Tavia Wyatt MD [address] [place] [address] [place] [address] Dermatology 07/14/21 Erica Farrell APRN HITCH TECHNICIAN 6405 [facility] [address] [place] [address] Nurse Practitioner Cardiovascular Disease 09/09/21 Rich Barrett MD 516 [facility] 9A [place], [place] 745975 Physician Ophthalmology 01/21/22 Neil Kent MD 500 [place], [place] 332745 Dermatology 02/24/22 Diana [facility] 3033 [place] [address] Assigned MTM Pharmacist 04/07/22 Livan Sharif MD [address] [facility] [facility] [address] [place] [address] Cardiovascular Disease 05/14/22 Catherine Cm MD [address] [facility] [address] [place], [place] 971835 Cardiovascular Disease 07/21/22 Valery Veronica, PA-C 909 [place], [place] 982375 Physician Money Manager Dermatology 07/21/22 Brea Quinn APRN HITCH TECHNICIAN 500 [place], [place] 365295 Nurse Practitioner Dermatology 09/21/22 Brea Quinn APRN HITCH TECHNICIAN 6401 [place] [address] Assigned Surgical Provider 10/09/22 [place] [address] [facility] 300 [place] [address] Assigned Musculoskeletal Provider 10/09/22 Alfonso Renteria MD 5775 [facility] 200 [place] [address] Assigned Neuroscience Provider 04/02/23 Radha Lomeli APRN HITCH TECHNICIAN [address] [place] [address] Assigned Heart and Vascular Provider 05/28/23 Jelena David OD [address] [facility] [address] MD Ophthalmology 06/15/23 Pao Joseph, VJ Personal Advocate & Liaison (PAL) Nurse 08/01/23 11/07/23 Esha Grimm PA-C [address] [place] [phone] Assigned PCP 07/16/23 Valery Veronica PA-C [address] [place] [address] 881125 Physician Money Manager Dermatology 09/19/23 Rey Tay MD [address] [place] [address] 812845 Gastroenterology 09/20/23 Rocky Zepeda DO [address] [place] [address] 486235 Physician Gastroenterology 09/20/23 Philip Dumont MD [address] [place] [address] Physician Ophthalmology 09/22/23 Meredith Carrera PA-C [address] [place] [address] Assigned Gastroenterology Provider 11/01/23 Neil Kent MD [address] [address] Dermatology 11/02/23 [place] [address] [place] [address] [address] Neurological Surgery 12/26/23 Audrey Waite PAUcheC 500 [place] [address] Physician Money Manager Dermatology 02/28/24 documented as of this encounter
--- OUTSIDE RECORDS SUMMARY | 2024-03-23 15:59 | XMS_ITS | Encounter Summary ---
Author Organization [place] Address [address] [place] [address] Care Team Providers Care Plumber Cub Name Role Phone Thang Diana [place] [facility] Unavailable [phone] Rain Galaviz PA-C Unavailable Tavia Wyatt MD Unavailable Unavailable Erica Farrell APRN MATERIAL WORKER Unavailable Rich Barrett MD Unavailable Neil Kent MD Unavailable Diana Desir Stanislav [facility] Unavailable [phone] Livan Sharif MD Unavailable Catherine Cm MD Unavailable + Valery Veronica PA-C Unavailable [phone] Brea Quinn FABRIC NORMALIZER MATERIAL WORKER Unavailable Brea Quinn FABRIC NORMALIZER MATERIAL WORKER Unavailable [phone] Jose Francisco Johnson MD Unavailable Alfonso Renteria MD Unavailable + [phone] Esha Grimm PA-C Primary Care Provider Radha Lomeli FABRIC NORMALIZER MATERIAL WORKER Unavailable [phone] FrankieJelena OD Unavailable [phone] Pao Joseph RN Unavailable Unavailable Esha GrimmC Unavailable [phone] Valery Veronica PA-C Unavailable [phone] Rey Tay MD Unavailable Rocky Zepeda DO Unavailable Philip Dumont MD Unavailable [phone] Meredith CarreraC Unavailable [phone] Neil Kent MD Unavailable Juan Pablo Emmanuel MD Unavailable Audrey Waite-C Unavailable [phone] Reason for Visit * Reason Onset Date Comments Call Back 08/01/2023 Encounter Details Date Type Department Care Team (Late st Contact Info) Description 08/01/2023 Telephone [facility] [id number] [place] [address] Esha Grimm PA-C [address] [place] [address] Call Back Social History Tobacco Use [...] How often do you attend chur or protestant services? 1 to 4 times [...] Answer Date Recorded PHQ-2 Score 0 06/20/2023 [facility] [...] exercise at this level? 30 min 03/10/2023 Mancos Depression Scale Answer Date Recorded Mancos Depression Score 5 01/14/2021 Last EPDS Self [...] Grimm PA-C on 08/02/2023 at 7:49 AM TS EQUIPMENT SUPERVISOR * Telephone Encounter - Debbie Shahid - [...] we send this information to you in [facility] or would you prefer to receive a phone call?: No preference Okay to leave a detailed message?: Yes at Home number on file [phone] (home) TS EQUIPMENT SUPERVISOR documented in this encounter Plan of Treatment Upcoming Encounters Date Type Department Care Team (Late st Contact Info) Description 03/26/2024 11:20 AM CDT Office Visit [facility] 1747 [facility] 100 [place] [address] Ebony Cid APRN [facility] 500 [place], [place] 368875 03/27/2024 11:00 AM CDT Office Visit [facility] 3305 [facility] 160 [place] [address] Jelena David, [address] [place] [address] [place] [address] 03/29/2024 3:30 PM CDT Therapy Visit [address] [phone] Ingris Thompson, PT [facility] [address] [place] [address] 04/05/2024 2:10 PM CDT Therapy Visit [address] [phone] Ingris Thompson, PT [facility] [address] [place] [address] 04/19/2024 2:45 PM CDT Office Visit [address] [place] [address] Audrey Waite PA-C 420 [facility] B385, [facility] 603 [place], [place] [phone] 05/08/2024 1:30 PM CDT Office Visit [facility] [address] [place] [address] Lauren Claudio PA-C [address] [place] [address] Esha Grimm PA-C [id number] [place] [address] 06/21/2024 2:00 PM SPORTS EQUIPMENT SUPERVISOR Office Visit [facility] - [address], [address] [place] [address] [place] [address] [place] [address] Johnny Penn MD 6545 [place], [place] [phone] documented as of this encounter Visit Diagnoses Not on filedocumented in this encounter Additional Health Concerns Infection Onset Date Last Indicated Resolved Time Rule Out COVID-19 12/26/2023 12/26/2023 12/26/2023 9:50 AM CDT Assessment Noted Time PHQ-9 Depression Total Score: 4 06/20/20 23 8:40 AM SPORTS EQUIPMENT SUPERVISOR documented as of this encounter Care Teams Plumber Cub Relationship Specialty Start Date End Date Esha Grimm PA-C [id number] [place] [address] PCP - General Family Medicine 05/04/23 Diana Desir, [facility] [address] [place] [address] Pharmacist Pharmacist 04/17/21 Rain Galaviz PA-C [address] [place] [address] [address] [place] [address] Physician Catalyst Operator Chief Dermatology 04/28/21 Tavia Wyatt MD [address] [place] [address] [address] [place] [address] Dermatology 07/14/21 Erica Farrell APRN MATERIAL WORKER [address] [place] 472885 Nurse Practitioner Cardiovascular Disease 09/09/21 Rich Barrett MD [address] [address] Physician Ophthalmology 01/21/22 Neil Kent MD 500 [place], [place] 439685 Dermatology 02/24/22 Diana Desir, [facility] [address] [place] [address] Assigned MTM Pharmacist 04/07/22 Livan Sharif MD [address] [place] [id number] Cardiovascular Disease 05/14/22 Catherine Cm MD 6405 [facility] [address] [place] [address] Cardiovascular Disease 07/21/22 Valery Veronica, PAUcheC 909 [place] [address] Physician Catalyst Operator Chief Dermatology 07/21/22 Brea Quinn APRN MATERIAL WORKER 500 [place] [address] Nurse Practitioner Dermatology 09/21/22 Brea Quinn APRN MATERIAL WORKER 6401 [place] [address] Assigned Surgical Provider 10/09/22 [place] [address] [facility] 300 [place] [address] Assigned Musculoskeletal Provider 10/09/22 Alfonso Renteria MD 5775 [facility] 200 [place] [address] Assigned Neuroscience Provider 04/02/23 Radha Lomeli APRN MATERIAL WORKER 6405 [facility] [address] [place] [address] Assigned Heart and Vascular Provider 05/28/23 Jelena David OD [address] [facility] [address] Ophthalmology 06/15/23 Pao Joseph, RN Personal Advocate & Liaison (PAL) Nurse 08/01/23 11/07/23 Esha Grimm PA-C [address] [place] [address] Assigned PCP 07/16/23 Valery Veronica PA-C [address] [place] [address] 986005 Physician Catalyst Operator Chief Dermatology 09/19/23 Rey Tay MD [address] [place] [address] 980205 MD Gastroenterology 09/20/23 Rocky Zepeda DO [address] [place] [address] 270855 Physician Gastroenterology 09/20/23 Philip Dumont MD [address] [place] [address] 365665 Physician Ophthalmology 09/22/23 Meredith Carrera PA-C [address] [place] [address] Assigned Gastroenterology Provider 11/01/23 Neil Kent MD [address] [address] Dermatology 11/02/23 [place] [address] [place] [address] Neurological Surgery 12/26/23 Audrey Waite PA-C [address] [place] [address] Physician Catalyst Operator Chief Dermatology 02/28/24 documented as of this encounter
--- OUTSIDE RECORDS SUMMARY | 2024-03-23 15:59 | XMS_ITS | Encounter Summary ---
Author Organization [place] Address [address] [place] [address] Care Team Providers Care Oil Pump Station Operator Chief Name Role Phone Thang Diana [place] [facility] Unavailable Rain Galaviz PA-C Unavailable Tavia Wyatt MD Unavailable Unavailable Erica Farrell APRN CELLULOID TRIMMER Unavailable Rich Barrett MD Unavailable Neil Kent MD Unavailable Diana Desir Stanislav [facility] Unavailable [phone] Livan Sharif MD Unavailable Catherine Cm MD Unavailable + Valery Veronica PA-C Unavailable [phone] Brea Quinn CONFIGURATION MANAGER CELLULOID TRIMMER Unavailable Brea Quinn CONFIGURATION MANAGER CELLULOID TRIMMER Unavailable [phone] Jose Francisco Johnson MD Unavailable Alfonso Renteria MD Unavailable + [phone] Esha Grimm PA-C Primary Care Provider Radha Lomeli CONFIGURATION MANAGER CELLULOID TRIMMER Unavailable [phone] Jelena David OD Unavailable Pao Joseph RN Unavailable Unavailable Esha GrimmC Unavailable [phone] Valery Veronica PA-C Unavailable [phone] Rey Tay MD Unavailable Rocky Zepeda DO Unavailable Philip Dumont MD Unavailable [phone] Meredith CarreraC Unavailable [phone] Neil Kent MD Unavailable Juan Pablo Emmanuel MD Unavailable [phone] Audrey Waite-C Unavailable [phone] Reason for Visit * Reason Onset Date Comments Outreach 08/01/2023 Encounter Details Date Type Department Care Team (Late st Contact Info) Description 08/01/2023 [facility] Medical Advice [address] [address] Esha Grimm PA-C [address] [place] [address] Outreach Social History Tobacco Use Types [...] How often do you attend chur or orthodoxy services? 1 to 4 times [...] exercise at this level? 30 min 03/10/2023 Wakeman Depression Scale Answer Date Recorded Wakeman Depression Score 5 01/14/2021 Last EPDS Self [...] Esha Grimm PA-C- ANGEL LUIS. See pt's SpotMet messages. Routed to PCP Pao Marcos RN PAL (Patient Advocate Liaison) [facility] R POLARIZER documented in this encounter Plan of Treatment Upcoming Encounters Date Type Department Care Team (Late st Contact Info) Description 03/26/2024 11:20 AM CDT Office Visit [facility] Spine and Neurosurgery [address] [place] [address] Ebony Cid, CONFIGURATION MANAGER [facility] 500 [place], [place] 2[address]65 03/27/2024 11:00 AM CDT Office Visit [facility] [place] 3305 [facility] [address] [place] [phone] Jelena David, 3305 [facility] [place], [place] [address] 03/29/2024 3:30 PM CDT Therapy Visit [facility] [address] [place] [address] 160 [place] [phone] Ingris Thompson, PT [facility] [address] [place] [address] 106 [place], [place] [address]265 04/05/2024 2:10 PM CDT Therapy Visit [facility] [address] [place] [address] 160 [place] [phone] Ingris Thompson, PT [facility] [address] [place] [address] 106 [place] [address] 04/19/2024 2:45 PM CDT Office Visit [address] [phone] Audrey Waite PA-C 420 [facility] B385, [facility] 603 [place] [address] 05/08/2024 1:30 PM CDT Office Visit [facility] [address] [place] [address] Lauren Claudio PA-C [address] [place], [place] [phone] Esha Grimm PA-C [address] [place] [address] 06/21/2024 2:00 PM MOTOR POLARIZER Office Visit [facility] [place] 6545 [facility], [address] [place] [address] [place] [address] [place], [place] [phone] Johnny Penn MD [address] [place] 8[address]25 documented as of this encounter Visit Diagnoses Not on filedocumented in this encounter Additional Health Concerns Infection Onset Date Last Indicated Resolved Time Rule Out COVID-19 12/26/2023 12/26/2023 12/26/2023 9:50 AM CDT Assessment Noted Time PHQ-9 Depression Total Score: 4 06/20/20 23 8:40 AM MOTOR POLARIZER documented as of this encounter Care Teams Oil Pump Station Operator Chief Relationship Specialty Start Date End Date Esha Grimm PA-C [address] [place] [phone] PCP - General Family Medicine 05/04/23 Diana Desir, [facility] 3033 [place] [address] Pharmacist Pharmacist 04/17/21 Rain Galaviz PA-C [address] [place] [address] [address] [place] [address] Physician Ios Architect Dermatology 04/28/21 Tavia Wyatt MD [address] [place] [address] [address] [place] [address] Dermatology 07/14/21 Erica Farrell APRN CELLULOID TRIMMER [address] [place], [place] 2[address]5 Nurse Practitioner Cardiovascular Disease 09/09/21 Rich Barrett MD 516 [facility] [place], [place] [address] Physician Ophthalmology 01/21/22 Neil Kent MD 500 [place], [place] 332135 Dermatology 02/24/22 Diana Desir, [facility] 3033 [place], [place] 318706 Assigned [facility] Pharmacist 04/07/22 Livan Sharif MD [address], [facility] [address] [place], [place] 222455 Cardiovascular Disease 05/14/22 Catherine Cm MD 6405 [facility] [address] S [facility] [place], [place] 375985 Cardiovascular Disease 07/21/22 Valery Veronica, PA-C [address] [place] [address] 811645 Physician Ios Architect Dermatology 07/21/22 Brea Quinn APRN CELLULOID TRIMMER 500 [place], [place] 357125 Nurse Practitioner Dermatology 09/21/22 Brea Quinn APRN CELLULOID TRIMMER [address] [place] [address] [place] [address] Assigned Surgical Provider 10/09/22 [place] [address] [address] 300 [place] [address] Assigned Musculoskeletal Provider 10/09/22 Alfonso Renteria MD [address] [facility] 200 [place] [address] Assigned Neuroscience Provider 04/02/23 Radha Lomeli APRN CELLULOID TRIMMER [address] [place] [address] Assigned Heart and Vascular Provider 05/28/23 Jelena David OD [address] [facility] [place] [address] Ophthalmology 06/15/23 Pao Joseph, VJ Personal Advocate & Liaison (PAL) Nurse 08/01/23 11/07/23 Esha Grimm PA-C [address] [place] [phone] Assigned PCP 07/16/23 Valery Veronica PA-C [address] [place] [address] 446575 Physician Ios Architect Dermatology 09/19/23 Rey Tay MD [address] [place] [address]715 Gastroenterology 09/20/23 Rocky Zepeda DO [address] [place] [address] Physician Gastroenterology 09/20/23 Philip Dumont MD 516 [place] [address] Physician Ophthalmology 09/22/23 Meredith Carrera PA-C [address] [place] [address] Assigned Gastroenterology Provider 11/01/23 Neil Kent MD [address] [address] Dermatology 11/02/23 [place] [address] [place] [address] Neurological Surgery 12/26/23 Audrey Waite PA-C 500 [place] [address] Physician Ios Architect Dermatology 02/28/24 documented as of this encounter
--- OUTSIDE RECORDS SUMMARY | 2024-03-23 15:59 | XMS_ITS | Encounter Summary ---
Author Organization [place] Address [address] [place] [address] Care Team Providers Care Cable Installer Name Role Phone Thang Diana [place] [facility] Unavailable [phone] Rain Galaviz PA-C Unavailable Tavia Wyatt MD Unavailable Unavailable Erica Farrell APRN ROLLER MECHANIC Unavailable Rich Barrett MD Unavailable Neil Kent MD Unavailable Diana Desir Stanislav [facility] Unavailable [phone] Livan Sharif MD Unavailable Catherine Cm MD Unavailable + Valery Veronica PA-C Unavailable [phone] Brea Quinn SUPERINTENDENT INSTITUTION ROLLER MECHANIC Unavailable Brea Quinn SUPERINTENDENT INSTITUTION ROLLER MECHANIC Unavailable [phone] Jose Francisco Johnson MD Unavailable Alfonso Renteria MD Unavailable + [phone] Esha Grimm PA-C Primary Care Provider Radha Lomeli SUPERINTENDENT INSTITUTION ROLLER MECHANIC Unavailable [phone] FrankieJelena OD Unavailable Pao Joseph RN Unavailable Unavailable Wicho Grimmlincoln Medina PA-C Unavailable [phone] Valery Veronica PA-C Unavailable [phone] Rey Tay MD Unavailable Rocky Zepeda DO Unavailable Philip Dumont MD Unavailable [phone] Meredith Carrera PA-C Unavailable [phone] Neil Kent MD Unavailable Juan Pablo Emmanuel MD Unavailable [phone] Audrey Waite PA-C Unavailable [phone] Encounter Details Date Type Department Care Team (Late st Contact Info) Description 08/25/2023 MyC Medical Advice [facility] [address] [address] Marija Polanco RN Social History [...] PHQ-2 Score 0 06/20/2023 [facility] [...] exercise at this level? 30 min 03/10/2023 [place] Depression Scale Answer Date Recorded [place] Depression Score 5 01/14/2021 Last EPDS Self [...] [facility] 1747 [facility] [address] [place] [phone] Ebony Cid, [facility] 500 [place] [address] 03/27/2024 11:00 AM CDT Office Visit [facility] [place] 3305 [facility] [address] [place] [phone] Jelena David, 3305 [facility] [place] [address] 03/29/2024 3:30 PM CDT Therapy Visit [facility] [place] [address] [place] [address] [address] [place] [phone] Ingris Thompson, PT [facility] 516 [facility] 106 [place] [address] 04/05/2024 2:10 PM CDT Therapy Visit [facility] [place] [address] [facility] [address] [place] [address] Ingris Thompson, PT [facility] 516 [facility] 106 [place], [place] 377915 04/19/2024 2:45 PM CDT Office Visit [facility] 830 [place] [phone] Audrey Waite PA-C 420 [facility] [address]385, [facility] 603 [place], [place] [address] 05/08/2024 1:30 PM CDT Office Visit [facility] [address] [place] [address] Lauren Claudio PA-C [address] [place], [place] [phone] Esha Grimm PA-C [address] [place] [address] 06/21/2024 2:00 PM CENTRIFUGE OPERATOR Office Visit [facility] - [place] [address] [place] [address], [address] [place] [phone] [place] [address] [place] [address] Johnny Penn MD 6546 [place], [place] [phone] documented as of this encounter Visit Diagnoses Not on filedocumented in this encounter Additional Health Concerns Infection Onset Date Last Indicated Resolved Time Rule Out COVID-19 12/26/2023 12/26/2023 12/26/2023 9:50 AM CDT Assessment Noted Time PHQ-9 Depression Total Score: 4 06/20/20 23 8:40 AM CENTRIFUGE OPERATOR documented as of this encounter Care Teams Cable Installer Relationship Specialty Start Date End Date Esha Grimm PA-C [address] [place] [phone] PCP - General Family Medicine 05/04/23 Diana Desir, [facility] [address] [place], [place] [address] Pharmacist Pharmacist 04/17/21 Rain Galaviz PA-C [address] [place] [address] [address] [place] [address] Physician Hemmer Lockstitch Dermatology 04/28/21 Tavia Wyatt MD [address] [place] [address] DR [address] [facility] [place] [address] Dermatology 07/14/21 Erica Farrell APRN ROLLER MECHANIC 6405 [facility] [address] [place] [address] Nurse Practitioner Cardiovascular Disease 09/09/21 Rich Barrett MD 516 [facility] 9A [place], [place] 8[address] Physician Ophthalmology 01/21/22 Neil Kent MD 500 [place], [place] 262855 Dermatology 02/24/22 [facility] 3033 [place] [address] Assigned MTM Pharmacist 04/07/22 Livan Sharif MD [address], [facility] [address] [place] [address] Cardiovascular Disease 05/14/22 Catherine Cm MD [address] [facility] [address] [place], [place] 125415 Cardiovascular Disease 07/21/22 Valery Veronica, PA-C [address] [place] [address] 726215 Physician Hemmer Lockstitch Dermatology 07/21/22 Brea Quinn APRN ROLLER MECHANIC 500 [place], [place] 545965 Nurse Practitioner Dermatology 09/21/22 Brea Quinn APRN ROLLER MECHANIC 6401 [place] [address] Assigned Surgical Provider 10/09/22 [place] [address] [facility] 300 [place] [address] Assigned Musculoskeletal Provider 10/09/22 Alfonso Renteria MD 5775 [facility] 200 [place] [address] Assigned Neuroscience Provider 04/02/23 Radha Lomeli APRN ROLLER MECHANIC 6405 [facility] [address] [place] [address] Assigned Heart and Vascular Provider 05/28/23 Jelena David OD [address] [facility] [place] [address] MD Ophthalmology 06/15/23 Pao Joseph, VJ Personal Advocate & Liaison (PAL) Nurse 08/01/23 11/07/23 Esha Grimm PA-C [address] [place] [phone] Assigned PCP 07/16/23 Valery Veronica PA-C [address] [place] [address] 621125 Physician Hemmer Lockstitch Dermatology 09/19/23 Rey Tay MD [address] [place] [address] 262705 Gastroenterology 09/20/23 Rocky Zepeda DO [address] [place] [address] 901405 Physician Gastroenterology 09/20/23 Philip Dumont MD [address] [place] [address] Physician Ophthalmology 09/22/23 Meredith Carrera PA-C [address] [place] [address] Assigned Gastroenterology Provider 11/01/23 Neil Kent MD [address] [place] [address] Dermatology 11/02/23 [place] [address] [address] Neurological Surgery 12/26/23 Audrey Waite PA-C 500 [place] [address] Physician Hemmer Lockstitch Dermatology 02/28/24 documented as of this encounter
--- OUTSIDE RECORDS SUMMARY | 2024-03-23 15:59 | XMS_ITS | Encounter Summary ---
Author Organization [facility] Address [address] [place] [address] Care Team Providers Care Medical Concierge Name Role Phone Thang Diana [place] [facility] Unavailable Rain Galaviz PA-C Unavailable Tavia Wyatt MD Unavailable Unavailable Erica Farrell APRN ASSOCIATE ACCOUNT DIRECTOR Unavailable Rich Barrett MD Unavailable Neil Kent MD Unavailable Diana Desir Stanislav [facility] Unavailable [phone] Livan Sharif MD Unavailable Catherine Cm MD Unavailable + Valery Veronica PA-C Unavailable [phone] Brea Quinn DRUM TESTER ASSOCIATE ACCOUNT DIRECTOR Unavailable Brea Quinn DRUM TESTER ASSOCIATE ACCOUNT DIRECTOR Unavailable Jose Francisco Johnson MD Unavailable Alfonso Renteria MD Unavailable + [phone] Esha Grimm PA-C Primary Care Provider [phone] Radha Lomeli DRUM TESTER ASSOCIATE ACCOUNT DIRECTOR Unavailable [phone] FrankieJelena OD Unavailable Pao Joseph RN Unavailable Unavailable Wicho Grimmlincoln Medina PA-C Unavailable [phone] Valery Veronica PA-C Unavailable [phone] Rey Tay MD Unavailable Rocky Zepeda DO Unavailable Philip Dumont MD Unavailable [phone] Meredith Carrera PA-C Unavailable [phone] Neil Kent MD Unavailable Jaun Pablo Emmanuel MD Unavailable [phone] Audrey Waite PA-C Unavailable [phone] Encounter Details Date Type Department Care Team (Late st Contact Info) Description 08/25/2023 MyC Medical Advice [facility] [address] [address] Marija Polanco RN Social History [...] PHQ-2 Score 0 06/20/2023 [facility] - Occupational Stress [...] [facility] [address] [facility] [address] [place] [address] Ebony Cid, ARLENE [facility] 500 [place] [address] 03/27/2024 11:00 AM CDT Office Visit [facility] [place] [address] [facility] [address] [place] [phone] Jelena David, 3305 [facility] [place] [address] 03/29/2024 3:30 PM CDT Therapy Visit [facility] Rehabilitation Services [place] [address] [place] [address] [address] [place] [phone] Ingris Thompson, PT [facility] 516 [facility] 106 [place] [address] 04/05/2024 2:10 PM CDT Therapy Visit [facility] [place] [address] [facility] [address] [place] [address] Ingris Thompson, PT [facility] 516 [facility] 106 [place], [place] 8[address]105 04/19/2024 2:45 PM CDT Office Visit [facility] 830 [place] [phone] Audrey Waite PA-C 420 [facility] [address]385, [facility] 603 [place], [place] 7[address]35 05/08/2024 1:30 PM CDT Office Visit [facility] [address] [place] [address] Lauren Claudio PA-C [address] [place], [place] [phone] Esha Grimm PA-C [address] [place] [address] 06/21/2024 2:00 PM INTERFACE DEVELOPER Office Visit [facility] Neurology [facility]ics - [place] [address] [place] [address], [address] [place] [phone] [place] [address] [place] [address] Johnny Penn MD 6502 [place], [place] [phone] documented as of this encounter Visit Diagnoses Not on filedocumented in this encounter Additional Health Concerns Infection Onset Date Last Indicated Resolved Time Rule Out COVID-19 12/26/2023 12/26/2023 12/26/2023 9:50 AM CDT Assessment Noted Time PHQ-9 Depression Total Score: 4 06/20/20 23 8:40 AM INTERFACE DEVELOPER documented as of this encounter Care Teams Medical Concierge Relationship Specialty Start Date End Date Esha Grimm PA-C [address] [place] [address] PCP - General Family Medicine 05/04/23 Diana Desir, [facility] [address] [place], [place] [address] Pharmacist Pharmacist 04/17/21 Rain Galaviz PA-C [address] [place] [address] [address] [place] [address] Physician Blending Coordinator Dermatology 04/28/21 Tavia Wyatt MD [address] [place] [address] DR ARRIOLA [facility] [place] [address] Dermatology 07/14/21 Erica Farrell APRN ASSOCIATE ACCOUNT DIRECTOR [address] [facility] [address] [place] [address] Nurse Practitioner Cardiovascular Disease 09/09/21 Rich Barrett MD 516 [facility] [place], [place] 950265 Physician Ophthalmology 01/21/22 Neil Kent MD 500 [place], [place] 578275 Dermatology 02/24/22 [facility] 3033 [place] [address] Assigned MTM Pharmacist 04/07/22 Livan Sharif MD [address], [facility] [address] [place] [address] Cardiovascular Disease 05/14/22 Catherien Cm MD [address] [facility] [address] [place], [place] 890725 Cardiovascular Disease 07/21/22 Valery Veronica, PA-C [address] [place] [address] 972155 Physician Blending Coordinator Dermatology 07/21/22 Brea Quinn APRN ASSOCIATE ACCOUNT DIRECTOR 500 [place], [place] 787575 Nurse Practitioner Dermatology 09/21/22 Brea Quinn APRN ASSOCIATE ACCOUNT DIRECTOR 6401 [place] [address] Assigned Surgical Provider 10/09/22 [place] [address] [facility] 300 [place] [address] Assigned Musculoskeletal Provider 10/09/22 Alfonso Renteria MD 5775 [facility] 200 [place] [address] Assigned Neuroscience Provider 04/02/23 Radha Lomeli APRN ASSOCIATE ACCOUNT DIRECTOR 6405 [facility] [address] [place] [address] Assigned Heart and Vascular Provider 05/28/23 Jel[place] David OD [address] [facility] [place] [address] MD Ophthalmology 06/15/23 Pao Joseph, VJ Personal Advocate & Liaison (PAL) Nurse 08/01/23 11/07/23 Esha Grimm PA-C [address] [place] [phone] Assigned PCP 07/16/23 Valery Veronica PA-C [address] [place] [address] 292595 Physician Blending Coordinator Dermatology 09/19/23 Rey Tay MD [address] [place] [address] 242885 Gastroenterology 09/20/23 Rocky Zepeda DO [address] [place] [address] 273745 Physician Gastroenterology 09/20/23 Philip Dumont MD [address] [place] [address] Physician Ophthalmology 09/22/23 Meredith Carrera PA-C [address] [place] [address] Assigned Gastroenterology Provider 11/01/23 Neil Kent MD [address] [place] [address] Dermatology 11/02/23 [place] [address] [address] Neurological Surgery 12/26/23 Audrey Waite PA-C 500 [place] [address] Physician Blending Coordinator Dermatology 02/28/24 documented as of this encounter
--- OUTSIDE RECORDS SUMMARY | 2024-03-23 15:59 | XMS_ITS | Encounter Summary ---
Author Organization [facility] Address [address] [place] [address] Care Team Providers Care Senior Electronics Design Engineer Name Role Phone Thang Diana [place] [facility] Unavailable [phone] Rain Galaviz PA-C Unavailable Tavia Wyatt MD Unavailable Unavailable Erica Farrell APRN TELEPHONE QUOTATION CLERK Unavailable Rich Barrett MD Unavailable Neil Kent MD Unavailable Diana Desir Stanislav [facility] Unavailable [phone] Livan Sharif MD Unavailable Catherine Cm MD Unavailable + Valery Veronica PA-C Unavailable [phone] Brea Quinn REGISTER REPAIRER TELEPHONE QUOTATION CLERK Unavailable Brea Quinn REGISTER REPAIRER TELEPHONE QUOTATION CLERK Unavailable Jose Francisco Johnson MD Unavailable Alfonso Renteria MD Unavailable + [phone] Esha Grimm PA-C Primary Care Provider Radha Lomeli REGISTER REPAIRER TELEPHONE QUOTATION CLERK Unavailable [phone] FrankieJelena OD Unavailable Pao Joseph RN Unavailable Unavailable Jesus Grimmyllincoln Medina PA-C Unavailable [phone] Valery Veronica PA-C Unavailable [phone] Rey Tay MD Unavailable Rocky Zepeda DO Unavailable Philip Dumont MD Unavailable [phone] Meredith Carrera PA-C Unavailable Neli Kent MD Unavailable Juan Pablo Emmanuel MD Unavailable [phone] Audrey Waite PA-C Unavailable [phone] Encounter Details Date Type Department Care Team (Late st Contact Info) Description 08/25/2023 MyC Medical Advice [address] [address] [facility] 3033 [place] [address] Social History Tobacco Use Types Packs/Day Years [...] exercise at this level? 30 min 03/10/2023 [place] Depression Scale Answer Date Recorded [place] Depression Score 5 01/14/2021 Last EPDS Self [...] Office Visit [facility] Spine [facility] Neurosurgery [address] [place] [address] [address] [place] [address] Ebony Cid, A[facility]ENE [facility] 500 [place] [address] 03/27/2024 11:00 AM CDT Office Visit [facility] [place] [address] [place] [phone] Jelena David, OD 3305 [facility] [place] [address] 03/29/2024 3:30 PM CDT Therapy Visit [facility] Rehabilitation Services [address] [place] [phone] Ingris Thompson, PT [facility] 516 [facility] 106 [place] [address] 04/05/2024 2:10 PM CDT Therapy Visit [facility] Rehabilitation Services [place] [address] [facility] [address] [place] [phone] Ingris Thompson, PT [facility] 516 [facility] 106 [place], [place] 6[address]65 04/19/2024 2:45 PM CDT Office Visit [address] [phone] Audrey Waite PA-C 420 [facility] [address]385, [facility] 603 [place], [place] 160145 05/08/2024 1:30 PM CDT Office Visit [facility] [address] [place] [phone] Lauren Claudio PA-C [address] [place], [place] [phone] Esha Grimm PA-C [address] [place] [address] 06/21/2024 2:00 PM GLUER MACHINE OPERATOR Office Visit [facility]rology [facility]ics - [place] [address] [facility], [address] [place] [address] [place] [address] [place] [phone] Johnny Penn MD [address] [facility] [address] [place] [address] documented as of this encounter Visit Diagnoses Not on filedocumented in this encounter Additional Health Concerns Infection Onset Date Last Indicated Resolved Time Rule Out COVID-19 12/26/2023 12/26/2023 12/26/2023 9:50 AM CDT Assessment Noted Time PHQ-9 Depression Total Score: 4 06/20/20 23 8:40 AM GLUER MACHINE OPERATOR documented as of this encounter Care Teams Senior Electronics Design Engineer Relationship Specialty Start Date End Date Esha Grimm PA-C [address] [place] [address] PCP - General Family Medicine 05/04/23 Diana Desir, [facility] 30[address] [facility] [place] [address] Pharmacist Pharmacist 04/17/21 Rain Galaviz PA-C [address] [place] [address] [address] [place] [address] Physician Geological Technician Dermatology 04/28/21 Tavia Wyatt MD [address] [place] [address] [address] [place] [address] Dermatology 07/14/21 Erica Farrell APRN TELEPHONE QUOTATION CLERK [address] [facility] [address] [address] [place] [address] Nurse Practitioner Cardiovascular Disease 09/09/21 Rich Barrett MD [address] 768[address] Physician Ophthalmology 01/21/22 Neil Kent MD 500 [place], [place] [phone] Dermatology 02/24/22 Diana Desir, [facility] 3033 [place], [place] [phone] Assigned MTM Pharmacist 04/07/22 Livan Sharif MD 6405 [facility] [address] [place], [place] 816755 Cardiovascular Disease 05/14/22 Catherine Cm MD [address] [place] 1043800 [place], [place] 103785 Cardiovascular Disease 07/21/22 Valery Veronica, PA-C [address] [place] [address] 998475 Physician Geological Technician Dermatology 07/21/22 Brea Quinn APRN TELEPHONE QUOTATION CLERK [address] [place] [address] 997755 Nurse Practitioner Dermatology 09/21/22 Brea Quinn APRN TELEPHONE QUOTATION CLERK [address] [place] [address] 848192 Assigned Surgical Provider 10/09/22 [place] [address] [address] 035127 Assigned Musculoskeletal Provider 10/09/22 Alfonso Renteria MD 5775 [facility] 200 [place], [place] [phone] Assigned Neuroscience Provider 04/02/23 Radha Lomeli APRN TELEPHONE QUOTATION CLERK 6405 [facility] [address] [place], [place] 735915 Assigned Heart and Vascular Provider 05/28/23 Jelena David OD [address] [facility] [address] [place] [phone] Ophthalmology 06/15/23 Pao Joseph, VJ Personal Advocate & Liaison (PAL) Nurse 08/01/23 11/07/23 Esha Grimm PA-C [address] [place] [phone] Assigned PCP 07/16/23 Valery Veronica PA-C [address] [place] [address] 837375 Physician Geological Technician Dermatology 09/19/23 Rey Tay MD [address] [place] [address] 884215 Gastroenterology 09/20/23 Rocky Zepeda DO [address] [place] [address] 549765 Physician Gastroenterology 09/20/23 Philip Dumont MD [address] [place] [address] 001425 Physician Ophthalmology 09/22/23 Meredith Carrera PA-C [address] [place] [address] 874775 Assigned Gastroenterology Provider 11/01/23 Neil Kent MD [address] [address] Dermatology 11/02/23 [place] [address] [place] [address] 754457 Neurological Surgery 12/26/23 Audrey Waite PAUcheC 500 [place], [place] 044725 Physician Geological Technician Dermatology 02/28/24 documented as of this encounter
--- OUTSIDE RECORDS SUMMARY | 2024-03-23 15:59 | XMS_ITS | Encounter Summary ---
Author Organization [place] Address [address] [place] [address] Care Team Providers Care Extracorporeal Technician Name Role Phone Thang Diana [place] [facility] Unavailable [phone] Rain Galaviz PA-C Unavailable Tavia Wyatt MD Unavailable Unavailable Erica Farrell APRN PRECISION LENS GENERATOR Unavailable Rich Barrett MD Unavailable Neil Kent MD Unavailable Diana Desir Stanislav [facility] Unavailable [phone] Livan Sharif MD Unavailable Catherine Cm MD Unavailable + Valery Veronica PA-C Unavailable [phone] Brea Quinn SHIPFITTER PRECISION LENS GENERATOR Unavailable [phone] Brea Quinn SHIPFITTER PRECISION LENS GENERATOR Unavailable Jose Francisco Johnson MD Unavailable Alfonso eRnteria MD Unavailable + [phone] Esha Grimm PA-C Primary Care Provider Radha Lomeli SHIPFITTER PRECISION LENS GENERATOR Unavailable [phone] Jelena David OD Unavailable Pao Joseph RN Unavailable Unavailable Esha Grimm Adam PA-C Unavailable [phone] Valery Veronica PA-C Unavailable [phone] Rey Tay MD Unavailable Rocky Zepeda DO Unavailable Philip Dumont MD Unavailable [phone] Meredith Carrera PA-C Unavailable [phone] Neil Kent MD Unavailable Juan Pablo Emmanuel MD Unavailable [phone] Audrey Waite PA-C Unavailable [phone] Encounter Details Date Type Department Care Team (Late st Contact Info) Description 08/11/2023 MyC Medical Advice [address] [address] Pao Joseph, RN Social History [...] PHQ-2 Score 0 06/20/2023 [facility] - Occupational Stress [...] exercise at this level? 30 min 03/10/2023 [place] Depression Scale Answer Date Recorded [place] Depression Score 5 01/14/2021 Last EPDS [...] Description 03/26/2024 11:20 AM CDT Office Visit [facility] Spine and Neurosurgery [address] [place] [address] [address] [place] [address] Ebony Cid, A[facility] 500 [place] [address] 03/27/2024 11:00 AM CDT Office Visit [facility] [place] [address] [facility] [address] [place] [phone] Jelena David, 3305 [facility] [place] [address] 03/29/2024 3:30 PM CDT Therapy Visit [facility] Rehabilitation Services [place] [address] [place] [address] [address] [place] [phone] Ingris Thompson, PT [facility] 516 [facility] 106 [place] [address] 04/05/2024 2:10 PM CDT Therapy Visit [facility] Rehabilitation Services [place] [address] [facility] [address] [place] [phone] Ingris Thompson, PT [facility] 516 [facility] SE [facility] 106 [place], [place] 883285 04/19/2024 2:45 PM CDT Office Visit [facility] 830 [place] [phone] Audrey Waite PA-C 420 [facility] [address], [facility] 603 [place], [place] [address]55 05/08/2024 1:30 PM CDT Office Visit [facility] [address] [place] [address] Lauren Claudio PA-C [address] [place], [place] [phone] Esha Grimm PA-C [address] [place] [address] 06/21/2024 2:00 PM ANATOMICAL EMBALMER Office Visit [facility] Neurology [facility]ics - [place] [address] [place] [address], [address] [place] [address] [place] [address] [place] [address] Johnny Penn MD 0476 [place] [address] documented as of this encounter Visit Diagnoses Not on filedocumented in this encounter Additional Health Concerns Infection Onset Date Last Indicated Resolved Time Rule Out COVID-19 12/26/2023 12/26/2023 12/26/2023 9:50 AM CDT Assessment Noted Time PHQ-9 Depression Total Score: 4 06/20/20 23 8:40 AM ANATOMICAL EMBALMER documented as of this encounter Care Teams Extracorporeal Technician Relationship Specialty Start Date End Date Esha Grimm PA-C [address] [place] [address]47[address]83 PCP - General Family Medicine 05/04/23 Diana Desir, [facility] [address] [place] [address] Pharmacist Pharmacist 04/17/21 Rain Galaviz PA-C [address] [place] [address] [address] [facility] [place] [place] [address] Physician Supply Planner Dermatology 04/28/21 Tavia Wyatt MD [address] [place] [address] [address] [place] [place] [address] Dermatology 07/14/21 Erica Farrell APRN PRECISION LENS GENERATOR [address] [facility] [address] [place] [address] Nurse Practitioner Cardiovascular Disease 09/09/21 Rich Barrett MD 516 [facility], [address] 3548[address] Physician Ophthalmology 01/21/22 Neil Kent MD 500 [place] [address] Dermatology 02/24/22 Diana Desir, [facility] 3033 [place] [address] Assigned MTM Pharmacist 04/07/22 Livan Sharif MD [address], [facility] [address] [place] [address] Cardiovascular Disease 05/14/22 Catherine Cm MD [address] [facility] [address] [place], [place] 802165 Cardiovascular Disease 07/21/22 Valery Veronica, PA-C 909 [place] [address] Physician Supply Planner Dermatology 07/21/22 Brea Quinn APRN PRECISION LENS GENERATOR 500 [place] [address] Nurse Practitioner Dermatology 09/21/22 Brea Quinn APRN PRECISION LENS GENERATOR 6401 [place] [address] Assigned Surgical Provider 10/09/22 [place] [address] [facility] 300 [place] [address] Assigned Musculoskeletal Provider 10/09/22 Alfonso Renteria MD 5775 [facility] 200 [place] [address] Assigned Neuroscience Provider 04/02/23 Radha Lomeli APRN PRECISION LENS GENERATOR 6405 [facility] [address] [place] [address] Assigned Heart and Vascular Provider 05/28/23 Jelena David OD [address] [facility] [place] [address] MD Ophthalmology 06/15/23 Pao Joseph, VJ Personal Advocate & Liaison (PAL) Nurse 08/01/23 11/07/23 Esha Grimm PA-C [address] [place] [phone] Assigned PCP 07/16/23 Valery Veronica PA-C [address] [place] [address] 173265 Physician Supply Planner Dermatology 09/19/23 Rey Tay MD [address] [place] [address] 601835 Gastroenterology 09/20/23 Rocky Zepeda DO [address] [place] [address] 218575 Physician Gastroenterology 09/20/23 Philip Dumont MD [address] [place] [address] 144865 Physician Ophthalmology 09/22/23 Meredith Carrera PA-C [address] [place] [address] 475525 Assigned Gastroenterology Provider 11/01/23 Neil Kent MD [address] [address] Dermatology 11/02/23 [place] [address] [address] Neurological Surgery 12/26/23 Audrey Waite, PA-C 500 [place] [address] Physician Supply Planner Dermatology 02/28/24 documented as of this encounter
--- OUTSIDE RECORDS SUMMARY | 2024-03-23 15:59 | XMS_ITS | Encounter Summary ---
Author Organization [place] Address [address] [place] [address] Care Team Providers Care Gas Station Attendant Name Role Phone Thang Diana [place] [facility] Unavailable Rain Galaviz PA-C Unavailable Tavia Wyatt MD Unavailable Unavailable Erica Farrell APRN REIMBURSEMENT REPRESENTATIVE Unavailable Rich Barrett MD Unavailable Neil Kent MD Unavailable Diana Desir Stanislav [facility] Unavailable [phone] Livan Sharif MD Unavailable Catherine Cm MD Unavailable + Valery Veronica PA-C Unavailable [phone] Brea Quinn CUT ROLL MACHINE OPERATOR REIMBURSEMENT REPRESENTATIVE Unavailable Brea Quinn CUT ROLL MACHINE OPERATOR REIMBURSEMENT REPRESENTATIVE Unavailable Jose Francisco Johnson MD Unavailable Alfonso Renteria MD Unavailable + [phone] Esha Grimm PA-C Primary Care Provider [phone] Radha Lomeli CUT ROLL MACHINE OPERATOR REIMBURSEMENT REPRESENTATIVE Unavailable [phone] Jelena David OD Unavailable Pao Joseph RN Unavailable Unavailable Esha GrimmC Unavailable [phone] Valery Veronica PA-C Unavailable [phone] Rey Tay MD Unavailable Rocky Zepeda DO Unavailable Philip Dumont MD Unavailable [phone] Meredith Carrera PA-C Unavailable [phone] Neil Kent MD Unavailable Juan Pablo Emmaneul MD Unavailable [phone] Audrey Waite PA-C Unavailable [phone] Encounter Details Date Type Department Care Team (Late st Contact Info) Description 08/10/2023 MyC Medical Advice [address] [address] Esha Grimm PA-C [id number] [place] [address] Social History Tobacco Use Types Packs/Day [...] PHQ-2 Score 0 06/20/2023 [facility] - Occupational Stress Questionnaire Answer Date [...] at this level? 30 min 03/10/2023 [place] Depression Scale Answer Date Recorded [place] Depression Score 5 01/14/2021 Last EPDS Self [...] Asiya Reddy RN - 08/10/2023 11:40 AM TAI CHI INSTRUCTOR Esha- see Kibint message below. Patient did call to see if E-Visit would be addressed today. No immediate concern at this time. Advised UC if needed sooner. Asiya Reddy RN CHI INSTRUCTOR documented in this encounter Plan of Treatment Upcoming Encounters Date Type Department Care Team (Late st Contact Info) Description 03/26/2024 11:20 AM CDT Office Visit [facility] Spine and Neurosurgery [address] [place] [address] Ebony Cid, [facility] 500 [place] [address] 03/27/2024 11:00 AM CDT Office Visit [address] [place] [phone] Jelena David, OD [address] [facility] [place] [address] 03/29/2024 3:30 PM CDT Therapy Visit [facility] [address] [place] [address] 160 [place] [phone] Ingris Thompson, PT [facility] [address] [place] [address] 106 [place] [address] 04/05/2024 2:10 PM CDT Therapy Visit [facility] [address] [place] [address] 160 [place] [phone] Ingris Thompson, PT [facility] [address] [place] [address] 106 [place] [address] 04/19/2024 2:45 PM CDT Office Visit [address] [phone] Audrey Waite PA-C 420 [facility] [address]385, [facility] 603 [place] [address] 05/08/2024 1:30 PM CDT Office Visit [facility] [address] [place] [phone] Lauren Claudio PA-C [address] [place], [place] [phone] Esha Grimm PA-C [address] [place] [phone] 06/21/2024 2:00 PM TAI CHI INSTRUCTOR Office Visit [facility] - [place] [address] [facility], [address] [place] [address] [place] [address] [place] [address] Johnny Penn MD [address] [facility] [place] 711375 documented as of this encounter Visit Diagnoses Not on filedocumented in this encounter Additional Health Concerns Infection Onset Date Last Indicated Resolved Time Rule Out COVID-19 12/26/2023 12/26/2023 12/26/2023 9:50 AM CDT Assessment Noted Time PHQ-9 Depression Total Score: 4 06/20/20 23 8:40 AM TAI CHI INSTRUCTOR documented as of this encounter Care Teams Gas Station Attendant Relationship Specialty Start Date End Date Esha Grimm PA-C [address] [place] [address] PCP - General Family Medicine 05/04/23 Diana Desir, [facility] 3033 [place] [address] Pharmacist Pharmacist 04/17/21 Rain Galaviz PA-C [address] [place] [address] [address] [place] [address] Physician Print Binding Worker Dermatology 04/28/21 Tavia Wyatt MD [address] [place] [address] [address] [place] [address] Dermatology 07/14/21 Erica Farrell APRN REIMBURSEMENT REPRESENTATIVE [address] [place] [address] Nurse Practitioner Cardiovascular Disease 09/09/21 Rich Barrett MD 516 [facility] 9A [place], [place] 584895 Physician Ophthalmology 01/21/22 Neil Kent MD 500 [place], [place] 353835 Dermatology 02/24/22 Diana Desir, [facility] 3033 [place], [place] 904196 Assigned [place] Pharmacist 04/07/22 Livan Sharif MD [address] [facility]00 [place], [place] 433635 Cardiovascular Disease 05/14/22 Catherine Cm MD [address] 102085 Cardiovascular Disease 07/21/22 Valery Veronica, PA-C 909 [place], [place] 130425 Physician Print Binding Worker Dermatology 07/21/22 Brea Quinn APRN REIMBURSEMENT REPRESENTATIVE 500 [place], [place] 221405 Nurse Practitioner Dermatology 09/21/22 Brea Quinn APRN REIMBURSEMENT REPRESENTATIVE 6401 [facility] [place] 059022 Assigned Surgical Provider 10/09/22 [place] [address] [facility] 300 [place] [address] Assigned Musculoskeletal Provider 10/09/22 Alfonso Renteria MD [address] [facility] 200 [place], [place] 734376 Assigned Neuroscience Provider 04/02/23 Radha Lomeli APRN REIMBURSEMENT REPRESENTATIVE 6405 [facility] [address] [place] 385065 Assigned Heart and Vascular Provider 05/28/23 Jelena David OD [address] [facility] [address] [place] [phone] Ophthalmology 06/15/23 Pao Joseph, VJ Personal Advocate & Liaison (PAL) Nurse 08/01/23 11/07/23 Esha Grimm PA-C [address] [place] [address]-15607283 Assigned PCP 07/16/23 Valery Veronica PA-C [address] [place] [address] 910005 Physician Print Binding Worker Dermatology 09/19/23 Rey Tay MD [address] [place] [address] [id number] Gastroenterology 09/20/23 Rocky Zepeda DO [address] [place] [address] [phone] Physician Gastroenterology 09/20/23 Philip Dumont MD 516 [place], [place] 245755 Physician Ophthalmology 09/22/23 Meredith Carrera PA-C [address] [place] [address] 434565 Assigned Gastroenterology Provider 11/01/23 Neil Kent MD [address] 927740 MD Dermatology 11/02/23 [place] [address] [place] [address] 299547 Neurological Surgery 12/26/23 Audrey Waite PA-C 500 [place], [place] 404795 Physician Print Binding Worker Dermatology 02/28/24 documented as of this encounter
--- OUTSIDE RECORDS SUMMARY | 2024-03-23 16:00 | XMS_ITS | Encounter Summary ---
Author Organization [place] Address [address] [place] [address] Care Team Providers Care Assembly Line Machine Operator Name Role Phone Thang Diana [place] [facility] Unavailable [phone] Rain Galaviz-C Unavailable [phone] Tavia Wyatt MD Unavailable Unavailable Erica Farrell APRN SPEECH THERAPY TEACHER Unavailable Rich Barrett MD Unavailable Neil Kent MD Unavailable Diana Desir [facility] Unavailable Livan Sharif MD Unavailable Catherine Cm MD Unavailable + Valery Veronica-C Unavailable [phone] Brea Quinn EMT B SPEECH THERAPY TEACHER Unavailable Brea Quinn EMT B SPEECH THERAPY TEACHER Unavailable Jose Francisco Johnson MD Unavailable Sydnie Martinez RN Unavailable Unavailable Alfonso Renteria MD Unavailable + [phone] Esha Grimm PA-C Primary Care Provider Cheng Todd-C Unavailable Radha Lomeli APRN SPEECH THERAPY TEACHER Unavailable [phone] Jelena David OD Unavailable Pao Joseph RN Unavailable Unavailable Esha GrimmC Unavailable [phone] Valery Veronica PA-C Unavailable [phone] Rey Tay MD Unavailable Rocky Zepeda DO Unavailable Philip Dumont MD Unavailable [phone] Meredith Carrera PA-C Unavailable Neil Kent MD Unavailable Juan Pablo Emmanuel MD Unavailable Audrey Waite PA-C Unavailable [phone] Reason for Visit * Reason Onset Date Comments Appointment 06/17/2023 Encounter Details Date Type Department Care Team (Late st Contact Info) Description 06/17/[address] [address] Esha Grimm PA-C [id number] [place] [address] Appointment Social History Tobacco Use Types [...] you attend [employer] [facility] [facility]? 1 to 4 times [...] Score 0 06/20/2023 [facility] - Occupational Stress Questionnaire [...] exercise at this level? 30 min 03/10/2023 [place] Depression Scale Answer Date Recorded [place] Depression Score 5 01/14/2021 Last EPDS Self [...] they are all full today Lulu Day/ Software Engineering Analyst OPERATOR * Telephone Encounter - Rosio Eller - [...] we send this information to you in [employer] or would you prefer to receive a phone call?: Patient would prefer a phone call Okay to leave a detailed message?: Yes at Home number on file [phone] (home) Call taken on 06/17/2023 at 7:13 AM by Rosio Eller OPERATOR documented in this encounter Plan of Treatment Upcoming Encounters Date Type Department Care Team (Late st Contact Info) Description 03/26/2024 11:20 AM CDT Office Visit [facility] Spine and Neurosurgery 1747 [facility] 100 [place] [address] Ebony Cid, EMT B [facility] 500 [place] [address] 03/27/2024 11:00 AM CDT Office Visit [facility] [address] [phone] Jelena David, 3305 [facility] [place] [address] 03/29/2024 3:30 PM CDT Therapy Visit [address] [phone] [facility]gris Thompson[facility] PT [facility] [address] [place] [address] 04/05/2024 2:10 PM CDT Therapy Visit [address] [phone] Ingris Thompson, PT [facility] [address] [place] [address] 04/19/2024 2:45 PM CDT Office Visit [address] [phone] Audrey Waite PA-C [address], [facility] 603 [place], [place] 710715 05/08/2024 1:30 PM CDT Office Visit [facility] [address] [place] [address] Lauren Claudio PA-C [address] [place] [address] Esha Grimm PA-C [address] [place] [address] 06/21/2024 2:00 PM TOOL OPERATOR Office Visit [facility] Neurology [facility] [address], [address] [place] [phone] [place] [address] [place] [address] Johnny Penn MD 6545 [place], [place] [phone] documented as of this encounter Visit Diagnoses Not on filedocumented in this encounter Additional Health Concerns Infection Onset Date Last Indicated Resolved Time Rule Out COVID-19 12/26/2023 12/26/2023 12/26/2023 9:50 AM CDT Assessment Noted Time PHQ-9 Depression Total Score: 6 05/16/20 9:29 AM TOOL OPERATOR documented as of this encounter Care Teams Assembly Line Machine Operator Relationship Specialty Start Date End Date Esha Grimm PA-C [id number] [place] [address] PCP - General Family Medicine 05/04/23 Diana Desir, [facility] [address] [place] [address] Pharmacist Pharmacist 04/17/21 Rain Galaviz PA-C [address] [place] [address] [address] [place] [address] Physician Powderman Dermatology 04/28/21 Tavia Wyatt MD [address] [place] [address] [address] [place] [address] Dermatology 07/14/21 Erica Farrell APRN SPEECH THERAPY TEACHER [address] [place], [place] 262525 Nurse Practitioner Cardiovascular Disease 09/09/21 Rich Barrett MD [address] [place] [address] 9A [place], [place] 6[address]275 Physician Ophthalmology 01/21/22 Neil Kent MD 500 [place] [address] Dermatology 02/24/22 Diana Desir, [facility] 3033 [place] [address] Assigned MTM Pharmacist 04/07/22 Livan Sharif MD [address], [facility] [address] [place] [address] Cardiovascular Disease 05/14/22 Catherine Cm MD [address] [place] [address] Cardiovascular Disease 07/21/22 Valery Veronica PA-C 909 [place] [address] Physician Powderman Dermatology 07/21/22 Brea Quinn APRN SPEECH THERAPY TEACHER [address] [place] [address] Nurse Practitioner Dermatology 09/21/22 Brea Quinn APRN SPEECH THERAPY TEACHER 6401 [place] [address] Assigned Surgical Provider 10/09/22 [place] [address] [facility] 300 [place] [address] Assigned Musculoskeletal Provider 10/09/22 Sydnie Martinez RN Personal Advocate & Liaison (PAL) Family Medicine 03/28/23 07/31/23 Alfonso Renteria MD 5775 [facility] 200 [place] [address] Assigned Neuroscience Provider 04/02/23 Cheng oTdd PA-C [address] [place] [address] [id number] Assigned PCP 04/30/23 07/15/23 Radha Lomeli APRN SPEECH THERAPY TEACHER 6405 [facility] [address] [place] [address] Assigned Heart and Vascular Provider 05/28/23 Jelena David OD [address] [facility] [place] [address] MD Ophthalmology 06/15/23 Pao Joseph, RN Personal Advocate & Liaison (PAL) Nurse 08/01/23 11/07/23 Esha Grimm PA-C [address] [place] [phone] Assigned PCP 07/16/23 Valery Veronica PA-C [address] [place] [address] 665005 Physician Powderman Dermatology 09/19/23 Rey Tay MD [address] [place] [address] 746655 MD Gastroenterology 09/20/23 Rocky Zepeda DO [address] [place] [address] 288005 Physician Gastroenterology 09/20/23 Philip Dumont MD [address] [place] [address] 732825 Physician Ophthalmology 09/22/23 Meredith Carrera PA-C [address] [place] [address] 695585 Assigned Gastroenterology Provider 11/01/23 Neil Kent MD [address] [address] Dermatology 11/02/23 [place] [address] [place] [address] 413737 Neurological Surgery 12/26/23 Audrey Waite PA-C 500 [place], [place] 255435 Physician Powderman Dermatology 02/28/24 documented as of this encounter
--- OUTSIDE RECORDS SUMMARY | 2024-03-23 16:00 | XMS_ITS | Encounter Summary ---
Author Organization [place] Address [address] [place] [address] Care Team Providers Care Manager Farm Name Role Phone Marija Edgra APRN MOLDING FITTER Primary Care Provider + Marija Edgar APRN MOLDING FITTER Unavailable [phone] Diana Desir [facility] Unavailable [phone] Rain Galaviz PA-C Unavailable [phone] Tavia Wyatt MD Unavailable Unavailable Erica Farrell APRN MOLDING FITTER Unavailable Rich Barrett MD Unavailable [phone] Neil Kent MD Unavailable Diana Desir [facility] Unavailable [phone] Livan Sharif MD Unavailable Catherine Cm MD Unavailable + Valery Veronica PA-C Unavailable [phone] Brea Quinn APRN MOLDING FITTER Unavailable [phone] Brea Quinn APRN MOLDING FITTER Unavailable [phone] Jose Francisco Johnson MD Unavailable Catherine Cm MD Unavailable + Sydnie Martinez RN Unavailable Unavailable Alfonso Renteria MD Unavailable [phone] Esha Grimm PA-C Primary Care Provider Cheng Todd PA-C Unavailable [phone] Radha Lomeli APRN MOLDING FITTER Unavailable Jelena David OD Unavailable [phone] Pao Joseph RN Unavailable Unavailable Esha Grimm-C Unavailable [phone] Valery Veronica PA-C Unavailable [phone] Rey Tay MD Unavailable Rocky Zepeda DO Unavailable Philip Dumont MD Unavailable Meredith Carrera PA-C Unavailable [phone] Neil Kent MD Unavailable Juan Pablo Emmanuel MD Unavailable Reason for Visit * Reason Onset Date Comments Forms 04/13/2023 DMV (LOC) Encounter Details Date Type Department Care Team (Late st Contact Info) Description 04/13/2023 Telephone [facility] 5775 [facility], [address] [place] [address] Alfonso Renteria MD 5765 [facility] [address] 200 [place] [address] Forms (DMV (LOC)) Social History [...] Answer Date Recorded PHQ-2 Score 0 10/25/2023 [facility] - Occupational Stress Questionnaire Answer Date [...] exercise at this level? 30 min 03/10/2023 [place] Depression Scale Answer Date Recorded [place] Depression Score 5 01/14/2021 Last EPDS Self [...] are unable to fill this out because [place] [employer] will not accept it. It needs to be in your hand writing. The last one filed was 12/2021 andit said over 3 years ago. Notes in chart said last seizure July 2018. If that helps or if you had a more recent seizure please put that date in. We will watch for your updated form. Our fax number [phone]. Thank you. * Telephone Encounter - Magdalena Anne CMA - 04/13/2023 3:20 PM CDT Received DMV (LOC) Form to be completed. Form saved to [employer], encounter routed. Magdalena Anne CMA documented in this encounter Plan of Treatment Upcoming Encounters Date Type Department Care Team (Late st Contact Info) Description 03/26/2024 11:20 AM CDT Office Visit [facility] Spine and Neurosurgery [address] [place] [address] [address] [place] [address] Ebony Cid, [facility] 500 [place] [address] 03/27/2024 11:00 AM CDT Office Visit [facility] 3305 [facility] [address] [place] [phone] Jelena David, OD 3305 [facility] [place] [address] 03/29/2024 3:30 PM CDT Therapy Visit [facility] [address] [place] [address] 160 [place] [phone] Ingris Thompson, PT [facility] [address] [place] [address] 106 [place] [address] 04/05/2024 2:10 PM CDT Therapy Visit [facility] [address] [place] [address] 160 [place] [phone] Ingris Thompson, PT [facility] [address] [place] [address] 106 [place], [place] 057385 04/19/2024 2:45 PM CDT Office Visit [address] [phone] Audrey Waite PA-C 420 [facility] [address], [facility] 603 [place] [address] 05/08/2024 1:30 PM CDT Office Visit [facility] [address] [place] [phone] Lauren Claudio PA-C [address] [place], [place] [phone] Esha Grimm PA-C [address] [place] [address] 06/21/2024 2:00 PM TAXI TRUCK DRIVER Office Visit [facility] Neurology Clinics [address] [place] [phone] [place] [address] [place] [address] Johnny Penn MD 6580 [facility] [place] [address] documented as of this encounter Visit Diagnoses Not on filedocumented in this encounter Additional Health Concerns Infection Onset Date Last Indicated Resolved Time Rule Out COVID-19 12/26/2023 12/26/2023 12/26/2023 9:50 AM CDT Assessment Noted Time PHQ-9 Depression Total Score: 5 03/10/20 6:49 AM CDT documented as of this encounter Care Teams Manager Farm Relationship Specialty Start Date End Date Marija Edgar APRN MOLDING FITTER PCP - General Nurse Practitioner 04/30/20 04/14/23 Esha Grimm PA-C [address] [place] [address] PCP - General Family Medicine 05/04/23 Marija Edgar APRN MOLDING FITTER Assigned PCP 06/08/20 04/29/23 Diana Desir, [facility] [address] [place] [address] Pharmacist Pharmacist 04/17/21 Rain Galaviz PA-C [address] [place] [address] [address] [place] [id number] Physician Client Development Director Dermatology 04/28/21 Tavia Wyatt MD [address] [place] [address] DR [address] [facility] [place] [address] Dermatology 07/14/21 Erica Farrell APRN MOLDING FITTER [address] [place], [place] 5[address]15 Nurse Practitioner Cardiovascular Disease 09/09/21 Rich Barrett MD 516 [facility] 9A [place] [address] Physician Ophthalmology 01/21/22 Neil Kent MD 500 [place] [address] Dermatology 02/24/22 [facility] 3033 [place], [place] 242766 Assigned MTM Pharmacist 04/07/22 Livan Sharif MD [address] [place] [address] Cardiovascular Disease 05/14/22 Catherine Cm MD [address] [place] 488[address]95 Cardiovascular Disease 07/21/22 Valery Veronica, PA-C [address] [place] [address] 484865 Physician Client Development Director Dermatology 07/21/22 Brea Quinn APRN MOLDING FITTER 500 [place] [address] Nurse Practitioner Dermatology 09/21/22 Brea Quinn APRN MOLDING FITTER 6401 [facility] [place] [address] Assigned Surgical Provider 10/09/22 [place] [address] [place] [address] Assigned Musculoskeletal Provider 10/09/22 Catherine Cm MD [address] [facility] [address] [place] [address] Assigned Heart and Vascular Provider 11/13/22 05/27/23 Sydnie Martinez RN Personal Advocate & Liaison (PAL) Family Medicine 03/28/23 07/31/23 Alfonso Renteria MD 5775 [facility] 200 [place] [address] Assigned Neuroscience Provider 04/02/23 Cheng Todd PA-C [address] [place] [address] [id number] Assigned PCP 04/30/23 07/15/23 Radha Lomeli APRN MOLDING FITTER [address] [facility] [address] [place] 424415 Assigned Heart and Vascular Provider 05/28/23 Jelena David OD 3305 [facility] [place] [address] MD Ophthalmology 06/15/23 Pao Joseph, RN Personal Advocate & Liaison (PAL) Nurse 08/01/23 11/07/23 Esha Grimm PA-C [address] [place] [address] Assigned PCP 07/16/23 Valery Veronica PA-C [address] [place] [address] Physician Client Development Director Dermatology 09/19/23 Rey Tay MD [address] [place] [address] MD Gastroenterology 09/20/23 Rocky Zepeda DO [address] [place] [address] 589145 Physician Gastroenterology 09/20/23 Philip Dumont MD [address] [place] [address] 846255 Physician Ophthalmology 09/22/23 Meredith Carrera PA-C [address] [place] [address] 833395 Assigned Gastroenterology Provider 11/01/23 Neil Kent MD [address] 412410 Dermatology 11/02/23 [place] [address] [address] [facility] [place] [address] Neurological Surgery 12/26/23 documented as of this encounter
--- OUTSIDE RECORDS SUMMARY | 2024-03-23 16:00 | XMS_ITS | Encounter Summary ---
Author Organization [facility] Address [address] [place] [address] Care Team Providers Care Director Of Corporate Sales Name Role Phone Marija Edgar ARLENE MANAGER BANQUET Unavailable [phone] Diana Desir [facility] Unavailable Rain Galaviz PA-C Unavailable Tavia Wyatt MD Unavailable Unavailable Erica Farrell APRN MANAGER BANQUET Unavailable Rich Barrett MD Unavailable [phone] Neil Kent MD Unavailable Diana Desir [facility] Unavailable [phone] Livan Sharif MD Unavailable Catherine Cm MD Unavailable + Valery Veronica PA-C Unavailable [phone] Brea Quinn APRN MANAGER BANQUET Unavailable [phone] Brea Quinn CABINET PROFESSIONAL MANAGER BANQUET Unavailable [phone] Jose Francisco Johnson MD Unavailable Catherine mC MD Unavailable + Sydnie Martinez RN Unavailable Unavailable Alfonso Renteria MD Unavailable [phone] Esha Grimm PA-C Primary Care Provider Cheng Todd PA-C Unavailable Radha Lomeli APRN MANAGER BANQUET Unavailable [phone] Jelena David OD Unavailable [phone] Pao Joseph RN Unavailable Unavailable Esha Grimm PA-C Unavailable [phone] Valery Veronica PA-C Unavailable Rey Tay MD Unavailable Rocky Zepeda DO Unavailable Philip Dumont MD Unavailable [phone] Meredith Carrera PA-C Unavailable [phone] Neil Kent MD Unavailable Juan Pablo Emmanuel MD Unavailable [phone] Audrey Waite PA-C Unavailable [phone] Encounter Details Date Type Department Care Team (Late st Contact Info) Description 04/18/2023 [facility] Gastroenterology Clinic [address] [address] Mary Calvo Social History Tobacco [...] How often do you attend [facility] or nondenominational services? 1 to 4 [...] Answer Date Recorded PHQ-2 Score 0 03/10/2023 [facility] - [facility]ational [...] exercise at this level? 30 min 03/10/2023 [place] Depression Scale Answer Date Recorded [place] Depression Score 5 01/14/2021 Last EPDS Self [...] [facility] Spine and Neurosurgery [address] [place] [phone] Ebony Cid, ARLENE [facility] 500 [place] [address] 03/27/2024 11:00 AM CDT Office Visit [facility] [place] [address] [facility] [address] [place] [phone] Jelena David, 3305 [facility] [place] [address] 03/29/2024 3:30 PM CDT Therapy Visit [facility] [address] [place] [address] 160 [place] [phone] Ingris Thompson, PT [facility] [address] [place] [address] 106 [place], [place] 114585 04/05/2024 2:10 PM CDT Therapy Visit [facility] [address] [place] [address] 160 [place] [phone] Ingris Thompson, PT [facility] [address] [place] [address] 106 [place] [address] 04/19/2024 2:45 PM CDT Office Visit [address] [phone] Audrey Waite PA-C 420 [facility] [address]385, [facility] 603 [place], [place] 394715 05/08/2024 1:30 PM CDT Office Visit [facility] [address] [place] [address] Lauren Claudio PA-C [address] [place] [address] Esha Grimm PA-C [address] [place] [address] 06/21/2024 2:00 PM PARAFFIN MACHINE OPERATOR Office Visit [facility]rology [facility]ics - [place] [address] [facility], [address] [place] [address] [place] [address] [place], [place] [phone] Johnny Penn MD 2899 [facility] [place], [place] 873015 documented as of this encounter Visit Diagnoses Not on filedocumented in this encounter Additional Health Concerns Infection Onset Date Last Indicated Resolved Time Rule Out COVID-19 12/26/2023 12/26/2023 12/26/2023 9:50 AM CDT Assessment Noted Time PHQ-9 Depression Total Score: 5 03/10/20 6:49 AM CDT documented as of this encounter Care Teams Director Of Corporate Sales Relationship Specialty Start Date End Date Esha Grimm PA-C [address] [place] [phone] PCP - General Family Medicine 05/04/23 Marija Edgar APRN MANAGER BANQUET Assigned PCP 06/08/20 04/29/23 Diana Desir, [facility] [address] [place] [address] Pharmacist Pharmacist 04/17/21 Rain Galaviz PA-C [address] [place] [address] [address] [place] [address] Physician Cyber Threat Analyst Dermatology 04/28/21 Tavia Wyatt MD [address] [facility] [address] [place] [address] Dermatology 07/14/21 Erica Farrell APRN MANAGER BANQUET [address] [place], [place] 995545 Nurse Practitioner Cardiovascular Disease 09/09/21 Rich Barrett MD [address] [facility] 9A [place], [place] 991765 Physician Ophthalmology 01/21/22 Neil Kent MD 500 [place], [place] 384645 Dermatology 02/24/22 [facility] 3033 [place], [place] 096606 Assigned MTM Pharmacist 04/07/22 Livan Sharif MD [address] [address] Cardiovascular Disease 05/14/22 Catherine Cm MD [address] 270845 Cardiovascular Disease 07/21/22 Valery Veronica, PA-C [address] [place] [address] 135875 Physician Cyber Threat Analyst Dermatology 07/21/22 Brea Quinn APRN MANAGER BANQUET 500 [place], [place] [phone] Nurse Practitioner Dermatology 09/21/22 Brea Quinn APRN MANAGER BANQUET [address] [place] [place] [address] Assigned Surgical Provider 10/09/22 [place] [address] [place] [address] Assigned Musculoskeletal Provider 10/09/22 Catherine Cm MD [address] [place] [address] Assigned Heart and Vascular Provider 11/13/22 05/27/23 Sydnie Martinez RN Personal Advocate & Liaison (PAL) Family Medicine 03/28/23 07/31/23 Alfonso Renteria MD 5775 [facility] 200 [place], [place] 490546 Assigned Neuroscience Provider 04/02/23 Cheng Todd PA-C [address] [place] [address] [phone] Assigned PCP 04/30/23 07/15/23 Radha Lomeli, ARLENE MANAGER BANQUET [address] [facility] [address] [place] 230435 Assigned Heart and Vascular Provider 05/28/23 Jelena David OD [address] [facility] [place] [address] Ophthalmology 06/15/23 Pao Joseph VJ Personal Advocate & Liaison (PAL) Nurse 08/01/23 11/07/23 Esha Grimm PA-C [address] [place] [address]876583 Assigned PCP 07/16/23 Valery Veronica PA-C [address] [place] [address]345 Physician Cyber Threat Analyst Dermatology 09/19/23 Rey Tay MD [address] [place] [address] 864195 Gastroenterology 09/20/23 Rocky Zepeda DO [address] [place] [address] 491645 Physician Gastroenterology 09/20/23 Philip Dumont MD [address] [place] [address] 848315 Physician Ophthalmology 09/22/23 Meredith Carrera PA-C [address] [place] [address] Assigned Gastroenterology Provider 11/01/23 Neil Kent MD [address] [place] [address] Dermatology 11/02/23 [place] [address] [place] [address] Neurological Surgery 12/26/23 Audrey Waite PA-C 500 [place] [address] Physician Cyber Threat Analyst Dermatology 02/28/24 documented as of this encounter
--- OUTSIDE RECORDS SUMMARY | 2024-03-23 16:00 | XMS_ITS | Encounter Summary ---
Author Organization [place] Address [address] [place] [address] Care Team Providers Care Metal Buildings Assembler Name Role Phone ThangKendrickDiana T [facility] Unavailable Rain Galaviz-C Unavailable Tavia Wyatt MD Unavailable Unavailable Erica Farrell HOT PIPE GAUGER UNIT NURSE Unavailable Rich aBrrett MD Unavailable Neil Kent MD Unavailable Diana Desir [facility] Unavailable Livan Sharif MD Unavailable Catherine Cm MD Unavailable + Valery Veronica-C Unavailable [phone] Brea Quinn HOT PIPE GAUGER UNIT NURSE Unavailable Brea Quinn HOT PIPE GAUGER UNIT NURSE Unavailable Jose Francisco Johnson MD Unavailable Sydnie Martinez RN Unavailable Unavailable Alfonso Renteria MD Unavailable + [phone] Esha Grimm PA-C Primary Care Provider Radha Lomeli HOT PIPE GAUGER UNIT NURSE Unavailable Jelena David OD Unavailable Pao Joseph RN Unavailable Unavailable Wicho Grimmlincoln Medina PA-C Unavailable [phone] JeremíasValery PA-C Unavailable [phone] Rey Tay MD Unavailable Rocky Zepeda DO Unavailable Philip Dumont MD Unavailable [phone] Meredith Carrera PA-C Unavailable [phone] Neil Kent MD Unavailable Juan Pablo Emmanuel MD Unavailable [phone] Audrey Waite PA-C Unavailable [phone] Encounter Details Date Type Department Care Team (Late st Contact Info) Description 07/27/2023 MyC Medical Advice [address] [address] [facility] 3033 [place] [address] Social History Tobacco Use Types Packs/Day Years [...] Answer Date Recorded PHQ-2 Score 0 06/20/2023 [facility] - [...] exercise at this level? 30 min 03/10/2023 [place] Depression Scale Answer Date Recorded [place] Depression Score 5 01/14/2021 Last EPDS Self [...] Description 03/26/2024 11:20 AM CDT Office Visit [facility] Spine and Neurosurgery [address] [place] [address] [address] [place] [address] Ebony Cid APRN UNIT NURSE 500 [place] [address] 03/27/2024 11:00 AM CDT Office Visit [facility] [place] [address] [facility] [address] [place] [phone] Jelena David, SONJA 3305 [facility] [place] [address] 03/29/2024 3:30 PM CDT Therapy Visit [facility] Rehabilitation Services [address] [place] [phone] Ingris Thompson, PT [facility] 516 [facility] 106 [place], [place] [address] 04/05/2024 2:10 PM CDT Therapy Visit [facility] [place] [address] [facility] [address] [place] [phone] Ingris Thompson, PT [facility] 516 [facility] 106 [place], [place] 9[address]95 04/19/2024 2:45 PM CDT Office Visit [address] [phone] Audrey Waite PA-C 420 [facility] B385, [facility] 603 [place], [place] [address]185 05/08/2024 1:30 PM CDT Office Visit [facility] [address] [place] [phone] Lauren Claudio PA-C [address] [place], [place] [phone] Esha Grimm PA-C [address] [place] [address] 06/21/2024 2:00 PM SOILS ENGINEER Office Visit [facility] Neurology Clinics - [address], [address] [place] [address] [place] [address] [place] [place] [address] Johnny Penn MD 3516 [place] [address] documented as of this encounter Visit Diagnoses Not on filedocumented in this encounter Additional Health Concerns Infection Onset Date Last Indicated Resolved Time Rule Out COVID-19 12/26/2023 12/26/2023 12/26/2023 9:50 AM CDT Assessment Noted Time PHQ-9 Depression Total Score: 4 06/20/20 23 8:40 AM SOILS ENGINEER documented as of this encounter Care Teams Metal Buildings Assembler Relationship Specialty Start Date End Date Esha Grimm PA-C [address] [place] [address] PCP - General Family Medicine 05/04/23 Diana Desir, [facility] [address] [place], [place] [address] Pharmacist Pharmacist 04/17/21 Rain Galaviz PA-C [address] [place] [address] [address] [place] [facility] [place] [address] Physician Sr. Vendor Management Associate Dermatology 04/28/21 Tavia Wyatt MD [address] [place] [address] [address] [place] [address] Dermatology 07/14/21 Erica Farrell APRN UNIT NURSE 6405 [facility] [address] [place], [place] 0[address]45 Nurse Practitioner Cardiovascular Disease 09/09/21 Rich Barrett MD [address] 634255 Physician Ophthalmology 01/21/22 Neil Kent MD 500 [place] [address] Dermatology 02/24/22 Diana Desir, [facility] 3033 [place] [address] Assigned [place] Pharmacist 04/07/22 Livan Sharif MD [address] [facility] [place] [address] Cardiovascular Disease 05/14/22 Catherine Cm MD [address] [address] Cardiovascular Disease 07/21/22 Valery Veronica, PA-C [address] [place] [address] Physician Sr. Vendor Management Associate Dermatology 07/21/22 Brea Quinn APRN UNIT NURSE 500 [place] [address] Nurse Practitioner Dermatology 09/21/22 Brea Quinn APRN UNIT NURSE [address] [place] [address] Assigned Surgical Provider 10/09/22 [place] [address] 514627 Assigned Musculoskeletal Provider 10/09/22 Sydnie Martinez RN Personal Advocate & Liaison (PAL) Family Medicine 03/28/23 07/31/23 Alfonso Renteria MD [address] 200 [place] [address] Assigned Neuroscience Provider 04/02/23 Radha Lomeli APRN UNIT NURSE [address] [place] [address] Assigned Heart and Vascular Provider 05/28/23 Jelena David OD [address] [facility] [place] [address] MD Ophthalmology 06/15/23 Pao Joseph, VJ Personal Advocate & Liaison (PAL) Nurse 08/01/23 11/07/23 Esha Grimm PA-C [address] [place] [phone] Assigned PCP 07/16/23 Valery Veronica PA-C [address] [place] [address] 816285 Physician Sr. Vendor Management Associate Dermatology 09/19/23 Rey Tay MD [address] [place] [address] 413745 Gastroenterology 09/20/23 Rocky Zepeda DO [address] [place] [address] 208205 Physician Gastroenterology 09/20/23 Philip Dumont MD [address] [place] [address] Physician Ophthalmology 09/22/23 Meredith Carrera PA-C [address] [place] [address] Assigned Gastroenterology Provider 11/01/23 Neil Kent MD [address] [address] Dermatology 11/02/23 [place] [address] 370917 Neurological Surgery 12/26/23 Audrey Waite PA-C 500 [place] [address] Physician Sr. Vendor Management Associate Dermatology 02/28/24 documented as of this encounter
--- OUTSIDE RECORDS SUMMARY | 2024-03-23 16:00 | XMS_ITS | Encounter Summary ---
Author Organization [place] Address [address] [place] [address] Care Team Providers Care Racing Board Marker Name Role Phone Thang Diana [place] [facility] Unavailable Rain Galaviz-C Unavailable [phone] Tavia Wyatt MD Unavailable Unavailable Erica Farrell APRN RAKING MACHINE OPERATOR Unavailable Rich Barrett MD Unavailable Neil Kent MD Unavailable Diana Desir [facility] Unavailable Livan Sharif MD Unavailable Catherine Cm MD Unavailable + Valery Veronica-C Unavailable [phone] Brea Quinn LIVESTOCK FARMWORKER RAKING MACHINE OPERATOR Unavailable Brea Quinn LIVESTOCK FARMWORKER RAKING MACHINE OPERATOR Unavailable Jose Francisco Johnson MD Unavailable Sydnie Martinez RN Unavailable Unavailable Alfonso Renteria MD Unavailable + [phone] Esha Grimm PA-C Primary Care Provider Cheng Todd PA-C Unavailable Radha Lomeli APRN RAKING MACHINE OPERATOR Unavailable Jelena David OD Unavailable [phone] Pao Joseph RN Unavailable Unavailable Alfa Esha M PA-C Unavailable [phone] Valery Veronica PA-C Unavailable Rey Tay MD Unavailable Rocky Zepeda DO Unavailable Philip Dumont MD Unavailable Meredith Carrera PA-C Unavailable Neil Kent MD Unavailable Juan Pablo Emmanuel MD Unavailable Audrey Waite PA-C Unavailable Encounter Details Date Type Department Care Team (Late st Contact Info) Description 06/17/2023 MyC Medical Advice M Physicians [facility] Epilepsy Care [address], [address] [place] [address] Alfonso Renteria MD 5745 [facility] [address] 200 [place] [address] Social History Tobacco Use Types [...] [facility] or quaker services? 1 to 4 times [...] exercise at this level? 30 min 03/10/2023 [place] Depression Scale Answer Date Recorded [place] Depression Score 5 01/14/2021 Last EPDS Self [...] calling to follow up on the below Inside Socialt message. Patient continues to have a lot of dizzyness and neck pain. K LIFTER documented in this encounter Plan of Treatment Upcoming Encounters Date Type Department Care Team (Late st Contact Info) Description 03/26/2024 11:20 AM CDT Office Visit [facility] Spine and Neurosurgery [address] [place] [address] Ebony Cid, LIVESTOCK FARMWORKER [facility] 500 [place] [address] 03/27/2024 11:00 AM CDT Office Visit [facility] [place] [address] [facility] [address] [place] [phone] Jelena David, 3305 [facility] [place] [address] 03/29/2024 3:30 PM CDT Therapy Visit [facility] [address] [place] [address] 160 [place] [phone] Ingris Thompson, PT [facility] [address] [place] [address] 106 [place], [place] [address] 04/05/2024 2:10 PM CDT Therapy Visit [facility] [address] [place] [phone] Ingris Thompson, PT [facility] [address] [place] [address] 106 [place] [address] 04/19/2024 2:45 PM CDT Office Visit [address] [phone] Audrey Waite PA-C 420 [facility] [address], [facility] 603 [place] [address] 05/08/2024 1:30 PM CDT Office Visit [facility] [address] [place] [phone] Lauren Claudio PA-C [address] [place], [place] [phone] Esha Grimm PA-C [address] [place] [address] 06/21/2024 2:00 PM STOCK LIFTER Office Visit [facility] Neurology Clinics - [place] [address] [facility], [address] [place] [address] [place] [address] [place] [address] Johnny Penn MD [address] [place] [phone] documented as of this encounter Visit Diagnoses Not on filedocumented in this encounter Additional Health Concerns Infection Onset Date Last Indicated Resolved Time Rule Out COVID-19 12/26/2023 12/26/2023 12/26/2023 9:50 AM CDT Assessment Noted Time PHQ-9 Depression Total Score: 6 05/16/20 23 9:29 AM STOCK LIFTER documented as of this encounter Care Teams Racing Board Marker Relationship Specialty Start Date End Date Esha Grimm PA-C [address] [place] [address]865283 PCP - General Family Medicine 05/04/23 Diana Desir, [facility] [address] [place] [address] Pharmacist Pharmacist 04/17/21 Rain Galaviz PA-C [address] [place] [address] [address] [place] [address] Physician Station Baggage Agent Dermatology 04/28/21 Tavia Wyatt MD [address] [place] [address] [address] [place] [address] Dermatology 07/14/21 Erica Farrell APRN RAKING MACHINE OPERATOR [address] 8[address] Nurse Practitioner Cardiovascular Disease 09/09/21 Rich Barrett MD 516 [facility] 9A [place], [place] [address] Physician Ophthalmology 01/21/22 Neli Kent MD 500 [place], [place] 668385 Dermatology 02/24/22 Diana Desir, [facility] 3033 [place], [place] 162076 Assigned [facility] Pharmacist 04/07/22 Livan Sharif MD [address] [address] Cardiovascular Disease 05/14/22 Catherine Cm MD [address] 323585 Cardiovascular Disease 07/21/22 Valery Veronica, PA-C [address] [place] [address] 479685 Physician Station Baggage Agent Dermatology 07/21/22 Brea Quinn APRN RAKING MACHINE OPERATOR 500 [place], [place] 201465 Nurse Practitioner Dermatology 09/21/22 Brea Quinn APRN RAKING MACHINE OPERATOR 6401 [facility] [place] 304012 Assigned Surgical Provider 10/09/22 [place] [address] [address] [place] [address] Assigned Musculoskeletal Provider 10/09/22 Sydnie Martinez RN Personal Advocate & Liaison (PAL) Family Medicine 03/28/23 07/31/23 Alfonso Renteria MD [address] [facility] 200 [place], [place] 9985[address] Assigned Neuroscience Provider 04/02/23 Cheng Todd PA-C [address] [place] [address] [id number] Assigned PCP 04/30/23 07/15/23 Radha Lomeli, LIVESTOCK FARMWORKER RAKING MACHINE OPERATOR 6405 [facility] [address] [place], [place] [address] Assigned Heart and Vascular Provider 05/28/23 Jelena David OD [address]305 [facility] [place] [address] Ophthalmology 06/15/23 Pao Joseph, VJ Personal Advocate & Liaison (PAL) Nurse 08/01/23 11/07/23 Esha Grimm PA-C [address] [place] [phone] Assigned PCP 07/16/23 Valery Veronica PA-C 909 [place], [place] 025705 Physician Station Baggage Agent Dermatology 09/19/23 Rey Tay MD 909 [place] [address] MD Gastroenterology 09/20/23 Rocky Zepeda DO 500 [place] [address] Physician Gastroenterology 09/20/23 Philip Dumont MD 516 [place] [address] Physician Ophthalmology 09/22/23 Meredith Carrera PA-C 9 [place] [address] Assigned Gastroenterology Provider 11/01/23 Neil Kent MD [address] [address] Dermatology 11/02/23 [place] [address] [place] [address] Neurological Surgery 12/26/23 Audrey Waite PA-C 500 [place] [address] Physician Station Baggage Agent Dermatology 02/28/24 documented as of this encounter
--- OUTSIDE RECORDS SUMMARY | 2024-03-23 16:00 | XMS_ITS | Encounter Summary ---
Author Organization [place] Address [address] [place] [address] Care Team Providers Care Studio Set Up Worker Name Role Phone Thang Diana [place] [facility] Unavailable Rain Galaviz-C Unavailable [phone] Tavia Wyatt MD Unavailable Unavailable Erica Farrell APRN ADMITTING REPRESENTATIVE Unavailable Rich Barrett MD Unavailable Neil Kent MD Unavailable Diana Desir [facility] Unavailable Livan Sharif MD Unavailable Catherine Cm MD Unavailable + Valery Veronica-C Unavailable [phone] Brea Quinn FEATHERER ADMITTING REPRESENTATIVE Unavailable Brea Quinn FEATHERER ADMITTING REPRESENTATIVE Unavailable [phone] Jose Francisco Johnson MD Unavailable Sydnie Martinez RN Unavailable Unavailable Alfonso Renteria MD Unavailable + [phone] Esha Grimm PA-C Primary Care Provider Cheng Todd PA-C Unavailable Radha Lomeli APRN ADMITTING REPRESENTATIVE Unavailable Jelena David OD Unavailable Pao Joseph RN Unavailable Unavailable Alfa Esha M PA-C Unavailable [phone] Valery Veronica PA-C Unavailable Rey Tay MD Unavailable Rocky Zepeda DO Unavailable Philip Dumont MD Unavailable [phone] Meredith Carrera PA-C Unavailable Neil Kent MD Unavailable Juan Pablo Emmanuel MD Unavailable [phone] Audrey Waite PA-C Unavailable [phone] Encounter Details Date Type Department Care Team (Late st Contact Info) Description 07/06/2023 MyC Medical Advice M Physicians [facility] [address], [address] [place] [address] Alfonso Renteria MD 5783 [facility] [address] 200 [place] [address] Social History Tobacco Use Types [...] 03/10/2023 How often do you attend [facility] or voodoo services? 1 to 4 [...] exercise at this level? 30 min 03/10/2023 [place] Depression Scale Answer Date Recorded [place] Depression Score 5 01/14/2021 Last EPDS [...] in an overnight chcf, or couch-surfing.) Yes 06/20/2023 Are you worried [...] Genny Hyman PA-C - 07/07/2023 11:13 AM CAD CAM PROGRAMMER No lesions/abnormal findings on MRI to account for possible seizure activity. Last office note indicated: If repeat MRI was normal would reduce levetiracetam to 250 mg per day for two weeks and then stop. Ok to proceed with this plan. Call if questions, concerns, or worsening of symptoms with discontinuation of the medication Genny Hyman PA-C CAM PROGRAMMER documented in this encounter Plan of Treatment Upcoming Encounters Date Type Department Care Team (Late st Contact Info) Description 03/26/2024 11:20 AM CDT Office Visit [facility] Spine and Neurosurgery [address] [place] [address] Ebony Cid, FEATHERER ADMITTING REPRESENTATIVE [address] [place] [address] 03/27/2024 11:00 AM CDT Office Visit [facility] [place] [address] [facility] [address] [place] [phone] Jelena David, OD [address] [place] [address] 03/29/2024 3:30 PM CDT Therapy Visit [facility] [address] [place] [address] 160 [place] [phone] Ingris Thompson, PT [facility] [address] [place] [address] 04/05/2024 2:10 PM CDT Therapy Visit [facility] [address] [place] [address] 160 [place] [phone] Ingris Thompson, PT [facility] [address] [place] [address] 04/19/2024 2:45 PM CDT Office Visit [facility] 830 [place] [phone] Audrey Waite PA-C 420 [facility] [address]385, [facility] 603 [place] [address] 05/08/2024 1:30 PM CDT Office Visit [facility] [address] [place] [phone] Lauren Claudio PA-C [address] [place] [address] Esha Grimm PA-C [address] [place] [address] 06/21/2024 2:00 PM CAD CAM PROGRAMMER Office Visit [facility] Neurology Clinics [facility] [address] [facility], [address] [place] [address] [place] [address] [place], [place] [phone] Johnny Penn MD 6545 [place] [address] documented as of this encounter Visit Diagnoses Not on filedocumented in this encounter Additional Health Concerns Infection Onset Date Last Indicated Resolved Time Rule Out COVID-19 12/26/2023 12/26/2023 12/26/2023 9:50 AM CDT Assessment Noted Time PHQ-9 Depression Total Score: 4 06/20/20 8:40 AM CAD CAM PROGRAMMER documented as of this encounter Care Teams Studio Set Up Worker Relationship Specialty Start Date End Date Esha Grimm PA-C [address] [place] [phone] PCP - General Family Medicine 05/04/23 Diana Desir, [facility]3 [place] [address] Pharmacist Pharmacist 04/17/21 Rain Galaviz PA-C [address] [place] [address] [address] [place] [address] Physician Medical Insurance Verifier Dermatology 04/28/21 Tavia Wyatt MD [address] [place] [address] [address] [place] [address] Dermatology 07/14/21 Erica Farrell APRN ADMITTING REPRESENTATIVE [address] [place] [address] Nurse Practitioner Cardiovascular Disease 09/09/21 Rich Barrett MD 516 [facility] 9A [place], [place] 94[address] Physician Ophthalmology 01/21/22 Neil Kent MD 500 [place], [place] [phone] Dermatology 02/24/22 Diana Desir, [facility] 3033 [place], [place] 190606 Assigned MTM Pharmacist 04/07/22 Livan Sharif MD [address] [place], [place] 9[address] Cardiovascular Disease 05/14/22 Catherine Cm MD [address] [facility]00 [place], [place] 208605 Cardiovascular Disease 07/21/22 Valery Veronica PAUcheC [address] [place] [address] 226945 Physician Medical Insurance Verifier Dermatology 07/21/22 Brea Quinn APRN ADMITTING REPRESENTATIVE 500 [place], [place] [phone] Nurse Practitioner Dermatology 09/21/22 Brea Quinn, FEATHERER ADMITTING REPRESENTATIVE 6401 [facility] [place] [address] Assigned Surgical Provider 10/09/22 [place] [address] [facility] 300 [place] [address] Assigned Musculoskeletal Provider 10/09/22 Sydnie Martinez RN Personal Advocate & Liaison (PAL) Family Medicine 03/28/23 07/31/23 Alfonso Renteria MD 5775 [facility] 200 [place] [address] Assigned Neuroscience Provider 04/02/23 Cheng Todd PA-C [address] [place] [address] [phone] Assigned PCP 04/30/23 07/15/23 Radha Lomeli APRN ADMITTING REPRESENTATIVE 6405 [facility] [address] [place] [address] Assigned Heart and Vascular Provider 05/28/23 Jelena David OD [address] [place] [address] Ophthalmology 06/15/23 Pao Joseph, VJ Personal Advocate & Liaison (PAL) Nurse 08/01/23 11/07/23 Esha Grimm PA-C [address] [place] [phone] Assigned PCP 07/16/23 Valery Veronica PA-C 909 [place] [address] Physician Medical Insurance Verifier Dermatology 09/19/23 Rey Tay MD [address] [place] [address] MD Gastroenterology 09/20/23 Rocky Zepeda DO 500 [place] [address] Physician Gastroenterology 09/20/23 Philip Dumont MD [address] [place] [address] Physician Ophthalmology 09/22/23 Meredith Carrera PA-C [address] [place] [address] Assigned Gastroenterology Provider 11/01/23 Neil Kent MD [address] [address] Dermatology 11/02/23 [place] [address] [address] Neurological Surgery 12/26/23 Audrey Waite PA-C 500 [place] [address] Physician Medical Insurance Verifier Dermatology 02/28/24 documented as of this encounter
--- OUTSIDE RECORDS SUMMARY | 2024-03-23 16:00 | XMS_ITS | Encounter Summary ---
Author Organization [place] Address [address] [place] [address] Care Team Providers Care It Service Technician Name Role Phone Thang Diana [place] [facility] Unavailable Rain Galaviz-C Unavailable Tavia Wyatt MD Unavailable Unavailable Erica Farrell APRN SITE DAMAGE PREVENTION TECHNICIAN Unavailable Rich Barrett MD Unavailable Neil Kent MD Unavailable Diana Desir [facility] Unavailable [phone] Livan Sharif MD Unavailable Catherine Cm MD Unavailable + Valery Veronica-C Unavailable [phone] Brea Quinn MANAGER EMPLOYEE RELATIONS SITE DAMAGE PREVENTION TECHNICIAN Unavailable [phone] Brea Quinn MANAGER EMPLOYEE RELATIONS SITE DAMAGE PREVENTION TECHNICIAN Unavailable Jose Francisco Johnson MD Unavailable Sydnie Martinez RN Unavailable Unavailable Alfonso Renteria MD Unavailable + [phone] Esha Grimm PA-C Primary Care Provider Cheng Todd PA-C Unavailable Radha Lomeli APRN SITE DAMAGE PREVENTION TECHNICIAN Unavailable [phone] Jelena David OD Unavailable Pao Joseph RN Unavailable Unavailable Wicho Grimmlincoln Medina PA-C Unavailable [phone] Valery Veronica PA-C Unavailable [phone] Rey Tay MD Unavailable Rocky Zepeda DO Unavailable Philip Dumont MD Unavailable [phone] Meredith Carrera PA-C Unavailable [phone] Neil Kent MD Unavailable Juan Pablo Emmanuel MD Unavailable [phone] Audrey Waite PA-C Unavailable [phone] Encounter Details Date Type Department Care Team (Late st Contact Info) Description 06/15/[address] [facility] Gastroenterology Clinic [address]th [place] [address] Doris Levi Social History [...] How often do you attend chur or pentecostal services? 1 to 4 times [...] PHQ-2 Score 1 05/16/2023 [facility] - Occupational Stress Questionnaire Answer Date [...] exercise at this level? 30 min 03/10/2023 [place] Depression Scale Answer Date Recorded [place] Depression Score 5 01/14/2021 Last EPDS Self [...] in an overnight assisted, or couch-surfing.) Yes 04/18/2023 Are you worried [...] [facility] Spine and Neurosurgery [address] [facility] [address] [place] [phone] Ebony Cid, MANAGER EMPLOYEE RELATIONS SITE DAMAGE PREVENTION TECHNICIAN 500 [place] [address] 03/27/2024 11:00 AM CDT Office Visit [facility] [place] [address] [facility] [address] [facility] [address] [place] [phone] Jelena David, OD 3305 [facility] [place] [address] 03/29/2024 3:30 PM CDT Therapy Visit [facility] [address] [facility] 160 [place] [phone] Ingris Thompson, PT [facility] 516 [facility] 106 [place], [place] [address] 04/05/2024 2:10 PM CDT Therapy Visit [facility] [address] [facility] [address] [place] [phone] Ingris Thompson, PT [facility] 6 [facility] 106 [place], [place] [address] 04/19/2024 2:45 PM CDT Office Visit [address] [phone] Audrey aWite PA-C 420 [facility] [address]385, [facility] 603 [place], [place] 370445 05/08/2024 1:30 PM CDT Office Visit [facility] [address] [place] [phone] Lauren Claudio PA-C [address] [place], [place] [phone] Esha Grimm PA-C [address] [place] [phone] 06/21/2024 2:00 PM CERTIFIED SCRUB TECH Office Visit [facility] Neurology Clinics - [address], [address] [place] [address] [place] [address] [place], [place] 974977 Johnny Penn MD [address]45 [place] 656755 documented as of this encounter Visit Diagnoses Not on filedocumented in this encounter Additional Health Concerns Infection Onset Date Last Indicated Resolved Time Rule Out COVID-19 12/26/2023 12/26/2023 12/26/2023 9:50 AM CDT Assessment Noted Time PHQ-9 Depression Total Score: 6 05/16/20 9:29 AM CERTIFIED SCRUB TECH documented as of this encounter Care Teams It Service Technician Relationship Specialty Start Date End Date Esha Grimm PA-C [address] [place] [address]47[address]83 PCP - General Family Medicine 05/04/23 [facility] 3033 [place] [address] Pharmacist Pharmacist 04/17/21 Rain Galaviz PA-C [address] [place] [address] [address] [place] [address] Physician Raw Material Planner Dermatology 04/28/21 Tavia Wyatt MD [address] [place] [address] [address] [place] [address] Dermatology 07/14/21 Erica Farrell APRN SITE DAMAGE PREVENTION TECHNICIAN [address] [place] [address] Nurse Practitioner Cardiovascular Disease 09/09/21 Rich Barrett MD 516 [facility] 9A [place], [place] 0[address] Physician Ophthalmology 01/21/22 Neil Kent MD 500 [place], [place] 740235 Dermatology 02/24/22 Diana Desir, [facility] 3033 [facility] [place] [place] [address]796 Assigned MTM Pharmacist 04/07/22 Livan Sharif MD [address] 00 [place] 310345 Cardiovascular Disease 05/14/22 Catherine Cm MD [address] [facility] [place] 517535 Cardiovascular Disease 07/21/22 Valery Veronica, PA-C 909 [place], [place] 908765 Physician Raw Material Planner Dermatology 07/21/22 Brea Quinn APRN SITE DAMAGE PREVENTION TECHNICIAN 500 [place] [address] Nurse Practitioner Dermatology 09/21/22 Brea Quinn APRN SITE DAMAGE PREVENTION TECHNICIAN [address] [facility] [place] 14[address]32 Assigned Surgical Provider 10/09/22 [place] [address] [place] [address] Assigned Musculoskeletal Provider 10/09/22 Sydnie Martinez RN Personal Advocate & Liaison (PAL) Family Medicine 03/28/23 07/31/23 Alfonso Renteria MD [address] [facility] [address] 200 [place] [address] Assigned Neuroscience Provider 04/02/23 Cheng Todd PA-C [address] [place] [address] Assigned PCP 04/30/23 07/15/23 Radha Lomeli APRN SITE DAMAGE PREVENTION TECHNICIAN 6405 [facility] [address] [place] [address] Assigned Heart and Vascular Provider 05/28/23 Jelena David OD [address] [facility] [place] [address] Ophthalmology 06/15/23 Poa Joseph, VJ Personal Advocate & Liaison (PAL) Nurse 08/01/23 11/07/23 Esha Grimm PA-C [address] [place] [address] Assigned PCP 07/16/23 Valery Veronica PA-C [address] [place] [address] Physician Raw Material Planner Dermatology 09/19/23 Rey Tay MD [address] [place] [address] Gastroenterology 09/20/23 Rocky Zepeda DO [address] [place] [address] Physician Gastroenterology 09/20/23 Philip Dumont MD 6 [place] [address] Physician Ophthalmology 09/22/23 Meredith Carrera PA-C [address] [place] [address] Assigned Gastroenterology Provider 11/01/23 Neil Kent MD [address] [place] [address] Dermatology 11/02/23 [place] [address] [address] [address] Neurological Surgery 12/26/23 Audrey Waite PA-C 500 [place] [address] Physician Raw Material Planner Dermatology 02/28/24 documented as of this encounter
--- OUTSIDE RECORDS SUMMARY | 2024-03-23 16:00 | XMS_ITS | Encounter Summary ---
Author Organization [place] Address [address] [place] [address] Care Team Providers Care Afternoon Babysitter Name Role Phone Thang Diana [place] [facility] Unavailable [phone] Rain Galaviz-C Unavailable Tavia Wyatt MD Unavailable Unavailable Erica Farrell APRN ARTIST'S MODEL Unavailable Rich Barrett MD Unavailable Neil Kent MD Unavailable Diana Desir [facility] Unavailable Livan Sharif MD Unavailable Catherine Cm MD Unavailable + Valery Veronica-C Unavailable [phone] Brea Quinn STRANDING MACHINE OPERATOR ARTIST'S MODEL Unavailable Brea Quinn STRANDING MACHINE OPERATOR ARTIST'S MODEL Unavailable Jose Francisco Johnson MD Unavailable Sydnie Martinez RN Unavailable Unavailable Alfonso Renteria MD Unavailable + [phone] Esha Grimm PA-C Primary Care Provider Cheng ToddC Unavailable [phone] Radha Lomeli APRN ARTIST'S MODEL Unavailable [phone] Jelena David OD Unavailable Pao Joseph RN Unavailable Unavailable Esha GrimmC Unavailable [phone] Valery Veronica PA-C Unavailable [phone] Rey Tay MD Unavailable Rocky Zepeda DO Unavailable Philip Dumont MD Unavailable [phone] Meredith Carrera PA-C Unavailable Neil Kent MD Unavailable Juan Pablo Emmanuel MD Unavailable [phone] Audrey Waite-C Unavailable [phone] Encounter Details Date Type Department Care Team (Late st Contact Info) Description 07/06/2023 [facility] Medical Advice [facility] [address] [place] [address] Esha Grimm PA-C [id number] [place] [address] Social History Tobacco Use Types Packs/Day [...] attend [facility] or temple services? 1 to 4 [...] Answer Date Recorded PHQ-2 Score 0 06/20/2023 [facility] - [...] exercise at this level? 30 min 03/10/2023 [place] Depression Scale Answer Date Recorded [place] Depression Score 5 01/14/2021 Last EPDS Self [...] in an overnight mcc, or couch-surfing.) Yes 06/20/2023 Are you worried [...] Office Visit [facility] Spine and Neurosurgery [address] [facility] [address] [place] [address] Ebony Cid, STRANDING MACHINE OPERATOR ARTIST'S MODEL 500 [place] [address] 03/27/2024 11:00 AM CDT Office Visit [facility] [place] [address] [place] [address] Jelena David, OD 3305 [facility] [place] [address] 03/29/2024 3:30 PM CDT Therapy Visit [facility] [address] [place] [phone] Ingris Thompson, PT [facility] 6 [facility] 106 [place], [place] 9[address] 04/05/2024 2:10 PM CDT Therapy Visit [facility] [place] [address] [facility] 160 [place] [address] Ingris Thompson, PT [facility] 6 [facility] 106 [place], [place] [address]285 04/19/2024 2:45 PM CDT Office Visit [address] [phone] Audrey Waite PA-C 420 [facility] B385, [facility] 603 [place], [place] 7[address]355 05/08/2024 1:30 PM CDT Office Visit [facility] [address] [place] [address] Lauren Claudio PA-C [address] [place], [place] [phone] Esha Grimm PA-C [address] [place] [address] 06/21/2024 2:00 PM LAUNDRY PRESSER Office Visit [facility] Neurology Clinics - [address], [address] [place] [address] [place] [address] [place], [place] 272097 IsamarJohnny farnsworth MD [address] [place] [address] documented as of this encounter Visit Diagnoses Not on filedocumented in this encounter Additional Health Concerns Infection Onset Date Last Indicated Resolved Time Rule Out COVID-19 12/26/2023 12/26/2023 12/26/2023 9:50 AM CDT Assessment Noted Time PHQ-9 Depression Total Score: 4 06/20/20 23 8:40 AM LAUNDRY PRESSER documented as of this encounter Care Teams Afternoon Babysitter Relationship Specialty Start Date End Date Esha Grimm [facility]-C [address] [facility] [place] [phone] PCP - General Family Medicine 05/04/23 Diana Desir, [facility] [address] [place], [place] [address] Pharmacist Pharmacist 04/17/21 Rain Galaviz PA-C [address] [place] [address] [address] [place] [address] Physician Balloon Artist Dermatology 04/28/21 Tavia Wyatt MD [address] [place] [address] [address] [place] [address] Dermatology 07/14/21 Erica Farrell APRN ARTIST'S MODEL [address] [place] [address] Nurse Practitioner Cardiovascular Disease 09/09/21 Rich Barrett MD 516 [facility] 9A [place], [place] 6[address]65 Physician Ophthalmology 01/21/22 Neil Kent MD 500 [place] [address] Dermatology 02/24/22 Diana Desir, [facility] 3033 [place] [address] Assigned MTM Pharmacist 04/07/22 Livan Sharif MD [address] [facility]00 [place], [place] 521845 Cardiovascular Disease 05/14/22 Catherine Cm MD [address] [address] Cardiovascular Disease 07/21/22 Valery Veronica, PA-C 909 [place], [place] 052375 Physician Balloon Artist Dermatology 07/21/22 Brea Quinn APRN ARTIST'S MODEL 500 [place] [address] Nurse Practitioner Dermatology 09/21/22 Brea Quinn APRN ARTIST'S MODEL 6401 [place] [address] Assigned Surgical Provider 10/09/22 [place] [address] [place] [address] Assigned Musculoskeletal Provider 10/09/22 Sydnie Martinez RN Personal Advocate & Liaison (PAL) Family Medicine 03/28/23 07/31/23 Alfonso Renteria MD [address] [facility] [address] 200 [place] [address] Assigned Neuroscience Provider 04/02/23 Cheng Todd PA-C [address] [place] [address] [phone] Assigned PCP 04/30/23 07/15/23 Radha Lomeli, ARLENE ARTIST'S MODEL [address] [place] [phone] [place], [place] 907545 Assigned Heart and Vascular Provider 05/28/23 Jelena David OD [address] [facility] [address] [place] [phone] Ophthalmology 06/15/23 Pao Joseph, VJ Personal Advocate & Liaison (PAL) Nurse 08/01/23 11/07/23 Esha Grimm PA-C [address] [place] [address]-17[address]83 Assigned PCP 07/16/23 Valery Veronica PA-C [address] [place] [address] 562675 Physician Balloon Artist Dermatology 09/19/23 Rey Tay MD [address] [place] [address] 908915 Gastroenterology 09/20/23 Rocky Zepeda DO [address] [place] [address] [phone] Physician Gastroenterology 09/20/23 Philip Dumont MD 516 [place], [place] 970525 Physician Ophthalmology 09/22/23 Meredith Carrera PA-C [address] [place] [address] 895005 Assigned Gastroenterology Provider 11/01/23 Neil Kent MD [address] 508320 Dermatology 11/02/23 [place] [address] [place] [address] 596157 Neurological Surgery 12/26/23 Audrey Waite PA-C 500 [place], [place] 217715 Physician Balloon Artist Dermatology 02/28/24 documented as of this encounter
--- OUTSIDE RECORDS SUMMARY | 2024-03-23 16:01 | XMS_ITS | Encounter Summary ---
Author Organization [facility] Address [address] [place] [address] Care Team Providers Care Customer Relations Specialist Name Role Phone Lita Oseguera Unavailable Unavailable Marija Edgar APRN HOSPICE EDUCATOR Primary Care Provider + Marija Edgar APRN HOSPICE EDUCATOR Unavailable [phone] Keisha Dotson MD Unavailable [phone] Diana Desir [facility] Unavailable [phone] Rain Galaviz PA-C Unavailable Tavia Wyatt MD Unavailable Unavailable Erica Farrell APRN HOSPICE EDUCATOR Unavailable Rich Barrett MD Unavailable [phone] Neil Kent MD Unavailable Diana Desir [facility] Unavailable [phone] Livan Sharif MD Unavailable Catherine Cm MD Unavailable + Valery Veronica PA-C Unavailable [phone] Catherine Cm MD Unavailable + Brea Quinn APRN HOSPICE EDUCATOR Unavailable [phone] [place], Brea P COAL AND ASH SUPERVISOR HOSPICE EDUCATOR Unavailable [phone] Jose Francisco Johnson MD Unavailable Livan Sharif MD Unavailable Catherine Cm MD Unavailable + Sydnie Martinez RN Unavailable Unavailable Alfonso Renteria MD Unavailable [phone] Esha Grimm PA-C Primary Care Provider Cheng Todd PA-C Unavailable Armani Radha Sia COAL AND ASH SUPERVISOR HOSPICE EDUCATOR Unavailable Jelena David OD Unavailable Pao Joseph RN Unavailable Unavailable Esha Grimm PA-C Unavailable [phone] Valery Veronica PA-C Unavailable Rey Tay MD Unavailable Rocky Zepeda DO Unavailable Philip Dumont MD Unavailable Meredith Carrera PA-C Unavailable [phone] Neil Kent MD Unavailable Juan Pablo Emmanuel MD Unavailable Audrey Waite PA-C Unavailable Encounter Details Date Type Department Care Team (Late st Contact Info) Description 10/22/2022 [facility] Medical Advice [facility] [place] [address] [facility] [address] [place] [address] [place] [address] [facility] [address] [place] [address] Social History Tobacco Use Types Packs/Day Years [...] How often do you attend jewish or buddhism serv ices? Never 09/22/2021 Do [...] Answer Date Recorded PHQ-2 Score 1 10/11/2022 [facility] [...] in a halfway (including now)? No 09/22/2021 [place] Depression Scale Answer Date Recorded [place] [...] [facility] Spine and Neurosurgery [address] [place] [address] 100 [place] [address] Ebony Cid, COAL AND ASH SUPERVISOR [facility] 500 [place], [place] 6[address] 03/27/2024 11:00 AM CDT Office Visit [facility] [place] [address] [facility] [address] [place] [phone] J[place] David, [place] [address] [facility] [place] [address] 03/29/2024 3:30 PM CDT Therapy Visit [facility] [address] [place] [address] 160 [place] [phone] Ingris Thompson, PT [facility] [address] [facility] 106 [place] [address] 04/05/2024 2:10 PM CDT Therapy Visit [facility] [address] [place] [address] [address] [place] [phone] Ingris Thompson, PT [facility] [address] [facility] [address] [place], [place] [address] 04/19/2024 2:45 PM CDT Office Visit [facility] 830 [place] [phone] Audrey Waite PA-C [address], [facility] [address] [place], [place] 6460[address] 05/08/2024 1:30 PM CDT Office Visit [facility] [address] [place] [phone] Lauren Claudio PA-C [address] [place], [place] [phone] Esha Grimm PA-C [address] [place] [address] 06/21/2024 2:00 PM TOOL DISPATCHER Office Visit [facility] Neurology Clinics - [address], [address] [place] [phone] [place] [address] [place], [place] [address] Johnny Penn MD 6545 [place] [address] documented as of this encounter [...] as of this encounter Care Teams Customer Relations Specialist Relationship Specialty Start Date End Date Marija Edgar APRN HOSPICE EDUCATOR PCP - General Nurse Practitioner 04/30/20 04/14/23 Esha Grimm PA-C [address] [place] [address] PCP - General Family Medicine 05/04/23 Lita Oseguera Personal Advocate & Liaison (PAL) 02/28/20 03/27/23 Marija Edgar APRN HOSPICE EDUCATOR Assigned PCP 06/08/20 04/29/23 Keisha Dotson MD 9[address] [place] [address] Assigned Neuroscience Provider 06/04/20 04/01/23 Diana Desir, [facility] 30[address] [place] [address] Pharmacist Pharmacist 04/17/21 Rain Galaviz PA-C [address] [facility] [address] [facility] [place] [address] Physician Properties Supervisor Dermatology 04/28/21 Tavia Wyatt MD [address] [place] [address] DR [address] [facility] [place] [address] Dermatology 07/14/21 Erica Farrell APRN HOSPICE EDUCATOR [address] [place] [address] Nurse Practitioner Cardiovascular Disease 09/09/21 Rich Barrett MD [address] [place] [address] 853345 Physician Ophthalmology 01/21/22 Neil Kent MD [address] [place] [address] 551385 Dermatology 02/24/22 [facility] [address] [place] [address] Assigned MTM Pharmacist 04/07/22 Livan Sharif MD [address] [place] [address] Cardiovascular Disease 05/14/22 Catherine Cm MD [address] [place] [address] Cardiovascular Disease 07/21/22 Valery Veronica, PA-C [address] [place] [address] 811485 Physician Properties Supervisor Dermatology 07/21/22 Catherine Cm MD [address] [place] 7[address] Assigned Heart and Vascular Provider 07/24/22 11/05/22 Brea Quinn APRN HOSPICE EDUCATOR 500 [place] [address] Nurse Practitioner Dermatology 09/21/22 Brea Quinn APRN HOSPICE EDUCATOR [address] [place] [address] Assigned Surgical Provider 10/09/22 [place] [address] [facility] 300 [place] [address] Assigned Musculoskeletal Provider 10/09/22 Livan Sharif MD [address], [facility] [address] [place] [address] Assigned Heart and Vascular Provider 11/06/22 11/12/22 Catherine Cm MD [address] [facility] [address] [place] [address] Assigned Heart and Vascular Provider 11/13/22 05/27/23 Sydnie Martinez RN Personal Advocate & Liaison (PAL) Family Medicine 03/28/23 07/31/23 Alfonso Renteria MD [address] [facility] 200 [place], [place] 584116 Assigned Neuroscience Provider 04/02/23 Cheng Todd PA-C [address] [place] [address] [id number] Assigned PCP 04/30/23 07/15/23 Radha Lomeli APRN HOSPICE EDUCATOR [address] [facility] [address] [place], [place] 7348[address] Assigned Heart and Vascular Provider 05/28/23 Jelena David OD [address] [facility] [place] [address] MD Ophthalmology 06/15/23 Pao Joseph, VJ Personal Advocate & Liaison (PAL) Nurse 08/01/23 11/07/23 Esha Grimm PA-C [address] [place] [phone] Assigned PCP 07/16/23 Valery Veronica PA-C [address] [place] [address] 664615 Physician Properties Supervisor Dermatology 09/19/23 Rey Tay MD [address] [place] [address] 988795 MD Gastroenterology 09/20/23 Rocky Zepeda DO [address] [place] [address] 243865 Physician Gastroenterology 09/20/23 Philip Dumont MD [address] [place] [address] 540705 Physician Ophthalmology 09/22/23 Meredith Carrera PA-C [address] [place] [address] 390535 Assigned Gastroenterology Provider 11/01/23 Neil Kent MD [address] [address] Dermatology 11/02/23 [place] [address] 973727 Neurological Surgery 12/26/23 Audrey Waite, PAUcheC 500 [place], [place] 015155 Physician Properties Supervisor Dermatology 02/28/24 documented as of this encounter
--- OUTSIDE RECORDS SUMMARY | 2024-03-23 16:01 | XMS_ITS | Encounter Summary ---
Author Organization [facility] Address [address] [place] [address] Care Team Providers Care Team Cdl Driver Name Role Phone Lita Oseguera Unavailable Unavailable Marija Edgar APRN TEACHING MANAGER Primary Care Provider + Marija Edgar APRN TEACHING MANAGER Unavailable + [phone] Keisha Dotson MD Unavailable [phone] Diana Desir [facility] Unavailable [phone] Rain Galaviz PA-C Unavailable [phone] Tavia Wyatt MD Unavailable Unavailable Erica Farrell APRN TEACHING MANAGER Unavailable Rich Barrett MD Unavailable [phone] Neil Kent MD Unavailable Diana Desir [facility] Unavailable [phone] Livan Sharif MD Unavailable Catherine Cm MD Unavailable + Valery Veronica PA-C Unavailable [phone] Brea Quinn APRN TEACHING MANAGER Unavailable Brea Quinn PIECE WORKER TEACHING MANAGER Unavailable [phone] Jose Francisco Johnson MD Unavailable Catherine Cm MD Unavailable + Sydnie Martinez RN Unavailable Unavailable Alfonso Renteria MD Unavailable [phone] Esha Grimm PA-C Primary Care Provider Cheng Todd PA-C Unavailable Radha Lomeli APRN TEACHING MANAGER Unavailable Jelena David OD Unavailable Pao Joseph RN Unavailable Unavailable Esha Grimm PA-C Unavailable Valery Veronica PA-C Unavailable Rey Tay MD Unavailable Rocky Zepeda DO Unavailable Philip Dumont MD Unavailable Meredith Carrera PA-C Unavailable [phone] Neil Kent MD Unavailable Juan Pablo Emmanuel MD Unavailable Audrey Waite PA-C Unavailable Encounter Details Date Type Department Care Team (Late st Contact Info) Description 01/10/2023 [facility] Medical Advice [facility] [address] [place] [address] Lauren Claudio PA-C [address] [place] [address] Social History Tobacco Use Types [...] How often do you attend advent or orthodox serv ices? Never 09/22/2021 Do [...] Date Recorded PHQ-2 Score 1 10/11/2022 [facility] of Occupat ional [...] in a half-way (including now)? No 09/22/2021 [place] Depression Scale Answer Date Recorded [place] Depression Score 5 01/14/2021 Last EPDS [...] - 02/03/2023 11:52 AM CDT Incoming call Mica Inspector: Rosalva Rimforest [facility] referral following up on [facility] med information that is needed to be faxed at [phone] Erica David MA documented in this encounter Plan of Treatment Upcoming Encounters Date Type Department Care Team (Late st Contact Info) Description 03/26/2024 11:20 AM CDT Office Visit [facility] Spine and Neurosurgery [address] [facility] [address] [place] [address] Ebony Cid APRN [facility] 500 [place] [address] 03/27/2024 11:00 AM CDT Office Visit [facility] [place] [address] [facility] [address] [place] [phone] Jelena David, SONJA [address] [facility] [place] [address] 03/29/2024 3:30 PM CDT Therapy Visit [facility] Rehabilitation Services [address] [place] [phone] Ingris Thompson, PT [facility] 516 [facility] 106 [place], [place] [address] 04/05/2024 2:10 PM CDT Therapy Visit [facility] Rehabilitation Services [place] [address] [facility] [address] [place] [phone] Ingris Thompson, PT [facility] 516 [facility] 106 [place] [address] 04/19/2024 2:45 PM CDT Office Visit [address] [phone] Audrey Waite PA-C 420 [facility] [address], [facility] 603 [place], [place] [address]605 05/08/2024 1:30 PM CDT Office Visit [facility] [address] [place] [phone] Lauren Claudio PA-C [address] [place], [place] [phone] Esha Grimm PA-C [address] [place] [address] 06/21/2024 2:00 PM CARDIOPULMONARY TECHNOLOGIST CHIEF Office Visit [facility] Neurology Clinics - [address], [address] [place] [address] [place] [address] [place], [place] [phone] Johnny Penn MD [address]39 [place] [address] documented as of this encounter Visit Diagnoses Not on filedocumented in this encounter Additional Health Concerns Infection Onset Date Last Indicated Resolved Time Rule Out COVID-19 03/07/2023 03/07/2023 03/07/2023 1:20 PM CDT Rule Out COVID-19 12/26/2023 12/26/2023 12/26/2023 9:50 AM CDT Assessment Noted Time PHQ-9 Depression Total Score: 5 10/11/19 8:58 AM CDT documented as of this encounter Care Teams Team Cdl Driver Relationship Specialty Start Date End Date Marija Edgar APRN TEACHING MANAGER PCP - General Nurse Practitioner 04/30/20 04/14/23 Esha Grimm PA-C [address] [place] [address]392783 PCP - General Family Medicine 05/04/23 Lita Oseguera Personal Advocate & Liaison (PAL) 02/28/20 03/27/23 Marija Edgar APRN TEACHING MANAGER Assigned PCP 06/08/20 04/29/23 Keisha Dotson MD 909 [place] [address] Assigned Neuroscience Provider 06/04/20 04/01/23 Diana Desir [facility] 3033 [place] [address] Pharmacist Pharmacist 04/17/21 Rain Galaviz PA-C [address] [place] [address] [address] [place] [address] Physician Switchboard Manager Dermatology 04/28/21 Tavia Wyatt MD [address] [place] [address] [place] [address] Dermatology 07/14/21 Erica Farrell APRN TEACHING MANAGER [address] [place] [address] Nurse Practitioner Cardiovascular Disease 09/09/21 Rich Barrett MD [address] 185865 Physician Ophthalmology 01/21/22 Neil Kent MD [address] [place] [address] 383835 Dermatology 02/24/22 Diana Desir, [facility] [address] [place] [address] 688026 Assigned [place] Pharmacist 04/07/22 Livan Sharif MD [address], [facility]00 [place], [place] [address] Cardiovascular Disease 05/14/22 Catherine Cm MD [address] [facility] [place] 430[address] Cardiovascular Disease 07/21/22 Valery Veronica, PA-C [address] [place] [address] 590045 Physician Switchboard Manager Dermatology 07/21/22 Brea Quinn APRN TEACHING MANAGER 500 [place], [place] 123815 Nurse Practitioner Dermatology 09/21/22 Brea Quinn APRN TEACHING MANAGER 6401 [facility] [place] [address] Assigned Surgical Provider 10/09/22 [place] [address] [address] [facility] 300 [place], [place] 153607 Assigned Musculoskeletal Provider 10/09/22 Catherine Cm MD [address] [place] [address] Assigned Heart and Vascular Provider 11/13/22 05/27/23 Sydnie Martinez RN Personal Advocate & Liaison (PAL) Family Medicine 03/28/23 07/31/23 Alfonso Renteria MD 5775 [facility] 200 [place], [place] 513226 Assigned Neuroscience Provider 04/02/23 Cheng Todd PA-C [address] [place] [address] [id number] Assigned PCP 04/30/23 07/15/23 Radha Lomeli APRN TEACHING MANAGER [address] [facility] [address] [place] [address] Assigned Heart and Vascular Provider 05/28/23 Jelena David OD [address] [place] [address] MD Ophthalmology 06/15/23 Pao Joseph, RN Personal Advocate & Liaison (PAL) Nurse 08/01/23 11/07/23 Esha Grimm PA-C [address] [place] [address]876183 Assigned PCP 07/16/23 Valery Veronica PA-C [address] [place] [address] 968805 Physician Switchboard Manager Dermatology 09/19/23 Rey Tay MD [address] [place] [address] 080505 MD Gastroenterology 09/20/23 Rocky Zepeda DO [address] [place] [address] 311355 Physician Gastroenterology 09/20/23 Philip Dumont MD [address] [place] [address] 083065 Physician Ophthalmology 09/22/23 Meredith Carrera PA-C [address] [place] [address] Assigned Gastroenterology Provider 11/01/23 Neil Kent MD [address] [address] Dermatology 11/02/23 [place] [address] [place] [address] Neurological Surgery 12/26/23 Audrey Waite PA-C 500 [place], [place] 764655 Physician Switchboard Manager Dermatology 02/28/24 documented as of this encounter
--- OUTSIDE RECORDS SUMMARY | 2024-03-23 16:01 | XMS_ITS | Encounter Summary ---
Author Organization [facility] Address [address] [place] [address] Care Team Providers Care Coastal/Harbor Defense Officer Name Role Phone Marija Edgar APRN BOBBIN DOFFER Primary Care Provider + Marija Edgar APRN BOBBIN DOFFER Unavailable [phone] Diana Desir [facility] Unavailable [phone] Rain Galaviz PA-C Unavailable [phone] Tavia Wyatt MD Unavailable Unavailable Erica Farrell APRN BOBBIN DOFFER Unavailable Rich Barrett MD Unavailable [phone] Neil Kent MD Unavailable Diana Desir [facility] Unavailable [phone] Livan Sharif MD Unavailable Catherine Cm MD Unavailable + Valery Veronica PA-C Unavailable [phone] Brea Quinn APRN BOBBIN DOFFER Unavailable [phone] Brea Quinn APRN BOBBIN DOFFER Unavailable [phone] Jose Francisco Johnson MD Unavailable Catherine Cm MD Unavailable + Sydnie Martinez RN Unavailable Unavailable Alfonso Renteria MD Unavailable [phone] Esha Grimm PA-C Primary Care Provider [phone] Cheng Todd PA-C Unavailable Radha Lomeli APRN BOBBIN DOFFER Unavailable Jelena David OD Unavailable Pao Joseph RN Unavailable Unavailable Esha Grimm PA-C Unavailable [phone] Valery Veronica PA-C Unavailable Rey Tay MD Unavailable Rocky Zepeda DO Unavailable Philip Dumont MD Unavailable Meredith Carrera PA-C Unavailable [phone] Neil Kent MD Unavailable Juan Pablo Emmanuel MD Unavailable [phone] Audrey Waite PA-C Unavailable Encounter Details Date Type Department Care Team (Late st Contact Info) Description 04/12/2023 [facility] Medical Advice [facility] Heart [facility] [address] [facility] [address] [place] [address] Livan Sharif MD [address] [place] [address] Social History Tobacco Use Types [...] do you attend select specialty hospital or episcopalian services? 1 to 4 times [...] Answer Date Recorded PHQ-2 Score 0 03/10/2023 [facility] [place] of Occupat ional Health - Occupational Stress [...] slept in a alf (including now)? No 03/10/2023 [place] Depression Scale Answer Date Recorded [place] Depression Score 5 01/14/2021 Last EPDS [...] Thank you. Kim Swann, We are in [place], but asked a tech here to check the photo. He said the spot you chose is OK but he thinks we should have the [employer] [facility] techs check in with you as you may need to have some extra prep gelif you have have issues with the pads. We are reaching out to that [employer] [facility] team to let them know you are having some issues. Team [address] [place] [address] Sharif [phone] documented in this encounter Plan of Treatment Upcoming Encounters Date Type Department Care Team (Late st Contact Info) Description 03/26/2024 11:20 AM CDT Office Visit [facility] Spine and Neurosurgery [address] [place] [address] [address] [place] [phone] Ebony Cid, PERSONAL SUPPORT WORKER [facility] 500 [place] [address] 03/27/2024 11:00 AM CDT Office Visit [address] [place] [phone] Frankie Jelena Garcia, [place] [address] [facility] [address] [place] [address] 03/29/2024 3:30 PM CDT Therapy Visit [facility] [address] [place] [address] 160 [place] [phone] Ingris Thompson, PT [facility] [address] [place] [address] 106 [place] [address] 04/05/2024 2:10 PM CDT Therapy Visit [facility] [address] [place] [address] 160 [place] [phone] Ingris Thompson, PT [facility] [address] [place] [address] 106 [place] [address] 04/19/2024 2:45 PM CDT Office Visit [address] [phone] Audrey Waite PA-C [address] [facility] [address], [facility] 603 [place] [address] 05/08/2024 1:30 PM CDT Office Visit [facility] [address] [place] [phone] Lauren Claudio PA-C [address] [place], [place] [phone] Esha Grimm PA-C [address] [place] [phone] 06/21/2024 2:00 PM HOT METAL MIXER OPERATOR Office Visit [facility] [place] [address] [facility], [address] [place] [phone] [place] [address] [place] 858137 Johnny Penn MD [address]42 [facility] [place] [id number] documented as of this encounter Visit Diagnoses Not on filedocumented in this encounter Additional Health Concerns Infection Onset Date Last Indicated Resolved Time Rule Out COVID-19 12/26/2023 12/26/2023 12/26/2023 9:50 AM CDT Assessment Noted Time PHQ-9 Depression Total Score: 5 03/10/20 6:49 AM CDT documented as of this encounter Care Teams Coastal/Harbor Defense Officer Relationship Specialty Start Date End Date Marija Edgar APRN BOBBIN DOFFER PCP - General Nurse Practitioner 04/30/20 04/14/23 Esha Grimm PA-C [address] [place] [address]387[address] PCP - General Family Medicine 05/04/23 Marija Edgar APRN BOBBIN DOFFER Assigned PCP 06/08/20 04/29/23 Diana Desir, [facility] [address] [place] [address] Pharmacist Pharmacist 04/17/21 Rain Galaviz PA-C [address] [place] [address] [address] [place] [id number] Physician Peer Specialist Dermatology 04/28/21 Tavia Wyatt MD [address] [place] [address] [address] [facility] [place] [address] Dermatology 07/14/21 Erica Farrell APRN BOBBIN DOFFER [address] [place] [address] Nurse Practitioner Cardiovascular Disease 09/09/21 Rich Barrett MD [address] 427025 Physician Ophthalmology 01/21/22 Neil Kent MD [address] [place] [address] 577335 Dermatology 02/24/22 [facility] 3033 [place], [place] 310756 Assigned [place] Pharmacist 04/07/22 Livan Sharif MD [address] [place] [address] Cardiovascular Disease 05/14/22 Catherine Cm MD [address] [facility] [place] [address] Cardiovascular Disease 07/21/22 Valery Veronica, PA-C [address] [place] [address] Physician Peer Specialist Dermatology 07/21/22 Brea Quinn APRN BOBBIN DOFFER 500 [place] [address] Nurse Practitioner Dermatology 09/21/22 Brea Quinn APRN BOBBIN DOFFER [address] [place] [address] Assigned Surgical Provider 10/09/22 [place] [address] [place] [address] Assigned Musculoskeletal Provider 10/09/22 Catherine Cm MD [address] [place] [id number] Assigned Heart and Vascular Provider 11/13/22 05/27/23 Sydnie Martinez RN Personal Advocate & Liaison (PAL) Family Medicine 03/28/23 07/31/23 Alfonso Renteria MD 5775 [facility] 200 [place] [address] Assigned Neuroscience Provider 04/02/23 Cheng Todd PA-C [address] [place] [address] [id number] Assigned PCP 04/30/23 07/15/23 Radha Lomeli APRN BOBBIN DOFFER [address] [place] 166375 Assigned Heart and Vascular Provider 05/28/23 Jelena David OD [address] [facility] [place] [address] MD Ophthalmology 06/15/23 Pao Joseph, RN Personal Advocate & Liaison (PAL) Nurse 08/01/23 11/07/23 Esha Grimm PA-C [address] [place] [address]83 Assigned PCP 07/16/23 Valery Veronica PA-C [address] [place] [address] Physician Peer Specialist Dermatology 09/19/23 Rey Tay MD [address] [place] [address] 884455 MD Gastroenterology 09/20/23 Rocky Zepeda DO [address] [place] [address] 189915 Physician Gastroenterology 09/20/23 Philip Dumont MD [address] [place] [address] 569395 Physician Ophthalmology 09/22/23 Meredith Carrera PA-C [address] [place] [address] 668275 Assigned Gastroenterology Provider 11/01/23 Neil Kent MD [address] [phone] Dermatology 11/02/23 [place] [address] [place] [address] Neurological Surgery 12/26/23 Audrey Waite PA-C 500 [place], [place] 6[address] Physician Peer Specialist Dermatology 02/28/24 documented as of this encounter
--- OUTSIDE RECORDS SUMMARY | 2024-03-23 16:01 | XMS_ITS | Encounter Summary ---
Author Organization [facility] Address [address] [place] [address] Care Team Providers Care Desk Manager Name Role Phone Lita Oseguera Unavailable Unavailable Marija Edgar APRN CESSATION SYSTEMS OUTREACH SPECIALIST Primary Care Provider + Marija Edgar APRN CESSATION SYSTEMS OUTREACH SPECIALIST Unavailable + [phone] Keisha Dotson MD Unavailable [phone] Diana Desir [facility] Unavailable [phone] Rain Galaviz PA-C Unavailable [phone] Tavia Wyatt MD Unavailable Unavailable Erica Farrell APRN CESSATION SYSTEMS OUTREACH SPECIALIST Unavailable Rich Barrett MD Unavailable [phone] Neil Kent MD Unavailable Diana Desir [facility] Unavailable [phone] Livan Sharif MD Unavailable Catherine Cm MD Unavailable + Valery Veronica PA-C Unavailable [phone] Brea Quinn APRN CESSATION SYSTEMS OUTREACH SPECIALIST Unavailable Brea Quinn FACING BASTER JUMPBASTING CESSATION SYSTEMS OUTREACH SPECIALIST Unavailable [phone] Jose Francisco Johnson MD Unavailable Catherine Cm MD Unavailable + Sydnie Martinez RN Unavailable Unavailable Alfonso Renteria MD Unavailable [phone] Esha Grimm PA-C Primary Care Provider Cheng Todd PA-C Unavailable Radha Lomeli APRN CESSATION SYSTEMS OUTREACH SPECIALIST Unavailable Jelena David OD Unavailable Pao Joseph RN Unavailable Unavailable Esha Grimm PA-C Unavailable [phone] Valery Veronica PA-C Unavailable Rey Tay MD Unavailable Rocky Zepeda DO Unavailable Philip Dumont MD Unavailable [phone] Meredith Carrera PA-C Unavailable Neil Kent MD Unavailable Juan Pablo Emmanuel MD Unavailable [phone] Audrey Waite PA-C Unavailable [phone] Encounter Details Date Type Department Care Team (Late st Contact Info) Description 12/23/[address] [facility] [address] [place] [address] Lauren Claudio PA-C [address] [place] [address] Social History Tobacco Use Types [...] How often do you attend latter-day or restoration serv ices? Never 09/22/2021 Do [...] Answer Date Recorded PHQ-2 Score 1 10/11/2022 [facility] of Occupat ional Health [...] in a chcf (including now)? No 09/22/2021 [place] Depression Scale Answer Date Recorded [place] Depression Score 5 01/14/2021 Last EPDS Self [...] Description 03/26/2024 11:20 AM CDT Office Visit [facility] Spine and Neurosurgery [address] [facility] [address] [place] [phone] Ebony Cid, FACING BASTER JUMPBASTING CESSATION SYSTEMS OUTREACH SPECIALIST 500 [place] [address] 03/27/2024 11:00 AM CDT [facility] [address] [facility] [address] [place] [phone] Jelena David, [address] [facility] [place] [address] 03/29/2024 3:30 PM CDT Therapy Visit [facility] [address] [facility] 160 [place] [phone] Ingris Thompson, PT [facility] 6 [facility] 106 [place] [address] 04/05/2024 2:10 PM CDT Therapy Visit [facility] [address] [facility] 160 [place] [phone] Ingris Thompson, PT [facility] [address] [place] [address] 106 [place] [address] 04/19/2024 2:45 PM CDT Office Visit [facility] 830 [place] [phone] Audrey Waite PA-C 420 [facility] [address]385, [facility] 603 [place] [address] 05/08/2024 1:30 PM CDT Office Visit [facility] [address] [place] [phone] Lauren Claudio PA-C [address] [place] [address] Esha Grimm PA-C [address] [place] [address] 06/21/2024 2:[address]GE Office Visit [facility] [place] [address] [facility], [address] [place] [address] [place] [address] [place] [address] Johnny Penn MD 6545 [place], [place] [phone] documented as of this encounter Visit Diagnoses Not on filedocumented in this encounter Additional Health Concerns Infection Onset Date Last Indicated Resolved Time Rule Out COVID-19 03/07/2023 03/07/2023 03/07/2023 1:20 PM CDT Rule Out COVID-19 12/26/2023 12/26/2023 12/26/2023 9:50 AM CDT Assessment Noted Time PHQ-9 Depression Total Score: 5 10/11/19 8:58 AM CDT documented as of this encounter Care Teams Desk Manager Relationship Specialty Start Date End Date Marija Edgar APRN CNP PCP - General Nurse Practitioner 04/30/20 04/14/23 Esha Grimm PA-C [address] [place] [address] PCP - General Family Medicine 05/04/23 Lita Oseguera Personal Advocate & Liaison (PAL) 02/28/20 03/27/23 Marija Edgar APRN CESSATION SYSTEMS OUTREACH SPECIALIST Assigned PCP 06/08/20 04/29/23 Keisha Dotson MD [address] [place] [address] 338605 Assigned Neuroscience Provider 06/04/20 04/01/23 [facility] 3033 [place] [address] Pharmacist Pharmacist 04/17/21 Rain Galaviz PA-C [address] [place] [address] [address] [place] [address] Physician Finance Lecturer Dermatology 04/28/21 Tavia Wyatt MD [address] [place] [address] [address] [place] [address] Dermatology 07/14/21 Erica Farrell APRN CESSATION SYSTEMS OUTREACH SPECIALIST [address] [place], [place] 392535 Nurse Practitioner Cardiovascular Disease 09/09/21 Rich Barrett MD [address] [phone] Physician Ophthalmology 01/21/22 Neil Kent MD 500 [place], [place] [phone] Dermatology 02/24/22 Diana Desir, [facility] 3033 [place] [address] Assigned MTM Pharmacist 04/07/22 Livan Sharif MD [address] [place] [address] Cardiovascular Disease 05/14/22 Catherine mC MD [address] [place] [address] Cardiovascular Disease 07/21/22 Valery Veronica, PAUcheC [address] [place] [address] 877875 Physician Finance Lecturer Dermatology 07/21/22 Brea Quinn APRN CESSATION SYSTEMS OUTREACH SPECIALIST [address] [place] [address] 585225 Nurse Practitioner Dermatology 09/21/22 Brea Quinn APRN CESSATION SYSTEMS OUTREACH SPECIALIST [address] [place] [address] 282142 Assigned Surgical Provider 10/09/22 [place] [address] [place] [address] 089687 Assigned Musculoskeletal Provider 10/09/22 Catherine Cm MD [address] [place] [address] Assigned Heart and Vascular Provider 11/13/22 05/27/23 Sydnie Martinez RN Personal Advocate & Liaison (PAL) Family Medicine 03/28/23 07/31/23 Alfonso Renteria MD 5775 [facility] [address] 200 [place] [address] Assigned Neuroscience Provider 04/02/23 Cheng Todd PA-C [address] [place] [address] Assigned PCP 04/30/23 07/15/23 Radha Lomeli APRN CESSATION SYSTEMS OUTREACH SPECIALIST 6405 [facility] [address] [place] [address] Assigned Heart and Vascular Provider 05/28/23 Jelena David OD [address] [facility] [place] [address] Ophthalmology 06/15/23 Pao Joseph, VJ Personal Advocate & Liaison (PAL) Nurse 08/01/23 11/07/23 Esha Grimm PA-C [address] [place] [address] Assigned PCP 07/16/23 Valery Veronica PA-C 9 [place], [place] 24[address]95 Physician Finance Lecturer Dermatology 09/19/23 Rey Tay MD 909 [place] [address] Gastroenterology 09/20/23 Rocky Zepeda DO 500 [place] [address] Physician Gastroenterology 09/20/23 Philip Dumont MD 6 [place] [address] Physician Ophthalmology 09/22/23 Meredith Carrera PA-C [address] [place] [address] Assigned Gastroenterology Provider 11/01/23 Neil Kent MD [address] [address] Dermatology 11/02/23 [place] [address] [address] Neurological Surgery 12/26/23 Audrey Waite PA-C 500 [place] [address] Physician Finance Lecturer Dermatology 02/28/24 documented as of this encounter
--- OUTSIDE RECORDS SUMMARY | 2024-03-23 16:01 | XMS_ITS | Encounter Summary ---
Author Organization [place] Address [address] [place] [address] Care Team Providers Care Call Circuit Worker Name Role Phone Lita Oseguera Unavailable Unavailable Marija Edgar APRN AIRPLANE PATROLLER Primary Care Provider + Marija Edgar APRN AIRPLANE PATROLLER Unavailable [phone] Keisha Dotson MD Unavailable [phone] Diana Desir [facility] Unavailable [phone] Rain Galaviz PA-C Unavailable Tavia Wyatt MD Unavailable Unavailable Erica Farrell APRN AIRPLANE PATROLLER Unavailable Rich Barrett MD Unavailable [phone] Neil Kent MD Unavailable Diana Desir [facility] Unavailable [phone] Livan Sharif MD Unavailable Catherine Cm MD Unavailable + Valery Veronica PA-C Unavailable [phone] Catherine Cm MD Unavailable + Brea Quinn APRN AIRPLANE PATROLLER Unavailable [phone] [place], Brea P LEAF FAT SCRAPER AIRPLANE PATROLLER Unavailable Jose Francisco Johnson MD Unavailable Livan Sharif MD Unavailable Catherine Cm MD Unavailable + Sydnie Martinez RN Unavailable Unavailable Alfonso Renteria MD Unavailable [phone] Esha Grimm PA-C Primary Care Provider Cheng Todd PA-C Unavailable Radha Lomeli LEAF FAT SCRAPER AIRPLANE PATROLLER Unavailable Jelena David OD Unavailable Pao Joseph RN Unavailable Unavailable Esha Grimm PA-C Unavailable [phone] Valery Veronica PA-C Unavailable Rey Tay MD Unavailable Rocky Zepeda DO Unavailable Philip Dumont MD Unavailable Meredith Carrera PA-C Unavailable [phone] Neil Kent MD Unavailable Juan Pablo Emmanuel MD Unavailable Audrey Waite PA-C Unavailable Reason for Visit * Reason Onset Date Comments MyChart Communication 10/27/2022 Encounter Details Date Type Department Care Team (Late st Contact Info) Description 10/27/2022 [facility] 64[address] [facility] [place] [address] Brea Quinn, LEAF FAT SCRAPER AIRPLANE PATROLLER [address] [facility] [place] [address] MyChart Communication (/) Social History Tobacco [...] How often do you attend scientologist or yarsanism serv ices? Never 09/22/2021 Do [...] Answer Date Recorded PHQ-2 Score 1 10/11/2022 [facility] - Occupational Stress Questionnaire [...] in a mcc (including now)? No 09/22/2021 [place] Depression Scale Answer Date Recorded [place] Depression Score 5 01/14/2021 Last EPDS Self [...] and advise. Letha Driver RN [facility] [phone] documented in this encounter Plan of Treatment Upcoming Encounters Date Type Department Care Team (Late st Contact Info) Description 03/26/2024 11:20 AM CDT Office Visit [facility] 1747 [facility] 100 [place] [phone] Ebony Cid, LEAF FAT SCRAPER [facility] 500 [place] [address] 03/27/2024 11:00 AM CDT Office Visit [facility] [address] [facility] [address] [place] [phone] Jelena David, [address] [facility] [place] [address] 03/29/2024 3:30 PM CDT Therapy Visit [facility] [address] [place] [address] 160 [place] [phone] Ingris Thompson, PT [facility] 6 [facility] 106 [place] [address] 04/05/2024 2:10 PM CDT Therapy Visit [facility] [address] [place] [address] 160 [place] [phone] Ingris Thompson, PT [facility] [address] [facility] 106 [place], [place] [address] 04/19/2024 2:45 PM CDT Office Visit [facility] [address] [facility] [place] [place] [phone] Audrey Waite PA-C [address], [facility] 603 [place] [address] 05/08/2024 1:30 PM CDT Office Visit [facility] [address] [place] [phone] Lauren Claudio PA-C [address] [place], [place] [phone] Esha Grimm PA-C [address] [place] [address] 06/21/2024 2:00 PM STORE OPERATIONS SPECIALIST Office Visit [facility] - [address], [address] [place] [address] [place] [address] [address] [place] [id number] Johnny Penn MD [address] [place] [address] documented as of this encounter Visit Diagnoses [...] documented as of this encounter Care Teams Call Circuit Worker Relationship Specialty Start Date End Date Marija Edgar APRN AIRPLANE PATROLLER PCP - General Nurse Practitioner 04/30/20 04/14/23 Esha Grimm PA-C [address] [place] [phone] PCP - General Family Medicine 05/04/23 Lita Oseguera Personal Advocate & Liaison (PAL) 02/28/20 03/27/23 Marija Edgar APRN AIRPLANE PATROLLER Assigned PCP 06/08/20 04/29/23 Keisha Dotson MD 909 [place], [place] 967805 Assigned Neuroscience Provider 06/04/20 04/01/23 Diana Desir, [facility] 3033 [place] [address] Pharmacist Pharmacist 04/17/21 Rain Galaviz PA-C [address] [place] [address] [place] [address] Physician Analyst Microbiology Lab Dermatology 04/28/21 Tavia Wyatt MD [address] [place] [address] [address] [place] [address] Dermatology 07/14/21 Erica Farrell APRN AIRPLANE PATROLLER [address] [place] [address] Nurse Practitioner Cardiovascular Disease 09/09/21 Rich Barrett MD [address] 088365 Physician Ophthalmology 01/21/22 Neil Kent MD [address] [place] [address]45 Dermatology 02/24/22 Diana Desir, [facility] 30[address] [place], [place] 806936 Assigned MTM Pharmacist 04/07/22 Livan Sharif MD [address] [facility] [address] [place] [address] Cardiovascular Disease 05/14/22 Catherine Cm MD [address] [place] [address] Cardiovascular Disease 07/21/22 Valery Veronica, PA-C 909 [place], [place] 611725 Physician Analyst Microbiology Lab Dermatology 07/21/22 Catherine Cm MD [address] [place] [address] Assigned Heart and Vascular Provider 07/24/22 11/05/22 Brea Quinn APRN AIRPLANE PATROLLER 500 [place] [address] Nurse Practitioner Dermatology 09/21/22 Brea Quinn APRN AIRPLANE PATROLLER 6401 [place], [place] 877602 Assigned Surgical Provider 10/09/22 [place] [address] [facility] 300 [place], [place] 606707 Assigned Musculoskeletal Provider 10/09/22 Livan Sharif MD [address] [facility] [address] [place], [place] 759565 Assigned Heart and Vascular Provider 11/06/22 11/12/22 Catherine Cm MD [address] [facility] [address] [place] [address] Assigned Heart and Vascular Provider 11/13/22 05/27/23 Sydnie Martinez RN Personal Advocate & Liaison (PAL) Family Medicine 03/28/23 07/31/23 Alfonso Renteria MD 5775 [facility] 200 [place], [place] 774136 Assigned Neuroscience Provider 04/02/23 Cheng Todd PA-C [address] [place] [address] Assigned PCP 04/30/23 07/15/23 Radha Lomeli, LEAF FAT SCRAPER AIRPLANE PATROLLER 6405 [facility] [address] [place] [address] Assigned Heart and Vascular Provider 05/28/23 Jelena David OD [address] [facility] [place] [address] MD Ophthalmology 06/15/23 Pao Joseph, VJ Personal Advocate & Liaison (PAL) Nurse 08/01/23 11/07/23 Esha Grimm PA-C [address] [place] [phone] Assigned PCP 07/16/23 Valery Veronica PA-C [address] [place] [address] 765885 Physician Analyst Microbiology Lab Dermatology 09/19/23 Rey Tay MD [address] [place] [address] 006885 Gastroenterology 09/20/23 Rocky Zepeda DO [address] [place] [address] 549615 Physician Gastroenterology 09/20/23 Philip Dumont MD [address] [place] [address] 953435 Physician Ophthalmology 09/22/23 Meredith Carrera PA-C [address] [place] [address] 001755 Assigned Gastroenterology Provider 11/01/23 Neil Kent MD [address] [place] [address] Dermatology 11/02/23 [place] [address] [place], [place] 969917 Neurological Surgery 12/26/23 Audrey Waite PA-C 500 [place], [place] 247665 Physician Analyst Microbiology Lab Dermatology 02/28/24 documented as of this encounter
--- OUTSIDE RECORDS SUMMARY | 2024-03-23 16:01 | XMS_ITS | Encounter Summary ---
Author Organization [place] Address [address] [place] [address] Care Team Providers Care Core Stacker Name Role Phone Lita Oseguera Unavailable Unavailable Marija Edgar APRN GLOBAL COMPENSATION ANALYST Primary Care Provider + Marija Edgar APRN GLOBAL COMPENSATION ANALYST Unavailable [phone] Keisha Dotson MD Unavailable [phone] Diana Desir [facility] Unavailable [phone] Rain Galaviz PA-C Unavailable Tavia Wyatt MD Unavailable Unavailable Erica Farrell APRN GLOBAL COMPENSATION ANALYST Unavailable Rich Barrett MD Unavailable [phone] Neil Kent MD Unavailable Diana Desir [facility] Unavailable [phone] Livan Sharif MD Unavailable Catherine Cm MD Unavailable + Valery Veronica PA-C Unavailable [phone] Catherine Cm MD Unavailable + Brea Quinn APRN GLOBAL COMPENSATION ANALYST Unavailable [phone] [place], Brea P SILK PRESSER GLOBAL COMPENSATION ANALYST Unavailable Jose Francisco Johnson MD Unavailable Livan Sharif MD Unavailable Catherine Cm MD Unavailable + Sydnie Martinez RN Unavailable Unavailable Alfonso Renteria MD Unavailable [phone] Esha Grimm PA-C Primary Care Provider Cheng Todd PA-C Unavailable Radha Lomeli SILK PRESSER GLOBAL COMPENSATION ANALYST Unavailable Jelena David OD Unavailable [phone] Pao Joseph RN Unavailable Unavailable Esha Grimm PA-C Unavailable [phone] Valery Veronica PA-C Unavailable Rey Tay MD Unavailable Rocky Zepeda DO Unavailable Philip Dumont MD Unavailable [phone] Meredith Carrera PA-C Unavailable Neil Kent MD Unavailable Juan Pablo Emmanuel MD Unavailable [phone] Audrey Waite PA-C Unavailable Encounter Details Date Type Department Care Team (Late st Contact Info) Description 10/22/2022 [facility] [address] [place] [address] Lauren Claudio PA-C [address] [place] [address] Social History Tobacco Use Types [...] How often do you attend rastafari or jehovah's witness serv ices? Never 09/22/2021 [...] Answer Date Recorded PHQ-2 Score 1 10/11/2022 [facility] [...] in a halfway (including now)? No 09/22/2021 [place] Depression Scale Answer Date Recorded [place] Depression Score 5 01/14/2021 Last EPDS Self [...] [facility] 1747 [facility] [address] [place] [phone] Ebony Cid, SILK PRESSER GLOBAL COMPENSATION ANALYST 500 [place] [address] 03/27/2024 11:00 AM CDT Office Visit [facility] [address] [facility] [address] [place] [phone] Jelena David, 3305 [facility] [place] [address] 03/29/2024 3:30 PM CDT Therapy Visit [facility] 81348 [facility] 160 [place] [phone] Ingris Thompson, PT [facility] [address] [place] [address] 060275 04/05/2024 2:10 PM CDT Therapy Visit [facility] [address] [facility] [address] [place] [phone] Ingris Thompson, PT [facility] [address] [place] [address] 106 [place], [place] 122145 04/19/2024 2:45 PM CDT Office Visit [address] [address] Audrey Waite, [place] 420 [facility] [address], [facility] 603 [place] [address] 05/08/2024 1:30 PM CDT Office Visit [facility] [address] [place] [phone] Lauren Claudio PA-C [address] [place], [place] [phone] Esha Grimm PA-C [address] [place] [address] 06/21/2024 2:00 PM NEWS CORRESPONDENT Office [facility] Neu[facility] [address] [place] [address], [address] [place] [address] [place] [address] [place] [address] Johnny Penn MD 6545 [place], [place] [phone] documented as of this encounter Visit Diagnoses [...] documented as of this encounter Care Teams Core Stacker Relationship Specialty Start Date End Date Marija Edgar APRN GLOBAL COMPENSATION ANALYST PCP - General Nurse Practitioner 04/30/20 04/14/23 Esha Grimm PA-C [address] [facility] [place] [address]748483 PCP - General Family Medicine 05/04/23 Lita Oseguera Personal Advocate & Liaison (PAL) 02/28/20 03/27/23 Marija Edgar APRN GLOBAL COMPENSATION ANALYST Assigned PCP 06/08/20 04/29/23 Keisha Dotson MD 9 [place] [address] Assigned Neuroscience Provider 06/04/20 04/01/23 [facility] 3033 [place], [place] 591846 Pharmacist Pharmacist 04/17/21 Rain Galaviz PA-C [address] [place] [address] [address] [place] [address] Physician Hydro Station Operator Dermatology 04/28/21 Tavia Wyatt MD [address] [place] [address] [address] [facility] [place] [address] Dermatology 07/14/21 Erica Farrell APRN GLOBAL COMPENSATION ANALYST [address] [place], [place] 953615 Nurse Practitioner Cardiovascular Disease 09/09/21 Rich Barrett MD [address] 014[address] Physician Ophthalmology 01/21/22 Neil Kent MD 500 [place], [place] 421165 Dermatology 02/24/22 Diana Desir, [facility] 3033 [place], [place] 724496 Assigned [place] Pharmacist 04/07/22 Livan Sharif MD [address], [facility] [address] [place] [address]265 Cardiovascular Disease 05/14/22 Catherine Cm MD [address] [facility]00 [place] 821305 Cardiovascular Disease 07/21/22 Valery Veronica, PA-C 909 [place], [place] 452965 Physician Hydro Station Operator Dermatology 07/21/22 Catherine Cm MD [address] [facility]00 [place], [place] 607435 Assigned Heart and Vascular Provider 07/24/22 11/05/22 Brea Quinn APRN GLOBAL COMPENSATION ANALYST 500 [place], [place] 928035 Nurse Practitioner Dermatology 09/21/22 Brea Quinn APRN GLOBAL COMPENSATION ANALYST 6401 [facility] [place] 744932 Assigned Surgical Provider 10/09/22 [place] [address] [place] [address] Assigned Musculoskeletal Provider 10/09/22 Livan Sharif MD [address], [facility] [address] [place] [address] Assigned Heart and Vascular Provider 11/06/22 11/12/22 Catherine Cm MD [address] [place] 775425 Assigned Heart and Vascular Provider 11/13/22 05/27/23 Sydnie Martinez RN Personal Advocate & Liaison (PAL) Family Medicine 03/28/23 07/31/23 Alfonso Renteria MD 5775 [facility] 200 [place], [place] 829276 Assigned Neuroscience Provider 04/02/23 Cheng Todd PA-C [address] [place] [address] [phone] Assigned PCP 04/30/23 07/15/23 Radha Lomeli, [place] GLOBAL COMPENSATION ANALYST [address] [place] 702625 Assigned Heart and Vascular Provider 05/28/23 Jelena David OD [address] [facility] [place] [address] Ophthalmology 06/15/23 Pao Joseph, VJ Personal Advocate & Liaison (PAL) Nurse 08/01/23 11/07/23 Esha Grimm PA-C [address] [place] [phone] Assigned PCP 07/16/23 Valery Veronica PA-C [address] [place] [address] 402025 Physician Hydro Station Operator Dermatology 09/19/23 Rey Tay MD [address] [place] [address] 111495 MD Gastroenterology 09/20/23 Rocky Zepeda DO [address] [place] [address] 191745 Physician Gastroenterology 09/20/23 Philip Dumont MD [address] [place] [address] 502585 Physician Ophthalmology 09/22/23 Meredith Carrera PA-C [address] [place] [address] 726935 Assigned Gastroenterology Provider 11/01/23 Neil Kent MD [address] [place] [address] Dermatology 11/02/23 [place] [address] [place] [address] Neurological Surgery 12/26/23 Audrey Waite PA-C 500 [place] [address] Physician Hydro Station Operator Dermatology 02/28/24 documented as of this encounter
--- OUTSIDE RECORDS SUMMARY | 2024-03-23 16:01 | XMS_ITS | Encounter Summary ---
Author Organization [place] Address [address] [place] [address] Care Team Providers Care Proofer Name Role Phone Lita Oseguera Unavailable Unavailable Marija Edgar APRN EDITOR & CO FOUNDER Primary Care Provider + Marija Edgar APRN EDITOR & CO FOUNDER Unavailable + [phone] Keisha Dotson MD Unavailable [phone] Diana Desir [facility] Unavailable [phone] Rain Galaviz PA-C Unavailable [phone] Tavia Wyatt MD Unavailable Unavailable Erica Farrell APRN EDITOR & CO FOUNDER Unavailable Rich Barrett MD Unavailable [phone] Neil Kent MD Unavailable Diana Desir [facility] Unavailable [phone] Livan Sharif MD Unavailable Catherine Cm MD Unavailable + Valery Veronica PA-C Unavailable [phone] Brea Quinn APRN EDITOR & CO FOUNDER Unavailable Brea Quinn DRY CANS BACK TENDER EDITOR & CO FOUNDER Unavailable [phone] Jose Francisco Johnson MD Unavailable Catherine Cm MD Unavailable + Sydnie Martinez RN Unavailable Unavailable Alfonso Renteria MD Unavailable [phone] Esha Grimm PA-C Primary Care Provider Cheng Todd PA-C Unavailable Radha Lomeli APRN EDITOR & CO FOUNDER Unavailable Jelena David OD Unavailable Pao Joseph RN Unavailable Unavailable Esha Grimm PA-C Unavailable [phone] Valery Veronica PA-C Unavailable [phone] Rey Tay MD Unavailable Rocky Zepeda DO Unavailable Philip Dumont MD Unavailable Meredith Carrera PA-C Unavailable [phone] Neil Kent MD Unavailable Jua nPablo Emmanuel MD Unavailable Audrey Waite PA-C Unavailable [phone] Encounter Details Date Type Department Care Team (Late st Contact Info) Description 01/28/2023 MyC Medical Advice [facility] [address] [place] [address] Margaret Rendon, RN Social History Tobacco Use [...] How often do you attend mandaen or latter-day serv ices? Never 09/22/2021 Do [...] Answer Date Recorded PHQ-2 Score 1 10/11/2022 [facility] [place] of Occupat ional Health - Occupational Stress [...] in a snf (including now)? No 09/22/2021 [place] Depression Scale Answer Date Recorded [place] Depression Score 5 01/14/2021 Last EPDS Self [...] [facility] Spine and Neurosurgery [address] [facility] [address] [place] [phone] Ebony Cid, DRY CANS BACK TENDER [facility] 500 [place] [address] 03/27/2024 11:00 AM CDT Office Visit [facility] [address] [facility] [address] [place] [phone] Jelena David, OD 3305 [facility] [place] [address] 03/29/2024 3:30 PM CDT Therapy Visit [facility] 70395 [facility] 160 [place] [phone] Ingris Thompson, PT [facility] 516 [facility] 106 [place] [address] 04/05/2024 2:10 PM CDT Therapy Visit [facility] [address] [place] [address] 160 [place] [phone] Ingris Thompson, PT [facility] 516 [facility] 106 [place] [address] 04/19/2024 2:45 PM CDT Office Visit [facility] 830 [place] [address] Audrey Waite PA-C 420 [facility] [address], [facility] 603 [place] [address] 05/08/2024 1:30 PM CDT Office Visit [facility] [address] [place] [phone] Lauren Claudio PA-C [address] [place], [place] [phone] Esha Grimm PA-C [address] [place] [phone] 06/21/2024 2:00 PM FRONT OFFICE REPRESENTATIVE Office Visit [facility] Neurology Clinics [facility] [address] [facility], [address] [place] [address] [place] [address] [place] [address] Johnny Penn MD 6545 [place] [address] documented as of this encounter Visit Diagnoses Not on filedocumented in this encounter Additional Health Concerns Infection Onset Date Last Indicated Resolved Time Rule Out COVID-19 03/07/2023 03/07/2023 03/07/2023 1:20 PM CDT Rule Out COVID-19 12/26/2023 12/26/2023 12/26/2023 9:50 AM CDT Assessment Noted Time PHQ-9 Depression Total Score: 5 10/11/19 8:58 AM CDT documented as of this encounter Care Teams Proofer Relationship Specialty Start Date End Date Marija Edgar APRN CNP PCP - General Nurse Practitioner 04/30/20 04/14/23 Esha Grimm PA-C [address] [place] [phone] PCP - General Family Medicine 05/04/23 Lita Oseguera Personal Advocate & Liaison (PAL) 8/20/20 9/17/23 Marija Edgar APRN EDITOR & CO FOUNDER Assigned PCP 06/08/20 04/29/23 Keisha Dotson MD 909 [place], [place] 088955 Assigned Neuroscience Provider 06/04/20 04/01/23 Diana Desir, [facility] [address] [place], [place] 432436 Pharmacist Pharmacist 04/17/21 Rain Galaviz PA-C [address] [place] [address] [address] [place] [address] Physician Stoner Out Dermatology 04/28/21 Tavia Wyatt MD [address] [place] [address] [address] [place] [address] Dermatology 07/14/21 Erica Farrell APRN EDITOR & CO FOUNDER [address] [place], [place] 695[address] Nurse Practitioner Cardiovascular Disease 09/09/21 Rich Barrett MD [address] 802545 Physician Ophthalmology 01/21/22 Neil Kent MD [address] [place] [address] Dermatology 02/24/22 Diana Desir, [facility] 3033 [place] [address] Assigned MTM Pharmacist 04/07/22 Livan Sharif MD [address] [facility] [address] [place] [address] Cardiovascular Disease 05/14/22 Catherine Cm MD [address] [place] [address] [place] [address] Cardiovascular Disease 07/21/22 Valery Veronica, PA-C [address] [place] [address] Physician Stoner Out Dermatology 07/21/22 Brea Quinn APRN EDITOR & CO FOUNDER [address] [place] [address] Nurse Practitioner Dermatology 09/21/22 Brea Quinn APRN EDITOR & CO FOUNDER [address] [place] [address] Assigned Surgical Provider 10/09/22 [place] [address] [address] Assigned Musculoskeletal Provider 10/09/22 Catherine Cm MD [address] [facility] [place] [address] Assigned Heart and Vascular Provider 11/13/22 05/27/23 Sydnie Martinez RN Personal Advocate & Liaison (PAL) Family Medicine 9/18/23 1/21/24 Alfonso Renteria MD 5775 [facility] [address] 200 [place] [address] Assigned Neuroscience Provider 04/02/23 Cheng Todd PA-C [address] [place] [address] [phone] Assigned PCP 04/30/23 07/15/23 Radha Lomeli, ARLENE EDITOR & CO FOUNDER [address] [place] 0195800 [place], [place] 718605 Assigned Heart and Vascular Provider 05/28/23 Jelena David OD 3305 [facility] [address] [place] [phone] Ophthalmology 06/15/23 Pao Joseph, VJ Personal Advocate & Liaison (PAL) Nurse 08/01/23 11/07/23 Esha Grimm PA-C [address] [place] [address] Assigned PCP 07/16/23 Valery Veronica PA-C [address] [place] [address] 866535 Physician Stoner Out Dermatology 09/19/23 Rey Tay MD [address] [place] [address] 970675 Gastroenterology 09/20/23 Rocky Zepeda DO [address] [place] [address] [phone] Physician Gastroenterology 09/20/23 Philip Dumont MD 516 [place], [place] 538085 Physician Ophthalmology 09/22/23 Meredith Carrera PA-C [address] [place] [address] 438955 Assigned Gastroenterology Provider 11/01/23 Neil Kent MD [address] 868150 Dermatology 11/02/23 [place] [address] RAZO [address] [place] [address] [phone] Neurological Surgery 12/26/23 Audrey Waite PA-C [address] [place] [address] 456005 Physician Stoner Out Dermatology 02/28/24 documented as of this encounter
--- OUTSIDE RECORDS SUMMARY | 2024-03-23 16:01 | XMS_ITS | Encounter Summary ---
Author Organization [facility] [facility] Address [address] [place] [address] Care Team Providers Care Sheet Metal Duct Installer Name Role Phone Lita Oseguera Unavailable Unavailable Marija Edgar APRN BUSINESS MANAGEMENT INTERN Primary Care Provider + Marija Edgar APRN BUSINESS MANAGEMENT INTERN Unavailable + [phone] Keisha Dotson MD Unavailable [phone] Diana Desir [facility] Unavailable [phone] Rain Galaviz PA-C Unavailable [phone] Tavia Wyatt MD Unavailable Unavailable Erica Farrell APRN BUSINESS MANAGEMENT INTERN Unavailable Rich Barrett MD Unavailable [phone] Neil Kent MD Unavailable Diana Desir [facility] Unavailable [phone] Livan Sharif MD Unavailable Catherine Cm MD Unavailable + Valery Veronica PA-C Unavailable [phone] Brea Quinn APRN BUSINESS MANAGEMENT INTERN Unavailable Brea Quinn SUPPLY AIDE BUSINESS MANAGEMENT INTERN Unavailable [phone] Jose Francisco Johnson MD Unavailable Livan Sharif MD Unavailable Catherine Cm MD Unavailable + Sydnie Martinez RN Unavailable Unavailable Alfonso Renteria MD Unavailable [phone] Esha Grimm PA-C Primary Care Provider Cheng Todd PA-C Unavailable Armani Radha Stovall APRN BUSINESS MANAGEMENT INTERN Unavailable Frankie Jelena Garcia OD Unavailable [phone] Pao Joseph RN Unavailable Unavailable Esha Grimm PA-C Unavailable [phone] Valery Veronica PA-C Unavailable Rey Tay MD Unavailable Rocky Zepeda DO Unavailable Philip Dumont MD Unavailable [phone] Meredith Carrera PA-C Unavailable [phone] Neil Kent MD Unavailable Juan Pablo Emmanuel MD Unavailable [phone] Audrey Waite PA-C Unavailable Encounter Details Date Type Department Care Team (Late st Contact Info) Description 11/10/2022 MyC Medical Advice [facility] [address] [place] [phone] Lauren Claudio PA-C [address] [place] [address] Social History Tobacco Use Types [...] How often do you attend holiness or advent serv ices? Never 09/22/2021 Do [...] Answer Date Recorded PHQ-2 Score 1 10/11/2022 [facility] of Occupat ional [...] in a longterm (including now)? No 09/22/2021 [place] Depression Scale Answer Date Recorded [place] Depression Score 5 01/14/2021 Last EPDS Self [...] [facility] Spine [facility] Neurosurgery 1747 [facility] [address] [place] [address] Ebony Cid, SUPPLY AIDE BUSINESS MANAGEMENT INTERN 500 [place] [address] 03/27/2024 11:00 AM CDT Office Visit [facility] 3305 [facility] [address] [place] [phone] Jelena David, 3305 [facility] [place] [address] 03/29/2024 3:30 PM CDT Therapy Visit [facility] 37053 [facility] 160 [place] [address] Ingris Thompson, PT [facility] [address] [place] [address] 378425 04/05/2024 2:10 PM CDT Therapy Visit [facility] 69476 [facility] 160 [place] [phone] Ingris Thompson, PT [facility] [address] [place] [address] 106 [place] [address] 04/19/2024 2:45 PM CDT Office Visit [facility] 830 [place] [address] Audrey Waite PA-C 420 [facility] [address], [facility] 603 [place] [address] 05/08/2024 1:30 PM CDT Office Visit [facility] [address] [place] [phone] Lauren Claudio PA-C [address] [place], [place] [phone] Esha Grimm PA-C [address] [place] [address] 06/21/2024 2:00 PM CONSTRUCTION PIT WORKER Office [facility] Neurology [facility] [address] [place] [address], [address] [place] [address] [place] [address] [place] [address] Johnny Penn MD 6545 [place], [place] [phone] documented as of this encounter Visit Diagnoses [...] of this encounter Care Teams Sheet Metal Duct Installer Relationship Specialty Start Date End Date Marija Edgar APRN CNP PCP - General Nurse Practitioner 04/30/20 04/14/23 Esha Grimm PA-C 7[address]99 [facility] [address] PCP - General Family Medicine 05/04/23 Lita Oseguera Personal Advocate & Liaison (PAL) 02/28/20 03/27/23 Marija Edgar APRN BUSINESS MANAGEMENT INTERN Assigned PCP 06/08/20 04/29/23 Keisha Dotson MD 909 [place], [place] 990645 Assigned Neuroscience Provider 06/04/20 04/01/23 Diana Desir, [facility] [address] [place], [place] 8[address] Pharmacist Pharmacist 04/17/21 Rain Galaviz PA-C [address] [place] [address] [address] [facility] [place] [place] [address] Physician Stonemason Helper Dermatology 04/28/21 Tavia Wyatt MD [address] [place] [address] [address] [facility] [place] [address] Dermatology 07/14/21 Erica Farrell APRN BUSINESS MANAGEMENT INTERN [address] [place], [place] 493025 Nurse Practitioner Cardiovascular Disease 09/09/21 Rich Barrett MD [address] 304895 Physician Ophthalmology 01/21/22 Neil Kent MD 500 [place] [address] Dermatology 02/24/22 Diana Desir, [facility] 3033 [place] [address] Assigned MTM Pharmacist 04/07/22 Livan Sharif MD [address], [address] [place], [place] 765[address] Cardiovascular Disease 05/14/22 Catherine Cm MD [address] [place], [place] 661045 Cardiovascular Disease 07/21/22 Valery Veronica, PA-C 909 [place] [address] Physician Stonemason Helper Dermatology 07/21/22 Brea Quinn APRN BUSINESS MANAGEMENT INTERN 500 [place] [address] Nurse Practitioner Dermatology 09/21/22 Brea Quinn APRN BUSINESS MANAGEMENT INTERN 6401 [place] [address] Assigned Surgical Provider 10/09/22 [place] [address] RA[address] [place] [address] Assigned Musculoskeletal Provider 10/09/22 Livan Sharif MD [address], [facility] [address] [place] [address] Assigned Heart and Vascular Provider 11/06/22 11/12/22 Catherine Cm MD [address] [place] [address] Assigned Heart and Vascular Provider 11/13/22 05/27/23 Sydnie Martinez RN Personal Advocate & Liaison (PAL) Family Medicine 03/28/23 07/31/23 Alfonso Renteria MD 5775 [facility] 200 [place] [address] Assigned Neuroscience Provider 04/02/23 Cheng Todd PA-C [address] [place] [address] [phone] Assigned PCP 04/30/23 07/15/23 Radha Lomeli APRN BUSINESS MANAGEMENT INTERN [address] [place] [address] Assigned Heart and Vascular Provider 05/28/23 Jelena David OD [facility]5 [facility] [place] [address] Ophthalmology 06/15/23 Pao Joseph, VJ Personal Advocate & Liaison (PAL) Nurse 08/01/23 11/07/23 Esha Grimm PA-C [address] [place] [address] Assigned PCP 07/16/23 Valery Veronica PA-C 9 [place] [address] Physician Stonemason Helper Dermatology 09/19/23 Rey Tay MD [address] [place] [address] MD Gastroenterology 09/20/23 Rocky Zepeda DO 500 [place] [address] Physician Gastroenterology 09/20/23 Philip Dumont MD [address] [place] [address] Physician Ophthalmology 09/22/23 Meredith Carrera PA-C [address] [place] [address] Assigned Gastroenterology Provider 11/01/23 Neil Kent MD [address] [address] Dermatology 11/02/23 [place] [address] [address] [facility] [place], [place] 0[address] Neurological Surgery 12/26/23 Audrey Waite PA-C [address] [place] [address] Physician Stonemason Helper Dermatology 02/28/24 documented as of this encounter
--- OUTSIDE RECORDS SUMMARY | 2024-03-23 16:01 | XMS_ITS | Encounter Summary ---
Author Organization [place] Address [address] [place] [address] Care Team Providers Care Seismograph Operator Name Role Phone Marija Edgar APRN SPECIALTY FOODS COOK Primary Care Provider + Marija Edgar APRN SPECIALTY FOODS COOK Unavailable [phone] Keisha Dotson MD Unavailable [phone] Diana Desir [facility] Unavailable Rain Galaviz PA-C Unavailable [phone] Tavia Wyatt MD Unavailable Unavailable Erica Farrell APRN SPECIALTY FOODS COOK Unavailable Rich Barrett MD Unavailable [phone] Neil Kent MD Unavailable Diana Desir [facility] Unavailable [phone] Livan Sharif MD Unavailable Catherine Cm MD Unavailable + Valery Veronica PA-C Unavailable [phone] Brea Quinn APRN SPECIALTY FOODS COOK Unavailable [phone] Brea Quinn PROCUREMENT ACCOUNTANT SPECIALTY FOODS COOK Unavailable Jose Francisco Johnson MD Unavailable Catherine Cm MD Unavailable + Sydnie Martinez RN Unavailable Unavailable Alfonso Renteria MD Unavailable [phone] Esha Grimm PA-C Primary Care Provider Cheng Todd PA-C Unavailable Armani Radha Sia [facility] SPECIALTY FOODS COOK Unavailable Jelena David OD Unavailable Pao Joseph RN Unavailable Unavailable Esha Grimm PA-C Unavailable [phone] Valery Veronica PA-C Unavailable Rey Tay MD Unavailable Rocky Zepeda DO Unavailable Philip Dumont MD Unavailable [phone] Meredith Carrera PA-C Unavailable [phone] Neil Kent MD Unavailable Juan Pablo Emmanuel MD Unavailable Audrey Waite PA-C Unavailable [phone] Encounter Details Date Type Department Care Team (Late st Contact Info) Description 03/29/2023 MyC Medical Advice [address] [address] Diana Desir, [facility] 3033 [place], [place] 080806 Social History Tobacco Use Types Packs/Day Years [...] 03/10/2023 How often do you attend [facility] or latter-day services? 1 to 4 [...] Answer Date Recorded PHQ-2 Score 0 03/10/2023 [facility] [place] of Occupat ional Health - Occupational Stress [...] slept in a assisted (including now)? No 03/10/2023 [place] Depression Scale Answer Date Recorded [place] Depression Score 5 01/14/2021 Last EPDS Self [...] Visit [facility] Spine and Neurosurgery 1747 [facility] [address] [place] [phone] Ebony Cid, PROCUREMENT ACCOUNTANT SPECIALTY FOODS COOK 500 [place] [address] 03/27/2024 11:00 AM CDT [facility] 3305 [facility] [address] [place] [address] Jelena David, 3305 [facility] [place] [address] 03/29/2024 3:30 PM CDT Therapy Visit [facility] 71299 [facility] 160 [place] [phone] Ingris Thompson, PT [facility] [address] [place] [address] 106 [place] [address] 04/05/2024 2:10 PM CDT Therapy Visit [facility] 29523 [facility] 160 [place] [phone] Ingris Thompson, PT [facility] [address] [place] [address] 106 [place] [address] 04/19/2024 2:45 PM CDT Office Visit [facility] 830 [place] [address] Audrey Waite PA-C 420 [facility] [address]385, [facility] 603 [place] [address] 05/08/2024 1:30 PM CDT Office Visit [facility] [address] [place] [phone] Lauren Claudio PA-C [address] [place] [address] Esha Grimm PA-C [address] [place] [address] 06/21/2024 2:00 PM LEATHER POLISHER Office [facility] [place] 6545 [facility], [address] [place] [address] [place] [address] [place] [address] Johnny Penn MD 6545 [place], [place] [phone] documented as of this encounter Visit Diagnoses Not on filedocumented in this encounter Additional Health Concerns Infection Onset Date Last Indicated Resolved Time Rule Out COVID-19 12/26/2023 12/26/2023 12/26/2023 9:50 AM CDT Assessment Noted Time PHQ-9 Depression Total Score: 5 03/10/20 23 6:49 AM CDT documented as of this encounter Care Teams Seismograph Operator Relationship Specialty Start Date End Date Marija Edgar APRN SPECIALTY FOODS COOK PCP - General Nurse Practitioner 04/30/20 04/14/23 Esha Grimm PA-C [address] [place] [address] PCP - General Family Medicine 05/04/23 Marija Edgar APRN SPECIALTY FOODS COOK Assigned PCP 06/08/20 04/29/23 Keisha Dotson MD 909 [place] [address] Assigned Neuroscience Provider 06/04/20 04/01/23 Diana Desir, [facility] [address] [place] [address] Pharmacist Pharmacist 04/17/21 Rain Galaviz PA-C [address] [place] [address] [address] [facility] [facility] [place] [address] Physician Tumble Tailstock Turret Lathe Operator Dermatology 04/28/21 Tavia Wyatt MD [address] [place] [address] DR [address] [facility] [place] [place] [address] Dermatology 07/14/21 Erica Farrell APRN SPECIALTY FOODS COOK [address] [place] [address] Nurse Practitioner Cardiovascular Disease 09/09/21 Rich Barrett MD [address] [place] [address] Physician Ophthalmology 01/21/22 Neil Kent MD [address] [place] [address] 435855 Dermatology 02/24/22 Diana Desir, [facility] [address] [place] [address] Assigned MTM Pharmacist 04/07/22 Livan Sharif MD [address] [place] [address] [place] [address] Cardiovascular Disease 05/14/22 Catherine Cm MD [address] [place] [address] [place], [place] 827745 Cardiovascular Disease 07/21/22 Valery Veronica, PAUcheC [address] [place] [address] 487925 Physician Tumble Tailstock Turret Lathe Operator Dermatology 07/21/22 Brea Quinn APRN SPECIALTY FOODS COOK [address] [place] [address] 226755 Nurse Practitioner Dermatology 09/21/22 Brea Quinn APRN SPECIALTY FOODS COOK 6401 [place], [place] 259062 Assigned Surgical Provider 10/09/22 [place] [address] RA[address] [place] [address] Assigned Musculoskeletal Provider 10/09/22 Catherine Cm MD [address] [facility] [place] [address] Assigned Heart and Vascular Provider 11/13/22 05/27/23 Sydnie Martinez RN Personal Advocate & Liaison (PAL) Family Medicine 03/28/23 07/31/23 Alfonso Renteria MD 5775 [facility] [address] 200 [place] [address] Assigned Neuroscience Provider 04/02/23 hCeng Todd PA-C [address] [place] [address] Assigned PCP 04/30/23 07/15/23 Radha Lomeli APRN SPECIALTY FOODS COOK 6405 [facility] [address] [place] [address] Assigned Heart and Vascular Provider 05/28/23 Jelena David OD 3305 [facility] [place] [address] Ophthalmology 06/15/23 Pao Joseph, VJ Personal Advocate & Liaison (PAL) Nurse 08/01/23 11/07/23 Esha Grimm PA-C [address] [place] [address] Assigned PCP 07/16/23 Valery Veronica PA-C [address] [place] [address] Physician Tumble Tailstock Turret Lathe Operator Dermatology 09/19/23 Rey Tay MD [address] [place] [address] 383925 Gastroenterology 09/20/23 Rocky Zepeda DO [address] [place] [address] Physician Gastroenterology 09/20/23 Philip Dumont MD 516 [place] [address] Physician Ophthalmology 09/22/23 Meredith Carrera PA-C [address] [place] [address] Assigned Gastroenterology Provider 11/01/23 Neil Kent MD [address] [place] [address] Dermatology 11/02/23 [place] [address] 147967 Neurological Surgery 12/26/23 Audrey Waite PA-C 500 [place] [address] Physician Tumble Tailstock Turret Lathe Operator Dermatology 02/28/24 documented as of this encounter
--- OUTSIDE RECORDS SUMMARY | 2024-03-23 16:02 | XMS_ITS | Encounter Summary ---
Author Organization [facility] Address [address] [place] [address] Care Team Providers Care Shirt Hemmer Name Role Phone Lita Oseguera Unavailable Unavailable Marija Edgar APRN CORDUROY CUTTER OPERATOR Primary Care Provider + Marija Edgar APRN CORDUROY CUTTER OPERATOR Unavailable [phone] Keisha Dotson MD Unavailable [phone] Diana Desir [facility] Unavailable [phone] Rain Galaviz PA-C Unavailable Tavia Wyatt MD Unavailable Unavailable Erica Farrell APRN CORDUROY CUTTER OPERATOR Unavailable Rich Barrett MD Unavailable [phone] Neil Kent MD Unavailable Diana Desir [facility] Unavailable [phone] Livan Sharif MD Unavailable Catherine Cm MD Unavailable + Valery Veronica PA-C Unavailable [phone] Catherine Cm MD Unavailable + Brea Quinn APRN CORDUROY CUTTER OPERATOR Unavailable [phone] [place], Brea P ORDER DESK CLERK CORDUROY CUTTER OPERATOR Unavailable Jose Francisco Johnson MD Unavailable Livan Sharif MD Unavailable Catherine Cm MD Unavailable + Sydnie Martinez RN Unavailable Unavailable Alfonso Renteria MD Unavailable [phone] Esha Grimm PA-C Primary Care Provider Cheng Todd PA-C Unavailable Radha Lomeli ORDER DESK CLERK CORDUROY CUTTER OPERATOR Unavailable Jelena David OD Unavailable Pao Joseph RN Unavailable Unavailable Esha Grimm PA-C Unavailable [phone] Valery Veronica PA-C Unavailable Rey Tay [...] (Late st Contact Info) Description 10/12/2022 Telephone [facility] [address] [place] [address] Lauren Claudio PA-C [address] [place] [address] Prior Auth - Medication (Lidocaine [...] How often do you attend taoist or hinduism serv ices? Never 09/22/2021 Do [...] Date Recorded PHQ-2 Score 1 10/11/2022 [facility] - Occupational Stress Questionnaire Answer Date [...] in a fci (including now)? No 09/22/2021 [place] Depression Scale Answer Date Recorded [place] Depression Score 5 01/14/2021 Last EPDS Self [...] Visit [facility] Spine and Neurosurgery [address] [place] [address] Ebony Cid, [facility] 500 [place] [address] 03/27/2024 11:00 AM CDT Office Visit [facility] Monserrat [address] [facility] [address] [place] [phone] Jelena David, [place] [address] [facility] [address] [place] [address] 03/29/2024 3:30 PM CDT Therapy Visit [facility] [address] [place] [address] 160 [place] [phone] Ingris Thompson, PT [facility] [address] [place] [address] 106 [place], [place] 25[address] 04/05/2024 2:10 PM CDT Therapy Visit [facility] [address] [place] [address] 160 [place] [phone] Ingris Thompson, PT [facility] [address] [place] [address] 106 [place] [address] 04/19/2024 2:45 PM CDT Office Visit [address] [phone] Audrey Waite PA-C [address] [facility] [address], [facility] 603 [place] [address] 05/08/2024 1:30 PM CDT Office Visit [facility] [id number] [place] [phone] Lauren Claudio PA-C [address] [place], [place] [phone] Esha Grimm PA-C [address] [place] [address] 06/21/2024 2:00 PM NURSERY NURSE Office Visit [facility] Neurology [facility]ics - [place] [address] [facility], [address] [place] [address] [place] [address] [place], [place] 312587 Johnny Penn MD [address] [facility] [place] [phone] documented as of this encounter Visit Diagnoses [...] documented as of this encounter Care Teams Shirt Hemmer Relationship Specialty Start Date End Date Marija Edgar APRN CORDUROY CUTTER OPERATOR PCP - General Nurse Practitioner 04/30/20 04/14/23 Esha Grimm PA-C [address] [place] [address] PCP - General Family Medicine 05/04/23 Lita Oseguera Personal Advocate & Liaison (PAL) 02/28/20 03/27/23 Marija Edgar APRN CORDUROY CUTTER OPERATOR Assigned PCP 06/08/20 04/29/23 Keisha Dotson MD [address] [place] [address] Assigned Neuroscience Provider 06/04/20 04/01/23 Diana Desir, [facility] [address] [place] [address] Pharmacist Pharmacist 04/17/21 Rain Galaviz PA-C [address] [place] [address] [address] [place] [address] Physician Granite Cutter Dermatology 04/28/21 Tavia Wyatt MD [address] [place] [address] [place] [address] Dermatology 07/14/21 Erica Farrell APRN CORDUROY CUTTER OPERATOR [address] [place] 535425 Nurse Practitioner Cardiovascular Disease 09/09/21 Rich Barrett MD [address] [address] Physician Ophthalmology 01/21/22 Neil Kent MD [address] [place] [address] Dermatology 02/24/22 Diana Desir, [facility] [address] [place] [address] Assigned MTM Pharmacist 04/07/22 Livan Sharif MD [address] [place] [address] Cardiovascular Disease 05/14/22 Catherine Cm MD [address] [facility] [address] [place] [address] Cardiovascular Disease 07/21/22 Valery Veronica, PA-C [address] [place] [address] Physician Granite Cutter Dermatology 07/21/22 Catherine Cm MD [address] [facility] [address] [place] [address] Assigned Heart and Vascular Provider 07/24/22 11/05/22 Brea Quinn APRN CORDUROY CUTTER OPERATOR [address] [place] [address] Nurse Practitioner Dermatology 09/21/22 Brea Quinn APRN CORDUROY CUTTER OPERATOR [address] [place] [address] Assigned Surgical Provider 10/09/22 [place] [address] [facility] [address] [place] [address] Assigned Musculoskeletal Provider 10/09/22 Livan Sharif MD [address] [place] [address] Assigned Heart and Vascular Provider 11/06/22 11/12/22 Catherine Cm MD [address] [place] [address] Assigned Heart and Vascular Provider 11/13/22 05/27/23 Sydnie Martinez, RN Personal Advocate & Liaison (PAL) Family Medicine 03/28/23 07/31/23 Alfonso Renteria MD [address] [facility] [address] 200 [place] [address] Assigned Neuroscience Provider 04/02/23 Cheng Todd PA-C [address] [place] [address] [phone] Assigned PCP 04/30/23 07/15/23 Radha Lomeli APRN CORDUROY CUTTER OPERATOR [address] [place] [address] Assigned Heart and Vascular Provider 05/28/23 Jelena David OD [address] [facility] [place] [place] [address] Ophthalmology 06/15/23 Pao Joseph RN Personal Advocate & Liaison (PAL) Nurse 08/01/23 11/07/23 Esha Grimm PA-C [address] [place] [address] Assigned PCP 07/16/23 Valery Veronica PA-C [address] [place] [address] 176365 Physician Granite Cutter Dermatology 09/19/23 Rey Tay MD [address] [place] [address] MD Gastroenterology 09/20/23 Rocky Zepeda DO 500 [place] [address] Physician Gastroenterology 09/20/23 Philip Dumont MD [address] [place] [address] Physician Ophthalmology 09/22/23 Meredith Carrera PA-C [address] [place] [address] [phone] Assigned Gastroenterology Provider 11/01/23 Neil Kent MD [address] 266490 Dermatology 11/02/23 [place] [address] 938107 Neurological Surgery 12/26/23 Audrey Waite PA-C 500 [place] [address] Physician Granite Cutter Dermatology 02/28/24 documented as of this encounter
--- OUTSIDE RECORDS SUMMARY | 2024-03-23 16:02 | XMS_ITS | Encounter Summary ---
Author Organization [facility] Address [address] [place] [address] Care Team Providers Care Clinical Social Worker Name Role Phone Lita Oseguera Unavailable Unavailable Marija Edgar APRN HEALTH RECORD TECHNICIAN Primary Care Provider + Marija Edgar APRN HEALTH RECORD TECHNICIAN Unavailable [phone] Keisha Dotson MD Unavailable [phone] Diana Desir [facility] Unavailable [phone] Rain Galaviz PA-C Unavailable Tavia Wyatt MD Unavailable Unavailable Erica Farrell APRN HEALTH RECORD TECHNICIAN Unavailable Rich Barrett MD Unavailable [phone] Neil Kent MD Unavailable Diana Desir [facility] Unavailable Jelena David OD Unavailable Livan Sharif MD Unavailable Catherine Cm MD Unavailable + Valery Veronica PA-C Unavailable [phone] Catherine Cm MD Unavailable + Johnny Murillo MD Unavailable [phone] Brea Quinn MANAGER INTERNAL HEALTH RECORD TECHNICIAN Unavailable Brea Quinn MANAGER INTERNAL HEALTH RECORD TECHNICIAN Unavailable [phone] Jose Francisco Johnson MD Unavailable Livan Sharif MD Unavailable Catherine Cm MD Unavailable + Sydnie Martinez RN Unavailable Unavailable Alfonso Renteria MD Unavailable [phone] Esha Grimm PA-C Primary Care Provider Cheng Todd PA-C Unavailable Radha Lomeli MANAGER INTERNAL HEALTH RECORD TECHNICIAN Unavailable Jelena David OD Unavailable [phone] Pao Joseph RN Unavailable Unavailable Esha Grimm PA-C Unavailable [phone] Valery Veronica PA-C Unavailable Rey Tay [...] Contact Info) Description 09/21/2022 [facility]phone [facility] [address] [facility], [address] [place] [address] Keisha Dotson MD 430 [place] [address] Call Back (Change of provider request) Social [...] How often do you attend religion or jehovah's witness serv ices? Never 09/22/2021 [...] Answer Date Recorded PHQ-2 Score 2 08/27/2022 [facility] - Occupational Stress Questionnaire [...] in a long-term (including now)? No 09/22/2021 [place] Depression Scale Answer Date Recorded [place] Depression Score 5 01/14/2021 Last EPDS Self [...] Aleyda Guan - 09/21/2022 10:47 AM CDT [facility] Phone Message May a detailed message be left on voicemail: yes Reason for Call: Other: Change of provider request, Pt would like to be seen with another provider. Please call Pt back at [phone] to scheduled or advise. Action Taken: Message routed to: [facility] Neurology Travel Screening: Not Applicable documented in this encounter Plan of Treatment Upcoming Encounters Date Type Department Care Team (Late st Contact Info) Description 03/26/2024 11:20 AM CDT Office Visit [facility] Spine and [facility]surgery [facility] [address] [place] [phone] Ebony Cid, MANAGER INTERNAL [facility] 500 [place] [address] 03/27/2024 11:00 AM CDT Office Visit [facility] [place] [address] [facility] [address] [place] [phone] Jelena David, SONJA [address] [facility] [place] [address] 03/29/2024 3:30 PM CDT Therapy Visit [facility] Rehabilitation Services [address] [place] [phone] Ingris Thompson, PT [facility] [address] [facility] 106 [place], [place] [address] 04/05/2024 2:10 PM CDT Therapy Visit [facility] [place] [address] [facility] [address] [place] [phone] Ingris Thompson, PT [facility] [address] [facility] 106 [place] [address] 04/19/2024 2:45 PM CDT Office Visit [address] [phone] Audrey Waite PA-C [address] [facility] [address], [facility] 603 [place], [place] [address] 05/08/2024 1:30 PM CDT Office Visit [facility] [address] [place] [address] Lauren Claudio PA-C [address] [place], [place] [phone] Esha Grimm PA-C [address] [place] [address] 06/21/2024 2:00 PM BANKING ASSISTANT Office Visit [facility] Neurology Clinics - [address], [address] [place] [address] [place] [address] [place] [address] Johnny Penn MD 7535 [place] [address] documented as of this encounter Visit Diagnoses Not on filedocumented in this encounter Additional Health Concerns Infection Onset Date Last Indicated Resolved Time Rule Out COVID-19 11/10/2022 11/10/2022 11/11/2022 12:17 PM CDT Rule Out COVID-19 03/07/2023 03/07/2023 03/07/2023 1:20 PM CDT Rule Out COVID-19 12/26/2023 12/26/2023 12/26/2023 9:50 AM CDT Assessment Noted Time PHQ-9 Depression Total Score: 5 08/27/19 1:14 PM BANKING ASSISTANT documented as of this encounter Care Teams Clinical Social Worker Relationship Specialty Start Date End Date Marija Edgar APRN HEALTH RECORD TECHNICIAN PCP - General Nurse Practitioner 04/30/20 04/14/23 Esha Grimm PA-C [address] [place] [phone] PCP - General Family Medicine 05/04/23 Lita Oseguera Personal Advocate & Liaison (PAL) 02/28/20 03/27/23 Marija Edgar APRN HEALTH RECORD TECHNICIAN Assigned PCP 06/08/20 04/29/23 Keisha Dotson MD [address]09 [place], [place] 6[address] Assigned Neuroscience Provider 06/04/20 04/01/23 Diana Desir [facility] 3033 [place] [address] Pharmacist Pharmacist 04/17/21 Rain Galaviz PA-C [address] [place] [address] [address] [place] [address] Physician Vehicle Damage Appraiser Dermatology 04/28/21 Tavia Wyatt MD [address] [place] [address] [place] [address] Dermatology 07/14/21 Erica Farrell APRN HEALTH RECORD TECHNICIAN [address] [place] [address] Nurse Practitioner Cardiovascular Disease 09/09/21 Rich Barrett MD [address] [place] [address], [address] 245555 Physician Ophthalmology 01/21/22 Neil Kent MD 500 [place], [place] 038745 Dermatology 02/24/22 [facility] 3033 [place] [address] Assigned MTM Pharmacist 04/07/22 Jelena David OD [address] [facility] [place] [address] Assigned Surgical Provider 05/08/22 10/08/22 Livan Sharif MD [address] [place] [address] Cardiovascular Disease 05/14/22 Catherine Cm MD [address] [facility] [address] [place] [address] Cardiovascular Disease 07/21/22 Valery Veronica PA-C [address] [place] [address] Physician Vehicle Damage Appraiser Dermatology 07/21/22 Catherine Cm MD [address] [facility] [address] [place] [address] Assigned Heart and Vascular Provider 07/24/22 11/05/22 Johnny Murillo MD [address] [place] [address] Assigned Musculoskeletal Provider 08/14/22 10/08/22 Brea Quinn APRN HEALTH RECORD TECHNICIAN [address] [place] [address] 692955 Nurse Practitioner Dermatology 09/21/22 Brea Quinn APRN HEALTH RECORD TECHNICIAN [address] [place] [address] 040012 Assigned Surgical Provider 10/09/22 [place] [address] [place] [address] Assigned Musculoskeletal Provider 10/09/22 Livan Sharif MD [address] [facility] [address] [place] [address] Assigned Heart and Vascular Provider 11/06/22 11/12/22 Catherine Cm MD [address] [place] [address] Assigned Heart and Vascular Provider 11/13/22 05/27/23 Sydnie Martinez RN Personal Advocate & Liaison (PAL) Family Medicine 03/28/23 07/31/23 Alfonso Renteria MD [address] [facility] [address] 200 [place] [address] Assigned Neuroscience Provider 04/02/23 Cheng Todd PA-C [address] [place] [address] [id number] Assigned PCP 04/30/23 07/15/23 Radha Lomeli APRN HEALTH RECORD TECHNICIAN [address] [place] [address] Assigned Heart and Vascular Provider 05/28/23 Jelena David OD [address] [facility] [place] [address] Ophthalmology 06/15/23 Pao Joseph RN Personal Advocate & Liaison (PAL) Nurse 08/01/23 11/07/23 Esha Grimm PA-C [address] [place] [address] Assigned PCP 07/16/23 Valery Veronica PA-C [address] [place] [address] Physician Vehicle Damage Appraiser Dermatology 09/19/23 Rey Tay MD 909 [place] [address] MD Gastroenterology 09/20/23 Rocky Zepeda DO 500 [place] [address] Physician Gastroenterology 09/20/23 Philip Dumont MD [address] [place] [address] Physician Ophthalmology 09/22/23 Meredith Carrera PA-C [address] [place] [address] Assigned Gastroenterology Provider 11/01/23 Neil Kent MD [address] [place] [address] Dermatology 11/02/23 [place] [address] [address] Neurological Surgery 12/26/23 Audrey Waite PA-C [address] [place] [address] Physician Vehicle Damage Appraiser Dermatology 02/28/24 documented as of this encounter
--- OUTSIDE RECORDS SUMMARY | 2024-03-23 16:02 | XMS_ITS | Encounter Summary ---
Author Organization [place] Address [address] [place] [address] Care Team Providers Care Unix Manager Name Role Phone Lita Oseguera Unavailable Unavailable Marija Edgar APRN MANAGEMENT SUPERVISOR Primary Care Provider + Marija Edgar APRN MANAGEMENT SUPERVISOR Unavailable [phone] Keisha Dotson MD Unavailable Diana Desir [facility] Unavailable [phone] Rain Galaviz PA-C Unavailable [phone] Tavia Wyatt MD Unavailable Unavailable Erica Farrell APRN MANAGEMENT SUPERVISOR Unavailable Rich Barrett MD Unavailable [phone] Neil Kent MD Unavailable Roney Story DPM Unavailable [phone] Diana Desir [facility] Unavailable [phone] Jelena David OD Unavailable Livan Sharif MD Unavailable Livan Sharif MD Unavailable Catherine Cm MD Unavailable + Valery Veronica PA-C Unavailable Catherine Cm MD Unavailable + Johnny Murillo MD Unavailable [phone] Brea Quinn TEAM ASSISTANT MANAGEMENT SUPERVISOR Unavailable [phone] Brea Quinn TEAM ASSISTANT MANAGEMENT SUPERVISOR Unavailable [phone] Jose Francisco Johnson MD Unavailable Livan Sharif MD Unavailable Catherine Cm MD Unavailable + Sydnie [place] RN Unavailable Unavailable Alfonso Renteria MD Unavailable Esha Grimm PA-C Primary Care Provider Cheng Todd PA-C Unavailable Radha Lomeli TEAM ASSISTANT MANAGEMENT SUPERVISOR Unavailable Jelena David Radha OD Unavailable Pao Joseph RN Unavailable Unavailable Esha Grimm PA-C Unavailable [phone] Valery Veronica PA-C Unavailable [phone] Rey Tay MD Unavailable Rocky Zepeda DO Unavailable Philip Dumont MD Unavailable Meredith Carrera PA-C Unavailable Neil Kent MD Unavailable Juan Pablo Emmanuel MD Unavailable [phone] Audrey Waite PA-C Unavailable [phone] Encounter Details Date Type Department Care Team (Late st Contact Info) Description 07/20/2022 [facility] Heart [address] [phone] Livan Sharif MD [address] [place] [address] Social History Tobacco Use Types Packs/Day Years [...] How often do you attend hoahaoism or yazidism serv ices? Never 09/22/2021 Do [...] points; Administer PHQ-9 if positive 1 05/13/2022 [facility] [...] in a mcfp (including now)? No 09/22/2021 Buchanan Depression Scale Answer Date Recorded Buchanan Depression Score 5 01/14/2021 Last EPDS Self [...] Coronavirus/COVID-19? No / Unsure 07/23/2022 6:45 AM CAREER DEVELOPMENT COUNSELOR documented as of this encounter Plan of Treatment Upcoming Encounters Date Type Department Care Team (Late st Contact Info) Description 03/26/2024 11:20 AM CDT Office Visit [facility] Spine and Neurosurgery [address] [place] [address] [address] [place] [address] Ebony Cid, TEAM ASSISTANT [facility] [address] [place] [address] 03/27/2024 11:00 AM CDT Office Visit [facility] [address] [facility] [address] [place] [phone] Jelena David, [address] [facility] [place] [address] 03/29/2024 3:30 PM CDT Therapy Visit [address] 160 [place] [phone] Ingris Thomspon, PT [facility] [address] [place] [address] 04/05/2024 2:10 PM CDT Therapy Visit [address] [place] [phone] Ingris Thompson, PT [facility] [address] [place] [address] 04/19/2024 2:45 PM CDT Office Visit [address] [phone] Audrey Waite PA-C [address], [facility] 6[address] [place], [place] [address] 05/08/2024 1:30 PM CDT Office Visit [facility] [address] [place] [phone] Lauren Claudio PA-C [address] [place] [address] Esha Grimm PA-C [address] [place] [address] 06/21/2024 2:00 PM CAREER DEVELOPMENT COUNSELOR Office Visit [facility] Neurology Clinics - [address], [address] [place] [phone] [place] [address] [place], [place] [address] Johnny Penn MD 6545 [place], [place] 7180[address] documented as of this encounter Visit Diagnoses [...] documented as of this encounter Care Teams Unix Manager Relationship Specialty Start Date End Date Marija Edgar APRN MANAGEMENT SUPERVISOR PCP - General Nurse Practitioner 04/30/20 04/14/23 Esha Grimm PA-C [address] [place] [address] PCP - General Family Medicine 05/04/23 Lita Oseguera Personal Advocate & Liaison (PAL) 02/28/20 03/27/23 Marija Edgar APRN MANAGEMENT SUPERVISOR Assigned PCP 06/08/20 04/29/23 Keisha Dotson MD 9[address] [place], [place] 583075 Assigned Neuroscience Provider 06/04/20 04/01/23 Diana Desir, [facility] [address] [place] [address] Pharmacist Pharmacist 04/17/21 Rain Galaviz PA-C [address] [place] [address] [address] [place] [address] Physician Veterinary Medical Officer Dermatology 04/28/21 Tavia Wyatt MD [address] [place] [address] [address] [place] [address] Dermatology 07/14/21 Erica Farrell APRN MANAGEMENT SUPERVISOR [address] [place] [address] Nurse Practitioner Cardiovascular Disease 09/09/21 Rich Barrett MD 516 [facility] [address] [place], [place] [address] Physician Ophthalmology 01/21/22 Neil Kent MD [address] [place], [place] 626815 Dermatology 02/24/22 Roney Story DPM [address] [employer] [facility] [address] [place], [place] 7611[address] Assigned Musculoskeletal Provider 03/20/22 08/13/22 [facility] [address] [place], [place] 5405[address] Assigned MTM Pharmacist 04/07/22 Jelena David OD [address] [facility] [place] [address] Assigned Surgical Provider 05/08/22 10/08/22 Livan Sharif MD [address] [place] [address] Cardiovascular Disease 05/14/22 Livan Sharif MD [address] [place] [address] Assigned Heart and Vascular Provider 06/12/22 07/23/22 Catherine Cm MD [address] [place] [address] Cardiovascular Disease 07/21/22 Valery Veronica, PA-C [address] [place] [address] Physician Veterinary Medical Officer Dermatology 07/21/22 Catherine Cm MD [address] [facility] [address] [place] 678665 Assigned Heart and Vascular Provider 07/24/22 11/05/22 Johnny Murillo MD [address] [place] [address] 764774 Assigned Musculoskeletal Provider 08/14/22 10/08/22 Brea Quinn APRN MANAGEMENT SUPERVISOR [address] [place] [address] 776695 Nurse Practitioner Dermatology 09/21/22 Brea Quinn APRN MANAGEMENT SUPERVISOR [address] [place] [address] [place] [address] Assigned Surgical Provider 10/09/22 [place] [address] [place] [address] [phone] Assigned Musculoskeletal Provider 10/09/22 Livan Sharif MD [address] [place] [address] Assigned Heart and Vascular Provider 11/06/22 11/12/22 Catherine Cm MD [address] [place] [address] Assigned Heart and Vascular Provider 11/13/22 05/27/23 Sydnie [place] RN Personal Advocate & Liaison (PAL) Family Medicine 03/28/23 07/31/23 Alfonso Renteria MD [address] [facility] [address] [place] [address] Assigned Neuroscience Provider 04/02/23 Cheng Todd PA-C [address] [place] [address] [phone] Assigned PCP 04/30/23 07/15/23 Radha Lomeli APRN MANAGEMENT SUPERVISOR [address] [place] [address] Assigned Heart and Vascular Provider 05/28/23 Jelena David OD [address] [facility] [place] [address] Ophthalmology 06/15/23 Pao Joseph, VJ Personal Advocate & Liaison (PAL) Nurse 08/01/23 11/07/23 Esha Grimm PA-C [address] [place] [address] Assigned PCP 07/16/23 Valery Veronica PA-C 909 [place], [place] 354675 Physician Veterinary Medical Officer Dermatology 09/19/23 Rey Tay MD 909 [place] [address] Gastroenterology 09/20/23 Rocky Zepeda DO 500 [place] [address] Physician Gastroenterology 09/20/23 Philip Dumont MD 6 [place] [address] Physician Ophthalmology 09/22/23 Meredith Carrera PA-C 9 [place] [address] Assigned Gastroenterology Provider 11/01/23 Neil Kent MD [address] [address] Dermatology 11/02/23 [place] [address] [place] [address] [address] Neurological Surgery 12/26/23 Audrey Waite PA-C 500 [place] [address] Physician Veterinary Medical Officer Dermatology 02/28/24 documented as of this encounter
--- OUTSIDE RECORDS SUMMARY | 2024-03-23 16:02 | XMS_ITS | Encounter Summary ---
Author Organization [place] Address [address] [place] [address] Care Team Providers Care Dairy Husbandry Teacher Name Role Phone Lita Oseguera Unavailable Unavailable Marija Edgar APRN EMBEDDED FIRMWARE ENGINEER Primary Care Provider + Marija Edgar APRN EMBEDDED FIRMWARE ENGINEER Unavailable [phone] Keisha Dotson MD Unavailable [phone] Diana Desir [facility] Unavailable [phone] Rain Galaviz PA-C Unavailable [phone] Tavia Wyatt MD Unavailable Unavailable Erica Farrell APRN EMBEDDED FIRMWARE ENGINEER Unavailable Rich Barrett MD Unavailable [phone] Neil Kent MD Unavailable Roney Story DPM Unavailable [phone] Diana Desir [facility] Unavailable [phone] Jelena David OD Unavailable Livan Sharif MD Unavailable Livan Sharif MD Unavailable Catherine Cm MD Unavailable + Valery Veronica PA-C Unavailable Catherine Cm MD Unavailable + Johnny Murillo MD Unavailable [phone] Brea Quinn EDITOR MAP EMBEDDED FIRMWARE ENGINEER Unavailable [phone] Brea Quinn EDITOR MAP EMBEDDED FIRMWARE ENGINEER Unavailable [phone] Jose Francisco Johnson MD Unavailable Livan Sharif MD Unavailable Catherine Cm MD Unavailable + Sydnie [place] RN Unavailable Unavailable Alfonso Renteria MD Unavailable Esha Grimm PA-C Primary Care Provider Cheng Todd PA-C Unavailable Radha Lomeli EDITOR MAP EMBEDDED FIRMWARE ENGINEER Unavailable [phone] Jelena David Radha OD Unavailable [phone] Pao Joseph RN Unavailable Unavailable Esha Grimm PA-C Unavailable [phone] Valery Veronica PA-C Unavailable [phone] Rey Tay MD Unavailable Rocky Zepeda DO Unavailable Philip Dumont MD Unavailable [phone] Meredith Carrera PA-C Unavailable Neil Kent MD Unavailable Juan Pablo Emmanuel MD Unavailable [phone] Audrey Waite PA-C Unavailable [phone] Reason for Visit * Reason Onset Date Comments Appointment 06/14/2022 Stress test and monitor on the same day Encounter Details Date Type Department Care Team (Late st Contact Info) Description 06/14/2022 Telephone [facility] [address] [place] [phone] Livan Sharif MD [address] [place] [address] Appointment (Stress test and monitor on the [...] How often do you attend rastafarian or hinduism serv ices? Never 09/22/2021 Do [...] points; Administer PHQ-9 if positive 1 05/13/2022 [facility] [...] a nursing home (including now)? No 09/22/2021 Benton Depression Scale Answer Date Recorded Benton Depression Score 5 01/14/2021 Last EPDS Self [...] to have Coronavirus/COVID-19? Yes 06/16/2022 12:32 PM ASSISTANT PARALEGAL documented as of this encounter Miscellaneous Notes * Telephone Encounter - Amalia Matute MA - 06/14/2022 9:30 AM CST [facility] Phone Message May a [...] Not Applicable Thank you! [facility] STANT PARALEGAL documented in this encounter Plan of Treatment Upcoming Encounters Date Type Department Care Team (Late st Contact Info) Description 03/26/2024 11:20 AM CDT Office Visit [facility] Spine and Neurosurgery [address] [facility] [address] [place] [phone] Ebony iCd, EDITOR MAP EMBEDDED FIRMWARE ENGINEER 500 [place] [address] 03/27/2024 11:00 AM CDT Office Visit [facility] [place] [address] [facility] [address] [place] [address] Jelena David, [place] 3305 [facility] [place] [address] 03/29/2024 3:30 PM CDT Therapy Visit [facility] [address] [facility] 160 [place] [address] Ingris Thompson, PT [facility] 516 [facility] 106 [place], [place] [address] 04/05/2024 2:10 PM CDT Therapy Visit [facility] [address] [facility] 160 [place] [phone] Ingris Thompson, PT [facility] [address] [place] [address] 106 [place] [address] 04/19/2024 2:45 PM CDT Office Visit [address] [phone] Audrey Waite PA-C 420 [facility] [address], [facility] 603 [place] [address] 05/08/2024 1:30 PM CDT Office Visit [facility] [address] [place] [phone] Lauren Claudio PA-C [address] [place], [place] [phone] Esha Grimm PA-C [address] [place] [address] 06/21/2024 2:00 PM ASSISTANT PARALEGAL Office Visit [facility] Neurology Clinics - [address], [address] [place] [phone] [place] [address] [place], [place] [phone] Johnny Penn MD 0746 [facility] [place], [place] [address] documented as of this encounter Visit Diagnoses Not on filedocumented in this encounter Additional Health Concerns Infection Onset Date Last Indicated Resolved Time COVID-19 06/09/2022 06/09/2022 06/30/2022 11:4 1 PM ASSISTANT PARALEGAL Rule Out COVID-19 11/10/2022 11/10/2022 11/11/2022 12:17 PM CDT Rule Out COVID-19 03/07/2023 03/07/2023 03/07/2023 1:20 PM CDT Rule Out COVID-19 12/26/2023 12/26/2023 12/26/2023 9:50 AM CDT Assessment Noted Time PHQ-9 Depression Total Score: 3 05/13/20 22 8:49 PM CDT documented as of this encounter Care Teams Dairy Husbandry Teacher Relationship Specialty Start Date End Date Marija Edgar APRN EMBEDDED FIRMWARE ENGINEER PCP - General Nurse Practitioner 04/30/20 04/14/23 Esha Grimm PA-C [address] [place] [phone] PCP - General Family Medicine 05/04/23 Lita Oseguera Personal Advocate & Liaison (PAL) 02/28/20 03/27/23 Marija Edgar APRN EMBEDDED FIRMWARE ENGINEER Assigned PCP 06/08/20 04/29/23 Keisha Dotson MD [address] [place] [address] Assigned Neuroscience Provider 06/04/20 04/01/23 Diana Desir [facility] 3033 [place] [address] Pharmacist Pharmacist 04/17/21 Rain Galaviz PA-C [address] [place] [address] [address] [facility] [place] [address] Physician Law Researcher Dermatology 04/28/21 Tavia Wyatt MD [address] [place] [address] DR [address] [facility] [address] Dermatology 07/14/21 Erica Farrell APRN EMBEDDED FIRMWARE ENGINEER [address] [place] [address] Nurse Practitioner Cardiovascular Disease 09/09/21 Rich Barrett MD [address] 794[address] Physician Ophthalmology 01/21/22 Neil Kent MD [address] [place] [address] 295865 Dermatology 02/24/22 Roney Story DPM [address] [facility] [address] [place], [place] [address] Assigned Musculoskeletal Provider 03/20/22 08/13/22 Diana Desir [facility] 3033 [place] [address] Assigned MTM Pharmacist 04/07/22 Frankie Jelena TempletonSONJA woods 3305 [facility] [place] [address] Assigned Surgical Provider 05/08/22 10/08/22 Livan Sharif MD [address], [facility]00 [place] [address] Cardiovascular Disease 05/14/22 Livan Sharif MD [address], [facility] [address] [place] [address] Assigned Heart and Vascular Provider 06/12/22 07/23/22 Catherine Cm MD [address] [facility]00 [place] [address]225 Cardiovascular Disease 07/21/22 Valery Veronica, PA-C [address] [place] [address]37795 Physician Law Researcher Dermatology 07/21/22 Catherine Cm MD [address] [place] [address] [place] [address]95 Assigned Heart and Vascular Provider 07/24/22 11/05/22 Johnny Murillo MD [address] [place] [address] 980584 Assigned Musculoskeletal Provider 08/14/22 10/08/22 Brea Quinn APRN EMBEDDED FIRMWARE ENGINEER [address] [place] [address] 178418 Nurse Practitioner Dermatology 09/21/22 Brea Quinn APRN EMBEDDED FIRMWARE ENGINEER [facility]01 [facility] [place] [address] Assigned Surgical Provider 10/09/22 [place] [address] [facility] [address] [place] [address] Assigned Musculoskeletal Provider 10/09/22 Livan Sharif MD [address], [facility] [address] [place] [address] Assigned Heart and Vascular Provider 11/06/22 11/12/22 Catherine Cm MD [address] [facility] [place] [address] Assigned Heart and Vascular Provider 11/13/22 05/27/23 Sydnie [place], RN Personal Advocate & Liaison (PAL) Family Medicine 03/28/23 07/31/23 Alfonso Renteria MD 5775 [facility] 200 [place], [place] 457386 Assigned Neuroscience Provider 04/02/23 Cheng Todd PA-C [address] [place] [address] Assigned PCP 04/30/23 07/15/23 Radha Lomeli APRN EMBEDDED FIRMWARE ENGINEER [address] [place] [address] Assigned Heart and Vascular Provider 05/28/23 Tommy Davidistine SONJA Garcia [address] [facility] [address] MD Ophthalmology 06/15/23 Pao Joseph, RN Personal Advocate & Liaison (PAL) Nurse 08/01/23 11/07/23 Esha Grimm PA-C [address] [place] [address] Assigned PCP 07/16/23 Valery Veronica PA-C [address] [place] [address] Physician Law Researcher Dermatology 09/19/23 Rey Tay MD [address] [place] [address] MD Gastroenterology 09/20/23 Rocky Zepeda DO [address] [place] [address] 652535 Physician Gastroenterology 09/20/23 Philip Dumont MD [address] [place] [address] 955[address] Physician Ophthalmology 09/22/23 Meredith Carrera PA-C [address] [place] [address] 883705 Assigned Gastroenterology Provider 11/01/23 Neil Kent MD [address] [address] Dermatology 11/02/23 [place] [address] [address] Neurological Surgery 12/26/23 Audrey Waite PA-C 500 [place], [place] [address] Physician Law Researcher Dermatology 02/28/24 documented as of this encounter
--- OUTSIDE RECORDS SUMMARY | 2024-03-23 16:02 | XMS_ITS | Encounter Summary ---
Author Organization [facility] Address [address] [place] [address] Care Team Providers Care Grinder Lap Name Role Phone Lita Oseguera Unavailable Unavailable Marija Edgar APRN PEANUT FARMER Primary Care Provider + Marija Edgar APRN PEANUT FARMER Unavailable [phone] Keisha Dotson MD Unavailable Diana Desir [facility] Unavailable [phone] Rain Galaviz PA-C Unavailable Tavia Wyatt MD Unavailable Unavailable Erica Farrell APRN PEANUT FARMER Unavailable Rich Barrett MD Unavailable [phone] Neil Kent MD Unavailable Diana Desir [facility] Unavailable Jelena David OD Unavailable Livan Sharif MD Unavailable Catherine Cm MD Unavailable + Valery Veronica PA-C Unavailable [phone] Catherine Cm MD Unavailable + Johnny Murillo MD Unavailable [phone] Brea Quinn SUPERVISING AIRPLANE PILOT PEANUT FARMER Unavailable [phone] Brea Quinn SUPERVISING AIRPLANE PILOT PEANUT FARMER Unavailable [phone] Jose Francisco Johnson MD Unavailable Livan Sharif MD Unavailable Catherine Cm MD Unavailable + Sydnie Martinez RN Unavailable Unavailable Alfonso Renteria MD Unavailable [phone] Esha Grimm PA-C Primary Care Provider Cheng Todd PA-C Unavailable Radha Lomeli SUPERVISING AIRPLANE PILOT PEANUT FARMER Unavailable Jelena David OD Unavailable [phone] Pao Joseph RN Unavailable Unavailable Esha Grimm PA-C Unavailable [phone] Valery Veronica PA-C Unavailable Rey Tay MD Unavailable Rocky Zepeda DO Unavailable Philip Dumont MD Unavailable Meredith Carrera PA-C Unavailable Neil Kent MD Unavailable Juan Pablo Emmanuel MD Unavailable Audrey Waite PA-C Unavailable [phone] Encounter Details Date Type Department Care Team (Late st Contact Info) Description 10/06/2022 [facility] 0482 [facility] [place] [address] Brea Quinn, SUPERVISING AIRPLANE PILOT PEANUT FARMER 6401 [facility] [place] [address] Social History Tobacco [...] How often do you attend christianity or jehovah's witness serv ices? Never 09/22/2021 [...] points; Administer PHQ-9 if positive 1 10/10/2022 [facility] - Occupational Stress Questionnaire Answer Date [...] in a fpc (including now)? No 09/22/2021 [place] Depression Scale Answer Date Recorded [...] Visit [facility] 1747 [facility] 100 [place] [address] Ebony Cid, SUPERVISING AIRPLANE PILOT [facility] 500 [place] [address] 03/27/2024 11:00 AM CDT Office Visit [facility] [place] [address] [facility] [address] [place] [address] Jelena David, 3305 [facility] [place] [address] 03/29/2024 3:30 PM CDT Therapy Visit [facility] [address] [place] [address] 160 [place] [address] Ingris Thompson, PT [facility] [address] [place] [address] 04/05/2024 2:10 PM CDT Therapy Visit [address] 160 [place] [phone] Ingris Thompson, PT [facility] [address] [place] [address] 04/19/2024 2:45 PM CDT Office Visit [facility] 830 [place] [phone] Audrey Waite PA-C 420 [facility] [address], [facility] 603 [place] [address] 05/08/2024 1:30 PM CDT Office Visit [facility] [address] [place] [phone] Lauren Claudio PA-C [address] [place] [address] Esha Grimm PA-C [address] [place] [address] 06/21/2024 2:00 PM MEDICAL OFFICE COORDINATOR Office Visit [facility] - [address], [address] [place] [phone] [place] [address] [place] [address] Johnny Penn MD 6545 [place], [place] [phone] documented as of this encounter Visit Diagnoses Not on filedocumented in this encounter Additional Health Concerns Infection Onset Date Last Indicated Resolved Time Rule Out COVID-19 11/10/2022 11/10/2022 11/11/2022 12:17 PM CDT Rule Out COVID-19 03/07/2023 03/07/2023 03/07/2023 1:20 PM CDT Rule Out COVID-19 12/26/2023 12/26/2023 12/26/2023 9:50 AM CDT Assessment Noted Time PHQ-9 Depression Total Score: 5 08/27/19 1:14 PM MEDICAL OFFICE COORDINATOR documented as of this encounter Care Teams Grinder Lap Relationship Specialty Start Date End Date Marija Edgar APRN PEANUT FARMER PCP - General Nurse Practitioner 04/30/20 04/14/23 Esha Grimm PA-C [address] [place] [address] PCP - General Family Medicine 05/04/23 Lita Oseguera Personal Advocate & Liaison (PAL) 02/28/20 03/27/23 Marija Edgar APRN PEANUT FARMER Assigned PCP 06/08/20 04/29/23 Keisha Dotson MD 909 [place] [address] Assigned Neuroscience Provider 06/04/20 04/01/23 Diana Desir, [facility] 3033 [place] [address] Pharmacist Pharmacist 04/17/21 Rain Galaviz PA-C [address] [place] [address] [place] [address] Physician Wood Stainer Dermatology 04/28/21 Tavia Wyatt MD [address] [place] [address] [place] [address] Dermatology 07/14/21 Erica Farrell APRN PEANUT FARMER 6405 [facility]200 [place] [id number] Nurse Practitioner Cardiovascular Disease 09/09/21 Rich Barrett MD 516 [facility] 9A [place], [place] 5614[address] Physician Ophthalmology 01/21/22 Neil [place] MD [address] [place] [address] 030045 Dermatology 02/24/22 Diana Desir, [facility] 3033 [place], [place] 962066 Assigned MTM Pharmacist 04/07/22 Jelena David OD [address] [facility] [place] [address] Assigned Surgical Provider 05/08/22 10/08/22 Livan Sharif MD [address], [place] [address] [place] [address] Cardiovascular Disease 05/14/22 Catherine Cm MD [address] [place] [address] [place] 291215 Cardiovascular Disease 07/21/22 Valery Veronica, PA-C 909 [place], [place] 174935 Physician Wood Stainer Dermatology 07/21/22 Catherine Cm MD [address] [place] [address] [place] [address] Assigned Heart and Vascular Provider 07/24/22 11/05/22 Johnny Murillo MD [facility] [place] 9[address]0100 [place], [place] 581334 Assigned Musculoskeletal Provider 08/14/22 10/08/22 Brea Quinn APRN PEANUT FARMER [address] [place] [address] Nurse Practitioner Dermatology 09/21/22 Brea Quinn APRN PEANUT FARMER [address] [place] [address] [facility] [place] [place] 565082 Assigned Surgical Provider 10/09/22 [place] [address] [address] Assigned Musculoskeletal Provider 10/09/22 Livan Sharif MD [address] [facility] [address] [place] [address] Assigned Heart and Vascular Provider 11/06/22 11/12/22 Catherine Cm MD [address] [facility] [address] [place] [address] Assigned Heart and Vascular Provider 11/13/22 05/27/23 Sydnie Martinez RN Personal Advocate & Liaison (PAL) Family Medicine 03/28/23 07/31/23 Alfonso Renteria MD [address] [facility] 200 [place], [place] 157176 Assigned Neuroscience Provider 04/02/23 Cheng Todd PA-C [address] [place] [address] Assigned PCP 04/30/23 07/15/23 Radha Lomeli APRN PEANUT FARMER 6405 [facility] [address] [place] [address] Assigned Heart and Vascular Provider 05/28/23 Jelena David OD [address] [facility] [place] [address] MD Ophthalmology 06/15/23 Pao Joseph, VJ Personal Advocate & Liaison (PAL) Nurse 08/01/23 11/07/23 Esha Grimm PA-C [address] [place] [address] Assigned PCP 07/16/23 Valery Veronica PA-C [address] [place] [address] 049455 Physician Wood Stainer Dermatology 09/19/23 Rey Tay MD [address] [place] [address] 789785 Gastroenterology 09/20/23 Rocky Zepeda DO [address] [place] [address] 506525 Physician Gastroenterology 09/20/23 Philip Dumont MD [address] [place] [address] 791885 Physician Ophthalmology 09/22/23 Meredith Carrera PA-C 909 [place], [place] 108535 Assigned Gastroenterology Provider 11/01/23 Neil [place] MD [address] 714210 Dermatology 11/02/23 [place] [address] RAZO [address] [place] [address] [phone] Neurological Surgery 12/26/23 Audrey Waite PA-C 500 [place], [place] 840135 Physician Wood Stainer Dermatology 02/28/24 documented as of this encounter
--- OUTSIDE RECORDS SUMMARY | 2024-03-23 16:02 | XMS_ITS | Encounter Summary ---
Author Organization [facility] Address [address] [place] [address] Care Team Providers Care Solar Process Engineer Name Role Phone Lita Oseguera Unavailable Unavailable Marija Edgar APRN QUARTER LINING SMOOTHER Primary Care Provider + Marija Edgar APRN QUARTER LINING SMOOTHER Unavailable [phone] Keisha Dotson MD Unavailable [phone] Diana Desir [facility] Unavailable [phone] Rain Galaviz PA-C Unavailable Tavia Wyatt MD Unavailable Unavailable Erica Farrell APRN QUARTER LINING SMOOTHER Unavailable Rich Barrett MD Unavailable [phone] Neil [place] MD Unavailable Roney Story DPM Unavailable [phone] Diana Desir [facility] Unavailable [phone] Jelena David OD Unavailable Galo Burrell MD Unavailable Unavailable Livan Sharif MD Unavailable Livan Sharif MD Unavailable Catherine Cm MD Unavailable + Valery Veronica PA-C Unavailable Catherine Cm MD Unavailable + Johnny Murillo MD Unavailable [phone] Brea Quinn LENS CEMENTER QUARTER LINING SMOOTHER Unavailable [phone] Brea Quinn LENS CEMENTER QUARTER LINING SMOOTHER Unavailable [phone] Jose Francisco Johnson MD Unavailable Livan Sharif MD Unavailable Catherine Cm MD Unavailable + Sydnie Martinez RN Unavailable Unavailable Alfonso Renteria MD Unavailable Esha Grimm PA-C Primary Care Provider Cheng Todd PA-C Unavailable Radha Lomeli LENS CEMENTER QUARTER LINING SMOOTHER Unavailable Jelena David OD Unavailable Pao Joseph RN Unavailable Unavailable Esha Grimm PA-C Unavailable [phone] Valery Veronica PA-C Unavailable [phone] Rey Tay MD Unavailable Rocky Zepeda DO Unavailable Philip Dumont MD Unavailable [phone] Meredith Carrera PA-C Unavailable [phone] Neil [place] MD Unavailable Juan Pablo Emmanuel MD Unavailable Audrey Waite PA-C Unavailable [phone] Encounter Details Date Type Department Care Team (Late st Contact Info) Description 05/11/2022 [facility] [address] [address] DesirDiana, [facility] 3033 [place], [place] [phone] Social History Tobacco Use Types Packs/Day Years [...] How often do you attend restoration or rastafari serv ices? Never 09/22/2021 Do [...] points; Administer PHQ-9 if positive 1 05/13/2022 [facility] - Occupational Stress Questionnaire [...] a group home (including now)? No 09/22/2021 [place] Depression Scale Answer Date Recorded [place] Depression Score 5 01/14/2021 Last EPDS Self [...] [facility] 1747 [facility] 100 [place] [address] Ebony Cid, LENS CEMENTER [facility] 500 [place], [place] 470515 03/27/2024 11:00 AM CDT Office Visit [facility] 3305 [facility] [address] [place] [phone] Jelena David, 3305 [facility] [place] [address] 03/29/2024 3:30 PM CDT Therapy Visit [facility] [address] [place] [address] 160 [place] [phone] Ingris Thompson, PT [facility] [address] [place] [address] 04/05/2024 2:10 PM CDT Therapy Visit [facility] [address] [place] [address] [address] [place] [phone] Ingris Thompson, PT [facility] [address] [place] [address] 04/19/2024 2:45 PM CDT Office Visit [facility] 830 [place] [phone] Audrey Waite PA-C [address], [facility] 603 [place], [place] 540685 05/08/2024 1:30 PM CDT Office Visit [facility] [address] [place] [address] Lauren Claudio PA-C [address] [place], [place] [phone] Esha Grimm PA-C [address] [place] [address] 06/21/2024 2:00 PM IN STORE MARKETER Office Visit [facility] Clinics - [address], [address] [place] [phone] [place] [address] [place] [address] Johnny Penn MD [address] [place] [address] 365705 documented as of this encounter Visit Diagnoses Not on filedocumented in this encounter Additional Health Concerns Infection Onset Date Last Indicated Resolved Time Rule Out COVID-19 05/17/2022 05/17/2022 05/17/2022 10:20 PM IN STORE MARKETER Rule Out COVID-19 06/09/2022 06/09/2022 06/09/2022 9:35 AM IN STORE MARKETER COVID-19 06/09/2022 06/09/2022 06/30/2022 11:4 1 PM IN STORE MARKETER Rule Out COVID-19 11/10/2022 11/10/2022 11/11/2022 12:17 PM CDT Rule Out COVID-19 03/07/2023 03/07/2023 03/07/2023 1:20 PM CDT Rule Out COVID-19 12/26/2023 12/26/2023 12/26/2023 9:50 AM CDT Assessment Noted Time PHQ-9 Depression Total Score: 3 05/13/20 8:49 PM CDT documented as of this encounter Care Teams Solar Process Engineer Relationship Specialty Start Date End Date Marija Edgar APRN QUARTER LINING SMOOTHER PCP - General Nurse Practitioner 04/30/20 04/14/23 Esha Grimm PA-C [address] [place] [phone] PCP - General Family Medicine 05/04/23 Lita Oseguera Personal Advocate & Liaison (PAL) 02/28/20 03/27/23 Marija Edgar APRN QUARTER LINING SMOOTHER Assigned PCP 06/08/20 04/29/23 Keisha Dotson MD 909 [place], [place] 655235 Assigned Neuroscience Provider 06/04/20 04/01/23 Diana Desir [facility] 3033 [place], [place] 887446 Pharmacist Pharmacist 04/17/21 Rain Galaviz PA-C [address] [place] [address] [place] [address] Physician Swine Genetics Researcher Dermatology 04/28/21 Tavia Wyatt MD [address] [place] [address] [place] [address] Dermatology 07/14/21 Erica Farrell APRN QUARTER LINING SMOOTHER [address] [place] [address] Nurse Practitioner Cardiovascular Disease 09/09/21 Rich Barrett MD [address] 137905 Physician Ophthalmology 01/21/22 Neil Kent MD 500 [place], [place] 484325 Dermatology 02/24/22 [place] [address] [facility] [address] [place] [address] Assigned Musculoskeletal Provider 03/20/22 08/13/22 Diana Desir, [facility] 3033 [place], [place] 841376 Assigned MTM Pharmacist 04/07/22 Jelena David OD 3305 [facility] [place] [address] Assigned Surgical Provider 05/08/22 10/08/22 Galo Burrell MD Assigned Heart and Vascular Provider 04/17/22 06/11/22 Livan Sharif MD [address] [place] [address] [place] [address] Cardiovascular Disease 05/14/22 Livan Sharif MD [address] [place] [address] [place] [address] Assigned Heart and Vascular Provider 06/12/22 07/23/22 Catherine Cm MD [address] [place] [address] Cardiovascular Disease 07/21/22 Valery Veronica, PA-C [address] [place] [address] 761465 Physician Swine Genetics Researcher Dermatology 07/21/22 Catherine Cm MD [address] [place] [address] [place] [address] Assigned Heart and Vascular Provider 07/24/22 11/05/22 Johnny Murillo MD [address] [place] [address] 689514 Assigned Musculoskeletal Provider 08/14/22 10/08/22 Brea Quinn APRN QUARTER LINING SMOOTHER [address] [place] [address] 906125 Nurse Practitioner Dermatology 09/21/22 Brea Quinn APRN QUARTER LINING SMOOTHER [address] [place] [address] [place] 070752 Assigned Surgical Provider 10/09/22 [place] [address] [facility] 300 [place] [address] Assigned Musculoskeletal Provider 10/09/22 Livan Shraif MD [address] [address] [place] [address] Assigned Heart and Vascular Provider 11/06/22 11/12/22 Catherine Cm MD [address] [address] [place] [address] Assigned Heart and Vascular Provider 11/13/22 05/27/23 Sydnie Martinez RN Personal Advocate & Liaison (PAL) Family Medicine 03/28/23 07/31/23 Alfonso Renteria MD [address] [facility] 200 [place] [address] Assigned Neuroscience Provider 04/02/23 Cheng Todd PA-C [address] [place] [address] Assigned PCP 04/30/23 07/15/23 Radha Lomeli, ARLENE QUARTER LINING SMOOTHER [address] [place] [address] Assigned Heart and Vascular Provider 05/28/23 Jelena David OD [address] [facility] [place] [address] Ophthalmology 06/15/23 Pao Joseph RN Personal Advocate & Liaison (PAL) Nurse 08/01/23 11/07/23 Esha Grimm PA-C [address] [place] [address]-885683 Assigned PCP 07/16/23 Valery Veronica PA-C [address] [place] [address] 465965 Physician Swine Genetics Researcher Dermatology 09/19/23 Rey Tay MD [address] [place] [address] 962885 MD Gastroenterology 09/20/23 Rocky Zepeda DO [address] [place] [address] 973525 Physician Gastroenterology 09/20/23 Philip Dumont MD [address] [place] [address] 830465 Physician Ophthalmology 09/22/23 Meredith Carrera PA-C [address] [place] [address] Assigned Gastroenterology Provider 11/01/23 Neil Kent MD [address] [address] Dermatology 11/02/23 [place] [address] [place] [address] Neurological Surgery 12/26/23 Audrey Waite PA-C [address] [place] [address] Physician Swine Genetics Researcher Dermatology 02/28/24 documented as of this encounter
--- OUTSIDE RECORDS SUMMARY | 2024-03-23 16:02 | XMS_ITS | Encounter Summary ---
Author Organization [place] Address [address] [place] [address] Care Team Providers Care Small Package And Bundle Sorter Clerk Name Role Phone Lita Oseguera Unavailable Unavailable Marija Edgar APRN AMMONIA OPERATOR Primary Care Provider + Marija Edgar APRN AMMONIA OPERATOR Unavailable [phone] Keisha Dotson MD Unavailable [phone] Diana Desir [facility] Unavailable [phone] Rain Galaviz PA-C Unavailable [phone] Tavia Wyatt MD Unavailable Unavailable Erica Farrell APRN AMMONIA OPERATOR Unavailable Rich Barrett MD Unavailable [phone] Neil Kent MD Unavailable Roney Story DPM Unavailable [phone] Diana Desir [facility] Unavailable [phone] Jelena David OD Unavailable [phone] Livan Sharif MD Unavailable Livan Sharif MD Unavailable Catherine Cm MD Unavailable + Valery Veronica PA-C Unavailable Catherine Cm MD Unavailable + Johnny Murillo MD Unavailable [phone] Brea Quinn [employer] AMMONIA OPERATOR Unavailable [phone] Brea Quinn [employer] AMMONIA OPERATOR Unavailable [phone] Jose Francisco Johnson MD Unavailable Livan Sharif MD Unavailable Catherine Cm MD Unavailable + Sydnie Martinez RN Unavailable Unavailable Alfonso Renteria MD Unavailable Esha Grimm PA-C Primary Care Provider Cheng Todd PA-C Unavailable Radha Lomeli [employer] AMMONIA OPERATOR Unavailable Jelena David Radha OD Unavailable Pao Joseph RN Unavailable Unavailable Esha Grimm PA-C Unavailable [phone] Valery Veronica PA-C Unavailable [phone] Rey Tay MD Unavailable Rocky Zepeda DO Unavailable Philip Dumont MD Unavailable [phone] Meredith Carrera PA-C Unavailable Neil Kent MD Unavailable Juan Pablo Emmanuel MD Unavailable Audrey Waite PA-C Unavailable [phone] Encounter Details Date Type Department Care Team (Late st Contact Info) Description 07/07/2022 [facility] Heart [address] [phone] Livan Sharif MD [address] [place] [address] Social History Tobacco Use Types Packs/Day Years [...] if positive 1 05/13/2022 [facility] - Occupational Stress Questionnaire Answer [...] a long term (including now)? No 09/22/2021 Chapman Depression Scale Answer Date Recorded Chapman Depression Score 5 01/14/2021 Last EPDS Self [...] Coronavirus/COVID-19? No / Unsure 06/25/2022 8:44 AM CREDIT OR LOANS OFFICER documented as of this encounter Plan of Treatment Upcoming Encounters Date Type Department Care Team (Late st Contact Info) Description 03/26/2024 11:20 AM CDT Office Visit [facility] Spine and Neurosurgery [address] [place] [address] 100 [place] [address] Ebony Cid, FALAFEL CART COOK [facility] [address] [place] [address] 03/27/2024 11:00 AM CDT Office Visit [facility] [address] [facility] [address] [place] [phone] Jelena David, [address] [facility] [place] [address] 03/29/2024 3:30 PM CDT Therapy Visit [address] 160 [place] [phone] Ingris Thompson, PT [facility] [address] [place] [address] 04/05/2024 2:10 PM CDT Therapy Visit [address] [place] [phone] Ingris Thompson, PT [facility] [address] [place] [address] 04/19/2024 2:45 PM CDT Office Visit [address] [phone] Audrey Waite PA-C [address], [facility] 6[address] [place], [place] 1399[address] 05/08/2024 1:30 PM CDT Office Visit [facility] [address] [place] [address] Lauren Claudio PA-C [address] [place] [address] Esha Grimm PA-C [address] [place] [address] 06/21/2024 2:00 PM CREDIT OR LOANS OFFICER Office Visit [facility] Neurology Clinics - [address], [address] [place] [phone] [place] [address] [place], [place] 8[address] Johnny Penn MD 6545 [place], [place] [address]6935 documented as of this encounter Visit Diagnoses [...] documented as of this encounter Care Teams Small Package And Bundle Sorter Clerk Relationship Specialty Start Date End Date Marija Edgar APRN AMMONIA OPERATOR PCP - General Nurse Practitioner 04/30/20 04/14/23 sEha Grimm PA-C [address] [place] [address] PCP - General Family Medicine 05/04/23 Lita Oseguera Personal Advocate & Liaison (PAL) 02/28/20 03/27/23 Marija Edgar APRN AMMONIA OPERATOR Assigned PCP 06/08/20 04/29/23 Keisha Dotson MD 9[address] [place], [place] 131475 Assigned Neuroscience Provider 06/04/20 04/01/23 Diana Desir, [facility] [address] [place] [address] Pharmacist Pharmacist 04/17/21 Rain Galaviz PA-C [address] [place] [address] [address] [place] [address] Physician Early Childhood Education Worker Dermatology 04/28/21 Tavia Wyatt MD [address] [place] [address] [address] [place] [address] Dermatology 07/14/21 Erica Farrell APRN AMMONIA OPERATOR [address] [place] [address] Nurse Practitioner Cardiovascular Disease 09/09/21 Rich Barrett MD [address] [facility] 9[address] [place], [place] 7585[address] Physician Ophthalmology 01/21/22 Neil Kent MD [address] [place], [place] 818795 Dermatology 02/24/22 Roney Story DPM [address] [address] [facility] [address] [place], [place] 734[address] Assigned Musculoskeletal Provider 03/20/22 08/13/22 [facility] [address] [place], [place] [address] Assigned MTM Pharmacist 04/07/22 Jelena David OD [address] [facility] [place] [address] Assigned Surgical Provider 05/08/22 10/08/22 Livan Sharif MD [address] [place] [address] Cardiovascular Disease 05/14/22 Livan Sharif MD [address] [place] [address] Assigned Heart and Vascular Provider 06/12/22 07/23/22 Catherine Cm MD [address] [place] [address] Cardiovascular Disease 07/21/22 Valery Veronica, PA-C [address] [place] [address] Physician Early Childhood Education Worker Dermatology 07/21/22 Catherine Cm MD [address] [facility] [address] [place] 313745 Assigned Heart and Vascular Provider 07/24/22 11/05/22 Johnny Murillo MD [address] [place] [address]7554 Assigned Musculoskeletal Provider 08/14/22 10/08/22 Brea Quinn APRN AMMONIA OPERATOR [address] [place] [address] 313425 Nurse Practitioner Dermatology 09/21/22 Brea Quinn APRN AMMONIA OPERATOR [address] [place] [address] [place] [address] Assigned Surgical Provider 10/09/22 [place] [address] 909227 Assigned Musculoskeletal Provider 10/09/22 Livan Sharif MD [address] [place] [address] Assigned Heart and Vascular Provider 11/06/22 11/12/22 Catherine Cm MD [address] [place] [address] Assigned Heart and Vascular Provider 11/13/22 05/27/23 Sydnie Martinez RN Personal Advocate & Liaison (PAL) Family Medicine 03/28/23 07/31/23 Alfonso Renteria MD [address] [facility] [address] [place] [address] Assigned Neuroscience Provider 04/02/23 Cheng Todd PA-C [address] [place] [address] [id number] Assigned PCP 04/30/23 07/15/23 Radha Lomeli APRN AMMONIA OPERATOR [address] [place] [address] Assigned Heart and Vascular Provider 05/28/23 Jelena David OD [address] [facility] [place] [address] Ophthalmology 06/15/23 Pao Joseph, VJ Personal Advocate & Liaison (PAL) Nurse 08/01/23 11/07/23 Esha Grimm PA-C [address] [place] [address] Assigned PCP 07/16/23 Valery Veronica PA-C 909 [place], [place] 7943[address] Physician Early Childhood Education Worker Dermatology 09/19/23 Rey Tay MD 909 [place] [address] Gastroenterology 09/20/23 Rocky Zepeda DO 500 [place] [address] Physician Gastroenterology 09/20/23 Philip Dumont MD 6 [place] [address] Physician Ophthalmology 09/22/23 Meredith Carrera PA-C 9 [place] [address] Assigned Gastroenterology Provider 11/01/23 Neil Kent MD [address] [address] Dermatology 11/02/23 [place] [address] [address] Neurological Surgery 12/26/23 Aurdey Waite PA-C 500 [place] [address] Physician Early Childhood Education Worker Dermatology 02/28/24 documented as of this encounter
--- OUTSIDE RECORDS SUMMARY | 2024-03-23 16:02 | XMS_ITS | Encounter Summary ---
Author Organization [place] Address [address] [place] [address] Care Team Providers Care Anesthesiologists' Assistant Name Role Phone Lita Oseguera Unavailable Unavailable Marija Edgar APRN JOB SUPERINTENDENT Primary Care Provider + Marija Edgar APRN JOB SUPERINTENDENT Unavailable [phone] Keisha Dotson MD Unavailable [phone] Diana Desir [facility] Unavailable [phone] Rain Galaviz PA-C Unavailable [phone] Tavia Wyatt MD Unavailable Unavailable Erica Farrell APRN JOB SUPERINTENDENT Unavailable Rich Barrett MD Unavailable [phone] Neil Kent MD Unavailable Roney Story DPM Unavailable [phone] Diana Desir [facility] Unavailable [phone] Jelena David OD Unavailable Livan Sharif MD Unavailable Livan Sharif MD Unavailable Catherine Cm MD Unavailable + Valery Veronica PA-C Unavailable Catherine Cm MD Unavailable + Johnny Murillo MD Unavailable [phone] Brea Quinn DIRECTOR OF PUBLIC HEALTH JOB SUPERINTENDENT Unavailable [phone] Brea Quinn DIRECTOR OF PUBLIC HEALTH JOB SUPERINTENDENT Unavailable [phone] Jose Francisco Johnson MD Unavailable Livan Sharif MD Unavailable Catherine Cm MD Unavailable + Sydnie [place] RN Unavailable Unavailable Alfonso Renteria MD Unavailable Esha Grimm PA-C Primary Care Provider Cheng Todd PA-C Unavailable Radha Lomeli DIRECTOR OF PUBLIC HEALTH JOB SUPERINTENDENT Unavailable Jelena David Radha OD Unavailable Pao Joseph RN Unavailable Unavailable Esha Grimm PA-C Unavailable [phone] Valery Veronica PA-C Unavailable [phone] Rey Tay MD Unavailable Rocky Zepeda DO Unavailable Philip Dumont MD Unavailable Meredith Carrera PA-C Unavailable Neil Kent MD Unavailable Juan Pablo Emmanuel MD Unavailable [phone] Audrey Waite PA-C Unavailable [phone] Encounter Details Date Type Department Care Team (Late st Contact Info) Description 07/20/2022 [facility] Heart [address] [address] aPo Donahue RN Social History Tobacco Use Types Packs/Day [...] How often do you attend yazidism or congregation serv ices? Never 09/22/2021 Do [...] points; Administer PHQ-9 if positive 1 05/13/2022 [facility] Occupat ional [facility] - Occupational Stress Questionnaire Answer [...] in a intermediate (including now)? No 09/22/2021 [place] Depression Scale Answer Date Recorded [place] [...] Coronavirus/COVID-19? No / Unsure 07/23/2022 6:45 AM ED MANAGER documented as of this encounter Plan of Treatment Upcoming Encounters Date Type Department Care Team (Late st Contact Info) Description 03/26/2024 11:20 AM CDT Office Visit [facility] Spine and Neurosurgery [address] [facility] [address] [place] [phone] Ebony Cid, [facility] 500 [place] [address] 03/27/2024 11:00 AM CDT Office Visit [facility] [place] [address] [facility] [address] [place] [address] Jelena David, [address] [facility] [place] [address] 03/29/2024 3:30 PM CDT Therapy Visit [facility] [address] [place] [address] 160 [place] [address] Ingris Thompson, PT [facility] [address] [place] [address] 04/05/2024 2:10 PM CDT Therapy Visit [address] [place] [phone] [facility]gr[facility] [address] [place] [address] 04/19/2024 2:45 PM CDT Office Visit [facility] 830 [place] [phone] Audrey Waite PA-C [address] [facility] [address], [facility] 603 [place] [address] 05/08/2024 1:30 PM CDT Office Visit [facility] [address] [place] [address] Lauren Claudio PA-C [address] [place] [address] Esha Grimm PA-C [address] [place] [address] 06/21/2024 2:00 PM ED MANAGER Office Visit [facility] Neurology Clinics - [address], [address] [place] [phone] [place] [address] [place] [address] Johnny Penn MD 6545 [place] [address] documented as of this encounter [...] documented as of this encounter Care Teams Anesthesiologists' Assistant Relationship Specialty Start Date End Date Marija Edgar APRN JOB SUPERINTENDENT PCP - General Nurse Practitioner 04/30/20 04/14/23 Esha Grimm PA-C [address] [place] [address] PCP - General Family Medicine 05/04/23 Lita Oseguera Personal Advocate & Liaison (PAL) 02/28/20 03/27/23 Marija Edgar APRN JOB SUPERINTENDENT Assigned PCP 06/08/20 04/29/23 Keisha Dotson MD 909 [place] [address] Assigned Neuroscience Provider 06/04/20 04/01/23 [facility] 3033 [place] [address] Pharmacist Pharmacist 04/17/21 Rain Galaviz PA-C [address] [place] [address] [place] [address] Physician Supervisor Ski Production Dermatology 04/28/21 Tavia Wyatt MD [address] [place] [address] [place] [address] Dermatology 07/14/21 Erica Farrell APRN JOB SUPERINTENDENT [address] [facility] [address] [place] [address] Nurse Practitioner Cardiovascular Disease 09/09/21 Rich Barrett MD [address] [facility] 9A [place] [address] Physician Ophthalmology 01/21/22 Neil Kent MD 500 [place], [place] 159005 Dermatology 02/24/22 Roney Story DPM [address] [facility] [address] [place], [place] 13[address] Assigned Musculoskeletal Provider 03/20/22 08/13/22 Diana Desir, [facility] [address] [place], [place] [address] Assigned MTM Pharmacist 04/07/22 Jelena David OD [address] [facility] [place] [address] Assigned Surgical Provider 05/08/22 10/08/22 Livan Sharif MD [address] [place] [address] Cardiovascular Disease 05/14/22 Livan Sharif MD [address] [place] [address] Assigned Heart and Vascular Provider 06/12/22 07/23/22 Catherine Cm MD [address] [place] [address] Cardiovascular Disease 07/21/22 Valery Veronica PAUcheC 909 [place], [place] 7[address] Physician Supervisor Ski Production Dermatology 07/21/22 Catherine Cm MD [address] [place] [address] Assigned Heart and Vascular Provider 07/24/22 11/05/22 Johnny Murillo MD [address] [place] [address] Assigned Musculoskeletal Provider 08/14/22 10/08/22 Brea Quinn APRN JOB SUPERINTENDENT [address] [place] [address] Nurse Practitioner Dermatology 09/21/22 Brea Quinn APRN JOB SUPERINTENDENT [address] [place] [address] Assigned Surgical Provider 10/09/22 [place] [address] [address] Assigned Musculoskeletal Provider 10/09/22 Livan Sharif MD [address] [place], [address] [place] [address] Assigned Heart and Vascular Provider 11/06/22 11/12/22 Catherine Cm MD [address] [place] [address] Assigned Heart and Vascular Provider 11/13/22 05/27/23 Sydnie Martinez, VJ Personal Advocate & Liaison (PAL) Family Medicine 03/28/23 07/31/23 Alfonso Renteria MD 5775 [facility] [address] [place] [address] Assigned Neuroscience Provider 04/02/23 Cheng Todd PA-C [address] [place] [address] [id number] Assigned PCP 04/30/23 07/15/23 Radha Lomeli APRN JOB SUPERINTENDENT 6[address] [facility] [address] [place] [address] Assigned Heart and Vascular Provider 05/28/23 Jelena David OD [address] [facility] [place] [address] Ophthalmology 06/15/23 Pao Joseph RN Personal Advocate & Liaison (PAL) Nurse 08/01/23 11/07/23 Esha Grimm PA-C [address] [place] [address] Assigned PCP 07/16/23 Valery Veronica PA-C [address] [place] [address]8865 Physician Supervisor Ski Production Dermatology 09/19/23 Rey Tay MD [address] [place] [address]655 MD Gastroenterology 09/20/23 Rocky Zepeda DO 500 [place], [place] 730385 Physician Gastroenterology 09/20/23 Philip Dumont MD 516 [place], [place] 078135 Physician Ophthalmology 09/22/23 Meredith Carrera PA-C 9 [place], [place] 055085 Assigned Gastroenterology Provider 11/01/23 Neil Kent MD [address] 216530 Dermatology 11/02/23 [place] [address] [address] Neurological Surgery 12/26/23 Audrey Waite PA-C 500 [place], [place] 97[address] Physician Supervisor Ski Production Dermatology 02/28/24 documented as of this encounter
--- OUTSIDE RECORDS SUMMARY | 2024-03-23 16:02 | XMS_ITS | Encounter Summary ---
Author Organization [facility] Address [address] [place] [address] Care Team Providers Care Pull Socket Assembler Name Role Phone Lita Oseguera Unavailable Unavailable Marija Edgar APRN CORRECTIONAL FACILITY PSYCHIATRIST Primary Care Provider + Marija Edgar APRN CORRECTIONAL FACILITY PSYCHIATRIST Unavailable [phone] Keisha Dotson MD Unavailable [phone] Diana Desir [facility] Unavailable [phone] Rain Galaviz PA-C Unavailable Tavia Wyatt MD Unavailable Unavailable Erica Farrell APRN CORRECTIONAL FACILITY PSYCHIATRIST Unavailable Rich Barrett MD Unavailable [phone] Neil Kent MD Unavailable Diana Desir [facility] Unavailable [phone] Livan Sharif MD Unavailable Catherine Cm MD Unavailable + Valery Veronica PA-C Unavailable [phone] Catherine Cm MD Unavailable + Brea Quinn APRN CORRECTIONAL FACILITY PSYCHIATRIST Unavailable [phone] [place], Brea P DIRECTOR HRIS CORRECTIONAL FACILITY PSYCHIATRIST Unavailable Jose Francisco Johnson MD Unavailable Livan Sharif MD Unavailable Catherine Cm MD Unavailable + Sydnie Martinez RN Unavailable Unavailable Alfonso Renteria MD Unavailable [phone] Esha Grimm PA-C Primary Care Provider Cheng Todd PA-C Unavailable Armani Radha Sia DIRECTOR HRIS CORRECTIONAL FACILITY PSYCHIATRIST Unavailable Jelena David OD Unavailable Pao Joseph RN Unavailable Unavailable Esha Grimm PA-C Unavailable [phone] Valery Veronica PA-C Unavailable Rey Tay MD Unavailable Rocky Zepeda DO Unavailable Philip Dumont MD Unavailable Meredith Carrera PA-C Unavailable [phone] Neil Kent MD Unavailable Juan Pablo Emmanuel MD Unavailable [phone] Audrey Waite PA-C Unavailable Reason for Visit * Reason Onset Date Comments Pt. Information/instruction 10/11/2022 Appointment 10/11/2022 Encounter Details Date Type Department Care Team (Late st Contact Info) Description 10/11/[address] [facility] Sports Medicine [facility] [address] [facility] [address] [place] [address] [place] [address] [place] [address] Pt. Information/instructio n; Appointment Social [...] How often do you attend rastafarian or sikh serv ices? Never 09/22/2021 Do [...] Answer Date Recorded PHQ-2 Score 1 10/11/2022 [facility] - Occupational Stress Questionnaire Answer Date [...] in a long-term (including now)? No 09/22/2021 [place] Depression Scale Answer Date Recorded [place] Depression Score 5 01/14/2021 Last EPDS Self [...] voicemail: yes Reason for Call: Other: Patient's CMeredith is wondering if she can also be conference in on patient's upcoming appointment (10/27). Action Taken: Other: [facility] Sports Medicine Travel Screening: Not Applicable * [...] Reason for Call: Other: Please contact patient's base wad operator adjusterRosalva so she can authorize patient's MRI. Rosalva's contact info: phone# [phone] fax# [phone] Action Taken: Other: [facility] Sports [facility] Travel Screening: Not Applicable documented in this encounter Plan of Treatment Upcoming Encounters Date Type Department Care Team (Late st Contact Info) Description 03/26/2024 11:20 AM CDT Office Visit [facility] Spine and Neurosurgery [address] [facility] 100 [place] [phone] Ebony Cid, DIRECTOR HRIS [facility] 500 [place] [address] 03/27/2024 11:00 AM CDT Office Visit [facility] 3305 [facility] 160 [place] [phone] Jelena David, [address] [facility] [place] [address] 03/29/2024 3:30 PM CDT Therapy Visit [facility] [address] [place] [phone] Ingris Thompson, PT [facility] [address] [place] [address] 04/05/2024 2:10 PM CDT Therapy Visit [facility] [address] [place] [phone] Ingris Thompson, PT [facility] [address] [place] [address] 161005 04/19/2024 2:45 PM CDT Office Visit [address] [phone] Audrey Waite PA-C [address] [place] [address] B385, [facility] [address] [place], [place] 850015 05/08/2024 1:30 PM CDT Office Visit [facility] [address] [place] [address] Lauren Claudio PA-C [address] [place], [place] [phone] Esha Grimm PA-C [address] [place] [address] 06/21/2024 2:00 PM HYDRAULIC MINER Office Visit [facility] Neurology [address], [address] [place] [address] [place] [address] [phone] Johnny Penn MD [address]45 [place], [place] [phone] documented as of this encounter Visit Diagnoses [...] documented as of this encounter Care Teams Pull Socket Assembler Relationship Specialty Start Date End Date Marija Edgar APRN CORRECTIONAL FACILITY PSYCHIATRIST PCP - General Nurse Practitioner 04/30/20 04/14/23 Esha Grimm PA-C [address] [place] [address] PCP - General Family Medicine 05/04/23 Lita Oseguera Personal Advocate & Liaison (PAL) 02/28/20 03/27/23 Marija Edgar APRN CORRECTIONAL FACILITY PSYCHIATRIST Assigned PCP 06/08/20 04/29/23 Keisha Dotson MD 9 [place], [place] 936215 Assigned Neuroscience Provider 06/04/20 04/01/23 [facility] [address] [place], [place] 768356 Pharmacist Pharmacist 04/17/21 Rain Galaviz PA-C [address] [place] [address] [address] [place] [address] Physician Crawler Crane Operator Dermatology 04/28/21 Tavia Wyatt MD [address] [place] [address] [address] [place] [address] Dermatology 07/14/21 Erica Farrell APRN CORRECTIONAL FACILITY PSYCHIATRIST [address] [place] [address] Nurse Practitioner Cardiovascular Disease 09/09/21 Rich Barrett MD [address] 244845 Physician Ophthalmology 01/21/22 Neil Kent MD 500 [place], [place] 231585 Dermatology 02/24/22 Diana Desir, [facility] [address] [place], [place] 742656 Assigned MTM Pharmacist 04/07/22 Livan Sharif MD [address], [facility]00 [place] 9[address]15 Cardiovascular Disease 05/14/22 Catherine Cm MD [address] [facility]00 [place] 0[address]15 Cardiovascular Disease 07/21/22 Valery Veronica, PA-C [address] [place] [address] 803775 Physician Crawler Crane Operator Dermatology 07/21/22 Catherine Cm MD [address] [place], [place] 726595 Assigned Heart and Vascular Provider 07/24/22 11/05/22 Brea Quinn APRN CORRECTIONAL FACILITY PSYCHIATRIST 500 [place] [address] Nurse Practitioner Dermatology 09/21/22 Brea Quinn APRN CORRECTIONAL FACILITY PSYCHIATRIST [address] [place] [address] 936587 [phone] Assigned Surgical Provider 10/09/22 [place] [address] [address] [facility] [address] [place] [address] Assigned Musculoskeletal Provider 10/09/22 Livan Sharif MD [address], [facility] [address] [place] [address] Assigned Heart and Vascular Provider 11/06/22 11/12/22 Catherine Cm MD [address] [facility]00 [place] [address] Assigned Heart and Vascular Provider 11/13/22 05/27/23 Sydnie Martinez RN Personal Advocate & Liaison (PAL) Family Medicine 03/28/23 07/31/23 Alfonso Renteria MD 5775 [facility] 200 [place], [place] 292426 Assigned Neuroscience Provider 04/02/23 Cheng Todd PA-C [address] [place] [address] [id number] Assigned PCP 04/30/23 07/15/23 Radha Lomeli APRN CORRECTIONAL FACILITY PSYCHIATRIST [address] [place] [address] Assigned Heart and Vascular Provider 05/28/23 Jelena David OD [address] [facility] [place] [address] MD Ophthalmology 06/15/23 Pao Joseph, RN Personal Advocate & Liaison (PAL) Nurse 08/01/23 11/07/23 Esha Grimm PA-C [address] [place] [address]169[address] Assigned PCP 07/16/23 Valery Veronica PA-C [address] [place] [address] 824955 Physician Crawler Crane Operator Dermatology 09/19/23 Rey Tay MD [address] [place] [address] [id number] MD Gastroenterology 09/20/23 Rocky Zepeda DO [address] [place] [address] 804815 Physician Gastroenterology 09/20/23 Philip Dumont MD [address] [place] [address] 115135 Physician Ophthalmology 09/22/23 Meredith Carrera PA-C [address] [place] [address] 217485 Assigned Gastroenterology Provider 11/01/23 Neil Kent MD [address] 157770 Dermatology 11/02/23 [place] [address] [place] [address] Neurological Surgery 12/26/23 Audrey Waite PA-C 500 [place], [place] 707[address] Physician Crawler Crane Operator Dermatology 02/28/24 documented as of this encounter
--- OUTSIDE RECORDS SUMMARY | 2024-03-23 16:02 | XMS_ITS | Encounter Summary ---
Author Organization [facility] Address [address] [place] [address] Care Team Providers Care Director Data Management Name Role Phone Lita Oseguera Unavailable Unavailable Marija Edgar APRN HOME VISITOR HOME BASE HEAD START Primary Care Provider + Marija Edgar APRN HOME VISITOR HOME BASE HEAD START Unavailable [phone] Keisha Dotson MD Unavailable Diana Desir [facility] Unavailable [phone] Rain Galaviz PA-C Unavailable [phone] Tavia Wyatt MD Unavailable Unavailable Erica Farrell APRN HOME VISITOR HOME BASE HEAD START Unavailable Rich Barrett MD Unavailable [phone] Neil Kent MD Unavailable Roney Story DPM Unavailable [phone] Diana Desir [facility] Unavailable [phone] Jelena David OD Unavailable Livan Sharif MD Unavailable Livan Sharif MD Unavailable Catherine Cm MD Unavailable + Valery Veronica PA-C Unavailable [phone] Catherine Cm MD Unavailable + Johnny Murillo MD Unavailable [phone] Brea Quinn [place] HOME VISITOR HOME BASE HEAD START Unavailable [phone] Brea Quinn [place] HOME VISITOR HOME BASE HEAD START Unavailable [phone] Jose Francisco Johnson MD Unavailable Livan Sharif MD Unavailable Catherine Cm MD Unavailable + Sydnie Martinez RN Unavailable Unavailable Alfonso Renteria MD Unavailable Esha Grimm PA-C Primary Care Provider [phone] Cheng Todd PA-C Unavailable Radha Lomeli [place] HOME VISITOR HOME BASE HEAD START Unavailable [phone] Jelena David Radha OD Unavailable Pao Joseph RN Unavailable Unavailable Esha Grimm PA-C Unavailable [phone] Valery Veronica PA-C Unavailable [phone] Rey Tay MD Unavailable Rocky Zepeda DO Unavailable Philip Dumont MD Unavailable [phone] Meredith Carrera PA-C Unavailable [phone] Neil Kent MD Unavailable Juan Pablo Emmanuel MD Unavailable Audrey Waite PA-C Unavailable [phone] Encounter Details Date Type Department Care Team (Late st Contact Info) Description 07/02/[address] [address] Thang Diana T, [facility] 30[address] [place] [address] Social History Tobacco Use Types Packs/Day Years [...] often do you attend jehovah's witness or yazidi serv ices? Never 09/22/2021 Do [...] points; Administer PHQ-9 if positive 1 05/[facility]/2022 [facility] - [facility] [...] a group home (including now)? No 09/22/2021 [place] Depression Scale Answer Date Recorded [place] Depression Score 5 01/14/2021 Last EPDS Self [...] Coronavirus/COVID-19? 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 documented as of this encounter Plan of Treatment Upcoming Encounters Date Type Department Care Team (Late st Contact Info) Description 03/26/2024 11:20 AM CDT Office Visit [facility] Spine and Neurosurgery [address] [place] [address] [address] [place] [address] Ebony Cid, [place] [facility] 500 [place] [address] 03/27/2024 11:00 AM CDT Office Visit [facility] [address] [facility] [address] [place] [phone] Jelena David, [address] [facility] [place] [address] 03/29/2024 3:30 PM CDT Therapy Visit [address] 160 [place] [address] Ingris Thompson, PT [facility] [address] [place] [address] 709285 04/05/2024 2:10 PM CDT Therapy Visit [address] 160 [place] [phone] Ingris Thompson, PT [facility] [address] [place] [address] 586115 04/19/2024 2:45 PM CDT Office Visit [address] [phone] Audrey Waite PA-C [address], [facility] 603 [place], [place] 047535 05/08/2024 1:30 PM CDT Office Visit [facility] [address] [place] [address] Lauren Claudio PA-C [address] [place] [address] Esha Grimm PA-C [address] [place] [address] 06/21/2024 2:00 PM PRINTING SHOP SUPERVISOR Office Visit [facility] Neurology Clinics - [address], [address] [place] [address] [place] [address] [place], [place] [phone] Johnny Penn MD 6545 [place], [place] 345395 documented as of this encounter Visit Diagnoses [...] as of this encounter Care Teams Director Data Management Relationship Specialty Start Date End Date Marija Edgar APRN HOME VISITOR HOME BASE HEAD START PCP - General Nurse Practitioner 04/30/20 04/14/23 Esha Grimm PA-C [address] [place] [address]487[address] PCP - General Family Medicine 05/04/23 Lita Oseguera Personal Advocate & Liaison (PAL) 02/28/20 03/27/23 Marija Edgar APRN HOME VISITOR HOME BASE HEAD START Assigned PCP 06/08/20 04/29/23 Keisha Dotson MD 9[address] [place], [place] 143125 Assigned Neuroscience Provider 06/04/20 04/01/23 Diana Desir, [facility] 30[address] [place] [address] Pharmacist Pharmacist 04/17/21 Rain Galaviz PA-C [address] [place] [address] [place] [address] Physician Care Asst Dermatology 04/28/21 Tavia Wyatt MD [address] [place] [address] [place] [address] Dermatology 07/14/21 Erica Farrell APRN HOME VISITOR HOME BASE HEAD START [address] [place] [address] Nurse Practitioner Cardiovascular Disease 09/09/21 Rich Barrett MD 516 [facility], [address] 183995 Physician Ophthalmology 01/21/22 Neil Kent MD 500 [place] [address] Dermatology 02/24/22 Roney Story DPM [address] [facility] [address] [place] [address] Assigned Musculoskeletal Provider 03/20/22 08/13/22 [facility] [address], [place] 655076 Assigned MTM Pharmacist 04/07/22 Jelena David OD 3305 [facility] [place] [address] Assigned Surgical Provider 05/08/22 10/08/22 Livan Sharif MD [address] [place] [address] Cardiovascular Disease 05/14/22 Livan Sharif MD [address], [address] [place] [address] Assigned Heart and Vascular Provider 06/12/22 07/23/22 Catherine Cm MD [address] [place] [address] Cardiovascular Disease 07/21/22 Valery Veronica, PAUcheC [address] [place] [address] Physician Care Asst Dermatology 07/21/22 Catherine Cm MD [address] [facility] [address] [place] [address] Assigned Heart and Vascular Provider 07/24/22 11/05/22 Johnny Murillo MD [address] [place] [address] Assigned Musculoskeletal Provider 08/14/22 10/08/22 Brea Quinn APRN HOME VISITOR HOME BASE HEAD START [address] [place] [address] 077195 Nurse Practitioner Dermatology 09/21/22 Brea Quinn APRN HOME VISITOR HOME BASE HEAD START [address] [place] [address] [place] [address] Assigned Surgical Provider 10/09/22 [place] [address] [place] [address] 312067 Assigned Musculoskeletal Provider 10/09/22 Livan Sharif MD [address], [address] [place] [address] Assigned Heart and Vascular Provider 11/06/22 11/12/22 Catherine Cm MD [address] [place] [address] Assigned Heart and Vascular Provider 11/13/22 05/27/23 Sydnie Martinez RN Personal Advocate & Liaison (PAL) Family Medicine 03/28/23 07/31/23 Alfonso Renteria MD 5775 [facility] [address] [place] [address] Assigned Neuroscience Provider 04/02/23 Cheng Todd PA-C [address] [place] [address] [id number] Assigned PCP 04/30/23 07/15/23 Radha Lomeli APRN HOME VISITOR HOME BASE HEAD START [address] [place] [address] Assigned Heart and Vascular Provider 05/28/23 Jelena David OD [address] [facility] [place] [address] Ophthalmology 06/15/23 Pao Joseph RN Personal Advocate & Liaison (PAL) Nurse 08/01/23 11/07/23 Esha Grimm PA-C [address] [place] [phone] Assigned PCP 07/16/23 Valery Veronica PA-C [address] [place], [place] 644835 Physician Care Asst Dermatology 09/19/23 Rey Tay MD 909 [place] [address] Gastroenterology 09/20/23 Rocky Zepeda DO 500 [place] [address] Physician Gastroenterology 09/20/23 Philip Dumont MD [address] [place] [address] Physician Ophthalmology 09/22/23 Meredith Carrera PA-C 9 [place] [address] Assigned Gastroenterology Provider 11/01/23 Neil Kent MD [address] [address] Dermatology 11/02/23 [place] [address] [place] [address] [address] Neurological Surgery 12/26/23 Audrey Waite PA-C 500 [place] [address] Physician Care Asst Dermatology 02/28/24 documented as of this encounter
--- OUTSIDE RECORDS SUMMARY | 2024-03-23 16:03 | XMS_ITS | Encounter Summary ---
Author Organization [facility] Address [address] [place] [address] Care Team Providers Care Beverage Server Name Role Phone Lita Oseguera Unavailable Unavailable Marija Edgar APRN BARGEMAN Primary Care Provider + Marija Edgar APRN BARGEMAN Unavailable [phone] Keisha Dotson MD Unavailable [phone] Galo Burrell MD Unavailable Unavailable Diana Desir [facility] Unavailable [phone] Rain Galaviz PA-C Unavailable Summer Lara MD Unavailable [phone] Tavia Wyatt MD Unavailable Unavailable Johnny Murillo MD Unavailable Erica Farrell APRN BARGEMAN Unavailable Tavia Wyatt MD Unavailable Unavailable Diana Desir [facility] Unavailable [phone] Rich Barrett MD Unavailable [phone] Neil Kent MD Unavailable Roney Story DPM Unavailable [phone] Erica Farrell APRN BARGEMAN Unavailable Diana Desir [facility] Unavailable FrankieJelenae OD Unavailable Galo Burrell MD Unavailable Unavailable Livan Sharif MD Unavailable Livan Sharif MD Unavailable IsCatherine hobbs MD Unavailable + Valery Veronica PA-C Unavailable [phone] IsCatherine hobbs MD Unavailable + Johnny Murillo MD Unavailable [phone] Brea Quinn DIRECTOR E LEARNING BARGEMAN Unavailable [phone] Brea Quinn DIRECTOR E LEARNING BARGEMAN Unavailable [phone] Jose Francisco Johnson MD Unavailable Livan Sharif MD Unavailable + IsraynaCatherine boothe MD Unavailable + Sydnie Martinez RN Unavailable Unavailable Alfonso Renteria MD Unavailable Esha Grimm PA-C Primary Care Provider Cheng Todd PA-C Unavailable Radha Lomeli DIRECTOR E LEARNING BARGEMAN Unavailable [phone] Jelena David OD Unavailable Pao Joseph RN Unavailable Unavailable Esha Grimm PA-C Unavailable [phone] Valery Veronica PA-C Unavailable [phone] Rey Tay MD Unavailable Rocky Zepeda DO Unavailable Philip Dumont MD Unavailable [phone] Meredith Carrera PA-C Unavailable [phone] Neil Kent MD Unavailable Juan Pablo Emmanuel MD Unavailable [phone] Audrey Waite PA-C Unavailable [phone] Encounter Details Date Type Department Care Team (Late st Contact Info) Description 03/09/2022 MyC Medical Advice [address] [address] Abby Dye Social History Tobacco [...] How often do you attend hinduism or roman catholic serv ices? Never 09/22/2021 [...] Answer Date Recorded PHQ-2 Score 2 12/18/2021 [facility] - [...] a care home (including now)? No 09/22/2021 Haskell Depression Scale Answer Date Recorded Haskell Depression Score 5 01/14/2021 Last EPDS Self [...] [facility] Spine and Neurosurgery [address] [facility] [address] [place] [address] Ebony Cid, DIRECTOR E LEARNING [facility] 500 [place], [place] [address] 03/27/2024 11:00 AM CDT Office Visit [facility] [place] [address] [facility] [address] [place] [phone] Jelena David, [address] [facility] [place] [address] 03/29/2024 3:30 PM CDT Therapy Visit [facility] [address] [facility] [address] [place] [phone] Ingris Thompson, PT [facility] 516 [facility] 106 [place] [address] 04/05/2024 2:10 PM CDT Therapy Visit [facility] [address] [facility] [address] [place] [phone] Ingris Thompson, PT [facility] 516 [facility] 106 [place], [place] [address] 04/19/2024 2:45 PM CDT Office Visit [facility] 830 [place] [phone] Audrey Waite PA-C [address] [facility] [address], [facility] 603 [place], [place] [address] 05/08/2024 1:30 PM CDT Office Visit [facility] [address] [place] [phone] Lauren Claudio PA-C [address] [place], [place] [phone] Esha Grimm PA-C [address] [place] [address] 06/21/2024 2:00 PM MAIL MESSENGER CONTRACTOR Office Visit [facility] Neurology Clinics - [address], [address] [place] [address] [place] [address] [place] [id number] Johnny Penn MD 6591 [place], [place] [phone] documented as of this encounter Visit Diagnoses Not on filedocumented in this encounter Additional Health Concerns Infection Onset Date Last Indicated Resolved Time Rule Out COVID-19 04/26/2022 04/26/2022 04/26/2022 6:47 AM CDT Rule Out COVID-19 05/17/2022 05/17/2022 05/17/2022 10:20 PM MAIL MESSENGER CONTRACTOR Rule Out COVID-19 06/09/2022 06/09/2022 06/09/2022 9:35 AM MAIL MESSENGER CONTRACTOR COVID-19 06/09/2022 06/09/2022 06/30/2022 11:4 1 PM MAIL MESSENGER CONTRACTOR Rule Out COVID-19 11/10/2022 11/10/2022 11/11/2022 12:17 PM CDT Rule Out COVID-19 03/07/2023 03/07/2023 03/07/2023 1:20 PM CDT Rule Out COVID-19 12/26/2023 12/26/2023 12/26/2023 9:50 AM CDT Assessment Noted Time PHQ-9 Depression Total Score: 2 12/19/19 2:50 PM CDT documented as of this encounter Care Teams Beverage Server Relationship Specialty Start Date End Date Marija Edgar APRN BARGEMAN PCP - General Nurse Practitioner 04/30/20 04/14/23 Esha Grimm PA-C [address] [place] [phone] PCP - General Family Medicine 05/04/23 Lita Oseguera Personal Advocate & Liaison (PAL) 02/28/20 03/27/23 Marija Edgar APRN BARGEMAN Assigned PCP 06/08/20 04/29/23 Keisha Dotson MD 909 [place] [address] Assigned Neuroscience Provider 06/04/20 04/01/23 Galo Burrell MD Assigned Heart and Vascular Provider 10/05/20 04/02/22 Diana Desir, [facility] 3033 [place] [address] Pharmacist Pharmacist 04/17/21 Rain Galaviz PA-C [address] [place] [address] [place] [address] Physician Brick Setter Operator Dermatology 04/28/21 Summer Lara MD [address] [facility] [place] [address] Assigned OBGYN Provider 05/31/21 2 Tavia Wyatt MD [address] [place] [address] Dermatology 07/14/21 Johnny Murillo MD [address] [facility] [address] [place] [address] Assigned Musculoskeletal Provider 08/30/21 03/17/22 Erica Farrell APRN BARGEMAN [address] [facility] [address] [place] [address] Nurse Practitioner Cardiovascular Disease 09/09/21 Tavia Wyatt MD Assigned Surgical Provider 11/29/21 05/07/22 Diana Desir, [facility] [address] [place] [address] Assigned MTM Pharmacist 01/02/22 Rich Barrett MD 6 [facility], [address] [place] [address] Physician Ophthalmology 01/21/22 Neil Kent MD 500 [place] [address] Dermatology 02/24/22 Roney Story DPM [address] [facility] [address] [place] [address] Assigned Musculoskeletal Provider 03/20/22 08/13/22 Erica Farrell APRN BARGEMAN 1700 [place] [address] Assigned Heart and Vascular Provider 04/03/22 04/16/22 [facility] 3033 [place] [address] Assigned MTM Pharmacist 04/07/22 Jelena David OD [address] [facility] [place] [address] Assigned Surgical Provider 05/08/22 10/08/22 Galo Burrell MD Assigned Heart and Vascular Provider 04/17/22 06/11/22 Livan Sharif MD [address] [place] [address] Cardiovascular Disease 05/14/22 Livan Sharif MD [address] [place] 782545 Assigned Heart and Vascular Provider 06/12/22 07/23/22 Catherine Cm MD [address] [place] [address] [place] [address] Cardiovascular Disease 07/21/22 Valery Veronica, PA-C [address] [place] [address] 702985 Physician Brick Setter Operator Dermatology 07/21/22 Catherine Cm MD [address] [place] 06[address]45 Assigned Heart and Vascular Provider 07/24/22 11/05/22 Johnny Murillo MD [address] [place] [address] Assigned Musculoskeletal Provider 08/14/22 10/08/22 Brea Quinn APRN BARGEMAN [address] [place] [address] 974655 Nurse Practitioner Dermatology 09/21/22 Brea Quinn APRN BARGEMAN [address] [place] [address] 000142 Assigned Surgical Provider 10/09/22 [place] [address] [place] [address] 484747 Assigned Musculoskeletal Provider 10/09/22 Livan Sharif MD [address] [place] [address] [place] 135225 Assigned Heart and Vascular Provider 11/06/22 11/12/22 Catherine Cm MD [address] [place] [address] Assigned Heart and Vascular Provider 11/13/22 05/27/23 Sydnie Martinez RN Personal Advocate & Liaison (PAL) Family Medicine 03/28/23 07/31/23 Alfonso Renteria MD [address] [facility] [address] 200 [place], [place] 0[address]606 Assigned Neuroscience Provider 04/02/23 Cheng Todd PA-C [address] [place] [address] [id number] Assigned PCP 04/30/23 07/15/23 Radha Lomeli APRN BARGEMAN [address] [place] 127955 Assigned Heart and Vascular Provider 05/28/23 Jelena David OD [address] [facility] [place] [address] Ophthalmology 06/15/23 Pao Joseph, VJ Personal Advocate & Liaison (PAL) Nurse 08/01/23 11/07/23 Esha Grimm PA-C [address] [place] [phone] Assigned PCP 07/16/23 Valery Veronica PA-C 909 [place], [place] 156805 Physician Brick Setter Operator Dermatology 09/19/23 Rey Tay MD 909 [place], [place] 450345 MD Gastroenterology 09/20/23 Rocky Zepeda DO 500 [place] [address] Physician Gastroenterology 09/20/23 Philip Dumont MD 516 [place], [place] 298465 Physician Ophthalmology 09/22/23 Meredith Carrera PA-C 9 [place] [address] Assigned Gastroenterology Provider 11/01/23 Neil Kent MD [address] 400230 Dermatology 11/02/23 [place] [address] [address] [facility] [place], [place] 830[address] Neurological Surgery 12/26/23 Audrey Waite PA-C 500 [place] [address] Physician Brick Setter Operator Dermatology 02/28/24 documented as of this encounter
--- OUTSIDE RECORDS SUMMARY | 2024-03-23 16:03 | XMS_ITS | Encounter Summary ---
Author Organization [facility] Address [address] [place] [address] Care Team Providers Care Specialist Icu Name Role Phone Lita sOeguera Unavailable Unavailable Marija Edgar APRN RETAIL AREA MANAGER Primary Care Provider + Marija Edgar APRN RETAIL AREA MANAGER Unavailable [phone] Keisha Dotson MD Unavailable [phone] Diana Desir [facility] Unavailable [phone] Rain Galaviz PA-C Unavailable Tavia Wyatt MD Unavailable Unavailable Erica Farrell APRN RETAIL AREA MANAGER Unavailable Tavia Wyatt MD Unavailable Unavailable Rich Barrett MD Unavailable [phone] Neil Kent MD Unavailable Roney Story DPM Unavailable [phone] Erica Farrell APRN RETAIL AREA MANAGER Unavailable Diana Desir [facility] Unavailable [phone] Jelena David OD Unavailable Galo Burrell MD Unavailable Unavailable Livan Sharif MD Unavailable Livan Sharif MD Unavailable + Catherine Cm MD Unavailable + Valery Veronica PA-C Unavailable [phone] Catherine Cm MD Unavailable + Johnny Murillo MD Unavailable [phone] Brea Quinn MERINGUER RETAIL AREA MANAGER Unavailable [phone] Brea Quinn MERINGUER RETAIL AREA MANAGER Unavailable [phone] Jose Francisco Johnson MD Unavailable Livan Sharif MD Unavailable + IsmaelCatherine boothe MD Unavailable + Sydnie Martinez RN Unavailable Unavailable Alfonso Renteria MD Unavailable Esha Grimm PA-C Primary Care Provider Cheng Todd PA-C Unavailable Radha Lomeli APRN RETAIL AREA MANAGER Unavailable [phone] Jelena David OD Unavailable Pao Joseph RN Unavailable Unavailable Esha Grimm PA-C Unavailable [phone] Valery Veronica PA-C Unavailable [phone] Rey Tay MD Unavailable Rocky Zepeda DO Unavailable Philip Dumont MD Unavailable [phone] Meredith Carrera PA-C Unavailable [phone] Neil Kent MD Unavailable Juan Pablo Emmanuel MD Unavailable Audrey Waite PA-C Unavailable [phone] Encounter Details Date Type Department Care Team (Late st Contact Info) Description 04/07/2022 MyC Medical Advice [address] [address] Diana Desir, [facility] 3033 [place] [address] Social History Tobacco Use Types Packs/Day Years [...] often do you attend jehovah's witness or taoist serv ices? Never 09/22/2021 Do [...] Answer Date Recorded PHQ-2 Score 2 12/18/2021 [facility] of Occupat ional [facility] - Occupational Stress Questionnaire Answer Date Recorded [...] in a fdc (including now)? No 09/22/2021 [place] Depression Scale Answer Date Recorded [place] Depression Score 5 01/14/2021 Last EPDS [...] Upcoming Encounters Date Type Department Care Team ([facility] st Contact Info) Description 03/26/2024 11:20 AM CDT Office Visit [facility] Spine and Neurosurgery [address] [facility] [address] [place] [address] Ebony Cid, [facility] 500 [place] [address] 03/27/2024 11:00 AM CDT Office Visit [facility] [address] [facility] [address] [place] [phone] Jelena David, [place] [address] [facility] [place] [address] 03/29/2024 3:30 PM CDT Therapy Visit [facility] [address] [place] [address] [address] [place] [phone] Ingris Thompson, PT [facility] 516 [facility] 106 [place] [address] 04/05/2024 2:10 PM CDT Therapy Visit [facility] [address] [place] [address] [address] [place] [phone] Ingris Thompson, PT [facility] [address] [facility] [address] [place] [address] 04/19/2024 2:45 PM CDT Office Visit [facility] 830 [place] [phone] Audrey Waite PA-C [address], [facility] 603 [place], [place] 8[address] 05/08/2024 1:30 PM CDT Office Visit [facility] [address] [place] [phone] Lauren Claudio PA-C [address] [place], [place] [phone] Esha Grimm PA-C [address] [place] [phone] 06/21/2024 2:00 PM MEAT TRIMMER Office Visit [facility] Neurology Clinics - [address], [address] [place] [address] [place] [address] [place], [place] 483[address] Johnny Penn MD [address] [place] [address] documented as of this encounter Visit Diagnoses Not on filedocumented in this encounter Additional Health Concerns Infection Onset Date Last Indicated Resolved Time Rule Out COVID-19 04/26/2022 04/26/2022 04/26/2022 6:47 AM CDT Rule Out COVID-19 05/17/2022 05/17/2022 05/17/2022 10:20 PM MEAT TRIMMER Rule Out COVID-19 06/09/2022 06/09/2022 06/09/2022 9:35 AM MEAT TRIMMER COVID-19 06/09/2022 06/09/2022 06/30/2022 11:4 1 PM MEAT TRIMMER Rule Out COVID-19 11/10/2022 11/10/2022 11/11/2022 12:17 PM CDT Rule Out COVID-19 03/07/2023 03/07/2023 03/07/2023 1:20 PM CDT Rule Out COVID-19 12/26/2023 12/26/2023 12/26/2023 9:50 AM CDT Assessment Noted Time PHQ-9 Depression Total Score: 2 12/19/19 2:50 PM CDT documented as of this encounter Care Teams Specialist Icu Relationship Specialty Start Date End Date Marija Edgar APRN RETAIL AREA MANAGER PCP - General Nurse Practitioner 04/30/20 04/14/23 Esha Grimm PA-C [address] [place] [phone] PCP - General Family Medicine 05/04/23 Lita Oseguera Personal Advocate & Liaison (PAL) 02/28/20 03/27/23 Marija Edgar APRN RETAIL AREA MANAGER Assigned PCP 06/08/20 04/29/23 Keisha Dotson MD 909 [place], [place] 0[address]755 Assigned Neuroscience Provider 06/04/20 04/01/23 Diana Desir [facility] 3033 [place], [place] 990546 Pharmacist Pharmacist 04/17/21 Rain Galaviz PA-C [address] [place] [address] [address] [place] [address] Physician Prototype Technician Dermatology 04/28/21 Tavia Wyatt MD [address] [place] [address] [place] [address] Dermatology 07/14/21 Erica Farrell APRN RETAIL AREA MANAGER [address] [place] [phone] [place] [address] Nurse Practitioner Cardiovascular Disease 09/09/21 Tavia Wyatt MD Assigned Surgical Provider 11/29/21 05/07/22 Rich Barrett MD 516 [facility] 9A [place] [address] Physician Ophthalmology 01/21/22 Neil Kent MD 500 [place] [address] Dermatology 02/24/22 [place] [address] [facility] 300 [place] [address] Assigned Musculoskeletal Provider 03/20/22 08/13/22 Erica Farrell APRN RETAIL AREA MANAGER 1700 [place] [address] Assigned Heart and Vascular Provider 04/03/22 04/16/22 Diana Desir, [facility] 3033 [place] [address] Assigned MTM Pharmacist 04/07/22 Jelena David OD [address] [facility] [place] [address] Assigned Surgical Provider 05/08/22 10/08/22 Galo Burrell MD Assigned Heart and Vascular Provider 04/17/22 06/11/22 Livan Sharif MD [address] [place] 57[address] Cardiovascular Disease 05/14/22 Livan Sharif MD [address], [address] [place] [address] Assigned Heart and Vascular Provider 06/12/22 07/23/22 Catherine Cm MD [address] [place] 0795[address] Cardiovascular Disease 07/21/22 Valery Veronica, PA-C 909 [place] [address] Physician Prototype Technician Dermatology 07/21/22 Catherine Cm MD [address] [place] 516575 Assigned Heart and Vascular Provider 07/24/22 11/05/22 Johnny Murillo MD [address] [facility] [address] [place] [address] Assigned Musculoskeletal Provider 08/14/22 10/08/22 Brea Quinn APRN RETAIL AREA MANAGER 500 [place], [place] 578935 Nurse Practitioner Dermatology 09/21/22 Brea Quinn APRN RETAIL AREA MANAGER 6401 [place], [place] 442912 Assigned Surgical Provider 10/09/22 [place] [address] [facility] 300 [place], [place] 927917 Assigned Musculoskeletal Provider 10/09/22 Livan Sharif MD [address] [facility] [address] [place], [place] 139415 Assigned Heart and Vascular Provider 11/06/22 11/12/22 Catherine Cm MD [address] [facility]00 [place] [address] Assigned Heart and Vascular Provider 11/13/22 05/27/23 Sydnie Martinez RN Personal Advocate & Liaison (PAL) Family Medicine 03/28/23 07/31/23 Alfonso Renteria MD 5775 [facility] 200 [place], [place] 310196 Assigned Neuroscience Provider 04/02/23 Cheng Todd PA-C [address] [place] [address] Assigned PCP 04/30/23 07/15/23 Radha Lomeli APRN RETAIL AREA MANAGER 6405 [facility] [address] [place], [place] 370745 Assigned Heart and Vascular Provider 05/28/23 Jelena David OD [address] [facility] [place] [address] MD Ophthalmology 06/15/23 Pao Joseph, VJ Personal Advocate & Liaison (PAL) Nurse 08/01/23 11/07/23 Esha Grimm PA-C [address] [place] [phone] Assigned PCP 07/16/23 Valery Veronica PA-C [address] [place] [address] 406505 Physician Prototype Technician Dermatology 09/19/23 Rey Tay MD [address] [place] [address] 883505 Gastroenterology 09/20/23 Rocky Zepeda DO [address] [place] [address] 442285 Physician Gastroenterology 09/20/23 Philip Dumont MD [address] [place] [address] 935895 Physician Ophthalmology 09/22/23 Meredith Carrera PA-C [address] [place] [address] Assigned Gastroenterology Provider 11/01/23 Neil Kent MD [address] [address] Dermatology 11/02/23 [place] [address] [place] [address] Neurological Surgery 12/26/23 Audrey Waite, PAUcheC 500 [place] [address] Physician Prototype Technician Dermatology 02/28/24 documented as of this encounter
--- OUTSIDE RECORDS SUMMARY | 2024-03-23 16:03 | XMS_ITS | Encounter Summary ---
Author Organization [facility] Address [address] [place] [address] Care Team Providers Care Electronic Die Maker Name Role Phone Lita Oseguera Unavailable Unavailable Marija Edgar APRN DIGITAL COMMUNICATIONS MANAGER Primary Care Provider + Marija Edgar APRN DIGITAL COMMUNICATIONS MANAGER Unavailable [phone] Keisha Dotson MD Unavailable [phone] Galo Burrell MD Unavailable Unavailable Diana Desir [facility] Unavailable [phone] Rain Galaviz PA-C Unavailable Summer Lara MD Unavailable [phone] Tavia Wyatt MD Unavailable Unavailable Johnny Murillo MD Unavailable [phone] Erica Farrell APRN DIGITAL COMMUNICATIONS MANAGER Unavailable Tavia Wyatt MD Unavailable Unavailable Diana Desir [facility] Unavailable [phone] Rcih Barrett MD Unavailable [phone] Neil Kent MD Unavailable Roney Story DPM Unavailable [phone] Erica Farrell APRN DIGITAL COMMUNICATIONS MANAGER Unavailable Diana Desir [facility] Unavailable FrankieJelenae OD Unavailable Galo Burrell MD Unavailable Unavailable Livan Sharif MD Unavailable Livan Sharif MD Unavailable IsCatherine hobbs MD Unavailable + Valery Veronica PA-C Unavailable [phone] IsCatherine hobbs MD Unavailable + Johnny Murillo MD Unavailable [phone] Brea Quinn [employer]AP [employer]OVERER DIGITAL COMMUNICATIONS MANAGER Unavailable [phone] Brea Quinn [employer] DIGITAL COMMUNICATIONS MANAGER Unavailable [phone] Jose Francisco Johnson MD Unavailable Livan Sharif MD Unavailable + IsraynaCatherine boothe MD Unavailable + Sydnie Martinez RN Unavailable Unavailable Alfonso Renteria MD Unavailable Esha Grmim PA-C Primary Care Provider Cheng Todd PA-C Unavailable Radha Lomeli [employer]ER DIGITAL COMMUNICATIONS MANAGER Unavailable [phone] Jelena David OD Unavailable Pao Joseph RN Unavailable Unavailable Esha Grimm PA-C Unavailable [phone] Valery Veronica PA-C Unavailable [phone] Rey Tay MD Unavailable Rocky Zepeda DO Unavailable Philip Dumont MD Unavailable [phone] Meredith Carrera PA-C Unavailable [phone] Neil Kent MD Unavailable Juan Pablo Emmanuel MD Unavailable [phone] Audrey Waite PA-C Unavailable [phone] Encounter Details Date Type Department Care Team (Late st Contact Info) Description 12/03/2021 MyC Medical Advice [address] [address] Debbie Hdez MA Social History [...] How often do you attend confucianist or restorationist serv ices? Never 09/22/2021 Do [...] Date Recorded PHQ-2 Score 2 09/22/2021 [facility] of Occupat [...] in a fdc (including now)? No 09/22/2021 [place] Depression Scale Answer Date Recorded [place] [...] Description 03/26/2024 11:20 AM CDT Office Visit [facility] Spine and Neurosurgery [address] [place] [address] 100 [place] [address] Ebony Cid, BURLAP ROLL COVERER [facility] 500 [place], [place] 472145 03/27/2024 11:00 AM CDT Office Visit [facility] [place] [address] [facility] [address] [place] [phone] Jelena David, 3305 [facility] [place] [address] 03/29/2024 3:30 PM CDT Therapy Visit [facility] [address] [place] [address] [address] [place] [phone] Ingris Thompson, PT [facility] 516 [facility] 106 [place] [address] 04/05/2024 2:10 PM CDT Therapy Visit [facility] [address] [place] [address] [address] [place] [phone] Ingris Thompson, PT [facility] [address] [facility] 106 [place], [place] [address]85 04/19/2024 2:45 PM CDT Office Visit [facility] 830 [place] [phone] Audrey Waite PA-C [address], [facility] 603 [place], [place] [address] 05/08/2024 1:30 PM CDT Office Visit [facility] [address] [place] [phone] Lauren Claudio PA-C [address] [place], [place] [phone] Esha Grimm PA-C [address] [place] [address] 06/21/2024 2:00 PM LAB NURSE Office Visit [facility] Neurology Clinics - [address], [address] [place] [phone] [place] [address] RA[address] [place] [address] [phone] Johnny Penn MD 6545 [place] [address] documented as of this encounter Visit Diagnoses Not on filedocumented in this encounter Additional Health Concerns Infection Onset Date Last Indicated Resolved Time Rule Out COVID-19 12/18/2021 12/18/2021 12/19/2021 11:34 AM CDT Rule Out COVID-19 02/24/2022 02/24/2022 02/25/2022 1:08 PM CDT Rule Out COVID-19 04/26/2022 04/26/2022 04/26/2022 6:47 AM CDT Rule Out COVID-19 05/17/2022 05/17/2022 05/17/2022 10:20 PM LAB NURSE Rule Out COVID-19 06/09/2022 06/09/2022 06/09/2022 9:35 AM LAB NURSE COVID-19 06/09/2022 06/09/2022 06/30/2022 11:4 1 PM LAB NURSE Rule Out COVID-19 11/10/2022 11/10/2022 11/11/2022 12:17 PM CDT Rule Out COVID-19 03/07/2023 03/07/2023 03/07/2023 1:20 PM CDT Rule Out COVID-19 12/26/2023 12/26/2023 12/26/2023 9:50 AM CDT Assessment Noted Time PHQ-9 Depression Total Score: 2 04/02/20 10:19 AM CDT documented as of this encounter Care Teams Electronic Die Maker Relationship Specialty Start Date End Date Marija Edgar APRN DIGITAL COMMUNICATIONS MANAGER PCP - General Nurse Practitioner 04/30/20 04/14/23 Esha Grimm PA-C [address] [place] [address] PCP - General Family Medicine 05/04/23 Lita Oseguera Personal Advocate & Liaison (PAL) 02/28/20 03/27/23 Marija Edgar APRN DIGITAL COMMUNICATIONS MANAGER Assigned PCP 06/08/20 04/29/23 Keisha Dotson MD [address] [place] [address] [place] [address] Assigned Neuroscience Provider 06/04/20 04/01/23 Galo Burrell MD Assigned Heart and Vascular Provider 10/05/20 04/02/22 Diana Desir, [facility] 3033 [place] [address] Pharmacist Pharmacist 04/17/21 Rain Galaviz PA-C [address] [place] [address] [place] [address] Physician Protection Consultant Dermatology 04/28/21 Summer Lara MD [address] [place] [address] 876864 Assigned OBGYN Provider 05/31/21 2 Tavia Wyatt MD [address] [place] [address] Dermatology 07/14/21 Johnny Murillo MD [facility] [address] [address] Assigned Musculoskeletal Provider 08/30/21 03/17/22 Erica Farrell APRN DIGITAL COMMUNICATIONS MANAGER 6405 [facility] [address] [place], [place] 47[address] Nurse Practitioner Cardiovascular Disease 09/09/21 Tavia Wyatt MD Assigned Surgical Provider 11/29/21 05/07/22 Diana Desir, [facility] 3033 [place] [address] Assigned MTM Pharmacist 01/02/22 Rich Barrett MD [address] [address] Physician Ophthalmology 01/21/22 Neil Kent MD 500 [place] [address] Dermatology 02/24/22 Roney Story DPM [address] [facility] [address] [place] [address] Assigned Musculoskeletal Provider 03/20/22 08/13/22 Erica Farrell APRN DIGITAL COMMUNICATIONS MANAGER 1700 [place] [address] Assigned Heart and Vascular Provider 04/03/22 04/16/22 Diana Desir, [facility] [address] [place] [address] Assigned MTM Pharmacist 04/07/22 Jelena David OD [address] [facility] [place] [place] [address] Assigned Surgical Provider 05/08/22 10/08/22 Galo Burrell MD Assigned Heart and Vascular Provider 04/17/22 06/11/22 Livan Sharif MD [address] , [facility] [address] [place] 8[address]65 Cardiovascular Disease 05/14/22 Livan Sharif MD [address], [facility] [address] [place] [address] Assigned Heart and Vascular Provider 06/12/22 07/23/22 Catherine Cm MD [address] [facility]00 [place] 886465 Cardiovascular Disease 07/21/22 Valery Veronica, PAUcheC [address] [place] [address] 735585 Physician Protection Consultant Dermatology 07/21/22 Catherine Cm MD [address] [facility]00 [place] 7[address]755 Assigned Heart and Vascular Provider 07/24/22 11/05/22 Johnny Murillo MD [address] [place] [address] 811304 Assigned Musculoskeletal Provider 08/14/22 10/08/22 Brea Quinn APRN DIGITAL COMMUNICATIONS MANAGER [address] [place] [address] 308175 Nurse Practitioner Dermatology 09/21/22 Brea Quinn APRN DIGITAL COMMUNICATIONS MANAGER [address] [place] [address] [place] 800312 Assigned Surgical Provider 10/09/22 [place] [address] RAZO [address] [place] [address] [place] 725057 Assigned Musculoskeletal Provider 10/09/22 Livan Sharif MD [address], [facility] [address] [place] 7[address]35 Assigned Heart and Vascular Provider 11/06/22 11/12/22 Catherine Cm MD [address] [place] 064895 Assigned Heart and Vascular Provider 11/13/22 05/27/23 Sydnie Martinez, RN Personal Advocate & Liaison (PAL) Family Medicine 03/28/23 07/31/23 Alfonso Renteria MD 5775 [facility] 200 [place] [address] Assigned Neuroscience Provider 04/02/23 Cheng Todd PA-C [address] [place] [address] [phone] Assigned PCP 04/30/23 07/15/23 Radha Lomeli APRN DIGITAL COMMUNICATIONS MANAGER [address] [place] [address] Assigned Heart and Vascular Provider 05/28/23 Jelena David OD [address] [facility] [place] [address] Ophthalmology 06/15/23 Pao Joseph, VJ Personal Advocate & Liaison (PAL) Nurse 08/01/23 11/07/23 Esha Grimm PA-C [address] [place] [phone] Assigned PCP 07/16/23 Valery Veronica PA-C 909 [place], [place] 006745 Physician Protection Consultant Dermatology 09/19/23 Rey Tay MD 9 [place] [address] MD Gastroenterology 09/20/23 Rocky Zepeda DO 500 [place], [place] 236905 Physician Gastroenterology 09/20/23 Philip Dumont MD [address] [place] [address] 094505 Physician Ophthalmology 09/22/23 Meredith Carrera PA-C 9 [place], [place] [address]35 Assigned Gastroenterology Provider 11/01/23 Neil Kent MD [address] [address] Dermatology 11/02/23 [place] [address] [place] [address] Neurological Surgery 12/26/23 Audrey Waite PA-C 500 [place], [place] 732705 Physician Protection Consultant Dermatology 02/28/24 documented as of this encounter
--- OUTSIDE RECORDS SUMMARY | 2024-03-23 16:03 | XMS_ITS | Encounter Summary ---
Author Organization [facility] Address [address] [place] [address] Care Team Providers Care Shipping Receiving Manager Name Role Phone Lita Oseguera Unavailable Unavailable Marija Edgar APRN RECYCLING MANAGER Primary Care Provider + Marija Edgar APRN RECYCLING MANAGER Unavailable [phone] Keisha Dotson MD Unavailable [phone] Galo Burrell MD Unavailable Unavailable Diana Desir [facility] Unavailable [phone] Rain Galaviz PA-C Unavailable Summer Lara MD Unavailable [phone] Tavia Wyatt MD Unavailable Unavailable Johnny Murillo MD Unavailable [phone] Erica Farrell APRN RECYCLING MANAGER Unavailable Tavia Wyatt MD Unavailable Unavailable Diana Desir [facility] Unavailable [phone] Rich Barrett MD Unavailable [phone] Neil Kent MD Unavailable Roney Story DPM Unavailable [phone] Erica Farrell APRN RECYCLING MANAGER Unavailable Diana Desir [facility] Unavailable FrankieJelenae OD Unavailable Galo Burrell MD Unavailable Unavailable Livan Sharif MD Unavailable Livan Sharif MD Unavailable IsCatherine hobbs MD Unavailable + Valery Veronica PA-C Unavailable [phone] IsCatherine hobbs MD Unavailable + Johnny Murillo MD Unavailable [phone] Brea Quinn SENIOR INFORMATION SECURITY CONSULTANT RECYCLING MANAGER Unavailable [phone] Brea Quinn SENIOR INFORMATION SECURITY CONSULTANT RECYCLING MANAGER Unavailable [phone] Jose Francisco Johnson MD Unavailable Livan Sharif MD Unavailable + IsraynaCatherine boothe MD Unavailable + Sydnie Martinez RN Unavailable Unavailable Alfonso Renteria MD Unavailable Esha Grimm PA-C Primary Care Provider Cheng Todd PA-C Unavailable Radha Lomeli SENIOR INFORMATION SECURITY CONSULTANT RECYCLING MANAGER Unavailable [phone] Jelena David OD Unavailable Pao Joseph RN Unavailable Unavailable Esha Grimm PA-C Unavailable [phone] Valery Veronica PA-C Unavailable [phone] Rey Tay MD Unavailable Rocky Zepeda DO Unavailable Philip Dumont MD Unavailable [phone] Meredith Carrera PA-C Unavailable [phone] Neil Kent MD Unavailable Juan Pablo Emmanuel MD Unavailable [phone] Audrey Waite PA-C Unavailable [phone] Encounter Details Date Type Department Care Team (Late st Contact Info) Description 01/22/2022 MyC Medical Advice [address] [address] Diana Desir, [facility] 3030 [place] [address] Social History Tobacco Use Types Packs/Day Years [...] How often do you attend scientologist or episcopalian serv ices? Never 09/22/2021 Do [...] Answer Date Recorded PHQ-2 Score 2 12/18/2021 [facility] of Occupat ional Health [...] in a fpc (including now)? No 09/22/2021 [place] Depression Scale Answer Date Recorded [place] Depression Score 5 01/14/2021 Last EPDS Self [...] [facility] [address]47 [facility] [address] [place] [phone] Ebony Cid, [facility] 500 [place] [address] 03/27/2024 11:00 AM CDT Office Visit [facility] [place] [address] [facility] [address] [place] [phone] Jelena David, OD [address] [facility] [place] [address] 03/29/2024 3:30 PM CDT Therapy Visit [facility] [place] [address] [place] [address] [address] [place] [phone] Ingris Thompson, PT [facility] 516 [facility] 106 [place] [address] 04/05/2024 2:10 PM CDT Therapy Visit [facility] [place] [address] [facility] [address] [place] [phone] Ingris Thompson, PT [facility] [address] [facility] [address] [facility] 106 [place], [place] [address] 04/19/2024 2:45 PM CDT Office Visit [facility] 830 [place] [phone] Audrey Waite PA-C 420 [facility] [address], [facility] 603 [place], [place] 484015 05/08/2024 1:30 PM CDT Office Visit [facility] [address] [place] [phone] Lauren Claudio PA-C [address] [place], [place] [phone] Esha Grimm PA-C [address] [place] [phone] 06/21/2024 2:00 PM PURCHASING/RECEIVING Office Visit [facility] [place] [address] [place] [address], [address] [place] [phone] [place] [address] [place] [phone] Johnny Penn MD 6545 [place] [address] documented as of this encounter Visit Diagnoses Not on filedocumented in this encounter Additional Health Concerns Infection Onset Date Last Indicated Resolved Time Rule Out COVID-19 02/24/2022 02/24/2022 02/25/2022 1:08 PM CDT Rule Out COVID-19 04/26/2022 04/26/2022 04/26/2022 6:47 AM CDT Rule Out COVID-19 05/17/2022 05/17/2022 05/17/2022 10:20 PM PURCHASING/RECEIVING Rule Out COVID-19 06/09/2022 06/09/2022 06/09/2022 9:35 AM PURCHASING/RECEIVING COVID-19 06/09/2022 06/09/2022 06/30/2022 11:4 1 PM PURCHASING/RECEIVING Rule Out COVID-19 11/10/2022 11/10/2022 11/11/2022 12:17 PM CDT Rule Out COVID-19 03/07/2023 03/07/2023 03/07/2023 1:20 PM CDT Rule Out COVID-19 12/26/2023 12/26/2023 12/26/2023 9:50 AM CDT Assessment Noted Time PHQ-9 Depression Total Score: 2 12/19/19 2:50 PM CDT documented as of this encounter Care Teams Shipping Receiving Manager Relationship Specialty Start Date End Date Marija Edgar APRN RECYCLING MANAGER PCP - General Nurse Practitioner 04/30/20 04/14/23 Esha Grimm PA-C [address] [place] [address] PCP - General Family Medicine 05/04/23 Lita Oseguera Personal Advocate & Liaison (PAL) 02/28/20 03/27/23 Marija Edgar APRN RECYCLING MANAGER Assigned PCP 06/08/20 04/29/23 Keisha Dotson MD 909 [place] [address] Assigned Neuroscience Provider 06/04/20 04/01/23 Galo Burrell MD Assigned Heart and Vascular Provider 10/05/20 04/02/22 Diana Desir, [facility] 3033 [place] [address] Pharmacist Pharmacist 04/17/21 Rain Galaviz PA-C [address] [place] [address] [place] [address] Physician Technical Sme Dermatology 04/28/21 Summer Lara MD [address] [place], [place] [address] [place] [address] Assigned OBGYN Provider 05/31/21 2 Tavia Wyatt MD [address] [place] [address] Dermatology 07/14/21 Johnny Murillo MD [facility] [address] [address] Assigned Musculoskeletal Provider 08/30/21 03/17/22 Erica Farrell APRN RECYCLING MANAGER 6[address] [facility] [address] [place] [address] Nurse Practitioner Cardiovascular Disease 09/09/21 Tavia Wyatt MD Assigned Surgical Provider 11/29/21 05/07/22 Diana Desir, [facility] 3033 [place] [address] Assigned MTM Pharmacist 01/02/22 Rich Barrett MD 516 [facility] 9A [place] [address] Physician Ophthalmology 01/21/22 Neil Kent MD 500 [place] [address] Dermatology 02/24/22 [place] D[place] [address] [facility] [address] [place] [address] Assigned Musculoskeletal Provider 03/20/22 08/13/22 Erica Farrell APRN RECYCLING MANAGER 1700 [place] [address] Assigned Heart and Vascular Provider 04/03/22 04/16/22 Diana Desir, [facility] [address] [place] [address] Assigned MTM Pharmacist 04/07/22 Jelena David OD [address] [place] [address] Assigned Surgical Provider 05/08/22 10/08/22 Galo Burrell MD Assigned Heart and Vascular Provider 04/17/22 06/11/22 Livan Sharif MD 6405 [facility] [place] , [facility] [address] [place] [address] Cardiovascular Disease 05/14/22 Livan Sharif MD [address] [place] 526525 Assigned Heart and Vascular Provider 06/12/22 07/23/22 Catherine Cm MD [address] [place] [address] [place] 432235 Cardiovascular Disease 07/21/22 Valery Veronica, PA-C [address] [place] [address] 235645 Physician Technical Sme Dermatology 07/21/22 Catherine Cm MD [address] [place] [address] [place] 330235 Assigned Heart and Vascular Provider 07/24/22 11/05/22 Johnny Murillo MD [address] [place] [address] 251774 Assigned Musculoskeletal Provider 08/14/22 10/08/22 Brea Quinn APRN RECYCLING MANAGER [address] [place] [address] 078275 Nurse Practitioner Dermatology 09/21/22 Brea Quinn APRN RECYCLING MANAGER [address] [place] [address] [place] DOE 437192 Assigned Surgical Provider 10/09/22 [place] [address] [facility] [place], [place] [address] Assigned Musculoskeletal Provider 10/09/22 Livan Sharif MD [address] [address], [facility] [address] [place] [address] Assigned Heart and Vascular Provider 11/06/22 11/12/22 Catherine Cm MD [address] [facility] [address] [place] [address] Assigned Heart and Vascular Provider 11/13/22 05/27/23 Sydnie Martinez RN Personal Advocate & Liaison (PAL) Family Medicine 03/28/23 07/31/23 Alfonso Renteria MD 5775 [facility] 200 [place] [address] Assigned Neuroscience Provider 04/02/23 Cheng Todd PA-C [address] [place] [address] [id number] Assigned PCP 04/30/23 07/15/23 Radha Lomeli, ARLENE RECYCLING MANAGER [address] [place] [address] Assigned Heart and Vascular Provider 05/28/23 Jelena David OD [address] [place] [address] Ophthalmology 06/15/23 Pao Joseph, VJ Personal Advocate & Liaison (PAL) Nurse 08/01/23 11/07/23 Esha Grimm PAUcheC [address] [place] [phone] Assigned PCP 07/16/23 Valery Veronica PA-C 909 [place] [address] Physician Technical Sme Dermatology 09/19/23 Rey Tay MD 9 [place] [address] MD Gastroenterology 09/20/23 Rocky Zepeda DO 500 [place], [place] 550[address] Physician Gastroenterology 09/20/23 Philip Dumont MD [address] [place] [address] Physician Ophthalmology 09/22/23 Meredith Carrera PA-C 9 [place] [address] Assigned Gastroenterology Provider 11/01/23 Neil Kent MD [address] [address] Dermatology 11/02/23 [place] [address] [place] [address] Neurological Surgery 12/26/23 Audrey Waite PA-C 500 [place] [address] Physician Technical Sme Dermatology 02/28/24 documented as of this encounter
--- OUTSIDE RECORDS SUMMARY | 2024-03-23 16:03 | XMS_ITS | Encounter Summary ---
Author Organization [facility] Address [address] [place] [address] Care Team Providers Care Joinery Setter Out Name Role Phone Lita Oseguera Unavailable Unavailable Marija Edgar APRN ELECTRICAL ASSISTANT Primary Care Provider + Marija Edgar APRN ELECTRICAL ASSISTANT Unavailable [phone] Keisha Dotson MD Unavailable [phone] Galo Burrell MD Unavailable Unavailable Diana Desir [facility] Unavailable [phone] Rain Galaviz PA-C Unavailable Summer Lara MD Unavailable [phone] Tavia Wyatt MD Unavailable Unavailable Johnny Murillo MD Unavailable Erica Farrell APRN ELECTRICAL ASSISTANT Unavailable Tavia Wyatt MD Unavailable Unavailable Diana Desir [facility] Unavailable [phone] Rich Barrett MD Unavailable [phone] Neil Kent MD Unavailable Roney Story DPM Unavailable [phone] Erica Farrell APRN ELECTRICAL ASSISTANT Unavailable Diana Desir [facility] Unavailable FrankieJelenae OD Unavailable Galo Burrell MD Unavailable Unavailable Livan Sharif MD Unavailable Livan Sharif MD Unavailable IsCatherine hobbs MD Unavailable + Valery Veronica PA-C Unavailable [phone] IsCatherine hobbs MD Unavailable + Johnny Murillo MD Unavailable [phone] Brea Quinn THERAPEUTIC RECREATION DIRECTOR ELECTRICAL ASSISTANT Unavailable [phone] Brea Quinn THERAPEUTIC RECREATION DIRECTOR ELECTRICAL ASSISTANT Unavailable [phone] Jose Francisco Johnson MD Unavailable Livan Sharif MD Unavailable + IsraynaCatherine boothe MD Unavailable + Sydnie Martinez RN Unavailable Unavailable Alfonso Renteria MD Unavailable Esha Grimm PA-C Primary Care Provider Cheng Todd PA-C Unavailable Radha Lomeli THERAPEUTIC RECREATION DIRECTOR ELECTRICAL ASSISTANT Unavailable [phone] Jelena David OD Unavailable [phone] Pao Joseph RN Unavailable Unavailable Esha Grimm PA-C Unavailable [phone] Valery Veronica PA-C Unavailable [phone] Rey Tay MD Unavailable Rocky Zepeda DO Unavailable Philip Dumont MD Unavailable [phone] Meredith Carrera PA-C Unavailable [phone] Neil Kent MD Unavailable Juan Pablo Emmanuel MD Unavailable [phone] Audrey Waite PA-C Unavailable Encounter Details Date Type Department Care Team (Late st Contact Info) Description 12/18/2021 Telephone [facility] [address] [place] [address] Lauren Claudio PA-C [address] [place] [address] Social History Tobacco Use Types [...] How often do you attend taoism or jew serv ices? Never 09/22/2021 Do [...] Answer Date Recorded PHQ-2 Score 2 12/18/2021 [facility] [...] in a chcf (including now)? No 09/22/2021 [place] Depression Scale Answer Date Recorded [place] Depression Score 5 01/14/2021 Last EPDS Self [...] be reached at: Home number on file [phone] (home) Best Time: ANYTIME Can we leave a detailed message on this number? YES Call taken on 12/18/2021 at 11:01 AM by Amalia Deluca documented in this encounter Plan of Treatment Upcoming Encounters Date Type Department Care Team (Late st Contact Info) Description 03/26/2024 11:20 AM CDT Office Visit [facility] Spine and Neurosurgery [address] [place] [address] Ebony Cid, THERAPEUTIC RECREATION DIRECTOR [facility] [address] [place] [address] 03/27/2024 11:00 AM CDT Office Visit [facility] Hussain [address] [place] [phone] Frankie Jelena Garcia, [place] [address] [facility] [place] [address] 03/29/2024 3:30 PM CDT Therapy Visit [facility] [address] [facility] [address] [place] [phone] Ingris Thompson, PT [facility] [address] [place] [address] 106 [place] [address] 04/05/2024 2:10 PM CDT Therapy Visit [facility] [address] [facility] [address] [place] [phone] Ingris Thompson, PT [facility] [address] [place] [address] 106 [place] [address] 04/19/2024 2:45 PM CDT Office Visit [facility] 830 [place] [phone] Audrey Waite PA-C [address] [facility] [address], [facility] 603 [place] [address] 05/08/2024 1:30 PM CDT Office Visit [facility] [address] [place] [phone] Lauren Claudio PA-C [address] [place], [place] [phone] Esha Grimm PA-C [address] [facility] [address] 06/21/2024 2:00 PM DIRECTOR OF HOME HEALTH SERVICES Office Visit [facility] Neurology [facility] [address] [facility], [address] [place] [address] [place] [address] [place] [address] Johnny Penn MD [address]558 [facility] [place] [address] documented as of this encounter Visit Diagnoses Not on filedocumented in this encounter Additional Health Concerns Infection Onset Date Last Indicated Resolved Time Rule Out COVID-19 12/18/2021 12/18/2021 12/19/2021 11:34 AM CDT Rule Out COVID-19 02/24/2022 02/24/2022 02/25/2022 1:08 PM CDT Rule Out COVID-19 04/26/2022 04/26/2022 04/26/2022 6:47 AM CDT Rule Out COVID-19 05/17/2022 05/17/2022 05/17/2022 10:20 PM DIRECTOR OF HOME HEALTH SERVICES Rule Out COVID-19 06/09/2022 06/09/2022 06/09/2022 9:35 AM DIRECTOR OF HOME HEALTH SERVICES COVID-19 06/09/2022 06/09/2022 06/30/2022 11:4 1 PM DIRECTOR OF HOME HEALTH SERVICES Rule Out COVID-19 11/10/2022 11/10/2022 11/11/2022 12:17 PM CDT Rule Out COVID-19 03/07/2023 03/07/2023 03/07/2023 1:20 PM CDT Rule Out COVID-19 12/26/2023 12/26/2023 12/26/2023 9:50 AM CDT Assessment Noted Time PHQ-9 Depression Total Score: 2 12/19/19 2:50 PM CDT documented as of this encounter Care Teams Joinery Setter Out Relationship Specialty Start Date End Date Marija Edgar APRN ELECTRICAL ASSISTANT PCP - General Nurse Practitioner 04/30/20 04/14/23 Esha Grimm PA-C [address] [place] [phone] PCP - General Family Medicine 05/04/23 Lita Oseguera Personal Advocate & Liaison (PAL) 02/28/20 03/27/23 Marija Edgar APRN ELECTRICAL ASSISTANT Assigned PCP 06/08/20 04/29/23 Keisha Dotson MD 909 [place], [place] 554225 Assigned Neuroscience Provider 06/04/20 04/01/23 Galo Burrell MD Assigned Heart and Vascular Provider 10/05/20 04/02/22 Diana Desir, [facility] 3033 [place] [address] Pharmacist Pharmacist 04/17/21 Rain Galaviz PA-C [address] [facility] [place] [address] Physician Bone Worker Dermatology 04/28/21 Summer Lara MD [address] [place] [address] Assigned OBGYN Provider 05/31/21 2 Tavia Wyatt MD [address] [place] [address] Dermatology 07/14/21 Johnny Murillo MD [address] [place] [address] Assigned Musculoskeletal Provider 08/30/21 03/17/22 Erica Farrell APRN ELECTRICAL ASSISTANT 6[address] [facility] [address] [place] [address] Nurse Practitioner Cardiovascular Disease 09/09/21 Tavia Wyatt MD Assigned Surgical Provider 11/29/21 05/07/22 Diana Desir, [facility] 3033 [place] [address] Assigned MTM Pharmacist 01/02/22 Rich Barrett MD [address] 563125 Physician Ophthalmology 01/21/22 Neil Kent MD 500 [place] [address] Dermatology 02/24/22 Roney Story DPM [address] [facility] [address] [place], [place] 817967 Assigned Musculoskeletal Provider 03/20/22 08/13/22 Erica Farrell APRN ELECTRICAL ASSISTANT 1700 [place] [address] Assigned Heart and Vascular Provider 04/03/22 04/16/22 Diana Desir, [facility] [address] [place], [place] 873996 Assigned MTM Pharmacist 04/07/22 Frankie Jelenamao Garcia OD [address] [facility] [place] [address] Assigned Surgical Provider 05/08/22 10/08/22 Galo Burrell MD Assigned Heart and Vascular Provider 04/17/22 06/11/22 Livan Sharif MD [address] [place], [place] 6[address] Cardiovascular Disease 05/14/22 Livan Sharif MD [address] [place], [place] 0439[address] Assigned Heart and Vascular Provider 06/12/22 07/23/22 Catherine Cm MD [address] [place], [place] 298[address] Cardiovascular Disease 07/21/22 Valery Veronica, PA-C 909 [place], [place] 883785 Physician Bone Worker Dermatology 07/21/22 Catherine Cm MD [address] [place], [place] 311425 Assigned Heart and Vascular Provider 07/24/22 11/05/22 Johnny Murillo MD [address] [place] [address] Assigned Musculoskeletal Provider 08/14/22 10/08/22 Brea Quinn APRN ELECTRICAL ASSISTANT [address] [facility] [place], [place] 398[address] Nurse Practitioner Dermatology 09/21/22 Brea Quinn APRN ELECTRICAL ASSISTANT 64[address] [place], [place] 002002 Assigned Surgical Provider 10/09/22 [place] [address] [facility] 300 [place], [place] 065447 Assigned Musculoskeletal Provider 10/09/22 Livan Sharif MD [address], [facility] [address] [place] [address] Assigned Heart and Vascular Provider 11/06/22 11/12/22 Cahterine Cm MD [address] [facility] [address] [place], [place] 5947[address] Assigned Heart and Vascular Provider 11/13/22 05/27/23 Sydnie Martinez RN Personal Advocate & Liaison (PAL) Family Medicine 03/28/23 07/31/23 Alfonso Renteria MD [address] [facility] 200 [place] [address] Assigned Neuroscience Provider 04/02/23 Cheng Todd PA-C [address] [place] [address] [phone] Assigned PCP 04/30/23 07/15/23 Radha Lomeli APRN CNP 6[address] [facility] [address] [place] [address] Assigned Heart and Vascular Provider 05/28/23 Jelena David OD [address] [facility] [place] [address] MD Ophthalmology 06/15/23 Pao Joseph, VJ Personal Advocate & Liaison (PAL) Nurse 08/01/23 11/07/23 Esha Grimm PA-C [address] [place] [phone] Assigned PCP 07/16/23 Valery Veronica PA-C [address] [place] [address] 407255 Physician Bone Worker Dermatology 09/19/23 Rey Tay MD [address] [place] [address] 508945 Gastroenterology 09/20/23 Rocky Zepeda DO [address] [place] [address] 950475 Physician Gastroenterology 09/20/23 Philip Dumont MD [address] [place] [address] 701375 Physician Ophthalmology 09/22/23 Meredith Carrera PA-C [address] [place] [address] Assigned Gastroenterology Provider 11/01/23 Neil Kent MD [address] [address] Dermatology 11/02/23 [place] [address] [address] Neurological Surgery 12/26/23 Audrey Waite, PA-C 500 [place] [address] Physician Bone Worker Dermatology 02/28/24 documented as of this encounter
--- OUTSIDE RECORDS SUMMARY | 2024-03-23 16:03 | XMS_ITS | Encounter Summary ---
Author Organization [facility] Address [address] [place] [address] Care Team Providers Care Soft Boarder Name Role Phone Lita Oseguera Unavailable Unavailable Marija Edgar APRN ORDER ENTRY SPECIALIST Primary Care Provider + Mraija Edgar APRN ORDER ENTRY SPECIALIST Unavailable [phone] Keisha Dotson MD Unavailable [phone] Diana Desir [facility] Unavailable [phone] Rain Galaviz PA-C Unavailable [phone] Tavia Wyatt MD Unavailable Unavailable Erica Farrell APRN ORDER ENTRY SPECIALIST Unavailable Tavia Wyatt MD Unavailable Unavailable Rich Barrett MD Unavailable [phone] Neil Kent MD Unavailable Roney Story DPM Unavailable [phone] Diana Desir [facility] Unavailable [phone] Jelena David OD Unavailable Galo Burrell MD Unavailable Unavailable Livan Sharif MD Unavailable Livan Sharif MD Unavailable Catherine Cm MD Unavailable + Valery Veronica PA-C Unavailable Catherine Cm MD Unavailable + Johnny Murillo MD Unavailable [phone] Brea Quinn FANCY PACKER ORDER ENTRY SPECIALIST Unavailable [phone] Brea Quinn FANCY PACKER ORDER ENTRY SPECIALIST Unavailable [phone] Jose Francisco Johnson MD Unavailable Livan Sharif MD Unavailable Catherine Cm MD Unavailable + Sydnie Martinez RN Unavailable Unavailable Alfonso Renteria MD Unavailable [phone] Esha Grimm PA-C Primary Care Provider Cheng Todd PA-C Unavailable Radha Lomeli FANCY PACKER ORDER ENTRY SPECIALIST Unavailable Frankie Jelena Garcia OD Unavailable Pao Joseph RN Unavailable Unavailable Esha Grimm PA-C Unavailable [phone] Valery Veronica PA-C Unavailable Rye Tay MD Unavailable Rocky Zepeda DO Unavailable Philip Dumont MD Unavailable [phone] Meredith Carrera PA-C Unavailable Neil Kent MD Unavailable Juan Pablo Emmanuel MD Unavailable Audrey Waite PA-C Unavailable Encounter Details Date Type Department Care Team (Late st Contact Info) Description 04/20/2022 [facility] Heart [address] [place] [phone] Margaret Rendon, RN Social History Tobacco Use [...] How often do you attend mormon or evangelical serv ices? Never 09/22/2021 Do [...] PHQ-2 Score 2 12/18/2021 [facility] - [facility] Questionnaire Answer [...] in a residential (including now)? No 09/22/2021 [place] Depression Scale Answer Date Recorded [place] Depression Score 5 01/14/2021 Last EPDS Self [...] [facility]ine [facility] Neurosurgery [address] [facility] [address] [place] [phone] Ebony Cid, FANCY PACKER [facility] 500 [place] [address] 03/27/2024 11:00 AM CDT Office Visit [facility] Monserrat [address] [facility] [address] [place] [phone] Jelena David, [address] [facility] [place] [address] 03/29/2024 3:30 PM CDT Therapy Visit [address] 160 [place] [phone] Ingris Thompson, PT [facility] [address] [place] [address] 04/05/2024 2:10 PM CDT Therapy Visit [address] [place] [phone] Ingris Thompson, PT [facility] [address] [place] [address] 04/19/2024 2:45 PM CDT Office Visit [facility] 830 [place] [phone] Audrey Waite PA-C 420 [facility] [address], [facility] 603 [place], [place] 228495 05/08/2024 1:30 PM CDT Office Visit [facility] [address] [place] [phone] Lauren Claudio PA-C [address] [place], [place] [phone] Esha Grimm PA-C [address] [place] [address] 06/21/2024 2:00 PM PUBLICITY EXPERT Office Visit [facility] Clinics - [address], [address] [place] [address] [place] [address] [place], [place] 024[address] Johnny Penn MD 6545 [place], [place] 105655 documented as of this encounter Visit Diagnoses Not on filedocumented in this encounter Additional Health Concerns Infection Onset Date Last Indicated Resolved Time Rule Out COVID-19 04/26/2022 04/26/2022 04/26/2022 6:47 AM CDT Rule Out COVID-19 05/17/2022 05/17/2022 05/17/2022 10:20 PM PUBLICITY EXPERT Rule Out COVID-19 06/09/2022 06/09/2022 06/09/2022 9:35 AM PUBLICITY EXPERT COVID-19 06/09/2022 06/09/2022 06/30/2022 11:4 1 PM PUBLICITY EXPERT Rule Out COVID-19 11/10/2022 11/10/2022 11/11/2022 12:17 PM CDT Rule Out COVID-19 03/07/2023 03/07/2023 03/07/2023 1:20 PM CDT Rule Out COVID-19 12/26/2023 12/26/2023 12/26/2023 9:50 AM CDT Assessment Noted Time PHQ-9 Depression Total Score: 2 12/19/19 2:50 PM CDT documented as of this encounter Care Teams Soft Boarder Relationship Specialty Start Date End Date Marija Edgar APRN ORDER ENTRY SPECIALIST PCP - General Nurse Practitioner 04/30/20 04/14/23 Esha Grimm PA-C [address] [place] [phone] PCP - General Family Medicine 05/04/23 Lita Oseguera Personal Advocate & Liaison (PAL) 02/28/20 03/27/23 Marija Edgar APRN ORDER ENTRY SPECIALIST Assigned PCP 06/08/20 04/29/23 Keisha Dotson MD 909 [place], [place] 444295 Assigned Neuroscience Provider 06/04/20 04/01/23 Diana Desir [facility] 3033 [place], [place] 916586 Pharmacist Pharmacist 04/17/21 Rain Galaviz PA-C [address] [place] [address] [place] [address] Physician Diversified Crops I Farmworker Dermatology 04/28/21 Tavia Wyatt MD [address] [place] [address] [place] [address] Dermatology 07/14/21 Erica Farrell APRN ORDER ENTRY SPECIALIST [address] [place] [address] Nurse Practitioner Cardiovascular Disease 09/09/21 Tavia Wyatt MD Assigned Surgical Provider 11/29/21 05/07/22 Rich Barrett MD [address] 503845 Physician Ophthalmology 01/21/22 Neil Kent MD 500 [place], [place] 345785 Dermatology 02/24/22 Roney Story DPM [address] [facility] [address] [place], [place] 062287 Assigned Musculoskeletal Provider 03/20/22 08/13/22 Diana Desir, [facility] 30[address] [place] [address] Assigned MTM Pharmacist 04/07/22 Jelena David OD [address] [place] [address] Assigned Surgical Provider 05/08/22 10/08/22 Galo Burrell MD Assigned Heart and Vascular Provider 04/17/22 06/11/22 Livan Sharif MD [address], [facility] [address] [place] 136975 Cardiovascular Disease 05/14/22 Livan Sharif MD [address], [facility] [address] [place] 262115 Assigned Heart and Vascular Provider 06/12/22 07/23/22 Catherine Cm MD [address] [facility] [place] 792495 Cardiovascular Disease 07/21/22 Valery Veronica PAUcheC [address] [place] [address] 091635 Physician Diversified Crops I Farmworker Dermatology 07/21/22 Catherine Cm MD [address] [facility] [place] 993845 Assigned Heart and Vascular Provider 07/24/22 11/05/22 Johnny Murillo MD [address] [place] [address] 530454 Assigned Musculoskeletal Provider 08/14/22 10/08/22 Brea Quinn APRN ORDER ENTRY SPECIALIST [address] [place] [place] [address] 905485 Nurse Practitioner Dermatology 09/21/22 Brea Quinn APRN ORDER ENTRY SPECIALIST [address] [place] [address] [facility] [place] [id number] Assigned Surgical Provider 10/09/22 [place] [address] [address] [facility] 300 [place] [address] Assigned Musculoskeletal Provider 10/09/22 Livan Sharif MD [address], [facility] [address] [place] [address] Assigned Heart and Vascular Provider 11/06/22 11/12/22 Catherine Cm MD [address] [facility] [address] [place] [address] Assigned Heart and Vascular Provider 11/13/22 05/27/23 Sydnie Martinez RN Personal Advocate & Liaison (PAL) Family Medicine 03/28/23 07/31/23 Alfonso Renteria MD 5775 [facility] 200 [place] [address] Assigned Neuroscience Provider 04/02/23 Cheng Todd PA-C [address] [place] [address] [id number] Assigned PCP 04/30/23 07/15/23 Radha Lomeli APRN ORDER ENTRY SPECIALIST [address] [place] [address] Assigned Heart and Vascular Provider 05/28/23 Jelena David OD [address] [place] [address] MD Ophthalmology 06/15/23 Pao Joseph, RN Personal Advocate & Liaison (PAL) Nurse 08/01/23 11/07/23 Esha Grimm PA-C [address] [place] [address]687[address] Assigned PCP 07/16/23 Valery Veronica PA-C [address] [place] [address] Physician Diversified Crops I Farmworker Dermatology 09/19/23 Rey Tay MD [address] [place] [address] 883335 MD Gastroenterology 09/20/23 Rocky Zepeda DO [address] [place] [address] 162865 Physician Gastroenterology 09/20/23 Philip Dumont MD [address] [place] [address] 111965 Physician Ophthalmology 09/22/23 Meredith Carrera PA-C [address] [place] [address] 120815 Assigned Gastroenterology Provider 11/01/23 Neil Kent MD [address] 639900 Dermatology 11/02/23 [place] [address] [place] [address] Neurological Surgery 12/26/23 Audrey Waite PA-C 500 [place], [place] 229865 Physician Diversified Crops I Farmworker Dermatology 02/28/24 documented as of this encounter
--- OUTSIDE RECORDS SUMMARY | 2024-03-23 16:03 | XMS_ITS | Encounter Summary ---
Author Organization [facility] Address [address] [place] [address] Care Team Providers Care Promotions Executive Name Role Phone Lita Oseguera Unavailable Unavailable Marija Edgar APRN PERINATAL BREASTFEEDING ASSISTANT Primary Care Provider + Marija Edgar APRN PERINATAL BREASTFEEDING ASSISTANT Unavailable [phone] Keisha Dotson MD Unavailable Diana Desir [facility] Unavailable [phone] Rain Galaviz PA-C Unavailable [phone] Tavia Wyatt MD Unavailable Unavailable Erica Farrell APRN PERINATAL BREASTFEEDING ASSISTANT Unavailable Tavia Wyatt MD Unavailable Unavailable Rich Barrett MD Unavailable [phone] Neil Kent MD Unavailable Roney Story DPM Unavailable [phone] Diana Desir [facility] Unavailable [phone] Jelena David OD Unavailable Galo Burrell MD Unavailable Unavailable Livan Sharif MD Unavailable Livan Sharif MD Unavailable Catherine Cm MD Unavailable + Valery Veronica PA-C Unavailable Catherine Cm MD Unavailable + Johnny Murillo MD Unavailable [phone] Brea Quinn BURNER TENDER PERINATAL BREASTFEEDING ASSISTANT Unavailable [phone] Brea Quinn BURNER TENDER PERINATAL BREASTFEEDING ASSISTANT Unavailable [phone] Jose Francisco Johnson MD Unavailable Livan Sharif MD Unavailable Catherine Cm MD Unavailable + Sydnie Martinez RN Unavailable Unavailable Alfonso Renteria MD Unavailable Esha Grimm PA-C Primary Care Provider Cheng Todd PA-C Unavailable Radha Lomeli BURNER TENDER PERINATAL BREASTFEEDING ASSISTANT Unavailable Frankie Jelena Garcia OD Unavailable Pao Joseph RN Unavailable Unavailable Esha Grimm PA-C Unavailable [phone] Valery Veronica PA-C Unavailable Rey Tay MD Unavailable Rocky Zepeda DO Unavailable Philip Dumont MD Unavailable [phone] Meredith Carrera PA-C Unavailable [phone] Neil Kent MD Unavailable Juan Pablo Emmanuel MD Unavailable [phone] Audrey Waite PA-C Unavailable [phone] Encounter Details Date Type Department Care Team (Late st Contact Info) Description 05/01/2022 [facility] [address] [place] [address] Diana Desir Stanislav, [facility] [address] [place] [address] Social History Tobacco Use Types Packs/Day Years [...] How often do you attend worship or faith serv ices? Never 09/22/2021 Do [...] Answer Date Recorded PHQ-2 Score 2 12/18/2021 [facility] - [facility]ational Stress Questionnaire Answer [...] money to buy more. Never true 09/23/19 Within the past 12 months, t he [...] in a chcf (including now)? No 09/22/2021 [place] Depression Scale Answer Date Recorded [place] Depression Score 5 01/14/2021 Last EPDS Self [...] Visit [facility] [address] [place] [address] [address] [place] [address] Ebony Cid, BURNER TENDER [facility] 500 [place] [address] 03/27/2024 11:00 AM CDT Office Visit [facility] [address] [facility] [address] [place] [phone] Jelena David, [address] [facility] [place] [address] 03/29/2024 3:30 PM CDT Therapy Visit [address] [place] [address] Ingris Thompson, PT [facility] [address] [place] [address] 735785 04/05/2024 2:10 PM CDT Therapy Visit [address] [place] [phone] Ingris Thompson, PT [facility] [address] [place] [address] 505585 04/19/2024 2:45 PM CDT Office Visit [address] [phone] Audrey Waite PA-C [address], [facility] 603 [place], [place] 557705 05/08/2024 1:30 PM CDT Office Visit [facility] [address] [place] [address] Lauren Caludio PA-C [address] [place] [address] Esha Grimm PA-C [address] [place] [address] 06/21/2024 2:00 PM PARANORMAL INVESTIGATOR Office Visit [facility] Neurology Clinics - [address], [address] [place] [address] [place] [address] [place], [place] [phone] Johnny Penn MD [address] [place], [place] [phone] documented as of this encounter Visit Diagnoses Not on filedocumented in this encounter Additional Health Concerns Infection Onset Date Last Indicated Resolved Time Rule Out COVID-19 05/17/2022 05/17/2022 05/17/2022 10:20 PM PARANORMAL INVESTIGATOR Rule Out COVID-19 06/09/2022 06/09/2022 06/09/2022 9:35 AM PARANORMAL INVESTIGATOR COVID-19 06/09/2022 06/09/2022 06/30/2022 11:4 1 PM PARANORMAL INVESTIGATOR Rule Out COVID-19 11/10/2022 11/10/2022 11/11/2022 12:17 PM CDT Rule Out COVID-19 03/07/2023 03/07/2023 03/07/2023 1:20 PM CDT Rule Out COVID-19 12/26/2023 12/26/2023 12/26/2023 9:50 AM CDT Assessment Noted Time PHQ-9 Depression Total Score: 2 12/19/19 2:50 PM CDT documented as of this encounter Care Teams Promotions Executive Relationship Specialty Start Date End Date Marija Edgar APRN PERINATAL BREASTFEEDING ASSISTANT PCP - General Nurse Practitioner 04/30/20 04/14/23 Esha Grimm PA-C [address] [place] [address] PCP - General Family Medicine 05/04/23 Lita Oseguera Personal Advocate & Liaison (PAL) 02/28/20 03/27/23 Marija Edgar APRN PERINATAL BREASTFEEDING ASSISTANT Assigned PCP 06/08/20 04/29/23 Keisha Dotson MD 9[address] [place], [place] 433075 Assigned Neuroscience Provider 06/04/20 04/01/23 Diana Desir [facility] [address] [place], [place] [phone] Pharmacist Pharmacist 04/17/21 Rain Galaviz PA-C [address] [place] [address] [facility] [place] [address] Physician Last Sawyer Dermatology 04/28/21 Tavia Wyatt MD [address] [place] [address] [place] [address] Dermatology 07/14/21 Erica Farrell APRN PERINATAL BREASTFEEDING ASSISTANT [address] [place] [address] Nurse Practitioner Cardiovascular Disease 09/09/21 Tavia Wyatt MD Assigned Surgical Provider 11/29/21 05/07/22 Rich Barrett MD [address] 236325 Physician Ophthalmology 01/21/22 Neil Kent MD 500 [place], [place] 668965 Dermatology 02/24/22 Roney [place] DPM [address] [facility] [address] [place] [address] Assigned Musculoskeletal Provider 03/20/22 08/13/22 Diana Desir, [facility] [address] [place] [address] Assigned MTM Pharmacist 04/07/22 Jelena David OD [address] [facility] [place] [address] Assigned Surgical Provider 05/08/22 10/08/22 Galo Burrell MD Assigned Heart and Vascular Provider 04/17/22 06/11/22 Livan Sharif MD [address], [facility] [address] [place] [address] Cardiovascular Disease 05/14/22 Livan Sharif MD [address], [facility] [address] [place] 544125 Assigned Heart and Vascular Provider 06/12/22 07/23/22 Catherine Cm MD [address] [facility] [address] [place] 579425 Cardiovascular Disease 07/21/22 Valery Veronica, PA-C [address] [place] [address] 042235 Physician Last Sawyer Dermatology 07/21/22 Catherine Cm MD [address] [facility] [address] [place] 891665 Assigned Heart and Vascular Provider 07/24/22 11/05/22 Johnny Murillo MD [address] [place] [address] 239324 Assigned Musculoskeletal Provider 08/14/22 10/08/22 Brea Quinn APRN PERINATAL BREASTFEEDING ASSISTANT [address] [place] [address] 968735 Nurse Practitioner Dermatology 09/21/22 Brea Quinn APRN PERINATAL BREASTFEEDING ASSISTANT [address] [place] [address] [place] 414502 Assigned Surgical Provider 10/09/22 [place] [address] [facility] [address] [place] [address] Assigned Musculoskeletal Provider 10/09/22 Livan Sharif MD [address], [facility] [address] [place] 467725 Assigned Heart and Vascular Provider 11/06/22 11/12/22 Catherine Cm MD [address] [place] [address] [place] 047675 Assigned Heart and Vascular Provider 11/13/22 05/27/23 Sydnie Martinez RN Personal Advocate & Liaison (PAL) Family Medicine 03/28/23 07/31/23 Alfonso Renteria MD [address]75 [facility] 200 [place], [place] 643106 Assigned Neuroscience Provider 04/02/23 Cheng Todd PA-C [address] [place] [address] [id number] Assigned PCP 04/30/23 07/15/23 Radha Lomeli APRN PERINATAL BREASTFEEDING ASSISTANT [address] [place] 255645 Assigned Heart and Vascular Provider 05/28/23 Jelena David OD [address] [facility] [place] [address] Ophthalmology 06/15/23 Pao Joseph, VJ Personal Advocate & Liaison (PAL) Nurse 08/01/23 11/07/23 Esha Grimm PA-C [address] [place] [address] Assigned PCP 07/16/23 Valery Veronica PA-C [address] [place] [address] 042085 Physician Last Sawyer Dermatology 09/19/23 Rey Tay MD [address] [place] [address] 103025 MD Gastroenterology 09/20/23 Rocky Zepeda DO [address] [place] [address] 652595 Physician Gastroenterology 09/20/23 Philip Dumont MD [address] [place] [address] 483255 Physician Ophthalmology 09/22/23 Meredith Carrera PA-C [address] [place] [address] 661575 Assigned Gastroenterology Provider 11/01/23 Neil Kent MD [address] [place] [address] Dermatology 11/02/23 [place] [address] [place] [address] Neurological Surgery 12/26/23 Audrey Waite PA-C 500 [place] [address] Physician Last Sawyer Dermatology 02/28/24 documented as of this encounter
--- OUTSIDE RECORDS SUMMARY | 2024-03-23 16:03 | XMS_ITS | Encounter Summary ---
Author Organization [facility] Address [address] [place] [address] Care Team Providers Care Frame Stripper And Crusher Name Role Phone Lita Oseguera Unavailable Unavailable Marija Edgar APRN PICKER MACHINE OPERATOR Primary Care Provider + Marija Edgar APRN PICKER MACHINE OPERATOR Unavailable [phone] Keisha Dotson MD Unavailable [phone] Galo Burrell MD Unavailable Unavailable Diana Desir [facility] Unavailable [phone] Rain Galaviz PA-C Unavailable Summer Lara MD Unavailable [phone] Tavia Wyatt MD Unavailable Unavailable Johnny Murillo MD Unavailable [phone] Erica Farrell APRN PICKER MACHINE OPERATOR Unavailable Tavia Wyatt MD Unavailable Unavailable Diana Desir [facility] Unavailable [phone] Rich Barrett MD Unavailable [phone] Neil Kent MD Unavailable Roney Story DPM Unavailable [phone] Erica Farrell APRN PICKER MACHINE OPERATOR Unavailable Diana Desir [facility] Unavailable FrankieJelenae OD Unavailable Galo Burrell MD Unavailable Unavailable Livan Sharif MD Unavailable Livan Sharif MD Unavailable IsCatherine hobbs MD Unavailable + Valery Veronica PA-C Unavailable [phone] IsCatherine hobbs MD Unavailable + Johnny Murillo MD Unavailable [phone] Brea Quinn ENTERPRISE RESOURCE PLANNER PICKER MACHINE OPERATOR Unavailable [phone] Brea Quinn ENTERPRISE RESOURCE PLANNER PICKER MACHINE OPERATOR Unavailable [phone] Jose Francisco Johnson MD Unavailable Livan Sharif MD Unavailable + IsraynaCatherine boothe MD Unavailable + Sydnie Martinez RN Unavailable Unavailable Alfonso Renteria MD Unavailable Esha Grimm PA-C Primary Care Provider Cheng Todd PA-C Unavailable Radha Lomeli ENTERPRISE RESOURCE PLANNER PICKER MACHINE OPERATOR Unavailable [phone] Jelena David OD Unavailable [phone] Pao Joseph RN Unavailable Unavailable Esha Grimm PA-C Unavailable [phone] Valery Veronica PA-C Unavailable [phone] Rey Tay MD Unavailable Rocky Zepeda DO Unavailable Philip Dumont MD Unavailable [phone] Meredith Carrera PA-C Unavailable [phone] Neil Kent MD Unavailable Juan Pablo Emmanuel MD Unavailable [phone] Audrey Waite PA-C Unavailable [phone] Encounter Details Date Type Department Care Team (Late st Contact Info) Description 12/03/2021 [facility] [address], [address] [place] [address] Keisha Dotson MD 9 [place] [address] Social History Tobacco Use Types [...] How often do you attend spiritism or rastafarian serv ices? Never 09/22/2021 Do you belong [...] Answer Date Recorded PHQ-2 Score 2 09/22/2021 [facility] [...] in a retirement (including now)? No 09/22/2021 [place] Depression Scale Answer Date Recorded [place] Depression Score 5 01/14/2021 Last EPDS Self [...] [facility] [address] [facility] [address] [place] [phone] Ebony Cid, [facility] 500 [place], [place] 659245 03/27/2024 11:00 AM CDT Office Visit [facility] [place] [address] [place] [phone] Jelena David, OD [address] [facility] [place] [address] 03/29/2024 3:30 PM CDT Therapy Visit [facility] [place] [address] [place] [address] [address] [place] [phone] Ingris Thompson, PT [facility] 516 [facility] 106 [place] [address] 04/05/2024 2:10 PM CDT Therapy Visit [facility] [place] [address] [facility] [address] [place] [phone] Ingris Thompson, PT [facility] 516 [facility] 106 [place], [place] [address] 04/19/2024 2:45 PM CDT Office Visit [facility] 830 [place] [address] Audrey Waite PA-C 420 [facility] [address], [facility] 603 [place], [place] 513315 05/08/2024 1:30 PM CDT Office Visit [facility] [address] [place] [phone] Lauren Claudio PA-C [address] [place], [place] [phone] Esha Grimm PA-C [address] [place] [phone] 06/21/2024 2:00 PM LAN/WAN ENGINEER Office Visit [facility] - [place] [address] [place] [address], [address] [place] [address] [place] [address] [place] [address] Johnny Penn MD 6591 [place] [address] documented as of this encounter Visit Diagnoses Not on filedocumented in this encounter Additional Health Concerns Infection Onset Date Last Indicated Resolved Time Rule Out COVID-19 12/18/2021 12/18/2021 12/19/2021 11:34 AM CDT Rule Out COVID-19 02/24/2022 02/24/2022 02/25/2022 1:08 PM CDT Rule Out COVID-19 04/26/2022 04/26/2022 04/26/2022 6:47 AM CDT Rule Out COVID-19 05/17/2022 05/17/2022 05/17/2022 10:20 PM LAN/WAN ENGINEER Rule Out COVID-19 06/09/2022 06/09/2022 06/09/2022 9:35 AM LAN/WAN ENGINEER COVID-19 06/09/2022 06/09/2022 06/30/2022 11:4 1 PM LAN/WAN ENGINEER Rule Out COVID-19 11/10/2022 11/10/2022 11/11/2022 12:17 PM CDT Rule Out COVID-19 03/07/2023 03/07/2023 03/07/2023 1:20 PM CDT Rule Out COVID-19 12/26/2023 12/26/2023 12/26/2023 9:50 AM CDT Assessment Noted Time PHQ-9 Depression Total Score: 2 04/02/20 21 10:19 AM CDT documented as of this encounter Care Teams Frame Stripper And Crusher Relationship Specialty Start Date End Date Marija Edgar APRN PICKER MACHINE OPERATOR PCP - General Nurse Practitioner 04/30/20 04/14/23 Esha Grimm PA-C [address] [place] [address] PCP - General Family Medicine 05/04/23 Lita Oseguera Personal Advocate & Liaison (PAL) 02/28/20 03/27/23 Marija Edgar APRN PICKER MACHINE OPERATOR Assigned PCP 06/08/20 04/29/23 Keisha Dotson MD 909 [place] [address] Assigned Neuroscience Provider 06/04/20 04/01/23 Galo Burrell MD Assigned Heart and Vascular Provider 10/05/20 04/02/22 [facility] [address] [place] [address] Pharmacist Pharmacist 04/17/21 Rain Galaviz PA-C [address] [facility] [address] Physician Lens Shaper Grinder Dermatology 04/28/21 Summer Lara MD [address] [place] [address] 804834 Assigned OBGYN Provider 05/31/21 2 Tavia Wyatt MD [address] [place] [address] Dermatology 07/14/21 Johnny Murillo MD [facility] [facility] [address] [place] [address] Assigned Musculoskeletal Provider 08/30/21 03/17/22 Erica Farrell APRN PICKER MACHINE OPERATOR [address] [facility] [address] [place] [address] Nurse Practitioner Cardiovascular Disease 09/09/21 Tavia Wyatt MD Assigned Surgical Provider 11/29/21 05/07/22 Diana Desir, [facility] 3033 [place] [address] Assigned MTM Pharmacist 01/02/22 Rich Barrett MD [address] 323435 Physician Ophthalmology 01/21/22 Neil Kent MD 500 [place], [place] 6[address]755 Dermatology 02/24/22 [place] [address] [facility] [address] [place] [address] Assigned Musculoskeletal Provider 03/20/22 08/13/22 Erica Farrell APRN PICKER MACHINE OPERATOR 1700 [place] [address] Assigned Heart and Vascular Provider 04/03/22 04/16/22 Diana Desir, [facility] 30[address] [place] [address] Assigned MTM Pharmacist 04/07/22 Jelena David OD [address] [facility] [place] [address] Assigned Surgical Provider 05/08/22 10/08/22 Galo Burrell MD Assigned Heart and Vascular Provider 04/17/22 06/11/22 Livan Sharif MD [address] [place] [address] Cardiovascular Disease 05/14/22 Livan Sharif MD [address], [address] [place] [address] Assigned Heart and Vascular Provider 06/12/22 07/23/22 Catherine Cm MD [address] [place] [address] Cardiovascular Disease 07/21/22 Valery Veronica, PA-C [address] [place] [address] 496145 Physician Lens Shaper Grinder Dermatology 07/21/22 Catherine Cm MD [address] [place] 995305 Assigned Heart and Vascular Provider 07/24/22 11/05/22 Johnny Murillo MD [address] [place] [address] 276014 Assigned Musculoskeletal Provider 08/14/22 10/08/22 Brea Quinn APRN PICKER MACHINE OPERATOR [address] [place] [address] 733785 Nurse Practitioner Dermatology 09/21/22 Brea Quinn APRN PICKER MACHINE OPERATOR [address] [place] [address] [place], [place] 428592 Assigned Surgical Provider 10/09/22 [place] [address] [facility] 300 [place] [address] Assigned Musculoskeletal Provider 10/09/22 Livan Sharif MD [address], [facility] [address] [place] [address] Assigned Heart and Vascular Provider 11/06/22 11/12/22 Catherine Cm MD [address] [place] 550405 Assigned Heart and Vascular Provider 11/13/22 05/27/23 Sydnie Martinez RN Personal Advocate & Liaison (PAL) Family Medicine 03/28/23 07/31/23 Alfonso Renteria MD 57[address] [facility] 200 [place] [address] Assigned Neuroscience Provider 04/02/23 Cheng Todd PA-C [address] [place] [address] Assigned PCP 04/30/23 07/15/23 Radha Lomeli, ARLENE PICKER MACHINE OPERATOR [address] [place] [address] Assigned Heart and Vascular Provider 05/28/23 Jelena David OD [address] [facility] [place] [address] Ophthalmology 06/15/23 Pao Joseph RN Personal Advocate & Liaison (PAL) Nurse 08/01/23 11/07/23 Esha Grimm PA-C [address] [place] [address] Assigned PCP 07/16/23 Valery Veronica PA-C [address] [place] [address] 079855 Physician Lens Shaper Grinder Dermatology 09/19/23 Rey Tay MD [address] [place] [address] 796515 MD Gastroenterology 09/20/23 Rocky Zepeda DO [address] [place] [address] 444755 Physician Gastroenterology 09/20/23 Philip Dumont MD [address] [place] [address] 710425 Physician Ophthalmology 09/22/23 Meredith Carrera PA-C [address] [place] [address] Assigned Gastroenterology Provider 11/01/23 Neil Kent MD [address] [address] Dermatology 11/02/23 [place] [address] [place] [address] Neurological Surgery 12/26/23 Audrey Waite PA-C [address] [place] [address] Physician Lens Shaper Grinder Dermatology 02/28/24 documented as of this encounter
--- OUTSIDE RECORDS SUMMARY | 2024-03-23 16:03 | XMS_ITS | Encounter Summary ---
Author Organization [facility] Address [address] [place] [address] Care Team Providers Care Ela Teacher Name Role Phone Lita Oseguera Unavailable Unavailable Marija Edgar APRN PIT OPERATOR Primary Care Provider + Marija Edgar APRN PIT OPERATOR Unavailable [phone] Mynor Broussard MD Unavailable [phone] Keisha Dotson MD Unavailable Galo Burrell MD Unavailable Unavailable Diana Desir [facility] Unavailable Rain Galaviz PA-C Unavailable Summer Lara MD Unavailable [phone] Tavia Wyatt MD Unavailable Unavailable Johnny Murillo MD Unavailable Erica Farrell APRN PIT OPERATOR Unavailable Tavia Wyatt MD Unavailable Unavailable Diana Desir [facility] Unavailable [phone] Rich Barrett MD Unavailable [phone] Neil Kent MD Unavailable Roney Story DPM Unavailable [phone] Erica Farrell APRN PIT OPERATOR Unavailable Diana Desir [facility] Unavailable [phone] Jelena David OD Unavailable Galo Burrell MD Unavailable Unavailable HoLivan MD Unavailable Livan Sharif MD Unavailable IskoCatherine boothe MD Unavailable + Valery Veronica PA-C Unavailable +[phone] Catherine Cm MD Unavailable + Johnny Murillo MD Unavailable [phone] Brea Quinn PRODUCTION ENGINEER TRACK PIT OPERATOR Unavailable [phone] Brea Quinn PRODUCTION ENGINEER TRACK PIT OPERATOR Unavailable [phone] Jose Francisco Johnson MD Unavailable Livan Sharif MD Unavailable + IsCatherine boothe MD Unavailable + Sydnie Martinez RN Unavailable Unavailable Alfonso Renteria MD Unavailable Esha Grimm-C Primary Care Provider Cheng Todd PA-C Unavailable Radha Lomeli PRODUCTION ENGINEER TRACK PIT OPERATOR Unavailable [phone] Jelena Davide OD Unavailable Pao Joseph RN Unavailable Unavailable Esha Grimm-C Unavailable [phone] Valery Veronica PA-C Unavailable [phone] Rey Tay MD Unavailable Rocky Zepeda DO Unavailable Philip Dumont MD Unavailable [phone] Meredith Carrera PA-C Unavailable [phone] Neil Kent MD Unavailable Juan Pablo Emmanuel MD Unavailable [phone] Audrey Waite PA-C Unavailable [phone] Encounter Details Date Type Department Care Team (Late st Contact Info) Description 11/16/2021 MyC Medical Advice [address] [address] Diana Desir, [facility] [address] [place] [address] Social History Tobacco Use Types [...] How often do you attend taoism or islam serv ices? Never 09/22/2021 Do [...] Date Recorded PHQ-2 Score 2 09/22/2021 [facility] of Occupat ional [facility] - Occupational Stress Questionnaire Answer [...] in a residential (including now)? No 09/22/2021 Ponce Depression Scale Answer Date Recorded Ponce Depression Score 5 01/14/2021 Last EPDS Self [...] Description 03/26/2024 11:20 AM CDT Office Visit [facility] Spine and Neurosurgery [address] [place] [address] [address] [place] [phone] Ebony Cid, ARLENE PIT OPERATOR [address] [place], [place] [address] 03/27/2024 11:00 AM CDT Office Visit [facility] [place] [address] [facility] [address] [place] [phone] Jelena David, SONJA [address] [facility] [place] [address] 03/29/2024 3:30 PM CDT Therapy Visit [facility] Rehabilitation Services [address] [place] [phone] Ingris Thompson, PT [facility] 516 [facility] 106 [place] [address] 04/05/2024 2:10 PM CDT Therapy Visit [facility] Rehabilitation Services [place] [address] [facility] [address] [place] [phone] Ingris Thompson, PT [facility] 516 [facility] 106 [place], [place] [address] 04/19/2024 2:45 PM CDT Office Visit [address] [phone] Audrey Waite PA-C 420 [facility] [address], [facility] 603 [place], [place] 20[address] 05/08/2024 1:30 PM CDT Office Visit [facility] [address] [place] [phone] Lauren Claudio PA-C [address] [place], [place] [phone] Esha Grimm PA-C [address] [place] [address] 06/21/2024 2:00 PM SOFTWARE ASSET MANAGER Office Visit [facility]rology [facility] - [place] [address] [facility], [address] [place] [address] [place] [address] [place] [phone] Johnny Penn MD [address] [facility] [place] [address] documented as of this encounter Visit Diagnoses Not on filedocumented in this encounter Additional Health Concerns Infection Onset Date Last Indicated Resolved Time Rule Out COVID-19 12/18/2021 12/18/2021 12/19/2021 11:34 AM CDT Rule Out COVID-19 02/24/2022 02/24/2022 02/25/2022 1:08 PM CDT Rule Out COVID-19 04/26/2022 04/26/2022 04/26/2022 6:47 AM CDT Rule Out COVID-19 05/17/2022 05/17/2022 05/17/2022 10:20 PM SOFTWARE ASSET MANAGER Rule Out COVID-19 06/09/2022 06/09/2022 06/09/2022 9:35 AM SOFTWARE ASSET MANAGER COVID-19 06/09/2022 06/09/2022 06/30/2022 11:4 1 PM SOFTWARE ASSET MANAGER Rule Out COVID-19 11/10/2022 11/10/2022 11/11/2022 12:17 PM CDT Rule Out COVID-19 03/07/2023 03/07/2023 03/07/2023 1:20 PM CDT Rule Out COVID-19 12/26/2023 12/26/2023 12/26/2023 9:50 AM CDT Assessment Noted Time PHQ-9 Depression Total Score: 2 04/02/20 21 10:19 AM CDT documented as of this encounter Care Teams Ela Teacher Relationship Specialty Start Date End Date Marija Edgar APRN PIT OPERATOR PCP - General Nurse Practitioner 04/30/20 04/14/23 Esha Grimm PA-C [address] [place] [address] PCP - General Family Medicine 05/04/23 Lita Oseguera Personal Advocate & Liaison (PAL) 02/28/20 03/27/23 Marija Edgar APRN PIT OPERATOR Assigned PCP 06/08/20 04/29/23 Mynor Broussard MD [address] [address] Assigned Surgical Provider 06/01/20 11/28/21 Keisha Dotson MD 909 [place] [address] Assigned Neuroscience Provider 06/04/20 04/01/23 Galo Burrell MD Assigned Heart and Vascular Provider 10/05/20 04/02/22 Diana Desir, [facility] [address] [place] [address] Pharmacist Pharmacist 04/17/21 Rain Galaviz PA-C [address] [place] [address] DR RA[address] [place] [address] Physician Dinkey Locomotive Operator Dermatology 04/28/21 Summer Lara MD 606 [facility] [place] [address] Assigned OBGYN Provider 05/31/2103/12/ 2 Tavia Wyatt MD 606 24[place], [place] [address] Dermatology 07/14/21 Johnny Murillo MD [address] [place] [address] Assigned Musculoskeletal Provider 08/30/21 03/17/22 Erica Farrell APRN PIT OPERATOR 6[address] [facility] [address] [place] [address] Nurse Practitioner Cardiovascular Disease 09/09/21 Tavia Wyatt MD Assigned Surgical Provider 11/29/21 05/07/22 Diana Desir, [facility] 3033 [place] [address] Assigned MTM Pharmacist 01/02/22 Rich Barrett MD [address] 009345 Physician Ophthalmology 01/21/22 Neil Kent MD 500 [place], [place] [address] Dermatology 02/24/22 Roney Story DPM [address] [facility] 300 [place] [address] Assigned Musculoskeletal Provider 03/20/22 08/13/22 Erica Farrell APRN PIT OPERATOR 1700 [place] [address] Assigned Heart and Vascular Provider 04/03/22 04/16/22 Diana Desir, [facility] 3033 [place] [address] Assigned MTM Pharmacist 04/07/22 Jelena David OD [address] [facility] [place] [address] Assigned Surgical Provider 05/08/22 10/08/22 Galo Burrell MD Assigned Heart and Vascular Provider 04/17/22 06/11/22 Livan Sharif MD [address], [facility] [address] [place] 9[address]125 Cardiovascular Disease 05/14/22 Livan Sharif MD [address], [facility] [address] [place] 09[address] Assigned Heart and Vascular Provider 06/12/22 07/23/22 Catherine Cm MD [address] [facility] [place] 5[address]35 Cardiovascular Disease 07/21/22 Valery Veronica, PAUcheC [address] [place] [address] 827225 Physician Dinkey Locomotive Operator Dermatology 07/21/22 Catherine Cm MD [address] [facility] W[address] [place] 682235 Assigned Heart and Vascular Provider 07/24/22 11/05/22 Johnny Murillo MD [address] [phone] Assigned Musculoskeletal Provider 08/14/22 10/08/22 Brea Quinn APRN PIT OPERATOR [address] [place] [address] [id number] Nurse Practitioner Dermatology 09/21/22 Brea Quinn, PRODUCTION ENGINEER TRACK PIT OPERATOR [address] [place] AM[place] 687392 Assigned Surgical Provider 10/09/22 [place] [address] [facility] 300 [place] [address] Assigned Musculoskeletal Provider 10/09/22 Livan Sharif MD [address], [facility] [address] [place] 239025 Assigned Heart and Vascular Provider 11/06/22 11/12/22 Catherine Cm MD [address] [address] [place] [address] Assigned Heart and Vascular Provider 11/13/22 05/27/23 JuanSydnie malik RN Personal Advocate & Liaison (PAL) Family Medicine 03/28/23 07/31/23 Alfonso Renteria MD 5775 [facility] 200 [place] [address] Assigned Neuroscience Provider 04/02/23 Cheng Todd PA-C [address] [place] [address] Assigned PCP 04/30/23 07/15/23 Radha Lomeli APRN PIT OPERATOR [address] [place] [address] Assigned Heart and Vascular Provider 05/28/23 Jelena David OD [address] [facility] [place] [address] Ophthalmology 06/15/23 Pao Joseph, RN Personal Advocate & Liaison (PAL) Nurse 08/01/23 11/07/23 Esha Grimm PA-C [address] [place] [phone] Assigned PCP 07/16/23 Valery Veronica PA-C [address] [place] [address] 590455 Physician Dinkey Locomotive Operator Dermatology 09/19/23 Rey Tay MD [address] [place] [address] 563855 MD Gastroenterology 09/20/23 Rocky Zepeda DO [address] [place] [address] 727745 Physician Gastroenterology 09/20/23 Philip Dumont MD [address] [place] [address] 363825 Physician Ophthalmology 09/22/23 Meredith Carrera PA-C [address] [place] [address] 897225 Assigned Gastroenterology Provider 11/01/23 Neil Kent MD [address] [address] Dermatology 11/02/23 [place] [address] [place] [address] Neurological Surgery 12/26/23 Audrey Waite, PAUcheC 500 [place] [address] Physician Dinkey Locomotive Operator Dermatology 02/28/24 documented as of this encounter
[2024-03-23 16:04] LABS: Basophils Absolute Auto 0.02 K/uL (0.00-0.30); Basophils Percent Auto 0.3 % (0.0-3.0); Eosinophils Absolute Auto 0.31 K/uL (0.00-0.50); Eosinophils Percent Auto 5.2 % (0.0-7.0); Hematocrit 38.8 % (33.0-51.0); Hemoglobin* 12.4 gm/dL (12.0-16.0); Immature Granulocytes Abs Auto 0.01 K/uL (0.00-0.30); Immature Granulocytes Pct Auto 0.2 %; Lymphocytes Absolute Auto 2.16 K/uL (0.90-2.90); Lymphocytes Percent Auto 36.4 % (20-44); Mean Corpuscular HGB Conc 32 gm/dL (32-36); Mean Corpuscular Hemoglobin 26 pg (26-34); Mean Corpuscular Volume 82 fL (80-100); Monocytes Percent Auto 6.2 % (0.0-11.0); Neutrophils Absolute Auto 3.06 K/uL (1.7-7.0); Neutrophils Percent Auto 51.7 % (42.0-72.0); Platelet Count* 217 K/uL (140-440); Red Blood Count 4.75 m/uL (4.00-5.20); White Blood Count* 5.93 K/uL (4.50-11.00)
--- OUTSIDE RECORDS SUMMARY | 2024-03-23 16:04 | XMS_ITS | Encounter Summary ---
Author Organization [facility] Address [address] [place] [address] Care Team Providers Care Die Stamper Name Role Phone Lita Oseguera Unavailable Unavailable Marija Edgar APRN SENIOR SHAREPOINT DEVELOPER Primary Care Provider + Marija Edgar APRN SENIOR SHAREPOINT DEVELOPER Unavailable [phone] Mynor Broussard MD Unavailable [phone] Keisha Dotson MD Unavailable [phone] Galo Burrell MD Unavailable Unavailable Diana Desir [facility] Unavailable [phone] Rain Galaviz PA-C Unavailable Summer Lara MD Unavailable [phone] Tavia Wyatt MD Unavailable Unavailable Johnny Murillo MD Unavailable [phone] Erica Farrell APRN SENIOR SHAREPOINT DEVELOPER Unavailable Tavia Wyatt MD Unavailable Unavailable Diana Desir [facility] Unavailable Rich Barrett MD Unavailable [phone] Neil Kent MD Unavailable Roney Story DPM Unavailable [phone] Erica Farrell APRN SENIOR SHAREPOINT DEVELOPER Unavailable Diana Desir [facility] Unavailable [phone] Jelena David OD Unavailable Galo Burrell MD Unavailable Unavailable HoLivan MD Unavailable Livan Sharif MD Unavailable IskoCatherine boothe MD Unavailable + Valery Veronica PA-C Unavailable +[phone] Catherine Cm MD Unavailable + Johnny Murillo MD Unavailable [phone] Brea Quinn WELFARE INTERVIEWER SENIOR SHAREPOINT DEVELOPER Unavailable [phone] Brea Quinn WELFARE INTERVIEWER SENIOR SHAREPOINT DEVELOPER Unavailable [phone] Jose Francisco Johnson MD Unavailable Livan Sharif MD Unavailable + IsCatherine boothe MD Unavailable + Sydnie Martinez RN Unavailable Unavailable Alfonso Renteria MD Unavailable Esha Grimm-C Primary Care Provider Cheng Todd PA-C Unavailable Radha Lomeli WELFARE INTERVIEWER SENIOR SHAREPOINT DEVELOPER Unavailable [phone] Jelena Davide OD Unavailable Pao Joseph RN Unavailable Unavailable Esha Grimm-C Unavailable [phone] Valery Veronica PA-C Unavailable [phone] Rey Tay MD Unavailable Rocky Zepeda DO Unavailable Philip Dumont MD Unavailable [phone] Meredith Carrera PA-C Unavailable [phone] Neil Kent MD Unavailable Juan Pablo Emmanuel MD Unavailable [phone] Audrey Waite PA-C Unavailable [phone] Encounter Details Date Type Department Care Team (Late st Contact Info) Description 11/04/2021 MyC Medical Advice [address] [address] Diana Desir, [facility] 3034 [place] [address] Social History Tobacco Use Types [...] How often do you attend taoist or voodoo serv ices? Never 09/22/2021 Do [...] Answer Date Recorded PHQ-2 Score 2 09/22/2021 [employer] [employer] of Occupat ional [facility] - Occupational Stress Questionnaire Answer Date [...] in a assisted (including now)? No 09/22/2021 Norman Depression Scale Answer Date Recorded Norman Depression Score 5 01/14/2021 Last EPDS Self [...] Visit [facility] Spine and Neurosurgery [address] [place] [address] [address] [place] [phone] Ebony Cid, ARLENE SENIOR SHAREPOINT DEVELOPER 500 [place], [place] [address] 03/27/2024 11:00 AM CDT Office Visit [facility] Clinic [place] [address] [place] [phone] Jelena David, SONJA 3305 [facility] [place] [address] 03/29/2024 3:30 PM CDT Therapy Visit [facility] Rehabilitation Services [address] [place] [phone] Ingris Thompson, PT [facility] 516 [facility] 106 [place] [address] 04/05/2024 2:10 PM CDT Therapy Visit [facility] Rehabilitation Services [place] [address] [facility] [address] [place] [phone] Ingris Thompson, PT [facility] 516 [facility] 106 [place], [place] 6[address] 04/19/2024 2:45 PM CDT Office Visit [address] [phone] Audrey Waite PA-C 420 [facility] [address], [facility] 603 [place], [place] 164255 05/08/2024 1:30 PM CDT Office Visit [facility] [address] [place] [phone] Lauren Claudio PA-C [address] [place], [place] [phone] Esha Grimm PA-C [address] [place] [address] 06/21/2024 2:00 PM CARPET OR RUG LAYER HELPER Office Visit [facility] Neurology Clinics - [place] [address] [facility], [address] [place] [address] [place] [address] [place] [phone] Johnny Penn MD 5257 [facility] [place] [address] documented as of this encounter Visit Diagnoses Not on filedocumented in this encounter Additional Health Concerns Infection Onset Date Last Indicated Resolved Time Rule Out COVID-19 12/18/2021 12/18/2021 12/19/2021 11:34 AM CDT Rule Out COVID-19 02/24/2022 02/24/2022 02/25/2022 1:08 PM CDT Rule Out COVID-19 04/26/2022 04/26/2022 04/26/2022 6:47 AM CDT Rule Out COVID-19 05/17/2022 05/17/2022 05/17/2022 10:20 PM CARPET OR RUG LAYER HELPER Rule Out COVID-19 06/09/2022 06/09/2022 06/09/2022 9:35 AM CARPET OR RUG LAYER HELPER COVID-19 06/09/2022 06/09/2022 06/30/2022 11:4 1 PM CARPET OR RUG LAYER HELPER Rule Out COVID-19 11/10/2022 11/10/2022 11/11/2022 12:17 PM CDT Rule Out COVID-19 03/07/2023 03/07/2023 03/07/2023 1:20 PM CDT Rule Out COVID-19 12/26/2023 12/26/2023 12/26/2023 9:50 AM CDT Assessment Noted Time PHQ-9 Depression Total Score: 2 04/02/20 21 10:19 AM CDT documented as of this encounter Care Teams Die Stamper Relationship Specialty Start Date End Date Marija Edgar APRN SENIOR SHAREPOINT DEVELOPER PCP - General Nurse Practitioner 04/30/20 04/14/23 Esha Grimm PA-C [address] [place] [address] PCP - General Family Medicine 05/04/23 Lita Oseguera Personal Advocate & Liaison (PAL) 02/28/20 03/27/23 Marija Edgar APRN SENIOR SHAREPOINT DEVELOPER Assigned PCP 06/08/20 04/29/23 Mynor Broussard MD [address] [address] Assigned Surgical Provider 06/01/20 11/28/21 Keisha Dotson MD 909 [place] [address] Assigned Neuroscience Provider 06/04/20 04/01/23 Galo Burrell MD Assigned Heart and Vascular Provider 10/05/20 04/02/22 Diana Desir, [facility] [address] [place] [address] Pharmacist Pharmacist 04/17/21 Rain Galaviz PA-C [address] [place] [address] DR RAZO [address] [place] [address] Physician Pin Attacher Dermatology 04/28/21 Summer Lara MD 606 [address] [address] Assigned OBGYN Provider 05/31/2103/12/ 2 Tavia Wyatt MD 606 24[place], [place] [address] Dermatology 07/14/21 Johnny Murillo MD [address] [place] [address] Assigned Musculoskeletal Provider 08/30/21 03/17/22 Erica Farrell APRN SENIOR SHAREPOINT DEVELOPER 6405 [facility] [address] [place] [address] Nurse Practitioner Cardiovascular Disease 09/09/21 Tavia Wyatt MD Assigned Surgical Provider 11/29/21 05/07/22 Diana Desir, [facility] 3033 [place] [address] Assigned MTM Pharmacist 01/02/22 Rich Barrett MD [address] 311915 Physician Ophthalmology 01/21/22 Neil Kent MD 500 [place], [place] [address]345 Dermatology 02/24/22 Roney Story DPM [address] [facility] 300 [place] [address] Assigned Musculoskeletal Provider 03/20/22 08/13/22 Erica Farrell APRN SENIOR SHAREPOINT DEVELOPER 1700 [place] [address] Assigned Heart and Vascular Provider 04/03/22 04/16/22 Diana Desir, [facility] 3033 [place] [address] Assigned MTM Pharmacist 04/07/22 Jelena David OD [address] [facility] [place] [address] Assigned Surgical Provider 05/08/22 10/08/22 Galo Burrell MD Assigned Heart and Vascular Provider 04/17/22 06/11/22 Livan Sharif MD [address], [facility] [address] [place] 986765 Cardiovascular Disease 05/14/22 Livan Sharif MD [address], [facility] [address] [place] 8[address]45 Assigned Heart and Vascular Provider 06/12/22 07/23/22 Catherine Cm MD [address] [facility]00 [place] 273835 Cardiovascular Disease 07/21/22 Valery Veronica, PAUcheC [address] [place] [address] 241765 Physician Pin Attacher Dermatology 07/21/22 Catherine Cm MD [address] [facility] [address] [place] 236915 Assigned Heart and Vascular Provider 07/24/22 11/05/22 Johnny Murillo MD [address] 319734 Assigned Musculoskeletal Provider 08/14/22 10/08/22 Brea Quinn APRN SENIOR SHAREPOINT DEVELOPER [address] [place] [address] 122755 Nurse Practitioner Dermatology 09/21/22 Brea Quinn, WELFARE INTERVIEWER SENIOR SHAREPOINT DEVELOPER [address] [place] 148722 Assigned Surgical Provider 10/09/22 [place] [address] [facility] 300 [place] [address] Assigned Musculoskeletal Provider 10/09/22 Livan Sharif MD [address], [facility] [address] [place] 487455 Assigned Heart and Vascular Provider 11/06/22 11/12/22 Catherine Cm MD [address] [place] [address] Assigned Heart and Vascular Provider 11/13/22 05/27/23 JuanSydnie malik RN Personal Advocate & Liaison (PAL) Family Medicine 03/28/23 07/31/23 Alfonso Renteria MD 5775 [facility] 200 [place] [address] Assigned Neuroscience Provider 04/02/23 Cheng Todd PA-C [address] [place] [address] Assigned PCP 04/30/23 07/15/23 Radha Lomeli APRN SENIOR SHAREPOINT DEVELOPER [address] [place] [address] Assigned Heart and Vascular Provider 05/28/23 Jelena David OD 3305 [facility] [place] [address] Ophthalmology 06/15/23 Pao Joseph, RN Personal Advocate & Liaison (PAL) Nurse 08/01/23 11/07/23 Esha Grimm PA-C [address] [place] [phone] Assigned PCP 07/16/23 Valery Veronica PA-C [address] [place] [address] 276765 Physician Pin Attacher Dermatology 09/19/23 Rey Tay MD [address] [place] [address] 668555 MD Gastroenterology 09/20/23 Rocky Zepeda DO [address] [place] [address] 101725 Physician Gastroenterology 09/20/23 Philip Dumont MD [address] [place] [address] 900195 Physician Ophthalmology 09/22/23 Meredith Carrera PA-C [address] [place] [address] 330435 Assigned Gastroenterology Provider 11/01/23 Neil Kent MD [address] [address] Dermatology 11/02/23 [place] [address] RA[address] [place] [address] Neurological Surgery 12/26/23 Audrey Waite, PAUcheC 500 [place] [address] Physician Pin Attacher Dermatology 02/28/24 documented as of this encounter
--- OUTSIDE RECORDS SUMMARY | 2024-03-23 16:04 | XMS_ITS | Encounter Summary ---
Author Organization [facility] Address [address] [place] [address] Care Team Providers Care Optical Goods Drill Operator Name Role Phone Lita Oseguera Unavailable Unavailable Marija Edgar APRN COPPER PLATER Primary Care Provider + Marija Edgar APRN COPPER PLATER Unavailable [phone] Mynor Broussard MD Unavailable [phone] Keisha Dotson MD Unavailable Galo Burrell MD Unavailable Unavailable Diana Desir [facility] Unavailable [phone] Rain Galaviz PA-C Unavailable Summer Lara MD Unavailable [phone] Tavia Wyatt MD Unavailable Unavailable Johnny Murillo MD Unavailable Erica Farrell APRN COPPER PLATER Unavailable Tavia Wyatt MD Unavailable Unavailable Diana Desir [facility] Unavailable [phone] Rich Barrett MD Unavailable [phone] Neil Kent MD Unavailable Roney Story DPM Unavailable [phone] Erica Farrell APRN COPPER PLATER Unavailable Diana Desir [facility] Unavailable [phone] Jelena David OD Unavailable Galo Burrell MD Unavailable Unavailable HoLivan MD Unavailable Livan Sharif MD Unavailable IskoCatherine boothe MD Unavailable + Valery Veronica PA-C Unavailable +[phone] Catherine Cm MD Unavailable + Johnny Murillo MD Unavailable [phone] Brea Quinn JEWEL WAXER COPPER PLATER Unavailable [phone] Brea Quinn JEWEL WAXER COPPER PLATER Unavailable [phone] Jose Francisco Johnson MD Unavailable Livan Sharif MD Unavailable + IsCatherine boothe MD Unavailable + Sydnie Martinez RN Unavailable Unavailable Alfonso Renteria MD Unavailable Esha Grimm-C Primary Care Provider Cheng Todd PA-C Unavailable Radha Lomeli JEWEL WAXER COPPER PLATER Unavailable [phone] Jelena Davide OD Unavailable Pao Joseph RN Unavailable Unavailable Esha Grimm-C Unavailable [phone] Valery Veronica PA-C Unavailable [phone] Rey Tay MD Unavailable Rocky Zepeda DO Unavailable Philip Dumont MD Unavailable [phone] Meredith Carrera PA-C Unavailable [phone] Neil Kent MD Unavailable Juan Pablo Emmanuel MD Unavailable [phone] Audrey Waite PA-C Unavailable [phone] Encounter Details Date Type Department Care Team (Late st Contact Info) Description 10/28/2021 MyC Medical Advice [facility] Heart [facility] [address] [facility] [address] [place] [address] Erica Farrell APRN COPPER PLATER 1700 [place] [address] Social History Tobacco Use Types Packs/Day Years [...] How often do you attend quaker or restorationist serv ices? Never 09/22/2021 Do [...] Answer Date Recorded PHQ-2 Score 2 09/22/2021 [facility] Hospiceat ional [facility] - Occupational Stress Questionnaire Answer Date Recorded [...] in a intermediate (including now)? No 09/22/2021 [place] Depression Scale Answer Date Recorded [place] Depression Score 5 01/14/2021 Last EPDS Self [...] Visit [facility] Spine and Neurosurgery [address] [facility] [address] [place] [address] Ebony Cid APRN COPPER PLATER 500 [place] [address] 03/27/2024 11:00 AM CDT Office Visit [facility] Keven [place] [address] [place] [phone] Jelena David, OD [address] [facility] [place] [address] 03/29/2024 3:30 PM CDT Therapy Visit [facility] Rehabilitation Services [address] [place] [phone] Ingris Thompson, PT [facility] [address] [facility] [address] [place], [place] [address] 04/05/2024 2:10 PM CDT Therapy Visit [facility] Rehabilitation Services [place] [address] [facility] [address] [place] [phone] Ingris Thompson, PT [facility] [address] [facility] [address] [place], [place] [address] 04/19/2024 2:45 PM CDT Office Visit [address] [phone] Audrey Waite PA-C [address] [facility] [address], [facility] 603 [place], [place] 0[address] 05/08/2024 1:30 PM CDT Office Visit [facility] [address] [place] [phone] Lauren Claudio PA-C [address] [place], [place] [phone] Esha Grimm PA-C [address] [place] [address] 06/21/2024 2:00 PM ERADICATOR Office Visit [facility] Neurology [facility] - [place] [address] [place] [address], [address] [place] [address] [place] [address] [place] [address] Johnny Penn MD 7945 [place] [address] documented as of this encounter Visit Diagnoses Not on filedocumented in this encounter Additional Health Concerns Infection Onset Date Last Indicated Resolved Time Rule Out COVID-19 12/18/2021 12/18/2021 12/19/2021 11:34 AM CDT Rule Out COVID-19 02/24/2022 02/24/2022 02/25/2022 1:08 PM CDT Rule Out COVID-19 04/26/2022 04/26/2022 04/26/2022 6:47 AM CDT Rule Out COVID-19 05/17/2022 05/17/2022 05/17/2022 10:20 PM ERADICATOR Rule Out COVID-19 06/09/2022 06/09/2022 06/09/2022 9:35 AM ERADICATOR COVID-19 06/09/2022 06/09/2022 06/30/2022 11:4 1 PM ERADICATOR Rule Out COVID-19 11/10/2022 11/10/2022 11/11/2022 12:17 PM CDT Rule Out COVID-19 03/07/2023 03/07/2023 03/07/2023 1:20 PM CDT Rule Out COVID-19 12/26/2023 12/26/2023 12/26/2023 9:50 AM CDT Assessment Noted Time PHQ-9 Depression Total Score: 2 04/02/20 21 10:19 AM CDT documented as of this encounter Care Teams Optical Goods Drill Operator Relationship Specialty Start Date End Date Marija Edgar APRN COPPER PLATER PCP - General Nurse Practitioner 04/30/20 04/14/23 Esha Grimm PA-C [address] [place] [address] PCP - General Family Medicine 05/04/23 Lita Oseguera Personal Advocate & Liaison (PAL) 02/28/20 03/27/23 Marija Edgar APRN COPPER PLATER Assigned PCP 06/08/20 04/29/23 Mynor Broussard MD 6363 [facility] 500 [place] [address] Assigned Surgical Provider 06/01/20 11/28/21 Keisha Dotson MD 909 [place] [address] Assigned Neuroscience Provider 06/04/20 04/01/23 Galo Burrell MD Assigned Heart and Vascular Provider 10/05/20 04/02/22 [facility] [address] [place] [address] Pharmacist Pharmacist 04/17/21 Rain Galaviz PA-C [address] [place] [address] [address] [place] [address] Physician Hand Ornament Maker Dermatology 04/28/21 Summer Lara MD [address] [place] [address] Assigned OBGYN Provider 05/31/21 9 2 Tavia Wyatt MD [address] [place] [address] Dermatology 07/14/21 Johnny Murillo MD [address] [facility] [address] [place] [address] Assigned Musculoskeletal Provider 08/30/21 03/17/22 Erica Farrell APRN COPPER PLATER 6405 [facility] [address] [place] [address] Nurse Practitioner Cardiovascular Disease 09/09/21 Tavia Wyatt MD Assigned Surgical Provider 11/29/21 05/07/22 Diana Desir, [facility] 3033 [place] [address] Assigned MTM Pharmacist 01/02/22 Rich Barrett MD [address] [place] [address]885 Physician Ophthalmology 01/21/22 Neil Kent MD 500 [place], [place] 410055 Dermatology 02/24/22 R[place] DPM [address] [facility] [address] [place] [address] Assigned Musculoskeletal Provider 03/20/22 08/13/22 Erica Farrell APRN COPPER PLATER 1700 [place] [address] Assigned Heart and Vascular Provider 04/03/22 04/16/22 Diana Desir, [facility] [address] [place] [address] Assigned MTM Pharmacist 04/07/22 Jelena David OD [address] [facility] [address] Assigned Surgical Provider 05/08/22 10/08/22 Galo Burrell MD Assigned Heart and Vascular Provider 04/17/22 06/11/22 Livan Sharif MD [address], [facility] [address] [place], [place] 6345[address] Cardiovascular Disease 05/14/22 Livan Sharif MD [address], [facility] [address] [place] 0[address]15 Assigned Heart and Vascular Provider 06/12/22 07/23/22 Catherine Cm MD [address] [facility] [place] 607[address] Cardiovascular Disease 07/21/22 Valery Veronica, PA-C [address] [place] [address] 319745 Physician Hand Ornament Maker Dermatology 07/21/22 Catherine Cm MD [address] [facility] [address] [place], [place] 394935 Assigned Heart and Vascular Provider 07/24/22 11/05/22 Johnny Murillo MD [facility][note 3][address] 420214 Assigned Musculoskeletal Provider 08/14/22 10/08/22 Brea Quinn APRN COPPER PLATER [address] [place] [address] 558315 Nurse Practitioner Dermatology 09/21/22 Brea Quinn, JEWEL WAXER COPPER PLATER 64[address] [facility] [place] [address] Assigned Surgical Provider 10/09/22 [place] [address] [address] Assigned Musculoskeletal Provider 10/09/22 Livan Sharif MD [address], [facility] [address] [place] 185795 Assigned Heart and Vascular Provider 11/06/22 11/12/22 Catherine Cm MD [address] [place] [address] [place] [address] Assigned Heart and Vascular Provider 11/13/22 05/27/23 Sydnie Martinez, RN Personal Advocate & Liaison (PAL) Family Medicine 03/28/23 07/31/23 Alfonso Renteria MD 5775 [facility] 200 [place], [place] 590726 Assigned Neuroscience Provider 04/02/23 Cheng Todd PA-C [address] [place] [address] [id number] Assigned PCP 04/30/23 07/15/23 Radha Lomeli APRN COPPER PLATER [address] [place] 667755 Assigned Heart and Vascular Provider 05/28/23 Jelena David OD [address] [facility] [place] [address] MD Ophthalmology 06/15/23 Pao Joseph, RN Personal Advocate & Liaison (PAL) Nurse 08/01/23 11/07/23 Esha Grimm PA-C [address] [place] [phone] Assigned PCP 07/16/23 Valery Veronica PA-C [address] [place] [address] 639805 Physician Hand Ornament Maker Dermatology 09/19/23 Rey Tay MD [address] [place] [address] 525085 MD Gastroenterology 09/20/23 Rocky Zepeda DO [address] [place] [address] 966425 Physician Gastroenterology 09/20/23 Philip Dumont MD [address] [place] [address] 121495 Physician Ophthalmology 09/22/23 Meredith Carrera PA-C [address] [place] [address] 165005 Assigned Gastroenterology Provider 11/01/23 Neil Kent MD [address] [address] Dermatology 11/02/23 [place] [address] RA[address] [place] [address] Neurological Surgery 12/26/23 Audrey Waite PA-C 500 [place], [place] 063935 Physician Hand Ornament Maker Dermatology 02/28/24 documented as of this encounter
--- OUTSIDE RECORDS SUMMARY | 2024-03-23 16:04 | XMS_ITS | Encounter Summary ---
Author Organization [facility] Address [address] [place] [address] 200[address] Care Team Providers Care Retail Greeter Name Role Phone Lita Oseguera Unavailable Unavailable Marija Edgar APRN DAIRY FARMWORKER Primary Care Provider + Marija Edgar APRN DAIRY FARMWORKER Unavailable [phone] Mynor Broussard MD Unavailable [phone] Keisha Dotson MD Unavailable Galo Burrell MD Unavailable Unavailable Diana Desir [facility] Unavailable Rain Galaviz PA-C Unavailable Summer Lara MD Unavailable [phone] Tavia Wyatt MD Unavailable Unavailable Johnny Murillo MD Unavailable [phone] Erica Farrell APRN DAIRY FARMWORKER Unavailable Teresita Bean [facility] Unavailable Tavia Wyatt MD Unavailable Unavailable Diana Desir [facility] Unavailable [phone] Rich Barrett MD Unavailable Neil Kent MD Unavailable Roney StoryM Unavailable [phone] Erica Farrell NIGHT STOCKER DAIRY FARMWORKER Unavailable Diana Desir [facility] Unavailable [phone] Jelena David OD Unavailable [phone] Galo Burrell MD Unavailable Unavailable Livan Sharif MD Unavailable Livan Sharif MD Unavailable + Catherine Cm MD Unavailable + Valery Veronica PA-C Unavailable [phone] Catherine Cm MD Unavailable + Johnny Murillo MD Unavailable [phone] Brea Quinn NIGHT STOCKER DAIRY FARMWORKER Unavailable [phone] Brea Quinn NIGHT STOCKER DAIRY FARMWORKER Unavailable [phone] Jose Francisco Johnson MD Unavailable Livan Sharif MD Unavailable + IsCatherine hobbs MD Unavailable + Sydnie Martinez RN Unavailable Unavailable Alfonso Renteria MD Unavailable + [phone] Esha Grimm PA-C Primary Care Provider Cheng Todd PA-C Unavailable Radha Lomeli NIGHT STOCKER DAIRY FARMWORKER Unavailable [phone] Jelena David OD Unavailable Pao Joseph RN Unavailable Unavailable Esha Grimm PA-C Unavailable [phone] Valery Veronica PA-C Unavailable [phone] Rey Tay MD Unavailable Rocky Zepeda DO Unavailable Philip Dumont MD Unavailable [phone] LorerianaMeredith PA-C Unavailable Neil Kent MD Unavailable Juan Pablo Emmanuel MD Unavailable [phone] Ravindra Audrey Hemant LAYNE Unavailable [phone] Encounter Details Date Type Department Care Team (Late st Contact Info) Description 09/24/[address] [facility] [place] [address] [facility] [address] [place] [address] Teresita Bean, [facility] [address] [place] [address] [place] [address] Social History Tobacco Use [...] How often do you attend bahai or mu-ism serv ices? Never 09/22/2021 Do [...] Answer Date Recorded PHQ-2 Score 2 09/22/2021 [facility] - [...] a senior care (including now)? No 09/22/2021 Pana Depression Scale Answer Date Recorded Pana Depression Score 5 01/14/2021 Last EPDS Self [...] [facility] Spine and Neurosurgery [address] [facility] [address] [place] [phone] Ebony Cid, NIGHT STOCKER [facility] 500 [place] [address] 03/27/2024 11:00 AM CDT Office Visit [facility] [place] [address] [facility] [address] [place] [address] Jelena David, SONJA [address]305 [facility] [place] [address] 03/29/2024 3:30 PM CDT Therapy Visit [facility] Rehabilitation Services [address] [place] [phone] Ingris Tohmpson, PT [facility] 516 [facility] 106 [place], [place] 963125 04/05/2024 2:10 PM CDT Therapy Visit [facility] Rehabilitation Services [place] [address] [facility] [address] [place] [phone] Ingris Thompson, PT [facility] 516 [facility] 106 [place] [address] 04/19/2024 2:45 PM CDT Office Visit [address] [phone] Audrey Waite PA-C 420 [facility] [address], [facility] 603 [place], [place] 287595 05/08/2024 1:30 PM CDT Office Visit [facility] [address] [place] [phone] Lauren Claudio PA-C [address] [place], [place] [phone] Esha Grimm PA-C [address] [place] [address] 06/21/2024 2:00 PM INTERNET MEDIA PLANNER Office Visit [facility] Neurology Clinics - [address], [address] [place] [address] [place] [address] [place], [place] [address] Johnny Penn MD 3463 [place] [address] documented as of this encounter Visit Diagnoses Not on filedocumented in this encounter Additional Health Concerns Infection Onset Date Last Indicated Resolved Time Rule Out COVID-19 12/18/2021 12/18/2021 12/19/2021 11:34 AM CDT Rule Out COVID-19 02/24/2022 02/24/2022 02/25/2022 1:08 PM CDT Rule Out COVID-19 04/26/2022 04/26/2022 04/26/2022 6:47 AM CDT Rule Out COVID-19 05/17/2022 05/17/2022 05/17/2022 10:20 PM INTERNET MEDIA PLANNER Rule Out COVID-19 06/09/2022 06/09/2022 06/09/2022 9:35 AM INTERNET MEDIA PLANNER COVID-19 06/09/2022 06/09/2022 06/30/2022 11:4 1 PM INTERNET MEDIA PLANNER Rule Out COVID-19 11/10/2022 11/10/2022 11/11/2022 12:17 PM CDT Rule Out COVID-19 03/07/2023 03/07/2023 03/07/2023 1:20 PM CDT Rule Out COVID-19 12/26/2023 12/26/2023 12/26/2023 9:50 AM CDT Assessment Noted Time PHQ-9 Depression Total Score: 2 04/02/20 21 10:19 AM CDT documented as of this encounter Care Teams Retail Greeter Relationship Specialty Start Date End Date Marija Edgar APRN CNP PCP - General Nurse Practitioner 04/30/20 04/14/23 Esha Grimm PA-C [address] [address] PCP - General Family Medicine 05/04/23 Lita Oseguera Personal Advocate & Liaison (PAL) 02/28/20 03/27/23 Marija Edgar APRN DAIRY FARMWORKER Assigned PCP 06/08/20 04/29/23 Mynor Broussard MD 6363 [facility] 500 [place] [address] Assigned Surgical Provider 06/01/20 11/28/21 Keisha Dotson MD 909 [place] [address] Assigned Neuroscience Provider 06/04/20 04/01/23 Galo Burrell MD Assigned Heart and Vascular Provider 10/05/20 04/02/22 [facility] [address] [place] [address] Pharmacist Pharmacist 04/17/21 Rain Galaviz PA-C [address] [place] [address] [address] [place] [address] Physician Tree Pruner Dermatology 04/28/21 Summer Lara MD 606 [facility] [place] [address] Assigned OBGYN Provider 05/31/21 2 Tavia Wyatt MD [address] [place] [address] Dermatology 07/14/21 Johnny Murillo MD [address] [facility] [address] [place] [address] Assigned Musculoskeletal Provider 2/20/22 9/7/22 Erica Farrell APRN DAIRY FARMWORKER 6[address] [facility] [address] [place] [address] Nurse Practitioner Cardiovascular Disease 09/09/21 Teresita Bean [facility] [address] [facility] [address] [place] [phone] Pharmacist Pharmacist 09/24/21 09/29/21 Tavia Wyatt MD Assigned Surgical Provider 11/29/21 05/07/22 Diana Desir, [facility] 3033 [place] [address] Assigned MTM Pharmacist 01/02/22 Rich Barrett MD [address] 712435 Physician Ophthalmology 01/21/22 Neil Kent MD 500 [place] [address] Dermatology 02/24/22 [place] [address] [facility] [address] [place] [address] Assigned Musculoskeletal Provider 03/20/22 08/13/22 Erica Farrell APRN DAIRY FARMWORKER 1700 [place] [address] Assigned Heart and Vascular Provider 04/03/22 04/16/22 Diana Desir, [facility] [address] [place] [address] Assigned MTM Pharmacist 04/07/22 Jelena David OD 3305 [facility] [place] [address] Assigned Surgical Provider 05/08/22 10/08/22 Galo Burrell MD Assigned Heart and Vascular Provider 04/17/22 06/11/22 Livan Sharif MD [address], [place] [address] [place], [place] 6474[address] Cardiovascular Disease 05/14/22 Livan Sharif MD [address], [place] [address] [place] 291525 Assigned Heart and Vascular Provider 06/12/22 07/23/22 Catherine Cm MD [address] [facility] [address] [place] [address] Cardiovascular Disease 07/21/22 Valery Veronica, PA-C 909 [place], [place] 819855 Physician Tree Pruner Dermatology 07/21/22 Catherine Cm MD [address] [place] [address] [place] 655345 Assigned Heart and Vascular Provider 07/24/22 11/05/22 Johnny Murillo MD [address] [place] [address] 804017 Assigned Musculoskeletal Provider 08/14/22 10/08/22 Brea Quinn APRN DAIRY FARMWORKER 500 [place] [address] Nurse Practitioner Dermatology 09/21/22 Brea Quinn APRN DAIRY FARMWORKER 6401 [place] [address] Assigned Surgical Provider 10/09/22 [place] [address] [facility] 300 [place] [address] Assigned Musculoskeletal Provider 10/09/22 Livan Sharif MD [address], [facility] [address] [place] [address] Assigned Heart and Vascular Provider 11/06/22 11/12/22 Catherine Cm MD [address] [facility] [address] [place] [address] Assigned Heart and Vascular Provider 11/13/22 05/27/23 Sydnie Martinez RN Personal Advocate & Liaison (PAL) Family Medicine 03/28/23 07/31/23 Alfonso Renteria MD [address] [facility] 200 [place], [place] 779356 Assigned Neuroscience Provider 04/02/23 Cheng Todd PA-C [address] [place] [address] Assigned PCP 04/30/23 07/15/23 Radha Lomeli APRN DAIRY FARMWORKER 6405 [facility] [address] [place], [place] 149855 Assigned Heart and Vascular Provider 05/28/23 Jelena David OD [address] [facility] [place] [place] [address] MD Ophthalmology 06/15/23 Pao Joseph, VJ Personal Advocate & Liaison (PAL) Nurse 08/01/23 11/07/23 Esha Grimm PA-C [address] [place] [phone] Assigned PCP 07/16/23 Valery Veronica PA-C [address] [place] [address] 277745 Physician Tree Pruner Dermatology 09/19/23 Rey Tay MD [address] [place] [address] 761635 MD Gastroenterology 09/20/23 Rocky Zepeda DO [address] [place] [address] 980515 Physician Gastroenterology 09/20/23 Philip Dumont MD [address] [place] [address] 653125 Physician Ophthalmology 09/22/23 Meredith Carrera PA-C [address] [place] [address] 121105 Assigned Gastroenterology Provider 11/01/23 Neil Kent MD [address] [address] Dermatology 11/02/23 [place] [address] [place] [address] 379087 Neurological Surgery 12/26/23 Audrey Waite PA-C 500 [place], [place] 244925 Physician Tree Pruner Dermatology 02/28/24 documented as of this encounter
--- OUTSIDE RECORDS SUMMARY | 2024-03-23 16:04 | XMS_ITS | Encounter Summary ---
Author Organization [facility] Address [address] [place] [address] Care Team Providers Care Manager Molecular Name Role Phone Lita Oseguera Unavailable Unavailable Marija Edgar APRN POWER PLANT OPERATOR APPRENTICE Primary Care Provider + Marija Edgar APRN POWER PLANT OPERATOR APPRENTICE Unavailable [phone] Mynor Broussard MD Unavailable [phone] Keisha Dotson MD Unavailable Galo Burrell MD Unavailable Unavailable Diana Desir [facility] Unavailable [phone] Rain Galaviz PA-C Unavailable Summer Lara MD Unavailable [phone] Tavia Wyatt MD Unavailable Unavailable Johnny Murillo MD Unavailable Erica Farrell APRN POWER PLANT OPERATOR APPRENTICE Unavailable Teresita Bean [facility] Unavailable Tavia Wyatt MD Unavailable Unavailable Diana Desir [facility] Unavailable [phone] Rich Barrett MD Unavailable Neil Kent MD Unavailable Roney StoryM Unavailable [phone] Erica Farrell LEHR STRIPPER POWER PLANT OPERATOR APPRENTICE Unavailable Diana Desir [facility] Unavailable [phone] Jelena David OD Unavailable [phone] Galo Burrell MD Unavailable Unavailable Livan Sharif MD Unavailable Livan Sharif MD Unavailable + Catherine Cm MD Unavailable + Valery Veronica PA-C Unavailable [phone] Catherine Cm MD Unavailable + Johnny Murillo MD Unavailable [phone] Brea Quinn LEHR STRIPPER POWER PLANT OPERATOR APPRENTICE Unavailable [phone] Brea Quinn LEHR STRIPPER POWER PLANT OPERATOR APPRENTICE Unavailable [phone] Jose Francisco Johnson MD Unavailable Livan Sharif MD Unavailable + IsCatherine hobbs MD Unavailable + Sydnie Martinez RN Unavailable Unavailable Alfonso Renteria MD Unavailable + [phone] Esha Grimm PA-C Primary Care Provider Cheng Todd PA-C Unavailable Radha Lomeli LEHR STRIPPER POWER PLANT OPERATOR APPRENTICE Unavailable [phone] Jelena Davdi OD Unavailable Pao Joseph RN Unavailable Unavailable Esha Grimm PA-C Unavailable [phone] Valery Veronica PA-C Unavailable [phone] Rey Tay MD Unavailable Rocky Zepeda DO Unavailable Philip Dumont MD Unavailable [phone] LorerianaMeredith PA-C Unavailable [phone] Neil Kent MD Unavailable Juan Pablo Emmanuel MD Unavailable [phone] RavindraMichaelbere Marcos PA-C Unavailable [phone] Encounter Details Date Type Department Care Team (Late st Contact Info) Description 08/04/2021 [facility] [address] [address] Chikis [facility] Social History Tobacco Use Types Packs/Day Years [...] do you attend chur or protestant services? More than 4 times [...] Answer Date Recorded PHQ-2 Score 0 04/02/2021 [facility] [...] in a alf (including now)? No 08/11/2020 Ransom Depression Scale Answer Date Recorded Ransom Depression Score 5 01/14/2021 Last EPDS Self [...] COVID-19? No / Unsure 08/03/2021 2:24 PM BRAZER CRAWLER TORCH documented as of this encounter Plan of Treatment Upcoming Encounters Date Type Department Care Team (Late st Contact Info) Description 03/26/2024 11:20 AM CDT [facility] Visit [facility] [address] [place] [address] Ebony Cid, [facility] 500 [place] [address] 03/27/2024 11:00 AM CDT [facility] Visit [facility] [place] [address] [place] [phone] Jelena David, SONJA 3305 [facility] [place] [address] 03/29/2024 3:30 PM CDT Therapy Visit [facility] [address] [place] [phone] Ingris Thompson, PT [facility] [address] [facility] 106 [place] [address] 04/05/2024 2:10 PM CDT Therapy Visit [facility] [place] [address] [facility] [address] [place] [phone] Ingris Thompson, PT [facility] [address] [facility] 106 [place], [place] [address]50[address] 04/19/2024 2:45 PM CDT Office Visit [place] [address] [place] [phone] Audrey Waite PA-C 420 [facility] [address], [facility] 603 [place], [place] [address]3285 05/08/2024 1:30 PM CDT Office Visit [facility] [address] [place] [phone] Lauren Claudio PA-C [address] [place], [place] [phone] Esha Grimm PA-C [address] [place] [address] 06/21/2024 2:00 PM BRAZER CRAWLER TORCH Office Visit [facility] [address] [facility], [address] [place] [address] [place] [address] [place] [phone] Johnny Penn MD [address] [facility] [place] [address] documented as of this encounter Visit Diagnoses Not on filedocumented in this encounter Additional Health Concerns Infection Onset Date Last Indicated Resolved Time COVID-19 07/18/2021 07/18/2021 08/08/2021 11:3 9 PM BRAZER CRAWLER TORCH Rule Out COVID-19 12/18/2021 12/18/2021 12/19/2021 11:34 AM CDT Rule Out COVID-19 02/24/2022 02/24/2022 02/25/2022 1:08 PM CDT Rule Out COVID-19 04/26/2022 04/26/2022 04/26/2022 6:47 AM CDT Rule Out COVID-19 05/17/2022 05/17/2022 05/17/2022 10:20 PM BRAZER CRAWLER TORCH Rule Out COVID-19 06/09/2022 06/09/2022 06/09/2022 9:35 AM BRAZER CRAWLER TORCH COVID-19 06/09/2022 06/09/2022 06/30/2022 11:4 1 PM BRAZER CRAWLER TORCH Rule Out COVID-19 11/10/2022 11/10/2022 11/11/2022 12:17 PM CDT Rule Out COVID-19 03/07/2023 03/07/2023 03/07/2023 1:20 PM CDT Rule Out COVID-19 12/26/2023 12/26/2023 12/26/2023 9:50 AM CDT Assessment Noted Time PHQ-9 Depression Total Score: 2 04/02/20 21 10:19 AM CDT documented as of this encounter Care Teams Manager Molecular Relationship Specialty Start Date End Date Marija Edgar APRN CNP PCP - General Nurse Practitioner 04/30/20 04/14/23 Esha Grimm PA-C [address] [place] [address] PCP - General Family Medicine 05/04/23 Lita Oseguear Personal Advocate & Liaison (PAL) 02/28/20 03/27/23 Marija Edgar APRN POWER PLANT OPERATOR APPRENTICE Assigned PCP 06/08/20 04/29/23 Mynor Broussard MD 6363 [facility] 500 [place] [address] Assigned Surgical Provider 06/01/20 11/28/21 Keisha Dotson MD 909 [place] [address] Assigned Neuroscience Provider 06/04/20 04/01/23 Galo Burrell MD Assigned Heart and Vascular Provider 10/05/20 04/02/22 [facility] 3033 [place] [address] Pharmacist Pharmacist 04/17/21 Rain Galaviz PA-C [address] [facility] [address] [place] [address] Physician Paper Sorter Dermatology 04/28/21 Summer Lara MD [address] [place] [address] Assigned OBGYN Provider 05/31/21 9 2 Tavia Wyatt MD 606 [facility] [place] [place] [address] Dermatology 07/14/21 Johnny Murillo MD [address] [facility] [address] [place] [address] Assigned Musculoskeletal Provider 08/30/21 03/17/22 Erica Farrell APRN POWER PLANT OPERATOR APPRENTICE 6[address] [facility] [address] [place] [address] Nurse Practitioner Cardiovascular Disease 09/09/21 Teresita Bean [facility] [address] [facility] [address] [place] [phone] Pharmacist Pharmacist 09/24/21 09/29/21 Tavia Wyatt MD Assigned Surgical Provider 11/29/21 05/07/22 Diana Desir, [facility] 3033 [place] [address] Assigned MTM Pharmacist 01/02/22 Rich Barertt MD [address] [address] Physician Ophthalmology 01/21/22 Neil Kent MD 500 [place], [place] 297215 Dermatology 02/24/22 Roney Story DPM [address] [facility] [address] [place] [address] Assigned Musculoskeletal Provider 03/20/22 08/13/22 Erica Farrell APRN POWER PLANT OPERATOR APPRENTICE 1700 [place] [address] Assigned Heart and Vascular Provider 04/03/22 04/16/22 Diana Desir, [facility] [address] [place], [place] 1367[address] Assigned MTM Pharmacist 04/07/22 Frankie Jelena GarciaSONJA [address] [facility] [place] [address] Assigned Surgical Provider 05/08/22 10/08/22 Galo Burrell MD Assigned Heart and Vascular Provider 04/17/22 06/11/22 Livan Sharif MD [address] [place] [address] Cardiovascular Disease 05/14/22 Livan Sharif MD [address], [address] [place] 363235 Assigned Heart and Vascular Provider 06/12/22 07/23/22 Catherine Cm MD [address] [place] 049385 Cardiovascular Disease 07/21/22 Valery Veronica, PA-C 909 [place], [place] 249[address] Physician Paper Sorter Dermatology 07/21/22 Catherine Cm MD [address] [place] 308405 Assigned Heart and Vascular Provider 07/24/22 11/05/22 Johnny Murillo MD [facility] [address] [place] [address] Assigned Musculoskeletal Provider 08/14/22 10/08/22 Brea Quinn APRN POWER PLANT OPERATOR APPRENTICE 500 [place] [address] Nurse Practitioner Dermatology 09/21/22 Brea Quinn APRN POWER PLANT OPERATOR APPRENTICE 6401 [place], [place] 185332 Assigned Surgical Provider 10/09/22 [place] [address] [facility] 300 [place] [address] Assigned Musculoskeletal Provider 10/09/22 Livan Sharif MD [address], [facility] [address] [place] [address] Assigned Heart and Vascular Provider 11/06/22 11/12/22 Catherine Cm MD [address] [facility] [address] [place] [address] Assigned Heart and Vascular Provider 11/13/22 05/27/23 Sydnie Martinez RN Personal Advocate & Liaison (PAL) Family Medicine 03/28/23 07/31/23 Alfonso Renteria MD 5775 [facility] 200 [place], [place] 932736 Assigned Neuroscience Provider 04/02/23 Cheng Todd PA-C [address] [place] [address] Assigned PCP 04/30/23 07/15/23 Radha Lomeli APRN POWER PLANT OPERATOR APPRENTICE 6405 [facility] [place], [place] 7[address] Assigned Heart and Vascular Provider 05/28/23 Jelena David OD [address] [facility] [place] [address] MD Ophthalmology 06/15/23 Pao Joseph, VJ Personal Advocate & Liaison (PAL) Nurse 08/01/23 11/07/23 Esha Grimm PA-C [address] [place] [phone] Assigned PCP 07/16/23 Valery Veronica PA-C [address] [place] [address] Physician Paper Sorter Dermatology 09/19/23 Rey Tay MD [address] [place] [address] 260575 MD Gastroenterology 09/20/23 Rocky Zepeda DO [address] [place] [address] 929875 Physician Gastroenterology 09/20/23 Philip Dumont MD [address] [place] [address] 936295 Physician Ophthalmology 09/22/23 Meredith Carrera PA-C [address] [place] [address] 122415 Assigned Gastroenterology Provider 11/01/23 Neil Kent MD [address] [address] Dermatology 11/02/23 [place] [address] 789547 Neurological Surgery 12/26/23 Audrey Waite PAUcheC 500 [place], [place] 469[address] Physician Paper Sorter Dermatology 02/28/24 documented as of this encounter
--- OUTSIDE RECORDS SUMMARY | 2024-03-23 16:04 | XMS_ITS | Encounter Summary ---
Author Organization [facility] Address [address] [place] [address] Care Team Providers Care Aircraft Mechanic Name Role Phone Lita Oseguera Unavailable Unavailable Marija Edgar APRN LABEL CUTTER Primary Care Provider + Marija Edgar APRN LABEL CUTTER Unavailable [phone] Mynor Broussard MD Unavailable [phone] Keisha Dotson MD Unavailable Galo Burrell MD Unavailable Unavailable Diana Desir [facility] Unavailable [phone] Rain Galaviz PA-C Unavailable [phone] Summer Lara MD Unavailable [phone] Tavia Wyatt MD Unavailable Unavailable Johnny Murillo MD Unavailable Erica Farrell APRN LABEL CUTTER Unavailable Teresita Bean [facility] Unavailable Tavia Wyatt MD Unavailable Unavailable Diana Desir [facility] Unavailable [phone] Rich Barrett MD Unavailable Neil Kent MD Unavailable Roney StoryM Unavailable [phone] Erica Farrell UTILITY SUPERVISOR BOAT AND PLANT LABEL CUTTER Unavailable Diana Desir [facility] Unavailable [phone] Jelena David OD Unavailable [phone] Galo Burrell MD Unavailable Unavailable Livan Sharif MD Unavailable Livan Sharif MD Unavailable + Catherine Cm MD Unavailable + Valery Veronica PA-C Unavailable [phone] Catherine Cm MD Unavailable + Johnny Murillo MD Unavailable [phone] Brea Quinn UTILITY SUPERVISOR BOAT AND PLANT LABEL CUTTER Unavailable [phone] Brea Quinn UTILITY SUPERVISOR BOAT AND PLANT LABEL CUTTER Unavailable [phone] Jose Francisco Johnson MD Unavailable Livan Sharif MD Unavailable + IsCatherine hobbs MD Unavailable + Sydnie Martinez RN Unavailable Unavailable Alfonso Renteria MD Unavailable + [phone] Esha Grimm PA-C Primary Care Provider Cheng Todd PA-C Unavailable Radha Lomeli UTILITY SUPERVISOR BOAT AND PLANT LABEL CUTTER Unavailable [phone] Jelena David OD Unavailable Pao Joseph RN Unavailable Unavailable Esha Grimm PA-C Unavailable [phone] Valery Veronica PA-C Unavailable [phone] Rey Tay MD Unavailable Rocky Zepeda DO Unavailable Philip Dumont MD Unavailable [phone] Meredith Carrera PA-C Unavailable [phone] Neil Kent MD Unavailable Juan Pablo Emmanuel MD Unavailable [phone] Audrey Waite PA-C Unavailable [phone] Encounter Details Date Type Department Care Team [...] in a retirement (including now)? No 08/11/2020 [place]stead Depression Scale Answer Date Recorded Al[place] Depression Score 5 01/14/2021 Last EPDS Self [...] COVID-19? No / Unsure 09/02/2021 12:26 PM NETWORK SYSTEMS CONSULTANT documented as of this encounter Plan of Treatment Upcoming Encounters Date Type Department Care Team (Late st Contact Info) Description 03/26/2024 11:20 AM CDT Office Visit [facility] Spine and Neurosurgery [address] [facility] [address] [place] [address] Ebony Cid, [facility] 500 [place], [place] [address] 03/27/2024 11:00 AM CDT Office Visit [facility] Keven German [address] [facility] [address] [place] [phone] Jelena David, [address]305 [facility] [place] [address] 03/29/2024 3:30 PM CDT Therapy Visit [facility] Rehabilitation Services [place] [address] [place] [address] [address] [place] [phone] Ingris Thompson, PT [facility] 516 [facility] 106 [place] [address] 04/05/2024 2:10 PM CDT Therapy Visit [facility] [place] [address] [facility] [address] [place] [phone] Ingris Thompson, PT [facility] 516 [facility] SE [facility] 106 [place], [place] [address] 04/19/2024 2:45 PM CDT Office Visit [facility] 830 [place] [phone] Audrey Waite PA-C 420 [facility] [address], [facility] 603 [place], [place] [address] 05/08/2024 1:30 PM CDT Office Visit [facility] [address] [place] [address] Lauren Claudio PA-C [address] [place], [place] [phone] Esha Grimm PA-C [address] [place] [phone] 06/21/2024 2:00 PM NETWORK SYSTEMS CONSULTANT Office Visit [facility] Neurology Clinics - [address], [address] [place] [phone] [place] [address] [place], [place] [phone] Johnny Penn MD 6512 [place], [place] [phone] documented as of this encounter Visit Diagnoses Not on filedocumented in this encounter Additional Health Concerns Infection Onset Date Last Indicated Resolved Time Rule Out COVID-19 12/18/2021 12/18/2021 12/19/2021 11:34 AM CDT Rule Out COVID-19 02/24/2022 02/24/2022 02/25/2022 1:08 PM CDT Rule Out COVID-19 04/26/2022 04/26/2022 04/26/2022 6:47 AM CDT Rule Out COVID-19 05/17/2022 05/17/2022 05/17/2022 10:20 PM NETWORK SYSTEMS CONSULTANT Rule Out COVID-19 06/09/2022 06/09/2022 06/09/2022 9:35 AM NETWORK SYSTEMS CONSULTANT COVID-19 06/09/2022 06/09/2022 06/30/2022 11:4 1 PM NETWORK SYSTEMS CONSULTANT Rule Out COVID-19 11/10/2022 11/10/2022 11/11/2022 12:17 PM CDT Rule Out COVID-19 03/07/2023 03/07/2023 03/07/2023 1:20 PM CDT Rule Out COVID-19 12/26/2023 12/26/2023 12/26/2023 9:50 AM CDT Assessment Noted Time PHQ-9 Depression Total Score: 2 04/02/20 10:19 AM CDT documented as of this encounter Care Teams Aircraft Mechanic Relationship Specialty Start Date End Date Marija Edgar APRN LABEL CUTTER PCP - General Nurse Practitioner 04/30/20 04/14/23 Esha Grimm PA-C [address] [place] [address] PCP - General Family Medicine 05/04/23 Lita Oseguera Personal Advocate & Liaison (PAL) 02/28/20 03/27/23 Marija Edgar APRN LABEL CUTTER Assigned PCP 06/08/20 04/29/23 Mynor Broussard MD 6363 [facility] [address] 500 [place] [address] Assigned Surgical Provider 06/01/20 11/28/21 Keisha Dotson MD 909 [place] [address] Assigned Neuroscience Provider 06/04/20 04/01/23 Galo Burrell MD Assigned Heart and Vascular Provider 10/05/20 04/02/22 [facility] 3033 [place] [address] Pharmacist Pharmacist 04/17/21 Rain Galaviz PA-C [address] [place] [address] [address] [place] [address] Physician Strawberry Grower Dermatology 04/28/21 Summer Lara MD [address] [place] [address] Assigned OBGYN Provider 05/31/21 2 Tavia Wyatt MD [address] [place] [address] Dermatology 07/14/21 Johnny Murillo MD [address] [place] [address] Assigned Musculoskeletal Provider 08/30/21 03/17/22 Erica Farrell APRN LABEL CUTTER 6405 [facility] [address] [place] [address] Nurse Practitioner Cardiovascular Disease 09/09/21 Teresita Bean, [facility] [address] [place] [phone] Pharmacist Pharmacist 09/24/21 09/29/21 Tavia Wyatt MD Assigned Surgical Provider 11/29/21 05/07/22 Diana Desir, [facility] [address] [place] [address] Assigned MTM Pharmacist 01/02/22 Rich Barrett MD [address] 9778[address] Physician Ophthalmology 01/21/22 eNil Kent MD 500 [place], [place] 8[address]25 Dermatology 02/24/22 Roney Story DPM [address] [facility] [address] [place] [address] Assigned Musculoskeletal Provider 03/20/22 08/13/22 Erica Farrell APRN LABEL CUTTER 1700 [place] [address] Assigned Heart and Vascular Provider 04/03/22 04/16/22 Diana Desir, [facility] [address] [place] [address] Assigned MTM Pharmacist 04/07/22 Jelena David OD [address] [place] [address] Assigned Surgical Provider 05/08/22 10/08/22 Galo Burrell MD Assigned Heart and Vascular Provider 04/17/22 06/11/22 Livan Sharif MD [address], [facility] [address] [place], [place] [address] Cardiovascular Disease 05/14/22 Livan Sharif MD [address], [facility] [address] [place] [address] Assigned Heart and Vascular Provider 06/12/22 07/23/22 Catherine Cm MD [address] [facility]00 [place] [address] Cardiovascular Disease 07/21/22 Valery Veronica, PA-C [address] [place] [address] Physician Strawberry Grower Dermatology 07/21/22 Catherine Cm MD [address] [facility]00 [place] [address] Assigned Heart and Vascular Provider 07/24/22 11/05/22 Johnny Murillo MD [address] [place] [address] Assigned Musculoskeletal Provider 08/14/22 10/08/22 Brea Quinn APRN LABEL CUTTER [address] [place] [address] Nurse Practitioner Dermatology 09/21/22 Brea Quinn APRN LABEL CUTTER 6401 [facility] [place] [address] Assigned Surgical Provider 10/09/22 [place] [address] [facility] 300 [place] [address] Assigned Musculoskeletal Provider 10/09/22 Livan Sharif MD [address] [facility] [address] [place] [address] Assigned Heart and Vascular Provider 11/06/22 11/12/22 Catherine Cm MD [address] [facility]00 [place] [address] Assigned Heart and Vascular Provider 11/13/22 05/27/23 Sydnie Martinez RN Personal Advocate & Liaison (PAL) Family Medicine 03/28/23 07/31/23 Alfonso Renteria MD 5775 [facility] 200 [place] [address] Assigned Neuroscience Provider 04/02/23 Cheng Todd PA-C [address] [place] [address] [id number] Assigned PCP 04/30/23 07/15/23 Radha Lomeli APRN LABEL CUTTER [address] [place] [address]89115 Assigned Heart and Vascular Provider 05/28/23 Jelena David OD [facility] [place] [address] MD Ophthalmology 06/15/23 Pao Joseph, RN Personal Advocate & Liaison (PAL) Nurse 08/01/23 11/07/23 Esha Grimm PA-C [address] [place] [address] Assigned PCP 07/16/23 Valery Veronica PA-C [address] [place] [address] 820835 Physician Strawberry Grower Dermatology 09/19/23 Rey Tay MD [address] [place] [address] Gastroenterology 09/20/23 Rocky Zepeda DO [address] [place] [address] 174135 Physician Gastroenterology 09/20/23 Philip Dumont MD [address] [place] [address]7725 Physician Ophthalmology 09/22/23 Meredith Carrera PA-C [address] [place] [address] 386615 Assigned Gastroenterology Provider 11/01/23 Neil Kent MD [address] [address] Dermatology 11/02/23 [place] [address] [place] [address] [address] Neurological Surgery 12/26/23 Audrey Waite, PAUcheC 500 [place], [place] [address] Physician Strawberry Grower Dermatology 02/28/24 documented as of this encounter
--- OUTSIDE RECORDS SUMMARY | 2024-03-23 16:04 | XMS_ITS | Encounter Summary ---
Author Organization [facility] Address [address] [place] [address] Care Team Providers Care Business Excellence Leader Name Role Phone Lita Oseguera Unavailable Unavailable Marija Edgar APRN EMBROIDERY DESIGNER Primary Care Provider + Marija Edgar APRN EMBROIDERY DESIGNER Unavailable [phone] Mynor Broussard MD Unavailable [phone] Keisha Dotson MD Unavailable Galo Burrell MD Unavailable Unavailable Diana Desir [facility] Unavailable Rain Galaviz PA-C Unavailable [phone] Summer Lara MD Unavailable [phone] Tavia Wyatt MD Unavailable Unavailable Johnny Murillo MD Unavailable Erica Farrell APRN EMBROIDERY DESIGNER Unavailable Tavia Wyatt MD Unavailable Unavailable Diana Desir [facility] Unavailable [phone] Rich Barrett MD Unavailable [phone] Neil Kent MD Unavailable Roney Story DPM Unavailable [phone] Erica Farrell APRN EMBROIDERY DESIGNER Unavailable Diana Desir [facility] Unavailable [phone] Jelena David OD Unavailable Galo Burrell MD Unavailable Unavailable HoLivan MD Unavailable Livan Sharif MD Unavailable IskoCatherine boothe MD Unavailable + Valery Veronica PA-C Unavailable +[phone] Catherine Cm MD Unavailable + Johnny Murillo MD Unavailable [phone] Brea Quinn CHILD CARE DIRECTOR EMBROIDERY DESIGNER Unavailable [phone] Brea Quinn CHILD CARE DIRECTOR EMBROIDERY DESIGNER Unavailable [phone] Jose Francisco Johnson MD Unavailable Livan Sharif MD Unavailable + IsCatherine boothe MD Unavailable + Sydnie Martinez RN Unavailable Unavailable Alfonso Renteria MD Unavailable Esha Grimm-C Primary Care Provider Cheng Todd PA-C Unavailable Radha Lomeli CHILD CARE DIRECTOR EMBROIDERY DESIGNER Unavailable [phone] Jelena Davide OD Unavailable Pao Joseph RN Unavailable Unavailable Esha Grimm-C Unavailable [phone] Valery Veronica PA-C Unavailable [phone] Rey Tay MD Unavailable Rocky Zepeda DO Unavailable Philip Dumont MD Unavailable [phone] Meredith Carrera PA-C Unavailable [phone] Neil Kent MD Unavailable Juan Pablo Emmanuel MD Unavailable [phone] Audrey Waite PA-C Unavailable [phone] Reason for Visit * Reason Onset Date Comments Refill Request 10/31/2021 sertraline Encounter Details Date Type Department Care Team (Late st Contact Info) Description 10/31/2021 Refill M [facility] [address] [place] [address] Marija Edgar APRN EMBROIDERY DESIGNER [address] [facility] [place] [facility] [address] Refill Request (sertraline) Social History Tobacco Use [...] How often do you attend confucianist or scientologist serv ices? Never 09/22/2021 Do you belong [...] Date Recorded PHQ-2 Score 2 09/22/2021 [facility] of Occupat ional [facility] - Occupational Stress Questionnaire Answer Date [...] a care home (including now)? No 09/22/2021 [place] Depression Scale Answer Date Recorded [place] Depression Score 5 01/14/2021 Last EPDS [...] - 11/02/2021 8:58 AM CDT Approved per [facility] CPA. Luis Alberto ValderramaD Medication Therapy Management Provider, [facility] Pager: [phone] * Telephone Encounter - Aleyda Scott RN [...] daily. Pt has follow up tomorrow with [facility] pharmacist to continue to work on taper. Appointments in Next Year Nov 03, 2021 3:30 PM Pharmacist Visit with Diana Desir [facility] ([facility] [place] ) [phone] Informed patient that will route refill request [...] can be reached at: Other phone number: [phone] Best Time: ANYTIME Can we leave a detailed message on this number? YES Call taken on 10/31/2021 at 10:31 AM by Amalia Deluca documented in this encounter Plan of Treatment Upcoming Encounters Date Type Department Care Team (Late st Contact Info) Description 03/26/2024 11:20 AM CDT Office Visit [facility] Spine and Neurosurgery [address] [facility] [address] [place] [address] Ebony Cid, CHILD CARE DIRECTOR [facility] 500 [place] [address] 03/27/2024 11:00 AM CDT Office Visit [facility] [place] [address] [facility] [address] [place] [phone] Jelena David, [place] [address] [facility] [place] [address] 03/29/2024 3:30 PM CDT Therapy Visit [facility] [place] [address] [place] [address] [address] [place] [phone] Ingris Thompson, PT [facility] 516 [facility] 106 [place], [place] [address] 04/05/2024 2:10 PM CDT Therapy Visit [facility] [place] [address] [facility] 160 [place] [phone] Ingris Thompson, PT [facility] 6 [facility] 106 [place] [address] 04/19/2024 2:45 PM CDT Office Visit [address] [phone] Audrey Waite PA-C 420 [facility] [address], [facility] 603 [place], [place] [address] 05/08/2024 1:30 PM CDT Office Visit [facility] [address] [place] [address] Lauren Claudio PA-C [address] [place], [place] [phone] Esha Grimm PA-C [address] [place] [address] 06/21/2024 2:00 PM MERCHANDISE DISPLAYER Office Visit [facility] [place] [address] [place] [address], [address] [place] [address] [place] [address] [place], [place] [phone] Johnny Penn MD [address] [place] [address] documented as of this encounter Visit Diagnoses [...] Out COVID-19 05/17/2022 05/17/2022 05/17/2022 10:20 PM MERCHANDISE DISPLAYER Rule Out COVID-19 06/09/2022 06/09/2022 06/09/2022 9:35 AM MERCHANDISE DISPLAYER COVID-19 06/09/2022 06/09/2022 06/30/2022 11:4 1 PM MERCHANDISE DISPLAYER Rule Out COVID-19 11/10/2022 11/10/2022 11/11/2022 12:17 PM CDT Rule Out COVID-19 03/07/2023 03/07/2023 03/07/2023 1:20 PM CDT Rule Out COVID-19 12/26/2023 12/26/2023 12/26/2023 9:50 AM CDT Assessment Noted Time PHQ-9 Depression Total Score: 2 04/02/20 21 10:19 AM CDT documented as of this encounter Care Teams Business Excellence Leader Relationship Specialty Start Date End Date Marija Edgar APRN CNP PCP - General Nurse Practitioner 04/30/20 04/14/23 Esha Grimm PA-C [address] [place] [place] [phone] PCP - General Family Medicine 05/04/23 Lita Oseguera Personal Advocate & Liaison (PAL) 02/28/20 03/27/23 Marija Edgar APRN EMBROIDERY DESIGNER Assigned PCP 06/08/20 04/29/23 Mynor Broussard MD 6363 [facility] 500 [place] [id number] Assigned Surgical Provider 06/01/20 11/28/21 Keisha Dotson MD 909 [place], [place] 2630[address] Assigned Neuroscience Provider 06/04/20 04/01/23 Galo Burrell MD Assigned Heart and Vascular Provider 10/05/20 04/02/22 [facility] [address] [place] [address] Pharmacist Pharmacist 04/17/21 Rain Galaviz PA-C [address] [facility] [address] [place] [address] Physician Belt Line Feeder Dermatology 04/28/21 Summer Lara MD [address] [place] [address] Assigned OBGYN Provider 05/31/21 2 Tavia Wyatt MD [address] [place] [address] Dermatology 07/14/21 Johnny Murillo MD [facility] [facility] [address] [place] [address] Assigned Musculoskeletal Provider 08/30/21 03/17/22 Erica Farrell APRN EMBROIDERY DESIGNER 6405 [facility] [address] [place] [address] Nurse Practitioner Cardiovascular Disease 09/09/21 Tavia Wyatt MD Assigned Surgical Provider 11/29/21 05/07/22 Diana Desir, [facility] 3033 [place] [address] Assigned MTM Pharmacist 01/02/22 Rich Barrett MD [address] 3047[address] Physician Ophthalmology 01/21/22 Neil Kent MD 500 [place], [place] 84[address]25 Dermatology 02/24/22 [place] [address] [facility] 300 [place] [address] Assigned Musculoskeletal Provider 03/20/22 08/13/22 Erica Farrell APRN EMBROIDERY DESIGNER 1700 [place] [address] Assigned Heart and Vascular Provider 04/03/22 04/16/22 Diana Desir, [facility] 3033 [place] [address] Assigned MTM Pharmacist 04/07/22 Frankie Jelena TempletonSONJA woods [address] [facility] [place] [address] Assigned Surgical Provider 05/08/22 10/08/22 Galo Burrell MD Assigned Heart and Vascular Provider 04/17/22 06/11/22 Livan Sharif MD [address] [place] [address] Cardiovascular Disease 05/14/22 Livan Sharif MD [address] [place] [address] [place] [address] Assigned Heart and Vascular Provider 06/12/22 07/23/22 Catherine Cm MD [address] [address] [place] [address] Cardiovascular Disease 07/21/22 Valery Veronica, PA-C 909 [place] [address] Physician Belt Line Feeder Dermatology 07/21/22 Catherine Cm MD [address] [address] [place] [address] Assigned Heart and Vascular Provider 07/24/22 11/05/22 Johnny Murillo MD [address] 219[address] Assigned Musculoskeletal Provider 08/14/22 10/08/22 Brea Quinn APRN EMBROIDERY DESIGNER 500 [place] [address] Nurse Practitioner Dermatology 09/21/22 Brea Quinn APRN EMBROIDERY DESIGNER 6401 [facility] [place] [address] Assigned Surgical Provider 10/09/22 [place] [address] [address] [facility] [address] [place] [address] Assigned Musculoskeletal Provider 10/09/22 Livan Sharif MD [address], [facility] [address] [place] [address] Assigned Heart and Vascular Provider 11/06/22 11/12/22 Catherine Cm MD [address] [facility] [address] [place] 920825 Assigned Heart and Vascular Provider 11/13/22 05/27/23 Sydnie Martinez, VJ Personal Advocate & Liaison (PAL) Family Medicine 03/28/23 07/31/23 Alfonso Renteria MD 5775 [facility] 200 [place] [address] Assigned Neuroscience Provider 04/02/23 Cheng Todd PA-C [address] [place] [address] Assigned PCP 04/30/23 07/15/23 Radha Lomeli APRN EMBROIDERY DESIGNER [address] [place] [address] Assigned Heart and Vascular Provider 05/28/23 Jelena David OD [address] [facility] [place] [address] MD Ophthalmology 06/15/23 Pao Joseph, RN Personal Advocate & Liaison (PAL) Nurse 08/01/23 11/07/23 Esha Grimm PA-C [address] [place] [phone] Assigned PCP 07/16/23 Valery Veronica PA-C [address] [place] [address] 199235 Physician Belt Line Feeder Dermatology 09/19/23 Rey Tay MD [address] [place] [address] 091105 Gastroenterology 09/20/23 Rocky Zepeda DO [address] [place] [address] 371125 Physician Gastroenterology 09/20/23 Philip Dumont MD [address] [place] [address] 175265 Physician Ophthalmology 09/22/23 Meredith Carrera PA-C [address] [place] [address] Assigned Gastroenterology Provider 11/01/23 Neil Kent MD [address] [place] [address] 031360 Dermatology 11/02/23 [place] [address] [address] Neurological Surgery 12/26/23 Audrey Waite PAUcheC 500 [place], [place] 371445 Physician Belt Line Feeder Dermatology 02/28/24 documented as of this encounter
--- OUTSIDE RECORDS SUMMARY | 2024-03-23 16:04 | XMS_ITS | Encounter Summary ---
Author Organization [facility] Address [address] [place] [address] Care Team Providers Care Winding Inspector Name Role Phone Lita Oseguera Unavailable Unavailable Marija Edgar APRN WOMEN'S MINISTRY DIRECTOR Primary Care Provider + Marija Edgar APRN WOMEN'S MINISTRY DIRECTOR Unavailable [phone] Mynor Broussard MD Unavailable [phone] Keisha Dotson MD Unavailable Galo Burrell MD Unavailable Unavailable Diana Desir [facility] Unavailable [phone] Rain Galaviz PA-C Unavailable Summer Lara MD Unavailable [phone] Tavia Wyatt MD Unavailable Unavailable Johnny Murillo MD Unavailable Erica Farrell APRN WOMEN'S MINISTRY DIRECTOR Unavailable Tavia Wyatt MD Unavailable Unavailable Diana Desir [facility] Unavailable Rich Barrett MD Unavailable [phone] Neil Kent MD Unavailable Roney Story DPM Unavailable [phone] Erica Farrell APRN WOMEN'S MINISTRY DIRECTOR Unavailable Diana Desir [facility] Unavailable [phone] Jelena David OD Unavailable Galo Burrell MD Unavailable Unavailable HoLivan MD Unavailable Livan Sharif MD Unavailable IskoCatherine boothe MD Unavailable + Valery Veronica PA-C Unavailable +[phone] Catherine Cm MD Unavailable + Johnny Murillo MD Unavailable [phone] Brea Quinn POSTAL SUPERVISOR WOMEN'S MINISTRY DIRECTOR Unavailable [phone] Brea Quinn POSTAL SUPERVISOR WOMEN'S MINISTRY DIRECTOR Unavailable [phone] Jose Francisco Johnson MD Unavailable Livan Sharif MD Unavailable + IsCatherine boothe MD Unavailable + Sydnie Martinez RN Unavailable Unavailable Alfonso Renteria MD Unavailable Esha Grimm-C Primary Care Provider Cheng Todd PA-C Unavailable Radha Lomeli POSTAL SUPERVISOR WOMEN'S MINISTRY DIRECTOR Unavailable [phone] Jelena Davide OD Unavailable Pao Joseph RN Unavailable Unavailable Esha Grimm-C Unavailable [phone] Valery Veronica PA-C Unavailable [phone] Rey Tay MD Unavailable Rocky Zepeda DO Unavailable Philip Dumont MD Unavailable [phone] Meredith Carrera PA-C Unavailable [phone] Neil Kent MD Unavailable Juan Pablo Emmanuel MD Unavailable Audrey Waite PA-C Unavailable [phone] Encounter Details Date Type Department Care Team (Late st Contact Info) Description 10/17/2021 MyC Medical Advice [address] [address] Diana Desir, [facility] 3030 [place] [address] Social History Tobacco Use Types [...] How often do you attend adventism or jainism serv ices? Never 09/22/2021 Do you belong [...] Answer Date Recorded PHQ-2 Score 2 09/22/2021 [facility] of Occupat ional [facility] - Occupational Stress Questionnaire Answer Date [...] in a mcc (including now)? No 09/22/2021 [place] Depression Scale Answer Date Recorded [place] Depression Score 5 01/14/2021 Last EPDS Self [...] [facility] [address] [place] [phone] Ebony Cid, ARLENE WOMEN'S MINISTRY DIRECTOR 500 [place] [address] 03/27/2024 11:00 AM CDT Office Visit [facility] [place] [address] [facility] [address] [place] [phone] Jelena David, SONJA 3305 [facility] [place] [address] 03/29/2024 3:30 PM CDT Therapy Visit [facility] Rehabilitation Services [address] [place] [phone] Ingris Thompson, PT [facility] 516 [facility] 106 [place] [address] 04/05/2024 2:10 PM CDT Therapy Visit [facility] Rehabilitation [facility] [place] [address] [facility] [address] [place] [phone] Ingris Thompson, PT [facility] 516 [facility] 106 [place], [place] [address] 04/19/2024 2:45 PM CDT Office Visit [address] [phone] Audrey Waite PA-C 420 [facility] [address], [facility] 603 [place], [place] [address] 05/08/2024 1:30 PM CDT Office Visit [facility] [address] [place] [phone] Lauren Claudio PA-C [address] [place], [place] [phone] Esha Grimm PA-C [address] [place] [address] 06/21/2024 2:00 PM HOME SALES CONSULTANT Office Visit [facility] Neurology [facility]ics - [place] [address] [place] [address], [address] [place] [address] [place] [address] [place] [phone] Johnny Penn MD 1250 [facility] [address] documented as of this encounter Visit Diagnoses Not on filedocumented in this encounter Additional Health Concerns Infection Onset Date Last Indicated Resolved Time Rule Out COVID-19 12/18/2021 12/18/2021 12/19/2021 11:34 AM CDT Rule Out COVID-19 02/24/2022 02/24/2022 02/25/2022 1:08 PM CDT Rule Out COVID-19 04/26/2022 04/26/2022 04/26/2022 6:47 AM CDT Rule Out COVID-19 05/17/2022 05/17/2022 05/17/2022 10:20 PM HOME SALES CONSULTANT Rule Out COVID-19 06/09/2022 06/09/2022 06/09/2022 9:35 AM HOME SALES CONSULTANT COVID-19 06/09/2022 06/09/2022 06/30/2022 11:4 1 PM HOME SALES CONSULTANT Rule Out COVID-19 11/10/2022 11/10/2022 11/11/2022 12:17 PM CDT Rule Out COVID-19 03/07/2023 03/07/2023 03/07/2023 1:20 PM CDT Rule Out COVID-19 12/26/2023 12/26/2023 12/26/2023 9:50 AM CDT Assessment Noted Time PHQ-9 Depression Total Score: 2 04/02/20 21 10:19 AM CDT documented as of this encounter Care Teams Winding Inspector Relationship Specialty Start Date End Date Marija Edgar APRN WOMEN'S MINISTRY DIRECTOR PCP - General Nurse Practitioner 04/30/20 04/14/23 Esha Grimm PA-C [address] [place] [phone] PCP - General Family Medicine 05/04/23 Lita Oseguera Personal Advocate & Liaison (PAL) 02/28/20 03/27/23 Marija Edgar APRN WOMEN'S MINISTRY DIRECTOR Assigned PCP 06/08/20 04/29/23 Mynor Broussard MD 6[address] [facility] [address] [address] Assigned Surgical Provider 06/01/20 11/28/21 Keisha Dotson MD 909 [place] [address] Assigned Neuroscience Provider 06/04/20 04/01/23 Galo Burrell MD Assigned Heart and Vascular Provider 10/05/20 04/02/22 Diana Desir, [facility] [address] [place] [address] Pharmacist Pharmacist 04/17/21 Rain Galaviz PA-C [address] [place] [address] [address] [place] [address] Physician Product Mgmt Dev Manager Dermatology 04/28/21 Summer Lara MD [address] [place] [address] Assigned OBGYN Provider 05/31/21 2 Tavia Wyatt MD 606 [address], [place] [address] Dermatology 07/14/21 Johnny Murillo MD [address] [place] [address] Assigned Musculoskeletal Provider 08/30/21 03/17/22 StoErica pereira APRN WOMEN'S MINISTRY DIRECTOR 6405 [facility] [address] [place] [address] Nurse Practitioner Cardiovascular Disease 09/09/21 Tavia Wyatt MD Assigned Surgical Provider 11/29/21 05/07/22 Diana Desir, [facility] 3033 [place] [address] Assigned MTM Pharmacist 01/02/22 Rich Barrett MD [address] [address] Physician Ophthalmology 01/21/22 Neil Kent MD 500 [place] [address] Dermatology 02/24/22 Roney [place] D[place] [address] [facility] 300 [place] [address] Assigned Musculoskeletal Provider 03/20/22 08/13/22 Erica Farrell APRN WOMEN'S MINISTRY DIRECTOR 1700 [place] [address] Assigned Heart and Vascular Provider 04/03/22 04/16/22 Diana Desir, [facility] 3033 [place] [address] Assigned MTM Pharmacist 04/07/22 Jelena David OD [address] [facility] [place] [address] Assigned Surgical Provider 05/08/22 10/08/22 Galo Burrell MD Assigned Heart and Vascular Provider 04/17/22 06/11/22 Livan Sharif MD [address], [facility] [address] [place], [place] [address] Cardiovascular Disease 05/14/22 Livan Sharif MD [address] [place], [place] 15[address] Assigned Heart and Vascular Provider 06/12/22 07/23/22 Catherine Cm MD [address] [facility] [address] [place], [place] [address] Cardiovascular Disease 07/21/22 Valery Veronica, PAUcheC [address] [place] [address] 974875 Physician Product Mgmt Dev Manager Dermatology 07/21/22 Catherine Cm MD [address] [address] [place], [place] 88[address] Assigned Heart and Vascular Provider 07/24/22 11/05/22 Johnny Murillo MD [facility]2 [address] 795984 Assigned Musculoskeletal Provider 08/14/22 10/08/22 Brea Quinn APRN WOMEN'S MINISTRY DIRECTOR [address] [place] [address] 837715 Nurse Practitioner Dermatology 09/21/22 Brea Quinn, POSTAL SUPERVISOR WOMEN'S MINISTRY DIRECTOR [address] [place] [address] Assigned Surgical Provider 10/09/22 [place] [address] [facility] 300 [place] [address] Assigned Musculoskeletal Provider 10/09/22 Livan Sharif MD [address], [facility] [address] [place] 325775 Assigned Heart and Vascular Provider 11/06/22 11/12/22 Catherine Cm MD [address] [address] [place] [address] Assigned Heart and Vascular Provider 11/13/22 05/27/23 JuanSydnie malik, RN Personal Advocate & Liaison (PAL) Family Medicine 03/28/23 07/31/23 Alfonso Renteria MD 5775 [facility] 200 [place], [place] 8[address] Assigned Neuroscience Provider 04/02/23 Cheng Todd PA-C [address] [place] [address] Assigned PCP 04/30/23 07/15/23 Radha Lomeli, ARLENE WOMEN'S MINISTRY DIRECTOR [address] [place] [address] Assigned Heart and Vascular Provider 05/28/23 Jelena David OD [address]305 [facility] [place] [address] Ophthalmology 06/15/23 Pao Joseph, RN Personal Advocate & Liaison (PAL) Nurse 08/01/23 11/07/23 Esha Grimm PA-C [address] [place] [phone] Assigned PCP 07/16/23 Valery Veronica PA-C [address] [place] [address] 954225 Physician Product Mgmt Dev Manager Dermatology 09/19/23 Rey Tay MD [address] [place] [address] 324635 MD Gastroenterology 09/20/23 Rocky Zepeda DO [address] [place] [address] 504415 Physician Gastroenterology 09/20/23 Philip Dumont MD [address] [place] [address] 815805 Physician Ophthalmology 09/22/23 Meredith Carrera PA-C [address] [place] [address] 344995 Assigned Gastroenterology Provider 11/01/23 Neil Kent MD [address] [address] Dermatology 11/02/23 [place] [address] [place] [address] Neurological Surgery 12/26/23 Audrey Waite, PAUcheC 500 [place] [address] Physician Product Mgmt Dev Manager Dermatology 02/28/24 documented as of this encounter
--- OUTSIDE RECORDS SUMMARY | 2024-03-23 16:04 | XMS_ITS | Encounter Summary ---
Author Organization Railroad Address [address] [place] [address] Care Team Providers Care Registered Radiation Therapist Name Role Phone Lita Oseguera Unavailable Unavailable Marija Edgar APRN CANTEEN MANAGER Primary Care Provider + Marija Edgar APRN CANTEEN MANAGER Unavailable [phone] Mynor Broussard MD Unavailable [phone] Keisha Dotson MD Unavailable Galo Burrell MD Unavailable Unavailable Diana Desir [facility] Unavailable [phone] Rain Galaviz PA-C Unavailable Summer Lara MD Unavailable [phone] Tavia Wyatt MD Unavailable Unavailable Johnny Murillo MD Unavailable Erica Farrell APRN CANTEEN MANAGER Unavailable Teresita Bean [facility] Unavailable Tavia Wyatt MD Unavailable Unavailable Diana Desir [facility] Unavailable [phone] Rich Barrett MD Unavailable Neil Kent MD Unavailable Roney StoryM Unavailable [phone] Erica Farrell PARKING METER ATTENDANT CANTEEN MANAGER Unavailable Diana Desir [facility] Unavailable +[phone] Jelena David OD Unavailable [phone] Galo Burrell MD Unavailable Unavailable Livan Sharif MD Unavailable Livan Sharif MD Unavailable + Catherine Cm MD Unavailable + Valery Veronica PA-C Unavailable [phone] Catherine Cm MD Unavailable + Johnny Murillo MD Unavailable [phone] Brea Quinn PARKING METER ATTENDANT CANTEEN MANAGER Unavailable [phone] Brea Quinn PARKING METER ATTENDANT CANTEEN MANAGER Unavailable [phone] Jose Francisco Johnson MD Unavailable Livan Sharif MD Unavailable + IsCatherine hobbs MD Unavailable + Sydnie Martinez RN Unavailable Unavailable Alfonso Renteria MD Unavailable + [phone] Esha Grimm PA-C Primary Care Provider Cheng Todd PA-C Unavailable Radha Lomeli PARKING METER ATTENDANT CANTEEN MANAGER Unavailable [phone] Jelena David OD Unavailable Pao Joseph RN Unavailable Unavailable Esha Grimm PA-C Unavailable [phone] Valery Veronica PA-C Unavailable [phone] Rey Tay MD Unavailable Rocky Zepeda DO Unavailable Philip Dumont MD Unavailable +[phone] Meredith Carrera PA-C Unavailable [phone] Neil Kent MD Unavailable Juan Pablo Emmanuel MD Unavailable [phone] Audrey Waite PA-C Unavailable [phone] Encounter Details Date Type Department Care Team (Late st Contact Info) Description 09/02/2021 MyC Medical Advice [facility] [id number] [place] [address] Diana Desir, [facility] [address] [place] [address] Social History Tobacco Use Types [...] week 08/07/2020 How often do you attend [facility] or [facility] services? More than 4 times [...] Answer Date Recorded PHQ-2 Score 0 04/02/2021 [facility] of Occupat ional [...] in a mcfp (including now)? No 08/11/2020 [place] Depression Scale Answer Date Recorded [place] Depression Score 5 01/14/2021 Last EPDS Self [...] COVID-19? No / Unsure 09/02/2021 12:26 PM STONEMASON documented as of this encounter Plan of Treatment Upcoming Encounters Date Type Department Care Team (Late st Contact Info) Description 03/26/2024 11:20 AM CDT Office Visit [facility] Spine and Neurosurgery [address] [facility] [address] [place] [address] Ebony Cid, PARKING METER ATTENDANT CANTEEN MANAGER 500 [place] [address] 03/27/2024 11:00 AM CDT Office [facility] [place] [address] [place] [address] Jelena David, [place] [address] [facility] [place] [address] 03/29/2024 3:30 PM CDT Therapy Visit [facility] Rehabilitation Services [address] [place] [phone] Ingris [place], PT [facility] 6 [facility] 106 [place], [place] [address] 04/05/2024 2:10 PM CDT Therapy Visit [facility] Rehabilitation Services [place] [address] [facility] 160 [place] [address] Ingris [place], PT [facility] 6 [facility] 106 [place] [address] 04/19/2024 2:45 PM CDT Office Visit [address] [phone] Audrey Waite PA-C 420 [facility] [address], [facility] 603 [place], [place] [address] 05/08/2024 1:30 PM CDT Office Visit [facility] [address] [place] [address] Lauren Claudio PA-C [address] [place], [place] [phone] Esha Grimm PA-C [address] [place] [address] 06/21/2024 2:00 PM [place] Office Visit [facility] Neurology Clinics - [address], [address] [place] [address] [place] [address] [place], [place] 4[address] Johnny Penn, MD [address] [place] [address] documented as of this encounter Visit Diagnoses Not on filedocumented in this encounter Additional Health Concerns Infection Onset Date Last Indicated Resolved Time Rule Out COVID-19 12/18/2021 12/18/2021 12/19/2021 11:34 AM CDT Rule Out COVID-19 02/24/2022 02/24/2022 02/25/2022 1:08 PM CDT Rule Out COVID-19 04/26/2022 04/26/2022 04/26/2022 6:47 AM CDT Rule Out COVID-19 05/17/2022 05/17/2022 05/17/2022 10:20 PM STONEMASON Rule Out COVID-19 06/09/2022 06/09/2022 06/09/2022 9:35 AM STONEMASON COVID-19 06/09/2022 06/09/2022 06/30/2022 11:4 1 PM STONEMASON Rule Out COVID-19 11/10/2022 11/10/2022 11/11/2022 12:17 PM CDT Rule Out COVID-19 03/07/2023 03/07/2023 03/07/2023 1:20 PM CDT Rule Out COVID-19 12/26/2023 12/26/2023 12/26/2023 9:50 AM CDT Assessment Noted Time PHQ-9 Depression Total Score: 2 04/02/20 21 10:19 AM CDT documented as of this encounter Care Teams Registered Radiation Therapist Relationship Specialty Start Date End Date Marija Edgar APRN CNP PCP - General Nurse Practitioner 04/30/20 04/14/23 Esha Grimm PA-C [address] [facility] [address] PCP - General Family Medicine 05/04/23 Lita Oseguera Personal Advocate & Liaison (PAL) 02/28/20 03/27/23 Marija Edgar APRN CANTEEN MANAGER Assigned PCP 06/08/20 04/29/23 Mynor Broussard MD 6363 [facility] 500 [place] [address] Assigned Surgical Provider 06/01/20 11/28/21 Keisha Dotson MD 909 [place], [place] 438065 Assigned Neuroscience Provider 06/04/20 04/01/23 Galo Burrell MD Assigned Heart and Vascular Provider 10/05/20 04/02/22 [facility] 3033 [place] [address] Pharmacist Pharmacist 04/17/21 Rain Galaviz PA-C 5 [facility] [address] [place] [address] Physician Automotive Window Tinter Dermatology 04/28/21 Summer Lara MD [address] [place] [address] Assigned OBGYN Provider 05/31/21 2 Tavia Wyatt MD [address] [place] [address] Dermatology 07/14/21 Johnny Murillo MD [address] [place] [address] Assigned Musculoskeletal Provider 08/30/21 03/17/22 Erica Farrell APRN CANTEEN MANAGER [address] [facility] [address] [place] [address] Nurse Practitioner Cardiovascular Disease 09/09/21 Teresita Bean, [facility] [address] [place] [place] [phone] Pharmacist Pharmacist 09/24/21 09/29/21 Tavia Wyatt MD Assigned Surgical Provider 11/29/21 05/07/22 Diana Desir, [facility] 3033 [place] [address] Assigned MTM Pharmacist 01/02/22 Rich Barrett MD [address] 372705 Physician Ophthalmology 01/21/22 Neil Kent MD 500 [place], [place] 2667[address] Dermatology 02/24/22 Roney Story DPM [address] [facility] [address] [place] [address] Assigned Musculoskeletal Provider 03/20/22 08/13/22 Erica Farrell APRN CANTEEN MANAGER 1700 [place] [address] Assigned Heart and Vascular Provider 04/03/22 04/16/22 Diana Desir, [facility] 3033 [facility] [place] [place], [place] 6330[address] Assigned MTM Pharmacist 04/07/22 Frankie Jelenamao Garcia OD [address] [place] [address] Assigned Surgical Provider 05/08/22 10/08/22 Galo Burrell MD Assigned Heart and Vascular Provider 04/17/22 06/11/22 Livan Sharif MD [address] [place] [address] Cardiovascular Disease 05/14/22 Livan Sharif MD [address], [address] [place] [address] Assigned Heart and Vascular Provider 06/12/22 07/23/22 Catherine Cm MD [address] [place] 8[address]265 Cardiovascular Disease 07/21/22 Valery Veronica PAUcheC 909 [place], [place] 3733[address] Physician Automotive Window Tinter Dermatology 07/21/22 Catherine Cm MD [address] [place] [address] Assigned Heart and Vascular Provider 07/24/22 11/05/22 Johnny Murillo MD [facility] [address] [place] [address] Assigned Musculoskeletal Provider 08/14/22 10/08/22 Brea Quinn APRN CANTEEN MANAGER 500 [place] [address] Nurse Practitioner Dermatology 09/21/22 Brea Quinn APRN CANTEEN MANAGER 6401 [place] [address] Assigned Surgical Provider 10/09/22 [place] [address] [facility] 300 [place] [address] Assigned Musculoskeletal Provider 10/09/22 Livan Sharif MD [address], [facility] [address] [place], [place] [address] Assigned Heart and Vascular Provider 11/06/22 11/12/22 Catherine Cm MD [address] [facility] [address] [place], [place] 12[address] Assigned Heart and Vascular Provider 11/13/22 05/27/23 Sydnie Martinez RN Personal Advocate & Liaison (PAL) Family Medicine 03/28/23 07/31/23 Alfonso Renteria MD 5775 [facility] 200 [place], [place] 288036 Assigned Neuroscience Provider 04/02/23 Cheng Todd PA-C [address] [place] [address] Assigned PCP 04/30/23 07/15/23 Radha Lomeli APRN CANTEEN MANAGER 6405 [facility] [address] [place] [address] Assigned Heart and Vascular Provider 05/28/23 Jelena David OD [address] [place] [address] MD Ophthalmology 06/15/23 Pao Joseph, VJ Personal Advocate & Liaison (PAL) Nurse 08/01/23 11/07/23 Esha Grimm PA-C [address] [place] [phone] Assigned PCP 07/16/23 Valery Veronica PA-C [address] [place] [address] Physician Automotive Window Tinter Dermatology 09/19/23 Rey Tay MD [address] [place] [address] 763835 Gastroenterology 09/20/23 Rocky Zepeda DO [address] [place] [address] 725315 Physician Gastroenterology 09/20/23 Philip Dumont MD [address] [place] [address] 345855 Physician Ophthalmology 09/22/23 Meredith Carrera PA-C [address] [place] [address] 013475 Assigned Gastroenterology Provider 11/01/23 Neil Kent MD [address] [address] Dermatology 11/02/23 [place] [address] RA[address] [place] [address] Neurological Surgery 12/26/23 Audrey Waite PA-C [address] [place] [address] Physician Automotive Window Tinter Dermatology 02/28/24 documented as of this encounter
--- OUTSIDE RECORDS SUMMARY | 2024-03-23 16:05 | XMS_ITS | Encounter Summary ---
Author Organization [employer] Address [address] [place] [address] Care Team Providers Care Radiotelephone Operator Name Role Phone Lita Oseguera Unavailable Unavailable Marija Edgar APRN WATER REGULATOR AND VALVE REPAIRER Primary Care Provider + Marija Edgar APRN WATER REGULATOR AND VALVE REPAIRER Unavailable [phone] Mynor Broussard MD Unavailable [phone] Keisha Doston MD Unavailable Galo Burrell MD Unavailable Unavailable Diana Desir [facility] Unavailable Rain Galaviz PA-C Unavailable Summer Lara MD Unavailable [phone] Tavia Wyatt MD Unavailable Unavailable Johnny Murillo MD Unavailable Erica Farrell APRN WATER REGULATOR AND VALVE REPAIRER Unavailable Teresita Bean [facility] Unavailable [phone] Tavia Wyatt MD Unavailable Unavailable Diana Desir [facility] Unavailable [phone] Rich Barrett MD Unavailable Neil Kent MD Unavailable Roney StoryM Unavailable [phone] Erica Farrell TERRAZZO MECHANIC WATER REGULATOR AND VALVE REPAIRER Unavailable Diana Desir [facility] Unavailable [phone] Jelena David OD Unavailable [phone] Galo Burrell MD Unavailable Unavailable Livan Sharif MD Unavailable Livan Sharif MD Unavailable + Catherine Cm MD Unavailable + Valery Veronica PA-C Unavailable +[phone] Catherine Cm MD Unavailable + Johnny Murillo MD Unavailable [phone] Brea Quinn TERRAZZO MECHANIC WATER REGULATOR AND VALVE REPAIRER Unavailable [phone] Brea Quinn TERRAZZO MECHANIC WATER REGULATOR AND VALVE REPAIRER Unavailable [phone] Jose Francisco Johnson MD Unavailable Livan Sharif MD Unavailable + IsCatherine hobbs MD Unavailable + Sydnie Martinez RN Unavailable Unavailable Alfonso Renteria MD Unavailable + [phone] Esha Grimm PA-C Primary Care Provider Cheng Todd PA-C Unavailable Radha Lomeli TERRAZZO MECHANIC WATER REGULATOR AND VALVE REPAIRER Unavailable [phone] Jelena David OD Unavailable [phone] Pao Joseph RN Unavailable Unavailable Esha Grimm PA-C Unavailable [phone] Valery Veronica PA-C Unavailable [phone] Rey Tay MD Unavailable Rocky Zepeda DO Unavailable Philip Dumont MD Unavailable [phone] Meredith Carrera PA-C Unavailable [phone] Neil Kent MD Unavailable Juan Pablo Emmanuel MD Unavailable [phone] Audrey Waite PA-C Unavailable [phone] Encounter Details Date Type Department Care Team [...] do you attend chur or scientology services? More than 4 times [...] Answer Date Recorded PHQ-2 Score 0 04/02/2021 [facility] of Occupat ional [...] slept in a halfway (including now)? No 08/11/2020 [place] Depression Scale Answer Date Recorded [place] [...] COVID-19? No / Unsure 08/03/2021 2:24 PM UNDERCOVER AGENT documented as of this encounter Plan of Treatment Upcoming Encounters Date Type Department Care Team (Late st Contact Info) Description 03/26/2024 11:20 AM CDT Office Visit [facility] Spine and Neurosurgery [address] [facility] [address] [place] [address] Ebony Cid, ARLENE [facility] 500 [place], [place] [address] 03/27/2024 11:00 AM CDT Office Visit [facility] Keven [place] [address] [facility] [address] [place] [phone] Jelena David, [address] [facility] [place] [address] 03/29/2024 3:30 PM CDT Therapy Visit [facility] Rehabilitation Services [place] [address] [place] [address] [address] [place] [phone] Ingris [place], PT [facility] [address] [facility] 106 [place] [address] 04/05/2024 2:10 PM CDT Therapy Visit [facility] Rehabilitation Services [place] [address] [facility] [address] [place] [phone] Ingris [place], PT [facility] 516 [facility] 106 [place], [place] [address] 04/19/2024 2:45 PM CDT Office [facility] 830 [place] [phone] Audrey Waite PA-C 420 [facility] [address], [facility] 603 [place], [place] [address] 05/08/2024 1:30 PM CDT Office Visit [facility] [address] [place] [address] Lauren Claudio PA-C [address] [place], [place] [phone] Esha Grimm PA-C [address] [place] [phone] 06/21/2024 2:00 PM UNDERCOVER AGENT Office Visit [facility] Neurology Clinics - [address], [address] [place] [phone] [place] [address] [place], [place] [phone] Johnny Penn MD 6525 [place], [place] [phone] documented as of this encounter Visit Diagnoses Not on filedocumented in this encounter Additional Health Concerns Infection Onset Date Last Indicated Resolved Time COVID-19 07/18/2021 07/18/2021 08/08/2021 11:3 9 PM UNDERCOVER AGENT Rule Out COVID-19 12/18/2021 12/18/2021 12/19/2021 11:34 AM CDT Rule Out COVID-19 02/24/2022 02/24/2022 02/25/2022 1:08 PM CDT Rule Out COVID-19 04/26/2022 04/26/2022 04/26/2022 6:47 AM CDT Rule Out COVID-19 05/17/2022 05/17/2022 05/17/2022 10:20 PM UNDERCOVER AGENT Rule Out COVID-19 06/09/2022 06/09/2022 06/09/2022 9:35 AM UNDERCOVER AGENT COVID-19 06/09/2022 06/09/2022 06/30/2022 11:4 1 PM UNDERCOVER AGENT Rule Out COVID-19 11/10/2022 11/10/2022 11/11/2022 12:17 PM CDT Rule Out COVID-19 03/07/2023 03/07/2023 03/07/2023 1:20 PM CDT Rule Out COVID-19 12/26/2023 12/26/2023 12/26/2023 9:50 AM CDT Assessment Noted Time PHQ-9 Depression Total Score: 2 04/02/20 10:19 AM CDT documented as of this encounter Care Teams Radiotelephone Operator Relationship Specialty Start Date End Date Marija Edgar APRN WATER REGULATOR AND VALVE REPAIRER PCP - General Nurse Practitioner 04/30/20 04/14/23 Esha Grimm PA-C [address] [place] [address] PCP - General Family Medicine 05/04/23 Lita Oseguera Personal Advocate & Liaison (PAL) 02/28/20 03/27/23 Marija Edgar APRN WATER REGULATOR AND VALVE REPAIRER Assigned PCP 06/08/20 04/29/23 Mynor Broussard MD [address] [facility] [address] [place] [address] Assigned Surgical Provider 06/01/20 11/28/21 Keisha Dotson MD 909 [place] [address] Assigned Neuroscience Provider 06/04/20 04/01/23 Galo Burrell MD Assigned Heart and Vascular Provider 10/05/20 04/02/22 Diana Desir, [facility] [address] [place] [address] Pharmacist Pharmacist 04/17/21 Rain Galaviz PA-C [address] [facility] [address] [place] [address] Physician Topographical Surveyor Dermatology 04/28/21 Summer Lara MD [address] [place] [address] Assigned OBGYN Provider 05/31/21 2 Tavia Wyatt MD [address] [place] [address] Dermatology 07/14/21 Johnny Murillo MD [address] [place] [address] Assigned Musculoskeletal Provider 08/30/21 03/17/22 Erica Farrell APRN WATER REGULATOR AND VALVE REPAIRER 6405 [facility] [address] [place] [address] Nurse Practitioner Cardiovascular Disease 09/09/21 Teresita Bean, [facility] [address] [place] [address] Pharmacist Pharmacist 09/24/21 09/29/21 Tavia Wyatt MD Assigned Surgical Provider 11/29/21 05/07/22 [facility] [address] [place] [address] Assigned MTM Pharmacist 01/02/22 Rich Barrett MD [address] [address] Physician Ophthalmology 01/21/22 Neil Kent MD 500 [place], [place] [address] Dermatology 02/24/22 [place] [address] [facility] [address] [place], [place] [address] Assigned Musculoskeletal Provider 03/20/22 08/13/22 Erica Farrell APRN WATER REGULATOR AND VALVE REPAIRER 1700 [place] [address] Assigned Heart and Vascular Provider 04/03/22 04/16/22 [facility] [address] [place] [address] Assigned MTM Pharmacist 04/07/22 Jelena David OD 3305 [facility] [place] [address] Assigned Surgical Provider 05/08/22 10/08/22 Galo Burrell MD Assigned Heart and Vascular Provider 04/17/22 06/11/22 Livan Sharif MD [address] [place] [address] Cardiovascular Disease 05/14/22 Livan Sharif MD [address] [place] [address] Assigned Heart and Vascular Provider 06/12/22 07/23/22 Catherine Cm MD [address] [place] [address] Cardiovascular Disease 07/21/22 Valery Veronica, PAUcheC 909 [place] [address] Physician Topographical Surveyor Dermatology 07/21/22 Catherine Cm MD [address] [place] [address] Assigned Heart and Vascular Provider 07/24/22 11/05/22 Johnny Murillo MD [address] [place] [address] Assigned Musculoskeletal Provider 08/14/22 10/08/22 Brea Quinn APRN WATER REGULATOR AND VALVE REPAIRER 500 [place] [address] Nurse Practitioner Dermatology 09/21/22 Brea Quinn APRN WATER REGULATOR AND VALVE REPAIRER 6401 [facility] [place] [address] Assigned Surgical Provider 10/09/22 [place] [address] [facility] 300 [place], [place] [address] Assigned Musculoskeletal Provider 10/09/22 Livan Sharif MD [address] [facility] [address] [place] 486645 Assigned Heart and Vascular Provider 11/06/22 11/12/22 Catherine Cm MD [address] [facility] [address] [place] [address]25 Assigned Heart and Vascular Provider 11/13/22 05/27/23 Sydnie Martinez RN Personal Advocate & Liaison (PAL) Family Medicine 03/28/23 07/31/23 Alfonso Renteria MD 5775 [facility] 200 [place] [address] Assigned Neuroscience Provider 04/02/23 Cheng Todd PA-C [address] [place] [address] Assigned PCP 04/30/23 07/15/23 Radha Lomeli APRN WATER REGULATOR AND VALVE REPAIRER [address] [facility] [address] [place] [address] Assigned Heart and Vascular Provider 05/28/23 Jelena David OD [address] [facility] [place] [address] MD Ophthalmology 06/15/23 Pao Joseph, VJ Personal Advocate & Liaison (PAL) Nurse 08/01/23 11/07/23 Esha Grimm PA-C [address] [place] [phone] Assigned PCP 07/16/23 Valery Veronica PA-C [address] [place] [address] 158085 Physician Topographical Surveyor Dermatology 09/19/23 Rey Tay MD [address] [place] [address] 311565 Gastroenterology 09/20/23 Rocky Zepeda DO [address] [place] [address] 417345 Physician Gastroenterology 09/20/23 Philip Dumont MD [address] [place] [address] Physician Ophthalmology 09/22/23 Meredith Carrera PA-C [address] [place] [address] Assigned Gastroenterology Provider 11/01/23 Neil Kent MD [address] [place] [address] Dermatology 11/02/23 [place] [address] [place] [address] Neurological Surgery 12/26/23 Audrey Waite PA-C 500 [place] [address] Physician Topographical Surveyor Dermatology 02/28/24 documented as of this encounter
--- OUTSIDE RECORDS SUMMARY | 2024-03-23 16:05 | XMS_ITS | Encounter Summary ---
Author Organization [facility] Address [address] [place] [address] Care Team Providers Care Java Application Developer Name Role Phone Lita Oseguera Unavailable Unavailable Marija Edgar REFINING STILL OPERATOR INSIDE B2B SALES Primary Care Provider + Chanelle Mccann REFINING STILL OPERATOR CNM Unavailab le Marija Edgar APRN INSIDE B2B SALES Unavailable [phone] Mynor Broussard MD Unavailable [phone] Keisha Dotson MD Unavailable Galo Burrell MD Unavailable Unavailable Diana Desir [facility] Unavailable [phone] Rain Galaviz PA-C Unavailable Summer Lara MD Unavailable [phone] Summer Lara MD Unavailable [phone] Summer Lara MD Unavailable [phone] Tavia Wyatt MD Unavailable Unavailable Johnny Murillo MD Unavailable Erica Farrell REFINING STILL OPERATOR INSIDE B2B SALES Unavailable Teresita Bean [facility] Unavailable Tavia Wyatt MD Unavailable Unavailable Desir, Diana T RPH Unavailable [phone] Rich Barrett MD Unavailable Neil Kent MD Unavailable Roney Story DPM Unavailable [phone] Erica Farrell REFINING STILL OPERATOR INSIDE B2B SALES Unavailable + Thang Diana Stanislav RP Unavailable [phone] Jelena David OD Unavailable Galo Burrell MD Unavailable Unavailable Livan Sharif MD Unavailable Livan Sharif MD Unavailable + Catherine Cm MD Unavailable + Valery Veronica PA-C Unavailable [phone] Catherine Cm MD Unavailable + Johnny Murillo MD Unavailable [phone] Brea Quinn REFINING STILL OPERATOR INSIDE B2B SALES Unavailable [phone] Brea Quinn REFINING STILL OPERATOR INSIDE B2B SALES Unavailable [phone] Jose Francisco Johnson MD Unavailable Livan Sharif MD Unavailable + Catherine Cm MD Unavailable + Sydnie Martinez RN Unavailable Unavailable Alfonso Renteria MD Unavailable Esha Grimm PA-C Primary Care Provider Cheng Todd PA-C Unavailable Radha Lomeli REFINING STILL OPERATOR INSIDE B2B SALES Unavailable [phone] Jelena David OD Unavailable [phone] Pao Joseph RN Unavailable Unavailable Esha Grimm-C Unavailable [phone] Jeremías, Valery D PA-C Unavailable [phone] Rey Tay MD Unavailable Rocky Zepeda DO Unavailable Philip Dumont MD Unavailable [phone] Meredith CarreraC Unavailable [phone] Neil Kent MD Unavailable Juan Pablo Emmanuel MD Unavailable [phone] Audrey Waite PA-C Unavailable [phone] Encounter Details Date Type Department Care Team (Late st Contact Info) Description 04/28/2021 MyC Medical Advice [address] [address] Marija Edgar APRN [facility] [address] [facility] [place] [address] Social History Tobacco Use Types Packs/Day Years [...] do you attend chur or congregational services? More than 4 times [...] in a snf (including now)? No 08/11/2020 [place] Depression Scale Answer Date Recorded [...] [facility] Spine and Neurosurgery [address] [facility] [address] [place] [address] Ebony Cid APRN [facility] 500 [place], [place] 85[address] 03/27/2024 11:00 AM CDT Office Visit [place] 6[address] [facility] [address] [place] [address] [place], [place] [address] [place] [address] 03/29/2024 3:30 PM CDT [facility] [address] [facility] 160 [place] [phone] Ingris Thompson, PT [facility] [address] [place] [address] 106 [place], [place] 445615 04/05/2024 2:10 PM CDT [facility] [address] [facility] 160 [place] [phone] Ingris Thompson, PT [facility] [address] [place] [address] 106 [place], [place] 414845 04/19/2024 2:45 PM CDT Office Visit [address] [phone] Audrey Waite PA-C 420 [facility] [address], [facility] 603 [place] [address] 05/08/2024 1:30 PM CDT Office Visit [facility] [address] [place] [address] Lauren Claudio PA-C [address] [place], [place] [phone] Esha Grimm PA-C [address] [place] [address] 06/21/2024 2:00 PM SCHEDULING MANAGER Office Visit [facility] Neurology Clinics - [address], [address] [place] [phone] [place] [address] [place] [address] Johnny Penn MD [address] [place], [place] 5930[address] documented as of this encounter Visit Diagnoses Not on filedocumented in this encounter Additional Health Concerns Infection Onset Date Last Indicated Resolved Time Rule Out COVID-19 05/11/2021 05/11/2021 05/13/2021 10:18 AM CDT Rule Out COVID-19 07/13/2021 07/13/2021 07/14/2021 3:04 PM SCHEDULING MANAGER Rule Out COVID-19 07/18/2021 07/18/2021 07/20/2021 1:56 PM SCHEDULING MANAGER COVID-19 07/18/2021 07/18/2021 08/08/2021 11:3 9 PM SCHEDULING MANAGER Rule Out COVID-19 12/18/2021 12/18/2021 12/19/2021 11:34 AM CDT Rule Out COVID-19 02/24/2022 02/24/2022 02/25/2022 1:08 PM CDT Rule Out COVID-19 04/26/2022 04/26/2022 04/26/2022 6:47 AM CDT Rule Out COVID-19 05/17/2022 05/17/2022 05/17/2022 10:20 PM SCHEDULING MANAGER Rule Out COVID-19 06/09/2022 06/09/2022 06/09/2022 9:35 AM SCHEDULING MANAGER COVID-19 06/09/2022 06/09/2022 06/30/2022 11:4 1 PM SCHEDULING MANAGER Rule Out COVID-19 11/10/2022 11/10/2022 11/11/2022 12:17 PM CDT Rule Out COVID-19 03/07/2023 03/07/2023 03/07/2023 1:20 PM CDT Rule Out COVID-19 12/26/2023 12/26/2023 12/26/2023 9:50 AM CDT Assessment Noted Time PHQ-9 Depression Total Score: 2 04/02/20 21 10:19 AM CDT documented as of this encounter Care Teams Java Application Developer Relationship Specialty Start Date End Date Marija Edgar APRN INSIDE B2B SALES PCP - General Nurse Practitioner 04/30/20 04/14/23 Esha Grimm PA-C [address] [place] [phone] PCP - General Family Medicine 05/04/23 Lita Oseguera Personal Advocate & Liaison (PAL) 02/28/20 03/27/23 Chanelle Mccann APRN [facility] [address] [place] [address] 200 [place] [address] Assigned OBGYN Provider 05/02/2005/09 Marija Edgar APRN INSIDE B2B SALES Assigned PCP 06/08/20 04/29/23 Mynor Broussard MD [address] [facility] 500 [place], [place] 134365 Assigned Surgical Provider 06/01/20 11/28/21 Keisha Dotson MD 909 [place], [place] 644755 Assigned Neuroscience Provider 06/04/20 04/01/23 Galo Burrell MD Assigned Heart and Vascular Provider 10/05/20 04/02/22 [facility] [address] [place] [address] Pharmacist Pharmacist 04/17/21 Rain Galaviz PA-C [address] [place] [address] [place] [address] Physician Photo Editor Dermatology 04/28/21 Summer Lara MD [address] [place] [address] [place] [address] Assigned OBGYN Provider 05/10/2105/23 Summer Lara MD [address] [place] [address] [place] [address] Assigned OBGYN Provider 05/31/21 Summer Lara MD [address] [place] [address] [place], [place] 624144 Assigned OBGYN Provider 05/24/2105/30 Tavia Wyatt MD [address] [place] [address] [place] [address] Dermatology 07/14/21 Johnny Murillo MD [address] [place] [address] Assigned Musculoskeletal Provider 08/30/21 03/17/22 Erica Farrell APRN INSIDE B2B SALES 6405 [facility] [address] [place] [address] Nurse Practitioner Cardiovascular Disease 09/09/21 Teresita Bean, [facility] [address] [place] [address] Pharmacist Pharmacist 09/24/21 09/29/21 Tavia Wyatt MD Assigned Surgical Provider 11/29/21 05/07/22 Diana Desir, [facility] [address] [place] [address] Assigned MTM Pharmacist 01/02/22 Rich Barrett MD [address] 152745 Physician Ophthalmology 01/21/22 Neil Kent MD 500 [place] [address] Dermatology 02/24/22 Roney [place] DPM [address] [facility] 300 [place] [address] Assigned Musculoskeletal Provider 03/20/22 08/13/22 Erica Farrell APRN INSIDE B2B SALES 1700 [place] [address] Assigned Heart and Vascular Provider 04/03/22 04/16/22 Diana Desir, [facility] [address] [place] [address] Assigned MTM Pharmacist 04/07/22 [place] [address] [facility] [place] [address] Assigned Surgical Provider 05/08/22 10/08/22 Galo Burrell MD Assigned Heart and Vascular Provider 04/17/22 06/11/22 Livan Sharif MD [address] [place] [address] Cardiovascular Disease 05/14/22 Livan Sharif MD [address], [address] [place] [address] Assigned Heart and Vascular Provider 06/12/22 07/23/22 Catherine Cm MD [address] [place] [address] Cardiovascular Disease 07/21/22 Valery Veronica, PA-C [address] [place] [address] 684265 Physician Photo Editor Dermatology 07/21/22 Catherine Cm MD [address] [place] [address] Assigned Heart and Vascular Provider 07/24/22 11/05/22 Johnny Murillo MD [facility] [address] 226264 Assigned Musculoskeletal Provider 08/14/22 10/08/22 Brea Quinn APRN INSIDE B2B SALES [address] [place] [address] 320655 Nurse Practitioner Dermatology 09/21/22 Brea Quinn APRN INSIDE [employer]2B SALES 6401 [facility] [place] [address] Assigned Surgical Provider 10/09/22 [place] [address] [place] [address] Assigned Musculoskeletal Provider 10/09/22 Livan Sharif MD [address], [email or web address] [address] [place] [address] Assigned Heart and Vascular Provider 11/06/22 11/12/22 Catherine Cm MD [address] [place] [address] Assigned Heart and Vascular Provider 11/13/22 05/27/23 Sydnie Martinez RN Personal Advocate & Liaison (PAL) Family Medicine 03/28/23 07/31/23 Alfonso Renteria MD 5775 [facility] 200 [place] [address] Assigned Neuroscience Provider 04/02/23 Cheng Todd PA-C [address] [place] [address] Assigned PCP 04/30/23 07/15/23 Radha Lomeli, REFINING STILL OPERATOR INSIDE B2B SALES [address] [place] [address] Assigned Heart and Vascular Provider 05/28/23 Jelena David OD [address] [place] [address] MD Ophthalmology 06/15/23 Pao Joseph, RN Personal Advocate & Liaison (PAL) Nurse 08/01/23 11/07/23 Esha Grimm PA-C [address] [place] [phone] Assigned PCP 07/16/23 Valery Veronica PA-C [address] [place] [address] 225485 Physician Photo Editor Dermatology 09/19/23 Rey Tay MD [address] [place] [address] 718605 MD Gastroenterology 09/20/23 Rocky Zepeda DO [address] [place] [address] 446095 Physician Gastroenterology 09/20/23 Philip Dumont MD [address] [place] [address] 813835 Physician Ophthalmology 09/22/23 Meredith Carrera PA-C [address] [place] [address] 456385 Assigned Gastroenterology Provider 11/01/23 Neil Kent MD [address] [place] [address] 548210 Dermatology 11/02/23 [place] [address] [place] [address] Neurological Surgery 12/26/23 Audrey Waite PA-C 500 [place] [address] Physician Photo Editor Dermatology 02/28/24 documented as of this encounter
--- OUTSIDE RECORDS SUMMARY | 2024-03-23 16:05 | XMS_ITS | Encounter Summary ---
Author Organization [facility] Address [address] [place] [address] Care Team Providers Care Truck Operator Name Role Phone Lita Oseguera Unavailable Unavailable Marija Edgar APRN SUPERVISOR PLEATING Primary Care Provider + Marija Edgar APRN SUPERVISOR PLEATING Unavailable [phone] Mynor Broussard MD Unavailable [phone] Keisha Dotson MD Unavailable Galo Burrell MD Unavailable Unavailable Diana Desir [facility] Unavailable [phone] Rain Galaviz PA-C Unavailable Summer Lara MD Unavailable [phone] Tavia Wyatt MD Unavailable Unavailable Johnny Murillo MD Unavailable [phone] Erica Farrell APRN SUPERVISOR PLEATING Unavailable Teresita Bean [facility] Unavailable [phone] Tavia Wyatt MD Unavailable Unavailable Diana Desir [facility] Unavailable [phone] Rich Barrett MD Unavailable Neil Kent MD Unavailable Roney StoryM Unavailable [phone] Erica Farrell MUSIC WRITER SUPERVISOR PLEATING Unavailable Diana Desir [facility] Unavailable [phone] Jelena David OD Unavailable [phone] Galo Burrell MD Unavailable Unavailable Livan Sharif MD Unavailable Livan Sharif MD Unavailable + Catherine Cm MD Unavailable + Valery Veronica PA-C Unavailable [phone] Catherine Cm MD Unavailable + Johnny Murillo MD Unavailable [phone] Brea Quinn MUSIC WRITER SUPERVISOR PLEATING Unavailable [phone] Brea Quinn MUSIC WRITER SUPERVISOR PLEATING Unavailable [phone] Jose Francisco Johnson MD Unavailable Livan Sharif MD Unavailable + IsCatherine hobbs MD Unavailable + Sydnie Martinez RN Unavailable Unavailable Alfonso Renteria MD Unavailable [phone] Esha Grimm PA-C Primary Care Provider Cheng Todd PA-C Unavailable Radha Lomeli MUSIC WRITER SUPERVISOR PLEATING Unavailable [phone] Jelena David OD Unavailable Pao Joseph RN Unavailable Unavailable Esha Grimm PA-C Unavailable [phone] Valery Veronica PA-C Unavailable [phone] Rey Tay MD Unavailable Rocky Zepeda DO Unavailable Philip Dumont MD Unavailable [phone] Meredith Carrera PA-C Unavailable [phone] Neil Kent MD Unavailable Juan Pablo Emmanuel MD Unavailable Audrey Waite PA-C Unavailable [phone] Encounter Details Date Type Department Care Team (Late st Contact Info) Description 06/25/2021 MyC Medical Advice [facility] [address] [place] [address] Diana Desir, [facility] 3039 [place] [address] Psoriasis (Primary Dx) Social History [...] you attend [facility] or zoroastrianism services? More than 4 times [...] Answer Date Recorded PHQ-2 Score 0 04/02/2021 [facility] Occupat ional [facility] - Occupational Stress Questionnaire Answer Date Recorded [...] in a usp (including now)? No 08/11/2020 [place] Depression Scale Answer Date Recorded [place] Depression Score 5 01/14/2021 Last EPDS [...] COVID-19? No / Unsure 06/26/2021 8:28 AM PASSENGER ATTENDANT documented as of this encounter Miscellaneous Notes * Telephone Encounter - Diana Desir [facility] - 06/26/2021 9:53 AM CST Discussed with PCP and verbal approval for betamethasone cream. Diana Desir, PharmD Medication Therapy Management Provider, [facility] Pager: [phone] ENGER ATTENDANT documented in this encounter Plan of Treatment Upcoming Encounters Date Type Department Care Team (Late st Contact Info) Description 03/26/2024 11:20 AM CDT Office Visit [facility] Spine and Neurosurgery [address] [place] [address] Ebony Cid, MUSIC WRITER [facility] 500 [place] [address] 03/27/2024 11:00 AM CDT Office Visit [facility] [place] [address] [facility] [address] [place] [phone] Jelena David, 3[address] [facility] [place] [address] 03/29/2024 3:30 PM CDT Therapy Visit [facility] [address] [place] [address] 160 [place] [phone] Ingris Thompson, PT [facility] [address] [place] [address] 106 [place], [place] 168635 04/05/2024 2:10 PM CDT Therapy Visit [facility] [address] [place] [address] 160 [place] [phone] Ingris Thompson, PT [facility] [address] [place] [address] 106 [place] [address] 04/19/2024 2:45 PM CDT Office Visit [address] [phone] Audrey Waite PA-C 420 [facility] [address], [facility] 603 [place], [place] 136835 05/08/2024 1:30 PM CDT Office Visit [facility] [address] [place] [address] Lauren Claudio PA-C [address] [place] [address] Esha Grimm PA-C [address] [place] [address] 06/21/2024 2:00 PM PASSENGER ATTENDANT Office Visit [facility] Neurology [facility] [address] [facility], [address] [place] [address] [place] [address] [place], [place] [phone] Johnny Penn MD [address] [place] 670285 documented as of this encounter Visit Diagnoses Diagnosis Psoriasis- Primary Other psoriasis documented in this encounter Additional Health Concerns Infection Onset Date Last Indicated Resolved Time Rule Out COVID-19 07/13/2021 07/13/2021 07/14/2021 3:04 PM PASSENGER ATTENDANT Rule Out COVID-19 07/18/2021 07/18/2021 07/20/2021 1:56 PM PASSENGER ATTENDANT COVID-19 07/18/2021 07/18/2021 08/08/2021 11:3 9 PM PASSENGER ATTENDANT Rule Out COVID-19 12/18/2021 12/18/2021 12/19/2021 11:34 AM CDT Rule Out COVID-19 02/24/2022 02/24/2022 02/25/2022 1:08 PM CDT Rule Out COVID-19 04/26/2022 04/26/2022 04/26/2022 6:47 AM CDT Rule Out COVID-19 05/17/2022 05/17/2022 05/17/2022 10:20 PM PASSENGER ATTENDANT Rule Out COVID-19 06/09/2022 06/09/2022 06/09/2022 9:35 AM PASSENGER ATTENDANT COVID-19 06/09/2022 06/09/2022 06/30/2022 11:4 1 PM PASSENGER ATTENDANT Rule Out COVID-19 11/10/2022 11/10/2022 11/11/2022 12:17 PM CDT Rule Out COVID-19 03/07/2023 03/07/2023 03/07/2023 1:20 PM CDT Rule Out COVID-19 12/26/2023 12/26/2023 12/26/2023 9:50 AM CDT Assessment Noted Time PHQ-9 Depression Total Score: 2 04/02/20 10:19 AM CDT documented as of this encounter Care Teams Truck Operator Relationship Specialty Start Date End Date Marija Edgar APRN SUPERVISOR PLEATING PCP - General Nurse Practitioner 04/30/20 04/14/23 Esha Grimm PA-C [address] [place] [phone] PCP - General Family Medicine 05/04/23 Lita Oseguera Personal Advocate & Liaison (PAL) 02/28/20 03/27/23 Marija Edgar APRN SUPERVISOR PLEATING Assigned PCP 06/08/20 04/29/23 Mynor Broussard MD [address] [address] Assigned Surgical Provider 06/01/20 11/28/21 Keisha Dotson MD 909 [place], [place] 18[address] Assigned Neuroscience Provider 06/04/20 04/01/23 Galo Burrell MD Assigned Heart and Vascular Provider 10/05/20 04/02/22 Diana Desir [facility] 30[address] [place], [place] 23[address] Pharmacist Pharmacist 04/17/21 Rain Galaviz PA-C [address] [facility] [place] [address] Physician Bellows Filler Dermatology 04/28/21 Summer Lara MD [address] [place] [address] Assigned OBGYN Provider 05/31/21 2 Tavia Wyatt MD [address] [place] [address] Dermatology 07/14/21 Johnny Murillo MD [address] [place] [address] Assigned Musculoskeletal Provider 08/30/21 03/17/22 Erica Farrell APRN [facility] 6[address] [facility] [address] [place] [address] Nurse Practitioner Cardiovascular Disease 09/09/21 Teresita Bean, [facility] 14[address] [facility] [place] [address] Pharmacist Pharmacist 09/24/21 09/29/21 Tavia Wyatt MD Assigned Surgical Provider 11/29/21 05/07/22 [facility] [address] [place] [address] Assigned MTM Pharmacist 01/02/22 Rich Barrett MD 516 [facility] [address]A [place] [address] Physician Ophthalmology 01/21/22 Neil Kent MD 500 [place] [address] Dermatology 02/24/22 [place] [address] [facility] [address] [place] [address] Assigned Musculoskeletal Provider 03/20/22 08/13/22 Erica Farrell APRN SUPERVISOR PLEATING 1700 [place] [address] Assigned Heart and Vascular Provider 04/03/22 04/16/22 Diana Desir, [facility] [address] [place], [place] 247086 Assigned MTM Pharmacist 04/07/22 [place] David [place] [address] [place] [address] Assigned Surgical Provider 05/08/22 10/08/22 Galo Burrell MD Assigned Heart and Vascular Provider 04/17/22 06/11/22 Livan Sharif MD [address] [place] 2237[address] Cardiovascular Disease 05/14/22 Livan Sharif MD [address] [place] 421905 Assigned Heart and Vascular Provider 06/12/22 07/23/22 Catherine Cm MD [address] [place] [address] Cardiovascular Disease 07/21/22 Valery Veronica, PAUcheC [address] [place] [address] Physician Bellows Filler Dermatology 07/21/22 Catherine Cm MD [address] [place] [address] Assigned Heart and Vascular Provider 07/24/22 11/05/22 Johnny Murillo MD [address] [place] [address] Assigned Musculoskeletal Provider 08/14/22 10/08/22 Brea Quinn APRN SUPERVISOR PLEATING [address] [place] [address] 568545 Nurse Practitioner Dermatology 09/21/22 Brea Quinn APRN SUPERVISOR PLEATING [address] [place] [address] [place] 141992 Assigned Surgical Provider 10/09/22 [place] [address] [place] [address] Assigned Musculoskeletal Provider 10/09/22 Livan Sharif MD [address] [place] [address] Assigned Heart and Vascular Provider 11/06/22 11/12/22 Catherine Cm MD [address] [place] [address]23635 Assigned Heart and Vascular Provider 11/13/22 05/27/23 Sydnie Martinez RN Personal Advocate & Liaison (PAL) Family Medicine 03/28/23 07/31/23 Alfonso Renteria MD 5775 [facility] 200 [place] [address] Assigned Neuroscience Provider 04/02/23 Cheng Todd PA-C [address] [place] [address] 47539127 Assigned PCP 04/30/23 07/15/23 Radha Lomeli APRN SUPERVISOR PLEATING [address] [place] [address] Assigned Heart and Vascular Provider 05/28/23 Jelena David OD [address] [place] [address] Ophthalmology 06/15/23 Pao Joseph RN Personal Advocate & Liaison (PAL) Nurse 08/01/23 11/07/23 Esha Grimm PA-C [address] [place] [phone] Assigned PCP 07/16/23 Valery Veronica PA-C [address] [place] [employer], [place] 708705 Physician Bellows Filler Dermatology 09/19/23 Rey Tay MD 9 [place] [address] MD Gastroenterology 09/20/23 Rocky Zepeda DO 500 [place] [address] Physician Gastroenterology 09/20/23 Philip Dumont MD [address] [place] [address] Physician Ophthalmology 09/22/23 Meredith [place] PA-C [address] [place] [address] Assigned Gastroenterology Provider 11/01/23 Neil Kent MD [address] [address] Dermatology 11/02/23 [place] [address] [address] Neurological Surgery 12/26/23 Audrey Waite PA-C [address] [place] [address] Physician Bellows Filler Dermatology 02/28/24 documented as of this encounter
--- OUTSIDE RECORDS SUMMARY | 2024-03-23 16:05 | XMS_ITS | Encounter Summary ---
Author Organization [facility] Address [address] [place] [address] Care Team Providers Care Harvest Field Ticketer Name Role Phone Lita Oseguera Unavailable Unavailable Marija Edgar APRN DRUG SAFETY SPECIALIST Primary Care Provider + Marija Edgar APRN DRUG SAFETY SPECIALIST Unavailable [phone] Mynor Broussard MD Unavailable [phone] Keisha Dotson MD Unavailable Galo Burrell MD Unavailable Unavailable Diana Desir [facility] Unavailable Rain Galaviz PA-C Unavailable Summer Lara MD Unavailable [phone] Tavia Wyatt MD Unavailable Unavailable Johnny Murillo MD Unavailable Erica Farrell APRN DRUG SAFETY SPECIALIST Unavailable Teresita Bean [facility] Unavailable Tavia Wyatt MD Unavailable Unavailable Diana Desir [facility] Unavailable [phone] Rich Barrett MD Unavailable Neil Kent MD Unavailable Roney StoryM Unavailable [phone] Erica Farrell CNC PROGRAMMER DRUG SAFETY SPECIALIST Unavailable Diana Desir [facility] Unavailable [phone] Jelena David OD Unavailable [phone] Galo Burrell MD Unavailable Unavailable Livan Sharif MD Unavailable Liavn Sharif MD Unavailable + Catherine Cm MD Unavailable + Valery Veronica PA-C Unavailable [phone] Catherine Cm MD Unavailable + Johnny Murillo MD Unavailable [phone] Brea Quinn CNC PROGRAMMER DRUG SAFETY SPECIALIST Unavailable [phone] Brea Quinn CNC PROGRAMMER DRUG SAFETY SPECIALIST Unavailable [phone] Jose Francisco Johnson MD Unavailable Livan Sharif MD Unavailable + IsCatherine hobbs MD Unavailable + Sydnie Martinez RN Unavailable Unavailable Alfonso Renteria MD Unavailable + [phone] Esha Grimm PA-C Primary Care Provider Cheng Todd PA-C Unavailable Radha Lomeli CNC PROGRAMMER DRUG SAFETY SPECIALIST Unavailable [phone] Jelena David OD Unavailable [phone] Pao Joseph RN Unavailable Unavailable Esha Grimm PA-C Unavailable [phone] Valery Veronica PA-C Unavailable [phone] Rey Tay MD Unavailable Rocky Zepeda DO Unavailable Philip Dumont MD Unavailable [phone] LorerianaMeredith PA-C Unavailable [phone] Neil Kent MD Unavailable Juan Pablo Emmanuel MD Unavailable [phone] Ravindra Audreybere Marcos PA-C Unavailable [phone] Encounter Details Date Type Department Care Team (Late st Contact Info) Description 07/14/2021 MyC Medical Advice [address] [address] Lauren Gan, RN Social History [...] Answer Date Recorded PHQ-2 Score 0 04/02/2021 [facility] of Occupat ional [facility] - [...] in a fci (including now)? No 08/11/2020 Arden Depression Scale Answer Date Recorded Arden Depression Score 5 01/14/2021 Last EPDS Self [...] Coronavirus / COVID-19? Yes 07/15/2021 12:15 PM CHILD DAY CARE PROVIDER documented as of this encounter Plan of Treatment Upcoming Encounters Date Type Department Care Team (Late st Contact Info) Description 03/26/2024 11:20 AM CDT Office Visit [facility] Spine [facility] Neuro[facility] [address] [place] [phone] Ebony Cid, [facility] 500 [place] [address] 03/27/2024 11:00 AM CDT Office [facility] [place] [address] [place] [phone] Jelena David, SONJA [address] [facility] [place] [address] 03/29/2024 3:30 PM CDT Therapy Visit [facility] [address] [place] [phone] Ingris Thompson, PT [facility] 516 [facility] 106 [place] [address] 04/05/2024 2:10 PM CDT Therapy Visit [facility] [place] [address] [facility] [address] [place] [phone] Ingris Thompson, PT [facility] 516 [facility] [place] 106 [place], [place] [address] 04/19/2024 2:45 PM CDT Office Visit [place] [address] [place] [phone] Audrey Waite PA-C 420 [facility] [address], [facility] 603 [place], [place] [address] 05/08/2024 1:30 PM CDT Office Visit [facility] [address] [place] [phone] Lauren Claudio PA-C [address] [place], [place] [phone] Esha Grimm PA-C [address] [place] [address] 06/21/2024 2:00 PM CHILD DAY CARE PROVIDER Office [facility] [place] [address] [facility], [address] [place] [address] [place] [address] [place] [phone] Johnny Penn MD [address] [place] [address] documented as of this encounter Visit Diagnoses Not on filedocumented in this encounter Additional Health Concerns Infection Onset Date Last Indicated Resolved Time Rule Out COVID-19 07/13/2021 07/13/2021 07/14/2021 3:04 PM CHILD DAY CARE PROVIDER Rule Out COVID-19 07/18/2021 07/18/2021 07/20/2021 1:56 PM CHILD DAY CARE PROVIDER COVID-19 07/18/2021 07/18/2021 08/08/2021 11:3 9 PM CHILD DAY CARE PROVIDER Rule Out COVID-19 12/18/2021 12/18/2021 12/19/2021 11:34 AM CDT Rule Out COVID-19 02/24/2022 02/24/2022 02/25/2022 1:08 PM CDT Rule Out COVID-19 04/26/2022 04/26/2022 04/26/2022 6:47 AM CDT Rule Out COVID-19 05/17/2022 05/17/2022 05/17/2022 10:20 PM CHILD DAY CARE PROVIDER Rule Out COVID-19 06/09/2022 06/09/2022 06/09/2022 9:35 AM CHILD DAY CARE PROVIDER COVID-19 06/09/2022 06/09/2022 06/30/2022 11:4 1 PM CHILD DAY CARE PROVIDER Rule Out COVID-19 11/10/2022 11/10/2022 11/11/2022 12:17 PM CDT Rule Out COVID-19 03/07/2023 03/07/2023 03/07/2023 1:20 PM CDT Rule Out COVID-19 12/26/2023 12/26/2023 12/26/2023 9:50 AM CDT Assessment Noted Time PHQ-9 Depression Total Score: 2 04/02/20 10:19 AM CDT documented as of this encounter Care Teams Harvest Field Ticketer Relationship Specialty Start Date End Date Marija Edgar APRN CNP PCP - General Nurse Practitioner 04/30/20 04/14/23 Esha Grimm PA-C [address] [place] [address] PCP - General Family Medicine 05/04/23 Lita Oseguera Personal Advocate & Liaison (PAL) 02/28/20 03/27/23 Marija Edgar APRN DRUG SAFETY SPECIALIST Assigned PCP 06/08/20 04/29/23 Mynor Broussard MD [address] 601045 Assigned Surgical Provider 06/01/20 11/28/21 Keisha Dotson MD 909 [place], [place] 115565 Assigned Neuroscience Provider 06/04/20 04/01/23 Galo Burrell MD Assigned Heart and Vascular Provider 10/05/20 04/02/22 [facility] 3033 [place] [address] Pharmacist Pharmacist 04/17/21 Rain Galaviz PA-C [address] [place] [address] [address] [place] [address] Physician Artificial Leather Calender Operator Dermatology 04/28/21 Summer Lara MD [address] [place] [address] Assigned OBGYN Provider 05/31/21 2 Tavia Wyatt MD [address] [place] [address] Dermatology 07/14/21 Johnny Murillo MD [address] [place] [address] Assigned Musculoskeletal Provider 08/30/21 03/17/22 Erica Farrell APRN DRUG SAFETY SPECIALIST [address] [facility] [address] [place] [address] Nurse Practitioner Cardiovascular Disease 09/09/21 Teresita Bean, [facility] [address] [place], [place] [phone] Pharmacist Pharmacist 09/24/21 09/29/21 Tavia Wyatt MD Assigned Surgical Provider 11/29/21 05/07/22 [facility] 3033 [place] [address] Assigned MTM Pharmacist 01/02/22 Rich Barrett MD 516 [facility] 9A [place], [place] 527585 Physician Ophthalmology 01/21/22 Neil Kent MD 500 [place] [address] Dermatology 02/24/22 Roney Story DPM 19367 [facility] 300 [place] [address] Assigned Musculoskeletal Provider 03/20/22 08/13/22 Erica Farrell APRN DRUG SAFETY SPECIALIST 1700 [place] [address] Assigned Heart and Vascular Provider 04/03/22 04/16/22 Diana Desir, [facility] 3033 [place] [address] Assigned MTM Pharmacist 04/07/22 Jelena David OD [address] [facility] [place] [address] Assigned Surgical Provider 05/08/22 10/08/22 Galo Burrell MD Assigned Heart and Vascular Provider 04/17/22 06/11/22 Livan Sharif MD [address] [place] [address] Cardiovascular Disease 05/14/22 Livan Sharif MD [address] [place] [address] Assigned Heart and Vascular Provider 06/12/22 07/23/22 Catherine Cm MD [address] [place] [address] Cardiovascular Disease 07/21/22 Valery Veronica PA-C 909 [place], [place] 664685 Physician Artificial Leather Calender Operator Dermatology 07/21/22 Catherine Cm MD [address] [place] 308745 Assigned Heart and Vascular Provider 07/24/22 11/05/22 Johnny Murillo MD [facility] [address] [address] Assigned Musculoskeletal Provider 08/14/22 10/08/22 Brea Quinn APRN DRUG SAFETY SPECIALIST 500 [place] [address] Nurse Practitioner Dermatology 09/21/22 Brea Quinn APRN DRUG SAFETY SPECIALIST 6401 [place] [address] Assigned Surgical Provider 10/09/22 [place] [address] [address] Assigned Musculoskeletal Provider 10/09/22 Livan Sharif MD 6405 [facility] [address] [place] [address] Assigned Heart and Vascular Provider 11/06/22 11/12/22 Catherine Cm MD [address] [facility] [address] [place], [place] 219645 Assigned Heart and Vascular Provider 11/13/22 05/27/23 Sydnie Martinez RN Personal Advocate & Liaison (PAL) Family Medicine 03/28/23 07/31/23 Alfonso Renteria MD [address] [facility] 200 [place], [place] 033366 Assigned Neuroscience Provider 04/02/23 Cheng Todd PA-C [address] [place] [address] [phone] Assigned PCP 04/30/23 07/15/23 Radha Lomeli APRN DRUG SAFETY SPECIALIST [address] [facility] [address] [place], [place] 777965 Assigned Heart and Vascular Provider 05/28/23 Jelena David OD [address] [facility] [address] [place] [phone] Ophthalmology 06/15/23 Pao Joseph, VJ Personal Advocate & Liaison (PAL) Nurse 08/01/23 11/07/23 Esha Grimm PA-C [address] [place] [address] Assigned PCP 07/16/23 Valery Veronica PA-C [address] [place] [address] 177515 Physician Artificial Leather Calender Operator Dermatology 09/19/23 Rey Tay MD [address] [place] [address] 914625 Gastroenterology 09/20/23 Rocky Zepeda DO [address] [place] [address] [phone] Physician Gastroenterology 09/20/23 Philip Dumont MD [address] [place] [address] 286195 Physician Ophthalmology 09/22/23 Meredith Carrera PA-C [address] [place] [address] 046525 Assigned Gastroenterology Provider 11/01/23 Neil Kent MD [address] 947780 Dermatology 11/02/23 [place] [address] 179437 Neurological Surgery 12/26/23 Audrey Waite PA-C [address] [place] [address] 716105 Physician Artificial Leather Calender Operator Dermatology 02/28/24 documented as of this encounter
--- OUTSIDE RECORDS SUMMARY | 2024-03-23 16:05 | XMS_ITS | Encounter Summary ---
Author Organization [facility] Address [address] [place] [address] Care Team Providers Care Care Taker Name Role Phone Lita Oseguera Unavailable Unavailable Marija Edgar JEWELRY SALES TANNING SALON ATTENDANT Primary Care Provider + Chanelle Mccann JEWELRY SALES CNM Unavailab le Marija Edgar APRN TANNING SALON ATTENDANT Unavailable Mynor Broussard MD Unavailable [phone] Keisha Dotson MD Unavailable Galo Burrell MD Unavailable Unavailable Diana Desir [facility] Unavailable Rain Galaviz PA-C Unavailable [phone] Summer Lara MD Unavailable [phone] Summer Lara MD Unavailable [phone] Summer Lara MD Unavailable [phone] Tavia Wyatt MD Unavailable Unavailable Johnny Murillo MD Unavailable Erica Farrell JEWELRY SALES TANNING SALON ATTENDANT Unavailable Teresita Bean [facility] Unavailable Tavia Wyatt MD Unavailable Unavailable Desir, Diana T RPH Unavailable [phone] Rich Barrett MD Unavailable Neil Kent MD Unavailable Roney Story DPM Unavailable [phone] Erica Farrell JEWELRY SALES TANNING SALON ATTENDANT Unavailable + Thang Diana Stanislav RP Unavailable [phone] Jelena David OD Unavailable Galo Burrell MD Unavailable Unavailable Livan Sharif MD Unavailable Livan Sharif MD Unavailable + Catherine Cm MD Unavailable + Valery Veronica PA-C Unavailable [phone] Catherine Cm MD Unavailable + Johnny Murillo MD Unavailable [phone] Brea Quinn JEWELRY SALES TANNING SALON ATTENDANT Unavailable [phone] Brea Quinn JEWELRY SALES TANNING SALON ATTENDANT Unavailable [phone] Jose Francisco Johnson MD Unavailable Livan Sharif MD Unavailable + Catherine Cm MD Unavailable + Sydnie Martinez RN Unavailable Unavailable Alfonso Renteria MD Unavailable Esha Grimm PA-C Primary Care Provider Chegn Todd PA-C Unavailable Radha Lomeli JEWELRY SALES TANNING SALON ATTENDANT Unavailable [phone] Jelena David OD Unavailable [phone] Pao Joseph RN Unavailable Unavailable Esha Grimm-C Unavailable [phone] Jeremías, Valery D PA-C Unavailable [phone] Rey Tay MD Unavailable Rocky Zepeda DO Unavailable Philip Dumont MD Unavailable [phone] Meredith CarreraC Unavailable [phone] Neil Kent MD Unavailable Juan Pablo Emmanuel MD Unavailable [phone] Audrey Waite PA-C Unavailable [phone] Encounter Details Date Type Department Care Team (Late st Contact Info) Description 04/28/2021 MyC Medical Advice [address] [address] Lauren Gan, RN Social History [...] you attend chur ch or mandaeism services? More than 4 times [...] Answer Date Recorded PHQ-2 Score 0 04/02/2021 [facility] of Occupat ional [facility] [...] in a retirement (including now)? No 08/11/2020 Baker Depression Scale Answer Date Recorded Baker Depression Score 5 01/14/2021 Last EPDS Self [...] Visit [facility] Neurosurgery [address] [facility] [address] [place] [phone] Ebony Cid, ARLENE TANNING SALON ATTENDANT 500 [place] [address] 03/27/2024 11:00 AM CDT Office Visit [facility] [place] [address] [facility] [place] [phone] Jelena David, 3305 [facility] [place] [address] 03/29/2024 3:30 PM CDT Therapy Visit [facility] [address] [facility] 160 [place] [address] Ingris Thompson, PT [facility] 516 [facility] 106 [place], [place] 443355 04/05/2024 2:10 PM CDT Therapy Visit [facility] [address] [facility] [address] [place] [phone] Ingris Thompson, PT [facility] 6 [facility] 106 [place], [place] 843195 04/19/2024 2:45 PM CDT Office Visit [address] [phone] Audrey Waite PA-C 420 [facility] [address], [facility] 603 [place], [place] 102165 05/08/2024 1:30 PM CDT Office Visit [facility] [address] [place] [phone] Lauren Claudio PA-C [address] [place], [place] [phone] Esha Grimm PA-C [address] [place] [address] 06/21/2024 2:00 PM FUSION ANALYST Office Visit [facility] - [address], [address] [place] [phone] [place] [address] [place] [address] Johnny Penn MD [address] [place], [place] [address] documented as of this encounter Visit Diagnoses Not on filedocumented in this encounter Additional Health Concerns Infection Onset Date Last Indicated Resolved Time Rule Out COVID-19 05/11/2021 05/11/2021 05/13/2021 10:18 AM CDT Rule Out COVID-19 07/13/2021 07/13/2021 07/14/2021 3:04 PM FUSION ANALYST Rule Out COVID-19 07/18/2021 07/18/2021 07/20/2021 1:56 PM FUSION ANALYST COVID-19 07/18/2021 07/18/2021 08/08/2021 11:3 9 PM FUSION ANALYST Rule Out COVID-19 12/18/2021 12/18/2021 12/19/2021 11:34 AM CDT Rule Out COVID-19 02/24/2022 02/24/2022 02/25/2022 1:08 PM CDT Rule Out COVID-19 04/26/2022 04/26/2022 04/26/2022 6:47 AM CDT Rule Out COVID-19 05/17/2022 05/17/2022 05/17/2022 10:20 PM FUSION ANALYST Rule Out COVID-19 06/09/2022 06/09/2022 06/09/2022 9:35 AM FUSION ANALYST COVID-19 06/09/2022 06/09/2022 06/30/2022 11:4 1 PM FUSION ANALYST Rule Out COVID-19 11/10/2022 11/10/2022 11/11/2022 12:17 PM CDT Rule Out COVID-19 03/07/2023 03/07/2023 03/07/2023 1:20 PM CDT Rule Out COVID-19 12/26/2023 12/26/2023 12/26/2023 9:50 AM CDT Assessment Noted Time PHQ-9 Depression Total Score: 2 04/02/20 21 10:19 AM CDT documented as of this encounter Care Teams Care Taker Relationship Specialty Start Date End Date Marija Edgar APRN TANNING SALON ATTENDANT PCP - General Nurse Practitioner 04/30/20 04/14/23 Esha Grimm PA-C [address] [place] [phone] PCP - General Family Medicine 05/04/23 Lita Oseguera Personal Advocate & Liaison (PAL) 02/28/20 03/27/23 Chanelle Mccann APRN CNM [address] [facility] 200 [place] [address] Assigned OBGYN Provider 05/02/2005/09 Marija Edgar APRN TANNING SALON ATTENDANT Assigned PCP 06/08/20 04/29/23 Mynor Broussard MD 6363 [facility] 500 [place] [address] Assigned Surgical Provider 06/01/20 11/28/21 Keisha Dotson MD 909 [place] [address] Assigned Neuroscience Provider 06/04/20 04/01/23 Galo Burrell MD Assigned Heart and Vascular Provider 10/05/20 04/02/22 Diana Desir, [facility] 3033 [place], [place] 377436 Pharmacist Pharmacist 04/17/21 Rain Galaviz PA-C [address] [place] [address] DR [place] [place] [address] Physician Coater Associate Dermatology 04/28/21 Summer Lara MD [address] [place] [address] [place] [address] Assigned OBGYN Provider 05/10/2105/23 Summer Lara MD [address] [place] [address] 452344 Assigned OBGYN Provider 05/31/21 Summer Lara MD [address] [place] [address] Assigned OBGYN Provider 05/24/2105/30 Tavia Wyatt MD [address] [place] [address] Dermatology 07/14/21 Johnny Murillo MD [address] [facility] [address] [place] [address] Assigned Musculoskeletal Provider 08/30/21 03/17/22 Erica Farrell APRN TANNING SALON ATTENDANT 6405 [facility] [address] [place] [address] Nurse Practitioner Cardiovascular Disease 09/09/21 Teresita Bean, [facility] [address] [place] [address] Pharmacist Pharmacist 09/24/21 09/29/21 Tavia Wyatt MD Assigned Surgical Provider 11/29/21 05/07/22 Diana Desir, [facility] 3033 [place] [address] Assigned MTM Pharmacist 01/02/22 Rich Barrett MD [address] [place] [address] Physician Ophthalmology 01/21/22 Neil Kent MD 500 [place] [address] Dermatology 02/24/22 Roney Story DPM [phone] [place] [address] [address] [place] [address] Assigned Musculoskeletal Provider 03/20/22 08/13/22 Erica Farrell APRN TANNING SALON ATTENDANT [address] [place] [address] Assigned Heart and Vascular Provider 04/03/22 04/16/22 Diana Desir, [facility] [address] [place] [address] Assigned MTM Pharmacist 04/07/22 Jelena David OD [address] [place] [address] [place] [address] Assigned Surgical Provider 05/08/22 10/08/22 Galo Burrell MD Assigned Heart and Vascular Provider 04/17/22 06/11/22 Livan Sharif MD [address], [facility] [address] [place] 674455 Cardiovascular Disease 05/14/22 Livan Sharif MD [address], [facility] [address] [place] 559005 Assigned Heart and Vascular Provider 06/12/22 07/23/22 Catherine Cm MD [address] [facility] [address] [place] 953255 Cardiovascular Disease 07/21/22 Valery Veronica, PA-C [address] [place] [address] 975795 Physician Coater Associate Dermatology 07/21/22 Catherine Cm MD [address] [facility]00 [place] 480365 Assigned Heart and Vascular Provider 07/24/22 11/05/22 Johnny Murillo MD [address] [place] [address] 822804 Assigned Musculoskeletal Provider 08/14/22 10/08/22 Brea Quinn APRN TANNING SALON ATTENDANT [address] [place] [address] 961185 Nurse Practitioner Dermatology 09/21/22 Brea Quinn APRN TANNING SALON ATTENDANT [address] [place] [address] [place] 847472 Assigned Surgical Provider 10/09/22 [place] [address] [facility] 300 [place] [address] Assigned Musculoskeletal Provider 10/09/22 Livan Sharif MD [address], [facility] [address] [place] 429705 Assigned Heart and Vascular Provider 11/06/22 11/12/22 Catherine Cm MD [address] [place] 504525 Assigned Heart and Vascular Provider 11/13/22 05/27/23 Sydnie Martinez RN Personal Advocate & Liaison (PAL) Family Medicine 03/28/23 07/31/23 Alfonso Renteria MD [address] [facility] 200 [place], [place] 925256 Assigned Neuroscience Provider 04/02/23 Cheng Todd PA-C [address] [place] [address] [phone] Assigned PCP 04/30/23 07/15/23 Radha Lomeli APRN TANNING SALON ATTENDANT [address] [place] 767375 Assigned Heart and Vascular Provider 05/28/23 Jelena David OD [address] [facility] [place] [address] Ophthalmology 06/15/23 Pao Joseph, VJ Personal Advocate & Liaison (PAL) Nurse 08/01/23 11/07/23 Esha Grimm PA-C [address] [place] [address]22[address]83 Assigned PCP 07/16/23 Valery Veronica PA-C [address] [place] [address] 293305 Physician Coater Associate Dermatology 09/19/23 Rey Tay MD [address] [place] [address] 587025 MD Gastroenterology 09/20/23 Rocky Zepeda DO [address] [place] [address] 231745 Physician Gastroenterology 09/20/23 Philip Dumont MD [address] [place] [address] 485055 Physician Ophthalmology 09/22/23 Meredith Carrera PA-C [address] [place] [address] Assigned Gastroenterology Provider 11/01/23 Neil Kent MD [address] [place] [address] Dermatology 11/02/23 [place] [address] [place] [address] Neurological Surgery 12/26/23 Audrey Waite PA-C 500 [place] [address] Physician Coater Associate Dermatology 02/28/24 documented as of this encounter
--- OUTSIDE RECORDS SUMMARY | 2024-03-23 16:05 | XMS_ITS | Encounter Summary ---
Author Organization [facility] Address [address] [place] [address] Care Team Providers Care It Training Specialist Name Role Phone Lita Oseguera Unavailable Unavailable Marija Edgar APRN MANAGER BAKERY Primary Care Provider + Marija Edgar APRN MANAGER BAKERY Unavailable [phone] Mynor Broussard MD Unavailable [phone] Keisha Dotson MD Unavailable [phone] Galo Burrell MD Unavailable Unavailable Diana Desir [facility] Unavailable [phone] Rain Galaviz PA-C Unavailable Summer Lara MD Unavailable [phone] Tavia Wyatt MD Unavailable Unavailable Johnny Murillo MD Unavailable Erica Farrell APRN MANAGER BAKERY Unavailable Teresita Bean [facility] Unavailable [phone] Tavia Wyatt MD Unavailable Unavailable Diana Desir [facility] Unavailable [phone] Rich Barrett MD Unavailable Neil Kent MD Unavailable Roney tSoryM Unavailable [phone] Erica Farrell SALES TRAINER MANAGER BAKERY Unavailable Diana Desir [facility] Unavailable [phone] Jelena David OD Unavailable [phone] Galo Burrell MD Unavailable Unavailable Livan Sharif MD Unavailable Livan Sharif MD Unavailable + Catherine Cm MD Unavailable + Valery Veronica PA-C Unavailable [phone] Catherine Cm MD Unavailable + Johnny Murillo MD Unavailable [phone] Brea Quinn SALES TRAINER MANAGER BAKERY Unavailable [phone] Brea Quinn SALES TRAINER MANAGER BAKERY Unavailable [phone] Jose Francisco Johnson MD Unavailable Livan Sharif MD Unavailable + IsCatherine hobbs MD Unavailable + Sydnie Martinez RN Unavailable Unavailable Alfonso Renteria MD Unavailable + [phone] Esha Grimm PA-C Primary Care Provider Cheng Todd PA-C Unavailable Radha Lomeli SALES TRAINER MANAGER BAKERY Unavailable [phone] Jelena David OD Unavailable Pao Joseph RN Unavailable Unavailable Esha Grimm PA-C Unavailable [phone] Valery Veronica PA-C Unavailable [phone] Rey Tay MD Unavailable Rocky Zepeda DO Unavailable Philip Dumont MD Unavailable [phone] Meredith Carrera PA-C Unavailable [phone] Neil Kent MD Unavailable Juan Pablo Emmanuel MD Unavailable [phone] Audrey Waite PA-C Unavailable [phone] Encounter Details Date Type Department Care Team (Late st Contact Info) Description 06/01/2021 MyC Medical Advice [facility] [id number] [place] [phone] Diana Desir, [facility] [address] [place] [address] Social History Tobacco Use Types [...] week 08/07/2020 How often do you attend [facility] or yarsanism services? More than 4 times [...] slept in a residential (including now)? No 08/11/2020 [place] Depression Scale Answer Date Recorded Newton [...] Therapy Management Provider, [facility] Pager: [phone] F LIBRARIAN CIRCULATION DEPARTMENT documented in this encounter Plan of Treatment Upcoming Encounters Date Type Department Care Team (Late st Contact Info) Description 03/26/2024 11:20 AM CDT Office Visit [facility] Spine and Neurosurgery [address] [place] [address] Ebony Cid, SALES TRAINER [facility] 500 [place] [address] 03/27/2024 11:00 AM CDT Office Visit [facility] Monserrat [address] [place] [phone] Frankie Jelena Garcia, [place] [address] [facility] [place] [address] 03/29/2024 3:30 PM CDT Therapy Visit [facility] [address] [facility] 160 [place] [phone] Ingris Thompson, PT [facility] [address] [place] [address] 106 [place] [address] 04/05/2024 2:10 PM CDT Therapy Visit [facility] [address] [facility] 160 [place] [phone] Ingris Thompson, PT [facility] [address] [place] [address] 106 [place] [address] 04/19/2024 2:45 PM CDT Office Visit [address] [phone] Audrey Waite PA-C 420 [facility] [address], [facility] 603 [place] [address] 05/08/2024 1:30 PM CDT Office Visit [facility] [address] [place] [phone] Lauren Claudio PA-C [address] [place], [place] [phone] Esha Grimm PA-C [address] [place] [address] 06/21/2024 2:00 PM CHIEF LIBRARIAN CIRCULATION DEPARTMENT Office Visit [facility] Neurology [facility] [address] [facility], [address] [place] [address] [place] [address] [place], [place] [address] Johnny Penn MD [address] [facility] [place] [place] [address] documented as of this encounter Visit Diagnoses Not on filedocumented in this encounter Additional Health Concerns Infection Onset Date Last Indicated Resolved Time Rule Out COVID-19 07/13/2021 07/13/2021 07/14/2021 3:04 PM CHIEF LIBRARIAN CIRCULATION DEPARTMENT Rule Out COVID-19 07/18/2021 07/18/2021 07/20/2021 1:56 PM CHIEF LIBRARIAN CIRCULATION DEPARTMENT COVID-19 07/18/2021 07/18/2021 08/08/2021 11:3 9 PM CHIEF LIBRARIAN CIRCULATION DEPARTMENT Rule Out COVID-19 12/18/2021 12/18/2021 12/19/2021 11:34 AM CDT Rule Out COVID-19 02/24/2022 02/24/2022 02/25/2022 1:08 PM CDT Rule Out COVID-19 04/26/2022 04/26/2022 04/26/2022 6:47 AM CDT Rule Out COVID-19 05/17/2022 05/17/2022 05/17/2022 10:20 PM CHIEF LIBRARIAN CIRCULATION DEPARTMENT Rule Out COVID-19 06/09/2022 06/09/2022 06/09/2022 9:35 AM CHIEF LIBRARIAN CIRCULATION DEPARTMENT COVID-19 06/09/2022 06/09/2022 06/30/2022 11:4 1 PM CHIEF LIBRARIAN CIRCULATION DEPARTMENT Rule Out COVID-19 11/10/2022 11/10/2022 11/11/2022 12:17 PM CDT Rule Out COVID-19 03/07/2023 03/07/2023 03/07/2023 1:20 PM CDT Rule Out COVID-19 12/26/2023 12/26/2023 12/26/2023 9:50 AM CDT Assessment Noted Time PHQ-9 Depression Total Score: 2 04/02/20 10:19 AM CDT documented as of this encounter Care Teams It Training Specialist Relationship Specialty Start Date End Date Marija Edgar APRN MANAGER BAKERY PCP - General Nurse Practitioner 04/30/20 04/14/23 Esha Grimm PA-C [address] [place] [phone] PCP - General Family Medicine 05/04/23 Lita Oseguera Personal Advocate & Liaison (PAL) 02/28/20 03/27/23 Marija Edgar APRN MANAGER BAKERY Assigned PCP 06/08/20 04/29/23 Mynor Broussard MD [address] [address] Assigned Surgical Provider 06/01/20 11/28/21 Keisha Dotson MD 909 [place] [address] Assigned Neuroscience Provider 06/04/20 04/01/23 Galo Burrell MD Assigned Heart and Vascular Provider 10/05/20 04/02/22 Diana Desir, [facility] [address] [place], [place] 424346 Pharmacist Pharmacist 04/17/21 Rain Galaviz PA-C [address] [place] [address] [place] [address] Physician Subway Conductor Dermatology 04/28/21 Summer Lara MD [address] [place], [place] 648434 Assigned OBGYN Provider 05/31/21 2 Tavia Wyatt MD [address] [place] [address] Dermatology 07/14/21 Johnny Murillo MD [address] [place], [place] 153264 Assigned Musculoskeletal Provider 08/30/21 03/17/22 Erica Farrell APRN MANAGER BAKERY [address] [facility] [address] [place], [place] 8[address] Nurse Practitioner Cardiovascular Disease 09/09/21 Teresita Bean, [facility] [address] [place] [address] Pharmacist Pharmacist 09/24/21 09/29/21 Tavia Wyatt MD Assigned Surgical Provider 11/29/21 05/07/22 Diana Desir, [facility] [address] [place] [address] Assigned MTM Pharmacist 01/02/22 Rich Barrett MD 516 [facility] 9[address] [place] [address] Physician Ophthalmology 01/21/22 Neil Kent MD 500 [place] [address] Dermatology 02/24/22 Roney Story DPM [address] [facility] [address] [place] [address] Assigned Musculoskeletal Provider 03/20/22 08/13/22 Erica Farrell APRN MANAGER BAKERY 1700 [place] [address] Assigned Heart and Vascular Provider 04/03/22 04/16/[address] [facility] [address] [place] [address] Assigned MTM Pharmacist 04/07/22 Jelena David OD [address] [facility] [place] [address] Assigned Surgical Provider 05/08/22 10/08/22 Galo Burrell MD Assigned Heart and Vascular Provider 04/17/22 06/11/22 Livan Sharif MD [address] [place] [address] Cardiovascular Disease 05/14/22 Livan Sharif MD [address] [place] [address] Assigned Heart and Vascular Provider 06/12/22 07/23/22 Catherine Cm MD [address] [facility] [place] [address] Cardiovascular Disease 07/21/22 Valery Veronica, [place] 909 [place] [address] Physician Subway Conductor Dermatology 07/21/22 Catherine Cm MD [address] [facility] [place] 828145 Assigned Heart and Vascular Provider 07/24/22 11/05/22 Johnny Murillo MD [address] [place] [address] 561314 Assigned Musculoskeletal Provider 08/14/22 10/08/22 Brea Quinn APRN MANAGER BAKERY [address] [place] [address] 986125 Nurse Practitioner Dermatology 09/21/22 Brea Quinn APRN MANAGER BAKERY [address] [place] [address] [facility] [place] [address]132 Assigned Surgical Provider 10/09/22 [place] [address] RAZO Formerly named [facility] [place] [address] Assigned Musculoskeletal Provider 10/09/22 Livan Sharif MD [address] [facility] [place] 826515 Assigned Heart and Vascular Provider 11/06/22 11/12/22 Catherine Cm MD [address] [place] [address] Assigned Heart and Vascular Provider 11/13/22 05/27/23 Sydnie Martinez RN Personal Advocate & Liaison (PAL) Family Medicine 03/28/23 07/31/23 Alfonso Renteria MD [address] [facility] [address] 200 [place], [place] 679916 Assigned Neuroscience Provider 04/02/23 Cheng Todd PA-C [address] [place] [address] [phone] Assigned PCP 04/30/23 07/15/23 Radha Lomeli APRN MANAGER BAKERY [address] [place] [address] Assigned Heart and Vascular Provider 05/28/23 Jelena David OD 3305 [facility] [place] [address] Ophthalmology 06/15/23 Pao Joseph, VJ Personal Advocate & Liaison (PAL) Nurse 08/01/23 11/07/23 Esha Grimm PA-C [address] [place] [phone] Assigned PCP 07/16/23 Valery Veronica PA-C 909 [place], [place] 248145 Physician Subway Conductor Dermatology 09/19/23 Rey Tay MD 909 [place] [address] MD Gastroenterology 09/20/23 Rokcy Zepeda DO 500 [place] [address] Physician Gastroenterology 09/20/23 Philip Dumont MD 516 [place], [place] 836295 Physician Ophthalmology 09/22/23 Meredith Carrera PA-C [address] [place] [address] 164925 Assigned Gastroenterology Provider 11/01/23 Neil Kent MD [address] [place] [address] 570860 Dermatology 11/02/23 [place] [address] [place] [address] Neurological Surgery 12/26/23 Audrey Waite PA-C 500 [place] [address] Physician Subway Conductor Dermatology 02/28/24 documented as of this encounter
--- OUTSIDE RECORDS SUMMARY | 2024-03-23 16:05 | XMS_ITS | Encounter Summary ---
Author Organization [facility] Address [address] [place] [address] Care Team Providers Care Motor Vehicle Dispatcher Name Role Phone Lita Oseguera Unavailable Unavailable Marija Edgar RADIOISOTOPE TECHNOLOGIST HISTOPATHOLOGIST Primary Care Provider + Chanelle Mccann RADIOISOTOPE TECHNOLOGIST CNM Unavailab le Marija Edgar APRN HISTOPATHOLOGIST Unavailable Mynor Broussard MD Unavailable [phone] Keisha Dotson MD Unavailable [phone] Galo Burrell MD Unavailable Unavailable Diana Desir [facility] Unavailable [phone] Rain Galaviz PA-C Unavailable Summer Lara MD Unavailable [phone] Summer Lara MD Unavailable [phone] Summer Lara MD Unavailable [phone] Tavia Wyatt MD Unavailable Unavailable Johnny Murillo MD Unavailable Erica Farrell RADIOISOTOPE TECHNOLOGIST HISTOPATHOLOGIST Unavailable Teresita Bean [facility] Unavailable [phone] Tavia Wyatt MD Unavailable Unavailable Desir, Diana T RPH Unavailable [phone] Rich Barrett MD Unavailable Neil Kent MD Unavailable Roney Story DPM Unavailable [phone] Erica Farrell RADIOISOTOPE TECHNOLOGIST HISTOPATHOLOGIST Unavailable + Thang Diana Stanislav RP Unavailable [phone] Jelena David OD Unavailable Galo Burrell MD Unavailable Unavailable Livan Sharif MD Unavailable Livan Sharif MD Unavailable + Catherine Cm MD Unavailable + Valery Veronica PA-C Unavailable [phone] Catherine Cm MD Unavailable + Johnny Murillo MD Unavailable [phone] Brea Quinn RADIOISOTOPE TECHNOLOGIST HISTOPATHOLOGIST Unavailable [phone] Brea Quinn RADIOISOTOPE TECHNOLOGIST HISTOPATHOLOGIST Unavailable [phone] Jose Francisco Johnson MD Unavailable Livan Sharif MD Unavailable + Catherine Cm MD Unavailable + Sydnie Martinez RN Unavailable Unavailable Alfonso Renteria MD Unavailable Esha Grimm PA-C Primary Care Provider Cheng Todd PA-C Unavailable Radha Lomeli RADIOISOTOPE TECHNOLOGIST HISTOPATHOLOGIST Unavailable [phone] Jelena David OD Unavailable [phone] Pao Joseph RN Unavailable Unavailable Esha Grimm-C Unavailable Jeremías, Valery D PA-C Unavailable [phone] Rey Tay MD Unavailable Rocky Zepeda DO Unavailable Philip Dumont MD Unavailable [phone] Meredith CarreraC Unavailable [phone] Neil Kent MD Unavailable Juan Pablo Emmanuel MD Unavailable [phone] Audrey Waite PA-C Unavailable [phone] Encounter Details Date Type Department Care Team (Late st Contact Info) Description 05/05/2021 MyC Medical Advice [address] [address] Lauren Gan, RN Social History [...] often do you attend chur ch or hoahaoism services? More than 4 times [...] 04/02/2021 [facility] - Occupational Stress Questionnaire Answer [...] in a snf (including now)? No 08/11/2020 [place] Depression Scale Answer Date Recorded [place] [...] [facility] Spine and Neurosurgery [address] [facility] [address] [place] [address] Ebony Cid, RADIOISOTOPE TECHNOLOGIST HISTOPATHOLOGIST 500 [place], [place] [address]645 03/27/2024 11:00 AM CDT Office Visit [facility] [place] [address] [facility] [address] [place] [address] Jelena David, [place] 3305 [facility] [place] [address] 03/29/2024 3:30 PM CDT Therapy Visit [facility] [address] [facility] 160 [place] [address] Ingris Thompson, PT [facility] 516 [facility] 106 [place], [place] [address] 04/05/2024 2:10 PM CDT Therapy Visit [facility] [address] [facility] [address] [place] [phone] Ingris Thompson, PT [facility] 6 [facility] 106 [place], [place] 486435 04/19/2024 2:45 PM CDT Office Visit [address] [phone] Audrey Waite PA-C 420 [facility] [address], [facility] 603 [place], [place] 691885 05/08/2024 1:30 PM CDT Office Visit [facility] [address] [place] [phone] Lauren Claudio PA-C [address] [place], [place] [phone] Esha Grimm PA-C [address] [place] [address] 06/21/2024 2:00 PM SPORTS COMMENTATOR Office Visit [facility] Neurology Clinics - [address], [address] [place] [phone] [place] [address] [place] [address] Johnny Penn MD [address] [place], [place] [address] documented as of this encounter Visit Diagnoses Not on filedocumented in this encounter Additional Health Concerns Infection Onset Date Last Indicated Resolved Time Rule Out COVID-19 05/11/2021 05/11/2021 05/13/2021 10:18 AM CDT Rule Out COVID-19 07/13/2021 07/13/2021 07/14/2021 3:04 PM SPORTS COMMENTATOR Rule Out COVID-19 07/18/2021 07/18/2021 07/20/2021 1:56 PM SPORTS COMMENTATOR COVID-19 07/18/2021 07/18/2021 08/08/2021 11:3 9 PM SPORTS COMMENTATOR Rule Out COVID-19 12/18/2021 12/18/2021 12/19/2021 11:34 AM CDT Rule Out COVID-19 02/24/2022 02/24/2022 02/25/2022 1:08 PM CDT Rule Out COVID-19 04/26/2022 04/26/2022 04/26/2022 6:47 AM CDT Rule Out COVID-19 05/17/2022 05/17/2022 05/17/2022 10:20 PM SPORTS COMMENTATOR Rule Out COVID-19 06/09/2022 06/09/2022 06/09/2022 9:35 AM SPORTS COMMENTATOR COVID-19 06/09/2022 06/09/2022 06/30/2022 11:4 1 PM SPORTS COMMENTATOR Rule Out COVID-19 11/10/2022 11/10/2022 11/11/2022 12:17 PM CDT Rule Out COVID-19 03/07/2023 03/07/2023 03/07/2023 1:20 PM CDT Rule Out COVID-19 12/26/2023 12/26/2023 12/26/2023 9:50 AM CDT Assessment Noted Time PHQ-9 Depression Total Score: 2 09/23/20 21 10:19 AM CDT documented as of this encounter Care Teams Motor Vehicle Dispatcher Relationship Specialty Start Date End Date Marija Edgar APRN HISTOPATHOLOGIST PCP - General Nurse Practitioner 04/30/20 04/14/23 Esha Grimm PA-C [address] [place] [phone] PCP - General Family Medicine 05/04/23 Lita Oseguera Personal Advocate & Liaison (PAL) 02/28/20 03/27/23 Chanelle Mccann APRN CNAdam [address] [facility] 200 [place] [address] Assigned OBGYN Provider 05/02/2005/09 Marija Edgar APRN HISTOPATHOLOGIST Assigned PCP 06/08/20 04/29/23 Mynor Broussard MD 6363 [facility] 500 [place] [address] Assigned Surgical Provider 06/01/20 11/28/21 Keisha Dotson MD 909 [place] [address] Assigned Neuroscience Provider 06/04/20 04/01/23 Galo Burrell MD Assigned Heart and Vascular Provider 10/05/20 04/02/22 Diana Desir, [facility] 3033 [place], [place] 271606 Pharmacist Pharmacist 04/17/21 Rain Galaviz PA-C [address] [place] [address] DR [place] [facility] [place] [address] Physician Boy'S Adviser Dermatology 04/28/21 Summer Lara MD [address] [place] [address] Assigned OBGYN Provider 05/10/2105/23 Summer Lara MD [address] [place] [address] Assigned OBGYN Provider 05/31/21 2 Summer Lara MD [address] [place] [address] Assigned OBGYN Provider 05/24/2105/30 Tavia Wyatt MD [address] [place] [address] Dermatology 07/14/21 Johnny Murillo MD [address] [facility] [address] [place] [address] Assigned Musculoskeletal Provider 08/30/21 03/17/22 Erica Farrell APRN HISTOPATHOLOGIST 6405 [facility] [address] [place] [address] Nurse Practitioner Cardiovascular Disease 09/09/21 Teresita Bean, [facility] [address] [place] [address] Pharmacist Pharmacist 09/24/21 09/29/21 Tavia Wyatt MD Assigned Surgical Provider 11/29/21 05/07/22 Diana Desir, [facility] 3033 [place] [address] Assigned MTM Pharmacist 01/02/22 Rich Barrett MD [address] [place] [address] Physician Ophthalmology 01/21/22 Neil Kent MD 500 [place] [address] Dermatology 02/24/22 Roney Story DPM [address] [facility] [address] [place] [address] Assigned Musculoskeletal Provider 03/20/22 08/13/22 Erica Farrell APRN HISTOPATHOLOGIST [address] [place] [address] Assigned Heart and Vascular Provider 04/03/22 04/16/22 Diana Desir, [facility] 3033 [place] [address] Assigned MTM Pharmacist 04/07/22 Jelena David OD [address] [place] [address] [place] [address] Assigned Surgical Provider 05/08/22 10/08/22 Galo Burrell MD Assigned Heart and Vascular Provider 04/17/22 06/11/22 Livan Sharif MD [address] [place] 043545 Cardiovascular Disease 05/14/22 Livan Sharif MD [address], [address] [place] [phone] Assigned Heart and Vascular Provider 06/12/22 07/23/22 Catherine Cm MD [address] [place] 513105 Cardiovascular Disease 07/21/22 Valery Veronica, PA-C [address] [place] [address] 701215 Physician Boy'S Adviser Dermatology 07/21/22 Catherine Cm MD [address] [facility] [address] [place] 345455 Assigned Heart and Vascular Provider 07/24/22 11/05/22 Johnny Murillo MD [address] [place] [address] 862194 Assigned Musculoskeletal Provider 08/14/22 10/08/22 Brea Quinn APRN HISTOPATHOLOGIST [address] [place] [address] [phone] Nurse Practitioner Dermatology 09/21/22 Brea Quinn APRN HISTOPATHOLOGIST [address] [place] [address] [place] 455592 Assigned Surgical Provider 10/09/22 [place] [address] [facility] 300 [place] [address] Assigned Musculoskeletal Provider 10/09/22 Livan Sharif MD [address], [facility] [address] [place] 0[address]15 Assigned Heart and Vascular Provider 11/06/22 11/12/22 Catherine Cm MD [address] [place] 963205 Assigned Heart and Vascular Provider 11/13/22 05/27/23 Sydnie Martinez RN Personal Advocate & Liaison (PAL) Family Medicine 03/28/23 07/31/23 Alfonso Renteria MD 5775 [facility] 200 [place], [place] 100256 Assigned Neuroscience Provider 04/02/23 Cheng Todd PA-C [address] [place] [address] [phone] Assigned PCP 04/30/23 07/15/23 Radha Lomeli, ARLENE HISTOPATHOLOGIST [address] [place] 585045 Assigned Heart and Vascular Provider 05/28/23 Jelena David OD [address] [facility] [place] [address] Ophthalmology 06/15/23 Pao Joseph, VJ Personal Advocate & Liaison (PAL) Nurse 08/01/23 11/07/23 Esha Grimm PA-C [address] [place] [address]62[address]83 Assigned PCP 07/16/23 Valery Veronica PA-C [address] [place] [address] 594285 Physician Boy'S Adviser Dermatology 09/19/23 Rey Tay MD [address] [place] [address] 854705 MD Gastroenterology 09/20/23 Rocky Zepeda DO [address] [place] [address] 821665 Physician Gastroenterology 09/20/23 Philip Dumont MD [address] [place] [address] 683945 Physician Ophthalmology 09/22/23 Meredith Carrera PA-C [address] [place] [address] Assigned Gastroenterology Provider 11/01/23 Neil Kent MD [address] [place] [address] Dermatology 11/02/23 [place] [address] [place] [address] Neurological Surgery 12/26/23 Audrey Waite PA-C 500 [place] [address] Physician Boy'S Adviser Dermatology 02/28/24 documented as of this encounter
--- OUTSIDE RECORDS SUMMARY | 2024-03-23 16:05 | XMS_ITS | Encounter Summary ---
Author Organization [place] Address [address] [place] [address] Care Team Providers Care Production Manufacturing Worker Name Role Phone Lita Oseguera Unavailable Unavailable Marija Edgar APRN TEAROOM HOSTESS Primary Care Provider + Marija Edgar APRN TEAROOM HOSTESS Unavailable [phone] Mynor Broussard MD Unavailable [phone] Keisha Dotson MD Unavailable Galo Burrell MD Unavailable Unavailable Diana Desir [facility] Unavailable Rain Galaviz PA-C Unavailable Summer Lara MD Unavailable [phone] Tavia Wyatt MD Unavailable Unavailable Johnny Murillo MD Unavailable Erica Farrell APRN TEAROOM HOSTESS Unavailable Teresita Bean [facility] Unavailable Tavia Wyatt MD Unavailable Unavailable Diana Desir [facility] Unavailable [phone] Rich Barrett MD Unavailable Neil Kent MD Unavailable Roney StoryM Unavailable [phone] Erica Farrell CUSTOMER SERVICE MANAGER TEAROOM HOSTESS Unavailable Diana Desir [facility] Unavailable [phone] Jelena David OD Unavailable [phone] Galo Burrell MD Unavailable Unavailable Livan Sharif MD Unavailable Livan Sharif MD Unavailable + Catherine Cm MD Unavailable + Valery Veronica PA-C Unavailable [phone] Catherine Cm MD Unavailable + Johnny Murillo MD Unavailable [phone] Brea Quinn CUSTOMER SERVICE MANAGER TEAROOM HOSTESS Unavailable [phone] Brea Quinn CUSTOMER SERVICE MANAGER TEAROOM HOSTESS Unavailable [phone] Jose Francisco Johnson MD Unavailable Livan Sharif MD Unavailable + IsCatherine hobbs MD Unavailable + Sydnie Martinez RN Unavailable Unavailable Alfonso Renteria MD Unavailable + [phone] Esha Grimm PA-C Primary Care Provider Cheng Todd PA-C Unavailable Radha Lomeli CUSTOMER SERVICE MANAGER TEAROOM HOSTESS Unavailable [phone] Jelena David OD Unavailable Pao Joseph RN Unavailable Unavailable Esha Grimm PA-C Unavailable [phone] Valery Veronica PA-C Unavailable [phone] Rey Tay MD Unavailable Rocky Zepeda DO Unavailable Philip Dumont MD Unavailable [phone] Meredith Carrera PA-C Unavailable [phone] Neil Kent MD Unavailable Juan Pablo Emmanuel MD Unavailable [phone] Audrey Waite PA-C Unavailable [phone] Encounter Details Date Type Department Care Team (Late st Contact Info) Description 06/03/2021 MyC Medical Advice [facility] [address] [place] [address] Diana Desir, [facility] [address] [place] [address] Social History Tobacco Use Types [...] week 08/07/2020 How often do you attend [facility] or taoist services? More than 4 times [...] in a penitentiary (including now)? No 08/11/2020 [place] Depression Scale Answer Date Recorded [place] Depression Score 5 01/14/2021 Last EPDS Self [...] [facility] Spine and Neurosurgery [address] [facility] [address] [place] [address] Ebony Cid, CUSTOMER SERVICE MANAGER TEAROOM HOSTESS 500 [place] [address] 03/27/2024 11:00 AM CDT Office Visit [facility] Keven German [address] [place] [address] Jelena David, [place] [address] [facility] [place] [address] 03/29/2024 3:30 PM CDT Therapy Visit [facility] Rehabilitation Services [address] [place] [phone] Ingris Thompson, PT [facility] 6 [facility] 106 [place], [place] [address] 04/05/2024 2:10 PM CDT Therapy Visit [facility] [place] [address] [facility] 160 [place] [address] Ingris Thompson, PT [facility] 6 [facility] 106 [place], [place] 6[address] 04/19/2024 2:45 PM CDT Office Visit [address] [phone] Audrey Waite PA-C 420 [facility] [address], [facility] 603 [place], [place] [address]255 05/08/2024 1:30 PM CDT Office Visit [facility] [address] [place] [address] Lauren Claudio PA-C [address] [place], [place] [phone] Esha Grimm PA-C [address] [place] [address] 06/21/2024 2:00 PM CORK TILE FLOOR LAYER Office Visit [facility] Neurology Clinics - [address], [address] [place] [address] [place] [address] [place], [place] 15[address] IsamarJohnny farnsworth MD [address] [place] [address] documented as of this encounter Visit Diagnoses Not on filedocumented in this encounter Additional Health Concerns Infection Onset Date Last Indicated Resolved Time Rule Out COVID-19 07/13/2021 07/13/2021 07/14/2021 3:04 PM CORK TILE FLOOR LAYER Rule Out COVID-19 07/18/2021 07/18/2021 07/20/2021 1:56 PM CORK TILE FLOOR LAYER COVID-19 07/18/2021 07/18/2021 08/08/2021 11:3 9 PM CORK TILE FLOOR LAYER Rule Out COVID-19 12/18/2021 12/18/2021 12/19/2021 11:34 AM CDT Rule Out COVID-19 02/24/2022 02/24/2022 02/25/2022 1:08 PM CDT Rule Out COVID-19 04/26/2022 04/26/2022 04/26/2022 6:47 AM CDT Rule Out COVID-19 05/17/2022 05/17/2022 05/17/2022 10:20 PM CORK TILE FLOOR LAYER Rule Out COVID-19 06/09/2022 06/09/2022 06/09/2022 9:35 AM CORK TILE FLOOR LAYER COVID-19 06/09/2022 06/09/2022 06/30/2022 11:4 1 PM CORK TILE FLOOR LAYER Rule Out COVID-19 11/10/2022 11/10/2022 11/11/2022 12:17 PM CDT Rule Out COVID-19 03/07/2023 03/07/2023 03/07/2023 1:20 PM CDT Rule Out COVID-19 12/26/2023 12/26/2023 12/26/2023 9:50 AM CDT Assessment Noted Time PHQ-9 Depression Total Score: 2 04/02/20 21 10:19 AM CDT documented as of this encounter Care Teams Production Manufacturing Worker Relationship Specialty Start Date End Date Marija Edgar APRN TEAROOM HOSTESS PCP - General Nurse Practitioner 10/21/20 10/5/23 Esha Grimm PA-C [address] [place] [address] PCP - General Family Medicine 05/04/23 Lita Oseguera Personal Advocate & Liaison (PAL) 02/28/20 03/27/23 Marija Edgar APRN TEAROOM HOSTESS Assigned PCP 06/08/20 04/29/23 Mynor Broussard MD 6363 [facility] 500 [place] [address] Assigned Surgical Provider 06/01/20 11/28/21 Keisha Dotson MD 909 [place], [place] 862325 Assigned Neuroscience Provider 06/04/20 04/01/23 Galo Burrell MD Assigned Heart and Vascular Provider 10/05/20 04/02/22 Diana Desir, [facility] [address] [place] [address] Pharmacist Pharmacist 04/17/21 Rain Galaviz PA-C [address] [place] [address] [address] 250 [facility] [place] [address] Physician Tank Cleaner Dermatology 04/28/21 Summer Lara MD [address] [place] [address]48104 Assigned OBGYN Provider 05/31/21 2 Tavia Wyatt MD [address] [address] Dermatology 07/14/21 Johnny Murillo MD [address] [place] [address] Assigned Musculoskeletal Provider 08/30/21 03/17/22 Erica Farrell, CUSTOMER SERVICE MANAGER TEAROOM HOSTESS [address] [place], [place] 3[address] Nurse Practitioner Cardiovascular Disease 09/09/21 Teresita Bean, [facility] [address] [place] [phone] Pharmacist Pharmacist 09/24/21 09/29/21 Tavia Wyatt MD Assigned Surgical Provider 11/29/21 05/07/22 [facility] 3033 [place] [address] Assigned MTM Pharmacist 01/02/22 Rich Barrett MD [address] [facility] 9A [place], [place] [address] Physician Ophthalmology 01/21/22 Neil Kent MD 500 [place], [place] [phone] Dermatology 02/24/22 [place] [address] [facility] [address] [place], [place] [address] Assigned Musculoskeletal Provider 03/20/22 08/13/22 Erica Farrell APRN TEAROOM HOSTESS 1700 [place] [address] Assigned Heart and Vascular Provider 04/03/22 04/16/22 Diana Desir, [facility] 30[address] [place] [address] Assigned MTM Pharmacist 04/07/22 Jelena David OD [address] [facility] [place] [address] Assigned Surgical Provider 05/08/22 10/08/22 Galo Burrell MD Assigned Heart and Vascular Provider 04/17/22 06/11/22 Livan Sharif MD [address] [place] [address] Cardiovascular Disease 05/14/22 Livan Sharif MD [address] [place] [address] Assigned Heart and Vascular Provider 06/12/22 07/23/22 Catherine Cm MD [address] [place] 07[address]65 Cardiovascular Disease 07/21/22 Valery Veronica, PAUcheC 909 [place] [address] Physician Tank Cleaner Dermatology 07/21/22 IsCatherine hobbs MD [address] [facility]00 [place] [address]25 Assigned Heart and Vascular Provider 07/24/22 11/05/22 Johnny Murillo MD [address] [address] Assigned Musculoskeletal Provider 08/14/22 10/08/22 Brea Quinn APRN TEAROOM HOSTESS 500 [place], [place] [phone] Nurse Practitioner Dermatology 09/21/22 Brea Quinn APRN TEAROOM HOSTESS 6401 [facility] [place] [address]272 Assigned Surgical Provider 10/09/22 [place] [address] [address] Assigned Musculoskeletal Provider 10/09/22 Livan Sharif MD [address] [facility]00 [place] [address] Assigned Heart and Vascular Provider 11/06/22 11/12/22 Catherine Cm MD [address] [facility] [address] [place] 467[address] Assigned Heart and Vascular Provider 11/13/22 05/27/23 Sydnie Martinez RN Personal Advocate & Liaison (PAL) Family Medicine 03/28/23 07/31/23 Alfonso Renteria MD 5775 [facility] [address]NI 200 [place] [address] Assigned Neuroscience Provider 04/02/23 Cheng Todd PA-C [address] [place] [address] Assigned PCP 04/30/23 07/15/23 Radha Lomeli APRN TEAROOM HOSTESS 6405 [facility] [address] [place], [place] [address] Assigned Heart and Vascular Provider 05/28/23 Jelena David OD [address] [facility] [place] [address] Ophthalmology 06/15/23 Pao Joseph, VJ Personal Advocate & Liaison (PAL) Nurse 08/01/23 11/07/23 Esha Grimm PA-C [address] [place] [address] Assigned PCP 07/16/23 Valery Veronica PA-C [address] [place] [address] 040345 Physician Tank Cleaner Dermatology 09/19/23 Rey Tay MD [address] [place] [address] 300225 Gastroenterology 09/20/23 Rocky Zepeda DO [address] [place] [address] 031535 Physician Gastroenterology 09/20/23 Philip Dumont MD 516 [place] [address] Physician Ophthalmology 09/22/23 Meredith Carrera PA-C [address] [place] [address] Assigned Gastroenterology Provider 11/01/23 Neil Kent MD [address] [place] [address] Dermatology 11/02/23 [place] [address] [address] Neurological Surgery 12/26/23 Audrey Waite PA-C 500 [place] [address] Physician Tank Cleaner Dermatology 02/28/24 documented as of this encounter
--- OUTSIDE RECORDS SUMMARY | 2024-03-23 16:06 | XMS_ITS | Encounter Summary ---
Author Organization [place] Address [address] [place] [address] Care Team Providers Care Master Mechanic Name Role Phone Lita Oseguera Unavailable Unavailable Marija Edgar APRN PORTFOLIO ACCOUNTANT Primary Care Provider + Chanelle Mccann INVOICE CLERK CNM Unavailab le Kyara De La Fuente RN Unavailable [phone] Marija Edgar APRN PORTFOLIO ACCOUNTANT Unavailable [phone] Mynor Broussard MD Unavailable [phone] Keisha Dotson MD Unavailable [phone] Stacey Briones SCHOOL COMMISSIONER Unavailable Mary Mejia Unavailable Unavailable Galo Burrell MD Unavailable Unavailable Cristina Wood Unavailable Lesley Moody CHW Unavailable Meredith Bedoya Unavailable Unavailable Cristina Wood Unavailable Diana Desir [facility] Unavailable [phone] Rain Galaviz PA-C Unavailable Summer Lara MD Unavailable [phone] Summer Lara MD Unavailable [phone] Summer Lara MD Unavailable [phone] Tavia Wyatt MD Unavailable Unavailable Johnny Murillo MD Unavailable +1- Erica Farrell INVOICE CLERK PORTFOLIO ACCOUNTANT Unavailable + Teresita Bean [facility] Unavailable Tavia Wyatt MD Unavailable Unavailable Diana Desir [facility] Unavailable [phone] Rich Barrett MD Unavailable Neil Kent MD Unavailable Roney Story DPM Unavailable [phone] Bud, Erica Guidry INVOICE CLERK PORTFOLIO ACCOUNTANT Unavailable + Diana Desir [facility] Unavailable [phone] Jelena David Unavailable [phone] Galo Burrell MD Unavailable Unavailable Livan Sharif MD Unavailable + Livan Sharif MD Unavailable + Catherine Cm MD Unavailable + Valery Veronica PA-C Unavailable +[phone] Catherine Cm MD Unavailable + Johnny Murillo MD Unavailable +1- Brea Quinn INVOICE CLERK PORTFOLIO ACCOUNTANT Unavailable +[phone] Brea Quinn INVOICE CLERK PORTFOLIO ACCOUNTANT Unavailable [phone] Jose Francisco Johnson MD Unavailable + Livan Sharif MD Unavailable + Catherine Cm MD Unavailable + Sydnie Martinez RN Unavailable Unavailable Alfonso Renteria MD Unavailable [phone] Esha Grimm PA-C Primary Care Provider Cheng Todd PA-C Unavailable LomeliRadha APRN PORTFOLIO ACCOUNTANT Unavailable Jelena David OD Unavailable Pao Joseph RN Unavailable Unavailable Esha Grimm PA-C Unavailable [phone] Valery Veronica PA-C Unavailable [phone] Rey Tay MD Unavailable Rocky Zepeda DO Unavailable Philip Dumont MD Unavailable [phone] Meredith Carrera PA-C Unavailable [phone] Neil Kent MD Unavailable Juan Pablo Emmanuel MD Unavailable [phone] Audrey Waite PA-C Unavailable [phone] Encounter Details Date Type Department Care Team (Late st Contact Info) Description 10/02/2020 [facility] Medical Advice [facility] Care Coordination [address] [place] [address] Stacey Briones, [facility] Social History Tobacco Use Types [...] you attend chur ch or temple services? More than 4 times per year [...] Answer Date Recorded PHQ-2 Score 3 09/29/2020 [facility] of Occupat [...] [facility] Spine and Neurosurgery [address] [place] [phone] Ebony Cid, INVOICE CLERK [facility] 500 [place] [address] 03/27/2024 11:00 AM CDT Office Visit [facility] [place] [address] [facility] [address] [place] [phone] Jelena David, [address] [facility] [address] [place] [address] 03/29/2024 3:30 PM CDT Therapy Visit [facility] [address] [facility] 160 [place] [phone] Ingris Thompson, PT [facility] [address] [place] [address] 106 [place], [place] [address]695 04/05/2024 2:10 PM CDT Therapy Visit [facility] [address] [place] [address] 160 [place] [address] Ingris Thompson, PT [facility] [address] [place] [address] 106 [place] [address] 04/19/2024 2:45 PM CDT Office Visit [address] [phone] Audrey Waite PA-C 420 [facility] B385, [facility] 603 [place], [place] 3[address] 05/08/2024 1:30 PM CDT Office Visit [facility] [address] [place] [address] Lauren Claudio PA-C [address] [place] [address] Esha Grimm PA-C [address] [place] [address] 06/21/2024 2:00 PM CEMENT MIXER DRIVER Office Visit [facility] Neurology [facility] [address] [facility], [address] [place] [address] [place] [address] [place] [address] Johnny Penn MD [address] [place], [place] [phone] documented as of this encounter Visit Diagnoses Not on filedocumented in this encounter Additional Health Concerns Infection Onset Date Last Indicated Resolved Time Rule Out COVID-19 11/05/2020 11/05/2020 11/06/2020 1:09 PM CDT Rule Out COVID-19 05/11/2021 05/11/2021 05/13/2021 10:18 AM CDT Rule Out COVID-19 07/13/2021 07/13/2021 07/14/2021 3:04 PM CEMENT MIXER DRIVER Rule Out COVID-19 07/18/2021 07/18/2021 07/20/2021 1:56 PM CEMENT MIXER DRIVER COVID-19 07/18/2021 07/18/2021 08/08/2021 11:3 9 PM CEMENT MIXER DRIVER Rule Out COVID-19 12/18/2021 12/18/2021 12/19/2021 11:34 AM CDT Rule Out COVID-19 02/24/2022 02/24/2022 02/25/2022 1:08 PM CDT Rule Out COVID-19 04/26/2022 04/26/2022 04/26/2022 6:47 AM CDT Rule Out COVID-19 05/17/2022 05/17/2022 05/17/2022 10:20 PM CEMENT MIXER DRIVER Rule Out COVID-19 06/09/2022 06/09/2022 06/09/2022 9:35 AM CEMENT MIXER DRIVER COVID-19 06/09/2022 06/09/2022 06/30/2022 11:4 1 PM CEMENT MIXER DRIVER Rule Out COVID-19 11/10/2022 11/10/2022 11/11/2022 12:17 PM CDT Rule Out COVID-19 03/07/2023 03/07/2023 03/07/2023 1:20 PM CDT Rule Out COVID-19 12/26/2023 12/26/2023 12/26/2023 9:50 AM CDT Assessment Noted Time PHQ-9 Depression Total Score: 6 09/30/19 3:25 PM CDT documented as of this encounter Care Teams Master Mechanic Relationship Specialty Start Date End Date Marija Edgar APRN PORTFOLIO ACCOUNTANT PCP - General Nurse Practitioner 04/30/20 04/14/23 Esha Grimm PA-C [address] [place] [phone] PCP - General Family Medicine 05/04/23 Lita Oseguera Personal Advocate & Liaison (PAL) 02/28/20 03/27/23 Chanelle Mccann APRN CNM [address] [address] [place] [address] Assigned OBGYN Provider 05/02/2005/09 Kyara De La Fuente, RN Specialty [facility] [place] Neurology 06/04/20 03/05/21 Marija Edgar APRN PORTFOLIO ACCOUNTANT Assigned PCP 06/08/20 04/29/23 Mynor Broussard MD 6363 [facility] 500 [place] [address] Assigned Surgical Provider 06/01/20 11/28/21 Keisha Dotson MD 909 [place], [place] 635075 Assigned Neuroscience Provider 06/04/20 04/01/23 Stacey Briones, [facility] Lead [facility] Primary Care - CC 08/11/2012/30 Mary Mejia Financial Resource Worker 09/02/20 10/06/20 Galo Burrell MD Assigned Heart and Vascular Provider 10/05/20 04/02/22 Cristina Wood Financial Resource Worker 10/07/20 10/14/20 Lesley Moody, [facility] Community Health Worker 10/23/2012/30 Meredith Bedoya Financial Resource Worker 10/23/20 11/23/20 Cristina Wood Financial Resource Worker 02/09/21 02/09/21 Diana Desir, [facility] 3033 [place], [place] 441086 Pharmacist Pharmacist 04/17/21 Rain Galaviz PA-C [address] [place] [address] [address] [place], [place] [phone] Physician Fuel Technician Dermatology 04/28/21 Summer Lara MD [address] [place] [address] Assigned OBGYN Provider 05/10/2105/23 Summer Lara MD [address] [place] [address] Assigned OBGYN Provider 05/31/21 2 Summer Lara MD [address] [place] [address] Assigned OBGYN Provider 05/24/2105/30 Tavia Wyatt MD [address] [place] [address] Dermatology 07/14/21 Johnny Murillo MD [address] [facility] [address] [place] [address] Assigned Musculoskeletal Provider 08/30/21 03/17/22 Erica Farrell APRN PORTFOLIO ACCOUNTANT 6405 [facility] [address] [place] [address] Nurse Practitioner Cardiovascular Disease 09/09/21 Teresita Bean [facility] 1440 [place], [place] [phone] Pharmacist Pharmacist 09/24/21 09/29/21 Tavia Wyatt MD Assigned Surgical Provider 11/29/21 05/07/22 [facility] 3033 [place] [address] Assigned MTM Pharmacist 01/02/22 Rich Barrett MD [address] [address] Physician Ophthalmology 01/21/22 Neil Kent MD 500 [place] [address] Dermatology 02/24/22 Roney Story DPM [address] [facility] [address] [place] [address] Assigned Musculoskeletal Provider 03/20/22 08/13/22 Erica Farrell APRN PORTFOLIO ACCOUNTANT 1700 [place] [address] Assigned Heart and Vascular Provider 04/03/22 04/16/22 Diana Desir, [facility] 3033 [place] [address] Assigned MTM Pharmacist 04/07/22 Jelena David OD 3[address] [facility] [place] [address] Assigned Surgical Provider 05/08/22 10/08/22 Galo Burrell MD Assigned Heart and Vascular Provider 04/17/22 06/11/22 Livan Sharif MD [address] [place] [address] Cardiovascular Disease 05/14/22 Livan Sharif MD [address] [place] [address] Assigned Heart and Vascular Provider 06/12/22 07/23/22 Catherine Cm MD [address] [place] [address] Cardiovascular Disease 07/21/22 Valery Veronica PA-C 9 [place], [place] 526285 Physician Fuel Technician Dermatology 07/21/22 Catherine Cm MD [address] [place] [address] Assigned Heart and Vascular Provider 07/24/22 11/05/22 Johnny Murillo MD [address] [place] [address] Assigned Musculoskeletal Provider 08/14/22 10/08/22 Brea Quinn APRN PORTFOLIO ACCOUNTANT [address] [place] [address] Nurse Practitioner Dermatology 09/21/22 Brea Quinn APRN PORTFOLIO ACCOUNTANT [address] [place] [address] Assigned Surgical Provider 10/09/22 [place] [address] [address] Assigned Musculoskeletal Provider 10/09/22 Livan Sharif MD [address] Sylvia, [facility]00 [place] [address] Assigned Heart and Vascular Provider 11/06/22 11/12/22 Catherine Cm MD [address] [facility]00 [place] [address] Assigned Heart and Vascular Provider 11/13/22 05/27/23 Sydnie Martinez, RN Personal Advocate & Liaison (PAL) Family Medicine 03/28/23 07/31/23 Alfonso Renteria MD [address] [facility] 200 [place], [place] 632586 Assigned Neuroscience Provider 04/02/23 Cheng Todd PA-C [address] [place] [address] [phone] Assigned PCP 04/30/23 07/15/23 Radha Lomeli APRN PORTFOLIO ACCOUNTANT 6405 [facility] [address] [place], [place] 555[address]95 Assigned Heart and Vascular Provider 05/28/23 Jelena David OD 3305 [facility] [address] [place] [id number] Ophthalmology 06/15/23 Pao Joseph RN Personal Advocate & Liaison (PAL) Nurse 08/01/23 11/07/23 Esha Grimm PA-C [address] [place] [address] Assigned PCP 07/16/23 Valery Veronica PA-C [address] [place] [address] 914585 Physician Fuel Technician Dermatology 09/19/23 Rey Tay MD [address] [place] [address] 775925 MD Gastroenterology 09/20/23 Rocky Zepeda DO 500 [place], [place] 523035 Physician Gastroenterology 09/20/23 Philip Dumont MD 516 [place], [place] 616455 Physician Ophthalmology 09/22/23 Meredith Carrera PA-C 909 [place], [place] 256505 Assigned Gastroenterology Provider 11/01/23 Neil Kent MD [address] [address] Dermatology 11/02/23 [place] [address] 516397 Neurological Surgery 12/26/23 Audrey Waite PA-C 500 [place] [address] Physician Fuel Technician Dermatology 02/28/24 documented as of this encounter
--- OUTSIDE RECORDS SUMMARY | 2024-03-23 16:06 | XMS_ITS | Encounter Summary ---
Author Organization [facility] Address [address] [place] [address] Care Team Providers Care Pollution Control Chemist Name Role Phone Lita Oseguera Unavailable Unavailable Marija Edgar SHOE TRIMMER PIPE CLEANER Primary Care Provider + Chanelle Mccann SHOE TRIMMER CNM Unavailab le Kyara De La Fuente RN Unavailable [phone] Marija Edgar APRN PIPE CLEANER Unavailable [phone] Mynor Broussard MD Unavailable [phone] Keisha Dotson MD Unavailable Galo Burrell MD Unavailable Unavailable Cristina Wood Unavailable Diana Desir [facility] Unavailable [phone] Rain Galaviz PA-C Unavailable Summer Lara MD Unavailable [phone] Summer Lara MD Unavailable [phone] Summer Lara MD Unavailable [phone] Tavia Wyatt MD Unavailable Unavailable Johnny Murillo MD Unavailable Erica Farrell APRN PIPE CLEANER Unavailable Teresita Bean Walter [facility] Unavailable Tavia Wytat MD Unavailable Unavailable Diana Desir [facility] Unavailable [phone] Rich Barrett MD Unavailable [phone] Neil Kent MD Unavailable Roney StoryM Unavailable [phone] Erica Farrell SHOE TRIMMER PIPE CLEANER Unavailable + Diana Desir [facility] Unavailable [phone] Jelena David OD Unavailable Galo Burrell MD Unavailable Unavailable Livan Sharif MD Unavailable + Livan Sharif MD Unavailable + Catherine Cm MD Unavailable + Valery Veronica PA-C Unavailable [phone] Catherine Cm MD Unavailable + Johnny Murillo MD Unavailable [phone] Brea Quinn SHOE TRIMMER PIPE CLEANER Unavailable [phone] Brea Quinn SHOE TRIMMER PIPE CLEANER Unavailable [phone] Jose Francisco Johnson MD Unavailable Livan Sharif MD Unavailable + Catherine Cm MD Unavailable + Sydnie Martinez RN Unavailable Unavailable Alfonso Renteria MD Unavailable [phone] Esha Grimm PA-C Primary Care Provider Cheng Todd PA-C Unavailable Radha Lomeli SHOE TRIMMER PIPE CLEANER Unavailable [phone] Jelena David OD Unavailable Pao Joseph RN Unavailable Unavailable Alfa Esha M PA-C Unavailable [phone] Valery Veronica PA-C Unavailable Rey aTy MD Unavailable Rocky Zepeda DO Unavailable Philip Dumont MD Unavailable [phone] Meredith Carrera PA-C Unavailable [phone] Neil Kent MD Unavailable Juan Pablo Emmanuel MD Unavailable [phone] Audrey Waite PA-C Unavailable [phone] Encounter Details Date Type Department Care Team (Late st Contact Info) Description 02/06/[address] [address] [facility] Social History Tobacco Use Types Packs/Day Years [...] you attend chur ch or lutheran services? More than 4 times [...] Answer Date Recorded PHQ-2 Score 3 09/29/2020 [facility] [...] in a mcfp (including now)? No 08/11/2020 Welch Depression Scale Answer Date Recorded Welch Depression Score 5 01/14/2021 Last EPDS Self [...] Description 03/26/2024 11:20 AM CDT Office Visit [facility] Spine and Neurosurgery [address] [facility] [address] [place] [address] Ebony Cid APRN PIPE CLEANER 500 [place] [address] 03/27/2024 11:00 AM CDT Office Visit [facility] [address] [facility] [address] [place] [address] Jelena David, [place] [address] [facility] [place] [address] 03/29/2024 3:30 PM CDT Therapy Visit [facility] 64134 [facility] 160 [place] [phone] Ingris Thompson, PT [facility] [address] [place] [address] 106 [place], [place] [address] 04/05/2024 2:10 PM CDT Therapy Visit [facility] 16818 [facility] 160 [place] [phone] Ingris Thompson, PT [facility] [address] [place] [address] 106 [place] [address] 04/19/2024 2:45 PM CDT Office Visit [address] [address] Audrey Waite PA-C 420 [facility] [address], [facility] 603 [place] [address] 05/08/2024 1:30 PM CDT Office Visit [facility] [address] [place] [phone] Lauren Claudio PA-C [address] [place], [place] [phone] Esha Grimm PA-C [address] [place] [phone] 06/21/2024 2:00 PM WELDER TECH Office Visit [facility] Neurology Clinics - [address], [address] [place] [phone] [place] [address] [place], [place] 2726[address] Johnny Penn MD [address] [place], [place] 815435 documented as of this encounter Visit Diagnoses Not on filedocumented in this encounter Additional Health Concerns Infection Onset Date Last Indicated Resolved Time Rule Out COVID-19 05/11/2021 05/11/2021 05/13/2021 10:18 AM CDT Rule Out COVID-19 07/13/2021 07/13/2021 07/14/2021 3:04 PM WELDER TECH Rule Out COVID-19 07/18/2021 07/18/2021 07/20/2021 1:56 PM WELDER TECH COVID-19 07/18/2021 07/18/2021 08/08/2021 11:3 9 PM WELDER TECH Rule Out COVID-19 12/18/2021 12/18/2021 12/19/2021 11:34 AM CDT Rule Out COVID-19 02/24/2022 02/24/2022 02/25/2022 1:08 PM CDT Rule Out COVID-19 04/26/2022 04/26/2022 04/26/2022 6:47 AM CDT Rule Out COVID-19 05/17/2022 05/17/2022 05/17/2022 10:20 PM WELDER TECH Rule Out COVID-19 06/09/2022 06/09/2022 06/09/2022 9:35 AM WELDER TECH COVID-19 06/09/2022 06/09/2022 06/30/2022 11:4 1 PM WELDER TECH Rule Out COVID-19 11/10/2022 11/10/2022 11/11/2022 12:17 PM CDT Rule Out COVID-19 03/07/2023 03/07/2023 03/07/2023 1:20 PM CDT Rule Out COVID-19 12/26/2023 12/26/202312/26/2023 9:50 AM CDT Assessment Noted Time PHQ-9 Depression Total Score: 6 09/30/19 21 3:25 PM CDT documented as of this encounter Care Teams Pollution Control Chemist Relationship Specialty Start Date End Date Marija Edgar APRN PIPE CLEANER PCP - General Nurse Practitioner 04/30/20 04/14/23 Esha Grimm PA-C [address] [place] [address] PCP - General Family Medicine 05/04/23 Lita Oseguera Personal Advocate & Liaison (PAL) 02/28/20 03/27/23 Chanelle Mccann APRN CNM [address] [place] [address] 200 [place], [place] 551347 Assigned OBGYN Provider 05/02/2005/09 Kyara De La Fuente, RN Specialty Street Openings Inspector Neurology 06/04/20 03/05/21 Marija Edgar APRN PIPE CLEANER Assigned PCP 06/08/20 04/29/23 Mynor Broussard MD 6363 [facility] 500 [place], [place] 956665 Assigned Surgical Provider 06/01/20 11/28/21 Keisha Dotson MD 909 [place] [address] Assigned Neuroscience Provider 06/04/20 04/01/23 Galo Burrell MD Assigned Heart and Vascular Provider 10/05/20 04/02/22 Cristina Wood Financial Resource Worker 02/09/21 02/09/21 Diana Desir, [facility] [address] [place] [address] Pharmacist Pharmacist 04/17/21 Rain Galaviz PA-C [address] [place] [address] [place] [address] Physician Skein Mercerizing Machine Operator Dermatology 04/28/21 Summer Lara MD 606 24[facility] [place] [address] Assigned OBGYN Provider 05/10/2105/23 Summer Lara MD [address] [place], [place] 483784 Assigned OBGYN Provider 05/31/21 Summer Lara MD [address] [address] Assigned OBGYN Provider 05/24/2105/30 Tavia Wyatt MD [address] [address] Dermatology 07/14/21 Johnny Murillo MD [address] [place] [address] Assigned Musculoskeletal Provider 08/30/21 03/17/22 Erica Farrell APRN PIPE CLEANER 6405 [facility] [address] [place] [address] Nurse Practitioner Cardiovascular Disease 09/09/21 Teresita Bean [facility] [address] [facility] [address] Pharmacist Pharmacist 09/24/21 09/29/21 Tavia Wyatt MD Assigned Surgical Provider 11/29/21 05/07/22 Diana Desir, [facility] 3033 [place] [address] Assigned MTM Pharmacist 01/02/22 Rich Barrett MD [address] [id number] Physician Ophthalmology 01/21/22 Neil Kent MD 500 [place], [place] [address]885 Dermatology 02/24/22 Roney Story DPM 80238 [facility] 300 [place] [address] Assigned Musculoskeletal Provider 03/20/22 08/13/22 Erica Farrell APRN PIPE CLEANER 1700 [place] [address] Assigned Heart and Vascular Provider 04/03/22 04/16/22 Diana Desir, [facility] 3033 [place] [address] Assigned MTM Pharmacist 04/07/22 Frankie Jelena TempletonSONJA woods [address] [facility] [place] [address] Assigned Surgical Provider 05/08/22 10/08/22 Galo Burrell MD Assigned Heart and Vascular Provider 04/17/22 06/11/22 Livan Sharif MD [address] [place] [address] Cardiovascular Disease 05/14/22 Livan Sharif MD [address] [place] [address] Assigned Heart and Vascular Provider 06/12/22 07/23/22 Catherine Cm MD [address] [address] [place] [address] Cardiovascular Disease 07/21/22 Valery Veronica, PA-C 909 [place] [address] Physician Skein Mercerizing Machine Operator Dermatology 07/21/22 Catherine Cm MD [address] [address] [place] [address] Assigned Heart and Vascular Provider 07/24/22 11/05/22 Johnny Murillo MD [address] 476904 Assigned Musculoskeletal Provider 08/14/22 10/08/22 Brea Quinn APRN PIPE CLEANER 500 [place] [address] Nurse Practitioner Dermatology 09/21/22 Brea Quinn APRN PIPE CLEANER 6401 [facility] [place] [address] Assigned Surgical Provider 10/09/22 [place] [address] [facility] 300 [place] [address] Assigned Musculoskeletal Provider 10/09/22 Livan Sharif MD [address], [facility] [address] [place] [address] Assigned Heart and Vascular Provider 11/06/22 11/12/22 Catherine Cm MD [address] [facility] [address] [place] 552585 Assigned Heart and Vascular Provider 11/13/22 05/27/23 Sydnie Martinez, VJ Personal Advocate & Liaison (PAL) Family Medicine 03/28/23 07/31/23 Alfonso Renteria MD 5775 [facility] 200 [place] [address] Assigned Neuroscience Provider 04/02/23 Cheng Todd PA-C [address] [place] [address] Assigned PCP 04/30/23 07/15/23 Radha Lomeli APRN PIPE CLEANER [address] [place] [address] Assigned Heart and Vascular Provider 05/28/23 Jelena David OD [address] [facility] [place] [address] MD Ophthalmology 06/15/23 Pao Joseph, RN Personal Advocate & Liaison (PAL) Nurse 08/01/23 11/07/23 Esha Grimm PA-C [address] [place] [phone] Assigned PCP 07/16/23 Valery Veronica PA-C [address] [place] [address] 446845 Physician Skein Mercerizing Machine Operator Dermatology 09/19/23 Rey Tay MD [address] [place] [address] 321055 Gastroenterology 09/20/23 Rocky Zepeda DO [address] [place] [address] 638175 Physician Gastroenterology 09/20/23 Philip Dumont MD [address] [place] [address] 138595 Physician Ophthalmology 09/22/23 Meredith Carrera PA-C [address] [place] [address] 260115 Assigned Gastroenterology Provider 11/01/23 Neil [place] MD [address] [place] [address] 947480 Dermatology 11/02/23 [place] [address] [address] Neurological Surgery 12/26/23 Audrey Waite PAUcheC 500 [place], [place] 911325 Physician Skein Mercerizing Machine Operator Dermatology 02/28/24 documented as of this encounter
--- OUTSIDE RECORDS SUMMARY | 2024-03-23 16:06 | XMS_ITS | Encounter Summary ---
Author Organization [facility] Address [address] [place] [address] Care Team Providers Care Cigarette Inspector Name Role Phone Lita Oseguera Unavailable Unavailable Marija Edgar POWERTRAIN DESIGN ENGINEER CLAY SHOP SUPERVISOR Primary Care Provider + Chanelle Mccann POWERTRAIN DESIGN ENGINEER CNM Unavailab le Kyara De La Fuente RN Unavailable [phone] Marija Edgar APRN CLAY SHOP SUPERVISOR Unavailable Mynor Broussard MD Unavailable [phone] Keisha Dotson MD Unavailable [phone] Stacey Briones LEATHER GOODS I ASSEMBLER Unavailable [phone] Galo Burrell MD Unavailable Unavailable Lesley Moody CHW Unavailable [phone] Meredith Bedoya Unavailable Unavailable Cristina Wood Unavailable Diana Desir [facility] Unavailable Rain Galaviz PA-C Unavailable Summer Lara MD Unavailable Summer Lara MD Unavailable [phone] Summer Lara MD Unavailable [phone] Tavia Wyatt MD Unavailable Unavailable SembraJohnny ortiz MD Unavailable [phone] Erica Farrell POWERTRAIN DESIGN ENGINEER CLAY SHOP SUPERVISOR Unavailable + Teresita Bean [facility] Unavailable Tavia Wyatt MD Unavailable Unavailable ThangDiana [facility] Unavailable [phone] Rich Barrett MD Unavailable [phone] Neil Kent MD Unavailable Roney Story DPM Unavailable [phone] Erica Farrell POWERTRAIN DESIGN ENGINEER CLAY SHOP SUPERVISOR Unavailable + ThangDiana [facility] Unavailable [phone] Frankie Jelena Garcia OD Unavailable [phone] Galo Burrell MD Unavailable Unavailable Livan Sharif MD Unavailable + Livan Sharif MD Unavailable + Catherine Cm MD Unavailable + Valery Veronica PA-C Unavailable [phone] Catherine Cm MD Unavailable + Johnny Murillo MD Unavailable +[phone] Brea Quinn POWERTRAIN DESIGN ENGINEER CLAY SHOP SUPERVISOR Unavailable [phone] Brea Quinn POWERTRAIN DESIGN ENGINEER CLAY SHOP SUPERVISOR Unavailable [phone] Jose Francisco Johnson MD Unavailable Livan Sharif MD Unavailable + Catherine Cm MD Unavailable + Sydnie Martinez RN Unavailable Unavailable Alfonso Renteria MD Unavailable [phone] Esha Grimm PA-C Primary Care Provider [phone] Cheng Todd PA-C Unavailable Radha Lomeli APRN CLAY SHOP SUPERVISOR Unavailable Jelena David OD Unavailable [phone] Pao Joseph RN Unavailable Unavailable Wicho Grimmlincoln Medina PA-C Unavailable [phone] Valery Veronica PA-C Unavailable Rey Tay MD Unavailable Rocky Zepeda DO Unavailable Philip Dumont MD Unavailable Meredith Carrera PA-C Unavailable [phone] Neil [place] MD Unavailable Juan Pablo Emmanuel MD Unavailable [phone] Audrey Waite PA-C Unavailable Encounter Details Date Type Department Care Team (Late st Contact Info) Description 10/24/2020 [facility] Medical Advice [address] [address] Marija Edgar APRN CLAY SHOP SUPERVISOR [address] [facility] [place] [address] Social History Tobacco Use Types Packs/Day [...] How often do you attend chur or methodist services? More than 4 times [...] Answer Date Recorded PHQ-2 Score 3 09/29/2020 [facility] [...] 11:44 AM CDT Replied to patient via Wikipixelt. Anthony Doe PA-C on 10/27/2020 at 11:54 AM documented in this encounter Plan of Treatment Upcoming Encounters Date Type Department Care Team (Late st Contact Info) Description 03/26/2024 11:20 AM CDT Office Visit [facility] Spine and Neurosurgery 1747 [facility] [address] [place] [address] Ebony Cid, POWERTRAIN DESIGN ENGINEER CLAY SHOP SUPERVISOR 500 [place] [address] 03/27/2024 11:00 AM CDT Office Visit [facility] [address] [facility] [address] [place] [address] Jelena David, 3305 [facility] [place] [address] 03/29/2024 3:30 PM CDT Therapy Visit [facility] [address]35[address] [facility] 160 [place] [address] Ingris Thompson, PT [facility] [address] [place] [address] 04/05/2024 2:10 PM CDT Therapy Visit [facility] [address]3036 [facility] 160 [place] [phone] Ingris Thompson, PT [facility] [address] [place] [address] 106 [place] [address] 04/19/2024 2:45 PM CDT Office Visit [facility] 830 [place] [address] Audrey Waite PA-C 420 [facility] [address], [facility] 603 [place] [address] 05/08/2024 1:30 PM CDT Office [facility] [address] [facility] [place] [phone] Lauren Claudio PA-C [address] [place] [address] Esha Grimm PA-C 23125 [facility] [place] [address] 06/21/2024 2:00 PM EDITORIAL CARTOONIST Office Visit [facility] Neurology Clinics - [place] [address] [place] [address], [address] [place] [address] [place] [address] [place], [place] [phone] Johnny Penn MD 6545 [facility], [place] 7[address] documented as of this encounter Visit Diagnoses Not on filedocumented in this encounter Additional Health Concerns Infection Onset Date Last Indicated Resolved Time Rule Out COVID-19 11/05/2020 11/05/2020 11/06/2020 1:09 PM CDT Rule Out COVID-19 05/11/2021 05/11/2021 05/13/2021 10:18 AM CDT Rule Out COVID-19 07/13/2021 07/13/2021 07/14/2021 3:04 PM EDITORIAL CARTOONIST Rule Out COVID-19 07/18/2021 07/18/2021 07/20/2021 1:56 PM EDITORIAL CARTOONIST COVID-19 07/18/2021 07/18/2021 08/08/2021 11:3 9 PM EDITORIAL CARTOONIST Rule Out COVID-19 12/18/2021 12/18/2021 12/19/2021 11:34 AM CDT Rule Out COVID-19 02/24/2022 02/24/2022 02/25/2022 1:08 PM CDT Rule Out COVID-19 04/26/2022 04/26/2022 04/26/2022 6:47 AM CDT Rule Out COVID-19 05/17/2022 05/17/2022 05/17/2022 10:20 PM EDITORIAL CARTOONIST Rule Out COVID-19 06/09/2022 06/09/2022 06/09/2022 9:35 AM EDITORIAL CARTOONIST COVID-19 06/09/2022 06/09/2022 06/30/2022 11:4 1 PM EDITORIAL CARTOONIST Rule Out COVID-19 11/10/2022 11/10/2022 11/11/2022 12:17 PM CDT Rule Out COVID-19 03/07/2023 03/07/2023 03/07/2023 1:20 PM CDT Rule Out COVID-19 12/26/2023 12/26/2023 12/26/2023 9:50 AM CDT Assessment Noted Time PHQ-9 Depression Total Score: 6 09/30/19 3:25 PM CDT documented as of this encounter Care Teams Cigarette Inspector Relationship Specialty Start Date End Date Marija Edgar APRN CLAY SHOP SUPERVISOR PCP - General Nurse Practitioner 04/30/20 04/14/23 Esha Grimm PA-C [address] [place] [phone] PCP - General Family Medicine 05/04/23 Lita Oseguera Personal Advocate & Liaison (PAL) 02/28/20 03/27/23 Chanelle Mccann APRN CNM [address] [address] Assigned OBGYN Provider 05/02/2005/09 Kyara De La Fuente, VJ Specialty Kiln Placer Neurology 06/04/20 03/05/21 Marija Edgar APRN CLAY SHOP SUPERVISOR Assigned PCP 06/08/20 04/29/23 Mynor Broussard MD [address] 500 [place] [address] Assigned Surgical Provider 06/01/20 11/28/21 Keisha Dotson MD 909 [place], [place] 156195 Assigned Neuroscience Provider 06/04/20 04/01/23 Stacey Briones, [facility] Lead Kiln Placer Primary Care - CC 08/11/2012/30 Galo Burrell MD Assigned Heart and Vascular Provider 10/05/20 04/02/22 Lesley Moody, [facility] Community Health Worker 10/23/2012/30 Meredith Bedoya Financial Resource Worker 10/23/20 11/23/20 Cristina Wood Financial Resource Worker 02/09/21 02/09/21 Diana Desir, [facility] [address] [place] [place], [place] [address] Pharmacist Pharmacist 04/17/21 Rain Galaviz PA-C [address] [facility] [address] [address] [facility] [address] Physician Clinical Geneticist Dermatology 04/28/21 Summer Lara MD [address] [place], [place] [address] Assigned OBGYN Provider 05/10/2105/23 Summer Lara MD [address] [address] Assigned OBGYN Provider 05/31/21 Summer Lara MD [address] [place] [address] Assigned OBGYN Provider 05/24/2105/30 Tavia Wyatt MD [address] [place] [address] [facility] 07/14/21 Johnny Murillo MD 25[address] [facility] [address] [place] [address] Assigned Musculoskeletal Provider 08/30/21 03/17/22 Erica Farrell APRN CLAY SHOP SUPERVISOR 6405 [facility] [address] [place], [place] 312[address] Nurse Practitioner Cardiovascular Disease 09/09/21 Teresita Bean, [facility] [address] [place], [place] [address] Pharmacist Pharmacist 09/24/21 09/29/21 Tavia Wyatt MD Assigned Surgical Provider 11/29/21 05/07/22 [facility] [address] [place] [address] Assigned MTM Pharmacist 01/02/22 Rich Barrett MD 516 [facility] 9A [place] [address] Physician Ophthalmology 01/21/22 Neil Kent MD 500 [place] [address] Dermatology 02/24/22 Roney Story DPM [address] [facility] [address] [place] [address] Assigned Musculoskeletal Provider 03/20/22 08/13/22 Erica Farrell APRN CLAY SHOP SUPERVISOR 1700 [place] [address] Assigned Heart and Vascular Provider 04/03/22 04/16/22 [facility] 3033 [place] [address] Assigned MTM Pharmacist 04/07/22 Jelena David OD 3305 [facility] [place] [address] Assigned Surgical Provider 05/08/22 10/08/22 Galo Burrell MD Assigned Heart and Vascular Provider 04/17/22 06/11/22 Livan Sharif MD [address] [place] 9317[address] Cardiovascular Disease 05/14/22 Livan Sharif MD [address] [place] 159195 Assigned Heart and Vascular Provider 06/12/22 07/23/22 Catherine Cm MD [address] [facility]00 [place] 111[address] Cardiovascular Disease 07/21/22 Valery Veronica, PA-C [address] [place] [address] 435545 Physician Clinical Geneticist Dermatology 07/21/22 Catherine mC MD [address] [place] 877125 Assigned Heart and Vascular Provider 07/24/22 11/05/22 Johnny Murillo MD [address] [place] [address] Assigned Musculoskeletal Provider 08/14/22 10/08/22 Brea Quinn APRN CLAY SHOP SUPERVISOR [address] [place] [address] 746455 Nurse Practitioner Dermatology 09/21/22 Brea Quinn APRN CLAY SHOP SUPERVISOR [address] [place] [address] [place] [address] Assigned Surgical Provider 10/09/22 [place] [address] [place] [address] 805977 Assigned Musculoskeletal Provider 10/09/22 Livan Sharif MD [address] [place] [address] [place] [address]85 Assigned Heart and Vascular Provider 11/06/22 11/12/22 Catherine Cm MD [address] [place] [address] Assigned Heart and Vascular Provider 11/13/22 05/27/23 Sydnie Martinez RN Personal Advocate & Liaison (PAL) Family Medicine 03/28/23 07/31/23 Alfonso Renteria MD 5775 [facility] 200 [place], [place] 263866 Assigned Neuroscience Provider 04/02/23 Cheng Todd PA-C [address] [place] [address] [id number] Assigned PCP 04/30/23 07/15/23 Radha Lomeli APRN CLAY SHOP SUPERVISOR [address] [place] [address] Assigned Heart and Vascular Provider 05/28/23 Jelena David OD 3305 [facility] [place] [address] Ophthalmology 06/15/23 Pao Joseph, VJ Personal Advocate & Liaison (PAL) Nurse 08/01/23 11/07/23 Esha Grimm PA-C [address] [place] [address] Assigned PCP 07/16/23 Valery Veronica PA-C [address] [place] [address] 472915 Physician Clinical Geneticist Dermatology 09/19/23 Rey Tay MD 9 [place], [place] 632175 MD Gastroenterology 09/20/23 Rocky Zepeda DO 500 [place] [address] Physician Gastroenterology 09/20/23 Philip Dumont MD 516 [place] [address] Physician Ophthalmology 09/22/23 Meredith Carrera PA-C 9 [place] [address] Assigned Gastroenterology Provider 11/01/23 Neil Kent MD [address] [address] Dermatology 11/02/23 [place] [address] [place] [address] Neurological Surgery 12/26/23 Audrey Waite PA-C 500 [place] [address] Physician Clinical Geneticist Dermatology 02/28/24 documented as of this encounter
--- OUTSIDE RECORDS SUMMARY | 2024-03-23 16:06 | XMS_ITS | Encounter Summary ---
Author Organization [facility] Address [address] [place] [address] Care Team Providers Care Lollypop Machine Operator Name Role Phone Lita Oseguera Unavailable Unavailable Marija Edgar SENIOR AUDIT MANAGER FISHER QUAHOG Primary Care Provider + Chanelle Mccann SENIOR AUDIT MANAGER CNM Unavailab le Marija Edgar APRN FISHER QUAHOG Unavailable Mynor Broussard MD Unavailable [phone] Keisha Dotson MD Unavailable Galo Burrell MD Unavailable Unavailable Diana Desir [facility] Unavailable Rain Galaviz PA-C Unavailable [phone] Summer Lara MD Unavailable [phone] Summer Lara MD Unavailable [phone] Summer Lara MD Unavailable [phone] Tavia Wyatt MD Unavailable Unavailable Johnny Murillo MD Unavailable [phone] Eriac Farrell SENIOR AUDIT MANAGER FISHER QUAHOG Unavailable Teresita Bean [facility] Unavailable Tavia Wyatt MD Unavailable Unavailable Desir, Diana T RPH Unavailable [phone] Rich Barrett MD Unavailable Neil Kent MD Unavailable Roney Story DPM Unavailable [phone] Erica Farrell SENIOR AUDIT MANAGER FISHER QUAHOG Unavailable + Thang Diana Stanislav RP Unavailable [phone] Jelena David OD Unavailable Galo Burrell MD Unavailable Unavailable Livan Sharif MD Unavailable Livan Sharif MD Unavailable + Catherine Cm MD Unavailable + Valery Veronica PA-C Unavailable [phone] Catherine Cm MD Unavailable + Johnny Murillo MD Unavailable [phone] Brea Quinn SENIOR AUDIT MANAGER FISHER QUAHOG Unavailable [phone] Brea Quinn SENIOR AUDIT MANAGER FISHER QUAHOG Unavailable [phone] Jose Francisco Johnson MD Unavailable Livan Sharif MD Unavailable + Catherine Cm MD Unavailable + Sydnie Martinez RN Unavailable Unavailable Alfonso Renteira MD Unavailable Esha Grimm PA-C Primary Care Provider Cheng Todd PA-C Unavailable Radha Lomeli SENIOR AUDIT MANAGER FISHER QUAHOG Unavailable [phone] Jelena David OD Unavailable [phone] Pao Joseph RN Unavailable Unavailable Esha Grimm-C Unavailable [phone] Jeremías, Valery D PA-C Unavailable [phone] Rey Tay MD Unavailable Rocky Zepeda DO Unavailable Philip Dumont MD Unavailable [phone] Meredith CarreraC Unavailable [phone] Neil Kent MD Unavailable Juan Pablo Emmanuel MD Unavailable [phone] Audrey Waite PA-C Unavailable [phone] Encounter Details Date Type Department Care Team (Late st Contact Info) Description 04/17/2021 MyC Medical Advice [address] [address] Marija Edgar APRN [facility] [address] [facility] [place] [address] Social History Tobacco Use Types [...] Answer Date Recorded PHQ-2 Score 0 04/02/2021 [facility] [...] in a half-way (including now)? No 08/11/2020 [place] Depression Scale Answer Date Recorded [place] Depression Score 5 01/14/2021 Last EPDS Self [...] Visit [facility] Spine and Neurosurgery [address] [facility] [address] [place] [address] Ebony Cid APRN [facility] 500 [place] [address] 03/27/2024 11:00 AM CDT Office Visit [place] [id number] [facility] [address] [place] [address] Jel[place] David, [place] [address] [place] [address] 03/29/2024 3:30 PM CDT Therapy Visit [facility] [address] [facility] 160 [place] [phone] Ingris Thompson, PT [facility] [address] [place] [address] 106 [place], [place] 675975 04/05/2024 2:10 PM CDT Therapy Visit [facility] [address] [facility] 160 [place] [phone] Ingris Thompson, PT [facility] [address] [place] [address] 106 [place], [place] 410715 04/19/2024 2:45 PM CDT Office Visit [address] [phone] Audrey Waite PA-C 420 [facility] [address], [facility] 603 [place] [address] 05/08/2024 1:30 PM CDT Office Visit [facility] [address] [place] [phone] Lauren Claudio PA-C [address] [place], [place] [phone] Esha Grimm PA-C [address] [place] [address] 06/21/2024 2:00 PM PRINT JOURNALIST Office Visit [facility] Neurology Clinics [address], [address] [place] [phone] [place] [address] [place] [address] Johnny Penn MD [address] [place], [place] 524445 documented as of this encounter Visit Diagnoses Not on filedocumented in this encounter Additional Health Concerns Infection Onset Date Last Indicated Resolved Time Rule Out COVID-19 05/11/2021 05/11/2021 05/13/2021 10:18 AM CDT Rule Out COVID-19 07/13/2021 07/13/2021 07/14/2021 3:04 PM PRINT JOURNALIST Rule Out COVID-19 07/18/2021 07/18/2021 07/20/2021 1:56 PM PRINT JOURNALIST COVID-19 07/18/2021 07/18/2021 08/08/2021 11:3 9 PM PRINT JOURNALIST Rule Out COVID-19 12/18/2021 12/18/2021 12/19/2021 11:34 AM CDT Rule Out COVID-19 02/24/2022 02/24/2022 02/25/2022 1:08 PM CDT Rule Out COVID-19 04/26/2022 04/26/2022 04/26/2022 6:47 AM CDT Rule Out COVID-19 05/17/2022 05/17/2022 05/17/2022 10:20 PM PRINT JOURNALIST Rule Out COVID-19 06/09/2022 06/09/2022 06/09/2022 9:35 AM PRINT JOURNALIST COVID-19 06/09/2022 06/09/2022 06/30/2022 11:4 1 PM PRINT JOURNALIST Rule Out COVID-19 11/10/2022 11/10/2022 11/11/2022 12:17 PM CDT Rule Out COVID-19 03/07/2023 03/07/2023 03/07/2023 1:20 PM CDT Rule Out COVID-19 12/26/2023 12/26/2023 12/26/2023 9:50 AM CDT Assessment Noted Time PHQ-9 Depression Total Score: 2 04/02/20 21 10:19 AM CDT documented as of this encounter Care Teams Lollypop Machine Operator Relationship Specialty Start Date End Date Marija Edgar APRN FISHER QUAHOG PCP - General Nurse Practitioner 04/30/20 04/14/23 Esha Grimm PA-C [address] [place] [address] PCP - General Family Medicine 05/04/23 Lita Oseguera Personal Advocate & Liaison (PAL) 02/28/20 03/27/23 Chanelle Mccann APRN [facility] [address] [place] [address] 200 [place] [address] Assigned OBGYN Provider 05/02/2005/09 Marija Edgar APRN FISHER QUAHOG Assigned PCP 06/08/20 04/29/23 Mynor Broussard MD 6363 [facility] 500 [place], [place] 639555 Assigned Surgical Provider 06/01/20 11/28/21 Keisha Dotson MD 909 [place], [place] 664095 Assigned Neuroscience Provider 06/04/20 04/01/23 Galo Burrell MD Assigned Heart and Vascular Provider 10/05/20 04/02/22 [facility] [address] [place] [address] Pharmacist Pharmacist 04/17/21 Rain Galaviz PA-C [address] [place] [address] [place] [address] Physician Car Blocker Dermatology 04/28/21 Summer Lara MD [address] [place] [address] Assigned OBGYN Provider 05/10/2105/23 Summer Lara MD [address] [place] [address] [place] [address] Assigned OBGYN Provider 05/31/21 Summer Lara MD [address] [place] [address] [address] [place], [place] 408504 Assigned OBGYN Provider 05/24/2105/30 Tavia Wyatt MD [address] [place] [address] [place] [address] Dermatology 07/14/21 Johnny Murillo MD [address] [place] [address] Assigned Musculoskeletal Provider 08/30/21 03/17/22 Erica Farrell APRN FISHER QUAHOG [address] [facility] [address] [place] [address] Nurse Practitioner Cardiovascular Disease 09/09/21 Teresita Bean, [facility] [address] [place] [address] Pharmacist Pharmacist 09/24/21 09/29/21 Tavia Wyatt MD Assigned Surgical Provider 11/29/21 05/07/22 Diana Desir, [facility] [address] [place] [address] Assigned MTM Pharmacist 01/02/22 Rich Barrett MD [address] 509435 Physician Ophthalmology 01/21/22 Neil Kent MD 500 [place], [place] 328115 Dermatology 02/24/22 Roney Story DPM [address] [facility] 300 [place] [address] Assigned Musculoskeletal Provider 03/20/22 08/13/22 Erica Farrell APRN FISHER QUAHOG 1700 [place] [address] Assigned Heart and Vascular Provider 04/03/22 04/16/22 Diana Desir, [facility] [address] [place] [address] Assigned MTM Pharmacist 04/07/22 Jelena David OD 3305 [facility] [place] [address] Assigned Surgical Provider 05/08/22 10/08/22 Galo Burrell MD Assigned Heart and Vascular Provider 04/17/22 06/11/22 Livan Sharif MD [address] [place] [address] Cardiovascular Disease 05/14/22 Livan Sharif MD [address], [address] [place] [address] Assigned Heart and Vascular Provider 06/12/22 07/23/22 Catherine Cm MD [address] [place] [address] Cardiovascular Disease 07/21/22 Valery Veronica, PA-C [address] [place] [address] 105205 Physician Car Blocker Dermatology 07/21/22 Catherine Cm MD [address] [place] [address] Assigned Heart and Vascular Provider 07/24/22 11/05/22 Johnny Murillo MD [facility] [address] 310754 Assigned Musculoskeletal Provider 08/14/22 10/08/22 Brea Quinn APRN FISHER QUAHOG [address] [place] [address] 923445 Nurse Practitioner Dermatology 09/21/22 Brea Quinn APRN FISHER QUAHOG [address] [facility] [place] [address] Assigned Surgical Provider 10/09/22 [place] [address] [facility] 300 [place] [address] Assigned Musculoskeletal Provider 10/09/22 Livan Sharif MD [address], [facility] [address] [place], [place] 383805 Assigned Heart and Vascular Provider 11/06/22 11/12/22 Catherine Cm MD [address] [place], [place] 945215 Assigned Heart and Vascular Provider 11/13/22 05/27/23 Sydnie Martinez RN Personal Advocate & Liaison (PAL) Family Medicine 03/28/23 07/31/23 Alfonso Renteria MD 5775 [facility] 200 [place] [address] Assigned Neuroscience Provider 04/02/23 Cheng Todd PA-C [address] [place] [address] Assigned PCP 04/30/23 07/15/23 Radha Lomeli, ARLENE FISHER QUAHOG [address] [place] [address] Assigned Heart and Vascular Provider 05/28/23 Jelena David OD [address] [place] [address] MD Ophthalmology 06/15/23 Pao Joseph, RN Personal Advocate & Liaison (PAL) Nurse 08/01/23 11/07/23 Esha Grimm PA-C [address] [place] [phone] Assigned PCP 07/16/23 Valery Veronica PA-C [address] [place] [address] 771445 Physician Car Blocker Dermatology 09/19/23 Rey Tay MD [address] [place] [address] 679135 MD Gastroenterology 09/20/23 Rocky Zepeda DO [address] [place] [address] 208775 Physician Gastroenterology 09/20/23 Philip Dumont MD [address] [place] [address] 381235 Physician Ophthalmology 09/22/23 Meredith Carrera PA-C [address] [place] [address] 164225 Assigned Gastroenterology Provider 11/01/23 Neil Kent MD [address] [place] [address] 438420 Dermatology 11/02/23 [place] [address] [place] [address] Neurological Surgery 12/26/23 Audrey Waite PA-C 500 [place] [address] Physician Car Blocker Dermatology 02/28/24 documented as of this encounter
--- OUTSIDE RECORDS SUMMARY | 2024-03-23 16:06 | XMS_ITS | Encounter Summary ---
Author Organization [facility] Address [address] [place] [address] Care Team Providers Care Home Agent Name Role Phone Lita Oseguera Unavailable Unavailable Marija Edgar SPANISH MEDICAL INTERPRETER INTERNATIONAL SOURCING MANAGER Primary Care Provider + Chanelle Mccann SPANISH MEDICAL INTERPRETER CNM Unavailab le Marija Edgar APRN INTERNATIONAL SOURCING MANAGER Unavailable [phone] Mynor Broussard MD Unavailable [phone] Keisha Dotson MD Unavailable [phone] Galo Burrell MD Unavailable Unavailable Diana Desir [facility] Unavailable [phone] Rain Galaviz PA-C Unavailable Summer Lara MD Unavailable Summer Lara MD Unavailable [phone] Summer Lara MD Unavailable [phone] Tavia Wyatt MD Unavailable Unavailable Johnny Murillo MD Unavailable Erica Farrell SPANISH MEDICAL INTERPRETER INTERNATIONAL SOURCING MANAGER Unavailable Teresita Bean [facility] Unavailable Tavia Wyatt MD Unavailable Unavailable Desir, Diana T RPH Unavailable [phone] Rich Barrett MD Unavailable Neil Kent MD Unavailable Roney Story DPM Unavailable [phone] Erica Farrell SPANISH MEDICAL INTERPRETER INTERNATIONAL SOURCING MANAGER Unavailable + Thang Diana Stanislav RP Unavailable [phone] Jelena David OD Unavailable Galo Burrell MD Unavailable Unavailable Livan Sharif MD Unavailable Livan Sharif MD Unavailable + Catherine Cm MD Unavailable + Valery Veronica PA-C Unavailable [phone] Catherine Cm MD Unavailable + Johnny Murillo MD Unavailable [phone] Brea Quinn SPANISH MEDICAL INTERPRETER INTERNATIONAL SOURCING MANAGER Unavailable [phone] Brea Quinn SPANISH MEDICAL INTERPRETER INTERNATIONAL SOURCING MANAGER Unavailable [phone] Jose Francisco Johnson MD Unavailable Livan Sharif MD Unavailable + Catherine Cm MD Unavailable + Sydnie Martinez RN Unavailable Unavailable Alfonso Renteria MD Unavailable Esha Grimm PA-C Primary Care Provider Cheng Todd PA-C Unavailable Radha Lomeli SPANISH MEDICAL INTERPRETER INTERNATIONAL SOURCING MANAGER Unavailable [phone] Jelena David OD Unavailable [phone] Pao Joseph RN Unavailable Unavailable Esha Grimm-C Unavailable [phone] Jeremías, Valery D PA-C Unavailable [phone] Rey Tay MD Unavailable Rocky Zepeda DO Unavailable Philip Dumont MD Unavailable [phone] Meredith CarreraC Unavailable [phone] Neil Kent MD Unavailable Juan Pablo Emmanuel MD Unavailable [phone] Audrey Waite-C Unavailable [phone] Encounter Details Date Type Department Care Team (Late st Contact Info) Description 04/17/2021 MyC Medical Advice [address] [address] Diana Desir, [facility] 3032 [place] [address] Social History Tobacco Use Types [...] a care home (including now)? No 08/11/2020 [place] Depression Scale Answer Date Recorded [place] [...] [facility] Spine and Neurosurgery [address] [facility] [address] [place] [address] Ebony Cid APRN [facility] 500 [place] [address] 03/27/2024 11:00 AM CDT Office Visit [facility] [address] [facility] [address] [place] [address] Jelena David, OD [address] [facility] [place] [address] 03/29/2024 3:30 PM CDT Therapy Visit [facility] [address] [facility] 160 [place] [phone] Ingris Thompson, PT [facility] [address] [place] [address] 106 [place], [place] 0[address]75 04/05/2024 2:10 PM CDT Therapy Visit [facility] [address] [facility] 160 [place] [phone] Ingris Thompson, PT [facility] [address] [place] [address] 106 [place] [address] 04/19/2024 2:45 PM CDT Office Visit [address] [phone] Audrey Waite PA-C 420 [facility] [address]385, [facility] 603 [place] [address] 05/08/2024 1:30 PM CDT Office Visit [facility] [address] [place] [phone] Lauren Claudio PA-C [address] [place], [place] [phone] Esha Grimm PA-C [address] [place] [phone] 06/21/2024 2:00 PM RACING CAR DRIVER Office Visit [facility] Neurology Clinics - [address], [address] [place] [address] [place] [address] [place] [address] Johnny Penn MD [address] [place], [place] 185385 documented as of this encounter Visit Diagnoses Not on filedocumented in this encounter Additional Health Concerns Infection Onset Date Last Indicated Resolved Time Rule Out COVID-19 05/11/2021 05/11/2021 05/13/2021 10:18 AM CDT Rule Out COVID-19 07/13/2021 07/13/2021 07/14/2021 3:04 PM RACING CAR DRIVER Rule Out COVID-19 07/18/2021 07/18/2021 07/20/2021 1:56 PM RACING CAR DRIVER COVID-19 07/18/2021 07/18/2021 08/08/2021 11:3 9 PM RACING CAR DRIVER Rule Out COVID-19 12/18/2021 12/18/2021 12/19/2021 11:34 AM CDT Rule Out COVID-19 02/24/2022 02/24/2022 02/25/2022 1:08 PM CDT Rule Out COVID-19 04/26/2022 04/26/2022 04/26/2022 6:47 AM CDT Rule Out COVID-19 05/17/2022 05/17/2022 05/17/2022 10:20 PM RACING CAR DRIVER Rule Out COVID-19 06/09/2022 06/09/2022 06/09/2022 9:35 AM RACING CAR DRIVER COVID-19 06/09/2022 06/09/2022 06/30/2022 11:4 1 PM RACING CAR DRIVER Rule Out COVID-19 11/10/2022 11/10/2022 11/11/2022 12:17 PM CDT Rule Out COVID-19 03/07/2023 03/07/2023 03/07/2023 1:20 PM CDT Rule Out COVID-19 12/26/2023 12/26/202312/2512/26/2023 9:50 AM CDT Assessment Noted Time PHQ-9 Depression Total Score: 2 04/02/20 10:19 AM CDT documented as of this encounter Care Teams Home Agent Relationship Specialty Start Date End Date Marija Edgar APRN INTERNATIONAL SOURCING MANAGER PCP - General Nurse Practitioner 04/30/20 04/14/23 Esha Grimm PA-C [address] [place] [phone] PCP - General Family Medicine 05/04/23 Lita Oseguera Personal Advocate & Liaison (PAL) 02/28/20 03/27/23 [place] [address] [place] [address] 200 [place], [place] 987237 Assigned OBGYN Provider 05/02/2005/09 Marija Edgar APRN INTERNATIONAL SOURCING MANAGER Assigned PCP 06/08/20 04/29/23 Mynor Broussard MD 6363 [facility] 500 [place], [place] 492215 Assigned Surgical Provider 06/01/20 11/28/21 Keisha Dotson MD 909 [place], [place] 264875 Assigned Neuroscience Provider 06/04/20 04/01/23 Galo Burrell MD Assigned Heart and Vascular Provider 10/05/20 04/02/22 [facility] 3033 [facility] [address] Pharmacist Pharmacist 04/17/21 Rain Galaviz PA-C [address] [place] [address] [place] [address] Physician Manager Event Dermatology 04/28/21 Summer Lara MD [address] [place] [address] Assigned OBGYN Provider 05/10/2105/23 Summer Lara MD [address] [place] [address] [place] [address] Assigned OBGYN Provider 05/31/21 2 Summer Lara MD [address] [place] [address] Assigned OBGYN Provider 05/24/2105/30 Tavia Wyatt MD [address] [place] [address] Dermatology 07/14/21 Johnny Murillo MD [facility] [facility] [address] [place] [address] Assigned Musculoskeletal Provider 08/30/21 03/17/22 Erica Farrell APRN INTERNATIONAL SOURCING MANAGER 6405 [facility] [address] [place] [address] Nurse Practitioner Cardiovascular Disease 09/09/21 Teresita Bean, [facility] [address] [place] [address] Pharmacist Pharmacist 09/24/21 09/29/21 Tavia Wyatt MD Assigned Surgical Provider 11/29/21 05/07/22 Diana Desir, [facility] 3033 [place] [address] Assigned MTM Pharmacist 01/02/22 Rich Barrett MD [address] [address] Physician Ophthalmology 01/21/22 Neil Kent MD 500 [place] [address] Dermatology 02/24/22 Roney Story DPM [address] [facility] 300 [place] [address] Assigned Musculoskeletal Provider 03/20/22 08/13/22 Erica Farrell APRN INTERNATIONAL SOURCING MANAGER 1700 [place] [address] Assigned Heart and Vascular Provider 04/03/22 04/16/22 Diana Desir, [facility] 3033 [place] [address] Assigned MTM Pharmacist 04/07/22 Jelena David OD [address] [facility] [place] [address] Assigned Surgical Provider 05/08/22 10/08/22 Galo Burrell MD Assigned Heart and Vascular Provider 04/17/22 06/11/22 Livan Sharif MD [address] [place] [address] Cardiovascular Disease 05/14/22 Livan Sharif MD [address] [place] [address] Assigned Heart and Vascular Provider 06/12/22 07/23/22 Catherine Cm MD [address] [place] [address] Cardiovascular Disease 07/21/22 Valery Veronica, PA-C [address] [place] [address] 746395 Physician Manager Event Dermatology 07/21/22 Catherine Cm MD [address] [place] 271765 Assigned Heart and Vascular Provider 07/24/22 11/05/22 Johnny Murillo MD [facility] 8[address] Assigned Musculoskeletal Provider 08/14/22 10/08/22 Brea Quinn APRN INTERNATIONAL SOURCING MANAGER [address] [place] [address] 256855 Nurse Practitioner Dermatology 09/21/22 Brea Quinn APRN INTERNATIONAL SOURCING MANAGER [address] [place] [address] Assigned Surgical Provider 10/09/22 [place] [address] [place] [address] Assigned Musculoskeletal Provider 10/09/22 Livan Sharif MD [address], [facility] [address] [place] [address] Assigned Heart and Vascular Provider 11/06/22 11/12/22 Catherine Cm MD [address] [place] 650655 Assigned Heart and Vascular Provider 11/13/22 05/27/23 Sydnie Martinez, RN Personal Advocate & Liaison (PAL) Family Medicine 03/28/23 07/31/23 Alfonso Renteria MD 5775 [facility] 200 [place] [address] Assigned Neuroscience Provider 04/02/23 Cheng Todd PA-C [address] [place] [address] Assigned PCP 04/30/23 07/15/23 Radha Lomeli APRN INTERNATIONAL SOURCING MANAGER [address] [place] [address] Assigned Heart and Vascular Provider 05/28/23 Jelena David OD [address] [facility] [place] [address] MD Ophthalmology 06/15/23 Pao Joseph, RN Personal Advocate & Liaison (PAL) Nurse 08/01/23 11/07/23 Esha Grimm PA-C [address] [place] [address] Assigned PCP 07/16/23 Valery Veronica PA-C [address] [place] [address] Physician Manager Event Dermatology 09/19/23 Rey Tay MD [address] [place] [address] MD Gastroenterology 09/20/23 Rocky Zepeda DO [address] [place] [address] Physician Gastroenterology 09/20/23 Philip Dumont MD [address] [place] [address] Physician Ophthalmology 09/22/23 Meredith Carrera PA-C [address] [place] [address] Assigned Gastroenterology Provider 11/01/23 Neil Kent MD [address] 386110 Dermatology 11/02/23 [place] [address] [place], [place] 8[address] Neurological Surgery 12/26/23 Audrey Waite PA-C 500 [place], [place] 153155 Physician Manager Event Dermatology 02/28/24 documented as of this encounter
--- OUTSIDE RECORDS SUMMARY | 2024-03-23 16:06 | XMS_ITS | Encounter Summary ---
Author Organization [facility] Address [address] [place] [address] Care Team Providers Care Bill Checker Name Role Phone Lita Oseguera Unavailable Unavailable Marija Edgar HOSPITAL NURSE LIAISON TRACK GRINDER OPERATOR Primary Care Provider + Chanelle Mccann HOSPITAL NURSE LIAISON CNM Unavailab le Kyara De La Fuente RN Unavailable [phone] Marija Edgar APRN TRACK GRINDER OPERATOR Unavailable [phone] Mynor Broussard MD Unavailable [phone] Keisha Dotson MD Unavailable [phone] Galo Burrell MD Unavailable Unavailable Cristina Wood Unavailable Diana Desir [facility] Unavailable Rain Galaviz PA-C Unavailable Summer Lara MD Unavailable [phone] Summer Lara MD Unavailable [phone] Summer Lara MD Unavailable Tavia Wyatt MD Unavailable Unavailable Johnny Murillo MD Unavailable Erica Farrell APRN TRACK GRINDER OPERATOR Unavailable Teresita Bean Walter [facility] Unavailable Tavia Wyatt MD Unavailable Unavailable Diana Desir [facility] Unavailable [phone] Rich Barrett MD Unavailable [phone] Neil Kent MD Unavailable Roney StoryM Unavailable [phone] Erica Farrell HOSPITAL NURSE LIAISON TRACK GRINDER OPERATOR Unavailable + Diana Desir [facility] Unavailable [phone] Jelena David OD Unavailable Galo Burrell MD Unavailable Unavailable Livan Sharif MD Unavailable + Livan Sharif MD Unavailable + Catherine Cm MD Unavailable + Valery Veronica PA-C Unavailable [phone] Catherine Cm MD Unavailable + Johnny Murillo MD Unavailable [phone] Brea Quinn HOSPITAL NURSE LIAISON TRACK GRINDER OPERATOR Unavailable [phone] Brea Quinn HOSPITAL NURSE LIAISON TRACK GRINDER OPERATOR Unavailable [phone] Jose Francisco Johnson MD Unavailable Livan Sharif MD Unavailable + Catherine Cm MD Unavailable + Sydnie Martinez RN Unavailable Unavailable Alfonso Renteria MD Unavailable [phone] Esha Grimm PA-C Primary Care Provider Cheng Todd PA-C Unavailable Radha Lomeli HOSPITAL NURSE LIAISON TRACK GRINDER OPERATOR Unavailable [phone] Jelena David OD Unavailable Pao Joseph RN Unavailable Unavailable Alfa Esha M PA-C Unavailable [phone] Valery Veronica PA-C Unavailable [phone] Rey Tay MD Unavailable Rocky Zepeda DO Unavailable Philip Dumont MD Unavailable Meredith Carrera PA-C Unavailable [phone] Neil Kent MD Unavailable Juan Pablo Emmanuel MD Unavailable [phone] Audrey Waite PA-C Unavailable [phone] Encounter Details Date Type Department Care Team (Late st Contact Info) Description 01/06/2021 Orders Only [facility] - Surgical Specialties Service Line [address] [place] [address] Saurabh Marcial MD 9781 [facility] 200 [place] [address] Indication for care in labor [...] medical care at [facility]? More than 4 times [...] Answer Date Recorded PHQ-2 Score 3 09/29/2020 [facility] Occupat ional Health - Occupational Stress Questionnaire [...] Visit [facility] [address] [facility] [address] [place] [address] Ebony Cid, [facility] 500 [place] [address] 03/27/2024 11:00 AM CDT Office Visit [facility] [address] [facility] [address] [place] [phone] Frank[place] J[place], [place] [address] [facility] [address] [place] [address] 03/29/2024 3:30 PM CDT Therapy Visit [facility] [address] [place] [address] 160 [place] [phone] Ingris Thompson, PT [facility] [address] [place] [address] 106 [place] [address] 04/05/2024 2:10 PM CDT Therapy Visit [facility] [address] [place] [address] 160 [place] [phone] Ingris Thompson, PT [facility] [address] [place] [address] 106 [place] [address] 04/19/2024 2:45 PM CDT Office Visit [address] [phone] Audrey Waite PA-C 420 [facility] [address], [facility] 603 [place] [address] 05/08/2024 1:30 PM CDT Office Visit [facility] [address] [place] [phone] Lauren Claudio PA-C [address] [place], [place] [phone] Esha Grimm PA-C [address] [place] [phone] 06/21/2024 2:00 PM CIVIL ATTORNEY Office Visit [facility] [place] [address] [facility], [address] [place] [address] [place] [address] [place] [address] Johnny Penn MD [address] [place] [address] documented as of this encounter Results * Asymptomatic COVID-19 Virus (Coronavirus) by PCR (01/09/2021 10:44 AM CDT) COVID-19 Virus PCR to [facility] - Source Nasopharyngeal 01/09/2021 10:45 AM CDT [facility] COVID-19 Virus PCR to [facility] - Result Test received-See reflex to IDDL test SARS CoV2 (COVID-19) Virus RT-PCR 01/09/2021 6:32 PM CDT [facility]ES [facility], [facility] Specimen from nasopharyngeal structure (specimen) 01/09/2021 10:44 AM CDT 01/09/2021 10:45 AM CDT Saurabh Marcial MD LAB - MICRO GENE RAL ORDERABLES INFECTIOUS DISEASES [facility], [facility] [address] [place] [address], [facility] [address] [place], [place] [address] [phone] documented in this encounter Visit Diagnoses Diagnosis Indication for care in labor and delivery, antepartum- Primary Unspecified indication for care or intervention related to labor and delivery, antepartum documented in this encounter Additional Health Concerns Infection Onset Date Last Indicated Resolved Time Rule Out COVID-19 05/11/2021 05/11/2021 05/13/2021 10:18 AM CDT Rule Out COVID-19 07/13/2021 07/13/2021 07/14/2021 3:04 PM CIVIL ATTORNEY Rule Out COVID-19 07/18/2021 07/18/2021 07/20/2021 1:56 PM CIVIL ATTORNEY COVID-19 07/18/2021 07/18/2021 08/08/2021 11:3 9 PM CIVIL ATTORNEY Rule Out COVID-19 12/18/2021 12/18/2021 12/19/2021 11:34 AM CDT Rule Out COVID-19 02/24/2022 02/24/2022 02/25/2022 1:08 PM CDT Rule Out COVID-19 04/26/2022 04/26/2022 04/26/2022 6:47 AM CDT Rule Out COVID-19 05/17/2022 05/17/2022 05/17/2022 10:20 PM CIVIL ATTORNEY Rule Out COVID-19 06/09/2022 06/09/2022 06/09/2022 9:35 AM CIVIL ATTORNEY COVID-19 06/09/2022 06/09/2022 06/30/2022 11:4 1 PM CIVIL ATTORNEY Rule Out COVID-19 11/10/2022 11/10/2022 11/11/2022 12:17 PM CDT Rule Out COVID-19 03/07/2023 03/07/2023 03/07/2023 1:20 PM CDT Rule Out COVID-19 12/26/2023 12/26/2023 12/26/2023 9:50 AM CDT Assessment Noted Time PHQ-9 Depression Total Score: 6 09/30/19 21 3:25 PM CDT documented as of this encounter Care Teams Bill Checker Relationship Specialty Start Date End Date Marija Edgar APRN CNP PCP - General Nurse Practitioner 04/30/20 04/14/23 Esha Grimm PA-C [address] [place] [phone] PCP - General Family Medicine 05/04/23 Lita Oseguera Personal Advocate & Liaison (PAL) 02/28/20 03/27/23 Chanelle Mccann APRN CNM [address] [facility] 200 [place] [address] Assigned OBGYN Provider 05/02/2005/09 Kyara De La Fuente, RN Specialty Sporting Goods Sales Manager Neurology 06/04/20 03/05/21 Marija Edgar APRN TRACK GRINDER OPERATOR Assigned PCP 06/08/20 04/29/23 Mynor Broussard MD 6363 [facility] 500 [place] [address] Assigned Surgical Provider 06/01/20 11/28/21 Keisha Dotson MD [address] [place] [address] Assigned Neuroscience Provider 06/04/20 04/01/23 Galo Burrell MD Assigned Heart and Vascular Provider 10/05/20 04/02/22 Cristina Wood Financial Resource Worker 02/09/21 02/09/21 Diana Desir, [facility] [address] [place] [address] Pharmacist Pharmacist 04/17/21 Rain Galaviz PA-C [address] [place] [address] [address] [place] [address] Physician Physician Neonatology Dermatology 04/28/21 Summer Lara MD [address] [place] [address] Assigned OBGYN Provider 05/10/2105/23 Summer Lara MD [address] [place] [address] Assigned OBGYN Provider 05/31/21 2 Summer Lara MD [address] [facility] [place] [address] Assigned OBGYN Provider 05/24/2105/30 Tavia Wyatt MD [address] [place] [address] [address] [facility] 07/14/21 Johnny Murillo MD [address] [place] [address] Assigned Musculoskeletal Provider 08/30/21 03/17/22 Erica Farrell APRN TRACK GRINDER OPERATOR 6405 [facility] [address] [place] [address] Nurse Practitioner Cardiovascular Disease 09/09/21 Teresita Bean, [facility] [address] [place] [address] Pharmacist Pharmacist 09/24/21 09/29/21 Tavia Wyatt MD Assigned Surgical Provider 11/29/21 05/07/22 [facility] [address] [place] [address] Assigned MTM Pharmacist 01/02/22 Rich Barrett MD 516 [facility] 9A [place], [place] 6[address] Physician Ophthalmology 01/21/22 Neil Kent MD 500 [place] [address] Dermatology 02/24/22 Roney Story DPM [address] [facility] [facility] [address] [place] [address] Assigned Musculoskeletal Provider 03/20/22 08/13/22 Erica Farrell APRN TRACK GRINDER OPERATOR 1700 [place] [address] Assigned Heart and Vascular Provider 04/03/22 04/16/22 Diana Desir, [facility] [address] [place] [address] Assigned MTM Pharmacist 04/07/22 [place] David [place] [address] [facility] [place] [address] Assigned Surgical Provider 05/08/22 10/08/22 Galo Burrell MD Assigned Heart and Vascular Provider 04/17/22 06/11/22 Livan Sharif MD [address] [place] 146025 Cardiovascular Disease 05/14/22 Livan Sharif MD [address] [place] 240535 Assigned Heart and Vascular Provider 06/12/22 07/23/22 Catherine Cm MD [address] [facility]00 [place] [address] Cardiovascular Disease 07/21/22 Valery Veronica, PA-C [address] [place] [address] 421215 Physician Physician Neonatology Dermatology 07/21/22 Catherine Cm MD [address] [address] Assigned Heart and Vascular Provider 07/24/22 11/05/22 Johnny Murillo MD [address] [place] [address] Assigned Musculoskeletal Provider 08/14/22 10/08/22 Brea Quinn APRN TRACK GRINDER OPERATOR [address] [place] [address] 316425 Nurse Practitioner Dermatology 09/21/22 Brea Quinn APRN TRACK GRINDER OPERATOR [address] [place] [address] Assigned Surgical Provider 10/09/22 [place] [address] [address] Assigned Musculoskeletal Provider 10/09/22 Livan Sharif MD [address], [address] [place] [address] Assigned Heart and Vascular Provider 11/06/22 11/12/22 Catherine Cm MD [address] [facility] [address] [place] [address] Assigned Heart and Vascular Provider 11/13/22 05/27/23 Sydnie Martinez, RN Personal Advocate & Liaison (PAL) Family Medicine 03/28/23 07/31/23 Alfonso Renteria MD 5775 [facility] 200 [place] [address] Assigned Neuroscience Provider 04/02/23 Cheng Todd PA-C [address] [place] [address] [phone] Assigned PCP 04/30/23 07/15/23 Radha Lomeli APRN TRACK GRINDER OPERATOR [address] [place] [address] Assigned Heart and Vascular Provider 05/28/23 Jelena David OD [address] [facility] [place] [address] Ophthalmology 06/15/23 Pao Joseph, VJ Personal Advocate & Liaison (PAL) Nurse 08/01/23 11/07/23 Esha Grimm PA-C [address] [place] [address] Assigned PCP 07/16/23 Valery Veronica PA-C 909 [place] [address] Physician Physician Neonatology Dermatology 09/19/23 Rey Tay MD 9 [place] [address] MD Gastroenterology 09/20/23 Rocky Zepeda DO 500 [place] [address] Physician Gastroenterology 09/20/23 Philip Dumont MD 6 [place] [address] Physician Ophthalmology 09/22/23 Meredith Carrera PA-C [address] [place] [address] Assigned Gastroenterology Provider 11/01/23 Neil Kent MD [address] [address] Dermatology 11/02/23 [place] [address] [place], [place] 137[address] Neurological Surgery 12/26/23 Audrey Waite PA-C 500 [place] [address] Physician Physician Neonatology Dermatology 02/28/24 documented as of this encounter
--- OUTSIDE RECORDS SUMMARY | 2024-03-23 16:06 | XMS_ITS | Encounter Summary ---
Author Organization [facility] Address [address] [place] [address] Care Team Providers Care Branch Lead Name Role Phone Lita Oseguera Unavailable Unavailable Marija Edgar INSPECTOR PRINTED CIRCUIT BOARDS LANGUAGE ASST Primary Care Provider + Chanelle Mccann INSPECTOR PRINTED CIRCUIT BOARDS CNM Unavailab le Kyara De La Fuente RN Unavailable [phone] Marija Edgar APRN LANGUAGE ASST Unavailable Mynor Broussard MD Unavailable [phone] Keisha Dotson MD Unavailable Galo Burrell MD Unavailable Unavailable Cristina Wood Unavailable Diana Desir [facility] Unavailable Rain Galaviz PA-C Unavailable Summer Lara MD Unavailable [phone] Summer Lara MD Unavailable [phone] Summer Lara MD Unavailable [phone] Tavia Wyatt MD Unavailable Unavailable Johnny Murillo MD Unavailable Erica Farrell APRN LANGUAGE ASST Unavailable Teresita Bean Walter [facility] Unavailable Tavia Wyatt MD Unavailable Unavailable Diana Desir [facility] Unavailable [phone] Rich Barrett MD Unavailable [phone] Neil Kent MD Unavailable Roney StoryM Unavailable [phone] Erica Farrell INSPECTOR PRINTED CIRCUIT BOARDS LANGUAGE ASST Unavailable + Diana Desir [facility] Unavailable [phone] Jelena David OD Unavailable Galo Burrell MD Unavailable Unavailable Livan Sharif MD Unavailable + Livan Sharif MD Unavailable + Catherine Cm MD Unavailable + Valery Veronica PA-C Unavailable [phone] Catherine Cm MD Unavailable + Johnny Murillo MD Unavailable [phone] Brea Quinn INSPECTOR PRINTED CIRCUIT BOARDS LANGUAGE ASST Unavailable [phone] Brea Quinn INSPECTOR PRINTED CIRCUIT BOARDS LANGUAGE ASST Unavailable [phone] Jose Francisco Johnson MD Unavailable Livan Sharif MD Unavailable + Catherine Cm MD Unavailable + Sydnie Martinez RN Unavailable Unavailable Alfonso Renteria MD Unavailable [phone] Esha Grimm PA-C Primary Care Provider [phone] Cheng Todd PA-C Unavailable Radha Lomeli INSPECTOR PRINTED CIRCUIT BOARDS LANGUAGE ASST Unavailable [phone] Jelena David OD Unavailable Pao Joseph RN Unavailable Unavailable AlfaEsha PA-C Unavailable [phone] Valery Veronica PA-C Unavailable Rey Tay MD Unavailable Rocky Zepeda DO Unavailable Philip Dumont MD Unavailable [phone] Meredith Carrera PA-C Unavailable [phone] Neil Kent MD Unavailable Juan Pablo Emmanuel MD Unavailable [phone] Audrey Waite PA-C Unavailable [phone] Encounter Details Date Type Department Care Team (Late st Contact Info) Description 01/02/2021 MyC Medical Advice [address] [address] Kierra Eller Social History Tobacco [...] you attend chur ch or congregation services? More than 4 times [...] Score 3 09/29/2020 [facility]at ional [facility] [...] [facility] [address] [facility] [address] [place] [address] Ebony Cid, INSPECTOR PRINTED CIRCUIT BOARDS LANGUAGE ASST 500 [place], [place] [address]925 03/27/2024 11:00 AM CDT Office Visit [facility] Monserrat [address] [facility] [address] [place] [address] Jelena David, [place] 3305 [facility] [place] [address] 03/29/2024 3:30 PM CDT Therapy [facility] 6[address]12 [facility] 160 [place] [address] Ingris Thompson, PT [facility] 516 [facility] 106 [place], [place] 0012[address] 04/05/2024 2:10 PM CDT Therapy Visit [facility] [address]77 [facility] [address] [place] [phone] Ingris Thompson, PT [facility] 6 [facility] 106 [place], [place] [address] 04/19/2024 2:45 PM CDT Office Visit [address] [phone] Audrey Waite PA-C 420 [facility] [address], [facility] 603 [place], [place] 367405 05/08/2024 1:30 PM CDT Office Visit [facility] [address] [place] [phone] Lauren Claudio PA-C [address] [place], [place] [phone] Esha Grimm PA-C [address] [place] [address] 06/21/2024 2:00 PM NEUROSURGERY SPINE PHYSICIAN Office Visit [facility] Clinics - [address], [address] [place] [phone] [place] [address] [place] [address] Johnny Penn MD [address] [place], [place] [address] documented as of this encounter Visit Diagnoses Not on filedocumented in this encounter Additional Health Concerns Infection Onset Date Last Indicated Resolved Time Rule Out COVID-19 05/11/2021 05/11/2021 05/13/2021 10:18 AM CDT Rule Out COVID-19 07/13/2021 07/13/2021 07/14/2021 3:04 PM NEUROSURGERY SPINE PHYSICIAN Rule Out COVID-19 07/18/2021 07/18/2021 07/20/2021 1:56 PM NEUROSURGERY SPINE PHYSICIAN COVID-19 07/18/2021 07/18/2021 08/08/2021 11:3 9 PM NEUROSURGERY SPINE PHYSICIAN Rule Out COVID-19 12/18/2021 12/18/2021 12/19/2021 11:34 AM CDT Rule Out COVID-19 02/24/2022 02/24/2022 02/25/2022 1:08 PM CDT Rule Out COVID-19 04/26/2022 04/26/2022 04/26/2022 6:47 AM CDT Rule Out COVID-19 05/17/2022 05/17/2022 05/17/2022 10:20 PM NEUROSURGERY SPINE PHYSICIAN Rule Out COVID-19 06/09/2022 06/09/2022 06/09/2022 9:35 AM NEUROSURGERY SPINE PHYSICIAN COVID-19 06/09/2022 06/09/2022 06/30/2022 11:4 1 PM NEUROSURGERY SPINE PHYSICIAN Rule Out COVID-19 11/10/2022 11/10/2022 11/11/2022 12:17 PM CDT Rule Out COVID-19 03/07/2023 03/07/2023 03/07/2023 1:20 PM CDT Rule Out COVID-19 12/26/2023 12/26/2023 12/26/2023 9:50 AM CDT Assessment Noted Time PHQ-9 Depression Total Score: 6 03/22/20 21 3:25 PM CDT documented as of this encounter Care Teams Branch Lead Relationship Specialty Start Date End Date Marija Edgar APRN LANGUAGE ASST PCP - General Nurse Practitioner 04/30/20 04/14/23 Esha Grimm PA-C [address] [place] [phone] PCP - General Family Medicine 05/04/23 Lita Oseguera Personal Advocate & Liaison (PAL) 02/28/20 03/27/23 Chanelle Mccann APRN CNM 97138 [facility] 200 [place] [address] Assigned OBGYN Provider 05/02/2005/09 Kyara De La Fuente, RN Specialty Kettle Skimmer Neurology 06/04/20 03/05/21 Marija Edgar APRN LANGUAGE ASST Assigned PCP 06/08/20 04/29/23 Mynor Broussard MD 6363 [facility] 500 [place], [place] [address] Assigned Surgical Provider 06/01/20 11/28/21 Keisha Dotson MD 909 [place], [place] 712775 Assigned Neuroscience Provider 06/04/20 04/01/23 Galo Burrell MD Assigned Heart and Vascular Provider 10/05/20 04/02/22 Cristina Wood Financial Resource Worker 02/09/21 02/09/21 Thang Diana Stanislav, [facility] [address] [place] [address] Pharmacist Pharmacist 04/17/21 Rain Galaviz PA-C [address] [place] [address] [place] [address] Physician Etl Analyst Dermatology 04/28/21 Summer Lara MD [address] [place] [address] Assigned OBGYN Provider 05/10/2105/23 Summer Lara MD [address] [place] [address] Assigned OBGYN Provider 05/31/21 Summer Lara MD [address] [place] [address] Assigned OBGYN Provider 05/24/2105/30 Tavia Wyatt MD [address] [place] [address] Dermatology 07/14/21 Johnny Murillo MD [address] [place] [address] Assigned Musculoskeletal Provider 08/30/21 03/17/22 Erica Farrell APRN LANGUAGE ASST 6405 [facility] [address] [place] [address] Nurse Practitioner Cardiovascular Disease 09/09/21 Teresita Bean [facility] [address] [facility] [address] [place] [phone] Pharmacist Pharmacist 09/24/21 09/29/21 Tavia Wyatt MD Assigned Surgical Provider 11/29/21 05/07/22 [facility] 3033 [place] [address] Assigned MTM Pharmacist 01/02/22 Rich Barrett MD [address] [place] [address] Physician Ophthalmology 01/21/22 Neil Kent MD 500 [place] [address] Dermatology 02/24/22 Roney Story DPM 44[address] [facility] 300 [place] [address] Assigned Musculoskeletal Provider 03/20/22 08/13/22 Erica Farrlel APRN LANGUAGE ASST 1700 [place] [address] Assigned Heart and Vascular Provider 04/03/22 04/16/22 [facility] 3033 [place] [address] Assigned MTM Pharmacist 04/07/22 Jelena David OD [address] [place] [address] [place] [address] Assigned Surgical Provider 05/08/22 10/08/22 Galo Burrell MD Assigned Heart and Vascular Provider 04/17/22 06/11/22 Livan Sharif MD [address], [facility] [address] [place] 443585 Cardiovascular Disease 05/14/22 Livan Sharif MD [address], [facility] [address] [place] 6[address]15 Assigned Heart and Vascular Provider 06/12/22 07/23/22 Catherine Cm MD [address] [facility]00 [place] 357575 Cardiovascular Disease 07/21/22 Valery Veronica, PA-C [address] [place] [address] 826645 Physician Etl Analyst Dermatology 07/21/22 Catherine Cm MD [address] [facility]00 [place] 449405 Assigned Heart and Vascular Provider 07/24/22 11/05/22 Johnny Murillo MD [facility] [address] 358744 Assigned Musculoskeletal Provider 08/14/22 10/08/22 Brea Quinn APRN LANGUAGE ASST [address] [place] [address] [phone] Nurse Practitioner Dermatology 09/21/22 Brea Quinn, INSPECTOR PRINTED CIRCUIT BOARDS LANGUAGE ASST 6401 [facility] [place] [address] Assigned Surgical Provider 10/09/22 [place] [address] [address] Assigned Musculoskeletal Provider 10/09/22 Livan Sharif MD [address] [facility] [address] [place], [place] 719985 Assigned Heart and Vascular Provider 11/06/22 11/12/22 Catherine Cm MD [address] [facility] [place] [address] Assigned Heart and Vascular Provider 11/13/22 05/27/23 Sydnie Martinez, RN Personal Advocate & Liaison (PAL) Family Medicine 03/28/23 07/31/23 Alfonso Renteria MD 5775 [facility] 200 [place] [address] Assigned Neuroscience Provider 04/02/23 Cheng Todd PA-C [address] [place] [address] [id number] Assigned PCP 04/30/23 07/15/23 Radha Lomeli APRN LANGUAGE ASST [address] [place] [address] Assigned Heart and Vascular Provider 05/28/23 Jelena David OD [address] [facility] [place] [address] MD Ophthalmology 06/15/23 Pao Joseph, RN Personal Advocate & Liaison (PAL) Nurse 08/01/23 11/07/23 Esha Grimm PA-C [address] [place] [address] Assigned PCP 07/16/23 Valery Veronica PA-C [address] [place] [address] 470975 Physician Etl Analyst Dermatology 09/19/23 Rey Tay MD [address] [place] [address] 616235 MD Gastroenterology 09/20/23 Rocky Zepeda DO [address] [place] [address] 468675 Physician Gastroenterology 09/20/23 Philip Dumont MD [address] [place] [address] 346215 Physician Ophthalmology 09/22/23 Meredith Carrera PA-C [address] [place] [address] 145375 Assigned Gastroenterology Provider 11/01/23 Neil Kent MD [address] [address] Dermatology 11/02/23 [place] [address] [place] [address] Neurological Surgery 12/26/23 Audrey Waite PA-C 500 [place], [place] 230285 Physician Etl Analyst Dermatology 02/28/24 documented as of this encounter
--- OUTSIDE RECORDS SUMMARY | 2024-03-23 16:06 | XMS_ITS | Encounter Summary ---
Author Organization [facility] Address [address] [place] [address] Care Team Providers Care Poising Inspector Name Role Phone Lita Oseguera Unavailable Unavailable Marija Edgar APRN BLENDER CONVEYOR OPERATOR Primary Care Provider + Chanelle Mccann APRN CNM Unavailab le Kyara De La Fuente RN Unavailable [phone] Marija Edgar APRN BLENDER CONVEYOR OPERATOR Unavailable Mynor Broussard MD Unavailable Keisha Dotson MD Unavailable Stacey Briones MATERIAL DISPATCHER Unavailable Lesley Moody CHW Unavailable Mary Mejia Unavailable Unavailable Lita Oseguera Unavailable Unavailable Galo Burrell MD Unavailable Unavailable Cristina Wood Unavailable Lesley Moody CHW Unavailable Meredith Bedoya Unavailable Unavailable Cristina Wood Unavailable Diana Desir [facility] Unavailable Rain Galaviz PA-C Unavailable [phone] Summer Lara MD Unavailable [phone] Summer Lara MD Unavailable [phone] Summer Lara MD Unavailable + [phone] Tavia Wyatt MD Unavailable Unavailable SemJohnny mckeon MD Unavailable +1- Erica Farrell APRN BLENDER CONVEYOR OPERATOR Unavailable + Vikas Teresitafazal Watson H Unavailable Tavia Wyatt MD Unavailable Unavailable Diana Desir [facility] Unavailable [phone] Rich Barrett MD Unavailable [phone] Neil Kent MD Unavailable Roney Story DPM Unavailable [phone] Erica Farrell DATA TECHNICIAN BLENDER CONVEYOR OPERATOR Unavailable + Diana Desir [facility] Unavailable [phone] Tommy Davidmao Templetone OD Unavailable [phone] Galo Burrell MD Unavailable Unavailable Livan Sharif MD Unavailable + Livan Sharif MD Unavailable + Catherine Cm MD Unavailable + Valery Veronica PA-C Unavailable [phone] Catherine Cm MD Unavailable + Johnny Murillo MD Unavailable +1- Brea Quinn APRN BLENDER CONVEYOR OPERATOR Unavailable [phone] Brea Quinn DATA TECHNICIAN BLENDER CONVEYOR OPERATOR Unavailable [phone] Jose Francisco Johnson MD Unavailable Livan Sharif MD Unavailable + Catherine Cm MD Unavailable + Sydnie Martinez RN Unavailable Unavailable Alfonso Renteria MD Unavailable [phone] Esha Grimm PA-C Primary Care Provider Cheng Todd PA-C Unavailable Radha Lomeli DATA TECHNICIAN BLENDER CONVEYOR OPERATOR Unavailable FrankieJelena SONJA Unavailable [phone] Pao Joseph RN Unavailable Unavailable Esha Grimm-C Unavailable [phone] Valery Veronica PA-C Unavailable Rey Tay MD Unavailable Rocky Zepeda DO Unavailable Philip Dumont MD Unavailable [phone] Meredith Carrera PA-C Unavailable Neil Kent MD Unavailable Juan Pablo Emmanuel MD Unavailable Audrey Waite PA-C Unavailable Reason for Visit * Reason Onset Date Comments MyChart Communication 09/08/2020 Encounter Details Date Type Department Care Team (Latest Contact Info) Description 09/08/2020 [facility] [address] [address] Marija Edgar APRN BLENDER CONVEYOR OPERATOR [address] [place] [address] MyChart Communication Social History Tobacco Use Types [...] week 08/07/2020 How often do you attend [facility] or adventism services? More than 4 times [...] 0 08/12/2020 [facility] [...] COVID-19? No / Unsure 09/09/2020 10:09 AM PHOTOENGRAVING FINISHER documented as of this encounter Miscellaneous Notes * Telephone Encounter - Natasha Luis RN - 09/09/2020 7:29 AM CST See mychart message, cardio ordered, pt cannot view echo [...] RN, BSN Message handled by CLINIC NURSE.' OENGRAVING FINISHER * Telephone Encounter - Ever Cardozo MA - 09/09/2020 7:08 AM CST Triage, could you please see if results are posted yet in regards to patients ultrasound. Ever Cardozo WET COTTON FE[facility]ER ([facility]) OENGRAVING FINISHER documented in this encounter Plan of Treatment Upcoming Encounters Date Type Department Care Team (Late st Contact Info) Description 03/26/2024 11:20 AM CDT Office Visit [facility] Spine and Neurosurgery [address] [place] [address] [address] [place] [address] Ebony Cid, ARLENE BLENDER CONVEYOR OPERATOR [address] [place] [address] 03/27/2024 11:00 AM CDT Office Visit [facility] [address] [facility] [address] [place] [phone] Jelena David, SONJA [address] [facility] [place] [address] 03/29/2024 3:30 PM CDT Therapy Visit [facility] Rehabilitation Services [address] [place] [phone] Ingris Thompson, PT [facility] [address] [facility] [address] [place] [address] 04/05/2024 2:10 PM CDT Therapy Visit [facility] Rehabilitation Services [place] [address] [facility] [address] [place] [phone] Ingris Thompson, PT [facility] [address] [facility] [address] [place], [place] [address] 04/19/2024 2:45 PM CDT Office Visit [address] [phone] Audrey Waite PA-C [address] [facility] [address], [facility] [address] [place], [place] [address] 05/08/2024 1:30 PM CDT Office Visit [facility] [address] [place] [phone] Lauren Claudio PA-C [address] [place], [place] [phone] Esha Grimm PA-C [address] [place] [address] 06/21/2024 2:00 PM PHOTOENGRAVING FINISHER Office Visit [facility] Neurology Clinics - [place] [address] [facility], [address] [place] [address] [place] [address] [place] [phone] Johnny Penn MD [address] [facility] [place] [address] [phone] (work) documented as of this encounter Visit Diagnoses Not on filedocumented in this encounter Additional Health Concerns Infection Onset Date Last Indicated Resolved Time Rule Out COVID-19 09/24/2020 09/24/2020 09/24/2020 9:24 AM CDT Rule Out COVID-19 11/05/2020 11/05/2020 11/06/2020 1:09 PM CDT Rule Out COVID-19 05/11/2021 05/11/2021 05/13/2021 10:18 AM CDT Rule Out COVID-19 07/13/2021 07/13/2021 07/14/2021 3:04 PM PHOTOENGRAVING FINISHER Rule Out COVID-19 07/18/2021 07/18/2021 07/20/2021 1:56 PM PHOTOENGRAVING FINISHER COVID-19 07/18/2021 07/18/2021 08/08/2021 11:3 9 PM PHOTOENGRAVING FINISHER Rule Out COVID-19 12/18/2021 12/18/2021 12/19/2021 11:34 AM CDT Rule Out COVID-19 02/24/2022 02/24/2022 02/25/2022 1:08 PM CDT Rule Out COVID-19 04/26/2022 04/26/2022 04/26/2022 6:47 AM CDT Rule Out COVID-19 05/17/2022 05/17/2022 05/17/2022 10:20 PM PHOTOENGRAVING FINISHER Rule Out COVID-19 06/09/2022 06/09/2022 06/09/2022 9:35 AM PHOTOENGRAVING FINISHER COVID-19 06/09/2022 06/09/2022 06/30/2022 11:4 1 PM PHOTOENGRAVING FINISHER Rule Out COVID-19 11/10/2022 11/10/2022 11/11/2022 12:17 PM CDT Rule Out COVID-19 03/07/2023 03/07/2023 03/07/2023 1:20 PM CDT Rule Out COVID-19 12/26/2023 12/26/2023 12/26/2023 9:50 AM CDT Assessment Noted Time PHQ-9 Depression Total Score: 9 06/25/20 20 7:04 AM PHOTOENGRAVING FINISHER documented as of this encounter Care Teams Poising Inspector Relationship Specialty Start Date End Date Marija Edgar APRN BLENDER CONVEYOR OPERATOR PCP - General Nurse Practitioner 04/30/20 04/14/23 Esha Grimm PA-C [address] [place] [phone] PCP - General Family Medicine 05/04/23 Lita Oseguera Personal Advocate & Liaison (PAL) 02/28/20 03/27/23 Chanelle Mccann APRN [place] [address] [address] [address] [place] [address] Assigned OBGYN Provider 05/02/2005/09 Kyara De La Fuente, RN [facility] Manager Neurology 06/04/20 03/05/21 Marija Edgar APRN BLENDER CONVEYOR OPERATOR Assigned PCP 06/08/20 04/29/23 Mynor Broussard MD [address] [facility] 500 [place] [address] Assigned Surgical Provider 06/01/20 11/28/21 Keisha Dotson MD [address] [place], [place] [address] Assigned Neuroscience Provider 06/04/20 04/01/23 Stacey Briones, MATERIAL DISPATCHER [facility] Manager Primary Care - CC 08/11/2012/30 Lesley Moody, CHW Community Health Worker 08/11/2010/01 Mary Mejia Financial Resource Worker 09/02/20 10/06/20 Lita Oseguera Personal Advocate & Liaison (PAL) Family Medicine 09/10/20 09/21/20 Galo Burrell MD Assigned Heart and Vascular Provider 10/05/20 04/02/22 Cristina Wood Financial Resource Worker 10/07/20 10/14/20 Lesley Moody, [facility] Community Health Worker 10/23/2012/30 Meredith Bedoya Financial Resource Worker 10/23/20 11/23/20 Cristina Wood Financial Resource Worker 02/09/21 02/09/[address] [facility] [address] [place] [address] Pharmacist Pharmacist 04/17/21 Rain Galaviz PA-C [address] [place] [address] [address] [place], [place] [phone] Physician Business Consultant Dermatology 04/28/21 Summer Lara MD [address] [place] [address]654 Assigned OBGYN Provider 05/10/2105/23 Summer Lara MD [address] [place] [address] Assigned OBGYN Provider 05/31/21 2 Summer Lara MD [address] [place] [address] Assigned OBGYN Provider 05/24/2105/30 Tavia Wyatt MD [address] [place] [address] Dermatology 07/14/21 Johnny Murillo MD [address] [place] [address] Assigned Musculoskeletal Provider 08/30/21 03/17/22 Erica Farrell APRN BLENDER CONVEYOR OPERATOR [address] [place] [address] Nurse Practitioner Cardiovascular Disease 09/09/21 Teresita Bean, [facility] [address] [facility] [address] [place] [phone] Pharmacist Pharmacist 09/24/21 09/29/21 Tavia Wyatt MD Assigned Surgical Provider 11/29/21 05/07/22 Diana Desir, [facility] [address] [place] [address] Assigned MTM Pharmacist 01/02/22 Rich Barrett MD [address] [facility] [address] [place], [place] [address] Physician Ophthalmology 01/21/22 Neil Kent MD [address] [place] [address] Dermatology 02/24/22 Roney Story DPM [address] [facility] [address] [place] [address] Assigned Musculoskeletal Provider 03/20/22 08/13/22 Erica Farrell APRN BLENDER CONVEYOR OPERATOR [address] [place] [address] Assigned Heart and Vascular Provider 04/03/22 04/16/[address] [facility] [address] [place] [address] Assigned MTM Pharmacist 04/07/22 [place] David [place] [address] [facility] [place] [address] Assigned Surgical Provider 05/08/22 10/08/22 Galo Burrell MD Assigned Heart and Vascular Provider 04/17/22 06/11/22 Livan Sharif MD [address] [facility] [address] [place] [address] Cardiovascular Disease 05/14/22 Livan Sharif MD [address] [facility] [address] [place] [address] Assigned Heart and Vascular Provider 06/12/22 07/23/22 Catherine Cm MD [address] [place] [address] Cardiovascular Disease 07/21/22 Valery Veronica, PAUcheC [address] [place], [place] [address] Physician Business Consultant Dermatology 07/21/22 Catherine Cm MD [address] [place] [address] [place] [address] Assigned Heart and Vascular Provider 07/24/22 11/05/22 Johnny Murillo MD [address] [place] [address] Assigned Musculoskeletal Provider 08/14/22 10/08/22 Brea Quinn APRN BLENDER CONVEYOR OPERATOR [address] [place] [address] [phone] Nurse Practitioner Dermatology 09/21/22 Brea Quinn APRN BLENDER CONVEYOR OPERATOR [address] [place] [address] Assigned Surgical Provider 10/09/22 [place] [address] [address] [address] Assigned Musculoskeletal Provider 10/09/22 Livan Sharif MD [address] [place] [address] [place] [address] Assigned Heart and Vascular Provider 11/06/22 11/12/22 Catherine Cm MD [address] [place] [address] [place] [address] Assigned Heart and Vascular Provider 11/13/22 05/27/23 Sydnie Martinez RN Personal Advocate & Liaison (PAL) Family Medicine 03/28/23 07/31/23 Alfonso Renteria MD [address] [facility] [address] [place] [address] Assigned Neuroscience Provider 04/02/23 Cheng Todd PA-C [address] [place] [address] [phone] Assigned PCP 04/30/23 07/15/23 Radha Lomeli APRN BLENDER CONVEYOR OPERATOR [address] [facility] [address] [place], [place] [address] Assigned Heart and Vascular Provider 05/28/23 [place] David [place] [address] [facility] [address] [place] [id number] Ophthalmology 06/15/23 Pao Joseph, VJ Personal Advocate & Liaison (PAL) Nurse 08/01/23 11/07/23 Esha Grimm PA-C [address] [place] [address] Assigned PCP 07/16/23 Valery Veronica PA-C [address] [place] [address] Physician Business Consultant Dermatology 09/19/23 Rey Tay MD [address] [place] [address] [phone] Gastroenterology 09/20/23 Rocky Zepeda DO [address] [place] [address] [phone] Physician Gastroenterology 09/20/23 Philip Dumont MD [address] [place], [place] 9[address] Physician Ophthalmology 09/22/23 Meredith Carrera PA-C [address] [place] [address] [phone] Assigned Gastroenterology Provider 11/01/23 Neil Kent MD [address] [phone] MD Dermatology 11/02/23 [place] [address] [place] [address] [place] [address] [phone] Neurological Surgery 12/26/23 Audrey Waite PA-C 500 [place], [place] 220[address] Physician Business Consultant Dermatology 02/28/24 documented as of this encounter
--- OUTSIDE RECORDS SUMMARY | 2024-03-23 16:07 | XMS_ITS | Encounter Summary ---
Author Organization [facility] Address [address] [place] [address] Care Team Providers Care Vocational Services Specialist Name Role Phone Lita Oseguera Unavailable Unavailable Marija Edgar APRN BUTANE COMPRESSOR OPERATOR Primary Care Provider + Chanelle Mccann APRN CNM Unavailab le Kyara De La Fuente RN Unavailable [phone] Marija Edgar APRN BUTANE COMPRESSOR OPERATOR Unavailable [phone] Mynor Broussard MD Unavailable [phone] Keisha Dotson MD Unavailable [phone] Stacey Briones HYDRO EXCAVATION OPERATOR Unavailable [phone] Lesley Moody CHW Unavailable Mary Mejia Unavailable Unavailable Lita Oseguera Unavailable Unavailable Galo Burrell MD Unavailable Unavailable Cristina Wood Unavailable Lesley Moody CHW Unavailable Meredith Bedoya Unavailable Unavailable Cristina Wood Unavailable Diana Desir [facility] Unavailable Rain Galaviz PA-C Unavailable Summer Lara MD Unavailable [phone] Summer Lara MD Unavailable [phone] Summer Lara MD Unavailable + [phone] Tavia Wyatt MD Unavailable Unavailable SemJohnny mckeon MD Unavailable +1- Erica Farrell APRN BUTANE COMPRESSOR OPERATOR Unavailable + Vikas Teresitafazal Watson H Unavailable Tavia Wyatt MD Unavailable Unavailable Diana Desir [facility] Unavailable [phone] Rich Barrett MD Unavailable [phone] Neil Kent MD Unavailable Roney Story DPM Unavailable [phone] Erica Farrell CARDIOLOGY CONSULTANT BUTANE COMPRESSOR OPERATOR Unavailable + Diana Desir [facility] Unavailable [phone] Tommy Davidmao Templetone OD Unavailable [phone] Galo Burrell MD Unavailable Unavailable Livan Sharif MD Unavailable + Livan Sharif MD Unavailable + Catherine Cm MD Unavailable + Valery Veronica PA-C Unavailable [phone] Catherine Cm MD Unavailable + Johnny Murillo MD Unavailable +1- Brea Quinn APRN BUTANE COMPRESSOR OPERATOR Unavailable [phone] Brea Quinn CARDIOLOGY CONSULTANT BUTANE COMPRESSOR OPERATOR Unavailable [phone] Jose Francisco Johnson MD Unavailable Livan Sharif MD Unavailable + Catherine Cm MD Unavailable + Sydnie Martinez RN Unavailable Unavailable Alfonso Renteria MD Unavailable [phone] Esha Grimm PA-C Primary Care Provider [phone] Cheng Todd PA-C Unavailable Radha Lomeli APRN BUTANE COMPRESSOR OPERATOR Unavailable FrankieJelena SONJA Unavailable Pao Joseph RN Unavailable Unavailable Esha Grimm-C Unavailable Valery Veronica PA-C Unavailable [phone] Rey Tay MD Unavailable Rocky Zepeda DO Unavailable Philip Dumont MD Unavailable Meredith Carrera PA-C Unavailable [phone] Neil Kent MD Unavailable Juan Pablo Emmanuel MD Unavailable Audrey Waite PA-C Unavailable Reason for Visit * Reason Onset Date Comments Patient/info Update 08/31/2020 appointment request Encounter Details Date Type Department Care Team (Late st Contact Info) Description 08/31/2020 My[facility] Medical Advice [address] [address] Marija Edgar APRN BUTANE COMPRESSOR OPERATOR [address] [place] [address] Patient/info Update (appointment request ) Social History [...] you attend [facility] or [facility]? More than 4 times [...] Answer Date Recorded PHQ-2 Score 0 08/12/2020 [facility] [...] COVID-19? No / Unsure 09/03/2020 12:11 PM SHIPPING AND RECEIVING SPECIALIST documented as of this encounter Miscellaneous Notes * Telephone Encounter - Maryjane Mccallum RN - 09/01/2020 7:21 AM SHIPPING AND RECEIVING SPECIALIST Patient sent message requesting office visit with [...] Office Visit with Marija Edgar APRN CNP [facility] ([facility] [place] ) [address] [facility] [phone] Maryjane Mccallum, Registered Nurse [facility] PING AND RECEIVING SPECIALIST documented in this encounter Plan of Treatment Upcoming Encounters Date Type Department Care Team (Late st Contact Info) Description 03/26/2024 11:20 AM CDT Office Visit [facility] Spine and Neurosurgery [address] [facility] [address] [place] [phone] Ebony Cid APRN BUTANE COMPRESSOR OPERATOR [address] [place] [address] 03/27/2024 11:00 AM CDT Office Visit [facility] [place]at [address] [facility] [address] [place] [phone] Jelena David, [address] [facility] [place] [address] 03/29/2024 3:30 PM CDT Therapy Visit [facility] Rehabilitation Services [place] [address] [facility] [address] [place] [phone] Ingris Thompson, PT [facility] [address] [facility] [address] [place] [address] 04/05/2024 2:10 PM CDT Therapy Visit [facility] [place] [address] [facility] [address] [place] [address] Ingris Thompson, PT [facility] [address] [facility] [address] [place], [place] [address] 04/19/2024 2:45 PM CDT Office Visit [facility] [address] [place] [phone] Audrey Waite PA-C [address] [facility] [address], [facility] [address] [place], [place] [address] 05/08/2024 1:30 PM CDT Office Visit [facility] [address] [place] [address] Lauren Claudio PA-C [address] [place], [place] [phone] Esha Grimm PA-C [address] [place] [address] 06/21/2024 2:00 PM SHIPPING AND RECEIVING SPECIALIST Office Visit [facility] Neurology Clinics - [address], [address] [place] [phone] [place] [address] [place] [address] Johnny Penn MD [address] [place], [place] [phone] documented as of this encounter Visit Diagnoses Not on filedocumented in this encounter Additional Health Concerns Infection Onset Date Last Indicated Resolved Time Rule Out COVID-19 09/24/2020 09/24/2020 09/24/2020 9:24 AM CDT Rule Out COVID-19 11/05/2020 11/05/2020 11/06/2020 1:09 PM CDT Rule Out COVID-19 05/11/2021 05/11/2021 05/13/2021 10:18 AM CDT Rule Out COVID-19 07/13/2021 07/13/2021 07/14/2021 3:04 PM SHIPPING AND RECEIVING SPECIALIST Rule Out COVID-19 07/18/2021 07/18/2021 07/20/2021 1:56 PM SHIPPING AND RECEIVING SPECIALIST COVID-19 07/18/2021 07/18/2021 08/08/2021 11:3 9 PM SHIPPING AND RECEIVING SPECIALIST Rule Out COVID-19 12/18/2021 12/18/2021 12/19/2021 11:34 AM CDT Rule Out COVID-19 02/24/2022 02/24/2022 02/25/2022 1:08 PM CDT Rule Out COVID-19 04/26/2022 04/26/2022 04/26/2022 6:47 AM CDT Rule Out COVID-19 05/17/2022 05/17/2022 05/17/2022 10:20 PM SHIPPING AND RECEIVING SPECIALIST Rule Out COVID-19 06/09/2022 06/09/2022 06/09/2022 9:35 AM SHIPPING AND RECEIVING SPECIALIST COVID-19 06/09/2022 06/09/2022 06/30/2022 11:4 1 PM SHIPPING AND RECEIVING SPECIALIST Rule Out COVID-19 11/10/2022 11/10/2022 11/11/2022 12:17 PM CDT Rule Out COVID-19 03/07/2023 03/07/2023 03/07/2023 1:20 PM CDT Rule Out COVID-19 12/26/2023 12/26/2023 12/26/2023 9:50 AM CDT Assessment Noted Time PHQ-9 Depression Total Score: 9 06/25/ 20 7:04 AM SHIPPING AND RECEIVING SPECIALIST documented as of this encounter Care Teams Vocational Services Specialist Relationship Specialty Start Date End Date Marija Edgar APRN BUTANE COMPRESSOR OPERATOR PCP - General Nurse Practitioner 04/30/20 04/14/23 Esha Grimm PA-C [address] [place] [phone] PCP - General Family Medicine 05/04/23 Lita Oseguera Personal Advocate & Liaison (PAL) 02/28/20 03/27/23 Chanelle Mccann APRN CNM [address] [place] [address] [address] [place], [place] 831667 Assigned OBGYN Provider 05/02/2005/09 Kyara De La Fuente, VJ Specialty Cylinder Press Operator Neurology 06/04/20 03/05/21 Marija Edgar APRN BUTANE COMPRESSOR OPERATOR Assigned PCP 06/08/20 04/29/23 Mynor Broussard MD [address] [facility] 500 [place] [address] Assigned Surgical Provider 06/01/20 11/28/21 Keisha Dotson MD 909 [place] [address] Assigned Neuroscience Provider 06/04/20 04/01/23 Stacey Briones, HYDRO EXCAVATION OPERATOR Lead Cylinder Press Operator Primary Care - CC 08/11/2012/30 Lesley Moody, W Community Health Worker 08/11/2010/01 Mary Mejia Financial Resource Worker 09/02/20 10/06/20 Lita Oseguera Personal Advocate & Liaison (PAL) Family Medicine 09/10/20 09/21/20 Gaol Burrell MD Assigned Heart and Vascular Provider 10/05/20 04/02/22 Cristina Wood Financial Resource Worker 10/07/20 10/14/20 Lesley Moody, [facility] Community Health Worker 10/23/2012/30 Meredith Bedoya Financial Resource Worker 10/23/20 11/23/20 Cristina Wood Financial Resource Worker 02/09/21 02/09/21 Diana Desir, [facility] [address] [place], [place] [phone] Pharmacist Pharmacist 04/17/21 Rain Galaviz PA-C [address] [place] [address] [address] [place], [place] [phone] Physician Wood Machinist Apprentice Dermatology 04/28/21 Summer Lara MD [address] [place] [address]39[address] Assigned OBGYN Provider 05/10/2105/23 Summer Lara MD [address] [place] [address] 495144 Assigned OBGYN Provider 05/31/21 Summer Lara MD [address] [place] [address] Assigned OBGYN Provider 05/24/2105/30 Tavia Wyatt MD [address] [address] Dermatology 07/14/21 Johnny Murillo MD [address] [place] [address] Assigned Musculoskeletal Provider 08/30/21 03/17/22 Erica Farrell APRN BUTANE COMPRESSOR OPERATOR [address] [place] [address] Nurse Practitioner Cardiovascular Disease 09/09/21 Teresita Bean, [facility] [address] [address] Pharmacist Pharmacist 09/24/21 09/29/21 Tavia Wyatt MD Assigned Surgical Provider 11/29/21 05/07/22 [facility] [address] [place] [address] Assigned MTM Pharmacist 01/02/22 Rich Barrett MD [address] [facility] [address] [place], [place] [address] Physician Ophthalmology 01/21/22 Neil Kent MD 500 [place], [place] 9738[address] Dermatology 02/24/22 Roney Story DPM [address] [facility] [address] [place], [place] 550547 Assigned Musculoskeletal Provider 03/20/22 08/13/22 Erica Farrell APRN BUTANE COMPRESSOR OPERATOR [address] [place] [address] Assigned Heart and Vascular Provider 04/03/22 04/16/22 Diana Desir, [facility] [address] [place] [address] Assigned MTM Pharmacist 04/07/22 Jelena David OD [address] [facility] [place] [address] Assigned Surgical Provider 05/08/22 10/08/22 Galo Burrell MD Assigned Heart and Vascular Provider 04/17/22 06/11/22 Livan Sharif MD [address] [place] [address] Cardiovascular Disease 05/14/22 Livan Sharif MD [address] [place] [address] Assigned Heart and Vascular Provider 06/12/22 07/23/22 Catherine Cm MD [address] [place] 60[address] Cardiovascular Disease 07/21/22 Valery Veronica, PA-C [address] [place] [address] Physician Wood Machinist Apprentice Dermatology 07/21/22 Catherine Cm MD [address] [place] [address] Assigned Heart and Vascular Provider 07/24/22 11/05/22 Johnny Murillo MD [address] [phone] Assigned Musculoskeletal Provider 08/14/22 10/08/22 Brea Quinn APRN BUTANE COMPRESSOR OPERATOR [address] [place], [place] [address] Nurse Practitioner Dermatology 09/21/22 Brea Quinn APRN BUTANE COMPRESSOR OPERATOR [address] [facility] [place] 31[address] Assigned Surgical Provider 10/09/22 [place] [address] 276947 Assigned Musculoskeletal Provider 10/09/22 Livan Sharif MD [address] [facility] [address] [place] [address] Assigned Heart and Vascular Provider 11/06/22 11/12/22 Catherine Cm MD [address] [place] 947[address] Assigned Heart and Vascular Provider 11/13/22 05/27/23 Sydnie [place] RN Personal Advocate & Liaison (PAL) Family Medicine 03/28/23 07/31/23 Alfonso Renteria MD [address] [facility] [address] [place] [address] Assigned Neuroscience Provider 04/02/23 Cheng Todd PA-C [address] [place] [address] Assigned PCP 04/30/23 07/15/23 Radha Lomeli, ARLENE BUTANE COMPRESSOR OPERATOR [address] [facility] [address] [place] [address] Assigned Heart and Vascular Provider 05/28/23 Jelena David OD [address] [facility] [place] [address] Ophthalmology 06/15/23 Pao Joseph, VJ Personal Advocate & Liaison (PAL) Nurse 08/01/23 11/07/23 Esha Grimm PA-C [address] [place] [phone] Assigned PCP 07/16/23 Valery Veronica PA-C [address] [place] [address] Physician Wood Machinist Apprentice Dermatology 09/19/23 Rey Tay MD [address] [place] [address] 917885 Gastroenterology 09/20/23 Rocky Zepeda DO [address] [place] [place] [address] Physician Gastroenterology 09/20/23 Philip Dumont MD [address] [place] [address] Physician Ophthalmology 09/22/23 Meredith Carrera PA-C [address] [place] [address] Assigned Gastroenterology Provider 11/01/23 Neil Kent MD [address] [place] [address] Dermatology 11/02/23 [place] [address] 115927 Neurological Surgery 12/26/23 Audrey Waite PA-C 500 [place] [address] Physician Wood Machinist Apprentice Dermatology 02/28/24 documented as of this encounter
--- OUTSIDE RECORDS SUMMARY | 2024-03-23 16:07 | XMS_ITS | Encounter Summary ---
Author Organization [facility] Address [address] [place] [address] Care Team Providers Care Executive Director Of Marketing Name Role Phone Lita Oseguera Unavailable Unavailable Marija Edgar APRN INSPECTOR SET UP AND LAY OUT Primary Care Provider + Chanelle Mccann ROD PLACER CNM Unavailab le Kyara De La Fuente RN Unavailable [phone] Marija Edgar APRN INSPECTOR SET UP AND LAY OUT Unavailable Mynor Broussard MD Unavailable [phone] Keisha Dotson MD Unavailable [phone] Mary Mejia Unavailable Unavailable Stacey Briones PERINATAL DIRECTOR Unavailable [phone] Lesley Moody CHW Unavailable [phone] Mary Mejia Unavailable Unavailable Lita Oseguera Unavailable Unavailable Galo Burrell MD Unavailable Unavailable Cristina Wood Unavailable Lesley Moody CHW Unavailable Meredith Bedoya Unavailable Unavailable Cristina Wood Unavailable Diana Desir [facility] Unavailable [phone] Ruhland, Rain Lena PA-C Unavailable Summer Lara MD Unavailable [phone] Summer Lara MD Unavailable [phone] Summer Lara MD Unavailable [phone] Tavia Wyatt MD Unavailable Unavailable SemJohnny mckeon MD Unavailable [phone] Erica Farrell APRN INSPECTOR SET UP AND LAY OUT Unavailable + Vikas Teresita Watson H Unavailable Tavia Wyatt MD Unavailable Unavailable Diana Desir [facility] Unavailable [phone] Rich Barrett MD Unavailable [phone] Neil Kent MD Unavailable Roney Story DPM Unavailable [phone] Erica Farrell APRN INSPECTOR SET UP AND LAY OUT Unavailable + Diana Desir [facility] Unavailable [phone] Jelena David Radha OD Unavailable Galo Burrell MD Unavailable Unavailable Livan Sharif MD Unavailable + Livan Sharif MD Unavailable + Catherine Cm MD Unavailable + Valery Veronica PA-C Unavailable [phone] Catherine Cm MD Unavailable + Johnny Murillo MD Unavailable +[phone] Brea Quinn APRN INSPECTOR SET UP AND LAY OUT Unavailable [phone] Brea Quinn ROD PLACER INSPECTOR SET UP AND LAY OUT Unavailable [phone] Jose Francisco Johnson MD Unavailable Livan Sharif MD Unavailable + Catherine Cm MD Unavailable + Sydnie Martinez RN Unavailable Unavailable Alfonso Renteria MD Unavailable [phone] Esha Grimm PA-C Primary Care Provider Cheng Todd PA-C Unavailable Radha Lomeli APRN INSPECTOR SET UP AND LAY OUT Unavailable [phone] Frankie Jelena Radha OD Unavailable Pao Joseph RN Unavailable Unavailable Esha Grimm PA-C Unavailable Valery Veronica PA-C Unavailable [phone] Rey Tay MD Unavailable Rocky Zepeda DO Unavailable Philip Dumont MD Unavailable [phone] Meredith Carrera PA-C Unavailable [phone] Neil Kent MD Unavailable Juan Pablo Emmanuel MD Unavailable Audrey Waite PA-C Unavailable [phone] Encounter Details Date Type Department Care Team (Late st Contact Info) Description 08/01/2020 [facility] [address] [address] Marija Edgar APRN INSPECTOR SET UP AND LAY OUT [address] [place] [address] Social History Tobacco Use Types Packs/Day [...] COVID-19? No / Unsure 07/30/2020 4:53 PM GOVERNMENT RELATIONS MANAGER documented as of this encounter Miscellaneous Notes * Telephone Encounter - Estephania Black RN - 08/01/2020 9:11 AM GOVERNMENT RELATIONS MANAGER Schedule patient for Zio Patch. Detailed message left on phone and through [employer] Estephania Black RN Flex RNMENT RELATIONS MANAGER * Telephone Encounter - Marija Edgar APRN CNP - 08/01/2020 8:46 AM GOVERNMENT RELATIONS MANAGER Please help patient schedule her zio patch. This order has been in place since 05/2020 and a new order was placed this week. RNMENT RELATIONS MANAGER documented in this encounter Plan of Treatment Upcoming Encounters Date Type Department Care Team (Late st Contact Info) Description 03/26/2024 11:20 AM CDT Office Visit [facility] Spine and Neurosurgery [address] [place] [address] [address] [place] [address] Ebnoy Cid APRN INSPECTOR SET UP AND LAY OUT [address] [place] [address] 03/27/2024 11:00 AM CDT Office Visit [facility] Keven German [address] [place] [phone] Jelena David, SONJA [address] [facility] [place] [address] 03/29/2024 3:30 PM CDT [facility] [address] [place] [address] [address] [place] [phone] Ingris Thompson, PT [facility] [address] [facility] [address] [place], [place] [address] 04/05/2024 2:10 PM CDT Therapy Visit [facility] [address] [place] [address] [address] [place] [phone] Ingris Thompson, PT [facility] 6 [facility] [address] [place], [place] [address] 04/19/2024 2:45 PM CDT Office Visit [address] [phone] Audrey Waite PA-C [address] [facility] [address], [facility] [address] [place], [place] [address] 05/08/2024 1:30 PM CDT Office Visit [facility] [address] [place] [address] Lauren Claudio PA-C [address] [place], [place] [phone] Esha Grimm PA-C [address] [place] [address] 06/21/2024 2:00 PM GOVERNMENT RELATIONS MANAGER Office Visit [facility] Neurology Clinics - [address], [address] [place] [address] [place] [address] [place], [place] [phone] Johnny Penn MD [address] [place], [place] [address] documented as of this encounter Visit Diagnoses Not on filedocumented in this encounter Additional Health Concerns Infection Onset Date Last Indicated Resolved Time Rule Out COVID-19 08/30/2020 08/30/2020 08/30/2020 5:05 PM GOVERNMENT RELATIONS MANAGER Rule Out COVID-19 09/24/2020 09/24/2020 09/24/2020 9:24 AM CDT Rule Out COVID-19 11/05/2020 11/05/2020 11/06/2020 1:09 PM CDT Rule Out COVID-19 05/11/2021 05/11/2021 05/13/2021 10:18 AM CDT Rule Out COVID-19 07/13/2021 07/13/2021 07/14/2021 3:04 PM GOVERNMENT RELATIONS MANAGER Rule Out COVID-19 07/18/2021 07/18/2021 07/20/2021 1:56 PM GOVERNMENT RELATIONS MANAGER COVID-19 07/18/2021 07/18/2021 08/08/2021 11:3 9 PM GOVERNMENT RELATIONS MANAGER Rule Out COVID-19 12/18/2021 12/18/2021 12/19/2021 11:34 AM CDT Rule Out COVID-19 02/24/2022 02/24/2022 02/25/2022 1:08 PM CDT Rule Out COVID-19 04/26/2022 04/26/2022 04/26/2022 6:47 AM CDT Rule Out COVID-19 05/17/2022 05/17/2022 05/17/2022 10:20 PM GOVERNMENT RELATIONS MANAGER Rule Out COVID-19 06/09/2022 06/09/2022 06/09/2022 9:35 AM GOVERNMENT RELATIONS MANAGER COVID-19 06/09/2022 06/09/2022 06/30/2022 11:4 1 PM GOVERNMENT RELATIONS MANAGER Rule Out COVID-19 11/10/2022 11/10/2022 11/11/2022 12:17 PM CDT Rule Out COVID-19 03/07/2023 03/07/202303/07/2023 1:20 PM CDT Rule Out COVID-19 12/26/2023 12/26/2023 12/26/2023 9:50 AM CDT Assessment Noted Time PHQ-9 Depression Total Score: 9 06/25/20 20 7:04 AM GOVERNMENT RELATIONS MANAGER documented as of this encounter Care Teams Executive Director Of Marketing Relationship Specialty Start Date End Date Marija Edgar APRN INSPECTOR SET UP AND LAY OUT PCP - General Nurse Practitioner 04/30/20 04/14/23 Esha Grimm PA-C [address] [place] [phone] PCP - General Family Medicine 05/04/23 Lita Oseguera Personal Advocate & Liaison (PAL) 02/28/20 03/27/23 Chanelle Mccann APRN CNM [address] [place] [address] [address] [place] [address] Assigned OBGYN Provider 05/02/2005/09 Kyara De La Fuente, RN Specialty Associate Entertainment Editor Neurology 06/04/20 03/05/21 Marija Edgar APRN INSPECTOR SET UP AND LAY OUT Assigned PCP 06/08/20 04/29/23 Mynor Broussard MD [address] [facility] 500 [place], [place] [address] Assigned Surgical Provider 06/01/20 11/28/21 Keisha Dotson MD [address] [place], [place] [address] Assigned Neuroscience Provider 06/04/20 04/01/23 NikiaAditi aguirrendra Financial Resource Worker 08/07/20 08/21/20 Stacey Briones, [facility] Lead Associate Entertainment Editor Primary Care - CC 08/11/2012/30 Lesley Moody, [facility] Community Health Worker 08/11/2010/01 Mary Mejia Financial Resource Worker 09/02/20 10/06/20 Lita Oseguera Personal Advocate & Liaison (PAL) Family Medicine 09/10/20 09/21/20 Galo Burrell MD Assigned Heart and Vascular Provider 10/05/20 04/02/22 Cristina Wood Financial Resource Worker 10/07/20 10/14/20 Lesley Moody, [facility] Community Health Worker 10/23/2012/30 Meredith Bedoya Financial Resource Worker 10/23/20 11/23/20 Cristina Wood Financial Resource Worker 02/09/21 02/09/21 Diana Desir, [facility] [address] [place], [place] [address] Pharmacist Pharmacist 04/17/21 Rain Galaviz PA-C [address] [place] [address] [address] [place] [place], [place] [phone] Physician Signs Sales Representative Dermatology 04/28/21 Summer Lara MD [address] [place] [address] Assigned OBGYN Provider 05/10/2105/23 Summer Lara MD [address] [place] [address] Assigned OBGYN Provider 05/31/21 2 Summer Lara MD [address] [place] [address] Assigned OBGYN Provider 05/24/2105/30 Tavia Wyatt MD [address] [place] [address] Dermatology 07/14/21 Johnny Murillo MD [address] [place] [address] Assigned Musculoskeletal Provider 08/30/21 03/17/22 Erica Farrell APRN INSPECTOR SET UP AND LAY OUT [address] [facility] [address] [place] [address] Nurse Practitioner Cardiovascular Disease 09/09/21 Teresita Bean, [facility] [address] [facility] [place] [address] Pharmacist Pharmacist 09/24/21 09/29/21 Tavia Wyatt MD Assigned Surgical Provider 11/29/21 05/07/22 [facility] [address] [place] [address] Assigned MTM Pharmacist 01/02/22 Rich Barrett MD [address] [facility] [address] [place] [address] Physician Ophthalmology 01/21/22 Neil Kent MD [address] [place] [address] Dermatology 02/24/22 Roney Story DPM [address] [employer] [facility] [address] [place], [place] [address] Assigned Musculoskeletal Provider 03/20/22 08/13/22 Erica Farrell APRN INSPECTOR SET UP AND LAY OUT [address] [place] [address] Assigned Heart and Vascular Provider 04/03/22 04/16/22 Diana Desir, [facility] [address] [place], [place] [address] Assigned MTM Pharmacist 04/07/22 Jelena David OD [address] [facility] [place] [address] Assigned Surgical Provider 05/08/22 10/08/22 Galo Burrell MD Assigned Heart and Vascular Provider 04/17/22 06/11/22 Livan Sharif MD [address] [place] [address] Cardiovascular Disease 05/14/22 Livan Sharif MD [address] [place] [address] Assigned Heart and Vascular Provider 06/12/22 07/23/22 Catherine Cm MD [address] [place] [address] Cardiovascular Disease 07/21/22 Valery Veronica PA-C [address] [place] [address] Physician Signs Sales Representative Dermatology 07/21/22 Catherine Cm MD [address] [facility] [address] [place] [address] Assigned Heart and Vascular Provider 07/24/22 11/05/22 Johnny Murillo MD [address] [place] [address] Assigned Musculoskeletal Provider 08/14/22 10/08/22 Brea Quinn APRN INSPECTOR SET UP AND LAY OUT [address] [place] [address] [phone] Nurse Practitioner Dermatology 09/21/22 Brea Quinn APRN INSPECTOR SET UP AND LAY OUT [address] [place] [address]252 Assigned Surgical Provider 10/09/22 [place] [address] [place] [address] Assigned Musculoskeletal Provider 10/09/22 Livan Sharif MD [address] [facility] [address] [place] [phone] Assigned Heart and Vascular Provider 11/06/22 11/12/22 Catherine Cm MD [address] [place] [address] Assigned Heart and Vascular Provider 11/13/22 05/27/23 Sydnie Martinez RN Personal Advocate & Liaison (PAL) Family Medicine 03/28/23 07/31/23 Alfonso Renteria MD [address] [facility] 200 [place] [address] Assigned Neuroscience Provider 04/02/23 Cheng Todd PA-C [address] [place] [address] [phone] Assigned PCP 04/30/23 07/15/23 Radha Lomeli APRN INSPECTOR SET UP AND LAY OUT [address] [place] [address] Assigned Heart and Vascular Provider 05/28/23 Jelena David OD [address] [facility] [place] [address] Ophthalmology 06/15/23 Pao Joseph RN Personal Advocate & Liaison (PAL) Nurse 08/01/23 11/07/23 Esha Grimm PA-C [address] [place] [address] Assigned PCP 07/16/23 Valery Veronica PA-C [address] [place] [address] Physician Signs Sales Representative Dermatology 09/19/23 Rey Tay MD [address] [place] [address] MD Gastroenterology 09/20/23 Rocky Zepeda DO [address] [place] [address] Physician Gastroenterology 09/20/23 Philip Dumont MD [address] [place] [address] Physician Ophthalmology 09/22/23 Meredith Carrera PA-C [address] [place] [address] Assigned Gastroenterology Provider 11/01/23 Neil Kent MD [address] [address] Dermatology 11/02/23 [place] [address] [address] Neurological Surgery 12/26/23 Audrey Waite PA-C 500 [place] [address] Physician Signs Sales Representative Dermatology 02/28/24 documented as of this encounter
--- OUTSIDE RECORDS SUMMARY | 2024-03-23 16:07 | XMS_ITS | Encounter Summary ---
Author Organization [facility] Address [address] [place] [address] Care Team Providers Care Bindery Helper Name Role Phone Lita Oseguera Unavailable Unavailable Marija Edgar APRN VICE PRESIDENT GLOBAL ADVERTISING SALES Primary Care Provider + Chanelle Mccann APRN CNM Unavailab le Kyara De La Fuente RN Unavailable [phone] Marija Edgar APRN VICE PRESIDENT [employer] SAL[employer] Unavailable Mynor Broussard MD Unavailable [phone] Keisha Dotson MD Unavailable Stacey Briones BOOT AND SHOE LABORER Unavailable Lesley Moody CHW Unavailable Mary Mejia Unavailable Unavailable Lita Oseguera Unavailable Unavailable Galo Burrell MD Unavailable Unavailable Cristina Wood Unavailable Lesley Moody CHW Unavailable [phone] Meredith Bedoya Unavailable Unavailable Cristina Wood Unavailable Diana Desir [facility] Unavailable [phone] Rain Galaviz PA-C Unavailable Summer Lara MD Unavailable [phone] Summer Lara MD Unavailable [phone] Summer Lara MD Unavailable + [phone] Tavia Wyatt MD Unavailable Unavailable SemJohnny mckeon MD Unavailable +1- Erica Farrell APRN VICE PRESIDENT [employer] ADVERT[employer] SAL[employer] Unavailable + Vikas Teresitafazal Watson H Unavailable Tavia Wyatt MD Unavailable Unavailable Diana Desir [facility] Unavailable [phone] Rich Barrett MD Unavailable [phone] Neil Kent MD Unavailable Roney Story DPM Unavailable [phone] Erica Farrell PATROL JUDGE VICE PRESIDENT [employer]ISING SALES Unavailable + Diana Desir [facility] Unavailable [phone] Tommy Davidmao Templetone OD Unavailable [phone] Galo Burrell MD Unavailable Unavailable Livan Sharif MD Unavailable + Livan Sharif MD Unavailable + Catherine Cm MD Unavailable + Valery Veronica PA-C Unavailable [phone] Catherine Cm MD Unavailable + Johnny Murillo MD Unavailable +[phone]- Brea Qiunn APRN VICE PRESIDENT [employer] Unavailable [phone] Brea Quinn PATROL JUDGE VICE PRESIDENT [employer] Unavailable [phone] Jose Francisco Johnson MD Unavailable Livan Sharif MD Unavailable + Catherine Cm MD Unavailable + Sydnie Martinez RN Unavailable Unavailable Alfonso Renteria MD Unavailable [phone] Esha Grimm PAUcheC Primary Care Provider [phone] Cheng Todd PA-C Unavailable [phone] Radha Lomeli APRN VICE PRESIDENT [employer] Unavailable [phone] Jelena David OD Unavailable Pao Joseph RN Unavailable Unavailable Esha GrimmC Unavailable [phone] Valery Veronica PA-C Unavailable [phone] Rey Tay MD Unavailable Rocky Zepeda DO Unavailable Philip Dumont MD Unavailable [phone] Meredith Carrera-C Unavailable [phone] Neil Kent MD Unavailable Juan Pablo Emmanuel MD Unavailable [phone] Audrey Waite PA-C Unavailable [phone] Encounter Details Date Type Department Care Team (Late st Contact Info) Description 09/02/2020 [facility] [place] [facility] Care Coordination [address] [place] [phone] Mary Mejia Social History Tobacco Use [...] do you attend chur or rastafarian services? More than 4 times per year [...] Answer Date Recorded PHQ-2 Score 0 08/12/2020 [facility] [place] [facility] Occupat ional Health - Occupational Stress [...] in a fpc (including now)? No 08/11/2020 Education Answer Date [...] COVID-19? No / Unsure 09/05/2020 2:50 PM ART PSYCHOTHERAPIST OR THERAPIST documented as of this encounter Plan of Treatment Upcoming Encounters Date Type Department Care Team (Late st Contact Info) Description 03/26/2024 11:20 AM CDT Office Visit [facility] Spine and Neurosurgery [address] [place] [phone] Ebony Cid, PATROL JUDGE VICE PRESIDENT [employer] [address] [place] [address] 03/27/2024 11:00 AM CDT Office Visit [facility] [address] [place] [phone] Frankie Jelena Garcia, [place] [address] [facility] [place] [address] 03/29/2024 3:30 PM CDT Therapy Visit [facility] [address] [facility] [address] [place] [phone] Ingris Thompson, PT [facility] [address] [place] [address] [address] [place] [address] 04/05/2024 2:10 PM CDT Therapy Visit [facility] [address] [facility] [address] [place] [phone] Ingris Thompson, PT [facility] [address] [place] [address] [address] [place] [address] 04/19/2024 2:45 PM CDT Office Visit [address] [phone] Audrey Waite PA-C [address] [facility] [address], [facility] [address] [place] [address] 05/08/2024 1:30 PM CDT Office Visit [facility] [address] [place] [phone] Lauren Claudio PA-C [address] [place], [place] [phone] Esha Grimm PA-C [address] [place] [phone] 06/21/2024 2:00 PM ART PSYCHOTHERAPIST OR THERAPIST Office Visit [facility] Neurology [facility] [address] [facility], [address] [place] [phone] [place] [address] [place], [place] [address] Johnny Penn MD [address] [place] [address] documented as of this encounter Visit Diagnoses Not on filedocumented in this encounter Additional Health Concerns Infection Onset Date Last Indicated Resolved Time Rule Out COVID-19 09/24/2020 09/24/2020 09/24/2020 9:24 AM CDT Rule Out COVID-19 11/05/2020 11/05/2020 11/06/2020 1:09 PM CDT Rule Out COVID-19 05/11/2021 05/11/2021 05/13/2021 10:18 AM CDT Rule Out COVID-19 07/13/2021 07/13/2021 07/14/2021 3:04 PM ART PSYCHOTHERAPIST OR THERAPIST Rule Out COVID-19 07/18/2021 07/18/2021 07/20/2021 1:56 PM ART PSYCHOTHERAPIST OR THERAPIST COVID-19 07/18/2021 07/18/2021 08/08/2021 11:3 9 PM ART PSYCHOTHERAPIST OR THERAPIST Rule Out COVID-19 12/18/2021 12/18/2021 12/19/2021 11:34 AM CDT Rule Out COVID-19 02/24/2022 02/24/2022 02/25/2022 1:08 PM CDT Rule Out COVID-19 04/26/2022 04/26/2022 04/26/2022 6:47 AM CDT Rule Out COVID-19 05/17/2022 05/17/2022 05/17/2022 10:20 PM ART PSYCHOTHERAPIST OR THERAPIST Rule Out COVID-19 06/09/2022 06/09/2022 06/09/2022 9:35 AM ART PSYCHOTHERAPIST OR THERAPIST COVID-19 06/09/2022 06/09/2022 06/30/2022 11:4 1 PM ART PSYCHOTHERAPIST OR THERAPIST Rule Out COVID-19 11/10/2022 11/10/2022 11/11/2022 12:17 PM CDT Rule Out COVID-19 03/07/2023 03/07/2023 03/07/2023 1:20 PM CDT Rule Out COVID-19 12/26/2023 12/26/2023 12/26/2023 9:50 AM CDT Assessment Noted Time PHQ-9 Depression Total Score: 9 06/25/20 20 7:04 AM ART PSYCHOTHERAPIST OR THERAPIST documented as of this encounter Care Teams Bindery Helper Relationship Specialty Start Date End Date Marija Edgar APRN VICE PRESIDENT [employer] PCP - General Nurse Practitioner 04/30/20 04/14/23 Esha Grimm PA-C [address] [place] [phone] PCP - General Family Medicine 05/04/23 Lita Oseguera Personal Advocate & Liaison (PAL) 02/28/20 03/27/23 Chanelle Mccann APRN CNM [address] [address] Assigned OBGYN Provider 05/02/2005/09 Kyara De La Fuente, RN Specialty Cam Milling Machine Operator Neurology 06/04/20 03/05/21 Marija Edgar APRN VICE PRESIDENT [employer] Assigned PCP 06/08/20 04/29/23 Mynor Broussard MD [address] [place] [address] Assigned Surgical Provider 06/01/20 11/28/21 Keisha Dotson MD [address] [place] [address] Assigned Neuroscience Provider 06/04/20 04/01/23 Stacey Briones, [facility] Lead Cam Milling Machine Operator Primary Care - CC 08/11/2012/30 Lesley Moody, [facility] Community Health Worker 08/11/2010/01 Mary Mejia Financial Resource Worker 09/02/20 10/06/20 Lita Oseguera Personal Advocate & Liaison (PAL) Family Medicine 09/10/20 09/21/20 Galo Burrell MD Assigned Heart and Vascular Provider 10/05/20 04/02/22 Cristina Wood Financial Resource Worker 10/07/20 10/14/20 Lesley Moody, [facility] Community Health Worker 10/23/2012/30 Meredith Bedoya Financial Resource Worker 10/23/20 11/23/20 Cristina Wood Financial Resource Worker 02/09/21 02/09/21 Diana Desir, [facility] [address] [place] [address] Pharmacist Pharmacist 04/17/21 Rain Galaviz PA-C [address] [place] [address] [address] [place] [address] Physician Sales Engineering Manager Dermatology 04/28/21 Summer Lara MD [address] [place], [place] [address] Assigned OBGYN Provider 05/10/2105/23 Summer Lara MD [address] [place], [place] [address] Assigned OBGYN Provider 05/31/21 Summer Lara MD [address] [place], [place] [address] Assigned OBGYN Provider 05/24/2105/30 Tavia Wyatt MD [address] [place] [address] Dermatology 07/14/21 Johnny Murillo MD [address] [place] [address] Assigned Musculoskeletal Provider 08/30/21 03/17/22 Erica Farrell APRN VICE PRESIDENT [employer]VERT[employer] SALES [address] [facility] [address] [place] [address] Nurse Practitioner Cardiovascular Disease 09/09/21 Teresita Bean [facility] [address] [place] [address] Pharmacist Pharmacist 09/24/21 09/29/21 Tavia Wyatt MD Assigned Surgical Provider 11/29/21 05/07/22 Diana Desir, [facility] [address] [place] [address] Assigned MTM Pharmacist 01/02/22 Rich Barrett MD [address] [phone] Physician Ophthalmology 01/21/22 Neil Kent MD [address] [place], [place] 0[address] Dermatology 02/24/22 Roney Story DPM [address] [facility] [address] [place] [address] Assigned Musculoskeletal Provider 03/20/22 08/13/22 Erica Farrell APRN VICE PRESIDENT [employer] [address] [place] [address] Assigned Heart and Vascular Provider 04/03/22 04/16/22 Diana Desir [facility] [address] [place] [address] Assigned MTM Pharmacist 04/07/22 Jelena David OD [address] [facility] [address] Assigned Surgical Provider 05/08/22 10/08/22 Galo Burrell MD Assigned Heart and Vascular Provider 04/17/22 06/11/22 Livan Sharif MD [address] [facility] [address] [place] [address] Cardiovascular Disease 05/14/22 Livan Sharif MD [address], [facility] [address] [place] [address] Assigned Heart and Vascular Provider 06/12/22 07/23/22 Catherine Cm MD [address] [facility] [place] [phone] Cardiovascular Disease 07/21/22 Valery Veronica, PAUcheC [address] [place] [address] 303865 Physician Sales Engineering Manager Dermatology 07/21/22 Catherine Cm MD [address] [facility] [place] [address] Assigned Heart and Vascular Provider 07/24/22 11/05/22 Johnny Murillo MD [facility] [address] 561224 Assigned Musculoskeletal Provider 08/14/22 10/08/22 Brea Quinn APRN VICE PRESIDENT [employer] [address] [place] [address] [phone] Nurse Practitioner Dermatology 09/21/22 Brea Quinn APRN VICE PRESIDENT [employer] [address] [place] [address] [place] [id number] Assigned Surgical Provider 10/09/22 [place] [address] [address] 662167 Assigned Musculoskeletal Provider 10/09/22 Livan Sharif MD [address], [facility] [address] [place] [address] Assigned Heart and Vascular Provider 11/06/22 11/12/22 Catherine Cm MD [address] [place], [place] 172605 Assigned Heart and Vascular Provider 11/13/22 05/27/23 Sydnie Martinez, RN Personal Advocate & Liaison (PAL) Family Medicine 03/28/23 07/31/23 Alfonso Renteria MD [address] [facility] [address] [place], [place] [address] Assigned Neuroscience Provider 04/02/23 Cheng Todd PA-C [address] [place] [address] [phone] Assigned PCP 04/30/23 07/15/23 Radha Lomeli, ARLENE VICE PRESIDENT [employer] SALES [address] [place] [address] Assigned Heart and Vascular Provider 05/28/23 Jelena David OD [address] [place] [address] Ophthalmology 06/15/23 Pao Joseph, VJ Personal Advocate & Liaison (PAL) Nurse 08/01/23 11/07/23 Esha Grimm PA-C [address] [place] [phone] Assigned PCP 07/16/23 Valery Veronica PA-C [address] [place], [place] 7250[address] Physician Sales Engineering Manager Dermatology 09/19/23 Rey Tay MD [address] [place] [address] MD Gastroenterology 09/20/23 Rocky Zepeda DO [address] [place], [place] 9267[address] Physician Gastroenterology 09/20/23 Philip Dumont MD [address] [place] [address] [id number] Physician Ophthalmology 09/22/23 Meredith Carrera PA-C [address] [place] [address] Assigned Gastroenterology Provider 11/01/23 Neil Kent MD [address] [address] Dermatology 11/02/23 [place] [address] [place] [address] Neurological Surgery 12/26/23 Audrey Waite PA-C [address] [place] [address] Physician Sales Engineering Manager Dermatology 02/28/24 documented as of this encounter
--- OUTSIDE RECORDS SUMMARY | 2024-03-23 16:07 | XMS_ITS | Encounter Summary ---
Author Organization [facility] Address [address] [place] [address] Care Team Providers Care Commercial Intern Name Role Phone Lita Oseguera Unavailable Unavailable Marija Edgar APRN POSTBED STITCHER Primary Care Provider + Chanelle Mccann APRN CNM Unavailab le Kyara De La Fuente RN Unavailable [phone] Marija Edgar APRN POSTBED STITCHER Unavailable [phone] Mynor Broussard MD Unavailable [phone] Keisha Dotson MD Unavailable Stacey Briones PRODUCT EVANGELIST Unavailable Lesley Moody CHW Unavailable Mary Mejia Unavailable Unavailable Lita Oseguera Unavailable Unavailable Galo Burrell MD Unavailable Unavailable Cristina Wood Unavailable Lesley Moody CHW Unavailable Meredith Bedoya Unavailable Unavailable Cristina Wood Unavailable Diana Desir [facility] Unavailable Rain Galaviz PA-C Unavailable Summer Lara MD Unavailable [phone] Summer Lara MD Unavailable [phone] Summer Lara MD Unavailable + [phone] Tavia Wyatt MD Unavailable Unavailable SemJohnny mckeon MD Unavailable +1- Erica Farrell APRN POSTBED STITCHER Unavailable + Vikas Teresitafazal Watson H Unavailable Tavia Wyatt MD Unavailable Unavailable Diana Desir [facility] Unavailable [phone] Rich Barrett MD Unavailable [phone] Neil Kent MD Unavailable Roney Story DPM Unavailable [phone] Erica Farrell TRANSVERSE ABDOMINAL MUSCLE SURGEON POSTBED STITCHER Unavailable + Diana Desir [facility] Unavailable [phone] Tommy Davidmao Templetone OD Unavailable [phone] Galo Burrell MD Unavailable Unavailable Livan Sharif MD Unavailable + Livan Sharif MD Unavailable + Catherine Cm MD Unavailable + Valery Veronica PA-C Unavailable [phone] Catherine Cm MD Unavailable + Johnny Murillo MD Unavailable +1- Brea Quinn APRN POSTBED STITCHER Unavailable [phone] Brea Quinn TRANSVERSE ABDOMINAL MUSCLE SURGEON POSTBED STITCHER Unavailable [phone] Jose Francisco Johnson MD Unavailable Livan Sharif MD Unavailable + Catherine Cm MD Unavailable + Sydnie Martinez RN Unavailable Unavailable Alfonso Renteria MD Unavailable [phone] Esha Grimm PAUcheC Primary Care Provider Cheng Todd PA-C Unavailable Radha Lomeli APRN POSTBED STITCHER Unavailable FrankieJelena SONJA Unavailable Pao Joseph RN Unavailable Unavailable Esha GrimmC Unavailable [phone] Valery Veronica PA-C Unavailable Rey Tay MD Unavailable Rocky Zepeda DO Unavailable Philip Dumont MD Unavailable Meredith Carrera PA-C Unavailable Neil Kent MD Unavailable Juan Pablo Emmanuel MD Unavailable Audrey Waite PA-C Unavailable Encounter Details Date Type Department Care Team (Late st Contact Info) Description 08/24/2020 MyC Medical Advice [address] [phone] Marija Edgar APRN POSTBED STITCHER [address] [place] [address] Social History Tobacco Use Types [...] do you attend chur or restorationist services? More than 4 times per year [...] Answer Date Recorded PHQ-2 Score 0 08/12/2020 [facility] [...] COVID-19? No / Unsure 08/20/2020 12:47 PM TUMBLING MACHINE OPERATOR documented as of this encounter Miscellaneous Notes * Telephone Encounter - Marija Edgar APRN POSTBED STITCHER - 08/25/2020 11:47 AM TUMBLING MACHINE OPERATOR Replied via [employer] Marija Edgar APRN POSTBED STITCHER on 08/25/2020 at 11:51 AM LING MACHINE OPERATOR documented in this encounter Plan of Treatment Upcoming Encounters Date Type Department Care Team (Late st Contact Info) Description 03/26/2024 11:20 AM CDT Office Visit [facility] Spine and Neurosurgery [address] [facility] [address] [place] [address] Ebony Cid APRN POSTBED STITCHER [address] [place] [address] 03/27/2024 11:00 AM CDT Office Visit [facility] [address] [facility] 160 [place] [phone] Jelena David, [address] [facility] [place] [address] 03/29/2024 3:30 PM CDT Therapy Visit [facility] [address] [place] [address] [address] [place] [phone] Ingris Thompson, PT [facility] [address] [place] [address] 04/05/2024 2:10 PM CDT Therapy Visit [facility] [address] [place] [address] [address] [place] [phone] Ingris Thompson, PT [facility] [address] [place] [address] 04/19/2024 2:45 PM CDT Office Visit [facility] [address] [place] [phone] Audrey Waite PA-C [address] [place] [address] B385, [facility] [address] [place], [place] [address] 05/08/2024 1:30 PM CDT Office Visit [facility] [address] [place] [phone] Lauren Claudio PA-C [address] [place] [address] Esha Grimm PA-C [address] [place] [address] 06/21/2024 2:00 PM TUMBLING MACHINE OPERATOR Office Visit [facility] Neurology [address], [address] [place] [phone] [place] [address] [place], [place] [phone] Johnny Penn MD [address] [place], [place] [phone] documented as of this encounter Visit Diagnoses Not on filedocumented in this encounter Additional Health Concerns Infection Onset Date Last Indicated Resolved Time Rule Out COVID-19 08/30/2020 08/30/2020 08/30/2020 5:05 PM TUMBLING MACHINE OPERATOR Rule Out COVID-19 09/24/2020 09/24/2020 09/24/2020 9:24 AM CDT Rule Out COVID-19 11/05/2020 11/05/2020 11/06/2020 1:09 PM CDT Rule Out COVID-19 05/11/2021 05/11/2021 05/13/2021 10:18 AM CDT Rule Out COVID-19 07/13/2021 07/13/2021 07/14/2021 3:04 PM TUMBLING MACHINE OPERATOR Rule Out COVID-19 07/18/2021 07/18/2021 07/20/2021 1:56 PM TUMBLING MACHINE OPERATOR COVID-19 07/18/2021 07/18/2021 08/08/2021 11:3 9 PM TUMBLING MACHINE OPERATOR Rule Out COVID-19 12/18/2021 12/18/2021 12/19/2021 11:34 AM CDT Rule Out COVID-19 02/24/2022 02/24/2022 02/25/2022 1:08 PM CDT Rule Out COVID-19 04/26/2022 04/26/2022 04/26/2022 6:47 AM CDT Rule Out COVID-19 05/17/2022 05/17/2022 05/17/2022 10:20 PM TUMBLING MACHINE OPERATOR Rule Out COVID-19 06/09/2022 06/09/2022 06/09/2022 9:35 AM TUMBLING MACHINE OPERATOR COVID-19 06/09/2022 06/09/2022 06/30/2022 11:4 1 PM TUMBLING MACHINE OPERATOR Rule Out COVID-19 11/10/2022 11/10/2022 11/11/2022 12:17 PM CDT Rule Out COVID-19 03/07/2023 03/07/2023 03/07/2023 1:20 PM CDT Rule Out COVID-19 12/26/2023 12/26/2023 12/26/2023 9:50 AM CDT Assessment Noted Time PHQ-9 Depression Total Score: 9 06/25/20 20 7:04 AM TUMBLING MACHINE OPERATOR documented as of this encounter Care Teams Commercial Intern Relationship Specialty Start Date End Date Marija Edgar APRN CNP PCP - General Nurse Practitioner 04/30/20 04/14/23 Esha Grimm PA-C [address] [place] [address] PCP - General Family Medicine 05/04/23 Lita Oseguera Personal Advocate & Liaison (PAL) 02/28/20 03/27/23 Chanelle Mccann APRN CNM [address] [address] [facility] [address] [place], [place] [address] Assigned OBGYN Provider 05/02/2005/09 Kyara De La Fuente, RN Specialty Personnel Placement Specialist Neurology 06/04/20 03/05/21 Marija Edgar APRN POSTBED STITCHER Assigned PCP 06/08/20 04/29/23 Mynor Broussard MD [address] [facility] 500 [place], [place] 47[address] Assigned Surgical Provider 06/01/20 11/28/21 Keisha Dotson MD 9 [place], [place] [address] Assigned Neuroscience Provider 06/04/20 04/01/23 Stacey Briones, [facility] Lead Personnel Placement Specialist Primary Care - CC 08/11/2012/30 Lesley [...] Resource Worker 02/09/21 02/09/21 Diana Desir, [facility] [address] [place] [address] Pharmacist Pharmacist 04/17/21 Rain Galaviz PA-C [address] [facility] [place] [address] Physician Director Of Vocational Guidance Dermatology 04/28/21 Summer Lara MD [address] [place] [address] Assigned OBGYN Provider 05/10/2105/23 Summer Lara MD [address] [place] [address] 182844 Assigned OBGYN Provider 05/31/21 Summer Lara MD [address] [place] [address] 081014 Assigned OBGYN Provider 05/24/2105/30 Tavia Wyatt MD [address] [place] [address] Dermatology 07/14/21 Johnny Murillo MD [address] [facility] [address] [place] [address] Assigned Musculoskeletal Provider 08/30/21 03/17/22 Erica Farrell APRN POSTBED STITCHER [id number] [place] [address] Nurse Practitioner Cardiovascular Disease 09/09/21 Teresita Bean, [facility] [address] [facility] [place] [address] Pharmacist Pharmacist 09/24/21 09/29/21 Tavia Wyatt MD Assigned Surgical Provider 11/29/21 05/07/22 Diana Desir, [facility] [address] [place] [address] Assigned MTM Pharmacist 01/02/22 Rich Barrett MD [address] 7[address] Physician Ophthalmology 01/21/22 Neil Kent MD [address] [place], [place] [address] Dermatology 02/24/22 Roney Story DPM [address] [facility] [address] [place] [address] Assigned Musculoskeletal Provider 03/20/22 08/13/22 Erica Farrell APRN POSTBED STITCHER [address] [place] [address] Assigned Heart and Vascular Provider 04/03/22 04/16/22 Diana Desir, [facility] [address] [place] [address] Assigned MTM Pharmacist 04/07/22 Frankie Jelena GarciaSONJA [address] [facility] [place] [address] Assigned Surgical Provider 05/08/22 10/08/22 Galo Burrell MD Assigned Heart and Vascular Provider 04/17/22 06/11/22 Livan Sharif MD [address] [place], [place] [address] Cardiovascular Disease 05/14/22 Livan Sharif MD [address] [place] [address] Assigned Heart and Vascular Provider 06/12/22 07/23/22 Catherine Cm MD [address] [place], [place] [address] Cardiovascular Disease 07/21/22 Valery Veronica, PA-C [address] [place] [address] Physician Director Of Vocational Guidance Dermatology 07/21/22 Catherine Cm MD [address] [place] [address] Assigned Heart and Vascular Provider 07/24/22 11/05/22 Johnny Murillo MD [address] [address] Assigned Musculoskeletal Provider 08/14/22 10/08/22 Brea Quinn APRN POSTBED STITCHER [address] [facility] [place] [address] Nurse Practitioner Dermatology 09/21/22 Brea Quinn APRN POSTBED STITCHER [address] [facility] [place] [address] Assigned Surgical Provider 10/09/22 [place] [address] [place] [address] Assigned Musculoskeletal Provider 10/09/22 Livan Sharif MD [address], [facility] [address] [place] [address]37[address] Assigned Heart and Vascular Provider 11/06/22 11/12/22 Catherine Cm MD [address] [facility] [address] [place] [address] Assigned Heart and Vascular Provider 11/13/22 05/27/23 Sydnie Martinez RN Personal Advocate & Liaison (PAL) Family Medicine 03/28/23 07/31/23 Alfonso Renteria MD [address] [facility] 200 [place] [address] Assigned Neuroscience Provider 04/02/23 Cheng Todd PA-C [address] [place] [address] Assigned PCP 04/30/23 07/15/23 Radha Lomeli APRN POSTBED STITCHER [address] [place] [address] Assigned Heart and Vascular Provider 05/28/23 Jelena David OD [address] [facility] [place] [address] MD Ophthalmology 06/15/23 Pao Joseph, VJ Personal Advocate & Liaison (PAL) Nurse 08/01/23 11/07/23 Esha Grimm PA-C [address] [place] [phone] Assigned PCP 07/16/23 Valery Veronica PA-C [address] [place] [address] 024875 Physician Director Of Vocational Guidance Dermatology 09/19/23 Rey Tay MD [address] [place] [address] [phone] Gastroenterology 09/20/23 Rocky Zepeda DO [address] [place] [address] 777435 Physician Gastroenterology 09/20/23 Philip Dumont MD [address] [place] [address] 422925 Physician Ophthalmology 09/22/23 Meredith Carrera PA-C [address] [place] [address] 215145 Assigned Gastroenterology Provider 11/01/23 Neil Kent MD [address] [place] [address] [phone] Dermatology 11/02/23 [place] [address] [place] [place] [address] Neurological Surgery 12/26/23 Audrey Waite, PA-C 500 [place] [address] Physician Director Of Vocational Guidance Dermatology 02/28/24 documented as of this encounter
--- OUTSIDE RECORDS SUMMARY | 2024-03-23 16:07 | XMS_ITS | Encounter Summary ---
Author Organization [facility] Address [address] [place] [address] Care Team Providers Care Accounting Machine Servicer Name Role Phone Lita Oseguera Unavailable Unavailable Marija Edgar APRN FRUIT HARVESTER Primary Care Provider + Chanelle Mccann AUTOMOBILE BODY REPAIR SUPERVISOR CNM Unavailab le Kyara De La Fuente RN Unavailable [phone] Marija Edgar APRN FRUIT HARVESTER Unavailable Mynor Broussard MD Unavailable [phone] Keisha Dotson MD Unavailable [phone] Mary Mejia Unavailable Unavailable Stacey Briones FIELD ARTILLERY OPERATIONS MAN Unavailable Lesley Moody CHW Unavailable Mary Mejia Unavailable Unavailable Lita Oseguera Unavailable Unavailable Galo Burrell MD Unavailable Unavailable Cristina Wood Unavailable Lesley Moody CHW Unavailable [phone] Meredith Bedoya Unavailable Unavailable Cristina Wood Unavailable Diana Desir [facility] Unavailable [phone] Ruhland, Rain Lena PA-C Unavailable Summer Lara MD Unavailable [phone] Summer Lara MD Unavailable +[phone] Summer Lara MD Unavailable +[phone] Tavia Wyatt MD Unavailable Unavailable SemJohnny mckeon MD Unavailable +[phone] Erica Farrell APRN FRUIT HARVESTER Unavailable + Vikas Teresita Watson H Unavailable Tavia Wyatt MD Unavailable Unavailable Diana Desir [facility] Unavailable [phone] Rich Barrett MD Unavailable [phone] Neil Kent MD Unavailable Roney Story DPM Unavailable [phone] Erica Farrell APRN FRUIT HARVESTER Unavailable + Diana Desir [facility] Unavailable [phone] Jelena David Radha OD Unavailable Galo Burrell MD Unavailable Unavailable Livan Sharif MD Unavailable + Livan Sharif MD Unavailable + Catherine Cm MD Unavailable + Valery Veronica PA-C Unavailable [phone] Catherine Cm MD Unavailable + Johnny Murillo MD Unavailable +[phone] Brea Quinn APRN FRUIT HARVESTER Unavailable [phone] Brea Quinn AUTOMOBILE BODY REPAIR SUPERVISOR FRUIT HARVESTER Unavailable [phone] Jose Francisco Johnson MD Unavailable Livan Sharif MD Unavailable + Catherine Cm MD Unavailable + Sydnie Martinez RN Unavailable Unavailable Alfonso Renteria MD Unavailable [phone] Esha Grimm PA-C Primary Care Provider Cheng Todd PA-C Unavailable [phone] Radha Lomeli APRN FRUIT HARVESTER Unavailable [phone] Frankie Jelena Templetone OD Unavailable Pao Joseph RN Unavailable Unavailable Esha GrimmC Unavailable [phone] Valery Veronica PA-C Unavailable [phone] Rey Tay MD Unavailable Rocky Zepeda DO Unavailable Philip Dumont MD Unavailable [phone] Meredith Carrera-C Unavailable [phone] Neil Kent MD Unavailable Juan Pablo Emmanuel MD Unavailable [phone] Audrey Waite-C Unavailable [phone] Encounter Details Date Type Department Care Team (Late st Contact Info) Description 08/07/2020 [facility] Medical Advice [facility] Care Coordination [facility] [place] [address] Lesley Moody, [facility] Social History Tobacco Use Types Packs/Day [...] week 08/07/2020 How often do you attend [facility] or anabaptism services? More than 4 times per year [...] Answer Date Recorded PHQ-2 Score 3 06/24/2020 [facility] of Occupat ional Health - Occupational Stress [...] COVID-19? No / Unsure 08/06/2020 2:03 PM MULTIPLEX OPERATOR documented as of this encounter Plan of Treatment Upcoming Encounters Date Type Department Care Team (Taylor munoz Contact Info) Description 03/26/2024 11:20 AM CDT Office Visit [facility] Spine and Neurosurgery [address] [place] [phone] Ebony Cid, AUTOMOBILE BODY REPAIR SUPERVISOR FRUIT HARVESTER [address] [place] [address] 03/27/2024 11:00 AM CDT Office Visit [facility] [place] [address] [place] [phone] J[place] David, [place] [address] [facility] [place] [address] 03/29/2024 3:30 PM CDT Therapy Visit [facility] [address] [place] [address] [address] [place] [phone] Ingris Thompson, PT [facility] [address] [place] [address] [address] [place], [place] [address] 04/05/2024 2:10 PM CDT Therapy Visit [facility] [address] [place] [address] [address] [place] [phone] Ingris Thompson, PT [facility] [address] [place] [address] 106 [place] [address] 04/19/2024 2:45 PM CDT Office Visit [facility] [address] [place] [phone] Audrey Waite PA-C [address] [facility] [address], [facility] [address] [place] [address] 05/08/2024 1:30 PM CDT Office Visit [facility] [address] [place] [phone] Lauren Claudio PA-C [address] [place] [address] Esha Grimm PA-C [address] [facility] [place] [place] [phone] 06/21/2024 2:00 PM MULTIPLEX OPERATOR Office Visit [facility] Neurology [facility] [place] [address], [address] [place] [address] [place] [address] [place] [address] Johnny Penn MD [address] [place] [address] documented as of this encounter Visit Diagnoses Not on filedocumented in this encounter Additional Health Concerns Infection Onset Date Last Indicated Resolved Time Rule Out COVID-19 08/30/2020 08/30/2020 08/30/2020 5:05 PM MULTIPLEX OPERATOR Rule Out COVID-19 09/24/2020 09/24/2020 09/24/2020 9:24 AM CDT Rule Out COVID-19 11/05/2020 11/05/2020 11/06/2020 1:09 PM CDT Rule Out COVID-19 05/11/2021 05/11/2021 05/13/2021 10:18 AM CDT Rule Out COVID-19 07/13/2021 07/13/2021 07/14/2021 3:04 PM MULTIPLEX OPERATOR Rule Out COVID-19 07/18/2021 07/18/2021 07/20/2021 1:56 PM MULTIPLEX OPERATOR COVID-19 07/18/2021 07/18/2021 08/08/2021 11:3 9 PM MULTIPLEX OPERATOR Rule Out COVID-19 12/18/2021 12/18/2021 12/19/2021 11:34 AM CDT Rule Out COVID-19 02/24/2022 02/24/2022 02/25/2022 1:08 PM CDT Rule Out COVID-19 04/26/2022 04/26/2022 04/26/2022 6:47 AM CDT Rule Out COVID-19 05/17/2022 05/17/2022 05/17/2022 10:20 PM MULTIPLEX OPERATOR Rule Out COVID-19 06/09/2022 06/09/2022 06/09/2022 9:35 AM MULTIPLEX OPERATOR COVID-19 06/09/2022 06/09/2022 06/30/2022 11:4 1 PM MULTIPLEX OPERATOR Rule Out COVID-19 11/10/2022 11/10/2022 11/11/2022 12:17 PM CDT Rule Out COVID-19 03/07/2023 03/07/2023 03/07/2023 1:20 PM CDT Rule Out COVID-19 12/26/2023 12/26/2023 12/26/2023 9:50 AM CDT Assessment Noted Time PHQ-9 Depression Total Score: 9 06/25/20 20 7:04 AM MULTIPLEX OPERATOR documented as of this encounter Care Teams Accounting Machine Servicer Relationship Specialty Start Date End Date Marija Edgar APRN FRUIT HARVESTER PCP - General Nurse Practitioner 04/30/20 04/14/23 Esha Grimm PA-C [address] [place] [phone] PCP - General Family Medicine 05/04/23 Lita Oseguera Personal Advocate & Liaison (PAL) 02/28/20 03/27/23 Chanelle Mccann APRN CNM [address] [address] Assigned OBGYN Provider 05/02/2005/09 Kyara De La Fuente, VJ Specialty Oyster Floater Neurology 06/04/20 03/05/21 Marija Edgar APRN FRUIT HARVESTER Assigned PCP 06/08/20 04/29/23 Mynor Broussard MD [address] [address] Assigned Surgical Provider 06/01/20 11/28/21 Keisha Dotson MD [address] [place], [place] [address]2815 Assigned Neuroscience Provider 06/04/20 04/01/23 Mary Mejia Financial Resource Worker 08/07/20 08/21/20 Stacey Briones, [facility] Lead Oyster Floater Primary Care - CC 08/11/2012/30 Lesley Moody, [facility] Community Health Worker 08/11/2010/01 Mary Mejia Financial Resource Worker 09/02/20 10/06/20 Lita Oseguera Personal Advocate & Liaison (PAL) Family Medicine 09/10/20 09/21/20 Galo Burrell MD Assigned Heart and Vascular Provider 10/05/20 04/02/22 Cristina Wood Financial Resource Worker 10/07/20 10/14/20 Lesley Moody, [facility] Community Health Worker 10/23/2012/30 Meredith Bedoya Financial Resource Worker 10/23/20 11/23/20 Cristina Wood Financial Resource Worker 02/09/21 02/09/21 Diana Desir, [facility] [address] [place], [place] [phone] Pharmacist Pharmacist 04/17/21 Rain Galaviz PA-C [address] [place] [address] [address] [facility] [facility] [place] [address] Physician Biomedical Technician Dermatology 04/28/21 Summer Lara MD [address] [place] [address] Assigned OBGYN Provider 05/10/2105/23 Summer Lara MD [address] [place] [address] Assigned OBGYN Provider 05/31/21 2 Summer Lara MD [address] [place] [address] Assigned OBGYN Provider 05/24/2105/30 Tavia Wyatt MD [address] [place] [address] Dermatology 07/14/21 Johnny Murillo MD [address] [facility] [address] [place] [address] Assigned Musculoskeletal Provider 08/30/21 03/17/22 Erica Farrell APRN FRUIT HARVESTER [address] [facility] [address] [place] [address] Nurse Practitioner Cardiovascular Disease 09/09/21 Teresita Bean, [facility] [address] [place] [address] Pharmacist Pharmacist 09/24/21 09/29/21 Tavia Wyatt MD Assigned Surgical Provider 11/29/21 05/07/22 Diana Desir, [facility] [address] [place] [address] Assigned MTM Pharmacist 01/02/22 Rich Barrett MD [address] [place] [address] Physician Ophthalmology 01/21/22 Neil Kent MD [address] [place] [address] Dermatology 02/24/22 Roney Story DPM [address] [facility] [address] [place] [address] Assigned Musculoskeletal Provider 03/20/22 08/13/22 Erica Farrell APRN FRUIT HARVESTER [address] [place] [address] Assigned Heart and Vascular Provider 04/03/22 04/16/22 Diana Desir, [facility] [address] [place] [address] Assigned MTM Pharmacist 04/07/22 Jelena David OD [address] [place] [address] [place] [address] Assigned Surgical Provider 05/08/22 10/08/22 Galo Burrell MD Assigned Heart and Vascular Provider 04/17/22 06/11/22 Livan Sharif MD [address] [place] [address] [place] [phone] Cardiovascular Disease 05/14/22 Livan Sharif MD [address] [place] [address] [place] [phone] Assigned Heart and Vascular Provider 06/12/22 07/23/22 Catherine Cm MD [address] [place] [address] [place] [phone] Cardiovascular Disease 07/21/22 Valery Veronica, PA-C [address] [place] [address] 242785 Physician Biomedical Technician Dermatology 07/21/22 Catherine Cm MD [address] [facility] [address] [place] 104665 Assigned Heart and Vascular Provider 07/24/22 11/05/22 Johnny Murillo MD [address] [place] [address] 274674 Assigned Musculoskeletal Provider 08/14/22 10/08/22 Brea Quinn APRN FRUIT HARVESTER [address] [place] [address] [phone] Nurse Practitioner Dermatology 09/21/22 Brea Quinn APRN FRUIT HARVESTER [address] [place] [address] [place] [phone] Assigned Surgical Provider 10/09/22 [place] [address] [facility] [address] [place] [address] Assigned Musculoskeletal Provider 10/09/22 Livan Sharif MD [address], [facility] [address] [place] [address] Assigned Heart and Vascular Provider 11/06/22 11/12/22 Catherine Cm MD [address] [place] [address] [place] 739405 Assigned Heart and Vascular Provider 11/13/22 05/27/23 Sydnie Martinez RN Personal Advocate & Liaison (PAL) Family Medicine 03/28/23 07/31/23 Alfonso Renteria MD [address] [facility] [address] [place], [place] 991286 Assigned Neuroscience Provider 04/02/23 Cheng Todd PA-C [address] [place] [address] [phone] Assigned PCP 04/30/23 07/15/23 Radha Lomeli, ARLENE FRUIT HARVESTER [address] [place] [phone] Assigned Heart and Vascular Provider 05/28/23 Jelena David OD [address] [facility] [place] [address] Ophthalmology 06/15/23 Pao Joseph, VJ Personal Advocate & Liaison (PAL) Nurse 08/01/23 11/07/23 Esha Grimm PA-C [address] [place] [phone] Assigned PCP 07/16/23 Valery Veronica PA-C [address] [place] [address] 011455 Physician Biomedical Technician Dermatology 09/19/23 Rey Tay MD [address] [place] [address] 770125 MD Gastroenterology 09/20/23 Rocky Zepeda DO [address] [place] [address] [phone] Physician Gastroenterology 09/20/23 Philip Dumont MD [address] [place] [address] 003015 Physician Ophthalmology 09/22/23 Meredith [place] PA-C [address] [place] [address] Assigned Gastroenterology Provider 11/01/23 Neil Kent MD [address] [place] [address] Dermatology 11/02/23 [place] [address] [place] [address] Neurological Surgery 12/26/23 Audrey Waite PA-C [address] [place] [address] Physician Biomedical Technician Dermatology 02/28/24 documented as of this encounter
--- OUTSIDE RECORDS SUMMARY | 2024-03-23 16:07 | XMS_ITS | Encounter Summary ---
Author Organization [facility] Address [address] [place] [address] Care Team Providers Care Production Wood Craftsman Name Role Phone Lita Oseguera Unavailable Unavailable Marija Edgar APRN BIOMETRICS SPECIALIST Primary Care Provider + Chanelle Mccann INSTALLER MOLDING AND TRIM CNM Unavailab le Kyara De La Fuente RN Unavailable [phone] Marija Edgar APRN BIOMETRICS SPECIALIST Unavailable [phone] Mynor Broussard MD Unavailable Keisha Dotson MD Unavailable Mary Mejia Unavailable Unavailable Stacey Briones ENVIRONMENTAL AIDE Unavailable Lesley Moody CHW Unavailable Mary Mejia Unavailable Unavailable Lita Oseguera Unavailable Unavailable Galo Burrell MD Unavailable Unavailable Cristina Wood Unavailable Lesley Moody CHW Unavailable Meredith Bedoya Unavailable Unavailable Cristina Wood Unavailable Diana Desir [facility] Unavailable [place]uhland, Rain Lena PA-C Unavailable Summer Lara MD Unavailable Summer Lara MD Unavailable [phone] Summer Lara MD Unavailable +[phone] Tavia Wyatt MD Unavailable Unavailable SemJohnny mckeon MD Unavailable +[phone] Erica Farrell APRN BIOMETRICS SPECIALIST Unavailable + Vikas Teresita Watson H Unavailable Tavia Wyatt MD Unavailable Unavailable Diana Desir [facility] Unavailable [phone] Rich Barrett MD Unavailable [phone] Neil Kent MD Unavailable Roney Story DPM Unavailable [phone] Erica Farrell APRN BIOMETRICS SPECIALIST Unavailable + Diana Desir [facility] Unavailable [phone] Jelena David Radha OD Unavailable [phone] Galo Burrell MD Unavailable Unavailable Livan Sharif MD Unavailable + Livan Sharif MD Unavailable + Catherine Cm MD Unavailable + Valery Veronica PA-C Unavailable [phone] Catherine Cm MD Unavailable + Johnny Murillo MD Unavailable +[phone] Brea Quinn APRN BIOMETRICS SPECIALIST Unavailable [phone] Brea Quinn INSTALLER MOLDING AND TRIM BIOMETRICS SPECIALIST Unavailable [phone] Jose Francisco Johnson MD Unavailable Livan Sharif MD Unavailable + Catherine Cm MD Unavailable + Sydnie Martinez RN Unavailable Unavailable Alfonso Renteria MD Unavailable [phone] Esha Grimm PA-C Primary Care Provider Cheng Todd PA-C Unavailable Radha Lomeli APRN BIOMETRICS SPECIALIST Unavailable [phone] Frankie Jelena Radha OD Unavailable Pao Joseph RN Unavailable Unavailable Esha Grimm PA-C Unavailable [phone] Valery Veronica PA-C Unavailable [phone] Rey Tay MD Unavailable Rocky Zepeda DO Unavailable Philip Dumont MD Unavailable [phone] Meredith Carrera PA-C Unavailable [phone] Neil Kent MD Unavailable Juan Pablo Emmanuel MD Unavailable Audrey Waite PA-C Unavailable [phone] Encounter Details Date Type Department Care Team (Latest Contact Info) Description 07/29/2020 [facility] [place] [address] [address] Marija Edgar APRN BIOMETRICS SPECIALIST [address] [facility] [place] [address] Palpitations (Primary Dx) Social History Tobacco Use [...] COVID-19? No / Unsure 07/30/2020 4:53 PM ELECTRICAL EQUIPMENT ASSEMBLER documented as of this encounter Miscellaneous Notes * Telephone Encounter - Marija Edgar APRN BIOMETRICS SPECIALIST - 07/30/2020 10:21 AM ELECTRICAL EQUIPMENT ASSEMBLER Responded via Turning [employer] Marija Edgar APRN BIOMETRICS SPECIALIST on 07/30/2020 at 10:28 AM TRICAL EQUIPMENT ASSEMBLER documented in this encounter Plan of Treatment Upcoming Encounters Date Type Department Care Team (Late st Contact Info) Description 03/26/2024 11:20 AM CDT Office Visit [facility] [address] [facility] [address] [place] [address] Ebony Cid APRN BIOMETRICS SPECIALIST [address] [place] [address] 03/27/2024 11:00 AM CDT Office Visit [facility] [place] [address] [facility] [address] [place] [phone] Jelena David, [address] [place] [address] ENMA KING [address] 03/29/2024 3:30 PM CDT Therapy Visit [facility] [address] [place] [address] [address] [place] [phone] Ingris Thompson, PT [facility] [address] [facility] 106 [place] [address] 04/05/2024 2:10 PM CDT Therapy Visit [facility] [address] [facility] [address] [place] [phone] Ingris Thompson, PT [facility] [address] [facility] 106 [place], [place] [address] 04/19/2024 2:45 PM CDT Office Visit [facility] 830 [place] [phone] Audrey Waite PA-C [address] [facility] [address], [facility] 6[address] [place], [place] [address] 05/08/2024 1:30 PM CDT Office Visit [facility] [address] [place] [phone] Lauren Claudio PA-C [address] [place], [place] [phone] Esha Grimm PA-C [address] [place] [address] 06/21/2024 2:00 PM ELECTRICAL EQUIPMENT ASSEMBLER Office Visit [facility] - [address], [address] [place] [address] [place] [address] [place] [phone] Johnny Penn MD [address] [place], [place] [phone] documented as of this encounter Visit Diagnoses Diagnosis Palpitations- Primary documented in this encounter Additional Health Concerns Infection Onset Date Last Indicated Resolved Time Rule Out COVID-19 07/30/2020 07/30/2020 07/30/2020 7:11 PM ELECTRICAL EQUIPMENT ASSEMBLER Rule Out COVID-19 08/30/2020 08/30/2020 08/30/2020 5:05 PM ELECTRICAL EQUIPMENT ASSEMBLER Rule Out COVID-19 09/24/2020 09/24/2020 09/24/2020 9:24 AM CDT Rule Out COVID-19 11/05/2020 11/05/2020 11/06/2020 1:09 PM CDT Rule Out COVID-19 05/11/2021 05/11/2021 05/13/2021 10:18 AM CDT Rule Out COVID-19 07/13/2021 07/13/2021 07/14/2021 3:04 PM ELECTRICAL EQUIPMENT ASSEMBLER Rule Out COVID-19 07/18/2021 07/18/2021 07/20/2021 1:56 PM ELECTRICAL EQUIPMENT ASSEMBLER COVID-19 07/18/2021 07/18/2021 08/08/2021 11:3 9 PM ELECTRICAL EQUIPMENT ASSEMBLER Rule Out COVID-19 12/18/2021 12/18/2021 12/19/2021 11:34 AM CDT Rule Out COVID-19 02/24/2022 02/24/2022 02/25/2022 1:08 PM CDT Rule Out COVID-19 04/26/2022 04/26/2022 04/26/2022 6:47 AM CDT Rule Out COVID-19 05/17/2022 05/17/2022 05/17/2022 10:20 PM ELECTRICAL EQUIPMENT ASSEMBLER Rule Out COVID-19 06/09/2022 06/09/2022 06/09/2022 9:35 AM ELECTRICAL EQUIPMENT ASSEMBLER COVID-19 06/09/2022 06/09/2022 06/30/2022 11:4 1 PM ELECTRICAL EQUIPMENT ASSEMBLER Rule Out COVID-19 11/10/2022 11/10/2022 11/11/2022 12:17 PM CDT Rule Out COVID-19 03/07/2023 03/07/2023 03/07/2023 1:20 PM CDT Rule Out COVID-19 12/26/2023 12/26/2023 12/26/2023 9:50 AM CDT Assessment Noted Time PHQ-9 Depression Total Score: 9 06/25/20 7:04 AM ELECTRICAL EQUIPMENT ASSEMBLER documented as of this encounter Care Teams Production Wood Craftsman Relationship Specialty Start Date End Date Marija Edgar APRN BIOMETRICS SPECIALIST PCP - General Nurse Practitioner 04/30/20 04/14/23 Esha Grimm PA-C [address] [place] [phone] PCP - General Family Medicine 05/04/23 Lita Oseguera Personal Advocate & Liaison (PAL) 02/28/20 03/27/23 Chanelle Mccann APRN CNM [address] [facility] [address] [place], [place] [address] Assigned OBGYN Provider 05/02/2005/09 Kyara De La Fuente, RN Specialty Chemist Biological Neurology 06/04/20 03/05/21 Marija Edgar APRN BIOMETRICS SPECIALIST Assigned PCP 06/08/20 04/29/23 Mynor Broussard MD [address] [facility] 500 [place], [place] [address] Assigned Surgical Provider 06/01/20 11/28/21 Keisha Dotson MD [address]09 [place], [place] [address] Assigned Neuroscience Provider 06/04/20 04/01/23 Mary Mejia Financial Resource Worker 08/07/20 08/21/20 Stacey Briones, ENVIRONMENTAL AIDE Lead Chemist Biological Primary Care - CC 08/11/2012/30 Lesley Moody, [facility] Community Health Worker 08/11/2010/01 Mary Mejia Financial Resource Worker 09/02/20 10/06/20 Lita Oseguera Personal Advocate & Liaison (PAL) Family Medicine 09/10/20 09/21/20 Galo Burrell MD Assigned Heart and Vascular Provider 10/05/20 04/02/22 Cristina Wood Financial Resource Worker 10/07/20 10/14/20 Lesley Moody, [facility] Community Health Worker 10/23/2012/30 Meredith Bedoya Financial Resource Worker 10/23/20 11/23/20 Cristina Wood Financial Resource Worker 02/09/21 02/09/21 Diana Desir, [facility] [address] [place], [place] [address] Pharmacist Pharmacist 04/17/21 Rain Galaviz PA-C [address] [place] [address] [place] [address] Physician Gas Pumping Station Helper Dermatology 04/28/21 Summer Lara MD [address] [place] [phone] Assigned OBGYN Provider 05/10/2105/23 Summer Lara MD [address] [place] [address] Assigned OBGYN Provider 05/31/21 2 Summer Lara MD [address] [place] [address] Assigned OBGYN Provider 05/24/2105/30 Tavia Wyatt MD [address] [place] [address] Dermatology 07/14/21 Johnny Murillo MD [address] [place] [address] Assigned Musculoskeletal Provider 08/30/21 03/17/22 Erica Farrell APRN BIOMETRICS SPECIALIST [address] [facility] [address] [place] [address] Nurse Practitioner Cardiovascular Disease 09/09/21 [facility] [address] [place] [address] Pharmacist Pharmacist 09/24/21 09/29/21 Tavia Wyatt MD Assigned Surgical Provider 11/29/21 05/07/22 [facility] [address] [place] [address] Assigned MTM Pharmacist 01/02/22 Rich Barrett MD [address] [facility] [address] [place], [place] [phone] Physician Ophthalmology 01/21/22 Neil Kent MD [address] [place], [place] [address] Dermatology 02/24/22 Roney Story DPM [address] [facility] [address] [place] [address] Assigned Musculoskeletal Provider 03/20/22 08/13/22 Erica Farrell APRN BIOMETRICS SPECIALIST 17[address] [place] [address] Assigned Heart and Vascular Provider 04/03/22 04/16/22 Diana Desir, [facility] [address] [place], [place] [address] Assigned MTM Pharmacist 04/07/22 Jelena David OD [address] [place] [address] Assigned Surgical Provider 05/08/22 10/08/22 Galo Burrell MD Assigned Heart and Vascular Provider 04/17/22 06/11/22 Livan Sharif MD [address] [place] [address] Cardiovascular Disease 05/14/22 Livan Sharif MD [address] [place] [address] Assigned Heart and Vascular Provider 06/12/22 07/23/22 Catherine Cm MD [address] [place] [address] Cardiovascular Disease 07/21/22 Valery Veronica, PAUcheC [address]09 [place] [address] Physician Gas Pumping Station Helper Dermatology 07/21/22 Catherine Cm MD [address] [facility] [place] [address] Assigned Heart and Vascular Provider 07/24/22 11/05/22 Johnny Murillo MD [address] [address] Assigned Musculoskeletal Provider 08/14/22 10/08/22 Brea Quinn APRN BIOMETRICS SPECIALIST [address] [place] [address] [phone] Nurse Practitioner Dermatology 09/21/22 Brea Quinn APRN BIOMETRICS SPECIALIST [address] [place] [address] [place], [place] 4932[address] Assigned Surgical Provider 10/09/22 [place] [address] [phone] Assigned Musculoskeletal Provider 10/09/22 Livan Sharif MD [address] [facility] [address] [place] [address] Assigned Heart and Vascular Provider 11/06/22 11/12/22 Catherine Cm MD [address] [facility]00 [place] [address] Assigned Heart and Vascular Provider 11/13/22 05/27/23 Sydnie Martinez RN Personal Advocate & Liaison (PAL) Family Medicine 03/28/23 07/31/23 Alfonso Renteria MD [address] [facility] [address] [place] [address] Assigned Neuroscience Provider 04/02/23 Cheng Todd PA-C [address] [place] [address] Assigned PCP 04/30/23 07/15/23 Radha Lomeli APRN BIOMETRICS SPECIALIST [address] [facility] [address] [place] [address] Assigned Heart and Vascular Provider 05/28/23 Jelena David OD [address] [place] [address] Ophthalmology 06/15/23 Pao Joseph, VJ Personal Advocate & Liaison (PAL) Nurse 08/01/23 11/07/23 Esha Grimm PA-C [address] [place] [address] Assigned PCP 07/16/23 Valery Veronica PA-C 9 [place], [place] [address] Physician Gas Pumping Station Helper Dermatology 09/19/23 Rey Tay MD 9 [place] [address] Gastroenterology 09/20/23 Rocky Zepeda DO 500 [place] [address] Physician Gastroenterology 09/20/23 Philip Dumont MD 6 [place] [address] Physician Ophthalmology 09/22/23 Meredith Carrera PA-C [address] [place] [address] Assigned Gastroenterology Provider 11/01/23 Neil Kent MD [address] [address] Dermatology 11/02/23 [place] [address] [address] Neurological Surgery 12/26/23 Audrey Waite PA-C 500 [place] [address] Physician Gas Pumping Station Helper Dermatology 02/28/24 documented as of this encounter
--- OUTSIDE RECORDS SUMMARY | 2024-03-23 16:07 | XMS_ITS | Encounter Summary ---
Author Organization [place] Address [address] [place] [address] Care Team Providers Care Housing Assistant Name Role Phone Lita Oseguera Unavailable Unavailable Marija Edgar APRN REMOTE SENSING RESEARCH SCIENTIST Primary Care Provider + Chanelle Mccann APRN CNM Unavailab le Kyara De La Fuente RN Unavailable [phone] Marija Edgar APRN REMOTE SENSING RESEARCH SCIENTIST Unavailable Mynor Broussard MD Unavailable [phone] Keisha Dotson MD Unavailable Stacey Briones [employer] MAKER Unavailable Lesley Moody CHW Unavailable [phone] Mary Mejia Unavailable Unavailable Lita Oseguera Unavailable Unavailable Galo Burrell MD Unavailable Unavailable Cristina Wood Unavailable Lesley Moody CHW Unavailable Meredith Bedoya Unavailable Unavailable Cristina Wood Unavailable Diana Desir [facility] Unavailable Rain Galaviz PA-C Unavailable Summer Lara MD Unavailable Summer Lara MD Unavailable [phone] Summer Lara MD Unavailable + [phone] Tavia Wyatt MD Unavailable Unavailable SemJohnny mckeon MD Unavailable +1- Erica Farrell APRN REMOTE SENSING RESEARCH SCIENTIST Unavailable + Vikas Teresitafazal Watson H Unavailable Tavia Wyatt MD Unavailable Unavailable Diana Desir [facility] Unavailable [phone] Rich Barrett MD Unavailable [phone] Neil Kent MD Unavailable Roney Story DPM Unavailable [phone] Erica Farrell QUALITY CONTROL AUDITOR REMOTE SENSING RESEARCH SCIENTIST Unavailable + Diana Desir [facility] Unavailable [phone] Tommy Davidmao Templetone OD Unavailable [phone] Galo Burrell MD Unavailable Unavailable Livan Sharif MD Unavailable + Livan Sharif MD Unavailable + Catherine Cm MD Unavailable + Valery Veronica PA-C Unavailable [phone] Catherine Cm MD Unavailable + Johnny Murillo MD Unavailable +1- Brea Quinn APRN REMOTE SENSING RESEARCH SCIENTIST Unavailable [phone] Brea Quinn QUALITY CONTROL AUDITOR REMOTE SENSING RESEARCH SCIENTIST Unavailable [phone] Jose Francisco Johnson MD Unavailable Livan Sharif MD Unavailable + Catherine Cm MD Unavailable + Sydnie Martinez RN Unavailable Unavailable Alfonso Renteria MD Unavailable [phone] Esha Grimm PA-C Primary Care Provider [phone] Cheng Todd PA-C Unavailable Radha Lomeli QUALITY CONTROL AUDITOR REMOTE SENSING RESEARCH SCIENTIST Unavailable FrankieJelena SONJA Unavailable Pao Joseph RN Unavailable Unavailable Esha Grimm-C Unavailable [phone] Valery Veronica PA-C Unavailable Rey Tay MD Unavailable Rocky Zepeda DO Unavailable Philip Dumont MD Unavailable Meredith Carrera PA-C Unavailable Neil Kent MD Unavailable Juan Pablo Emmanuel MD Unavailable [phone] Audrey Waite PA-C Unavailable Reason for Visit * Reason Onset Date Comments MyChart Communication 09/02/2020 Encounter Details Date Type Department Care Team (Latest Contact Info) Description 09/02/2020 [facility] [address] [address] Marija Edgar APRN REMOTE SENSING RESEARCH SCIENTIST [address] [place] [address] MyChart Communication Social History Tobacco [...] you attend [facility] or hoahaoism services? More than 4 times [...] Date Recorded PHQ-2 Score 0 08/12/2020 [facility] - Occupational Stress Questionnaire [...] COVID-19? No / Unsure 09/05/2020 2:50 PM SOCIAL WORKER [employer]STERS documented as of this encounter Miscellaneous Notes * Telephone Encounter - Ever Cardozo MA - 09/03/2020 10:34 AM CST Responded to patient as below. Ever Cardozo CMA ([facility]) AL WORKER [employer]ERS documented in this encounter Plan of Treatment Upcoming Encounters Date Type Department Care Team (Late st Contact Info) Description 03/26/2024 11:20 AM CDT Office Visit [facility] Spine and Neurosurgery [address] [facility] [address] [place] [address] Ebony Cid, QUALITY CONTROL AUDITOR [facility] [address] [place] [address] 03/27/2024 11:00 AM CDT Office Visit [facility] [address] [facility] [address] [place] [phone] Jelena David, [address] [place] [address] [place] [address] 03/29/2024 3:30 PM CDT Therapy Visit [address] [phone] Ingris Thompson, [facility] [address] [place] [address] 04/05/2024 2:10 PM CDT Therapy Visit [address] [phone] Ingris Thompson, PT [facility] [address] [place] [phone] 04/19/2024 2:45 PM CDT Office Visit [address] [phone] Audrey Waite PA-C [address], [facility] [address] [place], [place] [phone] 05/08/2024 1:30 PM CDT Office Visit [facility] [address] [place] [address] Lauren Claudio PA-C [address] [place] [address] Esha Grimm PA-C [address] [place] [address] 06/21/2024 2:00 PM [employer]IAL WORK[employer] Office Visit [facility] Neurology [facility] [address], [address] [place] [phone] [place] [address] [phone] Johnny Penn MD [address] [place], [place] [phone] documented as of this encounter Visit Diagnoses Not on filedocumented in this encounter Additional Health Concerns Infection Onset Date Last Indicated Resolved Time Rule Out COVID-19 09/24/2020 09/24/2020 09/24/2020 9:24 AM CDT Rule Out COVID-19 11/05/2020 11/05/2020 11/06/2020 1:09 PM CDT Rule Out COVID-19 05/11/2021 05/11/2021 05/13/2021 10:18 AM CDT Rule Out COVID-19 07/13/2021 07/13/2021 07/14/2021 3:04 PM SOCIAL WORK[employer]STERS Rule Out COVID-19 07/18/2021 07/18/2021 07/20/2021 1:56 PM SOCIAL WORKER MASTERS COVID-19 07/18/2021 07/18/2021 08/08/2021 11:3 9 PM SOCIAL WORKER MASTERS Rule Out COVID-19 12/18/2021 12/18/2021 12/19/2021 11:34 AM CDT Rule Out COVID-19 02/24/2022 02/24/2022 02/25/2022 1:08 PM CDT Rule Out COVID-19 04/26/2022 04/26/2022 04/26/2022 6:47 AM CDT Rule Out COVID-19 05/17/2022 05/17/2022 05/17/2022 10:20 PM SOCIAL WORKER MASTERS Rule Out COVID-19 06/09/2022 06/09/2022 06/09/2022 9:35 AM SOCIAL WORKER MASTERS COVID-19 06/09/2022 06/09/2022 06/30/2022 11:4 1 PM SOCIAL WORKER MASTERS Rule Out COVID-19 11/10/2022 11/10/2022 11/11/2022 12:17 PM CDT Rule Out COVID-19 03/07/2023 03/07/2023 03/07/2023 1:20 PM CDT Rule Out COVID-19 12/26/2023 12/26/2023 12/26/2023 9:50 AM CDT Assessment Noted Time PHQ-9 Depression Total Score: 9 06/25/20 20 7:04 AM SOCIAL WORK[employer]ERS documented as of this encounter Care Teams Housing Assistant Relationship Specialty Start Date End Date Marija Edgar APRN REMOTE SENSING RESEARCH SCIENTIST PCP - General Nurse Practitioner 04/30/20 04/14/23 Esha Grimm PA-C [address] [place] [phone] PCP - General Family Medicine 05/04/23 Lita Oseguera Personal Advocate & Liaison (PAL) 02/28/20 03/27/23 Chanelle Mccann APRN CNM [address] [facility] [address] [place] [address] Assigned OBGYN Provider 05/02/2005/09 Kyara De La Fuente, RN Specialty Repairer [employer] Neu[facility] 06/04/20 03/05/21 Marija Edgar APRN CNP Assigned PCP 06/08/20 04/29/23 Mynor Broussard MD [address] [facility] 500 [place], [place] [phone] Assigned Surgical Provider 06/01/20 11/28/21 Keisha Dotson MD [address] [place], [place] [phone] Assigned Neuroscience Provider 06/04/20 04/01/23 Stacey Briones, [facility] Lead Repairer [employer] [facility] - CC 08/11/2012/30 Lesley Moody, [...] Worker 02/09/21 02/09/21 Diana Desir, [facility] [address] [place] [address] Pharmacist Pharmacist 04/17/21 Rain Galaviz PA-C [address] [place] [address] [place] [address] Physician Warehouse Puller Dermatology 04/28/21 Summer Lara MD [address] [place] [address] Assigned OBGYN Provider 05/10/2105/23 Summer Lara MD [address] [place] [address] Assigned OBGYN Provider 05/31/21 2 Summer Lara MD [address] [place] [address] Assigned OBGYN Provider 05/24/2105/30 Tavia Wyatt MD [address] [place] [address] Dermatology 07/14/21 Johnny Murillo MD [address] [place] [address] Assigned Musculoskeletal Provider 08/30/21 03/17/22 Erica Farrell APRN REMOTE SENSING RESEARCH SCIENTIST [address] [facility] [address] [place] [phone] Nurse Practitioner Cardiovascular Disease 09/09/21 Teresita Bean [facility] [address] [place] [phone] Pharmacist Pharmacist 09/24/21 09/29/21 Tavia Wyatt MD Assigned Surgical Provider 11/29/21 05/07/22 Diana Desir, [facility] [address] [place] [address] Assigned MTM Pharmacist 01/02/22 Rich Barrett MD [address] [address] Physician Ophthalmology 01/21/22 Neil Kent MD [address] [place], [place] [address] Dermatology 02/24/22 Roney Story DPM [address] [facility] [address] [place] [address] Assigned Musculoskeletal Provider 03/20/22 08/13/22 Erica Farrell APRN REMOTE SENSING RESEARCH SCIENTIST [address] [place] [address] Assigned Heart and Vascular Provider 04/03/22 04/16/22 Diana Desir, [facility] [address] [place] [address] Assigned MTM Pharmacist 04/07/22 Jelena David OD [address] [facility] [place] [address] Assigned Surgical Provider 05/08/22 10/08/22 Galo Burrell MD Assigned Heart and Vascular Provider 04/17/22 06/11/22 Livan Sharif MD [address], [facility] [address] [place] [phone] Cardiovascular Disease 05/14/22 Livan Sharif MD [address] [place] [phone] Assigned Heart and Vascular Provider 06/12/22 07/23/22 Catherine Cm MD [address] [place] [address] Cardiovascular Disease 07/21/22 Valery Veronica, PA-C [address] [place] [address] Physician Warehouse Puller Dermatology 07/21/22 Catherine Cm MD [address] [place] [address] Assigned Heart and Vascular Provider 07/24/22 11/05/22 Johnny Murillo MD [facility] [address] [address] Assigned Musculoskeletal Provider 08/14/22 10/08/22 Brea Quinn APRN REMOTE SENSING RESEARCH SCIENTIST [address] [place] [address] Nurse Practitioner Dermatology 09/21/22 Brea Quinn APRN REMOTE SENSING RESEARCH SCIENTIST [address] [facility] [place] [address] Assigned Surgical Provider 10/09/22 [place] [address] [facility] [address] [place] [address] Assigned Musculoskeletal Provider 10/09/22 Livan Sharif MD [address], [facility] [address] [place] [address] Assigned Heart and Vascular Provider 11/06/22 11/12/22 Catherine Cm MD [address] [place] [address] Assigned Heart and Vascular Provider 11/13/22 05/27/23 Sydnie Martinez RN Personal Advocate & Liaison (PAL) Family Medicine 03/28/23 07/31/23 Alfonso Renteria MD [address] [facility] 200 [place] [address] Assigned Neuroscience Provider 04/02/23 Cheng Todd PA-C [address] [place] [address] [phone] Assigned PCP 04/30/23 07/15/23 Radha Lomeli APRN REMOTE SENSING RESEARCH SCIENTIST [address] [place] [address] Assigned Heart and Vascular Provider 05/28/23 Jelena David OD [address] [facility] [place] [address] MD Ophthalmology 06/15/23 Pao Joseph, RN Personal Advocate & Liaison (PAL) Nurse 08/01/23 11/07/23 Esha Grimm PA-C [address] [place] [phone] Assigned PCP 07/16/23 Valery Veronica PA-C [address] [place] [address] Physician Warehouse Puller Dermatology 09/19/23 Rey Tay MD [address] [place] [address] MD Gastroenterology 09/20/23 Rocky Zepeda DO [address] [place] [address] [phone] Physician Gastroenterology 09/20/23 Philip Dumont MD [address] [place] [address] [phone] Physician Ophthalmology 09/22/23 Meredith Carrera PA-C [address] [place] [address] [phone] Assigned Gastroenterology Provider 11/01/23 Neil Kent MD [address] [address] Dermatology 11/02/23 [place] [address] [address] Neurological Surgery 12/26/23 Audrey Waite, PAUcheC [address] [place], [place] [address]75 Physician Warehouse Puller Dermatology 02/28/24 documented as of this encounter
--- OUTSIDE RECORDS SUMMARY | 2024-03-23 16:07 | XMS_ITS | Encounter Summary ---
Author Organization [facility] Address [address] [place] [address] Care Team Providers Care Advertising Vice President Name Role Phone Lita Oseguera Unavailable Unavailable Marija Edgar APRN BLAST FURNACE KEEPER Primary Care Provider + Chanelle Mccann DIRECTOR OF SALES AND MARKETING CNM Unavailab le Kyara De La Fuente RN Unavailable [phone] Marija Edgar APRN BLAST FURNACE KEEPER Unavailable Mynor Broussard MD Unavailable [phone] Keisha Dotson MD Unavailable Mary Mejia Unavailable Unavailable Stacey Briones CHILD NUTRITION MANAGER Unavailable Lesley Moody CHW Unavailable [phone] Mary Mejia Unavailable Unavailable Lita Oseguera Unavailable Unavailable Galo Burrell MD Unavailable Unavailable Cristina Wood Unavailable Lesley Moody CHW Unavailable [phone] Meredith Bedoya Unavailable Unavailable Cristina Wood Unavailable Diana Desir [facility] Unavailable [phone] Ruhland, Rain Lena PA-C Unavailable Summer Lara MD Unavailable [phone] Summer Lara MD Unavailable [phone] Summer Lara MD Unavailable [phone] Tavia Wyatt MD Unavailable Unavailable SemJohnny mckeon MD Unavailable [phone] Erica Farrell APRN BLAST FURNACE KEEPER Unavailable + Vikas Teresita Watson H Unavailable Tavia Wyatt MD Unavailable Unavailable Diana Desir [facility] Unavailable [phone] Rich Barrett MD Unavailable [phone] Neil Kent MD Unavailable Roney Story DPM Unavailable [phone] Erica Farrell APRN BLAST FURNACE KEEPER Unavailable + Diana Desir [facility] Unavailable [phone] Jelena David Radha OD Unavailable Galo Burrell MD Unavailable Unavailable Livan Sharif MD Unavailable + Livan Sharif MD Unavailable + Catherine Cm MD Unavailable + Valery Veronica PA-C Unavailable [phone] Catherine Cm MD Unavailable + Johnny Murillo MD Unavailable +[phone] Brea Quinn APRN BLAST FURNACE KEEPER Unavailable [phone] Brea Quinn DIRECTOR OF SALES AND MARKETING BLAST FURNACE KEEPER Unavailable [phone] Jose Francisco Johnson MD Unavailable Livan Sharif MD Unavailable + Catherine Cm MD Unavailable + Sydnie Martinez RN Unavailable Unavailable Alfonso Renteria MD Unavailable [phone] Esha Grimm PA-C Primary Care Provider Cheng Todd PA-C Unavailable Radha Lomeli APRN BLAST FURNACE KEEPER Unavailable FrankieJelenae OD Unavailable [phone] Pao Joseph RN Unavailable Unavailable Esha Grimm PA-C Unavailable [phone] Valery Veronica PA-C Unavailable Rey Tay MD Unavailable Rocky Zepeda DO Unavailable Philip Dumont MD Unavailable Meredith Carrera PA-C Unavailable Neil Kent MD Unavailable Juan Pablo Emmanuel MD Unavailable Audrey Waite PA-C Unavailable [phone] Encounter Details Date Type Department Care Team (Late st Contact Info) Description 07/29/2020 MyC Medical Advice [facility] [place] [facility] [address], [address] [place] [address] Keisha Dotson MD [address] [place] [address] Social History Tobacco Use Types [...] COVID-19? No / Unsure 07/30/2020 4:53 PM STEWARD/STEWARDESS THIRD CLASS documented as of this encounter Plan of Treatment Upcoming Encounters Date Type Department Care Team (Late st Contact Info) Description 03/26/2024 11:20 AM CDT Office Visit [facility] Spine and Neurosurgery [address] [facility] [address] [place] [address] Ebony Cid, [facility] [address] [place] [address] 03/27/2024 11:00 AM CDT Office Visit [facility] [address] [facility] [address] [place] [phone] Jelena David, [address] [facility] [place] [address] 03/29/2024 3:30 PM CDT Therapy Visit [facility] [address] [place] [address] [address] [place] [phone] Ingris Thompson, PT [facility] [address] [place] [address] 04/05/2024 2:10 PM CDT Therapy Visit [facility] [address] [place] [address] [address] [place] [phone] Ingris Thompson, PT [address] [address] 04/19/2024 2:45 PM CDT Office Visit [facility] [address] [place] [phone] Audrey Waite PA-C [address] [facility] [address], [facility] [address] [place], [place] [address] 05/08/2024 1:30 PM CDT Office Visit [facility] [address] [place] [address] Lauren Claudio PA-C [address] [place] [address] Esha Grimm PA-C [address] [place] [address] 06/21/2024 2:00 PM STEWARD/STEWARDESS THIRD CLASS Office Visit [facility] Neurology Clinics - [address], [address] [place] [phone] [place] [address] [place] [address] Johnny Penn MD [address] [place], [place] [address] documented as of this encounter Visit Diagnoses Not on filedocumented in this encounter Additional Health Concerns Infection Onset Date Last Indicated Resolved Time Rule Out COVID-19 07/30/2020 07/30/2020 07/30/2020 7:11 PM STEWARD/STEWARDESS THIRD CLASS Rule Out COVID-19 08/30/2020 08/30/2020 08/30/2020 5:05 PM STEWARD/STEWARDESS THIRD CLASS Rule Out COVID-19 09/24/2020 09/24/2020 09/24/2020 9:24 AM CDT Rule Out COVID-19 11/05/2020 11/05/2020 11/06/2020 1:09 PM CDT Rule Out COVID-19 05/11/2021 05/11/2021 05/13/2021 10:18 AM CDT Rule Out COVID-19 07/13/2021 07/13/2021 07/14/2021 3:04 PM STEWARD/STEWARDESS THIRD CLASS Rule Out COVID-19 07/18/2021 07/18/2021 07/20/2021 1:56 PM STEWARD/STEWARDESS THIRD CLASS COVID-19 07/18/2021 07/18/2021 08/08/2021 11:3 9 PM STEWARD/STEWARDESS THIRD CLASS Rule Out COVID-19 12/18/2021 12/18/2021 12/19/2021 11:34 AM CDT Rule Out COVID-19 02/24/2022 02/24/2022 02/25/2022 1:08 PM CDT Rule Out COVID-19 04/26/2022 04/26/2022 04/26/2022 6:47 AM CDT Rule Out COVID-19 05/17/2022 05/17/2022 05/17/2022 10:20 PM STEWARD/STEWARDESS THIRD CLASS Rule Out COVID-19 06/09/2022 06/09/2022 06/09/2022 9:35 AM STEWARD/STEWARDESS THIRD CLASS COVID-19 06/09/2022 06/09/2022 06/30/2022 11:4 1 PM STEWARD/STEWARDESS THIRD CLASS Rule Out COVID-19 11/10/2022 11/10/2022 11/11/2022 12:17 PM CDT Rule Out COVID-19 03/07/2023 03/07/2023 03/07/2023 1:20 PM CDT Rule Out COVID-19 12/26/2023 12/26/2023 12/26/2023 9:50 AM CDT Assessment Noted Time PHQ-9 Depression Total Score: 9 06/25/20 20 7:04 AM STEWARD/STEWARDESS THIRD CLASS documented as of this encounter Care Teams Advertising Vice President Relationship Specialty Start Date End Date Marija Edgar APRN CNP PCP - General Nurse Practitioner 04/30/20 04/14/23 Esha Grimm PA-C [address] [place] [phone] PCP - General Family Medicine 05/04/23 Lita Oseguera Personal Advocate & Liaison (PAL) 02/28/20 03/27/23 Chanelle Mccann APRN CNM [address] [place] [address], [facility] [address] [place] [address] Assigned OBGYN Provider 05/02/2005/09 Kyara De La Fuente, RN Specialty Client Finance Analyst Neurology 06/04/20 03/05/21 Marija Edgar APRN BLAST FURNACE KEEPER Assigned PCP 06/08/20 04/29/23 Mynor Broussard MD [address] [facility] 500 [place] [address] Assigned Surgical Provider 06/01/20 11/28/21 Keisha Dotson MD [address] [place] [address] Assigned Neuroscience Provider 06/04/20 04/01/23 Mary Mejia Financial Resource Worker 08/07/20 08/21/20 Stacey Briones, CHILD NUTRITION MANAGER Lead Client Finance Analyst Primary Care - CC 08/11/2012/30 Lesley Moody, W Community Health Worker 08/11/2010/01 Mary Mejia Financial Resource Worker 09/02/20 10/06/20 Lita Oseguera Personal Advocate & Liaison (PAL) Family Medicine 09/10/20 09/21/20 Galo Burrell MD Assigned Heart and Vascular Provider 10/05/20 04/02/22 Cristina Wood Financial Resource Worker 10/07/20 10/14/20 Lesley Moody, [facility] Community Health Worker 10/23/2012/30 Meredith Bedoya Financial Resource Worker 10/23/20 11/23/20 Cristina Wood Financial Resource Worker 02/09/21 02/09/21 Diana Desir, [facility] [address] [place] [address] Pharmacist Pharmacist 04/17/21 Rain Galaviz PA-C [address] [place] [address] [place] [address] Physician Life Insurance Salesperson Dermatology 04/28/21 Summer Lara MD [address] [place] [address] [phone] Assigned OBGYN Provider 05/10/2105/23 Summer Lara MD [address] [place] [address] [phone] Assigned OBGYN Provider 05/31/21 2 Summer Lara MD [address] [place] [address] 649654 Assigned OBGYN Provider 05/24/2105/30 Tavia Wyatt MD [address] [place] [address] Dermatology 07/14/21 Johnny Murillo MD [address] [place] [address] Assigned Musculoskeletal Provider 08/30/21 03/17/22 Erica Farrell APRN BLAST FURNACE KEEPER [address] [facility] [address] [place] [address] Nurse Practitioner Cardiovascular Disease 09/09/21 Teresita Bean, [facility] [address] [place] [phone] Pharmacist Pharmacist 09/24/21 09/29/21 Tavia Wyatt MD Assigned Surgical Provider 11/29/21 05/07/22 [facility] [address] [place] [address] Assigned MTM Pharmacist 01/02/22 Rich Barrett MD [address] [facility] [address] [place] [address] Physician Ophthalmology 01/21/22 Neil Kent MD [address] [place] [address] Dermatology 02/24/[address] [place] [address] [facility] [address] [place], [place] [address] Assigned Musculoskeletal Provider 03/20/22 08/13/22 Erica Farrell APRN BLAST FURNACE KEEPER [address] [place] [address] Assigned Heart and Vascular Provider 04/03/22 04/16/22 Diana Desir, [facility] [address] [place] [address] Assigned MTM Pharmacist 04/07/22 Jelena David OD [address] [facility] [place] [address] Assigned Surgical Provider 05/08/22 10/08/22 Galo Burrell MD Assigned Heart and Vascular Provider 04/17/22 06/11/22 Livan Sharif MD [address] [place] [address] Cardiovascular Disease 05/14/22 Livan Sharif MD [address] [place] [address] Assigned Heart and Vascular Provider 06/12/22 07/23/22 Catherine Cm MD [address] [place] [address] Cardiovascular Disease 07/21/22 Valery Veronica, PAUcheC [address] [place] [address] Physician Life Insurance Salesperson Dermatology 07/21/22 Catherine Cm MD [address] [place] [address] Assigned Heart and Vascular Provider 07/24/22 11/05/22 Johnny Murillo MD [address] [phone] Assigned Musculoskeletal Provider 08/14/22 10/08/22 Brea Quinn APRN BLAST FURNACE KEEPER [address] [place] [phone] Nurse Practitioner Dermatology 09/21/22 Brea Quinn APRN BLAST FURNACE KEEPER [facility] [place] [id number] Assigned Surgical Provider 10/09/22 [place] [address] [address] Assigned Musculoskeletal Provider 10/09/22 Livan Sharif MD [address], [facility] [address] [place] [address] Assigned Heart and Vascular Provider 11/06/22 11/12/22 Catherine Cm MD [address] [facility] [address] [place] [address] Assigned Heart and Vascular Provider 11/13/22 05/27/23 JuanSydnie malik RN Personal Advocate & Liaison (PAL) Family Medicine 03/28/23 07/31/23 Alfonso Renteria MD [address] [facility] [address] [place], [place] [address] Assigned Neuroscience Provider 04/02/23 Cheng Todd PA-C [address] [place] [address] Assigned PCP 04/30/23 07/15/23 Radha Lomeli APRN BLAST FURNACE KEEPER [address] [facility] [address] [place] [address] Assigned Heart and Vascular Provider 05/28/23 Jelena David OD [address] [facility] [place] [address] Ophthalmology 06/15/23 Pao Joseph, VJ Personal Advocate & Liaison (PAL) Nurse 08/01/23 11/07/23 Esha Grimm PA-C [address] [place] [phone] Assigned PCP 07/16/23 Valery Veronica PA-C [address] [place] [address] [phone] Physician Life Insurance Salesperson Dermatology 09/19/23 Rey Tay MD [address] [place] [address] 029605 Gastroenterology 09/20/23 Rocky Zepeda DO [address] [place] [address] 804275 Physician Gastroenterology 09/20/23 Philip Dumont MD [address] [place] [address]485 Physician Ophthalmology 09/22/23 Meredith Carrera PA-C [address] [place], [place] 7489[address] Assigned Gastroenterology Provider 11/01/23 Neil Kent MD [address] [address] Dermatology 11/02/23 [place] [address] [place] [address] 665[address] Neurological Surgery 12/26/23 Audrey Waite PA-C [address] [place], [place] 27[address] Physician Life Insurance Salesperson Dermatology 02/28/24 documented as of this encounter
--- OUTSIDE RECORDS SUMMARY | 2024-03-23 16:08 | XMS_ITS | Encounter Summary ---
Author Organization [place] Address [address] [place] [address] Care Team Providers Care Oil Spraying Machine Operator Name Role Phone Lita Oseguera Unavailable Unavailable Rakesh Cid PA-C Unavailable Marija Edgar TEACHER EMOTIONALLY IMPAIRED CERTIFIED SOLID WASTE FACILITY OPERATOR Primary Care Provider + Chanelle Mccann TEACHER EMOTIONALLY IMPAIRED CNM Unavailab le Lesley Moody CHW Unavailable Kyara De La Fuente RN Unavailable Marija Edgar APRN CERTIFIED SOLID WASTE FACILITY OPERATOR Unavailable Mynor Broussard MD Unavailable [phone] Keisha Dotson MD Unavailable [phone] Mary Mejia Unavailable Unavailable Stacey Briones BUNCH BREAKER Unavailable [phone] Lesley Moody CHW Unavailable [phone] Mary Mejia Unavailable Unavailable Lita Oseguera Unavailable Unavailable Galo Burrell MD Unavailable Unavailable Cristina Wood Unavailable Lesley Moody CHW Unavailable Meredith Bedoya Unavailable Unavailable Cristina Wood Unavailable DesirDiana [facility] Unavailable [phone] Rain Galaviz PA-C Unavailable [phone] Summer Lara MD Unavailable [phone] Summer Lara MD Unavailable [phone] Summer Lara MD Unavailable [phone] Tavia Wyatt MD Unavailable Unavailable Johnny Murillo MD Unavailable [phone] Erica Farrell TEACHER EMOTIONALLY IMPAIRED CERTIFIED SOLID WASTE FACILITY OPERATOR Unavailable Vikas Teresita Jesus Walter [facility] Unavailable Tavia Wyatt MD Unavailable Unavailable Diana Desir [facility] Unavailable [phone] Rich Barrett MD Unavailable [phone] Neil Kent MD Unavailable Roney Story DPM Unavailable Erica Farrell TEACHER EMOTIONALLY IMPAIRED CERTIFIED SOLID WASTE FACILITY OPERATOR Unavailable Diana Desir [facility] Unavailable [phone] Jelena David OD Unavailable Galo Burrell MD Unavailable Unavailable Livan Sharif MD Unavailable + Livan Sharif MD Unavailable + Catherine Cm MD Unavailable + Valery Veronica PA-C Unavailable [phone] Catherine Cm MD Unavailable + Johnny Murillo MD Unavailable [phone] Brea Quinn TEACHER EMOTIONALLY IMPAIRED CERTIFIED SOLID WASTE FACILITY OPERATOR Unavailable [phone] Brea Quinn TEACHER EMOTIONALLY IMPAIRED CERTIFIED SOLID WASTE FACILITY OPERATOR Unavailable [phone] Jose Francisco Johnson MD Unavailable Livan Sharif MD Unavailable Catherine Cm MD Unavailable + Sydnie Martinez RN Unavailable Unavailable Alfonso Renteria MD Unavailable [phone] Esha Grimm PA-C Primary Care Provider Cheng Todd PA-C Unavailable Radha Lomeli APRN CERTIFIED SOLID WASTE FACILITY OPERATOR Unavailable Jelena David OD Unavailable [phone] Pao Joseph RN Unavailable Unavailable Esha Grimm PA-C Unavailable [phone] Valery Veronica PA-C Unavailable [phone] Rey Tay MD Unavailable Rocky Zepeda DO Unavailable Philip [place] MD Unavailable [phone] Meredith Carrera PA-C Unavailable [phone] Neil Kent MD Unavailable Juan Pablo Emmanuel MD Unavailable Audrey Waite PA-C Unavailable [phone] Encounter Details Date Type Department Care Team (Late st Contact Info) Description 06/05/2020 MyC Medical Advice [address] [address] Marija Edgar APRN CERTIFIED SOLID WASTE FACILITY OPERATOR [address] [place] [address] Social History Tobacco Use Types Packs/Day [...] COVID-19? No / Unsure 06/04/2020 10:30 AM CASE BRIEFER documented as of this encounter Miscellaneous Notes * Telephone Encounter - Marija Edgar APRN CNP - 06/09/2020 9:38 AM CASE BRIEFER Those referrals have been placed. The mental health attempted call but patient did not answer. Please have patient check voicemail's or await one further follow-up call. They will call her to set up Holter monitor. Thank you Marija Edgar APRN CNP on 06/09/2020 at 9:40 AM BRIEFER documented in this encounter Plan of Treatment Upcoming Encounters Date Type Department Care Team (Late st Contact Info) Description 03/26/2024 11:20 AM CDT Office Visit [facility] Spine and Neurosurgery [address] [facility] [address] [place] [address] Ebony Cid APRN CERTIFIED SOLID WASTE FACILITY OPERATOR [address] [place] [address] 03/27/2024 11:00 AM CDT Office Visit [facility] [place] [address] [facility] [address] [place] [phone] Jelena David, SONJA [address] [facility] [place] [address] 03/29/2024 3:30 PM CDT Therapy Visit [facility] Rehabilitation Services [address] [place] [phone] Ingris Thompson, PT [facility] [address] [facility] 106 [place], [place] [address] 04/05/2024 2:10 PM CDT Therapy Visit [facility] [place] [address] [facility] 160 [place] [phone] Ingris Thompson, PT [facility] 6 [facility] 106 [place] [address] 04/19/2024 2:45 PM CDT Office Visit [address] [phone] Audrey Waite PA-C [address] [facility] [address], [facility] 603 [place], [place] [address] 05/08/2024 1:30 PM CDT Office Visit [facility] [address] [place] [address] Lauren Claudio PA-C [address] [place], [place] [phone] Esha Grimm PA-C [address] [place] [address] 06/21/2024 2:00 PM CASE BRIEFER Office Visit [facility] Neurology [facility] [place] [address] [place] [address], [address] [place] [address] [place] [address] [place], [place] [phone] Johnny Penn MD [address] [place] [address] documented as of this encounter Visit Diagnoses Not on filedocumented in this encounter Additional Health Concerns Infection Onset Date Last Indicated Resolved Time Rule Out COVID-19 07/30/2020 07/30/2020 07/30/2020 7:11 PM CASE BRIEFER Rule Out COVID-19 08/30/2020 08/30/2020 08/30/2020 5:05 PM CASE BRIEFER Rule Out COVID-19 09/24/2020 09/24/2020 09/24/2020 9:24 AM CDT Rule Out COVID-19 11/05/2020 11/05/2020 11/06/2020 1:09 PM CDT Rule Out COVID-19 05/11/2021 05/11/2021 05/13/2021 10:18 AM CDT Rule Out COVID-19 07/13/2021 07/13/2021 07/14/2021 3:04 PM CASE BRIEFER Rule Out COVID-19 07/18/2021 07/18/2021 07/20/2021 1:56 PM CASE BRIEFER COVID-19 07/18/2021 07/18/2021 08/08/2021 11:3 9 PM CASE BRIEFER Rule Out COVID-19 12/18/2021 12/18/2021 12/19/2021 11:34 AM CDT Rule Out COVID-19 02/24/2022 02/24/2022 02/25/2022 1:08 PM CDT Rule Out COVID-19 04/26/2022 04/26/2022 04/26/2022 6:47 AM CDT Rule Out COVID-19 05/17/2022 05/17/2022 05/17/2022 10:20 PM CASE BRIEFER Rule Out COVID-19 06/09/2022 06/09/2022 06/09/2022 9:35 AM CASE BRIEFER COVID-19 06/09/2022 06/09/2022 06/30/2022 11:4 1 PM CASE BRIEFER Rule Out COVID-19 11/10/2022 11/10/2022 11/11/2022 12:17 PM CDT Rule Out COVID-19 03/07/2023 03/07/2023 03/07/2023 1:20 PM CDT Rule Out COVID-19 12/26/2023 12/26/2023 12/26/2023 9:50 AM CDT Assessment Noted Time PHQ-9 Depression Total Score: 9 06/04/20 10:35 AM CASE BRIEFER documented as of this encounter Care Teams Oil Spraying Machine Operator Relationship Specialty Start Date End Date Marija Edgar APRN CERTIFIED SOLID WASTE FACILITY OPERATOR [address] [place] [address] PCP - General Nurse Practitioner 04/30/20 04/14/23 Esha Grimm PA-C [address] [place] [phone] PCP - General Family Medicine 05/04/23 Lita Oseguera Personal Advocate & Liaison (PAL) 02/28/20 03/27/23 Rakesh Cid PA-C [address] [place] [address] Assigned PCP 03/02/20 06/07/20 Chanelle Mccann APRN CNM [address] 353257 Assigned OBGYN Provider 05/02/2005/09 Lesley Moody CHW Community Health Worker 05/30/2005/12 Kyara De La Fuente, RN Specialty Food Crops Farm Hand Neurology 06/04/20 03/05/21 Marija Edgar APRN CERTIFIED SOLID WASTE FACILITY OPERATOR [address] [place] [address] Assigned PCP 06/08/20 04/29/23 Mynor Broussard MD [address] [address] Assigned Surgical Provider 06/01/20 11/28/21 Keisha Dotson MD [address] [place] [address] Assigned Neuroscience Provider 06/04/20 04/01/23 Mary Mejia Financial Resource Worker 08/07/20 08/21/20 Stacey Briones, [facility] Lead Food Crops Farm Hand Primary Care - CC 08/11/2012/30 Lesley Moody, [facility] Community Health Worker 08/11/2010/01 Mary Mejia Financial Resource Worker 09/02/20 10/06/20 Lita Oseguera Personal Advocate & Liaison (PAL) Family Medicine 09/10/20 09/21/20 Galo Burrell MD Assigned Heart and Vascular Provider 10/05/20 04/02/22 Cristina Wood Financial Resource Worker 10/07/20 10/14/20 Lesley Moody, [facility] Community Health Worker 10/23/2012/30 Meredith Bedoya Financial Resource Worker 10/23/20 11/23/20 Cristina Wood Financial Resource Worker 02/09/21 02/09/21 Diana Desir, [facility] [address] [place] [address] Pharmacist Pharmacist 04/17/21 Rain Galaviz PA-C [address] [facility] [address] [facility] [place] [address] Physician Fire Captain Marine Dermatology 04/28/21 Summer Lara MD [address] [facility] [place] [address] Assigned OBGYN Provider 05/10/2105/23 Summer Lara MD [address] [facility] [address] [place], [place] [address] Assigned OBGYN Provider 05/31/21 Summer Lara MD [address] [place] [address] Assigned OBGYN Provider 05/24/2105/30 Tavia Wyatt MD [address] [place] [address] Dermatology 07/14/21 Johnny Murillo MD [address] [place] [address] Assigned Musculoskeletal Provider 08/30/21 03/17/22 Erica Farrell APRN CERTIFIED SOLID WASTE FACILITY OPERATOR [address] [facility] [address] [place] [id number] Nurse Practitioner Cardiovascular Disease 09/09/21 Teresita Bean, [facility] [address] [place] [address] Pharmacist Pharmacist 09/24/21 09/29/21 Tavia Wyatt MD Assigned Surgical Provider 11/29/21 05/07/22 Diana Desir, [facility] [address] [place] [address] Assigned MTM Pharmacist 01/02/22 Rich Barrett MD [address] [address] Physician Ophthalmology 01/21/22 Neil Kent MD [address] [place] [address] Dermatology 02/24/22 Roney Story DPM [address] [facility] [address] [place] [address] Assigned Musculoskeletal Provider 03/20/22 08/13/22 Erica Farrell APRN CERTIFIED SOLID WASTE FACILITY OPERATOR [facility] [place] [address] Assigned Heart and Vascular Provider 04/03/22 04/16/22 Diana Desir, [facility] [address] [place] [address] Assigned MTM Pharmacist 04/07/22 Jelena David OD [address] [facility] [place] [address] Assigned Surgical Provider 05/08/22 10/08/22 Galo Burrell MD Assigned Heart and Vascular Provider 04/17/22 06/11/22 Livan Sharif MD [address] [place] [address] Cardiovascular Disease 05/14/22 Livan Sharif MD [address] [place] [address] Assigned Heart and Vascular Provider 06/12/22 07/23/22 Catherine Cm MD [address] [place] [address] Cardiovascular Disease 07/21/22 Valery Veronica, PAUcheC [address] [place] [address] 804355 Physician Fire Captain Marine Dermatology 07/21/22 Catherine Cm MD [address] [facility] [address] [place] [address] Assigned Heart and Vascular Provider 07/24/22 11/05/22 Johnny Murillo MD [facility] 088674 Assigned Musculoskeletal Provider 08/14/22 10/08/22 Brea Quinn APRN CERTIFIED SOLID WASTE FACILITY OPERATOR [address] [place] [address] 627025 Nurse Practitioner Dermatology 09/21/22 Brea Quinn APRN CERTIFIED SOLID WASTE FACILITY OPERATOR [address] [place] [address] [place] 401132 Assigned Surgical Provider 10/09/22 [place] [address] [address] [place] [address] Assigned Musculoskeletal Provider 10/09/22 Livan Sharif MD [address] [place] 22[address] Assigned Heart and Vascular Provider 11/06/22 11/12/22 Catherine Cm MD [address] [place] 705135 Assigned Heart and Vascular Provider 11/13/22 05/27/23 Sydnie Martinez RN Personal Advocate & Liaison (PAL) Family Medicine 03/28/23 07/31/23 Alfonso Renteria MD [address] [facility] 200 [place], [place] [address] Assigned Neuroscience Provider 04/02/23 Cheng Todd PA-C [address] [place] [address] [phone] Assigned PCP 04/30/23 07/15/23 Radha Lomeli, ARLENE CERTIFIED SOLID WASTE FACILITY OPERATOR [address] [place] 298595 Assigned Heart and Vascular Provider 05/28/23 Jelena David OD [address] [facility] [place] [address] Ophthalmology 06/15/23 Pao Joseph, RN Personal Advocate & Liaison (PAL) Nurse 08/01/23 11/07/23 Esha Grimm PA-C [address] [place] [phone] Assigned PCP 07/16/23 Valery Veronica PA-C [address] [place] [address] 657175 Physician Fire Captain Marine Dermatology 09/19/23 Rey Tay MD [address] [place] [address] [phone] MD Gastroenterology 09/20/23 Rocky Zepeda DO [address] [place] [address] 065795 Physician Gastroenterology 09/20/23 Philip [place] MD [address] [place] [address] [phone] Physician Ophthalmology 09/22/23 Meredith Carrera PA-C [address] [place] [address] 232385 Assigned Gastroenterology Provider 11/01/23 Neil Kent MD [address] [address] Dermatology 11/02/23 [place] [address] [place] [address] Neurological Surgery 12/26/23 Audrey Waite PA-C 500 [place] [address] Physician Fire Captain Marine Dermatology 02/28/24 documented as of this encounter
--- OUTSIDE RECORDS SUMMARY | 2024-03-23 16:08 | XMS_ITS | Encounter Summary ---
Author Organization [facility] Address [address] [place] [address] Care Team Providers Care Aircraft Motor Mechanic Name Role Phone Lita Oseguera Unavailable Unavailable Rakesh Cid PA-C Unavailable Marija Edgar PERMANENT WAVER CHAINSTITCH ELASTIC ATTACHER Primary Care Provider + Chanelle Mccann PERMANENT WAVER CNM Unavailab le Lesley Moody CHW Unavailable Kyara De La Fuente RN Unavailable [phone] Marija Edgar APRN CHAINSTITCH ELASTIC ATTACHER Unavailable Mynor Broussard MD Unavailable [phone] Keisha Dotson MD Unavailable Mary Mejia Unavailable Unavailable Stacey Briones ANIMAL CARE SPECIALIST Unavailable Lesley Moody CHW Unavailable Mary Mejia Unavailable Unavailable Lita Oseguera Unavailable Unavailable Galo Burrell MD Unavailable Unavailable Cristina Wood Unavailable Lesley Moody CHW Unavailable Meredith Bedoya Unavailable Unavailable Cristina Wood Unavailable DesirDiana [facility] Unavailable [phone] Rain Galaviz PA-C Unavailable [phone] Summer Lara MD Unavailable [phone] Summer Lara MD Unavailable [phone] Summer Lara MD Unavailable [phone] Tavia Wyatt MD Unavailable Unavailable Johnny Murillo MD Unavailable [phone] Erica Farrell PERMANENT WAVER CHAINSTITCH ELASTIC ATTACHER Unavailable Vikas Teresita Jesus Walter [facility] Unavailable Tavia Wyatt MD Unavailable Unavailable Diana Desir [facility] Unavailable [phone] Rich Barrett MD Unavailable [phone] eNil Kent MD Unavailable Roney Story DPM Unavailable Erica Farrell PERMANENT WAVER CHAINSTITCH ELASTIC ATTACHER Unavailable Diana Desir [facility] Unavailable [phone] Jelena David OD Unavailable Galo Burrell MD Unavailable Unavailable Livan Sharif MD Unavailable + Livan Sharif MD Unavailable + Catherine Cm MD Unavailable + Valery Veronica PA-C Unavailable [phone] Catherine Cm MD Unavailable + Johnny Murillo MD Unavailable [phone] Brea Quinn PERMANENT WAVER CHAINSTITCH ELASTIC ATTACHER Unavailable [phone] Brea Quinn PERMANENT WAVER CHAINSTITCH ELASTIC ATTACHER Unavailable [phone] Jose Francisco Johnson MD Unavailable Livan Sharif MD Unavailable Catherine Cm MD Unavailable + Sydnie Martinez RN Unavailable Unavailable Alfonso Renteria MD Unavailable [phone] Esha Grimm PA-C Primary Care Provider Cheng Todd PA-C Unavailable Radha Lomeli APRN CHAINSTITCH ELASTIC ATTACHER Unavailable Jelena David OD Unavailable Pao Joseph RN Unavailable Unavailable Esha Grimm PA-C Unavailable [phone] Valery Veronica PA-C Unavailable Rey Tay MD Unavailable Rocky Zepeda DO Unavailable Philip Dumont MD Unavailable [phone] Meredith Carrera PA-C Unavailable [phone] Neil Kent MD Unavailable Juan Pablo Emmanuel MD Unavailable [phone] Audrey Waite PA-C Unavailable [phone] Encounter Details Date Type Department Care Team (Late st Contact Info) Description 05/23/2020 MyC Medical Advice [address] [address] Marija Edgar APRN CHAINSTITCH ELASTIC ATTACHER [address] [place] [address] Social History Tobacco Use Types Packs/Day [...] COVID-19? No / Unsure 05/12/2020 9:03 AM GENERAL TECHNICIAN documented as of this encounter Plan of Treatment Upcoming Encounters Date Type Department Care Team (Late st Contact Info) Description 03/26/2024 11:20 AM CDT Office Visit [facility] [address] [place] [address] [address] [place] [address] Ebony Cid, PERMANENT WAVER [facility] [address] [place], [place] [address] 03/27/2024 11:00 AM CDT Office Visit [facility] [address] [facility] [address] [place] [phone] Jelena David, [address] [facility] [place] [address] 03/29/2024 3:30 PM CDT Therapy Visit [address] [place] [address] Ingris Thompson, PT [facility] [address] [place] [address] 04/05/2024 2:10 PM CDT Therapy Visit [address] [place] [address] Ingris Thompson, PT [facility] [address] [place] [address] 04/19/2024 2:45 PM CDT Office Visit [address] [phone] Audrey Waite PA-C [address], [facility] [address] [place], [place] [address] 05/08/2024 1:30 PM CDT Office Visit [facility] [address] [place] [address] Lauren Claudio PA-C [address] [place] [address] Esha Grimm PA-C [address] [place] [address] 06/21/2024 2:00 PM GENERAL TECHNICIAN Office Visit [facility] - [address], [address] [place] [address] [place] [address] [place], [place] [phone] Johnny Penn MD [address] [place], [place] [address] documented as of this encounter Visit Diagnoses Not on filedocumented in this encounter Additional Health Concerns Infection Onset Date Last Indicated Resolved Time Rule Out COVID-19 07/30/2020 07/30/2020 07/30/2020 7:11 PM GENERAL TECHNICIAN Rule Out COVID-19 08/30/2020 08/30/2020 08/30/2020 5:05 PM GENERAL TECHNICIAN Rule Out COVID-19 09/24/2020 09/24/2020 09/24/2020 9:24 AM CDT Rule Out COVID-19 11/05/2020 11/05/2020 11/06/2020 1:09 PM CDT Rule Out COVID-19 05/11/2021 05/11/2021 05/13/2021 10:18 AM CDT Rule Out COVID-19 07/13/2021 07/13/2021 07/14/2021 3:04 PM GENERAL TECHNICIAN Rule Out COVID-19 07/18/2021 07/18/2021 07/20/2021 1:56 PM GENERAL TECHNICIAN COVID-19 07/18/2021 07/18/2021 08/08/2021 11:3 9 PM GENERAL TECHNICIAN Rule Out COVID-19 12/18/2021 12/18/2021 12/19/2021 11:34 AM CDT Rule Out COVID-19 02/24/2022 02/24/2022 02/25/2022 1:08 PM CDT Rule Out COVID-19 04/26/2022 04/26/2022 04/26/2022 6:47 AM CDT Rule Out COVID-19 05/17/2022 05/17/2022 05/17/2022 10:20 PM GENERAL TECHNICIAN Rule Out COVID-19 06/09/2022 06/09/2022 06/09/2022 9:35 AM GENERAL TECHNICIAN COVID-19 06/09/2022 06/09/2022 06/30/2022 11:4 1 PM GENERAL TECHNICIAN Rule Out COVID-19 11/10/2022 11/10/2022 11/11/2022 12:17 PM CDT Rule Out COVID-19 03/07/2023 03/07/2023 03/07/2023 1:20 PM CDT Rule Out COVID-19 12/26/2023 12/26/2023 12/26/2023 9:50 AM CDT Assessment Noted Time PHQ-9 Depression Total Score: 6 08/28/19 7:05 AM GENERAL TECHNICIAN documented as of this encounter Care Teams Aircraft Motor Mechanic Relationship Specialty Start Date End Date Marija Edgar APRN CHAINSTITCH ELASTIC ATTACHER [address] [place] [address] PCP - General Nurse Practitioner 04/30/20 04/14/23 Esha Grimm PA-C [address] [place] [phone] PCP - General Family Medicine 05/04/23 Lita Oseguera Personal Advocate & Liaison (PAL) 02/28/20 03/27/23 Rakesh Cid PA-C [address] [place] [address] Assigned PCP 03/02/20 06/07/20 Chanelle Mccann APRN CNM [address] [place] [address] 200 [place] [address] Assigned OBGYN Provider 05/02/2005/09 Lesley Moody, CHW Community Health Worker 05/30/2005/12 Kyara De La Fuente, RN Specialty Integration Solution Architect Neurology 06/04/20 03/05/21 Marija Edgar APRN CHAINSTITCH ELASTIC ATTACHER [address] [place] [address] Assigned PCP 06/08/20 04/29/23 Mynor Broussard MD [address] [facility] 500 [place], [place] [address] Assigned Surgical Provider 06/01/20 11/28/21 Keisha Dotson MD [address] [place], [place] [phone] Assigned Neuroscience Provider 06/04/20 04/01/23 Chico Mejiara Financial Resource Worker 08/07/20 08/21/20 Stacey Briones, [facility] Lead Integration Solution Architect Primary Care - CC 08/11/2012/30 Lesley Moody, [facility] Community Health Worker 08/11/2010/01 Jackie Mary Financial Resource Worker 09/02/20 10/06/20 Lita Oseguera Personal Advocate & Liaison (PAL) Family Medicine 09/10/20 09/21/20 Galo Burrell MD Assigned Heart and Vascular Provider 10/05/20 04/02/22 Cristina Wood Financial Resource Worker 10/07/20 10/14/20 Lesley Moody, [facility] Community Health Worker 10/23/2012/30 Meredith Bedoya Financial Resource Worker 10/23/20 11/23/20 Cristina Wood Financial Resource Worker 02/09/21 02/09/21 Diana Desir, [facility] [address] [place], [place] [address] Pharmacist Pharmacist 04/17/21 Rain Galaviz PA-C [address] [place] [address] [address] [place], [place] [phone] Physician Product Marketing Manager Dermatology 04/28/21 Summer Lara MD [address] [place] [address] Assigned OBGYN Provider 05/10/2105/23 Summer Lara MD [address] [place] [address] Assigned OBGYN Provider 05/31/21 Summer Lara MD [address] [place] [address] Assigned OBGYN Provider 05/24/2105/30 Tavia Wyatt MD [address] [place] [address] [facility] 07/14/21 Johnny Murillo MD [address] [place] [address] Assigned Musculoskeletal Provider 08/30/21 03/17/22 Erica Farrell APRN CHAINSTITCH ELASTIC ATTACHER [address] [facility] [address] [place] [address] Nurse Practitioner Cardiovascular Disease 09/09/21 Teresita Bean, [facility] [address] [place] [address] Pharmacist Pharmacist 09/24/21 09/29/21 Tavia Wyatt MD Assigned Surgical Provider 11/29/21 05/07/22 Diana Desir, [facility] [address] [place] [address] Assigned MTM Pharmacist 01/02/22 Rich Barrett MD [address] [facility] [address] [place] [address] Physician Ophthalmology 01/21/22 Neil Kent MD [address] [place] [address] Dermatology 02/24/22 Roney Story DPM [address] [facility] [address] [place] [address] Assigned Musculoskeletal Provider 03/20/22 08/13/22 Erica Farrell APRN CHAINSTITCH ELASTIC ATTACHER [address] [place] [address] Assigned Heart and Vascular Provider 04/03/22 04/16/22 Diana Desir, [facility] [address] [place] [address] Assigned MTM Pharmacist 04/07/22 Jelena David OD [address] [facility] [address] Assigned Surgical Provider 05/08/22 10/08/22 Galo Burrell MD Assigned Heart and Vascular Provider 04/17/22 06/11/22 Livan Sharif MD [address] [place] [address] Cardiovascular Disease 05/14/22 Livan Sharif MD [address] [place] [address] Assigned Heart and Vascular Provider 06/12/22 07/23/22 Catherine Cm MD [address] [place] [address] Cardiovascular Disease 07/21/22 Valery Veronica, PA-C [address] [place] [address] Physician Product Marketing Manager Dermatology 07/21/22 Catherine Cm MD [address] [facility] [address] [place] [address] Assigned Heart and Vascular Provider 07/24/22 11/05/22 Johnny Murillo MD [address] [place] [address] [id number] Assigned Musculoskeletal Provider 08/14/22 10/08/22 Brea Quinn APRN CHAINSTITCH ELASTIC ATTACHER [address] [place] [address]255 Nurse Practitioner Dermatology 09/21/22 Brea Quinn APRN CHAINSTITCH ELASTIC ATTACHER [address] [place] [address] [place] [address] Assigned Surgical Provider 10/09/22 [place] [address] [place] [address] [address] Assigned Musculoskeletal Provider 10/09/22 Livan Sharif MD [address] [place] [address] Assigned Heart and Vascular Provider 11/06/22 11/12/22 Catherine Cm MD [address] [place] [address] Assigned Heart and Vascular Provider 11/13/22 05/27/23 Sydnie Martinez RN Personal Advocate & Liaison (PAL) Family Medicine 03/28/23 07/31/23 Alfonso Renteria MD [address] [facility] [address] [place] [address] Assigned Neuroscience Provider 04/02/23 Cheng Todd PA-C [address] [place] [place] [address] [id number] Assigned PCP 04/30/23 07/15/23 Radha Lomeli APRN CHAINSTITCH ELASTIC ATTACHER [address] [place] [address] Assigned Heart and Vascular Provider 05/28/23 Jelena David OD [address] [facility] [address] Ophthalmology 06/15/23 Pao Joseph, VJ Personal Advocate & Liaison (PAL) Nurse 08/01/23 11/07/23 Esha Grimm PA-C [address] [place] [address] Assigned PCP 07/16/23 Valery Veronica PA-C [address] [place], [place] [address] Physician Product Marketing Manager Dermatology 09/19/23 Rey Tay MD [address]09 [place] [address] Gastroenterology 09/20/23 Rocky Zepeda DO 500 [place] [address] Physician Gastroenterology 09/20/23 Philip Dumont MD 6 [place] [address] Physician Ophthalmology 09/22/23 Meredith Carrera PA-C 9 [place] [address] Assigned Gastroenterology Provider 11/01/23 Neil Kent MD [address] [address] Dermatology 11/02/23 [place] [address] [address] Neurological Surgery 12/26/23 Audrey Waite PA-C [address] [place] [address] Physician Product Marketing Manager Dermatology 02/28/24 documented as of this encounter
--- OUTSIDE RECORDS SUMMARY | 2024-03-23 16:08 | XMS_ITS | Encounter Summary ---
Author Organization [facility] Address [address] [place] [address] Care Team Providers Care Certified Orthotist Practice Manager Name Role Phone Lita Oseguera Unavailable Unavailable Marija Edgar APRN CALL CENTER TRAINER Primary Care Provider + Chanelle Mccann DRUM BUILDER CNM Unavailab le Kyara De La Fuente RN Unavailable [phone] Marija Edgar APRN CALL CENTER TRAINER Unavailable Mynor Broussard MD Unavailable [phone] Keisha Dotson MD Unavailable [phone] Mary Mejia Unavailable Unavailable Stacey Briones SAFETY EQUIPMENT TESTING SPECIALIST Unavailable Lesley Moody CHW Unavailable [phone] Mary Mejia Unavailable Unavailable Lita Oseguera Unavailable Unavailable Galo Burrell MD Unavailable Unavailable Cristina Wood Unavailable Lesley Moody CHW Unavailable Meredith Bedoya Unavailable Unavailable Cristina Wood Unavailable Diana Desir [facility] Unavailable [place], Rain Lena PA-C Unavailable Summer Lara MD Unavailable [phone] Summer Lara MD Unavailable [phone] Summer Lara MD Unavailable [phone] Tavia Wyatt MD Unavailable Unavailable SemJohnny mckeon MD Unavailable [phone] Erica Farrell APRN CALL CENTER TRAINER Unavailable + Vikas Teresita Watson H Unavailable Tavia Wyatt MD Unavailable Unavailable Diana Desir [facility] Unavailable [phone] Rich Barrett MD Unavailable [phone] Neil Kent MD Unavailable Roney Story DPM Unavailable [phone] Erica Farrell APRN CALL CENTER TRAINER Unavailable + Diana Desir [facility] Unavailable [phone] Jelena David Radha OD Unavailable Galo Burrell MD Unavailable Unavailable Livan Sharif MD Unavailable + Livan Sharif MD Unavailable + Catherine Cm MD Unavailable + Valery Veronica PA-C Unavailable [phone] Catherine Cm MD Unavailable + Johnny Murillo MD Unavailable +[phone] Brea Quinn APRN CALL CENTER TRAINER Unavailable [phone] Brea Quinn DRUM BUILDER CALL CENTER TRAINER Unavailable [phone] Jose Francisco Johnson MD Unavailable Livan Sharif MD Unavailable + Catherine Cm MD Unavailable + Sydnie Martinez RN Unavailable Unavailable Alfonso Renteria MD Unavailable [phone] Esha Grimm PA-C Primary Care Provider [phone] Cheng Todd PA-C Unavailable Radha Lomeli APRN CALL CENTER TRAINER Unavailable FrankieJelena OD Unavailable Pao Joseph RN Unavailable Unavailable Esha Grimm PA-C Unavailable [phone] Valery Veronica PA-C Unavailable Rey Tay MD Unavailable Rocky Zepeda DO Unavailable Philip Dumont MD Unavailable Meredith Carrera PA-C Unavailable [phone] Neil Kent MD Unavailable Juan Pablo Emmanuel MD Unavailable [phone] Audrey Waite PA-C Unavailable [phone] Encounter Details Date Type Department Care Team (Late st Contact Info) Description 07/10/2020 [facility] [place] [address] [place] [address] Mynor Broussard MD [address] [place], [place] [phone] Social History Tobacco Use Types Packs/Day Years [...] COVID-19? No / Unsure 06/24/2020 3:01 PM AERIAL GUNNER SUPERINTENDENT documented as of this encounter Plan of Treatment Upcoming Encounters Date Type Department Care Team (Late st Contact Info) Description 03/26/2024 11:20 AM CDT Office Visit [facility] Spine and Neurosurgery [address] [place] [address] Ebony Cid, [facility] [address] [place] [address] 03/27/2024 11:00 AM CDT Office Visit [facility] [address] [facility] [address] [place] [phone] Jelena David, [address] [facility] [place] [address] 03/29/2024 3:30 PM CDT Therapy Visit [facility] [address] [place] [address] [address] [place] [phone] Ingris Thompson, PT [facility] [address] [place] [address] 04/05/2024 2:10 PM CDT Therapy Visit [facility] [address] [place] [address] [address] [place] [phone] Ingris Thompson, PT [address] [address] 04/19/2024 2:45 PM CDT Office Visit [facility] [place] [place] [phone] Audrey Waite PA-C [address] [facility] [address], [facility] [address] [place], [place] [address] 05/08/2024 1:30 PM CDT Office Visit [facility] [address] [place] [address] Lauren Claudio PA-C [address] [place] [address] Esha Grimm PA-C [address] [place] [address] 06/21/2024 2:00 PM AERIAL GUNNER SUPERINTENDENT Office Visit [facility] Neurology Clinics - [address], [address] [place] [phone] [place] [address] [place] [address] Johnny Penn MD [address] [place], [place] [address] documented as of this encounter Visit Diagnoses Not on filedocumented in this encounter Additional Health Concerns Infection Onset Date Last Indicated Resolved Time Rule Out COVID-19 07/30/2020 07/30/2020 07/30/2020 7:11 PM AERIAL GUNNER SUPERINTENDENT Rule Out COVID-19 08/30/2020 08/30/2020 08/30/2020 5:05 PM AERIAL GUNNER SUPERINTENDENT Rule Out COVID-19 09/24/2020 09/24/2020 09/24/2020 9:24 AM CDT Rule Out COVID-19 11/05/2020 11/05/2020 11/06/2020 1:09 PM CDT Rule Out COVID-19 05/11/2021 05/11/2021 05/13/2021 10:18 AM CDT Rule Out COVID-19 07/13/2021 07/13/2021 07/14/2021 3:04 PM AERIAL GUNNER SUPERINTENDENT Rule Out COVID-19 07/18/2021 07/18/2021 07/20/2021 1:56 PM AERIAL GUNNER SUPERINTENDENT COVID-19 07/18/2021 07/18/2021 08/08/2021 11:3 9 PM AERIAL GUNNER SUPERINTENDENT Rule Out COVID-19 12/18/2021 12/18/2021 12/19/2021 11:34 AM CDT Rule Out COVID-19 02/24/2022 02/24/2022 02/25/2022 1:08 PM CDT Rule Out COVID-19 04/26/2022 04/26/2022 04/26/2022 6:47 AM CDT Rule Out COVID-19 05/17/2022 05/17/2022 05/17/2022 10:20 PM AERIAL GUNNER SUPERINTENDENT Rule Out COVID-19 06/09/2022 06/09/2022 06/09/2022 9:35 AM AERIAL GUNNER SUPERINTENDENT COVID-19 06/09/2022 06/09/2022 06/30/2022 11:4 1 PM AERIAL GUNNER SUPERINTENDENT Rule Out COVID-19 11/10/2022 11/10/2022 11/11/2022 12:17 PM CDT Rule Out COVID-19 03/07/2023 03/07/2023 03/07/2023 1:20 PM CDT Rule Out COVID-19 12/26/2023 12/26/2023 12/26/2023 9:50 AM CDT Assessment Noted Time PHQ-9 Depression Total Score: 9 06/25/20 20 7:04 AM AERIAL GUNNER SUPERINTENDENT documented as of this encounter Care Teams Certified Orthotist Practice Manager Relationship Specialty Start Date End Date Marija Edgar APRN CNP PCP - General Nurse Practitioner 04/30/20 04/14/23 Esha Grimm PA-C [address] [place] [phone] PCP - General Family Medicine 05/04/23 Ltia Oseguera Personal Advocate & Liaison (PAL) 02/28/20 03/27/23 Chanelle Mccann APRN CNM [address] [place] [address], [facility] [address] [place] [address] Assigned OBGYN Provider 05/02/2005/09 Kyara De La Fuente, RN Specialty Mounter Smoking Pipe Neurology 06/04/20 03/05/21 Marija Edgar APRN CALL CENTER TRAINER Assigned PCP 06/08/20 04/29/23 Mynor Broussard MD [address] [facility] 500 [place] [address] Assigned Surgical Provider 06/01/20 11/28/21 Keisha Dotson MD [address] [place] [address] Assigned Neuroscience Provider 06/04/20 04/01/23 Mary Mejia Financial Resource Worker 08/07/20 08/21/20 Stacey Briones, SAFETY EQUIPMENT TESTING SPECIALIST Lead Mounter Smoking Pipe Primary Care - CC 08/11/2012/30 Lesley Moody, W Community Health Worker 08/11/2010/01 Mary Mejia Financial Resource Worker 09/02/20 10/06/20 Lita Oseguera Personal Advocate & Liaison (PAL) Family Medicine 09/10/20 09/21/20 Galo Burrell MD Assigned Heart and Vascular Provider 10/05/20 04/02/22 Cristina Wood Financial Resource Worker 10/07/20 10/14/20 Lesley Moody, [facility] Community Health Worker 10/23/2012/30 Meredith Bedoya Financial Resource Worker 10/23/20 11/23/20 Cristina Wood Financial Resource Worker 02/09/21 02/09/21 Diana Desir, [facility] [address] [place] [address] Pharmacist Pharmacist 04/17/21 Rain Galaviz PA-C [address] [place] [address] [place] [address] Physician Glucose And Syrup Weigher Dermatology 04/28/21 Summer Lara MD [address] [place] [phone] Assigned OBGYN Provider 05/10/2105/23 Summer Lara MD [address] [place] [phone] Assigned OBGYN Provider 05/31/21 2 Summer Lara MD [address] [place] [address] 490524 Assigned OBGYN Provider 05/24/2105/30 Tavia Wyatt MD [address] [place] [address] Dermatology 07/14/21 Johnny Murillo MD [address] [place] [address] Assigned Musculoskeletal Provider 08/30/21 03/17/22 Erica Farrell APRN CALL CENTER TRAINER [address] [facility] [address] [place] [address] Nurse Practitioner Cardiovascular Disease 09/09/21 Teresita Bean, [facility] [address] [phone] Pharmacist Pharmacist 09/24/21 09/29/21 Tavia Wyatt MD Assigned Surgical Provider 11/29/21 05/07/22 [facility] [address] [place] [address] Assigned MTM Pharmacist 01/02/22 Rich Barrett MD [address] [facility] [address] [place] [address] Physician Ophthalmology 01/21/22 Neil Kent MD [address] [place] [address] Dermatology 02/24/22 Roney Story DPM [address] [facility] [address] [place], [place] [phone] Assigned Musculoskeletal Provider 03/20/22 08/13/22 Erica Farrell APRN CALL CENTER TRAINER [address] [place] [address] Assigned Heart and Vascular Provider 04/03/22 04/16/22 Diana Desir, [facility] [address] [place] [address] Assigned MTM Pharmacist 04/07/22 Jelena David OD [address] [facility] [place] [address] Assigned Surgical Provider 05/08/22 10/08/22 Galo Burrell MD Assigned Heart and Vascular Provider 04/17/22 06/11/22 Livan Sharif MD [address] [place] [address] Cardiovascular Disease 05/14/22 Livan Sharif MD [address] [place] [address] Assigned Heart and Vascular Provider 06/12/22 07/23/22 Catherine Cm MD [address] [place] [address] Cardiovascular Disease 07/21/22 Valery Veronica, [facility] [address] [place] [address] Physician Glucose And Syrup Weigher Dermatology 07/21/22 Catherine Cm MD [address] [place] [address] Assigned Heart and Vascular Provider 07/24/22 11/05/22 Johnny Murillo MD [address] 170[address] Assigned Musculoskeletal Provider 08/14/22 10/08/22 Brea Quinn APRN CALL CENTER TRAINER [address] [place] [phone] Nurse Practitioner Dermatology 09/21/22 Brea Quinn APRN CALL CENTER TRAINER [facility] [place] [id number] Assigned Surgical Provider 10/09/22 [place] [address] 6[address] Assigned Musculoskeletal Provider 10/09/22 Livan Sharif MD [address], [facility] [address] [place] [address] Assigned Heart and Vascular Provider 11/06/22 11/12/22 Catherine Cm MD [address] [facility] [address] [place] [address] Assigned Heart and Vascular Provider 11/13/22 05/27/23 JuanSydnie malik RN Personal Advocate & Liaison (PAL) Family Medicine 03/28/23 07/31/23 Alfonso Renteria MD [address] [facility] [address] [place], [place] [address] Assigned Neuroscience Provider 04/02/23 Cheng Todd PA-C [address] [place] [address] Assigned PCP 04/30/23 07/15/23 Radha Lomeli APRN CALL CENTER TRAINER [address] [facility] [address] [place] [address] Assigned Heart and Vascular Provider 05/28/23 Jelena David OD [address] [facility] [place] [address] Ophthalmology 06/15/23 Pao Joseph, VJ Personal Advocate & Liaison (PAL) Nurse 08/01/23 11/07/23 Esha Grimm PA-C [address] [place] [phone] Assigned PCP 07/16/23 Valery Veronica PA-C [address] [place] [phone] Physician Glucose And Syrup Weigher Dermatology 09/19/23 Rey Tay MD [address] [place] [address] [phone] Gastroenterology 09/20/23 Rocky Zepeda DO [address] [place] [address] 988335 Physician Gastroenterology 09/20/23 Philip Dumont MD [address] [place] [address]395 Physician Ophthalmology 09/22/23 Meredith Carrera PA-C [address] [place], [place] [address] Assigned Gastroenterology Provider 11/01/23 Neil Kent MD [address] [address] Dermatology 11/02/23 [place] [address] [phone] Neurological Surgery 12/26/23 Audrey Waite PA-C [address] [place], [place] 36[address] Physician Glucose And Syrup Weigher Dermatology 02/28/24 documented as of this encounter
--- OUTSIDE RECORDS SUMMARY | 2024-03-23 16:08 | XMS_ITS | Encounter Summary ---
Author Organization [facility] Address [address] [place] [address] Care Team Providers Care Plug Drill Operator Name Role Phone Rakesh Cid PA-C Primary Care Provider Lita Oseguera Unavailable Unavailable Rakesh Cid PA-C Unavailable [phone] Lita Oseguera Unavailable Unavailable Marija Edgar APRN CURER ACID DRUM Primary Care Provider + Chanelle Mccann APRN CNM Unavailab le Lesley Moody CHW Unavailable [phone] Kyara De La Fuente RN Unavailable [phone] Marija Edgar APRN CURER ACID DRUM Unavailable [phone] Mynor Broussard MD Unavailable [phone] Keisha Dotson MD Unavailable [phone] Mary Mejia Unavailable Unavailable Stacey Briones FINANCIAL OPERATIONS CONSULTANT Unavailable [phone] Lesley Moody CHKamryn Unavailable [phone] Mary Mejia Unavailable Unavailable Lita Oseguera Unavailable Unavailable Galo Burrell MD Unavailable Unavailable Cristina Wood Unavailable Lesley Moody [facility] Unavailable Meredith Bedoya Unavailable Unavailable Cristina Wood Unavailable [facility] Unavailable [phone] Rain Galaviz PA-C Unavailable Summer Lara MD Unavailable [phone] Summer Lara MD Unavailable [phone] Summer Lara MD Unavailable [phone] Tavia Wyatt MD Unavailable Unavailable Johnny Murillo MD Unavailable [phone] Eirca Farrell APRN CURER ACID DRUM Unavailable [facility] Unavailable Tavia Wyatt MD Unavailable Unavailable [facility] Unavailable [phone] Rich Barrett MD Unavailable Neil Kent MD Unavailable Roney Story DPM Unavailable Erica Farrell APRN CURER ACID DRUM Unavailable [facility] Unavailable [phone] Jelena David Unavailable Galo Burrell MD Unavailable Unavailable Livan Sharif MD Unavailable Livan Sharif MD Unavailable + Catherine Cm MD Unavailable + Valery Veronica-C Unavailable [phone] Catherine Cm MD Unavailable + Johnny Murillo MD Unavailable [phone], Brea P SUPERVISOR SCRAP PREPARATION CURER ACID DRUM Unavailable [phone] CheyenneBrea Jama SUPERVISOR SCRAP PREPARATION CURER ACID DRUM Unavailable Jose Francisco Johnson MD Unavailable Livan Sharif MD Unavailable Catherine Cm MD Unavailable + Sydnie Martinez RN Unavailable Unavailable Alfonso Renteria MD Unavailable [phone] Esha Grimm PA-C Primary Care Provider Cheng Todd PA-C Unavailable Armani Radha Sia SUPERVISOR SCRAP PREPARATION CURER ACID DRUM Unavailable Frankie Jelena Garcia OD Unavailable [phone] Pao Joseph RN Unavailable Unavailable Esha Grimm PA-C Unavailable [phone] Valery Veronica PA-C Unavailable [phone] Rey Tay MD Unavailable Rocky Zepeda DO Unavailable Philip Dumont MD Unavailable [phone] Meredith Carrera PA-C Unavailable Neil Kent MD Unavailable Juan Pablo Emmanuel MD Unavailable Audrey Waite PA-C Unavailable Encounter Details Date Type Department Care Team (Late st Contact Info) Description 04/28/2020 [facility] [address] [address] Rakesh Cid PA-C [address] [place] [address] Social History Tobacco Use Types [...] Description 03/26/2024 11:20 AM CDT Office Visit [facility] Spine and Neurosurgery [address] [place] [address] [address] [place] [address] Eboyn Cid, SUPERVISOR SCRAP PREPARATION [facility] [address] [place] [address] 03/27/2024 11:00 AM CDT Office Visit [facility] [address] [facility] [address] [place] [phone] Jelena David, [address] [facility] [place] [address] 03/29/2024 3:30 PM CDT Therapy Visit [facility] [address] [place] [address] [address] [place] [address] Ingris Thompson, PT [facility] [address] [place] [address] [address] [place] [address] 04/05/2024 2:10 PM CDT Therapy Visit [facility] [address] [facility] [address] [place] [address] Ingris Thompson, PT [facility] [address] [facility] [address] [place], [place] [address] 04/19/2024 2:45 PM CDT Office Visit [facility] [address] [place] [phone] Audrey Waite PA-C [address], [facility] [address] [place] [address] 05/08/2024 1:30 PM CDT Office Visit [facility] [address] [place] [phone] Lauren Claudio PA-C [address] [place], [place] [phone] Esha Grimm PA-C [address] [place] [phone] 06/21/2024 2:00 PM TOLL GATE KEEPER Office Visit [facility] Neurology Clinics - [address], [address] [place] [phone] [place] [address] [place] [employer], [place] [phone] Johnny Penn MD [address] [place] [address] [phone] documented as of this encounter Visit Diagnoses Not on filedocumented in this encounter Additional Health Concerns Infection Onset Date Last Indicated Resolved Time Rule Out COVID-19 07/30/2020 07/30/2020 07/30/2020 7:11 PM TOLL GATE KEEPER Rule Out COVID-19 08/30/2020 08/30/2020 08/30/2020 5:05 PM TOLL GATE KEEPER Rule Out COVID-19 09/24/2020 09/24/2020 09/24/2020 9:24 AM CDT Rule Out COVID-19 11/05/2020 11/05/2020 11/06/2020 1:09 PM CDT Rule Out COVID-19 05/11/2021 05/11/2021 05/13/2021 10:18 AM CDT Rule Out COVID-19 07/13/2021 07/13/2021 07/14/2021 3:04 PM TOLL GATE KEEPER Rule Out COVID-19 07/18/2021 07/18/2021 07/20/2021 1:56 PM TOLL GATE KEEPER COVID-19 07/18/2021 07/18/2021 08/08/2021 11:3 9 PM TOLL GATE KEEPER Rule Out COVID-19 12/18/2021 12/18/2021 12/19/2021 11:34 AM CDT Rule Out COVID-19 02/24/2022 02/24/2022 02/25/2022 1:08 PM CDT Rule Out COVID-19 04/26/2022 04/26/2022 04/26/2022 6:47 AM CDT Rule Out COVID-19 05/17/2022 05/17/2022 05/17/2022 10:20 PM TOLL GATE KEEPER Rule Out COVID-19 06/09/2022 06/09/2022 06/09/2022 9:35 AM TOLL GATE KEEPER COVID-19 06/09/2022 06/09/2022 06/30/2022 11:4 1 PM TOLL GATE KEEPER Rule Out COVID-19 11/10/2022 11/10/2022 11/11/2022 12:17 PM CDT Rule Out COVID-19 03/07/2023 03/07/2023 03/07/2023 1:20 PM CDT Rule Out COVID-19 12/26/2023 12/26/2023 12/26/2023 9:50 AM CDT Assessment Noted Time PHQ-9 Depression Total Score: 12 020 2:40 PM CDT documented as of this encounter Care Teams Plug Drill Operator Relationship Specialty Start Date End Date Rakesh Cid PA-C PCP - General Physician Stock Or Delivery Clerk - Medical 05/14/19 04/29/20 Marija Edgar APRN CURER ACID DRUM [address] [place] [address] PCP - General Nurse Practitioner 04/30/20 04/14/23 Esha Grimm PA-C [address] [place] [phone] PCP - General Family Medicine 05/04/23 Lita Oseguera Personal Advocate & Liaison (PAL) 02/28/20 03/27/23 Rakesh Cid PA-C [address] [place] [id number] Assigned PCP 03/02/20 06/07/20 Lita Oseguera Personal Advocate & Liaison (PAL) 04/07/20 04/29/20 Chanelle Mccann APRN CNM [address] [facility], [facility] [address] [place] [address] Assigned OBGYN Provider 05/02/2005/09 Lesley Moody, CHW Community Health Worker 05/30/2005/12 Kyara De La Fuente, RN Specialty Pit Supervisor Neurology 06/04/20 03/05/21 Marija Edgar APRN CURER ACID DRUM [address] [place] [address] Assigned PCP 06/08/20 04/29/23 Mynor Broussard MD [address] [id number] Assigned Surgical Provider 06/01/20 11/28/21 Keisha Dotson MD [address] [place] [address] Assigned Neuroscience Provider 06/04/20 04/01/23 Mary Mejia Financial Resource Worker 08/07/20 08/21/20 Stacey Briones, [facility] Lead Pit Supervisor Primary Care - CC 08/11/2012/30 Lesley Moody, [facility] Community Health Worker 08/11/2010/01 Mary Mejia Financial Resource Worker 09/02/20 10/06/20 Lita Oseguera Personal Advocate & Liaison (PAL) Family Medicine 09/10/20 09/21/20 Galo Burrell MD Assigned Heart and Vascular Provider 10/05/20 04/02/22 Cristina Wood Financial Resource Worker 10/07/20 10/14/20 Lesley Moody, [facility] Community Health Worker 10/23/2012/30 Meredith Bedoya Financial Resource Worker 10/23/20 11/23/20 Cristina Wood Financial Resource Worker 02/09/21 02/09/21 Diana Desir, [facility] [address] [place] [address] Pharmacist Pharmacist 04/17/21 Rain Galaviz PA-C [address] [place] [address] [address] [facility] [place] [address] Physician Stock Or Delivery Clerk Dermatology 04/28/21 Summer Lara MD [address] [place] [address] Assigned OBGYN Provider 05/10/2105/23 Summer Lara MD [address] [place] [address] Assigned OBGYN Provider 05/31/21 Summer Lara MD [address] [place] [address] Assigned OBGYN Provider 05/24/2105/30 Tavia Wyatt MD [address] [place] [address] Dermatology 07/14/21 Johnny Murillo MD [address] [place] [address] Assigned Musculoskeletal Provider 08/30/21 03/17/22 Erica Farrell APRN CURER ACID DRUM [address] [facility] [address] [place] [address] Nurse Practitioner Cardiovascular Disease 09/09/21 Teresita Bean, [facility] [address] [place] [id number] Pharmacist Pharmacist 09/24/21 09/29/21 Tavia Wyatt MD Assigned Surgical Provider 11/29/21 05/07/22 Diana Desir, [facility] [address] [place] [address] Assigned MTM Pharmacist 01/02/22 Rich Barrett MD [address] 659145 Physician Ophthalmology 01/21/22 Neil Kent MD [address] [place], [place] [address] Dermatology 02/24/22 Roney Story DPM [address] [facility] [address] [place] [address] Assigned Musculoskeletal Provider 03/20/22 08/13/22 Erica Farrell APRN CURER ACID DRUM [address] [place] [address] Assigned Heart and Vascular Provider 04/03/22 04/16/22 Diana Desir, [facility] [address] [place] [address] Assigned MTM Pharmacist 04/07/22 Jelena David OD [address] [facility] [id number] Assigned Surgical Provider 05/08/22 10/08/22 Galo Burrell MD Assigned Heart and Vascular Provider 04/17/22 06/11/22 Livan Sharif MD [address], [facility] [address] [place] [address] Cardiovascular Disease 05/14/22 Livan Sharif MD [address], [place] [address] [address] Assigned Heart and Vascular Provider 06/12/22 07/23/22 Catherine Cm MD [address] [place] [address] Cardiovascular Disease 07/21/22 Valery Veronica, PAUcheC [address] [place] [address] Physician Stock Or Delivery Clerk Dermatology 07/21/22 Catherine Cm MD [address] [facility] [address] [place] [address] Assigned Heart and Vascular Provider 07/24/22 11/05/22 Johnny Murillo MD [address] [place] [address] 455684 Assigned Musculoskeletal Provider 08/14/22 10/08/22 Brea Quinn APRN CURER ACID DRUM [address] [place] [address] Nurse Practitioner Dermatology 09/21/22 Brea Quinn APRN CURER ACID DRUM [address] [place] [address] [place] [id number] Assigned Surgical Provider 10/09/22 [place] [address] [facility] [address] [place] [address] Assigned Musculoskeletal Provider 10/09/22 Livan Sharif MD [address], [facility] [address] [place] [address] Assigned Heart and Vascular Provider 11/06/22 11/12/22 Catherine Cm MD [address] [place] [address] [place] [address] Assigned Heart and Vascular Provider 11/13/22 05/27/23 Sydnie Martinez RN Personal Advocate & Liaison (PAL) Family Medicine 03/28/23 07/31/23 Alfonso Renteria MD [address] [facility] [address] [place] [address] Assigned Neuroscience Provider 04/02/23 Cheng Todd PA-C [address] [place] [address] Assigned PCP 04/30/23 07/15/23 Radha Lomeli APRN CURER ACID DRUM [address] [place] [id number] Assigned Heart and Vascular Provider 05/28/23 Jelena David OD [facility] [facility] [place] [address] Ophthalmology 06/15/23 Pao Joseph, VJ Personal Advocate & Liaison (PAL) Nurse 08/01/23 11/07/23 Esha Grimm PA-C [address] [place] [address] Assigned PCP 07/16/23 Valery Veronica PA-C [address] [place] [address] 669845 Physician Stock Or Delivery Clerk Dermatology 09/19/23 Rey Tay MD [address] [place] [address] MD Gastroenterology 09/20/23 Rocky Zepeda DO [address] [place] [address] 013265 Physician Gastroenterology 09/20/23 Philip Dumont MD [address] [place] [address] [phone] Physician Ophthalmology 09/22/23 Meredith Carrera PA-C [address] [place] [address] Assigned Gastroenterology Provider 11/01/23 Neil Kent MD [address] [address] Dermatology 11/02/23 [place] [address] [place] [id number] Neurological Surgery 12/26/23 Audrey Waite PA-C [address] [place] [address] 347655 Physician Stock Or Delivery Clerk Dermatology 02/28/24 documented as of this encounter
--- OUTSIDE RECORDS SUMMARY | 2024-03-23 16:08 | XMS_ITS | Encounter Summary ---
Author Organization [employer] [facility] Address [address] [place] [address] Care Team Providers Care Surveyor Instrument Assistant Name Role Phone Lita Oseguera Unavailable Unavailable Marija Edgar APRN COLLARETTE SEPARATOR Primary Care Provider + Chanelle Mccann ENVELOPE CUTTER CNM Unavailab le Kyara De La Fuente RN Unavailable [phone] Marija Edgar APRN COLLARETTE SEPARATOR Unavailable [phone] Mynor Broussard MD Unavailable [phone] Keisha Dotson MD Unavailable Mary Mejia Unavailable Unavailable Stacey Briones CHALK MACHINE OPERATOR Unavailable [phone] Lesley Moody CHW Unavailable [phone] Mary Mejia Unavailable Unavailable Lita Oseguera Unavailable Unavailable Galo Burrell MD Unavailable Unavailable Cristina Wood Unavailable Lesley Moody CHW Unavailable Meredith Bedoya Unavailable Unavailable Cristina Wood Unavailable Diana Desir [facility] Unavailable [phone] Ruhland, Rain Lena PA-C Unavailable Summer Lara MD Unavailable [phone] Summer Lara MD Unavailable +[phone] Summer Lara MD Unavailable [phone] Tavia Wyatt MD Unavailable Unavailable SemJohnny mckeon MD Unavailable [phone] Erica Farrell APRN COLLARETTE SEPARATOR Unavailable + Vikas Teresita Watson H Unavailable Tavia Wyatt MD Unavailable Unavailable Diana Desir [facility] Unavailable [phone] Rich Barrett MD Unavailable [phone] Neil Kent MD Unavailable Roney Story DPM Unavailable [phone] Erica Farrell APRN COLLARETTE SEPARATOR Unavailable + Diana Desir [facility] Unavailable [phone] Jelena David Radha OD Unavailable Galo Burrell MD Unavailable Unavailable Livan Sharif MD Unavailable + Livan Sharif MD Unavailable + Catherine Cm MD Unavailable + Valery Veronica PA-C Unavailable [phone] Catherine Cm MD Unavailable + Johnny Murillo MD Unavailable +[phone] Brea Quinn APRN COLLARETTE SEPARATOR Unavailable [phone] Brea Quinn EN[facility]ELOPE CUTTER COLLARETTE SEPARATOR Unavailable [phone] Jose Francisco Johnson MD Unavailable Livan Sharif MD Unavailable + Catherine Cm MD Unavailable + Sydnie Martinez RN Unavailable Unavailable Alfonso Renteria MD Unavailable [phone] Esha GrimmC Primary Care Provider [phone] Cheng Todd PA-C Unavailable Radha Lomeli APRN COLLARETTE SEPARATOR Unavailable [phone] FrankieJelena OD Unavailable Pao Joseph RN Unavailable Unavailable Esha GrimmC Unavailable [phone] Valery Veronica-C Unavailable [phone] Rey Tay MD Unavailable Rocky Zepeda DO Unavailable Philip Dumont MD Unavailable [phone] Meredith Carrera-C Unavailable [phone] Neil Kent MD Unavailable Juan Pablo Emmanuel MD Unavailable [phone] Audrey Waite-C Unavailable [phone] Reason for Visit * Reason Comments Medication Refill Encounter Details Date Type Department Care Team (Late st Contact Info) Description 07/14/[address] [address] Rakesh Cid PA-C [address] [place] [address] Medication Refill Social History Tobacco [...] COVID-19? No / Unsure 06/24/2020 3:01 PM BRANCH OFFICE ADMINISTRATOR documented as of this encounter Miscellaneous Notes * Telephone Encounter - Estephania Black RN - 07/16/2020 11:38 AM BRANCH OFFICE ADMINISTRATOR Routing refill request to provider for review/approval because: Labs out of range: PHQ9> 4 patient was seen 3 weeks ago. Estephania Black RN Flex CH OFFICE ADMINISTRATOR * Telephone Encounter - Brea Perry RN - 07/16/2020 11:34 AM BRANCH OFFICE ADMINISTRATOR Routing to correct clinic. CH OFFICE ADMINISTRATOR documented in this encounter Plan of Treatment Upcoming Encounters Date Type Department Care Team (Late st Contact Info) Description 03/26/2024 11:20 AM CDT Office Visit [facility] [address] [place] [address] [address] [place] [address] Ebony Cid, ENVELOPE CUTTER [facility] [address] [place] [address] 03/27/2024 11:00 AM CDT Office Visit [facility] [place] [address] [facility] [address] [place] [phone] Jelena David, [address] [facility] [place] [address] 03/29/2024 3:30 PM CDT Therapy Visit [facility] [address] [place] [phone] Ingris Thompson, PT [facility] 6 [facility] [address] [place], [place] [address] 04/05/2024 2:10 PM CDT Therapy Visit [facility] [place] [address] [facility] [address] [place] [address] Ingris Thompson, PT [facility] 6 [facility] [address] [place] [address] 04/19/2024 2:45 PM CDT Office Visit [address] [phone] Audrey Waite PA-C [address] [facility] [address], [facility] [address] [place], [place] [address] 05/08/2024 1:30 PM CDT Office Visit [facility] [address] [place] [address] Lauren Claudio PA-C [address] [place], [place] [phone] Esha Grimm PA-C [address] [place] [address] 06/21/2024 2:00 PM BRANCH OFFICE ADMINISTRATOR Office Visit [facility] - [address], [address] [place] [address] [place] [address] [place] [place], [place] [address] Johnny Penn MD [address] [place], [place] [address] documented as of this encounter Visit Diagnoses Diagnosis Anxiety Anxiety state, unspecified documented in this encounter Additional Health Concerns Infection Onset Date Last Indicated Resolved Time Rule Out COVID-19 07/30/2020 07/30/2020 07/30/2020 7:11 PM BRANCH OFFICE ADMINISTRATOR Rule Out COVID-19 08/30/2020 08/30/2020 08/30/2020 5:05 PM BRANCH OFFICE ADMINISTRATOR Rule Out COVID-19 09/24/2020 09/24/2020 09/24/2020 9:24 AM CDT Rule Out COVID-19 11/05/2020 11/05/2020 11/06/2020 1:09 PM CDT Rule Out COVID-19 05/11/2021 05/11/2021 05/13/2021 10:18 AM CDT Rule Out COVID-19 07/13/2021 07/13/2021 07/14/2021 3:04 PM BRANCH OFFICE ADMINISTRATOR Rule Out COVID-19 07/18/2021 07/18/2021 07/20/2021 1:56 PM BRANCH OFFICE ADMINISTRATOR COVID-19 07/18/2021 07/18/2021 08/08/2021 11:3 9 PM BRANCH OFFICE ADMINISTRATOR Rule Out COVID-19 12/18/2021 12/18/2021 12/19/2021 11:34 AM CDT Rule Out COVID-19 02/24/2022 02/24/2022 02/25/2022 1:08 PM CDT Rule Out COVID-19 04/26/2022 04/26/2022 04/26/2022 6:47 AM CDT Rule Out COVID-19 05/17/2022 05/17/2022 05/17/2022 10:20 PM BRANCH OFFICE ADMINISTRATOR Rule Out COVID-19 06/09/2022 06/09/2022 06/09/2022 9:35 AM BRANCH OFFICE ADMINISTRATOR COVID-19 06/09/2022 06/09/2022 06/30/2022 11:4 1 PM BRANCH OFFICE ADMINISTRATOR Rule Out COVID-19 11/10/2022 11/10/2022 11/11/2022 12:17 PM CDT Rule Out COVID-19 03/07/2023 03/07/2023 03/07/2023 1:20 PM CDT Rule Out COVID-19 12/26/2023 12/26/2023 12/26/2023 9:50 AM CDT Assessment Noted Time PHQ-9 Depression Total Score: 9 06/25/20 7:04 AM BRANCH OFFICE ADMINISTRATOR documented as of this encounter Care Teams Surveyor Instrument Assistant Relationship Specialty Start Date End Date Marija Edgar APRN COLLARETTE SEPARATOR PCP - General Nurse Practitioner 04/30/20 04/14/23 Esha Grimm PA-C [address] [place] [phone] PCP - General Family Medicine 05/04/23 Lita Oseguera Personal Advocate & Liaison (PAL) 02/28/20 03/27/23 Chanelle Mccann APRN CNM [address] [place] [address] [address] [place] [address] Assigned OBGYN Provider 05/02/2005/09 Kyara De La Fuente, VJ Specialty Photoengraving Finisher Neurology 06/04/20 03/05/21 Marija Edgar APRN COLLARETTE SEPARATOR Assigned PCP 06/08/20 04/29/23 Mynor Broussard MD [address] [facility] 500 [place] [address] Assigned Surgical Provider 06/01/20 11/28/21 Keisha Dotson MD [address] [place], [place] [address] Assigned Neuroscience Provider 06/04/20 04/01/23 Nikiatimothy Mary Financial Resource Worker 08/07/20 08/21/20 Stacey Briones, [facility] Lead Photoengraving Finisher Primary Care - CC 08/11/2012/30 Lesley Moody, [facility] Community Health Worker 08/11/2010/01 Mary Mejia Financial Resource Worker 09/02/20 10/06/20 Lita Oseguera Personal Advocate & Liaison (PAL) Family Medicine 09/10/20 09/21/20 Galo Burrell MD Assigned Heart and Vascular Provider 10/05/20 04/02/22 Cristina Wood Financial Resource Worker 10/07/20 10/14/20 Lesley Moody, [facility] Community Health Worker 10/23/2012/30 Meredith Bedoya Financial Resource Worker 10/23/20 11/23/20 Cristina Wood Financial Resource Worker 02/09/21 02/09/21 Diana Desir, [facility] [address] [place] [address] Pharmacist Pharmacist 04/17/21 Rain Galaviz PA-C [address] [place] [address] [facility] [place] [phone] Physician Tool Crib Manager Dermatology 04/28/21 Summer Lara MD [address] [place], [place] [address] Assigned OBGYN Provider 05/10/2105/23 Summer Lara MD [address] [place], [place] [address] Assigned OBGYN Provider 05/31/21 Summer Lara MD [address] [place], [place] [address] Assigned OBGYN Provider 05/24/2105/30 Tavia Wyatt MD [address] [place] [address] [facility] 07/14/21 Johnny Murillo MD [address] [facility] [address] [place], [place] [address] Assigned Musculoskeletal Provider 08/30/21 03/17/22 Erica Farrell APRN COLLARETTE SEPARATOR [address] [facility]] [address] [place], [place] [address] Nurse Practitioner Cardiovascular Disease 09/09/21 Teresita Bean, [facility] [address] [place] [phone] Pharmacist Pharmacist 09/24/21 09/29/21 Tavia Wyatt MD Assigned Surgical Provider 11/29/21 05/07/22 Diana Desir, [facility] [address] [facility] [place] [address] Assigned MTM Pharmacist 01/02/22 Rich Barrett MD [address] [address] Physician Ophthalmology 01/21/22 Neil Kent MD [address] [place] [address] Dermatology 02/24/22 Roney Story DPM [address] [facility] [address] [place] [address] Assigned Musculoskeletal Provider 03/20/22 08/13/22 Erica Farrell APRN COLLARETTE SEPARATOR [address] [place] [address] Assigned Heart and Vascular Provider 04/03/22 04/16/22 [facility] [address] [place] [address] Assigned MTM Pharmacist 04/07/22 Jelena David OD [address] [facility] [place] [address] Assigned Surgical Provider 05/08/22 10/08/22 Galo Burrell MD Assigned Heart and Vascular Provider 04/17/22 06/11/22 Livan Sharif MD [address] [place] [address] Cardiovascular Disease 05/14/22 Livan Sharif MD [address] [place] [address] Assigned Heart and Vascular Provider 06/12/22 07/23/22 Catherine Cm MD [address] [facility]00 [place] [address] Cardiovascular Disease 07/21/22 Valery Veronica, [facility] [address] [place] [address] Physician Tool Crib Manager Dermatology 07/21/22 Catherine Cm MD [address] [facility]00 [place] [phone] Assigned Heart and Vascular Provider 07/24/22 11/05/22 Johnny Murillo MD [address] [place] [address] Assigned Musculoskeletal Provider 08/14/22 10/08/22 Brea Quinn APRN COLLARETTE SEPARATOR [address] [place] [address]64415 Nurse Practitioner Dermatology 09/21/22 Brea Quinn APRN COLLARETTE SEPARATOR [address] [place] [address] [facility] [place] 367922 Assigned Surgical Provider 10/09/22 [place] [address] [facility] [place] 673067 Assigned Musculoskeletal Provider 10/09/22 Livan Sharif MD [address] [facility]00 [place] [address]38815 Assigned Heart and Vascular Provider 11/06/22 11/12/22 Catherine Cm MD [address] [place] [address] Assigned Heart and Vascular Provider 11/13/22 05/27/23 Sydnie Martinez RN Personal Advocate & Liaison (PAL) Family Medicine 03/28/23 07/31/23 Alfonso Renteria MD [address] [facility] [address] [place], [place] 40[address] Assigned Neuroscience Provider 04/02/23 Cheng Todd PA-C [address] [place] [address] [id number] Assigned PCP 04/30/23 07/15/23 Radha Lomeli APRN COLLARETTE SEPARATOR [address] [place] [address] Assigned Heart and Vascular Provider 05/28/23 Jelena David OD [address] [facility] [place] [address] Ophthalmology 06/15/23 Pao Joseph, VJ Personal Advocate & Liaison (PAL) Nurse 08/01/23 11/07/23 Esha Grimm PA-C [address] [place] [phone] Assigned PCP 07/16/23 Valery Veornica PA-C [address] [place], [place] [address] Physician Tool Crib Manager Dermatology 09/19/23 Rey Tay MD [address] [place] [address] MD Gastroenterology 09/20/23 Rocky Zepeda DO [address] [place] [address] Physician Gastroenterology 09/20/23 Philip Dumont MD 516 [place], [place] [address] Physician Ophthalmology 09/22/23 Meredith Carrera PA-C [address] [place] [address] [phone] Assigned Gastroenterology Provider 11/01/23 Neil Kent MD [address] [place] [address] 998160 Dermatology 11/02/23 [place] [address] [place] [address] Neurological Surgery 12/26/23 Audrey Waite PA-C [address] [place] [address] Physician Tool Crib Manager Dermatology 02/28/24 documented as of this encounter
--- OUTSIDE RECORDS SUMMARY | 2024-03-23 16:08 | XMS_ITS | Encounter Summary ---
Author Organization [facility] Address [address] [place] [address] Care Team Providers Care Glass Products Inspector Name Role Phone Lita Oseguera Unavailable Unavailable Marija Edgar APRN SUMMONS SERVER Primary Care Provider + Chanelle Mccann INFORMATION RESOURCE CONSULTANT CNM Unavailab le Kyara De La Fuente RN Unavailable [phone] Marija Edgar APRN SUMMONS SERVER Unavailable [phone] Mynor Broussard MD Unavailable [phone] Keisha Dotson MD Unavailable Mary Mejia Unavailable Unavailable Stacey Briones ERGONOMIC SPECIALIST Unavailable Lesley Moody CHW Unavailable [phone] Mary Mejia Unavailable Unavailable Lita Oseguera Unavailable Unavailable Galo Burrell MD Unavailable Unavailable Cristina Wood Unavailable Lesley Moody CHW Unavailable Meredith Bedoya Unavailable Unavailable Cristina Wood Unavailable Diana Desir [facility] Unavailable [place]uhland, Rain Lena PA-C Unavailable Summer Lara MD Unavailable [phone] Summer Lara MD Unavailable +[phone] Summer Lara MD Unavailable +[phone] Tavia Wyatt MD Unavailable Unavailable SemJohnny mckeon MD Unavailable +[phone] Erica Farrell APRN SUMMONS SERVER Unavailable + Vikas Teresita Watson H Unavailable Tavia Wyatt MD Unavailable Unavailable Diana Desir [facility] Unavailable [phone] Rich Barrett MD Unavailable [phone] Neil Kent MD Unavailable Roney Story DPM Unavailable [phone] Erica Farrell APRN SUMMONS SERVER Unavailable + Diana Desir [facility] Unavailable [phone] Jelena David Radha OD Unavailable [phone] Galo Burrell MD Unavailable Unavailable Livan Sharif MD Unavailable + Livan Sharif MD Unavailable + Catherine Cm MD Unavailable + Valery Veronica PA-C Unavailable [phone] Catherine Cm MD Unavailable + Johnny Murillo MD Unavailable +[phone] Brea Quinn APRN SUMMONS SERVER Unavailable [phone] Brea Quinn INFORMATION RESOURCE CONSULTANT SUMMONS SERVER Unavailable [phone] Jose Francisco Johnson MD Unavailable Livan Sharif MD Unavailable + Catherine Cm MD Unavailable + Sydnie Martinez RN Unavailable Unavailable Alfonso Renteria MD Unavailable [phone] Esha Grimm PA-C Primary Care Provider Cheng Todd PA-C Unavailable Radha Lomeli APRN SUMMONS SERVER Unavailable FrankieJelenae OD Unavailable [phone] Pao Joseph RN Unavailable Unavailable Esha Grimm PA-C Unavailable [phone] Valery Veronica PA-C Unavailable Rey Tay MD Unavailable Rocky Zepeda DO Unavailable Philip Dumont MD Unavailable [phone] Meredith Carrera PA-C Unavailable Neil Kent MD Unavailable Juan Pablo Emmanuel MD Unavailable Audrey Waite PA-C Unavailable [phone] Encounter Details Date Type Department Care Team (Late st Contact Info) Description 07/17/2020 MyC Medical Advice [facility] Epilepsy Care [address], [address] [place] [address] Keisha Dotson MD [address] [place] [address] Social History Tobacco Use Types [...] COVID-19? No / Unsure 06/24/2020 3:01 PM SENIOR MORTGAGE LOAN PROCESSOR documented as of this encounter Miscellaneous Notes * Telephone Encounter - Kyara De La Fuente RN - 07/23/2020 1:41 PM CST Patient contacted the office by [facility] to report intolerability of levetiracetam. She stayed [...] her shewouldn't need medication her whole life. OR MORTGAGE LOAN PROCESSOR documented in this encounter Plan of Treatment Upcoming Encounters Date Type Department Care Team (Late st Contact Info) Description 03/26/2024 11:20 AM CDT Office Visit [facility] Spine and Neurosurgery [address] [place] [phone] Ebony Cid, [facility] [address] [place] [address] 03/27/2024 11:00 AM CDT Office Visit [facility] [place] [address] [facility] [address] [place] [phone] Jelena David, [address] [facility] [address] [place] [address] 03/29/2024 3:30 PM CDT Therapy Visit [facility] [address] [place] [address] [address] [place] [phone] Ingris Thompson, PT [facility] [address] [place] [address] [address] [place], [place] 692[address] 04/05/2024 2:10 PM CDT Therapy Visit [facility] [address] [place] [address] [address] [place] [phone] Ingris Thompson, PT [facility] [address] [place] [address] [address] [place] [address] 04/19/2024 2:45 PM CDT Office Visit [address] [phone] Audrey Waite PA-C [address] [facility] [address], [facility] [address] [place] [address] 05/08/2024 1:30 PM CDT Office Visit [facility] [address] [place] [phone] Lauren Claudio PA-C [address] [place], [place] [phone] Esha Grimm PA-C [address] [place] [phone] 06/21/2024 2:00 PM SENIOR MORTGAGE LOAN PROCESSOR Office Visit [facility] [place] [address] [facility], [address] [place] [phone] [place] [address] [place], [place] [address] Johnny Penn MD [address] [place] [address] documented as of this encounter Visit Diagnoses Not on filedocumented in this encounter Additional Health Concerns Infection Onset Date Last Indicated Resolved Time Rule Out COVID-19 07/30/2020 07/30/2020 07/30/2020 7:11 PM SENIOR MORTGAGE LOAN PROCESSOR Rule Out COVID-19 08/30/2020 08/30/2020 08/30/2020 5:05 PM SENIOR MORTGAGE LOAN PROCESSOR Rule Out COVID-19 09/24/2020 09/24/2020 09/24/2020 9:24 AM CDT Rule Out COVID-19 11/05/2020 11/05/2020 11/06/2020 1:09 PM CDT Rule Out COVID-19 05/11/2021 05/11/2021 05/13/2021 10:18 AM CDT Rule Out COVID-19 07/13/2021 07/13/2021 07/14/2021 3:04 PM SENIOR MORTGAGE LOAN PROCESSOR Rule Out COVID-19 07/18/2021 07/18/2021 07/20/2021 1:56 PM SENIOR MORTGAGE LOAN PROCESSOR COVID-19 07/18/2021 07/18/2021 08/08/2021 11:3 9 PM SENIOR MORTGAGE LOAN PROCESSOR Rule Out COVID-19 12/18/2021 12/18/2021 12/19/2021 11:34 AM CDT Rule Out COVID-19 02/24/2022 02/24/2022 02/25/2022 1:08 PM CDT Rule Out COVID-19 04/26/2022 04/26/2022 04/26/2022 6:47 AM CDT Rule Out COVID-19 05/17/2022 05/17/2022 05/17/2022 10:20 PM SENIOR MORTGAGE LOAN PROCESSOR Rule Out COVID-19 06/09/2022 06/09/2022 06/09/2022 9:35 AM SENIOR MORTGAGE LOAN PROCESSOR COVID-19 06/09/2022 06/09/2022 06/30/2022 11:4 1 PM SENIOR MORTGAGE LOAN PROCESSOR Rule Out COVID-19 11/10/2022 11/10/2022 11/11/2022 12:17 PM CDT Rule Out COVID-19 03/07/2023 03/07/2023 03/07/2023 1:20 PM CDT Rule Out COVID-19 12/26/2023 12/26/2023 12/26/2023 9:50 AM CDT Assessment Noted Time PHQ-9 Depression Total Score: 9 06/25/20 20 7:04 AM SENIOR MORTGAGE LOAN PROCESSOR documented as of this encounter Care Teams Glass Products Inspector Relationship Specialty Start Date End Date Marija Edgar APRN SUMMONS SERVER PCP - General Nurse Practitioner 04/30/20 04/14/23 Esha Grimm PA-C [address] [place] [phone] PCP - General Family Medicine 05/04/23 Lita Oseguera Personal Advocate & Liaison (PAL) 02/28/20 03/27/23 Chanelle Mccann APRN CNM [address] [place] [address] Assigned OBGYN Provider 05/02/2005/09 Kyara De La Fuente, RN Specialty Salesforce Business Analyst Neurology 06/04/20 03/05/21 Marija Edgar APRN SUMMONS SERVER Assigned PCP 06/08/20 04/29/23 Mynor Broussard MD [address] [place], [place] [phone] Assigned Surgical Provider 06/01/20 11/28/21 Keisha Dotson MD [address] [place], [place] [phone] Assigned Neuroscience Provider 06/04/20 04/01/23 Mary Mejia Financial Resource Worker 08/07/20 08/21/20 Stacey Briones, [facility] Lead Salesforce Business Analyst Primary Care - CC 08/11/2012/30 Lesley [...] 02/09/21 02/09/21 Diana Desir, [facility] [address] [place] [address] Pharmacist Pharmacist 04/17/21 Rain Galaviz PA-C [address] [place] [address] [address] [place] [address] Physician Strap Buckler Machine Dermatology 04/28/21 Summer Lara MD [address] [facility] [place] [address] Assigned OBGYN Provider 05/10/2105/23 Summer Lara MD [address] [facility] [place] [address] Assigned OBGYN Provider 05/31/21 Summer Lara MD [address] [place] [address] [place] [address] Assigned OBGYN Provider 05/24/2105/30 Tavia Wyatt MD [address] [place] [address] Dermatology 07/14/21 Johnny Murillo MD [facility] [address] [place] [address] Assigned Musculoskeletal Provider 08/30/21 03/17/22 Erica Farrell APRN [facility] [address] [facility] [address] [place] [address] Nurse Practitioner Cardiovascular Disease 09/09/21 Teresita Bean [facility] [address] [place] [address] Pharmacist Pharmacist 09/24/21 09/29/21 Tavia Wyatt MD Assigned Surgical Provider 11/29/21 05/07/22 [facility] [address] [place] [address] Assigned MTM Pharmacist 01/02/22 Rich Barrett MD [address] [facility], [address] [address] Physician Ophthalmology 01/21/22 Neil Kent MD [address] [place], [place] 157075 Dermatology 02/24/22 Roney Story DPM [address] [employer] [facility] [address] [place], [place] 7[address] Assigned Musculoskeletal Provider 03/20/22 08/13/22 Erica Farrell APRN SUMMONS SERVER [address] [place] [address] Assigned Heart and Vascular Provider 04/03/22 04/16/22 Diana Desir, [facility] [address] [place] [address] Assigned MTM Pharmacist 04/07/22 [place] OD [address] [facility] [place] [address] Assigned Surgical Provider 05/08/22 10/08/22 Galo Burrell MD Assigned Heart and Vascular Provider 04/17/22 06/11/22 Livan Sharif MD [address] [facility] [address] [place] 918[address] Cardiovascular Disease 05/14/22 Livan Sharif MD [address] [facility] [address] [phone] [place] [address] Assigned Heart and Vascular Provider 06/12/22 07/23/22 Catherine Cm MD [address] [phone] [place] [address] Cardiovascular Disease 07/21/22 Valery Veronica, PA-C [address] [place] [address] [phone] Physician Strap Buckler Machine Dermatology 07/21/22 Catherine Cm MD [address] [address] Assigned Heart and Vascular Provider 07/24/22 11/05/22 Johnny Murillo MD [address] [place] [address] [phone] Assigned Musculoskeletal Provider 08/14/22 10/08/22 Brea Quinn APRN SUMMONS SERVER [address] [place] [address] [phone] Nurse Practitioner Dermatology 09/21/22 Brea Quinn APRN SUMMONS SERVER [address] [place] [address] 642192 Assigned Surgical Provider 10/09/22 [place] [address] [place] [address] Assigned Musculoskeletal Provider 10/09/22 Livan Sharif MD [address], [facility] [address] [place] [address] Assigned Heart and Vascular Provider 11/06/22 11/12/22 Catherine Cm MD [address] [facility] [address] [place] [address] Assigned Heart and Vascular Provider 11/13/22 05/27/23 Sydnie Martinez RN Personal Advocate & Liaison (PAL) Family Medicine 03/28/23 07/31/23 Alfonso Renteria MD [address] [facility] [address] [place] [address] Assigned Neuroscience Provider 04/02/23 Cheng Todd PA-C [address] [place] [address] [phone] Assigned PCP 04/30/23 07/15/23 Radha Lomeli, [facility] SUMMONS SERVER [address] [place] [address] Assigned Heart and Vascular Provider 05/28/23 Jelena David OD [address] [facility] [place] [address] Ophthalmology 06/15/23 Pao Joseph RN Personal Advocate & Liaison (PAL) Nurse 08/01/23 11/07/23 Esha Grimm PA-C [address] [place] [address] Assigned PCP 07/16/23 Valery Veronica PA-C [address] [place] [address] Physician Strap Buckler Machine Dermatology 09/19/23 Rey Tay MD [address] [place] [address] MD Gastroenterology 09/20/23 Rocky Zepeda DO [address] [place] [address] [phone] Physician Gastroenterology 09/20/23 Philip Dumont MD [address] [place] [address] Physician Ophthalmology 09/22/23 Meredith Carrera PA-C [address] [place] [address] Assigned Gastroenterology Provider 11/01/23 Neil Kent MD [address] 535550 Dermatology 11/02/23 [place] [address] [place] [phone] Neurological Surgery 12/26/23 Audrey Waite PA-C [address] [place] [address] 789175 Physician Strap Buckler Machine Dermatology 02/28/24 documented as of this encounter
--- OUTSIDE RECORDS SUMMARY | 2024-03-23 16:08 | XMS_ITS | Encounter Summary ---
Author Organization [employer] Address [address] [place] [id number] Care Team Providers Care Shake Maker Name Role Phone Lita Oseguera Unavailable Unavailable Rakesh Cid PA-C Unavailable Marija Edgar MITER CUTTER MEAT BONER Primary Care Provider + Chanelle Mccann MITER CUTTER CNM Unavailab le Lesley Moody CHW Unavailable Kyara De La Fuente RN Unavailable [phone] Marija Edgar APRN MEAT BONER Unavailable Mynor Broussard MD Unavailable [phone] Keisha Dotson MD Unavailable Mary Mejia Unavailable Unavailable Stacey Briones AIR QUALITY CONSULTANT Unavailable [phone] Lesley Moody CHW Unavailable Mary Mejia Unavailable Unavailable Lita Oseguera Unavailable Unavailable Galo Burrell MD Unavailable Unavailable Cristina Wood Unavailable Lesley Moody CHW Unavailable [phone] Meredith Bedoya Unavailable Unavailable Cristina Wood Unavailable DesirDiana [facility] Unavailable [phone] Rain Galaviz PA-C Unavailable [phone] Summer Lara MD Unavailable [phone] Summer Lara MD Unavailable [phone] Summer Lara MD [phone] Tavia Wyatt MD Unavailable Unavailable Johnny Murillo MD Unavailable [phone] Erica Farrell MITER CUTTER MEAT BONER Unavailable Vikas Teresita Jesus Walter [facility] Unavailable Tavia Waytt MD Unavailable Unavailable Diana Desir [facility] Unavailable [phone] Rich Barrett MD Unavailable [phone] Neil Kent MD Unavailable Roney Story DPM Unavailable Erica Farrell MITER CUTTER MEAT BONER Unavailable Diana Desir [facility] Unavailable [phone] Jelena David OD Unavailable Galo Burrell MD Unavailable Unavailable Livan Sharif MD Unavailable + Livan Sharif MD Unavailable + Catherine Cm MD Unavailable + Valery Veronica PA-C Unavailable [phone] Catherine Cm MD Unavailable + Johnny Murillo MD Unavailable [phone] Brea Quinn MITER CUTTER MEAT BONER Unavailable [phone] Brea Quinn MITER CUTTER MEAT BONER Unavailable [phone] Jose Francisco Johnson MD Unavailable Livan Sharif MD Unavailable Catherine Cm MD Unavailable + Sydnie Martinez RN Unavailable Unavailable Alfonso Renteria MD Unavailable Esha Grimm PA-C Primary Care Provider [phone] Cheng Todd PA-C Unavailable Radha Lomeli APRN MEAT BONER Unavailable [phone] Jelena David OD Unavailable Pao Joseph RN Unavailable Unavailable Esha Grimm PA-C Unavailable [phone] Valery Veronica PA-C Unavailable [phone] Rey Tay MD Unavailable Rocky Zepeda DO Unavailable Philip Dumont MD Unavailable [phone] Meredith Carrera PA-C Unavailable [phone] Neil Kent MD Unavailable Juan Pablo Emmanuel MD Unavailable [phone] Audrey Waite PA-C Unavailable [phone] Encounter Details Date Type Department Care Team (Late st Contact Info) Description 05/16/2020 MyC Medical Advice [facility] [address] [place] [address] Jerome Ferrell, RN Social History [...] COVID-19? No / Unsure 05/12/2020 9:03 AM FIBERGLASS AUTO BODY REPAIRER documented as of this encounter Plan of Treatment Upcoming Encounters Date Type Department Care Team (Late st Contact Info) Description 03/26/2024 11:20 AM CDT Office Visit [facility] Spine and Neurosurgery [address] [facility] [address] [place] [address] Ebony Cid, [facility] [address] [place] [address] 03/27/2024 11:00 AM CDT [facility] Visit [facility] [address] [facility] [address] [place] [phone] Jelena David, [address] [facility] [place] [address] 03/29/2024 3:30 PM CDT Therapy Visit [address] [phone] Ingris Thompson, [facility] [address] [place] [address] 04/05/2024 2:10 PM CDT Therapy Visit [address] [phone] Ingris Thompson, PT [address] [address] 04/19/2024 2:45 PM CDT Office Visit [address] [place] [phone] Audrey Waite PA-C [address] [facility] [address], [facility] [address] [place], [place] [address] 05/08/2024 1:30 PM CDT Office Visit [facility] [id number] [place] [phone] Lauren Claudio PA-C [address] [place] [address] Esha Grimm PA-C [address] [place] [address] 06/21/2024 2:00 PM FIBERGLASS AUTO BODY REPAIRER Office Visit [facility] Neurology [facility] - [address], [address] [place] [phone] [place] [address] [place] [address] Johnny Penn MD [address] [place] [address] documented as of this encounter Visit Diagnoses Not on filedocumented in this encounter Additional Health Concerns Infection Onset Date Last Indicated Resolved Time Rule Out COVID-19 07/30/2020 07/30/2020 07/30/2020 7:11 PM FIBERGLASS AUTO BODY REPAIRER Rule Out COVID-19 08/30/2020 08/30/2020 08/30/2020 5:05 PM FIBERGLASS AUTO BODY REPAIRER Rule Out COVID-19 09/24/2020 09/24/2020 09/24/2020 9:24 AM CDT Rule Out COVID-19 11/05/2020 11/05/2020 11/06/2020 1:09 PM CDT Rule Out COVID-19 05/11/2021 05/11/2021 05/13/2021 10:18 AM CDT Rule Out COVID-19 07/13/2021 07/13/2021 07/14/2021 3:04 PM FIBERGLASS AUTO BODY REPAIRER Rule Out COVID-19 07/18/2021 07/18/2021 07/20/2021 1:56 PM FIBERGLASS AUTO BODY REPAIRER COVID-19 07/18/2021 07/18/2021 08/08/2021 11:3 9 PM FIBERGLASS AUTO BODY REPAIRER Rule Out COVID-19 12/18/2021 12/18/2021 12/19/2021 11:34 AM CDT Rule Out COVID-19 02/24/2022 02/24/2022 02/25/2022 1:08 PM CDT Rule Out COVID-19 04/26/2022 04/26/2022 04/26/2022 6:47 AM CDT Rule Out COVID-19 05/17/2022 05/17/2022 05/17/2022 10:20 PM FIBERGLASS AUTO BODY REPAIRER Rule Out COVID-19 06/09/2022 06/09/2022 06/09/2022 9:35 AM FIBERGLASS AUTO BODY REPAIRER COVID-19 06/09/2022 06/09/2022 06/30/2022 11:4 1 PM FIBERGLASS AUTO BODY REPAIRER Rule Out COVID-19 11/10/2022 11/10/2022 11/11/2022 12:17 PM CDT Rule Out COVID-19 03/07/2023 03/07/2023 03/07/2023 1:20 PM CDT Rule Out COVID-19 12/26/2023 12/26/2023 12/26/2023 9:50 AM CDT Assessment Noted Time PHQ-9 Depression Total Score: 12 020 2:40 PM CDT documented as of this encounter Care Teams Shake Maker Relationship Specialty Start Date End Date Marija Edgar APRN MEAT BONER [address] [place] [address] PCP - General Nurse Practitioner 04/30/20 04/14/23 Esha Grimm PA-C [address] [place] [address] PCP - General Family Medicine 05/04/23 Lita Oseguera Personal Advocate & Liaison (PAL) 02/28/20 03/27/23 Rakesh Cid PA-C [address] [facility] [address] Assigned PCP 03/02/20 06/07/20 Chanelle Mccann APRN CNM [address] [place] [address] [address] [place] [address] Assigned OBGYN Provider 05/02/2005/09 Lesley Moody W Community Health Worker 05/30/2005/12 Kyara De La Fuente, RN Specialty Snuff Maker Neurology 06/04/20 03/05/21 Marija Edgar APRN MEAT BONER [address] [place] [address] Assigned PCP 06/08/20 04/29/23 Mynor Broussard MD [address] [facility] [address] [place] [address] Assigned Surgical Provider 06/01/20 11/28/21 Keisha Dotson MD [address] [place] [address] Assigned Neuroscience Provider 06/04/20 04/01/23 Mary Mejia Financial Resource Worker 08/07/20 08/21/20 Stacey Briones, [facility] Lead Snuff Maker Primary Care - CC 08/11/2012/30 Lesley Moody, [facility] Community Health Worker 08/11/2010/01 Jackie Mary Financial Resource Worker 09/02/20 10/06/20 Lita Oseguera Personal Advocate & Liaison (PAL) Family Medicine 09/10/20 09/21/20 Galo Burrell MD Assigned Heart and Vascular Provider 10/05/20 04/02/22 Cristina Wood Financial Resource Worker 10/07/20 10/14/20 Lesley Moody, [facility] Community Health Worker 10/23/2012/30 Meredith Bedoya Financial Resource Worker 10/23/20 11/23/20 Cristina Wood Financial Resource Worker 02/09/21 02/09/21 Diana Desir, [facility] [place], [place] [address] Pharmacist Pharmacist 04/17/21 Rain Galaviz PA-C [address] [place] [address] [address] [facility] [place] [phone] Physician [employer] Consultant Dermatology 04/28/21 Summer Lara MD [address] [place] [address] [phone] Assigned OBGYN Provider 05/10/2105/23 Summer Lara MD [address] [place] [address] [phone] Assigned OBGYN Provider 05/31/21 2 Summer Lara MD [address] [place], [place] [address] Assigned OBGYN Provider 05/24/2105/30 Tavia Wyatt MD [address] [place] [address] Dermatology 07/14/21 Johnny Murillo MD [address] [facility] [address] [place] [address] Assigned Musculoskeletal Provider 08/30/21 03/17/22 Erica Farrell APRN MEAT BONER [address] [facility] [address] [place], [place] [address] Nurse Practitioner Cardiovascular Disease 09/09/21 Teresita Bean, [facility] [address] [facility] [address] [place], [place] [phone] Pharmacist Pharmacist 09/24/21 09/29/21 Tavia Wyatt MD Assigned Surgical Provider 11/29/21 05/07/22 [facility] [address] [place] [address] Assigned MTM Pharmacist 01/02/22 Rich Barrett MD [address] [address] Physician Ophthalmology 01/21/22 Neil Kent MD [address] [place] [address] Dermatology 02/24/22 Roney Story DPM [address] [facility] [address] [place] [address] Assigned Musculoskeletal Provider 03/20/22 08/13/22 Erica Farrell APRN MEAT BONER [address] [place] [address] Assigned Heart and Vascular Provider 04/03/22 04/16/22 Diana Desir, [facility] [address] [place] [address] Assigned MTM Pharmacist 04/07/22 Jelena David OD [address] [facility] [place] [address] Assigned Surgical Provider 05/08/22 10/08/22 Galo Burrell MD Assigned Heart and Vascular Provider 04/17/22 06/11/22 Livan Sharif MD [address] [place] [address] Cardiovascular Disease 05/14/22 Livan Sharif MD [address] [place] [address] Assigned Heart and Vascular Provider 06/12/22 07/23/22 Catherine Cm MD [address] [place] [phone] Cardiovascular Disease 07/21/22 aVlery Veronica, PAUcheC [address] [place], [place] [address] Physician [employer] Consultant Dermatology 07/21/22 Catherine Cm MD [address] [facility] [place] MD 363035 Assigned Heart and Vascular Provider 07/24/22 11/05/22 Johnny Murillo MD [address] [place] [address] Assigned Musculoskeletal Provider 08/14/22 10/08/22 Brea Quinn APRN MEAT BONER [address] [place] [address] Nurse Practitioner Dermatology 09/21/22 Brea Quinn APRN MEAT BONER [address] [place] [address] Assigned Surgical Provider 10/09/22 [place] [address] [address] Assigned Musculoskeletal Provider 10/09/22 Livan Sharif MD [address] Sylvia, [facility] [place], [place] 8424[address] Assigned Heart and Vascular Provider 11/06/22 11/12/22 Catherine Cm MD [address] [place] [address] Assigned Heart and Vascular Provider 11/13/22 05/27/23 Sydnie Martinez, VJ Personal Advocate & Liaison (PAL) Family Medicine 03/28/23 07/31/23 Alfonso Renteria MD [address] [facility] [address] [place] [address] Assigned Neuroscience Provider 04/02/23 Cheng Todd PA-C [address] [place] [address] [phone] Assigned PCP 04/30/23 07/15/23 Radha Lomeli APRN MEAT BONER [address] [facility] [address] [place] [address] Assigned Heart and Vascular Provider 05/28/23 Jelena David OD [address] [facility] [address] Ophthalmology 06/15/23 Pao Joseph, VJ Personal Advocate & Liaison (PAL) Nurse 08/01/23 11/07/23 Esha Grimm PA-C [address] [place] [address] Assigned PCP 07/16/23 Valery Veronica PA-C [address] [place] [address] 893165 Physician [employer] Consultant Dermatology 09/19/23 Rey Tay MD [address] [place] [phone] Gastroenterology 09/20/23 Rocky Zepeda DO 500 [place] [address] Physician Gastroenterology 09/20/23 Philip Dumont MD [address] [place] [address] Physician Ophthalmology 09/22/23 Meredith Carrera PA-C [address] [place] [address]49[address] Assigned Gastroenterology Provider 11/01/23 Neil Kent MD [address] 884[address] Dermatology 11/02/23 [place] [address] [address]8727 Neurological Surgery 12/26/23 Audrey Waite PA-C [address] [place], [place] [address] Physician [employer] Consultant Dermatology 02/28/24 documented as of this encounter
--- OUTSIDE RECORDS SUMMARY | 2024-03-23 16:08 | XMS_ITS | Encounter Summary ---
Author Organization [facility] Address [address] [place] [address] Care Team Providers Care Repairer Cylinder Heads Name Role Phone Lita Oseguera Unavailable Unavailable Rakesh Cid PA-C Unavailable Marija Edgar ADVANCED PRACTICE NURSE HOTEL MAINTENANCE TECHNICIAN Primary Care Provider + Chanelle Mccann ADVANCED PRACTICE NURSE CNM Unavailab le Lesley Moody CHW Unavailable Kyara De La Fuente RN Unavailable [phone] Marija Edgar APRN HOTEL MAINTENANCE TECHNICIAN Unavailable Mynor Broussard MD Unavailable [phone] Keisha Dotson MD Unavailable [phone] Mary Mejia Unavailable Unavailable Stacey Briones TOE FORMER Unavailable Lesley Moody CHW Unavailable [phone] Mary Mejia Unavailable Unavailable Lita Oseguera Unavailable Unavailable Galo Burrell MD Unavailable Unavailable Cristina Wood Unavailable Lesley Moody CHW Unavailable Meredith Bedoya Unavailable Unavailable Cristina Wood Unavailable DesirDiana [facility] Unavailable [phone] Rain Galaviz PA-C Unavailable [phone] Summer Lara MD Unavailable [phone] Summer Lara MD Unavailable [phone] Summer Lara MD Unavailable [phone] Tavia Wyatt MD Unavailable Unavailable Johnny Murillo MD Unavailable [phone] Erica Farrell ADVANCED PRACTICE NURSE HOTEL MAINTENANCE TECHNICIAN Unavailable Vikas Teresita Jesus Walter [facility] Unavailable Tavia Wyatt MD Unavailable Unavailable Diana Desir [facility] Unavailable [phone] Rich Barrett MD Unavailable [phone] Neil Kent MD Unavailable Roney Story DPM Unavailable Erica Farrell ADVANCED PRACTICE NURSE HOTEL MAINTENANCE TECHNICIAN Unavailable Diana Desir [facility] Unavailable [phone] Jelena David OD Unavailable [phone] Galo Burrell MD Unavailable Unavailable Livan Sharif MD Unavailable + Livan Sharif MD Unavailable + Catherine Cm MD Unavailable + Valery Veronica PA-C Unavailable [phone] Catherine Cm MD Unavailable + Johnny Murillo MD Unavailable [phone] Brea Quinn ADVANCED PRACTICE NURSE HOTEL MAINTENANCE TECHNICIAN Unavailable [phone] Brea Quinn ADVANCED PRACTICE NURSE HOTEL MAINTENANCE TECHNICIAN Unavailable [phone] Jose Francisco Johnson MD Unavailable Livan Sharif MD Unavailable Catherine Cm MD Unavailable + Sydnie Martinez RN Unavailable Unavailable Alfonso Renteria MD Unavailable [phone] Esha Grimm PA-C Primary Care Provider Cheng Todd PA-C Unavailable Radha Lomeli APRN HOTEL MAINTENANCE TECHNICIAN Unavailable [phone] Jelena David OD Unavailable Pao Joseph RN Unavailable Unavailable Esha Grimm PA-C Unavailable [phone] Valery Veronica PA-C Unavailable [phone] Rey Tay MD Unavailable Rocky Zepeda DO Unavailable Philip Dumont MD Unavailable [phone] Meredith Carrera PA-C Unavailable [phone] Neil Kent MD Unavailable Juan Pablo Emmanuel MD Unavailable [phone] Audrey Waite PA-C Unavailable [phone] Reason for Visit * Reason Onset Date Comments Referral 05/19/2020 Encounter Details Date Type Department Care Team (Late st Contact Info) Description 05/19/2020 Telephone [facility] Epilepsy [facility] [place] [address], [address] [place] [address] Unknown Referral Social History Tobacco [...] COVID-19? No / Unsure 05/12/2020 9:03 AM WAREHOUSE FOREMAN documented as of this encounter Miscellaneous Notes * Telephone Encounter - Jolene Mcpherson - 05/19/2020 2:02 PM CST [facility] Phone Message May a detailed message be left on voicemail: yes Reason for Call: Appointment Intake Referring Provider Name: Marija Edgar APRN CNP in FAMILY PRACTICE Diagnosis and/or Symptoms: History of Seizures Being referred to [facility]. Please review. Thanks. Action Taken: Other: [facility] Travel Screening: Not Applicable HOUSE FOREMAN documented in this encounter Plan of Treatment Upcoming Encounters Date Type Department Care Team (Late st Contact Info) Description 03/26/2024 11:20 AM CDT Office Visit [facility] [address] [place] [address] [address] [place] [phone] Ebony Cid APRN HOTEL MAINTENANCE TECHNICIAN [address] [place], [place] [address] 03/27/2024 11:00 AM CDT Office Visit [facility] [place] [address] [place] [phone] Jelena David, SONJA [address] [facility] [place] [address] 03/29/2024 3:30 PM CDT Therapy Visit [facility] [place] [address] [place] [address] [address] [place] [address] Ingris Thompson, PT [facility] [address] [facility] [address] [place], [place] [address] 04/05/2024 2:10 PM CDT Therapy Visit [facility] [place] [address] [facility] [address] [place] [phone] Ingris Thompson, PT [facility] [address] [facility] [address] [place], [place] [address] 04/19/2024 2:45 PM CDT Office Visit [facility] [address] [place] [address] Audrey Waite PA-C [address] [facility] [address], [facility] [address] [place], [place] [address] 05/08/2024 1:30 PM CDT Office Visit [facility] [address] [place] [phone] Lauren Claudio PA-C [address] [place], [place] [phone] Esha Grimm PA-C [address] [place] [address] 06/21/2024 2:00 PM WAREHOUSE FOREMAN Office Visit [facility] [place] [address] [facility], [address] [place] [address] [place] [address] [place] [address] Johnny Penn MD [address] [place] [address] documented as of this encounter Visit Diagnoses Not on filedocumented in this encounter Additional Health Concerns Infection Onset Date Last Indicated Resolved Time Rule Out COVID-19 07/30/2020 07/30/2020 07/30/2020 7:11 PM WAREHOUSE FOREMAN Rule Out COVID-19 08/30/2020 08/30/2020 08/30/2020 5:05 PM WAREHOUSE FOREMAN Rule Out COVID-19 09/24/2020 09/24/2020 09/24/2020 9:24 AM CDT Rule Out COVID-19 11/05/2020 11/05/2020 11/06/2020 1:09 PM CDT Rule Out COVID-19 05/11/2021 05/11/2021 05/13/2021 10:18 AM CDT Rule Out COVID-19 07/13/2021 07/13/2021 07/14/2021 3:04 PM WAREHOUSE FOREMAN Rule Out COVID-19 07/18/2021 07/18/2021 07/20/2021 1:56 PM WAREHOUSE FOREMAN COVID-19 07/18/2021 07/18/2021 08/08/2021 11:3 9 PM WAREHOUSE FOREMAN Rule Out COVID-19 12/18/2021 12/18/2021 12/19/2021 11:34 AM CDT Rule Out COVID-19 02/24/2022 02/24/2022 02/25/2022 1:08 PM CDT Rule Out COVID-19 04/26/2022 04/26/2022 04/26/2022 6:47 AM CDT Rule Out COVID-19 05/17/2022 05/17/2022 05/17/2022 10:20 PM WAREHOUSE FOREMAN Rule Out COVID-19 06/09/2022 06/09/2022 06/09/2022 9:35 AM WAREHOUSE FOREMAN COVID-19 06/09/2022 06/09/2022 06/30/2022 11:4 1 PM WAREHOUSE FOREMAN Rule Out COVID-19 11/10/2022 11/10/2022 11/11/2022 12:17 PM CDT Rule Out COVID-19 03/07/2023 03/07/2023 03/07/2023 1:20 PM CDT Rule Out COVID-19 12/26/2023 12/26/2023 12/26/2023 9:50 AM CDT Assessment Noted Time PHQ-9 Depression Total Score: 6 08/28/19 21 7:05 AM WAREHOUSE FOREMAN documented as of this encounter Care Teams Repairer Cylinder Heads Relationship Specialty Start Date End Date Marija Edgar APRN HOTEL MAINTENANCE TECHNICIAN [address] [place] [address] PCP - General Nurse Practitioner 04/30/20 04/14/23 Esha Grimm PA-C [address] [place] [phone] PCP - General Family Medicine 05/04/23 Lita Oseguera Personal Advocate & Liaison (PAL) 02/28/20 03/27/23 Rakesh Cid PA-C [address] [place] [address] Assigned PCP 03/02/20 06/07/20 Chanelle Mccann APRN CNM [address] [address] [facility] [address] [place] [address] Assigned OBGYN Provider 05/02/2005/09 Lesley Moody CHW Community Health Worker 05/30/2005/12 Kyara De La Fuente, RN Specialty Operations Logistics Analyst Neurology 06/04/20 03/05/21 Marija Edgar APRN HOTEL MAINTENANCE TECHNICIAN [address] [place] [address] Assigned PCP 06/08/20 04/29/23 Mynor Broussard MD [address] [facility] 500 [place], [place] [address] Assigned Surgical Provider 06/01/20 11/28/21 Keisha Dotson MD [address] [place], [place] [address] Assigned Neuroscience Provider 06/04/20 04/01/23 Mary Mejia Financial Resource Worker 08/07/20 08/21/20 Stacey Briones, [facility] Lead Operations Logistics Analyst Primary Care - CC 08/11/2012/30 Lesley Moody, [facility] Community Health Worker 08/11/2010/01 Mary Mejia Financial Resource Worker 09/02/20 10/06/20 Lita Oseguera Personal Advocate & Liaison (PAL) Family Medicine 09/10/20 09/21/20 Galo Burrell MD Assigned Heart and Vascular Provider 10/05/20 04/02/22 Cristina Wood Financial Resource Worker 10/07/20 10/14/20 Lesley Moody, [facility] Community Health Worker 10/23/2012/30 Meredith Bedoya Financial Resource Worker 10/23/20 11/23/20 Cristina Wood Financial Resource Worker 02/09/21 02/09/21 Diana Desir, [facility] [address] [place] [address] Pharmacist Pharmacist 04/17/21 Rain Galaviz PA-C [address] [place] [address] [place] [address] Physician Small Appliance Assembly Supervisor Dermatology 04/28/21 Summer Lara MD [address] [facility] [place] [address] Assigned OBGYN Provider 05/10/2105/23 Summer Lara MD [address] [facility] [place] [address] Assigned OBGYN Provider 05/31/21 Summer Lara MD [address] [facility] [place] [address] Assigned OBGYN Provider 05/24/2105/30 Tavia Wyatt MD [address] [place] [address] Dermatology 07/14/21 Johnny Murillo MD [facility] [place] [address] Assigned Musculoskeletal Provider 08/30/21 03/17/22 Erica Farrell APRN HOTEL MAINTENANCE TECHNICIAN [address] [facility] [address] [place] [address] Nurse Practitioner Cardiovascular Disease 09/09/21 Teresita Bean, [facility] [address] [place] [address] Pharmacist Pharmacist 09/24/21 09/29/21 Tavia Wyatt MD Assigned Surgical Provider 11/29/21 05/07/22 Diana Desir, [facility] [address] [place] [address] Assigned MTM Pharmacist 01/02/22 Rich [place] MD [address] [facility] [address] [place], [place] [address] Physician Ophthalmology 01/21/22 Neil Kent MD [address] [place], [place] [address] Dermatology 02/24/22 Roney Story DPM [address] [employer] [facility] [address] [place], [place] [address] Assigned Musculoskeletal Provider 03/20/22 08/13/22 Erica Farrell APRN HOTEL MAINTENANCE TECHNICIAN [address] [place] [address] Assigned Heart and Vascular Provider 04/03/22 04/16/22 Diana Desir, [facility] [address] [place] [address] Assigned MTM Pharmacist 04/07/22 Jelena David OD [address] [facility] [place] [place] [address] Assigned Surgical Provider 05/08/22 10/08/22 Galo Burrell MD Assigned Heart and Vascular Provider 04/17/22 06/11/22 Livan Sharif MD [address] [facility] [address] [place] [address] Cardiovascular Disease 05/14/22 Livan Sharif MD [address] [facility] [address] [place] [address] Assigned Heart and Vascular Provider 06/12/22 07/23/22 Catherine Cm MD [address] [facility] [place] [address] Cardiovascular Disease 07/21/22 Valery Veronica, PA-C [address] [place] [address] Physician Small Appliance Assembly Supervisor Dermatology 07/21/22 Catherine Cm MD [address] [place] [phone] [place] [address] Assigned Heart and Vascular Provider 07/24/22 11/05/22 Johnny Murillo MD [address] [place] [address] Assigned Musculoskeletal Provider 08/14/22 10/08/22 Brea Quinn APRN HOTEL MAINTENANCE TECHNICIAN [address] [place] [address] Nurse Practitioner Dermatology 09/21/22 Brea Quinn APRN HOTEL MAINTENANCE TECHNICIAN [address] [place] [address] [place] [address] Assigned Surgical Provider 10/09/22 [place] [address] [place] [address] Assigned Musculoskeletal Provider 10/09/22 Livan Sharif MD [address], [facility] [address] [place] [address] Assigned Heart and Vascular Provider 11/06/22 11/12/22 Catherine Cm MD [address] [facility] [address] [place] [address] Assigned Heart and Vascular Provider 11/13/22 05/27/23 Sydnie Martinez RN Personal Advocate & Liaison (PAL) Family Medicine 03/28/23 07/31/23 Alfonso Renteria MD [address] [facility] 200 [place] [address] Assigned Neuroscience Provider 04/02/23 Cheng Todd PA-C [address] [place] [address] [id number] Assigned PCP 04/30/23 07/15/23 Radha Lomeli APRN HOTEL MAINTENANCE TECHNICIAN [address] [place] [address] Assigned Heart and Vascular Provider 05/28/23 Jelena David OD [address] [facility] [id number] Ophthalmology 06/15/23 Pao Joseph RN Personal Advocate & Liaison (PAL) Nurse 08/01/23 11/07/23 Esha Grimm PAUhceC [address] [place] [address] Assigned PCP 07/16/23 Valery Veronica PA-C [address] [place] [address] Physician Small Appliance Assembly Supervisor Dermatology 09/19/23 Rey Tay MD [address] [place] [address] MD Gastroenterology 09/20/23 Rocky Zepeda DO [address] [place] [address]1745 Physician Gastroenterology 09/20/23 Philip Dumont MD [address] [place] [address] Physician Ophthalmology 09/22/23 Meredith Carrera PA-C [address] [place] [address] Assigned Gastroenterology Provider 11/01/23 Neil [place] MD [address] [address] Dermatology 11/02/23 [place] [address] [place] [address] Neurological Surgery 12/26/23 Audrey Waite PA-C [address] [place] [address] Physician Small Appliance Assembly Supervisor Dermatology 02/28/24 documented as of this encounter
--- OUTSIDE RECORDS SUMMARY | 2024-03-23 16:09 | XMS_ITS | Encounter Summary ---
Author Organization [facility] Address [address] [place] [address] Care Team Providers Care Director Of Hotel Operations Name Role Phone Rakesh Cid PA-C Unavailable + Rakesh Cid PA-C Primary Care Provider Lita Oseugera Unavailable Unavailable Rakesh Cid PA-C Unavailable + Isaura Lamar RN Unavailable Unavailable Lita Oseguera Unavailable Unavailable Marija Edgar APRN SUBSTATION OPERATOR HELPER GENERATION Primary Care Provider + Chanelle Mccann APRN CN Unavailab le Lesley Moody CHW Unavailable [phone] Kyara De La Fuente RN Unavailable [phone] Marija Edgar APRN SUBSTATION OPERATOR HELPER GENERATION Unavailable [phone] Mynor Broussard MD Unavailable Keisha Dotson MD Unavailable [phone] Mary Mejia Unavailable Unavailable Stacey Briones SHIP ERECTOR Unavailable [phone] Lesley Moody CHW Unavailable +[phone] Mary Mejia Unavailable Unavailable Lita Oseguera Unavailable Unavailable Galo Burrell MD Unavailable Unavailable Cristina Wood Unavailable Lesley Moody [facility] Unavailable Meredith Bedoya Unavailable Unavailable Cristina Wood Unavailable Diana Desir [facility] Unavailable [phone] Rain Galaviz PA-C Unavailable [phone] Summer Lara MD Unavailable [phone] Summer Lara MD Unavailable +[phone] Summer Lara MD Unavailable +[phone] Tavia Wyatt MD Unavailable Unavailable Johnny Murillo MD Unavailable [phone] Erica Farrell APRN SUBSTATION OPERATOR HELPER GENERATION Unavailable Teresita Bean [facility] Unavailable Tavia Wyatt MD Unavailable Unavailable Diana Desir [facility] Unavailable [phone] Rich Barrett MD Unavailable [phone] Neil Kent MD Unavailable Roney Story DPM Unavailable [phone] Erica Farrell APRN SUBSTATION OPERATOR HELPER GENERATION Unavailable + Diana Desir [facility] Unavailable [phone] Jelena David OD Unavailable Galo Burrell MD Unavailable Unavailable Livan Sharif MD Unavailable Livan Sharif MD Unavailable + Catherine Cm MD Unavailable + Valery Veronica PA-C Unavailable [phone] Catherine Cm MD Unavailable + Johnny Murillo MD Unavailable [phone] Brea Quinn [employer] SUPERVISOR SUBSTATION OPERATOR HELPER GENERATION Unavailable [phone] Brea Quinn [employer] SUPERVISOR SUBSTATION OPERATOR HELPER GENERATION Unavailable [phone] Jose Francisco Johnson MD Unavailable Livan Sharif MD Unavailable Catherine Cm MD Unavailable + Sydnie Martinez RN Unavailable Unavailable Alfonso Renteria MD Unavailable + [phone] Esha Grimm PA-C Primary Care Provider Cheng Todd PA-C Unavailable [phone] Armani Radha Sia [employer] SUPERVISOR SUBSTATION OPERATOR HELPER GENERATION Unavailable [phone] Jelena David OD Unavailable Pao Joseph RN Unavailable Unavailable Esha Grimm PA-C Unavailable [phone] Valery Veronica PA-C Unavailable +[phone] Rey Tay MD Unavailable Rocky Zepeda DO Unavailable Philip Dumont MD Unavailable [phone] Meredith Carrera PA-C Unavailable [phone] Neil Kent MD Unavailable Juan Pablo Emmanuel MD Unavailable [phone] Audrey Waite PA-C Unavailable [phone] Reason for Visit * Reason Onset Date Comments Appointment 02/13/2020 Anxiety Encounter Details Date Type Department Care Team (Late st Contact Info) Description 02/13/2020 [facility] [address] [address] Rakesh Cid PA-C [address] [place] [address] Appointment (Anxiety) Social History Tobacco Use Types [...] Forrester RN - 02/15/2020 2:28 PM CDT [id number] message sent to patient to schedule a [...] Office Visit [facility] [address] [place] [phone] Ebony Cid, ELECTRICAL ASSEMBLIES SUPERVISOR SUBSTATION OPERATOR HELPER GENERATION [address] [place] [address] 03/27/2024 11:00 AM CDT Office Visit [facility] [address] [place] [phone] Frankie Jelena Garcia, OD [address] [facility] [place] [address] 03/29/2024 3:30 PM CDT Therapy Visit [facility] [address] [facility] [address] [place] [phone] Ingris Thompson, PT [facility] [address] [place] [address] [address] [place] [address] 04/05/2024 2:10 PM CDT Therapy Visit [facility] [address] [facility] [address] [place] [phone] Ingris Thompson, PT [facility] [address] [place] [address] [address] [place], [place] [phone] 04/19/2024 2:45 PM CDT Office Visit [facility] [address] [place] [phone] Audrey Waite PA-C [address] [facility] [address], [facility] [address]03 [place] [address] 05/08/2024 1:30 PM CDT Office Visit [facility] [address] [place] [phone] Lauren Claudio PA-C [address] [place] [address] Esha Grimm PA-C [address] [facility] [address] 06/21/2024 2:00 PM FOOD PREPARATION WORKER Office Visit [facility] [address] [facility], [address] [place] [address] [place] [address] [place] [address] Johnny Penn MD [address] [facility] [place] [address] documented as of this encounter Visit Diagnoses Not on filedocumented in this encounter Additional Health Concerns Infection Onset Date Last Indicated Resolved Time Rule Out COVID-19 07/30/2020 07/30/2020 07/30/2020 7:11 PM FOOD PREPARATION WORKER Rule Out COVID-19 08/30/2020 08/30/2020 08/30/2020 5:05 PM FOOD PREPARATION WORKER Rule Out COVID-19 09/24/2020 09/24/2020 09/24/2020 9:24 AM CDT Rule Out COVID-19 11/05/2020 11/05/2020 11/06/2020 1:09 PM CDT Rule Out COVID-19 05/11/2021 05/11/2021 05/13/2021 10:18 AM CDT Rule Out COVID-19 07/13/2021 07/13/2021 07/14/2021 3:04 PM FOOD PREPARATION WORKER Rule Out COVID-19 07/18/2021 07/18/2021 07/20/2021 1:56 PM FOOD PREPARATION WORKER COVID-19 07/18/2021 07/18/2021 08/08/2021 11:3 9 PM FOOD PREPARATION WORKER Rule Out COVID-19 12/18/2021 12/18/2021 12/19/2021 11:34 AM CDT Rule Out COVID-19 02/24/2022 02/24/2022 02/25/2022 1:08 PM CDT Rule Out COVID-19 04/26/2022 04/26/2022 04/26/2022 6:47 AM CDT Rule Out COVID-19 05/17/2022 05/17/2022 05/17/2022 10:20 PM FOOD PREPARATION WORKER Rule Out COVID-19 06/09/2022 06/09/2022 06/09/2022 9:35 AM FOOD PREPARATION WORKER COVID-19 06/09/2022 06/09/2022 06/30/2022 11:4 1 PM FOOD PREPARATION WORKER Rule Out COVID-19 11/10/2022 11/10/2022 11/11/2022 12:17 PM CDT Rule Out COVID-19 03/07/2023 03/07/2023 03/07/2023 1:20 PM CDT Rule Out COVID-19 12/26/2023 12/26/2023 12/26/2023 9:50 AM CDT Assessment Noted Time PHQ-9 Depression Total Score: 1 09/11/19 1:42 PM FOOD PREPARATION WORKER documented as of this encounter Care Teams Director Of Hotel Operations Relationship Specialty Start Date End Date Rakesh Cid PA-C [address] [place] [address] PCP - General Physician Moving Consultant - Medical 05/14/19 04/29/20 Marija Edgar APRN CNP PCP - General Nurse Practitioner 04/30/20 04/14/23 Esha Grimm PA-C [address] [place] [phone] PCP - General Family Medicine 05/04/23 Rakesh Cid PA-C [address] [place] [address] Assigned PCP 05/06/19 03/01/20 Lita Oseguera Personal Advocate & Liaison (PAL) 02/28/20 03/27/23 Rakesh Cid PA-C [address] [place] [address] Assigned PCP 03/02/20 06/07/20 Isaura Lamar, RN Personal Advocate & Liaison (PAL) Family Practice 04/03/20 04/06/20 Lita Oseguera Personal Advocate & Liaison (PAL) 04/07/20 04/29/20 Chanelle Mccann APRN CNM [address] [place] [address] Assigned OBGYN Provider 05/02/2005/09 Lesley Moody W Community Health Worker 05/30/2005/12 Kyara De La Fuente, VJ Specialty Welcome Center Attendant Neurology 06/04/20 03/05/21 Marija Edgar APRN SUBSTATION OPERATOR HELPER GENERATION Assigned PCP 06/08/20 04/29/23 Mynor Broussard MD [address] [address] Assigned Surgical Provider 06/01/20 11/28/21 Keisha Dotson MD [address] [place] [address] Assigned Neuroscience Provider 06/04/20 04/01/23 Mary Mejia Financial Resource Worker 08/07/20 08/21/20 Stacey Briones, [facility] Lead Welcome Center Attendant Primary Care - CC 08/11/2012/30 Lesley Moody, [facility] Community Health Worker 08/11/2010/01 Mary Mejia Financial Resource Worker 09/02/20 10/06/20 Lita Oseguera Personal Advocate & Liaison (PAL) Family Medicine 09/10/20 09/21/20 Galo Burrell MD Assigned Heart and Vascular Provider 10/05/20 04/02/22 Cristina Wood Financial Resource Worker 10/07/20 10/14/20 Lesley Moody, [facility] Community Health Worker 10/23/2012/30 Meredith Bedoya Financial Resource Worker 10/23/20 11/23/20 Cristina Wood Financial Resource Worker 02/09/21 02/09/21 Diana Desir, [facility] [address] [place], [place] [address] Pharmacist Pharmacist 04/17/21 Rain Galaviz PA-C [address] [place] [address] [address] [place] [place], [place] [phone] Physician Moving Consultant Dermatology 04/28/21 Summer Lara MD [address] [place] [address] [phone] Assigned OBGYN Provider 05/10/2105/23 Summer Lara MD [address] [place] [address] [phone] Assigned OBGYN Provider 05/31/21 2 Summer Lara MD [address] [place] [address] Assigned OBGYN Provider 05/24/2105/30 Tavia Wyatt MD [address] [place] [address] Dermatology 07/14/21 Johnny Murillo MD [address] [place] [address] Assigned Musculoskeletal Provider 08/30/21 03/17/22 Erica Farrell APRN SUBSTATION OPERATOR HELPER GENERATION [address] [facility] [address] [place] [address] Nurse Practitioner Cardiovascular Disease 09/09/21 Teresita Bean [facility] [address] [place], [place] [phone] Pharmacist Pharmacist 09/24/21 09/29/21 Tavia Wyatt MD Assigned Surgical Provider 11/29/21 05/07/22 [facility] [address] [place] [address] Assigned MTM Pharmacist 01/02/22 Rich Barrett MD [address] [address]58[address] Physician Ophthalmology 01/21/22 Neil Kent MD [address] [place] [address] [phone] Dermatology 02/24/22 oRney Story DPM [address] [facility] [address] [place] [address] Assigned Musculoskeletal Provider 03/20/22 08/13/22 Erica Farrell APRN SUBSTATION OPERATOR HELPER GENERATION [address] [place] [address] Assigned Heart and Vascular Provider 04/03/22 04/16/22 [facility] [address] [place] [address] Assigned MTM Pharmacist 04/07/22 Jelena David OD [address] [facility] [place] [address] Assigned Surgical Provider 05/08/22 10/08/22 Galo Burrell MD Assigned Heart and Vascular Provider 04/17/22 06/11/22 Livan Sharif MD [address] [place] [address] Cardiovascular Disease 05/14/22 Livan Sharif MD [address] [place] [address] Assigned Heart and Vascular Provider 06/12/22 07/23/22 Catherine Cm MD [address] [place] 227045 Cardiovascular Disease 07/21/22 Valery Veronica PA-C [address] [place], [place] 526[address] Physician Moving Consultant Dermatology 07/21/22 Catherine Cm MD [address] [facility] [place] [address] Assigned Heart and Vascular Provider 07/24/22 11/05/22 Johnny Murillo MD [facility] [address] [phone] Assigned Musculoskeletal Provider 08/14/22 10/08/22 Brea Quinn APRN SUBSTATION OPERATOR HELPER GENERATION [address] [place] [address] [phone] Nurse Practitioner Dermatology 09/21/22 Brea Quinn APRN SUBSTATION OPERATOR HELPER GENERATION [address] [place] [address] [phone] Assigned Surgical Provider 10/09/22 [place] [address] [place] [address] 121197 Assigned Musculoskeletal Provider 10/09/22 Livan Sharif MD [address] [facility] [address] [place] [phone] Assigned Heart and Vascular Provider 11/06/22 11/12/22 Catherine Cm MD [address] [facility] [address] [place] 159425 Assigned Heart and Vascular Provider 11/13/22 05/27/23 Sydnie Martinez, RN Personal Advocate & Liaison (PAL) Family Medicine 03/28/23 07/31/23 Alfonso Renteria MD [address] [facility] [address] [place] [address] Assigned Neuroscience Provider 04/02/23 Cheng Todd PA-C [address] [place] [address] [phone] Assigned PCP 04/30/23 07/15/23 Radha Lomeli APRN SUBSTATION OPERATOR HELPER GENERATION [address] [facility] [address] [place], [place] 3927[address] Assigned Heart and Vascular Provider 05/28/23 Jelena David OD [address] [facility] [place] [address] Ophthalmology 06/15/23 Pao Joseph, VJ Personal Advocate & Liaison (PAL) Nurse 08/01/23 11/07/23 Esha Grimm PAUcheC [address] [place] [phone] Assigned PCP 07/16/23 Valery Veronica PA-C [address] [place] [address] [phone] Physician Moving Consultant Dermatology 09/19/23 Rey Tay MD [address] [place] [address] [phone] Gastroenterology 09/20/23 Rocky Zepeda DO 500 [place] [address] Physician Gastroenterology 09/20/23 Philip [place] MD 516 [place] [address] Physician Ophthalmology 09/22/23 Meredith Carrera PA-C 909 [place], [place] 905025 Assigned Gastroenterology Provider 11/01/23 Neil Kent MD [address] [address] Dermatology 11/02/23 [place] [address] [place] [address] Neurological Surgery 12/26/23 Audrey Waite PA-C 500 [place] [address] Physician Moving Consultant Dermatology 02/28/24 documented as of this encounter
--- OUTSIDE RECORDS SUMMARY | 2024-03-23 16:09 | XMS_ITS | Encounter Summary ---
Author Organization [facility] Address [address] [place] [address] Care Team Providers Care Cement Fittings Maker Name Role Phone Rakesh Cid PA-C Primary Care Provider Lita Oseguera Unavailable Unavailable Rakesh Cid PA-C Unavailable [phone] Lita Oseguera Unavailable Unavailable Marija Edgar APRN AIRCRAFT ENGINE SPECIALIST Primary Care Provider + Chanelle Mccann APRN CNM Unavailab le Lesley Moody CHW Unavailable [phone] Kyara De La Fuente RN Unavailable [phone] Marija Edgar APRN AIRCRAFT ENGINE SPECIALIST Unavailable [phone] Mynor Broussard MD Unavailable [phone] Keisha Dotson MD Unavailable Mary Mejia Unavailable Unavailable Stacey Briones OVERHEAD CRANE TRUCK LOADER Unavailable [phone] Lesley Moody CHKamryn Unavailable Mary Mejia Unavailable Unavailable Lita Oseguera Unavailable Unavailable Galo Burrell MD Unavailable Unavailable Cristina Wood Unavailable Lesley Moody [facility] Unavailable Meredith Bedoya Unavailable Unavailable Cristina Wood Unavailable Diana Desir [facility] Unavailable [phone] Rain Galaviz PA-C Unavailable Summer Lraa MD Unavailable Summer Lara MD Unavailable [phone] Summer Lara MD Unavailable [phone] Tavia Wyatt MD Unavailable Unavailable Johnny Murillo MD Unavailable [phone] Erica Farrell APRN AIRCRAFT ENGINE SPECIALIST Unavailable Teresita Bean [facility] Unavailable Tavia Wyatt MD Unavailable Unavailable Diana Desir [facility] Unavailable [phone] Rich Barrett MD Unavailable Neil Kent MD Unavailable Roney Story DPM Unavailable Erica Farrell APRN AIRCRAFT ENGINE SPECIALIST Unavailable Diana Desir [facility] Unavailable [phone] Jelena David Unavailable Galo Burrell MD Unavailable Unavailable Livan Sharif MD Unavailable Livan Sharif MD Unavailable + Catherine Cm MD Unavailable + Valery Veronica-C Unavailable [phone] Catherine Cm MD Unavailable + Johnny Murillo MD Unavailable [phone], Brea P BREAD MOLDER AIRCRAFT ENGINE SPECIALIST Unavailable CheyenneBrea Jama BREAD MOLDER AIRCRAFT ENGINE SPECIALIST Unavailable Jose Francisco Johnson MD Unavailable Livan Sharif MD Unavailable Catherine Cm MD Unavailable + Sydnie Martinez RN Unavailable Unavailable Alfonso Renteria MD Unavailable [phone] Esha Grimm PA-C Primary Care Provider Cheng Todd PA-C Unavailable Armani Radha Sia BREAD MOLDER AIRCRAFT ENGINE SPECIALIST Unavailable Frankie Jelena Garcia OD Unavailable [phone] Pao Joseph RN Unavailable Unavailable Esha Grimm PA-C Unavailable [phone] Valery Veronica PA-C Unavailable [phone] Rey Tay MD Unavailable Rocky Zepeda DO Unavailable Philip Dumont MD Unavailable Meredith Carrera PA-C Unavailable [phone] Neil Kent MD Unavailable Juan Pablo Emmanuel MD Unavailable Audrey Waite PA-C Unavailable Encounter Details Date Type Department Care Team (Late st Contact Info) Description 04/25/2020 [facility] [address] [address] Rakesh Cid PA-C [address] [place] [address] Social History Tobacco Use Types [...] [facility] [address] [place] [address] [address] [place] [address] Ebony Cid, BREAD MOLDER [facility] [address] [place] [address] 03/27/2024 11:00 AM CDT Office Visit [facility] [address] [facility] [address] [place] [phone] Jelena Dvaid, [address] [facility] [place] [address] 03/29/2024 3:30 PM CDT Therapy Visit [facility] [address] [place] [address] [address] [place] [phone] Ingris Thompson, PT [facility] [address] [place] [address] [address] [place] [address] 04/05/2024 2:10 PM CDT Therapy Visit [facility] [address] [facility] [address] [place] [address] Ingris Thompson, PT [facility] [address] [facility] [address] [place], [place] [address] 04/19/2024 2:45 PM CDT Office Visit [facility] [address] [place] [phone] Audrey Waite PA-C [address], [facility] 603 [place] [address] 05/08/2024 1:30 PM CDT Office Visit [facility] [address] [place] [phone] Lauren Claudio PA-C [address] [place], [place] [phone] Esha Grimm PA-C [address] [place] [phone] 06/21/2024 2:00 PM AGRICULTURE LABORATORY TECHNICIAN Office Visit [facility] Neurology Clinics - [address], [address] [place] [phone] [place] [address] [place], [place] [phone] Johnny Penn MD [address] [place] [phone] documented as of this encounter Visit Diagnoses Not on filedocumented in this encounter Additional Health Concerns Infection Onset Date Last Indicated Resolved Time Rule Out COVID-19 07/30/2020 07/30/2020 07/30/2020 7:11 PM AGRICULTURE LABORATORY TECHNICIAN Rule Out COVID-19 08/30/2020 08/30/2020 08/30/2020 5:05 PM AGRICULTURE LABORATORY TECHNICIAN Rule Out COVID-19 09/24/2020 09/24/2020 09/24/2020 9:24 AM CDT Rule Out COVID-19 11/05/2020 11/05/2020 11/06/2020 1:09 PM CDT Rule Out COVID-19 05/11/2021 05/11/2021 05/13/2021 10:18 AM CDT Rule Out COVID-19 07/13/2021 07/13/2021 07/14/2021 3:04 PM AGRICULTURE LABORATORY TECHNICIAN Rule Out COVID-19 07/18/2021 07/18/2021 07/20/2021 1:56 PM AGRICULTURE LABORATORY TECHNICIAN COVID-19 07/18/2021 07/18/2021 08/08/2021 11:3 9 PM AGRICULTURE LABORATORY TECHNICIAN Rule Out COVID-19 12/18/2021 12/18/2021 12/19/2021 11:34 AM CDT Rule Out COVID-19 02/24/2022 02/24/2022 02/25/2022 1:08 PM CDT Rule Out COVID-19 04/26/2022 04/26/2022 04/26/2022 6:47 AM CDT Rule Out COVID-19 05/17/2022 05/17/2022 05/17/2022 10:20 PM AGRICULTURE LABORATORY TECHNICIAN Rule Out COVID-19 06/09/2022 06/09/2022 06/09/2022 9:35 AM AGRICULTURE LABORATORY TECHNICIAN COVID-19 06/09/2022 06/09/2022 06/30/2022 11:4 1 PM AGRICULTURE LABORATORY TECHNICIAN Rule Out COVID-19 11/10/2022 11/10/2022 11/11/2022 12:17 PM CDT Rule Out COVID-19 03/07/2023 03/07/2023 03/07/2023 1:20 PM CDT Rule Out COVID-19 12/26/2023 12/26/2023 12/26/2023 9:50 AM CDT Assessment Noted Time PHQ-9 Depression Total Score: 12 020 2:40 PM CDT documented as of this encounter Care Teams Cement Fittings Maker Relationship Specialty Start Date End Date Rakesh Cid PA-C PCP - General Physician Shirt Marker - Medical 05/14/19 04/29/20 Marija Edgar APRN AIRCRAFT ENGINE SPECIALIST [address] [place] [address] PCP - General Nurse Practitioner 04/30/20 04/14/23 Esha Grimm PA-C [address] [place] [phone] PCP - General Family Medicine 05/04/23 Lita Oseguera Personal Advocate & Liaison (PAL) 02/28/20 03/27/23 Rakesh Cid PA-C [address] [place] [address] Assigned PCP 03/02/20 06/07/20 Lita Oseguera Personal Advocate & Liaison (PAL) 04/07/20 04/29/20 Chanelle Mccann APRN CNM [address] [facility], [facility] [address] [place] [address] Assigned OBGYN Provider 05/02/2005/09 Lesley Moody, CHW Community Health Worker 05/30/2005/12 Kyara De La Fuente, RN Specialty Tobacco Stemmer Machine Neurology 06/04/20 03/05/21 Marija Edgar APRN AIRCRAFT ENGINE SPECIALIST [address] [place] [address] Assigned PCP 06/08/20 04/29/23 Mynor Broussard MD [address] 747[address] Assigned Surgical Provider 06/01/20 11/28/21 Keisha Dotson MD [address] [place] [address] Assigned Neuroscience Provider 06/04/20 04/01/23 Mary Mejia Financial Resource Worker 08/07/20 08/21/20 Stacey Briones, [facility] Lead Tobacco Stemmer Machine Primary Care - CC 08/11/2012/30 Lesley Moody, [facility] Community Health Worker 08/11/2010/01 Mary Mejia Financial Resource Worker 09/02/20 10/06/20 Lita Oseguera Personal Advocate & Liaison (PAL) Family Medicine 09/10/20 09/21/20 Galo Burrell MD Assigned Heart and Vascular Provider 10/05/20 04/02/22 Cristina Wood Financial Resource Worker 10/07/20 10/14/20 Lesley Moody, [facility] Community Health Worker 10/23/2012/30 Meredith Bedoya Financial Resource Worker 10/23/20 11/23/20 Cristina Wood Financial Resource Worker 02/09/21 02/09/21 Diana Desir, [facility] [address] [place] [address] Pharmacist Pharmacist 04/17/21 Rain Galaviz PA-C [address] [place] [address] [address] [facility] [place] [address] Physician Shirt Marker Dermatology 04/28/21 Summer Lara MD [address] [place] [address] Assigned OBGYN Provider 05/10/2105/23 Summer Lara MD [address] [place] [address] Assigned OBGYN Provider 05/31/21 Summer Lara MD [address] [place] [address] Assigned OBGYN Provider 05/24/2105/30 Tavia Wyatt MD [address] [place] [address] Dermatology 07/14/21 Johnny Murillo MD [address] [place] [address] Assigned Musculoskeletal Provider 08/30/21 03/17/22 Erica Farrell APRN AIRCRAFT ENGINE SPECIALIST [address] [facility] [address] [place] [address] Nurse Practitioner Cardiovascular Disease 09/09/21 Teresita Bean, [facility] [address] [place] [id number] Pharmacist Pharmacist 09/24/21 09/29/21 Tavia Wyatt MD Assigned Surgical Provider 11/29/21 05/07/22 Diana Desir, [facility] [address] [place] [address] Assigned MTM Pharmacist 01/02/22 Rich Barrett MD [address] 814805 Physician Ophthalmology 01/21/22 Neil Kent MD [address] [place], [place] 597405 Dermatology 02/24/22 Roney Story DPM [address] [facility] [address] [place] [address] Assigned Musculoskeletal Provider 03/20/22 08/13/22 Erica Farrell APRN AIRCRAFT ENGINE SPECIALIST [address] [place] [address] Assigned Heart and Vascular Provider 04/03/22 04/16/22 Diana Desir, [facility] [address] [place] [address] Assigned MTM Pharmacist 04/07/22 Jelena David OD [address] [facility] [id number] Assigned Surgical Provider 05/08/22 10/08/22 Galo Burrell MD Assigned Heart and Vascular Provider 04/17/22 06/11/22 Livan Sharif MD [address], [facility] [address] [place] [address] Cardiovascular Disease 05/14/22 Livan Sharif MD [address], [place] [address] [place] [address] Assigned Heart and Vascular Provider 06/12/22 07/23/22 Catherine Cm MD [address] [place] [address] Cardiovascular Disease 07/21/22 Valery Veronica, PAUcheC [address] [place] [address] Physician Shirt Marker Dermatology 07/21/22 Catherine Cm MD [address] [facility] [address] [place] [address] Assigned Heart and Vascular Provider 07/24/22 11/05/22 Johnny Murillo MD [address] [place] [address] [id number] Assigned Musculoskeletal Provider 08/14/22 10/08/22 Brea Quinn APRN AIRCRAFT ENGINE SPECIALIST [address] [place] [address] 940425 Nurse Practitioner Dermatology 09/21/22 Brea Quinn APRN AIRCRAFT ENGINE SPECIALIST [address] [place] [address] [place] [id number] Assigned Surgical Provider 10/09/22 [place] [address] [facility] [address] [place] [address] Assigned Musculoskeletal Provider 10/09/22 Livan Sharif MD [address], [facility] [address] [place] [address] Assigned Heart and Vascular Provider 11/06/22 11/12/22 Catherine Cm MD [address] [place] [address] [place] [address] Assigned Heart and Vascular Provider 11/13/22 05/27/23 Sydnie Martinez RN Personal Advocate & Liaison (PAL) Family Medicine 03/28/23 07/31/23 Alfonso Renteria MD [address] [facility] 200 [place] [address] Assigned Neuroscience Provider 04/02/23 Cheng Todd PA-C [address] [place] [address] Assigned PCP 04/30/23 07/15/23 Radha Lomeli APRN AIRCRAFT ENGINE SPECIALIST [address] [place] [id number] Assigned Heart and Vascular Provider 05/28/23 Jelena David OD [facility] [facility] [address] Ophthalmology 06/15/23 Pao Joseph, VJ Personal Advocate & Liaison (PAL) Nurse 08/01/23 11/07/23 Esha Grimm PA-C [address] [place] [address]817[address] Assigned PCP 07/16/23 Valery Veronica PA-C [address] [place] [address] 051875 Physician Shirt Marker Dermatology 09/19/23 Rey Tay MD [address] [place] [address] MD Gastroenterology 09/20/23 Rocky Zepeda DO [address] [place] [address] 426805 Physician Gastroenterology 09/20/23 Philip Dumont MD [address] [place] [address] 208165 Physician Ophthalmology 09/22/23 Meredith Carrera PA-C [address] [place] [address] Assigned Gastroenterology Provider 11/01/23 Neil Kent MD [address] [address] Dermatology 11/02/23 [place] [address] [place] [id number] Neurological Surgery 12/26/23 Audrey Waite PA-C [address] [place] [address] 535125 Physician Shirt Marker Dermatology 02/28/24 documented as of this encounter
--- OUTSIDE RECORDS SUMMARY | 2024-03-23 16:09 | XMS_ITS ---
Author Organization [place] Address [address] [place] [address] Care Team Providers Care Technology Internship Name Role Phone ThangKendrickDiana T [facility] Unavailable [phone] Rain Galaviz-C Unavailable Tavia Wyatt MD Unavailable Unavailable Erica Farrell APRN THERAPIST'S ASSISTANT Unavailable Rich Barrett MD Unavailable Neil Kent MD Unavailable Diana Desir [facility] Unavailable [phone] Livan Sharif MD Unavailable Catherine Cm MD Unavailable + Valery Veronica-C Unavailable [phone] Brea Quinn PAYROLL COORDINATOR THERAPIST'S ASSISTANT Unavailable Brea Quinn PAYROLL COORDINATOR THERAPIST'S ASSISTANT Unavailable [phone] Jose Francisco Johnson MD Unavailable Alfonso Renteria MD Unavailable + [phone] Esha Grimm PA-C Primary Care Provider [phone] Radha Lomeli PAYROLL COORDINATOR THERAPIST'S ASSISTANT Unavailable [phone] Jelena David OD Unavailable [phone] Esha Grimm PA-C Unavailable [phone] Valery Veronica PA-C Unavailable Rey Tay MD Unavailable Rocky Zepeda DO Unavailable Philip Dumont MD Unavailable Meredith Carrera PA-C Unavailable Neil Kent MD Unavailable Juan Pablo Emmanuel MD Unavailable Audrey Waite PA-C Unavailable Primary Care Care Coordination Status:Declined (Declined) Start date:12/27/2023 End date:12/27/2023 Decline reason:Not interested Continued Care and Services Coordination
--- OUTSIDE RECORDS SUMMARY | 2024-03-23 16:09 | XMS_ITS | Encounter Summary ---
Author Organization [place] Address [address] [place] [address] Care Team Providers Care Tail Trimmer Name Role Phone Rakesh Cid PA-C Unavailable + Rakesh Cid PA-C Primary Care Provider Lita Oseguera Unavailable Unavailable Rakesh Cid PA-C Unavailable + Isaura Lamar RN Unavailable Unavailable Lita Oseguera Unavailable Unavailable Marija Edgar APRN EDGE BEADER Primary Care Provider + Chanelle Mccann APRN CN Unavailab le Lesley Moody CHW Unavailable [phone] Kyara De La Fuente RN Unavailable [phone] Marija Edgar APRN EDGE BEADER Unavailable [phone] Mynor Broussard MD Unavailable [phone] Keisha Dotson MD Unavailable [phone] Mary Mejia Unavailable Unavailable Stacey Briones BIRD KEEPER Unavailable [phone] Lesley Moody CHW Unavailable [phone] Mary Mejia Unavailable Unavailable Lita Oseguera Unavailable Unavailable Galo Burrell MD Unavailable Unavailable Cristina Wood Unavailable Lesley Moody [facility] Unavailable Meredith Bedoya Unavailable Unavailable Cristina Wood Unavailable Diana Desir [facility] Unavailable [phone] Rain Galaviz PA-C Unavailable [phone] Summer Lara MD Unavailable [phone] Summer Lara MD Unavailable +[phone] Summer Lara MD Unavailable [phone] Tavia Wyatt MD Unavailable Unavailable Johnny Murillo MD Unavailable [phone] Erica Farrell APRN EDGE BEADER Unavailable Teresita Bean [facility] Unavailable Tavia Wyatt MD Unavailable Unavailable Diana Desir [facility] Unavailable [phone] Rich Barrett MD Unavailable [phone] Neil Kent MD Unavailable Roney Story DPM Unavailable [phone] Erica Farrell APRN EDGE BEADER Unavailable + Diana Desir [facility] Unavailable [phone] Jelena David OD Unavailable Galo Burrell MD Unavailable Unavailable Livan Sharif MD Unavailable Livan Sharif MD Unavailable + Catherine Cm MD Unavailable + Valery Veronica PA-C Unavailable [phone] Catherine Cm MD Unavailable + Johnny Murillo MD Unavailable [phone] Brea Quinn ETHYLBENZENE CONVERTER OPERATOR EDGE BEADER Unavailable [phone] Brea Quinn ETHYLBENZENE CONVERTER OPERATOR EDGE BEADER Unavailable [phone] Jose Francisco Johnson MD Unavailable Livan Sharif MD Unavailable Catherine Cm MD Unavailable + Sydnie Martinez RN Unavailable Unavailable Alfonso Renteria MD Unavailable Esha Grimm PA-C Primary Care Provider Cheng Todd PA-C Unavailable Radha Lomeli ETHYLBENZENE CONVERTER OPERATOR EDGE BEADER Unavailable Jelena David OD Unavailable [phone] Pao Joseph RN Unavailable Unavailable Esha Grimm PA-C Unavailable Valery Veronica PA-C Unavailable Rey Tay MD Unavailable Rocky Zepeda DO Unavailable Philip Dumont MD Unavailable [phone] Meredith Carrera PA-C Unavailable [phone] Neil Kent MD Unavailable Juan Pablo Emmanuel MD Unavailable Audrey Waite PA-C Unavailable [phone] Encounter Details Date Type Department Care Team (Late st Contact Info) Description 02/27/[address], [address] [place] [address] Rakesh Cid, PA-C [address] [address] [place] [place] [address] Social History Tobacco Use Types [...] message?: Yes at Home number on file [phone] (home) Violet Jeffrey Patient Sales Representative Groceries documented in this encounter Plan of Treatment Upcoming Encounters Date Type Department Care Team (Late st Contact Info) Description 03/26/2024 11:20 AM CDT Office Visit [facility] [address] [facility] [address] [place] [address] Ebony Cid, ARLENE EDGE BEADER [address] [place] [address] 03/27/2024 11:00 AM CDT Office Visit [facility] [address] [facility] [address] [place] [phone] Jelena David, [place] [address] [facility] [place] [address] 03/29/2024 3:30 PM CDT Therapy Visit [facility] [address] [place] [address] 160 [place] [phone] Ingris Thompson, PT [facility] [address] [place] [address] 106 [place] [address] 04/05/2024 2:10 PM CDT Therapy Visit [facility] [address] [place] [address] 160 [place] [phone] Ingris Thompson, PT [facility] [address] [place] [address] 106 [place], [place] [address] 04/19/2024 2:45 PM CDT Office Visit [address] [phone] Audrey Waite PA-C [address] [facility] [address], [facility] [address]03 [place] [address] 05/08/2024 1:30 PM CDT Office Visit [facility] [address] [place] [phone] Lauren Claudio PA-C [address] [place], [place] [phone] Esha Grimm PA-C [address] [place] [address] 06/21/2024 2:00 PM SET UP PERSON Office Visit [facility] [address] [place] [phone] [place] [address] [place], [place] [address] Johnny Penn MD [address] [facility] [place], [place] [address] documented as of this encounter Visit Diagnoses Not on filedocumented in this encounter Additional Health Concerns Infection Onset Date Last Indicated Resolved Time Rule Out COVID-19 07/30/2020 07/30/2020 07/30/2020 7:11 PM SET UP PERSON Rule Out COVID-19 08/30/2020 08/30/2020 08/30/2020 5:05 PM SET UP PERSON Rule Out COVID-19 09/24/2020 09/24/2020 09/24/2020 9:24 AM CDT Rule Out COVID-19 11/05/2020 11/05/2020 11/06/2020 1:09 PM CDT Rule Out COVID-19 05/11/2021 05/11/2021 05/13/2021 10:18 AM CDT Rule Out COVID-19 07/13/2021 07/13/2021 07/14/2021 3:04 PM SET UP PERSON Rule Out COVID-19 07/18/2021 07/18/2021 07/20/2021 1:56 PM SET UP PERSON COVID-19 07/18/2021 07/18/2021 08/08/2021 11:3 9 PM SET UP PERSON Rule Out COVID-19 12/18/2021 12/18/2021 12/19/2021 11:34 AM CDT Rule Out COVID-19 02/24/2022 02/24/2022 02/25/2022 1:08 PM CDT Rule Out COVID-19 04/26/2022 04/26/2022 04/26/2022 6:47 AM CDT Rule Out COVID-19 05/17/2022 05/17/2022 05/17/2022 10:20 PM SET UP PERSON Rule Out COVID-19 06/09/2022 06/09/2022 06/09/2022 9:35 AM SET UP PERSON COVID-19 06/09/2022 06/09/2022 06/30/2022 11:4 1 PM SET UP PERSON Rule Out COVID-19 11/10/2022 11/10/2022 11/11/2022 12:17 PM CDT Rule Out COVID-19 03/07/2023 03/07/2023 03/07/2023 1:20 PM CDT Rule Out COVID-19 12/26/2023 12/26/2023 12/26/2023 9:50 AM CDT Assessment Noted Time PHQ-9 Depression Total Score: 020 1:14 PM CDT documented as of this encounter Care Teams Tail Trimmer Relationship Specialty Start Date End Date Rakesh Cid PA-C [address] [place] [address] PCP - General Physician Airport Skilled Maintenance Supervisor - Medical 05/14/19 04/29/20 Marija Edgar APRN CNP PCP - General Nurse Practitioner 04/30/20 04/14/23 Esha Grimm PA-C [address] [place] [phone] PCP - General Family Medicine 05/04/23 Rakesh Cid PA-C [address] [place] [address] Assigned PCP 05/06/19 03/01/20 Lita Oseguera Personal Advocate & Liaison (PAL) 02/28/20 03/27/23 Rakesh Cid PA-C [address] [place] [address] Assigned PCP 03/02/20 06/07/20 Isaura Lamar, RN Personal Advocate & Liaison (PAL) Family Practice 04/03/20 04/06/20 Lita Oseguera Personal Advocate & Liaison (PAL) 04/07/20 04/29/20 Chanelle Mccann APRN CNAdam [address] [place] [address] 200 [place] [address] Assigned OBGYN Provider 05/02/2005/09 Lesley Moody, W Community Health Worker 05/30/2005/12 Kyara De La Fuente, VJ Specialty Barge Captain Neurology 06/04/20 03/05/21 Marija Edgar APRN EDGE BEADER Assigned PCP 06/08/20 04/29/23 Mynor Broussard MD [address] [facility] 500 [place] [address] Assigned Surgical Provider 06/01/20 11/28/21 Keisha Dotson MD 9 [place] [address] Assigned Neuroscience Provider 06/04/20 04/01/23 Mary Mejia Financial Resource Worker 08/07/20 08/21/20 Stacey Briones, [facility] Lead Barge Captain Primary Care - CC 08/11/2012/30 Lesley Moody, W Community Health Worker 08/11/2010/01 Mary Mejia Financial Resource Worker 09/02/20 10/06/20 Lita Oseguera Personal Advocate & Liaison (PAL) Family Medicine 09/10/20 09/21/20 Galo Burrell MD Assigned Heart and Vascular Provider 10/05/20 04/02/22 Cristina Wood Financial Resource Worker 10/07/20 10/14/20 Lesley Moody, [facility] Community Health Worker 10/23/2012/30 Meredith Bedoya Financial Resource Worker 10/23/20 11/23/20 Cristina Wood Financial Resource Worker 02/09/21 02/09/21 Diana Desir, [facility] [address] [place], [place] [address] Pharmacist Pharmacist 04/17/21 Rain Galaviz PA-C [address] [place] [address] [address] [place] [place], [place] [phone] Physician Airport Skilled Maintenance Supervisor Dermatology 04/28/21 Summer Lara MD [address] [place] [address] 744164 Assigned OBGYN Provider 05/10/2105/23 Summer Lara MD [address] [place] [address] 212874 Assigned OBGYN Provider 05/31/21 2 Summer Lara MD [address] [place] [address] Assigned OBGYN Provider 05/24/2105/30 Tavia Wyatt MD [address] [place] [address] Dermatology 07/14/21 Johnny Murillo MD [address] [place] [address] Assigned Musculoskeletal Provider 08/30/21 03/17/22 Erica Farrell APRN EDGE BEADER [address] [place], [place] [address] Nurse Practitioner Cardiovascular Disease 09/09/21 Teresita Bean, [facility] [address] [facility] [address] [place] [phone] Pharmacist Pharmacist 09/24/21 09/29/21 Tavia Wyatt MD Assigned Surgical Provider 11/29/21 05/07/22 [facility] [address] [facility] [place] [address] Assigned MTM Pharmacist 01/02/22 Rich Barrett MD [address] [facility] [address] [place], [place] 12[address]95 Physician Ophthalmology 01/21/22 Neil Kent MD [address] [place], [place] [phone] Dermatology 02/24/22 Roney Story DPM [address] [facility] [address] [place], [place] [address] Assigned Musculoskeletal Provider 03/20/22 08/13/22 Erica Farrell APRN EDGE BEADER 1700 [place] [address] Assigned Heart and Vascular Provider 04/03/22 04/16/22 [facility] 3033 [place] [address] Assigned MTM Pharmacist 04/07/22 Jelena David OD [address] [facility] [address] Assigned Surgical Provider 05/08/22 10/08/22 Galo Burrell MD Assigned Heart and Vascular Provider 04/17/22 06/11/22 Livan Sharif MD [address] [place] [address] Cardiovascular Disease 05/14/22 Livan Sharif MD [address] [place] [address] Assigned Heart and Vascular Provider 06/12/22 07/23/22 Catherine Cm MD [address] [place] [address] Cardiovascular Disease 07/21/22 Valery Veronica PA-C [address] [place] [address] Physician Airport Skilled Maintenance Supervisor Dermatology 07/21/22 Catherine Cm MD [address] [facility] [place] [id number] Assigned Heart and Vascular Provider 07/24/22 11/05/22 Johnny Murillo MD [address] [place], [place] [address] Assigned Musculoskeletal Provider 08/14/22 10/08/22 Brea Quinn APRN EDGE BEADER 500 [place] [address] Nurse Practitioner Dermatology 09/21/22 Brea Quinn APRN EDGE BEADER [address] [facility] [place] 274112 Assigned Surgical Provider 10/09/22 [place] [address] [place] [address] 924517 Assigned Musculoskeletal Provider 10/09/22 Livan Sharif MD [address] [place] [address] [place] [address] Assigned Heart and Vascular Provider 11/06/22 11/12/22 Catherine Cm MD [address] [place] [address] [place] [address]195 Assigned Heart and Vascular Provider 11/13/22 05/27/23 Sydnie Martinez RN Personal Advocate & Liaison (PAL) Family Medicine 03/28/23 07/31/23 Alfonso Renteria MD [address] [facility] [address] [place] [address] Assigned Neuroscience Provider 04/02/23 Cheng Todd PA-C [address] [place] [address] Assigned PCP 04/30/23 07/15/23 Radha Lomeli, ARLENE EDGE BEADER [address] [facility] [address] [place], [place] [address] Assigned Heart and Vascular Provider 05/28/23 Jelena David OD [address] [place] [address] Ophthalmology 06/15/23 Pao Joseph, VJ Personal Advocate & Liaison (PAL) Nurse 08/01/23 11/07/23 Esah Grimm PA-C [address] [place] [phone] Assigned PCP 07/16/23 Valery Veronica PA-C [address] [place] [address] 610665 Physician Airport Skilled Maintenance Supervisor Dermatology 09/19/23 Rey Tay MD [address] [place] [address] [phone] Gastroenterology 09/20/23 Rocky Zepeda DO [address] [place] [address] 831835 Physician Gastroenterology 09/20/23 Philip Dumont MD [address] [place] [address] Physician Ophthalmology 09/22/23 Meredith Carrera PA-C [address] [place] [address] Assigned Gastroenterology Provider 11/01/23 Neil Kent MD [address] [address] Dermatology 11/02/23 [place] [address] [place], [place] 33[address]47 Neurological Surgery 12/26/23 Audrey Waite PA-C 500 [place] [address] Physician Airport Skilled Maintenance Supervisor Dermatology 02/28/24 documented as of this encounter
[2024-03-23 16:15] LABS: Troponin, Point-of-Care* 0.01 ng/ml (0.01-0.04)
[2024-03-23 16:18] LABS: Chloride* 103 mmol/L (96-114); Sodium* 137 mmol/L (135-149)
[2024-03-23 16:20] LABS: Creatinine* 0.6 mg/dL (0.5-1.5); Est. Creatinine Clearance* 136.51; Estimated Glomerular Filt Rate 129 ml/min
[2024-03-23 16:21] LABS: Anion Gap 11 mEq/L (7-15); Blood Urea Nitrogen* 12 mg/dL (5-24); Carbon Dioxide* 23 mmol/L (20-32); Glucose* 97 mg/dL (60-115)
[2024-03-23 16:22] LABS: Calcium* 9.9 mg/dL (8.4-10.6)
[2024-03-23 18:42] LABS: Slide Review Acceptable Review (Acceptable); Slide Review Reflex Yes
== END 2024-03-23 17:02 | disposition home or self-care (01) ==
PROVIDERS: Emergency Provider Emergency Medicine Emergency Medical Services
DX: R07.9 Chest pain, unspecified (principal); L40.9 Psoriasis, unspecified
CPT/HCPCS: 36415; 76604; 76705; 80048; 84484; 85025; 93005; 93308; 99284; 99285

== ENCOUNTER 2024-05-27 07:03 | Emergency (ER) | payer MEDICAID, SELFPAY ==
[2024-05-27 07:12] VITALS: BP 117/71; PULSE 78; RESP 18; TEMP 36.6; O2SAT 98; BMI 31.5
--- NOTE | 2024-05-27 07:42 | ED.NURSE ---
Patient requests an EKG. This was completed and is NSR.
--- NOTE | 2024-05-27 08:11 | ED.GENADULT ---
HPI - General Adult General Date Seen: 05/27/24 Chief complaint: Unspecified Complaint, Adult Stated complaint: Left leg and arm burning pain Time Seen by Provider: 05/27/24 08:02 History of Present Illness HPI narrative: 24 yo F with a history of psoriasis, and history of SVT (status post ablation, on metoprolol 12.5 mg b.i.d.) presenting to the ER today with achiness in her left arm and both of her legs (left leg more than right) as well as some episodes palpitations that occurred several hours ago. She notes that she was out drinking last night. She does not normally drink alcohol but there was a republican for a close personal friend. She had more alcohol than she normally would. She got home from drinking about 2:00 a.m.. When she got home she just started to feel very achy in both of her legs especially in the thighs. Now the headache is more in her left eye than the right and also in her left arm and shoulder. She does not recall any heavy exertion, prolonged dancing, fall, injury to her arms or legs. There just achy and she can go to sleep. She was a bit nauseous but did not vomit. Also overnight last night she had some episodes where her heart felt skipping and racing. She knows that her heart will do that sometimes when she drinks because her heart is ?very sensitive?. So she always tries to stay hydrated and avoid excessive alcohol consumption. Now that she is here in the ER her heart is feeling normal. With her leg aches and especially her left arm pain she was worried she might be having a heart problem. She is not having any headache. No back pain. No numbness or tingling in her legs. No weakness of her arms or legs. No abdominal pain. No fever. No recent cough. No other illness. Related Data Home Medications ?Medication ?Instructions ?Recorded ?Confirmed omeprazole 40 mg capsule,delayed 40 mg PO DAILY 04/28/22 05/02/24 release lorazepam 0.5 mg tablet 0.5 mg PO DAILY PRN anxiety 03/18/23 05/02/24 metoprolol succinate 25 mg 12.5 mg PO DAILY 10/15/23 05/02/24 tablet,extended release 24 hr paroxetine HCl 40 mg tablet 40 mg PO QAM 10/15/23 05/02/24 ketoconazole 2 % shampoo topical 05/02/24 05/02/24 tretinoin 0.05 % topical cream applic topical QPM 05/02/24 05/02/24 (Retin-A) Allergies Allergy/AdvReac Type Severity Reaction Status Date / Time vancomycin Allergy Verified 05/02/24 18:19 [facility] Medical History SVT (supraventricular tachycardia) ?I47.10 - Supraventricular tachycardia, unspecified (ICD-10) Social History Smoking Status: Former smoker What tobacco products do you use: cigarettes Smoking quit date/years: <= 15 years ago Do you use any of these nicotine containing products: None and Vaping Products Second hand tobacco smoke exposure: No How often do you have a drink containing alcohol: monthly or less How often do you have six or more drinks on one occasion: Never AUDIT-C Alcohol total score: 1 Non-prescribed substance use: denies use service: No Exam Narrative: Exam Narrative: Constitutional: Appears well-developed and well-nourished. Alert. Conversant and polite. Non toxic. HENT: Head: Atraumatic. Nose: Nose normal. Mouth/Throat: Oral mucosa is clear but dry. Not desiccated or cracked. no trismus. Pharynx normal. Tonsils symmetric. No tonsillar enlargement, erythema, or exudate. Eyes: Conjunctivae normal. EOM normal. Pupils equal, round, and reactive to light. No scleral icterus. Neck: Normal range of motion. Neck supple. No tracheal deviation present. Cardiovascular: Normal rate, regular rhythm. No gallop. No friction rub. No murmur heard. Symmetric radial and PT and DP artery pulses Pulmonary/Chest: Effort normal. No stridor. No respiratory distress. No wheezes. No rales. No rhonchi . No tenderness. Abdominal: Soft. Bowel sounds normal. No distension. No mass. No tenderness. No rebound. No guarding. Musculoskeletal: RUE: Normal range of motion. No deformity LUE: Normal range of motion. No deformity RLE: Normal range of motion. No edema. No deformity LLE: Normal range of motion. No edema. No deformity She does have mild tenderness to palpation of her quad muscles and her thighs. No tenderness in her calfs. Mild tenderness of the left arm fairly diffusely. There is no signs of any swelling, ecchymosis, cyanosis, erythema, pallor of her arms or legs. Neurological: Alert and oriented to person, place, and time. Normal strength. CN II-VII intact. No sensory deficit. GCS eye subscore is 4. GCS verbal subscore is 5. GCS motor subscore is 6. Normal coordination Skin: Skin is warm and dry. Scattered pink/salmon-colored macular lesions on her skin consistent with psoriasis. No signs of infection or shingles. No pallor. Normal capillary refill. Psychiatric: Normal mood. Normal affect. Const: Vital Signs, click to edit/add: Vital Signs - 24 hr 05/27/24 07:12 Temperature 98 F Pulse Rate [Pulse Oximeter] 78 Respiratory Rate 18 Blood Pressure [Ri t Upper Arm] 117/71 Pulse Oximetry 98 Oxygen Delivery Me thod Room Air Course Vital Signs Vital signs: Initial Vital Signs Temperature 98 F 05/27/24 07:12 Temperature Source Temporal Artery Scan 05/27/24 07:12 Pulse Rate 78 05/27/24 07:12 Respiratory Rate 18 05/27/24 07:12 Blood Pressure 117/71 05/27/24 07:12 Blood Pressure Mean 86 05/27/24 07:12 Pulse Oximetry 98 05/27/24 07:12 Oxygen Delivery Method Room Air 05/27/24 07:12 Vital Signs Temperature 98 F 05/27/24 07:12 Pulse Rate 78 05/27/24 07:12 Respiratory Rate 18 05/27/24 07:12 Blood Pressure 117/71 05/27/24 07:12 Pulse Oximetry 98 05/27/24 07:12 Oxygen Delivery Method Room Air 05/27/24 07:12 Temperature 98 F 05/27/24 07:12 Pulse Rate 78 05/27/24 07:12 Respiratory Rate 18 05/27/24 07:12 Blood Pressure 117/71 05/27/24 07:12 Pulse Oximetry 98 05/27/24 07:12 Oxygen Delivery Method Room Air 05/27/24 07:12 Medications Administered Medications: Discontinued Medications Generic Name Dose Route Start Last Admin Trade Name Freq PRN Reason Stop Dose Admin Ibuprofen 600 mg 05/27/24 08:30 05/27/24 08:40 Ibuprofen 600 Mg Tablet PO 05/27/24 08:31 600 mg ONCE ONE Administration Medical Decision Making MDM Narrative Medical decision making narrative: Pleasant 24-year-old female with a history of psoriasis and history of SVT presenting to the ER today with concerns for unexplained achiness affecting both of her thighs and legs, more on the left as well as her left arm. Differential is broad. She does not have any known injury. No history of trauma. There is no associated low back pain or numbness or tingling or weakness in her legs to suggest a cauda equinus syndrome. Consider possible myalgias from an infection however she does not have any other infection symptoms. No fever. No cough or sore throat. No urinary symptoms. She was drinking alcohol last night but does not recall any excessive activity with that or prolonged dancing. Consider possible rhabdo. CK is normal. Kidney function normal. Electrolytes normal. Muscle aches or treat with ibuprofen. She thinks she might be dehydrated after drinking. She is able to push fluids and hydrate orally. She also had an episode of palpitations last night. Patient has a history of SVT but does not think she was in SVT. EKG this morning reveals sinus rhythm. No arrhythmogenic abnormality. Unclear what these palpitations were but I suspect they may have been PVCs or PACs. With her left arm pain, consider an atypical presentation of angina. She would be very low risk for classic acute coronary syndrome but consider possible S CAD. EKG nonischemic and troponin is negative. With symptoms ongoing since about 2:00 a.m., I think a single troponin drawn at 8:30 a.m. in the morning is sufficient to rule out ischemia. Consider possible PE. However she is not on a control pills. No no recent travel. No signs of DVT. She is low risk by PERC. Therefore would hold off on D-dimer or CT PA this point. She is not having any ripping or tearing chest pain, back pain, and has no signs of any limb ischemia or pulse deficit to raise concern for aortic dissection. Patient tolerating p.o. and feeling somewhat better after fluids and meds here in the ER. Still mild leg aches and arm ache. Plan of care will be discharged with careful monitoring at home. Precautions for return to the ER need for follow-up with any new or bulging symptoms. Is it possible that her body aches and leg aches are initial symptoms of a viral syndrome. No cough or fever at this point or other URI symptoms to raise specific concern for COVID or flu so would hold off on that test for now. No cough. Lungs are clear. No shortness of breath. No symptoms of pneumonia. Would hold off on chest x-ray. Lab Data Labs: Lab Results 05/27/24 05/27/24 Range/Units 08:40 09:09 WBC 6.19 (4.50-11.00) K/uL RBC 4.69 (4.00-5.20) m/uL Hgb 12.3 (12.0-16.0) gm/dL Hct 38.3 (33.0-51.0) % MCV 82 (80-100) fL MCH 26 (26-34) pg MCHC 32 (32-36) gm/dL RDW Coeff of Naina 12.6 (11.5-15.5) % Plt Count 227 (140-440) K/uL Neut % (Auto) 55.0 (42.0-72.0) % Lymph % (Auto) 30.4 (20-44) % [place] % (Auto) 8.6 (0.0-11.0) % Eos % (Auto) 5.5 (0.0-7.0) % Baso % (Auto) 0.3 (0.0-3.0) % Neut # (Auto) 3.41 (1.7-7.0) K/uL Lymph # (Auto) 1.88 (0.90-2.90) K/uL [place] # (Auto) 0.50 (0.00-0.90) K/UL Eos # (Auto) 0.34 (0.00-0.50) K/uL Baso # (Auto) 0.02 (0.00-0.30) K/uL Abs Immat Gran (auto) 0.01 (0.00-0.30) K/uL Imm/Tot Granulo (auto) 0.2 % Sodium 138 (135-149) mmol/L Potassium 4.0 (3.6-5.1) mmol/L Chloride 104 (96-114) mmol/L Carbon Dioxide 25 (20-32) mmol/L Anion Gap 9 (7-15) mEq/L BUN 13 (5-24) mg/dL Creatinine 0.6 (0.5-1.5) mg/dL Estimated Creat Clear 135.35 Estimated GFR 128 ml/min Glucose 94 (60-115) mg/dL Calcium 9.2 (8.4-10.6) mg/dL Total Creatine Kinase 114 (41-117) U/L Troponin I < 0.01 L (0.01-0.04) ng/mL Urine HCG, Qual Negative (Negative) ECG Data Attestation: I personally reviewed and interpreted this ECG as follows: Interpretation: Normal sinus rhythm Rate: 76 MI: 164 QRS axis: Normal ST segment/T wave: No ST segment elevation or depression QTc: 436 Discharge Plan Discharge Clinical Impression: Myalgia, Palpitation Patient Disposition: Home, Self-Care Condition: Stable Instructions: Heart Palpitations (DC), Musculoskeletal Pain (ED) Additional Instructions: As we discussed, the cause for your leg aches and are make are not clear at this time. He laboratory work looks reassuring. For now rest, stay hydrated, use Tylenol or ibuprofen if needed. Monitor symptoms over the next 07/03/2040 8 hours. If he develops new symptoms or worsening symptoms, please return to the ER or see her doctor right away to be rechecked. The workup for heart looks good. No signs of any unusual heartbeats or SVT at this time. No sign of heart attack. If you have more palpitations or more symptoms that might suggest SVT, come back to the ER right away. Prescriptions: No Action tretinoin [Retin-A] 0.05 % cream topical QPM ketoconazole 2 % shampoo topical lorazepam 0.5 mg tablet 0.5 mg PO DAILY PRN (Reason: anxiety) omeprazole 40 mg capsule,delayed release(DR/EC) 40 mg PO DAILY Patient Comments: TAKE ONE CAPSULE BY MOUTH EVERY DAY . metoprolol succinate 25 mg tablet extended release 24 hr 12.5 mg PO DAILY paroxetine HCl 40 mg tablet 40 mg PO QAM Follow Up/Referrals: Provider,Not a Local [Primary Care Provider] - Stand Alone Forms: [employer] Info Instructions
[2024-05-27] MEDS: IBUPROFEN 600 MG TABLET PO (08:40)
--- OUTSIDE RECORDS SUMMARY | 2024-05-27 08:43 | XMS_ITS | Clinical Summary ---
Author Organization 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
--- OUTSIDE RECORDS SUMMARY | 2024-05-27 08:43 | XMS_ITS | Clinical Summary ---
Author Organization [facility] Address [address] [place] [address] Care Team Providers Care Guide Domestic Tour Name Role Phone Diana Desir Stanislav [facility] Unavailable Rain Galaviz PA-C Unavailable Tavia Wyatt MD Unavailable Unavailable Erica Farrell CLOTHES WRINGER WARDROBE SUPERVISOR Unavailable Rich Barrett MD Unavailable Neil Kent MD Unavailable Thang Diana Stanislav [facility] Unavailable [phone] Livan Sharif MD Unavailable Catherine Cm MD Unavailable + Valery Veronica PA-C Unavailable Brea Quinn CLOTHES WRINGER WARDROBE SUPERVISOR Unavailable Alfonso Renteria MD Unavailable [phone] Esha Grimm PA-C Primary Care Provider Radha Lomeli APRN WARDROBE SUPERVISOR Unavailable Jelena David OD Unavailable Esha Grimm PA-C Unavailable [phone] Valery Veronica PA-C Unavailable Rey Tay MD Unavailable ZepedaRocky Unavailable Philip Dumont MD Unavailable Meredith Carrera PA-C Unavailable Neil Kent MD Unavailable Juan Pablo Emmanuel MD Unavailable Audrey Waite PA-C Unavailable Valery Veronica PA-C Unavailable Allergies Active Allergy Reactions Criticality Noted Date Comments Vancomycin 04/26/2022 Medications triamcinolone (KENALOG) 0.1 % external ointmentIndicat ions:Psoriasis Apply topically 2 times daily To psoriasis on body or arms/legs until healed then stop 80 g 2 10/02/19 23 Active tacrolimus (PROTOPIC) 0.1 % external ointmentIndicat ions:Psoriasis Apply thin layer to psoriasis on thinner skin of face/genitals up to twice daily as needed. 60 g 11 10/02/19 23 Active levonorgestrel (MIRENA) 52 MG (20 mcg/day) IUD by Intrauterine route once Active clindamycin (CLEOCIN T) 1 % external lotionIndicatio ns:Acne, unspecified acne type Apply topically 2 times daily 60 mL 1 09/01/19 24 Active tretinoin (RETIN-A) 0.05 % external creamIndication s:Acne, unspecified acne type Apply topically at bedtime 45 g 09/01/19 24 Active omeprazole (PRILOSEC) [address] capsuleIndicati ons:Epigastric pain TAKE 1 CAPSULE BY MOUTH DAILY. 90 capsule 3 09/16/19 24 Active Multiple Vitamin (MULTIVITAMIN ADULT PO) Active Digestive Enzymes (DIGESTIVE ENZYME PO) Active Probiotic Product (PROBIOTIC BLEND PO) Active LORazepam (ATIVAN) 0.5 MG tabletIndicatio ns:Anxiety Take 1 tablet (0.5 mg) by mouth daily as needed for anxiety 30 tablet 10/27/19 24 Active ketoconazole (NIZORAL) 2 % external shampooIndicati ons:Psoriasis Use every 1-2 days when flared. Leave in few minutes before rinsing. Use twice weekly to prevent flares. 120 mL 11 11/17/19 24 Active PARoxetine (PAXIL) 40 MG tabletIndicatio ns:Anxiety TAKE ONE TABLET BY MOUTH EVERY MORNING 90 tablet 1 03/19/20 24 Active metoprolol succinate ER (TOPROL XL) 25 MG 24 hr tabletIndicatio ns:Palpitations Take 0.5 tablets (12.5 mg) by mouth daily. 45 tablet 3 05/18/20 24 Active metoprolol succinate ER (TOPROL XL) 25 MG 24 hr tabletIndicatio ns:Palpitations Take 0.5 tablets (12.5 mg) by mouth daily 45 tablet 1 11/22/19 24 024 Discontinu ed(Reorder (No AVS)) benzonatate (TESSALON) 100 MG capsule Take 1 capsule (100 mg) by mouth 3 times daily as needed for cough. 20 capsule 04/09/20 24 024 Discontinu ed(Stopped by Patient (No AVS)) metroNIDAZOLE (FLAGYL) 500 MG tabletIndicatio ns:Vaginal discomfort Take 1 tablet (500 mg) by mouth 2 times daily for 7 days. 14 tablet 05/08/20 24 024 Hospital, Clinic, or Other Facility Administered Medication Ordered Dose Route Frequency Start Date End Date Status sodium chloride (PF) 0.9% PF flush 3 mLIndications:Chronic upper back pain,Atypical chest pain,Current every day vaping,Chest tightness 3 mL IV EVERY 1 MIN PRN 03/29/2024 Active Active Problems Patient Care Coordination No [...] available in ED consider consultation with ED Hospice Home Health Aide. Relevant Medical History (at time Care Plan initiated): Seizures (on 500mg Keppra daily), SVT (on 12.5mg metoprolol daily), Anxiety and Depression Past imaging: CT: 3 in the 12 months prior to initiation of care plan. MRI: 0 in the 12 months prior to initiation of care plan. ED Ultrasound: 8 in the 12 months prior to initiation of care plan. [facility] ED visits in 12 months prior to initiation of Care Plan: 11 [facility] Hospital Admissions in 12 months prior to initiation of Care Plan: 0 (she has technically had 2 admissions due to related issues with OBGYN) Expected home rescue plan: Metoprolol 12.5mg PRN PCP: Marija Edgar APRN CNP - Family Medicine - [facility] Specialists: Dr. Galo Burrell - Cardiology - [facility] Cesar Dotson - Neurology [facility] Epilepsy Care Care Coordination: Has worked with Community Health Worker in past - ARACELIS Parker, Clinical Care Coordination - [facility] ([place], [place] and [place]) - Follow up plan after an ED visit: Marija Edgar APRN CNP - Family Medicine - [facility] Initiated: 2020 Problem Noted Date Diagnosed Date Other ventricular tachycardia 05/08/2024 Neck pain 08/25/2022 Paroxysmal supraventricular tachycardia 08/28/19 SVT (supraventricular tachycardia) 08/28/2021 Encounter for pharmacogenetic testing 04/17/2021 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 (04/17/2021): 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 KALYN (generalized anxiety disorder) 09/29/2020 Right ureteral stone 05/27/2020 Overview (05/27/2020): Added automatically from request for surgery [id number] Left ureteral stone 05/27/2020 Overview (05/27/2020): Added automatically from request for surgery [id number] Head ache 02/18/2020 Seizure 05/02/2019 Depressed 05/02/2019 Anxiety 05/02/2019 Tobacco abuse counseling 05/02/2019 Psoriasis 05/02/2019 Resolved Problems Problem Noted Date Diagnosed Date Resolved Date Lower back pain 08/25/2022 08/17/2023 Term 01/13/2021 10/11/2022 Encounter for triage in patient 12/09/2020 04/18/2023 Asthma 06/04/2020 02/07/2024 Encounters Date Type Department Care Team Description 05/18/2024 Refill [facility] [address] [place] [phone] Radha Lomeli APRN WARDROBE SUPERVISOR Refill Request (metoprolol) 05/17/2024 9:30 AM CABLE WORKER HELPER Virtual Visit [address] [address] Diana Desir, [facility] Anxiety (Primary Dx); Moderate major depression (H); 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 with body mass index (BMI) of 31.0 to 31.9 in adult 05/14/2024 2:50 PM CABLE WORKER HELPER Therapy Visit [facility] [address] [place] [phone] Ingris Thompson PT Neck pain (Primary Dx) 05/14/2024 Travel 05/11/2024 MyC Medical Advice [address] [phone] Esah Grimm PA-C 05/08/2024 1:30 PM CDT Office Visit [address] [phone] Lauren Claudio PA-C Holm, Kayla M, PA-C Routine general medical examination at a health care facility (Primary Dx); Other ventricular tachycardia (H); CYP2C9 intermediate metabolizer (H); Moderate major depression (H); Shortness of breath; Psoriasis; Vaginal discomfort 05/08/2024 Telephone [facility] [address] [facility], [address] [place] [address] Alfonso Renteria MD Forms (DMV(LOC)) 05/08/2024 Travel 05/07/2024 Travel 04/24/[address] [phone] Natali Serrano RN 04/24/2024 MyC Medical Advice [address] [place] [phone] Radah Lomeli APRN WARDROBE SUPERVISOR 04/24/[address] [place] [phone] Rani Gross, RN Results 2024 10:00 AM CDT Lab [facility] [address] [place] [phone] Screen for STD (sexually transmitted disease) 2024 Travel 04/22/2024 8:50 AM CDT E-Visit [address] [place] [phone] Esha Grimm PA-C Screen for STD (sexually transmitted disease) (Primary Dx) 04/09/2024 5:50 PM CDT Office Visit [facility] [address] [place] [address] Matti David MD Upper respiratory tract infection, unspecified type (Primary Dx) 04/09/2024 Travel 04/07/2024 2:42 AM CDT - 04/07/2024 3:31 AM CDT Emergency [facility] Emergency Dept [address] [place] [address] Augustus Daugherty MD Palpitations; Hx of supraventricular tachycardia; Alcohol use Discharge Disposition: Home or Self Care 04/07/2024 Travel 03/30/2024 7:10 PM CDT Office Visit [facility] [address] [place] [address] Audrey Díaz PA-C Dysuria (Primary Dx); Vaginal discharge; Psoriasis; Chronic bilateral low back pain without sciatica 03/30/2024 Travel 03/29/2024 11:05 AM CDT - 03/29/2024 11:59 PM CDT Hospital Encounter [facility] Hospital Imaging [address] [place] [address] Fady Menon MD Chronic upper back pain; Atypical chest pain; Chest tightness Discharge Disposition: Home or Self Care 03/29/2024 9:30 AM CDT Office Visit [facility] [address] [facility] [address] [place] [address] Fady Menon MD Chest tightness (Primary Dx); Chronic upper back pain; Atypical chest pain; Current every day vaping 03/28/2024 Travel 03/19/2024 MyC Medical Advice [facility] [address] [phone] [facility] [place] 03/18/2024 Refill [facility] [address] [place] [address] Esha Grimm PA-C Medication Refill 03/15/2024 10:40 AM CDT Therapy Visit [facility] [place] [phone] [place] [address] [address] [place] [phone] Ingris Thompson, PT Neck pain (Primary Dx) 03/15/2024 Travel 03/13/2024 Travel 03/08/2024 11:00 AM CDT - 03/08/2024 11:59 PM CDT Hospital Encounter [facility] Specialty Care [address] [facility] [address] [place] [address] Radha Lomeli APRN CNP SVT (supraventricular tachycardia) (H) Discharge Disposition: Home or Self Care 03/08/2024 Travel 03/07/2024 Telephone [facility] [address] [facility] [address] [place] [address] Carley Myles RN 03/06/2024 3:00 PM CDT Office Visit [facility] [address] [place] [address] [address] [place] [phone] Radha Lomeli APRN CNP SVT (supraventricular tachycardia) (H) (Primary Dx); Palpitations 03/06/2024 Travel 03/06/2024 MyC Medical Advice [facility] [address] [facility] [address] [place] [address] Ebony Cid APRN CNP 03/05/2024 MyC Medical Advice [facility] [address] [phone] Rebecca Moctezuma 03/05/2024 Telephone [facility] [address] [phone] None Procedure (Cancel/Reschedule) 03/05/2024 Telephone [facility] [place] [address] [facility] [address] [place] [phone] Radha Lomeli, CLOTHES WRINGER WARDROBE SUPERVISOR Call Back (Heart monitor for 14 or 30 days ) 03/03/2024 Travel 03/01/2024 Telephone [facility] [address] [place] [phone] Esha Grimm PAUcheC Letter for School/Work 02/28/2024 MyC Medical Advice [facility] [place] [address] [facility] 4th [place] [phone] Rain Burnette RN 02/28/2024 Telephone [facility] [address] [place] [phone] Annabelle Wetzel, VJ Pt. Information/instructio n (EGD ) 02/27/2024 10:35 AM CDT Office Visit [facility] [place] [address] [place] [phone] Nicole Garcia PA-C Vagina, candidiasis (Primary Dx); Bacterial vaginosis; Nasal congestion 02/27/2024 MyC Medical Advice [facility] [address] [facility] [address] [place] [phone] Ebony Cid, CLOTHES WRINGER ROBERTA 02/27/2024 Travel from Last 3 Months Immunizations Name [...] 35 Months 4 Valent (PF) 04/24/2013 Influenza, Split Virus, Triv alent, Pf (Fluzone\Fluarix) 07/14/2012,05/25/2011,05/13/2010 Influenza, seasonal, injectable, PF 10/2012,05/25/2011,05/13/2010,05/26,07/22/2003 MMR 01/15/2021,11/23/2004,08/07/2001 Meningococcal ACWY (Menactra??) 08/10/2011 Meningococcal ACWY (Menveo??) 05/16/2017 Nasal Influenza Vaccine 2-49 (FluMist) 7 Pneumococcal (PCV 7) 2000,2000,06/23 Pneumococcal 23 valent 09/22/2021 Poliovirus, inactivated (IPV) 11/23/2004 ,03/28/2001,2000,06/23 TDAP Vaccine (Adacel) 11/11/2020,08/10/2011 TRIHIBIT (DTAP/HIB, <7y) 08/07/2001 Varicella 03/05/2013,10/17/2001 Family History Medical History Relation Comments Hypertension Father Cerebrovascular Disease Maternal Grandfather Coronary Artery Disease Maternal Grandfather Heart Disease Maternal Grandfather Osteoporosis Maternal Grandmother Asthma Mother Cold Indused Hyperlipidemia Mother Hypertension Mother Coronary Artery Disease Other 1 Cerebrovascular Disease Other 2 Coronary Artery Disease Other 2 Coronary Artery Disease Other 3 Breast Cancer Other 4 Coronary Artery Disease Other 4 Breast Cancer Paternal Grandmother Other Cancer Paternal Grandmother Bone Cancer Anxiety Disorder Sister 1 Brain Tumor Sister 1 Depression Sister 1 Anxiety Disorder Sister 2 Depression Sister 2 Hypertension Sister 2 Glaucoma No family hx of Macular Degeneration No family hx of Relation Status Comments Father Maternal Grandfather Alive Maternal Grandmother Mother Other 1 Other 2 Other 3 Other 4 Paternal Grandmother Sister 1 Alive Sister 2 Social History Tobacco Use Types Packs/Day Years Used Date Smoking Tobacco: Former Cigarettes 1 4 Q uit: 12/07/2019 Other Passive Smoke Exposure: Past Smokeless Tobacco: Never Tobacco Cessation:Counseling Given: Not Answered Comments:1 year 4 months tobacco free Alcohol Use Standard Drinks/Week Comments Not Currently 0 (1 standard drink = 0.6 oz pur e alcohol) social Social Connection and Isolation Panel [NHANES] A nswer Date Recorded In a typical week, how many times do you talk on the phone with family, friends, or neighbors? Three times a week 05/07/20 How often do you get togethe r with friends or relatives? Once a week 05/07/2024 How often do you attend chur or mandaeism services? 1 to 4 times per year 05/07/2024 Do you belong to any clubs o r organizations such as presybeterian groups, unions, fraternal or athletic groups, or school groups? No 05/07/2024 How often do you attend meet ings of the clubs or organizations you belong to? Never 05/07/2024 Are you , , di vorced, , never , or living with a partner? Never 05/07/2024 AUDIT-C Answer Date Recorded Q1: How often do you have a drink containing alc ohol? Monthly or less 03/28/2024 Q2: How many drinks containi ng alcohol do you have on a typical day when you are drinking? 3 or 4 03/28/2024 Q3: How often do you have si x or more drinks on one occasion? Never 03/28/2024 PHQ-2 Answer Date Recorded PHQ-2 Score 1 02/07/2024 [facility] - Occupational Stress Questionnaire Answer Date Recorded Do you feel stress - tense, restless, nervous, or anxious, or unable to sleep at night because your mind is troubled all the time - these days? To some extent 05/07/2024 Exercise Vital Sign Answer Date Recorde d On average, how many days pe r week do you engage in moderate to strenuous exercise (like a brisk walk)? 2 days 05/07/2024 On average, how many minutes do you engage in exercise at this level? 20 min 05/07/2024 [place] Depression Scale Answer Date Recorded [place] Depression Score 5 01/14/2021 Last EPDS Self Harm Result Not on file 01/14 Adolescent Education Answer Date Record ed Getting School Help Needed Not on file 04/04 Food Insecurity Answer Date Recorded Within the past 12 months, d id you worry that your food would run out before you got money to buy more? No 05/07/2024 Within the past 12 months, d id the food you bought just not last and you didn? t have money to get more? No 05/07/2024 Housing Stability Answer Date Recorded Do you have housing? (Catherine g is defined as stable permanent housing and does not include staying ouside in a car, in a tent, in an abandoned building, in an overnight senior living, or couch-surfing.) Yes 05/07/2024 Are you worried about losing your housing? No 05/07/2024 Financial Resource Strain Answer Date R ecorded Within the past 12 months, h ave you or your family members you live with been unable to get utilities (heat, electricity) when it was really needed? No 05/07/2024 Transportation Needs Answer Date Record ed Within the past 12 months, h as lack of transportation kept you from medical appointments, getting your medicines, non-medical meetings or appointments, work, or from getting things that you need? No 05/07/2024 Interpersonal Safety Answer Date Record ed Do you feel physically and e motionally safe where you currently live? Yes 05/08/2024 Within the past 12 months, h ave you been hit, slapped, kicked or otherwise physically hurt by someone? No 05/08/2024 Within the past 12 months, h ave you been humiliated or emotionally abused in other ways by your partner or ex-partner? No 05/08/2024 Education Answer Date Recorded What is the highest level of school you have completed or the highest degree you have received? 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 CABLE WORKER HELPER Gender Identity Female 03/02/2021 5:45 PM CDT Sexual Orientation Straight 02/28/2020 12 :51 AM CDT Last Filed Vital Signs Vital Sign Reading Time Taken Comments Blood Pressure 114/68 05/08/2024 1:10 PM CDT Pulse 69 05/08/2024 1:10 PM CDT Temperature 36.8 ??C (98.3 ??F) 05/08/2024 1:10 PM CD T Respiratory Rate 18 05/08/2024 1:10 PM CDT Oxygen Saturation 98% 05/08/2024 1:10 PM CDT Inhaled Oxygen Concentration - - Weight 89.2 kg (196 lb 10.4 oz) 05/08/2024 1:10 PM CDT Height 167.6 cm (5' 6) 05/08/2024 1:10 PM CDT Body Mass Index 31.74 05/08/2024 1:10 PM CDT Plan of Treatment Upcoming Encounters Date Type Department Care Team (Late st Contact Info) Description 05/31/2024 8:40 AM CABLE WORKER HELPER Therapy Visit [facility] [address] [place] [phone] Ingris Thompson, PT [facility] [address] [place] [phone] 05/31/2024 3:30 PM CABLE WORKER HELPER Office Visit [facility] Specialty [address] [phone] Audrey Díaz, Herminia Koo MD [address] [place] [address] 06/04/2024 3:30 PM CABLE WORKER HELPER [facility] [address] [place] [address] [address] [place] [phone] Jelena David, OD [address] [place] [address] ENMA KING [address] 06/11/2024 10:30 AM CABLE WORKER HELPER Appointment [facility] Respiratory Therapy [address] [place] [phone] Spec, Nurse Only Med 06/18/2024 2:50 PM CABLE WORKER HELPER Therapy Visit [facility] [place] [address] [facility] [address] [place] [phone] Ingris Thompson, PT [facility] [address] [facility] [address] [place], [place] [address] 06/21/2024 2:00 PM CABLE WORKER HELPER Office Visit [facility] - [place] [address] [facility], [address] [place] [phone] [place] [address] [place], [place] [phone] Johnny Penn MD [address] [place], [place] [address] 06/25/2024 8:30 AM CABLE WORKER HELPER Office Visit [address] [phone] Valery Veronica PA-C [address] [place] [phone] 11/28/2024 7:45 AM CDT Virtual Visit [facility] [address] 4th [place] [phone] Meredith Carrera PA-C [address] [place] [phone] Health Maintenance Due Date Last Done Comments Pneumococcal Vaccine: Pediatrics (0 to 5 Years) and At-Risk Patients (6 to 64 Years) (2 of 2 - PCV) 09/22/2022 09/22/2021, 2000, 2000, Additional history exists ANNUAL REVIEW OF HM ORDERS 03/10/202403/10, 09/22/2021, 06/24/2020 COVID-19 Vaccine ( season) 2024 INFLUENZA VACCINE (#1) 2024 , 03/27/2020, 05/02/2019, Additional history exists PHQ-9 08/09/2024 02/07/2024, 12/07/2022, 05/16/2023, Additional history exists CHLAMYDIA SCREENING 2025 2024, 02/07/2024, 12/21/2023, Additional history exists YEARLY PREVENTIVE VISIT 05/08/2025 05/08/20 24, 03/10/2023, 09/22/2021, Additional history exists PAP 04/10/2027 09/22/2021 ADVANCE CARE PLANNING 05/08/2029 05/08/2024 DTAP/TDAP/TD IMMUNIZATION (8 - Td or Tdap) 11/11/2030 11/11/2020, 08/10/2011, 11/23/2004, Additional history exists RSV VACCINE (1 - 1-dose 75+ series) 2075 HEPATITIS B IMMUNIZATION Completed 002, 08/07/2001, 03/28/2001, Additional history exists HPV IMMUNIZATION Completed 03/01/2012, , 08/10/2011 MENINGITIS IMMUNIZATION Completed 05/16/2017, 08/10 DEPRESSION ACTION PLAN Completed 04/17/2021, 2020 HEPATITIS C SCREENING Completed 12/21/2023 , 11/14/2023, 11/05/2019 HIV SCREENING Completed 2024, 01/10, 12/21/2023, Additional history exists RSV MONOCLONAL ANTIBODY Aged Out No l onger eligible based on patient's age to complete this topic Procedures Procedure Name Priority Date/Time Associated Diagnosis Comments LIPID REFLEX TO DIRECT LDL PANEL Routine 05/08/2024 2:49 PM CDT Routine general medical examination at a health care facility COMPREHENSIVE METABOLIC PANEL Routine 05/08/2024 2:49 PM CDT Routine general medical examination at a health care facility CBC WITH PLATELETS Routine 05/08/2024 2: 49 PM CDT Routine general medical examination at a health care facility FERRITIN Routine 05/08/2024 2:49 PM CDT Routine general medical examination at a health care facility IRON AND IRON BINDING CAPACITY Routine 05/08/2024 2:49 PM CDT Routine general medical examination at a health care facility WET PREPARATION Routine 05/08/2024 2:40 PM CDT Vaginal discomfort UA MACROSCOPIC WITH REFLEX TO MICRO AND CULTURE Routine 05/08/2024 2:40 PM CDT Vaginal discomfort ZIO PATCH 48 HOURS INTERPRETATION Routine 04/28/2024 1:43 PM CDT Palpitations CHLAMYDIA TRACHOMATIS/NEISSERIA GONORRHOEAE BY PCR Routine 2024 10:11 AM CDT Screen for STD (sexually transmitted disease) WET PREPARATION Routine 2024 10:11 AM CDT Screen for STD (sexually transmitted disease) HIV ANTIGEN ANTIBODY COMBO Routine 2024 10:11 AM CDT Screen for STD (sexually transmitted disease) TREPONEMA ABS W REFLEX TO RPR AND TITER Routine 2024 10:11 AM CDT Screen for STD (sexually transmitted disease) URINALYSIS MACROSCOPIC Routine 10:11 AM CDT Screen for STD (sexually transmitted disease) INFLUENZA A/B ANTIGEN Routine 04/09/2024 6:06 PM CDT COVID-19 VIRUS (CORONAVIRUS) BY PCR Routine 04/09/2024 6:06 PM CDT EKG 12-LEAD, TRACING ONLY STAT 04/07/2024 3:06 AM CDT WET PREPARATION Routine 03/30/2024 7:30 PM CDT Vaginal discharge UA MACROSCOPIC WITH REFLEX TO MICRO AND CULTURE Routine 03/30/2024 7:[address] CHEST W CONTRAST STAT 03/29/2024 1 2:19 PM CDT Chronic upper back pain Atypical chest pain Chest tightness CARDIAC EVENT MONITOR APPLICATION AND PROVIDER INTERPRETATION Routine 03/08/2024 11:18 AM CDT SVT (supraventricular tachycardia) (H) ZIO PATCH 8-14 DAYS APPLICATION Routine 03/08/2024 Palpitations WET PREPARATION Routine 02/27/2024 10:34 AM CDT Vagina, candidiasis UA MICROSCOPIC WITH REFLEX TO CULTURE Routine 02/27/2024 10:34 AM CDT Bacterial vaginosis UA MACROSCOPIC WITH REFLEX TO MICRO AND CULTURE Routine 02/27/2024 10:34 AM CDT Bacterial vaginosis HEPATITIS C ANTIBODY Routine 12/21/2023 1:39 PM CDT Vaginal odor GYNECOLOGIC CYTOLOGY Routine 09/22/2021 3:14 PM CDT Encounter for screening for cervical cancer from Last 3 Months or Most Recently Relevant to Health Maintenance Results * (ABNORMAL) Lipid panel reflex to direct LDL Non-fasting (05/08/2024 2:49 PM CDT) Cholesterol 189 <200 mg/dL 05/08/2024 10:16 PM CDT [facility] Triglycerides 155(H) <150 mg/dL 05/08/2024 10:16 PM CDT [facility] Direct Measure HDL 43(L) >=50 mg/dL 05/08/2024 10:16 PM CDT [facility] LDL Cholesterol Calculated 115(H) <100 mg/dL 05/08/2024 10:16 PM CDT [facility] Non HDL Cholesterol 146(H) <130 mg/dL 05/08/2024 10:16 PM CDT [facility] Patient Fasting > 8hrs? Unknown 05/08/2024 10:16 PM CDT [facility] Blood BLOOD SPECIMEN / Unknown Venipuncture / Unknown 05/08/2024 2:49 PM CDT 05/08/2024 2:49 PM CDT Narrative [facility] - 05/08/2024 10:16 PM CDT Cholesterol Desirable: < 200 mg/dL Borderline High: 200 - 239 mg/dL High: >= 240 mg/dL Triglycerides Normal: < 150 mg/dL Borderline High: 150 - 199 mg/dL High: 200-499 mg/dL Very High: >= 500 mg/dL Direct Measure HDL Female: >= 50 mg/dL Male: >= 40 mg/dL LDL Cholesterol Desirable: < 100 mg/dL Above Desirable: 100 - 129 mg/dL Borderline High: 130 - 159 mg/dL High: ??160 - 189 mg/dL Very High: >= 190 mg/dL Non HDL Cholesterol Desirable: < 130 mg/dL Above Desirable: 130 - 159 mg/dL Borderline High: 160 - 189 mg/dL High: 190 - 219 mg/dL Very High: >= 220 mg/dL us Esha Grimm PA-C LAB - BLOOD ORDERABLES Final R esult [facility] [address] [facility], [address] [phone] * Iron and iron binding capacity (05/08/2024 2:49 PM CDT) Iron 130 37 - 145 ug/dL 05/08/2024 10:16 PM CDT [facility] Iron Binding Capacity 373 240 - 430 ug/dL 05/08/2024 10:16 PM CDT [facility] Iron Sat Index 35 15 - 46 % 05/08/2024 10:16 PM CDT [facility] Blood BLOOD SPECIMEN / Unknown Venipuncture / Unknown 05/08/2024 2:49 PM CDT 05/08/2024 2:49 PM CDT us Esha Grimm PA-C LAB - BLOOD ORDERABLES Final R esult [facility] [address] [facility], [address] * Ferritin (05/08/2024 2:49 PM CDT) Ferritin 23 6 - 175 ng/mL 05/08/2024 10:44 PM CDT [facility] Blood BLOOD SPECIMEN / Unknown Venipuncture / Unknown 05/08/2024 2:49 PM CDT 05/08/2024 2:49 PM CDT Esha Grimm PA-C LAB - BLOOD ORDERABLES Final R esult Performing Organization Address [facility]/ZIP Co de Phone Number U [facility]AT[facility] Core Lab [address] [facility], [address] * Comprehensive metabolic panel (BMP + Alb, Alk Phos, ALT, AST, Total. Bili, TP) (05/08/2024 2:49 PM CDT) Sodium 137 135 - 145 mmol/L 05/08/2024 10:16 PM CDT [facility] Potassium 4.0 3.4 - 5.3 mmol/L 05/08/2024 10:16 PM CDT [facility] Carbon Dioxide (CO2) 25 22 - 29 mmol/L 05/08/2024 10:16 PM CDT [facility] Anion Gap 9 7 - 15 mmol/L 05/08/2024 10:16 PM CDT [facility] Urea Nitrogen 15.0 6.0 - 20.0 mg/dL 05/08/2024 10:16 PM CDT [facility] Creatinine 0.66 0.51 - 0.95 mg/dL 05/08/2024 10:16 PM CDT [facility] GFR Estimate >90 >60 mL/min/1.7 3m2 05/08/2024 10:16 PM CDT [facility] Comment:eGFR calculated us2020 CKD-EPI equation. Calcium 9.2 8.8 - 10.4 mg/dL 05/08/2024 10:16 PM CDT [facility] Comment:Reference intervals for this test were updated on 01/24/2024 to reflect our healthy population more accurately. There may be differences in the flagging of prior results with similar values performed with this method. Those prior results can be interpreted in the context of the updated reference intervals. Chloride 103 98 - 107 mmol/L 05/08/2024 10:16 PM CDT [facility] Glucose 84 70 - 99 mg/dL 05/08/2024 10:16 PM CDT [facility] Alkaline Phosphatase 60 40 - 150 U/L 05/08/2024 10:16 PM CDT [facility] AST 16 0 - 45 U/L 05/08/2024 10:16 PM CDT [facility] ALT 20 0 - 50 U/L 05/08/2024 10:16 PM CDT [facility] Protein Total 7.3 6.4 - 8.3 g/dL 05/08/2024 10:16 PM CDT [facility] Albumin 4.3 3.5 - 5.2 g/dL 05/08/2024 10:16 PM CDT [facility] Bilirubin Total 0.5 <=1.2 mg/dL 05/08/2024 10:16 PM CDT [facility] Patient Fasting > 8hrs? Unknown 05/08/2024 10:16 PM CDT [facility] Blood BLOOD SPECIMEN / Unknown Venipuncture / Unknown 05/08/2024 2:49 PM CDT 05/08/2024 2:49 PM CDT us Esha Grimm PA-C LAB - BLOOD ORDERABLES Final R esult [facility] [address] [facility], [address] [place] [address] * (ABNORMAL) CBC with platelets (05/08/2024 2:49 PM CDT) WBC Count 7.8 4.0 - 11.0 10e3/uL 05/08/2024 3:01 PM CDT [facility] RBC Count 4.69 3.80 - 5.20 10e6/uL 05/08/2024 3:01 PM CDT [facility] Hemoglobin 12.3 11.7 - 15.7 g/dL 05/08/2024 3:01 PM CDT [facility] Hematocrit 38.5 35.0 - 47.0 % 05/08/2024 3:01 PM CDT [facility] MCV 82 78 - 100 fL 05/08/2024 3:01 PM CDT [facility] MCH 26.2(L) 26.5 - 33.0 pg 05/08/2024 3:01 PM CDT [facility] MCHC 31.9 31.5 - 36.5 g/dL 05/08/2024 3:01 PM CDT [facility] RDW 12.6 10.0 - 15.0 % 05/08/2024 3:01 PM CDT [facility] Platelet Count 263 150 - 450 10e3/uL 05/08/2024 3:01 PM CDT [facility] Blood BLOOD SPECIMEN / Unknown Venipuncture / Unknown 05/08/2024 2:49 PM CDT 05/08/2024 2:49 PM CDT us Esha Grimm PA-C LAB - BLOOD ORDERABLES Final R esult CR LABORATORY [facility] [place] [facility] [id number] [place] [address] (no room number, 1st floor of clinic) [place] [address], [facility] * UA Macroscopic with reflex to Microscopic and Culture - Lab Collect (05/08/2024 2:40 PM CDT) Only the most recent of3 resultswithin the time period is included. Color Urine Yellow Colorless, Straw, Light Yellow, Yellow 05/08/2024 2:51 PM CDT [facility] Appearance Urine Clear Clear 05/08/20 2:51 PM CDT [facility] Glucose Urine Negative Negative mg/dL 05/08/2024 2:51 PM CDT [facility] Bilirubin Urine Negative Negative 4 2:51 PM CDT [facility] Ketones Urine Negative Negative mg/dL 05/08/2024 2:51 PM CDT [facility] Specific [place] Urine 1.010 1.003 - 1.035 05/08/2024 2:51 PM CDT [facility] Blood Urine Negative Negative 05/08/2024 2:51 PM CDT [facility] pH Urine 7.0 5.0 - 7.0 05/08/2024 2:51 PM CDT [facility] Protein Albumin Urine Negative Negative mg/dL 05/08/2024 2:51 PM CDT [facility] Urobilinogen Urine 0.2 0.2, 1.0 E.U./dL 05/08/2024 2:51 PM CDT [facility] Nitrite Urine Negative Negative 05/08/2024 2:51 PM CDT [facility] Leukocyte Esterase Urine Negative Negative 05/08/2024 2:51 PM CDT [facility] Urine URINE SPECIMEN OBTAINED BY CLEAN CATCH PROCEDURE / Unknown Non-blood Collection / Unknown 05/08/2024 2:40 PM CDT 05/08/2024 2:41 PM CDT Narrative [facility] - 05/08/2024 2:51 PM CDT Microscopic not indicated Esha Grimm PA-C LAB - URINE ORDERABLES Final R esult CR LABORATORY [facility] [place] [facility] [address] [facility] (no room number, 1st floor of clinic) [place] [address], [facility] * (ABNORMAL) Wet prep - Clinic Collect (05/08/2024 2:40 PM CDT) Only the most recent of4 resultswithin the time period is included. Trichomonas Absent Absent REINA 05/08/2024 3:01 PM CDT [facility] Yeast Absent Absent REINA 05/08/2024 3:01 PM CDT [facility] Clue Cells Present(A) Absent REINA 05/08/2024 3:01 PM CDT [facility] WBCs/high power field 1+(A) None REINA 05/08/2024 3:01 PM CDT [facility] Swab VAGINAL STRUCTURE / Unknown Non-blood Collection / Unknown 05/08/2024 2:40 PM CDT 05/08/2024 3:00 PM CDT us Esha Grimm PA-C LAB - MICRO GENERAL ORDERABLES Final Result CR LABORATORY [facility] [place] [facility] [address] [facility] (no room number, 1st floor of clinic) [place] [address], [facility] * ZIO PATCH 48 HOURS INTERPRETATION (04/28/2024 1:43 PM CDT) Anatomical Region Laterality Modality Other Narrative 04/28/2024 1:45 PM CDT Agree with findings Symptoms reported (9 episodes) were mostly related to sinus rhythm One episode of AV Wenkebach at 6:17 AM - commonly noted in young patients in early AM. us Radha Lomeli APRN WARDROBE SUPERVISOR CV CARDIAC SERVICES ORDERA BLES Final Result * HIV Antigen Antibody Combo (2024 10:11 AM CDT) HIV Antigen Antibody Combo Nonreactive Nonreactive 2024 9:57 PM CDT LABORATORY Comment:Negative HIV-1 p24 a ntigen and HIV-1/2 antibody screening test results usually indicate the absence of HIV-1 and HIV-2 infection. However, such negative results do not rule-out acute HIV infection. If acute HIV-1 or HIV-2 infection is suspected, detection of HIV-1 or HIV-2 RNA is recommended. This result is obtained using the Omar [employer] HIV Duo method on the candy e801 immunoassay analyzer. Blood BLOOD SPECIMEN / Unknown Venipuncture / Unknown 2024 10:11 AM CDT 2024 10:11 AM CDT us Esha Grimm PA-C LAB - BLOOD ORDERABLES Final R esult LABORATORY [facility] [address] [facility], [address] [place] [address], [facility] * Treponema Abs w Reflex to RPR and Titer (2024 10:11 AM CDT) Treponema Antibody Total Nonreactive Nonreactive 2024 8:35 PM CDT [facility] SPECIAL[facility] CORE/PROT/EN DO Blood BLOOD SPECIMEN / Unknown Venipuncture / Unknown 2024 10:11 AM CDT 2024 10:11 AM CDT Esha Grimm PA-C LAB - BLOOD ORDERABLES Final R esult SPECIALTY CORE/PROT/ENDO Specialty Core/Prot/Endo [address] [facility], Room [address] * Chlamydia & Gonorrhea by PCR, GICH/Range - Clinic Collect (2024 10:11 AM CDT) Chlamydia Trachomatis Negative Negative 04/24/2024 11:19 AM CDT [facility] Comment: Negative for C. trachomatis rRNA by brake repair supervisor mediated amplification. A negative result by brake repair supervisor mediated amplification does not preclude the presence of infection because results are dependent on proper and adequate collection, absence of inhibitors and sufficient rRNA to be detected. Neisseria gonorrhoeae Negative Negative 04/24/2024 11:19 AM CDT [facility] Comment:Negative for N. gono rrhoeae rRNA by brake repair supervisor mediated amplification. A negative result by brake repair supervisor mediated amplification does not preclude the presence of C. trachomatis infection because results are dependent on proper and adequate collection, absence of inhibitors and sufficient rRNA to be detected. Swab VAGINAL STRUCTURE / Unknown Non-blood Collection / Unknown 2024 10:11 AM CDT 2024 10:34 AM CDT Esha Grimm PA-C LAB - MICRO GENERAL ORDERABLES Final Result [facility] Inf. Diseases Diag. Lab [address] [facility], [address] [place] [id number] * Urinalysis Macroscopic (2024 10:11 AM CDT) Color Urine Yellow Colorless, Straw, Light Yellow, Yellow 2024 10:36 AM CDT [facility] Appearance Urine Clear Clear 04/23/20 10:36 AM CDT [facility] Glucose Urine Negative Negative mg/dL 2024 10:36 AM CDT [facility] Bilirubin Urine Negative Negative 10:36 AM CDT [facility] Ketones Urine Negative Negative mg/dL 2024 10:36 AM CDT [facility] Specific [place] Urine >=1.030 1.003 - 1.035 2024 10:36 AM CDT [facility] Blood Urine Negative Negative 2024 10:36 AM CDT [facility] pH Urine 5.5 5.0 - 7.0 2024 10:36 AM CDT [facility] Protein Albumin Urine Negative Negative mg/dL 2024 10:36 AM CDT [facility] Urobilinogen Urine 0.2 0.2, 1.0 E.U./dL 2024 10:36 AM CDT [facility] Nitrite Urine Negative Negative 2024 10:36 AM CDT [facility] Leukocyte Esterase Urine Negative Negative 2024 10:36 AM CDT [facility] Urine MID-STREAM URINE SPECIMEN / Unknown Non-blood Collection / Unknown 2024 10:11 AM CDT 2024 10:34 AM CDT us Esha Grimm PA-C LAB - URINE ORDERABLES Final R esult LABORATORY [facility] [place] [facility] [address] [facility] (no room number, 1st floor of clinic) [place] [address] * Symptomatic COVID-19 Virus (Coronavirus) by PCR Nose (04/09/2024 6:06 PM CDT) SARS CoV2 PCR Negative Negative 04/10/2024 6:48 PM CDT [facility] Comment:NEGATIVE: SARS-CoV-2 (COVID-19) RNA not detected, presumed negative. Swab NASAL STRUCTURE / Unknown Non-blood Collection / Unknown 04/09/2024 6:06 PM CDT 04/09/2024 6:12 PM CDT Narrative [facility] - 04/10/2024 6:48 PM CDT Testing was performed using the Aptima SARS-CoV-2 Assay on the Wevod Instrument System. Additional information about this Emergency Use Authorization (EUA) assay can be found via the Lab Guide. This test should be ordered for the detection of SARS-CoV-2 in individuals who meet SARS-CoV-2 clinical and/or epidemiological criteria. Test performance is unknown in asymptomatic patients. This test is for in vitro diagnostic use under the FDA EUA for laboratories certified under CLIA to perform high complexity testing. This test has not been FDA cleared or approved. A negative result does not rule out the presence of PCR inhibitors in the specimen or target RNA in concentration below the limit of detection for the assay. The possibility of a false negative should be considered if the patient's recent exposure or clinical presentation suggests COVID-19. This test was validated by the [facility]. This laboratory is certified under the Clinical Laboratory Improvement Amendments of 1988 (CLIA-88) as qualified to perform high complexity laboratory testing. us Matti David MD LAB - MICRO G ENERAL ORDERABLES Final Result [facility]ORATORY [facility] Inf. Diseases Diag. Lab [address] [facility], [address] [place] [address] * Influenza A/B antigen (04/09/2024 6:06 PM CDT) [facility] Signature Influenza A antigen Negative Negative 04/09/2024 6:31 PM CDT [facility] Influenza B antigen Negative Negative 04/09/2024 6:31 PM CDT [facility] Swab NASAL STRUCTURE / Unknown Non-blood Collection / Unknown 04/09/2024 6:06 PM CDT 04/09/2024 6:11 PM CDT Narrative [facility] - 04/09/2024 6:31 PM CDT Test results must be correlated with clinical data. If necessary, results should be confirmed by a molecular assay or viral culture. us Matti David MD LAB - MICRO G ENERAL ORDERABLES Final Result LV LAB[facility]ATORY [facility] [place] [facility] [address] [facility] (no room number, 1st floor of clinic) [place] [address], [facility] * EKG 12 lead (04/07/2024 3:06 AM CDT) Systolic Blood Pressure mmHg RADIOLOGY RESULTS Diastolic Blood Pressure mmHg RADIOLOGY RESULTS Ventricular Rate 70 BPM RAD IOLOGY RESULTS Atrial Rate 70 BPM RADIOLOG Y RESULTS TX Interval 164 ms RADIOLOG Y RESULTS QRS Duration 96 ms RADIOLO GY RESULTS QT 398 ms RADIOLOGY RESULTS QTc 429 ms RADIOLOGY RESULTS P [place] 46 degrees RADIOLOGY RESULTS R AXIS 67 degrees RADIOLOGY RESULTS T [place] 48 degrees RADIOLOGY RESULTS Interpretation ECG Sinus rhythm Normal ECG When compared with ECG of 11-Jan-2024 09:55, No significant change was found Confirmed by - EMERGENCY ROOM, PHYSICIAN ([id number]), editor school photograph KEYLA MERIDA (1963) on 04/09/2024 7:15:00 AM RADIOLOGY RESULTS 04/07/2024 3:06 AM CDT 04/09/2024 7:15 AM CDT us Augustus Daugherty MD ECG ORDERABLES Edited Re sult - Final Performing Organization Address [facility] Co de Phone Number RADIOLOGY RESULTS * CT Chest w Contrast (03/29/2024 12:19 PM CDT) Anatomical Region Laterality Modality Chest, SUBRAD CT BODY, UMP CT CHEST, RAD CT Computed Tomography Impressions 03/29/2024 1:26 PM CDT IMPRESSION: 1. ??No acute abnormality. 2. ??Stable small hiatal hernia. HILL LAO MD Narrative 03/29/2024 1:[address] CHEST WITH CONTRAST ??03/29/2024 12:19 PM CLINICAL HISTORY: Chronic upper back pain. Chest tightness. Shortness of breath. TECHNIQUE: CT chest with IV contrast. Multiplanar reformats were obtained. Dose reduction techniques were used. CONTRAST: 99 mL Isovue-370 COMPARISON: CT 01/18/2021. FINDINGS: LUNGS AND PLEURA: No effusions. No acute airspace consolidation. No pneumothorax. No new worrisome airspace disease. Stable left fissural nodule versus lymph node consistent with a nonaggressive etiology on series 4 image 84. MEDIASTINUM/AXILLAE: No adenopathy or acute mediastinal abnormality. No mediastinal fluid. Small hiatal hernia. CORONARY ARTERY CALCIFICATION: None. UPPER ABDOMEN: No acute upper abdominal abnormality. MUSCULOSKELETAL: No acute fracture identified. No focal suspicious bone lesion. Procedure Note Hill Lao MD - 03/29/2024 CT CHEST WITH CONTRAST 03/29/2024 12:19 PM CLINICAL HISTORY: Chronic upper back pain. Chest tightness. Shortness of breath. TECHNIQUE: CT chest with IV contrast. Multiplanar reformats were obtained. Dose reduction techniques were used. CONTRAST: 99 mL Isovue-370 COMPARISON: CT 01/18/2021. FINDINGS: LUNGS AND PLEURA: No effusions. No acute airspace consolidation. No pneumothorax. No new worrisome airspace disease. Stable left fissural nodule versus lymph node consistent with a nonaggressive etiology on series 4 image 84. MEDIASTINUM/AXILLAE: No adenopathy or acute mediastinal abnormality. No mediastinal fluid. Small hiatal hernia. CORONARY ARTERY CALCIFICATION: None. UPPER ABDOMEN: No acute upper abdominal abnormality. MUSCULOSKELETAL: No acute fracture identified. No focal suspicious bone lesion. IMPRESSION: 1. No acute abnormality. 2. Stable small hiatal hernia. HILL LAO MD Fady Menon MD IMG CT ORDERABLES Final Resu lt * CARDIAC EVENT MONITOR APPLICATION AND PROVIDER INTERPRETATION (03/08/2024 11:18 AM CDT) Anatomical Region Laterality Modality Other Radha Lomeli APRN WARDROBE SUPERVISOR CV CARDIAC SERVICES ORDERA BLES Final Result * (ABNORMAL) UA Microscopic with Reflex to Culture (02/27/2024 10:34 AM CDT) Bacteria Urine Few(A) None Seen /HPF REINA 02/27/2024 10:54 AM CDT [facility] RBC Urine 0-2 0-2 /HPF /HPF REINA 02/27/2024 10:54 AM CDT LABORATORY WBC Urine 0-5 0-5 /HPF /HPF REINA 02/27/2024 10:54 AM CDT [facility] Squamous Epithelials Urine Few(A) None Seen /LPF REINA 02/27/2024 10:54 AM CDT [facility] Urine MID-STREAM URINE SPECIMEN / Unknown Non-blood Collection / Unknown 02/27/2024 10:34 AM CDT 02/27/2024 10:41 AM CDT Narrative [facility] - 02/27/2024 10:54 AM CDT Urine Culture not indicated us Nicole Garnerro PA-C LAB - URINE ORDERABLES Final R esult LABORATORY [facility] [address] [facility] (no room number, 1st floor of clinic) [place] [address] * Hepatitis C antibody (12/21/2023 1:39 PM CDT) Pathologist [facility] Hepatitis C Antibody Nonreactive Nonreactive 12/22/2023 [...] 1:39 PM CDT 12/21/2023 1:39 PM CDT us Helen Cortez APRN WARDROBE SUPERVISOR LAB - BLOOD ORDERABLES Final Result LABORATORY [facility] [address] [facility], Room [address] [place] [address], [facility] * Pap screen reflex to [...] component of this testing was completed at [facility] 09/25/2021 10:27 AM CDT SPECIALTY LABS Brushing CERVIX UTERI STRUCTURE / Unknown 09/22/2021 3:14 PM CDT 09/22/2021 3:48 PM CDT Marija Edgar APRN WARDROBE SUPERVISOR LAB - [place] AP Final Re sult SPECIALTY LABS Specialty Lab [address] [facility], [address] [place] [address], [facility] [phone] from Last 3 Months or Most Recently Relevant to Health Maintenance Insurance [address] [address] [facility] [address] [address] [facility] [address] [address] [facility] * Guarantor: Kim Johnson Account Type Relation to Patient Date of Phone Billing Address Medication Therapy Self [address] [place] [phone] [facility] * Guarantor: Kim Johnson Account Type Relation to Patient Date of Phone Billing Address Medication Therapy Self [address] [place] [phone] [facility] Advance Directives For more information, please contact: [phone] * Full Code (Latest Code Status on File) Date Activated Date Inactivated Comments 01/14/2021 7:36 AM 01/15/2021 6:05 PM All basic and advanced life-sustaining interventions are performed as appropriate Question Answer Comments Code status determined by: Discussion with patie nt/ legal decision maker Care Teams Guide Domestic Tour Relationship Specialty Start Date End Date Esha Grimm PA-C [address] [place] [address] PCP - General Family Medicine 05/04/23 Diana Desir, [facility] [address] [place] [address] Pharmacist Pharmacist 04/17/21 Rain Galaviz PA-C [address] [place] [address] [address] [place] [address] Physician Boring Machine Operator Dermatology 04/28/21 Tavia Wyatt MD [address] [place] [address] [address] [facility] [address] Dermatology 07/14/21 Erica Farrell APRN WARDROBE SUPERVISOR [address] [facility] [address] [place] [address] Nurse Practitioner Cardiovascular Disease 09/09/21 Rich Barrett MD [address] 878955 Physician Ophthalmology 01/21/22 Neil Kent MD [address] [place], [place] [address] Dermatology 02/24/22 Diana Desir, [facility] [address] [place], [place] [address] Assigned MTM Pharmacist 04/07/22 Livan Sharif MD [address] [facility] [address] [place] [id number] Cardiovascular Disease 05/14/22 Catherine Cm MD [address] [facility] [address] [place] [address] Cardiovascular Disease 07/21/22 Valery Veronica, PA-C [address] [place], [place] 96[address] Physician Boring Machine Operator Dermatology 07/21/22 Brea Quinn APRN WARDROBE SUPERVISOR [address] [place], [place] [address] Nurse Practitioner Dermatology 09/21/22 Alfonso Renteria MD [address] [facility] [address] [place], [place] [id number] Assigned Neuroscience Provider 04/02/23 Radha Lomeli APRN WARDROBE SUPERVISOR [address] [place] [address] Assigned Heart and Vascular Provider 05/28/23 Jelena David OD [address] [facility] [place] [address] MD Ophthalmology 06/15/23 Esha Grimm PA-C [address] [place] [address] Assigned PCP 07/16/23 Valery Veronica PA-C [address] [place] [address] [id number] Physician Boring Machine Operator Dermatology 09/19/23 Rey Tay MD [address] [place] [address] [id number] MD Gastroenterology 09/20/23 Rocky Zepeda DO [address] [place] [address] [phone] Physician Gastroenterology 09/20/23 Philip Dumont MD [address] [place] [address] [phone] Physician Ophthalmology 09/22/23 Meredith Carrera PA-C [address] [place] [address] [id number] Assigned Gastroenterology Provider 11/01/23 Neil Kent MD [address] [address] Dermatology 11/02/23 [place] [address] [place] [address] Neurological Surgery 12/26/23 Audrey Waite PA-C [address] [place] [address] Physician Boring Machine Operator Dermatology 02/28/24 Valery Veronica, [place] [address] [place] [address] Physician Boring Machine Operator Dermatology 04/10/24
--- OUTSIDE RECORDS SUMMARY | 2024-05-27 08:43 | XMS_ITS | Referral Summary ---
Author Organization [place] Address [address] [place] [address] Care Team Providers Care Mill Helper Name Role Phone Diana Desir Stanislav [facility] Unavailable Rain Galaviz PA-C Unavailable [phone] Tavia Wyatt MD Unavailable Unavailable Erica Farrell PROMOTIONS PRODUCER [employer] PASTER Unavailable Rich Barrett MD Unavailable Neil Kent MD Unavailable Thang Diana Stanislav [facility] Unavailable [phone] Livan Sharif MD Unavailable Catherine Cm MD Unavailable + Valery Veronica-C Unavailable Brea Quinn PROMOTIONS PRODUCER [employer] BUTTON PASTER Unavailable Alfonso Renteria MD Unavailable [phone] Esha Grimm PA-C Primary Care Provider Radha Lomeli APRN [employer] PASTER Unavailable Jelena David OD Unavailable Esha Grimm PA-C Unavailable [phone] Valery Veronica PA-C Unavailable Rey Tay MD Unavailable Duane Rockyanne STEVENS Unavailable Philip Dumont MD Unavailable Meredith Carrera PA-C Unavailable [phone] Neil Kent MD Unavailable Juan Pablo Emmanuel MD Unavailable Audrey Waite PA-C Unavailable Valery Veronica PA-C Unavailable Encounters Date Type Department Care Team Description 05/18/2024 Refill [facility] Heart [address] [place] [address] Radha Lomeli APRN [employer]TON PASTER Refill Request (metoprolol) 05/17/2024 9:30 AM MACHINE SETTER AND REPAIRER Virtual Visit [address] [address] Diana Desir, [facility] Anxiety (Primary Dx); Moderate major depression (H); 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 with body mass index (BMI) of 31.0 to 31.9 in adult 05/14/2024 Travel 05/14/2024 2:50 PM MACHINE SETTER AND REPAIRER Therapy Visit [facility] Rehabilitation Services [address] [place] [address] Ingris Thompson, PT Neck pain (Primary Dx) 05/11/2024 MyC Medical Advice [address] [address] Esha Grimm PA-C 05/08/2024 Telephone Physicians [facility] Epilepsy [facility] [address] [facility], [address] [place] [address] Alfonso Renteria MD Forms (DMV(LOC)) 05/08/2024 Travel 05/08/2024 1:30 PM CDT Office Visit [address] [phone] Lauren Claudio PA-C Holm, Kayla M, PA-C Routine general medical examination at a health care facility (Primary Dx); Other ventricular tachycardia (H); CYP2C9 intermediate metabolizer (H); Moderate major depression (H); Shortness of breath; Psoriasis; Vaginal discomfort 05/07/2024 Travel 04/24/[address] [place] [phone] Natali Serrano RN 04/24/2024 MyC Medical Advice [facility] [address] [facility] [address] [place] [phone] Radha Lomeli APRN [employer]TON PASTER 04/24/[address] [phone] Rani Gross RN Results 2024 Travel 2024 10:00 AM CDT Lab [facility] [address] [place] [phone] Screen for STD (sexually transmitted disease) 04/22/2024 8:50 AM CDT E-Visit [address] [phone] Esha Grimm PA-C Screen for STD (sexually transmitted disease) (Primary Dx) 04/09/2024 Travel 04/09/2024 5:50 PM CDT Office Visit [address] [address] Matti David MD Upper respiratory tract infection, unspecified type (Primary Dx) 04/07/2024 Travel 04/07/2024 2:42 AM CDT - 04/07/2024 3:31 AM CDT Emergency [facility] Emergency Dept [address] [place] [address] Augustus Daugherty MD Palpitations; Hx of supraventricular tachycardia; Alcohol use Discharge Disposition: Home or Self Care 03/30/2024 Travel 03/30/2024 7:10 PM CDT Office Visit [facility] [place] [address] [place] [address] Audrey Díaz PA-C Dysuria (Primary Dx); Vaginal discharge; Psoriasis; Chronic bilateral low back pain without sciatica 03/29/2024 11:05 AM CDT - 03/29/2024 11:59 PM CDT Hospital Encounter [facility] Hospital Imaging [address] [place] [address] Fady Menon MD Chronic upper back pain; Atypical chest pain; Chest tightness Discharge Disposition: Home or Self Care 03/29/2024 9:30 AM CDT Office Visit [facility] [address] [facility] [address] [place] [address] Fady Menon MD Chest tightness (Primary Dx); Chronic upper back pain; Atypical chest pain; Current every day vaping 03/28/2024 Travel 03/19/2024 MyC Medical Advice [facility] Gastroenterology Clinic [address] 4th [place] [address] [facility] 03/18/[address] [address] Ehsa Grimm PA-C Medication Refill 03/15/2024 Travel 03/15/2024 10:40 AM CDT Therapy Visit [facility] Rehabilitation Services [address] [place] [phone] Ingris Thompson PT Neck pain (Primary Dx) 03/13/2024 Travel 03/08/2024 Travel 03/08/2024 11:00 AM CDT - 03/08/2024 11:59 PM CDT Hospital Encounter [facility] Specialty Care [address] [facility] [address] [place] [phone] Radha Lomeli APRN CNP SVT (supraventricular tachycardia) (H) Discharge Disposition: Home or Self Care 03/07/2024 Telephone [facility] [address] [facility] [address] [place] [phone] Carley Myles RN 03/06/2024 Travel 03/06/2024 MyC Medical Advice [facility] Spine and Neurosurgery [address] [facility] [address] [place] [phone] Ebony Cid APRN CNP 03/06/2024 3:00 PM CDT Office Visit [facility] [address] [facility] [address] [place] [phone] Radha Lomeli APRN CNP SVT (supraventricular tachycardia) (H) (Primary Dx); Palpitations 03/05/2024 MyC Medical Advice [facility] Gastroenterology [address] [phone] Rebecca Moctezuma 03/05/2024 Telephone [facility] Gastroenterology [address] [phone] None Procedure (Cancel/Reschedule) 03/05/2024 Telephone [facility] Heart [facility] [address] [facility] [address] [place] [phone] Radha Lomeli APRN CNP Call Back (Heart monitor for 14 or 30 days ) 03/03/2024 Travel 03/01/[address] [phone] Esha Grimm PA-C Letter for School/Work 02/28/2024 MyC Medical Advice [facility] Gastroenterology Clinic [address] [phone] Rain Burnette RN 02/28/2024 Telephone [facility] Endoscopy [address] [place] [address] Annabelle Wetzel, RN Pt. Information/instructio n (EGD ) 02/27/2024 MyC Medical Advice [facility] Spine and Neurosurgery [address] [facility] [address] [place] [address] Ebony Cid APRN CNP 02/27/2024 Travel 02/27/2024 10:35 AM CDT Office Visit [facility] [place] [address] [place] [address] Nicole Garcia PA-C Vagina, candidiasis (Primary Dx); Bacterial vaginosis; Nasal congestion from Last 3 Months Allergies Active Allergy [...] available in ED consider consultation with ED Community Development Planner. Relevant Medical History (at time Care Plan initiated): Seizures (on 500mg Keppra daily), SVT (on 12.5mg metoprolol daily), Anxiety and Depression Past imaging: CT: 3 in the 12 months prior to initiation of care plan. MRI: 0 in the 12 months prior to initiation of care plan. ED Ultrasound: 8 in the 12 months prior to initiation of care plan. Total [facility] ED visits in 12 months prior to initiation of Care Plan: 11 Total [facility] Hospital Admissions in 12 months prior to initiation of Care Plan: 0 (she has technically had 2 admissions due to related issues with OBGYN) Expected home rescue plan: Metoprolol 12.5mg PRN PCP: Marija Edgar APRN CNP - Family Medicine - [facility] Specialists: Dr. Galo Burrell - Cardiology - [facility] Heart Clinic Cesar Dotson - Neurology - [facility] Epilepsy Care Care Coordination: Has worked with Community Health Worker in past - ARACELIS Parker, Clinical Care Coordination - [facility] ([place], [place]) - Follow up plan after an ED visit: Marija Edgar APRN [facility] - [facility] Initiated: 2020 Problem Noted Date Diagnosed [...] (05/27/2020): Added automatically from request for surgery [id number] Left ureteral stone 05/27/2020 Overview (05/27/2020): Added automatically from request for surgery [id number] Head ache 02/18/2020 Seizure 05/02/2019 Depressed 05/02/2019 [...] friends, or neighbors? Three times a week 10/28/20 24 How often do you get togethe r with friends or relatives? Once a week 05/07/2024 How often do you attend chur or congregation services? 1 to 4 times [...] Answer Date Recorded PHQ-2 Score 1 02/07/2024 [facility] - Occupational Stress Questionnaire Answer Date [...] exercise at this level? 20 min 05/07/2024 [place] Depression Scale Answer Date Recorded [place] Depression Score 5 01/14/2021 Last EPDS Self [...] in an overnight residential, or couch-surfing.) Yes 05/07/2024 Are you worried [...] PM CDT Legal Sex Female 4:13 AM MACHINE SETTER AND REPAIRER Gender Identity Female 03/02/2021 5:45 PM CDT [...] st Contact Info) Description 05/31/2024 8:40 AM MACHINE SETTER AND REPAIRER Therapy Visit [address] [place] [address] Ingris Thompson, PT [facility] [address] [place] [address] 05/31/2024 3:30 PM MACHINE SETTER AND REPAIRER Office Visit [facility] Specialty Clinic [address] [phone] Audrey Díaz, Herminia Koo MD [address] [place] [address] 06/04/2024 3:30 PM MACHINE SETTER AND REPAIRER [facility] [address] [place] [address] [address] [place] [phone] Jelena David, [address] [place] [address] 06/11/2024 10:30 AM MACHINE SETTER AND REPAIRER Appointment [facility] Respiratory Therapy [address] [place] [phone] Spec, Nurse Only Med 06/18/2024 2:50 PM MACHINE SETTER AND REPAIRER Therapy Visit [address] [place] [phone] Ingris Thompson, PT [address] [address] 06/21/2024 2:00 PM MACHINE SETTER AND REPAIRER Office Visit [facility] Neurology Clinics [address], [address] [place] [phone] [place] [address] [place], [place] [address] Johnny Penn MD [address] [place] [address] 06/25/2024 8:30 AM MACHINE SETTER AND REPAIRER Office Visit [address] [phone] Valery Veronica, PABaldo [address] [place] [address] 11/28/2024 7:45 AM CDT Virtual Visit [facility] Gastroenterology Clinic [address] [phone] Meredith Carrera PA-C [address] [place] [address] [phone] Procedures Procedure Name Priority Date/Time Associated Diagnosis Comments LIPID REFLEX TO DIRECT LDL PANEL Routine 05/08/2024 2:49 PM CDT Routine general medical examination at a [facility] care facility COMPREHENSIVE METABOLIC PANEL Routine 05/08/2024 2:49 PM CDT Routine general medical examination at a [facility] care facility CBC WITH PLATELETS Routine 05/08/2024 2: 49 PM CDT Routine general medical examination at a [facility] care facility FERRITIN Routine 05/08/2024 2:49 PM CDT Routine general medical examination at a [facility] care facility IRON AND IRON BINDING CAPACITY [...] 219 mg/dL Very High: >= 220 mg/dL Esha Grimm PA-C LAB - BLOOD ORDERABLES Final R esult Performing Organization Address City/[facility]/ZIP Co de Phone Number U LABORATORY [facility] [place] Core Lab [address] [facility], [address] [phone] * Iron and iron binding capacity (05/08/2024 [...] BLOOD ORDERABLES Final R esult U LABORATORY [facility] [place] Core Lab [address] [facility], Room [address] [phone] * Ferritin (05/08/2024 2:49 PM CDT) Ferritin 23 6 - 175 ng/mL 05/08/2024 10:44 PM CDT U[facility] LABORATORY Blood BLOOD SPECIMEN / Unknown Venipuncture / Unknown 05/08/2024 2:49 PM CDT 05/08/2024 2:49 PM CDT us Esha Grimm PA-C LAB - BLOOD ORDERABLES Final R esult [facility] [place] [facility] [address] [facility], Room [address] [phone] * Comprehensive metabolic panel (BMP + [...] 10:16 PM CDT [facility] Comment:eGFR calculated usin g 2020 CKD-EPI equation. Calcium 9.2 8.8 - 10.4 [...] BLOOD ORDERABLES Final R esult [facility] LABORATORY [facility] [place] [facility] [address] [facility], Room [address] [place] [phone] * (ABNORMAL) CBC with platelets [...] BLOOD ORDERABLES Final R esult CR LABORATORY [facility] - [place] Lab [address] [facility] Lab (no room number, 1st floor of clinic) [place] [address], [facility] * UA Macroscopic with reflex to Microscopic [...] CDT CR LABORATORY Bilirubin Urine Negative Negative 2:51 PM CDT CR LABORATORY Ketones Urine Negative Negative mg/dL 05/08/2024 2:51 PM CDT CR LABORATORY Specific [place] Urine 1.010 1.003 - 1.035 05/08/2024 2:51 [...] LAB - URINE ORDERABLES Final R esult Performing Organization Address City/[facility]/ZIP Co de Phone Number CR LABORATORY [facility] Lab [address] [place] [address] Lab (no room number, 1st floor of [facility]) [place] [address] * (ABNORMAL) Wet prep - [...] 2:40 PM CDT 05/08/2024 3:00 PM CDT Esha Grimm PA-C LAB - MICRO GENERAL ORDERABLES Final Result Performing Organization Address [facility]/ZIP Co de Phone Number CR LABORATORY [facility] Lab [address] [place] [address] (no room number, 1st floor of [facility]) [place] [address] * ZIO PATCH 48 HOURS INTERPRETATION (04/28/2024 1:43 PM CDT) Anatomical Region Laterality Modality Other Narrative 04/28/2024 1:45 PM CDT Agree with findings Symptoms reported (9 episodes) were mostly related to sinus rhythm One episode of AV Wenkebach at 6:17 AM - commonly noted in young patients in early AM. Radha Lomeli PROMOTIONS PRODUCER ACETONE BUTTON PASTER CV CARDIAC SERVICES ORDERA BLES Final Result * HIV Antigen Antibody Combo (2024 10:11 AM CDT) HIV Antigen Antibody Combo Nonreactive Nonreactive 2024 9:57 PM CDT [facility]U LAB[facility]ATORY Comment:Negative HIV-1 p24 [...] BLOOD ORDERABLES Final R esult U LABORATORY [facility] Core Lab [address] [place] [address], [address] * Treponema Abs w Reflex to RPR and Titer (2024 10:11 AM CDT) Treponema Antibody Total Nonreactive Nonreactive 2024 8:35 PM CDT SPECIALTY CORE/PROT/EN DO Blood BLOOD SPECIMEN / Unknown Venipuncture / Unknown 2024 10:11 AM CDT 2024 10:11 AM CDT Esha Grimm PA-C LAB - BLOOD ORDERABLES Final R esult UM SPECIALTY CORE/PROT/ENDO Specialty Core/Prot/Endo [address] [facility] Unit [facility], Room [address] * Chlamydia & Gonorrhea by PCR, [facility] - Clinic Collect (2024 10:11 AM CDT) Chlamydia Trachomatis Negative Negative 04/24/2024 11:19 AM CDT UU IDD LABORATORY Comment: Negative for C. trachomatis rRNA by marine pipefitter mediated amplification. A negative result by marine pipefitter mediated amplification does not preclude the presence of infection because results are dependent on proper and adequate collection, absence of inhibitors and sufficient rRNA to be detected. Neisseria gonorrhoeae Negative Negative 04/24/2024 11:19 AM CDT [facility] Comment:Negative for N. gono rrhoeae rRNA by marine pipefitter mediated amplification. A negative result by marine pipefitter mediated amplification does not preclude the presence of C. trachomatis infection because results are dependent on proper and adequate collection, absence of inhibitors and sufficient rRNA to be detected. Swab VAGINAL STRUCTURE / Unknown Non-blood Collection / Unknown 2024 10:11 AM CDT 2024 10:34 AM CDT us Esha Grimm PA-C LAB - MICRO GENERAL ORDERABLES Final Result [facility] IDD LABORATORY [facility] Inf. Diseases Diag. Lab [address] [facility], Room [address] * Urinalysis Macroscopic (2024 10:11 AM CDT) Color Urine Yellow Colorless, Straw, Light Yellow, Yellow 2024 10:36 AM CDT LV LABORATORY Appearance Urine Clear Clear 04/23/20 24 10:36 AM CDT LV LABORATORY Glucose Urine Negative Negative mg/dL 2024 10:36 AM CDT LV LABORATORY Bilirubin Urine Negative Negative 10:36 AM CDT LV LABORATORY Ketones Urine Negative Negative mg/dL 2024 10:36 AM CDT LV LABORATORY Specific [place] Urine >=1.030 1.003 - 1.035 2024 10:36 [...] Urine Negative Negative 2024 10:36 AM CDT LABORATORY Urine MID-STREAM URINE SPECIMEN / Unknown Non-blood Collection / Unknown 2024 10:11 AM CDT 2024 10:34 AM CDT Esha Grimm PA-C LAB - URINE ORDERABLES Final R esult LABORATORY [facility] Lab [address] [facility] (no room number, 1st floor of clinic) [place] [address] * Symptomatic COVID-19 Virus (Coronavirus) by PCR Nose (04/09/2024 6:06 PM CDT) [facility] Signature SARS CoV2 PCR Negative Negative 04/10/2024 6:48 PM CDT [facility]AT[facility] Comment:NEGATIVE: SARS-CoV-2 (COVID-19) RNA not detected, presumed negative. Swab NASAL STRUCTURE / Unknown Non-blood Collection / Unknown 04/09/2024 6:06 PM CDT 04/09/2024 6:12 PM CDT Narrative [facility] - 04/10/2024 6:48 PM CDT Testing was performed using the Aptima SARS-CoV-2 Assay on the [employer] Instrument System. Additional information about this Emergency [...] COVID-19. This test was validated by the [facility] Infectious Diseases Diagnostic Laboratory. This laboratory is certified under the Clinical Laboratory Improvement Amendments of 1988 (CLIA-88) as qualified to perform high complexity laboratory testing. Matti David MD LAB - MICRO G ENERAL ORDERABLES Final Result UU IDD LABORATORY [facility] Inf. Diseases Diag. Lab [address] [facility], [address] [place] [address], [facility] * Influenza A/B antigen (04/09/2024 6:06 PM CDT) Pathologist [facility] Influenza A antigen Negative Negative 04/09/2024 6:31 [...] by a molecular assay or viral culture. Matti David MD LAB - MICRO G ENERAL ORDERABLES Final Result LV LABORATORY [facility] [place] Lab [address] [facility] Lab (no room number, 1st floor of clinic) [place] [address], [facility] * EKG 12 lead (04/07/2024 3:06 AM CDT) Systolic Blood Pressure mmHg RADIOLOGY RESULTS Diastolic Blood Pressure mmHg RADIOLOGY RESULTS Ventricular Rate 70 BPM RAD IOLOGY RESULTS Atrial Rate 70 BPM RADIOLOG Y RESULTS FL Interval 164 ms RADIOLOG Y RESULTS QRS Duration 96 ms RADIOLO GY RESULTS QT 398 ms RADIOLOGY RESULTS QTc 429 ms RADIOLOGY RESULTS P Stirum 46 degrees RADIOLOGY RESULTS R AXIS 67 degrees RADIOLOGY RESULTS T Stirum 48 degrees RADIOLOGY RESULTS Interpretation ECG Sinus rhythm Normal ECG When compared with ECG of 11-Jan-2024 09:55, No significant change was found Confirmed by - EMERGENCY ROOM, PHYSICIAN ([id number]), newspaper copy editor KEYLA MERIDA ([id number]) on 04/09/2024 7:15:00 AM RADIOLOGY RESULTS 04/07/2024 3:06 AM CDT 04/09/2024 7:15 AM CDT us Augustus Daugherty MD ECG ORDERABLES Edited Re sult - Final RADIOLOGY RESULTS * CT Chest w Contrast [...] Region Laterality Modality Other Radha Lomeli APRN ACETONE BUTTON PASTER CV CARDIAC SERVICES ORDERA BLES Final Result [...] indicated Nicole Garcia PA-C LAB - URINE ORDERABLES Final R esult LABORATORY [facility] Lab [address] [facility] Lab (no room number, 1st floor of clinic) [place] [address], [facility] * Hepatitis C antibody (12/21/2023 1:39 PM [...] CDT 12/21/2023 1:39 PM CDT Talishadimitry Diego JACOBS ACETONE BUTTON PASTER LAB - BLOOD ORDERABLES Final Result LABORATORY [facility] [place] Core Lab 500 [facility], Room [address] [address] * Pap screen reflex to HPV if ASCUS - recommend age 25 - 29 (09/22/2021 3:14 PM CDT) Interpretation Negative for Intraepithelial Lesion or Malignancy (NILM) 09/25/2021 10:27 AM CDT [facility] Comment Papanicolaou Test Limitations: [...] component of this testing was completed at [facility] Laboratory 09/25/2021 10:27 AM CDT SPECIALTY LABS Brushing CERVIX UTERI STRUCTURE / Unknown 09/22/2021 3:14 PM CDT 09/22/2021 3:48 PM CDT us Marija Edgar APRN ACETONE BUTTON PASTER LAB - BEAKER AP Final Re sult SPECIALTY LABS Specialty Lab [address] [facility] [address] [facility], [address] [place] [address], [facility] [phone] from Last 3 Months or Most Recently Relevant to Health Maintenance Insurance [facility] * Guarantor: Kim Johnson Account Type Relation to Patient Date of Phone Billing Address Medication Therapy Self [address] [place] [phone] [facility] * Guarantor: Percy Johnsonsakshi Medina Account Type Relation to Patient Date of Phone Billing Address Medication Therapy Self [address] [place] [phone] [facility] PMAP [facility] Advance Directives For more information, please contact: [phone] * Full Code (Latest Code Status on File) Date Activated Date Inactivated Comments 01/14/2021 7:36 AM 01/15/2021 6:05 PM All basic and advanced life-sustaining interventions are performed as appropriate Question Answer Comments Code status determined by: Discussion with patie nt/ legal decision maker Care Teams Mill Helper Relationship Specialty Start Date End Date Esha Grimm PA-C [address] [place] [phone] PCP - General Family Medicine 05/04/23 Diana Desir, [facility] [address] [place] [address] Pharmacist Pharmacist 04/17/21 Rain Galaviz PA-C [address] [place] [address] [address] [place] [address] Physician Camera Supervisor Dermatology 04/28/21 Tavia Wyatt MD [address] [place] [address] DR [facility] [address] Dermatology 07/14/21 Erica Farrell APRN [employer]TON PASTER [address] [place] [address] Nurse Practitioner Cardiovascular Disease 09/09/21 Rich Barrett MD [address] [place] [address] [phone] Physician Ophthalmology 01/21/22 Neil Kent MD [address] [place] [address] [phone] Dermatology 02/24/22 Diana Desir, [facility] [address] [place] [address] Assigned MTM Pharmacist 04/07/22 Livan Sharif MD [address] [place] [address] Cardiovascular Disease 05/14/22 Catherine Cm MD [address] [facility] [address] [place] [address] Cardiovascular Disease 07/21/22 Valery Veronica PA-C [address] [place] [address] [phone] Physician Camera Supervisor Dermatology 07/21/22 Brea Quinn APRN [employer] [address] [place] [address] [phone] Nurse Practitioner Dermatology 09/21/22 Alfonso Renteria MD [address] [facility] 200 [place], [place] 5[address]26 Assigned Neuroscience Provider 04/02/23 Radha Lomeli APRN [employer] [address] [facility] [address] [place] [phone] Assigned Heart and Vascular Provider 05/28/23 Jelena David OD [address] [facility] [address] Ophthalmology 06/15/23 Esha Grimm PA-C [address] [place] [phone] Assigned PCP 07/16/23 Valery Veronica PA-C [address] [place] [address] [phone] Physician Camera Supervisor Dermatology 09/19/23 Rey Tay MD 909 [place] [address] Gastroenterology 09/20/23 Rocky Zepeda DO 500 [place] [address] Physician Gastroenterology 09/20/23 Philip Dumont MD 6 [place] [address] Physician Ophthalmology 09/22/23 Meredith Carrera PA-C 9 [place] [address] Assigned Gastroenterology Provider 11/01/23 Neil Kent MD [address] [address] Dermatology 11/02/23 [place] [address] [address] Neurological Surgery 12/26/23 Audrey Waite PA-C 500 [place] [address] Physician Camera Supervisor Dermatology 02/28/24 Valery Veronica PA-C 540804 [address], [place] [address] Physician Camera Supervisor Dermatology 04/10/24
--- OUTSIDE RECORDS SUMMARY | 2024-05-27 08:43 | XMS_ITS | Encounter Summary ---
Author Organization [facility] Address [address] [place] [address] Care Team Providers Care [employer] Special [employer] Teacher Name Role Phone Diana Desir Stanislav [facility] Unavailable Rain Galaviz PA-C Unavailable Tavia Wyatt MD Unavailable Unavailable Erica Farrell CIVIL STRUCTURAL ENGINEER WEB MARKETING SPECIALIST Unavailable Rich Barrett MD Unavailable Neil Kent MD Unavailable Thang Diana Stanislav [facility] Unavailable [phone] Livan Sharif MD Unavailable Catherine Cm MD Unavailable + Valery Veronica-C Unavailable Brea Quinn CIVIL STRUCTURAL ENGINEER WEB MARKETING SPECIALIST Unavailable [phone] Alfonso Renteria MD Unavailable [phone] Esha Grimm PA-C Primary Care Provider Radha Lomeli APRN WEB MARKETING SPECIALIST Unavailable Jelena David OD Unavailable Esha Grimm PA-C Unavailable [phone] Valery Veronica PA-C Unavailable [phone] Rey Tay MD Unavailable Rocky Zepeda DO Unavailable Philip Dumont MD Unavailable [phone] Meredith Carrera PA-C Unavailable [phone] Neil Kent MD Unavailable Juan Pablo Emmanuel MD Unavailable [phone] Audrey Waite PA-C Unavailable [phone] Valery Veronica PA-C Unavailable [phone] Reason for Visit * Reason Comments Medication Therapy Management Encounter Details Date Type Department Care Team (Late st Contact Info) Description 05/17/2024 9:30 AM NON DESTRUCTIVE TESTING TECHNICIAN Virtual Visit [address] [phone] [facility] [address] [place], [place] [address] Anxiety (Primary Dx); Moderate major depression (H); 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 1 to 4 times [...] Answer Date Recorded PHQ-2 Score 1 02/07/2024 [facility] Questionnaire Answer [...] exercise at this level? 20 min 05/07/2024 [place] Depression Scale Answer Date Recorded [place] Depression Score 5 01/14/2021 Last EPDS [...] in an overnight halfway, or couch-surfing.) Yes 05/07/2024 Are you worried [...] PM CDT Legal Sex Female 4:13 AM NON DESTRUCTIVE TESTING TECHNICIAN Gender Identity Female 03/02/2021 5:45 PM CDT Sexual Orientation Straight 02/28/2020 12 :51 AM CDT documented as of this encounter Patient Instructions * Patient Instructions* Diana Desir, [facility] - 05/17/2024 9:30 AM NON DESTRUCTIVE TESTING TECHNICIAN Recommendations from today's MTM visit: No medication changes. Could consider switch paroxetine to vilazodone. Could also consider Zepbound for weight loss. It was great speaking with you today. I value your experience and would be very thankful for your time in providing feedback in our clinic survey. In the next few days, you may receive an email or text message from [employer] with a link to a survey related to your ???clinical pharmacist. To schedule another MTM appointment, please call the clinic directly or you may call the MTM scheduling line at [phone] or toll-free at . My Clinical Pharmacist's contact information: Please feel free to contact me with any questions or concerns you have. Diana Desir, PharmD, BCACP Medication Therapy Management Provider, [facility] DESTRUCTIVE TESTING TECHNICIAN documented in this encounter Progress Notes * Diana Desir RPH - 05/17/2024 9:30 AM CST Medication Therapy Management (MTM) Encounter ASSESSMENT: Medication Adherence/Access: No issues identified. Anxiety and Depression Paroxetine adequately controlling anxiety and depression but having side effects so she would like to consider switching. Discussed switching to vilazodone which has a lower risk of weight gain and she will consider or consider switch once stressors improved. Weight Management Pharmacotherapy may be considered for those with a BMI >30 kg/m2, or a BMI of 27 to 29.9 kg/m2 with weight-related comorbidities, who have not met weight loss goals (loss of at least 5 percent of total body weight at three to six months) with a comprehensive lifestyle intervention, she does meetthese criteria. Options include phentermine +/- topiramate, GLP1RA, or bupropion +/- naltrexone although would be cautious with phentermine with her anxiety. She will consider Zepbound per her preference. PLAN: No medication changes. Follow-up: Return if symptoms worsen or fail to improve, for Medication Therapy Management Pharmacist. SUBJECTIVE/OBJECTIVE: Kim Johnson is a 24 year old female seen for a follow-up visit. Reason for visit: depression and anxiety follow-up. Allergies/ADRs: Reviewed in chart Past Medical History: Reviewed in chart Tobacco: She reports that she quit smoking about 4 years ago. Her smoking use included cigarettes and other. She has a 4 pack-year smoking history. She has been exposed to tobacco smoke. She has never used smokeless tobacco. Alcohol: not currently using Medication Adherence/Access: no issues reported Anxiety/Depression: paroxetine 40 mg daily AM Lorazepam 0.5 mg as needed (needing about once every 2-3 weeks) Has gained over 20 lbs and not sure if all from paroxetine or stress. Feels paroxetine is working, but was very depressed last month, improved now. Still occasional anxiety, works on calming herself down. Following therapist regularly which helps. Past med trial: Buspirone (made her feel very weird, suicidal thoughts she thinks) Sertraline (obessive about certain things and ineffective after being on for so long on 200 mg/day) Venlafaxine (anxious, jittery, sweaty, felt terrible) Weight Management No current medications. Nutrition/Eating Habits: In school, so very stressed. Has been eating more candy lately but eats pretty healthy in general but eats too much. Appetite is very high right now so is eating more. 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 Exercise/Activity: No exercise, no time or energy. Medications Tried/Failed: None. Initial Consult Weight: 196 lbs Goal weight: 150 lbs but mostly just to lose weight for her health Wt Readings from Last 4 Encounters: 05/08/24 196 lb 10.4 oz (89.2 kg) 04/07/24 190 lb (86.2 kg) 03/30/24 195 lb (88.5 kg) 03/29/24 197 lb (89.4 kg) Estimated body mass index is 31.74 kg/m?? as calculated from the following: Height as of 05/08/24: 5' 6 (1.676 m). Weight as of 05/08/24: 196 lb 10.4 oz (89.2 kg). Today's Vitals: LMP (LMP Unknown) I spent 24 minutes with this patient today. All changes were made via collaborative practice agreement with Esha Grimm PA-C. A copy of the visit note was provided to the patient's provider(s). A summary of these recommendations was sent via [employer]. Diana Desir, PharmD, BCACP Medication Therapy Management Provider, [facility] [phone] Telemedicine Visit Details The patient's medications can be safely assessed via a telemedicine encounter. Type of service: Telephone visit Originating Location (pt. Location): Home Distant Location (provider location): On-site Start Time: 9:30 AM End Time: 9:54 AM Medication Therapy Recommendations No medication therapy recommendations to display DESTRUCTIVE TESTING TECHNICIAN documented in this encounter Plan of Treatment Upcoming Encounters Date Type Department Care Team (Late st Contact Info) Description 05/31/2024 8:40 AM NON DESTRUCTIVE TESTING TECHNICIAN Therapy Visit [address] [place] [phone] Ingris Thompson, PT [facility] [address] [place] [address] 106 [place] [address] 05/31/2024 3:30 PM NON DESTRUCTIVE TESTING TECHNICIAN Office Visit [facility] Specialty [address] [phone] Audrey Díaz, Herminia Koo MD [address] [place] [address] [phone] 06/04/2024 3:30 PM NON DESTRUCTIVE TESTING TECHNICIAN Office Visit [place] [phone] [facility] [address] [place] [phone] Jelena David, [address] [facility] [address] 06/11/2024 10:30 AM NON DESTRUCTIVE TESTING TECHNICIAN Appointment [facility] Respiratory Therapy [address] [place] [phone] Spec, Nurse Only Med 06/18/2024 2:50 PM NON DESTRUCTIVE TESTING TECHNICIAN Therapy Visit [address] [place] [phone] Ingris Thompson, PT [facility] [address] [place] [address] [phone] 06/21/2024 2:00 PM NON DESTRUCTIVE TESTING TECHNICIAN Office Visit [facility] Neurology Clinics - [address], [address] [place] [phone] [place] [address] [place], [place] [address] Johnny Penn MD [address] [place], [place] [address] 06/25/2024 8:30 AM NON DESTRUCTIVE TESTING TECHNICIAN Office Visit [address] [phone] Valery Veronica PA-C [address] [place] [address] 11/28/2024 7:45 AM CDT Virtual Visit [facility] [address] [place] [phone] Meredith Carrera PA-C [address] [place] [address] [phone] documented as of this encounter Visit Diagnoses Diagnosis Anxiety- Primary Anxiety state, unspecified Moderate major depression (H) Major depressive disorder, single episode, moderate 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 with body mass index (BMI) of 31.0 to 31.9 in adult documented in this encounter Additional Health Concerns Assessment Noted Time PHQ-9 Depression Total Score: 3 02/07/20 24 9:33 AM CDT documented as of this encounter Care Teams [employer] Special [employer] Teacher Relationship Specialty Start Date End Date Esha Grimm PA-C [address] [place] [phone] PCP - General Family Medicine 05/04/23 Diana Desir [facility] [address] [place] [address] Pharmacist Pharmacist 04/17/21 Rain Galaviz PA-C [address] [place] [address] [address] [place] [address] Physician Keeler Polygraph Operator Dermatology 04/28/21 Tavia Wyatt MD [address] [place] [address] [place] [address] Dermatology 07/14/21 Erica Farrell APRN WEB MARKETING SPECIALIST [address] [place] [address] Nurse Practitioner Cardiovascular Disease 09/09/21 Rich Barrett MD [address] [place] [address] 874855 Physician Ophthalmology 01/21/22 Neil Kent MD [address] [place] [address] [phone] Dermatology 02/24/22 Diana Desir, [facility] [address] [place] [address] [phone] Assigned [place] Pharmacist 04/07/22 Livan Sharif MD [address] [facility] [place] [address] Cardiovascular Disease 05/14/22 Catherine Cm MD [address] [facility] [place] [address] Cardiovascular Disease 07/21/22 Valery Veronica, PA-C [address] [place] [address] [phone] Physician Keeler Polygraph Operator Dermatology 07/21/22 Brea Quinn APRN WEB MARKETING SPECIALIST 500 [place], [place] 9[address] Nurse Practitioner Dermatology 09/21/22 Alfonso Renteria MD [address] [facility] [address] [place], [place] [address] Assigned Neuroscience Provider 04/02/23 Radha Lomeli APRN WEB MARKETING SPECIALIST [address] [phone] Assigned Heart and Vascular Provider 05/28/23 Jelena David OD [address] [facility] [address] [place] [id number] MD Ophthalmology 06/15/23 Esha Grimm PA-C [address] [place] [phone] Assigned PCP 07/16/23 Valery Veronica PA-C 9 [place], [place] [phone] Physician Keeler Polygraph Operator Dermatology 09/19/23 Rey Tay MD 909 [place], [place] 0[address] Gastroenterology 09/20/23 Rocky Zepeda DO 500 [place] [address] Physician Gastroenterology 09/20/23 Philip Dumont MD [address] [place] [address] Physician Ophthalmology 09/22/23 Meredith Carrera PA-C [address] [place] [address] Assigned Gastroenterology Provider 11/01/23 Neil Kent MD [address] [address] Dermatology 11/02/23 [place] [address] [place] [address] [address] Neurological Surgery 12/26/23 Audrey Waite PA-C [address] [place] [address] Physician Keeler Polygraph Operator Dermatology 02/28/24 Valery Veronica PA-C 495591 [address] [address] Physician Keeler Polygraph Operator Dermatology 04/10/24 documented as of this encounter
--- OUTSIDE RECORDS SUMMARY | 2024-05-27 08:43 | XMS_ITS | Clinical Summary ---
Author Organization [facility] Address [place], [place] [address] Care Team Providers Care Bone Process Operator Name Role Phone Pcp, No Primary Care Provider Unavailabl e Clinic, No Pcp Or Unavailable Unavailable Allergies Active Allergy Reactions Criticality Noted Date Comments Vancomycin Other - Describe In Comment Field Medications Medication Sig Dispensed Refills Start Date End Date Status biotin-silicon lswc-F-osimjdhw 3,000 mcg -100 mg-50 mg TbER Take [...] Apply topically to affected area(s). 09/12/2017 Active fluconazole (DIFLUCAN) 150 mg tablet TAKE 1 TABLET BY MOUTH EVERY 3 DAYS FOR 2 DOSES 02/27/2024 Active ketoconazole 2% shampoo (NIZORAL) 2 % shampoo USE EVERY 1-2 DAYS WHEN FLARED. LEAVE IN A FEW MINUTES BEFORE RINSING. USE TWICE WEEKLY TO PREVENT FLARES 03/18/2024 Active LORazepam (ATIVAN) 0.5 mg tab TAKE ONE TABLET BY MOUTH EVERY DAY NEEDED FOR ANXIETY 10/28/2023 Active metoprolol succinate (TOPROL XL) 25 mg Sustained-Release tablet Take 12.5 mg by mouth once daily. 02/27/2024 Active omeprazole (PRILOSEC) 40 mg Delayed-Release capsule Take 40 mg by mouth once daily. 03/18/2024 Active PARoxetine (PAXIL) 40 mg tablet Take 40 mg by mouth once daily in the morning. 03/21/2024 Active Retin-A 0.05 % cream APPLY TOPICALLY AT BEDTIME 09/02/2023 Active triamcinolone 0.1 % ointment APPLY TO AFFECTED AREA(S) ON BODY OR ARMS/LEGS TOPICALLY TWO TIMES A DAY UNTIL HEALED THEN STOP 07/27/2023 Active clindamycin (CLEOCIN-T) 1 % lotion APPLY TO AFFECTED AREA(S) TWO TIMES A DAY 10/14/2023 Active albuterol HFA (PRO-AIR; VENTOLIN; PROVENTIL) 90 mcg/actuation inhalerIndications:SOB (shortness of breath),Mild intermittent reactive airway disease without complication Inhale 1-2 Puffs by mouth every 4 hours if needed for Shortness Of Breath or Wheezing. 1 Each 03/25/2024 Active Active Problems No known active problems Encounters Date Type Department Care Team Description 03/25/2024 7:30 PM CDT Ancillary Procedure [facility] [address] [place] [address] [phone] 03/25/2024 6:40 PM CDT Office Visit [facility] [address] [place] [address] [phone] Italo Stacy PA Sob; Chest Pain 03/25/2024 Orders Only [facility] [address] [place] [address] [phone] Italo Stacy PA 2 scans: (2-Ord) AVUC EKG 03/25/2024 03/25/2024 Travel from Last 3 Months Social History Tobacco Use Types Packs/Day Years Used Date Smoking Tobacco: Never Smokeless Tobacco: Never Tobacco Cessation:Counseling Given: Not Answered Alcohol Use Standard Drinks/Week Comments Yes 0 (1 standard drink = 0.6 oz pur e alcohol) Sex and Gender Information Value Date Recorded Sex Assigned at Not on file Gender Identity Not on file Sexual Orientation Not on file Obstetrics History Last Filed Vital Signs Vital Sign Reading Time Taken Comments Blood Pressure 107/63 03/25/2024 6:59 PM CDT Pulse 72 03/25/2024 6:59 PM CDT Temperature 36.5 ??C (97.7 ??F) 03/25/2024 6:59 PM CD T Respiratory Rate 14 03/25/2024 6:59 PM CDT Oxygen Saturation 98% 03/25/2024 6:59 PM CDT Inhaled Oxygen Concentration - - Weight 89.3 kg (196 lb 14.4 oz) 019 11:46 AM PENETRATION TESTER Height 166.5 cm (5' 5.55) 08/31/2018 1 1:46 AM PENETRATION TESTER Body Mass Index 32.22 08/31/2018 11:46 AM PENETRATION TESTER Plan of Treatment Health Maintenance Due Date [...] Priority Date/Time Associated Diagnosis Comments CBC WITH AUTO DIFFERENTIAL STAT 03/25/2024 7:43 PM CDT Chest pain in adult Fatigue, unspecified type SOB (shortness of breath) CBC WITH AUTO DIFFERENTIAL STAT 03/25/2024 7:43 PM CDT Chest pain in adult Fatigue, unspecified type SOB (shortness of breath) UA W/ SEDIMENT EXAM REFLEXED PER CRITERIA STAT 03/25/2024 7:36 PM CDT Fatigue, unspecified type XR CHEST 2 VIEWS PA AND LATERAL STAT 03/25/2024 7:31 PM CDT Chest pain in adult Fatigue, unspecified type SOB (shortness of breath) COVID/FLU/RSV PANEL Routine 03/25/2024 7 :30 PM CDT Chest pain in adult Fatigue, unspecified type SOB (shortness of breath) EKG 12 LEAD Routine 03/25/2024 Chest pain in adult MT ECG ROUTINE ECG W/LEAST 12 LDS W/I&R Routine 03/25/2024 Chest pain in adult from Last 3 Months Results * CBC WITH AUTO DIFFERENTIAL (03/25/2024 7:43 PM CDT) WHITE BLOOD COUNT 7.8 4.5 - 11.0 thou/cu mm 03/25/2024 7:45 PM CDT [facility] RED BLOOD COUNT 4.63 4.00 - 5.20 mil/cu mm 03/25/2024 7:45 PM CDT [facility] HEMOGLOBIN 12.4 12.0 - 16.0 g/dL 03/25/2024 7:45 PM CDT [facility] HEMATOCRIT 37.8 33.0 - 51.0 % 03/25/2024 7:45 PM CDT [facility] MCV 82 80 - 100 fL 03/25/2024 7:45 PM CDT [facility] MCH 26.8 26.0 - 34.0 pg 03/25/2024 7:45 PM CDT [facility] MCHC 32.8 32.0 - 36.0 g/dL 03/25/2024 7:45 PM CDT [facility] RDW 13.1 11.5 - 15.5 % 03/25/2024 7:45 PM CDT [facility] PLATELET COUNT 251 140 - 440 thou/cu mm 03/25/2024 7:45 PM CDT [facility] MPV 10.3 6.5 - 11.0 fL 03/25/2024 7:45 PM CDT [facility] NRBC 0.0 % 03/25/2024 7:45 PM CDT [facility] ABS NRBC 0.0 thou /cu mm 03/25/2024 7:45 PM CDT [facility] % NEUT 57.3 % 03/25/2024 7:45 PM CDT [facility] % LYMPH 29.3 % 03/25/2024 7:45 PM CDT [facility] % MONO 7.4 % 03/25/2024 7:45 PM CDT [facility] % EOS 5.4 % 03/25/2024 7:45 PM CDT [facility] % BASO 0.5 % 03/25/2024 7:45 PM CDT [facility] % IMMATURE GRAN (METAS,MYELOS,MT OS) 0.1 % 03/25/2024 7:45 PM CDT [facility] ABSOLUTE NEUTROPHILS 4.5 1.7 - 7.0 thou/cu mm 03/25/2024 7:45 PM CDT [facility] ABSOLUTE LYMPHOCYTES 2.3 0.9 - 2.9 thou/cu mm 03/25/2024 7:45 PM CDT [facility] ABSOLUTE MONOCYTES 0.6 <0.9 thou/cu mm 03/25/2024 7:45 PM CDT [facility] ABSOLUTE EOSINOPHILS 0.4 <0.5 thou/cu mm 03/25/2024 7:45 PM CDT [facility] ABSOLUTE BASOPHILS 0.0 <0.3 thou/cu mm 03/25/2024 7:45 PM CDT [facility] ABSOLUTE IMMATURE GRANULOCYTES(MET ,MYELOS,PROS) 0.0 <0.3 thou/cu mm 03/25/2024 7:45 PM CDT [facility] Blood BLOOD SPECIMEN / Unknown Venipuncture / Unknown 03/25/2024 7:43 PM CDT 03/25/2024 7:43 PM CDT Italo Gabriel Shah HEMATOLOGY [facility] [address] [place] [address], [place] * UA W/ SEDIMENT EXAM REFLEXED PER CRITERIA (03/25/2024 7:36 PM CDT) COLOR Yellow Yellow Color 03/25/2024 7:38 PM CDT [facility] CLARITY Clear Clear Clarity 03/25/2024 7:38 PM CDT [facility] SPECIFIC GRAVITY,URINE 1.015 1.010, 1.015, 1.020, 1.025 03/25/2024 7:38 PM CDT [facility] PH,URINE 7.5 6.0, 7.0, 8.0, 5.5, 6.5, 7.5, 8.5 03/25/2024 7:38 PM CDT [facility] UROBILINOGEN,Q UALITATIVE Normal Normal EU/dl 03/25/2024 7:38 PM CDT [facility] PROTEIN, URINE Negative Negative mg/dL 03/25/2024 7:38 PM CDT [facility] GLUCOSE, URINE Negative Negative mg/dL 03/25/2024 7:38 PM CDT [facility] KETONES,URINE Negative Negative mg/dL 03/25/2024 7:38 PM CDT [facility] BILIRUBIN,URIN E Negative Negative 03/25/2024 7:38 PM CDT [facility] OCCULT BLOOD,URINE Negative Negative 03/25/2024 7:38 PM CDT [facility] NITRITE Negative Negative 03/25/2024 7:38 PM CDT [facility] LEUKOCYTE ESTERASE Negative Negative 03/25/2024 7:38 PM CDT [facility] Urine URINE SPECIMEN / Unknown Non-Blood / Unknown 03/25/2024 7:36 PM CDT 03/25/2024 7:36 PM CDT Italo Rios Le PA URINE [facility] [address] [facility] [place] [address], * XR CHEST 2 VIEWS PA AND LATERAL (03/25/2024 7:31 PM CDT) Anatomical Region Laterality Modality CHEST, THORAX, Lung, HEART Compu maddie Radiography 03/25/2024 7:31 PM CDT Impressions 03/25/2024 7:54 PM CDT Negative chest. Narrative 03/25/2024 7:54 PM CDT For Patients: As a result of the Cures Act, medical imaging exams and procedure reports are released immediately into your electronic medical record. You may view this report before your referring provider. If you have questions, please contact your health care provider. EXAM: XR CHEST 2 VIEWS PA AND LATERAL LOCATION: [facility] DATE: 03/25/2024 INDICATION: Chest Pain In Adult Fatigue, Unspecified Type Sob (shortness Of Breath) COMPARISON: 05/19/23, 05/13/23 Procedure Note Charles Santoro MD - 03/25/2024 For Patients: As a result of the s Act, medical imagingexams and procedure reports are released immediately into your electronicmedical record. You may view this report before your referring provider.If you have questions, please contact your health care provider. EXAM: XR CHEST 2 VIEWS PA AND LATERAL LOCATION: [facility] DATE: 03/25/2024 INDICATION: Chest Pain In Adult Fatigue, Unspecified Type Sob (shortnessOf Breath) COMPARISON: 05/19/23, 05/13/23 IMPRESSION: Negative chest. Italo Rios Le PA GENERAL IMAGING * COVID/FLU/RSV PANEL (03/25/2024 7:30 PM CDT) COVID 19 [facility] Negative Negative 03/26/2024 3:12 PM CDT [facility] Comment:All PCR tests are lazo bject to false negative result due to variability in viral load and collection technique. A negative result does not rule out a SARS-CoV-2 infection. Clinical correlation required. INFLUENZA A PCR Negative 4 3:12 PM CDT [facility] INFLUENZA B PCR Negative 4 3:12 PM CDT [facility] Respiratory Syncytial Virus Negative 03/26/2024 3:12 PM CDT [facility] Swab NASOPHARYNGEAL SWAB / Unknown Non-Blood / Unknown 03/25/2024 7:30 PM CDT 03/25/2024 7:30 PM CDT Italo Shah [facility] [address] [place] [address], * MT ECG ROUTINE ECG W/LEAST 12 LDS W/I&R (03/25/2024) Italo Shah PB - [facility] * EKG 12 LEAD (03/25/2024) Italo Shah EKG ORD from Last 3 Months Care Teams Bone Process Operator Relationship Specialty Start Date End Date Pcp, No . PCP - General 03/25/24 Clinic, No Pcp Or . 03/25/24
--- OUTSIDE RECORDS SUMMARY | 2024-05-27 08:43 | XMS_ITS | Encounter Summary ---
Author Organization [place] Address [address] [place] [address] Care Team Providers Care Modern Greek Studies Professor Name Role Phone Diana Desir Stanislav [facility] Unavailable Rain Galaviz PA-C Unavailable Tavia Wyatt MD Unavailable Unavailable Erica Farrell WINDOWS APPLICATION PACKAGER CENTRAL OFFICE MECHANIC Unavailable Rich Barrett MD Unavailable Neil Kent MD Unavailable Thang Diana Stanislav [facility] Unavailable [phone] Livan Sharif MD Unavailable Catherine Cm MD Unavailable + Valery Veronica-C Unavailable [phone] Brea Quinn WINDOWS APPLICATION PACKAGER CENTRAL OFFICE MECHANIC Unavailable Alfonso Renteria MD Unavailable [phone] Esha Grimm PA-C Primary Care Provider [phone] Radha Lomeli APRN CENTRAL OFFICE MECHANIC Unavailable Jelena David OD Unavailable Esha Grimm PA-C Unavailable [phone] Valery Veronica PA-C Unavailable [phone] Rey Tay MD Unavailable Rocky Zepeda DO Unavailable Philip Dumont MD Unavailable [phone] Meredith Carrera PA-C Unavailable [phone] Neil Kent MD Unavailable Juan Pablo Emmanuel MD Unavailable [phone] Audrey Waite PA-C Unavailable [phone] Valery Veronica PA-C Unavailable Reason for Visit * Reason Onset Date Comments Refill Request 05/18/2024 metoprolol Encounter Details Date Type Department Care Team (Late st Contact Info) Description [facility] [address] [place] [address] [address] [place] [address] Radha Lomeli E, WINDOWS APPLICATION PACKAGER CENTRAL OFFICE MECHANIC [address] [place] [address] Refill Request (metoprolol) Social History Tobacco Use [...] exercise at this level? 20 min 05/07/2024 Harvest Depression Scale Answer Date Recorded Harvest Depression Score 5 01/14/2021 Last EPDS Self [...] an overnight group home, or couch-surfing.) Yes 05/07/2024 Are you worried [...] PM CDT Legal Sex Female 4:13 AM ADULT EDUCATION MANAGER Gender Identity Female 03/02/2021 5:45 PM CDT Sexual Orientation Straight 02/28/2020 12 :51 AM CDT documented as of this encounter Miscellaneous Notes * Telephone Encounter - Libra Fish, RN - 05/18/2024 11:50 AM CST [facility] Cardiology Refill Guideline reviewed. Medication meets criteria for refill. T EDUCATION MANAGER documented in this encounter Plan of Treatment Upcoming Encounters Date Type Department Care Team (Late st Contact Info) Description 05/31/2024 8:40 AM ADULT EDUCATION MANAGER Therapy Visit [facility] [address] [place] [address] Ingris Thompson, PT [facility] [address] [place] [address] 05/31/2024 3:30 PM ADULT EDUCATION MANAGER Office Visit [facility] [address] [address] [place] [phone] Audrey Díaz, Herminia Koo MD [facility] [place] [address] 06/04/2024 3:30 PM ADULT EDUCATION MANAGER Office Visit [place] [address] [facility] [address] [place] [phone] Jelena David, [address] [facility] [place] [address] 06/11/2024 10:30 AM ADULT EDUCATION MANAGER Appointment [facility] Respiratory Therapy [address] [place] [phone] Spec, Nurse Only Med 06/18/2024 2:50 PM ADULT EDUCATION MANAGER Therapy Visit [facility] [address] [place] [phone] Ingris Thompson, PT [facility] [address] [facility] [address] [place], [place] [address] 06/21/2024 2:00 PM ADULT EDUCATION MANAGER Office Visit [facility] [place] [address] [place] [address], [address] [place] [phone] [place] [address] [place] [address] Johnny Penn MD [address] [facility] [place] [id number] 06/25/2024 8:30 AM ADULT EDUCATION MANAGER Office Visit [address] [phone] Valery Veronica PA-C [address] [place] [address] 11/28/2024 7:45 AM CDT Virtual Visit [facility] [address] 4th [place] [phone] Meredith Carrera PA-C [address] [place] [address] documented as of this encounter Visit Diagnoses Diagnosis Palpitations documented in this encounter Additional Health Concerns Assessment Noted Time PHQ-9 Depression Total Score: 3 02/07/20 24 9:33 AM CDT documented as of this encounter Care Teams Modern Greek Studies Professor Relationship Specialty Start Date End Date Esha Grimm PA-C [address] [place] [phone] PCP - General Family Medicine 05/04/23 Diana Desir, [facility] [address] [place], [place] [phone] Pharmacist Pharmacist 04/17/21 Rain Galaviz PA-C [address] [place] [address] [address] [place] [address] Physician Cooker Meal Dermatology 04/28/21 Tavia Wyatt MD [address] [place] [address] [address] [place] [address] Dermatology 07/14/21 Erica Farrell APRN CENTRAL OFFICE MECHANIC [address] [facility] [address] [place] [address] Nurse Practitioner Cardiovascular Disease 09/09/21 Rich Barrett MD [address] [facility] [address] [place], [place] [address] Physician Ophthalmology 01/21/22 Neil Kent MD [address] [place], [place] 6[address] MD Dermatology 02/24/22 [facility] [address] [place], [place] [address]376 Assigned MTM Pharmacist 04/07/22 Livan Sharif MD [address], [facility] [address] [place], [place] [address] Cardiovascular Disease 05/14/22 Catherine Cm MD [address] [facility] [place], [place] [address] Cardiovascular Disease 07/21/22 Valery Veronica, PA-C [address] [place], [place] [address] Physician Cooker Meal Dermatology 07/21/22 Brea Quinn APRN CENTRAL OFFICE MECHANIC [address] [place] [address] Nurse Practitioner Dermatology 09/21/22 Alfonso Renteria MD [address] [facility] [address] [place], [place] [address] Assigned Neuroscience Provider 04/02/23 Radha Lomeli APRN CENTRAL OFFICE MECHANIC [address] [place] [address] Assigned Heart and Vascular Provider 05/28/23 Jelena David OD [address] [place] [address] MD Ophthalmology 06/15/23 Esha Grimm PA-C [address] [place] [phone] Assigned PCP 07/16/23 Valery Veronica PA-C [address] [place] [address] [phone] Physician Cooker Meal Dermatology 09/19/23 Rey Tay MD [address] [place] [address] 474195 Gastroenterology 09/20/23 Rocky Zepeda DO [address] [place] [address] 277[address] Physician Gastroenterology 09/20/23 Philip Dumont MD [address] [place] [address] [phone] Physician Ophthalmology 09/22/23 Meredith Carrera PA-C [address] [place] [address] 120925 Assigned Gastroenterology Provider 11/01/23 Neil Kent MD [address] [phone] Dermatology 11/02/23 [place] [address] [address] Neurological Surgery 12/26/23 Audrey Waite PA-C [address] [place], [place] 8[address] Physician Cooker Meal Dermatology 02/28/24 Valery Veronica PA-C [address] [place] [address] Physician Cooker Meal Dermatology 04/10/24 documented as of this encounter
--- OUTSIDE RECORDS SUMMARY | 2024-05-27 08:44 | XMS_ITS | Encounter Summary ---
Author Organization [facility] Address [address] [place] [address] Care Team Providers Care Machine Package Sealer Name Role Phone Diana Desir Stanislav [facility] Unavailable Rain Galaviz PA-C Unavailable Tavia Wyatt MD Unavailable Unavailable Erica Farrell PAINTER INTERIOR FINISH ONCOLOGY ACCOUNT SPECIALIST Unavailable Rich Barrett MD Unavailable Neil Kent MD Unavailable Thang Diana Stanislav [facility] Unavailable [phone] Livan Sharif MD Unavailable Catherine Cm MD Unavailable + Valery Veronica-C Unavailable Brea Quinn PAINTER INTERIOR FINISH ONCOLOGY ACCOUNT SPECIALIST Unavailable Alfonso Renteria MD Unavailable [phone] Esha Grimm PA-C Primary Care Provider Radha Lomeli APRN ONCOLOGY ACCOUNT SPECIALIST Unavailable Jelena David OD Unavailable Esha Grimm PA-C Unavailable Valery Veronica PA-C Unavailable [phone] Rey Tay MD Unavailable Rocky Zepeda DO Unavailable Philip Dumont MD Unavailable [phone] Meredith Carrera PA-C Unavailable [phone] Neil Kent MD Unavailable Juan Pablo Emmanuel MD Unavailable [phone] Audrey Wa[place] PA-C Unavailable [phone] Valery Veronica PA-C Unavailable Reason for Visit * Reason Onset Date Comments Forms 05/08/2024 DMV(LOC) Encounter Details Date Type Department Care Team (Late st Contact Info) Description 05/08/2024 Telephone Earl [facility] Epilepsy Care [address], [address] [place] [address] Alfonso Renteria MD [address] [facility] [address] [place] [address] Forms (DMV(LOC)) Social History Tobacco Use Types Packs/Day Years [...] week 05/07/2024 How often do you attend [facility] or mandaeism services? 1 to 4 [...] exercise at this level? 20 min 05/07/2024 [place] Depression Scale Answer Date Recorded [place] Depression Score 5 01/14/2021 Last EPDS Self [...] in an overnight assisted, or couch-surfing.) Yes 05/07/2024 Are you worried [...] PM CDT Legal Sex Female 4:13 AM MIDDLE SCHOOL COMBINATION TEACHER Gender Identity Female 03/02/2021 5:45 PM CDT Sexual Orientation Straight 02/28/2020 12 :51 AM CDT documented as of this encounter Miscellaneous Notes * Telephone Encounter - Yfn Peck MA - 05/22/2024 1:26 PM CST DMV form signed, faxed and mailed to [employer] on 05/22/24, sent to scanning, and copy mailed to patient. LE SCHOOL COMBINATION TEACHER * Telephone Encounter - Yfn Peck MA - 05/21/2024 4:59 PM CST DMV form placed in provider in-basket to be completed. LE SCHOOL COMBINATION TEACHER * Telephone Encounter - Niles Liang LPN - 05/08/2024 4:00 PM CDT Received DMV(LOC) Form to be completed. Form saved to drive, encounter routed. Niles Liang LPN documented in this encounter Plan of Treatment Upcoming Encounters Date Type Department Care Team (Late st Contact Info) Description 05/31/2024 8:40 AM MIDDLE SCHOOL COMBINATION TEACHER Therapy Visit [address] [phone] Ingris Thompson, PT [facility] [address] [place] [address] 979735 05/31/2024 3:30 PM MIDDLE SCHOOL COMBINATION TEACHER Office Visit [facility] [address] [address] Audrey Díaz, Herminia Koo MD [address] [place] [address] 06/04/2024 3:30 PM MIDDLE SCHOOL COMBINATION TEACHER Office Visit [address] [place] [phone] Jelena David, [address] [place] [address] 06/11/2024 10:30 AM MIDDLE SCHOOL COMBINATION TEACHER Appointment [facility] Respiratory Therapy [address] [place] [phone] Spec, Nurse Only Med 06/18/2024 2:50 PM MIDDLE SCHOOL COMBINATION TEACHER Therapy Visit [address] [phone] Ingris Thompson, PT [address] [address] 06/21/2024 2:00 PM MIDDLE SCHOOL COMBINATION TEACHER Office Visit [facility] [place] [address] [facility], [address] [place] [phone] [place] [address] [place], [place] [address] Johnny Penn MD [address] [place], [place] 6536[address] 06/25/2024 8:30 AM MIDDLE SCHOOL COMBINATION TEACHER Office Visit [address] [phone] Valery Veronica PAUcheC [address] [place] [address] 615375 11/28/2024 7:45 AM CDT Virtual Visit [facility] [address] 4[address] [place] [phone] Meredith Carrera, PAUcheC [address] [place] [address]805 documented as of this encounter Visit Diagnoses Not on filedocumented in this encounter Additional Health Concerns Assessment Noted Time PHQ-9 Depression Total Score: 3 02/07/20 24 9:33 AM CDT documented as of this encounter Care Teams Machine Package Sealer Relationship Specialty Start Date End Date Esha Grimm PA-C [address] [place] [phone] PCP - General Family Medicine 05/04/23 Diana Desir, [facility] [address] [place] [address] Pharmacist Pharmacist 04/17/21 Rain Galaviz PA-C [address] [place] [address] [address] [place] [address] Physician Braiding Operator Dermatology 04/28/21 Tavia Wyatt MD [address] [place] [address] [address] [place] [address] Dermatology 07/14/21 Erica Farrell APRN ONCOLOGY ACCOUNT SPECIALIST [address] [place], [place] 9966[address] Nurse Practitioner Cardiovascular Disease 09/09/21 Rich Barrett MD [address] [place] [address] 018095 Physician Ophthalmology 01/21/22 Neil Kent MD [address] [place] [address] 317195 Dermatology 02/24/22 [facility] [address] [place] [address] 170176 Assigned [place] Pharmacist 04/07/22 Livan Sharif MD [address], [facility] [address] [place], [place] 5309[address] Cardiovascular Disease 05/14/22 Catherine Cm MD [address] [facility] [address] [place], [place] [address] Cardiovascular Disease 07/21/22 Valery Veronica, [place] [address] [place] [address] Physician Braiding Operator Dermatology 07/21/22 Brea Quinn APRN ONCOLOGY ACCOUNT SPECIALIST 500 [place] [address] Nurse Practitioner Dermatology 09/21/22 Alfonso Renteria MD 5775 [facility] [address] 200 [place] [address] Assigned Neuroscience Provider 04/02/23 Radha Lomeli APRN ONCOLOGY ACCOUNT SPECIALIST 6405 [facility] [address] [place] [address] Assigned Heart and Vascular Provider 05/28/23 Jelena David OD [address] [facility] [place] [address] Ophthalmology 06/15/23 Esha Grimm PA-C [address] [place] [address] Assigned PCP 07/16/23 Valery Veronica PA-C 909 [place] [address] Physician Braiding Operator Dermatology 09/19/23 Rey Tay MD 9 [place], [place] 619625 Gastroenterology 09/20/23 Rocky Zepeda DO 500 [place], [place] 610425 Physician Gastroenterology 09/20/23 Philip Dumont MD 516 [place] [address] Physician Ophthalmology 09/22/23 Meredith Carrera PA-C [address] [place] [address] Assigned Gastroenterology Provider 11/01/23 Neil Kent MD [address] 151340 MD Dermatology 11/02/23 [place] [address] [place] [address] 169657 Neurological Surgery 12/26/23 Audrey [place] PA-C 500 [place], [place] 919015 Physician Braiding Operator Dermatology 02/28/24 Valery Veronica PA-C [address] [place] [address] Physician Braiding Operator Dermatology 04/10/24 documented as of this encounter
--- OUTSIDE RECORDS SUMMARY | 2024-05-27 08:44 | XMS_ITS | Encounter Summary ---
Author Organization [facility] Address [address] [place] [address] Care Team Providers Care Space Control Supervisor Name Role Phone Diana Desir Stanislav [facility] Unavailable Rain Galaviz PA-C Unavailable [phone] Tavia Wyatt MD Unavailable Unavailable Erica Farrell HEARINGS REPORTER PHP ARCHITECT Unavailable Rich Barrett MD Unavailable Neil Kent MD Unavailable Thang Diana Stanislav [facility] Unavailable [phone] Livan Sharif MD Unavailable Catherine Cm MD Unavailable + Valery Veronica-C Unavailable Brea Quinn HEARINGS REPORTER PHP ARCHITECT Unavailable Alfonso Renteria MD Unavailable [phone] Esha Grimm PA-C Primary Care Provider Radha Lomeli APRN PHP ARCHITECT Unavailable Jelena David OD Unavailable Esha Grimm PA-C Unavailable [phone] Valery VeronicaC Unavailable [phone] Rey Tay MD Unavailable Rocky Zepeda DO Unavailable Philip Dumont MD Unavailable [phone] Meredith CarreraC Unavailable [phone] Neil Kent MD Unavailable Juan Pablo Emmanuel MD Unavailable [phone] Audrey [place] PA-C Unavailable [phone] Valery Veronica PA-C Unavailable [phone] Encounter Details Date Type Department Care Team (Latest Contact Info) Description 05/14/2024 Travel Social History Tobacco Use Types Packs/Day [...] week 05/07/2024 How often do you attend [facility] or sikhism services? 1 to 4 [...] Answer Date Recorded PHQ-2 Score 1 02/07/2024 [facility] - Occupational [...] exercise at this level? 20 min 05/07/2024 [place] Depression Scale Answer Date Recorded [place] [...] an overnight senior care, or couch-surfing.) Yes 05/07/2024 Are you worried [...] PM CDT Legal Sex Female 4:13 AM TENTS ASSEMBLER Gender Identity Female 03/02/2021 5:45 PM CDT Sexual Orientation Straight 02/28/2020 12 :51 AM CDT documented as of this encounter Plan of Treatment Upcoming Encounters Date Type Department Care Team (Late st Contact Info) Description 05/31/2024 8:40 AM TENTS ASSEMBLER Therapy Visit [facility] [address] [place] [phone] Ingris Thompson, PT [facility] [address] [place] [address] [phone] 05/31/2024 3:30 PM TENTS ASSEMBLER Office Visit [facility] Specialty [address] [phone] Audrey Díaz, Herminia Koo MD [address] [place] [address] 06/04/2024 3:30 PM TENTS ASSEMBLER [facility] [address] [place] [address] [address] [place] [phone] Jelena David, SONJA [address] [place] [address] [place] [address] 06/11/2024 10:30 AM TENTS ASSEMBLER [facility]ointment [facility] Respiratory Therapy [address] [place] [address] Spec, Nurse Only Med 06/18/2024 2:50 PM TENTS ASSEMBLER Therapy Visit [facility] [address] [place] [address] [address] [place] [phone] Ingris Thompson, PT [facility] [address] [facility] 106 [place], [place] 3049[address] 06/21/2024 2:00 PM TENTS ASSEMBLER Office Visit [facility] [place] [address] [facility], [address] [place] [phone] [place] [address] [place], [place] 0512[address] Johnny Penn MD 6579 [facility] [place], [place] 1237[address] 06/25/2024 8:30 AM TENTS ASSEMBLER Office Visit [address] [phone] Valery Veronica PA-C [address] [place] [address] 914945 11/28/2024 7:45 AM CDT Virtual Visit [facility] [address] 4th [place] [phone] Meredith Carrera PA-C [address] [place] [place] [address] 877305 documented as of this encounter Visit Diagnoses Not on filedocumented in this encounter Additional Health Concerns Assessment Noted Time PHQ-9 Depression Total Score: 3 02/07/20 24 9:33 AM CDT documented as of this encounter Care Teams Space Control Supervisor Relationship Specialty Start Date End Date Esha Grimm PA-C [address] [place] [address] PCP - General Family Medicine 05/04/23 Diana Desir, [facility] [address] [place] [address] Pharmacist Pharmacist 04/17/21 Rain Galaviz PA-C [address] [place] [address] [address] [place] [address] Physician Serology Technician Dermatology 04/28/21 Tavia Wyatt MD [address] [place] [address] [address] [facility] [place] [address] Dermatology 07/14/21 Erica Farrell, ARLENE PHP ARCHITECT [address] [place], [place] 3698[address] Nurse Practitioner Cardiovascular Disease 09/09/21 Rich Barrett MD 516 [facility] 9A [place], [place] [address]155 Physician Ophthalmology 01/21/22 Neil Kent MD 500 [place], [place] 412085 Dermatology 02/24/22 Diana Desir, [facility] [address] [place] [address] Assigned MTM Pharmacist 04/07/22 Livan Sharif MD [address] [place] [address] Cardiovascular Disease 05/14/22 Catherine Cm MD [address] [facility] [address] [place] [address] Cardiovascular Disease 07/21/22 Valery Veronica PA-C [address] [place] [address]285 Physician Serology Technician Dermatology 07/21/22 Brea Quinn APRN PHP ARCHITECT [address] [place] [address] 213995 Nurse Practitioner Dermatology 09/21/22 Alfonso Renteria MD 5775 [facility] 200 [place], [place] 289916 Assigned Neuroscience Provider 04/02/23 Radha Lomeli APRN PHP ARCHITECT [address] [place] [address] Assigned Heart and Vascular Provider 05/28/23 Jelena David OD [facility] [place] [address] Ophthalmology 06/15/23 Esha Grimm PA-C [address] [place] [phone] Assigned PCP 07/16/23 Valery Veronica PA-C [address] [place] [address] Physician Serology Technician Dermatology 09/19/23 Rey Tay MD 9 [place] [address] MD Gastroenterology 09/20/23 Rocky Zepeda DO 500 [place] [address] Physician Gastroenterology 09/20/23 Philip Dumont MD 516 [place] [address] Physician Ophthalmology 09/22/23 Meredith Carrera PA-C 9 [place] [address] Assigned Gastroenterology Provider 11/01/23 Neil Kent MD [address] [place] [address] Dermatology 11/02/23 [place] [address] [place] [address] Neurological Surgery 12/26/23 Audrey Waite PA-C 500 [place] [address] Physician Serology Technician Dermatology 02/28/24 Valery Veronica PA-C [address] [place] [address] Physician Serology Technician Dermatology 04/10/24 documented as of this encounter
--- OUTSIDE RECORDS SUMMARY | 2024-05-27 08:44 | XMS_ITS | Encounter Summary ---
Author Organization [facility] Address [address] [place] [address] Care Team Providers Care Pipe Jeeper Name Role Phone Diana Desir [facility] Unavailable Rain Galaviz PA-C Unavailable [phone] Tavia Wyatt MD Unavailable Unavailable Erica Farrell EXTENSION COURSE COORDINATOR TAMALE MAKER Unavailable Rich Barrett MD Unavailable Neil Kent MD Unavailable ThangDiana [facility] Unavailable [phone] Livan Sharif MD Unavailable Catherine Cm MD Unavailable + Valery Veronica PA-C Unavailable [phone] Brea Quinn EXTENSION COURSE COORDINATOR TAMALE MAKER Unavailable Brea Quinn EXTENSION COURSE COORDINATOR TAMALE MAKER Unavailable Jose Francisco Johnson MD Unavailable Alfonso Renteria MD Unavailable [phone] Esha Grimm PA-C Primary Care Provider [phone] Radha Lomeli EXTENSION COURSE COORDINATOR TAMALE MAKER Unavailable Jelena David OD Unavailable Esha Grimm PA-C Unavailable [phone] Valery Veronica PA-C Unavailable [phone] Rey Tay MD Unavailable Rocky Zepeda DO Unavailable Philip Dumont MD Unavailable [phone] Meredith Carrera PA-C Unavailable Neil Kent MD Unavailable Juan Pablo Emmanuel MD Unavailable Audrey Waite PA-C Unavailable Valery Veronica PA-C Unavailable Encounter Details Date Type Department Care Team (Late st Contact Info) Description 04/24/2024 Telephone [facility] [address] [place] [address] Natali Serrano, RN Social History Tobacco Use Types Packs/Day [...] friends, or neighbors? Three times a week 03/28/20 How often do you get togethe r with friends or relatives? Twice a week 03/28/2024 How often do you attend chur ch or judaism services? 1 to 4 times per year 03/28/2024 Do you belong to any clubs o r organizations such as baptism groups, unions, fraternal or athletic groups, or school groups? No 03/28/2024 How often do you attend meet ings of the clubs or organizations you belong to? Never 03/28/2024 Are you , , di vorced, , never , or living with a partner? Never 03/28/2024 AUDIT-C Answer Date Recorded Q1: How often [...] Answer Date Recorded PHQ-2 Score 1 02/07/2024 [facility] - Occupational Stress Questionnaire Answer Date Recorded Do you feel stress - tense, restless, nervous, or anxious, or unable to sleep at night because your mind is troubled all the time - these days? To some extent 03/28/2024 Exercise Vital Sign Answer Date Recorde d On average, how many days pe r week do you engage in moderate to strenuous exercise (like a brisk walk)? 3 days 03/28/2024 On average, how many minutes do you engage in exercise at this level? 30 min 03/28/2024 [place] Depression Scale Answer Date Recorded [place] Depression Score 5 01/14/2021 Last EPDS Self Harm Result Not on file 01/14 Adolescent Education Answer Date Record ed Getting School Help Needed Not on file 04/04 Food Insecurity Answer Date Recorded Within the past 12 months, d id you worry that your food would run out before you got money to buy more? No 03/28/2024 Within the past 12 months, d id the food you bought just not last and you didn? t have money to get more? No 03/28/2024 Housing Stability Answer Date Recorded Do you have housing? (Housin g is defined as stable permanent housing and does not include staying ouside in a car, in a tent, in an abandoned building, in an overnight residential, or couch-surfing.) Yes 03/28/2024 Are you worried about losing your housing? No 03/28/2024 Financial Resource Strain Answer Date R ecorded Within the past 12 months, h ave you or your family members you live with been unable to get utilities (heat, electricity) when it was really needed? No 03/28/2024 Transportation Needs Answer Date Record ed Within the past 12 months, h as lack of transportation kept you from medical appointments, getting your medicines, non-medical meetings or appointments, work, or from getting things that you need? No 03/28/2024 Interpersonal Safety Answer Date Record ed Do [...] PM CDT Legal Sex Female 4:13 AM WATER SUPERINTENDENT Gender Identity Female 03/02/2021 5:45 PM CDT Sexual Orientation Straight 02/28/2020 12 :51 AM CDT documented as of this encounter Miscellaneous Notes * Telephone Encounter - Natali Serrano RN - 04/24/2024 12:42 PM CDT error documented in this encounter Plan of Treatment Upcoming Encounters Date Type Department Care Team (Late st Contact Info) Description 05/31/2024 8:40 AM WATER SUPERINTENDENT Therapy Visit [facility] [address] 160 [place] [phone] Ingris Thompson, PT [facility] [address] [place] [address] 05/31/2024 3:30 PM WATER SUPERINTENDENT Office Visit [facility] [address] [address] Audrey Díaz, Herminia Koo MD 1874 [place] [address] 06/04/2024 3:30 PM WATER SUPERINTENDENT Office Visit [facility] [place] [address] [facility] [address] [place] [phone] Frankie Jelenamao Garcia, [address] [facility] [place] [address] 06/11/2024 10:30 AM WATER SUPERINTENDENT Appointment [facility] Respiratory Therapy [address] [place] [phone] Spec, Nurse Only Med 06/18/2024 2:50 PM WATER SUPERINTENDENT Therapy Visit [facility] [address] [place] [phone] Ingris Thompson, PT [facility] 6 [facility] 106 [place] [address] 06/21/2024 2:00 PM WATER SUPERINTENDENT Office Visit [facility] [place] [address] [place] [address] [address] [place] [phone] [place] [address] [place] [address] Johnny Penn MD 6550 [place], [place] [address]135 06/25/2024 8:30 AM WATER SUPERINTENDENT Office Visit [address] [phone] Valery Veronica PA-C 909 [place] [address] 11/28/2024 7:45 AM CDT Virtual Visit [facility] [place] 9[address] [facility] 4th [place] [phone] Meredith Carrera PA-C 909 [place] [address] documented as of this encounter Visit Diagnoses Not on filedocumented in this encounter Additional Health Concerns Assessment Noted Time PHQ-9 Depression Total Score: 3 02/07/20 24 9:33 AM CDT documented as of this encounter Care Teams Pipe Jeeper Relationship Specialty Start Date End Date Esha Grimm PA-C [address] [place] [phone] PCP - General Family Medicine 05/04/23 [facility] 3033 [place] [address] Pharmacist Pharmacist 04/17/21 Rain Galaviz PA-C [address] [place] [address] [address] [place] [address] Physician Submarine Diver Dermatology 04/28/21 Tavia Wyatt MD [address] [place] [address] [address] [place] [address] Dermatology 07/14/21 Erica Farrell APRN TAMALE MAKER 6405 [facility] [address] [place] [address] Nurse Practitioner Cardiovascular Disease 09/09/21 Rich Barrett MD 516 [facility] CLINIC 9A [place], [place] 4[address] Physician Ophthalmology 01/21/22 Neil Kent MD 500 [place], [place] 350315 Dermatology 02/24/22 Diana Desir, [facility] 3033 [place], [place] 9[address]156 Assigned MTM Pharmacist 04/07/22 Livan Sharif MD [address] [place] 8[address]175 Cardiovascular Disease 05/14/22 Catherine Cm MD [address] [facility] [place] 586505 Cardiovascular Disease 07/21/22 Valery Veronica, PA-C 909 [place], [place] [address]505 Physician Submarine Diver Dermatology 07/21/22 Brea Quinn APRN TAMALE MAKER 500 [place] [address] Nurse Practitioner Dermatology 09/21/22 Brea Quinn APRN TAMALE MAKER [address] [facility] [place] 499842 Assigned Surgical Provider 10/09/22 05/01/24 [place] [address] [place] [address] Assigned Musculoskeletal Provider 10/09/22 05/01/24 Alfonso Renteria MD [address] [place], [place] 7[address] Assigned Neuroscience Provider 04/02/23 Armani Radha ARLENE Stovall TAMALE MAKER 6405 [facility] [address] [place], [place] [address] Assigned Heart and Vascular Provider 05/28/23 Jelena David OD [address] [facility] [address] [place] [id number] MD Ophthalmology 06/15/23 Esha Grimm PA-C [address] [place] [phone] Assigned PCP 07/16/23 Valery Veronica PA-C [address] [place] [address] 116835 Physician Submarine Diver Dermatology 09/19/23 Rey Tay MD 909 [place], [place] [address] Gastroenterology 09/20/23 Rocky Zepeda DO [address] [place] [address] 948555 Physician Gastroenterology 09/20/23 Philip Dumont MD 6 [place], [place] 8[address] Physician Ophthalmology 09/22/23 Meredith Carrera PA-C 909 [place] [address] Assigned Gastroenterology Provider 11/01/23 Neil Kent MD [address] [address] Dermatology 11/02/23 [place] [address] [address] Neurological Surgery 12/26/23 Aurdey [place] PA-C 500 [place] [address] Physician Submarine Diver Dermatology 02/28/24 Valery Veronica PA-C [address] [place] [address] Physician Submarine Diver Dermatology 04/10/24 documented as of this encounter
--- OUTSIDE RECORDS SUMMARY | 2024-05-27 08:44 | XMS_ITS | Encounter Summary ---
Author Organization [place] Address [address] [place] [address] Care Team Providers Care Assayer Name Role Phone Diana Desir Stanislav [facility] Unavailable [phone] Rain Galaviz PA-C Unavailable Tavia Wyatt MD Unavailable Unavailable Erica Farrell PRODUCTION MECHANIC TIN CANS ELECTRICAL DESIGN TECHNICIAN Unavailable Rich Barrett MD Unavailable Neil Kent MD Unavailable Thang Diana Stanislav [facility] Unavailable [phone] Livan Sharif MD Unavailable Catherine Cm MD Unavailable + Valery Veronica-C Unavailable Brea Quinn PRODUCTION MECHANIC TIN CANS ELECTRICAL DESIGN TECHNICIAN Unavailable Alfonso Renteria MD Unavailable [phone] José Miguel Pritchard PA-C Primary Care Provider Radha Lomeli APRN ELECTRICAL DESIGN TECHNICIAN Unavailable Jelena David OD Unavailable José Miguel Pritchard PA-C Unavailable [phone] Valery Veronica PA-C Unavailable [phone] Rey Tay MD Unavailable Rocky Zepeda DO Unavailable Philip Dumont MD Unavailable [phone] Meredith Carrera PA-C Unavailable Neil Kent MD Unavailable Juan Pablo Emmanuel MD Unavailable Audrey Waite PA-C Unavailable [phone] Valery Veronica PA-C Unavailable Reason for Visit * Reason Comments Physical Encounter Details Date Type Department Care Team (Late st Contact Info) Description 05/08/2024 1:30 PM CDT Office Visit [facility] [address] [place] [phone] Lauren Claudio PA-C [address] [place] [address] José Miguel Pritchard PA-C [address] [place] [address] Routine general medical examination at a health care facility (Primary Dx); Other ventricular tachycardia (H); CYP2C9 intermediate metabolizer (H); Moderate major depression (H); Shortness of breath; Psoriasis; Vaginal discomfort Social History Tobacco Use Types Packs/Day Years [...] exercise at this level? 20 min 05/07/2024 [place] Depression Scale Answer Date Recorded [place] Depression Score 5 01/14/2021 Last EPDS Self [...] in an overnight detention, or couch-surfing.) Yes 05/07/2024 Are you worried [...] PM CDT Legal Sex Female 4:13 AM AUTOMOTIVE BUYER Gender Identity Female 03/02/2021 5:45 PM CDT [...] Mass Index 31.74 05/08/2024 1:10 PM CDT documented in this encounter Patient Instructions * Patient Instructions* José Miguel Pritchard PA-C - 05/08/2024 1:30 PM CDT Patient Education Preventive Care Advice This is general advice given by our system to help you stay healthy. However, your care team may have specific advice just for you. Please talk to your care team about your preventive care needs. Nutrition Eat 5 or more servings of fruits and vegetables each day. Try wheat bread, brown rice and whole grain pasta (instead of white bread, rice, and pasta). Get enough calcium and vitamin D. Check the label on foods and aim for 100% of the DESIGN ENGINEERING MANAGER (recommendeddaily allowance). Lifestyle Exercise at least 150 minutes each week (30 minutes a day, 5 days a week). Do muscle strengthening activities 2 days a week. These help control your weight and prevent disease. No smoking. Wear sunscreen to prevent skin cancer. Have a dental exam and cleaning every 6 months. Yearly exams See your health care team every year to talk about: Any changes in your health. Any medicines your care team has prescribed. Preventive care, family planning, and ways to prevent chronic diseases. Shots (vaccines) HPV shots (up to age 26), if you've never had them before. Hepatitis B shots (up to age 59), if you've never had them before. COVID-19 shot: Get this shot when it's due. Flu shot: Get a flu shot every year. Tetanus shot: Get a tetanus shot every 10 years. Pneumococcal, hepatitis A, and RSV shots: Ask your care team if you need these based on your risk. Shingles shot (for age 50 and up) General health tests Diabetes screening: Starting at age 35, Get screened for diabetes at least every 3 years. If you are younger than age 35, ask your care team if you should be screened for diabetes. Cholesterol test: At age 39, start having a cholesterol test every 5 years, or more often if advised. Bone density scan (DEXA): At age 50, ask your care team if you should have this scan for osteoporosis (brittle bones). Hepatitis C: Get tested at least once in your life. STIs (sexually transmitted infections) Before age 24: Ask your care team if you should be screened for STIs. After age 24: Get screened for STIs if you're at risk. You are at risk for STIs (including HIV) if: You are sexually active with more than one person. You don't use condoms every time. You or a partner was diagnosed with a sexually transmitted infection. If you are at risk for HIV, ask about PrEP medicine to prevent HIV. Get tested for HIV at least once in your life, whether you are at risk for HIV or not. Cancer screening tests Cervical cancer screening: If you have a cervix, begin getting regular cervical cancer screening tests starting at age 21. Breast cancer scan (mammogram): If you've ever had breasts, begin having regular mammograms starting at age 40. This is a scan to check for breast cancer. Colon cancer screening: It is important to start screening for colon cancer at age 45. Have a colonoscopy test every 10 years (or more often if you're at risk) Or, ask your provider about stool tests like a FIT test every year or Cologuard test every 3 years. To learn more about your testing options, visit: . For help making a decision, visit: https://bit.ly/sl14215. Prostate cancer screening test: If you have a prostate, ask your care team if a prostate cancer screening test (PSA) at age 55 is right for you. Lung cancer screening: If you are a current or former smoker ages 50 to 80, ask your care team if ongoing lung cancer screenings are right for you. For informational purposes only. Not to replace the advice of your health care provider. Copyright ?? 2022 [facility]. All rights reserved. Clinically reviewed by the [facility]. FetchBack [id number] - REV 08/03. documented in this encounter Progress Notes * José Miguel Pritchard PA-C - 05/08/2024 1:30 PM CDT Preventive Care Visit [facility] José Miguel Pritchard PA-C, Family Medicine May 08, 2024 Assessment & Plan (Z00.00) Routine general medical examination at a health care facility (primary encounter diagnosis) Stable exam. Routine screening labs, she is not fasting. Follow up in 1 year for annual wellness; sooner as needed for acute concerns. Plan: Iron and iron binding capacity, Ferritin, CBC with platelets, Comprehensive metabolic panel (BMP + Alb, Alk Phos, ALT, AST, Total. Bili, TP), Lipid panel reflex to direct LDL Non-fasting (I47.29) Other ventricular tachycardia (H) Currently on metoprolol. Controlled if taking the medication routinely. (F32.1) Moderate major depression (H) (E88.89) CYP2C9 intermediate metabolizer (H) Mood overall is stable. Has tried other medications and Paxil has been working the best so far although not liking the weight gain side effect. Continues to have anxiety which is not overall managed well. Currently working with therapist and feels this is helping. (R06.02) Shortness of breath Will recheck PFTs as had not had testing done in years. Does have shortness of breath intermittently. Plan: General PFT Lab (Please always keep checked), Pulmonary Function Test (L40.9) Psoriasis Currently having outbreak. Working with Ticket Scheduler, has follow up in the next 2 months. Continueto follow with specialist. (N94.9) Vaginal discomfort Seen by [facility] 1-2 weeks ago. Pap smear done, results pending. With ongoing symptoms and now changes in symptoms will repeat UA and wet prep although negative two weeks ago. Plan: UA Macroscopic with reflex to Microscopic and Culture - Lab Collect, Wet prep - Clinic Collect Review of external notes as documented elsewhere in note Ordering of each unique test Prescription drug management 35 minutes spent by me on the date of the encounter doing chart review, history and exam, documentation and further activities per the note Patient has been advised of split billing requirements and indicates understanding: Yes BMI Estimated body mass index is 31.74 kg/m?? as calculated from the following: Height as of this encounter: 1.676 m (5' 6). Weight as of this encounter: 89.2 kg (196 lb 10.4 oz). Weight management plan: Discussed healthy diet and exercise guidelines Counseling Appropriate preventive services were addressed with this patient via screening, questionnaire, or discussion as appropriate for fall prevention, nutrition, physical activity, Tobacco-use cessation, social engagement, weight loss and cognition. Checklist reviewing preventive services available has been given to the patient. Reviewed patient's diet, addressing concerns and/or questions. She is at risk for lack of exercise and has been provided with information to increase physical activity for the benefit of her well-being. Follow up in 3-6 months for med check; sooner with any acute concerns. Subjective Kim is a 24 year old, presenting for the following: Physical 05/08/2024 1:06 PM Additional Questions Roomed by Rebecca BRITTON -Tuesday morning had an episode where she was having palpitations but had been drinking the night before and also had only a few hours of sleep. Does find that if she does not take her metoprolol every 24 hours she will get more palpitations. -Spasms in the mid/upper back and into the neck. Had started physical therapy and maybe some improvement but no notable improvement. Does feel that massage would help but has not been doing this. -Quit smoking for 4 years, restarted but now stopped most recently a few weeks ago. Doing well off vaping and cigarettes. -Continues to have anxiety. Paroxetine helps with depression symptoms and somewhat with anxiety. Currently working with therapist as well. -Has psoriasis and was given referral from another provider to discuss is possible psoriatic arthritis causing multiple joint pains. -Had pap smear through [facility] 1-2 weeks ago. Health Care Directive Patient does not have a Health Care Directive: Discussed advance care planning with patient; however, patient declined at this time. 05/07/2024 General Health How would you rate your overall physical health? (!) FAIR Feel stress (tense, anxious, or unable to sleep) To some extent (!) STRESS CONCERN 05/07/2024 Nutrition Three or more servings of calcium each day? Yes Diet: Other If other, please elaborate: Try to stay away from dairy! How many servings of fruit and vegetables per day? (!) 2-3 How many sweetened beverages each day? 0-1 05/07/2024 Exercise Days per week of moderate/strenous exercise 2 days Average minutes spent exercising at this level 20 min (!) EXERCISE CONCERN 05/07/2024 Social Factors Frequency of gathering with friends or relatives Once a week Worry food won't last until get money to buy more No Food not last or not have enough money for food? No Do you have housing? (Housing is defined as stable permanent housing and does not include staying ouside in a car, in a tent, in an abandoned building, in an overnight detention, or couch-surfing.) Yes Are you worried about losing your housing? No Lack of transportation? No Unable to get utilities (heat,electricity)? No 05/07/2024 Dental Dentist two times every year? Yes 05/07/2024 TB Screening Were you born outside of the [place]? No Today's PHQ-9 Score: 02/07/2024 9:33 AM PHQ-9 SCORE PHQ-9 Total Score MyChart 3 (Minimal depression) PHQ-9 Total Score 3 05/07/2024 Substance Use Alcohol more than 3/day or more than 7/wk No Do you use any other substances recreationally? No Social History Tobacco Use Smoking status: Former Current packs/day: 0.00 Average packs/day: 1 pack/day for 4.0 years (4.0 ttl pk-yrs) Types: Cigarettes, Other Quit date: 12/07/2019 Years since quittin.4 Passive exposure: Past Smokeless tobacco: Never Tobacco comments: 1 year 4 months tobacco free Vaping Use Vaping status: Former Substances: Nicotine Devices: Disposable Substance Use Topics Alcohol use: Not Currently Comment: social Drug use: No 05/07/2024 STI Screening New sexual partner(s) since last STI/HIV test? No History of abnormal Pap smear: No - age 21-29 PAP every 3 years recommended 09/22/2021 3:14 PM PAP / HPV PAP Negative for Intraepithelial Lesion or Malignancy (NILM) 05/07/2024 Contraception/Family Planning Questions about contraception or family planning No Reviewed and updated as needed this visit by Provider Tobacco Allergies Meds Problems Med Hx Surg Hx Fam Hx Past Medical History: Diagnosis Date Anxiety Chronic kidney disease stones, history of infections Depressive disorder Gastroesophageal reflux disease Psoriasis Seizure (H) 05/02/2019 no seizure since approx 2018 SVT (supraventricular tachycardia) (H) Past Surgical History: Procedure Laterality Date EP ABLATION SVT N/A 08/28/2021 Procedure: EP Ablation SVT; Surgeon: Galo Burrell MD; Location: [facility] ESOPHAGOSCOPY, GASTROSCOPY, DUODENOSCOPY (EGD), COMBINED N/A 06/26/2021 Procedure: ESOPHAGOGASTRODUODENOSCOPY (EGD) (fv); Surgeon: Rey Sheppard MD; Location: [facility] ESOPHAGOSCOPY, GASTROSCOPY, DUODENOSCOPY (EGD), COMBINED N/A 09/12/2023 Procedure: Esophagoscopy, gastroscopy, duodenoscopy (EGD), combined; Surgeon: Rey Tay MD; Location: GI GENITOURINARY SURGERY kidney BP Readings from Last 3 Encounters: 05/08/24 114/68 04/09/24 106/69 04/07/24 129/86 Wt Readings from Last 3 Encounters: 05/08/24 89.2 kg (196 lb 10.4 oz) 04/07/24 86.2 kg (190 lb) 03/30/24 88.5 kg (195 lb) 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) Paroxysmal supraventricular tachycardia (H) SVT (supraventricular tachycardia) (H) Other ventricular tachycardia (H) Past Surgical History: Procedure Laterality Date EP ABLATION SVT N/A 08/28/2021 Procedure: EP Ablation SVT; Surgeon: Galo Burrell MD; Location: [facility] ESOPHAGOSCOPY, GASTROSCOPY, DUODENOSCOPY (EGD), COMBINED N/A 06/26/2021 Procedure: ESOPHAGOGASTRODUODENOSCOPY (EGD) (fv); Surgeon: Rey Sheppard MD; Location: GI ESOPHAGOSCOPY, GASTROSCOPY, DUODENOSCOPY (EGD), COMBINED N/A 09/12/2023 Procedure: Esophagoscopy, gastroscopy, duodenoscopy (EGD), combined; Surgeon: Rey Tay MD; Location: GI GENITOURINARY SURGERY kidney Social History Tobacco Use Smoking status: Former Current packs/day: 0.00 Average packs/day: 1 pack/day for 4.0 years (4.0 ttl pk-yrs) Types: Cigarettes, Other Quit date: 12/07/2019 Years since quittin.4 Passive exposure: Past Smokeless tobacco: Never Tobacco comments: 1 year 4 months tobacco free Substance Use Topics Alcohol use: Not Currently Comment: social Family History Problem Relation Age of Onset Heart Disease Maternal Grandfather Coronary Artery Disease Maternal Grandfather Cerebrovascular Disease Maternal Grandfather Brain Tumor Sister Depression Sister Anxiety Disorder Sister Hypertension Mother Hyperlipidemia Mother Asthma Mother Cold Indused Hypertension Father Osteoporosis Maternal Grandmother Breast Cancer Paternal Grandmother Other Cancer Paternal Grandmother Bone Cancer Coronary Artery Disease Other Coronary Artery Disease Other Cerebrovascular Disease Other Coronary Artery Disease Other Coronary Artery Disease Other Breast Cancer Other Hypertension Sister Depression Sister Anxiety Disorder Sister Macular Degeneration No family hx of [...] (20 mcg/day) IUD by Intrauterine route once LORazepam (ATIVAN) 0.5 MG tablet Take 1 [...] capsule 3 PARoxetine (PAXIL) 40 MG tablet TAKE ONE TABLET BY MOUTH EVERY MORNING 90 tablet 1 Probiotic Product (PROBIOTIC BLEND [...] until healed then stop 80 g 2 Allergies Allergen Reactions Vancomycin Review of Systems Constitutional, HEENT, cardiovascular, pulmonary, GI, , musculoskeletal, neuro, skin, endocrine and psych systems are negative, except as otherwise noted. Objective Exam BP 114/68 (BP Location: Right arm, Patient Position: Sitting, Cuff Size: Adult Regular) Pulse 69 Temp 98.3 ??F (36.8 ??C) (Oral) Resp 18 Ht 1.676 m (5' 6) Wt 89.2 kg (196 lb 10.4 oz) LMP(LMP Unknown) SpO2 98% BMI 31.74 kg/m?? Estimated body mass index is 31.74 kg/m?? as calculated from the following: Height as of this encounter: 1.676 m (5' 6). Weight as of this encounter: 89.2 kg (196 lb 10.4 oz). Physical Exam GENERAL: alert and no distress EYES: Eyes grossly normal to inspection, PERRL, conjunctivae and sclerae normal HENT: ear canals and TM's normal, nose and mouth without ulcers or lesions NECK: no adenopathy, no asymmetry, masses, or scars RESP: lungs clear to auscultation - no rales, rhonchi or wheezes CV: regular rate and rhythm, normal S1 S2, no S3 or S4, no murmur, click or rub ABDOMEN: soft, nontender, no masses and bowel sounds normal MS: no gross musculoskeletal defects noted SKIN: no suspicious lesions or rashes NEURO: Normal strength and tone, mentation intact and speech normal PSYCH: mentation appears normal, affect normal/bright Signed Electronically by: José Miguel Pritchard PA-C documented in this encounter Miscellaneous Notes * Addendum Note - José Miguel Pritchard PA-C - 05/08/2024 1:30 PM CDTAddended by: JOSÉ MIGUEL PRITCHARD on: 05/08/2024 03:26 PM Modules accepted: Orders documented in this encounter Plan of Treatment Upcoming Encounters Date Type Department Care Team (Late st Contact Info) Description 05/31/2024 8:40 AM AUTOMOTIVE BUYER Therapy Visit [facility] [address] [place] [address] Ingris Thompson, PT [facility] [address] [place] [address] 05/31/2024 3:30 PM AUTOMOTIVE BUYER Office Visit [facility] [address] [place] [phone] Audrey Díaz PA-C Khan, Waseem, MD [address] [place] [address] 06/04/2024 3:30 PM AUTOMOTIVE BUYER Office Visit [facility] [address] [facility] [address] [place] [phone] Jelena David, [address] [address] 06/11/2024 10:30 AM AUTOMOTIVE BUYER Appointment [facility] Res[facility] Therapy [address] [place] [phone] Spec, Nurse Only Med 06/18/2024 2:50 PM AUTOMOTIVE BUYER Therapy Visit [facility] [address] [place] [phone] Ingris Thompson, PT [facility] [address] [place] [address] [address] [place] [address] 06/21/2024 2:00 PM AUTOMOTIVE BUYER Office Visit [facility] [place] [address] [place] [address], [address] [place] [phone] [place] [address] [place] [address] Johnny Penn MD [address] [place] [address] 06/25/2024 8:30 AM AUTOMOTIVE BUYER Office Visit [facility] [address] [place] [address] Valery Veronica PA-C [address] [place] [address] 11/28/2024 7:45 AM CDT Virtual Visit [facility] [address] [place] [phone] Meredith Carrera PA-C [address] [place] [phone] Scheduled Orders Name Type Priority Associated Diagnoses Orde r Schedule General PFT Lab (Please always keep checked) PFT Routine Shortness of breath Expected: 11/06/2024 (Approximate), Expires: 05/08/2025 Pulmonary Function Test PFT Routine Shortness of breath Expected: 05/09/2024 (Approximate), Expires: 05/08/2025 documented as of this encounter Procedures Procedure [...] medical examination at a health care facility UA MACROSCOPIC WITH REFLEX TO MICRO AND CULTURE Routine 05/08/2024 2:40 PM CDT Vaginal discomfort WET PREPARATION Routine 05/08/2024 2:40 PM CDT Vaginal discomfort documented in this encounter Results * (ABNORMAL) Lipid panel reflex to [...] mg/dL Very High: >= 220 mg/dL us José Miguel Pritchard PA-C LAB - BLOOD ORDERABLES Final R esult [facility] [address] [facility], [address] [place] [address], [facility] * Comprehensive metabolic panel (BMP + Alb, [...] PM CDT 05/08/2024 2:49 PM CDT us José Miguel Pritchard PA-C LAB - BLOOD ORDERABLES Final R esult [facility] [address] [facility], [address] [phone] * (ABNORMAL) CBC with platelets (05/08/2024 2:49 PM CDT) Pathologist [facility] WBC Count 7.8 4.0 - 11.0 10e3/uL [...] PM CDT 05/08/2024 2:49 PM CDT us José Miguel Pritchard PA-C LAB - BLOOD ORDERABLES Final R esult [facility] [address] [facility] (no room number, 1st floor of clinic) [place] [address], [facility] * Ferritin (05/08/2024 2:49 PM CDT) Ferritin 23 6 - 175 ng/mL 05/08/2024 10:44 PM CDT [facility] Blood BLOOD SPECIMEN / Unknown Venipuncture / Unknown 05/08/2024 2:49 PM CDT 05/08/2024 2:49 PM CDT us José Miguel Pritchard PA-C LAB - BLOOD ORDERABLES Final R esult [facility] [address] [facility], [address] [place] [address] * Iron and iron binding capacity (05/08/2024 [...] 2:49 PM CDT 05/08/2024 2:49 PM CDT Result Davida Pritchard PA-C LAB - BLOOD ORDERABLES Final R esult [facility] [address] [facility] [address], [address] [place] [address], [facility] * (ABNORMAL) Wet prep - Clinic Collect (05/08/2024 2:40 PM CDT) Trichomonas Absent Absent REINA 05/08/2024 3:01 PM CDT CR LABORATORY Yeast Absent Absent [facility] 05/08/2024 3:01 PM CDT [facility] LAB[facility] Clue Cells Present(A) Absent [facility] 05/08/2024 3:01 PM CDT CR LAB[facility] WBCs/high power field 1+(A) None [facility] 05/08/2024 3:01 PM CDT [facility] Swab VAGINAL STRUCTURE / Unknown Non-blood Collection / Unknown 05/08/2024 2:40 PM CDT 05/08/2024 3:00 PM CDT us José Miguel Pritchard PA-C LAB - MICRO GENERAL ORDERABLES Final Result [facility] [place] [facility] [address] [facility] Lab (no room number, 1st floor of clinic) [place] [address], [facility] * UA Macroscopic with reflex to Microscopic and Culture - Lab Collect (05/08/2024 2:40 PM CDT) Color Urine Yellow Colorless, Straw, Light Yellow, Yellow 05/08/2024 2:51 PM CDT [facility] Appearance Urine Clear Clear 05/08/20 24 2:51 PM CDT [facility] Glucose Urine Negative Negative mg/dL 05/08/2024 2:51 PM CDT [facility] Bilirubin Urine Negative Negative 2:51 PM CDT [facility] Ketones Urine Negative Negative mg/dL 05/08/2024 2:51 PM CDT CR LAB[facility] Specific [place] Urine 1.010 1.003 - 1.035 05/08/2024 2:51 [...] 05/08/2024 2:51 PM CDT Microscopic not indicated us José Miguel Pritchard PA-C LAB - URINE ORDERABLES Final R esult [facility] [place] [facility] [address] [facility] (no room number, 1st floor of clinic) [place] [address], [facility] documented in this encounter Visit Diagnoses Diagnosis Routine general medical examination at a health care facility- Primary Other ventricular tachycardia (H) 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) Major depressive disorder, single episode, moderate Shortness of breath Psoriasis Other psoriasis Vaginal discomfort Unspecified symptom associated with female genital organs documented in this encounter Additional Health Concerns Assessment Noted Time PHQ-9 Depression Total Score: 3 02/07/20 24 9:33 AM CDT documented as of this encounter Care Teams Assayer Relationship Specialty Start Date End Date José Miguel Pritchard PA-C [address] [place] [address] PCP - General Family Medicine 05/04/23 Diana Desir, [facility] [address] [place] [address] Pharmacist Pharmacist 04/17/21 Rain Galaviz PA-C [address] [place] [address] [place] [address] Physician Manager Package Dermatology 04/28/21 Tavia Wyatt MD [address] [facility] [address] [place] [address] Dermatology 07/14/21 Erica Farrell APRN ELECTRICAL DESIGN TECHNICIAN [address] [place] [address] Nurse Practitioner Cardiovascular Disease 09/09/21 Rich Barrett MD [address] [facility] [address] [place] [address] Physician Ophthalmology 01/21/22 Neil Kent MD 500 [place], [place] [address] Dermatology 02/24/22 [facility] 3033 [place], [place] 159526 Assigned MTM Pharmacist 04/07/22 Livan Sharif MD [address] [place] 267[address] Cardiovascular Disease 05/14/22 Catherine Cm MD [address] [facility] [address] [place] [address] Cardiovascular Disease 07/21/22 Valery Veronica, PA-C [address] [place] [address] 660745 Physician Manager Package Dermatology 07/21/22 Brea Quinn APRN ELECTRICAL DESIGN TECHNICIAN 500 [place] [address] Nurse Practitioner Dermatology 09/21/22 Alfonso Renteria MD [address] [address] 200 [place] [address] Assigned Neuroscience Provider 04/02/23 Radha Lomeli APRN ELECTRICAL DESIGN TECHNICIAN [address] [facility] [address] [place] [address] Assigned Heart and Vascular Provider 05/28/23 Jelena David OD [address] [place] [address] Ophthalmology 06/15/23 José Miguel Pritchard PA-C [address] [place] [address] Assigned PCP 07/16/23 Valery Veronica PA-C [address] [place] [address] Physician Manager Package Dermatology 09/19/23 Rey Tay MD 9 [place] [address] Gastroenterology 09/20/23 Rocky Zepeda DO [address] [place] [address] 123595 Physician Gastroenterology 09/20/23 Philip Dumont MD [address] [place] [address] 355275 Physician Ophthalmology 09/22/23 Meredith Carrera PA-C [address] [place], [place] 021875 Assigned Gastroenterology Provider 11/01/23 Neil Kent MD [address] [address] Dermatology 11/02/23 [place] [address] 965687 Neurological Surgery 12/26/23 Audrey Wa[place] PA-C [address] [place], [place] 00[address]375 Physician Manager Package Dermatology 02/28/24 Valery Veronica PA-C [address] [place] [address] Physician Manager Package Dermatology 04/10/24 documented as of this encounter
--- OUTSIDE RECORDS SUMMARY | 2024-05-27 08:44 | XMS_ITS | Encounter Summary ---
Author Organization [place] Address [address] [place] [address] Care Team Providers Care Character Artist Name Role Phone Diana Desir Stanislav [facility] Unavailable Rain Galaviz PA-C Unavailable [phone] Tavia Wyatt MD Unavailable Unavailable Erica Farrell PLANT SAFETY LEADER PHOTOVOLTAIC TECHNICIAN Unavailable Rich Barrett MD Unavailable Neil Kent MD Unavailable Thang Diana Stanislav [facility] Unavailable [phone] Livan Sharif MD Unavailable Catherine Cm MD Unavailable + Valery Veronica-C Unavailable Brea Quinn PLANT SAFETY LEADER PHOTOVOLTAIC TECHNICIAN Unavailable Alfonso Renteria MD Unavailable [phone] Esha Grimm PA-C Primary Care Provider Radha Lomeli APRN PHOTOVOLTAIC TECHNICIAN Unavailable Jelena David OD Unavailable Esha Grimm PA-C Unavailable [phone] Valrey VeronicaC Unavailable [phone] Rey Tay MD Unavailable Rocky Zepeda DO Unavailable Philip Dumont MD Unavailable [phone] Meredith Carrera PA-C Unavailable [phone] Neil Kent MD Unavailable Juan Pablo Emmanuel MD Unavailable [phone] Audrey Waite PA-C Unavailable [phone] Valery Veronica PA-C Unavailable [phone] Encounter Details Date Type Department Care Team (Latest Contact Info) Description 05/07/2024 Travel Social History Tobacco Use Types Packs/Day [...] week 05/07/2024 How often do you attend [facility] or episcopal services? 1 to 4 times [...] exercise at this level? 20 min 05/07/2024 [place]osh[place] Depression Scale Answer Date Recorded [place]osh[place] Depression Score 5 01/14/2021 Last EPDS Self [...] in an overnight fci, or couch-surfing.) Yes 05/07/2024 Are you worried [...] PM CDT Legal Sex Female 4:13 AM ASSISTANT GOLF PROFESSIONAL Gender Identity Female 03/02/2021 5:45 PM CDT Sexual Orientation Straight 02/28/2020 12 :51 AM CDT documented as of this encounter Plan of Treatment Upcoming Encounters Date Type Department Care Team (Late st Contact Info) Description 05/31/2024 8:40 AM ASSISTANT GOLF PROFESSIONAL Therapy Visit [facility] Rehabilitation Services [address] [place] [phone] Ingris Thompson, PT [facility] [address] [place] [address] 05/31/2024 3:30 PM ASSISTANT GOLF PROFESSIONAL Office Visit [facility] Specialty [place] [address] [place] [phone] Audrey Díaz, Herminia Koo MD [address] [place] [address] [id number] 06/04/2024 3:30 PM ASSISTANT GOLF PROFESSIONAL Office [facility] [address] ENMA German [phone] [place] [address] [place] [address] [place] [address] 06/11/2024 10:30 AM ASSISTANT GOLF PROFESSIONAL Appointment [facility] Respiratory Therapy [address] [place] [address] Spec, Nurse Only Med 06/18/2024 2:50 PM ASSISTANT GOLF PROFESSIONAL Therapy Visit [facility] Rehabilitation Services [place] [address] [place] [address] [address] [place] [phone] Ingris Thompson, PT [facility] [address] [facility] 106 [place], [place] 415[address] 06/21/2024 2:00 PM ASSISTANT GOLF PROFESSIONAL Office Visit [facility] Neurology Clinics - [place] [address] [facility], [address] [place] [phone] [place] [address] [place], [place] 8[address] Johnny Penn MD 4501 [place], [place] 9[address] 06/25/2024 8:30 AM ASSISTANT GOLF PROFESSIONAL Office Visit [address] [phone] Valery Veronica PAUcheC [address] [place] [address] 11/28/2024 7:45 AM CDT Virtual Visit [facility] G[facility]ology [facility] [address] 4th [place] [phone] Meredith Carrera PA-C [address] [place] [address] 214485 documented as of this encounter Visit Diagnoses Not on filedocumented in this encounter Additional Health Concerns Assessment Noted Time PHQ-9 Depression Total Score: 3 02/07/20 24 9:33 AM CDT documented as of this encounter Care Teams Character Artist Relationship Specialty Start Date End Date AlfaEsha PA-C [address] [place] [address] PCP - General Family Medicine 05/04/23 Diana Desir, [facility] [address] [place] [address] Pharmacist Pharmacist 04/17/21 Rain Galaviz PA-C [address] [place] [address] DR [address] [place] [address] Physician Certified Master Safecracker Dermatology 04/28/21 Tavia Wyatt MD [address] [place] [address] [place] [address] Dermatology 07/14/21 Erica Farrell APRN [facility] [address] [place] 598045 Nurse Practitioner Cardiovascular Disease 09/09/21 Rich Barrett MD [address] 881735 Physician Ophthalmology 01/21/22 Neil Kent MD 500 [place], [place] 878555 Dermatology 02/24/22 Diana Desir, [facility] [address] [place] [address] Assigned MTM Pharmacist 04/07/22 Livan Sharif MD [address] [place] [address] Cardiovascular Disease 05/14/22 Catherine Cm MD [address] [facility] [address] [place] [address] Cardiovascular Disease 07/21/22 Valery Veronica PA-C [address] [place] [address] 142745 Physician Certified Master Safecracker Dermatology 07/21/22 Brea Quinn APRN PHOTOVOLTAIC TECHNICIAN 500 [place], [place] 408[address] Nurse Practitioner Dermatology 09/21/22 Alfonso Renteria MD 5775 [facility] 200 [place], [place] 608526 Assigned Neuroscience Provider 04/02/23 Radha Lomeli APRN PHOTOVOLTAIC TECHNICIAN [address] [place] [address] Assigned Heart and Vascular Provider 05/28/23 Jelena David OD [address] [facility] [place] [address] Ophthalmology 06/15/23 Esha Grimm PA-C [address] [place] [address] Assigned PCP 07/16/23 Valery Veronica PA-C [address] [place] [address] Physician Certified Master Safecracker Dermatology 09/19/23 Rey Tay MD 909 [place] [address] MD Gastroenterology 09/20/23 Rocky Zepeda DO 500 [place] [address] Physician Gastroenterology 09/20/23 Philip Dumont MD 516 [place] [address] Physician Ophthalmology 09/22/23 Meredith Carrera PA-C 9 [place] [address] Assigned Gastroenterology Provider 11/01/23 Neil Kent MD [address] [place] [address] Dermatology 11/02/23 [place] [address] [address] Neurological Surgery 12/26/23 Audrey Waite PA-C 500 [place] [address] Physician Certified Master Safecracker Dermatology 02/28/24 Valery Veronica PA-C [address] [place] [address] Physician Certified Master Safecracker Dermatology 04/10/24 documented as of this encounter
--- OUTSIDE RECORDS SUMMARY | 2024-05-27 08:44 | XMS_ITS | Encounter Summary ---
Author Organization [place] Address [address] [place] [address] Care Team Providers Care Senior Marketing Analyst Name Role Phone Diana Desir [facility] Unavailable Rain Galaviz PA-C Unavailable Tavia Wyatt MD Unavailable Unavailable Erica Farrell SOLAR ENERGY 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 HELPER FRAME RUNNER Unavailable Rich Barrett MD Unavailable Neil Kent MD Unavailable ThangDiana [facility] Unavailable [phone] Livan Sharif MD Unavailable Catherine Cm MD Unavailable + Valery Veronica PA-C Unavailable [phone] Brea Quinn SOLAR ENERGY 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 HELPER FRAME RUNNER Unavailable Brea Quinn SOLAR ENERGY 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 HELPER FRAME RUNNER Unavailable Jose Francisco Johnson MD Unavailable Alfonso Renteria MD Unavailable + [phone] Esha Grimm PA-C Primary Care Provider [phone] Radha Lomeli SOLAR ENERGY 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 HELPER FRAME RUNNER Unavailable [phone] Jelena David OD Unavailable Esha Grimm PA-C Unavailable [phone] Valery Veronica PA-C Unavailable [phone] Rey Tay MD Unavailable Duane Rocky DO Unavailable Philip Dumont MD Unavailable [phone] Meredith Carrera PA-C Unavailable [phone] Neil Kent MD Unavailable Juan Pablo Emmanuel MD Unavailable [phone] Audrey Waite PA-C Unavailable [phone] Valery Veronica PA-C Unavailable Encounter Details Date Type Department Care Team (Latest Contact Info) Description 2024 Travel Social History Tobacco Use Types Packs/Day [...] 03/28/2024 How often do you attend chur or [...] Answer Date Recorded PHQ-2 Score 1 02/07/2024 [facility] [...] exercise at this level? 30 min 03/28/2024 [place] Depression Scale Answer Date Recorded [place] Depression Score 5 01/14/2021 Last EPDS Self [...] in an overnight correction, or couch-surfing.) Yes 03/28/2024 Are you worried [...] PM CDT Legal Sex Female 4:13 AM BIOSTATISTICS DIRECTOR Gender Identity Female 03/02/2021 5:45 PM CDT Sexual Orientation Straight 02/28/2020 12 :51 AM CDT documented as of this encounter Plan of Treatment Upcoming Encounters Date Type Department Care Team (Late st Contact Info) Description 05/31/2024 8:40 AM BIOSTATISTICS DIRECTOR Therapy Visit [facility] Rehabilitation Services [address] [place] [phone] Ingris Thompson, PT [facility] [address] [place] [address] 106 [place] [address] 05/31/2024 3:30 PM BIOSTATISTICS DIRECTOR Office Visit [facility] Specialty Clinic [address] [phone] Audrey Díaz PA-C Khan, Waseem, MD [address] [place] [address] [phone] 06/04/2024 3:30 PM BIOSTATISTICS DIRECTOR Office Visit [address] [place] [phone] Jelena David, SONJA [address] [place] [address] [place] [address] 06/11/2024 10:30 AM BIOSTATISTICS DIRECTOR Appointment [facility] Respiratory Therapy [address] [place] [phone] Spec, Nurse Only Med 06/18/2024 2:50 PM BIOSTATISTICS DIRECTOR Therapy Visit [facility] Rehabilitation Services [place] [address] [place] [address] [address] [place] [phone] Ingris Thompson, PT [facility] 516 [facility] 106 [place], [place] [address] 06/21/2024 2:00 PM BIOSTATISTICS DIRECTOR Office Visit [facility] Neurology Clinics - [place] [address] [facility], [address] [place] [phone] [place] [address] [place], [place] [phone] Johnny Penn MD 2223 [place], [place] 268895 06/25/2024 8:30 AM BIOSTATISTICS DIRECTOR Office Visit [address] [phone] Valery Veronica, PAUcheC [address] [place] [address] 040075 11/28/2024 7:45 AM CDT Virtual Visit [facility] Gastroenterology Clinic [address] 4th [place] [address] Meredith Carrera PA-C [address] [place] [address] 896735 documented as of this encounter Visit Diagnoses Not on filedocumented in this encounter Additional Health Concerns Assessment Noted Time PHQ-9 Depression Total Score: 3 02/07/20 24 9:33 AM CDT documented as of this encounter Care Teams Senior Marketing Analyst Relationship Specialty Start Date End Date Esha Grimm PA-C [address] [place] [address] PCP - General Family Medicine 05/04/23 Diana Desir, [facility] [place] [address] Pharmacist Pharmacist 04/17/21 Rain Galaviz PA-C [address] [place] [address] [address] [facility] [place] [address] Physician [employer] School Registrar Dermatology 04/28/21 Tavia Wyatt MD [address] [place] [address] [address] [facility] [place] [address] Dermatology 07/14/21 Erica Farrell APRN FRAME RUNNER [address] [phone] [place] [address] Nurse Practitioner Cardiovascular Disease 09/09/21 Rich Barrett MD [address] [address] Physician Ophthalmology 01/21/22 Neil Kent MD [address] [place] [address] 297945 Dermatology 02/24/22 Diana Desir, [facility] [place] [address] Assigned MTM Pharmacist 04/07/22 Livan Sharif MD [address] [facility] [address] [place] [address] Cardiovascular Disease 05/14/22 Catherine Cm MD [address] [facility] [place] 265255 Cardiovascular Disease 07/21/22 Valery Veronica, PA-C [address] [place] [address] 139815 Physician Elementary School Registrar Dermatology 07/21/22 Brea Quinn APRN FRAME RUNNER [address] [place] [address] 643145 Nurse Practitioner Dermatology 09/21/22 Brea Quinn APRN FRAME RUNNER 64[address] [place], [place] 853342 Assigned Surgical Provider 10/09/22 05/01/24 [place] [address] [address] [address] Assigned Musculoskeletal Provider 10/09/22 05/01/24 Alfonso Renteria MD [address] [facility] 200 [place], [place] 22506416 Assigned Neuroscience Provider 04/02/23 Radha Lomeli APRN FRAME RUNNER [address] [place] [address] Assigned Heart and Vascular Provider 05/28/23 [place] David [place] [address] [facility] [place] [address] MD Ophthalmology 06/15/23 Esha Grimm PA-C [address] [place] [phone] Assigned PCP 07/16/23 Valery Veronica PA-C [address] [place] [address] 909225 Physician Elementary School Registrar Dermatology 09/19/23 Rey Tay MD [address] [place] [address] 460275 MD Gastroenterology 09/20/23 Rocky Zepeda DO [address] [place] [address] 860335 Physician Gastroenterology 09/20/23 Philip Dumont MD [address] [place] [address] 006385 Physician Ophthalmology 09/22/23 Meredith Carrera PA-C [address] [place] [address] 647445 Assigned Gastroenterology Provider 11/01/23 Neil Kent MD [address] [address] Dermatology 11/02/23 [place] [address] [place] [address] Neurological Surgery 12/26/23 Audrey Waite PA-C 500 [place] [address] Physician Elementary School Registrar Dermatology 02/28/24 Valery Veronica PA-C [address] [place] [address] Physician Elementary School Registrar Dermatology 04/10/24 documented as of this encounter
--- OUTSIDE RECORDS SUMMARY | 2024-05-27 08:44 | XMS_ITS | Encounter Summary ---
Author Organization [facility] Address [address] [place] [address] Care Team Providers Care Conventions Assistant Name Role Phone Diana Desir [facility] Unavailable Rain Galaviz PA-C Unavailable Tavia Wyatt MD Unavailable Unavailable Erica Farrell BONE DRIER OPERATOR QUARRYING SPECIALIST Unavailable Rich Barrett MD Unavailable Neil Kent MD Unavailable ThangDiana [facility] Unavailable [phone] Livan Sharif MD Unavailable Catherine Cm MD Unavailable + Valery Veronica PA-C Unavailable [phone] Brea Quinn BONE DRIER OPERATOR QUARRYING SPECIALIST Unavailable Brea Quinn BONE DRIER OPERATOR QUARRYING SPECIALIST Unavailable Jose Francisco Johnson MD Unavailable Alfonso Renteria MD Unavailable + [phone] Esha Grimm PA-C Primary Care Provider Radha Lomeli BONE DRIER OPERATOR QUARRYING SPECIALIST Unavailable [phone] Jelena David OD Unavailable Esha Grimm PA-C Unavailable Valery Veronica PA-C Unavailable Rey Tay MD Unavailable Rocky Zepeda DO Unavailable Philip Dumont MD Unavailable [phone] Meredith Carrera PA-C Unavailable Neil Kent MD Unavailable Juan Pablo Emmanuel MD Unavailable Audrey Waite PA-C Unavailable [phone] Valery Veronica PA-C Unavailable Encounter Details Date Type Department Care Team (Late st Contact Info) Description 2024 10:00 AM CDT Lab [facility] Laboratory [address] [place] [address] Screen for STD (sexually transmitted disease) Social [...] Recorded PHQ-2 Score 1 02/07/2024 [facility] of Occupat [...] exercise at this level? 30 min 03/28/2024 [place] Depression Scale Answer Date Recorded [place] Depression Score 5 01/14/2021 Last EPDS Self [...] in an overnight alf, or couch-surfing.) Yes 03/28/2024 Are you worried [...] PM CDT Legal Sex Female 4:13 AM RESEARCH ASSOCIATE MOLECULAR BIOLOGY Gender Identity Female 03/02/2021 5:45 PM CDT Sexual Orientation Straight 02/28/2020 12 :51 AM CDT documented as of this encounter Plan of Treatment Upcoming Encounters Date Type Department Care Team (Late st Contact Info) Description 05/31/2024 8:40 AM RESEARCH ASSOCIATE MOLECULAR BIOLOGY Therapy Visit [facility] Rehabilitation Services [address] [place] [address] Ingris Thompson, PT [facility] RE[facility]AB [address] [place] [address] 05/31/2024 3:30 PM RESEARCH ASSOCIATE MOLECULAR BIOLOGY Office Visit [facility] [address] [phone] Audrey Díaz PA-C Khan, Waseem, MD [address] [place] [address] [id number] 06/04/2024 3:30 PM RESEARCH ASSOCIATE MOLECULAR BIOLOGY Office Visit [address] [place] [address] Jelena David, OD [address]305 [facility] [place] [address] 06/11/2024 10:30 AM RESEARCH ASSOCIATE MOLECULAR BIOLOGY Appointment [facility] Respiratory Therapy [address] [place] [phone] Spec, Nurse Only Med 06/18/2024 2:50 PM RESEARCH ASSOCIATE MOLECULAR BIOLOGY Therapy Visit [facility] Rehabilitation Services [place] [address] [facility] [address] [place] [address] Ingris Thompson, PT [facility] RE[facility]AB 6 [facility] 106 [place], [place] [address] 06/21/2024 2:00 PM RESEARCH ASSOCIATE MOLECULAR BIOLOGY Office Visit [facility]rology [facility]ics - [place] [address] [place] [address], [address] [place] [address] [place] [address] [place] [address] Johnny Penn MD 8577 [place] [address] 06/25/2024 8:30 AM RESEARCH ASSOCIATE MOLECULAR BIOLOGY Office Visit [address] [address] Valery Veronica, PA-C [address] [place] [address]60[address] 11/28/2024 7:45 AM CDT Virtual Visit [facility] Gastroenterology Clinic [address] 4th [place] [phone] Meredith Carrera, PA-C [address] [place] [address] 328195 documented as of this encounter Procedures Procedure Name Priority Date/Time Associated Diagnosis Comments HIV ANTIGEN ANTIBODY COMBO Routine 2024 10:11 AM CDT Screen for STD (sexually transmitted disease) TREPONEMA ABS W REFLEX TO RPR AND TITER Routine 2024 10:11 AM CDT Screen for STD (sexually transmitted disease) URINALYSIS MACROSCOPIC Routine 2024 10:11 AM CDT Screen for STD (sexually transmitted disease) documented in this encounter Results * HIV Antigen Antibody Combo (2024 10:11 [...] BLOOD ORDERABLES Final R esult U LABORATORY [facility] [place] Core Lab 500 [facility], Room 3-580 [place] [address], [facility] * Treponema Abs w Reflex to RPR and Titer (2024 10:11 AM CDT) Treponema Antibody Total Nonreactive Nonreactive 2024 8:35 PM CDT SPECIALTY CORE/PROT/EN DO Blood BLOOD SPECIMEN / Unknown Venipuncture / Unknown 2024 10:11 AM CDT 2024 10:11 AM CDT Esha Grimm PA-C LAB - BLOOD ORDERABLES Final R esult UM SPECIALTY CORE/PROT/ENDO Specialty Core/Prot/Endo 500 [facility] [address] Building, Room [address] * Urinalysis Macroscopic (2024 10:11 AM [...] 2024 10:36 AM CDT LV LABORATORY Specific [place] Urine >=1.030 1.003 - 1.035 2024 10:36 [...] LAB - URINE ORDERABLES Final R esult LV LABORATORY [facility] Lab [address] [facility] Lab (no room number, 1st floor of clinic) [place] [address], [facility] documented in this encounter Visit Diagnoses Diagnosis Screen for STD (sexually transmitted disease) Screening examination for venereal disease documented in this encounter Additional Health Concerns Assessment Noted Time PHQ-9 Depression Total Score: 3 02/07/20 24 9:33 AM CDT documented as of this encounter Care Teams Conventions Assistant Relationship Specialty Start Date End Date Esha Grimm PA-C [address] [place] [address] PCP - General Family Medicine 05/04/23 Diana Desir, [facility] [address] [place], [place] 348586 Pharmacist Pharmacist 04/17/21 Rain Galaviz PA-C [address] [place] [address] [address] [place] [address] Physician Therapeutic Recreation Director Dermatology 04/28/21 Tavia Wyatt MD [address] [place] [address] [address] [place] [address] Dermatology 07/14/21 Erica Farrell APRN QUARRYING SPECIALIST 6405 [facility] [address] [place] [address] Nurse Practitioner Cardiovascular Disease 09/09/21 Rich Barrett MD 516 [facility] 9A [place] [address] Physician Ophthalmology 01/21/22 Neil Kent MD 500 [place] [address] Dermatology 02/24/22 Diana Desir, [facility] 3033 [place] [address] Assigned [place] Pharmacist 04/07/22 Livan Sharif MD [address] 567[address] Cardiovascular Disease 05/14/22 Catherine Cm MD [address] [address] Cardiovascular Disease 07/21/22 Valery Veronica, PA-C 909 [place] [address] Physician Therapeutic Recreation Director Dermatology 07/21/22 Brea Quinn APRN QUARRYING SPECIALIST 500 [place] [address] Nurse Practitioner Dermatology 09/21/22 Brea Quinn APRN QUARRYING SPECIALIST [address] [place] [address] Assigned Surgical Provider 10/09/22 05/01/24 [place] [address] [address] Assigned Musculoskeletal Provider 10/09/22 05/01/24 Alfonso Renteria MD 5775 [facility] DAN[address] 200 [place] [address] Assigned Neuroscience Provider 04/02/23 Radha Lomeli APRN QUARRYING SPECIALIST [address] [place] [address] Assigned Heart and Vascular Provider 05/28/23 Jelena David OD 3[address] [facility] [place] [address] MD Ophthalmology 06/15/23 Esha Grimm PA-C [address] [place] [phone] Assigned PCP 07/16/23 Valery Veronica PA-C [address] [place] [address] Physician Therapeutic Recreation Director Dermatology 09/19/23 Rey Tay MD [address] [place] [address] Gastroenterology 09/20/23 Rocky Zepeda DO [address] [place] [address] 586205 Physician Gastroenterology 09/20/23 Philip Dumont MD [address] [place] [address] 189055 Physician Ophthalmology 09/22/23 Meredith Carrera PA-C [address] [place] [address] 115465 Assigned Gastroenterology Provider 11/01/23 Neil Kent MD [address] [address] Dermatology 11/02/23 [place] [address] 688127 Neurological Surgery 12/26/23 Audrey Waite PA-C 500 [place] [address] Physician Therapeutic Recreation Director Dermatology 02/28/24 Valery Veronica PA-C [address] [place] [address] Physician Therapeutic Recreation Director Dermatology 04/10/24 documented as of this encounter
--- OUTSIDE RECORDS SUMMARY | 2024-05-27 08:44 | XMS_ITS | Encounter Summary ---
Author Organization [facility] Address [address] [place] [address] Care Team Providers Care Biophysics Scientist Name Role Phone Diana Desir [facility] Unavailable Rain Galaviz PA-C Unavailable Tavia Wyatt MD Unavailable Unavailable Erica Farrell RADIAL SAW OPERATOR WOOD PROCESSING WORKER Unavailable Rich Barrett MD Unavailable Neil Kent MD Unavailable ThangDiana [facility] Unavailable [phone] Livan Sharif MD Unavailable Catherine Cm MD Unavailable + Valery Veronica PA-C Unavailable [phone] Brea Quinn RADIAL SAW OPERATOR WOOD PROCESSING WORKER Unavailable Brea Quinn RADIAL SAW OPERATOR WOOD PROCESSING WORKER Unavailable Jose Francisco Johnson MD Unavailable Alfonso Renteria MD Unavailable + [phone] Esha Grimm PA-C Primary Care Provider Radha Lomeli RADIAL SAW OPERATOR WOOD PROCESSING WORKER Unavailable [phone] Jelena David OD Unavailable Esha Grimm PA-C Unavailable [phone] Valery Veronica PA-C Unavailable Rey Tay MD Unavailable Rocky Zepeda DO Unavailable Philip Dumont MD Unavailable Meredith Carrera PA-C Unavailable Neil Kent MD Unavailable Juan Pablo Emmanuel MD Unavailable Audrey Waite PA-C Unavailable Valery Veronica PA-C Unavailable [phone] Encounter Details Date Type Department Care Team (Late st Contact Info) Description 04/24/2024 [facility] Medical Advice [facility] [address] [facility] [address] [place] [address] Radha Lomeli APRN WOOD PROCESSING WORKER [address] [place], [place] [address] Social History Tobacco Use Types Packs/Day Years [...] exercise at this level? 30 min 03/28/2024 [place] Depression Scale Answer Date Recorded [place] Depression Score 5 01/14/2021 Last EPDS Self [...] in an overnight mcfp, or couch-surfing.) Yes 03/28/2024 Are you worried [...] PM CDT Legal Sex Female 4:13 AM LENO SEWER Gender Identity Female 03/02/2021 5:45 PM CDT Sexual Orientation Straight 02/28/2020 12 :51 AM CDT documented as of this encounter Miscellaneous Notes * Telephone Encounter - Marija Bailey RN - 05/01/2024 9:38 AM CDT December's result note from patient's 14-day event monitor: Preliminary Heart monitor results reviewed Showed normal sinus rhythm No concerning arrhythmias GERRI Pelayo Updated patient via [employer]ine[employer]. documented in this encounter Plan of Treatment Upcoming Encounters Date Type Department Care Team (Late st Contact Info) Description 05/31/2024 8:40 AM LENO SEWER Therapy Visit [facility] [address] [place] [address] Ingris Thompson, PT [facility] RE[facility] 516 [facility] 106 [place], [place] [address] 05/31/2024 3:30 PM LENO SEWER Office Visit [facility] [place] 1875 [place] [address] Audrey Díaz, Herminia Koo MD 1875 [place] [address] 06/04/2024 3:30 PM LENO SEWER Office Visit [facility] [address] [facility] [address] [place] [address] Jelena David, [address] [facility] [place] [address] 06/11/2024 10:30 AM LENO SEWER Appointment [facility] Respiratory Therapy [address] [place] [phone] Spec, Nurse Only Med 06/18/2024 2:50 PM LENO SEWER Therapy Visit [facility] [address] [place] [phone] Ingris Thompson, PT [facility] [address] [place] [address] 106 [place], [place] 9[address] 06/21/2024 2:00 PM LENO SEWER Office Visit [facility] [place] [address] [place] [address], [address] [place] [address] [place] [address] [place] [address] Johnny Penn MD 6854 [facility] [place] [address] 06/25/2024 8:30 AM LENO SEWER Office Visit [facility] Gloria Alvarenga 830 [place] [address] Valery Veronica PAUcheC [address] [place] [address] 11/28/2024 7:45 AM CDT Virtual Visit [facility] [address] 4th [place] [address] Meredith Carrera PA-C [address] [place] [address] documented as of this encounter Visit Diagnoses Not on filedocumented in this encounter Additional Health Concerns Assessment Noted Time PHQ-9 Depression Total Score: 3 02/07/20 24 9:33 AM CDT documented as of this encounter Care Teams Biophysics Scientist Relationship Specialty Start Date End Date Esha Grimm PA-C [address] [place] [address] PCP - General Family Medicine 05/04/23 Diana Desir, [facility] 3033 [place] [address] Pharmacist Pharmacist 04/17/21 Rain Galaviz PA-C [address] [place] [address] [address] [facility] [place] [address] Physician Director Of Marketing Communications Dermatology 04/28/21 Tavia Wyatt MD [address] [place] [address] DR [facility] [facility] [place] [address] Dermatology 07/14/21 Erica Farrell APRN WOOD PROCESSING WORKER 6405 [facility] [address] [place] [address] Nurse Practitioner Cardiovascular Disease 09/09/21 Rich Barrett MD 516 [facility] 9A [place], [place] [address] Physician Ophthalmology 01/21/22 Neil Kent MD [address] [place], [place] [address] Dermatology 02/24/22 Diana Desir, [facility] 3033 [place], [place] 051556 Assigned MTM Pharmacist 04/07/22 Livan Sharif MD [address] [facility] [address] [place], [place] 428[address] Cardiovascular Disease 05/14/22 Catherine Cm MD [address] 677385 Cardiovascular Disease 07/21/22 Valery Veronica, PA-C 909 [place], [place] 806285 Physician Director Of Marketing Communications Dermatology 07/21/22 Brea Quinn APRN WOOD PROCESSING WORKER 500 [place], [place] [address] Nurse Practitioner Dermatology 09/21/22 Brea Quinn APRN WOOD PROCESSING WORKER 6401 [facility] ENMA DOE 542822 Assigned Surgical Provider 10/09/22 05/01/24 [place] [address] [address] [facility] 300 [place] [address] Assigned Musculoskeletal Provider 10/09/22 05/01/24 Alfonso Renteria MD [address] [facility] 200 [place], [place] 519856 Assigned Neuroscience Provider 04/02/23 Radha Lomeli APRN WOOD PROCESSING WORKER 6405 [facility] [address] [place], [place] 496465 Assigned Heart and Vascular Provider 05/28/23 Jelena David OD [address] [facility] [address] [place] [id number] Ophthalmology 06/15/23 Esha Grimm PA-C [address] [place] [address] Assigned PCP 07/16/23 Valery Veronica PA-C [address] [place] [address] 236285 Physician Director Of Marketing Communications Dermatology 09/19/23 Rey Tay MD [address] [place] [address] 645725 Gastroenterology 09/20/23 Rocky Zepeda DO [address] [place] [address] 704605 Physician Gastroenterology 09/20/23 Philip Dumont MD 516 [place] [address] Physician Ophthalmology 09/22/23 Meredith Carrera PA-C 909 [place] [address] Assigned Gastroenterology Provider 11/01/23 Neil Kent MD [address] [address] Dermatology 11/02/23 [place] [address] [address] Neurological Surgery 12/26/23 Audrey Waite PA-C [address] [place] [address] Physician Director Of Marketing Communications Dermatology 02/28/24 Valery Veronica PA-C [id number] [place] [address] Physician Director Of Marketing Communications Dermatology 04/10/24 documented as of this encounter
--- OUTSIDE RECORDS SUMMARY | 2024-05-27 08:44 | XMS_ITS | Encounter Summary ---
Author Organization [facility] Address [address] [place] [address] Care Team Providers Care Head Automatic Sawyer Name Role Phone Diana Desir Stanislav [facility] Unavailable Rain Galaviz PA-C Unavailable Tavia Wyatt MD Unavailable Unavailable Erica Farrell ENGINEERING TECHNICAL ANALYST UTILITY TENDER CARDING Unavailable Rich Barrett MD Unavailable Neil Kent MD Unavailable Thang Diana Stanislav [facility] Unavailable [phone] Livan Sharif MD Unavailable Catherine Cm MD Unavailable + Valery Veronica-C Unavailable Brea Quinn ENGINEERING TECHNICAL ANALYST UTILITY TENDER CARDING Unavailable Alfonso Renteria MD Unavailable [phone] Esha Grimm PA-C Primary Care Provider [phone] Radha Lomeli APRN UTILITY TENDER CARDING Unavailable Jelena Daivd OD Unavailable Esha Grimm PA-C Unavailable [phone] Valery Veronica PA-C Unavailable [phone] Rey Tay MD Unavailable Rocky Zepeda DO Unavailable Philip Dumont MD Unavailable [phone] Meredith Carrera PA-C Unavailable [phone] Neil Kent MD Unavailable Juan Pablo Emmanuel MD Unavailable [phone] Audrey Waite PA-C Unavailable [phone] Valery Veronica PA-C Unavailable [phone] Reason for Visit * Rehab Therapy Physical Therapy (Priority: 1-2 Weeks) - Pending Review Specialty Diagnoses / Procedures Referred By Qian t Referred To Contact Diagnoses Chiari malformation type I (H) Neck pain Ebony Cid APRN [facility] 500 [place] [address] Phone: tel: fax: Referral ID Status Reason Start Date Expiration Date V isits Requested Visits Authorized [id number] Pending Review 01/05/2024 01/04/2025 1 1 Encounter Details Date Type Department Care Team (Latest Contact Info) Description 05/14/2024 2:50 PM SQUADRON WORKER Therapy Visit [facility] Rehabilitation Services [address] [place] [address] Ingris Thompson, PT [facility] RE[facility] [address] [place] [address] 106 [place] [address] Neck pain (Primary Dx) Social [...] 1 02/07/2024 [facility] - [...] exercise at this level? 20 min 05/07/2024 [place] Depression Scale Answer Date Recorded [place] Depression Score 5 01/14/2021 Last EPDS Self [...] in an overnight mcc, or couch-surfing.) Yes 05/07/2024 Are you worried [...] PM CDT Legal Sex Female 4:13 AM SQUADRON WORKER Gender Identity Female 03/02/2021 5:45 PM CDT Sexual Orientation Straight 02/28/2020 12 :51 AM CDT documented as of this encounter Plan of Treatment Upcoming Encounters Date Type Department Care Team (Late st Contact Info) Description 05/31/2024 8:40 AM SQUADRON WORKER Therapy Visit [facility] Rehabilitation Services [address] [place] [address] Ingris Thompson, PT [facility] [address] [place] [address] 05/31/2024 3:30 PM SQUADRON WORKER Office Visit [facility] Specialty [place] [address] [place] [address] Audrey Díaz, Herminia Koo MD 1875 [place] [address] 06/04/2024 3:30 PM SQUADRON WORKER Office Visit [facility] 3[address] [facility] [address] [place] [phone] Jelena David, OD 3305 [facility] [place] [address] 06/11/2024 10:30 AM SQUADRON WORKER Appointment [facility] Respiratory Therapy [address] [place] [phone] Spec, Nurse Only Med 06/18/2024 2:50 PM SQUADRON WORKER Therapy Visit [facility] Rehabilitation Services [address] [place] [phone] Ingris Thompson, PT [facility] [address] [place] [address] 106 [place], [place] 762825 06/21/2024 2:00 PM SQUADRON WORKER Office Visit [facility] Neurology Clinics - [place] [address] [place] [address], [address] [place] [phone] [place] [address] [place] 85[address]17 Johnny Penn MD [address] [place] [address] 06/25/2024 8:30 AM SQUADRON WORKER Office Visit [facility] 830 [place] [address] Valery Veronica PA-C [address] [place] [address] 11/28/2024 7:45 AM CDT Virtual Visit [facility] Gastroenterology [address] 4th [place] [address] Meredith Carrera PA-C [address] [place] [address] documented as of this encounter Visit Diagnoses Diagnosis Neck pain- Primary Cervicalgia documented in this encounter Additional Health Concerns Assessment Noted Time PHQ-9 Depression Total Score: 3 02/07/20 24 9:33 AM CDT documented as of this encounter Care Teams Head Automatic Sawyer Relationship Specialty Start Date End Date Esha Grimm PA-C [address] [place] [address] PCP - General Family Medicine 05/04/23 Diana Desir, [facility] 3033 [place] [address] Pharmacist Pharmacist 04/17/21 Rian Galaviz PA-C [address] [place] [address] [place] [address] Physician Special Events Fundraiser Dermatology 04/28/21 Tavia Wyatt MD [address] [place] [address] [place] [address] Dermatology 07/14/21 Erica Farrell APRN UTILITY TENDER CARDING 6405 [facility] [address] [place] [address] Nurse Practitioner Cardiovascular Disease 09/09/21 Rich Barrett MD 516 [facility] 9A [place], [place] 447045 Physician Ophthalmology 01/21/22 Neil Kent MD 500 [place], [place] [phone] Dermatology 02/24/22 [facility] 3033 [place] [address] Assigned [facility] Pharmacist 04/07/22 Livan Sharif MD [address], [facility] [address] [place], [place] 45[address] Cardiovascular Disease 05/14/22 Catherine Cm MD 6405 [facility] S [facility] [address] [place], [place] 2138[address] Cardiovascular Disease 07/21/22 Valery Veronica, PA-C 909 [place], [place] 963355 Physician Special Events Fundraiser Dermatology 07/21/22 Brea Quinn APRN UTILITY TENDER CARDING 500 [place], [place] 840025 Nurse Practitioner Dermatology 09/21/22 Alfonso Renteria MD 5775 [facility] 200 [place], [place] [address] Assigned Neuroscience Provider 04/02/23 Armani Radha Sia ENGINEERING TECHNICAL ANALYST UTILITY TENDER CARDING [address] [place], [place] [address] Assigned Heart and Vascular Provider 05/28/23 Jelena David OD 3305 [facility] [place] [address] MD Ophthalmology 06/15/23 Esha Grimm PA-C [address] [place] [phone] Assigned PCP 07/16/23 Valery Veronica PA-C [address] [place] [address] 775115 Physician Special Events Fundraiser Dermatology 09/19/23 Rey Tay MD [address] [place] [address] 410685 Gastroenterology 09/20/23 Rocky Zepeda DO [address] [place] [address] 254155 Physician Gastroenterology 09/20/23 Philip Dumont MD [address] [place] [address] 866535 Physician Ophthalmology 09/22/23 Meredith Carrera PA-C 9 [place] [address] Assigned Gastroenterology Provider 11/01/23 Neil Kent MD [address] [address] Dermatology 11/02/23 [place] [address] [address] Neurological Surgery 12/26/23 Audrey Waite PA-C 500 [place] [address] Physician Special Events Fundraiser Dermatology 02/28/24 Valery Veronica PA-C 018325 [place] [address] Physician Special Events Fundraiser Dermatology 04/10/24 documented as of this encounter
--- OUTSIDE RECORDS SUMMARY | 2024-05-27 08:44 | XMS_ITS | Encounter Summary ---
Author Organization [place] Address [address] [place] [address] Care Team Providers Care Weed Sprayer Name Role Phone Diana Desir [facility] Unavailable Rain Galaviz PA-C Unavailable Tavia Wyatt MD Unavailable Unavailable Erica Farrell HAND MOUNTER STEAMER TENDER Unavailable Rich Barrett MD Unavailable Neil Kent MD Unavailable ThangDiana [facility] Unavailable [phone] Livan Sharif MD Unavailable Catherine Cm MD Unavailable + Valery Veronica PA-C Unavailable [phone] Brea Quinn HAND MOUNTER STEAMER TENDER Unavailable Brea Quinn HAND MOUNTER STEAMER TENDER Unavailable Jose Francisco Johnson MD Unavailable Alfonso Renteria MD Unavailable + [phone] Esha Grimm PA-C Primary Care Provider Radha Lomeli HAND MOUNTER STEAMER TENDER Unavailable [phone] Jelena David OD Unavailable Esha Grimm PA-C Unavailable [phone] Valery Veronica PA-C Unavailable Rey Tay MD Unavailable Rocky Zepeda Unavailable Philip Dumont MD Unavailable Meredith Carrera PA-C Unavailable Neil Kent MD Unavailable Juan Pablo Emmanuel MD Unavailable Audrey Waite PA-C Unavailable Valery Veronica PA-C Unavailable [phone] Encounter Details Date Type Department Care Team (Late st Contact Info) Description 04/22/2024 8:50 AM CDT E-Visit [facility] [id number] [place] [phone] Esha Grimm PA-C [address] [place] [phone] Screen for STD (sexually transmitted disease) (Primary Dx) Social History Tobacco Use Types [...] week 03/28/2024 How often do you attend [facility] or [facility] services? 1 to 4 [...] Answer Date Recorded PHQ-2 Score 1 02/07/2024 [facility]ational Stress Questionnaire [...] exercise at this level? 30 min 03/28/2024 [place] Depression Scale Answer Date Recorded [place] Depression Score 5 01/14/2021 Last EPDS Self [...] in an overnight jail, or couch-surfing.) Yes 03/28/2024 Are you worried [...] PM CDT Legal Sex Female 4:13 AM PREPARED FOODS SERVICE TEAM MEMBER Gender Identity Female 03/02/2021 5:45 PM CDT Sexual Orientation Straight 02/28/2020 12 :51 AM CDT documented as of this encounter Patient Instructions * Patient Instructions* Esha Grimm PA-C - 04/22/2024 8:50 AM CDT Thank you for choosing us for your care. I have placed the below lab(s) for you: Orders Placed This Encounter Procedures ??? Urinalysis Macroscopic ??? Wet preparation To schedule your lab appointment, please click the Schedule button in your [employer] Home Page. documented in this encounter Miscellaneous Notes * Telephone Encounter - Esha Grimm PA-C - 2024 7:23 AM CDT Provider E-Visit time total (minutes): 5 documented in this encounter Plan of Treatment Upcoming Encounters Date Type Department Care Team (Late st Contact Info) Description 05/31/2024 8:40 AM PREPARED FOODS SERVICE TEAM MEMBER Therapy Visit [facility] [address] [place] [address] [address] [place] [address] Ingris Thompson, PT [facility] [address] [place] [address] 05/31/2024 3:30 PM PREPARED FOODS SERVICE TEAM MEMBER Office Visit [facility] [address] [phone] Audrey Díaz, Herminia Koo MD [address] [place] [address] 06/04/2024 3:30 PM PREPARED FOODS SERVICE TEAM MEMBER Office Visit [address] [place] [phone] Jelena David, [address] [place] [address] 06/11/2024 10:30 AM PREPARED FOODS SERVICE TEAM MEMBER Appointment [facility] Respiratory Therapy [address] [place] [phone] Spec, Nurse Only Med 06/18/2024 2:50 PM PREPARED FOODS SERVICE TEAM MEMBER Therapy Visit [facility] [address] [facility] [address] [place] [address] Ingris Thompson, PT [address] [address] 06/21/2024 2:00 PM PREPARED FOODS SERVICE TEAM MEMBER Office Visit [facility] Neurology Clinics - [address], [address] [place] [phone] [place] [address] [facility] [place] 103447 Johnny Penn MD [address] [place], [place] [address] 06/25/2024 8:30 AM PREPARED FOODS SERVICE TEAM MEMBER Office Visit [address] [phone] Valery Veronica PA-C [address] [place] [address] 2105[address] 11/28/2024 7:45 AM CDT Virtual Visit [facility] G[facility]ology [facility] [address] 4th [place] [phone] Meredith Carrera PA-C [address] [place] [address]23695 documented as of this encounter Procedures Procedure Name Priority Date/Time Associated Diagnosis Comments CHLAMYDIA TRACHOMATIS/NEISSERI A GONORRHOEAE BY PCR Routine 2024 10:11 AM CDT Screen for STD (sexually transmitted disease) WET PREPARATION Routine 2024 10:11 AM CDT Screen for STD (sexually transmitted disease) documented in this encounter Results * HIV Antigen Antibody Combo (2024 10:11 AM CDT) Pathologist [facility] HIV Antigen Antibody Combo Nonreactive Nonreactive 2024 [...] BLOOD ORDERABLES Final R esult [facility] [place] [facility] [address] [facility], Room [address]580 [place] [address], [facility] * Chlamydia & Gonorrhea by PCR, [facility] - Clinic Collect (2024 10:11 AM CDT) Chlamydia Trachomatis Negative Negative 04/24/2024 11:19 AM CDT [facility] Comment: Negative for C. trachomatis rRNA by jet inspector mediated amplification. A negative result by jet inspector mediated amplification does not preclude the presence of infection because results are dependent on proper and adequate collection, absence of inhibitors and sufficient rRNA to be detected. Neisseria gonorrhoeae Negative Negative 04/24/2024 11:19 AM CDT [facility] Comment:Negative for N. gono rrhoeae rRNA by jet inspector mediated amplification. A negative result by jet inspector mediated amplification does not preclude the presence of C. trachomatis infection because results are dependent on proper and adequate collection, absence of inhibitors and sufficient rRNA to be detected. Swab VAGINAL STRUCTURE / Unknown Non-blood Collection / Unknown 2024 10:11 AM CDT 2024 10:34 AM CDT Esha Grimm PA-C LAB - MICRO GENERAL ORDERABLES Final Result [facility] Inf. Diseases Diag. Lab [address] [facility], [address] [place] [address], [facility] * Treponema Abs w Reflex to RPR and Titer (2024 10:11 AM CDT) Treponema Antibody Total Nonreactive Nonreactive 2024 8:35 PM CDT SPECIALTY CORE/PROT/EN DO Blood BLOOD SPECIMEN / Unknown Venipuncture / Unknown 2024 10:11 AM CDT 2024 10:11 AM CDT Esha Grimm PA-C LAB - BLOOD ORDERABLES Final R esult SPECIALTY CORE/PROT/ENDO Specialty Core/Prot/Endo [address] [facility], Room 3-[address] * (ABNORMAL) Wet preparation (2024 10:11 AM CDT) Trichomonas Absent Absent REINA 2024 10:48 AM CDT [facility] Yeast Absent Absent REINA 2024 10:48 AM CDT [facility] Clue Cells Absent Absent REINA 2024 10:48 AM CDT [facility] WBCs/high power field 1+(A) None REINA 2024 10:48 AM CDT [facility] Swab VAGINAL STRUCTURE / Unknown Non-blood Collection / Unknown 2024 10:11 AM CDT 2024 10:34 AM CDT Esha Grimm PA-C LAB - MICRO GENERAL ORDERABLES Final Result LABORATORY [facility] [place] Lab [address] [facility] Lab (no room number, 1st floor of clinic) [place] [address], [facility] * Urinalysis Macroscopic (2024 10:11 AM CDT) Color Urine Yellow Colorless, Straw, Light Yellow, Yellow 2024 10:36 AM CDT [facility] Appearance Urine Clear Clear 04/23/20 10:36 AM CDT [facility] Glucose Urine Negative Negative mg/dL 2024 10:36 AM CDT [facility] Bilirubin Urine Negative Negative 10:36 AM CDT [facility] Ketones Urine Negative Negative mg/dL 2024 10:36 AM CDT [facility] Specific [place] Urine >=1.030 1.003 - 1.035 2024 10:36 [...] - URINE ORDERABLES Final R esult LABORATORY [facility] [place] [facility] [address] [facility] Lab (no room number, 1st floor of clinic) [place] [address], [facility] documented in this encounter Visit Diagnoses Diagnosis Screen for STD (sexually transmitted disease)- Primary Screening examination for venereal disease documented in this encounter Additional Health Concerns Assessment Noted Time PHQ-9 Depression Total Score: 3 02/07/20 24 9:33 AM CDT documented as of this encounter Care Teams Weed Sprayer Relationship Specialty Start Date End Date Esha Grimm PA-C [address] [place] [phone] PCP - General Family Medicine 05/04/23 Diana Desir, [facility] [address] [place] [address] Pharmacist Pharmacist 04/17/21 Rain Galaviz PA-C [address] [place] [address] [address] [place] [address] Physician Semiconductor Package Symbol Stamper Dermatology 04/28/21 Tavia Wyatt MD [address] [place] [address] [place] [address] Dermatology 07/14/21 Erica Farrell APRN STEAMER TENDER [address] [place] [id number] Nurse Practitioner Cardiovascular Disease 09/09/21 Rich Barrett MD [address] [place] [address] 684985 Physician Ophthalmology 01/21/22 Neil Kent MD 500 [place], [place] 352675 Dermatology 02/24/22 Diana Desir, [facility] [address] [place] [address] Assigned MTM Pharmacist 04/07/22 Livan Sharif MD [address] [place] 378[address] Cardiovascular Disease 05/14/22 Catherine Cm MD [address] [place] 273715 Cardiovascular Disease 07/21/22 Valery Veronica PA-C [address]09 [place], [place] 639325 Physician Semiconductor Package Symbol Stamper Dermatology 07/21/22 Brea Quinn APRN STEAMER TENDER 500 [place], [place] 303655 Nurse Practitioner Dermatology 09/21/22 Brea Quinn APRN STEAMER TENDER [address] [place], [place] 764712 Assigned Surgical Provider 10/09/22 05/01/24 [place] [address] [address] [facility] [address] [place] [address] Assigned Musculoskeletal Provider 10/09/22 05/01/24 Alfonso Renteria MD [address] [facility] 200 [place], [place] 252956 Assigned Neuroscience Provider 04/02/23 Radha Lomeli APRN STEAMER TENDER [address] [facility] [address] [place], [place] 667115 Assigned Heart and Vascular Provider 05/28/23 Jelena David OD [address] [facility] [place] [address] Ophthalmology 06/15/23 Esha Grimm PA-C [address] [place] [phone] Assigned PCP 07/16/23 Valery Veronica PA-C 9[address] [place] [address] Physician Semiconductor Package Symbol Stamper Dermatology 09/19/23 Rey Tay MD [address] [place] [address] MD Gastroenterology 09/20/23 Rocky Zepeda DO 500 [place], [place] 270645 Physician Gastroenterology 09/20/23 Philip Dumont MD 6 [place] [address] Physician Ophthalmology 09/22/23 Meredith Carrera PA-C 9 [place] [address] Assigned Gastroenterology Provider 11/01/23 Neil Kent MD [address] [address] Dermatology 11/02/23 [place] [address] 032767 Neurological Surgery 12/26/23 Audrey Waite PA-C 500 [place] [address] Physician Semiconductor Package Symbol Stamper Dermatology 02/28/24 Valery Veronica PA-C [id number] [place] [address] Physician Semiconductor Package Symbol Stamper Dermatology 04/10/24 documented as of this encounter
--- OUTSIDE RECORDS SUMMARY | 2024-05-27 08:44 | XMS_ITS | Encounter Summary ---
Author Organization [place] Address [address] [place] [address] Care Team Providers Care Peripheral Vascular Tech Name Role Phone Diana Desir Stanislav [facility] Unavailable Rain Galaviz PA-C Unavailable Tavia Wyatt MD Unavailable Unavailable Erica Farrell ROOF MECHANIC LEAD NET SOFTWARE DEVELOPER Unavailable Rich Barrett MD Unavailable Neil Kent MD Unavailable Thang Diana Stanislav [facility] Unavailable [phone] Livan Sharif MD Unavailable Catherine Cm MD Unavailable + Valery Veronica-C Unavailable [phone] Brea Quinn ROOF MECHANIC LEAD NET SOFTWARE DEVELOPER Unavailable [phone] Alfonso Renteria MD Unavailable [phone] Esha Grimm PA-C Primary Care Provider Radha Lomeli APRN LEAD NET SOFTWARE DEVELOPER Unavailable Jelena David OD Unavailable Esha Grimm PA-C Unavailable [phone] Valery VeronicaC Unavailable [phone] Rey Tay MD Unavailable Rocky Zepeda DO Unavailable Philip Dumont MD Unavailable [phone] Meredith CarreraC Unavailable [phone] Neil Kent MD Unavailable Juan Pablo Emmanuel MD Unavailable [phone] Audrey Waite PA-C Unavailable [phone] Valery Veronica PA-C Unavailable [phone] Encounter Details Date Type Department Care Team (Latest Contact Info) Description 05/08/2024 Travel Social History Tobacco Use Types Packs/Day [...] week 05/07/2024 How often do you attend [facility] or yarsani services? 1 to 4 times [...] Date Recorded PHQ-2 Score 1 02/07/2024 [facility] - Occupational Stress [...] exercise at this level? 20 min 05/07/2024 [place] Depression Scale Answer Date Recorded [place] Depression Score 5 01/14/2021 Last EPDS [...] in an overnight penitentiary, or couch-surfing.) Yes 05/07/2024 Are you worried [...] PM CDT Legal Sex Female 4:13 AM PAINT SPRAY TENDER Gender Identity Female 03/02/2021 5:45 PM CDT Sexual Orientation Straight 02/28/2020 12 :51 AM CDT documented as of this encounter Plan of Treatment Upcoming Encounters Date Type Department Care Team (Late st Contact Info) Description 05/31/2024 8:40 AM PAINT SPRAY TENDER Therapy Visit [facility] [address] [place] [phone] Ingris Thompson, PT [facility] [address] [place] [address] 400805 05/31/2024 3:30 PM PAINT SPRAY TENDER Office Visit [facility] Specialty [address] [phone] Audrey Díaz, Herminia Koo MD [address] [place] [address] 06/04/2024 3:30 PM PAINT SPRAY TENDER [facility] [address] [place] [address] [address] [place] [phone] Jelena David, SONJA [address] [place] [address] [place] [address] 06/11/2024 10:30 AM PAINT SPRAY TENDER Appointment [facility] Respiratory Therapy [address] [place] [address] Spec, Nurse Only Med 06/18/2024 2:50 PM PAINT SPRAY TENDER Therapy Visit [facility] Rehabilitation Services [place] [address] [place] [address] [address] [place] [phone] Ingris Thompson, PT [facility] [address] [facility] 106 [place], [place] [address]695 06/21/2024 2:00 PM PAINT SPRAY TENDER Office Visit [facility] Neurology Clinics - [place] [address] [facility], [address] [place] [phone] [place] [address] [place], [place] [address] Johnny Penn MD [address] [facility] [place], [place] [address]14[address] 06/25/2024 8:30 AM PAINT SPRAY TENDER Office Visit [address] [phone] Valery Veronica PA-C [address] [place] [address] 491205 11/28/2024 7:45 AM CDT Virtual Visit [facility] Gastroenterology Clinic [address] 4th [place] [phone] Meredith Carrera PA-C [address] [place] [address] 057615 documented as of this encounter Visit Diagnoses Not on filedocumented in this encounter Additional Health Concerns Assessment Noted Time PHQ-9 Depression Total Score: 3 02/07/20 24 9:33 AM CDT documented as of this encounter Care Teams Peripheral Vascular Tech Relationship Specialty Start Date End Date Esha Grimm PA-C [address] [place] [phone] PCP - General Family Medicine 05/04/23 Diana Desir, [facility] [address] [place] [address] Pharmacist Pharmacist 04/17/21 Rain Galaviz PA-C [address] [place] [address] [address] [place] [address] Physician Director Diabetes Dermatology 04/28/21 Tavia Wyatt MD [address] [place] [address] [address] [place] [address] Dermatology 07/14/21 Erica Farrell, ARLENE LEAD NET SOFTWARE DEVELOPER [address] [place], [place] 554[address] Nurse Practitioner Cardiovascular Disease 09/09/21 Rich Barrett MD [address] [facility] [address] [place], [place] 326925 Physician Ophthalmology 01/21/22 Neil Kent MD 500 [place], [place] [phone] Dermatology 02/24/22 Diana Desir, [facility] [address] [place] [address] Assigned MTM Pharmacist 04/07/22 Livan Sharif MD [address] [place] [address] Cardiovascular Disease 05/14/22 Catherine Cm MD [address] [facility] [address] [place] [address] Cardiovascular Disease 07/21/22 Valery Veronica PA-C [address] [place] [address] 426785 Physician Director Diabetes Dermatology 07/21/22 Brea Quinn APRN LEAD NET SOFTWARE DEVELOPER [address] [place] [address] 566425 Nurse Practitioner Dermatology 09/21/22 Alfonso Renteria MD 57[address] [facility] 200 [place], [place] 897616 Assigned Neuroscience Provider 04/02/23 Radha Lomeli APRN LEAD NET SOFTWARE DEVELOPER [address] [place] [address] Assigned Heart and Vascular Provider 05/28/23 Jelena David OD [facility]5 [facility] [place] [address] Ophthalmology 06/15/23 Esha Grimm PA-C [address] [place] [phone] Assigned PCP 07/16/23 Valery Veronica PA-C [address] [place] [address] Physician Director Diabetes Dermatology 09/19/23 Rey Tay MD 9 [place] [address] MD Gastroenterology 09/20/23 Rocky Zepeda DO 500 [place] [address] Physician Gastroenterology 09/20/23 Philip Dumont MD 516 [place] [address] Physician Ophthalmology 09/22/23 Meredith Carrera PA-C 9 [place] [address] Assigned Gastroenterology Provider 11/01/23 Neil Kent MD [address] [place] [address] Dermatology 11/02/23 [place] [address] [place] [address] Neurological Surgery 12/26/23 Audrey Waite PA-C 500 [place] [address] Physician Director Diabetes Dermatology 02/28/24 Valery Veronica PA-C [address] [place] [address] Physician Director Diabetes Dermatology 04/10/24 documented as of this encounter
--- OUTSIDE RECORDS SUMMARY | 2024-05-27 08:44 | XMS_ITS | Encounter Summary ---
Author Organization [facility] Address [address] [place] [address] Care Team Providers Care Dredge Operator Supervisor Name Role Phone Diana Desir Stanislav [facility] Unavailable [phone] Rain Galaviz PA-C Unavailable Tavia Wyatt MD Unavailable Unavailable Erica Farrell TIME STUDY OBSERVER ROBOTICS ENGINEER Unavailable Rich Barrett MD Unavailable Neil Kent MD Unavailable Thang Diana Stanislav [facility] Unavailable [phone] Livan Sharif MD Unavailable Catherine Cm MD Unavailable + Valery Veronica-C Unavailable Brea Quinn TIME STUDY OBSERVER ROBOTICS ENGINEER Unavailable [phone] Alfonso Renteria MD Unavailable [phone] Esha Grimm PA-C Primary Care Provider Rahda Lomeli APRN ROBOTICS ENGINEER Unavailable Jelena David OD Unavailable Esha Grimm PA-C Unavailable [phone] Valery Veronica-C Unavailable [phone] Rey Tay MD Unavailable Rocky Zepeda DO Unavailable Philip Dumont MD Unavailable [phone] Meredith CarreraC Unavailable [phone] Neil Kent MD Unavailable Juan Pablo Emmanuel MD Unavailable [phone] Audrey Waite-C Unavailable [phone] Valery Veronica-C Unavailable [phone] Encounter Details Date Type Department Care Team (Late st Contact Info) Description 05/11/2024 [facility] [id number] [place] [phone] Esha Grimm PA-C [id number] [place] [phone] Social History Tobacco Use Types Packs/Day [...] 05/07/2024 How often do you attend chur ch [...] Answer Date Recorded PHQ-2 Score 1 02/07/2024 [facility] of Occupat ional [...] exercise at this level? 20 min 05/07/2024 [place] Depression Scale Answer Date Recorded [place] Depression Score 5 01/14/2021 Last EPDS Self [...] in an overnight snf, or couch-surfing.) Yes 05/07/2024 Are you worried [...] PM CDT Legal Sex Female 4:13 AM LEATHER CUTTER Gender Identity Female 03/02/2021 5:45 PM CDT Sexual Orientation Straight 02/28/2020 12 :51 AM CDT documented as of this encounter Plan of Treatment Upcoming Encounters Date Type Department Care Team (Late st Contact Info) Description 05/31/2024 8:40 AM LEATHER CUTTER Therapy Visit [facility] Rehabilitation Services [address] [place] [phone] Ingris Thompson, PT [facility] [address] [place] [address] 106 [place], [place] [address] 05/31/2024 3:30 PM LEATHER CUTTER Office Visit [facility] Specialty [facility] [address] [phone] Audrey Díaz PA-C Khan, Waseem, MD [address] [place] [address] 06/04/2024 3:30 PM LEATHER CUTTER Office Visit [address] [place] [address] Jelena David, OD [address] [facility] [place] [address] 06/11/2024 10:30 AM LEATHER CUTTER Appointment [facility] Respiratory Therapy [address] [place] [phone] Spec, Nurse Only Med 06/18/2024 2:50 PM LEATHER CUTTER Therapy Visit [facility] [place] [address] [facility] [address] [place] [phone] Ingris Thompson, PT [facility] 6 [facility] 106 [place], [place] [address] 06/21/2024 2:00 PM LEATHER CUTTER Office Visit [facility] [place] [address] [place] [address], [address] [place] [phone] [place] [address] [place], [place] [address] Johnny Penn MD [address] [place], [place] [address] 06/25/2024 8:30 AM LEATHER CUTTER Office Visit [address] [phone] Valery Veronica PA-C [address] [place] [address] 5877[address] 11/28/2024 7:45 AM CDT Virtual Visit [facility] Gastroenterology Clinic [address] 4th [place] [address] Meredith Carrera, PAUcheC [address] [place] [address] documented as of this encounter Visit Diagnoses Not on filedocumented in this encounter Additional Health Concerns Assessment Noted Time PHQ-9 Depression Total Score: 3 02/07/20 24 9:33 AM CDT documented as of this encounter Care Teams Dredge Operator Supervisor Relationship Specialty Start Date End Date Esha Grimm PA-C [address] [place] [phone] PCP - General Family Medicine 05/04/23 Diana Desir, [facility] [address] [place] [address] Pharmacist Pharmacist 04/17/21 Rain Galaviz PA-C [address] [place] [address] [address] [place] [address] Physician Tank Builder And Erector Dermatology 04/28/21 Tavia Wyatt MD [address] [place] [address] DR [address] [facility] [place] [address] Dermatology 07/14/21 Erica Farrell APRN ROBOTICS ENGINEER [address] [facility] [address] [place] [address] Nurse Practitioner Cardiovascular Disease 09/09/21 Rich Barrett MD [address] 764165 Physician Ophthalmology 01/21/22 Neil Kent MD [address] [place], [place] [address]105 Dermatology 02/24/22 Diana Desir, [facility] [address] [place], [place] 827266 Assigned MTM Pharmacist 04/07/22 Livan Sharif MD [address], [facility] [address] [place] 3544[address] Cardiovascular Disease 05/14/22 Catherine Cm MD [address] [facility] [address] [place], [place] [address] Cardiovascular Disease 07/21/22 Valery Veronica PA-C [address] [place], [place] 658785 Physician Tank Builder And Erector Dermatology 07/21/22 Brea Quinn APRN ROBOTICS ENGINEER 500 [place], [place] 159075 Nurse Practitioner Dermatology 09/21/22 Alfonso Renteria MD [address] [facility] [address] [place], [place] 697436 Assigned Neuroscience Provider 04/02/23 Radha Lomeli APRN ROBOTICS ENGINEER [address] [place] 17[address]85 Assigned Heart and Vascular Provider 05/28/23 Jelena Davdi OD [address] [facility] [place] [address] Ophthalmology 06/15/23 Esha Grimm PAUcheC [address] [facility] [place] [phone] Assigned PCP 07/16/23 Valery Veronica PA-C [address] [place] [address] Physician Tank Builder And Erector Dermatology 09/19/23 Rey Tay MD [address] [place] [address] MD Gastroenterology 09/20/23 Rocky Zepeda DO [address] [place] [address] 139145 Physician Gastroenterology 09/20/23 Philip Dumont MD [address] [place] [address] 126105 Physician Ophthalmology 09/22/23 Meredith Carrera PA-C [address] [place] [address] Assigned Gastroenterology Provider 11/01/23 Neil Kent MD [address] [address] Dermatology 11/02/23 [place] [address] [place] 248807 Neurological Surgery 12/26/23 Audrey Waite PA-C [address] [place] [address] 948815 Physician Tank Builder And Erector Dermatology 02/28/24 Valery Veronica PA-C [address] [place] [address] Physician Tank Builder And Erector Dermatology 04/10/24 documented as of this encounter
--- OUTSIDE RECORDS SUMMARY | 2024-05-27 08:44 | XMS_ITS | Encounter Summary ---
Author Organization [facility] Address [address] [place] [address] Care Team Providers Care Telephone Recorder Name Role Phone Diana Desir [facility] Unavailable Rain Galaviz PA-C Unavailable Tavia Wyatt MD Unavailable Unavailable Erica Farrell TABLE TENDER SLUDGE CHIEF SUSTAINABILITY OFFICER Unavailable Rich Barrett MD Unavailable Neil Kent MD Unavailable ThangDiana [facility] Unavailable [phone] Livan Sharif MD Unavailable Catherine Cm MD Unavailable + Valery Veronica PA-C Unavailable [phone] Brea Quinn TABLE TENDER SLUDGE CHIEF SUSTAINABILITY OFFICER Unavailable Brea Quinn TABLE TENDER SLUDGE CHIEF SUSTAINABILITY OFFICER Unavailable Jose Francisco Johnson MD Unavailable Alfonso Renteria MD Unavailable + [phone] Esha Grimm PA-C Primary Care Provider Radha Lomeli TABLE TENDER SLUDGE CHIEF SUSTAINABILITY OFFICER Unavailable [phone] Jelena David OD Unavailable [phone] Esha Grimm PA-C Unavailable [phone] Valery Veronica PA-C Unavailable [phone] Rey Tay MD Unavailable Rocky Zepeda DO Unavailable Philip Dumont MD Unavailable Meredith Carrera PA-C Unavailable [phone] Neil Kent MD Unavailable Juan Pablo Emmanuel MD Unavailable [phone] Audrey Waite PA-C Unavailable [phone] Valery Veronica PA-C Unavailable Reason for Visit * Reason Onset Date Comments Results 04/24/2024 Encounter Details Date Type Department Care Team (Late st Contact Info) Description 04/24/2024 Telephone [facility] Heart [address] [place] [address] Rani Gross, RN Results Social History Tobacco Use Types Packs/Day Years [...] 1 02/07/2024 [facility] of Occupat ional [...] exercise at this level? 30 min 03/28/2024 [place] Depression Scale Answer Date Recorded [place] Depression Score 5 01/14/2021 Last EPDS Self [...] an overnight group home, or couch-surfing.) Yes 03/28/2024 Are you worried [...] PM CDT Legal Sex Female 4:13 AM DRAWING TRACER Gender Identity Female 03/02/2021 5:45 PM CDT Sexual Orientation Straight 02/28/2020 12 :51 AM CDT documented as of this encounter Miscellaneous Notes * Telephone Encounter - Natali Serrano RN - 04/26/2024 10:24 AM CDT Signed summary sent to scan * Telephone Encounter - Radha Lomeli APRN CNP - 04/24/2024 12:37 PM CDT Preliminary Heart monitor results reviewed Showed normal sinus rhythm No concerning arrhythmias GERRI [place] * Telephone Encounter - Rani Gross RN - 04/24/2024 9:31 AM CDT End of service summary received for event monitor worn 03/09-03/26/24, ordered by Radha Lomeli BOSTON CUTTER at visit 03/06/24 for palpitations, chest discomfort. Hx AVNRT s/p ablation 2021. Report showed SR/ST w/ rare PVCs, HR 70-120's. Symptoms primarily correlated w/ SR/ST. Routed to provider to review, Dr Sharif to sign. documented in this encounter Plan of Treatment Upcoming Encounters Date Type Department Care Team (Late st Contact Info) Description 05/31/2024 8:40 AM DRAWING TRACER Therapy Visit [address] [place] [phone] Ingris Thompson, PT [facility] [address] [place] [address] 05/31/2024 3:30 PM DRAWING TRACER Office Visit [address] [phone] Audrey Díaz, Herminia Koo MD [address] [place] [address] 06/04/2024 3:30 PM DRAWING TRACER Office Visit [address] [place] [phone] Jelena David, [address] [place] [address] 06/11/2024 10:30 AM DRAWING TRACER Appointment [facility] Respiratory Therapy [address] [place] [phone] Spec, Nurse Only Med 06/18/2024 2:50 PM DRAWING TRACER Therapy Visit [address] [place] [phone] Ingris Thompson, PT [address] [address] 06/21/2024 2:00 PM DRAWING TRACER Office Visit [facility] Neurology [facility] [address] [facility], [address] [place] [phone] [place] [address] [place], [place] [address] Johnny Penn MD [address]771 [place], [place] [address] 06/25/2024 8:30 AM DRAWING TRACER Office Visit [address] [phone] Valery Veronica PAUcheC [address] [place] [address]625 11/28/2024 7:45 AM CDT Virtual Visit [facility] Gastroenterology Clinic [address] [place] [phone] Meredith Carrera PA-C [address] [place] [address] 697485 documented as of this encounter Visit Diagnoses Not on filedocumented in this encounter Additional Health Concerns Assessment Noted Time PHQ-9 Depression Total Score: 3 02/07/20 24 9:33 AM CDT documented as of this encounter Care Teams Telephone Recorder Relationship Specialty Start Date End Date Esha Grimm PA-C [address] [place] [phone] PCP - General Family Medicine 05/04/23 Diana Desir, [facility] [address] [place], [place] 108806 Pharmacist Pharmacist 04/17/21 Rain Galaviz PA-C [address] [place] [address] [address] [place] [address] Physician Diamond Driller Helper Dermatology 04/28/21 Tavia Wyatt MD [address] [place] [address] [place] [address] Dermatology 07/14/21 Erica Farrell APRN CHIEF SUSTAINABILITY OFFICER [address] [place] [address]9925 Nurse Practitioner Cardiovascular Disease 09/09/21 Rich Barrett MD 516 [facility], [address] [address] Physician Ophthalmology 01/21/22 Neil Kent MD 500 [place], [place] 8[address]35 Dermatology 02/24/22 Diana Desir, [facility] [address] [place] [address] Assigned MTM Pharmacist 04/07/22 Livan Sharif MD [address], [facility] [address] [place] 9[address] Cardiovascular Disease 05/14/22 Catherine Cm MD [address] [address] [place] [address] Cardiovascular Disease 07/21/22 Valery Veronica PA-C 909 [place] [address] Physician Diamond Driller Helper Dermatology 07/21/22 Brea Quinn APRN CHIEF SUSTAINABILITY OFFICER 500 [place] [address] Nurse Practitioner Dermatology 09/21/22 Brea Quinn APRN CHIEF SUSTAINABILITY OFFICER 6401 [place] [address] Assigned Surgical Provider 10/09/22 05/01/24 [place] [address] [address] [place] [address] Assigned Musculoskeletal Provider 10/09/22 05/01/24 Alfonso Renteria MD [address] [facility] 200 [place], [place] [address]2036 Assigned Neuroscience Provider 04/02/23 Radha Lomeli APRN CHIEF SUSTAINABILITY OFFICER [address] [facility] [address] [place] [address] Assigned Heart and Vascular Provider 05/28/23 Jelena David OD [address] [place] [address] Ophthalmology 06/15/23 Esha Grimm PA-C [address] [place] [address] Assigned PCP 07/16/23 Valery Veronica PA-C 909 [place] [address] Physician Diamond Driller Helper Dermatology 09/19/23 Rey Tay MD 9 [place] [address] MD Gastroenterology 09/20/23 Rocky Zepeda DO 500 [place] [address] Physician Gastroenterology 09/20/23 Philip Dumont MD [address] [place] [address] Physician Ophthalmology 09/22/23 Meredith Carrera PA-C 9 [place] [address] Assigned Gastroenterology Provider 11/01/23 Neil Kent MD [address] [address] Dermatology 11/02/23 [place] [address] [address] Neurological Surgery 12/26/23 Audrey Waite PA-C 500 [place] [address] Physician Diamond Driller Helper Dermatology 02/28/24 Valery Veronica PA-C 329695 [address] [place] [address] Physician Diamond Driller Helper Dermatology 04/10/24 documented as of this encounter
--- OUTSIDE RECORDS SUMMARY | 2024-05-27 08:45 | XMS_ITS | Encounter Summary ---
Author Organization [facility] Address [address] [place] [address] Care Team Providers Care Labor Specialist Name Role Phone Diana Desir [facility] Unavailable Rain Galaviz PA-C Unavailable [phone] Tavia Wyatt MD Unavailable Unavailable Erica Farrell PREANALYTICS TEAM LEAD TACK PICKER Unavailable Rich Barrett MD Unavailable Neil Kent MD Unavailable ThangDiana [facility] Unavailable [phone] Livan Sharif MD Unavailable Catherine Cm MD Unavailable + Valery Veronica PA-C Unavailable [phone] Brea Quinn PREANALYTICS TEAM LEAD TACK PICKER Unavailable Brea Quinn PREANALYTICS TEAM LEAD TACK PICKER Unavailable Jose Francisco Johnson MD Unavailable Alfonso Renteria MD Unavailable + [phone] Esha Grimm PA-C Primary Care Provider [phone] Radha Lomeli PREANALYTICS TEAM LEAD TACK PICKER Unavailable Jelena David OD Unavailable Esha Grimm Adam PA-C Unavailable [phone] Valery Veronica PA-C Unavailable Rey Tay MD Unavailable Rocky Zepeda Unavailable Philip Dumont MD Unavailable Meredith Carrera PA-C Unavailable Neil Kent MD Unavailable Juan Pablo Emmanuel MD Unavailable [phone] Audrey Waite PA-C Unavailable Reason for Referral * Diagnostic Imaging CT Scan (Routine) - Closed Specialty Diagnoses / Procedures Referred By Qian mayers Referred To Contact Radiology. Diagnoses Chronic upper back pain Atypical chest pain Chest tightness Procedures CT Chest w Contrast Fady Menon MD [address] [place] [address] Phone: tel: fax: [facility] [address] [place] [address] Phone: tel: fax: Referral ID Status Reason Start Date Expiration Date Visits Re quested Visits Authorized [id number] Closed 03/29/2024 03/29/2025 1 1 Reason for Visit * Diagnostic Imaging CT Scan (Routine) - Closed Specialty Diagnoses / Procedures Referred By Contac t Referred To Contact Radiology. Diagnoses Chronic upper back pain Atypical chest pain Chest tightness Procedures CT Chest w Contrast Fady Menon MD [address] [place] [address] Phone: tel: fax: [facility] [address] [place] [address] Phone: tel: fax: Referral ID Status Reason Start Date Expiration Date Visits Re quested Visits Authorized [id number] Closed 03/29/2024 03/29/2025 1 1 Encounter Details Date Type Department Care Team (Latest Contact Info) Description 03/29/2024 11:05 AM CDT - 03/29/2024 11:59 PM CDT Hospital Encounter [facility] [address] [place] [address] Fady Menon MD [address] [phone] Chronic upper back pain; Atypical chest pain; [...] Answer Date Recorded PHQ-2 Score 1 02/07/2024 [facility] - Occupational Stress Questionnaire Answer Date Recorded [...] exercise at this level? 30 min 03/28/2024 [place] Depression Scale Answer Date Recorded [place] [...] in an overnight snf, or couch-surfing.) Yes 03/28/2024 Are you worried [...] PM CDT Legal Sex Female 4:13 AM CHEMICAL PROCESSING SUPERVISOR Gender Identity Female 03/02/2021 5:45 PM CDT Sexual Orientation Straight 02/28/2020 12 :51 AM CDT documented as of this encounter Medications at Time of Discharge clindamycin (CLEOCIN T) 1 % external lotionIndications :Acne, unspecified acne type Apply topically 2 times daily 60 mL 1 09/01/2023 Digestive Enzymes (DIGESTIVE ENZYME PO) ketoconazole (NIZORAL) 2 % external shampooIndication s:Psoriasis Use every 1-2 days when flared. Leave in few minutes before rinsing. Use twice weekly to prevent flares. 120 mL 11 11/17/2023 levonorgestrel (MIRENA) 52 MG (20 mcg/day) IUD by Intrauterine route once LORazepam (ATIVAN) 0.5 MG tabletIndications :Anxiety Take 1 tablet (0.5 mg) by mouth daily as needed for anxiety 30 tablet 10/27/2023 Multiple Vitamin (MULTIVITAMIN ADULT PO) omeprazole (PRILOSEC) [address] capsuleIndication s:Epigastric pain TAKE 1 CAPSULE BY MOUTH DAILY. 90 capsule 3 09/16/2023 PARoxetine (PAXIL) 40 MG tabletIndications :Anxiety TAKE ONE TABLET BY MOUTH EVERY MORNING 90 tablet 1 03/19/2024 Probiotic Product (PROBIOTIC BLEND PO) tacrolimus (PROTOPIC) 0.1 % external ointmentIndicatio ns:Psoriasis Apply thin layer to psoriasis on thinner skin of face/genitals up to twice daily as needed. 60 g 11 10/01/2022 tretinoin (RETIN-A) 0.05 % external creamIndications: Acne, unspecified acne type Apply topically at bedtime 45 g 09/01/2023 triamcinolone (KENALOG) 0.1 % external ointmentIndicatio ns:Psoriasis Apply topically 2 times daily To psoriasis on body or arms/legs until healed then stop 80 g 2 10/01/2022 metoprolol succinate ER (TOPROL XL) 25 MG 24 hr tabletIndications :Palpitations Take 0.5 tablets (12.5 mg) by mouth daily 45 tablet 1 11/22/2023 documented as of this encounter Plan of Treatment Upcoming Encounters Date Type Department Care Team (Late st Contact Info) Description 05/31/2024 8:40 AM CHEMICAL PROCESSING SUPERVISOR Therapy Visit [facility] [address] [place] [phone] Ingris Thompson, PT [facility] [address] [place] [address] [address] [place] [address] 05/31/2024 3:30 PM CHEMICAL PROCESSING SUPERVISOR Office Visit [facility] [place] [address] [place] [phone] Audrey Díaz, Herminia Koo MD [address] [place] [address] 06/04/2024 3:30 PM CHEMICAL PROCESSING SUPERVISOR Office Visit [facility] [place] [facility] [address] [place] [phone] Jelena David, SONJA [address] [place] [address] [place] [address] 06/11/2024 10:30 AM CHEMICAL PROCESSING SUPERVISOR Appointment [facility] [address] [place] [phone] Spec, Nurse Only Med 06/18/2024 2:50 PM CHEMICAL PROCESSING SUPERVISOR Therapy Visit [facility] [place] [address] [facility] [address] [place] [address] Ingris Thompson, PT [facility] [address] [facility] [address] [place] [address] 06/21/2024 2:00 PM CHEMICAL PROCESSING SUPERVISOR Office Visit [facility] [place] [address] [place] [address], [address] [place] [phone] [place] [address] RAZO [facility] [place], [place] [phone] Johnny Penn MD [address] [place], [place] [phone] 06/25/2024 8:30 AM CHEMICAL PROCESSING SUPERVISOR Office Visit [address] [phone] Valery Veronica PA-C [address] [place] [address] 11/28/2024 7:45 AM CDT Virtual Visit [facility] [address] 4th [place] [phone] Meredith Carrera PA-C [address] [place] [address] 920145 documented as of this encounter Procedures Procedure Name Priority Date/Time Associated Diagnosis Comments CT CHEST W CONTRAST STAT 03/29/2024 1 2:19 PM CDT Chronic upper back pain Atypical chest pain Chest tightness documented in this encounter Results * CT Chest w Contrast (03/29/2024 12:19 [...] MD IMG CT ORDERABLES Final Resu lt documented in this encounter Visit Diagnoses Diagnosis Chronic upper back pain Backache, unspecified Atypical chest pain Other chest pain Chest tightness Other chest pain documented in this encounter Administered Medications Inactive Administered Medications - up to 3 most recent administrations Medication Order MAR Action Action Date Dose Rate Site CT scan flush use As instructed, 100 mL, ONCE, On Noa 03/29/24 at 1230, For 1 dose, This entry is for use by Radiology to intermittently used as a flush in patients receiving a CT scan. $Given 03/29/2024 12:11 PM CDT 99 mLs iopamidol (ISOVUE-370) solution 500 mL 500 mL, Intravenous, ONCE, On Noa 03/29/24 at 1230, For 1 dose $Given 03/29/2024 12:11 PM CDT 99 mLs documented in this encounter Additional Health Concerns Assessment Noted Time PHQ-9 Depression Total Score: 3 02/07/20 24 9:33 AM CDT documented as of this encounter Care Teams Labor Specialist Relationship Specialty Start Date End Date Esha Grimm PA-C [address] [place] [phone] PCP - General Family Medicine 05/04/23 Diana Desir, [facility] [address] [place] [address] Pharmacist Pharmacist 04/17/21 Rain Galaviz PA-C [address] [place] [address] [address] [place] [address] Physician Veneer Taping Machine Operator Dermatology 04/28/21 Tavia Wyatt MD [address] [place] [address] [address] [place] [address] Dermatology 07/14/21 Erica Farrell APRN TACK PICKER [address] [place], [place] 67[address] Nurse Practitioner Cardiovascular Disease 09/09/21 Rich Barrett MD [address] [facility] [place], [place] 140895 Physician Ophthalmology 01/21/22 Neil Kent MD [address] [place], [place] 164245 Dermatology 02/24/22 Diana Desir, [facility] [address] [place], [place] 420296 Assigned [facility] Pharmacist 04/07/22 Livan Sharif MD [address] [place], [place] 155035 Cardiovascular Disease 05/14/22 Catherine Cm MD [address] [facility] [place], [place] 984745 Cardiovascular Disease 07/21/22 Valery Veronica, PAUcheC [address] [place], [place] 405635 Physician Veneer Taping Machine Operator Dermatology 07/21/22 Brea Quinn APRN TACK PICKER [address] [place] [address] Nurse Practitioner Dermatology 09/21/22 Brea Quinn APRN TACK PICKER [address] [place] [address] Assigned Surgical Provider 10/09/22 05/01/24 [place] [address] [address] [facility] 300 [place] [address] Assigned Musculoskeletal Provider 10/09/22 05/01/24 Alfonso Renteria MD [address] [facility] 200 [place], [place] 588266 Assigned Neuroscience Provider 04/02/23 Radha Lomeli APRN TACK PICKER 6[address] [facility] [address] [place] [address] Assigned Heart and Vascular Provider 05/28/23 Jelena David OD [address] [facility] [place] [address] Ophthalmology 06/15/23 Esha Grimm PA-C [address] [place] [phone] Assigned PCP 07/16/23 Valery Veronica PA-C [address] [place] [address] 617525 Physician Veneer Taping Machine Operator Dermatology 09/19/23 Rey Tay MD [address] [place] [address] 744735 Gastroenterology 09/20/23 Rocky Zepeda DO [address] [place] [address] 814435 Physician Gastroenterology 09/20/23 Philip Dumont MD [address] [place], [place] 942535 Physician Ophthalmology 09/22/23 Meredith Carrera PA-C [address] [place] [address] [phone] Assigned Gastroenterology Provider 11/01/23 Neil Kent MD [address] [phone] Dermatology 11/02/23 [place] [address] RA[address] [place] [address] Neurological Surgery 12/26/23 Audrey Waite PA-C [address] [place] [address] 451195 Physician Veneer Taping Machine Operator Dermatology 02/28/24 documented as of this encounter
--- OUTSIDE RECORDS SUMMARY | 2024-05-27 08:45 | XMS_ITS | Encounter Summary ---
Author Organization [facility] Address [address] [place] [address] Care Team Providers Care Polymer Scientist Name Role Phone Diana Desir [facility] Unavailable Rain Galaviz PA-C Unavailable Tavia Wyatt MD Unavailable Unavailable Erica Farrell RESEARCH TEST ENGINE OPERATOR GROCERY STORE COURTESY CLERK Unavailable Rich Barrett MD Unavailable Neil Kent MD Unavailable ThangDiana [facility] Unavailable [phone] Livan Sharif MD Unavailable Catherine Cm MD Unavailable + Valery Veronica PA-C Unavailable [phone] Brea Quinn RESEARCH TEST ENGINE OPERATOR GROCERY STORE COURTESY CLERK Unavailable [phone] Brea Quinn RESEARCH TEST ENGINE OPERATOR GROCERY STORE COURTESY CLERK Unavailable [phone] Jose Francisco Johnson MD Unavailable Alfonso Renteria MD Unavailable + [phone] Esha Grimm PA-C Primary Care Provider [phone] Radha Lomeli RESEARCH TEST ENGINE OPERATOR GROCERY STORE COURTESY CLERK Unavailable [phone] Jelena David OD Unavailable Esha Grimm PA-C Unavailable [phone] Valery Veronica PA-C Unavailable [phone] Rey Tay MD Unavailable Rocky Zepeda DO Unavailable Philip Dumont MD Unavailable [phone] Meredith Carrera PA-C Unavailable [phone] Neil Kent MD Unavailable Juan Pablo Emmanuel MD Unavailable [phone] Audrey Waite PA-C Unavailable [phone] Encounter Details Date Type Department Care Team [...] [facility] or nondenominational services? 1 to 4 [...] Answer Date Recorded PHQ-2 Score 1 02/07/2024 [facility] [...] PM CDT Legal Sex Female 4:13 AM TAXICAB DRIVER Gender Identity Female 03/02/2021 5:45 PM CDT Sexual Orientation Straight 02/28/2020 12 :51 AM CDT documented as of this encounter Plan of Treatment Upcoming Encounters Date Type Department Care Team (Late st Contact Info) Description 05/31/2024 8:40 AM TAXICAB DRIVER Therapy Visit [facility] [address] [place] [phone] Ingris Thompson, PT [facility] [address] [place] [address] 05/31/2024 3:30 PM TAXICAB DRIVER Office Visit [facility] [address] [phone] Audrey Díaz, Herminia Koo MD [address] [place] [address] 06/04/2024 3:30 PM TAXICAB DRIVER Office Visit [address] [place] [phone] Jelena David, SONJA [address] [place] [address] [place] [address] 06/11/2024 10:30 AM TAXICAB DRIVER Appointment [facility] [address] [place] [address] Spec, Nurse Only Med 06/18/2024 2:50 PM TAXICAB DRIVER Therapy Visit [facility] [place] [address] [place] [address] [address] [place] [phone] Ingris Thompson, PT [facility] 516 [facility] 106 [place], [place] 0[address] 06/21/2024 2:00 PM TAXICAB DRIVER Office Visit [facility] [place] [address] [facility], [address] [place] [phone] [place] [address] [place], [place] 2080[address] Johnny Penn MD 6512 [facility] [place], [place] [address] 06/25/2024 8:30 AM TAXICAB DRIVER Office Visit [address] [phone] Valery Veronica PA-C [address] [place] [address] 779635 11/28/2024 7:45 AM CDT Virtual Visit [facility] [address] 4th [place] [phone] Meredith Carrera PA-C [address] [place] [address] 786175 documented as of this encounter Visit Diagnoses Not on filedocumented in this encounter Additional Health Concerns Assessment Noted Time PHQ-9 Depression Total Score: 3 02/07/20 24 9:33 AM CDT documented as of this encounter Care Teams Polymer Scientist Relationship Specialty Start Date End Date Esha Grimm PA-C [address] [place] [phone] PCP - General Family Medicine 05/04/23 Diana Desir, [facility] [address] [place] [address] Pharmacist Pharmacist 04/17/21 Rain Galaviz PA-C [address] [place] [address] [address] [place] [address] Physician Helpdesk Administrator Dermatology 04/28/21 Tavia Wyatt MD [address] [place] [address] DR AR[address] [facility] [place] [address] Dermatology 07/14/21 Erica Farrell, ARLENE GROCERY STORE COURTESY CLERK [address] [place], [place] [address] Nurse Practitioner Cardiovascular Disease 09/09/21 Rich Barrett MD 516 [facility] 9[address] [place], [place] 693285 Physician Ophthalmology 01/21/22 Neil Kent MD 500 [place], [place] 002625 Dermatology 02/24/22 Diana Desir, [facility] [address] [place] [address] Assigned MTM Pharmacist 04/07/22 Livan Sharif MD [address] [place] [address] Cardiovascular Disease 05/14/22 Catherine Cm MD [address]405 [facility] [address] [place] [address] Cardiovascular Disease 07/21/22 Valery Veronica, PAUcheC [address] [place] [address] Physician Helpdesk Administrator Dermatology 07/21/22 Brea Quinn APRN GROCERY STORE COURTESY CLERK [address] [place] [address] Nurse Practitioner Dermatology 09/21/22 Brea Quinn APRN GROCERY STORE COURTESY CLERK 64[address] [place] [address] Assigned Surgical Provider 10/09/22 05/01/24 [place] [address] [address] [facility] [address] [place] [address] Assigned Musculoskeletal Provider 10/09/22 05/01/24 Alfonso Renteria MD [address] [facility] 200 [place], [place] 105086 Assigned Neuroscience Provider 04/02/23 Radha Lomeli APRN GROCERY STORE COURTESY CLERK [address] [facility] [address] [place] [address] Assigned Heart and Vascular Provider 05/28/23 Jelena David OD [address] [facility] [place] [address] MD Ophthalmology 06/15/23 sEha Grimm PA-C [address] [place] [address] Assigned PCP 07/16/23 Valery Veronica PA-C [address] [place] [address] Physician Helpdesk Administrator Dermatology 09/19/23 Rey Tay MD [address] [place] [address] Gastroenterology 09/20/23 Rocky Zepeda DO [address] [place] [address] Physician Gastroenterology 09/20/23 Philip Dumont MD [address] [place] [address] Physician Ophthalmology 09/22/23 Meredith Carrera PA-C [address] [place] [address] Assigned Gastroenterology Provider 11/01/23 Neil Kent MD [address] 418070 Dermatology 11/02/23 [place] [address] [place] [address] Neurological Surgery 12/26/23 Audrey Waite PA-C 500 [place] [address] Physician Helpdesk Administrator Dermatology 02/28/24 documented as of this encounter
--- OUTSIDE RECORDS SUMMARY | 2024-05-27 08:45 | XMS_ITS | Encounter Summary ---
Author Organization [facility] Address [address] [place] [address] Care Team Providers Care Green Marketing Analyst Name Role Phone Diana Desir [facility] Unavailable Rain Galaviz PA-C Unavailable Tavia Wyatt MD Unavailable Unavailable Erica Farrell JAVA DEVELOPMENT MANAGER INSTALL AND REPAIR TECHNICIAN Unavailable Rich Barrett MD Unavailable Neil Kent MD Unavailable ThangDiana [facility] Unavailable [phone] Livan Sharif MD Unavailable Catherine Cm MD Unavailable + Valery Veronica PA-C Unavailable [phone] Brea Quinn JAVA DEVELOPMENT MANAGER INSTALL AND REPAIR TECHNICIAN Unavailable Brea Quinn JAVA DEVELOPMENT MANAGER INSTALL AND REPAIR TECHNICIAN Unavailable Jose Francisco Johnson MD Unavailable Alfonso Renteria MD Unavailable + [phone] Esha Grimm PA-C Primary Care Provider [phone] Radha Lomeli JAVA DEVELOPMENT MANAGER INSTALL AND REPAIR TECHNICIAN Unavailable [phone] Frankie Jelena Radha OD Unavailable [facility] [place] PA-C Unavailable [phone] Valery Veronica PA-C Unavailable Rey Tay MD Unavailable Rocky Zepeda DO Unavailable Philip Dumont MD Unavailable [phone] Meredith Carrera PA-C Unavailable Neil Kent MD Unavailable Juan Pablo Emmanuel MD Unavailable Audrey Waite PA-C Unavailable [phone] Reason for Visit * Reason Comments Urgent Care Cough for a month, s tarted getting bodyaches yesterday. Green phlegm. Encounter Details Date Type Department Care Team (Late st Contact Info) Description 04/09/2024 5:50 PM CDT Office Visit [facility] [place] [address] [place] [address] Matti David MD [address] [id number] Upper respiratory tract infection, unspecified type (Primary Dx) Social History Tobacco Use Types [...] week 03/28/2024 How often do you attend [facility] or voodoo services? 1 to 4 [...] exercise at this level? 30 min 03/28/2024 [place] Depression Scale Answer Date Recorded [place] Depression Score 5 01/14/2021 Last EPDS Self [...] in an overnight usp, or couch-surfing.) Yes 03/28/2024 Are you worried [...] PM CDT Legal Sex Female 4:13 AM SWITCHBOARD WIRE WORKER HELPER Gender Identity Female 03/02/2021 5:45 PM CDT Sexual Orientation Straight 02/28/2020 12 :51 AM CDT documented as of this encounter Last Filed Vital Signs Vital Sign Reading Time Taken Comments Blood Pressure 106/69 04/09/2024 5:40 PM CDT Pulse 68 04/09/2024 5:40 PM CDT Temperature 36.7 ??C (98.1 ??F) 04/09/2024 5:40 PM CD T Respiratory Rate - - Oxygen Saturation 98% 04/09/2024 5:40 PM CDT Inhaled Oxygen Concentration - - Weight - - Height - - Body Mass Index - - documented in this encounter Progress Notes * Matti David MD - 04/09/2024 5:50 PM CDT Assessment & Plan (J06.9) Upper respiratory tract infection, unspecified type (primary encounter diagnosis) Most consistent with uri/post viral cough Tessalon perles as needed. COVID pending Humidifer, honey Follow up in 10-14 days if not improving or sooner as needed No follow-ups on file. Matti David MD [facility] Subjective Kim Johnson is a 23 year old year old female who presents to clinic today for the following health issues: Patient presents with: Urgent Care: Cough for a month, started getting bodyaches yesterday. Green phlegm. This is a 23 yo female who presents with cough over the past several days. Dry in nature. Had been more productive with runny nose and post nasal drip but now lingering as a dry cough. No sob, cp, pleurisy, f/c. 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) Paroxysmal supraventricular tachycardia (H) SVT (supraventricular tachycardia) (H) Neck pain Current Outpatient Medications Medication Sig Dispense Refill Digestive Enzymes (DIGESTIVE ENZYME PO) ketoconazole (NIZORAL) [...] until healed then stop 80 g 2 clindamycin (CLEOCIN T) 1 % external lotion Apply topically 2 times daily 60 mL 1 Current Facility-Administered Medications Medication Dose Route Frequency Provider Last Rate Last Admin sodium chloride (PF) 0.9% PF flush 3 mL 3 mL Intravenous q1 min prn Fady Menon MD Past Medical History: Diagnosis Date Anxiety Chronic kidney disease stones, history of infections Depressive disorder Gastroesophageal reflux disease Psoriasis Seizure (H) 05/02/2019 no seizure since approx 2018 SVT (supraventricular tachycardia) (H) Social History reports that she quit smoking about 4 years ago. Her smoking use included other and cigarettes. Shehas been exposed to tobacco smoke. She uses smokeless tobacco. She reports current alcohol use. Shereports that she does not use drugs. Family History Problem Relation Age of Onset Heart Disease Maternal Grandfather Brain Tumor Sister Macular Degeneration No family hx of Glaucoma No family hx of Review of Systems Constitutional, HEENT, cardiovascular, pulmonary, GI, , musculoskeletal, neuro, skin, endocrine and psych systems are negative, except as otherwise noted. Objective BP 106/69 (BP Location: Right arm, Patient Position: Sitting, Cuff Size: Adult Large) Pulse 68 Temp 98.1 ??F (36.7 ??C) (Tympanic) LMP (LMP Unknown) SpO2 98% Physical Exam GENERAL: alert and no distress [...] normal PSYCH: mentation appears normal, affect normal/bright Influenza negative documented in this encounter Plan of Treatment Upcoming Encounters Date Type Department Care Team (Late st Contact Info) Description 05/31/2024 8:40 AM SWITCHBOARD WIRE WORKER HELPER Therapy Visit [address] [place] [phone] Ingris Thompson, PT [facility] [address] [place] [phone] 05/31/2024 3:30 PM SWITCHBOARD WIRE WORKER HELPER Office Visit [facility] [address] [address] Audrey Díaz, Herminia Koo MD [address] [place] [address] 06/04/2024 3:30 PM SWITCHBOARD WIRE WORKER HELPER Office Visit [address] [place] [phone] Jelena David, [address] [place] [address] [place] [address] 06/11/2024 10:30 AM SWITCHBOARD WIRE WORKER HELPER Appointment [facility] Respiratory Therapy [address] [place] [phone] Spec, Nurse Only Med 06/18/2024 2:50 PM SWITCHBOARD WIRE WORKER HELPER Therapy Visit [address] [place] [phone] Ingris Thompson, PT [facility] [address] 06/21/2024 2:00 PM SWITCHBOARD WIRE WORKER HELPER Office Visit [facility] Neurology Clinics - [address], [address] [place] [phone] [place] [address] [place] [address] Johnny Penn MD [address] [place] [address] 06/25/2024 8:30 AM SWITCHBOARD WIRE WORKER HELPER Office Visit [address] [phone] Valery Veronica PA-C [address] [place] [address] 11/28/2024 7:45 AM CDT Virtual Visit [facility] [address] 4th [place] [phone] Meredith Carrera PA-C [address] [place] [address]4915 documented as of this encounter Procedures Procedure Name Priority Date/Time Associated Diagnosis Comments COVID-19 VIRUS (CORONAVIRUS) BY PCR Routine 04/09/2024 6:06 PM CDT INFLUENZA A/B ANTIGEN Routine 04/09/2024 6:06 PM CDT documented in this encounter Results * Influenza A/B antigen (04/09/2024 6:06 PM CDT) Influenza A antigen Negative Negative 04/09/2024 6:31 [...] - MICRO G ENERAL ORDERABLES Final Result LABORATORY [facility] [place] [facility] [address] [facility] (no room number, 1st floor of clinic) [place] [address], [facility] * Symptomatic COVID-19 Virus (Coronavirus) [...] using the Aptima SARS-CoV-2 Assay on the StreamSpec Instrument System. Additional information about this Emergency [...] COVID-19. This test was validated by the [facility] Infectious Diseases Diagnostic Laboratory. This laboratory is certified under the Clinical Laboratory Improvement Amendments of 1988 (CLIA-88) as qualified to perform high complexity laboratory testing. us Matti David MD LAB - MICRO G ENERAL ORDERABLES Final Result [facility] Inf. Diseases Diag. Lab [address] [facility], [address] [place] [address] documented in this encounter Visit Diagnoses Diagnosis Upper respiratory tract infection, unspecified type- Primary documented in this encounter Additional Health Concerns Infection Onset Date Last Indicated Resolved Time Rule Out COVID-19 04/09/2024 04/09/2024 04/10/2024 6:48 PM CDT Assessment Noted Time PHQ-9 Depression Total Score: 3 02/07/20 24 9:33 AM CDT documented as of this encounter Care Teams Green Marketing Analyst Relationship Specialty Start Date End Date Esha Grimm PA-C [address] [place] [phone] PCP - General Family Medicine 05/04/23 Diana Desir, [facility] [address] [place] [address] Pharmacist Pharmacist 04/17/21 Rain Galaviz PA-C [address] [place] [address] [address] [place] [address] Physician Creative Writing Teacher Dermatology 04/28/21 Tavia Wyatt MD [address] [place] [address] [address] [place] [address] Dermatology 07/14/21 Erica Farrell APRN INSTALL AND REPAIR TECHNICIAN [address] [facility] [address] [place] [address] Nurse Practitioner Cardiovascular Disease 09/09/21 Rich Barrett MD [address] [facility]IC [address] [place] [address] Physician Ophthalmology 01/21/22 Neil Kent MD 500 [place] [address] Dermatology 02/24/22 Diana Desir, [facility] [address] [place] [address] Assigned [place] Pharmacist 04/07/22 Livan Sharif MD [address], [facility]00 [place] [address] Cardiovascular Disease 05/14/22 Catherine Cm MD [address] [facility] [place], [place] 0[address] Cardiovascular Disease 07/21/22 Valery Veronica, PAUcheC 9 [place] [address] Physician Creative Writing Teacher Dermatology 07/21/22 Brea Quinn APRN INSTALL AND REPAIR TECHNICIAN 500 [place] [address] Nurse Practitioner Dermatology 09/21/22 Brea Quinn APRN INSTALL AND REPAIR TECHNICIAN [address] [place] [address] Assigned Surgical Provider 10/09/22 05/01/24 [place] [address] [place] [address] [address] Assigned Musculoskeletal Provider 10/09/22 05/01/24 Alfonso Renteria MD [address] [facility] 200 [place] [address] Assigned Neuroscience Provider 04/02/23 Radha Lomeli APRN INSTALL AND REPAIR TECHNICIAN [address] [place] [address] Assigned Heart and Vascular Provider 05/28/23 Jelena David OD [address] [facility] [place] [address] MD Ophthalmology 06/15/23 Esha Grimm PA-C [address] [place] [phone] Assigned PCP 07/16/23 Valery Veronica PA-C [address] [place] [address] 057475 Physician Creative Writing Teacher Dermatology 09/19/23 Rey Tay MD [address] [place] [address] 484675 MD Gastroenterology 09/20/23 Rocky Zepeda DO [address] [place] [address]355 Physician Gastroenterology 09/20/23 Philip Dumont MD [address] [place] [address] 367975 Physician Ophthalmology 09/22/23 Meredith Carrera PA-C [address] [place] [address] 579285 Assigned Gastroenterology Provider 11/01/23 Neil Kent MD [address] [address] Dermatology 11/02/23 [place] [address] [place] [address] [phone] Neurological Surgery 12/26/23 Audrey Waite, PAUcheC 500 [place], [place] [address] Physician Creative Writing Teacher Dermatology 02/28/24 documented as of this encounter
--- OUTSIDE RECORDS SUMMARY | 2024-05-27 08:45 | XMS_ITS | Encounter Summary ---
Author Organization [facility] Address [address] [place] [address] Care Team Providers Care Police Service Technician Name Role Phone Diana Desir [facility] Unavailable Rain Galaviz PA-C Unavailable Tavia Wyatt MD Unavailable Unavailable Erica Farrell MIXED LIVESTOCK FARMER ASSISTANT SECRETARY Unavailable Rich Barrett MD Unavailable Neil Kent MD Unavailable ThangDiana [facility] Unavailable [phone] Livan Sharif MD Unavailable Catherine Cm MD Unavailable + Valery Veronica PA-C Unavailable [phone] Brea Quinn MIXED LIVESTOCK FARMER ASSISTANT SECRETARY Unavailable Brea Quinn MIXED LIVESTOCK FARMER ASSISTANT SECRETARY Unavailable Jose Francisco Johnson MD Unavailable Alfonso Renteria MD Unavailable + [phone] Esha Grimm PA-C Primary Care Provider [phone] Radha Lomeli MIXED LIVESTOCK FARMER ASSISTANT SECRETARY Unavailable [phone] Jelena David OD Unavailable Esha Grimm PA-C Unavailable [phone] Valery Veronica PA-C Unavailable [phone] Rey Tay MD Unavailable Rocky Zepeda DO Unavailable Philip Dumont MD Unavailable [phone] Meredith Carrera PA-C Unavailable [phone] Neil Kent MD Unavailable Juan Pablo Emmanuel MD Unavailable [phone] Audrey Waite PA-C Unavailable [phone] Encounter Details Date Type Department Care Team (Latest Contact Info) Description 04/09/2024 Travel Social History Tobacco Use Types Packs/Day [...] or neighbors? Three times a week 03/28/20 24 How often do you get togethe [...] PHQ-2 Score 1 02/07/2024 [facility] - Occupational Stress [...] exercise at this level? 30 min 03/28/2024 [place] Depression Scale Answer Date Recorded [place] Depression Score 5 01/14/2021 Last EPDS [...] in an overnight chcf, or couch-surfing.) Yes 03/28/2024 Are you worried [...] PM CDT Legal Sex Female 4:13 AM GUIDE WINDER Gender Identity Female 03/02/2021 5:45 PM CDT Sexual Orientation Straight 02/28/2020 12 :51 AM CDT documented as of this encounter Plan of Treatment Upcoming Encounters Date Type Department Care Team (Late st Contact Info) Description 05/31/2024 8:40 AM GUIDE WINDER Therapy Visit [facility] [address] [place] [phone] Ingris Thompson, PT [facility] [address] [place] [address] 106 [place], [place] 0[address]85 05/31/2024 3:30 PM GUIDE WINDER Office Visit [facility] Specialty [address] [phone] Audrey Díaz, Herminia Koo MD [address] [place] [address] 06/04/2024 3:30 PM GUIDE WINDER Office Visit [address] [place] [phone] Jelena David, SONJA [address] [place] [address] [place] [address] 06/11/2024 10:30 AM GUIDE WINDER Appointment [facility] Respiratory Therapy [address] [place] [address] Spec, Nurse Only Med 06/18/2024 2:50 PM GUIDE WINDER Therapy Visit [facility] [place] [address] [facility] [address] [place] [phone] Ingris Thompson, PT [facility] [address] [facility] 106 [place], [place] [address] 06/21/2024 2:00 PM GUIDE WINDER Office Visit [facility] - [place] [address] [facility], [address] [place] [phone] [place] [address] [place], [place] 5158[address] Johnny Penn MD [address] [place], [place] 413295 06/25/2024 8:30 AM GUIDE WINDER Office Visit [address] [address] Valery Veronica PA-C [address] [place] [address] 642525 11/28/2024 7:45 AM CDT Virtual Visit [facility] [address] 4th [place] [phone] Meredith Carrera PA-C [address] [place] [address] 848355 documented as of this encounter Visit Diagnoses Not on filedocumented in this encounter Additional Health Concerns Infection Onset Date Last Indicated Resolved Time Rule Out COVID-19 04/09/2024 04/09/202404/10/2024 6:48 PM CDT Assessment Noted Time PHQ-9 Depression Total Score: 3 02/07/20 24 9:33 AM CDT documented as of this encounter Care Teams Police Service Technician Relationship Specialty Start Date End Date Esha Grimm PA-C [address] [place] [address] PCP - General Family Medicine 05/04/23 Diana Desir, [facility] [address] [place] [address] Pharmacist Pharmacist 04/17/21 Rain Galaviz PA-C [address] [place] [address] [address] [place] [address] Physician Baseball Inspector Dermatology 04/28/21 Tavia Wyatt MD [address] [place] [address] [address] [place] [address] Dermatology 07/14/21 Erica Farrell APRN ASSISTANT SECRETARY [address] [facility] [address] [place] [address] Nurse Practitioner Cardiovascular Disease 09/09/21 Rich Barrett MD [address] [place] [address] [address] [place], [place] 648885 Physician Ophthalmology 01/21/22 Neil Kent MD [address] [place] [address] 569785 Dermatology 02/24/22 Diana Desir, [facility] [address] [place] [address] Assigned MTM Pharmacist 04/07/22 Livan Sharif MD [address] [facility] [address] [place] [address] Cardiovascular Disease 05/14/22 Catherine Cm MD [address] [facility]00 [place] [address] Cardiovascular Disease 07/21/22 Valery Veronica, PA-C [address] [place] [address] Physician Baseball Inspector Dermatology 07/21/22 Brea Quinn APRN ASSISTANT SECRETARY [address] [place] [address] Nurse Practitioner Dermatology 09/21/22 Brea Quinn APRN ASSISTANT SECRETARY [address] [place] [address] Assigned Surgical Provider 10/09/22 05/01/24 [place] [address] [address] Assigned Musculoskeletal Provider 10/09/22 05/01/24 Alfonso Renteria MD [address] [address] Assigned Neuroscience Provider 04/02/23 Radha Lomeli APRN ASSISTANT SECRETARY [address] [place] [address] Assigned Heart and Vascular Provider 05/28/23 [place] [address] [facility] [place] [address] MD Ophthalmology 06/15/23 Esha Grimm PA-C [address] [place] [phone] Assigned PCP 07/16/23 Valery Veronica PA-C [address] [place] [address] 905385 Physician Baseball Inspector Dermatology 09/19/23 Rey Tay MD [address] [place] [address] 361015 MD Gastroenterology 09/20/23 Rocky Zepeda DO [address] [place] [address] 071445 Physician Gastroenterology 09/20/23 Philip Dumont MD [address] [place] [address] 617065 Physician Ophthalmology 09/22/23 Meredith Carrera PA-C [address] [place] [address] 329095 Assigned Gastroenterology Provider 11/01/23 Neil Kent MD [address] 326550 Dermatology 11/02/23 [place] [address] [address] Neurological Surgery 12/26/23 Audrey Waite PA-C 500 [place], [place] 0489[address] Physician Baseball Inspector Dermatology 02/28/24 documented as of this encounter
--- OUTSIDE RECORDS SUMMARY | 2024-05-27 08:45 | XMS_ITS | Encounter Summary ---
Author Organization [facility] Address [address] [place] [address] Care Team Providers Care Bench Lay Out Technician Name Role Phone Diana Desir [facility] Unavailable [phone] Rain Galaviz PA-C Unavailable Tavia Wyatt MD Unavailable Unavailable Erica Farrell ROLLER MILL OPERATOR FINISH PATCHER Unavailable Rich Barrett MD Unavailable Neil Kent MD Unavailable ThangDiana [facility] Unavailable [phone] Livan Sharif MD Unavailable Catherine Cm MD Unavailable + Valery Veronica PA-C Unavailable [phone] Brea Quinn ROLLER MILL OPERATOR FINISH PATCHER Unavailable Brea Quinn ROLLER MILL OPERATOR FINISH PATCHER Unavailable Jose Francisco Johnson MD Unavailable Alfonso Renteria MD Unavailable + [phone] Esha Grimm PA-C Primary Care Provider [phone] Radha Lomeli ROLLER MILL OPERATOR FINISH PATCHER Unavailable [phone] Jelena David OD Unavailable Jesus Grimmyllincoln Medina PA-C Unavailable [phone] Valery Veronica PA-C Unavailable Rey Tay MD Unavailable Rocky Zepeda DO Unavailable Philip Dumont MD Unavailable Meredith Carrera PA-C Unavailable Neil Kent MD Unavailable Juan Pablo Emmanuel MD Unavailable Audrey Waite PA-C Unavailable Encounter Details Date Type Department Care Team (Late st Contact Info) Description 04/07/2024 2:42 AM CDT - 04/07/2024 3:31 AM CDT Emergency [facility] Emergency Dept [address] [place] [address] Augustus Daugherty MD [facility] [address] [place], [place] [address] Palpitations; Hx of supraventricular tachycardia; Alcohol use Discharge Disposition: Home or Self Care Social [...] week 03/28/2024 How often do you attend [facility]? 1 to 4 times [...] Date Recorded PHQ-2 Score 1 02/07/2024 [facility] ional [...] exercise at this level? 30 min 03/28/2024 [place]imax Depression Scale Answer Date Recorded [place]ax Depression Score 5 01/14/2021 Last EPDS Self [...] in an overnight custodial, or couch-surfing.) Yes 03/28/2024 Are you worried [...] PM CDT Legal Sex Female 4:13 AM ELECTRIC MOTOR REPAIRER Gender Identity Female 03/02/2021 5:45 PM CDT Sexual Orientation Straight 02/28/2020 12 :51 AM CDT documented as of this encounter Last Filed Vital Signs Vital Sign Reading Time Taken Comments Blood Pressure 129/86 04/07/2024 2:41 AM CDT Pulse 76 04/07/2024 2:41 AM CDT Temperature 36.6 ??C (97.9 ??F) 04/07/2024 2:41 AM CD T Respiratory Rate 18 04/07/2024 2:41 AM CDT Oxygen Saturation 100% 04/07/2024 2:41 AM CDT Inhaled Oxygen Concentration - - Weight 86.2 kg (190 lb) 04/07/2024 2:41 AM CDT Height 167.6 cm (5' 6) 04/07/2024 2:41 AM CDT Body Mass Index 30.67 04/07/2024 2:41 AM CDT documented in this encounter Discharge Instructions * Discharge Instructions* Augustus Daugherty MD - 04/07/2024 3:21 AM CDT I would limit your caffeine, and avoid alcohol given your history of SVT. You should drink plenty fluids to stay well-hydrated. Certainly return the emergency room should you develop chest pain, chest pressure or passout. documented in this encounter Medications at Time [...] by mouth daily 45 tablet 1 11/22/2023 4 documented as of this encounter ED Notes * Fartun Cline RN - 04/07/2024 3:31 AM CDT Pt discharged, AVS given, Health teaching done, Offered wheelchair pt declines. * Fartun Cline RN - 04/07/2024 2:50 AM CDT Pt Breath test is 0.03. MD aware. * Augustus Daugherty MD - 04/07/2024 2:44 AM CDT Emergency Department Note History of Present Illness Chief Complaint No chief complaint on file. HPI Kim Johnson is a 23 year old female with a history of SVT, seizures, and CKD who presents to theED for evaluation of alcohol intoxication and palpitations. The patient states she had 6 alcoholic drinks tonight and had sudden onset dizziness, headache, and nausea with palpitations and tachycardia. These symptoms have resolved but she feels intoxicated. Notes a history of SVT that she has had an ablation for and states her symptoms are consistent with past episodes of SVT. Reports recently starting lorazepam which she feels may be contributing to her condition. Denies medical concerns. Independent Historian None Review of External Notes None Past Medical History Medical History and Problem List Eosinophilic esophagitis Tobacco abuse Anxiety Depression SVT Psoriasis Seizure CKD Medications Albuterol Famotidine Carafate Mirena Ativan Toprol Omeprazole Paxil Surgical History SVT ablation Unspecified genitourinary surgery Physical Exam Patient Vitals for the past 24 hrs: BP Temp Temp src Pulse Resp SpO2 Height Weight 04/07/24 0241 129/86 97.9 ??F (36.6 ??C) Temporal 76 18 100 % 1.676 m (5' 6) 86.2 kg (190 lb) Physical Exam Constitutional: Alert, attentive, GCS 15 Eyes: EOM are normal, anicteric, conjugate gaze CV: distal extremities warm, well perfused Chest: Non-labored breathing on RA GI: non tender. No distension. No guarding or rebound. Neurological: Alert, attentive, moving all extremities equally. Skin: Skin is warm and dry. Diagnostics Lab Results Labs Ordered and Resulted from Time of ED Arrival to Time of ED Departure - No data to display Imaging No orders to display EKG ECG taken at 0306, ECG read at 0310 Sinus rhythm No significant change as compared to prior, dated 01/11/24. Rate 70 bpm. PA interval 164 ms. QRS duration 96 ms. QT/QTc 398/429 ms. P-R-T axes 46 67 48. Independent Interpretation None ED Course Medications Administered Medications - No data to display Procedures Procedures Discussion of Management None ED Course ED Course as of 04/07/24 0331 Sat Apr 07, 2024 0320 I obtained history and performed a physical exam as noted above. Additional Documentation None Medical Decision Making / Diagnosis [facility] Diagnoses: None MIPS None MDM Kim Johnson is a 23 year old female past medical history significant for SVT status post ablation, anxiety, CKD, seizures with frequent ER visits typically for palpitations, chest pain concerns for SVT. She reports having multiple alcohol drinks tonight feeling intoxicated however breathalyzer here 0.3 not consistent with EtOH intoxication, she is taking Paxil which can accentuate the effects of alcohol. She also reported some brief palpitations that resolved, EKG here is unremarkable. I recommended abstinence from alcohol, adequate hydration, avoidance of caffeine and PCP follow-up. Return precautions reviewed and she was discharged to care of her friend who is sober to drive. Disposition The patient was discharged. Diagnosis ICD-10-CM 1. Palpitations R00.2 2. Hx of supraventricular tachycardia Z86.79 3. Alcohol use Z78.9 Augustus Daugherty MD [facility] [employer] [facility] 3:31 AM 04/07/24 Scribe Disclosure: Lauren Denis, am serving as a scribe at 2:44 AM on 04/07/2024 to document services personally performed by Augustus Daugherty MD based on my observations and the provider's statements to me. Augustus Daugherty MD 04/07/24 0331 * Yessy Kennedy RN - 04/07/2024 2:42 AM CDT Bed: ED07 Expected date: Expected time: Means of arrival: Comments: MH only * Vikas Torres RN - 04/07/2024 2:40 AM CDT Here for concern of alcohol intoxication associated with headache, nausea, dizziness, palpitations.Stated history of SVT with ablation. ABCs intact. Triage Assessment (Adult) Row Name 04/07/24 0240 Triage Assessment Airway WDL WDL Respiratory WDL Respiratory WDL WDL Cardiac WDL Cardiac WDL WDL documented in this encounter Plan of Treatment Upcoming Encounters Date Type Department Care Team (Late st Contact Info) Description 05/31/2024 8:40 AM ELECTRIC MOTOR REPAIRER Therapy Visit [facility] [address] [place] [phone] Ingris Thompson, PT [facility] [address] [place] [address] [address] [place] [address] 05/31/2024 3:30 PM ELECTRIC MOTOR REPAIRER Office Visit [facility] [address] [phone] Audrey Díaz, Herminia Koo MD [address] [place] [address] [id number] 06/04/2024 3:30 PM ELECTRIC MOTOR REPAIRER Office Visit [place] [address] [facility] [address] [place] [phone] Jelena David, [address] [place] [address] [place] K[place] [address] 06/11/2024 10:30 AM ELECTRIC MOTOR REPAIRER Appointment [facility] Respiratory Therapy [address] [place] [address] Spec, Nurse Only Med 06/18/2024 2:50 PM ELECTRIC MOTOR REPAIRER Therapy Visit [facility] [address] [place] [phone] Ingris Thompson, PT [facility] [address] [facility] 106 [place], [place] [address] 06/21/2024 2:00 PM ELECTRIC MOTOR REPAIRER Office Visit [facility] [address] [place] [address] [address] [place] [phone] [place] [address] [place] [address] Johnny Penn MD [address] [place], [place] [address]70[address] 06/25/2024 8:30 AM ELECTRIC MOTOR REPAIRER Office Visit [address] [phone] Valery Veronica, ROVERTO [address] [place] [address] 11/28/2024 7:45 AM CDT Virtual Visit [facility] [address] [place] [phone] Meredith Carrera PA-C [address] [place] [address] [phone] documented as of this encounter Procedures Procedure Name Priority Date/Time Associated Diagnosis Comments EKG 12-LEAD, TRACING ONLY STAT 04/07/2024 3:06 AM CDT documented in this encounter Results * EKG 12 lead (04/07/2024 3:06 AM CDT) Systolic Blood Pressure mmHg RADIOLOGY RESULTS Diastolic Blood Pressure mmHg RADIOLOGY RESULTS Ventricular Rate 70 BPM RAD IOLOGY RESULTS Atrial Rate 70 BPM RADIOLOG Y RESULTS PA Interval 164 ms RADIOLOG Y RESULTS QRS Duration 96 ms RADIOLO GY RESULTS QT 398 ms RADIOLOGY RESULTS QTc 429 ms RADIOLOGY RESULTS P [place] 46 degrees RADIOLOGY RESULTS R AXIS 67 degrees RADIOLOGY RESULTS T [place] 48 degrees RADIOLOGY RESULTS Interpretation ECG Sinus rhythm Normal ECG When compared with ECG of 11-Jan-2024 09:55, No significant change was found Confirmed by - EMERGENCY ROOM, PHYSICIAN ([id number]), editor & co founder KEYLA MERIDA ([id number]) on 04/09/2024 7:15:00 AM RADIOLOGY RESULTS 04/07/2024 3:06 AM CDT 04/09/2024 7:15 AM CDT us Augustus Daugherty MD ECG ORDERABLES Edited Re sult - Final RADIOLOGY RESULTS documented in this encounter Visit Diagnoses Diagnosis Palpitations Hx of supraventricular tachycardia Personal history of other diseases of circulatory system Alcohol use Other problems related to lifestyle documented in this encounter Additional Health Concerns Assessment Noted Time PHQ-9 Depression Total Score: 3 02/07/20 24 9:33 AM CDT documented as of this encounter Care Teams Bench Lay Out Technician Relationship Specialty Start Date End Date Esha Grimm PA-C [address] [place] [phone] PCP - General Family Medicine 05/04/23 Diana Desir [facility] [address] [facility] [address] Pharmacist Pharmacist 04/17/21 Rain Galaviz PA-C [address] [place] [address] [address] [facility] [place] [address] Physician Frozen Yogurt Maker Dermatology 04/28/21 Tavia Wyatt MD [address] [place] [address] [address] [place] [address] Dermatology 07/14/21 Erica Farrell APRN FINISH PATCHER [address] [place] [address] Nurse Practitioner Cardiovascular Disease 09/09/21 Rich Barrett MD [address] [place] [address] 235965 Physician Ophthalmology 01/21/22 Neil Kent MD [address] [place] [address] [phone] Dermatology 02/24/22 [facility] [address] [place] [address] 130276 Assigned [place] Pharmacist 04/07/22 Livan Sharif MD [address], [facility] [place] 25[address] Cardiovascular Disease 05/14/22 Catherine Cm MD [address] [facility]00 [place] [address] Cardiovascular Disease 07/21/22 Valery Veronica PA-C [address] [place] [address] Physician Frozen Yogurt Maker Dermatology 07/21/22 Brea Quinn APRN FINISH PATCHER [address] [place] [address] Nurse Practitioner Dermatology 09/21/22 Brea Quinn APRN FINISH PATCHER [address] [place] [address] Assigned Surgical Provider 10/09/22 05/01/24 [place] [address] [address] Assigned Musculoskeletal Provider 10/09/22 05/01/24 Alfonso Renteria MD [address] 599[address] Assigned Neuroscience Provider 04/02/23 Radha Lomeli APRN FINISH PATCHER [address] [place] [id number] [place] [address] Assigned Heart and Vascular Provider 05/28/23 Jelena David OD [address] [place] [address] Ophthalmology 06/15/23 Esha Grimm PA-C [address] [place] [phone] Assigned PCP 07/16/23 Valery Veronica PA-C [address] [place] [address] Physician Frozen Yogurt Maker Dermatology 09/19/23 Rey Tay MD 9 [place] [address] MD Gastroenterology 09/20/23 Rocky Zepeda DO [address] [place] [address] Physician Gastroenterology 09/20/23 Philip Dumont MD 6 [place] [address] Physician Ophthalmology 09/22/23 Meredith Carrera PA-C 9 [place] [address] Assigned Gastroenterology Provider 11/01/23 Neil Kent MD [address] [address] Dermatology 11/02/23 [place] [address] [place] [address] Neurological Surgery 12/26/23 Audrey Waite PA-C [address] [place] [address] Physician Frozen Yogurt Maker Dermatology 02/28/24 documented as of this encounter
--- OUTSIDE RECORDS SUMMARY | 2024-05-27 08:45 | XMS_ITS | Encounter Summary ---
Author Organization [facility] Address [address] [place] [address] Care Team Providers Care Fagot Maker Name Role Phone Diana Desir [facility] Unavailable Rain Galaviz PA-C Unavailable Tavia Wyatt MD Unavailable Unavailable Erica Farrell SKEIN WINDING OPERATOR FASHION ADVISER Unavailable Rich Barrett MD Unavailable Neil Kent MD Unavailable ThangDiana [facility] Unavailable [phone] Livan Sharif MD Unavailable Catherine Cm MD Unavailable + Valery Veronica PA-C Unavailable [phone] Brea Quinn SKEIN WINDING OPERATOR FASHION ADVISER Unavailable Brea Quinn SKEIN WINDING OPERATOR FASHION ADVISER Unavailable [phone] Jose Francisco Johnson MD Unavailable Alfonso Renteria MD Unavailable + [phone] Esha Grimm PA-C Primary Care Provider Radha Lomeli SKEIN WINDING OPERATOR FASHION ADVISER Unavailable [phone] Jelena David OD Unavailable Esha Grimm PA-C Unavailable [phone] Valery Veronica PA-C Unavailable [phone] Rey Tay MD Unavailable Rocky Zepeda DO Unavailable Philip Dumont MD Unavailable [phone] Meredith Carrera PA-C Unavailable [phone] Neil Kent MD Unavailable Juan Pablo Emmanuel MD Unavailable [phone] Audrey Waite PA-C Unavailable [phone] Encounter Details Date Type Department Care Team (Latest Contact Info) Description 03/30/2024 Travel Social History Tobacco Use Types Packs/Day [...] Answer Date Recorded PHQ-2 Score 1 02/07/2024 [facility] - Occupational Stress Questionnaire Answer Date Recorded [...] exercise at this level? 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 Gender Identity Female 03/02/2021 5:45 PM CDT Sexual Orientation Straight 02/28/2020 12 :51 AM CDT documented as of this encounter Plan of Treatment Upcoming Encounters Date Type Department Care Team (Late st Contact Info) Description 05/31/2024 8:40 AM WAREHOUSE TECHNICIAN Therapy Visit [facility] [address] [place] [phone] Ingris Thompsno, PT [facility] [address] [place] [address] 106 [place], [place] 140575 05/31/2024 3:30 PM WAREHOUSE TECHNICIAN Office Visit [facility] Specialty [address] [phone] Audrey Díaz, Herminia Koo MD [address] [place] [address] 06/04/2024 3:30 PM WAREHOUSE TECHNICIAN Office Visit [address] [place] [phone] Jelena David, SONJA [address] [place] [address] [place] K[place] [address] 06/11/2024 10:30 AM WAREHOUSE TECHNICIAN Appointment [facility] Respiratory Therapy [address] [place] [address] Spec, Nurse Only Med 06/18/2024 2:50 PM WAREHOUSE TECHNICIAN Therapy Visit [facility] [place] [address] [facility] [address] [place] [phone] Ingris Thompson, PT [facility] [address] [facility] 106 [place], [place] [address] 06/21/2024 2:00 PM WAREHOUSE TECHNICIAN Office Visit [facility] [place] [address] [facility], [address] [place] [phone] [place] [address] [place], [place] [address] Johnny Penn MD [address] [place], [place] 6[address] 06/25/2024 8:30 AM WAREHOUSE TECHNICIAN Office Visit [address] [address] Valery Veronica, PAUcheC [address] [place] [address] 901335 11/28/2024 7:45 AM CDT Virtual Visit [facility] [address] 4th [place] [phone] Meredith Carrera, PAUcheC [address] [place] [address] 618935 documented as of this encounter Visit Diagnoses Not on filedocumented in this encounter Additional Health Concerns Assessment Noted Time PHQ-9 Depression Total Score: 3 02/07/20 24 9:33 AM CDT documented as of this encounter Care Teams Fagot Maker Relationship Specialty Start Date End Date Esha Grimm PA-C [address] [place] [address] PCP - General Family Medicine 05/04/23 Diana Desir, [facility] [address] [place] [address] Pharmacist Pharmacist 04/17/21 Rain Galaviz PA-C [address] [place] [address] [address] [place] [address] Physician Equipment Oiler Dermatology 04/28/21 Tavia Wyatt MD [address] [place] [address] [address] [place] [place] [address] Dermatology 07/14/21 Erica Farrell APRN FASHION ADVISER [address] [facility] [address] [place] [address] Nurse Practitioner Cardiovascular Disease 09/09/21 Rich Barrett MD [address] [facility] 9[address] [place], [place] 348925 Physician Ophthalmology 01/21/22 Neil Kent MD [address] [place], [place] 247245 Dermatology 02/24/22 Diana Desir, [facility] [address] [place] [address] Assigned MTM Pharmacist 04/07/22 Livan Sharif MD [address] [facility] [address] [place] [address] Cardiovascular Disease 05/14/22 Catherine Cm MD [address] [facility] [address] [place] [address] Cardiovascular Disease 07/21/22 Valery Veronica, PA-C [address] [place] [address] 382545 Physician Equipment Oiler Dermatology 07/21/22 Brea Quinn APRN FASHION ADVISER 500 [place], [place] 976875 Nurse Practitioner Dermatology 09/21/22 Brea Quinn APRN FASHION ADVISER 6401 [place] [address] Assigned Surgical Provider 10/09/22 05/01/24 [place] [address] [address] [facility] 300 [place] [address] Assigned Musculoskeletal Provider 10/09/22 05/01/24 Alfonso Renteria MD [address] [facility] 200 [place], [place] 135186 Assigned Neuroscience Provider 04/02/23 Radha Lomeli APRN FASHION ADVISER [address] [place] [address] Assigned Heart and Vascular Provider 05/28/23 Jelena David OD [address] [facility] [place] [address] Ophthalmology 06/15/23 Esha Grimm PA-C [address] [place] [address]83 Assigned PCP 07/16/23 Valery Veronica PA-C [address] [place] [address] 810595 Physician Equipment Oiler Dermatology 09/19/23 Rey Tay MD [address] [place] [address] MD Gastroenterology 09/20/23 Rocky Zepeda DO [address] [place] [address] Physician Gastroenterology 09/20/23 Philip Dumont MD [address] [place] [address] 364775 Physician Ophthalmology 09/22/23 Meredith Carrera PA-C [address] [place] [address] Assigned Gastroenterology Provider 11/01/23 Neil Kent MD [address] 235[address] Dermatology 11/02/23 [place] [address] [place], [place] 033087 Neurological Surgery 12/26/23 Audrey Waite PA-C [address] [place], [place] 733[address] Physician Equipment Oiler Dermatology 02/28/24 documented as of this encounter
--- OUTSIDE RECORDS SUMMARY | 2024-05-27 08:45 | XMS_ITS | Encounter Summary ---
Author Organization [place] Address [address] [place] [address] Care Team Providers Care Histology Aide Name Role Phone Diana Desir [facility] Unavailable Rain Galaviz PA-C Unavailable [phone] Tavia Wyatt MD Unavailable Unavailable Erica Farrell CLEARING SUPERVISOR PHYSICAL DIRECTOR Unavailable Rich Barrett MD Unavailable Neil Kent MD Unavailable ThangDiana [facility] Unavailable [phone] Livan Sharif MD Unavailable Catherine Cm MD Unavailable + Valery Veronica PA-C Unavailable [phone] Brea Quinn CLEARING SUPERVISOR PHYSICAL DIRECTOR Unavailable [phone] Brea Quinn CLEARING SUPERVISOR PHYSICAL DIRECTOR Unavailable Jose Francisco Johnson MD Unavailable Alfonso Renteria MD Unavailable + [phone] Esha Grimm PA-C Primary Care Provider Radha Lomeli CLEARING SUPERVISOR PHYSICAL DIRECTOR Unavailable [phone] Jelena David OD Unavailable Esha Grimm PA-C Unavailable [phone] Valery Veronica PA-C Unavailable [phone] Rey Tay MD Unavailable Rocky Zepeda DO Unavailable Philip Dumont MD Unavailable [phone] Meredith Carrera PA-C Unavailable [phone] Neil Kent MD Unavailable Juan Pablo Emmanuel MD Unavailable [phone] Audrey Waite PA-C Unavailable [phone] Encounter Details Date Type Department Care Team (Latest Contact Info) Description 03/28/2024 Travel Social History Tobacco Use Types Packs/Day [...] PHQ-2 Score 1 02/07/2024 [facility] - Occupational [...] exercise at this level? 30 min 03/28/2024 [place] Depression Scale Answer Date Recorded [place] Depression Score 5 01/14/2021 Last EPDS Self [...] PM CDT Legal Sex Female 4:13 AM BOOSTER ASSEMBLER Gender Identity Female 03/02/2021 5:45 PM CDT Sexual Orientation Straight 02/28/2020 12 :51 AM CDT documented as of this encounter Plan of Treatment Upcoming Encounters Date Type Department Care Team (Late st Contact Info) Description 05/31/2024 8:40 AM BOOSTER ASSEMBLER Therapy Visit [facility] Rehabilitation Services [address] [place] [phone] Ingris Thompson, PT [facility] [address] [place] [address] 106 [place], [place] 87[address] 05/31/2024 3:30 PM BOOSTER ASSEMBLER Office Visit [facility] Specialty [address] [phone] Audrey Díaz, Herminia Koo MD [address] [place] [address] 06/04/2024 3:30 PM BOOSTER ASSEMBLER Office Visit [address] [place] [phone] Jelena David, SONJA [address] [place] [address] [place] [address] 06/11/2024 10:30 AM BOOSTER ASSEMBLER Appointment [facility] Res[facility] Therapy [address] [place] [address] Spec, Nurse Only Med 06/18/2024 2:50 PM BOOSTER ASSEMBLER Therapy Visit [facility] [place] [address] [facility] [address] [place] [phone] Ingris Thompson, PT [facility] [address] [facility] 106 [place], [place] 840625 06/21/2024 2:00 PM BOOSTER ASSEMBLER Office Visit [facility] Neurology Clinics - [place] [address] [facility], [address] [place] [phone] [place] [address] [place], [place] 802467 Johnny Penn MD 0953 [place], [place] 58[address] 06/25/2024 8:30 AM BOOSTER ASSEMBLER Office Visit [address] [address] Valery Veronica, PAUcheC [address] [place] [address]285 11/28/2024 7:45 AM CDT Virtual Visit [facility] Gastroenterology Clinic [address] 4th [place] [phone] Meredith Carrera, PAUcheC [address] [place] [address] 599935 documented as of this encounter Visit Diagnoses Not on filedocumented in this encounter Additional Health Concerns Assessment Noted Time PHQ-9 Depression Total Score: 3 02/07/20 24 9:33 AM CDT documented as of this encounter Care Teams Histology Aide Relationship Specialty Start Date End Date Esha Grimm PA-C [address] [place] [address] PCP - General Family Medicine 05/04/23 Diana Desir, [facility] [address] [place] [address] Pharmacist Pharmacist 04/17/21 Rain Galaviz PA-C [address] [place] [address] [address] [place] [address] Physician Director Of Student Aid Dermatology 04/28/21 Tavia Wyatt MD [address] [place] [address] [address] [facility] [place] [address] Dermatology 07/14/21 Erica Farrell APRN PHYSICAL DIRECTOR [address] [facility] [address] [place] [address] Nurse Practitioner Cardiovascular Disease 09/09/21 Rich Barrett MD [address] [facility] 9[address] [place], [place] 0[address] Physician Ophthalmology 01/21/22 Neil Kent MD 500 [place], [place] 213075 Dermatology 02/24/22 Diana Desir, [facility] [address] [place] [address] Assigned MTM Pharmacist 04/07/22 Livan Sharif MD [address] [facility] [address] [place] [address] Cardiovascular Disease 05/14/22 Catherine Cm MD [address] [facility] [address] [place] [address] Cardiovascular Disease 07/21/22 Valery Veronica, PA-C [address] [place] [address] 033535 Physician Director Of Student Aid Dermatology 07/21/22 Brea Quinn APRN PHYSICAL DIRECTOR 500 [place], [place] 423705 Nurse Practitioner Dermatology 09/21/22 Brea Quinn APRN PHYSICAL DIRECTOR 6401 [place] [address] Assigned Surgical Provider 10/09/22 05/01/24 [place] [address] [facility] 300 [place] [address] Assigned Musculoskeletal Provider 10/09/22 05/01/24 Alfonso Renteria MD 5775 [facility] 200 [place], [place] 466106 Assigned Neuroscience Provider 04/02/23 Radha Lomeli APRN PHYSICAL DIRECTOR [address] [place] [address] Assigned Heart and Vascular Provider 05/28/23 Jelena David OD [address] [facility] [place] [address] Ophthalmology 06/15/23 Esha Grimm PA-C [address] [place] [address] Assigned PCP 07/16/23 Valery Veronica PA-C [address] [place] [address] 887455 Physician Director Of Student Aid Dermatology 09/19/23 Rey Tay MD [address] [place] [address] MD Gastroenterology 09/20/23 Rocky Zepeda DO [address] [place] [address] Physician Gastroenterology 09/20/23 Philip Dumnot MD [address] [place] [address] 776975 Physician Ophthalmology 09/22/23 Meredith Carrera PA-C [address] [place] [address] Assigned Gastroenterology Provider 11/01/23 Neil Kent MD [address] 021460 Dermatology 11/02/23 [place] [address] [place], [place] 807[address] Neurological Surgery 12/26/23 Audrey Waite PA-C 500 [place], [place] 232105 Physician Director Of Student Aid Dermatology 02/28/24 documented as of this encounter
--- OUTSIDE RECORDS SUMMARY | 2024-05-27 08:45 | XMS_ITS | Encounter Summary ---
Author Organization [place] Address [address] [place] [address] Care Team Providers Care Student Services Rep Name Role Phone Diana Desir [facility] Unavailable Rani Galaviz PA-C Unavailable [phone] Tavia Wyatt MD Unavailable Unavailable Erica Farrell CHANGE MANAGEMENT ADMINISTRATOR RAKING MACHINE OPERATOR Unavailable Rich Barrett MD Unavailable Neil Kent MD Unavailable ThangDiana [facility] Unavailable [phone] Livan Sharif MD Unavailable Catherine Cm MD Unavailable + Valery Veronica PA-C Unavailable [phone] Brea Quinn CHANGE MANAGEMENT ADMINISTRATOR RAKING MACHINE OPERATOR Unavailable Brea Quinn CHANGE MANAGEMENT ADMINISTRATOR RAKING MACHINE OPERATOR Unavailable Jose Francisco Johnson MD Unavailable Alfonso Renteria MD Unavailable + [phone] Esha Grimm PA-C Primary Care Provider Radha Lomeli CHANGE MANAGEMENT ADMINISTRATOR RAKING MACHINE OPERATOR Unavailable [phone] Jelena David OD Unavailable [phone] Esha Grimm PA-C Unavailable [phone] Valery Veronica PA-C Unavailable Rey Tay MD Unavailable Rocky Zepeda DO Unavailable Philip Dumont MD Unavailable Meredith Carrera PA-C Unavailable Neil Kent MD Unavailable Juan Pablo Emmanuel MD Unavailable Audrey Waite PA-C Unavailable [phone] Valery Veronica PA-C Unavailable [phone] Encounter Details Date Type Department Care Team (Late st Contact Info) Description 03/19/2024 MyC Medical Advice [facility] Gastroenterology Clinic [address] [place] [address] [place] Social History Tobacco [...] Answer Date Recorded PHQ-2 Score 1 02/07/2024 [facility] of Occupat ional [...] exercise at this level? 30 min 03/10/2023 [place] Depression Scale Answer Date Recorded [place] Depression Score 5 01/14/2021 Last EPDS Self [...] PM CDT Legal Sex Female 4:13 AM RAKING MACHINE OPERATOR Gender Identity Female 03/02/2021 5:45 PM CDT Sexual Orientation Straight 02/28/2020 12 :51 AM CDT documented as of this encounter Plan of Treatment Upcoming Encounters Date Type Department Care Team (Late st Contact Info) Description 05/31/2024 8:40 AM RAKING MACHINE OPERATOR Therapy Visit [facility] Rehabilitation Services [address] [place] [phone] Ingris Thompson, PT [facility] [address] [place] [address] 05/31/2024 3:30 PM RAKING MACHINE OPERATOR Office Visit [facility] Specialty Clinic [address] [phone] Audrey Díaz, Herminia Koo MD [address] [place] [address] [phone] 06/04/2024 3:30 PM RAKING MACHINE OPERATOR Office Visit [address] [place] [phone] [place] David OD [address] [place] [address] 06/11/2024 10:30 AM RAKING MACHINE OPERATOR Appointment [facility] Respiratory Therapy [address] [place] [address] Spec, Nurse Only Med 06/18/2024 2:50 PM RAKING MACHINE OPERATOR Therapy Visit [facility] Rehabilitation Services [address] [place] [phone] Ingris Thompson, PT [facility] [address] [facility] 106 [place], [place] [address] 06/21/2024 2:00 PM RAKING MACHINE OPERATOR Office Visit [facility] Neurology Clinics - [place] [address] [place] [address], [address] [place] [phone] [place] [address] [place], [place] 8465[address] Johnny Penn MD 3924 [place], [place] 293365 06/25/2024 8:30 AM RAKING MACHINE OPERATOR Office Visit [address] [phone] Valery Veronica PA-C [address] [place] [address] 080825 11/28/2024 7:45 AM CDT Virtual Visit [facility] Gastroenterology Clinic [address] 4th [place] [phone] Meredith Carrera PA-C [address] [place] [address] 046645 documented as of this encounter Visit Diagnoses Not on filedocumented in this encounter Additional Health Concerns Infection Onset Date Last Indicated Resolved Time Rule Out COVID-19 04/09/2024 04/09/2024 04/10/2024 6:48 PM CDT Assessment Noted Time PHQ-9 Depression Total Score: 3 02/07/20 24 9:33 AM CDT documented as of this encounter Care Teams Student Services Rep Relationship Specialty Start Date End Date Esha Grimm PA-C [address] [place] [address] PCP - General Family Medicine 05/04/23 Diana Desir, [facility] 3033 [place] [address] Pharmacist Pharmacist 04/17/21 Rain Galaviz PA-C [address] [place] [address] [address] [place] [address] Physician Salicylic Acid Blender Dermatology 04/28/21 Tavia Wyatt MD [address] [place] [address] [address] [place] [address] Dermatology 07/14/21 Erica Farrell APRN RAKING MACHINE OPERATOR [address] [facility] [address] [place] [address] Nurse Practitioner Cardiovascular Disease 09/09/21 Rich Barrett MD [address] [phone] Physician Ophthalmology 01/21/22 Neil Kent MD 500 [place], [place] [phone] Dermatology 02/24/22 Diana Desir, [facility] 3033 [place], [place] [phone] Assigned MTM Pharmacist 04/07/22 Livan Sharif MD [address] [place] 7146700 [place], [place] [address]305 Cardiovascular Disease 05/14/22 Catherine Cm MD [address] [place] [phone] [place], [place] 621145 Cardiovascular Disease 07/21/22 Valery Veronica, PA-C [address] [place] [address] 816865 Physician Salicylic Acid Blender Dermatology 07/21/22 Brea Quinn APRN RAKING MACHINE OPERATOR [address] [place] [address] [phone] Nurse Practitioner Dermatology 09/21/22 Brea Quinn APRN RAKING MACHINE OPERATOR [address] [place] [address] [id number] Assigned Surgical Provider 10/09/22 05/01/24 [place] [address] 166727 Assigned Musculoskeletal Provider 10/09/22 05/01/24 Alfonso Renteria MD [address] [phone] Assigned Neuroscience Provider 04/02/23 Armani Radha ARLENE [place] RAKING MACHINE OPERATOR [address] [facility] [place] [address] [place] [address] Assigned Heart and Vascular Provider 05/28/23 Jelena David OD [address] [facility] [address] [place] [phone] MD Ophthalmology 06/15/23 Esha Grimm PA-C [address] [place] [phone] Assigned PCP 07/16/23 Valery Veronica PA-C [address] [place] [address] 624975 Physician Salicylic Acid Blender Dermatology 09/19/23 Rey Tay MD [address] [place] [address] 804645 Gastroenterology 09/20/23 Rocky Zepeda DO [address] [place] [address] 440885 Physician Gastroenterology 09/20/23 Philip Dumont MD [address] [place] [address] 285335 Physician Ophthalmology 09/22/23 Meredith Carrera PA-C [address] [place] [address] Assigned Gastroenterology Provider 11/01/23 Neil Kent MD [address] [address] Dermatology 11/02/23 [place] [address] [address] [facility] [address] Neurological Surgery 12/26/23 Audrey Waite PA-C 500 [place] [address] Physician Salicylic Acid Blender Dermatology 02/28/24 Valery Veronica PA-C [address] [place] [address] Physician Salicylic Acid Blender Dermatology 04/10/24 documented as of this encounter
--- OUTSIDE RECORDS SUMMARY | 2024-05-27 08:45 | XMS_ITS | Encounter Summary ---
Author Organization [place] Address [address] [place] [address] Care Team Providers Care Hoof Trimmer Name Role Phone Diana Desir [facility] Unavailable Rain Galaviz PA-C Unavailable Tavia Wyatt MD Unavailable Unavailable Erica Farrell CONSERVATION SCIENTIST TIMBER SPRINKLER Unavailable Rich Barrett MD Unavailable Neil Kent MD Unavailable ThangDiana [facility] Unavailable [phone] Livan Sharif MD Unavailable Catherine Cm MD Unavailable + Valery Veronica PA-C Unavailable [phone] Brea Quinn CONSERVATION SCIENTIST TIMBER SPRINKLER Unavailable Brea Quinn CONSERVATION SCIENTIST TIMBER SPRINKLER Unavailable [phone] Jose Francisco Johnson MD Unavailable Alfonso Renteria MD Unavailable + [phone] Esha Grimm PA-C Primary Care Provider Radha Lomeli CONSERVATION SCIENTIST TIMBER SPRINKLER Unavailable Jelena David OD Unavailable [phone] Esha Grimm PA-C Unavailable [phone] Valery Veronica PA-C Unavailable Rey Tay MD Unavailable Rocky Zepeda Unavailable Philip Dumont MD Unavailable Meredith Carrera PA-C Unavailable [phone] Neil Kent MD Unavailable Juan Pablo Emmanuel MD Unavailable [phone] Audrey Waite PA-C Unavailable Valery Veronica PA-C Unavailable [phone] Reason for Visit * Rehab Therapy Physical Therapy (Priority: 1-2 Weeks) - Pending Review Specialty Diagnoses / Procedures Referred By Qian mayers Referred To Contact Diagnoses Chiari malformation type I (H) Neck pain Ebony Cid, [facility] [address] [place] [address] Phone: tel: fax: Referral ID Status Reason Start Date Expiration Date V isits Requested Visits Authorized [id number] Pending Review 01/05/2024 01/04/2025 1 1 Encounter Details Date Type Department Care Team (Latest Contact Info) Description 03/15/2024 10:40 AM CDT Therapy Visit [facility] Rehabilitation Services [address] [place] [address] Ingris Thompson, PT [facility] [address] [place] [address] [address] [place] [address] Neck pain (Primary Dx) Social [...] week 03/28/2024 How often do you attend [facility] or church services? 1 to 4 [...] 1 02/07/2024 [facility]ational Stress Questionnaire Answer Date [...] exercise at this level? 30 min 03/28/2024 [place] Depression Scale Answer Date Recorded [place] Depression Score 5 01/14/2021 Last EPDS [...] PM CDT Legal Sex Female 4:13 AM HEALTH CARE / MEDICAL JOB TITLES Gender Identity Female 03/02/2021 5:45 PM CDT Sexual Orientation Straight 02/28/2020 12 :51 AM CDT documented as of this encounter Progress Notes * Ingris Thompson, PT - 04/25/2024 2:31 PM CDT DISCHARGE Reason for Discharge: Patient has failed to schedule further appointments. Equipment Issued: none Discharge Plan: Patient to continue home program. Referring Provider: Ebony Hernandez Cid 03/15/24 0500 Appointment Info Signing clinician's name / credentials Ingris Thompson, PT Total/Authorized Visits PT E&T Visits Used 2 Medical Diagnosis Chiari malformation type I (H) Neck pain PT Tx Diagnosis mid back and neck pain Progress Note/Certification Start of Care Date 01/26/24 Onset of illness/injury or Date of Surgery 01/05/24 (MD order) Therapy Frequency 1x/week Predicted Duration 8 weeks Certification date from 01/26/24 Certification date to 03/21/24 PT Goal 1 Goal Identifier Lifting Goal Description Ability to lift for child care lead teacher and housework without neck or back pain Target Date 03/15/24 Subjective Report Subjective Report Pt reports she has constant neck pain, in last two weeks pt has been having mid back pain with inhales. can't lay flat on her back in the floor. Numbnes and tingling random and willlast up to an hour then go away. 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 Pain with wearing racerback bras. Objective Measures Objective Measures Objective Measure 1 Objective Measure 1 Details thoracic kyphosis, mid back tightness, forward head, forward shoulders and chest tightness PT Modalities PT Modalities Ultrasound Treatment Interventions (PT) Interventions Manual Therapy;Therapeutic Procedure/Exercise Therapeutic Procedure/Exercise Therapeutic Procedures: strength, endurance, ROM, flexibility minutes (94059) 30 PTRx Ther Proc 1 Pec Stretch Doorway PTRx Ther Proc 1 - Details cues for positioning and prolonged stretch x 30 seconds PTRx Ther Proc 2 Diaphragmatic Breathing PTRx Ther Proc 2 - Details completed sidelying with cues for back and side expansion also completedsitting with hands on ribs to monitor expansion PTRx Ther Proc 3 Thread the Needle PTRx Ther Proc 3 - Details very tight for patient 10 reps B PTRx Ther Proc 4 Prone Scapula I PTRx Ther Proc 4 - Details challenging x 10 reps cues for scapular engagement PTRx Ther Proc 5 Upper Cervical/Deep Neck Flexor Strengthening PTRx Ther Proc 5 - Details cues for chin tuck and small movement x 10 Manual Therapy Manual Therapy 1 joint mobilizations Manual Therapy 1 - Details prone PA glides of thoacic spine, hypomobile and some discomfort Manual Therapy: Mobilization, MFR, MLD, friction massage minutes (05755) 10 Education Education Comments PTRX phone Plan Plan for next session progress scapular ex, wall angels? wall walks? core ex? review breathing, foam roller extensions? revisist joint mobs Total Session Time Timed Code Treatment Minutes 40 Total Treatment Time (sum of timed and untimed services) 40 documented in this encounter Plan of Treatment Upcoming Encounters Date Type Department Care Team (Late st Contact Info) Description 05/31/2024 8:40 AM HEALTH CARE / MEDICAL JOB TITLES Therapy Visit [address] [phone] [facility] [address] [place] [address] 05/31/2024 3:30 PM HEALTH CARE / MEDICAL JOB TITLES Office Visit [address] [address] Audrey Díaz, Herminia Koo MD [address] [place] [address] 06/04/2024 3:30 PM HEALTH CARE / MEDICAL JOB TITLES Office Visit [address] [place] [phone] Jelena David, [address] [place] [address] 06/11/2024 10:30 AM HEALTH CARE / MEDICAL JOB TITLES Appointment [facility] Respiratory Therapy [address] [place] [phone] Spec, Nurse Only Med 06/18/2024 2:50 PM HEALTH CARE / MEDICAL JOB TITLES Therapy Visit [address] [phone] Ingris Thompson, PT [address] [address] 06/21/2024 2:00 PM HEALTH CARE / MEDICAL JOB TITLES Office Visit [facility] [place] [address] [facility], [address] [place] [phone] [place] [address] [place] [address] Johnny Penn MD [address] [facility] [place] [address] 06/25/2024 8:30 AM HEALTH CARE / MEDICAL JOB TITLES Office Visit [address] [phone] Valery Veronica PA-C [address] [place] [address] 11/28/2024 7:45 AM CDT Virtual Visit [facility] Gastroenterology Clinic [address] 4th [place] [phone] Meredith Carrera PA-C [address] [place] [address] documented as of this encounter Visit Diagnoses Diagnosis Neck pain- Primary Cervicalgia documented in this encounter Additional Health Concerns Infection Onset Date Last Indicated Resolved Time Rule Out COVID-19 04/09/2024 04/09/2024 04/10/2024 6:48 PM CDT Assessment Noted Time PHQ-9 Depression Total Score: 3 02/07/20 24 9:33 AM CDT documented as of this encounter Care Teams Hoof Trimmer Relationship Specialty Start Date End Date Esha Grimm PA-C [address] [place] [phone] PCP - General Family Medicine 05/04/23 [facility] [address] [place] [address] Pharmacist Pharmacist 04/17/21 Rain Galaviz PA-C [address] [place] [address] [address] [place] [address] Physician Pediatric Licensed Practical Nurse Dermatology 04/28/21 Tavia Wyatt MD [address] [place] [address] [address] [place] [address] Dermatology 07/14/21 Erica Farrell APRN TIMBER SPRINKLER [address] [place] [phone] Nurse Practitioner Cardiovascular Disease 09/09/21 Rich Barrett MD [address] [place] [address] [address] [place], [place] [address] Physician Ophthalmology 01/21/22 Neil Kent MD [address] [place], [place] [address]165 Dermatology 02/24/22 Diana Desir, [facility] [address] [place] [address] Assigned MTM Pharmacist 04/07/22 Livan Sharif MD [address] [place] [address]207[address] Cardiovascular Disease 05/14/22 Catherine Cm MD [address] [place] [address] Cardiovascular Disease 07/21/22 Valery Veronica PA-C [address] [place] [address] Physician Pediatric Licensed Practical Nurse Dermatology 07/21/22 Brea Quinn APRN TIMBER SPRINKLER 500 [place] [address] Nurse Practitioner Dermatology 09/21/22 Brea Quinn APRN TIMBER SPRINKLER 64[address] [place] [address] Assigned Surgical Provider 10/09/22 05/01/24 [place] [address] [address] [facility] [address] [place] [address] Assigned Musculoskeletal Provider 10/09/22 05/01/24 Alfonso Renteria MD [address] [facility] 200 [place], [place] [address] Assigned Neuroscience Provider 04/02/23 Radha Lomeli APRN TIMBER SPRINKLER [address] [facility] [address] [place] [address] Assigned Heart and Vascular Provider 05/28/23 Jelena David OD [address] [facility] [place] [address] Ophthalmology 06/15/23 Esha Grimm PA-C [address] [place] [address] Assigned PCP 07/16/23 Valery Veronica PA-C [address] [place] [address] Physician Pediatric Licensed Practical Nurse Dermatology 09/19/23 Rey Tay MD [address] [place] [address] MD Gastroenterology 09/20/23 Rocky Zepeda DO [address] [place] [address] 487705 Physician Gastroenterology 09/20/23 Philip Dumont MD [address] [place] [address]4045 Physician Ophthalmology 09/22/23 Meredith Carrera PA-C [address] [place] [address] 373385 Assigned Gastroenterology Provider 11/01/23 Neil Kent MD [address] [address] Dermatology 11/02/23 [place] [address] [place], [place] 9249[address] Neurological Surgery 12/26/23 Audrey Waite PA-C [address] [place] [address] 024085 Physician Pediatric Licensed Practical Nurse Dermatology 02/28/24 Valery Veronica PA-C [id number] [place] [address] Physician Pediatric Licensed Practical Nurse Dermatology 04/10/24 documented as of this encounter
--- OUTSIDE RECORDS SUMMARY | 2024-05-27 08:45 | XMS_ITS | Encounter Summary ---
Author Organization [place] Address [address] [place] [address] Care Team Providers Care Emergency Care Attendant Name Role Phone Diana Desir [facility] Unavailable [phone] Rain Galaviz PA-C Unavailable Tavia Wyatt MD Unavailable Unavailable Erica Farrell SEAT TRIMMER TOP DISTRIBUTION EXECUTIVE Unavailable Rich Barrett MD Unavailable Neil Kent MD Unavailable ThangDiana [facility] Unavailable [phone] Livan Sharif MD Unavailable Catherine Cm MD Unavailable + Valery Veronica PA-C Unavailable [phone] Brea Quinn SEAT TRIMMER TOP DISTRIBUTION EXECUTIVE Unavailable Brea Quinn SEAT TRIMMER TOP DISTRIBUTION EXECUTIVE Unavailable Jose Francisco Johnson MD Unavailable Alfonso Renteria MD Unavailable + [phone] Esha Grimm PA-C Primary Care Provider Radha Lomeli SEAT TRIMMER TOP DISTRIBUTION EXECUTIVE Unavailable [phone] Jelena David OD Unavailable [phone] Esha Grimm PA-C Unavailable [phone] Valery Veronica PA-C Unavailable [phone] Rey Tay MD Unavailable Rocky Zepeda DO Unavailable Philip Dumont MD Unavailable [phone] Meredith Carrera PA-C Unavailable [phone] Neil Kent MD Unavailable Juan Pablo Emmanuel MD Unavailable [phone] Audrey Waite PA-C Unavailable [phone] Encounter Details Date Type Department Care Team (Latest Contact Info) Description 04/07/2024 Travel Social History Tobacco Use Types Packs/Day [...] Answer Date Recorded PHQ-2 Score 1 02/07/2024 [facility] - Occupational [...] exercise at this level? 30 min 03/28/2024 [place] Depression Scale Answer Date Recorded [place] Depression Score 5 01/14/2021 Last EPDS [...] in an overnight penitentiary, or couch-surfing.) Yes 03/28/2024 Are you worried [...] PM CDT Legal Sex Female 4:13 AM CLINICAL TRIAL DATA MANAGER Gender Identity Female 03/02/2021 5:45 PM CDT Sexual Orientation Straight 02/28/2020 12 :51 AM CDT documented as of this encounter Plan of Treatment Upcoming Encounters Date Type Department Care Team (Late st Contact Info) Description 05/31/2024 8:40 AM CLINICAL TRIAL DATA MANAGER Therapy Visit [facility] [address] [place] [phone] Ingris Thompson, PT [facility] [address] [place] [address] 106 [place], [place] [phone] 05/31/2024 3:30 PM CLINICAL TRIAL DATA MANAGER Office Visit [facility] [address] [phone] Audrey Díaz, Herminia Koo MD [address] [place] [address] 06/04/2024 3:30 PM CLINICAL TRIAL DATA MANAGER Office Visit [address] [place] [phone] Jelena David, SONJA [address] [place] [address] [place] [address] 06/11/2024 10:30 AM CLINICAL TRIAL DATA MANAGER Appointment [facility] Respiratory Therapy [address] [place] [address] Spec, Nurse Only Med 06/18/2024 2:50 PM CLINICAL TRIAL DATA MANAGER Therapy Visit [facility] [place] [address] [facility] [address] [place] [phone] Ingris Thompson, PT [facility] [address] [facility] 106 [place], [place] [address] 06/21/2024 2:00 PM CLINICAL TRIAL DATA MANAGER Office Visit [facility] [place] [address] [facility], [address] [place] [phone] [place] [address] [place], [place] 3139[address] Johnny Penn MD [address] [place], [place] [address] 06/25/2024 8:30 AM CLINICAL TRIAL DATA MANAGER Office Visit [address] [address] Valery Veronica, PAUcheC [address] [place] [address] 11/28/2024 7:45 AM CDT Virtual Visit [facility] [address] 4th [place] [phone] Meredith Carrera, PAUcheC [address] [place] [address]85155 documented as of this encounter Visit Diagnoses Not on filedocumented in this encounter Additional Health Concerns Assessment Noted Time PHQ-9 Depression Total Score: 3 02/07/20 24 9:33 AM CDT documented as of this encounter Care Teams Emergency Care Attendant Relationship Specialty Start Date End Date Esha Grimm PA-C [address] [place] [address] PCP - General Family Medicine 05/04/23 Diana Desir, [facility] [address] [place] [address] Pharmacist Pharmacist 04/17/21 Rain Galaviz PA-C [address] [place] [address] [address] [place] [address] Physician Human Resources Trainee Dermatology 04/28/21 Tavia Wyatt MD [address] [place] [address] DR ARRIOLA [facility][NOTE 2][place] [address] Dermatology 07/14/21 Erica Farrell APRN TOP DISTRIBUTION EXECUTIVE [address] [facility] [address] [place] [address] Nurse Practitioner Cardiovascular Disease 09/09/21 Rich Barrett MD [address] [facility] 9A [place], [place] 12[address] Physician Ophthalmology 01/21/22 Neil Kent MD 500 [place], [place] 5[address]15 Dermatology 02/24/22 Diana Desir, [facility] 30[address] [place] [address] Assigned MTM Pharmacist 04/07/22 Livan Sharif MD [address] [facility] [address] [place] [address] Cardiovascular Disease 05/14/22 Catherine Cm MD [address] [facility] [address] [place] [address] Cardiovascular Disease 07/21/22 Valery Veronica, PA-C [address] [place] [address] 596985 Physician Human Resources Trainee Dermatology 07/21/22 Brea Quinn APRN TOP DISTRIBUTION EXECUTIVE 500 [place], [place] 388895 Nurse Practitioner Dermatology 09/21/22 Brea Quinn APRN TOP DISTRIBUTION EXECUTIVE 6401 [place] [address] Assigned Surgical Provider 10/09/22 05/01/24 [place] [address] [facility] 300 [place] [address] Assigned Musculoskeletal Provider 10/09/22 05/01/24 Alfonso Renteria MD [address] [facility] 200 [place], [place] 6[address]156 Assigned Neuroscience Provider 04/02/23 Radha Lomeli APRN TOP DISTRIBUTION EXECUTIVE [address] [place] [address] Assigned Heart and Vascular Provider 05/28/23 Jelena David OD [address] [facility] [place] [address] Ophthalmology 06/15/23 Esha Grimm PA-C [address] [place] [address] Assigned PCP 07/16/23 Valery Veronica PA-C [address] [place] [address] 584155 Physician Human Resources Trainee Dermatology 09/19/23 Rey Tay MD [address] [place] [address] MD Gastroenterology 09/20/23 Rocky Zepeda DO [address] [place] [address] Physician Gastroenterology 09/20/23 Philip Dumont MD [address] [place] [address] 602545 Physician Ophthalmology 09/22/23 Meredith Carrera PA-C [address] [place] [address] Assigned Gastroenterology Provider 11/01/23 Neil Kent MD [address] 6447[address] Dermatology 11/02/23 [place] [address] [place], [place] [address] Neurological Surgery 12/26/23 Audrey Waite PA-C 500 [place], [place] 433385 Physician Human Resources Trainee Dermatology 02/28/24 documented as of this encounter
--- OUTSIDE RECORDS SUMMARY | 2024-05-27 08:45 | XMS_ITS | Encounter Summary ---
Author Organization [facility] Address [address] [place] [address] Care Team Providers Care Cytotechnologist/Cytology Supervisor Name Role Phone Diana Desir [facility] Unavailable Rain Galaviz PA-C Unavailable Tavia Wyatt MD Unavailable Unavailable Erica Farrell DIGESTER OPERATOR TOOL ENGINEER Unavailable Rich Barrett MD Unavailable Neil Kent MD Unavailable ThangDiana [facility] Unavailable [phone] Livan Sharif MD Unavailable Catherine Cm MD Unavailable + Valery Veronica PA-C Unavailable [phone] Brea Quinn DIGESTER OPERATOR TOOL ENGINEER Unavailable Brea Quinn DIGESTER OPERATOR TOOL ENGINEER Unavailable Jose Francisco Johnson MD Unavailable Alfonso Renteria MD Unavailable + [phone] Esha Grimm PA-C Primary Care Provider [phone] Radha Lomeli DIGESTER OPERATOR TOOL ENGINEER Unavailable Jelena David OD Unavailable Esha Grimm Adam PA-C Unavailable [phone] Valery Veronica PA-C Unavailable Rey Tay MD Unavailable Rocky Zepeda Unavailable Philip Dumont MD Unavailable Meredith Carrera PA-C Unavailable Neil Kent MD Unavailable Juan Pablo Emmanuel MD Unavailable Audrey Waite PA-C Unavailable Reason for Referral * Diagnostic Imaging CT Scan (Routine) - Closed Specialty Diagnoses / Procedures Referred By Qian t Referred To Contact Radiology. Diagnoses Chronic upper back pain Atypical chest pain Chest tightness Procedures CT Chest w Contrast Fady Menon MD [address] [address] Phone: tel: fax: [facility] [address] [place] [address] Phone: tel: fax: Referral ID Status Reason Start Date Expiration Date Visits Re quested Visits Authorized [id number] Closed 03/29/2024 03/29/2025 1 1 Reason for Visit * Reason Comments Breathing Problem SOB intermittently X 2 monthsNotes she vapes tobacco Encounter Details Date Type Department Care Team (Late st Contact Info) Description 03/29/2024 9:30 AM CDT Office Visit [facility] [address] [place] [address] Fady Meonn MD [address] [place] [address] Chest tightness (Primary Dx); Chronic upper back pain; Atypical chest pain; Current every day vaping Social History Tobacco Use Types Packs/Day Years [...] Answer Date Recorded PHQ-2 Score 1 02/07/2024 [facility] [place] [facility] - Occupational [...] exercise at this level? 30 min 03/28/2024 [place] Depression Scale Answer Date Recorded [place] Depression Score 5 01/14/2021 Last EPDS Self [...] in an overnight fci, or couch-surfing.) Yes 03/28/2024 Are you worried [...] PM CDT Legal Sex Female 4:13 AM SPECIAL EDUCATION SUPERVISOR Gender Identity Female 03/02/2021 5:45 PM CDT Sexual Orientation Straight 02/28/2020 12 :51 AM CDT documented as of this encounter Last Filed Vital Signs Vital Sign Reading Time Taken Comments Blood Pressure 109/73 03/29/2024 9:22 AM CDT Pulse 76 03/29/2024 9:22 AM CDT Temperature 36.7 ??C (98 ??F) 03/29/2024 9:22 AM CDT Respiratory Rate 18 03/29/2024 9:22 AM CDT Oxygen Saturation 99% 03/29/2024 9:22 AM CDT Inhaled Oxygen Concentration - - Weight 89.4 kg (197 lb) 03/29/2024 9:22 AM CDT Height - - Body Mass Index 31.8 03/06/2024 2:58 PM CDT documented in this encounter Patient Instructions * Patient Instructions* Fady Menon MD - 03/29/2024 9:30 AM CDT PLAN: 1. Take the methylprednisolone dose pack you have at home. This may be both therapeutic and diagnostic. Note the response to this treatment on all symptoms: - anterior chest pain - back pain - chest tightness - cough, breathing symptoms 2. Work hard to stop vaping. Consider all means to do this, including support group if needed, etc. 3. Await results of heart monitor. Consider a retrial of higher dose metoprolol (25 mg) if symptomspersist. 4. Schedule follow-up with PCP (Esha Grimm) to review response to steroids, etc. documented in this encounter Progress Notes * Fady Menon MD - 03/29/2024 9:30 AM CDT [facility] Services Clinic Visit ASSESSMENT: 1. Chronic chest tightness and discomfort. To date, untreated. While cause of symptoms are not fully certain, I feel that the following are most likely true - patient is having symptoms related to her vaping - she likely does not have underlying significant reactive airways disease. PFT could be repeated in clinic, if needed - she is probably having some symptoms after a recent URI. Rule out chronic bronchitis based on exam, but all symptoms are not typical. - rule out correlation with esophagitis, which seems unlikely - doubt chronic back pain and chest pressure/discomfort are directly related 2. Nicotine abuse (vaping) 3. Chronic back pain, recently started on Physical Therapy. Further treatment deferred to ortho at this time. PLAN: 1. Patient encouraged to take the methylprednisolone dose pack she has at home. This may be both therapeutic and diagnostic. Note the response to this treatment on all symptoms: - anterior chest pain - back pain - chest tightness - cough, breathing symptoms 2. She needs to work hard to stop vaping. Consider all means to do this, including support group ifneeded, etc. 3. Await results of heart monitor. Consider a retrial of higher dose metoprolol (25 mg) if symptomspersist. 4. Schedule follow-up with PCP (Esha Grimm) to review response to steroids, etc. Greater than 40 minutes were spent on chart review, patient care and assessment, and other management of this patient for this visit. Subjective Kim is a 23 year old, presenting for the following health issues: Breathing Problem (SOB intermittently X 2 months/Notes she vapes tobacco ) HPI Shortness of Breath/Breathing Problem Onset/Duration: X 3-4 months Progression of symptoms: worsening and same Accompanying signs and symptoms: SOB at rest: YES SOB with activity: YES Pain with inspiration: YES- but notes this is rare Cough: No [place] tinged sputum: No Sweating: No Nausea/vomiting: YES- nausea Lightheadedness: YES- intermittent Palpitations: YES- has cardiac work up. Heart Monitor will be mailed into clinic by patient today, hx of SVT and cardiac ablation Fever/chills: No Heartburn: YES History Family history of coagulation disorders: YES-maternal grandfather, uncle cardiac Tobacco use: YES- vaping tobacco Previous similar symptoms: no Precipitating factors: Related to eating: I don't know, they could be, hx of ulcer Better with burping: YES- this helps a little, but not burping often, not a significant change Therapies tried and outcome: rx inhaler-doesn't like this as this increases her HR, steroids-doesn't like taking these. Notes hx of back problems, could be related to breathing symptoms. Recent weight gain and psoriasis flare ups Patient presents to follow-up ongoing respiratory issues. History of asthma according to chart perhaps diagnosed as a teen but not treated. Patient cannot recall this and states she recalls being told she didn't have asthma. Normal PFT in 2020. - seen ED in [place] multiple times. Was prescribed medrol - filled but didn't - [facility] ED 12/25 and 01/11/24 - [facility] 03/25, with symptoms of shortness of breath, chest pain, fatigue, wheezing, generalized aching, upper back pain. Chest x-ray negative. Prescribed prednisone and albuterol but patient states that she will not take. Home O2 levels in the upper 90's Intermittent dizziness, wonders if related to beta-joseph No ENT symptoms of note Current symptoms: daily shortness of breath and chest tightness past few months, come and go. Happens with stairs and at rest. Has chest pain across front of chest, also under under L breast. Has constant upper back pain from mid back and up. Not really pleuritic chest pain. Coughs a little, intermittently, feels this might Some chronic upper back pain, injury in past as CVA. Has seen ortho and PT, pain worse past couple of months. Painful breathing, moving. Patient wondering if this is related to breathing issues/shortness of breath. PT states that she is very tight, not helping a lot so far, but just started. Doing home exercises. Using ibuprofen and tylenol occasionally when in a lot of pain, helps a little? Still tight and feels with movement. Smoked cigarettes for 4 years, then quit x 4 years, then recently started vaping. Patient feels thevaping has aggravated her breathing but not caused the blood pressure. Vapes a little. Was able to stop for 5 days but didn't change much. Patient has a history of SVT and ablation. Just completed heart monitor which was done to monitor progress. Hasn't turned in yet. On beta-joseph. PMHx also with anxiety, depression, seizure, GERD, psoriasis, kidney stone, MICHAEL, UTI Family history of cardiovascular disease: grandfather and uncles/aunt with early MIs, Father with stroke. Uncle with PE. No DVTs known. Epilepsy in father. 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 Stress level is higher, higher than usual. Works, single mom, college, etc. Manages stressors through therapy, positive affirmations, yogo, being social. Daughter age 3. 05/16/2023 9:28 AM 06/20/2023 8:40 AM 02/07/2024 9:33 AM PHQ PHQ-9 Total Score 6 4 3 Q9: Thoughts of better off /self-harm past 2 weeks Not at all Not at all Not at all 03/10/2023 6:50 AM 06/20/2023 8:40 AM 09/01/2023 10:57 AM KALYN-7 SCORE Total Score 3 (minimal anxiety) 4 (minimal anxiety) Total Score 3 4 6 Sexually active, has IUD. Currently no cigarettes, marijuana, hookah, etc. Review of Systems GERD symptoms common, some breakthrough despite PPI. No constipation, some bloating and gassiness. History of eosinophilic esphagitis and hiatal hernia,occasional swallowing issues. EGD 09/2023 also showed gastritis. Denies edema Some tension headaches Menses just finished, feels there is no way she could be Objective BP 109/73 (BP Location: Left arm, Patient Position: Chair, Cuff Size: Adult Regular) Pulse 76 Temp 98 ??F (36.7 ??C) (Oral) Resp 18 Wt 89.4 kg (197 lb) LMP (LMP Unknown) SpO2 99% BMI 31.80 kg/m?? Body mass index is 31.8 kg/m??. Physical Exam GENERAL: alert and no distress NECK: no adenopathy, no asymmetry, masses, or scars RESP: lungs clear to auscultation - no rales, rhonchi or wheezes CV: regular rate and rhythm, normal S1 S2, no S3 or S4, no murmur, click or rub, no peripheral edema ABDOMEN: soft, nontender, no hepatosplenomegaly, no masses and bowel sounds normal MS: no gross musculoskeletal defects noted, no edema Few rhonchi lower lobes CT CHEST IMPRESSION: 1. No acute abnormality. 2. Stable small hiatal hernia. Signed Electronically by: Fady Menon MD documented in this encounter Plan of Treatment Upcoming Encounters Date Type Department Care Team (Late st Contact Info) Description 05/31/2024 8:40 AM SPECIAL EDUCATION SUPERVISOR Therapy Visit [place] [address] [place] [address] Ingris Thompson, PT [address] [address] 05/31/2024 3:30 PM SPECIAL EDUCATION SUPERVISOR Office Visit [facility] [place] [id number] [place] [phone] Audrey Díaz, Herminia Koo MD [address] [place] [address] 06/04/2024 3:30 PM SPECIAL EDUCATION SUPERVISOR Office Visit [address] [place] [phone] Jelena David, [address] [place] [address] 06/11/2024 10:30 AM SPECIAL EDUCATION SUPERVISOR Appointment [facility] Respiratory Therapy [address] [place] [phone] Spec, Nurse Only Med 06/18/2024 2:50 PM SPECIAL EDUCATION SUPERVISOR Therapy Visit [address] [place] [phone] Ingris Thompson, PT [address] [address] 06/21/2024 2:00 PM SPECIAL EDUCATION SUPERVISOR Office Visit [facility] - [address], [address] [place] [phone] [place] [address] [place] [address] Johnny Penn MD [address] [place] [address] 06/25/2024 8:30 AM SPECIAL EDUCATION SUPERVISOR Office Visit [address] [phone] Valery Veronica PA-C [address] [place] [address] 11/28/2024 7:45 AM CDT Virtual Visit [facility] [address] [place] [phone] Meredith Carrera PA-C [address] [place] [address] documented as of this encounter Results * CT Chest w [...] Stable small hiatal hernia. HILL LAO MD us Fady Menon MD IMG CT ORDERABLES Final Resu lt documented in this encounter Visit Diagnoses Diagnosis Chest tightness- Primary Other chest pain Chronic upper back pain Backache, unspecified Atypical chest pain Other chest pain Current every day vaping Chronic upper back pain Backache, unspecified Atypical chest pain Other chest pain Chest tightness Other chest pain documented in this encounter Additional Health Concerns Assessment Noted Time PHQ-9 Depression Total Score: 3 02/07/20 24 9:33 AM CDT documented as of this encounter Care Teams Cytotechnologist/Cytology Supervisor Relationship Specialty Start Date End Date Esha Grimm PA-C [address] [place] [phone] PCP - General Family Medicine 05/04/23 Diana Desir [facility] [address] [place] [address] Pharmacist Pharmacist 04/17/21 Rain Galaviz PA-C [address] [place] [address] [address] [place] [address] Physician Clinical Nursing Assistant Dermatology 04/28/21 Tavia Wyatt MD [address] [place] [address] [place] [address] Dermatology 07/14/21 Erica Farrell APRN TOOL ENGINEER [address] [place] [phone] Nurse Practitioner Cardiovascular Disease 09/09/21 Rich Barrett MD [address] [address] Physician Ophthalmology 01/21/22 Neil Kent MD [address] [place], [place] [phone] Dermatology 02/24/22 Diana Desir, [facility] [address] [place] [address] Assigned MTM Pharmacist 04/07/22 Livan Sharif MD [address] [place] [phone] Cardiovascular Disease 05/14/22 Catherine Cm MD [address] [place] [address] Cardiovascular Disease 07/21/22 Valery Veronica, CARI-C [address] [place] [address] Physician Clinical Nursing Assistant Dermatology 07/21/22 Brea Quinn APRN TOOL ENGINEER [address] [place] [address] Nurse Practitioner Dermatology 09/21/22 Brea Quinn APRN TOOL ENGINEER [address] [place] [address] Assigned Surgical Provider 10/09/22 05/01/24 [place] [address] [facility] [address] [place] [address] Assigned Musculoskeletal Provider 10/09/22 05/01/24 Alfonso Renteria MD [address] [facility] [address] [place], [place] [address] Assigned Neuroscience Provider 04/02/23 Radha Lomeli APRN TOOL ENGINEER [address] [facility] [address] [place], [place] [address] Assigned Heart and Vascular Provider 05/28/23 Jelena David OD [address] [facility] [address] Ophthalmology 06/15/23 Esha Grimm PA-C [address] [place] [phone] Assigned PCP 07/16/23 Valery Veronica PA-C [address] [place] [address] Physician Clinical Nursing Assistant Dermatology 09/19/23 Rey Tay MD [address] [place] [address] MD Gastroenterology 09/20/23 Rocky Zepeda DO [address] [place] [address] Physician Gastroenterology 09/20/23 Philip Dumont MD [address] [place] [address] Physician Ophthalmology 09/22/23 Meredith Carrera PA-C [address] [place] [address] Assigned Gastroenterology Provider 11/01/23 Neil Kent MD [address] [address] Dermatology 11/02/23 [place] [address] [place] [address] Neurological Surgery 12/26/23 Audrey Waite PA-C [address] [place] [address] Physician Clinical Nursing Assistant Dermatology 02/28/24 documented as of this encounter
--- OUTSIDE RECORDS SUMMARY | 2024-05-27 08:45 | XMS_ITS | Encounter Summary ---
Author Organization [facility] Address [address] [place] [address] Care Team Providers Care Wage Analyst Name Role Phone Diana Desir [facility] Unavailable Rain Galaviz PA-C Unavailable Tavia Wyatt MD Unavailable Unavailable Erica Farrell HANDTOOLS REPAIRER RESEARCH SPEC Unavailable Rich Barrett MD Unavailable Neil Kent MD Unavailable ThangDiana [facility] Unavailable [phone] Livan Sharif MD Unavailable Catherine Cm MD Unavailable + Valery Veronica PA-C Unavailable [phone] Brea Quinn HANDTOOLS REPAIRER RESEARCH SPEC Unavailable Brea Quinn HANDTOOLS REPAIRER RESEARCH SPEC Unavailable Jose Francisco Johnson MD Unavailable Alfonso Renteria MD Unavailable + [phone] Esha Grimm PA-C Primary Care Provider [phone] Radha Lomeli HANDTOOLS REPAIRER RESEARCH SPEC Unavailable [phone] Jelena David OD Unavailable Wicho Grimmlincoln Medina PA-C Unavailable [phone] Valery Veronica-C Unavailable [phone] Rey Tay MD Unavailable Rocky Zepeda Unavailable Philip Dumont MD Unavailable [phone] Meredith Carrera-C Unavailable Neil Kent MD Unavailable Juan Pablo Emmanuel MD Unavailable [phone] Audrey Waite-C Unavailable [phone] Reason for Referral * Consultation (Routine: Next available opening) - Pending Review Specialty Diagnoses / Procedures Referred By Qian mayers Referred To Contact Rheumatology Diagnoses Psoriasis Chronic bilateral low back pain without sciatica Audrey Díaz PA-C Referral ID Status Reason Start Date Expiration Date V isits Requested Visits Authorized [id number] Pending Review 03/30/2024 03/30/2025 1 1 Question Answer Reason for Referral: Psoriatic Arthritis Scheduling Instructions: [facility] Dry Cell And Battery Assembler will call you to coordinate your care as prescribed by your provider. A sales representative church furniture will call you within 1 business day to help schedule your appointment, or you may contact the Dry Cell And Battery Assembler Bicycle Repairer at [phone]. Comments Please be aware that coverage of these services is subject to the terms and limitations of your health insurance plan. Call member services at your health plan with any benefit or coverage questions. [facility] Dry Cell And Battery Assembler will call you to coordinate your care as prescribed by your provider. A sales representative church furniture will call you within 1 business day to help schedule your appointment, or you may contact the Dry Cell And Battery Assembler Bicycle Repairer at [phone]. Reason for Visit * Reason Comments Urgent Care Would like a female provider---- Cough,Body aches/Chills/Kidney pain/possible,x3days, want away and the back, taking Tylenol, Encounter Details Date Type Department Care Team (Late st Contact Info) Description 03/30/2024 7:10 PM CDT Office Visit [facility] [place] [address] [place] [address] Audrey Díaz, ROVERTO Dysuria (Primary Dx); Vaginal discharge; Psoriasis; Chronic bilateral low back pain without sciatica Social History Tobacco Use Types Packs/Day Years [...] do you attend chur or scientologist services? 1 to 4 times [...] Date Recorded PHQ-2 Score 1 02/07/2024 [facility] Occupat ional Health - Occupational Stress [...] exercise at this level? 30 min 03/28/2024 [place] Depression Scale Answer Date Recorded [place] Depression Score 5 01/14/2021 Last EPDS Self [...] in an overnight intermediate, or couch-surfing.) Yes 03/28/2024 Are you worried [...] PM CDT Legal Sex Female 4:13 AM FITTER MECHANIC Gender Identity Female 03/02/2021 5:45 PM CDT Sexual Orientation Straight 02/28/2020 12 :51 AM CDT documented as of this encounter Last Filed Vital Signs Vital Sign Reading Time Taken Comments Blood Pressure 104/69 03/30/2024 7:13 PM CDT Pulse 92 03/30/2024 7:13 PM CDT Temperature 36.8 ??C (98.3 ??F) 03/30/2024 7:13 PM CD T Respiratory Rate - - Oxygen Saturation 100% 03/30/2024 7:13 PM CDT Inhaled Oxygen Concentration - - Weight 88.5 kg (195 lb) 03/30/2024 7:13 PM CDT Height - - Body Mass Index 31.47 03/06/2024 2:58 PM CDT documented in this encounter Progress Notes * Audrey Díaz PA-C - 03/30/2024 7:10 PM CDT Assessment & Plan: ICD-10-CM 1. Dysuria R30.0 UA Macroscopic with reflex to Microscopic and Culture - Clinic Collect 2. Vaginal discharge N89.8 Wet prep - lab collect Wet prep - lab collect 3. Psoriasis L40.9 Adult Rheumatology Dry Cell And Battery Assembler Referral 4. Chronic bilateral low back pain without sciatica M54.50 Adult Rheumatology Dry Cell And Battery Assembler Referral G89.29 Plan/Clinical Decision Making: Patient presents with multiple concerns. Dysuria UA is wnl. Results pasted below. Pt will monitor and follow up if symptoms persist. Vaginal discharge Wet prep is wnl. Results pasted below. Pt will monitor and follow up if symptoms persist. Chronic Low back pain/Psoriasis No bony tenderness. No recent injury. No CVA tenderness. Pt has psoriasis. Concern for psoriatic arthritis. Consult to rheumatology. 4. URI She has been having SOB for some time and had a chest CT yesterday. Results of the imaging are pasted below. Lungs are CTAB. We suspect the cause of her cold like symptoms to be viral. Pt has been advised to utilize tylenol and ibuprofen as needed. Should continue to Follow-up for ongoing and chronic issues with PCP. CT chest w/ Contrast (03/29/24): IMPRESSION: 1. No acute abnormality. 2. Stable small hiatal hernia. Today results (03/30) UA: wnl Wet prep: +1 WBC, otherwise wnl Pt has been informed to follow up in 5-7 days if needed or to seek emergent care with sudden or worsening symptoms. At the end of the encounter, I discussed results, diagnosis, medications. Discussed red flags for immediate return to clinic/ER, as well as indications for follow up if no improvement. Patient understood and agreed to plan. Patient was stable for discharge. VICKY Cunningham PA-C on 03/30/2024 at 7:43 PM Physician Attestation I, Audrey Díaz PA-C, was present with the medical/PAULA student who participated in the service and in the documentation of the note. I have verified the history and personally performed the physical exam and medical decision making. I agree with the assessment and plan of care as documented in t he note. Audrey Díaz PA-C Subjective: HPI: Kim is a 23 year old female who presents to clinic today for the following health issues: Chief Complaint Patient presents with Urgent Care Would like a female provider---- Cough,Body aches/Chills/Kidney pain/possible,x3days, want away andthe back, taking Tylenol, HPI Pt is presenting with cold symptoms for the past 4-5 days. She describes cough, burning in chest with cough and myalgias. In addition, she states she has generalized abdominal pain, bloating and gassiness, diarrhea and flank pain. She is concerned for kidney infection as she has a history of kidneyinfections from childhood. She states she is having foul smelling and curd like discharge. She treated herself for a yeast infection last week. She has been taking tylenol for her pain. Review of Systems Constitutional: Negative for chills and fever. HENT: Negative for congestion, ear discharge, ear pain, rhinorrhea and sore throat. Eyes: Negative for pain, discharge, redness and itching. Respiratory: Positive for cough. Negative for shortness of breath. Burning chest pain with cough - intermittent Gastrointestinal: Positive for abdominal distention, abdominal pain (generalized) and diarrhea. Negative for constipation and vomiting. Gassy Genitourinary: Positive for flank pain and vaginal discharge. Negative for dysuria, frequency, urgency, vaginal bleeding and vaginal pain. Musculoskeletal: Positive for back pain (chronic). Skin: Positive for rash (psoriasis). 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) Paroxysmal supraventricular tachycardia (H24) SVT (supraventricular tachycardia) (H24) Neck pain Past Medical History: Diagnosis Date Anxiety Chronic kidney disease stones, history of infections Depressive disorder Gastroesophageal reflux disease Psoriasis Seizure (H) 05/02/2019 no seizure since approx 2017 SVT (supraventricular tachycardia) (H24) Social History Tobacco Use Smoking status: Former Current packs/day: 0.00 Types: Other, Cigarettes Quit date: 12/07/2019 Years since quittin.3 Passive exposure: Past Smokeless tobacco: Current Tobacco comments: vaping Substance Use Topics Alcohol use: Yes Comment: social Objective: Vitals: 03/30/24 1913 BP: 104/69 Pulse: 92 Temp: 98.3 ??F (36.8 ??C) TempSrc: Tympanic SpO2: 100% Weight: 88.5 kg (195 lb) Physical Exam Constitutional: General: She is not in acute distress. Appearance: She is normal weight. HENT: Head: Normocephalic and atraumatic. Right Ear: Tympanic membrane, ear canal and external ear normal. There is no impacted cerumen. Left Ear: Tympanic membrane, ear canal and external ear normal. There is no impacted cerumen. Mouth/Throat: Mouth: Mucous membranes are moist. Pharynx: Oropharynx is clear. No oropharyngeal exudate or posterior oropharyngeal erythema. Eyes: General: No scleral icterus. Right eye: No discharge. Left eye: No discharge. Cardiovascular: Heart sounds: Normal heart sounds. Pulmonary: Breath sounds: Normal breath sounds. No stridor. No wheezing, rhonchi or rales. Abdominal: General: Bowel sounds are normal. There is no distension. Palpations: Abdomen is soft. There is no mass. Tenderness: There is abdominal tenderness. There is no right CVA tenderness, left CVA tenderness, guarding or rebound. Hernia: No hernia is present. Musculoskeletal: Cervical back: Neck supple. No tenderness. Lymphadenopathy: Cervical: No cervical adenopathy. Skin: General: Skin is warm and dry. Findings: Rash (widespread psoriasis) present. Neurological: Mental Status: She is alert. Results: Results for orders placed or performed in visit on 03/30/24 UA Macroscopic with reflex to Microscopic and Culture - Clinic Collect Status: Normal Specimen: Urine, Clean Catch Result Value Ref Range Color Urine Yellow Colorless, Straw, Light Yellow, Yellow Appearance Urine Clear Clear Glucose Urine Negative Negative mg/dL Bilirubin Urine Negative Negative Ketones Urine Negative Negative mg/dL Specific [place] Urine 1.020 1.003 - 1.035 Blood Urine Negative Negative pH Urine 7.0 5.0 - 7.0 Protein Albumin Urine Negative Negative mg/dL Urobilinogen Urine 0.2 0.2, 1.0 E.U./dL Nitrite Urine Negative Negative Leukocyte Esterase Urine Negative Negative Narrative Microscopic not indicated Wet prep - lab collect Status: Abnormal Specimen: Vagina; Swab Result Value Ref Range Trichomonas Absent Absent Yeast Absent Absent Clue Cells Absent Absent WBCs/high power field 1+ (A) None documented in this encounter Plan of Treatment Upcoming Encounters Date Type Department Care Team (Late st Contact Info) Description 05/31/2024 8:40 AM FITTER MECHANIC Therapy Visit [facility] [address] [place] [phone] Ingris Thompson, PT [facility] [address] [place] [address] [address] [place] [address] 05/31/2024 3:30 PM FITTER MECHANIC Office Visit [facility] [address] [phone] Audrey Díaz PA-C Khan, Waseem, MD [address] [place] [address] [phone] 06/04/2024 3:30 PM FITTER MECHANIC Office Visit [facility] [place] [address] [facility] [address] [place] [phone] Jelena David, [address] [facility] [place] [address] 06/11/2024 10:30 AM FITTER MECHANIC Appointment [facility] Res[facility] [address] [place] [phone] Spec, Nurse Only Med 06/18/2024 2:50 PM FITTER MECHANIC Therapy Visit [facility] [address] [place] [phone] Ingris Thompson, PT [facility] [address] [facility] [address] [place], [place] [address] 06/21/2024 2:00 PM FITTER MECHANIC Office Visit [facility] [place] [address] [place] [address], [address] [place] [phone] [place] [address] [place], [place] [address] Johnny Penn MD [address] [place], [place] [phone] 06/25/2024 8:30 AM FITTER MECHANIC Office Visit [address] [phone] Valery Veronica PA-C [address] [place] [phone] 11/28/2024 7:45 AM CDT Virtual Visit [facility] [address] 4th [place] [phone] Meredith Carrera PA-C [address] [place] [address] Scheduled Referrals Name Type Priority Associated Diagnoses Order Schedule Adult Rheumatology Dry Cell And Battery Assembler Referral Referral Routine: Next available opening Psoriasis Chronic bilateral low back pain without sciatica Expected: 03/30/2024 (Approximate), Expires: 03/30/2025 documented as of this encounter Procedures Procedure Name Priority Date/Time Associated Diagnosis Comments UA MACROSCOPIC WITH REFLEX TO MICRO AND CULTURE Routine 03/30/2024 7:30 PM CDT Dysuria WET PREPARATION Routine 03/30/2024 7:30 PM CDT Vaginal discharge documented in this encounter Results * (ABNORMAL) Wet prep - lab collect (03/30/2024 7:30 PM CDT) Trichomonas Absent Absent REINA 03/30/2024 7:45 PM CDT [facility] Yeast Absent Absent [facility] 03/30/2024 7:45 PM CDT [facility] Clue Cells Absent Absent [facility] 03/30/2024 7:45 PM CDT [facility] WBCs/high power field 1+(A) None REINA 03/30/2024 7:45 PM CDT [facility] Swab VAGINAL STRUCTURE / Unknown Non-blood Collection / Unknown 03/30/2024 7:30 PM CDT 03/30/2024 7:34 PM CDT Audrey Díaz PA-C LAB - MICRO GENERAL ORDERAB LES Final Result [facility] [place] [facility] [address] [facility] (no room number, 1st floor of clinic) [place] [address], [facility] * UA Macroscopic with reflex to Microscopic and Culture - Clinic Collect (03/30/2024 7:30 PM CDT) Color Urine Yellow Colorless, Straw, Light Yellow, Yellow 03/30/2024 7:44 PM CDT [facility] Appearance Urine Clear Clear 03/30/20 7:44 PM CDT [facility] Glucose Urine Negative Negative mg/dL 03/30/2024 7:44 PM CDT [facility] Bilirubin Urine Negative Negative 7:44 PM CDT [facility] Ketones Urine Negative Negative mg/dL 03/30/2024 7:44 PM CDT [facility] Specific [place] Urine 1.020 1.003 - 1.035 03/30/2024 7:44 PM CDT [facility] Blood Urine Negative Negative 03/30/2024 7:44 PM CDT [facility] pH Urine 7.0 5.0 - 7.0 03/30/2024 7:44 PM CDT [facility] Protein Albumin Urine Negative Negative mg/dL 03/30/2024 7:44 PM CDT [facility] Urobilinogen Urine 0.2 0.2, 1.0 E.U./dL 03/30/2024 7:44 PM CDT [facility] Nitrite Urine Negative Negative 03/30/2024 7:44 PM CDT [facility] Leukocyte Esterase Urine Negative Negative 03/30/2024 7:44 PM CDT [facility] Urine URINE SPECIMEN OBTAINED BY CLEAN CATCH PROCEDURE / Unknown Non-blood Collection / Unknown 03/30/2024 7:30 PM CDT 03/30/2024 7:34 PM CDT Narrative [facility] - 03/30/2024 7:44 PM CDT Microscopic not indicated Audrey Díaz PA-C LAB - URINE ORDERABLES Shira snyder Result [facility]ATORY [facility] [place] [facility] [address] [facility] (no room number, 1st floor of clinic) [place] [address], [facility] documented in this encounter Visit Diagnoses Diagnosis Dysuria- Primary Vaginal discharge Leukorrhea, not specified as infective Psoriasis Other psoriasis Chronic bilateral low back pain without sciatica documented in this encounter Additional Health Concerns Assessment Noted Time PHQ-9 Depression Total Score: 3 02/07/20 9:33 AM CDT documented as of this encounter Care Teams Wage Analyst Relationship Specialty Start Date End Date Esha Grimm PA-C [address] [place] [address] PCP - General Family Medicine 05/04/23 Diana Desir, [facility] [address] [place] [address] Pharmacist Pharmacist 04/17/21 Rain Galaviz PA-C [address] [place] [address] [address] [place] [address] Physician Cafeteria Supervisor Dermatology 04/28/21 Tavia Wyatt MD [address] [place] [address] [address] [facility] [address] Dermatology 07/14/21 Erica Farrell APRN RESEARCH SPEC [address] [place] [address] Nurse Practitioner Cardiovascular Disease 09/09/21 Rich Barrett MD [address] [place] [address] [phone] Physician Ophthalmology 01/21/22 Neil Kent MD [address] [place] [address] [phone] Dermatology 02/24/22 Diana Desir, [facility] [address] [place] [address] Assigned MTM Pharmacist 04/07/22 Livan Sharif MD [address] [place] [phone] Cardiovascular Disease 05/14/22 Catherine Cm MD [address] [facility] [address] [place] [address] Cardiovascular Disease 07/21/22 Valery Veronica, PAUcheC [address] [place], [place] 747[address] Physician Cafeteria Supervisor Dermatology 07/21/22 Brea Quinn APRN RESEARCH SPEC [address] [place] [address] [phone] Nurse Practitioner Dermatology 09/21/22 Brea Quinn APRN RESEARCH SPEC [address] [facility] [place] 300172 Assigned Surgical Provider 10/09/22 05/01/24 [place] [address] [address] [facility] [address] [place] [address] Assigned Musculoskeletal Provider 10/09/22 05/01/24 Alfonso Renteria MD [address] [facility] [address] [place], [place] 402206 Assigned Neuroscience Provider 04/02/23 Radha Lomeli APRN RESEARCH SPEC [address] [facility] [address] [place] [id number] Assigned Heart and Vascular Provider 05/28/23 Jelena David OD [address] [facility] [place] [address] MD Ophthalmology 06/15/23 Esha Grimm PA-C [address] [place] [phone] Assigned PCP 07/16/23 Valery Veronica PA-C [address] [place] [address] [phone] Physician Cafeteria Supervisor Dermatology 09/19/23 Rey Tay MD [address] [place] [address] [phone] MD Gastroenterology 09/20/23 Rcoky Zepeda DO [address] [place] [address] 897835 Physician Gastroenterology 09/20/23 Philip Dumont MD [address] [place] [address] [phone] Physician Ophthalmology 09/22/23 Meredith Carrera PA-C [address] [place] [address] Assigned Gastroenterology Provider 11/01/23 Neil Kent MD [address] [address] Dermatology 11/02/23 [place] [address] [place] [address] Neurological Surgery 12/26/23 Audrey Waite PA-C [address] [place] [address] Physician Cafeteria Supervisor Dermatology 02/28/24 documented as of this encounter
--- OUTSIDE RECORDS SUMMARY | 2024-05-27 08:45 | XMS_ITS | Encounter Summary ---
Author Organization [place] Address [address] [place] [address] Care Team Providers Care Optometric Aide Name Role Phone Diana Desir [facility] Unavailable Rain Galaviz PA-C Unavailable [phone] Tavia Wyatt MD Unavailable Unavailable Erica Farrell CARBON LAMP CLEANER LEARNING PROGRAM MANAGER Unavailable Rich Barrett MD Unavailable Neil Kent MD Unavailable ThangDiana [facility] Unavailable [phone] Livan Sharif MD Unavailable Catherine Cm MD Unavailable + Valery Veronica PA-C Unavailable [phone] Brea Quinn CARBON LAMP CLEANER LEARNING PROGRAM MANAGER Unavailable [phone] Brea Quinn CARBON LAMP CLEANER LEARNING PROGRAM MANAGER Unavailable Jose Francisco Johnson MD Unavailable Alfonso Renteria MD Unavailable + [phone] Esha Grimm PA-C Primary Care Provider Radha Lomeli CARBON LAMP CLEANER LEARNING PROGRAM MANAGER Unavailable [phone] Jelena David OD Unavailable Esha Grimm-C Unavailable [phone] Valery Veronica-C Unavailable Rey Tay MD Unavailable Duane Rocky DO Unavailable Philip Dumont MD Unavailable [phone] Meredith Carrera PA-C Unavailable Neil Kent MD Unavailable Juan Pablo Emmanuel MD Unavailable Audrey Waite PA-C Unavailable [phone] Reason for Visit * Reason Comments Medication Refill Encounter Details Date Type Department Care Team (Late st Contact Info) Description 03/18/[address] [address] Esha Grimm PA-C [id number] [place] [address] Medication Refill Social History Tobacco Use [...] do you attend chur or zoroastrianism services? 1 to 4 times [...] exercise at this level? 30 min 03/10/2023 [place] Depression Scale Answer Date Recorded [place] Depression Score 5 01/14/2021 Last EPDS Self [...] PM CDT Legal Sex Female 4:13 AM INSTRUMENT TECH Gender Identity Female 03/02/2021 5:45 PM CDT Sexual Orientation Straight 02/28/2020 12 :51 AM CDT documented as of this encounter Plan of Treatment Upcoming Encounters Date Type Department Care Team (Late st Contact Info) Description 05/31/2024 8:40 AM INSTRUMENT TECH Therapy Visit [facility] Rehabilitation Services [address] 160 [place] [phone] Ingris Thompson, PT [facility] [address] [place] [address] 106 [place] [address] 05/31/2024 3:30 PM INSTRUMENT TECH Office Visit [facility] Specialty Clinic [address] [phone] Audrey Díaz, Herminia Koo MD [facility] [place] [address] 06/04/2024 3:30 PM INSTRUMENT TECH Office Visit [address] [place] [address] J[place] David, [place] [address] [facility] [address] 06/11/2024 10:30 AM INSTRUMENT TECH Appointment [facility] Respiratory Therapy [address] [place] [phone] Spec, Nurse Only Med 06/18/2024 2:50 PM INSTRUMENT TECH Therapy Visit [facility] Rehabilitation Services [place] [address] [place] [address] [address] [place] [phone] Ingris Thompson, PT [facility] 6 [facility] 106 [place] [address] 06/21/2024 2:00 PM INSTRUMENT TECH Office Visit [facility] Neurology [facility] [address] [place] [address], [address] [place] [phone] [place] [address] [place] [address] Johnny Penn MD 9152 [place] [address] 06/25/2024 8:30 AM INSTRUMENT TECH Office Visit [address] [address] Valery Veronica PA-C [address] [place] [address] 586425 11/28/2024 7:45 AM CDT Virtual Visit [facility] Gastroenterology [address] 4th [place] [phone] Meredith Carrera PA-C 909 [place] [address] documented as of this encounter Visit Diagnoses Diagnosis Anxiety Anxiety state, unspecified documented in this encounter Additional Health Concerns Assessment Noted Time PHQ-9 Depression Total Score: 3 02/07/20 24 9:33 AM CDT documented as of this encounter Care Teams Optometric Aide Relationship Specialty Start Date End Date Esha Grimm PA-C [address] [place] [address] PCP - General Family Medicine 05/04/23 Diana Desir, [facility] 3033 [place] [address] Pharmacist Pharmacist 04/17/21 Rain Galaviz PA-C [address] [place] [address] [address] [facility] [place] [address] Physician Director Hr Communications Dermatology 04/28/21 Tavia Wyatt MD [address] [place] [address] [address] [place] [address] Dermatology 07/14/21 Erica Farrell APRN LEARNING PROGRAM MANAGER [address] [facility] [address] [place] [address] Nurse Practitioner Cardiovascular Disease 09/09/21 Rich Barrett MD [address] 723855 Physician Ophthalmology 01/21/22 Neil Kent MD 500 [place], [place] 274015 Dermatology 02/24/22 Diana Desir, [facility] 3033 [place], [place] 499646 Assigned [place] Pharmacist 04/07/22 Livan Sharif MD [address] [facility] [address] [place], [place] 308325 Cardiovascular Disease 05/14/22 Catherine Cm MD [address] [facility] [place], [place] 231525 Cardiovascular Disease 07/21/22 Valery Veronica, PA-C [address] [place] [address] 68[address] Physician Director Hr Communications Dermatology 07/21/22 Brea Quinn APRN LEARNING PROGRAM MANAGER 500 [place], [place] [phone] Nurse Practitioner Dermatology 09/21/22 Brea Quinn APRN LEARNING PROGRAM MANAGER [address] [place] [address] 673352 Assigned Surgical Provider 10/09/22 05/01/24 [place] [address] [facility] 300 [place], [place] 883837 Assigned Musculoskeletal Provider 10/09/22 05/01/24 Alfonso Renteria MD [address] [facility] 200 [place], [place] [phone] Assigned Neuroscience Provider 04/02/23 Lomeli Radha ARLENE Stovall LEARNING PROGRAM MANAGER 6405 [facility] [address] [place], [place] 613045 Assigned Heart and Vascular Provider 05/28/23 Jelena David OD [address] [facility] [address] [place] [id number] MD Ophthalmology 06/15/23 Esha Grimm PA-C [address] [place] [address] Assigned PCP 07/16/23 Valery Veronica PA-C [address] [place] [address] 876815 Physician Director Hr Communications Dermatology 09/19/23 Rey Tay MD [address] [place] [address] 759055 Gastroenterology 09/20/23 Rocky Zepeda DO [address] [place] [address] 074535 Physician Gastroenterology 09/20/23 Philip Dumont MD [address] [place] [address] 174875 Physician Ophthalmology 09/22/23 Meredith Carrera PA-C [address] [place] [address] Assigned Gastroenterology Provider 11/01/23 Neil Kent MD [address] [address] Dermatology 11/02/23 [place] [address] [place] [address] Neurological Surgery 12/26/23 Audrey Waite PAUcheC 500 [place] [address] Physician Director Hr Communications Dermatology 02/28/24 documented as of this encounter
--- OUTSIDE RECORDS SUMMARY | 2024-05-27 08:46 | XMS_ITS | Encounter Summary ---
Author Organization [place] Address [address] [place] [address] Care Team Providers Care Draw String Knotter Name Role Phone Diana Desir [facility] Unavailable [phone] Rain Galaviz PA-C Unavailable [phone] Tavia Wyatt MD Unavailable Unavailable Erica Farrell STRIP[employer] BLACK [employer] WHITE EDUCATIONAL AUDIOLOGIST Unavailable Rich Barrett MD Unavailable Neil Kent MD Unavailable ThangDiana [facility] Unavailable [phone] Livan Sharif MD Unavailable Catherine Cm MD Unavailable + Valery Veronica PA-C Unavailable [phone] Brea Quinn [employer] WH[employer] EDUCATIONAL AUDIOLOGIST Unavailable Brea Quinn [employer] WHITE EDUCATIONAL AUDIOLOGIST Unavailable Jose Francisco Johnson MD Unavailable Alfonso Renteria MD Unavailable + [phone] Esha Grimm PA-C Primary Care Provider Radha Lomeli [employer] WH[employer] EDUCATIONAL AUDIOLOGIST Unavailable [phone] Jelena David OD Unavailable [phone] Esha Grimm PA-C Unavailable [phone] Valery Veronica PA-C Unavailable Rey Tay MD Unavailable Rocky Zepeda DO Unavailable Philip Dumont MD Unavailable Meredith Carrera PA-C Unavailable [phone] Neil Kent MD Unavailable Juan Pablo Emmanuel MD Unavailable Audrey Waite PA-C Unavailable [phone] Valery Veronica PA-C Unavailable [phone] Encounter Details Date Type Department Care Team (Late st Contact Info) Description 03/05/2024 [facility] Medical Advice [facility] Gastroenterology Clinic [address] [place] [address] Rebecca Moctezuma Social History Tobacco Use Types [...] often do you attend chur ch or mosque services? 1 to 4 times [...] PM CDT Legal Sex Female 4:13 AM LABORER HEADING Gender Identity Female 03/02/2021 5:45 PM CDT Sexual Orientation Straight 02/28/2020 12 :51 AM CDT documented as of this encounter Plan of Treatment Upcoming Encounters Date Type Department Care Team (Late st Contact Info) Description 05/31/2024 8:40 AM LABORER HEADING Therapy Visit [facility] Rehabilitation Services [address] [place] [phone] Ingris Thompson, PT [facility] [address] [place] [address] 039235 05/31/2024 3:30 PM LABORER HEADING Office Visit [facility] Specialty Clinic [address] [phone] Audrey Díaz PA-C Khan, Waseem, MD [address] [place] [address] [phone] 06/04/2024 3:30 PM LABORER HEADING Office Visit [address] [place] [address] Jelena David, [place] [address] [facility] [place] [address] 06/11/2024 10:30 AM LABORER HEADING Appointment [facility] Respiratory Therapy [address] [place] [address] Spec, Nurse Only Med 06/18/2024 2:50 PM LABORER HEADING Therapy Visit [facility] Rehabilitation Services [address] [place] [phone] Ingris Thompson, PT [facility] 516 [facility] 106 [place], [place] 268405 06/21/2024 2:00 PM LABORER HEADING Office Visit [facility] Neurology Clinics - [place] [address] [place] [address], [address] [place] [address] [place] [address] [place] [address] Johnny Penn MD 7698 [place], [place] 204505 06/25/2024 8:30 AM LABORER HEADING Office Visit [address] [phone] Valery Veronica PA-C [address] [place] [address] 11/28/2024 7:45 AM CDT Virtual Visit [facility] Gastroenterology Clinic [address] 4th [place] [phone] Meredith Carrera PA-C [address] [place] [address] 358005 documented as of this encounter Visit Diagnoses Not on filedocumented in this encounter Additional Health Concerns Infection Onset Date Last Indicated Resolved Time Rule Out COVID-19 04/09/2024 04/09/2024 04/10/2024 6:48 PM CDT Assessment Noted Time PHQ-9 Depression Total Score: 3 02/07/20 24 9:33 AM CDT documented as of this encounter Care Teams Draw String Knotter Relationship Specialty Start Date End Date Esha Grimm PA-C [address] [place] [address] PCP - General Family Medicine 05/04/23 Diana Desir, [facility] [address] [place] [address] Pharmacist Pharmacist 04/17/21 Rain Galaviz PA-C [address] [place] [address] [address] [place] [address] Physician Land Surveyor Assistant Dermatology 04/28/21 Tavia Wyatt MD [address] [place] [address] [address] [place] [address] Dermatology 07/14/21 Erica Farrell APRN EDUCATIONAL AUDIOLOGIST 6405 [facility] [address] [place] [address] Nurse Practitioner Cardiovascular Disease 09/09/21 Rich Barrett MD [address] 635855 Physician Ophthalmology 01/21/22 Neil Kent MD 500 [place], [place] [phone] Dermatology 02/24/22 Diana Desir, [facility] 3033 [place], [place] [phone] Assigned MTM Pharmacist 04/07/22 Livan Sharif MD 6405 [facility] [address] [address] 527705 Cardiovascular Disease 05/14/22 Catherine Cm MD [address] 841525 Cardiovascular Disease 07/21/22 Valery Veronica, PA-C [address] [place] [address] 160755 Physician Land Surveyor Assistant Dermatology 07/21/22 Brea Quinn APRN EDUCATIONAL AUDIOLOGIST 500 [place], [place] [phone] Nurse Practitioner Dermatology 09/21/22 Brea Quinn APRN EDUCATIONAL AUDIOLOGIST [address] [place] [address] 828102 Assigned Surgical Provider 10/09/22 05/01/24 [place] [address] 447367 Assigned Musculoskeletal Provider 10/09/22 05/01/24 Alfonso Renteria MD [address] [phone] Assigned Neuroscience Provider 04/02/23 Radha Lomeli APRN EDUCATIONAL AUDIOLOGIST 6405 [facility] [address] [place], [place] 6[address]85 Assigned Heart and Vascular Provider 05/28/23 Jelena David OD 3305 [facility] [address] [place] [id number] MD Ophthalmology 06/15/23 Esha Grimm PA-C [address] [place] [address] Assigned PCP 07/16/23 Valery Veronica PA-C [address] [place] [address] 407595 Physician Land Surveyor Assistant Dermatology 09/19/23 Rey Tay MD [address] [place] [address] 019135 Gastroenterology 09/20/23 Rocky Zepeda DO [address] [place] [address] 325315 Physician Gastroenterology 09/20/23 Philip Dumont MD [address] [place] [address] 425435 Physician Ophthalmology 09/22/23 Mreedith Carrera PA-C [address] [place] [address] Assigned Gastroenterology Provider 11/01/23 Neil Kent MD [address] [place] [address] Dermatology 11/02/23 [place] [address] [place] [address] Neurological Surgery 12/26/23 Audrey Waite PA-C 500 [place] [address] Physician Land Surveyor Assistant Dermatology 02/28/24 Valery Veronica PA-C 577307 [place], [place] [address] Physician Land Surveyor Assistant Dermatology 04/10/24 documented as of this encounter
--- OUTSIDE RECORDS SUMMARY | 2024-05-27 08:46 | XMS_ITS | Encounter Summary ---
Author Organization [place] Address [address] [place] [address] Care Team Providers Care Dermatological Surgeon Name Role Phone Diana Desir [facility] Unavailable [phone] Rain Galaviz PA-C Unavailable Tavia Wyatt MD Unavailable Unavailable Erica Farrell PANEL MONITOR SCREENING TECHNICIAN Unavailable Rich Barrett MD Unavailable Neil Kent MD Unavailable ThangDiana [facility] Unavailable [phone] Livan Sharif MD Unavailable Catherine Cm MD Unavailable + Valery Veronica PA-C Unavailable [phone] Brea Quinn PANEL MONITOR SCREENING TECHNICIAN Unavailable [phone] Brea Quinn PANEL MONITOR SCREENING TECHNICIAN Unavailable Jose Francisco Johnson MD Unavailable Alfonso Renteria MD Unavailable + [phone] Esha Grimm PA-C Primary Care Provider [phone] Radha Lomeli PANEL MONITOR SCREENING TECHNICIAN Unavailable [phone] Jelena David OD Unavailable [place] Esha M PA-C Unavailable [phone] Valery Veronica PA-C Unavailable [phone] Rey Tay MD Unavailable Rocky Zepeda DO Unavailable Philip Dumont MD Unavailable [phone] Meredith Carrera PA-C Unavailable [phone] Neil Kent MD Unavailable Juan Pablo Emmanuel MD Unavailable [phone] Audrey Waite PA-C Unavailable [phone] Reason for Visit * Reason Onset Date Comments Procedure 03/05/2024 Cancel/Reschedul e Encounter Details Date Type Department Care Team (Late st Contact Info) Description 03/05/2024 Telephone [facility] Gastroenterology Clinic [address] [place] [address] None Procedure (Cancel/Reschedule) Social History [...] Answer Date Recorded PHQ-2 Score 1 02/07/2024 [facility] [...] at this level? 30 min 03/10/2023 [place] Depression Scale Answer Date Recorded [place] Depression Score 5 01/14/2021 Last EPDS Self [...] Legal Sex Female 4:13 AM MIDDLE SCHOOL MUSIC TEACHER Gender Identity Female 03/02/2021 5:45 PM [...] Procedure: Upper Endoscopy [EGD] Date: 03/07/2024 Location: [facility]; [address] [place] [address] 5th [place] [address] Surgeon: JUNE Rescheduled: No, Case in depot sent Mychart with call back info Did you cancel or rescheduled an EUS procedure? No. documented in this encounter Plan of Treatment Upcoming Encounters Date Type Department Care Team (Late st Contact Info) Description 05/31/2024 8:40 AM MIDDLE SCHOOL MUSIC TEACHER Therapy Visit [address] 160 [place] [phone] Ingris Thompson, PT [facility] [address] [place] [address] 05/31/2024 3:30 PM MIDDLE SCHOOL MUSIC TEACHER Office Visit [facility] Specialty Clinic [address] [address] Audrey Díaz, Herminia Koo MD [address] [place] [address] 06/04/2024 3:30 PM MIDDLE SCHOOL MUSIC TEACHER Office Visit [address] [place] [address] Jelena David, [address] [place] [address] 06/11/2024 10:30 AM [employer]DLE SCHOOL MUSIC TEACHER Appointment [facility] Respiratory Therapy [address] [place] [address] Spec, Nurse Only Med 06/18/2024 2:50 PM MIDDLE SCHOOL MUSIC TEACHER Therapy Visit [address] [phone] Ingris Thompson, PT [address] [address] 06/21/2024 2:00 PM MIDDLE SCHOOL MUSIC TEACHER Office Visit [facility] Neurology [facility]ics - [place] [address] [facility], [address] [place] [address] [place] [address] [place], [place] 18[address] Johnny Penn MD 1183 [place], [place] 526155 06/25/2024 8:30 AM MIDDLE SCHOOL MUSIC TEACHER Office Visit [address] [phone] Valery Veronica PAUcheC [address] [place] [address] 096715 11/28/2024 7:45 AM CDT Virtual Visit [facility] Gastroenterology Clinic [address] [place] [phone] Meredith Carrera, PAUcheC [address] [place] [address] 373695 documented as of this encounter Visit Diagnoses Not on filedocumented in this encounter Additional Health Concerns Assessment Noted Time PHQ-9 Depression Total Score: 3 02/07/20 24 9:33 AM CDT documented as of this encounter Care Teams Dermatological Surgeon Relationship Specialty Start Date End Date Esha Grimm PA-C [address] [place] [phone] PCP - General Family Medicine 05/04/23 Diana Desir, [facility] [address] [place] [address] Pharmacist Pharmacist 04/17/21 Rain Glaaviz PA-C [address] [place] [address] [address] [place] [address] Physician Oracle Consultant Dermatology 04/28/21 Tavia Wyatt MD [address] [place] [address] [address] [place] [address] Dermatology 07/14/21 Erica Farrell APRN SCREENING TECHNICIAN [address] [place], [place] 7[address] Nurse Practitioner Cardiovascular Disease 09/09/21 Rich Barrett MD [address] [place] [address] 216695 Physician Ophthalmology 01/21/22 Neil Kent MD [address] [place] [address] 741905 Dermatology 02/24/22 [facility] [address] [place] [address] 399526 Assigned [place] Pharmacist 04/07/22 Livan Sharif MD [address], [facility] [address] [place], [place] [address] Cardiovascular Disease 05/14/22 Catherine Cm MD [address] [facility] [address] [place], [place] 048[address] Cardiovascular Disease 07/21/22 Valery Veronica, [place] [address] [place] [address] Physician Oracle Consultant Dermatology 07/21/22 Brea Quinn APRN SCREENING TECHNICIAN 500 [place] [address] Nurse Practitioner Dermatology 09/21/22 Brea Quinn APRN SCREENING TECHNICIAN 6401 [place] [address] Assigned Surgical Provider 10/09/22 05/01/24 [place] [address] [address] Assigned Musculoskeletal Provider 10/09/22 05/01/24 Alfonso Renteria MD [address] 958126 Assigned Neuroscience Provider 04/02/23 Radha Lomeli APRN SCREENING TECHNICIAN [address] [address] Assigned Heart and Vascular Provider 05/28/23 J[place]ena David OD [address] [facility] [place] [address] Ophthalmology 06/15/23 Esha Grimm PA-C [address] [place] [address]27[address] Assigned PCP 07/16/23 Valery Veronica PA-C 909 [place] [address] Physician Oracle Consultant Dermatology 09/19/23 Rey Tay MD 9 [place] [address] MD Gastroenterology 09/20/23 Rocky Zepeda DO 500 [place] [address] Physician Gastroenterology 09/20/23 Philip Dumont MD 6 [place] [address] Physician Ophthalmology 09/22/23 Meredith Carrera PA-C 9 [place] [address] Assigned Gastroenterology Provider 11/01/23 Neil Kent MD [address] 113[address] Dermatology 11/02/23 [place] [address] [place] [address] Neurological Surgery 12/26/23 Audrey Waite PA-C 500 [place] [address] Physician Oracle Consultant Dermatology 02/28/24 documented as of this encounter
--- OUTSIDE RECORDS SUMMARY | 2024-05-27 08:46 | XMS_ITS | Encounter Summary ---
Author Organization [facility] Address [address] [place] [address] Care Team Providers Care National Investigative Producer Name Role Phone Diana Desir [facility] Unavailable Rain Galaviz PA-C Unavailable [phone] Tavia Wyatt MD Unavailable Unavailable Erica Farrell SHIP SCALER LOOM CHANGEOVER OPERATOR Unavailable Rich Barrett MD Unavailable Neil Kent MD Unavailable ThangDiana [facility] Unavailable [phone] Livan Sharif MD Unavailable Catherine Cm MD Unavailable + Valery Veronica PA-C Unavailable [phone] Brea Quinn SHIP SCALER LOOM CHANGEOVER OPERATOR Unavailable Brea Quinn SHIP SCALER LOOM CHANGEOVER OPERATOR Unavailable Jose Francisco Johnson MD Unavailable Alfonso Renteria MD Unavailable + [phone] Esha Grimm PA-C Primary Care Provider Radha Lomeli SHIP SCALER LOOM CHANGEOVER OPERATOR Unavailable [phone] Jelena David OD Unavailable [phone] Esha Grimm PA-C Unavailable [phone] Valery Veronica PA-C Unavailable [phone] Rey Tay MD Unavailable Rocky Zepeda DO Unavailable Philip Dumont MD Unavailable [phone] Meredith Carrera PA-C Unavailable [phone] Niel Kent MD Unavailable Juan Pablo Emmanuel MD Unavailable [phone] Audrey Waite PA-C Unavailable [phone] Encounter Details Date Type Department Care Team [...] attend [facility] or luther[facility] services? 1 to 4 times [...] Score 1 02/07/2024 [facility] - Occupational Stress Questionnaire [...] PM CDT Legal Sex Female 4:13 AM STRATEGY PLANNING CONSULTANT Gender Identity Female 03/02/2021 5:45 PM CDT Sexual Orientation Straight 02/28/2020 12 :51 AM CDT documented as of this encounter Plan of Treatment Upcoming Encounters Date Type Department Care Team (Late st Contact Info) Description 05/31/2024 8:40 AM STRATEGY PLANNING CONSULTANT Therapy Visit [facility] Rehabilitation Services [address] 160 [place] [phone] Ingris Thompson, PT [facility] [address] [place] [address] 05/31/2024 3:30 PM STRATEGY PLANNING CONSULTANT Office Visit [facility] Specialty [facility] [address] [phone] Audrey Díaz, Herminia Koo MD [address] [place] [address] 06/04/2024 3:30 PM STRATEGY PLANNING CONSULTANT Office Visit [address] [place] [phone] Jelena David, SONJA [address] [place] [address] [place] [address] 06/11/2024 10:30 AM STRATEGY PLANNING CONSULTANT Appointment [facility] Respiratory Therapy [address] [place] [address] Spec, Nurse Only Med 06/18/2024 2:50 PM STRATEGY PLANNING CONSULTANT Therapy Visit [facility] Rehabilitation Services [place] [address] [place] [address] [address] [place] [phone] Ingris Thompson, PT [facility] [address] [facility] 106 [place], [place] [address]375 06/21/2024 2:00 PM STRATEGY PLANNING CONSULTANT Office Visit [facility] Neurology Clinics - [place] [address] [facility], [address] [place] [phone] [place] [address] [place], [place] [address] Johnny Penn MD [address] [facility] [address] [place], [place] 191195 06/25/2024 8:30 AM STRATEGY PLANNING CONSULTANT Office Visit [address] [phone] Valery Veronica PA-C [address] [place] [address] 319505 11/28/2024 7:45 AM CDT Virtual Visit [facility] Gastroenterology Clinic [address] 4th [place] [phone] Meredith Carrera PA-C [address] [place] [address] 971805 documented as of this encounter Visit Diagnoses Not on filedocumented in this encounter Additional Health Concerns Assessment Noted Time PHQ-9 Depression Total Score: 3 02/07/20 24 9:33 AM CDT documented as of this encounter Care Teams National Investigative Producer Relationship Specialty Start Date End Date Esha Grimm PA-C [address] [place] [address] PCP - General Family Medicine 05/04/23 Diana Desir, [facility] [address] [place] [address] Pharmacist Pharmacist 04/17/21 Rain Galaviz PA-C [address] [place] [address] [address] [place] [address] Physician Rotary Shear Operator Dermatology 04/28/21 Tavia Wyatt MD [address] [place] [address] [place] [address] Dermatology 07/14/21 Erica Farrell, ARLENE LOOM CHANGEOVER OPERATOR [address] [place], [place] 393985 Nurse Practitioner Cardiovascular Disease 09/09/21 Rich Barrett MD [address] [facility] 9[address] [place], [place] 378915 Physician Ophthalmology 01/21/22 Neil Kent MD 500 [place], [place] 756165 Dermatology 02/24/22 Diana Desir, [facility] [address] [place] [address] Assigned MTM Pharmacist 04/07/22 Livan Sharif MD [address] [place] [address] Cardiovascular Disease 05/14/22 Catherine Cm MD [address] [facility] [address] [place] [address] Cardiovascular Disease 07/21/22 Valery Veronica, PAUcheC [address] [place] [address] Physician Rotary Shear Operator Dermatology 07/21/22 Brea Quinn APRN LOOM CHANGEOVER OPERATOR [address] [place] [address] Nurse Practitioner Dermatology 09/21/22 Brea Quinn APRN LOOM CHANGEOVER OPERATOR 6401 [place] [address] Assigned Surgical Provider 10/09/22 05/01/24 [place] [address] [facility] 300 [place] [address] Assigned Musculoskeletal Provider 10/09/22 05/01/24 Alfonso Renteria MD [address] [facility] 200 [place], [place] 720746 Assigned Neuroscience Provider 04/02/23 Radha Lomeli APRN LOOM CHANGEOVER OPERATOR [address] [facility] [address] [place] [address] Assigned Heart and Vascular Provider 05/28/23 Jelena David OD [address] [facility] [place] [address] MD Ophthalmology 06/15/23 Esha Grimm PA-C [address] [place] [address] Assigned PCP 07/16/23 Valery Veronica PA-C [address] [place] [address] Physician Rotary Shear Operator Dermatology 09/19/23 Rey Tay MD [address] [place] [address] Gastroenterology 09/20/23 Rocky Zepeda DO [address] [place] [address] Physician Gastroenterology 09/20/23 Philip Dumont MD [address] [place] [address] Physician Ophthalmology 09/22/23 Meredith Carrera PA-C [address] [place] [address] Assigned Gastroenterology Provider 11/01/23 Neil Kent MD [address] 106390 Dermatology 11/02/23 [place] [address] [place] [address] Neurological Surgery 12/26/23 Audrey Waite PA-C 500 [place] [address] Physician Rotary Shear Operator Dermatology 02/28/24 documented as of this encounter
--- OUTSIDE RECORDS SUMMARY | 2024-05-27 08:46 | XMS_ITS | Encounter Summary ---
Author Organization [facility] Address [address] [place] [address] Care Team Providers Care Soccer Ball Assembler Name Role Phone Diana Desir [facility] Unavailable Rain Galaviz PA-C Unavailable Tavia Wyatt MD Unavailable Unavailable Erica Farrell WEBBING SUPERVISOR HAIR PREPARER Unavailable Rich Barrett MD Unavailable Neil Kent MD Unavailable ThangDiana [facility] Unavailable [phone] Livan Sharif MD Unavailable Catherine Cm MD Unavailable + Valery Veronica PA-C Unavailable [phone] Brea Quinn WEBBING SUPERVISOR HAIR PREPARER Unavailable Brea Quinn WEBBING SUPERVISOR HAIR PREPARER Unavailable Jose Francisco Johnson MD Unavailable Alfonso Renteria MD Unavailable + [phone] Esha Grimm PA-C Primary Care Provider Radha Lomeli WEBBING SUPERVISOR HAIR PREPARER Unavailable [phone] Jelena David OD Unavailable Esha Grimm PA-C Unavailable [phone] Valery Veronica-C Unavailable [phone] Rey Tay MD Unavailable Rocky Zepeda DO Unavailable Philip Dumont MD Unavailable [phone] Meredith Carrera PA-C Unavailable [phone] Neil Kent MD Unavailable Juan Pablo Emmanuel MD Unavailable [phone] Audrey Waite PA-C Unavailable [phone] Encounter Details Date Type Department Care Team [...] do you attend chur or mormon services? 1 to 4 times [...] PHQ-2 Score 1 02/07/2024 [facility] - Occupational Stress Questionnaire Answer [...] exercise at this level? 30 min 03/10/2023 [place] Depression Scale Answer Date Recorded [place] Depression Score 5 01/14/2021 Last EPDS Self [...] PM CDT Legal Sex Female 4:13 AM GEL COATER Gender Identity Female 03/02/2021 5:45 PM CDT Sexual Orientation Straight 02/28/2020 12 :51 AM CDT documented as of this encounter Plan of Treatment Upcoming Encounters Date Type Department Care Team (Late st Contact Info) Description 05/31/2024 8:40 AM GEL COATER Therapy Visit [facility] Rehabilitation Services [address] [place] [phone] Ingris Thompson, PT [facility] [address] [place] [address] 871535 05/31/2024 3:30 PM GEL COATER Office Visit [facility] Specialty [address] [phone] Audrey Díaz, Herminia Koo MD [address] [place] [address] 06/04/2024 3:30 PM GEL COATER Office Visit [place] [address] [facility] [address] [place] [phone] Jelena David, SONJA [address] [place] [address] [place] K[place] [address] 06/11/2024 10:30 AM GEL COATER Appointment [facility] Respiratory Therapy [address] [place] [address] Spec, Nurse Only Med 06/18/2024 2:50 PM GEL COATER Therapy Visit [facility] Rehabilitation Services [place] [address] [place] [address] [address] [place] [phone] Ingris Thompson, PT [facility] 516 [facility] 106 [place], [place] 14[address] 06/21/2024 2:00 PM GEL COATER Office Visit [facility] Neurology Clinics - [place] [address] [facility], [address] [place] [phone] [place] [address] [place], [place] 674987 Johnny Penn MD 0577 [place], [place] 127455 06/25/2024 8:30 AM GEL COATER Office Visit [address] [phone] Valery Veronica PA-C [address] [place] [address] 817835 11/28/2024 7:45 AM CDT Virtual Visit [facility] Gastroenterology Clinic [address] 4th [place] [phone] Meredith Carrera PA-C [address] [place] [address] 856865 documented as of this encounter Visit Diagnoses Not on filedocumented in this encounter Additional Health Concerns Assessment Noted Time PHQ-9 Depression Total Score: 3 02/07/20 24 9:33 AM CDT documented as of this encounter Care Teams Soccer Ball Assembler Relationship Specialty Start Date End Date Esha Grimm PA-C [address] [place] [address] PCP - General Family Medicine 05/04/23 Diana Desir, [facility] [address] [place] [address] Pharmacist Pharmacist 04/17/21 Rain Galaviz PA-C [address] [place] [address] [address] [place] [address] Physician Enterprise Systems Architect Dermatology 04/28/21 Tavia Wyatt MD [address] [place] [address] [address] [facility] [place] [address] Dermatology 07/14/21 Erica Farrell, ARLENE HAIR PREPARER [address] [place] [address] Nurse Practitioner Cardiovascular Disease 09/09/21 Rich Barrett MD [address] [facility] 9A [place], [place] 7[address]25 Physician Ophthalmology 01/21/22 Neil Kent MD 500 [place], [place] 506285 Dermatology 02/24/22 Diana Desir, [facility] [address] [place] [address] Assigned MTM Pharmacist 04/07/22 Livan Sharif MD [address] [facility] [address] [place] [address] Cardiovascular Disease 05/14/22 Catherine Cm MD 6405 [facility] [address] [place] [address] Cardiovascular Disease 07/21/22 Valery Veronica PA-C 909 [place] [address] Physician Enterprise Systems Architect Dermatology 07/21/22 Brea Quinn APRN HAIR PREPARER 500 [place] [address] Nurse Practitioner Dermatology 09/21/22 Brea Quinn APRN HAIR PREPARER 6401 [place] [address] Assigned Surgical Provider 10/09/22 05/01/24 [place] [address] [address] [facility] 300 [place] [address] Assigned Musculoskeletal Provider 10/09/22 05/01/24 Alfonso Renteria MD [address] [facility] 200 [place], [place] 322236 Assigned Neuroscience Provider 04/02/23 Radha Lomeli APRN HAIR PREPARER 6405 [facility] [address] [place] 313025 Assigned Heart and Vascular Provider 05/28/23 Jelena David OD [address] [facility] [place] [address] MD Ophthalmology 06/15/23 Esha Grimm PA-C [address] [place] [address] Assigned PCP 07/16/23 Valery Veronica PA-C [address] [place] [address] Physician Enterprise Systems Architect Dermatology 09/19/23 Rey Tay MD [address] [place] [address] MD Gastroenterology 09/20/23 Rocky Zepeda DO [address] [place] [address] Physician Gastroenterology 09/20/23 Philip Dumont MD [address] [place] [address] Physician Ophthalmology 09/22/23 Meredith Carrera PA-C [address] [place] [address] Assigned Gastroenterology Provider 11/01/23 Neil Kent MD [address] 443210 Dermatology 11/02/23 [place] [address] [place] [address] Neurological Surgery 12/26/23 Audrey Waite PA-C 500 [place] [address] Physician Enterprise Systems Architect Dermatology 02/28/24 documented as of this encounter
--- OUTSIDE RECORDS SUMMARY | 2024-05-27 08:46 | XMS_ITS | Encounter Summary ---
Author Organization [facility] Address [address] [place] [address] Care Team Providers Care Precinct Captain Name Role Phone Diana Desir [facility] Unavailable Rain Galaviz PA-C Unavailable Tavia Wyatt MD Unavailable Unavailable Erica Farrell MOLD CLEANER JETTING MACHINE OPERATOR Unavailable Rich Barrett MD Unavailable Neil Kent MD Unavailable ThangDiana [facility] Unavailable [phone] Livan Sharif MD Unavailable Catherine Cm MD Unavailable + Valery Veronica PA-C Unavailable [phone] Brea Quinn MOLD CLEANER JETTING MACHINE OPERATOR Unavailable Brea Quinn MOLD CLEANER JETTING MACHINE OPERATOR Unavailable Jose Francisco Johnson MD Unavailable Alfonso Renteria MD Unavailable + [phone] Esha Grimm PA-C Primary Care Provider [phone] Radha Lomeli MOLD CLEANER JETTING MACHINE OPERATOR Unavailable [phone] Jelena David OD Unavailable Esha Grimm PA-C Unavailable [phone] Valery Veronica PA-C Unavailable Rey Tay MD Unavailable Rocky Zepeda DO Unavailable Philip Dumont MD Unavailable Meredith Carrera PA-C Unavailable Neil Kent MD Unavailable Juan Pablo Emmanuel MD Unavailable Audrey Waite PA-C Unavailable [phone] Valery Veronica PA-C Unavailable Encounter Details Date Type Department Care Team (Late st Contact Info) Description 03/06/2024 MyC Medical Advice [facility] Spine and Neurosurgery [address] [place] [address] Ebony Cid APRN [facility] 500 [place] [address] Social History Tobacco Use Types [...] Answer Date Recorded PHQ-2 Score 1 02/07/2024 [facility] [...] exercise at this level? 30 min 03/10/2023 [place] Depression Scale Answer Date Recorded [place] Depression Score 5 01/14/2021 Last EPDS Self [...] PM CDT Legal Sex Female 4:13 AM NUTRITION COORDINATOR Gender Identity Female 03/02/2021 5:45 PM CDT Sexual Orientation Straight 02/28/2020 12 :51 AM CDT documented as of this encounter Plan of Treatment Upcoming Encounters Date Type Department Care Team (Late st Contact Info) Description 05/31/2024 8:40 AM NUTRITION COORDINATOR Therapy Visit [facility] Rehabilitation Services [address] 160 [place] [phone] Ingris Thompson, PT [facility] [address] [place] [address] 106 [place] [address] 05/31/2024 3:30 PM NUTRITION COORDINATOR Office Visit [facility] Specialty Clinic [place] [address] [place] [phone] Audrey Díaz, Herminia Koo MD [facility] [place], [place] [address] 06/04/2024 3:30 PM NUTRITION COORDINATOR Office Visit [facility] [place] [address] [facility] [address] [place] [phone] Jelena David, OD 3305 [facility] [place] [address] 06/11/2024 10:30 AM NUTRITION COORDINATOR Appointment [facility] Respiratory Therapy [address] [place] [phone] Spec, Nurse Only Med 06/18/2024 2:50 PM NUTRITION COORDINATOR Therapy Visit [facility] Rehabilitation Services [address] [place] [phone] Ingris Thompson, PT [facility] 6 [facility] 106 [place], [place] [address] 06/21/2024 2:00 PM NUTRITION COORDINATOR Office Visit [facility] Neurology Clinics - [place] [address] [place] [address], [address] [place] [phone] [place] [address] [place] [address] [place] 94[address] Johnny Penn MD 6597 [place], [place] 587455 06/25/2024 8:30 AM NUTRITION COORDINATOR Office Visit [address] [address] Valery Veronica, PA-C [address] [place] [address] 11/28/2024 7:45 AM CDT Virtual Visit [facility] Gastroenterology [address] 4th [place] [phone] Meredith Carrera PA-C 909 [place] [address] documented as of this encounter Visit Diagnoses Not on filedocumented in this encounter Additional Health Concerns Infection Onset Date Last Indicated Resolved Time Rule Out COVID-19 04/09/2024 04/09/2024 04/10/2024 6:48 PM CDT Assessment Noted Time PHQ-9 Depression Total Score: 3 02/07/20 24 9:33 AM CDT documented as of this encounter Care Teams Precinct Captain Relationship Specialty Start Date End Date Esha Grimm PA-C [address] [place] [phone] PCP - General Family Medicine 05/04/23 Diana Desir, [facility] [address] [place], [place] 07[address]16 Pharmacist Pharmacist 04/17/21 Rain Galaviz PA-C [address] [place] [address] DR [address] [place] [address] Physician Fans Clerk Dermatology 04/28/21 Tavia Wyatt MD [address] [place] [address] [address] [place] [address] Dermatology 07/14/21 Erica Farrell APRN JETTING MACHINE OPERATOR 6405 [facility] [address] [place] [address] Nurse Practitioner Cardiovascular Disease 09/09/21 Rich Barrett MD 516 [facility] 9A [place], [place] 847[address] Physician Ophthalmology 01/21/22 Neil Kent MD 500 [place] [address] Dermatology 02/24/22 Diana Desir, [facility] 3033 [place] [address] Assigned MTM Pharmacist 04/07/22 Livan Sharif MD [address] [facility]00 [place] [address]95 Cardiovascular Disease 05/14/22 Catherine Cm MD [address] [place] [address] [place] 517715 Cardiovascular Disease 07/21/22 Valery Veroniac, PAUcheC 909 [place], [place] 212185 Physician Fans Clerk Dermatology 07/21/22 Brea Quinn APRN JETTING MACHINE OPERATOR 500 [place] [address] Nurse Practitioner Dermatology 09/21/22 Brea Quinn APRN JETTING MACHINE OPERATOR 6401 [place] [address] Assigned Surgical Provider 10/09/22 05/01/24 [place] [address] [place] [address] Assigned Musculoskeletal Provider 10/09/22 05/01/24 Alfonso Renteria MD [address] [facility] DANNI 200 [place] [address] Assigned Neuroscience Provider 04/02/23 Lomeli Radha ARLENE Stovall JETTING MACHINE OPERATOR [address] [place], [place] 597075 Assigned Heart and Vascular Provider 05/28/23 Jelena David OD [address] [facility] [place] [address] MD Ophthalmology 06/15/23 Esha Grimm PA-C [address] [place] [phone] Assigned PCP 07/16/23 Valery Veronica PA-C [address] [place] [address] 241415 Physician Fans Clerk Dermatology 09/19/23 Rey Tay MD [address] [place] [address] 724815 Gastroenterology 09/20/23 Rocky Zepeda DO [address] [place] [address] 736885 Physician Gastroenterology 09/20/23 Philip Dumont MD [address] [place] [address] 173435 Physician Ophthalmology 09/22/23 Meredith Carrera PA-C [address] [place] [address] Assigned Gastroenterology Provider 11/01/23 Neil Kent MD [address] [address] Dermatology 11/02/23 [place] [address] [place] [address] [address] Neurological Surgery 12/26/23 Audrey Waite PA-C 500 [place] [address] Physician Fans Clerk Dermatology 02/28/24 Valery Veronica PA-C 995494 [place] [address] Physician Fans Clerk Dermatology 04/10/24 documented as of this encounter
--- OUTSIDE RECORDS SUMMARY | 2024-05-27 08:46 | XMS_ITS | Encounter Summary ---
Author Organization [place] Address [address] [place] [address] Care Team Providers Care Wastewater Superintendent Name Role Phone Diana Desir [facility] Unavailable Rain Galaviz PA-C Unavailable Tavia Wyatt MD Unavailable Unavailable Erica Farrell EPITAXIAL REACTOR OPERATOR FINANCIAL SERVICES ASSISTANT Unavailable Rich Barrett MD Unavailable Neil Kent MD Unavailable ThangDiana [facility] Unavailable [phone] Livan Sharif MD Unavailable Catherine Cm MD Unavailable + Valery Veronica PA-C Unavailable [phone] Brea Quinn EPITAXIAL REACTOR OPERATOR FINANCIAL SERVICES ASSISTANT Unavailable Brea Quinn EPITAXIAL REACTOR OPERATOR FINANCIAL SERVICES ASSISTANT Unavailable Jose Francisco Johnson MD Unavailable Alfonso Renteria MD Unavailable + [phone] Esha Grimm PA-C Primary Care Provider Radha Lomeli EPITAXIAL REACTOR OPERATOR FINANCIAL SERVICES ASSISTANT Unavailable Jelena David OD Unavailable Wicho Grimmlincoln Medina PA-C Unavailable [phone] Valery Veronica PA-C Unavailable Rey Tay MD Unavailable Rocky Zepeda DO Unavailable Philip Dumont MD Unavailable Meredith Carrera PA-C Unavailable Neil Kent MD Unavailable Juan Pablo Emmanuel MD Unavailable Audrey Waite PA-C Unavailable [phone] Reason for Referral * CV Testing (Routine) - Closed Specialty Diagnoses / Procedures Referred By Contac t Referred To Contact Cardiology Diagnoses SVT (supraventricular tachycardia) (H) Procedures Cardiac Event Monitor Adult Pediatric Radha Lomeli, ARLENE FINANCIAL SERVICES ASSISTANT [address] [place] [address] Phone: tel: fax: [facility] [address] [place] [address] [place] [address] Phone: tel: fax: Referral ID Status Reason Start Date Expiration Date Visits Re quested Visits Authorized [id number] Closed 03/07/2024 03/07/2025 1 1 Reason for Visit * CV Testing (Routine) - Closed Specialty Diagnoses / Procedures Referred By Contac t Referred To Contact Cardiology Diagnoses SVT (supraventricular tachycardia) (H) Procedures Cardiac Event Monitor Adult Pediatric Radha Lomeli APRN FINANCIAL SERVICES ASSISTANT [address] [place] [address] Phone: tel: fax: [facility] [address] [place] [address] Phone: tel: fax: Referral ID Status Reason Start Date Expiration Date Visits Re quested Visits Authorized [id number] Closed 03/07/2024 03/07/2025 1 1 Encounter Details Date Type Department Care Team (Latest Contact Info) Description 03/08/2024 11:00 AM CDT - 03/08/2024 11:59 PM CDT Hospital Encounter [facility] [address] [place] [address] Radha Lomeli E, EPITAXIAL REACTOR OPERATOR FINANCIAL SERVICES ASSISTANT [address] [place] [address] SVT (supraventricular tachycardia) (H) Discharge Disposition: Home or Self Care Social [...] PHQ-2 Score 1 02/07/2024 [facility] - Occupational Stress Questionnaire [...] exercise at this level? 30 min 03/10/2023 [place] Depression Scale Answer Date Recorded [place] Depression Score 5 01/14/2021 Last EPDS Self [...] PM CDT Legal Sex Female 4:13 AM ORAL AND MAXILLOFACIAL PATHOLOGIST Gender Identity Female 03/02/2021 5:45 PM CDT [...] healed then stop 80 g 2 10/01/2022 Lidocaine (LIDOCARE) 4 % PatchIndications: Acute left-sided low back pain with left-sided sciatica,Sacroili ac joint pain,Neck pain Place 1 patch onto the skin every 24 hours To prevent lidocaine toxicity, patient should be patch free for 12 hrs daily. 30 patch 1 10/11/2022 4 metoprolol succinate ER (TOPROL XL) 25 MG 24 hr tabletIndications :Palpitations Take 0.5 tablets (12.5 mg) by mouth daily 45 tablet 1 11/22/2023 4 PARoxetine (PAXIL) 40 MG tabletIndications :Anxiety Take 1 tablet (40 mg) by mouth every morning 90 tablet 1 09/21/2023 4 documented as of this encounter Progress Notes * Saleem Gomez - 03/08/2024 11:18 AM CDT 14-day event monitor placed. documented in this encounter Plan of Treatment Upcoming Encounters Date Type Department Care Team (Late st Contact Info) Description 05/31/2024 8:40 AM ORAL AND MAXILLOFACIAL PATHOLOGIST [facility] [address] 160 [place] [phone] Ingris Thompson, PT [facility] [address] [place] [address] 106 [place] [address] 05/31/2024 3:30 PM ORAL AND MAXILLOFACIAL PATHOLOGIST Office Visit [address] [phone] Audrey Díaz, Herminia Koo MD [address] [place] [address] 06/04/2024 3:30 PM ORAL AND MAXILLOFACIAL PATHOLOGIST [facility] [address] [facility] [address] [place] [address] Jelena David, OD [address] [facility] [place] [address] 06/11/2024 10:30 AM ORAL AND MAXILLOFACIAL PATHOLOGIST Appointment [facility] Respiratory Therapy [address] [place] [phone] Spec, Nurse Only Med 06/18/2024 2:50 PM ORAL AND MAXILLOFACIAL PATHOLOGIST Therapy Visit [facility] [address] [place] [phone] Ingris Thompson, PT [facility] 6 [facility] 106 [place] [address] 06/21/2024 2:00 PM ORAL AND MAXILLOFACIAL PATHOLOGIST [facility] [address] [place] [address], [address] [place] [phone] [place] [address] [place] [address] Johnny Penn MD 6510 [place], [place] 4[address] 06/25/2024 8:30 AM ORAL AND MAXILLOFACIAL PATHOLOGIST Office Visit [address] [address] Valery Veronica, PA-C [address] [place] [address] 286875 11/28/2024 7:45 AM CDT Virtual [facility] [place] [address] [facility] 4th [place] [phone] Meredith Carrera PA-C 909 [place] [address] documented as of this encounter Procedures Procedure Name Priority Date/Time Associated Diagnosis Comments CARDIAC EVENT MONITOR APPLICATION AND PROVIDER INTERPRETATION Routine 03/08/2024 11:18 AM CDT SVT (supraventricular tachycardia) (H) documented in this encounter Results * CARDIAC EVENT MONITOR APPLICATION AND PROVIDER INTERPRETATION (03/08/2024 11:18 AM CDT) Anatomical Region Laterality Modality Other Radha Armani JACOBS FINANCIAL SERVICES ASSISTANT CV CARDIAC SERVICES ORDERA BLES Final Result documented in this encounter Visit Diagnoses Diagnosis SVT (supraventricular tachycardia) (H) Other specified cardiac dysrhythmias documented in this encounter Additional Health Concerns Assessment Noted Time PHQ-9 Depression Total Score: 3 02/07/20 24 9:33 AM CDT documented as of this encounter Care Teams Wastewater Superintendent Relationship Specialty Start Date End Date Esha Grimm PA-C [address] [place] [address] PCP - General Family Medicine 05/04/23 Diana Desir, [facility] 3033 [place] [address] Pharmacist Pharmacist 04/17/21 Rain Galaviz PA-C [address] [place] [address] [address] [place] [address] Physician Sales And Events Coordinator Dermatology 04/28/21 Tavia Wyatt MD [address] [place] [address] [place] [address] Dermatology 07/14/21 Erica Farrell APRN FINANCIAL SERVICES ASSISTANT [address] [place], [place] 8[address] Nurse Practitioner Cardiovascular Disease 09/09/21 Rich Barrett MD 516 [facility], [facility] [address] [place], [place] 7[address] Physician Ophthalmology 01/21/22 Neil Kent MD 500 [place], [place] 217295 Dermatology 02/24/22 Diana Desir, [facility] [address] [place], [place] 531046 Assigned [facility] Pharmacist 04/07/22 Livan Sharif MD [address], [facility]00 [place] [address] Cardiovascular Disease 05/14/22 Catherine Cm MD 6405 [facility] [address] 581525 Cardiovascular Disease 07/21/22 Valery Veronica, PA-C [address] [place] [address] 943015 Physician Sales And Events Coordinator Dermatology 07/21/22 Brea Quinn APRN FINANCIAL SERVICES ASSISTANT 500 [place], [place] 192555 Nurse Practitioner Dermatology 09/21/22 Brea Quinn APRN FINANCIAL SERVICES ASSISTANT 6401 [facility] [place] 577092 Assigned Surgical Provider 10/09/22 05/01/24 [place] [address] [facility] 300 [place] [address] Assigned Musculoskeletal Provider 10/09/22 05/01/24 Alfonso Renteria MD [address] [facility] 200 [place] [address] Assigned Neuroscience Provider 04/02/23 Radha Lomeli APRN FINANCIAL SERVICES ASSISTANT [address] [facility] [address] [place] [address] Assigned Heart and Vascular Provider 05/28/23 Jelena David OD [address] [facility] [address] Ophthalmology 06/15/23 Esha Grimm PA-C [address] [place] [phone] Assigned PCP 07/16/23 Valery Veronica PA-C [address] [place] [address] 089325 Physician Sales And Events Coordinator Dermatology 09/19/23 Rey Tay MD [address] [place] [address]995 Gastroenterology 09/20/23 Rocky Zepeda DO [address] [place] [address] 077765 Physician Gastroenterology 09/20/23 Philip Dumont MD 516 [place] [address] Physician Ophthalmology 09/22/23 Meredith Carrera PA-C [address] [place] [address] 250795 Assigned Gastroenterology Provider 11/01/23 Neil Kent MD [address] 757890 Dermatology 11/02/23 [place] [address] [place], [place] 9[address] Neurological Surgery 12/26/23 Audrey Waite PA-C 500 [place], [place] 468715 Physician Sales And Events Coordinator Dermatology 02/28/24 documented as of this encounter
--- OUTSIDE RECORDS SUMMARY | 2024-05-27 08:46 | XMS_ITS | Encounter Summary ---
Author Organization [place] Address [address] [place] [address] Care Team Providers Care Plastic Bubble Packer Name Role Phone Diana Desir [facility] Unavailable Rain Galaviz PA-C Unavailable Tavia Wyatt MD Unavailable Unavailable Erica Farrell BUFFER AUTOMATIC INFORMATION TECHNOLOGY PROGRAM MANAGER Unavailable Rich Barrett MD Unavailable Neil Kent MD Unavailable ThangDiana [facility] Unavailable [phone] Livan Sharif MD Unavailable Catherine Cm MD Unavailable + Valery Veronica PA-C Unavailable [phone] Brea Quinn BUFFER AUTOMATIC INFORMATION TECHNOLOGY PROGRAM MANAGER Unavailable Brea Quinn BUFFER AUTOMATIC INFORMATION TECHNOLOGY PROGRAM MANAGER Unavailable Jose Francisco Johnson MD Unavailable Alfonso Renteria MD Unavailable + [phone] Esha Grimm PA-C Primary Care Provider [phone] Radha Lomeli BUFFER AUTOMATIC INFORMATION TECHNOLOGY PROGRAM MANAGER Unavailable [phone] Jelena David OD Unavailable [phone] Esha Grimm PA-C Unavailable [phone] Valery Veronica PA-C Unavailable [phone] Rey Tay MD Unavailable Rocky Zepeda DO Unavailable Philip Dumont MD Unavailable [phone] Meredith Carrera PA-C Unavailable [phone] Neil Kent MD Unavailable Juan Pablo Emmanuel MD Unavailable [phone] Audrey Waite PA-C Unavailable [phone] Encounter Details Date Type Department Care Team [...] do you attend [facility] or congregational services? 1 to 4 [...] Answer Date Recorded PHQ-2 Score 1 02/07/2024 [facility] - Occupational Stress Questionnaire Answer Date [...] PM CDT Legal Sex Female 4:13 AM RACE STARTER Gender Identity Female 03/02/2021 5:45 PM CDT Sexual Orientation Straight 02/28/2020 12 :51 AM CDT documented as of this encounter Plan of Treatment Upcoming Encounters Date Type Department Care Team (Late st Contact Info) Description 05/31/2024 8:40 AM RACE STARTER Therapy Visit [facility] Services [address] 160 [place] [phone] Ingris Thompson, PT [facility] [address] [place] [address] 612785 05/31/2024 3:30 PM RACE STARTER Office Visit [facility] Specialty Clinic [address] [phone] Audrey Díaz, Herminia Koo MD [address] [place] [address] 06/04/2024 3:30 PM RACE STARTER Office Visit [address] [place] [phone] Jelena David, SONJA [address] [place] [address] [place] [address] 06/11/2024 10:30 AM RACE STARTER Appointment [facility] Res[facility] [address] [place] [address] Spec, Nurse Only Med 06/18/2024 2:50 PM RACE STARTER Therapy Visit [facility] Rehabilitation Services [place] [address] [place] [address] [address] [place] [phone] Ingris Thompson, PT [facility] 516 [facility] 106 [place], [place] 8[address]25 06/21/2024 2:00 PM RACE STARTER Office Visit [facility] Neurology Clinics - [place] [address]45 [facility], [address] [place] [phone] [place] [address] [place], [place] [address] Johnny Penn MD 6540 [facility] [place], [place] [address]115 06/25/2024 8:30 AM RACE STARTER Office Visit [address] [phone] Valery Veronica PA-C [address] [place] [address] 500105 11/28/2024 7:45 AM CDT Virtual Visit [facility] Gastroenterology Clinic [address] 4th [place] [phone] Meredith Carrera PA-C [address] [place] [address] 407765 documented as of this encounter Visit Diagnoses Not on filedocumented in this encounter Additional Health Concerns Assessment Noted Time PHQ-9 Depression Total Score: 3 02/07/20 24 9:33 AM CDT documented as of this encounter Care Teams Plastic Bubble Packer Relationship Specialty Start Date End Date Esha Grimm PA-C [address] [place] [address] PCP - General Family Medicine 05/04/23 Diana Desir, [facility] [address] [place] [address] Pharmacist Pharmacist 04/17/21 Rain Galaviz PA-C [address] [place] [address] [address] [place] [address] Physician Sawmill Or Timber Yard Worker Dermatology 04/28/21 Tavia Wyatt MD [address] [place] [address] [facility] [place] [address] Dermatology 07/14/21 Erica Farrell, ARLENE INFORMATION TECHNOLOGY PROGRAM MANAGER [address] [place], [place] 4[address] Nurse Practitioner Cardiovascular Disease 09/09/21 Rich Barrett MD 516 [facility] 9A [place], [place] 163695 Physician Ophthalmology 01/21/22 Neil Kent MD 500 [place], [place] 778435 Dermatology 02/24/22 Diana Desir, [facility] [address] [place] [address] Assigned MTM Pharmacist 04/07/22 Livan Sharif MD [address] [place] [address] Cardiovascular Disease 05/14/22 Catherine Cm MD [address] [facility] [address] [place] [address] Cardiovascular Disease 07/21/22 Valery Veronica, PAUcheC [address] [place] [address] Physician Sawmill Or Timber Yard Worker Dermatology 07/21/22 Brea Quinn APRN INFORMATION TECHNOLOGY PROGRAM MANAGER [address] [place] [address] Nurse Practitioner Dermatology 09/21/22 Brea Quinn APRN INFORMATION TECHNOLOGY PROGRAM MANAGER 6401 [place] [address] Assigned Surgical Provider 10/09/22 05/01/24 [place] [address] [address] [facility] 300 [place] [address] Assigned Musculoskeletal Provider 10/09/22 05/01/24 Alfonso Renteria MD [address]75 [facility] 200 [place], [place] 860626 Assigned Neuroscience Provider 04/02/23 Radha Lomeli APRN INFORMATION TECHNOLOGY PROGRAM MANAGER [address] [facility] [address] [address] [place] [address] Assigned Heart and Vascular Provider 05/28/23 Jelena David OD [address] [facility] [place] [address] MD Ophthalmology 06/15/23 Esha Grimm PA-C [address] [place] [address] Assigned PCP 07/16/23 Valery Veronica PA-C [address] [place] [address] Physician Sawmill Or Timber Yard Worker Dermatology 09/19/23 Rey Tay MD [address] [place] [address] Gastroenterology 09/20/23 Rocky Zepeda DO [address] [place] [address] Physician Gastroenterology 09/20/23 Philip Dumont MD [address] [place] [address] Physician Ophthalmology 09/22/23 Meredith Carrera PA-C [address] [place] [address] Assigned Gastroenterology Provider 11/01/23 Neil Kent MD [address] 9577[address] Dermatology 11/02/23 [place] [address] [place] [address] Neurological Surgery 12/26/23 Audrey Waite PA-C 500 [place] [address] Physician Sawmill Or Timber Yard Worker Dermatology 02/28/24 documented as of this encounter
--- OUTSIDE RECORDS SUMMARY | 2024-05-27 08:46 | XMS_ITS | Encounter Summary ---
Author Organization [place] Address [address] [place] [address] Care Team Providers Care Senior Business Manager Name Role Phone Diana Desir [facility] Unavailable Rain Galaviz PA-C Unavailable Tavia Wyatt MD Unavailable Unavailable Erica Farrell RATTAN WORKER FITNESS AND WELLNESS INSTRUCTOR Unavailable Rich Barrett MD Unavailable Neil Kent MD Unavailable ThangDiana [facility] Unavailable [phone] Livan Sharif MD Unavailable Catherine Cm MD Unavailable + Valery Veronica PA-C Unavailable [phone] Brea Quinn RATTAN WORKER FITNESS AND WELLNESS INSTRUCTOR Unavailable Brea Quinn RATTAN WORKER FITNESS AND WELLNESS INSTRUCTOR Unavailable Jose Francisco Johnson MD Unavailable Alfonso Renteria MD Unavailable + [phone] Esha Grimm PA-C Primary Care Provider [phone] Radha Lomeli RATTAN WORKER FITNESS AND WELLNESS INSTRUCTOR Unavailable [phone] Jelena David OD Unavailable Esha GrimmC Unavailable [phone] Valery Veronica-C Unavailable [phone] Rey Tay MD Unavailable Duane Rockyanne [facility] Unavailable Philip Dumont MD Unavailable Meredith Carrera PA-C Unavailable [phone] Neil Kent MD Unavailable Juan Pablo Emmanuel MD Unavailable Audrey Waite PA-C Unavailable Reason for Visit * Reason Onset Date Comments Letter for School/Work 03/01/2024 Encounter Details Date Type Department Care Team (Late st Contact Info) Description 03/01/2024 Telephone [facility] [address] [place] [address] Esha Grimm PA-C [address] [place] [phone] Letter for School/Work Social History Tobacco [...] often do you attend [facility] or denominational services? 1 to 4 times [...] Date Recorded PHQ-2 Score 1 02/07/2024 [facility] [...] exercise at this level? 30 min 03/10/2023 [place] Depression Scale Answer Date Recorded [place] Depression Score 5 01/14/2021 Last EPDS Self [...] PM CDT Legal Sex Female 4:13 AM DROPPER TANK STORAGE Gender Identity Female 03/02/2021 5:45 PM CDT [...] review. Patient OK with getting letter via mychart. Isabelle Avendano RN on 03/01/2024 at 9:06 AM documented in this encounter Plan of Treatment Upcoming Encounters Date Type Department Care Team (Late st Contact Info) Description 05/31/2024 8:40 AM DROPPER TANK STORAGE Therapy Visit [address] [phone] Ingris Thompson, PT [facility] [address] [place] [address] 102575 05/31/2024 3:30 PM DROPPER TANK STORAGE Office Visit [address] [phone] Audrey Díaz, Herminia Koo MD [address] [place] [address] 06/04/2024 3:30 PM DROPPER TANK STORAGE Office Visit [address] [place] [phone] Jelena David, [address] [place] [address] 06/11/2024 10:30 AM DROPPER TANK STORAGE Appointment [facility] Res[facility] Therapy [address] [place] [phone] Spec, Nurse Only Med 06/18/2024 2:50 PM DROPPER TANK STORAGE Therapy Visit [address] [phone] Ingris Thompson, PT [address] [address] 06/21/2024 2:00 PM DROPPER TANK STORAGE Office Visit [facility] [place] [address] [facility], [address] [place] [phone] [place] [address] [place] [address] Johnny Penn MD 3145 [place], [place] 346985 06/25/2024 8:30 AM DROPPER TANK STORAGE Office Visit [address] [phone] Valery Veronica PA-C [address] [place] [address] 11/28/2024 7:45 AM CDT Virtual Visit [facility] [address] [phone] Meredith Carrera PABaldo [address] [place] [address] 405855 documented as of this encounter Visit Diagnoses Not on filedocumented in this encounter Additional Health Concerns Assessment Noted Time PHQ-9 Depression Total Score: 3 02/07/20 24 9:33 AM CDT documented as of this encounter Care Teams Senior Business Manager Relationship Specialty Start Date End Date Esha Grimm PAUcheC [address] [place] [phone] PCP - General Family Medicine 05/04/23 Diana Desir, [facility] [address] [place] [address] Pharmacist Pharmacist 04/17/21 Rain Galaviz PA-C [address] [place] [address] [address] [place] [address] Physician Analytical Technician Dermatology 04/28/21 Tavia Wyatt MD [address] [place] [address] [place] [address] Dermatology 07/14/21 Erica Farrell APRN FITNESS AND WELLNESS INSTRUCTOR [address] [place] [address] Nurse Practitioner Cardiovascular Disease 09/09/21 Rich Barrett MD [address] [place] [address] 850715 Physician Ophthalmology 01/21/22 Neil Kent MD 500 [place], [place] 559885 Dermatology 02/24/22 Diana Desir, [facility] 3033 [place] [address] Assigned [facility] Pharmacist 04/07/22 Livan Sharif MD [address] [place] [address] Cardiovascular Disease 05/14/22 Catherine Cm MD [address] [place] [address] Cardiovascular Disease 07/21/22 Valery Veronica PA-C [address] [place] [address] [place] [address] Physician Analytical Technician Dermatology 07/21/22 Brea Quinn APRN FITNESS AND WELLNESS INSTRUCTOR 500 [place] [address] Nurse Practitioner Dermatology 09/21/22 Brea Quinn APRN FITNESS AND WELLNESS INSTRUCTOR 6401 [place] [address] Assigned Surgical Provider 10/09/22 05/01/24 [place] [address] [address] Assigned Musculoskeletal Provider 10/09/22 05/01/24 Alfonso Renteria MD [address] [facility] 200 [place], [place] 7[address] Assigned Neuroscience Provider 04/02/23 Radha Lomeli APRN FITNESS AND WELLNESS INSTRUCTOR 6405 [facility] [address] [place] [address] Assigned Heart and Vascular Provider 05/28/23 Jelena David OD [address] [facility] [place] [address] Ophthalmology 06/15/23 Esha Grimm PA-C [address] [place] [address]83 Assigned PCP 07/16/23 Valery Veronica PA-C 909 [place] [address] Physician Analytical Technician Dermatology 09/19/23 Rey Tay MD 9 [place] [address] MD Gastroenterology 09/20/23 Rocky Zepeda DO [address] [place] [address] Physician Gastroenterology 09/20/23 Philip Dumont MD 6 [place] [address] Physician Ophthalmology 09/22/23 Meredith Carrera PA-C [address] [place] [address] Assigned Gastroenterology Provider 11/01/23 Neil Kent MD [address] 985110 Dermatology 11/02/23 [place] [address] [address] [place], [place] [address] Neurological Surgery 12/26/23 Audrey Waite PA-C 500 [place] [address] Physician Analytical Technician Dermatology 02/28/24 documented as of this encounter
--- OUTSIDE RECORDS SUMMARY | 2024-05-27 08:46 | XMS_ITS | Encounter Summary ---
Author Organization [facility] Address [address] [place] [address] Care Team Providers Care Object Oriented Developer Name Role Phone Diana Desir [facility] Unavailable [phone] Rain Galaviz PA-C Unavailable Tavia Wyatt MD Unavailable Unavailable Erica Farrell JEWELRY JOBBER QUALITY ASSURANCE REPRESENTATIVE Unavailable Rich Barrett MD Unavailable Neil Kent MD Unavailable ThangDiana [facility] Unavailable [phone] Livan Sharif MD Unavailable Catherine Cm MD Unavailable + Valery Veronica PA-C Unavailable [phone] Brea Quinn JEWELRY JOBBER QUALITY ASSURANCE REPRESENTATIVE Unavailable Brea Quinn JEWELRY JOBBER QUALITY ASSURANCE REPRESENTATIVE Unavailable Jose Francisco Johnson MD Unavailable Alfonso Renteria MD Unavailable + [phone] Esha Grimm PA-C Primary Care Provider [phone] Radha Lomeli JEWELRY JOBBER QUALITY ASSURANCE REPRESENTATIVE Unavailable [phone] Jelena David OD Unavailable [phone] Esha Grimm PA-C Unavailable [phone] Valery Veronica PA-C Unavailable Rey Tay MD Unavailable Rocky Zepeda DO Unavailable Philip Dumont MD Unavailable [phone] Meredith Carrera PA-C Unavailable [phone] Neil Kent MD Unavailable Juan Pablo Emmanuel MD Unavailable Audrey Waite PA-C Unavailable [phone] Valery Veronica PA-C Unavailable Encounter Details Date Type Department Care Team (Late st Contact Info) Description 02/28/2024 [facility] Medical Advice [facility] Gastroenterology Clinic [address]th [place] [address] Rain Burnette RN Social History Tobacco Use Types Packs/Day [...] PHQ-2 Score 1 02/07/2024 [facility] Occupat [facility] - [...] exercise at this level? 30 min 03/10/2023 [place] Depression Scale Answer Date Recorded [place] Depression Score 5 01/14/2021 Last EPDS [...] PM CDT Legal Sex Female 4:13 AM FLUID DYNAMICIST Gender Identity Female 03/02/2021 5:45 PM CDT Sexual Orientation Straight 02/28/2020 12 :51 AM CDT documented as of this encounter Plan of Treatment Upcoming Encounters Date Type Department Care Team (Late st Contact Info) Description 05/31/2024 8:40 AM FLUID DYNAMICIST Therapy Visit [facility] Rehabilitation Services [address] [place] [phone] Ingris Thompson, PT [facility] [address] [place] [address] 264325 05/31/2024 3:30 PM FLUID DYNAMICIST Office Visit [facility] Specialty Clinic [address] [phone] Audrey Díaz, Herminia Koo MD [address] [place] [address] [phone] 06/04/2024 3:30 PM FLUID DYNAMICIST Office Visit [address] [place] [phone] Jelena David OD [address] [place] [address] 06/11/2024 10:30 AM FLUID DYNAMICIST Appointment [facility] Respiratory Therapy [address] [place] [address] Spec, Nurse Only Med 06/18/2024 2:50 PM FLUID DYNAMICIST Therapy Visit [facility] Rehabilitation Services [address] [place] [phone] Ingris Thompson, PT [facility] [address] [facility] 106 [place], [place] 538815 06/21/2024 2:00 PM FLUID DYNAMICIST Office Visit [facility] Neurology Clinics - [place] [address] [place] [address], [address] [place] [phone] [place] [address] [place], [place] 0[address] Johnny Penn MD 7799 [place], [place] 892175 06/25/2024 8:30 AM FLUID DYNAMICIST Office Visit [address] [phone] Valery Veronica PA-C [address] [place] [address] 538115 11/28/2024 7:45 AM CDT Virtual Visit [facility] Gastroenterology Clinic [address] 4th [place] [phone] Meredith Carrera PA-C [address] [place] [address] 440575 documented as of this encounter Visit Diagnoses Not on filedocumented in this encounter Additional Health Concerns Infection Onset Date Last Indicated Resolved Time Rule Out COVID-19 04/09/2024 04/09/2024 04/10/2024 6:48 PM CDT Assessment Noted Time PHQ-9 Depression Total Score: 3 02/07/20 24 9:33 AM CDT documented as of this encounter Care Teams Object Oriented Developer Relationship Specialty Start Date End Date Esha Grimm PA-C [address] [place] [address] PCP - General Family Medicine 05/04/23 Diana Desir, [facility] 3033 [place] [address] Pharmacist Pharmacist 04/17/21 Rain Galaviz PA-C [address] [place] [address] [address] [place] [address] Physician Quality Control Projectionist Dermatology 04/28/21 Tavia Wyatt MD [address] [place] [address] [address] [place] [address] Dermatology 07/14/21 Erica Farrell APRN QUALITY ASSURANCE REPRESENTATIVE [address] [facility] [address] [place] [address] Nurse Practitioner Cardiovascular Disease 09/09/21 Rich Barrett MD [address] 642215 Physician Ophthalmology 01/21/22 Neil Kent MD 500 [place], [place] [phone] Dermatology 02/24/22 Diana Desir, [facility] 30[address] [place], [place] [phone] Assigned MTM Pharmacist 04/07/22 Livan Sharif MD [address] [place] 5645400 [place], [place] 358265 Cardiovascular Disease 05/14/22 Catherine Cm MD [address] [phone] [place], [place] 275155 Cardiovascular Disease 07/21/22 Valery Veronica, PA-C [address] [place] [address] 170195 Physician Quality Control Projectionist Dermatology 07/21/22 Brea Quinn APRN QUALITY ASSURANCE REPRESENTATIVE [address] [place] [address] [phone] Nurse Practitioner Dermatology 09/21/22 Brea Quinn APRN QUALITY ASSURANCE REPRESENTATIVE [address] [place] [address] 996782 Assigned Surgical Provider 10/09/22 05/01/24 [place] [address] 796247 Assigned Musculoskeletal Provider 10/09/22 05/01/24 Alfonso Renteria MD [address] [id number] Assigned Neuroscience Provider 04/02/23 Armani Radha ARLENE Stovall QUALITY ASSURANCE REPRESENTATIVE 6[address] [facility] [address] [place] [address] Assigned Heart and Vascular Provider 05/28/23 Jelena David OD [address] [facility] [address] [place] [phone] MD Ophthalmology 06/15/23 Esha Grimm PA-C [address] [place] [phone] Assigned PCP 07/16/23 Valery Veronica PA-C [address] [place] [address] 425285 Physician Quality Control Projectionist Dermatology 09/19/23 Rey Tay MD [address] [place] [address] 195615 Gastroenterology 09/20/23 Rocky Zepeda DO [address] [place] [address] 540115 Physician Gastroenterology 09/20/23 Philip Dumont MD [address] [place] [address] 058665 Physician Ophthalmology 09/22/23 Meredith Carrera PA-C [address] [place] [address] Assigned Gastroenterology Provider 11/01/23 Neil Kent MD [address] [address] Dermatology 11/02/23 [place] [address] [facility] [address] Neurological Surgery 12/26/23 Audrey Waite PA-C 500 [place] [address] Physician Quality Control Projectionist Dermatology 02/28/24 Valery Veronica PA-C [address] [place] [address] Physician Quality Control Projectionist Dermatology 04/10/24 documented as of this encounter
--- OUTSIDE RECORDS SUMMARY | 2024-05-27 08:46 | XMS_ITS | Encounter Summary ---
Author Organization [facility] Address [address] [place] [address] Care Team Providers Care Commercial Specialist Name Role Phone Diana Desir [facility] Unavailable [phone] Rain Galaviz PA-C Unavailable Tavia Wyatt MD Unavailable Unavailable Erica Farrell MARGIN ANALYST SCANNING COORDINATOR Unavailable Rich Barrett MD Unavailable Neil Kent MD Unavailable ThangDiana [facility] Unavailable [phone] Livan Sharif MD Unavailable Catherine Cm MD Unavailable + Valery Veronica PA-C Unavailable [phone] Brea Quinn MARGIN ANALYST SCANNING COORDINATOR Unavailable Brea Quinn MARGIN ANALYST SCANNING COORDINATOR Unavailable Jose Francisco Johnson MD Unavailable Alfonso Renteria MD Unavailable + [phone] Esha Grimm PA-C Primary Care Provider [phone] Radha Lomeli MARGIN ANALYST SCANNING COORDINATOR Unavailable [phone] Jelena David OD Unavailable Esha Grimm PA-C Unavailable [phone] Valery Veronica PA-C Unavailable [phone] Rey Tay MD Unavailable Rocky Zepeda DO Unavailable Philip Dumont MD Unavailable [phone] Meredith Carrera PA-C Unavailable [phone] Neil Kent MD Unavailable Juan Pablo Emmanuel MD Unavailable [phone] Audrey Waite PA-C Unavailable [phone] Encounter Details Date Type Department Care Team [...] you attend [facility] or [facility]ae[facility] services? 1 to 4 [...] Date Recorded PHQ-2 Score 1 02/07/2024 [facility] Stress Questionnaire [...] exercise at this level? 30 min 03/10/2023 [place] Depression Scale Answer Date Recorded [place] Depression Score 5 01/14/2021 Last EPDS Self [...] PM CDT Legal Sex Female 4:13 AM REGIONAL SALES MANAGER Gender Identity Female 03/02/2021 5:45 PM CDT Sexual Orientation Straight 02/28/2020 12 :51 AM CDT documented as of this encounter Plan of Treatment Upcoming Encounters Date Type Department Care Team (Late st Contact Info) Description 05/31/2024 8:40 AM REGIONAL SALES MANAGER Therapy Visit [facility] Rehabilitation Services [address] [place] [phone] Ingris Thompson, PT [facility] [address] [place] [address] 930875 05/31/2024 3:30 PM REGIONAL SALES MANAGER Office Visit [facility] Specialty Clinic [address] [phone] Audrey Díaz, Herminia Koo MD [address] [place] [address] 06/04/2024 3:30 PM REGIONAL SALES MANAGER Office Visit [address] [place] [phone] Jelena David, SONJA [address] [place] [address] [place] [address] 06/11/2024 10:30 AM REGIONAL SALES MANAGER Appointment [facility] Respiratory Therapy [address] [place] [address] Spec, Nurse Only Med 06/18/2024 2:50 PM REGIONAL SALES MANAGER Therapy Visit [facility] Rehabilitation Services [place] [address] [place] [address] [address] [place] [phone] Ingris Thompson, PT [facility] 516 [facility] 106 [place], [place] 937345 06/21/2024 2:00 PM REGIONAL SALES MANAGER Office Visit [facility] Neurology Clinics - [place] [address] [facility], [address] [place] [phone] [place] [address] [place], [place] 506[address] Johnny Penn MD 65[address] [facility] [place], [place] 616585 06/25/2024 8:30 AM REGIONAL SALES MANAGER Office Visit [address] [phone] Valery Veroniac PA-C [address] [place] [address] 542495 11/28/2024 7:45 AM CDT Virtual Visit [facility] Gastroenterology Clinic [address] 4th [place] [address] Meredith Carrera PA-C [address] [place] [address] 502025 documented as of this encounter Visit Diagnoses Not on filedocumented in this encounter Additional Health Concerns Assessment Noted Time PHQ-9 Depression Total Score: 3 02/07/20 24 9:33 AM CDT documented as of this encounter Care Teams Commercial Specialist Relationship Specialty Start Date End Date Esha Grimm PA-C [address] [place] [address] PCP - General Family Medicine 05/04/23 Diana Desir, [facility] [address] [place] [address] Pharmacist Pharmacist 04/17/21 Rain Galaviz PA-C [address] [place] [address] [address] [place] [address] Physician Otr Van Cdl Truck Driver Dermatology 04/28/21 Tavia Wyatt MD [address] [place] [address] DR ARRI[address] [facility] [place] [address] Dermatology 07/14/21 Erica Farrell, ARLENE SCANNING COORDINATOR [address] [place], [place] 521655 Nurse Practitioner Cardiovascular Disease 09/09/21 Rich Barrett MD 516 [facility] 9A [place], [place] 562465 Physician Ophthalmology 01/21/22 Neil Kent MD 500 [place], [place] 722845 Dermatology 02/24/22 Diana Desir, [facility] [address] [place] [address] Assigned MTM Pharmacist 04/07/22 Livan Sharif MD [address] [place] [address] Cardiovascular Disease 05/14/22 Catherine Cm MD 6405 [facility] [address] [place] [address] Cardiovascular Disease 07/21/22 Valery Veronica, PAUcheC [address] [place] [address] Physician Otr Van Cdl Truck Driver Dermatology 07/21/22 Brea Quinn APRN SCANNING COORDINATOR [address] [place] [address] Nurse Practitioner Dermatology 09/21/22 Brea Quinn APRN SCANNING COORDINATOR 6401 [place] [address] Assigned Surgical Provider 10/09/22 05/01/24 [place] [address] [facility] 300 [place] [address] Assigned Musculoskeletal Provider 10/09/22 05/01/24 Alfonso Renteria MD [address] [facility] 200 [place], [place] 391906 Assigned Neuroscience Provider 04/02/23 Radha Lomeli APRN SCANNING COORDINATOR [address] [facility] [address] [place] [address] Assigned Heart and Vascular Provider 05/28/23 Jelena David OD [address] [place] [address] MD Ophthalmology 06/15/23 Esha Grimm PA-C [address] [place] [address]-202883 Assigned PCP 07/16/23 Valery Veronica PA-C [address] [place] [address] Physician Otr Van Cdl Truck Driver Dermatology 09/19/23 Rey Tay MD [address] [place] [address] Gastroenterology 09/20/23 Rocky Zepeda DO [address] [place] [address] Physician Gastroenterology 09/20/23 Philip Dumont MD [address] [place] [address] Physician Ophthalmology 09/22/23 Meredith Carrera PA-C [address] [place] [address] Assigned Gastroenterology Provider 11/01/23 Neil Kent MD [address] 075610 Dermatology 11/02/23 [place] [address] [place] [address] Neurological Surgery 12/26/23 Audrey Waite PA-C 500 [place] [address] Physician Otr Van Cdl Truck Driver Dermatology 02/28/24 documented as of this encounter
--- OUTSIDE RECORDS SUMMARY | 2024-05-27 08:46 | XMS_ITS | Encounter Summary ---
Author Organization [facility] Address [address] [place] [address] Care Team Providers Care Extender Name Role Phone Diana Desir [facility] Unavailable Rain Galaviz PA-C Unavailable Tavia Wyatt MD Unavailable Unavailable Erica Farrell LOG CUT OFF SAWYER POWER SUPPLY ENGINEER Unavailable Rich Barrett MD Unavailable Neil Kent MD Unavailable ThangDiana [facility] Unavailable [phone] Livan Sharif MD Unavailable Catherine Cm MD Unavailable + Valery Veronica PA-C Unavailable [phone] Brea Quinn LOG CUT OFF SAWYER POWER SUPPLY ENGINEER Unavailable Brea Quinn LOG CUT OFF SAWYER POWER SUPPLY ENGINEER Unavailable [phone] Jose Francisco Johnson MD Unavailable Alfonso Renteria MD Unavailable + [phone] Esha Grimm PA-C Primary Care Provider Radha Lomeli LOG CUT OFF SAWYER POWER SUPPLY ENGINEER Unavailable [phone] Jelena David Radha OD Unavailable Wicho Grimmlincoln Medina PA-C Unavailable [phone] Valery Veronica PA-C Unavailable Rey Tay MD Unavailable ZepedaRocky Unavailable Philip Dumont MD Unavailable [phone] Meredith Carrera PA-C Unavailable [phone] Neil Kent MD Unavailable Juan Pablo Emmanuel MD Unavailable [phone] Audrey Waite PA-C Unavailable Valery Veronica PA-C Unavailable Reason for Referral * CV Testing (Routine) - Closed Specialty Diagnoses / Procedures Referred By Qian mayers Referred To Contact Cardiology Diagnoses SVT (supraventricular tachycardia) (H) Procedures Cardiac Event Monitor Adult Pediatric Radha Lomeli APRN POWER SUPPLY ENGINEER [address] [place] [address] Phone: tel: fax: [facility] [address] [facility] [address] [place] [address] Phone: tel: fax: Referral ID Status Reason Start Date Expiration Date Visits Re quested Visits Authorized [id number] Closed 03/07/2024 03/07/2025 1 1 Encounter Details Date Type Department Care Team (Late st Contact Info) Description 03/07/2024 Telephone [facility] Heart [facility] [address] [facility] [address] [place] [address] Carley Myles RN Social History Tobacco Use Types Packs/Day [...] 1 02/07/2024 [facility] of Occupat ional [facility] - Occupational Stress Questionnaire Answer [...] exercise at this level? 30 min 03/10/2023 [place] Depression Scale Answer Date Recorded [place] Depression Score 5 01/14/2021 Last EPDS Self [...] PM CDT Legal Sex Female 4:13 AM COMMUNITY HEALTH WORKER Gender Identity Female 03/02/2021 5:45 PM CDT Sexual Orientation Straight 02/28/2020 12 :51 AM CDT documented as of this encounter Miscellaneous Notes * Telephone Encounter - Carley Myles RN - 03/07/2024 1:21 PM CDT Called patient to discuss. Pt states she will mail back the Zio patch and get event monitor placed. Pt requested a surgery scheduler to call her instead of her reaching out. Will route to scheduling team. Orders in EPIC. Carley ZABALA [facility] * Telephone Encounter - Radha Lomeli APRN [...] Radha Lomeli CNP for review. Carley ZABALA [facility] documented in this encounter Plan of Treatment Upcoming Encounters Date Type Department Care Team (Late st Contact Info) Description 05/31/2024 8:40 AM COMMUNITY HEALTH WORKER Therapy Visit [facility] Rehabilitation Services [address] [place] [phone] Ingris Thompson, PT [facility] [address] [place] [address] 106 [place] [address] 05/31/2024 3:30 PM COMMUNITY HEALTH WORKER Office Visit [facility] Specialty Clinic [address] [phone] Audrey Díaz, Herminia Koo MD [address] [place] [address] 06/04/2024 3:30 PM COMMUNITY HEALTH WORKER Office Visit [facility] [address] [facility] [address] [place] [address] Jelena David, OD [address] [facility] [address] 06/11/2024 10:30 AM COMMUNITY HEALTH WORKER Appointment [facility] Respiratory Therapy [address] [place] [address] Spec, Nurse Only Med 06/18/2024 2:50 PM COMMUNITY HEALTH WORKER Therapy Visit [facility] Rehabilitation Services [address] [place] [phone] Ingris Thompson, PT [facility] 6 [facility] 106 [place] [address] 06/21/2024 2:00 PM COMMUNITY HEALTH WORKER Office Visit [facility] Neurology [facility] [address] [place] [address], [address] [place] [address] [place] [address] [place] [address] Johnny Penn MD 1754 [place], [place] 443145 06/25/2024 8:30 AM COMMUNITY HEALTH WORKER Office Visit [address] [address] Valery Veronica, PA-C [address] [place] [address] 614335 11/28/2024 7:45 AM CDT Virtual Visit [facility] Gastroenterology [place] [address] [facility] 4th [place] [phone] Meredith Carrera PA-C 909 [place] [address] documented as of this encounter Results * CARDIAC EVENT MONITOR APPLICATION AND PROVIDER INTERPRETATION (03/08/2024 11:18 AM CDT) Anatomical Region Laterality Modality Other Radha Lomeli APRN POWER SUPPLY ENGINEER CV CARDIAC SERVICES ORDERA BLES Final Result documented in this encounter Visit Diagnoses Diagnosis SVT (supraventricular tachycardia) (H)- Primary Other specified cardiac dysrhythmias Palpitations Dizziness Dizziness and giddiness Paroxysmal supraventricular tachycardia (H) Paroxysmal supraventricular tachycardia Atypical chest pain Other chest pain documented in this encounter Additional Health Concerns Infection Onset Date Last Indicated Resolved Time Rule Out COVID-19 04/09/2024 04/09/2024 04/10/2024 6:48 PM CDT Assessment Noted Time PHQ-9 Depression Total Score: 3 02/07/20 24 9:33 AM CDT documented as of this encounter Care Teams Extender Relationship Specialty Start Date End Date Esha Grimm PA-C [address] [place] [address] PCP - General Family Medicine 05/04/23 Diana Desir, [facility] [address] [place] [address] Pharmacist Pharmacist 04/17/21 Rain Galaviz PA-C [address] [place] [address] [address] [place] [address] Physician Hoe Worker Dermatology 04/28/21 Tavia Wyatt MD [address] [place] [address] [address] [place] [address] Dermatology 07/14/21 Erica Farrell APRN POWER SUPPLY ENGINEER [address] [place], [place] 601[address] Nurse Practitioner Cardiovascular Disease 09/09/21 Rich Barrett MD 516 [facility] 9A [place] [address] Physician Ophthalmology 01/21/22 Neil Kent MD 500 [place], [place] 573985 Dermatology 02/24/22 Diana Desir, [facility] 3033 [place], [place] 472106 Assigned [place] Pharmacist 04/07/22 Livan Sharif MD [address] [place], [place] 0[address] Cardiovascular Disease 05/14/22 Catherine Cm MD [address] [place], [place] 017[address] Cardiovascular Disease 07/21/22 Valery Veronica, PA-C 909 [place], [place] 211135 Physician Hoe Worker Dermatology 07/21/22 Brea Quinn APRN POWER SUPPLY ENGINEER 500 [place], [place] 887685 Nurse Practitioner Dermatology 09/21/22 Brea Quinn APRN POWER SUPPLY ENGINEER 6401 [facility] [place] [address] Assigned Surgical Provider 10/09/22 05/01/24 [place] [address] [place] [address] Assigned Musculoskeletal Provider 10/09/22 05/01/24 Alfonso Renteria MD [address] [facility] 200 [place], [place] 322856 Assigned Neuroscience Provider 04/02/23 Radha Lomeli APRN POWER SUPPLY ENGINEER 6405 [facility] [address] [place] [address] Assigned Heart and Vascular Provider 05/28/23 Jelena David OD [address] [place] [address] Ophthalmology 06/15/23 Esha Grimm PA-C [address] [place] [phone] Assigned PCP 07/16/23 Valery Veronica PA-C [address] [place] [address] 649625 Physician Hoe Worker Dermatology 09/19/23 Rey Tay MD [address] [place] [address] 682945 Gastroenterology 09/20/23 Rocky Zepeda DO [address] [place] [address] Physician Gastroenterology 09/20/23 Philip Dumont MD 6 [place] [address] Physician Ophthalmology 09/22/23 Meredith Carrera PA-C [address] [place] [address] Assigned Gastroenterology Provider 11/01/23 Neil Kent MD [address] [place] [address] 997800 MD Dermatology 11/02/23 [place] [address] 132687 Neurological Surgery 12/26/23 Audrey Waite PA-C [address] [place] [address] 597395 Physician Hoe Worker Dermatology 02/28/24 Valery Veronica PA-C 776675 [address] [address] Physician Hoe Worker Dermatology 04/10/24 documented as of this encounter
--- OUTSIDE RECORDS SUMMARY | 2024-05-27 08:46 | XMS_ITS | Encounter Summary ---
Author Organization [place] Address [address] [place] [address] Care Team Providers Care Etched Circuit Processor Name Role Phone [facility] Unavailable Rain Galaviz PA-C Unavailable Tavia Wyatt MD Unavailable Unavailable Erica Farrell FISHERY BIOLOGIST BROADCAST METEOROLOGIST Unavailable Rich Barrett MD Unavailable Neil Kent MD Unavailable [facility] Unavailable [phone] Livan Sharif MD Unavailable Catherine Cm MD Unavailable + Valery Veronica PA-C Unavailable [phone] Brea Quinn FISHERY BIOLOGIST BROADCAST METEOROLOGIST Unavailable Brea Quinn FISHERY BIOLOGIST BROADCAST METEOROLOGIST Unavailable Jose Francisco Johnson MD Unavailable Alfonso Renteria MD Unavailable + [phone] Esha Grimm PA-C Primary Care Provider Radha Lomeli FISHERY BIOLOGIST BROADCAST METEOROLOGIST Unavailable Jelena David OD Unavailable [phone] [place] Esha M PA-C Unavailable [phone] Valery Veronica PA-C Unavailable Rey Tay MD Unavailable Rocky Zepeda Unavailable Philip Dumont MD Unavailable [phone] Meredith Carrera PA-C Unavailable Neil Kent MD Unavailable Juan Pablo Emmanuel MD Unavailable Audrey Waite PA-C Unavailable [phone] Valery Veronica PA-C Unavailable [phone] Reason for Referral * CV Testing (Routine) - Pending Review Specialty Diagnoses / Procedures Referred By Qian mayers Referred To Contact Diagnoses Palpitations Procedures ZIO PATCH 48 HOURS INTERPRETATION ZIO PATCH 8-14 DAYS (additional cost to patient) Radha Lomeli APRN BROADCAST METEOROLOGIST [address] [place] [address] Phone: tel: fax: Referral ID Status Reason Start Date Expiration Date V isits Requested Visits Authorized [id number] Pending Review 03/06/2024 03/06/2025 1 1 Reason for Visit * Reason Comments Tachycardia SVT Encounter Details Date Type Department Care Team (Late st Contact Info) Description 03/06/2024 3:00 PM CDT Office Visit [facility] [id number] [place] [address] [address] [place] [address] Radha Lomeli APRN BROADCAST METEOROLOGIST [address] [place] [id number] SVT (supraventricular tachycardia) (H) (Primary Dx); Palpitations Social History Tobacco Use [...] exercise at this level? 30 min 03/28/2024 [place] Depression Scale Answer Date Recorded [...] PM CDT Legal Sex Female 4:13 AM CAP SIZER Gender Identity Female 03/02/2021 5:45 PM CDT [...] in this encounter Progress Notes * Radha Lomeli E, FISHERY BIOLOGIST BROADCAST METEOROLOGIST - 03/06/2024 3:00 PM CDT HISTORY OF PRESENT ILLNESS: This is a 23 year old female who follows with Dr Sharif/Toi at [facility] Her past medical history includes: SVT, seizure disorder, anxiety/depression, remote smoker, eosinophilic esophagitis, hiatal hernia Ms Johnson developed heart racing and was seen in [...] Ablation SVT; Surgeon: Galo Burrell MD; Location: [facility] CARDIAC CREW CLERK ESOPHAGOSCOPY, GASTROSCOPY, DUODENOSCOPY (EGD), COMBINED N/A 06/26/2021 [...] 30 min Stress: Stress Concern Present (03/10/2023) [place] Island[place] [facility] [employer] - Occupational Stress Questionnaire Feeling of Stress : To some extent Social Connections: Moderately Isolated (03/10/2023) Social Connection and Isolation Panel [NHANES] Frequency of Communication with Friends and Family: Three times a week Frequency of Social Gatherings with Friends and Family: Twice a week Attends Latter-Day Services: 1 to 4 times per year [...] defined for this encounter. * Mick David 03/06/2024 3:00 PM CDT Kim Johnson arrived [...] st Contact Info) Description 05/31/2024 8:40 AM CAP SIZER Therapy Visit [address] [place] [address] Ingris Thompson, PT [facility] [address] [place] [address] 106 [place], [place] [phone] 05/31/2024 3:30 PM CAP SIZER Office Visit [facility] Specialty [address] [phone] Audrey Díaz, Herminia Koo MD [address] [place] [address] 06/04/2024 3:30 PM CAP SIZER Office Visit [address] [place] [phone] Jelena David, SONJA [address] [place] [address] [place] [address] 06/11/2024 10:30 AM CAP SIZER Appointment [facility] Respiratory Therapy [address] [place] [address] Spec, Nurse Only Med 06/18/2024 2:50 PM CAP SIZER Therapy Visit [facility] [address] [place] [address] [address] [place] [phone] Ingris Thompson, PT [facility] [address] [facility] [address] [place], [place] [address] 06/21/2024 2:00 PM CAP SIZER Office Visit [facility] [place] [address] [facility], [address] [place] [phone] [place] [address] [place] [address] 884087 Johnny Penn MD [address] [place], [place] 12[address] 06/25/2024 8:30 AM CAP SIZER Office Visit [address] [phone] Valery Veronica PA-C [address] [place] [address]55105 11/28/2024 7:45 AM CDT Virtual Visit [facility] [address] 4th [place] [phone] Meredith Carrera PA-C [address] [place] [address] [phone] Pending Results Name Type Priority Associated Diagnoses Date /Time ZIO PATCH 8-14 DAYS APPLICATION Procedures Routine Palpitations 03/08/2024 documented as of this encounter Procedures Procedure Name Priority Date/Time Associated Diagnosis Comments ZIO PATCH 48 HOURS INTERPRETATION Routine 04/28/2024 1:43 PM CDT Palpitations ZIO PATCH 8-14 DAYS APPLICATION Routine 03/08/2024 Palpitations documented in this encounter Results * ZIO PATCH 48 HOURS INTERPRETATION (04/28/2024 1:43 PM CDT) Anatomical Region Laterality Modality Other Narrative 04/28/2024 1:45 PM CDT Agree with findings Symptoms reported (9 episodes) were mostly related to sinus rhythm One episode of AV Wenkebach at 6:17 AM - commonly noted in young patients in early AM. Radha Lomeli APRN BROADCAST METEOROLOGIST [facility] BLES Final Result documented in this encounter Visit Diagnoses Diagnosis SVT (supraventricular tachycardia) (H)- Primary Other specified cardiac dysrhythmias Palpitations documented in this encounter Additional Health Concerns Infection Onset Date Last Indicated Resolved Time Rule Out COVID-04/09/2024 04/09/2024 04/10/2024 6:48 PM CDT Assessment Noted Time PHQ-9 Depression Total Score: 3 02/07/20 24 9:33 AM CDT documented as of this encounter Care Teams Etched Circuit Processor Relationship Specialty Start Date End Date Esha Grimm PA-C [address] [place] [address] PCP - General Family Medicine 05/04/23 [facility] [address] [place], [place] 494116 Pharmacist Pharmacist 04/17/21 Rain Galaviz PA-C [address] [place] [address] [place] [address] Physician Mobile Plant Operators Dermatology 04/28/21 Tavia Wyatt MD [address] [place] [address] [address] [facility] [address] Dermatology 07/14/21 Erica Farrell APRN BROADCAST METEOROLOGIST [address] [facility] [address] [place] [address] Nurse Practitioner Cardiovascular Disease 09/09/21 Rich Barrett MD 516 [facility] [address] [place], [place] 875985 Physician Ophthalmology 01/21/22 Neil Kent MD 500 [place], [place] 948185 Dermatology 02/24/22 Diana Desir, [facility] [address] [place], [place] 853016 Assigned MTM Pharmacist 04/07/22 Livan Sharif MD [address] [facility] [address] [place], [place] 7557[address] Cardiovascular Disease 05/14/22 Catherine Cm MD 6405 [facility] Sylvia [address] 252355 Cardiovascular Disease 07/21/22 Valery Veronica, PA-C 909 [place], [place] 995855 Physician Mobile Plant Operators Dermatology 07/21/22 Brea Quinn APRN BROADCAST METEOROLOGIST 500 [place], [place] 898935 Nurse Practitioner Dermatology 09/21/22 Brea Quinn APRN BROADCAST METEOROLOGIST 64[address] [facility] [place] 033352 Assigned Surgical Provider 10/09/22 05/01/24 [place] [address] [address] [place] [address] Assigned Musculoskeletal Provider 10/09/22 05/01/24 Alfonso Renteria MD [address] [facility] 200 [place], [place] 415476 Assigned Neuroscience Provider 04/02/23 Radha Lomeli APRN BROADCAST METEOROLOGIST [address] [place] [phone] [place] 149475 Assigned Heart and Vascular Provider 05/28/23 Jelena David OD [address] [facility] [place] [address] Ophthalmology 06/15/23 Esha Grimm PA-C [address] [place] [phone] Assigned PCP 07/16/23 Valery Veronica PA-C [address] [place] [address] 120675 Physician Mobile Plant Operators Dermatology 09/19/23 Rey Tay MD [address] [place] [address] 220815 Gastroenterology 09/20/23 Rocky Zepeda DO [address] [place] [address] 694415 Physician Gastroenterology 09/20/23 Philip Dumont MD 516 [place] [address] Physician Ophthalmology 09/22/23 Meredith Carrera PA-C 909 [place] [address] Assigned Gastroenterology Provider 11/01/23 Neil Kent MD [address] [address] Dermatology 11/02/23 [place] [address] [place] [address] Neurological Surgery 12/26/23 Audrey Waite PA-C 500 [place] [address] Physician Mobile Plant Operators Dermatology 02/28/24 Valery Veronica PA-C [address] [address] Physician Mobile Plant Operators Dermatology 04/10/24 documented as of this encounter
--- OUTSIDE RECORDS SUMMARY | 2024-05-27 08:46 | XMS_ITS | Encounter Summary ---
Author Organization [place] Address [address] [place] [address] Care Team Providers Care Ethical Hacker Name Role Phone Diana Desir [facility] Unavailable Rain Galaviz PA-C Unavailable Tavia Wyatt MD Unavailable Unavailable Erica Farrell LEGAL SECRETARY RECEPTIONIST RUFFLER Unavailable Rich Barrett MD Unavailable Neil Kent MD Unavailable ThangDiana [facility] Unavailable [phone] Livan Sharif MD Unavailable Catherine Cm MD Unavailable + Valery Veronica PA-C Unavailable [phone] Brea Quinn LEGAL SECRETARY RECEPTIONIST RUFFLER Unavailable Brea Quinn LEGAL SECRETARY RECEPTIONIST RUFFLER Unavailable Jose Francisco Johnson MD Unavailable Alfonso Renteria MD Unavailable + [phone] Esha Grimm PA-C Primary Care Provider [phone] Radha Lomeli LEGAL SECRETARY RECEPTIONIST RUFFLER Unavailable Jelena David OD Unavailable [phone] [place] Esha M PA-C Unavailable [phone] Valery Veronica PA-C Unavailable Rey Tay [...] (Late st Contact Info) Description 03/05/2024 Telephone [facility] [address] [facility] [address] [place] [address] Radha Lomeli APRN [facility] [address] [facility] [address] [place], [place] [address] Call Back (Heart monitor for 14 or [...] attend [facility] or taoism services? 1 to 4 times [...] exercise at this level? 30 min 03/10/2023 [place] Depression Scale Answer Date Recorded [place] Depression Score 5 01/14/2021 Last EPDS [...] PM CDT Legal Sex Female 4:13 AM GLASS BEVELLER Gender Identity Female 03/02/2021 5:45 PM CDT Sexual Orientation Straight 02/28/2020 12 :51 AM CDT documented as of this encounter Miscellaneous Notes * Telephone Encounter - Kaila Green, RN - 03/05/2024 2:02 PM CDT Spoke with patient and let her know that we do need to see her in office before we can place ordersfor a heart monitor. Patient verbalized understanding. Kaila Green RN on 03/05/2024 at 2:02 PM * Telephone Encounter - Amalia Cortez - 03/05/2024 12:54 PM CDT [facility] [...] st Contact Info) Description 05/31/2024 8:40 AM GLASS BEVELLER Therapy Visit [address] [place] [phone] [facility]gris Thompson[facility] [address] [place] [address] 05/31/2024 3:30 PM GLASS BEVELLER Office Visit [address] [address] Audrey Díaz, Herminia Koo MD [address] [place] [address] 06/04/2024 3:30 PM GLASS BEVELLER Office Visit [address] [place] [phone] Jelena David, [address] [place] [address] 06/11/2024 10:30 AM GLASS BEVELLER Appointment [facility] Respiratory Therapy [address] [place] [phone] Spec, Nurse Only Med 06/18/2024 2:50 PM GLASS BEVELLER Therapy Visit [address] [place] [phone] Ingris Thompson, PT [address] [place] [address] 06/21/2024 2:00 PM GLASS BEVELLER Office Visit [facility] [place] [address] [facility], [address] [place] [phone] [place] [address] [place], [place] 3840[address] Johnny Penn MD 6545 [place], [place] 4727[address] 06/25/2024 8:30 AM GLASS BEVELLER Office Visit [address] [phone] Valery Veronica PAUcheC [address] [place] [address] 11/28/2024 7:45 AM CDT Virtual Visit [facility] [address] [phone] Meredith Carrera PA-C [address] [place] [address] documented as of this encounter Visit Diagnoses Not on filedocumented in this encounter Additional Health Concerns Assessment Noted Time PHQ-9 Depression Total Score: 3 02/07/20 24 9:33 AM CDT documented as of this encounter Care Teams Ethical Hacker Relationship Specialty Start Date End Date Esha Grimm PA-C [address] [place] [address] PCP - General Family Medicine 05/04/23 Diana Desir, [facility] 3033 [place] [address] Pharmacist Pharmacist 04/17/21 Rain Galaviz PA-C [address] [place] [address] DR [address] [place] [address] Physician Repairer Art Objects Dermatology 04/28/21 Tavia Wyatt MD [address] [place] [address] [facility] [address] Dermatology 07/14/21 Erica Farrell APRN RUFFLER [address] [place] [address] Nurse Practitioner Cardiovascular Disease 09/09/21 Rich Barrett MD [address] [place] [address] 133255 Physician Ophthalmology 01/21/22 Neil Kent MD [address] [place] [address] 922575 Dermatology 02/24/22 Diana Desir, [facility] [address] [place] [address] Assigned MTM Pharmacist 04/07/22 Livan Sharif MD [address] [place] [phone] Cardiovascular Disease 05/14/22 Catherine Cm MD [address] [place] 828895 Cardiovascular Disease 07/21/22 Valery Veronica PA-C 909 [place], [place] 154805 Physician Repairer Art Objects Dermatology 07/21/22 Bera Quinn APRN RUFFLER 500 [place], [place] 754935 Nurse Practitioner Dermatology 09/21/22 Brea Quinn APRN RUFFLER 6401 [facility] [place] [address] Assigned Surgical Provider 10/09/22 05/01/24 [place] [address] [facility] 300 [place] [address] Assigned Musculoskeletal Provider 10/09/22 05/01/24 Alfonso Renteria MD [address] [facility] 200 [place], [place] 609016 Assigned Neuroscience Provider 04/02/23 Radha Lomeli APRN RUFFLER 6[address] [facility] [address] [place] [address] Assigned Heart and Vascular Provider 05/28/23 Jelena David OD [address] [facility] [place] [phone] Ophthalmology 06/15/23 Esha Grimm PA-C [address] [place] [phone] Assigned PCP 07/16/23 Valery Veronica PA-C 9 [place], [place] 229145 Physician Repairer Art Objects Dermatology 09/19/23 Rey Tay MD 9 [place] [address] MD Gastroenterology 09/20/23 Rocky Zepeda DO 500 [place], [place] 0076[address] Physician Gastroenterology 09/20/23 Philip Dumont MD [address] [place] [address] 859445 Physician Ophthalmology 09/22/23 Meredith Carrera PA-C 9 [place], [place] 227805 Assigned Gastroenterology Provider 11/01/23 Neil Kent MD [address] [address] Dermatology 11/02/23 [place] [address] [place] [address] Neurological Surgery 12/26/23 Audrey Waite PA-C 500 [place] [address] Physician Repairer Art Objects Dermatology 02/28/24 documented as of this encounter
--- OUTSIDE RECORDS SUMMARY | 2024-05-27 08:47 | XMS_ITS | Encounter Summary ---
Author Organization [place] Address [address] [place] [address] Care Team Providers Care Reconciliation Accountant Name Role Phone Diana Desir [facility] Unavailable Rain Galaviz PA-C Unavailable Tavia Wyatt MD Unavailable Unavailable Erica Farrell FIXTURE RELAMPER BASKETBALL REFEREE Unavailable Rich Barrett MD Unavailable Neil Kent MD Unavailable ThangDiana [facility] Unavailable [phone] Livan Sharif MD Unavailable Catherine Cm MD Unavailable + Valery Veronica PA-C Unavailable [phone] Brea Quinn FIXTURE RELAMPER BASKETBALL REFEREE Unavailable [phone] Brea Quinn FIXTURE RELAMPER BASKETBALL REFEREE Unavailable Jose Francisco Johnson MD Unavailable Alfonso Renteria MD Unavailable + [phone] Esha Grimm PA-C Primary Care Provider [phone] Radha Lomeli FIXTURE RELAMPER BASKETBALL REFEREE Unavailable [phone] Jelena David OD Unavailable Esha GrimmC Unavailable [phone] Valery VeronicaC Unavailable Rey Tay MD Unavailable Rocky Zepeda Unavailable Philip Dumont MD Unavailable [phone] Meredith CarreraC Unavailable Neil Kent MD [...] Description 02/27/2024 10:35 AM CDT Office Visit [facility] [address] [place] [address] Nicole Garcia PA-C [facility] [address] [place] [address] Vagina, candidiasis (Primary Dx); Bacterial vaginosis; [...] Recorded PHQ-2 Score 1 02/07/2024 [facility] [...] exercise at this level? 30 min 03/10/2023 [place] Depression Scale Answer Date Recorded [place] Depression Score 5 01/14/2021 Last EPDS Self [...] PM CDT Legal Sex Female 4:13 AM MICROBIOLOGY TECHNOLOGIST Gender Identity Female 03/02/2021 5:45 PM CDT [...] Negative Ketones Urine Negative Negative mg/dL Specific [place] Urine 1.020 1.003 - 1.035 Blood Urine [...] st Contact Info) Description 05/31/2024 8:40 AM MICROBIOLOGY TECHNOLOGIST Therapy Visit [facility] [address] [place] [address] Ingris Thompson, PT [facility] [address] [place] [address] 05/31/2024 3:30 PM MICROBIOLOGY TECHNOLOGIST Office Visit [facility] Specialty [address] [address] Audrey Díaz PA-C Khan, Waseem, MD 1876 [place], [place] [phone] 06/04/2024 3:30 PM MICROBIOLOGY TECHNOLOGIST Office Visit [facility] [place] [address] [facility] [address] [place] [phone] Jelena David, [address] [facility] [place] [address] 06/11/2024 10:30 AM MICROBIOLOGY TECHNOLOGIST Appointment [facility] Respiratory Therapy [address] [place] [phone] Spec, Nurse Only Med 06/18/2024 2:50 PM MICROBIOLOGY TECHNOLOGIST Therapy Visit [facility] [address] [place] [phone] Ingris Thompson, PT [facility] 6 [facility] 106 [place], [place] 6[address]405 06/21/2024 2:00 PM MICROBIOLOGY TECHNOLOGIST Office Visit [facility] [place] [address] [place] [address], [address] [place] [phone] [place] [address] [place], [place] 259187 Johnny Penn MD 6581 [place], [place] 220255 06/25/2024 8:30 AM MICROBIOLOGY TECHNOLOGIST Office Visit [address] [phone] Valery Veronica, PAUcheC [address] [place] [address] 11/28/2024 7:45 AM CDT Virtual Visit [facility] [address] 4th [place] [phone] Meredith Carrera PA-C [address] [place] [address] documented as of this encounter Procedures Procedure [...] CDT Urine Culture not indicated us Nicole Garcia PA-C LAB - URINE ORDERABLES Final R esult LV LABORATORY [facility] [id number] [place] [address] Lab (no room number, 1st floor of clinic) [address] * (ABNORMAL) Wet prep - lab [...] Garcia PA-C LAB - MICRO GENERAL ORDERABLES Final Result LABORATORY [facility] Lab [address] [facility] Lab (no room number, 1st floor of clinic) [address] * (ABNORMAL) UA Macroscopic with reflex to [...] mg/dL 02/27/2024 10:50 AM CDT LABORATORY Specific [place] Urine 1.020 1.003 - 1.035 02/27/2024 10:50 [...] 10:34 AM CDT 02/27/2024 10:41 AM CDT us Nicole Garcia PA-C LAB - URINE ORDERABLES Final R esult LABORATORY [facility] Lab [address] [facility] Lab (no room number, 1st floor of clinic) [place] [address], [facility] documented in this encounter Visit Diagnoses Diagnosis Vagina, candidiasis- Primary Candidiasis of vulva and vagina Bacterial vaginosis Vaginitis and vulvovaginitis, unspecified Nasal congestion Other diseases of nasal cavity and sinuses documented in this encounter Additional Health Concerns Assessment Noted Time PHQ-9 Depression Total Score: 3 02/07/20 24 9:33 AM CDT documented as of this encounter Care Teams Reconciliation Accountant Relationship Specialty Start Date End Date Esha Grimm PA-C [address] [place] [phone] PCP - General Family Medicine 05/04/23 Diana Desir, [facility] [address] [place] [address] Pharmacist Pharmacist 04/17/21 Rain Galaviz PA-C [address] [place] [address] [place] [address] Physician Sheet Metal Welder Dermatology 04/28/21 Tavia Wyatt MD [address] [place] [address] [address] [place] [address] Dermatology 07/14/21 Erica Farrell APRN BASKETBALL REFEREE [address] [place], [place] 4877[address] Nurse Practitioner Cardiovascular Disease 09/09/21 Rich Barrett MD [address] [place] [address] [address] [place], [place] 031245 Physician Ophthalmology 01/21/22 Neil Kent MD 500 [place], [place] 011735 Dermatology 02/24/22 [facility] 3033 [place], [place] 683296 Assigned MTM Pharmacist 04/07/22 Livan Sharif MD [address] 688585 Cardiovascular Disease 05/14/22 Catherine Cm MD [address] [address] Cardiovascular Disease 07/21/22 Valery Veronica, PA-C 909 [place], [place] 762795 Physician Sheet Metal Welder Dermatology 07/21/22 Brea Quinn APRN BASKETBALL REFEREE 500 [place], [place] 850802 Nurse Practitioner Dermatology 09/21/22 Brea Quinn APRN BASKETBALL REFEREE 6401 [facility] [place] [address] Assigned Surgical Provider 10/09/22 05/01/24 [place] [address] [facility] 300 [place] [address] Assigned Musculoskeletal Provider 10/09/22 05/01/24 Alfonso Renteria MD 5775 [facility] 200 [place], [place] 595766 Assigned Neuroscience Provider 04/02/23 Radha Lomeli APRN BASKETBALL REFEREE [address] [place] [id number] [place] [address] Assigned Heart and Vascular Provider 05/28/23 Jelena David OD [address] [facility] [place] [address] Ophthalmology 06/15/23 Esha Grimm PA-C [address] [place] [phone] Assigned PCP 07/16/23 Valery Veronica PA-C 9 [place], [place] 298165 Physician Sheet Metal Welder Dermatology 09/19/23 Rey Tay MD 9 [place], [place] 381255 MD Gastroenterology 09/20/23 Rocky Zepeda DO [address] [place] [address] 783055 Physician Gastroenterology 09/20/23 Philip Dumont MD [address] [place] [address] 838965 Physician Ophthalmology 09/22/23 Meredith Carrera PA-C [address] [place] [address] 609695 Assigned Gastroenterology Provider 11/01/23 Neil Kent MD [address] [address] Dermatology 11/02/23 [place] [address] [place] [id number] Neurological Surgery 12/26/23 documented as of this encounter
--- OUTSIDE RECORDS SUMMARY | 2024-05-27 08:47 | XMS_ITS | Encounter Summary ---
Author Organization [place] Address [address] [place] [address] Care Team Providers Care Custodial Aide Name Role Phone Diana Desir [facility] Unavailable Rain Galaviz PA-C Unavailable [phone] Tavia Wyatt MD Unavailable Unavailable Erica Farrell ACUTE CARE REGISTERED NURSE CARD CHECKER Unavailable Rich Barrett MD Unavailable Neil Kent MD Unavailable ThangDiana [facility] Unavailable [phone] Livan Sharif MD Unavailable Catherine Cm MD Unavailable + Valery Veronica PA-C Unavailable [phone] Brea Quinn ACUTE CARE REGISTERED NURSE CARD CHECKER Unavailable [phone] Brea Quinn ACUTE CARE REGISTERED NURSE CARD CHECKER Unavailable [phone] Jose Francisco Johnson MD Unavailable Alfonso Renteria MD Unavailable + [phone] Esha Grimm PA-C Primary Care Provider Radha Lomeli ACUTE CARE REGISTERED NURSE CARD CHECKER Unavailable Jelena David OD Unavailable [phone] Esha Grimm PA-C Unavailable [phone] Valery Veronica PA-C Unavailable [phone] Rey Tay MD Unavailable Rocky Zepeda DO Unavailable Philip Dumont MD Unavailable Meredith Carrera PA-C Unavailable Neil Kent MD Unavailable Juan Pablo Emmanuel MD Unavailable [phone] Audrey Waite PA-C Unavailable Valery Veronica PA-C Unavailable Reason for Visit * Reason Onset Date Comments Call Back 12/21/2023 Schedule appt to brandy Encounter Details Date Type Department Care Team (Late st Contact Info) Description 12/21/2023 Telephone [facility] [address] [place] [address] Livan Sharif MD [address] [facility] [address] [place] [address] Call Back (Schedule appt tomorrow [...] week 03/10/2023 How often do you attend [facility] or islam services? 1 to 4 times [...] Score 0 10/25/2023 [facility] critical access hospitalal Health - Occupational Stress Questionnaire Answer [...] exercise at this level? 30 min 03/10/2023 [place] Depression Scale Answer Date Recorded [place] Depression Score 5 01/14/2021 Last EPDS Self [...] PM CDT Legal Sex Female 4:13 AM STRATEGIC PLANNING ANALYST Gender Identity Female 03/02/2021 5:45 PM CDT [...] wait list with Dr. Sharif per msg. Ty-Bryni * Telephone Encounter - Carley Myles RN [...] on wait list for . Routing to museum service scheduler. Carley ZABALA [facility] * Telephone Encounter - Sandra Whiting - 12/21/2023 12:34 PM CDT [facility] Phone Message May a detailed message be left on voicemail: yes Reason for Call: Other: pt was calling to r/s her appt tomorrow with Kole that was scheduled per RN team. Pt [...] st Contact Info) Description 05/31/2024 8:40 AM STRATEGIC PLANNING ANALYST Therapy Visit [facility] [address] [place] [phone] Ingris Thompson, PT [facility] [address] [place] [address] 106 [place] [address] 05/31/2024 3:30 PM STRATEGIC PLANNING ANALYST Office Visit [facility] [address] [phone] Audrey Díaz PA-C Khan, Waseem, MD [address] [place] [address] [phone] 06/04/2024 3:30 PM STRATEGIC PLANNING ANALYST Office Visit [address] [place] [address] Jelena David, [place] [address] [facility] [place] [address] 06/11/2024 10:30 AM STRATEGIC PLANNING ANALYST Appointment [facility] Respiratory Therapy [address] [place] [phone] Spec, Nurse Only Med 06/18/2024 2:50 PM STRATEGIC PLANNING ANALYST Therapy Visit [facility] [place] [address] [facility] [address] [place] [phone] Ingris Thompson, PT [facility] 6 [facility] 106 [place], [place] 363545 06/21/2024 2:00 PM STRATEGIC PLANNING ANALYST Office Visit [facility] [place] [address] [place] [address], [address] [place] [phone] [place] [address] [place] [address] Johnny Penn MD 7284 [place] [address] 06/25/2024 8:30 AM STRATEGIC PLANNING ANALYST Office Visit [address] [address] Valery Veronica, PA-C [address] [place] [address] 384745 11/28/2024 7:45 AM CDT Virtual Visit [facility] [address] 4th [place] [phone] Meredith Carrera, PA-C [address] [place] [address] documented as of this encounter Visit Diagnoses Not on filedocumented in this encounter Additional Health Concerns Infection Onset Date Last Indicated Resolved Time Rule Out COVID-19 12/26/2023 12/26/2023 12/26/2023 9:50 AM CDT Rule Out COVID-19 04/09/2024 04/09/2024 04/10/2024 6:48 PM CDT Assessment Noted Time PHQ-9 Depression Total Score: 4 06/20/20 23 8:40 AM STRATEGIC PLANNING ANALYST documented as of this encounter Care Teams Custodial Aide Relationship Specialty Start Date End Date Esha Grimm PA-C [address] [place] [address] PCP - General Family Medicine 05/04/23 Diana Desir, [facility] [address] [place] [address] Pharmacist Pharmacist 04/17/21 Rain Galaviz PA-C [address] [place] [address] [address] [place] [address] Physician Woodwork Salvage Inspector Dermatology 04/28/21 Tavia Wyatt MD [address] [place] [address] [address] [place] [address] Dermatology 07/14/21 Erica Farrell APRN CARD CHECKER 6405 [facility] [address] [place] [address] Nurse Practitioner Cardiovascular Disease 09/09/21 Rich Barrett MD 516 [facility] 9A [place] [address] Physician Ophthalmology 7/14/22 Neil Kent MD 500 [place], [place] 634895 Dermatology 02/24/22 Diana Desir, [facility] 3033 [place], [place] 783316 Assigned MTM Pharmacist 04/07/22 Livan Sharif MD [address] [place] 980335 Cardiovascular Disease 05/14/22 Catherine Cm MD [address] [place] 565715 Cardiovascular Disease 07/21/22 Valery Veronica, PAUcheC 909 [place], [place] 589565 Physician Woodwork Salvage Inspector Dermatology 07/21/22 Brea Quinn APRN CARD CHECKER 500 [place] [address] Nurse Practitioner Dermatology 09/21/22 Brea Quinn APRN CARD CHECKER 64[address] [facility] [place] 409982 Assigned Surgical Provider 10/09/22 05/01/24 [place] [address] [place] [address] Assigned Musculoskeletal Provider 10/09/22 05/01/24 Alfonso Renteria MD [address] [facility] [address] 200 [place] [address] Assigned Neuroscience Provider 04/02/23 Lomeli Radha Stovall ACUTE CARE REGISTERED NURSE CARD CHECKER [address] [place] [address] Assigned Heart and Vascular Provider 05/28/23 Jelena David OD [address] [facility] [place] [address] MD Ophthalmology 06/15/23 Esha Grimm PA-C [address] [place] [address] Assigned PCP 07/16/23 Valery Veronica PA-C [address] [place] [address] 089035 Physician Woodwork Salvage Inspector Dermatology 09/19/23 Rey Tay MD [address] [place] [address] Gastroenterology 09/20/23 Rocky Zepeda DO [address] [place] [address] Physician Gastroenterology 09/20/23 Philip Dumont MD [address] [place] [address] 376965 Physician Ophthalmology 09/22/23 Meredith Carrera PA-C [address] [place] [address] Assigned Gastroenterology Provider 11/01/23 Neil Kent MD [address] [place] [address] Dermatology 11/02/23 [place] [address] [address] Neurological Surgery 12/26/23 Audrey [place] PA-C 500 [place] [address] Physician Woodwork Salvage Inspector Dermatology 02/28/24 Valery Veronica PA-C [id number] [place] [address] Physician Woodwork Salvage Inspector Dermatology 04/10/24 documented as of this encounter
--- OUTSIDE RECORDS SUMMARY | 2024-05-27 08:47 | XMS_ITS | Encounter Summary ---
Author Organization [place] Address [address] [place] [address] Care Team Providers Care Arboreal Scientist Name Role Phone Diana Desir [facility] Unavailable Rain Galaviz PA-C Unavailable Tavia Wyatt MD Unavailable Unavailable Erica Farrell TRUCK HEADLIGHT ASSEMBLER MACHINE GRINDER Unavailable Rich Barrett MD Unavailable Neil Kent MD Unavailable ThangDiana [facility] Unavailable [phone] Livan Sharif MD Unavailable Catherine Cm MD Unavailable + Valery Veronica PA-C Unavailable [phone] Brea Quinn TRUCK HEADLIGHT ASSEMBLER MACHINE GRINDER Unavailable Brea Quinn TRUCK HEADLIGHT ASSEMBLER MACHINE GRINDER Unavailable [phone] Jose Francisco Johnson MD Unavailable Alfonso Renteria MD Unavailable + [phone] Esha Grimm PA-C Primary Care Provider [phone] Radha Lomeli TRUCK HEADLIGHT ASSEMBLER MACHINE GRINDER Unavailable [phone] FrankieJelena OD Unavailable Pao Joseph RN Unavailable Unavailable Esha Grimm PA-C Unavailable [phone] Valery Veronica PA-C Unavailable [phone] Rey Tay MD Unavailable Rocky Zepeda DO Unavailable Philip Dumont MD Unavailable Meredith Carrera PA-C Unavailable [phone] Neil Kent MD Unavailable Juan Pablo Emmanuel MD Unavailable Audrey Waite PA-C Unavailable Valery Veronica PA-C Unavailable [phone] Encounter Details Date Type Department Care Team (Late st Contact Info) Description 10/25/2023 MyC Medical Advice [facility] G[facility]ology Clinic [address] [address] Nelly [place], RD 909 [place] [address] Social History Tobacco Use Types [...] 0 10/25/2023 [facility] ional [...] exercise at this level? 30 min 03/10/2023 [place] Depression Scale Answer Date Recorded [place] Depression Score 5 01/14/2021 Last EPDS Self [...] PM CDT Legal Sex Female 4:13 AM SUPERVISOR LAST MODEL DEPARTMENT Gender Identity Female 03/02/2021 5:45 PM CDT Sexual Orientation Straight 02/28/2020 12 :51 AM CDT documented as of this encounter Plan of Treatment Upcoming Encounters Date Type Department Care Team (Late st Contact Info) Description 05/31/2024 8:40 AM SUPERVISOR LAST MODEL DEPARTMENT Therapy Visit [facility] Services [address] 160 [place] [phone] Ingris Thompson, PT [facility] [address] [place] [address] 106 [place] [address] 05/31/2024 3:30 PM SUPERVISOR LAST MODEL DEPARTMENT Office Visit [facility] Specialty Clinic [address] [phone] Audrey Díaz PA-C Khan, Waseem, MD [address] [place] [address] [id number] 06/04/2024 3:30 PM SUPERVISOR LAST MODEL DEPARTMENT Office Visit [facility] [place] [address] [facility] [address] [place] [phone] Jelena David, 3305 [facility] [place] [address] 06/11/2024 10:30 AM SUPERVISOR LAST MODEL DEPARTMENT Appointment [facility] Respiratory Therapy [address] [place] [phone] Spec, Nurse Only Med 06/18/2024 2:50 PM SUPERVISOR LAST MODEL DEPARTMENT Therapy Visit [facility] Services [address] [place] [phone] Ingris Thompson, PT [facility] 6 [facility] 106 [place], [place] 452925 06/21/2024 2:00 PM SUPERVISOR LAST MODEL DEPARTMENT Office Visit [facility] Neurology [facility] [address] [place] [address], [address] [place] [address] [place] [address] [place] 468[address] Johnny Penn MD 6571 [place], [place] 182515 06/25/2024 8:30 AM SUPERVISOR LAST MODEL DEPARTMENT Office Visit [address] [phone] Valery Veronica PA-C [address] [place] [address] 11/28/2024 7:45 AM CDT Virtual Visit [facility] Gastroenterology [address] 4th [place] [phone] Meredith Carrera PA-C 909 [place] [address] documented as of this encounter Visit Diagnoses Not on filedocumented in this encounter Additional Health Concerns Infection Onset Date Last Indicated Resolved Time Rule Out COVID-19 12/26/2023 12/26/2023 12/26/2023 9:50 AM CDT Rule Out COVID-19 04/09/2024 04/09/2024 04/10/2024 6:48 PM CDT Assessment Noted Time PHQ-9 Depression Total Score: 4 06/20/20 23 8:40 AM SUPERVISOR LAST MODEL DEPARTMENT documented as of this encounter Care Teams Arboreal Scientist Relationship Specialty Start Date End Date Esha Grimm PA-C [address] [place] [address] PCP - General Family Medicine 05/04/23 Diana Desir, [facility] 3033 [facility] [place], [place] 494326 Pharmacist Pharmacist 04/17/21 Rain Galaviz PA-C [address] [place] [address] [address] [place] [address] Physician Metal Pourer Dermatology 04/28/21 Tavia Wyatt MD [address] [place] [address] [address] [place] [address] Dermatology 07/14/21 Erica Farrell APRN MACHINE GRINDER 6405 [facility] [address] [place] [address] Nurse Practitioner Cardiovascular Disease 09/09/21 Rich Barrett MD [address] 815735 Physician Ophthalmology 01/21/22 Neil Kent MD 500 [place], [place] 24[address]25 Dermatology 02/24/22 Diana Desir, [facility] [address] [place] [address] Assigned MTM Pharmacist 04/07/22 Livan Sharif MD [address] 641755 Cardiovascular Disease 05/14/22 Catherine Cm MD [address] 1899[address] Cardiovascular Disease 07/21/22 Valery Veronica, PA-C 909 [place], [place] 807355 Physician Metal Pourer Dermatology 07/21/22 Brea Quinn APRN MACHINE GRINDER 500 [place] [address] Nurse Practitioner Dermatology 09/21/22 Brea Quinn APRN MACHINE GRINDER [address] [place] [address] [place] 007612 Assigned Surgical Provider 10/09/22 05/01/24 [place] [address] 969137 Assigned Musculoskeletal Provider 10/09/22 05/01/24 Alfonso Renteria MD [address] 200 [place] [address] Assigned Neuroscience Provider 04/02/23 Radha Lomeli APRN MACHINE GRINDER 6405 [facility] [address] [place] [address] Assigned Heart and Vascular Provider 05/28/23 Jelena David OD [address] [facility] [address] Ophthalmology 06/15/23 Pao Joseph, VJ Personal Advocate & Liaison (PAL) Nurse 08/01/23 11/07/23 Esha Grimm PA-C [address] [place] [phone] Assigned PCP 07/16/23 Valery Veronica PA-C [address] [place] [address] 236935 Physician Metal Pourer Dermatology 09/19/23 Rey Tay MD [address] [place] [address] 842715 Gastroenterology 09/20/23 Rocky Zepeda DO [address] [place] [address] 416025 Physician Gastroenterology 09/20/23 Philip Dumont MD [address] [place] [address] Physician Ophthalmology 09/22/23 Meredith Carrera PA-C [address] [place] [address] Assigned Gastroenterology Provider 11/01/23 Neil Kent MD [address] [place] [address] Dermatology 11/02/23 [place] [address] [place] [address] Neurological Surgery 12/26/23 Audrey Waite PA-C [address] [place] [address] Physician Metal Pourer Dermatology 02/28/24 Valery Veronica PA-C 659963 [place] [address] Physician Metal Pourer Dermatology 04/10/24 documented as of this encounter
--- OUTSIDE RECORDS SUMMARY | 2024-05-27 08:47 | XMS_ITS | Encounter Summary ---
Author Organization [place] Address [address] [place] [address] Care Team Providers Care Ceo And Founder Name Role Phone Diana Desir [facility] Unavailable [phone] Rain Galaviz PA-C Unavailable Tavia Wyatt MD Unavailable Unavailable Erica Farrell UTILITY MECHANIC PRINTER[employer] DEVIL Unavailable Rich Barrett MD Unavailable Neil Kent MD Unavailable ThangDiana [facility] Unavailable [phone] Livan Sharif MD Unavailable Catherine Cm MD Unavailable + Valery Veronica PA-C Unavailable [phone] Brea Quinn UTILITY MECHANIC [employer] Unavailable Brea Quinn UTILITY MECHANIC [employer] Unavailable [phone] Jose Francisco Johnson MD Unavailable Alfonso Renteria MD Unavailable + [phone] Esha Grimm PA-C Primary Care Provider Radha Lomeli UTILITY MECHANIC [employer] Unavailable [phone] FrankieJelena OD Unavailable [phone] Pao Joseph RN Unavailable Unavailable Esha Grimm PA-C Unavailable Valery Veronica PA-C Unavailable Rey Tay MD Unavailable Rocky Zepeda DO Unavailable Philip Dumont MD Unavailable [phone] Meredith Carrera PA-C Unavailable [phone] Neil Kent MD Unavailable Juan Pablo Emmanuel MD Unavailable Audrey Waite PA-C Unavailable [phone] Valery Veronica PA-C Unavailable Encounter Details Date Type Department Care Team (Late st Contact Info) Description 10/24/2023 MyC Medical Advice [facility] Gastroenterology Clinic [address] [place] [address] Kenneth Denson Social History Tobacco [...] 0 10/25/2023 [facility] - Occupational Stress Questionnaire Answer Date [...] exercise at this level? 30 min 03/10/2023 [place] Depression Scale Answer Date Recorded [place] Depression Score 5 01/14/2021 Last EPDS Self [...] PM CDT Legal Sex Female 4:13 AM RISK OFFICER Gender Identity Female 03/02/2021 5:45 PM CDT Sexual Orientation Straight 02/28/2020 12 :51 AM CDT documented as of this encounter Plan of Treatment Upcoming Encounters Date Type Department Care Team (Late st Contact Info) Description 05/31/2024 8:40 AM RISK OFFICER Therapy Visit [facility] Rehabilitation Services [address] [place] [phone] Ingris Thompson, PT [facility] [address] [place] [address] 05/31/2024 3:30 PM RISK OFFICER Office Visit [facility] Specialty Clinic [address] [phone] Audrey Díaz, Herminia Koo MD [address] [place] [address] [phone] 06/04/2024 3:30 PM RISK OFFICER Office Visit [address] [place] [phone] Jelena David, [place] [address] [facility] [place] [address] 06/11/2024 10:30 AM RISK OFFICER Appointment [facility] Respiratory Therapy [address] [place] [address] Spec, Nurse Only Med 06/18/2024 2:50 PM RISK OFFICER Therapy Visit [facility] Rehabilitation Services [place] [address] [facility] [address] [place] [phone] Ingris Thompson, PT [facility] 516 [facility] 106 [place], [place] [address]475 06/21/2024 2:00 PM RISK OFFICER Office Visit [facility] Neurology Clinics - [place] [address] [place] [address], [address] [place] [phone] [place] [address] [place], [place] 09[address] Johnny Penn MD 7698 [place] [address] 06/25/2024 8:30 AM RISK OFFICER Office Visit [address] [phone] Valery Veronica PA-C [address] [place] [address] 728135 11/28/2024 7:45 AM CDT Virtual Visit [facility] Gastroenterology [address] 4th [place] [phone] Meredith Carrera PA-C [address] [place] [address] [phone] documented as of this encounter Visit Diagnoses Not on filedocumented in this encounter Additional Health Concerns Infection Onset Date Last Indicated Resolved Time Rule Out COVID-19 12/26/2023 12/26/2023 12/26/2023 9:50 AM CDT Rule Out COVID-19 04/09/2024 04/09/2024 04/10/2024 6:48 PM CDT Assessment Noted Time PHQ-9 Depression Total Score: 4 06/20/20 23 8:40 AM RISK OFFICER documented as of this encounter Care Teams Ceo And Founder Relationship Specialty Start Date End Date Esha Grimm PA-C [address] [place] [phone] PCP - General Family Medicine 05/04/23 Diana Desir, [facility] [address] [place], [place] 757[address] Pharmacist Pharmacist 04/17/21 Rain Galaviz PA-C [address] [place] [address] [address] [place] [address] Physician Distributed Energy Systems Consultant Dermatology 04/28/21 Tavia Wyatt MD [address] [place] [address] [address] [place] [address] Dermatology 07/14/21 Erica Farrell APRN PRINTER[employer] DEVIL [address] [facility] [address] [place] 8[address]405 Nurse Practitioner Cardiovascular Disease 09/09/21 Rich Barrett MD 516 [facility] 9A [place], [place] 0[address] Physician Ophthalmology 01/21/22 Neil Kent MD 500 [place] [address] Dermatology 02/24/22 Diana Desir, [facility] 3033 [place] [address] Assigned MTM Pharmacist 04/07/22 Livan Sharif MD [address] [facility] [place] 9[address]25 Cardiovascular Disease 05/14/22 Catherine Cm MD [address] [place] [address] [place] 920215 Cardiovascular Disease 07/21/22 Valery Veronica, PA-C 909 [place] [address] Physician Distributed Energy Systems Consultant Dermatology 07/21/22 Brea Quinn APRN [employer] 500 [place] [address] Nurse Practitioner Dermatology 09/21/22 Brea Quinn APRN [employer]INTER[employer] 6401 [place] [address] Assigned Surgical Provider 10/09/22 05/01/24 [place] [address] [place] [address] Assigned Musculoskeletal Provider 10/09/22 05/01/24 Alfonso Renteria MD [address] [place] [address] Assigned Neuroscience Provider 04/02/23 Lomeli Radha StovallARLENE PRINTER'[employer] DEVIL [address] [place], [place] 575095 Assigned Heart and Vascular Provider 05/28/23 Jelena David OD [address] [facility] [address] Ophthalmology 06/15/23 Pao Joseph, VJ Personal Advocate & Liaison (PAL) Nurse 08/01/23 11/07/23 Esha Grimm PA-C [address] [place] [phone] Assigned PCP 07/16/23 Valery Veronica PA-C [address] [place] [address] 000665 Physician Distributed Energy Systems Consultant Dermatology 09/19/23 Rey Tay MD [address] [place] [address] 109795 Gastroenterology 09/20/23 Rocky Zepeda DO [address] [place] [address] 343525 Physician Gastroenterology 09/20/23 Philip Dumont MD [address] [place] [address] 026795 Physician Ophthalmology 09/22/23 Meredith Carrera PA-C 909 [place] [address] Assigned Gastroenterology Provider 11/01/23 Neil Kent MD [address] [place] [address] Dermatology 11/02/23 [place] [address] [address] Neurological Surgery 12/26/23 Audrey Waite PA-C 500 [place] [address] Physician Distributed Energy Systems Consultant Dermatology 02/28/24 Valery Veronica PA-C [address] [place] [address] Physician Distributed Energy Systems Consultant Dermatology 04/10/24 documented as of this encounter
--- OUTSIDE RECORDS SUMMARY | 2024-05-27 08:47 | XMS_ITS | Encounter Summary ---
Author Organization [place] Address [address] [place] [address] Care Team Providers Care Reset Merchandiser Name Role Phone Diana Desir [facility] Unavailable Rain Galaviz PA-C Unavailable Tavia Wyatt MD Unavailable Unavailable Erica Farrell CHANGE ADVISOR FRONT OFFICE DIRECTOR Unavailable Rich Barrett MD Unavailable Neil Kent MD Unavailable ThangDiana [facility] Unavailable [phone] Livan Sharif MD Unavailable Catherine Cm MD Unavailable + Valrey Veronica PA-C Unavailable [phone] Brea Quinn CHANGE ADVISOR FRONT OFFICE DIRECTOR Unavailable Brea Quinn CHANGE ADVISOR FRONT OFFICE DIRECTOR Unavailable Jose Francisco Johnson MD Unavailable Alfonso Renteria MD Unavailable + [phone] Esha Grimm PA-C Primary Care Provider Radha Lomeli CHANGE ADVISOR FRONT OFFICE DIRECTOR Unavailable Jelena David OD Unavailable Esha Grimm PA-C Unavailable [phone] Valery Veronica PA-C Unavailable [phone] Rey Tay MD Unavailable Rocky Zepeda DO Unavailable Philip Dumont MD Unavailable [phone] Meredith Carrera PA-C Unavailable [phone] Neil Kent MD Unavailable Juan Pablo Emmanuel MD Unavailable [phone] Audrey Waite PA-C Unavailable [phone] Valery Veronica PA-C Unavailable [phone] Encounter Details Date Type Department Care Team (Late st Contact Info) Description 11/15/2023 [facility] Medical Advice [address] [address] Vivian Grant Social History Tobacco [...] 10/25/2023 [facility] Occupat [facility] [...] PM CDT Legal Sex Female 4:13 AM AEROSPACE MANAGER Gender Identity Female 03/02/2021 5:45 PM CDT Sexual Orientation Straight 02/28/2020 12 :51 AM CDT documented as of this encounter Plan of Treatment Upcoming Encounters Date Type Department Care Team (Late st Contact Info) Description 05/31/2024 8:40 AM AEROSPACE MANAGER Therapy Visit [facility] [address] [place] [phone] Ingris Thompson, PT [facility] [address] [place] [address] 05/31/2024 3:30 PM AEROSPACE MANAGER Office Visit [facility] [address] [phone] Audrey Díaz PA-C Khan, Waseem, MD [address] [place] [address] [phone] 06/04/2024 3:30 PM AEROSPACE MANAGER Office Visit [address] [place] [phone] Jelena David, SONJA [address] [facility] [place] [address] 06/11/2024 10:30 AM AEROSPACE MANAGER Appointment [facility] Respiratory Therapy [address] [place] [address] Spec, Nurse Only Med 06/18/2024 2:50 PM AEROSPACE MANAGER Therapy Visit [facility] [place] [address] [place] [address] [address] [place] [phone] Ingris Thompson, PT [facility] 516 [facility] 106 [place], [place] [address] 06/21/2024 2:00 PM AEROSPACE MANAGER Office Visit [facility] - [place] [address] [place] [address], [address] [place] [phone] [place] [address] [place] [address] Johnny Penn MD 5194 [place], [place] 345595 06/25/2024 8:30 AM AEROSPACE MANAGER Office Visit [address] [phone] Valery Veronica, PAUcheC [address] [place] [address] 11/28/2024 7:45 AM CDT Virtual Visit [facility] [address] 4th [place] [phone] Meredith Carrera, PAUcheC [address] [place] [address] 131815 documented as of this encounter Visit Diagnoses Not on filedocumented in this encounter Additional Health Concerns Infection Onset Date Last Indicated Resolved Time Rule Out COVID-19 12/26/2023 12/26/2023 12/26/2023 9:50 AM CDT Rule Out COVID-19 04/09/2024 04/09/2024 04/10/2024 6:48 PM CDT Assessment Noted Time PHQ-9 Depression Total Score: 4 06/20/20 8:40 AM AEROSPACE MANAGER documented as of this encounter Care Teams Reset Merchandiser Relationship Specialty Start Date End Date Esha Grimm PA-C [address] [place] [address] PCP - General Family Medicine 05/04/23 Diana Desir, [facility] [address] [place], [place] 541766 Pharmacist Pharmacist 04/17/21 Rain Galaviz PA-C [address] [place] [address] [address] [place] [address] Physician Manager Site Dermatology 04/28/21 Tavia Wyatt MD [address] [place] [address] [address] [place] [facility] [address] Dermatology 07/14/21 Erica Farrell APRN FRONT OFFICE DIRECTOR [address] [facility] [address] [place] [address] Nurse Practitioner Cardiovascular Disease 09/09/21 Rich Barrett MD 516 [facility] 9A [place] [address] Physician Ophthalmology 01/21/22 Neil Kent MD 500 [place] [address] Dermatology 02/24/22 Diana Desir, [facility] 3033 [place] [address] Assigned [place] Pharmacist 04/07/22 Livan Sharif MD 6405 [facility] [place], [place] 991925 Cardiovascular Disease 05/14/22 Catherine Cm MD 6405 [facility] [address] 058045 Cardiovascular Disease 07/21/22 Valery Veronica, PA-C 909 [place] [address] Physician Manager Site Dermatology 07/21/22 Brea Quinn APRN FRONT OFFICE DIRECTOR 500 [place] [address] Nurse Practitioner Dermatology 09/21/22 Brea Quinn APRN FRONT OFFICE DIRECTOR [address] [place] [address] Assigned Surgical Provider 10/09/22 05/01/24 [place] [address] [address] Assigned Musculoskeletal Provider 10/09/22 05/01/24 Alfonso Renteria MD [address] 200 [place] [address] Assigned Neuroscience Provider 04/02/23 Radha Lomeli APRN FRONT OFFICE DIRECTOR [address] [place] [address] Assigned Heart and Vascular Provider 05/28/23 [place] [address] [facility] [place] [address] MD Ophthalmology 06/15/23 Esha Grimm PA-C [address] [place] [address]485[address] Assigned PCP 07/16/23 Valery Veronica PA-C [address] [place] [address] Physician Manager Site Dermatology 09/19/23 Rey Tay MD [address] [place] [address] 408195 Gastroenterology 09/20/23 Rocky Zepeda DO [address] [place] [address] 524195 Physician Gastroenterology 09/20/23 Philip Dumont MD [address] [place] [address] 500925 Physician Ophthalmology 09/22/23 Meredith Carrera PA-C [address] [place] [address] 078455 Assigned Gastroenterology Provider 11/01/23 Neil Kent MD [address] [place] [address] Dermatology 11/02/23 [place] [address] 445507 Neurological Surgery 12/26/23 Audrey Waite PA-C 500 [place], [place] 9[address]995 Physician Manager Site Dermatology 02/28/24 Valery Veronica PA-C [address] [place] [address] Physician Manager Site Dermatology 04/10/24 documented as of this encounter
--- OUTSIDE RECORDS SUMMARY | 2024-05-27 08:47 | XMS_ITS | Encounter Summary ---
Author Organization [place] Address [address] [place] [address] Care Team Providers Care Sustainability Consultant Name Role Phone Diana Desir [facility] Unavailable Rain Galaviz PA-C Unavailable Tavia Wyatt MD Unavailable Unavailable Erica Farrell DATA CONTROL CLERK SUPERVISOR UNIVERSITY CONTROLLER Unavailable Rich Barrett MD Unavailable Neil Kent MD Unavailable ThangDiana [facility] Unavailable [phone] Livan Sharif MD Unavailable Catherine Cm MD Unavailable + Valery Veronica PA-C Unavailable [phone] Brea Quinn DATA CONTROL CLERK SUPERVISOR UNIVERSITY CONTROLLER Unavailable [phone] Brea Quinn DATA CONTROL CLERK SUPERVISOR UNIVERSITY CONTROLLER Unavailable Jose Francisco Johnson MD Unavailable Alfonso Renteria MD Unavailable + [phone] Esha Grimm PA-C Primary Care Provider Radha Lomeli DATA CONTROL CLERK SUPERVISOR UNIVERSITY CONTROLLER Unavailable [phone] Jelena David OD Unavailable Esha Grimm PA-C Unavailable [phone] Valery Veronica PA-C Unavailable Rey Tay MD Unavailable Marimar Zepedashximena [facility] Unavailable Philip Dumont MD Unavailable [phone] Meredith Carrera PA-C Unavailable Neil Kent MD Unavailable Juan Pablo Emmanuel MD Unavailable Audrey Waite PA-C Unavailable Valery Veronica PA-C Unavailable Reason for Visit * Reason Onset Date Comments Appointment 12/02/2023 Clarification Encounter Details Date Type Department Care Team (Late st Contact Info) Description 12/02/2023 Telephone [facility] Heart [facility] [address] [facility] [address] [place] [address] Radha Lomeli APRN [facility] 6405 [facility] [address] [place], [place] [address] Appointment (Clarification) Social History Tobacco Use Types [...] do you attend [facility]? 1 to 4 [...] 10/25/2023 [facility]at [facility] [...] exercise at this level? 30 min 03/10/2023 [place] Depression Scale Answer Date Recorded [place] Depression Score 5 01/14/2021 Last EPDS Self [...] PM CDT Legal Sex Female 4:13 AM TOOL SUPERVISOR Gender Identity Female 03/02/2021 5:45 PM CDT Sexual Orientation Straight 02/28/2020 12 :51 AM CDT documented as of this encounter Miscellaneous Notes * Telephone Encounter - Carley Myles RN - 12/02/2023 10:22 AM CDT Discussed with patient and reviewed questions. Questions pertaining to OV's scheduled. Carley [facility] * Telephone Encounter - Janett Fragoso - 12/02/2023 8:56 AM CDT [facility] [...] st Contact Info) Description 05/31/2024 8:40 AM TOOL SUPERVISOR Therapy Visit [facility] [address] [place] [address] 160 [place] [address] Ingris Thompson, PT [facility] [address] [place] [address] 05/31/2024 3:30 PM TOOL SUPERVISOR Office Visit [facility] Specialty [address] [phone] Audrey Díaz PA-C Khan, Waseem, MD [address] [place] [address] 06/04/2024 3:30 PM TOOL SUPERVISOR [facility] [address] [place] [address] [address] [place] [phone] Jelena David, [address] [place] [address] 06/11/2024 10:30 AM TOOL SUPERVISOR Appointment [facility] Respiratory Therapy [address] [place] [address] Spec, Nurse Only Med 06/18/2024 2:50 PM TOOL SUPERVISOR Therapy Visit [facility] [address] [facility] [address] [place] [address] Ingris Thompson, PT [address] [address] 06/21/2024 2:00 PM TOOL SUPERVISOR Office Visit [facility] Neurology Clinics - [address], [address] [place] [address] [place] [address] [place], [place] 84[address] Johnny Penn MD [address] [place] [address] 06/25/2024 8:30 AM TOOL SUPERVISOR Office Visit [address] [address] Valery Veronica PA-C [address] [place] [address] 11/28/2024 7:45 AM CDT Virtual Visit [facility] Gastroenterology Clinic [address]th [place] [address] Meredith Carrera PA-C [address] [place] [address] 714305 documented as of this encounter Visit Diagnoses Not on filedocumented in this encounter Additional Health Concerns Infection Onset Date Last Indicated Resolved Time Rule Out COVID-19 12/26/2023 12/26/2023 12/26/2023 9:50 AM CDT Rule Out COVID-19 04/09/2024 04/09/2024 04/10/2024 6:48 PM CDT Assessment Noted Time PHQ-9 Depression Total Score: 4 06/20/20 23 8:40 AM TOOL SUPERVISOR documented as of this encounter Care Teams Sustainability Consultant Relationship Specialty Start Date End Date Esha Grimm PA-C [address] [place] [address] PCP - General Family Medicine 05/04/23 Diana Desir, [facility] 3033 [place] [address] Pharmacist Pharmacist 04/17/21 Rain Galaviz PA-C [address] [place] [address] [address] [place] [address] Physician Watch Leader Dermatology 04/28/21 Tavia Wyatt MD [address] [place] [address] DR [address] L[address] [facility] [address] Dermatology 07/14/21 Erica Farrell APRN UNIVERSITY CONTROLLER [address] [place] [address] Nurse Practitioner Cardiovascular Disease 09/09/21 Rich Barrett MD [address] [place] [address] 266135 Physician Ophthalmology 01/21/22 Neil Kent MD [address] [place] [address] 534835 Dermatology 02/24/22 Diana Desir, [facility] 3033 [place] [address] Assigned MTM Pharmacist 04/07/22 Livan Sharif MD [address] [place] 136895 Cardiovascular Disease 05/14/22 Catherine Cm MD [address] [place] 518235 Cardiovascular Disease 07/21/22 Valery Veronica PA-C 909 [place], [place] 381715 Physician Watch Leader Dermatology 07/21/22 Brea Quinn APRN UNIVERSITY CONTROLLER 500 [place], [place] 9[address] Nurse Practitioner Dermatology 09/21/22 Brea Quinn APRN UNIVERSITY CONTROLLER 6401 [facility] [place] 792662 Assigned Surgical Provider 10/09/22 05/01/24 [place] [address] [place] [address] [address] Assigned Musculoskeletal Provider 10/09/22 05/01/24 Alfonso Renteria MD [address] [facility] 200 [place], [place] 755126 Assigned Neuroscience Provider 04/02/23 Radha Lomeli APRN UNIVERSITY CONTROLLER 6405 [facility] [place] [address] Assigned Heart and Vascular Provider 05/28/23 Jelena David OD 3305 [facility] [place] [phone] Ophthalmology 06/15/23 Esha Grimm PA-C [address] [place] [address]-488[address]283 Assigned PCP 07/16/23 Valery Veronica PA-C 909 [place], [place] 6335[address] Physician Watch Leader Dermatology 09/19/23 Rey Tay MD 9 [place] [address] MD Gastroenterology 09/20/23 Rocky Zepeda DO 500 [place], [place] 411665 Physician Gastroenterology 09/20/23 Philip Dumont MD [address] [place] [address] 550835 Physician Ophthalmology 09/22/23 Meredith Carrera PA-C 9 [place], [place] 97[address] Assigned Gastroenterology Provider 11/01/23 Neil Kent MD [address] [address] Dermatology 11/02/23 [place] [address] [facility] [place] [address] Neurological Surgery 12/26/23 Audrey Waite PA-C 500 [place] [address] Physician Watch Leader Dermatology 02/28/24 Valery Veronica PA-C [address] [place] [address] Physician Watch Leader Dermatology 04/10/24 documented as of this encounter
--- OUTSIDE RECORDS SUMMARY | 2024-05-27 08:47 | XMS_ITS | Encounter Summary ---
Author Organization [place] Address [address] [place] [address] Care Team Providers Care Regional Account Director Name Role Phone Diana Desir [facility] Unavailable [phone] Rain Galaviz PA-C Unavailable Tavia Wyatt MD Unavailable Unavailable Erica Farrell FORMULA CLERK POWER MANAGER Unavailable Rich Barrett MD Unavailable Neil Kent MD Unavailable ThangDiana [facility] Unavailable [phone] Livan Sharif MD Unavailable Catherine Cm MD Unavailable + Valery Veronica PA-C Unavailable [phone] Brea Quinn FORMULA CLERK POWER MANAGER Unavailable [phone] Brea Quinn FORMULA CLERK POWER MANAGER Unavailable Jose Francisco Johnson MD Unavailable Alfonso Renteria MD Unavailable + [phone] Esha Grimm PA-C Primary Care Provider [phone] Radha Lomeli FORMULA CLERK POWER MANAGER Unavailable [phone] Jelena David OD Unavailable Esha GrimmC Unavailable [phone] Valery VeronicaC Unavailable [phone] Rey Tay MD Unavailable Duane Rockyanne STEVENS Unavailable Philip Dumont MD Unavailable [phone] Meredith CarreraC Unavailable [phone] Neil Kent MD Unavailable Juan Pablo Emmanuel MD Unavailable [phone] Encounter Details Date Type Department Care Team [...] often do you attend [facility]? 1 to 4 times [...] Date Recorded PHQ-2 Score 1 02/07/2024 [facility] Occupat ional [facility] - [...] exercise at this level? 30 min 03/10/2023 [place] Depression Scale Answer Date Recorded [place] Depression Score 5 01/14/2021 Last EPDS [...] PM CDT Legal Sex Female 4:13 AM RN ASSESSMENT Gender Identity Female 03/02/2021 5:45 PM CDT Sexual Orientation Straight 02/28/2020 12 :51 AM CDT documented as of this encounter Plan of Treatment Upcoming Encounters Date Type Department Care Team (Late st Contact Info) Description 05/31/2024 8:40 AM RN ASSESSMENT Therapy Visit [facility] Rehabilitation Services [address] [place] [phone] Ingris Thompson, PT [facility] [address] [place] [address] 05/31/2024 3:30 PM RN ASSESSMENT Office Visit [facility] Specialty Clinic [place] 1875 [place] [phone] Audrey Díaz, Herminia Koo MD 1875 [place], [place] [phone] 06/04/2024 3:30 PM RN ASSESSMENT Office Visit [facility] [address] ENMA German [phone] Jelena David, SONJA [address] [place] [address] [place] [address] 06/11/2024 10:30 AM RN ASSESSMENT Appointment [facility] Respiratory Therapy [address] [place] [phone] Spec, Nurse Only Med 06/18/2024 2:50 PM RN ASSESSMENT Therapy Visit [facility] Rehabilitation Services [place] [address] [facility] [address] [place] [phone] Ingris Thompson, PT [facility] [address] [facility] 106 [place], [place] 8316[address] 06/21/2024 2:00 PM RN ASSESSMENT Office Visit [facility] Neurology Clinics - [place] [address] [facility], [address] [place] [phone] [place] [address] [place] [address] Johnny Penn MD 1924 [place] [address] 06/25/2024 8:30 AM RN ASSESSMENT Office Visit [address] [phone] Valery Veronica PA-C [address] [place] [address] 828005 11/28/2024 7:45 AM CDT Virtual Visit [facility] Gastroenterology Clinic [address] 4th [place] [phone] Meredith Carrera PA-C [address] [place] [address] 794625 documented as of this encounter Visit Diagnoses Not on filedocumented in this encounter Additional Health Concerns Assessment Noted Time PHQ-9 Depression Total Score: 3 02/07/20 24 9:33 AM CDT documented as of this encounter Care Teams Regional Account Director Relationship Specialty Start Date End Date Esha Grimm PA-C [address] [place] [address] PCP - General Family Medicine 05/04/23 Diana Desir, [facility] [address] [place] [address] Pharmacist Pharmacist 04/17/21 Rain Galaviz PA-C [address] [place] [address] [address] [place] [address] Physician Adult Manager Dermatology 04/28/21 Tavia Wyatt MD [address] [place] [address] [place] [address] Dermatology 07/14/21 Erica Farrell APRN POWER MANAGER [address] [place] [address] Nurse Practitioner Cardiovascular Disease 09/09/21 Rich Barrett MD [address] [place] [address] 652225 Physician Ophthalmology 01/21/22 Neil Kent MD [address] [place] [address] 982415 Dermatology 02/24/22 Diana Desir, [facility] [address] [place] [address] 24[address] Assigned MTM Pharmacist 04/07/22 Livan Sharif MD [address] [place] 173815 Cardiovascular Disease 05/14/22 Catherine mC MD [address] [facility] [address] [place] [address] Cardiovascular Disease 07/21/22 Valery Veronica, PAUcheC 909 [place], [place] 116535 Physician Adult Manager Dermatology 07/21/22 Brea Quinn APRN POWER MANAGER [address] [place] [address] 621785 Nurse Practitioner Dermatology 09/21/22 Brea Quinn APRN POWER MANAGER 6401 [facility] [place] 778342 Assigned Surgical Provider 10/09/22 05/01/24 [place] [address] [address] [facility] 300 [place] [address] Assigned Musculoskeletal Provider 10/09/22 05/01/24 Alfonso Renteria MD [address] [facility] 200 [place], [place] 894276 Assigned Neuroscience Provider 04/02/23 Radha Lomeli APRN POWER MANAGER [address] [place] [phone] [place] 889865 Assigned Heart and Vascular Provider 05/28/23 Jelena David OD [address] [facility] [place] [address] MD Ophthalmology 06/15/23 Esha Grimm PA-C [address] [place] [phone] Assigned PCP 07/16/23 Valery Veronica PA-C [address] [place] [address] 132475 Physician Adult Manager Dermatology 09/19/23 Rey Tay MD [address] [place] [address] 582525 MD Gastroenterology 09/20/23 Rocky Zepeda DO [address] [place] [address] 690395 Physician Gastroenterology 09/20/23 Philip Dumont MD [address] [place] [address] 543005 Physician Ophthalmology 09/22/23 Meredith Carrera PA-C [address] [place] [address] 644865 Assigned Gastroenterology Provider 11/01/23 Neil Kent MD [address] [place] [address] Dermatology 11/02/23 [place] [address] [place] [address] Neurological Surgery 12/26/23 documented as of this encounter
--- OUTSIDE RECORDS SUMMARY | 2024-05-27 08:47 | XMS_ITS | Encounter Summary ---
Author Organization [place] Address [address] [place] [address]357 Care Team Providers Care Booster Plant Operator Name Role Phone Diana Desir [facility] Unavailable Rain Galaviz PA-C Unavailable [phone] Tavia Wyatt MD Unavailable Unavailable Erica Farrell DATABASE DESIGN ANALYST SPECIAL AGENT [employer] Unavailable Rich Barrett MD Unavailable Neil Kent MD Unavailable ThangDiana [facility] Unavailable [phone] Livan Sharif MD Unavailable Catherine Cm MD Unavailable + Valery Veronica PA-C Unavailable [phone] Brea Quinn DATABASE DESIGN ANALYST SPECIAL AGENT [employer] Unavailable Brea Quinn DATABASE DESIGN ANALYST SPECIAL AGENT [employer] Unavailable Jose Francisco Johnson MD Unavailable Alfonso Renteria MD Unavailable + [phone] Esha Grimm PA-C Primary Care Provider Radha Lomeli DATABASE DESIGN ANALYST SPECIAL AGENT [employer] Unavailable [phone] FrankieJelena OD Unavailable Pao Joseph RN Unavailable Unavailable Esha Grimm PA-C Unavailable [phone] Valery Veronica PA-C Unavailable [phone] Rey Tay MD Unavailable Rocky Zepeda DO Unavailable Philip Dumont MD Unavailable [phone] Meredith Carrera PA-C Unavailable Neil Kent MD Unavailable Juan Pablo Emmanuel MD Unavailable Audrey Waite PA-C Unavailable [phone] Valery Veronica PA-C Unavailable [phone] Encounter Details Date Type Department Care Team (Late st Contact Info) Description 10/26/[address] [facility] Gastroenterology Clinic [address] [place] [address] Wesley Powell Social History Tobacco [...] Answer Date Recorded PHQ-2 Score 0 10/25/2023 [facility] - Occupational Stress Questionnaire Answer [...] exercise at this level? 30 min 03/10/2023 [place] Depression Scale Answer Date Recorded [place] Depression Score 5 01/14/2021 Last EPDS Self [...] PM CDT Legal Sex Female 4:13 AM SAP BW DEVELOPER Gender Identity Female 03/02/2021 5:45 PM CDT Sexual Orientation Straight 02/28/2020 12 :51 AM CDT documented as of this encounter Plan of Treatment Upcoming Encounters Date Type Department Care Team (Late st Contact Info) Description 05/31/2024 8:40 AM SAP BW DEVELOPER Therapy Visit [facility] Rehabilitation Services [address] [place] [phone] Ingris Thompson, PT [facility] [address] [place] [address] 05/31/2024 3:30 PM SAP BW DEVELOPER Office Visit [facility] Specialty Clinic [address] [phone] Audrey Díaz, Herminia Koo MD [address] [place] [address] [phone] 06/04/2024 3:30 PM SAP BW DEVELOPER Office Visit [address] [place] [phone] Jelena David, OD [address] [facility] [address] 06/11/2024 10:30 AM SAP BW DEVELOPER Appointment [facility] Respiratory Therapy [address] [place] [address]538514 Spec, Nurse Only Med 06/18/2024 2:50 PM SAP BW DEVELOPER Therapy Visit [facility] Rehabilitation Services [place] [address] [place] [address] [address] [place] [phone] Ingris Thompson, PT [facility] [address] [facility] 106 [place], [place] 162035 06/21/2024 2:00 PM SAP BW DEVELOPER Office Visit [facility] Neurology Clinics - [place] [address] [place] [address], [address] [place] [address] [place] [address] [place], [place] 781[address] Johnny Penn MD 0123 [place] [address] 06/25/2024 8:30 AM SAP BW DEVELOPER Office Visit [address] [phone] Valery Veronica PA-C [address] [place] [address] 302885 11/28/2024 7:45 AM CDT Virtual Visit [facility] Gastroenterology [facility] [address] [place] [address] 4th [place] [phone] Meredith Carrera PA-C [address] [place] [address] 090285 documented as of this encounter Visit Diagnoses Not on filedocumented in this encounter Additional Health Concerns Infection Onset Date Last Indicated Resolved Time Rule Out COVID-19 12/26/2023 12/26/2023 12/26/2023 9:50 AM CDT Rule Out COVID-19 04/09/2024 04/09/2024 04/10/2024 6:48 PM CDT Assessment Noted Time PHQ-9 Depression Total Score: 4 06/20/20 23 8:40 AM SAP BW DEVELOPER documented as of this encounter Care Teams Booster Plant Operator Relationship Specialty Start Date End Date Esha Grimm PA-C [address] [place] [address] PCP - General Family Medicine 05/04/23 Diana Desir, [facility] [address] [place], [place] 3025[address] Pharmacist Pharmacist 04/17/21 Rain Galaviz PA-C [address] [place] [address] [address] [place] [address] Physician Customs Consultant Dermatology 04/28/21 Tavia Wyatt MD [address] [place] [address] [address] [place] [address] Dermatology 07/14/21 Erica Farrell APRN SPECIAL AGENT [employer] [address] [facility] [address] [place] 557705 Nurse Practitioner Cardiovascular Disease 09/09/21 Rich Barrett MD 516 [facility] 9[address] [place], [place] 218305 Physician Ophthalmology 01/21/22 Neil Kent MD 500 [place] [address] Dermatology 02/24/22 Diana Desir, [facility] 3033 [place] [address] Assigned [place] Pharmacist 04/07/22 Livan Sharif MD [address] [facility] [address] [place] 637035 Cardiovascular Disease 05/14/22 Catherine Cm MD [address] [place] [address] [place] 889365 Cardiovascular Disease 07/21/22 Valery Veronica, PA-C 909 [place] [address] Physician Customs Consultant Dermatology 07/21/22 Brea Quinn APRN SPECIAL AGENT [employer] 500 [place] [address] Nurse Practitioner Dermatology 09/21/22 Brea Quinn APRN SPECIAL AGENT [employer] 6401 [place] [address] Assigned Surgical Provider 10/09/22 05/01/24 [place] [address] [place] [address] Assigned Musculoskeletal Provider 10/09/22 05/01/24 MyraAlfonso garcia MD [address] [place] [address] Assigned Neuroscience Provider 04/02/23 Armani Radha Stovall DATABASE DESIGN ANALYST SPECIAL AGENT [employer] [address] [place], [place] 354845 Assigned Heart and Vascular Provider 05/28/23 Jelena David OD [address] [facility] [address] Ophthalmology 06/15/23 Pao Joseph, VJ Personal Advocate & Liaison (PAL) Nurse 08/01/23 11/07/23 Esha Grimm PA-C [address] [place] [phone] Assigned PCP 07/16/23 Valery Veronica PA-C [address] [place] [address] 033705 Physician Customs Consultant Dermatology 09/19/23 Rey Tay MD [address] [place] [address] 843755 Gastroenterology 09/20/23 Rocky Zepeda DO [address] [place] [address] 468095 Physician Gastroenterology 09/20/23 Philip Dumont MD [address] [place] [address] 356235 Physician Ophthalmology 09/22/23 Meredith Carrera PA-C 909 [place] [address] Assigned Gastroenterology Provider 11/01/23 Neil Kent MD [address] [place] [address] Dermatology 11/02/23 [place] [address] [address] [address] Neurological Surgery 12/26/23 Audrey Waite PA-C 500 [place] [address] Physician Customs Consultant Dermatology 02/28/24 Valery Veronica PA-C [address] [place] [address] Physician Customs Consultant Dermatology 04/10/24 documented as of this encounter
--- OUTSIDE RECORDS SUMMARY | 2024-05-27 08:47 | XMS_ITS | Encounter Summary ---
Author Organization [place] Address [address] [place] [address]51 Care Team Providers Care Manager Medical Device Name Role Phone Diana Desir [facility] Unavailable [phone] Rain Galaviz PA-C Unavailable Tavia Wyatt MD Unavailable Unavailable Erica Farrell NEUROLOGICAL SURGEON MACHINING ENGINEER Unavailable Rich Barrett MD Unavailable Neil Kent MD Unavailable ThangDiana [facility] Unavailable [phone] Livan Sharif MD Unavailable Catherine Cm MD Unavailable + Valery Veronica PA-C Unavailable [phone] Brea Quinn NEUROLOGICAL SURGEON MACHINING ENGINEER Unavailable Brea Quinn NEUROLOGICAL SURGEON MACHINING ENGINEER Unavailable [phone] Jose Francisco Johnson MD Unavailable Alfonso Renteria MD Unavailable + [phone] Esha Grimm PA-C Primary Care Provider [phone] Radha Lomeli NEUROLOGICAL SURGEON MACHINING ENGINEER Unavailable [phone] Jelena David OD Unavailable [phone] Esha Grimm PA-C Unavailable [phone] Valery Veronica PA-C Unavailable Rye Tay MD Unavailable Rocky Zepeda DO Unavailable Philip Dumont MD Unavailable Meredith Carrera PA-C Unavailable Neil Kent MD Unavailable Juan Pablo Emmanuel MD Unavailable Audrey Waite PA-C Unavailable [phone] Valery Veronica PA-C Unavailable Encounter Details Date Type Department Care Team (Late st Contact Info) Description 11/21/2023 MyC Medical Advice [facility] Gastroenterology Clinic [address] [place] [address] Sofia Alcantar Social History Tobacco [...] Recorded PHQ-2 Score 0 10/25/2023 [facility] Health - Occupational Stress Questionnaire [...] exercise at this level? 30 min 03/10/2023 [place] Depression Scale Answer Date Recorded [place] Depression Score 5 01/14/2021 Last EPDS Self [...] PM CDT Legal Sex Female 4:13 AM GERICARE AIDE TEACHER Gender Identity Female 03/02/2021 5:45 PM CDT Sexual Orientation Straight 02/28/2020 12 :51 AM CDT documented as of this encounter Plan of Treatment Upcoming Encounters Date Type Department Care Team (Late st Contact Info) Description 05/31/2024 8:40 AM GERICARE AIDE TEACHER Therapy Visit [facility] Rehabilitation Services [address] [place] [phone] Ingris Thompson, PT [facility] [address] [place] [address] 05/31/2024 3:30 PM GERICARE AIDE TEACHER Office Visit [facility] Specialty [address] [phone] Audrey Díaz PA-C Khan, Waseem, MD [address] [place] [address] [phone] 06/04/2024 3:30 PM GERICARE AIDE TEACHER Office Visit [address] [place] [phone] [place] [address] [place] [address] [place] [address] 06/11/2024 10:30 AM GERICARE AIDE TEACHER Appointment [facility] Respiratory Therapy [address] [place] [address]14 Spec, Nurse Only Med 06/18/2024 2:50 PM GERICARE AIDE TEACHER Therapy Visit [facility] Rehabilitation Services [address] [place] [phone] Ingris Thompson, PT [facility] [address] [facility] 106 [place], [place] 239065 06/21/2024 2:00 PM GERICARE AIDE TEACHER Office Visit [facility] Neurology Clinics - [place] [address] [place] [address], [address] [place] [phone] [place] [address] [place] [address] Johnny Penn MD 8501 [place], [place] 309815 06/25/2024 8:30 AM GERICARE AIDE TEACHER Office Visit [address] [phone] Valery Veronica PA-C [address] [place] [address] 11/28/2024 7:45 AM CDT Virtual Visit [facility] Gastroenterology Clinic [address] 4th [place] [phone] Meredith Carrera PAUcheC [address] [place] [address] 213905 documented as of this encounter Visit Diagnoses Not on filedocumented in this encounter Additional Health Concerns Infection Onset Date Last Indicated Resolved Time Rule Out COVID-19 12/26/2023 12/26/2023 12/26/2023 9:50 AM CDT Rule Out COVID-19 04/09/2024 04/09/2024 04/10/2024 6:48 PM CDT Assessment Noted Time PHQ-9 Depression Total Score: 4 06/20/20 23 8:40 AM GERICARE AIDE TEACHER documented as of this encounter Care Teams Manager Medical Device Relationship Specialty Start Date End Date Esha Grimm PA-C [address] [place] [address] PCP - General Family Medicine 05/04/23 Diana Desir, [facility] [address] [place], [place] [address] Pharmacist Pharmacist 04/17/21 Rain Galaviz PA-C [address] [place] [address] [address] [place] [address] Physician Manufacturing Teacher Dermatology 04/28/21 Tavia Wyatt MD [address] [place] [address] [address] [place] [address] Dermatology 07/14/21 Erica aFrrell APRN MACHINING ENGINEER 6405 [facility] [address] [place] [address] Nurse Practitioner Cardiovascular Disease 09/09/21 Rich Barrett MD 516 [facility] 9A [place] [address] Physician Ophthalmology 01/21/22 Neil Kent MD 500 [place] [address] Dermatology 02/24/22 Diana Desir, [facility] 3033 [place] [address] Assigned [place] Pharmacist 04/07/22 Livan Sharif MD [address] [facility] [place] [address] Cardiovascular Disease 05/14/22 Catherine Cm MD [address] [facility] [place] 283175 Cardiovascular Disease 07/21/22 Valery Veronica, PA-C 909 [place] [address] Physician Manufacturing Teacher Dermatology 07/21/22 Brea Quinn APRN MACHINING ENGINEER 500 [place] [address] Nurse Practitioner Dermatology 09/21/22 Brea Quinn APRN MACHINING ENGINEER [address] [place] [address] Assigned Surgical Provider 10/09/22 05/01/24 [place] [address] [address] Assigned Musculoskeletal Provider 10/09/22 05/01/24 Alfonso Renteria MD [address] [place] [address] Assigned Neuroscience Provider 04/02/23 Armani Radha ARLENE Stovall MACHINING ENGINEER [address] [place] [address] Assigned Heart and Vascular Provider 05/28/23 Jelena David OD [address] [place] [address] MD Ophthalmology 06/15/23 Esha Grimm PA-C [address] [place] [phone] Assigned PCP 07/16/23 Valery Veronica PA-C [address] [place] [address] 460755 Physician Manufacturing Teacher Dermatology 09/19/23 Rey Tay MD [address] [place] [address] 645075 Gastroenterology 09/20/23 Rocky Zepeda DO [address] [place] [address] 114315 Physician Gastroenterology 09/20/23 Philip Dumont MD [address] [place] [address] 951175 Physician Ophthalmology 09/22/23 Meredith Carrera PA-C [address] [place] [address] 981625 Assigned Gastroenterology Provider 11/01/23 Neil Kent MD [address] [place] [address] Dermatology 11/02/23 [place] [address] 650677 Neurological Surgery 12/26/23 Audrey Waite PA-C 500 [place] [address] Physician Manufacturing Teacher Dermatology 02/28/24 Valery Veronica PA-C [address] [place] [address] Physician Manufacturing Teacher Dermatology 04/10/24 documented as of this encounter
--- OUTSIDE RECORDS SUMMARY | 2024-05-27 08:47 | XMS_ITS | Encounter Summary ---
Author Organization [facility] Address [address] [place] [address] Care Team Providers Care Opera Singer Name Role Phone Diana Desir [facility] Unavailable Rain Galaviz PA-C Unavailable [phone] Tavia Wyatt MD Unavailable Unavailable Erica aFrrell SHREDDING FLOOR EQUIPMENT OPERATOR SUPERVISOR REFINING Unavailable Rich Barrett MD Unavailable Neil Kent MD Unavailable ThangDiana [facility] Unavailable [phone] Livan Sharif MD Unavailable Catherine Cm MD Unavailable + Valery Veronica PA-C Unavailable [phone] Brea Quinn SHREDDING FLOOR EQUIPMENT OPERATOR SUPERVISOR REFINING Unavailable [phone] Brea Quinn SHREDDING FLOOR EQUIPMENT OPERATOR SUPERVISOR REFINING Unavailable Jose Francisco Johnson MD Unavailable Alfonso Renteria MD Unavailable + [phone] Esha Grimm PA-C Primary Care Provider Radha Lomeli SHREDDING FLOOR EQUIPMENT OPERATOR SUPERVISOR REFINING Unavailable [phone] Jelena Daivd OD Unavailable Esha Grimm PA-C Unavailable [phone] Valery Veronica PA-C Unavailable Rey Tay MD Unavailable Rocky Zepeda DO Unavailable Philip Dumont MD Unavailable Meredith Carrera PA-C Unavailable Neil Kent MD Unavailable Juan Pablo Emmanuel MD Unavailable [phone] Audrey Waite PA-C Unavailable [phone] Valery Veronica PA-C Unavailable [phone] Encounter Details Date Type Department Care Team (Late st Contact Info) Description 02/27/2024 MyC Medical Advice [facility] [address] [place] [address] Ebony Cid APRN [facility] [address] [place] [address] Social History Tobacco Use Types [...] do you attend chur or methodist services? 1 to 4 times [...] Answer Date Recorded PHQ-2 Score 1 02/07/2024 [facility] [place] of Occupat ional Health - Occupational Stress [...] exercise at this level? 30 min 03/10/2023 [place] Depression Scale Answer Date Recorded [place] Depression Score 5 01/14/2021 Last EPDS Self [...] PM CDT Legal Sex Female 4:13 AM SURVEILLANCE INVESTIGATOR Gender Identity Female 03/02/2021 5:45 PM CDT Sexual Orientation Straight 02/28/2020 12 :51 AM CDT documented as of this encounter Plan of Treatment Upcoming Encounters Date Type Department Care Team (Late st Contact Info) Description 05/31/2024 8:40 AM SURVEILLANCE INVESTIGATOR Therapy Visit [facility] [address] [place] [phone] Ingris Thompson, PT [facility] [address] [place] [address] 106 [place] [address] 05/31/2024 3:30 PM SURVEILLANCE INVESTIGATOR Office Visit [address] [phone] Audrey Díaz, Herminia Koo MD [address] [place] [address] 06/04/2024 3:30 PM SURVEILLANCE INVESTIGATOR Office [facility] [place] [address] [facility] [address] [place] [phone] Jelena David, OD 3305 [facility] [place] [address] 06/11/2024 10:30 AM SURVEILLANCE INVESTIGATOR Appointment [facility] Respiratory Therapy [address] [place] [phone] Spec, Nurse Only Med 06/18/2024 2:50 PM SURVEILLANCE INVESTIGATOR Therapy Visit [facility] [address] [place] [phone] Ingris Thompson, PT [facility] 6 [facility] 106 [place] [address] 06/21/2024 2:00 PM SURVEILLANCE INVESTIGATOR Office Visit [facility] [place] [address] [place] [address], [address] [place] [phone] [place] [address] [address] [place] [address] Johnny Penn MD 6546 [place], [place] 530165 06/25/2024 8:30 AM SURVEILLANCE INVESTIGATOR Office Visit [address] [phone] Valery Veronica, PA-C [address] [place] [address] 11/28/2024 7:45 AM CDT Virtual Visit [facility] [place] 854959 [facility] 4th [place] [phone] Meredith Carrera PA-C 909 [place] [address] documented as of this encounter Visit Diagnoses Not on filedocumented in this encounter Additional Health Concerns Infection Onset Date Last Indicated Resolved Time Rule Out COVID-19 04/09/2024 04/09/2024 04/10/2024 6:48 PM CDT Assessment Noted Time PHQ-9 Depression Total Score: 3 02/07/20 24 9:33 AM CDT documented as of this encounter Care Teams Opera Singer Relationship Specialty Start Date End Date Esha Grimm PA-C [address] [place] [phone] PCP - General Family Medicine 05/04/23 Diana Desir, [facility] [address] [place], [place] 9[address] Pharmacist Pharmacist 04/17/21 Rain Galaviz PA-C [address] [place] [address] [address] [place] [address] Physician Glue Spreader Dermatology 04/28/21 Tavia Wyatt MD [address] [place] [address] [address] [facility] [address] Dermatology 07/14/21 Erica Farrell APRN SUPERVISOR REFINING 6405 [facility] [address] [place] [address] Nurse Practitioner Cardiovascular Disease 09/09/21 Rich Barrett MD 516 [facility]A [place], [place] 6415[address] Physician Ophthalmology 01/21/22 Neil Kent MD 500 [place] [address] Dermatology 02/24/22 Diana Desir, [facility] 3033 [place] [address] Assigned [place] Pharmacist 04/07/22 Livan Sharif MD [address] [facility] [address] [place] [address]15 Cardiovascular Disease 05/14/22 Catherine Cm MD [address] [place] [address] [place] [address] Cardiovascular Disease 07/21/22 Valery Veronica, PA-C 909 [place] [address] Physician Glue Spreader Dermatology 07/21/22 Brea Quinn APRN SUPERVISOR REFINING 500 [place] [address] Nurse Practitioner Dermatology 09/21/22 Brea Quinn APRN SUPERVISOR REFINING 6401 [place] [address] Assigned Surgical Provider 10/09/22 05/01/24 [place] [address] [place] [address] Assigned Musculoskeletal Provider 10/09/22 05/01/24 MyraAlfonso garcia MD [address] [place] [address] Assigned Neuroscience Provider 04/02/23 Radha Lomeli APRN SUPERVISOR REFINING [address] [place], [place] [address] Assigned Heart and Vascular Provider 05/28/23 Jelena David OD [address] [facility] [place] [address] MD Ophthalmology 06/15/23 Esha Grimm PA-C [address] [place] [phone] Assigned PCP 07/16/23 Valery Veronica PA-C [address] [place] [address] 618015 Physician Glue Spreader Dermatology 09/19/23 Rey Tay MD [address] [place] [address] 016615 Gastroenterology 09/20/23 Rocky Zepeda DO [address] [place] [address] 412355 Physician Gastroenterology 09/20/23 Philip Dumont MD [address] [place] [address] 241755 Physician Ophthalmology 09/22/23 Meredith Carrera PA-C [address] [place] [address] 627435 Assigned Gastroenterology Provider 11/01/23 Neil Kent MD [address] [address] Dermatology 11/02/23 [place] [address] 588207 Neurological Surgery 12/26/23 Audrey Waite PA-C 500 [place] [address] Physician Glue Spreader Dermatology 02/28/24 Valery Veronica PA-C 497728 [place] [address] Physician Glue Spreader Dermatology 04/10/24 documented as of this encounter
--- OUTSIDE RECORDS SUMMARY | 2024-05-27 08:47 | XMS_ITS | Encounter Summary ---
Author Organization [facility] Address [address] [place] [address] Care Team Providers Care Production Shift Supervisor Name Role Phone Diana Desir [facility] Unavailable Rain Galaviz PA-C Unavailable Tavia Wyatt MD Unavailable Unavailable Erica Farrell [facility] Unavailable Rich Barrett MD Unavailable Neil Kent MD Unavailable ThangDiana [facility] Unavailable [phone] Livan Sharif MD Unavailable Catherine Cm MD Unavailable + Valery Veronica PA-C Unavailable [phone] Brea Qiunn [facility] Unavailable Brea Quinn [facility] Unavailable [phone] Jose Francisco Johnson MD Unavailable Alfonso Renteria MD Unavailable + [phone] Esha Grimm PA-C Primary Care Provider [phone] Radha Lomeli [facility] OUT [facility] Unavailable [phone] FrankieJelena OD Unavailable [facility] PA-C Unavailable [phone] Valery Veronica PA-C Unavailable Rey Tay MD Unavailable Duane Rockyanne [facility] Unavailable Philip Dumont MD Unavailable [phone] Meredith Carrera PA-C Unavailable Neil Kent MD Unavailable Juan Pablo Emmanuel MD Unavailable [phone] Audrey Waite PA-C Unavailable [phone] Reason for Visit * Reason Onset Date Comments Pt. Information/instruction 02/28/2024 EGD Encounter Details Date Type Department Care Team ([facility] Contact Info) Description 02/28/2024 Telephone [facility] [address] [place] [address] Annabelle Wetzel, VJ Pt. Information/instruction [...] Answer Date Recorded PHQ-2 Score 1 02/07/2024 [facility] of Occupat ional [...] exercise at this level? 30 min 03/10/2023 [place] Depression Scale Answer Date Recorded [place] Depression Score 5 01/14/2021 Last EPDS Self [...] PM CDT Legal Sex Female 4:13 AM PRECIPITATION EQUIPMENT TENDER Gender Identity Female 03/02/2021 5:45 PM CDT Sexual Orientation Straight 02/28/2020 12 :51 AM CDT documented as of this encounter Miscellaneous Notes * Telephone Encounter - Annabelle Wetzel RN - 03/01/2024 10:04 AM CDT Second call attempt to complete pre assessment. No answer. Left message to return call to [phone] #4 by next business day prior to 4PM or procedure will be sent to cancel. Callback required communication sent via [employer]. Annabelle Wetzel RN Endoscopy Procedure Pre Assessment * Telephone Encounter - Rain Burnette RN - 02/28/2024 4:04 PM CDT Attempted to contact patient in order to complete pre assessment questions. Patient scheduled for Upper endoscopy (EGD) on 03/07/24 No answer. Left message to return call to [phone] option 4 Callback required communication sent via [employer]. Rain Burnette RN Endoscopy Procedure Pre Assessment * Telephone Encounter - Annabelle Wetzel RN - 02/28/2024 3:48 PM CDT Pre visit planning completed. Procedure details: Patient scheduled for Upper endoscopy (EGD) on 03/07/24. Arrival time: 0800. Procedure time 0900 Facility location: [facility]; [address] [place] [address], 5th Floor, [place] [address]. Check in location: 5th Floor. Sedation type: [...] Prep for procedure: Prep instructions sent via [employer] Annabelle Wetzel RN Endoscopy Procedure Pre optoelectronic technician [phone] option 4 documented in this encounter Plan of Treatment Upcoming Encounters Date Type Department Care Team (Late st Contact Info) Description 05/31/2024 8:40 AM PRECIPITATION EQUIPMENT TENDER Therapy Visit [facility] [address] [place] [phone] Ingris Thompson, PT [facility] [address] [place] [address] 106 [place] [address] 05/31/2024 3:30 PM PRECIPITATION EQUIPMENT TENDER Office Visit [facility] [address] [phone] Audrey Díaz, Herminia Koo MD [address] [place] [address] [phone] 06/04/2024 3:30 PM PRECIPITATION EQUIPMENT TENDER Office Visit [facility] [place] [address] [facility] [address] [place] [phone] Jelena David, OD 3305 [facility] [place] [address] 06/11/2024 10:30 AM PRECIPITATION EQUIPMENT TENDER Appointment [facility] Respiratory Therapy [address] [place] [phone] Spec, Nurse Only Med 06/18/2024 2:50 PM PRECIPITATION EQUIPMENT TENDER Therapy Visit [facility] [address] [place] [phone] Ingris Thompson, PT [facility] 6 [facility] 106 [place], [place] 48[address] 06/21/2024 2:00 PM PRECIPITATION EQUIPMENT TENDER Office Visit [facility] Neurology [facility] [address] [place] [address], [address] [place] [phone] [place] [address] [place], [place] [address] Johnny Penn MD 7266 [facility] [place], [place] [address] 06/25/2024 8:30 AM PRECIPITATION EQUIPMENT TENDER Office Visit [address] [phone] Valery Veronica PAUcheC [address] [place] [address] 295135 11/28/2024 7:45 AM CDT Virtual Visit [facility] Gastroenterology [address] 4th [place] [phone] Meredith Carrera PA-C 909 [place], [place] 722555 documented as of this encounter Visit Diagnoses Not on filedocumented in this encounter Additional Health Concerns Assessment Noted Time PHQ-9 Depression Total Score: 3 02/07/20 24 9:33 AM CDT documented as of this encounter Care Teams Production Shift Supervisor Relationship Specialty Start Date End Date Esha Grimm PA-C [address] [place] [phone] PCP - General Family Medicine 05/04/23 Diana Desir, [facility] [address] [place] [address] Pharmacist Pharmacist 04/17/21 Rain Galaviz PA-C [address] [place] [address] [address] [facility] [place] [address] Physician Personnel Clerks Supervisor Dermatology 04/28/21 Tavia Wyatt MD [address] [place] [address] [address] 250 [facility] [place] [address] Dermatology 07/14/21 Erica Farrell APRN PICK OUT HAND [address] [facility] [address] [place] [address] Nurse Practitioner Cardiovascular Disease 09/09/21 Rich Barrett MD 516 [facility] 9A [place], [place] [address] Physician Ophthalmology 01/21/22 Neil Kent MD 500 [place] [address] Dermatology 02/24/22 Diana Desir, [facility] 3033 [place] [address] Assigned [place] Pharmacist 04/07/22 Livan Sharif MD [address] [place] 3433600 [place] [address] Cardiovascular Disease 05/14/22 Catherine Cm MD [address] 634325 Cardiovascular Disease 07/21/22 Valery Veronica, PA-C [address] [place] [address] Physician Personnel Clerks Supervisor Dermatology 07/21/22 Brea Quinn APRN PICK OUT HAND 500 [place] [address] Nurse Practitioner Dermatology 09/21/22 Brea Quinn APRN PICK OUT HAND [address] [place] [address] Assigned Surgical Provider 10/09/22 05/01/24 [place] [address] [facility] 300 [place] [address] Assigned Musculoskeletal Provider 10/09/22 05/01/24 Alfonso Renteria MD 5775 [facility] 200 [place] [address] Assigned Neuroscience Provider 04/02/23 Radha Lomeli APRN PICK OUT HAND [address] [place] [address] Assigned Heart and Vascular Provider 05/28/23 Jelena David OD 3305 [facility] [place] [place] [address] MD Ophthalmology 06/15/23 Esha Grimm PA-C [address] [place] [phone] Assigned PCP 07/16/23 Valery Veronica PA-C [address] [place] [address] 866585 Physician Personnel Clerks Supervisor Dermatology 09/19/23 Rey Tay MD [address] [place] [address] 325195 Gastroenterology 09/20/23 Rocky Zepeda DO [address] [place] [address] 865275 Physician Gastroenterology 09/20/23 Philip Dumont MD [address] [place] [address] 739875 Physician Ophthalmology 09/22/23 Meredith Carrera PA-C [address] [place] [address] 571225 Assigned Gastroenterology Provider 11/01/23 Neil Kent MD [address] [address] Dermatology 11/02/23 [place] [address] [place] [address] 904667 Neurological Surgery 12/26/23 Audrey Waite PA-C 500 [place], [place] 454855 Physician Personnel Clerks Supervisor Dermatology 02/28/24 documented as of this encounter
--- OUTSIDE RECORDS SUMMARY | 2024-05-27 08:47 | XMS_ITS | Encounter Summary ---
Author Organization [facility] Address [address] [place] [address] Care Team Providers Care Sourcing Assistant Name Role Phone Diana Desir [facility] Unavailable Rain Galaviz PA-C Unavailable [phone] Tavia Wyatt MD Unavailable Unavailable Erica Farrell [employer] MECHANIC WELDER MANUFACTURE Unavailable Rich Barrett MD Unavailable Neil Kent MD Unavailable ThangDiana [facility] Unavailable [phone] Livan Sharif MD Unavailable Catherine Cm MD Unavailable + Valery Veronica PA-C Unavailable [phone] Brea Quinn [employer]IGGING [employer] CONTROLS AIRCRAFT MECHANIC WELDER MANUFACTURE Unavailable Brea Quinn [employer]IGGING [employer] CONTROLS AIRCRAFT MECHANIC WELDER MANUFACTURE Unavailable Jose Francisco Johnson MD Unavailable Alfonso Renteria MD Unavailable + [phone] Esha Grimm PA-C Primary Care Provider Radha Lomeli [employer]IGGING AND CONTROLS AIRCRAFT MECHANIC WELDER MANUFACTURE Unavailable [phone] Jelena David OD Unavailable Esha Grimm PA-C Unavailable [phone] Valery Veronica PA-C Unavailable [phone] Rey Tay MD Unavailable Rocky Zepeda DO Unavailable Philip Dumont MD Unavailable Meredith Carrera PA-C Unavailable Neil Kent MD Unavailable Juan Pablo Emmanuel MD Unavailable [phone] Audrey Waite PA-C Unavailable [phone] Valery Veronica PA-C Unavailable Encounter Details Date Type Department Care Team (Late st Contact Info) Description 11/16/2023 MyC Medical Advice [address] [address] Asiya Reddy, RN Social History [...] exercise at this level? 30 min 03/10/2023 [place] Depression Scale Answer Date Recorded [place] Depression Score 5 01/14/2021 Last EPDS Self [...] PM CDT Legal Sex Female 4:13 AM DEBURRING AND TOOLING MACHINE OPERATOR Gender Identity Female 03/02/2021 5:45 PM CDT Sexual Orientation Straight 02/28/2020 12 :51 AM CDT documented as of this encounter Plan of Treatment Upcoming Encounters Date Type Department Care Team (Late st Contact Info) Description 05/31/2024 8:40 AM DEBURRING AND TOOLING MACHINE OPERATOR Therapy Visit [facility] [address] [place] [phone] Ingris Thompson, PT [facility] [address] [place] [address] 05/31/2024 3:30 PM DEBURRING AND TOOLING MACHINE OPERATOR Office Visit [facility] [address] [phone] Audrey Díaz PA-C Khan, Waseem, MD [address] [place] [address] [phone] 06/04/2024 3:30 PM DEBURRING AND TOOLING MACHINE OPERATOR Office Visit [address] [place] [phone] Jelena David, OD 3305 [facility] [place] [address] 06/11/2024 10:30 AM DEBURRING AND TOOLING MACHINE OPERATOR Appointment [facility] Respiratory Therapy [address] [place] [address] Spec, Nurse Only Med 06/18/2024 2:50 PM DEBURRING AND TOOLING MACHINE OPERATOR Therapy Visit [facility] [address] [place] [phone] Ingris Thompson, PT [facility] 516 [facility] 106 [place], [place] 75[address]95 06/21/2024 2:00 PM DEBURRING AND TOOLING MACHINE OPERATOR Office Visit [facility] [place] [address] [place] [address], [address] [place] [phone] [place] [address] [place] [address] Johnny Penn MD 7657 [place], [place] 318355 06/25/2024 8:30 AM DEBURRING AND TOOLING MACHINE OPERATOR Office Visit [address] [phone] Valery Veronica PA-C [address] [place] [address] 11/28/2024 7:45 AM CDT Virtual Visit [facility] [address] 4th [place] [phone] Meredith Carrera PA-C [address] [place] [address] 677565 documented as of this encounter Visit Diagnoses Not on filedocumented in this encounter Additional Health Concerns Infection Onset Date Last Indicated Resolved Time Rule Out COVID-19 12/26/2023 12/26/2023 12/26/2023 9:50 AM CDT Rule Out COVID-19 04/09/2024 04/09/2024 04/10/2024 6:48 PM CDT Assessment Noted Time PHQ-9 Depression Total Score: 4 06/20/20 23 8:40 AM DEBURRING AND TOOLING MACHINE OPERATOR documented as of this encounter Care Teams Sourcing Assistant Relationship Specialty Start Date End Date Esha Grimm PA-C [address] [place] [address] PCP - General Family Medicine 05/04/23 Diana Desir, [facility] [address] [place], [place] [address] Pharmacist Pharmacist 04/17/21 Rain Galaviz PA-C [address] [place] [address] [address] [place] [address] Physician Finishing Department Supervisor Dermatology 04/28/21 Tavia Wyatt MD [address] [place] [address] [address] [place] [address] Dermatology 07/14/21 Erica Farrell APRN WELDER MANUFACTURE [address] [facility] [address] [place] [address] Nurse Practitioner Cardiovascular Disease 09/09/21 Rich Barrett MD 516 [facility] 9A [place] [address] Physician Ophthalmology 01/21/22 Neil Kent MD 500 [place] [address] Dermatology 02/24/22 Diana Desir, [facility] 3033 [place] [address] Assigned [place] Pharmacist 04/07/22 Livan Sharif MD [address], [facility] [address] [place] [address] Cardiovascular Disease 05/14/22 Catherine Cm MD [address] [facility]00 [place], [place] 9267[address] Cardiovascular Disease 07/21/22 Valery Veronica, PA-C 909 [place] [address] Physician Finishing Department Supervisor Dermatology 07/21/22 Brea Quinn APRN WELDER MANUFACTURE 500 [place] [address] Nurse Practitioner Dermatology 09/21/22 Brea Quinn APRN WELDER MANUFACTURE [address] [place] [address] Assigned Surgical Provider 10/09/22 05/01/24 [place] [address] [address] Assigned Musculoskeletal Provider 10/09/22 05/01/24 Alfonso Renteria MD [address] [place] [address] Assigned Neuroscience Provider 04/02/23 Radha Lomeli APRN WELDER MANUFACTURE [address] [place] [address] Assigned Heart and Vascular Provider 05/28/23 Jelena David OD [address] [place] [address] MD Ophthalmology 06/15/23 Esha Grimm PA-C [address] [place] [address]83 Assigned PCP 07/16/23 Valery Veronica PA-C [address] [place] [address] 196905 Physician Finishing Department Supervisor Dermatology 09/19/23 Rey Tay MD [address] [place] [address] 613725 Gastroenterology 09/20/23 Rocky Zepeda DO [address] [place] [address] 407665 Physician Gastroenterology 09/20/23 Philip Dumont MD [address] [place] [address] 503975 Physician Ophthalmology 09/22/23 Meredith Carrera PA-C [address] [place] [address] 811605 Assigned Gastroenterology Provider 11/01/23 Neil Kent MD [address] [address] Dermatology 11/02/23 [place] [address] [place] [address] 409137 Neurological Surgery 12/26/23 Audrey Waite PA-C 500 [place], [place] 600405 Physician Finishing Department Supervisor Dermatology 02/28/24 Valery Veronica PA-C [address] [place] [address] Physician Finishing Department Supervisor Dermatology 04/10/24 documented as of this encounter
--- OUTSIDE RECORDS SUMMARY | 2024-05-27 08:47 | XMS_ITS | Encounter Summary ---
Author Organization [place] Address [address] [place] [address] Care Team Providers Care Relocation Specialist Name Role Phone Diana Desir [facility] Unavailable [phone] Rain Galaviz PA-C Unavailable Tavia Wyatt MD Unavailable Unavailable Erica Farrell SUPERVISOR ROD PLACING INSIGHTS ANALYST Unavailable Rich Barrett MD Unavailable Neil Kent MD Unavailable ThangDiana [facility] Unavailable [phone] Livan Sharif MD Unavailable Catherine Cm MD Unavailable + Valery Veronica PA-C Unavailable [phone] Brea Quinn SUPERVISOR ROD PLACING INSIGHTS ANALYST Unavailable Brea Quinn SUPERVISOR ROD PLACING INSIGHTS ANALYST Unavailable [phone] Jose Francisco Johnson MD Unavailable Alfonso Renteria MD Unavailable + [phone] Esha Grimm PA-C Primary Care Provider [phone] Radha Lomeli SUPERVISOR ROD PLACING INSIGHTS ANALYST Unavailable [phone] Jelena David OD Unavailable Esha Grimm PA-C Unavailable [phone] Valery Veronica PA-C Unavailable Rey Tay MD Unavailable Rocky Zepeda DO Unavailable Philip Dumont MD Unavailable Meredith Carrera PA-C Unavailable [phone] Neil Kent MD Unavailable Juan Pablo Emmanuel MD Unavailable [phone] Audrey Waite PA-C Unavailable [phone] Valery Veronica PA-C Unavailable Encounter Details Date Type Department Care Team (Late st Contact Info) Description 11/21/2023 MyC Medical Advice [facility] [address]th [place] [address] Sofia Alcantar Social History Tobacco [...] PHQ-2 Score 0 10/25/2023 [facility]ational Stress [...] exercise at this level? 30 min 03/10/2023 [place] Depression Scale Answer Date Recorded [place] Depression Score 5 01/14/2021 Last EPDS [...] PM CDT Legal Sex Female 4:13 AM MEATMAN Gender Identity Female 03/02/2021 5:45 PM CDT Sexual Orientation Straight 02/28/2020 12 :51 AM CDT documented as of this encounter Plan of Treatment Upcoming Encounters Date Type Department Care Team (Late st Contact Info) Description 05/31/2024 8:40 AM MEATMAN Therapy Visit [facility] [address] [place] [phone] Ingris Thompson, PT [facility] [address] [place] [address] 05/31/2024 3:30 PM MEATMAN Office Visit [facility] Specialty [address] [phone] Audrey Díaz PA-C Khan, Waseem, MD [address] [place] [address] [phone] 06/04/2024 3:30 PM MEATMAN Office Visit [address] [place] [phone] [place] [address] [place] [address] [place] [address] 06/11/2024 10:30 AM MEATMAN Appointment [facility] Respiratory Therapy [address] [place] [address] Spec, Nurse Only Med 06/18/2024 2:50 PM MEATMAN Therapy Visit [facility] [address] [place] [phone] Ingris Thompson, PT [facility] 516 [facility] 106 [place], [place] [address] 06/21/2024 2:00 PM MEATMAN Office Visit [facility] [place] [address] [place] [address], [address] [place] [phone] [place] [address] [place] [address] Johnny Penn MD 1985 [place], [place] 531615 06/25/2024 8:30 AM MEATMAN Office Visit [address] [phone] Valery Veronica PA-C [address] [place] [address] 11/28/2024 7:45 AM CDT Virtual Visit [facility] [address] 4th [place] [phone] Meredith Carrera PAUcheC [address] [place] [address] 683825 documented as of this encounter Visit Diagnoses Not on filedocumented in this encounter Additional Health Concerns Infection Onset Date Last Indicated Resolved Time Rule Out COVID-19 12/26/2023 12/26/2023 12/26/2023 9:50 AM CDT Rule Out COVID-19 04/09/2024 04/09/2024 04/10/2024 6:48 PM CDT Assessment Noted Time PHQ-9 Depression Total Score: 4 06/20/20 23 8:40 AM MEATMAN documented as of this encounter Care Teams Relocation Specialist Relationship Specialty Start Date End Date Esha Grimm PA-C [address] [place] [address] PCP - General Family Medicine 05/04/23 Diana Desir, [facility] [address] [place], [place] [address] Pharmacist Pharmacist 04/17/21 Rain Galaviz PA-C [address] [place] [address] [address] [place] [address] Physician Android Ui Developer Dermatology 04/28/21 Tavia Wyatt MD [address] [place] [address] [address] [place] [address] Dermatology 07/14/21 Erica Farrell APRN INSIGHTS ANALYST 6[address] [facility] [address] [place] [address] Nurse Practitioner Cardiovascular Disease 09/09/21 Rich Barrett MD 516 [facility] 9A [place] [address] Physician Ophthalmology 01/21/22 Neil Kent MD 500 [place] [address] Dermatology 02/24/22 Diana Desir, [facility] 3033 [place] [address] Assigned [place] Pharmacist 04/07/22 Livan Sharif MD [address] [facility]00 [place] [address] Cardiovascular Disease 05/14/22 Catherine Cm MD [address] [facility]00 [place] 735455 Cardiovascular Disease 07/21/22 Valery Veronica, PA-C 909 [place] [address] Physician Android Ui Developer Dermatology 07/21/22 Brea Quinn APRN INSIGHTS ANALYST 500 [place] [address] Nurse Practitioner Dermatology 09/21/22 Brea Quinn APRN INSIGHTS ANALYST [address] [place] [address] Assigned Surgical Provider 10/09/22 05/01/24 [place] [address] [address] Assigned Musculoskeletal Provider 10/09/22 05/01/24 Alfonso Renteria MD [address] [place] [address] Assigned Neuroscience Provider 04/02/23 Armani Radha ARLENE Stovall INSIGHTS ANALYST [address] [place] [address] Assigned Heart and Vascular Provider 05/28/23 Jelena David OD [address] [place] [address] MD Ophthalmology 06/15/23 Esha Grimm PA-C [address] [place] [phone] Assigned PCP 07/16/23 Valery Veronica PA-C [address] [place] [address] 574495 Physician Android Ui Developer Dermatology 09/19/23 Rey Tay MD [address] [place] [address] 162245 Gastroenterology 09/20/23 Rocky Zepeda DO [address] [place] [address] 157705 Physician Gastroenterology 09/20/23 Philip Dumont MD [address] [place] [address] 096625 Physician Ophthalmology 09/22/23 Meredith Carrera PA-C [address] [place] [address] 893145 Assigned Gastroenterology Provider 11/01/23 Neil Kent MD [address] [place] [address] Dermatology 11/02/23 [place] [address] 259767 Neurological Surgery 12/26/23 Audrey Waite PA-C 500 [place] [address] Physician Android Ui Developer Dermatology 02/28/24 Valery Veronica PA-C [address] [address] Physician Android Ui Developer Dermatology 04/10/24 documented as of this encounter
--- OUTSIDE RECORDS SUMMARY | 2024-05-27 08:47 | XMS_ITS | Encounter Summary ---
Author Organization [place] Address [address] [place] [address] Care Team Providers Care In File Operator Name Role Phone Diana Desir [facility] Unavailable [phone] Rain Galaviz PA-C Unavailable Tavia Wyatt MD Unavailable Unavailable Erica Farrell ROLL CUTTING OPERATOR MOTION PICTURE SET GRIP Unavailable Rich Barrett MD Unavailable Neil Kent MD Unavailable ThangDiana [facility] Unavailable [phone] Livan Sharif MD Unavailable Catherine Cm MD Unavailable + Valery Veronica PA-C Unavailable [phone] Brea Quinn ROLL CUTTING OPERATOR MOTION PICTURE SET GRIP Unavailable Brea Quinn ROLL CUTTING OPERATOR MOTION PICTURE SET GRIP Unavailable [phone] Jose Francisco Johnson MD Unavailable Alfonso Renteria MD Unavailable + [phone] Esha Grimm PA-C Primary Care Provider [phone] Radha Lomeli ROLL CUTTING OPERATOR MOTION PICTURE SET GRIP Unavailable [phone] Jelena David OD Unavailable Esha Grimm PA-C Unavailable [phone] Valery Veronica PA-C Unavailable [phone] Rey Tay MD Unavailable Rocky Zepeda DO Unavailable Philip Dumont MD Unavailable Meredith Carrera PA-C Unavailable Neil Kent MD Unavailable Juan Pablo Emmanuel MD Unavailable Audrey Waite PA-C Unavailable Valery Veronica PA-C Unavailable [phone] Encounter Details Date Type Department Care Team (Late st Contact Info) Description 02/01/2024 MyC Medical Advice [facility] Neurology [address], [address] [place] [address] Macy Pinedo, RN Social History [...] Answer Date Recorded PHQ-2 Score 0 10/25/2023 [facility] of [facility]at [...] exercise at this level? 30 min 03/10/2023 [place] Depression Scale Answer Date Recorded [place] Depression Score 5 01/14/2021 Last EPDS Self [...] PM CDT Legal Sex Female 4:13 AM STORAGE GARAGE ATTENDANT Gender Identity Female 03/02/2021 5:45 PM CDT Sexual Orientation Straight 02/28/2020 12 :51 AM CDT documented as of this encounter Plan of Treatment Upcoming Encounters Date Type Department Care Team (Late st Contact Info) Description 05/31/2024 8:40 AM STORAGE GARAGE ATTENDANT Therapy Visit [facility] [address] [place] [phone] Ingris Thompson, PT [facility] [address] [place] [address] 163475 05/31/2024 3:30 PM STORAGE GARAGE ATTENDANT Office Visit [facility] [address] [phone] Audrey Díaz PA-C Khan, Waseem, MD [address] [place] [address] [phone] 06/04/2024 3:30 PM STORAGE GARAGE ATTENDANT Office Visit [address] [place] [phone] Jelena David, [place] [address] [place] [address] 06/11/2024 10:30 AM STORAGE GARAGE ATTENDANT Appointment [facility] Respiratory Therapy [address] [place] [phone] Spec, Nurse Only Med 06/18/2024 2:50 PM STORAGE GARAGE ATTENDANT Therapy Visit [facility] [address] [place] [phone] Ingris Thompson, PT [facility] 516 [facility] 106 [place], [place] 713[address] 06/21/2024 2:00 PM STORAGE GARAGE ATTENDANT Office Visit [facility] [place] [address] [facility], [address] [place] [phone] [place] [address] [place], [place] 441047 Johnny Penn MD 6559 [place], [place] 615515 06/25/2024 8:30 AM STORAGE GARAGE ATTENDANT Office Visit [address] [phone] Valery Veronica PA-C [address] [place] [address] 829895 11/28/2024 7:45 AM CDT Virtual Visit [facility] [address] 4th [place] [phone] Meredith Carrera PA-C [address] [place] [address] 902995 documented as of this encounter Visit Diagnoses Not on filedocumented in this encounter Additional Health Concerns Infection Onset Date Last Indicated Resolved Time Rule Out COVID-19 04/09/2024 04/09/2024 04/10/2024 6:48 PM CDT Assessment Noted Time PHQ-9 Depression Total Score: 4 06/20/20 23 8:40 AM STORAGE GARAGE ATTENDANT documented as of this encounter Care Teams In File Operator Relationship Specialty Start Date End Date Esah Grimm PA-C [address] [place] [address] PCP - General Family Medicine 05/04/23 Diana Desir, [facility] [address] [place] [address] Pharmacist Pharmacist 04/17/21 Rain Galaviz PA-C [address] [place] [address] [address] [place] [address] Physician Obstetrics Specialist Dermatology 04/28/21 Tavia Wyatt MD [address] [place] [address] [address] [place] [address] Dermatology 07/14/21 Erica Farrell APRN MOTION PICTURE SET GRIP [address] [facility] [address] [place] [address] Nurse Practitioner Cardiovascular Disease 09/09/21 Rich Barrett MD [address] 976865 Physician Ophthalmology 01/21/22 Neil Kent MD 500 [place], [place] [phone] Dermatology 02/24/22 Diana Desir, [facility] 3033 [place], [place] [phone] Assigned MTM Pharmacist 04/07/22 Livan Sharif MD [address] [place] 3714100 [place], [place] 974155 Cardiovascular Disease 05/14/22 Catherine Cm MD [address] 530595 Cardiovascular Disease 07/21/22 Valery Veronica, PAUcheC [address] [place] [address] [phone] Physician Obstetrics Specialist Dermatology 07/21/22 Brea Quinn APRN MOTION PICTURE SET GRIP [address] [place] [address] [phone] Nurse Practitioner Dermatology 09/21/22 Brea Quinn APRN MOTION PICTURE SET GRIP [address] [place] [address] 339262 Assigned Surgical Provider 10/09/22 05/01/24 [place] [address] [place] [address] [address] Assigned Musculoskeletal Provider 10/09/22 05/01/24 Alfonso Renteria MD [address] [address] Assigned Neuroscience Provider 04/02/23 Radha Lomeli APRN MOTION PICTURE SET GRIP 6[address] [facility] [address] [place] [address] Assigned Heart and Vascular Provider 05/28/23 [place] David OD [address] [facility] [address] [place] [id number] MD Ophthalmology 06/15/23 Esha Grimm PA-C [address] [place] [phone] Assigned PCP 07/16/23 Valery Veronica PA-C [address] [place] [address] 358115 Physician Obstetrics Specialist Dermatology 09/19/23 Rey Tay MD [address] [place] [address] 886695 Gastroenterology 09/20/23 Rokcy Zepeda DO [address] [place] [address] 533645 Physician Gastroenterology 09/20/23 Philip Dumont MD [address] [place] [address] 095915 Physician Ophthalmology 09/22/23 Meredith Carrera PA-C [address] [place] [address] Assigned Gastroenterology Provider 11/01/23 Neil Kent MD [address] [place] [address] Dermatology 11/02/23 [place] [address] [place] [email or web address] [place] [address] Neurological Surgery 12/26/23 Audrey Waite PA-C 500 [place] [address] Physician Obstetrics Specialist Dermatology 02/28/24 Valery Veronica PA-C 029295 [address], [place] [address] Physician Obstetrics Specialist Dermatology 04/10/24 documented as of this encounter
--- OUTSIDE RECORDS SUMMARY | 2024-05-27 08:48 | XMS_ITS | Encounter Summary ---
Author Organization [place] Address [address] [place] [address] Care Team Providers Care Oil And Gas Superintendent Name Role Phone Diana Desir [facility] Unavailable [phone] Rain Galaviz PA-C Unavailable Tavia Wyatt MD Unavailable Unavailable Erica Farrell CASK MAKER DESULFURIZER MACHINE Unavailable Rich Barrett MD Unavailable Neil Kent MD Unavailable ThangDiana [facility] Unavailable [phone] Livan Sharif MD Unavailable Catherine Cm MD Unavailable + Valery Veronica PA-C Unavailable [phone] Brea Quinn CASK MAKER DESULFURIZER MACHINE Unavailable Brea Quinn CASK MAKER DESULFURIZER MACHINE Unavailable Jose Francisco Johnson MD Unavailable Alfonso Renteria MD Unavailable + [phone] Esha Grimm PA-C Primary Care Provider [phone] Radha Lomeli CASK MAKER DESULFURIZER MACHINE Unavailable [phone] FrankieJelena OD Unavailable Pao Joseph RN Unavailable Unavailable Esha Grimm PA-C Unavailable [phone] Valery Veronica PA-C Unavailable Rey Tay MD Unavailable Rocky Zepeda DO Unavailable Philip Dumont MD Unavailable [phone] Meredith Carrera PA-C Unavailable [phone] Neil Kent MD Unavailable Juan Pablo Emmanuel MD Unavailable Audrey aWite PA-C Unavailable [phone] Valery Veronica PA-C Unavailable [phone] Encounter Details Date Type Department Care Team (Late st Contact Info) Description 09/01/2023 MyC Medical Advice [address] [address] Diana Desir, [facility] [address] [place], [place] [phone] Social History Tobacco Use Types Packs/Day Years [...] do you attend [facility] or sikh services? 1 to 4 times [...] 0 06/20/2023 [facility] of Occupat ional [...] exercise at this level? 30 min 03/10/2023 [place] Depression Scale Answer Date Recorded [place] Depression Score 5 01/14/2021 Last EPDS Self [...] PM CDT Legal Sex Female 4:13 AM SECOND MILLER Gender Identity Female 03/02/2021 5:45 PM CDT Sexual Orientation Straight 02/28/2020 12 :51 AM CDT documented as of this encounter Plan of Treatment Upcoming Encounters Date Type Department Care Team (Late st Contact Info) Description 05/31/2024 8:40 AM SECOND MILLER Therapy Visit [facility] Rehabilitation Services [address] [place] [phone] Ingris Thompson, PT [facility] [address] [place] [address] 106 [place] [address] 05/31/2024 3:30 PM SECOND MILLER Office Visit [facility] [place] [address] [place] [phone] Audrey Díaz PA-C Khan, Waseem, MD [address] [place] [address] [phone] 06/04/2024 3:30 PM SECOND MILLER [facility] [place] [address] [facility] [address] [place] [phone] Jelena David, OD 3305 [facility] [place] [address] 06/11/2024 10:30 AM SECOND MILLER Appointment [facility] Respiratory Therapy [address] [place] [phone] Spec, Nurse Only Med 06/18/2024 2:50 PM SECOND MILLER Therapy Visit [facility] Services [address] [place] [phone] Ingris Thompson, PT [facility] 516 [facility] 106 [place], [place] 914375 06/21/2024 2:00 PM SECOND MILLER Office Visit [facility] Neurology [facility] - [place] [address] [place] [address], [address] [place] [address] [place] [address] [place], [place] 8[address] Johnny Penn MD 6545 [place], [place] 490205 06/25/2024 8:30 AM SECOND MILLER Office Visit [address] [phone] Valery Veronica, PA-C [address] [place] [address] 11/28/2024 7:45 AM CDT Virtual Visit [facility] Gastroenterology [address] 4th [place] [phone] Meredith Carrera PA-C 909 [place] [address] documented as of this encounter Visit Diagnoses Not on filedocumented in this encounter Additional Health Concerns Infection Onset Date Last Indicated Resolved Time Rule Out COVID-19 12/26/2023 12/26/2023 12/26/2023 9:50 AM CDT Rule Out COVID-19 04/09/2024 04/09/2024 04/10/2024 6:48 PM CDT Assessment Noted Time PHQ-9 Depression Total Score: 4 06/20/20 23 8:40 AM SECOND MILLER documented as of this encounter Care Teams Oil And Gas Superintendent Relationship Specialty Start Date End Date Esha Grimm PA-C [address] [place] [address] PCP - General Family Medicine 05/04/23 [facility] 3033 [place] [address] Pharmacist Pharmacist 04/17/21 Rain Galaviz PA-C [address] [place] [address] [address] [place] [address] Physician Head Rose Grower Dermatology 04/28/21 Tavia Wyatt MD [address] [place] [address] [address] [place] [address] Dermatology 07/14/21 Erica Farrell APRN DESULFURIZER MACHINE 6405 [facility] [address] [place] [address] Nurse Practitioner Cardiovascular Disease 09/09/21 Rich Barrett MD [address] 462715 Physician Ophthalmology 01/21/22 Neil Kent MD 500 [place], [place] 357115 Dermatology 02/24/22 Diana Desir, [facility] 3033 [place], [place] 840776 Assigned MTM Pharmacist 04/07/22 Livan Sharif MD [address] [facility] [place] 251865 Cardiovascular Disease 05/14/22 Catherine Cm MD [address] [facility] [place] 325695 Cardiovascular Disease 07/21/22 Valery Veronica, PA-C 9 [place], [place] 652755 Physician Head Rose Grower Dermatology 07/21/22 Brea Quinn APRN DESULFURIZER MACHINE 500 [place] [address] Nurse Practitioner Dermatology 09/21/22 Brea Quinn APRN DESULFURIZER MACHINE [address] [place], [place] [address] [facility] [place] 016[place] Assigned Surgical Provider 10/09/22 05/01/24 [place] [address] [place] [address] 805147 Assigned Musculoskeletal Provider 10/09/22 05/01/24 Alfonso Renteria MD [address] [facility] [address] 200 [place] [address] Assigned Neuroscience Provider 04/02/23 Radha Lomeli APRN DESULFURIZER MACHINE 6405 [facility] [address] [place] [address] Assigned Heart and Vascular Provider 05/28/23 Jelena David OD [address] [facility] [place] [address] Ophthalmology 06/15/23 Pao Joseph, VJ Personal Advocate & Liaison (PAL) Nurse 08/01/23 11/07/23 Esha Grimm PA-C [address] [place] [phone] Assigned PCP 07/16/23 Valery Veronica PA-C [address] [place] [address] 204115 Physician Head Rose Grower Dermatology 09/19/23 Rey Tay MD [address] [place] [address] 658165 Gastroenterology 09/20/23 Rocky Zepeda DO [address] [place] [address] 045195 Physician Gastroenterology 09/20/23 Philip Dumont MD [address] [place] [address] 319645 Physician Ophthalmology 09/22/23 Meredith Carrera PA-C [address] [place] [address] Assigned Gastroenterology Provider 11/01/23 Neil Kent MD [address] [address] Dermatology 11/02/23 [place] [address] [place] [address] 589367 Neurological Surgery 12/26/23 Audrey Waite PA-C [address] [place] [address] Physician Head Rose Grower Dermatology 02/28/24 Valery Veronica PA-C 128577 [address], [place] [address] Physician Head Rose Grower Dermatology 04/10/24 documented as of this encounter
--- OUTSIDE RECORDS SUMMARY | 2024-05-27 08:48 | XMS_ITS | Encounter Summary ---
Author Organization [facility] Address [address] [place] [address] Care Team Providers Care Document Design Specialist Name Role Phone Diana Desir [facility] Unavailable Rain Galaviz PA-C Unavailable Tavia Wyatt MD Unavailable Unavailable Erica Farrell VALIDATION MANAGER RETAIL GREETING CARD MERCHANDISER Unavailable Rich Barrett MD Unavailable Neil Kent MD Unavailable ThangDiana [facility] Unavailable [phone] Livan Sharif MD Unavailable Catherine Cm MD Unavailable + Valery Veronica PA-C Unavailable [phone] Brea Quinn VALIDATION MANAGER RETAIL GREETING CARD MERCHANDISER Unavailable Brea Quinn VALIDATION MANAGER RETAIL GREETING CARD MERCHANDISER Unavailable Jose Francisco Johnson MD Unavailable Alfonso Renteria MD Unavailable + [phone] Esha Grimm PA-C Primary Care Provider Radha Lomeli VALIDATION MANAGER RETAIL GREETING CARD MERCHANDISER Unavailable [phone] Jelena David OD Unavailable Pao Joseph RN Unavailable Unavailable [facility] [place] PA-C Unavailable [phone] Valery Veronica PA-C Unavailable Rey Tay MD Unavailable Rocky Zepeda DO Unavailable Philip Dumont MD Unavailable [phone] Meredith Carrera PA-C Unavailable [phone] Neil Kent MD Unavailable Juan Pablo Emmanuel MD Unavailable Audrey Waite PA-C Unavailable [phone] Valery Veronica PA-C Unavailable Encounter Details Date Type Department Care Team (Late st Contact Info) Description 09/20/2023 MyC Medical Advice [facility] Gastroenterology Clinic [address]th [place] [address] Jeffery Vieira, RN Social History [...] often do you attend chur ch or restoration services? 1 to 4 times [...] Answer Date Recorded PHQ-2 Score 0 06/20/2023 [facility] of Occupat ional [...] PM CDT Legal Sex Female 4:13 AM STAGECRAFT PROFESSOR Gender Identity Female 03/02/2021 5:45 PM CDT Sexual Orientation Straight 02/28/2020 12 :51 AM CDT documented as of this encounter Plan of Treatment Upcoming Encounters Date Type Department Care Team (Late st Contact Info) Description 05/31/2024 8:40 AM STAGECRAFT PROFESSOR Therapy Visit [facility] Rehabilitation Services [address] [place] [phone] Ingris Thompson, PT [facility] [address] [place] [address] 05/31/2024 3:30 PM STAGECRAFT PROFESSOR Office Visit [facility] Specialty Clinic [address] [phone] Audrey Díaz, Herminia Koo MD [address] [place] [address] [phone] 06/04/2024 3:30 PM STAGECRAFT PROFESSOR Office Visit [address] [place] [phone] Frankie Jelenamao Garcia, OD [address] [facility] [place] [address] 06/11/2024 10:30 AM STAGECRAFT PROFESSOR Appointment [facility] Respiratory Therapy [address] [place] [address] Spec, Nurse Only Med 06/18/2024 2:50 PM STAGECRAFT PROFESSOR Therapy Visit [facility] Rehabilitation Services [place] [address] [facility] [address] [place] [phone] Ingris Thompson, PT [facility] [address] [facility] 106 [place], [place] 444855 06/21/2024 2:00 PM STAGECRAFT PROFESSOR Office Visit [facility] Neurology [facility] [address] [place] [address] [address] [place] [phone] [place] [address] [place], [place] 901367 Johnny Penn MD 3111 [place], [place] 584885 06/25/2024 8:30 AM STAGECRAFT PROFESSOR Office Visit [address] [phone] Valery Veronica PA-C [address] [place] [address] 687555 11/28/2024 7:45 AM CDT Virtual Visit [facility] Gastroenterology [address] 4th [place] [phone] Meredith Carrera PA-C [address] [place] [address] [phone] documented as of this encounter Visit Diagnoses Not on filedocumented in this encounter Additional Health Concerns Infection Onset Date Last Indicated Resolved Time Rule Out COVID-19 12/26/2023 12/26/2023 12/26/2023 9:50 AM CDT Rule Out COVID-19 04/09/2024 04/09/2024 04/10/2024 6:48 PM CDT Assessment Noted Time PHQ-9 Depression Total Score: 4 06/20/20 23 8:40 AM STAGECRAFT PROFESSOR documented as of this encounter Care Teams Document Design Specialist Relationship Specialty Start Date End Date Esha Grimm PA-C [address] [place] [phone] PCP - General Family Medicine 05/04/23 Diana Desir, [facility] [address] [place], [place] 067536 Pharmacist Pharmacist 04/17/21 Rain Galaviz PA-C [address] [place] [address] [address] [place] [address] [facility] Dermatology 04/28/21 Tavia Wyatt MD [address] [place] [address] [address] [place] [place] [address] Dermatology 07/14/21 Erica Farrell APRN RETAIL GREETING CARD MERCHANDISER [address] [facility] [address] [place] 068315 Nurse Practitioner Cardiovascular Disease 09/09/21 Rich Barrett MD 516 [facility] 9A [place], [place] 266435 Physician Ophthalmology 01/21/22 Neil Kent MD 500 [place] [address] Dermatology 02/24/22 Diaan Desir, [facility] 3033 [place] [address] Assigned MTM Pharmacist 04/07/22 Livan Sharif MD [address] [facility]00 [place] 13[address]45 Cardiovascular Disease 05/14/22 Catherine Cm MD [address] [place] [address] [place] 559595 Cardiovascular Disease 07/21/22 Valery Veronica, PAUcheC 909 [place], [place] 792875 [facility] [place] [facility] Dermatology 07/21/22 Brea Quinn APRN RETAIL GREETING CARD MERCHANDISER 500 [place] [address] Nurse Practitioner Dermatology 09/21/22 Brea Quinn APRN RETAIL GREETING CARD MERCHANDISER 6401 [place] [address] Assigned Surgical Provider 10/09/22 05/01/24 [place] [address] [place] [address] Assigned Musculoskeletal Provider 10/09/22 05/01/24 Alfonso Renteria MD [address] [facility] [address] 200 [place] [address] Assigned Neuroscience Provider 04/02/23 Radha Lomeli APRN RETAIL GREETING CARD MERCHANDISER 6[address] [facility] [address] [place], [place] 239575 Assigned Heart and Vascular Provider 05/28/23 Jelena David OD [address] [facility] [place] [address] Ophthalmology 06/15/23 Pao Joseph, VJ Personal Advocate & Liaison (PAL) Nurse 08/01/23 11/07/23 Esha Grimm PA-C [address] [place] [phone] Assigned PCP 07/16/23 Valery Veronica PA-C [address] [place] [address] 170925 [facility] Dermatology 09/19/23 Rey Tay MD [address] [place] [address] [phone] Gastroenterology 09/20/23 Rocky Zepeda DO [address] [place] [address] 841885 Physician Gastroenterology 09/20/23 Philip Dumont MD [address] [place] [address] 506805 Physician Ophthalmology 09/22/23 Meredith Carrera PA-C 909 [place] [address] Assigned Gastroenterology Provider 11/01/23 Neil Kent MD [address] [place] [address] Dermatology 11/02/23 [place] [address] [address] Neurological Surgery 12/26/23 Audrey [place] PA-C 500 [place] [address] [facility] Dermatology 02/28/24 Valery Veronica PA-C [address] [place] [address] [facility] Dermatology 04/10/24 documented as of this encounter
--- OUTSIDE RECORDS SUMMARY | 2024-05-27 08:48 | XMS_ITS | Encounter Summary ---
Author Organization [facility] Address [address] [place] [address] Care Team Providers Care Corporation Officer Name Role Phone Diana Desir [facility] Unavailable Rain Galaviz PA-C Unavailable Tavia Wyatt MD Unavailable Unavailable Erica Farrell WIRE WEAVER HELPER TEXTILE DESIGNER Unavailable Rich Barrett MD Unavailable Neil Kent MD Unavailable ThangDiana [facility] Unavailable [phone] Livan Sharif MD Unavailable Catherine Cm MD Unavailable + Valery Veronica PA-C Unavailable [phone] Brea Quinn WIRE WEAVER HELPER TEXTILE DESIGNER Unavailable Brea Quinn WIRE WEAVER HELPER TEXTILE DESIGNER Unavailable [phone] Jose Francisco Johnson MD Unavailable Alfonso Renteria MD Unavailable + [phone] Esha Grimm PA-C Primary Care Provider Radha Lomeli WIRE WEAVER HELPER TEXTILE DESIGNER Unavailable [phone] Jelena David OD Unavailable Pao Joseph RN Unavailable Unavailable Esha Grimm PA-C Unavailable [phone] Valery Veronica PA-C Unavailable Rey Tay MD Unavailable Rocky Zepeda DO Unavailable Philip Dumont MD Unavailable Meredith Carrera PA-C Unavailable Neil Kent MD Unavailable Juan Pablo Emmanuel MD Unavailable Audrey Waite PA-C Unavailable [phone] Valery Veronica PA-C Unavailable [phone] Reason for Visit * Reason Onset Date Comments Call Back 08/01/2023 Encounter Details Date Type Department Care Team (Late st Contact Info) Description 08/01/2023 Telephone [facility] [id number] [place] [address] Esha Grimm PAUcheC [address] [place] [address] Call Back Social History Tobacco [...] do you attend [facility] or hoahaoism services? 1 to 4 [...] Answer Date Recorded PHQ-2 Score 0 06/20/2023 [facility] of Occupat ional Health [...] exercise at this level? 30 min 03/10/2023 Marcellus Depression Scale Answer Date Recorded Marcellus Depression Score 5 01/14/2021 Last EPDS Self [...] PM CDT Legal Sex Female 4:13 AM TICKET SCHEDULER Gender Identity Female 03/02/2021 5:45 PM CDT Sexual Orientation Straight 02/28/2020 12 :51 AM CDT documented as of this encounter Miscellaneous Notes * Telephone Encounter - Esha Grimm PA-C - 08/02/2023 7:49 AM CST See telephone encounter. Seen by [facility] who reviewed imaging and note fracture. Custom wrap made for the patient. Esha Grimm PA-C on 08/02/2023 at 7:49 AM ET SCHEDULER * Telephone Encounter - Debbie Shahid - [...] we send this information to you in MyChart or would you prefer to receive a phone call?: No preference Okay to leave a detailed message?: Yes at Home number on file [phone] (home) ET SCHEDULER documented in this encounter Plan of Treatment Upcoming Encounters Date Type Department Care Team (Late st Contact Info) Description 05/31/2024 8:40 AM TICKET SCHEDULER Therapy Visit [address] [phone] Ingris Thompson, PT [facility] [address] [place] [address] [phone] 05/31/2024 3:30 PM TICKET SCHEDULER Office [facility] Specialty [address] [address] Audrey Díaz, Herminia Koo MD [address] [place] [address] 06/04/2024 3:30 PM TICKET SCHEDULER Office Visit [facility] [address] [place] [address] [address] [place] [phone] Jelena David, SONJA [address] [place] [address] [place] [address] 06/11/2024 10:30 AM TICKET SCHEDULER Appointment [facility] Respiratory Therapy [address] [place] [address] Spec, Nurse Only Med 06/18/2024 2:50 PM TICKET SCHEDULER Therapy Visit [address] [phone] Ingris Thompson, PT [facility] 516 [facility] 106 [place] [address] 06/21/2024 2:00 PM TICKET SCHEDULER Office Visit [facility] [place] [address] [facility], [address] [place] [phone] [place] [address] [place] [address] [place] [address] Johnny Penn MD [address] [place] 148175 06/25/2024 8:30 AM TICKET SCHEDULER Office Visit [address] [phone] Valery Veronica PAUcheC [address] [place] [address] 11/28/2024 7:45 AM CDT Virtual Visit [facility] Gastroenterology Clinic [address] 4th [place] [phone] Meredith Carrera, PAUcheC [address] [place] [address] 106395 documented as of this encounter Visit Diagnoses Not on filedocumented in this encounter Additional Health Concerns Infection Onset Date Last Indicated Resolved Time Rule Out COVID-19 12/26/2023 12/26/2023 12/26/2023 9:50 AM CDT Rule Out COVID-19 04/09/2024 04/09/2024 04/10/2024 6:48 PM CDT Assessment Noted Time PHQ-9 Depression Total Score: 4 06/20/20 8:40 AM TICKET SCHEDULER documented as of this encounter Care Teams Corporation Officer Relationship Specialty Start Date End Date Esha Grimm PA-C [address] [facility] [place] [address] PCP - General Family Medicine 05/04/23 Diana Desir, [facility] 3033 [place] [address] Pharmacist Pharmacist 04/17/21 Rain Galaviz PA-C [address] [place] [address] [address] [facility] [place] [address] Physician Mechanics Supervisor Dermatology 04/28/21 Tavia Wyatt MD [address] [place] [address] [address] [place] [address] Dermatology 07/14/21 Erica Farrell APRN TEXTILE DESIGNER [address] [facility] [address] [place], [place] 252835 Nurse Practitioner Cardiovascular Disease 09/09/21 Rich Barrett MD [address] [facility] 9A [place], [place] 459765 Physician Ophthalmology 01/21/22 Neil Kent MD 500 [place], [place] 749155 Dermatology 02/24/22 Diana Desir, [facility] 3033 [place] [address] Assigned MTM Pharmacist 04/07/22 Livan Sharif MD [address], [facility] [address] [place] [address] Cardiovascular Disease 05/14/22 Catherine Cm MD [address] [facility] [address] [place] [address] Cardiovascular Disease 07/21/22 Valery Veronica, PA-C 909 [place] [address] Physician Mechanics Supervisor Dermatology 07/21/22 Brea Quinn APRN TEXTILE DESIGNER [address] [place] [address] Nurse Practitioner Dermatology 09/21/22 Brea Quinn APRN TEXTILE DESIGNER 6401 [place] [address] Assigned Surgical Provider 10/09/22 05/01/24 [place] [address] [place] [facility] 300 [place] [address] Assigned Musculoskeletal Provider 10/09/22 05/01/24 Alfonso Renteria MD [address] [facility] 200 [place], [place] 118766 Assigned Neuroscience Provider 04/02/23 Radha Lomeli APRN TEXTILE DESIGNER [address] [place] [address] Assigned Heart and Vascular Provider 05/28/23 Jelena David OD [address] [facility] [place] [address] Ophthalmology 06/15/23 Pao Joseph, RN Personal Advocate & Liaison (PAL) Nurse 08/01/23 11/07/23 Esha Grimm PA-C [address] [place] [phone] Assigned PCP 07/16/23 Valery Veronica PA-C [address] [place] [address] 414015 Physician Mechanics Supervisor Dermatology 09/19/23 Rey Tay MD [address] [place] [address] 918505 MD Gastroenterology 09/20/23 Rocky Zepeda DO [address] [place] [address] 564675 Physician Gastroenterology 09/20/23 Philip Dumont MD [address] [place] [address] 672565 Physician Ophthalmology 09/22/23 Meredith Carrera PA-C [address] [place] [address] 060125 Assigned Gastroenterology Provider 11/01/23 Neil Kent MD [address] [address] Dermatology 11/02/23 [place] [address] [place] [address] Neurological Surgery 12/26/23 Audrey Waite PA-C 500 [place] [address] Physician Mechanics Supervisor Dermatology 02/28/24 Valery Veronica PA-C [address] [place] [address] Physician Mechanics Supervisor Dermatology 04/10/24 documented as of this encounter
--- OUTSIDE RECORDS SUMMARY | 2024-05-27 08:48 | XMS_ITS | Encounter Summary ---
Author Organization [facility] Address [address] [place] [address] Care Team Providers Care Ship'S Master Name Role Phone Diana Desir [facility] Unavailable Rain Galaviz PA-C Unavailable Tavia Wyatt MD Unavailable Unavailable Erica Farrell BATHHOUSE ATTENDANT ELECTRICIAN Unavailable Rich Barrett MD Unavailable Neil Kent MD Unavailable ThangDiana [facility] Unavailable [phone] Livan Sharif MD Unavailable Catherine Cm MD Unavailable + Valery Veronica PA-C Unavailable [phone] Brea Quinn BATHHOUSE ATTENDANT ELECTRICIAN Unavailable Brea Quinn BATHHOUSE ATTENDANT ELECTRICIAN Unavailable Jose Francisco Johnson MD Unavailable Alfonso Renteria MD Unavailable + [phone] Esha Grimm PA-C Primary Care Provider Radha Lomeli BATHHOUSE ATTENDANT ELECTRICIAN Unavailable [phone] Jelena David OD Unavailable Pao Joseph RN Unavailable Unavailable [facility] [place] PA-C Unavailable Valery Veronica PA-C Unavailable Rey Tay MD Unavailable Rocky Zepeda DO Unavailable Philip Dumont MD Unavailable [phone] Meredith Carrera PA-C Unavailable Neil eKnt MD Unavailable Juan Pablo Emmanuel MD Unavailable Audrey Waite PA-C Unavailable [phone] Valery Veronica PA-C Unavailable Encounter Details Date Type Department Care Team (Late st Contact Info) Description 08/31/2023 MyC Medical Advice [facility] [address] [facility] [address] [place] [address] Amalia Reyes RN Social History [...] exercise at this level? 30 min 03/10/2023 Buckhorn Depression Scale Answer Date Recorded Buckhorn Depression Score 5 01/14/2021 Last EPDS Self [...] PM CDT Legal Sex Female 4:13 AM VOCATIONAL TRAINING DIRECTOR Gender Identity Female 03/02/2021 5:45 PM CDT Sexual Orientation Straight 02/28/2020 12 :51 AM CDT documented as of this encounter Plan of Treatment Upcoming Encounters Date Type Department Care Team (Late st Contact Info) Description 05/31/2024 8:40 AM VOCATIONAL TRAINING DIRECTOR Therapy Visit [facility] Rehabilitation Services [address] [place] [phone] Ingris Thompson, PT [facility] [address] [place] [address] 05/31/2024 3:30 PM VOCATIONAL TRAINING DIRECTOR Office Visit [facility] Specialty Clinic [address] [phone] Audrey Díaz, Herminia Koo MD [address] [place] [address] [phone] 06/04/2024 3:30 PM VOCATIONAL TRAINING DIRECTOR Office Visit [address] [place] [phone] Jelena David, OD [address] [facility] [place] [address] 06/11/2024 10:30 AM VOCATIONAL TRAINING DIRECTOR Appointment [facility] Respiratory Therapy [address] [place] [phone] Spec, Nurse Only Med 06/18/2024 2:50 PM VOCATIONAL TRAINING DIRECTOR Therapy Visit [facility] Rehabilitation Services [place] [address] [place] [address] [address] [place] [phone] Ingris Thompson, PT [facility] 516 [facility] 106 [place], [place] 844395 06/21/2024 2:00 PM VOCATIONAL TRAINING DIRECTOR Office Visit [facility] Neurology [facility] [address] [place] [address], [address] [place] [phone] [place] [address] [place], [place] 483[address] Johnny Penn MD 7340 [place] [address] 06/25/2024 8:30 AM VOCATIONAL TRAINING DIRECTOR Office Visit [address] [phone] Valery Veronica PA-C [address] [place] [address] 862945 11/28/2024 7:45 AM CDT Virtual Visit [facility] Gastroenterology Clinic [address] 4th [place] [phone] Meredith Carrera PA-C [address] [place] [address] [phone] documented as of this encounter Visit Diagnoses Not on filedocumented in this encounter Additional Health Concerns Infection Onset Date Last Indicated Resolved Time Rule Out COVID-19 12/26/2023 12/26/2023 12/26/2023 9:50 AM CDT Rule Out COVID-19 04/09/2024 04/09/2024 04/10/2024 6:48 PM CDT Assessment Noted Time PHQ-9 Depression Total Score: 4 06/20/20 23 8:40 AM VOCATIONAL TRAINING DIRECTOR documented as of this encounter Care Teams Ship'S Master Relationship Specialty Start Date End Date Esha Grimm PA-C [address] [place] [address] PCP - General Family Medicine 05/04/23 Diana Desir, [facility] [address] [place], [place] [address] Pharmacist Pharmacist 04/17/21 Rain Galaviz PA-C [address] [place] [address] [address] [place] [address] Physician External Auditor Dermatology 04/28/21 Tavia Wyatt MD [address] [place] [address] [address] [place] [address] Dermatology 07/14/21 Erica Farrell APRN ELECTRICIAN 6405 [facility] [address] [place], [place] 6[address] Nurse Practitioner Cardiovascular Disease 09/09/21 Rich Barrett MD 516 [facility] 9A [place], [place] 00[address]15 Physician Ophthalmology 01/21/22 Neil Kent MD 500 [place] [address] Dermatology 02/24/22 Diana Desir, [facility] 3033 [place] [address] Assigned [place] Pharmacist 04/07/22 Livan Sharif MD [address] [facility]00 [place] [address] Cardiovascular Disease 05/14/22 Catherine Cm MD [address] [place] 234[address] Cardiovascular Disease 07/21/22 Valery Veronica, PA-C 909 [place] [address] Physician External Auditor Dermatology 07/21/22 Brea Quinn APRN ELECTRICIAN 500 [place] [address] Nurse Practitioner Dermatology 09/21/22 Brea Quinn APRN ELECTRICIAN 6401 [place] [address] Assigned Surgical Provider 10/09/22 05/01/24 [place] [address] [place] [address] Assigned Musculoskeletal Provider 10/09/22 05/01/24 Alfonso Renteria MD [address] [place], [place] 182796 Assigned Neuroscience Provider 04/02/23 Lomeli Radha ARLENE Stovall ELECTRICIAN [address] [place], [place] 578515 Assigned Heart and Vascular Provider 05/28/23 Jelena David OD [address] [facility] [place] [address] Ophthalmology 06/15/23 Pao Joseph, VJ Personal Advocate & Liaison (PAL) Nurse 08/01/23 11/07/23 Esha Grimm PA-C [address] [place] [phone] Assigned PCP 07/16/23 Valery Veronica PA-C [address] [place] [address] 601155 Physician External Auditor Dermatology 09/19/23 Rey Tay MD [address] [place] [address] [phone] Gastroenterology 09/20/23 Rocky Zepeda DO [address] [place] [address] 664605 Physician Gastroenterology 09/20/23 Philip Dumont MD [address] [place] [address] 580605 Physician Ophthalmology 09/22/23 Meredith Carrera PA-C 909 [place] [address] Assigned Gastroenterology Provider 11/01/23 Neil Kent MD [address] [place] [address] Dermatology 11/02/23 [place] [address] [place] [address] Neurological Surgery 12/26/23 Audrey Waite PA-C 500 [place] [address] Physician External Auditor Dermatology 02/28/24 Valery Veronica PA-C [address] [place] [address] Physician External Auditor Dermatology 04/10/24 documented as of this encounter
--- OUTSIDE RECORDS SUMMARY | 2024-05-27 08:48 | XMS_ITS | Encounter Summary ---
Author Organization [facility] Address [address] [place] [address] Care Team Providers Care House Sitter Name Role Phone Diana Desir [facility] Unavailable Rain Galaviz PA-C Unavailable Tavia Wyatt MD Unavailable Unavailable Erica Farrell BOAT BUILDER CREDENTIALING MANAGER Unavailable Rich Barrett MD Unavailable Neil Kent MD Unavailable ThangDiana [facility] Unavailable [phone] Livan Sharif MD Unavailable Catherine Cm MD Unavailable + Valery Veronica PA-C Unavailable [phone] Brea Quinn BOAT BUILDER CREDENTIALING MANAGER Unavailable Brea Quinn BOAT BUILDER CREDENTIALING MANAGER Unavailable Jose Francisco Johnson MD Unavailable Alfonso Renteria MD Unavailable + [phone] Esha Grimm PA-C Primary Care Provider Radha Lomeli BOAT BUILDER CREDENTIALING MANAGER Unavailable [phone] FrankieJelena OD Unavailable [phone] Pao Joseph RN Unavailable Unavailable Esha Grimm PA-C Unavailable [phone] Valery Veronica PA-C Unavailable Rey Tay MD Unavailable Rocky Zepeda DO Unavailable Philip Dumont MD Unavailable [phone] Meredith Carrera PA-C Unavailable Neil Kent MD Unavailable Juan Pablo Emmanuel MD Unavailable Audrey Waite PA-C Unavailable [phone] Valery Veronica PA-C Unavailable Encounter Details Date Type Department Care Team (Late st Contact Info) Description 09/08/2023 MyC Medical Advice [facility] Gastroenterology Clinic [address]th [place] [address] Mary Kelsey Social History Tobacco [...] Answer Date Recorded PHQ-2 Score 0 06/20/2023 [facility] - Occupational Stress Questionnaire Answer Date [...] exercise at this level? 30 min 03/10/2023 [place] Depression Scale Answer Date Recorded [place] Depression Score 5 01/14/2021 Last EPDS Self [...] PM CDT Legal Sex Female 4:13 AM CAMP ASSISTANT Gender Identity Female 03/02/2021 5:45 PM CDT Sexual Orientation Straight 02/28/2020 12 :51 AM CDT documented as of this encounter Plan of Treatment Upcoming Encounters Date Type Department Care Team (Late st Contact Info) Description 05/31/2024 8:40 AM CAMP ASSISTANT Therapy Visit [facility] Rehabilitation Services [address] [place] [phone] Ingris Thompson, PT [facility] [address] [place] [address] 05/31/2024 3:30 PM CAMP ASSISTANT Office Visit [facility] Specialty [facility] [address] [phone] Audrey Díaz, Herminia Koo MD [address] [place] [address] [phone] 06/04/2024 3:30 PM CAMP ASSISTANT Office Visit [address] [place] [phone] Jelena David, OD [address] [facility] [place] [address] 06/11/2024 10:30 AM CAMP ASSISTANT Appointment [facility] Respiratory Therapy [address] [place] [address] Spec, Nurse Only Med 06/18/2024 2:50 PM CAMP ASSISTANT Therapy Visit [facility] Rehabilitation Services [place] [address] [place] [address] [address] [place] [phone] Ingris Thompson, PT [facility] [address] [facility] 106 [place], [place] [address]355 06/21/2024 2:00 PM CAMP ASSISTANT Office Visit [facility] Neurology Clinics - [place] [address] [place] [address], [address] [place] [address] [place] [address] [place], [place] [address] Johnny Penn MD 9045 [place] [address] 06/25/2024 8:30 AM CAMP ASSISTANT Office Visit [address] [phone] Valery Veornica PA-C [address] [place] [address] 118195 11/28/2024 7:45 AM CDT Virtual Visit [facility] Gastroenterology [address] 4th [place] [phone] Meredith Carrera PA-C [address] [place] [address] [phone] documented as of this encounter Visit Diagnoses Not on filedocumented in this encounter Additional Health Concerns Infection Onset Date Last Indicated Resolved Time Rule Out COVID-19 12/26/2023 12/26/2023 12/26/2023 9:50 AM CDT Rule Out COVID-19 04/09/2024 04/09/2024 04/10/2024 6:48 PM CDT Assessment Noted Time PHQ-9 Depression Total Score: 4 06/20/20 23 8:40 AM CAMP ASSISTANT documented as of this encounter Care Teams House Sitter Relationship Specialty Start Date End Date Esha Grimm PA-C [address] [place] [phone] PCP - General Family Medicine 05/04/23 Diana Desir, [facility] [address] [place], [place] [address] Pharmacist Pharmacist 04/17/21 Rain Galaviz PA-C [address] [place] [address] [address] [place] [address] Physician Contact Lens Fitter Dermatology 04/28/21 Tavia Wyatt MD [address] [place] [address] [address] [place] [address] Dermatology 07/14/21 Erica Farrell APRN CREDENTIALING MANAGER 6405 [facility] [address] [place] 292815 Nurse Practitioner Cardiovascular Disease 09/09/21 Rich Barrett MD 516 [facility] 9A [place], [place] [address] Physician Ophthalmology 01/21/22 Neil Kent MD 500 [place] [address] Dermatology 02/24/22 Diana Desir, [facility] 3033 [place] [address] Assigned [place] Pharmacist 04/07/22 Livan Sharif MD [address] [facility] [place], [place] 545385 Cardiovascular Disease 05/14/22 Catherine Cm MD [address] [place] [address] [place] [id number] Cardiovascular Disease 07/21/22 Valery Veronica, PA-C 909 [place] [address] Physician Contact Lens Fitter Dermatology 07/21/22 Brea Quinn APRN CREDENTIALING MANAGER 500 [place] [address] Nurse Practitioner Dermatology 09/21/22 Brea Quinn APRN CREDENTIALING MANAGER 6401 [place] [address] Assigned Surgical Provider 10/09/22 05/01/24 [place] [address] [place] [address] Assigned Musculoskeletal Provider 10/09/22 05/01/24 Alfonso Renteria MD [address] [place] [address] Assigned Neuroscience Provider 04/02/23 Lomeli Radha StovallARLENE CREDENTIALING MANAGER [address] [place], [place] 585525 Assigned Heart and Vascular Provider 05/28/23 J[place]ena David OD [address] [facility] [place] [address] Ophthalmology 06/15/23 Pao Joseph, VJ Personal Advocate & Liaison (PAL) Nurse 08/01/23 11/07/23 Esha Grimm PA-C [address] [place] [phone] Assigned PCP 07/16/23 Valery Veronica PA-C [address] [place] [address] 315625 Physician Contact Lens Fitter Dermatology 09/19/23 Rey Tay MD [address] [place] [address] 081215 Gastroenterology 09/20/23 Rocky Zepeda DO [address] [place] [address] 550845 Physician Gastroenterology 09/20/23 Philip Dumont MD [address] [place] [address] 158885 Physician Ophthalmology 09/22/23 Meredith Carrera PA-C 909 [place] [address] Assigned Gastroenterology Provider 11/01/23 Neil [place] MD [address] [place] [address] Dermatology 11/02/23 [place] [address] [address] [address] Neurological Surgery 12/26/23 Audrey Waite PA-C 500 [place] [address] Physician Contact Lens Fitter Dermatology 02/28/24 Valery Veronica PA-C [address] [place] [address] Physician Contact Lens Fitter Dermatology 04/10/24 documented as of this encounter
--- OUTSIDE RECORDS SUMMARY | 2024-05-27 08:48 | XMS_ITS | Encounter Summary ---
Author Organization [facility] Address [address] [place] [address] Care Team Providers Care Senior Licensing Manager Name Role Phone Diana Desir [facility] Unavailable Rain Galaviz PA-C Unavailable Tavia Wyatt MD Unavailable Unavailable Erica Farrell CONFECTIONERY DROPS MACHINE OPERATOR SHEETMETAL WORKER Unavailable Rich Barrett MD Unavailable Neil Kent MD Unavailable ThangDiana [facility] Unavailable [phone] Livan Sharif MD Unavailable Catherine Cm MD Unavailable + Valery Veronica PA-C Unavailable [phone] Brea Quinn CONFECTIONERY DROPS MACHINE OPERATOR SHEETMETAL WORKER Unavailable Brea Quinn CONFECTIONERY DROPS MACHINE OPERATOR SHEETMETAL WORKER Unavailable Jose Francisco Johnson MD Unavailable Alfonso Renteria MD Unavailable + [phone] Esha Grimm PA-C Primary Care Provider Radha Lomeli CONFECTIONERY DROPS MACHINE OPERATOR SHEETMETAL WORKER Unavailable [phone] FrankieJelena OD Unavailable [phone] Pao Joseph RN Unavailable Unavailable Esha Grimm PA-C Unavailable [phone] Valery Veronica PA-C Unavailable Rey Tay MD Unavailable Rocky Zepeda DO Unavailable Philip Dumont MD Unavailable Meredith Carrera PA-C Unavailable Neil Kent MD Unavailable Juan Pablo Emmanuel MD Unavailable Audrey Waite PA-C Unavailable [phone] Valery Veronica PA-C Unavailable [phone] Encounter Details Date Type Department Care Team (Late st Contact Info) Description 08/04/2023 MyC Medical Advice [address] [address] Diana Desir, [facility] 3033 [place], [place] [phone] Social History Tobacco Use Types Packs/Day Years [...] you attend [facility] or latter day services? 1 to [...] PM CDT Legal Sex Female 4:13 AM FITNESS WORKER Gender Identity Female 03/02/2021 5:45 PM CDT Sexual Orientation Straight 02/28/2020 12 :51 AM CDT documented as of this encounter Plan of Treatment Upcoming Encounters Date Type Department Care Team (Late st Contact Info) Description 05/31/2024 8:40 AM FITNESS WORKER Therapy Visit [facility] Rehabilitation Services [address] 160 [place] [phone] Ingris Thompson, PT [facility] [address] [place] [address] 106 [place] [address] 05/31/2024 3:30 PM FITNESS WORKER Office Visit [facility] [place] [address] [place] [phone] Audrey Díaz PA-C Khan, Waseem, MD [address] [place] [address] [phone] 06/04/2024 3:30 PM FITNESS WORKER [facility] Visit [facility] [place] 3[address] [facility] [address] [place] [phone] Jelena David, OD [address] [facility] [place] [address] 06/11/2024 10:30 AM FITNESS WORKER Appointment [facility] Respiratory Therapy [address] [place] [phone] Spec, Nurse Only Med 06/18/2024 2:50 PM FITNESS WORKER Therapy Visit [facility] Rehabilitation Services [address] [place] [phone] Ingris Thompson, PT [facility] 516 [facility] 106 [place], [place] 89[address]95 06/21/2024 2:00 PM FITNESS WORKER Office Visit [facility] Neurology Clinics - [place] [address] [place] [address], [address] [place] [phone] [place] [address] [place], [place] 853037 Johnny Penn MD 6545 [place], [place] 352805 06/25/2024 8:30 AM FITNESS WORKER Office Visit [address] [address] Valery Veronica, PA-C [address] [place] [address] 11/28/2024 7:45 AM CDT Virtual Visit [facility] Gastroenterology [address] 4th [place] [phone] Meredith Carrera PA-C 909 [place] [address] documented as of this encounter Visit Diagnoses Not on filedocumented in this encounter Additional Health Concerns Infection Onset Date Last Indicated Resolved Time Rule Out COVID-19 12/26/2023 12/26/2023 12/26/2023 9:50 AM CDT Rule Out COVID-19 04/09/2024 04/09/2024 04/10/2024 6:48 PM CDT Assessment Noted Time PHQ-9 Depression Total Score: 4 06/20/20 23 8:40 AM FITNESS WORKER documented as of this encounter Care Teams Senior Licensing Manager Relationship Specialty Start Date End Date Esha Grimm PA-C [address] [place] [address] PCP - General Family Medicine 05/04/23 [facility] 3033 [place] [address] Pharmacist Pharmacist 04/17/21 Rain Galaviz PA-C [address] [place] [address] [address] [place] [address] Physician Incoming Inspector Dermatology 04/28/21 Tavia Wyatt MD [address] [place] [address] [address] [place] [address] Dermatology 07/14/21 Erica Farrell APRN SHEETMETAL WORKER 6405 [facility] [address] [place] [address] Nurse Practitioner Cardiovascular Disease 09/09/21 Rich Barrett MD [address] [address] Physician Ophthalmology 01/21/22 Neil Kent MD 500 [place], [place] 686615 Dermatology 02/24/22 Diana Desir, [facility] 3033 [place], [place] 424136 Assigned MTM Pharmacist 04/07/22 Livan Sharif MD [address] [facility] [place] 240[address] Cardiovascular Disease 05/14/22 Catherine Cm MD [address] [facility] [place] 725535 Cardiovascular Disease 07/21/22 Valery Veronica, PA-C 9 [place], [place] 313595 Physician Incoming Inspector Dermatology 07/21/22 Brea Quinn APRN SHEETMETAL WORKER 500 [place] [address] Nurse Practitioner Dermatology 09/21/22 Brea Quinn APRN SHEETMETAL WORKER [address] [place], [place] [address]chuck [place] [facility] 480372 Assigned Surgical Provider 10/09/22 05/01/24 [place] [address] [place] [address] 938287 Assigned Musculoskeletal Provider 10/09/22 05/01/24 Alfonso Renteria MD [address] [facility] [address] 200 [place] [address] Assigned Neuroscience Provider 04/02/23 Radha Lomeli APRN SHEETMETAL WORKER 6405 [facility] [address] [place] [address] Assigned Heart and Vascular Provider 05/28/23 Jelena [place] OD [address] [facility] [address] Ophthalmology 06/15/23 Pao Joseph, VJ Personal Advocate & Liaison (PAL) Nurse 08/01/23 11/07/23 Esha Grimm PA-C [address] [place] [phone] Assigned PCP 07/16/23 Valery Veronica PA-C [address] [place] [address] 026115 Physician Incoming Inspector Dermatology 09/19/23 Rey Tay MD [address] [place] [address] 544415 Gastroenterology 09/20/23 Rocky Zepeda DO [address] [place] [address] 337795 Physician Gastroenterology 09/20/23 Philip Dumont MD [address] [place] [address] 777615 Physician Ophthalmology 09/22/23 Meredith Carrera PA-C [address] [place] [address] Assigned Gastroenterology Provider 11/01/23 Neil Kent MD [address] [address] Dermatology 11/02/23 [place] [address] 790357 Neurological Surgery 12/26/23 Audrey Waite PA-C [address] [place] [address] Physician Incoming Inspector Dermatology 02/28/24 Valery Veronica PA-C 839933 [address], [place] [address] Physician Incoming Inspector Dermatology 04/10/24 documented as of this encounter
--- OUTSIDE RECORDS SUMMARY | 2024-05-27 08:48 | XMS_ITS | Encounter Summary ---
Author Organization [place] Address [address] [place] [address] Care Team Providers Care Parts Picker Name Role Phone Diana Desir [facility] Unavailable Rain Galaviz PA-C Unavailable Tavia Wyatt MD Unavailable Unavailable Erica Farrell [employer] WEIGHTER 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 Unavailable Rich Barrett MD Unavailable Neil Kent MD Unavailable ThangDiana [facility] Unavailable [phone] Livan Sharif MD Unavailable Catherine Cm MD Unavailable + Valery Veronica PA-C Unavailable [phone] Brea Quinn [employer] WEIGHTER 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 Unavailable Brea Quinn [employer] WEIGHTER 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 Unavailable [phone] Jose Francisco Johnson MD Unavailable Alfonso Renteria MD Unavailable + [phone] Esha Grimm PA-C Primary Care Provider Radha Lomeli [employer] WEIGHTER 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 Unavailable [phone] FrankieJelena OD Unavailable Pao Joseph RN Unavailable Unavailable Esha Grimm PA-C Unavailable [phone] Valery Veronica PA-C Unavailable [phone] Rey Tay MD Unavailable Rocky Zepeda DO Unavailable Philip Dumont MD Unavailable Meredith Carrera PA-C Unavailable Neil Kent MD Unavailable Juan Pablo Emmanuel MD Unavailable [phone] Audrey Waite PA-C Unavailable [phone] Valery Veronica PA-C Unavailable [phone] Encounter Details Date Type Department Care Team (Late st Contact Info) Description 08/25/2023 MyC Medical Advice [address] [address] Diana Desir, [facility] 3033 [place], [place] [phone] Social History Tobacco Use Types Packs/Day Years [...] you attend [facility] or protestant services? 1 to 4 [...] exercise at this level? 30 min 03/10/2023 [place] Depression Scale Answer Date Recorded [place] Depression Score 5 01/14/2021 Last EPDS Self [...] PM CDT Legal Sex Female 4:13 AM FUR TAILOR Gender Identity Female 03/02/2021 5:45 PM CDT Sexual Orientation Straight 02/28/2020 12 :51 AM CDT documented as of this encounter Plan of Treatment Upcoming Encounters Date Type Department Care Team (Late st Contact Info) Description 05/31/2024 8:40 AM FUR TAILOR Therapy Visit [facility] Rehabilitation Services [address] 160 [place] [phone] Ingris Thompson, PT [facility] [address] [place] [address] 106 [place] [address] 05/31/2024 3:30 PM FUR TAILOR Office Visit [facility] [place] [address] [place] [phone] Audrey Díaz PA-C Khan, Waseem, MD [address] [place] [address] [phone] 06/04/2024 3:30 PM FUR TAILOR Office Visit [facility] [place] 3305 [facility] [address] [place] [phone] Jelena David, OD 3305 [facility] [place] [address] 06/11/2024 10:30 AM FUR TAILOR Appointment [facility] Respiratory Therapy [address] [place] [phone] Spec, Nurse Only Med 06/18/2024 2:50 PM FUR TAILOR Therapy Visit [facility] Rehabilitation Services [address] [place] [phone] Ingris Thompson, PT [facility] 516 [facility] 106 [place], [place] 235545 06/21/2024 2:00 PM FUR TAILOR Office Visit [facility] Neurology Clinics - [place] [address] [place] [address], [address] [place] [address] [place] [address] [place], [place] 508317 Johnny Penn MD 6545 [place], [place] 762525 06/25/2024 8:30 AM FUR TAILOR Office Visit [address] [phone] Valery Veronica, PA-C [address] [place] [address] 11/28/2024 7:45 AM CDT Virtual Visit [facility] Gastroenterology [address] 4th [place] [phone] Meredith Carrera PA-C 909 [place] [address] documented as of this encounter Visit Diagnoses Not on filedocumented in this encounter Additional Health Concerns Infection Onset Date Last Indicated Resolved Time Rule Out COVID-19 12/26/2023 12/26/2023 12/26/2023 9:50 AM CDT Rule Out COVID-19 04/09/2024 04/09/2024 04/10/2024 6:48 PM CDT Assessment Noted Time PHQ-9 Depression Total Score: 4 06/20/20 23 8:40 AM FUR TAILOR documented as of this encounter Care Teams Parts Picker Relationship Specialty Start Date End Date Esha Grimm PA-C [address] [place] [address]83 PCP - General Family Medicine 05/04/23 [facility] 3033 [place] [address] Pharmacist Pharmacist 04/17/21 Rain Galaviz PA-C [address] [place] [address] [address] [place] [address] Physician Used Building Materials Yard Worker Dermatology 04/28/21 Tavia Wyatt MD [address] [place] [address] [address] [place] [address] Dermatology 07/14/21 Erica Farrell APRN 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 6405 [facility] [address] [place] [address] Nurse Practitioner Cardiovascular Disease 09/09/21 Rich Barrett MD [address] 036705 Physician Ophthalmology 01/21/22 Neil Kent MD 500 [place], [place] [address]125 Dermatology 02/24/22 Diana Desir, [facility] 3033 [place], [place] 987576 Assigned MTM Pharmacist 04/07/22 Livan Sharif MD [address] [facility] [place] 58[address] Cardiovascular Disease 05/14/22 Catherine Cm MD [address] [facility] [place] 1916[address] Cardiovascular Disease 07/21/22 Valery Veronica, PA-C 9 [place], [place] 345335 Physician Used Building Materials Yard Worker Dermatology 07/21/22 Brea Quinn APRN 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 500 [place] [address] Nurse Practitioner Dermatology 09/21/22 Brea Quinn APRN 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 [address] [place], [place] [address]chuck [place] [facility] [place] 006672 Assigned Surgical Provider 10/09/22 05/01/24 [place] [address] [place] [address] 559377 Assigned Musculoskeletal Provider 10/09/22 05/01/24 Alfonso Renteria MD [address] [facility] [address] 200 [place] [address] Assigned Neuroscience Provider 04/02/23 Radha Lomeli APRN 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 6405 [facility] [address] [place] [address] Assigned Heart and Vascular Provider 05/28/23 Jelena David OD 3305 [facility] [place] [address] Ophthalmology 06/15/23 Pao Joseph, VJ Personal Advocate & Liaison (PAL) Nurse 08/01/23 11/07/23 Esha Grimm PA-C [address] [place] [phone] Assigned PCP 07/16/23 Valery Veronica PA-C [address] [place] [address] 093975 Physician Used Building Materials Yard Worker Dermatology 09/19/23 Rey Tay MD [address] [place] [address] 551495 Gastroenterology 09/20/23 Rocky Zepeda DO [address] [place] [address] 540455 Physician Gastroenterology 09/20/23 Philip Dumont MD [address] [place] [address] 898675 Physician Ophthalmology 09/22/23 Meredith aCrrera PA-C [address] [place] [address] Assigned Gastroenterology Provider 11/01/23 Neil Kent MD [address] [address] Dermatology 11/02/23 [place] [address] 766277 Neurological Surgery 12/26/23 Audrey Waite PA-C [address] [place] [address] Physician Used Building Materials Yard Worker Dermatology 02/28/24 Valery Veronica PA-C 582311 [place], [place] [address] Physician Used Building Materials Yard Worker Dermatology 04/10/24 documented as of this encounter
--- OUTSIDE RECORDS SUMMARY | 2024-05-27 08:48 | XMS_ITS | Encounter Summary ---
Author Organization [facility] Address [address] [place] [address] Care Team Providers Care Chair Maker Name Role Phone Diana Desir [facility] Unavailable [phone] Rain Galaviz PA-C Unavailable Tavia Wyatt MD Unavailable Unavailable Erica Farrell LIEUTENANT GOVERNOR BIT SHARPENER OPERATOR Unavailable Rich Barrett MD Unavailable Neil Kent MD Unavailable ThangDiana [facility] Unavailable [phone] Livan Sharif MD Unavailable Catherine Cm MD Unavailable + Valery Veronica PA-C Unavailable [phone] Brea Quinn LIEUTENANT GOVERNOR BIT SHARPENER OPERATOR Unavailable Brea Quinn LIEUTENANT GOVERNOR BIT SHARPENER OPERATOR Unavailable Jose Francisco Johnson MD Unavailable Alfonso Renteria MD Unavailable + [phone] Esha Grimm PA-C Primary Care Provider Radha Lomeli LIEUTENANT GOVERNOR BIT SHARPENER OPERATOR Unavailable [phone] Jelena David OD Unavailable Pao Joseph RN Unavailable Unavailable [facility] [place]ina PA-C Unavailable [phone] Valery Veronica PA-C Unavailable Rey Tay MD Unavailable Rocky Zepeda DO Unavailable Philip Dumont MD Unavailable [phone] Meredith Carrera PA-C Unavailable [phone] Neil Kent MD Unavailable Juan Pablo Emmanuel MD Unavailable [phone] Audrey Waite PA-C Unavailable [phone] Valery Veronica PA-C Unavailable Encounter Details Date Type Department Care Team (Late st Contact Info) Description 08/25/2023 MyC Medical Advice [facility] [address] [place] [address] Marija Polanco, VJ Social History [...] 06/20/2023 [facility] - [...] exercise at this level? 30 min 03/10/2023 [place] Depression Scale Answer Date Recorded [place] Depression Score 5 01/14/2021 Last EPDS Self [...] CDT Legal Sex Female 4:13 AM MACHINE PROGRAMMER Gender Identity Female 03/02/2021 5:45 PM CDT Sexual Orientation Straight 02/28/2020 12 :51 AM CDT documented as of this encounter Plan of Treatment Upcoming Encounters Date Type Department Care Team (Late st Contact Info) Description 05/31/2024 8:40 AM MACHINE PROGRAMMER Therapy Visit [facility] [address] [place] [phone] Ingris Thompson, PT [facility] [address] [place] [address] 05/31/2024 3:30 PM MACHINE PROGRAMMER Office Visit [facility] [address] [phone] Audrey Díaz, Herminia Koo MD [address] [place] [address] [phone] 06/04/2024 3:30 PM MACHINE PROGRAMMER Office Visit [address] [place] [phone] Jelena David, OD [address] [facility] [place] [address] 06/11/2024 10:30 AM MACHINE PROGRAMMER Appointment [facility] Respiratory Therapy [address] [place] [address] Spec, Nurse Only Med 06/18/2024 2:50 PM MACHINE PROGRAMMER Therapy Visit [facility] [place] [address] [place] [address] [address] [place] [phone] Ingris Thompson, PT [facility] 516 [facility] 106 [place], [place] 6[address]75 06/21/2024 2:00 PM MACHINE PROGRAMMER Office Visit [facility] [place] [address] [place] [address], [address] [place] [phone] [place] [address] [place], [place] [address] Johnny Penn MD 3600 [place] [address] 06/25/2024 8:30 AM MACHINE PROGRAMMER Office Visit [address] [phone] Valery Veronica PA-C [address] [place] [address] 773395 11/28/2024 7:45 AM CDT Virtual Visit [facility] [address] [place] [address] 4th [place] [phone] Meredith Carrera PA-C [address] [place] [address] 244595 documented as of this encounter Visit Diagnoses Not on filedocumented in this encounter Additional Health Concerns Infection Onset Date Last Indicated Resolved Time Rule Out COVID-19 12/26/2023 12/26/2023 12/26/2023 9:50 AM CDT Rule Out COVID-19 04/09/2024 04/09/2024 04/10/2024 6:48 PM CDT Assessment Noted Time PHQ-9 Depression Total Score: 4 06/20/20 23 8:40 AM MACHINE PROGRAMMER documented as of this encounter Care Teams Chair Maker Relationship Specialty Start Date End Date Esha Grimm PA-C [address] [place] [address] PCP - General Family Medicine 05/04/23 Diana Desir, [facility] [address] [place], [place] [phone] Pharmacist Pharmacist 04/17/21 Rain Galaviz PA-C [address] [place] [address] [address] [place] [address] Physician Aix Architect Dermatology 04/28/21 Tavia Wyatt MD [address] [place] [address] [address] [place] [address] Dermatology 07/14/21 Erica Farrell APRN BIT SHARPENER OPERATOR [address] [facility] [address] [place] 923305 Nurse Practitioner Cardiovascular Disease 09/09/21 Rich Barrett MD 516 [facility] 9A [place], [place] 994[address] Physician Ophthalmology 01/21/22 Neil Kent MD 500 [place] [address] Dermatology 02/24/22 Diana Desir, [facility] 3033 [place] [address] Assigned [place] Pharmacist 04/07/22 Livan Sharif MD [address] [facility] [address] [place] 845805 Cardiovascular Disease 05/14/22 Catherine Cm MD [address] [place] [address] [place] 738645 Cardiovascular Disease 07/21/22 Valery Veronica, PA-C 909 [place] [address] Physician Aix Architect Dermatology 07/21/22 Brea Quinn APRN BIT SHARPENER OPERATOR 500 [place] [address] Nurse Practitioner Dermatology 09/21/22 Brea Quinn APRN BIT SHARPENER OPERATOR 6401 [place] [address] Assigned Surgical Provider 10/09/22 05/01/24 [place] [address] [place] [address] Assigned Musculoskeletal Provider 10/09/22 05/01/24 MyraAlfonso garcia MD [address] [place] [address] Assigned Neuroscience Provider 04/02/23 Armani Radha Stovall LIEUTENANT GOVERNOR BIT SHARPENER OPERATOR [address] [place], [place] 6[address] Assigned Heart and Vascular Provider 05/28/23 Jelena David OD [address] [facility] [place] [address] Ophthalmology 06/15/23 Pao Joseph, VJ Personal Advocate & Liaison (PAL) Nurse 08/01/23 11/07/23 Esha Grimm PA-C [address] [place] [phone] Assigned PCP 07/16/23 Valery Veronica PA-C [address] [place] [address] 857595 Physician Aix Architect Dermatology 09/19/23 Rey Tay MD [address] [place] [address] 536555 Gastroenterology 09/20/23 Rocky Zepeda DO [address] [place] [address] 183625 Physician Gastroenterology 09/20/23 Philip Dumont MD [address] [place] [address] 481495 Physician Ophthalmology 09/22/23 Meredith Carrera PA-C 909 [place] [address] Assigned Gastroenterology Provider 11/01/23 Neil Kent MD [address] [place] [address] Dermatology 11/02/23 [place] [address] [address] Neurological Surgery 12/26/23 Audrey Waite PA-C 500 [place] [address] Physician Aix Architect Dermatology 02/28/24 Valery Veronica PA-C [id number] [place] [address] Physician Aix Architect Dermatology 04/10/24 documented as of this encounter
--- OUTSIDE RECORDS SUMMARY | 2024-05-27 08:48 | XMS_ITS | Encounter Summary ---
Author Organization [facility] Address [address] [place] [address] Care Team Providers Care Technology Solutions Architect Name Role Phone Diana Desir [facility] Unavailable Rain Galaviz PA-C Unavailable Tavia Wyatt MD Unavailable Unavailable Erica Farrell PLUCK TRIMMER LOCKSTITCHER Unavailable Rich Barrett MD Unavailable Neil Kent MD Unavailable ThangDiana [facility] Unavailable [phone] Livan Sharif MD Unavailable Catherine Cm MD Unavailable + Valery Veronica PA-C Unavailable [phone] Brea Quinn PLUCK TRIMMER LOCKSTITCHER Unavailable Brea Quinn PLUCK TRIMMER LOCKSTITCHER Unavailable Jose Francisco Johnson MD Unavailable Alfonso Renteria MD Unavailable + [phone] Esha Grimm PA-C Primary Care Provider [phone] Radha Lomeli PLUCK TRIMMER LOCKSTITCHER Unavailable [phone] FrankieJelena OD Unavailable Pao Joseph RN Unavailable Unavailable Esha Grimm PA-C Unavailable [phone] Valery Veronica PA-C Unavailable Rey Tay MD Unavailable Rocky Zepeda DO Unavailable Philip Dumont MD Unavailable Meredith CarreraC Unavailable Neil Kent MD Unavailable Juan Pablo Emmanuel MD Unavailable Audrey Waite PA-C Unavailable [phone] Valery Veronica PA-C Unavailable Reason for Visit * Reason Onset Date Comments Medication Question 10/21/2023 omeprazole Encounter Details Date Type Department Care Team (Late st Contact Info) Description 10/21/2023 Telephone [facility] Gastroenterology Clinic [address] [place] [address] Meredith Carrera PA-C [address] [place] [address] Medication Question (omeprazole ) Social History [...] How often do you attend [facility]? 1 to 4 times [...] 0 10/25/2023 [facility] [...] exercise at this level? 30 min 03/10/2023 [place] Depression Scale Answer Date Recorded [place] Depression Score 5 01/14/2021 Last EPDS Self [...] CDT Legal Sex Female 4:13 AM ASSISTANT TODDLER TEACHER Gender Identity Female 03/02/2021 5:45 PM CDT Sexual Orientation Straight 02/28/2020 12 :51 AM CDT documented as of this encounter Miscellaneous Notes * Telephone Encounter - Mayra Rajput - 10/21/2023 4:42 PM CDT [facility] Phone [...] routed to: [facility] GASTROENTEROLOGY [facility]ULT [facility][[id number]] Travel Screening: Not Applicable documented in this encounter Plan of Treatment Upcoming Encounters Date Type Department Care Team (Late st Contact Info) Description 05/31/2024 8:40 AM ASSISTANT TODDLER TEACHER Therapy Visit [facility] [address] [place] [address] [address] [place] [phone] Ingris Thompson, PT [facility] [address] [place] [address] 106 [place] [address] 05/31/2024 3:30 PM ASSISTANT TODDLER TEACHER Office Visit [place] [address] [place] [phone] Audrey Díaz, Herminia Koo MD [facility]5 [place], [place] [phone] 06/04/2024 3:30 PM ASSISTANT TODDLER TEACHER Office Visit [address] [place] [phone] Jelena David, [address] [place] [address] 06/11/2024 10:30 AM ASSISTANT TODDLER TEACHER Appointment [facility] Respiratory Therapy [address] [place] [phone] Spec, Nurse Only Med 06/18/2024 2:50 PM ASSISTANT TODDLER TEACHER Therapy Visit [facility] Rehabilitation [facility] [address] [place] [address] [address] [place] [address] Ingris Thompson, PT [facility] [address] [place] [address] 06/21/2024 2:00 PM ASSISTANT TODDLER TEACHER Office Visit [facility] Neurology Clinics - [address], [address] [place] [address] [place] [address] [place] [address] Johnny Penn MD [address] [place], [place] [address] 06/25/2024 8:30 AM ASSISTANT TODDLER TEACHER Office Visit [facility] [address] [place] [phone] Valery Veronica PA-C [address] [place] [address] 11/28/2024 7:45 AM CDT Virtual Visit [facility] Gastroenterology Clinic [address] [phone] Meredith Carrera PA-C [address] [place] [address] 547195 documented as of this encounter Visit Diagnoses Not on filedocumented in this encounter Additional Health Concerns Infection Onset Date Last Indicated Resolved Time Rule Out COVID-19 12/26/2023 12/26/2023 12/26/2023 9:50 AM CDT Rule Out COVID-19 04/09/2024 04/09/2024 04/10/2024 6:48 PM CDT Assessment Noted Time PHQ-9 Depression Total Score: 4 06/20/20 23 8:40 AM ASSISTANT TODDLER TEACHER documented as of this encounter Care Teams Technology Solutions Architect Relationship Specialty Start Date End Date Esha Grimm PA-C [address] [place] [address] PCP - General Family Medicine 05/04/23 Diana Desir [facility] 3033 [place] [address] Pharmacist Pharmacist 04/17/21 Rain Galaviz PA-C [address] [place] [address] [address] [place] [address] Physician Caretaker Dermatology 04/28/21 Tavia Wyatt MD [address] [place] [address] [address] [place] [address] Dermatology 07/14/21 Erica Farrell APRN LOCKSTITCHER [address] [place] [address] Nurse Practitioner Cardiovascular Disease 09/09/21 Rich Barrett MD [address] [place] [address] 452035 Physician Ophthalmology 01/21/22 Neil [place] MD [address] [place] [address] 144685 MD Dermatology 02/24/22 [facility] [address] [place] [address] 356196 Assigned [facility] Pharmacist 04/07/22 Livan Sharif MD [address], [facility]00 [place] [address]35 Cardiovascular Disease 05/14/22 Catherine Cm MD [address] [facility]00 [place] 99[address]95 Cardiovascular Disease 07/21/22 Valery Veronica PA-C [address] [place] [address] 503975 Physician Caretaker Dermatology 07/21/22 Brea Quinn APRN LOCKSTITCHER 500 [place], [place] 105275 Nurse Practitioner Dermatology 09/21/22 Brea Quinn APRN LOCKSTITCHER 6401 [place] [address] Assigned Surgical Provider 10/09/22 05/01/24 [place] [address] [address] Assigned Musculoskeletal Provider 10/09/22 05/01/24 Alfonso Renteria MD 5775 [facility] 200 [place], [place] 644976 Assigned Neuroscience Provider 04/02/23 Radha Lomeli APRN LOCKSTITCHER [address] [facility] [address] [place] [address] Assigned Heart and Vascular Provider 05/28/23 Jelena David OD [address] [facility] [place] [address] Ophthalmology 06/15/23 Pao Joseph, VJ Personal Advocate & Liaison (PAL) Nurse 08/01/23 11/07/23 Esha Grimm PA-C [address] [place] [address] Assigned PCP 07/16/23 Valery Veronica PA-C 9 [place] [address] Physician Caretaker Dermatology 09/19/23 Rey Tay MD 9 [place] [address] MD Gastroenterology 09/20/23 Rocky Zepeda DO 500 [place] [address] Physician Gastroenterology 09/20/23 Philip Dumont MD 6 [place] [address] Physician Ophthalmology 09/22/23 Meredith Carrera PA-C [address] [place] [address] Assigned Gastroenterology Provider 11/01/23 Neil [place] MD [address] [address] Dermatology 11/02/23 [place] [address] [place] [address] Neurological Surgery 12/26/23 Audrey Waite PA-C 500 [place] [address] Physician Caretaker Dermatology 02/28/24 Valery Veronica PA-C [address] [place] [address] Physician Caretaker Dermatology 04/10/24 documented as of this encounter
--- OUTSIDE RECORDS SUMMARY | 2024-05-27 08:48 | XMS_ITS | Encounter Summary ---
Author Organization [facility] Address [address] [place] [address] Care Team Providers Care Machine Plug Shaper Name Role Phone Diana Desir [facility] Unavailable Rain Galaviz PA-C Unavailable Tavia Wyatt MD Unavailable Unavailable Erica Farrell GUN NUMBER MANAGER PULMONARY Unavailable Rich Barrett MD Unavailable Neil Kent MD Unavailable ThangDiana [facility] Unavailable [phone] Livan Sharif MD Unavailable Catherine Cm MD Unavailable + Valery Veronica PA-C Unavailable [phone] Brea Quinn GUN NUMBER MANAGER PULMONARY Unavailable Brea Quinn GUN NUMBER MANAGER PULMONARY Unavailable Jose Francisco Johnson MD Unavailable Alfonso Renteria MD Unavailable + [phone] Esha Grimm PA-C Primary Care Provider [phone] Radha Lomeli GUN NUMBER MANAGER PULMONARY Unavailable [phone] Jelena David OD Unavailable [phone] Pao Joseph RN Unavailable Unavailable [facility] [place] PA-C Unavailable [phone] Valery Veronica PA-C Unavailable Rey Tay MD Unavailable Rocky Zepeda DO Unavailable Philip Dumont MD Unavailable [phone] Meredith Carrera PA-C Unavailable [phone] Neil Kent MD Unavailable Juan Pablo Emmanuel MD Unavailable [phone] Audrey Waite PA-C Unavailable [phone] Valery Veronica PA-C Unavailable [phone] Encounter Details Date Type Department Care Team (Late st Contact Info) Description 09/08/2023 MyC Medical Advice [facility] Gastroenterology Clinic [address] [place] [address] Marija Polanco, VJ Social History [...] PHQ-2 Score 0 06/20/2023 [facility] - Occupational Stress Questionnaire Answer Date [...] exercise at this level? 30 min 03/10/2023 [place] Depression Scale Answer Date Recorded [place] Depression Score 5 01/14/2021 Last EPDS [...] CDT Legal Sex Female 4:13 AM COMMUNITY PLANNING TECHNICIAN Gender Identity Female 03/02/2021 5:45 PM CDT Sexual Orientation Straight 02/28/2020 12 :51 AM CDT documented as of this encounter Plan of Treatment Upcoming Encounters Date Type Department Care Team (Late st Contact Info) Description 05/31/2024 8:40 AM COMMUNITY PLANNING TECHNICIAN Therapy Visit [facility] Rehabilitation Services [address] [place] [phone] Ingris Thompson, PT [facility] [address] [place] [address] 05/31/2024 3:30 PM COMMUNITY PLANNING TECHNICIAN Office Visit [facility] Specialty Clinic [address] [phone] Audrey Díaz, Herminia Koo MD [address] [place] [address] 81862125 06/04/2024 3:30 PM COMMUNITY PLANNING TECHNICIAN Office Visit [address] [place] [phone] Jelena David, OD [address] [facility] [place] [address] 06/11/2024 10:30 AM COMMUNITY PLANNING TECHNICIAN Appointment [facility] Respiratory Therapy [address] [place] [address] Spec, Nurse Only Med 06/18/2024 2:50 PM COMMUNITY PLANNING TECHNICIAN Therapy Visit [facility] Rehabilitation Services [place] [address] [place] [address] [address] [place] [phone] Ingris Thompson, PT [facility] 516 [facility] 106 [place], [place] 9[address] 06/21/2024 2:00 PM COMMUNITY PLANNING TECHNICIAN Office Visit [facility] Neurology Clinics - [place] [address] [place] [address], [address] [place] [phone] [place] [address] [place], [place] [address] Johnny Penn MD 8126 [place] [address] 06/25/2024 8:30 AM COMMUNITY PLANNING TECHNICIAN Office Visit [address] [phone] Valery Veronica PA-C [address] [place] [address] 010545 11/28/2024 7:45 AM CDT Virtual Visit [facility] Gastroenterology [facility] [address] [place] [address] 4th [place] [phone] Meredith Carrera PA-C [address] [place] [address] 357785 documented as of this encounter Visit Diagnoses Not on filedocumented in this encounter Additional Health Concerns Infection Onset Date Last Indicated Resolved Time Rule Out COVID-19 12/26/2023 12/26/2023 12/26/2023 9:50 AM CDT Rule Out COVID-19 04/09/2024 04/09/2024 04/10/2024 6:48 PM CDT Assessment Noted Time PHQ-9 Depression Total Score: 4 06/20/20 23 8:40 AM COMMUNITY PLANNING TECHNICIAN documented as of this encounter Care Teams Machine Plug Shaper Relationship Specialty Start Date End Date Esha Grimm PA-C [address] [place] [address] PCP - General Family Medicine 05/04/23 Diana Desir, [facility] [address] [place], [place] [address] Pharmacist Pharmacist 04/17/21 Rain Galaviz PA-C [address] [place] [address] [address] [address] Physician Bundler Seasonal [place] Dermatology 04/28/21 Tavia Wyatt MD [address] [place] [address] [address] [address] Dermatology 07/14/21 Erica Farrell APRN MANAGER PULMONARY 6405 [facility] [address] [place] [address] Nurse Practitioner Cardiovascular Disease 09/09/21 Rich Barrett MD 516 [facility] 9A [place], [place] [address] Physician Ophthalmology 01/21/22 Neil [place] MD 500 [place] [address] Dermatology 02/24/22 Diana Desir, [facility] 3033 [place] [address] Assigned [place] Pharmacist 04/07/22 Livan Sharif MD [address] [facility] [address] [place] 456[address] Cardiovascular Disease 05/14/22 Catherine Cm MD [address] [place] [address] [place] 5[address] Cardiovascular Disease 07/21/22 Valery Veronica, PA-C 909 [place] [address] Physician Bundler Seasonal [place] Dermatology 07/21/22 Brea Quinn APRN MANAGER PULMONARY 500 [place] [address] Nurse Practitioner Dermatology 09/21/22 Brea Quinn APRN MANAGER PULMONARY 6401 [place] [address] Assigned Surgical Provider 10/09/22 05/01/24 [place] [address] [place] [address] Assigned Musculoskeletal Provider 10/09/22 05/01/24 MyraAlfonso garcia MD [address] [place] [address] Assigned Neuroscience Provider 04/02/23 Armani Radha Stovall GUN NUMBER MANAGER PULMONARY [address] [place], [place] 931295 Assigned Heart and Vascular Provider 05/28/23 Jelnea David OD 3305 [facility] [place] [address] Ophthalmology 06/15/23 Pao Joseph, JV Personal Advocate & Liaison (PAL) Nurse 08/01/23 11/07/23 Esha Grimm PA-C [address] [place] [phone] Assigned PCP 07/16/23 Valery Veronica PA-C [address] [place] [address] 161035 Physician Bundler Seasonal [place] Dermatology 09/19/23 Rey Tay MD [address] [place] [address] 324635 Gastroenterology 09/20/23 Rocky Zepeda DO [address] [place] [address] 418625 Physician Gastroenterology 09/20/23 Philip Dumont MD [address] [place] [address] 636765 Physician Ophthalmology 09/22/23 Meredith Carrera PA-C 909 [place] [address] Assigned Gastroenterology Provider 11/01/23 Neil Kent MD [address] [place] [address] Dermatology 11/02/23 [place] [address] [place] [address] [address] Neurological Surgery 12/26/23 Audrey Waite PA-C 500 [place] [address] Physician Bundler Seasonal [place] Dermatology 02/28/24 Valery Veronica PA-C [address] [place] [address] Physician Bundler Seasonal [place] Dermatology 04/10/24 documented as of this encounter
--- OUTSIDE RECORDS SUMMARY | 2024-05-27 08:48 | XMS_ITS | Encounter Summary ---
Author Organization [place] Address [address] [place] [address] Care Team Providers Care Director Of Operations Support Name Role Phone Diana Desir [facility] Unavailable Rain Galaviz PA-C Unavailable Tavia Wyatt MD Unavailable Unavailable Erica Farrell DIRECTOR NON PROFIT MULT AU MATIC OPERATOR Unavailable Rich Barrett MD Unavailable Neil Kent MD Unavailable ThangDiana [facility] Unavailable [phone] Livan Sharif MD Unavailable Catherine Cm MD Unavailable + Valery Veronica PA-C Unavailable [phone] Brea Quinn DIRECTOR NON PROFIT MULT AU MATIC OPERATOR Unavailable Brea Quinn DIRECTOR NON PROFIT MULT AU MATIC OPERATOR Unavailable [phone] Jose Francisco Johnson MD Unavailable Alfonso Renteria MD Unavailable + [phone] Esha Grimm PA-C Primary Care Provider [phone] Radha Lomeli DIRECTOR NON PROFIT MULT AU MATIC OPERATOR Unavailable [phone] Jelena David OD Unavailable [phone] Pao Joseph RN Unavailable Unavailable Esha Grimm Adam PA-C Unavailable [phone] Valery Veronica PA-C Unavailable Rey Tay MD Unavailable Rocky Zepeda DO Unavailable Philip Dumont MD Unavailable [phone] Meredith Carrera PA-C Unavailable [phone] Neil Kent MD Unavailable Juan Pablo Emmanuel MD Unavailable Audrey Waite PA-C Unavailable [phone] Valery Veronica PA-C Unavailable Encounter Details Date Type Department Care Team (Late st Contact Info) Description 08/11/2023 MyC Medical Advice [address] [address] Pao Joseph, RN Social History [...] you attend chur ch or hoahaoism services? 1 to 4 times [...] exercise at this level? 30 min 03/10/2023 [place] Depression Scale Answer Date Recorded [place] Depression Score 5 01/14/2021 Last EPDS Self [...] PM CDT Legal Sex Female 4:13 AM TUFTING MACHINE FIXER Gender Identity Female 03/02/2021 5:45 PM CDT Sexual Orientation Straight 02/28/2020 12 :51 AM CDT documented as of this encounter Plan of Treatment Upcoming Encounters Date Type Department Care Team (Late st Contact Info) Description 05/31/2024 8:40 AM TUFTING MACHINE FIXER Therapy Visit [facility] Rehabilitation Services [address] [place] [phone] Ingris Thompson, PT [facility] [address] [place] [address] 05/31/2024 3:30 PM TUFTING MACHINE FIXER Office Visit [facility] Specialty Clinic [address] [phone] Audrey Díaz, Herminia Koo MD [address] [place] [address] [phone] 06/04/2024 3:30 PM TUFTING MACHINE FIXER Office Visit [address] [place] [phone] Jelena David OD [address] [facility] [place] [address] 06/11/2024 10:30 AM TUFTING MACHINE FIXER Appointment [facility] Respiratory Therapy [address] [place] [address] Spec, Nurse Only Med 06/18/2024 2:50 PM TUFTING MACHINE FIXER Therapy Visit [facility] Rehabilitation Services [address] [place] [phone] Ingris Thompson, PT [facility] [address] [facility] [address] [place], [place] [address] 06/21/2024 2:00 PM TUFTING MACHINE FIXER Office Visit [facility] Neurology [facility] - [address], [address] [place] [phone] [place] [address] [place], [place] 3623[address] Johnny Penn MD 2351 [place], [place] [address] 06/25/2024 8:30 AM TUFTING MACHINE FIXER Office Visit [address] [phone] Valery Veronica PA-C [address] [place] [address] 799165 11/28/2024 7:45 AM CDT Virtual Visit [facility] Gastroenterology Clinic [address] 4th [place] [phone] Meredith Carrera PA-C [address] [place] [address] 781165 documented as of this encounter Visit Diagnoses Not on filedocumented in this encounter Additional Health Concerns Infection Onset Date Last Indicated Resolved Time Rule Out COVID-19 12/26/2023 12/26/2023 12/26/2023 9:50 AM CDT Rule Out COVID-19 04/09/2024 04/09/2024 04/10/2024 6:48 PM CDT Assessment Noted Time PHQ-9 Depression Total Score: 4 06/20/20 8:40 AM TUFTING MACHINE FIXER documented as of this encounter Care Teams Director Of Operations Support Relationship Specialty Start Date End Date Esha Grimm PA-C [address] [place] [phone] PCP - General Family Medicine 05/04/23 Diana Desir, [facility] [address] [place], [place] 4612[address] Pharmacist Pharmacist 04/17/21 Rian Galaviz PA-C [address] [place] [address] [address] [place] [address] Physician Medical Equipment Repair Technician Dermatology 04/28/21 Tavia Wyatt MD [address] [place] [address] [address] [place] [address] Dermatology 07/14/21 Erica Farrell APRN MULT AU MATIC OPERATOR [address] [facility] [address] [place], [place] 7032[address] Nurse Practitioner Cardiovascular Disease 09/09/21 Rich Barrett MD [address] [facility] [address] [place], [place] [address] Physician Ophthalmology 01/21/22 Neil Kent MD 500 [place] [address] Dermatology 02/24/22 Diana Desir, [facility] 3033 [place] [address] Assigned [place] Pharmacist 04/07/22 Livan Sharif MD [address], [facility] [address] [place] 97[address] Cardiovascular Disease 05/14/22 Catherine Cm MD [address] [facility] [place], [place] 3913[address] Cardiovascular Disease 07/21/22 Valery Veronica, PA-C 909 [place] [address] Physician Medical Equipment Repair Technician Dermatology 07/21/22 Brea Quinn APRN MULT AU MATIC OPERATOR 500 [place] [address] Nurse Practitioner Dermatology 09/21/22 Brea Quinn APRN MULT AU MATIC OPERATOR 6401 [place] [address] Assigned Surgical Provider 10/09/22 05/01/24 [place] [address] [place] [address] Assigned Musculoskeletal Provider 10/09/22 05/01/24 Alfonso Renteria MD [address] [place] [address] Assigned Neuroscience Provider 04/02/23 Radha Lomeli APRN MULT AU MATIC OPERATOR [address] [place], [place] 5428[address] Assigned Heart and Vascular Provider 05/28/23 Jelena David OD [address] [facility] [address] Ophthalmology 06/15/23 Pao Joseph, VJ Personal Advocate & Liaison (PAL) Nurse 08/01/23 11/07/23 Esha Grimm PA-C [address] [place] [phone] Assigned PCP 07/16/23 Valery Veronica PA-C [address] [place] [address] 475965 Physician Medical Equipment Repair Technician Dermatology 09/19/23 Rey Tay MD [address] [place] [address] 182255 Gastroenterology 09/20/23 Rocky Zepeda DO [address] [place] [address] 219015 Physician Gastroenterology 09/20/23 Philip Dumont MD [address] [place] [address] Physician Ophthalmology 09/22/23 Meredith Carrera PA-C [address] [place] [address] Assigned Gastroenterology Provider 11/01/23 Neil Kent MD [address] [place] [address] Dermatology 11/02/23 [place] [address] [address] Neurological Surgery 12/26/23 Audrey Waite PA-C 500 [place] [address] Physician Medical Equipment Repair Technician Dermatology 02/28/24 Valery Veronica PA-C [address] [place] [address] Physician Medical Equipment Repair Technician Dermatology 04/10/24 documented as of this encounter
--- OUTSIDE RECORDS SUMMARY | 2024-05-27 08:48 | XMS_ITS | Encounter Summary ---
Author Organization [place] Address [address] [place] [address] Care Team Providers Care Wind Farm Electrical Systems Designer Name Role Phone Diana Desir [facility] Unavailable Rain Galaviz PA-C Unavailable Tavia Wyatt MD Unavailable Unavailable Erica Farrell ACID LOADER BRUSH CLEARER SURVEYING Unavailable Rich Barrett MD Unavailable Neil Kent MD Unavailable ThangDiana [facility] Unavailable [phone] Livan Sharif MD Unavailable Catherine Cm MD Unavailable + Valery Veronica PA-C Unavailable [phone] Brea Quinn ACID LOADER BRUSH CLEARER SURVEYING Unavailable Brea Quinn ACID LOADER BRUSH CLEARER SURVEYING Unavailable Jose Francisco Johnson MD Unavailable Alfonso Renteria MD Unavailable + [phone] Esha Grimm PA-C Primary Care Provider [phone] Radha Lomeli ACID LOADER BRUSH CLEARER SURVEYING Unavailable [phone] Jelena David OD Unavailable Pao Joseph RN Unavailable Unavailable Esha Grimm-C Unavailable [phone] Valery Veronica PA-C Unavailable Rey Tay MD Unavailable Rocky Zepeda DO Unavailable Philip Dumont MD Unavailable [phone] Meredith Carrera PA-C Unavailable [phone] Neil Kent MD Unavailable Juan Pablo Emmanuel MD Unavailable [phone] Audrey Waite PA-C Unavailable Valery Veronica PA-C Unavailable Encounter Details Date Type Department Care Team (Late st Contact Info) Description 08/10/2023 MyC Medical Advice [facility] [address] [place] [address] Esha Grimm PA-C [id number] [place] [address] Social History Tobacco Use Types Packs/Day [...] attend [facility]? 1 to 4 [...] at this level? 30 min 03/10/2023 [place] [facility] Depression Scale Answer Date Recorded [facility] Depression Score 5 01/14/2021 Last EPDS Self [...] PM CDT Legal Sex Female 4:13 AM AUDITING SPECIALIST Gender Identity Female 03/02/2021 5:45 PM CDT Sexual Orientation Straight 02/28/2020 12 :51 AM CDT documented as of this encounter Miscellaneous Notes * Telephone Encounter - Asiya Reddy RN - 08/10/2023 11:40 AM AUDITING SPECIALIST Esha- see AdhereTx message below. Patient did call to see if E-Visit would be addressed today. No immediate concern at this time. Advised UC if needed sooner. Asiya Reddy RN TING SPECIALIST documented in this encounter Plan of Treatment Upcoming Encounters Date Type Department Care Team (Late st Contact Info) Description 05/31/2024 8:40 AM AUDITING SPECIALIST Therapy Visit [facility] Rehabilitation Services [address] [place] [address] Ingris Thompson, PT [facility] [address] [place] [address] 106 [place] [address] 05/31/2024 3:30 PM AUDITING SPECIALIST Office Visit [facility] Specialty [place] [address] [place] [phone] Audrey Díaz, Herminia Koo MD [facility]5 [place] [address] 06/04/2024 3:30 PM AUDITING SPECIALIST [facility] [address] [facility] [address] [place] [phone] Jelena David, [address] [facility] [place] [address] 06/11/2024 10:30 AM AUDITING SPECIALIST Appointment [facility] Respiratory Therapy [address] [place] [phone] Spec, Nurse Only Med 06/18/2024 2:50 PM AUDITING SPECIALIST Therapy Visit [facility] Rehabilitation Services [address] [place] [phone] Ingris Thompson, PT [facility] [address] [place] [address] 106 [place], [place] 4[address]25 06/21/2024 2:00 PM AUDITING SPECIALIST Office Visit [facility] Neurology Clinics - [address], [address] [place] [address] [place] [address] [place] [address] Johnny Penn MD [address] [place] [address] 06/25/2024 8:30 AM AUDITING SPECIALIST Office Visit [facility] 830 [place] [address] Valery Veronica PA-C [address] [place] [address] 11/28/2024 7:45 AM CDT Virtual Visit [facility] Gastroenterology [address] 4th [place] [phone] Meredith Carrera PA-C [address] [place] [address] documented as of this encounter Visit Diagnoses Not on filedocumented in this encounter Additional Health Concerns Infection Onset Date Last Indicated Resolved Time Rule Out COVID-19 12/26/2023 12/26/2023 12/26/2023 9:50 AM CDT Rule Out COVID-19 04/09/2024 04/09/2024 04/10/2024 6:48 PM CDT Assessment Noted Time PHQ-9 Depression Total Score: 4 06/20/20 23 8:40 AM AUDITING SPECIALIST documented as of this encounter Care Teams Wind Farm Electrical Systems Designer Relationship Specialty Start Date End Date Esha Grimm PA-C [address] [place] [address] PCP - General Family Medicine 05/04/23 Diana Desir, [facility] 3033 [place] [address] Pharmacist Pharmacist 04/17/21 Rain Galaviz PA-C [address] [place] [address] [place] [address] Physician Guidance Consultant Dermatology 04/28/21 Tavia Wyatt MD [address] [place] [address] [address] [facility] [address] Dermatology 07/14/21 Erica Farrell APRN BRUSH CLEARER SURVEYING [address] [place] [address] Nurse Practitioner Cardiovascular Disease 09/09/21 Rich Barrett MD [address] [facility] 9A [place], [place] [phone] Physician Ophthalmology 01/21/22 Neil Kent MD 500 [place] [address] Dermatology 02/24/22 Diana Desir, [facility] 3033 [place], [place] 639026 Assigned MTM Pharmacist 04/07/22 Livan Sharif MD [address] [place] 668[address] Cardiovascular Disease 05/14/22 Catherine Cm MD [address] [place] 405[address] Cardiovascular Disease 07/21/22 Valery Veronica, PA-C 909 [place], [place] 220025 Physician Guidance Consultant Dermatology 07/21/22 Brea Quinn APRN BRUSH CLEARER SURVEYING 500 [place], [place] [phone] Nurse Practitioner Dermatology 09/21/22 Brea Quinn APRN BRUSH CLEARER SURVEYING 6401 [place] [address] Assigned Surgical Provider 10/09/22 05/01/24 [place] [address] [facility] 300 [place] [address] Assigned Musculoskeletal Provider 10/09/22 05/01/24 Alfonso Renteria MD [address] [facility] 200 [place], [place] 232876 Assigned Neuroscience Provider 04/02/23 Radha Lomeli APRN BRUSH CLEARER SURVEYING [address] [place] 8571400 [place] [address] Assigned Heart and Vascular Provider 05/28/23 Jelena David OD [address] [facility] [place] [address] Ophthalmology 06/15/23 Pao Joseph, VJ Personal Advocate & Liaison (PAL) Nurse 08/01/23 11/07/23 Esha Grimm PA-C [address] [place] [address] Assigned PCP 07/16/23 Valery Veronica PA-C [address] [place] [address] 118405 Physician Guidance Consultant Dermatology 09/19/23 Rey Tay MD 9 [place] [address] MD Gastroenterology 09/20/23 Rocky Zepeda DO 500 [place] [address] Physician Gastroenterology 09/20/23 Philip Dumont MD [address] [place] [address] Physician Ophthalmology 09/22/23 Meredith Carrera PA-C [address] [place] [address] Assigned Gastroenterology Provider 11/01/23 Neil Kent MD [address] [address] Dermatology 11/02/23 [place] [address] [facility] [place], [place] [address] Neurological Surgery 12/26/23 Audrey Waite PA-C 500 [place] [address] Physician Guidance Consultant Dermatology 02/28/24 Valery Veronica PA-C 460953 [place], [place] [address] Physician Guidance Consultant Dermatology 04/10/24 documented as of this encounter
--- OUTSIDE RECORDS SUMMARY | 2024-05-27 08:48 | XMS_ITS | Encounter Summary ---
Author Organization [place] Address [address] [place] [address] Care Team Providers Care Parts Identification Technician Name Role Phone Diana Desir [facility] Unavailable Rain Galaviz PA-C Unavailable Tavia Wyatt MD Unavailable Unavailable Erica Farrell INGOT BUGGY OPERATOR MANUFACTURING PROCESS TECHNICIAN Unavailable Rich Barrett MD Unavailable Neil Kent MD Unavailable ThangDiana [facility] Unavailable [phone] Livan Sharif MD Unavailable Catherine Cm MD Unavailable + Valery Veronica PA-C Unavailable [phone] Brea Quinn INGOT BUGGY OPERATOR MANUFACTURING PROCESS TECHNICIAN Unavailable Brea Quinn INGOT BUGGY OPERATOR MANUFACTURING PROCESS TECHNICIAN Unavailable Jose Francisco Johnson MD Unavailable Alfonso Renteria MD Unavailable + [phone] Esha Grimm PA-C Primary Care Provider Radha Lomeli INGOT BUGGY OPERATOR MANUFACTURING PROCESS TECHNICIAN Unavailable [phone] Jelena David OD Unavailable [phone] Pao Joseph RN Unavailable Unavailable [facility] PA-C Unavailable [phone] Valery Veronica PA-C Unavailable Rey Tay MD Unavailable Rocky Zepeda DO Unavailable Philip Dumont MD Unavailable [phone] Meredith Carrera PA-C Unavailable Neil Kent MD Unavailable Juan Pablo Emmanuel MD Unavailable [phone] Audrey Waite PA-C Unavailable [phone] Valery Veronica PA-C Unavailable Encounter Details Date Type Department Care Team (Late st Contact Info) Description 08/25/2023 MyC Medical Advice [facility] Gastroenterology Clinic [address] 4th [place] [address] Marija Polanco, VJ Social History [...] 0 06/20/2023 [facility] - Occupational Stress [...] PM CDT Legal Sex Female 4:13 AM PLUMBING DESIGNER Gender Identity Female 03/02/2021 5:45 PM CDT Sexual Orientation Straight 02/28/2020 12 :51 AM CDT documented as of this encounter Plan of Treatment Upcoming Encounters Date Type Department Care Team (Late st Contact Info) Description 05/31/2024 8:40 AM PLUMBING DESIGNER Therapy Visit [facility] Rehabilitation Services [address] [place] [phone] Ingris Thompson, PT [facility] [address] [place] [address] 05/31/2024 3:30 PM PLUMBING DESIGNER Office Visit [facility] Specialty Clinic [address] [phone] Audrey Díaz, Herminia Koo MD [address] [place] [address] [phone] 06/04/2024 3:30 PM PLUMBING DESIGNER Office Visit [address] [place] [phone] Jelena David, OD [address] [place] [address] 06/11/2024 10:30 AM PLUMBING DESIGNER Appointment [facility] Respiratory Therapy [address] [place] [address] Spec, Nurse Only Med 06/18/2024 2:50 PM PLUMBING DESIGNER Therapy Visit [facility] Rehabilitation Services [place] [address] [place] [address] [address] [place] [phone] Ingris Thompson, PT [facility] [address] [facility] 106 [place], [place] [address] 06/21/2024 2:00 PM PLUMBING DESIGNER Office Visit [facility] Neurology Clinics - [place] [address] [place] [address], [address] [place] [address] [place] [address] [place], [place] 9[address] Johnny Penn MD 6216 [place] [address] 06/25/2024 8:30 AM PLUMBING DESIGNER Office Visit [address] [phone] Valery Veronica PA-C [address] [place] [address] 810795 11/28/2024 7:45 AM CDT Virtual Visit [facility] Gastroenterology [facility] [address] [place] [address] 4th [place] [address] Meredith Carrera PA-C [address] [place] [address] 052295 documented as of this encounter Visit Diagnoses Not on filedocumented in this encounter Additional Health Concerns Infection Onset Date Last Indicated Resolved Time Rule Out COVID-19 12/26/2023 12/26/2023 12/26/2023 9:50 AM CDT Rule Out COVID-19 04/09/2024 04/09/2024 04/10/2024 6:48 PM CDT Assessment Noted Time PHQ-9 Depression Total Score: 4 06/20/20 23 8:40 AM PLUMBING DESIGNER documented as of this encounter Care Teams Parts Identification Technician Relationship Specialty Start Date End Date Esha Grimm PA-C [address] [place] [phone] PCP - General Family Medicine 05/04/23 Diana Desir, [facility] [address] [place], [place] [address] Pharmacist Pharmacist 04/17/21 Rain Galaviz PA-C [address] [place] [address] [address] [place] [address] Physician Hris Specialist Dermatology 04/28/21 Tavia Wyatt MD [address] [place] [address] [address] [place] [address] Dermatology 07/14/21 Erica Farrell APRN MANUFACTURING PROCESS TECHNICIAN 6405 [facility] [address] [place] 36[address] Nurse Practitioner Cardiovascular Disease 09/09/21 Rich Barrett MD 516 [facility] 9A [place], [place] [address] Physician Ophthalmology 01/21/22 Neil Kent MD 500 [place] [address] Dermatology 02/24/22 Diana Desir, [facility] 3033 [place] [address] Assigned [place] Pharmacist 04/07/22 Livan Sharif MD [address] [facility] [address] [place] 655035 Cardiovascular Disease 05/14/22 Catherine Cm MD [address] [place] [address] [place] 431505 Cardiovascular Disease 07/21/22 Valery Veronica, PA-C 909 [place] [address] Physician Hris Specialist Dermatology 07/21/22 Brea Quinn APRN MANUFACTURING PROCESS TECHNICIAN 500 [place] [address] Nurse Practitioner Dermatology 09/21/22 Brea Quinn APRN MANUFACTURING PROCESS TECHNICIAN 6401 [place] [address] Assigned Surgical Provider 10/09/22 05/01/24 [place] [address] [place] [address] Assigned Musculoskeletal Provider 10/09/22 05/01/24 MyraAlfonso garcia MD [address] [place] [address] Assigned Neuroscience Provider 04/02/23 Armani Radha Stovall INGOT BUGGY OPERATOR MANUFACTURING PROCESS TECHNICIAN [address] [place], [place] [address] Assigned Heart and Vascular Provider 05/28/23 Jelena David OD [address] [place] [address] Ophthalmology 06/15/23 Pao Joseph, VJ Personal Advocate & Liaison (PAL) Nurse 08/01/23 11/07/23 Esha Grimm PA-C [address] [place] [phone] Assigned PCP 07/16/23 Valery Veronica PA-C [address] [place] [address] 841495 Physician Hris Specialist Dermatology 09/19/23 Rey Tay MD [address] [place] [address] 257035 Gastroenterology 09/20/23 Rocky Zepeda DO [address] [place] [address] 462675 Physician Gastroenterology 09/20/23 Philip Dumont MD [address] [place] [address] 962825 Physician Ophthalmology 09/22/23 Meredith Carrera PA-C 909 [place] [address] Assigned Gastroenterology Provider 11/01/23 Neil Kent MD [address] [place] [address] Dermatology 11/02/23 [place] [address] [address] Neurological Surgery 12/26/23 Audrey Waite PA-C 500 [place] [address] Physician Hris Specialist Dermatology 02/28/24 Valery Veronica PA-C [address] [place] [address] Physician Hris Specialist Dermatology 04/10/24 documented as of this encounter
[2024-05-27 08:49] LABS: Basophils Absolute Auto 0.02 K/uL (0.00-0.30); Basophils Percent Auto 0.3 % (0.0-3.0); Eosinophils Absolute Auto 0.34 K/uL (0.00-0.50); Eosinophils Percent Auto 5.5 % (0.0-7.0); Hematocrit 38.3 % (33.0-51.0); Hemoglobin* 12.3 gm/dL (12.0-16.0); Immature Granulocytes Abs Auto 0.01 K/uL (0.00-0.30); Immature Granulocytes Pct Auto 0.2 %; Lymphocytes Absolute Auto 1.88 K/uL (0.90-2.90); Lymphocytes Percent Auto 30.4 % (20-44); Mean Corpuscular HGB Conc 32 gm/dL (32-36); Mean Corpuscular Hemoglobin 26 pg (26-34); Mean Corpuscular Volume 82 fL (80-100); Monocytes Percent Auto 8.6 % (0.0-11.0); Neutrophils Absolute Auto 3.41 K/uL (1.7-7.0); Platelet Count* 227 K/uL (140-440); RDW Coefficient of Variation % 12.6 % (11.5-15.5); Red Blood Count 4.69 m/uL (4.00-5.20); White Blood Count* 6.19 K/uL (4.50-11.00)
--- OUTSIDE RECORDS SUMMARY | 2024-05-27 08:49 | XMS_ITS | Encounter Summary ---
Author Organization [facility] Address [address] [place] [address] Care Team Providers Care Accounts Payable Technician Name Role Phone Diana Desir [facility] Unavailable Rain Galaviz-C Unavailable [phone] Tavia Wyatt MD Unavailable Unavailable Erica Farrell APRN HAND CROCHETER Unavailable Rich Barrett MD Unavailable Neil Kent MD Unavailable ThangDiana [facility] Unavailable Livan Sharif MD Unavailable Catherine Cm MD Unavailable + Valery Veronica-C Unavailable [phone] Brea Quinn POST ACUTE CARE REGISTERED NURSE HAND CROCHETER Unavailable [phone] Brea Quinn POST ACUTE CARE REGISTERED NURSE HAND CROCHETER Unavailable Jose Francisco Johnson MD Unavailable Sydnie Martinez RN Unavailable Unavailable Alfonso Renteria MD Unavailable + [phone] Esha Grimm PA-C Primary Care Provider [phone] Cheng Todd PA-C Unavailable Radha Lomeli APRN HAND CROCHETER Unavailable Jelena David OD Unavailable Pao Joseph RN Unavailable Unavailable Esha Grimm PA-C Unavailable [phone] Valery Veronica PA-C Unavailable [phone] Rey aTy MD Unavailable Rocky Zepeda DO Unavailable Philip Dumont MD Unavailable Meredith Carrera PA-C Unavailable Neil Kent MD Unavailable Juan Pablo Emmanuel MD Unavailable Audrey Waite PA-C Unavailable [phone] Valery Veronica PA-C Unavailable Encounter Details Date Type Department Care Team (Late st Contact Info) Description 06/17/2023 MyC Medical Advice Adam [facility] Epilepsy Care [address], [address] [place] [address] Alfonso Renteria MD [address] [facility] [address] [place] [address] Social History Tobacco Use Types [...] Answer Date Recorded PHQ-2 Score 0 06/20/2023 [facility] - [...] at this level? 30 min 03/10/2023 [place] Depression Scale Answer Date Recorded [place] Depression Score 5 01/14/2021 Last EPDS Self [...] PM CDT Legal Sex Female 4:13 AM TONGSMAN Gender Identity Female 03/02/2021 5:45 PM CDT Sexual Orientation Straight 02/28/2020 12 :51 AM CDT documented as of this encounter Miscellaneous Notes * Telephone Encounter - Lulu Xie - 06/28/2023 12:08 PM CST Patient calling to follow up on the below iPAYst message. Patient continues to have a lot of dizzyness and neck pain. SMAN documented in this encounter Plan of Treatment Upcoming Encounters Date Type Department Care Team (Late st Contact Info) Description 05/31/2024 8:40 AM TONGSMAN Therapy Visit [facility] Rehabilitation Services [address] [place] [address] Ingris Thompson, PT [facility] [address] [place] [address] [address] [place] [address] 05/31/2024 3:30 PM TONGSMAN Office Visit [facility] Specialty [address] [place] [phone] Audrey Díaz, Herminia Koo MD [address] [place] [address] 06/04/2024 3:30 PM TONGSMAN Office Visit [facility] [address] [facility] [address] [place] [phone] Jelena David, [address] [facility] [place] [address] 06/11/2024 10:30 AM TONGSMAN Appointment [facility] Respiratory Therapy [address] [place] [phone] Spec, Nurse Only Med 06/18/2024 2:50 PM TONGSMAN Therapy Visit [facility] Rehabilitation [facility] [address] [place] [phone] Ingris Thompson, PT [facility] [address] [place] [address] [address] [place] [address] 06/21/2024 2:00 PM TONGSMAN Office Visit [facility] Neurology Clinics - [place] [address] [place] [address], [address] [place] [phone] [place] [address] [place] [address] Johnny Penn MD [address] [facility] [place] [address] 06/25/2024 8:30 AM TONGSMAN Office Visit [facility] [address] [place] [address] Valery Veronica PA-C [address] [place] [address] 11/28/2024 7:45 AM CDT Virtual Visit [facility] Gastroenterology [address] 4th [place] [phone] Meredith Carrera PA-C [address] [place] [address]225 documented as of this encounter Visit Diagnoses Not on filedocumented in this encounter Additional Health Concerns Infection Onset Date Last Indicated Resolved Time Rule Out COVID-19 12/26/2023 12/26/2023 12/26/2023 9:50 AM CDT Rule Out COVID-19 04/09/2024 04/09/2024 04/10/2024 6:48 PM CDT Assessment Noted Time PHQ-9 Depression Total Score: 6 05/16/20 23 9:29 AM TONGSMAN documented as of this encounter Care Teams Accounts Payable Technician Relationship Specialty Start Date End Date Esha Grimm PA-C [address] [place] [address] PCP - General Family Medicine 05/04/23 Diana Desir, [facility] [address] [facility] [address] Pharmacist Pharmacist 04/17/21 Rain Galaviz PA-C [address] [place] [address] [address] [facility] [place] [address] Physician Multi Sensor Operator Dermatology 04/28/21 Tavia Wyatt MD [address] [place] [address] [address] [place] [address] Dermatology 07/14/21 Erica Farrell APRN HAND CROCHETER [address] [place], [place] 28[address] Nurse Practitioner Cardiovascular Disease 09/09/21 Rich Barrett MD [address] [facility] [address] [place], [place] [address] Physician Ophthalmology 01/21/22 Neil Kent MD 500 [place] [address] Dermatology 02/24/22 [facility] [address] [place], [place] 896326 Assigned MTM Pharmacist 04/07/22 Livna Sharif MD [address] [address] Cardiovascular Disease 05/14/22 Catherine Cm MD [address] [address] Cardiovascular Disease 07/21/22 Valery Veronica, PA-C [address] [place] [address] 297065 Physician Multi Sensor Operator Dermatology 07/21/22 Brea Quinn APRN HAND CROCHETER 500 [place] [address] Nurse Practitioner Dermatology 09/21/22 Brea Quinn, ARLENE HAND CROCHETER [address] [facility] [place] [address] Assigned Surgical Provider 10/09/22 05/01/24 [place] [address] [facility] [address] [place] [address] Assigned Musculoskeletal Provider 10/09/22 05/01/24 Sydnie Martinez RN Personal Advocate & Liaison (PAL) Family Medicine 03/28/23 07/31/23 Alfonso Renteria MD [address] [facility] 200 [place] [address] Assigned Neuroscience Provider 04/02/23 Cheng Todd PA-C [address] [place] [phone] Assigned PCP 04/30/23 07/15/23 Radha Lomeli APRN HAND CROCHETER [address] [facility] [address] [place] [address] Assigned Heart and Vascular Provider 05/28/23 Jelena David OD [address] [facility] [place] [address] Ophthalmology 06/15/23 Pao Joseph, VJ Personal Advocate & Liaison (PAL) Nurse 08/01/23 11/07/23 Esha Grimm PAUcheC [address] [place] [phone] Assigned PCP 07/16/23 Valery Veronica PA-C 9 [place], [place] 295[address] Physician Multi Sensor Operator Dermatology 09/19/23 Rey Tay MD [address] [place] [address]645 MD Gastroenterology 09/20/23 Rocky Zepeda DO [address] [place] [address] Physician Gastroenterology 09/20/23 Philip Dumont MD [address] [place] [address] 227015 Physician Ophthalmology 09/22/23 Meredith Carrera PA-C 9 [place], [place] 279375 Assigned Gastroenterology Provider 11/01/23 Neil Kent MD [address] [address] Dermatology 11/02/23 [place] [address] [address] [facility] [place] [address] Neurological Surgery 12/26/23 Audrey Waite PA-C 500 [place] [address] Physician Multi Sensor Operator Dermatology 02/28/24 Valery Veronica PA-C [address] [facility] [place] [address] Physician Multi Sensor Operator Dermatology 04/10/24 documented as of this encounter
--- OUTSIDE RECORDS SUMMARY | 2024-05-27 08:49 | XMS_ITS | Encounter Summary ---
Author Organization [facility] Address [address] [place] [address] Care Team Providers Care Instrument/Control Technician Name Role Phone Marija Edgar APRN PROSTHODONTIST/OWNER Primary Care Provider + Marija Edgar APRN PROSTHODONTIST/OWNER Unavailable [phone] Keisha Dotson MD Unavailable [phone] Diana Desir [facility] Unavailable [phone] Rain Galaviz PA-C Unavailable Tavia Wyatt MD Unavailable Unavailable Erica Farrell APRN PROSTHODONTIST/OWNER Unavailable Rich Barrett MD Unavailable Neil Kent MD Unavailable Diana Desir [facility] Unavailable Livan Sharif MD Unavailable Catherine Cm MD Unavailable + Valery Veronica PA-C Unavailable [phone] Brea Quinn APRN PROSTHODONTIST/OWNER Unavailable Brea Quinn STOVE CARRIAGE OPERATOR PROSTHODONTIST/OWNER Unavailable [phone] Jose Francisco Johnson MD Unavailable Catherine Cm MD Unavailable + Sydnie Martinez RN Unavailable Unavailable Alfonso Renteria MD Unavailable [phone] Esha Grimm PA-C Primary Care Provider Cheng Todd PA-C Unavailable Armani Radha Stovall ARLENE PROSTHODONTIST/OWNER Unavailable Jelena David OD Unavailable Pao Joseph RN Unavailable Unavailable Esha Grimm PA-C Unavailable [phone] Valery Veronica PA-C Unavailable Rey Tay MD Unavailable Rocky Zepeda DO Unavailable Philip Dumont MD Unavailable Merediht Carrera PA-C Unavailable [phone] Neil Kent MD Unavailable Juan Pablo Emmanuel MD Unavailable Audrey Waite PA-C Unavailable Valery Veronica PA-C Unavailable [phone] Encounter Details Date Type Department Care Team (Late st Contact Info) Description 03/29/2023 MyC Medical Advice [address] [address] Diana Desir, [facility] [address] [place] [address] Social History Tobacco Use Types [...] you attend [facility] or [facility]? 1 to 4 times [...] Answer Date Recorded PHQ-2 Score 0 03/10/2023 [facility] Occupat ional [facility] - Occupational Stress [...] slept in a longterm (including now)? No 03/10/2023 [place] Depression Scale Answer Date Recorded [place] Depression Score 5 01/14/2021 Last EPDS Self Harm Result Not on file 01/14 Education Answer Date Recorded What is the highest level of school you have completed or the highest degree you have received? 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 CARGO AGENT Gender Identity Female 03/02/2021 5:45 PM CDT [...] st Contact Info) Description 05/31/2024 8:40 AM CARGO AGENT Therapy Visit [facility] [address] [place] [address] [address] [place] [address] [facility] [address] [place] [address] 05/31/2024 3:30 PM CARGO AGENT Office Visit [facility] [address] [address] Audrey Díaz, Herminia Koo MD [address] [place] [address] 06/04/2024 3:30 PM CARGO AGENT Office Visit [address] [place] [phone] Jelena David, [address] [place] [address] 06/11/2024 10:30 AM CARGO AGENT Appointment [facility] Respiratory Therapy [address] [place] [phone] Spec, Nurse Only Med 06/18/2024 2:50 PM CARGO AGENT Therapy Visit [facility] [address] [place] [address] [address] [place] [phone] Ingris Thompson, PT [address] [address] 06/21/2024 2:00 PM CARGO AGENT Office Visit [facility] Neurology Clinics [address], [address] [facility] [place] [phone] [place] [address] [place], [place] 27[address] Johnny Penn MD [address] [place], [place] [address] 06/25/2024 8:30 AM CARGO AGENT Office Visit [address] [address] Valery Veronica PA-C [address] [place] [address] 11/28/2024 7:45 AM CDT Virtual Visit [facility] Gastroenterology Clinic [address] [place] [phone] Meredith Carrera PA-C [address] [place] [address]75215 documented as of this encounter Visit Diagnoses Not on filedocumented in this encounter Additional Health Concerns Infection Onset Date Last Indicated Resolved Time Rule Out COVID-19 12/26/2023 12/26/2023 12/26/2023 9:50 AM CDT Rule Out COVID-19 04/09/2024 04/09/2024 04/10/2024 6:48 PM CDT Assessment Noted Time PHQ-9 Depression Total Score: 5 03/10/20 6:49 AM CDT documented as of this encounter Care Teams Instrument/Control Technician Relationship Specialty Start Date End Date Marija Edgar APRN CNP PCP - General Nurse Practitioner 04/30/20 04/14/23 Esha Grmim PA-C [address] [place] [address] PCP - General Family Medicine 05/04/23 Marija Edgar APRN PROSTHODONTIST/OWNER Assigned PCP 06/08/20 04/29/23 Keisha Dotson MD [address] [place] [address] Assigned Neuroscience Provider 06/04/20 04/01/23 [facility] [address] [place] [address] Pharmacist Pharmacist 04/17/21 Rain Galaviz PA-C [address] [place] [address] [address] [place] [address] Physician Nurse Coordinator Dermatology 04/28/21 Tavia Wyatt MD [address] [place] [address] [address] [facility] [facility] [address] Dermatology 07/14/21 Erica Farrell APRN PROSTHODONTIST/OWNER [address] [facility] [address] [place] [address] Nurse Practitioner Cardiovascular Disease 09/09/21 Rich Barrett MD [address] [phone] Physician Ophthalmology 01/21/22 Neil Kent MD [address] [place] [address] [phone] Dermatology 02/24/22 Diana Desir, [facility] [address] [place], [place] [address]6 Assigned [place] Pharmacist 04/07/22 Livan Sharif MD [address] [place] [address] Cardiovascular Disease 05/14/22 Catherine Cm MD [address] [place] [address] Cardiovascular Disease 07/21/22 Valery Veronica, PA-C [address] [place] [address]185 Physician Nurse Coordinator Dermatology 07/21/22 Brea Quinn APRN PROSTHODONTIST/OWNER 500 [place], [place] [address] Nurse Practitioner Dermatology 09/21/22 Brea Quinn APRN PROSTHODONTIST/OWNER [address] [place] [address] Assigned Surgical Provider 10/09/22 05/01/24 [place] [address] [place] [address] Assigned Musculoskeletal Provider 10/09/22 05/01/24 Catherine Cm MD [address] [place] 615545 Assigned Heart and Vascular Provider 11/13/22 05/27/23 Sydnie Martinez, RN Personal Advocate & Liaison (PAL) Family Medicine 03/28/23 07/31/23 Alfonso Renteria MD [address] [facility] [address] [place] [address] Assigned Neuroscience Provider 04/02/23 Cheng Todd PA-C [address] [place] [address] [phone] Assigned PCP 04/30/23 07/15/23 Radha Lomeli APRN PROSTHODONTIST/OWNER 6[address] [facility] [address] [place], [place] [address] Assigned Heart and Vascular Provider 05/28/23 Jelena David OD [address] [facility] [place] [address] Ophthalmology 06/15/23 Pao Joseph, VJ Personal Advocate & Liaison (PAL) Nurse 08/01/23 11/07/23 Esha Grimm PAUcheC [address] [place] [phone] Assigned PCP 07/16/23 Valery Veronica PA-C [address] [place] [address] 869235 Physician Nurse Coordinator Dermatology 09/19/23 Rey Tay MD [address] [place] [address] Gastroenterology 09/20/23 Rocky Zepeda DO 500 [place] [address] Physician Gastroenterology 09/20/23 Philip Dumont MD 516 [place] [address] Physician Ophthalmology 09/22/23 Meredith Carrera PA-C 909 [place] [address] Assigned Gastroenterology Provider 11/01/23 Neil Kent MD [address] [address] Dermatology 11/02/23 [place] [address] [place] [address] Neurological Surgery 12/26/23 Audrey Waite PA-C 500 [place] [address] Physician Nurse Coordinator Dermatology 02/28/24 Valery Veronica PA-C [address] [place] [address] Physician Nurse Coordinator Dermatology 04/10/24 documented as of this encounter
--- OUTSIDE RECORDS SUMMARY | 2024-05-27 08:49 | XMS_ITS | Encounter Summary ---
Author Organization [place] Address [address] [place] [address] Care Team Providers Care Religious Educator Name Role Phone Diana Desir [facility] Unavailable Rain Galaviz-C Unavailable Tavia Wyatt MD Unavailable Unavailable Erica Farrell APRN EXECUTIVE DIRECTOR [employer] Unavailable Rich Barrett MD Unavailable Neil Kent MD Unavailable ThangDiana [facility] Unavailable Livan Sharif MD Unavailable Catherine Cm MD Unavailable + Valery Veronica-C Unavailable [phone] Brea Quinn TIMBER SETTER EXECUTIVE DIRECTOR [employer] Unavailable [phone] Brea Quinn TIMBER SETTER EXECUTIVE DIRECTOR [employer] Unavailable Jose Francisco Johnson MD Unavailable Sydnie Martinez RN Unavailable Unavailable Alfonso Renteria MD Unavailable + [phone] Esha Grimm PA-C Primary Care Provider Cheng Todd PA-C Unavailable [phone] Radha Lomeli APRN EXECUTIVE DIRECTOR [employer] Unavailable Jelena David OD Unavailable [phone] Pao Joseph RN Unavailable Unavailable Esha Grimm PA-C Unavailable [phone] Valery Veronica PA-C Unavailable Rey Tay MD Unavailable Rocky Zepeda DO Unavailable Philip Dumont MD Unavailable [phone] Meredith Carrera PA-C Unavailable Neil Kent MD Unavailable Juan Pablo Emmanuel MD Unavailable Audrey Waite PA-C Unavailable Valery Veronica PA-C Unavailable [phone] Encounter Details Date Type Department Care Team (Late st Contact Info) Description 07/06/2023 [facility]C Medical [facility]ice [facility] [place] [facility] [address] [facility], [address] [place] [address] Alfonso Renteria MD [address] [facility] [address] [place] [address] Social History Tobacco Use Types [...] an overnight care home, or couch-surfing.) Yes 06/20/2023 Are you [...] PM CDT Legal Sex Female 4:13 AM FIRST AID DIRECTOR Gender Identity Female 03/02/2021 5:45 PM CDT Sexual Orientation Straight 02/28/2020 12 :51 AM CDT documented as of this encounter Miscellaneous Notes * Telephone Encounter - Genny Hyman PA-C - 07/07/2023 11:13 AM FIRST AID DIRECTOR No lesions/abnormal findings on MRI to account for possible seizure activity. Last office note indicated: If repeat MRI was normal would reduce levetiracetam to 250 mg per day for two weeks and then stop. Ok to proceed with this plan. Call if questions, concerns, or worsening of symptoms with discontinuation of the medication Genny Hyman PA-C T AID DIRECTOR documented in this encounter Plan of Treatment Upcoming Encounters Date Type Department Care Team (Late st Contact Info) Description 05/31/2024 8:40 AM FIRST AID DIRECTOR Therapy Visit [facility] [address] [place] [address] [address] [place] [phone] Ingris Thompson, PT [address] [address] 05/31/2024 3:30 PM FIRST AID DIRECTOR Office Visit [place] [address] [place] [phone] Audrey Díaz, Herminia Koo MD [facility]5 [place], [place] [phone] 06/04/2024 3:30 PM FIRST AID DIRECTOR Office Visit [facility] [address] [facility] [address] [place] [phone] Jelena David, [address] [place] [address] [place] [address] 06/11/2024 10:30 AM FIRST AID DIRECTOR Appointment [facility] Respiratory Therapy [address] [place] [phone] Spec, Nurse Only Med 06/18/2024 2:50 PM FIRST AID DIRECTOR Therapy Visit [address] [place] [address] Ingris Thompson, PT [address] [address] 06/21/2024 2:00 PM FIRST AID DIRECTOR Office Visit [facility] [address], [address] [place] [phone] [place] [address] [place] [id number] Johnny Penn MD [address] [place], [place] [address] 06/25/2024 8:30 AM FIRST AID DIRECTOR Office Visit [facility] 830 [place] [phone] Valery Veronica PA-C [address] [place] [address] 013935 11/28/2024 7:45 AM CDT Virtual Visit [facility] Gastroenterology Clinic [address] [phone] Meredith Carrera PA-C [address] [place] [address] 774565 documented as of this encounter Visit Diagnoses Not on filedocumented in this encounter Additional Health Concerns Infection Onset Date Last Indicated Resolved Time Rule Out COVID-19 12/26/2023 12/26/2023 12/26/2023 9:50 AM CDT Rule Out COVID-19 04/09/2024 04/09/2024 04/10/2024 6:48 PM CDT Assessment Noted Time PHQ-9 Depression Total Score: 4 06/20/20 23 8:40 AM FIRST AID DIRECTOR documented as of this encounter Care Teams Religious Educator Relationship Specialty Start Date End Date Esha Grimm PA-C [address] [place] [address] PCP - General Family Medicine 05/04/23 Diana Desir, [facility] [address] [place] [address] Pharmacist Pharmacist 04/17/21 Rain Galaviz PA-C [address] [place] [address] [address] [place] [address] Physician Senior It Business Analyst Dermatology 04/28/21 Tavia Wyatt MD [address] [place] [address] [place] [address] Dermatology 07/14/21 Erica Farrell APRN EXECUTIVE DIRECTOR [employer] [address] [place] [address] Nurse Practitioner Cardiovascular Disease 09/09/21 Rich Barrett MD [address] [place] [address] 966895 Physician Ophthalmology 01/21/22 Neil Kent MD [address] [place] [address] 831015 Dermatology 02/24/22 Diana Desir, [facility] [address] [place] [address] 275236 Assigned [place] Pharmacist 04/07/22 Livan Sharif MD [address], [facility]00 [place] [address] Cardiovascular Disease 05/14/22 Catherine Cm MD [address] [facility]00 [place] 107[address] Cardiovascular Disease 07/21/22 Valery Veronica, PA-C [address] [place] [address]885 Physician Senior It Business Analyst Dermatology 07/21/22 Brea Quinn APRN EXECUTIVE DIRECTOR [employer] [address] [place], [place] 391215 Nurse Practitioner Dermatology 09/21/22 Brea Quinn APRN EXECUTIVE DIRECTOR [employer] [address] [facility] [place] 26[address]62 Assigned Surgical Provider 10/09/22 05/01/24 [place] [address] [address] [facility] [address] [place] [address] Assigned Musculoskeletal Provider 10/09/22 05/01/24 Sydnie Martinez RN Personal Advocate & Liaison (PAL) Family Medicine 03/28/23 07/31/23 Alfonso Renteria MD [address] [facility] 200 [place], [place] 283916 Assigned Neuroscience Provider 04/02/23 Cheng Todd PA-C [address] [place] [address] [phone] Assigned PCP 04/30/23 07/15/23 Radha Lomeli, ARLENE EXECUTIVE DIRECTOR [employer] [address] [facility] [address] [place] [address] Assigned Heart and Vascular Provider 05/28/23 Jelena David OD [address] [place] [address] Ophthalmology 06/15/23 Pao Joseph, RN Personal Advocate & Liaison (PAL) Nurse 08/01/23 11/07/23 Esha Grimm PA-C [address] [place] [phone] Assigned PCP 07/16/23 Valery Veronica PA-C [address] [place] [address] 503625 Physician Senior It Business Analyst Dermatology 09/19/23 Rey Tay MD [address] [place] [address] 413065 MD Gastroenterology 09/20/23 Rocky Zepeda DO [address] [place] [address] 694775 Physician Gastroenterology 09/20/23 Philip Dumont MD [address] [place] [address] 919285 Physician Ophthalmology 09/22/23 Meredith Carrera PA-C [address] [place] [address] 050795 Assigned Gastroenterology Provider 11/01/23 Neil Kent MD [address] [address] Dermatology 11/02/23 [place] [address] [place] [address] Neurological Surgery 12/26/23 Audrey Waite PA-C 500 [place] [address] Physician Senior It Business Analyst Dermatology 02/28/24 Valery Veronica PA-C [address] [place] [address] Physician Senior It Business Analyst Dermatology 04/10/24 documented as of this encounter
--- OUTSIDE RECORDS SUMMARY | 2024-05-27 08:49 | XMS_ITS | Encounter Summary ---
Author Organization [place] Address [address] [place] [address] Care Team Providers Care Court Crier Name Role Phone Lita Oseguera Unavailable Unavailable Marija Edgar APRN COMPUTED TOMOGRAPHY SCANNER OPERATOR Primary Care Provider + Marija Edgar APRN COMPUTED TOMOGRAPHY SCANNER OPERATOR Unavailable [phone] Keisha Dotson MD Unavailable [phone] [facility] Unavailable [phone] Rain Galaviz PA-C Unavailable Tavia Wyatt MD Unavailable Unavailable Erica Farrell APRN COMPUTED TOMOGRAPHY SCANNER OPERATOR Unavailable Rich Barrett MD Unavailable [phone] Neil Kent MD Unavailable Diana Desir [facility] Unavailable Livan Sharif MD Unavailable Catherine Cm MD Unavailable + Valery Veronica PA-C Unavailable [phone] Brea Quinn APRN COMPUTED TOMOGRAPHY SCANNER OPERATOR Unavailable Brea Quinn SANDING SUPERVISOR COMPUTED TOMOGRAPHY SCANNER OPERATOR Unavailable [phone] Jose Francisco Johnson MD Unavailable Catherine Cm MD Unavailable + Sydnie Martinez RN Unavailable Unavailable Alfonso Renteria MD Unavailable [phone] Esha Grimm PA-C Primary Care Provider Cheng Todd PA-C Unavailable Radah Lomeli APRN COMPUTED TOMOGRAPHY SCANNER OPERATOR Unavailable Jelena David OD Unavailable Pao Joseph RN Unavailable Unavailable Esha Grimm PA-C Unavailable [phone] Valery Veronica PA-C Unavailable Rey Tay MD Unavailable Rocky Zepeda DO Unavailable Philip Dumont MD Unavailable [phone] Meredith Carrera PA-C Unavailable Neil Kent MD Unavailable Juan Pablo Emmanuel MD Unavailable Audrey Waite PA-C Unavailable [phone] JeremíasValery damon PA-C Unavailable Encounter Details Date Type Department Care Team (Late st Contact Info) Description 01/10/2023 MyC Medical Advice [facility] [address] [place] [phone] Lauren Claudio PA-C [address] [place] [address] Social History Tobacco Use Types [...] How often do you attend uatsdin or adventism serv ices? Never 09/22/2021 Do [...] Answer Date Recorded PHQ-2 Score 1 10/11/2022 [facility] [place] of Occupat ional Health - Occupational Stress [...] health care facility (including now)? No 09/22/2021 [place] Depression [...] PM CDT Legal Sex Female 4:13 AM DISTRIBUTION CENTER SUPERVISOR Gender Identity Female 03/02/2021 5:45 PM [...] - 02/03/2023 11:52 AM CDT Incoming call Trial Court Judge: [place] [facility] referral following up on [facility] information that is needed to be faxed at [phone] Erica David MA documented in this encounter Plan of Treatment Upcoming Encounters Date Type Department Care Team (Late st Contact Info) Description 05/31/2024 8:40 AM DISTRIBUTION CENTER SUPERVISOR Therapy Visit [facility] [address] [place] [phone] Ingris Thompson, PT [facility] [address] [place] [address] 05/31/2024 3:30 PM DISTRIBUTION CENTER SUPERVISOR Office Visit [facility] [address] [phone] Audrey Díaz, Herminia Koo MD [address] [place] [address] [phone] 06/04/2024 3:30 PM DISTRIBUTION CENTER SUPERVISOR Office Visit [facility] [place] [address] [facility] [address] [place] [phone] Jelena David, OD [address] [facility] [place] [address] 06/11/2024 10:30 AM DISTRIBUTION CENTER SUPERVISOR Appointment [facility] Respiratory Therapy [address] [place] [phone] Spec, Nurse Only Med 06/18/2024 2:50 PM DISTRIBUTION CENTER SUPERVISOR Therapy Visit [facility] [address] [place] [phone] Ingris Thompson, PT [facility] 6 [facility] 106 [place], [place] [address] 06/21/2024 2:00 PM DISTRIBUTION CENTER SUPERVISOR Office Visit [facility] [place] [address] [facility], [address] [place] [phone] [place] [address] [place] [place] [address] Johnny Penn MD [address] [facility] [place] [address] 06/25/2024 8:30 AM DISTRIBUTION CENTER SUPERVISOR Office Visit [address] [phone] Valery Veronica, PAUcheC [address] [place] [address] 11/28/2024 7:45 AM CDT Virtual Visit [facility] Gastroenterology [address] [place] [phone] Meredith Carrera PA-C [address] [place] [address] documented as of this encounter Visit Diagnoses [...] as of this encounter Care Teams Court Crier Relationship Specialty Start Date End Date Marija Edgar APRN COMPUTED TOMOGRAPHY SCANNER OPERATOR PCP - General Nurse Practitioner 04/30/20 04/14/23 Esha Grimm PA-C [address] [place] [phone] PCP - General Family Medicine 05/04/23 Lita Oseguera Personal Advocate & Liaison (PAL) 02/28/20 03/27/23 Marija Edgar APRN COMPUTED TOMOGRAPHY SCANNER OPERATOR Assigned PCP 06/08/20 04/29/23 Keisha Dotson MD [address] [place] [address] Assigned Neuroscience Provider 06/04/20 04/01/[address] [facility] 3033 [place] [address] Pharmacist Pharmacist 04/17/21 Rain Galaviz PA-C [address] [place] [address] [address] [place] [address] Physician Edge Banding Machine Offbearer Dermatology 04/28/21 Tavia Wyatt MD [address] [place] [address] DR [facility] [address] Dermatology 07/14/21 Erica Farrell APRN COMPUTED TOMOGRAPHY SCANNER OPERATOR [address] [place] [address] Nurse Practitioner Cardiovascular Disease 09/09/21 Rich Barrett MD [address] [place] [address] [address] [place], [place] 9[address]85 Physician Ophthalmology 01/21/22 Neil Kent MD 500 [place], [place] [address] Dermatology 02/24/22 [facility] 3033 [place] [address] Assigned MTM Pharmacist 04/07/22 Livan Sharif MD [address] [place] [address] Cardiovascular Disease 05/14/22 Catherine Cm MD [address] [place] 287165 Cardiovascular Disease 07/21/22 Valery Veronica PA-C [address] [place], [place] 183195 Physician Edge Banding Machine Offbearer Dermatology 07/21/22 Brea Quinn APRN COMPUTED TOMOGRAPHY SCANNER OPERATOR 500 [place], [place] 0085[address] Nurse Practitioner Dermatology 09/21/22 Brea Quinn APRN COMPUTED TOMOGRAPHY SCANNER OPERATOR [address] [place], [place] 017942 Assigned Surgical Provider 10/09/22 05/01/24 [place] [address] [facility] 300 [place], [place] 488137 Assigned Musculoskeletal Provider 10/09/22 05/01/24 Catherine Cm MD [address] [facility] [address] [place] [address] Assigned Heart and Vascular Provider 11/13/22 05/27/23 Sydnie Martinez RN Personal Advocate & Liaison (PAL) Family Medicine 03/28/23 07/31/23 Alfonso Renteria MD [address] [facility] 200 [place], [place] 056826 Assigned Neuroscience Provider 04/02/23 Cheng Todd PA-C [address] [place] [address] Assigned PCP 04/30/23 07/15/23 Radha Lomeli APRN COMPUTED TOMOGRAPHY SCANNER OPERATOR [address] [facility] [address] [place], [place] 150[address] Assigned Heart and Vascular Provider 05/28/23 Jelena David OD [address] [place] [address] MD Ophthalmology 06/15/23 Pao Joseph, VJ Personal Advocate & Liaison (PAL) Nurse 08/01/23 11/07/23 Esha Grimm PA-C [address] [place] [address] Assigned PCP 07/16/23 Valery Veronica PA-C [address] [place] [address] 093965 Physician Edge Banding Machine Offbearer Dermatology 09/19/23 Rey Tay MD [address] [place] [address] 287705 Gastroenterology 09/20/23 Rocky Zepeda DO [address] [place] [address] 049965 Physician Gastroenterology 09/20/23 Philip Dumont MD [address] [place] [address] 006725 Physician Ophthalmology 09/22/23 Meredith Carrera PA-C [address] [place] [address] Assigned Gastroenterology Provider 11/01/23 Neil Kent MD [address] [place] [address] Dermatology 11/02/23 [place] [address] [facility] [place] [address] Neurological Surgery 12/26/23 Audrey Waite PA-C [address] [place] [address] Physician Edge Banding Machine Offbearer Dermatology 02/28/24 Valery Veronica PA-C [address]558 [address] [place] [address] Physician Edge Banding Machine Offbearer Dermatology 04/10/24 documented as of this encounter
--- OUTSIDE RECORDS SUMMARY | 2024-05-27 08:49 | XMS_ITS | Encounter Summary ---
Author Organization [facility] Address [address] [place] [address] Care Team Providers Care Stone Fabricator Name Role Phone Diana Desir [facility] Unavailable Rain Galaviz-C Unavailable [phone] Tavia Wyatt MD Unavailable Unavailable Erica Farrell APRN FILM CREW MEMBER Unavailable Rich Barrett MD Unavailable Neil Kent MD Unavailable ThangDiana [facility] Unavailable Livan Sharif MD Unavailable Catherine Cm MD Unavailable + Valery Veronica-C Unavailable [phone] Brea Quinn WARDROBE MISTRESS FILM CREW MEMBER Unavailable Brea Quinn WARDROBE MISTRESS FILM CREW MEMBER Unavailable Jose Francisco Johnson MD Unavailable Sydnie Martinez RN Unavailable Unavailable Alfonso Renteria MD Unavailable + [phone] Esha Grimm PA-C Primary Care Provider Cheng Todd PA-C Unavailable Radha Lomeli APRN FILM CREW MEMBER Unavailable Jelena David OD Unavailable Pao Joseph RN Unavailable Unavailable Esha Grimm PA-C Unavailable [phone] Valery Veronica PA-C Unavailable Rey Tay MD Unavailable Rocky Zepeda DO Unavailable Philip Dumont MD Unavailable Meredith Carrera PA-C Unavailable Neil Kent MD Unavailable Juan Pablo Emmanuel MD Unavailable Audrey Waite PA-C Unavailable Valery Veronica PA-C Unavailable Encounter Details Date Type Department Care Team (Late st Contact Info) Description 07/06/2023 MyC Medical Advice [address] [address] Esha Grimm PA-C [id number] [place] [address] Social History Tobacco Use Types Packs/Day [...] week 03/10/2023 How often do you attend [facility] or confucianism services? 1 to 4 times [...] Date Recorded PHQ-2 Score 0 06/20/2023 [facility] of Occupat ional Health [...] at this level? 30 min 03/10/2023 Grand Tower Depression Scale Answer Date Recorded Grand [place] Depression Score 5 01/14/2021 Last EPDS [...] in an overnight intermediate, or couch-surfing.) Yes 06/20/2023 Are you worried [...] PM CDT Legal Sex Female 4:13 AM METAL SPINNER Gender Identity Female 03/02/2021 5:45 PM CDT Sexual Orientation Straight 02/28/2020 12 :51 AM CDT documented as of this encounter Plan of Treatment Upcoming Encounters Date Type Department Care Team (Late st Contact Info) Description 05/31/2024 8:40 AM METAL SPINNER Therapy Visit [facility] [address] [place] [phone] Ingris Thompson, PT [facility] [address] [place] [address] 05/31/2024 3:30 PM METAL SPINNER Office Visit [facility] [address] [phone] Audrey Díaz, Herminia Koo MD [address] [place] [address] 06/04/2024 3:30 PM METAL SPINNER Office Visit [facility] [place] [address] [facility] [address] [place] [phone] Frankie Jelena Garcia, OD 3305 [facility] [place] [address] 06/11/2024 10:30 AM METAL SPINNER [facility]oint[address] [facility] Respiratory Therapy [address] [place] [phone] Spec, Nurse Only Med 06/18/2024 2:50 PM METAL SPINNER Therapy Visit [facility] [address] [place] [phone] Ingris Thompson, PT [facility] 516 [facility] 106 [place], [place] [address]535 06/21/2024 2:00 PM METAL SPINNER Office Visit [facility] [place] [address] [place] [address], [address] [place] [phone] [place] [address] [place] [address] Johnny Penn MD 54[address] [facility] [place] [address] 06/25/2024 8:30 AM METAL SPINNER Office Visit [address] [phone] Valery Veronica PAUcheC 909 [place] [address] 11/28/2024 7:45 AM CDT Virtual Visit [facility] [address] 4th [place] [phone] Meredith Carrera PA-C [address] [place] [address] documented as of this encounter Visit Diagnoses Not on filedocumented in this encounter Additional Health Concerns Infection Onset Date Last Indicated Resolved Time Rule Out COVID-19 12/26/2023 12/26/2023 12/26/2023 9:50 AM CDT Rule Out COVID-19 04/09/2024 04/09/2024 04/10/2024 6:48 PM CDT Assessment Noted Time PHQ-9 Depression Total Score: 4 06/20/20 23 8:40 AM METAL SPINNER documented as of this encounter Care Teams Stone Fabricator Relationship Specialty Start Date End Date Esha Grimm PA-C [address] [place] [phone] PCP - General Family Medicine 05/04/23 Diana Desir, [facility] [address] [place], [place] [address] Pharmacist Pharmacist 04/17/21 Rain Galaviz PA-C [address] [place] [address] [place] [address] Physician Physiology Teacher Dermatology 04/28/21 Tavia Wyatt MD [address] [place] [address] [place] [address] Dermatology 07/14/21 Erica Farrell APRN FILM CREW MEMBER 6405 [facility] [address] [place] [address] Nurse Practitioner Cardiovascular Disease 09/09/21 Rich Barrett MD 516 [facility] 9A [place], [place] 7[address]15 Physician Ophthalmology 01/21/22 Neil Kent MD 500 [place], [place] 677805 Dermatology 02/24/22 Diana Desir, [facility] [address] [place], [place] 652066 Assigned MTM Pharmacist 04/07/22 Livan Sharif MD [address] [address] [place], [place] 454565 Cardiovascular Disease 05/14/22 Catherine Cm MD [address] 1781700 [place], [place] 524295 Cardiovascular Disease 07/21/22 Valery Veronica, PA-C 909 [place], [place] 112205 Physician Physiology Teacher Dermatology 07/21/22 Brea Quinn APRN FILM CREW MEMBER 500 [place] [address] Nurse Practitioner Dermatology 09/21/22 Brea Quinn APRN FILM CREW MEMBER [address] [place] [address] [place] [address] Assigned Surgical Provider 10/09/22 05/01/24 [place] [address] [place] [address] Assigned Musculoskeletal Provider 10/09/22 05/01/24 Sydnie Martinez RN Personal Advocate & Liaison (PAL) Family Medicine 03/28/23 07/31/23 Alfonso Renteria MD 5775 [facility] 200 [place] [address] Assigned Neuroscience Provider 04/02/23 Cheng Todd PA-C [address] [place] [address] [id number] Assigned PCP 04/30/23 07/15/23 Radha Lomeli APRN FILM CREW MEMBER [address] 8[address]3500 [place] [address] Assigned Heart and Vascular Provider 05/28/23 Jelena David OD [address] [facility] [place] [address] Ophthalmology 06/15/23 Pao Joseph, VJ Personal Advocate & Liaison (PAL) Nurse 08/01/23 11/07/23 Esha Grimm PA-C [address] [place] [address]36[address]83 Assigned PCP 07/16/23 Valery Veronica PA-C 9 [place] [address] Physician Physiology Teacher Dermatology 09/19/23 Rey Tay MD 9 [place] [address] MD Gastroenterology 09/20/23 Rocky Zepeda DO 500 [place] [address] Physician Gastroenterology 09/20/23 Philip Dumont MD 6 [place] [address] Physician Ophthalmology 09/22/23 Meredith Carrera PA-C 909 [place] [address] Assigned Gastroenterology Provider 11/01/23 Neil Kent MD [address] [address] Dermatology 11/02/23 [place] [address] [place], [place] 946167 Neurological Surgery 12/26/23 Audrey Waite PA-C 500 [place] [address] Physician Physiology Teacher Dermatology 02/28/24 Valery Veronica PA-C 824987 [place], [place] [address] Physician Physiology Teacher Dermatology 04/10/24 documented as of this encounter
--- OUTSIDE RECORDS SUMMARY | 2024-05-27 08:49 | XMS_ITS | Encounter Summary ---
Author Organization [place] Address [address] [place] [address] Care Team Providers Care Marketing Content Manager Name Role Phone Lita Oseguera Unavailable Unavailable Marija Edgar APRN HARPOONER Primary Care Provider + Marija Edgar APRN HARPOONER Unavailable [phone] Keisha Dotson MD Unavailable [phone] Diana Desir [facility] Unavailable [phone] Rain Galaviz PA-C Unavailable Tavia Wyatt MD Unavailable Unavailable Erica Farrell APRN HARPOONER Unavailable Rich Barrett MD Unavailable [phone] Neil Kent MD Unavailable Diana Desir [facility] Unavailable Livan Sharif MD Unavailable Catherine Cm MD Unavailable + Valery Veronica PA-C Unavailable [phone] Brea Quinn APRN HARPOONER Unavailable Brea Quinn STACKER OPERATOR HARPOONER Unavailable [phone] Jose Francisco Johnson MD Unavailable Catherine Cm MD Unavailable + Sydnie Martinez RN Unavailable Unavailable Alfonso Renteria MD Unavailable [phone] Esha Grimm PA-C Primary Care Provider Cheng Todd PA-C Unavailable Radha Lomeli APRN HARPOONER Unavailable Jelena David OD Unavailable Pao Joseph RN Unavailable Unavailable Esha Grimm PA-C Unavailable [phone] Valery Veronica PA-C Unavailable Rey aTy MD Unavailable Rocky Zepeda DO Unavailable Philip Dumont MD Unavailable Meredith Carrera PA-C Unavailable Neil Kent MD Unavailable Juan Pablo Emmanuel MD Unavailable [phone] Audrey Waite PA-C Unavailable [phone] JeremíasValery damon PA-C Unavailable Encounter Details Date Type Department Care Team (Late st Contact Info) Description 01/28/2023 MyC Medical Advice [facility] [address] [place] [address] Margaret Rendon, RN Social History Tobacco Use [...] How often do you attend zoroastrianism or restorationist serv ices? Never 09/22/2021 Do [...] Answer Date Recorded PHQ-2 Score 1 10/11/2022 [facility] [place] of Occupat ional Health - Occupational Stress [...] in a residential (including now)? No 09/22/2021 Hermitage Depression Scale Answer Date Recorded Hermitage Depression Score 5 01/14/2021 Last EPDS Self Harm Result Not on file 01/14 Education Answer Date Recorded What is the highest level of school you have completed or the highest degree you have received? 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 EXPLOSIVE OPERATOR FUSE Gender Identity Female 03/02/2021 5:45 PM CDT [...] st Contact Info) Description 05/31/2024 8:40 AM EXPLOSIVE OPERATOR FUSE Therapy Visit [facility] [address] [facility] [address] [place] [address] [facility]gris Thompson[facility] PT [facility] [address] [place] [address] 05/31/2024 3:30 PM EXPLOSIVE OPERATOR FUSE Office Visit [facility] [address] [phone] Audrey Díaz, Herminia Koo MD [address] [place] [address] 06/04/2024 3:30 PM EXPLOSIVE OPERATOR FUSE Office Visit [address] [place] [phone] Jelena David, [address] [place] [address] 06/11/2024 10:30 AM EXPLOSIVE OPERATOR FUSE Appointment [facility] Res[facility] Therapy [address] [place] [phone] Spec, Nurse Only Med 06/18/2024 2:50 PM EXPLOSIVE OPERATOR FUSE Therapy Visit [facility] [address] [facility] [address] [place] [phone] Ingris Thompson, PT [address] [address] 06/21/2024 2:00 PM EXPLOSIVE OPERATOR FUSE Office Visit [facility] - [address], [address] [place] [phone] [place] [address] [facility] [place], [place] [address] Johnny Penn MD [address] [place] [address] 06/25/2024 8:30 AM EXPLOSIVE OPERATOR FUSE Office Visit [address] [phone] Valery Veronica PA-C [address] [place] [address] 031345 11/28/2024 7:45 AM CDT Virtual Visit [facility] [address] 4th [place] [phone] Meredith Carrera PA-C [address] [place] [address] 568465 documented as of this encounter Visit Diagnoses [...] documented as of this encounter Care Teams Marketing Content Manager Relationship Specialty Start Date End Date Marija Edgar APRN CNP PCP - General Nurse Practitioner 04/30/20 04/14/23 Esha Grimm PA-C [address] [facility] [place] [address] PCP - General Family Medicine 05/04/23 Lita Oseguera Personal Advocate & Liaison (PAL) 02/28/20 03/27/23 Marija Edgar APRN HARPOONER Assigned PCP 06/08/20 04/29/23 Keisha Dotson MD 909 [place], [place] 107365 Assigned Neuroscience Provider 06/04/20 04/01/23 Diana Desir, [facility] [address] [place], [place] [address]476 Pharmacist Pharmacist 04/17/21 Rain Galaviz PA-C [address] [place] [address] [address] [facility] [facility] [place] [address] Physician Room Service Associate Dermatology 04/28/21 Tavia Wyatt MD [address] [place] [address] [address] [facility] [place] [address] Dermatology 07/14/21 Erica Farrell APRN HARPOONER [address] [place] [address] Nurse Practitioner Cardiovascular Disease 09/09/21 Rich Barrett MD [address] [address] Physician Ophthalmology 01/21/22 Neil Kent MD 500 [place] [address] Dermatology 02/24/22 Diana Desir, [facility] 3033 [place] [address] Assigned [place] Pharmacist 04/07/22 Livan Sharif MD [address] [facility] [address] [place] [address] Cardiovascular Disease 05/14/22 Catherine Cm MD [address] [facility] [place] 7983[address] Cardiovascular Disease 07/21/22 Valery Veronica, PA-C 909 [place] [address] Physician Room Service Associate Dermatology 07/21/22 Brea Qiunn APRN HARPOONER 500 [place] [address] Nurse Practitioner Dermatology 09/21/22 Brea Quinn APRN HARPOONER [address] [place] [address] Assigned Surgical Provider 10/09/22 05/01/24 [place] [address] [address] Assigned Musculoskeletal Provider 10/09/22 05/01/24 Catherine Cm MD [address] [place] [address] Assigned Heart and Vascular Provider 11/13/22 05/27/23 Sydnie Martinez RN Personal Advocate & Liaison (PAL) Family Medicine 03/28/23 07/31/23 Alfonso Renteria MD 5775 [facility] [address] 200 [place] [address] Assigned Neuroscience Provider 04/02/23 Cheng Todd PA-C [address] [place] [address] [id number] Assigned PCP 04/30/23 07/15/23 Radha Lomeli APRN HARPOONER [address] [place] [address] Assigned Heart and Vascular Provider 05/28/23 Jelena David OD [address] [facility] [place] [address] Ophthalmology 06/15/23 Pao Joseph RN Personal Advocate & Liaison (PAL) Nurse 08/01/23 11/07/23 Esha Grimm PA-C [address] [place] [address] Assigned PCP 07/16/23 Valery Veronica PA-C [address] [place] [address] Physician Room Service Associate Dermatology 09/19/23 Rey Tay MD 909 [place] [address] MD Gastroenterology 09/20/23 Rocky Zepeda DO 500 [place] [address] Physician Gastroenterology 09/20/23 Philip Dumont MD 6 [place] [address] Physician Ophthalmology 09/22/23 Meredith Carrera PA-C 9 [place] [address] Assigned Gastroenterology Provider 11/01/23 Neil Kent MD [address] [address] Dermatology 11/02/23 [place] [address] [place] [address] Neurological Surgery 12/26/23 Audrey Waite PA-C 500 [place] [address] Physician Room Service Associate Dermatology 02/28/24 Valery Veronica PA-C 243688 99[place], [place] [address] Physician Room Service Associate Dermatology 04/10/24 documented as of this encounter
--- OUTSIDE RECORDS SUMMARY | 2024-05-27 08:49 | XMS_ITS | Encounter Summary ---
Author Organization [place] Address [address] [place] [address] Care Team Providers Care Inventory Control Planner Name Role Phone Diana Desir [facility] Unavailable [phone] Rain Galaviz PA-C Unavailable [phone] Tavia Wyatt MD Unavailable Unavailable Erica Farrell HEAVY EQUIPMENT OPERATING ENGINEER TRIM DIE MAKER Unavailable Rich Barrett MD Unavailable Neil Kent MD Unavailable ThangDiana [facility] Unavailable [phone] Livan Sharif MD Unavailable Catherine Cm MD Unavailable + Valery Veronica PA-C Unavailable [phone] Brea Quinn HEAVY EQUIPMENT OPERATING ENGINEER TRIM DIE MAKER Unavailable Brea Quinn HEAVY EQUIPMENT OPERATING ENGINEER TRIM DIE MAKER Unavailable Jose Francisco Johnson MD Unavailable Alfonso Renteria MD Unavailable + [phone] Esha Grimm PA-C Primary Care Provider Radha Lomeli HEAVY EQUIPMENT OPERATING ENGINEER TRIM DIE MAKER Unavailable [phone] Jelena David OD Unavailable Pao Joseph RN Unavailable Unavailable Esha Grimm PA-C Unavailable Valery Veronica PA-C Unavailable [phone] Rey Tay MD Unavailable Rocky Zepeda DO Unavailable Philip Dumont MD Unavailable [phone] Meredith Carrera PA-C Unavailable Neil Kent MD Unavailable Juan Pablo Emmanuel MD Unavailable [phone] Audrey Waite PA-C Unavailable [phone] Valery Veronica PA-C Unavailable [phone] Reason for Visit * Reason Onset Date Comments Outreach 08/01/2023 Encounter Details Date Type Department Care Team (Late st Contact Info) Description 08/01/2023 [facility] Medical Advice [facility] [address] [place] [address] Esha Grimm PAUcheC [address] [place] [address] Outreach Social History Tobacco Use Types [...] do you attend [facility] or anglican services? 1 to 4 [...] Score 0 06/20/2023 [facility] of Occupat ional Health [...] exercise at this level? 30 min 03/10/2023 Guston Depression Scale Answer Date Recorded Guston Depression Score 5 01/14/2021 Last EPDS Self [...] PM CDT Legal Sex Female 4:13 AM COMPRESSED GAS PLANT WORKER Gender Identity Female 03/02/2021 5:45 PM CDT Sexual Orientation Straight 02/28/2020 12 :51 AM CDT documented as of this encounter Miscellaneous Notes * Telephone Encounter - Pao Joseph RN - 08/01/2023 2:31 PM CST Esha Grimm PA-C- ANGEL LUIS. See pt's Teraneticst messages. Routed to PCP Pao Marcos RN PAL (Patient Advocate Liaison) [facility] RESSED GAS PLANT WORKER documented in this encounter Plan of Treatment Upcoming Encounters Date Type Department Care Team (Late st Contact Info) Description 05/31/2024 8:40 AM COMPRESSED GAS PLANT WORKER Therapy Visit [facility] Rehabilitation Services [address] [place] [address] Ingris Thompson, PT [facility] [address] [place] [address] 05/31/2024 3:30 PM COMPRESSED GAS PLANT WORKER Office Visit [facility] [address] [place] [phone] Audrey Díaz, Herminia Koo MD [facility] [place], [place] [address] 06/04/2024 3:30 PM COMPRESSED GAS PLANT WORKER Office Visit [place] [address] [facility] [address] [place] [phone] Jelena David, 3[address] [facility] [place] [address] 06/11/2024 10:30 AM COMPRESSED GAS PLANT WORKER Appointment [facility] Respiratory Therapy [address] [place] [phone] Spec, Nurse Only Med 06/18/2024 2:50 PM COMPRESSED GAS PLANT WORKER Therapy Visit [facility] [address] [place] [phone] Ingris Thompson, PT [facility] [address] [place] [address] 06/21/2024 2:00 PM COMPRESSED GAS PLANT WORKER Office Visit [facility]rology [facility] - [place] [address] [place] [address], [address] [place] [phone] [place] [address] [place] [address] Johnny Penn MD 9562 [facility] [place] 597875 06/25/2024 8:30 AM COMPRESSED GAS PLANT WORKER Office Visit [facility] 830 [place] [phone] Valery Veronica PA-C [address] [place] [address] 11/28/2024 7:45 AM CDT Virtual Visit [facility] Gastroenterology Clinic [address] 4th [place] [phone] Meredith Carrera PA-C [address] [place] [address] 774335 documented as of this encounter Visit Diagnoses Not on filedocumented in this encounter Additional Health Concerns Infection Onset Date Last Indicated Resolved Time Rule Out COVID-19 12/26/2023 12/26/2023 12/26/2023 9:50 AM CDT Rule Out COVID-19 04/09/2024 04/09/2024 04/10/2024 6:48 PM CDT Assessment Noted Time PHQ-9 Depression Total Score: 4 06/20/20 8:40 AM COMPRESSED GAS PLANT WORKER documented as of this encounter Care Teams Inventory Control Planner Relationship Specialty Start Date End Date Esha Grimm PA-C [address] [place] [address] PCP - General Family Medicine 05/04/23 Diana Desir, [facility] [address] [place] [address] Pharmacist Pharmacist 04/17/21 Rain Galaviz PA-C [address] [place] [address] [place] [address] Physician Flight Crew Scheduler Dermatology 04/28/21 Tavia Wyatt MD [address] [place] [address] [address] [place] [address] Dermatology 07/14/21 Erica Farrell APRN TRIM DIE MAKER [address] [place], [place] [address] Nurse Practitioner Cardiovascular Disease 09/09/21 Rich Barrett MD 516 [facility] 9A [place], [place] [address] Physician Ophthalmology 01/21/22 Neil Kent MD 500 [place], [place] 428595 MD Dermatology 02/24/22 [facility] 3033 [place], [place] 406076 Assigned [place] Pharmacist 04/07/22 Livan Sharif MD [address], [facility] [address] [place], [place] [address] Cardiovascular Disease 05/14/22 Catherine Cm MD [address] [facility]00 [place], [place] 4[address] Cardiovascular Disease 07/21/22 Valery Veronica, PA-C [address] [place] [address] 4789[address] Physician Flight Crew Scheduler Dermatology 07/21/22 Brea Quinn APRN TRIM DIE MAKER 500 [place] [address] Nurse Practitioner Dermatology 09/21/22 Brea Quinn APRN TRIM DIE MAKER 6401 [facility] [place] [address] Assigned Surgical Provider 10/09/22 05/01/24 [place] [address] [facility] 300 [place] [address] Assigned Musculoskeletal Provider 10/09/22 05/01/24 Alfonso Renteria MD 5775 [facility] 200 [place], [place] [address]376 Assigned Neuroscience Provider 04/02/23 Radha Lomeli APRN TRIM DIE MAKER [address] 5868600 [place] [address] Assigned Heart and Vascular Provider 05/28/23 [place] David OD [address] [facility] [place] [address] Ophthalmology 06/15/23 Pao Joseph, VJ Personal Advocate & Liaison (PAL) Nurse 08/01/23 11/07/23 Esha Grimm PA-C [address] [place] [phone] Assigned PCP 07/16/23 Valery Veronica PA-C 909 [place] [address] Physician Flight Crew Scheduler Dermatology 09/19/23 Rey Tay MD 909 [place] [address] Gastroenterology 09/20/23 Rocky Zepeda DO 500 [place] [address] Physician Gastroenterology 09/20/23 Philip Dumont MD 6 [place] [address] Physician Ophthalmology 09/22/23 Meredith Carrera PA-C 9 [place] [address] Assigned Gastroenterology Provider 11/01/23 Neil Kent MD [address] [address] Dermatology 11/02/23 [place] [address] [address] [address] Neurological Surgery 12/26/23 Audrey Waite PA-C 500 [place] [address] Physician Flight Crew Scheduler Dermatology 02/28/24 Valery Veronica PA-C 312599 [place] [address] Physician Flight Crew Scheduler Dermatology 04/10/24 documented as of this encounter
--- OUTSIDE RECORDS SUMMARY | 2024-05-27 08:49 | XMS_ITS | Encounter Summary ---
Author Organization [place] Address [address] [place] [address] Care Team Providers Care Funeral Director And Embalmer Name Role Phone Lita Oseguera Unavailable Unavailable Marija Edgar APRN LINOLEUM PRINTER Primary Care Provider + Marija Edgar APRN LINOLEUM PRINTER Unavailable [phone] Keisha Dotson MD Unavailable [phone] Diana Desir [facility] Unavailable [phone] Rain Galaviz PA-C Unavailable [phone] Tavia Wyatt MD Unavailable Unavailable Erica Farrell APRN LINOLEUM PRINTER Unavailable Rich Barrett MD Unavailable [phone] Neil Kent MD Unavailable Diana Desir [facility] Unavailable Livan Sharif MD Unavailable Catherine Cm MD Unavailable + Valery Veronica PA-C Unavailable [phone] Brea Quinn APRN LINOLEUM PRINTER Unavailable Brea Quinn STATE EDITOR LINOLEUM PRINTER Unavailable [phone] Jose Francisco Johnson MD Unavailable Catherine Cm MD Unavailable + Sydnie Martinez RN Unavailable Unavailable Alfonso Renteria MD Unavailable [phone] Esha Grimm PA-C Primary Care Provider Cheng Todd PA-C Unavailable Radha Lomeli APRN LINOLEUM PRINTER Unavailable Jelena David OD Unavailable [phone] Pao Joseph RN Unavailable Unavailable Esha Grimm PA-C Unavailable [phone] Valery Veronica PA-C Unavailable [phone] Rey Tay MD Unavailable Rocky Zepeda DO Unavailable Philip Dumont MD Unavailable Meredith Carrera PA-C Unavailable Neil Kent MD Unavailable Juan Pablo Emmanuel MD Unavailable Audrey Waite PA-C Unavailable [phone] JeremíasValery damon PA-C Unavailable Encounter Details Date Type Department Care Team (Late st Contact Info) Description 12/23/2022 MyC Medical Advice [facility] [address] [place] [address] Lauren Claudio PA-C [address] [place] [address] Social History Tobacco Use Types [...] How often do you attend uatsdin or hoahaoism serv ices? Never 09/22/2021 Do [...] Answer Date Recorded PHQ-2 Score 1 10/11/2022 [employer] [facility] Occupat ional Health - Occupational Stress [...] in a penitentiary (including now)? No 09/22/2021 [place] [...] PM CDT Legal Sex Female 4:13 AM NATIONAL ACCOUNT REPRESENTATIVE Gender Identity Female 03/02/2021 5:45 PM CDT [...] st Contact Info) Description 05/31/2024 8:40 AM NATIONAL ACCOUNT REPRESENTATIVE Therapy Visit [address] [place] [address] Ingris Thompson, PT [address] [address] 05/31/2024 3:30 PM NATIONAL ACCOUNT REPRESENTATIVE Office Visit [facility] [address] [address] Audrey Díaz, Herminia Koo MD [address] [place] [address] 06/04/2024 3:30 PM NATIONAL ACCOUNT REPRESENTATIVE Office Visit [address] [place] [address] Jelena David, [address] [place] [address] 06/11/2024 10:30 AM NATIONAL ACCOUNT REPRESENTATIVE Appointment [facility] Respiratory Therapy [address] [place] [address] Spec, Nurse Only Med 06/18/2024 2:50 PM NATIONAL ACCOUNT REPRESENTATIVE Therapy Visit [facility] [address] [place] [address] [address] [place] [address] Ingris Thompson, PT [address] [address] 06/21/2024 2:00 PM NATIONAL ACCOUNT REPRESENTATIVE Office Visit [facility] Neurology Clinics [address], [address] [place] [phone] [place] [address] [place] [address] Johnny Penn MD [address] [place] [address] 06/25/2024 8:30 AM NATIONAL ACCOUNT REPRESENTATIVE Office Visit [address] [phone] Valery Veronica, PAUcheC [address] [place] [address] 11/28/2024 7:45 AM CDT Virtual Visit [facility] Gastroenterology Clinic [address]th [place] [address] Meredith Carrera PA-C [address] [place] [address]23945 documented as of this encounter Visit Diagnoses [...] documented as of this encounter Care Teams Funeral Director And Embalmer Relationship Specialty Start Date End Date Marija Edgar APRN LINOLEUM PRINTER PCP - General Nurse Practitioner 04/30/20 04/14/23 Esha Grimm PA-C [address] [place] [address] PCP - General Family Medicine 05/04/23 Lita Oseguera Personal Advocate & Liaison (PAL) 02/28/20 03/27/23 Marija Edgar APRN LINOLEUM PRINTER Assigned PCP 06/08/20 04/29/23 Keisha Dotson MD 9 [place], [place] [address]725 Assigned Neuroscience Provider 06/04/20 04/01/23 [facility] 3033 [place] [address] Pharmacist Pharmacist 04/17/21 Rain Galaviz PA-C [address] [place] [address] [address] [place] [address] Physician Fun House Attendant Dermatology 04/28/21 Tavia Wyatt MD [address] [place] [address] [address] [place] [address] Dermatology 07/14/21 Erica Farrell APRN LINOLEUM PRINTER [address] [place], [place] 6[address] Nurse Practitioner Cardiovascular Disease 09/09/21 Rich Barrett MD [address] 4[address] Physician Ophthalmology 01/21/22 Neil Kent MD 500 [place], [place] [address]85 Dermatology 02/24/22 Diana Desir, [facility] 3033 [place] [address] Assigned MTM Pharmacist 04/07/22 Livan Sharif MD [address] [place] 6[address]165 Cardiovascular Disease 05/14/22 Catherine Cm MD [address] [facility] [place] 85[address]25 Cardiovascular Disease 07/21/22 Valery Veronica, PA-C 909 [place], [place] 863385 Physician Fun House Attendant Dermatology 07/21/22 Brea Quinn APRN LINOLEUM PRINTER 500 [place] [address] Nurse Practitioner Dermatology 09/21/22 Brea Quinn APRN LINOLEUM PRINTER [address] [facility] [place] [address]42 Assigned Surgical Provider 10/09/22 05/01/24 [place] [address] [place] [address] Assigned Musculoskeletal Provider 10/09/22 05/01/24 Catherine Cm MD [address] [place] [address] Assigned Heart and Vascular Provider 11/13/22 05/27/23 Sydnie Martinez RN Personal Advocate & Liaison (PAL) Family Medicine 03/28/23 07/31/23 Alfonso Renteria MD [address] [facility] [address] 200 [place] [address] Assigned Neuroscience Provider 04/02/23 Cheng Todd PA-C [address] [place] [address] [id number] Assigned PCP 04/30/23 07/15/23 Radha Lomeli APRN LINOLEUM PRINTER [address] [place] [address] Assigned Heart and Vascular Provider 05/28/23 Jelena David OD [address] [facility] [place] [address] Ophthalmology 06/15/23 Pao Joseph RN Personal Advocate & Liaison (PAL) Nurse 08/01/23 11/07/23 Esha Grimm PA-C [address] [place] [address] Assigned PCP 07/16/23 Valery Veronica PA-C 909 [place], [place] 115985 Physician Fun House Attendant Dermatology 09/19/23 Rey Tay MD 909 [place] [address] Gastroenterology 09/20/23 Rocky Zepeda DO 500 [place] [address] Physician Gastroenterology 09/20/23 Philip Dumont MD 516 [place] [address] Physician Ophthalmology 09/22/23 Meredith Carrera PA-C 909 [place] [address] Assigned Gastroenterology Provider 11/01/23 Neil Kent MD [address] [place] [address] Dermatology 11/02/23 [place] [address] [address] [facility] [place] [address] Neurological Surgery 12/26/23 Audrey Waite PA-C 500 [place] [address] Physician Fun House Attendant Dermatology 02/28/24 Valery Veronica PA-C [address] [place] [address] Physician Fun House Attendant Dermatology 04/10/24 documented as of this encounter
--- OUTSIDE RECORDS SUMMARY | 2024-05-27 08:49 | XMS_ITS | Encounter Summary ---
Author Organization [place] Address [address] [place] [address] Care Team Providers Care Machinist Class B Name Role Phone Marija Edgar APRN FIREWALL ADMINISTRATOR Primary Care Provider + Marija Edgar APRN FIREWALL ADMINISTRATOR Unavailable [phone] Diana Desir [facility] Unavailable [phone] Rain Galaviz PA-C Unavailable Tavia Wyatt MD Unavailable Unavailable Erica Farrell APRN FIREWALL ADMINISTRATOR Unavailable Rich Barrett MD Unavailable [phone] Neil Kent MD Unavailable Diana Desir [facility] Unavailable [phone] Livan Sharif MD Unavailable Catherine Cm MD Unavailable + Valery Veronica PA-C Unavailable [phone] Brea Quinn APRN FIREWALL ADMINISTRATOR Unavailable [phone] Brea Quinn APRN FIREWALL ADMINISTRATOR Unavailable [phone] Jose Francisco Johnson MD Unavailable Catherine Cm MD Unavailable + Sydnie Martinez RN Unavailable Unavailable Alfonso Renteria MD Unavailable [phone] Esha Grimm PA-C Primary Care Provider Cheng Todd PA-C Unavailable Radha Lomeli APRN FIREWALL ADMINISTRATOR Unavailable Jelena David OD Unavailable Pao Joseph RN Unavailable Unavailable Esha Grimm PA-C Unavailable [phone] Valery Veronica PA-C Unavailable Rey Tay MD Unavailable Rocky Zepeda DO Unavailable Philip Dumont MD Unavailable [phone] Meredith Carrera PA-C Unavailable [phone] Neil Kent MD Unavailable Juan Pablo Emmanuel MD Unavailable Audrey Waite PA-C Unavailable JeremíasValery damon PA-C Unavailable [phone] Encounter Details Date Type Department Care Team (Late st Contact Info) Description 04/12/2023 MyC Medical Advice [facility] [address] [place] [address] [address] [place] [address] Livan Sharif MD [address] [place] [address] Social History Tobacco Use Types [...] do you attend [facility] or yazidism services? 1 to 4 [...] Answer Date Recorded PHQ-2 Score 0 03/10/2023 [facility] [place] of Occupat ional Health - Occupational Stress [...] slept in a mcc (including now)? No 03/10/2023 [place] Depression Scale Answer Date Recorded [place] Depression Score 5 01/14/2021 Last EPDS Self [...] PM CDT Legal Sex Female 4:13 AM ALL ROUND LOGGER Gender Identity Female 03/02/2021 5:45 PM CDT [...] Thank you. Kim Swann, We are in [place], but asked a tech here to check the photo. He said the spot you chose is OK but he thinks we should have the [facility] techs check in with you as you may need to have some extra prep gelif you have have issues with the pads. We are reaching out to that [facility] team to let them know you are having some issues. Team [address] [place] [address] Sharif [phone] documented in this encounter Plan of Treatment Upcoming Encounters Date Type Department Care Team (Late st Contact Info) Description 05/31/2024 8:40 AM ALL ROUND LOGGER Therapy Visit [facility] [address] [place] [address] Ingris Thompson, PT [facility] [address] [address] 05/31/2024 3:30 PM ALL ROUND LOGGER Office Visit [facility] [place] 1875 [place] [phone] Audrey Díaz, Herminia Koo MD 1875 [place] [address] 06/04/2024 3:30 PM ALL ROUND LOGGER [facility] [address] [facility] [address] [place] [phone] Jelena David, [address] [facility] [place] [address] 06/11/2024 10:30 AM ALL ROUND LOGGER Appointment [facility] Respiratory Therapy [address] [place] [phone] Spec, Nurse Only Med 06/18/2024 2:50 PM ALL ROUND LOGGER Therapy Visit [facility] [address] [place] [phone] Ingris Thompson, PT [facility] [address] [place] [address] 106 [place], [place] 58[address] 06/21/2024 2:00 PM ALL ROUND LOGGER Office Visit [facility] - [place] [address] [place] [address], [address] [place] [phone] [place] [address] [place] [address] Johnny Penn MD 6606 [facility] [place] 163075 06/25/2024 8:30 AM ALL ROUND LOGGER Office Visit [facility] [place] 830 [place] [address] Valery Veronica PA-C [address] [place] [address] 11/28/2024 7:45 AM CDT Virtual Visit [facility] Gastroenterology Clinic [address] 4th [place] [phone] Meredith Carrera PA-C [address] [place] [address] documented as of this encounter Visit Diagnoses Not on filedocumented in this encounter Additional Health Concerns Infection Onset Date Last Indicated Resolved Time Rule Out COVID-19 12/26/2023 12/26/2023 12/26/2023 9:50 AM CDT Rule Out COVID-19 04/09/2024 04/09/2024 04/10/2024 6:48 PM CDT Assessment Noted Time PHQ-9 Depression Total Score: 5 03/10/20 6:49 AM CDT documented as of this encounter Care Teams Machinist Class B Relationship Specialty Start Date End Date Marija Edgar APRN FIREWALL ADMINISTRATOR PCP - General Nurse Practitioner 04/30/20 04/14/23 Esha Grimm PA-C [address] [place] [address] PCP - General Family Medicine 05/04/23 Marija Edgar APRN FIREWALL ADMINISTRATOR Assigned PCP 06/08/20 04/29/23 Diana Desir, [facility] [address] [place] [address] Pharmacist Pharmacist 04/17/21 Rain Galaviz PA-C [address] [place] [address] [address] [place] [address] Physician Boat Tender Dermatology 04/28/21 Tavia Wyatt MD [address] [place] [address] [place] [address] Dermatology 07/14/21 Erica Farrell APRN FIREWALL ADMINISTRATOR [address] [place], [place] [address] Nurse Practitioner Cardiovascular Disease 09/09/21 Rich Barrett MD [address] 6206[address] Physician Ophthalmology 01/21/22 Neil Kent MD 500 [place], [place] 996775 Dermatology 02/24/22 Diana Desir, [facility] [address] [place] [address] Assigned MTM Pharmacist 04/07/22 Livan Sharif MD [address] [place] [address] Cardiovascular Disease 05/14/22 Catherine Cm MD [address] [place] [address] Cardiovascular Disease 07/21/22 Valery Veronica PA-C 909 [place] [address] Physician Boat Tender Dermatology 07/21/22 Brea Quinn APRN FIREWALL ADMINISTRATOR 500 [place] [address] Nurse Practitioner Dermatology 09/21/22 Brea Quinn APRN FIREWALL ADMINISTRATOR 6401 [place] [address] Assigned Surgical Provider 10/09/22 05/01/24 [place] [address] [facility] 300 [place], [place] 808397 Assigned Musculoskeletal Provider 10/09/22 05/01/24 Catherine Cm MD [address] [place] 3591400 [place] [address] Assigned Heart and Vascular Provider 11/13/22 05/27/23 Sydnie Martinez RN Personal Advocate & Liaison (PAL) Family Medicine 03/28/23 07/31/23 Alfonso Renteria MD 5775 [facility] 200 [place], [place] 949766 Assigned Neuroscience Provider 04/02/23 Cheng Todd PA-C [address] [place] [address] Assigned PCP 04/30/23 07/15/23 Radha Lomeli APRN FIREWALL ADMINISTRATOR [address] [place] [address] Assigned Heart and Vascular Provider 05/28/23 Jelena David OD [address] [facility] [place] [address] MD Ophthalmology 06/15/23 Pao Joseph, VJ Personal Advocate & Liaison (PAL) Nurse 08/01/23 11/07/23 Esha Grimm PA-C [address] [place] [phone] Assigned PCP 07/16/23 Valery Veronica PA-C [address] [place] [address] 711615 Physician Boat Tender Dermatology 09/19/23 Rey Tay MD [address] [place] [address]69[address] Gastroenterology 09/20/23 Rocky Zepeda DO [address] [place] [address]35[address] Physician Gastroenterology 09/20/23 Philip Dumont MD [address] [place] [address] 461045 Physician Ophthalmology 09/22/23 Meredith Carrera PA-C [address] [place] [address]65 Assigned Gastroenterology Provider 11/01/23 Neil Kent MD [address] [place] [address] Dermatology 11/02/23 [place] [address] [place] [address] Neurological Surgery 12/26/23 Audrey Waite PA-C 500 [place] [address] Physician Boat Tender Dermatology 02/28/24 Valery Veronica PA-C [address] [place] [address] Physician Boat Tender Dermatology 04/10/24 documented as of this encounter
--- OUTSIDE RECORDS SUMMARY | 2024-05-27 08:49 | XMS_ITS | Encounter Summary ---
Author Organization [place] Address [address] [place] [address] Care Team Providers Care Wireless Telegrapher Name Role Phone Diana Desir [facility] Unavailable [phone] Rain Galaviz-C Unavailable [phone] Tavia Wyatt MD Unavailable Unavailable Erica Farrell APRN FENCE ERECTOR SUPERVISOR Unavailable Rich Barrett MD Unavailable Neil Kent MD Unavailable ThangDiana [facility] Unavailable [phone] Livan Sharif MD Unavailable Catherine Cm MD Unavailable + Vaelry Veronica-C Unavailable [phone] Brea Quinn MEDICAL ACCOUNTING CLERK FENCE ERECTOR SUPERVISOR Unavailable Brea Quinn MEDICAL ACCOUNTING CLERK FENCE ERECTOR SUPERVISOR Unavailable Jose Francisco Johnson MD Unavailable Sydnie Martinez RN Unavailable Unavailable Alfonso Renteria MD Unavailable [phone] Esha Grimm PA-C Primary Care Provider [phone] Cheng Todd PA-C Unavailable Radha Lomeli APRN FENCE ERECTOR SUPERVISOR Unavailable Jelena David OD Unavailable Pao Joseph RN Unavailable Unavailable Esha Grimm PA-C Unavailable [phone] Valery Veronica PA-C Unavailable Rey Tay MD Unavailable Rocky Zepeda DO Unavailable Philip Dumont MD Unavailable Meredith Carrera PA-C Unavailable [phone] Neil Kent MD Unavailable Juan Pablo Emmanuel MD Unavailable Audrey Waite PA-C Unavailable [phone] Valery Veronica PA-C Unavailable Encounter Details Date Type Department Care Team (Late st Contact Info) Description 06/15/2023 MyC Medical Advice [facility] Gastroenterology Clinic [address] [address] Doris Levi Social History Tobacco Use [...] 03/10/2023 How often do you attend [facility] or yarsani services? 1 to 4 times [...] Answer Date Recorded PHQ-2 Score 1 05/16/2023 [facility] - Occupational Stress Questionnaire [...] exercise at this level? 30 min 03/10/2023 [place] Depression Scale Answer Date Recorded [place] Depression Score 5 01/14/2021 Last EPDS [...] in an overnight mcc, or couch-surfing.) Yes 04/18/2023 Are you worried [...] PM CDT Legal Sex Female 4:13 AM CARDIO TECH Gender Identity Female 03/02/2021 5:45 PM CDT Sexual Orientation Straight 02/28/2020 12 :51 AM CDT documented as of this encounter Plan of Treatment Upcoming Encounters Date Type Department Care Team (Late st Contact Info) Description 05/31/2024 8:40 AM CARDIO TECH Therapy Visit [facility] [address] [place] [address] Ingris Thompson, PT [facility] [address] [place] [address] 106 [place], [place] [address]3875 05/31/2024 3:30 PM CARDIO TECH Office Visit [facility] [address] [address] Audrey Díaz, Herminia Koo MD 8895 [place] [address] 06/04/2024 3:30 PM CARDIO TECH Office Visit [facility] [place] [address] [facility] [address] [place] [phone] Frankie Jelena Garcia, OD [address] [facility] [place] [address] 06/11/2024 10:30 AM CARDIO TECH Appointment [facility] Respiratory Therapy [address] [place] [address] Spec, Nurse Only Med 06/18/2024 2:50 PM CARDIO TECH Therapy Visit [facility] [address] [place] [phone] Ingris Thompson, PT [facility] 516 [facility] 106 [place], [place] [address]05 06/21/2024 2:00 PM CARDIO TECH Office Visit [facility] [place] [address] [place] [address] [address] [place] [phone] [place] [address] [place], [place] 9[address] Johnny Penn MD 6598 [place], [place] 108655 06/25/2024 8:30 AM CARDIO TECH Office Visit [address] [phone] Valery Veronica, ROVERTO 909 [place] [address] 11/28/2024 7:45 AM CDT Virtual Visit [facility] [place] [address] [facility] [address] 4th [place] [address] Meredith Carrera PA-C 9 [place] [address] documented as of this encounter Visit Diagnoses Not on filedocumented in this encounter Additional Health Concerns Infection Onset Date Last Indicated Resolved Time Rule Out COVID-19 12/26/2023 12/26/2023 12/26/2023 9:50 AM CDT Rule Out COVID-19 04/09/2024 04/09/2024 04/10/2024 6:48 PM CDT Assessment Noted Time PHQ-9 Depression Total Score: 6 05/16/20 9:29 AM CARDIO TECH documented as of this encounter Care Teams Wireless Telegrapher Relationship Specialty Start Date End Date Esha Grimm PA-C [address] [place] [address] PCP - General Family Medicine 05/04/23 Diana Desir, [facility] 3033 [place] [address] Pharmacist Pharmacist 04/17/21 Rain Galaviz PA-C [address] [place] [address] [place] [address] Physician Sales Agent Business Services Dermatology 04/28/21 Tavia Wyatt MD [address] [place] [address] [place] [address] Dermatology 07/14/21 Erica Farrell APRN FENCE ERECTOR SUPERVISOR 6405 [facility] [address] [place] [address] Nurse Practitioner Cardiovascular Disease 09/09/21 Rich Barrett MD 516 [facility] [address] [place], [place] [address] Physician Ophthalmology 01/21/22 Neil Kent MD 500 [place], [place] [address] Dermatology 02/24/22 Diana Desir, [facility] 30[address] [place], [place] 6[address]266 Assigned MTM Pharmacist 04/07/22 Livan Sharif MD [address] [place], [place] [address] Cardiovascular Disease 05/14/22 Catherine Cm MD [address] 7809[address] Cardiovascular Disease 07/21/22 Valery Veronica, PA-C 909 [place], [place] [address] Physician Sales Agent Business Services Dermatology 07/21/22 Brea Quinn APRN FENCE ERECTOR SUPERVISOR 500 [place], [place] 887135 Nurse Practitioner Dermatology 09/21/22 Brea Quinn APRN FENCE ERECTOR SUPERVISOR 6401 [facility] EN[place] DO[place] 149242 Assigned Surgical Provider 10/09/22 05/01/24 [place] [address] [place] [address] Assigned Musculoskeletal Provider 10/09/22 05/01/24 Sydnie Martinez RN Personal Advocate & Liaison (PAL) Family Medicine 03/28/23 07/31/23 Alfonso Renteria MD 5775 [facility] 200 [place] [address] Assigned Neuroscience Provider 04/02/23 Cheng Todd PA-C [address] [place] [address] Assigned PCP 04/30/23 07/15/23 Radha Lomeli APRN FENCE ERECTOR SUPERVISOR 6405 [facility] [address] [place] [address] Assigned Heart and Vascular Provider 05/28/23 Jelena David OD [address] [facility] [place] [address] Ophthalmology 06/15/23 Pao Joseph, VJ Personal Advocate & Liaison (PAL) Nurse 08/01/23 11/07/23 Esha Grimm PA-C [address] [place] [address] Assigned PCP 07/16/23 Valery Veronica PA-C 909 [place] [address] Physician Sales Agent Business Services Dermatology 09/19/23 Rey Tay MD 909 [place] [address] Gastroenterology 09/20/23 Rocky Zepeda DO 500 [place] [address] Physician Gastroenterology 09/20/23 Philip Dumont MD 6 [place] [address] Physician Ophthalmology 09/22/23 Meredith Carrera PA-C 9 [place] [address] Assigned Gastroenterology Provider 11/01/23 Neil Kent MD [address] [address] Dermatology 11/02/23 [place] [address] [address] Neurological Surgery 12/26/23 Audrey Waite PA-C 500 [place] [address] Physician Sales Agent Business Services Dermatology 02/28/24 Valery Veronica PA-C 463885 [place], [place] [address] Physician Sales Agent Business Services Dermatology 04/10/24 documented as of this encounter
--- OUTSIDE RECORDS SUMMARY | 2024-05-27 08:49 | XMS_ITS | Encounter Summary ---
Author Organization [place] Address [address] [place] [address] Care Team Providers Care Location And Measurement Technician Name Role Phone Diana Desir [facility] Unavailable [phone] Rain Galaviz-C Unavailable Tavia Wyatt MD Unavailable Unavailable Erica Farrell APRN DIETARY AID Unavailable Rich Barrett MD Unavailable Neil Kent MD Unavailable ThangDiana [facility] Unavailable Livan Sharif MD Unavailable Catherine Cm MD Unavailable + Valery Veronica-C Unavailable [phone] Brea Quinn MOBILE MANAGER DIETARY AID Unavailable Brea Quinn MOBILE MANAGER DIETARY AID Unavailable Jose Francisco Johnson MD Unavailable Sydnie Martinez RN Unavailable Unavailable Alfonso Renteria MD Unavailable + [phone] Esha Grimm PA-C Primary Care Provider Cheng Todd PA-C Unavailable Radha Lomeli APRN DIETARY AID Unavailable Jelena David OD Unavailable Pao Joseph RN Unavailable Unavailable Esha Grimm PA-C Unavailable [phone] Valery Veronica PA-C Unavailable [phone] Rey Tay MD Unavailable Rocky Zepeda DO Unavailable Philip Dumont MD Unavailable [phone] Meredith Carrera PA-C Unavailable [phone] Neil Kent MD Unavailable Juan Pablo Emmanuel MD Unavailable Audrey Waite PA-C Unavailable Valery Veronica PA-C Unavailable [phone] Reason for Visit * Reason Onset Date Comments Appointment 06/17/2023 Encounter Details Date Type Department Care Team (Late st Contact Info) Description 06/17/[address] [facility] [address] [place] [address] Esha Grimm PAUcheC [id number] [place] [address] Appointment Social History Tobacco Use Types [...] Recorded PHQ-2 Score 0 06/[facility]23 [facility] [...] at this level? 30 min 03/10/2023 [place] Depression Scale Answer Date Recorded [place] Depression Score 5 01/14/2021 Last EPDS [...] PM CDT Legal Sex Female 4:13 AM CARRIER PACKER Gender Identity Female 03/02/2021 5:45 PM CDT Sexual Orientation Straight 02/28/2020 12 :51 AM CDT documented as of this encounter Miscellaneous Notes * Telephone Encounter - Lulu Day - 06/17/2023 7:19 AM CST [facility] doesn't have anything, we are down providers and they are all full today Lulu Day/ [facility] IER PACKER * Telephone Encounter - Rosio Eller - [...] we send this information to you in [email or web address] or would you prefer to receive a phone call?: Patient would prefer a phone call Okay to leave a detailed message?: Yes at Home number on file [phone] (home) Call taken on 06/17/2023 at 7:13 AM by Rosio Eller IER PACKER documented in this encounter Plan of Treatment Upcoming Encounters Date Type Department Care Team (Late st Contact Info) Description 05/31/2024 8:40 AM CARRIER PACKER Therapy Visit [address] [phone] Ingris Thompson, PT [facility] [address] [place] [address] 887255 05/31/2024 3:30 PM CARRIER PACKER Office Visit [address] [address] Audrey Díaz, Herminia Koo MD [address] [place] [address] 06/04/2024 3:30 PM CARRIER PACKER Office Visit [address] [place] [phone] Jelena David, [address] [place] [address] 06/11/2024 10:30 AM CARRIER PACKER Appointment [facility] Respiratory Therapy [address] [place] [phone] Spec, Nurse Only Med 06/18/2024 2:50 PM CARRIER PACKER Therapy Visit [address] [phone] Ingris Thompson, PT [facility] 516 [facility] 106 [place], [place] 740965 06/21/2024 2:00 PM CARRIER PACKER Office Visit [facility] [place] [address] [facility], [address] [place] [phone] [place] [address] [place], [place] [address] Johnny Penn MD [address] [place] [address] 06/25/2024 8:30 AM CARRIER PACKER Office Visit [address] [phone] Valery Veronica PA-C [address] [place] [address] 11/28/2024 7:45 AM CDT Virtual Visit [facility] [address] 4th [place] [phone] Meredith Carrera PA-C [address] [place] [address] 034875 documented as of this encounter Visit Diagnoses Not on filedocumented in this encounter Additional Health Concerns Infection Onset Date Last Indicated Resolved Time Rule Out COVID-19 12/26/2023 12/26/2023 12/26/2023 9:50 AM CDT Rule Out COVID-19 04/09/2024 04/09/2024 04/10/2024 6:48 PM CDT Assessment Noted Time PHQ-9 Depression Total Score: 6 05/16/20 9:29 AM CARRIER PACKER documented as of this encounter Care Teams Location And Measurement Technician Relationship Specialty Start Date End Date Esha Grimm PA-C [address] [place] [phone] PCP - General Family Medicine 05/04/23 Diana Desir, [facility] [address] [place] [address] Pharmacist Pharmacist 04/17/21 Rain Galaviz PA-C [address] [place] [address] [address] [place] [address] Physician Medical Planner Dermatology 04/28/21 Tavia Wyatt MD [address] [place] [address] [address] [place] [address] Dermatology 07/14/21 Erica Farrell, [facility] [address] [place] [address] Nurse Practitioner Cardiovascular Disease 09/09/21 Rich Barrett MD 516 [facility] 9A [place], [place] [address]135 Physician Ophthalmology 01/21/22 Neil Kent MD 500 [place], [place] [address] Dermatology 02/24/22 Diana Desir, [facility] [address] [place] [address] Assigned MTM Pharmacist 04/07/22 Livan Sharif MD [address] [facility] [address] [place] [address] Cardiovascular Disease 05/14/22 Catherine Cm MD 6405 [facility] [address] [place] [address] Cardiovascular Disease 07/21/22 Valery Veronica PA-C 909 [place] [address] Physician Medical Planner Dermatology 07/21/22 Brea Quinn APRN DIETARY AID 500 [place] [address] Nurse Practitioner Dermatology 09/21/22 Brea Quinn APRN [facility] AID [address] [place] [address] Assigned Surgical Provider 10/09/22 05/01/24 [place] [address] [facility] 300 [place] [address] Assigned Musculoskeletal Provider 10/09/22 05/01/24 Sydnie Martinez RN Personal Advocate & Liaison (PAL) Family Medicine 03/28/23 07/31/23 Alfonso Renteria MD 5775 [facility] 200 [place], [place] 332606 Assigned Neuroscience Provider 04/02/23 Cheng Todd PA-C [address] [place] [address] [phone] Assigned PCP 04/30/23 07/15/23 Radha Lomeli APRN DIETARY AID 6405 [facility] L[address] [facility]00 [place], [place] 316925 Assigned Heart and Vascular Provider 05/28/23 Jelena David OD [address] [place] [address] MD Ophthalmology 06/15/23 Pao Joseph, VJ Personal Advocate & Liaison (PAL) Nurse 08/01/23 11/07/23 Esha Grimm PA-C [address] [place] [phone] Assigned PCP 07/16/23 Valery Veronica PA-C [address] [place] [address] 421265 Physician Medical Planner Dermatology 09/19/23 Rey Tay MD [address] [place] [address] 218165 MD Gastroenterology 09/20/23 Rocky Zepeda DO [address] [place] [address] 508985 Physician Gastroenterology 09/20/23 Philip Dumont MD [address] [place] [address] 039535 Physician Ophthalmology 09/22/23 Meredith Carrera PA-C [address] [place] [address] 325945 Assigned Gastroenterology Provider 11/01/23 Neil Kent MD [address] [address] Dermatology 11/02/23 [place] [address] [place] [address] Neurological Surgery 12/26/23 Audrey Waite PA-C 500 [place] [address] Physician Medical Planner Dermatology 02/28/24 Valery Veronica PA-C [id number] 99 [place] [address] Physician Medical Planner Dermatology 04/10/24 documented as of this encounter
--- OUTSIDE RECORDS SUMMARY | 2024-05-27 08:49 | XMS_ITS | Encounter Summary ---
Author Organization [place] Address [address] [place] [address] Care Team Providers Care Sheet Metal Smith Name Role Phone Marija Edgar ARLENE ENGRAVER COPPERPLATE Unavailable Diana Desir [facility] Unavailable Rain aGlaviz PA-C Unavailable Tavia Wyatt MD Unavailable Unavailable Erica Farrell APRN ENGRAVER COPPERPLATE Unavailable Rich Barrett MD Unavailable Neil Kent MD Unavailable Diana Desir [facility] Unavailable [phone] Livan Sharif MD Unavailable Catherine Cm MD Unavailable + Valery Veronica PA-C Unavailable Brea Quinn APRN ENGRAVER COPPERPLATE Unavailable Brea Quinn TOBACCO SAMPLE PULLER ENGRAVER COPPERPLATE Unavailable [phone] Jose Francisco Johnson MD Unavailable Catherine Cm MD Unavailable + Sydnie Martinez RN Unavailable Unavailable Alfonso Renteria MD Unavailable [phone] Esha Grimm PA-C Primary Care Provider Cheng Todd PA-C Unavailable Radha Lomeli APRN ENGRAVER COPPERPLATE Unavailable Jelena David OD Unavailable Pao Joseph RN Unavailable Unavailable Esha Grimm PA-C Unavailable [phone] Valery Veronica PA-C Unavailable [phone] Rey Tay MD Unavailable Rocky Zepeda DO Unavailable Philip Dumont MD Unavailable [phone] Meredith Carrera PA-C Unavailable [phone] Neil Kent MD Unavailable Juan Pablo Emmanuel MD Unavailable Audrey Waite PA-C Unavailable [phone] Valery Veronica PA-C Unavailable Encounter Details Date Type Department Care Team (Late st Contact Info) Description 04/18/2023 [facility] Medical Advice [facility] [address] 4th [place] [address] Mary Calvo Social History Tobacco [...] often do you attend memorial healthcare or bahai services? 1 to 4 times [...] Answer Date Recorded PHQ-2 Score 0 03/10/2023 [facility] [...] exercise at this level? 30 min 03/10/2023 [place] Depression Scale Answer Date Recorded [place] Depression Score 5 01/14/2021 Last EPDS Self [...] PM CDT Legal Sex Female 4:13 AM TREE FRUIT AND NUT FARMING SUPERVISOR Gender Identity Female 03/02/2021 5:45 PM [...] st Contact Info) Description 05/31/2024 8:40 AM TREE FRUIT AND NUT FARMING SUPERVISOR Therapy Visit [facility] [address] [place] [address] Ingris Thompson, PT [facility] [address] [place] [address] 106 [place] [address] 05/31/2024 3:30 PM TREE FRUIT AND NUT FARMING SUPERVISOR Office Visit [facility] [place] [address] [place] [phone] Audrey Díaz, Herminia Koo MD [address] [place] [address] [phone] 06/04/2024 3:30 PM TREE FRUIT AND NUT FARMING SUPERVISOR Office Visit [facility] [address] [facility] [address] [place] [phone] Jelena David, 3305 [facility] [place] [address] 06/11/2024 10:30 AM TREE FRUIT AND NUT FARMING SUPERVISOR Appointment [facility] Res[facility] Therapy [address] [place] [phone] Spec, Nurse Only Med 06/18/2024 2:50 PM TREE FRUIT AND NUT FARMING SUPERVISOR Therapy Visit [facility] [address] [place] [phone] Ingris Thompson, PT [facility] [address] [place] [address] 06/21/2024 2:00 PM TREE FRUIT AND NUT FARMING SUPERVISOR Office Visit [facility] [place] [address] [facility], [address] [place] [phone] [place] [address] [place] [address] Johnny Penn MD [address] [facility] [place] [phone] 06/25/2024 8:30 AM TREE FRUIT AND NUT FARMING SUPERVISOR Office Visit [address] [phone] Valery Veronica PA-C [address] [place] [address] 11/28/2024 7:45 AM CDT Virtual Visit [facility] [address] 4th [place] [phone] Meredith Carrera PA-C [address] [place] [address] 097065 documented as of this encounter Visit Diagnoses [...] Smith Relationship Specialty Start Date End Date Esha Grimm PA-C [address] [place] [phone] PCP - General Family Medicine 05/04/23 Marija Edgar APRN ENGRAVER COPPERPLATE Assigned PCP 06/08/20 04/29/23 Diana Desir, [facility] [address] [place] [address] Pharmacist Pharmacist 04/17/21 Rain Galaviz PA-C [address] [place] [address] [address] [place] [address] Physician News Library Director Dermatology 04/28/21 Tavia Wyatt MD [address] [place] [address] [address] [place] [address] Dermatology 07/14/21 Erica Farrell APRN ENGRAVER COPPERPLATE [address] [place], [place] 161415 Nurse Practitioner Cardiovascular Disease 09/09/21 Rich Barrett MD [address] [place] [address] 297265 Physician Ophthalmology 01/21/22 Neil Kent MD [address] [place] [address] 855175 Dermatology 02/24/22 [facility] [address] [place] [address] 564496 Assigned [place] Pharmacist 04/07/22 Livan Sharif MD [address], [facility] [place] [address]95 Cardiovascular Disease 05/14/22 Catherine Cm MD [address] [facility] [place] [address]345 Cardiovascular Disease 07/21/22 Valery Veronica PA-C [address] [place] [address] Physician News Library Director Dermatology 07/21/22 Brea Quinn APRN ENGRAVER COPPERPLATE 500 [place] [address] Nurse Practitioner Dermatology 09/21/22 Brea Quinn APRN ENGRAVER COPPERPLATE 6401 [place] [address] Assigned Surgical Provider 10/09/22 05/01/24 [place] [address] [address] Assigned Musculoskeletal Provider 10/09/22 05/01/24 Catherine Cm MD 6405 [facility] [address] [place] [address] Assigned Heart and Vascular Provider 11/13/22 05/27/23 Sydnie Martinez RN Personal Advocate & Liaison (PAL) Family Medicine 03/28/23 07/31/23 Alfonso Renteria MD 5775 [facility] 200 [place], [place] 109706 Assigned Neuroscience Provider 04/02/23 Cheng Todd PA-C [address] [place] [address] [phone] Assigned PCP 04/30/23 07/15/23 Radha oLmeli APRN ENGRAVER COPPERPLATE 6[address] [facility] [address] [place] [address] Assigned Heart and Vascular Provider 05/28/23 Jelena David OD [address] [place] [address] MD Ophthalmology 06/15/23 Pao Joseph, RN Personal Advocate & Liaison (PAL) Nurse 08/01/23 11/07/23 Esha Grimm PA-C [address] [place] [phone] Assigned PCP 07/16/23 Valery Veronica PA-C [address] [place] [address] 784845 Physician News Library Director Dermatology 09/19/23 Rey Tay MD [address] [place] [address] Gastroenterology 09/20/23 Rocky Zepeda DO [address] [place] [address] 517185 Physician Gastroenterology 09/20/23 Philip Dumont MD [address] [place] [address] 815575 Physician Ophthalmology 09/22/23 Meredith Carrera PA-C [address] [place] [address] 579425 Assigned Gastroenterology Provider 11/01/23 Neil Kent MD [address] 622890 Dermatology 11/02/23 [place] [address] [address] Neurological Surgery 12/26/23 Audrey Waite PA-C 500 [place] [address] Physician News Library Director Dermatology 02/28/24 Valery Veronica PA-C [address] [place] [address] Physician News Library Director Dermatology 04/10/24 documented as of this encounter
--- OUTSIDE RECORDS SUMMARY | 2024-05-27 08:49 | XMS_ITS | Encounter Summary ---
Author Organization [facility] Address [address] [place] [address] Care Team Providers Care Popcorn Attendant Name Role Phone Lita Oseguera Unavailable Unavailable Marija Edgar APRN RESIDENTIAL FIELD MANAGER Primary Care Provider + Marija Edgar APRN RESIDENTIAL FIELD MANAGER Unavailable [phone] Keisha Dotson MD Unavailable [phone] Diana Desir [facility] Unavailable [phone] Rain Galaviz PA-C Unavailable Tavia Wyatt MD Unavailable Unavailable Erica Farrell APRN RESIDENTIAL FIELD MANAGER Unavailable Rich Barrett MD Unavailable [phone] Neil Kent MD Unavailable Diana Desir [facility] Unavailable Livan Sharif MD Unavailable Catherine Cm MD Unavailable + Valery Veronica PA-C Unavailable [phone] Brea Quinn APRN RESIDENTIAL FIELD MANAGER Unavailable Brea Quinn PLATE CONDITIONER RESIDENTIAL FIELD MANAGER Unavailable [phone] Jose Francisco Johnson MD Unavailable Livan Sharif MD Unavailable Catherine Cm MD Unavailable + Sydnie Martinez RN Unavailable Unavailable Alfonso Renteria MD Unavailable [phone] Esha Grimm PA-C Primary Care Provider Cheng Todd PA-C Unavailable Armani Radha Stovall PLATE CONDITIONER RESIDENTIAL FIELD MANAGER Unavailable Frankie Jelena Garcia OD Unavailable Pao Joseph RN Unavailable Unavailable Esha Grimm PA-C Unavailable [phone] Valery Veronica PA-C Unavailable Rey Tay MD Unavailable Rocky Zepeda DO Unavailable Philip Dumont MD Unavailable [phone] Meredith Carrera PA-C Unavailable Neil Kent MD Unavailable Juan Pablo Emmanuel MD Unavailable Audrey Waite PA-C Unavailable Valery Veronica PA-C Unavailable Encounter Details Date Type Department Care Team (Late st Contact Info) Description 11/10/2022 [facility] Medical Advice [facility] [id number] [place] [phone] Lauren Claudio PA-C [address] [place] [address] Social History Tobacco Use Types [...] How often do you attend adventism or druze serv ices? Never 09/22/2021 Do [...] Answer Date Recorded PHQ-2 Score 1 10/11/2022 [facility] Occup[facility] ional Health - Occupational Stress [...] in a halfway (including now)? No 09/22/2021 [place] Depression Scale Answer Date Recorded [place] Depression Score 5 01/14/2021 Last EPDS Self Harm Result Not on file 01/14 Education Answer Date Recorded What is the highest level of school you have completed or the highest degree you have received? 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 BREAKER UP MACHINE OPERATOR Gender Identity Female 03/02/2021 5:45 [...] st Contact Info) Description 05/31/2024 8:40 AM BREAKER UP MACHINE OPERATOR Therapy Visit [address] [phone] Ingris Thompson, PT [facility] [address] [place] [address] 378645 05/31/2024 3:30 PM BREAKER UP MACHINE OPERATOR Office Visit [address] [address] Audrey Díaz, Herminia Koo MD [address] [place] [address] 06/04/2024 3:30 PM BREAKER UP MACHINE OPERATOR Office Visit [address] [place] [phone] Jelena David, [address] [place] [address] 06/11/2024 10:30 AM BREAKER UP MACHINE OPERATOR Appointment [facility] Respiratory Therapy [address] [place] [address] Spec, Nurse Only Med 06/18/2024 2:50 PM BREAKER UP MACHINE OPERATOR Therapy Visit [address] [phone] Ingris Thompson, PT [address] [address] 06/21/2024 2:00 PM BREAKER UP MACHINE OPERATOR Office Visit [facility] [place] [address] [facility], [address] [place] [phone] [place] [address] [place] [address] Johnny Penn MD [address] [place] [address] 06/25/2024 8:30 AM BREAKER UP MACHINE OPERATOR Office Visit [address] [phone] Valery Veronica PA-C [address] [place] [address] 11/28/2024 7:45 AM CDT Virtual Visit [facility] [address]th [place] [phone] Meredith Carrera, PABaldo [address] [place] [address] 280665 documented as of this encounter Visit Diagnoses [...] documented as of this encounter Care Teams Popcorn Attendant Relationship Specialty Start Date End Date Marija Edgar APRN RESIDENTIAL FIELD MANAGER PCP - General Nurse Practitioner 04/30/20 04/14/23 Esha Grimm PA-C [address] [place] [phone] PCP - General Family Medicine 05/04/23 Lita Oseguera Personal Advocate & Liaison (PAL) 02/28/20 03/27/23 Marija Edgra APRN RESIDENTIAL FIELD MANAGER Assigned PCP 06/08/20 04/29/23 Keisha Dotson MD 909 [place], [place] 639155 Assigned Neuroscience Provider 06/04/20 04/01/23 Diana Desir, [facility] [address] [place], [place] [address] Pharmacist Pharmacist 04/17/21 Rain Galaviz PA-C [address] [place] [address] [address] [place] [address] Physician Camera Assembler Dermatology 04/28/21 Tavia Wyatt MD [address] [place] [address] [place] [address] Dermatology 07/14/21 Erica Farrell APRN RESIDENTIAL FIELD MANAGER [address] [place] [address] Nurse Practitioner Cardiovascular Disease 09/09/21 Rich Barrett MD 516 [facility] [place], [place] [address] Physician Ophthalmology 01/21/22 Neil Kent MD 500 [place], [place] 315785 Dermatology 02/24/22 Diana Desir, [facility] [address] [place], [place] 5108[address] Assigned MTM Pharmacist 04/07/22 Livan Sharif MD [address], [facility] [address] [place], [place] 2609[address] Cardiovascular Disease 05/14/22 Catherine Cm MD 6[address] [facility] [address] S [facility] [place], [place] [address] Cardiovascular Disease 07/21/22 Valery Veronica, PA-C 909 [place], [place] 032405 Physician Camera Assembler Dermatology 07/21/22 Brea Quinn APRN RESIDENTIAL FIELD MANAGER 500 [place] [address] Nurse Practitioner Dermatology 09/21/22 Brea Quinn APRN RESIDENTIAL FIELD MANAGER [address] [place] [address] [place] [address] Assigned Surgical Provider 10/09/22 05/01/24 [place] [address] [facility] [address] [place] [address] Assigned Musculoskeletal Provider 10/09/22 05/01/24 Livan Sharif MD [address], [facility] [address] [place] [address] Assigned Heart and Vascular Provider 11/06/22 11/12/22 Catherine Cm MD [address] [place] [address] [place] [address] Assigned Heart and Vascular Provider 11/13/22 05/27/23 Sydnie Martinez RN Personal Advocate & Liaison (PAL) Family Medicine 03/28/23 07/31/23 Alfonso Renteria MD 5775 [facility] 200 [place] [address] Assigned Neuroscience Provider 04/02/23 Cheng Todd PA-C [address] [place] [address] Assigned PCP 04/30/23 07/15/23 Radha Lomeli, ARLENE RESIDENTIAL FIELD MANAGER [address] [place] [address] Assigned Heart and Vascular Provider 05/28/23 Jelena David OD [facility] [place] [address] Ophthalmology 06/15/23 Pao Joseph, VJ Personal Advocate & Liaison (PAL) Nurse 08/01/23 11/07/23 Esha Grimm PA-C [address] [place] [phone] Assigned PCP 07/16/23 Valery Veronica PA-C [address] [place] [address] 261735 Physician Camera Assembler Dermatology 09/19/23 Rey Tay MD [address] [place] [address] MD Gastroenterology 09/20/23 Rocky Zepeda DO [address] [place] [address] Physician Gastroenterology 09/20/23 Philip Dumont MD [address] [place] [address] Physician Ophthalmology 09/22/23 Meredith Carrera PA-C [address] [place] [address] Assigned Gastroenterology Provider 11/01/23 Neil Kent MD [address] [address] Dermatology 11/02/23 [place] [address] [place] [address] Neurological Surgery 12/26/23 Audrey Waite PA-C [address] [place] [address] 161375 Physician Camera Assembler Dermatology 02/28/24 Valery Veronica, [facility] [address] [address] Physician Camera Assembler Dermatology 04/10/24 documented as of this encounter
--- OUTSIDE RECORDS SUMMARY | 2024-05-27 08:49 | XMS_ITS | Encounter Summary ---
Author Organization [place] Address [address] [place] [address] Care Team Providers Care Local Telephone Operator Name Role Phone Diana Desir [facility] Unavailable Rain Galaviz PA-C Unavailable Tavia Wyatt MD Unavailable Unavailable Erica Farrell TICKET PRINTER AND TAGGER INDUSTRIAL ENGINEERING INTERN Unavailable Rich Barrett MD Unavailable Neil Kent MD Unavailable ThangDiana [facility] Unavailable Livan Sharif MD Unavailable Catherine Cm MD Unavailable + Valery Veronica-C Unavailable Brea Quinn TICKET PRINTER AND TAGGER INDUSTRIAL ENGINEERING INTERN Unavailable Brea Quinn TICKET PRINTER AND TAGGER INDUSTRIAL ENGINEERING INTERN Unavailable Jose Francisco Johnson MD Unavailable Sydnie Martinez RN Unavailable Unavailable Alfonso Renteria MD Unavailable Esha Grimm PA-C Primary Care Provider [phone] Lomeli, Radha E TICKET PRINTER AND TAGGER INDUSTRIAL ENGINEERING INTERN Unavailable Jelena David OD Unavailable Pao Joseph RN Unavailable Unavailable Esha Grimm PA-C Unavailable [phone] Valery Veronica PA-C Unavailable [phone] Rey Tay MD Unavailable Rocky Zepeda DO Unavailable Philip Dumont MD Unavailable [phone] Meredith Carrera PA-C Unavailable [phone] Neil Kent MD Unavailable Juan Pablo Emmanuel MD Unavailable [phone] Audrey Waite PA-C Unavailable [phone] Valery Veronica PA-C Unavailable [phone] Encounter Details Date Type Department Care Team (Late st Contact Info) Description 07/27/2023 [facility] [place] [address] [address] Diana Desir, [facility] [address] [place] [address] Social History Tobacco Use Types Packs/Day Years [...] often do you attend [facility] or [facility] services? 1 to 4 [...] Answer Date Recorded PHQ-2 Score 0 06/20/2023 [facility] [...] exercise at this level? 30 min 03/10/2023 [place] Depression Scale Answer Date Recorded [place] Depression Score 5 01/14/2021 Last EPDS Self [...] PM CDT Legal Sex Female 4:13 AM FINANCIAL INTERN Gender Identity Female 03/02/2021 5:45 PM CDT Sexual Orientation Straight 02/28/2020 12 :51 AM CDT documented as of this encounter Plan of Treatment Upcoming Encounters Date Type Department Care Team (Late st Contact Info) Description 05/31/2024 8:40 AM FINANCIAL INTERN Therapy Visit [facility] [address] [place] [phone] Ingris Thompson, PT [facility] [address] [place] [address] 106 [place] [address] 05/31/2024 3:30 PM FINANCIAL INTERN Office Visit [facility] [address] [phone] Audrey Díaz PA-C Khan, Waseem, MD [address] [place] [address] [phone] 06/04/2024 3:30 PM FINANCIAL INTERN Office Visit [facility] Monserrat [address] [facility] [address] [place] [phone] Jelena David, [address] [facility] [place] [address] 06/11/2024 10:30 AM FINANCIAL INTERN Appointment [facility] Res[facility] Therapy [address] [place] [phone] Spec, Nurse Only Med 06/18/2024 2:50 PM FINANCIAL INTERN Therapy Visit [facility] [address] [place] [phone] Ingris Thompson, PT [facility] 6 [facility] [address] [place], [place] 9[address] 06/21/2024 2:00 PM FINANCIAL INTERN Office [facility] Neurology [facility] [address] [place] [address], [address] [place] [phone] [place] [address] [place] [id number] Johnny Penn MD [address]50 [place], [place] 672955 06/25/2024 8:30 AM FINANCIAL INTERN Office Visit [address] [phone] Valery Veronica PA-C [address] [place] [address] 11/28/2024 7:45 AM CDT Virtual Visit [facility] Gastroenterology [address] 4th [place] [phone] Meredith Carrera PA-C 909 [place] [address] documented as of this encounter Visit Diagnoses Not on filedocumented in this encounter Additional Health Concerns Infection Onset Date Last Indicated Resolved Time Rule Out COVID-19 12/26/2023 12/26/2023 12/26/2023 9:50 AM CDT Rule Out COVID-19 04/09/2024 04/09/2024 04/10/2024 6:48 PM CDT Assessment Noted Time PHQ-9 Depression Total Score: 4 06/20/20 23 8:40 AM FINANCIAL INTERN documented as of this encounter Care Teams Local Telephone Operator Relationship Specialty Start Date End Date Esha Grimm PA-C [address] [place] [phone] PCP - General Family Medicine 05/04/23 Daina Desir, [facility] [address] [facility] [place], [place] [address]896 Pharmacist Pharmacist 04/17/21 Rain Galaviz PA-C [address] [place] [address] [address] [place] [address] Physician Outside Medical Sales Representative Dermatology 04/28/21 Tavia Wyatt MD [address] [place] [address] [address] [place] [address] Dermatology 07/14/21 Erica Farrell APRN INDUSTRIAL ENGINEERING INTERN 6[address] [facility] [address] [place] [address] Nurse Practitioner Cardiovascular Disease 09/09/21 Rich Barrett MD [address] 144325 Physician Ophthalmology 01/21/22 Neil Kent MD 500 [place], [place] [phone] Dermatology 02/24/22 Diana Desir, [facility] [address] [place] [address] Assigned MTM Pharmacist 04/07/22 Livan Sharif MD [address] 875805 Cardiovascular Disease 05/14/22 Catherine Cm MD [address] 237245 Cardiovascular Disease 07/21/22 Valery Veronica, PA-C 909 [place], [place] 903805 Physician Outside Medical Sales Representative Dermatology 07/21/22 Brea Quinn APRN INDUSTRIAL ENGINEERING INTERN 500 [place] [address] Nurse Practitioner Dermatology 09/21/22 Brea Quinn APRN INDUSTRIAL ENGINEERING INTERN [address] [place] [address] [place] 319192 Assigned Surgical Provider 10/09/22 05/01/24 [place] [address] 123487 Assigned Musculoskeletal Provider 10/09/22 05/01/24 Sydnie Martinez, RN Personal Advocate & Liaison (PAL) Family Medicine 03/28/23 07/31/23 Alfonso Renteria MD 5775 [facility] [address] [place], [place] 530616 Assigned Neuroscience Provider 04/02/23 Radha Lomeli, ARLENE INDUSTRIAL ENGINEERING INTERN [address] [facility] [address] [place] [phone] Assigned Heart and Vascular Provider 05/28/23 Jelena David OD [address] [facility] [place] [address] Ophthalmology 06/15/23 Pao Joseph, VJ Personal Advocate & Liaison (PAL) Nurse 08/01/23 11/07/23 Esha Grimm PA-C [address] [place] [phone] Assigned PCP 07/16/23 Valery Veronica PA-C [address] [place] [address] 860775 Physician Outside Medical Sales Representative Dermatology 09/19/23 Rey Tay MD [address] [place] [address] 670715 Gastroenterology 09/20/23 Rocky Zepeda DO [address] [place] [address] 652055 Physician Gastroenterology 09/20/23 Philip Dumont MD [address] [place] [address] Physician Ophthalmology 09/22/23 Meredith Carrera PA-C [address] [place] [address] 243055 Assigned Gastroenterology Provider 11/01/23 Neil Kent MD [address] 384320 MD Dermatology 11/02/23 [place] [address] 915637 Neurological Surgery 12/26/23 Audrey Waite PA-C [address] [place] [address] 410505 Physician Outside Medical Sales Representative Dermatology 02/28/24 Valery Veronica PA-C [address] [address] Physician Outside Medical Sales Representative Dermatology 04/10/24 documented as of this encounter
--- OUTSIDE RECORDS SUMMARY | 2024-05-27 08:50 | XMS_ITS | Encounter Summary ---
Author Organization [place] Address [address] [place] [address] Care Team Providers Care Steel Sampler Name Role Phone Lita Oseguera Unavailable Unavailable Marija Edgar APRN ACTUARY CLERK Primary Care Provider + Marija Edgar APRN ACTUARY CLERK Unavailable [phone] Keisha Dotson MD Unavailable [phone] Diana Desir [facility] Unavailable Rain Galaviz PA-C Unavailable Tavia Wyatt MD Unavailable Unavailable Erica Farrell APRN ACTUARY CLERK Unavailable Rich Barrett MD Unavailable Neil Kent MD Unavailable Roney Story DPM Unavailable [phone] Diana Desir [facility] Unavailable Jelena David OD Unavailable Livan Sharif MD Unavailable Livan Sharif MD Unavailable Catherine Cm MD Unavailable + Valery Veronica PA-C Unavailable Catherine Cm MD Unavailable + Johnny Murillo MD Unavailable [phone] Brea Quinn STORE MERCHANDISER ACTUARY CLERK Unavailable [phone] Brea Quinn STORE MERCHANDISER ACTUARY CLERK Unavailable [phone] Jose Francisco Johnson MD Unavailable Livan Sharif MD Unavailable Catherine Cm MD Unavailable + Sydnie Martinez RN Unavailable Unavailable Alfonso Renteria MD Unavailable [phone] Esha Grimm PA-C Primary Care Provider Cheng Todd PA-C Unavailable Radha Lomeli STORE MERCHANDISER ACTUARY CLERK Unavailable Jelena David Radha OD Unavailable [phone] Pao Joseph RN Unavailable Unavailable Esha Grimm PA-C Unavailable [phone] Valery Veronica PA-C Unavailable [phone] Rey Tay MD Unavailable Rocky Zepeda DO Unavailable Philip Dumont MD Unavailable Meredith Carrera PA-C Unavailable Neil Kent MD Unavailable Juan Pablo Emmanuel MD Unavailable [phone] Audrey Waite PA-C Unavailable Valery Veronica PA-C Unavailable Encounter Details Date Type Department Care Team (Late st Contact Info) Description 07/02/2022 [facility] [address] [address] Diana Desir, [facility] [address] [place] [address] Social History Tobacco Use Types Packs/Day Years [...] How often do you attend hoahaoism or samaritan serv ices? Never 09/22/2021 Do [...] points; Administer PHQ-9 if positive 1 05/13/2022 [facility] - [facility] Questionnaire [...] a senior living (including now)? No 09/22/2021 [place] Depression Scale Answer Date Recorded [place] Depression Score 5 01/14/2021 Last EPDS Self Harm Result Not on file 01/14 Education Answer Date Recorded What is the highest level of school you have completed or the highest degree you have received? 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 PIECE WORK INSPECTOR Gender Identity Female 03/02/2021 5:45 PM CDT Sexual Orientation Straight 02/28/2020 12 :51 AM CDT COVID-19 Exposure Response Date Recorded In the last 10 days, have yo u been in contact with someone who was confirmed or suspected to have Coronavirus/COVID-19? No / Unsure 06/25/2022 8:44 AM PIECE WORK INSPECTOR documented as of this encounter Plan of Treatment Upcoming Encounters Date Type Department Care Team (Late st Contact Info) Description 05/31/2024 8:40 AM PIECE WORK INSPECTOR Therapy Visit [facility] Services [address] [place] [phone] Ingris Thompson, PT [facility] [address] [place] [address] 106 [place] [address] 05/31/2024 3:30 PM PIECE WORK INSPECTOR Office Visit [facility] Specialty [address] [phone] Audrey Díaz, Herminia Koo MD [address] [place] [address] 06/04/2024 3:30 PM PIECE WORK INSPECTOR Office Visit [facility] Monserrat [address] [place] [address] [address] [place] [phone] Jelena David OD [address] [place] [address] [place] [address] 06/11/2024 10:30 AM PIECE WORK INSPECTOR Appointment [facility] Respiratory Therapy [address] [place] [phone] Spec, Nurse Only Med 06/18/2024 2:50 PM PIECE WORK INSPECTOR Therapy Visit [facility] Rehabilitation Services [place] [address] [place] [address] [address] [place] [phone] Ingris Thompson, PT [facility] 516 [facility] 106 [place], [place] 072355 06/21/2024 2:00 PM PIECE WORK INSPECTOR Office Visit [facility]rology [facility]ics - [place] [address] [facility], [address] [place] [phone] [place] [address] [place] [address] Johnny Penn MD [address] [facility] [place] [place] [phone] 06/25/2024 8:30 AM PIECE WORK INSPECTOR Office Visit [address] [phone] Valery Veronica, PABaldo [address] [place] [address] 11/28/2024 7:45 AM CDT Virtual Visit [facility] Gastroenterology Clinic [address] 4th [place] [phone] Meredtih Carrera PA-C [address] [place] [address] 917305 documented as of this encounter Visit Diagnoses Not on filedocumented in this encounter Additional Health Concerns Infection Onset Date Last Indicated Resolved Time Rule Out COVID-19 11/10/2022 11/10/2022 11/11/2022 12:17 PM CDT Rule Out COVID-03/07/2023 03/07/2023 03/07/2023 1:20 PM CDT Rule Out COVID-19 12/26/2023 12/26/2023 12/26/2023 9:50 AM CDT Rule Out COVID-19 04/09/2024 04/09/2024 04/10/2024 6:48 PM CDT Assessment Noted Time PHQ-9 Depression Total Score: 3 05/13/20 22 8:49 PM CDT documented as of this encounter Care Teams Steel Sampler Relationship Specialty Start Date End Date Marija Edgar APRN ACTUARY CLERK PCP - General Nurse Practitioner 04/30/20 04/14/23 Esha Grimm PA-C [address] [place] [phone] PCP - General Family Medicine 05/04/23 Lita Oseguera Personal Advocate & Liaison (PAL) 02/28/20 03/27/23 Marija Edgar APRN ACTUARY CLERK Assigned PCP 06/08/20 04/29/23 Keisha Dotson MD 909 [place], [place] 084505 Assigned Neuroscience Provider 06/04/20 04/01/23 Diana Desir, [facility] [address] [place], [place] 8[address] Pharmacist Pharmacist 04/17/21 Rain Galaviz PA-C [address] [place] [address] [place] [address] Physician Car Icer Dermatology 04/28/21 Tavia Wyatt MD [address] [place] [address] [place] [address] Dermatology 07/14/21 Erica Farrell APRN ACTUARY CLERK [address] [place] [address] Nurse Practitioner Cardiovascular Disease 09/09/21 Rich Barrett MD 516 [facility] [address] [place], [place] 885505 Physician Ophthalmology 01/21/22 Neil Kent MD 500 [place] [address] Dermatology 02/24/22 Roney Story DPM [address] [employer] [address] [place] [address] Assigned Musculoskeletal Provider 03/20/22 08/13/22 Diana Desir, [facility] 30[address] [place] [address] Assigned MTM Pharmacist 04/07/22 Jelena David OD [address] [facility] [place] [address] Assigned Surgical Provider 05/08/22 10/08/22 Livan Sharif MD [address] [place] [address] Cardiovascular Disease 05/14/22 Livan Sharif MD [address] [place] [address] Assigned Heart and Vascular Provider 06/12/22 07/23/22 Catherine Cm MD [address] [facility] [address] [place] [address] Cardiovascular Disease 07/21/22 Valery Veronica, PA-C [address] [place] [address] 530445 Physician Car Icer Dermatology 07/21/22 Catherine Cm MD [address] [facility] [place] [place] [address] Assigned Heart and Vascular Provider 07/24/22 11/05/22 Johnny Murillo MD [address] [place] [address] 762344 Assigned Musculoskeletal Provider 08/14/22 10/08/22 Brea Quinn APRN ACTUARY CLERK [address] [place] [address] 005275 Nurse Practitioner Dermatology 09/21/22 Brea Quinn APRN ACTUARY CLERK [address] [place] [address] [place] [id number] Assigned Surgical Provider 10/09/22 05/01/24 [place] [address] [place] [address] Assigned Musculoskeletal Provider 10/09/22 05/01/24 Livan Sharif MD [address], [facility] [address] [place] 469665 Assigned Heart and Vascular Provider 11/06/22 11/12/22 Catherine Cm MD [address] [place] 834795 Assigned Heart and Vascular Provider 11/13/22 05/27/23 Sydnie Martinez, VJ Personal Advocate & Liaison (PAL) Family Medicine 03/28/23 07/31/23 Alfonso Renteria MD 5775 [facility] 200 [place] [address] Assigned Neuroscience Provider 04/02/23 Cheng Todd PA-C [address] [place] [address] [id number] Assigned PCP 04/30/23 07/15/23 Radha Lomeli, ARLENE ACTUARY CLERK [address] [place] [address] Assigned Heart and Vascular Provider 05/28/23 Jelena David OD [address] [facility] [address] Ophthalmology 06/15/23 Pao Joseph, VJ Personal Advocate & Liaison (PAL) Nurse 08/01/23 11/07/23 Esha Grimm PAUcheC [address] [place] [address]07[address]83 Assigned PCP 07/16/23 Valery Veronica PA-C 909 [place] [address] Physician Car Icer Dermatology 09/19/23 Rey Tay MD 9 [place], [place] 058[address] MD Gastroenterology 09/20/23 Rocky Zepeda DO 500 [place], [place] 267695 Physician Gastroenterology 09/20/23 Philip Dumont MD [address] [place] [address] 115695 Physician Ophthalmology 09/22/23 Meredith Carrera PA-C [address] [place] [address] 893415 Assigned Gastroenterology Provider 11/01/23 Neil Kent MD [address] [address] Dermatology 11/02/23 [place] [address] [place] [address] Neurological Surgery 12/26/23 Audrey Waite PA-C 500 [place] [address] Physician Car Icer Dermatology 02/28/24 Valrey Veronica PA-C [id number] [address] [place] [address] [place] [address] Physician Car Icer Dermatology 04/10/24 documented as of this encounter
--- OUTSIDE RECORDS SUMMARY | 2024-05-27 08:50 | XMS_ITS | Encounter Summary ---
Author Organization [facility] Address [address] [place] [address] Care Team Providers Care Director Internal Audit Name Role Phone Lita Oseguera Unavailable Unavailable Marija Edgar APRN CIRCUIT MANAGER Primary Care Provider + Marija Edgar APRN CIRCUIT MANAGER Unavailable [phone] Keisha Dotson MD Unavailable Diana Desir [facility] Unavailable Rain Galaviz PA-C Unavailable Tavia Wyatt MD Unavailable Unavailable Erica Farrell APRN CIRCUIT MANAGER Unavailable Rich Barrett MD Unavailable Neil Kent MD Unavailable Roney Story DPM Unavailable [phone] Diana Desir [facility] Unavailable Jelena David OD Unavailable Livan Sharif MD Unavailable Livan Sharif MD Unavailable Catherine Cm MD Unavailable + Valery Veronica PA-C Unavailable Catheirne Cm MD Unavailable + Johnny Murillo MD Unavailable [phone] Brea Quinn RECESSING MACHINE OPERATOR CIRCUIT MANAGER Unavailable [phone] Brea Quinn RECESSING MACHINE OPERATOR CIRCUIT MANAGER Unavailable [phone] Jose Francisco Johnson MD Unavailable Livan Sharif MD Unavailable Catherine Cm MD Unavailable + Sydnie Martinez RN Unavailable Unavailable Alfonso Renteria MD Unavailable [phone] Esha Grimm PA-C Primary Care Provider Cheng Todd PA-C Unavailable Radha Lomeli RECESSING MACHINE OPERATOR CIRCUIT MANAGER Unavailable Jelena David Radha OD Unavailable [phone] Pao Joseph RN Unavailable Unavailable Esha Grimm PA-C Unavailable [phone] Valery Veronica PA-C Unavailable Rey Tay MD Unavailable Rocky Zepeda DO Unavailable Philip Dumont MD Unavailable Meredith Carrera PA-C Unavailable Neil Kent MD Unavailable Juan Pablo Emmanuel MD Unavailable Audrey Waite PA-C Unavailable Valery Veronica PA-C Unavailable [phone] Encounter Details Date Type Department Care Team (Late st Contact Info) Description 07/07/[address] [place] [phone] Livan Sharif MD [address] [place] [address] Social History Tobacco Use Types Packs/Day Years [...] How often do you attend anabaptist or methodist serv ices? Never 09/22/2021 Do [...] points; Administer PHQ-9 if positive 1 05/13/2022 [facility]at ional [facility] - Occupational Stress Questionnaire Answer [...] a nursing home (including now)? No 09/22/2021 [place] Depression Scale Answer Date Recorded [place] Depression Score 5 01/14/2021 Last EPDS Self Harm Result Not on file 01/14 Education Answer Date Recorded What is the highest level of school you have completed or the highest degree you have received? 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 CONTACT ACID PLANT OPERATOR HELPER Gender Identity Female 03/02/2021 5:45 PM CDT Sexual Orientation Straight 02/28/2020 12 :51 AM CDT COVID-19 Exposure Response Date Recorded In the last 10 days, have yo u been in contact with someone who was confirmed or suspected to have Coronavirus/COVID-19? No / Unsure 06/25/2022 8:44 AM CONTACT ACID PLANT OPERATOR HELPER documented as of this encounter Plan of Treatment Upcoming Encounters Date Type Department Care Team (Late st Contact Info) Description 05/31/2024 8:40 AM CONTACT ACID PLANT OPERATOR HELPER Therapy Visit [facility] Rehabilitation Services [address] [place] [phone] Ingris Thompson, PT [facility] [address] [place] [address] 120325 05/31/2024 3:30 PM CONTACT ACID PLANT OPERATOR HELPER Office Visit [facility] Specialty [address] [place] [phone] Audrey Díaz, Herminia Koo MD [address] [place] [address] [phone] 06/04/2024 3:30 PM CONTACT ACID PLANT OPERATOR HELPER Office Visit [facility] Monserrat [address] [place] [address] [address] [place] [phone] [place] [address] [place] [address] [place] [address] 06/11/2024 10:30 AM CONTACT ACID PLANT OPERATOR HELPER Appointment [facility] Respiratory Therapy [address] [place] [address] Spec, Nurse Only Med 06/18/2024 2:50 PM CONTACT ACID PLANT OPERATOR HELPER Therapy Visit [facility] Rehabilitation Services [place] [address] [place] [address] [address] [place] [phone] Ingris Thompson, PT [facility] [address] [facility] [address] [place] [address] 06/21/2024 2:00 PM CONTACT ACID PLANT OPERATOR HELPER Office Visit [facility] Neurology Clinics - [place] [address] [facility], [address] [place] [phone] [place] [address] [place], [place] 58[address] Johnny Penn MD 5321 [place], [place] 9[address] 06/25/2024 8:30 AM CONTACT ACID PLANT OPERATOR HELPER Office Visit [address] [phone] Valery Veronica PA-C [address] [place] [place] [address] 11/28/2024 7:45 AM CDT Virtual Visit [facility] Gastroenterology Clinic [address] 4th [place] [phone] Meredith Carrera PA-C [address] [place] [address] [phone] documented as of this encounter Visit Diagnoses [...] as of this encounter Care Teams Director Internal Audit Relationship Specialty Start Date End Date Marija Edgar APRN CIRCUIT MANAGER PCP - General Nurse Practitioner 04/30/20 04/14/23 Esha Grimm PA-C [address] [place] [address] PCP - General Family Medicine 05/04/23 Lita Oseguera Personal Advocate & Liaison (PAL) 02/28/20 03/27/23 Marija Edgar APRN CIRCUIT MANAGER Assigned PCP 06/08/20 04/29/23 Keisha Dotson MD [address] [place], [place] 0860[address] Assigned Neuroscience Provider 06/04/20 04/01/23 Diana Desir [facility] [address] [place], [place] [address]886 Pharmacist Pharmacist 04/17/21 Rain Galaviz PA-C [address] [place] [address] [place]UT[place] [address] Physician Processing Mgr Dermatology 04/28/21 Tavia Wyatt MD [address] [facility] [address] [place] [address] Dermatology 07/14/21 Erica Farrell APRN CIRCUIT MANAGER [address] [place] [address] Nurse Practitioner Cardiovascular Disease 09/09/21 Rich Barrett MD [address] [facility], [facility] [address] [place], [place] [address] Physician Ophthalmology 01/21/22 Neil Kent MD 500 [place], [place] 292925 Dermatology 02/24/22 Roney Story DPM [address] [facility] [address] [place], [place] [address]897 Assigned Musculoskeletal Provider 03/20/22 08/13/22 Diana Desir, [facility] [address] [place] [address] Assigned MTM Pharmacist 04/07/22 [place] [address] [facility] [place] [address] Assigned Surgical Provider 05/08/22 10/08/22 Livan Sharif MD [address] [place] [address] Cardiovascular Disease 05/14/22 Livan Sharif MD [address], [facility] [address] [place] [address] Assigned Heart and Vascular Provider 06/12/22 07/23/22 Catherine Cm MD [address] [facility] [address] [place] [address] Cardiovascular Disease 07/21/22 Valery Veronica, PA-C [address] [place] [place] [address] 904915 Physician Processing Mgr Dermatology 07/21/22 Catherine Cm MD [address] [facility] [place] [address] Assigned Heart and Vascular Provider 07/24/22 11/05/22 Johnny Murillo MD [facility] [address] 969574 Assigned Musculoskeletal Provider 08/14/22 10/08/22 Brea Quinn APRN CIRCUIT MANAGER [address] [place] [address] [phone] Nurse Practitioner Dermatology 09/21/22 Brea Quinn APRN CIRCUIT MANAGER [address] [place] [address] [place] 449282 Assigned Surgical Provider 10/09/22 05/01/24 [place] [address] [place] [address] [phone] Assigned Musculoskeletal Provider 10/09/22 05/01/24 Livan Sharif MD [address], [facility] [address] [place] [address]405 Assigned Heart and Vascular Provider 11/06/22 11/12/22 Catherine Cm MD [address] [place], [place] 227545 Assigned Heart and Vascular Provider 11/13/22 05/27/23 Sydnie Martinez, RN Personal Advocate & Liaison (PAL) Family Medicine 03/28/23 07/31/23 Alfonso Renteria MD [address] [facility] 200 [place] [address] Assigned Neuroscience Provider 04/02/23 Cheng Todd PA-C [address] [place] [address] [phone] Assigned PCP 04/30/23 07/15/23 Radha Lomeli APRN CIRCUIT MANAGER [address] [place] [address] Assigned Heart and Vascular Provider 05/28/23 [place]elena David OD [address] [facility] [place] [address] Ophthalmology 06/15/23 Pao Joseph, VJ Personal Advocate & Liaison (PAL) Nurse 08/01/23 11/07/23 Esha Grimm PA-C [address] [place] [address] Assigned PCP 07/16/23 Valery Veronica PA-C 9[address] [place], [place] 044635 Physician Processing Mgr Dermatology 09/19/23 Rey Tay MD 9 [place] [address] MD Gastroenterology 09/20/23 Rocky Zepeda DO 500 [place], [place] 913[address] Physician Gastroenterology 09/20/23 Philip Dumont MD [address] [place] [address] 581785 Physician Ophthalmology 09/22/23 Meredith Carrera PA-C [address] [place] [address] [phone] Assigned Gastroenterology Provider 11/01/23 Neil Kent MD [address] [address] Dermatology 11/02/23 [place] [address] [place] [address] Neurological Surgery 12/26/23 Audrey Waite PA-C 500 [place] [address] Physician Processing Mgr Dermatology 02/28/24 Valery Veronica PA-C [address] [place] [address] Physician Processing Mgr Dermatology 04/10/24 documented as of this encounter
--- OUTSIDE RECORDS SUMMARY | 2024-05-27 08:50 | XMS_ITS | Encounter Summary ---
Author Organization [facility] Address [address] [place] [address] Care Team Providers Care Coal Sampler Name Role Phone Lita Oseguera Unavailable Unavailable Marija Edgar APRN MARKER MACHINE Primary Care Provider + Marija Edgar APRN MARKER MACHINE Unavailable [phone] Keisha Dotson MD Unavailable Diana Desir [facility] Unavailable [phone] Rain Galaviz PA-C Unavailable Tavia Wyatt MD Unavailable Unavailable Erica Farrell APRN MARKER MACHINE Unavailable Rich Barrett MD Unavailable [phone] Neil Kent MD Unavailable Diana Desir [facility] Unavailable Livan Sharif MD Unavailable Catherine Cm MD Unavailable + Valery Veronica PA-C Unavailable [phone] Catherine Cm MD Unavailable + Brea Quinn APRN MARKER MACHINE Unavailable [place], Brea P ASSET ADMINISTRATOR MARKER MACHINE Unavailable [phone] Jose Francisco Johnson MD Unavailable Livan Sharif MD Unavailable Catherine Cm MD Unavailable + Sydnie Martinez RN Unavailable Unavailable Alfonso Renteria MD Unavailable [phone] Esha Grimm PA-C Primary Care Provider Cheng Todd PA-C Unavailable Armani Radha Sia ASSET ADMINISTRATOR MARKER MACHINE Unavailable Jelena David OD Unavailable Pao Joseph RN Unavailable Unavailable Esha Grimm PA-C Unavailable [phone] Valery Veronica PA-C Unavailable Rey Tay MD Unavailable Rocky Zepeda DO Unavailable Philip Dumont MD Unavailable [phone] Meredtih Carrera PA-C Unavailable Neil Kent MD Unavailable Juan Pablo Emmanuel MD Unavailable Audrey Waite PA-C Unavailable [phone] JeremíasValery damon PA-C Unavailable Encounter Details Date Type Department Care Team (Late st Contact Info) Description 10/22/2022 [facility] Medical Advice [facility] Sports Medicine Clinic [place] [address] [place] [address] [address] [place] [address] [place] [address] [facility] [address] [place] [address] Social History Tobacco Use Types [...] How often do you attend mandaen or zoroastrianism serv ices? Never 09/22/2021 Do [...] Answer Date Recorded PHQ-2 Score 1 10/11/2022 [facility]at [facility] [...] in a mcc (including now)? No 09/22/2021 [place] Depression Scale Answer Date Recorded [place] Depression Score 5 01/14/2021 Last EPDS Self Harm Result Not on file 01/14 Education Answer Date Recorded What is the highest level of school you have completed or the highest degree you have received? 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 TRANSITION NURSE Gender Identity Female 03/02/2021 5:45 PM CDT [...] st Contact Info) Description 05/31/2024 8:40 AM TRANSITION NURSE Therapy Visit [facility] Rehabilitation Services [address] [place] [phone] Ingris Thompson, PT [facility] [address] [place] [address] 106 [place] [address] 05/31/2024 3:30 PM TRANSITION NURSE Office Visit [facility] Specialty Clinic [address] [phone] Audrey Díaz PA-C Khan, Waseem, MD [address] [place] [address] [phone] 06/04/2024 3:30 PM TRANSITION NURSE Office Visit [address] [place] [phone] Jelena David, OD [address] [place] [address] [place] K[place] [address] 06/11/2024 10:30 AM TRANSITION NURSE Appointment [facility] Respiratory Therapy [address] [place] [phone] Spec, Nurse Only Med 06/18/2024 2:50 PM TRANSITION NURSE Therapy Visit [facility] Rehabilitation Services [address] [place] [phone] Ingris Thompson, PT [facility] [address] [facility] 106 [place], [place] [address] 06/21/2024 2:00 PM TRANSITION NURSE Office Visit [facility] Neurology Clinics [facility] [address] [place] [address], [address] [place] [address] [place] [address] [place], [place] [address] Johnny Penn MD 4005 [place], [place] 2526[address] 06/25/2024 8:30 AM TRANSITION NURSE Office Visit [address] [phone] Valery Veronica PA-C [address] [place] [address] 392815 11/28/2024 7:45 AM CDT Virtual Visit [facility] Gastroenterology Clinic [address] 4th [place] [phone] Meredith Carrera PA-C [address] [place] [address] 118015 documented as of this encounter Visit Diagnoses [...] documented as of this encounter Care Teams Coal Sampler Relationship Specialty Start Date End Date Marija Edgar APRN MARKER MACHINE PCP - General Nurse Practitioner 04/30/20 04/14/23 Esha Grimm PA-C [address] [place] [address] PCP - General Family Medicine 05/04/23 Lita Oseguera Personal Advocate & Liaison (PAL) 02/28/20 03/27/23 Marija Edgar APRN MARKER MACHINE Assigned PCP 06/08/20 04/29/23 Keisha Dotson MD 909 [place] [address] Assigned Neuroscience Provider 06/04/20 04/01/23 Diana Desir [facility] 30[address] [place] [address] Pharmacist Pharmacist 04/17/21 Rain Galaviz PA-C [address] [place] [address] [address] [facility] [place] [address] Physician Foundry Patternmaker Dermatology 04/28/21 Tavia Wyatt MD [address] [place] [address] [address] [place] [address] Dermatology 07/14/21 Erica Farrell APRN MARKER MACHINE [address] [place], [place] [address] Nurse Practitioner Cardiovascular Disease 09/09/21 Rich Barrett MD [address] [place] [address] 433265 Physician Ophthalmology 01/21/22 Neil Kent MD [address] [place] [address] 476395 Dermatology 02/24/22 [facility] [address] [place] [address] [phone] Assigned [place] Pharmacist 04/07/22 Livan Sharif MD [address], [facility]00 [place] [address] Cardiovascular Disease 05/14/22 Catherine Cm MD [address] [facility]00 [place] [address] Cardiovascular Disease 07/21/22 Valery Veronica PA-C [address] [place] [address] 494815 Physician Foundry Patternmaker Dermatology 07/21/22 Catherine Cm MD [address] [facility] [address] [place] [address] Assigned Heart and Vascular Provider 07/24/22 11/05/22 Brea Quinn APRN MARKER MACHINE 500 [place] [address] Nurse Practitioner Dermatology 09/21/22 Brea Quinn APRN MARKER MACHINE [address] [place] [address] Assigned Surgical Provider 10/09/22 05/01/24 [place] [address] [address] Assigned Musculoskeletal Provider 10/09/22 05/01/24 Livan Sharif MD [address], [facility] [address] [place] [address] Assigned Heart and Vascular Provider 11/06/22 11/12/22 Catherine Cm MD [address] [facility] [address] [place] [address] Assigned Heart and Vascular Provider 11/13/22 05/27/23 Sydnie Martinez, RN Personal Advocate & Liaison (PAL) Family Medicine 03/28/23 07/31/23 Alfonso Renteria MD 5775 [facility] 200 [place], [place] 147396 Assigned Neuroscience Provider 04/02/23 Cheng Todd PA-C [address] [place] [address] [phone] Assigned PCP 04/30/23 07/15/23 Radha Lomeli APRN MARKER MACHINE [address] [facility] [address] [place] [address] Assigned Heart and Vascular Provider 05/28/23 Jelena aDvid OD [address] [facility] [place] [address] MD Ophthalmology 06/15/23 Pao Joseph, VJ Personal Advocate & Liaison (PAL) Nurse 08/01/23 11/07/23 Esha Grimm PA-C [address] [place] [address] Assigned PCP 07/16/23 Valery Veronica PA-C [address] [place] [address] Physician Foundry Patternmaker Dermatology 09/19/23 Rey Tay MD [address] [place] [address] Gastroenterology 09/20/23 Rocky Zepeda DO [address] [place] [address] 529645 Physician Gastroenterology 09/20/23 Philip Dumont MD [address] [place] [address] 597935 Physician Ophthalmology 09/22/23 Meredith Carrera PA-C [address] [place], [place] 164595 Assigned Gastroenterology Provider 11/01/23 Neil Kent MD [address] [phone] Dermatology 11/02/23 [place] [address] [place] [address] Neurological Surgery 12/26/23 Audrey Waite PA-C [address] [place] [address] 048525 Physician Foundry Patternmaker Dermatology 02/28/24 Valery Veronica PA-C [address]27 [address], [place] [address] Physician Foundry Patternmaker Dermatology 04/10/24 documented as of this encounter
--- OUTSIDE RECORDS SUMMARY | 2024-05-27 08:50 | XMS_ITS | Encounter Summary ---
Author Organization [facility] Address [address] [place] [address] Care Team Providers Care Transfer Coordinator Name Role Phone Lita Oseguera Unavailable Unavailable Marija Edgar APRN HUB BORER Primary Care Provider + Marija Edgar APRN HUB BORER Unavailable [phone] Keisha Dotson MD Unavailable Diana Desir [facility] Unavailable [phone] Rain Galaviz PA-C Unavailable Tavia Wyatt MD Unavailable Unavailable Erica Farrell APRN HUB BORER Unavailable Rich Barrett MD Unavailable Neil Kent MD Unavailable Roney Story DPM Unavailable [phone] Diana Desir [facility] Unavailable Jelena David OD Unavailable Livan Sharif MD Unavailable Livan Sharif MD Unavailable Catherine Cm MD Unavailable + Valery Veronica PA-C Unavailable Catherine Cm MD Unavailable + Johnny uMrillo MD Unavailable [phone] Brea Quinn FLIGHT/TRANSPORT NURSE HUB BORER Unavailable [phone] Brea Quinn FLIGHT/TRANSPORT NURSE HUB BORER Unavailable [phone] Jose Francisco Johnson MD Unavailable Livan Sharif MD Unavailable Catherine Cm MD Unavailable + Sydnie Martinez RN Unavailable Unavailable Alfonso Renteria MD Unavailable [phone] Esha Grimm PA-C Primary Care Provider Cheng Todd PA-C Unavailable Radha Lomeli FLIGHT/TRANSPORT NURSE HUB BORER Unavailable Jelena David Radha OD Unavailable [phone] Pao Joseph RN Unavailable Unavailable Esha Grimm PA-C Unavailable [phone] Valery Veronica PA-C Unavailable Rey Tay MD Unavailable Rocky Zepeda DO Unavailable Philip Dumont MD Unavailable [phone] Meredith Carrera PA-C Unavailable Neil Kent MD Unavailable Juan Pablo Emmanuel MD Unavailable Audrey Waite PA-C Unavailable Valery Veronica PA-C Unavailable [phone] Encounter Details Date Type Department Care Team (Late st Contact Info) Description 07/20/[address] [place] [phone] Livan Sharif MD [address] [place] [address] Social History Tobacco Use Types Packs/Day Years [...] How often do you attend shinto or cheondoism serv ices? Never 09/22/2021 Do [...] points; Administer PHQ-9 if positive 1 05/13/2022 [facility] - Occupational Stress Questionnaire Answer [...] in a mcc (including now)? No 09/22/2021 Harris Depression Scale Answer Date Recorded Harris Depression Score 5 01/14/2021 Last EPDS Self Harm Result Not on file 01/14 Education Answer Date Recorded What is the highest level of school you have completed or the highest degree you have received? 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 BOTTLE BLOWER Gender Identity Female 03/02/2021 5:45 PM CDT Sexual Orientation Straight 02/28/2020 12 :51 AM CDT COVID-19 Exposure Response Date Recorded In the last 10 days, have yo u been in contact with someone who was confirmed or suspected to have Coronavirus/COVID-19? No / Unsure 07/23/2022 6:45 AM BOTTLE BLOWER documented as of this encounter Plan of Treatment Upcoming Encounters Date Type Department Care Team (Late st Contact Info) Description 05/31/2024 8:40 AM BOTTLE BLOWER Therapy Visit [facility] [address] [place] [phone] Ingris Thompson, PT [facility] [address] [place] [address] [phone] 05/31/2024 3:30 PM BOTTLE BLOWER Office Visit [facility] Specialty [address] [place] [phone] Audrey Díaz, Herminia Koo MD [address] [place] [address] [phone] 06/04/2024 3:30 PM BOTTLE BLOWER Office Visit [facility] [place] [address] [place] [address] [address] [place] [phone] [place] [address] [place] [address] [place] [address] 06/11/2024 10:30 AM BOTTLE BLOWER Appointment [facility] Respiratory Therapy [address] [place] [address] Spec, Nurse Only Med 06/18/2024 2:50 PM BOTTLE BLOWER Therapy Visit [facility] [place] [address] [place] [address] [address] [place] [phone] Ingris Thompson, PT [facility] [address] [facility] [address] [place] [address] 06/21/2024 2:00 PM BOTTLE BLOWER Office Visit [facility]rology [facility] - [place] [address] [facility] [address] [facility], [address] [place] [phone] [place] [address] [place], [place] [address] Johnny Penn MD [address] [place], [place] 75[address] 06/25/2024 8:30 AM BOTTLE BLOWER Office Visit [address] [phone] Valery Veronica PA-C [address] [place] [address] 11/28/2024 7:45 AM CDT Virtual Visit [facility] G[facility] [address] 4th [place] [phone] Meredith Carrera PA-C [address] [place] [address] 230925 documented as of this encounter Visit Diagnoses [...] documented as of this encounter Care Teams Transfer Coordinator Relationship Specialty Start Date End Date Marija Edgar APRN HUB BORER PCP - General Nurse Practitioner 04/30/20 04/14/23 Esha Grimm PA-C [address] [place] [address] PCP - General Family Medicine 05/04/23 Lita Oseguera Personal Advocate & Liaison (PAL) 02/28/20 03/27/23 Marija Edgar APRN HUB BORER Assigned PCP 06/08/20 04/29/23 Keisha Dotson MD [address] [place], [place] 559025 Assigned Neuroscience Provider 06/04/20 04/01/23 Diana Desir [facility] [address] [place], [place] 2870[address] Pharmacist Pharmacist 04/17/21 Rain Galaviz PA-C [address] [place] [address] [place] [address] Physician Manager Video Games Dermatology 04/28/21 Tavia Wyatt MD [address] [facility] [address] [place] [address] Dermatology 07/14/21 Erica Farrell APRN HUB BORER [address] [place] [address] Nurse Practitioner Cardiovascular Disease 09/09/21 Rich Barrett MD [address] [facility] [address] [place], [place] 7136[address] Physician Ophthalmology 01/21/22 Neil Kent MD 500 [place], [place] 365805 Dermatology 02/24/22 Roney Story DPM [address] [facility] [address] [place], [place] 253247 Assigned Musculoskeletal Provider 03/20/22 08/13/22 Diana Desir, [facility] [address] [place] [address] Assigned MTM Pharmacist 04/07/22 Jelena David OD [address] [facility] [place] [address] Assigned Surgical Provider 05/08/22 10/08/22 Livan Sharif MD [address] [place] [address] Cardiovascular Disease 05/14/22 Livan Sharif MD [address], [facility] [address] [place] [address] Assigned Heart and Vascular Provider 06/12/22 07/23/22 Catherine Cm MD [address] [facility] [address] [place] [address] Cardiovascular Disease 07/21/22 Valery Veronica, PA-C [address] [place] [address] 821545 Physician Manager Video Games Dermatology 07/21/22 Catherine Cm MD [address] [facility] [place] [address] Assigned Heart and Vascular Provider 07/24/22 11/05/22 Johnny Murillo MD [facility] [address] 291404 Assigned Musculoskeletal Provider 08/14/22 10/08/22 Brea Quinn APRN HUB BORER [address] [place] [address] 435685 Nurse Practitioner Dermatology 09/21/22 Brea Quinn APRN HUB BORER [address] [place] [address] [place] 334102 Assigned Surgical Provider 10/09/22 05/01/24 [place] [address] [place] [address] 082637 Assigned Musculoskeletal Provider 10/09/22 05/01/24 Livan Sharif MD [address], [facility] [address] [place] 7[address]35 Assigned Heart and Vascular Provider 11/06/22 11/12/22 Catherine Cm MD [address] [place], [place] 652235 Assigned Heart and Vascular Provider 11/13/22 05/27/23 Sydnie Martinez, RN Personal Advocate & Liaison (PAL) Family Medicine 03/28/23 07/31/23 Alfonso Renteria MD [address] [facility] 200 [place] [address] Assigned Neuroscience Provider 04/02/23 Cheng Todd PA-C [address] [place] [address] [id number] Assigned PCP 04/30/23 07/15/23 Radha Lomeli APRN HUB BORER [address] [place] [address] Assigned Heart and Vascular Provider 05/28/23 Jelena David OD [address] [facility] [place] [address] Ophthalmology 06/15/23 Pao Joseph, VJ Personal Advocate & Liaison (PAL) Nurse 08/01/23 11/07/23 Esha Grimm PA-C [address] [place] [address] Assigned PCP 07/16/23 Valery Veronica PA-C [address] [place], [place] 213035 Physician Manager Video Games Dermatology 09/19/23 Rey Tay MD 9 [place] [address] MD Gastroenterology 09/20/23 Rocky Zepeda DO 500 [place], [place] 988065 Physician Gastroenterology 09/20/23 Philip Dumont MD [address] [place] [address] 424945 Physician Ophthalmology 09/22/23 Meredith Carrera PA-C [address] [place] [address] 730945 Assigned Gastroenterology Provider 11/01/23 Neil Kent MD [address] [address] Dermatology 11/02/23 [place] [address] [place] [address] Neurological Surgery 12/26/23 Audrey Waite PA-C 500 [place] [address] Physician Manager Video Games Dermatology 02/28/24 Valery Veronica PA-C [address] [place] [address] Physician Manager Video Games Dermatology 04/10/24 documented as of this encounter
--- OUTSIDE RECORDS SUMMARY | 2024-05-27 08:50 | XMS_ITS | Encounter Summary ---
Author Organization [facility] Address [address] [place] [address] Care Team Providers Care Investment Recovery Technician Name Role Phone Lita Oseguera Unavailable Unavailable Marija Edgar APRN INSTRUCTOR BRIDGE Primary Care Provider + Marija Edgar APRN INSTRUCTOR BRIDGE Unavailable [phone] Keisha Dotson MD Unavailable Diana Desir [facility] Unavailable Rain Galaviz PA-C Unavailable Tavia Wyatt MD Unavailable Unavailable Erica Farrell APRN INSTRUCTOR BRIDGE Unavailable Rich Barrett MD Unavailable [phone] Neil Kent MD Unavailable Diana Desir [facility] Unavailable Jelena David OD Unavailable Livan Sharif MD Unavailable Catherine Cm MD Unavailable + Valery Veronica PA-C Unavailable Catherine Cm MD Unavailable + Johnny Murillo MD Unavailable [phone] Brea Quinn INTEGRATED CIRCUIT LAYOUT DESIGNER INSTRUCTOR BRIDGE Unavailable [phone] Brea Quinn INTEGRATED CIRCUIT LAYOUT DESIGNER INSTRUCTOR BRIDGE Unavailable [phone] Jose Francisco Johnson MD Unavailable Livan Sharif MD Unavailable Catherine Cm MD Unavailable + Sydnie Martinez RN Unavailable Unavailable Alfonso Renteria MD Unavailable [phone] Esha Grimm PA-C Primary Care Provider Cheng Todd PA-C Unavailable Radha Lomeli INTEGRATED CIRCUIT LAYOUT DESIGNER INSTRUCTOR BRIDGE Unavailable Jelena David OD Unavailable Pao Joseph RN Unavailable Unavailable Esha Grimm PA-C Unavailable [phone] Valery Veronica PA-C Unavailable Rey Tay MD Unavailable Rocky Zepeda DO Unavailable Philip Dumont MD Unavailable [phone] Meredith Carrera PA-C Unavailable Neil Kent MD Unavailable Juan Pablo Emmanuel MD Unavailable Audrey Waite PA-C Unavailable Valery Veronica PA-C Unavailable Reason for Visit * Reason Onset Date Comments Call Back 09/21/2022 Change of provid er request Encounter Details Date Type Department Care Team (Late st Contact Info) Description 09/21/2022 Telephone [facility] [address] [facility], [address] [place] [phone] Keisha Dotson MD 9 [place], [place] 9[address] Call Back (Change of provider request) Social [...] How often do you attend mu-ism or shinto serv ices? Never 09/22/2021 Do [...] Answer Date Recorded PHQ-2 Score 2 08/27/2022 [facility] - [...] in a fdc (including now)? No 09/22/2021 Cr[place]all Depression Scale Answer Date Recorded Cr[place]all Depression Score 5 01/14/2021 Last EPDS Self Harm Result Not on file 01/14 Education Answer Date Recorded What is the highest level of school you have completed or the highest degree you have received? 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 ATOMIC PHYSICS PROFESSOR Gender Identity Female 03/02/2021 5:45 PM [...] Aleyda Guan - 09/21/2022 10:47 AM CDT [facility] Call Center Phone Message May a detailed message be left on voicemail: yes Reason for Call: Other: Change of provider request, Pt would like to be seen with another provider. Please call Pt back at [phone] to scheduled or advise. Action Taken: Message routed to: [facility] Neurology Travel Screening: Not Applicable documented in this encounter Plan of Treatment Upcoming Encounters Date Type Department Care Team (Late st Contact Info) Description 05/31/2024 8:40 AM ATOMIC PHYSICS PROFESSOR Therapy Visit [facility] [address] [place] [phone] Ingris Thompson, PT [facility] [address] [place] [address] 106 [place] [address] 05/31/2024 3:30 PM ATOMIC PHYSICS PROFESSOR Office Visit [facility] [address] [phone] Audrey Díaz, Herminia Koo MD [address] [place] [address] 06/04/2024 3:30 PM ATOMIC PHYSICS PROFESSOR Office Visit [facility] [place] [address] [facility] [address] [place] [phone] Jelena David, OD [address] [facility] [place] [address] 06/11/2024 10:30 AM ATOMIC PHYSICS PROFESSOR Appointment [facility] Respiratory Therapy [address] [place] [phone] Spec, Nurse Only Med 06/18/2024 2:50 PM ATOMIC PHYSICS PROFESSOR Therapy Visit [facility] [address] [place] [phone] Ingris Thompson, PT [facility] [address] [facility] 106 [place], [place] 8819[address] 06/21/2024 2:00 PM ATOMIC PHYSICS PROFESSOR Office Visit [facility] - [place] [address] [place] [address], [address] [place] [phone] [place] [address] [address] [place] [address] Johnny Penn MD [address]46 [facility] [place] [address] 06/25/2024 8:30 AM ATOMIC PHYSICS PROFESSOR Office Visit [address] [phone] Valery Veronica PAUcheC [address] [place] [address] 11/28/2024 7:45 AM CDT Virtual Visit [facility] Gastroenterology [address]th [place] [phone] Meredith Carrera PA-C 909 [place] [address] documented as of this encounter Visit Diagnoses [...] Depression Total Score: 5 08/27/19 1:14 PM ATOMIC PHYSICS PROFESSOR documented as of this encounter Care Teams Investment Recovery Technician Relationship Specialty Start Date End Date Marija Edgar APRN INSTRUCTOR BRIDGE PCP - General Nurse Practitioner 04/30/20 04/14/23 Esha Grimm PA-C [address] [place] [phone] PCP - General Family Medicine 05/04/23 Lita Oseguera Personal Advocate & Liaison (PAL) 02/28/20 03/27/23 Marija Edgar APRN INSTRUCTOR BRIDGE Assigned PCP 06/08/20 04/29/23 Keisha Dotson MD [address] [place] [address] Assigned Neuroscience Provider 06/04/20 04/01/23 Diana Desir, [facility] [address] [place] [address] Pharmacist Pharmacist 04/17/21 Rain Galaviz PA-C [address] [place] [address] [address] [place] [address] Physician Chalk Tester Dermatology 04/28/21 Tavia Wyatt MD [address] [place] [address] [place] [address] Dermatology 07/14/21 Erica Farrell APRN INSTRUCTOR BRIDGE [address] [place] 894185 Nurse Practitioner Cardiovascular Disease 09/09/21 Rich Barrett MD [address] [place] [address] [address] [place], [place] 783[address] Physician Ophthalmology 01/21/22 Neil Kent MD 500 [place] [address] Dermatology 02/24/22 Diana Desir, [facility] 3033 [place] [address] Assigned MTM Pharmacist 04/07/22 Jelena David OD [facility] [place] [address] Assigned Surgical Provider 05/08/22 10/08/22 Livan Sharif MD [address] [place] [address] Cardiovascular Disease 05/14/22 Catherine Cm MD [address] [email or web address] [address] [place] [address] Cardiovascular Disease 07/21/22 Valery Veronica, PA-C [address] [place] [address] Physician Chalk Tester Dermatology 07/21/22 Catherine Cm MD [address] [facility] [[email or web address] [address] [place] [address] Assigned Heart and Vascular Provider 07/24/22 11/05/22 Johnny Murillo MD [address] [place] [address] 347804 Assigned Musculoskeletal Provider 08/14/22 10/08/22 Brea Quinn APRN INSTRUCTOR BRIDGE [address] [place] [address] 078485 Nurse Practitioner Dermatology 09/21/22 Brea Quinn APRN INSTRUCTOR BRIDGE [address] [place] [address] [place] [address] Assigned Surgical Provider 10/09/22 05/01/24 [place] [address] [place] [address] Assigned Musculoskeletal Provider 10/09/22 05/01/24 Livan Sharif MD [address], [facility] [[email or web address] [address] [place] [address]45 Assigned Heart and Vascular Provider 11/06/22 11/12/22 Catherine Cm MD [address] [place] [address] Assigned Heart and Vascular Provider 11/13/22 05/27/23 Sydnie Martinez RN Personal Advocate & Liaison (PAL) Family Medicine 03/28/23 07/31/23 Alfonso Renteria MD 5775 [facility] 200 [place] [address] Assigned Neuroscience Provider 04/02/23 Cheng Todd PA-C [address] [place] [address] [id number] Assigned PCP 04/30/23 07/15/23 Radha Lomeli APRN INSTRUCTOR BRIDGE [address] [place] [address] Assigned Heart and Vascular Provider 05/28/23 Jelena David OD [facility] [place] [address] Ophthalmology 06/15/23 Pao Joseph, VJ Personal Advocate & Liaison (PAL) Nurse 08/01/23 11/07/23 Esha Grimm PA-C [address] [place] [phone] Assigned PCP 07/16/23 Valery Veronica PA-C 909 [place] [address] Physician Chalk Tester Dermatology 09/19/23 Rey Tay MD [address] [place] [address] MD Gastroenterology 09/20/23 Rocky Zepeda DO 500 [place] [address] Physician Gastroenterology 09/20/23 Philip Dumont MD 6 [place] [address] Physician Ophthalmology 09/22/23 Meredith Carrera PA-C 9 [place] [address] Assigned Gastroenterology Provider 11/01/23 Neil Kent MD [address] [address] Dermatology 11/02/23 [place] [address] 997977 Neurological Surgery 12/26/23 Audrey Waite PA-C 500 [place] [address] Physician Chalk Tester Dermatology 02/28/24 Valery Veronica PA-C [address]886 [address] [place] [address] Physician Chalk Tester Dermatology 04/10/24 documented as of this encounter
--- OUTSIDE RECORDS SUMMARY | 2024-05-27 08:50 | XMS_ITS | Encounter Summary ---
Author Organization [facility] Address [address] [place] [address] Care Team Providers Care Continuity Reader Name Role Phone Lita Oseguera Unavailable Unavailable Marija Edgar APRN SENIOR CATEGORY MANAGER Primary Care Provider + Marija Edgar APRN SENIOR CATEGORY MANAGER Unavailable [phone] Keisha Dotson MD Unavailable Diana Desir [facility] Unavailable [phone] Rain Galaviz PA-C Unavailable [phone] Tavia Wyatt MD Unavailable Unavailable Erica Farrell APRN SENIOR CATEGORY MANAGER Unavailable Rich Barrett MD Unavailable [phone] Neil Kent MD Unavailable Diana Desir [facility] Unavailable Livan Sharif MD Unavailable Catherine Cm MD Unavailable + Valery Veronica PA-C Unavailable [phone] Catherine Cm MD Unavailable + Brea Quinn APRN SENIOR CATEGORY MANAGER Unavailable [place], Brea P EMBALMER APPRENTICE SENIOR CATEGORY MANAGER Unavailable Jose Francisco Johnson MD Unavailable Livan Sharif MD Unavailable Catherine Cm MD Unavailable + Sydnie Martinez RN Unavailable Unavailable Alfonso Renteria MD Unavailable [phone] Esha Grimm PA-C Primary Care Provider Cheng Todd PA-C Unavailable Radha Lomeli EMBALMER APPRENTICE SENIOR CATEGORY MANAGER Unavailable Jelena David OD Unavailable Pao Joseph RN Unavailable Unavailable Esha Grimm PA-C Unavailable [phone] Valery Veronica PA-C Unavailable Rey Tay MD Unavailable Rocky Zepeda DO Unavailable Philip Dumont MD Unavailable Meredith Carrera PA-C Unavailable Neil Kent MD Unavailable Juan Pablo Emmanuel MD Unavailable [phone] Audrey Waite PA-C Unavailable JeremíasValery damon PA-C Unavailable Reason for Visit * Reason Onset Date Comments Prior Auth - Medication 10/12/2022 Lidocain e (LIDOCARE) 4 % Patch - EPA DENIED Encounter Details Date Type Department Care Team (Late st Contact Info) Description 10/12/2022 [facility] [id number] [place] [phone] Lauren Claudio PA-C [address] [place] [address] Prior Auth - Medication (Lidocaine (LIDOCARE) 4 [...] often do you attend jewish or adventist serv ices? Never 09/22/2021 Do you belong [...] 1 10/11/2022 [facility] - Occupational [...] a nursing home (including now)? No 09/22/2021 Gos[place] Depression Scale Answer Date Recorded [place] Depression Score 5 01/14/2021 Last EPDS Self Harm Result Not on file 01/14 Education Answer Date Recorded What is the highest level of school you have completed or the highest degree you have received? 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 EEG TECHNICIAN Gender Identity Female 03/02/2021 5:45 PM [...] st Contact Info) Description 05/31/2024 8:40 AM EEG TECHNICIAN Therapy Visit [facility] [address] [place] [address] Ingris Thompson, PT [facility] [address] [place] [address] 05/31/2024 3:30 PM EEG TECHNICIAN Office Visit [facility] [place] [address] [place] [phone] Audrey Díaz PA-C Khan, Waseem, MD [address] [place] [address] 06/04/2024 3:30 PM EEG TECHNICIAN Office Visit [facility] [address] [facility] [address] [place] [phone] Jelena David, [address] [place] [address] 06/11/2024 10:30 AM EEG TECHNICIAN Appointment [facility] Respiratory Therapy [address] [place] [phone] Spec, Nurse Only Med 06/18/2024 2:50 PM EEG TECHNICIAN Therapy Visit [facility] [address] [place] [phone] Ingris Thompson, PT [facility] [address] [place] [address] [address] [place] [address] 06/21/2024 2:00 PM EEG TECHNICIAN Office Visit [facility] - [place] [address] [place] [address], [address] [place] [phone] [place] [address] [place] [address] Johnny Penn MD [address] [place] [address] 06/25/2024 8:30 AM EEG TECHNICIAN Office Visit [facility] [address] [place] [phone] Valery Veronica PA-C [address] [place] [address] 11/28/2024 7:45 AM CDT Virtual Visit [facility] Gastroenterology Clinic [address] 4th [place] [phone] Meredith Carrera PA-C [address] [place] [address] 193365 documented as of this encounter Visit Diagnoses [...] documented as of this encounter Care Teams Continuity Reader Relationship Specialty Start Date End Date Marija Edgar APRN CNP PCP - General Nurse Practitioner 04/30/20 04/14/23 Esha Grimm PA-C [address] [place] [phone] PCP - General Family Medicine 05/04/23 Lita Oseguera Personal Advocate & Liaison (PAL) 02/28/20 03/27/23 Marija Edgar APRN SENIOR CATEGORY MANAGER Assigned PCP 06/08/20 04/29/23 Keisha Dotson MD [address] [place] [address] Assigned Neuroscience Provider 06/04/20 04/01/23 Diana Desir, [facility] [address] [place] [address] Pharmacist Pharmacist 04/17/21 Rain Galaviz PA-C [address] [place] [address] [address] [place] [address] Physician Mussel Farmer Dermatology 04/28/21 Tavia Wyatt MD [address] [place] [address] [address] [place] [address] Dermatology 07/14/21 Erica Farrell APRN SENIOR CATEGORY MANAGER [address] [place] [address] Nurse Practitioner Cardiovascular Disease 09/09/21 Rich Barrett MD [address] [address] Physician Ophthalmology 01/21/22 Neil Kent MD [address] [place] [address] Dermatology 02/24/22 Diana Desir, [facility] [address] [place] [address] Assigned MTM Pharmacist 04/07/22 Livan Sharif MD [address] [place] [address] [place] [address] Cardiovascular Disease 05/14/22 Catherine Cm MD [address] [place] [address] Cardiovascular Disease 07/21/22 Valery Veronica, PA-C [address] [place] [address] Physician Mussel Farmer Dermatology 07/21/22 Catherine Cm MD [address] [address] Assigned Heart and Vascular Provider 07/24/22 11/05/22 Brea Quinn APRN SENIOR CATEGORY MANAGER [address] [place] [address] 538435 Nurse Practitioner Dermatology 09/21/22 Brea Quinn APRN SENIOR CATEGORY MANAGER [address] [place] [address] Assigned Surgical Provider 10/09/22 05/01/24 [place] [address] [place] [address] Assigned Musculoskeletal Provider 10/09/22 05/01/24 Livan Sharif MD [address] [facility] [address] [place] [address] Assigned Heart and Vascular Provider 11/06/22 11/12/22 Catherine Cm MD [address] [place] [address] Assigned Heart and Vascular Provider 11/13/22 05/27/23 Sydnie Martinez RN Personal Advocate & Liaison (PAL) Family Medicine 03/28/23 07/31/23 Alfonso Renteria MD [address] [facility] 200 [place] [address] Assigned Neuroscience Provider 04/02/23 Cheng Todd PA-C [address] [place] [address] [id number] Assigned PCP 04/30/23 07/15/23 Radha Lomeli APRN SENIOR CATEGORY MANAGER [address] [place] [address] Assigned Heart and Vascular Provider 05/28/23 Jelena David OD [facility] [place] [address] Ophthalmology 06/15/23 Pao Joseph, VJ Personal Advocate & Liaison (PAL) Nurse 08/01/23 11/07/23 Esha Grimm PA-C [address] [place] [address] Assigned PCP 07/16/23 Valery Veronica PA-C 9 [place] [address] Physician Mussel Farmer Dermatology 09/19/23 Rey Tay MD 9 [place] [address] MD Gastroenterology 09/20/23 Rocky Zepeda DO 500 [place] [address] Physician Gastroenterology 09/20/23 Philip Dumont MD 6 [place] [address] Physician Ophthalmology 09/22/23 Meredith Carrera PA-C [address] [place] [address] Assigned Gastroenterology Provider 11/01/23 Neil Kent MD [address] [address] Dermatology 11/02/23 [place] [address] [facility] [place], [place] 729[address] Neurological Surgery 12/26/23 Audrey Waite PA-C 500 [place] [address] Physician Mussel Farmer Dermatology 02/28/24 Valery Veronica PA-C [address]604 [address] [place] [address] Physician Mussel Farmer Dermatology 04/10/24 documented as of this encounter
--- OUTSIDE RECORDS SUMMARY | 2024-05-27 08:50 | XMS_ITS | Encounter Summary ---
Author Organization [facility] Address [address] [place] [address] Care Team Providers Care Desulfurizer Operator Name Role Phone Lita Oseguera Unavailable Unavailable Marija Edgar APRN COMPUTER CLERK Primary Care Provider + Marija Edgar APRN COMPUTER CLERK Unavailable [phone] Keisha Dotson MD Unavailable Diana Desir [facility] Unavailable Rain Galaviz PA-C Unavailable [phone] Tavia Wyatt MD Unavailable Unavailable Erica Farrell APRN COMPUTER CLERK Unavailable Rich Barrett MD Unavailable [phone] Neil Kent MD Unavailable Diana Desir [facility] Unavailable Jelena David OD Unavailable Livan Sharif MD Unavailable Catherine Cm MD Unavailable + Valery Veronica PA-C Unavailable Catherine Cm MD Unavailable + Johnny Murillo MD Unavailable [phone] Brea Quinn CMM OPERATOR COMPUTER CLERK Unavailable [phone] Brea Quinn CMM OPERATOR COMPUTER CLERK Unavailable [phone] Jose Francisco Johnson MD Unavailable Livan Sharif MD Unavailable Catherine Cm MD Unavailable + Sydnie Martinez RN Unavailable Unavailable Alfonso Renteria MD Unavailable [phone] Esha Grimm PA-C Primary Care Provider Cheng Todd PA-C Unavailable Radha Lomeli CMM OPERATOR COMPUTER CLERK Unavailable Jelena David OD Unavailable Pao Joseph RN Unavailable Unavailable Esha Grimm PA-C Unavailable [phone] Valery Veronica PA-C Unavailable [phone] Rey Tay MD Unavailable Rocky Zepeda DO Unavailable Philip Dumont MD Unavailable [phone] Meredith Carrera PA-C Unavailable Neil Kent MD Unavailable Juan Pablo Emmanuel MD Unavailable [phone] Audrey Waite PA-C Unavailable Valery Veronica PA-C Unavailable [phone] Encounter Details Date Type Department Care Team (Late st Contact Info) Description 10/06/2022 [facility] [address] [place] [address] [place], [place] [phone] Brea Quinn, CMM OPERATOR COMPUTER CLERK [address] [facility] [place] [address] Social History Tobacco Use Types Packs/Day Years [...] How often do you attend taoist or pentecostalism serv ices? Never 09/22/2021 Do [...] points; Administer PHQ-9 if positive 1 10/10/2022 [facility] - [...] in a fci (including now)? No 09/22/2021 Hamilton Depression Scale Answer Date Recorded Hamilton [...] PM CDT Legal Sex Female 4:13 AM CCO Gender Identity Female 03/02/2021 5:45 PM CDT [...] st Contact Info) Description 05/31/2024 8:40 AM CCO Therapy Visit [address] [place] [address] Ingris Thompson, PT [facility] [address] [place] [address] 106 [place], [place] 240605 05/31/2024 3:30 PM CCO Office Visit [facility] [address] [phone] Audrey Díaz, Herminia Koo MD [address] [place] [address] 06/04/2024 3:30 PM CCO Office Visit [facility] [place] [address] [place] [address] [address] [place] [phone] Jelnea David OD [address] [place] [address] [place] [address] 06/11/2024 10:[address] [facility] Respiratory Therapy [address] [place] [phone] Spec, Nurse Only Med 06/18/2024 2:50 PM CCO Therapy Visit [facility] [address] [place] [phone] Ingris Thompson, PT [facility] [address] [facility] 106 [place], [place] 382325 06/21/2024 2:00 PM CCO Office Visit [facility] - [place] [address] [facility], [address] [place] [phone] [place] [address] [place], [place] [phone] Johnny Penn MD [address] [place], [place] [address] 06/25/2024 8:30 AM CCO Office Visit [address] [phone] Valery Veronica PAUcheC [address] [place] [address]055 11/28/2024 7:45 AM CDT Virtual Visit [facility] Gastroenterology [facility] [address] 4th [place] [phone] Meredith Carrera PA-C [address] [place] [address] 645915 documented as of this encounter Visit Diagnoses [...] Depression Total Score: 5 08/27/19 1:14 PM CCO documented as of this encounter Care Teams Desulfurizer Operator Relationship Specialty Start Date End Date Marija Edgar APRN COMPUTER CLERK PCP - General Nurse Practitioner 04/30/20 04/14/23 Esha Grimm PA-C [address] [place] [phone] PCP - General Family Medicine 05/04/23 Lita Oseguera Personal Advocate & Liaison (PAL) 02/28/20 03/27/23 Marija Edgar APRN COMPUTER CLERK Assigned PCP 06/08/20 04/29/23 Keisha Dotson MD 909 [place], [place] 245565 Assigned Neuroscience Provider 06/04/20 04/01/23 Diana Desir, [facility] [address] [place] [address] Pharmacist Pharmacist 04/17/21 Rain Galaviz PA-C [address] [place] [address] [address] [facility] [address] Physician Production Team Member Dermatology 04/28/21 Tavia Wyatt MD [address] [place] [address] [place] [address] Dermatology 07/14/21 Erica Farrell APRN COMPUTER CLERK [address] [place] [address] Nurse Practitioner Cardiovascular Disease 09/09/21 Rich Barrett MD [address] 010[address] Physician Ophthalmology 01/21/22 Neil Kent MD 500 [place], [place] [phone] Dermatology 02/24/22 Diana Desir, [facility] [address] [place], [place] [address]606 Assigned MTM Pharmacist 04/07/22 Jelena David OD [address] [facility] [place] [address] Assigned Surgical Provider 05/08/22 10/08/22 Livan Sharif MD [address] [place] [address] [place] [address] Cardiovascular Disease 05/14/22 Catherine Cm MD [address] [facility] [place] 511515 Cardiovascular Disease 07/21/22 Valery Veronica, PA-C 909 [place], [place] 613885 Physician Production Team Member Dermatology 07/21/22 Catherine Cm MD [address] [place] [address] [place] [address] Assigned Heart and Vascular Provider 07/24/22 11/05/22 Johnny Murillo MD [address] [place] [address] 572004 Assigned Musculoskeletal Provider 08/14/22 10/08/22 Brea Quinn APRN COMPUTER CLERK [address] [place] [address] 359475 Nurse Practitioner Dermatology 09/21/22 Brea Quinn APRN COMPUTER CLERK [address] [place] [address] [place] [address] Assigned Surgical Provider 10/09/22 05/01/24 [place] [address] [place] [address] Assigned Musculoskeletal Provider 10/09/22 05/01/24 Livan Sharif MD [address] [place] [address] [place] [address] Assigned Heart and Vascular Provider 11/06/22 11/12/22 Catherine Cm MD [address] [place] [address] [place] [address] Assigned Heart and Vascular Provider 11/13/22 05/27/23 Sydnie Martinez RN Personal Advocate & Liaison (PAL) Family Medicine 03/28/23 07/31/23 Alfonso Renteria MD [address] [facility] [address] 200 [place] [address] Assigned Neuroscience Provider 04/02/23 Cheng Todd PA-C [address] [place] [address] [phone] Assigned PCP 04/30/23 07/15/23 Radha Lomeli APRN COMPUTER CLERK [address] [facility] [address] [place], [place] 244195 Assigned Heart and Vascular Provider 05/28/23 Jelena David OD [address] [facility] [address] [place] [phone] Ophthalmology 06/15/23 Pao Joseph, VJ Personal Advocate & Liaison (PAL) Nurse 08/01/23 11/07/23 Esha Grimm PA-C [address] [place] [address] Assigned PCP 07/16/23 Valery Veronica PA-C [address] [place] [address] 799845 Physician Production Team Member Dermatology 09/19/23 Rey Tay MD [address] [place] [address] 333955 Gastroenterology 09/20/23 Rocky Zepeda DO [address] [place] [address] [phone] Physician Gastroenterology 09/20/23 Philip Dumont MD 516 [place], [place] 190915 Physician Ophthalmology 09/22/23 Meredith Carrera PA-C [address] [place] [address] 062665 Assigned Gastroenterology Provider 11/01/23 Neil Kent MD [address] 666[address] MD Dermatology 11/02/23 [place] [address] [place] [address] 239397 Neurological Surgery 12/26/23 Audrey Waite PA-C 500 [place], [place] 140405 Physician Production Team Member Dermatology 02/28/24 Valery Veronica PA-C [address] [place] [address] Physician Production Team Member Dermatology 04/10/24 documented as of this encounter
--- OUTSIDE RECORDS SUMMARY | 2024-05-27 08:50 | XMS_ITS | Encounter Summary ---
Author Organization [place] Address [address] [place] [address] Care Team Providers Care Coke Loader Name Role Phone Lita Oseguera Unavailable Unavailable Marija Edgar APRN INSIDE SALES COORDINATOR Primary Care Provider + Marija Edgar APRN INSIDE SALES COORDINATOR Unavailable [phone] Keisha Dotson MD Unavailable Diana Desir [facility] Unavailable Rain Galaviz PA-C Unavailable Tavia Wyatt MD Unavailable Unavailable Erica Farrell APRN INSIDE SALES COORDINATOR Unavailable Rich Barrett MD Unavailable Neil Kent MD Unavailable Roney Story DPM Unavailable [phone] Diana Desir [facility] Unavailable [phone] Jelena David OD Unavailable Livan Sharif MD Unavailable Livan Sharif MD Unavailable Catherine Cm MD Unavailable + Valery Veronica PA-C Unavailable [phone] Catherine Cm MD Unavailable + Johnny Murillo MD Unavailable [phone] Brea Quinn REDUCTION PLANT SUPERVISOR INSIDE SALES COORDINATOR Unavailable [phone] Brea Quinn REDUCTION PLANT SUPERVISOR INSIDE SALES COORDINATOR Unavailable [phone] Jose Francisco Johnson MD Unavailable Livan Sharif MD Unavailable Catherine Cm MD Unavailable + Sydnie Martinez RN Unavailable Unavailable Alfonso Renteria MD Unavailable [phone] Esha Grimm PA-C Primary Care Provider Cheng Todd PA-C Unavailable Radha Lomeli REDUCTION PLANT SUPERVISOR INSIDE SALES COORDINATOR Unavailable Jelena David Radha OD Unavailable [phone] Pao Joseph RN Unavailable Unavailable Esha Grimm PA-C Unavailable [phone] Valery Veronica PA-C Unavailable Rey Tay MD Unavailable Rocky Zepeda DO Unavailable Philip Dumont MD Unavailable Meredith Carrera PA-C Unavailable Neil Kent MD Unavailable Juan Pablo Emmanuel MD Unavailable Audrey Waite PA-C Unavailable Valery Veronica PA-C Unavailable [phone] Encounter Details Date Type Department Care Team (Late st Contact Info) Description 07/20/[address] [place] [phone] Pao Donahue RN Social History Tobacco Use Types [...] How often do you attend caodaism or religion serv ices? Never 09/22/2021 Do you belong [...] 05/13/2022 [facility] of Occupat ional [facility] - Occupational Stress Questionnaire Answer [...] in a correction (including now)? No 09/22/2021 [place] Depression Scale Answer Date Recorded [place] Depression Score 5 01/14/2021 Last EPDS Self Harm Result Not on file 01/14 Education Answer Date Recorded What is the highest level of school you have completed or the highest degree you have received? 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 BEAUTY SALES ADVISOR Gender Identity Female 03/02/2021 5:45 PM CDT Sexual Orientation Straight 02/28/2020 12 :51 AM CDT COVID-19 Exposure Response Date Recorded In the last 10 days, have yo u been in contact with someone who was confirmed or suspected to have Coronavirus/COVID-19? No / Unsure 07/23/2022 6:45 AM BEAUTY SALES ADVISOR documented as of this encounter Plan of Treatment Upcoming Encounters Date Type Department Care Team (Late st Contact Info) Description 05/31/2024 8:40 AM BEAUTY SALES ADVISOR Therapy Visit [address] 160 [place] [phone] Ingris Thompson, PT [facility] [address] [place] [address] 106 [place], [place] [address] 05/31/2024 3:30 PM BEAUTY SALES ADVISOR Office Visit [facility] [address] [phone] Audrey Díaz, Herminia Koo MD [address] [place] [address] 06/04/2024 3:30 PM BEAUTY SALES ADVISOR Office Visit [facility] [place] [address] [place] [address] [address] [place] [phone] Jelena David, SONJA [address] [place] [address] [place] [address] 06/11/2024 10:30 AM BEAUTY SALES ADVISOR Appointment [facility] Respiratory Therapy [address] [place] [address] Spec, Nurse Only Med 06/18/2024 2:50 PM BEAUTY SALES ADVISOR Therapy Visit [facility] [address] [place] [address] [address] [place] [phone] Ingris Thompson, PT [facility] [address] [facility] 106 [place], [place] [address] 06/21/2024 2:00 PM BEAUTY SALES ADVISOR Office Visit [facility] [place] [address] [facility], [address] [place] [phone] [place] [address] [place], [place] [address] Johnny Penn MD 97[address] [place], [place] [address] 06/25/2024 8:30 AM BEAUTY SALES ADVISOR Office Visit [address] [address] Valery Veronica PA-C [address] [place] [address] 015205 11/28/2024 7:45 AM CDT Virtual Visit [facility] Gastroenterology [address] 4th [place] [phone] Meredith Carrera PA-C [address] [place] [address] 379145 documented as of this encounter Visit Diagnoses [...] documented as of this encounter Care Teams Coke Loader Relationship Specialty Start Date End Date Marija Edgar APRN INSIDE SALES COORDINATOR PCP - General Nurse Practitioner 04/30/20 04/14/23 Esha Grimm PA-C [address] [place] [phone] PCP - General Family Medicine 05/04/23 Lita Oseguera Personal Advocate & Liaison (PAL) 02/28/20 03/27/23 Marija Edgar APRN INSIDE SALES COORDINATOR Assigned PCP 06/08/20 04/29/23 Keisha Dotson MD 909 [place] [address] Assigned Neuroscience Provider 06/04/20 04/01/23 [facility] 3033 [place] [address] Pharmacist Pharmacist 04/17/21 Rain Galaviz PA-C [address] [place] [address] [address] [place] [address] Physician Wedding Decorator Dermatology 04/28/21 Tavia Wyatt MD [address] [place] [address] [address] [place] [address] Dermatology 07/14/21 Erica Farrell APRN INSIDE SALES COORDINATOR [address] [place] [address] Nurse Practitioner Cardiovascular Disease 09/09/21 Rich Barrett MD [address] [address] Physician Ophthalmology 01/21/22 Neil Kent MD 500 [place], [place] 0[address]85 Dermatology 02/24/22 Roney Story DPM [address] [facility] [address] [place], [place] 18[address] Assigned Musculoskeletal Provider 03/20/22 08/13/22 Diana Desir, [facility] [address] [place], [place] 2485[address] Assigned MTM Pharmacist 04/07/22 J[place]ena David OD [address] [facility] [place] [address] Assigned Surgical Provider 05/08/22 10/08/22 Livan Sharif MD [address] [facility] [address] [place] [id number] Cardiovascular Disease 05/14/22 Livan Sharif MD [address] [facility] [address] [place] 829885 Assigned Heart and Vascular Provider 06/12/22 07/23/22 Catherine Cm MD [address] [facility]00 [place] [address] Cardiovascular Disease 07/21/22 Valery Veronica, PA-C [address] [place] [address] 173585 Physician Wedding Decorator Dermatology 07/21/22 Catherine Cm MD [address] [place] [address] [place] [address] Assigned Heart and Vascular Provider 07/24/22 11/05/22 Johnny Murillo MD [address] [place] [address] Assigned Musculoskeletal Provider 08/14/22 10/08/22 Brea Quinn APRN INSIDE SALES COORDINATOR [address] [place] [address] Nurse Practitioner Dermatology 09/21/22 Brea Quinn APRN INSIDE SALES COORDINATOR [address] [place] [address] [place] [address] Assigned Surgical Provider 10/09/22 05/01/24 [place] [address] [place] [address] Assigned Musculoskeletal Provider 10/09/22 05/01/24 Livan Sharif MD [address], [facility]00 [place] [address] Assigned Heart and Vascular Provider 11/06/22 11/12/22 Catherine Cm MD [address] [facility] [address] [place] [address] Assigned Heart and Vascular Provider 11/13/22 05/27/23 Sydnie Martinez RN Personal Advocate & Liaison (PAL) Family Medicine 03/28/23 07/31/23 Alfonso Renteria MD [address] [facility] 200 [place] [address] Assigned Neuroscience Provider 04/02/23 Cheng Todd PA-C [address] [place] [address] [id number] Assigned PCP 04/30/23 07/15/23 Radha Lomeli APRN INSIDE SALES COORDINATOR [address] [facility] [address] [place] [address] Assigned Heart and Vascular Provider 05/28/23 Jelena David OD [address] [facility] [address] [place] [id number] Ophthalmology 06/15/23 Pao Joseph, VJ Personal Advocate & Liaison (PAL) Nurse 08/01/23 11/07/23 Esha Grimm PA-C [address] [place] [address] Assigned PCP 07/16/23 Valery Veronica PA-C [address] [place] [address] Physician Wedding Decorator Dermatology 09/19/23 Rey Tay MD 9 [place] [address] MD Gastroenterology 09/20/23 Rocky Zepeda DO 500 [place] [address] Physician Gastroenterology 09/20/23 Philip Dumont MD 6 [place] [address] Physician Ophthalmology 09/22/23 Meredith Carrera PA-C 9 [place] [address] Assigned Gastroenterology Provider 11/01/23 Neil Kent MD [address] [place] [address] Dermatology 11/02/23 [place] [address] [place] [address] Neurological Surgery 12/26/23 Audrey Waite PA-C 500 [place] [address] Physician Wedding Decorator Dermatology 02/28/24 Valery Veronica PA-C [address] [place] [address] Physician Wedding Decorator Dermatology 04/10/24 documented as of this encounter
--- OUTSIDE RECORDS SUMMARY | 2024-05-27 08:50 | XMS_ITS | Encounter Summary ---
Author Organization [place] Address [address] [place] [address] Care Team Providers Care Molding Plasterer Name Role Phone Lita Oseguera Unavailable Unavailable Marija Edgar APRN LEASE OUT WORKER Primary Care Provider + Marija Edgar APRN LEASE OUT WORKER Unavailable [phone] Keisha Dotson MD Unavailable [phone] Diana Desir [facility] Unavailable [phone] Rain Galaviz PA-C Unavailable Tavia Wyatt MD Unavailable Unavailable Erica Farrell APRN LEASE OUT WORKER Unavailable Rich Barrett MD Unavailable [phone] Neil Kent MD Unavailable Diana Desir [facility] Unavailable [phone] Livan Sharif MD Unavailable Catherine Cm MD Unavailable + Valery Veronica PA-C Unavailable [phone] Catherine Cm MD Unavailable + Brea Quinn APRN LEASE OUT WORKER Unavailable [place], Brea P LICENSED STAFF MFT LEASE OUT WORKER Unavailable Jose Francisco Johnson MD Unavailable Livan Sharif MD Unavailable Catherine Cm MD Unavailable + Sydnie Martinez RN Unavailable Unavailable Alfonso Renteria MD Unavailable [phone] Esha Grimm PA-C Primary Care Provider [phone] Cheng Todd PA-C Unavailable Radha Lomeli LICENSED STAFF MFT LEASE OUT WORKER Unavailable Jelena David OD Unavailable Pao Joseph RN Unavailable Unavailable Esha Grimm PA-C Unavailable [phone] Valery Veronica PA-C Unavailable Rey Tay MD Unavailable Rocky Zepeda DO Unavailable Philip Dumont MD Unavailable Meredith Carrera PA-C Unavailable Neil Kent MD Unavailable Juan Pablo Emmanuel MD Unavailable [phone] Audrey Waite PA-C Unavailable JeremíasValery damon PA-C Unavailable Encounter Details Date Type Department Care Team (Late st Contact Info) Description 10/22/2022 MyC Medical Advice [facility] [address] [place] [phone] Lauren Claudio PA-C [address] [place] [address] Social History Tobacco Use Types [...] How often do you attend congregation or nondenominational serv ices? Never 09/22/2021 Do [...] Answer Date Recorded PHQ-2 Score 1 10/11/2022 [facility] of Occupat ional [facility] - Occupational Stress Questionnaire Answer Date Recorded [...] in a fdc (including now)? No 09/22/2021 [place] Depression Scale Answer Date Recorded [place] [...] PM CDT Legal Sex Female 4:13 AM WARD HELPER Gender Identity Female 03/02/2021 5:45 PM [...] st Contact Info) Description 05/31/2024 8:40 AM WARD HELPER Therapy Visit [address] 160 [place] [phone] Ingris Thompson, PT [facility] [address] [place] [address] 615845 05/31/2024 3:30 PM WARD HELPER Office Visit [address] [address] Audrey Díaz, Herminia Koo MD [address] [place] [address] 06/04/2024 3:30 PM WARD HELPER Office Visit [address] [place] [phone] Jelena David, [address] [place] [address] 06/11/2024 10:30 AM WARD HELPER Appointment [facility] Respiratory Therapy [address] [place] [phone] Spec, Nurse Only Med 06/18/2024 2:50 PM WARD HELPER Therapy Visit [address] 160 [place] [phone] Ingris Thompson, PT [address] [address] 06/21/2024 2:00 PM WARD HELPER Office Visit [facility] Neurology [facility] [address] [facility], [address] [place] [phone] [place] [address] [place], [place] [address] Johnny Penn MD [address] [place] [address] 06/25/2024 8:30 AM WARD HELPER Office Visit [address] [phone] Valery Veronica PA-C [address] [place] [address] 352865 11/28/2024 7:45 AM CDT Virtual Visit [facility] Gastroenterology Clinic [address] 4th [place] [phone] Meredith Carrera PA-C [address] [place] [address]1965 documented as of this encounter Visit Diagnoses [...] as of this encounter Care Teams Molding Plasterer Relationship Specialty Start Date End Date Marija Edgar APRN LEASE OUT WORKER PCP - General Nurse Practitioner 04/30/20 04/14/23 Esha Grimm PA-C [address] [place] [address] PCP - General Family Medicine 05/04/23 Lita Oseguera Personal Advocate & Liaison (PAL) 02/28/20 03/27/23 Marija Edgar APRN LEASE OUT WORKER Assigned PCP 06/08/20 04/29/23 Keisha Dotson MD 909 [place] [address] Assigned Neuroscience Provider 06/04/20 04/01/23 Diana Desir, [facility] 3033 [place] [address] Pharmacist Pharmacist 04/17/21 Rain Galaviz PA-C [address] [place] [address] [place] [address] Physician Informix Developer Dermatology 04/28/21 Tavia Wyatt MD [address] [place] [address] [place] [address] Dermatology 07/14/21 Erica Farrell APRN LEASE OUT WORKER 6405 [facility] [address] [place] [address] Nurse Practitioner Cardiovascular Disease 09/09/21 Rich Barrett MD 516 [facility] 9[address] [place] [address] Physician Ophthalmology 01/21/22 Neil Kent MD 500 [place], [place] 296935 MD Dermatology 02/24/22 Diana Desir, [facility] 30[address] [place], [place] 418[address] Assigned MTM Pharmacist 04/07/22 Livan Sharif MD [address], [address] [place], [place] [address] Cardiovascular Disease 05/14/22 Catherine Cm MD [address] 117[address] Cardiovascular Disease 07/21/22 Valery Veronica, PA-C 9 [place], [place] 996085 Physician Informix Developer Dermatology 07/21/22 Catherine Cm MD [address] [place], [place] [address]995 Assigned Heart and Vascular Provider 07/24/22 11/05/22 Brea Quinn APRN LEASE OUT WORKER 500 [place], [place] 578[address] Nurse Practitioner Dermatology 09/21/22 Brea Quinn APRN LEASE OUT WORKER [address] [place] [address] Assigned Surgical Provider 10/09/22 05/01/24 [place] [address] [place] [address] Assigned Musculoskeletal Provider 10/09/22 05/01/24 Livan Sharif MD [address] [facility] W2 [place] [address] Assigned Heart and Vascular Provider 11/06/22 11/12/22 Catherine Cm MD [address] [place] [address] [place] [address] Assigned Heart and Vascular Provider 11/13/22 05/27/23 Sydnie Martinez, VJ Personal Advocate & Liaison (PAL) Family Medicine 03/28/23 07/31/23 Alfonso Renteria MD 5775 [facility] 200 [place] [address] Assigned Neuroscience Provider 04/02/23 Cheng Todd PA-C [address] [place] [address] [id number] Assigned PCP 04/30/23 07/15/23 Radha Lomeli APRN LEASE OUT WORKER [address] [place] 378855 Assigned Heart and Vascular Provider 05/28/23 Jelena [place] OD [address] [facility] [place] [address] MD Ophthalmology 06/15/23 Pao Joseph, RN Personal Advocate & Liaison (PAL) Nurse 08/01/23 11/07/23 Esha Grimm PA-C [address] [place] [phone] Assigned PCP 07/16/23 Valery Veronica PA-C [address] [place] [address] 140295 Physician Informix Developer Dermatology 09/19/23 Rey Tay MD [address] [place] [address] 473815 MD Gastroenterology 09/20/23 Rocky Zepeda DO [address] [place] [address] 293855 Physician Gastroenterology 09/20/23 Philip Dumont MD [address] [place] [address] 504225 Physician Ophthalmology 09/22/23 Meredith Carrera PA-C [address] [place] [address] 070025 Assigned Gastroenterology Provider 11/01/23 Neil Kent MD [address] [address] Dermatology 11/02/23 [place] [address] [place] [address] Neurological Surgery 12/26/23 Audrey Waite PA-C 500 [place], [place] 928855 Physician Informix Developer Dermatology 02/28/24 Valery Veronica PA-C [address] [place] [address] Physician Informix Developer Dermatology 04/10/24 documented as of this encounter
--- OUTSIDE RECORDS SUMMARY | 2024-05-27 08:50 | XMS_ITS | Encounter Summary ---
Author Organization [place] Address [address] [place] [address] Care Team Providers Care Guitar Repairer Name Role Phone Lita Oseguera Unavailable Unavailable Marija Edgar APRN BURNISHER AND BUMPER Primary Care Provider + Marija Edgar APRN BURNISHER AND BUMPER Unavailable [phone] Keisha Dotson MD Unavailable Diana Desir [facility] Unavailable [phone] Rain Galaviz PA-C Unavailable Tavia Wyatt MD Unavailable Unavailable Erica Farrell APRN BURNISHER AND BUMPER Unavailable Rich Barrett MD Unavailable [phone] Neil Kent MD Unavailable Diana Desir [facility] Unavailable Livan Sharif MD Unavailable Catherine Cm MD Unavailable + Valery Veronica PA-C Unavailable [phone] Catherine Cm MD Unavailable + Brea Quinn APRN BURNISHER AND BUMPER Unavailable [place], Brea P MANAGER COMPLETIONS BURNISHER AND BUMPER Unavailable Jose Francisco Johnson MD Unavailable Livan Sharif MD Unavailable Catherine Cm MD Unavailable + Sydnie Martinez RN Unavailable Unavailable Alfonso Renteria MD Unavailable [phone] Esha Grimm PA-C Primary Care Provider Cheng Todd PA-C Unavailable Radha Lomeli MANAGER COMPLETIONS BURNISHER AND BUMPER Unavailable Jelena David OD Unavailable Pao [place] RN Unavailable Unavailable Esha Grimm PA-C Unavailable [phone] Valery Veronica PA-C Unavailable [phone] Rey Tay MD Unavailable Rocky Zepeda DO Unavailable Philip Dumont MD Unavailable Meredith Carrera PA-C Unavailable Neil Kent MD Unavailable Juan Pablo Emmanuel MD Unavailable Audrey Waite PA-C Unavailable JeremíasValery damon PA-C Unavailable Reason for Visit * Reason Onset Date Comments MyChart Communication 10/27/2022 Encounter Details Date Type Department Care Team (Late st Contact Info) Description 10/27/2022 MyC Medical Advice [facility] [address] [facility] [place] [address] Brea Quinn, MANAGER COMPLETIONS BURNISHER AND BUMPER 64[address] [facility] [place] [phone] Kim Communication (/) Social History Tobacco Use Types [...] How often do you attend muslim or anabaptist serv ices? Never 09/22/2021 Do [...] Answer Date Recorded PHQ-2 Score 1 10/11/2022 [facility] of Occupat ional [facility] - [...] in a penitentiary (including now)? No 09/22/2021 Novice Depression Scale Answer Date Recorded Novice Depression Score 5 01/14/2021 Last EPDS Self Harm Result Not on file 01/14 Education Answer Date Recorded What is the highest level of school you have completed or the highest degree you have received? 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 ASSISTANT Gender Identity Female 03/02/2021 5:45 PM [...] and advise. Letha Driver RN [facility] Art [phone] documented in this encounter Plan of Treatment Upcoming Encounters Date Type Department Care Team (Late st Contact Info) Description 05/31/2024 8:[address] ASSISTANT Therapy Visit [facility] Rehabilitation Services [address] [place] [phone] Ingris Thompson, PT [facility] [address] [place] [address] 106 [place] [address] 05/31/2024 3:[address] ASSISTANT Office Visit [facility] Specialty Clinic [address] [phone] Audrey Díaz, Herminia Koo MD [address] [place] [address] 06/04/2024 3:[address] ASSISTANT Office Visit [address] [place] [phone] Jelena David, SONJA [address] [place] [address] [place] [address] 06/11/2024 10:[address] ASSISTANT Appointment [facility] Respiratory Therapy [address] [place] [phone] Spec, Nurse Only Med 06/18/2024 2:[address] ASSISTANT Therapy Visit [facility] Rehabilitation Services [place] [address] [place] [address] [address] [place] [phone] Ingris Thompson, PT [facility] [address] [facility] 106 [place], [place] 001245 06/21/2024 2:[address] ASSISTANT Office Visit [facility] Neurology [facility]ics - [place] [address] [facility] [address] [place] [phone] [place] [address] [place], [place] 852697 Johnny Penn MD 6506 [place], [place] 729735 06/25/2024 8:[address] ASSISTANT Office Visit [address] [phone] Valery Veronica PA-C [address] [place] [address] 916005 11/28/2024 7:45 AM CDT Virtual Visit [facility] Gastroenterology Clinic [address] 4th [place] [phone] Meredith Carrera PA-C [address] [place] [address] [phone] documented as of this encounter Visit Diagnoses [...] documented as of this encounter Care Teams Guitar Repairer Relationship Specialty Start Date End Date Marija Edgar APRN BURNISHER AND BUMPER PCP - General Nurse Practitioner 04/30/20 04/14/23 Esha Grimm PA-C [address] [place] [address] PCP - General Family Medicine 05/04/23 Lita Oseguera Personal Advocate & Liaison (PAL) 02/28/20 03/27/23 Marija Edgar APRN BURNISHER AND BUMPER Assigned PCP 06/08/20 04/29/23 Keisha Dotson MD [address] [place], [place] 668445 Assigned Neuroscience Provider 06/04/20 04/01/23 Diana Desir [facility] [address] [place], [place] 192626 Pharmacist Pharmacist 04/17/21 Rain Galaviz PA-C [address] [place] [address] DR ARTEAGA [place] [address] Physician Tyre Fitter Dermatology 04/28/21 aTvia Wyatt MD [address] [place] [address] [place] [address] Dermatology 07/14/21 Erica Farrell APRN BURNISHER AND BUMPER [address] [place] [address] Nurse Practitioner Cardiovascular Disease 09/09/21 Rich Barrett MD [address] [place] [address] 760025 Physician Ophthalmology 01/21/22 Neil Kent MD [address] [place] [address] 147995 Dermatology 02/24/22 Diana Desir, [facility] [address] [place], [place] 754156 Assigned [place] Pharmacist 04/07/22 Livan Sharif MD [address], [facility]00 [place] 378135 Cardiovascular Disease 05/14/22 Catherine Cm MD [address] [facility]00 [place] 606845 Cardiovascular Disease 07/21/22 Valery Veronica, PA-C [address] [place] [address] 310395 Physician Tyre Fitter Dermatology 07/21/22 Catherine Cm MD [address] [facility] [place] [address] Assigned Heart and Vascular Provider 07/24/22 11/05/22 Brea Quinn APRN BURNISHER AND BUMPER 500 [place], [place] 549525 Nurse Practitioner Dermatology 09/21/22 Brea Quinn APRN BURNISHER AND BUMPER [address] [place] [address] 976512 Assigned Surgical Provider 10/09/22 05/01/24 [place] [address] [address] Assigned Musculoskeletal Provider 10/09/22 05/01/24 Livan Sharif MD [address] [place] 4769400 [place] [address] Assigned Heart and Vascular Provider 11/06/22 11/12/22 Catherine Cm MD [address] [facility]00 [place] [address] Assigned Heart and Vascular Provider 11/13/22 05/27/23 Sydnie Martinez RN Personal Advocate & Liaison (PAL) Family Medicine 03/28/23 07/31/23 Alfonso Renteria MD [address] 813736 Assigned Neuroscience Provider 04/02/23 Cheng Todd PA-C [address] [place] [address] [phone] Assigned PCP 04/30/23 07/15/23 Radha Lomeli APRN BURNISHER AND BUMPER [address] [facility] [address] [place], [place] 389085 Assigned Heart and Vascular Provider 05/28/23 [place] [address] [facility] [address] [place] [phone] Ophthalmology 06/15/23 Pao [place], VJ Personal Advocate & Liaison (PAL) Nurse 08/01/23 11/07/23 Esha Grimm PA-C [address] [place] [address]485[address] Assigned PCP 07/16/23 Valery Veronica PA-C [address] [place] [address] 699715 Physician Tyre Fitter Dermatology 09/19/23 Rey Tay MD [address] [place] [address] [phone] Gastroenterology 09/20/23 Rocky Zepeda DO [address] [place] [address] [phone] Physician Gastroenterology 09/20/23 Philip Dumont MD [address] [place] [address] 851685 Physician Ophthalmology 09/22/23 Meredith Carrera PA-C [address] [place] [address] Assigned Gastroenterology Provider 11/01/23 Neil Kent MD [address] [address] Dermatology 11/02/23 [place] [address] [phone] Neurological Surgery 12/26/23 Audrey Waite PA-C [address] [place] [address] Physician Tyre Fitter Dermatology 02/28/24 Valery Veronica PA-C [address] [place] [address] Physician Tyre Fitter Dermatology 04/10/24 documented as of this encounter
--- OUTSIDE RECORDS SUMMARY | 2024-05-27 08:50 | XMS_ITS | Encounter Summary ---
Author Organization [place] Address [address] [place] [address] Care Team Providers Care Hydrogen Power Plant Engineer Name Role Phone Lita Oseguera Unavailable Unavailable Marija Edgar APRN CROSSCUTTER Primary Care Provider + Marija Edgar APRN CROSSCUTTER Unavailable [phone] Keisha Dotson MD Unavailable Diana Desir [facility] Unavailable Rain Galaviz PA-C Unavailable Tavia Wyatt MD Unavailable Unavailable Erica Farrell APRN CROSSCUTTER Unavailable Rich Barrett MD Unavailable Neil Kent MD Unavailable Roney Story DPM Unavailable [phone] Diana Desir [facility] Unavailable Jelena David OD Unavailable Livan Sharif MD Unavailable Livan Sharif MD Unavailable Catherine Cm MD Unavailable + Valery Veronica PA-C Unavailable Catherine Cm MD Unavailable + Johnny Murillo MD Unavailable [phone] Brea Quinn TOLL SERVICE OBSERVER CROSSCUTTER Unavailable [phone] Brea Quinn TOLL SERVICE OBSERVER CROSSCUTTER Unavailable [phone] Jose Francisco [place] MD Unavailable Livan Sharif MD Unavailable Catherine Cm MD Unavailable + Sydnie Martinez RN Unavailable Unavailable Alfonso Renteria MD Unavailable Esha Grimm PA-C Primary Care Provider Cheng Todd PA-C Unavailable Radha Lomeli TOLL SERVICE OBSERVER CROSSCUTTER Unavailable Jelena David Radha OD Unavailable [phone] Pao [place] RN Unavailable Unavailable Esha Grimm PA-C Unavailable [phone] Valery Veronica PA-C Unavailable [phone] Rey Tay MD Unavailable Rocky Zepeda DO [...] (Late st Contact Info) Description 06/14/2022 Telephone [facility] Heart [facility] [address] [facility] [address] [place] [address] Livan Sharif MD [address] [place] [address] Appointment (Stress test and monitor on the [...] How often do you attend shinto or sikhism serv ices? Never 09/22/2021 Do [...] points; Administer PHQ-9 if positive 1 05/13/2022 [facility] of Occupat ional [facility] - Occupational Stress [...] in a fdc (including now)? No 09/22/2021 [place] Depression Scale Answer Date Recorded [place] [...] PM CDT Legal Sex Female 4:13 AM RESTAURANT AREA DIRECTOR Gender Identity Female 03/02/2021 5:45 PM CDT Sexual Orientation Straight 02/28/2020 12 :51 AM CDT COVID-19 Exposure Response Date Recorded In the last 10 days, have yo u been in contact with someone who was confirmed or suspected to have Coronavirus/COVID-19? Yes 06/16/2022 12:32 PM RESTAURANT AREA DIRECTOR documented as of this encounter Miscellaneous Notes * Telephone Encounter - Amalia Matute MA - 06/14/2022 9:30 AM CST [facility] Call Center Phone Message May a [...] Not Applicable Thank you! Specialty Access Center AURANT AREA DIRECTOR documented in this encounter Plan of Treatment Upcoming Encounters Date Type Department Care Team (Late st Contact Info) Description 05/31/2024 8:40 AM RESTAURANT AREA DIRECTOR Therapy Visit [facility] Rehabilitation Services [address] [place] [address] Ingr[place] Thompson, PT [facility] [address] [place] [address] 05/31/2024 3:30 PM RESTAURANT AREA DIRECTOR Office Visit [facility] Specialty Clinic [address] [phone] Audrey Díaz PA-C Khan, Waseem, MD [address] [place], [place] [phone] 06/04/2024 3:30 PM RESTAURANT AREA DIRECTOR Office Visit [facility] [place] [address] [facility] [address] [place] [phone] Jelena David, [address] [facility] [place] [address] 06/11/2024 10:30 AM RESTAURANT AREA DIRECTOR Appointment [facility] Respiratory Therapy [address] [place] [phone] Spec, Nurse Only Med 06/18/2024 2:50 PM RESTAURANT AREA DIRECTOR Therapy Visit [facility] Rehabilitation Services [address] [place] [address] Ingris Thompson, PT [facility] 6 [facility] 106 [place], [place] [address]95 06/21/2024 2:00 PM RESTAURANT AREA DIRECTOR Office Visit [facility] Neurology Clinics - [place] [address] [place] [address], [address] [place] [address] [place] [address] [place] [address] Johnny Penn MD [address] [facility] [place] 775045 06/25/2024 8:30 AM RESTAURANT AREA DIRECTOR Office Visit [address] [phone] Valery VeronicaROVERTO [address] [place] [address] 11/28/2024 7:45 AM CDT Virtual Visit [facility] Gastroenterology Clinic [address] [place] [phone] Meredith Carrera PA-C [address] [place] [address] documented as of this encounter Visit Diagnoses Not on filedocumented in this encounter Additional Health Concerns Infection Onset Date Last Indicated Resolved Time COVID-19 06/09/2022 06/09/2022 06/30/2022 11:4 1 PM RESTAURANT AREA DIRECTOR Rule Out COVID-19 11/10/2022 11/10/2022 11/11/2022 12:17 PM CDT Rule Out COVID-19 03/07/2023 03/07/2023 03/07/2023 1:20 PM CDT Rule Out COVID-19 12/26/2023 12/26/2023 12/26/2023 9:50 AM CDT Rule Out COVID-19 04/09/2024 04/09/2024 04/10/2024 6:48 PM CDT Assessment Noted Time PHQ-9 Depression Total Score: 3 05/13/20 22 8:49 PM CDT documented as of this encounter Care Teams Hydrogen Power Plant Engineer Relationship Specialty Start Date End Date Marija Edgar APRN CROSSCUTTER PCP - General Nurse Practitioner 04/30/20 04/14/23 Esha Grimm PA-C [address] [place] [phone] PCP - General Family Medicine 05/04/23 Lita Oseguera Personal Advocate & Liaison (PAL) 02/28/20 03/27/23 Marija Edgar APRN CROSSCUTTER Assigned PCP 06/08/20 04/29/23 Keisha Dotson MD [address]09 [place] [address] Assigned Neuroscience Provider 06/04/20 04/01/23 [facility] [address] [place] [address] Pharmacist Pharmacist 04/17/21 Rain Galaviz PA-C [address] [place] [address] [address] [place] [address] Physician Flume Worker Dermatology 04/28/21 Tavia Wyatt MD [address] [place] [address] [address] [place] [address] Dermatology 07/14/21 Erica Farrell APRN CROSSCUTTER [address] [place] [address] Nurse Practitioner Cardiovascular Disease 09/09/21 Rich Barrett MD [address] 915285 Physician Ophthalmology 01/21/22 Neil Kent MD 500 [place], [place] 987135 Dermatology 02/24/22 Roney Story DPM [address] [facility] 300 [place] [address] Assigned Musculoskeletal Provider 03/20/22 08/13/22 Diana Desir, [facility] [address] [place], [place] 328326 Assigned MTM Pharmacist 04/07/22 Frankie Jelenamao Garcia OD [address] [facility] [place] [address] Assigned Surgical Provider 05/08/22 10/08/22 Livan Sharif MD [address], [facility] [address] [place] 6[address] Cardiovascular Disease 05/14/22 Livan Sharif MD [address], [facility] [address] [place] 933555 Assigned Heart and Vascular Provider 06/12/22 07/23/22 Catherine Cm MD [address] [facility] [place] 394165 Cardiovascular Disease 07/21/22 Valery Veronica, PA-C [address] [place] [address] 521505 Physician Flume Worker Dermatology 07/21/22 Catherine Cm MD [address] [place] 105095 Assigned Heart and Vascular Provider 07/24/22 11/05/22 Johnny Murillo MD [facility] [address] [place] [address] 287884 Assigned Musculoskeletal Provider 08/14/22 10/08/22 Brea Quinn APRN CROSSCUTTER 500 [place] [address] Nurse Practitioner Dermatology 09/21/22 Brea Quinn APRN CROSSCUTTER 6401 [place] [address] Assigned Surgical Provider 10/09/22 05/01/24 [place] [address] [address] Assigned Musculoskeletal Provider 10/09/22 05/01/24 Livan Sharif MD [address], [facility] [address] [place] [address] Assigned Heart and Vascular Provider 11/06/22 11/12/22 Catherine Cm MD [address] [facility] [address] [place] [address] Assigned Heart and Vascular Provider 11/13/22 05/27/23 Sydnie Martinez RN Personal Advocate & Liaison (PAL) Family Medicine 03/28/23 07/31/23 Alfonso Renteria MD 57[address] [facility] 200 [place], [place] 113596 Assigned Neuroscience Provider 04/02/23 Cheng Todd PA-C [address] [place] [address] [phone] Assigned PCP 04/30/23 07/15/23 Radha Lomeli APRN CROSSCUTTER [address] [facility] [address] [place] [address] Assigned Heart and Vascular Provider 05/28/23 Jelena David OD [address] [facility] [place] [address] MD Ophthalmology 06/15/23 Pao [place], VJ Personal Advocate & Liaison (PAL) Nurse 08/01/23 11/07/23 Esha Grimm PA-C [address] [place] [phone] Assigned PCP 07/16/23 Valery Veronica PA-C [address] [place] [address] Physician Flume Worker Dermatology 09/19/23 Rey Tay MD [address] [place] [address] 933505 MD Gastroenterology 09/20/23 Rocky Zepeda DO [address] [place] [address] 978215 Physician Gastroenterology 09/20/23 Philip Dumont MD [address] [place] [address] 857025 Physician Ophthalmology 09/22/23 Meredith Carrera PA-C [address] [place] [address] 901985 Assigned Gastroenterology Provider 11/01/23 Neil Kent MD [address] [place] [address] Dermatology 11/02/23 [place] [address] 218517 Neurological Surgery 12/26/23 Audrey Waite PA-C 500 [place] [address] Physician Flume Worker Dermatology 02/28/24 Valery Veronica PA-C [address] [place] [address] Physician Flume Worker Dermatology 04/10/24 documented as of this encounter
--- OUTSIDE RECORDS SUMMARY | 2024-05-27 08:50 | XMS_ITS | Encounter Summary ---
Author Organization [facility] Address [address] [place] [address] Care Team Providers Care Business Analytics Specialist Name Role Phone Lita Oseguera Unavailable Unavailable Marija Edgar APRN IRRIGATOR VALVE PIPE Primary Care Provider + Marija Edgar APRN IRRIGATOR VALVE PIPE Unavailable [phone] Keisha Dotson MD Unavailable Diana Desir [facility] Unavailable [phone] Rain Galaviz PA-C Unavailable [phone] Tavia Wyatt MD Unavailable Unavailable Erica Farrell APRN IRRIGATOR VALVE PIPE Unavailable Rich Barrett MD Unavailable [phone] Neil Kent MD Unavailable Diana Desir [facility] Unavailable Livan Sharif MD Unavailable Catherine Cm MD Unavailable + Valery Veronica PA-C Unavailable [phone] Catherine Cm MD Unavailable + Brea Quinn APRN IRRIGATOR VALVE PIPE Unavailable [place], Brea P SPECIAL EDUCATION TEACHERS IRRIGATOR VALVE PIPE Unavailable Jose Francisco Johnson MD Unavailable Livan Sharif MD Unavailable Catherine Cm MD Unavailable + Sydnie Martinez RN Unavailable Unavailable Alfonso Renteria MD Unavailable [phone] Esha Grimm PA-C Primary Care Provider Cheng Todd PA-C Unavailable Armani Radha Sia [employer] EDUCATION TEACHERS IRRIGATOR VALVE PIPE Unavailable Jelena David OD Unavailable Pao Joseph RN Unavailable Unavailable Esha Grimm PA-C Unavailable [phone] Valery Veronica PA-C Unavailable Rey Tay MD Unavailable Rocky Zepeda DO Unavailable Philip Dumont MD Unavailable Meredith Carrera PA-C Unavailable [phone] Neil Kent MD Unavailable Juan Pablo Emmanuel MD Unavailable Audrey Waite PA-C Unavailable JeremíasValery damon PA-C Unavailable [phone] Reason for Visit * Reason Onset Date Comments Pt. Information/instruction 10/11/2022 Appointment 10/11/2022 Encounter Details Date Type Department Care Team (Late st Contact Info) Description 10/11/2022 [facility] [place] [address] [place] [address] [place] [address] [place] [address] Pt. Information/instructio n; Appointment Social [...] How often do you attend yazidism or restoration serv ices? Never 09/22/2021 Do [...] Score 1 10/11/2022 [facility] [...] in a prison (including now)? No 09/22/2021 [place] Depression Scale [...] PM CDT Legal Sex Female 4:13 AM AUTOMATIC COIN MACHINE MECHANIC Gender Identity Female 03/02/2021 5:45 PM [...] encounter. Please see new request below from [facility] and advise. Mandi Byrd RN * Telephone Encounter - Treasure Lee - 10/15/2022 2:14 PM CDT [facility] Phone Message May a detailed message be left on voicemail: yes Reason for Call: Other: Patient's [facility], Meredith is wondering if she can also be conference in on patient's upcoming appointment (10/27). Action Taken: Other: [facility] Sports Medicine Travel Screening: Not Applicable * Telephone Encounter - Mary Easley - 10/12/2022 12:47 PM CDT Called [facility] to discuss what they are needing from 's office. No answer. Left message to call back Kristina Easley ATC * Telephone Encounter - Treasure Lee - 10/11/2022 10:05 AM CDT [facility] Phone Message May a detailed message be left on voicemail: yes Reason for Call: Other: Please contact patient's cartridge assembling machine adjuster, Rosal[facility] so she can authorize patient's MRI. [facility]'s contact info: phone# [phone] fax# [phone] Action Taken: Other: [facility] Travel Screening: Not Applicable documented in this encounter Plan of Treatment Upcoming Encounters Date Type Department Care Team (Late st Contact Info) Description 05/31/2024 8:40 AM AUTOMATIC COIN MACHINE MECHANIC Therapy Visit [address] [place] [phone] Ingris Thompson, PT [facility] [address] [place] [address] 785995 05/31/2024 3:30 PM AUTOMATIC COIN MACHINE MECHANIC Office Visit [address] [address] Audrey Díaz, Herminia Koo MD [address] [place] [address] 06/04/2024 3:30 PM AUTOMATIC COIN MACHINE MECHANIC Office Visit [address] [place] [phone] Jelena David, [address] [place] [address] 06/11/2024 10:30 AM AUTOMATIC COIN MACHINE MECHANIC Appointment [facility] [address] [place] [phone] Spec, Nurse Only Med 06/18/2024 2:50 PM AUTOMATIC COIN MACHINE MECHANIC Therapy Visit [address] [phone] Ingris Thompson, PT [facility] [address] [facility] [address] [place], [place] [address] 06/21/2024 2:00 PM AUTOMATIC COIN MACHINE MECHANIC Office Visit [facility] [place] [address] [facility], [address] [place] [phone] [place] [address] [place], [place] 7967[address] Johnny Penn MD [address] [place] [address] 06/25/2024 8:30 AM AUTOMATIC COIN MACHINE MECHANIC Office Visit [address] [phone] Valery Veronica PA-C [address] [place] [address] 11/28/2024 7:45 AM CDT Virtual Visit [facility] [address] 4th [place] [phone] Meredith Carrera PA-C [address] [place] [address] 322685 documented as of this encounter Visit Diagnoses [...] as of this encounter Care Teams Business Analytics Specialist Relationship Specialty Start Date End Date Marija Edgar APRN IRRIGATOR VALVE PIPE PCP - General Nurse Practitioner 04/30/20 04/14/23 Esha Grimm PA-C [address] [place] [address] PCP - General Family Medicine 05/04/23 Lita Oseguera Personal Advocate & Liaison (PAL) 02/28/20 03/27/23 Marija Edgar APRN IRRIGATOR VALVE PIPE Assigned PCP 06/08/20 04/29/23 Keisha Dotson MD [address] [place], [place] 177945 Assigned Neuroscience Provider 06/04/20 04/01/23 Diana Desir, [facility] [address] [place] [address] Pharmacist Pharmacist 04/17/21 Rain Galaviz PA-C [address] [place] [address] [place] [address] Physician Section Cutter Dermatology 04/28/21 Tavia Wyatt MD [address] [place] [address] [place] [address] Dermatology 07/14/21 Erica Farrell APRN IRRIGATOR VALVE PIPE [address] [place] [address] Nurse Practitioner Cardiovascular Disease 09/09/21 Rich Barrett MD [address] [facility], [address] [address] Physician Ophthalmology 01/21/22 Neil [place] MD 500 [place], [place] 828435 Dermatology 02/24/22 Diana Desir, [facility] [address] [place], [place] 529546 Assigned MTM Pharmacist 04/07/22 Livan Sharif MD [address] [place] 65[address] Cardiovascular Disease 05/14/22 Catherine Cm MD [address] [place] 8467[address] Cardiovascular Disease 07/21/22 Valery Veronica, PA-C 909 [place] [address] Physician Section Cutter Dermatology 07/21/22 Catherine Cm MD [address] [place] [address] Assigned Heart and Vascular Provider 07/24/22 11/05/22 Brea Quinn APRN IRRIGATOR VALVE PIPE 500 [facility] [address] Nurse Practitioner Dermatology 09/21/22 Brea Quinn APRN IRRIGATOR VALVE PIPE [address] [place] [address] Assigned Surgical Provider 10/09/22 05/01/24 [place] [address] [place] [address] Assigned Musculoskeletal Provider 10/09/22 05/01/24 Livan Sharif MD [address] [facility] [address] [place] [address] Assigned Heart and Vascular Provider 11/06/22 11/12/22 Catherine Cm MD [address] [facility] [place] [address] Assigned Heart and Vascular Provider 11/13/22 05/27/23 Sydnie Martinez RN Personal Advocate & Liaison (PAL) Family Medicine 03/28/23 07/31/23 Alfonso Renteria MD [address] [facility] 200 [place] [address] Assigned Neuroscience Provider 04/02/23 Cheng Todd PA-C [address] [place] [address] Assigned PCP 04/30/23 07/15/23 Radha Lomeli APRN IRRIGATOR VALVE PIPE [address] [place] [address] Assigned Heart and Vascular Provider 05/28/23 Jelena David OD [address] [place] [address] MD Ophthalmology 06/15/23 Pao Joseph, VJ Personal Advocate & Liaison (PAL) Nurse 08/01/23 11/07/23 Esha Grimm PA-C [address] [place] [phone] Assigned PCP 07/16/23 Valery Veronica PA-C [address] [place] [address] 053815 Physician Section Cutter Dermatology 09/19/23 Rey Tay MD [address] [place] [address] 344075 Gastroenterology 09/20/23 Rocky Zepeda DO [address] [place] [address] 742485 Physician Gastroenterology 09/20/23 Philip Dumont MD [address] [place] [address] Physician Ophthalmology 09/22/23 Meredith Carrera PA-C [address] [place] [address] Assigned Gastroenterology Provider 11/01/23 Neil Kent MD [address] [address] Dermatology 11/02/23 [place] [address] [address] Neurological Surgery 12/26/23 Audrey Waite PA-C 500 [place] [address] Physician Section Cutter Dermatology 02/28/24 Valery Veronica PA-C 482898 [address] [address] Physician Section Cutter Dermatology 04/10/24 documented as of this encounter
--- OUTSIDE RECORDS SUMMARY | 2024-05-27 08:51 | XMS_ITS | Encounter Summary ---
Author Organization [facility] Address [address] [place] [address] Care Team Providers Care Furnace Worker Name Role Phone Lita Oseguera Unavailable Unavailable Marija Edgar APRN SAS ANALYST Primary Care Provider + Marija Edgar APRN SAS ANALYST Unavailable [phone] Keisha Dotson MD Unavailable [phone] Galo Burrell MD Unavailable Unavailable Diana Desir [facility] Unavailable [phone] Rain Galaviz PA-C Unavailable [phone] Summer Lara MD Unavailable [phone] Tavia Wyatt MD Unavailable Unavailable Johnny Murillo MD Unavailable Erica Farrell APRN SAS ANALYST Unavailable Tavia Wyatt MD Unavailable Unavailable Diana Desir [facility] Unavailable [phone] Rich Barrett MD Unavailable [phone] Neil Kent MD Unavailable Roney StoryM Unavailable [phone] Erica Farrell APRN SAS ANALYST Unavailable Diana Desir [facility] Unavailable FrankieJelenae OD Unavailable Galo Burrell MD Unavailable Unavailable Livan Sharif MD Unavailable Livan Sharif MD Unavailable IsCatherine hobbs MD Unavailable + Valery Veronica PA-C Unavailable [phone] IsCatherine hobbs MD Unavailable + Johnny Murillo MD Unavailable [phone] Brea Quinn CLASSIFIER SAS ANALYST Unavailable [phone] Brea Quinn CLASSIFIER SAS ANALYST Unavailable [phone] Jose Francisco Johnson MD Unavailable Livan Sharif MD Unavailable + IsraynaCatherine boothe MD Unavailable + Sydnie Martinez RN Unavailable Unavailable Alfonso Renteria MD Unavailable Esha Grimm PA-C Primary Care Provider Cheng Todd PA-C Unavailable Radha Lomeli CLASSIFIER SAS ANALYST Unavailable [phone] Jelena David OD Unavailable Pao Joseph RN Unavailable Unavailable Esha Grimm PA-C Unavailable [phone] Valery Veronica PA-C Unavailable [phone] Rey Tay MD Unavailable Rocky Zepeda DO Unavailable Philip Dumont MD Unavailable [phone] Meredith Carrera PA-C Unavailable [phone] Neil Kent MD Unavailable Juan Pablo Emmanuel MD Unavailable Audrey Waite PA-C Unavailable Valery Veronica PA-C Unavailable [phone] Encounter Details Date Type Department Care Team (Late st Contact Info) Description 12/03/2021 [facility] [address], [address] [place] [address] Keisha Dotson MD [address] [place] [address] Social History Tobacco Use Types [...] How often do you attend episcopal or hinduism serv ices? Never 09/22/2021 Do [...] Answer Date Recorded PHQ-2 Score 2 09/22/2021 [facility] - [facility] Stress [...] health care facility (including now)? No 09/22/2021 [place] Depression Scale Answer Date Recorded [place] [...] PM CDT Legal Sex Female 4:13 AM COMPLIANCE DIRECTOR Gender Identity Female 03/02/2021 5:45 PM [...] st Contact Info) Description 05/31/2024 8:40 AM COMPLIANCE DIRECTOR Therapy Visit [facility] [address] [place] [address] Ingris Thompson, PT [facility] [address] [place] [address] 106 [place] [address] 05/31/2024 3:30 PM COMPLIANCE DIRECTOR Office Visit [facility] [address] [phone] Audrey Díaz PA-C Khan, Waseem, [place] [address] 06/04/2024 3:30 PM COMPLIANCE DIRECTOR Office Visit [address] [place] [address] Frankie Jelena Garcia, OD [address] [facility] [place] [address] 06/11/2024 10:30 AM COMPLIANCE DIRECTOR Appointment [facility] Respiratory Therapy [address] [place] [phone] Spec, Nurse Only Med 06/18/2024 2:50 PM COMPLIANCE DIRECTOR Therapy Visit [facility] [place] [address] [place] [address] [address] [place] [address] Ingris Thompson, PT [facility] [address] [facility] [address] [place], [place] [address] 06/21/2024 2:00 PM COMPLIANCE DIRECTOR Office Visit [facility] [place] [address] [place] [address], [address] [place] [phone] [place] [address] [place], [place] [address] Johnny Penn MD [address] [place] [address] 06/25/2024 8:30 AM COMPLIANCE DIRECTOR Office Visit [address] [address] Valery Veronica PA-C [address] [place] [address] 11/28/2024 7:45 AM CDT Virtual Visit [facility] [address] 4th [place] [phone] Meredith Carrera PA-C [address] [place] [address] [place] [address] documented as of this encounter Visit Diagnoses Not on filedocumented in this encounter Additional Health Concerns Infection Onset Date Last Indicated Resolved Time Rule Out COVID-19 12/18/2021 12/18/2021 12/19/2021 11:34 AM CDT Rule Out COVID-19 02/24/2022 02/24/2022 02/25/2022 1:08 PM CDT Rule Out COVID-19 04/26/2022 04/26/2022 04/26/2022 6:47 AM CDT Rule Out COVID-19 05/17/2022 05/17/2022 05/17/2022 10:20 PM COMPLIANCE DIRECTOR Rule Out COVID-19 06/09/2022 06/09/2022 06/09/2022 9:35 AM COMPLIANCE DIRECTOR COVID-19 06/09/2022 06/09/2022 06/30/2022 11:4 1 PM COMPLIANCE DIRECTOR Rule Out COVID-19 11/10/2022 11/10/2022 11/11/2022 12:17 PM CDT Rule Out COVID-19 03/07/2023 03/07/2023 03/07/2023 1:20 PM CDT Rule Out COVID-19 12/26/2023 12/26/2023 12/26/2023 9:50 AM CDT Rule Out COVID-19 04/09/2024 04/09/2024 04/10/2024 6:48 PM CDT Assessment Noted Time PHQ-9 Depression Total Score: 2 04/02/20 21 10:19 AM CDT documented as of this encounter Care Teams Furnace Worker Relationship Specialty Start Date End Date Marija Edgar APRN CNP PCP - General Nurse Practitioner 04/30/20 04/14/23 Esha Grimm PA-C [address] [place] [phone] PCP - General Family Medicine 05/04/23 Lita Oseguera Personal Advocate & Liaison (PAL) 02/28/20 03/27/23 Marija Edgar APRN SAS ANALYST Assigned PCP 06/08/20 04/29/23 Keisha Dotson MD 9[address] [place] [address] Assigned Neuroscience Provider 06/04/20 04/01/23 Galo Burrell MD Assigned Heart and Vascular Provider 10/05/20 04/02/22 [facility] 3033 [place] [address] Pharmacist Pharmacist 04/17/21 Rain Galaviz PA-C [address] [place] [address] [place] [address] Physician Stamp Press Operator Dermatology 04/28/21 Summer Lara MD [address] [place], [place] [address] [place] [address] Assigned OBGYN Provider 05/31/21 2 Tavia Wyatt MD [address] [place] [address] Dermatology 07/14/21 Johnny Murillo MD [address] [place] [address] Assigned Musculoskeletal Provider 08/30/21 03/17/22 Erica Farrell APRN SAS ANALYST [address] [facility] [address] [place] [address] Nurse Practitioner Cardiovascular Disease 09/09/21 Tavia Wyatt MD Assigned Surgical Provider 11/29/21 05/07/22 Diana Desir, [facility] [address] [place] [address] Assigned MTM Pharmacist 01/02/22 Rich Barrett MD [address] [address] Physician Ophthalmology 01/21/22 Neil Kent MD 500 [place], [place] 942365 Dermatology 02/24/22 Roney Story DPM [address] [facility] [address] [place], [place] 6[address] Assigned Musculoskeletal Provider 03/20/22 08/13/22 Erica Farrell APRN SAS ANALYST 1700 [place] [address] Assigned Heart and Vascular Provider 04/03/22 04/16/22 Diana Desir, [facility] [address] [place] [address] Assigned MTM Pharmacist 04/07/22 Jelena David OD [address] [facility] [place] [address] Assigned Surgical Provider 05/08/22 10/08/22 Galo Burrell MD Assigned Heart and Vascular Provider 04/17/22 06/11/22 Livan Sharif MD [address] [place] [address] Cardiovascular Disease 05/14/22 Livan Sharif MD [address] [place] [address] Assigned Heart and Vascular Provider 06/12/22 07/23/22 Catherine Cm MD [address] [place] [address] Cardiovascular Disease 07/21/22 Valery Veronica, PA-C [address] [place] [address] 760065 Physician Stamp Press Operator Dermatology 07/21/22 Catherine Cm MD [address] [place] [address] Assigned Heart and Vascular Provider 07/24/22 11/05/22 Johnny Murillo MD [facility] [address] 158714 Assigned Musculoskeletal Provider 08/14/22 10/08/22 Brea Quinn APRN SAS ANALYST [address] [place] [address] 189825 Nurse Practitioner Dermatology 09/21/22 Brea Quinn APRN SAS ANALYST [address] [place] [address] Assigned Surgical Provider 10/09/22 05/01/24 [place] [address] [place] [address], [place] [address] Assigned Musculoskeletal Provider 10/09/22 05/01/24 Livan Sharif MD [address] [facility] [address] [place] 611665 Assigned Heart and Vascular Provider 11/06/22 11/12/22 Catherine Cm MD [address] [place] [address] Assigned Heart and Vascular Provider 11/13/22 05/27/23 Sydnie Martinez, RN Personal Advocate & Liaison (PAL) Family Medicine 03/28/23 07/31/23 Alfonso Renteria MD [address]75 [facility] 200 [place] [address] Assigned Neuroscience Provider 04/02/23 Cheng Todd PA-C [address] [place] [address] Assigned PCP 04/30/23 07/15/23 Radha Lomeli APRN SAS ANALYST [address] [place] [address] Assigned Heart and Vascular Provider 05/28/23 Jelena David OD [address] [facility] [place] [place] [address] MD Ophthalmology 06/15/23 Pao Joseph, RN Personal Advocate & Liaison (PAL) Nurse 08/01/23 11/07/23 Esha Grimm PA-C [address] [place] [phone] Assigned PCP 07/16/23 Valery Veronica PA-C [address] [place] [address] 784605 Physician Stamp Press Operator Dermatology 09/19/23 Rey Tay MD [address] [place] [address] 296775 MD Gastroenterology 09/20/23 Rocky Zepeda DO [address] [place] [address] 059775 Physician Gastroenterology 09/20/23 Philip Dumont MD [address] [place] [address] 754905 Physician Ophthalmology 09/22/23 Meredith Carrera PA-C [address] [place] [address] Assigned Gastroenterology Provider 11/01/23 Neil Kent MD [address] [address] Dermatology 11/02/23 [place] [address] [place] [address] Neurological Surgery 12/26/23 Audrey Waite PA-C 500 [place] [address] Physician Stamp Press Operator Dermatology 02/28/24 Valery Veronica PA-C [address] [place] [address] Physician Stamp Press Operator Dermatology 04/10/24 documented as of this encounter
--- OUTSIDE RECORDS SUMMARY | 2024-05-27 08:51 | XMS_ITS | Encounter Summary ---
Author Organization [place] Address [address] [place] [address] Care Team Providers Care Carton Forming Machine Helper Name Role Phone Lita Oseguera Unavailable Unavailable Marija Edgar APRN EMT I/85 Primary Care Provider + Marija Edgar APRN EMT I/85 Unavailable [phone] Keisha Dotson MD Unavailable [phone] Galo Burrell MD Unavailable Unavailable Diana Desir [facility] Unavailable [phone] Rain Galaviz PA-C Unavailable Summer Lara MD Unavailable [phone] Tavia Wyatt MD Unavailable Unavailable Johnny Murillo MD Unavailable Erica Farrell APRN EMT I/85 Unavailable Tavia Wyatt MD Unavailable Unavailable Diana Desir [facility] Unavailable [phone] Rich Barrett MD Unavailable [phone] Neil Kent MD Unavailable Roney StoryM Unavailable [phone] Erica Farrell APRN EMT I/85 Unavailable Diana Desir [facility] Unavailable FrankieJelenae OD Unavailable Galo Burrell MD Unavailable Unavailable Livan Sharif MD Unavailable Livan Sharif MD Unavailable IsCatherine hobbs MD Unavailable + Valery Veronica PA-C Unavailable [phone] IsCatherine hobbs MD Unavailable + Johnny Murillo MD Unavailable [phone] Brea Quinn [facility] DIRECT[facility] EMT I/85 Unavailable [phone] Brea Quinn CENTER MEDICAL AND LAB DIRECTOR EMT I/85 Unavailable [phone] Jose Francisco Johnson MD Unavailable Livan Sharif MD Unavailable + IsraynaCatherine boothe MD Unavailable + Sydnie Martinez RN Unavailable Unavailable Alfonso Renteria MD Unavailable Esha Grimm PA-C Primary Care Provider Cheng Todd PA-C Unavailable Radha Lomeli CENTER MEDICAL AND LAB DIRECTOR EMT I/85 Unavailable [phone] Jelena David OD Unavailable Pao Joseph RN Unavailable Unavailable Esha Grimm PA-C Unavailable [phone] Valery Veronica PA-C Unavailable [phone] Rey Tay MD Unavailable Rocky Zepeda DO Unavailable Philip Dumont MD Unavailable [phone] Meredith Carrera PA-C Unavailable [phone] Neil Kent MD Unavailable Juan Pablo Emmanuel MD Unavailable Audrey Waite PA-C Unavailable [phone] Valery Veronica PA-C Unavailable [phone] Encounter Details Date Type Department Care Team (Late st Contact Info) Description 12/03/2021 MyC Medical Advice [address] [address] Debbie Hdez MA Social History [...] How often do you attend zoroastrianism or lutheran serv ices? Never 09/22/2021 Do you belong [...] Answer Date Recorded PHQ-2 Score 2 09/22/2021 [facility] [...] health care facility (including now)? No 09/22/2021 [place] Depression Scale Answer Date Recorded [place] Depression Score 5 01/14/2021 Last EPDS Self Harm Result Not on file 01/14 Education Answer Date Recorded What is the highest level of school you have completed or the highest degree you have received? 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 SEAT INSTALLER Gender Identity Female 03/02/2021 5:45 PM CDT [...] st Contact Info) Description 05/31/2024 8:40 AM SEAT INSTALLER Therapy Visit [facility] [address] [place] [phone] Ingris Thompson, PT [facility] [address] [place] [address] 05/31/2024 3:30 PM SEAT INSTALLER Office Visit [facility] [address] [phone] Audrey Díaz, Herminia Koo MD [address] [place] [address] [phone] 06/04/2024 3:30 PM SEAT INSTALLER [facility] [place] [phone] Jelena David, [address] [place] [address] [place] [address] 06/11/2024 10:30 AM SEAT INSTALLER Appointment [facility] Respiratory Therapy [address] [place] [phone] Spec, Nurse Only Med 06/18/2024 2:50 PM SEAT INSTALLER Therapy Visit [facility] [address] [place] [phone] Ingris Thompson, PT [facility] [address] [facility] [address] [place], [place] 16119[address] 06/21/2024 2:00 PM SEAT INSTALLER Office Visit [facility] [place] [address] [facility] [address] [place] [phone] [place] [address] RAZO [address] [place] [address] [phone] Johnny Penn MD 6574 [place], [place] 710555 06/25/2024 8:30 AM SEAT INSTALLER Office Visit [address] [phone] Valery Veronica PA-C [address] [place] [address] 697115 11/28/2024 7:45 AM CDT Virtual Visit [facility] [address]th [place] [phone] Meredith Carrera PA-C [address] [place] [address] 590935 documented as of this encounter Visit Diagnoses Not on filedocumented in this encounter Additional Health Concerns Infection Onset Date Last Indicated Resolved Time Rule Out COVID-19 12/18/2021 12/18/2021 12/19/2021 11:34 AM CDT Rule Out COVID-19 02/24/2022 02/24/2022 02/25/2022 1:08 PM CDT Rule Out COVID-19 04/26/2022 04/26/2022 04/26/2022 6:47 AM CDT Rule Out COVID-19 05/17/2022 05/17/2022 05/17/2022 10:20 PM SEAT INSTALLER Rule Out COVID-19 06/09/2022 06/09/2022 06/09/2022 9:35 AM SEAT INSTALLER COVID-19 06/09/2022 06/09/2022 06/30/2022 11:4 1 PM SEAT INSTALLER Rule Out COVID-19 11/10/2022 11/10/2022 11/11/2022 12:17 PM CDT Rule Out COVID-19 03/07/2023 03/07/2023 03/07/2023 1:20 PM CDT Rule Out COVID-19 12/26/2023 12/26/2023 12/26/2023 9:50 AM CDT Rule Out COVID-19 04/09/2024 04/09/2024 04/10/2024 6:48 PM CDT Assessment Noted Time PHQ-9 Depression Total Score: 2 04/02/20 21 10:19 AM CDT documented as of this encounter Care Teams Carton Forming Machine Helper Relationship Specialty Start Date End Date Marija Edgar APRN EMT I/85 PCP - General Nurse Practitioner 04/30/20 04/14/23 Esha Grimm PA-C [address] [place] [phone] PCP - General Family Medicine 05/04/23 Lita Oseguera Personal Advocate & Liaison (PAL) 02/28/20 03/27/23 Marija Edgar APRN EMT I/85 Assigned PCP 06/08/20 04/29/23 Keisha Dotson MD 909 [place] [address] Assigned Neuroscience Provider 06/04/20 04/01/23 Galo Burrell MD Assigned Heart and Vascular Provider 10/05/20 04/02/22 [facility] [address] [place] [address] Pharmacist Pharmacist 04/17/21 Rain Galaviz PA-C [address] [place] [address] [place] [address] Physician Overlocker Dermatology 04/28/21 Summer Lara MD [address] [place], [place] [address]E [place], [place] 399[address] Assigned OBGYN Provider 05/31/21 2 Tavia Wyatt MD [address] [place] [address] Dermatology 07/14/21 Johnny Murillo MD [address] [place] [address] Assigned Musculoskeletal Provider 08/30/21 03/17/22 Erica Farrell APRN EMT I/[address] [place] [address] Nurse Practitioner Cardiovascular Disease 09/09/21 Tavia Wyatt MD Assigned Surgical Provider 11/29/21 05/07/22 Diana Desir, [facility] 3033 [place] [address] Assigned MTM Pharmacist 01/02/22 Rich Barrett MD [address] [address] Physician Ophthalmology 01/21/22 Neil Kent MD [address] [place] [address] Dermatology 02/24/22 Roney Story DPM [address] [facility] [address] [place] [address] Assigned Musculoskeletal Provider 03/20/22 08/13/22 Erica Farrell APRN EMT I/[address] [place] [address] Assigned Heart and Vascular Provider 04/03/22 04/16/22 Diana Desir, [facility] [address] [place] [address] Assigned MTM Pharmacist 04/07/22 Jelena David OD [address] [facility] [place] [address] Assigned Surgical Provider 05/08/22 10/08/22 Galo Burrell MD Assigned Heart and Vascular Provider 04/17/22 06/11/22 Livan Sharif MD [address] [place] [address] [place] [address] Cardiovascular Disease 05/14/22 Livan Sharif MD [address] [place] [address] [place] [address] Assigned Heart and Vascular Provider 06/12/22 07/23/22 Catherine Cm MD [address] [place] [address] [place] 214935 Cardiovascular Disease 07/21/22 Valery Veronica, PAUcheC [address] [place] [address] 804335 Physician Overlocker Dermatology 07/21/22 Catherine Cm MD [address] [facility] [address] [place] [address] Assigned Heart and Vascular Provider 07/24/22 11/05/22 Johnny Murillo MD [address] [place] [address] 144274 Assigned Musculoskeletal Provider 08/14/22 10/08/22 Brea Quinn APRN EMT I/[address] [place] [address] 810155 Nurse Practitioner Dermatology 09/21/22 Brea Quinn APRN EMT I/[address] [place] [address] [place] [id number] Assigned Surgical Provider 10/09/22 05/01/24 [place] [address] [address] [facility] [address] [place] [address] Assigned Musculoskeletal Provider 10/09/22 05/01/24 Livan Sharif MD [address] [place] [address] [place] [address] Assigned Heart and Vascular Provider 11/06/22 11/12/22 Catherine Cm MD [address] [place] [address] Assigned Heart and Vascular Provider 11/13/22 05/27/23 Sydnie Martinez RN Personal Advocate & Liaison (PAL) Family Medicine 03/28/23 07/31/23 Alfonso Renteria MD [address] [facility] 200 [place] [address] Assigned Neuroscience Provider 04/02/23 Cheng Todd PA-C [address] [place] [address] [id number] Assigned PCP 04/30/23 07/15/23 Radha Lomeli APRN EMT I/85 [address] [place] [address] Assigned Heart and Vascular Provider 05/28/23 Jelena David OD [address] [facility] [place] [address] Ophthalmology 06/15/23 Pao Joseph, RN Personal Advocate & Liaison (PAL) Nurse 08/01/23 11/07/23 Esha Grimm PA-C [address] [place] [address] Assigned PCP 07/16/23 Valery Veronica PA-C [address] [place] [address] 842225 Physician Overlocker Dermatology 09/19/23 Rey Tay MD [address] [place] [address] 374315 MD Gastroenterology 09/20/23 Rocky Zepeda DO [address] [place] [address] 289745 Physician Gastroenterology 09/20/23 Philip Dumont MD [address] [place] [address] 268935 Physician Ophthalmology 09/22/23 Meredith Carrera PA-C [address] [place] [address] 003625 Assigned Gastroenterology Provider 11/01/23 Neil Kent MD [address] [phone] Dermatology 11/02/23 [place] [address] [place] [address] Neurological Surgery 12/26/23 Audrey Waite PA-C 500 [place] [address] Physician Overlocker Dermatology 02/28/24 Valery Veronica PA-C [address] [place] [address] Physician Overlocker Dermatology 04/10/24 documented as of this encounter
--- OUTSIDE RECORDS SUMMARY | 2024-05-27 08:51 | XMS_ITS | Encounter Summary ---
Author Organization [place] Address [address] [place] [address] Care Team Providers Care Dough Cutting Machine Operator Name Role Phone Lita Oseguera Unavailable Unavailable Marija Edgar APRN SUPERVISOR REAL ESTATE OFFICE Primary Care Provider + Marija Edgar APRN SUPERVISOR REAL ESTATE OFFICE Unavailable [phone] Mynor Broussard MD Unavailable [phone] Keisha Dotson MD Unavailable [phone] Galo Burrell MD Unavailable Unavailable Diana Desir [facility] Unavailable Rain Galaviz PA-C Unavailable [phone] Summer Lara MD Unavailable [phone] Tavia Wyatt MD Unavailable Unavailable Johnny Murillo MD Unavailable Erica Farrell APRN SUPERVISOR REAL ESTATE OFFICE Unavailable Tavia Wyatt MD Unavailable Unavailable Diana Desir [facility] Unavailable Rich Barrett MD Unavailable Neil Kent MD Unavailable Roney Story DPM Unavailable Erica Farrell APRN SUPERVISOR REAL ESTATE OFFICE Unavailable Diana Desir [facility] Unavailable [phone] Jelena David OD Unavailable Galo Burrell MD Unavailable Unavailable HoLivan MD Unavailable Livan Sharif MD Unavailable IskoCatherine boothe MD Unavailable + Valery Veronica PA-C Unavailable +[phone] Catherine Cm MD Unavailable + Johnny Murillo MD Unavailable [phone] Brea Quinn LICENSING ENGINEER SUPERVISOR REAL ESTATE OFFICE Unavailable [phone] Brea Quinn LICENSING ENGINEER SUPERVISOR REAL ESTATE OFFICE Unavailable [phone] Jose Francisco Johnson MD Unavailable Livan Sharif MD Unavailable + IsCatherine boothe MD Unavailable + Sydnie Martinez RN Unavailable Unavailable Alfonso Renteria MD Unavailable Esha Grimm-C Primary Care Provider Cheng Todd PA-C Unavailable Radha Lomeli LICENSING ENGINEER SUPERVISOR REAL ESTATE OFFICE Unavailable [phone] Jelena Davide OD Unavailable Pao Joseph RN Unavailable Unavailable Esha Grimm-C Unavailable [phone] Valery Veronica PA-C Unavailable [phone] Rey Tay MD Unavailable Rocky Zepeda DO Unavailable Philip Dumont MD Unavailable [phone] Meredith Carrera PA-C Unavailable [phone] Neil Kent MD Unavailable Juan Pablo Emmanuel MD Unavailable [phone] Audrey WaiteC Unavailable [phone] Valery VeronicaC Unavailable Encounter Details Date Type Department Care Team (Late st Contact Info) Description 11/04/2021 MyC Medical Advice [facility] [id number] [place] [phone] Diana Desir, [facility] [address] [place] [address] Social History Tobacco Use Types [...] How often do you attend christianity or gnosticist serv ices? Never 09/22/2021 Do you belong [...] PHQ-2 Score 2 09/22/2021 [facility]at [facility] - [...] in a fpc (including now)? No 09/22/2021 [place] Depression Scale Answer Date Recorded [place] Depression Score 5 01/14/2021 Last EPDS Self Harm Result Not on file 01/14 Education Answer Date Recorded What is the highest level of school you have completed or the highest degree you have received? 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 FIRE CONTROL 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 Gender Identity Female 03/02/2021 5:45 PM [...] st Contact Info) Description 05/31/2024 8:40 AM FIRE CONTROL 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 Therapy Visit [facility] [address] [place] [phone] Ingris Thompson, PT [facility] [address] [place] [address] 106 [place] [address] 05/31/2024 3:30 PM FIRE CONTROL 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 Office Visit [facility] [address] [phone] Audrey Díaz, Herminia Koo MD [address] [place] [address] 06/04/2024 3:30 PM FIRE CONTROL 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 Office Visit [facility] [place] [address] [facility] [address] [place] [phone] Jelena David, [place] [address] [facility] [place] [address] 06/11/2024 10:30 AM FIRE CONTROL 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 Appointment [facility] Respiratory Therapy [address] [place] [phone] Spec, Nurse Only Med 06/18/2024 2:50 PM FIRE CONTROL 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 Therapy Visit [facility] [address] [place] [phone] Ingris Thompson, PT [facility] 6 [facility] 106 [place] [address] 06/21/2024 2:00 PM FIRE CONTROL 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 Office Visit [facility] [place] [address] [place] [address], [address] [place] [phone] [place] [address] [place] 001267 Johnny Penn MD 6512 [place] [address] 06/25/2024 8:30 AM FIRE CONTROL 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 Office Visit [address] [phone] Valery Veronica, PAUcheC [address] [place] [address] 11/28/2024 7:45 AM CDT Virtual Visit [facility] [address] 4th [place] [phone] Meredith Carrera PA-C 909 [place] [address] documented as of this encounter Visit Diagnoses Not on filedocumented in this encounter Additional Health Concerns Infection Onset Date Last Indicated Resolved Time Rule Out COVID-19 12/18/2021 12/18/2021 12/19/2021 11:34 AM CDT Rule Out COVID-19 02/24/2022 02/24/2022 02/25/2022 1:08 PM CDT Rule Out COVID-19 04/26/2022 04/26/2022 04/26/2022 6:47 AM CDT Rule Out COVID-19 05/17/2022 05/17/2022 05/17/2022 10:20 PM FIRE CONTROL 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 Rule Out COVID-19 06/09/2022 06/09/2022 06/09/2022 9:35 AM FIRE CONTROL 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 COVID-19 06/09/2022 06/09/2022 06/30/2022 11:4 1 PM FIRE CONTROL 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 Rule Out COVID-19 11/10/2022 11/10/2022 11/11/2022 12:17 PM CDT Rule Out COVID-19 03/07/2023 03/07/2023 03/07/2023 1:20 PM CDT Rule Out COVID-19 12/26/2023 12/26/2023 12/26/2023 9:50 AM CDT Rule Out COVID-19 04/09/2024 04/09/2024 04/10/2024 6:48 PM CDT Assessment Noted Time PHQ-9 Depression Total Score: 2 04/02/20 21 10:19 AM CDT documented as of this encounter Care Teams Dough Cutting Machine Operator Relationship Specialty Start Date End Date Marija Edgar APRN CNP PCP - General Nurse Practitioner 04/30/20 04/14/23 Esha Grimm PA-C [address] [place] [address] PCP - General Family Medicine 05/04/23 Lita Oseguera Personal Advocate & Liaison (PAL) 02/28/20 03/27/23 Marija Edgar APRN SUPERVISOR REAL ESTATE OFFICE Assigned PCP 06/08/20 04/29/23 Mynor Broussard MD [address] [address] Assigned Surgical Provider 06/01/20 11/28/21 Keisha Dotson MD 909 [place] [address] Assigned Neuroscience Provider 06/04/20 04/01/23 Galo Burrell MD Assigned Heart and Vascular Provider 10/05/20 04/02/22 [facility] [address] [place] [address] Pharmacist Pharmacist 04/17/21 Rain Galaviz PA-C [address] [place] [address] [address] [place] [address] Physician Protection Manager Dermatology 04/28/21 Summer Lara MD 606 [place], [place] 240544 Assigned OBGYN Provider 05/31/21 9/ 2 Tavia Wyatt MD [address] [place] [address] Dermatology 07/14/21 Johnny Murillo MD [address] [place] [address] Assigned Musculoskeletal Provider 08/30/21 03/17/22 Erica Farrell APRN SUPERVISOR REAL ESTATE OFFICE [address] [facility] [address] [place] [address] Nurse Practitioner Cardiovascular Disease 09/09/21 Tavia Wyatt MD Assigned Surgical Provider 11/29/21 05/07/22 Diana Desir [facility] [address] [place] [address] Assigned MTM Pharmacist 01/02/22 Rihc Barrett MD 516 [facility] [address] [place] [address] Physician Ophthalmology 01/21/22 Neil Kent MD 500 [place] [address] Dermatology 02/24/22 Roney Story DPM [address] [facility] [address] [place] [address] Assigned Musculoskeletal Provider 03/20/22 08/13/22 Erica Farrell APRN SUPERVISOR REAL ESTATE OFFICE 1700 [place] [address] Assigned Heart and Vascular Provider 04/03/22 04/16/22 Diana Desir [facility] 3033 [place] [address] Assigned MTM Pharmacist 04/07/22 Jelena David OD [address] [facility] [place] [address] Assigned Surgical Provider 05/08/22 10/08/22 Galo Burrell MD Assigned Heart and Vascular Provider 04/17/22 06/11/22 Livan Sharif MD [address] [place] 193605 Cardiovascular Disease 05/14/22 Livan Sharif MD [address] [address] [place] [address] Assigned Heart and Vascular Provider 06/12/22 07/23/22 Catherine Cm MD [address] [address] [place] 065225 Cardiovascular Disease 07/21/22 Valery Veronica, PA-C 909 [place] [address] Physician Protection Manager Dermatology 07/21/22 Catherine Cm MD [address] [place] [address] [place] 157595 Assigned Heart and Vascular Provider 07/24/22 11/05/22 Johnny Murillo MD [address] [facility] [address] [place] [address] Assigned Musculoskeletal Provider 08/14/22 10/08/22 Brea Quinn APRN SUPERVISOR REAL ESTATE OFFICE 500 [place], [place] 348455 Nurse Practitioner Dermatology 09/21/22 Brea Quinn APRN SUPERVISOR REAL ESTATE OFFICE 64[address] [place], [place] 424762 Assigned Surgical Provider 10/09/22 05/01/24 [place] [address] 224577 Assigned Musculoskeletal Provider 10/09/22 05/01/24 Livan Sharif MD [address] [facility] [address] [place] [address] Assigned Heart and Vascular Provider 11/06/22 11/12/22 Catherine Cm MD [address] [facility] [place] [address] Assigned Heart and Vascular Provider 11/13/22 05/27/23 Sydnie Martinez RN Personal Advocate & Liaison (PAL) Family Medicine 03/28/23 07/31/23 Alfonso Renteria MD 5775 [facility] 200 [place], [place] 046776 Assigned Neuroscience Provider 04/02/23 Cheng Todd PA-C [address] [place] [address] Assigned PCP 04/30/23 07/15/23 Radha oLmeli APRN SUPERVISOR REAL ESTATE OFFICE [address] [facility] [address] [place] [address] Assigned Heart and Vascular Provider 05/28/23 Jelena David OD [address] [facility] [place] [address] MD Ophthalmology 06/15/23 Pao Joseph, VJ Personal Advocate & Liaison (PAL) Nurse 08/01/23 11/07/23 Esha Grimm PA-C [address] [place] [phone] Assigned PCP 07/16/23 Valery Veronica PA-C [address] [place] [address] 175305 Physician Protection Manager Dermatology 09/19/23 Rey Tay MD [address] [place] [address] 839325 Gastroenterology 09/20/23 Rocky Zepeda DO [address] [place] [address] 737735 Physician Gastroenterology 09/20/23 Philip Dumont MD [address] [place] [address] 985865 Physician Ophthalmology 09/22/23 Meredith Carrera PA-C [address] [place] [address] 474305 Assigned Gastroenterology Provider 11/01/23 Neil Kent MD [address] [place] [address] Dermatology 11/02/23 [place] [address] [place], [place] 850[address] Neurological Surgery 12/26/23 Audrey Waite PA-C 500 [place] [address] Physician Protection Manager Dermatology 02/28/24 Valery Veronica PA-C 372733 [address], [place] [address] Physician Protection Manager Dermatology 04/10/24 documented as of this encounter
--- OUTSIDE RECORDS SUMMARY | 2024-05-27 08:51 | XMS_ITS | Encounter Summary ---
Author Organization [place] Address [address] [place] [address] Care Team Providers Care Women'S Ministry Director Name Role Phone Lita Oseguera Unavailable Unavailable Marija Edgar APRN SUMO WRESTLER Primary Care Provider + Marija Edgar APRN SUMO WRESTLER Unavailable [phone] Keisha Dotson MD Unavailable Diana Desir [facility] Unavailable Rain Galaviz PA-C Unavailable Tavia Wyatt MD Unavailable Unavailable Erica Farrell APRN SUMO WRESTLER Unavailable Tavia Wyatt MD Unavailable Unavailable Rich Barrett MD Unavailable [phone] Neil Kent MD Unavailable Roney Story DPM Unavailable [phone] Diana Desir [facility] Unavailable [phone] Jelena David OD Unavailable Galo Burrell MD Unavailable Unavailable Livan Sharif MD Unavailable Livan Sharif MD Unavailable Catherine Cm MD Unavailable + Valery Veronica PA-C Unavailable Catherine Cm MD Unavailable + Johnny Murillo MD Unavailable [phone] Brea Quinn MANAGER ASSET SUMO WRESTLER Unavailable [phone] Brea Quinn MANAGER ASSET SUMO WRESTLER Unavailable [phone] Jose Francisco Johnson MD Unavailable Livan Sharif MD Unavailable Catherine Cm MD Unavailable + Sydnie Martinez RN Unavailable Unavailable Alfonso Renteria MD Unavailable [phone] Esha Grimm PA-C Primary Care Provider Cheng Todd PA-C Unavailable Radha Lomeli MANAGER ASSET SUMO WRESTLER Unavailable Frankie Jelena Garcia OD Unavailable Pao Joseph RN Unavailable Unavailable Esha Grimm PA-C Unavailable Valery Veronica PA-C Unavailable Rey Tay MD Unavailable Rocky Zepeda DO Unavailable Philip Dumont MD Unavailable [phone] Meredith Carrera PA-C Unavailable Neil Kent MD Unavailable Juan Pablo Emmanuel MD Unavailable Audrey Waite PA-C Unavailable Valery Veronica PA-C Unavailable [phone] Encounter Details Date Type Department Care Team (Late st Contact Info) Description 05/01/2022 MyC Medical Advice [facility] [id number] [place] [phone] Diana Desir, [facility] [address] [place] [address] Social History Tobacco Use Types Packs/Day Years [...] How often do you attend druze or confucianism serv ices? Never 09/22/2021 Do you belong [...] Recorded PHQ-2 Score 2 12/[facility] - [facility] Stress [...] a group home (including now)? No 09/22/2021 [place] Depression Scale Answer Date Recorded [place] Depression Score 5 01/14/2021 Last EPDS Self Harm Result Not on file 01/14 Education Answer Date Recorded What is the highest level of school you have completed or the highest degree you have received? 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 CAREER TECHNICAL EDUCATION TEACHER Gender Identity Female 03/02/2021 5:45 PM [...] st Contact Info) Description 05/31/2024 8:40 AM CAREER TECHNICAL EDUCATION TEACHER Therapy Visit [facility] Rehabilitation Services [address] [place] [phone] Ingris Thompson, PT [facility] [address] [place] [address] [address] [place] [address] 05/31/2024 3:30 PM CAREER TECHNICAL EDUCATION TEACHER Office Visit [facility] Specialty [address] [phone] Audrey Díaz, Herminia Koo MD [address] [place] [address] 06/04/2024 3:30 PM CAREER TECHNICAL EDUCATION TEACHER Office Visit [facility] [place] [address] [place] [address] [address] EN[place] German [phone] Jelena David OD [address] [place] [address] [place] [address] 06/11/2024 10:30 AM CAREER TECHNICAL EDUCATION TEACHER Appointment [facility] Respiratory Therapy [address] [place] [phone] Spec, Nurse Only Med 06/18/2024 2:50 PM CAREER TECHNICAL EDUCATION TEACHER Therapy Visit [facility] Rehabilitation Services [place] [address] [place] [address] [address] [place] [address] Ingris Thompson, PT [facility] 516 [facility] [address] [place], [place] 9[address] 06/21/2024 2:00 PM CAREER TECHNICAL EDUCATION TEACHER Office Visit [facility] Neurology Clinics - [place] [address] [facility], [address] [place] [phone] [place] [address] RAZO [address] [place] [place] [address] Johnny Penn MD 5892 [place] [address] 06/25/2024 8:30 AM CAREER TECHNICAL EDUCATION TEACHER Office Visit [address] [phone] Valery Veronica, PABaldo [address] [place] [address] 806995 11/28/2024 7:45 AM CDT Virtual Visit [facility] Gastroenterology Clinic [address] 4th [place] [phone] Meredith Carrera PA-C [address] [place] [address] 155225 documented as of this encounter Visit Diagnoses Not on filedocumented in this encounter Additional Health Concerns Infection Onset Date Last Indicated Resolved Time Rule Out COVID-19 05/17/2022 05/17/2022 05/17/2022 10:20 PM CAREER TECHNICAL EDUCATION TEACHER Rule Out COVID-19 06/09/2022 06/09/2022 06/09/2022 9:35 AM CAREER TECHNICAL EDUCATION TEACHER COVID-19 06/09/2022 06/09/2022 06/30/2022 11:4 1 PM CAREER TECHNICAL EDUCATION TEACHER Rule Out COVID-19 11/10/2022 11/10/2022 11/11/2022 12:17 PM CDT Rule Out COVID-19 03/07/2023 03/07/2023 03/07/2023 1:20 PM CDT Rule Out COVID-19 12/26/2023 12/26/2023 12/26/2023 9:50 AM CDT Rule Out COVID-19 04/09/2024 04/09/2024 04/10/2024 6:48 PM CDT Assessment Noted Time PHQ-9 Depression Total Score: 2 12/19/19 2:50 PM CDT documented as of this encounter Care Teams Women'S Ministry Director Relationship Specialty Start Date End Date Marija Edgar APRN SUMO WRESTLER PCP - General Nurse Practitioner 04/30/20 04/14/23 Esha Grimm PA-C [address] [place] [phone] PCP - General Family Medicine 05/04/23 Lita Oseguera Personal Advocate & Liaison (PAL) 02/28/20 03/27/23 Marija Edgar APRN SUMO WRESTLER Assigned PCP 06/08/20 04/29/23 Keisha Dotson MD 909 [place] [address] Assigned Neuroscience Provider 06/04/20 04/01/23 Diana Desir [facility] [address] [place] [address] Pharmacist Pharmacist 04/17/21 Rain Galaviz PA-C [address] [place] [address] [address] [place] [address] Physician Mds Rn Dermatology 04/28/21 Tavia Wyatt MD [address] [place] [address] [place] [address] Dermatology 07/14/21 Erica Farrell, MANAGER ASSET SUMO WRESTLER [address] [place] [address] Nurse Practitioner Cardiovascular Disease 09/09/21 Tavia Wyatt MD Assigned Surgical Provider 11/29/21 05/07/22 Rich Barrett MD 516 [facility] [address] [place] [address] Physician Ophthalmology 01/21/22 Neil Kent MD 500 [place] [address] Dermatology 02/24/22 Roney Story DPM [address] [facility] [address] [place] [address] Assigned Musculoskeletal Provider 03/20/22 08/13/22 Diana Desir, [facility] [address] [facility] [place] [address] Assigned MTM Pharmacist 04/07/22 Jelena David OD [address] [facility] [place] [address] Assigned Surgical Provider 05/08/22 10/08/22 Galo Burrell MD Assigned Heart and Vascular Provider 04/17/22 06/11/22 Livan Sharif MD [address], [facility] [address] [place] [address] Cardiovascular Disease 05/14/22 Livan Sharif MD [address], [facility] [address] [place] 4[address]95 Assigned Heart and Vascular Provider 06/12/22 07/23/22 Catherine Cm MD [address] [facility]00 [place] 142225 Cardiovascular Disease 07/21/22 Valery Veronica, PA-C [address] [place] [address] 368555 Physician Mds Rn Dermatology 07/21/22 Catherine Cm MD [address] [facility]00 [place] 118975 Assigned Heart and Vascular Provider 07/24/22 11/05/22 Johnny Murillo MD [address] [phone] Assigned Musculoskeletal Provider 08/14/22 10/08/22 Brea Quinn APRN SUMO WRESTLER [address] [place] [address] 254525 Nurse Practitioner Dermatology 09/21/22 Brea Quinn APRN SUMO WRESTLER [facility]01 [facility] [place] [place] [address] Assigned Surgical Provider 10/09/22 05/01/24 [place] [address] [place] [address] Assigned Musculoskeletal Provider 10/09/22 05/01/24 Livan Sharif MD [address] [place] [address] [place] [address] Assigned Heart and Vascular Provider 11/06/22 11/12/22 Catherine Cm MD [address] [place] [address] [place] [address] Assigned Heart and Vascular Provider 11/13/22 05/27/23 Sydnie Martinez, RN Personal Advocate & Liaison (PAL) Family Medicine 03/28/23 07/31/23 Alfonso Renteria MD [address] [facility] 200 [place], [place] 273996 Assigned Neuroscience Provider 04/02/23 Cheng Todd PA-C [address] [place] [address] Assigned PCP 04/30/23 07/15/23 Radha Lomeli APRN SUMO WRESTLER [address] [place] 007325 Assigned Heart and Vascular Provider 05/28/23 Jelena David Radha, OD [address] [place] [address] MD Ophthalmology 06/15/23 Pao Joseph, RN Personal Advocate & Liaison (PAL) Nurse 08/01/23 11/07/23 Esha Grimm PA-C [address] [place] [phone] Assigned PCP 07/16/23 Valery Veronica PA-C [address] [place] [address] 320725 Physician Mds Rn Dermatology 09/19/23 Rey Tay MD [address] [place] [address] MD Gastroenterology 09/20/23 Rocky Zepeda DO [address] [place] [address] 920635 Physician Gastroenterology 09/20/23 Philip Dumont MD [address] [place] [address] 765375 Physician Ophthalmology 09/22/23 Meredith Carrera PA-C [address] [place] [address] 210545 Assigned Gastroenterology Provider 11/01/23 Neil Kent MD [address] [address] Dermatology 11/02/23 [place] [address] RAZO [address] [place] [place] [address] Neurological Surgery 12/26/23 Audrey Waite PA-C 500 [place], [place] 342645 Physician Mds Rn Dermatology 02/28/24 Valery Veronica PA-C [address] [place] [address] Physician Mds Rn Dermatology 04/10/24 documented as of this encounter
--- OUTSIDE RECORDS SUMMARY | 2024-05-27 08:51 | XMS_ITS | Encounter Summary ---
Author Organization [place] Address [address] [place] [address] Care Team Providers Care Inspection Clerk Name Role Phone Lita Oseguera Unavailable Unavailable Marija Edgar APRN POWERHOUSE OPERATOR Primary Care Provider + Marija Edgar APRN POWERHOUSE OPERATOR Unavailable [phone] Keisha Dotson MD Unavailable [phone] Galo Burrell MD Unavailable Unavailable Diana Desir [facility] Unavailable [phone] Rain Galaviz PA-C Unavailable [phone] Summer Lara MD Unavailable [phone] Tavia Wyatt MD Unavailable Unavailable Johnny Murillo MD Unavailable Erica Farrell APRN POWERHOUSE OPERATOR Unavailable Tavia Wyatt MD Unavailable Unavailable Diana Desir [facility] Unavailable [phone] Rich Barrett MD Unavailable [phone] Neil Kent MD Unavailable Roney StoryM Unavailable [phone] Erica Farrell APRN POWERHOUSE OPERATOR Unavailable Diana Desir [facility] Unavailable FrankieJelenae OD Unavailable Galo Burrell MD Unavailable Unavailable Livan Sharif MD Unavailable Livan Sharif MD Unavailable IsCatherine hobbs MD Unavailable + Valery Veronica PA-C Unavailable [phone] IsCatherine hobbs MD Unavailable + Johnny Murillo MD Unavailable [phone] Brea Quinn ADMISSIONS CLERK POWERHOUSE OPERATOR Unavailable [phone] Brea Quinn ADMISSIONS CLERK POWERHOUSE OPERATOR Unavailable [phone] Jose Francisco Johnson MD Unavailable Livan Sharif MD Unavailable + IsraynaCatherine boothe MD Unavailable + Sydnie Martinez RN Unavailable Unavailable Alfonso Renteria MD Unavailable Esha Grimm PA-C Primary Care Provider Cheng Todd PA-C Unavailable Radha Lomeli ADMISSIONS CLERK POWERHOUSE OPERATOR Unavailable [phone] Jelena David OD Unavailable [phone] Pao Joseph RN Unavailable Unavailable Esha Grimm PA-C Unavailable [phone] Valery Veronica PA-C Unavailable [phone] Rey Tay MD Unavailable Rocky Zepeda DO Unavailable Philip Dumont MD Unavailable [phone] Meredith Carrera PA-C Unavailable [phone] Neil Kent MD Unavailable Juan Pablo Emmanuel MD Unavailable [phone] Audrey Waite PA-C Unavailable [phone] Valery Veronica PA-C Unavailable [phone] Encounter Details Date Type Department Care Team (Late st Contact Info) Description 03/09/2022 MyC Medical Advice [address] [address] Abby Dye Social History Tobacco [...] How often do you attend jewish or muslim serv ices? Never 09/22/2021 Do [...] Answer Date Recorded PHQ-2 Score 2 12/18/2021 [facility] [...] in a detention (including now)? No 09/22/2021 [place] Depression Scale Answer Date Recorded [place] Depression Score 5 01/14/2021 Last EPDS Self Harm Result Not on file 01/14 Education Answer Date Recorded What is the highest level of school you have completed or the highest degree you have received? 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 ADMITTING OFFICE [place] Gender Identity Female 03/02/2021 5:45 PM CDT [...] st Contact Info) Description 05/31/2024 8:40 AM ADMITTING OFFICE [place] Therapy Visit [facility] [address] [place] [phone] Ingris Thompson, PT [facility] [address] [place] [address] 106 [place] [address] 05/31/2024 3:30 PM ADMITTING OFFICE [place] Office Visit [facility] [address] [phone] Audrey Díaz, Herminia Koo MD [address] [place] [address] [phone] 06/04/2024 3:30 PM ADMITTING OFFICE [place] [facility] [facility] [address] [place] [phone] Jelena David, SONJA [address] [place] [address] [place] [address] 06/11/2024 10:30 AM ADMITTING OFFICE ESCORT Appointment [facility] Respiratory Therapy [address] [place] [phone] Spec, Nurse Only Med 06/18/2024 2:50 PM ADMITTING OFFICE ESCORT Therapy Visit [facility] [address] [place] [phone] Ingris Thompson, PT [facility] 516 [facility] 106 [place], [place] 84[address] 06/21/2024 2:00 PM ADMITTING OFFICE ESC[place] Office Visit [facility] - [place] [address] [facility], [address] [place] [phone] [place] [address] [place], [place] 9[address] Johnny Penn MD 6582 [place], [place] 997555 06/25/2024 8:30 AM ADMITTING OFFICE ESCORT Office Visit [address] [phone] Valery Veronica PA-C [address] [place] [address] 250785 11/28/2024 7:45 AM CDT Virtual Visit [facility] [address] 4th [place] [phone] Meredith Carrera PA-C [address] [place] [address] 833475 documented as of this encounter Visit Diagnoses Not on filedocumented in this encounter Additional Health Concerns Infection Onset Date Last Indicated Resolved Time Rule Out COVID-19 04/26/2022 04/26/2022 04/26/2022 6:47 AM CDT Rule Out COVID-19 05/17/2022 05/17/2022 05/17/2022 10:20 PM ADMITTING OFFICE ESCORT Rule Out COVID-19 06/09/2022 06/09/2022 06/09/2022 9:35 AM ADMITTING OFFICE ESCORT COVID-19 06/09/2022 06/09/2022 06/30/2022 11:4 1 PM ADMITTING OFFICE ESCORT Rule Out COVID-19 11/10/2022 11/10/2022 11/11/2022 12:17 PM CDT Rule Out COVID-19 03/07/2023 03/07/2023 03/07/2023 1:20 PM CDT Rule Out COVID-19 12/26/2023 12/26/2023 12/26/2023 9:50 AM CDT Rule Out COVID-19 04/09/2024 04/09/2024 04/10/2024 6:48 PM CDT Assessment Noted Time PHQ-9 Depression Total Score: 2 12/19/19 2:50 PM CDT documented as of this encounter Care Teams Inspection Clerk Relationship Specialty Start Date End Date Marija Edgar APRN POWERHOUSE OPERATOR PCP - General Nurse Practitioner 04/30/20 04/14/23 Esha Grimm PA-C [address] [place] [address]783 PCP - General Family Medicine 05/04/23 Lita Oseguera Personal Advocate & Liaison (PAL) 02/28/20 03/27/23 Marija Edgar APRN POWERHOUSE OPERATOR Assigned PCP 06/08/20 04/29/23 Keisha Dotson MD 909 [place] [address] Assigned Neuroscience Provider 06/04/20 04/01/23 Galo Burrell MD Assigned Heart and Vascular Provider 10/05/20 04/02/22 Diana Deisr, [facility] 3033 [place] [address] Pharmacist Pharmacist 04/17/21 Rain Galaviz PA-C [address] [place] [address] [place] [address] Physician Media Assistant Dermatology 04/28/21 Summer Lara MD [address] [place], [place] [address] [address] Assigned OBGYN Provider 05/31/21 2 Tavia Wyatt MD [address] [place] [address] Dermatology 07/14/21 Johnny Murillo MD [facility] [address] [address] Assigned Musculoskeletal Provider 08/30/21 03/17/22 Erica Farrell APRN POWERHOUSE OPERATOR 6[address] [facility] [address] [place] [address] Nurse Practitioner Cardiovascular Disease 09/09/21 Tavia Wyatt MD Assigned Surgical Provider 11/29/21 05/07/22 Diana Desir, [facility] 3033 [place] [address] Assigned MTM Pharmacist 01/02/22 Rich Barrett MD 516 [facility] 9A [place] [address] Physician Ophthalmology 01/21/22 Neil Kent MD 500 [place] [address] Dermatology 02/24/22 Roney Story DPM [address] [facility] [address] [place] [address] Assigned Musculoskeletal Provider 03/20/22 08/13/22 Erica Farrell APRN POWERHOUSE OPERATOR 1700 [place] [address] Assigned Heart and Vascular Provider 04/03/22 04/16/22 Diana Desir, [facility] 3033 [place] [address] Assigned MTM Pharmacist 04/07/22 Jelena David OD [address] [place] [address] Assigned Surgical Provider 05/08/22 10/08/22 Galo Burrell MD Assigned Heart and Vascular Provider 04/17/22 06/11/22 Livan Sharif MD 6405 [facility] [place] , [facility] [address] [place] [phone] Cardiovascular Disease 05/14/22 Livan Sharif MD [address] [facility]00 [place], [place] 741365 Assigned Heart and Vascular Provider 06/12/22 07/23/22 Catherine Cm MD [address] [place] [address] [place] [address] Cardiovascular Disease 07/21/22 Valery Veronica, PA-C [address] [place] [address] 841195 Physician Media Assistant Dermatology 07/21/22 Catherine Cm MD [address] [place] [address] [place] [phone] Assigned Heart and Vascular Provider 07/24/22 11/05/22 Johnny Murillo MD [address] [place] [address] 078424 Assigned Musculoskeletal Provider 08/14/22 10/08/22 Brea Quinn APRN POWERHOUSE OPERATOR [address] [place] [address] 779845 Nurse Practitioner Dermatology 09/21/22 Brea Quinn APRN POWERHOUSE OPERATOR [address] [place] [address] EN[place] DOE [id number] Assigned Surgical Provider 10/09/22 05/01/24 [place] [address] [place] [address] 081167 Assigned Musculoskeletal Provider 10/09/22 05/01/24 Livan Sharif MD [address], [facility] [address] [place] [address] Assigned Heart and Vascular Provider 11/06/22 11/12/22 Catherine Cm MD [address] [facility] [address] [place] [address] Assigned Heart and Vascular Provider 11/13/22 05/27/23 Sydnie Martinez, RN Personal Advocate & Liaison (PAL) Family Medicine 03/28/23 07/31/23 Alfonso Renteria MD [address] [facility] 200 [place] [address] Assigned Neuroscience Provider 04/02/23 Cheng Todd PA-C [address] [place] [address] [id number] Assigned PCP 04/30/23 07/15/23 Radha Lomeli, ARLENE POWERHOUSE OPERATOR [address] [place] [address] Assigned Heart and Vascular Provider 05/28/23 Jelena David OD [address] [place] [address] Ophthalmology 06/15/23 Pao Joseph, VJ Personal Advocate & Liaison (PAL) Nurse 08/01/23 11/07/23 Esha Grimm PA-C [address] [place] [address] Assigned PCP 07/16/23 Valery Veronica PA-C [address] [place] [address] Physician Media Assistant Dermatology 09/19/23 Rey Tay MD [address] [place] [address] MD Gastroenterology 09/20/23 Rocky Zepeda DO [address] [place] [address] 277595 Physician Gastroenterology 09/20/23 Philip Dumont MD [address] [place] [address] 008335 Physician Ophthalmology 09/22/23 Meredith Carrera PA-C [address] [place] [address] 881465 Assigned Gastroenterology Provider 11/01/23 Neil Kent MD [address] 772930 Dermatology 11/02/23 [place] [address] [place] [address] Neurological Surgery 12/26/23 Audrey Waite PA-C [address] [place] [address] 626955 Physician Media Assistant Dermatology 02/28/24 Valery Veronica PA-C [address] [place] [address] Physician Media Assistant Dermatology 04/10/24 documented as of this encounter
--- OUTSIDE RECORDS SUMMARY | 2024-05-27 08:51 | XMS_ITS | Encounter Summary ---
Author Organization [facility] Address [address] [place] [address] Care Team Providers Care Soaker Helper Name Role Phone Lita Oseguera Unavailable Unavailable Marija Edgar APRN BENCH PRESS OPERATOR Primary Care Provider + Marija Edgar APRN BENCH PRESS OPERATOR Unavailable [phone] Keisha Dotson MD Unavailable Diana Desir [facility] Unavailable [phone] Rain Galaviz PA-C Unavailable Tavia Wyatt MD Unavailable Unavailable Erica Farrell APRN BENCH PRESS OPERATOR Unavailable Tavia Wyatt MD Unavailable Unavailable Rich Barrett MD Unavailable [phone] Neil Kent MD Unavailable Roney Story DPM Unavailable [phone] Diana Desir [facility] Unavailable [phone] Jelena David OD Unavailable Galo Burrell MD Unavailable Unavailable Livan Sharif MD Unavailable Livan Sharif MD Unavailable Catherine Cm MD Unavailable + Valery Veronica PA-C Unavailable Catherine Cm MD Unavailable + Johnny Murillo MD Unavailable [phone] Brea Quinn DIESEL ENGINE ERECTOR BENCH PRESS OPERATOR Unavailable [phone] Brea Quinn DIESEL ENGINE ERECTOR BENCH PRESS OPERATOR Unavailable [phone] Jose Francisco Johnson MD Unavailable Livan Sharif MD Unavailable Catherine Cm MD Unavailable + Sydnie Martinez RN Unavailable Unavailable Alfonso Renteria MD Unavailable [phone] Esha Grimm PA-C Primary Care Provider Cheng Todd PA-C Unavailable Radha Lomeli DIESEL ENGINE ERECTOR BENCH PRESS OPERATOR Unavailable Frankie Jelena Garcia OD Unavailable Pao Joseph RN Unavailable Unavailable Esha Grimm PA-C Unavailable [phone] Valery Veronica PA-C Unavailable [phone] Rey Tay MD Unavailable Rocky Zepeda DO Unavailable Philip Dumont MD Unavailable [phone] Meredith Carrera PA-C Unavailable [phone] Neil Kent MD Unavailable Juan Pablo Emmanuel MD Unavailable Audrey Waite PA-C Unavailable Valery Veronica PA-C Unavailable Encounter Details Date Type Department Care Team (Late st Contact Info) Description 04/20/2022 MyC Medical Advice [facility] Heart [address] [place] [phone] Margaret Rendon, VJ Social History Tobacco Use [...] How often do you attend baptism or taoist serv ices? Never 09/22/2021 Do [...] Answer Date Recorded PHQ-2 Score 2 12/[facility] [facility] [...] in a chcf (including now)? No 09/22/2021 [place] Depression [...] CDT Legal Sex Female 4:13 AM STORAGE FACILITY HOUSEKEEPER Gender Identity Female 03/02/2021 5:45 PM CDT [...] Contact Info) Description 05/31/2024 8:40 AM STORAGE FACILITY HOUSEKEEPER Therapy Visit [facility] Rehabilitation Services [address] [place] [phone] Ingris Thompson, PT [facility] [address] [place] [address] [address] [place] [address] 05/31/2024 3:30 PM STORAGE FACILITY HOUSEKEEPER Office Visit [facility] Specialty Clinic [place] [address] [place] [phone] Audrey Díaz, Herminia Koo MD [address] [place] [address] 06/04/2024 3:30 PM STORAGE FACILITY HOUSEKEEPER Office Visit [facility] [place] [address] [place] [address] [address] [place] [phone] Jelena David OD [address] [place] [address] [place] [address] 06/11/2024 10:30 AM STORAGE FACILITY HOUSEKEEPER Appointment [facility] Respiratory Therapy [address] [place] [phone] Spec, Nurse Only Med 06/18/2024 2:50 PM STORAGE FACILITY HOUSEKEEPER Therapy Visit [facility] Rehabilitation Services [place] [address] [place] [address] [address] [place] [address] Ingris Thompson, PT [facility] 6 [facility] 106 [place], [place] [address] 06/21/2024 2:00 PM STORAGE FACILITY HOUSEKEEPER Office Visit [facility] Neurology Clinics - [place] [address] [facility], [address] [place] [phone] [place] [address] [place], [place] [phone] Johnny Penn MD [address] [facility] [place], [place] 47[address] 06/25/2024 8:30 AM STORAGE FACILITY HOUSEKEEPER Office Visit [address] [address] Valery Veronica, PAUcheC [address] [place] [address]345 11/28/2024 7:45 AM CDT Virtual Visit [facility] Gastroenterology Clinic [address] 4th [place] [phone] Meredith Carrera PA-C [address] [place] [address] [phone] documented as of this encounter Visit Diagnoses Not on filedocumented in this encounter Additional Health Concerns Infection Onset Date Last Indicated Resolved Time Rule Out COVID-19 04/26/2022 04/26/2022 04/26/2022 6:47 AM CDT Rule Out COVID-19 05/17/2022 05/17/2022 05/17/2022 10:20 PM STORAGE FACILITY HOUSEKEEPER Rule Out COVID-19 06/09/2022 06/09/2022 06/09/2022 9:35 AM STORAGE FACILITY HOUSEKEEPER COVID-19 06/09/2022 06/09/2022 06/30/2022 11:4 1 PM STORAGE FACILITY HOUSEKEEPER Rule Out COVID-19 11/10/2022 11/10/2022 11/11/2022 12:17 PM CDT Rule Out COVID-19 03/07/2023 03/07/2023 03/07/2023 1:20 PM CDT Rule Out COVID-19 12/26/2023 12/26/2023 12/26/2023 9:50 AM CDT Rule Out COVID-19 04/09/2024 04/09/2024 04/10/2024 6:48 PM CDT Assessment Noted Time PHQ-9 Depression Total Score: 2 12/19/19 2:50 PM CDT documented as of this encounter Care Teams Soaker Helper Relationship Specialty Start Date End Date Marija Edgar APRN BENCH PRESS OPERATOR PCP - General Nurse Practitioner 04/30/20 04/14/23 Esha Grimm PA-C [address] [place] [phone] PCP - General Family Medicine 05/04/23 Lita Oseguera Personal Advocate & Liaison (PAL) 02/28/20 03/27/23 Marija Edgar APRN BENCH PRESS OPERATOR Assigned PCP 06/08/20 04/29/23 Keisha Dotson MD 909 [place], [place] 064225 Assigned Neuroscience Provider 06/04/20 04/01/23 Diana Desir [facility] 3033 [place] [address] Pharmacist Pharmacist 04/17/21 Rain Galaviz PA-C [address] [place] [address] [address] [facility] [place] [address] Physician Custom Decorating Consultant Dermatology 04/28/21 Tavia Wyatt MD [address] [place] [address] [address] [facility] [place] [place] [address] Dermatology 07/14/21 Erica Farrell APRN BENCH PRESS OPERATOR [address] [place] [address] Nurse Practitioner Cardiovascular Disease 09/09/21 Tavia Wyatt MD Assigned Surgical Provider 11/29/21 05/07/22 Rich Barrett MD [address] [facility] 9[address] [place], [place] [address] Physician Ophthalmology 01/21/22 Neil Kent MD 500 [place] [address] Dermatology 02/24/22 Roney Story DPM [address] [facility] [address] [place] [address] Assigned Musculoskeletal Provider 03/20/22 08/13/22 Diana Desir, [facility] [address] [place] [address] Assigned MTM Pharmacist 04/07/22 Jelena David OD [facility] [facility] [place] [address] Assigned Surgical Provider 05/08/22 10/08/22 Galo Burrell MD Assigned Heart and Vascular Provider 04/17/22 06/11/22 Livan Sharif MD [address], [facility] [address] [place] [address] Cardiovascular Disease 05/14/22 Livan Sharif MD [address], [facility] [address] [place] 597635 Assigned Heart and Vascular Provider 06/12/22 07/23/22 Catherine Cm MD [address] [facility]00 [place] [address]75 Cardiovascular Disease 07/21/22 Valery Veronica, PA-C [address] [place] [address]85 Physician Custom Decorating Consultant Dermatology 07/21/22 Catherine Cm MD [address] [facility]00 [place] 689635 Assigned Heart and Vascular Provider 07/24/22 11/05/22 Johnny Murillo MD [address] [place] [address] [phone] Assigned Musculoskeletal Provider 08/14/22 10/08/22 Brea Quinn APRN BENCH PRESS OPERATOR [address] [place] [address] [phone] Nurse Practitioner Dermatology 09/21/22 Brea Quinn APRN BENCH PRESS OPERATOR [address] [place] [address] Assigned Surgical Provider 10/09/22 05/01/24 [place] [address] [address] Assigned Musculoskeletal Provider 10/09/22 05/01/24 Livan Sharif MD [address] [facility] [address] [place] [address] Assigned Heart and Vascular Provider 11/06/22 11/12/22 Catherine Cm MD [address] [place] [address] [place] [address] Assigned Heart and Vascular Provider 11/13/22 05/27/23 Sydnie Martinez, RN Personal Advocate & Liaison (PAL) Family Medicine 03/28/23 07/31/23 Alfonso Renteria MD 5775 [facility] 200 [place] [address] Assigned Neuroscience Provider 04/02/23 Cheng Todd PA-C [address] [place] [address] [phone] Assigned PCP 04/30/23 07/15/23 Radha Lomeli APRN BENCH PRESS OPERATOR [address] [place] [address] Assigned Heart and Vascular Provider 05/28/23 Jelena David OD [address] [facility] [place] [address] MD Ophthalmology 06/15/23 Pao Joseph, RN Personal Advocate & Liaison (PAL) Nurse 08/01/23 11/07/23 Esha Grimm PA-C [address] [place] [address] Assigned PCP 07/16/23 Valery Veronica PA-C [address] [place] [address]25 Physician Custom Decorating Consultant Dermatology 09/19/23 Rey Tay MD [address] [place] [address] MD Gastroenterology 09/20/23 Rocky Zepeda DO [address] [place] [address] [phone] Physician Gastroenterology 09/20/23 Philip Dumont MD [address] [place] [address] [phone] Physician Ophthalmology 09/22/23 Meredith Carrera PA-C [address] [place] [address] 055455 Assigned Gastroenterology Provider 11/01/23 Neil Kent MD [address] [address] Dermatology 11/02/23 [place] [address] [address] Neurological Surgery 12/26/23 Audrey Waite PA-C 500 [place] [address] Physician Custom Decorating Consultant Dermatology 02/28/24 Valery Veronica PA-C [address] [place] [address] Physician Custom Decorating Consultant Dermatology 04/10/24 documented as of this encounter
--- OUTSIDE RECORDS SUMMARY | 2024-05-27 08:51 | XMS_ITS | Encounter Summary ---
Author Organization [facility] Address [address] [place] [address] Care Team Providers Care Slot Operations Manager Name Role Phone Lita Oseguera Unavailable Unavailable Marija Edgar APRN SUPPLY CHAIN INTERN Primary Care Provider + Marija Edgar APRN SUPPLY CHAIN INTERN Unavailable [phone] Mynor Broussard MD Unavailable [phone] Keisha Dotson MD Unavailable Galo Burrell MD Unavailable Unavailable Diana Desir [facility] Unavailable Rain Galaviz PA-C Unavailable Summer Lara MD Unavailable [phone] Tavia Wyatt MD Unavailable Unavailable Johnny Murillo MD Unavailable Erica Farrell APRN SUPPLY CHAIN INTERN Unavailable Tavia Wyatt MD Unavailable Unavailable Diana Desir [facility] Unavailable Rich Barrett MD Unavailable Neil Kent MD Unavailable Roney Story DPM Unavailable [phone] Erica Farrell APRN SUPPLY CHAIN INTERN Unavailable Diana Desir [facility] Unavailable [phone] Jelena David OD Unavailable Galo Burrell MD Unavailable Unavailable HoLivan MD Unavailable Livan Sharif MD Unavailable IskoCatherine boothe MD Unavailable + Valery Veronica PA-C Unavailable +[phone] Cahterine Cm MD Unavailable + Johnny Murillo MD Unavailable [phone] Brea Quinn PRINCIPAL SOFTWARE ARCHITECT SUPPLY CHAIN INTERN Unavailable [phone] Brea Quinn PRINCIPAL SOFTWARE ARCHITECT SUPPLY CHAIN INTERN Unavailable [phone] Jose Francisco Johnson MD Unavailable Livan Sharif MD Unavailable + IsCatherine boothe MD Unavailable + Sydnie Martinez RN Unavailable Unavailable Alfonso Renteria MD Unavailable Esha Grimm-C Primary Care Provider Cheng Todd PA-C Unavailable Radha Lomeli PRINCIPAL SOFTWARE ARCHITECT SUPPLY CHAIN INTERN Unavailable [phone] Jelena Davide OD Unavailable Pao Joseph RN Unavailable Unavailable Esha Grimm-C Unavailable [phone] Valery Veronica PA-C Unavailable [phone] Rey Tay MD Unavailable Rocky Zepeda DO Unavailable Philip Dumont MD Unavailable [phone] Meredith Carrera PA-C Unavailable [phone] Neil Kent MD Unavailable Juan Pablo Emmanuel MD Unavailable Audrey WaiteC Unavailable [phone] Valery VeronicaC Unavailable Encounter Details Date Type Department Care Team (Late st Contact Info) Description 11/16/2021 MyC Medical Advice [facility] [address] [place] [phone] Diana Desir, [facility] [address] [place] [address] Social History Tobacco Use Types [...] How often do you attend quaker or jehovah's witness serv ices? Never 09/22/2021 [...] in a prison (including now)? No 09/22/2021 [place] Depression Scale Answer Date Recorded [...] PM CDT Legal Sex Female 4:13 AM WHIPPED TOPPING FINISHER Gender Identity Female 03/02/2021 5:45 PM CDT [...] st Contact Info) Description 05/31/2024 8:40 AM WHIPPED TOPPING FINISHER Therapy Visit [facility] Rehabilitation Services [address] [place] [phone] Ingris Thompson, PT [facility] [address] [place] [address] 106 [place] [address] 05/31/2024 3:30 PM WHIPPED TOPPING FINISHER Office Visit [facility] Specialty Clinic [address] [phone] Audrey Díaz, Herminia Koo MD [address] [place] [address] 06/04/2024 3:30 PM WHIPPED TOPPING FINISHER Office Visit [facility] [place] [address] [facility] [address] [place] [phone] Jelena David, [place] [address] [facility] [place] [address] 06/11/2024 10:30 AM WHIPPED TOPPING FINISHER Appointment [facility] Respiratory Therapy [address] [place] [phone] Spec, Nurse Only Med 06/18/2024 2:50 PM WHIPPED TOPPING FINISHER Therapy Visit [facility] Rehabilitation Services [address] [place] [phone] Ingris Thompson, PT [facility] 6 [facility] 106 [place] [address] 06/21/2024 2:00 PM WHIPPED TOPPING FINISHER Office Visit [facility] Neurology Clinics - [place] [address] [place] [address], [address] [place] [phone] [place] [address] [place] [address] Johnny Penn MD 6532 [place] [address] 06/25/2024 8:30 AM WHIPPED TOPPING FINISHER Office Visit [address] [phone] Valery Veronica, PAUcheC [address] [place] [address] 11/28/2024 7:45 AM CDT Virtual Visit [facility] Gastroenterology [address] 4th [place] [phone] Meredith Carrera PA-C 909 [place] [address] documented as of this encounter Visit Diagnoses Not on filedocumented in this encounter Additional Health Concerns Infection Onset Date Last Indicated Resolved Time Rule Out COVID-19 12/18/2021 12/18/2021 12/19/2021 11:34 AM CDT Rule Out COVID-19 02/24/2022 02/24/2022 02/25/2022 1:08 PM CDT Rule Out COVID-19 04/26/2022 04/26/2022 04/26/2022 6:47 AM CDT Rule Out COVID-19 05/17/2022 05/17/2022 05/17/2022 10:20 PM WHIPPED TOPPING FINISHER Rule Out COVID-19 06/09/2022 06/09/2022 06/09/2022 9:35 AM WHIPPED TOPPING FINISHER COVID-19 06/09/2022 06/09/2022 06/30/2022 11:4 1 PM WHIPPED TOPPING FINISHER Rule Out COVID-19 11/10/2022 11/10/2022 11/11/2022 12:17 PM CDT Rule Out COVID-19 03/07/2023 03/07/2023 03/07/2023 1:20 PM CDT Rule Out COVID-19 12/26/2023 12/26/2023 12/26/2023 9:50 AM CDT Rule Out COVID-19 04/09/2024 04/09/2024 04/10/2024 6:48 PM CDT Assessment Noted Time PHQ-9 Depression Total Score: 2 04/02/20 21 10:19 AM CDT documented as of this encounter Care Teams Slot Operations Manager Relationship Specialty Start Date End Date Marija Edgar APRN CNP PCP - General Nurse Practitioner 04/30/20 04/14/23 Esha Grimm PA-C [address] [place] [address] PCP - General Family Medicine 05/04/23 Lita Oseguera Personal Advocate & Liaison (PAL) 02/28/20 03/27/23 Marija Edgar APRN SUPPLY CHAIN INTERN Assigned PCP 06/08/20 04/29/23 Mynor Broussard MD [address] [address] Assigned Surgical Provider 06/01/20 11/28/21 Keisha Dotson MD 909 [place] [address] Assigned Neuroscience Provider 06/04/20 04/01/23 Galo Burrell MD Assigned Heart and Vascular Provider 10/05/20 04/02/22 [facility] [address] [place] [address] Pharmacist Pharmacist 04/17/21 Rain Galaviz PA-C [address] [place] [address] [address] [place] [address] Physician Dip Tanker Dermatology 04/28/21 Summer Lara MD [address], [place] 536914 Assigned OBGYN Provider 05/31/21 9/ 2 Tavia Wyatt MD [address], [place] [address] Dermatology 07/14/21 Johnny Murillo MD [address] [place] [address] Assigned Musculoskeletal Provider 08/30/21 03/17/22 Erica Farrell APRN SUPPLY CHAIN INTERN 6[address] [facility] [address] [place] [address] Nurse Practitioner Cardiovascular Disease 09/09/21 Tavia Wyatt MD Assigned Surgical Provider 11/29/21 05/07/22 Diana Desir [facility] [address] [place] [address] Assigned MTM Pharmacist 01/02/22 Rich Barrett MD 516 [facility] 9[address] [place] [address] Physician Ophthalmology 01/21/22 Neil Kent MD 500 [place] [address] Dermatology 02/24/22 Roney Story DPM [address] [facility] [address] [place] [address] Assigned Musculoskeletal Provider 03/20/22 08/13/22 Erica Farrell APRN SUPPLY CHAIN INTERN 1700 [place] [address] Assigned Heart and Vascular Provider 04/03/22 04/16/22 Diana Desir [facility] 30[address] [place] [address] Assigned MTM Pharmacist 04/07/22 Jelena David OD [address] [place] [address] Assigned Surgical Provider 05/08/22 10/08/22 Galo Burrell MD Assigned Heart and Vascular Provider 04/17/22 06/11/22 Livan Sharif MD [address] [place] [address] [place] [address] Cardiovascular Disease 05/14/22 Livan Sharif MD [address], [place] [address] [place] [id number] Assigned Heart and Vascular Provider 06/12/22 07/23/22 Catherine Cm MD [address] [place] [address] [place] 890[address] Cardiovascular Disease 07/21/22 Valery Veronica, PA-C 909 [place] [address] Physician Dip Tanker Dermatology 07/21/22 Catherine Cm MD [address] [place] [address] [place] 809635 Assigned Heart and Vascular Provider 07/24/22 11/05/22 Johnny Murillo MD [address] [facility] [address] [place] [address] Assigned Musculoskeletal Provider 08/14/22 10/08/22 Brea Quinn APRN SUPPLY CHAIN INTERN 500 [place], [place] 270995 Nurse Practitioner Dermatology 09/21/22 Brea Quinn APRN SUPPLY CHAIN INTERN 6401 [place], [place] 288332 Assigned Surgical Provider 10/09/22 05/01/24 [place] [address] [address] Assigned Musculoskeletal Provider 10/09/22 05/01/24 Livan Sharif MD [address] [facility] [address] [place] [address] Assigned Heart and Vascular Provider 11/06/22 11/12/22 Catherine Cm MD [address] [facility]00 [place] [address] Assigned Heart and Vascular Provider 11/13/22 05/27/23 Sydnie Martinez RN Personal Advocate & Liaison (PAL) Family Medicine 03/28/23 07/31/23 Alfonso Renteria MD 5775 [facility] 200 [place], [place] 481886 Assigned Neuroscience Provider 04/02/23 Cheng Todd PA-C [address] [place] [address] Assigned PCP 04/30/23 07/15/23 Radha Lomeli APRN SUPPLY CHAIN INTERN 6[address] [facility] [address] [place] [address] Assigned Heart and Vascular Provider 05/28/23 Jelena David OD [address] [place] [address] MD Ophthalmology 06/15/23 Pao Joseph, VJ Personal Advocate & Liaison (PAL) Nurse 08/01/23 11/07/23 Esha Grimm PA-C [address] [place] [phone] Assigned PCP 07/16/23 Valery Veronica PA-C [address] [place] [address] 203175 Physician Dip Tanker Dermatology 09/19/23 Rey Tay MD [address] [place] [address] 873905 Gastroenterology 09/20/23 Rocky Zepeda DO [address] [place] [address] 391845 Physician Gastroenterology 09/20/23 Philip Dumont MD [address] [place] [address] 450785 Physician Ophthalmology 09/22/23 Meredith Carrera PA-C [address] [place] [address] 437615 Assigned Gastroenterology Provider 11/01/23 Neil Kent MD [address] [place] [address] Dermatology 11/02/23 [place] [address] [place], [place] [address] Neurological Surgery 12/26/23 Audrey Waite PA-C 500 [place] [address] Physician Dip Tanker Dermatology 02/28/24 Valery Veronica PA-C 7[address]301 [address], [place] [address] Physician Dip Tanker Dermatology 04/10/24 documented as of this encounter
--- OUTSIDE RECORDS SUMMARY | 2024-05-27 08:51 | XMS_ITS | Encounter Summary ---
Author Organization [facility] Address [address] [place] [address] Care Team Providers Care Pleat Patternmaker Name Role Phone Lita Oseguera Unavailable Unavailable Marija Edgar APRN STRIP PICKER Primary Care Provider + Marija Edgar APRN STRIP PICKER Unavailable [phone] Keisha Dotson MD Unavailable [phone] Diana Desir [facility] Unavailable +[phone] Rain Galaviz PA-C Unavailable Tavia Wyatt MD Unavailable Unavailable Erica Farrell APRN STRIP PICKER Unavailable Tavia Wyatt MD Unavailable Unavailable Rich Barrett MD Unavailable [phone] Neil Kent MD Unavailable Roney StoryM Unavailable [phone] Erica Farrell APRN STRIP PICKER Unavailable Diana Desir [facility] Unavailable +[phone] Jelena David OD Unavailable Galo Burrell MD Unavailable Unavailable Livan Sharif MD Unavailable Livan Sharif MD Unavailable + IsmaelCatherine boothe MD Unavailable + Valery Veronica PA-C Unavailable [phone] Catherine Cm MD Unavailable + Johnny Murillo MD Unavailable [phone] Brea Quinn MARKETING RESEARCHER STRIP PICKER Unavailable [phone] Brea Quinn MARKETING RESEARCHER STRIP PICKER Unavailable [phone] Jose Francisco Johnson MD Unavailable Livan Sharif MD Unavailable fabyCatherine MD Unavailable + Sydnie Martinez RN Unavailable Unavailable Alfonso Renteria MD Unavailable [phone] Esha Grimm PA-C Primary Care Provider Cheng Todd PA-C Unavailable Radha Lomeli APRN STRIP PICKER Unavailable [phone] Jelena David OD Unavailable Pao Joseph RN Unavailable Unavailable Esha Grimm PA-C Unavailable [phone] Valery Veronica PA-C Unavailable [phone] Rey Tay MD Unavailable Rocky Zepeda DO Unavailable Philip Dumont MD Unavailable [phone] Meredith Carrera PA-C Unavailable Neil Kent MD Unavailable Juan Pablo Emmanuel MD Unavailable Audrey Waite PA-C Unavailable Valery Veronica PA-C Unavailable Encounter Details Date Type Department Care Team (Late st Contact Info) Description 04/07/2022 MyC Medical Advice [address] [address] Thang Diana T, [facility] [address] [place] [address] Social History Tobacco Use Types Packs/Day Years [...] How often do you attend confucianist or restorationism serv ices? Never 09/22/2021 Do [...] Answer Date Recorded PHQ-2 Score 2 12/18/2021 [facility] [place] of Occupat ional Health - Occupational Stress [...] in a jail (including now)? No 09/22/2021 [place] Depression Scale Answer Date Recorded [place] Depression Score 5 01/14/2021 Last EPDS Self Harm Result Not on file 01/14 Education Answer Date Recorded What is the highest level of school you have completed or the highest degree you have received? 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 SLITTER SCORER CUT OFF OPERATOR Gender Identity Female 03/02/2021 5:45 PM [...] st Contact Info) Description 05/31/2024 8:40 AM SLITTER SCORER CUT OFF OPERATOR Therapy Visit [facility] [address] [place] [phone] Ingris Thompson, PT [facility] [address] [place] [place] [address] [address] [place], [place] [address]115 05/31/2024 3:30 PM SLITTER SCORER CUT OFF OPERATOR Office Visit [address] [phone] Audrey Díaz, Herminia Koo MD [address] [place] [address] 06/04/2024 3:30 PM SLITTER SCORER CUT OFF OPERATOR Office Visit [address] [place] [phone] Jelena David, SONJA [address] [place] [address] [place] [address] 06/11/2024 10:30 AM SLITTER SCORER CUT OFF OPERATOR Appointment [facility] Respiratory Therapy [address] [place] [address] Spec, Nurse Only Med 06/18/2024 2:50 PM SLITTER SCORER CUT OFF OPERATOR Therapy Visit [facility] [place] [address] [facility] [address] [place] [phone] Ingris Thompson, PT [facility] [address] [facility] [address] [place], [place] 6[address]755 06/21/2024 2:00 PM SLITTER SCORER CUT OFF OPERATOR Office Visit [facility] [place] [address] [facility], [address] [place] [phone] [place] [address] [place], [place] 303637 Johnny Penn MD 7193 [place], [place] 7[address]805 06/25/2024 8:30 AM SLITTER SCORER CUT OFF OPERATOR Office Visit [address] [address] Valery Veronica PA-C [address] [place] [address] 030855 11/28/2024 7:45 AM CDT Virtual Visit [facility] [address] 4th [place] [phone] Meredith Carrera PA-C [address] [place] [address] [phone] documented as of this encounter Visit Diagnoses Not on filedocumented in this encounter Additional Health Concerns Infection Onset Date Last Indicated Resolved Time Rule Out COVID-19 04/26/2022 04/26/202204/2604/26/2022 6:47 AM CDT Rule Out COVID-19 05/17/2022 05/17/2022 05/17/2022 10:20 PM SLITTER SCORER CUT OFF OPERATOR Rule Out COVID-19 06/09/2022 06/09/2022 06/09/2022 9:35 AM SLITTER SCORER CUT OFF OPERATOR COVID-19 06/09/2022 06/09/2022 06/30/2022 11:4 1 PM SLITTER SCORER CUT OFF OPERATOR Rule Out COVID-19 11/10/2022 11/10/2022 11/11/2022 12:17 PM CDT Rule Out COVID-19 03/07/2023 03/07/2023 03/07/2023 1:20 PM CDT Rule Out COVID-19 12/26/2023 12/26/2023 12/26/2023 9:50 AM CDT Rule Out COVID-19 04/09/2024 04/09/2024 04/10/2024 6:48 PM CDT Assessment Noted Time PHQ-9 Depression Total Score: 2 12/19/19 22 2:50 PM CDT documented as of this encounter Care Teams Pleat Patternmaker Relationship Specialty Start Date End Date Marija Edgar APRN STRIP PICKER PCP - General Nurse Practitioner 04/30/20 04/14/23 Esha Grimm PA-C [address] [place] [phone] PCP - General Family Medicine 05/04/23 Lita Oseguera Personal Advocate & Liaison (PAL) 02/28/20 03/27/23 Marija Edgar APRN STRIP PICKER Assigned PCP 06/08/20 04/29/23 Keisah Dotson MD 909 [place] [address] Assigned Neuroscience Provider 06/04/20 04/01/23 Diana Desir, [facility] [address] [place] [address] Pharmacist Pharmacist 04/17/21 Rain Galaviz PA-C [address] [place] [address] [address] [place] [address] Physician Housing Officer Dermatology 04/28/21 Tavia Wyatt MD [address] [place] [address] [place] [address] Dermatology 07/14/21 Erica Farrell APRN STRIP PICKER [address] [phone] [place] [address] Nurse Practitioner Cardiovascular Disease 09/09/21 Tavia Wyatt MD Assigned Surgical Provider 11/29/21 05/07/22 Rich Barrett MD [address] [facility] [address] [place], [place] 05[address] Physician Ophthalmology 01/21/22 Neil Kent MD 500 [place], [place] 884065 Dermatology 02/24/22 Roney Story DPM [address] [facility] [address] [place], [place] 156667 Assigned Musculoskeletal Provider 03/20/22 08/13/22 Erica Farrell APRN STRIP PICKER 1700 [place], [place] [phone] Assigned Heart and Vascular Provider 04/03/22 04/16/22 Diana Desir [facility] [address] [place] [address] Assigned MTM Pharmacist 04/07/22 Jelena David OD [address] [facility] [place] [address] Assigned Surgical Provider 05/08/22 10/08/22 Galo Burrell MD Assigned Heart and Vascular Provider 04/17/22 06/11/22 Livan Sharif MD [address] [place] 642295 Cardiovascular Disease 05/14/22 Livan Sharif MD [address] [place] [address]035 Assigned Heart and Vascular Provider 06/12/22 07/23/22 Catherine Cm MD [address] [place] 0[address]135 Cardiovascular Disease 07/21/22 Valery Veronica PA-C [address]09 [place] [address] Physician Housing Officer Dermatology 07/21/22 Catherine Cm MD [address] [place] [address] Assigned Heart and Vascular Provider 07/24/22 11/05/22 Johnny Murillo MD [address] [facility] [address] [place] [address] Assigned Musculoskeletal Provider 08/14/22 10/08/22 Brea Quinn APRN STRIP PICKER 500 [place], [place] 203675 Nurse Practitioner Dermatology 09/21/22 Brea Quinn APRN STRIP PICKER 64[address] [place], [place] 819702 Assigned Surgical Provider 10/09/22 05/01/24 [place] [address] [address] Assigned Musculoskeletal Provider 10/09/22 05/01/24 Livan Sharif MD [address], [facility] [address] [place] [address] Assigned Heart and Vascular Provider 11/06/22 11/12/22 Catherine Cm MD [address] [facility]00 [place] [address] Assigned Heart and Vascular Provider 11/13/22 05/27/23 Sydnie Martinez RN Personal Advocate & Liaison (PAL) Family Medicine 03/28/23 07/31/23 Alfonso Renteria MD [address] [facility] 200 [place], [place] 049116 Assigned Neuroscience Provider 04/02/23 Cheng Todd PA-C [address] [place] [address] Assigned PCP 04/30/23 07/15/23 Radha Lomeli APRN STRIP PICKER [address] [facility] [address] [place] [address] Assigned Heart and Vascular Provider 05/28/23 Jelena David OD [address] [facility] [place] [address] MD Ophthalmology 06/15/23 Pao Joseph, VJ Personal Advocate & Liaison (PAL) Nurse 08/01/23 11/07/23 Esha Grimm PA-C [address] [place] [phone] Assigned PCP 07/16/23 Valery Veronica PA-C [address] [place] [address] Physician Housing Officer Dermatology 09/19/23 Rey Tay MD [address] [place] [address] 287565 Gastroenterology 09/20/23 Rocky Zepeda DO [address] [place] [address] 315145 Physician Gastroenterology 09/20/23 Philip Dumont MD [address] [place] [address] 451085 Physician Ophthalmology 09/22/23 Meredith Carrera PA-C 909 [place] [address] Assigned Gastroenterology Provider 11/01/23 Neil Kent MD [address] 613870 Dermatology 11/02/23 [place] [address] [place] [address] 589907 Neurological Surgery 12/26/23 Audrey Waite PA-C 500 [place], [place] 856[address] Physician Housing Officer Dermatology 02/28/24 Valery Veronica PA-C [address] [place] [address] Physician Housing Officer Dermatology 04/10/24 documented as of this encounter
--- OUTSIDE RECORDS SUMMARY | 2024-05-27 08:51 | XMS_ITS | Encounter Summary ---
Author Organization [facility] Address [address] [place] [address] Care Team Providers Care Operations Team Leader Name Role Phone Lita Oseguera Unavailable Unavailable Marija Edgar APRN TELEPHONE INTERVIEWER Primary Care Provider + Marija Edgar APRN TELEPHONE INTERVIEWER Unavailable [phone] Keisha Dotson MD Unavailable [phone] Galo Burrell MD Unavailable Unavailable Diana Desir [facility] Unavailable [phone] Rain Galaviz PA-C Unavailable Summer Lara MD Unavailable [phone] Tavia Wyatt MD Unavailable Unavailable Johnny Murillo MD Unavailable Erica Farrell APRN TELEPHONE INTERVIEWER Unavailable Tavia Wyatt MD Unavailable Unavailable Diana Desir [facility] Unavailable [phone] Rich Barrett MD Unavailable [phone] Neil Kent MD Unavailable Roney StoryM Unavailable [phone] Erica Farrell APRN TELEPHONE INTERVIEWER Unavailable Diana Desir [facility] Unavailable FrankieJelenae OD Unavailable Galo Burrell MD Unavailable Unavailable Livan Sharif MD Unavailable Livan Sharif MD Unavailable IsCatherine hobbs MD Unavailable + Valery Veronica PA-C Unavailable [phone] IsCatherine hobbs MD Unavailable + Johnny Murillo MD Unavailable [phone] Brea Quinn ADJUSTER LEADER TELEPHONE INTERVIEWER Unavailable [phone] Brea Quinn ADJUSTER LEADER TELEPHONE INTERVIEWER Unavailable [phone] Jose Francisco Johnson MD Unavailable Livan Sharif MD Unavailable + IsraynaCatherine boothe MD Unavailable + Sydnie Martinez RN Unavailable Unavailable Alfonso Renteria MD Unavailable Esha Grimm PA-C Primary Care Provider Cheng Todd PA-C Unavailable Radha Lomeli ADJUSTER LEADER TELEPHONE INTERVIEWER Unavailable [phone] Jelena David OD Unavailable [phone] Pao Joseph RN Unavailable Unavailable Esha Grimm PA-C Unavailable [phone] Valery Veronica PA-C Unavailable [phone] Rey Tay MD Unavailable Rocky Zepeda DO Unavailable Philip Dumont MD Unavailable [phone] Meredith Carrera PA-C Unavailable [phone] Neil Kent MD Unavailable Juan Pablo Emmanuel MD Unavailable Audrey Waite PA-C Unavailable [phone] Valery Veronica PA-C Unavailable [phone] Encounter Details Date Type Department Care Team (Late st Contact Info) Description 12/18/2021 Telephone [facility] [address] [place] [address] Lauren Claudio PA-C [address] [place] [address] Social History Tobacco Use Types [...] How often do you attend protestant or moravian serv ices? Never 09/22/2021 Do [...] Answer Date Recorded PHQ-2 Score 2 12/18/2021 [facility] of Occupat ional [...] a senior care (including now)? No 09/22/2021 [place] Depression Scale Answer Date Recorded [place] Depression Score 5 01/14/2021 Last EPDS Self Harm Result Not on file 01/14 Education Answer Date Recorded What is the highest level of school you have completed or the highest degree you have received? 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 HAT FINISHER Gender Identity Female 03/02/2021 5:45 PM [...] be reached at: Home number on file [phone] (home) Best Time: ANYTIME Can we leave a detailed message on this number? YES Call taken on 12/18/2021 at 11:01 AM by Amalia Deluca documented in this encounter Plan of Treatment Upcoming Encounters Date Type Department Care Team (Late st Contact Info) Description 05/31/2024 8:40 AM HAT FINISHER Therapy Visit [place] [phone] Ingris Thompson, PT [facility] [address] [place] [address] 05/31/2024 3:30 PM HAT FINISHER Office Visit [place] 925505 [place] [address] Audrey Díaz, Herminia Koo MD [facility]5 [place] [address] 06/04/2024 3:30 PM HAT FINISHER Office Visit [place] 6[address]75 [facility] [address] [place] [address] Jelena David, [address] [place] [address] [place] [address] 06/11/2024 10:30 AM HAT FINISHER Appointment [facility] Respiratory Therapy [address] [place] [address] Spec, Nurse Only Med 06/18/2024 2:50 PM HAT FINISHER Therapy Visit [facility] [place] [address] [place] [address] 160 [place] [address] Ingris Thompson, PT [facility] [address] [place] [address] 06/21/2024 2:00 PM HAT FINISHER Office Visit [facility]rology [facility] - [place] [address] [place] [address], [address] [place] [address] [place] [address] [place] [id number] Johnny Penn MD [address] [place] [address] 06/25/2024 8:30 AM HAT FINISHER Office Visit [address] [phone] Valery Veronica PA-C [address] [place] [address] 11/28/2024 7:45 AM CDT Virtual Visit [facility] Gastro[facility]ology Clinic [address] 4th [place] [phone] Meredith Carrera, ROVERTO [address] [place] [address] documented as of this encounter Visit Diagnoses Not on filedocumented in this encounter Additional Health Concerns Infection Onset Date Last Indicated Resolved Time Rule Out COVID-19 12/18/2021 12/18/2021 12/19/2021 11:34 AM CDT Rule Out COVID-19 02/24/2022 02/24/2022 02/25/2022 1:08 PM CDT Rule Out COVID-19 04/26/2022 04/26/2022 04/26/2022 6:47 AM CDT Rule Out COVID-19 05/17/2022 05/17/2022 05/17/2022 10:20 PM HAT FINISHER Rule Out COVID-19 06/09/2022 06/09/2022 06/09/2022 9:35 AM HAT FINISHER COVID-19 06/09/2022 06/09/2022 06/30/2022 11:4 1 PM HAT FINISHER Rule Out COVID-19 11/10/2022 11/10/2022 11/11/2022 12:17 PM CDT Rule Out COVID-19 03/07/2023 03/07/2023 03/07/2023 1:20 PM CDT Rule Out COVID-19 12/26/2023 12/26/2023 12/26/2023 9:50 AM CDT Rule Out COVID-19 04/09/2024 04/09/2024 04/10/2024 6:48 PM CDT Assessment Noted Time PHQ-9 Depression Total Score: 2 12/19/19 2:50 PM CDT documented as of this encounter Care Teams Operations Team Leader Relationship Specialty Start Date End Date Marija Edgar APRN TELEPHONE INTERVIEWER PCP - General Nurse Practitioner 04/30/20 04/14/23 Esha Grimm PA-C [address] [place] [phone] PCP - General Family Medicine 05/04/23 Lita Oseguera Personal Advocate & Liaison (PAL) 02/28/20 03/27/23 Marija Edgar APRN TELEPHONE INTERVIEWER Assigned PCP 06/08/20 04/29/23 Keisha Dotson MD 909 [place], [place] 135045 Assigned Neuroscience Provider 06/04/20 04/01/23 Galo Burrell MD Assigned Heart and Vascular Provider 10/05/20 04/02/22 [facility] 3033 [place] [address] Pharmacist Pharmacist 04/17/21 Rain Galaviz PA-C [address] [place] [address] [place] [address] Physician Senior Communications Engineer Dermatology 04/28/21 Summer Lara MD [address] [place] [address] Assigned OBGYN Provider 05/31/21 Tavia Wyatt MD [address] [place] [address] Dermatology 07/14/21 Johnny Murillo MD [address] [place] [address] Assigned Musculoskeletal Provider 08/30/21 03/17/22 Erica Farrell APRN TELEPHONE INTERVIEWER 6[address] [facility] [address] [place] [address] Nurse Practitioner Cardiovascular Disease 09/09/21 Tavia Wyatt MD Assigned Surgical Provider 11/29/21 05/07/22 [facility] [address] [place] [address] Assigned MTM Pharmacist 01/02/22 Rich Barrett MD [address] [facility] 9A [place], [place] [address] Physician Ophthalmology 01/21/22 Neil Kent MD 500 [place], [place] 718245 Dermatology 02/24/22 Roney Story DPM [address] [facility] [address] [place] [address] Assigned Musculoskeletal Provider 03/20/22 08/13/22 Erica Farrell APRN TELEPHONE INTERVIEWER 1700 [place] [address] Assigned Heart and Vascular Provider 04/03/22 04/16/22 Diana Desir, [facility] [address] [place] [address] Assigned MTM Pharmacist 04/07/22 Jelena David OD [address] [facility] [place] [address] Assigned Surgical Provider 05/08/22 10/08/22 Galo Burrell MD Assigned Heart and Vascular Provider 04/17/22 06/11/22 Livan Sharif MD [address] [place] [address] Cardiovascular Disease 05/14/22 Livan Sharif MD [address] [place] [address] Assigned Heart and Vascular Provider 06/12/22 07/23/22 Catherine Cm MD [address] [place] 74[address] Cardiovascular Disease 07/21/22 Valery Veronica PA-C 909 [place] [address] Physician Senior Communications Engineer Dermatology 07/21/22 Catherine Cm MD [address] [facility] [facility] [address] [place] [address] Assigned Heart and Vascular Provider 07/24/22 11/05/22 Johnny Murillo MD [address] [place] [address] Assigned Musculoskeletal Provider 08/14/22 10/08/22 Brea Quinn APRN TELEPHONE INTERVIEWER 500 [place], [place] 765665 Nurse Practitioner Dermatology 09/21/22 Brea Quinn APRN TELEPHONE INTERVIEWER 6401 [facility] [place] [address] Assigned Surgical Provider 10/09/22 05/01/24 [place] [address] 403037 Assigned Musculoskeletal Provider 10/09/22 05/01/24 Livan Sharif MD 6405 [facility], [facility] [address] [place] [address] Assigned Heart and Vascular Provider 11/06/22 11/12/22 Catherine Cm MD 6[address] [facility] [address] [place] [address]135 Assigned Heart and Vascular Provider 11/13/22 05/27/23 Sydnie Martinez RN Personal Advocate & Liaison (PAL) Family Medicine 03/28/23 07/31/23 Alfonso Renteria MD 5775 [facility] [address] 200 [place] [address] Assigned Neuroscience Provider 04/02/23 Cheng Todd PA-C [address] [place] [address] Assigned PCP 04/30/23 07/15/23 Radha Lomeli APRN TELEPHONE INTERVIEWER 6405 [facility] [address] [place] [address] Assigned Heart and Vascular Provider 05/28/23 Jelena David OD [address] [facility] [place] [address] Ophthalmology 06/15/23 Pao Joseph, VJ Personal Advocate & Liaison (PAL) Nurse 08/01/23 11/07/23 Esha Grimm PA-C [address] [place] [address] Assigned PCP 07/16/23 Valery Veronica PA-C [address] [place] [address] Physician Senior Communications Engineer Dermatology 09/19/23 Rey Tay MD [address] [place] [address] 440695 Gastroenterology 09/20/23 Rocky Zepeda DO [address] [place] [address] Physician Gastroenterology 09/20/23 Philip Dumont MD 516 [place] [address] Physician Ophthalmology 09/22/23 Meredith Carrera PA-C [address] [place] [address] Assigned Gastroenterology Provider 11/01/23 Neil Kent MD [address] [place] [address] Dermatology 11/02/23 [place] [address] [address] Neurological Surgery 12/26/23 Audrey Waite PA-C [address] [place] [address] Physician Senior Communications Engineer Dermatology 02/28/24 Valery Veronica PA-C 672914 [place], [place] [address] Physician Senior Communications Engineer Dermatology 04/10/24 documented as of this encounter
--- OUTSIDE RECORDS SUMMARY | 2024-05-27 08:51 | XMS_ITS | Encounter Summary ---
Author Organization [facility] Address [address] [place] [address] Care Team Providers Care Die Fitter Name Role Phone Lita Oseguera Unavailable Unavailable Marija Edgar APRN PROCESS SERVER Primary Care Provider + Marija Edgar APRN PROCESS SERVER Unavailable [phone] Keisha Dotson MD Unavailable [phone] Galo Burrell MD Unavailable Unavailable Diana Desir [facility] Unavailable [phone] Rain Galaviz PA-C Unavailable Summer Lara MD Unavailable [phone] Tavia Wyatt MD Unavailable Unavailable Johnny Murillo MD Unavailable Erica Farrell APRN PROCESS SERVER Unavailable Tavia Wyatt MD Unavailable Unavailable Diana eDsir [facility] Unavailable [phone] Rich Barrett MD Unavailable [phone] Neil [place] MD Unavailable Roney StoryM Unavailable [phone] Erica Farrell APRN PROCESS SERVER Unavailable Diana Desir [facility] Unavailable FrankieJelenae OD Unavailable Galo Burrell MD Unavailable Unavailable Livan Sharif MD Unavailable Livan Sharif MD Unavailable IsCatherine hobbs MD Unavailable + Valery Veronica PA-C Unavailable [phone] IsCatherine hobbs MD Unavailable + Johnny Murillo MD Unavailable [phone] Brea Quinn GENERAL UTILITY MAINTENANCE REPAIRER PROCESS SERVER Unavailable [phone] Brea Quinn GENERAL UTILITY MAINTENANCE REPAIRER PROCESS SERVER Unavailable [phone] Jose Francisco Johnson MD Unavailable Livan Sharif MD Unavailable + IsraynaCatherine boothe MD Unavailable + Sydnie Martinez RN Unavailable Unavailable Alfonso Renteria MD Unavailable Esha Grimm PA-C Primary Care Provider Cheng Todd PA-C Unavailable Radha Lomeli GENERAL UTILITY MAINTENANCE REPAIRER PROCESS SERVER Unavailable [phone] Jelena David OD Unavailable Pao Joseph RN Unavailable Unavailable Esha Grimm PA-C Unavailable [phone] Valery Veronica PA-C Unavailable [phone] Rey Tay MD Unavailable Rocky Zepeda DO Unavailable Philip Dumont MD Unavailable [phone] Meredith Carrera PA-C Unavailable [phone] Neil [place] MD Unavailable Juan Pablo Emmanuel MD Unavailable [phone] Audrey Waite PA-C Unavailable Valery Veronica PA-C Unavailable [phone] Encounter Details Date Type Department Care Team (Late st Contact Info) Description 01/22/2022 MyC Medical Advice [address] [address] Diana Desir, [facility] [address] [place] [address] Social History Tobacco Use Types [...] How often do you attend scientology or taoist serv ices? Never 09/22/2021 Do [...] Answer Date Recorded PHQ-2 Score 2 12/18/2021 [facility] - Occupational Stress Questionnaire Answer [...] in a penitentiary (including now)? No 09/22/2021 [place] Depression Scale Answer Date Recorded [...] PM CDT Legal Sex Female 4:13 AM BRAND DEVELOPMENT MANAGER Gender Identity Female 03/02/2021 5:45 PM [...] st Contact Info) Description 05/31/2024 8:40 AM BRAND DEVELOPMENT MANAGER Therapy Visit [facility] [address] [place] [phone] Ingris Thompson, PT [facility] [address] [place] [address] 05/31/2024 3:30 PM BRAND DEVELOPMENT MANAGER Office Visit [facility] [address] [phone] Audrey Díaz PA-C Khan, Waseem, MD [address] [place] [address] 06/04/2024 3:30 PM BRAND DEVELOPMENT MANAGER Office Visit [address] [place] [address] Jelena David, OD [address] [facility] [place] [address] 06/11/2024 10:30 AM BRAND DEVELOPMENT MANAGER Appointment [facility] Res[facility] Therapy [address] [place] [phone] Spec, Nurse Only Med 06/18/2024 2:50 PM BRAND DEVELOPMENT MANAGER Therapy Visit [facility] [place] [address] [place] [address] [address] [place] [phone] Ingris Thompson, PT [facility] 6 [facility] [address] [place], [place] 6[address]25 06/21/2024 2:00 PM BRAND DEVELOPMENT MANAGER Office Visit [facility] [place] [address] [place] [address] [address] [place] [phone] [place] [address] [place], [place] 253587 Johnny Penn MD 8161 [place], [place] 955785 06/25/2024 8:30 AM BRAND DEVELOPMENT MANAGER Office Visit [address] [address] Valery Veronica PAUcheC [address] [place] [address] 705765 11/28/2024 7:45 AM CDT Virtual Visit [facility] [address] 4th [place] [phone] Meredith Carrera, PAUcheC [address] [place] [address] documented as of this encounter Visit Diagnoses Not on filedocumented in this encounter Additional Health Concerns Infection Onset Date Last Indicated Resolved Time Rule Out COVID-19 02/24/2022 02/24/2022 02/25/2022 1:08 PM CDT Rule Out COVID-19 04/26/2022 04/26/2022 04/26/2022 6:47 AM CDT Rule Out COVID-19 05/17/2022 05/17/2022 05/17/2022 10:20 PM BRAND DEVELOPMENT MANAGER Rule Out COVID-19 06/09/2022 06/09/2022 06/09/2022 9:35 AM BRAND DEVELOPMENT MANAGER COVID-19 06/09/2022 06/09/2022 06/30/2022 11:4 1 PM BRAND DEVELOPMENT MANAGER Rule Out COVID-19 11/10/2022 11/10/2022 11/11/2022 12:17 PM CDT Rule Out COVID-19 03/07/2023 03/07/2023 03/07/2023 1:20 PM CDT Rule Out COVID-19 12/26/2023 12/26/2023 12/26/2023 9:50 AM CDT Rule Out COVID-19 04/09/2024 04/09/2024 04/10/2024 6:48 PM CDT Assessment Noted Time PHQ-9 Depression Total Score: 2 12/19/19 22 2:50 PM CDT documented as of this encounter Care Teams Die Fitter Relationship Specialty Start Date End Date Marija Edgar APRN CNP PCP - General Nurse Practitioner 04/30/20 04/14/23 Esha Grimm PA-C [address] [place] [phone] PCP - General Family Medicine 05/04/23 Lita Oseguera Personal Advocate & Liaison (PAL) 02/28/20 03/27/23 Marija Edgar APRN PROCESS SERVER Assigned PCP 06/08/20 04/29/23 Keisha Dotson MD 909 [place] [address] Assigned Neuroscience Provider 06/04/20 04/01/23 Galo Burrell MD Assigned Heart and Vascular Provider 10/05/20 04/02/22 [facility] [address] [place] [address] Pharmacist Pharmacist 04/17/21 Rain Galaviz PA-C [address] [place] [address] [place] [address] Physician Airport Clerk Dermatology 04/28/21 Summer Lara MD [address] [place], [place] [address] [address] Assigned OBGYN Provider 05/31/21 2 Tavia Wyatt MD [address] [place] [address] Dermatology 07/14/21 Johnny Murillo MD [address] [place] [address] Assigned Musculoskeletal Provider 08/30/21 03/17/22 Erica Farrell APRN PROCESS SERVER [address] [facility] [address] [place] [address] Nurse Practitioner Cardiovascular Disease 09/09/21 Tavia Wyatt MD Assigned Surgical Provider 11/29/21 05/07/22 Diana Desir, [facility] [address] [place] [address] Assigned MTM Pharmacist 01/02/22 Rich Barrett MD [address] [place] [address] 713835 Physician Ophthalmology 01/21/22 Neil [place] MD [address] [place] [address] Dermatology 02/24/22 Rnoey Story DPM [address] [facility] [address] [place] [address] Assigned Musculoskeletal Provider 03/20/22 08/13/22 Erica Farrell APRN CNP [facility] [place] [address] Assigned Heart and Vascular Provider 04/03/22 04/16/22 Diana Desir, [facility] [address] [place] [address] Assigned MTM Pharmacist 04/07/22 Jelena David OD [address] [facility] [place] [address] Assigned Surgical Provider 05/08/22 10/08/22 Galo Burrell MD Assigned Heart and Vascular Provider 04/17/22 06/11/22 Livan Sharif MD [address], [facility] [address] [place] 626525 Cardiovascular Disease 05/14/22 Livan Sharif MD [address], [facility] [address] [place] 684575 Assigned Heart and Vascular Provider 06/12/22 07/23/22 Catherine Cm MD [address] [facility] [address] [place] 329795 Cardiovascular Disease 07/21/22 Valery Veronica, PA-C [address] [place] [address] 120535 Physician Airport Clerk Dermatology 07/21/22 Catherine Cm MD [address] [facility] [address] [place] 027715 Assigned Heart and Vascular Provider 07/24/22 11/05/22 Johnny Murillo MD [address] [place] [address] 060374 Assigned Musculoskeletal Provider 08/14/22 10/08/22 Brea Quinn APRN PROCESS SERVER [address] [place] [address] [phone] Nurse Practitioner Dermatology 09/21/22 Brea Quinn APRN PROCESS SERVER [address] [place] [address] [place] [id number] Assigned Surgical Provider 10/09/22 05/01/24 [place] [address] [place] [address] Assigned Musculoskeletal Provider 10/09/22 05/01/24 Livan Sharif MD [address] [facility] [address] [place] [address] Assigned Heart and Vascular Provider 11/06/22 11/12/22 Catherine Cm MD [address] [facility]00 [place] [address] Assigned Heart and Vascular Provider 11/13/22 05/27/23 Sydnie Martinez RN Personal Advocate & Liaison (PAL) Family Medicine 03/28/23 07/31/23 Alfonso Renteria MD 5775 [facility] 200 [place] [address] Assigned Neuroscience Provider 04/02/23 Cheng Todd PA-C [address] [place] [address] [id number] Assigned PCP 04/30/23 07/15/23 Radha Lomeli APRN PROCESS SERVER [address] 00 [place] 516725 Assigned Heart and Vascular Provider 05/28/23 Jelena David OD [address] [facility] [place] [address] MD Ophthalmology 06/15/23 Pao Joseph, RN Personal Advocate & Liaison (PAL) Nurse 08/01/23 11/07/23 Esha Grimm PA-C [address] [place] [address]18[address]83 Assigned PCP 07/16/23 Valery Veronica PA-C [address] [place] [address] Physician Airport Clerk Dermatology 09/19/23 Rey Tay MD [address] [place] [address] 165045 Gastroenterology 09/20/23 Rocky Zepeda DO [address] [place] [place] [address] 144615 Physician Gastroenterology 09/20/23 Philip Dumont MD [address] [place] [address] 839045 Physician Ophthalmology 09/22/23 Meredith Carrera PA-C [address] [place] [address] 098645 Assigned Gastroenterology Provider 11/01/23 Neil Kent MD [address] 965730 Dermatology 11/02/23 [place] [address] [place] [address] Neurological Surgery 12/26/23 Audrey Waite PA-C 500 [place] [address] Physician Airport Clerk Dermatology 02/28/24 Valery Veronica PA-C [address] [place] [address] Physician Airport Clerk Dermatology 04/10/24 documented as of this encounter
--- OUTSIDE RECORDS SUMMARY | 2024-05-27 08:51 | XMS_ITS | Encounter Summary ---
Author Organization [facility] Address [address] [place] [address] Care Team Providers Care Sign Letterer Name Role Phone Lita Oseguera Unavailable Unavailable Marija Edgar APRN CARRIER DRIVER Primary Care Provider + Marija Edgar APRN CARRIER DRIVER Unavailable [phone] Keisha Dotson MD Unavailable [phone] Diana Desir [facility] Unavailable [phone] Rain Galaviz PA-C Unavailable [phone] Tavia Wyatt MD Unavailable Unavailable Erica Farrell APRN CARRIER DRIVER Unavailable Rich Barrett MD Unavailable [phone] Neil Kent MD Unavailable Roney Story DPM Unavailable [phone] Diana Desir [facility] Unavailable [phone] Jelena David OD Unavailable Galo Burrell MD Unavailable Unavailable Livan Sharif MD Unavailable Livan Sharif MD Unavailable Catherine Cm MD Unavailable + Valery Veronica PA-C Unavailable Catherine Cm MD Unavailable + Johnny Murillo MD Unavailable [phone] Brea Quinn COFFEE GROWER CARRIER DRIVER Unavailable [phone] Brea Quinn COFFEE GROWER CARRIER DRIVER Unavailable [phone] Jose Francisco Johnson MD Unavailable Livan Sharif MD Unavailable Catherine Cm MD Unavailable + Sydnie Martinez RN Unavailable Unavailable Alfonso Renteria MD Unavailable Esha Grimm PA-C Primary Care Provider Cheng Todd PA-C Unavailable Radha Lomeli COFFEE GROWER CARRIER DRIVER Unavailable Jelena David OD Unavailable Pao Joseph RN Unavailable Unavailable Esha Grimm PA-C Unavailable [phone] Valery Veronica PA-C Unavailable [phone] Rey Tay MD Unavailable Rocky Zepeda DO Unavailable Philip Dumont MD Unavailable [phone] Meredith Carrera PA-C Unavailable Neil Kent MD Unavailable Juan Pablo Emmanuel MD Unavailable Audrey Waite PA-C Unavailable [phone] Valery Veronica PA-C Unavailable Encounter Details Date Type Department Care Team (Late st Contact Info) Description 05/11/2022 MyC Medical Advice [address] [address] Diana Desir, [facility] [address] [place] [address] Social History Tobacco Use Types Packs/Day Years [...] often do you attend temple or jainism serv ices? Never 09/22/2021 Do [...] PHQ-9 if positive 1 05/13/2022 [facility] - [...] in a detention (including now)? No 09/22/2021 [place] Depression Scale [...] PM CDT Legal Sex Female 4:13 AM CIRCLE SHEAR OPERATOR Gender Identity Female 03/02/2021 5:45 PM [...] st Contact Info) Description 05/31/2024 8:40 AM CIRCLE SHEAR OPERATOR Therapy Visit [facility] [address] [place] [phone] Ingris Thompson, PT [facility] [address] [place] [address] [address] [place], [place] 991585 05/31/2024 3:30 PM CIRCLE SHEAR OPERATOR Office Visit [facility] Specialty [address] [phone] Audrey Díaz, Herminia Koo MD [address] [place] [address] 06/04/2024 3:30 PM CIRCLE SHEAR OPERATOR Office Visit [address] [place] [phone] Jelena David, [address] [place] [address] 06/11/2024 10:30 AM CIRCLE SHEAR OPERATOR Appointment [facility] Respiratory Therapy [address] [place] [address] Spec, Nurse Only Med 06/18/2024 2:50 PM CIRCLE SHEAR OPERATOR Therapy Visit [facility] [address] [place] [phone] Ingris Thompson, PT [facility] [address] [facility] [address] [place], [place] 291285 06/21/2024 2:00 PM CIRCLE SHEAR OPERATOR Office Visit [facility]rology Clin[facility] - [facility] [address] [facility], [address] [place] [phone] [place] [address] [place], [place] 357777 Johnny Penn MD 3197 [place], [place] 878605 06/25/2024 8:30 AM CIRCLE SHEAR OPERATOR Office Visit [address] [phone] Valery Veronica PA-C [address] [place] [address] 784245 11/28/2024 7:45 AM CDT Virtual Visit [facility] Gastroenterology Clinic [address] 4th [place] [phone] Meredith Carrera PA-C [address] [place] [address] 624465 documented as of this encounter Visit Diagnoses Not on filedocumented in this encounter Additional Health Concerns Infection Onset Date Last Indicated Resolved Time Rule Out COVID-19 05/17/2022 05/17/2022 05/17/2022 10:20 PM CIRCLE SHEAR OPERATOR Rule Out COVID-19 06/09/2022 06/09/2022 06/09/2022 9:35 AM CIRCLE SHEAR OPERATOR COVID-19 06/09/2022 06/09/2022 06/30/2022 11:4 1 PM CIRCLE SHEAR OPERATOR Rule Out COVID-19 11/10/2022 11/10/2022 11/11/2022 12:17 PM CDT Rule Out COVID-19 03/07/2023 03/07/2023 03/07/2023 1:20 PM CDT Rule Out COVID-19 12/26/2023 12/26/2023 12/26/2023 9:50 AM CDT Rule Out COVID-19 04/09/2024 04/09/2024 04/10/2024 6:48 PM CDT Assessment Noted Time PHQ-9 Depression Total Score: 3 05/13/20 8:49 PM CDT documented as of this encounter Care Teams Sign Letterer Relationship Specialty Start Date End Date Marija Edgar APRN CARRIER DRIVER PCP - General Nurse Practitioner 04/30/20 04/14/23 Esha Grimm PA-C [address] [place] [phone] PCP - General Family Medicine 05/04/23 Lita Oseguera Personal Advocate & Liaison (PAL) 02/28/20 03/27/23 Marija Edgar APRN CARRIER DRIVER Assigned PCP 06/08/20 04/29/23 Keisha Dotson MD [address] [place], [place] 937465 Assigned Neuroscience Provider 06/04/20 04/01/23 Diana Desir [facility] [address] [place] [address] Pharmacist Pharmacist 04/17/21 Rain Galaviz PA-C [address] [place] [address] [address] [facility] [place] [address] Physician Jewelry Sales Associate Dermatology 04/28/21 Tavia Wyatt MD [address] [place] [address] [address] [facility] [place] [address] Dermatology 07/14/21 Erica Farrell APRN CARRIER DRIVER [address] [place] [address] Nurse Practitioner Cardiovascular Disease 09/09/21 Rich Barrett MD [address] [address] Physician Ophthalmology 01/21/22 Neil Kent MD 500 [place] [address] Dermatology 02/24/22 Roney Story DPM [address] [facility] [address] [place], [place] 241567 Assigned Musculoskeletal Provider 03/20/22 08/13/22 Diana Desir, [facility] [address] [place], [place] 621656 Assigned MTM Pharmacist 04/07/22 Jelena David OD [address] [facility] [place] [address] Assigned Surgical Provider 05/08/22 10/08/22 Galo Burrell MD Assigned Heart and Vascular Provider 04/17/22 06/11/22 Livan Sharif MD [address], [address] [place] [address] Cardiovascular Disease 05/14/22 Livan Sharif MD [address], [address] [place] [address] Assigned Heart and Vascular Provider 06/12/22 07/23/22 Catherine Cm MD [address] [place], [place] 967455 Cardiovascular Disease 07/21/22 Valery Veronica, PA-C [address] [place] [address] 531815 Physician Jewelry Sales Associate Dermatology 07/21/22 Catherine Cm MD [address] [place], [place] 096435 Assigned Heart and Vascular Provider 07/24/22 11/05/22 Johnny Murillo MD [facility] [address] 597354 Assigned Musculoskeletal Provider 08/14/22 10/08/22 Brea Quinn APRN CARRIER DRIVER [address] [place] [address] 017855 Nurse Practitioner Dermatology 09/21/22 Brea Quinn APRN CARRIER DRIVER [address] [place] [address] Assigned Surgical Provider 10/09/22 05/01/24 [place] [address] [address] [facility] [address] [place] [address] Assigned Musculoskeletal Provider 10/09/22 05/01/24 Livan Sharif MD [address] [facility] [address] [place] 610175 Assigned Heart and Vascular Provider 11/06/22 11/12/22 Catherine Cm MD [address] [place] [address] [place] [address] Assigned Heart and Vascular Provider 11/13/22 05/27/23 Sydnie Martinez, RN Personal Advocate & Liaison (PAL) Family Medicine 03/28/23 07/31/23 Alfonso Renteria MD 5775 [facility] 200 [place] [address] Assigned Neuroscience Provider 04/02/23 Cheng Todd PA-C [address] [place] [address] Assigned PCP 04/30/23 07/15/23 Radha Lomeli APRN CARRIER DRIVER [address] [place] [address] Assigned Heart and Vascular Provider 05/28/23 Jelena David OD [address] [facility] [place] [address] Ophthalmology 06/15/23 Pao Joseph, RN Personal Advocate & Liaison (PAL) Nurse 08/01/23 11/07/23 Esha Grmim PA-C [address] [place] [address] Assigned PCP 07/16/23 Valery Veronica PA-C [address] [place] [address] 983295 Physician Jewelry Sales Associate Dermatology 09/19/23 Rey Tay MD [address] [place] [address] 224355 MD Gastroenterology 09/20/23 Rocky Zepeda DO [address] [place] [address] 532395 Physician Gastroenterology 09/20/23 Philip Dumont MD [address] [place] [address] 649095 Physician Ophthalmology 09/22/23 Meredith [place]rera PA-C [address] [place] [address] 747525 Assigned Gastroenterology Provider 11/01/23 Neil [place] MD [address] [address] Dermatology 11/02/23 [place] [address] [place] [address] Neurological Surgery 12/26/23 Audrey Waite PA-C 500 [place] [address] Physician Jewelry Sales Associate Dermatology 02/28/24 Valery Veronica PA-C [address] [place] [address] Physician Jewelry Sales Associate Dermatology 04/10/24 documented as of this encounter
--- OUTSIDE RECORDS SUMMARY | 2024-05-27 08:52 | XMS_ITS | Encounter Summary ---
Author Organization [place] Address [address] [place] [address] Care Team Providers Care Usability Specialist Name Role Phone Lita Oseguera Unavailable Unavailable Marija Edgar APRN PUBLIC AFFAIRS SPECIALIST Primary Care Provider + Marija Edgar APRN PUBLIC AFFAIRS SPECIALIST Unavailable [phone] Mynor Broussard MD Unavailable [phone] Keisha Dotson MD Unavailable Galo Burrell MD Unavailable Unavailable Diana Desir [facility] Unavailable Rain Galaviz PA-C Unavailable Summer Lara MD Unavailable [phone] Tavia Wyatt MD Unavailable Unavailable Johnny Murillo MD Unavailable Erica Farrell APRN PUBLIC AFFAIRS SPECIALIST Unavailable Tavia Wyatt MD Unavailable Unavailable Diana Desir [facility] Unavailable Rich Barrett MD Unavailable Neil Kent MD Unavailable Roney Story DPM Unavailable Erica Farrell APRN PUBLIC AFFAIRS SPECIALIST Unavailable Diana Desir [facility] Unavailable [phone] Jelena David OD Unavailable Galo Burrell MD Unavailable Unavailable HoLivan MD Unavailable Livan Sharif MD Unavailable IskoCatherine boothe MD Unavailable + Valery Veronica PA-C Unavailable [phone] Catherine Cm MD Unavailable + Johnny Murillo MD Unavailable [phone] Brea Quinn INSECT CONTROL AIDE PUBLIC AFFAIRS SPECIALIST Unavailable [phone] Brea Quinn INSECT CONTROL AIDE PUBLIC AFFAIRS SPECIALIST Unavailable [phone] Jose Francisco Johnson MD Unavailable Livan Sharif MD Unavailable + IsCatherine boothe MD Unavailable + Sydnie Martinez RN Unavailable Unavailable Alfonso Renteria MD Unavailable Esha Grimm-C Primary Care Provider Cheng Todd PA-C Unavailable Radha Lomeli INSECT CONTROL AIDE PUBLIC AFFAIRS SPECIALIST Unavailable [phone] Jelena Davide OD Unavailable Pao Joseph RN Unavailable Unavailable Esha Grimm-C Unavailable [phone] Valery Veronica PA-C Unavailable [phone] Rey Tay MD Unavailable Rocky Zepeda DO Unavailable Philip Dumont MD Unavailable [phone] Meredith Carrera PA-C Unavailable [phone] Neil Kent MD Unavailable Juan Pablo Emmanuel MD Unavailable Audrey WaiteC Unavailable [phone] Valery VeronicaC Unavailable Encounter Details Date Type Department Care Team (Late st Contact Info) Description 10/17/2021 MyC Medical Advice [facility] [address] [place] [phone] Diana Desir, [facility] [address] [place] [address] Social History Tobacco Use Types [...] How often do you attend mormon or mandaeism serv ices? Never 09/22/2021 Do [...] Score 2 09/22/2021 [facility] [...] a senior living (including now)? No 09/22/2021 [place] Depression Scale [...] PM CDT Legal Sex Female 4:13 AM PRODUCTION CONTROL MANAGER Gender Identity Female 03/02/2021 5:45 PM [...] st Contact Info) Description 05/31/2024 8:40 AM PRODUCTION CONTROL MANAGER Therapy Visit [facility] [address] [place] [phone] Ingris Thompson, PT [facility] [address] [place] [address] 106 [place] [address] 05/31/2024 3:30 PM PRODUCTION CONTROL MANAGER Office Visit [facility] [address] [phone] Audrey Díaz, Herminia Koo MD [address] [place] [address] 06/04/2024 3:30 PM PRODUCTION CONTROL MANAGER Office Visit [facility] [place] [address] [facility] [address] [place] [phone] Jelena David, [place] 3305 [facility] [place] [address] 06/11/2024 10:30 AM PRODUCTION CONTROL MANAGER Appointment [facility] Respiratory Therapy [address] [place] [phone] Spec, Nurse Only Med 06/18/2024 2:50 PM PRODUCTION CONTROL MANAGER Therapy Visit [facility] [address] [place] [phone] Ingris Thompson, PT [facility] 6 [facility] 106 [place] [address] 06/21/2024 2:00 PM PRODUCTION CONTROL MANAGER Office Visit [facility] [place] [address] [place] [address], [address] [place] [phone] [place] [address] [place] [address] Johnny Penn MD 6554 [place], [place] [address]695 06/25/2024 8:30 AM PRODUCTION CONTROL MANAGER Office Visit [address] [phone] Valery Veronica, PA-C [address] [place] [address] 11/28/2024 7:45 AM CDT Virtual Visit [facility] [place] 9[address] [facility] 4th [place] [phone] Meredith Carrera PA-C 909 [place] [address] documented as of this encounter Visit Diagnoses Not on filedocumented in this encounter Additional Health Concerns Infection Onset Date Last Indicated Resolved Time Rule Out COVID-19 12/18/2021 12/18/2021 12/19/2021 11:34 AM CDT Rule Out COVID-19 02/24/2022 02/24/2022 02/25/2022 1:08 PM CDT Rule Out COVID-19 04/26/2022 04/26/2022 04/26/2022 6:47 AM CDT Rule Out COVID-19 05/17/2022 05/17/2022 05/17/2022 10:20 PM PRODUCTION CONTROL MANAGER Rule Out COVID-19 06/09/2022 06/09/2022 06/09/2022 9:35 AM PRODUCTION CONTROL MANAGER COVID-19 06/09/2022 06/09/2022 06/30/2022 11:4 1 PM PRODUCTION CONTROL MANAGER Rule Out COVID-19 11/10/2022 11/10/2022 11/11/2022 12:17 PM CDT Rule Out COVID-19 03/07/2023 03/07/2023 03/07/2023 1:20 PM CDT Rule Out COVID-19 12/26/2023 12/26/2023 12/26/2023 9:50 AM CDT Rule Out COVID-19 04/09/2024 04/09/2024 04/10/2024 6:48 PM CDT Assessment Noted Time PHQ-9 Depression Total Score: 2 04/02/20 10:19 AM CDT documented as of this encounter Care Teams Usability Specialist Relationship Specialty Start Date End Date Marija Edgar APRN CNP PCP - General Nurse Practitioner 04/30/20 04/14/23 Esha Grimm PA-C [address] [place] [address] PCP - General Family Medicine 05/04/23 Lita Oseguera Personal Advocate & Liaison (PAL) 02/28/20 03/27/23 Marija Edgar APRN CNP Assigned PCP 06/08/20 04/29/23 Mynor Broussard MD [address] [address] Assigned Surgical Provider 06/01/20 11/28/21 Keisha Dotson MD 909 [place] [address] Assigned Neuroscience Provider 06/04/20 04/01/23 Galo Burrell MD Assigned Heart and Vascular Provider 10/05/20 04/02/22 [facility] [address] [place] [address] Pharmacist Pharmacist 04/17/21 Rain Galaviz PA-C [address] [place] [address] [address] [place] [address] Physician Trucksmith Dermatology 04/28/21 Summer Lara MD [address] [place], [place] 859154 Assigned OBGYN Provider 05/31/21 9/ 2 Tavia Wyatt MD [address] [place], [place] [address] Dermatology 07/14/21 Johnny Murillo MD [address] [place] [address] Assigned Musculoskeletal Provider 08/30/21 03/17/22 Erica Farrell APRN PUBLIC AFFAIRS SPECIALIST 6405 [facility] [address] [place] [address] Nurse Practitioner Cardiovascular Disease 09/09/21 Tavia Wyatt MD Assigned Surgical Provider 11/29/21 05/07/22 Diana Desir, [facility] [address] [place] [address] Assigned MTM Pharmacist 01/02/22 Rich Barrett MD 516 [facility] [address] [place] [address] Physician Ophthalmology 01/21/22 Neil Kent MD 500 [place], [place] 919965 Dermatology 02/24/22 Roney Story DPM 37011 [facility] 300 [place], [place] 121627 Assigned Musculoskeletal Provider 03/20/22 08/13/22 Erica Farrell APRN PUBLIC AFFAIRS SPECIALIST 1700 [place] [address] Assigned Heart and Vascular Provider 04/03/22 04/16/22 Diana Desir [facility] 30[address] [place] [address] Assigned MTM Pharmacist 04/07/22 Jelena David OD [address] [facility] [place] [address] Assigned Surgical Provider 05/08/22 10/08/22 Galo Burrell MD Assigned Heart and Vascular Provider 04/17/22 06/11/22 Livan Sharif MD [address] [address] [place] 5[address] Cardiovascular Disease 05/14/22 Livan Sharif MD [address] [place] 002845 Assigned Heart and Vascular Provider 06/12/22 07/23/22 Catherine Cm MD [address] [address] [place] 824615 Cardiovascular Disease 07/21/22 Valery Veronica, PAUcheC 909 [place], [place] 898125 Physician Trucksmith Dermatology 07/21/22 Catherine Cm MD [address] [address] [place] 683645 Assigned Heart and Vascular Provider 07/24/22 11/05/22 Johnny Murillo MD [address] 046644 Assigned Musculoskeletal Provider 08/14/22 10/08/22 Brea Quinn APRN PUBLIC AFFAIRS SPECIALIST 500 [place] [address] Nurse Practitioner Dermatology 09/21/22 Brea Quinn APRN PUBLIC AFFAIRS SPECIALIST 6401 [facility] [place] 782622 Assigned Surgical Provider 10/09/22 05/01/24 [place] [address] [facility] 300 [place], [place] 379517 Assigned Musculoskeletal Provider 10/09/22 05/01/24 Livan Sharif MD [address] [facility] [address] [place] [address] Assigned Heart and Vascular Provider 11/06/22 11/12/22 Catherine Cm MD [address] [facility]00 [place] [address] Assigned Heart and Vascular Provider 11/13/22 05/27/23 Sydnie Martinez RN Personal Advocate & Liaison (PAL) Family Medicine 03/28/23 07/31/23 Alfonso Renteria MD 5775 [facility] 200 [place], [place] 739326 Assigned Neuroscience Provider 04/02/23 Cheng Todd PA-C [address] [place] [address] Assigned PCP 04/30/23 07/15/23 Radha Lomeli APRN PUBLIC AFFAIRS SPECIALIST 6405 [facility] [address] [place] [address] Assigned Heart and Vascular Provider 05/28/23 Jelnea David OD [address] [facility] [place] [address] MD Ophthalmology 06/15/23 Pao Joseph, VJ Personal Advocate & Liaison (PAL) Nurse 08/01/23 11/07/23 Esha Grimm PA-C [address] [place] [phone] Assigned PCP 07/16/23 Valery Veronica PA-C [address] [place] [address] 724265 Physician Trucksmith Dermatology 09/19/23 Rey Tay MD [address] [place] [address] 509635 Gastroenterology 09/20/23 Rocky Zepeda DO [address] [place] [address] 338005 Physician Gastroenterology 09/20/23 Philip Dumont MD [address] [place] [address] 657795 Physician Ophthalmology 09/22/23 Meredith Carrera PA-C [address] [place] [address] 026505 Assigned Gastroenterology Provider 11/01/23 Neil Kent MD [address] [place] [address] Dermatology 11/02/23 [place] [address] [facility] [place], [place] 629317 Neurological Surgery 12/26/23 Audrey Waite PA-C 500 [place] [address] Physician Trucksmith Dermatology 02/28/24 Valery Veronica PA-C 772497 [address], [place] [address] Physician Trucksmith Dermatology 04/10/24 documented as of this encounter
--- OUTSIDE RECORDS SUMMARY | 2024-05-27 08:52 | XMS_ITS | Encounter Summary ---
Author Organization [place] Address [address] [place] [address] Care Team Providers Care System Support Analyst Name Role Phone Lita Oseguera Unavailable Unavailable Marija Edgar APRN COMPANY DANCER Primary Care Provider + Marija Edgar APRN COMPANY DANCER Unavailable [phone] Mynor Broussard MD Unavailable [phone] Keisha Dotson MD Unavailable Galo Burrell MD Unavailable Unavailable Diana Desir [facility] Unavailable Rain Galaviz PA-C Unavailable Summer Lara MD Unavailable [phone] Tavia Wyatt MD Unavailable Unavailable Johnny Murillo MD Unavailable Erica Farrell APRN COMPANY DANCER Unavailable Tavia Wyatt MD Unavailable Unavailable Diana Desir [facility] Unavailable [phone] iRch Barrett MD Unavailable Neil Kent MD Unavailable Roney Story DPM Unavailable [phone] Erica Farrell APRN COMPANY DANCER Unavailable Diana Desir [facility] Unavailable [phone] Jelena David OD Unavailable Galo Burrell MD Unavailable Unavailable HoLivan MD Unavailable Livan Sharif MD Unavailable IskoCatherine boothe MD Unavailable + Valery Veronica PA-C Unavailable [phone] Catherine Cm MD Unavailable + Johnny Murillo MD Unavailable [phone] Brea Quinn PAINTING MANAGER COMPANY DANCER Unavailable [phone] Brea Quinn PAINTING MANAGER COMPANY DANCER Unavailable [phone] Jose Francisco Johnson MD Unavailable Livan Sharif MD Unavailable + IsCatherine boothe MD Unavailable + Sydnie Martinez RN Unavailable Unavailable Alfonso Renteria MD Unavailable Esha Grimm-C Primary Care Provider Cheng Todd PA-C Unavailable Radha Lomeli PAINTING MANAGER COMPANY DANCER Unavailable [phone] Jelena Davide OD Unavailable Pao Joseph RN Unavailable Unavailable Esha Grimm-C Unavailable [phone] Valery Veronica PA-C Unavailable [phone] Rey Tay MD Unavailable Rocky Zepeda DO Unavailable Philip Dumont MD Unavailable [phone] Meredith Carrera PA-C Unavailable [phone] Neil Kent MD Unavailable Juan Pablo Emmanuel MD Unavailable [phone] Audrey Waite PA-C Unavailable [phone] Valery Veronica PA-C Unavailable [phone] Reason for Visit * Reason Onset Date Comments Refill Request 10/31/2021 sertraline Encounter Details Date Type Department Care Team (Late st Contact Info) Description 10/31/[address] [address] Marija Edgar APRN [facility] [address] [place] [address] Refill Request (sertraline) Social History Tobacco [...] How often do you attend zoroastrianism or islam serv ices? Never 09/22/2021 Do [...] 09/22/2021 [facility] Occupat [...] in a jail (including now)? No 09/22/2021 [place] Depression Scale Answer Date Recorded [place] [...] PM CDT Legal Sex Female 4:13 AM DIGITAL MARKETING COORDINATOR Gender Identity Female 03/02/2021 5:45 PM [...] - 11/02/2021 8:58 AM CDT Approved per [facility] CPA. Diana Desir, PharmD Medication Therapy Management Provider, [facility] Pager: [phone] * Telephone Encounter - Aleyda Scott RN [...] daily. Pt has follow up tomorrow with [facility] pharmacist to continue to work on taper. Appointments in Next Year Nov 03, 2021 3:30 PM Pharmacist Visit with Diana Desir [facility] ([facility] ) [phone] Informed patient that will route refill request [...] can be reached at: Other phone number: [phone] Best Time: ANYTIME Can we leave a detailed message on this number? YES Call taken on 10/31/2021 at 10:31 AM by Amalia Deluca documented in this encounter Plan of Treatment Upcoming Encounters Date Type Department Care Team (Late st Contact Info) Description 05/31/2024 8:40 AM DIGITAL MARKETING COORDINATOR Therapy Visit [facility] [address] 160 [place] [phone] Ingris Thompson, PT [facility] [address] [place] [address] 106 [place] [address] 05/31/2024 3:30 PM DIGITAL MARKETING COORDINATOR Office Visit [facility] [address] [phone] Audrey Díaz, Herminia Koo MD [address] [place] [address] [phone] 06/04/2024 3:30 PM DIGITAL MARKETING COORDINATOR Office Visit [facility] [place] [address]305 [facility] [address] [place] [phone] Jelena Davide, OD 3305 [facility] [place] [address] 06/11/2024 10:30 AM DIGITAL MARKETING COORDINATOR Appointment [facility] Respiratory Therapy [address] [place] [phone] Spec, Nurse Only Med 06/18/2024 2:50 PM DIGITAL MARKETING COORDINATOR Therapy Visit [facility] [address] [place] [phone] Ingris Thompson, PT [facility] 6 [facility] 106 [place], [place] 3[address]65 06/21/2024 2:00 PM DIGITAL MARKETING COORDINATOR Office Visit [facility] [place] [address] [place] [address], [address] [place] [phone] [place] [address] [place], [place] 5339[address] Johnny Penn MD 6562 [facility] [place] 793675 06/25/2024 8:30 AM DIGITAL MARKETING COORDINATOR Office Visit [address] [phone] Valery Veronica, PAUcheC [address] [place] [address] 11/28/2024 7:45 AM CDT Virtual Visit [facility] [address] 4th [place] [phone] Meredith Carrera PA-C [address] [place] [address] documented as of this encounter Visit Diagnoses [...] Out COVID-19 05/17/2022 05/17/2022 05/17/2022 10:20 PM DIGITAL MARKETING COORDINATOR Rule Out COVID-19 06/09/2022 06/09/2022 06/09/2022 9:35 AM DIGITAL MARKETING COORDINATOR COVID-19 06/09/2022 06/09/2022 06/30/2022 11:4 1 PM DIGITAL MARKETING COORDINATOR Rule Out COVID-19 11/10/2022 11/10/2022 11/11/2022 12:17 PM CDT Rule Out COVID-19 03/07/2023 03/07/2023 03/07/2023 1:20 PM CDT Rule Out COVID-19 12/26/2023 12/26/2023 12/26/2023 9:50 AM CDT Rule Out COVID-19 04/09/2024 04/09/2024 04/10/2024 6:48 PM CDT Assessment Noted Time PHQ-9 Depression Total Score: 2 04/02/20 21 10:19 AM CDT documented as of this encounter Care Teams System Support Analyst Relationship Specialty Start Date End Date Marija Edgar APRN CNP PCP - General Nurse Practitioner 04/30/20 04/14/23 Esha Grimm PA-C [address] [place] [phone] PCP - General Family Medicine 05/04/23 Lita Oseguera Personal Advocate & Liaison (PAL) 02/28/20 03/27/23 Marija Edgar APRN COMPANY DANCER Assigned PCP 06/08/20 04/29/23 Mynor Broussard MD 6363 [facility] 500 [place], [place] 432675 Assigned Surgical Provider 06/01/20 11/28/21 Trevor-Keisha Peter MD 909 [place], [place] 859905 Assigned Neuroscience Provider 06/04/20 04/01/23 Galo Burrell MD Assigned Heart and Vascular Provider 10/05/20 04/02/22 Diana Desir, [facility] 3033 [place] [address] Pharmacist Pharmacist 04/17/21 Rain Galaviz PA-C [address] [facility] [address] [place] [address] Physician Administrator Social Welfare Dermatology 04/28/21 Summer Lara MD [address] [place] [address] 834414 Assigned OBGYN Provider 05/31/21 2 Tavia Wyatt MD [address] [place] [address] Dermatology 07/14/21 Johnny Murillo MD [address] [place] [address] Assigned Musculoskeletal Provider 08/30/21 03/17/22 rEica Farrell APRN COMPANY DANCER 6405 [facility] [address] [place] [address] Nurse Practitioner Cardiovascular Disease 09/09/21 Tavia Wyatt MD Assigned Surgical Provider 11/29/21 05/07/22 Diana Desir, [facility] 3033 [place] [address] Assigned MTM Pharmacist 01/02/22 Rich Barrett MD 516 [facility] 9A [place], [place] [address] Physician Ophthalmology 01/21/22 Neil Kent MD 500 [place] [address] Dermatology 02/24/22 Roney Story DPM [address] [facility] [address] [place], [place] 8669[address] Assigned Musculoskeletal Provider 03/20/22 08/13/22 Erica Farrell APRN COMPANY DANCER 1700 [place] [address] Assigned Heart and Vascular Provider 04/03/22 04/16/22 Diana Desir, [facility] [address] [place], [place] 542966 Assigned MTM Pharmacist 04/07/22 Frankie Jelena SONJA Garcia 3305 [facility] [place] [address] Assigned Surgical Provider 05/08/22 10/08/22 Galo Burrell MD Assigned Heart and Vascular Provider 04/17/22 06/11/22 Livan Sharif MD [address] [place], [place] [address] Cardiovascular Disease 05/14/22 Livan Sharif MD [address] [place] [address] Assigned Heart and Vascular Provider 06/12/22 07/23/22 Catherine Cm MD [address] [address] [place] [address] Cardiovascular Disease 07/21/22 Valery Veronica PAUcheC 909 [place] [address] Physician Administrator Social Welfare Dermatology 07/21/22 Catherine Cm MD [address] [place], [place] 163[address] Assigned Heart and Vascular Provider 07/24/22 11/05/22 Johnny Murillo MD [address] [place] [address] Assigned Musculoskeletal Provider 08/14/22 10/08/22 Brea Quinn APRN COMPANY DANCER 500 [facility] [place] [address] Nurse Practitioner Dermatology 09/21/22 Brea Quinn APRN COMPANY DANCER [address] [facility] [place] 882662 Assigned Surgical Provider 10/09/22 05/01/24 [place] [address] [facility] 300 [place], [place] [address] Assigned Musculoskeletal Provider 10/09/22 05/01/24 Livan Sharif MD [address], [facility] [address] [place] [address] Assigned Heart and Vascular Provider 11/06/22 11/12/22 Catherine Cm MD [address] [facility] [address] [place] [address] Assigned Heart and Vascular Provider 11/13/22 05/27/23 Sydnie Martinez RN Personal Advocate & Liaison (PAL) Family Medicine 03/28/23 07/31/23 Alfonso Renteria MD 5775 [facility] 200 [place] [address] Assigned Neuroscience Provider 04/02/23 Cheng Todd PA-C [address] [place] [address] Assigned PCP 04/30/23 07/15/23 Radha Lomeli APRN CNP 6405 [facility] [address] [place] [address] Assigned Heart and Vascular Provider 05/28/23 Jelena David OD [facility]5 [facility] [place] [address] MD Ophthalmology 06/15/23 Pao Joseph, VJ Personal Advocate & Liaison (PAL) Nurse 08/01/23 11/07/23 Esha Grimm PA-C [address] [place] [address] Assigned PCP 07/16/23 Valery Veronica PA-C [address] [place] [address] 725015 Physician Administrator Social Welfare Dermatology 09/19/23 Rey Tay MD [address] [place] [address] 175165 Gastroenterology 09/20/23 Rocky Zepeda DO [address] [place] [address] 949695 Physician Gastroenterology 09/20/23 Philip Dumont MD [address] [place] [address] Physician Ophthalmology 09/22/23 Meredith Carrera PA-C 909 [place] [address] Assigned Gastroenterology Provider 11/01/23 Neil Kent MD [address] [place] [address] Dermatology 11/02/23 [place] [address] [address] Neurological Surgery 12/26/23 Audrey Waite PA-C 500 [place] [address] Physician Administrator Social Welfare Dermatology 02/28/24 Valery Veronica PA-C [address] [place] [address] Physician Administrator Social Welfare Dermatology 04/10/24 documented as of this encounter
--- OUTSIDE RECORDS SUMMARY | 2024-05-27 08:52 | XMS_ITS | Encounter Summary ---
Author Organization [place] Address [address] [place] [address] Care Team Providers Care Motorized Squad Sergeant Name Role Phone Lita Oseguera Unavailable Unavailable Marija Edgar APRN ELECTRONIC FUNDS TRANSFER COORDINATOR Primary Care Provider + Marija Edgar APRN ELECTRONIC FUNDS TRANSFER COORDINATOR Unavailable [phone] Mynor Broussard MD Unavailable [phone] Keisha Dotson MD Unavailable [phone] Galo Burrell MD Unavailable Unavailable Diana Desir [facility] Unavailable [phone] Rain Galaviz PA-C Unavailable Summer Lara MD Unavailable [phone] Tavia Wyatt MD Unavailable Unavailable Johnny Murillo MD Unavailable Erica Farrell APRN ELECTRONIC FUNDS TRANSFER COORDINATOR Unavailable Teresita Bean [facility] Unavailable Tavia Wyatt MD Unavailable Unavailable Diana Desir [facility] Unavailable Rich Barrett MD Unavailable Neil Kent MD Unavailable Roney StoryM Unavailable [phone] Erica Farrell MOLD TECHNICIAN ELECTRONIC FUNDS TRANSFER COORDINATOR Unavailable Diana Desir [facility] Unavailable [phone] Jelena David OD Unavailable [phone] Galo Burrell MD Unavailable Unavailable Livan Sharif MD Unavailable Livan Sharif MD Unavailable + Catherine Cm MD Unavailable + Valery Veronica PA-C Unavailable [phone] Catherine Cm MD Unavailable + Johnny Murillo MD Unavailable [phone] Brea Quinn MOLD TECHNICIAN ELECTRONIC FUNDS TRANSFER COORDINATOR Unavailable [phone] Brea Quinn MOLD TECHNICIAN ELECTRONIC FUNDS TRANSFER COORDINATOR Unavailable [phone] Jose Francisco Johnson MD Unavailable Livan Sharif MD Unavailable + IsCatherine hobbs MD Unavailable + Sydnie Martinez RN Unavailable Unavailable Alfonso Renteria MD Unavailable + [phone] Esha Grimm PA-C Primary Care Provider Cheng Todd PA-C Unavailable Radha Lomeli MOLD TECHNICIAN ELECTRONIC FUNDS TRANSFER COORDINATOR Unavailable [phone] Jelena David OD Unavailable [phone] Pao Joseph RN Unavailable Unavailable Esha Grimm PA-C Unavailable [phone] Valery Veronica PA-C Unavailable [phone] Rey Tay MD Unavailable Rocky Zepeda DO Unavailable Philip Dumont MD Unavailable [phone] Debi Meredithnahed DOWC Unavailable [phone] Neil Kent MD Unavailable Juan Pablo Emmanuel MD Unavailable [phone] ErikacaryndelmyAudrey Hemant DOWC Unavailable [phone] Valery Veronica-C Unavailable [phone] Encounter Details Date Type Department Care Team (Late st Contact Info) Description 09/24/2021 [facility] [address] [facility] [address] [place] [address] Teresita Bean, [facility] [address] [place] [address] [place] [address] Social History Tobacco Use [...] How often do you attend mormon or anabaptism serv ices? Never 09/22/2021 Do [...] Answer Date Recorded PHQ-2 Score 2 09/22/2021 [facility] - Occupational Stress [...] in a alf (including now)? No 09/22/2021 [place] Depression Scale Answer Date Recorded [place] Depression Score 5 01/14/2021 Last EPDS Self Harm Result Not on file 01/14 Education Answer Date Recorded What is the highest level of school you have completed or the highest degree you have received? 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 ELECTRIC MOTOR FITTER Gender Identity Female 03/02/2021 5:45 PM CDT [...] Info) Description 05/31/2024 8:40 AM ELECTRIC MOTOR FITTER Therapy Visit [facility] Rehabilitation Services [address] [place] [phone] Ingris Thompson, PT [facility] [address] [place] [address] 05/31/2024 3:30 PM ELECTRIC MOTOR FITTER Office Visit [facility] [address] [phone] Audrey Díaz, Herminia Koo MD [address] [place] [address] [phone] 06/04/2024 3:30 PM ELECTRIC MOTOR FITTER Office Visit [facility] [place] [address] [facility] [address] [place] [phone] Jelena David, [place] [address] [facility] [place] [address] 06/11/2024 10:30 AM ELECTRIC MOTOR FITTER Appointment [facility] Respiratory Therapy [address] [place] [phone] Spec, Nurse Only Med 06/18/2024 2:50 PM ELECTRIC MOTOR FITTER Therapy Visit [facility] Rehabilitation Services [address] [place] [phone] Ingris Thompson, PT [facility] 6 [facility] 106 [place], [place] [address] 06/21/2024 2:00 PM ELECTRIC MOTOR FITTER Office Visit [facility] - [place] [address] [facility], [address] [place] [phone] [place] [address] [place] [address] Johnny Penn MD 6563 [facility] [place] [address]335 06/25/2024 8:30 AM ELECTRIC MOTOR FITTER Office Visit [address] [phone] Valery Veronica, PAUcheC [address] [place] [address] 11/28/2024 7:45 AM CDT Virtual Visit [facility] Gastroenterology [address]th [place] [address] Meredith Carrera PA-C 909 [place] [address] documented as of this encounter Visit Diagnoses Not on filedocumented in this encounter Additional Health Concerns Infection Onset Date Last Indicated Resolved Time Rule Out COVID-19 12/18/2021 12/18/2021 12/19/2021 11:34 AM CDT Rule Out COVID-19 02/24/2022 02/24/2022 02/25/2022 1:08 PM CDT Rule Out COVID-19 04/26/2022 04/26/2022 04/26/2022 6:47 AM CDT Rule Out COVID-19 05/17/2022 05/17/2022 05/17/2022 10:20 PM ELECTRIC MOTOR FITTER Rule Out COVID-19 06/09/2022 06/09/2022 06/09/2022 9:35 AM ELECTRIC MOTOR FITTER COVID-19 06/09/2022 06/09/2022 06/30/2022 11:4 1 PM ELECTRIC MOTOR FITTER Rule Out COVID-19 11/10/2022 11/10/2022 11/11/2022 12:17 PM CDT Rule Out COVID-19 03/07/2023 03/07/2023 03/07/2023 1:20 PM CDT Rule Out COVID-19 12/26/2023 12/26/2023 12/26/2023 9:50 AM CDT Rule Out COVID-19 04/09/2024 04/09/2024 04/10/2024 6:48 PM CDT Assessment Noted Time PHQ-9 Depression Total Score: 2 04/02/20 21 10:19 AM CDT documented as of this encounter Care Teams Motorized Squad Sergeant Relationship Specialty Start Date End Date Marija Edgar APRN CNP PCP - General Nurse Practitioner 04/30/20 04/14/23 Esha Grimm PA-C [address] [place] [phone] PCP - General Family Medicine 05/04/23 Lita Oseguera Personal Advocate & Liaison (PAL) 02/28/20 03/27/23 Marija Edgar APRN ELECTRONIC FUNDS TRANSFER COORDINATOR Assigned PCP 06/08/20 04/29/23 Mynor Broussard MD [address] [address] Assigned Surgical Provider 06/01/20 11/28/21 Keisha Dotson MD 909 [place], [place] 0[address] Assigned Neuroscience Provider 06/04/20 04/01/23 Galo Burrell MD Assigned Heart and Vascular Provider 10/05/20 04/02/22 [facility] 3033 [place] [address] Pharmacist Pharmacist 04/17/21 Rain Galaviz PA-C [address] [place] [address] [address] [place] [address] Physician Fashion Styling Intern Dermatology 04/28/21 Summer Lara MD [address] [place] [address] Assigned OBGYN Provider 05/31/21 9 2 Tavia Wyatt MD [address] [place] [address] Dermatology 07/14/21 Johnny Murillo MD [address] [place] [address] Assigned Musculoskeletal Provider 08/30/21 03/17/22 Erica Farrell APRN ELECTRONIC FUNDS TRANSFER COORDINATOR [address] [place] [address] Nurse Practitioner Cardiovascular Disease 09/09/21 Teresita Bean, [facility] [address] [place], [place] [phone] Pharmacist Pharmacist 09/24/21 09/29/21 Tavia Wyatt MD Assigned Surgical Provider 11/29/21 05/07/22 [facility] 3033 [place] [address] Assigned MTM Pharmacist 01/02/22 Rich Barrett MD 516 [facility] 9A [place], [place] [address]295 Physician Ophthalmology 01/21/22 Neil Kent MD 500 [place] [address] Dermatology 02/24/22 Roney Story DPM [address] [facility] 300 [place] [address] Assigned Musculoskeletal Provider 03/20/22 08/13/22 Erica Farrell APRN ELECTRONIC FUNDS TRANSFER COORDINATOR 1700 [place] [address] Assigned Heart and Vascular Provider 04/03/22 04/16/22 Diana Desir, [facility] 3033 [place] [address] Assigned MTM Pharmacist 04/07/22 Jelena David OD [address] [facility] [place] [address] Assigned Surgical Provider 05/08/22 10/08/22 Galo Burrell MD Assigned Heart and Vascular Provider 04/17/22 06/11/22 Livan Sharif MD [address] [place] [address] Cardiovascular Disease 05/14/22 Livan Sharif MD [address] [place] [address] Assigned Heart and Vascular Provider 06/12/22 07/23/22 Catherine Cm MD [address] [place] [address] Cardiovascular Disease 07/21/22 Valery Veronica PA-C 909 [place], [place] 301745 Physician Fashion Styling Intern Dermatology 07/21/22 Catherine Cm MD [address] [place] 416645 Assigned Heart and Vascular Provider 07/24/22 11/05/22 Johnny Murillo MD [facility] [address] [address] Assigned Musculoskeletal Provider 08/14/22 10/08/22 Brea Quinn APRN ELECTRONIC FUNDS TRANSFER COORDINATOR 500 [place] [address] Nurse Practitioner Dermatology 09/21/22 Brea Quinn APRN ELECTRONIC FUNDS TRANSFER COORDINATOR 6401 [place] [address] Assigned Surgical Provider 10/09/22 05/01/24 [place] [address] [facility] 300 [place] [address] Assigned Musculoskeletal Provider 10/09/22 05/01/24 Livan Sharif MD 6405 [facility] [place] [facility] [address] [place] [address] Assigned Heart and Vascular Provider 11/06/22 11/12/22 Catherine Cm MD 6[address] [facility] [address] [place] [address] Assigned Heart and Vascular Provider 11/13/22 05/27/23 Sydnie Martinez, RN Personal Advocate & Liaison (PAL) Family Medicine 03/28/23 07/31/23 Alfonso Renteria MD [address] [facility] 200 [place], [place] 313136 Assigned Neuroscience Provider 04/02/23 Cheng Todd PA-C [address] [place] [address] [phone] Assigned PCP 04/30/23 07/15/23 Radha Lomeli APRN ELECTRONIC FUNDS TRANSFER COORDINATOR 6405 [facility] [address] [place] [address] Assigned Heart and Vascular Provider 05/28/23 Jelena David OD [address] [facility] [place] [address] MD Ophthalmology 06/15/23 Pao Joseph, VJ Personal Advocate & Liaison (PAL) Nurse 08/01/23 11/07/23 Esha Grimm PA-C [address] [place] [address]22[address]83 Assigned PCP 07/16/23 Valery Veronica PA-C [address] [place] [address] Physician Fashion Styling Intern Dermatology 09/19/23 Rey Tay MD [address] [place] [address] Gastroenterology 09/20/23 Rocky Zepeda DO [address] [place] [address] 834865 Physician Gastroenterology 09/20/23 Philip Dumont MD [address] [place] [address] 229585 Physician Ophthalmology 09/22/23 Meredith Carrera PA-C 909 [place], [place] 179145 Assigned Gastroenterology Provider 11/01/23 Neil Kent MD [address] 804160 Dermatology 11/02/23 [place] [address] [place] [address] [address] Neurological Surgery 12/26/23 Audrey Waite PA-C [address] [place] [address] 752275 Physician Fashion Styling Intern Dermatology 02/28/24 Valery Veronica PA-C 704607 [place], [place] [address] Physician Fashion Styling Intern Dermatology 04/10/24 documented as of this encounter
--- OUTSIDE RECORDS SUMMARY | 2024-05-27 08:52 | XMS_ITS | Encounter Summary ---
Author Organization [facility] Address [address] [place] [address] Care Team Providers Care District Wire Chief Name Role Phone Lita Oseguera Unavailable Unavailable Marija Edgar APRN DEPARTMENT STORE SALESPERSON Primary Care Provider + Marija Edgar APRN DEPARTMENT STORE SALESPERSON Unavailable [phone] Mynor Broussard MD Unavailable [phone] Keisha Dotson MD Unavailable Galo Burrell MD Unavailable Unavailable Diana Desir [facility] Unavailable Rain Galaviz PA-C Unavailable Summer Lara MD Unavailable [phone] Tavia Wyatt MD Unavailable Unavailable Johnny Murillo MD Unavailable Erica Farrell APRN DEPARTMENT STORE SALESPERSON Unavailable Tavia Wyatt MD Unavailable Unavailable Diana Desir [facility] Unavailable Rich Barrett MD Unavailable Neil Kent MD Unavailable Roney Story DPM Unavailable [phone] Erica Farrell APRN DEPARTMENT STORE SALESPERSON Unavailable Diana Desir [facility] Unavailable [phone] Jleena David OD Unavailable Galo Burrell MD Unavailable Unavailable HoLivan MD Unavailable Livan Sharif MD Unavailable IskoCatherine boothe MD Unavailable + Valery Veronica PA-C Unavailable +[phone] Catherine Cm MD Unavailable + Johnny Murillo MD Unavailable [phone] Brea Quinn HEALTHCARE RECEPTIONIST DEPARTMENT STORE SALESPERSON Unavailable [phone] Brea Quinn HEALTHCARE RECEPTIONIST DEPARTMENT STORE SALESPERSON Unavailable [phone] Jose Francisco Johnson MD Unavailable Livan Sharif MD Unavailable + IsCatherine boothe MD Unavailable + Sydnie Martinez RN Unavailable Unavailable Alfonso Renteria MD Unavailable Esha Grimm-C Primary Care Provider Chneg Todd PA-C Unavailable Radha Lomeli HEALTHCARE RECEPTIONIST DEPARTMENT STORE SALESPERSON Unavailable [phone] Jelena Davide OD Unavailable Pao Joseph RN Unavailable Unavailable Esha Grimm-C Unavailable [phone] Valery Veronica PA-C Unavailable [phone] Rey Tay MD Unavailable Rocky Zepeda DO Unavailable Philip Dumont MD Unavailable [phone] Meredith Carrera PA-C Unavailable [phone] Neil Kent MD Unavailable Juan Pablo Emmanuel MD Unavailable [phone] Audrey Waite PA-C Unavailable [phone] JeremíasMichela damonnarayan DOWC Unavailable Encounter Details Date Type Department Care Team (Late st Contact Info) Description 10/28/2021 MyC Medical Advice [facility] Heart [facility] [address] [facility] [address] [place] [address] Erica Farrell, [facility] 1700 [place] [address] Social History Tobacco Use Types Packs/Day Years [...] How often do you attend yazidism or methodist serv ices? Never 09/22/2021 Do [...] Date Recorded PHQ-2 Score 2 09/22/2021 [facility]at [facility] [...] in a intermediate (including now)? No 09/22/2021 [place] Depression Scale Answer Date Recorded [place] Depression Score 5 01/14/2021 Last EPDS Self Harm Result Not on file 01/14 Education Answer Date Recorded What is the highest level of school you have completed or the highest degree you have received? 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 COMPUTER CONSOLE OPERATOR Gender Identity Female 03/02/2021 5:45 PM [...] st Contact Info) Description 05/31/2024 8:40 AM COMPUTER CONSOLE OPERATOR Therapy Visit [facility] Rehabilitation Services [address] [place] [phone] Ingris Thompson, PT [facility] [address] [place] [address] 106 [place] [address] 05/31/2024 3:30 PM COMPUTER CONSOLE OPERATOR Office Visit [facility] [address] [phone] Audrey Díaz PA-C Khan, Waseem, MD [address] [place] [address] [phone] 06/04/2024 3:30 PM COMPUTER CONSOLE OPERATOR Office Visit [facility] [place] [address] [facility] [address] [place] [phone] Jelena David, OD [address] [facility] [place] [address] 06/11/2024 10:30 AM COMPUTER CONSOLE OPERATOR Appointment [facility] Respiratory Therapy [address] [place] [phone] Spec, Nurse Only Med 06/18/2024 2:50 PM COMPUTER CONSOLE OPERATOR Therapy Visit [facility] Rehabilitation Services [address] [place] [phone] Ingris Thompson, PT [facility] 6 [facility] 106 [place], [place] [address] 06/21/2024 2:00 PM COMPUTER CONSOLE OPERATOR Office Visit [facility] Neurology [facility] [address] [place] [address], [address] [place] [phone] [place] [address] [place], [place] 245[address] Johnny Penn MD [address] [place], [place] 9[address]265 06/25/2024 8:30 AM COMPUTER CONSOLE OPERATOR Office Visit [address] [phone] Valery Veronica PA-C [address] [place] [address] 11/28/2024 7:45 AM CDT Virtual Visit [facility] Gastroenterology [address] 4th [place] [phone] Meredith Carrera PA-C 909 [place] [address] documented as of this encounter Visit Diagnoses Not on filedocumented in this encounter Additional Health Concerns Infection Onset Date Last Indicated Resolved Time Rule Out COVID-19 12/18/2021 12/18/2021 12/19/2021 11:34 AM CDT Rule Out COVID-19 02/24/2022 02/24/2022 02/25/2022 1:08 PM CDT Rule Out COVID-19 04/26/2022 04/26/2022 04/26/2022 6:47 AM CDT Rule Out COVID-19 05/17/2022 05/17/2022 05/17/2022 10:20 PM COMPUTER CONSOLE OPERATOR Rule Out COVID-19 06/09/2022 06/09/2022 06/09/2022 9:35 AM COMPUTER CONSOLE OPERATOR COVID-19 06/09/2022 06/09/2022 06/30/2022 11:4 1 PM COMPUTER CONSOLE OPERATOR Rule Out COVID-19 11/10/2022 11/10/2022 11/11/2022 12:17 PM CDT Rule Out COVID-19 03/07/2023 03/07/2023 03/07/2023 1:20 PM CDT Rule Out COVID-19 12/26/2023 12/26/2023 12/26/2023 9:50 AM CDT Rule Out COVID-19 04/09/2024 04/09/2024 04/10/2024 6:48 PM CDT Assessment Noted Time PHQ-9 Depression Total Score: 2 04/02/20 21 10:19 AM CDT documented as of this encounter Care Teams District Wire Chief Relationship Specialty Start Date End Date Marija Edgar APRN CNP PCP - General Nurse Practitioner 04/30/20 04/14/23 Esha Grimm PA-C [address] [place] [address] PCP - General Family Medicine 05/04/23 Lita Oseguera Personal Advocate & Liaison (PAL) 02/28/20 03/27/23 Marija Edgar APRN DEPARTMENT STORE SALESPERSON Assigned PCP 06/08/20 04/29/23 Mynor Broussard MD 6363 [facility] 500 [place] [address] Assigned Surgical Provider 06/01/20 11/28/21 Keisha Dotson MD 909 [place] [address] Assigned Neuroscience Provider 06/04/20 04/01/23 Galo Burrell MD Assigned Heart and Vascular Provider 10/05/20 04/02/22 Diana Desir, [facility] [address] [place] [address] Pharmacist Pharmacist 04/17/21 Rain Galaviz PA-C [address] [place] [address] [address] [place] [address] Physician Scanning Coordinator Dermatology 04/28/21 Summer Lara MD [address] [place] [address] [phone] Assigned OBGYN Provider 05/31/21 9/ 2 Tavia Wyatt MD [address] [place] [address] Dermatology 07/14/21 Johnny Murillo MD [address] [place] [address] Assigned Musculoskeletal Provider 08/30/21 03/17/22 Erica Farrell APRN DEPARTMENT STORE SALESPERSON 6405 [facility] [address] [place] [address] Nurse Practitioner Cardiovascular Disease 09/09/21 Tavia Wyatt MD Assigned Surgical Provider 11/29/21 05/07/22 Diana Desir [facility] 3033 [place] [address] Assigned MTM Pharmacist 01/02/22 Rich Barrett MD [address] [address] Physician Ophthalmology 01/21/22 Niel Kent MD 500 [place] [address] Dermatology 02/24/22 Roney Story DPM [address] [facility] [address] [place] [address] Assigned Musculoskeletal Provider 03/20/22 08/13/22 Erica Farrell APRN DEPARTMENT STORE SALESPERSON 1700 [place] [address] Assigned Heart and Vascular Provider 04/03/22 04/16/22 Diana Desir [facility] 3033 [place] [address] Assigned MTM Pharmacist 04/07/22 Jelena David OD [address] [facility] [place] [address] Assigned Surgical Provider 05/08/22 10/08/22 Galo Burrell MD Assigned Heart and Vascular Provider 04/17/22 06/11/22 Livan Sharif MD [address] [place] 6[address] Cardiovascular Disease 05/14/22 Livan Sharif MD [address] [place] 67[address]45 Assigned Heart and Vascular Provider 06/12/22 07/23/22 Catherine Cm MD [address] [facility] [address] [place] 862675 Cardiovascular Disease 07/21/22 Valery Veronica, PA-C 909 [place], [place] 398695 Physician Scanning Coordinator Dermatology 07/21/22 Catherine Cm MD [address] [place] [address]45 Assigned Heart and Vascular Provider 07/24/22 11/05/22 Johnny Murillo MD [address] [facility] [address] [place], [place] 599334 Assigned Musculoskeletal Provider 08/14/22 10/08/22 Brea Quinn APRN DEPARTMENT STORE SALESPERSON 500 [place], [place] 422855 Nurse Practitioner Dermatology 09/21/22 Brea Quinn APRN DEPARTMENT STORE SALESPERSON 6401 [facility] 364882 Assigned Surgical Provider 10/09/22 05/01/24 [place] [address] [facility] 300 [place] [address] Assigned Musculoskeletal Provider 10/09/22 05/01/24 Livan Sharif MD [address] [facility] [address] [place] [address] Assigned Heart and Vascular Provider 11/06/22 11/12/22 Catherine Cm MD [address] [facility] [address] [place], [place] 414325 Assigned Heart and Vascular Provider 11/13/22 05/27/23 Sydnie Martinez RN Personal Advocate & Liaison (PAL) Family Medicine 03/28/23 07/31/23 Alfonso Renteria MD 5775 [facility] 200 [place], [place] [address]296 Assigned Neuroscience Provider 04/02/23 Chneg Todd PA-C [address] [place] [address] [phone] Assigned PCP 04/30/23 07/15/23 Radha Lomeli APRN DEPARTMENT STORE SALESPERSON 6405 [facility] [address] [place], [place] 9927[address] Assigned Heart and Vascular Provider 05/28/23 Jelena David OD [address] [facility] [place] [address] MD Ophthalmology 06/15/23 Pao Joseph, VJ Personal Advocate & Liaison (PAL) Nurse 08/01/23 11/07/23 Esha Grimm PA-C [address] [place] [phone] Assigned PCP 07/16/23 Valery Veronica PA-C [address] [place] [address] 214325 Physician Scanning Coordinator Dermatology 09/19/23 Rey Tay MD [address] [place] [address] 858115 MD Gastroenterology 09/20/23 Rocky Zepeda DO [address] [place] [address] 831505 Physician Gastroenterology 09/20/23 Philip Dumont MD [address] [place] [address] 874565 Physician Ophthalmology 09/22/23 Meredith Carrera PA-C [address] [place] [address] 465695 Assigned Gastroenterology Provider 11/01/23 Neil Kent MD [address] [address] Dermatology 11/02/23 [place] [address] [place] [address] 882187 Neurological Surgery 12/26/23 Audrey Waite PA-C 500 [place] [address] Physician Scanning Coordinator Dermatology 02/28/24 Valery Veronica PA-C 774076 [address], [place] [address] Physician Scanning Coordinator Dermatology 04/10/24 documented as of this encounter
--- OUTSIDE RECORDS SUMMARY | 2024-05-27 08:52 | XMS_ITS | Encounter Summary ---
Author Organization [facility] Address [address] [place] [address] Care Team Providers Care Software Support Analyst Name Role Phone Lita Oseguera Unavailable Unavailable Marija Edgar APRN FULL STACK ENGINEER Primary Care Provider + Marija Edgar APRN FULL STACK ENGINEER Unavailable [phone] Mynor Broussard MD Unavailable [phone] Keisha Dotson MD Unavailable [phone] Galo Burrell MD Unavailable Unavailable Diana Desir [facility] Unavailable Rain Galaviz PA-C Unavailable Summer Lara MD Unavailable [phone] Tavia Wyatt MD Unavailable Unavailable Johnny Murillo MD Unavailable Erica Farrell APRN FULL STACK ENGINEER Unavailable Teresita Bean [facility] Unavailable [phone] Tavia Wyatt MD Unavailable Unavailable Diana Desir [facility] Unavailable [phone] Rich Barrett MD Unavailable Neil Kent MD Unavailable Roney StoryM Unavailable [phone] Erica Farrell OPTICAL MECHANIC FULL STACK ENGINEER Unavailable Diana Desir [facility] Unavailable [phone] Jelena David OD Unavailable [phone] Galo Burrell MD Unavailable Unavailable Livan Sharif MD Unavailable Livan Sharif MD Unavailable + Catherine Cm MD Unavailable + Valery Veronica PA-C Unavailable [phone] Catherine Cm MD Unavailable + Johnny Murillo MD Unavailable [phone] Brea Quinn OPTICAL MECHANIC FULL STACK ENGINEER Unavailable [phone] Brea Quinn OPTICAL MECHANIC FULL STACK ENGINEER Unavailable [phone] Jose Francisco Johnson MD Unavailable Livan Sharif MD Unavailable + IsCatherine hobbs MD Unavailable + Sydnie Martinez RN Unavailable Unavailable Alfonso Renteria MD Unavailable + [phone] Esha Grimm PA-C Primary Care Provider Cheng Todd PA-C Unavailable Radha Lomeli OPTICAL MECHANIC FULL STACK ENGINEER Unavailable [phone] Jelena David OD Unavailable Pao Joseph RN Unavailable Unavailable Esha Grimm PA-C Unavailable [phone] Valery Veronica PA-C Unavailable [phone] Rey Tay MD Unavailable Rocky Zepeda DO Unavailable Philip Dumont MD Unavailable [phone] Meredith CarreraC Unavailable [phone] Neil Kent MD Unavailable Juan Pablo Emmanuel MD Unavailable [phone] Ravindra Audreybere DOWC Unavailable [phone] Valery VeronicaC Unavailable [phone] Encounter Details Date Type Department Care Team [...] 04/02/2021 [facility] Occupat ional [facility] [place] - Occupational Stress Questionnaire Answer Date [...] in a prison (including now)? No 08/11/2020 [place] Depression Scale Answer Date Recorded [place] Depression Score 5 01/14/2021 Last EPDS Self Harm Result Not on file 01/14 Education Answer Date Recorded What is the highest level of school you have completed or the highest degree you have received? 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 FOUNDATION RELATIONS MANAGER Gender Identity Female 03/02/2021 5:45 PM CDT Sexual Orientation Straight 02/28/2020 12 :51 AM CDT COVID-19 Exposure Response Date Recorded In the last month, have you been in contact with someone who was confirmed or suspected to have Coronavirus / COVID-19? No / Unsure 08/03/2021 2:24 PM FOUNDATION RELATIONS MANAGER documented as of this encounter Plan of Treatment Upcoming Encounters Date Type Department Care Team (Late st Contact Info) Description 05/31/2024 8:40 AM FOUNDATION RELATIONS MANAGER Therapy Visit [facility] [address] [place] [phone] Ingris Thompson, PT [facility] [address] [place] [address] 05/31/2024 3:30 PM FOUNDATION RELATIONS MANAGER Office Visit [facility] [address] [phone] Audrey Díaz, Herminia Koo MD [address] [place] [address] [phone] 06/04/2024 3:30 PM FOUNDATION RELATIONS MANAGER Office Visit [address] [place] [phone] [place], [place] [address] [place] [address] 06/11/2024 10:30 AM FOUNDATION RELATIONS MANAGER Appointment [facility] Res[facility] [address] [place] [phone] Spec, Nurse Only Med 06/18/2024 2:50 PM FOUNDATION RELATIONS MANAGER Therapy Visit [facility] [address] [place] [phone] Ingris Thompson, PT [facility] [address] [facility] [address] [place], [place] 8[address] 06/21/2024 2:00 PM FOUNDATION RELATIONS MANAGER Office Visit [facility] [place] [address] [facility], [address] [place] [phone] [place] [address] [place], [place] 822047 Johnny Penn MD 6596 [place], [place] [address]725 06/25/2024 8:30 AM FOUNDATION RELATIONS MANAGER Office Visit [address] [phone] Valery Veronica PA-C [address] [place] [address] 028375 11/28/2024 7:45 AM CDT Virtual Visit [facility] [address] 4th [place] [phone] Meredith Carrera PA-C [address] [place] [address] [phone] documented as of this encounter Visit Diagnoses Not on filedocumented in this encounter Additional Health Concerns Infection Onset Date Last Indicated Resolved Time COVID-19 07/18/2021 07/18/2021 08/08/2021 11:3 9 PM FOUNDATION RELATIONS MANAGER Rule Out COVID-19 12/18/2021 12/18/2021 12/19/2021 11:34 AM CDT Rule Out COVID-19 02/24/2022 02/24/2022 02/25/2022 1:08 PM CDT Rule Out COVID-19 04/26/2022 04/26/2022 04/26/2022 6:47 AM CDT Rule Out COVID-19 05/17/2022 05/17/2022 05/17/2022 10:20 PM FOUNDATION RELATIONS MANAGER Rule Out COVID-19 06/09/2022 06/09/2022 06/09/2022 9:35 AM FOUNDATION RELATIONS MANAGER COVID-19 06/09/2022 06/09/2022 06/30/2022 11:4 1 PM FOUNDATION RELATIONS MANAGER Rule Out COVID-19 11/10/2022 11/10/2022 11/11/2022 12:17 PM CDT Rule Out COVID-19 03/07/2023 03/07/2023 03/07/2023 1:20 PM CDT Rule Out COVID-19 12/26/2023 12/26/2023 12/26/2023 9:50 AM CDT Rule Out COVID-19 04/09/2024 04/09/2024 04/10/2024 6:48 PM CDT Assessment Noted Time PHQ-9 Depression Total Score: 2 04/02/20 21 10:19 AM CDT documented as of this encounter Care Teams Software Support Analyst Relationship Specialty Start Date End Date Marija Edgar APRN CNP PCP - General Nurse Practitioner 04/30/20 04/14/23 Esha Grimm PA-C [address] [place] [phone] PCP - General Family Medicine 05/04/23 Lita Oseguera Personal Advocate & Liaison (PAL) 02/28/20 03/27/23 Marija Edgar APRN CNP Assigned PCP 06/08/20 04/29/23 Mynor Broussard MD [address] [facility] [place] [address] [place] [address] Assigned Surgical Provider 06/01/20 11/28/21 Keisha Dotson MD 909 [place] [address] Assigned Neuroscience Provider 06/04/20 04/01/23 Galo Burrell MD Assigned Heart and Vascular Provider 10/05/20 04/02/22 Diana Desir, [facility] [address] [place] [address] Pharmacist Pharmacist 04/17/21 Rain Galaviz PA-C [address] [facility] [address] [place] [address] Physician Clinical Unit Educator Dermatology 04/28/21 Summer Lara MD [address] [place], [place] 990[address] Assigned OBGYN Provider 05/31/21 9/ 2 Tavia Wyatt MD [address] [place] [address] Dermatology 07/14/21 Johnny Murillo MD [address] [place] [address] Assigned Musculoskeletal Provider 08/30/21 03/17/22 Erica Farrell APRN FULL STACK ENGINEER [address] [facility] [address] [place] [address] Nurse Practitioner Cardiovascular Disease 09/09/21 Teresita Bean, [facility] [address] [place] [address] Pharmacist Pharmacist 09/24/21 09/29/21 Tavia Wyatt MD Assigned Surgical Provider 11/29/21 05/07/22 Diana Desir, [facility] [address] [place] [address] Assigned MTM Pharmacist 01/02/22 Rich Barrett MD [address] [facility] [address] [place] [address] Physician Ophthalmology 01/21/22 Neil Kent MD 500 [place], [place] 739665 Dermatology 02/24/22 Roney Story DPM [address] [facility] [address] [place], [place] 410457 Assigned Musculoskeletal Provider 03/20/22 08/13/22 Erica Farrell APRN FULL STACK ENGINEER 1700 [place] [address] Assigned Heart and Vascular Provider 04/03/22 04/16/22 Diana Desir, [facility] [address] [place], [place] 665616 Assigned MTM Pharmacist 04/07/22 Jelena David OD [address] [facility] [place] [address] Assigned Surgical Provider 05/08/22 10/08/22 Galo Burrell MD Assigned Heart and Vascular Provider 04/17/22 06/11/22 Livan Sharif MD [address] [place], [place] 290[address] Cardiovascular Disease 05/14/22 Livan Sharif MD [address] [place] [address] Assigned Heart and Vascular Provider 06/12/22 07/23/22 Catherine Cm MD [address] [place] 761575 Cardiovascular Disease 07/21/22 Valery Veronica PAUcheC 909 [place], [place] 162645 Physician Clinical Unit Educator Dermatology 07/21/22 Catherine Cm MD [address] [place] [address] Assigned Heart and Vascular Provider 07/24/22 11/05/22 Johnny Murillo MD [address] [facility] [address] [place] [address] Assigned Musculoskeletal Provider 08/14/22 10/08/22 Brea Quinn APRN FULL STACK ENGINEER 500 [place], [place] 114155 Nurse Practitioner Dermatology 09/21/22 Brea Quinn APRN FULL STACK ENGINEER [address] [facility] [place] 114312 Assigned Surgical Provider 10/09/22 05/01/24 [place] [address] [facility] [address] [place], [place] 293777 Assigned Musculoskeletal Provider 10/09/22 05/01/24 Livan Sharif MD [address], [facility] [address] [place], [place] 902365 Assigned Heart and Vascular Provider 11/06/22 11/12/22 Catherine Cm MD [address] [facility] [address] [place], [place] 869035 Assigned Heart and Vascular Provider 11/13/22 05/27/23 Sydnie Martinez, RN Personal Advocate & Liaison (PAL) Family Medicine 03/28/23 07/31/23 Alfonso Renteria MD [address] [facility] 200 [place], [place] 745076 Assigned Neuroscience Provider 04/02/23 Cheng Todd PA-C [address] [place] [address] [id number] Assigned PCP 04/30/23 07/15/23 Lomeli Radha ARLENE Stovall FULL STACK ENGINEER [address] [facility] [address] [place], [place] 503325 Assigned Heart and Vascular Provider 05/28/23 Jelena David OD [address] [place] [address] MD Ophthalmology 06/15/23 Pao Joseph, VJ Personal Advocate & Liaison (PAL) Nurse 08/01/23 11/07/23 Esha Grimm PA-C [address] [place] [phone] Assigned PCP 07/16/23 Valery Veronica PA-C [address] [place] [address] 106215 Physician Clinical Unit Educator Dermatology 09/19/23 Rey Tay MD [address] [place] [address] 940335 Gastroenterology 09/20/23 Rocky Zepeda DO [address] [place] [address] 115465 Physician Gastroenterology 09/20/23 Philip Dumont MD [address] [place] [address] 391255 Physician Ophthalmology 09/22/23 Meredith Carrera PA-C 909 [place] [address] Assigned Gastroenterology Provider 11/01/23 Neil Kent MD [address] [place] [address] Dermatology 11/02/23 [place] [address] [address] Neurological Surgery 12/26/23 Audrey Waite PA-C 500 [place] [address] Physician Clinical Unit Educator Dermatology 02/28/24 Valery Veronica PA-C [address] [place] [address] Physician Clinical Unit Educator Dermatology 04/10/24 documented as of this encounter
--- OUTSIDE RECORDS SUMMARY | 2024-05-27 08:52 | XMS_ITS | Encounter Summary ---
Author Organization [facility] Address [address] [place] [address] Care Team Providers Care Robotics Technician Name Role Phone Lita Oseguera Unavailable Unavailable Marija Edgar APRN SPRAY CEMENTER Primary Care Provider + Marija Edgar APRN SPRAY CEMENTER Unavailable [phone] Mynor Broussard MD Unavailable [phone] Keisha Dotson MD Unavailable Galo Burrell MD Unavailable Unavailable Diana Desir [facility] Unavailable Rain Galaviz PA-C Unavailable [phone] Summer Lara MD Unavailable [phone] Tavia Wyatt MD Unavailable Unavailable Johnny Murillo MD Unavailable Erica Farrell APRN SPRAY CEMENTER Unavailable Teresita Bean [facility] Unavailable Tavia Wyatt MD Unavailable Unavailable Diana Desir [facility] Unavailable Rich Barrett MD Unavailable Neil Kent MD Unavailable Roney StoryM Unavailable [phone] Erica Farrell WELDING MACHINE OPERATOR PLASMA ARC SPRAY CEMENTER Unavailable Diana Desir [facility] Unavailable [phone] Jelena David OD Unavailable [phone] Galo Burrell MD Unavailable Unavailable Livan Sharif MD Unavailable Livan Sharif MD Unavailable + Catherine Cm MD Unavailable + Valery Veronica PA-C Unavailable [phone] Catherine Cm MD Unavailable + Johnny Murillo MD Unavailable [phone] Brea Quinn WELDING MACHINE OPERATOR PLASMA ARC SPRAY CEMENTER Unavailable [phone] Brea Quinn WELDING MACHINE OPERATOR PLASMA ARC SPRAY CEMENTER Unavailable [phone] Jose Francisco Johnson MD Unavailable Livan Sharif MD Unavailable + IsCatherine hobbs MD Unavailable + Sydnie Martinez RN Unavailable Unavailable Alfonso Renteria MD Unavailable + [phone] Esha Grimm PA-C Primary Care Provider Cheng Todd PA-C Unavailable Radha Lomeli WELDING MACHINE OPERATOR PLASMA ARC SPRAY CEMENTER Unavailable [phone] Jelena David OD Unavailable Pao Joseph RN Unavailable Unavailable Esha Grimm PA-C Unavailable [phone] Valery Veronica PA-C Unavailable [phone] Rey Tay MD Unavailable Rocky Zepeda DO Unavailable Philip Dumont MD Unavailable [phone] LorerianaMeredithC Unavailable [phone] Neil Kent MD Unavailable Juan Pablo Emmanuel MD Unavailable [phone] Brooksdelmy Audreybere DOWC Unavailable [phone] Valery VeronicaC Unavailable [phone] Encounter Details Date Type Department Care Team (Late st Contact Info) Description 08/04/[address] [address] Bob Diop Social History Tobacco [...] do you attend [facility] or episcopal services? More than 4 times [...] Answer Date Recorded PHQ-2 Score 0 04/02/2021 [facility] of Occupat ional [...] in a retirement (including now)? No 08/11/2020 [place] Depression Scale Answer Date Recorded [place] [...] PM CDT Legal Sex Female 4:13 AM DINING SERVER Gender Identity Female 03/02/2021 5:45 PM CDT Sexual Orientation Straight 02/28/2020 12 :51 AM CDT COVID-19 Exposure Response Date Recorded In the last month, have you been in contact with someone who was confirmed or suspected to have Coronavirus / COVID-19? No / Unsure 08/03/2021 2:24 PM DINING SERVER documented as of this encounter Plan of Treatment Upcoming Encounters Date Type Department Care Team (Late st Contact Info) Description 05/31/2024 8:40 AM DINING SERVER Therapy Visit [facility] [address] [place] [phone] Ingris Thompson, PT [facility] [address] [place] [address] 106 [place] [address] 05/31/2024 3:30 PM DINING SERVER Office Visit [facility] Specialty [address] [phone] Audrey Díaz, Herminia Koo MD [address] [place] [address] 06/04/2024 3:30 PM DINING SERVER Office Visit [facility] [address] [facility] [address] [place] [address] Jelena David, [place] [address] [facility] [place] [address] 06/11/2024 10:30 AM DINING SERVER Appointment [facility] Respiratory Therapy [address] [place] [phone] Spec, Nurse Only Med 06/18/2024 2:50 PM DINING SERVER Therapy Visit [facility] [address] [place] [phone] Ingris Thompson, PT [facility] [address] [facility] 106 [place] [address] 06/21/2024 2:00 PM DINING SERVER Office Visit [facility] Neurology [facility] [address] [place] [address], [address] [place] [phone] [place] [address] [address] [place] 125317 Johnny Penn MD 2123 [place], [place] 022915 06/25/2024 8:30 AM DINING SERVER Office Visit [address] [address] Valery Veronica, PA-C [address] [place] [address] 478595 11/28/2024 7:45 AM CDT Virtual Visit [facility] Gastroenterology [place] 090919 [facility] 4th [place] [phone] Meredith Carrera PA-C 9 [place] [address] documented as of this encounter Visit Diagnoses Not on filedocumented in this encounter Additional Health Concerns Infection Onset Date Last Indicated Resolved Time COVID-19 07/18/2021 07/18/2021 08/08/2021 11:3 9 PM DINING SERVER Rule Out COVID-19 12/18/2021 12/18/2021 12/19/2021 11:34 AM CDT Rule Out COVID-19 02/24/2022 02/24/2022 02/25/2022 1:08 PM CDT Rule Out COVID-19 04/26/2022 04/26/2022 04/26/2022 6:47 AM CDT Rule Out COVID-19 05/17/2022 05/17/2022 05/17/2022 10:20 PM DINING SERVER Rule Out COVID-19 06/09/2022 06/09/2022 06/09/2022 9:35 AM DINING SERVER COVID-19 06/09/2022 06/09/2022 06/30/2022 11:4 1 PM DINING SERVER Rule Out COVID-19 11/10/2022 11/10/2022 11/11/2022 12:17 PM CDT Rule Out COVID-19 03/07/2023 03/07/2023 03/07/2023 1:20 PM CDT Rule Out COVID-19 12/26/2023 12/26/2023 12/26/2023 9:50 AM CDT Rule Out COVID-19 04/09/2024 04/09/2024 04/10/2024 6:48 PM CDT Assessment Noted Time PHQ-9 Depression Total Score: 2 04/02/20 21 10:19 AM CDT documented as of this encounter Care Teams Robotics Technician Relationship Specialty Start Date End Date Marija Edgar APRN CNP PCP - General Nurse Practitioner 04/30/20 04/14/23 Esha Grimm PA-C [address] [place] [address] PCP - General Family Medicine 05/04/23 Lita Oseguera Personal Advocate & Liaison (PAL) 02/28/20 03/27/23 Marija Edgar APRN SPRAY CEMENTER Assigned PCP 06/08/20 04/29/23 Mynor Broussard MD [address] [phone] Assigned Surgical Provider 06/01/20 11/28/21 Keisha Dotson MD 909 [place], [place] 857975 Assigned Neuroscience Provider 06/04/20 04/01/23 Galo Burrell MD Assigned Heart and Vascular Provider 10/05/20 04/02/22 [facility] 3033 [place] [address] Pharmacist Pharmacist 04/17/21 Rain Galaviz PA-C [address] [place] [address] [address] [place] [address] Physician Director Post Dermatology 04/28/21 Summer Lara MD [address] [place] [address] Assigned OBGYN Provider 05/31/21 2 Tavia Wyatt MD [address] [place] [address] [place] [address] Dermatology 07/14/21 Johnny Murillo MD [address] [place] [address] Assigned Musculoskeletal Provider 08/30/21 03/17/22 Erica Farrell APRN SPRAY CEMENTER [address] [facility] [address] [place] [address] Nurse Practitioner Cardiovascular Disease 09/09/21 Teresita Bean, [facility] [address] [place], [place] [phone] Pharmacist Pharmacist 09/24/21 09/29/21 Tavia Wyatt MD Assigned Surgical Provider 11/29/21 05/07/22 [facility] 3033 [place] [address] Assigned MTM Pharmacist 01/02/22 Rich Barrett MD 516 [facility] 9A [place], [place] 30[address] Physician Ophthalmology 01/21/22 Neil Kent MD 500 [place] [address] Dermatology 02/24/22 Roney Story DPM [address] [facility] 300 [place] [address] Assigned Musculoskeletal Provider 03/20/22 08/13/22 Erica Farrell APRN SPRAY CEMENTER 1700 [place] [address] Assigned Heart and Vascular Provider 04/03/22 04/16/22 Diana Desir, [facility] [address] [facility] [place] [place] [address] Assigned MTM Pharmacist 04/07/22 Jelena David OD [address] [facility] [place] [address] Assigned Surgical Provider 05/08/22 10/08/22 Galo Burrell MD Assigned Heart and Vascular Provider 04/17/22 06/11/22 Livan Sharif MD [address] [place] [address] Cardiovascular Disease 05/14/22 Livan Sharif MD [address] [place] [address] Assigned Heart and Vascular Provider 06/12/22 07/23/22 Catherine Cm MD [address] [place] [address] Cardiovascular Disease 07/21/22 Valery Veronica PAUcheC 9 [place] [address] Physician Director Post Dermatology 07/21/22 Catherine Cm MD [address] [place] [address] Assigned Heart and Vascular Provider 07/24/22 11/05/22 Johnny Murillo MD Formerly named [facility] [place] [address] [place] [address] Assigned Musculoskeletal Provider 08/14/22 10/08/22 Brea Quinn APRN SPRAY CEMENTER 500 [place] [address] Nurse Practitioner Dermatology 09/21/22 Brea Quinn APRN SPRAY CEMENTER 6401 [facility] [place] [address] Assigned Surgical Provider 10/09/22 05/01/24 [place] [address] [address] [facility] 300 [place] [address] Assigned Musculoskeletal Provider 10/09/22 05/01/24 Livan Sharif MD [address], [facility] [address] [place] [address] Assigned Heart and Vascular Provider 11/06/22 11/12/22 Catherine Cm MD [address] [facility] [address] [place] [address] Assigned Heart and Vascular Provider 11/13/22 05/27/23 Sydnie Martinez, RN Personal Advocate & Liaison (PAL) Family Medicine 03/28/23 07/31/23 Alfonso Renteria MD 5775 [facility] 200 [place] [address] Assigned Neuroscience Provider 04/02/23 Cheng Todd PA-C [address] [place] [address] Assigned PCP 04/30/23 07/15/23 Radha Lomeli APRN SPRAY CEMENTER 6405 [facility] [address] [place] [address] Assigned Heart and Vascular Provider 05/28/23 Jelena David OD [address] [facility] [place] [address] MD Ophthalmology 06/15/23 Pao Joseph, VJ Personal Advocate & Liaison (PAL) Nurse 08/01/23 11/07/23 Esha Grimm PA-C [address] [place] [address]38[address] Assigned PCP 07/16/23 Valery Veronica PA-C [address] [place] [address] Physician Director Post Dermatology 09/19/23 Rey Tay MD [address] [place] [address] Gastroenterology 09/20/23 Rocky Zepeda DO [address] [place] [address] 190815 Physician Gastroenterology 09/20/23 Philip Dumont MD [address] [place] [address] Physician Ophthalmology 09/22/23 Meredith Carrera PA-C [address] [place] [address] Assigned Gastroenterology Provider 11/01/23 Neil Kent MD [address] [address] Dermatology 11/02/23 [place] [address] [place] [address] [address] Neurological Surgery 12/26/23 Audrey Waite PA-C [address] [place] [address] Physician Director Post Dermatology 02/28/24 Valery Veronica PA-C 413629 [place], [place] [address] Physician Director Post Dermatology 04/10/24 documented as of this encounter
--- OUTSIDE RECORDS SUMMARY | 2024-05-27 08:52 | XMS_ITS | Encounter Summary ---
Author Organization [facility] Address [address] [place] [address] Care Team Providers Care Trading Assistant Name Role Phone Lita Oseguera Unavailable Unavailable Marija Edgar APRN POWER PRESS SUPERVISOR Primary Care Provider + Marija Edgar APRN POWER PRESS SUPERVISOR Unavailable [phone] Mynor Broussard MD Unavailable [phone] Keisha Dotson MD Unavailable Galo Burrell MD Unavailable Unavailable Diana Desir [facility] Unavailable Rain Galaviz PA-C Unavailable [phone] Summer Lara MD Unavailable [phone] Tavia Wyatt MD Unavailable Unavailable Johnny Murillo MD Unavailable Erica Farrell APRN POWER PRESS SUPERVISOR Unavailable Teresita Bean [facility] Unavailable Tavia Wyatt MD Unavailable Unavailable Diana Desir [facility] Unavailable Rich Barrett MD Unavailable Neil Kent MD Unavailable Roney StoryM Unavailable [phone] Erica Farrell CHANGE CONSULTANT POWER PRESS SUPERVISOR Unavailable Diana Desir [facility] Unavailable [phone] Jelena David OD Unavailable [phone] Galo Burrell MD Unavailable Unavailable Livan Sharif MD Unavailable Livan Sharif MD Unavailable + Catherine Cm MD Unavailable + Valery Veronica PA-C Unavailable [phone] Catherine Cm MD Unavailable + Johnny Murillo MD Unavailable [phone] rBea Quinn CHANGE CONSULTANT POWER PRESS SUPERVISOR Unavailable [phone] Brea Quinn CHANGE CONSULTANT POWER PRESS SUPERVISOR Unavailable [phone] Jose Francisco Johnson MD Unavailable Livan Sharif MD Unavailable + IsCatherine hobbs MD Unavailable + Sydnie Martinez RN Unavailable Unavailable Alfonso Renteria MD Unavailable + [phone] Esha Grimm PA-C Primary Care Provider Cheng Todd PA-C Unavailable Radha Lomeli CHANGE CONSULTANT POWER PRESS SUPERVISOR Unavailable [phone] Jelena David OD Unavailable Pao Joseph RN Unavailable Unavailable Esha Grimm PA-C Unavailable [phone] Valery Veronica PA-C Unavailable [phone] Rey Tay MD Unavailable Rocky Zepeda DO Unavailable Philip Dumont MD Unavailable [phone] LorerianaMeredithC Unavailable [phone] Neil Kent MD Unavailable Juan Pablo Emmanuel MD Unavailable Audrey WaiteC Unavailable [phone] Valery VeronicaC Unavailable [phone] Encounter Details Date Type Department Care Team (Late st Contact Info) Description 09/02/2021 MyC Medical Advice [address] [address] Diana Desir, [facility] [address] [place] [address] Social History Tobacco Use Types Packs/Day Years [...] you attend [facility] or mormon services? More than 4 [...] Answer Date Recorded PHQ-2 Score 0 04/02/2021 [facility] - [...] a long term (including now)? No 08/11/2020 Menlo Depression Scale Answer Date Recorded Menlo Depression Score 5 01/14/2021 Last EPDS Self Harm Result Not on file 01/14 Education Answer Date Recorded What is the highest level of school you have completed or the highest degree you have received? 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 KNOCKER OFF Gender Identity Female 03/02/2021 5:45 PM CDT Sexual Orientation Straight 02/28/2020 12 :51 AM CDT COVID-19 Exposure Response Date Recorded In the last month, have you been in contact with someone who was confirmed or suspected to have Coronavirus / COVID-19? No / Unsure 09/02/2021 12:26 PM KNOCKER OFF documented as of this encounter Plan of Treatment Upcoming Encounters Date Type Department Care Team (Late st Contact Info) Description 05/31/2024 8:40 AM KNOCKER OFF Therapy Visit [facility] [address] [place] [phone] Ingris Thompson, PT [facility] [address] [place] [address] [id number] 05/31/2024 3:30 PM KNOCKER OFF Office Visit [facility] [address] [phone] Audrey Díaz, Herminia Koo MD [address] [place] [address] 06/04/2024 3:30 PM KNOCKER OFF Office Visit [facility] Hussain [address] [facility] [address] [place] [phone] Frankie Jelena Garcia, OD [address] [facility] [place] [address] 06/11/2024 10:30 AM KNOCKER OFF Appointment [facility] Respiratory Therapy [address] [place] [phone] Spec, Nurse Only Med 06/18/2024 2:50 PM KNOCKER OFF Therapy Visit [facility] [place] [address] [place] [address] [address] [place] [phone] Ingris Thompson, PT [facility] 6 [facility] 106 [place], [place] 3869[address] 06/21/2024 2:00 PM KNOCKER OFF Office Visit [facility] [place] [address] [place] [address], [address] [place] [phone] [place] [address] [place], [place] [phone] Johnny Penn MD 6318 [facility] [address] [facility] [place] [address] 06/25/2024 8:30 AM KNOCKER OFF Office Visit [address] [phone] Valery Veronica PAUcheC 909 [place] [address] 11/28/2024 7:45 AM CDT Virtual Visit [facility] Gastroenterology Clinic [address] 4th [place] [address] Meredith Carrera PA-C [address] [place] [address] documented as of this encounter Visit Diagnoses Not on filedocumented in this encounter Additional Health Concerns Infection Onset Date Last Indicated Resolved Time Rule Out COVID-19 12/18/2021 12/18/2021 12/19/2021 11:34 AM CDT Rule Out COVID-19 02/24/2022 02/24/2022 02/25/2022 1:08 PM CDT Rule Out COVID-19 04/26/2022 04/26/2022 04/26/2022 6:47 AM CDT Rule Out COVID-19 05/17/2022 05/17/2022 05/17/2022 10:20 PM KNOCKER OFF Rule Out COVID-19 06/09/2022 06/09/2022 06/09/2022 9:35 AM KNOCKER OFF COVID-19 06/09/2022 06/09/2022 06/30/2022 11:4 1 PM KNOCKER OFF Rule Out COVID-19 11/10/2022 11/10/2022 11/11/2022 12:17 PM CDT Rule Out COVID-19 03/07/2023 03/07/2023 03/07/2023 1:20 PM CDT Rule Out COVID-19 12/26/2023 12/26/2023 12/26/2023 9:50 AM CDT Rule Out COVID-19 04/09/2024 04/09/2024 04/10/2024 6:48 PM CDT Assessment Noted Time PHQ-9 Depression Total Score: 2 04/02/20 21 10:19 AM CDT documented as of this encounter Care Teams Trading Assistant Relationship Specialty Start Date End Date Marija Edgar APRN CNP PCP - General Nurse Practitioner 04/30/20 04/14/23 Esha Grimm PA-C [address] [place] [address] PCP - General Family Medicine 05/04/23 Lita Oseguera Personal Advocate & Liaison (PAL) 02/28/20 03/27/23 Marija Edgar APRN POWER PRESS SUPERVISOR Assigned PCP 06/08/20 04/29/23 Mynor Broussard MD 6363 [facility] 500 [place], [place] [address] Assigned Surgical Provider 06/01/20 11/28/21 Keisha Dotson MD 909 [place], [place] 834115 Assigned Neuroscience Provider 06/04/20 04/01/23 Galo Burrell MD Assigned Heart and Vascular Provider 10/05/20 04/02/22 Diana Desir, [facility] [address] [place] [address] Pharmacist Pharmacist 04/17/21 Rain Galaviz PA-C [address] [facility] [address] [place] [address] Physician Fixer Boarding Room Dermatology 04/28/21 Summer Lara MD [address] [place] [address] Assigned OBGYN Provider 05/31/21 2 Tavia Wyatt MD [address] [place] [address] Dermatology 07/14/21 Johnny Murillo MD [address] [place] [address] Assigned Musculoskeletal Provider 08/30/21 03/17/22 Erica Farrell APRN POWER PRESS SUPERVISOR [address] [place] [address] Nurse Practitioner Cardiovascular Disease 09/09/21 Teresita Bean, [facility] [address] [facility] [place] [address] Pharmacist Pharmacist 09/24/21 09/29/21 Tavia Wyatt MD Assigned Surgical Provider 11/29/21 05/07/22 [facility] [address] [place] [address] Assigned MTM Pharmacist 01/02/22 Rich Barrett MD 516 [facility] 9A [place] [address] Physician Ophthalmology 01/21/22 Neil Kent MD 500 [place] [address] Dermatology 02/24/22 [place] Story DPM [address] [facility] 300 [place] [address] Assigned Musculoskeletal Provider 03/20/22 08/13/22 Erica Farrell APRN POWER PRESS SUPERVISOR 1700 [place] [address] Assigned Heart and Vascular Provider 04/03/22 04/16/22 Diana Desir, [facility] [address] [place] [address] Assigned MTM Pharmacist 04/07/22 Jelena David OD [address] [facility] [place] [address] Assigned Surgical Provider 05/08/22 10/08/22 Galo Burrell MD Assigned Heart and Vascular Provider 04/17/22 06/11/22 Livan Sharif MD [address] [place] [address] Cardiovascular Disease 05/14/22 Livan Sharif MD [address] [place] [address] Assigned Heart and Vascular Provider 06/12/22 07/23/22 Catherine Cm MD [address] [place] [address] Cardiovascular Disease 07/21/22 Valery Veronica, PA-C 909 [place] [address] Physician Fixer Boarding Room Dermatology 07/21/22 Catherine Cm MD [address] [place] [address] Assigned Heart and Vascular Provider 07/24/22 11/05/22 Johnny Murillo MD [address] [place] [address] Assigned Musculoskeletal Provider 08/14/22 10/08/22 Brea Quinn APRN POWER PRESS SUPERVISOR 500 [place] [address] Nurse Practitioner Dermatology 09/21/22 Brea Quinn APRN POWER PRESS SUPERVISOR 6401 [facility] [place] [address] Assigned Surgical Provider 10/09/22 05/01/24 [place] [address] [facility] 300 [place] [address] Assigned Musculoskeletal Provider 10/09/22 05/01/24 Livan Sharif MD [address] [facility] [address] [place] [address] Assigned Heart and Vascular Provider 11/06/22 11/12/22 Catherine Cm MD [address] [facility] [address] [place], [place] [address] Assigned Heart and Vascular Provider 11/13/22 05/27/23 Sydnie Martinez RN Personal Advocate & Liaison (PAL) Family Medicine 03/28/23 07/31/23 Alfonso Renteria MD 5775 [facility] 200 [place] [address] Assigned Neuroscience Provider 04/02/23 Cheng Todd PA-C [address] [place] [address] Assigned PCP 04/30/23 07/15/23 Radha Lomeli APRN POWER PRESS SUPERVISOR 6405 [facility] [address] [place] [address] Assigned Heart and Vascular Provider 05/28/23 Jelena David OD [address] [facility] [place] [address] Ophthalmology 06/15/23 Pao Joseph, VJ Personal Advocate & Liaison (PAL) Nurse 08/01/23 11/07/23 Esha Grimm PA-C [address] [place] [address] Assigned PCP 07/16/23 Valery Veronica PA-C [address] [place] [address] 529535 Physician Fixer Boarding Room Dermatology 09/19/23 Rey Tay MD [address] [place] [address] Gastroenterology 09/20/23 Rocky Zpeeda DO [address] [place] [address] 750165 Physician Gastroenterology 09/20/23 Philip Dumont MD [address] [place] [address] Physician Ophthalmology 09/22/23 Meredith Carrera PA-C [address] [place] [address] Assigned Gastroenterology Provider 11/01/23 Neil Kent MD [address] [address] Dermatology 11/02/23 [place] [address] [address] Neurological Surgery 12/26/23 Audrey Waite PA-C [address] [place] [address] Physician Fixer Boarding Room Dermatology 02/28/24 Valery Veronica PA-C [address]68 [place] [address] Physician Fixer Boarding Room Dermatology 04/10/24 documented as of this encounter
--- OUTSIDE RECORDS SUMMARY | 2024-05-27 08:52 | XMS_ITS | Encounter Summary ---
Author Organization [place] Address [address] [place] [address] Care Team Providers Care Global Sales Manager Name Role Phone Lita Oseguera Unavailable Unavailable Marija Edgar APRN DRESS FINISHER Primary Care Provider + Marija Edgar APRN DRESS FINISHER Unavailable [phone] Mynor Broussard MD Unavailable [phone] Keisha Dotson MD Unavailable Galo Burrell MD Unavailable Unavailable Diana Desir [facility] Unavailable [phone] Rain Galaviz PA-C Unavailable Summer Lara MD Unavailable [phone] Tavia Wyatt MD Unavailable Unavailable Johnny Murillo MD Unavailable Erica Farrell APRN DRESS FINISHER Unavailable Teresita Bean [facility] Unavailable Tavia Wyatt MD Unavailable Unavailable Diana Desir [facility] Unavailable Rich Barrett MD Unavailable Neil Kent MD Unavailable Roney StoryM Unavailable [phone] Erica Farrell WIDE AREA NETWORK ADMINISTRATOR DRESS FINISHER Unavailable Diana Desir [facility] Unavailable [phone] Jelena David OD Unavailable [phone] Galo Burrell MD Unavailable Unavailable Livan Sharif MD Unavailable Livan Sharif MD Unavailable + Catherine Cm MD Unavailable + Valery Veronica PA-C Unavailable [phone] Catherine Cm MD Unavailable + Johnny Murillo MD Unavailable [phone] Brea Quinn WIDE AREA NETWORK ADMINISTRATOR DRESS FINISHER Unavailable [phone] Brea Quinn WIDE AREA NETWORK ADMINISTRATOR DRESS FINISHER Unavailable [phone] Jose Francisco Johnson MD Unavailable Livan Sharif MD Unavailable + IsCatherine hobbs MD Unavailable + Sydnie Martinez RN Unavailable Unavailable Alfonso Renteria MD Unavailable + [phone] Esha Grimm PA-C Primary Care Provider Cheng Todd PA-C Unavailable Radha Lomeli WIDE AREA NETWORK ADMINISTRATOR DRESS FINISHER Unavailable [phone] Jelena David OD Unavailable Pao Joseph RN Unavailable Unavailable Esha Grimm PA-C Unavailable [phone] Valery Veronica PA-C Unavailable [phone] Rey Tay MD Unavailable Rocky Zepeda DO Unavailable Philip Dumont MD Unavailable [phone] DebiMeredithC Unavailable [phone] Neil Kent MD Unavailable Juan Pablo Emmanuel MD Unavailable [phone] Ravindra Audreybere DOWC Unavailable [phone] Valery VeronicaC Unavailable [phone] Encounter Details Date Type Department Care Team (Late st Contact Info) Description 07/14/2021 MyC Medical Advice [address] [address] Lauren Gan, RN Social History [...] you attend [facility] or pentecostal services? More than 4 times per year [...] 04/02/2021 [facility] - Occupational Stress Questionnaire Answer Date [...] in a chcf (including now)? No 08/11/2020 [place]elsor Depression Scale Answer Date Recorded Pelsor Depression Score 5 01/14/2021 Last EPDS Self Harm Result Not on file 01/14 Education Answer Date Recorded What is the highest level of school you have completed or the highest degree you have received? 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 BOILER MAKER Gender Identity Female 03/02/2021 5:45 PM CDT Sexual Orientation Straight 02/28/2020 12 :51 AM CDT COVID-19 Exposure Response Date Recorded In the last month, have you been in contact with someone who was confirmed or suspected to have Coronavirus / COVID-19? Yes 07/15/2021 12:15 PM BOILER MAKER documented as of this encounter Plan of Treatment Upcoming Encounters Date Type Department Care Team (Late st Contact Info) Description 05/31/2024 8:40 AM BOILER MAKER Therapy Visit [facility] [address] [place] [phone] Ingris Thompson, PT [facility] [address] [place] [address] 106 [place] [address] 05/31/2024 3:30 PM BOILER MAKER Office Visit [facility] Specialty [address] [phone] Audrey Díaz, Herminia Koo MD [address] [place] [address] 06/04/2024 3:30 PM BOILER MAKER Office Visit [facility] [address] [facility] [address] [place] [address] Jelena David, [place] [address] [facility] [place] [address] 06/11/2024 10:30 AM BOILER MAKER Appointment [facility] Respiratory Therapy [address] [place] [phone] Spec, Nurse Only Med 06/18/2024 2:50 PM BOILER MAKER Therapy Visit [facility] [address] [place] [phone] Ingris Thompson, PT [facility] 6 [facility] 106 [place] [address] 06/21/2024 2:00 PM BOILER MAKER Office Visit [facility] Neurology [facility] [address] [place] [address], [address] [place] [phone] [place] [address] [place] [phone] Johnny Penn MD 2355 [place], [place] 026[address] 06/25/2024 8:30 AM BOILER MAKER Office Visit [address] [address] Valery Veronica, PA-C [address] [place] [address] 066045 11/28/2024 7:45 AM CDT Virtual Visit [facility] Gastroenterology [place] 580579 [facility] 4th [place] [phone] Meredith Carrera PA-C 909 [place] [address] documented as of this encounter Visit Diagnoses Not on filedocumented in this encounter Additional Health Concerns Infection Onset Date Last Indicated Resolved Time Rule Out COVID-19 07/13/2021 07/13/2021 07/14/2021 3:04 PM BOILER MAKER Rule Out COVID-19 07/18/2021 07/18/2021 07/20/2021 1:56 PM BOILER MAKER COVID-19 07/18/2021 07/18/2021 08/08/2021 11:3 9 PM BOILER MAKER Rule Out COVID-19 12/18/2021 12/18/2021 12/19/2021 11:34 AM CDT Rule Out COVID-19 02/24/2022 02/24/2022 02/25/2022 1:08 PM CDT Rule Out COVID-19 04/26/2022 04/26/2022 04/26/2022 6:47 AM CDT Rule Out COVID-19 05/17/2022 05/17/2022 05/17/2022 10:20 PM BOILER MAKER Rule Out COVID-19 06/09/2022 06/09/2022 06/09/2022 9:35 AM BOILER MAKER COVID-19 06/09/2022 06/09/2022 06/30/2022 11:4 1 PM BOILER MAKER Rule Out COVID-19 11/10/2022 11/10/2022 11/11/2022 12:17 PM CDT Rule Out COVID-19 03/07/2023 03/07/2023 03/07/2023 1:20 PM CDT Rule Out COVID-19 12/26/2023 12/26/2023 12/26/2023 9:50 AM CDT Rule Out COVID-19 04/09/2024 04/09/2024 04/10/2024 6:48 PM CDT Assessment Noted Time PHQ-9 Depression Total Score: 2 04/02/20 10:19 AM CDT documented as of this encounter Care Teams Global Sales Manager Relationship Specialty Start Date End Date Marija Edgar APRN DRESS FINISHER PCP - General Nurse Practitioner 04/30/20 04/14/23 Esha Grimm PA-C [address] [place] [phone] PCP - General Family Medicine 05/04/23 Lita Oseguera Personal Advocate & Liaison (PAL) 02/28/20 03/27/23 Marija Edgar APRN DRESS FINISHER Assigned PCP 06/08/20 04/29/23 Mynor Broussard MD [address] 498[address] Assigned Surgical Provider 06/01/20 11/28/21 Keisha Dotson MD 909 [place], [place] 158555 Assigned Neuroscience Provider 06/04/20 04/01/23 Galo Burrell MD Assigned Heart and Vascular Provider 10/05/20 04/02/22 [facility] [address] [place] [address] Pharmacist Pharmacist 04/17/21 Rain Galaviz PA-C [address] [facility] [address] [place] [address] Physician Groundskeeping Maintenance Worker Dermatology 04/28/21 Summer Lara MD [address] [place] [address] Assigned OBGYN Provider 05/31/21 9 2 Tavia Wyatt MD [address] [place] [address] Dermatology 07/14/21 Johnny Murillo MD [address] [place] [address] Assigned Musculoskeletal Provider 08/30/21 03/17/22 Erica Farrell APRN DRESS FINISHER 6[address] [facility] [address] [place] [address] Nurse Practitioner Cardiovascular Disease 09/09/21 Teresita Bean, [facility] [address] [place], [place] [phone] Pharmacist Pharmacist 09/24/21 09/29/21 Tavia Wyatt MD Assigned Surgical Provider 11/29/21 05/07/22 Diana Desir, [facility] [address] [place] [address] Assigned MTM Pharmacist 01/02/22 Rich Barrett MD 516 [facility] 9A [place], [place] 87[address] Physician Ophthalmology 01/21/22 Neil Kent MD 500 [place] [address] Dermatology 02/24/22 R[address] [address] [facility] 300 [place] [address] Assigned Musculoskeletal Provider 03/20/22 08/13/22 Erica Farrell APRN DRESS FINISHER 1700 [place] [address] Assigned Heart and Vascular Provider 04/03/22 04/16/22 [facility] 3033 [place] [address] Assigned MTM Pharmacist 04/07/22 Jelena David OD [address] [facility] [id number] Assigned Surgical Provider 05/08/22 10/08/22 Galo Burrell MD Assigned Heart and Vascular Provider 04/17/22 06/11/22 Livan Sharif MD [address] [facility] [address] [place] [id number] Cardiovascular Disease 05/14/22 Livan Sharif MD [address] [facility] [address] [place] [id number] Assigned Heart and Vascular Provider 06/12/22 07/23/22 Catherine Cm MD [address] [place] [id number] Cardiovascular Disease 07/21/22 Valery Veronica, PAUcheC 909 [place], [place] 873485 Physician Groundskeeping Maintenance Worker Dermatology 07/21/22 Catherine Cm MD [address] [place] [id number] [place] [address] Assigned Heart and Vascular Provider 07/24/22 11/05/22 Johnny Murillo MD [address] [place] [address] Assigned Musculoskeletal Provider 08/14/22 10/08/22 Brea Quinn APRN DRESS FINISHER [address] [place] [address] 504475 Nurse Practitioner Dermatology 09/21/22 Brea Quinn APRN DRESS FINISHER [address] [place] [address] Assigned Surgical Provider 10/09/22 05/01/24 [place] [address] [address] Assigned Musculoskeletal Provider 10/09/22 05/01/24 Livan Sharif MD [address] [place] [id number] [place] [address] Assigned Heart and Vascular Provider 11/06/22 11/12/22 Catherine Cm MD 6405 [facility] [address] [place] [address] Assigned Heart and Vascular Provider 11/13/22 05/27/23 Sydnie Martinez, RN Personal Advocate & Liaison (PAL) Family Medicine 03/28/23 07/31/23 Alfonso Renteria MD 5775 [facility] 200 [place] [address] Assigned Neuroscience Provider 04/02/23 Cheng Todd PA-C [address] [place] [address] Assigned PCP 04/30/23 07/15/23 Radha Lomeli APRN DRESS FINISHER [address] [place] 0844100 [place] [address] Assigned Heart and Vascular Provider 05/28/23 Jelena David OD [address] [facility] [place] [id number] Ophthalmology 06/15/23 Pao Joseph, VJ Personal Advocate & Liaison (PAL) Nurse 08/01/23 11/07/23 Esha Grimm PA-C [address] [place] [address] Assigned PCP 07/16/23 Valery Veronica PA-C [address] [place] [address] Physician Groundskeeping Maintenance Worker Dermatology 09/19/23 Rey Tay MD [address] [place] [address] 874375 Gastroenterology 09/20/23 Rocky Zepeda DO [address] [place] [address] Physician Gastroenterology 09/20/23 Philip Dumont MD 6 [place] [address] Physician Ophthalmology 09/22/23 Meredith Carrera PA-C [address] [place] [address] Assigned Gastroenterology Provider 11/01/23 Neil Kent MD [address] [place] [address] 889520 MD Dermatology 11/02/23 [place] [address] 082887 Neurological Surgery 12/26/23 Audrey Waite PA-C [address] [place] [address] 147785 Physician Groundskeeping Maintenance Worker Dermatology 02/28/24 Valery Veronica PA-C [address] [place] [address] Physician Groundskeeping Maintenance Worker Dermatology 04/10/24 documented as of this encounter
--- OUTSIDE RECORDS SUMMARY | 2024-05-27 08:52 | XMS_ITS | Encounter Summary ---
Author Organization [place] Address [address] [place] [address] Care Team Providers Care Business Intelligence Architect Name Role Phone Lita Oseguera Unavailable Unavailable Marija Edgar APRN VEGETABLE TESTER Primary Care Provider + Marija Edgar APRN VEGETABLE TESTER Unavailable [phone] Mynor Broussard MD Unavailable [phone] Keisha Dotson MD Unavailable [phone] Galo Burrell MD Unavailable Unavailable Diana Desir [facility] Unavailable Rain Galaviz PA-C Unavailable Summer Lara MD Unavailable [phone] Tavia Wyatt MD Unavailable Unavailable Johnny Murillo MD Unavailable Erica Farrell APRN VEGETABLE TESTER Unavailable Teresita Bean [facility] Unavailable [phone] Tavia Wyatt MD Unavailable Unavailable Diana Desir [facility] Unavailable Rich Barrett MD Unavailable Neil Kent MD Unavailable Roney StoryM Unavailable [phone] Erica Farrell PLANT SPRAYER VEGETABLE TESTER Unavailable Diana Desir [facility] Unavailable [phone] Jelena David OD Unavailable [phone] Galo Burrell MD Unavailable Unavailable Livan Sharif MD Unavailable Livan Sharif MD Unavailable + Catherine Cm MD Unavailable + Valery Veronica PA-C Unavailable [phone] Catherine Cm MD Unavailable + Johnny Murillo MD Unavailable [phone] Brea Quinn PLANT SPRAYER VEGETABLE TESTER Unavailable [phone] Brea Quinn PLANT SPRAYER VEGETABLE TESTER Unavailable [phone] Jose Francisco Johnson MD Unavailable Livan Sharif MD Unavailable + IsCatherine hobbs MD Unavailable + Sydnie Martinez RN Unavailable Unavailable Alfonso Renteria MD Unavailable + [phone] Esha Grimm PA-C Primary Care Provider Cheng Todd PA-C Unavailable Radha Lomeli PLANT SPRAYER VEGETABLE TESTER Unavailable [phone] Jelena David OD Unavailable Pao Joseph RN Unavailable Unavailable Esha Grimm PA-C Unavailable Valery Veronica PA-C Unavailable [phone] Rey Tay MD Unavailable Rocky Zepeda DO Unavailable Philip Dumont MD Unavailable [phone] Meredith CarreraC Unavailable [phone] Neil Kent MD Unavailable Juan Pablo Emmanuel MD Unavailable Ravindra Audreybere DOWC Unavailable [phone] Valery VeronicaC Unavailable [phone] Encounter Details Date Type Department Care Team (Late st Contact Info) Description 06/25/2021 MyC Medical Advice [address] [address] Diana Desir, [facility] [address] [place] [address] Psoriasis (Primary Dx) Social History Tobacco Use [...] a senior living (including now)? No 08/11/2020 [place] Depression Scale Answer Date Recorded [place] Depression Score 5 01/14/2021 Last EPDS Self Harm Result Not on file 01/14 Education Answer Date Recorded What is the highest level of school you have completed or the highest degree you have received? 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 ORE MINER Gender Identity Female 03/02/2021 5:45 PM CDT Sexual Orientation Straight 02/28/2020 12 :51 AM CDT COVID-19 Exposure Response Date Recorded In the last month, have you been in contact with someone who was confirmed or suspected to have Coronavirus / COVID-19? No / Unsure 06/26/2021 8:28 AM ORE MINER documented as of this encounter Miscellaneous Notes * Telephone Encounter - Diana Desir RPH - 06/26/2021 9:53 AM CST Discussed with PCP and verbal approval for betamethasone cream. Diana Desir, PharmD Medication Therapy Management Provider, [facility] Pager: [phone] MINER documented in this encounter Plan of Treatment Upcoming Encounters Date Type Department Care Team (Late st Contact Info) Description 05/31/2024 8:40 AM ORE MINER Therapy Visit [facility] [address] [address] Ingris Thompson, PT [facility] [address] [place] [address] 106 [place] [address] 05/31/2024 3:30 PM ORE MINER Office Visit [facility] [address] 0[address] [place] [phone] Audrey Díaz, Herminia Koo MD [address] [place] [phone] 06/04/2024 3:30 PM ORE MINER Office Visit [facility] [address] [facility] [address] [place] [phone] Jelena David, [address] [facility] [place] [address] 06/11/2024 10:30 AM ORE MINER Appointment [facility] Res[facility] Therapy [address] [place] [phone] Spec, Nurse Only Med 06/18/2024 2:50 PM ORE MINER Therapy Visit [facility] [address] [place] [phone] Ingris Thompson, PT [facility] [address] [place] [address] 06/21/2024 2:00 PM ORE MINER Office Visit [facility] [place] [address] [facility], [address] [place] [phone] [place] [address] [place] [address] Johnny Penn MD [address] [facility] [place] [phone] 06/25/2024 8:30 AM ORE MINER Office Visit [address] [phone] Valery Veronica PA-C [address] [place] [address] 11/28/2024 7:45 AM CDT Virtual Visit [facility] [address] 4th [place] [phone] Meredith Carrera PA-C [address] [place] [address] [phone] documented as of this encounter Visit Diagnoses Diagnosis Psoriasis- Primary Other psoriasis documented in this encounter Additional Health Concerns Infection Onset Date Last Indicated Resolved Time Rule Out COVID-19 07/13/2021 07/13/2021 07/14/2021 3:04 PM ORE MINER Rule Out COVID-19 07/18/2021 07/18/2021 07/20/2021 1:56 PM ORE MINER COVID-19 07/18/2021 07/18/2021 08/08/2021 11:3 9 PM ORE MINER Rule Out COVID-19 12/18/2021 12/18/2021 12/19/2021 11:34 AM CDT Rule Out COVID-19 02/24/2022 02/24/2022 02/25/2022 1:08 PM CDT Rule Out COVID-19 04/26/2022 04/26/2022 04/26/2022 6:47 AM CDT Rule Out COVID-19 05/17/2022 05/17/2022 05/17/2022 10:20 PM ORE MINER Rule Out COVID-19 06/09/2022 06/09/2022 06/09/2022 9:35 AM ORE MINER COVID-19 06/09/2022 06/09/2022 06/30/2022 11:4 1 PM ORE MINER Rule Out COVID-19 11/10/2022 11/10/2022 11/11/2022 12:17 PM CDT Rule Out COVID-19 03/07/2023 03/07/2023 03/07/2023 1:20 PM CDT Rule Out COVID-19 12/26/2023 12/26/2023 12/26/2023 9:50 AM CDT Rule Out COVID-19 04/09/2024 04/09/2024 04/10/2024 6:48 PM CDT Assessment Noted Time PHQ-9 Depression Total Score: 2 04/02/20 10:19 AM CDT documented as of this encounter Care Teams Business Intelligence Architect Relationship Specialty Start Date End Date Marija Edgar APRN VEGETABLE TESTER PCP - General Nurse Practitioner 04/30/20 04/14/23 Esha Grimm PA-C [address] [place] [phone] PCP - General Family Medicine 05/04/23 Lita Oseguera Personal Advocate & Liaison (PAL) 02/28/20 03/27/23 Marija Edgar APRN VEGETABLE TESTER Assigned PCP 06/08/20 04/29/23 Mynor Broussard MD [address] [address] Assigned Surgical Provider 06/01/20 11/28/21 Keisha Dotson MD 909 [place], [place] 767925 Assigned Neuroscience Provider 06/04/20 04/01/23 Galo Burrell MD Assigned Heart and Vascular Provider 10/05/20 04/02/22 Diana Desir, [facility] [address] [place] [address] Pharmacist Pharmacist 04/17/21 Rain Galaviz PA-C [address] [place] [address] DR [facility] [facility] [place] [address] Physician Backend Tester Dermatology 04/28/21 Summer Lara MD [address] [place], [place] 00[address] Assigned OBGYN Provider 05/31/21 2 Tavia Wyatt MD [address] [place] [address] Dermatology 07/14/21 Johnny Murillo MD [address] [place] [address] Assigned Musculoskeletal Provider 08/30/21 03/17/22 Erica Farrell APRN VEGETABLE TESTER [address] [facility] [address] [place] [address] Nurse Practitioner Cardiovascular Disease 09/09/21 Teresita Bean, [facility] [place] [address] Pharmacist Pharmacist 09/24/21 09/29/21 Tavia Wyatt MD Assigned Surgical Provider 11/29/21 05/07/22 Diana Desir, [facility] [address] [place] [address] Assigned MTM Pharmacist 01/02/22 Rich Barrett MD [address] 0325[address] Physician Ophthalmology 01/21/22 Neil Kent MD [address] [place], [place] 598865 Dermatology 02/24/22 Roney Story DPM [address] [facility] [address] [place], [place] 307[address] Assigned Musculoskeletal Provider 03/20/22 08/13/22 Erica Farrell APRN VEGETABLE TESTER [address] [place] [address] Assigned Heart and Vascular Provider 04/03/22 04/16/22 Diana Desir, [facility] [address] [place], [place] 241176 Assigned MTM Pharmacist 04/07/22 Jelena David OD [address] [facility] [place] [address] Assigned Surgical Provider 05/08/22 10/08/22 Galo Burrell MD Assigned Heart and Vascular Provider 04/17/22 06/11/22 Livan Sharif MD [address] [place] [address] Cardiovascular Disease 05/14/22 Livan Sharif MD [address] [place] [address] Assigned Heart and Vascular Provider 06/12/22 07/23/22 Catherine Cm MD [address] [facility] [place] [address] Cardiovascular Disease 07/21/22 Valery Veronica, PA-C [address] [place] [address] 998115 Physician Backend Tester Dermatology 07/21/22 Catherine Cm MD [address] [facility] [place] [address] Assigned Heart and Vascular Provider 07/24/22 11/05/22 Johnny Murillo MD [address] [place] [address] 175984 Assigned Musculoskeletal Provider 08/14/22 10/08/22 Brea Quinn APRN VEGETABLE TESTER [address] [place] [place] [address] 168935 Nurse Practitioner Dermatology 09/21/22 Brea Quinn APRN VEGETABLE TESTER [address] [place] [address] [place] 402992 Assigned Surgical Provider 10/09/22 05/01/24 [place] [address] RA[address] [place] [address] Assigned Musculoskeletal Provider 10/09/22 05/01/24 Livan Sharif MD [address] [place], [place] 09[address] Assigned Heart and Vascular Provider 11/06/22 11/12/22 Catherine Cm MD [address] [place] [address] Assigned Heart and Vascular Provider 11/13/22 05/27/23 Sydnie Martinez RN Personal Advocate & Liaison (PAL) Family Medicine 03/28/23 07/31/23 Alfonso Renteria MD [address] [facility] [address] [place] [address] Assigned Neuroscience Provider 04/02/23 Cheng Todd PA-C [address] [place] [address] [phone] Assigned PCP 04/30/23 07/15/23 Radha Lomeli APRN VEGETABLE TESTER [address] [place] [address] Assigned Heart and Vascular Provider 05/28/23 Jelena David OD [address] [facility] [place] [address] Ophthalmology 06/15/23 Pao Joseph, VJ Personal Advocate & Liaison (PAL) Nurse 08/01/23 11/07/23 Esha Grimm PAUcheC [address] [place] [address] Assigned PCP 07/16/23 Valery Veronica PA-C 909 [place] [address] Physician Backend Tester Dermatology 09/19/23 Rey Tay MD 909 [place] [address] MD Gastroenterology 09/20/23 Rocky Zepeda DO 500 [place], [place] 406285 Physician Gastroenterology 09/20/23 Philip Dumont MD 6 [place] [address] Physician Ophthalmology 09/22/23 Meredith Carrera PA-C 9 [place] [address] Assigned Gastroenterology Provider 11/01/23 Neil Kent MD [address] [place] [address] Dermatology 11/02/23 [place] [address] [address] 523277 Neurological Surgery 12/26/23 Audrey Waite PA-C 500 [place] [address] Physician Backend Tester Dermatology 02/28/24 Valery Veronica PA-C [id number] [address] [place] [address] Physician Backend Tester Dermatology 04/10/24 documented as of this encounter
--- OUTSIDE RECORDS SUMMARY | 2024-05-27 08:52 | XMS_ITS | Encounter Summary ---
Author Organization [place] Address [address] [place] [address] Care Team Providers Care Track Broom Operator Name Role Phone Lita Oseguera Unavailable Unavailable Marija Edgar APRN MUSIC INTERN Primary Care Provider + Marija Edgar APRN MUSIC INTERN Unavailable [phone] Mynor Broussard MD Unavailable [phone] Keisha Dotson MD Unavailable [phone] Galo Burrell MD Unavailable Unavailable Diana Desir [facility] Unavailable [phone] Rain Galaviz PA-C Unavailable [phone] Summer Lara MD Unavailable [phone] Tavia Wyatt MD Unavailable Unavailable Johnny Murillo MD Unavailable [phone] Erica Farrell APRN MUSIC INTERN Unavailable Teresita Bean [facility] Unavailable [phone] Tavia Wyatt MD Unavailable Unavailable Diana Desir [facility] Unavailable Rich Barrett MD Unavailable Neil Kent MD Unavailable Roney StoryM Unavailable [phone] Erica Farrell MORTGAGE ASSISTANT MUSIC INTERN Unavailable Diana Desir [facility] Unavailable [phone] Jelena David OD Unavailable [phone] Galo Burrell MD Unavailable Unavailable Livan Sharif MD Unavailable Livan Sharif MD Unavailable + Catherine Cm MD Unavailable + Valery Veronica PA-C Unavailable [phone] Catherine Cm MD Unavailable + Johnny Murillo MD Unavailable [phone] Brea Quinn MORTGAGE ASSISTANT MUSIC INTERN Unavailable [phone] Brea Quinn MORTGAGE ASSISTANT MUSIC INTERN Unavailable [phone] Jose Francisco Johnson MD Unavailable Livan Sharif MD Unavailable + IsCatherine hobbs MD Unavailable + Sydnie Martinez RN Unavailable Unavailable Alfonso Renteria MD Unavailable + [phone] Esha Grimm PA-C Primary Care Provider Cheng Todd PA-C Unavailable Radha Lomeli MORTGAGE ASSISTANT MUSIC INTERN Unavailable [phone] Jelena David OD Unavailable [phone] Pao Joseph RN Unavailable Unavailable Esha Grimm PA-C Unavailable [phone] Valery Veronica PA-C Unavailable [phone] Rey Tay MD Unavailable Rocky Zepeda DO Unavailable Philip Dumont MD Unavailable [phone] LorerianaMeredithC Unavailable [phone] Neil Kent MD Unavailable Juan Pablo Emmanuel MD Unavailable Audrey WaiteC Unavailable [phone] Valery VeronicaC Unavailable Encounter Details Date Type Department Care Team (Late st Contact Info) Description 06/03/2021 MyC Medical Advice [address] [address] Diana Desir, [facility] [address] [place] [address] Social History Tobacco Use Types Packs/Day Years [...] often do you attend [facility] or [facility] services? More than 4 times [...] a group home (including now)? No 08/11/2020 [place] Depression Scale Answer Date Recorded [place] Depression Score 5 01/14/2021 Last EPDS Self Harm Result Not on file 01/14 Education Answer Date Recorded What is the highest level of school you have completed or the highest degree you have received? 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 WIRELESS CONSULTANT Gender Identity Female 03/02/2021 5:45 PM [...] st Contact Info) Description 05/31/2024 8:40 AM WIRELESS CONSULTANT Therapy Visit [facility] [address] [place] [phone] Ingris Thompson, PT [facility] [address] [place] [address] 702475 05/31/2024 3:30 PM WIRELESS CONSULTANT Office Visit [facility] [address] [phone] Audery Díaz, Herminia Koo MD [address] [place] [address] 06/04/2024 3:30 PM WIRELESS CONSULTANT Office Visit [facility] [address] [facility] [address] [place] [phone] Frankie Jelena Garcia, [place] [address] [facility] [place] [address] 06/11/2024 10:30 AM WIRELESS CONSULTANT Appointment [facility] Respiratory Therapy [address] [place] [phone] Spec, Nurse Only Med 06/18/2024 2:50 PM WIRELESS CONSULTANT Therapy Visit [facility] [address] [place] [phone] Ingris Thompson, PT [facility] 516 [facility] 106 [place], [place] 9[address] 06/21/2024 2:00 PM WIRELESS CONSULTANT Office Visit [facility] - [place] [address] [place] [address], [address] [place] [phone] [place] [address] [place] 68[address] Johnny Penn MD 6[address] [facility] [place] [address] 06/25/2024 8:30 AM WIRELESS CONSULTANT Office Visit [address] [phone] Valery Veronica PAUcheC 909 [place] [address] 11/28/2024 7:45 AM CDT Virtual Visit [facility] [address] 4th [place] [phone] Meredith Carrera PA-C [address] [place] [address] documented as of this encounter Visit Diagnoses Not on filedocumented in this encounter Additional Health Concerns Infection Onset Date Last Indicated Resolved Time Rule Out COVID-19 07/13/2021 07/13/2021 07/14/2021 3:04 PM WIRELESS CONSULTANT Rule Out COVID-19 07/18/2021 07/18/2021 07/20/2021 1:56 PM WIRELESS CONSULTANT COVID-19 07/18/2021 07/18/2021 08/08/2021 11:3 9 PM WIRELESS CONSULTANT Rule Out COVID-19 12/18/2021 12/18/2021 12/19/2021 11:34 AM CDT Rule Out COVID-19 02/24/2022 02/24/2022 02/25/2022 1:08 PM CDT Rule Out COVID-19 04/26/2022 04/26/2022 04/26/2022 6:47 AM CDT Rule Out COVID-19 05/17/2022 05/17/2022 05/17/2022 10:20 PM WIRELESS CONSULTANT Rule Out COVID-19 06/09/2022 06/09/2022 06/09/2022 9:35 AM WIRELESS CONSULTANT COVID-19 06/09/2022 06/09/2022 06/30/2022 11:4 1 PM WIRELESS CONSULTANT Rule Out COVID-19 11/10/2022 11/10/2022 11/11/2022 12:17 PM CDT Rule Out COVID-19 03/07/2023 03/07/2023 03/07/2023 1:20 PM CDT Rule Out COVID-19 12/26/2023 12/26/2023 12/26/2023 9:50 AM CDT Rule Out COVID-19 04/09/2024 04/09/2024 04/10/2024 6:48 PM CDT Assessment Noted Time PHQ-9 Depression Total Score: 2 04/02/20 10:19 AM CDT documented as of this encounter Care Teams Track Broom Operator Relationship Specialty Start Date End Date Marija Edgar APRN MUSIC INTERN PCP - General Nurse Practitioner 04/30/20 04/14/23 Esha Grimm [facility]-C [address] [facility] [place] [place] [address] PCP - General Family Medicine 05/04/23 Lita Oseguera Personal Advocate & Liaison (PAL) 02/28/20 03/27/23 Marija Edgar APRN MUSIC INTERN Assigned PCP 06/08/20 04/29/23 Mynor Broussard MD [address] [address] Assigned Surgical Provider 06/01/20 11/28/21 Keisha oDtson MD 909 [place] [address] Assigned Neuroscience Provider 06/04/20 04/01/23 Galo Burrell MD Assigned Heart and Vascular Provider 10/05/20 04/02/22 Diana Desir, [facility] [address] [place], [place] 6[address] Pharmacist Pharmacist 04/17/21 Rain Galaviz PA-C [address] [place] [address] [address] [place] [address] Physician Curtain Mender Dermatology 04/28/21 Summer Lara MD [address] [place] [address] Assigned OBGYN Provider 05/31/21 Tavia Wyatt MD [address] [place] [address] Dermatology 07/14/21 Johnny Murillo MD [address] [place] [address] Assigned Musculoskeletal Provider 08/30/21 03/17/22 Erica Farrell APRN MUSIC INTERN [address] [facility] [address] [place], [place] 549[address] Nurse Practitioner Cardiovascular Disease 09/09/21 [facility] [address] [place] [phone] Pharmacist Pharmacist 09/24/21 09/29/21 Tavia Wyatt MD Assigned Surgical Provider 11/29/21 05/07/22 [facility] [address] [place] [address] Assigned MTM Pharmacist 01/02/22 Rich Barrett MD [address] [address] Physician Ophthalmology 01/21/22 Neil Kent MD [address] [place] [address] 944805 Dermatology 02/24/22 Roney Story DPM [address] [facility] [address] [place], [place] 295[address] Assigned Musculoskeletal Provider 03/20/22 08/13/22 Erica Farrell APRN MUSIC INTERN 1700 [place] [address] Assigned Heart and Vascular Provider 04/03/22 04/16/22 Diana Desir, [facility] [address] [place] [address] Assigned MTM Pharmacist 04/07/22 Jelena David OD [address] [facility] [place] [address] Assigned Surgical Provider 05/08/22 10/08/22 Galo Burrell MD Assigned Heart and Vascular Provider 04/17/22 06/11/22 Livan Sharif MD [address] [place] [address] Cardiovascular Disease 05/14/22 Livan Sharif MD [address] [place] [address] Assigned Heart and Vascular Provider 06/12/22 07/23/22 Catherine Cm MD [address] [place] [address] Cardiovascular Disease 07/21/22 Valery Veronica PA-C 909 [place] [address] Physician Curtain Mender Dermatology 07/21/22 Catherine Cm MD [address] [place] [address] [place] [address] Assigned Heart and Vascular Provider 07/24/22 11/05/22 Johnny Murillo MD [facility] [address] [address] Assigned Musculoskeletal Provider 08/14/22 10/08/22 Brea Quinn APRN MUSIC INTERN [address] [place] [address] 424465 Nurse Practitioner Dermatology 09/21/22 Brea Quinn APRN MUSIC INTERN [address] [place] [address] PA 163552 Assigned Surgical Provider 10/09/22 05/01/24 [place] [address] [address] Assigned Musculoskeletal Provider 10/09/22 05/01/24 Livan Sharif MD [address] [place] [address] [place] [phone] Assigned Heart and Vascular Provider 11/06/22 11/12/22 Catherine Cm MD [address] [place] [address] [place] 674355 Assigned Heart and Vascular Provider 11/13/22 05/27/23 Sydnie Martinez, RN Personal Advocate & Liaison (PAL) Family Medicine 03/28/23 07/31/23 Alfonso Renteria MD [address] [facility] [address] [place] [address] Assigned Neuroscience Provider 04/02/23 Cheng Todd PA-C [address] [place] [address] [phone] Assigned PCP 04/30/23 07/15/23 Radha Lomeli APRN MUSIC INTERN [address] [place] [phone] [place], [place] 314875 Assigned Heart and Vascular Provider 05/28/23 Jelena David OD [address] [facility] [place] [address] Ophthalmology 06/15/23 Pao Joseph, VJ Personal Advocate & Liaison (PAL) Nurse 08/01/23 11/07/23 Esha Grimm PA-C [address] [place] [address] Assigned PCP 07/16/23 Valery Veronica PA-C [address] [place] [address] 118545 Physician Curtain Mender Dermatology 09/19/23 Rey Tay MD [address] [place] [address] 887775 MD Gastroenterology 09/20/23 Rocky Zepeda DO 500 [place] [address] Physician Gastroenterology 09/20/23 Philip Dumont MD 516 [place] [address] Physician Ophthalmology 09/22/23 Meredith Carrera PA-C 909 [place], [place] 5601[address] Assigned Gastroenterology Provider 11/01/23 Neil Kent MD [address] [place] [address] Dermatology 11/02/23 [place] [address] [address] [facility] [place] [address] Neurological Surgery 12/26/23 Audrey Waite PA-C 500 [place] [address] Physician Curtain Mender Dermatology 02/28/24 Valery Veronica PA-C [address] [place] [address] Physician Curtain Mender Dermatology 04/10/24 documented as of this encounter
--- OUTSIDE RECORDS SUMMARY | 2024-05-27 08:52 | XMS_ITS | Encounter Summary ---
Author Organization [facility] Address [address] [place] [address] Care Team Providers Care Pool Installer Name Role Phone Lita Oseguera Unavailable Unavailable Marija Edgar APRN SUPERVISOR SEWER SYSTEM Primary Care Provider + Marija Edgar APRN SUPERVISOR SEWER SYSTEM Unavailable [phone] Mynor Broussard MD Unavailable [phone] Keisha Dotson MD Unavailable Galo Burrell MD Unavailable Unavailable Diana Desir [facility] Unavailable Rain Galaviz PA-C Unavailable [phone] Summer Lara MD Unavailable [phone] Tavia Wyatt MD Unavailable Unavailable Johnny Murillo MD Unavailable Erica Farrell APRN SUPERVISOR SEWER SYSTEM Unavailable Teresita Bean [facility] Unavailable Tavia Wyatt MD Unavailable Unavailable Diana Desir [facility] Unavailable Rich Barrett MD Unavailable Neil [place] MD Unavailable Roney StoryM Unavailable [phone] Erica Farrell WORK FROM HOME SUPERVISOR SEWER SYSTEM Unavailable Diana Desir [facility] Unavailable [phone] Jelena David OD Unavailable [phone] Galo Burrell MD Unavailable Unavailable Livan Sharif MD Unavailable Livan Sharif MD Unavailable + Catherine Cm MD Unavailable + Valery Veronica PA-C Unavailable [phone] Catherine Cm MD Unavailable + Johnny Murillo MD Unavailable [phone] Brea Quinn WORK FROM HOME SUPERVISOR SEWER SYSTEM Unavailable [phone] Brea Quinn WORK FROM HOME SUPERVISOR SEWER SYSTEM Unavailable [phone] Jose Francisco Johnson MD Unavailable Livan Sharif MD Unavailable + IsCatherine hobbs MD Unavailable + Sydnie Martinez RN Unavailable Unavailable Alfonso Renteria MD Unavailable + [phone] Esha Grimm PA-C Primary Care Provider Cheng Todd PA-C Unavailable Radha Lomeli WORK FROM HOME SUPERVISOR SEWER SYSTEM Unavailable [phone] Jelena David OD Unavailable Pao Joseph RN Unavailable Unavailable Esha Grimm PA-C Unavailable [phone] Valery Veronica PA-C Unavailable [phone] Rey Tay MD Unavailable Rocky Zepeda DO Unavailable Philip Dumont MD Unavailable [phone] Meredith CarreraC Unavailable [phone] Neil Kent MD Unavailable Juan Pablo Emmanuel MD Unavailable [phone] Ravindra Audreybere DOWC Unavailable [phone] Valery VeronicaC Unavailable [phone] Encounter Details Date Type Department Care Team [...] Answer Date Recorded PHQ-2 Score 0 04/02/2021 [facility] [...] a skilled nursing (including now)? No 08/11/2020 Larose Depression Scale Answer Date Recorded Larose Depression Score 5 01/14/2021 Last EPDS Self Harm Result Not on file 01/14 Education Answer Date Recorded What is the highest level of school you have completed or the highest degree you have received? 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 STORE KEEPER Gender Identity Female 03/02/2021 5:45 PM CDT Sexual Orientation Straight 02/28/2020 12 :51 AM CDT COVID-19 Exposure Response Date Recorded In the last month, have you been in contact with someone who was confirmed or suspected to have Coronavirus / COVID-19? No / Unsure 09/02/2021 12:26 PM STORE KEEPER documented as of this encounter Plan of Treatment Upcoming Encounters Date Type Department Care Team (Late st Contact Info) Description 05/31/2024 8:40 AM STORE KEEPER Therapy Visit [facility] Rehabilitation Services [address] [place] [phone] Ingris Thompson, PT [facility] [address] [place] [address] 05/31/2024 3:30 PM STORE KEEPER Office Visit [facility] Specialty Clinic [address] [phone] Audrey Díaz, Herminia Koo MD [address] [place] [address] [phone] 06/04/2024 3:30 PM STORE KEEPER Office Visit [address] [place] [phone] [place] [address] [place] [address] 06/11/2024 10:30 AM STORE KEEPER Appointment [facility] Respiratory Therapy [address] [place] [phone] Spec, Nurse Only Med 06/18/2024 2:50 PM STORE KEEPER Therapy Visit [facility] Rehabilitation Services [address] [place] [phone] Ingris Thompson, PT [facility] [address] [facility] 106 [place], [place] 8[address]195 06/21/2024 2:00 PM STORE KEEPER Office Visit [facility] Neurology Clinics - [place] [address] [facility], [address] [place] [phone] [place] [address] [place], [place] 765617 Johnny Penn MD 6520 [place], [place] 604765 06/25/2024 8:30 AM STORE KEEPER Office Visit [address] [phone] Valery Veronica PA-C [address] [place] [address] 440795 11/28/2024 7:45 AM CDT Virtual Visit [facility] Gastroenterology Clinic [address] 4th [place] [phone] Meredith Carrera PA-C [address] [place] [address] [phone] documented as of this encounter Visit Diagnoses Not on filedocumented in this encounter Additional Health Concerns Infection Onset Date Last Indicated Resolved Time Rule Out COVID-19 12/18/2021 12/18/2021 12/19/2021 11:34 AM CDT Rule Out COVID-19 02/24/2022 02/24/2022 02/25/2022 1:08 PM CDT Rule Out COVID-19 04/26/2022 04/26/2022 04/26/2022 6:47 AM CDT Rule Out COVID-19 05/17/2022 05/17/2022 05/17/2022 10:20 PM STORE KEEPER Rule Out COVID-19 06/09/2022 06/09/2022 06/09/2022 9:35 AM STORE KEEPER COVID-19 06/09/2022 06/09/2022 06/30/2022 11:4 1 PM STORE KEEPER Rule Out COVID-19 11/10/2022 11/10/2022 11/11/2022 12:17 PM CDT Rule Out COVID-19 03/07/2023 03/07/2023 03/07/2023 1:20 PM CDT Rule Out COVID-19 12/26/2023 12/26/2023 12/26/2023 9:50 AM CDT Rule Out COVID-19 04/09/2024 04/09/2024 04/10/2024 6:48 PM CDT Assessment Noted Time PHQ-9 Depression Total Score: 2 04/02/20 10:19 AM CDT documented as of this encounter Care Teams Pool Installer Relationship Specialty Start Date End Date Marija Edgar APRN CNP PCP - General Nurse Practitioner 04/30/20 04/14/23 Esha Grimm PA-C [address] [place] [address] PCP - General Family Medicine 05/04/23 Lita Oseguera Personal Advocate & Liaison (PAL) 02/28/20 03/27/23 Marija Edgar APRN SUPERVISOR SEWER SYSTEM Assigned PCP 06/08/20 04/29/23 Mynor Broussard MD 6[address] [facility] 500 [place] [address] Assigned Surgical Provider 06/01/20 11/28/21 Keisha Dotson MD 909 [place] [address] Assigned Neuroscience Provider 06/04/20 04/01/23 Galo Burrell MD Assigned Heart and Vascular Provider 10/05/20 04/02/22 [facility] [address] [place] [address] Pharmacist Pharmacist 04/17/21 Rain Galaviz PA-C [address] [facility] [address] [place] [address] Physician Senior Chemical Process Engineer Dermatology 04/28/21 Summer Lara MD [address] [place] [address] Assigned OBGYN Provider 05/31/21 2 Tavia Wyatt MD [address] [place] [address] Dermatology 07/14/21 Johnny Murillo MD [address] [facility] [address] [place] [address] Assigned Musculoskeletal Provider 08/30/21 03/17/22 Erica Farrell APRN SUPERVISOR SEWER SYSTEM 6405 [facility] [address] [place] [address] Nurse Practitioner Cardiovascular Disease 09/09/21 Teresita Bean, [facility] [address] [place] [phone] Pharmacist Pharmacist 09/24/21 09/29/21 Tavia Wyatt MD Assigned Surgical Provider 11/29/21 05/07/22 Diana Desir, [facility] 3033 [place] [address] Assigned MTM Pharmacist 01/02/22 Rich Barrett MD [address] [address] Physician Ophthalmology 01/21/22 Neil Kent MD 500 [place], [place] 392735 Dermatology 02/24/22 Roney Story DPM [address] [facility] [address] [place] [address] Assigned Musculoskeletal Provider 03/20/22 08/13/22 Erica Farrell APRN SUPERVISOR SEWER SYSTEM 1700 [place] [address] Assigned Heart and Vascular Provider 04/03/22 04/16/22 [facility] [address] [place], [place] 003226 Assigned MTM Pharmacist 04/07/22 Frankie Jelena [place] owods [address] [place] [address] Assigned Surgical Provider 05/08/22 10/08/22 Galo Burrell MD Assigned Heart and Vascular Provider 04/17/22 06/11/22 Livan Sharif MD [address] [place] 121845 Cardiovascular Disease 05/14/22 Livan Sharif MD [address] [place] 722685 Assigned Heart and Vascular Provider 06/12/22 07/23/22 Catherine Cm MD [address] [place] 798655 Cardiovascular Disease 07/21/22 Valery Veronica, PA-C 909 [place], [place] 419165 Physician Senior Chemical Process Engineer Dermatology 07/21/22 Catherine Cm MD [address] [place], [place] 688195 Assigned Heart and Vascular Provider 07/24/22 11/05/22 Johnny Murillo MD [facility] [place] [address] Assigned Musculoskeletal Provider 08/14/22 10/08/22 Brea Quinn APRN SUPERVISOR SEWER SYSTEM 500 [facility] [place] [address] Nurse Practitioner Dermatology 09/21/22 Brea Quinn APRN SUPERVISOR SEWER SYSTEM 6401 [place] [address] Assigned Surgical Provider 10/09/22 05/01/24 [place] [address] [address] Assigned Musculoskeletal Provider 10/09/22 05/01/24 Livan Sharif MD [address], [facility] [address] [place] [address] Assigned Heart and Vascular Provider 11/06/22 11/12/22 Catherine Cm MD 6405 [facility] S [facility] [address] [place] [address] Assigned Heart and Vascular Provider 11/13/22 05/27/23 Sydnie Martinez RN Personal Advocate & Liaison (PAL) Family Medicine 03/28/23 07/31/23 Alfonso eRnteria MD 5775 [facility] 200 [place] [address] Assigned Neuroscience Provider 04/02/23 Cheng Todd PA-C [address] [place] [address] [phone] Assigned PCP 04/30/23 07/15/23 Radha Lomeli APRN SUPERVISOR SEWER SYSTEM [address] [place] [address] Assigned Heart and Vascular Provider 05/28/23 [place] [address] [place] [address] MD Ophthalmology 06/15/23 Pao Joseph, RN Personal Advocate & Liaison (PAL) Nurse 08/01/23 11/07/23 Esha Grimm PA-C [address] [place] [phone] Assigned PCP 07/16/23 Valery Veronica PA-C [address] [place] [address] 690505 Physician Senior Chemical Process Engineer Dermatology 09/19/23 Rey Tay MD [address] [place] [address] MD Gastroenterology 09/20/23 Rocky Zepeda DO [address] [place] [address] 337955 Physician Gastroenterology 09/20/23 Philip Dumont MD [address] [place] [address] 355565 Physician Ophthalmology 09/22/23 Meredith Carrera PA-C [address] [place] [address] 263785 Assigned Gastroenterology Provider 11/01/23 Neil Kent MD [address] [address] Dermatology 11/02/23 [place] [address] 320637 Neurological Surgery 12/26/23 Audrey Waite PA-C 500 [place] [address] Physician Senior Chemical Process Engineer Dermatology 02/28/24 Valery Veronica PA-C 473375 [place], [place] [address] Physician Senior Chemical Process Engineer Dermatology 04/10/24 documented as of this encounter
--- OUTSIDE RECORDS SUMMARY | 2024-05-27 08:53 | XMS_ITS | Encounter Summary ---
Author Organization [facility] Address [address] [place] [address] Care Team Providers Care Architecture Technician Name Role Phone Lita Oseguera Unavailable Unavailable Marija Edgar APRN PRACTICE LEAD Primary Care Provider + Marija Edgar APRN PRACTICE LEAD Unavailable [phone] Mynor Broussard MD Unavailable [phone] Keisha Dotson MD Unavailable Galo Burrell MD Unavailable Unavailable Diana Desir [facility] Unavailable Rain Galaviz PA-C Unavailable Summer Lara MD Unavailable [phone] Tavia Wyatt MD Unavailable Unavailable Johnny Murillo MD Unavailable Erica Farrell APRN PRACTICE LEAD Unavailable Teresita Bean [facility] Unavailable [phone] Tavia Wyatt MD Unavailable Unavailable Diana Desir [facility] Unavailable [phone] Rich Barrett MD Unavailable Neil Kent MD Unavailable Roney StoryM Unavailable [phone] Erica Farrell CLINICAL ACADEMIC ALLERGIST PRACTICE LEAD Unavailable Diana Desir [facility] Unavailable [phone] Jelena David OD Unavailable [phone] Galo Burrell MD Unavailable Unavailable Livan Sharif MD Unavailable Livan Sharif MD Unavailable + Catherine Cm MD Unavailable + Valery Veronica PA-C Unavailable [phone] Catherine Cm MD Unavailable + Johnny Murillo MD Unavailable [phone] Brea Quinn CLINICAL ACADEMIC ALLERGIST PRACTICE LEAD Unavailable [phone] Brea Quinn CLINICAL ACADEMIC ALLERGIST PRACTICE LEAD Unavailable [phone] Jose Francisco Johnson MD Unavailable Livan Sharif MD Unavailable + IsCatherine hobbs MD Unavailable + Sydnie Martinez RN Unavailable Unavailable Alfonso Renteria MD Unavailable + [phone] Esha Grimm PA-C Primary Care Provider Cheng Todd PA-C Unavailable Radha Lomeli CLINICAL ACADEMIC ALLERGIST PRACTICE LEAD Unavailable [phone] Jelena David OD Unavailable Pao Joseph RN Unavailable Unavailable Esha Grimm PA-C Unavailable [phone] Valery Veronica PA-C Unavailable [phone] Rey Tay MD Unavailable Rocky Zepeda DO Unavailable Philip Dumont MD Unavailable [phone] Meredith CarreraC Unavailable [phone] Neil Kent MD Unavailable Juan Pablo Emmanuel MD Unavailable Audrey WaiteC Unavailable [phone] Valery VeronicaC Unavailable Encounter Details Date Type Department Care Team (Late st Contact Info) Description 06/01/2021 MyC Medical Advice [address] [address] Diana Desir, [facility] 3033 [place] [address] Social History Tobacco Use Types Packs/Day Years [...] do you attend [facility] or hindu services? More than 4 times [...] Answer Date Recorded PHQ-2 Score 0 04/02/2021 [facility] [...] in a detention (including now)? No 08/11/2020 [place] Depression Scale Answer Date Recorded [place] Depression Score 5 01/14/2021 Last EPDS Self Harm Result Not on file 01/14 Education Answer Date Recorded What is the highest level of school you have completed or the highest degree you have received? 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 SANE RN Gender Identity Female 03/02/2021 5:45 PM CDT Sexual Orientation Straight 02/28/2020 12 :51 AM CDT COVID-19 Exposure Response Date Recorded In the last month, have you been in contact with someone who was confirmed or suspected to have Coronavirus / COVID-19? No / Unsure 05/11/2021 4:19 PM CDT documented as of this encounter Miscellaneous Notes * Telephone Encounter - Diana Desir RP - 06/01/2021 3:43 PM CST Called patient and reassured 50 mg dose increase in sertraline is typical and okay to do. She will closely monitor changes in mental health over next couple weeks. Answered all questions. Diana Desir, PharmD Medication Therapy Management Provider, [facility] Pager: [phone] RN documented in this encounter Plan of Treatment Upcoming Encounters Date Type Department Care Team (Late st Contact Info) Description 05/31/2024 8:40 AM SANE RN Therapy Visit [facility] Rehabilitation Services [address] [phone] Ingris Thompson, PT [facility] [address] [place] [address] [phone] 05/31/2024 3:30 PM SANE RN Office Visit [facility] [place] [address]3285 [place] [phone] Audrey Díaz, Herminia Koo MD [address] [place] [address] 06/04/2024 3:30 PM SANE RN Office Visit [place] 0[address] [facility] [address] [place] [address] Jelena David, [address] [place] [address] [address] [place] [phone] 06/11/2024 10:30 [address]ANE [address] [facility] Respiratory Therapy [address] [place] [address] Spec, Nurse Only Med 06/18/2024 2:50 PM SANE RN Therapy Visit [facility] Rehabilitation Services [address] [phone] Ingris Thompson, PT [facility] [address] [place] [address] 06/21/2024 2:00 PM SANE RN Office Visit [facility] Neurology Clinics - [place] [address] [place] [address], [address] [place] [address] [place] [address] [place] [phone] Johnny Penn MD [address] [place] [address] 06/25/2024 8:30 AM SANE RN Office Visit [address] [phone] Valery Veronica PA-C [address] [place] [address] 11/28/2024 7:45 AM CDT Virtual Visit [facility] Gastroenterology Clinic [address] 4th [place] [phone] Meredith Carrera PA-C [address] [place] [address] documented as of this encounter Visit Diagnoses Not on filedocumented in this encounter Additional Health Concerns Infection Onset Date Last Indicated Resolved Time Rule Out COVID-19 07/13/2021 07/13/2021 07/14/2021 3:04 PM SANE RN Rule Out COVID-19 07/18/2021 07/18/2021 07/20/2021 1:56 PM SANE RN COVID-19 07/18/2021 07/18/2021 08/08/2021 11:3 9 PM SANE RN Rule Out COVID-19 12/18/2021 12/18/2021 12/19/2021 11:34 AM CDT Rule Out COVID-19 02/24/2022 02/24/2022 02/25/2022 1:08 PM CDT Rule Out COVID-19 04/26/2022 04/26/2022 04/26/2022 6:47 AM CDT Rule Out COVID-19 05/17/2022 05/17/2022 05/17/2022 10:20 PM SANE RN Rule Out COVID-19 06/09/2022 06/09/2022 06/09/2022 9:35 AM SANE RN COVID-19 06/09/2022 06/09/2022 06/30/2022 11:4 1 PM SANE RN Rule Out COVID-19 11/10/2022 11/10/2022 11/11/2022 12:17 PM CDT Rule Out COVID-19 03/07/2023 03/07/2023 03/07/2023 1:20 PM CDT Rule Out COVID-19 12/26/2023 12/26/2023 12/26/2023 9:50 AM CDT Rule Out COVID-19 04/09/2024 04/09/2024 04/10/2024 6:48 PM CDT Assessment Noted Time PHQ-9 Depression Total Score: 2 04/02/20 10:19 AM CDT documented as of this encounter Care Teams Architecture Technician Relationship Specialty Start Date End Date Marija Edgar APRN PRACTICE LEAD PCP - General Nurse Practitioner 04/30/20 04/14/23 Esha Grimm PA-C [address] [place] [address] PCP - General Family Medicine 05/04/23 Lita Oseguera Personal Advocate & Liaison (PAL) 02/28/20 03/27/23 Marija Edgar APRN PRACTICE LEAD Assigned PCP 06/08/20 04/29/23 Mynor Broussard MD [address] [address] Assigned Surgical Provider 06/01/20 11/28/21 Keisha Dotson MD 909 [place] [address] Assigned Neuroscience Provider 06/04/20 04/01/23 Galo Burrell MD Assigned Heart and Vascular Provider 10/05/20 04/02/22 [facility] 30[address] [place] [address] Pharmacist Pharmacist 04/17/21 Rain Galaviz PA-C [address] [place] [address] [address] [place] [address] Physician Bingo Caller Dermatology 04/28/21 Summer Lara MD [address] [place], [place] 865[address] Assigned OBGYN Provider 05/31/21 2 Tavia Wyatt MD [address] [facility] [place] [address] Dermatology 07/14/21 Johnny Murillo MD [address] [place] [address] Assigned Musculoskeletal Provider 08/30/21 03/17/22 Erica Farrell APRN PRACTICE LEAD [address] [facility] [address] [place] [address] Nurse Practitioner Cardiovascular Disease 09/09/21 Teresita Bean [facility] [address] [place] [address] Pharmacist Pharmacist 09/24/21 09/29/21 Tavia Wyatt MD Assigned Surgical Provider 11/29/21 05/07/22 Diana Desir, [facility] [address] [place] [address] Assigned MTM Pharmacist 01/02/22 Rich Barrett MD [address] [address] Physician Ophthalmology 01/21/22 Neil Kent MD 500 [place] [address] Dermatology 02/24/22 Roney Story DPM [address] [facility] 300 [place] [address] Assigned Musculoskeletal Provider 03/20/22 08/13/22 Erica Farrell APRN PRACTICE LEAD 1700 [place] [address] Assigned Heart and Vascular Provider 04/03/22 04/16/22 Diana Desir [facility] 3033 [place] [address] Assigned MTM Pharmacist 04/07/22 [place] David OD [address] [place] [address] Assigned Surgical Provider 05/08/22 10/08/22 Galo Burrell MD Assigned Heart and Vascular Provider 04/17/22 06/11/22 Livan Sharif MD [address] , [facility] [address] [place] 865015 Cardiovascular Disease 05/14/22 Livan Sharif MD [address], [facility]00 [place] 986495 Assigned Heart and Vascular Provider 06/12/22 07/23/22 Catherine Cm MD [address] [place] [address] [place] 209715 Cardiovascular Disease 07/21/22 Valery Veronica, PAUcheC [address] [place] [address] 912205 Physician Bingo Caller Dermatology 07/21/22 Catherine Cm MD [address] [place] [address] [place] 651685 Assigned Heart and Vascular Provider 07/24/22 11/05/22 Johnny Murillo MD [address] [place] [address] [id number] Assigned Musculoskeletal Provider 08/14/22 10/08/22 Brea Quinn APRN PRACTICE LEAD [address] [place] [address] [phone] Nurse Practitioner Dermatology 09/21/22 Brea Quinn APRN PRACTICE LEAD [address] [place] [address] ENMA DOE 121782 Assigned Surgical Provider 10/09/22 05/01/24 [place] [address] [place] [address] 328467 Assigned Musculoskeletal Provider 10/09/22 05/01/24 Livan Sharif MD [address], [facility] [address] [place] 629285 Assigned Heart and Vascular Provider 11/06/22 11/12/22 Catherine Cm MD [address] [facility] [address] [place] [address] Assigned Heart and Vascular Provider 11/13/22 05/27/23 Sydnie Martinez, RN Personal Advocate & Liaison (PAL) Family Medicine 03/28/23 07/31/23 Alfonso Renteria MD 5775 [facility] 200 [place], [place] 567956 Assigned Neuroscience Provider 04/02/23 Cheng Todd PA-C [address] [place] [address] [id number] Assigned PCP 04/30/23 07/15/23 Radha Lomeli, ARLENE PRACTICE LEAD [address] [place] [address] Assigned Heart and Vascular Provider 05/28/23 Jelena David OD [address] [place] [address] Ophthalmology 06/15/23 Pao Joseph, VJ Personal Advocate & Liaison (PAL) Nurse 08/01/23 11/07/23 Esha Grimm PAUcheC [address] [place] [address]83 Assigned PCP 07/16/23 Valery Veronica PA-C 9 [place] [address] Physician Bingo Caller Dermatology 09/19/23 Rey Tay MD 9 [place] [address] MD Gastroenterology 09/20/23 Rocky Zepeda DO [address] [place] [address] 319845 Physician Gastroenterology 09/20/23 Philip Dumont MD [address] [place] [address] 665385 Physician Ophthalmology 09/22/23 Meredith Carrera PA-C [address] [place] [address] 128015 Assigned Gastroenterology Provider 11/01/23 Neil Kent MD [address] [address] Dermatology 11/02/23 [place] [address] [place], [place] 819937 Neurological Surgery 12/26/23 Audrey Waite PA-C [address] [place] [address] Physician Bingo Caller Dermatology 02/28/24 Valery Veronica PA-C [address] [place] [address] Physician Bingo Caller Dermatology 04/10/24 documented as of this encounter
--- OUTSIDE RECORDS SUMMARY | 2024-05-27 08:53 | XMS_ITS | Encounter Summary ---
Author Organization [facility] Address [address] [place] [address] Care Team Providers Care Pc Maintenance Technician Name Role Phone Lita Oseguera Unavailable Unavailable Marija Edgar MOLDED RUBBER GOODS CUTTER EXTRUDER OPERATOR HORIZONTAL Primary Care Provider + Chanelle Mccann MOLDED RUBBER GOODS CUTTER CN Unavailab le Marija Edgar APRN EXTRUDER OPERATOR HORIZONTAL Unavailable Mynor Broussard MD Unavailable [phone] Keisha Dotson MD Unavailable [phone] Galo Burrell MD Unavailable Unavailable Diana Desir [facility] Unavailable Rain Galaviz PA-C Unavailable Summer Lara MD Unavailable [phone] Summer Lara MD Unavailable [phone] Summer Lara MD Unavailable [phone] Tavia Wyatt MD Unavailable Unavailable Johnny Murillo MD Unavailable Erica Farrell MOLDED RUBBER GOODS CUTTER EXTRUDER OPERATOR HORIZONTAL Unavailable Teresita Bean [facility] Unavailable Tavia Wyatt MD Unavailable Unavailable Desir, Diana T RPH Unavailable [phone] Rich Barrett MD Unavailable Neil Kent MD Unavailable Roney Story DPM Unavailable [phone] Erica Farrell MOLDED RUBBER GOODS CUTTER EXTRUDER OPERATOR HORIZONTAL Unavailable + Thang Diana Stanislav RP Unavailable [phone] Jelena David OD Unavailable Galo Burrell MD Unavailable Unavailable Livan Sharif MD Unavailable Livan Sharif MD Unavailable + Catherine Cm MD Unavailable + Valery Veronica PA-C Unavailable [phone] Catherine Cm MD Unavailable + Johnny Murillo MD Unavailable [phone] Brea Quinn MOLDED RUBBER GOODS CUTTER EXTRUDER OPERATOR HORIZONTAL Unavailable [phone] Brea Quinn MOLDED RUBBER GOODS CUTTER EXTRUDER OPERATOR HORIZONTAL Unavailable [phone] Jose Francisco Johnson MD Unavailable Livan Sharif MD Unavailable + Catherine Cm MD Unavailable + Sydnie Martinez RN Unavailable Unavailable Alfonso Renteria MD Unavailable Esha Grimm PA-C Primary Care Provider Cheng Todd PA-C Unavailable Radha Lomeli MOLDED RUBBER GOODS CUTTER EXTRUDER OPERATOR HORIZONTAL Unavailable [phone] Jelena David OD Unavailable [phone] Pao Joseph RN Unavailable Unavailable Esha Grimm-C Unavailable [phone] Jeremías, Valery D PA-C Unavailable [phone] Rey Tay MD Unavailable Rocky Zepeda DO Unavailable Philip Dumont MD Unavailable [phone] Meredith Carrera PA-C Unavailable [phone] Neil Kent MD Unavailable Juan Pablo Emmanuel MD Unavailable [phone] Audrey Waite PA-C Unavailable [phone] Valery Veronica PA-C Unavailable Encounter Details Date Type Department Care Team (Late st Contact Info) Description 04/28/2021 [facility] Advice [address] [address] Marija Edgar APRN [address] [place] [address] Social History Tobacco Use Types [...] you attend chur ch or taoist services? More than 4 times [...] in a detention (including now)? No 08/11/2020 [place] Depression Scale Answer Date Recorded [place] Depression Score 5 01/14/2021 Last EPDS Self Harm Result Not on file 01/14 Education Answer Date Recorded What is the highest level of school you have completed or the highest degree you have received? 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 SYSTEMS PROGRAMMER Gender Identity Female 03/02/2021 5:45 PM [...] st Contact Info) Description 05/31/2024 8:40 AM SYSTEMS PROGRAMMER Therapy Visit [facility] [address] [place] [address] Ingris Thompson, PT [facility] [address] [place] [phone] 05/31/2024 3:30 PM SYSTEMS PROGRAMMER Office Visit [facility] [id number] [place] [phone] Audrey Díaz, Herminia Koo MD [address] [place] [address] 06/04/2024 3:30 PM SYSTEMS PROGRAMMER [facility] [address] [facility] [address] [place] [phone] Jelena David, [place] [address] [place] [address] 06/11/2024 10:30 AM SYSTEMS PROGRAMMER Appointment [facility] [address] [place] [phone] Spec, Nurse Only Med 06/18/2024 2:50 PM SYSTEMS PROGRAMMER Therapy Visit [facility] [place] [id number] [place] [address] [address] [place] [phone] Ingris Thompson, PT [facility] [address] [place] [address] [address] [place], [place] [phone] 06/21/2024 2:00 PM SYSTEMS PROGRAMMER Office Visit [facility] - [address] [place] [phone] [place] [address] [place] [address] Johnny Penn MD [address] [place] [address] 06/25/2024 8:30 AM SYSTEMS PROGRAMMER Office Visit [address] [phone] Valery Veronica PA-C [address] [place] [address] 11/28/2024 7:45 AM CDT Virtual Visit [facility] [address] 4th [place] [phone] Meredith Carrera PA-C [address] [place] [address] documented as of this encounter Visit Diagnoses Not on filedocumented in this encounter Additional Health Concerns Infection Onset Date Last Indicated Resolved Time Rule Out COVID-19 05/11/2021 05/11/2021 05/13/2021 10:18 AM CDT Rule Out COVID-19 07/13/2021 07/13/2021 07/14/2021 3:04 PM SYSTEMS PROGRAMMER Rule Out COVID-19 07/18/2021 07/18/2021 07/20/2021 1:56 PM SYSTEMS PROGRAMMER COVID-19 07/18/2021 07/18/2021 08/08/2021 11:3 9 PM SYSTEMS PROGRAMMER Rule Out COVID-19 12/18/2021 12/18/2021 12/19/2021 11:34 AM CDT Rule Out COVID-19 02/24/2022 02/24/2022 02/25/2022 1:08 PM CDT Rule Out COVID-19 04/26/2022 04/26/2022 04/26/2022 6:47 AM CDT Rule Out COVID-19 05/17/2022 05/17/2022 05/17/2022 10:20 PM SYSTEMS PROGRAMMER Rule Out COVID-19 06/09/2022 06/09/2022 06/09/2022 9:35 AM SYSTEMS PROGRAMMER COVID-19 06/09/2022 06/09/2022 06/30/2022 11:4 1 PM SYSTEMS PROGRAMMER Rule Out COVID-19 11/10/2022 11/10/2022 11/11/2022 12:17 PM CDT Rule Out COVID-19 03/07/2023 03/07/2023 03/07/2023 1:20 PM CDT Rule Out COVID-19 12/26/2023 12/26/2023 12/26/2023 9:50 AM CDT Rule Out COVID-19 04/09/2024 04/09/2024 04/10/2024 6:48 PM CDT Assessment Noted Time PHQ-9 Depression Total Score: 2 04/02/20 10:19 AM CDT documented as of this encounter Care Teams Pc Maintenance Technician Relationship Specialty Start Date End Date Marija Edgar APRN EXTRUDER OPERATOR HORIZONTAL PCP - General Nurse Practitioner 04/30/20 04/14/23 Esha Grimm PA-C [address] [place] [phone] PCP - General Family Medicine 05/04/23 Lita Oseguera Personal Advocate & Liaison (PAL) 02/28/20 03/27/23 [place] [address] [place] [address] [address] [place], [place] 332[address] Assigned OBGYN Provider 05/02/2005/09 Marija Edgar APRN EXTRUDER OPERATOR HORIZONTAL Assigned PCP 06/08/20 04/29/23 Mynor Broussard MD [address] [facility] [address] [place], [place] 8[address] Assigned Surgical Provider 06/01/20 11/28/21 Keisha Dotson MD [address] [place], [place] 174375 Assigned Neuroscience Provider 06/04/20 04/01/23 Galo Burrell MD Assigned Heart and Vascular Provider 10/05/20 04/02/22 Diana Desir, [facility] [address] [place] [address] Pharmacist Pharmacist 04/17/21 Rain Galaviz PA-C [address] [place] [address] [place] [address] Physician Political Theory Professor Dermatology 04/28/21 Summer Lara MD [address] [place] [address] 713034 Assigned OBGYN Provider 05/10/2105/23 Summer Lara MD [address] [place] [address] 634604 Assigned OBGYN Provider 05/31/21 2 Summer Lara MD [address] [place] [address] [place], [place] 576[address] Assigned OBGYN Provider 05/24/2105/30 Tavia Wyatt MD [address] [place] [address] Dermatology 07/14/21 Johnny Murillo MD [address] [facility] [address] [place] [address] Assigned Musculoskeletal Provider 08/30/21 03/17/22 Erica Farrell APRN EXTRUDER OPERATOR HORIZONTAL [address] [facility] [address] [place] [address] Nurse Practitioner Cardiovascular Disease 09/09/21 Teresita Bean, [facility] [address] [place] [address] Pharmacist Pharmacist 09/24/21 09/29/21 Tavia Wyatt MD Assigned Surgical Provider 11/29/21 05/07/22 Diana Desir, [facility] [address] [place] [address] Assigned MTM Pharmacist 01/02/22 Rich Barrett MD [address] [address] Physician Ophthalmology 01/21/22 Neil Kent MD 500 [place], [place] [address] Dermatology 02/24/22 Roney Story DPM [address] [facility] [address] [place] [address] Assigned Musculoskeletal Provider 03/20/22 08/13/22 Erica Farrell APRN EXTRUDER OPERATOR HORIZONTAL [address] [place] [address] Assigned Heart and Vascular Provider 04/03/22 04/16/22 Diana Desir, [facility] [address] [facility] [place] [address] Assigned MTM Pharmacist 04/07/22 Frankie Jelena GarciaSONJA [address] [place] [address] Assigned Surgical Provider 05/08/22 10/08/22 Galo Brurell MD Assigned Heart and Vascular Provider 04/17/22 06/11/22 Livan Sharif MD [address] [place] [address] Cardiovascular Disease 05/14/22 Livan Sharif MD [address] [place] [address] Assigned Heart and Vascular Provider 06/12/22 07/23/22 Catherine Cm MD [address] [place] [address] Cardiovascular Disease 07/21/22 Valery Veronica, PA-C [address] [place] [address] Physician Political Theory Professor Dermatology 07/21/22 Catherine Cm MD [address] [place] [address] Assigned Heart and Vascular Provider 07/24/22 11/05/22 Johnny Murillo MD [address] [address] Assigned Musculoskeletal Provider 08/14/22 10/08/22 Brea Quinn APRN EXTRUDER OPERATOR HORIZONTAL [address] [place] [address] Nurse Practitioner Dermatology 09/21/22 Brea Quinn APRN EXTRUDER OPERATOR HORIZONTAL [address] [facility] [place] [address] Assigned Surgical Provider 10/09/22 05/01/24 [place] [address] [facility] [address] [place] [address] Assigned Musculoskeletal Provider 10/09/22 05/01/24 Livan Sharif MD [address] [facility] [address] [place] [address] Assigned Heart and Vascular Provider 11/06/22 11/12/22 Catherine Cm MD [address] [facility] [place] [address] Assigned Heart and Vascular Provider 11/13/22 05/27/23 Sydnie Martinez RN Personal Advocate & Liaison (PAL) Family Medicine 03/28/23 07/31/23 Alfonso Renteria MD [address] [facility] 200 [place] [address] Assigned Neuroscience Provider 04/02/23 Cheng Todd PA-C [address] [place] [address] Assigned PCP 04/30/23 07/15/23 Radha Lomeli APRN EXTRUDER OPERATOR HORIZONTAL [address] [facility] [address] [place] [address] Assigned Heart and Vascular Provider 05/28/23 Jelena David OD [address] [place] [address] MD Ophthalmology 06/15/23 Pao Joseph, VJ Personal Advocate & Liaison (PAL) Nurse 08/01/23 11/07/23 Esha Grimm PA-C [address] [place] [phone] Assigned PCP 07/16/23 Valery Veronica PA-C [address] [place] [address] [phone] Physician Political Theory Professor Dermatology 09/19/23 Rey Tay MD [address] [place] [address] 618435 Gastroenterology 09/20/23 Rocky Zepeda DO [address] [place] [address] [phone] Physician Gastroenterology 09/20/23 Philip Dumont MD [address] [place] [address] Physician Ophthalmology 09/22/23 Meredith Carrera PA-C [address] [place] [address] Assigned Gastroenterology Provider 11/01/23 Neil Kent MD [address] [address] Dermatology 11/02/23 [place] [address] [place] [address] [place] [address] Neurological Surgery 12/26/23 Audrey Waite PA-C 500 [place] [address] Physician Political Theory Professor Dermatology 02/28/24 Valery Veronica PA-C 911773 [address], [place] [address] Physician Political Theory Professor Dermatology 04/10/24 documented as of this encounter
--- OUTSIDE RECORDS SUMMARY | 2024-05-27 08:53 | XMS_ITS | Encounter Summary ---
Author Organization Plain Address [address] [place] [address] Care Team Providers Care Stain Sprayer Name Role Phone Lita Oseguera Unavailable Unavailable Marija Edgar PROTECTIVE SERVICES SOCIAL WORKER CURB SUPERVISOR Primary Care Provider + Chanelle Mccann PROTECTIVE SERVICES SOCIAL WORKER CNM Unavailab le Kyara De La Fuente RN Unavailable [phone] Marija Edgar APRN CURB SUPERVISOR Unavailable [phone] Mynor Broussard MD Unavailable [phone] Keisha Dotson MD Unavailable Stacey Briones INSTALLATION TECH Unavailable [phone] Galo Burrell MD Unavailable Unavailable Lesley Moody CHW Unavailable [phone] Meredith Bedoya Unavailable Unavailable Cristina Wood Unavailable Diana Desir [facility] Unavailable Rain Galaviz PA-C Unavailable Summer Lara MD Unavailable [phone] Summer Lara MD Unavailable [phone] Summer Lara MD Unavailable [phone] Tavia Wyatt MD Unavailable Unavailable SembraJohnny ortiz MD Unavailable [phone] Erica Farrell PROTECTIVE SERVICES SOCIAL WORKER CURB SUPERVISOR Unavailable + Teresita Bean [facility] Unavailable Tavia Wyatt MD Unavailable Unavailable ThangDiana [facility] Unavailable [phone] Rich Barrett MD Unavailable [phone] Neil Kent MD Unavailable Roney Story DPM Unavailable [phone] Erica Farrell PROTECTIVE SERVICES SOCIAL WORKER CURB SUPERVISOR Unavailable + ThangDiaan [facility] Unavailable [phone] Frankie Jelena Garcia OD Unavailable [phone] Galo Burrell MD Unavailable Unavailable Livan Sharif MD Unavailable + Livan Sharif MD Unavailable + Catherine Cm MD Unavailable + Valery Veronica PA-C Unavailable [phone] Catherine Cm MD Unavailable + Johnny Murillo MD Unavailable +[phone] Brea Quinn PROTECTIVE SERVICES SOCIAL WORKER CURB SUPERVISOR Unavailable [phone] Brea Quinn PROTECTIVE SERVICES SOCIAL WORKER CURB SUPERVISOR Unavailable [phone] Jose Francisco Johnson MD Unavailable Livan Sharif MD Unavailable + Catherine Cm MD Unavailable + Sydnie Martinez RN Unavailable Unavailable Alfonso Renteria MD Unavailable [phone] Esha Grimm PA-C Primary Care Provider Cheng Todd PA-C Unavailable Radha Lomeli APRN CURB SUPERVISOR Unavailable Jelena David OD Unavailable [phone] Pao Joseph RN Unavailable Unavailable [facility] PA-C Unavailable [phone] Valery Veronica PA-C Unavailable Rey Tay MD Unavailable Rocky Zepeda DO Unavailable Philip Dumont MD Unavailable Meredith Carrera PA-C Unavailable [phone] Neil Kent MD Unavailable Juan Pablo Emmanuel MD Unavailable Audrey Waite PA-C Unavailable JeremíasValery damon PA-C Unavailable Encounter Details Date Type Department Care Team (Late st Contact Info) Description 10/24/2020 [facility] Medical Advice [address] [address] Marija Edgar APRN CURB SUPERVISOR [address] [place] [address] Social History Tobacco Use Types Packs/Day [...] do you attend chur or pentecostalism services? More than 4 times [...] Answer Date Recorded PHQ-2 Score 3 09/29/2020 [facility] - Occupational Stress [...] PM CDT Legal Sex Female 4:13 AM DIRECTOR SUPPLIER QUALITY Gender Identity Female 03/02/2021 5:45 PM CDT [...] 11:44 AM CDT Replied to patient via [employer]. Anthony Doe PA-C on 10/27/2020 at 11:54 AM documented in this encounter Plan of Treatment Upcoming Encounters Date Type Department Care Team (Late st Contact Info) Description 05/31/2024 8:40 AM DIRECTOR SUPPLIER QUALITY Therapy Visit [facility] [address] [place] [address] [address] [place] [address] Ingris Thompson, [facility] [address] [place] [address] 05/31/2024 3:30 PM DIRECTOR SUPPLIER QUALITY Office Visit [facility] [address] [address] Audrey Díaz, Herminia Koo MD [address] [place] [address] 06/04/2024 3:30 PM DIRECTOR SUPPLIER QUALITY Office Visit [address] [place] [phone] Jelena David, [address] [place] [address] 06/11/2024 10:30 AM DIRECTOR SUPPLIER QUALITY Appointment [facility] [address] [place] [phone] Spec, Nurse Only Med 06/18/2024 2:50 PM DIRECTOR SUPPLIER QUALITY Therapy Visit [facility] [address] [place] [address] [address] [place] [phone] Ingris Thompson, PT [address] [address] 06/21/2024 2:00 PM DIRECTOR SUPPLIER QUALITY Office Visit [facility] [address], [address] [place] [phone] [place] [address] [place], [place] [address] Johnny Penn MD [address] [place] [address] 06/25/2024 8:30 AM DIRECTOR SUPPLIER QUALITY Office Visit [address] [phone] Valery Veronica PA-C [address] [place] [address] 11/28/2024 7:45 AM CDT Virtual Visit [facility] [address] [place] [phone] Meredith Carrera PA-C [address] [place] [address] [phone] documented as of this encounter Visit Diagnoses Not on filedocumented in this encounter Additional Health Concerns Infection Onset Date Last Indicated Resolved Time Rule Out COVID-19 11/05/2020 11/05/2020 11/06/2020 1:09 PM CDT Rule Out COVID-19 05/11/2021 05/11/2021 05/13/2021 10:18 AM CDT Rule Out COVID-19 07/13/2021 07/13/2021 07/14/2021 3:04 PM DIRECTOR SUPPLIER QUALITY Rule Out COVID-19 07/18/2021 07/18/2021 07/20/2021 1:56 PM DIRECTOR SUPPLIER QUALITY COVID-19 07/18/2021 07/18/2021 08/08/2021 11:3 9 PM DIRECTOR SUPPLIER QUALITY Rule Out COVID-19 12/18/2021 12/18/2021 12/19/2021 11:34 AM CDT Rule Out COVID-19 02/24/2022 02/24/2022 02/25/2022 1:08 PM CDT Rule Out COVID-19 04/26/2022 04/26/2022 04/26/2022 6:47 AM CDT Rule Out COVID-19 05/17/2022 05/17/2022 05/17/2022 10:20 PM DIRECTOR SUPPLIER QUALITY Rule Out COVID-19 06/09/2022 06/09/2022 06/09/2022 9:35 AM DIRECTOR SUPPLIER QUALITY COVID-19 06/09/2022 06/09/2022 06/30/2022 11:4 1 PM DIRECTOR SUPPLIER QUALITY Rule Out COVID-19 11/10/2022 11/10/2022 11/11/2022 12:17 PM CDT Rule Out COVID-19 03/07/2023 03/07/2023 03/07/2023 1:20 PM CDT Rule Out COVID-19 12/26/2023 12/26/2023 12/26/2023 9:50 AM CDT Rule Out COVID-19 04/09/2024 04/09/2024 04/10/2024 6:48 PM CDT Assessment Noted Time PHQ-9 Depression Total Score: 6 09/30/19 21 3:25 PM CDT documented as of this encounter Care Teams Stain Sprayer Relationship Specialty Start Date End Date Marija Edgar APRN CURB SUPERVISOR PCP - General Nurse Practitioner 04/30/20 04/14/23 Esha Grimm PA-C [address] [place] [phone] PCP - General Family Medicine 05/04/23 Lita Oseguera Personal Advocate & Liaison (PAL) 02/28/20 03/27/23 Chanelle Mccann APRN [place]dam [address] [place], [address] [address] Assigned OBGYN Provider 05/02/2005/09 Kyara De La Fuente, RN Specialty Communication Center Operator Neurology 06/04/20 03/05/21 Marija Edgar APRN CURB SUPERVISOR Assigned PCP 06/08/20 04/29/23 Mynor Broussard MD [address] [place], [place] [address] Assigned Surgical Provider 06/01/20 11/28/21 Keisha Dotson MD [address] [place] [address] Assigned Neuroscience Provider 06/04/20 04/01/23 Stacey Briones, [facility] Lead Communication Center Operator Primary Care - CC 08/11/2012/30 Galo Burrell MD Assigned Heart and Vascular Provider 10/05/20 04/02/22 Lesley Moody, [facility] Community Health Worker 10/23/2012/30 Meredith Bedoya Financial Resource Worker 10/23/20 11/23/20 Cristina Wood Financial Resource Worker 02/09/21 02/09/21 Diana Desir, [facility] [address] [place], [place] [phone] Pharmacist Pharmacist 04/17/21 Rain Galaviz PA-C [address] [place] [address] [place] [phone] Physician Care Consultant Dermatology 04/28/21 Summer Lara MD [address] [place] [address] Assigned OBGYN Provider 05/10/2105/23 Summer Lara MD [address] [place] [address] Assigned OBGYN Provider 05/31/21 2 Summer Lara MD [address] [facility] [place] [address] Assigned OBGYN Provider 05/24/2105/30 Tavia Wyatt MD [address] [facility] [place] [address] Dermatology 07/14/21 Johnny Murillo MD [address] [place] [address] Assigned Musculoskeletal Provider 08/30/21 03/17/22 Erica Farrell APRN CURB SUPERVISOR [address] [facility] [address] [place] [address] Nurse Practitioner Cardiovascular Disease 09/09/21 Teresita Bean [facility] [address] [place] [phone] Pharmacist Pharmacist 09/24/21 09/29/21 Tavia Wyatt MD Assigned Surgical Provider 11/29/21 05/07/22 Diana Desir, [facility] [address] [place] [address] Assigned MTM Pharmacist 01/02/22 Rich Barrett MD [address] [facility] [address] [place] [address] Physician Ophthalmology 01/21/22 Neil Kent MD [address] [place] [address] Dermatology 02/24/22 Roney Story DPM [address] [facility] [address] [place] [address] Assigned Musculoskeletal Provider 03/20/22 08/13/22 Erica Farrell APRN CURB SUPERVISOR [address] [place] [address] Assigned Heart and Vascular Provider 04/03/22 04/16/22 Diana Desir, [facility] [address] [place] [address] Assigned MTM Pharmacist 04/07/22 Jelena David OD [address] [facility] [place] [address] Assigned Surgical Provider 05/08/22 10/08/22 Galo Burrell MD Assigned Heart and Vascular Provider 04/17/22 06/11/22 Livan Sharif MD [address] [facility] , [facility] [address] [place] [phone] Cardiovascular Disease 05/14/22 Livan Sharif MD [address] [facility] [place], [place] [phone] Assigned Heart and Vascular Provider 06/12/22 07/23/22 Catherine Cm MD [address] [place] [address] [place] 408[address] Cardiovascular Disease 07/21/22 Valery Veronica, PA-C [address] [place] [address] [phone] Physician Care Consultant Dermatology 07/21/22 Catherine Cm MD [address] [place] [address] [place] [phone] Assigned Heart and Vascular Provider 07/24/22 11/05/22 Johnny Murillo MD [address] [place] [address] [phone] Assigned Musculoskeletal Provider 08/14/22 10/08/22 Brea Quinn APRN CURB SUPERVISOR [address] [place] [address] [phone] Nurse Practitioner Dermatology 09/21/22 Brea Quinn APRN CURB SUPERVISOR [address] [place] [address] [place] [id number] Assigned Surgical Provider 10/09/22 05/01/24 [place] [address] [place] [address] [phone] Assigned Musculoskeletal Provider 10/09/22 05/01/24 Livan Sharif MD [address], [facility] [address] [place] [address] Assigned Heart and Vascular Provider 11/06/22 11/12/22 Catherine Cm MD [address] [facility] [address] [place] [address] Assigned Heart and Vascular Provider 11/13/22 05/27/23 Sydnie Martinez, RN Personal Advocate & Liaison (PAL) Family Medicine 03/28/23 07/31/23 Alfonso Renteria MD [address] [facility] 200 [place] [address] Assigned Neuroscience Provider 04/02/23 Cheng Todd PA-C [address] [place] [address] [phone] Assigned PCP 04/30/23 07/15/23 Radha Lomeli, ARLENE CURB SUPERVISOR [address] [place] [address] Assigned Heart and Vascular Provider 05/28/23 Jelena David OD [address] [facility] [place] [address] Ophthalmology 06/15/23 Pao Joseph, VJ Personal Advocate & Liaison (PAL) Nurse 08/01/23 11/07/23 Esha Grimm PA-C [address] [place] [phone] Assigned PCP 07/16/23 Valery Veronica PA-C [address] [place] [address] Physician Care Consultant Dermatology 09/19/23 Rey Tay MD [address] [place] [address] MD Gastroenterology 09/20/23 Rocky Zepeda DO [address] [place] [address] 747245 Physician Gastroenterology 09/20/23 Philip Dumont MD [address] [place] [address] 655635 Physician Ophthalmology 09/22/23 Meredith Carrera PA-C [address] [place] [address] [phone] Assigned Gastroenterology Provider 11/01/23 Neil Kent MD [address] 465[address] Dermatology 11/02/23 [place] [address] [place] [address] Neurological Surgery 12/26/23 Audrey Waite PA-C [address] [place] [address] 594885 Physician Care Consultant Dermatology 02/28/24 Valery Veronica PA-C [address] [place] [address] Physician Care Consultant Dermatology 04/10/24 documented as of this encounter
--- OUTSIDE RECORDS SUMMARY | 2024-05-27 08:53 | XMS_ITS | Encounter Summary ---
Author Organization [place] Address [address] [place] [address] Care Team Providers Care Portal Developer Name Role Phone Lita Oseguera Unavailable Unavailable Marija Edgar APRN DIRECTOR OF INSTRUCTIONAL TECHNOLOGY Primary Care Provider + Chanelle Mccann APRN CNM Unavailab le Kyara De La Fuente RN Unavailable [phone] Marija Edgar APRN DIRECTOR OF INSTRUCTIONAL TECHNOLOGY Unavailable Mynor Broussard MD Unavailable [phone] Keisha Dotson MD Unavailable Galo Burrell MD Unavailable Unavailable Cristina Wood Unavailable Diana Desir [facility] Unavailable Rain Galaviz PA-C Unavailable [phone] Summer Lara MD Unavailable [phone] Summer Lara MD Unavailable [phone] Summer Lara MD Unavailable [phone] Tavia Wyatt MD Unavailable Unavailable Johnny Murillo MD Unavailable [phone] Erica Farrell APRN DIRECTOR OF INSTRUCTIONAL TECHNOLOGY Unavailable Teresita Bean Walter [facility] Unavailable Tavia Wyatt MD Unavailable Unavailable Diana Desir [facility] Unavailable [phone] Rich Barrett MD Unavailable [phone] Neil Kent MD Unavailable Roney StoryM Unavailable [phone] Erica Farrell NEWS OPERATIONS MANAGER DIRECTOR OF INSTRUCTIONAL TECHNOLOGY Unavailable + Diana Desir [facility] Unavailable [phone] Jelena David OD Unavailable Galo Burrell MD Unavailable Unavailable Livan Sharif MD Unavailable + Livan Sharif MD Unavailable + Catherine Cm MD Unavailable + Valery Veronica PA-C Unavailable [phone] Catherine Cm MD Unavailable + Johnny Murillo MD Unavailable [phone] Brea Quinn NEWS OPERATIONS MANAGER DIRECTOR OF INSTRUCTIONAL TECHNOLOGY Unavailable [phone] Brea Quinn NEWS OPERATIONS MANAGER DIRECTOR OF INSTRUCTIONAL TECHNOLOGY Unavailable [phone] Jose Francisco Johnson MD Unavailable Livan Sharif MD Unavailable + Catherine Cm MD Unavailable + Sydnie Martinez RN Unavailable Unavailable Alfonso Renteria MD Unavailable [phone] Esha Grimm PA-C Primary Care Provider Cheng Todd PA-C Unavailable Radha Lomeli NEWS OPERATIONS MANAGER DIRECTOR OF INSTRUCTIONAL TECHNOLOGY Unavailable [phone] Jelena David OD Unavailable Pao Joseph RN Unavailable Unavailable Esha Grimm PA-C Unavailable [phone] Valery Veronica PA-C Unavailable Rey Tay MD Unavailable Rocky Zepeda DO Unavailable Philip Dumont MD Unavailable [phone] Meredith Carrera PA-C Unavailable Neil Kent MD Unavailable Juan Pablo Emmanuel MD Unavailable Audrey Waite PA-C Unavailable [phone] Valery Veronica PA-C Unavailable Encounter Details Date Type Department Care Team (Late st Contact Info) Description 01/02/2021 MyC Medical Advice [address] [address] Kierra Eller Social History Tobacco [...] you attend chur ch or baptism services? More than 4 times per year [...] Date Recorded PHQ-2 Score 3 09/29/2020 [facility] [...] PM CDT Legal Sex Female 4:13 AM SCIENTIST/ENGINEER Gender Identity Female 03/02/2021 5:45 PM CDT [...] st Contact Info) Description 05/31/2024 8:40 AM SCIENTIST/ENGINEER Therapy Visit [facility] [address] [place] [address] Ingris Thompson, PT [facility] [address] [place] [address] [address] [place], [place] [phone] 05/31/2024 3:30 PM SCIENTIST/ENGINEER Office Visit [facility] [address] [address] Audrey Díaz PA-C Khan, Waseem, MD [address], [place] [phone] 06/04/2024 3:30 PM SCIENTIST/ENGINEER Office Visit [facility] [place] [address] [facility] [address] [place] [phone] Jelena David, OD [address] [facility] [place] [address] 06/11/2024 10:30 AM SCIENTIST/ENGINEER Appointment [facility] Respiratory Therapy [address] [place] [phone] Spec, Nurse Only Med 06/18/2024 2:50 PM SCIENTIST/ENGINEER Therapy Visit [facility] [address] [place] [phone] Ingris Thompson, PT [facility] [address] [facility] [address] [place], [place] [phone] 06/21/2024 2:00 PM SCIENTIST/ENGINEER Office Visit [facility] [place] [address] [place] [address], [address] [place] [phone] [place] [address] [place] [address] Johnny Penn MD [address] [place], [place] [address] 06/25/2024 8:30 AM SCIENTIST/ENGINEER Office Visit [address] [phone] Valery Veronica PA-C [address] [place] [phone] 11/28/2024 7:45 AM CDT Virtual Visit [facility] [address] [place] [phone] Meredith Carrera PA-C [address] [place] [address] documented as of this encounter Visit Diagnoses Not on filedocumented in this encounter Additional Health Concerns Infection Onset Date Last Indicated Resolved Time Rule Out COVID-19 05/11/2021 05/11/2021 05/13/2021 10:18 AM CDT Rule Out COVID-19 07/13/2021 07/13/2021 07/14/2021 3:04 PM SCIENTIST/ENGINEER Rule Out COVID-19 07/18/2021 07/18/2021 07/20/2021 1:56 PM SCIENTIST/ENGINEER COVID-19 07/18/2021 07/18/2021 08/08/2021 11:3 9 PM SCIENTIST/ENGINEER Rule Out COVID-19 12/18/2021 12/18/2021 12/19/2021 11:34 AM CDT Rule Out COVID-19 02/24/2022 02/24/2022 02/25/2022 1:08 PM CDT Rule Out COVID-19 04/26/2022 04/26/2022 04/26/2022 6:47 AM CDT Rule Out COVID-19 05/17/2022 05/17/2022 05/17/2022 10:20 PM SCIENTIST/ENGINEER Rule Out COVID-19 06/09/2022 06/09/2022 06/09/2022 9:35 AM SCIENTIST/ENGINEER COVID-19 06/09/2022 06/09/2022 06/30/2022 11:4 1 PM SCIENTIST/ENGINEER Rule Out COVID-19 11/10/2022 11/10/2022 11/11/2022 12:17 PM CDT Rule Out COVID-19 03/07/2023 03/07/2023 03/07/2023 1:20 PM CDT Rule Out COVID-19 12/26/2023 12/26/2023 12/26/2023 9:50 AM CDT Rule Out COVID-19 04/09/2024 04/09/2024 04/10/2024 6:48 PM CDT Assessment Noted Time PHQ-9 Depression Total Score: 6 09/30/19 3:25 PM CDT documented as of this encounter Care Teams Portal Developer Relationship Specialty Start Date End Date Marija Edgar APRN DIRECTOR OF INSTRUCTIONAL TECHNOLOGY PCP - General Nurse Practitioner 04/30/20 04/14/23 Esha Grimm PA-C [address] [place] [phone] PCP - General Family Medicine 05/04/23 Lita Oseguera Personal Advocate & Liaison (PAL) 02/28/20 03/27/23 Chanelle Mccann APRN CNM [address] [place] [address] 200 [place] [address] Assigned OBGYN Provider 05/02/2005/09 Kyara De La Fuente, RN Specialty [facility] Neurology 06/04/20 03/05/21 Marija Edgar APRN DIRECTOR OF INSTRUCTIONAL TECHNOLOGY Assigned PCP 06/08/20 04/29/23 Mynor Broussard MD [address] [facility] 500 [place], [place] [address] Assigned Surgical Provider 06/01/20 11/28/21 Keisha Dotson MD [address] [place], [place] [phone] Assigned Neuroscience Provider 06/04/20 04/01/23 Galo Burrell MD Assigned Heart and Vascular Provider 10/05/20 04/02/22 Cristina Wood Financial Resource Worker 02/09/21 02/09/21 Diana Desir, [facility] [address] [place] [address] Pharmacist Pharmacist 04/17/21 Rain Galaviz PA-C [address] [place] [address] [address] [place] [place], [place] [phone] Physician Sweeper Operator Highways Dermatology 04/28/21 Summer Lara MD [address] [place] [address] [phone] Assigned OBGYN Provider 05/10/2105/23 Summer Lara MD [address] [place] [address] [phone] Assigned OBGYN Provider 05/31/21 2 Summer Lara MD [address] [place] [address] [phone] Assigned OBGYN Provider 05/24/2105/30 Tavia Wyatt MD [address] [place] [address] Dermatology 07/14/21 Johnny Murillo MD [address] [address] [place] [address] Assigned Musculoskeletal Provider 08/30/21 03/17/22 Erica Farrell APRN DIRECTOR OF INSTRUCTIONAL TECHNOLOGY [address] [facility] [address] [place] [address] Nurse Practitioner Cardiovascular Disease 09/09/21 Teresita Bean [facility] [address] [facility] [place] [address] Pharmacist Pharmacist 09/24/21 09/29/21 Tavia Wyatt MD Assigned Surgical Provider 11/29/21 05/07/22 Diana Desir [facility] [address] [place] [address] Assigned MTM Pharmacist 01/02/22 Rich Barrett MD [address] [place] [address] 114205 Physician Ophthalmology 01/21/22 Neil Kent MD 500 [place] [address] Dermatology 02/24/22 Roney Story DPM [address] [facility] [address] [place] [address] Assigned Musculoskeletal Provider 03/20/22 08/13/22 Erica Farrell APRN DIRECTOR OF INSTRUCTIONAL TECHNOLOGY [address] [place] [address] Assigned Heart and Vascular Provider 04/03/22 04/16/22 Diana Desir [facility] [address] [place] [address] Assigned MTM Pharmacist 04/07/22 Jelena David OD [address] [facility] [place] [address] Assigned Surgical Provider 05/08/22 10/08/22 Galo Burrell MD Assigned Heart and Vascular Provider 04/17/22 06/11/22 Livan Sharif MD [address] [place] [address] Cardiovascular Disease 05/14/22 Livan Sharif MD [address] [place] [phone] Assigned Heart and Vascular Provider 06/12/22 07/23/22 Catherine Cm MD [address] [place] 034115 Cardiovascular Disease 07/21/22 Valery Veronica, PA-C [address] [place], [place] [address] Physician Sweeper Operator Highways Dermatology 07/21/22 Catherine Cm MD [address] [place] [phone] Assigned Heart and Vascular Provider 07/24/22 11/05/22 Johnny Murillo MD [address] [facility] [address] [place] [address] Assigned Musculoskeletal Provider 08/14/22 10/08/22 Brea Quinn APRN DIRECTOR OF INSTRUCTIONAL TECHNOLOGY [address] [place], [place] [phone] Nurse Practitioner Dermatology 09/21/22 Brea Quinn APRN DIRECTOR OF INSTRUCTIONAL TECHNOLOGY [address] [place], [place] [phone] Assigned Surgical Provider 10/09/22 05/01/24 [place] [address] [facility] [address] [place] [address] Assigned Musculoskeletal Provider 10/09/22 05/01/24 Livan Sharif MD [address] [facility] [address] [place] [address] Assigned Heart and Vascular Provider 11/06/22 11/12/22 Catherine Cm MD [address] [facility] [address] [place], [place] [address] Assigned Heart and Vascular Provider 11/13/22 05/27/23 Sydnie Martinez RN Personal Advocate & Liaison (PAL) Family Medicine 03/28/23 07/31/23 Alfonso Renteria MD [address] [facility] 200 [place], [place] [address] Assigned Neuroscience Provider 04/02/23 Cheng Todd PA-C [address] [place] [address] Assigned PCP 04/30/23 07/15/23 Radha Lomeli APRN DIRECTOR OF INSTRUCTIONAL TECHNOLOGY [address] [facility] [address] [place] [address] Assigned Heart and Vascular Provider 05/28/23 Jelena David OD [address] [facility] [place] [address] MD Ophthalmology 06/15/23 Pao Joseph, VJ Personal Advocate & Liaison (PAL) Nurse 08/01/23 11/07/23 Esha Grimm PA-C [address] [place] [phone] Assigned PCP 07/16/23 Valery Veronica PA-C [address] [place] [address] [phone] Physician Sweeper Operator Highways Dermatology 09/19/23 Rey Tay MD [address] [place] [address] 779425 Gastroenterology 09/20/23 Rocky Zepeda DO [address] [place] [address] 375285 Physician Gastroenterology 09/20/23 Philip Dumont MD [address] [place] [address]15 Physician Ophthalmology 09/22/23 Meredith Carrera PA-C [address] [place] [address] [phone] Assigned Gastroenterology Provider 11/01/23 Neil Kent MD [address] [address] Dermatology 11/02/23 [place] [address] [place] [address] [place] [address] [phone] Neurological Surgery 12/26/23 Audrey Waite PA-C 500 [place], [place] [address] Physician Sweeper Operator Highways Dermatology 02/28/24 Valery Veronica PA-C 664329 [address] [address] Physician Sweeper Operator Highways Dermatology 04/10/24 documented as of this encounter
--- OUTSIDE RECORDS SUMMARY | 2024-05-27 08:53 | XMS_ITS | Encounter Summary ---
Author Organization [facility] Address [address] [place] [address] Care Team Providers Care It Program Manager Name Role Phone Lita Oseguera Unavailable Unavailable Marija Edgar SALES TRAINING MANAGER KITCHEN RUNNER Primary Care Provider + Chanelle Mccann SALES TRAINING MANAGER CN Unavailab le Marija Edgar APRN KITCHEN RUNNER Unavailable Mynor Broussard MD Unavailable [phone] Keisha Dotson MD Unavailable [phone] Galo Burrell MD Unavailable Unavailable Diana Desir [facility] Unavailable [phone] Rain Galaviz PA-C Unavailable Summer Lara MD Unavailable Summer Lara MD Unavailable [phone] Summer Lara MD Unavailable [phone] Tavia Wyatt MD Unavailable Unavailable Johnny Murillo MD Unavailable Erica Farrell SALES TRAINING MANAGER KITCHEN RUNNER Unavailable Teresita Bean [facility] Unavailable [phone] Tavia Wyatt MD Unavailable Unavailable Desir, Diana T RPH Unavailable [phone] Rich Barrett MD Unavailable Neil Kent MD Unavailable Roney Story DPM Unavailable [phone] Erica Farrell SALES TRAINING MANAGER KITCHEN RUNNER Unavailable + Thang Diana Stanislav RP Unavailable [phone] Jelena David OD Unavailable Galo Burrell MD Unavailable Unavailable Livan Sharif MD Unavailable Livan Sharif MD Unavailable + Catherine Cm MD Unavailable + Valery Veronica PA-C Unavailable [phone] Catherine Cm MD Unavailable + Johnny Murillo MD Unavailable [phone] Brea Quinn SALES TRAINING MANAGER KITCHEN RUNNER Unavailable [phone] Brea Quinn SALES TRAINING MANAGER KITCHEN RUNNER Unavailable [phone] Jose Francisco Johnson MD Unavailable Livan Sharif MD Unavailable + Catherine Cm MD Unavailable + Sydnie Martinez RN Unavailable Unavailable Alfonso Renteria MD Unavailable Esha Grimm PA-C Primary Care Provider Cheng Todd PA-C Unavailable Radha Lomeli SALES TRAINING MANAGER KITCHEN RUNNER Unavailable [phone] Jelena David OD Unavailable [phone] Pao Joseph RN Unavailable Unavailable Esha Grimm-C Unavailable [phone] Jeremías, Valery D PA-C Unavailable [phone] Rey Tay MD Unavailable Rocky Zepeda DO Unavailable Philip Dumont MD Unavailable [phone] Meredith Carrera PA-C Unavailable [phone] Neil Kent MD Unavailable Juan Pablo Emmanuel MD Unavailable [phone] Audrey Waite PA-C Unavailable [phone] Valery Veronica PA-C Unavailable [phone] Encounter Details Date Type Department Care Team (Late st Contact Info) Description 04/17/2021 [facility] Medical Advice [address] [address] [facility] [address] [place] [address] Social History Tobacco Use Types Packs/Day Years [...] you attend chur ch or voodoo services? More than 4 times [...] Date Recorded PHQ-2 Score 0 04/02/2021 [facility] of Occupat [...] in a correction (including now)? No 08/11/2020 Churdan Depression Scale Answer Date Recorded Churdan Depression Score 5 01/14/2021 Last EPDS Self Harm Result Not on file 01/14 Education Answer Date Recorded What is the highest level of school you have completed or the highest degree you have received? 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 SURVEY INSTRUMENT OPERATOR Gender Identity Female 03/02/2021 5:45 PM [...] st Contact Info) Description 05/31/2024 8:40 AM SURVEY INSTRUMENT OPERATOR Therapy Visit [facility] Rehabilitation Services [address] [place] [address] Ingris Thompson, PT [facility] [address] [place] [id number] 05/31/2024 3:30 PM SURVEY INSTRUMENT OPERATOR Office Visit [facility] Specialty Clinic [address] [place] [phone] Audrey Díaz, Herminia Koo MD [facility] [place] [address] 06/04/2024 3:30 PM SURVEY INSTRUMENT OPERATOR [facility] [address] [place] [phone] Jelena David, [address] [facility] [place] [address] 06/11/2024 10:30 AM SURVEY INSTRUMENT OPERATOR Appointment [facility] Respiratory Therapy [address] [place] [phone] Spec, Nurse Only Med 06/18/2024 2:50 PM SURVEY INSTRUMENT OPERATOR Therapy Visit [facility] Rehabilitation Services [address] [place] [phone] Ingris Thompson, PT [facility] [address] [place] [address] [address] [place], [place] [address] 06/21/2024 2:00 PM SURVEY INSTRUMENT OPERATOR Office Visit [facility] Neurology [facility] - [place] [address] [place] [address] [address] [place] [phone] [place] [address] [place], [place] [address] Johnny Penn MD [address] [facility] [place] [id number] 06/25/2024 8:30 AM SURVEY INSTRUMENT OPERATOR Office Visit [address] [phone] Valery Veronica PA-C [address] [place] [address] 11/28/2024 7:45 AM CDT Virtual Visit [facility] Gastroenterology Clinic [address] 4th [place] [phone] Meredith Carrera PA-C [address] [place] [address] documented as of this encounter Visit Diagnoses Not on filedocumented in this encounter Additional Health Concerns Infection Onset Date Last Indicated Resolved Time Rule Out COVID-19 05/11/2021 05/11/2021 05/13/2021 10:18 AM CDT Rule Out COVID-19 07/13/2021 07/13/2021 07/14/2021 3:04 PM SURVEY INSTRUMENT OPERATOR Rule Out COVID-19 07/18/2021 07/18/2021 07/20/2021 1:56 PM SURVEY INSTRUMENT OPERATOR COVID-19 07/18/2021 07/18/2021 08/08/2021 11:3 9 PM SURVEY INSTRUMENT OPERATOR Rule Out COVID-19 12/18/2021 12/18/2021 12/19/2021 11:34 AM CDT Rule Out COVID-19 02/24/2022 02/24/2022 02/25/2022 1:08 PM CDT Rule Out COVID-19 04/26/2022 04/26/2022 04/26/2022 6:47 AM CDT Rule Out COVID-19 05/17/2022 05/17/2022 05/17/2022 10:20 PM SURVEY INSTRUMENT OPERATOR Rule Out COVID-19 06/09/2022 06/09/2022 06/09/2022 9:35 AM SURVEY INSTRUMENT OPERATOR COVID-19 06/09/2022 06/09/2022 06/30/2022 11:4 1 PM SURVEY INSTRUMENT OPERATOR Rule Out COVID-19 11/10/2022 11/10/2022 11/11/2022 12:17 PM CDT Rule Out COVID-19 03/07/2023 03/07/2023 03/07/2023 1:20 PM CDT Rule Out COVID-19 12/26/2023 12/26/2023 12/26/2023 9:50 AM CDT Rule Out COVID-19 04/09/2024 04/09/2024 04/10/2024 6:48 PM CDT Assessment Noted Time PHQ-9 Depression Total Score: 2 04/02/20 10:19 AM CDT documented as of this encounter Care Teams It Program Manager Relationship Specialty Start Date End Date Marija Edgar APRN KITCHEN RUNNER PCP - General Nurse Practitioner 04/30/20 04/14/23 Esha Grimm PA-C [address] [place] [phone] PCP - General Family Medicine 05/04/23 Lita Oseguera Personal Advocate & Liaison (PAL) 02/28/20 03/27/23 Chanelle Mccann APRN CNM [id number] [place] [address] [address] [place], [place] 3625[address] Assigned OBGYN Provider 05/02/2005/09 Marija Edgar APRN KITCHEN RUNNER Assigned PCP 06/08/20 04/29/23 Mynor Broussard MD [address] [facility] 500 [place], [place] [address] Assigned Surgical Provider 06/01/20 11/28/21 Keisha Dotson MD [address] [place], [place] [phone] Assigned Neuroscience Provider 06/04/20 04/01/23 Galo Burrell MD Assigned Heart and Vascular Provider 10/05/20 04/02/22 Diana Desir, [facility] [address] [place] [address] Pharmacist Pharmacist 04/17/21 Rain Galaviz PA-C [address] [facility] [place] [address] Physician Oncology Registrar Dermatology 04/28/21 Summer Lara MD [address] [place] [address] Assigned OBGYN Provider 05/10/2105/23 Summer Lara MD [address] [place], [place] [address] Assigned OBGYN Provider 05/31/21 Summer Lara MD [address] [place] [address] Assigned OBGYN Provider 05/24/2105/30 Tavia Wyatt MD [address] [place] [address] Dermatology 07/14/21 Johnny Murillo MD [address] [facility] [address] [place] [address] Assigned Musculoskeletal Provider 08/30/21 03/17/22 Erica Farrell APRN KITCHEN RUNNER [address] [facility] [address] [place] [address] Nurse Practitioner Cardiovascular Disease 09/09/21 Teresita Bean [facility] [address] [facility] [place] [id number] Pharmacist Pharmacist 09/24/21 09/29/21 Tavia Wyatt MD Assigned Surgical Provider 11/29/21 05/07/22 Diana Desir, [facility] [address] [place] [address] Assigned MTM Pharmacist 01/02/22 Rich Barrett MD [address] [phone] Physician Ophthalmology 01/21/22 Neil Kent MD [address] [place], [place] [address] Dermatology 02/24/22 Roney Story DPM [address] [facility] [address] [place] [address] Assigned Musculoskeletal Provider 03/20/22 08/13/22 Erica Farrell APRN KITCHEN RUNNER [address] [place] [address] Assigned Heart and Vascular Provider 04/03/22 04/16/22 Diana Desir, [facility] [address] [place] [address] Assigned MTM Pharmacist 04/07/22 Frankie Jelena GarciaSONJA [address] [facility] [place] [address] Assigned Surgical Provider 05/08/22 10/08/22 Galo Burrell MD Assigned Heart and Vascular Provider 04/17/22 06/11/22 Livan Sharif MD [address] [place] [address] Cardiovascular Disease 05/14/22 Livan Sharif MD [address] [place] [address] Assigned Heart and Vascular Provider 06/12/22 07/23/22 Catherine Cm MD [address] [place] [address] Cardiovascular Disease 07/21/22 Valery Veronica, PA-C [address] [place] [address] Physician Oncology Registrar Dermatology 07/21/22 Catherine Cm MD [address] [place] [address] Assigned Heart and Vascular Provider 07/24/22 11/05/22 Johnny Murillo MD [address] [address] Assigned Musculoskeletal Provider 08/14/22 10/08/22 Brea Quinn APRN KITCHEN RUNNER [address] [place] [address] Nurse Practitioner Dermatology 09/21/22 Brea Quinn APRN KITCHEN RUNNER [address] [place] [id number] Assigned Surgical Provider 10/09/22 05/01/24 [place] [address] [place] [address] Assigned Musculoskeletal Provider 10/09/22 05/01/24 Livan Sharif MD [address] [facility] [address] [place] [id number] Assigned Heart and Vascular Provider 11/06/22 11/12/22 Catherine Cm MD [address] [facility] [address] [place] [id number] Assigned Heart and Vascular Provider 11/13/22 05/27/23 Sydnie Martinez RN Personal Advocate & Liaison (PAL) Family Medicine 03/28/23 07/31/23 Alfonso Renteria MD [address] [facility] 200 [place] [address] Assigned Neuroscience Provider 04/02/23 Cheng Todd PA-C [address] [place] [address] Assigned PCP 04/30/23 07/15/23 Radha Lomeli APRN KITCHEN RUNNER [address] [place] [id number] Assigned Heart and Vascular Provider 05/28/23 Jelena David OD [address] [facility] [place] [address] MD Ophthalmology 06/15/23 Pao Joseph, VJ Personal Advocate & Liaison (PAL) Nurse 08/01/23 11/07/23 Esha Grimm PA-C [address] [place] [phone] Assigned PCP 07/16/23 Valery Veronica PA-C [address] [place] [address]38[address] Physician Oncology Registrar Dermatology 09/19/23 Rey Tay MD [address] [place] [address] [phone] Gastroenterology 09/20/23 Rocky Zepeda DO [address] [place] [address] Physician Gastroenterology 09/20/23 Philip Dumont MD [address] [place] [address] Physician Ophthalmology 09/22/23 Meredith Carrera PA-C [address] [place] [address] Assigned Gastroenterology Provider 11/01/23 Neil Kent MD [address] [place] [address] Dermatology 11/02/23 [place] [address] [address] Neurological Surgery 12/26/23 Audrey Waite PA-C 500 [place] [address] Physician Oncology Registrar Dermatology 02/28/24 Valery Veronica PA-C 308643 [address], [place] [address] Physician Oncology Registrar Dermatology 04/10/24 documented as of this encounter
--- OUTSIDE RECORDS SUMMARY | 2024-05-27 08:53 | XMS_ITS | Encounter Summary ---
Author Organization [facility] Address [address] [place] [address] Care Team Providers Care Clinical Transformation Specialist Name Role Phone Lita Oseguera Unavailable Unavailable Marija Edgar APRN QUENCHING MACHINE OPERATOR Primary Care Provider + Chanelle Mccann APRN CNM Unavailab le Kyara De La Fuente RN Unavailable [phone] Marija Edgar APRN QUENCHING MACHINE OPERATOR Unavailable [phone] Mynor Broussard MD Unavailable [phone] Keisha Dotson MD Unavailable Galo Burrell MD Unavailable Unavailable Cristina Wood Unavailable Diana Desir [facility] Unavailable Rain Galaviz PA-C Unavailable Summer Lara MD Unavailable [phone] Summer Lara MD Unavailable [phone] Summer Lara MD Unavailable [phone] Tavia Wyatt MD Unavailable Unavailable Johnny Murillo MD Unavailable Erica Farrell APRN QUENCHING MACHINE OPERATOR Unavailable Teresita Bean Walter [facility] Unavailable Tavia Wyatt MD Unavailable Unavailable Diana Desir [facility] Unavailable [phone] Rich Barrett MD Unavailable [phone] Neil Kent MD Unavailable Roney StoryM Unavailable [phone] Erica Farrell [employer]ANT SUPERVISOR QUENCHING MACHINE OPERATOR Unavailable + Diana Desir [facility] Unavailable [phone] Jelena David OD Unavailable Galo Burrell MD Unavailable Unavailable Livan Sharif MD Unavailable + Livan Sharif MD Unavailable + Catherine Cm MD Unavailable + Valery Veronica PA-C Unavailable [phone] Catherine Cm MD Unavailable + Johnny Murillo MD Unavailable [phone] Brea Quinn [employer] PLANT SUPERVISOR QUENCHING MACHINE OPERATOR Unavailable [phone] Brea Quinn [employer] PLANT SUPERVISOR QUENCHING MACHINE OPERATOR Unavailable [phone] Jose Francisco Johnson MD Unavailable Livan Sharif MD Unavailable + Catherine Cm MD Unavailable + Sydnie Martinez RN Unavailable Unavailable Alfonso Renteria MD Unavailable [phone] Esha Grimm PA-C Primary Care Provider Cheng Todd PA-C Unavailable [phone] Radha Lomeli [employer]ANT SUPERVISOR QUENCHING MACHINE OPERATOR Unavailable [phone] Jelena David OD Unavailable Pao Joseph RN Unavailable Unavailable Esha Grimm PA-C Unavailable [phone] Valery Veronica PA-C Unavailable Rey Tay MD Unavailable Rocky Zepeda DO Unavailable Philip Dumont MD Unavailable [phone] Meredith Carrera PA-C Unavailable [phone] Neil [place] MD Unavailable Juan Pablo Emmanuel MD Unavailable Audrey Waite PA-C Unavailable [phone] Valery Veronica PA-C Unavailable Encounter Details Date Type Department Care Team (Late st Contact Info) Description 02/06/2021 [facility] [address] [address] Medina Diopview Social History Tobacco Use Types [...] Answer Date Recorded PHQ-2 Score 3 09/29/2020 [facility] - Occupational Stress Questionnaire Answer Date [...] a senior care (including now)? No 08/11/2020 [place] Depression Scale Answer Date Recorded [place] Depression Score 5 01/14/2021 Last EPDS Self Harm Result Not on file 01/14 Education Answer Date Recorded What is the highest level of school you have completed or the highest degree you have received? 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 MAILMASTER Gender Identity Female 03/02/2021 5:45 PM CDT [...] st Contact Info) Description 05/31/2024 8:40 AM MAILMASTER Therapy Visit [facility] [address] [place] [address] Ingris Thompson, PT [facility] [address] [place] [id number] 05/31/2024 3:30 PM MAILMASTER Office Visit [facility] [id number] [place] [address] Audrey Díaz, Herminia Koo MD [facility] [place] [address] 06/04/2024 3:30 PM MAILMASTER Office Visit [place] [address] [facility] [address] [place] [phone] Jelena David, [address] [facility] [place] [address] 06/11/2024 10:30 AM MAILMASTER Appointment [facility] Res[facility] Therapy [address] [place] [phone] Spec, Nurse Only Med 06/18/2024 2:50 PM MAILMASTER Therapy Visit [facility] [address] [place] [phone] Ingris Thompson, PT [facility] [address] [facility] [address] [place], [place] [address] 06/21/2024 2:00 PM MAILMASTER Office Visit [facility] [place] [address] [place] [address], [address] [place] [phone] [place] [address] [place], [place] [address] Johnny Penn MD [address] [facility] [place] [id number] 06/25/2024 8:30 AM MAILMASTER Office Visit [address] [phone] Valery Veronica PA-C [address] [place] [address] 11/28/2024 7:45 AM CDT Virtual Visit [facility] [address] 4th [place] [phone] Meredith Carrera PA-C [address] [place] [address] documented as of this encounter Visit Diagnoses Not on filedocumented in this encounter Additional Health Concerns Infection Onset Date Last Indicated Resolved Time Rule Out COVID-19 05/11/2021 05/11/2021 05/13/2021 10:18 AM CDT Rule Out COVID-19 07/13/2021 07/13/2021 07/14/2021 3:04 PM MAILMASTER Rule Out COVID-19 07/18/2021 07/18/2021 07/20/2021 1:56 PM MAILMASTER COVID-19 07/18/2021 07/18/2021 08/08/2021 11:3 9 PM MAILMASTER Rule Out COVID-19 12/18/2021 12/18/2021 12/19/2021 11:34 AM CDT Rule Out COVID-19 02/24/2022 02/24/2022 02/25/2022 1:08 PM CDT Rule Out COVID-19 04/26/2022 04/26/2022 04/26/2022 6:47 AM CDT Rule Out COVID-19 05/17/2022 05/17/2022 05/17/2022 10:20 PM MAILMASTER Rule Out COVID-19 06/09/2022 06/09/2022 06/09/2022 9:35 AM MAILMASTER COVID-19 06/09/2022 06/09/2022 06/30/2022 11:4 1 PM MAILMASTER Rule Out COVID-19 11/10/2022 11/10/2022 11/11/2022 12:17 PM CDT Rule Out COVID-19 03/07/2023 03/07/2023 03/07/2023 1:20 PM CDT Rule Out COVID-19 12/26/2023 12/26/2023 12/26/2023 9:50 AM CDT Rule Out COVID-19 04/09/2024 04/09/2024 04/10/2024 6:48 PM CDT Assessment Noted Time PHQ-9 Depression Total Score: 6 09/30/19 3:25 PM CDT documented as of this encounter Care Teams Clinical Transformation Specialist Relationship Specialty Start Date End Date Marija Edgar APRN QUENCHING MACHINE OPERATOR PCP - General Nurse Practitioner 04/30/20 04/14/23 Esha Grimm PA-C [address] [place] [phone] PCP - General Family Medicine 05/04/23 Lita Oseguera Personal Advocate & Liaison (PAL) 02/28/20 03/27/23 Chanelle Mccann APRN CNM [address] [place] [address] [address] [place], [place] 8732[address] Assigned OBGYN Provider 05/02/2005/09 Kyara De La Fuente, RN Specialty Physician Assistant Primary Care Neurology 06/04/20 03/05/21 Marija Edgar APRN QUENCHING MACHINE OPERATOR Assigned PCP 06/08/20 04/29/23 Mynor Broussard MD [address] [facility] 500 [place] [address] Assigned Surgical Provider 06/01/20 11/28/21 Keisha Dotson MD 704 [place] [address] Assigned Neuroscience Provider 06/04/20 04/01/23 Galo Burrell MD Assigned Heart and Vascular Provider 10/05/20 04/02/22 Cristina Wood Financial Resource Worker 02/09/21 02/09/21 [facility] [address] [place] [address] Pharmacist Pharmacist 04/17/21 Rain Galaviz PA-C [address] [place] [address] [place] [address] Physician Driver Messenger Dermatology 04/28/21 Summer Lara MD [address] [place] [address] Assigned OBGYN Provider 05/10/2105/23 Summer Lara MD [address] [place] [address] Assigned OBGYN Provider 05/31/21 2 Summer Lara MD [address] [place] [address] Assigned OBGYN Provider 05/24/2105/30 Tavia Wyatt MD [address] [place] [address] Dermatology 07/14/21 Johnny Murillo MD [address] [place] [address] Assigned Musculoskeletal Provider 08/30/21 03/17/22 Erica Farrell APRN QUENCHING MACHINE OPERATOR [address] [facility] [address] [place] [address] Nurse Practitioner Cardiovascular Disease 09/09/21 Teresita Bean, [facility] [address] [facility] [address] Pharmacist Pharmacist 09/24/21 09/29/21 Tavia Wyatt MD Assigned Surgical Provider 11/29/21 05/07/22 Diana Desir, [facility] [address] [place] [address] Assigned MTM Pharmacist 01/02/22 Rich Barrett MD [address] 2328[address] Physician Ophthalmology 01/21/22 Neil Kent MD 500 [place] [address] Dermatology 02/24/22 Roney Story DPM [address] [facility] [address] [place], [place] [address] Assigned Musculoskeletal Provider 03/20/22 08/13/22 Erica Farrell APRN QUENCHING MACHINE OPERATOR [address] [place] [address] Assigned Heart and Vascular Provider 04/03/22 04/16/22 Diana Desir, [facility] [address] [place], [place] [address] Assigned MTM Pharmacist 04/07/22 Frankie Jelena SONJA Garcia [address] [facility] [place] [address] Assigned Surgical Provider 05/08/22 10/08/22 Galo Burrell MD Assigned Heart and Vascular Provider 04/17/22 06/11/22 Livan Sharif MD [address] [place], [place] [address] Cardiovascular Disease 05/14/22 Livan Sharif MD [address] [place] [address] Assigned Heart and Vascular Provider 06/12/22 07/23/22 Catherine Cm MD [address] [place] [address] Cardiovascular Disease 07/21/22 Valery Veronica PAUcheC [address] [place] [address] Physician Driver Messenger Dermatology 07/21/22 Catherine Cm MD [address] [place], [place] 4[address] Assigned Heart and Vascular Provider 07/24/22 11/05/22 Johnny Murillo MD [address] [place] [address] Assigned Musculoskeletal Provider 08/14/22 10/08/22 Brea Quinn APRN QUENCHING MACHINE OPERATOR [address] [facility] [place] [address] Nurse Practitioner Dermatology 09/21/22 Brea Quinn APRN QUENCHING MACHINE OPERATOR [address] [facility] [place] [address] Assigned Surgical Provider 10/09/22 05/01/24 [place] [address] [facility] [address] [place], [place] [address] Assigned Musculoskeletal Provider 10/09/22 05/01/24 Livan Sharif MD [address] [facility] [address] [place] [address] Assigned Heart and Vascular Provider 11/06/22 11/12/22 Catherine Cm MD [address] [facility] [address] [place] [address] Assigned Heart and Vascular Provider 11/13/22 05/27/23 Sydnie Martinez RN Personal Advocate & Liaison (PAL) Family Medicine 03/28/23 07/31/23 Alfonso Renteria MD [address] [facility] [address] [place] [address] Assigned Neuroscience Provider 04/02/23 Cheng Todd PA-C [address] [place] [address] Assigned PCP 04/30/23 07/15/23 Radha Lomeli APRN CNP [address] [facility] [address] [place] [address] Assigned Heart and Vascular Provider 05/28/23 Jelena Davdi OD [facility] [facility] [place] [address] MD Ophthalmology 06/15/23 Pao Joseph, VJ Personal Advocate & Liaison (PAL) Nurse 08/01/23 11/07/23 Esha Grimm PA-C [address] [place] [phone] Assigned PCP 07/16/23 Valery Veronica PA-C [address] [place] [address] 7175[address] Physician Driver Messenger Dermatology 09/19/23 Rey Tay MD [address] [place] [address] Gastroenterology 09/20/23 Rocky Zepeda DO [address] [place] [address] 416935 Physician Gastroenterology 09/20/23 Philip Dumont MD [address] [place] [address] Physician Ophthalmology 09/22/23 Meredith Carrera PA-C [address] [place] [address] Assigned Gastroenterology Provider 11/01/23 Neil Kent MD [address] [place] [address] Dermatology 11/02/23 [place] [address] [address] Neurological Surgery 12/26/23 Audrey Waite PA-C 500 [place] [address] Physician Driver Messenger Dermatology 02/28/24 Valery Veronica PA-C [address] [place] [address] Physician Driver Messenger Dermatology 04/10/24 documented as of this encounter
--- OUTSIDE RECORDS SUMMARY | 2024-05-27 08:53 | XMS_ITS | Encounter Summary ---
Author Organization [facility] Address [address] [place] [address] Care Team Providers Care Manager Highway Name Role Phone Lita Oseguera Unavailable Unavailable Marija Edgar GAS ATTENDANT CATIA DESIGNER Primary Care Provider + Chanelle Mccann GAS ATTENDANT CN Unavailab le Marija Edgar APRN CATIA DESIGNER Unavailable [phone] Mynor Broussard MD Unavailable [phone] Keisha Dotson MD Unavailable Galo Burrell MD Unavailable Unavailable [facility] Unavailable Rain Galaviz PA-C Unavailable Summer Lara MD Unavailable Summer Lara MD Unavailable [phone] Summer Lara MD Unavailable Tavia Wyatt MD Unavailable Unavailable Johnny Murillo MD Unavailable [phone] Erica Farrell GAS ATTENDANT CATIA DESIGNER Unavailable Teresita Bean [facility] Unavailable Tavia Wyatt MD Unavailable Unavailable Desir, Diana T RPH Unavailable [phone] Rich Barrett MD Unavailable Neil Kent MD Unavailable Roney Story DPM Unavailable [phone] Erica Farrell GAS ATTENDANT CATIA DESIGNER Unavailable + Thang Diana Stanislav RP Unavailable [phone] Jelena David OD Unavailable Galo Burrell MD Unavailable Unavailable Livan hSarif MD Unavailable Livan Sharif MD Unavailable + Catherine Cm MD Unavailable + Valery Veronica PA-C Unavailable [phone] Catherine Cm MD Unavailable + Johnny Murillo MD Unavailable [phone] Brea Quinn GAS ATTENDANT CATIA DESIGNER Unavailable [phone] Brea Quinn GAS ATTENDANT CATIA DESIGNER Unavailable [phone] Jose Francisco Johnson MD Unavailable Livan Sharif MD Unavailable + Catherine Cm MD Unavailable + Sydnie Martinez RN Unavailable Unavailable Alfonso Renteria MD Unavailable Esha Grimm PA-C Primary Care Provider Cheng Todd PA-C Unavailable Radha Lomeli GAS ATTENDANT CATIA DESIGNER Unavailable [phone] Jelena David OD Unavailable [phone] Pao Joseph RN Unavailable Unavailable Esha Grimm-C Unavailable [phone] Valery Veronica-C Unavailable [phone] Rey Tay MD Unavailable Rocky Zepeda DO Unavailable Philip Dumont MD Unavailable [phone] Meredith Carrera-C Unavailable [phone] Neil Kent MD Unavailable Juan Pablo Emmanuel MD Unavailable [phone] Audrey Waite PA-C Unavailable [phone] Valery Veronica PA-C Unavailable [phone] Encounter Details Date Type Department Care Team (Late st Contact Info) Description 04/28/2021 MyC Medical Advice [address] [phone] Lauren Gan, RN Social History Tobacco Use [...] do you attend chur or rastafari services? More than 4 times [...] Answer Date Recorded PHQ-2 Score 0 04/02/2021 [facility] [place] of Occupat ional Health - Occupational Stress [...] in a snf (including now)? No 08/11/2020 Withams Depression Scale Answer Date Recorded Withams Depression Score 5 01/14/2021 Last EPDS Self Harm Result Not on file 01/14 Education Answer Date Recorded What is the highest level of school you have completed or the highest degree you have received? 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 HOOKMAN Gender Identity Female 03/02/2021 5:45 PM CDT [...] st Contact Info) Description 05/31/2024 8:40 AM HOOKMAN Therapy Visit [facility] Rehabilitation Services [address] [place] [address] Ingris Thompson, PT [facility] [address] [place] [address] 05/31/2024 3:30 PM HOOKMAN Office Visit [facility] Specialty [address] [address] Audrey Díaz PA-C Khan, Waseem, MD [address] [place], [place] [phone] 06/04/2024 3:30 PM HOOKMAN [facility] [address] [facility] [address] [place] [phone] Jelena David, [address] [facility] [place] [address] 06/11/2024 10:30 AM HOOKMAN Appointment [facility] Respiratory Therapy [address] [place] [phone] Spec, Nurse Only Med 06/18/2024 2:50 PM HOOKMAN Therapy Visit [facility] Rehabilitation Services [address] [place] [phone] Ingris Thompson, PT [facility] 6 [facility] 106 [place], [place] [address] 06/21/2024 2:00 PM HOOKMAN Office Visit [facility] Neurology Clinics [facility] [address] [place] [address], [address] [place] [phone] [place] [address] [place] [address] Johnny Penn MD 6500 [place], [place] 4[address]35 06/25/2024 8:30 AM HOOKMAN Office Visit [address] [phone] Valery Veronica PA-C [address] [place] [address] 339955 11/28/2024 7:45 AM CDT Virtual Visit [facility] Gastroenterology Clinic [address]th [place] [phone] Meredith Carrera PA-C [address] [place] [address] documented as of this encounter Visit Diagnoses Not on filedocumented in this encounter Additional Health Concerns Infection Onset Date Last Indicated Resolved Time Rule Out COVID-19 05/11/2021 05/11/2021 05/13/2021 10:18 AM CDT Rule Out COVID-19 07/13/2021 07/13/2021 07/14/2021 3:04 PM HOOKMAN Rule Out COVID-19 07/18/2021 07/18/2021 07/20/2021 1:56 PM HOOKMAN COVID-19 07/18/2021 07/18/2021 08/08/2021 11:3 9 PM HOOKMAN Rule Out COVID-19 12/18/2021 12/18/2021 12/19/2021 11:34 AM CDT Rule Out COVID-19 02/24/2022 02/24/2022 02/25/2022 1:08 PM CDT Rule Out COVID-19 04/26/2022 04/26/2022 04/26/2022 6:47 AM CDT Rule Out COVID-19 05/17/2022 05/17/2022 05/17/2022 10:20 PM HOOKMAN Rule Out COVID-19 06/09/2022 06/09/2022 06/09/2022 9:35 AM HOOKMAN COVID-19 06/09/2022 06/09/2022 06/30/2022 11:4 1 PM HOOKMAN Rule Out COVID-19 11/10/2022 11/10/2022 11/11/2022 12:17 PM CDT Rule Out COVID-19 03/07/2023 03/07/2023 03/07/2023 1:20 PM CDT Rule Out COVID-19 12/26/2023 12/26/202312/2512/26/2023 9:50 AM CDT Rule Out COVID-19 04/09/2024 04/09/2024 04/10/2024 6:48 PM CDT Assessment Noted Time PHQ-9 Depression Total Score: 2 04/02/20 10:19 AM CDT documented as of this encounter Care Teams Manager Highway Relationship Specialty Start Date End Date Marija Edgar APRN CATIA DESIGNER PCP - General Nurse Practitioner 04/30/20 04/14/23 Esha Grimm PA-C [address] [place] [phone] PCP - General Family Medicine 05/04/23 Lita Oseguera Personal Advocate & Liaison (PAL) 02/28/20 03/27/23 [place] [address] [place] [address] 200 [place] [address] Assigned OBGYN Provider 05/02/2005/09 Marija Edgar APRN CATIA DESIGNER Assigned PCP 06/08/20 04/29/23 Mynor Broussard MD 6363 [facility] 500 [place] [address] Assigned Surgical Provider 06/01/20 11/28/21 Keisha Dotson MD 909 [place], [place] 507485 Assigned Neuroscience Provider 06/04/20 04/01/23 Galo Burrell MD Assigned Heart and Vascular Provider 10/05/20 04/02/22 Diana Desir, [facility] [address] [place] [address] Pharmacist Pharmacist 04/17/21 Rain Galaviz PA-C [address] [place] [address] [place] [address] Physician Event Organizer Dermatology 04/28/21 Summer Lara MD [address] [place] [address] Assigned OBGYN Provider 05/10/2105/23 Summer Lara MD [address] [place] [address] Assigned OBGYN Provider 05/31/21 Summer Lara MD [address] [place] [address] Assigned OBGYN Provider 05/24/2105/30 Tavia Wyatt MD [address] [place] [address] Dermatology 07/14/21 Johnny Murillo MD [address] [place] [address] Assigned Musculoskeletal Provider 08/30/21 03/17/22 Erica Farrell APRN CNP 6405 [facility] [address] [place] [address] Nurse Practitioner Cardiovascular Disease 09/09/21 Te[facility]ita Bean [facility] [address] [facility] [address] [place], [place] [phone] Pharmacist Pharmacist 09/24/21 09/29/21 Tavia Wyatt MD Assigned Surgical Provider 11/29/21 05/07/22 [facility] 3033 [place] [address] Assigned MTM Pharmacist 01/02/22 Rich Barrett MD [address] [place] [address] Physician Ophthalmology 01/21/22 Neil Kent MD 500 [place] [address] Dermatology 02/24/22 [place] D[place] [address] [facility] 300 [place] [address] Assigned Musculoskeletal Provider 03/20/22 08/13/22 Erica Farrell APRN CATIA DESIGNER [facility]0 [place] [address] Assigned Heart and Vascular Provider 04/03/22 04/16/22 [facility] [address] [place] [address] Assigned MTM Pharmacist 04/07/22 Jelena David OD [address] [place] [address] [place] [address] Assigned Surgical Provider 05/08/22 10/08/22 Galo Burrell MD Assigned Heart and Vascular Provider 04/17/22 06/11/22 Livan Sharif MD [address], [facility] [address] [place], [place] 6840[address] Cardiovascular Disease 05/14/22 Livan Sharif MD [address], [facility] [address] [place] 7[address]885 Assigned Heart and Vascular Provider 06/12/22 07/23/22 Catherine Cm MD [address] [facility]00 [place] 453765 Cardiovascular Disease 07/21/22 Valery Veronica, PA-C [address] [place] [address] 658005 Physician Event Organizer Dermatology 07/21/22 Catherine Cm MD [address] [facility] [address] [place], [place] 578825 Assigned Heart and Vascular Provider 07/24/22 11/05/22 Johnny Murillo MD [facility] [address] 716704 Assigned Musculoskeletal Provider 08/14/22 10/08/22 Brea Quinn APRN CATIA DESIGNER [address] [place] [address] 688075 Nurse Practitioner Dermatology 09/21/22 Brea Quinn APRN CATIA DESIGNER [address] [place] [place] [address] Assigned Surgical Provider 10/09/22 05/01/24 [place] [address] [facility] 300 [place] [address] Assigned Musculoskeletal Provider 10/09/22 05/01/24 Livan Sharif MD [address] [facility] [address] [place] [address] Assigned Heart and Vascular Provider 11/06/22 11/12/22 Catherine Cm MD [address] [place] [address] [place] [address] Assigned Heart and Vascular Provider 11/13/22 05/27/23 Sydnie Martinez RN Personal Advocate & Liaison (PAL) Family Medicine 03/28/23 07/31/23 Alfonso Renteria MD 5775 [facility] 200 [place] [address] Assigned Neuroscience Provider 04/02/23 Cheng Todd PA-C [address] [place] [address] Assigned PCP 04/30/23 07/15/23 Radha Lomeli APRN CATIA DESIGNER [address] [place] [address] Assigned Heart and Vascular Provider 05/28/23 Tommy Davidmao [place] [address] [facility] [address] MD Ophthalmology 06/15/23 Pao Joseph, RN Personal Advocate & Liaison (PAL) Nurse 08/01/23 11/07/23 Esha Grimm PA-C [address] [place] [phone] Assigned PCP 07/16/23 Valery Veronica PA-C [address] [place] [address] Physician Event Organizer Dermatology 09/19/23 Rey Tay MD [address] [place] [address] MD Gastroenterology 09/20/23 Rocky Zepeda DO [address] [place] [address] 163695 Physician Gastroenterology 09/20/23 Philip Dumont MD [address] [place] [address] 759925 Physician Ophthalmology 09/22/23 Meredith Carrera PA-C [address] [place] [address] 167855 Assigned Gastroenterology Provider 11/01/23 Neil Kent MD [address] [address] Dermatology 11/02/23 [place] [address] [address] Neurological Surgery 12/26/23 Audrey [place] PA-C 500 [place], [place] 146475 Physician Event Organizer Dermatology 02/28/24 Valery Veronica PA-C [address] [place] [address] Physician Event Organizer Dermatology 04/10/24 documented as of this encounter
--- OUTSIDE RECORDS SUMMARY | 2024-05-27 08:53 | XMS_ITS | Encounter Summary ---
Author Organization [facility] Address [address] [place] [address] Care Team Providers Care Animal Shelter Clerk Name Role Phone Lita Oseguera Unavailable Unavailable Marija Edgar DIVERSIFIED CROPS FARMER REFERRAL SPECIALIST Primary Care Provider + Chanelle Mccann DIVERSIFIED CROPS FARMER CN Unavailab le Marija Edgar APRN REFERRAL SPECIALIST Unavailable Mynor Broussard MD Unavailable [phone] Keisha Dotson MD Unavailable Galo Burrell MD Unavailable Unavailable Diana Desir [facility] Unavailable [phone] Rain Galaviz PA-C Unavailable Summer Lara MD Unavailable [phone] Summer Lara MD Unavailable [phone] Summer Lara MD Unavailable [phone] Tavia Wyatt MD Unavailable Unavailable Johnny Murillo MD Unavailable [phone] Erica Farrell DIVERSIFIED CROPS FARMER REFERRAL SPECIALIST Unavailable Teresita Bean [facility] Unavailable Tavia Wyatt MD Unavailable Unavailable Desir, Diana T RPH Unavailable [phone] Rich Barrett MD Unavailable Neil Kent MD Unavailable Roney Story DPM Unavailable [phone] Erica Farrell DIVERSIFIED CROPS FARMER REFERRAL SPECIALIST Unavailable + Thang Diana Stanislav RP Unavailable [phone] Jelena David OD Unavailable Galo Burrell MD Unavailable Unavailable Livan Sharif MD Unavailable Livan Sharif MD Unavailable + Catherine Cm MD Unavailable + Valery Veronica PA-C Unavailable [phone] Catherine Cm MD Unavailable + Johnny Murillo MD Unavailable [phone] Brea Quinn DIVERSIFIED CROPS FARMER REFERRAL SPECIALIST Unavailable [phone] Brea Quinn DIVERSIFIED CROPS FARMER REFERRAL SPECIALIST Unavailable [phone] Jose Francisco Johnson MD Unavailable Livan Sharif MD Unavailable + Catherine Cm MD Unavailable + Sydnie Martinez RN Unavailable Unavailable Alfonso Renteria MD Unavailable Esha Grimm PA-C Primary Care Provider Cheng Todd PA-C Unavailable Radha Lomeli DIVERSIFIED CROPS FARMER REFERRAL SPECIALIST Unavailable [phone] Jelena David OD Unavailable [phone] Pao Joseph RN Unavailable Unavailable Esha Grimm-C Unavailable [phone] Jeremías, Valery D PA-C Unavailable [phone] Rey Tay MD Unavailable Rocky Zepeda DO Unavailable Philip Dumont MD Unavailable [phone] Meredith Carrera PA-C Unavailable [phone] Neil [place] MD Unavailable Juan Pablo Emmanuel MD Unavailable [phone] Audrey Waite PA-C Unavailable [phone] Valery Veronica PA-C Unavailable Encounter Details Date Type Department Care Team (Late st Contact Info) Description 04/17/2021 [facility] [place] [address] [address] Marija Edgar APRN [address] [place] [address] Social History Tobacco Use Types [...] Answer Date Recorded PHQ-2 Score 0 04/02/2021 [facility] of Occupat ional Health - [...] in a mcfp (including now)? No 08/11/2020 [place] Depression Scale Answer Date Recorded [place] [...] PM CDT Legal Sex Female 4:13 AM FASHION SHOW DIRECTOR Gender Identity Female 03/02/2021 5:45 PM [...] st Contact Info) Description 05/31/2024 8:40 AM FASHION SHOW DIRECTOR Therapy Visit [facility] Rehabilitation Services [address] [place] [address] Ingris Thompson, PT [facility] [address] [place] [address] 682205 05/31/2024 3:30 PM FASHION SHOW DIRECTOR Office Visit [facility] Specialty Clinic [place] [address]2745 [place] [phone] Audrey Díaz, Herminia Koo MD 1875 [place] [address] 06/04/2024 3:30 PM FASHION SHOW DIRECTOR [facility] [address] [place] [phone] Jelena David, OD [address] [facility] [address] 06/11/2024 10:30 AM FASHION SHOW DIRECTOR Appointment [facility] Respiratory Therapy [address] [place] [address] Spec, Nurse Only Med 06/18/2024 2:50 PM FASHION SHOW DIRECTOR Therapy Visit [facility] Rehabilitation Services [place] [address] [place] [address] [address] [place] [phone] Ingris Thompson, PT [facility] [address] [place] [address] 106 [place], [place] [address] 06/21/2024 2:00 PM FASHION SHOW DIRECTOR Office Visit [facility] Neurology Clinics - [place] [address] [place] [address] [address] [place] [phone] [place] [address] [place] [address] Johnny Penn MD [address] [place] 488[address] 06/25/2024 8:30 AM FASHION SHOW DIRECTOR Office Visit [address] [address] Valery Veronica PA-C [address] [place] [address] 11/28/2024 7:45 AM CDT Virtual Visit [facility] Gastroenterology Clinic [address] 4th [place] [address] Meredith Carrera PA-C [address] [place] [address] documented as of this encounter Visit Diagnoses Not on filedocumented in this encounter Additional Health Concerns Infection Onset Date Last Indicated Resolved Time Rule Out COVID-19 05/11/2021 05/11/2021 05/13/2021 10:18 AM CDT Rule Out COVID-19 07/13/2021 07/13/2021 07/14/2021 3:04 PM FASHION SHOW DIRECTOR Rule Out COVID-19 07/18/2021 07/18/2021 07/20/2021 1:56 PM FASHION SHOW DIRECTOR COVID-19 07/18/2021 07/18/2021 08/08/2021 11:3 9 PM FASHION SHOW DIRECTOR Rule Out COVID-19 12/18/2021 12/18/2021 12/19/2021 11:34 AM CDT Rule Out COVID-19 02/24/2022 02/24/2022 02/25/2022 1:08 PM CDT Rule Out COVID-19 04/26/2022 04/26/2022 04/26/2022 6:47 AM CDT Rule Out COVID-19 05/17/2022 05/17/2022 05/17/2022 10:20 PM FASHION SHOW DIRECTOR Rule Out COVID-19 06/09/2022 06/09/2022 06/09/2022 9:35 AM FASHION SHOW DIRECTOR COVID-19 06/09/2022 06/09/2022 06/30/2022 11:4 1 PM FASHION SHOW DIRECTOR Rule Out COVID-19 11/10/2022 11/10/2022 11/11/2022 12:17 PM CDT Rule Out COVID-19 03/07/2023 03/07/2023 03/07/2023 1:20 PM CDT Rule Out COVID-19 12/26/2023 12/26/2023 12/26/2023 9:50 AM CDT Rule Out COVID-19 04/09/2024 04/09/2024 04/10/2024 6:48 PM CDT Assessment Noted Time PHQ-9 Depression Total Score: 2 04/02/20 10:19 AM CDT documented as of this encounter Care Teams Animal Shelter Clerk Relationship Specialty Start Date End Date Marija Edgar APRN REFERRAL SPECIALIST PCP - General Nurse Practitioner 04/30/20 04/14/23 Esha Grimm PA-C [address] [place] [phone] PCP - General Family Medicine 05/04/23 Lita Oseguera Personal Advocate & Liaison (PAL) 02/28/20 03/27/23 [place] [address] [place] [address] 200 [place], [place] 261437 Assigned OBGYN Provider 05/02/2005/09 Marija Edgar APRN REFERRAL SPECIALIST Assigned PCP 06/08/20 04/29/23 Mynor Broussard MD 6363 [facility] 500 [place], [place] 151205 Assigned Surgical Provider 06/01/20 11/28/21 Keisha Dotson MD [address] [place] [address] 362545 Assigned Neuroscience Provider 06/04/20 04/01/23 Galo Burrell MD Assigned Heart and Vascular Provider 10/05/20 04/02/22 Diana Desir, [facility] [address] [place] [address] Pharmacist Pharmacist 04/17/21 Rain Galaviz PA-C [address] [place] [address] [place] [address] [address] Driver Dermatology 04/28/21 Summer Lara MD [address] [place], [place] 474834 Assigned OBGYN Provider 05/10/2105/23 Summer Lara MD [address] [place], [place] 515[address] Assigned OBGYN Provider 05/31/21 2 Summer Lara MD [address] [place], [place] 788[address] Assigned OBGYN Provider 05/24/2105/30 Tavia Wyatt MD [address] [address] Dermatology 07/14/21 Johnny Murillo MD [address] [facility] [address] [place] [address] Assigned Musculoskeletal Provider 08/30/21 03/17/22 Erica Farrell APRN REFERRAL SPECIALIST 6405 [facility] [address] [place] [address] Nurse Practitioner Cardiovascular Disease 09/09/21 Teresita Bean, [facility] [address] [place] [address] Pharmacist Pharmacist 09/24/21 09/29/21 Tavia Wyatt MD Assigned Surgical Provider 11/29/21 05/07/22 Diana Desir, [facility] [address] [place] [address] Assigned MTM Pharmacist 01/02/22 Rich Barrett MD [address] 660[address] Physician Ophthalmology 01/21/22 Neil [place] MD 500 [place], [place] 0[address]05 Dermatology 02/24/22 [place] D[place] [address] [facility] [address] [place] [address] Assigned Musculoskeletal Provider 03/20/22 08/13/22 Erica Farrell APRN REFERRAL SPECIALIST 1700 [place] [address] Assigned Heart and Vascular Provider 04/03/22 04/16/22 Diana Desir, [facility] [address] [place] [address] Assigned MTM Pharmacist 04/07/22 Frankie Jelena GarciaSONJA [address] [facility] [place] [address] Assigned Surgical Provider 05/08/22 10/08/22 Galo Burrell MD Assigned Heart and Vascular Provider 04/17/22 06/11/22 Livan Sharif MD [address], [place] [address] [place] [address] Cardiovascular Disease 05/14/22 Livan Sharif MD [address], [place] [address] [place] [address] Assigned Heart and Vascular Provider 06/12/22 07/23/22 Catherine Cm MD [address] [place] [address] [place] [address] Cardiovascular Disease 07/21/22 Valery Veronica, PA-C 909 [place] [address] [address] Sales [address] Driver Dermatology 07/21/22 Catherine Cm MD [address] [place] [address] [place] [address] Assigned Heart and Vascular Provider 07/24/22 11/05/22 Johnny Murillo MD [address] [place] [address] Assigned Musculoskeletal Provider 08/14/22 10/08/22 Brea Quinn APRN REFERRAL SPECIALIST 500 [place] [address] Nurse Practitioner Dermatology 09/21/22 Brea Quinn APRN REFERRAL SPECIALIST 6401 [facility] [place] [address] Assigned Surgical Provider 10/09/22 05/01/24 [place] [address] [address] [facility] 300 [place] [address] Assigned Musculoskeletal Provider 10/09/22 05/01/24 Livan Sharif MD [address] [facility] [address] [place] [address] Assigned Heart and Vascular Provider 11/06/22 11/12/22 Catherine Cm MD [address] [place] [address] Assigned Heart and Vascular Provider 11/13/22 05/27/23 Sydnie Martinez RN Personal Advocate & Liaison (PAL) Family Medicine 03/28/23 07/31/23 Alfonso Renteria MD 5775 [facility] 200 [place] [address] Assigned Neuroscience Provider 04/02/23 Cheng Todd PA-C [address] [place] [address] Assigned PCP 04/30/23 07/15/23 Radha Lomeli APRN REFERRAL SPECIALIST [address] [place] [address] Assigned Heart and Vascular Provider 05/28/23 Jelena David OD [address] [facility] [place] [address] MD Ophthalmology 06/15/23 Pao Joseph, VJ Personal Advocate & Liaison (PAL) Nurse 08/01/23 11/07/23 Esha Grimm PA-C [address] [place] [phone] Assigned PCP 07/16/23 Valery Veronica PA-C [address] [place] [address] 103895 Physician Sales Route Driver Dermatology 09/19/23 Rey Tay MD [address] [place] [address] 045335 Gastroenterology 09/20/23 Rocky Zepeda DO [address] [place] [address] 140775 Physician Gastroenterology 09/20/23 Philip Dumont MD [address] [place] [address] 703195 Physician Ophthalmology 09/22/23 Meredith Carrera PA-C [address] [place] [address] Assigned Gastroenterology Provider 11/01/23 Neil Kent MD [address] [address] Dermatology 11/02/23 [place] [address] [place] [address] [address] Neurological Surgery 12/26/23 Audrey Waite PA-C 500 [place] [address] Physician Sales Route Driver Dermatology 02/28/24 Valery Veronica PA-C 286215 [address], [place] [address] [address] Sales [address] Driver Dermatology 04/10/24 documented as of this encounter
--- OUTSIDE RECORDS SUMMARY | 2024-05-27 08:53 | XMS_ITS | Encounter Summary ---
Author Organization [facility] Address [address] [place] [address] Care Team Providers Care Analytics Leader Name Role Phone Lita Oseguera Unavailable Unavailable Marija Edgar ASSOCIATE VICE PRESIDENT SENIOR BUSINESS OBJECTS DEVELOPER Primary Care Provider + Chanelle Mccann ASSOCIATE VICE PRESIDENT CN Unavailab le Marija Edgar APRN SENIOR BUSINESS OBJECTS DEVELOPER Unavailable [phone] Mynor Broussard MD Unavailable [phone] Keisha Dotson MD Unavailable [phone] Galo Burrell MD Unavailable Unavailable Diana Desir [facility] Unavailable Rain Galaviz PA-C Unavailable Summer Lara MD Unavailable [phone] Summer Lara MD Unavailable [phone] Summer Lara MD Unavailable [phone] Tavia Wyatt MD Unavailable Unavailable Johnny Murillo MD Unavailable Erica Farrell ASSOCIATE VICE PRESIDENT SENIOR BUSINESS OBJECTS DEVELOPER Unavailable Teresita Bean [facility] Unavailable [phone] Tavia Wyatt MD Unavailable Unavailable Desir, Diana T RPH Unavailable [phone] Rich Barrett MD Unavailable Neli Kent MD Unavailable Roney Story DPM Unavailable [phone] Erica Farrell ASSOCIATE VICE PRESIDENT SENIOR BUSINESS OBJECTS DEVELOPER Unavailable + Thang Diana Stanislav RP Unavailable [phone] Jelena David OD Unavailable Galo Burrell MD Unavailable Unavailable Livan Sharif MD Unavailable Livan Sharif MD Unavailable + Catherine Cm MD Unavailable + Valery Veronica PA-C Unavailable [phone] Catherine Cm MD Unavailable + Johnny Murillo MD Unavailable [phone] Brea Quinn ASSOCIATE VICE PRESIDENT SENIOR BUSINESS OBJECTS DEVELOPER Unavailable [phone] Brea Quinn ASSOCIATE VICE PRESIDENT SENIOR BUSINESS OBJECTS DEVELOPER Unavailable [phone] Jose Francisco Johnson MD Unavailable Livan Sharif MD Unavailable + Catherine Cm MD Unavailable + Sydnie Martinez RN Unavailable Unavailable Alfonso Renteria MD Unavailable Esha Grimm PA-C Primary Care Provider Cheng Todd PA-C Unavailable Radha Lomeli ASSOCIATE VICE PRESIDENT SENIOR BUSINESS OBJECTS DEVELOPER Unavailable [phone] Jelena David OD Unavailable [phone] Pao Joseph RN Unavailable Unavailable Esha Grimm-C Unavailable [phone] Vaelry Veronica-C Unavailable [phone] Rey Tay MD Unavailable Rocky Zepeda DO Unavailable Philip Dumont MD Unavailable [phone] Meredith CarreraC Unavailable [phone] Neil Kent MD Unavailable Juan Pablo Emmanuel MD Unavailable [phone] Audrey Waite PA-C Unavailable [phone] Valery Veronica PA-C Unavailable [phone] Encounter Details Date Type Department Care Team (Late st Contact Info) Description 05/05/2021 [facility] [address] [phone] Lauren Gan, RN Social History Tobacco Use [...] do you attend chur or anabaptism services? More than 4 times [...] Answer Date Recorded PHQ-2 Score 0 04/02/2021 [facility] [place] [facility] Occupat ional [facility] - Occupational Stress [...] a nursing home (including now)? No 08/11/2020 Gore Depression Scale Answer Date Recorded Gore Depression Score 5 01/14/2021 Last EPDS Self Harm Result Not on file 01/14 Education Answer Date Recorded What is the highest level of school you have completed or the highest degree you have received? 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 MANUFACTURING PRODUCTION TECHNICIAN Gender Identity Female 03/02/2021 5:45 PM [...] st Contact Info) Description 05/31/2024 8:40 AM MANUFACTURING PRODUCTION TECHNICIAN Therapy Visit [facility] Rehabilitation Services [address] [place] [address] Ingris Thompson, PT [facility] [address] [place] [address] 05/31/2024 3:30 PM MANUFACTURING PRODUCTION TECHNICIAN Office Visit [facility] Specialty [address] [phone] Audrey Díaz PA-C Khan, Waseem, MD [address] [place], [place] [phone] 06/04/2024 3:30 PM MANUFACTURING PRODUCTION TECHNICIAN Office Visit [facility] [place] [address] [facility] [address] [place] [phone] Jelena David, OD [address] [facility] [place] [address] 06/11/2024 10:30 AM MANUFACTURING PRODUCTION TECHNICIAN Appointment [facility] Respiratory Therapy [address] [place] [phone] Spec, Nurse Only Med 06/18/2024 2:50 PM MANUFACTURING PRODUCTION TECHNICIAN Therapy Visit [facility] Rehabilitation Services [address] [place] [phone] Ingris Thompson, PT [facility] [address] [facility] [address] [place], [place] [address] 06/21/2024 2:00 PM MANUFACTURING PRODUCTION TECHNICIAN Office Visit [facility] Neurology Clinics [facility] [address] [place] [address], [address] [place] [phone] [place] [address] [place] [address] Johnny Penn MD [address] [place], [place] [address] 06/25/2024 8:30 AM MANUFACTURING PRODUCTION TECHNICIAN Office Visit [address] [phone] Valery Veronica PA-C [address] [place] [address] [phone] 11/28/2024 7:45 AM CDT Virtual Visit [facility] Gastroenterology Clinic [address] [place] [phone] Meredith Carrera PA-C [address] [place] [address] documented as of this encounter Visit Diagnoses Not on filedocumented in this encounter Additional Health Concerns Infection Onset Date Last Indicated Resolved Time Rule Out COVID-19 05/11/2021 05/11/2021 05/13/2021 10:18 AM CDT Rule Out COVID-19 07/13/2021 07/13/2021 07/14/2021 3:04 PM MANUFACTURING PRODUCTION TECHNICIAN Rule Out COVID-19 07/18/2021 07/18/2021 07/20/2021 1:56 PM MANUFACTURING PRODUCTION TECHNICIAN COVID-19 07/18/2021 07/18/2021 08/08/2021 11:3 9 PM MANUFACTURING PRODUCTION TECHNICIAN Rule Out COVID-19 12/18/2021 12/18/2021 12/19/2021 11:34 AM CDT Rule Out COVID-19 02/24/2022 02/24/2022 02/25/2022 1:08 PM CDT Rule Out COVID-19 04/26/2022 04/26/2022 04/26/2022 6:47 AM CDT Rule Out COVID-19 05/17/2022 05/17/2022 05/17/2022 10:20 PM MANUFACTURING PRODUCTION TECHNICIAN Rule Out COVID-19 06/09/2022 06/09/2022 06/09/2022 9:35 AM MANUFACTURING PRODUCTION TECHNICIAN COVID-19 06/09/2022 06/09/2022 06/30/2022 11:4 1 PM MANUFACTURING PRODUCTION TECHNICIAN Rule Out COVID-19 11/10/2022 11/10/2022 11/11/2022 12:17 PM CDT Rule Out COVID-19 03/07/2023 03/07/2023 03/07/2023 1:20 PM CDT Rule Out COVID-19 12/26/2023 12/26/2023 12/26/2023 9:50 AM CDT Rule Out COVID-19 04/09/2024 04/09/2024 04/10/2024 6:48 PM CDT Assessment Noted Time PHQ-9 Depression Total Score: 2 04/02/20 10:19 AM CDT documented as of this encounter Care Teams Analytics Leader Relationship Specialty Start Date End Date Marija Edgar APRN SENIOR BUSINESS OBJECTS DEVELOPER PCP - General Nurse Practitioner 04/30/20 04/14/23 Esha Grimm PA-C [address] [place] [phone] PCP - General Family Medicine 05/04/23 Lita Oseguera Personal Advocate & Liaison (PAL) 02/28/20 03/27/23 [place] [id number] [place] [address] [address] [place] [address] Assigned OBGYN Provider 05/02/2005/09 Marija Edgar APRN SENIOR BUSINESS OBJECTS DEVELOPER Assigned PCP 06/08/20 04/29/23 Mynor Broussard MD [address] [facility] 500 [place] [address] Assigned Surgical Provider 06/01/20 11/28/21 Keisha Dotson MD [address] [place] [address] Assigned Neuroscience Provider 06/04/20 04/01/23 Galo Burrell MD Assigned Heart and Vascular Provider 10/05/20 04/02/22 [facility] [address] [place] [address] Pharmacist Pharmacist 04/17/21 Rain Galaviz PA-C [address] [place] [address] [address] [place] [address] Technician Dermatology 04/28/21 Summer Lara MD [address] [place] [address] Assigned OBGYN Provider 05/10/2105/23 Summer Lara MD [address] [place] [address] Assigned OBGYN Provider 05/31/21 2 Summer Lara MD [address] [place] [address] Assigned OBGYN Provider 05/24/2105/30 Tavia Wyatt MD [address] [place] [address] Dermatology 07/14/21 Johnny Murillo MD [address] [place] [address] Assigned Musculoskeletal Provider 08/30/21 03/17/22 Erica Farrell APRN CNP [address] [facility] [address] [place] [address] Nurse Practitioner Cardiovascular Disease 09/09/21 Teresita Bean [facility] [address] [facility] [address] [place] [phone] Pharmacist Pharmacist 09/24/21 09/29/21 Tavia Wyatt MD Assigned Surgical Provider 11/29/21 05/07/22 [facility] [address] [place] [address] Assigned MTM Pharmacist 01/02/22 Rich Barrett MD [address] [place] [address] Physician Ophthalmology 01/21/22 Neil Kent MD [address] [place] [address] Dermatology 02/24/22 Roney Story DPM [address] [facility] [address] [place] [address] Assigned Musculoskeletal Provider 03/20/22 08/13/22 Erica Farrell APRN SENIOR BUSINESS OBJECTS DEVELOPER [address] [place] [address] Assigned Heart and Vascular Provider 04/03/22 04/16/22 [facility] 3033 [place] [address] Assigned MTM Pharmacist 04/07/22 Jelena David OD [address] [place] [address] [place] [address] Assigned Surgical Provider 05/08/22 10/08/22 Galo Burrell MD Assigned Heart and Vascular Provider 04/17/22 06/11/22 Livan Sharif MD [address], [facility] [address] [place] [address] Cardiovascular Disease 05/14/22 Livan Sharif MD [address], [facility] [address] [place] [phone] Assigned Heart and Vascular Provider 06/12/22 07/23/22 Catherine Cm MD [address] [facility]00 [place] [id number] Cardiovascular Disease 07/21/22 Valery Veronica, PA-C [address] [place] [phone] Engineering Technician Dermatology 07/21/22 Catherine Cm MD [address] [facility]00 [place] [address] Assigned Heart and Vascular Provider 07/24/22 11/05/22 Johnny Murillo MD [facility] [phone] Assigned Musculoskeletal Provider 08/14/22 10/08/22 Brea Quinn APRN SENIOR BUSINESS OBJECTS DEVELOPER [address] [place] [address] [phone] Nurse Practitioner Dermatology 09/21/22 Brea Quinn APRN SENIOR BUSINESS OBJECTS DEVELOPER [address] [place] [address] Assigned Surgical Provider 10/09/22 05/01/24 [place] [address] [address] [place] [address] Assigned Musculoskeletal Provider 10/09/22 05/01/24 Livan Sharif MD [address] [facility] [address] [place] [address] Assigned Heart and Vascular Provider 11/06/22 11/12/22 Catherine Cm MD [address] [place] [address] [place] [address] Assigned Heart and Vascular Provider 11/13/22 05/27/23 Sydnie Martinez, RN Personal Advocate & Liaison (PAL) Family Medicine 03/28/23 07/31/23 Alfonso Renteria MD [address] [facility] 200 [place] [address] Assigned Neuroscience Provider 04/02/23 Cheng Todd PA-C [address] [place] [address] Assigned PCP 04/30/23 07/15/23 Radha Lomeli APRN SENIOR BUSINESS OBJECTS DEVELOPER [address] [place] [address] Assigned Heart and Vascular Provider 05/28/23 Jelena David OD [address] [facility] [place] [address] MD Ophthalmology 06/15/23 Pao Joseph, RN Personal Advocate & Liaison (PAL) Nurse 08/01/23 11/07/23 Esah Grimm PA-C [address] [place] [phone] Assigned PCP 07/16/23 Valery Veronica PA-C [address] [place] [address] [address] [address] Engineering Technician Dermatology 09/19/23 Rey Tay MD [address] [place] [address] Gastroenterology 09/20/23 Rocky Zepeda DO [address] [place] [address] [phone] Physician Gastroenterology 09/20/23 Philip Dumont MD [address] [place] [address] [phone] Physician Ophthalmology 09/22/23 Meredith Carrera PA-C [address] [place] [address] [phone] Assigned Gastroenterology Provider 11/01/23 Neil Kent MD [address] [phone] Dermatology 11/02/23 [place] [address] [address] [address] Neurological Surgery 12/26/23 Audrey Waite PA-C [address] [place], [place] 897315 Physician Highway Engineering Technician Dermatology 02/28/24 Valery Veronica PA-C [address] [place] [address] Technician Dermatology 04/10/24 documented as of this encounter
--- OUTSIDE RECORDS SUMMARY | 2024-05-27 08:53 | XMS_ITS | Encounter Summary ---
Author Organization [facility] Address [address] [place] [address] Care Team Providers Care Assembler Fitter Name Role Phone Lita Oseguera Unavailable Unavailable Marija Edgar APRN ELECTRIC MOTOR CONTROL ASSEMBLER Primary Care Provider + Chanelle Mccann APRN CNM Unavailab le Kyara De La Fuente RN Unavailable [phone] Marija Edgar APRN ELECTRIC MOTOR CONTROL ASSEMBLER Unavailable [phone] Mynor Broussard MD Unavailable [phone] Keisha Dotson MD Unavailable Galo Burrell MD Unavailable Unavailable Cristina Wood Unavailable Diana Desir [facility] Unavailable Rain Galaviz PA-C Unavailable [phone] Summer Lara MD Unavailable [phone] Summer Lara MD Unavailable [phone] Summer Lara MD Unavailable [phone] Tavia Wyatt MD Unavailable Unavailable Johnny Murillo MD Unavailable Erica Farrell APRN ELECTRIC MOTOR CONTROL ASSEMBLER Unavailable Teresita Bean Walter [facility] Unavailable Tavia Wyatt MD Unavailable Unavailable Diana Desir [facility] Unavailable [phone] Rich Barrett MD Unavailable [phone] Neil Kent MD Unavailable Roney StoryM Unavailable [phone] Erica Farrell RADIUS CORNER MACHINE OPERATOR ELECTRIC MOTOR CONTROL ASSEMBLER Unavailable + Diana Desir [facility] Unavailable [phone] Jelena David OD Unavailable Galo Burrell MD Unavailable Unavailable Livan Sharif MD Unavailable + Livan Sharif MD Unavailable + Catherine Cm MD Unavailable + Valery Veronica PA-C Unavailable [phone] Catherine Cm MD Unavailable + Johnny Murillo MD Unavailable [phone] Brea Quinn RADIUS CORNER MACHINE OPERATOR ELECTRIC MOTOR CONTROL ASSEMBLER Unavailable [phone] Brea Quinn RADIUS CORNER MACHINE OPERATOR ELECTRIC MOTOR CONTROL ASSEMBLER Unavailable [phone] Jose Francisco Johnson MD Unavailable Livan Sharif MD Unavailable + Catherine Cm MD Unavailable + Sydnie Martinez RN Unavailable Unavailable Alfonso Renteria MD Unavailable [phone] Esha Grimm PA-C Primary Care Provider [phone] Cheng Todd PA-C Unavailable Radha Lomeli RADIUS CORNER MACHINE OPERATOR ELECTRIC MOTOR CONTROL ASSEMBLER Unavailable [phone] Jelena David OD Unavailable Pao Joseph RN Unavailable Unavailable Esha Grimm PA-C Unavailable [phone] Valery Veronica PA-C Unavailable [phone] Rey Tay MD Unavailable Rocky Zepeda DO Unavailable Philip Dumont MD Unavailable Meredith Carrera PA-C Unavailable [phone] Neil Kent MD Unavailable Juan Pablo Emmanuel MD Unavailable [phone] Audrey Waite PA-C Unavailable [phone] Valery Veronica PA-C Unavailable [phone] Encounter Details Date Type Department Care Team (Late st Contact Info) Description 01/06/2021 Orders Only [facility] - Surgical Specialties Service Line [facility] [place] [address] Saurabh Marcial MD [address] [facility] [address] [place] [address] Indication for care in labor [...] How often do you attend chur or christian services? More than 4 times per year [...] Answer Date Recorded PHQ-2 Score 3 09/29/2020 [facility] [...] PM CDT Legal Sex Female 4:13 AM EMULSIFICATION OPERATOR Gender Identity Female 03/02/2021 5:45 PM [...] st Contact Info) Description 05/31/2024 8:40 AM EMULSIFICATION OPERATOR Therapy Visit [facility] [address] [place] [address] Ingris Thompson, PT [facility] [address] [facility] [address] [place], [place] [address] 05/31/2024 3:30 PM EMULSIFICATION OPERATOR Office Visit [facility] [place] [address] [place] [phone] Audrey Díaz, Herminia Koo MD [address] [place] [address] 06/04/2024 3:30 PM EMULSIFICATION OPERATOR Office Visit [facility] [address] [facility] [address] [place] [phone] Jelena David, [address] [facility] [place] [address] 06/11/2024 10:30 AM EMULSIFICATION OPERATOR Appointment [facility] Respiratory Therapy [address] [place] [phone] Spec, Nurse Only Med 06/18/2024 2:50 PM EMULSIFICATION OPERATOR Therapy Visit [facility] [address] [place] [phone] Ingris Thompson, PT [facility] [address] [place] [address] [address] [place], [place] [address] 06/21/2024 2:00 PM EMULSIFICATION OPERATOR Office Visit [facility] [place] [address] [place] [address], [address] [place] [phone] [place] [address] [place] [facility] [place] [id number] Johnny Penn MD [address] [facility] [place] [id number] 06/25/2024 8:30 AM EMULSIFICATION OPERATOR Office Visit [address] [place] [address] Valery Veronica PA-C [address] [place] [address] 11/28/2024 7:45 AM CDT Virtual Visit [facility] Gastroenterology Clinic [address] 4th [place] [phone] Meredith Carrera PA-C [address] [place] [address] documented as of this encounter Results * Asymptomatic COVID-19 Virus (Coronavirus) by PCR (01/09/2021 10:44 AM CDT) COVID-19 Virus PCR to [facility] - Source Nasopharyngeal 01/09/2021 10:45 AM CDT [facility] COVID-19 Virus PCR to [facility] - Result Test received-See reflex to IDDL test SARS CoV2 (COVID-19) Virus RT-PCR 01/09/2021 6:32 PM CDT [facility] Specimen from nasopharyngeal structure (specimen) 01/09/2021 10:44 AM CDT 01/09/2021 10:45 AM CDT Saurabh Marcial MD LAB - MICRO GENERAL DONYA HERRERA Final Result [facility], [facility] [address] [place], [place] [address] [address] [place], [place] [address] [phone] documented in this encounter Visit Diagnoses Diagnosis Indication for care in labor and delivery, antepartum- Primary Unspecified indication for care or intervention related to labor and delivery, antepartum documented in this encounter Additional Health Concerns Infection Onset Date Last Indicated Resolved Time Rule Out COVID-19 05/11/2021 05/11/2021 05/13/2021 10:18 AM CDT Rule Out COVID-19 07/13/2021 07/13/2021 07/14/2021 3:04 PM EMULSIFICATION OPERATOR Rule Out COVID-19 07/18/2021 07/18/2021 07/20/2021 1:56 PM EMULSIFICATION OPERATOR COVID-19 07/18/2021 07/18/2021 08/08/2021 11:3 9 PM EMULSIFICATION OPERATOR Rule Out COVID-19 12/18/2021 12/18/2021 12/19/2021 11:34 AM CDT Rule Out COVID-19 02/24/2022 02/24/2022 02/25/2022 1:08 PM CDT Rule Out COVID-19 04/26/2022 04/26/2022 04/26/2022 6:47 AM CDT Rule Out COVID-19 05/17/2022 05/17/2022 05/17/2022 10:20 PM EMULSIFICATION OPERATOR Rule Out COVID-19 06/09/2022 06/09/2022 06/09/2022 9:35 AM EMULSIFICATION OPERATOR COVID-19 06/09/2022 06/09/2022 06/30/2022 11:4 1 PM EMULSIFICATION OPERATOR Rule Out COVID-19 11/10/2022 11/10/2022 11/11/2022 12:17 PM CDT Rule Out COVID-19 03/07/2023 03/07/2023 03/07/2023 1:20 PM CDT Rule Out COVID-19 12/26/2023 12/26/2023 12/26/2023 9:50 AM CDT Rule Out COVID-19 04/09/2024 04/09/2024 04/10/2024 6:48 PM CDT Assessment Noted Time PHQ-9 Depression Total Score: 6 09/30/19 21 3:25 PM CDT documented as of this encounter Care Teams Assembler Fitter Relationship Specialty Start Date End Date Marija Edgar APRN CNP PCP - General Nurse Practitioner 04/30/20 04/14/23 Esha Grimm PA-C [address] [place] [phone] PCP - General Family Medicine 05/04/23 Lita Oseguera Personal Advocate & Liaison (PAL) 02/28/20 03/27/23 Chanelle Mccann APRN CNM [address] [facility] [address] [place], [place] [address] Assigned OBGYN Provider 05/02/2005/09 Kyara De La Fuente, RN Specialty Stationary Steam Engineer Neurology 06/04/20 03/05/21 Marija Edgar APRN ELECTRIC MOTOR CONTROL ASSEMBLER Assigned PCP 06/08/20 04/29/23 Mynor Broussard MD [address] [facility] 500 [place] [address] Assigned Surgical Provider 06/01/20 11/28/21 Keisha Dotson MD 9 [place], [place] [address] Assigned Neuroscience Provider 06/04/20 04/01/23 Galo Burrell MD Assigned Heart and Vascular Provider 10/05/20 04/02/22 Cristina Wood Financial Resource Worker 02/09/21 02/09/21 Diana Desir, [facility] [address] [place] [address] Pharmacist Pharmacist 04/17/21 Rain Galaviz PA-C [address] [place] [address] [address] [facility] [address] Physician Security Field Supervisor Dermatology 04/28/21 Summer Lara MD [address] [place] [address] Assigned OBGYN Provider 05/10/2105/23 Summer Lara MD [address] [place] [address] Assigned OBGYN Provider 05/31/21 Summer Lara MD [address] [facility] [place] [address] Assigned OBGYN Provider 05/24/2105/30 Tavia Wyatt MD [address] [facility] [place] [address] Dermatology 07/14/21 Johnny Murillo MD [facility] [facility] [address] [place] [address] Assigned Musculoskeletal Provider 08/30/21 03/17/22 Erica Farrell APRN ELECTRIC MOTOR CONTROL ASSEMBLER [address] [facility] [address] [place] [address] Nurse Practitioner Cardiovascular Disease 09/09/21 Teresita Bean, [facility] [address] [place] [address] Pharmacist Pharmacist 09/24/21 09/29/21 Tavia Wyatt MD Assigned Surgical Provider 11/29/21 05/07/22 Diana Desir, [facility] [address] [place] [address] Assigned MTM Pharmacist 01/02/22 Rich Barrett MD [address] [id number] Physician Ophthalmology 01/21/22 Neil Kent MD [address] [place], [place] [address] Dermatology 02/24/22 Roney Story DPM [address] [facility] [address] [place], [place] [address] Assigned Musculoskeletal Provider 03/20/22 08/13/22 Erica Farrell APRN ELECTRIC MOTOR CONTROL ASSEMBLER [address] [place] [address] Assigned Heart and Vascular Provider 04/03/22 04/16/22 Diana Desir, [facility] [address] [place] [address] Assigned MTM Pharmacist 04/07/22 Jelena David OD [address] [facility] [place] [address] Assigned Surgical Provider 05/08/22 10/08/22 Galo Burrell MD Assigned Heart and Vascular Provider 04/17/22 06/11/22 Livan Sharif MD [address] [facility] [address] , [facility] [address] [place] [address] Cardiovascular Disease 05/14/22 Livan Sharif MD [address], [facility] [address] [place] [address] Assigned Heart and Vascular Provider 06/12/22 07/23/22 Catherine Cm MD [address] [facility] [address] [place] [address] Cardiovascular Disease 07/21/22 Valery Veronica, PAUcheC [address] [place] [address] Physician Security Field Supervisor Dermatology 07/21/22 Catherine Cm MD [address] [facility] [place] [address] Assigned Heart and Vascular Provider 07/24/22 11/05/22 Johnny Murillo MD [address] [place] [address] Assigned Musculoskeletal Provider 08/14/22 10/08/22 Brea Quinn APRN ELECTRIC MOTOR CONTROL ASSEMBLER [address] [place] [address] Nurse Practitioner Dermatology 09/21/22 Brea Quinn APRN ELECTRIC MOTOR CONTROL ASSEMBLER [address] [place] [address] [place] [address] Assigned Surgical Provider 10/09/22 05/01/24 [place] [address] [facility] [address] [place] [address] Assigned Musculoskeletal Provider 10/09/22 05/01/24 iLvan Sharif MD [address], [facility] [address] [place] [address] Assigned Heart and Vascular Provider 11/06/22 11/12/22 Catherine Cm MD [address] [place] [address] [place] [address] Assigned Heart and Vascular Provider 11/13/22 05/27/23 Sydnie Martinez RN Personal Advocate & Liaison (PAL) Family Medicine 03/28/23 07/31/23 Alfonso Renteria MD [address] [facility] 200 [place] [address] Assigned Neuroscience Provider 04/02/23 Cheng Todd PA-C [address] [place] [address] Assigned PCP 04/30/23 07/15/23 Radha Lomeli APRN ELECTRIC MOTOR CONTROL ASSEMBLER [address] [place] [address] Assigned Heart and Vascular Provider 05/28/23 Jelena David OD [facility] [facility] [place] [address] Ophthalmology 06/15/23 Pao Joseph, JV Personal Advocate & Liaison (PAL) Nurse 08/01/23 11/07/23 Esha Grimm PA-C [address] [place] [address] Assigned PCP 07/16/23 Valery Veronica PA-C [address] [place] [address]8725 Physician Security Field Supervisor Dermatology 09/19/23 Rey Tay MD [address] [place] [address] MD Gastroenterology 09/20/23 Rocky Zepeda DO [address] [place] [address] [phone] Physician Gastroenterology 09/20/23 Philip Dumont MD [address] [place] [address] 236925 Physician Ophthalmology 09/22/23 Meredith Carrera PA-C [address] [place] [address] Assigned Gastroenterology Provider 11/01/23 Neil Kent MD [address] [address] Dermatology 11/02/23 [place] [address] [place] [address] Neurological Surgery 12/26/23 Audrey Waite PA-C [address] [place] [address] 524815 Physician Security Field Supervisor Dermatology 02/28/24 Valery Veronica, [facility] [address] [place] [address] Physician Security Field Supervisor Dermatology 04/10/24 documented as of this encounter
--- OUTSIDE RECORDS SUMMARY | 2024-05-27 08:54 | XMS_ITS | Encounter Summary ---
Author Organization [facility] Address [address] [place] [address] Care Team Providers Care Helmet Hat Brim Cutter Name Role Phone Lita Oseguera Unavailable Unavailable Marija Edgar APRN WOODWORKING BELT SANDER Primary Care Provider + Chanelle Mccann APRN CNM Unavailab le Kyara De La Fuente RN Unavailable [phone] Marija Edgar APRN WOODWORKING BELT SANDER Unavailable [phone] Mynor Broussard MD Unavailable [phone] Keisha Dotson MD Unavailable [phone] Stacey Briones SEPARATOR INSERTER Unavailable [phone] Lesley Moody CHW Unavailable [phone] Mary Mejia Unavailable Unavailable Lita Oseguera Unavailable Unavailable Galo Burrell MD Unavailable Unavailable Cristina Wood Unavailable Lesley Moody CHW Unavailable Meredith Bedoya Unavailable Unavailable Cristina Wood Unavailable Diana eDsir [facility] Unavailable Rain Galaviz PA-C Unavailable Summer Lara MD Unavailable [phone] Summer Lara MD Unavailable [phone] Summer Lara MD Unavailable + [phone] Tavia Wyatt MD Unavailable Unavailable SemJohnny mckeon MD Unavailable +1- Erica Farrell APRN WOODWORKING BELT SANDER Unavailable + Vikas Teresitafazal Watson H Unavailable Tavia Wyatt MD Unavailable Unavailable Diana Desir [facility] Unavailable [phone] Rich Barrett MD Unavailable [phone] Neil Kent MD Unavailable Roney Story DPM Unavailable [phone] Erica Farrell VALIDATION ENGINEER WOODWORKING BELT SANDER Unavailable + Diana Desir [facility] Unavailable [phone] Tommy Davidmao Templetone OD Unavailable [phone] Galo Burrell MD Unavailable Unavailable Livan Sharif MD Unavailable + Livan Sharif MD Unavailable + Catherine Cm MD Unavailable + Valery Veronica PA-C Unavailable [phone] Catherine Cm MD Unavailable + Johnny Murillo MD Unavailable +1- Brea Quinn APRN WOODWORKING BELT SANDER Unavailable [phone] Brea Quinn VALIDATION ENGINEER WOODWORKING BELT SANDER Unavailable [phone] Jose Francisco Johnson MD Unavailable Livan Sharif MD Unavailable + Catherine Cm MD Unavailable + Sydnie Martinez RN Unavailable Unavailable Alfonso Renteria MD Unavailable [phone] Esha Grimm PA-C Primary Care Provider Cheng Todd PA-C Unavailable Radha Lomeli APRN WOODWORKING BELT SANDER Unavailable FrankieJelena SONJA Unavailable Pao Joseph RN Unavailable Unavailable Esha Grimm PA-C Unavailable [phone] Valery Veronica PA-C Unavailable Rey Tay MD Unavailable Rocky Zepeda DO Unavailable Philip Dumont MD Unavailable Meredith Carrera PA-C Unavailable Neil Kent MD Unavailable Juan Pablo Emmanuel MD Unavailable [phone] Audrey Waite PA-C Unavailable JeremíasValery damon PA-C Unavailable [phone] Reason for Visit * Reason Onset Date Comments MyChart Communication 09/02/2020 Encounter Details Date Type Department Care Team (Latest Contact Info) Description 09/02/2020 MyC Medical Advice [address] [phone] Marija Edgar APRN WOODWORKING BELT SANDER [address] [place] [phone] MyChart Communication Social History Tobacco Use [...] you attend [facility] or buddhism services? More than 4 times [...] Answer Date Recorded PHQ-2 Score 0 08/12/2020 [facility] [...] PM CDT Legal Sex Female 4:13 AM WHEEL CUTTER Gender Identity Female 03/02/2021 5:45 PM CDT Sexual Orientation Straight 02/28/2020 12 :51 AM CDT COVID-19 Exposure Response Date Recorded In the last month, have you been in contact with someone who was confirmed or suspected to have Coronavirus / COVID-19? No / Unsure 09/05/2020 2:50 PM WHEEL CUTTER documented as of this encounter Miscellaneous Notes * Telephone Encounter - Ever Cardozo MA - 09/03/2020 10:34 AM CST Responded to patient as below. Ever Cardozo CMA ([facility]) L CUTTER documented in this encounter Plan of Treatment Upcoming Encounters Date Type Department Care Team (Late st Contact Info) Description 05/31/2024 8:40 AM WHEEL CUTTER Therapy Visit [address] [place] [phone] Ingris Thompson, PT [address] [address] 05/31/2024 3:30 PM WHEEL CUTTER Office Visit [address] [phone] Audrey Díaz, Herminia Koo MD [address] [place] [address] 06/04/2024 3:30 PM WHEEL CUTTER Office Visit [address] [place] [phone] Jelena David, [address] [place] [address] 06/11/2024 10:30 AM WHEEL CUTTER Appointment [facility] Respiratory Therapy [address] [place] [phone] Spec, Nurse Only Med 06/18/2024 2:50 PM WHEEL CUTTER Therapy Visit [address] [place] [phone] Ingris Thompson, PT [address] [place] [address] 06/21/2024 2:00 PM WHEEL CUTTER Office Visit [facility] Neurology Clinics [facility] [address] [facility], [address] [place] [phone] [place] [address] [place], [place] [address] Johnny Penn MD [address] [place] [id number] 06/25/2024 8:30 AM WHEEL CUTTER Office Visit [address] [phone] Valery Veronica, ROVERTO [address] [place] [address] 11/28/2024 7:45 AM CDT Virtual Visit [facility] Gastroenterology [address] [phone] Meredith Carrera PA-C [address] [place] [address] documented as of this encounter Visit Diagnoses Not on filedocumented in this encounter Additional Health Concerns Infection Onset Date Last Indicated Resolved Time Rule Out COVID-19 09/24/2020 09/24/2020 09/24/2020 9:24 AM CDT Rule Out COVID-19 11/05/2020 11/05/2020 11/06/2020 1:09 PM CDT Rule Out COVID-19 05/11/2021 05/11/2021 05/13/2021 10:18 AM CDT Rule Out COVID-19 07/13/2021 07/13/2021 07/14/2021 3:04 PM WHEEL CUTTER Rule Out COVID-19 07/18/2021 07/18/2021 07/20/2021 1:56 PM WHEEL CUTTER COVID-19 07/18/2021 07/18/2021 08/08/2021 11:3 9 PM WHEEL CUTTER Rule Out COVID-19 12/18/2021 12/18/2021 12/19/2021 11:34 AM CDT Rule Out COVID-19 02/24/2022 02/24/2022 02/25/2022 1:08 PM CDT Rule Out COVID-19 04/26/2022 04/26/2022 04/26/2022 6:47 AM CDT Rule Out COVID-19 05/17/2022 05/17/2022 05/17/2022 10:20 PM WHEEL CUTTER Rule Out COVID-19 06/09/2022 06/09/2022 06/09/2022 9:35 AM WHEEL CUTTER COVID-19 06/09/2022 06/09/2022 06/30/2022 11:4 1 PM WHEEL CUTTER Rule Out COVID-19 11/10/2022 11/10/2022 11/11/2022 12:17 PM CDT Rule Out COVID-19 03/07/2023 03/07/2023 03/07/2023 1:20 PM CDT Rule Out COVID-19 12/26/2023 12/26/2023 12/26/2023 9:50 AM CDT Rule Out COVID-19 04/09/2024 04/09/2024 04/10/2024 6:48 PM CDT Assessment Noted Time PHQ-9 Depression Total Score: 9 06/25/20 20 7:04 AM WHEEL CUTTER documented as of this encounter Care Teams Helmet Hat Brim Cutter Relationship Specialty Start Date End Date Marija Edgar APRN CNP PCP - General Nurse Practitioner 04/30/20 04/14/23 Esha Grimm PA-C [address] [place] [phone] PCP - General Family Medicine 05/04/23 Lita Oseguera Personal Advocate & Liaison (PAL) 02/28/20 03/27/23 Chanelle Mccann APRN CNM [address] [facility] [address] [place] [address] Assigned OBGYN Provider 05/02/2005/09 Kyara De La Fuente, RN Specialty Call Person Neurology 06/04/20 03/05/21 Marija Edgar APRN WOODWORKING BELT SANDER Assigned PCP 06/08/20 04/29/23 Mynor Broussard MD [address] [facility] 500 [place], [place] [address] Assigned Surgical Provider 06/01/20 11/28/21 Keisha Dotson MD 9 [place] [address] Assigned Neuroscience Provider 06/04/20 04/01/23 Stcaey Briones, [facility] Lead Call Person Primary Care - CC 08/11/2012/30 Lesley Moody, [facility] Community Health Worker 08/11/2010/01 Mary [...] 02/09/21 Diana Desir, [facility] [address] [place] [address] Pharmacist Pharmacist 04/17/21 Rain Galaviz PA-C [address] [place] [address] [place] [address] Physician Product Mgr Dermatology 04/28/21 Summer Lara MD [address] [place] [address] Assigned OBGYN Provider 05/10/2105/23 Summer Lara MD [address] [place] [address] Assigned OBGYN Provider 05/31/21 2 Summer Lara MD [address] [place] [address] Assigned OBGYN Provider 05/24/2105/30 Tavia Wyatt MD [address] [place] [address] Dermatology 07/14/21 Johnny Murillo MD [address] [facility] [address] [place] [address] Assigned Musculoskeletal Provider 08/30/21 03/17/22 Erica Farrell APRN WOODWORKING BELT SANDER [address] [facility] [address] [place] [address] Nurse Practitioner Cardiovascular Disease 09/09/21 Teresita Bean [facility] [address] [facility] [address] [place] [id number] Pharmacist Pharmacist 09/24/21 09/29/21 Tavia Wyatt MD Assigned Surgical Provider 11/29/21 05/07/22 Diana Desir, [facility] [address] [place] [address] Assigned MTM Pharmacist 01/02/22 Rich Barrett MD [address] [phone] Physician Ophthalmology 01/21/22 Neil Kent MD 500 [place] [address] Dermatology 02/24/22 Roney Story DPM [address] [facility] [address] [place] [address] Assigned Musculoskeletal Provider 03/20/22 08/13/22 Erica Farrell APRN WOODWORKING BELT SANDER [address] [place] [address] Assigned Heart and Vascular Provider 04/03/22 04/16/22 Diana Desir, [facility] [address] [place] [address] Assigned MTM Pharmacist 04/07/22 Frankie Jelenamao Garcia OD [address] [facility] [place] [address] Assigned Surgical Provider 05/08/22 10/08/22 Galo Burrell MD Assigned Heart and Vascular Provider 04/17/22 06/11/22 Livan Sharif MD [address] [place] [address] Cardiovascular Disease 05/14/22 Livan Sharif MD [address] [place] [address] Assigned Heart and Vascular Provider 06/12/22 07/23/22 Catherine Cm MD [address] [place] [phone] Cardiovascular Disease 07/21/22 Valery Veronica, PA-C [address] [place], [place] [address] Physician Product Mgr Dermatology 07/21/22 Catherine Cm MD [address] [place] [address] Assigned Heart and Vascular Provider 07/24/22 11/05/22 Johnny Murillo MD [facility] [address] [address] Assigned Musculoskeletal Provider 08/14/22 10/08/22 Brea Quinn APRN WOODWORKING BELT SANDER [address] [place] [address] Nurse Practitioner Dermatology 09/21/22 Brea Quinn APRN WOODWORKING BELT SANDER [address] [place] [address] Assigned Surgical Provider 10/09/22 05/01/24 [place] [address] [facility] [address] [place] [address] Assigned Musculoskeletal Provider 10/09/22 05/01/24 Livan Sharif MD [address], [facility] [address] [place] [address] Assigned Heart and Vascular Provider 11/06/22 11/12/22 Catherine Cm MD [address] [facility] [address] [place] [address] Assigned Heart and Vascular Provider 11/13/22 05/27/23 Sydnie Martinez RN Personal Advocate & Liaison (PAL) Family Medicine 03/28/23 07/31/23 Alfonso Renteria MD [address] [facility] [address] [place] [address] Assigned Neuroscience Provider 04/02/23 Cheng Todd PA-C [address] [place] [address] Assigned PCP 04/30/23 07/15/23 Radha Lomeli APRN WOODWORKING BELT SANDER [address] [place] [address] Assigned Heart and Vascular Provider 05/28/23 Jelena David OD [address] [facility] [address] MD Ophthalmology 06/15/23 Pao Joseph, VJ Personal Advocate & Liaison (PAL) Nurse 08/01/23 11/07/23 Esha Grimm PA-C [address] [place] [phone] Assigned PCP 07/16/23 Valery Veronica PA-C [address] [place] [address] [id number] Physician Product Mgr Dermatology 09/19/23 Rey Tay MD [address] [place] [address] MD Gastroenterology 09/20/23 Rocky Zepeda DO [address] [place] [address] [id number] Physician Gastroenterology 09/20/23 Philip Dumont MD [address] [place] [address] [phone] Physician Ophthalmology 09/22/23 Meredith Carrera PA-C [address] [place] [address] 628395 Assigned Gastroenterology Provider 11/01/23 Neil Kent MD [address] [address] Dermatology 11/02/23 [place] [address] [place] [address] [address] Neurological Surgery 12/26/23 Audrey Waite PA-C 500 [place], [place] [address] Physician Product Mgr Dermatology 02/28/24 Valery Veronica PA-C 647488 [place], [place] [address] Physician Product Mgr Dermatology 04/10/24 documented as of this encounter
--- OUTSIDE RECORDS SUMMARY | 2024-05-27 08:54 | XMS_ITS | Encounter Summary ---
Author Organization [facility] Address [address] [place] [address] Care Team Providers Care Travel Rn Name Role Phone Lita Oseguera Unavailable Unavailable Marija Edgar APRN SENIOR PHARMACY TECHNICIAN Primary Care Provider + Chanelle Mccann APRN CNM Unavailab le Kyara De La Fuente RN Unavailable [phone] Marija Edgar APRN SENIOR PHARMACY TECHNICIAN Unavailable [phone] Mynor Broussard MD Unavailable [phone] Keisha Dotson MD Unavailable [phone] Stacey Briones DOCUMENTATION ENGINEER Unavailable Lesley Moody CHW Unavailable [phone] Mary Mejia Unavailable Unavailable Lita Oseguera Unavailable Unavailable Galo Burrell MD Unavailable Unavailable Cristina Wood Unavailable Lesley Moody CHW Unavailable Meredith Bedoya Unavailable Unavailable Cristina Wood Unavailable Diana Desir [facility] Unavailable [phone] Rain Galaviz PA-C Unavailable Summer Lara MD Unavailable [phone] Summer Lara MD Unavailable [phone] Summer Lara MD Unavailable + [phone] Tavia Wyatt MD Unavailable Unavailable SemJohnny mckeon MD Unavailable +1- Erica Farrell APRN SENIOR PHARMACY TECHNICIAN Unavailable + Vikas Teresitafazal Watson H Unavailable Tavia Wyatt MD Unavailable Unavailable Diana Desir [facility] Unavailable [phone] Rich Barrett MD Unavailable [phone] Neil Kent MD Unavailable Roney Story DPM Unavailable [phone] Erica Farrell COMMANDING OFFICER HOMICIDE SQUAD SENIOR PHARMACY TECHNICIAN Unavailable + Diana Desir [facility] Unavailable [phone] Tommy Davidmao Templetone OD Unavailable [phone] Galo Burrell MD Unavailable Unavailable Livan Sharif MD Unavailable + Livan Sharif MD Unavailable + Catherine Cm MD Unavailable + Valery Veronica PA-C Unavailable [phone] Catherine Cm MD Unavailable + Johnny Murillo MD Unavailable +1- Brea Quinn APRN SENIOR PHARMACY TECHNICIAN Unavailable [phone] Brea Quinn COMMANDING OFFICER [employer] SENIOR PHARMACY TECHNICIAN Unavailable [phone] Jose Francisco Johnson MD Unavailable Livan Sharif MD Unavailable + Catherine Cm MD Unavailable + Sydnie Martinez RN Unavailable Unavailable Alfonso Renteria MD Unavailable [phone] Esha Grimm PA-C Primary Care Provider Cheng Todd PA-C Unavailable LomeliRadha ARLENE SENIOR PHARMACY TECHNICIAN Unavailable FrankieJelena SONJA Unavailable Pao Joseph RN Unavailable Unavailable Esha Grimm PA-C Unavailable [phone] Valery Veronica PA-C Unavailable Rey Tay MD Unavailable Rocky Zepeda DO Unavailable Philpi Dumont MD Unavailable Meredith Carrera PA-C Unavailable [phone] Neil Kent MD Unavailable Juan Pablo Emmanuel MD Unavailable Audrey Waite PA-C Unavailable JeremíasValery damon PA-C Unavailable Reason for Visit * Reason Onset Date Comments Patient/info Update 08/31/2020 appointment request Encounter Details Date Type Department Care Team (Late st Contact Info) Description 08/31/2020 MyC Medical Advice [address] [phone] Marija Edgar APRN SENIOR PHARMACY TECHNICIAN [address] [place] [phone] Patient/info Update (appointment request ) Social [...] Answer Date Recorded PHQ-2 Score 0 08/12/2020 [facility] [...] PM CDT Legal Sex Female 4:13 AM [employer] Gender Identity Female 03/02/2021 5:45 PM CDT Sexual Orientation Straight 02/28/2020 12 :51 AM CDT COVID-19 Exposure Response Date Recorded In the last month, have you been in contact with someone who was confirmed or suspected to have Coronavirus / COVID-19? No / Unsure 09/03/2020 12:11 PM [employer] documented as of this encounter Miscellaneous Notes * Telephone Encounter - Maryjane Mccallum RN - 09/01/2020 7:21 AM [employer] Patient sent message requesting office visit with [...] Office Visit with Marija Edgar APRN CNP [facility] ([facility] ) [address] [place] [phone] Maryjane Mccallum Registered Nurse [facility] [employer]NER documented in this encounter Plan of Treatment Upcoming Encounters Date Type Department Care Team (Late st Contact Info) Description 05/31/2024 8:40 AM [employer]NER Therapy Visit [facility] [place] [address] [place] [address] [address] [place] [phone] Ingris Thompson, PT [facility] [address] [place] [address] 05/31/2024 3:30 PM [employer] Office Visit [address] [phone] Audrey Díaz, Herminia Koo MD [address] [place] [address] 06/04/2024 3:30 PM [employer] Office Visit [address] [place] [phone] [place], [place] [address] [facility] [place] [address] 06/11/2024 10:30 AM [employer]NER Appointment [facility] Respiratory Therapy [address] [place] [phone] Spec, Nurse Only Med 06/18/2024 2:50 PM [employer]NER Therapy Visit [facility] [place] [id number] [place] [address] [address] [place] [phone] Ingris Thompson, PT [facility] [address] [facility] [address] [place], [place] [address] 06/21/2024 2:00 PM [employer]NER Office Visit [facility] [address] [place] [address], [address] [place] [phone] [place] [address] [place], [place] [address] Johnny Penn MD [address] [place] [address] 06/25/2024 8:30 AM [employer] BO[employer]NER Office Visit [address] [phone] Valery Veronica PA-C [address] [place] [phone] 11/28/2024 7:45 AM CDT Virtual Visit [facility] [address] 4[address] [place] [phone] Meredith Carrera PA-C [address] [place] [address] [phone] (work) documented as of this encounter Visit Diagnoses Not on filedocumented in this encounter Additional Health Concerns Infection Onset Date Last Indicated Resolved Time Rule Out COVID-19 09/24/2020 09/24/2020 09/24/2020 9:24 AM CDT Rule Out COVID-19 11/05/2020 11/05/2020 11/06/2020 1:09 PM CDT Rule Out COVID-19 05/11/2021 05/11/2021 05/13/2021 10:18 AM CDT Rule Out COVID-19 07/13/2021 07/13/2021 07/14/2021 3:04 PM [employer]NER Rule Out COVID-19 07/18/2021 07/18/2021 07/20/2021 1:56 PM [employer]ICK BO[employer] RUNNER COVID-19 07/18/2021 07/18/2021 08/08/2021 11:3 9 PM [employer]ICK [employer]NER Rule Out COVID-19 12/18/2021 12/18/2021 12/19/2021 11:34 AM CDT Rule Out COVID-19 02/24/2022 02/24/2022 02/25/2022 1:08 PM CDT Rule Out COVID-19 04/26/2022 04/26/2022 04/26/2022 6:47 AM CDT Rule Out COVID-19 05/17/2022 05/17/2022 05/17/2022 10:20 PM [employer] Rule Out COVID-19 06/09/2022 06/09/2022 06/09/2022 9:35 AM [employer]NER COVID-19 06/09/2022 06/09/2022 06/30/2022 11:4 1 PM [employer]NER Rule Out COVID-19 11/10/2022 11/10/2022 11/11/2022 12:17 PM CDT Rule Out COVID-19 03/07/2023 03/07/2023 03/07/2023 1:20 PM CDT Rule Out COVID-19 12/26/2023 12/26/2023 12/26/2023 9:50 AM CDT Rule Out COVID-19 04/09/2024 04/09/2024 04/10/2024 6:48 PM CDT Assessment Noted Time PHQ-9 Depression Total Score: 9 06/25/20 7:04 AM [employer]NER documented as of this encounter Care Teams Travel Rn Relationship Specialty Start Date End Date Marija Edgar APRN SENIOR PHARMACY TECHNICIAN PCP - General Nurse Practitioner 04/30/20 04/14/23 Esha Grimm PA-C [address] [place] [phone] PCP - General Family Medicine 05/04/23 Lita Oseguera Personal Advocate & Liaison (PAL) 02/28/20 03/27/23 [place] [address] [facility] [address] [place] [address] Assigned OBGYN Provider 05/02/2005/09 Kyara De La Fuente, RN Specialty Integration Architect Neurology 06/04/20 03/05/21 Marija Edgar APRN SENIOR PHARMACY TECHNICIAN Assigned PCP 06/08/20 04/29/23 Mynor Broussard MD [address] [facility] 500 [place], [place] [phone] Assigned Surgical Provider 06/01/20 11/28/21 Keisha Dotson MD [address] [place] [address] Assigned Neuroscience Provider 06/04/20 04/01/23 Stacey Briones, DOCUMENTATION ENGINEER Lead Integration Architect Primary Care - CC 08/11/2012/30 Lesley Moody, [facility] Community Health Worker 08/11/2010/01 Nikiatimothy Mary Financial Resource Worker 09/02/20 10/06/20 Lita Oseguera Personal Advocate & Liaison (PAL) Family Medicine 09/10/20 09/21/20 Galo Burrell MD Assigned Heart and Vascular Provider 10/05/20 04/02/22 Cristina Wood Financial Resource Worker 10/07/20 10/14/20 Lesley Moody, [facility] Community Health Worker 10/23/2012/30 Meredith Bedoya Financial Resource Worker 10/23/20 11/23/20 Cristina Wood Financial Resource Worker 02/09/21 02/09/21 Diana Desir, [facility] [address] [place], [place] [address] Pharmacist Pharmacist 04/17/21 Rain Galaviz PA-C [address] [place] [address] [address] [facility] [place] [phone] Physician Puller Over Dermatology 04/28/21 Summer Lara MD [address] [place] [address] [phone] Assigned OBGYN Provider 05/10/2105/23 Summer Lara MD [address] [place] [address] 406004 Assigned OBGYN Provider 05/31/21 2 Summer Lara MD [address] [place] [address] Assigned OBGYN Provider 05/24/2105/30 Tavia Wyatt MD [address] [place] [address] Dermatology 07/14/21 Johnny Murillo MD [address] [place] [address] Assigned Musculoskeletal Provider 08/30/21 03/17/22 Erica Farrell APRN SENIOR PHARMACY TECHNICIAN [address] [facility] [address] [place] [address] Nurse Practitioner Cardiovascular Disease 09/09/21 [facility] [address] [place] [address] Pharmacist Pharmacist 09/24/21 09/29/21 Tavia Wyatt MD Assigned Surgical Provider 11/29/21 05/07/22 [facility] [address] [place] [address] Assigned MTM Pharmacist 01/02/22 Rich Barrett MD [address] [phone] Physician Ophthalmology 01/21/22 Neil Kent MD [address] [place] [address] [phone] Dermatology 02/24/22 Roney Story DPM [address] [facility] [address] [place] [address] Assigned Musculoskeletal Provider 03/20/22 08/13/22 Erica Farrell APRN SENIOR PHARMACY TECHNICIAN [address] [place] [address] Assigned Heart and Vascular Provider 04/03/22 04/16/22 Diana Desir, [facility] [address] [place], [place] [address] Assigned MTM Pharmacist 04/07/22 Jelena David OD [address] [facility] [place] [address] Assigned Surgical Provider 05/08/22 10/08/22 Galo Burrell MD Assigned Heart and Vascular Provider 04/17/22 06/11/22 Livan Sharif MD [address] [place] [address] Cardiovascular Disease 05/14/22 Livan Sharif MD [address] [place] [address] Assigned Heart and Vascular Provider 06/12/22 07/23/22 Catherine Cm MD [address] [place] [address] Cardiovascular Disease 07/21/22 Valery Veronica, PAUcheC [address] [place] [address] Physician Puller Over Dermatology 07/21/22 Catherine Cm MD [address] [place] [address] [place] [address] Assigned Heart and Vascular Provider 07/24/22 11/05/22 Johnny Murillo MD [facility] [address] [address] Assigned Musculoskeletal Provider 08/14/22 10/08/22 Brea Quinn APRN SENIOR PHARMACY TECHNICIAN [address] [place] [address] 709605 Nurse Practitioner Dermatology 09/21/22 Brea Quinn APRN SENIOR PHARMACY TECHNICIAN [address] [facility] [place] [address] Assigned Surgical Provider 10/09/22 05/01/24 [place] [address] [address] Assigned Musculoskeletal Provider 10/09/22 05/01/24 Livan Sharif MD [address] [facility] [address] Assigned Heart and Vascular Provider 11/06/22 11/12/22 Catherine Cm MD [address] [place] [address] [address] [place] [id number] Assigned Heart and Vascular Provider 11/13/22 05/27/23 Sydnie Martinez, RN Personal Advocate & Liaison (PAL) Family Medicine 03/28/23 07/31/23 Alfonso Renteria MD [address] [facility] [address] [place] [address] Assigned Neuroscience Provider 04/02/23 Cheng Todd PA-C [address] [place] [address] [phone] Assigned PCP 04/30/23 07/15/23 Radha Lomeli APRN SENIOR PHARMACY TECHNICIAN [address] [facility] [address] [place], [place] [address] Assigned Heart and Vascular Provider 05/28/23 Jelena David OD [address] [facility] [place] [address] Ophthalmology 06/15/23 Pao Joseph, VJ Personal Advocate & Liaison (PAL) Nurse 08/01/23 11/07/23 Esha Grimm PA-C [address] [place] [phone] Assigned PCP 07/16/23 Valery Veronica PA-C [address] [place] [address]055 Physician Puller Over Dermatology 09/19/23 Rey Tay MD [address] [place], [place] [address] Gastroenterology 09/20/23 Rocky Zepeda DO 500 [place] [address] Physician Gastroenterology 09/20/23 Philip [place]ont MD 516 [place] [address] Physician Ophthalmology 09/22/23 Meredith [place] PA-C 909 [place] [address] Assigned Gastroenterology Provider 11/01/23 Neil Kent MD [address] [address] Dermatology 11/02/23 [place] [address] [address] Neurological Surgery 12/26/23 Audrey Waite PA-C 500 [place] [address] Physician Puller Over Dermatology 02/28/24 Valery Veronica PA-C 919160 [place] [address] Physician Puller Over Dermatology 04/10/24 documented as of this encounter
--- OUTSIDE RECORDS SUMMARY | 2024-05-27 08:54 | XMS_ITS | Encounter Summary ---
Author Organization [facility] Address [address] [place] [address] Care Team Providers Care Report Writer Name Role Phone Lita Oseguera Unavailable Unavailable Marija Edgar APRN COMMUNICATIONS DIRECTOR Primary Care Provider + Chanelle Mccann INTERNATIONAL TRAVEL CONSULTANT CNM Unavailab le Kyara De La Fuente RN Unavailable [phone] Marija Edgar APRN COMMUNICATIONS DIRECTOR Unavailable [phone] Mynor Broussard MD Unavailable [phone] Keisha Dotson MD Unavailable Mary Mejia Unavailable Unavailable Stacey Briones CASSEROLE PREPARER Unavailable [phone] Lesley Moody CHW Unavailable Mary Mejia Unavailable Unavailable Lita Oseguera Unavailable Unavailable Galo Burrell MD Unavailable Unavailable Cristina Wood Unavailable Lesley Moody CHW Unavailable Meredith Bedoya Unavailable Unavailable Cristina Wood Unavailable Diana Desir [facility] Unavailable [phone] Ruhland, Rain Lena PA-C Unavailable Summer Lara MD Unavailable [phone] Summer Lara MD Unavailable +[phone] Summer Lara MD Unavailable +[phone] Tavia Wyatt MD Unavailable Unavailable SemJohnny mckeon MD Unavailable [phone] Erica Farrell APRN COMMUNICATIONS DIRECTOR Unavailable + Vikas Teresita Watson H Unavailable Tavia Wyatt MD Unavailable Unavailable Diana Desir [facility] Unavailable [phone] Rich Barrett MD Unavailable [phone] Neil Kent MD Unavailable Roney Story DPM Unavailable [phone] Erica Farrell APRN COMMUNICATIONS DIRECTOR Unavailable + Diana Desir [facility] Unavailable [phone] Jelena David Radha OD Unavailable Galo Burrell MD Unavailable Unavailable Livan Sharif MD Unavailable + Livan Sharif MD Unavailable + Catherine Cm MD Unavailable + Valery Veronica PA-C Unavailable [phone] Catherine Cm MD Unavailable + Johnny Murillo MD Unavailable +[phone] Brea Quinn APRN COMMUNICATIONS DIRECTOR Unavailable [phone] Brea Quinn INTERNATIONAL TRAVEL CONSULTANT COMMUNICATIONS DIRECTOR Unavailable [phone] Jose Francisco Johnson MD Unavailable Livan Sharif MD Unavailable + Catherine Cm MD Unavailable + Sydnie Martinez RN Unavailable Unavailable Alfonso Renteria MD Unavailable [phone] Esha Grimm PA-C Primary Care Provider Cheng Todd PA-C Unavailable Radha Lomeli APRN COMMUNICATIONS DIRECTOR Unavailable Frankie Jelena Templetone OD Unavailable [phone] Pao Joseph RN Unavailable Unavailable Esha Grimm PA-C Unavailable [phone] Valery Veronica PA-C Unavailable [phone] Rey Tay MD Unavailable Rocky Zepeda DO Unavailable Philip Dumont MD Unavailable Meredith Carrera PA-C Unavailable Neil Kent MD Unavailable Juan Pablo Emmanuel MD Unavailable Audrey Waite PA-C Unavailable [phone] JeremíasValery damon PA-C Unavailable Encounter Details Date Type Department Care Team (Late st Contact Info) Description 08/07/[address] [facility] Care Coordination [address] [place] [phone] Lesley Moody, [facility] Social History Tobacco Use Types Packs/Day Years [...] do you attend chur or worship services? More than 4 times [...] Answer Date Recorded PHQ-2 Score 3 06/24/2020 [facility] of Occupat ional Health - Occupational Stress [...] PM CDT Legal Sex Female 4:13 AM DISPATCH MANAGER Gender Identity Female 03/02/2021 5:45 PM CDT Sexual Orientation Straight 02/28/2020 12 :51 AM CDT COVID-19 Exposure Response Date Recorded In the last month, have you been in contact with someone who was confirmed or suspected to have Coronavirus / COVID-19? No / Unsure 08/06/2020 2:03 PM DISPATCH MANAGER documented as of this encounter Plan of Treatment Upcoming Encounters Date Type Department Care Team (Late st Contact Info) Description 05/31/2024 8:40 AM DISPATCH MANAGER Therapy Visit [facility] [id number] [place] [address] [address] [place] [phone] Ingris Thompson, PT [address] [address] 05/31/2024 3:30 PM DISPATCH MANAGER Office Visit [place] [id number] [place] [phone] Audrey Díaz, Herminia Koo MD [facility] [place], [place] [phone] 06/04/2024 3:30 PM DISPATCH MANAGER Office Visit [facility] [address] [facility] [address] [place] [phone] Jelena David, [address] [place] [address] [place] [address] 06/11/2024 10:30 AM DISPATCH MANAGER Appointment [facility] [address] [place] [phone] Spec, Nurse Only Med 06/18/2024 2:50 PM DISPATCH MANAGER Therapy Visit [address] [place] [phone] Ingris Thompson, PT [address] [address] 06/21/2024 2:00 PM DISPATCH MANAGER Office Visit [facility] [address], [address] [place] [phone] [place] [address] [place] [phone] Johnny Penn MD [address] [place] [address] 06/25/2024 8:30 AM DISPATCH MANAGER Office Visit [address] [phone] Valery Veronica PA-C [address] [place] [address] 248615 11/28/2024 7:45 AM CDT Virtual Visit [facility] [address] [phone] Meredith Carrera PA-C [address] [place] [address] 985105 documented as of this encounter Visit Diagnoses Not on filedocumented in this encounter Additional Health Concerns Infection Onset Date Last Indicated Resolved Time Rule Out COVID-19 08/30/2020 08/30/2020 08/30/2020 5:05 PM DISPATCH MANAGER Rule Out COVID-19 09/24/2020 09/24/2020 09/24/2020 9:24 AM CDT Rule Out COVID-19 11/05/2020 11/05/2020 11/06/2020 1:09 PM CDT Rule Out COVID-19 05/11/2021 05/11/2021 05/13/2021 10:18 AM CDT Rule Out COVID-19 07/13/2021 07/13/2021 07/14/2021 3:04 PM DISPATCH MANAGER Rule Out COVID-19 07/18/2021 07/18/2021 07/20/2021 1:56 PM DISPATCH MANAGER COVID-19 07/18/2021 07/18/2021 08/08/2021 11:3 9 PM DISPATCH MANAGER Rule Out COVID-19 12/18/2021 12/18/2021 12/19/2021 11:34 AM CDT Rule Out COVID-19 02/24/2022 02/24/2022 02/25/2022 1:08 PM CDT Rule Out COVID-19 04/26/2022 04/26/2022 04/26/2022 6:47 AM CDT Rule Out COVID-19 05/17/2022 05/17/2022 05/17/2022 10:20 PM DISPATCH MANAGER Rule Out COVID-19 06/09/2022 06/09/2022 06/09/2022 9:35 AM DISPATCH MANAGER COVID-19 06/09/2022 06/09/2022 06/30/2022 11:4 1 PM DISPATCH MANAGER Rule Out COVID-19 11/10/2022 11/10/2022 11/11/2022 12:17 PM CDT Rule Out COVID-19 03/07/2023 03/07/2023 03/07/2023 1:20 PM CDT Rule Out COVID-19 12/26/2023 12/26/2023 12/26/2023 9:50 AM CDT Rule Out COVID-19 04/09/2024 04/09/2024 04/10/2024 6:48 PM CDT Assessment Noted Time PHQ-9 Depression Total Score: 9 06/25/20 20 7:04 AM DISPATCH MANAGER documented as of this encounter Care Teams Report Writer Relationship Specialty Start Date End Date Marija Edgar APRN COMMUNICATIONS DIRECTOR PCP - General Nurse Practitioner 04/30/20 04/14/23 Esha Grimm PA-C [address] [place] [phone] PCP - General Family Medicine 05/04/23 Lita Oseguera Personal Advocate & Liaison (PAL) 02/28/20 03/27/23 Chanelle Mccann APRN [place] [address] [address] Assigned OBGYN Provider 05/02/2005/09 Kyara De La Fuente, RN Specialty Medical Library Assistant Neurology 06/04/20 03/05/21 Marija Edgar APRN CNP Assigned PCP 06/08/20 04/29/23 Mynor Broussard MD [address] [address] Assigned Surgical Provider 06/01/20 11/28/21 Keisha Dotson MD [address] [place], [place] [phone] Assigned Neuroscience Provider 06/04/20 04/01/23 Mary Mejia Financial Resource Worker 08/07/20 08/21/20 Stacey Briones, [facility] Lead Medical Library Assistant Primary Care - CC 08/11/2012/30 Lesley Moody, [facility] Community Health Worker 08/11/2010/01 Mary [...] Financial Resource Worker 02/09/21 02/09/21 Thang Diana T, [facility] [address] [place] [address] Pharmacist Pharmacist 04/17/21 Rain Galaviz PA-C [address] [place] [address] [place] [address] Physician Methods Analyst Dermatology 04/28/21 Summer Lara MD [address] [place] [address] 854284 Assigned OBGYN Provider 05/10/2105/23 Summer Lara MD [address] [place] [address] Assigned OBGYN Provider 05/31/21 Summer Lara MD [address] [place] [address] 673024 Assigned OBGYN Provider 05/24/2105/30 Tavia Wyatt MD [address] [place] [address] Dermatology 07/14/21 Johnny Murillo MD [address] [place] [address] Assigned Musculoskeletal Provider 08/30/21 03/17/22 Erica Farrell APRN COMMUNICATIONS DIRECTOR [address] [facility] [address] [place] [address] Nurse Practitioner Cardiovascular Disease 09/09/21 Teresita Bean [facility] [address] [place] [phone] Pharmacist Pharmacist 09/24/21 09/29/21 Tavia Wyatt MD Assigned Surgical Provider 11/29/21 05/07/22 [facility] [address] [place] [address] Assigned MTM Pharmacist 01/02/22 Rich Barrett MD [address] [place] [address] Physician Ophthalmology 01/21/22 Neil Kent MD [address] [place] [address] Dermatology 02/24/22 Roney Story DPM [address] [address] Assigned Musculoskeletal Provider 03/20/22 08/13/22 Erica Farrell APRN COMMUNICATIONS DIRECTOR [facility] [place] [address] Assigned Heart and Vascular Provider 04/03/22 04/16/22 Diana Desir, [facility] [address] [place] [address] Assigned MTM Pharmacist 04/07/22 Jelena David OD [address] [place] [address] [place] [address] Assigned Surgical Provider 05/08/22 10/08/22 Galo Burrell MD Assigned Heart and Vascular Provider 04/17/22 06/11/22 Livan Sharif MD [address], [facility] [address] [place] 208235 Cardiovascular Disease 05/14/22 Livan Sharif MD [address], [facility] [address] [place] 517195 Assigned Heart and Vascular Provider 06/12/22 07/23/22 Catherine Cm MD [address] [facility] [place] 082265 Cardiovascular Disease 07/21/22 Valery Veronica, PA-C [address] [place] [address] 037585 Physician Methods Analyst Dermatology 07/21/22 Catherine Cm MD [address] [facility] [place] 437435 Assigned Heart and Vascular Provider 07/24/22 11/05/22 Johnny Murillo MD [address] 264424 Assigned Musculoskeletal Provider 08/14/22 10/08/22 Brea Quinn APRN COMMUNICATIONS DIRECTOR [address] [place] [address] [phone] Nurse Practitioner Dermatology 09/21/22 Brea Quinn APRN COMMUNICATIONS DIRECTOR [facility] [facility] [place] [address] Assigned Surgical Provider 10/09/22 05/01/24 [place] [address] [place] [address] Assigned Musculoskeletal Provider 10/09/22 05/01/24 Livan Sharif MD [address] [place] [address] [place] [address] Assigned Heart and Vascular Provider 11/06/22 11/12/22 Catherine Cm MD [address] [place] [address] [place] [address] Assigned Heart and Vascular Provider 11/13/22 05/27/23 Sydnie Martinez, RN Personal Advocate & Liaison (PAL) Family Medicine 03/28/23 07/31/23 Alfonso Renteria MD [address] [facility] 200 [place], [place] [phone] Assigned Neuroscience Provider 04/02/23 Cheng Todd PA-C [address] [place] [address] Assigned PCP 04/30/23 07/15/23 Radha Lomeli APRN COMMUNICATIONS DIRECTOR [address] [place] [phone] Assigned Heart and Vascular Provider 05/28/23 Jelena David Radha, OD [address] [facility] [place] [address] MD Ophthalmology 06/15/23 Pao Joseph, RN Personal Advocate & Liaison (PAL) Nurse 08/01/23 11/07/23 Esha Grimm PA-C [address] [place] [phone] Assigned PCP 07/16/23 Valery Veronica PA-C [address] [place] [address] 539475 Physician Methods Analyst Dermatology 09/19/23 Rey Tay MD [address] [place] [address] MD Gastroenterology 09/20/23 Rocky Zepeda DO [address] [place] [address] 923835 Physician Gastroenterology 09/20/23 Philip Dumont MD [address] [place] [address] 216455 Physician Ophthalmology 09/22/23 Meredith Carrera PA-C [address] [place] [address] 738785 Assigned Gastroenterology Provider 11/01/23 Neil Kent MD [address] [address] Dermatology 11/02/23 [place] [address] RA[address] [place] [address] Neurological Surgery 12/26/23 Audrey Waite PA-C [address] [place], [place] 423785 Physician Methods Analyst Dermatology 02/28/24 Valery Veronica PA-C [address] [place] [address] Physician Methods Analyst Dermatology 04/10/24 documented as of this encounter
--- OUTSIDE RECORDS SUMMARY | 2024-05-27 08:54 | XMS_ITS | Encounter Summary ---
Author Organization [facility] Address [address] [place] [address] Care Team Providers Care Sales Apprentice Name Role Phone Lita Oseguera Unavailable Unavailable Marija Edgar APRN CONCRETE FLOAT MAKER Primary Care Provider + Chanelle Mccann APRN CNM Unavailab le Kyara De La Fuente RN Unavailable [phone] Marija Edgar APRN CONCRETE FLOAT MAKER Unavailable Mynor Broussard MD Unavailable [phone] Keisha Dotson MD Unavailable Stacey Briones SENIOR QUALITY ASSURANCE ENGINEER Unavailable Lesley Moody CHW Unavailable Mary Mejia Unavailable Unavailable Lita Oseguera Unavailable Unavailable Galo Burrell MD Unavailable Unavailable Cristina Wood Unavailable Lesley Moody CHW Unavailable Meredith Bedoya Unavailable Unavailable Cristina Wood Unavailable Diana Desir [facility] Unavailable [phone] Rain Galaviz PA-C Unavailable Summer Lara MD Unavailable [phone] Summer Lara MD Unavailable [phone] Summer Lara MD Unavailable + [phone] Tavia Wyatt MD Unavailable Unavailable SemJohnny mckeon MD Unavailable +1- Erica Farrell APRN CONCRETE FLOAT MAKER Unavailable + Vikas Teresitafazal Watson H Unavailable Tavia Wyatt MD Unavailable Unavailable Diana Desir [facility] Unavailable [phone] Rich Barrett MD Unavailable [phone] Neil Kent MD Unavailable Roney Story DPM Unavailable [phone] Erica Farrell TAILOR'S AIDE CONCRETE FLOAT MAKER Unavailable + Diana Desir [facility] Unavailable [phone] Tommy Davidmao Templetone OD Unavailable [phone] Galo Burrell MD Unavailable Unavailable Livan Sharif MD Unavailable + Livan Sharif MD Unavailable + Catherine Cm MD Unavailable + Valery Veronica PA-C Unavailable [phone] Catherine Cm MD Unavailable + Johnny Murillo MD Unavailable +1- Brea Quinn APRN CONCRETE FLOAT MAKER Unavailable [phone] Brea Quinn TAILOR'S AIDE CONCRETE FLOAT MAKER Unavailable [phone] Jose Francisco Johnson MD Unavailable Livan Sharif MD Unavailable + Catherine Cm MD Unavailable + Sydnie Martinez RN Unavailable Unavailable Alfonso Renteria MD Unavailable [phone] Esha Grimm PA-C Primary Care Provider Cheng Todd PA-C Unavailable Radha Lomeli APRN CONCRETE FLOAT MAKER Unavailable FrankieJelena SONJA Unavailable Pao Joseph RN Unavailable Unavailable Esha Grimm PA-C Unavailable [phone] Valery Veronica PA-C Unavailable Rey Tay MD Unavailable Rocky Zepeda DO Unavailable Philip Dumont MD Unavailable Meredith Carrera PA-C Unavailable Neil Kent MD Unavailable Juan Pablo Emmanuel MD Unavailable [phone] Audrey Waite PA-C Unavailable JeremíasValery damon PA-C Unavailable [phone] Reason for Visit * Reason Onset Date Comments MyChart Communication 09/08/2020 Encounter Details Date Type Department Care Team (Latest Contact Info) Description 09/08/2020 MyC Medical Advice [address] [phone] Marija Edgar APRN CONCRETE FLOAT MAKER [address] [place] [phone] MyChart Communication Social [...] week 08/07/2020 How often do you attend [facility] specialty [facility] or [facility] services? More than 4 times [...] Answer Date Recorded PHQ-2 Score 0 08/12/2020 [facility] [...] PM CDT Legal Sex Female 4:13 AM ACID POLYMERIZATION OPERATOR Gender Identity Female 03/02/2021 5:45 PM CDT Sexual Orientation Straight 02/28/2020 12 :51 AM CDT COVID-19 Exposure Response Date Recorded In the last month, have you been in contact with someone who was confirmed or suspected to have Coronavirus / COVID-19? No / Unsure 09/09/2020 10:09 AM ACID POLYMERIZATION OPERATOR documented as of this encounter Miscellaneous [...] RN, BSN Message handled by CLINIC NURSE.' POLYMERIZATION OPERATOR * Telephone Encounter - Ever Cardozo MA - 09/09/2020 7:08 AM CST Triage, could you please see if results are posted yet in regards to patients ultrasound. Ever Cardozo CARDIAC CATH LAB MANAGER ([facility]) POLYMERIZATION OPERATOR documented in this encounter Plan of Treatment Upcoming Encounters Date Type Department Care Team (Late st Contact Info) Description 05/31/2024 8:40 AM ACID POLYMERIZATION OPERATOR Therapy Visit [facility] [address] [place] [phone] Ingris Thompson, PT [facility] [address] [place] [address] [address] [place] [address] 05/31/2024 3:30 PM ACID POLYMERIZATION OPERATOR Office Visit [address] [phone] Audrey Díaz, Herminia Koo MD [address] [place] [address] 06/04/2024 3:30 PM ACID POLYMERIZATION OPERATOR Office Visit [facility] [address] [facility] [address] [place] [address] Jelena David, OD [address] [facility] [place] [address] 06/11/2024 10:30 AM ACID POLYMERIZATION OPERATOR Appointment [facility] Respiratory Therapy [address] [place] [phone] Spec, Nurse Only Med 06/18/2024 2:50 PM ACID POLYMERIZATION OPERATOR Therapy Visit [facility] [address] [place] [phone] Ingris Thompson, PT [facility] [address] [facility] [address] [place] [address] 06/21/2024 2:00 PM ACID POLYMERIZATION OPERATOR Office Visit [facility] Neurology [facility] [address] [place] [address], [address] [place] [phone] [place] [address] [place] [address] Johnny Penn MD [address] [place], [place] [phone] 06/25/2024 8:30 AM ACID POLYMERIZATION OPERATOR Office Visit [address] [phone] Valery Veronica, PA-C [address] [place] [address] 11/28/2024 7:45 AM CDT Virtual Visit [facility] Gastroenterology [place] [address] [facility] 4th [place] [phone] Meredith Carrera PA-C [address] [place] [address] documented as of this encounter Visit Diagnoses Not on filedocumented in this encounter Additional Health Concerns Infection Onset Date Last Indicated Resolved Time Rule Out COVID-19 09/24/2020 09/24/2020 09/24/2020 9:24 AM CDT Rule Out COVID-19 11/05/2020 11/05/2020 11/06/2020 1:09 PM CDT Rule Out COVID-19 05/11/2021 05/11/2021 05/13/2021 10:18 AM CDT Rule Out COVID-19 07/13/2021 07/13/2021 07/14/2021 3:04 PM ACID POLYMERIZATION OPERATOR Rule Out COVID-19 07/18/2021 07/18/2021 07/20/2021 1:56 PM ACID POLYMERIZATION OPERATOR COVID-19 07/18/2021 07/18/2021 08/08/2021 11:3 9 PM ACID POLYMERIZATION OPERATOR Rule Out COVID-19 12/18/2021 12/18/2021 12/19/2021 11:34 AM CDT Rule Out COVID-19 02/24/2022 02/24/2022 02/25/2022 1:08 PM CDT Rule Out COVID-19 04/26/2022 04/26/2022 04/26/2022 6:47 AM CDT Rule Out COVID-19 05/17/2022 05/17/2022 05/17/2022 10:20 PM ACID POLYMERIZATION OPERATOR Rule Out COVID-19 06/09/2022 06/09/2022 06/09/2022 9:35 AM ACID POLYMERIZATION OPERATOR COVID-19 06/09/2022 06/09/2022 06/30/2022 11:4 1 PM ACID POLYMERIZATION OPERATOR Rule Out COVID-19 11/10/2022 11/10/2022 11/11/2022 12:17 PM CDT Rule Out COVID-19 03/07/2023 03/07/2023 03/07/2023 1:20 PM CDT Rule Out COVID-19 12/26/2023 12/26/2023 12/26/2023 9:50 AM CDT Rule Out COVID-19 04/09/2024 04/09/2024 04/10/2024 6:48 PM CDT Assessment Noted Time PHQ-9 Depression Total Score: 9 06/25/20 7:04 AM ACID POLYMERIZATION OPERATOR documented as of this encounter Care Teams Sales Apprentice Relationship Specialty Start Date End Date Marija Edgar APRN CONCRETE FLOAT MAKER PCP - General Nurse Practitioner 04/30/20 04/14/23 Esha Grimm PA-C [address] [place] [phone] PCP - General Family Medicine 05/04/23 Lita Oseguera Personal Advocate & Liaison (PAL) 02/28/20 03/27/23 Chanelle Mccann APRN [place] [address] [place] [address] [address] [place] [address] Assigned OBGYN Provider 05/02/2005/09 Kyara De La Fuente, RN Specialty Real Estate Services Administrator Neurology 06/04/20 03/05/21 Marija Edgar APRN CONCRETE FLOAT MAKER Assigned PCP 06/08/20 04/29/23 Mynor Broussard MD [address] [facility] [address] [place], [place] [address] Assigned Surgical Provider 06/01/20 11/28/21 Keisha Dotson MD [address] [place], [place] [phone] Assigned Neuroscience Provider 06/04/20 04/01/23 Stacey Briones, [facility] Lead Real Estate Services Administrator Primary Care - CC 08/11/2012/30 Lesley Moody, [facility] Community Health Worker 08/11/2010/01 Mary Mejia Financial Resource Worker 09/02/20 10/06/20 Lita Oseguera Personal Advocate & Liaison (PAL) Family Medicine 09/10/20 09/21/20 Galo Burrell MD Assigned Heart and Vascular Provider 10/05/20 04/02/22 Cristina Wood Financial Resource Worker 10/07/20 10/14/20 Lesley Moody, [facility] Community Health Worker 10/23/2012/30 Meredith Bedoya Financial Resource Worker 10/23/20 11/23/20 Cristina Wood Financial Resource Worker 02/09/21 02/09/21 Diana Desir, [facility] [place], [place] [phone] Pharmacist Pharmacist 04/17/21 Rain Galaviz PA-C [address] [place] [address] [address] [place], [place] [phone] Physician Catalyst Recovery Operator Dermatology 04/28/21 Summer Lara MD [address] [place] [address] Assigned OBGYN Provider 05/10/2105/23 Summer Lara MD [address] [place] [address] Assigned OBGYN Provider 05/31/21 2 Summer Lara MD [address] [place] [address] Assigned OBGYN Provider 05/24/2105/30 Tavia Wyatt MD [address] [place] [address] Dermatology 07/14/21 Johnny Murillo MD [address] [place] [address] Assigned Musculoskeletal Provider 08/30/21 03/17/22 Erica Farrell APRN CONCRETE FLOAT MAKER [address] [facility] [address] [place], [place] [phone] Nurse Practitioner Cardiovascular Disease 09/09/21 Teresita Bean [facility] [address] [place], [place] [phone] Pharmacist Pharmacist 09/24/21 09/29/21 Tavia Wyatt MD Assigned Surgical Provider 11/29/21 05/07/22 [facility] [address] [place] [address] Assigned MTM Pharmacist 01/02/22 Rich Barrett MD [address] [address] Physician Ophthalmology 01/21/22 Neil Kent MD [address] [place] [address] [place] [address] Dermatology 02/24/22 Roney Story DPM [address] [facility] [address] [place] [address] Assigned Musculoskeletal Provider 03/20/22 08/13/22 Erica Farrell APRN CONCRETE FLOAT MAKER [address] [place] [address] Assigned Heart and Vascular Provider 04/03/22 04/16/22 Diana Desir, [facility] [address] [place] [address] Assigned MTM Pharmacist 04/07/22 Jelena David OD [address] [facility] [place] [address] Assigned Surgical Provider 05/08/22 10/08/22 Galo Burrell MD Assigned Heart and Vascular Provider 04/17/22 06/11/22 Livan Sharif MD [address] [place] [address] Cardiovascular Disease 05/14/22 Livan Sharif MD [address] [place] [address] Assigned Heart and Vascular Provider 06/12/22 07/23/22 Catherine Cm MD [address] [place] [phone] Cardiovascular Disease 07/21/22 Valery Veronica PA-C [address] [place] [address] Physician Catalyst Recovery Operator Dermatology 07/21/22 Catherine Cm MD [address] [place] [address] Assigned Heart and Vascular Provider 07/24/22 11/05/22 Jhonny Murillo MD [address] [place] [address] Assigned Musculoskeletal Provider 08/14/22 10/08/22 Brea Quinn APRN CONCRETE FLOAT MAKER [address] [place] [address] Nurse Practitioner Dermatology 09/21/22 Brea Quinn APRN CONCRETE FLOAT MAKER [address] [place] [address] Assigned Surgical Provider 10/09/22 05/01/24 [place] [address] [address] Assigned Musculoskeletal Provider 10/09/22 05/01/24 Livan Sharif MD [address] [place] [address] [place] [address] Assigned Heart and Vascular Provider 11/06/22 11/12/22 Catherine Cm MD [address] [place] [address] Assigned Heart and Vascular Provider 11/13/22 05/27/23 Sydnie Martinez RN Personal Advocate & Liaison (PAL) Family Medicine 03/28/23 07/31/23 Alfonso Renteria MD [address] [facility] [address] [place] [address] Assigned Neuroscience Provider 04/02/23 Cheng Todd PA-C [address] [place] [phone] Assigned PCP 04/30/23 07/15/23 Radha Lomeli APRN CONCRETE FLOAT MAKER [address] [place] [address] Assigned Heart and Vascular Provider 05/28/23 Jelena David OD [address] [facility] [place] [address] Ophthalmology 06/15/23 Pao Joseph RN Personal Advocate & Liaison (PAL) Nurse 08/01/23 11/07/23 Esha Grimm PA-C [address] [place] [phone] Assigned PCP 07/16/23 Valery Veronica PA-C [address] [place] [address] Physician Catalyst Recovery Operator Dermatology 09/19/23 Rey Tay MD [address] [place] [address] MD Gastroenterology 09/20/23 Rocky Zepeda DO [address] [place] [address] Physician Gastroenterology 09/20/23 Philip [place] MD [address] [place] [address] Physician Ophthalmology 09/22/23 Meredith Carrera PA-C [address] [place], [place] 15[address] Assigned Gastroenterology Provider 11/01/23 Neil Kent MD [address] [place] [address] Dermatology 11/02/23 [place] [address] [place], [place] [address] Neurological Surgery 12/26/23 Audrey Waite PA-C [address] [place] [address] Physician Catalyst Recovery Operator Dermatology 02/28/24 Valery Veronica PA-C [address] [place] [address] Physician Catalyst Recovery Operator Dermatology 04/10/24 documented as of this encounter
--- OUTSIDE RECORDS SUMMARY | 2024-05-27 08:54 | XMS_ITS | Encounter Summary ---
Author Organization [facility] Address [address] [place] [address] Care Team Providers Care Hostel Manager Name Role Phone Lita Oseguera Unavailable Unavailable Marija Edgar APRN HEALTH INFORMATICS SPECIALIST Primary Care Provider + Chanelle Mccann WORK ADJUSTMENT INSTRUCTOR CNM Unavailab le Kyara De La Fuente RN Unavailable [phone] Marija Edgar APRN HEALTH INFORMATICS SPECIALIST Unavailable Mynor Broussard MD Unavailable [phone] Keisha Dotson MD Unavailable [phone] Stacey Briones STRIP CATCHER Unavailable [phone] Mary Mejia Unavailable Unavailable Galo Burrell MD Unavailable Unavailable Cristina Wood Unavailable Lesley Moody CHW Unavailable Meredith Bedoya Unavailable Unavailable Cristina Wood Unavailable Diana Desir [facility] Unavailable Rain Galaviz PA-C Unavailable Summer Lara MD Unavailable [phone] Summer Lara MD Unavailable [phone] Summer Lara MD Unavailable [phone] Tavia Wyatt MD Unavailable Unavailable Johnny Murillo MD Unavailable +1- Erica Farrell WORK ADJUSTMENT INSTRUCTOR HEALTH INFORMATICS SPECIALIST Unavailable + Teresita Bean [facility] Unavailable Tavia Wyatt MD Unavailable Unavailable Diana Desir [facility] Unavailable [phone] Rich Barrett MD Unavailable Neil Kent MD Unavailable Roney Story DPM Unavailable [phone] Bud, Erica Guidry WORK ADJUSTMENT INSTRUCTOR HEALTH INFORMATICS SPECIALIST Unavailable + Diana Desir [facility] Unavailable [phone] Jelena David Unavailable Galo Burrell MD Unavailable Unavailable Livan Sharif MD Unavailable + Livan Sharif MD Unavailable + Catherine Cm MD Unavailable + Valery Veronica PA-C Unavailable [phone] Catherine Cm MD Unavailable + Johnny Murillo MD Unavailable +1- Brae Quinn WORK ADJUSTMENT INSTRUCTOR HEALTH INFORMATICS SPECIALIST Unavailable [phone] Brea Quinn WORK ADJUSTMENT INSTRUCTOR HEALTH INFORMATICS SPECIALIST Unavailable [phone] Jose Francisco Johnson MD Unavailable + Livan Sharif MD Unavailable + Catherine Cm MD Unavailable + Sydnie Martinez RN Unavailable Unavailable Alfonso Renteria MD Unavailable [phone] Esha Grimm PA-C Primary Care Provider [phone] Cheng Todd PA-C Unavailable Radha Lomeli APRN HEALTH INFORMATICS SPECIALIST Unavailable Jelena David OD Unavailable Pao Joseph RN Unavailable Unavailable Esha Grimm PA-C Unavailable [phone] Valery Veronica PA-C Unavailable Rey Tay MD Unavailable Rocky Zepeda DO Unavailable Philip Dumont MD Unavailable [phone] Meredith Carrera PA-C Unavailable [phone] Neil Kent MD Unavailable Juan Pablo Emmanuel MD Unavailable [phone] Audrey Waite PA-C Unavailable [phone] Valery Veronica PA-C Unavailable Encounter Details Date Type Department Care Team (Late st Contact Info) Description 10/02/2020 MyC Medical Advice [facility] Care Coordination [address] [place] [phone] Stacey Briones, [facility] Social History Tobacco Use Types Packs/Day [...] do you attend chur or yarsani services? More than 4 times [...] Answer Date Recorded PHQ-2 Score 3 09/29/2020 [facility] [place] of Occupat ional Health - Occupational Stress [...] PM CDT Legal Sex Female 4:13 AM BOOM CONVEYOR OPERATOR Gender Identity Female 03/02/2021 5:45 PM [...] st Contact Info) Description 05/31/2024 8:40 AM BOOM CONVEYOR OPERATOR Therapy Visit [facility] [address] [place] [address] Ingris Thompson, PT [facility] [address] [place] [address] [address] [place] [address] 05/31/2024 3:30 PM BOOM CONVEYOR OPERATOR Office Visit [facility] Specialty [facility] [address] [phone] [place] [address] Audrey Díaz, Herminia Koo MD [address] [place] [phone] 06/04/2024 3:30 PM BOOM CONVEYOR OPERATOR Office Visit [facility] [address] [facility] [address] [place] [phone] Jelena David, [address] [place] [address] [place] [address] 06/11/2024 10:30 AM BOOM CONVEYOR OPERATOR Appointment [facility] Respiratory Therapy [address] [place] [phone] Spec, Nurse Only Med 06/18/2024 2:50 PM BOOM CONVEYOR OPERATOR Therapy Visit [facility] Rehabilitation Services [address] [place] [phone] Ingris Thompson, PT [facility] [address] [place] [address] 06/21/2024 2:00 PM BOOM CONVEYOR OPERATOR Office Visit [facility] Neurology Clin[facility] - [place] [address] [facility], [address] [place] [phone] [place] [address] [place] [address] Johnny Penn MD [address] [place] [phone] 06/25/2024 8:30 AM BOOM CONVEYOR OPERATOR Office Visit [address] [phone] Valery Veronica PA-C [address] [place] [address] 11/28/2024 7:45 AM CDT Virtual Visit [facility] Gastroenterology Clinic [address] 4th [place] [phone] Meredith Carrera PA-C [address] [place] [address] [phone] documented as of this encounter Visit Diagnoses Not on filedocumented in this encounter Additional Health Concerns Infection Onset Date Last Indicated Resolved Time Rule Out COVID-19 11/05/2020 11/05/2020 11/06/2020 1:09 PM CDT Rule Out COVID-19 05/11/2021 05/11/2021 05/13/2021 10:18 AM CDT Rule Out COVID-19 07/13/2021 07/13/2021 07/14/2021 3:04 PM BOOM CONVEYOR OPERATOR Rule Out COVID-19 07/18/2021 07/18/2021 07/20/2021 1:56 PM BOOM CONVEYOR OPERATOR COVID-19 07/18/2021 07/18/2021 08/08/2021 11:3 9 PM BOOM CONVEYOR OPERATOR Rule Out COVID-19 12/18/2021 12/18/2021 12/19/2021 11:34 AM CDT Rule Out COVID-19 02/24/2022 02/24/2022 02/25/2022 1:08 PM CDT Rule Out COVID-19 04/26/2022 04/26/2022 04/26/2022 6:47 AM CDT Rule Out COVID-19 05/17/2022 05/17/2022 05/17/2022 10:20 PM BOOM CONVEYOR OPERATOR Rule Out COVID-19 06/09/2022 06/09/202206/0906/09/2022 9:35 AM BOOM CONVEYOR OPERATOR COVID-19 06/09/2022 06/09/2022 06/30/2022 11:4 1 PM BOOM CONVEYOR OPERATOR Rule Out COVID-19 11/10/2022 11/10/2022 11/11/2022 12:17 PM CDT Rule Out COVID-19 03/07/2023 03/07/2023 03/07/2023 1:20 PM CDT Rule Out COVID-19 12/26/2023 12/26/2023 12/26/2023 9:50 AM CDT Rule Out COVID-19 04/09/2024 04/09/2024 04/10/2024 6:48 PM CDT Assessment Noted Time PHQ-9 Depression Total Score: 6 09/30/19 3:25 PM CDT documented as of this encounter Care Teams Hostel Manager Relationship Specialty Start Date End Date Marija Edgar APRN HEALTH INFORMATICS SPECIALIST PCP - General Nurse Practitioner 04/30/20 04/14/23 Esha Grimm PA-C [address] [place] [phone] PCP - General Family Medicine 05/04/23 Lita Oseguera Personal Advocate & Liaison (PAL) 02/28/20 03/27/23 Chanelle Mccann APRN CNM [address] [address] Assigned OBGYN Provider 05/02/2005/09 Kyara De La Fuente, VJ Specialty Partition Setter Neurology 06/04/20 03/05/21 Marija Edgar APRN HEALTH INFORMATICS SPECIALIST Assigned PCP 06/08/20 04/29/23 Mynor Broussard MD [address] [place] [address] Assigned Surgical Provider 06/01/20 11/28/21 Keisha Dotson MD [address] [place] [address] Assigned Neuroscience Provider 06/04/20 04/01/23 Stacey Briones, [facility] Lead Partition Setter Primary Care - CC 08/11/2012/30 Mary Mejia Financial Resource Worker 09/02/20 10/06/20 Galo Burrell MD Assigned Heart and Vascular Provider 10/05/20 04/02/22 Cristina Wood Financial Resource Worker 10/07/20 10/14/20 Lesley Moody, [facility] Community Health Worker 10/23/2012/30 Meredith Bedoya Financial Resource Worker 10/23/20 11/23/20 Cristina Wood Financial Resource Worker 02/09/21 02/09/21 Diana Desir, [facility] [address] [place] [address] Pharmacist Pharmacist 04/17/21 Rain Galaviz PA-C [address] [address] [place] [address] Physician Transportation Broker Dermatology 04/28/21 Summer Lara MD [address] [place], [place] [address] Assigned OBGYN Provider 05/10/2105/23 Summer Lara MD [address] [place] [address] Assigned OBGYN Provider 05/31/21 2 Summer Lara MD [address] [place] [address] Assigned OBGYN Provider 05/24/2105/30 Tavia Wyatt MD [address] [place] [address] [facility] 07/14/21 Johnny Murillo MD [address] [place] [address] Assigned Musculoskeletal Provider 08/30/21 03/17/22 Erica Farrell APRN HEALTH INFORMATICS SPECIALIST [address] [facility] [address] [place] [address] Nurse Practitioner Cardiovascular Disease 09/09/21 Teresita Bean [facility] [address] [place] [phone] Pharmacist Pharmacist 09/24/21 09/29/21 Tavia Wyatt MD Assigned Surgical Provider 11/29/21 05/07/22 [facility] [address] [place] [address] Assigned MTM Pharmacist 01/02/22 Rich Barrett MD [address] [facility] [address] [place] [address] Physician Ophthalmology 01/21/22 Neil Kent MD 500 [place] [address] Dermatology 02/24/22 Roney Story DPM [address] [facility] [address] [place] [address] Assigned Musculoskeletal Provider 03/20/22 08/13/22 Erica Farrell APRN HEALTH INFORMATICS SPECIALIST [address] [place] [address] Assigned Heart and Vascular Provider 04/03/22 04/16/22 [facility] [address] [place] [address] Assigned MTM Pharmacist 04/07/22 Jelena David OD [address] [facility] [place] [address] Assigned Surgical Provider 05/08/22 10/08/22 Galo Burrell MD Assigned Heart and Vascular Provider 04/17/22 06/11/22 Livan Sharif MD [address] [place] 962645 Cardiovascular Disease 05/14/22 Livan Sharif MD [address] [place] [address]505 Assigned Heart and Vascular Provider 06/12/22 07/23/22 Catherine Cm MD [address] [facility] [place] [address] Cardiovascular Disease 07/21/22 Valery Veronica PAUcheC [address] [place] [address]695 Physician Transportation Broker Dermatology 07/21/22 Catherine Cm MD [address] [place] [address] [place] [address] Assigned Heart and Vascular Provider 07/24/22 11/05/22 Johnny Murillo MD [address] [place] [address] Assigned Musculoskeletal Provider 08/14/22 10/08/22 Brea Quinn APRN HEALTH INFORMATICS SPECIALIST [address] [place] [address] Nurse Practitioner Dermatology 09/21/22 Brea Quinn APRN HEALTH INFORMATICS SPECIALIST [address] [place] [address] [place] [address] Assigned Surgical Provider 10/09/22 05/01/24 [place] [address] [place] [address] [place] [address] Assigned Musculoskeletal Provider 10/09/22 05/01/24 Livan Sharif MD [address], [facility] [place] [address] Assigned Heart and Vascular Provider 11/06/22 11/12/22 Catherine Cm MD [address] [facility] [address] [place] [address] Assigned Heart and Vascular Provider 11/13/22 05/27/23 Sydnie Martinez RN Personal Advocate & Liaison (PAL) Family Medicine 03/28/23 07/31/23 Alfonso Renteria MD [address] [facility] 200 [place] [address] Assigned Neuroscience Provider 04/02/23 Cheng Todd PA-C [address] [place] [address] [phone] Assigned PCP 04/30/23 07/15/23 Radha Lomeli APRN HEALTH INFORMATICS SPECIALIST [address] [place] [address] Assigned Heart and Vascular Provider 05/28/23 Jelena David OD [address] [facility] [place] [address] Ophthalmology 06/15/23 Pao Joseph, VJ Personal Advocate & Liaison (PAL) Nurse 08/01/23 11/07/23 Esha Grimm PA-C [address] [place] [phone] Assigned PCP 07/16/23 Valery Veronica PA-C [address] [place] [address] Physician Transportation Broker Dermatology 09/19/23 Rey Tay MD 9 [place] [address] MD Gastroenterology 09/20/23 Rocky Zepeda DO 500 [place] [address] Physician Gastroenterology 09/20/23 Philip Dumont MD 6 [place] [address] Physician Ophthalmology 09/22/23 Meredith Carrera PA-C 9 [place] [address] Assigned Gastroenterology Provider 11/01/23 Neil Kent MD [address] [place] [address] Dermatology 11/02/23 [place] [address] [place] [address] Neurological Surgery 12/26/23 Audrey Waite PA-C [address] [place] [address] Physician Transportation Broker Dermatology 02/28/24 Valery Veronica PA-C [address] [place] [address] Physician Transportation Broker Dermatology 04/10/24 documented as of this encounter
--- OUTSIDE RECORDS SUMMARY | 2024-05-27 08:54 | XMS_ITS | Encounter Summary ---
Author Organization [facility] Address [address] [place] [address] Care Team Providers Care Registered Dental Assistant Name Role Phone Lita Oseguera Unavailable Unavailable Marija Edgar APRN MCAT INSTRUCTOR Primary Care Provider + Chanelle Mccann MEDICAL BILLER/CODER CNM Unavailab le yKara De La Fuente RN Unavailable [phone] Marija Edgar APRN MCAT INSTRUCTOR Unavailable [phone] Mynor Broussard MD Unavailable [phone] Keisha Dotson MD Unavailable Mary Mejia Unavailable Unavailable Stacey Briones RETAIL MORTGAGE BANKER Unavailable [phone] Lesley Moody CHW Unavailable Mary Mejia Unavailable Unavailable Lita Oseguera Unavailable Unavailable Galo Burrell MD Unavailable Unavailable Cristina Wood Unavailable Lesley Moody CHW Unavailable [phone] Meredith Bedoya Unavailable Unavailable Cristina Wood Unavailable Diana Desir [facility] Unavailable Ruhland, Rain Lena PA-C Unavailable Summer Lara MD Unavailable [phone] Summer Lara MD Unavailable [phone] Summer Lara MD Unavailable [phone] Tavia Wyatt MD Unavailable Unavailable SemJohnny mckeon MD Unavailable [phone] Erica Frarell APRN MCAT INSTRUCTOR Unavailable + Vikas Teresita Watson H Unavailable Tavia Wyatt MD Unavailable Unavailable Diana Desir [facility] Unavailable [phone] Rich Barrett MD Unavailable [phone] Neil Kent MD Unavailable Roney Story DPM Unavailable [phone] Erica Farrell APRN MCAT INSTRUCTOR Unavailable + Diana Desir [facility] Unavailable [phone] Jeelna David Radha OD Unavailable Galo Burrell MD Unavailable Unavailable Livan Sharif MD Unavailable + Livan Sharif MD Unavailable + Catherine Cm MD Unavailable + Valery Veronica PA-C Unavailable [phone] Catherine Cm MD Unavailable + Johnny Murillo MD Unavailable +[phone] Brea Quinn APRN MCAT INSTRUCTOR Unavailable [phone] Brea Quinn MEDICAL BILLER/CODER MCAT INSTRUCTOR Unavailable [phone] Jose Francisco Johnson MD Unavailable Livan Sharif MD Unavailable + Catherine Cm MD Unavailable + Sydnie Martinez RN Unavailable Unavailable Alfonso Renteria MD Unavailable [phone] Esha Grimm PA-C Primary Care Provider [phone] Cheng Todd PA-C Unavailable Radha Lomeli APRN MCAT INSTRUCTOR Unavailable FrankieJelenae OD Unavailable Pao Joseph RN Unavailable Unavailable Esha Grimm PA-C Unavailable [phone] Valery Veronica PA-C Unavailable Rey Tay MD Unavailable Rocky Zepeda DO Unavailable Philip Dumont MD Unavailable Meredith Carrera PA-C Unavailable Neil Kent MD Unavailable Juan Pablo Emmanuel MD Unavailable Adurey Waite PA-C Unavailable [phone] JeremíasValery damon PA-C Unavailable Encounter Details Date Type Department Care Team (Late st Contact Info) Description 07/17/[address] [facility]psy [facility] [address], [address] [place] [address] Keisha Dotson MD [address] [place] [address] Social History Tobacco Use [...] PM CDT Legal Sex Female 4:13 AM MANAGER DIGITAL Gender Identity Female 03/02/2021 5:45 PM CDT Sexual Orientation Straight 02/28/2020 12 :51 AM CDT COVID-19 Exposure Response Date Recorded In the last month, have you been in contact with someone who was confirmed or suspected to have Coronavirus / COVID-19? No / Unsure 06/24/2020 3:01 PM MANAGER DIGITAL documented as of this encounter Miscellaneous Notes [...] her shewouldn't need medication her whole life. GER DIGITAL documented in this encounter Plan of Treatment Upcoming Encounters Date Type Department Care Team (Late st Contact Info) Description 05/31/2024 8:40 AM MANAGER DIGITAL Therapy Visit [facility] [address] [place] [address] Ingris Thompson, PT [facility] [address] [place] [address] [phone] 05/31/2024 3:30 PM MANAGER DIGITAL Office Visit [facility] [place] [address] [place] [phone] Audrey Díaz, Herminia Koo MD [address] [place] [address] 06/04/2024 3:30 PM MANAGER DIGITAL [facility] [address] [facility] [address] [place] [phone] Jelena David, [address] [facility] [place] [address] 06/11/2024 10:30 AM MANAGER DIGITAL Appointment [facility] Respiratory Therapy [address] [place] [phone] Spec, Nurse Only Med 06/18/2024 2:50 PM MANAGER DIGITAL Therapy Visit [facility] [address] [place] [phone] Ingris Thompson, PT [facility] [address] [place] [address] [address] [place], [place] [address] 06/21/2024 2:00 PM MANAGER DIGITAL Office Visit [facility] [address] [place] [address], [address] [place] [phone] [place] [address] [place] [phone] Johnny Penn MD [address] [facility] [place] [phone] 06/25/2024 8:30 AM MANAGER DIGITAL Office Visit [facility] [place] [place] [address] [place] [address] Valery Veronica PA-C [address] [place] [address] 11/28/2024 7:45 AM CDT Virtual Visit [facility] [address] 4[address] [place] [phone] Meredith Carrera PA-C [address] [place] [address] documented as of this encounter Visit Diagnoses Not on filedocumented in this encounter Additional Health Concerns Infection Onset Date Last Indicated Resolved Time Rule Out COVID-19 07/30/2020 07/30/2020 07/30/2020 7:11 PM MANAGER DIGITAL Rule Out COVID-19 08/30/2020 08/30/2020 08/30/2020 5:05 PM MANAGER DIGITAL Rule Out COVID-19 09/24/2020 09/24/2020 09/24/2020 9:24 AM CDT Rule Out COVID-19 11/05/2020 11/05/2020 11/06/2020 1:09 PM CDT Rule Out COVID-19 05/11/2021 05/11/2021 05/13/2021 10:18 AM CDT Rule Out COVID-19 07/13/2021 07/13/2021 07/14/2021 3:04 PM MANAGER DIGITAL Rule Out COVID-19 07/18/2021 07/18/2021 07/20/2021 1:56 PM MANAGER DIGITAL COVID-19 07/18/2021 07/18/2021 08/08/2021 11:3 9 PM MANAGER DIGITAL Rule Out COVID-19 12/18/2021 12/18/2021 12/19/2021 11:34 AM CDT Rule Out COVID-19 02/24/2022 02/24/2022 02/25/2022 1:08 PM CDT Rule Out COVID-19 04/26/2022 04/26/2022 04/26/2022 6:47 AM CDT Rule Out COVID-19 05/17/2022 05/17/2022 05/17/2022 10:20 PM MANAGER DIGITAL Rule Out COVID-19 06/09/2022 06/09/2022 06/09/2022 9:35 AM MANAGER DIGITAL COVID-19 06/09/2022 06/09/2022 06/30/2022 11:4 1 PM MANAGER DIGITAL Rule Out COVID-19 11/10/2022 11/10/2022 11/11/2022 12:17 PM CDT Rule Out COVID-19 03/07/2023 03/07/2023 03/07/2023 1:20 PM CDT Rule Out COVID-19 12/26/2023 12/26/2023 12/26/2023 9:50 AM CDT Rule Out COVID-19 04/09/2024 04/09/2024 04/10/2024 6:48 PM CDT Assessment Noted Time PHQ-9 Depression Total Score: 9 06/25/20 20 7:04 AM MANAGER DIGITAL documented as of this encounter Care Teams Registered Dental Assistant Relationship Specialty Start Date End Date Marija Edgar APRN MCAT INSTRUCTOR PCP - General Nurse Practitioner 04/30/20 04/14/23 Esha Grimm PA-C [address] [place] [phone] PCP - General Family Medicine 05/04/23 Lita Oseguera Personal Advocate & Liaison (PAL) 02/28/20 03/27/23 Chanelle Mccann APRN CNM [address] [place] [address] Assigned OBGYN Provider 05/02/2005/09 Kyara De La Fuente, RN Specialty Manager Operational Neurology 06/04/20 03/05/21 Marija Edgar APRN MCAT INSTRUCTOR Assigned PCP 06/08/20 04/29/23 Mynor Broussard MD [address] [phone] Assigned Surgical Provider 06/01/20 11/28/21 Keisha Dotson MD [address] [place] [address] Assigned Neuroscience Provider 06/04/20 04/01/23 Mary Mejia Financial Resource Worker 08/07/20 08/21/20 Stacey Briones, [facility] Lead Manager Operational Primary Care - CC 08/11/2012/30 Lesley Moody, [facility] Community Health Worker 08/11/2010/01 Mary Mejia Financial Resource Worker 09/02/20 10/06/20 Lita Oseguera Personal Advocate & Liaison (PAL) Family Medicine 09/10/20 09/21/20 Galo Burrell MD Assigned Heart and Vascular Provider 10/05/20 04/02/22 Cristina Wood Financial Resource Worker 10/07/20 10/14/20 Lesley Moody, [facility] Community Health Worker 10/23/2012/30 Meredith Bedoya Financial Resource Worker 10/23/20 11/23/20 Cristina Wood Financial Resource Worker 02/09/21 02/09/21 Diana Desir, [facility] [address] [place] [address] Pharmacist Pharmacist 04/17/21 Rain Galaviz PA-C [address] [place] [address] [place] [address] Physician Luggage Maker Dermatology 04/28/21 Summer Lara MD [address] [place] [address] Assigned OBGYN Provider 05/10/2105/23 Summer Lara MD [address] [place] [address] Assigned OBGYN Provider 05/31/21 2 Summer Lara MD [address] [place] [address] Assigned OBGYN Provider 05/24/2105/30 Tavia Wyatt MD [address] [place] [address] Dermatology 07/14/21 Johnny Murillo MD [facility] [address] [place] [address] Assigned Musculoskeletal Provider 08/30/21 03/17/22 Erica Farrell APRN MCAT INSTRUCTOR [address] [facility] [address] [place] [address] Nurse Practitioner Cardiovascular Disease 09/09/21 Teresita Bean, [facility] [address] [place] [phone] Pharmacist Pharmacist 09/24/21 09/29/21 Tavia Wyatt MD Assigned Surgical Provider 11/29/21 05/07/22 Diana Desir, [facility] [address] [place] [address] Assigned MTM Pharmacist 01/02/22 Rich Barrett MD [address] [phone] Physician Ophthalmology 01/21/22 Neil Kent MD [address] [place], [place] [address] Dermatology 02/24/22 Roney Story DPM [address] [facility] [address] [place] [address] Assigned Musculoskeletal Provider 03/20/22 08/13/22 Erica Farrell APRN MCAT INSTRUCTOR [address] [place] [address] Assigned Heart and Vascular Provider 04/03/22 04/16/22 Diana Desir, [facility] [address] [place] [address] Assigned MTM Pharmacist 04/07/22 Jelena David OD [address] [facility] [place] [address] Assigned Surgical Provider 05/08/22 10/08/22 Galo Burrell MD Assigned Heart and Vascular Provider 04/17/22 06/11/22 Livan Sharif MD [address], [facility] [address] [place] [address] Cardiovascular Disease 05/14/22 Livan Sharif MD [address], [facility] [address] [place] [address] Assigned Heart and Vascular Provider 06/12/22 07/23/22 Catherine Cm MD [address] [facility]00 [place] [address] Cardiovascular Disease 07/21/22 Valery Veronica, PA-C [address] [place] [address] Physician Luggage Maker Dermatology 07/21/22 Catherine Cm MD [address] [facility] [address] [place] [address] Assigned Heart and Vascular Provider 07/24/22 11/05/22 Johnny Murillo MD [address] [place] [address] 366014 Assigned Musculoskeletal Provider 08/14/22 10/08/22 Brea Quinn APRN MCAT INSTRUCTOR [address] [place] [address] [phone] Nurse Practitioner Dermatology 09/21/22 Brea Quinn APRN MCAT INSTRUCTOR [address] [place] [address], [place] [address] Assigned Surgical Provider 10/09/22 05/01/24 [place] [address] [place] [address] Assigned Musculoskeletal Provider 10/09/22 05/01/24 Livan Sharif MD [address] [facility] [address] [place] [address] Assigned Heart and Vascular Provider 11/06/22 11/12/22 Catherine Cm MD [address] [facility]00 [place] 118045 Assigned Heart and Vascular Provider 11/13/22 05/27/23 Sydnie Martinez RN Personal Advocate & Liaison (PAL) Family Medicine 03/28/23 07/31/23 Alfonso Renteria MD [address] [facility] 200 [place] [address] Assigned Neuroscience Provider 04/02/23 Cheng Todd PA-C [address] [place] [address] Assigned PCP 04/30/23 07/15/23 Radha Lomeli APRN MCAT INSTRUCTOR [address] [place] [address] Assigned Heart and Vascular Provider 05/28/23 Jelena David OD [address] [facility] [place] [address] MD Ophthalmology 06/15/23 Pao Joseph, RN Personal Advocate & Liaison (PAL) Nurse 08/01/23 11/07/23 Esha Grimm PA-C [address] [place] [address] Assigned PCP 07/16/23 Valery Veronica PA-C [address] [place] [address] Physician Luggage Maker Dermatology 09/19/23 Rey Tay MD [address] [place] [address] MD Gastroenterology 09/20/23 Rocky Zepeda DO [address] [place] [address] Physician Gastroenterology 09/20/23 Philip Dumont MD [address] [place] [address] Physician Ophthalmology 09/22/23 Meredith Carrera PA-C [address] [place] [address] Assigned Gastroenterology Provider 11/01/23 Neil Kent MD [address] [phone] Dermatology 11/02/23 [place] [address] [place] [address] Neurological Surgery 12/26/23 Audrey Waite PA-C [address] [place], [place] 450[address] Physician Luggage Maker Dermatology 02/28/24 Valery Veronica PA-C [address] [place] [address] Physician Luggage Maker Dermatology 04/10/24 documented as of this encounter
--- OUTSIDE RECORDS SUMMARY | 2024-05-27 08:54 | XMS_ITS | Encounter Summary ---
Author Organization [facility] Address [address] [place] [address] Care Team Providers Care Boat Wrapper Name Role Phone Lita Oseguera Unavailable Unavailable Marija Edgar APRN ORTHOPEDIC PHYSICAL THERAPIST Primary Care Provider + Chanelle Mccann PRINCIPAL PROCESS ENGINEER CNM Unavailab le Kyara De La Fuente RN Unavailable [phone] Marija Edgar APRN ORTHOPEDIC PHYSICAL THERAPIST Unavailable Mynor Broussard MD Unavailable Keisha Dotson MD Unavailable Mary Mejia Unavailable Unavailable Stacey Briones [employer] [facility] Unavailable Lesley Moody CHW Unavailable [phone] Mary Mejia Unavailable Unavailable Lita Oseguera Unavailable Unavailable Galo Burrell MD Unavailable Unavailable Cristina Wood Unavailable Lesley Moody CHW Unavailable [phone] Meredith Bedoya Unavailable Unavailable Cristina Wood Unavailable Diana Desir [facility] Unavailable Ruhland, Rain Lena PA-C Unavailable Summer Lara MD Unavailable [phone] Summer Lara MD Unavailable [phone] Summer Lara MD Unavailable [phone] Tavia Wyatt MD Unavailable Unavailable SemJohnny mckeon MD Unavailable +[phone] Erica Farrell APRN ORTHOPEDIC PHYSICAL THERAPIST Unavailable + Vikas Teresita Watson H Unavailable Tavia Wyatt MD Unavailable Unavailable Diana Desir [facility] Unavailable [phone] Rich Barrett MD Unavailable [phone] Neil Kent MD Unavailable Roney Story DPM Unavailable [phone] Erica Farrell APRN ORTHOPEDIC PHYSICAL THERAPIST Unavailable + Diana Desir [facility] Unavailable [phone] Jelena David Radha OD Unavailable [phone] Galo Burrell MD Unavailable Unavailable Livan Sharif MD Unavailable + Livan Sharif MD Unavailable + Catherine Cm MD Unavailable + Valery Veronica PA-C Unavailable [phone] Catherine Cm MD Unavailable + Johnny Murillo MD Unavailable +[phone] Brea Quinn APRN ORTHOPEDIC PHYSICAL THERAPIST Unavailable [phone] Brea Quinn PRINCIPAL PROCESS ENGINEER ORTHOPEDIC PHYSICAL THERAPIST Unavailable [phone] Jose Francisco Johnson MD Unavailable Livan Sharif MD Unavailable + Catherine Cm MD Unavailable + Sydnie Martinez RN Unavailable Unavailable Alfonso Renteria MD Unavailable [phone] Esha Grimm PA-C Primary Care Provider Cheng Todd PA-C Unavailable Radha Lomeli APRN ORTHOPEDIC PHYSICAL THERAPIST Unavailable Frankie Jelenamao Garcia OD Unavailable [phone] Pao Joseph RN Unavailable Unavailable Esha Grimm PA-C Unavailable [phone] Valery Veronica PA-C Unavailable Rey Tay MD Unavailable Rocky Zepeda DO Unavailable Philip Dumont MD Unavailable [phone] Meredith Carrera PA-C Unavailable Neil Kent MD Unavailable Juan Pablo Emmanuel MD Unavailable Audrey Waite PA-C Unavailable JeremíasValery damon PA-C Unavailable Encounter Details Date Type Department Care Team (Late st Contact Info) Description 08/01/2020 MyC Medical Advice [address] [address] Marija Edgar APRN ORTHOPEDIC PHYSICAL THERAPIST [address] [place] [address] Social History Tobacco Use Types Packs/Day [...] PM CDT Legal Sex Female 4:13 AM [employer] Gender Identity Female 03/02/2021 5:45 PM CDT Sexual Orientation Straight 02/28/2020 12 :51 AM CDT COVID-19 Exposure Response Date Recorded In the last month, have you been in contact with someone who was confirmed or suspected to have Coronavirus / COVID-19? No / Unsure 07/30/2020 4:53 PM [employer] [place] documented as of this encounter Miscellaneous Notes * Telephone Encounter - Estephania Black RN - 08/01/2020 9:11 AM [employer] [place] Schedule patient for Zio Patch. Detailed message left on phone and through [employer]. Estephania Black RN Flex [employer] * Telephone Encounter - Marija Edgar APRN CNP - 08/01/2020 8:46 AM [employer] [place] Please help patient schedule her zio patch. This order has been in place since 05/2020 and a new order was placed this week. [employer] documented in this encounter Plan of Treatment Upcoming Encounters Date Type Department Care Team (Late st Contact Info) Description 05/31/2024 8:40 AM [employer] [place] Therapy Visit [facility] [address] [place] [phone] Ingris Thompson, PT [facility] [address] [place] [phone] 05/31/2024 3:30 PM [employer] [place] Office Visit [facility] [address] [phone] Audrey Díaz, Herminia Koo MD [address] [place] [address] 06/04/2024 3:30 PM [employer] [place] Office Visit [facility] [address] [facility] [address] [place] [phone] Frankie Jelena Garcia, [place] [address] [facility] [place] [address] 06/11/2024 10:30 AM [employer] [place] Appointment [facility] Respiratory Therapy [address] [place] [phone] Spec, Nurse Only Med 06/18/2024 2:50 PM [employer] Therapy Visit [facility] [place] [phone] [place] [address] [address] [place] [phone] Ingris Thompson, PT [facility] [address] [facility] [address] [place], [place] [address] 06/21/2024 2:00 PM [employer] [place] Office Visit [facility] [place] [address] [place] [address], [address] [place] [phone] [place] [address] [place], [place] [address] Johnny Penn MD [address] [facility] [place] [address] 06/25/2024 8:30 AM [employer] [place] Office Visit [address] [place] [address] [phone] Valery Veronica PAUcheC [address] [place] [address] 11/28/2024 7:45 AM CDT Virtual Visit [facility] Gastroenterology Clinic [address] 4[address] [place] [phone] Meredith Carrera PA-C [address] [place] [address] documented as of this encounter Visit Diagnoses Not on filedocumented in this encounter Additional Health Concerns Infection Onset Date Last Indicated Resolved Time Rule Out COVID-19 08/30/2020 08/30/2020 08/30/2020 5:05 PM [employer] Rule Out COVID-19 09/24/2020 09/24/2020 09/24/2020 9:24 AM CDT Rule Out COVID-19 11/05/2020 11/05/2020 11/06/2020 1:09 PM CDT Rule Out COVID-19 05/11/2021 05/11/2021 05/13/2021 10:18 AM CDT Rule Out COVID-19 07/13/2021 07/13/2021 07/14/2021 3:04 PM [employer] Rule Out COVID-19 07/18/2021 07/18/2021 07/20/2021 1:56 PM [employer] COVID-19 07/18/2021 07/18/2021 08/08/2021 11:3 9 PM [employer] Rule Out COVID-19 12/18/2021 12/18/2021 12/19/2021 11:34 AM CDT Rule Out COVID-19 02/24/2022 02/24/2022 02/25/2022 1:08 PM CDT Rule Out COVID-19 04/26/2022 04/26/2022 04/26/2022 6:47 AM CDT Rule Out COVID-19 05/17/2022 05/17/2022 05/17/2022 10:20 PM [employer] Rule Out COVID-19 06/09/2022 06/09/2022 06/09/2022 9:35 AM [employer] [place] COVID-19 06/09/2022 06/09/2022 06/30/2022 11:4 1 PM [employer] Rule Out COVID-19 11/10/2022 11/10/202211/11/2022 12:17 PM CDT Rule Out COVID-19 03/07/2023 03/07/2023 03/07/2023 1:20 PM CDT Rule Out COVID-19 12/26/2023 12/26/2023 12/26/2023 9:50 AM CDT Rule Out COVID-19 04/09/2024 04/09/2024 04/10/2024 6:48 PM CDT Assessment Noted Time PHQ-9 Depression Total Score: 9 06/25/20 7:04 AM [employer] [place] documented as of this encounter Care Teams Boat Wrapper Relationship Specialty Start Date End Date Marija Edgar APRN ORTHOPEDIC PHYSICAL THERAPIST PCP - General Nurse Practitioner 04/30/20 04/14/23 Esha Grimm PA-C [address] [place] [phone] PCP - General Family Medicine 05/04/23 Lita Oseguera Personal Advocate & Liaison (PAL) 02/28/20 03/27/23 Chanelle Mccann APRN CNM [address] [facility] [address] [place] [address] Assigned OBGYN Provider 05/02/2005/09 Kyara De La Fuente, RN Specialty Staff Weapons Officer Neurology 06/04/20 03/05/21 Marija Edgar APRN ORTHOPEDIC PHYSICAL THERAPIST Assigned PCP 06/08/20 04/29/23 Mynor Broussard MD [address] [facility] 500 [place] [address] Assigned Surgical Provider 06/01/20 11/28/21 Keisha Dotson MD [address]09 [place] [address] Assigned Neuroscience Provider 06/04/20 04/01/23 Mary Mejia Financial Resource Worker 08/07/20 08/21/20 Stacey Briones, [facility] Lead Staff Weapons Officer Primary Care - CC 08/11/2012/30 Lesley Moody, [facility] Community Health Worker 08/11/2010/01 Mary Mejia Financial Resource Worker 09/02/20 10/06/20 Lita Oseguera Personal Advocate & Liaison (PAL) Family Medicine 09/10/20 09/21/20 Galo Burrell MD Assigned Heart and Vascular Provider 10/05/20 04/02/22 Cristina Wood Financial Resource Worker 10/07/20 10/14/20 Lesley Moody, [facility] Community Health Worker 10/23/2012/30 Meredith Bedoya Financial Resource Worker 10/23/20 11/23/20 Cristina Wood Financial Resource Worker 02/09/21 02/09/21 Diana Desir, [facility] [address] [place] [address] Pharmacist Pharmacist 04/17/21 Rain Galaviz PA-C [address] [place] [address] [place] [address] Physician Information Systems Auditor Dermatology 04/28/21 Summer Lara MD [address] [place] [address] Assigned OBGYN Provider 05/10/2105/23 Summer Lara MD [address] [place] [address] Assigned OBGYN Provider 05/31/21 2 Summer Lara MD [address] [place] [address] Assigned OBGYN Provider 05/24/2105/30 Tavia Wyatt MD [address] [place] [address] [facility] 07/14/21 Johnny Murillo MD [address] [facility] [address] [place] [address] Assigned Musculoskeletal Provider 08/30/21 03/17/22 Erica Farrell APRN ORTHOPEDIC PHYSICAL THERAPIST [address] [facility] [address] [place] [address] Nurse Practitioner Cardiovascular Disease 09/09/21 Teresita Bean [facility] [address] [place] [address] Pharmacist Pharmacist 09/24/21 09/29/21 Tavia Wyatt MD Assigned Surgical Provider 11/29/21 05/07/22 Diana Desir [facility] [address] [place] [address] Assigned MTM Pharmacist 01/02/22 Rich Barrett MD [address] [facility] [address] [place] [address] Physician Ophthalmology 01/21/22 Neil Kent MD [address] [place] [address] Dermatology 02/24/22 Roney Story DPM [address] [facility] [address] [place], [place] [address] Assigned Musculoskeletal Provider 03/20/22 08/13/22 Erica Farrell APRN ORTHOPEDIC PHYSICAL THERAPIST [address] [place] [address] Assigned Heart and Vascular Provider 04/03/22 04/16/22 Diana Desir, [facility] [address] [place] [address] Assigned MTM Pharmacist 04/07/22 [address] David [address] [facility] [place] [place] [address] Assigned Surgical Provider 05/08/22 10/08/22 Galo Burrell MD Assigned Heart and Vascular Provider 04/17/22 06/11/22 Livan Sharif MD [address] [place] [address] Cardiovascular Disease 05/14/22 Livan Sharif MD [address] [place] [address] Assigned Heart and Vascular Provider 06/12/22 07/23/22 Catherine Cm MD [address] [facility] [address] [place] [address] Cardiovascular Disease 07/21/22 Valery Veronica, PA-C [address] [place] [address] Physician Information Systems Auditor Dermatology 07/21/22 Catherine Cm MD [address] [facility] [address] [place] [address] Assigned Heart and Vascular Provider 07/24/22 11/05/22 Johnny Murillo MD [address] [place] [address] Assigned Musculoskeletal Provider 08/14/22 10/08/22 Brea Quinn APRN ORTHOPEDIC PHYSICAL THERAPIST [address] [place] [address] 192535 Nurse Practitioner Dermatology 09/21/22 Brea Quinn APRN ORTHOPEDIC PHYSICAL THERAPIST [address] [place] [address] [place] [address] Assigned Surgical Provider 10/09/22 05/01/24 [place] [address] ARZO [address] [place] [address] Assigned Musculoskeletal Provider 10/09/22 05/01/24 Livan Sharif MD [address] [place] [address] Assigned Heart and Vascular Provider 11/06/22 11/12/22 Catherine Cm MD [address] [place] [address] Assigned Heart and Vascular Provider 11/13/22 05/27/23 Sydnie Martinez RN Personal Advocate & Liaison (PAL) Family Medicine 03/28/23 07/31/23 Alfonso Renteria MD [address] [facility] 200 [place] [address] Assigned Neuroscience Provider 04/02/23 Cheng Todd PA-C [address] [place] [address] Assigned PCP 04/30/23 07/15/23 Radha Lomeli APRN ORTHOPEDIC PHYSICAL THERAPIST [address] [place] [address] Assigned Heart and Vascular Provider 05/28/23 Jelena David OD [address] [facility] [place] [place] [address] Ophthalmology 06/15/23 Pao Joseph, VJ Personal Advocate & Liaison (PAL) Nurse 08/01/23 11/07/23 Esha Grimm PA-C [address] [place] [phone] Assigned PCP 07/16/23 Valery Veronica PA-C [address] [place] [address] Physician Information Systems Auditor Dermatology 09/19/23 Rey Tay MD [address] [place] [address] MD Gastroenterology 09/20/23 Rocky Zepeda DO 500 [place] [address] Physician Gastroenterology 09/20/23 Philip Dumont MD [address] [place] [address] Physician Ophthalmology 09/22/23 Meredith Carrera PA-C 9 [place] [address] Assigned Gastroenterology Provider 11/01/23 Neil Kent MD [address] [address] Dermatology 11/02/23 [place] [address] [address] Neurological Surgery 12/26/23 Audrey Waite PA-C 500 [place] [address] Physician Information Systems Auditor Dermatology 02/28/24 Valery Veronica PA-C [id number] [address] [place] [address] Physician Information Systems Auditor Dermatology 04/10/24 documented as of this encounter
--- OUTSIDE RECORDS SUMMARY | 2024-05-27 08:54 | XMS_ITS | Encounter Summary ---
Author Organization [facility] Address [address] [place] [address] Care Team Providers Care Panelboard Tank Pumper Name Role Phone Lita Oseguera Unavailable Unavailable Marija Edgar APRN IRONWORKER HELPER SHOP Primary Care Provider + Chanelle Mccann SPOON MAKER CNM Unavailab le Kyara De La Fuente RN Unavailable [phone] Marija Edgar APRN IRONWORKER HELPER SHOP Unavailable [phone] Mynor Broussard MD Unavailable [phone] Keisha Dotson MD Unavailable Mary Mejia Unavailable Unavailable Stacey Briones SUPERVISOR [employer] Unavailable Lesley Moody CHW Unavailable [phone] Mary Mejia Unavailable Unavailable Lita Oseguera Unavailable Unavailable Galo Burrell MD Unavailable Unavailable Cristina Wood Unavailable Lesley Moody CHW Unavailable Meredith Bedoya Unavailable Unavailable Cristina Wood Unavailable Diana Desir [facility] Unavailable [phone] Ruhland, Rain Lena PA-C Unavailable Summer Lara MD Unavailable [phone] Summer Lara MD Unavailable [phone] Summer Lara MD Unavailable [phone] Tavia Wyatt MD Unavailable Unavailable SemJohnny mckeon MD Unavailable [phone] Erica Farrell APRN IRONWORKER HELPER SHOP Unavailable + Vikas Teresita Watson H Unavailable Tavia Wyatt MD Unavailable Unavailable Diana Desir [facility] Unavailable [phone] Rich Barrett MD Unavailable [phone] Neil Kent MD Unavailable Roney Story DPM Unavailable [phone] Erica Farrell APRN IRONWORKER HELPER SHOP Unavailable + Diana Desir [facility] Unavailable [phone] Jelena David Radha OD Unavailable Galo Burrell MD Unavailable Unavailable Livan Sharif MD Unavailable + Livan Sharif MD Unavailable + Catherine Cm MD Unavailable + Valery Veronica PA-C Unavailable [phone] Catherine Cm MD Unavailable + Johnny Murillo MD Unavailable +[phone] Brea Quinn APRN IRONWORKER HELPER SHOP Unavailable [phone] Brea Quinn SPOON MAKER IRONWORKER HELPER SHOP Unavailable [phone] Jose Francisco Johnson MD Unavailable Livan Sharif MD Unavailable + Catherine Cm MD Unavailable + Sydnie Martienz RN Unavailable Unavailable Alfonso Renteria MD Unavailable [phone] Esha Grimm PA-C Primary Care Provider [phone] Cheng Todd PA-C Unavailable Radha Lomeli APRN IRONWORKER HELPER SHOP Unavailable Frankie Jelena Templetone OD Unavailable [phone] Pao Joseph RN Unavailable Unavailable Esha Grimm PA-C Unavailable [phone] Valery Veronica PA-C Unavailable Rey Tay MD Unavailable Rocky Zepeda DO Unavailable Philip Dumont MD Unavailable [phone] Meredith Carrera PA-C Unavailable Neil Kent MD Unavailable Juan Pablo Emmanuel MD Unavailable Audrey Waite PA-C Unavailable [phone] JeremíasValery damon PA-C Unavailable Encounter Details Date Type Department Care Team (Latest Contact Info) Description 07/29/2020 MyC Medical Advice [address] [phone] Marija Edgar APRN IRONWORKER HELPER SHOP [address] [place] [phone] Palpitations (Primary Dx) Social History Tobacco [...] PM CDT Legal Sex Female 4:13 AM UPPER CUTTER Gender Identity Female 03/02/2021 5:45 PM CDT Sexual Orientation Straight 02/28/2020 12 :51 AM CDT COVID-19 Exposure Response Date Recorded In the last month, have you been in contact with someone who was confirmed or suspected to have Coronavirus / COVID-19? No / Unsure 07/30/2020 4:53 PM UPPER CUTTER documented as of this encounter Miscellaneous Notes * Telephone Encounter - Marija Edgar APRN CNP - 07/30/2020 10:21 AM UPPER CUTTER Responded via [employer] Resumehart Marija Edgar APRN IRONWORKER HELPER SHOP on 07/30/2020 at 10:28 AM R CUTTER documented in this encounter Plan of Treatment Upcoming Encounters Date Type Department Care Team (Late st Contact Info) Description 05/31/2024 8:40 AM UPPER CUTTER Therapy Visit [facility] [address] [place] [phone] Ingris Thompson, PT [facility] [address] [place] [address] 05/31/2024 3:30 PM UPPER CUTTER Office Visit [facility] [address] [phone] Audrey Díaz, Herminia Koo MD [address] [place] [phone] 06/04/2024 3:30 PM UPPER CUTTER [facility] [address] [place] [address] [address] [place] [phone] Jelena David, [address] [place] [address] ENMA KING [address] 06/11/2024 10:30 AM UPPER CUTTER Appointment [facility] [address] [place] [phone] Spec, Nurse Only Med 06/18/2024 2:50 PM UPPER CUTTER Therapy Visit [facility] [address] [place] [phone] Ingris Thompson, PT [facility] [address] [facility] [address] [place] [address] 06/21/2024 2:00 PM UPPER CUTTER Office Visit [facility] [address] [place] [address], [address] [place] [phone] [place] [address] [place], [place] [address] Johnny Penn MD [address] [place] [address] 06/25/2024 8:30 AM UPPER CUTTER Office Visit [address] [phone] Valery Veronica PA-C [address] [place] [address] 11/28/2024 7:45 AM CDT Virtual Visit [facility] [address] [phone] Meredith Carrera PA-C [address] [place] [address] [phone] documented as of this encounter Visit Diagnoses Diagnosis Palpitations- Primary documented in this encounter Additional Health Concerns Infection Onset Date Last Indicated Resolved Time Rule Out COVID-19 07/30/2020 07/30/2020 07/30/2020 7:11 PM UPPER CUTTER Rule Out COVID-19 08/30/2020 08/30/2020 08/30/2020 5:05 PM UPPER CUTTER Rule Out COVID-19 09/24/2020 09/24/2020 09/24/2020 9:24 AM CDT Rule Out COVID-19 11/05/2020 11/05/2020 11/06/2020 1:09 PM CDT Rule Out COVID-19 05/11/2021 05/11/2021 05/13/2021 10:18 AM CDT Rule Out COVID-19 07/13/2021 07/13/2021 07/14/2021 3:04 PM UPPER CUTTER Rule Out COVID-19 07/18/2021 07/18/2021 07/20/2021 1:56 PM UPPER CUTTER COVID-19 07/18/2021 07/18/2021 08/08/2021 11:3 9 PM UPPER CUTTER Rule Out COVID-19 12/18/2021 12/18/2021 12/19/2021 11:34 AM CDT Rule Out COVID-19 02/24/2022 02/24/2022 02/25/2022 1:08 PM CDT Rule Out COVID-19 04/26/2022 04/26/2022 04/26/2022 6:47 AM CDT Rule Out COVID-19 05/17/2022 05/17/2022 05/17/2022 10:20 PM UPPER CUTTER Rule Out COVID-19 06/09/2022 06/09/2022 06/09/2022 9:35 AM UPPER CUTTER COVID-19 06/09/2022 06/09/2022 06/30/2022 11:4 1 PM UPPER CUTTER Rule Out COVID-19 11/10/2022 11/10/2022 11/11/2022 12:17 PM CDT Rule Out COVID-19 03/07/2023 03/07/2023 03/07/2023 1:20 PM CDT Rule Out COVID-19 12/26/2023 12/26/2023 12/26/2023 9:50 AM CDT Rule Out COVID-19 04/09/2024 04/09/2024 04/10/2024 6:48 PM CDT Assessment Noted Time PHQ-9 Depression Total Score: 9 06/25/20 20 7:04 AM UPPER CUTTER documented as of this encounter Care Teams Panelboard Tank Pumper Relationship Specialty Start Date End Date Marija Edgar APRN IRONWORKER HELPER SHOP PCP - General Nurse Practitioner 04/30/20 04/14/23 Esha Grimm PA-C [address] [place] [phone] PCP - General Family Medicine 05/04/23 Lita Oseguera Personal Advocate & Liaison (PAL) 02/28/20 03/27/23 Chanelle Mccann APRN CNM [id number] [place] [address] [address] [place] [address] Assigned OBGYN Provider 05/02/2005/09 Kyara De La Fuente, RN Specialty Shiatsu Therapist Neurology 06/04/20 03/05/21 Marija Edgar APRN IRONWORKER HELPER SHOP Assigned PCP 06/08/20 04/29/23 Mynor Broussard MD [address] [facility] [address] [place], [place] [address] Assigned Surgical Provider 06/01/20 11/28/21 Keisha Dotson MD [address] [place], [place] [phone] Assigned Neuroscience Provider 06/04/20 04/01/23 NikiaChico aguirrera Financial Resource Worker 08/07/20 08/21/20 Stacey Briones, [facility] Lead Shiatsu Therapist Primary Care - CC 08/11/2012/30 Lesley Moody, [facility] Community Health Worker 08/11/2010/01 Mary Mejia Financial Resource Worker 09/02/20 10/06/20 Lita Oseguera Personal Advocate & Liaison (PAL) Family Medicine 09/10/20 09/21/20 Galo Burrell MD Assigned Heart and Vascular Provider 10/05/20 04/02/22 Cristina Wood Financial Resource Worker 10/07/20 10/14/20 Lesley Moody, [facility] Community Health Worker 10/23/2012/30 Meredith Bedoya Financial Resource Worker 10/23/20 11/23/20 Cristina Wood Financial Resource Worker 02/09/21 02/09/21 Diana Desir, [facility] [address] [place], [place] [phone] Pharmacist Pharmacist 04/17/21 Rain Galaviz PA-C [address] [place] [address] [address] [place] [place], [place] [phone] [facility] 04/28/21 Summer Lara MD [address] [place] [address] Assigned OBGYN Provider 05/10/2105/23 Summer Lara MD [address] [place] [address] Assigned OBGYN Provider 05/31/21 2 Summer Lara MD [address] [place] [address] Assigned OBGYN Provider 05/24/2105/30 Tavia Wyatt MD [address] [place] [address] Dermatology 07/14/21 Johnny Murillo MD [address] [place] [address] Assigned Musculoskeletal Provider 08/30/21 03/17/22 Erica Farrell APRN IRONWORKER HELPER SHOP [address] [facility] [address] [place] [address] Nurse Practitioner Cardiovascular Disease 09/09/21 Teresita Bean, [facility] [address] [facility] [address] Pharmacist Pharmacist 09/24/21 09/29/21 Tavia Wyatt MD Assigned Surgical Provider 11/29/21 05/07/22 [facility] [address] [place] [address] Assigned MTM Pharmacist 01/02/22 Rich Barrett MD [address] [facility] [address] [place] [address] Physician Ophthalmology 01/21/22 Neil Kent MD [address] [place] [address] Dermatology 02/24/22 Roney Story DPM [address] [facility] [address] [place] [address] Assigned Musculoskeletal Provider 03/20/22 08/13/22 Erica Farrell APRN [employer]ONWORKER HELPER SHOP [address] [place] [address] Assigned Heart and Vascular Provider 04/03/22 04/16/22 Diana Desir, [facility] [address] [place], [place] [address] Assigned MTM Pharmacist 04/07/22 Jelena David OD [address] [place] [address] Assigned Surgical Provider 05/08/22 10/08/22 Galo Burrell MD Assigned Heart and Vascular Provider 04/17/22 06/11/22 Livan Sharif MD [address] [place] [address] Cardiovascular Disease 05/14/22 Livan Sharif MD [address] [place] [address] Assigned Heart and Vascular Provider 06/12/22 07/23/22 Catherine Cm MD [address] [place] [address] Cardiovascular Disease 07/21/22 Valery Veronica, PAUcheC [address] [place] [address] [facility] 07/21/22 Catherine Cm MD [address] [place] [address] Assigned Heart and Vascular Provider 07/24/22 11/05/22 Johnny Murillo MD [address] [place] [address] Assigned Musculoskeletal Provider 08/14/22 10/08/22 Brea Quinn APRN IRONWORKER HELPER SHOP [address] [place] [address] [id number] Nurse Practitioner Dermatology 09/21/22 Brea Quinn APRN IRONWORKER HELPER SHOP [address] [place] [address] [place] [address] Assigned Surgical Provider 10/09/22 05/01/24 [place] [address] [place] [address] Assigned Musculoskeletal Provider 10/09/22 05/01/24 Livan Sharif MD [address] [place] [address] Assigned Heart and Vascular Provider 11/06/22 11/12/22 Catherine Cm MD [address] [place] [address] Assigned Heart and Vascular Provider 11/13/22 05/27/23 Sydnie Martinez RN Personal Advocate & Liaison (PAL) Family Medicine 03/28/23 07/31/23 Alfonso Renteria MD [address] [facility] [address] [place] [address] Assigned Neuroscience Provider 04/02/23 Cheng Todd PA-C [address] [place] [address] [phone] Assigned PCP 04/30/23 07/15/23 Radha Lomeli, ARLENE IRONWORKER HELPER SHOP [address] [place] [address] Assigned Heart and Vascular Provider 05/28/23 Jelena David OD [address] [place] [address] Ophthalmology 06/15/23 Pao Joseph, VJ Personal Advocate & Liaison (PAL) Nurse 08/01/23 11/07/23 Esha Grimm PA-C [address] [place] [phone] Assigned PCP 07/16/23 Valery Veronica PA-C [address] [place], [place] [address] [facility] 09/19/23 Rey Tay MD [address] [place] [address] Gastroenterology 09/20/23 Rocky Zepeda DO [address] [place] [address] Physician Gastroenterology 09/20/23 Philip Dumont MD [address] [place] [address] Physician Ophthalmology 09/22/23 Meredith Carrera PA-C [address] [place] [address] Assigned Gastroenterology Provider 11/01/23 Neil Kent MD [address] [address] Dermatology 11/02/23 [place] [address] [address] Neurological Surgery 12/26/23 Audrey Waite PA-C [address] [place] [address] [facility] 02/28/24 Valery Veronica PA-C 163244 [address], [place] [address] [facility] 04/10/24 documented as of this encounter
--- OUTSIDE RECORDS SUMMARY | 2024-05-27 08:54 | XMS_ITS | Encounter Summary ---
Author Organization [facility] Address [address] [place] [address] Care Team Providers Care Yarn Spinner Name Role Phone Lita Oseguera Unavailable Unavailable Marija Edgar APRN DIGITAL PROOFING AND PLATEMAKER Primary Care Provider + Chanelle Mccann SOIL ANALYST CNM Unavailab le Kyara De La Fuente RN Unavailable [phone] Marija Edgar APRN DIGITAL PROOFING AND PLATEMAKER Unavailable Mynor Broussard MD Unavailable [phone] Keisha Dotson MD Unavailable Mary Mejia Unavailable Unavailable Stacey Briones TOWER SWITCH OPERATOR Unavailable Lesley Moody CHW Unavailable Mary Mejia Unavailable Unavailable Lita Oseguera Unavailable Unavailable Galo Burrell MD Unavailable Unavailable Cristina Wood Unavailable Lesley Moody CHW Unavailable Meredith Bedoya Unavailable Unavailable Cristina Wood Unavailable Diana Desir [facility] Unavailable Ruhland, Rain Lena PA-C Unavailable Summer Lara MD Unavailable [phone] Summer Lara MD Unavailable [phone] Summer Lara MD Unavailable +[phone] Tavia Wyatt MD Unavailable Unavailable SemJohnny mckeon MD Unavailable [phone] Erica Farrell APRN DIGITAL PROOFING AND PLATEMAKER Unavailable + Vikas Teresita Watson H Unavailable Tavia Wyatt MD Unavailable Unavailable Diana Desir [facility] Unavailable [phone] Rich Barrett MD Unavailable [phone] Neil Kent MD Unavailable Roney Story DPM Unavailable [phone] Erica Farrell APRN DIGITAL PROOFING AND PLATEMAKER Unavailable + Diana Desir [facility] Unavailable [phone] Jelena David Radha OD Unavailable Galo Burrell MD Unavailable Unavailable Livan Sharif MD Unavailable + Livan Sharif MD Unavailable + Catherine Cm MD Unavailable + Valery Veronica PA-C Unavailable [phone] Catherine Cm MD Unavailable + Johnny Murillo MD Unavailable +[phone] Brea Quinn APRN DIGITAL PROOFING AND PLATEMAKER Unavailable [phone] Brea Quinn SOIL ANALYST DIGITAL PROOFING AND PLATEMAKER Unavailable [phone] Jose Francisco Johnson MD Unavailable Livan Sharif MD Unavailable + Catherine Cm MD Unavailable + Sydnie Martinez RN Unavailable Unavailable Alfonso Renteria MD Unavailable [phone] Esha Grimm PA-C Primary Care Provider Cheng Todd PA-C Unavailable Radha Lomeli APRN DIGITAL PROOFING AND PLATEMAKER Unavailable FrankieJelenae OD Unavailable Pao Joseph RN Unavailable Unavailable Esha Grimm PA-C Unavailable [phone] Valery Veronica PA-C Unavailable Rey Tay MD Unavailable Rocky Zepeda DO Unavailable Philip Dumont MD Unavailable [phone] Meredith Carrera PA-C Unavailable Neil Kent MD Unavailable Juan Pablo Emmanuel MD Unavailable [phone] Audrey Waite PA-C Unavailable [phone] JeremíasValery damon PA-C Unavailable Encounter Details Date Type Department Care Team (Late st Contact Info) Description 07/29/2020 MyC Medical Advice [facility] Ep[facility]psy [facility] [address], [address] [place] [address] Keisha Dotson MD [address] [place] [address] Social History Tobacco Use Types [...] PM CDT Legal Sex Female 4:13 AM SALES AND MARKETING VICE PRESIDENT Gender Identity Female 03/02/2021 5:45 PM CDT Sexual Orientation Straight 02/28/2020 12 :51 AM CDT COVID-19 Exposure Response Date Recorded In the last month, have you been in contact with someone who was confirmed or suspected to have Coronavirus / COVID-19? No / Unsure 07/30/2020 4:53 PM SALES AND MARKETING VICE PRESIDENT documented as of this encounter Plan of Treatment Upcoming Encounters Date Type Department Care Team (Late st Contact Info) Description 05/31/2024 8:40 AM SALES AND MARKETING VICE PRESIDENT Therapy Visit [address] [phone] Ingris Thompson, PT [facility] [address] [place] [address] [phone] 05/31/2024 3:30 PM SALES AND MARKETING VICE PRESIDENT Office Visit [facility] [address] [phone] Audrey Díaz, Herminia Koo MD [address] [place] [address] 06/04/2024 3:30 PM SALES AND MARKETING VICE PRESIDENT Office Visit [facility] [place] [address] [place] [address] [address] [place] [phone] Jelena David, SONJA [address] [place] [address] ENMA KING [address] 06/11/2024 10:30 AM SALES AND MARKETING VICE PRESIDENT Appointment [facility] Respiratory Therapy [address] [place] [phone] Spec, Nurse Only Med 06/18/2024 2:50 PM SALES AND MARKETING VICE PRESIDENT Therapy Visit [address] [place] [phone] Ingris Thompson, PT [facility] [address] [facility] [address] [place], [place] [address] 06/21/2024 2:00 PM SALES AND MARKETING VICE PRESIDENT Office Visit [facility] [address] [facility], [address] [place] [phone] [place] [address] [place], [place] 0988[address] Johnny Penn MD [address] [facility] [address], [place] 78[address] 06/25/2024 8:30 AM SALES AND MARKETING VICE PRESIDENT Office Visit [address] [phone] Valery Veronica PA-C [address] [place] [address] [phone] 11/28/2024 7:45 AM CDT Virtual Visit [facility] [address] 4th [place] [phone] Meredith Carrera PA-C [address] [place] [address] 389695 documented as of this encounter Visit Diagnoses Not on filedocumented in this encounter Additional Health Concerns Infection Onset Date Last Indicated Resolved Time Rule Out COVID-19 07/30/2020 07/30/2020 07/30/2020 7:11 PM SALES AND MARKETING VICE PRESIDENT Rule Out COVID-19 08/30/2020 08/30/2020 08/30/2020 5:05 PM SALES AND MARKETING VICE PRESIDENT Rule Out COVID-19 09/24/2020 09/24/2020 09/24/2020 9:24 AM CDT Rule Out COVID-19 11/05/2020 11/05/2020 11/06/2020 1:09 PM CDT Rule Out COVID-19 05/11/2021 05/11/2021 05/13/2021 10:18 AM CDT Rule Out COVID-19 07/13/2021 07/13/2021 07/14/2021 3:04 PM SALES AND MARKETING VICE PRESIDENT Rule Out COVID-19 07/18/2021 07/18/2021 07/20/2021 1:56 PM SALES AND MARKETING VICE PRESIDENT COVID-19 07/18/2021 07/18/2021 08/08/2021 11:3 9 PM SALES AND MARKETING VICE PRESIDENT Rule Out COVID-19 12/18/2021 12/18/2021 12/19/2021 11:34 AM CDT Rule Out COVID-19 02/24/2022 02/24/2022 02/25/2022 1:08 PM CDT Rule Out COVID-19 04/26/2022 04/26/2022 04/26/2022 6:47 AM CDT Rule Out COVID-19 05/17/2022 05/17/2022 05/17/2022 10:20 PM SALES AND MARKETING VICE PRESIDENT Rule Out COVID-19 06/09/2022 06/09/2022 06/09/2022 9:35 AM SALES AND MARKETING VICE PRESIDENT COVID-19 06/09/2022 06/09/2022 06/30/2022 11:4 1 PM SALES AND MARKETING VICE PRESIDENT Rule Out COVID-19 11/10/2022 11/10/2022 11/11/2022 12:17 PM CDT Rule Out COVID-19 03/07/2023 03/07/2023 03/07/2023 1:20 PM CDT Rule Out COVID-19 12/26/2023 12/26/2023 12/26/2023 9:50 AM CDT Rule Out COVID-19 04/09/2024 04/09/2024 04/10/2024 6:48 PM CDT Assessment Noted Time PHQ-9 Depression Total Score: 9 06/25/ 20 7:04 AM SALES AND MARKETING VICE PRESIDENT documented as of this encounter Care Teams Yarn Spinner Relationship Specialty Start Date End Date Marija Edgar APRN DIGITAL PROOFING AND PLATEMAKER PCP - General Nurse Practitioner 04/30/20 04/14/23 Esha Grimm PA-C [address] [place] [phone] PCP - General Family Medicine 05/04/23 Lita Oseguera Personal Advocate & Liaison (PAL) 02/28/20 03/27/23 Chanelle Mccann APRN CNM [address] [place] [address] [address] [place], [place] 357867 Assigned OBGYN Provider 05/02/2005/09 Kyara De La Fuente, VJ Specialty Applications Specialist Neurology 06/04/20 03/05/21 Marija Edgar APRN DIGITAL PROOFING AND PLATEMAKER Assigned PCP 06/08/20 04/29/23 Mynor Broussard MD [address] [facility] 500 [place] [address] Assigned Surgical Provider 06/01/20 11/28/21 Keisha Dotson MD [address] [place] [address] Assigned Neuroscience Provider 06/04/20 04/01/23 Mary Mejia Financial Resource Worker 08/07/20 08/21/20 Stacey Briones, TOWER SWITCH OPERATOR Lead Applications Specialist Primary Care - CC 08/11/2012/30 Lesley Moody, W Community Health Worker 08/11/2010/01 Nikiatimothy Mary Financial Resource Worker 09/02/20 10/06/20 Lita Oseguera Personal Advocate & Liaison (PAL) Family Medicine 09/10/20 09/21/20 Galo Burrell MD Assigned Heart and Vascular Provider 10/05/20 04/02/22 Cristina Wood Financial Resource Worker 10/07/20 10/14/20 Lesley Moody, [facility] Community Health Worker 10/23/2012/30 Meredith Bedoya Financial Resource Worker 10/23/20 11/23/20 Cristina Wood Financial Resource Worker 02/09/21 02/09/21 Diana Desir, [facility] [address] [place], [place] [address] Pharmacist Pharmacist 04/17/21 Rain Galaviz PA-C [address] [place] [address] [address] [place] [place], [place] [phone] Physician Roller Printer Dermatology 04/28/21 Summer Lara MD [address] [place] [address] [phone] Assigned OBGYN Provider 05/10/2105/23 Summer Lara MD [address] [place] [address] [phone] Assigned OBGYN Provider 05/31/21 2 Summer Lara MD [address] [place] [address] [phone] Assigned OBGYN Provider 05/24/2105/30 Tavia Wyatt MD [address] [place] [address] Dermatology 07/14/21 Johnny Murillo MD [address] [place] [address] Assigned Musculoskeletal Provider 08/30/21 03/17/22 Erica Farrell APRN DIGITAL PROOFING AND PLATEMAKER [address] [place] [address] Nurse Practitioner Cardiovascular Disease 09/09/21 Teresita Bean, [facility] [address] [place], [place] [phone] Pharmacist Pharmacist 09/24/21 09/29/21 Tavia Wyatt MD Assigned Surgical Provider 11/29/21 05/07/22 [facility] [address] [place] [address] Assigned MTM Pharmacist 01/02/22 Rich Barrett MD [address] [facility] [address] [place], [place] [phone] Physician Ophthalmology 01/21/22 Neil Kent MD [address] [place], [place] [phone] Dermatology 02/24/22 Roney Story DPM [address] [facility] [address] [place], [place] 952587 Assigned Musculoskeletal Provider 03/20/22 08/13/22 Erica Farrell APRN DIGITAL PROOFING AND PLATEMAKER [address] [place] [address] Assigned Heart and Vascular Provider 04/03/22 04/16/22 [facility] 3033 [place] [address] Assigned MTM Pharmacist 04/07/22 Jelena David OD [address] [facility] [address] Assigned Surgical Provider 05/08/22 10/08/22 Galo Burrell MD Assigned Heart and Vascular Provider 04/17/22 06/11/22 Livan Sharif MD [address] [place] [address] Cardiovascular Disease 05/14/22 Livan Sharif MD [address] [place] [address] Assigned Heart and Vascular Provider 06/12/22 07/23/22 Catherine Cm MD [address] [place] [address] Cardiovascular Disease 07/21/22 Valery Veronica PAUcheC [address]09 [place] [address] Physician Roller Printer Dermatology 07/21/22 Catherine Cm MD [address] [place] [address] [place] [address] Assigned Heart and Vascular Provider 07/24/22 11/05/22 Johnny Murillo MD [address] [place] [address] 939704 Assigned Musculoskeletal Provider 08/14/22 10/08/22 Brea Quinn APRN DIGITAL PROOFING AND PLATEMAKER [address] [place] [address] 550655 Nurse Practitioner Dermatology 09/21/22 Brea Quinn APRN DIGITAL PROOFING AND PLATEMAKER [address] [place] [address] [place] [address] Assigned Surgical Provider 10/09/22 05/01/24 [place] [address] [place] [address] Assigned Musculoskeletal Provider 10/09/22 05/01/24 Livan Sharif MD [address] [place] [address] [place] [address] Assigned Heart and Vascular Provider 11/06/22 11/12/22 Catherine Cm MD [address] [facility] [place] [address] Assigned Heart and Vascular Provider 11/13/22 05/27/23 Sydnie Martinez RN Personal Advocate & Liaison (PAL) Family Medicine 03/28/23 07/31/23 Alfonso Renteria MD [address] [facility] [address] [place] [address] Assigned Neuroscience Provider 04/02/23 Cheng Todd PA-C [address] [place] [address] Assigned PCP 04/30/23 07/15/23 Radha Lomeli, ARLENE DIGITAL PROOFING AND PLATEMAKER [address] [facility] [address] [place], [place] 54[address] Assigned Heart and Vascular Provider 05/28/23 Jelena David OD [address] [facility] [address] [place] [id number] Ophthalmology 06/15/23 Pao Joseph, VJ Personal Advocate & Liaison (PAL) Nurse 08/01/23 11/07/23 Esha Grimm PA-C [address] [place] [address] Assigned PCP 07/16/23 Valery Veronica PA-C [address] [place] [address] Physician Roller Printer Dermatology 09/19/23 Rey Tay MD [address] [place] [address]955 Gastroenterology 09/20/23 Rocky Zepeda DO [address] [place] [address] 965855 Physician Gastroenterology 09/20/23 Philip Dumont MD 516 [place] [address] Physician Ophthalmology 09/22/23 Mreedith Carrera PA-C [address] [place] [address] 211735 Assigned Gastroenterology Provider 11/01/23 Neil Kent MD [address] 156340 MD Dermatology 11/02/23 [place] [address] [place] [address] 269327 Neurological Surgery 12/26/23 Audrey Waite PA-C [address] [place], [place] [address] Physician Roller Printer Dermatology 02/28/24 Valery Veronica PA-C [address] [place] [address] Physician Roller Printer Dermatology 04/10/24 documented as of this encounter
--- OUTSIDE RECORDS SUMMARY | 2024-05-27 08:54 | XMS_ITS | Encounter Summary ---
Author Organization [facility] Address [address] [place] [address] Care Team Providers Care Dairy Frozen Manager Name Role Phone Lita Oseguera Unavailable Unavailable Marija Edgar APRN LATHE PULLER Primary Care Provider + Chanelle Mccann APRN CNM Unavailab le Kyara De La Fuente RN Unavailable [phone] Marija Edgar APRN LATHE PULLER Unavailable Mynor Broussard MD Unavailable [phone] Keisha Dotson MD Unavailable Stacey Briones CRM SPECIALIST Unavailable Lesley Moody CHW Unavailable [phone] Mary Mejia Unavailable Unavailable Lita Oseguera Unavailable Unavailable Galo Burrell MD Unavailable Unavailable Cristina Wood Unavailable Lesley Moody CHW Unavailable [phone] Meredith Bedoya Unavailable Unavailable Cristina Wood Unavailable Diana Desir [facility] Unavailable [phone] Rain Galaviz PA-C Unavailable [phone] Summer Lara MD Unavailable [phone] Summer Lara MD Unavailable [phone] Summer Lara MD Unavailable + [phone] Tavia Wyatt MD Unavailable Unavailable SemJohnny mckeon MD Unavailable +1- Erica Farrell APRN LATHE PULLER Unavailable + Vikas Teresitafazal Watson H Unavailable Tavia Wyatt MD Unavailable Unavailable Diana Desir [facility] Unavailable [phone] Rich Barrett MD Unavailable [phone] Neil Kent MD Unavailable Roney Story DPM Unavailable [phone] Erica Farrell PRODUCTION POSTING CLERK LATHE PULLER Unavailable + Diana Desir [facility] Unavailable [phone] Tommy Davidmao Templetone OD Unavailable [phone] Galo Burrell MD Unavailable Unavailable Livan Sharif MD Unavailable + Livan Sharif MD Unavailable + Catherine Cm MD Unavailable + Valery Veronica PA-C Unavailable [phone] Catherine Cm MD Unavailable + Johnny Murillo MD Unavailable +1- Brea Quinn APRN LATHE PULLER Unavailable [phone] Brea Quinn PRODUCTION POSTING CLERK LATHE PULLER Unavailable [phone] Jose Francisco Johnson MD Unavailable Livan Sharif MD Unavailable + Catherine Cm MD Unavailable + Sydnie Martinez RN Unavailable Unavailable Alfonso Renteria MD Unavailable [phone] Esha Grimm PA-C Primary Care Provider Cheng Todd PA-C Unavailable Radha Lomeli APRN LATHE PULLER Unavailable FrankieJelena SONJA Unavailable [phone] Pao Joseph RN Unavailable Unavailable Esha Grimm-C Unavailable [phone] Valery Veronica PA-C Unavailable Rey Tay MD Unavailable Rocky Zepeda DO Unavailable Philip Dumont MD Unavailable Meredith Carrera PA-C Unavailable Neil Kent MD Unavailable Juan Pablo Emmanuel MD Unavailable Audrey Waite PA-C Unavailable JeremíasValery damon PA-C Unavailable [phone] Encounter Details Date Type Department Care Team (Late st Contact Info) Description 08/24/2020 My[facility] Medical Advice [address] [phone] Marija Edgar APRN LATHE PULLER [address] [place] [address] Social History Tobacco Use Types [...] week 08/07/2020 How often do you attend [facility]? More than 4 times [...] Answer Date Recorded PHQ-2 Score 0 08/12/2020 [facility] - Occupational Stress Questionnaire [...] slept in a intermediate (including now)? No 08/11/2020 Education Answer Date Recorded What is the highest level of school you have completed or the highest degree you have received? 12th grade 08/07/2020 Comments Yes Sex and Gender Information Value Date Recorded Sex Assigned at Female 03/02/2021 5:45 PM CDT Legal Sex Female 4:13 AM SKULL GRINDER Gender Identity Female 03/02/2021 5:45 PM CDT Sexual Orientation Straight 02/28/2020 12 :51 AM CDT COVID-19 Exposure Response Date Recorded In the last month, have you been in contact with someone who was confirmed or suspected to have Coronavirus / COVID-19? No / Unsure 08/20/2020 12:47 PM SKULL GRINDER documented as of this encounter Miscellaneous Notes * Telephone Encounter - Marija Edgar APRN CNP - 08/25/2020 11:47 AM SKULL GRINDER Replied via MyChart Marija Edgar APRN CNP on 08/25/2020 at 11:51 AM L GRINDER documented in this encounter Plan of Treatment Upcoming Encounters Date Type Department Care Team (Late st Contact Info) Description 05/31/2024 8:40 AM SKULL GRINDER Therapy Visit [address] [phone] Ingris Thompson, PT [facility] [address] [place] [address] 05/31/2024 3:30 PM SKULL GRINDER Office Visit [address] [phone] Audrey Díaz, Herminia Koo MD [address] [place] [address] 06/04/2024 3:30 PM SKULL GRINDER Office Visit [address] [place] [phone] Jelena David, [address] [place] [address] 06/11/2024 10:30 AM SKULL GRINDER [facility]oint[address] [facility] Respiratory Therapy [address] [place] [phone] Spec, Nurse Only Med 06/18/2024 2:50 PM SKULL GRINDER Therapy Visit [address] [phone] Ingris Thompson, PT [address] [address] 06/21/2024 2:00 PM SKULL GRINDER Office Visit [facility] Neurology [facility] [address] [facility], [address] [place] [phone] [place] [address] [place] [address] Johnny Penn MD [address] [place] [address] 06/25/2024 8:30 AM SKULL GRINDER Office Visit [address] [phone] Valery Veronica PA-C [address] [place] [address] 11/28/2024 7:45 AM CDT Virtual Visit [facility] Gastro[facility]ology [facility] [address] [phone] Meredith Carrera PA-C [address] [place] [address] documented as of this encounter Visit Diagnoses Not on filedocumented in this encounter Additional Health Concerns Infection Onset Date Last Indicated Resolved Time Rule Out COVID-19 08/30/2020 08/30/2020 08/30/2020 5:05 PM SKULL GRINDER Rule Out COVID-19 09/24/2020 09/24/2020 09/24/2020 9:24 AM CDT Rule Out COVID-19 11/05/2020 11/05/2020 11/06/2020 1:09 PM CDT Rule Out COVID-19 05/11/2021 05/11/2021 05/13/2021 10:18 AM CDT Rule Out COVID-19 07/13/2021 07/13/2021 07/14/2021 3:04 PM SKULL GRINDER Rule Out COVID-19 07/18/2021 07/18/2021 07/20/2021 1:56 PM SKULL GRINDER COVID-19 07/18/2021 07/18/2021 08/08/2021 11:3 9 PM SKULL GRINDER Rule Out COVID-19 12/18/2021 12/18/2021 12/19/2021 11:34 AM CDT Rule Out COVID-19 02/24/2022 02/24/2022 02/25/2022 1:08 PM CDT Rule Out COVID-19 04/26/2022 04/26/2022 04/26/2022 6:47 AM CDT Rule Out COVID-19 05/17/2022 05/17/2022 05/17/2022 10:20 PM SKULL GRINDER Rule Out COVID-19 06/09/2022 06/09/2022 06/09/2022 9:35 AM SKULL GRINDER COVID-19 06/09/2022 06/09/2022 06/30/2022 11:4 1 PM SKULL GRINDER Rule Out COVID-19 11/10/2022 11/10/2022 11/11/2022 12:17 PM CDT Rule Out COVID-19 03/07/2023 03/07/2023 03/07/2023 1:20 PM CDT Rule Out COVID-19 12/26/2023 12/26/2023 12/26/2023 9:50 AM CDT Rule Out COVID-19 04/09/2024 04/09/2024 04/10/2024 6:48 PM CDT Assessment Noted Time PHQ-9 Depression Total Score: 9 06/25/20 20 7:04 AM SKULL GRINDER documented as of this encounter Care Teams Dairy Frozen Manager Relationship Specialty Start Date End Date Marija Edgar APRN CNP PCP - General Nurse Practitioner 04/30/20 04/14/23 Esha Grimm PA-C [address] [place] [phone] PCP - General Family Medicine 05/04/23 Lita Oseguera Personal Advocate & Liaison (PAL) 02/28/20 03/27/23 Chanelle Mccann APRN CNM [address] [facility] [address] [place], [place] [phone] Assigned OBGYN Provider 05/02/2005/09 Kyara De La Fuente, RN Specialty New Car Make Ready Worker Neurology 06/04/20 03/05/21 Marija Edagr APRN LATHE PULLER Assigned PCP 06/08/20 04/29/23 Mynor Broussard MD [address] [facility] [address] [place] [address] Assigned Surgical Provider 06/01/20 11/28/21 Keisha Dotson MD [address] [place], [place] [address] Assigned Neuroscience Provider 06/04/20 04/01/23 Stacey Briones, [facility] Lead New Car Make Ready Worker Primary Care - CC 08/11/2012/30 Lesley Moody, [facility] Community Health Worker 08/11/2010/01 Mary Mejia Financial Resource Worker 09/02/20 10/06/20 Lita Oseguera Personal Advocate & Liaison (PAL) Family Medicine 09/10/20 09/21/20 Galo Burrell MD Assigned Heart and Vascular Provider 10/05/20 04/02/22 Cristina Wood Financial Resource Worker 10/07/20 10/14/20 Lesley Moody, [facility] Community Health Worker 10/23/2012/30 Aureliano Meredith K Financial Resource Worker 10/23/20 11/23/20 Cristina Wood Financial Resource Worker 02/09/21 02/09/21 Diana Desir, [facility] [address] [place] [address] Pharmacist Pharmacist 04/17/21 Rain Galaviz PA-C [address] [place], [place] [phone] Physician Rrt Dermatology 04/28/21 Summer Lara MD [address] [place], [place] [address] Assigned OBGYN Provider 05/10/2105/23 Summer Lara MD [address] [place], [place] [phone] Assigned OBGYN Provider 05/31/21 2 Summer Lara MD [address] [place], [place] [address] Assigned OBGYN Provider 05/24/2105/30 Tavia Wyatt MD [address] [place] [address] Dermatology 07/14/21 Johnny Murillo MD [facility] [address] Assigned Musculoskeletal Provider 08/30/21 03/17/22 Erica Farrell APRN LATHE PULLER [address] [facility] [address] [place] [address] Nurse Practitioner Cardiovascular Disease 09/09/21 Teresita Bean, [facility] [address] [facility] [place] [address] Pharmacist Pharmacist 09/24/21 09/29/21 Tavia Wyatt MD Assigned Surgical Provider 11/29/21 05/07/22 Diana Desir, [facility] [address] [place] [address] Assigned MTM Pharmacist 01/02/22 Rich Barrett MD [address] [address] Physician Ophthalmology 01/21/22 Neil Kent MD [address] [place] [address] Dermatology 02/24/22 Roney Story DPM [address] [facility] [address] [place], [place] [address] Assigned Musculoskeletal Provider 03/20/22 08/13/22 Erica Farrell APRN LATHE PULLER [address] [place] [address] Assigned Heart and Vascular Provider 04/03/22 04/16/22 Diana Desir, [facility] [address] [place], [place] [address] Assigned MTM Pharmacist 04/07/22 Frankie Jelenamao Garcia [place] [address] [facility] [place] [address] Assigned Surgical Provider 05/08/22 10/08/22 Galo Burrell MD Assigned Heart and Vascular Provider 04/17/22 06/11/22 Livan Sharif MD [address] [place], [place] [address] Cardiovascular Disease 05/14/22 Livan Sharif MD [address] [place], [place] [address] Assigned Heart and Vascular Provider 06/12/22 07/23/22 Catherine Cm MD [address] [place], [place] [address] Cardiovascular Disease 07/21/22 Valery Veronica, PAUcheC [address] [place], [place] [address] Physician Rrt Dermatology 07/21/22 Catherine Cm MD [address] [place], [place] [address] Assigned Heart and Vascular Provider 07/24/22 11/05/22 Johnny Murillo MD [address] [place] [address] Assigned Musculoskeletal Provider 08/14/22 10/08/22 Brea Quinn APRN LATHE PULLER [address] [facility] [place] [address] Nurse Practitioner Dermatology 09/21/22 Brea Quinn APRN LATHE PULLER [address] [facility] [place] [address]142 Assigned Surgical Provider 10/09/22 05/01/24 [place] [address] [address] [facility] [address] [place], [place] 8[address] Assigned Musculoskeletal Provider 10/09/22 05/01/24 Livan Sharif MD [address], [facility] [address] [place] [address] Assigned Heart and Vascular Provider 11/06/22 11/12/22 Catherine Cm MD [address] [facility] [address] [place] [address] Assigned Heart and Vascular Provider 11/13/22 05/27/23 Sydnie Martinez RN Personal Advocate & Liaison (PAL) Family Medicine 03/28/23 07/31/23 Alfonso Renteria MD [address] [facility] 200 [place] [address] Assigned Neuroscience Provider 04/02/23 Cheng Todd PA-C [address] [place] [address] Assigned PCP 04/30/23 07/15/23 Radha Lomeli APRN CNP [address] [facility] [address] [place] [address] Assigned Heart and Vascular Provider 05/28/23 [address] David OD [address] [facility] [place] [address] MD Ophthalmology 06/15/23 Pao Joseph, VJ Personal Advocate & Liaison (PAL) Nurse 08/01/23 11/07/23 Esha Grimm PA-C [address] [place] [phone] Assigned PCP 07/16/23 Valery Veronica PA-C [address] [place] [address] 714865 Physician Rrt Dermatology 09/19/23 Rey Tay MD [address] [place] [address] 699205 Gastroenterology 09/20/23 Rocky Zepeda DO [address] [place] [address] 159795 Physician Gastroenterology 09/20/23 Philip Dumont MD [address] [place] [address] 785225 Physician Ophthalmology 09/22/23 Meredith Carrera PA-C [address] [place] [address] Assigned Gastroenterology Provider 11/01/23 Neil Kent MD [address] [place] [address] Dermatology 11/02/23 [place] [address] [address] Neurological Surgery 12/26/23 Audrey Waite PA-C 500 [place] [address] Physician Rrt Dermatology 02/28/24 Valery Veronica PA-C [id number] [place] [address] Physician Rrt Dermatology 04/10/24 documented as of this encounter
--- OUTSIDE RECORDS SUMMARY | 2024-05-27 08:55 | XMS_ITS | Encounter Summary ---
Author Organization [place] Address [address] [place] [address] Care Team Providers Care Manager Professional Development Name Role Phone Lita Oseguera Unavailable Unavailable Marija Edgar APRN ENERGY DERIVATIVES TRADER Primary Care Provider + Chanelle Mccann BASIN TENDER CNM Unavailab le Kyara De La Fuente RN Unavailable [phone] Marija Edgar APRN ENERGY DERIVATIVES TRADER Unavailable Mynor Broussard MD Unavailable [phone] Keisha Dotson MD Unavailable Mary Mejia Unavailable Unavailable Stacey Briones CRITICAL CARE REGISTERED NURSE Unavailable Lesley Moody CHW Unavailable Mary Mejia Unavailable Unavailable Lita Oseguera Unavailable Unavailable Galo Burrell MD Unavailable Unavailable Cristina Wood Unavailable Lesley Moody CHW Unavailable Meredith Bedoya Unavailable Unavailable Cristina Wood Unavailable Diana Desir [facility] Unavailable [phone] Ruhland, Rain Lena PA-C Unavailable Summer Lara MD Unavailable [phone] Summer Lara MD Unavailable +[phone] Summer Lara MD Unavailable +[phone] Tavia Wyatt MD Unavailable Unavailable SemJohnny mckeon MD Unavailable +[phone] Erica Farrell APRN ENERGY DERIVATIVES TRADER Unavailable + Vikas Teresita Watson H Unavailable Tavia Wyatt MD Unavailable Unavailable Diana Desir [facility] Unavailable [phone] Rich Barrett MD Unavailable [phone] Neil Kent MD Unavailable Roney Story DPM Unavailable [phone] Erica Farrell APRN ENERGY DERIVATIVES TRADER Unavailable + Diana Desir [facility] Unavailable [phone] Jelena David Radha OD Unavailable Galo Burrell MD Unavailable Unavailable Livan Sharif MD Unavailable + Livan Sharif MD Unavailable + Catherine Cm MD Unavailable + Valery Veronica PA-C Unavailable [phone] Catherine Cm MD Unavailable + Johnny Murillo MD Unavailable +[phone] Brea Quinn APRN ENERGY DERIVATIVES TRADER Unavailable [phone] Brea Quinn BASIN TENDER ENERGY DERIVATIVES TRADER Unavailable [phone] Jose Francisco Johnson MD Unavailable Livan Sharif MD Unavailable + Catherine Cm MD Unavailable + Sydnie Martinez RN Unavailable Unavailable Alfonso Renteria MD Unavailable [phone] Esha Grimm-C Primary Care Provider Cheng Todd PA-C Unavailable Radha Lomeli APRN ENERGY DERIVATIVES TRADER Unavailable FrankieJelena OD Unavailable [phone] Pao Joseph RN Unavailable Unavailable Esha GrimmC Unavailable [phone] Valery Veronica-C Unavailable Rey Tay MD Unavailable Rocky Zepeda DO Unavailable Philip Dumont MD Unavailable Meredith Carrera-C Unavailable Neil Kent MD Unavailable Juan Pablo Emmanuel MD Unavailable [phone] Audrey Waite PA-C Unavailable [phone] JeremíasValery damon-C Unavailable [phone] Reason for Visit * Reason Comments Medication Refill Encounter Details Date Type Department Care Team (Late st Contact Info) Description 07/14/2020 Refill [facility] [phone] [place] [phone] Rakesh Cid PA-C [address] [place] [address] Medication Refill Social History Tobacco [...] CDT Legal Sex Female 4:13 AM ASSISTANT HALL DIRECTOR Gender Identity Female 03/02/2021 5:45 PM CDT Sexual Orientation Straight 02/28/2020 12 :51 AM CDT COVID-19 Exposure Response Date Recorded In the last month, have you been in contact with someone who was confirmed or suspected to have Coronavirus / COVID-19? No / Unsure 06/24/2020 3:01 PM ASSISTANT HALL DIRECTOR documented as of this encounter Miscellaneous Notes * Telephone Encounter - Estephania Black RN - 07/16/2020 11:38 AM ASSISTANT HALL DIRECTOR Routing refill request to provider for review/approval because: Labs out of range: PHQ9> 4 patient was seen 3 weeks ago. Estephania Black RN Flex STANT HALL DIRECTOR * Telephone Encounter - Brea Perry RN - 07/16/2020 11:34 AM ASSISTANT HALL DIRECTOR Routing to correct clinic. STANT HALL DIRECTOR documented in this encounter Plan of Treatment Upcoming Encounters Date Type Department Care Team (Late st Contact Info) Description 05/31/2024 8:40 AM ASSISTANT HALL DIRECTOR Therapy Visit [facility] [address] [place] [phone] Ingris Thompson, PT [facility] [address] [place] [address] [phone] 05/31/2024 3:30 PM ASSISTANT HALL DIRECTOR Office Visit [facility] Specialty [address] [phone] Audrey Díaz, Herminia Koo MD [address] [place] [address] 06/04/2024 3:30 PM ASSISTANT HALL DIRECTOR Office Visit [facility] [address] [facility] [address] [place] [phone] Frankie Jelena Garcia, OD [address] [facility] [place] [address] 06/11/2024 10:30 AM ASSISTANT HALL DIRECTOR Appointment [facility] Respiratory Therapy [address] [place] [phone] Spec, Nurse Only Med 06/18/2024 2:50 PM ASSISTANT HALL DIRECTOR Therapy Visit [facility] [address] [place] [phone] Ingris Thompson, PT [facility] [address] [facility] [address] [place], [place] [phone] 06/21/2024 2:00 PM ASSISTANT HALL DIRECTOR Office Visit [facility] Neurology [facility] - [place] [address] [place] [address], [address] [place] [phone] [place] [address] [place], [place] [address] Johnny Penn MD [address] [facility] [place] [address] 06/25/2024 8:30 AM ASSISTANT HALL DIRECTOR Office Visit [address] [phone] Valery Veronica, PA-C [address] [place] [address] 11/28/2024 7:45 AM CDT Virtual Visit [facility] Gastro[facility]ology [facility] [address] [place] [phone] Meredith Carrera PA-C [address] [place] [address] documented as of this encounter Visit Diagnoses Diagnosis Anxiety Anxiety state, unspecified documented in this encounter Additional Health Concerns Infection Onset Date Last Indicated Resolved Time Rule Out COVID-19 07/30/2020 07/30/2020 07/30/2020 7:11 PM ASSISTANT HALL DIRECTOR Rule Out COVID-19 08/30/2020 08/30/2020 08/30/2020 5:05 PM ASSISTANT HALL DIRECTOR Rule Out COVID-19 09/24/2020 09/24/2020 09/24/2020 9:24 AM CDT Rule Out COVID-19 11/05/2020 11/05/2020 11/06/2020 1:09 PM CDT Rule Out COVID-19 05/11/2021 05/11/2021 05/13/2021 10:18 AM CDT Rule Out COVID-19 07/13/2021 07/13/2021 07/14/2021 3:04 PM ASSISTANT HALL DIRECTOR Rule Out COVID-19 07/18/2021 07/18/2021 07/20/2021 1:56 PM ASSISTANT HALL DIRECTOR COVID-19 07/18/2021 07/18/2021 08/08/2021 11:3 9 PM ASSISTANT HALL DIRECTOR Rule Out COVID-19 12/18/2021 12/18/2021 12/19/2021 11:34 AM CDT Rule Out COVID-19 02/24/2022 02/24/2022 02/25/2022 1:08 PM CDT Rule Out COVID-19 04/26/2022 04/26/2022 04/26/2022 6:47 AM CDT Rule Out COVID-19 05/17/2022 05/17/2022 05/17/2022 10:20 PM ASSISTANT HALL DIRECTOR Rule Out COVID-19 06/09/2022 06/09/2022 06/09/2022 9:35 AM ASSISTANT HALL DIRECTOR COVID-19 06/09/2022 06/09/2022 06/30/2022 11:4 1 PM ASSISTANT HALL DIRECTOR Rule Out COVID-19 11/10/2022 11/10/2022 11/11/2022 12:17 PM CDT Rule Out COVID-19 03/07/2023 03/07/2023 03/07/2023 1:20 PM CDT Rule Out COVID-19 12/26/2023 12/26/2023 12/26/2023 9:50 AM CDT Rule Out COVID-19 04/09/2024 04/09/2024 04/10/2024 6:48 PM CDT Assessment Noted Time PHQ-9 Depression Total Score: 9 06/25/20 7:04 AM ASSISTANT HALL DIRECTOR documented as of this encounter Care Teams Manager Professional Development Relationship Specialty Start Date End Date Marija Edgar APRN ENERGY DERIVATIVES TRADER PCP - General Nurse Practitioner 04/30/20 04/14/23 Esha Grimm PA-C [address] [place] [phone] PCP - General Family Medicine 05/04/23 Lita Oseguera Personal Advocate & Liaison (PAL) 02/28/20 03/27/23 Chanelle Mccann APRN CNM [address] [facility] [address] [place], [place] [phone] Assigned OBGYN Provider 05/02/2005/09 Kyara De La Fuente, RN Specialty Retirement Manager Neurology 06/04/20 03/05/21 Marija Edgar APRN ENERGY DERIVATIVES TRADER Assigned PCP 06/08/20 04/29/23 Mynor Broussard MD [address] [facility] 500 [place] [address] Assigned Surgical Provider 06/01/20 11/28/21 Keisha Dotson MD 909 [place] [address] Assigned Neuroscience Provider 06/04/20 04/01/23 Mary Mejia Financial Resource Worker 08/07/20 08/21/20 Stacey Briones, [facility] Lead Retirement Manager Primary Care - CC 08/11/2012/30 Lesley Moody, [facility] Community Health Worker 08/11/2010/01 Mary Mejia Financial Resource Worker 09/02/20 10/06/20 Lita Oseguera Personal Advocate & Liaison (PAL) Family Medicine 09/10/20 09/21/20 Galo Burrell MD Assigned Heart and Vascular Provider 10/05/20 04/02/22 Cristina Wood Financial Resource Worker 10/07/20 10/14/20 Lesley Moody, [facility] Community Health Worker 10/23/2012/30 Meredith Bedoya Financial Resource Worker 10/23/20 11/23/20 Cristina Wood Financial Resource Worker 02/09/21 02/09/21 Diana Desir, [facility] [address] [place] [address] Pharmacist Pharmacist 04/17/21 Rain Galaviz PA-C [address] [place] [address] [place] [address] Physician Child Care Worker Dermatology 04/28/21 Summer Lara MD [address] [place], [place] [address] Assigned OBGYN Provider 05/10/2105/23 Summer Lara MD [address] [place], [place] [address] Assigned OBGYN Provider 05/31/21 Summer Lara MD [address] [place], [place] [phone] Assigned OBGYN Provider 05/24/2105/30 Tavia Wyatt MD [address] [place] [address] Dermatology 07/14/21 Johnny Murillo MD [address] [place], [place] [phone] Assigned Musculoskeletal Provider 08/30/21 03/17/22 Erica Farrell APRN ENERGY DERIVATIVES TRADER [address] [place] [address] Nurse Practitioner Cardiovascular Disease 09/09/21 Teresita Bean [facility] [address] [place] [phone] Pharmacist Pharmacist 09/24/21 09/29/21 Tavia Wyatt MD Assigned Surgical Provider 11/29/21 05/07/22 Diana Desir [facility] [address] [place] [address] Assigned MTM Pharmacist 01/02/22 Rich Barrett MD [address] [address] Physician Ophthalmology 01/21/22 Neil Kent MD [address] [place] [address] Dermatology 02/24/22 Roney Sotry DPM [address] [facility] [address] [place] [address] Assigned Musculoskeletal Provider 03/20/22 08/13/22 Erica Farrell APRN ENERGY DERIVATIVES TRADER [address] [place] [address] Assigned Heart and Vascular Provider 04/03/22 04/16/22 Diana Desir, [facility] [address] [place] [address] Assigned MTM Pharmacist 04/07/22 Jelena David [place] [address] [facility] [place] [address] Assigned Surgical Provider 05/08/22 10/08/22 Galo Burrell MD Assigned Heart and Vascular Provider 04/17/22 06/11/22 Livan Sharif MD [address] , [facility] [address] [place] [address] Cardiovascular Disease 05/14/22 Livan Sharif MD [address], [facility] [address] [place] [address] Assigned Heart and Vascular Provider 06/12/22 07/23/22 Catherine Cm MD [address] [facility] [place] [id number] Cardiovascular Disease 07/21/22 Valery Veronica, PAUcheC [address] [place] [address]355 Physician Child Care Worker Dermatology 07/21/22 Catherine Cm MD [address] [facility] [place] 5[address] Assigned Heart and Vascular Provider 07/24/22 11/05/22 Johnny Murillo MD [address] [place] [address] 872154 Assigned Musculoskeletal Provider 08/14/22 10/08/22 Brea Quinn APRN ENERGY DERIVATIVES TRADER [address] [place] [address] 655655 Nurse Practitioner Dermatology 09/21/22 Brea Quinn APRN ENERGY DERIVATIVES TRADER [address] [place] [address] [place] 313672 Assigned Surgical Provider 10/09/22 05/01/24 [place] [address] [place] [address] [phone] Assigned Musculoskeletal Provider 10/09/22 05/01/24 Livan Sharif MD [address], [facility] [address] [place] [address] Assigned Heart and Vascular Provider 11/06/22 11/12/22 Catherine Cm MD [address] [place] [address] Assigned Heart and Vascular Provider 11/13/22 05/27/23 Sydnie Martinez RN Personal Advocate & Liaison (PAL) Family Medicine 03/28/23 07/31/23 Alfonso Renteria MD [address] [facility] 200 [place] [address] Assigned Neuroscience Provider 04/02/23 Cheng Todd PA-C [address] [place] [address] [phone] Assigned PCP 04/30/23 07/15/23 Radha Lomeli, BASIN TENDER ENERGY DERIVATIVES TRADER [address] [place] [address] Assigned Heart and Vascular Provider 05/28/23 Jelena David OD [address] [facility] [place] [address] Ophthalmology 06/15/23 Pao Joseph, VJ Personal Advocate & Liaison (PAL) Nurse 08/01/23 11/07/23 Esha Grimm PA-C [address] [place] [phone] Assigned PCP 07/16/23 Valery Veronica PA-C [address] [place] [address] Physician Child Care Worker Dermatology 09/19/23 Rey Tay MD [address] [place] [address] [id number] MD Gastroenterology 09/20/23 Rocky Zepeda DO [address] [place] [address] 042925 Physician Gastroenterology 09/20/23 Philip Dumont MD [address] [place] [address] [phone] Physician Ophthalmology 09/22/23 Meredith Carrera PA-C [address] [place] [address] 888165 Assigned Gastroenterology Provider 11/01/23 Neil Kent MD [address] [address] Dermatology 11/02/23 [place] [address] [address] [facility] [place] [address] Neurological Surgery 12/26/23 Audrey Waite PA-C 500 [place] [address] Physician Child Care Worker Dermatology 02/28/24 Valery Veronica PA-C [address] [place] [address] Physician Child Care Worker Dermatology 04/10/24 documented as of this encounter
--- OUTSIDE RECORDS SUMMARY | 2024-05-27 08:55 | XMS_ITS | Encounter Summary ---
Author Organization [place] Address [address] [place] [address] Care Team Providers Care Vice President Underwriting Name Role Phone Rakesh Cid PA-C Primary Care Provider Lita Oseguera Unavailable Unavailable Rakesh Cid PA-C Unavailable [phone] Lita Oseguera Unavailable Unavailable Marija Edgar APRN JET HANDLER Primary Care Provider + Chanelle Mccann APRN CN Unavailab le Lesley Moody CHW Unavailable Kyara De La Fuente RN Unavailable [phone] Marija Edgar APRN JET HANDLER Unavailable Mynor Broussard MD Unavailable [phone] Keisha Dotson MD Unavailable Mary Mejia Unavailable Unavailable Stacey Briones AIRCRAFT QUALITY CONTROL INSPECTOR Unavailable [phone] Lesley Moody CHKamryn Unavailable Mary Mejia Unavailable Unavailable Lita Oseguera Unavailable Unavailable Galo Burrell MD Unavailable Unavailable Cristina Wood Unavailable Lesley Moody [facility] Unavailable Merdeith Bedoya Unavailable Unavailable Cristina Wood Unavailable Diana Desir [facility] Unavailable [phone] Rain Galaviz PA-C Unavailable Summer Lara MD Unavailable [phone] Summer Lara MD Unavailable [phone] Summer Lara MD Unavailable [phone] Tavia Wyatt MD Unavailable Unavailable Johnny Murillo MD Unavailable [phone] Erica Farrell APRN JET HANDLER Unavailable Teresita Bean [facility] Unavailable Tavia Wyatt MD Unavailable Unavailable Diana Desir [facility] Unavailable [phone] Rich Barrett MD Unavailable Neil Kent MD Unavailable Roney Story DPM Unavailable Erica Farrell APRN JET HANDLER Unavailable Diana Desir [facility] Unavailable [phone] Jelena David Unavailable Galo Burrell MD Unavailable Unavailable Livan Sharif MD Unavailable Livan Sharif MD Unavailable + Catherine Cm MD Unavailable + Valery Veronica-C Unavailable [phone] Catherine Cm MD Unavailable + Johnny Murillo MD Unavailable [phone], Brea P ELECTRONIC ORGAN MECHANIC JET HANDLER Unavailable [phone] CheyenneBrea Jama ELECTRONIC ORGAN MECHANIC JET HANDLER Unavailable Jose Francisco Johnson MD Unavailable Livan Sharif MD Unavailable Catherine Cm MD Unavailable + Sydnie Martinez RN Unavailable Unavailable Alfonso Renteria MD Unavailable [phone] Esha Grimm PA-C Primary Care Provider [phone] Cheng Todd PA-C Unavailable Armani Radha Sia ELECTRONIC ORGAN MECHANIC JET HANDLER Unavailable Frankie Jelena Garcia OD Unavailable [phone] Pao Joseph RN Unavailable Unavailable Esha Grimm PA-C Unavailable [phone] Valery Veronica PA-C Unavailable Rey Tay MD Unavailable Rocky Zepeda DO Unavailable Philip Dumont MD Unavailable [phone] Meredith Carrera PA-C Unavailable Neil Kent MD Unavailable Juan Pablo Emmanuel MD Unavailable Audrey Waite PA-C Unavailable [phone] Valery Veronica PA-C Unavailable Encounter Details Date Type Department Care Team (Late st Contact Info) Description 04/28/2020 [facility] [address] [address] Rakesh Cid PA-C [address] [place] [address] Social History Tobacco Use Types Packs/Day Years Used Date Smoking Tobacco: Former Cigarettes Q uit: 12/07/2019 Other Smokeless Tobacco: Never Comments:Vaping Alcohol Use Standard Drinks/Week Comments Not Currently 0 (1 standard drink = 0.6 oz pur e alcohol) PHQ-2 Answer Date Recorded PHQ-2 Score 4 03/27/2020 Comments No Sex and Gender Information Value Date Recorded Sex Assigned at Female 03/02/2021 5:45 PM CDT Legal Sex Female 4:13 AM SOFT TILE SETTER Gender Identity Female 03/02/2021 5:45 PM CDT [...] st Contact Info) Description 05/31/2024 8:40 AM SOFT TILE SETTER Therapy Visit [facility] [address] [place] [phone] Ingris Thompson, PT [facility] [address] [place] [address] [address] [place] [address] 05/31/2024 3:30 PM SOFT TILE SETTER Office Visit [facility] [address] [phone] Audrey Díaz, Herminia Koo MD [address] [place] [address] 06/04/2024 3:30 PM SOFT TILE SETTER Office Visit [address] [place] [phone] Jelena David, OD [address] [place] [address] [place] [address] 06/11/2024 10:30 AM SOFT TILE SETTER Appointment [facility] Res[facility] Therapy [address] [place] [phone] Spec, Nurse Only Med 06/18/2024 2:50 PM SOFT TILE SETTER Therapy Visit [facility] [place] [address] [facility] [address] [place] [phone] Ingris Thompson, PT [facility] [address] [facility] [address] [place], [place] [address] 06/21/2024 2:00 PM SOFT TILE SETTER Office Visit [facility] [place] [address] [facility] [address] [place] [phone] [place] [address] [place], [place] [address] Johnny Penn MD [address] [place], [place] [address] 06/25/2024 8:30 AM SOFT TILE SETTER Office Visit [address] [phone] Valery Veronica PA-C [address] [place] [address] 11/28/2024 7:45 AM CDT Virtual Visit [facility] [address] 4th [place] [phone] Meredith Carrera PA-C [address] [place] [address]165 documented as of this encounter Visit Diagnoses Not on filedocumented in this encounter Additional Health Concerns Infection Onset Date Last Indicated Resolved Time Rule Out COVID-19 07/30/2020 07/30/2020 07/30/2020 7:11 PM SOFT TILE SETTER Rule Out COVID-19 08/30/2020 08/30/2020 08/30/2020 5:05 PM SOFT TILE SETTER Rule Out COVID-19 09/24/2020 09/24/2020 09/24/2020 9:24 AM CDT Rule Out COVID-19 11/05/2020 11/05/2020 11/06/2020 1:09 PM CDT Rule Out COVID-19 05/11/2021 05/11/2021 05/13/2021 10:18 AM CDT Rule Out COVID-19 07/13/2021 07/13/2021 07/14/2021 3:04 PM SOFT TILE SETTER Rule Out COVID-19 07/18/2021 07/18/2021 07/20/2021 1:56 PM SOFT TILE SETTER COVID-19 07/18/2021 07/18/2021 08/08/2021 11:3 9 PM SOFT TILE SETTER Rule Out COVID-19 12/18/2021 12/18/2021 12/19/2021 11:34 AM CDT Rule Out COVID-19 02/24/2022 02/24/2022 02/25/2022 1:08 PM CDT Rule Out COVID-19 04/26/2022 04/26/2022 04/26/2022 6:47 AM CDT Rule Out COVID-19 05/17/2022 05/17/2022 05/17/2022 10:20 PM SOFT TILE SETTER Rule Out COVID-19 06/09/2022 06/09/2022 06/09/2022 9:35 AM SOFT TILE SETTER COVID-19 06/09/2022 06/09/2022 06/30/2022 11:4 1 PM SOFT TILE SETTER Rule Out COVID-19 11/10/2022 11/10/2022 11/11/2022 12:17 PM CDT Rule Out COVID-19 03/07/2023 03/07/2023 03/07/2023 1:20 PM CDT Rule Out COVID-19 12/26/2023 12/26/2023 12/26/2023 9:50 AM CDT Rule Out COVID04/09/2024 04/09/2024 04/10/2024 6:48 PM CDT Assessment Noted Time PHQ-9 Depression Total Score: 12 020 2:40 PM CDT documented as of this encounter Care Teams Vice President Underwriting Relationship Specialty Start Date End Date Rakesh Cid PA-C PCP - General Physician Lease Picker - Medical 05/14/19 04/29/20 Marija Edgar APRN JET HANDLER [address] [place] [address] PCP - General Nurse Practitioner 04/30/20 04/14/23 Esha Grimm PA-C [address] [place] [phone] PCP - General Family Medicine 05/04/23 Lita Oseguera Personal Advocate & Liaison (PAL) 02/28/20 03/27/23 Rakesh Cid [facility]-C [address] [facility] [place] [address] Assigned PCP 03/02/20 06/07/20 Lita Oseguera Personal Advocate & Liaison (PAL) 04/07/20 04/29/20 Chanelle Mccann APRN [place] [address] [address] Assigned OBGYN Provider 05/02/2005/09 Lesley Moody, CHW Community Health Worker 05/30/2005/12 Kyara De La Fuente, RN Specialty Recoverer Neurology 06/04/20 03/05/21 Marija Edgar APRN JET HANDLER [address] [place] [address] Assigned PCP 06/08/20 04/29/23 Mynor Broussard MD [address] [place] [address] Assigned Surgical Provider 06/01/20 11/28/21 Keisha Dotson MD [address] [place], [place] [address] Assigned Neuroscience Provider 06/04/20 04/01/23 Mary Mejia Financial Resource Worker 08/07/20 08/21/20 Stacey Briones, [facility] Lead Recoverer Primary Care - CC 08/11/2012/30 Lesley Moody, [facility] Community Health Worker 08/11/2010/01 Mary Mejia Financial Resource Worker 09/02/20 10/06/20 Lita Oseguera Personal Advocate & Liaison (PAL) Family Medicine 09/10/20 09/21/20 Galo Burrell MD Assigned Heart and Vascular Provider 10/05/20 04/02/22 Cristina Wood Financial Resource Worker 10/07/20 10/14/20 Lesley Moody, [facility] Community Health Worker 10/23/2012/30 Meredith Bedoya Financial Resource Worker 10/23/20 11/23/20 Cristina Wood Financial Resource Worker 02/09/21 02/09/21 [facility] [address] [place] [address] Pharmacist Pharmacist 04/17/21 Rain Galaviz PA-C [address] [facility] [place] [address] Physician Lease Picker Dermatology 04/28/21 Summer Lara MD [address] [place] [address] Assigned OBGYN Provider 05/10/2105/23 Summer Lara MD [address] [place] [address] Assigned OBGYN Provider 05/31/21 Summer Lara MD [address] [place] [address] [place] [address] Assigned OBGYN Provider 05/24/2105/30 Tavia Wyatt MD [address] [place] [address] [place] [address] Dermatology 07/14/21 Johnny Murillo MD [address] [place] [address] Assigned Musculoskeletal Provider 08/30/21 03/17/22 Erica Farrell APRN JET HANDLER [address] [facility] [address] [place] [address] Nurse Practitioner Cardiovascular Disease 09/09/21 Teresita Bean, [facility] [address] [place] [address] Pharmacist Pharmacist 09/24/21 09/29/21 Tavia Wyatt MD Assigned Surgical Provider 11/29/21 05/07/22 Diana Desir, [facility] [address] [place] [address] Assigned MTM Pharmacist 01/02/22 Rich Barrett MD [address] [address] Physician Ophthalmology 01/21/22 Neil Kent MD [address] [place] [address] Dermatology 02/24/22 Roney Story DPM [address] [facility] [address] [place] [address] Assigned Musculoskeletal Provider 03/20/22 08/13/22 Erica Farrell APRN JET HANDLER [address] [place] [address] Assigned Heart and Vascular Provider 04/03/22 04/16/22 Diana Desir, [facility] [address] [place] [address] Assigned MTM Pharmacist 04/07/22 Jelena David OD [address] [facility] [place] [address] Assigned Surgical Provider 05/08/22 10/08/22 Galo Burrell MD Assigned Heart and Vascular Provider 04/17/22 06/11/22 Livan Sharif MD [address], [facility] [address] [place] [address] Cardiovascular Disease 05/14/22 Livan Sharif MD [address], [address] [place] [address] Assigned Heart and Vascular Provider 06/12/22 07/23/22 Catherine Cm MD [address] [place], [place] [phone] Cardiovascular Disease 07/21/22 Valery Veronica, PA-C [address] [place] [address] 864685 Physician Lease Picker Dermatology 07/21/22 Catherine Cm MD [address] [place] [address] Assigned Heart and Vascular Provider 07/24/22 11/05/22 Johnny Murillo MD [facility] [address] [address] Assigned Musculoskeletal Provider 08/14/22 10/08/22 Brea Quinn APRN JET HANDLER [address] [place] [address] 988875 Nurse Practitioner Dermatology 09/21/22 Brea Quinn APRN JET HANDLER [address] [place] [address] Assigned Surgical Provider 10/09/22 05/01/24 [place] [address] [place] [address] [place] [address], [place] [address] Assigned Musculoskeletal Provider 10/09/22 05/01/24 Livan Sharif MD [address] [facility] [address] [place] [address] Assigned Heart and Vascular Provider 11/06/22 11/12/22 Catherine Cm MD [address] [facility] [place] [address] Assigned Heart and Vascular Provider 11/13/22 05/27/23 Sydnie Martinez, VJ Personal Advocate & Liaison (PAL) Family Medicine 03/28/23 07/31/23 Alfonso Renteria MD [address] [facility] [address] [place] [address] Assigned Neuroscience Provider 04/02/23 Cheng Todd PA-C [address] [place] [address] Assigned PCP 04/30/23 07/15/23 Radha Lomeli APRN JET HANDLER [address] [place] [address] Assigned Heart and Vascular Provider 05/28/23 Jelena David OD [address] [facility] [place] [address] MD Ophthalmology 06/15/23 Pao Joseph, RN Personal Advocate & Liaison (PAL) Nurse 08/01/23 11/07/23 Esha Grimm PA-C [address] [place] [address] Assigned PCP 07/16/23 Valery Veronica PA-C [address] [place] [address] 206815 Physician Lease Picker Dermatology 09/19/23 Rey Tay MD [address] [place] [address] 805375 MD Gastroenterology 09/20/23 Rocky Zepeda DO [address] [place] [address] 198295 Physician Gastroenterology 09/20/23 Philip Dumont MD [address] [place] [address] 099445 Physician Ophthalmology 09/22/23 Meredith Carrera PA-C [address] [place] [address] [id number] Assigned Gastroenterology Provider 11/01/23 Neil Kent MD [address] [place] [address] Dermatology 11/02/23 [place] [address] [place] [address] Neurological Surgery 12/26/23 Audrey Waite PA-C [address] [place] [address] Physician Lease Picker Dermatology 02/28/24 Valery Veronica PA-C [address] [place] [address] Physician Lease Picker Dermatology 04/10/24 documented as of this encounter
--- OUTSIDE RECORDS SUMMARY | 2024-05-27 08:55 | XMS_ITS | Encounter Summary ---
Author Organization [facility] Address [address] [place] [address] Care Team Providers Care Seed Potato Cutter Name Role Phone Lita Oseguera Unavailable Unavailable Rakesh Cid PA-C Unavailable Marija Edgar DRAINLAYER DAILY SALES AUDIT CLERK Primary Care Provider + Chanelle Mccann DRAINLAYER CN Unavailab le Lesley Moody CHW Unavailable [phone] Kyara De La Fuente RN Unavailable [phone] Marija Edgar APRN DAILY SALES AUDIT CLERK Unavailable Mynor Broussard MD Unavailable [phone] Keisha Dotson MD Unavailable [phone] Mary Mejia Unavailable Unavailable Stacey Briones MAINTENANCE SHOP TECHNICIAN Unavailable Lesley Moody CHW Unavailable [phone] Mary Mejia Unavailable Unavailable Lita Oseguera Unavailable Unavailable Galo Burrell MD Unavailable Unavailable Cristina Wood Unavailable Lesley Moody CHW Unavailable Meredith Bedoya Unavailable Unavailable Cristina Wood Unavailable DesirDiana [facility] Unavailable [phone] Rain Galaviz PA-C Unavailable [phone] Summer Lara MD Unavailable [phone] Summer Lara MD Unavailable [phone] Summer Lara MD Unavailable [phone] Tavia Wyatt MD Unavailable Unavailable Johnny Murillo MD Unavailable [phone] Erica Farrell DRAINLAYER DAILY SALES AUDIT CLERK Unavailable Vikas Teresita Jesus Walter [facility] Unavailable Tavia Wyatt MD Unavailable Unavailable Diana Desir [facility] Unavailable [phone] Rich Barrett MD Unavailable [phone] Neil Kent MD Unavailable Roney Story DPM Unavailable Erica Farrell DRAINLAYER DAILY SALES AUDIT CLERK Unavailable Diana Desir [facility] Unavailable [phone] Jelena David OD Unavailable Galo Burrell MD Unavailable Unavailable Livan Sharif MD Unavailable + Livan Sharif MD Unavailable + Catherine Cm MD Unavailable + Valery Veronica PA-C Unavailable [phone] Catherine Cm MD Unavailable + Johnny Murillo MD Unavailable [phone] Brea Quinn DRAINLAYER DAILY SALES AUDIT CLERK Unavailable [phone] Brea Quinn DRAINLAYER DAILY SALES AUDIT CLERK Unavailable [phone] Jose Francisco Johnson MD Unavailable Livan Sharif MD Unavailable Catherine Cm MD Unavailable + Sydnie Martinez RN Unavailable Unavailable Alfonso Renteria MD Unavailable [phone] Esha Grimm PA-C Primary Care Provider [phone] Cheng Todd PA-C Unavailable Radha Lomeli APRN DAILY SALES AUDIT CLERK Unavailable Jelena David OD Unavailable [phone] Pao Joseph RN Unavailable Unavailable Esha Grimm PA-C Unavailable [phone] Valery Veronica PA-C Unavailable [phone] Rey Tay MD Unavailable Rocky Zepeda DO Unavailable Philip Dumont MD Unavailable Meredith Carrera PA-C Unavailable [phone] Neil Kent MD Unavailable Juan Pablo Emmanuel MD Unavailable [phone] Audrey Waite PA-C Unavailable [phone] JeremíasValery damon PA-C Unavailable [phone] Encounter Details Date Type Department Care Team (Late st Contact Info) Description 05/16/2020 MyC Medical Advice [facility] [address] [place] [phone] Jerome Ferrell, RN Social History Tobacco Use Types Packs/Day Years Used Date Smoking Tobacco: Former Cigarettes Q uit: 12/07/2019 Other Smokeless Tobacco: Never Alcohol Use Standard Drinks/Week Comments Not Currently 0 (1 standard drink = 0.6 oz pur e alcohol) PHQ-2 Answer Date Recorded PHQ-2 Score 2 05/19/2020 Comments No Sex and Gender Information Value Date Recorded Sex Assigned at Female 03/02/2021 5:45 PM CDT Legal Sex Female 4:13 AM TOMOGRAPHIC TECH Gender Identity Female 03/02/2021 5:45 PM CDT Sexual Orientation Straight 02/28/2020 12 :51 AM CDT COVID-19 Exposure Response Date Recorded In the last month, have you been in contact with someone who was confirmed or suspected to have Coronavirus / COVID-19? No / Unsure 05/12/2020 9:03 AM TOMOGRAPHIC TECH documented as of this encounter Plan of Treatment Upcoming Encounters Date Type Department Care Team (Late st Contact Info) Description 05/31/2024 8:40 AM TOMOGRAPHIC TECH Therapy Visit [address] [phone] Ingris Thompson, PT [facility] [address] [place] [address] [phone] 05/31/2024 3:30 PM TOMOGRAPHIC TECH Office Visit [facility] [address] [phone] Audrey Díaz, Herminia Koo MD [address] [place] [address] 06/04/2024 3:30 PM TOMOGRAPHIC TECH [facility] [address] [place] [address] [address] [place] [phone] Jelena David, SNOJA [address] [place] [address] [place] [address] 06/11/2024 10:30 AM TOMOGRAPHIC TECH Appointment [facility] [address] [place] [phone] Spec, Nurse Only Med 06/18/2024 2:50 PM TOMOGRAPHIC TECH Therapy Visit [address] [phone] Ingris Thompson, PT [facility] [address] [facility] [address] [place], [place] [address] 06/21/2024 2:00 PM TOMOGRAPHIC TECH Office Visit [facility] [place] [address] [facility], [address] [place] [phone] [place] [address] [place], [place] [phone] Johnny Penn MD [address] [facility] [address] [place], [place] [phone] 06/25/2024 8:30 AM TOMOGRAPHIC TECH Office Visit [address] [phone] Valery Veronica PA-C [address] [place] [address] [phone] 11/28/2024 7:45 AM CDT Virtual Visit [facility] [address] 4th [place] [phone] Meredith Carrera PA-C [address] [place] [address] [phone] documented as of this encounter Visit Diagnoses Not on filedocumented in this encounter Additional Health Concerns Infection Onset Date Last Indicated Resolved Time Rule Out COVID-19 07/30/2020 07/30/2020 07/30/2020 7:11 PM TOMOGRAPHIC TECH Rule Out COVID-19 08/30/2020 08/30/2020 08/30/2020 5:05 PM TOMOGRAPHIC TECH Rule Out COVID-19 09/24/2020 09/24/2020 09/24/2020 9:24 AM CDT Rule Out COVID-19 11/05/2020 11/05/2020 11/06/2020 1:09 PM CDT Rule Out COVID-19 05/11/2021 05/11/2021 05/13/2021 10:18 AM CDT Rule Out COVID-19 07/13/2021 07/13/2021 07/14/2021 3:04 PM TOMOGRAPHIC TECH Rule Out COVID-19 07/18/2021 07/18/2021 07/20/2021 1:56 PM TOMOGRAPHIC TECH COVID-19 07/18/2021 07/18/2021 08/08/2021 11:3 9 PM TOMOGRAPHIC TECH Rule Out COVID-19 12/18/2021 12/18/2021 12/19/2021 11:34 AM CDT Rule Out COVID-19 02/24/2022 02/24/2022 02/25/2022 1:08 PM CDT Rule Out COVID-19 04/26/2022 04/26/2022 04/26/2022 6:47 AM CDT Rule Out COVID-19 05/17/2022 05/17/2022 05/17/2022 10:20 PM TOMOGRAPHIC TECH Rule Out COVID-19 06/09/2022 06/09/2022 06/09/2022 9:35 AM TOMOGRAPHIC TECH COVID-19 06/09/2022 06/09/2022 06/30/2022 11:4 1 PM TOMOGRAPHIC TECH Rule Out COVID-19 11/10/2022 11/10/2022 11/11/2022 12:17 PM CDT Rule Out COVID-19 03/07/2023 03/07/2023 03/07/2023 1:20 PM CDT Rule Out COVID-19 12/26/2023 12/26/2023 12/26/2023 9:50 AM CDT Rule Out COVID-19 04/09/2024 04/09/2024 04/10/2024 6:48 PM CDT Assessment Noted Time PHQ-9 Depression Total Score: 12 03/27/ 020 2:40 PM CDT documented as of this encounter Care Teams Seed Potato Cutter Relationship Specialty Start Date End Date Marija Edgar APRN DAILY SALES AUDIT CLERK [address] [place] [address] PCP - General Nurse Practitioner 04/30/20 04/14/23 Esha Grimm PA-C [address] [facility] [place] [phone] PCP - General Family Medicine 05/04/23 Lita Oseguera Personal Advocate & Liaison (PAL) 02/28/20 03/27/23 Rakesh Cid PA-C [address] [address] [place] [address] Assigned PCP 03/02/20 06/07/20 Chanelle Mccann APRN CNM [address] [place] [address] [address] [place] [address] Assigned OBGYN Provider 05/02/2005/09 Lesley Moody, CHW Community Health Worker 05/30/2005/12 Kyara De La Fuente, RN Specialty Structural Drafter Neurology 06/04/20 03/05/21 Marija Edgar APRN DAILY SALES AUDIT CLERK [address] [place] [address] Assigned PCP 06/08/20 04/29/23 Mynor Broussard MD [address] [facility] 500 [place] [address] Assigned Surgical Provider 06/01/20 11/28/21 Keisha Dotson MD [address] [place] [address] Assigned Neuroscience Provider 06/04/20 04/01/23 Aditi Mejiandra Financial Resource Worker 08/07/20 08/21/20 Stacey Briones, [facility] Lead Structural Drafter Primary Care - CC 08/11/2012/30 Lesley Moody, [facility] Community Health Worker 08/11/2010/01 Jackie Mary Financial Resource Worker 09/02/20 10/06/20 Lita Oseguera Personal Advocate & Liaison (PAL) Family Medicine 09/10/20 09/21/20 Galo Burrell MD Assigned Heart and Vascular Provider 10/05/20 04/02/22 Cristina Wood Financial Resource Worker 10/07/20 10/14/20 Lesley Moody, [facility] Community Health Worker 10/23/2012/30 Meredith Bedoya Financial Resource Worker 10/23/20 11/23/20 Cristina Wood Financial Resource Worker 02/09/21 02/09/21 Diana Desir, [facility] [address] [place], [place] [address] Pharmacist Pharmacist 04/17/21 Rain Galaviz PA-C [address] [place] [address] [address] [facility] [place] [phone] Physician Retail Sales Vitamin Consultant Dermatology 04/28/21 Summer Lara MD [address] [place], [place] [phone] Assigned OBGYN Provider 05/10/2105/23 Summer Lara MD [address] [place] [address] Assigned OBGYN Provider 05/31/21 Summer Lara MD [address] [place] [address] Assigned OBGYN Provider 05/24/2105/30 Tavia Wyatt MD [address] [place] [address] [facility] 07/14/21 Johnny Murillo MD [address] [facility] [address] [place] [address] Assigned Musculoskeletal Provider 08/30/21 03/17/22 Erica Farrell APRN DAILY SALES AUDIT CLERK [address] [facility] [address] [place], [place] [phone] Nurse Practitioner Cardiovascular Disease 09/09/21 Teresita Bean, [facility] [address] [place] [place], [place] [phone] Pharmacist Pharmacist 09/24/21 09/29/21 Tavia Wyatt MD Assigned Surgical Provider 11/29/21 05/07/22 [facility] [address] [place] [address] Assigned MTM Pharmacist 01/02/22 Rich Barrett MD [address] [facility] [address] [place] [address] Physician Ophthalmology 01/21/22 Neil Kent MD 500 [place] [address] Dermatology 02/24/22 Roney Story DPM [address] [facility] [address] [place] [address] Assigned Musculoskeletal Provider 03/20/22 08/13/22 Erica Farrell APRN DAILY SALES AUDIT CLERK [address]00 [place] [address] Assigned Heart and Vascular Provider 04/03/22 04/16/22 [facility] [address] [place] [address] Assigned MTM Pharmacist 04/07/22 Jelena David OD [address] [facility] [place] [address] Assigned Surgical Provider 05/08/22 10/08/22 Galo Burrell MD Assigned Heart and Vascular Provider 04/17/22 06/11/22 Livan Sharif MD [address] [place] [address]12[address] Cardiovascular Disease 05/14/22 Livan Sharif MD [address] [place] [id number] Assigned Heart and Vascular Provider 06/12/22 07/23/22 Catherine Cm MD [address] [facility] [place] [address] Cardiovascular Disease 07/21/22 Valery Veronica, PA-C [address] [place] [address] [phone] Physician Retail Sales Vitamin Consultant Dermatology 07/21/22 Catherine Cm MD [address] [place] [address] [place] [address] Assigned Heart and Vascular Provider 07/24/22 11/05/22 Johnny Murillo MD [address] [place] [address] Assigned Musculoskeletal Provider 08/14/22 10/08/22 Brea Quinn APRN DAILY SALES AUDIT CLERK [address] [place] [address] Nurse Practitioner Dermatology 09/21/22 Brea Quinn APRN DAILY SALES AUDIT CLERK [address] [place] [address] [place] [address] Assigned Surgical Provider 10/09/22 05/01/24 [place] [address] [place] [address] Assigned Musculoskeletal Provider 10/09/22 05/01/24 Livan Sharif MD [address], [facility] [place] [address] Assigned Heart and Vascular Provider 11/06/22 11/12/22 Catherine Cm MD [address] [place] [address] Assigned Heart and Vascular Provider 11/13/22 05/27/23 Sydnie Martinez RN Personal Advocate & Liaison (PAL) Family Medicine 03/28/23 07/31/23 Alfonso Renteria MD [address] [facility] 200 [place], [place] [address] Assigned Neuroscience Provider 04/02/23 Cheng Todd PA-C [address] [place] [address] [id number] Assigned PCP 04/30/23 07/15/23 Radha Lomeli APRN DAILY SALES AUDIT CLERK [address] [place] [address] Assigned Heart and Vascular Provider 05/28/23 Jelena David OD [address] [facility] [address] [place] [phone] Ophthalmology 06/15/23 Pao Joseph, VJ Personal Advocate & Liaison (PAL) Nurse 08/01/23 11/07/23 Esha Grimm PA-C [address] [place] [phone] Assigned PCP 07/16/23 Valery Veronica PA-C [address] [place] [address] Physician Retail Sales Vitamin Consultant Dermatology 09/19/23 Rey Tay MD 9 [place] [address] MD Gastroenterology 09/20/23 Rocky Zepeda DO 500 [place] [address] Physician Gastroenterology 09/20/23 Philip Dumont MD 6 [place] [address] Physician Ophthalmology 09/22/23 Meredith Carrera PA-C 9 [place] [address] Assigned Gastroenterology Provider 11/01/23 Neil Kent MD [address] [place] [address] Dermatology 11/02/23 [place] [address] [place] [address] Neurological Surgery 12/26/23 Audrey Waite PA-C [address] [place] [address] Physician Retail Sales Vitamin Consultant Dermatology 02/28/24 Valery Veronica PA-C [address] [place] [address] Physician Retail Sales Vitamin Consultant Dermatology 04/10/24 documented as of this encounter
--- OUTSIDE RECORDS SUMMARY | 2024-05-27 08:55 | XMS_ITS | Encounter Summary ---
Author Organization [facility] Address [address] [place] [address] Care Team Providers Care Environmental Studies Program Director Name Role Phone Lita Osgeuera Unavailable Unavailable Rakesh Cid PA-C Unavailable Marija Edgar TAI CHI INSTRUCTOR COFFEE BREWER Primary Care Provider + Chanelle Mccann TAI CHI INSTRUCTOR CN Unavailab le Lesley Moody CHW Unavailable [phone] Kyara De La Fuente RN Unavailable [phone] Marija Edgar APRN COFFEE BREWER Unavailable Mynor Broussard MD Unavailable [phone] Keisha Dotson MD Unavailable Mary Mejia Unavailable Unavailable Stacey Briones FINISHER TAILOR APPRENTICE Unavailable [phone] Lesley Moody CHW Unavailable [phone] Mary Mejia Unavailable Unavailable Lita Oseguera Unavailable Unavailable Galo Burrell MD Unavailable Unavailable Crsitina Wood Unavailable Lesley Moody CHW Unavailable Meredith Bedoya Unavailable Unavailable Cristina Wood Unavailable DesirDiana [facility] Unavailable [phone] Rain Galaviz PA-C Unavailable [phone] Summer Lara MD Unavailable [phone] Summer Lara MD Unavailable Summer Lara MD Unavailable [phone] Tavia Wyatt MD Unavailable Unavailable Johnny Murillo MD Unavailable [phone] Erica Farrell TAI CHI INSTRUCTOR COFFEE BREWER Unavailable Vikas Teresita Jesus Walter [facility] Unavailable Tavia Wyatt MD Unavailable Unavailable Diana Desir [facility] Unavailable [phone] Rich Barrett MD Unavailable [phone] Neil Kent MD Unavailable Roney Story DPM Unavailable Erica Farrell TAI CHI INSTRUCTOR COFFEE BREWER Unavailable Diana Desir [facility] Unavailable [phone] Jelena David OD Unavailable Galo Burrell MD Unavailable Unavailable Livan Sharif MD Unavailable + Livan Sharif MD Unavailable + Catherine Cm MD Unavailable + Valery Veronica PA-C Unavailable [phone] Catherine Cm MD Unavailable + Johnny Murillo MD Unavailable [phone] Brea Quinn TAI CHI INSTRUCTOR COFFEE BREWER Unavailable [phone] Brea Quinn TAI CHI INSTRUCTOR COFFEE BREWER Unavailable [phone] Jose Francisco Johnson MD Unavailable Livan Sharif MD Unavailable Catherine Cm MD Unavailable + Sydnie Martinez RN Unavailable Unavailable Alfonso Renteria MD Unavailable [phone] Esha Grimm PA-C Primary Care Provider Cheng Todd PA-C Unavailable Radha Lomeli APRN COFFEE BREWER Unavailable Jelena David OD Unavailable [phone] Pao oJseph RN Unavailable Unavailable Esha Grimm PA-C Unavailable [phone] Valery Veronica PA-C Unavailable [phone] Rey Tay MD Unavailable Rocky Zepeda DO Unavailable Philip Dumont MD Unavailable [phone] Meredith Carrera PA-C Unavailable [phone] Neil Kent MD Unavailable Juan Pablo Emmanuel MD Unavailable [phone] Audrey Waite PA-C Unavailable [phone] JeremíasValery damon PA-C Unavailable Encounter Details Date Type Department Care Team (Late st Contact Info) Description 05/23/2020 MyC Medical Advice [address] [address] Marija Edgar APRN COFFEE BREWER [address] [place] [phone] Social History Tobacco Use Types Packs/Day [...] PM CDT Legal Sex Female 4:13 AM AEGIS OPERATIONS SPECIALIST Gender Identity Female 03/02/2021 5:45 PM CDT Sexual Orientation Straight 02/28/2020 12 :51 AM CDT COVID-19 Exposure Response Date Recorded In the last month, have you been in contact with someone who was confirmed or suspected to have Coronavirus / COVID-19? No / Unsure 05/12/2020 9:03 AM AEGIS OPERATIONS SPECIALIST documented as of this encounter Plan of Treatment Upcoming Encounters Date Type Department Care Team (Late st Contact Info) Description 05/31/2024 8:40 AM AEGIS OPERATIONS SPECIALIST Therapy Visit [facility] [address] [place] [phone] Ingris Thompson, PT [facility] [address] [place] [address] 05/31/2024 3:30 PM AEGIS OPERATIONS SPECIALIST Office Visit [facility] [place] [address] [place] [phone] Audrey Díaz, Herminia Koo MD [address] [place] [address] 06/04/2024 3:30 PM AEGIS OPERATIONS SPECIALIST Office Visit [facility] [address] [place] [address] [address] [place] [phone] [place] [address] [place] [address] [place] [address] 06/11/2024 10:30 AM AEGIS OPERATIONS SPECIALIST Appointment [facility] Respiratory Therapy [address] [place] [phone] Spec, Nurse Only Med 06/18/2024 2:50 PM AEGIS OPERATIONS SPECIALIST Therapy Visit [facility] [address] [place] [address] Ingris Thompson, PT [facility] [address] [facility] [address] [place], [place] [address] 06/21/2024 2:00 PM AEGIS OPERATIONS SPECIALIST Office Visit [facility] [place] [address] [facility], [address] [place] [phone] [place] [address] [place] [address] Johnny Penn MD [address] [place], [place] [phone] 06/25/2024 8:30 AM AEGIS OPERATIONS SPECIALIST Office Visit [address] [phone] Valery Veronica, PAUcheC [address] [place] [address]205 11/28/2024 7:45 AM CDT Virtual Visit [facility] [address] 4th [place] [phone] Meredith Carrera PA-C [address] [place] [phone] documented as of this encounter Visit Diagnoses Not on filedocumented in this encounter Additional Health Concerns Infection Onset Date Last Indicated Resolved Time Rule Out COVID-19 07/30/2020 07/30/2020 07/30/2020 7:11 PM AEGIS OPERATIONS SPECIALIST Rule Out COVID-19 08/30/2020 08/30/2020 08/30/2020 5:05 PM AEGIS OPERATIONS SPECIALIST Rule Out COVID-19 09/24/2020 09/24/2020 09/24/2020 9:24 AM CDT Rule Out COVID-19 11/05/2020 11/05/2020 11/06/2020 1:09 PM CDT Rule Out COVID-19 05/11/2021 05/11/2021 05/13/2021 10:18 AM CDT Rule Out COVID-19 07/13/2021 07/13/2021 07/14/2021 3:04 PM AEGIS OPERATIONS SPECIALIST Rule Out COVID-19 07/18/2021 07/18/2021 07/20/2021 1:56 PM AEGIS OPERATIONS SPECIALIST COVID-19 07/18/2021 07/18/2021 08/08/2021 11:3 9 PM AEGIS OPERATIONS SPECIALIST Rule Out COVID-19 12/18/2021 12/18/2021 12/19/2021 11:34 AM CDT Rule Out COVID-19 02/24/2022 02/24/2022 02/25/2022 1:08 PM CDT Rule Out COVID-19 04/26/2022 04/26/2022 04/26/2022 6:47 AM CDT Rule Out COVID-19 05/17/2022 05/17/2022 05/17/2022 10:20 PM AEGIS OPERATIONS SPECIALIST Rule Out COVID-19 06/09/2022 06/09/2022 06/09/2022 9:35 AM AEGIS OPERATIONS SPECIALIST COVID-19 06/09/2022 06/09/2022 06/30/2022 11:4 1 PM AEGIS OPERATIONS SPECIALIST Rule Out COVID-19 11/10/2022 11/10/2022 11/11/2022 12:17 PM CDT Rule Out COVID-19 03/07/2023 03/07/2023 03/07/2023 1:20 PM CDT Rule Out COVID-19 12/26/2023 12/26/2023 12/26/2023 9:50 AM CDT Rule Out COVID-19 04/09/2024 04/09/2024 04/10/2024 6:48 PM CDT Assessment Noted Time PHQ-9 Depression Total Score: 6 08/28/19 21 7:05 AM AEGIS OPERATIONS SPECIALIST documented as of this encounter Care Teams Environmental Studies Program Director Relationship Specialty Start Date End Date Marija Edgar APRN COFFEE BREWER [address] [place], [place] [address] PCP - General Nurse Practitioner 04/30/20 04/14/23 Esha Grimm PA-C [address] [place] [phone] PCP - General Family Medicine 05/04/23 Lita Oseguera Personal Advocate & Liaison (PAL) 02/28/20 03/27/23 Rakesh Cid PA-C [address] [place] [address] Assigned PCP 03/02/20 06/07/20 Chanelle Mccann APRN CNM [address] [facility] [address] [place], [place] [phone] Assigned OBGYN Provider 05/02/2005/09 Lesley Moody CHW Community Health Worker 05/30/2005/12 Kyara De La Fuente, RN Specialty Roto Mixer Operator Neurology 06/04/20 03/05/21 Marija Edgar APRN COFFEE BREWER [address] [place] [address] Assigned PCP 06/08/20 04/29/23 Mynor Broussard MD [address] [facility] [facility] [address] [place] [address] Assigned Surgical Provider 06/01/20 11/28/21 Keisha Dotson MD [address] [place], [place] 220345 Assigned Neuroscience Provider 06/04/20 04/01/23 Mary Mejia Financial Resource Worker 08/07/20 08/21/20 Stacey Briones, [facility] Lead Roto Mixer Operator Primary Care - CC 08/11/2012/30 Lesley Moody, [facility] Community Health Worker 08/11/2010/01 Mary Mejia Financial Resource Worker 09/02/20 10/06/20 Lita Oseguera Personal Advocate & Liaison (PAL) Family Medicine 09/10/20 09/21/20 Galo Burrell MD Assigned Heart and Vascular Provider 10/05/20 04/02/22 Cristina Wood Financial Resource Worker 10/07/20 10/14/20 Lesley Moody, [facility] Community Health Worker 10/23/2012/30 Meredith Bedoya Financial Resource Worker 10/23/20 11/23/20 Cristina Wood Financial Resource Worker 02/09/21 02/09/21 Diana Desir, [facility] [address] [place] [address] Pharmacist Pharmacist 04/17/21 aRin Galaviz PA-C [address] [place] [address] [facility] [address] Physician Director Of Diagnostic Imaging Dermatology 04/28/21 Summer Lara MD [address] [place] [address] Assigned OBGYN Provider 05/10/2105/23 Summer Lara MD [address] [place] [address] Assigned OBGYN Provider 05/31/21 Summer Lara MD [address] [place] [address] Assigned OBGYN Provider 05/24/2105/30 Tavia Wyatt MD [address] [place] [address] [facility] 07/14/21 Johnny Murillo MD [address] [place] [address] Assigned Musculoskeletal Provider 08/30/21 03/17/22 Erica Farrell APRN COFFEE BREWER [address] [facility] [address] [place] [address] Nurse Practitioner Cardiovascular Disease 09/09/21 Teresita Bean, [facility] [address] [place] [address] Pharmacist Pharmacist 09/24/21 09/29/21 Tavia Wyatt MD Assigned Surgical Provider 11/29/21 05/07/22 Diana Desir, [facility] [address] [place] [address] Assigned MTM Pharmacist 01/02/22 Rich Barrett MD [address] 918[address] Physician Ophthalmology 01/21/22 Neil Kent MD [address] [place], [place] [address] Dermatology 02/24/22 Roney Story DPM [address] [facility] [address] [place], [place] 7[address] Assigned Musculoskeletal Provider 03/20/22 08/13/22 Erica Farrell APRN COFFEE BREWER [facility] [place] [address] Assigned Heart and Vascular Provider 04/03/22 04/16/22 Diana Desir, [facility] [address] [place] [address] Assigned MTM Pharmacist 04/07/22 [place]elena David OD [address] [facility] [place] [address] Assigned Surgical Provider 05/08/22 10/08/22 Galo Burrell MD Assigned Heart and Vascular Provider 04/17/22 06/11/22 Livan Sharif MD [address] [place] [id number] Cardiovascular Disease 05/14/22 Livan Sharif MD [address], [facility] [address] [place] [address] Assigned Heart and Vascular Provider 06/12/22 07/23/22 Catherine Cm MD [address] [facility] [address] [place] [address] Cardiovascular Disease 07/21/22 Valery Veronica, PA-C [address] [place] [address] 863715 Physician Director Of Diagnostic Imaging Dermatology 07/21/22 Catherine Cm MD [address] Sylvia [facility] [place] [address] Assigned Heart and Vascular Provider 07/24/22 11/05/22 Johnny Murillo MD [address] [place] [address] 690224 Assigned Musculoskeletal Provider 08/14/22 10/08/22 Brea Quinn APRN COFFEE BREWER [address] [place] [address] 705295 Nurse Practitioner Dermatology 09/21/22 Brea Quinn APRN COFFEE BREWER [address] [place] [address] [place] 333492 Assigned Surgical Provider 10/09/22 05/01/24 [place] [address] RA[address] [place] [address] [id number] Assigned Musculoskeletal Provider 10/09/22 05/01/24 Livan Sharif MD [address], [facility] [address] [place] 201605 Assigned Heart and Vascular Provider 11/06/22 11/12/22 Catherine Cm MD [address] [place], [place] 584[address] Assigned Heart and Vascular Provider 11/13/22 05/27/23 Sydnie Martinez, RN Personal Advocate & Liaison (PAL) Family Medicine 03/28/23 07/31/23 Alfonso Renteria MD [address] [facility] [address] [place] [address] Assigned Neuroscience Provider 04/02/23 Cheng Todd PA-C [address] [place] [address] [phone] Assigned PCP 04/30/23 07/15/23 Radha Lomeli APRN COFFEE BREWER [address] [place] [address] Assigned Heart and Vascular Provider 05/28/23 Jelena David OD [address] [facility] [place] [address] Ophthalmology 06/15/23 Pao Joseph, VJ Personal Advocate & Liaison (PAL) Nurse 08/01/23 11/07/23 Esha Grimm PA-C [address] [place] [address] Assigned PCP 07/16/23 Valery Veronica PA-C [address] [place] [address] Physician Director Of Diagnostic Imaging Dermatology 09/19/23 Rey Tay MD 9 [place] [address] MD Gastroenterology 09/20/23 Rocky Zepeda DO [address] [place], [place] 58[address] Physician Gastroenterology 09/20/23 Philip Dumont MD [address] [place] [address] 297735 Physician Ophthalmology 09/22/23 Meredith Carrera PA-C [address] [place] [address] Assigned Gastroenterology Provider 11/01/23 Neil Kent MD [address] [address] Dermatology 11/02/23 [place] [address] [place] [address] Neurological Surgery 12/26/23 Audrey Waite PA-C [address] [place] [address] Physician Director Of Diagnostic Imaging Dermatology 02/28/24 Valery Veronica PA-C 310604 [facility] [place] [address] Physician Director Of Diagnostic Imaging Dermatology 04/10/24 documented as of this encounter
--- OUTSIDE RECORDS SUMMARY | 2024-05-27 08:55 | XMS_ITS | Encounter Summary ---
Author Organization [facility] Address [address] [place] [address] Care Team Providers Care Armed Custom Protection Officer Name Role Phone Lita Oseguera Unavailable Unavailable Marija Edgar APRN FILM DRYING MACHINE OPERATOR Primary Care Provider + Chanelle Mccann SWATCH CHECKER CNM Unavailab le Kyara De La Fuente RN Unavailable [phone] Marija Edgar APRN FILM DRYING MACHINE OPERATOR Unavailable [phone] Mynor Broussard MD Unavailable Keisha Dotson MD Unavailable Mary Mejia Unavailable Unavailable Stacey Briones OTM CONSULTANT Unavailable Lesley Moody CHW Unavailable [phone] Mary Mejia Unavailable Unavailable Lita Oseguera Unavailable Unavailable Galo Burrell MD Unavailable Unavailable Cristina Wood Unavailable Lesley Moody CHW Unavailable Meredith Bedoya Unavailable Unavailable Cristina Wood Unavailable Diana Desir [facility] Unavailable Ruhland, Rain Lena PA-C Unavailable Summer Lara MD Unavailable [phone] Summer Lara MD Unavailable [phone] Summer Lara MD Unavailable [phone] Tavia Wyatt MD Unavailable Unavailable SemJohnny mckeon MD Unavailable [phone] Erica Farrell APRN FILM DRYING MACHINE OPERATOR Unavailable + Vikas Teresita Watson H Unavailable Tavia Wyatt MD Unavailable Unavailable Diana Desir [facility] Unavailable [phone] Rich Barrett MD Unavailable [phone] Neil Kent MD Unavailable Roney Story DPM Unavailable [phone] Erica Farrell APRN FILM DRYING MACHINE OPERATOR Unavailable + Diaan Desir [facility] Unavailable [phone] Jelena David Radha OD Unavailable Galo Burrell MD Unavailable Unavailable Livan Sharif MD Unavailable + Livan Sharif MD Unavailable + Catherine Cm MD Unavailable + Valery Veronica PA-C Unavailable [phone] Catherine Cm MD Unavailable + Johnny Murillo MD Unavailable +[phone] Brea Quinn APRN FILM DRYING MACHINE OPERATOR Unavailable [phone] Brea Quinn SWATCH CHECKER FILM DRYING MACHINE OPERATOR Unavailable [phone] Jose Francisco Johnson MD Unavailable Livan Sharif MD Unavailable + Catherine Cm MD Unavailable + Sydnie Martinez RN Unavailable Unavailable Alfonso Renteria MD Unavailable [phone] Esha Grimm PA-C Primary Care Provider Cheng Todd PA-C Unavailable Radha Lomeli APRN FILM DRYING MACHINE OPERATOR Unavailable FrankieJelena OD Unavailable Pao Joseph RN Unavailable Unavailable Esha Grimm PA-C Unavailable [phone] Valery Veronica PA-C Unavailable Rey Tay MD Unavailable Rocky Zepeda DO Unavailable Philip Dumont MD Unavailable [phone] Meredith Carrera PA-C Unavailable Neil Kent MD Unavailable Juan Pablo Emmanuel MD Unavailable [phone] Audrey Waite PA-C Unavailable JeremíasValery damon PA-C Unavailable [phone] Encounter Details Date Type Department Care Team (Late st Contact Info) Description 07/10/2020 MyC Medical Advice [facility] [place] [address] [place] [address] Mynor Broussard MD [address] [place] [address] Social History Tobacco Use Types Packs/Day [...] PM CDT Legal Sex Female 4:13 AM RUG SIZER Gender Identity Female 03/02/2021 5:45 PM CDT Sexual Orientation Straight 02/28/2020 12 :51 AM CDT COVID-19 Exposure Response Date Recorded In the last month, have you been in contact with someone who was confirmed or suspected to have Coronavirus / COVID-19? No / Unsure 06/24/2020 3:01 PM RUG SIZER documented as of this encounter Plan of Treatment Upcoming Encounters Date Type Department Care Team (Late st Contact Info) Description 05/31/2024 8:40 AM RUG SIZER Therapy Visit [address] [phone] Ingris Thompson, PT [facility] [address] [place] [address] 05/31/2024 3:30 PM RUG SIZER Office Visit [facility] [address] [phone] Audrey Díaz, Herminia Koo MD [address] [place] [address] 06/04/2024 3:30 PM RUG SIZER Office Visit [facility] [place] [address] [place] [address] [address] [place] [phone] Jelena David, SONJA [address] [place] [address] ENMA KING [address] 06/11/2024 10:30 AM RUG SIZER Appointment [facility] Res[facility] Therapy [address] [place] [phone] Spec, Nurse Only Med 06/18/2024 2:50 PM RUG SIZER Therapy Visit [address] [place] [phone] Ingris Thompson, PT [facility] [address] [facility] [address] [place], [place] [address] 06/21/2024 2:00 PM RUG SIZER Office Visit [facility] [place] [address] [facility], [address] [place] [phone] [place] [address] [place], [place] [address] Johnny Penn MD [address] [facility] [place], [place] [address] 06/25/2024 8:30 AM RUG SIZER Office Visit [address] [phone] Valery Veronica PA-C [address] [place] [address] 11/28/2024 7:45 AM CDT Virtual Visit [facility] [address] 4th [place] [phone] Meredith Carrera PA-C [address] [place] [address] [phone] documented as of this encounter Visit Diagnoses Not on filedocumented in this encounter Additional Health Concerns Infection Onset Date Last Indicated Resolved Time Rule Out COVID-19 07/30/2020 07/30/2020 07/30/2020 7:11 PM RUG SIZER Rule Out COVID-19 08/30/2020 08/30/2020 08/30/2020 5:05 PM RUG SIZER Rule Out COVID-19 09/24/2020 09/24/2020 09/24/2020 9:24 AM CDT Rule Out COVID-19 11/05/2020 11/05/2020 11/06/2020 1:09 PM CDT Rule Out COVID-19 05/11/2021 05/11/2021 05/13/2021 10:18 AM CDT Rule Out COVID-19 07/13/2021 07/13/2021 07/14/2021 3:04 PM RUG SIZER Rule Out COVID-19 07/18/2021 07/18/2021 07/20/2021 1:56 PM RUG SIZER COVID-19 07/18/2021 07/18/2021 08/08/2021 11:3 9 PM RUG SIZER Rule Out COVID-19 12/18/2021 12/18/2021 12/19/2021 11:34 AM CDT Rule Out COVID-19 02/24/2022 02/24/2022 02/25/2022 1:08 PM CDT Rule Out COVID-19 04/26/2022 04/26/2022 04/26/2022 6:47 AM CDT Rule Out COVID-19 05/17/2022 05/17/2022 05/17/2022 10:20 PM RUG SIZER Rule Out COVID-19 06/09/2022 06/09/2022 06/09/2022 9:35 AM RUG SIZER COVID-19 06/09/2022 06/09/2022 06/30/2022 11:4 1 PM RUG SIZER Rule Out COVID-19 11/10/2022 11/10/2022 11/11/2022 12:17 PM CDT Rule Out COVID-19 03/07/2023 03/07/2023 03/07/2023 1:20 PM CDT Rule Out COVID-19 12/26/2023 12/26/2023 12/26/2023 9:50 AM CDT Rule Out COVID-19 04/09/2024 04/09/2024 04/10/2024 6:48 PM CDT Assessment Noted Time PHQ-9 Depression Total Score: 9 06/25/ 20 7:04 AM RUG SIZER documented as of this encounter Care Teams Armed Custom Protection Officer Relationship Specialty Start Date End Date Marija Edgar APRN FILM DRYING MACHINE OPERATOR PCP - General Nurse Practitioner 04/30/20 04/14/23 Esha Grimm PA-C [address] [place] [phone] PCP - General Family Medicine 05/04/23 Lita Oseguera Personal Advocate & Liaison (PAL) 02/28/20 03/27/23 Chanelle Mccann APRN CNM [address] [place] [address] 200 [place], [place] [phone] Assigned OBGYN Provider 05/02/2005/09 Kyara De La Fuente, VJ Specialty Physician Compensation Analyst Neurology 06/04/20 03/05/21 Marija Edgar APRN FILM DRYING MACHINE OPERATOR Assigned PCP 06/08/20 04/29/23 Mynor Broussard MD [address] [facility] 500 [place] [address] Assigned Surgical Provider 06/01/20 11/28/21 Keisha Dotson MD 909 [place] [address] Assigned Neuroscience Provider 06/04/20 04/01/23 Mary Mejia Financial Resource Worker 08/07/20 08/21/20 Stacey Briones, OTM CONSULTANT Lead Physician Compensation Analyst Primary Care - CC 08/11/2012/30 Lesley [...] 02/09/21 02/09/21 Diana Desir, [facility] [address] [place], [place] [address] Pharmacist Pharmacist 04/17/21 Rain Galaviz PA-C [address] [place] [address] [address] [place], [place] [phone] Physician Brake Drum Molder Dermatology 04/28/21 Summer Lara MD [address] [place] [address] [phone] Assigned OBGYN Provider 05/10/2105/23 Summer Lara MD [address] [place] [address] [phone] Assigned OBGYN Provider 05/31/21 2 Summer Lara MD [address] [place] [address] [phone] Assigned OBGYN Provider 05/24/2105/30 Tavia Wyatt MD [address] [place] [address] Dermatology 07/14/21 Johnny Murillo MD [address] [place] [address] Assigned Musculoskeletal Provider 08/30/21 03/17/22 Erica Farrell APRN FILM DRYING MACHINE OPERATOR [address] [place] [address] Nurse Practitioner Cardiovascular Disease 09/09/21 Teresita Bean, [facility] [address] [place], [place] [phone] Pharmacist Pharmacist 09/24/21 09/29/21 Tavia Wyatt MD Assigned Surgical Provider 11/29/21 05/07/22 [facility] [address] [place] [address] Assigned MTM Pharmacist 01/02/22 Rich Barrett MD [address] [facility] [address] [place], [place] [address] Physician Ophthalmology 01/21/22 Neil Kent MD 500 [place], [place] 6[address] Dermatology 02/24/22 Roney Story DPM [address] [facility] [address] [place], [place] [phone] Assigned Musculoskeletal Provider 03/20/22 08/13/22 Erica Farrell APRN FILM DRYING MACHINE OPERATOR [address]00 [place] [address] Assigned Heart and Vascular Provider 04/03/22 04/16/22 [facility] 3033 [place] [address] Assigned MTM Pharmacist 04/07/[address] [address] [facility] [place] [address] Assigned Surgical Provider 05/08/22 10/08/22 Galo Burrell MD Assigned Heart and Vascular Provider 04/17/22 06/11/22 Livan Sharif MD [address] [place] [address] Cardiovascular Disease 05/14/22 Livan Sharif MD [address] [place] [address] Assigned Heart and Vascular Provider 06/12/22 07/23/22 Catherine Cm MD [address] [place] [id number] Cardiovascular Disease 07/21/22 Valery Veronica PAUcheC [address] [place] [address] Physician Brake Drum Molder Dermatology 07/21/22 Catherine Cm MD [address] [place] [address] [place] [address] Assigned Heart and Vascular Provider 07/24/22 11/05/22 Johnny Murillo MD [address] [place] [address] [phone] Assigned Musculoskeletal Provider 08/14/22 10/08/22 Brea Quinn APRN FILM DRYING MACHINE OPERATOR [address] [place] [address] 534135 Nurse Practitioner Dermatology 09/21/22 Brea Quinn APRN FILM DRYING MACHINE OPERATOR [address] [place] [address] [place] [address] Assigned Surgical Provider 10/09/22 05/01/24 [place] [address] [place] [address] Assigned Musculoskeletal Provider 10/09/22 05/01/24 Livan Sharif MD [address] [place] [address] [place] [address] Assigned Heart and Vascular Provider 11/06/22 11/12/22 Catherine Cm MD [address] [facility] [place] [address] Assigned Heart and Vascular Provider 11/13/22 05/27/23 Sydnie Martinez RN Personal Advocate & Liaison (PAL) Family Medicine 03/28/23 07/31/23 Alfonso Renteria MD [address] [facility] [address] [place] [address] Assigned Neuroscience Provider 04/02/23 Cheng Todd PA-C [address] [place] [address] Assigned PCP 04/30/23 07/15/23 Radha Lomeli, ARLENE FILM DRYING MACHINE OPERATOR [address] [facility] [address] [place], [place] [address] Assigned Heart and Vascular Provider 05/28/23 Jel[address] David OD [address] [facility] [address] [place] [phone] Ophthalmology 06/15/23 Pao Joseph, VJ Personal Advocate & Liaison (PAL) Nurse 08/01/23 11/07/23 Esha Grimm PA-C [address] [place] [address] Assigned PCP 07/16/23 Valery Veronica PA-C [address] [place] [address] Physician Brake Drum Molder Dermatology 09/19/23 Rey Tay MD [address] [place] [address]755 Gastroenterology 09/20/23 Rocky Zepeda DO [address] [place] [address] 690075 Physician Gastroenterology 09/20/23 Philip Dumont MD [address] [place] [address] Physician Ophthalmology 09/22/23 Meredith Carrera PA-C [address] [place] [address] 869475 Assigned Gastroenterology Provider 11/01/23 Neil Kent MD [address] 004140 MD Dermatology 11/02/23 [place] [address] [place] [address] 400397 Neurological Surgery 12/26/23 Audrey Waite PA-C 500 [place], [place] [address] Physician Brake Drum Molder Dermatology 02/28/24 Valery Veronica PA-C [address] [place] [address] Physician Brake Drum Molder Dermatology 04/10/24 documented as of this encounter
--- OUTSIDE RECORDS SUMMARY | 2024-05-27 08:55 | XMS_ITS | Encounter Summary ---
Author Organization [facility] Address [address] [place] [address] Care Team Providers Care Steel Hanger Name Role Phone Rakesh Cid PA-C Unavailable + Rakesh Cid PA-C Primary Care Provider Lita Oseguera Unavailable Unavailable Rakesh Cid PA-C Unavailable + Isaura Lamar RN Unavailable Unavailable Lita Oseguera Unavailable Unavailable Marija Edgar APRN PIPE COVERER Primary Care Provider + Chanelle Mccann APRN CN Unavailab le Lesley Moody CHW Unavailable Kyara De La Fuente RN Unavailable [phone] Marija Edgar APRN PIPE COVERER Unavailable [phone] Mynor Broussard MD Unavailable [phone] Keisha Dotson MD Unavailable [phone] Mary Mejia Unavailable Unavailable Stacey Briones PRODUCT DEMONSTRATOR Unavailable [phone] Lesley Moody CHW Unavailable [phone] Mary Mejia Unavailable Unavailable Lita Oseguera Unavailable Unavailable Galo Burrell MD Unavailable Unavailable Cristina Wood Unavailable Lesley Moody [facility] Unavailable Meredith Bedoya Unavailable Unavailable Cristina Wood Unavailable Diana Desir [facility] Unavailable [phone] Rain Galaviz PA-C Unavailable [phone] Summer Lara MD Unavailable [phone] Summer Lara MD Unavailable [phone] Summer Lara MD Unavailable [phone] Tavia Wyatt MD Unavailable Unavailable Johnny Murillo MD Unavailable [phone] Erica Farrell APRN PIPE COVERER Unavailable Teresita Bean [facility] Unavailable Tavia Wyatt MD Unavailable Unavailable Diana Desir [facility] Unavailable [phone] Rich Barrett MD Unavailable [phone] Neil Kent MD Unavailable Roney Story DPM Unavailable [phone] Erica Farrell APRN PIPE COVERER Unavailable + Diana Desir [facility] Unavailable [phone] Jelena David OD Unavailable Galo Burrell MD Unavailable Unavailable Livan Sharif MD Unavailable Livan Sharif MD Unavailable + Catherine Cm MD Unavailable + Valery Veronica PA-C Unavailable [phone] Catherine Cm MD Unavailable + Johnny Murillo MD Unavailable [phone] Brea Quinn SUPERVISOR CARDING PIPE COVERER Unavailable [phone] Brea Quinn SUPERVISOR CARDING PIPE COVERER Unavailable [phone] Jose Francisco Johnson MD Unavailable Livan Sharif MD Unavailable Catherine Cm MD Unavailable + Sydnie Martinez RN Unavailable Unavailable Alfonso Renteria MD Unavailable + [phone] Esha Grimm PA-C Primary Care Provider [phone] Chegn Todd PA-C Unavailable [phone] Armani Radha Sia SUPERVISOR CARDING PIPE COVERER Unavailable [phone] Jelena David OD Unavailable Pao Joseph RN Unavailable Unavailable Esha Grimm PA-C Unavailable [phone] Valery Veronica PA-C Unavailable Rey Tay MD Unavailable Rocky Zepeda DO Unavailable Philip Dumont MD Unavailable Meredith Carrera PA-C Unavailable [phone] Neil Kent MD Unavailable Juan Pablo Emmanuel MD Unavailable Audrey Waite PA-C Unavailable [phone] Valery Veronica PA-C Unavailable Reason for Visit * Reason Onset Date Comments Appointment 02/13/2020 Anxiety Encounter Details Date Type Department Care Team (Late st Contact Info) Description 02/13/[address] [facility] [address] [address] Rakesh Cid PA-C [address] [facility] [place] [address] Appointment (Anxiety) Social History Tobacco Use Types Packs/Day Years Used Date Smoking Tobacco: Former Cigarettes Q uit: 12/07/2019 Other Smokeless Tobacco: Never Comments:Vaping Alcohol Use Standard Drinks/Week Comments Not Currently 0 (1 standard drink = 0.6 oz pur e alcohol) PHQ-2 Answer Date Recorded PHQ-2 Score 0 09/11/2019 Comments No Sex and Gender Information Value Date Recorded Sex Assigned at Female 03/02/2021 5:45 PM CDT Legal Sex Female 4:13 AM MACARONI MAKER Gender Identity Female 03/02/2021 5:45 PM CDT Sexual Orientation Straight 02/28/2020 12 :51 AM CDT documented as of this encounter Miscellaneous Notes * Telephone Encounter - Agatha Forrester RN - 02/15/2020 2:28 PM CDT Xoopitt message sent to patient to schedule a [...] st Contact Info) Description 05/31/2024 8:40 AM MACARONI MAKER Therapy Visit [address] [place] [phone] Ingris Thompson, PT [facility] [address] [place] [address] 05/31/2024 3:30 PM MACARONI MAKER Office Visit [facility] [place] [address] [place] [phone] Audrey Díaz, Herminia Koo MD [address] [place] [address] 06/04/2024 3:30 PM MACARONI MAKER Office Visit [facility] [address] [facility] [address] [place] [phone] Jelena David, [address] [place] [address] [place] [address] 06/11/2024 10:30 AM MACARONI MAKER Appointment [facility] [address] [place] [phone] Spec, Nurse Only Med 06/18/2024 2:50 PM MACARONI MAKER Therapy Visit [facility] [address] [place] [phone] Ingris Thompson, PT [facility] [address] [place] [address] 06/21/2024 2:00 PM MACARONI MAKER Office Visit [facility] [place] [address] [place] [address], [address] [place] [phone] [place] [address] [place] [address] Johnny Penn MD [address] [place] [address] 06/25/2024 8:30 AM MACARONI MAKER Office Visit [address] [phone] Valery Veronica PA-C [address] [place] [phone] 11/28/2024 7:45 AM CDT Virtual Visit [facility] Gastroenterology Clinic [address] 4th [place] [phone] Meredith Carrera PA-C [address] [place] [address]195 documented as of this encounter Visit Diagnoses Not on filedocumented in this encounter Additional Health Concerns Infection Onset Date Last Indicated Resolved Time Rule Out COVID-19 07/30/2020 07/30/2020 07/30/2020 7:11 PM MACARONI MAKER Rule Out COVID-19 08/30/2020 08/30/2020 08/30/2020 5:05 PM MACARONI MAKER Rule Out COVID-19 09/24/2020 09/24/2020 09/24/2020 9:24 AM CDT Rule Out COVID-19 11/05/2020 11/05/2020 11/06/2020 1:09 PM CDT Rule Out COVID-19 05/11/2021 05/11/2021 05/13/2021 10:18 AM CDT Rule Out COVID-19 07/13/2021 07/13/2021 07/14/2021 3:04 PM MACARONI MAKER Rule Out COVID-19 07/18/2021 07/18/2021 07/20/2021 1:56 PM MACARONI MAKER COVID-19 07/18/2021 07/18/2021 08/08/2021 11:3 9 PM MACARONI MAKER Rule Out COVID-19 12/18/2021 12/18/2021 12/19/2021 11:34 AM CDT Rule Out COVID-19 02/24/2022 02/24/2022 02/25/2022 1:08 PM CDT Rule Out COVID-19 04/26/2022 04/26/2022 04/26/2022 6:47 AM CDT Rule Out COVID-19 05/17/2022 05/17/2022 05/17/2022 10:20 PM MACARONI MAKER Rule Out COVID-19 06/09/2022 06/09/2022 06/09/2022 9:35 AM MACARONI MAKER COVID-19 06/09/2022 06/09/2022 06/30/2022 11:4 1 PM MACARONI MAKER Rule Out COVID-19 11/10/2022 11/10/2022 11/11/2022 12:17 PM CDT Rule Out COVID-19 03/07/2023 03/07/2023 03/07/2023 1:20 PM CDT Rule Out COVID-19 12/26/2023 12/26/2023 12/26/2023 9:50 AM CDT Rule Out COVID-19 04/09/2024 04/09/2024 04/10/2024 6:48 PM CDT Assessment Noted Time PHQ-9 Depression Total Score: 1 09/11/19 20 1:42 PM MACARONI MAKER documented as of this encounter Care Teams Steel Hanger Relationship Specialty Start Date End Date Rakesh Cid PA-C [address] [place] [address] PCP - [address] Phys[address] Light Servicer Supervisor - Medical 05/14/19 04/29/20 Marija Edgar APRN CNP PCP - General Nurse Practitioner 04/30/20 04/14/23 Esha Grimm PA-C [address] [place] [address] PCP - General Family Medicine 05/04/23 Rakesh Cid PA-C [address] [place] [address] Assigned PCP 05/06/19 03/01/20 Lita Oseguera Personal Advocate & Liaison (PAL) 02/28/20 03/27/23 Rakesh Cid [place]-C [address] [place] [address] Assigned PCP 03/02/20 06/07/20 Isaura Lamar RN Personal Advocate & Liaison (PAL) Family Practice 04/03/20 04/06/20 Lita Oseguera Personal Advocate & Liaison (PAL) 04/07/20 04/29/20 Chanelle Mccann APRN CNM [address] [place] [address]277 Assigned OBGYN Provider 05/02/2005/09 Lesley Moody, W Community Health Worker 05/30/2005/12 Kyara De La Fuente, VJ Specialty Snow Maker Neurology 06/04/20 03/05/21 Marija Edgar APRN PIPE COVERER Assigned PCP 06/08/20 04/29/23 Mynor Broussard MD [address] [facility] [address] [place], [place] [address] Assigned Surgical Provider 06/01/20 11/28/21 Keisha Dotson MD [address] [place] [address] Assigned Neuroscience Provider 06/04/20 04/01/23 Nikiatimothy Mary Financial Resource Worker 08/07/20 08/21/20 Anselmo Stacey Kulwinder, [facility] Lead Snow Maker Primary Care - CC 08/11/2012/30 Lesley Moody, [facility] Community Health Worker 08/11/2010/01 Mary Mejia Financial Resource Worker 09/02/20 10/06/20 Lita Oseguera Personal Advocate & Liaison (PAL) Family Medicine 09/10/20 09/21/20 Galo Burrell MD Assigned Heart and Vascular Provider 10/05/20 04/02/22 Cristina Wood Financial Resource Worker 10/07/20 10/14/20 Lesley Moody, [facility] Community Health Worker 10/23/2012/30 Meredith Bedoya Financial Resource Worker 10/23/20 11/23/20 Cristina Wood Financial Resource Worker 02/09/21 02/09/21 Diana Desir, [facility] [address] [place] [address] Pharmacist Pharmacist 04/17/21 Rain Galaviz PA-C [address] [place] [address] [address] [facility] [place] [address] Light Servicer Supervisor Dermatology 04/28/21 Summer Lara MD [address] [place], [place] [address] Assigned OBGYN Provider 05/10/2105/23 Summer Lara MD [address] [place] [address] Assigned OBGYN Provider 05/31/21 Summer Lara MD [address] [place] [address] Assigned OBGYN Provider 05/24/2105/30 Tavia Wyatt MD [address] [place] [address] [facility] 07/14/21 Johnny Murillo MD [address] [facility] [address] [place] [address] Assigned Musculoskeletal Provider 08/30/21 03/17/22 Erica Farrell APRN PIPE COVERER [address] [place] [address] Nurse Practitioner Cardiovascular Disease 09/09/21 Teresita Bean, [facility] [address] [place] [phone] Pharmacist Pharmacist 09/24/21 09/29/21 Tavia Wyatt MD Assigned Surgical Provider 11/29/21 05/07/22 Diana Desir, [facility] [address] [place] [address] Assigned MTM Pharmacist 01/02/22 Rich Barrett MD [address] [address] Physician Ophthalmology 01/21/22 Neil Kent MD [address] [place] [address] Dermatology 02/24/22 Roney Story DPM [address] [facility] [address] [place] [address] Assigned Musculoskeletal Provider 03/20/22 08/13/22 Erica Farrell APRN PIPE COVERER [address] [place] [address] Assigned Heart and Vascular Provider 04/03/22 04/16/22 [facility] [address] [place] [address] Assigned MTM Pharmacist 04/07/22 Jelena David OD [address] [place] [address] Assigned Surgical Provider 05/08/22 10/08/22 Galo Burrell MD Assigned Heart and Vascular Provider 04/17/22 06/11/22 Livan Sharif MD [address] [place] [address] Cardiovascular Disease 05/14/22 Livan Sharif MD [address] [place] [address] Assigned Heart and Vascular Provider 06/12/22 07/23/22 Catherine Cm MD [address] [facility]00 [place] [address] Cardiovascular Disease 07/21/22 Valery Veronica PA-C [address] [place], [place] 07[address] Physician [address] Light Servicer Supervisor Dermatology 07/21/22 Catherine Cm MD [address] [facility]00 [place] [id number] Assigned Heart and Vascular Provider 07/24/22 11/05/22 Johnny Murillo MD [address] [place] [address] [id number] Assigned Musculoskeletal Provider 08/14/22 10/08/22 Brea Quinn APRN PIPE COVERER [address] [place] [address] [phone] Nurse Practitioner Dermatology 09/21/22 Brea Quinn APRN PIPE COVERER [address] [place] [address] ENMA DOE [id number] Assigned Surgical Provider 10/09/22 05/01/24 [place] [address] [facility] [place] [address] Assigned Musculoskeletal Provider 10/09/22 05/01/24 Livan Sharif MD [address] [facility]00 [place] [address] Assigned Heart and Vascular Provider 11/06/22 11/12/22 Catherine Cm MD [address] [place] [address] Assigned Heart and Vascular Provider 11/13/22 05/27/23 Sydnie Martinez RN Personal Advocate & Liaison (PAL) Family Medicine 03/28/23 07/31/23 Alfonso Renteria MD [address] [facility] [address] [place], [place] [address] Assigned Neuroscience Provider 04/02/23 Cheng Todd PA-C [address] [place] [address] [phone] Assigned PCP 04/30/23 07/15/23 Radha Lomeli APRN PIPE COVERER [address] [place], [place] [address] Assigned Heart and Vascular Provider 05/28/23 Jelena David OD [address] [place] [address] Ophthalmology 06/15/23 Pao Joseph, VJ Personal Advocate & Liaison (PAL) Nurse 08/01/23 11/07/23 Esha Grimm PA-C [address] [place] [phone] Assigned PCP 07/16/23 Valery Veronica PA-C [address] [place], [place] 815665 Physician Street Light Servicer Supervisor Dermatology 09/19/23 Rey Tay MD [address] [place], [place] [address] MD Gastroenterology 09/20/23 Rocky Zepeda DO [address] [place] [address] Physician Gastroenterology 09/20/23 Philip Dumont MD [address] [place] [address] Physician Ophthalmology 09/22/23 Meredith Carrera PA-C [address] [place] [address] Assigned Gastroenterology Provider 11/01/23 Neil Kent MD [address] [place] [address] Dermatology 11/02/23 [place] [address] [place] [address] Neurological Surgery 12/26/23 Audrey Waite PA-C [address] [place] [address] Light Servicer Supervisor Dermatology 02/28/24 Valery Veronica PA-C [address] [place] [address] Light Servicer Supervisor Dermatology 04/10/24 documented as of this encounter
--- OUTSIDE RECORDS SUMMARY | 2024-05-27 08:55 | XMS_ITS | Encounter Summary ---
Author Organization [facility] Address [address] [place] [address] Care Team Providers Care Machine Ironer Name Role Phone Rakesh Cid PA-C Primary Care Provider Lita Oseguera Unavailable Unavailable Rakesh Cid PA-C Unavailable [phone] Lita Oseguera Unavailable Unavailable Marija Edgar APRN UTILITY TECHNICIAN Primary Care Provider + Chanelle Mccann APRN CN Unavailab le Lesley Moody CHW Unavailable Kyara De La Fuente RN Unavailable [phone] Marija Edgar APRN UTILITY TECHNICIAN Unavailable [phone] Mynor Broussard MD Unavailable [phone] Keisha Dotson MD Unavailable [phone] Mary Mejia Unavailable Unavailable Stacey Briones PROPERTY AND EQUIPMENT CLERK Unavailable [phone] Lesley Moody CHKamryn Unavailable [phone] Mary Mejia Unavailable Unavailable Lita Oseguera Unavailable Unavailable Galo Burrell MD Unavailable Unavailable Cristina Wood Unavailable Lesley Moody [facility] Unavailable Meredith Bedoya Unavailable Unavailable Cristina Wood Unavailable Diana Desir [facility] Unavailable [phone] Rain Galaviz PA-C Unavailable Summer Lara MD Unavailable [phone] Summer Lara MD Unavailable [phone] Summer Lara MD Unavailable [phone] Tavia Wyatt MD Unavailable Unavailable Johnny Murillo MD Unavailable [phone] Erica Farrell APRN UTILITY TECHNICIAN Unavailable Teresita Bean [facility] Unavailable Tavia Wyatt MD Unavailable Unavailable Diana Desir [facility] Unavailable [phone] Rich Barrett MD Unavailable Neil Kent MD Unavailable Roney Story DPM Unavailable Erica Farrell APRN UTILITY TECHNICIAN Unavailable Diana Desir [facility] Unavailable [phone] Jelena David Unavailable Galo Burrell MD Unavailable Unavailable Livan Sharif MD Unavailable Livan Sharif MD Unavailable + Catherine Cm MD Unavailable + Valery Veronica-C Unavailable [phone] Catherine Cm MD Unavailable + Johnny Murillo MD Unavailable [phone], Brea P INCIDENT RESPONSE ENGINEER UTILITY TECHNICIAN Unavailable [phone] CheyenneBrea Jama INCIDENT RESPONSE ENGINEER UTILITY TECHNICIAN Unavailable Jose Francisco Johnson MD Unavailable Livan Sharif MD Unavailable Catherine Cm MD Unavailable + Sydnie Martinez RN Unavailable Unavailable Alfonso Renteria MD Unavailable [phone] Esha Grimm PA-C Primary Care Provider Cheng Todd PA-C Unavailable Armani Radha Sia INCIDENT RESPONSE ENGINEER UTILITY TECHNICIAN Unavailable Frankie Jelena Garcia OD Unavailable [phone] Pao Joseph RN Unavailable Unavailable Esha Grimm PA-C Unavailable [phone] Valery Veronica PA-C Unavailable Rey Tay MD Unavailable Rocky Zepeda DO Unavailable Philip Dumont MD Unavailable [phone] Meredith Carrera PA-C Unavailable Neil Kent MD Unavailable Juan Pablo Emmanuel MD Unavailable Audrey Waite PA-C Unavailable [phone] Valery Veronica PA-C Unavailable Encounter Details Date Type Department Care Team (Late st Contact Info) Description 04/25/2020 [facility] [address] [address] Rakesh Cid PA-C [address] [place] [address] Social History Tobacco Use Types [...] PM CDT Legal Sex Female 4:13 AM RESIDENT MEDICAL OFFICER Gender Identity Female 03/02/2021 5:45 PM [...] st Contact Info) Description 05/31/2024 8:40 AM RESIDENT MEDICAL OFFICER Therapy Visit [facility] [address] [place] [phone] Ingris Thompson, PT [facility] [address] [place] [address] [address] [place] [address] 05/31/2024 3:30 PM RESIDENT MEDICAL OFFICER Office Visit [facility] [address] [address] Aurdey Díaz, Herminia Koo MD [address] [place] [address] 06/04/2024 3:30 PM RESIDENT MEDICAL OFFICER Office Visit [address] [place] [phone] Jelena David, OD [address] [place] [address] [place] [address] 06/11/2024 10:30 AM RESIDENT MEDICAL OFFICER Appointment [facility] [address] [place] [phone] Spec, Nurse Only Med 06/18/2024 2:50 PM RESIDENT MEDICAL OFFICER Therapy Visit [facility] [place] [address] [facility] [address] [place] [phone] Ingris Thompson, PT [facility] [address] [facility] [address] [place], [place] [address] 06/21/2024 2:00 PM RESIDENT MEDICAL OFFICER Office Visit [facility] [place] [address] [facility] [address] [place] [phone] [place] [address] [place], [place] [address] Johnny Penn MD [address] [place], [place] [address] 06/25/2024 8:30 AM RESIDENT MEDICAL OFFICER Office Visit [address] [phone] Valery Veronica PA-C [address] [place] [phone] 11/28/2024 7:45 AM CDT Virtual Visit [facility] [address] 4th [place] [phone] Meredith Carrera PA-C [address] [place] [address] [phone] documented as of this encounter Visit Diagnoses Not on filedocumented in this encounter Additional Health Concerns Infection Onset Date Last Indicated Resolved Time Rule Out COVID-19 07/30/2020 07/30/2020 07/30/2020 7:11 PM RESIDENT MEDICAL OFFICER Rule Out COVID-19 08/30/2020 08/30/2020 08/30/2020 5:05 PM RESIDENT MEDICAL OFFICER Rule Out COVID-19 09/24/2020 09/24/2020 09/24/2020 9:24 AM CDT Rule Out COVID-19 11/05/2020 11/05/2020 11/06/2020 1:09 PM CDT Rule Out COVID-19 05/11/2021 05/11/2021 05/13/2021 10:18 AM CDT Rule Out COVID-19 07/13/2021 07/13/2021 07/14/2021 3:04 PM RESIDENT MEDICAL OFFICER Rule Out COVID-19 07/18/2021 07/18/2021 07/20/2021 1:56 PM RESIDENT MEDICAL OFFICER COVID-19 07/18/2021 07/18/2021 08/08/2021 11:3 9 PM RESIDENT MEDICAL OFFICER Rule Out COVID-19 12/18/2021 12/18/2021 12/19/2021 11:34 AM CDT Rule Out COVID-19 02/24/2022 02/24/2022 02/25/2022 1:08 PM CDT Rule Out COVID-19 04/26/2022 04/26/2022 04/26/2022 6:47 AM CDT Rule Out COVID-19 05/17/2022 05/17/2022 05/17/2022 10:20 PM RESIDENT MEDICAL OFFICER Rule Out COVID-19 06/09/2022 06/09/2022 06/09/2022 9:35 AM RESIDENT MEDICAL OFFICER COVID-19 06/09/2022 06/09/2022 06/30/2022 11:4 1 PM RESIDENT MEDICAL OFFICER Rule Out COVID-19 11/10/2022 11/10/2022 11/11/2022 12:17 PM CDT Rule Out COVID-19 03/07/2023 03/07/2023 03/07/2023 1:20 PM CDT Rule Out COVID-19 12/26/2023 12/26/2023 12/26/2023 9:50 AM CDT Rule Out COVID04/09/2024 04/09/2024 04/10/2024 6:48 PM CDT Assessment Noted Time PHQ-9 Depression Total Score: 12 020 2:40 PM CDT documented as of this encounter Care Teams Machine Ironer Relationship Specialty Start Date End Date Rakesh Cid PA-C PCP - General Physician Soa Integration Developer - Medical 05/14/19 04/29/20 Marija Edgar APRN UTILITY TECHNICIAN [address] [place] [address] PCP - General Nurse Practitioner 04/30/20 04/14/23 Esha Grimm PA-C [address] [place] [phone] PCP - General Family Medicine 05/04/23 Lita Oseguera Personal Advocate & Liaison (PAL) 02/28/20 03/27/23 Rakesh Cid PA-C [address] [place] [address] Assigned PCP 03/02/20 06/07/20 Lita Oseguera Personal Advocate & Liaison (PAL) 04/07/20 04/29/20 Chanelle Mccann APRN [place] [address] 050217 Assigned OBGYN Provider 05/02/2005/09 Lesley Moody, CHW Community Health Worker 05/30/2005/12 Kyara De La Fuente, RN Specialty Apiculture Teacher Neurology 06/04/20 03/05/21 Marija Edgar APRN UTILITY TECHNICIAN [address] [place] [address] Assigned PCP 06/08/20 04/29/23 Mynor Broussard MD [address] [place] [address] Assigned Surgical Provider 06/01/20 11/28/21 Keisha Dotson MD [address] [place], [place] 544295 Assigned Neuroscience Provider 06/04/20 04/01/23 Mary Mejia Financial Resource Worker 08/07/20 08/21/20 Stacey Briones, [facility] Lead Apiculture Teacher Primary Care - CC 08/11/2012/30 Lesley Moody, [facility] Community Health Worker 08/11/2010/01 Mary Mejia Financial Resource Worker 09/02/20 10/06/20 Lita Oseguera Personal Advocate & Liaison (PAL) Family Medicine 09/10/20 09/21/20 Galo Burrell MD Assigned Heart and Vascular Provider 10/05/20 04/02/22 Cristina Wood Financial Resource Worker 10/07/20 10/14/20 Lesley Moody, [facility] Community Health Worker 10/23/2012/30 Meredith Bedoya Financial Resource Worker 10/23/20 11/23/20 Cristina Wood Financial Resource Worker 02/09/21 02/09/21 [facility] [address] [place] [address] Pharmacist Pharmacist 04/17/21 Rain Galaviz PA-C [address] [place] [address] Physician Soa Integration Developer Dermatology 04/28/21 Summer Lara MD [address] [place] [address] Assigned OBGYN Provider 05/10/2105/23 Summer Lara MD [address] [place] [address] Assigned OBGYN Provider 05/31/21 Summer Lara MD [address] [place] [address] [place] [address] Assigned OBGYN Provider 05/24/2105/30 Tavia Wyatt MD [address] [place] [address] [place] [address] Dermatology 07/14/21 Johnny Murillo MD [address] [place] [address] Assigned Musculoskeletal Provider 08/30/21 03/17/22 Erica Farrell APRN UTILITY TECHNICIAN [address] [facility] [address] [place] [address] Nurse Practitioner Cardiovascular Disease 09/09/21 Teresita Bean, [facility] [address] [place] [address] Pharmacist Pharmacist 09/24/21 09/29/21 Tavia Wyatt MD Assigned Surgical Provider 11/29/21 05/07/22 Diana eDsir, [facility] [address] [place] [address] Assigned MTM Pharmacist 01/02/22 Rich Barrett MD [address] [phone] Physician Ophthalmology 01/21/22 Neil Kent MD 500 [place] [address] Dermatology 02/24/22 Roney Story DPM [address] [facility] [address] [place] [address] Assigned Musculoskeletal Provider 03/20/22 08/13/22 Erica Farrell APRN UTILITY TECHNICIAN [address] [place] [address] Assigned Heart and Vascular Provider 04/03/22 04/16/22 Diana Desir, [facility] [address] [place] [address] Assigned MTM Pharmacist 04/07/22 Jelena David OD [address] [facility] [place] [address] Assigned Surgical Provider 05/08/22 10/08/22 Galo Burrell MD Assigned Heart and Vascular Provider 04/17/22 06/11/22 Livan Sharif MD [address], [facility] [address] [place] [address] Cardiovascular Disease 05/14/22 Livan Sharif MD [address], [address] [place] [address] Assigned Heart and Vascular Provider 06/12/22 07/23/22 Catherine Cm MD [address] [place], [place] 414[address] Cardiovascular Disease 07/21/22 Valery Veronica, PA-C [address] [place] [phone] Physician Soa Integration Developer Dermatology 07/21/22 Catherine Cm MD [address] [place] 126365 Assigned Heart and Vascular Provider 07/24/22 11/05/22 Johnny Murillo MD [facility] [address] 826[address] Assigned Musculoskeletal Provider 08/14/22 10/08/22 Brea Quinn APRN UTILITY TECHNICIAN [address] [place] [address] 219205 Nurse Practitioner Dermatology 09/21/22 Brea Quinn APRN UTILITY TECHNICIAN [address] [place] [address] Assigned Surgical Provider 10/09/22 05/01/24 [place] [address] [place] [address], [place] [address] Assigned Musculoskeletal Provider 10/09/22 05/01/24 Livan Sharif MD [address] [facility] [address] [place] [phone] Assigned Heart and Vascular Provider 11/06/22 11/12/22 Catherine Cm MD [address] [facility] [place] [address] Assigned Heart and Vascular Provider 11/13/22 05/27/23 Sydnie Martinez, VJ Personal Advocate & Liaison (PAL) Family Medicine 03/28/23 07/31/23 Alfonso Renteria MD [address] [facility] 200 [place] [address] Assigned Neuroscience Provider 04/02/23 Cheng Todd PA-C [address] [place] [address] Assigned PCP 04/30/23 07/15/23 Radha Lomeli APRN UTILITY TECHNICIAN [address] [place] [address] Assigned Heart and Vascular Provider 05/28/23 Jelena David OD [address] [place] [address] MD Ophthalmology 06/15/23 Pao Joseph, RN Personal Advocate & Liaison (PAL) Nurse 08/01/23 11/07/23 Esha Grimm PA-C [address] [place] [address] Assigned PCP 07/16/23 Valery Veronica PA-C [address] [place] [address] 829055 Physician Soa Integration Developer Dermatology 09/19/23 Rey Tay MD [address] [place] [address] [phone] MD Gastroenterology 09/20/23 Rocky Zepeda DO [address] [place] [address] 040055 Physician Gastroenterology 09/20/23 Philip Dumont MD [address] [place] [address] 484015 Physician Ophthalmology 09/22/23 Meredith Carrera PA-C [address] [place] [address] 921785 Assigned Gastroenterology Provider 11/01/23 Neil Kent MD [address] [place] [address] Dermatology 11/02/23 [place] [address] [place] [address] Neurological Surgery 12/26/23 Audrey Waite PA-C 500 [place] [address] Physician Soa Integration Developer Dermatology 02/28/24 Valery Veronica PA-C [address] [place] [address] Physician Soa Integration Developer Dermatology 04/10/24 documented as of this encounter
--- OUTSIDE RECORDS SUMMARY | 2024-05-27 08:55 | XMS_ITS | Encounter Summary ---
Author Organization [facility] Address [address] [place] [address] Care Team Providers Care Credit Specialist Name Role Phone Lita Oseguera Unavailable Unavailable Rakesh Cid PA-C Unavailable Marija Edgar FILM MASKER INTERMEDIATE PROJECT MANAGER Primary Care Provider + Chanelle Mccann FILM MASKER CN Unavailab le Lesley Moody CHW Unavailable [phone] Kyara De La Fuente RN Unavailable Marija Edgar APRN INTERMEDIATE PROJECT MANAGER Unavailable Mynor Broussard MD Unavailable [phone] Keisha Dotson MD Unavailable Mary Mejia Unavailable Unavailable Stacey Briones WIDE AREA NETWORK ENGINEER Unavailable Lesley Moody CHW Unavailable Mary Mejia Unavailable Unavailable Lita Oseguera Unavailable Unavailable Galo Burrell MD Unavailable Unavailable Cristina Wood Unavailable Lesley Moody CHW Unavailable Meredith Bedoya Unavailable Unavailable Cristina Wood Unavailable DesirDiana [facility] Unavailable [phone] Rain Galaviz PA-C Unavailable [phone] Summer Lara MD Unavailable [phone] Summer Lara MD Unavailable [phone] Summer Lara MD [phone] Tavia Wyatt MD Unavailable Unavailable Johnny Murillo MD Unavailable [phone] Erica Farrell FILM MASKER INTERMEDIATE PROJECT MANAGER Unavailable Vikas Teresita Jesus Walter [facility] Unavailable Tavia Wyatt MD Unavailable Unavailable Diana Desir [facility] Unavailable [phone] Rich Barrett MD Unavailable [phone] Neil Kent MD Unavailable Roney Story DPM Unavailable Erica Farrell FILM MASKER INTERMEDIATE PROJECT MANAGER Unavailable Diana Desir [facility] Unavailable [phone] Jelena David OD Unavailable Galo Burrell MD Unavailable Unavailable Livan Sharif MD Unavailable + Livan Sharif MD Unavailable + Catherine Cm MD Unavailable + Valery Veronica PA-C Unavailable [phone] Catherine Cm MD Unavailable + Johnny Murillo MD Unavailable [phone] Brea Quinn FILM MASKER INTERMEDIATE PROJECT MANAGER Unavailable [phone] Brea Quinn FILM MASKER INTERMEDIATE PROJECT MANAGER Unavailable [phone] Jose Francisco Johnson MD Unavailable Livan Sharif MD Unavailable Catherine Cm MD Unavailable + Sydnie Martinez RN Unavailable Unavailable Alfonso Renteria MD Unavailable [phone] Esha Grimm PA-C Primary Care Provider [phone] Cheng Todd PA-C Unavailable Radha Lomeli APRN INTERMEDIATE PROJECT MANAGER Unavailable Jelena David OD Unavailable Pao Joseph RN Unavailable Unavailable Esha Grimm PA-C Unavailable [phone] Valery Veronica PA-C Unavailable [phone] Rey Tay MD Unavailable Rocky Zepeda DO Unavailable Philip Dumont MD Unavailable Meredith Carrera PA-C Unavailable [phone] Neil Kent MD Unavailable Juan Pablo Emmanuel MD Unavailable Audrey Waite PA-C Unavailable JeremíasValery damon PA-C Unavailable Reason for Visit * Reason Onset Date Comments Referral 05/19/2020 Encounter Details Date Type Department Care Team (Late st Contact Info) Description 05/19/2020 Telephone [facility] [address], [address] [place] [address] Unknown Referral Social History Tobacco [...] PM CDT Legal Sex Female 4:13 AM GRINDER SETUP OPERATOR Gender Identity Female 03/02/2021 5:45 PM CDT Sexual Orientation Straight 02/28/2020 12 :51 AM CDT COVID-19 Exposure Response Date Recorded In the last month, have you been in contact with someone who was confirmed or suspected to have Coronavirus / COVID-19? No / Unsure 05/12/2020 9:03 AM GRINDER SETUP OPERATOR documented as of this encounter Miscellaneous Notes * Telephone Encounter - Jolene Mcpherson - 05/19/2020 2:02 PM CST [facility] Phone Message May a detailed message be left on voicemail: yes Reason for Call: Appointment Intake Referring Provider Name: Marija Edgar APRN CNP in FAMILY PRACTICE Diagnosis and/or Symptoms: History of Seizures Being referred to [facility]. Please review. Thanks. Action Taken: Other: [facility] Travel Screening: Not Applicable DER SETUP OPERATOR documented in this encounter Plan of Treatment Upcoming Encounters Date Type Department Care Team (Late st Contact Info) Description 05/31/2024 8:40 AM GRINDER SETUP OPERATOR Therapy Visit [facility] [address] [place] [phone] Ingris Thompson, PT [facility] [address] [place] [address] [address] [place] [address] 05/31/2024 3:30 PM GRINDER SETUP OPERATOR Office Visit [facility] [address] [phone] Audrey Díaz, Herimnia Koo MD [address] [place] [address] 06/04/2024 3:30 PM GRINDER SETUP OPERATOR Office Visit [address] [place] [address] [place], [place] [address] [facility] [place] [address] 06/11/2024 10:30 AM GRINDER SETUP OPERATOR Appointment [facility] Res[facility] [address] [place] [phone] Spec, Nurse Only Med 06/18/2024 2:50 PM GRINDER SETUP OPERATOR Therapy Visit [facility] [place] [address] [place] [address] [address] [place] [phone] Ingris Thompson, PT [facility] [address] [facility] [address] [place] [address] 06/21/2024 2:00 PM GRINDER SETUP OPERATOR Office Visit [facility] [address] [place] [address], [address] [place] [phone] [place] [address] [place] [phone] Johnny Penn MD [address] [place] [address] 06/25/2024 8:30 AM GRINDER SETUP OPERATOR Office Visit [address] [phone] Valery Veronica PA-C [address] [place] [address] 11/28/2024 7:45 AM CDT Virtual Visit [facility] G[facility] [place] [address] [facility] 4th [place] [phone] Meredith Carrera PA-C [address] [place] [address] documented as of this encounter Visit Diagnoses Not on filedocumented in this encounter Additional Health Concerns Infection Onset Date Last Indicated Resolved Time Rule Out COVID-19 07/30/2020 07/30/2020 07/30/2020 7:11 PM GRINDER SETUP OPERATOR Rule Out COVID-19 08/30/2020 08/30/2020 08/30/2020 5:05 PM GRINDER SETUP OPERATOR Rule Out COVID-19 09/24/2020 09/24/2020 09/24/2020 9:24 AM CDT Rule Out COVID-19 11/05/2020 11/05/2020 11/06/2020 1:09 PM CDT Rule Out COVID-19 05/11/2021 05/11/2021 05/13/2021 10:18 AM CDT Rule Out COVID-19 07/13/2021 07/13/2021 07/14/2021 3:04 PM GRINDER SETUP OPERATOR Rule Out COVID-19 07/18/2021 07/18/2021 07/20/2021 1:56 PM GRINDER SETUP OPERATOR COVID-19 07/18/2021 07/18/2021 08/08/2021 11:3 9 PM GRINDER SETUP OPERATOR Rule Out COVID-19 12/18/2021 12/18/2021 12/19/2021 11:34 AM CDT Rule Out COVID-19 02/24/2022 02/24/2022 02/25/2022 1:08 PM CDT Rule Out COVID-19 04/26/2022 04/26/2022 04/26/2022 6:47 AM CDT Rule Out COVID-19 05/17/2022 05/17/2022 05/17/2022 10:20 PM GRINDER SETUP OPERATOR Rule Out COVID-19 06/09/2022 06/09/2022 06/09/2022 9:35 AM GRINDER SETUP OPERATOR COVID-19 06/09/2022 06/09/2022 06/30/2022 11:4 1 PM GRINDER SETUP OPERATOR Rule Out COVID-19 11/10/2022 11/10/2022 11/11/2022 12:17 PM CDT Rule Out COVID-19 03/07/2023 03/07/2023 03/07/2023 1:20 PM CDT Rule Out COVID-19 12/26/2023 12/26/2023 12/26/2023 9:50 AM CDT Rule Out COVID-19 04/09/2024 04/09/2024 04/10/2024 6:48 PM CDT Assessment Noted Time PHQ-9 Depression Total Score: 6 08/28/19 21 7:05 AM GRINDER SETUP OPERATOR documented as of this encounter Care Teams Credit Specialist Relationship Specialty Start Date End Date Marija Edgar APRN INTERMEDIATE PROJECT MANAGER [address] [place] [address] PCP - General Nurse Practitioner 04/30/20 04/14/23 Esha Grimm PA-C [address] [place] [phone] PCP - General Family Medicine 05/04/23 Lita Oseguera Personal Advocate & Liaison (PAL) 02/28/20 03/27/23 Rakesh Cid PA-C [address] [place] [address] Assigned PCP 03/02/20 06/07/20 Chanelle Mccann APRN CNM [address] [id number] Assigned OBGYN Provider 05/02/2005/09 Lesley Moody CHW Community Health Worker 05/30/2005/12 Kyara De La Fuente, RN Specialty Door Patcher Neurology 06/04/20 03/05/21 Marija Edgar APRN INTERMEDIATE PROJECT MANAGER [address] [place] [address] Assigned PCP 06/08/20 04/29/23 Mnyor Broussard MD [address] [place], [place] [address] Assigned Surgical Provider 06/01/20 11/28/21 Keisha Dotson MD [address] [place] [address] Assigned Neuroscience Provider 06/04/20 04/01/23 Mary Mejia Financial Resource Worker 08/07/20 08/21/20 Stacey Briones, [facility] [address] Lead Door Patcher Primary Care - CC 08/11/2012/30 Lesley Moody, [facility] Community Health Worker 08/11/2010/01 Mary Mejia [...] Diana Desir, [facility] [address] [place] [address] Pharmacist Pharmacist 04/17/21 Rain Galaviz PA-C [address] [place] [address] [place] [address] Physician Workday Director Dermatology 04/28/21 Summer Lara MD [address] [facility] [place] [address] Assigned OBGYN Provider 05/10/2105/23 Summer Lara MD [address] [place] [address] [place] [address] Assigned OBGYN Provider 05/31/21 2 Summer Lara MD [address] [place] [address] Assigned OBGYN Provider 05/24/2105/30 Tavia Wyatt MD [address] [place] [address] [place] [address] Dermatology 07/14/21 Johnny Murillo MD [facility] [facility] [address] [place] [address] Assigned Musculoskeletal Provider 08/30/21 03/17/22 Erica Farrell APRN INTERMEDIATE PROJECT MANAGER [address] [facility] [address] [place] [address] Nurse Practitioner Cardiovascular Disease 09/09/21 Teresita Bean [facility] [address] [place] [phone] Pharmacist Pharmacist 09/24/21 09/29/21 Tavia Wyatt MD Assigned Surgical Provider 11/29/21 05/07/22 Diana Desir, [facility] [address] [place] [address] Assigned MTM Pharmacist 01/02/22 Rich Barrett MD [address] 334[address] Physician Ophthalmology 01/21/22 Neil Kent MD [address] [place], [place] 486915 Dermatology 02/24/22 Roney Story DPM [address] [facility] [address] [place] [address] Assigned Musculoskeletal Provider 03/20/22 08/13/22 Erica Farrell APRN INTERMEDIATE PROJECT MANAGER [address] [place] [address] Assigned Heart and Vascular Provider 04/03/22 04/16/22 Diana Desir, [facility] [address] [place] [address] Assigned MTM Pharmacist 04/07/22 Jelena David OD [address] [facility] [address] Assigned Surgical Provider 05/08/22 10/08/22 Galo Burrell MD Assigned Heart and Vascular Provider 04/17/22 06/11/22 Livan Sharif MD [address], [facility] [address] [place] [address] Cardiovascular Disease 05/14/22 Livan Sharif MD [address], [facility] [address] [place] [address] Assigned Heart and Vascular Provider 06/12/22 07/23/22 Catherine mC MD [address] [facility] [place] [address] Cardiovascular Disease 07/21/22 Valery Veronica, PAUcheC [address] [place] [address] 677335 Physician Workday Director Dermatology 07/21/22 Catherine Cm MD [address] [facility] [address] [place] 815125 Assigned Heart and Vascular Provider 07/24/22 11/05/22 Johnny Murillo MD [address] [place] [address] Assigned Musculoskeletal Provider 08/14/22 10/08/22 Brea Quinn APRN INTERMEDIATE PROJECT MANAGER [address] [place] [address] Nurse Practitioner Dermatology 09/21/22 Brea Quinn APRN INTERMEDIATE PROJECT MANAGER [address] [place], [place] [address]sia [place] [address] Assigned Surgical Provider 10/09/22 05/01/24 [place] [address] [place] [address] Assigned Musculoskeletal Provider 10/09/22 05/01/24 Livan Sharif MD [address] [facility] [address] [place] [address] Assigned Heart and Vascular Provider 11/06/22 11/12/22 Catherine Cm MD [address] [facility] [address] [place] 456995 Assigned Heart and Vascular Provider 11/13/22 05/27/23 Sydnie Martinez RN Personal Advocate & Liaison (PAL) Family Medicine 03/28/23 07/31/23 Alfonso Renteria MD [address] [facility] [address] [place] [address] Assigned Neuroscience Provider 04/02/23 Cheng Todd PA-C [address] [place] [address] Assigned PCP 04/30/23 07/15/23 Radha Lomeli APRN INTERMEDIATE PROJECT MANAGER [address] [place] [address] Assigned Heart and Vascular Provider 05/28/23 Jelena David OD [address] [facility] [address] MD Ophthalmology 06/15/23 Pao Joseph, RN Personal Advocate & Liaison (PAL) Nurse 08/01/23 11/07/23 Esha Grimm PA-C [address] [place] [phone] Assigned PCP 07/16/23 Valery Veronica PA-C [address] [place] [address] 897265 Physician Workday Director Dermatology 09/19/23 Rey Tay MD [address] [place] [address] 986135 MD Gastroenterology 09/20/23 Rocky Zepeda DO [address] [place] [address] 354035 Physician Gastroenterology 09/20/23 Philip Dumont MD [address] [place] [address] 042305 Physician Ophthalmology 09/22/23 Meredith Carrera PA-C [address] [place] [address] 577065 Assigned Gastroenterology Provider 11/01/23 Neil Kent MD [address] [address] Dermatology 11/02/23 [place] [address] [place] [address] Neurological Surgery 12/26/23 Audrey Waite PA-C 500 [place] [address] Physician Workday Director Dermatology 02/28/24 Valery Veronica PA-C 336342 [address] [place] [address] Physician Workday Director Dermatology 04/10/24 documented as of this encounter
--- OUTSIDE RECORDS SUMMARY | 2024-05-27 08:55 | XMS_ITS | Encounter Summary ---
Author Organization [facility] Address [address] [place] [address] Care Team Providers Care Gear Shaper Set Up Operator Name Role Phone Lita Oseguera Unavailable Unavailable Rakesh Cid PA-C Unavailable Marija Edgar DOCTOR OF NAPRAPATHIC MEDICINE BROTH MIXER Primary Care Provider + Chanelle Mccann DOCTOR OF NAPRAPATHIC MEDICINE CN Unavailab le Lesley Moody CHW Unavailable Kyara De La Fuente RN Unavailable Marija Edgar APRN BROTH MIXER Unavailable Mynor Broussard MD Unavailable [phone] Keisha Dotson MD Unavailable Mary Mejia Unavailable Unavailable Stacey Briones MANAGER ENDOSCOPY Unavailable Lesley Moody CHW Unavailable Mary Mejia Unavailable Unavailable Lita Oseguera Unavailable Unavailable Galo Burrell MD Unavailable Unavailable Cristina Wood Unavailable Lesley Moody CHW Unavailable Meredith Bedoya Unavailable Unavailable Cristina Wood Unavailable DesirDiana [facility] Unavailable [phone] Rain Galaviz PA-C Unavailable [phone] Summer Lara MD Unavailable [phone] Summer Lara MD Unavailable [phone] Summer Lara MD Unavailable [phone] Tavia Wyatt MD Unavailable Unavailable Johnny Murillo MD Unavailable [phone] Erica Farrell DOCTOR OF NAPRAPATHIC MEDICINE BROTH MIXER Unavailable Vikas Teresita Jesus Walter [facility] Unavailable Tavia Wyatt MD Unavailable Unavailable Diana Desir [facility] Unavailable [phone] Rich Barrett MD Unavailable [phone] Neil Kent MD Unavailable Roney Story DPM Unavailable Erica Farrell DOCTOR OF NAPRAPATHIC MEDICINE BROTH MIXER Unavailable Diana Desir [facility] Unavailable [phone] Jelena David OD Unavailable Galo Burrell MD Unavailable Unavailable Livan Sharif MD Unavailable + Livan Sharif MD Unavailable + Catherine Cm MD Unavailable + Valery Veronica PA-C Unavailable [phone] Catherine Cm MD Unavailable + Johnny Mruillo MD Unavailable [phone] Brea Quinn DOCTOR OF NAPRAPATHIC MEDICINE BROTH MIXER Unavailable [phone] Brea Quinn DOCTOR OF NAPRAPATHIC MEDICINE BROTH MIXER Unavailable [phone] Jose Francisco Johnson MD Unavailable Livan Sharif MD Unavailable Catherine Cm MD Unavailable + Sydnie Martinez RN Unavailable Unavailable Alfonso Renteria MD Unavailable [phone] Esha Grimm PA-C Primary Care Provider Cheng Todd PA-C Unavailable Radha Lomeli APRN BROTH MIXER Unavailable Jelena David OD Unavailable [phone] Pao Joseph RN Unavailable Unavailable Esha Grimm PA-C Unavailable [phone] Valery Veronica PA-C Unavailable Rey Tay MD Unavailable Rocky Zepeda DO Unavailable Philip Dumont MD Unavailable Meredith Carrera PA-C Unavailable Neil Kent MD Unavailable Juan Pablo Emmanuel MD Unavailable Audrey Waite PA-C Unavailable [phone] JeremíasValery damon PA-C Unavailable Encounter Details Date Type Department Care Team (Late st Contact Info) Description 06/05/2020 My[facility] Medical Advice [address] [phone] Marija Edgar APRN BROTH MIXER [address] [place] [phone] Social History Tobacco Use Types Packs/Day [...] PM CDT Legal Sex Female 4:13 AM TUG HAND Gender Identity Female 03/02/2021 5:45 PM CDT Sexual Orientation Straight 02/28/2020 12 :51 AM CDT COVID-19 Exposure Response Date Recorded In the last month, have you been in contact with someone who was confirmed or suspected to have Coronavirus / COVID-19? No / Unsure 06/04/2020 10:30 AM TUG HAND documented as of this encounter Miscellaneous Notes * Telephone Encounter - Marija Edgar APRN CNP - 06/09/2020 9:38 AM TUG HAND Those referrals have been placed. The mental health attempted call but patient did not answer. Please have patient check voicemail's or await one further follow-up call. They will call her to set up Holter monitor. Thank you Marija Edgar APRN BROTH MIXER on 06/09/2020 at 9:40 AM HAND documented in this encounter Plan of Treatment Upcoming Encounters Date Type Department Care Team (Late st Contact Info) Description 05/31/2024 8:40 AM TUG HAND Therapy Visit [facility] [address] [place] [phone] Ingris Thompson, PT [facility] [address] [place] [address] [address] [place] [address] 05/31/2024 3:30 PM TUG HAND Office Visit [facility] [address] [phone] Audrey Díaz, Herminia Koo MD [address] [place] [address] 06/04/2024 3:30 PM TUG HAND [facility] [address] [facility] [address] [place] [phone] Jelena David, [place] [address] [facility] [place] [address] 06/11/2024 10:30 AM TUG HAND Appointment [facility] Res[facility] Therapy [address] [place] [phone] Spec, Nurse Only Med 06/18/2024 2:50 PM TUG HAND Therapy Visit [facility] [address] [place] [phone] Ingris Thompson, PT [facility] [address] [facility] [address] [place], [place] [phone] 06/21/2024 2:00 PM TUG HAND Office Visit [facility] [place] [address] [place] [address], [address] [place] [phone] [place] [address] [place] [address] Johnny Penn MD [address] [place], [place] [address] 06/25/2024 8:30 AM TUG HAND Office Visit [address] [phone] Valery Veronica, PA-C [address] [place] [address] 11/28/2024 7:45 AM CDT Virtual Visit [facility] [address] [place] [phone] Meredith Carrera PA-C [address] [place] [address] documented as of this encounter Visit Diagnoses Not on filedocumented in this encounter Additional Health Concerns Infection Onset Date Last Indicated Resolved Time Rule Out COVID-19 07/30/2020 07/30/2020 07/30/2020 7:11 PM TUG HAND Rule Out COVID-19 08/30/2020 08/30/2020 08/30/2020 5:05 PM TUG HAND Rule Out COVID-19 09/24/2020 09/24/2020 09/24/2020 9:24 AM CDT Rule Out COVID-19 11/05/2020 11/05/2020 11/06/2020 1:09 PM CDT Rule Out COVID-19 05/11/2021 05/11/2021 05/13/2021 10:18 AM CDT Rule Out COVID-19 07/13/2021 07/13/2021 07/14/2021 3:04 PM TUG HAND Rule Out COVID-19 07/18/2021 07/18/2021 07/20/2021 1:56 PM TUG HAND COVID-19 07/18/2021 07/18/2021 08/08/2021 11:3 9 PM TUG HAND Rule Out COVID-19 12/18/2021 12/18/2021 12/19/2021 11:34 AM CDT Rule Out COVID-19 02/24/2022 02/24/2022 02/25/2022 1:08 PM CDT Rule Out COVID-19 04/26/2022 04/26/2022 04/26/2022 6:47 AM CDT Rule Out COVID-19 05/17/2022 05/17/2022 05/17/2022 10:20 PM TUG HAND Rule Out COVID-19 06/09/2022 06/09/2022 06/09/2022 9:35 AM TUG HAND COVID-19 06/09/2022 06/09/2022 06/30/2022 11:4 1 PM TUG HAND Rule Out COVID-19 11/10/2022 11/10/2022 11/11/2022 12:17 PM CDT Rule Out COVID-19 03/07/2023 03/07/2023 03/07/2023 1:20 PM CDT Rule Out COVID-19 12/26/2023 12/26/2023 12/26/2023 9:50 AM CDT Rule Out COVID-19 04/09/2024 04/09/2024 04/10/2024 6:48 PM CDT Assessment Noted Time PHQ-9 Depression Total Score: 9 06/04/20 10:35 AM TUG HAND documented as of this encounter Care Teams Gear Shaper Set Up Operator Relationship Specialty Start Date End Date Marija Edgar APRN BROTH MIXER [address] [place] [address] PCP - General Nurse Practitioner 04/30/20 04/14/23 Esha Grimm PA-C [address] [place] [phone] PCP - General Family Medicine 05/04/23 Lita Oseguera Personal Advocate & Liaison (PAL) 02/28/20 03/27/23 Rakesh Cid PA-C [address] [place] [address] Assigned PCP 03/02/20 06/07/20 Chanelle Mccann APRN CNM [address] [place] [address] Assigned OBGYN Provider 05/02/2005/09 Lesley Moody, CHW Community Health Worker 05/30/2005/12 Kyara De La Fuente, RN Specialty Cvir Tech Neurology 06/04/20 03/05/21 Marija Edgar APRN BROTH MIXER [address] [place] [address] Assigned PCP 06/08/20 04/29/23 Mynor Broussard MD [address] [place] [address] Assigned Surgical Provider 06/01/20 11/28/21 Keisha Dotson MD [address] [place] [address] Assigned Neuroscience Provider 06/04/20 04/01/23 Mary Mejia Financial Resource Worker 08/07/20 08/21/20 Stacey Briones, [facility] Lead Cvir Tech Primary Care - CC 08/11/2012/30 Lesley Moody, [facility] Community Health Worker 08/11/2010/01 Mary Mejia Financial Resource Worker 09/02/20 10/06/20 Lita Oseguera Personal Advocate & Liaison (PAL) Family Medicine 09/10/20 09/21/20 Galo Burrell MD Assigned Heart and Vascular Provider 10/05/20 04/02/22 Cristina Wood Financial Resource Worker 10/07/20 10/14/20 Lesley Moody, [facility] Community Health Worker 10/23/2012/30 Meredith Bedoya Financial Resource Worker 10/23/20 11/23/20 Cristina Wood Financial Resource Worker 02/09/21 02/09/21 Diana Desir, [facility] [address] [place] [address] Pharmacist Pharmacist 04/17/21 Rain Galaviz PA-C [address] [place] [address] [place] [address] Physician Pond Sawyer Dermatology 04/28/21 Summer Lara MD [address] [facility] [place] [address] Assigned OBGYN Provider 05/10/2105/23 Summer Lara MD [address] [place] [address] [place] [address] Assigned OBGYN Provider 05/31/21 Summer Lara MD [address] [place] [address] [place] [address] Assigned OBGYN Provider 05/24/2105/30 Tavia Wyatt MD [address] [place] [address] [place] [address] Dermatology 07/14/21 Johnny Murillo MD [address] [place] [address] Assigned Musculoskeletal Provider 08/30/21 03/17/22 Erica Farrell APRN BROTH MIXER [address] [facility] [address] [place] [address] Nurse Practitioner Cardiovascular Disease 09/09/21 Teresita Bean [facility] [address] [facility] [place] [address] Pharmacist Pharmacist 09/24/21 09/29/21 Tavia Wyatt MD Assigned Surgical Provider 11/29/21 05/07/22 Diana Desir, [facility] [address] [place] [address] Assigned MTM Pharmacist 01/02/22 Rcih Barrett MD [address] [place] [address] Physician Ophthalmology 01/21/22 Neil Kent MD [address] [place] [address] Dermatology 02/24/22 Roney Story DPM [address] [address] Assigned Musculoskeletal Provider 03/20/22 08/13/22 Erica Farrell APRN BROTH MIXER [address] [place] [address] Assigned Heart and Vascular Provider 04/03/22 04/16/22 Diana Desir, [facility] [address] [place] [address] Assigned MTM Pharmacist 04/07/22 Jelena David OD [address] [facility] [address] Assigned Surgical Provider 05/08/22 10/08/22 Galo Burrell MD Assigned Heart and Vascular Provider 04/17/22 06/11/22 Livan Sharif MD [address], [facility] [address] [place] [address] Cardiovascular Disease 05/14/22 Livan Sharif MD [address], [address] [address] [place], [place] [address] Assigned Heart and Vascular Provider 06/12/22 07/23/22 Catherine Cm MD [address] [facility] [address] [place], [place] [address] Cardiovascular Disease 07/21/22 Valery Veronica, PAUcheC [address] [place] [address] [phone] Physician Pond Sawyer Dermatology 07/21/22 Catherine Cm MD [address] [place], [place] [address] Assigned Heart and Vascular Provider 07/24/22 11/05/22 Johnny Murillo MD [facility] [address] 619504 Assigned Musculoskeletal Provider 08/14/22 10/08/22 Brea Quinn APRN BROTH MIXER [address] [place] [address] 465145 Nurse Practitioner Dermatology 09/21/22 Brea Quinn, DOCTOR OF NAPRAPATHIC MEDICINE BROTH MIXER [address] [place] [address] Assigned Surgical Provider 10/09/22 05/01/24 [place] [address] [place] [address] Assigned Musculoskeletal Provider 10/09/22 05/01/24 Livan Sharif MD [address] [place] [address] [place] [address] Assigned Heart and Vascular Provider 11/06/22 11/12/22 Catherine Cm MD [address] [place] [address] [place] [address] Assigned Heart and Vascular Provider 11/13/22 05/27/23 Sydnie Martinez RN Personal Advocate & Liaison (PAL) Family Medicine 03/28/23 07/31/23 Alfonso Renteria MD [address] [facility] [address] [place] [address] Assigned Neuroscience Provider 04/02/23 Cheng Todd PA-C [address] [place] [address] [id number] Assigned PCP 04/30/23 07/15/23 Radha Lomeli, ARLENE BROTH MIXER [address] [place] [address] Assigned Heart and Vascular Provider 05/28/23 Jelena David OD [address] [facility] [address] MD Ophthalmology 06/15/23 Pao Joseph, RN Personal Advocate & Liaison (PAL) Nurse 08/01/23 11/07/23 Esha Grimm PA-C [address] [place] [phone] Assigned PCP 07/16/23 Valery Veronica PA-C [address] [place] [address] 956[address] Physician Pond Sawyer Dermatology 09/19/23 Rey Tay MD [address] [place] [address] [phone] MD Gastroenterology 09/20/23 Rocky Zepeda DO [address] [place] [address] 130395 Physician Gastroenterology 09/20/23 Philip Dumont MD [address] [place] [address] [phone] Physician Ophthalmology 09/22/23 Meredith Carrera PA-C [address] [place] [address] 488565 Assigned Gastroenterology Provider 11/01/23 Neil Kent MD [address] [address] Dermatology 11/02/23 [place] [address] [place] [address] Neurological Surgery 12/26/23 Audrey Waite PA-C [address] [place] [address] Physician Pond Sawyer Dermatology 02/28/24 Valery Veronica PA-C [id number] [place] [address] Physician Pond Sawyer Dermatology 04/10/24 documented as of this encounter
--- OUTSIDE RECORDS SUMMARY | 2024-05-27 08:55 | XMS_ITS | Encounter Summary ---
Author Organization [facility] Address [address] [place] [address] Care Team Providers Care Rabbit Breeder Name Role Phone Rakesh Cid PA-C Unavailable + Rakesh Cid PA-C Primary Care Provider Lita Oseguera Unavailable Unavailable Rakesh Cid PA-C Unavailable + Isaura Lamar RN Unavailable Unavailable Lita Oseguera Unavailable Unavailable Marija Edgar APRN TIP PUNCHER Primary Care Provider + Chanelle Mccann APRN CN Unavailab le Lesley Moody CHW Unavailable Kyara De La Fuente RN Unavailable [phone] Marija Edgar APRN TIP PUNCHER Unavailable [phone] Mynor Broussard MD Unavailable [phone] Keisha Dotson MD Unavailable [phone] Mary Mejia Unavailable Unavailable Stacey Briones BUS GIRL Unavailable [phone] Lesley Moody CHW Unavailable Mary Mejia Unavailable Unavailable Lita Oseguera Unavailable Unavailable Galo Burrell MD Unavailable Unavailable Cristina Wood Unavailable Lesley Moody [facility] Unavailable Meredith Bedoya Unavailable Unavailable Cristina Wood Unavailable Diana Desir [facility] Unavailable [phone] Rain Galaviz PA-C Unavailable [phone] Summer Lara MD Unavailable [phone] Summer Lara MD Unavailable [phone] Summer Lara MD Unavailable [phone] Tavia Wyatt MD Unavailable Unavailable Johnny Murillo MD Unavailable [phone] Erica Farrell APRN TIP PUNCHER Unavailable Teresita Bean [facility] Unavailable Tavia Wyatt MD Unavailable Unavailable Diana Desir [facility] Unavailable [phone] Rich Barrett MD Unavailable [phone] Neil Kent MD Unavailable Roney Story DPM Unavailable [phone] Erica Farrell APRN TIP PUNCHER Unavailable + Diana Desir [facility] Unavailable [phone] Jelena David OD Unavailable Galo Burrell MD Unavailable Unavailable Livan Sharif MD Unavailable Livan Sharif MD Unavailable + Catherine Cm MD Unavailable + Valery Veronica PA-C Unavailable [phone] Catherine Cm MD Unavailable + Johnny Murillo MD Unavailable [phone] Brea Quinn SALT MANAGER TIP PUNCHER Unavailable [phone] Brea Quinn SALT MANAGER TIP PUNCHER Unavailable [phone] Jose Francisco Johnson MD Unavailable Livan Sharif MD Unavailable Catherine Cm MD Unavailable + Sydnie Martinez RN Unavailable Unavailable Alfonso Renteria MD Unavailable Esha Grimm PA-C Primary Care Provider Cheng Todd PA-C Unavailable Radha Lomeli SALT MANAGER TIP PUNCHER Unavailable Jelena David OD Unavailable Pao Joseph RN Unavailable Unavailable Esha Grimm PA-C Unavailable [phone] Valery Veronica PA-C Unavailable [phone] Rey Tay MD Unavailable Rocky Zepeda DO Unavailable Philip Dumont MD Unavailable Meredith Carrera PA-C Unavailable Neil Kent MD Unavailable Juan Pablo Emmanuel MD Unavailable Audrey Waite PA-C Unavailable Valery Veronica PA-C Unavailable [phone] Encounter Details Date Type Department Care Team (Late st Contact Info) Description 02/27/[address], [address] [place] [address] Rakesh Cid PA-C [address] [place] [address] Social History Tobacco Use Types Packs/Day Years Used Date Smoking Tobacco: Former Cigarettes Q uit: 12/07/2019 Other Smokeless Tobacco: Never Comments:Vaping Alcohol Use Standard Drinks/Week Comments Not Currently 0 (1 standard drink = 0.6 oz pur e alcohol) PHQ-2 Answer Date Recorded PHQ-2 Score 1 02/28/2020 Comments No Sex and Gender Information Value Date Recorded Sex Assigned at Female 03/02/2021 5:45 PM CDT Legal Sex Female 4:13 AM INCUBATOR OPERATOR Gender Identity Female 03/02/2021 5:45 PM [...] message?: Yes at Home number on file [phone] (home) Violet Jeffrey Patient Hydrologist documented in this encounter Plan of Treatment Upcoming Encounters Date Type Department Care Team (Late st Contact Info) Description 05/31/2024 8:40 AM INCUBATOR OPERATOR Therapy Visit [facility] [address] [place] [address] Ingris Thompson, PT [facility] [address] [address] 05/31/2024 3:30 PM INCUBATOR OPERATOR Office Visit [facility] [place] [address] [place] [phone] Audrey Díaz, Herminia Koo MD [address] [place] [address] 06/04/2024 3:30 PM INCUBATOR OPERATOR [facility] [address] [facility] [address] [place] [phone] Jelena David, [address] [facility] [place] [address] 06/11/2024 10:30 AM INCUBATOR OPERATOR Appointment [facility] [address] [place] [phone] Spec, Nurse Only Med 06/18/2024 2:50 PM INCUBATOR OPERATOR Therapy Visit [facility] [address] [place] [phone] Ingris Thompson, PT [facility] [address] [place] [address] [address] [place], [place] [address] 06/21/2024 2:00 PM INCUBATOR OPERATOR Office Visit [facility] [place] [address] [place] [address], [address] [place] [phone] [place] [address] [place] [id number] Johnny Penn MD [address] [place] [address] 06/25/2024 8:30 AM INCUBATOR OPERATOR Office Visit [address] [place] [address] Valery Veronica PA-C [address] [place] [address] 11/28/2024 7:45 AM CDT Virtual Visit [facility] [address] 4th [place] [phone] Meredith Carrera PA-C [address] [place] [address] documented as of this encounter Visit Diagnoses Not on filedocumented in this encounter Additional Health Concerns Infection Onset Date Last Indicated Resolved Time Rule Out COVID-19 07/30/2020 07/30/2020 07/30/2020 7:11 PM INCUBATOR OPERATOR Rule Out COVID-19 08/30/2020 08/30/2020 08/30/2020 5:05 PM INCUBATOR OPERATOR Rule Out COVID-19 09/24/2020 09/24/2020 09/24/2020 9:24 AM CDT Rule Out COVID-19 11/05/2020 11/05/2020 11/06/2020 1:09 PM CDT Rule Out COVID-19 05/11/2021 05/11/2021 05/13/2021 10:18 AM CDT Rule Out COVID-19 07/13/2021 07/13/2021 07/14/2021 3:04 PM INCUBATOR OPERATOR Rule Out COVID-19 07/18/2021 07/18/2021 07/20/2021 1:56 PM INCUBATOR OPERATOR COVID-19 07/18/2021 07/18/2021 08/08/2021 11:3 9 PM INCUBATOR OPERATOR Rule Out COVID-19 12/18/2021 12/18/2021 12/19/2021 11:34 AM CDT Rule Out COVID-19 02/24/2022 02/24/2022 02/25/2022 1:08 PM CDT Rule Out COVID-19 04/26/2022 04/26/2022 04/26/2022 6:47 AM CDT Rule Out COVID-19 05/17/2022 05/17/2022 05/17/2022 10:20 PM INCUBATOR OPERATOR Rule Out COVID-19 06/09/2022 06/09/2022 06/09/2022 9:35 AM INCUBATOR OPERATOR COVID-19 06/09/2022 06/09/2022 06/30/2022 11:4 1 PM INCUBATOR OPERATOR Rule Out COVID-19 11/10/2022 11/10/2022 11/11/2022 12:17 PM CDT Rule Out COVID-19 03/07/2023 03/07/2023 03/07/2023 1:20 PM CDT Rule Out COVID-19 12/26/2023 12/26/2023 12/26/2023 9:50 AM CDT Rule Out COVID-19 04/09/2024 04/09/2024 04/10/2024 6:48 PM CDT Assessment Noted Time PHQ-9 Depression Total Score: 020 1:14 PM CDT documented as of this encounter Care Teams Rabbit Breeder Relationship Specialty Start Date End Date Rakesh Cid PA-C [address] [place] [address] PCP - General Physician Corporate Law Specialist - Medical 05/14/19 04/29/20 Marija Edgar APRN CNP PCP - General Nurse Practitioner 04/30/20 04/14/23 Esha Grimm PA-C [address] [place] [phone] PCP - General Family Medicine 05/04/23 Rakesh Cid PA-C [address] [place] [address] Assigned PCP 05/06/19 03/01/20 Lita Oseguera Personal Advocate & Liaison (PAL) 02/28/20 03/27/23 Rakesh Cid PA-C [address] [place] [address] Assigned PCP 03/02/20 06/07/20 Isaura Lamar, RN Personal Advocate & Liaison (PAL) Family Practice 04/03/20 04/06/20 Lita Oseguera Personal Advocate & Liaison (PAL) 04/07/20 04/29/20 Chanelle Mccann APRN CNM [address] [place] [address] Assigned OBGYN Provider 05/02/2005/09 Lesley Moody W Community Health Worker 05/30/2005/12 Kyara De La Fuente, RN [facility] Neurology 06/04/20 03/05/21 Marija Edgar APRN TIP PUNCHER Assigned PCP 06/08/20 04/29/23 Mynor Broussard MD [address] [address] Assigned Surgical Provider 06/01/20 11/28/21 Keisha Dotson MD [address] [place] [address] Assigned Neuroscience Provider 06/04/20 04/01/23 Mary Mejia Financial Resource Worker 08/07/20 08/21/20 Stacey Briones, [facility] Primary Care - CC 08/11/2012/30 Lesley Moody, [facility] Community Health Worker 08/11/2010/01 Mary Mejia Financial Resource Worker 09/02/20 10/06/20 Lita Oseguera Personal Advocate & Liaison (PAL) Family Medicine 09/10/20 09/21/20 Galo Burrell MD Assigned Heart and Vascular Provider 10/05/20 04/02/22 Cristina Wood Financial Resource Worker 10/07/20 10/14/20 Lesley Moody, [facility] Community Health Worker 10/23/2012/30 Meredith Bedoya Financial Resource Worker 10/23/20 11/23/20 Cristina Wood Financial Resource Worker 02/09/21 02/09/21 Diana Desir, [facility] [address] [place], [place] [address] Pharmacist Pharmacist 04/17/21 Rain Galaviz PA-C [address] [place] [address] [address] [place], [place] [phone] Physician Corporate Law Specialist Dermatology 04/28/21 Summer Lara MD [address] [place] [address] [phone] Assigned OBGYN Provider 05/10/2105/23 Summer Lara MD [address] [place] [address] [phone] Assigned OBGYN Provider 05/31/21 2 Summer Lara MD [address] [place] [address] Assigned OBGYN Provider 05/24/2105/30 Tavia Wyatt MD [address] [place] [address] Dermatology 07/14/21 Johnny Murillo MD [address] [place] [address] Assigned Musculoskeletal Provider 08/30/21 03/17/22 Erica Farrell APRN TIP PUNCHER [address] [facility] [address] [place], [place] [phone] Nurse Practitioner Cardiovascular Disease 09/09/21 Teresita Bean [facility] [address] [place], [place] [phone] Pharmacist Pharmacist 09/24/21 09/29/21 Tavia Wyatt MD Assigned Surgical Provider 11/29/21 05/07/22 [facility] [address] [place] [address] Assigned MTM Pharmacist 01/02/22 Rich Barrett MD [address] 178[address] Physician Ophthalmology 01/21/22 Neil Kent MD [address] [place] [address] [phone] Dermatology 02/24/22 Roney Story DPM [address] [facility] [address] [place] [address] Assigned Musculoskeletal Provider 03/20/22 08/13/22 Erica Farrell APRN TIP PUNCHER [address] [place] [address] Assigned Heart and Vascular Provider 04/03/22 04/16/22 [facility] [address] [place] [address] Assigned MTM Pharmacist 04/07/22 Jelena David OD [address] [facility] [place] [address] Assigned Surgical Provider 05/08/22 10/08/22 Galo Burrell MD Assigned Heart and Vascular Provider 04/17/22 06/11/22 Livan Sharif MD [address] [place] [address] Cardiovascular Disease 05/14/22 Livan Sharif MD [address] [place] [address] Assigned Heart and Vascular Provider 06/12/22 07/23/22 Catherine Cm MD [address] [address] [place] [address] Cardiovascular Disease 07/21/22 Valery Veronica PA-C [address] [place] [address] Physician Corporate Law Specialist Dermatology 07/21/22 Catherine Cm MD [address] [facility] [place] [place] [address] Assigned Heart and Vascular Provider 07/24/22 11/05/22 Johnny Murillo MD [facility] [address] 319944 Assigned Musculoskeletal Provider 08/14/22 10/08/22 Brea Quinn APRN TIP PUNCHER [address] [place] [address] 501385 Nurse Practitioner Dermatology 09/21/22 Brea Quinn APRN TIP PUNCHER [address] [place] [address] 738282 Assigned Surgical Provider 10/09/22 05/01/24 [place] [address] 619917 Assigned Musculoskeletal Provider 10/09/22 05/01/24 Livan Sharif MD [address] [facility] [place] [address]355 Assigned Heart and Vascular Provider 11/06/22 11/12/22 Catherine Cm MD [address] [facility] [address] [place] [address] Assigned Heart and Vascular Provider 11/13/22 05/27/23 Sydnie Martinez, VJ Personal Advocate & Liaison (PAL) Family Medicine 03/28/23 07/31/23 Alfonso Renteria MD [address] [facility] [address] [place] [address] Assigned Neuroscience Provider 04/02/23 Cheng Todd PA-C [address] [place] [address] [phone] Assigned PCP 04/30/23 07/15/23 Radha Lomeli APRN TIP PUNCHER [address] [facility] [address] [place] [address] Assigned Heart and Vascular Provider 05/28/23 Jelena David OD [address] [facility] [place] [address] Ophthalmology 06/15/23 Pao Joseph, VJ Personal Advocate & Liaison (PAL) Nurse 08/01/23 11/07/23 Esha Grimm PA-C [address] [place] [address] Assigned PCP 07/16/23 Valery Veronica PA-C [address] [place] [address] 217795 Physician Corporate Law Specialist Dermatology 09/19/23 Rey Tay MD [address] [place] [address] [phone] MD Gastroenterology 09/20/23 Rocky Zepeda DO [address] [place] [address] Physician Gastroenterology 09/20/23 Philip Dumont MD [address] [place] [address] Physician Ophthalmology 09/22/23 Meredith Carrera PA-C [address] [place], [place] 4486[address] Assigned Gastroenterology Provider 11/01/23 Neil Kent MD [address] [phone] Dermatology 11/02/23 [place] [address] [address] 454[address] Neurological Surgery 12/26/23 Audrey Waite PA-C [address] [place] [address] Physician Corporate Law Specialist Dermatology 02/28/24 Valery Veronica PA-C [address] [place] [address] Physician Corporate Law Specialist Dermatology 04/10/24 documented as of this encounter
[2024-05-27 09:03] LABS: Slide Review Reflex No
[2024-05-27 09:05] LABS: Chloride* 104 mmol/L (96-114); Sodium* 138 mmol/L (135-149)
[2024-05-27 09:08] LABS: Anion Gap 9 mEq/L (7-15); Blood Urea Nitrogen* 13 mg/dL (5-24); Carbon Dioxide* 25 mmol/L (20-32); Creatine Kinase* 114 U/L (41-117); Creatinine* 0.6 mg/dL (0.5-1.5); Est. Creatinine Clearance* 135.35; Estimated Glomerular Filt Rate 128 ml/min
[2024-05-27 09:09] LABS: Calcium* 9.2 mg/dL (8.4-10.6); Glucose* 94 mg/dL (60-115)
[2024-05-27 09:14] LABS: Ur HCG Qualitative* Negative (Negative)
[2024-05-27 09:27] LABS: Troponin I* < 0.01 ng/mL (0.01-0.04)
== END 2024-05-27 10:20 | disposition home or self-care (01) ==
PROVIDERS: Emergency Provider Emergency Medicine
DX: R00.2 Palpitations (principal); M79.10 Myalgia, unspecified site
CPT/HCPCS: 36415; 80048; 81025; 82550; 84484; 85025; 93005; 99283; 99284; A9270

== ENCOUNTER 2024-07-05 17:24 | Emergency (ER) | payer MEDICAID, SELFPAY ==
[2024-07-05 17:38] VITALS: BP 115/73; PULSE 93; RESP 18; TEMP 36.9; O2SAT 98; BMI 32.3
--- NOTE | 2024-07-05 17:58 | ED_ITS ---
HPI - General Adult General Date Seen: 07/05/24 Chief complaint: Abdominal Pain Stated complaint: body aches, concerned about gall bladder Time Seen by Provider: 07/05/24 17:54 History of Present Illness HPI narrative: 24 yoF the with a history of SVT (status post ablation. On metoprolol 12 point mg b.i.d.), psoriasis, presenting to the ER today with concern for possible gallbladder problems. Per her triage nurse she woke up at about 6:00 a.m. this morning with some crampy contraction like pain under her right ribs the last her for about 3 hours. 2 simple go to work and felt better. Later on in the day she felt hot flashes, dizzy, generally on while. Subsequently she had another episode of right upper quadrant pain. She is also concerned because her partner has been sleeping with multiple people and she wants to do an STD check Patient reports that she found out today that her significant other has been sleeping with multiple other women. She is not sure how long that is been going on a. She is not having any symptoms of vaginal discharge or other clear symptoms of STD but she would like to be checked. Her primary concern is for right upper quadrant abdominal pain. She notes that she has had a few episodes of upper abdominal pain over the past couple of years but never anything like today. She was awoken from sleep with a crampy wave of pain in her right upper quadrant. It came and went for about 3 hours and then was better by about 9:00 a.m.. She was able to go to work and then and just after lunch time today she had recurrence of pain in that area. All afternoon she has just been feeling ?not very well with ongoing more mild discomfort and mild nausea. No fever. She has not have any cough for rib pain or chest pain. She has been nauseous. No bloody vomiting. Bowel movements normal. Urination normal. Review of prior records... CT abdomen/pelvis 03/18/2023 FINDINGS: Lower chest: No focal consolidation. Evaluation of solid organs is limited secondary to lack of IV contrast administration. Liver: No suspicious focal hepatic lesion. Gallbladder and bile ducts: Unremarkable. Pancreas: Unremarkable. Spleen: Unremarkable. Splenule is noted. Adrenal glands: Unremarkable. Kidneys: No renal calculi or hydronephrosis bilaterally. Retroperitoneum: No lymphadenopathy. Bowel and mesentery: Bowel is not obstructed. Mild pericolonic inflammation along the descending colon. Appendix contains hyperdense material, but is normal in caliber with no periappendiceal inflammation. No significant ascites. No pneumoperitoneum. Bladder: Decompressed, suboptimally evaluated. Reproductive organs: Intrauterine contraceptive device is noted. Prominent phleboliths are noted. Pelvic lymph nodes: No lymphadenopathy. Vessels: Unremarkable for unenhanced study. Abdominal wall: No acute abdominal wall abnormality. Bones: No suspicious/aggressive focal osseous lesion. IMPRESSION: 1. No renal calculi or hydronephrosis bilaterally. 2. Mild colitis along the descending colon. 3. No evidence of acute appendicitis. Please note that all CT scans at this facility use dose modulation, iterative reconstruction, and/or weight-based dosing when appropriate to reduce radiation dose to as low as reasonably achievable. Related Data Home Medications ?Medication ?Instructions ?Recorded ?Confirmed omeprazole 40 mg capsule,delayed 40 mg PO DAILY 04/28/22 07/05/24 release lorazepam 0.5 mg tablet 0.5 mg PO DAILY PRN anxiety 03/18/23 07/05/24 metoprolol succinate 25 mg 12.5 mg PO DAILY 10/15/23 07/05/24 tablet,extended release 24 hr paroxetine HCl 40 mg tablet 40 mg PO QAM 10/15/23 07/05/24 ketoconazole 2 % shampoo topical 05/02/24 05/02/24 tretinoin 0.05 % topical cream 1 applic topical QPM 05/02/24 07/05/24 (Retin-A) Allergies Allergy/AdvReac Type Severity Reaction Status Date / Time vancomycin Allergy Verified 07/05/24 17:47 [facility] Medical History SVT (supraventricular tachycardia) ?I47.10 - Supraventricular tachycardia, unspecified (ICD-10) Social History Smoking Status: Former smoker What tobacco products do you use: cigarettes Smoking quit date/years: <= 15 years ago Do you use any of these nicotine containing products: None and Vaping Products Second hand tobacco smoke exposure: No How often do you have a drink containing alcohol: monthly or less How often do you have six or more drinks on one occasion: Never AUDIT-C Alcohol total score: 1 Non-prescribed substance use: denies use service: No Exam Narrative: Exam Narrative: Constitutional: Appears well-developed and well-nourished. Alert. Conversant. Non toxic. HENT: Head: Atraumatic. Nose: Nose normal. Mouth/Throat: Oral mucosa is clear and moist. no trismus. Pharynx normal. Tonsils symmetric. No tonsillar enlargement, erythema, or exudate. Eyes: Conjunctivae normal. EOM normal. Pupils equal, round, and reactive to light. No scleral icterus. Neck: Normal range of motion. Neck supple. No tracheal deviation present. Cardiovascular: Normal rate, regular rhythm. No gallop. No friction rub. No murmur heard. Symmetric radial artery pulses Pulmonary/Chest: Effort normal. No stridor. No respiratory distress. No wheezes. No rales. No rhonchi . No tenderness. Abdominal: Soft. Bowel sounds normal. No distension. No mass. Mild right upper quad tenderness. No hepatomegaly. No Lovelace sign. No CVA tenderness No rebound. No guarding. Musculoskeletal: RUE: Normal range of motion. No tenderness. No deformity LUE: Normal range of motion. No tenderness. No deformity RLE: Normal range of motion. No edema. No tenderness. No deformity LLE: Normal range of motion. No edema. No tenderness. No deformity Neurological: Alert and oriented to person, place, and time. Normal strength. CN II-VII intact. No sensory deficit. GCS eye subscore is 4. GCS verbal subscore is 5. GCS motor subscore is 6. Normal coordination Skin: Skin is warm and dry. No rash noted. No pallor. Normal capillary refill. Psychiatric: Normal mood. Normal affect. Const: Vital Signs, click to edit/add: Vital Signs - 24 hr 07/05/24 17:38 Temperature 98.5 F Pulse Rate [Pulse Oximeter] 93 Respiratory Rate 18 Blood Pressure [Ri ght Upper Arm] 115/73 Pulse Oximetry 98 Oxygen Delivery Me thod Room Air Course Vital Signs Vital signs: Initial Vital Signs Temperature 98.5 F 07/05/24 17:38 Temperature Source Temporal Artery Scan 07/05/24 17:38 Pulse Rate 93 07/05/24 17:38 Respiratory Rate 18 07/05/24 17:38 Blood Pressure 115/73 12/26/24 17:38 Blood Pressure Mean 87 07/05/24 17:38 Blood Pressure Position Sitting 07/05/24 17:38 Pulse Oximetry 98 07/05/24 17:38 Oxygen Delivery Method Room Air 07/05/24 17:38 Vital Signs Temperature 98.5 F 07/05/24 17:38 Pulse Rate 93 07/05/24 17:38 Respiratory Rate 18 07/05/24 17:38 Blood Pressure 115/73 07/05/24 17:38 Pulse Oximetry 98 07/05/24 17:38 Oxygen Delivery Method Room Air 07/05/24 17:38 Temperature 98.5 F 07/05/24 17:38 Pulse Rate 93 07/05/24 17:38 Respiratory Rate 18 07/05/24 17:38 Blood Pressure 115/73 07/05/24 17:38 Pulse Oximetry 98 07/05/24 17:38 Oxygen Delivery Method Room Air 07/05/24 17:38 Medical Decision Making MDM Narrative Medical decision making narrative: Pleasant 24-year-old female presenting to the ER today with 2 concerns. Primary among them is that she is developing intermittent right upper quadrant pain today. Concern is for possible cholecystitis or biliary colic. Gallbladder ultrasound actually shows a structurally normal gallbladder with no wall thickening and no gallstones. No sludge. CBD is normal. Laboratory workup shows normal white count, normal LFTs, normal lipase. Discussed with the patient at this point there is no evidence for acute cholecystitis and no evidence for stones to cause biliary colic. Differential would consider also include biliary dyskinesia and would recommend close outpatient follow-up to consider possible HIDA scan. She is not having any right lower quadrant abdominal pain to raise concern for appendicitis. At this point we feel that the risk of radiation exposure from a CT scan would outweigh the benefit. Differential would also include peptic ulcer disease but her pain is primary in the right upper quadrant. She is not having any symptoms of upper GI bleed. No exam evidence for perforated ulcer. At this point I do not think she needs admission for emergent endoscopy. Urinalysis shows no evidence for pyelonephritis or hematuria to suggest kidney stone. She is also concerned because her partner has been unfaithful to her and apparently sleeping with multiple other individuals. She would like to be checked for STDs. She gave a urinalysis (not clean catch) to do PCR for gonorrhea and chlamydia. Labs for VDRL and HIV are ordered and pending. Overall patient is not having any active symptoms of STD. Using shared decision-making we will hold off on empiric treatment. However if any of her tests come back positive we will contact her by phone and initiate appropriate therapy at that time. Lab Data Labs: Lab Results 07/05/24 07/05/24 07/05/24 Range/Units 18:00 18:41 19:44 WBC 6.38 (4.50-11.00) K/uL RBC 4.64 (4.00-5.20) m/uL Hgb 12.1 (12.0-16.0) gm/dL Hct 37.8 (33.0-51.0) % MCV 82 (80-100) fL MCH 26 (26-34) pg MCHC 32 (32-36) gm/dL RDW Coeff of Naina 12.3 (11.5-15.5) % Plt Count 222 (140-440) K/uL Neut % (Auto) 69.1 (42.0-72.0) % Lymph % (Auto) 23.5 (20-44) % [place] % (Auto) 4.4 (0.0-11.0) % Eos % (Auto) 2.5 (0.0-7.0) % Baso % (Auto) 0.3 (0.0-3.0) % Neut # (Auto) 4.41 (1.7-7.0) K/uL Lymph # (Auto) 1.50 (0.90-2.90) K/uL [place] # (Auto) 0.30 (0.00-0.90) K/UL Eos # (Auto) 0.16 (0.00-0.50) K/uL Baso # (Auto) 0.02 (0.00-0.30) K/uL Abs Immat Gran (auto) 0.01 (0.00-0.30) K/uL Imm/Tot Granulo (auto) 0.2 % Sodium 137 (135-149) mmol/L Potassium 3.7 (3.6-5.1) mmol/L Chloride 104 (96-114) mmol/L Carbon Dioxide 26 (20-32) mmol/L Anion Gap 7 (7-15) mEq/L BUN 16 (5-24) mg/dL Creatinine 0.6 (0.5-1.5) mg/dL Estimated Creat Clear 135.35 Estimated GFR 128 ml/min Glucose 90 (60-115) mg/dL Calcium 9.6 (8.4-10.6) mg/dL Total Bilirubin 0.6 (0.1-1.5) mg/dL AST 24 (12-35) U/L ALT 34 (4-35) U/L Alkaline Phosphatase 52 (40-150) U/L Total Protein 7.5 (6.0-8.3) g/dL Albumin 4.4 (3.3-5.0) g/dL Lipase 110 (23-300) U/L Urine Color Yellow (Yellow) Urine Appearance Clear (Clear) Urine pH 7.0 (5.0-8.5) Ur Specific [employer] 1.015 (1.000-1.030) Urine Protein Negative (Negative) Urine Glucose (UA) Negative (Negative) Urine Ketones Negative (Negative) Urine Blood Trace-lysed A (Negative) Urine Nitrite Negative (Negative) Urine Bilirubin Negative (Negative) Urine Urobilinogen 0.2 (0.2-1.0) Ur Leukocyte Esterase Negative (Negative) Urine RBC 0-2 (0-2) Urine WBC 0-2 (0-5) Ur Squamous Epith Cells None (None-Few) Urine Bacteria None (None) Urine HCG, Qual Negative (Negative) C.trachomatis Ampl DNA NOT DETECTED (No Detected) HIV 1&2 Ab/P24 Ag 4thGn Negative (Negative) N.gonorrhoeae Ampl DNA NOT DETECTED (No Detected) Discharge Plan Discharge Clinical Impression: Abdominal pain, RUQ, Encounter for assessment of STD exposure Patient Disposition: Home, Self-Care Condition: Stable Instructions: Abdominal Pain (ED) Additional Instructions: As we discussed, so for your workup looks reassuring. We do not see any sign of gallstones or gallbladder infection. Your blood tests for your liver, pancreas, kidneys are normal. Your blood counts are normal. Your urine test looks healthy. You are not tonight. Please monitor your abdominal pain. If you are having worsening pain in your abdomen or other new symptoms such as fever, uncontrolled vomiting, bloody or black stools, or any problems come back to the ER right away. If your pain is not getting better within the next 24-36 hours, please see your doctor or come back to the ER for a recheck. In terms of your STD exposure, your test results are not back yet. Your labs will probably come back tomorrow. Someone from the hospital will call you with any positive abnormal test results. We will not call you if your test results are negative. Remember, please recheck with your regular doctor to arrange a follow-up HIV screen in about 1 month. Prescriptions: No Action tretinoin [Retin-A] 0.05 % cream 1 applic topical QPM ketoconazole 2 % shampoo topical lorazepam 0.5 mg tablet 0.5 mg PO DAILY PRN (Reason: anxiety) omeprazole 40 mg capsule,delayed release(DR/EC) 40 mg PO DAILY Patient Comments: TAKE ONE CAPSULE BY MOUTH EVERY DAY . metoprolol succinate 25 mg tablet extended release 24 hr 12.5 mg PO DAILY paroxetine HCl 40 mg tablet 40 mg PO QAM Follow Up/Referrals: Provider,Not a Local [Primary Care Provider] - Stand Alone Forms: [employer] Info Instructions
--- NOTE | 2024-07-05 18:03 | CRLHL7_ITS ---
For Patients: As a result of the Century Cures Act, medical imaging exams and procedure reports are released immediately into your electronic medical record. You may view this report before your referring provider. If you have questions, please contact your health care provider. INDICATION: Right upper quadrant abdomen pain. TECHNIQUE: Ultrasound abdomen limited. COMPARISON: None. FINDINGS: Gallbladder: Normal. No stones or sludge. Normal wall thickness. No pericholecystic fluid. Common bile duct: 3 mm. No ductal stone visualized Dictated by Uziel Wells MD @ 07/05/2024 7:18:41 PM (Electronically Signed)
[2024-07-05 18:19] LABS: Appearance Urine Clear (Clear); Bilirubin Urine Negative (Negative); Blood Urine Trace-lysed (Negative); Color Urine Yellow (Yellow); Glucose Urine Negative (Negative); Ketones Urine Negative (Negative); Leukocyte Esterase Urine Negative (Negative); Nitrite Urine Negative (Negative); Protein Urine Negative (Negative); Specific Gravity Urine 1.015 (1.000-1.030); Urobilinogen Urine 0.2 (0.2-1.0)
[2024-07-05 18:24] LABS: Ur HCG Qualitative* Negative (Negative)
[2024-07-05 18:35] LABS: RBC Urine 0-2 (0-2); WBC Urine 0-2 (0-5)
[2024-07-05 18:59] LABS: Basophils Absolute Auto 0.02 K/uL (0.00-0.30); Basophils Percent Auto 0.3 % (0.0-3.0); Eosinophils Absolute Auto 0.16 K/uL (0.00-0.50); Eosinophils Percent Auto 2.5 % (0.0-7.0); Hematocrit 37.8 % (33.0-51.0); Hemoglobin* 12.1 gm/dL (12.0-16.0); Immature Granulocytes Abs Auto 0.01 K/uL (0.00-0.30); Immature Granulocytes Pct Auto 0.2 %; Lymphocytes Percent Auto 23.5 % (20-44); Mean Corpuscular HGB Conc 32 gm/dL (32-36); Mean Corpuscular Hemoglobin 26 pg (26-34); Mean Corpuscular Volume 82 fL (80-100); Monocytes Percent Auto 4.4 % (0.0-11.0); Neutrophils Absolute Auto 4.41 K/uL (1.7-7.0); Neutrophils Percent Auto 69.1 % (42.0-72.0); Platelet Count* 222 K/uL (140-440); RDW Coefficient of Variation % 12.3 % (11.5-15.5); Red Blood Count 4.64 m/uL (4.00-5.20); White Blood Count* 6.38 K/uL (4.50-11.00)
[2024-07-05 19:08] LABS: Slide Review Reflex No
[2024-07-05 19:30] LABS: Albumin* 4.4 g/dL (3.3-5.0); Chloride* 104 mmol/L (96-114); Potassium* 3.7 mmol/L (3.6-5.1); Sodium* 137 mmol/L (135-149)
[2024-07-05 19:33] LABS: Alanine Aminotransferase* 34 U/L (4-35); Alkaline Phosphatase* 52 U/L (40-150); Anion Gap 7 mEq/L (7-15); Aspartate Amino Transferase* 24 U/L (12-35); Bilirubin Total* 0.6 mg/dL (0.1-1.5); Blood Urea Nitrogen* 16 mg/dL (5-24); Carbon Dioxide* 26 mmol/L (20-32); Creatinine* 0.6 mg/dL (0.5-1.5); Est. Creatinine Clearance* 135.35; Estimated Glomerular Filt Rate 128 ml/min; Glucose* 90 mg/dL (60-115); Lipase* 110 U/L (23-300); Total Protein* 7.5 g/dL (6.0-8.3)
[2024-07-05 19:34] LABS: Calcium* 9.6 mg/dL (8.4-10.6)
[2024-07-05 20:51] LABS: Chlamydia DNA Amplified* NOT DETECTED (No Detected); GC DNA Amplified* NOT DETECTED (No Detected)
[2024-07-05 21:07] LABS: HIV 1/2/P24 Combo Screen* Negative (Negative)
[2024-07-08 10:13] LABS: Treponema pallidum VDRL Serum Non Reactive (Non Reactive)
== END 2024-07-05 19:56 | disposition home or self-care (01) ==
PROVIDERS: Emergency Provider Emergency Medicine
DX: R10.11 Right upper quadrant pain (principal); Z11.3 Encounter for screening for infections with a predominantly sexual mode of transmission
CPT/HCPCS: 36415; 76705; 80053; 81001; 81025; 83690; 85025; 86592; 86593; 86703; 87491; 87591; 99283; 99284

== ENCOUNTER 2024-07-13 18:42 | Outpatient (CLI) | payer MEDICAID, SELFPAY ==
[2024-07-13 23:13] LABS: Chlamydia DNA Amplified* NOT DETECTED (No Detected); GC DNA Amplified* NOT DETECTED (No Detected)
== END 2024-07-13 18:43 | disposition home or self-care (01) ==
LOC: LKVREF 18:42
PROVIDERS: Visit Provider Physician Assistant
DX: N76.0 Acute vaginitis (principal)
CPT/HCPCS: 87491; 87591

== ENCOUNTER 2024-07-22 20:36 | Emergency (ER) | payer MEDICAID, SELFPAY ==
--- OUTSIDE RECORDS SUMMARY | 2024-07-22 20:38 | XMS_ITS | Continuity of Care Document ---
Author Name [facility] User [email or web address] Address Unknown Organization Unknown Address Unknown Procedures FILTER APPLIED:Only known Procedures with Onset Date within the last 5 years Procedure Date Procedure Provider Additiona l Information Status ROUTINE VENIPUNCTURE (78301) Completed X-RAY EXAM CHEST 1 VIEW (11255) Completed EMERGENCY DEPT VISIT MOD MDM (75087) Completed EMERGENCY DEPT VISIT HI MDM (33364) Completed ELECTROCARDIOGRAM TRACING (08680) Completed METABOLIC PANEL TOTAL CA (63228) Completed FIBRIN DEGRADATION QUANT (69865) Completed COMPLETE CBC W/AUTO DIFF WBC (04121) Completed ASSAY OF LIPASE (80053) Completed HEPATIC FUNCTION PANEL (49118) Completed C-REACTIVE PROTEIN (24512) Completed VITAMIN E (66327) Comple madide VITAMIN B6 (84643) Compl eted VITAMIN A (50161) Comple maddie EMERGENCY DEPT VISIT HI MDM (22250) Completed FIBRIN DEGRADATION QUANT (20774) Completed ASSAY OF TROPONIN QUANT (63012) Completed METABOLIC PANEL TOTAL CA (73005) Completed X-RAY EXAM CHEST 1 VIEW (67681) Completed EMERGENCY DEPT VISIT MOD MDM (68347) Completed ELECTROCARDIOGRAM TRACING (90123) Completed COMPLETE CBC W/AUTO DIFF WBC (01369) Completed ROUTINE VENIPUNCTURE (67053) Completed AL UGI ENDOSCOPY DIAG W OR W/O BRUSH/WASH (75159) Completed EMERGENCY DEPT VISIT LOW MDM (79642) Completed ELECTROCARDIOGRAM TRACING (70562) Completed Encounters FILTER APPLIED:Only known Encounters with Admission Date within the last 5 years Encounter Location Admission Discharge Billing Code Manager Of Applications Development [facility] Emergency Dee [facility]
--- OUTSIDE RECORDS SUMMARY | 2024-07-22 20:38 | XMS_ITS | Clinical Summary ---
Author Organization [employer] [facility] [employer] [facility] Address [place], [place] [address] Care Team Providers Care Test Grader Name Role Phone Pcp, No Primary Care Provider Unavailabl e Clinic, No Pcp Or Unavailable Unavailable Allergies Active Allergy Reactions Criticality Noted Date Comments Vancomycin Other - Describe In Comment Field Medications biotin-silicon axtr-G-yvwzsoav 3,000 mcg -100 mg-50 mg TbER Take 1 capsule by mouth once daily. Active etonogestrel subdermal implant (NEXPLANON) 68 mg implant Inject 68 mg subcutaneous. 7 Active ferrous sulfate, 65 mg elemental, tablet Take 325 mg by mouth once daily. Active fluocinonide 0.05% topical (LIDEX) 0.05 % cream Apply topically to affected area(s) 2 times daily. 7 Active ibuprofen (ADVIL; MOTRIN) 200 mg tablet Take 400 mg by mouth every 6 hours. 5 Active LORazepam (ATIVAN) 0.5 mg tab Take 0.5 mg by mouth every 8 hours. 6 Active naproxen (NAPROSYN) 500 mg tablet Take 500 mg by mouth one time if needed. 6 Active sertraline (ZOLOFT) 100 mg tablet Take 100 mg by mouth once daily. 2 9 Active triamcinolone (ARISTOCORT; KENALOG) 0.1 % cream Apply topically to affected area(s). 8 Active fluconazole (DIFLUCAN) 150 mg tablet TAKE 1 TABLET BY MOUTH EVERY 3 DAYS FOR 2 DOSES 4 Active ketoconazole 2% shampoo (NIZORAL) 2 % shampoo USE EVERY 1-2 DAYS WHEN FLARED. LEAVE IN A FEW MINUTES BEFORE RINSING. USE TWICE WEEKLY TO PREVENT FLARES 4 Active LORazepam (ATIVAN) 0.5 mg tab TAKE ONE TABLET BY MOUTH EVERY DAY NEEDED FOR ANXIETY 4 Active metoprolol succinate (TOPROL XL) 25 mg Sustained-Release tablet Take 12.5 mg by mouth once daily. 4 Active omeprazole (PRILOSEC) 40 mg Delayed-Release capsule Take 40 mg by mouth once daily. 4 Active PARoxetine (PAXIL) 40 mg tablet Take 40 mg by mouth once daily in the morning. 4 Active Retin-A 0.05 % cream APPLY TOPICALLY AT BEDTIME 4 Active triamcinolone 0.1 % ointment APPLY TO AFFECTED AREA(S) ON BODY OR ARMS/LEGS TOPICALLY TWO TIMES A DAY UNTIL HEALED THEN STOP 4 Active clindamycin (CLEOCIN-T) 1 % lotion APPLY TO AFFECTED AREA(S) TWO TIMES A DAY 4 Active albuterol HFA (PRO-AIR; VENTOLIN; PROVENTIL) 90 mcg/actuation inhalerIndication s:SOB (shortness of breath),Mild intermittent reactive airway disease without complication Inhale 1-2 Puffs by mouth every 4 hours if needed for Shortness Of Breath or Wheezing. 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 Gender Identity Not on file Sexual Orientation Not on file Obstetrics History Last Filed Vital Signs Vital Sign Reading Time Taken Comments Blood Pressure 107/63 03/25/2024 6:59 PM CDT Pulse 72 03/25/2024 6:59 PM CDT Temperature 36.5 C (97.7 F) 03/25/2024 6:59 PM CDT Respiratory Rate 14 03/25/2024 6:59 PM CDT Oxygen Saturation 98% 03/25/2024 6:59 PM CDT Inhaled Oxygen Concentration - - Weight 89.3 kg (196 lb 14.4 oz) 019 11:46 AM 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 PCP - General 03/25/24 Clinic, No Pcp Or . 03/25/24
--- OUTSIDE RECORDS SUMMARY | 2024-07-22 20:39 | XMS_ITS | Encounter Summary ---
Author Organization [place] Address [address] [place] [address] Care Team Providers Care Sheet Rock Installer Name Role Phone Diana Desir [facility] Unavailable Rain Galaviz PAUcheC Unavailable Tavia Wyatt MD Unavailable Erica Farrell [employer] CORPORATE STRATEGY ANALYST Unavailable Rich Barrett MD Unavailable [phone] Neil Kent MD Unavailable Kendrick Desirelle Stanislav [facility] Unavailable Livan Sharif MD Unavailable Catherine Cm MD Unavailable + Valery Veronica-C Unavailable Brea Quinn [employer] CORPORATE STRATEGY ANALYST Unavailable Alfonso Renteria MD Unavailable [phone] Esha GrimmC Primary Care Provider [phone] Radha Lomeli [employer] CORPORATE STRATEGY ANALYST Unavailable Jelena David OD Unavailable [phone] Esha Grimm PA-C Unavailable [phone] Valery Veronica PA-C Unavailable [phone] Rey Tay MD Unavailable Rocky Zepeda DO Unavailable Philip Dumont MD Unavailable [phone] Meredith CarreraC Unavailable [phone] Neil Kent MD Unavailable Juan Pablo Emmanuel MD Unavailable [phone] Audery Waite PA-C Unavailable [phone] Valery Veronica PA-C Unavailable [phone] Encounter Details Date Type Department Care Team (Latest Contact Info) Description 06/21/2024 Travel Social History Tobacco Use Types Packs/Day [...] Answer Date Recorded PHQ-2 Score 1 02/07/[facility] [...] exercise at this level? 20 min 05/07/2024 [place] Depression Scale Answer Date Recorded [place] Depression Score 5 01/14/2021 Last EPDS Self [...] you bought just not last and you didn t have money to get more? No 05/07/2024 Housing Stability Answer Date Recorded Do you have housing? 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 Gender Identity Female 03/02/2021 5:45 PM CDT Sexual Orientation Straight 02/28/2020 12 :51 AM CDT documented as of this encounter Plan of Treatment Upcoming Encounters Date Type Department Care Team (Late st Contact Info) Description 10/23/2024 9:30 AM CDT Office Visit [facility] Neurology [address] [place] [address] [place] [address] [place] [address] Johnny Penn MD 0931 [place], [place] [address] 11/28/2024 7:45 AM CDT Virtual Visit [facility] Gastroenterology Clinic [address] 4th [place] [address] Meredith Carrera PA-C [address] [place] [address] 198925 documented as of this encounter Visit Diagnoses Not on filedocumented in this encounter Additional Health Concerns Assessment Noted Time PHQ-9 Depression Total Score: 3 02/07/20 24 9:33 AM CDT documented as of this encounter Care Teams Sheet Rock Installer Relationship Specialty Start Date End Date Esha Grimm PA-C [address] [place] [address] PCP - General Family Medicine 05/04/23 Diana Desir, [facility] [address] [place] [address] Pharmacist Pharmacist 04/17/21 Rain Galaviz PA-C [address] [place] [address] [address] [place] [address] Physician Stock Shipper Dermatology 04/28/21 Tavia Wyatt MD [address] [place] [address] [address] [place] [address] Dermatology 07/14/21 Erica Farrell APRN CORPORATE STRATEGY ANALYST 6405 [facility] [address] [place], [place] 97[address] Nurse Practitioner Cardiovascular Disease 09/09/21 Rich Barrett MD 516 [facility] 9A [place], [place] [address] Physician Ophthalmology 01/21/22 Neil Kent MD 500 [place], [place] 536415 Dermatology 02/24/22 Diana Desir, [facility] [address] [place] [address] Assigned MTM Pharmacist 04/07/22 Livan Sharif MD [address], [facility] [address] [place] [address] Cardiovascular Disease 05/14/22 Catherine Cm MD [address] [place] [address]7465 Cardiovascular Disease 07/21/22 Valery Veronica, PA-C 909 [place], [place] 9[address]15 Physician Stock Shipper Dermatology 07/21/22 Brea Quinn APRN CORPORATE STRATEGY ANALYST 500 [place], [place] 494945 Nurse Practitioner Dermatology 09/21/22 Alfonso Renteria MD 5775 [facility] 200 [place], [place] 140916 Assigned Neuroscience Provider 04/02/23 Radha Lomeli APRN CORPORATE STRATEGY ANALYST [address] [place] [address] Assigned Heart and Vascular Provider 05/28/23 Jelena David OD [address] [facility] [place] [address] Ophthalmology 06/15/23 Esha Grimm PA-C [address] [place] [address] Assigned PCP 07/16/23 Valery Veronica PA-C 9 [place] [address] Physician Stock Shipper Dermatology 09/19/23 Rey Tay MD 9 [place] [address] MD Gastroenterology 09/20/23 Rocky Zepeda DO 500 [place] [address] Physician Gastroenterology 09/20/23 Philip Dumont MD [address] [place] [address] Physician Ophthalmology 09/22/23 Meredith Carrera PA-C [address] [place] [address] Assigned Gastroenterology Provider 11/01/23 Neil Kent MD [address] [address] Dermatology 11/02/23 [place] [address] [address] Neurological Surgery 12/26/23 Audrey Waite PA-C 500 [place] [address] Physician Stock Shipper Dermatology 02/28/24 Valery Veronica PA-C [address] [place] [address] Physician Stock Shipper Dermatology 04/10/24 documented as of this encounter
--- OUTSIDE RECORDS SUMMARY | 2024-07-22 20:39 | XMS_ITS | Encounter Summary ---
Author Organization [place] Address [address] [place] [address] Care Team Providers Care Supply Coordinator Name Role Phone Diana Desir [facility] Unavailable [phone] Rain Galaviz PAUcheC Unavailable Tavia Wyatt MD Unavailable Erica Farrell SUPERVISOR DRILLING AND SHOOTING GAS PLANT REPAIRER Unavailable Rich Barrett MD Unavailable [phone] Neil Kent MD Unavailable Kendrick Desirelle Stanislav [facility] Unavailable Livan Sharif MD Unavailable Catherine Cm MD Unavailable + Valery Veronica-C Unavailable Brea Quinn SUPERVISOR DRILLING AND SHOOTING GAS PLANT REPAIRER Unavailable Alfonso Renteria MD Unavailable [phone] Esha GrimmC Primary Care Provider [phone] Radha Lomeli SUPERVISOR DRILLING AND SHOOTING GAS PLANT REPAIRER Unavailable Jelena David OD Unavailable [phone] Esha Grimm PA-C Unavailable [phone] Valery Veronica PA-C Unavailable [phone] Rey Tay MD Unavailable Rocky Zepeda DO Unavailable Philip Dumont MD Unavailable [phone] Meredith CarreraC Unavailable [phone] Neil Kent MD Unavailable Juan Pablo Emmanuel MD Unavailable [phone] Audrey Waite PA-C Unavailable [phone] Valery Veronica PA-C Unavailable [phone] Encounter Details Date Type Department Care Team (Late st Contact Info) Description 06/21/2024 4:[address] WORKER Lab [facility] [address] [place] [address] Vaginal discharge; Screen for STD (sexually transmitted disease) Social [...] 1 02/07/2024 [facility] [...] exercise at this level? 20 min 05/07/2024 [place] Depression Scale Answer Date Recorded [place] Depression Score 5 01/14/2021 Last EPDS Self [...] an overnight long term, or couch-surfing.) Yes 05/07/2024 Are you worried [...] PM CDT Legal Sex Female 4:[address] WORKER Gender Identity Female 03/02/2021 5:45 PM CDT Sexual Orientation Straight 02/28/2020 12 :51 AM CDT documented as of this encounter Plan of Treatment Upcoming Encounters Date Type Department Care Team (Late st Contact Info) Description 10/23/2024 9:30 AM CDT Office Visit [facility] Neurology [address], [address] [place] [address] [place] [address] [place] [address] 933367 Johnny Penn MD 6576 [place], [place] 2314[address] 11/28/2024 7:45 AM CDT Virtual Visit [facility] Gastroenterology Clinic [address] 4th [place] [address] Meredith Carrera PA-C [address] [place] [address] documented as of this encounter Procedures Procedure Name Priority Date/Time Associated Diagnosis Comments HIV ANTIGEN ANTIBODY COMBO Routine 06/21/2024 4:[address] WORKER Screen for STD (sexually transmitted disease) TREPONEMA ABS W REFLEX TO RPR AND TITER Routine 06/21/2024 4:[address] WORKER Screen for STD (sexually transmitted disease) WET PREPARATION Routine 06/21/2024 4:[address] WORKER Vaginal discharge NEISSERIA GONORRHOEAE PCR Routine 06/21/2024 4:[address] WORKER Screen for STD (sexually transmitted disease) CHLAMYDIA TRACHOMATIS PCR Routine 06/21/2024 4:[address] WORKER Screen for STD (sexually transmitted disease) documented in this encounter Results * Treponema Abs w Reflex to RPR and Titer (06/21/2024 4:[address] WORKER) Treponema Antibody Total Nonreactive Nonreactive 06/22/2024 6:[address] WORKER [facility]EN DO Blood BLOOD SPECIMEN / Unknown Venipuncture / Unknown 06/21/2024 4:[address] WORKER 06/21/2024 4:[address] WORKER us Esha Grimm PA-C LAB - BLOOD ORDERABLES Final R esult [facility]PROT/ENDO [facility]/Prot/Endo 500 [facility] [address] [facility], Room [address] [place] [address] * HIV Antigen Antibody Combo (06/21/2024 4:[address] WORKER) HIV Antigen Antibody Combo Nonreactive Nonreactive 06/22/2024 6:[address] WORKER [facility] Comment:Negative HIV-1 p24 a ntigen [...] BLOOD SPECIMEN / Unknown Venipuncture / Unknown 06/21/2024 4:[address] WORKER 06/21/2024 4:[address] WORKER Esha Grimm PA-C LAB - BLOOD ORDERABLES Final R esult Performing Organization Address [facility] Co de Phone Number [facility] 500 [facility], Room [address]580 [place] [address] * Neisseria gonorrhoeae PCR (06/21/2024 4:[address] WORKER) Neisseria gonorrhoeae Negative Negative 06/22/2024 5:[address] WORKER [facility] Comment:Negative for N. gono rrhoeae rRNA by administrative support assoc mediated amplification. A negative result by administrative support assoc mediated amplification does not preclude the presence of C. trachomatis infection because results are dependent on proper and adequate collection, absence of inhibitors and sufficient rRNA to be detected. Swab VAGINAL STRUCTURE / Unknown Non-blood Collection / Unknown 06/21/2024 4:[address] WORKER 06/21/2024 4:[address] WORKER Esha Grimm PA-C LAB - MICRO GENERAL ORDERABLES Final Result Performing Organization Address [facility] de Phone Number [facility] Inf. Diseases Diag. Lab [address] [facility], [address] [place] [address] * Chlamydia trachomatis PCR (06/21/2024 4:[address] WORKER) Chlamydia trachomatis Negative Negative 06/22/2024 5:[address] WORKER [facility] Comment:A negative result by administrative support assoc mediated amplification does not preclude the presence of C. trachomatis infection because results are dependent on proper and adequate collection, absence of inhibitors and sufficient rRNA to be detected. Swab VAGINAL STRUCTURE / Unknown Non-blood Collection / Unknown 06/21/2024 4:[address] WORKER 06/21/2024 4:[address] WORKER us Esha Grimm PA-C LAB - MICRO GENERAL ORDERABLES Final Result [facility] Inf. Diseases Diag. Lab [address] [facility], [address] [place] [address], [facility] * (ABNORMAL) Wet preparation (06/21/2024 4:[address] WORKER) Trichomonas Absent Absent REINA 06/21/2024 4:[address] WORKER [facility] Yeast Present(A) Absent [facility] 06/21/2024 4:[address] WORKER [facility] Clue Cells Absent Absent [facility] 06/21/2024 4:[address] WORKER [facility] WBCs/high power field 3+(A) None REINA 06/21/2024 4:[address] WORKER [facility] Swab VAGINAL STRUCTURE / Unknown Non-blood Collection / Unknown 06/21/2024 4:[address] WORKER 06/21/2024 4:[address] WORKER Esha Grimm PA-C LAB - MICRO GENERAL ORDERABLES Final Result [facility] Lab [address] [facility] Lab (no room number, 1st floor of clinic) [place] [address], [facility] documented in this encounter Visit Diagnoses Diagnosis Vaginal discharge Leukorrhea, not specified as infective Screen for STD (sexually transmitted disease) Screening examination for venereal disease documented in this encounter Additional Health Concerns Assessment Noted Time PHQ-9 Depression Total Score: 3 02/07/20 24 9:33 AM CDT documented as of this encounter Care Teams Supply Coordinator Relationship Specialty Start Date End Date Esha Grimm PA-C [address] [place] [address] PCP - General Family Medicine 05/04/23 Diana Desir, [facility] 3033 [place] [address] Pharmacist Pharmacist 04/17/21 Rain Galaviz PA-C [address] [place] [address] [address] [place] [address] [address] Reporter Dermatology 04/28/21 Tavia Wyatt MD [address] [place] [address] [address] Lara [address] [place] [address] Dermatology 07/14/21 Erica Farrell APRN GAS PLANT REPAIRER [address] [place] [address]120[address] Nurse Practitioner Cardiovascular Disease 09/09/21 Rich Barrett MD [address] [place] [address] [address] [place], [place] 6[address] Physician Ophthalmology 01/21/22 Neil Kent MD 500 [place] [address] Dermatology 02/24/22 Diana Desir, [facility] [address] [place] [address] Assigned MTM Pharmacist 04/07/22 Livan Sharif MD [address] [place] [address] Cardiovascular Disease 05/14/22 Catherine Cm MD [address] [place] 788195 Cardiovascular Disease 07/21/22 Valery Veronica PA-C [address] [place] [address] [address] [address] Reporter Dermatology 07/21/22 Brea Quinn APRN GAS PLANT REPAIRER [address] [place] [address] 341745 Nurse Practitioner Dermatology 09/21/22 Alfonso Renteria MD 5775 [facility] 200 [place] [address] Assigned Neuroscience Provider 04/02/23 Radha Lomeli APRN GAS PLANT REPAIRER [address] [place] [id number] [place] [address] Assigned Heart and Vascular Provider 05/28/23 Jelena David OD [facility] [facility] [place] [address] Ophthalmology 06/15/23 Esha Grimm PA-C [address] [place] [address] Assigned PCP 07/16/23 Valery Veronica PA-C [address] [place] [address]64425 [address] Real[address] Reporter Dermatology 09/19/23 Rey Tay MD [address] [place] [address] 000215 MD Gastroenterology 09/20/23 Rocky Zepeda DO 500 [place] [address] Physician Gastroenterology 09/20/23 Philip Dumont MD 516 [place] [address] Physician Ophthalmology 09/22/23 Meredith Carrera PA-C 909 [place], [place] 988385 Assigned Gastroenterology Provider 11/01/23 Neil Kent MD [address] [place] [address] Dermatology 11/02/23 [place] [address] [place] [facility] [place] [address] Neurological Surgery 12/26/23 Audrey Waite PA-C 500 [place] [address] Reporter Dermatology 02/28/24 Valery Veronica PA-C [address] [place] [address] Reporter Dermatology 04/10/24 documented as of this encounter
--- OUTSIDE RECORDS SUMMARY | 2024-07-22 20:39 | XMS_ITS | Encounter Summary ---
Author Organization [place] Address [address] [place] [address] Care Team Providers Care Gas Compressor Turbine Operator Name Role Phone Diana Desir [facility] Unavailable [phone] Rain Galaviz PAUcheC Unavailable Tavia Wyatt MD Unavailable Erica Farrell SALES REPRESENTATIVE FACILITY SERVICES PSYCHIATRY TEACHER Unavailable Rich Barrett MD Unavailable [phone] Neil Kent MD Unavailable Kendrick Desirelle Stanislav [facility] Unavailable Livan Sharif MD Unavailable Catherine Cm MD Unavailable + Valery Veronica-C Unavailable Brea Quinn SALES REPRESENTATIVE FACILITY SERVICES PSYCHIATRY TEACHER Unavailable Alfonso Renteria MD Unavailable [phone] Esha GrimmC Primary Care Provider [phone] Radha Lomeli SALES REPRESENTATIVE FACILITY SERVICES PSYCHIATRY TEACHER Unavailable Jelena David OD Unavailable Esha Grimm PA-C Unavailable [phone] Valery VeronicaC Unavailable Rey Tay MD Unavailable Rocky Zepeda DO Unavailable Philip Dumont MD Unavailable Meredith CarreraC Unavailable [phone] Neil Kent MD Unavailable Juan Pablo Emmanuel MD Unavailable Audrey WaiteC Unavailable [phone] Valery VeronicaC Unavailable [phone] Herminia Hatch MD Unavailable Encounter Details Date Type Department Care Team (Late st Contact Info) Description 07/17/2024 12:30 PM MOTION AND TIME STUDY TEACHER E-Visit [facility] [address] [place] [address] Esha Grimm PA-C [id number] [place] [address] Bacterial vaginosis (Primary Dx) Social History Tobacco Use Types [...] 05/07/2024 How often do you attend [facility]? 1 to 4 [...] PHQ-2 Score 1 02/07/2024 [facility] - [...] exercise at this level? 20 min 05/07/2024 [place] Depression Scale Answer Date Recorded [place] Depression Score 5 01/14/2021 Last EPDS Self [...] PM CDT Legal Sex Female 4:13 AM MOTION AND TIME STUDY TEACHER Gender Identity Female 03/02/2021 5:45 PM CDT Sexual Orientation Straight 02/28/2020 12 :51 AM CDT documented as of this encounter Miscellaneous Notes * Telephone Encounter - Esha Grimm PA-C - 07/17/2024 12:44 PM CST Provider E-Visit time total (minutes): 12 ON AND TIME STUDY TEACHER documented in this encounter Plan of Treatment Upcoming Encounters Date Type Department Care Team (Late st Contact Info) Description 10/23/2024 9:30 AM CDT Office Visit [facility] Neurology [facility] - [address], [address] [place] [address] [place] [address] [place] [address] Johnny Penn MD [address] [place] [address] 11/28/2024 7:45 AM CDT Virtual Visit [facility] Gastroenterology Clinic [address] 4th [place] [address] Meredith Carrera PA-C [address] [place] [address] documented as of this encounter Visit Diagnoses Diagnosis Bacterial vaginosis- Primary Vaginitis and vulvovaginitis, unspecified documented in this encounter Additional Health Concerns Assessment Noted Time PHQ-9 Depression Total Score: 3 02/07/20 24 9:33 AM CDT documented as of this encounter Care Teams Gas Compressor Turbine Operator Relationship Specialty Start Date End Date Esha Grimm PA-C [address] [place] [address] PCP - General Family Medicine 05/04/23 Diana Desir, [facility] 3033 [place] [address] Pharmacist Pharmacist 04/17/21 Rain Galaviz PA-C [address] [place] [address] [place] [address] Physician Electron Beam Photo Mask Technician Dermatology 04/28/21 Tavia Wyatt MD [address] [place] [address] [place] [address] Dermatology 07/14/21 Erica Farrell APRN PSYCHIATRY TEACHER [address] [place], [place] 68[address] Nurse Practitioner Cardiovascular Disease 09/09/21 Rich Barrett MD 516 [facility] [address]A [place], [place] [address] Physician Ophthalmology 01/21/22 Neil Kent MD 500 [place], [place] [address]375 Dermatology 02/24/22 Diana Desir, [facility] 3033 [place] [address] Assigned [facility] Pharmacist 04/07/22 Livan Sharif MD [address], [facility] [address] [place], [place] [address] Cardiovascular Disease 05/14/22 Catherine Cm MD [address] 369735 Cardiovascular Disease 07/21/22 Valery Veronica, PA-C 909 [place], [place] [address] Physician Electron Beam Photo Mask Technician Dermatology 07/21/22 Brea Quinn APRN PSYCHIATRY TEACHER 500 [place], [place] [id number] Nurse Practitioner Dermatology 09/21/22 Alfonso Renteria MD 5775 [facility] 200 [place] [address] Assigned Neuroscience Provider 04/02/23 Radha Lomeli APRN PSYCHIATRY TEACHER 6405 [facility] [address] [place] [address] Assigned Heart and Vascular Provider 05/28/23 Jelena David OD [address] [facility] [address] [place] [id number] MD Ophthalmology 06/15/23 Esha Grimm PA-C [address] [place] [address] Assigned PCP 07/16/23 Valery Veronica PA-C [address] [place] [address] 8946[address] Physician Electron Beam Photo Mask Technician Dermatology 09/19/23 Rey Tay MD [address] [place] [address] 6144[address] Gastroenterology 09/20/23 Rocky Zepeda DO [address] [place] [address] 803015 Physician Gastroenterology 09/20/23 Philip Dumont MD [address] [place] [address] 011005 Physician Ophthalmology 09/22/23 Meredith Carrera PA-C [address] [place] [address] Assigned Gastroenterology Provider 11/01/23 Neil Kent MD [address] [address] Dermatology 11/02/23 [place] [address] [place] [address] Neurological Surgery 12/26/23 Audrey Waite PA-C 500 [place] [address] Physician Electron Beam Photo Mask Technician Dermatology 02/28/24 Valery Veronica PA-C 567[address] [place], [place] [address] Physician Electron Beam Photo Mask Technician Dermatology 04/10/24 Herminia Hatch MD [facility]5 [place] [address] Assigned Rheumatology Provider 07/02/24 documented as of this encounter
--- OUTSIDE RECORDS SUMMARY | 2024-07-22 20:39 | XMS_ITS | Referral Summary ---
Author Organization [facility] Address [address] [place] [address] Care Team Providers Care Leather Fitter Name Role Phone Diana Desir [facility] Unavailable Rain Galaviz PAUcheC Unavailable Tavia Wyatt MD Unavailable Erica Farrell POLL CLERK TAIL BOARD WORKER Unavailable Rich Barrett MD Unavailable [phone] Neil Kent MD Unavailable Kendrick Desirelle Stanislav [facility] Unavailable Livan Sharif MD Unavailable Catherine Cm MD Unavailable + Valery Veronica-C Unavailable Brea Quinn POLL CLERK TAIL BOARD WORKER Unavailable Alfonso Renteria MD Unavailable [phone] Esha GrimmC Primary Care Provider Radha Lomeli POLL CLERK TAIL BOARD WORKER Unavailable Jelena David OD Unavailable Alfa, Esha M PA-C Unavailable [phone] Valery Veronica PA-C Unavailable Rey Tay MD Unavailable Rocky Zepeda DO Unavailable Philip Dumont MD Unavailable Meredith Carrera PA-C Unavailable Neil Kent MD Unavailable Juan Pablo Emmanuel MD Unavailable Audrey Waite PA-C Unavailable [phone] Valery Veronica PA-C Unavailable Herminia Hatch MD Unavailable Encounters Date Type Department Care Team Description 07/17/2024 12:30 PM COMMERCIAL CREDIT REVIEWER E-Visit [address] [phone] Esha Grimm PA-C Bacterial vaginosis (Primary Dx) 07/16/2024 MyC Medical Advice [address] [phone] Esha Grimm PA-C Patient Request for Note/Letter; Medicatio... 07/12/2024 Telephone [facility] [address], [address] [place] [address] Johnny Penn MD Appointment 06/21/2024 Travel 06/21/2024 4:30 PM COMMERCIAL CREDIT REVIEWER Lab [facility] [address] [place] [address] Vaginal discharge; Screen for STD (sexually transmitted disease) 06/21/2024 MyC Medical Advice [address] [address] Antonella Eldridge RN 06/21/2024 PRE VISIT [facility] [address] [place] [address], [address] [place] [phone] Johnny Penn MD Previsit 06/20/2024 MyC Medical Advice [facility] [address] [facility] [address] [place] [phone] Carley Myles RN 06/20/2024 Refill [facility] [address] [place] [phone] Brea Quinn, POLL CLERK TAIL BOARD WORKER Refill Request (Tacrolimus 0.1% ointment & Triamcinolone 0.1% ointment) 06/20/2024 Telephone [facility] [address] [facility] [address] [place] [phone] Radha Lomeli, POLL CLERK TAIL BOARD WORKER Call Back 06/08/2024 Telephone [facility] [address] [place] [phone] Esha Grimm PA-C Medication Question 06/06/2024 Orders Only [facility] [address] [place] [phone] Outside, Provider 06/05/2024 Travel 06/05/2024 5:15 PM COMMERCIAL CREDIT REVIEWER Office Visit [facility] [place] [address] [place] [phone] Jaron Hager PABaldo Lymphadenopathy (Primary Dx); Chest pain, unspecified type 06/05/2024 MyC Medical Advice [facility] [place] [address] [place] [phone] Herminia Hatch MD 05/31/2024 4:30 PM COMMERCIAL CREDIT REVIEWER Lab [facility] [address] [place] [phone] Psoriatic arthritis (H); Tuberculosis screening; Encounter for hepatitis C screening test for low risk patient 05/31/2024 Travel 05/31/2024 3:30 PM COMMERCIAL CREDIT REVIEWER Office Visit [facility] [address] [place] [address] Audrey Díaz, Herminia Koo MD Psoriatic arthritis (H) (Primary Dx); Psoriasis; Chronic bilateral low back pain without sciatica; Encounter to discuss treatment options; Tuberculosis screening; Need for hepatitis B screening test; Encounter for hepatitis C screening test for low risk patient 05/28/2024 Travel 05/18/2024 Refill [facility] [address] [facility] [address] [place] [address] Radha Lomeli APRN TAIL BOARD WORKER Refill Request (metoprolol) 05/17/2024 9:30 AM COMMERCIAL CREDIT REVIEWER Virtual Visit [address] [phone] Diana Desir, [facility] Anxiety (Primary Dx); Moderate major depression (H); 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 with body mass index (BMI) of 31.0 to 31.9 in adult 05/14/2024 Travel 05/14/2024 2:50 PM COMMERCIAL CREDIT REVIEWER Therapy Visit [facility] [address] [place] [address] Ingris Thompson PT Neck pain (Primary Dx) 05/11/2024 MyC Medical Advice [address] [phone] Esha Grimm PA-C 05/08/2024 Telephone [facility] [address] [facility], [address] [place] [address] Alfonso Renteria MD Forms (DMV(LOC)) 05/08/2024 Travel 05/08/2024 1:30 PM CDT Office Visit [address] [phone] Lauren Claudio PA-C Holm, Kayla M, PA-C Routine general medical examination at a health care facility (Primary Dx); Other ventricular tachycardia (H); CYP2C9 intermediate metabolizer (H); Moderate major depression (H); Shortness of breath; Psoriasis; Vaginal discomfort 05/07/2024 Travel 04/24/2024 Telephone [facility] [address] [facility] [address] [place] [phone] Natali Serrano RN 04/24/2024 MyC Medical Advice [facility] [address] [facility] [address] [place] [phone] Radha Lomeli APRN TAIL BOARD WORKER 04/24/2024 Telephone [facility] [address] [facility] [address] [place] [phone] Rani Gross RN Results 2024 Travel 2024 10:00 AM CDT Lab [facility] [address] [place] [phone] Screen for STD (sexually transmitted disease) 04/22/2024 8:50 AM CDT E-Visit [address] [phone] Esha Grimm PA-C Screen for STD (sexually transmitted disease) (Primary Dx) from Last 3 Months Allergies Active Allergy Reactions Criticality Noted Date Comments Vancomycin 04/26/2022 Medications levonorgestrel (MIRENA) 52 MG (20 mcg/day) IUD by Intrauterine route once Active clindamycin (CLEOCIN T) 1 % external lotionIndicatio ns:Acne, unspecified acne type Apply topically 2 times daily 60 mL 1 4 Active tretinoin (RETIN-A) 0.05 % external creamIndication s:Acne, unspecified acne type Apply topically at bedtime 45 g 4 Active omeprazole (PRILOSEC) [address] capsuleIndicati ons:Epigastric pain TAKE 1 CAPSULE BY MOUTH DAILY. 90 capsule 3 4 Active Multiple Vitamin (MULTIVITAMIN ADULT PO) Active Digestive Enzymes (DIGESTIVE ENZYME PO) Active Probiotic Product (PROBIOTIC BLEND PO) Active LORazepam (ATIVAN) 0.5 MG tabletIndicatio ns:Anxiety Take 1 tablet (0.5 mg) by mouth daily as needed for anxiety 30 tablet 4 Active ketoconazole (NIZORAL) 2 % external shampooIndicati ons:Psoriasis Use every 1-2 days when flared. Leave in few minutes before rinsing. Use twice weekly to prevent flares. 120 mL 11 4 Active PARoxetine (PAXIL) 40 MG tabletIndicatio ns:Anxiety TAKE ONE TABLET BY MOUTH EVERY MORNING 90 tablet 1 4 Active metoprolol succinate ER (TOPROL XL) 25 MG 24 hr tabletIndicatio ns:Palpitations Take 0.5 tablets (12.5 mg) by mouth daily. 45 tablet 3 4 Active tacrolimus (PROTOPIC) 0.1 % external ointmentIndicat ions:Psoriasis Apply thin layer to psoriasis on thinner skin of face/genitals up to twice daily as needed. 60 g 4 Active triamcinolone (KENALOG) 0.1 % external ointmentIndicat ions:Psoriasis Apply topically 2 times daily. To psoriasis on body or arms/legs until healed then stop 80 g 4 Active metroNIDAZOLE (METROGEL) 0.75 % vaginal gelIndications: Bacterial vaginosis Place 1 applicator (5 g) vaginally daily for 7 days. 35 g 5 025 Active fluconazole (DIFLUCAN) 150 MG tabletIndicatio ns:Pily vaginitis Take 1 tablet (150 mg) by mouth every 3 days for 3 doses. 3 tablet 4 024 Hospital, Clinic, or Other Facility Administered [...] available in ED consider consultation with ED Hemotherapist. Relevant Medical History (at time Care Plan [...] to initiation of Care Plan: 11 [facility] Hospital Admissions in 12 months prior to initiation of Care Plan: 0 (she has technically had 2 admissions due to related issues with OBGYN) Expected home rescue plan: Metoprolol 12.5mg PRN PCP: Marija Edgar APRN CNP - Family Medicine - [facility] Specialists: Dr. Galo Burrell - Cardiology - [facility] Dr. 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 (04/17/2021): 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 KALYN (generalized anxiety disorder) 09/29/2020 Right ureteral stone 05/27/2020 Overview (05/27/2020): Added automatically from request for surgery [id number] Left ureteral stone 05/27/2020 Overview (05/27/2020): Added automatically from request for surgery [id number] Head ache 02/18/2020 Seizure 05/02/2019 Depressed 05/02/2019 Anxiety 05/02/2019 Tobacco abuse counseling 05/02/2019 Psoriasis 05/02/2019 Resolved Problems Problem Noted Date Diagnosed Date Resolved Date Neck pain 08/25/2022 06/29/2024 Lower back pain 08/25/2022 08/17/2023 Term 01/13/2021 10/11/2022 Encounter for triage in patient 12/09/2020 04/18/2023 Asthma 06/04/2020 02/07/2024 Immunizations Name Administration Dates Next Due DTAP (<7y) 11/23/2004, 1,2000,06/23 Flu, Unspecified 05/26/2009, 7,07/22/2003,06/03 HEPATITIS A (PEDS 12M-18Y) 03/01/2012,08/10/2011 HIB (PRP-T) 2000,2000,2000 HPV Quadrivalent 03/01/2012,10/27/2011, 2 HepB, Unspecified 08/07/2001,03/28/2001,11/05/19 01 Hepatitis A Vac Ped/Adol-3 Dose 03/01/2012,08/10 Hepatitis B, Peds 08/07/2001,03/28/2001,11/05/19 01 Influenza (H1N1) 06/06/2009 Influenza (prior to 2023) 07/14/2012,,05/13/2010,05/26,07/22/2003 Influenza Vaccine >6 months,quad, PF ,03/27/2020,05/02/2019,05/16,04/12/2016,08/12/2014,04/24/2013 Influenza Vaccine IM Ages 6- 35 Months 4 Valent (PF) 04/24/2013 Influenza, Split Virus, Triv alent, Pf (Fluzone\Fluarix) 07/14/2012,05/25/2011,05/13/2010 MMR 01/15/2021,11/23/2004,08/07/2001 Meningococcal ACWY (Menactra ) 08/10/2011 Meningococcal ACWY (Menveo ) 05/16/2017 Nasal Influenza Vaccine 2-49 (FluMist) 7 [...] week 05/07/2024 How often do you attend [facility]? 1 to 4 [...] Answer Date Recorded PHQ-2 Score 1 02/07/2024 [facility] Health - Occupational Stress Questionnaire Answer [...] exercise at this level? 20 min 05/07/2024 [place] Depression Scale Answer Date Recorded [place] Depression Score 5 01/14/2021 Last EPDS Self [...] PM CDT Legal Sex Female 4:13 AM COMMERCIAL CREDIT REVIEWER Gender Identity Female 03/02/2021 5:45 PM CDT Sexual Orientation Straight 02/28/2020 12 :51 AM CDT Last Filed Vital Signs Vital Sign Reading Time Taken Comments Blood Pressure 104/62 06/05/2024 5:21 PM COMMERCIAL CREDIT REVIEWER Pulse 79 06/05/2024 5:21 PM COMMERCIAL CREDIT REVIEWER Temperature 36.7 C (98.1 F) 06/05/2024 5:21 PM COMMERCIAL CREDIT REVIEWER Respiratory Rate 18 06/05/2024 5:21 PM COMMERCIAL CREDIT REVIEWER Oxygen Saturation 99% 06/05/2024 5:21 PM COMMERCIAL CREDIT REVIEWER Inhaled Oxygen Concentration - - Weight 90.9 kg (200 lb 4.8 oz) 06/05/2024 5:21 P M COMMERCIAL CREDIT REVIEWER Height 167.6 cm (5' 6) 05/31/2024 3:37 PM COMMERCIAL CREDIT REVIEWER Body Mass Index 32.33 05/31/2024 3:37 PM COMMERCIAL CREDIT REVIEWER Plan of Treatment Upcoming Encounters Date Type Department Care Team (Late st Contact Info) Description 10/23/2024 9:30 AM CDT Office Visit [facility] [address] [place] [address], [address] [place] [phone] [place] [address] [place] [address] Johnny Penn MD [address] [facility], [place] [address] 11/28/2024 7:45 AM CDT Virtual Visit [facility] [address] [place] [phone] Meredith Carrera PA-C [address] [place] [address] Procedures Procedure Name Priority Date/Time Associated Diagnosis Comments NEISSERIA GONORRHOEAE PCR Routine 06/21/2024 4:22 PM COMMERCIAL CREDIT REVIEWER Screen for STD (sexually transmitted disease) CHLAMYDIA TRACHOMATIS PCR Routine 06/21/2024 4:22 PM COMMERCIAL CREDIT REVIEWER Screen for STD (sexually transmitted disease) WET PREPARATION Routine 06/21/2024 4:22 PM COMMERCIAL CREDIT REVIEWER Vaginal discharge TREPONEMA ABS W REFLEX TO RPR AND TITER Routine 06/21/2024 4:22 PM COMMERCIAL CREDIT REVIEWER Screen for STD (sexually transmitted disease) HIV ANTIGEN ANTIBODY COMBO Routine 06/21/2024 4:22 PM COMMERCIAL CREDIT REVIEWER Screen for STD (sexually transmitted disease) HLA RESULT REPORT 06/06/2024 2:0 4 PM COMMERCIAL CREDIT REVIEWER GROUP A STREPTOCOCCUS PCR THROAT SWAB Routine 06/05/2024 6:28 PM COMMERCIAL CREDIT REVIEWER Lymphadenopathy STREPTOCOCCUS A RAPID SCREEN W REFELX TO PCR Routine 06/05/2024 6:28 PM COMMERCIAL CREDIT REVIEWER Lymphadenopathy EKG 12-LEAD COMPLETE W/READ - CLINICS Routine 06/05/2024 Lymphadenopathy QUANTIFERON-TB GOLD PLUS Routine 05/31/2024 4:44 PM COMMERCIAL CREDIT REVIEWER Psoriatic arthritis (H) Tuberculosis screening Encounter for hepatitis C screening test for low risk patient QUANTIFERON TB GOLD PLUS Routine 05/31/2024 4:44 PM COMMERCIAL CREDIT REVIEWER Psoriatic arthritis (H) Tuberculosis screening Encounter for hepatitis C screening test for low risk patient QUANTIFERON TB GOLD PLUS PURPLE TUBE Routine 05/31/2024 4:44 PM COMMERCIAL CREDIT REVIEWER Psoriatic arthritis (H) Tuberculosis screening Encounter for hepatitis C screening test for low risk patient QUANTIFERON TB GOLD PLUS YELLOW TUBE Routine 05/31/2024 4:44 PM COMMERCIAL CREDIT REVIEWER Psoriatic arthritis (H) Tuberculosis screening Encounter for hepatitis C screening test for low risk patient QUANTIFERON TB GOLD PLUS GREEN TUBE Routine 05/31/2024 4:44 PM COMMERCIAL CREDIT REVIEWER Psoriatic arthritis (H) Tuberculosis screening Encounter for hepatitis C screening test for low risk patient QUANTIFERON TB GOLD PLUS GIL TUBE Routine 05/31/2024 4:44 PM COMMERCIAL CREDIT REVIEWER Psoriatic arthritis (H) Tuberculosis screening Encounter for hepatitis C screening test for low risk patient RHEUMATOID FACTOR Routine 05/31/2024 4:4 3 PM COMMERCIAL CREDIT REVIEWER Psoriatic arthritis (H) Tuberculosis screening Encounter for hepatitis C screening test for low risk patient CYCLIC CITRULLINATED PEPTIDE ANTIBODY IGG Routine 05/31/2024 4:43 PM COMMERCIAL CREDIT REVIEWER Psoriatic arthritis (H) Tuberculosis screening Encounter for hepatitis C screening test for low risk patient HEPATITIS C ANTIBODY Routine 05/31/2024 4:42 PM COMMERCIAL CREDIT REVIEWER Psoriatic arthritis (H) Tuberculosis screening Encounter for hepatitis C screening test for low risk patient HEPATITIS B SURFACE ANTIGEN Routine 05/31/2024 4:42 PM COMMERCIAL CREDIT REVIEWER Psoriatic arthritis (H) Tuberculosis screening Encounter for hepatitis C screening test for low risk patient HEPATITIS B SURFACE ANTIBODY Routine 05/31/2024 4:42 PM COMMERCIAL CREDIT REVIEWER Psoriatic arthritis (H) Tuberculosis screening Encounter for hepatitis C screening test for low risk patient HEPATITIS B CORE ANTIBODY Routine 05/31/2024 4:42 PM COMMERCIAL CREDIT REVIEWER Psoriatic arthritis (H) Tuberculosis screening Encounter for hepatitis C screening test for low risk patient ERYTHROCYTE SEDIMENTATION RATE AUTO Routine 05/31/2024 4:42 PM COMMERCIAL CREDIT REVIEWER Psoriatic arthritis (H) Tuberculosis screening Encounter for hepatitis C screening test for low risk patient CRP INFLAMMATION Routine 05/31/2024 4:42 PM COMMERCIAL CREDIT REVIEWER Psoriatic arthritis (H) Tuberculosis screening Encounter for hepatitis C screening test for low risk patient HLA-B27 TYPING Routine 05/31/2024 4:41 PM COMMERCIAL CREDIT REVIEWER Psoriatic arthritis (H) Tuberculosis screening Encounter for hepatitis C screening test for low risk patient LIPID REFLEX TO DIRECT LDL PANEL Routine [...] CDT Screen for STD (sexually transmitted disease) GYNECOLOGIC CYTOLOGY Routine 09/22/2021 3:14 PM CDT Encounter for screening for cervical cancer from Last 3 Months or Most Recently Relevant to Health Maintenance Results * HIV Antigen Antibody Combo (06/21/2024 4:22 PM COMMERCIAL CREDIT REVIEWER) Only the most recent of2 resultswithin the time period is included. HIV Antigen Antibody Combo Nonreactive Nonreactive 06/22/2024 6:16 PM COMMERCIAL CREDIT REVIEWER [facility] Comment:Negative HIV-1 p24 a ntigen [...] Unknown Venipuncture / Unknown 06/21/2024 4:22 PM COMMERCIAL CREDIT REVIEWER 06/21/2024 4:30 PM COMMERCIAL CREDIT REVIEWER Esha Grimm PA-C LAB - BLOOD ORDERABLES Final R esult Performing Organization Address City/[facility]/ZIP Co de Phone Number [facility] [place] [facility] Lab [address] [facility], [address] * Treponema Abs w Reflex to RPR and Titer (06/21/2024 4:22 PM COMMERCIAL CREDIT REVIEWER) Only the most recent of2 resultswithin the time period is included. Treponema Antibody Total Nonreactive Nonreactive 06/22/2024 6:47 PM COMMERCIAL CREDIT REVIEWER SPECIALTY CORE/PROT/EN DO Blood BLOOD SPECIMEN / Unknown Venipuncture / Unknown 06/21/2024 4:22 PM COMMERCIAL CREDIT REVIEWER 06/21/2024 4:30 PM COMMERCIAL CREDIT REVIEWER Esha Grimm PA-C LAB - BLOOD ORDERABLES Final R ult Performing Organization Address [facility] Co de Phone Number SPECIALTY CORE/PROT/ENDO Specialty Core/Prot/Endo [address] [facility], [address] * (ABNORMAL) Wet preparation (06/21/2024 4:22 PM COMMERCIAL CREDIT REVIEWER) Only the most recent of3 resultswithin the time period is included. Trichomonas Absent Absent REINA 06/21/2024 4:42 PM COMMERCIAL CREDIT REVIEWER [facility] Yeast Present(A) Absent REINA 06/21/2024 4:42 PM COMMERCIAL CREDIT REVIEWER [facility] Clue Cells Absent Absent REINA 06/21/2024 4:42 PM COMMERCIAL CREDIT REVIEWER [facility] WBCs/high power field 3+(A) None REINA 06/21/2024 4:42 PM COMMERCIAL CREDIT REVIEWER [facility] Swab VAGINAL STRUCTURE / Unknown Non-blood Collection / Unknown 06/21/2024 4:22 PM COMMERCIAL CREDIT REVIEWER 06/21/2024 4:36 PM COMMERCIAL CREDIT REVIEWER us Esha Grimm PA-C LAB - MICRO GENERAL ORDERABLES Final Result LABORATORY [facility] [address] [facility] (no room number, 1st floor of clinic) [place] [address], [facility] * Neisseria gonorrhoeae PCR (06/21/2024 4:22 PM COMMERCIAL CREDIT REVIEWER) Neisseria gonorrhoeae Negative Negative 06/22/2024 5:48 PM COMMERCIAL CREDIT REVIEWER [facility] Comment:Negative for N. gono rrhoeae rRNA by physician's aide mediated amplification. A negative result by physician's aide mediated amplification does not preclude the presence of C. trachomatis infection because results are dependent on proper and adequate collection, absence of inhibitors and sufficient rRNA to be detected. Swab VAGINAL STRUCTURE / Unknown Non-blood Collection / Unknown 06/21/2024 4:22 PM COMMERCIAL CREDIT REVIEWER 06/21/2024 4:36 PM COMMERCIAL CREDIT REVIEWER us Esha Grimm PA-C LAB - MICRO GENERAL ORDERABLES Final Result [facility] Inf. Diseases Diag. Lab [address] [facility], [address] [place] [address], [facility] * Chlamydia trachomatis PCR (06/21/2024 4:22 PM COMMERCIAL CREDIT REVIEWER) Chlamydia trachomatis Negative Negative 06/22/2024 5:48 PM COMMERCIAL CREDIT REVIEWER [facility] Comment:A negative result by physician's aide mediated amplification does not preclude the presence of C. trachomatis infection because results are dependent on proper and adequate collection, absence of inhibitors and sufficient rRNA to be detected. Swab VAGINAL STRUCTURE / Unknown Non-blood Collection / Unknown 06/21/2024 4:22 PM COMMERCIAL CREDIT REVIEWER 06/21/2024 4:36 PM COMMERCIAL CREDIT REVIEWER us Esha Grimm PA-C LAB - MICRO GENERAL ORDERABLES Final Result [facility] Inf. Diseases Diag. Lab [address] [facility], [address] [place] [address] * HLA Result Report (06/06/2024 2:04 PM COMMERCIAL CREDIT REVIEWER) us Provider Outside LAB - IMMUNOLOGY ORDERABLES Fin al Result * Streptococcus A Rapid Screen w/Reflex to PCR - Clinic Collect (06/05/2024 6:28 PM COMMERCIAL CREDIT REVIEWER) Group A Strep antigen Negative Negative 06/05/2024 6:50 PM COMMERCIAL CREDIT REVIEWER [facility] Swab STRUCTURE OF ANTERIOR PORTION OF NECK / Unknown Non-blood Collection / Unknown 06/05/2024 6:28 PM COMMERCIAL CREDIT REVIEWER 06/05/2024 6:44 PM COMMERCIAL CREDIT REVIEWER Jaron Hager PA-C LAB - MICRO GENERAL ORD ERABLES Final Result Performing Organization Address City/[facility]/ZIP Co de Phone Number [facility] [address] [facility] (no room number, 1st floor of clinic) [place] [address], [facility] * Group A Streptococcus PCR Throat Swab (06/05/2024 6:28 PM COMMERCIAL CREDIT REVIEWER) Pathologist [facility] Group A strep by PCR Not Detected Not Detected 06/06/2024 4:18 PM COMMERCIAL CREDIT REVIEWER [facility] Swab STRUCTURE OF ANTERIOR PORTION OF NECK / Unknown Non-blood Collection / Unknown 06/05/2024 6:28 PM COMMERCIAL CREDIT REVIEWER 06/05/2024 6:50 PM COMMERCIAL CREDIT REVIEWER Narrative [facility] - 06/06/2024 4:18 PM COMMERCIAL CREDIT REVIEWER The Xpert Xpress Strep A test, performed on the [employer] Instrument Systems, is a rapid, qualitative in vitro diagnostic test for the detection of Streptococcus pyogenes (Group A -hemolytic Streptococcus, Strep A) in throat swab specimens [...] reaction (PCR) to detect Streptococcus pyogenes DNA. Jaron Hager PA-C LAB - MICRO GENERAL ORD ERABLES Final Result [facility] Inf. Diseases Diag. Lab [address] [facility], [address] [place] [address] * EKG 12-lead complete w/read - Clinics (06/05/2024) Jaron Hager PA-C ECG ORDERABLES Final R esult * Quantiferon TB Gold Plus (05/31/2024 4:44 PM COMMERCIAL CREDIT REVIEWER) [facility] Quantiferon-TB Gold Plus Negative Negative 06/02/2024 9:45 AM COMMERCIAL CREDIT REVIEWER SPECIALTY CORE/PROT/END O Comment: No interferon gamma response to M.tuberculosis antigens was detected. Infection with M.tuberculosis is unlikely, however a single negative result does not exclude infection. In patients at high risk for infection, a second test should be considered in accordance with the 2017 ATS/IDSA/CDC Clinical Pract ice Guidelines for Diagnosis of Tuberculosis in Adults and Children TB1 Ag minus Nil Value -0.05 IU/mL 06/02/2024 9:45 AM COMMERCIAL CREDIT REVIEWER SPECIALTY CORE/PROT/END O TB2 Ag minus Nil Value 0.05 IU/mL 06/02/2024 9:45 AM COMMERCIAL CREDIT REVIEWER SPECIALTY CORE/PROT/END O Mitogen minus Nil Result 9.73 IU/mL 06/02/2024 9:45 AM COMMERCIAL CREDIT REVIEWER SPECIALTY CORE/PROT/END O Nil Result 0.27 IU/mL 06/02/2024 9:45 AM COMMERCIAL CREDIT REVIEWER SPECIALTY CORE/PROT/END O Blood BLOOD SPECIMEN / Unknown Venipuncture / Unknown 05/31/2024 4:44 PM COMMERCIAL CREDIT REVIEWER 05/31/2024 4:44 PM COMMERCIAL CREDIT REVIEWER Herminia Hatch MD LAB - MICRO GENERAL ORDERABLES F inal Result [facility] SPECIALTY CORE/PROT/ENDO UM Specialty Core/Prot/Endo 500 [facility], Room [address] [place] [address] * Quantiferon TB Gold Plus Purple Tube (05/31/2024 4:44 PM COMMERCIAL CREDIT REVIEWER) Quantiferon Mitogen 10.00 IU/mL 06/02/2024 9:11 AM COMMERCIAL CREDIT REVIEWER UM SPECIALTY CORE/PROT/ENDO Blood BLOOD SPECIMEN / Unknown Venipuncture / Unknown 05/31/2024 4:44 PM COMMERCIAL CREDIT REVIEWER 05/31/2024 4:44 PM COMMERCIAL CREDIT REVIEWER Herminia Hatch MD LAB - MICRO GENERAL ORDERABLES F inal Result UM SPECIALTY CORE/PROT/ENDO UM Specialty Core/Prot/Endo 500 [facility], [address] * Quantiferon TB Gold Plus Yellow Tube (05/31/2024 4:44 PM COMMERCIAL CREDIT REVIEWER) Quantiferon TB2 Tube 0.32 06/02/2024 9:11 AM COMMERCIAL CREDIT REVIEWER SPECIALTY CORE/PROT/ENDO Blood BLOOD SPECIMEN / Unknown Venipuncture / Unknown 05/31/2024 4:44 PM COMMERCIAL CREDIT REVIEWER 05/31/2024 4:44 PM COMMERCIAL CREDIT REVIEWER us Herminia Hatch MD LAB - MICRO GENERAL ORDERABLES F inal Result UM SPECIALTY CORE/PROT/ENDO Specialty Core/Prot/Endo 500 [facility], [address] * Quantiferon TB Gold Plus Green Tube (05/31/2024 4:44 PM COMMERCIAL CREDIT REVIEWER) Quantiferon TB1 Tube 0.22 IU/mL 06/02/2024 9:11 AM COMMERCIAL CREDIT REVIEWER SPECIALTY CORE/PROT/ENDO Blood BLOOD SPECIMEN / Unknown Venipuncture / Unknown 05/31/2024 4:44 PM COMMERCIAL CREDIT REVIEWER 05/31/2024 4:44 PM COMMERCIAL CREDIT REVIEWER us Herminia Hatch MD LAB - MICRO GENERAL ORDERABLES F inal Result UM SPECIALTY CORE/PROT/ENDO UM Specialty Core/Prot/Endo 500 [facility], Room [address] * Quantiferon TB Gold Plus Gil Tube (05/31/2024 4:44 PM COMMERCIAL CREDIT REVIEWER) Quantiferon Nil Tube 0.27 IU/mL 06/02/2024 9:11 AM COMMERCIAL CREDIT REVIEWER UM SPECIALTY CORE/PROT/ENDO Blood BLOOD SPECIMEN / Unknown Venipuncture / Unknown 05/31/2024 4:44 PM COMMERCIAL CREDIT REVIEWER 05/31/2024 4:44 PM COMMERCIAL CREDIT REVIEWER us Herminia Hatch MD LAB - MICRO GENERAL ORDERABLES F inal Result UM SPECIALTY CORE/PROT/ENDO UM Specialty Core/Prot/Endo 500 [facility] [address] [facility], Room [address] * Cyclic Citrullinated Peptide Antibody IgG (05/31/2024 4:43 PM COMMERCIAL CREDIT REVIEWER) Cyclic Citrullinated Peptide Antibody IgG 1.7 <7.0 U/mL 06/02/2024 6:47 AM COMMERCIAL CREDIT REVIEWER UM SPECIALTY CORE/PROT/END O Comment:Negative Blood BLOOD SPECIMEN / Unknown Venipuncture / Unknown 05/31/2024 4:43 PM COMMERCIAL CREDIT REVIEWER 05/31/2024 4:43 PM COMMERCIAL CREDIT REVIEWER us Herminia Hatch MD LAB - BLOOD ORDERABLES Final Res ult UM SPECIALTY CORE/PROT/ENDO Specialty Core/Prot/Endo 500 [facility] Building, Room [address] * Rheumatoid factor (05/31/2024 4:43 PM COMMERCIAL CREDIT REVIEWER) Rheumatoid Factor <10 <14 IU/mL 06/01/2024 9:02 AM COMMERCIAL CREDIT REVIEWER [facility] Blood BLOOD SPECIMEN / Unknown Venipuncture / Unknown 05/31/2024 4:43 PM COMMERCIAL CREDIT REVIEWER 05/31/2024 4:43 PM COMMERCIAL CREDIT REVIEWER Herminia Hatch MD LAB - BLOOD ORDERABLES Final Res ult Performing Organization Address [facility] de Phone Number U LABORATORY [facility] [place] Core Lab 500 [facility], [address] [phone] * Hepatitis B Surface Antibody (05/31/2024 4:42 PM COMMERCIAL CREDIT REVIEWER) Hepatitis B Surface Antibody Nonreactive 06/01/2024 9:23 AM COMMERCIAL CREDIT REVIEWER [facility] Comment:Nonreactive results, defined as anti-HBs levels of less than 8.5 mIU/mL, indicate a lack of recovery from acute or chronic hepatitis B or inadequate immune response to HBV vaccination. Hepatitis B Surface Antibody Instrument Value <3.50 <8.5 m[IU]/mL 06/01/2024 9:23 AM COMMERCIAL CREDIT REVIEWER [facility] Blood BLOOD SPECIMEN / Unknown Venipuncture / Unknown 05/31/2024 4:42 PM COMMERCIAL CREDIT REVIEWER 05/31/2024 4:42 PM COMMERCIAL CREDIT REVIEWER us Herminia Hatch MD LAB - BLOOD ORDERABLES Final Res ult Performing Organization Address [facility] Co de Phone Number U LABORATORY [facility] Core Lab 500 [facility], [facility] [address] [phone] * Hepatitis C antibody (05/31/2024 4:42 PM COMMERCIAL CREDIT REVIEWER) Hepatitis C Antibody Nonreactive Nonreactive 06/01/2024 9:22 AM COMMERCIAL CREDIT REVIEWER [facility] Comment:A nonreactive screen ing test [...] BLOOD SPECIMEN / Unknown Venipuncture / Unknown 05/31/2024 4:42 PM COMMERCIAL CREDIT REVIEWER 05/31/2024 4:42 PM COMMERCIAL CREDIT REVIEWER us Herminia Hatch MD LAB - BLOOD ORDERABLES Final Res ult Performing Organization Address City/[facility]/ZIP Co de Phone Number U LABORATORY [facility] Core Lab 500 [facility], [address] * Hepatitis B surface antigen (05/31/2024 4:42 PM COMMERCIAL CREDIT REVIEWER) Hepatitis B Surface Antigen Nonreactive Nonreactive 06/01/2024 9:22 AM COMMERCIAL CREDIT REVIEWER [facility] Blood BLOOD SPECIMEN / Unknown Venipuncture / Unknown 05/31/2024 4:42 PM COMMERCIAL CREDIT REVIEWER 05/31/2024 4:42 PM COMMERCIAL CREDIT REVIEWER us Herminia Hatch MD LAB - BLOOD ORDERABLES Final Res ult Performing Organization Address [facility] de Phone Number U LABORATORY [facility] Core Lab 500 [facility], [address] * Hepatitis B core antibody (05/31/2024 4:42 PM COMMERCIAL CREDIT REVIEWER) Hepatitis B Core Antibody Total Nonreactive Nonreactive 06/01/2024 9:22 AM COMMERCIAL CREDIT REVIEWER [facility] Comment:Nonreactive hepatiti s B core antibody test results indicate the absence of exposure to hepatitis B virus and no evidence of recent, past/resolved, or chronic hepatitis B. Blood BLOOD SPECIMEN / Unknown Venipuncture / Unknown 05/31/2024 4:42 PM COMMERCIAL CREDIT REVIEWER 05/31/2024 4:42 PM COMMERCIAL CREDIT REVIEWER Result Davida Hatch MD LAB - BLOOD ORDERABLES Final Res ult Performing Organization Address City/[facility]/ZIP Co de Phone Number U LABORATORY [facility] Core Lab 500 [facility], [address] [place] [address], [place] * Erythrocyte sedimentation rate auto (05/31/2024 4:42 PM COMMERCIAL CREDIT REVIEWER) Pathologist [facility] Erythrocyte Sedimentation Rate 10 0 - 20 mm/hr 05/31/2024 4:56 PM COMMERCIAL CREDIT REVIEWER [facility] Blood BLOOD SPECIMEN / Unknown Venipuncture / Unknown 05/31/2024 4:42 PM COMMERCIAL CREDIT REVIEWER 05/31/2024 4:42 PM COMMERCIAL CREDIT REVIEWER us Herminia Hatch MD LAB - BLOOD ORDERABLES Final Res ult [facility] [address] [place] [address] [place] [address], [facility] * CRP, inflammation (05/31/2024 4:42 PM COMMERCIAL CREDIT REVIEWER) [facility] CRP Inflammation <3.00 <5.00 mg/L 05/31/20 4:59 [address] COMMERCIAL CREDIT REVIEWER [facility] Blood BLOOD SPECIMEN / Unknown Venipuncture / Unknown 05/31/2024 4:42 PM COMMERCIAL CREDIT REVIEWER 05/31/2024 4:42 PM COMMERCIAL CREDIT REVIEWER us Herminia Hatch MD LAB - BLOOD ORDERABLES Final Res ult Performing Organization Address [facility]/ZIP Co de Phone Number [facility] [address] [place] [address] [place] [address], [facility] * HLA-B27 Typing (05/31/2024 4:41 PM COMMERCIAL CREDIT REVIEWER) [facility] [id number] METHOD NGS 06/06/2024 2:04 PM COMMERCIAL CREDIT REVIEWER [facility] B locus B27 Neg 06/06/2024 2:04 PM COMMERCIAL CREDIT REVIEWER [facility] Blood BLOOD SPECIMEN / Unknown Venipuncture / Unknown 05/31/2024 4:41 PM COMMERCIAL CREDIT REVIEWER 05/31/2024 4:42 PM COMMERCIAL CREDIT REVIEWER us Herminia Hatch MD LAB - IMMUNOLOGY ORDERABLES Shira l Result Performing Organization Address City/[facility]/ZIP Co de Phone Number U [facility] LABORATORY Immunology/Histocomp atability CLIA: [id number] [facility] 500 [facility] [address] Building, [address] [place] [address], [facility] [phone] * (ABNORMAL) Lipid panel reflex to direct [...] Borderline High: 130 - 159 mg/dL High: 160 - 189 mg/dL Very High: >= 190 mg/dL Non HDL Cholesterol Desirable: < 130 mg/dL Above Desirable: 130 - 159 mg/dL Borderline High: 160 - 189 mg/dL High: 190 - 219 mg/dL Very High: >= 220 mg/dL us Esha Grimm PA-C LAB - BLOOD ORDERABLES Final R esult [facility] Core Lab 500 [facility], [address] * Iron and iron binding capacity (05/08/2024 [...] ORDERABLES Final R esult Performing Organization Address City/[facility]/ZIP Co de Phone Number U LABORATORY [facility] [place] Core Lab 500 [facility], [address] * Ferritin (05/08/2024 2:49 PM CDT) Pathologist [facility] Ferritin 23 6 - 175 ng/mL 05/08/2024 10:44 PM CDT [facility] Blood BLOOD SPECIMEN / Unknown Venipuncture / Unknown 05/08/2024 2:49 PM CDT 05/08/2024 2:49 PM CDT us Esha Grimm PA-C LAB - BLOOD ORDERABLES Final R esult U LABORATORY [facility] Core Lab 500 [facility], [address] * Comprehensive metabolic panel (BMP + Alb, Alk Phos, ALT, AST, Total. Bili, TP) (05/08/2024 2:49 PM CDT) Pathologist [facility] Sodium 137 135 - 145 mmol/L 05/08/2024 [...] Comment:eGFR calculated usin 2020 CKD-EPI equation. Calcium 9.2 8.8 - [...] Final R esult [facility] Lab 500 [facility], [address] [place] [address] * (ABNORMAL) CBC with platelets (05/08/2024 2:49 PM CDT) [facility] WBC Count 7.8 4.0 - 11.0 10e3/uL [...] BLOOD ORDERABLES Final R esult CR LABORATORY [facility] [place] [facility] [id number] [place] [address] (no room number, 1st floor of clinic) [place] [address], [facility] * UA Macroscopic with reflex [...] 05/08/2024 2:51 PM CDT CR LABORATORY Specific [place] Urine 1.010 1.003 - 1.035 05/08/2024 2:51 [...] 2:51 PM CDT Microscopic not indicated us Esha Grimm PA-C LAB - URINE ORDERABLES Final R esult CR LABORATORY [facility] [place] [facility] [address] [facility] (no room number, 1st floor of clinic) [place] [address], [facility] * ZIO PATCH 48 HOURS INTERPRETATION (04/28/2024 1:43 PM CDT) Anatomical Region Laterality Modality Other Narrative 04/28/2024 1:45 PM CDT Agree with findings Symptoms reported (9 episodes) were mostly related to sinus rhythm One episode of AV Wenkebach at 6:17 AM - commonly noted in young patients in early AM. Radha Lomeli POLL CLERK TAIL BOARD WORKER [facility] ORDERA BLES Final Result * Chlamydia & Gonorrhea by PCR, [facility] Collect (2024 10:11 AM CDT) Chlamydia Trachomatis Negative Negative 04/24/2024 11:19 AM CDT [facility] Comment: Negative for C. trachomatis rRNA by physician's aide mediated amplification. A negative result by physician's aide mediated amplification does not preclude the presence of infection because results are dependent on proper and adequate collection, absence of inhibitors and sufficient rRNA to be detected. Neisseria gonorrhoeae Negative Negative 04/24/2024 11:19 AM CDT [facility] Comment:Negative for N. gono rrhoeae rRNA by physician's aide mediated amplification. A negative result by physician's aide mediated amplification does not preclude the presence of C. trachomatis infection because results are dependent on proper and adequate collection, absence of inhibitors and sufficient rRNA to be detected. Swab VAGINAL STRUCTURE / Unknown Non-blood Collection / Unknown 2024 10:11 AM CDT 2024 10:34 AM CDT Esha Grimm PA-C LAB - MICRO GENERAL ORDERABLES Final Result [facility] Inf. Diseases Diag. Lab 500 [facility], [address] [place] [address] * Urinalysis Macroscopic (2024 10:11 AM CDT) [...] 2024 10:36 AM CDT LV LABORATORY Specific [place] Urine >=1.030 1.003 - 1.035 2024 10:36 [...] - URINE ORDERABLES Final R esult LABORATORY [facility] [address] [facility] (no room number, 1st floor of clinic) [place] [address], [facility] * Pap screen reflex to [...] zone component absent 09/25/2021 10:27 AM CDT [facility] Clinical Information none 09/25/2021 10:27 AM CDT [facility] Reflex Testing Yes if ASCUS 09/26/19 10:27 AM CDT [facility] Previous Abnormal? No 09/25/2021 10:27 AM CDT [facility] Performing Labs The technical component of this testing was completed at [facility] 09/25/2021 10:27 AM CDT [facility] Brushing CERVIX UTERI STRUCTURE / Unknown 09/22/2021 3:14 PM CDT 09/22/2021 3:48 PM CDT Marija BAKER - KANCHAN AP Final Re sult UM SPECIALTY LABS UM Specialty Lab 500 [facility], [address] [address], [facility] [phone] from Last 3 Months or Most Recently Relevant to Health Maintenance Insurance [facility] [id number] [address] [facility] ADMINISTRATORS * Guarantor: Kim Johnson Account Type Relation to Patient Date of Phone Billing Address Medication Therapy Self [address] [place] [address] [facility] * Guarantor: Kim Johnson Account Type Relation to Patient Date of Phone Billing Address Medication Therapy Self [address] [place] [phone] [facility] PMAP [facility] ADMINISTRATORS Advance Directives For more information, please contact: [phone] * Full Code (Latest Code Status on File) Date Activated Date Inactivated Comments 01/14/2021 7:36 AM 01/15/2021 6:05 PM All basic and advanced life-sustaining interventions are performed as appropriate Question Answer Comments Code status determined by: Discussion with shirae nt/ legal decision maker Care Teams Leather Fitter Relationship Specialty Start Date End Date Esha Grimm PA-C [address] [place] [phone] PCP - General Family Medicine 05/04/23 Diana Desir, [facility] [address] [place] [address] Pharmacist Pharmacist 04/17/21 Rain Galaviz PA-C [address] [place] [address] [address] [place] [address] Physician Director Of Catering Dermatology 04/28/21 Tavia Wyatt MD [address] [place] [address] [address] [place] [address] Dermatology 07/14/21 Erica Farrell APRN TAIL BOARD WORKER [address] [place] [id number] Nurse Practitioner Cardiovascular Disease 09/09/21 Rich Barrett MD [address] [facility] [address] [place], [place] [address] Physician Ophthalmology 01/21/22 Neil Kent MD 500 [place], [place] [phone] Dermatology 02/24/22 Diana Desir, [facility] [address] [place] [address] Assigned MTM Pharmacist 04/07/22 Livan Sharif MD [address] [place] [address] Cardiovascular Disease 05/14/22 IsCatherine hobbs MD [address] [facility] [address] [place] [address] Cardiovascular Disease 07/21/22 Valery Veronica PA-C [address] [place] [address] 685665 Physician Director Of Catering Dermatology 07/21/22 Brea Quinn POLL CLERK TAIL BOARD WORKER [address] [place] [address] [id number] Nurse Practitioner Dermatology 09/21/22 Alfonso Renteria MD [address] [facility] [address] [place], [place] [phone] Assigned Neuroscience Provider 04/02/23 Radha Lomeli, POLL CLERK TAIL BOARD WORKER [address] [place] [id number] Assigned Heart and Vascular Provider 05/28/23 Jelena David OD [address] [facility] [place] [address] Ophthalmology 06/15/23 Esha Grimm PA-C [address] [place] [address] Assigned PCP 07/16/23 Valery Veronica PA-C [address] [place] [address] [id number] Physician Director Of Catering Dermatology 09/19/23 Rey Tay MD [address] [place] [address] [place] [address] Gastroenterology 09/20/23 Rocky Zepeda DO 500 [place] [address] Physician Gastroenterology 09/20/23 Philip Dumont MD [address] [place] [address] Physician Ophthalmology 09/22/23 Meredith Carrera PA-C 9 [place] [address] Assigned Gastroenterology Provider 11/01/23 Neil Kent MD [address] [address] MD Dermatology 11/02/23 [place] [address] [place] [address] [address] Neurological Surgery 12/26/23 Audrey Waite PA-C [address] [place] [address] Physician Director Of Catering Dermatology 02/28/24 Valery Veronica PA-C 829127 [address], [place] [address] Physician Director Of Catering Dermatology 04/10/24 Herminia Hatch MD [address] [place], [place] [id number] Assigned Rheumatology Provider 07/02/24
--- OUTSIDE RECORDS SUMMARY | 2024-07-22 20:39 | XMS_ITS | Encounter Summary ---
Author Organization [place] Address [address] [place] [address] Care Team Providers Care Lithostripper Name Role Phone Diana Desir [facility] Unavailable [phone] Rain Galaviz PAUcheC Unavailable Tavia Wyatt MD Unavailable Erica Farrell VARITYPE OPERATOR MEDICAL RECORDS TECHNICIAN Unavailable Rich Barrett MD Unavailable [phone] Neil eKnt MD Unavailable Kendrick Desirelle Stanislav [facility] Unavailable Livan Sharif MD Unavailable Catherine Cm MD Unavailable + Valery Veronica-C Unavailable [phone] Brea Quinn VARITYPE OPERATOR MEDICAL RECORDS TECHNICIAN Unavailable Alfonso Renteria MD Unavailable [phone] Esha GrimmC Primary Care Provider Radha Lomeli VARITYPE OPERATOR MEDICAL RECORDS TECHNICIAN Unavailable Jelena David OD Unavailable Esha Grimm PA-C Unavailable [phone] Valery VeronicaC Unavailable Rey Tay MD Unavailable Rocky Zepeda DO Unavailable Philip Dumont MD Unavailable Meredith CarreraC Unavailable [phone] Neil Kent MD Unavailable Juan Pablo Emmanuel MD Unavailable [phone] Audrey WaiteC Unavailable [phone] Valery VeronicaC Unavailable [phone] Herminia Hatch MD Unavailable Reason for Visit * Reason Onset Date Comments Patient Request for Note/Letter 07/16/2024 Medication Question 07/16/2024 Encounter Details Date Type Department Care Team (Late st Contact Info) Description 07/16/2024 MyC Medical Advice [facility] [id number] [place] [phone] Esha Grimm PA-C [id number] [place] [phone] Patient Request for Note/Letter; Medicatio... Social History Tobacco Use Types Packs/Day Years [...] Answer Date Recorded PHQ-2 Score 1 02/07/2024 [facility] - Occupational Stress Questionnaire [...] exercise at this level? 20 min 05/07/2024 Osburn Depression Scale Answer Date Recorded Osburn Depression Score 5 01/14/2021 Last EPDS Self [...] PM CDT Legal Sex Female 4:13 AM ELECTRICAL PLUMBING SUPERVISOR Gender Identity Female 03/02/2021 5:45 PM CDT Sexual Orientation Straight 02/28/2020 12 :51 AM CDT documented as of this encounter Miscellaneous Notes * Telephone Encounter - Anni Grimm RN - 07/16/2024 2:38 PM CST Incoming call from patient. -Requests letter for school as she was out for 3 weeks due to covid and other bugs. -Requests prescription for vaginal flagyl for BV. [facility] and sending the facial cream instead. I advised patient that this would require a visit of some sort to discuss, as these were not discussed with Esha Grimm PA-C in the past. Patient states she disagrees, that Esha Grimm PA-C knows me and she'll definitely do it. She knows I'm prone to BV.. I'll do a lab only if she wants. She's written me letters for plenty of things she hasn't seen me for before if you look. I again let patient know that I can ask to see if Esha Grimm PA-C is comfortable with either of these requests, but it is not typically done without a visit. Anni Grimm RN TRICAL PLUMBING SUPERVISOR documented in this encounter Plan of Treatment Upcoming Encounters Date Type Department Care Team (Late st Contact Info) Description 10/23/2024 9:30 AM CDT Office Visit [facility] Neurology [facility] [address] [place] [address], [address] [place] [address] [place] [address] [place] [address] Johnny Penn MD [address] [place], [place] [address] 11/28/2024 7:45 AM CDT Virtual Visit [facility] Gastroenterology Clinic [address] [phone] Meredith Carrera PA-C [address] [place] [address]165 documented as of this encounter Visit Diagnoses Not on filedocumented in this encounter Additional Health Concerns Assessment Noted Time PHQ-9 Depression Total Score: 3 02/07/20 24 9:33 AM CDT documented as of this encounter Care Teams Lithostripper Relationship Specialty Start Date End Date Esha Grimm PA-C [address] [place] [phone] PCP - General Family Medicine 05/04/23 Diana Desir, [facility] [address] [place] [address] Pharmacist Pharmacist 04/17/21 Rain Galaviz PA-C [address] [place] [address] [address] [facility] [place] [id number] Physician Peoplesoft Programmer Dermatology 04/28/21 Tavia Wyatt MD [address] [place] [address] [address] [facility] [place] [id number] Dermatology 07/14/21 Erica Farrell APRN MEDICAL RECORDS TECHNICIAN [address] [place] [id number] Nurse Practitioner Cardiovascular Disease 09/09/21 Rich Barrett MD [address] [place] [address], [facility] [address] [place], [place] [address] Physician Ophthalmology 01/21/22 Neil Kent MD [address] [place] [address] Dermatology 02/24/22 [facility] [address] [place] [address] Assigned MTM Pharmacist 04/07/22 Livan Sharif MD [address] [facility] [address] [place] [id number] Cardiovascular Disease 05/14/22 Catherine Cm MD [address] [facility] [address] [place] [address] Cardiovascular Disease 07/21/22 Valery Veronica PA-C [address] [place] [address] Physician Peoplesoft Programmer Dermatology 07/21/22 Brea Quinn APRN MEDICAL RECORDS TECHNICIAN [address] [place] [address] 333925 Nurse Practitioner Dermatology 09/21/22 Alfonso Renteria MD [address] [facility] [address] [place], [place] [address]266 Assigned Neuroscience Provider 04/02/23 Radha Lomeli APRN MEDICAL RECORDS TECHNICIAN [address] [place] [address] Assigned Heart and Vascular Provider 05/28/23 Jelena David OD [address] [place] [address] [place] [id number] Ophthalmology 06/15/23 Esha Grimm PA-C [address] [place] [phone] Assigned PCP 07/16/23 Valery Veronica PA-C [address] [place] [address] Physician Peoplesoft Programmer Dermatology 09/19/23 Rey Tay MD [address] [place] [address] MD Gastroenterology 09/20/23 Rocky Zepeda DO [address] [place] [address] Physician Gastroenterology 09/20/23 Philip Dumont MD [address] [place] [address] Physician Ophthalmology 09/22/23 Meredith Carrera PA-C [address] [place], [place] [address] Assigned Gastroenterology Provider 11/01/23 Neil Kent MD [address] [address] MD Dermatology 11/02/23 [place] [address] 299847 Neurological Surgery 12/26/23 Audrey Waite PA-C [address] [place] [address] Physician Peoplesoft Programmer Dermatology 02/28/24 Valery Veronica PA-C [address] [address] [address] Physician Peoplesoft Programmer Dermatology 04/10/24 Herminia Hatch MD [address] [place] [address] Assigned Rheumatology Provider 07/02/24 documented as of this encounter
--- OUTSIDE RECORDS SUMMARY | 2024-07-22 20:39 | XMS_ITS | Encounter Summary ---
Author Organization [place] Address [address] [place] [address] Care Team Providers Care Bingo Attendant Name Role Phone Diana Desir [facility] Unavailable Rain Galaviz PAUcheC Unavailable Tavia Wyatt MD Unavailable Erica Farrell TRANSFORMER MAKER TIMEKEEPER SUPERVISOR Unavailable Rich Barrett MD Unavailable [phone] Neil Kent MD Unavailable Kendrick Desirelle Stanislav [facility] Unavailable Livan Sharif MD Unavailable Catherine Cm MD Unavailable + Valery Veronica-C Unavailable [phone] Brae Quinn TRANSFORMER MAKER TIMEKEEPER SUPERVISOR Unavailable Alfonso Renteria MD Unavailable [phone] Esha GrimmC Primary Care Provider Radha Lomeli TRANSFORMER MAKER TIMEKEEPER SUPERVISOR Unavailable Jelena David OD Unavailable [place], Esha M PA-C Unavailable [phone] Valery Veronica PA-C Unavailable Rey Tay MD Unavailable Rocky Zepeda DO Unavailable Philip Dumont MD Unavailable Meredith Carrera PA-C Unavailable [phone] Neil Kent MD Unavailable Juan Pablo Emmanuel MD Unavailable Audrey Waite PA-C Unavailable [phone] Valery Veronica PA-C Unavailable Herminia Hatch MD Unavailable Reason for Visit * Reason Onset Date Comments Appointment 07/12/2024 Encounter Details Date Type Department Care Team (Late st Contact Info) Description 07/12/2024 Telephone [facility] Neurology [address], [address] [place] [address] Johnny Penn MD [address] [place] [address] Appointment Social History Tobacco Use Types Packs/Day [...] week 05/07/2024 How often do you attend [facility] or rastafari services? 1 to [...] Answer Date Recorded PHQ-2 Score 1 02/07/2024 [facility] - Occupational Stress Questionnaire [...] exercise at this level? 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 at this location [place] Please note there is no guarantee this appointment will be available as it is first come first serve. ET RESEARCH SPECIALIST documented in this encounter Plan of Treatment Upcoming Encounters Date Type Department Care Team (Late st Contact Info) Description 10/23/2024 9:30 AM CDT Office Visit [facility] Neurology [facility] - [address], [address] [place] [address] [place] [address] [place], [place] [address] Johnny Penn MD [address] [facility] [place] [address] 11/28/2024 7:45 AM CDT Virtual Visit [facility] Gastroenterology Clinic [address] 4[address] [place] [phone] Meredith Carrera PA-C [address] [place] [address] [phone] documented as of this encounter Visit Diagnoses Not on filedocumented in this encounter Additional Health Concerns Assessment Noted Time PHQ-9 Depression Total Score: 3 02/07/20 24 9:33 AM CDT documented as of this encounter Care Teams Bingo Attendant Relationship Specialty Start Date End Date Esha Grimm, PA-C [address] [place] [phone] PCP - General Family Medicine 05/04/23 Diana Desir, [facility] [address] [place] [address] Pharmacist Pharmacist 04/17/21 Rain Galaviz PA-C [address] [place] [address] [address] [place] [place] [address] Physician Book Mender Dermatology 04/28/21 Tavia Wyatt MD [address] [place] [address] [address] [place] [address] Dermatology 07/14/21 StoesErica youssef APRN TIMEKEEPER SUPERVISOR [address] [place], [place] [address] Nurse Practitioner Cardiovascular Disease 09/09/21 Rich Barrett MD [address] [facility] [address] [place] [address] Physician Ophthalmology 01/21/22 Neil Kent MD 500 [place] [address] Dermatology 02/24/22 Diana Desir, [facility] [address] [place], [place] [address] Assigned [place] Pharmacist 04/07/22 Livan Sharif MD [address] [place], [place] [address] Cardiovascular Disease 05/14/22 Catherine Cm MD [address] [place], [place] 723085 Cardiovascular Disease 07/21/22 Valery Veronica, PA-C [address] [place], [place] 84[address]65 Physician Book Mender Dermatology 07/21/22 Brea Quinn APRN TIMEKEEPER SUPERVISOR [address] [place], [place] [address]285 Nurse Practitioner Dermatology 09/21/22 Alfonso Renteria MD [address] [place] [address] Assigned Neuroscience Provider 04/02/23 Radha Lomeli APRN TIMEKEEPER SUPERVISOR [address] [place] [address] Assigned Heart and Vascular Provider 05/28/23 Jelena David OD [address] [facility] [place] [address] MD Ophthalmology 06/15/23 Esha Grimm PA-C [address] [place] [phone] Assigned PCP 07/16/23 Valery Veronica PA-C [address] [place] [address] Physician Book Mender Dermatology 09/19/23 Rey Tay MD [address] [place] [address] Gastroenterology 09/20/23 Rocky Zepeda DO [address] [place] [address] 954275 Physician Gastroenterology 09/20/23 Philip Dumont MD [address] [place] [address] 885715 Physician Ophthalmology 09/22/23 Meredith Carrera PA-C [address] [place] [address] 692825 Assigned Gastroenterology Provider 11/01/23 Neil Kent MD [address] [place] [address] Dermatology 11/02/23 [place] [address] 272657 Neurological Surgery 12/26/23 Audrey Waite PABaldo [address] [place] [address] Physician Book Mender Dermatology 02/28/24 Valery Veronica PA-C [address]341 [address], [place] [address] Physician Book Mender Dermatology 04/10/24 Herminia Hatch MD [facility] [place], [place] [phone] Assigned Rheumatology Provider 07/02/24 documented as of this encounter
--- OUTSIDE RECORDS SUMMARY | 2024-07-22 20:39 | XMS_ITS | Clinical Summary ---
Author Organization [place] Address [address] [place] [id number] Care Team Providers Care Labeling Strategist Name Role Phone Diana Desir [facility] Unavailable [phone] Rain Galaviz PAUcheC Unavailable Tavia Wyatt MD Unavailable Erica Farrell NET LEAD ARCHITECT FUNERAL SERVICE APPRENTICE Unavailable Rich Barrett MD Unavailable [phone] Neil Kent MD Unavailable Kendrick Desirelle Stanislav [facility] Unavailable Livan Sharif MD Unavailable Catherine Cm MD Unavailable + Valery Veronica-C Unavailable Brea Quinn NET LEAD ARCHITECT FUNERAL SERVICE APPRENTICE Unavailable Alfonso Renteria MD Unavailable [phone] Esha GrimmC Primary Care Provider [phone] Radha Lomeli NET LEAD ARCHITECT FUNERAL SERVICE APPRENTICE Unavailable Jelena David OD Unavailable Alfa, Esha M PA-C Unavailable [phone] Valery Veronica PA-C Unavailable [phone] Rey Tay MD Unavailable Duane Rockyanne STEVENS Unavailable Philip Dumont MD Unavailable Meredith Carrera PA-C Unavailable Neil Kent MD Unavailable Juan Pablo Emmanuel MD Unavailable Audrey Waite PA-C Unavailable Valery Veronica PA-C Unavailable Herminia Hatch MD Unavailable Allergies Active Allergy Reactions Criticality [...] available in ED consider consultation with ED Ekg Tech. Relevant Medical History (at time Care Plan [...] to initiation of Care Plan: 11 Total [facility] Hospital Admissions in 12 months prior to initiation of Care Plan: 0 (she has technically had 2 admissions due to related issues with OBGYN) Expected home rescue plan: Metoprolol 12.5mg PRN PCP: Marija Edgar APRN CNP - Family Medicine - [facility] Specialists: Dr. Galo Burrell - Cardiology - [facility] Dee Dotson - Neurology - [facility] Epilepsy Care Care Coordination: Has worked with Community Health Worker in past - ARACELIS Parker, Clinical Care Coordination - [facility] ([place], [place] and [place]) - Follow up plan after an ED visit: Marija Edgar APRN CNP - [facility] Medicine - [facility] Initiated: 2020 Problem Noted Date Diagnosed Date Other ventricular tachycardia 05/08/2024 Paroxysmal supraventricular tachycardia 08/28/19 22 SVT (supraventricular tachycardia) 08/28/2021 Encounter for pharmacogenetic testing 04/17/2021 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 (04/17/2021): 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 KALYN (generalized anxiety disorder) 09/29/2020 Right ureteral stone 05/27/2020 Overview (05/27/2020): Added automatically from request for surgery [id number] Left ureteral stone 05/27/2020 Overview (05/27/2020): Added automatically from request for surgery [id number] Head ache 02/18/2020 Seizure 05/02/2019 Depressed 05/02/2019 Anxiety 05/02/2019 Tobacco abuse counseling 05/02/2019 Psoriasis 05/02/2019 Resolved Problems Problem Noted Date Diagnosed Date Resolved Date Neck pain 08/25/2022 06/29/2024 Lower back pain 08/25/2022 08/17/2023 Term 01/13/2021 10/11/2022 Encounter for triage in patient 12/09/2020 04/18/2023 Asthma 06/04/2020 02/07/2024 Encounters Date Type Department Care Team Description 07/17/2024 12:30 PM ENDOSCOPY SPECIALTY TECHNICIAN E-Visit [address] [phone] Esha Grimm PA-C Bacterial vaginosis (Primary Dx) 07/16/2024 MyC Medical Advice [address] [phone] Esha Grimm PA-C Patient Request for Note/Letter; Medicatio... 07/12/2024 Telephone [facility] - [address], [address] [place] [address] Johnny Penn MD Appointment 06/21/2024 4:30 PM ENDOSCOPY SPECIALTY TECHNICIAN Lab [facility] [address] [place] [address] Vaginal discharge; Screen for STD (sexually transmitted disease) 06/21/2024 Travel 06/21/2024 MyC Medical Advice [address] [phone] Antonella Eldridge RN 06/21/2024 PRE VISIT [facility] [address], [address] [place] [phone] Johnny Penn MD Previsit 06/20/2024 MyC Medical Advice [facility] [address] [place] [phone] Carley Myles RN 06/20/[address] [phone] Brea Quinn APRN FUNERAL SERVICE APPRENTICE Refill Request (Tacrolimus 0.1% ointment & Triamcinolone 0.1% ointment) 06/20/2024 Telephone [facility] [address] [place] [phone] Radha Lomeli, ARLENE FUNERAL SERVICE APPRENTICE Call Back 06/08/[address] [phone] Esha Grimm PA-C Medication Question 06/06/2024 Orders Only [facility] [address] [place] [phone] Outside, Provider 06/05/2024 5:15 PM ENDOSCOPY SPECIALTY TECHNICIAN Office Visit [facility] [address] [phone] Jaron Hager PA-C Lymphadenopathy (Primary Dx); Chest pain, unspecified type 06/05/2024 Travel 06/05/2024 MyC Medical Advice [facility] [address] [place] [address] Herminia Hatch MD 05/31/2024 4:30 PM ENDOSCOPY SPECIALTY TECHNICIAN Lab [facility] [address] [place] [phone] Psoriatic arthritis (H); Tuberculosis screening; Encounter for hepatitis C screening test for low risk patient 05/31/2024 3:30 PM ENDOSCOPY SPECIALTY TECHNICIAN Office Visit [facility] [address] [place] [address] Audrey Díaz, Herminia Koo MD Psoriatic arthritis (H) (Primary Dx); Psoriasis; Chronic bilateral low back pain without sciatica; Encounter to discuss treatment options; Tuberculosis screening; Need for hepatitis B screening test; Encounter for hepatitis C screening test for low risk patient 05/31/2024 Travel 05/28/2024 Travel 05/18/2024 Refill [facility] [id number] [place] [address] [address] [place] [address] Radha Lomeli APRN FUNERAL SERVICE APPRENTICE Refill Request (metoprolol) 05/17/2024 9:30 AM ENDOSCOPY SPECIALTY TECHNICIAN Virtual Visit [address] [phone] Diana Desir, [facility] Anxiety (Primary Dx); Moderate major depression (H); 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 with body mass index (BMI) of 31.0 to 31.9 in adult 05/14/2024 2:50 PM ENDOSCOPY SPECIALTY TECHNICIAN Therapy [facility] [address] [place] [phone] Ingris Thompson PT Neck pain (Primary Dx) 05/14/2024 Travel 05/11/2024 MyC Medical Advice [address] [phone] Esha Grimm PA-C 05/08/2024 1:30 PM CDT Office Visit [address] [phone] Lauren Claudio PA-C Holm, Kayla M, PA-C Routine general medical examination at a health care facility (Primary Dx); Other ventricular tachycardia (H); CYP2C9 intermediate metabolizer (H); Moderate major depression (H); Shortness of breath; Psoriasis; Vaginal discomfort 05/08/2024 Telephone [facility] [address] [facility], [address] [place] [address] Alfonso Renteria MD Forms (DMV(LOC)) 05/08/2024 Travel 05/07/2024 Travel 04/24/[address] [facility] [address] [facility] [address] [place] [phone] Natali Serrano RN 04/24/2024 MyC Medical Advice [facility] [address] [place] [phone] Radha Lomeli APRN FUNERAL SERVICE APPRENTICE 04/24/[address] [facility] [address] [place] [phone] Rani Gross, RN Results 2024 10:00 AM CDT Lab [facility] [address] [place] [address] Screen for STD (sexually transmitted disease) 2024 Travel 04/22/2024 8:50 AM CDT E-Visit [facility] [address] [place] [phone] Esha Grimm PA-C Screen for STD (sexually transmitted disease) (Primary Dx) from Last 3 Months Immunizations Name Administration [...] exercise at this level? 20 min 05/07/2024 [place] Depression Scale Answer Date Recorded [place] Depression Score 5 01/14/2021 Last EPDS [...] in an overnight jail, or couch-surfing.) Yes 05/07/2024 Are you worried [...] PM CDT Legal Sex Female 4:13 AM ENDOSCOPY SPECIALTY TECHNICIAN Gender Identity Female 03/02/2021 5:45 PM CDT Sexual Orientation Straight 02/28/2020 12 :51 AM CDT Last Filed Vital Signs Vital Sign Reading Time Taken Comments Blood Pressure 104/62 06/05/2024 5:21 PM ENDOSCOPY SPECIALTY TECHNICIAN Pulse 79 06/05/2024 5:21 PM ENDOSCOPY SPECIALTY TECHNICIAN Temperature 36.7 C (98.1 F) 06/05/2024 5:21 PM ENDOSCOPY SPECIALTY TECHNICIAN Respiratory Rate 18 06/05/2024 5:21 PM ENDOSCOPY SPECIALTY TECHNICIAN Oxygen Saturation 99% 06/05/2024 5:21 PM ENDOSCOPY SPECIALTY TECHNICIAN Inhaled Oxygen Concentration - - Weight 90.9 kg (200 lb 4.8 oz) 06/05/2024 5:21 P M ENDOSCOPY SPECIALTY TECHNICIAN Height 167.6 cm (5' 6) 05/31/2024 3:37 PM ENDOSCOPY SPECIALTY TECHNICIAN Body Mass Index 32.33 05/31/2024 3:37 PM ENDOSCOPY SPECIALTY TECHNICIAN Plan of Treatment Upcoming Encounters Date Type Department Care Team (Late st Contact Info) Description 10/23/2024 9:30 AM CDT [facility] - [address], [address] [place] [address] [place] [address] [place], [place] [phone] Johnny Penn MD [address] [place], [place] [phone] 11/28/2024 7:45 AM CDT Virtual Visit [facility] [address] 4th [place] [address] Meredith Carrera PA-C [address] [place] [address] Health Maintenance Due Date Last Done Comments Pneumococcal Vaccine: Pediatrics (0 to 5 Years) and At-Risk Patients (6 to 49 Years) (2 of 2 - PCV) 09/22/2022 09/22/2021, 2000, 2000, Additional history exists ANNUAL REVIEW OF HM ORDERS 03/10/202403/10, 09/22/2021, 06/24/2020 COVID-19 Vaccine ( season) 2024 INFLUENZA VACCINE (#1) 2024 , 03/27/2020, 05/02/2019, Additional history exists PHQ-9 08/09/2024 02/07/2024, 06/10, 05/16/2023, Additional history exists YEARLY PREVENTIVE VISIT 05/08/2025 05/08/20 24, 03/10/2023, 09/22/2021, Additional history exists CHLAMYDIA SCREENING 06/21/2025 06/21/2024, 2024, 02/07/2024, Additional history exists PAP 04/10/2027 09/22/2021 ADVANCE [...] Completed 04/17/2021, 2020 HEPATITIS C SCREENING Completed 05/31/2024 , 12/21/2023, 11/14/2023, Additional history exists HIV SCREENING Completed 06/21/2024, 04/10, 02/07/2024, Additional history exists MENINGITIS B IMMUNIZATION Aged Out No longer eligible based on patient's age to complete this topic RSV MONOCLONAL ANTIBODY Aged Out No l onger eligible based on patient's age to complete this topic Procedures Procedure Name Priority Date/Time Associated Diagnosis Comments NEISSERIA GONORRHOEAE PCR Routine 06/21/2024 4:22 PM ENDOSCOPY SPECIALTY TECHNICIAN Screen for STD (sexually transmitted disease) CHLAMYDIA TRACHOMATIS PCR Routine 06/21/2024 4:22 PM ENDOSCOPY SPECIALTY TECHNICIAN Screen for STD (sexually transmitted disease) WET PREPARATION Routine 06/21/2024 4:22 PM ENDOSCOPY SPECIALTY TECHNICIAN Vaginal discharge TREPONEMA ABS W REFLEX TO RPR AND TITER Routine 06/21/2024 4:22 PM ENDOSCOPY SPECIALTY TECHNICIAN Screen for STD (sexually transmitted disease) HIV ANTIGEN ANTIBODY COMBO Routine 06/21/2024 4:22 PM ENDOSCOPY SPECIALTY TECHNICIAN Screen for STD (sexually transmitted disease) HLA RESULT REPORT 06/06/2024 2:0 4 PM ENDOSCOPY SPECIALTY TECHNICIAN GROUP A STREPTOCOCCUS PCR THROAT SWAB Routine 06/05/2024 6:28 PM ENDOSCOPY SPECIALTY TECHNICIAN Lymphadenopathy STREPTOCOCCUS A RAPID SCREEN W REFELX TO PCR Routine 06/05/2024 6:28 PM ENDOSCOPY SPECIALTY TECHNICIAN Lymphadenopathy EKG 12-LEAD COMPLETE W/READ - CLINICS Routine 06/05/2024 Lymphadenopathy QUANTIFERON-TB GOLD PLUS Routine 05/31/2024 4:44 PM ENDOSCOPY SPECIALTY TECHNICIAN Psoriatic arthritis (H) Tuberculosis screening Encounter for hepatitis C screening test for low risk patient QUANTIFERON TB GOLD PLUS Routine 05/31/2024 4:44 PM ENDOSCOPY SPECIALTY TECHNICIAN Psoriatic arthritis (H) Tuberculosis screening Encounter for hepatitis C screening test for low risk patient QUANTIFERON TB GOLD PLUS PURPLE TUBE Routine 05/31/2024 4:44 PM ENDOSCOPY SPECIALTY TECHNICIAN Psoriatic arthritis (H) Tuberculosis screening Encounter for hepatitis C screening test for low risk patient QUANTIFERON TB GOLD PLUS YELLOW TUBE Routine 05/31/2024 4:44 PM ENDOSCOPY SPECIALTY TECHNICIAN Psoriatic arthritis (H) Tuberculosis screening Encounter for hepatitis C screening test for low risk patient QUANTIFERON TB GOLD PLUS GREEN TUBE Routine 05/31/2024 4:44 PM ENDOSCOPY SPECIALTY TECHNICIAN Psoriatic arthritis (H) Tuberculosis screening Encounter for hepatitis C screening test for low risk patient QUANTIFERON TB GOLD PLUS GIL TUBE Routine 05/31/2024 4:44 PM ENDOSCOPY SPECIALTY TECHNICIAN Psoriatic arthritis (H) Tuberculosis screening Encounter for hepatitis C screening test for low risk patient RHEUMATOID FACTOR Routine 05/31/2024 4:4 3 PM ENDOSCOPY SPECIALTY TECHNICIAN Psoriatic arthritis (H) Tuberculosis screening Encounter for hepatitis C screening test for low risk patient CYCLIC CITRULLINATED PEPTIDE ANTIBODY IGG Routine 05/31/2024 4:43 PM ENDOSCOPY SPECIALTY TECHNICIAN Psoriatic arthritis (H) Tuberculosis screening Encounter for hepatitis C screening test for low risk patient HEPATITIS C ANTIBODY Routine 05/31/2024 4:42 PM ENDOSCOPY SPECIALTY TECHNICIAN Psoriatic arthritis (H) Tuberculosis screening Encounter for hepatitis C screening test for low risk patient HEPATITIS B SURFACE ANTIGEN Routine 05/31/2024 4:42 PM ENDOSCOPY SPECIALTY TECHNICIAN Psoriatic arthritis (H) Tuberculosis screening Encounter for hepatitis C screening test for low risk patient HEPATITIS B SURFACE ANTIBODY Routine 05/31/2024 4:42 PM ENDOSCOPY SPECIALTY TECHNICIAN Psoriatic arthritis (H) Tuberculosis screening Encounter for hepatitis C screening test for low risk patient HEPATITIS B CORE ANTIBODY Routine 05/31/2024 4:42 PM ENDOSCOPY SPECIALTY TECHNICIAN Psoriatic arthritis (H) Tuberculosis screening Encounter for hepatitis C screening test for low risk patient ERYTHROCYTE SEDIMENTATION RATE AUTO Routine 05/31/2024 4:42 PM ENDOSCOPY SPECIALTY TECHNICIAN Psoriatic arthritis (H) Tuberculosis screening Encounter for hepatitis C screening test for low risk patient CRP INFLAMMATION Routine 05/31/2024 4:42 PM ENDOSCOPY SPECIALTY TECHNICIAN Psoriatic arthritis (H) Tuberculosis screening Encounter for hepatitis C screening test for low risk patient HLA-B27 TYPING Routine 05/31/2024 4:41 PM ENDOSCOPY SPECIALTY TECHNICIAN Psoriatic arthritis (H) Tuberculosis screening Encounter for hepatitis C screening test for low risk patient LIPID REFLEX TO DIRECT LDL PANEL Routine 05/08/2024 2:49 PM CDT Routine general medical examination at a health care facility COMPREHENSIVE METABOLIC PANEL Routine 05/08/2024 2:49 PM CDT Routine general medical examination at a [facility] facility CBC WITH PLATELETS Routine 05/08/2024 2: 49 PM CDT Routine general medical examination at a [facility] care facility FERRITIN Routine 05/08/2024 2:49 PM CDT Routine general medical examination at a [facility] care facility IRON AND IRON BINDING CAPACITY Routine 05/08/2024 2:49 PM CDT Routine general medical examination at a [facility] facility WET PREPARATION Routine 05/08/2024 2:40 [...] HIV Antigen Antibody Combo (06/21/2024 4:22 PM ENDOSCOPY SPECIALTY TECHNICIAN) Only the most recent of2 resultswithin the time period is included. HIV Antigen Antibody Combo Nonreactive Nonreactive 06/22/2024 6:16 PM ENDOSCOPY SPECIALTY TECHNICIAN [facility] Comment:Negative HIV-1 p24 a ntigen [...] Unknown Venipuncture / Unknown 06/21/2024 4:22 PM ENDOSCOPY SPECIALTY TECHNICIAN 06/21/2024 4:30 PM ENDOSCOPY SPECIALTY TECHNICIAN Esha Grimm PA-C LAB - BLOOD ORDERABLES Final R esult LABORATORY [facility] [address] [place] [address], [facility] [address] * Treponema Abs w Reflex to RPR and Titer (06/21/2024 4:22 PM ENDOSCOPY SPECIALTY TECHNICIAN) Only the most recent of2 resultswithin the time period is included. Treponema Antibody Total Nonreactive Nonreactive 06/22/2024 6:47 PM ENDOSCOPY SPECIALTY TECHNICIAN SPECIALTY CORE/PROT/EN DO Blood BLOOD SPECIMEN / Unknown Venipuncture / Unknown 06/21/2024 4:22 PM ENDOSCOPY SPECIALTY TECHNICIAN 06/21/2024 4:30 PM ENDOSCOPY SPECIALTY TECHNICIAN Esha Grimm PA-C LAB - BLOOD ORDERABLES Final R esult [facility] SPECIALTY CORE/PROT/ENDO Specialty Core/Prot/Endo [address] [facility] [address], [place] * (ABNORMAL) Wet preparation (06/21/2024 4:22 PM ENDOSCOPY SPECIALTY TECHNICIAN) Only the most recent of3 resultswithin the time period is included. Trichomonas Absent Absent REINA 06/21/2024 4:42 PM ENDOSCOPY SPECIALTY TECHNICIAN [facility] Yeast Present(A) Absent REINA 06/21/2024 4:42 PM ENDOSCOPY SPECIALTY TECHNICIAN [facility] Clue Cells Absent Absent REINA 06/21/2024 4:42 PM ENDOSCOPY SPECIALTY TECHNICIAN [facility] WBCs/high power field 3+(A) None REINA 06/21/2024 4:42 PM ENDOSCOPY SPECIALTY TECHNICIAN [facility] Swab VAGINAL STRUCTURE / Unknown Non-blood Collection / Unknown 06/21/2024 4:22 PM ENDOSCOPY SPECIALTY TECHNICIAN 06/21/2024 4:36 PM ENDOSCOPY SPECIALTY TECHNICIAN Esha Grimm PA-C LAB - MICRO GENERAL ORDERABLES Final Result [facility] [address] [facility] Lab (no room number, 1st floor of clinic) [place] [address] * Neisseria gonorrhoeae PCR (06/21/2024 4:22 PM ENDOSCOPY SPECIALTY TECHNICIAN) Neisseria gonorrhoeae Negative Negative 06/22/2024 5:48 PM ENDOSCOPY SPECIALTY TECHNICIAN [facility] Comment:Negative for N. gono rrhoeae rRNA by floor clerk mediated amplification. A negative result by floor clerk mediated amplification does not preclude the presence of C. trachomatis infection because results are dependent on proper and adequate collection, absence of inhibitors and sufficient rRNA to be detected. Swab VAGINAL STRUCTURE / Unknown Non-blood Collection / Unknown 06/21/2024 4:22 PM ENDOSCOPY SPECIALTY TECHNICIAN 06/21/2024 4:36 PM ENDOSCOPY SPECIALTY TECHNICIAN us Esha Grimm PA-C LAB - MICRO GENERAL ORDERABLES Final Result [facility] Inf. Diseases Diag. Lab [address] [facility] [place] [address] * Chlamydia trachomatis PCR (06/21/2024 4:22 PM ENDOSCOPY SPECIALTY TECHNICIAN) Chlamydia trachomatis Negative Negative 06/22/2024 5:48 PM ENDOSCOPY SPECIALTY TECHNICIAN [facility] Comment:A negative result by floor clerk mediated amplification does not preclude the presence of C. trachomatis infection because results are dependent on proper and adequate collection, absence of inhibitors and sufficient rRNA to be detected. Swab VAGINAL STRUCTURE / Unknown Non-blood Collection / Unknown 06/21/2024 4:22 PM ENDOSCOPY SPECIALTY TECHNICIAN 06/21/2024 4:36 PM ENDOSCOPY SPECIALTY TECHNICIAN Esha Grimm PA-C LAB - MICRO GENERAL ORDERABLES Final Result [facility] Inf. Diseases Diag. Lab [address] [facility] [place] [address] * HLA Result Report (06/06/2024 2:04 PM ENDOSCOPY SPECIALTY TECHNICIAN) us Provider Outside LAB - IMMUNOLOGY ORDERABLES Fin al Result * Streptococcus A Rapid Screen w/Reflex to PCR - Clinic Collect (06/05/2024 6:28 PM ENDOSCOPY SPECIALTY TECHNICIAN) Pathologist [facility] Group A Strep antigen Negative Negative 06/05/2024 6:50 PM ENDOSCOPY SPECIALTY TECHNICIAN LABORATORY Swab STRUCTURE OF ANTERIOR PORTION OF NECK / Unknown Non-blood Collection / Unknown 06/05/2024 6:28 PM ENDOSCOPY SPECIALTY TECHNICIAN 06/05/2024 6:44 PM ENDOSCOPY SPECIALTY TECHNICIAN Jaron Hager PA-C LAB - MICRO GENERAL ORD ERABLES Final Result [facility] [place] [facility] [address] [place] [address] Lab (no room number, 1st floor of clinic) [place] [address] * Group A Streptococcus PCR Throat Swab (06/05/2024 6:28 PM ENDOSCOPY SPECIALTY TECHNICIAN) Pathologist [facility] Group A strep by PCR Not Detected Not Detected 06/06/2024 4:18 PM ENDOSCOPY SPECIALTY TECHNICIAN [facility] Swab STRUCTURE OF ANTERIOR PORTION OF NECK / Unknown Non-blood Collection / Unknown 06/05/2024 6:28 PM ENDOSCOPY SPECIALTY TECHNICIAN 06/05/2024 6:50 PM ENDOSCOPY SPECIALTY TECHNICIAN Narrative [facility] - 06/06/2024 4:18 PM ENDOSCOPY SPECIALTY TECHNICIAN The Xpert Xpress Strep A test, performed on the [employer], is a rapid, qualitative in [...] reaction (PCR) to detect Streptococcus pyogenes DNA. us Jaron Hager PA-C LAB - MICRO GENERAL ORD ERABLES Final Result [facility] Inf. Diseases Diag. Lab [address] [facility] [place] [address] * EKG 12-lead complete w/read - Clinics (06/05/2024) us Jaron Hager PA-C ECG ORDERABLES Final R esult * Quantiferon TB Gold Plus (05/31/2024 4:44 PM ENDOSCOPY SPECIALTY TECHNICIAN) [facility] Quantiferon-TB Gold Plus Negative Negative 06/02/2024 9:45 AM ENDOSCOPY SPECIALTY TECHNICIAN SPECIALTY CORE/PROT/END O Comment: No interferon gamma [...] Nil Value -0.05 IU/mL 06/02/2024 9:45 AM ENDOSCOPY SPECIALTY TECHNICIAN SPECIALTY CORE/PROT/END O TB2 Ag minus Nil Value 0.05 IU/mL 06/02/2024 9:45 AM ENDOSCOPY SPECIALTY TECHNICIAN [facility] SPECIALTY CORE/PROT/END O Mitogen minus Nil Result 9.73 IU/mL 06/02/2024 9:45 AM ENDOSCOPY SPECIALTY TECHNICIAN UM SPECIALTY CORE/PROT/END O Nil Result 0.27 IU/mL 06/02/2024 9:45 AM ENDOSCOPY SPECIALTY TECHNICIAN UM SPECIALTY CORE/PROT/END O Blood BLOOD SPECIMEN / Unknown Venipuncture / Unknown 05/31/2024 4:44 PM ENDOSCOPY SPECIALTY TECHNICIAN 05/31/2024 4:44 PM ENDOSCOPY SPECIALTY TECHNICIAN us Herminia Hatch MD LAB - MICRO GENERAL ORDERABLES F inal Result UM SPECIALTY CORE/PROT/ENDO [facility] Specialty Core/Prot/Endo [address] [facility] * Quantiferon TB Gold Plus Purple Tube (05/31/2024 4:44 PM ENDOSCOPY SPECIALTY TECHNICIAN) Quantiferon Mitogen 10.00 IU/mL 06/02/2024 9:11 AM ENDOSCOPY SPECIALTY TECHNICIAN SPECIALTY CORE/PROT/ENDO Blood BLOOD SPECIMEN / Unknown Venipuncture / Unknown 05/31/2024 4:44 PM ENDOSCOPY SPECIALTY TECHNICIAN 05/31/2024 4:44 PM ENDOSCOPY SPECIALTY TECHNICIAN us Herminia Hatch MD LAB - MICRO GENERAL ORDERABLES F inal Result SPECIALTY CORE/PROT/ENDO Specialty Core/Prot/Endo [address] [facility] * Quantiferon TB Gold Plus Yellow Tube (05/31/2024 4:44 PM ENDOSCOPY SPECIALTY TECHNICIAN) Quantiferon TB2 Tube 0.32 06/02/2024 9:11 AM ENDOSCOPY SPECIALTY TECHNICIAN [facility] SPECIALTY CORE/PROT/ENDO Blood BLOOD SPECIMEN / Unknown Venipuncture / Unknown 05/31/2024 4:44 PM ENDOSCOPY SPECIALTY TECHNICIAN 05/31/2024 4:44 PM ENDOSCOPY SPECIALTY TECHNICIAN us Herminia Hatch MD LAB - MICRO GENERAL ORDERABLES F inal Result UM SPECIALTY CORE/PROT/ENDO [facility] Specialty Core/Prot/Endo [address] [facility] [address] [facility] * Quantiferon TB Gold Plus Green Tube (05/31/2024 4:44 PM ENDOSCOPY SPECIALTY TECHNICIAN) Quantiferon TB1 Tube 0.22 IU/mL 06/02/2024 9:11 AM ENDOSCOPY SPECIALTY TECHNICIAN UM SPECIALTY CORE/PROT/ENDO Blood BLOOD SPECIMEN / Unknown Venipuncture / Unknown 05/31/2024 4:44 PM ENDOSCOPY SPECIALTY TECHNICIAN 05/31/2024 4:44 PM ENDOSCOPY SPECIALTY TECHNICIAN Herminia Hatch MD LAB - MICRO GENERAL ORDERABLES F inal Result UM SPECIALTY CORE/PROT/ENDO Specialty Core/Prot/Endo [address] [facility] [address] [facility] * Quantiferon TB Gold Plus Gil Tube (05/31/2024 4:44 PM ENDOSCOPY SPECIALTY TECHNICIAN) Quantiferon Nil Tube 0.27 IU/mL 06/02/2024 9:11 AM ENDOSCOPY SPECIALTY TECHNICIAN SPECIALTY CORE/PROT/ENDO Blood BLOOD SPECIMEN / Unknown Venipuncture / Unknown 05/31/2024 4:44 PM ENDOSCOPY SPECIALTY TECHNICIAN 05/31/2024 4:44 PM ENDOSCOPY SPECIALTY TECHNICIAN us Herminia Hatch MD LAB - MICRO GENERAL ORDERABLES F inal Result UM SPECIALTY CORE/PROT/ENDO Specialty Core/Prot/Endo [address] [facility] [address] [facility], [address] * Cyclic Citrullinated Peptide Antibody IgG (05/31/2024 4:43 PM ENDOSCOPY SPECIALTY TECHNICIAN) Cyclic Citrullinated Peptide Antibody IgG 1.7 <7.0 U/mL 06/02/2024 6:47 AM ENDOSCOPY SPECIALTY TECHNICIAN UM SPECIALTY CORE/PROT/END O Comment:Negative Blood BLOOD SPECIMEN / Unknown Venipuncture / Unknown 05/31/2024 4:43 PM ENDOSCOPY SPECIALTY TECHNICIAN 05/31/2024 4:43 PM ENDOSCOPY SPECIALTY TECHNICIAN us Herminia Hatch MD LAB - BLOOD ORDERABLES Final Res ult UM SPECIALTY CORE/PROT/ENDO UM Specialty Core/Prot/Endo [address] [facility] [address] Building, [address] * Rheumatoid factor (05/31/2024 4:43 PM ENDOSCOPY SPECIALTY TECHNICIAN) Rheumatoid Factor <10 <14 IU/mL 06/01/2024 9:02 AM ENDOSCOPY SPECIALTY TECHNICIAN [facility] Blood BLOOD SPECIMEN / Unknown Venipuncture / Unknown 05/31/2024 4:43 PM ENDOSCOPY SPECIALTY TECHNICIAN 05/31/2024 4:43 PM ENDOSCOPY SPECIALTY TECHNICIAN us Herminia Hatch MD LAB - BLOOD ORDERABLES Final Res ult Performing Organization Address City/[facility]/ZIP Co de Phone Number [facility] Core Lab [address] [place] [address], [address] [phone] * Hepatitis B Surface Antibody (05/31/2024 4:42 PM ENDOSCOPY SPECIALTY TECHNICIAN) Pathologist [facility] [place] Hepatitis B Surface Antibody Nonreactive 06/01/2024 9:23 AM ENDOSCOPY SPECIALTY TECHNICIAN [facility] Comment:Nonreactive results, defined as anti-HBs levels of less than 8.5 mIU/mL, indicate a lack of recovery from acute or chronic hepatitis B or inadequate immune response to HBV vaccination. Hepatitis B Surface Antibody Instrument Value <3.50 <8.5 m[IU]/mL 06/01/2024 9:23 AM ENDOSCOPY SPECIALTY TECHNICIAN [facility] Blood BLOOD SPECIMEN / Unknown Venipuncture / Unknown 05/31/2024 4:42 PM ENDOSCOPY SPECIALTY TECHNICIAN 05/31/2024 4:42 PM ENDOSCOPY SPECIALTY TECHNICIAN us Herminia Hatch MD LAB - BLOOD ORDERABLES Final Res ult [facility] [place] Core Lab 500 [facility] Building, [address] * Hepatitis C antibody (05/31/2024 4:42 PM ENDOSCOPY SPECIALTY TECHNICIAN) Hepatitis C Antibody Nonreactive Nonreactive 06/01/2024 9:22 AM ENDOSCOPY SPECIALTY TECHNICIAN [facility] Comment:A nonreactive screen ing test [...] Unknown Venipuncture / Unknown 05/31/2024 4:42 PM ENDOSCOPY SPECIALTY TECHNICIAN 05/31/2024 4:42 PM ENDOSCOPY SPECIALTY TECHNICIAN us Herminia Hatch MD LAB - BLOOD ORDERABLES Final Res ult [facility] Core Lab 500 [facility], [address] * Hepatitis B surface antigen (05/31/2024 4:42 PM ENDOSCOPY SPECIALTY TECHNICIAN) Pathologist [facility] [place] Hepatitis B Surface Antigen Nonreactive Nonreactive 06/01/2024 9:22 AM ENDOSCOPY SPECIALTY TECHNICIAN [facility] Blood BLOOD SPECIMEN / Unknown Venipuncture / Unknown 05/31/2024 4:42 PM ENDOSCOPY SPECIALTY TECHNICIAN 05/31/2024 4:42 PM ENDOSCOPY SPECIALTY TECHNICIAN us Herminia Hatch MD LAB - BLOOD ORDERABLES Final Res ult U LABORATORY [facility] [place] Core Lab 500 [facility], [address] * Hepatitis B core antibody (05/31/2024 4:42 PM ENDOSCOPY SPECIALTY TECHNICIAN) Pathologist [facility] [place] Hepatitis B Core Antibody Total Nonreactive Nonreactive 06/01/2024 9:22 AM ENDOSCOPY SPECIALTY TECHNICIAN [facility] Comment:Nonreactive hepatiti s B core antibody test results indicate the absence of exposure to hepatitis B virus and no evidence of recent, past/resolved, or chronic hepatitis B. Blood BLOOD SPECIMEN / Unknown Venipuncture / Unknown 05/31/2024 4:42 PM ENDOSCOPY SPECIALTY TECHNICIAN 05/31/2024 4:42 PM ENDOSCOPY SPECIALTY TECHNICIAN us Herminia Hatch MD LAB - BLOOD ORDERABLES Final Res ult LABORATORY [facility] [place] Core Lab 500 [facility], Room 3[address] [place] [address] * Erythrocyte sedimentation rate auto (05/31/2024 4:42 PM ENDOSCOPY SPECIALTY TECHNICIAN) [facility] Erythrocyte Sedimentation Rate 10 0 - 20 mm/hr 05/31/2024 4:56 PM ENDOSCOPY SPECIALTY TECHNICIAN [facility] LABORATORY Blood BLOOD SPECIMEN / Unknown Venipuncture / Unknown 05/31/2024 4:42 PM ENDOSCOPY SPECIALTY TECHNICIAN 05/31/2024 4:42 PM ENDOSCOPY SPECIALTY TECHNICIAN us Herminia Hatch MD LAB - BLOOD ORDERABLES Final Res ult Performing Organization Address City/[facility]/ZIP Co de Phone Number [facility] Lab [address], [place] [address], [facility] * CRP, inflammation (05/31/2024 4:42 PM ENDOSCOPY SPECIALTY TECHNICIAN) [facility] CRP Inflammation <3.00 <5.00 mg/L 05/31/20 24 4:59 PM ENDOSCOPY SPECIALTY TECHNICIAN [facility] LABORATORY Blood BLOOD SPECIMEN / Unknown Venipuncture / Unknown 05/31/2024 4:42 PM ENDOSCOPY SPECIALTY TECHNICIAN 05/31/2024 4:42 PM ENDOSCOPY SPECIALTY TECHNICIAN us Herminia Hatch MD LAB - BLOOD ORDERABLES Final Res ult [facility] Lab [address] [place] [address], [facility] * HLA-B27 Typing (05/31/2024 4:41 PM ENDOSCOPY SPECIALTY TECHNICIAN) [id number] METHOD NGS 06/06/2024 2:04 PM ENDOSCOPY SPECIALTY TECHNICIAN [facility] B locus B27 Neg 06/06/2024 2:04 PM ENDOSCOPY SPECIALTY TECHNICIAN [facility] Blood BLOOD SPECIMEN / Unknown Venipuncture / Unknown 05/31/2024 4:41 PM ENDOSCOPY SPECIALTY TECHNICIAN 05/31/2024 4:42 PM ENDOSCOPY SPECIALTY TECHNICIAN Herminia Hatch MD LAB - IMMUNOLOGY ORDERABLES Shira l Result U [facility] LABORATORY Immunology/Histocomp atability CLIA: [id number] [facility] [address] Building, Room [address] [phone] * (ABNORMAL) Lipid panel reflex to direct [...] ORDERABLES Final R esult Performing Organization Address City/[facility] de Phone Number [facility] [place] Core Lab 500 [facility], [address] * Iron and iron binding capacity [...] ORDERABLES Final R esult Performing Organization Address City/[facility] de Phone Number [facility] [place] Core Lab 500 [facility], [address] [id number] * Ferritin (05/08/2024 2:49 PM CDT) Ferritin 23 6 - 175 ng/mL 05/08/2024 10:44 PM CDT [facility] Blood BLOOD SPECIMEN / Unknown Venipuncture / Unknown 05/08/2024 2:49 PM CDT 05/08/2024 2:49 PM CDT us Esha Grimm PA-C LAB - BLOOD ORDERABLES Final R esult [facility] [place] Core Lab 500 [facility], [address] [place] [address], [facility] * Comprehensive metabolic panel (BMP [...] BLOOD ORDERABLES Final R esult [facility] [place] Core Lab 500 [facility], Room [address] [place] [phone] * (ABNORMAL) CBC with platelets [...] BLOOD ORDERABLES Final R esult CR LABORATORY [facility] [place] [facility] [address] [facility] (no room number, 1st floor of clinic) [place] [address], [facility] * UA Macroscopic with reflex [...] 05/08/2024 2:51 PM CDT CR LABORATORY [place] Urine 1.010 1.003 - 1.035 05/08/2024 2:51 [...] URINE ORDERABLES Final R esult CR LABORATORY [facility] [place] [facility] [address] [facility] (no room number, 1st floor of clinic) [place] [address], [facility] * ZIO PATCH 48 HOURS INTERPRETATION (04/28/2024 1:43 PM CDT) Anatomical Region Laterality Modality Other Narrative 04/28/2024 1:45 PM CDT Agree with findings Symptoms reported (9 episodes) were mostly related to sinus rhythm One episode of AV Wenkebach at 6:17 AM - commonly noted in young patients in early AM. Radha Lomeli APRN FUNERAL SERVICE APPRENTICE CV CARDIAC SERVICES ORDERA BLES Final Result * Chlamydia & Gonorrhea by PCR, [facility] Collect (2024 10:11 AM CDT) Chlamydia Trachomatis Negative Negative 04/24/2024 11:19 AM CDT [facility] Comment: Negative for C. trachomatis rRNA by floor clerk mediated amplification. A negative result by floor clerk mediated amplification does not preclude the presence of infection because results are dependent on proper and adequate collection, absence of inhibitors and sufficient rRNA to be detected. Neisseria gonorrhoeae Negative Negative 04/24/2024 11:19 AM CDT [facility] Comment:Negative for N. gono rrhoeae rRNA by floor clerk mediated amplification. A negative result by floor clerk mediated amplification does not preclude the presence of C. trachomatis infection because results are dependent on proper and adequate collection, absence of inhibitors and sufficient rRNA to be detected. Swab VAGINAL STRUCTURE / Unknown Non-blood Collection / Unknown 2024 10:11 AM CDT 2024 10:34 AM CDT Esha Grimm PA-C LAB - MICRO GENERAL ORDERABLES Final Result [facility] Inf. Diseases Diag. Lab 500 [facility], [address] [place] [address], [facility] * Urinalysis Macroscopic (2024 10:11 AM CDT) Color Urine Yellow Colorless, Straw, Light Yellow, Yellow 2024 10:36 AM CDT LABORATORY Appearance Urine Clear Clear 04/23/20 10:36 AM CDT LV LABORATORY Glucose Urine Negative Negative mg/dL 2024 10:36 AM CDT LV LAB[facility] Bilirubin Urine Negative Negative 10:36 AM CDT [facility] Ketones Urine Negative Negative mg/dL 2024 10:36 AM CDT [facility] [place] Urine >=1.030 1.003 - 1.035 2024 10:36 AM CDT LABORATORY Blood Urine Negative Negative 2024 10:36 AM CDT LABORATORY pH Urine 5.5 5.0 - 7.0 2024 10:36 AM CDT LABORATORY Protein Albumin Urine Negative Negative mg/dL 2024 10:36 AM CDT LABORATORY Urobilinogen Urine 0.2 0.2, 1.0 E.U./dL 2024 10:36 AM CDT LV LAB[facility] Nitrite Urine Negative Negative 2024 10:36 AM CDT LABORATORY Leukocyte Esterase Urine Negative Negative 2024 10:36 AM CDT LABORATORY Urine MID-STREAM URINE SPECIMEN / Unknown Non-blood Collection / Unknown 2024 10:11 AM CDT 2024 10:34 AM CDT us Esha Grimm PA-C LAB - URINE ORDERABLES Final R esult LV LABORATORY [facility] [place] [facility] [address] [facility] Lab (no room number, 1st floor of clinic) [place] [address], [place] * Pap screen reflex to HPV if [...] component of this testing was completed at [facility] 09/25/2021 10:27 AM CDT SPECIALTY LABS Brushing CERVIX UTERI STRUCTURE / Unknown 09/22/2021 3:14 PM CDT 09/22/2021 3:48 PM CDT Marija Edgar APRN FUNERAL SERVICE APPRENTICE LAB - [place] AP Final Re sult SPECIALTY LABS Specialty Lab [address] [facility] [address] [facility], [address] [place] [address], [facility] [phone] from Last 3 Months or Most Recently Relevant to Health Maintenance Insurance [facility] [address] [address] [facility] * Guarantor: Kim Johnson Account Type Relation to Patient Date of Phone Billing Address Medication Therapy Self [address] [place] [phone] [facility] * Guarantor: Kim Johnson Account Type Relation to Patient Date of Phone Billing Address Medication Therapy Self [address] [place] [phone] [facility] Advance Directives For more information, please contact: [phone] * Full Code (Latest Code Status on File) Date Activated Date Inactivated Comments 01/14/2021 7:36 AM 01/15/2021 6:05 PM All basic and advanced life-sustaining interventions are performed as appropriate Question Answer Comments Code status determined by: Discussion with patie nt/ legal decision maker Care Teams Labeling Strategist Relationship Specialty Start Date End Date Esha Grimm PA-C [address] [place] [phone] PCP - General Family Medicine 05/04/23 Diana Desir, [facility] [address] [place] [address] Pharmacist Pharmacist 04/17/21 Rain Galaviz PA-C [address] [place] [address] [address] [place] [address] Physician Ios Developer Dermatology 04/28/21 Tavia Wyatt MD [address] [place] [address] [address] [place] [address] Dermatology 07/14/21 Erica Farrell APRN FUNERAL SERVICE APPRENTICE [address] [facility] [address] [place], [place] 2053[address] Nurse Practitioner Cardiovascular Disease 09/09/21 Rich Barrett MD [address] [phone] Physician Ophthalmology 01/21/22 Neil Kent MD [address] [place] [address] [phone] Dermatology 02/24/22 Diana Desir, [facility] [address] [place], [place] 612316 Assigned MTM Pharmacist 04/07/22 Livan Sharif MD [address], [facility] [address] [place], [place] 625585 Cardiovascular Disease 05/14/22 Catherine Cm MD [address] [facility] [address] [place], [place] 934[address] Cardiovascular Disease 07/21/22 Valery Veronica, PA-C [address] [place] [address] 011915 Physician Ios Developer Dermatology 07/21/22 Brea Quinn APRN FUNERAL SERVICE APPRENTICE [address] [place], [place] 820575 Nurse Practitioner Dermatology 09/21/22 Alfonso Renteria MD [address] [facility] 200 [place], [place] 235156 Assigned Neuroscience Provider 04/02/23 Radha Lomeli APRN FUNERAL SERVICE APPRENTICE [address] [place], [place] 988525 Assigned Heart and Vascular Provider 05/28/23 Jelena David OD [address] [facility] [place] [address] MD Ophthalmology 06/15/23 Esha Grimm PA-C [address] [place] [phone] Assigned PCP 07/16/23 Valery Veronica PA-C [address] [place] [address] 210055 Physician Ios Developer Dermatology 09/19/23 Rey Tay MD [address] [place] [address] 183415 MD Gastroenterology 09/20/23 Rocky Zepeda DO [address] [place] [address] 997035 Physician Gastroenterology 09/20/23 Philip Dumont MD [address] [place] [address] Physician Ophthalmology 09/22/23 Meredith Carrera PA-C [address] [place] [address] 800425 Assigned Gastroenterology Provider 11/01/23 Neil Kent MD [address] [place] [address] Dermatology 11/02/23 [place] [address] [place] [address] Neurological Surgery 12/26/23 Audrey Waite PA-C 500 [place] [address] Physician Ios Developer Dermatology 02/28/24 Valery Veronica PA-C [address] [place] [address] Physician Ios Developer Dermatology 04/10/24 Herminia Hatch MD [address] [place] [address] Assigned Rheumatology Provider 07/02/24
--- OUTSIDE RECORDS SUMMARY | 2024-07-22 20:40 | XMS_ITS | Encounter Summary ---
Author Organization [place] Address [address] [place] [address] Care Team Providers Care Linter Drier Operator Name Role Phone Diana Desir [facility] Unavailable Rain Galaviz PA-C Unavailable Tavia Wyatt MD Unavailable Erica Farrell APRN DIVISION OFF[employer] Unavailable Rich Barrett MD Unavailable [phone] Neil Kent MD Unavailable Diana Desir [facility] Unavailable Livan Sharif MD Unavailable Catherine Cm MD Unavailable + Valery Veronica PA-C Unavailable [phone] Brea Quinn [employer] MECHANIC DIVISION OFF[employer] Unavailable [phone] Brea Quinn [employer] MECHANIC [employer] Unavailable Jose Francisco Johnson MD Unavailable Alfonso Renteria MD Unavailable [phone] Esha Grimm PA-C Primary Care Provider [phone] Lomeli, Radha E [employer] MECHANIC DIVISION OFF[employer] Unavailable [phone] Jelena David OD Unavailable Esah Grimm PA-C Unavailable [phone] Valery Veronica PA-C Unavailable Rey Tay MD Unavailable Rocky Zepeda DO Unavailable Philip Dumont MD Unavailable Meredith Carrera PA-C Unavailable Neil [place] MD Unavailable Juan Pablo Emmanuel MD Unavailable Audrey Waite PA-C Unavailable Valery Veronica PA-C Unavailable [phone] Herminia Hatch MD Unavailable Encounter Details Date Type Department Care Team (Late st Contact Info) Description 03/06/2024 MyC Medical Advice [facility] Spine and Neurosurgery [address] [place] [phone] Ebony Cid APRN DIVISION OFFIC[employer] [address] [place] [address] Social History Tobacco Use Types [...] you attend [facility] or latter-day services? 1 to 4 times [...] 1 02/07/2024 [facility]ational Stress Questionnaire Answer [...] at this level? 30 min 03/10/2023 [place] Depression Scale Answer Date Recorded [place] Depression Score 5 01/14/2021 Last EPDS Self [...] PM CDT Legal Sex Female 4:13 AM HOUSE CALLS NURSE PRACTITIONER Gender Identity Female 03/02/2021 5:45 PM CDT Sexual Orientation Straight 02/28/2020 12 :51 AM CDT documented as of this encounter Plan of Treatment Upcoming Encounters Date Type Department Care Team (Late st Contact Info) Description 10/23/2024 9:30 AM CDT Office Visit [facility] Neurology [address], [address] [place] [address] [place] [address] [address] [address] Johnny Penn MD [address] [place] [id number] 11/28/2024 7:45 AM CDT Virtual Visit [facility] Gastroenterology [address] 4th [place] [phone] Meredith Carrera PA-C [address] [place] [address] documented as of this encounter Visit Diagnoses Not on filedocumented in this encounter Additional Health Concerns Infection Onset Date Last Indicated Resolved Time Rule Out COVID-19 04/09/2024 04/09/2024 04/10/2024 6:48 PM CDT Assessment Noted Time PHQ-9 Depression Total Score: 3 02/07/20 24 9:33 AM CDT documented as of this encounter Care Teams Linter Drier Operator Relationship Specialty Start Date End Date Esha Grimm PA-C [address] [place] [phone] PCP - General Family Medicine 05/04/23 [facility] [place] [address] Pharmacist Pharmacist 04/17/21 Rain Galaviz PA-C [address] [place] [address] [address] [place] [address] Physician Telephone Sales Representative Dermatology 04/28/21 Tavia Wyatt MD [address] [place] [address] [address] [place] [address] Dermatology 07/14/21 Erica Farrell APRN [employer] [address] [place] 8492800 [place] [address] Nurse Practitioner Cardiovascular Disease 09/09/21 Rich Barrett MD [address] [place] [address] [address] [place], [place] 6[address]395 Physician Ophthalmology 01/21/22 Neil Kent MD 500 [place] [address] Dermatology 02/24/22 Diana Desir, [facility] [address] [place] [address] Assigned MTM Pharmacist 04/07/22 Livan Sharif MD [address] [address] Cardiovascular Disease 05/14/22 Catherine Cm MD [address] 210495 Cardiovascular Disease 07/21/22 Valery Veronica, PAUcheC 9 [place], [place] 160185 Physician Telephone Sales Representative Dermatology 07/21/22 Brea Quinn APRN [employer] 500 [place] [address] Nurse Practitioner Dermatology 09/21/22 Brea Quinn APRN [employer] [address] [place], [place] [address] 416692 Assigned Surgical Provider 10/09/22 05/01/24 [place] [address] [place] [address] Assigned Musculoskeletal Provider 10/09/22 05/01/24 Alfonso Renteria MD [address] [facility] [address] [place] [address] Assigned Neuroscience Provider 04/02/23 Radha Lomeli APRN [employer] 6[address] [facility] [address] [place] [address] Assigned Heart and Vascular Provider 05/28/23 Jelena David OD [address] [facility] [place] [address] MD Ophthalmology 06/15/23 Esha Grimm PA-C [address] [place] [address] Assigned PCP 07/16/23 Valery Veronica PA-C [address] [place] [address] [phone] Physician Telephone Sales Representative Dermatology 09/19/23 Rey Tay MD [address] [place] [address] MD Gastroenterology 09/20/23 Rocky Zepeda DO [address] [place] [address] [phone] Physician Gastroenterology 09/20/23 Philip Dumont MD [address] [place] [address] [phone] Physician Ophthalmology 09/22/23 Meredith Carrera PA-C [address]09 [place] [address] Assigned Gastroenterology Provider 11/01/23 Neil Kent MD [address] [address] MD Dermatology 11/02/23 [place] [address] 261317 Neurological Surgery 12/26/23 Audrey Waite PA-C 500 [place] [address] Physician Telephone Sales Representative Dermatology 02/28/24 Valery Veronica PA-C 229061 [address], [place] [address] Physician Telephone Sales Representative Dermatology 04/10/24 Herminia Hatch MD [address] [place] [address] Assigned Rheumatology Provider 07/02/24 documented as of this encounter
--- OUTSIDE RECORDS SUMMARY | 2024-07-22 20:40 | XMS_ITS | Encounter Summary ---
Author Organization [place] Address [address] [place] [address] Care Team Providers Care Polymerization Oven Operator Name Role Phone Diana Desir [facility] Unavailable Rain Galaviz PAUcheC Unavailable Tavia Wyatt MD Unavailable Erica Farrell SITE TECHNICIAN VASCULAR TECH Unavailable Rich Barrett MD Unavailable [phone] Neil Kent MD Unavailable Kendrick eDsirelle Stanislav [facility] Unavailable Livan Sharif MD Unavailable Catherine Cm MD Unavailable + Valery Veronica-C Unavailable Brea Quinn SITE TECHNICIAN VASCULAR TECH Unavailable Alfonso Renteria MD Unavailable [phone] Esha GrimmC Primary Care Provider Radha Lomeli SITE TECHNICIAN VASCULAR TECH Unavailable Jelena David OD Unavailable [place], Esha M PA-C Unavailable [phone] Valery Veronica PA-C Unavailable [phone] Rey Tay MD Unavailable Rocky Zepeda DO Unavailable Philip Dumont MD Unavailable [phone] Meredith Carrera PA-C Unavailable [phone] Neil Kent MD Unavailable Juan Pablo Emmanuel MD Unavailable [phone] Audrey Waite PA-C Unavailable [phone] Valery Veronica PA-C Unavailable [phone] Reason for Visit * Rehab Therapy Physical Therapy (Priority: 1-2 Weeks) - Pending Review Specialty Diagnoses / Procedures Referred By Qian mayers Referred To Contact Diagnoses Chiari malformation type I (H) Neck pain Ebony Cid, [facility] [address] [place] [address] Phone: tel: fax: Referral ID Status Reason Start Date Expiration Date V isits Requested Visits Authorized [id number] Pending Review 01/05/2024 01/04/2025 1 1 Encounter Details Date Type Department Care Team (Latest Contact Info) Description 05/14/2024 2:50 PM STOCK PITCHER Therapy Visit [facility] [address] [place] [address] Ingris Thompson, PT [facility] [address] [facility] [address] [place] [address] Neck pain (Primary Dx) Social [...] 1 02/07/2024 [facility] - Occupational Stress [...] exercise at this level? 20 min 05/07/2024 [place] Depression Scale Answer Date Recorded [place] [...] in an overnight custodial, or couch-surfing.) Yes 05/07/2024 Are you worried [...] PM CDT Legal Sex Female 4:13 AM STOCK PITCHER Gender Identity Female 03/02/2021 5:45 PM CDT Sexual Orientation Straight 02/28/2020 12 :51 AM CDT documented as of this encounter Progress Notes * Ingris Thompson, PT - 06/29/2024 3:09 PM CST DISCHARGE Reason for Discharge: Patient has failed to schedule further appointments. Equipment Issued: none Discharge Plan: Patient to continue home program. 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 Target Date 05/17/24 Subjective Report Subjective Report has been working hard on breathing exercises and pect stretching, still has pain with sneezing, thinks it feels like a pinched nerve Objective Measures Objective Measures Objective Measure 1 Objective Measure 1 Details thoracic kyphosis, mid back tightness, forward head, forward shoulders and chest tightness PT Modalities PT Modalities Ultrasound Treatment Interventions (PT) Interventions Manual Therapy;Therapeutic Procedure/Exercise Therapeutic Procedure/Exercise Therapeutic Procedures: strength, endurance, ROM, flexibility minutes (00644) 25 PTRx Ther Proc 1 Pec Stretch Doorway [...] 10 reps B PTRx Ther Proc 4 Abdominal Brace Transverse Abdominis PTRx Ther Proc 4 - Details cues to reduce lower abdominal bulging. Pt able to engage low abdominalswith cues PTRx Ther Proc 5 Shoulder Scapular Retraction with Tubing PTRx Ther Proc 5 - Details red TB 15 reps Manual Therapy Manual Therapy: Mobilization, MFR, MLD, friction massage minutes (27234) 15 Manual Therapy 1 joint mobilizations Manual Therapy 1 - Details prone PA glides of thoacic spine, hypomobile and some discomfort Education Education Comments PTRX phone Plan Plan for next session progress scapular ex, wall angels? wall walks? core ex? review breathing, foam roller extensions? revisist joint mobs Total Session Time Timed Code Treatment Minutes 40 Total Treatment Time (sum of timed and untimed services) 40 K PITCHER * Ingris Thompson, PT - 06/22/2024 12:19 PM CST [facility] OUTPATIENT PHYSICAL THERAPY PLAN OF TREATMENT FOR OUTPATIENT REHABILITATION Patient's Last Name, First Name, Kim White Date of : 2000 Provider's Name Adam [facility] Onset Date: 01/05/24 ( order) Start of Care Date: 01/26/24 Medical Diagnosis: Chiari malformation type I (H) Neck pain PT Treatment Diagnosis: mid back and neck pain Plan of Treatment Frequency/Duration: 1x/week/ 8 weeks Certification date from 03/22/24 to 05/17/24 See note for plan of treatment details and functional goals Ingris Thompson, PT I CERTIFY THE NEED FOR THESE SERVICES FURNISHED UNDER THIS PLAN OF TREATMENT AND WHILE UNDER MY CARE (Physician attestation of this document indicates review and certification of the therapy plan). Referring Provider: Ebony Cid Initial Assessment See Epic Evaluation- Start of Care Date: 01/26/24 PLAN Continue therapy per current plan of care. Beginning/End Dates of Progress Note Reporting Period: to 05/14/2024 Referring Provider: Ebony Cid 05/14/24 0500 Appointment Info Signing clinician's name / credentials Ingris Thompson PT Total/Authorized Visits PT E&T Visits Used 3 Medical Diagnosis Chiari malformation type I (H) Neck pain PT Tx Diagnosis mid back and neck pain Progress Note/Certification Start of Care Date 01/26/24 Onset of illness/injury or Date of Surgery 01/05/24 ( order) Therapy Frequency 1x/week Predicted Duration 8 weeks Certification date from 03/22/24 Certification date to 05/17/24 PT Goal 1 Goal Identifier Lifting Goal Description 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 Target Date 05/17/24 Subjective Report Subjective Report has been working hard on breathing exercises and pect stretching, still has pain with sneezing, thinks it feels like a pinched nerve Objective Measures Objective Measures Objective Measure 1 Objective Measure 1 Details thoracic kyphosis, mid back tightness, forward head, forward shoulders and chest tightness PT Modalities PT Modalities Ultrasound Treatment Interventions (PT) Interventions Manual Therapy;Therapeutic Procedure/Exercise Therapeutic Procedure/Exercise Therapeutic Procedures: strength, endurance, ROM, flexibility minutes (87505) 25 PTRx Ther Proc 1 Pec Stretch Doorway [...] 10 reps B PTRx Ther Proc 4 Abdominal Brace Transverse Abdominis PTRx Ther Proc 4 - Details cues to reduce lower abdominal bulging. Pt able to engage low abdominalswith cues PTRx Ther Proc 5 Shoulder Scapular Retraction with Tubing PTRx Ther Proc 5 - Details red TB 15 reps Manual Therapy Manual Therapy: Mobilization, MFR, MLD, friction massage minutes (94652) 15 Manual Therapy 1 joint mobilizations Manual Therapy 1 - Details prone PA glides of thoacic spine, hypomobile and some discomfort Education Education Comments PTRX phone Plan Plan for next session progress scapular ex, wall angels? wall walks? core ex? review breathing, foam roller extensions? revisist joint mobs Total Session Time Timed Code Treatment Minutes 40 Total Treatment Time (sum of timed and untimed services) 40 Cosigned by Paramjit Meyer DO at 06/22/2024 2:09 PM STOCK PITCHER K PITCHER K PITCHER Associated attestation - Paramjit Meyer DO - 06/22/2024 2:09 PM STOCK PITCHER I agree with the plan. documented in this encounter Plan of Treatment Upcoming Encounters Date Type Department Care Team (Late st Contact Info) Description 10/23/2024 9:30 AM CDT Office Visit [facility] Neurology Clinics - [address], [address] [place] [address] [place] [address] [address] [address] Johnny Penn MD [address] [place] [address] 11/28/2024 7:45 AM CDT Virtual Visit [facility] Gastroenterology Clinic [address] 4th [place] [phone] Meredith Carrera PA-C [address] [place] [address] documented as of this encounter Visit Diagnoses Diagnosis Neck pain- Primary Cervicalgia documented in this encounter Additional Health Concerns Assessment Noted Time PHQ-9 Depression Total Score: 3 02/07/20 24 9:33 AM CDT documented as of this encounter Care Teams Polymerization Oven Operator Relationship Specialty Start Date End Date Esha Grimm PA-C [address] [place] [phone] PCP - General Family Medicine 05/04/23 Diana Desir, [facility] [address] [place] [place], [place] [address] Pharmacist Pharmacist 04/17/21 Rain Galaviz PA-C [address] [place] [address] [address] [place] [address] Physician Fisheries Specialist Dermatology 04/28/21 Tavia Wyatt MD [address] [place] [address] [address] [place] [address] Dermatology 07/14/21 Erica Farrell APRN VASCULAR TECH [address] [place] [address] Nurse Practitioner Cardiovascular Disease 09/09/21 Rich Barrett MD [address] [facility] [address] [place] [address] Physician Ophthalmology 01/21/22 Neil Kent MD [address] [place], [place] 0869[address] MD Dermatology 02/24/22 [facility] [address] [place] [address] Assigned [place] Pharmacist 04/07/22 Livan Sharif MD [address], [facility] [address] [place], [place] 125[address] Cardiovascular Disease 05/14/22 Catherine Cm MD [address] [facility] [address] [place], [place] [address] Cardiovascular Disease 07/21/22 Valery Veronica, PA-C [address] [place], [place] 4758[address] Physician Fisheries Specialist Dermatology 07/21/22 Brea Quinn APRN VASCULAR TECH [address] [place], [place] 1511[address] Nurse Practitioner Dermatology 09/21/22 Alfonso Renteria MD [address] [facility] [address] [place], [place] 798[address] Assigned Neuroscience Provider 04/02/23 Radha Lomeli SITE TECHNICIAN VASCULAR TECH [address] [place], [place] 7[address] Assigned Heart and Vascular Provider 05/28/23 Jelena David OD [address] [place] [address] MD Ophthalmology 06/15/23 Esha Grimm PA-C [address] [place] [phone] Assigned PCP 07/16/23 Valery Veronica PA-C [address] [place] [address] 396235 Physician Fisheries Specialist Dermatology 09/19/23 Rey Tay MD [address] [place] [address] 473915 Gastroenterology 09/20/23 Rocky Zepeda DO [address] [place] [address] 870215 Physician Gastroenterology 09/20/23 Philip Dumont MD [address] [place] [address] 393515 Physician Ophthalmology 09/22/23 Meredith Carrera PA-C [address] [place] [address] 012435 Assigned Gastroenterology Provider 11/01/23 Neil Kent MD [address] [place] [address] 235[address] Dermatology 11/02/23 [place] [address] [place] [address] [address] Neurological Surgery 12/26/23 Audrey Waite PA-C [address] [place] [address] Physician Fisheries Specialist Dermatology 02/28/24 Valery Veronica PA-C [address] [place] [address] Physician Fisheries Specialist Dermatology 04/10/24 documented as of this encounter
--- OUTSIDE RECORDS SUMMARY | 2024-07-22 20:40 | XMS_ITS | Encounter Summary ---
Author Organization [place] Address [address] [place] [address] Care Team Providers Care Car Parker Name Role Phone Diana Desir [facility] Unavailable Rain Galaviz PA-C Unavailable Tavia Wyatt MD Unavailable Erica Farrell APRN FACT CHECKER Unavailable Rich Barrett MD Unavailable [phone] Neil Kent MD Unavailable Diana Desir [facility] Unavailable Livan Sharif MD Unavailable Catherine Cm MD Unavailable + Valery Veronica PA-C Unavailable Brea Quinn PLUG STITCHER FACT CHECKER Unavailable Brea Quinn PLUG STITCHER FACT CHECKER Unavailable Jose Francisco Johnson MD Unavailable Alfonso Renteria MD Unavailable [phone] Esha Grimm PA-C Primary Care Provider [phone] Radha Lomeli APRN FACT CHECKER Unavailable Jelena David OD Unavailable Esha Grimm PA-C Unavailable [phone] Valery Veronica PA-C Unavailable [phone] Rey Tay MD Unavailable Rocky Zepeda DO Unavailable Philip Dumont MD Unavailable Meredith Carrera PA-C Unavailable Neil Kent MD Unavailable Juan Pablo Emmanuel MD Unavailable [phone] Audrey Waite PA-C Unavailable Valery Veronica PA-C Unavailable Herminia Hatch MD Unavailable Reason for Referral * CV Testing (Routine) - Closed Specialty Diagnoses / Procedures Referred By Contparviz t Referred To Contact Cardiology Diagnoses SVT (supraventricular tachycardia) Procedures Cardiac Event Monitor Adult Pediatric Radha Lomeli APRN FACT CHECKER [address] [place] [address] Phone: tel: fax: [facility] [address] [facility] [address] [place] [address] Phone: tel: fax: Referral ID Status Reason Start Date Expiration Date Visits Re quested Visits Authorized [id number] Closed 03/07/2024 03/07/2025 1 1 Encounter Details Date Type Department Care Team (Late st Contact Info) Description 03/07/2024 Telephone [facility] Heart [facility] [address] [facility] [address] [place] [address] Carley Myles, RN Social History [...] week 03/10/2023 How often do you attend [facility]? 1 to 4 [...] exercise at this level? 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 Pt states she will mail back the Zio patch and get event monitor placed. Pt requested a outpatient scheduler to call her instead of her reaching out. Will route to scheduling team. Orders in EPIC. Carley ZABALA [facility] * Telephone Encounter - [...] Radha Lomeli CNP for review. Carley ZABALA [facility] documented in this encounter Plan of Treatment Upcoming Encounters Date Type Department Care Team (Late st Contact Info) Description 10/23/2024 9:30 AM CDT Office Visit [facility] Neurology Clinics [address] [place] [address] [place] [address] [place], [place] [phone] Johnny Penn MD [address] [place], [place] [phone] 11/28/2024 7:45 AM CDT Virtual Visit [facility] Gastroenterology Clinic [address] 4th [place] [phone] Meredith Carrera PA-C [address] [place] [address] documented as of this encounter Results * CARDIAC EVENT MONITOR APPLICATION AND PROVIDER INTERPRETATION (03/08/2024 11:18 AM CDT) Anatomical Region Laterality Modality Other Radha E Lomeli PLUG STITCHER FACT CHECKER CV CARDIAC SERVICES ORDERA BLES Final Result documented in this encounter Visit Diagnoses Diagnosis SVT (supraventricular tachycardia)- Primary Other specified cardiac dysrhythmias Palpitations Dizziness Dizziness and giddiness Paroxysmal supraventricular tachycardia Atypical chest pain Other chest pain documented in this encounter Additional Health Concerns Infection Onset Date Last Indicated Resolved Time Rule Out COVID-19 04/09/2024 04/09/2024 04/10/2024 6:48 PM CDT Assessment Noted Time PHQ-9 Depression Total Score: 3 02/07/20 24 9:33 AM CDT documented as of this encounter Care Teams Car Parker Relationship Specialty Start Date End Date Esha Grimm PA-C [address] [place] [phone] PCP - General Family Medicine 05/04/23 Diana Desir, [facility] [address] [place] [address] Pharmacist Pharmacist 04/17/21 Rain Galaviz PA-C [address] [place] [address] [address] [place], [place] [phone] Physician Consultant Dermatology 04/28/21 Tavia Wyatt MD [address] [place] [address] [address] [place], [place] [phone] Dermatology 07/14/21 Erica Farrell APRN FACT CHECKER [address] [place], [place] [address] Nurse Practitioner Cardiovascular Disease 09/09/21 Rich Barrett MD [address] [facility] 9A [place] [address] Physician Ophthalmology 01/21/22 Neil Kent MD 500 [place] [address] Dermatology 02/24/22 Diana Desir, [facility] [address] [place], [place] 44[address] Assigned MTM Pharmacist 04/07/22 Livan Sharif MD [address], [facility]00 [place], [place] [address] Cardiovascular Disease 05/14/22 Catherine Cm MD [address] [address] Cardiovascular Disease 07/21/22 Valery Veronica, PA-C [address] [place], [place] 12[address] Physician Consultant Dermatology 07/21/22 Brea Quinn APRN FACT CHECKER [address] [place], [place] [phone] Nurse Practitioner Dermatology 09/21/22 Brea Quinn APRN FACT CHECKER [address] [facility] [place] [address] Assigned Surgical Provider 10/09/22 05/01/24 [place] [address] [facility] [address] [place] [address] Assigned Musculoskeletal Provider 10/09/22 05/01/24 Alfonso Renteria MD [address] [facility] 200 [place], [place] [address] Assigned Neuroscience Provider 04/02/23 Radha Lomeli APRN FACT CHECKER [address] [facility] [address] [place] [address] Assigned Heart and Vascular Provider 05/28/23 Jelena David OD [address] [facility] [address] [place] [id number] Ophthalmology 06/15/23 Esha Grimm PA-C [address] [place] [phone] Assigned PCP 07/16/23 Valery Veronica PA-C [address] [place] [address]115 Physician Consultant Dermatology 09/19/23 Rey Tay MD [address] [place], [place] [address]165 Gastroenterology 09/20/23 Rocky Zepeda DO 500 [place] [address] Physician Gastroenterology 09/20/23 Philip Dumont MD 516 [place] [address] Physician Ophthalmology 09/22/23 Meredith Carrera PA-C [address] [place] [address] Assigned Gastroenterology Provider 11/01/23 Neil Kent MD [address] [address] MD Dermatology 11/02/23 [place] [address] [place] [address] [address] Neurological Surgery 12/26/23 Audrey Waite PA-C [address] [place] [address] Physician Consultant Dermatology 02/28/24 Valery Veronica PA-C [address] [address], [place] [address] Physician Consultant Dermatology 04/10/24 Herminia Hatch MD [facility]5 [place], [place] [phone] Assigned Rheumatology Provider 07/02/24 documented as of this encounter
--- OUTSIDE RECORDS SUMMARY | 2024-07-22 20:40 | XMS_ITS | Encounter Summary ---
Author Organization [place] Address [address] [place] [address] Care Team Providers Care Molder Name Role Phone Diana Desir [facility] Unavailable Rain Galaviz PAUcheC Unavailable Tavia Wyatt MD Unavailable Erica Farrell MANAGER OF FINANCIAL REPORTING EXECUTIVE BUSINESS COACH Unavailable Rich Barrett MD Unavailable [phone] Neil Kent MD Unavailable Kendrick Desirelle Stanislav [facility] Unavailable Livan Sharif MD Unavailable Catherine Cm MD Unavailable + Valery Veronica-C Unavailable Brea Quinn MANAGER OF FINANCIAL REPORTING EXECUTIVE BUSINESS COACH Unavailable [phone] Alfonso Renteria MD Unavailable [phone] Esha GrimmC Primary Care Provider [phone] Radha Lomeli MANAGER OF FINANCIAL REPORTING EXECUTIVE BUSINESS COACH Unavailable Jelena David OD Unavailable Alfa, Esha M PA-C Unavailable [phone] Valery Veronica PA-C Unavailable [phone] Rey Tay MD Unavailable Rocky Zepeda DO Unavailable Philip Dumont MD Unavailable [phone] Meredith Carrera PA-C Unavailable [phone] Neil Kent MD Unavailable Juan Pablo Emmanuel MD Unavailable [phone] Audrey Waite PA-C Unavailable [phone] JeremíasValery damon PA-C Unavailable [phone] Reason for Visit * Reason Onset Date Comments Refill Request 06/20/2024 Tacrolimus 0.1% ointment & Triamcinolone 0.1% ointment Encounter Details Date Type Department Care Team (Late st Contact Info) Description 06/20/2024 Refill M [address] [address] Brea Quinn APRN [address] [address] Refill Request (Tacrolimus 0.1% ointment & Triamcinolone 0.1% ointment) Social History Tobacco Use Types Packs/Day Years [...] Score 1 02/07/2024 [facility] - Occupational Stress [...] exercise at this level? 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 Antonella Kidd CLOTH HANDLER [facility] Dermatology [phone] LE TURNER * Telephone Encounter - Antonella Eldridge RN - 06/20/2024 1:28 PM HANDLE TURNER Requested Prescriptions Pending Prescriptions Disp Refills tacrolimus (PROTOPIC) 0.1 % external ointment 60 g 11 Sig: Apply thin layer to psoriasis on thinner skin of face/genitals up to twice daily as needed. Topical Steroids and Nonsteroidals Protocol Failed - 06/20/2024 1:48 PM Failed - Recent (12 mo) or future (30 days) visit within the authorizing provider's specialty The patient must have completed an in-person or virtual visit within the past 12 months or has a future visit scheduled within the next 90 days with the authorizing provider???s specialty. Urgent care and e-visits do not qualify as an office visit for this protocol. Passed - Patient is age 6 or older Passed - Authorizing prescriber's most recent note related to this medication read. If refill request is for ophthalmic use, please forward request to provider for approval. Passed - High potency steroid not ordered Passed - Medication is active on med list triamcinolone (KENALOG) 0.1 % external ointment 80 g 2 Sig: Apply topically 2 times daily. To psoriasis on body or arms/legs until healed then stop There is no refill protocol information for this order Tacrolimus Last Written Prescription Date: 10/01/22 Last Fill Quantity: 60g, # refills: 11 Last office visit: 10/01/2022 ; last virtual visit: Visit date not found with prescribing provider: Brea Quinn APRN CNP Future Office Visit: 06/25/2024 8:30 AM (Arrive by 8:25 AM) Valery Veronica PA-C [facility] Triamcinolone Last Written Prescription Date: 10/01/22 Last Fill Quantity: 80g, # refills: 2 Last office visit: 10/01/2022 ; last virtual visit: Visit date not found with prescribing provider: Brea Quinn APRN CNP Future Office Visit: 06/25/24 LE TURNER LE TURNER documented in this encounter Plan of Treatment Upcoming Encounters Date Type Department Care Team (Late st Contact Info) Description 10/23/2024 9:30 AM CDT Office Visit [facility] Neurology Clin[facility] - [place] [address] [facility], [address] [place] [phone] [place] [address] [place] [address] Johnny Penn MD [address] [facility] [place] [address] 11/28/2024 7:45 AM CDT Virtual Visit [facility] Gastroenterology Clinic [address] [place] [phone] Meredith Carrera PA-C [address] [place] [address] 693785 documented as of this encounter Visit Diagnoses Diagnosis Psoriasis Other psoriasis documented in this encounter Additional Health Concerns Assessment Noted Time PHQ-9 Depression Total Score: 3 02/07/20 24 9:33 AM CDT documented as of this encounter Care Teams Molder Relationship Specialty Start Date End Date Esha Grimm PA-C [address] [place] [address] PCP - General Family Medicine 05/04/23 Diana Desir, [facility] [address] [place] [address] Pharmacist Pharmacist 04/17/21 Rain Galaviz PA-C [address] [place] [address] [address] [place] [address] Physician Food Safety Coordinator Dermatology 04/28/21 Tavia Wyatt MD [address] [place] [address] [address] [place] [address] Dermatology 07/14/21 Erica Farrell APRN EXECUTIVE BUSINESS COACH [address] [place], [place] [address] Nurse Practitioner Cardiovascular Disease 09/09/21 Rich Barrett MD [address] [facility] [address] [place], [place] 3212[address] Physician Ophthalmology 01/21/22 Neil Kent MD 500 [place], [place] 621405 Dermatology 02/24/22 [facility] [address] [place] [address] Assigned [place] Pharmacist 04/07/22 Livan Sharif MD [address], [facility] [address] [place], [place] 4[address] Cardiovascular Disease 05/14/22 Catherine Cm MD [address] [facility] [place], [place] [address] Cardiovascular Disease 07/21/22 Valery Veronica, PA-C [address] [place] [address] 027005 Physician Food Safety Coordinator Dermatology 07/21/22 Brea Quinn APRN EXECUTIVE BUSINESS COACH 500 [place] [address] Nurse Practitioner Dermatology 09/21/22 Alfonso Renteria MD [address] [place] [address] Assigned Neuroscience Provider 04/02/23 Radha Lomeli APRN EXECUTIVE BUSINESS COACH [address] [facility] [address] [place] [address] Assigned Heart and Vascular Provider 05/28/23 Jelena David OD [address] [place] [address] MD Ophthalmology 06/15/23 Esha Grimm PA-C [address] [place] [address] Assigned PCP 07/16/23 Valery Veronica PA-C [address] [place] [address] Physician Food Safety Coordinator Dermatology 09/19/23 Rey Tay MD [address] [place] [address] 822775 Gastroenterology 09/20/23 Rocky Zepeda DO [address] [place] [address] 694535 Physician Gastroenterology 09/20/23 Philip Dumont MD 6 [place], [place] 9[address] Physician Ophthalmology 09/22/23 Meredith Carrera PA-C 909 [place] [address] Assigned Gastroenterology Provider 11/01/23 Neil Kent MD [address] [address] Dermatology 11/02/23 [place] [address] 826047 Neurological Surgery 12/26/23 Audrey Waite PA-C 500 [place] [address] Physician Food Safety Coordinator Dermatology 02/28/24 Valery Veronica PA-C [address] [place] [address] Physician Food Safety Coordinator Dermatology 04/10/24 documented as of this encounter
--- OUTSIDE RECORDS SUMMARY | 2024-07-22 20:40 | XMS_ITS | Encounter Summary ---
Author Organization [place] Address [address] [place] [address] Care Team Providers Care Information Systems Coordinator Name Role Phone Diana Desir [facility] Unavailable Rain Galaviz PA-C Unavailable Tavia Wyatt MD Unavailable Erica Farrell APRN HEALTH AND WELLNESS COACH Unavailable Rich Barrett MD Unavailable [phone] Neil Kent MD Unavailable Diana Desir [facility] Unavailable Livan Sharif MD Unavailable Catherine Cm MD Unavailable + Valery Veronica PA-C Unavailable Brea Quinn SOLAR RESOURCE ASSESSOR HEALTH AND WELLNESS COACH Unavailable Brea Quinn SOLAR RESOURCE ASSESSOR HEALTH AND WELLNESS COACH Unavailable Jose Francisco Johnson MD Unavailable Alfonso Renteria MD Unavailable [phone] Esha Grimm PA-C Primary Care Provider [phone] Radha Lomeli APRN HEALTH AND WELLNESS COACH Unavailable Jelena David OD Unavailable Esha Grimm PA-C Unavailable [phone] Valery Veronica PA-C Unavailable [phone] Rey Tay MD Unavailable Rocky Zepeda DO Unavailable Philip Dumont MD Unavailable [phone] Meredith Carrera PA-C Unavailable [phone] Neil Kent MD Unavailable Juan Pablo Emmanuel MD Unavailable [phone] Audrey Waite PA-C Unavailable [phone] Valery Veronica PA-C Unavailable [phone] Herminia Hatch MD Unavailable Encounter Details Date Type Department Care Team (Late st Contact Info) Description 02/28/2024 [facility] Medical Advice [facility] Gastroenterology Clinic [address] [place] [address] Rain Burnette, RN Social History Tobacco Use [...] Answer Date Recorded PHQ-2 Score 1 02/07/2024 [facility] [...] exercise at this level? 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 [place] 73[address]45 11/28/2024 7:45 AM CDT Virtual Visit [facility] Gastroenterology Clinic [address] 4th [place] [address] Meredith Carrera PA-C [address] [place] [address] documented as of this encounter Visit Diagnoses Not on filedocumented in this encounter Additional Health Concerns Infection Onset Date Last Indicated Resolved Time Rule Out COVID-19 04/09/2024 04/09/2024 04/10/2024 6:48 PM CDT Assessment Noted Time PHQ-9 Depression Total Score: 3 02/07/20 24 9:33 AM CDT documented as of this encounter Care Teams Information Systems Coordinator Relationship Specialty Start Date End Date Esha Grimm PA-C [address] [place] [address] PCP - General Family Medicine 05/04/23 Diana Desir, [facility] [address] [place] [address] Pharmacist Pharmacist 04/17/21 Rain Galaviz PA-C [address] [place] [address] [address] [place] [address] Physician Assembler Utility Buildings Dermatology 04/28/21 Tavia Wyatt MD [address] [place] [address] [address] [facility] [address] Dermatology 07/14/21 Erica Farrell APRN HEALTH AND WELLNESS COACH 6[address] [facility] [address] [place] [address] Nurse Practitioner Cardiovascular Disease 09/09/21 Rich Barrett MD 516 [facility] 9A [place], [place] 286675 Physician Ophthalmology 01/21/22 Neil Kent MD 500 [place], [place] 495415 Dermatology 02/24/22 Diana Desir, [facility] [address] [place] [address] Assigned MTM Pharmacist 04/07/22 Livan Sharif MD [address] [facility] [address] [place] [address]175 Cardiovascular Disease 05/14/22 Catherine Cm MD [address] [facility] [place] 882325 Cardiovascular Disease 07/21/22 Valery Veronica, PAUcheC 909 [place], [place] 74[address]65 Physician Assembler Utility Buildings Dermatology 07/21/22 Brea Quinn APRN HEALTH AND WELLNESS COACH 500 [place] [address] Nurse Practitioner Dermatology 09/21/22 Brea Quinn APRN HEALTH AND WELLNESS COACH 64[address] [facility] [place] [address] Assigned Surgical Provider 10/09/22 05/01/24 [place] [address] [place] [address] Assigned Musculoskeletal Provider 10/09/22 05/01/24 Alfonso Renteria MD [address] [facility] [address] [place] [address] Assigned Neuroscience Provider 04/02/23 Armani Radha Stovall SOLAR RESOURCE ASSESSOR HEALTH AND WELLNESS COACH [address] [place] [address]25 Assigned Heart and Vascular Provider 05/28/23 Jelena David OD [address] [facility] [address] [place] [id number] MD Ophthalmology 06/15/23 Esha Grimm PA-C [address] [place] [phone] Assigned PCP 07/16/23 Valery Veronica PA-C [address] [place] [address] 526585 Physician Assembler Utility Buildings Dermatology 09/19/23 Rey Tay MD [address] [place] [address] 533545 Gastroenterology 09/20/23 Rocky Zepeda DO [address] [place] [address] 313175 Physician Gastroenterology 09/20/23 Philip Dumont MD [address] [place] [address] 722915 Physician Ophthalmology 09/22/23 Meredith Carrera PA-C [address] [place] [address] Assigned Gastroenterology Provider 11/01/23 Neil Kent MD [address] [address] Dermatology 11/02/23 [place] [address] [address] Neurological Surgery 12/26/23 Audrey Waite PA-C [address] [place] [address] Physician Assembler Utility Buildings Dermatology 02/28/24 Valery Veronica PA-C 581262 [address] [place] [address] Physician Assembler Utility Buildings Dermatology 04/10/24 Herminia Hatch MD [facility]5 [place], [place] 18[address] Assigned Rheumatology Provider 07/02/24 documented as of this encounter
--- OUTSIDE RECORDS SUMMARY | 2024-07-22 20:40 | XMS_ITS | Encounter Summary ---
Author Organization [facility] Address [address] [place] [address] Care Team Providers Care Napkin Band Wrapper Name Role Phone Diana Desir [facility] Unavailable Rain Galaviz PAUcheC Unavailable Tavia Wyatt MD Unavailable Erica Farrell [employer] SOCIAL AND HUMAN SERVICES ASSISTANT Unavailable Rich Barrett MD Unavailable [phone] Neil Kent MD Unavailable Kendrick Desirelle Stanislav [facility] Unavailable Livan Sharif MD Unavailable Catherine Cm MD Unavailable + Valery Veronica-C Unavailable Brea Quinn [employer] SOCIAL AND HUMAN SERVICES ASSISTANT Unavailable [phone] Alfonso Renteria MD Unavailable [phone] Esha GrimmC Primary Care Provider [phone] Radha Lomeli [employer] SOCIAL AND HUMAN SERVICES ASSISTANT Unavailable Jelena David OD Unavailable [phone] Alfa, Esha M PA-C Unavailable [phone] Valery Veronica PA-C Unavailable [phone] Rey Tay MD Unavailable Rocky Zepeda DO Unavailable Philip Dumont MD Unavailable [phone] Meredith CarreraC Unavailable [phone] Neil Kent MD Unavailable Juan Pablo Emmanuel MD Unavailable [phone] Audrey Waite PA-C Unavailable [phone] Valery Veronica PA-C Unavailable [phone] Reason for Visit * Reason Onset Date Comments Medication Question 06/08/2024 Encounter Details Date Type Department Care Team (Late st Contact Info) Description 06/08/2024 Telephone [facility] [address] [place] [address] Esha Grimm PA-C [address] [place] [address] Medication Question Social History Tobacco [...] How often do you attend [facility] or evangelical services? 1 to 4 times [...] exercise at this level? 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 Pt verbalizes understanding and is agreeable with plan. Pt denies any further questions or concernsat this time. Pao Marcos RN Clinic RN [facility] INE BEADING MACHINE TENDER * Telephone Encounter - Esha Grimm PA-C - 06/08/2024 3:23 PM CST If she is unsure if she took the paxil I would recommend not the dose at this point and to just wait to take her normal dosing tomorrow. Thanks! Esha Grimm PA-C INE BEADING MACHINE TENDER * Telephone Encounter - Asiya Reddy RN - 06/08/2024 1:57 PM CST Patient calling to get to DIPTI Valderrama. Discussed [facility] does not take incoming calls. Patient states she has been transferred directly to Diana for this issue in the past. Discussed Diana is not in today so do not want to transfer to her. Patient states she does not know if she took any of her daily medications this am- metoprolol, omeprazole and paroxetine. Asked if takes pills out of pill box or bottles. She states she takes out of pill bottle. Discussed setting reminder on phone. States her and her daughter did not feel well this am and slept in and can not remember if she took her medications. Does not feel she took them but is unsure and wants to be told if she should take. Main concern is the paroxetine. She feels she will just take metoprolol and omeprazole while waiting for call back on paroxetine. Please advise. Asiya Reddy RN INE BEADING MACHINE TENDER documented in this encounter Plan of Treatment Upcoming Encounters Date Type Department Care Team (Late st Contact Info) Description 10/23/2024 9:30 AM CDT Office Visit [facility] Neurology Clinics [address], [address] [place] [address] [place] [address] [place] [address] 349407 Johnny Penn MD [address] [place], [place] [address]89[address] 11/28/2024 7:45 AM CDT Virtual Visit [facility] Gastroenterology Clinic [address] 4th [place] [phone] Meredith Carrera PA-C [address] [place] [address] documented as of this encounter Visit Diagnoses Not on filedocumented in this encounter Additional Health Concerns Assessment Noted Time PHQ-9 Depression Total Score: 3 02/07/20 24 9:33 AM CDT documented as of this encounter Care Teams Napkin Band Wrapper Relationship Specialty Start Date End Date Esha Grimm PA-C [address] [place] [phone] PCP - General Family Medicine 05/04/23 Diana Desir, [facility] [address] [place] [address] Pharmacist Pharmacist 04/17/21 Rain Galaviz PA-C [address] [place] [address] [address] [facility] [place] [address] Physician Physical Director Dermatology 04/28/21 Tavia Wyatt MD [address] [place] [address] [address] [facility] [place] [address] Dermatology 07/14/21 Erica Farrell APRN SOCIAL AND HUMAN SERVICES ASSISTANT [address] [facility] [address] [place] [address] Nurse Practitioner Cardiovascular Disease 09/09/21 Rich Barrett MD [address] 268[address] Physician Ophthalmology 01/21/22 Neil Kent MD [address] [place] [address] 846955 Dermatology 02/24/22 Diana Desir, [facility] 3033 [place], [place] [address] Assigned MTM Pharmacist 04/07/22 Livan Sharif MD [address] [facility] [address] [place] [address] Cardiovascular Disease 05/14/22 Catherine Cm MD [address] [facility] [address] [place] [address] Cardiovascular Disease 07/21/22 Valery Veronica, PA-C [address] [place] [address] 610255 Physician Physical Director Dermatology 07/21/22 Brea Quinn APRN SOCIAL AND HUMAN SERVICES ASSISTANT 500 [place], [place] [phone] Nurse Practitioner Dermatology 09/21/22 Alfonso Renteria MD 5775 [facility] 200 [place], [place] 495[address]16 Assigned Neuroscience Provider 04/02/23 Radha Lomeli APRN SOCIAL AND HUMAN SERVICES ASSISTANT [address] [place] [address] Assigned Heart and Vascular Provider 05/28/23 Jelena David OD 3305 [facility] [place] [address] MD Ophthalmology 06/15/23 Esha Grimm PA-C [address] [place] [address] Assigned PCP 07/16/23 Valery Veronica PA-C [address] [place] [address] 396435 Physician Physical Director Dermatology 09/19/23 Rey Tay MD [address] [place] [address] 903815 MD Gastroenterology 09/20/23 Rocky Zepeda DO [address] [place] [address] 274895 Physician Gastroenterology 09/20/23 Philip Dumont MD [address] [place] [address]645 Physician Ophthalmology 09/22/23 Meredith Carrera PA-C [address] [place] [address] 457635 Assigned Gastroenterology Provider 11/01/23 Neil Kent MD [address] [address] Dermatology 11/02/23 [place] [address] [place] [address] Neurological Surgery 12/26/23 Audrey Waite PA-C 500 [place] [address] Physician Physical Director Dermatology 02/28/24 Valery Veronica PA-C [address] [place] [address] Physician Physical Director Dermatology 04/10/24 documented as of this encounter
--- OUTSIDE RECORDS SUMMARY | 2024-07-22 20:40 | XMS_ITS | Encounter Summary ---
Author Organization [place] Address [address] [place] [address] Care Team Providers Care Wafer Fabrication Operator Name Role Phone Diana Desir [facility] Unavailable Rain Galaviz PA-C Unavailable Tavia Wyatt MD Unavailable Erica Farrell APRN GRAIN FARMER Unavailable Rich Barrett MD Unavailable [phone] Neil Kent MD Unavailable Diana Desir [facility] Unavailable [phone] Livan Sharif MD Unavailable Catherine Cm MD Unavailable + Valery Veronica PA-C Unavailable Brea Quinn DESIGN RELEASE ENGINEER GRAIN FARMER Unavailable Brea Quinn DESIGN RELEASE ENGINEER GRAIN FARMER Unavailable Jose Francisco Johnson MD Unavailable Alfonso Renteria MD Unavailable [phone] Esha Grimm PA-C Primary Care Provider Radha Lomeli APRN GRAIN FARMER Unavailable Jelena David OD Unavailable Esha Grimm PA-C Unavailable Valery Veronica PA-C Unavailable [phone] Rey Tay MD Unavailable Rocky Zepeda DO Unavailable Philip Dumont MD Unavailable [phone] Meredith Carrera PA-C Unavailable [phone] Neil Kent MD Unavailable Juan Pablo Emmanuel MD Unavailable [phone] Audrey Waite PA-C Unavailable [phone] Valery Veronica PA-C Unavailable [phone] Herminia Hatch MD Unavailable Encounter Details Date Type Department Care Team (Late st Contact Info) Description 03/19/2024 [facility] Medical Advice [facility]ology [facility] [address] [place] [address] Wesley Powell Social History Tobacco [...] Answer Date Recorded PHQ-2 Score 1 02/07/2024 [facility] [...] exercise at this level? 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 Gender Identity Female 03/02/2021 5:45 PM CDT Sexual Orientation Straight 02/28/2020 12 :51 AM CDT documented as of this encounter Plan of Treatment Upcoming Encounters Date Type Department Care Team (Late st Contact Info) Description 10/23/2024 9:30 AM CDT Office Visit [facility] Neurology [address], [address] [place] [address] [place] [address] [place], [place] 89[address] Johnny Penn MD 6045 [facility] [place] [address] 11/28/2024 7:45 AM CDT Virtual Visit [facility]ology Clinic [address] 4th [place] [address] Meredith Carrera PA-C [address] [place] [address] documented as of this encounter Visit Diagnoses Not on filedocumented in this encounter Additional Health Concerns Infection Onset Date Last Indicated Resolved Time Rule Out COVID-19 04/09/2024 04/09/2024 04/10/2024 6:48 PM CDT Assessment Noted Time PHQ-9 Depression Total Score: 3 02/07/20 24 9:33 AM CDT documented as of this encounter Care Teams Wafer Fabrication Operator Relationship Specialty Start Date End Date Esha Grimm PA-C [address] [place] [address] PCP - General Family Medicine 05/04/23 Diana Desir, [facility] [address] [place] [address] Pharmacist Pharmacist 04/17/21 Rain Galaviz PA-C [address] [place] [address] [address] [place] [address] [facility] Dermatology 04/28/21 Tavia Wyatt MD [address] [place] [address] [address] [facility] [place] [address] Dermatology 07/14/21 Erica Farrell APRN GRAIN FARMER 6405 [facility] [address] [place] 868335 Nurse Practitioner Cardiovascular Disease 09/09/21 Rich Barrett MD 516 [facility] [place], [place] 520945 Physician Ophthalmology 01/21/22 Neil Kent MD 500 [place], [place] 726585 Dermatology 02/24/22 Diana Desir, [facility] 3033 [place] [address] Assigned MTM Pharmacist 04/07/22 Livan Sharif MD [address] [facility] [address] [place] [address]95 Cardiovascular Disease 05/14/22 Catherine Cm MD [address] [facility] [place] 758845 Cardiovascular Disease 07/21/22 Valery Veronica, PAUcheC 909 [place], [place] 244765 [facility] Dermatology 07/21/22 Brea Quinn APRN GRAIN FARMER 500 [place] [address] Nurse Practitioner Dermatology 09/21/22 Brea Quinn APRN GRAIN FARMER 6401 [facility] [place] [address] Assigned Surgical Provider 10/09/22 05/01/24 [place] [address] [place] [address] Assigned Musculoskeletal Provider 10/09/22 05/01/24 Alfonso Renteria MD 5775 [facility] [address] 200 [place] [address] Assigned Neuroscience Provider 04/02/23 Armani Radha Stovall DESIGN RELEASE ENGINEER GRAIN FARMER [address] [place] [address]405 Assigned Heart and Vascular Provider 05/28/23 Jelena David OD [address] [facility] [address] [place] [id number] MD Ophthalmology 06/15/23 Esha Grimm PA-C [address] [place] [phone] Assigned PCP 07/16/23 Valery Veronica PA-C [address] [place] [address] 778725 [facility] Dermatology 09/19/23 Rey Tay MD [address] [place] [address] 308245 Gastroenterology 09/20/23 Rocky Zepeda DO [address] [place] [address] 011115 Physician Gastroenterology 09/20/23 Philip Dumont MD [address] [place] [address] 762835 Physician Ophthalmology 09/22/23 Meredith Carrera PA-C [address] [place] [address] Assigned Gastroenterology Provider 11/01/23 Neil Kent MD [address] [address] Dermatology 11/02/23 [place] [address] [address] Neurological Surgery 12/26/23 Audrey Waite PA-C [address] [place] [address] [facility] Dermatology 02/28/24 Valery Veronica PA-C [address] [place] [address] [facility] Dermatology 04/10/24 Herminia Hatch MD [facility]5 [place], [place] 93408[address] Assigned Rheumatology Provider 07/02/24 documented as of this encounter
--- OUTSIDE RECORDS SUMMARY | 2024-07-22 20:40 | XMS_ITS | Encounter Summary ---
Author Organization [place] Address [address] [place] [address] Care Team Providers Care Powerhouse Operator Name Role Phone Diana Desir [facility] Unavailable [phone] Rain Galaviz PAUcheC Unavailable Tavia Wyatt MD Unavailable Erica Farrell SKID MAN REFINERY OPERATOR ASSISTANT Unavailable Rich Barrett MD Unavailable [phone] Neil Kent MD Unavailable Kendrick Desirelle Stanislav [facility] Unavailable Livan Sharif MD Unavailable Catherine Cm MD Unavailable + Valery Veronica-C Unavailable Brea Quinn SKID MAN REFINERY OPERATOR ASSISTANT Unavailable Alfonso Renteria MD Unavailable [phone] Esha GrimmC Primary Care Provider Radha Lomeli SKID MAN REFINERY OPERATOR ASSISTANT Unavailable Jelena David OD Unavailable Esha Grimm PA-C Unavailable [phone] Valery Veronica PA-C Unavailable [phone] Rey Tay MD Unavailable Rocky Zepeda DO Unavailable Philip Dumont MD Unavailable [phone] Meredith Carrera-C Unavailable [phone] Neil Kent MD Unavailable Juan Pablo Emmanuel MD Unavailable [phone] Audrey Waite PA-C Unavailable [phone] Valery Veronica PA-C Unavailable [phone] Herminia Hatch MD Unavailable Encounter Details Date Type Department Care Team (Late st Contact Info) Description 06/20/2024 [facility] Medical Advice [address] [address] Carley Myles RN Social History Tobacco [...] exercise at this level? 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 Gender Identity Female 03/02/2021 5:45 PM CDT Sexual Orientation Straight 02/28/2020 12 :51 AM CDT documented as of this encounter Plan of Treatment Upcoming Encounters Date Type Department Care Team (Late st Contact Info) Description 10/23/2024 9:30 AM CDT Office Visit [facility] Neurology [address] [place] [address] [place] [address] [place] [address] Johnny Penn MD 9405 [facility] [place] 6[address] 11/28/2024 7:45 AM CDT Virtual Visit [facility] G[facility]ology [facility] [address] 4th [place] [address] Meredith Carrera PA-C [address] [place] [address] 141405 documented as of this encounter Visit Diagnoses Not on filedocumented in this encounter Additional Health Concerns Assessment Noted Time PHQ-9 Depression Total Score: 3 02/07/20 24 9:33 AM CDT documented as of this encounter Care Teams Powerhouse Operator Relationship Specialty Start Date End Date Esha Grimm PA-C [address] [place] [address] PCP - General Family Medicine 05/04/23 Diana Desir, [facility] [address] [place] [address] Pharmacist Pharmacist 04/17/21 Rain Galaviz PA-C [address] [place] [address] [address] [place] [address] Physician Client Reporting Associate Dermatology 04/28/21 Tavia Wyatt MD [address] [place] [address] [address] [place], [place] [phone] Dermatology 07/14/21 Erica Farrell APRN REFINERY OPERATOR ASSISTANT 6405 [facility] [address] [place] [address] Nurse Practitioner Cardiovascular Disease 09/09/21 Rich Barrett MD 516 [facility] 9A [place], [place] 430155 Physician Ophthalmology 01/21/22 Neil Kent MD 500 [place], [place] 882915 Dermatology 02/24/22 Diana Desir, [facility] 3033 [place] [address] Assigned MTM Pharmacist 04/07/22 Livan Sharif MD [address] [place] [address] [place] 3[address]85 Cardiovascular Disease 05/14/22 Catherine Cm MD [address] [place] [address] [place], [place] 329135 Cardiovascular Disease 07/21/22 Valery Veronica PA-C 909 [place], [place] 230295 Physician Client Reporting Associate Dermatology 07/21/22 Brea Quinn APRN REFINERY OPERATOR ASSISTANT 500 [place], [place] 6[address]95 Nurse Practitioner Dermatology 09/21/22 Alfonso Renteria MD 5775 [facility] 200 [place], [place] 865646 Assigned Neuroscience Provider 04/02/23 Radha Lomeli, [place] REFINERY OPERATOR ASSISTANT [address] [place] 07[address]05 Assigned Heart and Vascular Provider 05/28/23 Jelena David OD [address] [facility] [place] [address] Ophthalmology 06/15/23 Esha Grimm PAUcheC [address] [place] [address] Assigned PCP 07/16/23 Valery Veronica PA-C [address] [place] [address] Physician Client Reporting Associate Dermatology 09/19/23 Rey Tay MD [address] [place] [address] MD Gastroenterology 09/20/23 Rocky Zepeda DO [address] [place] [address] 743225 Physician Gastroenterology 09/20/23 Philip Dumont MD [address] [place] [address] Physician Ophthalmology 09/22/23 Meredith Carrera PA-C [address] [place] [address] Assigned Gastroenterology Provider 11/01/23 Neil Kent MD [address] [address] Dermatology 11/02/23 [place] [address] [place], [place] [address] Neurological Surgery 12/26/23 Audrey Waite PA-C [address] [place] [address] 913225 Physician Client Reporting Associate Dermatology 02/28/24 Valery Veronica PA-C [address] [place] [address] Physician Client Reporting Associate Dermatology 04/10/24 Herminia Hatch MD [address] [place] [address] [id number] Assigned Rheumatology Provider 07/02/24 documented as of this encounter
--- OUTSIDE RECORDS SUMMARY | 2024-07-22 20:40 | XMS_ITS | Encounter Summary ---
Author Organization [place] Address [address] [place] [address] Care Team Providers Care Contact Acid Plant Operator Helper Name Role Phone Diana Desir [facility] Unavailable Rain Galaviz PAUcheC Unavailable Tavia Wyatt MD Unavailable Erica Farrell GOLD NIB GRINDER TOGGLER Unavailable Rich Barrett MD Unavailable [phone] Neil Kent MD Unavailable Kendrick Desirelle Stanislav [facility] Unavailable Livan Sharif MD Unavailable Catherine Cm MD Unavailable + Valery Veronica-C Unavailable [phone] Brea Quinn GOLD NIB GRINDER TOGGLER Unavailable Alfonso Renteria MD Unavailable [phone] Esha GrimmC Primary Care Provider [phone] Radha Lomeli GOLD NIB GRINDER TOGGLER Unavailable Jelena David OD Unavailable Esha Grimm PA-C Unavailable [phone] Valery Veronica PA-C Unavailable [phone] Rey Tay MD Unavailable Rocky Zepeda DO Unavailable Philip Dumont MD Unavailable [phone] Meredith CarreraC Unavailable [phone] Neil Kent MD Unavailable Juan Pablo Emmanuel MD Unavailable [phone] Audrey Waite-C Unavailable [phone] Valery Veronica-C Unavailable [phone] Herminia Hatch MD Unavailable Encounter Details Date Type Department Care Team (Late st Contact Info) Description 06/21/2024 [facility] Medical Advice [address] [address] Antonella Eldridge RN Social History Tobacco Use Types Packs/Day [...] Score 1 02/07/2024 [facility] - [...] exercise at this level? 20 min 05/07/2024 [place] Depression Scale Answer Date Recorded [place] Depression Score 5 01/14/2021 Last EPDS Self [...] PM CDT Legal Sex Female 4:13 AM TOGGLER Gender Identity Female 03/02/2021 5:45 PM CDT Sexual Orientation Straight 02/28/2020 12 :51 AM CDT documented as of this encounter Plan of Treatment Upcoming Encounters Date Type Department Care Team (Late st Contact Info) Description 10/23/2024 9:30 AM CDT Office Visit [facility] Neurology [address], [address] [place] [address] [place] [address] [place] [address] Johnny Penn MD [address] [facility] [place] 328375 11/28/2024 7:45 AM CDT Virtual Visit [facility] Gastroenterology Clinic [address] 4th [place] [address] Meredith Carrera PA-C [address] [place] [address] documented as of this encounter Visit Diagnoses Not on filedocumented in this encounter Additional Health Concerns Assessment Noted Time PHQ-9 Depression Total Score: 3 02/07/20 24 9:33 AM CDT documented as of this encounter Care Teams Contact Acid Plant Operator Helper Relationship Specialty Start Date End Date Esha Grimm PA-C [address] [place] [address] PCP - General Family Medicine 05/04/23 Diana Desir, [facility] [address] [place], [place] [address] Pharmacist Pharmacist 04/17/21 Rain Galaviz PA-C [address] [place] [address] [address] [place] [address] Physician Devops Consultant Dermatology 04/28/21 Tavia Wyatt MD [address] [place] [address] [address] [place] [address] [id number] Dermatology 07/14/21 Erica Farrell APRN TOGGLER 6405 [facility] [address] [place], [place] 9[address] Nurse Practitioner Cardiovascular Disease 09/09/21 Rich Barrett MD [address] 7707[address] Physician Ophthalmology 01/21/22 Neil Kent MD 500 [place], [place] 405825 Dermatology 02/24/22 Dinaa Desir, [facility] 3033 [place], [place] 134376 Assigned MTM Pharmacist 04/07/22 Livan Sharif MD [address] [address] [place] [address] Cardiovascular Disease 05/14/22 Catherine Cm MD [address] [address] [place], [place] [address] Cardiovascular Disease 07/21/22 Valery Veronica, PA-C [address]09 [place], [place] 286795 Physician Devops Consultant Dermatology 07/21/22 Brea Quinn APRN TOGGLER 500 [place], [place] 154005 Nurse Practitioner Dermatology 09/21/22 Alfonso Renteria MD 5775 [facility] 200 [place], [place] 853956 Assigned Neuroscience Provider 04/02/23 Radha Lomeli APRN TOGGLER [address] [place] 93[address]05 Assigned Heart and Vascular Provider 05/28/23 Jelena David OD [address] [facility] [place] [address] Ophthalmology 06/15/23 Esha Grimm PA-C [address] [place] [address] Assigned PCP 07/16/23 Valery Veronica PA-C [address] [place] [address] 829425 Physician Devops Consultant Dermatology 09/19/23 Rey Tay MD [address] [place] [address] MD Gastroenterology 09/20/23 Rocky Zepeda DO [address] [place] [address] 570735 Physician Gastroenterology 09/20/23 Philip Dumont MD [address] [place] [address] 217775 Physician Ophthalmology 09/22/23 Meredith Carrera PA-C [address] [place] [address] Assigned Gastroenterology Provider 11/01/23 Neil Kent MD [address] [address] Dermatology 11/02/23 [place] [address] [place], [place] 1540[address] Neurological Surgery 12/26/23 Audrey Waite PA-C [address] [place] [address] 155335 Physician Devops Consultant Dermatology 02/28/24 Valery Veronica PA-C [address] [place] [address] Physician Devops Consultant Dermatology 04/10/24 Herminia Hatch MD [facility]5 [place], [place] 99384125 Assigned Rheumatology Provider 07/02/24 documented as of this encounter
--- OUTSIDE RECORDS SUMMARY | 2024-07-22 20:40 | XMS_ITS | Encounter Summary ---
Author Organization [place] Address [address] [place] [address] Care Team Providers Care Rotary Adjuster Name Role Phone Diana Desir [facility] Unavailable Rain Galaviz PAUcheC Unavailable [phone] Tavia Wyatt MD Unavailable Erica Farrell COLD WORK OPERATOR SHELF STOCKER Unavailable Rich Barrett MD Unavailable [phone] Neil Kent MD Unavailable Kendrick Desirelle Stanislav [facility] Unavailable Livan Sharif MD Unavailable Catherine Cm MD Unavailable + Valery Veronica-C Unavailable Brea Quinn COLD WORK OPERATOR SHELF STOCKER Unavailable Alfonso Renteria MD Unavailable [phone] Esha GrimmC Primary Care Provider Radha Lomeli COLD WORK OPERATOR SHELF STOCKER Unavailable Jelena David OD Unavailable [place], Esha M PA-C Unavailable [phone] Valery Veronica PA-C Unavailable Rey Tay MD Unavailable Rocky Zepeda DO Unavailable Philip Dumont MD Unavailable [phone] Meredith CarreraC Unavailable [phone] Neil Kent MD Unavailable Juan Pablo Luong MD Unavailable Audrey Waite PA-C Unavailable [phone] Valery Veronica PA-C Unavailable [phone] Reason for Visit * Reason Onset Date Comments Previsit 06/21/2024 Encounter Details Date Type Department Care Team (Late st Contact Info) Description 06/21/2024 PRE VISIT [facility] Neurology [address], [address] [place] [address] Johnny Penn MD 9154 [place] [address] Previsit Social History Tobacco Use Types Packs/Day [...] exercise at this level? 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 Gender Identity Female 03/02/2021 5:45 PM CDT Sexual Orientation Straight 02/28/2020 12 :51 AM CDT documented as of this encounter Miscellaneous Notes * Telephone Encounter - Eladio Adams - 06/04/2024 1:43 PM [facility] NEUROLOGY PRE- VISIT RECORDS RECEIVED FROM: ref by JUAN PABLO LUONG REASON FOR VISIT: Paresthesia of arm PROVIDER: Isamar DATE OF APPT: 06/21/2024 NOTES (FOR ALL VISITS) STATUS DETAILS OFFICE NOTE from referring provider Internal Referral and notes in chart OFFICE NOTE from other specialist Internal PT last completed 05/14/2024 DISCHARGE SUMMARY from hospital N/A DISCHARGE REPORT from ER N/A EEG N/A EMG REPORT N/A IMAGING (FOR ALL VISITS) MRI (HEAD, NECK, SPINE) Internal MR cervical 01/06/2024 CT (HEAD, NECK, SPINE) N/A XR (HEAD, NECK, SPINE) N/A LOADER documented in this encounter Plan of Treatment Upcoming Encounters Date Type Department Care Team (Late st Contact Info) Description 10/23/2024 9:30 AM CDT Office Visit [facility] Neurology [facility] [address] [facility], [address] [place] [address] [place] [address] [place] 380967 Johnny Penn MD 2215 [place], [place] [address]215 11/28/2024 7:45 AM CDT Virtual Visit [facility] Gastroenterology Clinic [address] 4th [place] [address] Meredith Carrera PA-C [address] [place] [address] documented as of this encounter Visit Diagnoses Not on filedocumented in this encounter Additional Health Concerns Assessment Noted Time PHQ-9 Depression Total Score: 3 02/07/20 24 9:33 AM CDT documented as of this encounter Care Teams Rotary Adjuster Relationship Specialty Start Date End Date Esha Grimm PA-C [address] [place] [phone] PCP - General Family Medicine 05/04/23 Diana Desir, [facility] [address] [place] [address] Pharmacist Pharmacist 04/17/21 Rain Galaviz PA-C [address] [place] [address] [address] [place] [phone] Physician Sports Media Dermatology 04/28/21 Tavia Wyatt MD [address] [place] [address] [address] [facility] [place] [place] [phone] Dermatology 07/14/21 Erica Farrell APRN SHELF STOCKER [address] [place], [place] 496795 Nurse Practitioner Cardiovascular Disease 09/09/21 Rich Barrett MD [address] [place] [address] Physician Ophthalmology 01/21/22 Neil Kent MD [address] [place] [address] [phone] Dermatology 02/24/22 Diana Desir, [facility] 3033 [place], [place] 570446 Assigned MTM Pharmacist 04/07/22 Livan Sharif MD [address] [facility] [place] [address] Cardiovascular Disease 05/14/22 Catherine Cm MD [address] [facility] [place] 383205 Cardiovascular Disease 07/21/22 Valery Veronica, PAUcheC [address] [place] [address] 825285 Physician Sports Media Dermatology 07/21/22 Brea Quinn, COLD WORK OPERATOR SHELF STOCKER 500 [place] [address] Nurse Practitioner Dermatology 09/21/22 Alfonso Renteria MD 5775 [facility] [address] 200 [place], [place] 421346 Assigned Neuroscience Provider 04/02/23 Radha Lomeli APRN SHELF STOCKER 6405 [facility] [address] [place], [place] 84[address] Assigned Heart and Vascular Provider 05/28/23 Jelena David OD [address] [facility] [address] [place] [id number] MD Ophthalmology 06/15/23 Esha Grimm PA-C [address] [place] [address] Assigned PCP 07/16/23 Valery Veronica PA-C 909 [place], [place] 0[address]355 Physician Sports Media Dermatology 09/19/23 Rey Tay MD 909 [place] [address] Gastroenterology 09/20/23 Rocky Zepeda DO 500 [place] [address] Physician Gastroenterology 09/20/23 Philip Dumont MD 516 [place] [address] Physician Ophthalmology 09/22/23 Meredith [place]rera PA-C [address] [place] [address] Assigned Gastroenterology Provider 11/01/23 Neil Kent MD [address] [address] Dermatology 11/02/23 [place] [address] [place] [address] [address] Neurological Surgery 12/26/23 Audrey Waite PA-C [address] [place] [address] Physician Sports Media Dermatology 02/28/24 Valery Veronica PA-C 760828 [address] [address] Physician Sports Media Dermatology 04/10/24 documented as of this encounter
--- OUTSIDE RECORDS SUMMARY | 2024-07-22 20:40 | XMS_ITS | Encounter Summary ---
Author Organization [facility] Address [address] [place] [address] Care Team Providers Care Diagnostic Imaging Manager Name Role Phone Diana Desir [facility] Unavailable Rain Galaviz PAUcheC Unavailable [phone] Tavia Wyatt MD Unavailable Erica Farrell SENIOR EXAMINER NET MVC DEVELOPER Unavailable Rich Barrett MD Unavailable [phone] Neil Kent MD Unavailable Kendrick Desirelle Stanislav [facility] Unavailable Livan Sharif MD Unavailable Catherine Cm MD Unavailable + Valery Veronica-C Unavailable Brea Quinn SENIOR EXAMINER NET MVC DEVELOPER Unavailable Alfonso Renteria MD Unavailable [phone] Esha GrimmC Primary Care Provider Radha Lomeli SENIOR EXAMINER NET MVC DEVELOPER Unavailable Jelena David OD Unavailable Alfa, Esha M PA-C Unavailable [phone] Valery Veronica PA-C Unavailable [phone] Rey Tay MD Unavailable Rocky Zepeda DO Unavailable Philip Dumont MD Unavailable [phone] Meredith Carrera-C Unavailable [phone] Neil Kent MD Unavailable Juan Pablo Emmanuel MD Unavailable [phone] Audrey Waite PA-C Unavailable [phone] Valery Veronica-C Unavailable [phone] Herminia Hatch MD Unavailable Encounter Details Date Type Department Care Team (Late st Contact Info) Description 06/05/2024 [facility] Medical Advice [address] [address] Herminia Hatch MD [address] [place] [address] Social History Tobacco Use Types Packs/Day Years [...] 02/07/2024 [facility] of Occupat [...] exercise at this level? 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 Gender Identity Female 03/02/2021 5:45 PM CDT Sexual Orientation Straight 02/28/2020 12 :51 AM CDT documented as of this encounter Plan of Treatment Upcoming Encounters Date Type Department Care Team (Late st Contact Info) Description 10/23/2024 9:30 AM CDT Office Visit [facility] Neurology [address] [place] [address] [place] [address] [place] [address] 224467 Johnny Penn MD [address] [place] [address] 11/28/2024 7:45 AM CDT Virtual Visit [facility] Gastroenterology Clinic [address] 4th [place] [address] Meredith Carrera PA-C [address] [place] [address] documented as of this encounter Visit Diagnoses Not on filedocumented in this encounter Additional Health Concerns Assessment Noted Time PHQ-9 Depression Total Score: 3 02/07/20 24 9:33 AM CDT documented as of this encounter Care Teams Diagnostic Imaging Manager Relationship Specialty Start Date End Date Esha Grimm PA-C [address] [place] [address] PCP - General Family Medicine 05/04/23 Diana Desir, [facility] 30[address] [place] [address] Pharmacist Pharmacist 04/17/21 Rain Galaviz PA-C [address] [place] [address] [address] [place] [address] Physician Installation Supervisor Dermatology 04/28/21 Tavia Wyatt MD [address] [place] [address] [address] [place] [address] Dermatology 07/14/21 Erica Farrell APRN NET MVC DEVELOPER 6405 [facility] [address] [place], [place] 378[address] Nurse Practitioner Cardiovascular Disease 09/09/21 Rich Barrett MD 516 [facility] 9A [place], [place] 2601[address] Physician Ophthalmology 01/21/22 Neil Kent MD [address] [place] [address] Dermatology 02/24/22 [facility] 3033 [place] [address] Assigned MTM Pharmacist 04/07/22 Livan Sharif MD [address], [facility] [address] [place], [place] [address] Cardiovascular Disease 05/14/22 Catherine Cm MD [address] [facility]00 [place] [address] Cardiovascular Disease 07/21/22 Valery Veronica, PA-C 909 [place] [address] Physician Installation Supervisor Dermatology 07/21/22 Brea Quinn APRN NET MVC DEVELOPER 500 [place] [address] Nurse Practitioner Dermatology 09/21/22 Alfonso Renteria MD 5775 [facility] 200 [place] [address] Assigned Neuroscience Provider 04/02/23 Radha Lomeli APRN NET MVC DEVELOPER [address] [place] [id number] Assigned Heart and Vascular Provider 05/28/23 Jelena David OD [address] [facility] [place] [address] MD Ophthalmology 06/15/23 Esha Grimm PA-C [address] [place] [address] Assigned PCP 07/16/23 Valery Veronica PA-C [address] [place] [address] 053785 Physician Installation Supervisor Dermatology 09/19/23 Rey Tay MD [address] [place] [address] 425365 MD Gastroenterology 09/20/23 Rocky Zepeda DO [address] [place] [address] 652235 Physician Gastroenterology 09/20/23 Philip Dumont MD [address] [place] [address] 374515 Physician Ophthalmology 09/22/23 Meredith Carrera PA-C [address] [place] [address] 944605 Assigned Gastroenterology Provider 11/01/23 Neil Kent MD [address] [place] [address] Dermatology 11/02/23 [place] [address] [place] [place] [address] Neurological Surgery 12/26/23 Audrey Waite PA-C 500 [place] [address] Physician Installation Supervisor Dermatology 02/28/24 Valery Veronica PA-C [address] [address] Physician Installation Supervisor Dermatology 04/10/24 Herminia Hatch MD [address] [place] [address] Assigned Rheumatology Provider 07/02/24 documented as of this encounter
--- OUTSIDE RECORDS SUMMARY | 2024-07-22 20:40 | XMS_ITS | Encounter Summary ---
Author Organization [facility] Address [address] [place] [address] Care Team Providers Care Hvac Technician Residential Name Role Phone Diana Desir [facility] Unavailable Rain Galaviz PA-C Unavailable Tavia Wyatt MD Unavailable Erica Farrell APRN MAINTENANCE COORDINATOR Unavailable Rich Barrett MD Unavailable [phone] Neil Kent MD Unavailable Diana Desri [facility] Unavailable [phone] Livan Sharif MD Unavailable Catherine Cm MD Unavailable + Valery Veronica PA-C Unavailable [phone] Brea Quinn APPIAN BPM DEVELOPER MAINTENANCE COORDINATOR Unavailable Brea Quinn APPIAN BPM DEVELOPER MAINTENANCE COORDINATOR Unavailable Jose Francisco Johnson MD Unavailable Alfonso Renteria MD Unavailable [phone] Esha Grimm PA-C Primary Care Provider [phone] Radha Lomeli APRN MAINTENANCE COORDINATOR Unavailable Jelena David OD Unavailable Esha Grimm PA-C Unavailable [phone] Valery Veronica PA-C Unavailable [phone] Rey Tay MD Unavailable Rocky Zepeda DO Unavailable Philip Dumont MD Unavailable [phone] Meredith Carrera PA-C Unavailable [phone] Neil Kent MD Unavailable Juan Pablo Emmanuel MD Unavailable [phone] Audrey Waite PA-C Unavailable [phone] Valery Veronica PA-C Unavailable [phone] Herminia Hatch MD Unavailable Encounter Details Date Type Department Care Team (Late st Contact Info) Description 03/05/2024 [facility] [address] [place] [address] Rebecca Moctezuma Social History Tobacco [...] Score 1 02/07/2024 [facility] - Occupational Stress [...] exercise at this level? 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 Gender Identity Female 03/02/2021 5:45 PM CDT Sexual Orientation Straight 02/28/2020 12 :51 AM CDT documented as of this encounter Plan of Treatment Upcoming Encounters Date Type Department Care Team (Late st Contact Info) Description 10/23/2024 9:30 AM CDT Office Visit [facility] Neurology [address], [address] [place] [address] [place] [address] [place], [place] 5628[address] Johnny Penn MD [address] [place], [place] 9496[address] 11/28/2024 7:45 AM CDT Virtual Visit [facility] [address] 4th [place] [address] Meredith Carrera PA-C [address] [place] [address] documented as of this encounter Visit Diagnoses Not on filedocumented in this encounter Additional Health Concerns Infection Onset Date Last Indicated Resolved Time Rule Out COVID-19 04/09/2024 04/09/2024 04/10/2024 6:48 PM CDT Assessment Noted Time PHQ-9 Depression Total Score: 3 02/07/20 24 9:33 AM CDT documented as of this encounter Care Teams Hvac Technician Residential Relationship Specialty Start Date End Date Esha Grimm PA-C [address] [place] [address] PCP - General Family Medicine 05/04/23 Diana Desir, [facility] [address] [place] [address] Pharmacist Pharmacist 04/17/21 Rain Galaviz PA-C [address] [place] [address] [address] [facility] [address] Physician Financial Planning Analyst Dermatology 04/28/21 Tavia Wyatt MD [address] [place] [address] [address] [place] [address] Dermatology 07/14/21 Erica Farrell APRN MAINTENANCE COORDINATOR 6405 [facility] [address] [place] 7[address]655 Nurse Practitioner Cardiovascular Disease 09/09/21 Rich Barrett MD 516 [facility] [address]A [place], [place] 7476[address] Physician Ophthalmology 01/21/22 Neil Kent MD 500 [place] [address] Dermatology 02/24/22 Diana Desir, [facility] 3033 [place] [address] Assigned MTM Pharmacist 04/07/22 Livan Sharif MD [address] [facility]00 [place] MD 380935 Cardiovascular Disease 05/14/22 Catherine Cm MD [address] [place] [address] [place] 516575 Cardiovascular Disease 07/21/22 Valery Veronica, PA-C 909 [place] [address] Physician Financial Planning Analyst Dermatology 07/21/22 Brea Quinn APRN MAINTENANCE COORDINATOR 500 [place] [address] Nurse Practitioner Dermatology 09/21/22 Brea Quinn APRN MAINTENANCE COORDINATOR 6401 [place] [address] Assigned Surgical Provider 10/09/22 05/01/24 [place] [address] [place] [address] Assigned Musculoskeletal Provider 10/09/22 05/01/24 Alfonso Renteria MD 57[address] [facility] 200 [place] [address] Assigned Neuroscience Provider 04/02/23 Radha Lomeli APRN MAINTENANCE COORDINATOR [address] [place], [place] 674635 Assigned Heart and Vascular Provider 05/28/23 Jelena David OD [address] [place] [address] MD Ophthalmology 06/15/23 Esha Grimm PA-C [address] [place] [phone] Assigned PCP 07/16/23 Valery Veronica PA-C [address] [place] [address] 600505 Physician Financial Planning Analyst Dermatology 09/19/23 Rey Tay MD [address] [place] [address] 628165 Gastroenterology 09/20/23 Rocky Zepeda DO [address] [place] [address] 455725 Physician Gastroenterology 09/20/23 Philip Dumont MD [address] [place] [address] 321495 Physician Ophthalmology 09/22/23 Meredith Carrera PA-C [address] [place] [address] 538810 [phone] Assigned Gastroenterology Provider 11/01/23 Neil Kent MD [address] [address] Dermatology 11/02/23 [place] [address] [address] Neurological Surgery 12/26/23 Audrey Waite PA-C 500 [place] [address] Physician Financial Planning Analyst Dermatology 02/28/24 Valery Veronica PA-C [address]446 [address] [place] [address] Physician Financial Planning Analyst Dermatology 04/10/24 Herminia Hatch MD [facility]5 [place], [place] 429[address] Assigned Rheumatology Provider 07/02/24 documented as of this encounter
--- OUTSIDE RECORDS SUMMARY | 2024-07-22 20:40 | XMS_ITS | Encounter Summary ---
Author Organization [facility] Address [address] [place] [address] Care Team Providers Care Layout Operator Name Role Phone Diana Desir [facility] Unavailable Rain Galaviz PA-C Unavailable [phone] Tavia Wyatt MD Unavailable Erica Farrell APRN DRY KILN LOADER Unavailable Rich Barrett MD Unavailable [phone] Neil Kent MD Unavailable Diana Desir [facility] Unavailable Livan Sharif MD Unavailable Catherine Cm MD Unavailable + Valery Veronica PA-C Unavailable Brea Quinn WAREHOUSE UNLOADER DRY KILN LOADER Unavailable Brea Quinn WAREHOUSE UNLOADER DRY KILN LOADER Unavailable Jose Francisco Johnson MD Unavailable Alfonso Renteria MD Unavailable [phone] Esha Grimm PA-C Primary Care Provider Lomeli, Radha E WAREHOUSE UNLOADER DRY KILN LOADER Unavailable [phone] Jelena David OD Unavailable Esha Grimm PA-C Unavailable [phone] Valery Veronica PA-C Unavailable Rey Tay MD Unavailable Rocky Zepeda DO Unavailable Philip Dumont MD Unavailable [phone] Meredith Carrera PA-C Unavailable [phone] Neil Kent MD Unavailable Juan Pablo Emmanuel MD Unavailable [phone] Audrey Waite PA-C Unavailable [phone] Valery Veronica PA-C Unavailable Herminia Hatch MD Unavailable Encounter Details Date Type Department Care Team (Late st Contact Info) Description 04/24/2024 [facility] Advice [facility] Heart [facility] [address] [facility] [address] [place] [address] Radha Lomeli, WAREHOUSE UNLOADER DRY KILN LOADER [address] [place], [place] 4[address] Social History Tobacco Use Types Packs/Day Years [...] week 03/28/2024 How often do you attend [facility] or [facility] services? 1 to 4 times [...] Answer Date Recorded PHQ-2 Score 1 02/07/2024 [facility] of Occupat [...] exercise at this level? 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 documented in this encounter Plan of Treatment Upcoming Encounters Date Type Department Care Team (Late st Contact Info) Description 10/23/2024 9:30 AM CDT Office Visit [facility] - [address], [address] [place] [address] [place] [address] [place], [place] 156417 Johnny Penn MD [address] [place] [address] 11/28/2024 7:45 AM CDT Virtual Visit [facility] Gastroenterology Clinic [address] 4th [place] [phone] Meredith Carrera PA-C [address] [place] [address] 517895 documented as of this encounter Visit Diagnoses Not on filedocumented in this encounter Additional Health Concerns Assessment Noted Time PHQ-9 Depression Total Score: 3 02/07/20 24 9:33 AM CDT documented as of this encounter Care Teams Layout Operator Relationship Specialty Start Date End Date Esha Grimm PA-C [address] [place] [phone] PCP - General Family Medicine 05/04/23 Diana Desir, [facility] [address] [place] [address] Pharmacist Pharmacist 04/17/21 Rain Galaviz PA-C [address] [place] [address] [address] [place] [address] Physician Grain Origination Specialist Dermatology 04/28/21 Tavia Wyatt MD [address] [place] [address] [address] [place] [address] Dermatology 07/14/21 Erica Farrell APRN DRY KILN LOADER [address] [place], [place] 269[address] Nurse Practitioner Cardiovascular Disease 09/09/21 Rich Barrett MD 516 [facility] 9A [place] [address] Physician Ophthalmology 01/21/22 Neil Kent MD 500 [place], [place] 785295 Dermatology 02/24/22 Diana Desir, [facility] 3033 [place], [place] [address]486 Assigned [place] Pharmacist 04/07/22 Livan Sharif MD [address] [place], [place] [address] Cardiovascular Disease 05/14/22 Catherine Cm MD [address] [place], [place] 7610[address] Cardiovascular Disease 07/21/22 Valery Veronica, PA-C 909 [place], [place] 219085 Physician Grain Origination Specialist Dermatology 07/21/22 Brea Quinn APRN DRY KILN LOADER 500 [place], [place] [address] Nurse Practitioner Dermatology 09/21/22 Brea Quinn APRN DRY KILN LOADER 6401 [facility] [place] [address] Assigned Surgical Provider 10/09/22 05/01/24 [place] [address] [place] [address] Assigned Musculoskeletal Provider 10/09/22 05/01/24 Alfonso Renteria MD [address] [facility] 200 [place], [place] 306166 Assigned Neuroscience Provider 04/02/23 Radha Lomeli APRN DRY KILN LOADER 6405 [facility] [address] [place] [address] Assigned Heart and Vascular Provider 05/28/23 Jelena David OD [address] [facility] [place] [address] Ophthalmology 06/15/23 Esha Grimm PA-C [address] [place] [address] Assigned PCP 07/16/23 Valery Veronica PA-C [address] [place] [address] 438035 Physician Grain Origination Specialist Dermatology 09/19/23 Rey Tay MD [address] [place] [address] 342215 Gastroenterology 09/20/23 Rocky Zepeda DO [address] [place] [address] Physician Gastroenterology 09/20/23 Philip Dumont MD [address] [place] [address] Physician Ophthalmology 09/22/23 Meredith Carrera PA-C [address] [place] [address] Assigned Gastroenterology Provider 11/01/23 Neil Kent MD [address] [place] [address] 346420 MD Dermatology 11/02/23 [place] [address] [address] Neurological Surgery 12/26/23 Audrey Waite PA-C [address] [place] [address] Physician Grain Origination Specialist Dermatology 02/28/24 Valery Veronica PA-C 513192 [place] [address] Physician Grain Origination Specialist Dermatology 04/10/24 Herminia Hatch MD [facility]5 [place], [place] 46[address] Assigned Rheumatology Provider 07/02/24 documented as of this encounter
--- OUTSIDE RECORDS SUMMARY | 2024-07-22 20:40 | XMS_ITS | Encounter Summary ---
Author Organization [place] Address [address] [place] [address] Care Team Providers Care Physical Therapy Manager Name Role Phone Diana Desir [facility] Unavailable Rain Galaviz PAUcheC Unavailable Tavia Wyatt MD Unavailable Erica Farrell NURSE PRACTITIONER HOSPITALIST MOLDING MACHINE SETTER Unavailable Rich Barrett MD Unavailable [phone] Neil Kent MD Unavailable Kendrick Desirelle Stanislav [facility] Unavailable Livan Sharif MD Unavailable Catherine Cm MD Unavailable + Valery Veronica-C Unavailable Brea Quinn NURSE PRACTITIONER HOSPITALIST MOLDING MACHINE SETTER Unavailable [phone] Alfonso Renteria MD Unavailable [phone] Esha GrimmC Primary Care Provider [phone] Radha Lomeli NURSE PRACTITIONER HOSPITALIST MOLDING MACHINE SETTER Unavailable Jelena David OD Unavailable [place], Esha M PA-C Unavailable [phone] Valery Veronica PA-C Unavailable [phone] Rey Tay MD Unavailable Rocky Zepeda DO Unavailable Philip Dumont MD Unavailable [phone] Meredith Carrera PA-C Unavailable [phone] Neil Kent MD Unavailable Juan Pablo Emmanuel MD Unavailable [phone] Audrey Waite PA-C Unavailable [phone] Valery Veroinca PA-C Unavailable [phone] Reason for Visit * Reason Onset Date Comments Call Back 06/20/2024 Encounter Details Date Type Department Care Team (Late st Contact Info) Description 06/20/2024 Telephone [facility] [address] [facility] [address] [place] [address] Radha Lomeli APRN MOLDING MACHINE SETTER [address] [place] [address] Call Back Social History Tobacco Use Types [...] How often do you attend chur or latter-day services? 1 to 4 times [...] Answer Date Recorded PHQ-2 Score 1 02/07/2024 [facility] of Occupat ional [...] exercise at this level? 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 Pt did not answer. Left a detailed voicemail stating pt is okay to exercise. Advised pt to watch for symptoms and ease into exercising. Will send [employer] message as well. Carley ZABALA [facility] IC AND ACCESSORIES ESTIMATOR * Telephone Encounter - Solo Lee - 06/20/2024 12:18 PM CST [facility] Call Center Phone Message May a detailed message be left on voicemail: yes Reason for Call: Other: Per call from patient, she has a history of SVT and on Metoprolol and wondering if she is restricted from exercising. Patient requesting a call back to further discuss it. Action Taken: Other: Cardio Travel Screening: Not Applicable Date of Service: IC AND ACCESSORIES ESTIMATOR documented in this encounter Plan of Treatment Upcoming Encounters Date Type Department Care Team (Late st Contact Info) Description 10/23/2024 9:30 AM CDT Office Visit [facility] Neurology [facility] [address] [facility], [address] [place] [phone] [place] [address] [place], [place] [phone] Johnny Penn MD [address] [place], [place] [address] 11/28/2024 7:45 AM CDT Virtual Visit [facility] [address] [place] [phone] Meredith Carrera PA-C [address] [place] [address] 251655 documented as of this encounter Visit Diagnoses Not on filedocumented in this encounter Additional Health Concerns Assessment Noted Time PHQ-9 Depression Total Score: 3 02/07/20 24 9:33 AM CDT documented as of this encounter Care Teams Physical Therapy Manager Relationship Specialty Start Date End Date Esha Grimm PA-C [address] [place] [address] PCP - General Family Medicine 05/04/23 Diana Desir [facility] [address] [place] [address] Pharmacist Pharmacist 04/17/21 Rain Galaviz PA-C [address] [place] [address] [address] [place] [place] [address] Physician Electrical Instrument Repairer Dermatology 04/28/21 Tavia Wyatt MD [address] [place] [address] [address] [place] [address] Dermatology 07/14/21 Erica Farrell APRN MOLDING MACHINE SETTER [address] [place], [place] [address] Nurse Practitioner Cardiovascular Disease 09/09/21 Rich Barrett MD [address] [place] [address] 113685 Physician Ophthalmology 01/21/22 Neil Kent MD [address] [place], [place] 396835 Dermatology 02/24/22 Diana Desir, [facility] [address] [place] [address] Assigned [place] Pharmacist 04/07/22 Livan Sharif MD [address], [facility] [address] [place], [place] [address] Cardiovascular Disease 05/14/22 Catherine Cm MD [address] [facility] [address] [place], [place] 839[address] Cardiovascular Disease 07/21/22 Valery Veronica, PA-C [address] [place] [address] Physician Electrical Instrument Repairer Dermatology 07/21/22 Brea Quinn APRN MOLDING MACHINE SETTER 500 [place] [address] Nurse Practitioner Dermatology 09/21/22 Alfonso Renetria MD [address] [facility] [address] [place], [place] 251156 Assigned Neuroscience Provider 04/02/23 Radha Lomeli APRN MOLDING MACHINE SETTER [address] [facility] [address] [place], [place] [address] Assigned Heart and Vascular Provider 05/28/23 Jelnea David OD [facility] [facility] [place] [address] Ophthalmology 06/15/23 Esha Grimm PA-C [address] [place] [address] Assigned PCP 07/16/23 Valery Veronica PA-C [address] [place] [address] Physician Electrical Instrument Repairer Dermatology 09/19/23 Rey Tay MD 9 [place], [place] 374785 Gastroenterology 09/20/23 Rocky Zepeda DO 500 [place], [place] 756[address] Physician Gastroenterology 09/20/23 Philip Dumont MD [address] [place], [place] 093075 Physician Ophthalmology 09/22/23 Meredith Carrera PA-C [address] [place] [address] 477085 Assigned Gastroenterology Provider 11/01/23 Neil Kent MD [address] 948300 MD Dermatology 11/02/23 [place] [address] [place] [address] 820027 Neurological Surgery 12/26/23 Audrey Waite PA-C [address] [place], [place] 768225 Physician Electrical Instrument Repairer Dermatology 02/28/24 Valery Veronica PA-C [address] [place] [address] Physician Electrical Instrument Repairer Dermatology 04/10/24 documented as of this encounter
--- OUTSIDE RECORDS SUMMARY | 2024-07-22 20:40 | XMS_ITS | Encounter Summary ---
Author Organization [place] Address [address] [place] [address] Care Team Providers Care Pigment Processor Name Role Phone Diana Desir [facility] Unavailable Rain Galaviz PAUcheC Unavailable [phone] Tavia Wyatt MD Unavailable Erica Farrell BLISTER PACK OPERATOR DIALYSIS CLINICAL MANAGER Unavailable Rich Barrett MD Unavailable [phone] Neil Kent MD Unavailable Kendrick Desirelle Stanislav [facility] Unavailable Livan Sharif MD Unavailable Catherine Cm MD Unavailable + Valery Veronica-C Unavailable Brea Quinn BLISTER PACK OPERATOR DIALYSIS CLINICAL MANAGER Unavailable Alfonso Renteria MD Unavailable [phone] Esha GrimmC Primary Care Provider Radha Lomeli BLISTER PACK OPERATOR DIALYSIS CLINICAL MANAGER Unavailable Jelena David OD Unavailable Esha Grimm PA-C Unavailable [phone] Valery VeronicaC Unavailable [phone] Rey Tay MD Unavailable Rocky Zepeda DO Unavailable Philip Dumont MD Unavailable [phone] Meredith CarreraC Unavailable [phone] Neil Kent MD Unavailable Juan Pablo Emmanuel MD Unavailable [phone] Audrey WaiteC Unavailable [phone] Valery VeronicaC Unavailable [phone] Herminia Hatch MD Unavailable Encounter Details Date Type Department Care Team (Late st Contact Info) Description 06/06/2024 Orders Only [facility] [address] [place] [address] Outside, Provider Social History Tobacco Use Types Packs/Day [...] Answer Date Recorded PHQ-2 Score 1 02/07/2024 [facility] of Occupat ional [facility] - Occupational Stress Questionnaire Answer Date [...] PM CDT Legal Sex Female 4:13 AM IS CONSULTANT Gender Identity Female 03/02/2021 5:45 PM CDT Sexual Orientation Straight 02/28/2020 12 :51 AM CDT documented as of this encounter Plan of Treatment Upcoming Encounters Date Type Department Care Team (Late st Contact Info) Description 10/23/2024 9:30 AM CDT Office Visit [facility] Neurology [address] [place] [address] [place] [address] [place] [address] [phone] Johnny Penn MD [address] [place], [place] [address]645 11/28/2024 7:45 AM CDT Virtual Visit [facility] G[facility]ology [facility] [address] [place] [address] Meredith Carrera PA-C [address] [place] [address] documented as of this encounter Procedures Procedure Name Priority Date/Time Associated Diagnosis Comments HLA RESULT REPORT 06/06/2024 2:04 PM IS CONSULTANT documented in this encounter Results * HLA Result Report (06/06/2024 2:04 PM IS CONSULTANT) us Provider Outside LAB - IMMUNOLOGY ORDERABLES Fin al Result documented in this encounter Visit Diagnoses Not on filedocumented in this encounter Additional Health Concerns Assessment Noted Time PHQ-9 Depression Total Score: 3 02/07/20 24 9:33 AM CDT documented as of this encounter Care Teams Pigment Processor Relationship Specialty Start Date End Date Esha Grimm PA-C [address] [place] [address] PCP - General Family Medicine 05/04/23 Diana Desir, [facility] [address] [place], [place] 2722[address] Pharmacist Pharmacist 04/17/21 Rain Galaviz PA-C [address] [place] [address] [address] [place] [address] Dermatology 04/28/21 Tavia Wyatt MD [address] [place] [address] [address] [place], [place] [id number] Dermatology 07/14/21 Erica Farrell APRN DIALYSIS CLINICAL MANAGER [address] [facility] [address] [place], [place] 6[address] Nurse Practitioner Cardiovascular Disease 09/09/21 Rich Barrett MD [address] [facility] [address] [place] [address] Physician Ophthalmology 01/21/22 Neil Kent MD 500 [place], [place] 765555 Dermatology 02/24/22 Diana Desir, [facility] 30[address] [place], [place] 464936 Assigned MTM Pharmacist 04/07/22 Livan Sharif MD [address], [address] [place] 740875 Cardiovascular Disease 05/14/22 Catherine Cm MD [address] [place] 206385 Cardiovascular Disease 07/21/22 Valery Veronica, PA-C [address] [place], [place] 368555 Physician [address] Marker Dermatology 07/21/22 Brea Quinn APRN DIALYSIS CLINICAL MANAGER 500 [place], [place] 929025 Nurse Practitioner Dermatology 09/21/22 Alfonso Renteria MD [address] [facility] 200 [place], [place] 4017[address] Assigned Neuroscience Provider 04/02/23 Radha Lomeli APRN DIALYSIS CLINICAL MANAGER [address] [place] 6[address] Assigned Heart and Vascular Provider 05/28/23 Jelena David OD [address] [place] [address] MD Ophthalmology 06/15/23 Esha Grimm PA-C [address] [place] [address] Assigned PCP 07/16/23 Valery Veronica PA-C [address] [place] [address]er Dermatology 09/19/23 Rey Tay MD [address] [place] [address] MD Gastroenterology 09/20/23 Rocky Zepeda DO [address] [place] [address] Physician Gastroenterology 09/20/23 Philip Dumont MD [address] [place] [address] 676255 Physician Ophthalmology 09/22/23 Meredith Carrera PA-C [address] [place] [address] 710185 Assigned Gastroenterology Provider 11/01/23 Neil Kent MD [address] 898170 Dermatology 11/02/23 [place] [address] [place] [address] Neurological Surgery 12/26/23 Audrey Waite PA-C [address] [place] [address] Dermatology 02/28/24 Valery Veronica PA-C 246915 [address] [place] [address] Dermatology 04/10/24 Herminia Hatch MD [address] [place] [address] [id number] Assigned Rheumatology Provider 07/02/24 documented as of this encounter
--- OUTSIDE RECORDS SUMMARY | 2024-07-22 20:41 | XMS_ITS | Encounter Summary ---
Author Organization [place] Address [address] [place] [address] Care Team Providers Care Rand Butting Machine Operator Name Role Phone Diana Desir [facility] Unavailable [phone] Rain Galaviz PA-C Unavailable Tavia Wyatt MD Unavailable Erica Farrell APRN WATER SUPPLY TECHNICIAN Unavailable Rich Barrett MD Unavailable [phone] Neil Kent MD Unavailable Diana Desir [facility] Unavailable [phone] Livan Sharif MD Unavailable Catherine Cm MD Unavailable + Valery Veronica PA-C Unavailable Brea Quinn ATTORNEY LAWYER WATER SUPPLY TECHNICIAN Unavailable [phone] Brea Quinn ATTORNEY LAWYER WATER SUPPLY TECHNICIAN Unavailable Jose Francisco Johnson MD Unavailable Alfonso Renteria MD Unavailable [phone] Esha Grimm PA-C Primary Care Provider Lomeli, Radha E ATTORNEY LAWYER WATER SUPPLY TECHNICIAN Unavailable [phone] Jelena David OD Unavailable Esha Grimm PA-C Unavailable [phone] Valery Veronica PA-C Unavailable [phone] Rey Tay MD Unavailable Rocky Zepeda DO Unavailable Philip Dumont MD Unavailable [phone] Meredith Carrera PA-C Unavailable [phone] Neil Kent MD Unavailable Juan Pablo Emmanuel MD Unavailable [phone] Audrey Waite PA-C Unavailable [phone] Valery Veronica PA-C Unavailable Herminia Hatch MD Unavailable Encounter Details Date Type Department Care Team (Late st Contact Info) Description 11/21/2023 [facility] Advice [facility] G[facility]ology Clinic [address] [place] [address] Sofia Alcantar Social History Tobacco [...] [facility] Health - Occupational Stress Questionnaire Answer [...] exercise at this level? 30 min 03/10/2023 [place] Depression Scale Answer Date Recorded [place] Depression Score 5 01/14/2021 Last EPDS Self [...] PM CDT Legal Sex Female 4:13 AM STEWARDESS SUPERVISOR Gender Identity Female 03/02/2021 5:45 PM CDT Sexual Orientation Straight 02/28/2020 12 :51 AM CDT documented as of this encounter Plan of Treatment Upcoming Encounters Date Type Department Care Team (Late st Contact Info) Description 10/23/2024 9:30 AM CDT Office Visit [facility] Neurology [address], [address] [place] [address] [place] [address] [place] [address] 323857 Johnny Penn MD 14[address] [place], [place] 730[address] 11/28/2024 7:45 AM CDT Virtual Visit [facility] Gastroenterology Clinic [address] 4th [place] [address] Meredith Carrera PA-C [address] [place] [address] documented as of this encounter Visit Diagnoses Not on filedocumented in this encounter Additional Health Concerns Infection Onset Date Last Indicated Resolved Time Rule Out COVID-19 12/26/2023 12/26/2023 12/26/2023 9:50 AM CDT Rule Out COVID-19 04/09/2024 04/09/2024 04/10/2024 6:48 PM CDT Assessment Noted Time PHQ-9 Depression Total Score: 4 06/20/20 8:40 AM STEWARDESS SUPERVISOR documented as of this encounter Care Teams Rand Butting Machine Operator Relationship Specialty Start Date End Date Esha Grimm PA-C [address] [place] [address] PCP - General Family Medicine 05/04/23 Diana Desir, [facility] [address] [facility] [place] [address] Pharmacist Pharmacist 04/17/21 Rain Galaviz PA-C [address] [place] [address] [address] [place] [address] Physician Customer Service Trainer Dermatology 04/28/21 Tavia Wyatt MD [address] [place] [address] [address] [place] [address] Dermatology 07/14/21 Erica Farrell APRN WATER SUPPLY TECHNICIAN [address] [facility] [place] [address] Nurse Practitioner Cardiovascular Disease 09/09/21 Rich Barrett MD 6 [facility] 9A [place] [address] Physician Ophthalmology 01/21/22 Neil Kent MD 500 [place], [place] 426515 Dermatology 02/24/22 Diana Desir, [facility] 3033 [place] [address] Assigned MTM Pharmacist 04/07/22 Livan Sharif MD [address] [facility]00 [place] [address]85 Cardiovascular Disease 05/14/22 Catherine Cm MD [address] [place] [address] Cardiovascular Disease 07/21/22 Valery Veronica, PA-C 909 [place], [place] 195215 Physician Customer Service Trainer Dermatology 07/21/22 Brea Quinn APRN WATER SUPPLY TECHNICIAN 500 [place] [address] Nurse Practitioner Dermatology 09/21/22 Brea Quinn APRN WATER SUPPLY TECHNICIAN 6401 [facility] [place] 155582 Assigned Surgical Provider 10/09/22 05/01/24 [place] [address] [place] [address] Assigned Musculoskeletal Provider 10/09/22 05/01/24 Alfonso Renteria MD [address] [facility] [address] [place] [address] Assigned Neuroscience Provider 04/02/23 Radha Lomeli APRN WATER SUPPLY TECHNICIAN 6405 [facility] [address] [place] [address] Assigned Heart and Vascular Provider 05/28/23 Jelena David OD [address] [facility] [place] [address] Ophthalmology 06/15/23 Esha Grimm PA-C [address] [place] [address] Assigned PCP 07/16/23 Valery Veronica PA-C [address] [place] [address] 650205 Physician Customer Service Trainer Dermatology 09/19/23 Rey Tay MD 9 [place], [place] 607735 Gastroenterology 09/20/23 Rocky Zepeda DO [address] [place] [address] 728735 Physician Gastroenterology 09/20/23 Philip Dumont MD [address] [place] [address] 488615 Physician Ophthalmology 09/22/23 Meredith Carrera PA-C 909 [place] [address] Assigned Gastroenterology Provider 11/01/23 Neil Kent MD [address] [place] [address] Dermatology 11/02/23 [place] [address] [address] Neurological Surgery 12/26/23 Audrey Waite PA-C 500 [place] [address] Physician Customer Service Trainer Dermatology 02/28/24 Valery Veronica PA-C [address] [place] [address] Physician Customer Service Trainer Dermatology 04/10/24 Herminia Hatch MD [facility]5 [place] [address] Assigned Rheumatology Provider 07/02/24 documented as of this encounter
--- OUTSIDE RECORDS SUMMARY | 2024-07-22 20:41 | XMS_ITS | Encounter Summary ---
Author Organization [place] Address [address] [place] [address] Care Team Providers Care Split Leather Department Supervisor Name Role Phone Diana Desir [facility] Unavailable Rain Galaviz PA-C Unavailable Tavia Wyatt MD Unavailable Erica Farrell APRN RADIATOR SPECIALIST Unavailable Rich Barrett MD Unavailable [phone] Neil Kent MD Unavailable Diana Desir [facility] Unavailable Livan Sharif MD Unavailable Catherine Cm MD Unavailable + Valery Veronica PA-C Unavailable Brea Quinn SPECIAL EDUCATION ASSOCIATE RADIATOR SPECIALIST Unavailable Brea Quinn SPECIAL EDUCATION ASSOCIATE RADIATOR SPECIALIST Unavailable [phone] Jose Francisco Johnson MD Unavailable Alfonso Renteria MD Unavailable [phone] Esha Grimm PA-C Primary Care Provider Radha Lomeli APRN RADIATOR SPECIALIST Unavailable Jelena David OD Unavailable Pao Joseph RN Unavailable Unavailable Esha Grimm PA-C Unavailable [phone] Valery Veronica PA-C Unavailable [phone] Rey Tay MD Unavailable Rocky Zepeda DO Unavailable Philip Dumont MD Unavailable [phone] Meredith Carrera PA-C Unavailable [phone] Neil Kent MD Unavailable Juan Pablo Emmanuel MD Unavailable [phone] Audrey Waite PA-C Unavailable [phone] Valery Veronica PA-C Unavailable Herminia Hatch MD Unavailable Encounter Details Date Type Department Care Team (Late st Contact Info) Description 10/24/2023 [facility] Medical Advice [facility] [address] [address] Kenneth Denson Social History Tobacco [...] do you attend [facility] or restorationist services? 1 to 4 times [...] Answer Date Recorded PHQ-2 Score 0 10/25/2023 [facility] [place] of Occupat ional Health - Occupational Stress [...] exercise at this level? 30 min 03/10/2023 [place] Depression Scale Answer Date Recorded [place] Depression Score 5 01/14/2021 Last EPDS [...] PM CDT Legal Sex Female 4:13 AM CARDIOVASCULAR SPECIALIST Gender Identity Female 03/02/2021 5:45 PM CDT Sexual Orientation Straight 02/28/2020 12 :51 AM CDT documented as of this encounter Plan of Treatment Upcoming Encounters Date Type Department Care Team (Late st Contact Info) Description 10/23/2024 9:30 AM CDT Office Visit [facility] Neurology [address], [address] [place] [address] [place] [address] [place] 29[address]37 Johnny Penn MD [address] [place] [address] 11/28/2024 7:45 AM CDT Virtual Visit [facility] [address] 4th [place] [address] Meredith Carrera PAUcheC 909 [place] [address] documented as of this encounter Visit Diagnoses Not on filedocumented in this encounter Additional Health Concerns Infection Onset Date Last Indicated Resolved Time Rule Out COVID-19 12/26/2023 12/26/2023 12/26/2023 9:50 AM CDT Rule Out COVID-19 04/09/2024 04/09/2024 04/10/2024 6:48 PM CDT Assessment Noted Time PHQ-9 Depression Total Score: 4 06/20/20 8:40 AM CARDIOVASCULAR SPECIALIST documented as of this encounter Care Teams Split Leather Department Supervisor Relationship Specialty Start Date End Date Esha Grimm PA-C [address] [place] [address] PCP - General Family Medicine 05/04/23 Diana Desir, [facility] [address] [place] [address] Pharmacist Pharmacist 04/17/21 Rain Galaviz PA-C [address] [place] [address] [address] [place] [address] Physician Motorboat Mechanic Inboard Dermatology 04/28/21 Tavia Wyatt MD [address] [place] [address] [address] [place] [address] Dermatology 07/14/21 Erica Farrell APRN RADIATOR SPECIALIST [address] [facility] [address] [place] [address] Nurse Practitioner Cardiovascular Disease 09/09/21 Rich Barrett MD [address], [place] [address] Physician Ophthalmology 01/21/22 Neil Kent MD 500 [place], [place] 231805 Dermatology 02/24/22 Diana Desir, [facility] [address] [place] [address] Assigned MTM Pharmacist 04/07/22 Livan Sharif MD [address] [address] Cardiovascular Disease 05/14/22 Catherine Cm MD [address] 741505 Cardiovascular Disease 07/21/22 Vaelry Veronica, PA-C 909 [place], [place] [address] Physician Motorboat Mechanic Inboard Dermatology 07/21/22 Brea Quinn APRN RADIATOR SPECIALIST 500 [place] [address] Nurse Practitioner Dermatology 09/21/22 Brea Quinn APRN RADIATOR SPECIALIST [address] [place] [address] [place] 153622 Assigned Surgical Provider 10/09/22 05/01/24 [place] [address] 688414 Assigned Musculoskeletal Provider 10/09/22 05/01/24 Alfonso Renteria MD [address] [place] [address] Assigned Neuroscience Provider 04/02/23 Radha Lomeli APRN RADIATOR SPECIALIST [address] [facility] [address] [place] [address] Assigned Heart and Vascular Provider 05/28/23 Jelena David OD [address] [place] [address] Ophthalmology 06/15/23 Pao Joseph, VJ Personal Advocate & Liaison (PAL) Nurse 08/01/23 11/07/23 Esha Grimm PA-C [address] [place] [address] Assigned PCP 07/16/23 Valery Veronica PA-C 9 [place], [place] 1[address]35 Physician Motorboat Mechanic Inboard Dermatology 09/19/23 Rey Tay MD [address] [place] [address] 816415 Gastroenterology 09/20/23 Rocky Zepeda DO [address] [place] [address] 816615 Physician Gastroenterology 09/20/23 Philip Dumont MD [address] [place] [address] Physician Ophthalmology 09/22/23 Meredith Carrera PA-C [address] [place] [address] Assigned Gastroenterology Provider 11/01/23 Neil Kent MD [address] [address] Dermatology 11/02/23 [place] [address] [address] Neurological Surgery 12/26/23 Audrey Waite PA-C [address] [place] [address] Physician Motorboat Mechanic Inboard Dermatology 02/28/24 Valery Veronica PA-C [address] [place], [place] [address] Physician Motorboat Mechanic Inboard Dermatology 04/10/24 Herminia Hatch MD [facility]5 [place], [place] [address] Assigned Rheumatology Provider 07/02/24 documented as of this encounter
--- OUTSIDE RECORDS SUMMARY | 2024-07-22 20:41 | XMS_ITS | Encounter Summary ---
Author Organization [place] Address [address] [place] [address] Care Team Providers Care Pillow Cleaner Name Role Phone Diana Desir [facility] Unavailable Rain Galaviz PA-C Unavailable Tavia Wyatt MD Unavailable Erica Farrell APRN SLIPMAN Unavailable Rich Barrett MD Unavailable [phone] Neil Kent MD Unavailable Diana Desir [facility] Unavailable Livan Sharif MD Unavailable Catherine Cm MD Unavailable + Valery Veronica PA-C Unavailable Brea Quinn CRIME VICTIM SPECIALIST SLIPMAN Unavailable Brea Quinn CRIME VICTIM SPECIALIST SLIPMAN Unavailable Jose Francisco Johnson MD Unavailable Alfonso Renteria MD Unavailable [phone] Esha Grimm PA-C Primary Care Provider Lomeli, Radha E CRIME VICTIM SPECIALIST SLIPMAN Unavailable [phone] Jelena David OD Unavailable Esha Grimm PA-C Unavailable [phone] Valery Veronica PA-C Unavailable [phone] Rey Tay MD Unavailable Rocky Zepeda DO Unavailable Philip Dumont MD Unavailable [phone] Meredith Carrera PA-C Unavailable Neil Kent MD Unavailable Juan Pablo Emmanuel MD Unavailable [phone] Audrey Waite PA-C Unavailable [phone] Valery Veronica PA-C Unavailable Herminia Hatch MD Unavailable Reason for Visit * Reason Onset Date Comments Call Back 12/21/2023 Schedule appt to brandy Encounter Details Date Type Department Care Team (Late st Contact Info) Description 12/21/2023 [facility] Heart [facility] 6[address] [facility] [address] [place] [address] Livan Sharif MD [address] [facility] [address] [place] [address] Call Back (Schedule appt tomorrow [...] Date Recorded PHQ-2 Score 0 10/25/2023 [facility] - Occupational Stress Questionnaire Answer Date [...] exercise at this level? 30 min 03/10/2023 [place] Depression Scale Answer Date Recorded [place] Depression Score 5 01/14/2021 Last EPDS Self [...] PM CDT Legal Sex Female 4:13 AM HEADER BOSS Gender Identity Female 03/02/2021 5:45 PM CDT [...] wait list with Dr. Sharif per msg. Karen * Telephone Encounter - Carley Myles RN [...] on wait list for . Routing to project eng. Carley ZABALA [facility] * Telephone Encounter - Sandra Whiting - 12/21/2023 12:34 PM CDT [facility] Call Center Phone Message May [...] Description 10/23/2024 9:30 AM CDT Office Visit [facility] Neurology Clinics - [address], [address] [place] [address] [place] [address] [place], [place] 29[address] Johnny Penn MD [address] [facility] [place] [address] 11/28/2024 7:45 AM CDT Virtual Visit [facility] Gastroenterology Clinic [place] 583079 [facility] [address] 4th [place] [address] Meredith Carrera PA-C 909 [place] [address] documented as of this encounter Visit Diagnoses Not on filedocumented in this encounter Additional Health Concerns Infection Onset Date Last Indicated Resolved Time Rule Out COVID-19 12/26/2023 12/26/2023 12/26/2023 9:50 AM CDT Rule Out COVID-19 04/09/2024 04/09/2024 04/10/2024 6:48 PM CDT Assessment Noted Time PHQ-9 Depression Total Score: 4 06/20/20 8:40 AM HEADER BOSS documented as of this encounter Care Teams Pillow Cleaner Relationship Specialty Start Date End Date Esha Grimm PA-C [address] [place] [address] PCP - General Family Medicine 05/04/23 Diana Desir, [facility] [address] [place] [address] Pharmacist Pharmacist 04/17/21 Rain Galaviz PA-C [address] [place] [address] [address] [place] [address] Physician Hat Designer Dermatology 04/28/21 Tavia Wyatt MD [address] [place] [address] [address] [place] [address] Dermatology 07/14/21 Erica Farrell APRN SLIPMAN [address] [facility] [address] [place] [address] Nurse Practitioner Cardiovascular Disease 09/09/21 Rich Barrett MD [address] [facility] [place], [place] [address] Physician Ophthalmology 01/21/22 Neil Kent MD 500 [place] [address] Dermatology 02/24/22 [facility] [address] [place] [address] Assigned [place] Pharmacist 04/07/22 Livan Sharif MD [address] [address] Cardiovascular Disease 05/14/22 Catherine Cm MD [address] [facility] [address] 940355 Cardiovascular Disease 07/21/22 Valery Veronica, PAUcheC 909 [place] [address] Physician Hat Designer Dermatology 07/21/22 Brea Quinn APRN SLIPMAN 500 [place] [address] Nurse Practitioner Dermatology 09/21/22 Brea Quinn APRN SLIPMAN [address] [place] [address] [place] [address] Assigned Surgical Provider 10/09/22 05/01/24 [place] [address] [place] [address] Assigned Musculoskeletal Provider 10/09/22 05/01/24 Alfonso Renteria MD [address] [facility] 200 [place] [address] Assigned Neuroscience Provider 04/02/23 Radha Lomeli APRN SLIPMAN [address] [facility] [address] [place] [address] Assigned Heart and Vascular Provider 05/28/23 Jel[place] David OD [address] [place] [address] MD Ophthalmology 06/15/23 Esha Grimm PA-C [address] [place] [address] Assigned PCP 07/16/23 Valery Veronica PA-C [address] [place] [address] 401945 Physician Hat Designer Dermatology 09/19/23 Rey Tay MD [address] [place] [address] Gastroenterology 09/20/23 Rocky Zepeda DO [address] [place] [address]015 Physician Gastroenterology 09/20/23 Philip Dumont MD [address] [place] [address] 332435 Physician Ophthalmology 09/22/23 Meredith Carrera PA-C 9[address] [place], [place] 270265 Assigned Gastroenterology Provider 11/01/23 Neil Kent MD [address] [address] Dermatology 11/02/23 [place] [address] 722147 Neurological Surgery 12/26/23 Audrey Waite PA-C 500 [place] [address] Physician Hat Designer Dermatology 02/28/24 Valery Veronica PA-C [address] [place] [address] Physician Hat Designer Dermatology 04/10/24 Herminia Hatch MD 1875 [place], [place] 18[address] Assigned Rheumatology Provider 07/02/24 documented as of this encounter
--- OUTSIDE RECORDS SUMMARY | 2024-07-22 20:41 | XMS_ITS | Encounter Summary ---
Author Organization [employer] [facility] Address [address] [place] [address] Care Team Providers Care Knitting Inspector Name Role Phone Diana Desir [facility] Unavailable Rain Galaviz PA-C Unavailable Tavia Wyatt MD Unavailable Erica Farrell APRN MOTOR VEHICLE EMISSIONS INSPECTOR Unavailable Rich Barrett MD Unavailable [phone] Neil Kent MD Unavailable Diana Desir [facility] Unavailable Livan Sharif MD Unavailable Catherine Cm MD Unavailable + Valery Veronica PA-C Unavailable Brea Quinn RAISER HELPER MOTOR VEHICLE EMISSIONS INSPECTOR Unavailable Brea Quinn RAISER HELPER MOTOR VEHICLE EMISSIONS INSPECTOR Unavailable [phone] Jose Francisco Johnson MD Unavailable Alfonso Renteria MD Unavailable [phone] Esha Grimm PA-C Primary Care Provider Radha Lomeli APRN MOTOR VEHICLE EMISSIONS INSPECTOR Unavailable Jelena David OD Unavailable [phone] Pao Joseph RN Unavailable Unavailable Esha Grimm PA-C Unavailable [phone] Valery Veronica PA-C Unavailable [phone] Rey Tay MD Unavailable Rocky Zepeda DO Unavailable Philip Dumont MD Unavailable [phone] Meredith Carrera PA-C Unavailable [phone] Neil Kent MD Unavailable Juan Pablo Emmanuel MD Unavailable [phone] Audrey Waite PA-C Unavailable [phone] Valery Veronica PA-C Unavailable Herminia Hatch MD Unavailable Encounter Details Date Type Department Care Team (Late st Contact Info) Description 09/20/2023 [facility] Medical Advice [facility] Gastroenterology Clinic [address] [address] Jeffery Vieira, RN Social History [...] PHQ-2 Score 0 06/20/2023 [facility] [place] of Occupat ional Health - Occupational Stress [...] exercise at this level? 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 Gender Identity Female 03/02/2021 5:45 PM CDT Sexual Orientation Straight 02/28/2020 12 :51 AM CDT documented as of this encounter Plan of Treatment Upcoming Encounters Date Type Department Care Team (Late st Contact Info) Description 10/23/2024 9:30 AM CDT Office Visit [facility] Neurology [address] [place] [address] [place] [address] [place], [place] 87[address] Johnny Penn MD [address] [place] [address] 11/28/2024 7:45 AM CDT Virtual Visit [facility] Gastroenterology Clinic [address] 4th [place] [address] Meredith Carrera PAUcheC [address] [place] [address] documented as of this encounter Visit Diagnoses Not on filedocumented in this encounter Additional Health Concerns Infection Onset Date Last Indicated Resolved Time Rule Out COVID-19 12/26/2023 12/26/2023 12/26/2023 9:50 AM CDT Rule Out COVID-19 04/09/2024 04/09/2024 04/10/2024 6:48 PM CDT Assessment Noted Time PHQ-9 Depression Total Score: 4 06/20/20 23 8:40 AM SHEETER MACHINE OPERATOR documented as of this encounter Care Teams Knitting Inspector Relationship Specialty Start Date End Date Esha Grimm PA-C [address] [place] [address] PCP - General Family Medicine 05/04/23 Diana Desir, [facility] [place] [address] Pharmacist Pharmacist 04/17/21 Rain Galaviz PA-C [address] [place] [address] [address] [place] [address] Physician Oyster Buyer Dermatology 04/28/21 Tavia Wyatt MD [address] [place] [address] [address] [place] [address] Dermatology 07/14/21 Erica Farrell APRN MOTOR VEHICLE EMISSIONS INSPECTOR 6405 [facility] [address] [place] [address] Nurse Practitioner Cardiovascular Disease 09/09/21 Rich Barrett MD [address] [place] [address] [address] [place], [place] [address] Physician Ophthalmology 01/21/22 Neil Kent MD 500 [place] [address] Dermatology 02/24/22 Diana Desir, [facility] 30[address] [place] [address] Assigned MTM Pharmacist 04/07/22 Livan Sharif MD [address] 6618[address] Cardiovascular Disease 05/14/22 Catherine Cm MD [address] 727485 Cardiovascular Disease 07/21/22 Valery Veronica, PAUcheC 9 [place], [place] [address] Physician Oyster Buyer Dermatology 07/21/22 Brea Quinn APRN MOTOR VEHICLE EMISSIONS INSPECTOR 500 [place] [address] Nurse Practitioner Dermatology 09/21/22 Brea Quinn APRN MOTOR VEHICLE EMISSIONS INSPECTOR [address] [place], [place] [address] 469172 Assigned Surgical Provider 10/09/22 05/01/24 [place] [address] [place] [address] Assigned Musculoskeletal Provider 10/09/22 05/01/24 Alfonso Renteria MD [address] [facility] [address] [place] [address] Assigned Neuroscience Provider 04/02/23 Radha Lomeli APRN MOTOR VEHICLE EMISSIONS INSPECTOR 6405 [facility] [address] [place] [address] Assigned Heart and Vascular Provider 05/28/23 Jelena David OD 3305 [facility] [place] [address] Ophthalmology 06/15/23 Pao Joseph, VJ Personal Advocate & Liaison (PAL) Nurse 08/01/23 11/07/23 Esha Grimm PA-C [address] [place] [address] Assigned PCP 07/16/23 Valery Veronica PA-C 9 [place], [place] [address] Physician Oyster Buyer Dermatology 09/19/23 Rey Tay MD [address] [place] [address] Gastroenterology 09/20/23 Rocky Zepeda DO [address] [place] [address] Physician Gastroenterology 09/20/23 Philip Dumont MD [address] [place] [address] Physician Ophthalmology 09/22/23 Meredith Carrera PA-C [address] [place] [address] Assigned Gastroenterology Provider 11/01/23 Neil Kent MD [address] [address] Dermatology 11/02/23 [place] [address] [address] Neurological Surgery 12/26/23 Audrey Waite PA-C [address] [place] [address] Physician Oyster Buyer Dermatology 02/28/24 Valery Veronica PA-C 544616 [address], [place] [address] Physician Oyster Buyer Dermatology 04/10/24 Herminia Hatch MD [facility]5 [place], [place] 20[address] Assigned Rheumatology Provider 07/02/24 documented as of this encounter
--- OUTSIDE RECORDS SUMMARY | 2024-07-22 20:41 | XMS_ITS | Encounter Summary ---
Author Organization [place] Address [address] [place] [address] Care Team Providers Care Expert Medical Writer Name Role Phone Diana Desir [facility] Unavailable Rain Galaviz PA-C Unavailable [phone] Tavia Wyatt MD Unavailable Erica Farrell APRN PUMP ERECTOR HELPER Unavailable Rich Barrett MD Unavailable [phone] Neil Kent MD Unavailable Diana Desir [facility] Unavailable Livan Sharif MD Unavailable Catherine Cm MD Unavailable + Valery Veronica PA-C Unavailable Brea Quinn PLANT MANAGER PUMP ERECTOR HELPER Unavailable Brea Quinn PLANT MANAGER PUMP ERECTOR HELPER Unavailable [phone] Jose Francisco Johnson MD Unavailable Alfonso Renteria MD Unavailable [phone] Esha Grimm PA-C Primary Care Provider Radha Lomeli APRN PUMP ERECTOR HELPER Unavailable Jelena David OD Unavailable Pao Joseph RN Unavailable Unavailable Esha Grimm PA-C Unavailable [phone] Valery Veronica PA-C Unavailable Rey Tay MD Unavailable Rocky Zepeda DO Unavailable Philip Dumont MD Unavailable [phone] Meredith Carrera PA-C Unavailable Neil Kent MD Unavailable Juan Pablo Emmanuel MD Unavailable Audrey Waite PA-C Unavailable [phone] Valery Veronica PA-C Unavailable Herminia Hatch MD Unavailable Encounter Details Date Type Department Care Team (Late st Contact Info) Description 10/25/2023 [facility] Gastro[facility]ology Clinic [address] [address] [place] [place], RD [address] [place] [address] Social History Tobacco Use Types [...] you attend [facility] or judaism services? 1 to 4 [...] Answer Date Recorded PHQ-2 Score 0 10/25/2023 [facility] - [...] exercise at this level? 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 Gender Identity Female 03/02/2021 5:45 PM CDT Sexual Orientation Straight 02/28/2020 12 :51 AM CDT documented as of this encounter Plan of Treatment Upcoming Encounters Date Type Department Care Team (Late st Contact Info) Description 10/23/2024 9:30 AM CDT Office Visit [facility] Neurology [address], [address] [place] [address] [place] [address] [place] [address] Johnny Penn MD [address] [place] [id number] 11/28/2024 7:45 AM CDT Virtual Visit [facility] Gastroenterology Clinic [address] 4th [place] [phone] Meredith Carrera PA-C [address] [place] [address] documented as of this encounter Visit Diagnoses Not on filedocumented in this encounter Additional Health Concerns Infection Onset Date Last Indicated Resolved Time Rule Out COVID-19 12/26/2023 12/26/2023 12/26/2023 9:50 AM CDT Rule Out COVID-19 04/09/2024 04/09/2024 04/10/2024 6:48 PM CDT Assessment Noted Time PHQ-9 Depression Total Score: 4 06/20/20 23 8:40 AM SMOKE AND FLAME SPECIALIST documented as of this encounter Care Teams Expert Medical Writer Relationship Specialty Start Date End Date Esha Grimm PA-C [address] [place] [phone] PCP - General Family Medicine 05/04/23 Diana Desir, [facility] [address] [place] [place], [place] 1267[address] Pharmacist Pharmacist 04/17/21 Rain Galaviz PA-C [address] [place] [address] [address] [facility] [place] [address] Physician Local Superintendent Dermatology 04/28/21 Tavia Wyatt MD [address] [place] [address] [address] [place] [phone] Dermatology 07/14/21 Erica Farrell APRN PUMP ERECTOR HELPER 6405 [facility] [address] [place] [address] Nurse Practitioner Cardiovascular Disease 09/09/21 Rich Barertt MD [address] [facility] 9A [place], [place] 4207[address] Physician Ophthalmology 01/21/22 Neil Kent MD 500 [place], [place] 0417[address] Dermatology 02/24/22 Diana Desir, [facility] 3033 [place], [place] 912726 Assigned [place] Pharmacist 04/07/22 Livan Sharif MD [address] [facility] [address] [place] [id number] Cardiovascular Disease 05/14/22 Catherine Cm MD 6405 [facility] [address] [place] 2160000 [place] [address] Cardiovascular Disease 07/21/22 Valery Veronica, PA-C 909 [place], [place] 396295 Physician Local Superintendent Dermatology 07/21/22 Brea Quinn APRN PUMP ERECTOR HELPER [address] [place], [place] 886095 Nurse Practitioner Dermatology 09/21/22 Brea Quinn APRN PUMP ERECTOR HELPER 6401 [facility] [place] 890582 Assigned Surgical Provider 10/09/22 05/01/24 [place] [address] [address] [facility] [address] [place] [address] Assigned Musculoskeletal Provider 10/09/22 05/01/24 Alfonso Renteria MD [address] [facility] 200 [place], [place] 350606 Assigned Neuroscience Provider 04/02/23 Radha Lomeli, ARLENE PUMP ERECTOR HELPER 6405 [facility] [address] [place], [place] 447695 Assigned Heart and Vascular Provider 05/28/23 Jelena David OD [address] [facility] [place] [address] Ophthalmology 06/15/23 Pao Joseph, VJ Personal Advocate & Liaison (PAL) Nurse 08/01/23 11/07/23 Esha Grimm PA-C [address] [place] [phone] Assigned PCP 07/16/23 Valery Veronica PA-C [address] [place] [address] 209545 Physician Local Superintendent Dermatology 09/19/23 Rey Tay MD [address] [place] [address] 189355 Gastroenterology 09/20/23 Rocky Zepeda DO [address] [place] [address] 150135 Physician Gastroenterology 09/20/23 Philip Dumont MD 516 [place] [address] Physician Ophthalmology 09/22/23 Meredith Carrera PA-C [address] [place] [address] 916565 Assigned Gastroenterology Provider 11/01/23 Neil Kent MD [address] 395280 MD Dermatology 11/02/23 [place] [address] 740427 Neurological Surgery 12/26/23 Audrey Waite PA-C 500 [place], [place] 368925 Physician Local Superintendent Dermatology 02/28/24 Valery Veronica PA-C 294240 99 [place] [address] Physician Local Superintendent Dermatology 04/10/24 Herminia Hatch MD [facility]5 [place] [address] Assigned Rheumatology Provider 07/02/24 documented as of this encounter
--- OUTSIDE RECORDS SUMMARY | 2024-07-22 20:41 | XMS_ITS | Encounter Summary ---
Author Organization [place] Address [address] [place] [address] Care Team Providers Care Patent Agent Name Role Phone Diana Desir [facility] Unavailable Rain Galaviz PA-C Unavailable Tavia Wyatt MD Unavailable Erica Farrell APRN GLASS SMOOTHER Unavailable Rich Barrett MD Unavailable [phone] Neil Kent MD Unavailable Diana Desir [facility] Unavailable Livan Sharif MD Unavailable Catherine Cm MD Unavailable + Valery Veronica PA-C Unavailable Brea Quinn SUPERVISOR RESEARCH SHOP GLASS SMOOTHER Unavailable Brea Quinn SUPERVISOR RESEARCH SHOP GLASS SMOOTHER Unavailable Jose Francisco Johnson MD Unavailable Alfonso Renteria MD Unavailable [phone] Esha Grimm PA-C Primary Care Provider Lomeli, Radha E SUPERVISOR RESEARCH SHOP GLASS SMOOTHER Unavailable [phone] Jelena David OD Unavailable [phone] Esha Grimm PA-C Unavailable [phone] Valery Veronica PA-C Unavailable [phone] Rey Tay MD Unavailable Rocky Zepeda DO Unavailable Philip Dumont MD Unavailable [phone] Meredith Carrera PA-C Unavailable Neil Kent MD Unavailable Juan Pablo Emmanuel MD Unavailable Audrey Waite PA-C Unavailable Valery Veronica PA-C Unavailable Herminia Hatch MD Unavailable Encounter Details Date Type Department Care Team (Late st Contact Info) Description 02/27/2024 [facility] Medical Advice [facility] Spine and Neurosurgery [address] [place] [address] Ebony Cid APRN GLASS SMOOTHER 500 [place] [address] Social History Tobacco Use Types [...] week 03/10/2023 How often do you attend [facility] or yarsani services? 1 to 4 times [...] Answer Date Recorded PHQ-2 Score 1 02/07/2024 [facility] - Occupational Stress Questionnaire [...] exercise at this level? 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 MEDIA RELATIONS DIRECTOR Gender Identity Female 03/02/2021 5:45 PM CDT Sexual Orientation Straight 02/28/2020 12 :51 AM CDT documented as of this encounter Plan of Treatment Upcoming Encounters Date Type Department Care Team (Late st Contact Info) Description 10/23/2024 9:30 AM CDT Office Visit [facility] Neurology [address] [place] [address] [place] [address] [place] [address] Johnny Penn MD [address] [place] [phone] 11/28/2024 7:45 AM CDT Virtual Visit [facility] Gastroenterology Clinic [address] [place] [address] Meredith Carrera PA-C 909 [place] [address] documented as of this encounter Visit Diagnoses Not on filedocumented in this encounter Additional Health Concerns Infection Onset Date Last Indicated Resolved Time Rule Out COVID-19 04/09/2024 04/09/2024 04/10/2024 6:48 PM CDT Assessment Noted Time PHQ-9 Depression Total Score: 3 02/07/20 24 9:33 AM CDT documented as of this encounter Care Teams Patent Agent Relationship Specialty Start Date End Date Esha Grimm PA-C [address] [place] [address] PCP - General Family Medicine 05/04/23 [facility] 3033 [place] [address] Pharmacist Pharmacist 04/17/21 Rain Galaviz PA-C [address] [place] [address] [address] [place] [address] Physician Mold Stacker Dermatology 04/28/21 Tavia Wyatt MD [address] [place] [address] [address] [place] [address] Dermatology 07/14/21 Erica Frarell APRN GLASS SMOOTHER [address] [place] [id number] [place] [address] Nurse Practitioner Cardiovascular Disease 09/09/21 Rich Barrett MD 6 [facility] 9A [place], [place] [address] Physician Ophthalmology 01/21/22 Neil Kent MD 500 [place], [place] 728045 Dermatology 02/24/22 Diana Desir, [facility] 3033 [place] [address] Assigned MTM Pharmacist 04/07/22 Livan Sharif MD [address] 800[address] Cardiovascular Disease 05/14/22 Catherine Cm MD [address] 071555 Cardiovascular Disease 07/21/22 Valery Veronica, PA-C 909 [place], [place] 9[address] Physician Mold Stacker Dermatology 07/21/22 Brea Quinn APRN GLASS SMOOTHER 500 [place] [address] Nurse Practitioner Dermatology 09/21/22 Brea Quinn APRN GLASS SMOOTHER [address] [place] [address] [facility] [facility] 287882 Assigned Surgical Provider 10/09/22 05/01/24 [place] [address] 894247 Assigned Musculoskeletal Provider 10/09/22 05/01/24 Alfonso Renteria MD [address] 200 [place] [address] Assigned Neuroscience Provider 04/02/23 Radha Lomeli APRN GLASS SMOOTHER 6405 [facility] [address] [place] [address] Assigned Heart and Vascular Provider 05/28/23 Jelena David OD [address] [facility] [address] MD Ophthalmology 06/15/23 Esha Grimm PA-C [address] [place] [address] Assigned PCP 07/16/23 Valery Veronica PA-C [address] [place] [address] 755985 Physician Mold Stacker Dermatology 09/19/23 Rey Tay MD [address] [place] [address] 814895 MD Gastroenterology 09/20/23 Rocky Zepeda DO [address] [place] [address] 002985 Physician Gastroenterology 09/20/23 Philip Dumont MD [address] [place] [address] 152485 Physician Ophthalmology 09/22/23 Meredith Carrera PA-C 909 [place] [address] Assigned Gastroenterology Provider 11/01/23 Neil Kent MD [address] [address] Dermatology 11/02/23 [place] [address] 319167 Neurological Surgery 12/26/23 Audrey Waite PA-C 500 [place] [address] Physician Mold Stacker Dermatology 02/28/24 Valery Veronica PA-C 875847 [address] [place] [address] Physician Mold Stacker Dermatology 04/10/24 Herminia Hatch MD 1875 [place] [address] Assigned Rheumatology Provider 07/02/24 documented as of this encounter
--- OUTSIDE RECORDS SUMMARY | 2024-07-22 20:41 | XMS_ITS | Encounter Summary ---
Author Organization [place] Address [address] [place] [address] Care Team Providers Care Student Name Role Phone Diana Desir [facility] Unavailable Rain Galaviz PA-C Unavailable Tavia Wyatt MD Unavailable Erica Farrell APRN LOADING SHOVEL OILER Unavailable Rich Barrett MD Unavailable [phone] Neil Kent MD Unavailable Diana Desir [facility] Unavailable Livan Sharif MD Unavailable Catherine Cm MD Unavailable + Valery Veronica PA-C Unavailable Brea Quinn AFTER SCHOOL TEACHER LOADING SHOVEL OILER Unavailable Brea Quinn AFTER SCHOOL TEACHER LOADING SHOVEL OILER Unavailable Jose Francisco Johnson MD Unavailable Alfonso Renteria MD Unavailable [phone] Esha Grimm PA-C Primary Care Provider Radha Lomeli APRN LOADING SHOVEL OILER Unavailable Jelena David OD Unavailable Pao Joseph RN Unavailable Unavailable Esha Grimm PA-C Unavailable [phone] Valery Veronica PA-C Unavailable Rey Tay MD Unavailable Rocky Zepeda DO Unavailable Philip Dumont MD Unavailable Meredith Carrera PA-C Unavailable Neil Kent MD Unavailable Juan Pablo Emmanuel MD Unavailable Audrey Waite PA-C Unavailable Valery Veronica PA-C Unavailable [phone] Herminia Hatch MD Unavailable Reason for Visit * Reason Onset Date Comments Medication Question 10/21/2023 omeprazole Encounter Details Date Type Department Care Team (Late st Contact Info) Description 10/21/2023 Telephone [facility] Gastroenterology Clinic [address] [place] [address] Meredith Carrera PA-C [address] [place] [address] Medication Question (omeprazole ) Social History [...] 0 10/25/2023 [facility] [...] PM CDT Legal Sex Female 4:13 AM C D STRIPPER Gender Identity Female 03/02/2021 5:45 PM CDT [...] routed to: [facility]STR[facility]OLOG[facility]ULT [facility][[id number]] Travel Screening: Not Applicable documented in this encounter Plan of Treatment Upcoming Encounters Date Type Department Care Team (Late st Contact Info) Description 10/23/2024 9:30 AM CDT Office Visit [facility] Neurology Clinics - [place] [address] [facility], [address] [place] [phone] [place] [address] [address] [place] [address] Johnny Penn MD [address] [place] 37[address] 11/28/2024 7:45 AM CDT Virtual Visit [facility] Gastroenterology Clinic [address] 4th [place] [phone] Meredith Carrera PA-C [address] [place] [address] 751335 documented as of this encounter Visit Diagnoses Not on filedocumented in this encounter Additional Health Concerns Infection Onset Date Last Indicated Resolved Time Rule Out COVID-19 12/26/2023 12/26/2023 12/26/2023 9:50 AM CDT Rule Out COVID-19 04/09/2024 04/09/2024 04/10/2024 6:48 PM CDT Assessment Noted Time PHQ-9 Depression Total Score: 4 06/20/20 23 8:40 AM C D STRIPPER documented as of this encounter Care Teams Student Relationship Specialty Start Date End Date Esha Grimm PA-C [address] [place] [address] PCP - General Family Medicine 05/04/23 Diana Desir, [facility] [address] [place], [place] [address] Pharmacist Pharmacist 04/17/21 Rain Galaviz PA-C [address] [place] [address] [address] [place] [address] Physician Shear Operator Automatic Dermatology 04/28/21 Tavia Wyatt MD [address] [place] [address] [address] [place] [address] Dermatology 07/14/21 Erica Farrell APRN LOADING SHOVEL OILER [address] [place] 602035 Nurse Practitioner Cardiovascular Disease 09/09/21 Rich Barrett MD [address] [place] [address] 9[address] [place], [place] 7[address] Physician Ophthalmology 01/21/22 Neil Kent MD 500 [place], [place] 179175 Dermatology 02/24/22 Diana Desir, [facility] [address] [place] [address] Assigned MTM Pharmacist 04/07/22 Livan Sharif MD [address] [place] 283675 Cardiovascular Disease 05/14/22 Catherine Cm MD [address] [place] [address] Cardiovascular Disease 07/21/22 Valery Veronica PA-C 909 [place], [place] 784895 Physician Shear Operator Automatic Dermatology 07/21/22 Brea Quinn APRN LOADING SHOVEL OILER 500 [place], [place] [address] Nurse Practitioner Dermatology 09/21/22 Brea Quinn APRN LOADING SHOVEL OILER 6401 [facility] [place] 242922 Assigned Surgical Provider 10/09/22 05/01/24 [place] [address] [address] [place] [facility] 300 [place] [address] Assigned Musculoskeletal Provider 10/09/22 05/01/24 Alfonso Renteria MD 5775 [facility] 200 [place] [address] Assigned Neuroscience Provider 04/02/23 Radha Lomeli APRN LOADING SHOVEL OILER 6[address] [facility] [address] [place] 483365 Assigned Heart and Vascular Provider 05/28/23 Jelena David OD 3305 [facility] [place] [id number] Ophthalmology 06/15/23 Pao Joseph, VJ Personal Advocate & Liaison (PAL) Nurse 08/01/23 11/07/23 Esha Grimm PA-C [address] [place] [phone] Assigned PCP 07/16/23 Valery Veronica PA-C 9 [place] [address] Physician Shear Operator Automatic Dermatology 09/19/23 Rey Tay MD 9 [place], [place] 176735 MD Gastroenterology 09/20/23 Rocky Zepeda DO [address] [place] [address] 730575 Physician Gastroenterology 09/20/23 Philip Dumont MD [address] [place] [address]7715 Physician Ophthalmology 09/22/23 Meredith Carrera PA-C 9 [place], [place] 004105 Assigned Gastroenterology Provider 11/01/23 Neil Kent MD [address] [address] Dermatology 11/02/23 [place] [address] [address] [address] [facility] [place], [place] 3496[address] Neurological Surgery 12/26/23 Audrey Waite PA-C [address] [place] [address] Physician Shear Operator Automatic Dermatology 02/28/24 Valery Veronica PA-C [address] [place] [address] Physician Shear Operator Automatic Dermatology 04/10/24 Herminia Hatch MD [address] [place] [address] Assigned Rheumatology Provider 07/02/24 documented as of this encounter
--- OUTSIDE RECORDS SUMMARY | 2024-07-22 20:41 | XMS_ITS | Encounter Summary ---
Author Organization [place] Address [address] [place] [address] Care Team Providers Care Heating Unit Installer Name Role Phone Diana Desir [facility] Unavailable Rain Galaviz PA-C Unavailable [phone] Tavia Wyatt MD Unavailable Erica Farrell APRN PUBLIC HOUSING MANAGER Unavailable Rich Barrett MD Unavailable [phone] Neil Kent MD Unavailable Diana Desir [facility] Unavailable Livan Sharif MD Unavailable Catherine Cm MD Unavailable + Valery Veronica PA-C Unavailable Brea Quinn PHARMACY SCHEDULER PUBLIC HOUSING MANAGER Unavailable Brea Quinn PHARMACY SCHEDULER PUBLIC HOUSING MANAGER Unavailable [phone] Jose Francisco Johnson MD Unavailable Alfonso Renteria MD Unavailable [phone] Esha Grimm PA-C Primary Care Provider Radha Lomeli APRN PUBLIC HOUSING MANAGER Unavailable Jelena David OD Unavailable Esha Grimm PA-C Unavailable [phone] Valery Veronica PA-C Unavailable [phone] Rey Tay MD Unavailable Rocky Zepeda DO Unavailable Philip Dumont MD Unavailable [phone] Meredith Carrera PA-C Unavailable [phone] Neil Kent MD Unavailable Juan Pablo Emmanuel MD Unavailable [phone] Audrey Waite PA-C Unavailable [phone] Valery Veronica PA-C Unavailable [phone] Herminia Hatch MD Unavailable Encounter Details Date Type Department Care Team (Late st Contact Info) Description 11/16/2023 [facility] Medical Advice [address] [address] Asiya Reddy, RN Social [...] PHQ-2 Score 0 10/25/2023 [facility] - Occupational Stress [...] PM CDT Legal Sex Female 4:13 AM CARRIAGE SETTER Gender Identity Female 03/02/2021 5:45 PM CDT Sexual Orientation Straight 02/28/2020 12 :51 AM CDT documented as of this encounter Plan of Treatment Upcoming Encounters Date Type Department Care Team (Late st Contact Info) Description 10/23/2024 9:30 AM CDT Office Visit [facility] Neurology [address], [address] [place] [address] [place] [address] [place], [place] [address] Johnny Penn MD [address] [place], [place] [address]605 11/28/2024 7:45 AM CDT Virtual Visit [facility] Gastroenterology Clinic [address] 4th [place] [address] Meredith Carrera PA-C [address] [place] [address] documented as of this encounter Visit Diagnoses Not on filedocumented in this encounter Additional Health Concerns Infection Onset Date Last Indicated Resolved Time Rule Out COVID-19 12/26/2023 12/26/2023 12/26/2023 9:50 AM CDT Rule Out COVID-19 04/09/2024 04/09/2024 04/10/2024 6:48 PM CDT Assessment Noted Time PHQ-9 Depression Total Score: 4 06/20/20 8:40 AM CARRIAGE SETTER documented as of this encounter Care Teams Heating Unit Installer Relationship Specialty Start Date End Date Esha Grimm PA-C [address] [place] [address] PCP - General Family Medicine 05/04/23 Diana Desir, [facility] [address] [place] [address] Pharmacist Pharmacist 04/17/21 Rain Galaviz PA-C [address] [place] [address] [address] [place] [address] Physician Pot Sander Dermatology 04/28/21 Tavia Wyatt MD [address] [place] [address] [address] [place] [address] Dermatology 07/14/21 Erica Farrell APRN PUBLIC HOUSING MANAGER 6[address] [facility] [place] [address] Nurse Practitioner Cardiovascular Disease 09/09/21 Rich Barrett MD [address] [address] Physician Ophthalmology 01/21/22 Neil Kent MD 500 [place], [place] 49[address] Dermatology 02/24/22 Diana Desir, [facility] 3033 [place], [place] 539336 Assigned MTM Pharmacist 04/07/22 Livan Sharif MD [address] [facility] [place] [id number] Cardiovascular Disease 05/14/22 Catherine Cm MD [address] [facility] [place] 9446[address] Cardiovascular Disease 07/21/22 Valery Veronica, PA-C 909 [place], [place] 7[address] Physician Pot Sander Dermatology 07/21/22 Brea Quinn APRN PUBLIC HOUSING MANAGER 500 [place], [place] 288235 Nurse Practitioner Dermatology 09/21/22 Brea Quinn APRN PUBLIC HOUSING MANAGER [address] [place] [address] [place] 379662 Assigned Surgical Provider 10/09/22 05/01/24 [place] [address] [place], [place] [address] Assigned Musculoskeletal Provider 10/09/22 05/01/24 Alfonso Renteria MD [address] [facility] [address] 200 [place] [address] Assigned Neuroscience Provider 04/02/23 Radha Lomeli APRN PUBLIC HOUSING MANAGER [address] [facility] [address] [place] [address] Assigned Heart and Vascular Provider 05/28/23 Jelena David OD [address] [facility] [address] MD Ophthalmology 06/15/23 Esha Grimm PA-C [address] [place] [address] Assigned PCP 07/16/23 Valery Veronica PA-C [address] [place] [address] 749665 Physician Pot Sander Dermatology 09/19/23 Rey Tay MD [address] [place] [address] 615325 Gastroenterology 09/20/23 Rocky Zepeda DO [address] [place] [place] [address] 114395 Physician Gastroenterology 09/20/23 Philip Dumont MD [address] [place] [address] 363185 Physician Ophthalmology 09/22/23 Meredith Carrera PA-C 909 [place] [address] Assigned Gastroenterology Provider 11/01/23 Neil Kent MD [address] [place] [address] Dermatology 11/02/23 [place] [address] 780[address] Neurological Surgery 12/26/23 Audrey Waite PA-C 500 [place] [address] Physician Pot Sander Dermatology 02/28/24 Valery Veronica PA-C [address] [place] [address] Physician [place] Sander Dermatology 04/10/24 Herminia Hatch MD [facility]5 [place] [address] Assigned Rheumatology Provider 07/02/24 documented as of this encounter
--- OUTSIDE RECORDS SUMMARY | 2024-07-22 20:41 | XMS_ITS | Encounter Summary ---
Author Organization [place] Address [address] [place] [address] Care Team Providers Care Bath Mixer Name Role Phone Diana Desri [facility] Unavailable Rain Galaviz PA-C Unavailable [phone] Tavia Wyatt MD Unavailable Erica Farrell APRN MORTAR WORKER Unavailable Rich Barrett MD Unavailable [phone] Neil Kent MD Unavailable Diana Desir [facility] Unavailable Livan Sharif MD Unavailable Catherine Cm MD Unavailable + Valery Veronica PA-C Unavailable Brea Quinn MANUFACTURED BUILDINGS SUPERVISOR MORTAR WORKER Unavailable Brea Quinn MANUFACTURED BUILDINGS SUPERVISOR MORTAR WORKER Unavailable Jose Francisco Johnson MD Unavailable Alfonso Renteria MD Unavailable [phone] Esha Grimm PA-C Primary Care Provider [phone] Lomeli, Radha E MANUFACTURED BUILDINGS SUPERVISOR MORTAR WORKER Unavailable [phone] Jelena David OD Unavailable Esha Grimm PA-C Unavailable [phone] Valery Veronica PA-C Unavailable [phone] Rey Tay MD Unavailable Rocky Zepeda DO Unavailable Philip Dumont MD Unavailable [phone] Meredith Carrera PA-C Unavailable [phone] Neil Kent MD Unavailable Juan Pablo Emmanuel MD Unavailable [phone] Audrey Waite PA-C Unavailable [phone] Valery Veronica PA-C Unavailable Herminia Hatch MD Unavailable Encounter Details Date Type Department Care Team (Late st Contact Info) Description 11/21/2023 [facility] Medical Advice [facility] Gastroenterology Clinic [address]th [place] [address] Sofia Alacntar Social History Tobacco Use Types Packs/Day Years [...] 0 10/25/2023 [facility] - Occupational Stress Questionnaire Answer Date [...] exercise at this level? 30 min 03/10/2023 [place] Depression Scale Answer Date Recorded [place] Depression Score 5 01/14/2021 Last EPDS [...] PM CDT Legal Sex Female 4:13 AM PIANO CASE AND BENCH ASSEMBLER Gender Identity Female 03/02/2021 5:45 PM CDT Sexual Orientation Straight 02/28/2020 12 :51 AM CDT documented as of this encounter Plan of Treatment Upcoming Encounters Date Type Department Care Team (Late st Contact Info) Description 10/23/2024 9:30 AM CDT Office Visit [facility] Neurology [address], [address] [place] [address] [place] [address] [place] [address] 629367 Johnny Penn MD 6077 [place], [place] 4[address] 11/28/2024 7:45 AM CDT Virtual Visit [facility] Gastroenterology Clinic [address] 4th [place] [address] Meredith Carrera PA-C [address] [place] [address] documented as of this encounter Visit Diagnoses Not on filedocumented in this encounter Additional Health Concerns Infection Onset Date Last Indicated Resolved Time Rule Out COVID-19 12/26/2023 12/26/2023 12/26/2023 9:50 AM CDT Rule Out COVID-19 04/09/2024 04/09/2024 04/10/2024 6:48 PM CDT Assessment Noted Time PHQ-9 Depression Total Score: 4 06/20/20 8:40 AM PIANO CASE AND BENCH ASSEMBLER documented as of this encounter Care Teams Bath Mixer Relationship Specialty Start Date End Date Esha Grimm PA-C [address] [place] [address] PCP - General Family Medicine 05/04/23 Diana Desir, [facility] [address] [facility] [place] [address] Pharmacist Pharmacist 04/17/21 Rain Galaviz PA-C [address] [place] [address] [address] [place] [address] Physician Patch Finisher Dermatology 04/28/21 Tavia Wyatt MD [address] [place] [address] [address] [place] [address] Dermatology 07/14/21 Erica Farrell APRN MORTAR WORKER 6405 [facility] [place] [address] Nurse Practitioner Cardiovascular Disease 09/09/21 Rich Barrett MD 6 [facility] 9A [place] [address] Physician Ophthalmology 01/21/22 Neil Kent MD 500 [place], [place] 8[address]335 Dermatology 02/24/22 Diana Desir, [facility] 3033 [place] [address] Assigned MTM Pharmacist 04/07/22 Livan Sharif MD [address] [facility]00 [place] [address]145 Cardiovascular Disease 05/14/22 Catherine Cm MD [address] [facility] [place] [address] Cardiovascular Disease 07/21/22 Valery Veronica, PA-C 909 [place], [place] 5[address] Physician Patch Finisher Dermatology 07/21/22 Brea Quinn APRN MORTAR WORKER 500 [place] [address] Nurse Practitioner Dermatology 09/21/22 Bera Quinn APRN MORTAR WORKER 6401 [facility] [place] 896272 Assigned Surgical Provider 10/09/22 05/01/24 [place] [address] [place] [address] Assigned Musculoskeletal Provider 10/09/22 05/01/24 Alfonso Renteria MD [address] [facility] [address] 200 [place] [address] Assigned Neuroscience Provider 04/02/23 Radha Lomeli APRN MORTAR WORKER 6405 [facility] [address] [place] [address] Assigned Heart and Vascular Provider 05/28/23 Jelena David OD [address] [facility] [place] [address] Ophthalmology 06/15/23 Esha Grimm PA-C [address] [place] [address] Assigned PCP 07/16/23 Valery Veronica PA-C [address] [place] [address] 324065 Physician Patch Finisher Dermatology 09/19/23 Rey Tay MD 9 [place], [place] 85[address] Gastroenterology 09/20/23 Rocky Zepeda DO [address] [place] [address] 803665 Physician Gastroenterology 09/20/23 Philip Dumont MD [address] [place] [address] 342245 Physician Ophthalmology 09/22/23 Meredith Carrera PA-C 909 [place] [address] Assigned Gastroenterology Provider 11/01/23 Neil Kent MD [address] [place] [address] Dermatology 11/02/23 [place] [address] [address] Neurological Surgery 12/26/23 Audrey Waite PA-C 500 [place] [address] Physician Patch Finisher Dermatology 02/28/24 Valery Veronica PA-C [address] [place] [address] Physician Patch Finisher Dermatology 04/10/24 Herminia Hatch MD [facility]5 [place] [address] Assigned Rheumatology Provider 07/02/24 documented as of this encounter
--- OUTSIDE RECORDS SUMMARY | 2024-07-22 20:41 | XMS_ITS | Encounter Summary ---
Author Organization [place] Address [address] [place] [address] Care Team Providers Care Director Instructional Material Name Role Phone Diana Desir [facility] Unavailable Rain Galaviz PA-C Unavailable Tavia Wyatt MD Unavailable Erica Farrell APRN BRACELET FORM COVERER Unavailable Rich Barrett MD Unavailable [phone] Neil Kent MD Unavailable Diana Desir [facility] Unavailable Livan Sharif MD Unavailable Catherine Cm MD Unavailable + Valery Veronica PA-C Unavailable Brea Quinn WATER QUALITY ASSISTANT BRACELET FORM COVERER Unavailable Brea Quinn WATER QUALITY ASSISTANT BRACELET FORM COVERER Unavailable Jose Francisco Johnson MD Unavailable Alfonso Renteria MD Unavailable [phone] Esha Grimm PA-C Primary Care Provider [phone] Lomeli, Radha E WATER QUALITY ASSISTANT BRACELET FORM COVERER Unavailable [phone] Jelena David OD Unavailable Esha Grimm PA-C Unavailable Valery Veronica PA-C Unavailable [phone] Rey Tay MD Unavailable Rocky Zepeda DO Unavailable Philip Dumont MD Unavailable [phone] Meredith Carrera PA-C Unavailable Neil Kent MD Unavailable Juan Pablo Emmanuel MD Unavailable [phone] Audrey Waite PA-C Unavailable [phone] Valery Veronica PA-C Unavailable Herminia Hatch MD Unavailable Reason for Visit * Reason Onset Date Comments Appointment 12/02/2023 Clarification Encounter Details Date Type Department Care Team (Late st Contact Info) Description 12/02/2023 Telephone [facility] Heart [facility] 6[address] [facility] [address] [place] [address] Radha Lomeli, WATER QUALITY ASSISTANT BRACELET FORM COVERER 6405 [facility] [address] [place] [address] Appointment (Clarification) Social History Tobacco Use [...] Answer Date Recorded PHQ-2 Score 0 10/25/2023 [facility] Occupat ional [facility] - Occupational Stress Questionnaire Answer Date Recorded [...] exercise at this level? 30 min 03/10/2023 [place] Depression Scale Answer Date Recorded [place] Depression Score 5 01/14/2021 Last EPDS Self [...] PM CDT Legal Sex Female 4:13 AM REHABILITATION THERAPY AIDE Gender Identity Female 03/02/2021 5:45 PM CDT Sexual Orientation Straight 02/28/2020 12 :51 AM CDT documented as of this encounter Miscellaneous Notes * Telephone Encounter - Carley Myles RN - 12/02/2023 10:22 AM CDT Discussed with patient and reviewed questions. Questions pertaining to OV's scheduled. Carley ZABALA [facility] * Telephone Encounter - Janett Fragoso - 12/02/2023 8:56 AM CDT [facility] Call Center Phone Message May a detailed [...] Description 10/23/2024 9:30 AM CDT Office Visit [facility] Neurology [facility] - [place] [address] [facility], [address] [place] [address] [place] [address] [place] [address] Johnny Penn MD 5849 [place] [address] 11/28/2024 7:45 AM CDT Virtual Visit [facility] Gastroenterology Clinic [address]th [place] [address] Meredith Carrera PA-C [address] [place] [address] 643845 documented as of this encounter Visit Diagnoses Not on filedocumented in this encounter Additional Health Concerns Infection Onset Date Last Indicated Resolved Time Rule Out COVID-19 12/26/2023 12/26/2023 12/26/2023 9:50 AM CDT Rule Out COVID-19 04/09/2024 04/09/2024 04/10/2024 6:48 PM CDT Assessment Noted Time PHQ-9 Depression Total Score: 4 06/20/20 23 8:40 AM REHABILITATION THERAPY AIDE documented as of this encounter Care Teams Director Instructional Material Relationship Specialty Start Date End Date Esha Grimm PA-C [address] [place] [address] PCP - General Family Medicine 05/04/23 Diana Desir, [facility] [address] [place] [address] Pharmacist Pharmacist 04/17/21 Rain Galaviz PA-C [address] [place] [address] [address] [place] [address] Physician Yam Curer Dermatology 04/28/21 Tavia Wyatt MD [address] [place] [address] [address] [place] [address] Dermatology 07/14/21 Erica Farrell APRN BRACELET FORM COVERER [address] [place] 4[address] Nurse Practitioner Cardiovascular Disease 09/09/21 Rich Barrett MD 516 [facility] 9A [place], [place] 594085 Physician Ophthalmology 01/21/22 Neil Kent MD 500 [place], [place] 142775 Dermatology 02/24/22 Diana Desir, [facility] [address] [place] [address] Assigned MTM Pharmacist 04/07/22 Livan Sharif MD [address] [place] [address] Cardiovascular Disease 05/14/22 Catherine Cm MD [address] [facility] S [address]NI [address] [place] [address] Cardiovascular Disease 07/21/22 Valery Veronica PA-C 909 [place] [address] Physician Yam Curer Dermatology 07/21/22 Brea Quinn APRN BRACELET FORM COVERER 500 [place], [place] 335095 Nurse Practitioner Dermatology 09/21/22 Brea Quinn APRN BRACELET FORM COVERER 6401 [facility] [place] [address] Assigned Surgical Provider 10/09/22 05/01/24 [place] [address] [address] [facility] 300 [place] [address] Assigned Musculoskeletal Provider 10/09/22 05/01/24 Alfonso Renteria MD 5775 [facility] 200 [place], [place] 929956 Assigned Neuroscience Provider 04/02/23 Radha Lomeli APRN BRACELET FORM COVERER [address] [facility] [address] [place] [address]85 Assigned Heart and Vascular Provider 05/28/23 Jelena David OD [address] [facility] [place] [address] Ophthalmology 06/15/23 Esha Grimm PA-C [address] [place] [address] Assigned PCP 07/16/23 Valery Veronica PA-C [address] [place] [address] 466855 Physician Yam Curer Dermatology 09/19/23 Rey Tay MD [address] [place] [address] MD Gastroenterology 09/20/23 Rocky Zepeda DO [address] [place] [address] 690605 Physician Gastroenterology 09/20/23 Philip Dumont MD [address] [place] [address] 748385 Physician Ophthalmology 09/22/23 Meredith Carrera PA-C [address] [place] [address] Assigned Gastroenterology Provider 11/01/23 Neil Kent MD [address] [address] Dermatology 11/02/23 [place] [address] [place], [place] [address] Neurological Surgery 12/26/23 Audrey Waite PA-C [address] [place] [address] 888125 Physician Yam Curer Dermatology 02/28/24 Valery Veronica PA-C [address] [place] [address] Physician Yam Curer Dermatology 04/10/24 Herminia Hatch MD [facility]5 [place], [place] 15327[address] Assigned Rheumatology Provider 07/02/24 documented as of this encounter
--- OUTSIDE RECORDS SUMMARY | 2024-07-22 20:41 | XMS_ITS | Encounter Summary ---
Author Organization [place] Address [address] [place] [address] Care Team Providers Care Last Chalker Name Role Phone Diana Desir [facility] Unavailable Rain Galaviz PA-C Unavailable Tavia Wyatt MD Unavailable Erica Farrell APRN KERRICK KLEANER OPERATOR Unavailable Rich Barrett MD Unavailable [phone] Neil Kent MD Unavailable Diana Desir [facility] Unavailable [phone] Livan Sharif MD Unavailable Catherine Cm MD Unavailable + Valery Veronica PA-C Unavailable Brea Quinn QUALITY CONTROL SUPERVISOR KERRICK KLEANER OPERATOR Unavailable Brea Quinn QUALITY CONTROL SUPERVISOR KERRICK KLEANER OPERATOR Unavailable Jose Francisco Johnson MD Unavailable Alfonso Renteria MD Unavailable [phone] Esha Grimm PA-C Primary Care Provider [phone] Radha Lomeli APRN KERRICK KLEANER OPERATOR Unavailable Jelena David OD Unavailable Pao Joseph RN Unavailable Unavailable Esha Grimm PA-C Unavailable [phone] Valery Veronica PA-C Unavailable [phone] Rey Tay MD Unavailable Rocky Zepeda DO Unavailable Philip Dumont MD Unavailable [phone] Meredith Carrera PA-C Unavailable [phone] Neil Kent MD Unavailable Juan Pablo Emmanuel MD Unavailable [phone] Audrey Waite PA-C Unavailable [phone] Valery Veronica PA-C Unavailable [phone] Herminia Hatch MD Unavailable Encounter Details Date Type Department Care Team (Late st Contact Info) Description 09/08/2023 [facility] Medical Advice [facility] Gastroenterology Clinic [address] [address] Marija Polanco RN Social History [...] do you attend [facility] or [facility]? 1 to 4 [...] Answer Date Recorded PHQ-2 Score 0 06/20/2023 [facility] - [...] exercise at this level? 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 ASSOCIATE Gender Identity Female 03/02/2021 5:45 PM CDT Sexual Orientation Straight 02/28/2020 12 :51 AM CDT documented as of this encounter Plan of Treatment Upcoming Encounters Date Type Department Care Team (Late st Contact Info) Description 10/23/2024 9:30 AM CDT Office Visit [facility] Neurology [address], [address] [place] [address] [place] [address] [place] [address] Johnny Penn MD [address] [place] 058235 11/28/2024 7:45 AM CDT Virtual Visit [facility]ology [facility] [address] 4th [place] [address] Meredith Carrera PAUcheC [address]09 [place] [address] documented as of this encounter Visit Diagnoses Not on filedocumented in this encounter Additional Health Concerns Infection Onset Date Last Indicated Resolved Time Rule Out COVID-19 12/26/2023 12/26/2023 12/26/2023 9:50 AM CDT Rule Out COVID-19 04/09/2024 04/09/2024 04/10/2024 6:48 PM CDT Assessment Noted Time PHQ-9 Depression Total Score: 4 06/20/20 8:40 AM IN STORE MARKETING ASSOCIATE documented as of this encounter Care Teams Last Chalker Relationship Specialty Start Date End Date Esha Grimm PA-C [address] [place] [address] PCP - General Family Medicine 05/04/23 Diana Desir, [facility] [address] [place] [address] Pharmacist Pharmacist 04/17/21 Rain Galaviz PA-C [address] [place] [address] [address] [place] [address] Physician Horse Race Starter Dermatology 04/28/21 Tavia Wyatt MD [address] [place] [address] [address] [place] [address] Dermatology 07/14/21 Erica Farrell APRN KERRICK KLEANER OPERATOR [address] 0169200 [place] [address] Nurse Practitioner Cardiovascular Disease 09/09/21 Rich Barrett MD [address] [place] [address] Physician Ophthalmology 01/21/22 Neil [place] MD 500 [place], [place] 841855 Dermatology 02/24/22 Diana Desir, [facility] [address] [place] [address] Assigned MTM Pharmacist 04/07/22 Livan Sharif MD [address] 530865 Cardiovascular Disease 05/14/22 Catherine Cm MD [address] 113735 Cardiovascular Disease 07/21/22 Valery Veronica, PA-C 9[address] [place], [place] 494365 Physician Horse Race Starter Dermatology 07/21/22 Brea Quinn APRN KERRICK KLEANER OPERATOR 500 [place] [address] Nurse Practitioner Dermatology 09/21/22 Brea Quinn APRN KERRICK KLEANER OPERATOR [address] [place] [address] [facility] 429062 Assigned Surgical Provider 10/09/22 05/01/24 [place] [address] 545887 Assigned Musculoskeletal Provider 10/09/22 05/01/24 Alfonso Renteria MD [address] [place] [address] Assigned Neuroscience Provider 04/02/23 Radha Lomeli APRN KERRICK KLEANER OPERATOR [address] [facility] [address] [place] [address] Assigned Heart and Vascular Provider 05/28/23 Jelena David OD [address] [place] [address] Ophthalmology 06/15/23 Pao Joseph, VJ Personal Advocate & Liaison (PAL) Nurse 08/01/23 11/07/23 Esha Grimm PA-C [address] [place] [address] Assigned PCP 07/16/23 Valery Veronica PA-C [address] [place] [address] 941075 Physician Horse Race Starter Dermatology 09/19/23 Rey Tay MD [address] [place] [address] 348705 Gastroenterology 09/20/23 Rocky Zepeda DO [address] [place] [address] 707105 Physician Gastroenterology 09/20/23 Philip Dumont MD [address] [place] [address] Physician Ophthalmology 09/22/23 Meredith Carrera PA-C [address] [place] [address] Assigned Gastroenterology Provider 11/01/23 Neil Kent MD [address] [address] Dermatology 11/02/23 [place] [address] [address] [address] Neurological Surgery 12/26/23 Audrey Waite PA-C [address] [place] [address] Physician Horse Race Starter Dermatology 02/28/24 Valery Veronica PA-C 216740 [address], [place] [address] Physician Horse Race Starter Dermatology 04/10/24 Herminia Hatch MD [facility]5 [place], [place] 52785[address] Assigned Rheumatology Provider 07/02/24 documented as of this encounter
--- OUTSIDE RECORDS SUMMARY | 2024-07-22 20:41 | XMS_ITS | Encounter Summary ---
Author Organization [place] Address [address] [place] [address] Care Team Providers Care Damage Cutter Name Role Phone Diana Desir [facility] Unavailable Rain Galaviz PA-C Unavailable Tavia Wyatt MD Unavailable Erica Farrell APRN LEAD SOFTWARE ARCHITECT Unavailable Rich Barrett MD Unavailable [phone] Neil [place] MD Unavailable Diana Desir [facility] Unavailable [phone] Livan Sharif MD Unavailable Catherine Cm MD Unavailable + Valery Veronica PA-C Unavailable Brea Quinn LEARNING DEVELOPER LEAD SOFTWARE ARCHITECT Unavailable Brea Quinn LEARNING DEVELOPER LEAD SOFTWARE ARCHITECT Unavailable Jose Francisco Johnson MD Unavailable Alfonso Renteria MD Unavailable [phone] Esha Grimm PA-C Primary Care Provider [phone] Radha Lomeli APRN LEAD SOFTWARE ARCHITECT Unavailable Jelena David OD Unavailable [phone] Pao Joseph RN Unavailable Unavailable Esha Grimm PA-C Unavailable [phone] Valery Veronica PA-C Unavailable [phone] Rey Tay MD Unavailable Rocky Zepeda DO Unavailable Philip Dumont MD Unavailable [phone] Meredith Carrera PA-C Unavailable [phone] Neil [place] MD Unavailable Juan Pablo Emmanuel MD Unavailable [phone] Audrey Waite PA-C Unavailable [phone] Valery Veronica PA-C Unavailable [phone] Herminia Hatch MD Unavailable Encounter Details Date Type Department Care Team (Late st Contact Info) Description 10/26/2023 [facility] Medical Advice [facility] Gastroenterology Clinic [address] [address] [place] Social History Tobacco [...] you attend [facility] or [employer]? 1 to 4 times [...] 0 10/25/2023 [facility] - [...] at this level? 30 min 03/10/2023 [place] Depression Scale Answer Date Recorded [place] Depression Score 5 01/14/2021 Last EPDS Self [...] PM CDT Legal Sex Female 4:13 AM GLOBAL PRODUCT MANAGER Gender Identity Female 03/02/2021 5:45 PM CDT Sexual Orientation Straight 02/28/2020 12 :51 AM CDT documented as of this encounter Plan of Treatment Upcoming Encounters Date Type Department Care Team (Late st Contact Info) Description 10/23/2024 9:30 AM CDT Office Visit [facility] Neurology [address], [address] [place] [address] [place] [address] [place] 415[address] Johnny Penn MD [address] [place] [id number] 11/28/2024 7:45 AM CDT Virtual Visit [facility] Gastroenterology Clinic [address] 4th [place] [address] Meredith Carrera PAUcheC 909 [place] [address] documented as of this encounter Visit Diagnoses Not on filedocumented in this encounter Additional Health Concerns Infection Onset Date Last Indicated Resolved Time Rule Out COVID-19 12/26/2023 12/26/2023 12/26/2023 9:50 AM CDT Rule Out COVID-19 04/09/2024 04/09/2024 04/10/2024 6:48 PM CDT Assessment Noted Time PHQ-9 Depression Total Score: 4 06/20/20 8:40 AM GLOBAL PRODUCT MANAGER documented as of this encounter Care Teams Damage Cutter Relationship Specialty Start Date End Date Esha Grimm PA-C [address] [place] [address] PCP - General Family Medicine 05/04/23 Diana Desir, [facility] [address] [place] [address] Pharmacist Pharmacist 04/17/21 Rain Galaviz PA-C [address] [place] [address] [address] [place] [address] Physician Lpn Private Duty Dermatology 04/28/21 Tavia Wyatt MD [address] [place] [address] [address] [place] [address] Dermatology 07/14/21 Erica Farrell APRN LEAD SOFTWARE ARCHITECT [address] 8749700 [place] [address] Nurse Practitioner Cardiovascular Disease 09/09/21 Rich Barrett MD [address] [place] 0[address] Physician Ophthalmology 01/21/22 Neil [place] MD 500 [place], [place] 062885 Dermatology 02/24/22 Diaan Desir, [facility] [address] [place] [address] Assigned MTM Pharmacist 04/07/22 Livan Sharif MD [address] 182415 Cardiovascular Disease 05/14/22 Catherine Cm MD [address] 506985 Cardiovascular Disease 07/21/22 Valery Veronica, PA-C 9[address] [place], [place] 84[address]35 Physician Lpn Private Duty Dermatology 07/21/22 Brea Quinn APRN LEAD SOFTWARE ARCHITECT 500 [place] [address] Nurse Practitioner Dermatology 09/21/22 Brea Quinn APRN LEAD SOFTWARE ARCHITECT [address] [place] [address] [facility] [place] 152852 Assigned Surgical Provider 10/09/22 05/01/24 [place] [address] 508487 Assigned Musculoskeletal Provider 10/09/22 05/01/24 Alfonso eRnteria MD [address] [place] [address] Assigned Neuroscience Provider 04/02/23 Radha Lomeli APRN LEAD SOFTWARE ARCHITECT 6[address] [facility] [address] [place] [address] Assigned Heart and Vascular Provider 05/28/23 Jelena David OD [address] [facility] [place] [address] Ophthalmology 06/15/23 Pao Joseph, VJ Personal Advocate & Liaison (PAL) Nurse 08/01/23 11/07/23 Esha Grimm PA-C [address] [place] [address] Assigned PCP 07/16/23 Valery Veronica PA-C [address] [place] [address] 143455 Physician Lpn Private Duty Dermatology 09/19/23 Rey Tay MD [address] [place] [address] 866155 Gastroenterology 09/20/23 Rocky Zepeda DO [address] [place] [address] 776965 Physician Gastroenterology 09/20/23 Philip Dumont MD [address] [place] [address] Physician Ophthalmology 09/22/23 Meredith Carrera PA-C [address] [place] [address] Assigned Gastroenterology Provider 11/01/23 Neil Kent MD [address] [address] Dermatology 11/02/23 [place] [address] [address] Neurological Surgery 12/26/23 Audrey Waite PA-C [address] [place] [address] Physician Lpn Private Duty Dermatology 02/28/24 Valery Veronica PA-C 694156 [address], [place] [address] Physician Lpn Private Duty Dermatology 04/10/24 Herminia Hatch MD [facility]5 [place], [place] 13159125 Assigned Rheumatology Provider 07/02/24 documented as of this encounter
--- OUTSIDE RECORDS SUMMARY | 2024-07-22 20:41 | XMS_ITS | Encounter Summary ---
Author Organization [place] Address [address] [place] [address] Care Team Providers Care Porcelain Buildup Assistant Name Role Phone Diana Desir [facility] Unavailable Rain Galaviz PA-C Unavailable Tavia Wyatt MD Unavailable Erica Farrell APRN PEN MAKER Unavailable Rich Barrett MD Unavailable [phone] Neil Kent MD Unavailable Diana Desir [facility] Unavailable Livan Sharif MD Unavailable Catherine Cm MD Unavailable + Valery Veronica PA-C Unavailable Brea Quinn CARD DEALER PEN MAKER Unavailable [phone] Brea Quinn CARD DEALER PEN MAKER Unavailable Jose Francisco Johnson MD Unavailable Alfonso Renteria MD Unavailable [phone] Esha Grimm PA-C Primary Care Provider Radha Lomeli APRN PEN MAKER Unavailable Jelena David OD Unavailable [phone] Esha Grimm PA-C Unavailable [phone] Valery Veronica PA-C Unavailable [phone] Rey Tay MD Unavailable Rocky Zepeda DO Unavailable Philip Dumont MD Unavailable [phone] Meredith Carrera PA-C Unavailable [phone] Neil [place] MD Unavailable Juan Pablo Emmanuel MD Unavailable [phone] Audrey Waite PA-C Unavailable [phone] Valery Veronica PA-C Unavailable Herminia Hatch MD Unavailable Encounter Details Date Type Department Care Team (Late st Contact Info) Description 02/01/2024 [facility] Medical Advice [facility] Neurology [address], [address] [place] [address] Macy Pinedo, RN Social History Tobacco [...] Answer Date Recorded PHQ-2 Score 0 10/25/2023 [facility] Occupat ional Health [...] exercise at this level? 30 min 03/10/2023 [place] Depression Scale Answer Date Recorded [place] Depression Score 5 01/14/2021 Last EPDS Self [...] PM CDT Legal Sex Female 4:13 AM TERRAZZO LAYER Gender Identity Female 03/02/2021 5:45 PM CDT Sexual Orientation Straight 02/28/2020 12 :51 AM CDT documented as of this encounter Plan of Treatment Upcoming Encounters Date Type Department Care Team (Late st Contact Info) Description 10/23/2024 9:30 AM CDT Office Visit [facility] Neurology [address], [address] [place] [address] [place] [address] [facility] [place] [facility] [place] [address]57 Johnny Penn MD [address] [facility] [place] 7[address]85 11/28/2024 7:45 AM CDT Virtual Visit [facility] Gastroenterology Clinic [address] 4th [place] [address] Meredith Carrera PA-C [address] [place], [place] [address] documented as of this encounter Visit Diagnoses Not on filedocumented in this encounter Additional Health Concerns Infection Onset Date Last Indicated Resolved Time Rule Out COVID-19 04/09/2024 04/09/2024 04/10/2024 6:48 PM CDT Assessment Noted Time PHQ-9 Depression Total Score: 4 06/20/20 23 8:40 AM TERRAZZO LAYER documented as of this encounter Care Teams Porcelain Buildup Assistant Relationship Specialty Start Date End Date Esha Grimm PA-C [address] [place] [address] PCP - General Family Medicine 05/04/23 Diana Desir, [facility] [address] [place] [address] Pharmacist Pharmacist 04/17/21 Rain Galaviz PA-C [address] [place] [address] [address] [place] [address] Physician Protection Chief Industrial Plant Dermatology 04/28/21 Tavia Wyatt MD [address] [place] [address] [address] [place] [address] Dermatology 07/14/21 Erica Farrell APRN PEN MAKER 6405 [facility] [address] [place] 889815 Nurse Practitioner Cardiovascular Disease 09/09/21 Rich Barrett MD 516 [facility] [address] [place], [place] [address] Physician Ophthalmology 01/21/22 Neil [place] MD 500 [place] [address] Dermatology 02/24/22 Diana Desir, [facility] [address] [place] [address] Assigned MTM Pharmacist 04/07/22 Livan Sharif MD [address] [facility]00 [place] 415715 Cardiovascular Disease 05/14/22 Catherine Cm MD [address] [place] [address] [place] 312095 Cardiovascular Disease 07/21/22 Valery Veronica, PAUcheC 909 [place], [place] 319475 Physician Protection Chief Industrial Plant Dermatology 07/21/22 Brea Quinn APRN PEN MAKER 500 [place] [address] Nurse Practitioner Dermatology 09/21/22 Brea Quinn APRN PEN MAKER 6401 [place] [address] Assigned Surgical Provider 10/09/22 05/01/24 [place] [address] [place] [address] Assigned Musculoskeletal Provider 10/09/22 05/01/24 Alfonso Renteria MD [address] [facility] [address] [place] [address] Assigned Neuroscience Provider 04/02/23 Lomeli Radha ARLENE Stovall PEN MAKER [address] [place], [place] [address] Assigned Heart and Vascular Provider 05/28/23 [place]ena David OD [address] [place] [address] MD Ophthalmology 06/15/23 Esha Grimm PA-C [address] [place] [phone] Assigned PCP 07/16/23 Valery Veronica PA-C [address] [place] [address] 566705 Physician Protection Chief Industrial Plant Dermatology 09/19/23 Rey Tay MD [address] [place] [address] 580225 Gastroenterology 09/20/23 Rocky Zepeda DO [address] [place] [address] 695195 Physician Gastroenterology 09/20/23 Philip Dumont MD [address] [place] [address] 843975 Physician Ophthalmology 09/22/23 Meredith Carrera PA-C [address] [place] [address] Assigned Gastroenterology Provider 11/01/23 Neil Kent MD [address] [address] Dermatology 11/02/23 [place] [address] [address] Neurological Surgery 12/26/23 Audrey Waite PA-C [address] [place] [address] Physician Protection Chief Industrial Plant Dermatology 02/28/24 Valery Veronica PA-C [address]900 [address] [place] [address] Physician Protection Chief Industrial Plant Dermatology 04/10/24 Herminia Hatch MD [facility]5 [place], [place] 56458[address] Assigned Rheumatology Provider 07/02/24 documented as of this encounter
--- OUTSIDE RECORDS SUMMARY | 2024-07-22 20:41 | XMS_ITS | Encounter Summary ---
Author Organization [facility] Address [address] [place] [address] Care Team Providers Care Foreign Diplomat Name Role Phone Diana Desir [facility] Unavailable Rain Galaviz PA-C Unavailable Tavia Wyatt MD Unavailable Erica Farrell APRN MACHINE SPRAYER Unavailable Rich Barrett MD Unavailable [phone] Neil Kent MD Unavailable Diana Desir [facility] Unavailable Livan Sharif MD Unavailable Catherine Cm MD Unavailable + Valery Veronica PA-C Unavailable Brea Quinn CO OP MACHINE SPRAYER Unavailable [phone] Brea Quinn CO OP MACHINE SPRAYER Unavailable Jose Francisco Johnson MD Unavailable Alfonso Renteria MD Unavailable [phone] Esha Grimm PA-C Primary Care Provider Radha Lomeli APRN MACHINE SPRAYER Unavailable Jelena David OD Unavailable Pao Joseph RN Unavailable Unavailable Esha Grimm PA-C Unavailable [phone] Valery Veronica PA-C Unavailable [phone] Rey Tay MD Unavailable Rocky Zepeda DO Unavailable Philip Dumont MD Unavailable [phone] Meredith Carrera PA-C Unavailable [phone] Neil Kent MD Unavailable Juan Pablo Emmanuel MD Unavailable [phone] Audrey Waite PA-C Unavailable [phone] Valery Veronica PA-C Unavailable Herminia Hatch MD Unavailable Encounter Details Date Type Department Care Team (Late st Contact Info) Description 10/25/2023 [facility] Adv[facility] [address] [address] [place] Social History Tobacco [...] often do you attend [facility] or [facility] services? 1 to 4 times [...] exercise at this level? 30 min 03/10/2023 [place] Depression Scale Answer Date Recorded [place] Depression Score 5 01/14/2021 Last EPDS Self [...] PM CDT Legal Sex Female 4:13 AM SURVEYING CREW RODMAN Gender Identity Female 03/02/2021 5:45 PM CDT Sexual Orientation Straight 02/28/2020 12 :51 AM CDT documented as of this encounter Plan of Treatment Upcoming Encounters Date Type Department Care Team (Late st Contact Info) Description 10/23/2024 9:30 AM CDT Office Visit [facility] Neurology [address], [address] [place] [address] [place] [address] [place] [address] Johnny Penn MD [address] [place] 795425 11/28/2024 7:45 AM CDT Virtual Visit [facility] [address] 4th [place] [address] Meredith Carrera PAUcheC [address]09 [place] [address] documented as of this encounter Visit Diagnoses Not on filedocumented in this encounter Additional Health Concerns Infection Onset Date Last Indicated Resolved Time Rule Out COVID-19 12/26/2023 12/26/2023 12/26/2023 9:50 AM CDT Rule Out COVID-19 04/09/2024 04/09/2024 04/10/2024 6:48 PM CDT Assessment Noted Time PHQ-9 Depression Total Score: 4 06/20/20 8:40 AM SURVEYING CREW RODMAN documented as of this encounter Care Teams Foreign Diplomat Relationship Specialty Start Date End Date Esha Grimm PA-C [address] [place] [address] PCP - General Family Medicine 05/04/23 Diana Desir, [facility] [address] [place] [address] Pharmacist Pharmacist 04/17/21 Rain Galaviz PA-C [address] [place] [address] [address] [place] [address] Physician Gem Carver Dermatology 04/28/21 Tavia Wyatt MD [address] [place] [address] [address] [place] [address] Dermatology 07/14/21 Erica Farrell APRN MACHINE SPRAYER [address] [id number] [place] [address] Nurse Practitioner Cardiovascular Disease 09/09/21 Rich Barrett MD [address] [place] [address] Physician Ophthalmology 01/21/22 Neil Kent MD [address] [place], [place] [address]255 Dermatology 02/24/22 Diana Desir, [facility] [address] [place] [address] Assigned MTM Pharmacist 04/07/22 Livan Sharif MD [address] 102675 Cardiovascular Disease 05/14/22 Catherine Cm MD [address] 489735 Cardiovascular Disease 07/21/22 Valery Veronica, PA-C [address]09 [place], [place] 616935 Physician Gem [place] Dermatology 07/21/22 Brea Quinn APRN MACHINE SPRAYER 500 [place] [address] Nurse Practitioner Dermatology 09/21/22 Brea Quinn APRN MACHINE SPRAYER [address] [place] [address] PATRE[facility]ACED [facility] [address]22 Assigned Surgical Provider 10/09/22 05/01/24 [place] [address] 815097 Assigned Musculoskeletal Provider 10/09/22 05/01/24 Alfonso Renteria MD [address] [place] [address] Assigned Neuroscience Provider 04/02/23 Radha Lomeli APRN MACHINE SPRAYER 6405 [facility] [address] [place] [address] Assigned Heart and Vascular Provider 05/28/23 Jelena David OD [address] [facility] [place] [address] Ophthalmology 06/15/23 Pao Joseph, VJ Personal Advocate & Liaison (PAL) Nurse 08/01/23 11/07/23 Esha Grimm PA-C [address] [place] [address] Assigned PCP 07/16/23 Valery Veronica PA-C [address] [place] [address] 651685 Physician Gem Car[place] Dermatology 09/19/23 Rey Tay MD [address] [place] [address] 403635 Gastroenterology 09/20/23 Rocky Zepeda DO [address] [place] [address] 642435 Physician Gastroenterology 09/20/23 Philip Dumont MD [address] [place] [address] Physician Ophthalmology 09/22/23 Meredith Carrera PA-C [address] [place] [address] Assigned Gastroenterology Provider 11/01/23 Neil Kent MD [address] [address] Dermatology 11/02/23 [place] [address] [address] Neurological Surgery 12/26/23 Audrey Waite PA-C [address] [place] [address] Physician Gem Carver Dermatology 02/28/24 Valery Veronica PA-C 609279 [place], [place] [address] Physician Gem Carver Dermatology 04/10/24 Herminia Hatch MD [facility]5 [place], [place] 46[address] Assigned Rheumatology Provider 07/02/24 documented as of this encounter
--- OUTSIDE RECORDS SUMMARY | 2024-07-22 20:41 | XMS_ITS | Encounter Summary ---
Author Organization [facility] Address [address] [place] [address] Care Team Providers Care Urogynecology Physician Name Role Phone Diana Desir [facility] Unavailable Rain Galaviz PA-C Unavailable Tavia Wyatt MD Unavailable Erica Farrell APRN RADIOLOGY TEACHER Unavailable Rich Barrett MD Unavailable [phone] Neil Kent MD Unavailable Diana Desir [facility] Unavailable Livan Sharif MD Unavailable Catherine Cm MD Unavailable + Valery Veronica PA-C Unavailable Brea Quinn SYSTEMS PROGRAMMER ANALYST RADIOLOGY TEACHER Unavailable Brea Quinn SYSTEMS PROGRAMMER ANALYST RADIOLOGY TEACHER Unavailable Jose Francisco Johnson MD Unavailable Alfonso Renteria MD Unavailable [phone] Esha Grimm PA-C Primary Care Provider Lomeli, Radha E SYSTEMS PROGRAMMER ANALYST RADIOLOGY TEACHER Unavailable [phone] Jelena David OD Unavailable Esha Grimm PA-C Unavailable [phone] Valery Veronica PA-C Unavailable [phone] Rey Tay MD Unavailable Rocky Zepeda DO Unavailable Philip Dumont MD Unavailable [phone] Meredith Carrera PA-C Unavailable [phone] Neil Kent MD Unavailable Juan Pablo Emmanuel MD Unavailable Audrey Waite PA-C Unavailable [phone] Valery Veronica PA-C Unavailable [phone] Herminia Hatch MD Unavailable Encounter Details Date Type Department Care Team (Late st Contact Info) Description 11/15/2023 [facility] Medical Advice [address] [address] Vivian Grant Social History Tobacco [...] PM CDT Legal Sex Female 4:13 AM PRENATAL NURSE Gender Identity Female 03/02/2021 5:45 PM CDT Sexual Orientation Straight 02/28/2020 12 :51 AM CDT documented as of this encounter Plan of Treatment Upcoming Encounters Date Type Department Care Team (Late st Contact Info) Description 10/23/2024 9:30 AM CDT Office Visit [facility] Neurology [address] [place] [address] [place] [address] [place], [place] 16[address] Johnny Penn MD 10[address] [place], [place] 2623[address] 11/28/2024 7:45 AM CDT Virtual Visit [facility] Gastroenterology Clinic [address] 4th [place] [address] Meredith Carrera PA-C [address] [place] [address] documented as of this encounter Visit Diagnoses Not on filedocumented in this encounter Additional Health Concerns Infection Onset Date Last Indicated Resolved Time Rule Out COVID-19 12/26/2023 12/26/2023 12/26/2023 9:50 AM CDT Rule Out COVID-19 04/09/2024 04/09/2024 04/10/2024 6:48 PM CDT Assessment Noted Time PHQ-9 Depression Total Score: 4 06/20/20 23 8:40 AM PRENATAL NURSE documented as of this encounter Care Teams Urogynecology Physician Relationship Specialty Start Date End Date Esha Grimm PA-C [address] [place] [phone] PCP - General Family Medicine 05/04/23 Diana Desir, [facility] [address] [place] [address] Pharmacist Pharmacist 04/17/21 Rain Galaviz PA-C [address] [place] [address] [address] [place] [address] Physician Plate Maker Zinc Dermatology 04/28/21 Tavia Wyatt MD [address] [place] [address] [address] [place] [facility] [place] [address] Dermatology 07/14/21 Erica Farrell APRN RADIOLOGY TEACHER [address] [facility] [address] [place] [address] Nurse Practitioner Cardiovascular Disease 09/09/21 Rich Barrett MD 6 [facility] 9A [place] [address] Physician Ophthalmology 01/21/22 Neil Kent MD 500 [place], [place] 8[address]315 Dermatology 02/24/22 Diana Desir, [facility] [address] [place], [place] 549746 Assigned MTM Pharmacist 04/07/22 Livan Sharif MD [address] [place] 8[address]305 Cardiovascular Disease 05/14/22 Catherine Cm MD [address] [facility] [place] 000465 Cardiovascular Disease 07/21/22 Valery Veronica, PA-C 9 [place], [place] [address] Physician Plate Maker Zinc Dermatology 07/21/22 Brea Quinn APRN RADIOLOGY TEACHER 500 [place], [place] 253805 Nurse Practitioner Dermatology 09/21/22 Brea Quinn APRN RADIOLOGY TEACHER [facility] [facility] [place] [address]92 Assigned Surgical Provider 10/09/22 05/01/24 [place] [address] [place], [place] 377897 Assigned Musculoskeletal Provider 10/09/22 05/01/24 Alfonso Renteria MD [address] [facility] [address] 200 [place] [address] Assigned Neuroscience Provider 04/02/23 Radha Lomeli APRN RADIOLOGY TEACHER 6405 [facility] [address] [place], [place] 220605 Assigned Heart and Vascular Provider 05/28/23 Jelena David OD [address] [facility] [address] [place] [id number] MD Ophthalmology 06/15/23 Esha Grimm PA-C [address] [place] [address] Assigned PCP 07/16/23 Valery Veronica PA-C [address] [place] [address] 967545 Physician Plate Maker Zinc Dermatology 09/19/23 Rey Tay MD 9 [place], [place] 5[address]35 Gastroenterology 09/20/23 Rocky Zepeda DO [address] [place] [address]175 Physician Gastroenterology 09/20/23 Philip Dumont MD [address] [place] [address] 686945 Physician Ophthalmology 09/22/23 Meredith Carrera PA-C 909 [place] [address] Assigned Gastroenterology Provider 11/01/23 Neil Kent MD [address] [place] [address] Dermatology 11/02/23 [place] [address] [address] Neurological Surgery 12/26/23 Audrey Waite PA-C 500 [place] [address] Physician Plate Maker Zinc Dermatology 02/28/24 Valery Veronica PA-C [address] [place] [address] Physician Plate Maker Zinc Dermatology 04/10/24 Herminia Hatch MD [facility]5 [place] [address] Assigned Rheumatology Provider 07/02/24 documented as of this encounter
--- OUTSIDE RECORDS SUMMARY | 2024-07-22 20:42 | XMS_ITS | Encounter Summary ---
Author Organization [facility] Address [address] [place] [address] Care Team Providers Care Balloon Design Printer Name Role Phone Diana Desir [facility] Unavailable Rain Galaviz PA-C Unavailable Tavia Wyatt MD Unavailable Erica Farrell APRN LOGISTICS OPERATIONS MANAGER Unavailable Rich Barrett MD Unavailable [phone] Neil Kent MD Unavailable Diana Desir [facility] Unavailable Livan Sharif MD Unavailable Catherine Cm MD Unavailable + Valery Veronica PA-C Unavailable Brea Quinn AUTO SERVICE REPRESENTATIVE LOGISTICS OPERATIONS MANAGER Unavailable [phone] Brea Quinn AUTO SERVICE REPRESENTATIVE LOGISTICS OPERATIONS MANAGER Unavailable [phone] Jose Francisco Johnson MD Unavailable Alfonso Renteria MD Unavailable [phone] Esha Grimm PA-C Primary Care Provider [phone] Radha Lomeli APRN LOGISTICS OPERATIONS MANAGER Unavailable Jelena David OD Unavailable Pao Joseph RN Unavailable Unavailable Esha Grimm PA-C Unavailable Valery Veronica PA-C Unavailable Rey Tay MD Unavailable Rocky Zepeda DO Unavailable Philip Dumont MD Unavailable [phone] Meredith Carrera PA-C Unavailable [phone] Neil Kent MD Unavailable Juan Pablo Emmanuel MD Unavailable [phone] Audrey Waite PA-C Unavailable [phone] Valery Veronica PA-C Unavailable Herminia Hatch MD Unavailable Encounter Details Date Type Department Care Team (Late st Contact Info) Description 08/04/2023 [facility] [address] [address] [facility] [address] [place] [address] Social History Tobacco Use Types Packs/Day Years [...] you attend [facility] or [facility] services? 1 to 4 times [...] [facility] - Occupational Stress Questionnaire Answer Date [...] exercise at this level? 30 min 03/10/2023 [place] Depression Scale Answer Date Recorded [place] Depression Score 5 01/14/2021 Last EPDS Self [...] CDT Legal Sex Female 4:13 AM MANAGER CHILD Gender Identity Female 03/02/2021 5:45 PM CDT Sexual Orientation Straight 02/28/2020 12 :51 AM CDT documented as of this encounter Plan of Treatment Upcoming Encounters Date Type Department Care Team (Late st Contact Info) Description 10/23/2024 9:30 AM CDT Office Visit [facility] Neurology [address], [address] [place] [address] [place] [address] [address] [place] [address] Johnny Penn MD [address] [place] [address] 11/28/2024 7:45 AM CDT Virtual Visit [facility] Gastroenterology Clinic [address] [place] [address] Meredith Carrera PA-C [address] [place] [address] documented as of this encounter Visit Diagnoses Not on filedocumented in this encounter Additional Health Concerns Infection Onset Date Last Indicated Resolved Time Rule Out COVID-19 12/26/2023 12/26/2023 12/26/2023 9:50 AM CDT Rule Out COVID-19 04/09/2024 04/09/2024 04/10/2024 6:48 PM CDT Assessment Noted Time PHQ-9 Depression Total Score: 4 06/20/20 23 8:40 AM MANAGER CHILD documented as of this encounter Care Teams Balloon Design Printer Relationship Specialty Start Date End Date Esha Grimm PA-C [address] [place] [address] PCP - General Family Medicine 05/04/23 Diana Desir, [facility] [address] [place], [place] [address] Pharmacist Pharmacist 04/17/21 Rain Galaviz PA-C [address] [place] [place] [address] [place] [address] Physician Firefighter Marine Dermatology 04/28/21 Tavia Wyatt MD [address] [place] [place] [address] [place] [address] Dermatology 07/14/21 Erica Farrell APRN LOGISTICS OPERATIONS MANAGER 6405 [facility] [address] [place] [address] Nurse Practitioner Cardiovascular Disease 09/09/21 Rich Barrett MD 516 [facility], CLINIC 9A [place], [place] [address] Physician Ophthalmology 01/21/22 Neil Kent MD 500 [place], [place] [address] Dermatology 02/24/22 Diana Desir, [facility] [address] [place], [place] 640196 Assigned MTM Pharmacist 04/07/22 Livan Sharif MD [address] [place] 8[address]205 Cardiovascular Disease 05/14/22 Catherine Cm MD [address] [facility] [address] [place] 264155 Cardiovascular Disease 07/21/22 Valery Veronica, PA-C 909 [place], [place] 6[address] Physician Firefighter Marine Dermatology 07/21/22 Brea Quinn APRN LOGISTICS OPERATIONS MANAGER 500 [place], [place] 668925 Nurse Practitioner Dermatology 09/21/22 Brea Quinn APRN LOGISTICS OPERATIONS MANAGER 6401 [facility] [place] [address] Assigned Surgical Provider 10/09/22 05/01/24 [place] [address] [address] [place] [address] Assigned Musculoskeletal Provider 10/09/22 05/01/24 Alfonso Renteria MD [address] [facility] 200 [place], [place] [address] Assigned Neuroscience Provider 04/02/23 Radha Lomeli, ARL[place] LOGISTICS OPERATIONS MANAGER 6405 [facility] [address] [place] [address]15 Assigned Heart and Vascular Provider 05/28/23 Jelena David OD [address] [facility] [place] [address] Ophthalmology 06/15/23 Pao Joseph, VJ Personal Advocate & Liaison (PAL) Nurse 08/01/23 11/07/23 Esha Grimm PA-C [address] [place] [address] Assigned PCP 07/16/23 Valery Veronica PA-C [address] [place] [address]645 Physician Firefighter Marine Dermatology 09/19/23 Rey Tay MD [address] [place] [address] 719465 Gastroenterology 09/20/23 Rocky Zepeda DO [address] [place] [address] 388955 Physician Gastroenterology 09/20/23 Philip Dumont MD 516 [place] [address] Physician Ophthalmology 09/22/23 Meredith Carrera PA-C [address] [place] [address] Assigned Gastroenterology Provider 11/01/23 Neil Kent MD [address] 708070 MD Dermatology 11/02/23 [place] [address] 727937 Neurological Surgery 12/26/23 Audrey Waite PA-C [address] [place] [address] 794575 Physician Firefighter Marine Dermatology 02/28/24 Valery Veronica PA-C 379488 99 [place] [address] Physician Firefighter Marine Dermatology 04/10/24 Herminia Hatch MD 1875 [place] [address] Assigned Rheumatology Provider 07/02/24 documented as of this encounter
--- OUTSIDE RECORDS SUMMARY | 2024-07-22 20:42 | XMS_ITS | Encounter Summary ---
Author Organization [place] Address [address] [place] [address] Care Team Providers Care Sail Cutter Name Role Phone Diana Desir [facility] Unavailable Rain Galaviz PA-C Unavailable Tavia Wyatt MD Unavailable Erica Farrell APRN USER EXPERIENCE DEVELOPER Unavailable Rich Barrett MD Unavailable [phone] Neil Kent MD Unavailable Diana Desir [facility] Unavailable Livan Sharif MD Unavailable Catherine Cm MD Unavailable + Valery Veronica-C Unavailable Brea Quinn INVENTORY CONTROL COORDINATOR USER EXPERIENCE DEVELOPER Unavailable Brea Quinn INVENTORY CONTROL COORDINATOR USER EXPERIENCE DEVELOPER Unavailable Jose Francisco Johnson MD Unavailable Sydnie Martinez RN Unavailable Unavailable Alfonso Renteria MD Unavailable [phone] Esha Grimm PA-C Primary Care Provider Radha Lomeli APRN USER EXPERIENCE DEVELOPER Unavailable Jelena David OD Unavailable Pao Joseph RN Unavailable Unavailable Esha Grimm PA-C Unavailable [phone] Valery Veronica PA-C Unavailable [phone] Rey Tay MD Unavailable Rocky Zepeda DO Unavailable Philip Dumont MD Unavailable [phone] Meredith Carrera PA-C Unavailable [phone] Neil Kent MD Unavailable Juan Pablo Emmanuel MD Unavailable Audrey Waite PA-C Unavailable Valery Veronica PA-C Unavailable Herminia Hatch MD Unavailable Encounter Details Date Type Department Care Team (Late st Contact Info) Description 07/29/2023 [facility] Medical Advice [address] [address] Pao Joseph, RN Social History [...] How often do you attend [facility] or jain services? 1 to 4 times [...] Date Recorded PHQ-2 Score 0 06/20/2023 [facility] [place] [facility] Occupat ional Health - Occupational Stress [...] exercise at this level? 30 min 03/10/2023 [place] Depression Scale Answer Date Recorded [place] Depression Score 5 01/14/2021 Last EPDS Self [...] PM CDT Legal Sex Female 4:13 AM PSYCHOLOGIST PRIVATE PRACTICE Gender Identity Female 03/02/2021 5:45 PM CDT Sexual Orientation Straight 02/28/2020 12 :51 AM CDT documented as of this encounter Plan of Treatment Upcoming Encounters Date Type Department Care Team (Late st Contact Info) Description 10/23/2024 9:30 AM CDT Office Visit [facility] Neurology [address], [address] [place] [address] [place] [address] [address] [place] 9[address] Johnny Penn MD [address] [place] [address] 11/28/2024 7:45 AM CDT Virtual Visit [facility] [address] 4th [place] [address] Meredith Carrera PAUcheC [address]09 [place] [address] documented as of this encounter Visit Diagnoses Not on filedocumented in this encounter Additional Health Concerns Infection Onset Date Last Indicated Resolved Time Rule Out COVID-19 12/26/2023 12/26/2023 12/26/2023 9:50 AM CDT Rule Out COVID-19 04/09/2024 04/09/2024 04/10/2024 6:48 PM CDT Assessment Noted Time PHQ-9 Depression Total Score: 4 06/20/20 8:40 AM PSYCHOLOGIST PRIVATE PRACTICE documented as of this encounter Care Teams Sail Cutter Relationship Specialty Start Date End Date Esha Grimm PA-C [address] [place] [address] PCP - General Family Medicine 05/04/23 Diana Desir, [facility] [address] [place] [address] Pharmacist Pharmacist 04/17/21 Rain Galaviz PA-C [address] [place] [address] [address] [place] [address] Physician Solar Fabrication Technician Dermatology 04/28/21 Tavia Wyatt MD [address] [place] [address] [address] [place] [address] Dermatology 07/14/21 Erica Farrell APRN USER EXPERIENCE DEVELOPER [address] [facility] [address] [place] [address] Nurse Practitioner Cardiovascular Disease 09/09/21 Rich Barrett MD [address], [place] [address] Physician Ophthalmology 01/21/22 Neil Kent MD 500 [place], [place] 569605 Dermatology 02/24/22 Diana Desir, [facility] [address] [place] [address] Assigned MTM Pharmacist 04/07/22 Livan Sharif MD [address] 006905 Cardiovascular Disease 05/14/22 Catherine Cm MD [address] 099155 Cardiovascular Disease 07/21/22 Valery Veronica, PA-C 909 [place], [place] 168415 Physician Solar Fabrication Technician Dermatology 07/21/22 Brea Quinn APRN USER EXPERIENCE DEVELOPER 500 [place] [address] Nurse Practitioner Dermatology 09/21/22 Brea Quinn APRN USER EXPERIENCE DEVELOPER [address] [place] [address] [place] 408782 Assigned Surgical Provider 10/09/22 05/01/24 [place] [address] 245449 Assigned Musculoskeletal Provider 10/09/22 05/01/24 Sydnie Martinez, VJ Personal Advocate & Liaison (PAL) Family Medicine 03/28/23 07/31/23 Alfonso Renteria MD 57[address] [facility] [address] 200 [place] [address] Assigned Neuroscience Provider 04/02/23 Radha Lomeli, INVENTORY CONTROL COORDINATOR USER EXPERIENCE DEVELOPER [address] [facility] [address] [place], [place] 152585 Assigned Heart and Vascular Provider 05/28/23 Jelena David OD [address] [facility] [address] Ophthalmology 06/15/23 Pao Joseph, VJ Personal Advocate & Liaison (PAL) Nurse 08/01/23 11/07/23 Esha Grimm PA-C [address] [place] [phone] Assigned PCP 07/16/23 Valery Veronica PA-C [address] [place] [address] Physician Solar Fabrication Technician Dermatology 09/19/23 Rey Tay MD [address] [place] [address] 758395 Gastroenterology 09/20/23 Rocky Zepeda DO [address] [place] [address] 470295 Physician Gastroenterology 09/20/23 Philip Dumont MD [address] [place] [address] Physician Ophthalmology 09/22/23 Meredith Carrera PA-C 909 [place], [place] 162905 Assigned Gastroenterology Provider 11/01/23 Neil Kent MD [address] [address] MD Dermatology 11/02/23 [place] [address] 149497 Neurological Surgery 12/26/23 Audrey Waite PA-C 500 [place], [place] 855885 Physician Solar Fabrication Technician Dermatology 02/28/24 Valery Veronica PA-C [address] [place] [address] Physician Solar Fabrication Technician Dermatology 04/10/24 Herminia Hatch MD [facility]5 [place] [address] Assigned Rheumatology Provider 07/02/24 documented as of this encounter
--- OUTSIDE RECORDS SUMMARY | 2024-07-22 20:42 | XMS_ITS | Encounter Summary ---
Author Organization [place] Address [address] [place] [address] Care Team Providers Care Interior Surface Insulation Worker Name Role Phone Diana Desir [facility] Unavailable Rain Galaviz PA-C Unavailable Tavia Wyatt MD Unavailable Erica Farrell APRN PROFESSOR OF VEGETABLE SCIENCE Unavailable Rich Barrett MD Unavailable [phone] Neil Kent MD Unavailable Diana Desir [facility] Unavailable Livan Sharif MD Unavailable Catherine Cm MD Unavailable + Valery Veronica PA-C Unavailable Brea Quinn ADMISSIONS SUPERVISOR PROFESSOR OF VEGETABLE SCIENCE Unavailable Brea Quinn ADMISSIONS SUPERVISOR PROFESSOR OF VEGETABLE SCIENCE Unavailable Jose Francisco Johnson MD Unavailable Alfonso Renteria MD Unavailable [phone] Esha Grimm PA-C Primary Care Provider Radha Lomeli APRN PROFESSOR OF VEGETABLE SCIENCE Unavailable Jelena David OD Unavailable [phone] Pao Joseph RN Unavailable Unavailable Esha Grimm PA-C Unavailable [phone] Valery Veronica PA-C Unavailable [phone] Rey Tay MD Unavailable Rocky Zepeda DO Unavailable Philip Dumont MD Unavailable [phone] Meredith Carrera PA-C Unavailable [phone] Neil Kent MD Unavailable Juan Pablo Emmanuel MD Unavailable [phone] Audrey Waite PA-C Unavailable [phone] Valery Veronica PA-C Unavailable [phone] Herminia Hatch MD Unavailable Encounter Details Date Type Department Care Team (Late st Contact Info) Description 08/25/2023 [facility] [place] [facility] [address] [address] Marija Polanco RN Social History [...] week 03/10/2023 How often do you attend [facility] or nondenominational services? 1 to 4 times [...] 0 06/20/2023 [facility] of Occupat ional Health [...] exercise at this level? 30 min 03/10/2023 [place] Depression Scale Answer Date Recorded [place] Depression Score 5 01/14/2021 Last EPDS Self [...] PM CDT Legal Sex Female 4:13 AM WALLPAPER INSTALLER Gender Identity Female 03/02/2021 5:45 PM CDT Sexual Orientation Straight 02/28/2020 12 :51 AM CDT documented as of this encounter Plan of Treatment Upcoming Encounters Date Type Department Care Team (Late st Contact Info) Description 10/23/2024 9:30 AM CDT Office Visit [facility] Neurology [address], [address] [place] [address] [place] [address] [place] 814[address] Johnny Penn MD [address] [place] [address] 11/28/2024 7:45 AM CDT Virtual Visit [facility] [address] 4th [place] [address] Meredith Carrera PAUcheC 909 [place] [address] documented as of this encounter Visit Diagnoses Not on filedocumented in this encounter Additional Health Concerns Infection Onset Date Last Indicated Resolved Time Rule Out COVID-19 12/26/2023 12/26/2023 12/26/2023 9:50 AM CDT Rule Out COVID-19 04/09/2024 04/09/2024 04/10/2024 6:48 PM CDT Assessment Noted Time PHQ-9 Depression Total Score: 4 06/20/20 8:40 AM WALLPAPER INSTALLER documented as of this encounter Care Teams Interior Surface Insulation Worker Relationship Specialty Start Date End Date Esha Grimm PA-C [address] [place] [address] PCP - General Family Medicine 05/04/23 Diana Desir, [facility] [address] [place] [address] Pharmacist Pharmacist 04/17/21 Rain Galaviz PA-C [address] [place] [address] [address] [place] [address] Physician Program Director Group Work Dermatology 04/28/21 Tavia Wyatt MD [address] [place] [address] [address] [place] [address] Dermatology 07/14/21 Erica Farrell APRN PROFESSOR OF VEGETABLE SCIENCE [address] [place] 9232100 [place] [address] Nurse Practitioner Cardiovascular Disease 09/09/21 Rich Barrett MD [address] [place] 3[address] Physician Ophthalmology 01/21/22 Neil Kent MD 500 [place], [place] 215345 Dermatology 02/24/22 Diana Desir, [facility] 30[address] [place] [address] Assigned MTM Pharmacist 04/07/22 Livan Sharif MD [address] 652195 Cardiovascular Disease 05/14/22 Catherine Cm MD [address] 834975 Cardiovascular Disease 07/21/22 Valery Veronica, PA-C [address]09 [place], [place] 919235 Physician Program Director Group Work Dermatology 07/21/22 Brea Quinn APRN PROFESSOR OF VEGETABLE SCIENCE 500 [place] [address] Nurse Practitioner Dermatology 09/21/22 Brea Quinn APRN PROFESSOR OF VEGETABLE SCIENCE [address] [place] [address] [facility] [address]64862 Assigned Surgical Provider 10/09/22 05/01/24 [place] [address] 047777 Assigned Musculoskeletal Provider 10/09/22 05/01/24 Alfonso Renteria MD [address] [place] [address] Assigned Neuroscience Provider 04/02/23 Radha Lomeli APRN PROFESSOR OF VEGETABLE SCIENCE 6[address] [facility] [address] [place] [address] Assigned Heart and Vascular Provider 05/28/23 Jelena David OD [address] [facility] [place] [address] Ophthalmology 06/15/23 Pao Joseph, VJ Personal Advocate & Liaison (PAL) Nurse 08/01/23 11/07/23 Esha Grimm PA-C [address] [place] [address] Assigned PCP 07/16/23 Valery Veronica PA-C [address] [place] [address] 443825 Physician Program Director Group Work Dermatology 09/19/23 Rey Tay MD [address] [place] [address] 742625 Gastroenterology 09/20/23 Rocky Zepeda DO [address] [place] [address] 408885 Physician Gastroenterology 09/20/23 Philip Dumont MD [address] [place] [address] Physician Ophthalmology 09/22/23 Meredith Carrera PA-C [address] [place] [address] Assigned Gastroenterology Provider 11/01/23 Neil Kent MD [address] [address] Dermatology 11/02/23 [place] [address] [facility] [address] [address] [address] Neurological Surgery 12/26/23 Audrey Waite PA-C [address] [place] [address] Physician Program Director Group Work Dermatology 02/28/24 Valery Veronica PA-C 493279 [place], [place] [address] Physician Program Director Group Work Dermatology 04/10/24 Herminia Hatch MD [facility]5 [place], [place] 22[address] Assigned Rheumatology Provider 07/02/24 documented as of this encounter
--- OUTSIDE RECORDS SUMMARY | 2024-07-22 20:42 | XMS_ITS | Encounter Summary ---
Author Organization [place] Address [address] [place] [address] Care Team Providers Care Line Service Attendant Name Role Phone Diana Desir [facility] Unavailable [phone] Rain Galaviz PA-C Unavailable Tavia Wyatt MD Unavailable Erica Farrell APRN REGIONAL EXTENSION SERVICE SPECIALIST Unavailable Rich Barrett MD Unavailable [phone] Neil Kent MD Unavailable Diana Desir [facility] Unavailable Livna Sharif MD Unavailable Catherine Cm MD Unavailable + Valery Veronica PA-C Unavailable Brea Quinn AUTO SELF SERVICE STATION ATTENDANT REGIONAL EXTENSION SERVICE SPECIALIST Unavailable Brea Quinn AUTO SELF SERVICE STATION ATTENDANT REGIONAL EXTENSION SERVICE SPECIALIST Unavailable [phone] Jose Francisco Johnson MD Unavailable Alfonso Renteria MD Unavailable [phone] Esha Grimm PA-C Primary Care Provider Radha Lomeli APRN REGIONAL EXTENSION SERVICE SPECIALIST Unavailable Jelena David OD Unavailable [phone] Pao Joseph RN Unavailable Unavailable Esha Grimm PA-C Unavailable [phone] Valery Veronica PA-C Unavailable Rey Tay MD Unavailable Rocky Zepeda DO Unavailable Philip Dumont MD Unavailable [phone] Meredith Carrera PA-C Unavailable [phone] Neil Kent MD Unavailable Juan Pablo Emmanuel MD Unavailable Audrey Waite PA-C Unavailable [phone] Valery Veronica PA-C Unavailable Herminia Hatch MD Unavailable Reason for Visit * Reason Onset Date Comments Outreach 08/01/2023 Encounter Details Date Type Department Care Team (Late st Contact Info) Description 08/01/2023 [facility] [facility] [address] [place] [address] Esha Grimm PA-C [id number] [place] [address] Outreach Social History Tobacco Use Types [...] Recorded PHQ-2 Score 0 06/20/2023 [facility] - Occupational Stress [...] exercise at this level? 30 min 03/10/2023 [place] Depression Scale Answer Date Recorded [place] Depression Score 5 01/14/2021 Last EPDS Self [...] PM CDT Legal Sex Female 4:13 AM SEARCH STRATEGIST Gender Identity Female 03/02/2021 5:45 PM CDT Sexual Orientation Straight 02/28/2020 12 :51 AM CDT documented as of this encounter Miscellaneous Notes * Telephone Encounter - Pao Joseph RN - 08/01/2023 2:31 PM CST Esha Grimm PA-C- ANGEL LUIS. See pt's Mychart messages. Routed to PCP Pao Marcos RN PAL (Patient Advocate Liaison) [facility] CH STRATEGIST documented in this encounter Plan of Treatment Upcoming Encounters Date Type Department Care Team (Late st Contact Info) Description 10/23/2024 9:30 AM CDT Office Visit [facility] Neurology [facility] - [address], [address] [place] [phone] [place] [address] [place], [place] [phone] Johnny Penn MD [address] [place], [place] [address] 11/28/2024 7:45 AM CDT Virtual Visit [facility] Gastroenterology Clinic [address] 4th [place] [address] Meredith Carrera PA-C [address] [place] [address]1025 documented as of this encounter Visit Diagnoses Not on filedocumented in this encounter Additional Health Concerns Infection Onset Date Last Indicated Resolved Time Rule Out COVID-19 12/26/2023 12/26/2023 12/26/2023 9:50 AM CDT Rule Out COVID-19 04/09/2024 04/09/2024 04/10/2024 6:48 PM CDT Assessment Noted Time PHQ-9 Depression Total Score: 4 06/20/20 23 8:40 AM SEARCH STRATEGIST documented as of this encounter Care Teams Line Service Attendant Relationship Specialty Start Date End Date Esha Grimm PA-C [address] [place] [phone] PCP - General Family Medicine 05/04/23 Diana Desir, [facility] [address] [place], [place] [address] Pharmacist Pharmacist 04/17/21 Rain Galaviz PA-C [address] [place] [address] [address] [facility] [place] [phone] Physician Jewel Setter Dermatology 04/28/21 Tavia Wyatt MD [address] [place] [address] DR [address] [facility] [place] [phone] Dermatology 07/14/21 Erica Farrell APRN REGIONAL EXTENSION SERVICE SPECIALIST [address] [place], [place] [address] Nurse Practitioner Cardiovascular Disease 09/09/21 Rich Barrett MD [address] 0209[address] Physician Ophthalmology 01/21/22 Neil Kent MD [address] [place] [address] Dermatology 02/24/22 Diana Desir, [facility] 30[address] [place], [place] 334826 Assigned [place] Pharmacist 04/07/22 Livan Sharif MD [address] [place] [address] [place] 266815 Cardiovascular Disease 05/14/22 Catherine Cm MD [address] [place] [address] [place] 821805 Cardiovascular Disease 07/21/22 Valery Veronica, PA-C [address] [place] [address] 797715 Physician Jewel Setter Dermatology 07/21/22 Brea Quinn APRN REGIONAL EXTENSION SERVICE SPECIALIST 500 [place], [place] 788595 Nurse Practitioner Dermatology 09/21/22 Brea Quinn APRN REGIONAL EXTENSION SERVICE SPECIALIST 6401 [place] [address] Assigned Surgical Provider 10/09/22 05/01/24 [place] [address] [place] [address] [address] Assigned Musculoskeletal Provider 10/09/22 05/01/24 Alfonso Renteria MD [address] 895296 Assigned Neuroscience Provider 04/02/23 Radha Lomeli APRN REGIONAL EXTENSION SERVICE SPECIALIST [address] [address] Assigned Heart and Vascular Provider 05/28/23 Jelena David OD [address] [facility] [place] [address] Ophthalmology 06/15/23 Pao Joseph, VJ Personal Advocate & Liaison (PAL) Nurse 08/01/23 11/07/23 Esha Grimm PA-C [address] [place] [address] Assigned PCP 07/16/23 Valery Veronica PA-C [address] [place] [address] Physician Jewel Setter Dermatology 09/19/23 Rey Tay MD 9 [place] [address] MD Gastroenterology 09/20/23 Rocky Zepeda DO [address] [place] [address] Physician Gastroenterology 09/20/23 Philip Dumont MD 6 [place] [address] Physician Ophthalmology 09/22/23 Meredith Carrera PA-C 9 [place] [address] Assigned Gastroenterology Provider 11/01/23 Neil Kent MD [address] 332380 Dermatology 11/02/23 [place] [address] [place] [address] [address] Neurological Surgery 12/26/23 Audrey Waite PA-C [address] [place] [address] Physician Jewel Setter Dermatology 02/28/24 Valery Veronica PA-C 123140 [place], [place] [address] Physician Jewel Setter Dermatology 04/10/24 Herminia Hatch MD [address] [place] [address] Assigned Rheumatology Provider 07/02/24 documented as of this encounter
--- OUTSIDE RECORDS SUMMARY | 2024-07-22 20:42 | XMS_ITS | Encounter Summary ---
Author Organization [facility] Address [address] [place] [address] Care Team Providers Care Birth Attendant Name Role Phone Diana Desir [facility] Unavailable Rain Galaviz PA-C Unavailable Tavia Wyatt MD Unavailable Erica Farrell APRN TEAM FACILITATOR Unavailable Rich Barrett MD Unavailable [phone] Neil Kent MD Unavailable Diana Desir [facility] Unavailable Livan Sharif MD Unavailable Catherine Cm MD Unavailable + Valery Veronica PA-C Unavailable [phone] Brea Quinn NODE JS DEVELOPER TEAM FACILITATOR Unavailable Brea Quinn NODE JS DEVELOPER TEAM FACILITATOR Unavailable Jose Francisco Johnson MD Unavailable Alfonso Renteria MD Unavailable [phone] Esha Grimm PA-C Primary Care Provider Radha Lomeli APRN TEAM FACILITATOR Unavailable Jelena David OD Unavailable Pao Joseph RN Unavailable Unavailable Esha Grimm PA-C Unavailable [phone] Valery Veronica PA-C Unavailable [phone] Rey Tay MD Unavailable Rocky Zepeda DO Unavailable Philip Dumont MD Unavailable [phone] Merediht Carrera PA-C Unavailable [phone] Neil Kent MD Unavailable Juan Pablo Emmanuel MD Unavailable [phone] Audrey Waite PA-C Unavailable [phone] Valery Veronica PA-C Unavailable Herminia Hatch MD Unavailable Encounter Details Date Type Department Care Team (Late st Contact Info) Description 09/08/2023 [facility] Medical Advice [facility] Gastroenterology Clinic [address] [address] Mary Kelsey Social History Tobacco [...] at this level? 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 DEPARTMENT CHAIR Gender Identity Female 03/02/2021 5:45 PM CDT Sexual Orientation Straight 02/28/2020 12 :51 AM CDT documented as of this encounter Plan of Treatment Upcoming Encounters Date Type Department Care Team (Late st Contact Info) Description 10/23/2024 9:30 AM CDT Office Visit [facility] Neurology [address], [address] [place] [address] [place] [address] [address] [address] [id number] Johnny Penn MD [address] [place] 028525 11/28/2024 7:45 AM CDT Virtual Visit [facility] Gastroenterology Clinic [address] 4th [place] [address] Meredith Carrera PA-C 909 [place] [address] documented as of this encounter Visit Diagnoses Not on filedocumented in this encounter Additional Health Concerns Infection Onset Date Last Indicated Resolved Time Rule Out COVID-19 12/26/2023 12/26/2023 12/26/2023 9:50 AM CDT Rule Out COVID-19 04/09/2024 04/09/2024 04/10/2024 6:48 PM CDT Assessment Noted Time PHQ-9 Depression Total Score: 4 06/20/20 8:40 AM ANTHROPOLOGY DEPARTMENT CHAIR documented as of this encounter Care Teams Birth Attendant Relationship Specialty Start Date End Date Esha Grimm PA-C [address] [place] [address] PCP - General Family Medicine 05/04/23 [facility] 3033 [place] [address] Pharmacist Pharmacist 04/17/21 Rain Galaviz PA-C [address] [place] [address] [address] [place] [address] Physician Cider Maker Dermatology 04/28/21 Tavia Wyatt MD [address] [place] [address] [address] [place] [address] Dermatology 07/14/21 Erica Farrell APRN TEAM FACILITATOR [address] [id number] [place] [address] Nurse Practitioner Cardiovascular Disease 09/09/21 Rich Barrett MD [address] 633835 Physician Ophthalmology 01/21/22 Neil Kent MD 500 [place], [place] 400985 Dermatology 02/24/22 Diana Desir, [facility] 3033 [place] [address] Assigned MTM Pharmacist 04/07/22 Livan Sharif MD [address] 68[address] Cardiovascular Disease 05/14/22 Catherine Cm MD [address] 069165 Cardiovascular Disease 07/21/22 Valery Veronica, PA-C 909 [place], [place] 507105 Physician Cider Maker Dermatology 07/21/22 Brea Quinn APRN TEAM FACILITATOR 500 [place] [address] Nurse Practitioner Dermatology 09/21/22 Brea Quinn APRN TEAM FACILITATOR [address] [place] [address] [place] 268162 Assigned Surgical Provider 10/09/22 05/01/24 [place] [address] 147937 Assigned Musculoskeletal Provider 10/09/22 05/01/24 Alfonso Renteria MD [address] [place] [address] Assigned Neuroscience Provider 04/02/23 Radha Lomeli APRN TEAM FACILITATOR [address] [facility] [address] [place] [address] Assigned Heart and Vascular Provider 05/28/23 Jelena David OD [address] [place] [address] Ophthalmology 06/15/23 Pao Joseph, VJ Personal Advocate & Liaison (PAL) Nurse 08/01/23 11/07/23 Esha Grimm PA-C [address] [place] [address] Assigned PCP 07/16/23 Valery Veronica PA-C [address] [place] [address] 080525 Physician Cider Maker Dermatology 09/19/23 Rey Tay MD [address] [place] [address] 884385 Gastroenterology 09/20/23 Rocky Zepeda DO [address] [place] [address] 584605 Physician Gastroenterology 09/20/23 Philip Dumont MD [address] [place] [address] Physician Ophthalmology 09/22/23 Meredith Carrera PA-C [address] [place] [address] Assigned Gastroenterology Provider 11/01/23 Neil Kent MD [address] [place] [address] Dermatology 11/02/23 [place] [address] [address] Neurological Surgery 12/26/23 Audrey Waite PA-C [address] [place] [address] Physician Cider Maker Dermatology 02/28/24 Valery Veronica PA-C 670253 [place] [address] Physician Cider Maker Dermatology 04/10/24 Herminia Hatch MD [facility]5 [place] [address] Assigned Rheumatology Provider 07/02/24 documented as of this encounter
--- OUTSIDE RECORDS SUMMARY | 2024-07-22 20:42 | XMS_ITS | Encounter Summary ---
Author Organization [facility] Address [address] [place] [address] Care Team Providers Care Senior Pl Sql Developer Name Role Phone Diana Desir [facility] Unavailable Rain Galaviz PA-C Unavailable Tavia Wyatt MD Unavailable Erica Farrell APRN COMMERCIAL LITIGATION ATTORNEY Unavailable Rich Barrett MD Unavailable [phone] Neil Kent MD Unavailable Diana Desir [facility] Unavailable Livan Sharif MD Unavailable Catherine Cm MD Unavailable + Valery Veronica PA-C Unavailable Brea Quinn ASSURANCE SENIOR MANAGER INSURANCE COMMERCIAL LITIGATION ATTORNEY Unavailable Brea Quinn ASSURANCE SENIOR MANAGER INSURANCE COMMERCIAL LITIGATION ATTORNEY Unavailable Jose Francisco Johnson MD Unavailable Alfonso Renteria MD Unavailable [phone] Esha Grimm PA-C Primary Care Provider [phone] Radha Lomeli APRN COMMERCIAL LITIGATION ATTORNEY Unavailable Jelena David OD Unavailable Pao Joseph RN Unavailable Unavailable Esha Grimm PA-C Unavailable [phone] Valery Veronica PA-C Unavailable [phone] Rey Tay MD Unavailable Rocky Zepeda DO Unavailable Philip Dumont MD Unavailable [phone] Meredith Carrera PA-C Unavailable [phone] Neil Kent MD Unavailable Juan Pablo Emmanuel MD Unavailable [phone] Audrey Waite PA-C Unavailable [phone] Valery Veronica PA-C Unavailable [phone] Herminia Hatch MD Unavailable Encounter Details Date Type Department Care Team (Late st Contact Info) Description 08/25/2023 [facility] Medical Advice [facility] Gastroenterology Clinic [address] [address] Marija Polanco RN Social History [...] you attend [employer] [facility] [facility] or synagogue services? 1 to 4 times [...] exercise at this level? 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 Gender Identity Female 03/02/2021 5:45 PM CDT Sexual Orientation Straight 02/28/2020 12 :51 AM CDT documented as of this encounter Plan of Treatment Upcoming Encounters Date Type Department Care Team (Late st Contact Info) Description 10/23/2024 9:30 AM CDT Office Visit [facility] Neurology [address], [address] [place] [address] [place] [address] [place] 869817 Johnny Penn MD [address] [place] [address] 11/28/2024 7:45 AM CDT Virtual Visit [facility] Gastroenterology Clinic [address] 4th [place] [address] Meredith Carrera PAUcheC 909 [place] [address] documented as of this encounter Visit Diagnoses Not on filedocumented in this encounter Additional Health Concerns Infection Onset Date Last Indicated Resolved Time Rule Out COVID-19 12/26/2023 12/26/2023 12/26/2023 9:50 AM CDT Rule Out COVID-19 04/09/2024 04/09/2024 04/10/2024 6:48 PM CDT Assessment Noted Time PHQ-9 Depression Total Score: 4 06/20/20 8:40 AM GEOLOGICAL ENGINEERING TEACHER documented as of this encounter Care Teams Senior Pl Sql Developer Relationship Specialty Start Date End Date Esha Grimm PA-C [address] [place] [address] PCP - General Family Medicine 05/04/23 Diana Desir, [facility] [address] [place] [address] Pharmacist Pharmacist 04/17/21 Rain Galaviz PA-C [address] [place] [address] [address] [place] [address] Physician Crusher Wet Ground Mica Dermatology 04/28/21 Tavia Wyatt MD [address] [place] [address] [address] [place] [address] Dermatology 07/14/21 Erica Farrell APRN COMMERCIAL LITIGATION ATTORNEY [address] 2279700 [place] [address] Nurse Practitioner Cardiovascular Disease 09/09/21 Rich Barrett MD [address] [place] 5[address] Physician Ophthalmology 01/21/22 Neil Kent MD 500 [place], [place] 934135 Dermatology 02/24/22 Diana Desir, [facility] 30[address] [place] [address] Assigned MTM Pharmacist 04/07/22 Livan Sharif MD [address] 008765 Cardiovascular Disease 05/14/22 Catherine Cm MD [address] 725885 Cardiovascular Disease 07/21/22 Valery Veronica, PA-C 909 [place], [place] 470385 Physician Crusher Wet Ground Mica Dermatology 07/21/22 Brea Quinn APRN COMMERCIAL LITIGATION ATTORNEY 500 [place] [address] Nurse Practitioner Dermatology 09/21/22 Brea Quinn APRN COMMERCIAL LITIGATION ATTORNEY [address] [place] [address] [facility] [place] [address]82 Assigned Surgical Provider 10/09/22 05/01/24 [place] [address] 262617 Assigned Musculoskeletal Provider 10/09/22 05/01/24 Alfonso Renteria MD [address] [place] [address] Assigned Neuroscience Provider 04/02/23 Radha Lomeli APRN COMMERCIAL LITIGATION ATTORNEY 6405 [facility] [address] [place] [address] Assigned Heart and Vascular Provider 05/28/23 Jelena David OD [address] [place] [address] Ophthalmology 06/15/23 Pao Joseph, VJ Personal Advocate & Liaison (PAL) Nurse 08/01/23 11/07/23 Esha Grimm PA-C [address] [place] [address] Assigned PCP 07/16/23 Valery Veronica PA-C [address] [place] [address] 675885 Physician Crusher Wet Ground Mica Dermatology 09/19/23 Rey Tay MD [address] [place] [address] 548815 Gastroenterology 09/20/23 Rocky Zepeda DO [address] [place] [address] 231095 Physician Gastroenterology 09/20/23 Philip Dumont MD [address] [place] [address] Physician Ophthalmology 09/22/23 Meredith Carrera PA-C [address] [place] [address] Assigned Gastroenterology Provider 11/01/23 Neil Kent MD [address] [address] Dermatology 11/02/23 [place] [address] [address] Neurological Surgery 12/26/23 Audrey Waite PA-C [address] [place] [address] Physician Crusher Wet Ground Mica Dermatology 02/28/24 Valery Veronica PA-C 702352 [address] [place] [address] Physician Crusher Wet Ground Mica Dermatology 04/10/24 Herminia Hatch MD [facility]5 [place], [place] 71067125 Assigned Rheumatology Provider 07/02/24 documented as of this encounter
--- OUTSIDE RECORDS SUMMARY | 2024-07-22 20:42 | XMS_ITS | Encounter Summary ---
Author Organization [facility] Address [address] [place] [address] Care Team Providers Care Senior Recruitment Consultant Name Role Phone Diana Desir [facility] Unavailable Rain Galaviz PA-C Unavailable Tavia Wyatt MD Unavailable Erica Farrell APRN EDUCATION TECHNICIAN Unavailable Rich Barrett MD Unavailable [phone] Neil Kent MD Unavailable Diana Desir [facility] Unavailable Livan Sharif MD Unavailable Catherine Cm MD Unavailable + Valery Veronica-C Unavailable Brea Quinn LINEN SUPERVISOR EDUCATION TECHNICIAN Unavailable Brea Quinn LINEN SUPERVISOR EDUCATION TECHNICIAN Unavailable Jose Francisco Johnson MD Unavailable Sydnie Martinez RN Unavailable Unavailable Alfonso Renteria MD Unavailable [phone] Esha Grimm PA-C Primary Care Provider Cheng Todd PA-C Unavailable [phone] Radha Lomeli APRN EDUCATION TECHNICIAN Unavailable Jelena David OD Unavailable Pao Joseph RN Unavailable Unavailable Esha Grimm PA-C Unavailable [phone] Valery Veronica PA-C Unavailable Rey Tay MD Unavailable Rocky Zepeda DO Unavailable Philip Dumont MD Unavailable Meredith Carrera PA-C Unavailable [phone] Neil Kent MD Unavailable Juan Pablo Emmanuel MD Unavailable [phone] Audrey Waite PA-C Unavailable JeremíasValery damon PA-C Unavailable Herminia Hatch MD Unavailable Encounter Details Date Type Department Care Team (Late st Contact Info) Description 07/06/2023 [facility] Connie [facility] [address] [place] [address] Esha Grimm PA-C [id number] [place] [address] Social History Tobacco Use Types Packs/Day [...] 0 06/20/2023 [facility] - Occupational Stress Questionnaire Answer [...] exercise at this level? 30 min 03/10/2023 [place] Depression Scale Answer Date Recorded [place] [...] CDT Legal Sex Female 4:13 AM MANAGER USER EXPERIENCE Gender Identity Female 03/02/2021 5:45 PM CDT Sexual Orientation Straight 02/28/2020 12 :51 AM CDT documented as of this encounter Plan of Treatment Upcoming Encounters Date Type Department Care Team (Late st Contact Info) Description 10/23/2024 9:30 AM CDT Office Visit [facility] Neurology Clinics [facility] [address] [place] [address], [address] [place] [address] [place] [address] [place] [address] Johnny Penn MD [address] [place] [address] 11/28/2024 7:45 AM CDT Virtual Visit [facility] Gastroenterology Clinic [place] [address] [facility] [address] 4th [place] [address] Meredith Carrera PA-C [address] [place] [address] documented as of this encounter Visit Diagnoses Not on filedocumented in this encounter Additional Health Concerns Infection Onset Date Last Indicated Resolved Time Rule Out COVID-19 12/26/2023 12/26/2023 12/26/2023 9:50 AM CDT Rule Out COVID-19 04/09/2024 04/09/2024 04/10/2024 6:48 PM CDT Assessment Noted Time PHQ-9 Depression Total Score: 4 06/20/20 23 8:40 AM MANAGER USER EXPERIENCE documented as of this encounter Care Teams Senior Recruitment Consultant Relationship Specialty Start Date End Date Esha Grimm PA-C [address] [place] [phone] PCP - General Family Medicine 05/04/23 Diana Desir, [facility] 3033 [place] [address] Pharmacist Pharmacist 04/17/21 Rain Galaviz PA-C [address] [place] [address] [address] [place] [address] Physician Security Ambassador Dermatology 04/28/21 Tavia Wyatt MD [address] [place] [address] [address] [place] [address] Dermatology 07/14/21 Erica Farrell APRN EDUCATION TECHNICIAN [address] [facility] [address] [place], [place] 710745 Nurse Practitioner Cardiovascular Disease 09/09/21 Rich Barrett MD 516 [facility] 9A [place], [place] 511275 Physician Ophthalmology 01/21/22 Neil Kent MD 500 [place], [place] 607975 Dermatology 02/24/22 Diana Desir, [facility] [address] [place], [place] 964006 Assigned [facility] Pharmacist 04/07/22 Livan Sharif MD [address], [facility]00 [place] [address] Cardiovascular Disease 05/14/22 Catherine Cm MD 6405 [facility] [address] 076655 Cardiovascular Disease 07/21/22 Valery Veronica, PA-C [address] [place] [address] 606305 Physician Security Ambassador Dermatology 07/21/22 Brea Quinn APRN EDUCATION TECHNICIAN 500 [place], [place] 580105 Nurse Practitioner Dermatology 09/21/22 Brea Quinn APRN EDUCATION TECHNICIAN 6401 [facility] [place] 998972 Assigned Surgical Provider 10/09/22 05/01/24 [place] [address] [place] [address] [place] [address] Assigned Musculoskeletal Provider 10/09/22 05/01/24 Sydnie Martinez RN Personal Advocate & Liaison (PAL) Family Medicine 03/28/23 07/31/23 Alfonso Renteria MD 5775 [facility] 200 [place], [place] 759516 Assigned Neuroscience Provider 04/02/23 Cheng Todd PA-C [address] [place] [address] [id number] Assigned PCP 04/30/23 07/15/23 Radha Lomeli APRN EDUCATION TECHNICIAN [address] [facility] [address] [place], [place] 391425 Assigned Heart and Vascular Provider 05/28/23 Jelena David OD [address] [facility] [place] [address] Ophthalmology 06/15/23 Pao Joseph, VJ Personal Advocate & Liaison (PAL) Nurse 08/01/23 11/07/23 Esha Grimm PA-C [address] [place] [phone] Assigned PCP 07/16/23 Valery Veronica PA-C 909 [place], [place] 223305 Physician Security Ambassador Dermatology 09/19/23 Rey Tay MD 909 [place], [place] 015925 MD Gastroenterology 09/20/23 Rocky Zepeda DO 500 [place] [address] Physician Gastroenterology 09/20/23 Philip Dumont MD 516 [place], [place] [address] Physician Ophthalmology 09/22/23 Meredith Carrera PA-C 909 [place], [place] 362485 Assigned Gastroenterology Provider 11/01/23 Neil Kent MD [address] [place] [address] 900720 Dermatology 11/02/23 [place] [address] [place] [facility] [[email or web address] [place], [place] 887567 Neurological Surgery 12/26/23 Audrey Waite PA-C 500 [place] [address] Physician Security Ambassador Dermatology 02/28/24 Valery Veronica PA-C 376655 [address], [place] [address] Physician Security Ambassador Dermatology 04/10/24 Herminia Hatch MD [facility] [place] [address] Assigned Rheumatology Provider 07/02/24 documented as of this encounter
--- OUTSIDE RECORDS SUMMARY | 2024-07-22 20:42 | XMS_ITS | Encounter Summary ---
Author Organization [facility] [facility] Address [address] [place] [address] Care Team Providers Care Queen'S Counsel Name Role Phone Diana Desir [facility] Unavailable Rain Galaviz PA-C Unavailable [phone] Tavia Wyatt MD Unavailable Erica Farrell APRN RESIDENTIAL CONCIERGE Unavailable Rich Barrett MD Unavailable [phone] Neil Kent MD Unavailable Diana Desir [facility] Unavailable [phone] Livan Sharif MD Unavailable Catherine Cm MD Unavailable + Valery Veronica PA-C Unavailable Brea Qunin PRIVATE DUTY AIDE RESIDENTIAL CONCIERGE Unavailable [phone] Brea Quinn PRIVATE DUTY AIDE RESIDENTIAL CONCIERGE Unavailable [phone] Jose Francisco Johnson MD Unavailable Alfonso Renteria MD Unavailable [phone] Esha Grimm PA-C Primary Care Provider Radha Lomeli APRN RESIDENTIAL CONCIERGE Unavailable Jelena David OD Unavailable [phone] Pao Joseph RN Unavailable Unavailable Esha Grimm PA-C Unavailable [phone] Valery Veronica PA-C Unavailable Rey Tay MD Unavailable Rocky Zepeda DO Unavailable Philip Dumont MD Unavailable [phone] Meredith Carrera PA-C Unavailable [phone] Neil Kent MD Unavailable Juan Pablo Emmanuel MD Unavailable [phone] Audrey Waite PA-C Unavailable [phone] Valery Veronica PA-C Unavailable [phone] Herminia Hatch MD Unavailable Encounter Details Date Type Department Care Team (Late st Contact Info) Description 09/01/2023 [facility] [address] [address] [facility] [address] [place] [address] Social History Tobacco Use Types Packs/Day Years [...] [facility]? 1 to 4 [...] 06/20/2023 [facility] [...] exercise at this level? 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 BOILER ENGINEER Gender Identity Female 03/02/2021 5:45 PM CDT Sexual Orientation Straight 02/28/2020 12 :51 AM CDT documented as of this encounter Plan of Treatment Upcoming Encounters Date Type Department Care Team (Late st Contact Info) Description 10/23/2024 9:30 AM CDT Office Visit [facility] Neurology [address], [address] [place] [address] [place] [address] [address] [place] [address] Johnny Penn MD [address] [place] 177875 11/28/2024 7:45 AM CDT Virtual Visit [facility] [address] [place] [address] Meredith Carrera PA-C [address] [place] [address] documented as of this encounter Visit Diagnoses Not on filedocumented in this encounter Additional Health Concerns Infection Onset Date Last Indicated Resolved Time Rule Out COVID-19 12/26/2023 12/26/2023 12/26/2023 9:50 AM CDT Rule Out COVID-19 04/09/2024 04/09/2024 04/10/2024 6:48 PM CDT Assessment Noted Time PHQ-9 Depression Total Score: 4 06/20/20 23 8:40 AM BOILER ENGINEER documented as of this encounter Care Teams Queen'S Counsel Relationship Specialty Start Date End Date Esha Grimm PA-C [address] [place] [address] PCP - General Family Medicine 05/04/23 Diana Desir, [facility] [address] [place], [place] 85[address] Pharmacist Pharmacist 04/17/21 Rain Galaviz PA-C [address] [place] [address] [place] [address] Physician Director Product Dermatology 04/28/21 Tavia Wyatt MD [address] [place] [address] [place] [address] Dermatology 07/14/21 Erica Farrell APRN RESIDENTIAL CONCIERGE [address] [facility] [address] [place] [address] Nurse Practitioner Cardiovascular Disease 09/09/21 Rich Barrett MD [address] [facility] [address] [place], [place] [address] Physician Ophthalmology 01/21/22 Neil Kent MD 500 [place], [place] 217925 Dermatology 02/24/22 Diana Desir, [facility] [address] [place], [place] 334736 Assigned MTM Pharmacist 04/07/22 Livan Sharif MD [address] [place] 232605 Cardiovascular Disease 05/14/22 Catherine Cm MD [address] [facility] [address] [place] 9[address]295 Cardiovascular Disease 07/21/22 Valery Veronica, PA-C 909 [place], [place] 748015 Physician Director Product Dermatology 07/21/22 Brea Quinn APRN RESIDENTIAL CONCIERGE 500 [place], [place] 047715 Nurse Practitioner Dermatology 09/21/22 Brea Quinn APRN RESIDENTIAL CONCIERGE 6401 [facility] [place] [address] Assigned Surgical Provider 10/09/22 05/01/24 [place] [address] [address] [place] [address] Assigned Musculoskeletal Provider 10/09/22 05/01/24 Alfonso Renteria MD [address] [facility] 200 [place], [place] 433236 Assigned Neuroscience Provider 04/02/23 Radha Lomeli, ARLENE RESIDENTIAL CONCIERGE [address] [facility] [address] [place] 323315 Assigned Heart and Vascular Provider 05/28/23 Jelena David OD [address] [facility] [address] Ophthalmology 06/15/23 Pao Joseph, VJ Personal Advocate & Liaison (PAL) Nurse 08/01/23 11/07/23 Esha Grimm PA-C [address] [place] [address] Assigned PCP 07/16/23 Valery Veronica PA-C [address] [place] [address] 060865 Physician Director Product Dermatology 09/19/23 Rey Tay MD [address] [place] [address] 521625 Gastroenterology 09/20/23 Rocky Zepeda DO [address] [place] [address] 080775 Physician Gastroenterology 09/20/23 Philip Dumont MD [address] [place] [address] Physician Ophthalmology 09/22/23 Meredith Carrera PA-C [address] [place] [address] Assigned Gastroenterology Provider 11/01/23 Neil Kent MD [address] 423[address] MD Dermatology 11/02/23 [place] [address] 350[address] Neurological Surgery 12/26/23 Audrey Waite PA-C [address] [place] [address] 253765 Physician Director Product Dermatology 02/28/24 Valery Veronica PA-C 984908 [address] [place] [address] Physician Director Product Dermatology 04/10/24 Herminia Hatch MD [address] [place] [address] Assigned Rheumatology Provider 07/02/24 documented as of this encounter
--- OUTSIDE RECORDS SUMMARY | 2024-07-22 20:42 | XMS_ITS | Encounter Summary ---
Author Organization [facility] Address [address] [place] [address] Care Team Providers Care Cold Working Supervisor Name Role Phone Diana Desir [facility] Unavailable [phone] Rain Galaviz PA-C Unavailable Tavia Wyatt MD Unavailable Erica Farrell APRN CLAIM INVESTIGATOR Unavailable Rich Barrett MD Unavailable [phone] Neil Kent MD Unavailable Diana Desir [facility] Unavailable Livan Sharif MD Unavailable Catherine Cm MD Unavailable + Valery Veronica-C Unavailable Brea Quinn COMPUTER NUMERICAL CONTROL OPERATOR CLAIM INVESTIGATOR Unavailable Brea Quinn COMPUTER NUMERICAL CONTROL OPERATOR CLAIM INVESTIGATOR Unavailable Jose Francisco Johnson MD Unavailable Sydnie Martinez RN Unavailable Unavailable Alfonso Renteria MD Unavailable [phone] Esha Grimm PA-C Primary Care Provider Cheng Todd PA-C Unavailable [phone] Radha Lomeli APRN CLAIM INVESTIGATOR Unavailable Jelena David OD Unavailable [phone] Pao Joseph RN Unavailable Unavailable Esha Grimm PA-C Unavailable [phone] Valery Veronica PA-C Unavailable [phone] Rey Tay MD Unavailable Rocky Zepeda DO Unavailable Philip Dumont MD Unavailable Meredith Carrera PA-C Unavailable Neil Kent MD Unavailable Juan Pablo Emmanuel MD Unavailable Audrey Waite PA-C Unavailable JeremíasValery damon PA-C Unavailable Herminia Hatch MD Unavailable Encounter Details Date Type Department Care Team (Late st Contact Info) Description 07/06/2023 MyC Medical Advice [facility] [address] [facility], [address] [place] [address] Alfonso Renteria MD [address] [facility] [address] [place] [address] Social History Tobacco Use Types [...] Score 0 06/20/2023 [facility] - Occupational Stress Questionnaire [...] exercise at this level? 30 min 03/10/2023 [place] Depression Scale Answer Date Recorded [place] Depression Score 5 01/14/2021 Last EPDS Self [...] Legal Sex Female 4:13 AM PRODUCTION CONTROL SCHEDULER Gender Identity Female 03/02/2021 5:45 PM CDT Sexual Orientation Straight 02/28/2020 12 :51 AM CDT documented as of this encounter Miscellaneous Notes * Telephone Encounter - Genny Hyman PA-C - 07/07/2023 11:13 AM PRODUCTION CONTROL SCHEDULER No lesions/abnormal findings on MRI to account for possible seizure activity. Last office note indicated: If repeat MRI was normal would reduce levetiracetam to 250 mg per day for two weeks and then stop. Ok to proceed with this plan. Call if questions, concerns, or worsening of symptoms with discontinuation of the medication Genny Hyman PA-C UCTION CONTROL SCHEDULER documented in this encounter Plan of Treatment Upcoming Encounters Date Type Department Care Team (Late st Contact Info) Description 10/23/2024 9:30 AM CDT Office Visit [facility] Neurology [facility] [address] [facility], [address] [place] [address] [place] [address] [place] [address] Johnny Penn MD 6554 [place], [place] 497[address] 11/28/2024 7:45 AM CDT Virtual Visit [facility] Gastroenterology Clinic [address] 4th [place] [phone] Meredith Carrera PA-C [address] [place] [address] documented as of this encounter Visit Diagnoses Not on filedocumented in this encounter Additional Health Concerns Infection Onset Date Last Indicated Resolved Time Rule Out COVID-19 12/26/2023 12/26/2023 12/26/2023 9:50 AM CDT Rule Out COVID-19 04/09/2024 04/09/2024 04/10/2024 6:48 PM CDT Assessment Noted Time PHQ-9 Depression Total Score: 4 06/20/20 23 8:40 AM PRODUCTION CONTROL SCHEDULER documented as of this encounter Care Teams Cold Working Supervisor Relationship Specialty Start Date End Date Esha Grimm PA-C [address] [place] [address] PCP - General Family Medicine 05/04/23 Diana Desir, [facility] [address] [place], [place] [address] Pharmacist Pharmacist 04/17/21 Rain Galaviz PA-C [address] [place] [address] [address] [place] [address] Physician Gang Pusher Dermatology 04/28/21 Tavia Wyatt MD [address] [place] [address] [address] [place] [address] Dermatology 07/14/21 Erica Farrell APRN CLAIM INVESTIGATOR [address] [place] 602445 Nurse Practitioner Cardiovascular Disease 09/09/21 Rich Barrett MD [address] 128535 Physician Ophthalmology 01/21/22 Neil Kent MD 500 [place], [place] 9[address]105 Dermatology 02/24/22 Diana Desir, [facility] [address] [place] [address] Assigned [place] Pharmacist 04/07/22 Livan Sharif MD [address] [place] 267[address] Cardiovascular Disease 05/14/22 Catherine Cm MD [address] [place] [address] Cardiovascular Disease 07/21/22 Valery Veronica PA-C 909 [place] [address] Physician Gang Pusher Dermatology 07/21/22 Brea Quinn APRN CLAIM INVESTIGATOR 500 [place] [address] Nurse Practitioner Dermatology 09/21/22 Brea Quinn APRN CLAIM INVESTIGATOR [address] [place] 781322 Assigned Surgical Provider 10/09/22 05/01/24 [place] [address] [facility] 300 [place] [address] Assigned Musculoskeletal Provider 10/09/22 05/01/24 Sydnie Martinez RN Personal Advocate & Liaison (PAL) Family Medicine 03/28/23 07/31/23 Alfonso Renteria MD 5775 [facility] 200 [place] [address] Assigned Neuroscience Provider 04/02/23 Cheng Todd PA-C [address] [place] [address] [id number] Assigned PCP 04/30/23 07/15/23 Radha Lomeli APRN CLAIM INVESTIGATOR [address] [facility] [address] [place] [address] Assigned Heart and Vascular Provider 05/28/23 Jelena David OD [address] [facility] [address] MD Ophthalmology 06/15/23 Pao Joseph, RN Personal Advocate & Liaison (PAL) Nurse 08/01/23 11/07/23 Esha Grimm PA-C [address] [place] [address] Assigned PCP 07/16/23 Valery Veronica PA-C [address] [place] [address] Physician Gang Pusher Dermatology 09/19/23 Rey Tay MD [address] [place] [address] MD Gastroenterology 09/20/23 Rocky Zepeda DO [address] [place] [address] Physician Gastroenterology 09/20/23 Philip Dumont MD [address] [place] [address] Physician Ophthalmology 09/22/23 Meredith Carrera PA-C [address] [place] [address] Assigned Gastroenterology Provider 11/01/23 Neil Kent MD [address] [place] [address] 352860 Dermatology 11/02/23 [place] [address] [place] [address] Neurological Surgery 12/26/23 Audrey Waite PA-C 500 [place] [address] Physician Gang Pusher Dermatology 02/28/24 Valery Veronica PA-C 440463 99 [place] [address] Physician Gang Pusher Dermatology 04/10/24 Herminia Hatch MD [address] [place] [address] [id number] Assigned Rheumatology Provider 07/02/24 documented as of this encounter
--- OUTSIDE RECORDS SUMMARY | 2024-07-22 20:42 | XMS_ITS | Encounter Summary ---
Author Organization [facility] Address [address] [place] [address] Care Team Providers Care Straightedge Machine Operator Helper Name Role Phone Diana Desir [facility] Unavailable [phone] Rain Galaviz PA-C Unavailable Tavia Wyatt MD Unavailable Erica Farrell APRN ELECTRONICS ENGINEERING PROFESSOR Unavailable Rich Barrett MD Unavailable [phone] Neil Kent MD Unavailable Diana Desir [facility] Unavailable Livan Sharif MD Unavailable Catherine Cm MD Unavailable + Valery Veronica PA-C Unavailable Brea Quinn DISTRIBUTION TRANSFORMER ASSEMBLER ELECTRONICS ENGINEERING PROFESSOR Unavailable Brea Quinn DISTRIBUTION TRANSFORMER ASSEMBLER ELECTRONICS ENGINEERING PROFESSOR Unavailable [phone] Jose Francisco Johnson MD Unavailable Alfonso Renteria MD Unavailable [phone] Esha Grimm PA-C Primary Care Provider Radha Lomeli APRN ELECTRONICS ENGINEERING PROFESSOR Unavailable Jelena David OD Unavailable Pao Joseph RN Unavailable Unavailable Esha Grimm PA-C Unavailable [phone] Valery Veronica PA-C Unavailable [phone] Rey Tay MD Unavailable Rocky Zepeda DO Unavailable Philip Dumont MD Unavailable [phone] Meredith Carrera PA-C Unavailable [phone] Neil Kent MD Unavailable Juan Pablo Emmanuel MD Unavailable [phone] Audrey Waite PA-C Unavailable [phone] Valery Veronica PA-C Unavailable Herminia Hatch MD Unavailable Encounter Details Date Type Department Care Team (Late st Contact Info) Description 08/31/2023 MyC Medical [facility]ice [facility] [address] [facility] [address] [place] [address] Amalia Reyes RN Social History [...] at this level? 30 min 03/10/2023 [place] Depression Scale Answer Date Recorded [place] Depression Score 5 01/14/2021 Last [...] PM CDT Legal Sex Female 4:13 AM BATCH FREEZER Gender Identity Female 03/02/2021 5:45 PM CDT Sexual Orientation Straight 02/28/2020 12 :51 AM CDT documented as of this encounter Plan of Treatment Upcoming Encounters Date Type Department Care Team (Late st Contact Info) Description 10/23/2024 9:30 AM CDT Office Visit [facility] Neurology [address] [place] [address] [place] [address] [address] [place] [address] Johnny Penn MD [address] [place] 951125 11/28/2024 7:45 AM CDT Virtual Visit [facility] Gastroenterology Clinic [address] 4th [place] [address] Meredith Carrera PA-C 909 [place] [address] documented as of this encounter Visit Diagnoses Not on filedocumented in this encounter Additional Health Concerns Infection Onset Date Last Indicated Resolved Time Rule Out COVID-19 12/26/2023 12/26/2023 12/26/2023 9:50 AM CDT Rule Out COVID-19 04/09/2024 04/09/2024 04/10/2024 6:48 PM CDT Assessment Noted Time PHQ-9 Depression Total Score: 4 06/20/20 8:40 AM BATCH FREEZER documented as of this encounter Care Teams Straightedge Machine Operator Helper Relationship Specialty Start Date End Date Esha Grimm PA-C [address] [place] [address] PCP - General Family Medicine 05/04/23 [facility] 3033 [place] [address] Pharmacist Pharmacist 04/17/21 Rain Galaviz PA-C [address] [place] [address] [address] [place] [address] Physician Dev Technical Mgr Dermatology 04/28/21 Tavia Wyatt MD [address] [place] [address] [address] [place] [address] Dermatology 07/14/21 Erica Farrell APRN ELECTRONICS ENGINEERING PROFESSOR [address] [place] 0608800 [place] [address] Nurse Practitioner Cardiovascular Disease 09/09/21 Rich Barrett MD [address] 177485 Physician Ophthalmology 01/21/22 Neil Kent MD 500 [place], [place] [address] Dermatology 02/24/22 Diana Desir, [facility] 3033 [place] [address] Assigned MTM Pharmacist 04/07/22 Livan Sharif MD [address] 084915 Cardiovascular Disease 05/14/22 Catherine Cm MD [address] 006075 Cardiovascular Disease 07/21/22 Valery Veronica, PA-C 909 [place], [place] 475425 Physician Dev Technical Mgr Dermatology 07/21/22 Brea Quinn APRN ELECTRONICS ENGINEERING PROFESSOR 500 [place] [address] Nurse Practitioner Dermatology 09/21/22 Brea Quinn APRN ELECTRONICS ENGINEERING PROFESSOR [address] [place] [address] [facility] [place] 256712 Assigned Surgical Provider 10/09/22 05/01/24 [place] [address] [place] [address] 043097 Assigned Musculoskeletal Provider 10/09/22 05/01/24 Alfonso Renteria MD [address] [place] [address] Assigned Neuroscience Provider 04/02/23 Radha Lomeli APRN ELECTRONICS ENGINEERING PROFESSOR [address] [facility] [address] [place] [address] Assigned Heart and Vascular Provider 05/28/23 Jelena David OD [address] [facility] [place] [address] Ophthalmology 06/15/23 Pao Joseph, VJ Personal Advocate & Liaison (PAL) Nurse 08/01/23 11/07/23 Esha Grimm PA-C [address] [place] [address] Assigned PCP 07/16/23 Valery Veronica PA-C [address] [place] [address] Physician Dev Technical Mgr Dermatology 09/19/23 Rey Tay MD [address] [place] [address] 028045 Gastroenterology 09/20/23 Rocky Zepeda DO [address] [place] [address] 968655 Physician Gastroenterology 09/20/23 Philip Dumont MD [address] [place] [address] Physician Ophthalmology 09/22/23 Meredith Carrera PA-C [address] [place] [address] Assigned Gastroenterology Provider 11/01/23 Neil Kent MD [address] [place] [address] MD Dermatology 11/02/23 [place] [address] [address] Neurological Surgery 12/26/23 Audrey Waite PA-C 500 [place] [address] Physician Dev Technical Mgr Dermatology 02/28/24 Valery Veronica PA-C 573158 [address] [place] [address] Physician Dev Technical Mgr Dermatology 04/10/24 Herminia Hatch MD [facility]5 [place], [place] 20578125 Assigned Rheumatology Provider 07/02/24 documented as of this encounter
--- OUTSIDE RECORDS SUMMARY | 2024-07-22 20:42 | XMS_ITS | Encounter Summary ---
Author Organization [facility] Address [address] [place] [address] Care Team Providers Care Regulator Pin Inserter Name Role Phone Diana Desir [facility] Unavailable Rain Galaviz PA-C Unavailable Tavia Wyatt MD Unavailable Erica Farrell APRN FLOOR COVERING PRINTER ASSISTANT Unavailable Rich Barrett MD Unavailable [phone] Neil Kent MD Unavailable Diana Desir [facility] Unavailable [phone] Livan Sharif MD Unavailable Catherine Cm MD Unavailable + Valery Veronica PA-C Unavailable Brea Quinn BASE MANAGER FLOOR COVERING PRINTER ASSISTANT Unavailable Brea Quinn BASE MANAGER FLOOR COVERING PRINTER ASSISTANT Unavailable Jose Francisco Johnson MD Unavailable Alfonso Renteria MD Unavailable [phone] Esha Grimm PA-C Primary Care Provider [phone] Radha Lomeli APRN FLOOR COVERING PRINTER ASSISTANT Unavailable Jelena David OD Unavailable Pao Joseph RN Unavailable Unavailable Esha Grimm PA-C Unavailable [phone] Valery Veronica PA-C Unavailable Rey Tay MD Unavailable Rocky Zepeda DO Unavailable Philip Dumont MD Unavailable [phone] Meredith Carrera PA-C Unavailable Neil Kent MD Unavailable Juan Pablo Emmanuel MD Unavailable Audrey Waite PA-C Unavailable [phone] Valery Veronica PA-C Unavailable Herminia Hatch MD Unavailable Reason for Visit * Reason Onset Date Comments Call Back 08/01/2023 Encounter Details Date Type Department Care Team (Late st Contact Info) Description 08/01/2023 Telephone [facility] [address] [place] [address] Esha Grimm PA-C [address] [place] [address] Call Back Social History Tobacco [...] Answer Date Recorded PHQ-2 Score 0 06/20/2023 [facility] - Occupational Stress Questionnaire Answer [...] exercise at this level? 30 min 03/10/2023 Pratt Depression Scale Answer Date Recorded Pratt Depression Score 5 01/14/2021 Last EPDS Self [...] PM CDT Legal Sex Female 4:13 AM HUNTER GUIDE Gender Identity Female 03/02/2021 5:45 PM CDT Sexual Orientation Straight 02/28/2020 12 :51 AM CDT documented as of this encounter Miscellaneous Notes * Telephone Encounter - Esha Grimm PA-C - 08/02/2023 7:49 AM CST See telephone encounter. Seen by [facility] who reviewed imaging and note fracture. Custom wrap made for the patient. Esha Grimm PA-C on 08/02/2023 at 7:49 AM ER GUIDE * Telephone Encounter - Debbie Shahid - [...] we send this information to you [facility] or would you prefer to receive a phone call?: No preference Okay to leave a detailed message?: Yes at Home number on file [phone] (home) ER GUIDE documented in this encounter Plan of Treatment Upcoming Encounters Date Type Department Care Team (Late st Contact Info) Description 10/23/2024 9:30 AM CDT Office Visit [facility] Neurology [address], [address] [place] [address] [place] [address] [place] [address] [address] Johnny Penn MD 6579 [facility] [place], [place] [address] 11/28/2024 7:45 AM CDT Virtual Visit [facility] Gastro[facility]ology Clinic [address] 4th [place] [address] Meredith Carrera PA-C [address] [place] [address] 099765 documented as of this encounter Visit Diagnoses Not on filedocumented in this encounter Additional Health Concerns Infection Onset Date Last Indicated Resolved Time Rule Out COVID-19 12/26/2023 12/26/2023 12/26/2023 9:50 AM CDT Rule Out COVID-19 04/09/2024 04/09/2024 04/10/2024 6:48 PM CDT Assessment Noted Time PHQ-9 Depression Total Score: 4 06/20/20 23 8:40 AM HUNTER GUIDE documented as of this encounter Care Teams Regulator Pin Inserter Relationship Specialty Start Date End Date Esha Grimm PA-C [address] [place] [address] PCP - General Family Medicine 05/04/23 Diana Desir, [facility] [address] [place] [address] Pharmacist Pharmacist 04/17/21 Rain Galaviz PA-C [address] [place] [address] [address] [place] [address] Physician Community Planning Technician Dermatology 04/28/21 Tavia Wyatt MD [address] [place] [address] [address] [place] [address] Dermatology 07/14/21 Erica Farrell APRN FLOOR COVERING PRINTER ASSISTANT 6405 [facility] [address] [place], [place] 602115 Nurse Practitioner Cardiovascular Disease 09/09/21 Rich Barrett MD 516 [facility] 9A [place], [place] 0[address] Physician Ophthalmology 01/21/22 Neil Kent MD 500 [place], [place] 812585 Dermatology 02/24/22 Diana Desir, [facility] [place] [address] Assigned MTM Pharmacist 04/07/22 Livan Sharif MD [address] [facility] [address] [place], [place] 6[address] Cardiovascular Disease 05/14/22 Catherine Cm MD 6405 [facility] [address] [place] [address] Cardiovascular Disease 07/21/22 Valery Veronica, PA-C [address] [place] [address] 642915 Physician Community Planning Technician Dermatology 07/21/22 Brea Quinn APRN FLOOR COVERING PRINTER ASSISTANT [address] [place] [address] 245575 Nurse Practitioner Dermatology 09/21/22 Brea Quinn APRN FLOOR COVERING PRINTER ASSISTANT [address] [place] [address] Assigned Surgical Provider 10/09/22 05/01/24 [place] [address] [place] [address] [address] Assigned Musculoskeletal Provider 10/09/22 05/01/24 Alfonso Renteria MD [address] [facility] 200 [place], [place] [address]886 Assigned Neuroscience Provider 04/02/23 Radha Lomeli APRN FLOOR COVERING PRINTER ASSISTANT 6405 [facility] LISETH [facility]00 [place] [address] Assigned Heart and Vascular Provider 05/28/23 Jelena David OD [address] [place] [address] MD Ophthalmology 06/15/23 Pao Joseph, RN Personal Advocate & Liaison (PAL) Nurse 08/01/23 11/07/23 Esha Grimm PA-C [address] [place] [address] Assigned PCP 07/16/23 Valery Veronica PA-C [address] [place] [address] 291935 Physician Community Planning Technician Dermatology 09/19/23 Rey Tay MD [address] [place] [address] Gastroenterology 09/20/23 Rocky Zepeda DO [address] [place] [address] 937525 Physician Gastroenterology 09/20/23 Philip Dumont MD [address] [place] [address] Physician Ophthalmology 09/22/23 Meredith Carrera PA-C [address] [place] [address] 191205 Assigned Gastroenterology Provider 11/01/23 Neil Kent MD [address] [address] Dermatology 11/02/23 [place] [address] [place] [address] 038667 Neurological Surgery 12/26/23 Audrey Waite PA-C 500 [place] [address] Physician Community Planning Technician Dermatology 02/28/24 Valery Veronica PA-C [id number] [place] [address] Physician Community Planning Technician Dermatology 04/10/24 Herminia Hatch MD [facility]5 [place], [place] 63[address] Assigned Rheumatology Provider 07/02/24 documented as of this encounter
--- OUTSIDE RECORDS SUMMARY | 2024-07-22 20:42 | XMS_ITS | Encounter Summary ---
Author Organization [facility] Address [address] [place] [address] Care Team Providers Care Log Carrier Operator Name Role Phone Diana Desir [facility] Unavailable [phone] Rain Galaviz PA-C Unavailable [phone] Tavia Wyatt MD Unavailable Erica Farrell APRN DRYWALL STRIPPER HELPER Unavailable Rich Barrett MD Unavailable [phone] Neil Kent MD Unavailable Diana Desir [facility] Unavailable Livan Sharif MD Unavailable Catherine Cm MD Unavailable + Valery Veronica PA-C Unavailable [phone] Brea Quinn STUNT DOUBLE DRYWALL STRIPPER HELPER Unavailable Brea Quinn STUNT DOUBLE DRYWALL STRIPPER HELPER Unavailable Jose Francisco Johnson MD Unavailable Alfonso Renteria MD Unavailable [phone] Esha Grimm PA-C Primary Care Provider Radha Lomeli APRN DRYWALL STRIPPER HELPER Unavailable Jelena David OD Unavailable Pao Joseph RN Unavailable Unavailable Esha Grimm PA-C Unavailable [phone] Valery Veronica PA-C Unavailable Rey Tay MD Unavailable Rocky Zepeda DO Unavailable Philip Dumont MD Unavailable [phone] Meredith Carrera PA-C Unavailable Neil Kent MD Unavailable Juan Pablo Emmanuel MD Unavailable Audrey Waite PA-C Unavailable [phone] Valery Veronica PA-C Unavailable Herminia Hatch MD Unavailable Encounter Details Date Type Department Care Team (Late st Contact Info) Description 08/10/2023 [facility] [address] [address] Esha Grimm PA-C [id number] [place] [address] Social History Tobacco Use Types Packs/Day [...] exercise at this level? 30 min 03/10/2023 [place] Depression Scale Answer Date Recorded [...] PM CDT Legal Sex Female 4:13 AM SERVICE COUNTER CASHIER Gender Identity Female 03/02/2021 5:45 PM CDT Sexual Orientation Straight 02/28/2020 12 :51 AM CDT documented as of this encounter Miscellaneous Notes * Telephone Encounter - Asiya Reddy RN - 08/10/2023 11:40 AM SERVICE COUNTER CASHIER Esha- see [facility] [employer] message below. Patient did call to see if E-Visit would be addressed today. No immediate concern at this time. Advised UC if needed sooner. Asiya Reddy RN ICE COUNTER CASHIER documented in this encounter Plan of Treatment Upcoming Encounters Date Type Department Care Team (Late st Contact Info) Description 10/23/2024 9:30 AM CDT Office Visit [facility] Neurology [facility] - [address], [address] [place] [address] [place] [address] [place], [place] [id number] Johnny Penn MD [address] [place], [place] [address]4485 11/28/2024 7:45 AM CDT Virtual Visit [facility] Gastroenterology Clinic [address] 4th [place] [phone] Meredith Carrera PA-C [address] [place] [address] [id number] documented as of this encounter Visit Diagnoses Not on filedocumented in this encounter Additional Health Concerns Infection Onset Date Last Indicated Resolved Time Rule Out COVID-19 12/26/2023 12/26/2023 12/26/2023 9:50 AM CDT Rule Out COVID-19 04/09/2024 04/09/2024 04/10/2024 6:48 PM CDT Assessment Noted Time PHQ-9 Depression Total Score: 4 06/20/20 23 8:40 AM SERVICE COUNTER CASHIER documented as of this encounter Care Teams Log Carrier Operator Relationship Specialty Start Date End Date Esha Grimm PA-C [address] [place] [address] PCP - General Family Medicine 05/04/23 Diana Desir, [facility] [address] [place], [place] [address] Pharmacist Pharmacist 04/17/21 Rain Galaviz PA-C [address] [place] [address] [address] [facility] [place] [address] Physician Speech Language Pathologist Assistant Dermatology 04/28/21 Tavia Wyatt MD [address] [place] [address] [address] [facility] [place] [phone] Dermatology 07/14/21 Erica Farrell APRN DRYWALL STRIPPER HELPER [address] [place], [place] [address] Nurse Practitioner Cardiovascular Disease 09/09/21 Rich Barrett MD [address] 266[address] Physician Ophthalmology 01/21/22 Neil Kent MD [address] [place] [address] 680565 Dermatology 02/24/22 [facility] 3033 [place], [place] 411276 Assigned [place] Pharmacist 04/07/22 Livan Sharif MD [address] [place] 8[address]25 Cardiovascular Disease 05/14/22 Catherine Cm MD [address] [facility] [address] [place] 309635 Cardiovascular Disease 07/21/22 Valery Veronica, PA-C [address] [place] [address] 105505 Physician Speech Language Pathologist Assistant Dermatology 07/21/22 Brea Quinn APRN DRYWALL STRIPPER HELPER 500 [place] [address] Nurse Practitioner Dermatology 09/21/22 Brea Quinn APRN DRYWALL STRIPPER HELPER 6401 [facility] [place] [address] Assigned Surgical Provider 10/09/22 05/01/24 [place] [address] [address] [facility] 300 [place] [address] Assigned Musculoskeletal Provider 10/09/22 05/01/24 Alfonso Renteria MD 5775 [facility] 200 [place], [place] 783176 Assigned Neuroscience Provider 04/02/23 Radha Lomeli APRN DRYWALL STRIPPER HELPER 6405 [facility] [address] [place] [address] Assigned Heart and Vascular Provider 05/28/23 Jelena David OD [address] [place] [address] Ophthalmology 06/15/23 Pao Joseph, RN Personal Advocate & Liaison (PAL) Nurse 08/01/23 11/07/23 Esha Grimm PA-C [address] [place] [phone] Assigned PCP 07/16/23 Valery Veronica PA-C 909 [place], [place] 903965 Physician Speech Language Pathologist Assistant Dermatology 09/19/23 Rey Tay MD 909 [place], [place] 426285 MD Gastroenterology 09/20/23 Rocky Zepeda DO 500 [place] [address] Physician Gastroenterology 09/20/23 Philip Dumont MD 516 [place], [place] 502655 Physician Ophthalmology 09/22/23 Meredith Carrera PA-C 909 [place], [place] 618405 Assigned Gastroenterology Provider 11/01/23 Neil Kent MD [address] [place] [address] 988440 Dermatology 11/02/23 [place] [address] [address] [facility] [place], [place] 779557 Neurological Surgery 12/26/23 Audrey Waite PA-C 500 [place] [address] Physician Speech Language Pathologist Assistant Dermatology 02/28/24 Valery Veronica PA-C 277320 [place], [place] [address] Physician Speech Language Pathologist Assistant Dermatology 04/10/24 Herminia Hatch MD [facility]5 [place] [address] Assigned Rheumatology Provider 07/02/24 documented as of this encounter
--- OUTSIDE RECORDS SUMMARY | 2024-07-22 20:42 | XMS_ITS | Encounter Summary ---
Author Organization [facility] Address [address] [place] [address] Care Team Providers Care Drafter Construction Name Role Phone Diana Desir [facility] Unavailable Rain Galaviz PA-C Unavailable Tavia Wyatt MD Unavailable Erica Farrell APRN SHOE CASER Unavailable Rich Barrett MD Unavailable [phone] Neil Kent MD Unavailable Diana Desir [facility] Unavailable Livan Sharif MD Unavailable Catherine Cm MD Unavailable + Valery Veronica PA-C Unavailable Brea Quinn SOLAR/RENEWABLE ENERGY SALES SHOE CASER Unavailable [phone] Brea Quinn SOLAR/RENEWABLE ENERGY SALES SHOE CASER Unavailable Jose Francisco Johnson MD Unavailable Alfonso Renteria MD Unavailable [phone] Esha Grimm PA-C Primary Care Provider [phone] Radha Lomeli APRN SHOE CASER Unavailable Jelena David OD Unavailable Pao Joseph RN Unavailable Unavailable Esha Grimm PA-C Unavailable [phone] Valery Veronica PA-C Unavailable Rey Tay MD Unavailable Rocky Zepeda DO Unavailable Philip Dumont MD Unavailable [phone] Meredith Carrera PA-C Unavailable [phone] Neil Kent MD Unavailable Juan Pablo Emmanuel MD Unavailable Audrey Waite PA-C Unavailable [phone] Valery Veronica PA-C Unavailable [phone] Herminia Hatch MD Unavailable Encounter Details Date Type Department Care Team (Late st Contact Info) Description 08/25/2023 [facility] [place] [facility] [address] [address] [facility] 3033 [place] [address] Social History Tobacco Use Types Packs/Day Years [...] week 03/10/2023 How often do you attend [facility]? 1 to 4 [...] [facility]ational Stress Questionnaire Answer [...] exercise at this level? 30 min 03/10/2023 Stur[place] Depression Scale Answer Date Recorded Stur[place] Depression Score 5 01/14/2021 Last EPDS Self [...] CDT Legal Sex Female 4:13 AM CARRIAGE RIDER Gender Identity Female 03/02/2021 5:45 PM CDT Sexual Orientation Straight 02/28/2020 12 :51 AM CDT documented as of this encounter Plan of Treatment Upcoming Encounters Date Type Department Care Team (Late st Contact Info) Description 10/23/2024 9:30 AM CDT Office Visit [facility] Neurology [address], [address] [place] [address] [place] [address] [place] [address] Johnny Penn MD [address] [place] 669205 11/28/2024 7:45 AM CDT Virtual Visit [facility] Gastroenterology Clinic [address] [place] [address] Meredith Carrera PA-C [address] [place] [address] documented as of this encounter Visit Diagnoses Not on filedocumented in this encounter Additional Health Concerns Infection Onset Date Last Indicated Resolved Time Rule Out COVID-19 12/26/2023 12/26/2023 12/26/2023 9:50 AM CDT Rule Out COVID-19 04/09/2024 04/09/2024 04/10/2024 6:48 PM CDT Assessment Noted Time PHQ-9 Depression Total Score: 4 06/20/20 23 8:40 AM CARRIAGE RIDER documented as of this encounter Care Teams Drafter Construction Relationship Specialty Start Date End Date Esha Grimm PA-C [address] [place] [address] PCP - General Family Medicine 05/04/23 Diana Desir, [facility] [address] [place], [place] 609[address] Pharmacist Pharmacist 04/17/21 Rain Galaviz PA-C [address] [place] [address] [place] [address] Physician Quality Assurance Intern Dermatology 04/28/21 Tavia Wyatt MD [address] [place] [address] [place] [address] Dermatology 07/14/21 Erica Farrell APRN SHOE CASER 6405 [facility] [address] [place] [address] Nurse Practitioner Cardiovascular Disease 09/09/21 Rich Barrett MD 516 [facility] 9A [place], [place] 6[address]95 Physician Ophthalmology 01/21/22 Neil Kent MD 500 [place], [place] 745975 Dermatology 02/24/22 Diana Desir, [facility] 3033 [place], [place] 872726 Assigned MTM Pharmacist 04/07/22 Livan Sharif MD [address] [place] [address]65 Cardiovascular Disease 05/14/22 Catherine Cm MD [address] [facility] [address] [place] 3[address]25 Cardiovascular Disease 07/21/22 Valery Veronica, PA-C 909 [place], [place] 485895 Physician Quality Assurance Intern Dermatology 07/21/22 Brea Quinn APRN SHOE CASER 500 [place], [place] 522185 Nurse Practitioner Dermatology 09/21/22 Brea Quinn APRN SHOE CASER 6401 [facility] [place] [address] Assigned Surgical Provider 10/09/22 05/01/24 [place] [address] [place] [address] Assigned Musculoskeletal Provider 10/09/22 05/01/24 Alfonso Renteria MD [address] [facility] 200 [place], [place] 5[address]26 Assigned Neuroscience Provider 04/02/23 Radha Lomeli, ARLENE SHOE CASER 6405 [facility] [address] [place] 644205 Assigned Heart and Vascular Provider 05/28/23 Jelena David OD [address] [place] [address] Ophthalmology 06/15/23 Pao Joseph, VJ Personal Advocate & Liaison (PAL) Nurse 08/01/23 11/07/23 Esha Grimm PA-C [address] [place] [address] Assigned PCP 07/16/23 Valery Veronica PA-C [address] [place] [address] 391525 Physician Quality Assurance Intern Dermatology 09/19/23 Rey Tay MD [address] [place] [address] 188405 Gastroenterology 09/20/23 Rocky Zepeda DO [address] [place] [address] 669545 Physician Gastroenterology 09/20/23 Philip Dumont MD 516 [place] [address] Physician Ophthalmology 09/22/23 Meredith Carrera PA-C [address] [place] [address] Assigned Gastroenterology Provider 11/01/23 Neil Kent MD [address] [address] 711190 MD Dermatology 11/02/23 [place] [address] 361427 Neurological Surgery 12/26/23 Audrey Waite PA-C [address] [place] [address] 364555 Physician Quality Assurance Intern Dermatology 02/28/24 Valery Veronica PA-C 982850 99 [place] [address] Physician Quality Assurance Intern Dermatology 04/10/24 Herminia Hatch MD 1875 [place] [address] Assigned Rheumatology Provider 07/02/24 documented as of this encounter
--- OUTSIDE RECORDS SUMMARY | 2024-07-22 20:42 | XMS_ITS | Encounter Summary ---
Author Organization [place] Address [address] [place] [address] Care Team Providers Care Tire Stripper Name Role Phone Diana Desir [facility] Unavailable Rain Galaviz PA-C Unavailable Tavia Wyatt MD Unavailable [phone] Erica Farrell APRN ENFORCEMENT OFFICER Unavailable Rich Barrett MD Unavailable [phone] Neil Kent MD Unavailable Diana Desir [facility] Unavailable Livan Sharif MD Unavailable Catherine Cm MD Unavailable + Valery Veronica-C Unavailable [phone] Brea Quinn HEAD OF HOUSEKEEPING ENFORCEMENT OFFICER Unavailable Brea Quinn HEAD OF HOUSEKEEPING ENFORCEMENT OFFICER Unavailable Jose Francisco Johnson MD Unavailable Sydnie Martinez RN Unavailable Unavailable Alfonso Renteria MD Unavailable [phone] Esha Grimm PA-C Primary Care Provider [phone] Radha Lomeli APRN ENFORCEMENT OFFICER Unavailable Jelena David OD Unavailable Pao Joseph RN Unavailable Unavailable Esha Grimm PA-C Unavailable [phone] Valery Veronica PA-C Unavailable Rey Tay MD Unavailable Rocky Zepeda DO Unavailable Philip Dumont MD Unavailable [phone] Meredith Carrera PA-C Unavailable Neil Kent MD Unavailable Juan Pablo Emmanuel MD Unavailable Audrey Waite PA-C Unavailable [phone] Valery Veronica PA-C Unavailable [phone] Herminia Hatch MD Unavailable Encounter Details Date Type Department Care Team (Late st Contact Info) Description 07/27/2023 MyC Medical Advice [address] [address] Diana Desir, [facility] [address] [place] [address] Social History Tobacco Use Types Packs/Day Years [...] week 03/10/2023 How often do you attend [facility] or druze services? 1 to 4 times [...] exercise at this level? 30 min 03/10/2023 Coello Depression Scale Answer Date Recorded Coello Depression Score 5 01/14/2021 Last EPDS Self [...] PM CDT Legal Sex Female 4:13 AM LIVE IN HOUSEKEEPER Gender Identity Female 03/02/2021 5:45 PM CDT Sexual Orientation Straight 02/28/2020 12 :51 AM CDT documented as of this encounter Plan of Treatment Upcoming Encounters Date Type Department Care Team (Late st Contact Info) Description 10/23/2024 9:30 AM CDT Office Visit [facility] Neurology [address], [address] [place] [address] [place] [address] [address] [address] Johnny Penn MD [address] [place] [id number] 11/28/2024 7:45 AM CDT Virtual Visit [facility] Gastroenterology Clinic [address] 4th [place] [address] Meredith Carrera PA-C [address] [place] [address] documented as of this encounter Visit Diagnoses Not on filedocumented in this encounter Additional Health Concerns Infection Onset Date Last Indicated Resolved Time Rule Out COVID-19 12/26/2023 12/26/2023 12/26/2023 9:50 AM CDT Rule Out COVID-19 04/09/2024 04/09/2024 04/10/2024 6:48 PM CDT Assessment Noted Time PHQ-9 Depression Total Score: 4 06/20/20 23 8:40 AM LIVE IN HOUSEKEEPER documented as of this encounter Care Teams Tire Stripper Relationship Specialty Start Date End Date Esha Grimm PA-C [address] [place] [phone] PCP - General Family Medicine 05/04/23 Diana Desir, [facility] [address] [place], [place] [address] Pharmacist Pharmacist 04/17/21 Rain Galaviz PA-C [address] [place] [address] [address] [facility] [address] Physician Machine Stitcher Dermatology 04/28/21 Tavia Wyatt MD [address] [place] [address] [address] [place] [id number] Dermatology 07/14/21 Erica Farrell APRN ENFORCEMENT OFFICER 6405 [facility] [address] [place] [address] Nurse Practitioner Cardiovascular Disease 09/09/21 Rich Barrett MD 516 [facility] 9A [place], [place] 4[address] Physician Ophthalmology 01/21/22 Neil Kent MD 500 [place], [place] 5[address] Dermatology 02/24/22 Diana Desir, [facility] 3033 [place], [place] 418116 Assigned [place] Pharmacist 04/07/22 Livan Sharif MD [address] [facility] [address] [place] [address] Cardiovascular Disease 05/14/22 Catherine Cm MD 6405 [facility] [address] [place] 2839200 [place] [address] Cardiovascular Disease 07/21/22 Valery Veronica, PA-C 909 [place], [place] 662285 Physician Machine Stitcher Dermatology 07/21/22 Brea Quinn APRN ENFORCEMENT OFFICER 500 [place], [place] 823275 Nurse Practitioner Dermatology 09/21/22 Brea Quinn APRN ENFORCEMENT OFFICER 6401 [facility] [place] 302282 Assigned Surgical Provider 10/09/22 05/01/24 [place] [address] [address] [place] [address] Assigned Musculoskeletal Provider 10/09/22 05/01/24 Sydnie Martinez RN Personal Advocate & Liaison (PAL) Family Medicine 03/28/23 07/31/23 Alfonso Renteria MD 5775 [facility] 200 [place] [address] Assigned Neuroscience Provider 04/02/23 Radha Lomeli APRN ENFORCEMENT OFFICER 6405 [facility] [address] [place] [address] Assigned Heart and Vascular Provider 05/28/23 Jelena David OD 3305 [facility] [place] [address] Ophthalmology 06/15/23 Pao Joseph, VJ Personal Advocate & Liaison (PAL) Nurse 08/01/23 11/07/23 Esha Grimm PA-C [address] [place] [address] Assigned PCP 07/16/23 Valery Veronica PA-C 909 [place], [place] 122975 Physician Machine Stitcher Dermatology 09/19/23 Rey Tay MD 909 [place], [place] 865045 Gastroenterology 09/20/23 Rocky Zepeda DO 500 [place] [address] Physician Gastroenterology 09/20/23 Philip Dumont MD 6 [place] [address] Physician Ophthalmology 09/22/23 Meredith Carrera PA-C [address] [place] [address] Assigned Gastroenterology Provider 11/01/23 Neil Kent MD [address] [address] MD Dermatology 11/02/23 [place] [address] [place] [address] [address] Neurological Surgery 12/26/23 Audrey Waite PA-C 500 [place] [address] Physician Machine Stitcher Dermatology 02/28/24 Valery Veronica PA-C [address] [place] [address] Physician Machine Stitcher Dermatology 04/10/24 Herminia Hatch MD [facility]5 [place], [place] [address] Assigned Rheumatology Provider 07/02/24 documented as of this encounter
--- OUTSIDE RECORDS SUMMARY | 2024-07-22 20:42 | XMS_ITS | Encounter Summary ---
Author Organization [place] Address [address] [place] [address] Care Team Providers Care Fruit And Vegetable Factory Worker Name Role Phone Diana Desir [facility] Unavailable Rain Galaviz PA-C Unavailable [phone] Tavia Wyatt MD Unavailable Erica Farrell APRN WAXING MACHINE OPERATOR Unavailable Rich Barrett MD Unavailable [phone] Neil Kent MD Unavailable Diana Desir [facility] Unavailable Livan Sharif MD Unavailable Catherine Cm MD Unavailable + Valery Veronica PA-C Unavailable [phone] Brea Quinn LANGUAGE PATHOLOGIST WAXING MACHINE OPERATOR Unavailable Brea Quinn LANGUAGE PATHOLOGIST WAXING MACHINE OPERATOR Unavailable Jose Francisco Johnson MD Unavailable Alfonso Renteria MD Unavailable [phone] Esha Grimm PA-C Primary Care Provider Radha Lomeli APRN WAXING MACHINE OPERATOR Unavailable Jelena David OD Unavailable Pao Joseph RN Unavailable Unavailable Esha Grimm PA-C Unavailable [phone] Valery Veronica PA-C Unavailable [phone] Rey Tay MD Unavailable Rocky Zepeda DO Unavailable Philip Dumont MD Unavailable [phone] Meredith Carrera PA-C Unavailable [phone] Neil Kent MD Unavailable Juan Pablo Emmanuel MD Unavailable [phone] Audrey Waite PA-C Unavailable [phone] Valery Veronica PA-C Unavailable Herminia Hatch MD Unavailable Encounter Details Date Type Department Care Team (Late st Contact Info) Description 08/11/2023 [facility] Medical Advice [address] [address] Pao Joseph, RN Social History [...] Score 0 06/20/2023 [facility] - Occupational Stress Questionnaire Answer [...] exercise at this level? 30 min 03/10/2023 Huffman Depression Scale Answer Date Recorded Huffman Depression Score 5 01/14/2021 Last EPDS Self [...] PM CDT Legal Sex Female 4:13 AM SPLITTER OPERATOR Gender Identity Female 03/02/2021 5:45 PM CDT Sexual Orientation Straight 02/28/2020 12 :51 AM CDT documented as of this encounter Plan of Treatment Upcoming Encounters Date Type Department Care Team (Late st Contact Info) Description 10/23/2024 9:30 AM CDT Office Visit [facility] Neurology [address] [place] [address] [place] [address] [place] [address] Johnny Penn MD [address] [facility] [place] [address] 11/28/2024 7:45 AM CDT Virtual Visit [facility] Gastroenterology Clinic [address] 4th [place] [address] Meredith Carrera PA-C [address] [place] [address] documented as of this encounter Visit Diagnoses Not on filedocumented in this encounter Additional Health Concerns Infection Onset Date Last Indicated Resolved Time Rule Out COVID-19 12/26/2023 12/26/2023 12/26/2023 9:50 AM CDT Rule Out COVID-19 04/09/2024 04/09/2024 04/10/2024 6:48 PM CDT Assessment Noted Time PHQ-9 Depression Total Score: 4 06/20/20 23 8:40 AM SPLITTER OPERATOR documented as of this encounter Care Teams Fruit And Vegetable Factory Worker Relationship Specialty Start Date End Date Esha Grimm PA-C [address] [place] [address] PCP - General Family Medicine 05/04/23 Diana Desir, [facility]3 [place] [address] Pharmacist Pharmacist 04/17/21 Rain Galaviz PA-C [address] [place] [address] [address] [place] [address] Physician Microbiology Teacher Dermatology 04/28/21 Tavia Wyatt MD [address] [place] [address] [address] 250 [place] [address] Dermatology 07/14/21 Erica Farrell APRN WAXING MACHINE OPERATOR [address] [place] 4330000 [place] [address] Nurse Practitioner Cardiovascular Disease 09/09/21 Rich Barrett MD [address] 242485 Physician Ophthalmology 01/21/22 Neil Kent MD 500 [place], [place] 8[address] Dermatology 02/24/22 Diana Desir, [facility] 3033 [place] [address] Assigned MTM Pharmacist 04/07/22 Livan Sharif MD [address] [place] [address] Cardiovascular Disease 05/14/22 Catherine Cm MD [address] [place] [address] Cardiovascular Disease 07/21/22 Valery Veronica, PA-C 9 [place], [place] 0[address] Physician Microbiology Teacher Dermatology 07/21/22 Brea Quinn APRN WAXING MACHINE OPERATOR 500 [place] [address] Nurse Practitioner Dermatology 09/21/22 Brea Quinn APRN WAXING MACHINE OPERATOR [address] [place], [place] [address] [facility] [place] [address] Assigned Surgical Provider 10/09/22 05/01/24 [place] [address] RA[address] [place] [address] 144187 Assigned Musculoskeletal Provider 10/09/22 05/01/24 Alfonso Renteria MD 5775 [facility] [address] 200 [place] [address] Assigned Neuroscience Provider 04/02/23 Radha Lomeli, ARLENE WAXING MACHINE OPERATOR 6405 [facility] [address] [place] [address] Assigned Heart and Vascular Provider 05/28/23 Jelena David OD [address] [facility] [place] [address] Ophthalmology 06/15/23 Pao Joseph, VJ Personal Advocate & Liaison (PAL) Nurse 08/01/23 11/07/23 Esha Grimm PA-C [address] [place] [address] Assigned PCP 07/16/23 Valery Veronica PA-C [address] [place] [address] 936225 Physician Microbiology Teacher Dermatology 09/19/23 Rey Tay MD [address] [place] [address] Gastroenterology 09/20/23 Rocky Zepeda DO [address] [place] [address] 241905 Physician Gastroenterology 09/20/23 Philip Dumont MD [address] [place] [address] Physician Ophthalmology 09/22/23 Meredith Carrera PA-C [address] [place] [address] Assigned Gastroenterology Provider 11/01/23 Neil Kent MD [address] [address] Dermatology 11/02/23 [place] [address] [address] Neurological Surgery 12/26/23 Audrey Waite PA-C [address] [place] [address] Physician Microbiology Teacher Dermatology 02/28/24 Valery Veronica PA-C 038143 [place] [address] Physician Microbiology Teacher Dermatology 04/10/24 Herminia Hatch MD [facility]5 [place], [place] [address] Assigned Rheumatology Provider 07/02/24 documented as of this encounter
--- OUTSIDE RECORDS SUMMARY | 2024-07-22 20:43 | XMS_ITS | Encounter Summary ---
Author Organization [place] Address [address] [place] [address] Care Team Providers Care Geological Technical Officer Name Role Phone Lita Oseguera Unavailable Unavailable Marija Edgar APRN AIRCRAFT PNEUDRAULICS REPAIRER Primary Care Provider + Marija Edgar APRN AIRCRAFT PNEUDRAULICS REPAIRER Unavailable [phone] Keisha Dotson MD Unavailable [phone] Diana Desir [facility] Unavailable Rain Galaviz PA-C Unavailable Tavia Wyatt MD Unavailable [phone] Erica Farrell APRN AIRCRAFT PNEUDRAULICS REPAIRER Unavailable Rich Barrett MD Unavailable [phone] Neil Kent MD Unavailable Diana Desir [facility] Unavailable [phone] Livan Sharif MD Unavailable Catherine Cm MD Unavailable + Valery Veronica PA-C Unavailable [phone] Catherine Cm MD Unavailable + Brea Quinn SOFT WORK WRAPPER LAYER AND EXAMINER AIRCRAFT PNEUDRAULICS REPAIRER Unavailable Brea Quinn APRN AIRCRAFT PNEUDRAULICS REPAIRER Unavailable Jose Francisco Johnson MD Unavailable Livan Sharif MD Unavailable Catherine Cm MD Unavailable + Sydnie Martinez RN Unavailable Unavailable Alfonso Renteria MD Unavailable [phone] Esha Grimm PA-C Primary Care Provider Cheng Todd PA-C Unavailable Radha Lomeli SOFT WORK WRAPPER LAYER AND EXAMINER AIRCRAFT PNEUDRAULICS REPAIRER Unavailable Jelena David OD Unavailable Pao Joseph RN Unavailable Unavailable Esha Grimm PA-C Unavailable [phone] Valery Veronica PA-C Unavailable Rey Tay MD Unavailable Rocky Zepeda DO Unavailable Philip Dumont MD Unavailable Meredith Carrera PA-C Unavailable Neil Kent MD Unavailable Juan Pablo Emmanuel MD Unavailable [phone] Audrey Waite PA-C Unavailable JeremíasValery damon PA-C Unavailable [phone] Herminia Hatch MD Unavailable Encounter Details Date Type Department Care Team (Late st Contact Info) Description 10/22/2022 [facility] Sports Medicine [facility] [address] [facility] [address] [place] [address] [place] [address] [place] [address] Social History Tobacco Use Types [...] How often do you attend [facility]aritan or samaritan serv ices? Never 09/22/2021 Do [...] Answer Date Recorded PHQ-2 Score 1 10/11/2022 [facility] - Occupational Stress Questionnaire Answer [...] in a custodial (including now)? No 09/22/2021 [place] Depression Scale Answer Date Recorded [place] Depression Score 5 01/14/2021 Last EPDS Self Harm Result Not on file 01/14 Education Answer Date Recorded What is the highest level of school you have completed or the highest degree you have received? 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 ENVIRONMENTAL SERVICES SPECIALIST Gender Identity Female 03/02/2021 5:45 PM [...] Description 10/23/2024 9:30 AM CDT Office Visit [facility] Neurology [address] [place] [address] [place] [address] [place], [place] [address]25[address] Johnny Penn MD 3207 [place], [place] [address] 11/28/2024 7:45 AM CDT Virtual Visit [facility] Gastroenterology Clinic [address] 4th [place] [address] Meredith Carrera PA-C [address] [place] [address] 014035 documented as of this encounter Visit Diagnoses [...] documented as of this encounter Care Teams Geological Technical Officer Relationship Specialty Start Date End Date Marija Edgar APRN AIRCRAFT PNEUDRAULICS REPAIRER PCP - General Nurse Practitioner 04/30/20 04/14/23 Esha Grimm PA-C [address] [place] [address] PCP - General Family Medicine 05/04/23 Lita Oseguera Personal Advocate & Liaison (PAL) 02/28/20 03/27/23 Marija Edgar APRN AIRCRAFT PNEUDRAULICS REPAIRER Assigned PCP 06/08/20 04/29/23 Keisha Dotson MD 909 [place], [place] 551835 Assigned Neuroscience Provider 06/04/20 04/01/23 Diana Desir [facility] 3033 [place], [place] [id number] Pharmacist Pharmacist 04/17/21 Rain Galaviz PA-C [address] [place] [address] [address] [place] [address] Physician Plant Attendant Or Assistant Operator Dermatology 04/28/21 Tavia Wyatt MD [address] [place] [address] [address] [place] [address] Dermatology 07/14/21 Erica Farrell APRN AIRCRAFT PNEUDRAULICS REPAIRER [address] [place] [address] Nurse Practitioner Cardiovascular Disease 09/09/21 Rich Barrett MD [address] [place] [address]16895 Physician Ophthalmology 01/21/22 Neil Kent MD 500 [place], [place] 498245 Dermatology 02/24/22 Diana Desir, [facility] [address] [place] [address] Assigned MTM Pharmacist 04/07/22 Livan Sharif MD [address] [place] [address]99[address] Cardiovascular Disease 05/14/22 Catherine Cm MD [address] [place] [address] Cardiovascular Disease 07/21/22 Valery Veronica PA-C 909 [place] [address] Physician Plant Attendant Or Assistant Operator Dermatology 07/21/22 Catherine Cm MD [address] [facility]00 [place] [address] Assigned Heart and Vascular Provider 07/24/22 11/05/22 Brea Quinn APRN AIRCRAFT PNEUDRAULICS REPAIRER [address] [place] [address]645 Nurse Practitioner Dermatology 09/21/22 Brea Quinn APRN AIRCRAFT PNEUDRAULICS REPAIRER 6401 [place], [place] 257762 Assigned Surgical Provider 10/09/22 05/01/24 [place] [address] [address] Assigned Musculoskeletal Provider 10/09/22 05/01/24 Livan Sharif MD [address] [facility] [address] [place] [address] Assigned Heart and Vascular Provider 11/06/22 11/12/22 Catherine Cm MD [address] [facility] [address] [place] [address] Assigned Heart and Vascular Provider 11/13/22 05/27/23 Sydnie Martinez RN Personal Advocate & Liaison (PAL) Family Medicine 03/28/23 07/31/23 Alfonso Renteria MD 5775 [facility] [address] 200 [place] [address] Assigned Neuroscience Provider 04/02/23 Cheng Todd PA-C [address] [place] [address] Assigned PCP 04/30/23 07/15/23 Radha Lomeli, ARLENE AIRCRAFT PNEUDRAULICS REPAIRER 6405 [facility] [address] [place], [place] [address] Assigned Heart and Vascular Provider 05/28/23 Jelena David OD [address] [facility] [place] [address] Ophthalmology 06/15/23 Pao Joseph, VJ Personal Advocate & Liaison (PAL) Nurse 08/01/23 11/07/23 Esha Grimm PA-C [address] [place] [address] Assigned PCP 07/16/23 Valery Veronica PA-C [address] [place] [address] Physician Plant Attendant Or Assistant Operator Dermatology 09/19/23 Rey Tay MD [address] [place] [address] 736655 Gastroenterology 09/20/23 Rocky Zepeda DO [address] [place] [address] 395195 Physician Gastroenterology 09/20/23 Philip Dumont MD 516 [place] [address] Physician Ophthalmology 09/22/23 Meredith Carrera PA-C 909 [place], [place] 602375 Assigned Gastroenterology Provider 11/01/23 Neil Kent MD [address] [address] MD Dermatology 11/02/23 [place] [address] 132517 Neurological Surgery 12/26/23 Audrey Waite PA-C 500 [place], [place] 409735 Physician Plant Attendant Or Assistant Operator Dermatology 02/28/24 Valery Veronica PA-C [address] [place] [address] Physician Plant Attendant Or Assistant Operator Dermatology 04/10/24 Herminia Hatch MD [facility]5 [place] [address] Assigned Rheumatology Provider 07/02/24 documented as of this encounter
--- OUTSIDE RECORDS SUMMARY | 2024-07-22 20:43 | XMS_ITS | Encounter Summary ---
Author Organization [facility] Address [address] [place] [address] Care Team Providers Care Wheel Aligner Name Role Phone Lita Oseguera Unavailable Unavailable Marija Edgar APRN CITY TAX AUDITOR Primary Care Provider + Marija Edgar APRN CITY TAX AUDITOR Unavailable [phone] Keisha Dotson MD Unavailable [phone] Diana Desir [facility] Unavailable Rain Galaviz PA-C Unavailable Tavia Wyatt MD Unavailable [phone] Erica Farrell APRN CITY TAX AUDITOR Unavailable Rich Barrett MD Unavailable [phone] Neil Kent MD Unavailable Diana Desir [facility] Unavailable Livan Sharif MD Unavailable Catherine Cm MD Unavailable + Valery Veronica PA-C Unavailable [phone] Catherine Cm MD Unavailable + Brea Quinn CUSTOMER SUPPORT SPECIALIST CITY TAX AUDITOR Unavailable Brea Quinn CUSTOMER SUPPORT SPECIALIST CITY TAX AUDITOR Unavailable Jose Francisco Johnson MD Unavailable Livan Sharif MD Unavailable Catherine Cm MD Unavailable + Sydnie Martinez RN Unavailable Unavailable Alfonso Renteria MD Unavailable [phone] Esha Grimm PA-C Primary Care Provider Cheng Todd PA-C Unavailable Radha Lomeli CUSTOMER SUPPORT SPECIALIST CITY TAX AUDITOR Unavailable Jelena David OD Unavailable [phone] Pao Joseph RN Unavailable Unavailable Esha Grimm PA-C Unavailable [phone] Valery Veronica PA-C Unavailable Rey Tay MD Unavailable Rocky Zepeda DO Unavailable Philip Dumont MD Unavailable Meredith Carrera PA-C Unavailable Neil Kent MD Unavailable Juan Pablo Emmanuel MD Unavailable [phone] Audrey Waite PA-C Unavailable [phone] JeremíasValery damon PA-C Unavailable [phone] Herminia Hatch MD Unavailable Reason for Visit * Reason Onset Date Comments Alejandrohart Communication 10/27/2022 Encounter Details Date Type Department Care Team (Late st Contact Info) Description 10/27/2022 [facility] [address] [place] [address] Brea Quinn, CUSTOMER SUPPORT SPECIALIST CITY TAX AUDITOR 6[address] [facility] [place] [address] Alejandrohart Communication (/) Social History Tobacco Use Types [...] often do you attend voodoo or moravian serv ices? Never 09/22/2021 Do [...] Answer Date Recorded PHQ-2 Score 1 10/11/2022 [facility] [...] a care home (including now)? No 09/22/2021 [place] Depression Scale Answer Date Recorded [...] PM CDT Legal Sex Female 4:13 AM BANQUET PILOT Gender Identity Female 03/02/2021 5:45 PM CDT [...] and advise. Letha Driver RN [facility] [phone] documented in this encounter Plan of Treatment Upcoming Encounters Date Type Department Care Team (Late st Contact Info) Description 10/23/2024 9:30 AM CDT Office Visit [facility] Neurology [address], [address] [place] [address] [place] [address] [place] [address] 843147 Johnny Penn MD 0133 [place], [place] 033965 11/28/2024 7:45 AM CDT Virtual Visit [facility] Gastroenterology Clinic [address] 4th [place] [address] Meredith Carrera PA-C [address] [place] [address] 144595 documented as of this encounter Visit Diagnoses [...] documented as of this encounter Care Teams Wheel Aligner Relationship Specialty Start Date End Date Marija Edgar APRN CITY TAX AUDITOR PCP - General Nurse Practitioner 04/30/20 04/14/23 Esha Grimm PA-C [address] [place] [address] PCP - General Family Medicine 05/04/23 Lita Oseguera Personal Advocate & Liaison (PAL) 02/28/20 03/27/23 aMrija Edgar APRN CITY TAX AUDITOR Assigned PCP 06/08/20 04/29/23 Keisha Dotson MD 909 [place], [place] 873025 Assigned Neuroscience Provider 06/04/20 04/01/23 Diana Desir [facility] [address]33 [place], [place] 718426 Pharmacist Pharmacist 04/17/21 Rain Galaviz PA-C [address] [place] [address] [address] [place] [address] Physician Art Appraiser Dermatology 04/28/21 Tavia Wyatt MD [address] [place] [address] [address] [place] [address] Dermatology 07/14/21 Erica Farrell APRN CITY TAX AUDITOR [address] [place] 948985 Nurse Practitioner Cardiovascular Disease 09/09/21 Rich Barrett MD [address] 423215 Physician Ophthalmology 01/21/22 Neil Kent MD 500 [place], [place] 075225 Dermatology 02/24/22 Diana Desir, [facility] 30[address] [place] [address] Assigned MTM Pharmacist 04/07/22 Livan Sharif MD [address] [place] 09[address]25 Cardiovascular Disease 05/14/22 Catherine Cm MD [address] [place] [address] Cardiovascular Disease 07/21/22 Valery Veronica PA-C 909 [place] [address] Physician Art Appraiser Dermatology 07/21/22 Catherine Cm MD [address] [facility] [place] [address] Assigned Heart and Vascular Provider 07/24/22 11/05/22 Brea Quinn APRN CITY TAX AUDITOR 500 [place], [place] 554835 Nurse Practitioner Dermatology 09/21/22 Brea Quinn APRN CITY TAX AUDITOR 6401 [place] [address] Assigned Surgical Provider 10/09/22 05/01/24 [place] [address] [address] Assigned Musculoskeletal Provider 10/09/22 05/01/24 Livan Sharif MD [address] [facility] [place] [address] Assigned Heart and Vascular Provider 11/06/22 11/12/22 Catherine Cm MD [address] [facility] [place] 619575 Assigned Heart and Vascular Provider 11/13/22 05/27/23 Sydnie Martinez RN Personal Advocate & Liaison (PAL) Family Medicine 03/28/23 07/31/23 Alfonso Renteria MD [address]75 [facility] [address] 200 [place] [address] Assigned Neuroscience Provider 04/02/23 Cheng Todd PA-C [address] [place] [address] Assigned PCP 04/30/23 07/15/23 Radha Lomeli APRN CITY TAX AUDITOR 6405 [facility] [address] [place], [place] 017125 Assigned Heart and Vascular Provider 05/28/23 Jelena David OD [address] [place] [address] Ophthalmology 06/15/23 Pao Joseph, VJ Personal Advocate & Liaison (PAL) Nurse 08/01/23 11/07/23 Esha Grimm PA-C [address] [place] [address] Assigned PCP 07/16/23 Valery Veronica PA-C [address] [place] [address] 182545 Physician Art Appraiser Dermatology 09/19/23 Rey Tay MD [address] [place] [address] 686735 Gastroenterology 09/20/23 Rocky Zepeda DO [address] [place] [address] 184455 Physician Gastroenterology 09/20/23 Philip Dumont MD 516 [place] [address] Physician Ophthalmology 09/22/23 Meredith Carrera PA-C 909 [place] [address] Assigned Gastroenterology Provider 11/01/23 Neil Kent MD [address] [address] Dermatology 11/02/23 [place] [address] [address] Neurological Surgery 12/26/23 Audrey Waite PA-C [address] [place] [address] Physician Art Appraiser Dermatology 02/28/24 Valery Veronica PA-C 974069 [address] [address] Physician Art Appraiser Dermatology 04/10/24 Herminia Hatch MD [facility] [place] [address] Assigned Rheumatology Provider 07/02/24 documented as of this encounter
--- OUTSIDE RECORDS SUMMARY | 2024-07-22 20:43 | XMS_ITS | Encounter Summary ---
Author Organization [facility] Address [address] [place] [address] Care Team Providers Care Derrick Boat Lever Operator Name Role Phone Marija Edgar APRN BEEHIVE KILN SUPERVISOR Primary Care Provider + Marija Edgar APRN BEEHIVE KILN SUPERVISOR Unavailable Diana Desir [facility] Unavailable [phone] Rain aGlaviz PA-C Unavailable Tavia Wyatt MD Unavailable Erica Farrell APRN BEEHIVE KILN SUPERVISOR Unavailable Rich Barrett MD Unavailable [phone] Neil Kent MD Unavailable Diana Desir [facility] Unavailable Livan Sharif MD Unavailable Catherine Cm MD Unavailable + Valery Veronica PA-C Unavailable Brea Quinn APRN BEEHIVE KILN SUPERVISOR Unavailable Brea Quinn APRN BEEHIVE KILN SUPERVISOR Unavailable Jose Francisco Johnson MD Unavailable Catherine Cm MD Unavailable + Sydnie Martinez RN Unavailable Unavailable Alfonso Renteria MD Unavailable [phone] Esha Grimm PA-C Primary Care Provider Cheng Todd PA-C Unavailable Radha Lomeli APRN BEEHIVE KILN SUPERVISOR Unavailable Jelena David OD Unavailable [phone] Pao Joseph RN Unavailable Unavailable Esha Grimm PA-C Unavailable [phone] Valery Veronica PA-C Unavailable Rey Tay MD Unavailable Rocky Zepeda DO Unavailable Philip Dumont MD Unavailable Meredith Carrera PA-C Unavailable Neil Kent MD Unavailable Juan Pablo Emmanuel MD Unavailable [phone] Audrey Waite PA-C Unavailable JeremíasValery damon PA-C Unavailable [phone] Herminia Hatch MD Unavailable Encounter Details Date Type Department Care Team (Late st Contact Info) Description 04/12/2023 [facility] Medical Advice [facility] Heart [facility] [address] [facility] [address] [place] [address] Livan Sharif MD [address] [place] [address] Social History Tobacco Use Types [...] How often do you attend [facility] or mandaen services? 1 to 4 [...] Answer Date Recorded PHQ-2 Score 0 03/10/2023 [facility] [place] of Occupat ional Health - Occupational Stress [...] in a longterm (including now)? No 03/10/2023 [place] Depression Scale Answer Date [...] CDT Legal Sex Female 4:13 AM MACHINE WASHER Gender Identity Female 03/02/2021 5:45 PM CDT [...] Thank you. Kim Swann, We are in [place], but asked a tech here to check the photo. He said the spot you chose is OK but he thinks we should have the [employer] techs check in with you as you may need to have some extra prep gelif you have have issues with the pads. We are reaching out to that [employer] team to let them know you are having some issues. Team [address] [place] [address] Sharif [phone] documented in this encounter Plan of Treatment Upcoming Encounters Date Type Department Care Team (Late st Contact Info) Description 10/23/2024 9:30 AM CDT Office Visit [address], [address] [place] [address] [place] [address] [place], [place] [phone] Johnny Penn MD [address] [place] [address] 11/28/2024 7:45 AM CDT Virtual Visit [facility] Gastroenterology Clinic [address] 4th [place] [phone] Meredith Carrera PA-C [address] [place] [address] documented as of this encounter Visit Diagnoses Not on filedocumented in this encounter Additional Health Concerns Infection Onset Date Last Indicated Resolved Time Rule Out COVID-19 12/26/2023 12/26/2023 12/26/2023 9:50 AM CDT Rule Out COVID-19 04/09/2024 04/09/2024 04/10/2024 6:48 PM CDT Assessment Noted Time PHQ-9 Depression Total Score: 5 03/10/20 6:49 AM CDT documented as of this encounter Care Teams Derrick Boat Lever Operator Relationship Specialty Start Date End Date Marija Edgar APRN BEEHIVE KILN SUPERVISOR PCP - General Nurse Practitioner 04/30/20 04/14/23 Esha Grimm PA-C [address] [place] [address] PCP - General Family Medicine 05/04/23 Marija Edgar APRN BEEHIVE KILN SUPERVISOR Assigned PCP 06/08/20 04/29/23 Diana Desir, [facility] 3033 [place] [address] Pharmacist Pharmacist 04/17/21 Rain Galaviz PA-C [address] [place] [address] [address] [place] [address] Physician Training And Development Rep Dermatology 04/28/21 Tavia Wyatt MD [address] [place] [address] DR RA[address] Lara [facility]IR [facility] [address] Dermatology 07/14/21 Erica Farrell APRN BEEHIVE KILN SUPERVISOR [address] [place] [address] Nurse Practitioner Cardiovascular Disease 09/09/21 Rich Barrett MD [address] [place] [address] [address] [place], [place] 213945 Physician Ophthalmology 01/21/22 Neil Kent MD 500 [place] [address] Dermatology 02/24/22 [facility] 3033 [place] [address] Assigned MTM Pharmacist 04/07/22 Livan Sharif MD [address], [facility] [address] [place] [address] Cardiovascular Disease 05/14/22 Catherine Cm MD [address] [place] [address] Cardiovascular Disease 07/21/22 Valery Veronica PA-C 909 [place] [address] Physician Training And Development Rep Dermatology 07/21/22 Brea Quinn APRN BEEHIVE KILN SUPERVISOR 500 [place] [address] Nurse Practitioner Dermatology 09/21/22 Brea Quinn APRN BEEHIVE KILN SUPERVISOR [address] [place] [address] Assigned Surgical Provider 10/09/22 05/01/24 [place] [address] [facility] 300 [place] [address] Assigned Musculoskeletal Provider 10/09/22 05/01/24 Catherine Cm MD [address] [place] 5622900 [place] [address] Assigned Heart and Vascular Provider 11/13/22 05/27/23 Sydnie Martinez RN Personal Advocate & Liaison (PAL) Family Medicine 03/28/23 07/31/23 Alfonso Renteria MD 5775 [facility] 200 [place], [place] 902276 Assigned Neuroscience Provider 04/02/23 Cheng Todd PA-C [address] [place] [address] [phone] Assigned PCP 04/30/23 07/15/23 Armani Radha ARLENE Stovall BEEHIVE KILN SUPERVISOR [address] [facility] [address] [place], [place] 591145 Assigned Heart and Vascular Provider 05/28/23 Jelena David [place] [address] [facility] [address] [place] [id number] MD Ophthalmology 06/15/23 Pao Joseph, VJ Personal Advocate & Liaison (PAL) Nurse 08/01/23 11/07/23 Esha Grimm PA-C [address] [place] [phone] Assigned PCP 07/16/23 Valery Veronica PA-C [address] [place] [address] 247725 Physician Training And Development Rep Dermatology 09/19/23 Rey Tay MD [address] [place] [address] 992665 Gastroenterology 09/20/23 Rocky Zepeda DO [address] [place] [address] 160935 Physician Gastroenterology 09/20/23 Philip Dumont MD [address] [place] [address] 527395 Physician Ophthalmology 09/22/23 Meredith Carrera PA-C [address] [place] [address] 483995 Assigned Gastroenterology Provider 11/01/23 Neil Kent MD [address] [address] Dermatology 11/02/23 [place] [address] 237227 Neurological Surgery 12/26/23 Audrey Waite PA-C 500 [place] [address] Physician Training And Development Rep Dermatology 02/28/24 Valery Veronica PA-C 232475 [address], [place] [address] Physician Training And Development Rep Dermatology 04/10/24 Herminia Hatch MD [facility]5 [place], [place] 38069125 Assigned Rheumatology Provider 07/02/24 documented as of this encounter
--- OUTSIDE RECORDS SUMMARY | 2024-07-22 20:43 | XMS_ITS | Encounter Summary ---
Author Organization [facility] Address [address] [place] [address] Care Team Providers Care Jeep Mechanic Name Role Phone Diana Desir [facility] Unavailable Rain Galaviz PA-C Unavailable Tavia Wyatt MD Unavailable Erica Farrell APRN EXECUTIVE STEWARD Unavailable Rich Barrett MD Unavailable [phone] Neil Kent MD Unavailable Diana Desir [facility] Unavailable Livan Sharif MD Unavailable Catherine Cm MD Unavailable + Valery Veronica-C Unavailable Brea Quinn AFTER SCHOOL PROGRAM DIRECTOR EXECUTIVE STEWARD Unavailable Brea Quinn AFTER SCHOOL PROGRAM DIRECTOR EXECUTIVE STEWARD Unavailable Jose Francisco Johnson MD Unavailable Sydnie Martinez RN Unavailable Unavailable Alfonso Renteria MD Unavailable [phone] Esha Grimm PA-C Primary Care Provider Cheng Todd PA-C Unavailable Radha Lomeli APRN EXECUTIVE STEWARD Unavailable Jelena David OD Unavailable Pao Joseph RN Unavailable Unavailable Esha Grimm PA-C Unavailable [phone] Valery Veronica PA-C Unavailable Rey Tay MD Unavailable Rocky Zepeda DO Unavailable Philip Dumont MD Unavailable Meredith Carrera PA-C Unavailable Neil Kent MD Unavailable Jaun Pablo Emmanuel MD Unavailable Audrey Waite PA-C Unavailable JeremíasValery damon PA-C Unavailable Herminia Hatch MD Unavailable Encounter Details Date Type Department Care Team (Late st Contact Info) Description 06/17/2023 [facility] [address] [facility], [address] [place] [address] Alfonso Renteria MD 5775 [facility] [address] 200 [place] [address] Social History Tobacco Use Types [...] Score 0 06/20/2023 [facility] [...] exercise at this level? 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 Patient continues to have a lot of dizzyness and neck pain. OW WORKER documented in this encounter Plan of Treatment Upcoming Encounters Date Type Department Care Team (Late st Contact Info) Description 10/23/2024 9:30 AM CDT Office Visit [facility] Neurology [facility] - [address], [address] [place] [phone] [place] [address] [place], [place] 880717 Johnny Penn MD [address] [place] 6[address]35 11/28/2024 7:45 AM CDT Virtual Visit [facility] Gastroenterology Clinic [address] 4th [place] [phone] Meredith Carrera PA-C [address] [place] [address] 149265 documented as of this encounter Visit Diagnoses Not on filedocumented in this encounter Additional Health Concerns Infection Onset Date Last Indicated Resolved Time Rule Out COVID-19 12/26/2023 12/26/2023 12/26/2023 9:50 AM CDT Rule Out COVID-19 04/09/2024 04/09/2024 04/10/2024 6:48 PM CDT Assessment Noted Time PHQ-9 Depression Total Score: 6 05/16/20 23 9:29 AM BARROW WORKER documented as of this encounter Care Teams Jeep Mechanic Relationship Specialty Start Date End Date Esha Grimm PA-C [address] [place] [phone] PCP - General Family Medicine 05/04/23 Diana Desir, [facility] [address] [place], [place] [address] Pharmacist Pharmacist 04/17/21 Rain Galaviz PA-C [address] [place] [address] [address] [place] [id number] Physician Assistant Professor Of Economics Dermatology 04/28/21 Tavia Wyatt MD [address] [place] [address] DR [address] [facility] [place] [phone] Dermatology 07/14/21 Erica Farrell APRN EXECUTIVE STEWARD [address] [place] 7[address]75 Nurse Practitioner Cardiovascular Disease 09/09/21 Rich Barrett MD [address] [place] [address] Physician Ophthalmology 01/21/22 Neil Kent MD [address] [place] [address] 661085 Dermatology 02/24/22 Diana Desir, [facility] 30[address] [place], [place] 147786 Assigned [facility] Pharmacist 04/07/22 Livan Sharif MD [address] [place] [address] Cardiovascular Disease 05/14/22 Cathernie Cm MD [address] [place] 630435 Cardiovascular Disease 07/21/22 Valery Veronica, PAUcheC [address] [place] [address] 817925 Physician Assistant Professor Of Economics Dermatology 07/21/22 Brea Quinn APRN EXECUTIVE STEWARD [address] [place] [address] Nurse Practitioner Dermatology 09/21/22 Brea Quinn APRN EXECUTIVE STEWARD 6401 [facility] [place] [address] Assigned Surgical Provider 10/09/22 05/01/24 [place] [address] [address] [facility] [address] [place] [address] Assigned Musculoskeletal Provider 10/09/22 05/01/24 Sydnie Martinez RN Personal Advocate & Liaison (PAL) Family Medicine 03/28/23 07/31/23 Alfonso Renteria MD 5775 [facility] 200 [place] [address] Assigned Neuroscience Provider 04/02/23 Cheng Todd PA-C [address] [place] [address] [phone] Assigned PCP 04/30/23 07/15/23 Radha Lomeli APRN EXECUTIVE STEWARD 6405 [facility] [address] [place] [address] Assigned Heart and Vascular Provider 05/28/23 Jelena David OD [address] [facility] [place] [address] Ophthalmology 06/15/23 Pao Joseph, VJ Personal Advocate & Liaison (PAL) Nurse 08/01/23 11/07/23 Esha Grimm PA-C [address] [place] [address] Assigned PCP 07/16/23 Valery Veronica PA-C [address] [place] [address] 893345 Physician Assistant Professor Of Economics Dermatology 09/19/23 Rey Tay MD [address] [place] [address] 172335 MD Gastroenterology 09/20/23 Rocky Zepeda DO [address] [place] [address] 899035 Physician Gastroenterology 09/20/23 Philip Dumont MD [address] [place] [address] 118185 Physician Ophthalmology 09/22/23 Meredith Carrera PA-C [address] [place] [address] Assigned Gastroenterology Provider 11/01/23 Neil Kent MD [address] [address] Dermatology 11/02/23 [place] [address] [place] [place] [address] Neurological Surgery 12/26/23 Audrey Waite PA-C [address] [place] [address] Physician Assistant Professor Of Economics Dermatology 02/28/24 Valery Veronica, ROVERTO [address] [address] Physician Assistant Professor Of Economics Dermatology 04/10/24 Herminia Hatch MD [address] [place] [address] [id number] Assigned Rheumatology Provider 07/02/24 documented as of this encounter
--- OUTSIDE RECORDS SUMMARY | 2024-07-22 20:43 | XMS_ITS | Encounter Summary ---
Author Organization [facility] Address [address] [place] [address] Care Team Providers Care Caustic Operator Name Role Phone Diana Desir [facility] Unavailable Rain Galaviz PA-C Unavailable Tavia Wyatt MD Unavailable Erica Farrell APRN DOCK MANAGER Unavailable Rich Barrett MD Unavailable [phone] Neil Kent MD Unavailable Diana Desir [facility] Unavailable Livan Sharif MD Unavailable Catherine Cm MD Unavailable + Valery Veronica-C Unavailable Brea Quinn HOME HEALTH SPEECH THERAPIST DOCK MANAGER Unavailable Brea Quinn HOME HEALTH SPEECH THERAPIST DOCK MANAGER Unavailable Jose Francisco Johnson MD Unavailable Sydnie Martinez RN Unavailable Unavailable Alfonso Renteria MD Unavailable [phone] Esha Grimm PA-C Primary Care Provider Cheng Todd PA-C Unavailable Radha Lomeli APRN DOCK MANAGER Unavailable Jelena David OD Unavailable Pao Joseph RN Unavailable Unavailable Esha Grimm PA-C Unavailable [phone] Valery Veronica PA-C Unavailable Rey Tay MD Unavailable Rocky Zepeda DO Unavailable Philip Dumont MD Unavailable [phone] Meredith Carrera PA-C Unavailable Neil Kent MD Unavailable Juan Pablo Emmanuel MD Unavailable [phone] Audrey Waite PA-C Unavailable JeremíasValery damon PA-C Unavailable Herminia Hatch MD Unavailable Encounter Details Date Type Department Care Team (Late st Contact Info) Description 06/15/2023 MyC Medical Advice [facility] [address] [address] Doris Levi Social History Tobacco [...] you attend [facility] or buddhism services? 1 to 4 times per year 03/10/2023 Do you belong to any clubs o r organizations such as catholic groups, unions, fraUbicom or athletic groups, or school groups? 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 Gender Identity Female 03/02/2021 5:45 PM CDT Sexual Orientation Straight 02/28/2020 12 :51 AM CDT documented as of this encounter Plan of Treatment Upcoming Encounters Date Type Department Care Team (Late st Contact Info) Description 10/23/2024 9:30 AM CDT Office Visit [facility] [address], [address] [place] [address] [place] [address] [place] [address] Johnny Penn MD [address]39 [place] [address] 11/28/2024 7:45 AM CDT Virtual Visit [facility] [address] 4th [place] [phone] Meredith Carrera PA-C [address] [place] [address] documented as of this encounter Visit Diagnoses Not on filedocumented in this encounter Additional Health Concerns Infection Onset Date Last Indicated Resolved Time Rule Out COVID-19 12/26/2023 12/26/2023 12/26/2023 9:50 AM CDT Rule Out COVID-19 04/09/2024 04/09/2024 04/10/2024 6:48 PM CDT Assessment Noted Time PHQ-9 Depression Total Score: 6 05/16/20 9:29 AM BRICK HANDLER documented as of this encounter Care Teams Caustic Operator Relationship Specialty Start Date End Date sEha Grimm PA-C [address] [place] [address] PCP - General Family Medicine 05/04/23 Diana Desir, [facility] [address] [place] [address] Pharmacist Pharmacist 04/17/21 Rain Galaviz PA-C [address] [place] [address] [address] [place] [address] Physician Chlorinator Dermatology 04/28/21 Tavia Wyatt MD [address] [place] [address] [place] [address] Dermatology 07/14/21 Erica Farrell APRN DOCK MANAGER [address] [place], [place] [address] Nurse Practitioner Cardiovascular Disease 09/09/21 Rich Barrett MD 516 [facility], CLINIC 9A [place] [address] Physician Ophthalmology 01/21/22 Neil Kent MD 500 [place], [place] 768885 Dermatology 02/24/22 Diana Desir, [facility] 3033 [place], [place] [address] Assigned [place] Pharmacist 04/07/22 Livan Sharif MD [address] [place], [place] 5[address] Cardiovascular Disease 05/14/22 Catherine Cm MD [address] [place], [place] [address] Cardiovascular Disease 07/21/22 Valery Veronica, PA-C 909 [place], [place] [address] Physician Chlorinator Dermatology 07/21/22 Brea Quinn APRN DOCK MANAGER 500 [place], [place] 219625 Nurse Practitioner Dermatology 09/21/22 Brea Quinn APRN DOCK MANAGER 6401 [facility] [place] [address] Assigned Surgical Provider 10/09/22 05/01/24 [place] [address] [place] [address] Assigned Musculoskeletal Provider 10/09/22 05/01/24 Sydnie Martinez RN Personal Advocate & Liaison (PAL) Family Medicine 03/28/23 07/31/23 Alfonso Renteria MD 5775 [facility] 200 [place] [address] Assigned Neuroscience Provider 04/02/23 Cheng Todd PA-C [address] [place] [address] [id number] Assigned PCP 04/30/23 07/15/23 Radha Lomeli, ARLENE DOCK MANAGER 6405 [facility] [address] [place] [address] Assigned Heart and Vascular Provider 05/28/23 Jelena David OD [address] [facility] [place] [address] Ophthalmology 06/15/23 Pao Joseph, VJ Personal Advocate & Liaison (PAL) Nurse 08/01/23 11/07/23 Esha Grimm PA-C [address] [place] [address] Assigned PCP 07/16/23 Valery Veronica PA-C 909 [place] [address] Physician Chlorinator Dermatology 09/19/23 Rey Tay MD 9 [place] [address] MD Gastroenterology 09/20/23 Rocky Zepeda DO 500 [place] [address] Physician Gastroenterology 09/20/23 Philip Dumont MD 6 [place] [address] Physician Ophthalmology 09/22/23 Meredith Carrera PA-C 9 [place] [address] Assigned Gastroenterology Provider 11/01/23 Neil Kent MD [address] 826540 Dermatology 11/02/23 [place] [address] [place] [address] 382817 Neurological Surgery 12/26/23 Audrey Waite PA-C 500 [place] [address] Physician Chlorinator Dermatology 02/28/24 Valery Veronica PA-C [id number] [place] [address] Physician Chlorinator Dermatology 04/10/24 Herminia Hatch MD [address] [place] [address] Assigned Rheumatology Provider 07/02/24 documented as of this encounter
--- OUTSIDE RECORDS SUMMARY | 2024-07-22 20:43 | XMS_ITS | Encounter Summary ---
Author Organization [facility] Address [address] [place] [address] Care Team Providers Care Push Button Switch Assembler Name Role Phone Lita Oseguera Unavailable Unavailable Marija Edgar APRN ACCOUNTS RECEIVABLE COORDINATOR Primary Care Provider + Marija Edgar APRN ACCOUNTS RECEIVABLE COORDINATOR Unavailable [phone] Keisha Dotson MD Unavailable [phone] Diana Desir [facility] Unavailable [phone] Rain Galaviz PA-C Unavailable [phone] Tavia Wyatt MD Unavailable Erica Farrell APRN ACCOUNTS RECEIVABLE COORDINATOR Unavailable Rich Barrett MD Unavailable [phone] Neil Kent MD Unavailable Diana Desir [facility] Unavailable [phone] Livan Sharif MD Unavailable Catherine Cm MD Unavailable + Valery Veronica PA-C Unavailable [phone] Brea Quinn PATIENT ACCOUNT SPECIALIST ACCOUNTS RECEIVABLE COORDINATOR Unavailable [phone] Brea Quinn PATIENT ACCOUNT SPECIALIST ACCOUNTS RECEIVABLE COORDINATOR Unavailable Jose Francisco Johnson MD Unavailable Catherine Cm MD Unavailable + Sydnie Martinez RN Unavailable Unavailable Alfonso Renteria MD Unavailable [phone] Esha Grimm PA-C Primary Care Provider Cheng Todd PA-C Unavailable Radha Lomeli APRN ACCOUNTS RECEIVABLE COORDINATOR Unavailable Jelena David OD Unavailable Pao Joseph RN Unavailable Unavailable Esha Grimm PA-C Unavailable Valery Veronica PA-C Unavailable [phone] Rey Tay MD Unavailable Rocky Zepeda DO Unavailable Philip Dumont MD Unavailable Meredith Carrera PA-C Unavailable [phone] Neil Kent MD Unavailable Juan Pablo Emmanuel MD Unavailable Audrey Waite PA-C Unavailable [phone] JeremíasValery damon PA-C Unavailable Herminia Hatch MD Unavailable Encounter Details Date Type Department Care Team (Late st Contact Info) Description 12/23/2022 [facility] [address] [place] [address] Lauren Claudio PA-C [address] [place] [address] Social History Tobacco Use Types [...] How often do you attend catholic or anglican serv ices? Never 09/22/2021 Do [...] Answer Date Recorded PHQ-2 Score 1 10/11/2022 Citizen Of [place] [facility] Occupat ional Health - Occupational Stress [...] in a longterm (including now)? No 09/22/2021 [place] Depression Scale Answer Date Recorded [place] Depression Score 5 01/14/2021 Last EPDS Self Harm Result Not on file 01/14 Education Answer Date Recorded What is the highest level of school you have completed or the highest degree you have received? 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 Gender Identity Female 03/02/2021 5:45 [...] Description 10/23/2024 9:30 AM CDT Office Visit [facility] [address] [place] [address], [address] [place] [address] [place] [address] [place] [address] Johnny Penn MD 0621 [facility] [place] [address] 11/28/2024 7:45 AM CDT Virtual Visit [facility] [address] [place] [address] Meredith Carrera PA-C [address] [place] [address] documented as of this encounter Visit [...] documented as of this encounter Care Teams Push Button Switch Assembler Relationship Specialty Start Date End Date Marija Edgar APRN ACCOUNTS RECEIVABLE COORDINATOR PCP - General Nurse Practitioner 04/30/20 04/14/23 Esha Grimm PA-C [address] [place] [address] PCP - General Family Medicine 05/04/23 Lita Oseguera Personal Advocate & Liaison (PAL) 02/28/20 03/27/23 Marija Edgar APRN ACCOUNTS RECEIVABLE COORDINATOR Assigned PCP 06/08/20 04/29/23 Keisha Dotson MD 909 [place] [address] Assigned Neuroscience Provider 06/04/20 04/01/23 [facility] 3033 [place], [place] [address] Pharmacist Pharmacist 04/17/21 Rain Galaviz PA-C [address] [place] [address] [address] [facility] [place] [address] Physician Lump Roller Dermatology 04/28/21 Tavia Wyatt MD [address] [place] [address] [address] [facility] [place] [address] Dermatology 07/14/21 Erica Farrell APRN ACCOUNTS RECEIVABLE COORDINATOR [address] [place] [address] Nurse Practitioner Cardiovascular Disease 09/09/21 Rich Barrett MD 516 [facility], CLINIC 9A [place], [place] [address] Physician Ophthalmology 01/21/22 Neil Kent MD 500 [place] [address] Dermatology 02/24/22 [facility] 3033 [place] [address] Assigned [place] Pharmacist 04/07/22 Livan Sharif MD [address], [facility] [address] [place], [place] [address] Cardiovascular Disease 05/14/22 Catherine Cm MD 6405 [facility] [place], [place] [address] Cardiovascular Disease 07/21/22 Valery Veronica, PA-C 909 [place] [address] Physician Lump Roller Dermatology 07/21/22 Brea Quinn APRN ACCOUNTS RECEIVABLE COORDINATOR 500 [place] [address] Nurse Practitioner Dermatology 09/21/22 Brea Quinn APRN ACCOUNTS RECEIVABLE COORDINATOR 6401 [place] [address] Assigned Surgical Provider 10/09/22 05/01/24 [place] [address] [place] [address] Assigned Musculoskeletal Provider 10/09/22 05/01/24 Catherine Cm MD [address] [address] [place] [address] Assigned Heart and Vascular Provider 11/13/22 05/27/23 Sydnie Martinez RN Personal Advocate & Liaison (PAL) Family Medicine 03/28/23 07/31/23 Alfonso Renteria MD 5775 [facility] 200 [place] [address] Assigned Neuroscience Provider 04/02/23 Cheng Todd PA-C [address] [place] [address] [id number] Assigned PCP 04/30/23 07/15/23 Radha Lomeli APRN ACCOUNTS RECEIVABLE COORDINATOR [address] [place] [address] Assigned Heart and Vascular Provider 05/28/23 Jelena David OD [address] [facility] [place] [address] Ophthalmology 06/15/23 Pao Joesph, VJ Personal Advocate & Liaison (PAL) Nurse 08/01/23 11/07/23 Esha Grimm PA-C [address] [place] [address] Assigned PCP 07/16/23 Valery Veronica PA-C 9 [place] [address] Physician Lump Roller Dermatology 09/19/23 Rey Tay MD 9 [place] [address] MD Gastroenterology 09/20/23 Rocky eZpeda DO 500 [place] [address] Physician Gastroenterology 09/20/23 Philip Dumont MD 6 [place] [address] Physician Ophthalmology 09/22/23 Meredith Carrera PA-C [address] [place] [address] Assigned Gastroenterology Provider 11/01/23 Neil Kent MD [address] [address] Dermatology 11/02/23 [place] [address] [address] [facility] [place], [place] 8[address] Neurological Surgery 12/26/23 Audrey Waite PA-C 500 [place] [address] Physician Lump Roller Dermatology 02/28/24 Valery Veronica PA-C 171556 [place] [address] Physician Lump Roller Dermatology 04/10/24 Herminia Hatch MD [address] [place] [address] Assigned Rheumatology Provider 07/02/24 documented as of this encounter
--- OUTSIDE RECORDS SUMMARY | 2024-07-22 20:43 | XMS_ITS | Encounter Summary ---
Author Organization [facility] Address [address] [place] [address] Care Team Providers Care Ready Mix Truck Driver Name Role Phone Diana Desir [facility] Unavailable Rain Galaviz PA-C Unavailable Tavia Wyatt MD Unavailable Erica Farrell APRN SUPERVISOR PUBLICATIONS Unavailable Rich Barrett MD Unavailable [phone] Neil Kent MD Unavailable Diana Desir [facility] Unavailable [phone] Livan Sharif MD Unavailable Catherine Cm MD Unavailable + Valery Veronica-C Unavailable Brea Quinn MANAGER OF TIRES SALES SUPERVISOR PUBLICATIONS Unavailable Brea Quinn MANAGER OF TIRES SALES SUPERVISOR PUBLICATIONS Unavailable Jose Francisco Johnson MD Unavailable Sydnie Martinez RN Unavailable Unavailable Alfonso Renteria MD Unavailable [phone] Esha Grimm PA-C Primary Care Provider Cheng Todd PA-C Unavailable Radha Lomeli APRN SUPERVISOR PUBLICATIONS Unavailable Jelena David OD Unavailable Pao Joseph RN Unavailable Unavailable Esha Grimm PA-C Unavailable [phone] Valery Veronica PA-C Unavailable Rey Tay MD Unavailable Rocky Zepeda DO Unavailable Philip Dumont MD Unavailable Meredith Carrera PA-C Unavailable [phone] Neil Kent MD Unavailable Juan Pablo Emmanuel MD Unavailable [phone] Audrey Waite PA-C Unavailable JeremíasValery damon PA-C Unavailable [phone] Herminia Hatch MD Unavailable Reason for Visit * Reason Onset Date Comments Appointment 06/17/2023 Encounter Details Date Type Department Care Team (Late st Contact Info) Description 06/17/2023 Telephone [facility] [address] [place] [address] Esha Grimm PA-C [id number] [place] [address] Appointment Social History Tobacco Use Types [...] 0 06/20/2023 [place] [...] exercise at this level? 30 min 03/10/2023 Hoffman Depression Scale Answer Date Recorded Hoffman Depression Score 5 01/14/2021 Last EPDS Self [...] PM CDT Legal Sex Female 4:13 AM EMPLOYMENT SECURITY OFFICER Gender Identity Female 03/02/2021 5:45 PM CDT Sexual Orientation Straight 02/28/2020 12 :51 AM CDT documented as of this encounter Miscellaneous Notes * Telephone Encounter - Lulu Day - 06/17/2023 7:19 AM CST [facility] doesn't have anything, we are down providers and they are all full today Lulu Day/ Pillowcase Folder OYMENT SECURITY OFFICER * Telephone Encounter - Rosio Eller - 06/17/2023 7:13 AM CST Reason for Call: Appointment Request Patient requesting this type of appt: follow-up breast pain Requested provider: any Reason patient unable to be scheduled: Not within requested timeframe When does patient want to be seen/preferred time: today or Tuesday Comments: patient wondering if she could be worked in [facility] Could we send this information to you in [facility] or would you prefer to receive a phone call?: Patient would prefer a phone call Okay to leave a detailed message?: Yes at Home number on file [phone] (home) Call taken on 06/17/2023 at 7:13 AM by Rosio Eller OYMENT SECURITY OFFICER documented in this encounter Plan of Treatment Upcoming Encounters Date Type Department Care Team ([facility] Contact Info) Description 10/23/2024 9:30 AM CDT Office Visit [facility] Neurology [address], [address] [place] [address] [place] [address] [place] [address] [address] Johnny Penn MD 6545 [place], [place] [address] 11/28/2024 7:45 AM CDT Virtual Visit [facility] [address] [place] [phone] Meredith Carrera PA-C [address] [place] [phone] documented as of this encounter Visit Diagnoses Not on filedocumented in this encounter Additional Health Concerns Infection Onset Date Last Indicated Resolved Time Rule Out COVID-19 12/26/2023 12/26/2023 12/26/2023 9:50 AM CDT Rule Out COVID-19 04/09/2024 04/09/2024 04/10/2024 6:48 PM CDT Assessment Noted Time PHQ-9 Depression Total Score: 6 05/16/20 9:29 AM EMPLOYMENT SECURITY OFFICER documented as of this encounter Care Teams Ready Mix Truck Driver Relationship Specialty Start Date End Date Esha Grimm PA-C [address] [place] [phone] PCP - General Family Medicine 05/04/23 Diana Desir, [facility] [address] [place] [address] Pharmacist Pharmacist 04/17/21 Rain Galaviz PA-C [address] [place] [address] [address] [place] [address] Physician Bow Repairer Custom Dermatology 04/28/21 Tavia Wyatt MD [address] [place] [address] [address] [place] [address] Dermatology 07/14/21 Erica Farrell APRN SUPERVISOR PUBLICATIONS [address] 7291300 [place] [address] Nurse Practitioner Cardiovascular Disease 09/09/21 Rich Barrett MD [address] [address] Physician Ophthalmology 01/21/22 Neil Kent MD [address] [place] [address] 583085 Dermatology 02/24/22 Diana Desir, [facility] [address] [place] [address] Assigned MTM Pharmacist 04/07/22 Livan Sharif MD 6405 [facility] [address] [facility] [address] [place], [place] [address] Cardiovascular Disease 05/14/22 Catherine Cm MD [address] 9257500 [place], [place] [address]75[address] Cardiovascular Disease 07/21/22 Valery Veronica PA-C [address] [place] [address]78455 Physician Bow Repairer Custom Dermatology 07/21/22 Brea Quinn APRN SUPERVISOR PUBLICATIONS 500 [place], [place] 8[address] Nurse Practitioner Dermatology 09/21/22 Brea Quinn APRN SUPERVISOR PUBLICATIONS [address] [place] [address] 915472 Assigned Surgical Provider 10/09/22 05/01/24 [place] [address] [facility] 300 [place], [place] [address] Assigned Musculoskeletal Provider 10/09/22 05/01/24 Sydnie Martinez RN Personal Advocate & Liaison (PAL) Family Medicine 03/28/23 07/31/23 Alfonso Renteria MD [address] [facility] 200 [place], [place] 745[address] Assigned Neuroscience Provider 04/02/23 Cheng Todd PA-C [address] [place] [address] Assigned PCP 04/30/23 07/15/23 Radha Lomeli APRN SUPERVISOR PUBLICATIONS 6405 [facility] [address] [place], [place] 6055[address] Assigned Heart and Vascular Provider 05/28/23 Jelena David OD [address] [facility] [address] Ophthalmology 06/15/23 Pao Joseph, VJ Personal Advocate & Liaison (PAL) Nurse 08/01/23 11/07/23 Esha Grimm PA-C [address] [place] [address] Assigned PCP 07/16/23 Valery Veronica PA-C [address] [place] [address] 005455 Physician Bow Repairer Custom Dermatology 09/19/23 Rey Tay MD [address] [place] [address] 959605 Gastroenterology 09/20/23 Rocky Zepeda DO [address] [place] [address] 823085 Physician Gastroenterology 09/20/23 Philip Dumont MD [address] [place] [address] Physician Ophthalmology 09/22/23 Meredith Carrera PA-C [address] [place] [address] Assigned Gastroenterology Provider 11/01/23 Neil Kent MD [address] [address] Dermatology 11/02/23 [place] [address] [place] [address] [address] Neurological Surgery 12/26/23 Audrey Waite PA-C 500 [place] [address] Physician Bow Repairer Custom Dermatology 02/28/24 Valery Veronica PA-C 454829 [place] [address] Physician Bow Repairer Custom Dermatology 04/10/24 Herminia Hatch MD [facility]5 [place] [address] Assigned Rheumatology Provider 07/02/24 documented as of this encounter
--- OUTSIDE RECORDS SUMMARY | 2024-07-22 20:43 | XMS_ITS | Encounter Summary ---
Author Organization [place] Address [address] [place] [address] Care Team Providers Care Fire Alarm Repairer Name Role Phone Lita Oseguera Unavailable Unavailable Marija Edgar APRN WOODS RIDER Primary Care Provider + Marija Edgar APRN WOODS RIDER Unavailable [phone] Keisha Dotson MD Unavailable [phone] Diana Desir [facility] Unavailable Rain Galaviz PA-C Unavailable [phone] Tavia Wyatt MD Unavailable [phone] Erica Farrell APRN WOODS RIDER Unavailable Rich Barrett MD Unavailable [phone] Neil Kent MD Unavailable Diana Desir [facility] Unavailable Livan Sharif MD Unavailable Catherine Cm MD Unavailable + Valery Veronica PA-C Unavailable [phone] Catherine Cm MD Unavailable + Brea Quinn RIVET DRIVER WOODS RIDER Unavailable [phone] Brea Quinn RIVET DRIVER WOODS RIDER Unavailable Jose Francisco Johnson MD Unavailable Livan Sharif MD Unavailable Catherine Cm MD Unavailable + Sydnie Martinez RN Unavailable Unavailable Alfonso Renteria MD Unavailable [phone] Esha Grimm PA-C Primary Care Provider Cheng Todd PA-C Unavailable Radha Lomeli RIVET DRIVER WOODS RIDER Unavailable Jelena David OD Unavailable Pao Joseph RN Unavailable Unavailable Esha Grimm PA-C Unavailable [phone] Valery Veronica PA-C Unavailable Rey Tay MD Unavailable Rocky Zepeda DO Unavailable Philip Dumont MD Unavailable Meredith Carrera PA-C Unavailable Neil Kent MD Unavailable Juan Pablo Emmanuel MD Unavailable Audrey Waite PA-C Unavailable JeremíasValery damon PA-C Unavailable [phone] Herminia Hatch MD Unavailable Encounter Details Date Type Department Care Team (Late st Contact Info) Description 10/22/2022 MyC Medical Advice [facility] [id number] [place] [address] Lauren Claudio, PA-C [address] [place] [address] Social History Tobacco Use Types [...] How often do you attend holiness or amish serv ices? Never 09/22/2021 Do [...] Answer Date Recorded PHQ-2 Score 1 10/11/2022 [facility] [...] in a fpc (including now)? No 09/22/2021 [place] Depression Scale Answer Date Recorded [place] Depression Score 5 01/14/2021 Last EPDS Self Harm Result Not on file 01/14 Education Answer Date Recorded What is the highest level of school you have completed or the highest degree you have received? 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 PERINATAL SPECIALIST Gender Identity Female 03/02/2021 5:45 PM [...] CDT Office Visit [facility] Neurology [facility] [address] [place] [address], [address] [place] [address] [place] [address] [place] [address] [id number] Johnny Penn MD [address] [facility] [place] 7[address] 11/28/2024 7:45 AM CDT Virtual Visit [facility]ology [facility] [address]th [place] [phone] Meredith Carrera PA-C [address] [place] [address] 613475 documented as of this encounter Visit Diagnoses [...] as of this encounter Care Teams Fire Alarm Repairer Relationship Specialty Start Date End Date Marija Edgar APRN WOODS RIDER PCP - General Nurse Practitioner 04/30/20 04/14/23 Esha Grimm PA-C [address] [place] [address] PCP - General Family Medicine 05/04/23 Lita Oseguera Personal Advocate & Liaison (PAL) 02/28/20 03/27/23 Marija Edgar APRN WOODS RIDER Assigned PCP 06/08/20 04/29/23 Keisha Dotson MD 909 [place] [address] Assigned Neuroscience Provider 06/04/20 04/01/23 Diana Desir, [facility] 30[address] [place] [address] Pharmacist Pharmacist 04/17/21 Rain Galaviz PA-C [address] [place] [address] [place] [address] Physician Service Or Work Dispatcher Chief Dermatology 04/28/21 Tavia Wyatt MD [address] [place] [address] [place] [address] Dermatology 07/14/21 StoErica pereira APRN WOODS RIDER [address] [place] [address] Nurse Practitioner Cardiovascular Disease 09/09/21 iRch Barrett MD 516 [facility], [address] [address] Physician Ophthalmology 01/21/22 Neil Kent MD 500 [place], [place] 091795 Dermatology 02/24/22 Diana Desir, [facility] [address] [place], [place] 184956 Assigned MTM Pharmacist 04/07/22 Livan Sharif MD [address] [place] 07[address]85 Cardiovascular Disease 05/14/22 Catherine Cm MD [address] [place] 7[address]15 Cardiovascular Disease 07/21/22 Valery Veronica, PA-C 909 [place] [address] Physician Service Or Work Dispatcher Chief Dermatology 07/21/22 Catherine Cm MD [address] [place] [address] Assigned Heart and Vascular Provider 07/24/22 11/05/22 Brea Quinn APRN WOODS RIDER 500 [place] [address] Nurse Practitioner Dermatology 09/21/22 Brea Quinn APRN WOODS RIDER 6401 [place] [address] Assigned Surgical Provider 10/09/22 05/01/24 [place] [address] [address] [facility] 300 [place] [address] Assigned Musculoskeletal Provider 10/09/22 05/01/24 Livan Sharif MD 6405 [facility] [address] [facility] [address] [place] 122175 Assigned Heart and Vascular Provider 11/06/22 11/12/22 Catherine Cm MD [address] [place] [address]0100 [place] [address] Assigned Heart and Vascular Provider 11/13/22 05/27/23 Sydnie Martinez RN Personal Advocate & Liaison (PAL) Family Medicine 03/28/23 07/31/23 Alfonso Renteria MD [address] [facility] 200 [place] [address] Assigned Neuroscience Provider 04/02/23 Cheng Todd PA-C [address] [place] [address] Assigned PCP 04/30/23 07/15/23 Radha Lomeli APRN WOODS RIDER 6405 [facility] [address] [place] [address] Assigned Heart and Vascular Provider 05/28/23 Jelena David OD [address] [facility] [place] [address] MD Ophthalmology 06/15/23 Pao Joseph, VJ Personal Advocate & Liaison (PAL) Nurse 08/01/23 11/07/23 Esha Grimm PA-C [address] [place] [phone] Assigned PCP 07/16/23 Valery Veronica PA-C [address] [place] [address] 432955 Physician Service Or Work Dispatcher Chief Dermatology 09/19/23 Rey Tay MD [address] [place] [address] 440075 Gastroenterology 09/20/23 Rocky Zepeda DO [address] [place] [address] 968305 Physician Gastroenterology 09/20/23 Philip Dumont MD [address] [place] [address] Physician Ophthalmology 09/22/23 Meredith Carrera PA-C [address] [place] [address] Assigned Gastroenterology Provider 11/01/23 Neil Kent MD [address] [address] Dermatology 11/02/23 [place] [address] [address] Neurological Surgery 12/26/23 Audrey Waite PA-C 500 [place] [address] Physician Service Or Work Dispatcher Chief Dermatology 02/28/24 Valery Veronica PA-C 505577 [address], [place] [address] Physician Service Or Work Dispatcher Chief Dermatology 04/10/24 Herminia Hatch MD [facility]5 [place], [place] [address]28[address] Assigned Rheumatology Provider 07/02/24 documented as of this encounter
--- OUTSIDE RECORDS SUMMARY | 2024-07-22 20:43 | XMS_ITS | Encounter Summary ---
Author Organization [place] Address [address] [place] [address] Care Team Providers Care Web Administrator Name Role Phone Lita Oseguera Unavailable Unavailable Marija Edgar APRN FINANCIAL PLANNING ANALYST Primary Care Provider + Marija Edgar APRN FINANCIAL PLANNING ANALYST Unavailable [phone] Keisha Dotson MD Unavailable [phone] Diana Dseir [facility] Unavailable Rain Galaviz PA-C Unavailable Tavia Wyatt MD Unavailable Erica Farrell APRN FINANCIAL PLANNING ANALYST Unavailable Rich Barrett MD Unavailable [phone] Neil Kent MD Unavailable Diana Desir [facility] Unavailable Livan Sharif MD Unavailable Catherine Cm MD Unavailable + Valery Veronica PA-C Unavailable [phone] Brea Quinn MAKEUP ARTISTRY INSTRUCTOR FINANCIAL PLANNING ANALYST Unavailable Brea Quinn MAKEUP ARTISTRY INSTRUCTOR FINANCIAL PLANNING ANALYST Unavailable Jose Francisco Johnson MD Unavailable Livan Sharif MD Unavailable Catherine Cm MD Unavailable + Sydnie Martinez RN Unavailable Unavailable Alfonso Renteria MD Unavailable [phone] Esha Grimm PA-C Primary Care Provider [phone] Cheng Todd PA-C Unavailable Radha Lomeli APRN FINANCIAL PLANNING ANALYST Unavailable Jelena David OD Unavailable Pao Joseph RN Unavailable Unavailable Esha Grimm PA-C Unavailable Valery Veronica PA-C Unavailable Rey Tay MD Unavailable Rocky Zepeda DO Unavailable Philip Dumont MD Unavailable Meredith Carrera PA-C Unavailable [phone] Neil Kent MD Unavailable Juan Pablo Emmanuel MD Unavailable [phone] Audrey Waite PA-C Unavailable JeremíasValery damon PA-C Unavailable Herminia Hatch MD Unavailable Encounter Details Date Type Department Care Team (Late st Contact Info) Description 11/10/[address] [facility] [address] [place] [address] Lauren Claudio PA-C [address] [place] [address] Social History Tobacco Use Types [...] How often do you attend latter-day or yazidi serv ices? Never 09/22/2021 Do [...] Answer Date Recorded PHQ-2 Score 1 10/11/2022 [facility] Questionnaire Answer Date [...] in a mcc (including now)? No 09/22/2021 [place] Depression Scale Answer Date Recorded [place] Depression Score 5 01/14/2021 Last EPDS Self Harm Result Not on file 01/14 Education Answer Date Recorded What is the highest level of school you have completed or the highest degree you have received? 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 NET WEB DEVELOPER Gender Identity Female 03/02/2021 5:45 PM [...] AM CDT Office Visit [facility] Neurology Clinics [facility] [address] [place] [address], [address] [place] [address] [place] [address] [facility] [place] [address] Johnny Penn MD 7646 [facility] [place] [address] 11/28/2024 7:45 AM CDT Virtual Visit [facility] G[facility]ology [facility] [address] [place] [address] Meredith Carrera PA-C [address] [place] [address] 057685 documented as of this encounter Visit Diagnoses [...] documented as of this encounter Care Teams Web Administrator Relationship Specialty Start Date End Date Marija Edgar APRN FINANCIAL PLANNING ANALYST PCP - General Nurse Practitioner 04/30/20 04/14/23 Esha Grimm PA-C [address] [place] [address] PCP - General Family Medicine 05/04/23 Lita Oseguera Personal Advocate & Liaison (PAL) 02/28/20 03/27/23 Marija Edgar APRN FINANCIAL PLANNING ANALYST Assigned PCP 06/08/20 04/29/23 Keisha Dotson MD 909 [place] [address] Assigned Neuroscience Provider 06/04/20 04/01/23 Diana Desir, [facility] 3033 [place] [address] Pharmacist Pharmacist 04/17/21 Rain Galaviz PA-C [address] [place] [address] [address] [facility] [place] [address] Physician Pile Driving Technician Dermatology 04/28/21 Tavia Wyatt MD [address] [place] [address] [address] [place] [address] Dermatology 07/14/21 Erica Farrell APRN FINANCIAL PLANNING ANALYST [address] [place], [place] [address] Nurse Practitioner Cardiovascular Disease 09/09/21 Rich Barrett MD 516 [facility] 9A [place], [place] [address] Physician Ophthalmology 01/21/22 Neil Kent MD 500 [place], [place] 710715 Dermatology 02/24/22 Diana Desir, [facility] 3033 [place], [place] 5[address] Assigned [facility] Pharmacist 04/07/22 Livan Sharif MD [address], [facility] [place] [address] Cardiovascular Disease 05/14/22 Catherine Cm MD 6405 [facility] S [address] 278875 Cardiovascular Disease 07/21/22 Valery Veronica, PA-C [address] [place] [address] 820585 Physician Pile Driving Technician Dermatology 07/21/22 Brea Quinn APRN FINANCIAL PLANNING ANALYST 500 [place], [place] 622375 Nurse Practitioner Dermatology 09/21/22 Brea Quinn APRN FINANCIAL PLANNING ANALYST 6401 [facility] [place] 658332 Assigned Surgical Provider 10/09/22 05/01/24 [place] [address] [address] [place] [address] Assigned Musculoskeletal Provider 10/09/22 05/01/24 Livan Sharif MD [address] [facility] [address] [place] [address] Assigned Heart and Vascular Provider 11/06/22 11/12/22 Catherine Cm MD [address] [place] [address] Assigned Heart and Vascular Provider 11/13/22 05/27/23 Sydnie Martinez RN Personal Advocate & Liaison (PAL) Family Medicine 03/28/23 07/31/23 Alfonso Renteria MD 5775 [facility] 200 [place] [address] Assigned Neuroscience Provider 04/02/23 Cheng Todd PA-C [address] [place] [address] [id number] Assigned PCP 04/30/23 07/15/23 Radha Lomeli APRN FINANCIAL PLANNING ANALYST [address] [place] [address] Assigned Heart and Vascular Provider 05/28/23 Jelena David OD [address] [facility] [place] [address] MD Ophthalmology 06/15/23 Pao Joseph, RN Personal Advocate & Liaison (PAL) Nurse 08/01/23 11/07/23 Esha Grimm PA-C [address] [place] [address] Assigned PCP 07/16/23 Valery Veronica PA-C [address] [place] [address] Physician Pile Driving Technician Dermatology 09/19/23 Rey Tay MD [address] [place] [address] 731025 MD Gastroenterology 09/20/23 Rocky Zepeda DO [address] [place] [address] 393745 Physician Gastroenterology 09/20/23 Philip Dumont MD [address] [place] [address] 510095 Physician Ophthalmology 09/22/23 Meredith Carrera PA-C [address] [place] [address] 942265 Assigned Gastroenterology Provider 11/01/23 Neil Knet MD [address] 998120 Dermatology 11/02/23 [place] [address] [place] [address] Neurological Surgery 12/26/23 Audrey Waite PA-C 500 [place] [address] Physician Pile Driving Technician Dermatology 02/28/24 Valery Veronica PA-C [address] [place] [address] Physician Pile Driving Technician Dermatology 04/10/24 Herminia Hatch MD [address] [place] [address] Assigned Rheumatology Provider 07/02/24 documented as of this encounter
--- OUTSIDE RECORDS SUMMARY | 2024-07-22 20:43 | XMS_ITS | Encounter Summary ---
Author Organization [place] Address [address] [place] [address] Care Team Providers Care Dope Maintenance Worker Name Role Phone Marija Edgar ARLENE PHARMACY COORDINATOR Unavailable [phone] Diana Desir [facility] Unavailable Rain Galaviz PA-C Unavailable Tavia Wyatt MD Unavailable Erica Farrell APRN PHARMACY COORDINATOR Unavailable Rich Barrett MD Unavailable [phone] Neil Kent MD Unavailable Diana Desir [facility] Unavailable [phone] Livan Sharif MD Unavailable Catherine Cm MD Unavailable + Valery Veronica PA-C Unavailable Brea Quinn APRN PHARMACY COORDINATOR Unavailable Brea Quinn APRN PHARMACY COORDINATOR Unavailable Jose Francisco Johnson MD Unavailable Catherine Cm MD Unavailable + Sydnie Martinez RN Unavailable Unavailable Alfonso Renteria MD Unavailable [phone] Esha Grimm PA-C Primary Care Provider [phone] Cheng Todd PA-C Unavailable Radha Lomeli APRN PHARMACY COORDINATOR Unavailable Jelena David OD Unavailable Pao Joseph RN Unavailable Unavailable Esha Grimm PA-C Unavailable [phone] Valery Veronica PA-C Unavailable [phone] Rey Tay MD Unavailable Rocky Zepeda DO Unavailable Philip Dumont MD Unavailable Meredith Carrera PA-C Unavailable [phone] Neil Kent MD Unavailable Juan Pablo Emmanuel MD Unavailable Audrey Waite PA-C Unavailable [phone] Valery Veronica-C Unavailable Herminia Hatch MD Unavailable Encounter Details Date Type Department Care Team (Late st Contact Info) Description 04/18/2023 MyC Medical Advice [facility] Gastroenterology Clinic [address] [address] Mary Calvo Social History Tobacco [...] do you attend up health system or mu-ism services? 1 to 4 times [...] Answer Date Recorded PHQ-2 Score 0 03/10/2023 [facility] ional [...] exercise at this level? 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 Gender Identity Female 03/02/2021 5:45 PM [...] 10/23/2024 9:30 AM CDT Office Visit [facility] Neurology [address], [address] [place] [phone] [place] [address] [place] [address] Johnny Penn MD 3554 [place] [address] 11/28/2024 7:45 AM CDT Virtual Visit [facility] Gastroenterology Clinic [address] 4th [place] [address] Meredith Carrera PA-C [address] [place] [address] 019535 documented as of this encounter Visit Diagnoses Not on filedocumented in this encounter Additional Health Concerns Infection Onset Date Last Indicated Resolved Time Rule Out COVID-19 12/26/2023 12/26/2023 12/26/2023 9:50 AM CDT Rule Out COVID-19 04/09/2024 04/09/2024 04/10/2024 6:48 PM CDT Assessment Noted Time PHQ-9 Depression Total Score: 5 03/10/20 6:49 AM CDT documented as of this encounter Care Teams Dope Maintenance Worker Relationship Specialty Start Date End Date Esha Grimm PA-C [address] [place] [address] PCP - General Family Medicine 05/04/23 Marija Edgar APRN PHARMACY COORDINATOR Assigned PCP 06/08/20 04/29/23 Diana Desir, [facility] [address] [place], [place] [address] Pharmacist Pharmacist 04/17/21 Rain Galaviz PA-C [address] [place] [address] [address] [place] [address] Physician Shoe Polisher Dermatology 04/28/21 Tavia Wyatt MD [address] [place] [address] [address] [place] [address] Dermatology 07/14/21 Erica Farrell APRN PHARMACY COORDINATOR [address] [place] 092345 Nurse Practitioner Cardiovascular Disease 09/09/21 Rich Barrett MD [address] [place] [address] [address] [place], [place] 6[address] Physician Ophthalmology 01/21/22 Neil Kent MD 500 [place], [place] 840855 Dermatology 02/24/22 Diana Desir, [facility] [address] [place] [address] Assigned MTM Pharmacist 04/07/22 Livan Sharif MD [address] [place] 885755 Cardiovascular Disease 05/14/22 Catherine Cm MD [address] [place] 546915 Cardiovascular Disease 07/21/22 Valery Veronica PA-C 909 [place] [address] Physician Shoe Polisher Dermatology 07/21/22 Brea Quinn APRN PHARMACY COORDINATOR 500 [place], [place] 838025 Nurse Practitioner Dermatology 09/21/22 Brea Quinn APRN PHARMACY COORDINATOR 6401 [place] [address] Assigned Surgical Provider 10/09/22 05/01/24 [place] [address] [facility] 300 [place], [place] 875817 Assigned Musculoskeletal Provider 10/09/22 05/01/24 Catherine Cm MD 6405 [facility] [address] [place], [place] 245675 Assigned Heart and Vascular Provider 11/13/22 05/27/23 Sydnie Martinez RN Personal Advocate & Liaison (PAL) Family Medicine 03/28/23 07/31/23 Alfonso Renteria MD 5775 [facility] 200 [place], [place] 9[address]506 Assigned Neuroscience Provider 04/02/23 Cheng Todd PA-C [address] [place] [address] Assigned PCP 04/30/23 07/15/23 Radha Lomeli APRN PHARMACY COORDINATOR [address] [place] [address] Assigned Heart and Vascular Provider 05/28/23 Jelena David OD [address] [place] [address] MD Ophthalmology 06/15/23 Pao Joseph, VJ Personal Advocate & Liaison (PAL) Nurse 08/01/23 11/07/23 Esha Grimm PA-C [address] [place] [address] Assigned PCP 07/16/23 Valery Veronica PA-C [address] [place] [address] 048395 Physician Shoe Polisher Dermatology 09/19/23 Rey Tay MD [address] [place] [address] 888325 Gastroenterology 09/20/23 Rocky Zepeda DO [address] [place] [address] 611465 Physician Gastroenterology 09/20/23 Philip Dumont MD [address] [place] [address] 646485 Physician Ophthalmology 09/22/23 Meredith Carrera PA-C [address] [place] [address] Assigned Gastroenterology Provider 11/01/23 Neil Kent MD [address] [address] Dermatology 11/02/23 [place] [address] [address] [facility] [place] [address] Neurological Surgery 12/26/23 Audrey Waite PA-C 500 [place] [address] Physician Shoe Polisher Dermatology 02/28/24 Valery Veronica PA-C 092368 99[place], [place] [address] Physician Shoe Polisher Dermatology 04/10/24 Herminia Hatch MD [facility]5 [place], [place] [address] Assigned Rheumatology Provider 07/02/24 documented as of this encounter
--- OUTSIDE RECORDS SUMMARY | 2024-07-22 20:43 | XMS_ITS | Encounter Summary ---
Author Organization [facility] Address [address] [place] [address] Care Team Providers Care Slide Fastener Chain Assembler Name Role Phone Lita Oseguera Unavailable Unavailable Marija Edgar APRN GAS PUMPING STATION HELPER Primary Care Provider + Marija Edgar APRN GAS PUMPING STATION HELPER Unavailable [phone] Keisha Dotson MD Unavailable [phone] Diana Desir [facility] Unavailable [phone] Rain Galaviz PA-C Unavailable [phone] Tavia Wyatt MD Unavailable Erica Farrell APRN GAS PUMPING STATION HELPER Unavailable Rich Barrett MD Unavailable [phone] Neil Kent MD Unavailable Diana Desir [facility] Unavailable Livan Sharif MD Unavailable Catherine Cm MD Unavailable + Valery Veronica PA-C Unavailable [phone] Brea uQinn DEPORTATION EXAMINER GAS PUMPING STATION HELPER Unavailable [phone] Brea Quinn DEPORTATION EXAMINER GAS PUMPING STATION HELPER Unavailable Jose Francisco Johnson MD Unavailable Catherine Cm MD Unavailable + Sydnie Martinez RN Unavailable Unavailable Alfonso Renteria MD Unavailable [phone] Esha Grimm PA-C Primary Care Provider Cheng Todd PA-C Unavailable ArmaniRadha APRN GAS PUMPING STATION HELPER Unavailable Jelena David OD Unavailable [phone] Pao Joseph RN Unavailable Unavailable Esha Grimm PA-C Unavailable [phone] Valery Veronica PA-C Unavailable Rey Tay MD Unavailable Rocky Zepeda DO Unavailable Philip Dumont MD Unavailable [phone] Meredith Carrera PA-C Unavailable Neil Kent MD Unavailable Juan Pablo Emmanuel MD Unavailable [phone] Audrey Waite PA-C Unavailable JeremíasValery damon PA-C Unavailable [phone] Herminia Hatch MD Unavailable Encounter Details Date Type Department Care Team (Late st Contact Info) Description 01/28/2023 MyC Medical Advice [facility] [address] [place] [address] Margaret Rendon, RN Social History Tobacco Use [...] How often do you attend mandaeism or muslim serv ices? Never 09/22/2021 Do [...] Answer Date Recorded PHQ-2 Score 1 10/11/2022 [facility] [...] a nursing home (including now)? 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 Gender Identity Female 03/02/2021 5:45 PM [...] Description 10/23/2024 9:30 AM CDT Office Visit [facility] Neurology [facility] [address] [place] [address], [address] [place] [address] [place] [address] [place] [address] Johnny Penn MD [address] [place] [id number] 11/28/2024 7:45 AM CDT Virtual Visit [facility] Gastroenterology Clinic [address] [place] [address] Meredith Carrera PA-C [address] [place] [address] documented as of this encounter Visit [...] as of this encounter Care Teams Slide Fastener Chain Assembler Relationship Specialty Start Date End Date Marija Edgar APRN GAS PUMPING STATION HELPER PCP - General Nurse Practitioner 04/30/20 04/14/23 Esha Grimm PA-C [address] [place] [address] PCP - General Family Medicine 05/04/23 Lita Oseguera Personal Advocate & Liaison (PAL) 02/28/20 03/27/23 Marija Edgar APRN GAS PUMPING STATION HELPER Assigned PCP 06/08/20 04/29/23 Keisha Dotson MD [address]09 [place], [place] 773675 Assigned Neuroscience Provider 06/04/20 04/01/23 [facility] 3033 [place], [place] 092666 Pharmacist Pharmacist 04/17/21 Rain Galaviz PA-C [address] [place] [address] [address] [place] [address] Physician Picture Painter Dermatology 04/28/21 Tavia Wyatt MD [address] [place] [address] [address] [place] [address] Dermatology 07/14/21 Erica Farrell APRN GAS PUMPING STATION HELPER [address] [place] [address] Nurse Practitioner Cardiovascular Disease 09/09/21 Rich Barrett MD [address] [address] Physician Ophthalmology 01/21/22 Neil Kent MD 500 [place], [place] 962035 Dermatology 02/24/22 Diana Desir, [facility] 3033 [place] [address] Assigned MTM Pharmacist 04/07/22 Livan Sharif MD [address] [facility] [place] 8[address] Cardiovascular Disease 05/14/22 Catherine Cm MD [address] [facility] [place] 8[address] Cardiovascular Disease 07/21/22 Valery Veronica, PA-C 9 [place], [place] 649435 Physician Picture Painter Dermatology 07/21/22 Brea Quinn APRN GAS PUMPING STATION HELPER 500 [place] [address] Nurse Practitioner Dermatology 09/21/22 Brea Quinn APRN GAS PUMPING STATION HELPER [address] [place], [place] [address] 94[address]82 Assigned Surgical Provider 10/09/22 05/01/24 [place] [address] [place] [address] 777277 Assigned Musculoskeletal Provider 10/09/22 05/01/24 Cahterine Cm MD [address] [place] [address] Assigned Heart and Vascular Provider 11/13/22 05/27/23 Sydnie Martinez RN Personal Advocate & Liaison (PAL) Family Medicine 03/28/23 07/31/23 Alfonso Renteria MD [facility] 200 [place], [place] 119256 Assigned Neuroscience Provider 04/02/23 Cheng Todd PA-C [address] [place] [address] [id number] Assigned PCP 04/30/23 07/15/23 Radha Lomeli APRN GAS PUMPING STATION HELPER [address] [place] [address] Assigned Heart and Vascular Provider 05/28/[address] J[address] David [address] [facility] [place] [address] Ophthalmology 06/15/23 Pao Joseph, VJ Personal Advocate & Liaison (PAL) Nurse 08/01/23 11/07/23 Esha Grimm PA-C [address] [place] [address] Assigned PCP 07/16/23 Valery Veronica PA-C 909 [place], [place] 597735 Physician Picture Painter Dermatology 09/19/23 Rey Tay MD [address] [place], [place] 084205 MD Gastroenterology 09/20/23 Rocky Zepeda DO 500 [place] [address] Physician Gastroenterology 09/20/23 Philip Dumont MD 516 [place], [place] 410765 Physician Ophthalmology 09/22/23 Meredith [place] PA-C 9 [place] [address] Assigned Gastroenterology Provider 11/01/23 Neil Kent MD [address] 226550 Dermatology 11/02/23 [place] [address] [facility] [place], [place] 875[address] Neurological Surgery 12/26/23 Audrey Waite PA-C 500 [place] [address] Physician Picture Painter Dermatology 02/28/24 Valery Veronica PA-C 791588 [address], [place] [address] Physician Picture Painter Dermatology 04/10/24 Herminia Hatch MD [address] [place] [address] Assigned Rheumatology Provider 07/02/24 documented as of this encounter
--- OUTSIDE RECORDS SUMMARY | 2024-07-22 20:43 | XMS_ITS | Encounter Summary ---
Author Organization [facility] Address [address] [place] [address] 26[address] Care Team Providers Care Button Puncher Name Role Phone Lita Oseguera Unavailable Unavailable Marija Edgar APRN INSTRUCTOR OF EDUCATION Primary Care Provider + Marija Edgar APRN INSTRUCTOR OF EDUCATION Unavailable [phone] Keisha Dotson MD Unavailable [phone] Diana Desir [facility] Unavailable Rain Galaviz PA-C Unavailable [phone] Tavia Wyatt MD Unavailable [phone] Erica Farrell APRN INSTRUCTOR OF EDUCATION Unavailable Rich Barrett MD Unavailable [phone] Neil Kent MD Unavailable Diana Desir [facility] Unavailable Livan Sharif MD Unavailable Catherine Cm MD Unavailable + Valery Veronica PA-C Unavailable [phone] Catherine Cm MD Unavailable + Brea Quinn AUTO BODY DETAILER INSTRUCTOR OF EDUCATION Unavailable Brea Quinn APRN INSTRUCTOR OF EDUCATION Unavailable Jose Francisco Johnson MD Unavailable Livan Sharif MD Unavailable Catherine Cm MD Unavailable + Sydnie Martinez RN Unavailable Unavailable Alfonso Renteria MD Unavailable [phone] Esha Grimm PA-C Primary Care Provider Cheng Todd PA-C Unavailable Radha Lomeli AUTO BODY DETAILER INSTRUCTOR OF EDUCATION Unavailable Jelena David Radha OD Unavailable Pao Joseph RN Unavailable Unavailable Esha Grimm PA-C Unavailable [phone] Valery Veronica PA-C Unavailable Rey Tay [...] Team (Late st Contact Info) Description 10/11/2022 [facility] [address] [facility] [address] [place] [address] [place] [address] [place] [address] Pt. Information/instructio n; Appointment Social History Tobacco [...] How often do you attend mandaen or jehovah's witness serv ices? Never 09/22/2021 [...] Answer Date Recorded PHQ-2 Score 1 10/11/2022 [facility] of Occupat [...] in a intermediate (including now)? No 09/22/2021 [place] Depression Scale Answer Date Recorded [place] Depression Score 5 01/14/2021 Last EPDS Self Harm Result Not on file 01/14 Education Answer Date Recorded What is the highest level of school you have completed or the highest degree you have received? 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 Please see new request below from [facility] and advise. Mandi Byrd RN * Telephone Encounter - Treasure Lee - 10/15/2022 2:14 PM CDT Health Call Center Phone Message May a detailed message be left on voicemail: yes Reason for Call: Other: [facility] wondering if she can also be conference in on patient's upcoming appointment (10/27). Action Taken: Other: [facility] Sports Medicine Travel Screening: Not Applicable * Telephone Encounter - Mary Easley - 10/12/2022 12:47 PM CDT Called Rosalva to discuss what they are needing from 's office. No answer. Left message to call back Kristina Easley ATC * Telephone Encounter - Treasure Lee - 10/11/2022 10:05 AM CDT [facility] Call Center Phone Message May a detailed message be left on voicemail: yes Reason for Call: Other: Please contact patient's gas appliance adjuster, Rosalva so she can authorize patient's MRI. Rosalva's contact info: phone# [phone] fax# [phone] Action Taken: Other: [facility] Sports Medicine Travel Screening: Not Applicable documented in this encounter Plan of Treatment Upcoming Encounters Date Type Department Care Team ([facility] Contact Info) Description 10/23/2024 9:30 AM CDT Office Visit [facility] Neurology [address], [address] [place] [phone] [place] [address] [address] 628207 Johnny Penn MD [address] [place], [place] [address] 11/28/2024 7:45 AM CDT Virtual Visit [facility] Gastroenterology Clinic [address]th [place] [phone] Meredith Carrera PA-C [address] [place] [address] 941345 documented as of this encounter Visit Diagnoses [...] as of this encounter Care Teams Button Puncher Relationship Specialty Start Date End Date Marija Edgar APRN INSTRUCTOR OF EDUCATION PCP - General Nurse Practitioner 04/30/20 04/14/23 Esha Grimm PA-C [address] [place] [phone] PCP - General Family Medicine 05/04/23 Lita Oseguera Personal Advocate & Liaison (PAL) 02/28/20 03/27/23 Marija Edgar APRN INSTRUCTOR OF EDUCATION Assigned PCP 06/08/20 04/29/23 Keisha Dotson MD 909 [place] [address] Assigned Neuroscience Provider 06/04/20 04/01/23 [facility] 3033 [place] [address] Pharmacist Pharmacist 04/17/21 Rain Galaviz PA-C [address] [place] [address] [address] [place] [address] Magistrate Dermatology 04/28/21 Tavia Wyatt MD [address] [place] [address] [address] [place] [address] Dermatology 07/14/21 Erica Farrell APRN [facility] [address] [place] [address] Nurse Practitioner Cardiovascular Disease 09/09/21 Rich Barrett MD [address] [place] [address] 143895 Physician Ophthalmology 01/21/22 Neil Kent MD [address] [place] [address] 613415 Dermatology 02/24/22 [facility] [address] [place] [address] Assigned MTM Pharmacist 04/07/22 Livan Sharif MD [address], [facility] [address] [place] [address] Cardiovascular Disease 05/14/22 Catherine Cm MD [address] [facility] [address] [place] [address] Cardiovascular Disease 07/21/22 Valery Veronica, PA-C 9 [place], [place] 725515 Physician [address] Magistrate Dermatology 07/21/22 Catherine Cm MD [address] [place], [place] 834705 Assigned Heart and Vascular Provider 07/24/22 11/05/22 Brea Quinn APRN INSTRUCTOR OF EDUCATION 500 [facility] [address] Nurse Practitioner Dermatology 09/21/22 Brea Quinn APRN INSTRUCTOR OF EDUCATION 6401 [place] [address] Assigned Surgical Provider 10/09/22 05/01/24 [place] [address] [address] [address] Assigned Musculoskeletal Provider 10/09/22 05/01/24 Livan Sharif MD [address], [facility] [address] [place] [address] Assigned Heart and Vascular Provider 11/06/22 11/12/22 Catherine Cm MD [address] [facility] [address] [place] [address] Assigned Heart and Vascular Provider 11/13/22 05/27/23 Sydnie Martinez RN Personal Advocate & Liaison (PAL) Family Medicine 03/28/23 07/31/23 Alfonso Renteria MD 5775 [facility] 200 [place], [place] 714076 Assigned Neuroscience Provider 04/02/23 Cheng Todd PA-C [address] [place] [address] [id number] Assigned PCP 04/30/23 07/15/23 Radha Lomeli APRN CNP 6405 [facility] [address] [place] [address] Assigned Heart and Vascular Provider 05/28/23 Jelena David OD [address] [place] [address] MD Ophthalmology 06/15/23 Pao Joseph, VJ Personal Advocate & Liaison (PAL) Nurse 08/01/23 11/07/23 Esha Grimm PA-C [address] [place] [phone] Assigned PCP 07/16/23 Valery Veronica PA-C [address] [place] [address] [address] Magistrate Dermatology 09/19/23 Rey Tay MD [address] [place] [address] 426945 MD Gastroenterology 09/20/23 Rocky Zepeda DO [address] [place] [address] 967355 Physician Gastroenterology 09/20/23 Philip Dumont MD [address] [place] [address] 828355 Physician Ophthalmology 09/22/23 Meredith Carrera PA-C [address] [place] [address] 700225 Assigned Gastroenterology Provider 11/01/23 Neil Kent MD [address] [address] Dermatology 11/02/23 [place] [address] [address] 554[address] Neurological Surgery 12/26/23 Audrey Waite PAUcheC 500 [place] [address] Magistrate Dermatology 02/28/24 Valery Veronica PABaldo 929988 [address] [address] Magistrate Dermatology 04/10/24 Herminia Hatch MD [facility] [place], [place] [address]85[address] Assigned Rheumatology Provider 07/02/24 documented as of this encounter
--- OUTSIDE RECORDS SUMMARY | 2024-07-22 20:43 | XMS_ITS | Encounter Summary ---
Author Organization [facility] Address [address] [place] [address] Care Team Providers Care Channeling Machine Runner Name Role Phone Lita Oseguera Unavailable Unavailable Marija Edgar APRN HOSE INSPECTOR AND PATCHER Primary Care Provider + Marija Edgar APRN HOSE INSPECTOR AND PATCHER Unavailable [phone] Keisha Dotson MD Unavailable [phone] Diana Desir [facility] Unavailable [phone] Rain Galaviz PA-C Unavailable Tavia Wyatt MD Unavailable Erica Farrell APRN HOSE INSPECTOR AND PATCHER Unavailable Rich Barrett MD Unavailable [phone] Neil Kent MD Unavailable Diana Desir [facility] Unavailable [phone] Livan Sharif MD Unavailable Catherine Cm MD Unavailable + Valery Veronica PA-C Unavailable [phone] Brea Quinn GRADUATING MACHINE OPERATOR HOSE INSPECTOR AND PATCHER Unavailable Brea Quinn GRADUATING MACHINE OPERATOR HOSE INSPECTOR AND PATCHER Unavailable [phone] Jose Francisco Johnson MD Unavailable Catherine Cm MD Unavailable + Sydnie Martinez RN Unavailable Unavailable Aflonso Renteria MD Unavailable [phone] Esha Grimm PA-C Primary Care Provider [phone] Cheng Todd PA-C Unavailable Radha Lomeli APRN HOSE INSPECTOR AND PATCHER Unavailable Jelena David OD Unavailable Pao Joseph RN Unavailable Unavailable Esha Grimm PA-C Unavailable [phone] Valery Veronica PA-C Unavailable [phone] Rey Tay MD Unavailable Rocky Zepeda DO Unavailable Philip Dumont MD Unavailable Meredith Carrera PA-C Unavailable Neil Kent MD Unavailable Juan Pablo Emmanuel MD Unavailable [phone] Audrey Waite PA-C Unavailable [phone] JeremíasValery damon PA-C Unavailable [phone] Herminia Hatch MD Unavailable Encounter Details Date Type Department Care Team (Late st Contact Info) Description 01/10/2023 [facility] [address] [place] [address] Lauren Claudio PA-C [address] [place] [address] Social History Tobacco Use Types [...] How often do you attend taoist or druze serv ices? Never 09/22/2021 Do [...] Answer Date Recorded PHQ-2 Score 1 10/11/2022 [facility] ional [facility] - Occupational Stress [...] in a fpc (including now)? No 09/22/2021 [place] Depression Scale Answer Date Recorded [place] Depression Score 5 01/14/2021 Last EPDS Self Harm Result Not on file 01/14 Education Answer Date Recorded What is the highest level of school you have completed or the highest degree you have received? 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 No / Unsure 01/12/2023 2:21 PM CDT documented as of this encounter Miscellaneous Notes * Telephone Encounter - Julsisa Benitez CMA - 02/03/2023 1:33 PM CDT Order faxed to number listed. Julissa Benitez CMA * Telephone Encounter - Lauren Claudio PA-C - 02/03/2023 11:59 AM CDT Please fax the order. * Telephone Encounter - Erica David MA - 02/03/2023 11:52 AM CDT Incoming call [facility] Hospitalist: Rosalva [place] [facility] referral following up on [facility] med information that is needed to be faxed at [phone] Erica David MA documented in this encounter Plan of Treatment Upcoming Encounters Date Type Department Care Team (Late st Contact Info) Description 10/23/2024 9:30 AM CDT Office Visit [facility] Neurology Clinics - [address], [address] [place] [address] [place] [address] [place] [address] Johnny Penn MD 8824 [facility] [address] [place] [id number] 11/28/2024 7:45 AM CDT Virtual Visit [facility] Gastroenterology Clinic [address] 4th [place] [phone] Meredith Carrera PA-C [address] [place] [address] documented as of this encounter Visit Diagnoses [...] documented as of this encounter Care Teams Channeling Machine Runner Relationship Specialty Start Date End Date Marija Edgar APRN HOSE INSPECTOR AND PATCHER PCP - General Nurse Practitioner 04/30/20 04/14/23 Esha Grimm PA-C [address] [place] [address] PCP - General Family Medicine 05/04/23 Lita Oseguera Personal Advocate & Liaison (PAL) 02/28/20 03/27/23 Marija Edgar APRN HOSE INSPECTOR AND PATCHER Assigned PCP 06/08/20 04/29/23 Keisha Dotson MD [address] [place] [address] Assigned Neuroscience Provider 06/04/20 04/01/23 Diana Desir, [facility] [address] [place] [address] Pharmacist Pharmacist 04/17/21 Rain Galaviz PA-C [address] [place] [address] [address] [place] [address] Physician Director [employer] Dermatology 04/28/21 Tavia Wyatt MD [address] [place] [address] [address] [place] [address] Dermatology 07/14/21 Erica Farrell APRN HOSE INSPECTOR AND PATCHER [address] [place] 221445 Nurse Practitioner Cardiovascular Disease 09/09/21 Rich Barrett MD [address] [facility] 9A [place], [place] 480[address] Physician Ophthalmology 01/21/22 Neil Kent MD 500 [place], [place] 279175 Dermatology 02/24/22 [facility] [address] [place] [address] Assigned MTM Pharmacist 04/07/22 Livan Sharif MD [address] [place] [address] Cardiovascular Disease 05/14/22 Catherine Cm MD 6405 [facility] [address] [place] [address] Cardiovascular Disease 07/21/22 Valery Veronica PA-C [address] [place] [address] Physician Director [employer] Dermatology 07/21/22 Brea Quinn APRN HOSE INSPECTOR AND PATCHER 500 [place] [address] Nurse Practitioner Dermatology 09/21/22 Brea Quinn APRN HOSE INSPECTOR AND PATCHER 6401 [place] [address] Assigned Surgical Provider 10/09/22 05/01/24 [place] [address] [facility] 300 [place], [place] 725487 Assigned Musculoskeletal Provider 10/09/22 05/01/24 Catherine Cm MD [address] [facility] [address] [place] [address] Assigned Heart and Vascular Provider 11/13/22 05/27/23 Sydnie Martinez RN Personal Advocate & Liaison (PAL) Family Medicine 03/28/23 07/31/23 Alfonso Renteria MD [address] [place] [facility] 200 [place], [place] 7[address] Assigned Neuroscience Provider 04/02/23 Cheng Todd PA-C [address] [place] [address] [id number] Assigned PCP 04/30/23 07/15/23 Radha Lomeli APRN CNP 6405 [facility] [address] [place] [address] Assigned Heart and Vascular Provider 05/28/23 Jelena David OD [address] [facility] [place] [address] MD Ophthalmology 06/15/23 Pao Joseph, VJ Personal Advocate & Liaison (PAL) Nurse 08/01/23 11/07/23 Esha Grimm PA-C [address] [place] [phone] Assigned PCP 07/16/23 Valery Veronica PA-C [address] [place] [address] 578005 Physician [employer] Dermatology 09/19/23 Rey Tay MD [address] [place] [address] 286855 Gastroenterology 09/20/23 Rocky Zepeda DO [address] [place] [address] 787855 Physician Gastroenterology 09/20/23 Philip Dumont MD [address] [place] [address] 429345 Physician Ophthalmology 09/22/23 Meredith Carrera PA-C [address] [place] [address] Assigned Gastroenterology Provider 11/01/23 Neil Kent MD [address] [address] Dermatology 11/02/23 [place] [address] [address] Neurological Surgery 12/26/23 Audrey Waite PA-C 500 [place] [address] Physician [employer] Dermatology 02/28/24 Valery Veronica PA-C 442028 [address] [address] Physician Director [employer] Dermatology 04/10/24 Herminia Hatch MD [facility] [place]5 [place], [place] 45[address] Assigned Rheumatology Provider 07/02/24 documented as of this encounter
--- OUTSIDE RECORDS SUMMARY | 2024-07-22 20:43 | XMS_ITS | Encounter Summary ---
Author Organization [facility] Address [address] [place] [address] Care Team Providers Care Boiler Control Technician Name Role Phone Marija Edgar APRN TECHNICAL INTERN Primary Care Provider + Marija Edgar APRN TECHNICAL INTERN Unavailable [phone] Keisha Dotson MD Unavailable Diana Desir [facility] Unavailable Rain Galaviz PA-C Unavailable [phone] Tavia Wyatt MD Unavailable [phone] Erica Farerll APRN TECHNICAL INTERN Unavailable Rich Barrett MD Unavailable Neil Kent MD Unavailable Diana Desir [facility] Unavailable Livan Sharif MD Unavailable Catherine Cm MD Unavailable + Valery Veronica PA-C Unavailable [phone] Brea Quinn APRN TECHNICAL INTERN Unavailable Brea Quinn APRN TECHNICAL INTERN Unavailable Jose Francisco Johnson MD Unavailable Catherine Cm MD Unavailable + Sydnie Martinez RN Unavailable Unavailable Alfonso Renteria MD Unavailable [phone] Esha Grimm PA-C Primary Care Provider Cheng Todd PA-C Unavailable Armani Radha Stovall APRN TECHNICAL INTERN Unavailable Frankie Jelena Garcia OD Unavailable Pao Joseph RN Unavailable Unavailable Esha Grimm PA-C Unavailable [phone] Valery Veronica PA-C Unavailable Rey Tay MD Unavailable Rocky Zepeda DO Unavailable Philip Dumont MD Unavailable Meredith Carrera PA-C Unavailable Neil Kent MD Unavailable Juan Pablo Emmanuel MD Unavailable [phone] Audrey Waite PA-C Unavailable [phone] JeremíasValery damon PA-C Unavailable [phone] Herminia Hatch MD Unavailable Encounter Details Date Type Department Care Team (Late st Contact Info) Description 03/29/2023 MyC Medical Advice [address] [address] iDana Desir, [facility] [address] [place], [place] [id number] Social History Tobacco Use Types Packs/Day Years [...] Answer Date Recorded PHQ-2 Score 0 03/10/2023 [facility] of Occupat ional [...] in a assisted (including now)? 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 Gender Identity Female 03/02/2021 5:45 PM CDT [...] Office Visit [facility] Neurology [facility] [address] [place] [address], [address] [place] [address] [place] [address] [facility] [place] [address] Johnny Penn MD [address] [place] [address] 11/28/2024 7:45 AM CDT Virtual Visit [facility] Gastroenterology Clinic [address] 4th [place] [address] Meredith Carrera PA-C [address] [place] [address] [phone] documented as of this encounter Visit Diagnoses Not on filedocumented in this encounter Additional Health Concerns Infection Onset Date Last Indicated Resolved Time Rule Out COVID-19 12/26/2023 12/26/2023 12/26/2023 9:50 AM CDT Rule Out COVID-19 04/09/2024 04/09/2024 04/10/2024 6:48 PM CDT Assessment Noted Time PHQ-9 Depression Total Score: 5 03/10/20 6:49 AM CDT documented as of this encounter Care Teams Boiler Control Technician Relationship Specialty Start Date End Date Marija Edgar APRN TECHNICAL INTERN PCP - General Nurse Practitioner 04/30/20 04/14/23 Esha Grimm PA-C [address] [place] [address] PCP - General Family Medicine 05/04/23 Marija Edgar APRN TECHNICAL INTERN Assigned PCP 06/08/20 04/29/23 Keisha Dotson MD [address] [place], [place] 190835 Assigned Neuroscience Provider 06/04/20 04/01/23 Diana Desir, [facility] [address] [place], [place] 220346 Pharmacist Pharmacist 04/17/21 Rain Galaviz PA-C [address] [place] [address] [address] [facility] [place] [address] Physician Legal Job Titles Dermatology 04/28/21 Tavia Wyatt MD [address] [place] [address] [address] [place] [id number] Dermatology 07/14/21 Erica Farrell APRN TECHNICAL INTERN [address] [facility] [address] [place], [place] [address] Nurse Practitioner Cardiovascular Disease 09/09/21 Rich Barrett MD [address] 617[address] Physician Ophthalmology 01/21/22 Neil Kent MD 500 [place] [address] Dermatology 02/24/22 Diana Desir, [facility] [address] [place] [address] Assigned [place] Pharmacist 04/07/22 Livan Sharif MD [address] [facility] [place] [address] Cardiovascular Disease 05/14/22 Catherine Cm MD [address] [place] [address] [place] [address]66[address] Cardiovascular Disease 07/21/22 Valery Veronica, PA-C 909 [place] [address] Physician Legal Job Titles Dermatology 07/21/22 Brea Quinn APRN TECHNICAL INTERN 500 [place] [address] Nurse Practitioner Dermatology 09/21/22 Brea Quinn APRN TECHNICAL INTERN [address] [place] [address] Assigned Surgical Provider 10/09/22 05/01/24 [place] [address] [place] [address] Assigned Musculoskeletal Provider 10/09/22 05/01/24 Catherine Cm MD [address] [place] [address] Assigned Heart and Vascular Provider 11/13/22 05/27/23 Sydnie Martinez RN Personal Advocate & Liaison (PAL) Family Medicine 03/28/23 07/31/23 Alfonso Renteria MD 57[address] [facility] [address] [place] [address] Assigned Neuroscience Provider 04/02/23 Cheng Todd PA-C [address] [place] [address] [phone] Assigned PCP 04/30/23 07/15/23 Radha Lomeli APRN TECHNICAL INTERN [address] [place] [address] Assigned Heart and Vascular Provider 05/28/23 Jelena David OD [address] [place] [address] Ophthalmology 06/15/23 Pao Joseph RN Personal Advocate & Liaison (PAL) Nurse 08/01/23 11/07/23 Esha Grimm PA-C [address] [place] [address] Assigned PCP 07/16/23 Valery Veronica PA-C [address] [place] [address] Physician Legal Job Titles Dermatology 09/19/23 Rey Tay MD 909 [place] [address] Gastroenterology 09/20/23 Rocky Zepeda DO 500 [place] [address] Physician Gastroenterology 09/20/23 Philip Dumont MD [address] [place] [address] Physician Ophthalmology 09/22/23 Meredith Carrera PA-C [address] [place] [address] Assigned Gastroenterology Provider 11/01/23 Neil Kent MD [address] [address] MD Dermatology 11/02/23 [place] [address] [address] Neurological Surgery 12/26/23 Audrey Waite PA-C 500 [place] [address] Physician Legal Job Titles Dermatology 02/28/24 Valery Veronica PA-C [address] [place] [address] Physician Legal Job Titles Dermatology 04/10/24 Herminia Hatch MD [facility]5 [place], [place] [id number] Assigned Rheumatology Provider 07/02/24 documented as of this encounter
--- OUTSIDE RECORDS SUMMARY | 2024-07-22 20:44 | XMS_ITS | Encounter Summary ---
Author Organization [facility] Address [address] [place] [address] Care Team Providers Care Stoner Out Name Role Phone Lita Oseguera Unavailable Unavailable Marija Edgar APRN TILE POWER SHEAR OPERATOR Primary Care Provider + Marija Edgar APRN TILE POWER SHEAR OPERATOR Unavailable [phone] Keisha Dotson MD Unavailable [phone] Diana Desir [facility] Unavailable Rain Galaviz PA-C Unavailable Tavia Wyatt MD Unavailable Erica Farrell APRN TILE POWER SHEAR OPERATOR Unavailable Rich Barrett MD Unavailable Neil Kent MD Unavailable Roney Story DPM Unavailable Diana Desir [facility] Unavailable [phone] Jelena David OD Unavailable Livan Sharif MD Unavailable Livan Sharif MD Unavailable Catherine Cm MD Unavailable + Valery Veronica PA-C Unavailable Catherine Cm MD Unavailable + Johnny Murillo MD Unavailable [phone] Brea Quinn DIRECTOR OF RESEARCH TILE POWER SHEAR OPERATOR Unavailable [phone] Brea Quinn DIRECTOR OF RESEARCH TILE POWER SHEAR OPERATOR Unavailable [phone] Jose Francisco Johnson MD Unavailable Livan Sharif MD Unavailable Catherine Cm MD Unavailable + Sydnie Martinez RN Unavailable Unavailable Alfonso Renteria MD Unavailable Esha Grimm PA-C Primary Care Provider Cheng Todd PA-C Unavailable [phone] Radha Lomeli DIRECTOR OF RESEARCH TILE POWER SHEAR OPERATOR Unavailable Jelena David OD Unavailable Pao Joseph RN Unavailable Unavailable Esha Grimm PA-C Unavailable [phone] Valery Veronica PA-C Unavailable [phone] Rey Tay MD Unavailable Rocky Zepeda DO Unavailable Philip Dumont MD Unavailable [phone] Meredith Carrera PA-C Unavailable Neil Kent MD Unavailable Juan Pablo Emmanuel MD Unavailable [phone] Audrey Waite PA-C Unavailable [phone] Valery Veronica PA-C Unavailable [phone] Herminia Hatch MD Unavailable Encounter Details Date Type Department Care Team (Late st Contact Info) Description 07/02/2022 MyC Medical Advice [address] [address] Diana Desir, [facility] [address] [place] [address] Social History Tobacco Use Types Packs/Day Years [...] How often do you attend rastafarian or spiritism serv ices? Never 09/22/2021 Do you belong [...] points; Administer PHQ-9 if positive 1 05/13/2022 [facility] of Occupat ional Health - Occupational Stress [...] in a detention (including now)? No 09/22/2021 [place] Depression Scale Answer Date Recorded [place] Depression Score 5 01/14/2021 Last EPDS Self Harm Result Not on file 01/14 Education Answer Date Recorded What is the highest level of school you have completed or the highest degree you have received? 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 No / Unsure 06/25/2022 8:44 AM SOCKET WELDER HELPER documented as of this encounter Plan of Treatment Upcoming Encounters Date Type Department Care Team (Late st Contact Info) Description 10/23/2024 9:30 AM CDT Office Visit [facility] [address], [address] [place] [address] [place] [address] [place] [address] Johnny Penn MD [address] [place], [place] [id number] 11/28/2024 7:45 AM CDT Virtual Visit [facility] [address] 4th [place] [address] Meredith Carrera PA-C [address] [place] [address] 363575 documented as of this encounter Visit Diagnoses [...] documented as of this encounter Care Teams Stoner Out Relationship Specialty Start Date End Date Marija Edgar APRN TILE POWER SHEAR OPERATOR PCP - General Nurse Practitioner 04/30/20 04/14/23 Esha Grimm PA-C [address] [place] [address] PCP - General Family Medicine 05/04/23 Lita Oseguera Personal Advocate & Liaison (PAL) 02/28/20 03/27/23 Marija Edgar APRN TILE POWER SHEAR OPERATOR Assigned PCP 06/08/20 04/29/23 Keisha Dotson MD 9[address] [place], [place] 24[address]85 Assigned Neuroscience Provider 06/04/20 04/01/23 Diana Desir [facility] [address] [facility] [place] [place] [id number] Pharmacist Pharmacist 04/17/21 Rain Galaviz PA-C [address] [place] [address] [place] [address] Physician Receiving Checker Dermatology 04/28/21 Tavia [place] MD [address] [place] [address] [address] [place] [address] Dermatology 07/14/21 Erica Farrell APRN TILE POWER SHEAR OPERATOR [address] [place] [address] Nurse Practitioner Cardiovascular Disease 09/09/21 Rich Barrett MD [address] [place] [address] 383695 Physician Ophthalmology 01/21/22 Neil Kent MD 500 [place] [address] Dermatology 02/24/22 Roney Story DPM [address] [facility] 300 [place] [address] Assigned Musculoskeletal Provider 03/20/22 08/13/22 Diana Desir, [facility] [address] [place] [address] Assigned MTM Pharmacist 04/07/22 Jelena David OD [address] [facility] [place] [address] Assigned Surgical Provider 05/08/22 10/08/22 Livan Sharif MD [address] [place] [address] Cardiovascular Disease 05/14/22 Livan Sharif MD [address] [facility] [address] [place] [address] Assigned Heart and Vascular Provider 06/12/22 07/23/22 Catherine Cm MD [address] [facility]00 [place] [address] Cardiovascular Disease 07/21/22 Valery Veronica, PA-C [address] [place] [address] 819035 Physician Receiving Checker Dermatology 07/21/22 Catherine Cm MD [address] [place] [id number] [place] [address] Assigned Heart and Vascular Provider 07/24/22 11/05/22 Johnny Murillo MD [address] [place] [address] 428404 Assigned Musculoskeletal Provider 08/14/22 10/08/22 Brea Quinn APRN TILE POWER SHEAR OPERATOR [address] [place] [address] Nurse Practitioner Dermatology 09/21/22 Brea Quinn APRN TILE POWER SHEAR OPERATOR [address] [place] [address] [facility] [place] [address] Assigned Surgical Provider 10/09/22 05/01/24 [place] [address] [place] [address] Assigned Musculoskeletal Provider 10/09/22 05/01/24 Livan Sharif MD [address], [facility] [address] [place] [address] Assigned Heart and Vascular Provider 11/06/22 11/12/22 Catherine Cm MD [address] [facility] [address] [place] 220215 Assigned Heart and Vascular Provider 11/13/22 05/27/23 Sydnie Martinez RN Personal Advocate & Liaison (PAL) Family Medicine 03/28/23 07/31/23 Alfonso Renteria MD 5775 [facility] 200 [place] [address] Assigned Neuroscience Provider 04/02/23 Cheng Todd PA-C [address] [place] [address] Assigned PCP 04/30/23 07/15/23 Radha Lomeli, DIRECTOR OF RESEARCH TILE POWER SHEAR OPERATOR [address] [place] [address] Assigned Heart and Vascular Provider 05/28/23 Jelena David OD [facility] [facility] [place] [address] Ophthalmology 06/15/23 Pao Joseph, VJ Personal Advocate & Liaison (PAL) Nurse 08/01/23 11/07/23 Esha Grimm PAUcheC [address] [facility] [place] [place] [address] Assigned PCP 07/16/23 Valery Veronica PA-C [address] [place] [address] Physician Receiving Checker Dermatology 09/19/23 Rey Tay MD [address] [place] [address] MD Gastroenterology 09/20/23 Rocky Zepeda DO [address] [place] [address] 287505 Physician Gastroenterology 09/20/23 Philip Duomnt MD [address] [place] [address] Physician Ophthalmology 09/22/23 Meredith Carrera PA-C [address] [place] [address] Assigned Gastroenterology Provider 11/01/23 Neil Kent MD [address] [address] Dermatology 11/02/23 [place] [address] [place], [place] [address] Neurological Surgery 12/26/23 Audrey Waite PA-C [address] [place] [address] [phone] Physician Receiving Checker Dermatology 02/28/24 Valery Veronica PA-C [address] [place] [address] Physician Receiving Checker Dermatology 04/10/24 Herminia Hatch MD [address] [place] [address] [id number] Assigned Rheumatology Provider 07/02/24 documented as of this encounter
--- OUTSIDE RECORDS SUMMARY | 2024-07-22 20:44 | XMS_ITS | Encounter Summary ---
Author Organization [place] Address [address] [place] [address] Care Team Providers Care Director Name Role Phone Lita Oseguera Unavailable Unavailable Marija Edgar APRN GAS LEAK INSPECTOR Primary Care Provider + Marija Edgar APRN GAS LEAK INSPECTOR Unavailable [phone] Keisha Dotson MD Unavailable Diana Desir [facility] Unavailable Rain Galaviz PA-C Unavailable Tavia Wyatt MD Unavailable [phone] Erica Farrell APRN GAS LEAK INSPECTOR Unavailable Tavia Wyatt MD Unavailable [phone] Rich Barrett MD Unavailable [phone] Neil Kent MD Unavailable Roney Story DPM Unavailable Diana Desir [facility] Unavailable [phone] Jelena David OD Unavailable Galo Burrell MD Unavailable Unavailable Livan Sharif MD Unavailable Livan Sharif MD Unavailable Catherine Cm MD Unavailable + Valery Veronica PA-C Unavailable Catherine Cm MD Unavailable + Johnny Murillo MD Unavailable [phone] Brea Quinn CONSTRUCTION EQUIPMENT TECHNICIAN GAS LEAK INSPECTOR Unavailable [phone] Brea Quinn CONSTRUCTION EQUIPMENT TECHNICIAN GAS LEAK INSPECTOR Unavailable [phone] Jose Francisco Johnson MD Unavailable Livan Sharif MD Unavailable Catherine Cm MD Unavailable + Sydnie Martinez RN Unavailable Unavailable Alfonso Renteria MD Unavailable [phone] Esha Grimm PA-C Primary Care Provider Cheng Todd PA-C Unavailable Radha Lomeli CONSTRUCTION EQUIPMENT TECHNICIAN GAS LEAK INSPECTOR Unavailable Jelena David OD Unavailable Pao Joseph RN Unavailable Unavailable Esha Grimm PA-C Unavailable [phone] Valery Veronica PA-C Unavailable [phone] Rey Tay MD Unavailable Rocky Zepeda DO Unavailable Philip Dumont MD Unavailable Meredith Carrera PA-C Unavailable [phone] Neil Kent MD Unavailable Juan Pablo Emmanuel MD Unavailable Audrey Waite PA-C Unavailable Valery Veronica PA-C Unavailable Herminia Hatch MD [facility] Encounter Details Date Type Department Care Team (Late st Contact Info) Description 04/20/2022 MyC Medical Advice [facility] Heart [address] [place] [phone] Margaret Rendon, RN Social History Tobacco Use [...] Answer Date Recorded PHQ-2 Score 2 12/18/2021 [facility] of Occupat ional [...] in a custodial (including now)? No 09/22/2021 [place] Depression Scale Answer Date Recorded [place] Depression Score 5 01/14/2021 Last EPDS Self Harm Result Not on file 01/14 Education Answer Date Recorded What is the highest level of school you have completed or the highest degree you have received? 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 PRESCHOOL ASSISTANT Gender Identity Female 03/02/2021 5:45 PM [...] Description 10/23/2024 9:30 AM CDT Office Visit [facility] Neurology [address], [address] [place] [address] [place] [address] [place] [address] Johnny Penn MD [address] [facility] [place] [id number] 11/28/2024 7:45 AM CDT Virtual Visit [facility] Gastroenterology Clinic [address] 4th [place] [address] Meredith Carrera PA-C [address] [place] [address] 423605 documented as of this encounter Visit Diagnoses Not on filedocumented in this encounter Additional Health Concerns Infection Onset Date Last Indicated Resolved Time Rule Out COVID-19 04/26/2022 04/26/2022 04/26/2022 6:47 AM CDT Rule Out COVID-19 05/17/2022 05/17/2022 05/17/2022 10:20 PM PRESCHOOL ASSISTANT Rule Out COVID-19 06/09/2022 06/09/2022 06/09/2022 9:35 AM PRESCHOOL ASSISTANT COVID-19 06/09/2022 06/09/2022 06/30/2022 11:4 1 PM PRESCHOOL ASSISTANT Rule Out COVID-19 11/10/2022 11/10/2022 11/11/2022 12:17 PM CDT Rule Out COVID-19 03/07/2023 03/07/2023 03/07/2023 1:20 PM CDT Rule Out COVID-19 12/26/2023 12/26/2023 12/26/2023 9:50 AM CDT Rule Out COVID-19 04/09/2024 04/09/2024 04/10/2024 6:48 PM CDT Assessment Noted Time PHQ-9 Depression Total Score: 2 12/19/19 2:50 PM CDT documented as of this encounter Care Teams Director Relationship Specialty Start Date End Date Marija Edgar APRN GAS LEAK INSPECTOR PCP - General Nurse Practitioner 04/30/20 04/14/23 Esha Grimm PA-C [address] [place] [address] PCP - General Family Medicine 05/04/23 Lita Oseguera Personal Advocate & Liaison (PAL) 02/28/20 03/27/23 Marija Edgar APRN GAS LEAK INSPECTOR Assigned PCP 06/08/20 04/29/23 Keisha Dotson MD [address] [place] [address] Assigned Neuroscience Provider 06/04/20 04/01/23 Diana Desir, [facility] [address] [place] [address] Pharmacist Pharmacist 04/17/21 Rain Galaviz PA-C [address] [place] [address] [address] [place] [address] Physician Continuous Process Coffee Roaster Dermatology 04/28/21 Tavia Waytt MD [address] [place] [address] [address] [place] [address] Dermatology 07/14/21 Erica Farrell APRN GAS LEAK INSPECTOR [address] [facility] [address] [place], [place] [address] Nurse Practitioner Cardiovascular Disease 09/09/21 Tavia Wyatt MD [address] [place], [place] [id number] Assigned Surgical Provider 11/29/21 05/07/22 Rich Barrett MD [address] 224315 Physician Ophthalmology 01/21/22 Neil Kent MD [address] [place], [place] [phone] Dermatology 02/24/22 Roney Story DPM [address] [facility] [address] [place] [address] Assigned Musculoskeletal Provider 03/20/22 08/13/22 Diana Desir, [facility] [address] [place], [place] [phone] Assigned MTM Pharmacist 04/07/22 Jelena David OD [address] [facility] [place] [address] Assigned Surgical Provider 05/08/22 10/08/22 Galo Burrell MD Assigned Heart and Vascular Provider 04/17/22 06/11/22 Livan Sharif MD [address] [place] [address] Cardiovascular Disease 05/14/22 Livan Sharif MD [address] [place] [address] Assigned Heart and Vascular Provider 06/12/22 07/23/22 Catherine Cm MD [address] [facility] [address] [place] 2[address] Cardiovascular Disease 07/21/22 Valery Veronica PA-C [address] [place], [place] 297315 Physician Continuous Process Coffee Roaster Dermatology 07/21/22 Catherine Cm MD [address] [place] [address] Assigned Heart and Vascular Provider 07/24/22 11/05/22 Johnny Murillo [address] [facility] [address] [place] [address] Assigned Musculoskeletal Provider 08/14/22 10/08/22 Brea Quinn APRN GAS LEAK INSPECTOR [address] [place] [address] Nurse Practitioner Dermatology 09/21/22 Brea Quinn APRN GAS LEAK INSPECTOR [address] [facility] [place] [address] Assigned Surgical Provider 10/09/22 05/01/24 [place] [address] [address] [facility] [address] [place] [address] Assigned Musculoskeletal Provider 10/09/22 05/01/24 Livan Sharif MD [address], [facility] [address] [place] [address] Assigned Heart and Vascular Provider 11/06/22 11/12/22 Catherine Cm MD [address] [facility] [address] [place], [place] 8[address] Assigned Heart and Vascular Provider 11/13/22 05/27/23 Sydnie Martinez RN Personal Advocate & Liaison (PAL) Family Medicine 03/28/23 07/31/23 Alfonso Renteria MD [address] [facility] 200 [place] [address] Assigned Neuroscience Provider 04/02/23 Cheng Todd PA-C [address] [place] [address] [id number] Assigned PCP 04/30/23 07/15/23 Radha Lomeli APRN CNP [address] [facility] [address] [place] [address] Assigned Heart and Vascular Provider 05/28/23 Jelena David OD [address] [facility] [address] MD Ophthalmology 06/15/23 Pao Joseph, VJ Personal Advocate & Liaison (PAL) Nurse 08/01/23 11/07/23 Esha Grimm PA-C [address] [place] [phone] Assigned PCP 07/16/23 Valery Veronica PA-C [address] [place] [address] 421455 Physician Continuous Process Coffee Roaster Dermatology 09/19/23 Rey Tay MD [address] [place] [address] 409745 Gastroenterology 09/20/23 Rocky Zepeda DO [address] [place] [address] 930345 Physician Gastroenterology 09/20/23 Philip Dumont MD [address] [place] [address] 078075 Physician Ophthalmology 09/22/23 Meredith Carrera PA-C [address] [place] [address] Assigned Gastroenterology Provider 11/01/23 Neil Kent MD [address] [address] Dermatology 11/02/23 [place] [address] [address] Neurological Surgery 12/26/23 Audrey Waite PA-C 500 [place] [address] Physician Continuous Process Coffee Roaster Dermatology 02/28/24 Valery Veronica PA-C 187851 [address] [place] [address] Physician Continuous Process Coffee Roaster Dermatology 04/10/24 Herminia Hatch MD [facility]5 [place], [place] [address] Assigned Rheumatology Provider 07/02/24 documented as of this encounter
--- OUTSIDE RECORDS SUMMARY | 2024-07-22 20:44 | XMS_ITS | Encounter Summary ---
Author Organization [place] Address [address] [place] [address] Care Team Providers Care Food Assembler Name Role Phone Lita Oseguera Unavailable Unavailable Marija Edgar APRN BUSSER Primary Care Provider + Marija Edgar APRN BUSSER Unavailable [phone] Keisha Dotson MD Unavailable Diana Desir [facility] Unavailable Rain Galaviz PA-C Unavailable Tavia Wyatt MD Unavailable Erica Farrell APRN BUSSER Unavailable Rich Barrett MD Unavailable Neil Kent MD Unavailable Roney Story DPM Unavailable Diana Desir [facility] Unavailable Jelena David OD Unavailable Livan Sharif MD Unavailable Livan Sharif MD Unavailable Catherine Cm MD Unavailable + Valery Veronica PA-C Unavailable Catherine Cm MD Unavailable + Johnny Murillo MD Unavailable [phone] Brea Quinn VOLUNTEER RECRUITER BUSSER Unavailable [phone] Brea Quinn VOLUNTEER RECRUITER BUSSER Unavailable [phone] Jose Francisco Johnson MD Unavailable Livan Sharif MD Unavailable Catherine Cm MD Unavailable + Sydnie Martinez RN Unavailable Unavailable Alfonso Renteria MD Unavailable Esha Grimm PA-C Primary Care Provider Cheng Todd PA-C Unavailable [phone] Radha Lomeli VOLUNTEER RECRUITER BUSSER Unavailable Jelena David OD Unavailable [phone] Pao Joseph RN Unavailable Unavailable Esha Grimm PA-C Unavailable [phone] Valery Veronica PA-C Unavailable [phone] Rey Tay MD Unavailable Rocky Zepeda DO Unavailable Philip Dumont MD Unavailable [phone] Meredith Carrera PA-C Unavailable Neil Kent MD Unavailable Juan Pablo Emmanuel MD Unavailable Audrey Waite PA-C Unavailable [phone] Valery Veronica PA-C Unavailable [phone] Herminia Hatch MD Unavailable Encounter Details Date Type Department Care Team (Late st Contact Info) Description 07/20/2022 MyC Medical Advice [facility] [address] [facility] [address] [place] [address] Livan Sharif MD [address] [place] [address] Social History Tobacco Use Types Packs/Day Years [...] often do you attend sikh or baptist serv ices? Never 09/22/2021 Do [...] points; Administer PHQ-9 if positive 1 05/13/2022 [facility] [place] of Occupat ional Health - Occupational Stress [...] a care home (including now)? No 09/22/2021 [place] Depression Scale Answer Date Recorded [place] Depression Score 5 01/14/2021 Last EPDS Self Harm Result Not on file 01/14 Education Answer Date Recorded What is the highest level of school you have completed or the highest degree you have received? 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 DIRECTOR CALL CENTER SALES Gender Identity Female 03/02/2021 5:45 PM CDT Sexual Orientation Straight 02/28/2020 12 :51 AM CDT COVID-19 Exposure Response Date Recorded In the last 10 days, have yo u been in contact with someone who was confirmed or suspected to have Coronavirus/COVID-19? No / Unsure 07/23/2022 6:45 AM DIRECTOR CALL CENTER SALES documented as of this encounter Plan of Treatment Upcoming Encounters Date Type Department Care Team (Late st Contact Info) Description 10/23/2024 9:30 AM CDT Office Visit [facility] Neurology Clinics [address], [address] [place] [address] [place] [address] [place] [address] Johnny Pnen MD [address] [facility] [place] [address] 11/28/2024 7:45 AM CDT Virtual Visit [facility] Gastroenterology Clinic [address] 4th [place] [address] Meredith Carrera PA-C [address] [place] [address] 319685 documented as of this encounter Visit Diagnoses Not on filedocumented in this encounter Additional Health Concerns Infection Onset Date Last Indicated Resolved Time Rule Out COVID-19 11/10/2022 11/10/202211/1111/11/2022 12:17 PM CDT Rule Out COVID-19 03/07/2023 03/07/2023 03/07/2023 1:20 PM CDT Rule Out COVID-19 12/26/2023 12/26/2023 12/26/2023 9:50 AM CDT Rule Out COVID-19 04/09/2024 04/09/2024 04/10/2024 6:48 PM CDT Assessment Noted Time PHQ-9 Depression Total Score: 3 05/13/20 8:49 PM CDT documented as of this encounter Care Teams Food Assembler Relationship Specialty Start Date End Date Marija Edgar APRN BUSSER PCP - General Nurse Practitioner 04/30/20 04/14/23 Esha Grimm PA-C [address] [place] [phone] PCP - General Family Medicine 05/04/23 Lita Oseguera Personal Advocate & Liaison (PAL) 02/28/20 03/27/23 Marija Edgar APRN BUSSER Assigned PCP 06/08/20 04/29/23 Keisha Dotson MD 9[address] [place], [place] 367145 Assigned Neuroscience Provider 06/04/20 04/01/23 Diana Desir [facility] 3033 [place], [place] 329406 Pharmacist Pharmacist 04/17/21 Rain Gaalviz PA-C [address] [place] [address] [place] [address] Physician Visual C Developer Dermatology 04/28/21 Tavia Wyatt MD [address] [place] [address] [address] [place] [address] Dermatology 07/14/21 Erica Farrell APRN BUSSER [address] [place] [address] Nurse Practitioner Cardiovascular Disease 09/09/21 Rich Barrett MD [address] [place] [address] 348615 Physician Ophthalmology 01/21/22 Neil Kent MD 500 [place] [address] Dermatology 02/24/22 Roney Story DPM [address] [facility] 300 [place] [address] Assigned Musculoskeletal Provider 03/20/22 08/13/22 Diana Desir, [facility] 3033 [place] [address] Assigned MTM Pharmacist 04/07/22 [place] David OD [address] [facility] [place] [address] Assigned Surgical Provider 05/08/22 10/08/22 Livan Sharif MD [address] [place] [address] Cardiovascular Disease 05/14/22 Livan Sharif MD [address], [facility] [address] [place] 202525 Assigned Heart and Vascular Provider 06/12/22 07/23/22 Catherine Cm MD [address] [facility] [place] [address] Cardiovascular Disease 07/21/22 Valery Veronica, PA-C [address] [place] [address] 115885 Physician Visual C Developer Dermatology 07/21/22 Catherine Cm MD [address] [place] [id number] [place] [address] Assigned Heart and Vascular Provider 07/24/22 11/05/22 Johnny Murillo MD [address] [place] [address] 979524 Assigned Musculoskeletal Provider 08/14/22 10/08/22 Brea Quinn APRN BUSSER [address] [place] [address] Nurse Practitioner Dermatology 09/21/22 Brea Quinn APRN BUSSER [address] [place] [address] [place] [address] Assigned Surgical Provider 10/09/22 05/01/24 [place] [address] [place] [address] Assigned Musculoskeletal Provider 10/09/22 05/01/24 Livan Sharif MD [address], [facility] [address] [place] [address] Assigned Heart and Vascular Provider 11/06/22 11/12/22 Catherine Cm MD [address] [facility] [address] [place] [address] Assigned Heart and Vascular Provider 11/13/22 05/27/23 Sydnie Martinez RN Personal Advocate & Liaison (PAL) Family Medicine 03/28/23 07/31/23 Alfonso Renteria MD 5775 [facility] 200 [place] [address] Assigned Neuroscience Provider 04/02/23 Cheng Todd PA-C [address] [place] [address] Assigned PCP 04/30/23 07/15/23 Radha Lomeli, ARLENE BUSSER [address] [place] [address] Assigned Heart and Vascular Provider 05/28/23 Jelena David OD [facility] [facility] [place] [address] Ophthalmology 06/15/23 Pao Joseph, VJ Personal Advocate & Liaison (PAL) Nurse 08/01/23 11/07/23 Esha Grimm PA-C [address] [place] [address] Assigned PCP 07/16/23 Valery Veronica PA-C [address] [place] [address] Physician Visual C Developer Dermatology 09/19/23 Rey Tay MD [address] [place] [address] MD Gastroenterology 09/20/23 Rocky Zepeda DO [address] [place] [address] 037975 Physician Gastroenterology 09/20/23 Philip Dumont MD [address] [place] [address] Physician Ophthalmology 09/22/23 Meredith Carrera PA-C [address] [place] [address] Assigned Gastroenterology Provider 11/01/23 Neil Kent MD [address] [address] Dermatology 11/02/23 [place] [address] [place] [address] Neurological Surgery 12/26/23 Audrey Waite PA-C [address] [place] [address] 308285 Physician Visual C Developer Dermatology 02/28/24 Valery Veronica PA-C [address] [place] [address] Physician Visual C Developer Dermatology 04/10/24 Herminia Hatch MD [address] [place] [address] [id number] Assigned Rheumatology Provider 07/02/24 documented as of this encounter
--- OUTSIDE RECORDS SUMMARY | 2024-07-22 20:44 | XMS_ITS | Encounter Summary ---
Author Organization [employer] Address [address] [place] [address] Care Team Providers Care Repairer Handtools Name Role Phone Lita Oseguera Unavailable Unavailable Marija Edgar APRN DENTAL TECHNOLOGY ADVISOR Primary Care Provider + Marija Edgar APRN DENTAL TECHNOLOGY ADVISOR Unavailable [phone] Keisha Dotson MD Unavailable Diana Desir [facility] Unavailable Rain Galaviz PA-C Unavailable Tavia Wyatt MD Unavailable [phone] Erica Farrell APRN DENTAL TECHNOLOGY ADVISOR Unavailable Tavia Wyatt MD Unavailable [phone] Rich Barrett MD Unavailable [phone] Neil Kent MD Unavailable Roney Story DPM Unavailable Diana Desir [facility] Unavailable Jelena David OD Unavailable Galo Burrell MD Unavailable Unavailable Livan Sharif MD Unavailable Livan Sharif MD Unavailable Catherine Cm MD Unavailable + Valery Veronica PA-C Unavailable Catherine Cm MD Unavailable + Johnny Murillo MD Unavailable [phone] Brea Quinn SOAKERS SUPERVISOR DENTAL TECHNOLOGY ADVISOR Unavailable [phone] Brea Quinn SOAKERS SUPERVISOR DENTAL TECHNOLOGY ADVISOR Unavailable [phone] Jose Francisco Johnson MD Unavailable Livan Sharif MD Unavailable Catherine Cm MD Unavailable + Sydnie Martinez RN Unavailable Unavailable Alfonso Renteria MD Unavailable [phone] Esha Grimm PA-C Primary Care Provider Cheng Todd PA-C Unavailable Radha Lomeli SOAKERS SUPERVISOR DENTAL TECHNOLOGY ADVISOR Unavailable Jelena David OD Unavailable Pao Joseph RN Unavailable Unavailable Esha Grimm PA-C Unavailable [phone] Valery Veronica PA-C Unavailable [phone] Rey Tay MD Unavailable Rocky Zepeda DO Unavailable Philip Dumont MD Unavailable Meredith Carrera PA-C Unavailable Neil Kent MD Unavailable Juan Pablo Emmanuel MD Unavailable Audrey Waite PA-C Unavailable Valery Veronica PA-C Unavailable Herminia Hatch MD [facility] Encounter Details Date Type Department Care Team (Late st Contact Info) Description 05/01/2022 MyC Medical Advice [address] [address] Thang Diana Stanislav, [facility] [address] [place] [address] Social History Tobacco Use Types Packs/Day Years [...] How often do you attend adventism or scientologist serv ices? Never 09/22/2021 Do [...] Answer Date Recorded PHQ-2 Score 2 12/18/2021 [facility] - Occupational [...] in a usp (including now)? No 09/22/2021 [place] Depression Scale Answer Date Recorded [place] Depression Score 5 01/14/2021 Last EPDS Self Harm Result Not on file 01/14 Education Answer Date Recorded What is the highest level of school you have completed or the highest degree you have received? 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 PHARMACEUTICAL DETAILER Gender Identity Female 03/02/2021 5:45 PM CDT [...] CDT Office Visit [facility] [address], [address] [place] [address] [place] [address] [place] [address] Johnny Penn MD [address] [facility] [address] [place], [place] [address] 11/28/2024 7:45 AM CDT Virtual Visit [facility] [address] 4th [place] [address] Meredith Carrera PA-C [address] [place] [address] 169365 documented as of this encounter Visit Diagnoses Not on filedocumented in this encounter Additional Health Concerns Infection Onset Date Last Indicated Resolved Time Rule Out COVID-19 05/17/2022 05/17/2022 05/17/2022 10:20 PM PHARMACEUTICAL DETAILER Rule Out COVID-19 06/09/2022 06/09/2022 06/09/2022 9:35 AM PHARMACEUTICAL DETAILER COVID-19 06/09/2022 06/09/2022 06/30/2022 11:4 1 PM PHARMACEUTICAL DETAILER Rule Out COVID-19 11/10/2022 11/10/2022 11/11/2022 12:17 PM CDT Rule Out COVID-19 03/07/2023 03/07/2023 03/07/2023 1:20 PM CDT Rule Out COVID-19 12/26/2023 12/26/2023 12/26/2023 9:50 AM CDT Rule Out COVID-19 04/09/2024 04/09/2024 04/10/2024 6:48 PM CDT Assessment Noted Time PHQ-9 Depression Total Score: 2 12/19/19 2:50 PM CDT documented as of this encounter Care Teams Repairer Handtools Relationship Specialty Start Date End Date Marija Edgar APRN DENTAL TECHNOLOGY ADVISOR PCP - General Nurse Practitioner 04/30/20 04/14/23 Esha Grimm PA-C [address] [place] [phone] PCP - General Family Medicine 05/04/23 Lita Oseguera Personal Advocate & Liaison (PAL) 02/28/20 03/27/23 Marija Edgar APRN DENTAL TECHNOLOGY ADVISOR Assigned PCP 06/08/20 04/29/23 Keisha Dotson MD [address] [place] [address] Assigned Neuroscience Provider 06/04/20 04/01/23 Diana Desir, [facility] [address] [place] [address] Pharmacist Pharmacist 04/17/21 Rain Galaviz PA-C [address] [place] [address] [address] [place] [address] Physician Computer Numerical Control Grinder Dermatology 04/28/21 Tavia Wyatt MD [address] [place] [address] [address] [place] [address] Dermatology 07/14/21 Erica Farrell APRN DENTAL TECHNOLOGY ADVISOR [address] [facility] [address] [place], [place] [address] Nurse Practitioner Cardiovascular Disease 09/09/21 Tavia Wyatt MD [address] [place] [address] Assigned Surgical Provider 11/29/21 05/07/22 Rich Barrett MD [address] [facility] [address] [place], [place] [address] Physician Ophthalmology 01/21/22 Neil Kent MD [address] [place], [place] 819685 Dermatology 02/24/22 Roney Story DPM [address] [facility] [address] [place] [address] Assigned Musculoskeletal Provider 03/20/22 08/13/22 Diana Desir, [facility] [address] [place] [address] Assigned MTM Pharmacist 04/07/22 [place] David OD [address] [facility] [place] [address] Assigned Surgical Provider 05/08/22 10/08/22 Galo Burrell MD Assigned Heart and Vascular Provider 04/17/22 06/11/22 Livan Sharif MD [address] [place] [address] Cardiovascular Disease 05/14/22 Livan Sharif MD [address] [place] [address] Assigned Heart and Vascular Provider 06/12/22 07/23/22 Catherine Cm MD [address] [facility] [address] [place] [address] Cardiovascular Disease 07/21/22 Valery Veronica, PA-C [address] [place], [place] 9232[address] Physician Computer Numerical Control Grinder Dermatology 07/21/22 Catherine Cm MD [address] [place] [address] Assigned Heart and Vascular Provider 07/24/22 11/05/22 Johnny Murillo MD [facility] [address] [address] Assigned Musculoskeletal Provider 08/14/22 10/08/22 Brea Quinn APRN DENTAL TECHNOLOGY ADVISOR 500 [place] [address] Nurse Practitioner Dermatology 09/21/22 Brea Quinn APRN DENTAL TECHNOLOGY ADVISOR [address] [place] [address] Assigned Surgical Provider 10/09/22 05/01/24 [place] [address] [address] Assigned Musculoskeletal Provider 10/09/22 05/01/24 Livan Sharif MD [address], [facility] [address] [place] [address] Assigned Heart and Vascular Provider 11/06/22 11/12/22 Catherine Cm MD [address] [facility] [address] [place] [address] Assigned Heart and Vascular Provider 11/13/22 05/27/23 Sydnie Martinez RN Personal Advocate & Liaison (PAL) Family Medicine 03/28/23 07/31/23 Alfonso Renteria MD [address] [facility] [address] [place] [address] Assigned Neuroscience Provider 04/02/23 Cheng Todd PA-C [address] [place] [address] Assigned PCP 04/30/23 07/15/23 Radha Lomeli APRN DENTAL TECHNOLOGY ADVISOR [address] [facility] [address] [place] [address] Assigned Heart and Vascular Provider 05/28/23 Jelena David OD [address] [facility] [place] [address] MD Ophthalmology 06/15/23 Pao Joseph, VJ Personal Advocate & Liaison (PAL) Nurse 08/01/23 11/07/23 Esha Grimm PA-C [address] [place] [phone] Assigned PCP 07/16/23 Valery Veronica PA-C [address] [place] [address] Physician Computer Numerical Control Grinder Dermatology 09/19/23 Rey Tay MD [address] [place] [address] 950385 Gastroenterology 09/20/23 Rocky Zepeda DO [address] [place] [address] 258555 Physician Gastroenterology 09/20/23 Philip Dumont MD [address] [place] [address] 588395 Physician Ophthalmology 09/22/23 Meredith Carrera PA-C [address] [place] [address] 330155 Assigned Gastroenterology Provider 11/01/23 Neil Kent MD [address] [address] Dermatology 11/02/23 [place] [address] 874137 Neurological Surgery 12/26/23 Audrey Waite PA-C 500 [place] [address] Physician Computer Numerical Control Grinder Dermatology 02/28/24 Valery Veronica PA-C 059220 [address] [address] Physician Computer Numerical Control Grinder Dermatology 04/10/24 Herminia Hatch MD [facility]5 [place], [place] [address] Assigned Rheumatology Provider 07/02/24 documented as of this encounter
--- OUTSIDE RECORDS SUMMARY | 2024-07-22 20:44 | XMS_ITS | Encounter Summary ---
Author Organization [employer] Address [address] [place] [address] Care Team Providers Care Financial Aid Counselor Name Role Phone Lita Oseguera Unavailable Unavailable Marija Edgar APRN CARE MANAGEMENT ASSISTANT Primary Care Provider + Marija Edgar APRN CARE MANAGEMENT ASSISTANT Unavailable [phone] Keisha Dotson MD Unavailable Diana Desir [facility] Unavailable [phone] Rain Galaviz PA-C Unavailable Tavia Wyatt MD Unavailable [phone] Erica Farrell APRN CARE MANAGEMENT ASSISTANT Unavailable Tavia Wyatt MD Unavailable [phone] Rich Barrett MD Unavailable [phone] Neil Kent MD Unavailable Roney Story DPM Unavailable Erica Farrell APRN CARE MANAGEMENT ASSISTANT Unavailable Diana Desir [facility] Unavailable [phone] Jelena David OD Unavailable Galo Burrell MD Unavailable Unavailable Livan Sharif MD Unavailable Livan Sharif MD Unavailable + Isfaby, Catherine Marques MD Unavailable + Valery Veronica PA-C Unavailable +[phone] IsraynaCatherine boothe MD Unavailable + Johnny Murillo MD Unavailable [phone] Brea [facility] HELICOPTER PILOT CARE MANAGEMENT ASSISTANT Unavailable [phone] Brea Quinn [facility] HELICOPTER PILOT CARE MANAGEMENT ASSISTANT Unavailable [phone] Jose Francisco Johnson MD Unavailable Livan Sharif MD Unavailable + Isfaby, Catherine Marques MD Unavailable + Sydnie Martinez RN Unavailable Unavailable Alfonso Renteria MD Unavailable [phone] Esha Grimm PA-C Primary Care Provider Cheng Todd PA-C Unavailable Radha Lomeli [facility] HELICOPTER PILOT CARE MANAGEMENT ASSISTANT Unavailable [phone] Jelena David SONJA Unavailable Pao Joseph RN Unavailable Unavailable Esha Grimm PA-C Unavailable [phone] Valery Veronica PA-C Unavailable [phone] Rey Tay MD Unavailable Rocky Zepeda DO Unavailable Philip Dumont MD Unavailable [phone] Meredith Carrera PA-C Unavailable [phone] Neil Kent MD Unavailable Juan Pablo Emmanuel MD Unavailable Audrey Waite PA-C Unavailable [phone] Valery Veronica PA-C Unavailable [phone] Herminia Hatch MD Unavailable Encounter Details Date Type Department Care Team (Late st Contact Info) Description 04/07/2022 MyC Medical Advice [address] [address] Diana Desir, [facility] [address] [place] [address] Social History Tobacco Use Types Packs/Day Years [...] How often do you attend denominational or religion serv ices? Never 09/22/2021 Do [...] Answer Date Recorded PHQ-2 Score 2 12/18/2021 [facility] [...] in a half-way (including now)? No 09/22/2021 [place] Depression Scale Answer Date Recorded [place] Depression Score 5 01/14/2021 Last EPDS Self Harm Result Not on file 01/14 Education Answer Date Recorded What is the highest level of school you have completed or the highest degree you have received? 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 PUBLICITY WRITER Gender Identity Female 03/02/2021 5:45 PM CDT [...] Office Visit [facility] Neurology [address], [address] [place] [address] [place] [address] [place] [place], [place] [address] Johnny Penn MD [address] [place], [place] [address] 11/28/2024 7:45 AM CDT Virtual Visit [facility] [address] [place] [address] Meredith Carrera PA-C [address] [place] [address] 041355 documented as of this encounter Visit Diagnoses Not on filedocumented in this encounter Additional Health Concerns Infection Onset Date Last Indicated Resolved Time Rule Out COVID-19 04/26/2022 04/26/2022 04/26/2022 6:47 AM CDT Rule Out COVID-19 05/17/2022 05/17/2022 05/17/2022 10:20 PM PUBLICITY WRITER Rule Out COVID-19 06/09/2022 06/09/2022 06/09/2022 9:35 AM PUBLICITY WRITER COVID-19 06/09/2022 06/09/2022 06/30/2022 11:4 1 PM PUBLICITY WRITER Rule Out COVID-19 11/10/2022 11/10/2022 11/11/2022 12:17 PM CDT Rule Out COVID-19 03/07/2023 03/07/2023 03/07/2023 1:20 PM CDT Rule Out COVID-19 12/26/2023 12/26/2023 12/26/2023 9:50 AM CDT Rule Out COVID-19 04/09/2024 04/09/2024 04/10/2024 6:48 PM CDT Assessment Noted Time PHQ-9 Depression Total Score: 2 12/19/19 22 2:50 PM CDT documented as of this encounter Care Teams Financial Aid Counselor Relationship Specialty Start Date End Date Marija Edagr APRN CARE MANAGEMENT ASSISTANT PCP - General Nurse Practitioner 04/30/20 04/14/23 Esha Grimm PA-C [address] [place] [address] PCP - General Family Medicine 05/04/23 Lita Oseguera Personal Advocate & Liaison (PAL) 02/28/20 03/27/23 Marija Edgar APRN CARE MANAGEMENT ASSISTANT Assigned PCP 06/08/20 04/29/23 Keisha Dotson MD 9 [place] [address] Assigned Neuroscience Provider 06/04/20 04/01/23 Diana Desir, [facility] 30[address] [place] [address] Pharmacist Pharmacist 04/17/21 Rain Galaviz PA-C [address] [place] [address] [address] [place] [address] Physician Research Laboratory Manager Dermatology 04/28/21 Tavia Wyatt MD [address] [place] [address] [address] [place] [address] Dermatology 07/14/21 Erica Farrell APRN CARE MANAGEMENT ASSISTANT 6405 [facility] [address] [place] [address] Nurse Practitioner Cardiovascular Disease 09/09/21 Tavia Wyatt MD [address] [place] [address] Assigned Surgical Provider 11/29/21 05/07/22 Rich Barrett MD [address] 243695 Physician Ophthalmology 01/21/22 Neil Kent MD 500 [place] [address] Dermatology 02/24/22 Roney Story DPM [address] [facility] 300 [place] [address] Assigned Musculoskeletal Provider 03/20/22 08/13/22 Erica Farrell APRN CARE MANAGEMENT ASSISTANT 1700 [place] [address] Assigned Heart and Vascular Provider 04/03/22 04/16/22 [facility] [address] [place] [address] Assigned MTM Pharmacist 04/07/22 Jelena David OD [address] [facility] [place] [address] Assigned Surgical Provider 05/08/22 10/08/22 Galo Burrell MD Assigned Heart and Vascular Provider 04/17/22 06/11/22 Livan Sharif MD [address] [facility] [address] [place], [place] 225985 Cardiovascular Disease 05/14/22 Livan Sharif MD [address] [facility] [address] [place] [address] Assigned Heart and Vascular Provider 06/12/22 07/23/22 Catherine Cm MD [address] [place] 969925 Cardiovascular Disease 07/21/22 Valeyr Veronica, PAUcheC 909 [place], [place] 380815 Physician Research Laboratory Manager Dermatology 07/21/22 Catherine Cm MD [address] [place] 0471800 [place] [address] Assigned Heart and Vascular Provider 07/24/22 11/05/22 Johnny Murillo MD [address] [place] [address] Assigned Musculoskeletal Provider 08/14/22 10/08/22 Brea Quinn APRN CARE MANAGEMENT ASSISTANT [address] [place] [address] 588725 Nurse Practitioner Dermatology 09/21/22 Brea Quinn APRN CARE MANAGEMENT ASSISTANT [address] [place] [address] Assigned Surgical Provider 10/09/22 05/01/24 [place] [address] [address] Assigned Musculoskeletal Provider 10/09/22 05/01/24 Livan Sharif MD [address] [place] 2177200 [place] [address] Assigned Heart and Vascular Provider 11/06/22 11/12/22 Catherine Cm MD 6405 [facility] S [facility]00 [place] 218215 Assigned Heart and Vascular Provider 11/13/22 05/27/23 Sydnie Martinez, RN Personal Advocate & Liaison (PAL) Family Medicine 03/28/23 07/31/23 Alfonso Renteria MD 5775 [facility] 200 [place] [address] Assigned Neuroscience Provider 04/02/23 Cheng Todd PA-C [address] [place] [address] [id number] Assigned PCP 04/30/23 07/15/23 Radha Lomeli APRN CARE MANAGEMENT ASSISTANT [address] [place] [phone] [place] [address] Assigned Heart and Vascular Provider 05/28/23 Jelena David OD [address] [facility] [place] [address] Ophthalmology 06/15/23 Pao Joseph RN Personal Advocate & Liaison (PAL) Nurse 08/01/23 11/07/23 Esha Grimm PA-C [address] [place] [address] Assigned PCP 07/16/23 Valery Veronica PA-C [address] [place] [address] Physician Research Laboratory Manager Dermatology 09/19/23 Rey Tay MD [address] [place] [address] 016665 Gastroenterology 09/20/23 Rocky Zepeda DO [address] [place] [address] 473853 Physician Gastroenterology 09/20/23 Philip Dumont MD 6 [place] [address] Physician Ophthalmology 09/22/23 Meredith Carrera PA-C [address] [place] [address] Assigned Gastroenterology Provider 11/01/23 Neil Kent MD [address] [place] [address] 852990 MD Dermatology 11/02/23 [place] [address] [address] 721607 Neurological Surgery 12/26/23 Audrey Waite PA-C [address] [place] [address] Physician Research Laboratory Manager Dermatology 02/28/24 Valery Veronica PA-C [address] [place] [address] Physician Research Laboratory Manager Dermatology 04/10/24 Herminia Hatch MD 1875 [place], [place] 23026[address] Assigned Rheumatology Provider 07/02/24 documented as of this encounter
--- OUTSIDE RECORDS SUMMARY | 2024-07-22 20:44 | XMS_ITS | Encounter Summary ---
Author Organization [facility] Address [address] [place] [address] Care Team Providers Care Air Bag Buffer Name Role Phone Lita Oseguera Unavailable Unavailable Marija Edgar APRN INSOLE TOE SNIPPING MACHINE OPERATOR Primary Care Provider + Marija Edgar APRN INSOLE TOE SNIPPING MACHINE OPERATOR Unavailable Keisha Dotson MD Unavailable [phone] Diana Desir [facility] Unavailable [phone] Rain Galaviz PA-C Unavailable Tavia Wyatt MD Unavailable Erica Farrell APRN INSOLE TOE SNIPPING MACHINE OPERATOR Unavailable Rich Barrett MD Unavailable Neil Kent MD Unavailable Roney Story DPM Unavailable Diana Desir [facility] Unavailable [phone] Jelena David OD Unavailable Galo Burrell MD Unavailable Unavailable Livan Sharif MD Unavailable Livan Sharif MD Unavailable Catherine Cm MD Unavailable + Valery Veronica PA-C Unavailable Catherine Cm MD Unavailable + Johnny Murillo MD Unavailable [phone] Brea Quinn [employer] INSOLE TOE SNIPPING MACHINE OPERATOR Unavailable [phone] Brea Quinn [employer] INSOLE TOE SNIPPING MACHINE OPERATOR Unavailable [phone] Jose Francisco Johnson MD Unavailable Livan Sharif MD Unavailable Catherine Cm MD Unavailable + Sydnie Martinez RN Unavailable Unavailable Alfonso Renteria MD Unavailable Esha Grimm PA-C Primary Care Provider Cheng Todd PA-C Unavailable [phone] Radha Lomeli [employer] INSOLE TOE SNIPPING MACHINE OPERATOR Unavailable Frankie Jelena Gacria OD Unavailable Pao Joseph RN Unavailable Unavailable Esha Grimm PA-C Unavailable [phone] JeremíasValery damon PA-C Unavailable Rey Tay MD Unavailable Rocky Zepeda DO Unavailable Philip Dumont MD Unavailable [phone] Meredith Carrera PA-C Unavailable [phone] Neil Kent MD Unavailable Juan Pablo Emmanuel MD Unavailable Audrey Waite PA-C Unavailable Valery Veronica PA-C Unavailable Herminia Hatch MD Unavailable Encounter Details Date Type Department Care Team (Late st Contact Info) Description 05/11/2022 MyC Medical Advice [address] [address] Diana Desir, [facility] [address] [place] [address] Social History Tobacco Use Types Packs/Day Years [...] often do you attend oriental orthodox or church serv ices? Never 09/22/2021 Do [...] points; Administer PHQ-9 if positive 1 05/13/2022 [facility] Occup[facility] [...] in a prison (including now)? No 09/22/2021 Oliver Depression Scale Answer Date Recorded Oliver Depression Score 5 01/14/2021 Last EPDS Self Harm Result Not on file 01/14 Education Answer Date Recorded What is the highest level of school you have completed or the highest degree you have received? 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 FOCUSING MACHINE OPERATOR Gender Identity Female 03/02/2021 5:45 [...] CDT Office Visit [facility] Neurology [address], [address] [place] [address] [place] [address] [place], [place] [phone] Johnny Penn MD [address] [facility] [address], [place] [address] 11/28/2024 7:45 AM CDT Virtual Visit [facility] Gastroenterology Clinic [address] 4th [place] [address] Meredith Carrera PA-C [address] [place] [address] 601555 documented as of this encounter Visit Diagnoses Not on filedocumented in this encounter Additional Health Concerns Infection Onset Date Last Indicated Resolved Time Rule Out COVID-19 05/17/2022 05/17/2022 05/17/2022 10:20 PM FOCUSING MACHINE OPERATOR Rule Out COVID-19 06/09/2022 06/09/2022 06/09/2022 9:35 AM FOCUSING MACHINE OPERATOR COVID-19 06/09/2022 06/09/2022 06/30/2022 11:4 1 PM FOCUSING MACHINE OPERATOR Rule Out COVID-19 11/10/2022 11/10/2022 11/11/2022 12:17 PM CDT Rule Out COVID-19 03/07/2023 03/07/2023 03/07/2023 1:20 PM CDT Rule Out COVID-19 12/26/2023 12/26/2023 12/26/2023 9:50 AM CDT Rule Out COVID-19 04/09/2024 04/09/2024 04/10/2024 6:48 PM CDT Assessment Noted Time PHQ-9 Depression Total Score: 3 05/13/20 8:49 PM CDT documented as of this encounter Care Teams Air Bag Buffer Relationship Specialty Start Date End Date Marija Edgar APRN INSOLE TOE SNIPPING MACHINE OPERATOR PCP - General Nurse Practitioner 04/30/20 04/14/23 Esha Grimm PA-C [address] [place] [phone] PCP - General Family Medicine 05/04/23 Lita Oseguera Personal Advocate & Liaison (PAL) 02/28/20 03/27/23 Marija Edgar APRN INSOLE TOE SNIPPING MACHINE OPERATOR Assigned PCP 06/08/20 04/29/23 Keisha Dotson MD [address]09 [place] [address] Assigned Neuroscience Provider 06/04/20 04/01/23 Diana Desir, [facility] [address] [place] [address] Pharmacist Pharmacist 04/17/21 Rain Galaviz PA-C [address] [place] [address] [address] [place] [address] Physician Vasc Tech Dermatology 04/28/21 Tavia Wyatt MD [address] [place] [address] [address] [place] [id number] Dermatology 07/14/21 Erica Farrell APRN INSOLE TOE SNIPPING MACHINE OPERATOR [address] [place], [place] [address] Nurse Practitioner Cardiovascular Disease 09/09/21 Rich Barrett MD 516 [facility] [address] [place], [place] [address] Physician Ophthalmology 01/21/22 Neil Kent MD 500 [place], [place] 119225 Dermatology 02/24/22 Roney Story DPM [address] [facility] [address] [place] [address] Assigned Musculoskeletal Provider 03/20/22 08/13/22 Diana Desir, [facility] [address] [place] [address] Assigned MTM Pharmacist 04/07/22 Jelena David [address] [facility] [place] [address] Assigned Surgical Provider 05/08/22 10/08/22 Galo Burrell MD Assigned Heart and Vascular Provider 04/17/22 06/11/22 Livan Sharif MD [address], [facility] [address] [place], [place] [address] Cardiovascular Disease 05/14/22 Livan Sharif MD [address], [facility] [address] [place] [address] Assigned Heart and Vascular Provider 06/12/22 07/23/22 Catherine Cm MD [address] [facility] [place] [address] Cardiovascular Disease 07/21/22 Valery Veronica, PA-C [address] [place] [address] Physician Vasc Tech Dermatology 07/21/22 Catherine Cm MD [address] [facility] [place] [address] Assigned Heart and Vascular Provider 07/24/22 11/05/22 Johnny Murillo MD [address] [place] [address] Assigned Musculoskeletal Provider 08/14/22 10/08/22 Brea Quinn APRN INSOLE TOE SNIPPING MACHINE OPERATOR [address] [place] [address] Nurse Practitioner Dermatology 09/21/22 Brea Quinn APRN INSOLE TOE SNIPPING MACHINE OPERATOR 6401 [facility] [place] [address] Assigned Surgical Provider 10/09/22 05/01/24 [place] [address] [facility] 300 [place] [address] Assigned Musculoskeletal Provider 10/09/22 05/01/24 Livan Sharif MD [address] [facility] [address] [place] [address] Assigned Heart and Vascular Provider 11/06/22 11/12/22 Catherine Cm MD [address] [facility] [facility]00 [place] 308375 Assigned Heart and Vascular Provider 11/13/22 05/27/23 Sydnie Martinez, RN Personal Advocate & Liaison (PAL) Family Medicine 03/28/23 07/31/23 Alfonso Renteria MD 5775 [facility] 200 [place] [address] Assigned Neuroscience Provider 04/02/23 Cheng Todd PA-C [address] [place] [address] Assigned PCP 04/30/23 07/15/23 Radha Lomeli APRN INSOLE TOE SNIPPING MACHINE OPERATOR [address] [place] [address] Assigned Heart and Vascular Provider 05/28/23 Jelena David OD [address] [facility] [place] [address] MD Ophthalmology 06/15/23 Pao Joseph, RN Personal Advocate & Liaison (PAL) Nurse 08/01/23 11/07/23 Esha Grimm PA-C [address] [place] [address] Assigned PCP 07/16/23 Valery Veronica PA-C [address] [place] [address] 569035 Physician Vasc Tech Dermatology 09/19/23 Rey Tay MD [address] [place] [address] Gastroenterology 09/20/23 Rocky Zepeda DO [address] [place] [address] 282595 Physician Gastroenterology 09/20/23 Philip Dumont MD [address] [place] [address] Physician Ophthalmology 09/22/23 Meredith Carrera PA-C [address] [place] [address] 755645 Assigned Gastroenterology Provider 11/01/23 Neil Kent MD [address] 163880 Dermatology 11/02/23 [place] [address] 105[address] Neurological Surgery 12/26/23 Audrey Waite PA-C 500 [place] [address] Physician Vasc Tech Dermatology 02/28/24 Valery Veronica PA-C [address] [place] [address] Physician Vasc Tech Dermatology 04/10/24 Herminia Htach MD [facility]5 [place], [place] [address] Assigned Rheumatology Provider 07/02/24 documented as of this encounter
--- OUTSIDE RECORDS SUMMARY | 2024-07-22 20:44 | XMS_ITS | Encounter Summary ---
Author Organization [facility] Address [address] [place] [address] Care Team Providers Care Continuous Miner Operator Helper Name Role Phone Lita Oseguera Unavailable Unavailable Marija Edgar APRN ELECTRONIC SALES AND SERVICE TECHNICIAN Primary Care Provider + Marija Edgar APRN ELECTRONIC SALES AND SERVICE TECHNICIAN Unavailable [phone] Keisha Dotson MD Unavailable [phone] Galo Burrell MD Unavailable Unavailable Daina Desir [facility] Unavailable Rain Galaviz PA-C Unavailable Summer Lara MD Unavailable [phone] Tavia Wyatt MD Unavailable Johnny Murillo MD Unavailable Erica Farrell APRN ELECTRONIC SALES AND SERVICE TECHNICIAN Unavailable Tavia Wyatt MD Unavailable Diana Desir [facility] Unavailable Rich Barrett MD Unavailable Neil Kent MD Unavailable Roney Story DPM Unavailable [phone] Erica Farrell APRN ELECTRONIC SALES AND SERVICE TECHNICIAN Unavailable + Diana Desir [facility] Unavailable Jelena David OD Unavailable Galo Burrell MD Unavailable Unavailable HoLivan MD Unavailable Livan Sharif MD Unavailable IskoCatherine boothe MD Unavailable + Valery Veronica PA-C Unavailable [phone] Catherine Cm MD Unavailable + Johnny Murillo MD Unavailable [phone] Brea Quinn NURSE TRANSITION ELECTRONIC SALES AND SERVICE TECHNICIAN Unavailable [phone] Brea Quinn NURSE TRANSITION ELECTRONIC SALES AND SERVICE TECHNICIAN Unavailable [phone] Jose Francisco Johnson MD Unavailable Livan Sharif MD Unavailable + IsCatherine boothe MD Unavailable + Sydnie Martinez RN Unavailable Unavailable Alfonso Renteria MD Unavailable Esha Grimm PA-C Primary Care Provider Cheng Todd PA-C Unavailable Radha Lomeli NURSE TRANSITION ELECTRONIC SALES AND SERVICE TECHNICIAN Unavailable [phone] Jelena David OD Unavailable Pao Joseph RN Unavailable Unavailable Esha Grimm PA-C Unavailable [phone] Valery Veronica PA-C Unavailable [phone] Rey Tay MD Unavailable Rocky Zepeda DO Unavailable Philip Dumont MD Unavailable [phone] Meredith Carrera PA-C Unavailable [phone] Neil Kent MD Unavailable Juan Pablo Emmanuel MD Unavailable [phone] Audrey Waite PA-C Unavailable [phone] Valery Veronica PA-C Unavailable [phone] Herminia Hatch MD Unavailable Encounter Details Date Type Department Care Team (Late st Contact Info) Description 03/09/2022 MyC Medical Advice [address] [address] Abby Dye Social History Tobacco [...] often do you attend yazidi or worship serv ices? Never 09/22/2021 Do [...] Answer Date Recorded PHQ-2 Score 2 12/18/2021 [facility] of Occupat ional [facility] - Occupational Stress Questionnaire Answer [...] in a fpc (including now)? No 09/22/2021 [place] Depression Scale Answer Date Recorded [place] Depression Score 5 01/14/2021 Last EPDS Self Harm Result Not on file 01/14 Education Answer Date Recorded What is the highest level of school you have completed or the highest degree you have received? 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 MARKETING SALES SUPERVISOR Gender Identity Female 03/02/2021 5:45 PM [...] Description 10/23/2024 9:30 AM CDT Office Visit [facility] Neurology [address], [address] [place] [address] [place] [address] [place], [place] [address] Johnny Penn MD 1643 [place], [place] [address] 11/28/2024 7:45 AM CDT Virtual Visit [facility] Gastroenterology Clinic [address] 4th [place] [phone] Meredith Carrera PAUcheC [address] [place] [address] documented as of this encounter Visit Diagnoses Not on filedocumented in this encounter Additional Health Concerns Infection Onset Date Last Indicated Resolved Time Rule Out COVID-19 04/26/2022 04/26/2022 04/26/2022 6:47 AM CDT Rule Out COVID-19 05/17/2022 05/17/2022 05/17/2022 10:20 PM MARKETING SALES SUPERVISOR Rule Out COVID-19 06/09/2022 06/09/2022 06/09/2022 9:35 AM MARKETING SALES SUPERVISOR COVID-19 06/09/2022 06/09/2022 06/30/2022 11:4 1 PM MARKETING SALES SUPERVISOR Rule Out COVID-19 11/10/2022 11/10/2022 11/11/2022 12:17 PM CDT Rule Out COVID-19 03/07/2023 03/07/2023 03/07/2023 1:20 PM CDT Rule Out COVID-19 12/26/2023 12/26/2023 12/26/2023 9:50 AM CDT Rule Out COVID-19 04/09/2024 04/09/2024 04/10/2024 6:48 PM CDT Assessment Noted Time PHQ-9 Depression Total Score: 2 12/19/19 22 2:50 PM CDT documented as of this encounter Care Teams Continuous Miner Operator Helper Relationship Specialty Start Date End Date Marija Edgar APRN ELECTRONIC SALES AND SERVICE TECHNICIAN PCP - General Nurse Practitioner 04/30/20 04/14/23 Esha Grimm PA-C [address] [place] [phone] PCP - General Family Medicine 05/04/23 Lita Oseguera Personal Advocate & Liaison (PAL) 02/28/20 03/27/23 Marija Edgar APRN ELECTRONIC SALES AND SERVICE TECHNICIAN Assigned PCP 06/08/20 04/29/23 Keisha Dotson MD 909 [place] [address] Assigned Neuroscience Provider 06/04/20 04/01/23 Galo Burrell MD Assigned Heart and Vascular Provider 10/05/20 04/02/22 [facility] [address] [place] [address] Pharmacist Pharmacist 04/17/21 Rain Galaviz PA-C [address] [facility] [place] [address] Physician Health Researcher Dermatology 04/28/21 Summer Lara MD [address] [place] [address] Assigned OBGYN Provider 05/31/21 2 Tavia Wyatt MD [address] [place], [place] [address]E [place], [place] 3[address] Dermatology 07/14/21 Johnny Murillo MD [address] [place] [address] Assigned Musculoskeletal Provider 08/30/21 03/17/22 Erica Farrell APRN ELECTRONIC SALES AND SERVICE TECHNICIAN 6405 [facility] [address] [place] [address] Nurse Practitioner Cardiovascular Disease 09/09/21 Tavia Wyatt MD [address] [place] [address] Assigned Surgical Provider 11/29/21 05/07/22 Diana Desir, [facility] [address] [place] [address] Assigned MTM Pharmacist 01/02/22 Rich Barrett MD [address] [address] Physician Ophthalmology 01/21/22 Neil Kent MD 500 [place], [place] [address]115 Dermatology 02/24/22 Roney Story DPM [address] [facility] [address] [place] [address] Assigned Musculoskeletal Provider 03/20/22 08/13/22 Erica Farrell APRN ELECTRONIC SALES AND SERVICE TECHNICIAN 1700 [place] [address] Assigned Heart and Vascular Provider 04/03/22 04/16/22 Diana Desir, [facility] [address] [place] [address] Assigned MTM Pharmacist 04/07/22 Jelena David OD [address] [facility] [place] [address] Assigned Surgical Provider 05/08/22 10/08/22 Galo Burrell MD Assigned Heart and Vascular Provider 04/17/22 06/11/22 Livan Sharif MD [address], [facility] [address] [place] [address] Cardiovascular Disease 05/14/22 Livan Sharif MD [address], [facility] [address] [place] [address] Assigned Heart and Vascular Provider 06/12/22 07/23/22 Catherine Cm MD [address] [facility]00 [place] [address] Cardiovascular Disease 07/21/22 Valery Veronica, PA-C [address] [place] [address] Physician Health Researcher Dermatology 07/21/22 Catherine Cm MD [address] [facility] [address] [place] [address] Assigned Heart and Vascular Provider 07/24/22 11/05/22 Johnny Murillo MD [address] [place] [address] 504194 Assigned Musculoskeletal Provider 08/14/22 10/08/22 Brea Quinn APRN ELECTRONIC SALES AND SERVICE TECHNICIAN [address] [place] [address] 139575 Nurse Practitioner Dermatology 09/21/22 Brea Quinn APRN ELECTRONIC SALES AND SERVICE TECHNICIAN [address] [place] [address], [place] [address] Assigned Surgical Provider 10/09/22 05/01/24 [place] [address] [place] [address] Assigned Musculoskeletal Provider 10/09/22 05/01/24 Livan Sharif MD [address] [facility] [address] [place] [address] Assigned Heart and Vascular Provider 11/06/22 11/12/22 Catherine Cm MD [address] [facility]00 [place] 487125 Assigned Heart and Vascular Provider 11/13/22 05/27/23 Sydnie Martinez RN Personal Advocate & Liaison (PAL) Family Medicine 03/28/23 07/31/23 Alfonso Renteria MD 5775 [facility] 200 [place] [address] Assigned Neuroscience Provider 04/02/23 Cheng Todd PA-C [address] [place] [address] Assigned PCP 04/30/23 07/15/23 Radha Lomeli APRN ELECTRONIC SALES AND SERVICE TECHNICIAN [address] [place] [address] Assigned Heart and Vascular Provider 05/28/23 Jelena David OD 3305 [facility] [place] [address] MD Ophthalmology 06/15/23 Pao Joseph, RN Personal Advocate & Liaison (PAL) Nurse 08/01/23 11/07/23 Esha Grimm PA-C [address] [place] [address] Assigned PCP 07/16/23 Valery Veronica PA-C [address] [place] [address] Physician Health Researcher Dermatology 09/19/23 Rey Tay MD [address] [place] [address] MD Gastroenterology 09/20/23 Rocky Zepeda DO [address] [place] [address] Physician Gastroenterology 09/20/23 Philip Dumont MD [address] [place] [address] Physician Ophthalmology 09/22/23 Meredith Carrera PA-C [address] [place] [address] Assigned Gastroenterology Provider 11/01/23 Neil Kent MD [address] 839840 Dermatology 11/02/23 [place] [address] [place] [address] Neurological Surgery 12/26/23 Audrey Waite PA-C 500 [place] [address] Physician Health Researcher Dermatology 02/28/24 Valery Veronica PA-C [address] [place] [address] Physician Health Researcher Dermatology 04/10/24 Herminia Hatch MD [address] [place] [address] [id number] Assigned Rheumatology Provider 07/02/24 documented as of this encounter
--- OUTSIDE RECORDS SUMMARY | 2024-07-22 20:44 | XMS_ITS | Encounter Summary ---
Author Organization [facility] Address [address] [place] [address] Care Team Providers Care Supervisor Communications And Signals Name Role Phone Lita Oseguera Unavailable Unavailable Marija Edgar APRN TOWEL CABINET REPAIRER Primary Care Provider + Marija Edgar APRN TOWEL CABINET REPAIRER Unavailable [phone] Keisha Dotson MD Unavailable [phone] Diana Desir [facility] Unavailable Rain Galaviz PA-C Unavailable Tavia Wyatt MD Unavailable Erica Farrell APRN TOWEL CABINET REPAIRER Unavailable Rich Barrett MD Unavailable Neil Kent MD Unavailable Roney Story DPM Unavailable Diana Desir [facility] Unavailable Jelena David OD Unavailable [phone] Livan Sharif MD Unavailable Livan Sharif MD Unavailable Catherine Cm MD Unavailable + Valery Veronica PA-C Unavailable Catherine Cm MD Unavailable + Johnny Murillo MD Unavailable [phone] Brea Quinn [employer] REPAIRER TOWEL CABINET REPAIRER Unavailable [phone] Brea Quinn [employer] REPAIRER TOWEL CABINET REPAIRER Unavailable [phone] Jose Francisco Johnson MD Unavailable Livan Sharif MD Unavailable Catherine Cm MD Unavailable + Sydnie Martinez RN Unavailable Unavailable Alfonso Renteria MD Unavailable Esha Grimm PA-C Primary Care Provider Cheng Todd PA-C Unavailable [phone] Radha Lomeli [employer] REPAIRER TOWEL CABINET REPAIRER Unavailable Jelena David OD Unavailable Pao Joseph RN Unavailable Unavailable Esha Grimm PA-C Unavailable [phone] Valery Veronica PA-C Unavailable [phone] Rey Tay MD Unavailable Rocky Zepeda DO Unavailable Philip Dumont MD Unavailable [phone] Meredith Carrera PA-C Unavailable Neil Kent MD Unavailable Juan Pablo Emmnauel MD Unavailable Audrey Waite PA-C Unavailable [phone] Valery Veronica PA-C Unavailable Herminia Hatch MD Unavailable Encounter Details Date Type Department Care Team (Late st Contact Info) Description 07/07/2022 MyC Medical Advice [facility] [address] [facility] [address] [place] [address] Livan Sharif MD [address] [place] [address] Social History Tobacco Use Types Packs/Day Years [...] How often do you attend tenriism or rastafarian serv ices? Never 09/22/2021 Do [...] points; Administer PHQ-9 if positive 1 05/13/2022 [facility] [place] of Occupat ional Health - Occupational [...] in a residential (including now)? No 09/22/2021 [place] Depression Scale Answer Date Recorded [place] Depression Score 5 01/14/2021 Last EPDS Self Harm Result Not on file 01/14 Education Answer Date Recorded What is the highest level of school you have completed or the highest degree you have received? 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 AUDIO DIRECTOR Gender Identity Female 03/02/2021 5:45 PM CDT Sexual Orientation Straight 02/28/2020 12 :51 AM CDT COVID-19 Exposure Response Date Recorded In the last 10 days, have yo u been in contact with someone who was confirmed or suspected to have Coronavirus/COVID-19? No / Unsure 06/25/2022 8:44 AM AUDIO DIRECTOR documented as of this encounter Plan of Treatment Upcoming Encounters Date Type Department Care Team (Late st Contact Info) Description 10/23/2024 9:30 AM CDT Office Visit [facility] Neurology Clinics [address], [address] [place] [address] [place] [address] [place] [address] Johnny Penn MD [address] [facility] [place] [id number] 11/28/2024 7:45 AM CDT Virtual Visit [facility] Gastroenterology [facility] [address] 4th [place] [address] Meredith Carrera PA-C [address] [place] [address] [phone] documented as of this encounter Visit Diagnoses [...] as of this encounter Care Teams Supervisor Communications And Signals Relationship Specialty Start Date End Date Marija Edgar APRN TOWEL CABINET REPAIRER PCP - General Nurse Practitioner 04/30/20 04/14/23 Esha Grimm PA-C [address] [place] [phone] PCP - General Family Medicine 05/04/23 Lita Oseguera Personal Advocate & Liaison (PAL) 02/28/20 03/27/23 Marija Edgar APRN TOWEL CABINET REPAIRER Assigned PCP 06/08/20 04/29/23 Keisha Dotson MD [address] [place], [place] 153085 Assigned Neuroscience Provider 06/04/20 04/01/23 Diana Desir [facility] [address] [place], [place] 765406 Pharmacist Pharmacist 04/17/21 Rain Galaviz PA-C [address] [place] [address] [place] [address] Physician Director Of Strategic Sales Dermatology 04/28/21 Tavia Wyatt MD [address] [place] [address] [address] [place] [address] Dermatology 07/14/21 Erica Farrell APRN TOWEL CABINET REPAIRER [address] [place] [address] Nurse Practitioner Cardiovascular Disease 09/09/21 Rich Barrett MD [address] [place] [address] 651405 Physician Ophthalmology 01/21/22 Neil Kent MD 500 [place] [address] Dermatology 02/24/22 Roney Story DPM [address] [facility] [address] [place] [address] Assigned Musculoskeletal Provider 03/20/22 08/13/22 Diana Desir, [facility] [address] [place] [address] Assigned MTM Pharmacist 04/07/22 Jelena David OD [address] [facility] [place] [address] Assigned Surgical Provider 05/08/22 10/08/22 Livan Sharif MD [address] [place] [address] Cardiovascular Disease 05/14/22 Livan Sharif MD [address], [facility] [address] [place] [address]24005 Assigned Heart and Vascular Provider 06/12/22 07/23/22 Catherine Cm MD [address] [facility]00 [place] [address] Cardiovascular Disease 07/21/22 Valery Veronica, PA-C [address] [place] [address] 343455 Physician Director Of Strategic Sales Dermatology 07/21/22 Catherine Cm MD [address] [place] [id number] [place] [address] Assigned Heart and Vascular Provider 07/24/22 11/05/22 Johnny Murillo MD [address] [place] [address] [id number] Assigned Musculoskeletal Provider 08/14/22 10/08/22 Brea Quinn APRN TOWEL CABINET REPAIRER [address] [place] [address] Nurse Practitioner Dermatology 09/21/22 Brea Quinn APRN TOWEL CABINET REPAIRER [address] [place] [address] [place] [address] Assigned Surgical Provider 10/09/22 05/01/24 [place] [address] [place] [address] Assigned Musculoskeletal Provider 10/09/22 05/01/24 Livan Sharif MD [address], [facility] [address] [place] [address] Assigned Heart and Vascular Provider 11/06/22 11/12/22 Catherine Cm MD [address] [facility] [address] [place] [address] Assigned Heart and Vascular Provider 11/13/22 05/27/23 Sydnie Martinez RN Personal Advocate & Liaison (PAL) Family Medicine 03/28/23 07/31/23 Alfonso Renteria MD [address] [facility] 200 [place] [address] Assigned Neuroscience Provider 04/02/23 Cheng Todd PA-C [address] [place] [address] Assigned PCP 04/30/23 07/15/23 Radha Lomeli, ARLENE TOWEL CABINET REPAIRER [address] [place] [address] Assigned Heart and Vascular Provider 05/28/23 eJlena David OD [facility] [facility] [place] [address] Ophthalmology 06/15/23 Pao Joseph, VJ Personal Advocate & Liaison (PAL) Nurse 08/01/23 11/07/23 Esha Grimm PA-C [address] [place] [address] Assigned PCP 07/16/23 Valery Veronica PA-C [address] [place] [address] Physician Director Of Strategic Sales Dermatology 09/19/23 Rey Tay MD [address] [place] [address] MD Gastroenterology 09/20/23 Rocky Zepeda DO [address] [place] [address] 853375 Physician Gastroenterology 09/20/23 Philip Dumont MD [address] [place] [address] Physician Ophthalmology 09/22/23 Meredith Carrera PA-C [address] [place] [address] Assigned Gastroenterology Provider 11/01/23 Neil Kent MD [address] [address] Dermatology 11/02/23 [place] [address] [place] [address] Neurological Surgery 12/26/23 Audrey Waite PA-C [address] [place] [address] 423285 Physician Director Of Strategic Sales Dermatology 02/28/24 Valery Veronica PA-C [address] [place] [address] Physician Director Of Strategic Sales Dermatology 04/10/24 Herminia Hatch MD [address] [place] [address] [phone] Assigned Rheumatology Provider 07/02/24 documented as of this encounter
--- OUTSIDE RECORDS SUMMARY | 2024-07-22 20:44 | XMS_ITS | Encounter Summary ---
Author Organization [facility] Address [address] [place] [address] Care Team Providers Care Sledger Name Role Phone Lita Oseguera Unavailable Unavailable Marija Edgar APRN MARKETING AREA MANAGER Primary Care Provider + Marija Edgar APRN MARKETING AREA MANAGER Unavailable [phone] Keisha Dotson MD Unavailable Diana Desir [facility] Unavailable [phone] Rain Galaviz PA-C Unavailable Tavia Wyatt MD Unavailable Erica Farrell APRN MARKETING AREA MANAGER Unavailable Rcih Barrett MD Unavailable [phone] Neil Kent MD Unavailable Diana Desir [facility] Unavailable [phone] Jelena David OD Unavailable Livan Sharif MD Unavailable Catherine Cm MD Unavailable + Valery Veronica PA-C Unavailable Catherine Cm MD Unavailable + Johnny Murillo MD Unavailable [phone] Brea Quinn SENIOR SOLUTIONS CONSULTANT MARKETING AREA MANAGER Unavailable [phone] Brea Quinn SENIOR SOLUTIONS CONSULTANT MARKETING AREA MANAGER Unavailable [phone] Jose Francisco Johsnon MD Unavailable Livan Sharif MD Unavailable Catherine Cm MD Unavailable + Sydnie Martinez RN Unavailable Unavailable Alfonso Renteria MD Unavailable Esha Grimm PA-C Primary Care Provider Cheng Todd PA-C Unavailable [phone] Radha Lomeli SENIOR SOLUTIONS CONSULTANT MARKETING AREA MANAGER Unavailable Jelena David OD Unavailable Pao Joseph RN Unavailable Unavailable Esha Grimm PA-C Unavailable [phone] Valery Veronica PA-C Unavailable Rey Tay MD Unavailable Rocky Zepeda DO Unavailable Philip Dumont MD Unavailable Meredith Carrera PA-C Unavailable Neil Kent MD Unavailable Juan Pablo Emmanuel MD Unavailable Audrey Waite PA-C Unavailable Valery Veronica PA-C Unavailable Herminia Hatch MD Unavailable Encounter Details Date Type Department Care Team (Late st Contact Info) Description 10/06/2022 [facility] Medical Advice [address] [phone] Brea Quinn, SENIOR SOLUTIONS CONSULTANT MARKETING AREA MANAGER [address] [facility] [place] [address] Social History Tobacco Use Types Packs/Day Years [...] How often do you attend mosque or yazidi serv ices? Never 09/22/2021 Do [...] points; Administer PHQ-9 if positive 1 10/[facility]22 [facility] - [facility]ational Stress [...] in a chcf (including now)? No 09/22/2021 [place] Depression Scale Answer Date Recorded [place] Depression Score 5 01/14/2021 Last EPDS Self Harm Result Not on file 01/14 Education Answer Date Recorded What is the highest level of school you have completed or the highest degree you have received? 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 GENERAL CONTRACTOR Gender Identity Female 03/02/2021 5:45 PM CDT [...] Description 10/23/2024 9:30 AM CDT Office Visit [facility] Neurology [address], [address] [place] [address] [place] [address] [place] [address] [phone] Johnny Penn MD [address] [place], [place] [address] 11/28/2024 7:45 AM CDT Virtual Visit [facility] Gastroenterology Clinic [address] [place] [address] Meredith Carrera PA-C [address] [place] [address] documented as of this encounter Visit [...] Depression Total Score: 5 08/27/19 1:14 PM GENERAL CONTRACTOR documented as of this encounter Care Teams Sledger Relationship Specialty Start Date End Date Marija Edgar APRN MARKETING AREA MANAGER PCP - General Nurse Practitioner 04/30/20 04/14/23 Esha Grimm PA-C [address] [place] [address] PCP - General Family Medicine 05/04/23 Lita Oseguera Personal Advocate & Liaison (PAL) 02/28/20 03/27/23 Marija Edgar APRN MARKETING AREA MANAGER Assigned PCP 06/08/20 04/29/23 Keisha Dotson MD [address] [place], [place] 459[address] Assigned Neuroscience Provider 06/04/20 04/01/23 Diana Desir, [facility] [address] [place] [address] Pharmacist Pharmacist 04/17/21 Rain Galaviz PA-C [address] [facility] [place] [address] Physician Tube Carrier Dermatology 04/28/21 Tavia Wyatt MD [address] [place] [address] [address] [facility] [place] [id number] Dermatology 07/14/21 Erica Farrell APRN MARKETING AREA MANAGER [address] [place] [address] Nurse Practitioner Cardiovascular Disease 09/09/21 Rich Barrett MD 516 [facility], [address] [phone] Physician Ophthalmology 01/21/22 Neil Kent MD 500 [place], [place] 214025 Dermatology 02/24/22 Diana Desir, [facility] [address] [place], [place] [address] Assigned MTM Pharmacist 04/07/22 Jelena David OD [address] [facility] [place] [address] Assigned Surgical Provider 05/08/22 10/08/22 Livan Sharif MD [address] [place] [address] Cardiovascular Disease 05/14/22 Catherine Cm MD [address] [place] [address] Cardiovascular Disease 07/21/22 Valery Veronica, PA-C 909 [place] [address] Physician Tube Carrier Dermatology 07/21/22 Catherine Cm MD [address] [facility]00 [place] [address] Assigned Heart and Vascular Provider 07/24/22 11/05/22 Johnny Murillo MD [facility] [address] [address] Assigned Musculoskeletal Provider 08/14/22 10/08/22 Brea Quinn APRN MARKETING AREA MANAGER [address] [place] [address] 786585 Nurse Practitioner Dermatology 09/21/22 Brea Quinn APRN MARKETING AREA MANAGER [address] [place] [address] [place] [id number] Assigned Surgical Provider 10/09/22 05/01/24 [place] [address] [address] Assigned Musculoskeletal Provider 10/09/22 05/01/24 Livan Sharif MD [address] [facility] [address] [place] 584205 Assigned Heart and Vascular Provider 11/06/22 11/12/22 Catherine Cm MD [address] [facility]00 [place] 846345 Assigned Heart and Vascular Provider 11/13/22 05/27/23 Sydnie Martinez, RN Personal Advocate & Liaison (PAL) Family Medicine 03/28/23 07/31/23 Alfonso Renteria MD [address] [facility] [address] [place] [address] Assigned Neuroscience Provider 04/02/23 Cheng Todd PA-C [address] [place] [address] [phone] Assigned PCP 04/30/23 07/15/23 Radha Lomeli APRN MARKETING AREA MANAGER [address] [facility] [address] [place], [place] 427635 Assigned Heart and Vascular Provider 05/28/23 Jelena David OD [address] [facility] [place] [id number] Ophthalmology 06/15/23 Pao Joseph, VJ Personal Advocate & Liaison (PAL) Nurse 08/01/23 11/07/23 Esha Grimm PA-C [address] [place] [address] Assigned PCP 07/16/23 Valery Veronica PA-C [address] [place] [address] [phone] Physician Tube Carrier Dermatology 09/19/23 Rey Tay MD [address] [place], [place] 262965 Gastroenterology 09/20/23 Rocky Zepeda DO 500 [place] [address] Physician Gastroenterology 09/20/23 Philip Dumont MD 516 [place] [address] Physician Ophthalmology 09/22/23 Meredith Carrera PA-C [address]09 [place] [address] Assigned Gastroenterology Provider 11/01/23 Neil Kent MD [address] [address] MD Dermatology 11/02/23 [place] [address] [address] Neurological Surgery 12/26/23 Audrey Waite PA-C 500 [place] [address] Physician Tube Carrier Dermatology 02/28/24 Valery Veronica PA-C 392248 [place] [address] Physician Tube Carrier Dermatology 04/10/24 Herminia Hatch MD [facility]5 [place], [place] [phone] Assigned Rheumatology Provider 07/02/24 documented as of this encounter
--- OUTSIDE RECORDS SUMMARY | 2024-07-22 20:44 | XMS_ITS | Encounter Summary ---
Author Organization [facility] Address [address] [place] [address] Care Team Providers Care Manager Economic Name Role Phone Lita Oseguera Unavailable Unavailable Marija Edgar APRN ASSEMBLER UNIT Primary Care Provider + Marija Edgar APRN ASSEMBLER UNIT Unavailable [phone] Keisha Dotson MD Unavailable [phone] Diana Desir [facility] Unavailable Rain Galaviz PA-C Unavailable Tavia Wyatt MD Unavailable Erica Farrell APRN ASSEMBLER UNIT Unavailable Rich Barrett MD Unavailable Neil Kent MD Unavailable Roney Story DPM Unavailable Diana Desir [facility] Unavailable Jelena David OD Unavailable Livan Sharif MD Unavailable Livan Sharif MD Unavailable Catherine Cm MD Unavailable + Valery Veronica PA-C Unavailable Catherine Cm MD Unavailable + Johnny Murillo MD Unavailable [phone] Brea Quinn GEARCASE ASSEMBLER ASSEMBLER UNIT Unavailable [phone] Brea Quinn GEARCASE ASSEMBLER ASSEMBLER UNIT Unavailable [phone] Jose Francisco Johnson MD Unavailable Livan Sharif MD Unavailable Catherine Cm MD Unavailable + Sydnie Martinez RN Unavailable Unavailable Alfonso Renteria MD Unavailable Esha Grimm PA-C Primary Care Provider Cheng Todd PA-C Unavailable [phone] Radha Lomeli GEARCASE ASSEMBLER ASSEMBLER UNIT Unavailable Jelena David OD Unavailable Pao Joseph RN Unavailable Unavailable Esha Grimm PA-C Unavailable [phone] Valery Veronica PA-C Unavailable Rey Tay MD Unavailable Rocky Zepeda DO Unavailable Philip Dumont MD Unavailable [phone] Meredith Carrera PA-C Unavailable [phone] Neil Kent MD Unavailable Juan Pablo Emmanuel MD Unavailable [phone] Audrey Waite PA-C Unavailable [phone] Valery Veronica PA-C Unavailable Herminia Hatch MD Unavailable Reason for Visit * Reason Onset Date Comments Appointment 06/14/2022 Stress test and monitor on the same day Encounter Details Date Type Department Care Team (Late st Contact Info) Description 06/14/2022 Telephone [facility] Heart [facility] [address] [facility] [address] [place] [address] Livan Sharif MD [address] [place] [facility] [address] [place] [id number] Appointment (Stress test and monitor on the [...] How often do you attend caodaism or congregation serv ices? Never 09/22/2021 Do [...] in a retirement (including now)? No 09/22/2021 [place] Depression Scale Answer Date Recorded [place] [...] PM CDT Legal Sex Female 4:13 AM BROACH TROUBLE SHOOTER Gender Identity Female 03/02/2021 5:45 PM CDT Sexual Orientation Straight 02/28/2020 12 :51 AM CDT COVID-19 Exposure Response Date Recorded In the last 10 days, have yo u been in contact with someone who was confirmed or suspected to have Coronavirus/COVID-19? Yes 06/16/2022 12:32 PM BROACH TROUBLE SHOOTER documented as of this encounter Miscellaneous Notes * Telephone Encounter - Amalia Matute MA - 06/14/2022 9:30 AM CST [facility] Call Center Phone Message May [...] Not Applicable Thank you! [facility] CH TROUBLE SHOOTER documented in this encounter Plan of Treatment Upcoming Encounters Date Type Department Care Team (Late st Contact Info) Description 10/23/2024 9:30 AM CDT Office Visit [facility] Neurology Clinics - [address], [address] [place] [address] [place] [address] [place] [phone] Johnny Penn MD [address] [place] [address] 11/28/2024 7:45 AM CDT Virtual Visit [facility] Gastroenterology Clinic [address] 4th [place] [phone] Meredith Carrera PA-C [address] [place] [address] [phone] documented as of this encounter Visit Diagnoses Not on filedocumented in this encounter Additional Health Concerns Infection Onset Date Last Indicated Resolved Time COVID-19 06/09/2022 06/09/2022 06/30/2022 11:4 1 PM BROACH TROUBLE SHOOTER Rule Out COVID-19 11/10/2022 11/10/2022 11/11/2022 12:17 PM CDT Rule Out COVID-19 03/07/2023 03/07/2023 03/07/2023 1:20 PM CDT Rule Out COVID-19 12/26/2023 12/26/2023 12/26/2023 9:50 AM CDT Rule Out COVID-19 04/09/2024 04/09/2024 04/10/2024 6:48 PM CDT Assessment Noted Time PHQ-9 Depression Total Score: 3 05/13/20 22 8:49 PM CDT documented as of this encounter Care Teams Manager Economic Relationship Specialty Start Date End Date Marija Edgar APRN CNP PCP - General Nurse Practitioner 04/30/20 04/14/23 Esha Grimm PA-C [address] [place] [phone] PCP - General Family Medicine 05/04/23 Lita Oseguera Personal Advocate & Liaison (PAL) 02/28/20 03/27/23 Marija Edgar APRN ASSEMBLER UNIT Assigned PCP 06/08/20 04/29/23 Keisha Dotson MD [address] [place] [address] Assigned Neuroscience Provider 06/04/20 04/01/23 [facility] [address] [place] [address] Pharmacist Pharmacist 04/17/21 Rain Galaviz PA-C [address] [place] [address] [address] [facility] [place] [address] Physician Signaler Dermatology 04/28/21 Tavia Wyatt MD [address] [place] [address] [address] [facility] [phone] Dermatology 07/14/21 Erica Farrell APRN ASSEMBLER UNIT [address] [place], [place] 58[address] Nurse Practitioner Cardiovascular Disease 09/09/21 Rich Barrett MD [address] 640585 Physician Ophthalmology 01/21/22 Neil Kent MD [address] [place] [address] Dermatology 02/24/22 [place] [address] [facility] [address] [place] [address] Assigned Musculoskeletal Provider 03/20/22 08/13/22 Diana Desir, [facility] [address] [facility] [place] [address] Assigned MTM Pharmacist 04/07/22 Jelena David OD [address] [place] [address] Assigned Surgical Provider 05/08/22 10/08/22 Livan Sharif MD [address] [place] [address] [place] 9248[address] Cardiovascular Disease 05/14/22 Livan Sharif MD [address] [place] [address] [place] [address] Assigned Heart and Vascular Provider 06/12/22 07/23/22 Catherine Cm MD [address] [address] [place] 5875[address] Cardiovascular Disease 07/21/22 Valery Veronica PA-C [address] [place], [place] 417885 Physician Signaler Dermatology 07/21/22 Catherine Cm MD [address] [address] [place] [address] Assigned Heart and Vascular Provider 07/24/22 11/05/22 Johnny Murillo MD [address] [place] [address] Assigned Musculoskeletal Provider 08/14/22 10/08/22 Brea Quinn APRN ASSEMBLER UNIT [address] [place], [place] 007475 Nurse Practitioner Dermatology 09/21/22 Brea Quinn APRN ASSEMBLER UNIT [address] [facility] [place] [id number] Assigned Surgical Provider 10/09/22 05/01/24 [place] [address] [facility] [address] [place], [place] 455797 Assigned Musculoskeletal Provider 10/09/22 05/01/24 Livan Sharif MD [address], [facility] [address] [place] [address] Assigned Heart and Vascular Provider 11/06/22 11/12/22 Catherine Cm MD [address] [facility] [address] [place], [place] 7[address] Assigned Heart and Vascular Provider 11/13/22 05/27/23 Sydnie Martinez, VJ Personal Advocate & Liaison (PAL) Family Medicine 03/28/23 07/31/23 Alfonso Renteria MD [address] [facility] [address] [place], [place] 683436 Assigned Neuroscience Provider 04/02/23 Cheng Todd PA-C [address] [place] [address] [phone] Assigned PCP 04/30/23 07/15/23 Radha Lomeli APRN ASSEMBLER UNIT [address] [facility] [address] [place], [place] 7[address] Assigned Heart and Vascular Provider 05/28/23 Jelena David OD [address] [place] [address] Ophthalmology 06/15/23 Pao Joseph, VJ Personal Advocate & Liaison (PAL) Nurse 08/01/23 11/07/23 Esha Grimm PA-C [address] [place] [phone] Assigned PCP 07/16/23 Valery Veronica PA-C [address] [place] [address] 518145 Physician Signaler Dermatology 09/19/23 Rey Tay MD [address] [place] [address] 917615 Gastroenterology 09/20/23 Rocky Zepeda DO [address] [place] [address] [phone] Physician Gastroenterology 09/20/23 Philip Dumont MD [address] [place] [address] 178415 Physician Ophthalmology 09/22/23 Meredith Carrera PA-C [address] [place] [address] Assigned Gastroenterology Provider 11/01/23 Neil Kent MD [address] [place] [address] Dermatology 11/02/23 [place] [address] [place] [address] [address] Neurological Surgery 12/26/23 Audrey Waite PA-C [address] [place] [address] Physician Signaler Dermatology 02/28/24 Valery Veronica PA-C [address] [place] [address] Physician Signaler Dermatology 04/10/24 Herminia Hatch MD [facility] [place] [address] Assigned Rheumatology Provider 07/02/24 documented as of this encounter
--- OUTSIDE RECORDS SUMMARY | 2024-07-22 20:44 | XMS_ITS | Encounter Summary ---
Author Organization [facility] Address [address] [place] [address] Care Team Providers Care Master Plumber Name Role Phone Lita Oseguera Unavailable Unavailable Marija Edgar APRN WINDOW TREATMENT INSTALLER Primary Care Provider + Marija Edgar APRN WINDOW TREATMENT INSTALLER Unavailable [phone] Keisha Dotson MD Unavailable Diana Desir [facility] Unavailable Rain Galaviz PA-C Unavailable Tavia Wyatt MD Unavailable Erica Farrell APRN WINDOW TREATMENT INSTALLER Unavailable Rich Barrett MD Unavailable Neil Kent MD Unavailable Roney Story DPM Unavailable Diana Desir [facility] Unavailable [phone] Jelena David OD Unavailable Livan Sharif MD Unavailable Livan Sharif MD Unavailable Catherine Cm MD Unavailable + Valery Veronica PA-C Unavailable Catherine Cm MD Unavailable + Johnny Murillo MD Unavailable [phone] Brea Quinn DIRECTOR [employer] WINDOW TREATMENT INSTALLER Unavailable [phone] Brea Quinn DIRECTOR [employer] WINDOW TREATMENT INSTALLER Unavailable [phone] Jose Francisco Johnson MD Unavailable Livan Sharif MD Unavailable Catherine Cm MD Unavailable + Sydnie Martinez RN Unavailable Unavailable Alfonso Renteria MD Unavailable Esha Grimm PA-C Primary Care Provider Cheng Todd PA-C Unavailable [phone] Radha Lomeli DIRECTOR [employer] WINDOW TREATMENT INSTALLER Unavailable Jelena David OD Unavailable Pao Joseph RN Unavailable Unavailable Esha Grimm PA-C Unavailable [phone] Valery Veronica PA-C Unavailable [phone] Rey Tay MD Unavailable Rocky Zepeda DO Unavailable Philip Dumont MD Unavailable [phone] Meredith Carrera PA-C Unavailable Neil Kent MD Unavailable Juan Pablo Emmanuel MD Unavailable Audrey Waite PA-C Unavailable [phone] Valery Veronica PA-C Unavailable Herminia Hatch MD Unavailable Encounter Details Date Type Department Care Team (Late st Contact Info) Description 07/20/2022 MyC Medical Advice [address] [address] Pao Donahue RN Social History Tobacco Use [...] How often do you attend hoahaoism or shinto serv ices? Never 09/22/2021 Do [...] points; Administer PHQ-9 if positive 1 05/13/2022 [facility] - Occupational Stress Questionnaire Answer [...] in a residential (including now)? No 09/22/2021 [place] Depression Scale Answer Date Recorded [place] Depression Score 5 01/14/2021 Last EPDS Self Harm Result Not on file 01/14 Education Answer Date Recorded What is the highest level of school you have completed or the highest degree you have received? 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 SCOUT Gender Identity Female 03/02/2021 5:45 PM CDT Sexual Orientation Straight 02/28/2020 12 :51 AM CDT COVID-19 Exposure Response Date Recorded In the last 10 days, have yo u been in contact with someone who was confirmed or suspected to have Coronavirus/COVID-19? No / Unsure 07/23/2022 6:45 AM SCOUT documented as of this encounter Plan of Treatment Upcoming Encounters Date Type Department Care Team (Late st Contact Info) Description 10/23/2024 9:30 AM CDT Office Visit [facility] Neurology [address], [address] [place] [phone] [place] [address] 379637 Johnny Penn MD [address]597 [place], [place] 2699[address] 11/28/2024 7:45 AM CDT Virtual Visit [facility] Gastroenterology Clinic [address] [place] [address] Meredith Carrera PA-C [address] [place] [address]505 documented as of this encounter Visit Diagnoses [...] as of this encounter Care Teams Master Plumber Relationship Specialty Start Date End Date Marija Edgar APRN WINDOW TREATMENT INSTALLER PCP - General Nurse Practitioner 04/30/20 04/14/23 Esha Grimm PA-C [address] [place] [phone] PCP - General Family Medicine 05/04/23 Lita Oseguera Personal Advocate & Liaison (PAL) 02/28/20 03/27/23 Marija Edgar APRN WINDOW TREATMENT INSTALLER Assigned PCP 06/08/20 04/29/23 Keisha Dotson MD [address] [place], [place] 340665 Assigned Neuroscience Provider 06/04/20 04/01/23 Diana Desir, [facility] 30[address] [place] [address] Pharmacist Pharmacist 04/17/21 Rain Galaviz PA-C [address] [facility] [place] [address] Physician Golf Caddy Dermatology 04/28/21 Tavia Wyatt MD [address] [place] [address] [address] [place] [address] Dermatology 07/14/21 Erica Farrell APRN WINDOW TREATMENT INSTALLER [address] [place] [address] Nurse Practitioner Cardiovascular Disease 09/09/21 Rich Barrett MD [address] [facility] [address] [place], [place] [address] Physician Ophthalmology 01/21/22 Neil Kent MD 500 [place], [place] 131915 Dermatology 02/24/22 Roney Story DPM [address] [facility] [address] [place], [place] 2788[address] Assigned Musculoskeletal Provider 03/20/22 08/13/22 Diana Desir, [facility] [address] [place] [address] Assigned MTM Pharmacist 04/07/22 Jelena David OD [address] [facility] [place] [address] Assigned Surgical Provider 05/08/22 10/08/22 Livan Sharif MD [address] [place] [address] Cardiovascular Disease 05/14/22 Livan Sharif MD [address] [place], [facility] [address] [place] [address] Assigned Heart and Vascular Provider 06/12/22 07/23/22 Catherine Cm MD [address] [facility]00 [place] [address] Cardiovascular Disease 07/21/22 Valery Veronica, PA-C [address] [place] [address] 062785 Physician Golf Caddy Dermatology 07/21/22 Catherine Cm MD [address] [facility] [place] [place] [address] Assigned Heart and Vascular Provider 07/24/22 11/05/22 Johnny Murillo MD [facility] [address] 713714 Assigned Musculoskeletal Provider 08/14/22 10/08/22 Brea Quinn APRN WINDOW TREATMENT INSTALLER [address] [place] [address] 526425 Nurse Practitioner Dermatology 09/21/22 Brea Quinn APRN WINDOW TREATMENT INSTALLER [address] [place] [address] [place] 533322 Assigned Surgical Provider 10/09/22 05/01/24 [place] [address] [place] [address] 598277 Assigned Musculoskeletal Provider 10/09/22 05/01/24 Livan Sharif MD [address], [facility] [address] [place] 5839[address] Assigned Heart and Vascular Provider 11/06/22 11/12/22 Catherine Cm MD [address] [place], [place] 6[address] Assigned Heart and Vascular Provider 11/13/22 05/27/23 Sydnie Martinez, RN Personal Advocate & Liaison (PAL) Family Medicine 03/28/23 07/31/23 Alfonso Renteria MD [address] [facility] 200 [place] [address] Assigned Neuroscience Provider 04/02/23 Cheng Todd PA-C [address] [place] [address] [phone] Assigned PCP 04/30/23 07/15/23 Radha Lomeli APRN WINDOW TREATMENT INSTALLER [address] [place] [address] Assigned Heart and Vascular Provider 05/28/23 Jelena David OD [address] [facility] [place] [address] Ophthalmology 06/15/23 Pao Joseph, VJ Personal Advocate & Liaison (PAL) Nurse 08/01/23 11/07/23 Esha Grimm PAUcheC [address] [place] [phone] Assigned PCP 07/16/23 Valery Veronica PA-C 909 [place], [place] 048985 Physician Golf Caddy Dermatology 09/19/23 Rey Tay MD [address] [place] [address] MD Gastroenterology 09/20/23 Rocky Zepeda DO 500 [place], [place] 936635 Physician Gastroenterology 09/20/23 Philip Dumont MD [address] [place] [address] 876915 Physician Ophthalmology 09/22/23 Meredith Carrera PA-C [address] [place], [place] 392045 Assigned Gastroenterology Provider 11/01/23 Neil Kent MD [address] [place] [address] Dermatology 11/02/23 [place] [address] [place] [address] Neurological Surgery 12/26/23 Audrey Waite PA-C 500 [place] [address] Physician Golf Caddy Dermatology 02/28/24 Valery Veronica PA-C [address] [place] [address] Physician Golf Caddy Dermatology 04/10/24 Herminia Hatch MD [address] [place] [address] Assigned Rheumatology Provider 07/02/24 documented as of this encounter
--- OUTSIDE RECORDS SUMMARY | 2024-07-22 20:44 | XMS_ITS | Encounter Summary ---
Author Organization [facility] Address [address] [place] [address] Care Team Providers Care Access Spec Name Role Phone Lita Oseguera Unavailable Unavailable Marija Edgar APRN FIRST ASSISTANT MANAGER Primary Care Provider + Marija Edgar APRN FIRST ASSISTANT MANAGER Unavailable [phone] Keisha Dotson MD Unavailable Diana Desir [facility] Unavailable [phone] Rain Galaviz PA-C Unavailable Tavia Wyatt MD Unavailable Erica Farrell APRN FIRST ASSISTANT MANAGER Unavailable Rich Barrett MD Unavailable [phone] Neil Kent MD Unavailable Diana Desir [facility] Unavailable Jelena David OD Unavailable Livan Sharif MD Unavailable Catherine Cm MD Unavailable + Valery Veronica PA-C Unavailable Catherine Cm MD Unavailable + Johnny Murillo MD Unavailable [phone] Brea Quinn BLOWING ENGINEER FIRST ASSISTANT MANAGER Unavailable [phone] Brea Quinn BLOWING ENGINEER FIRST ASSISTANT MANAGER Unavailable [phone] Jose Francisco Johnson MD Unavailable Livan Sharif MD Unavailable Catherine Cm MD Unavailable + Sydnie Martinez RN Unavailable Unavailable Alfonso Renteria MD Unavailable Esha Grimm PA-C Primary Care Provider Cheng Todd PA-C Unavailable [phone] Radha Lomeli BLOWING ENGINEER FIRST ASSISTANT MANAGER Unavailable Jelena David OD Unavailable Pao Joseph RN Unavailable Unavailable Esha Grimm PA-C Unavailable [phone] Valery Veronica PA-C Unavailable Rey Tay MD Unavailable Rocky Zepeda DO Unavailable Philip Dumont MD Unavailable Meredith Carrera PA-C Unavailable Neil Knet MD Unavailable Juan Pablo Emmanuel MD Unavailable Audrey Waite PA-C Unavailable Valery Veronica PA-C Unavailable Herminia Hatch MD Unavailable Reason for Visit * Reason Onset Date Comments Call Back 09/21/2022 Change of provid er request Encounter Details Date Type Department Care Team (Late st Contact Info) Description 09/21/2022 Telephone [facility] [address], [address] [place] [address] Keisha Dotson MD [address] [place] [address] Call Back (Change of provider request) Social [...] How often do you attend baptist or zoroastrian serv ices? Never 09/22/2021 Do [...] Answer Date Recorded PHQ-2 Score 2 08/27/2022 [facility] - Occupational Stress Questionnaire Answer [...] in a usp (including now)? No 09/22/2021 [place] Depression Scale Answer Date Recorded [place] Depression Score 5 01/14/2021 Last EPDS Self Harm Result Not on file 01/14 Education Answer Date Recorded What is the highest level of school you have completed or the highest degree you have received? 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 ADMINISTRATIVE ASSOCIATE Gender Identity Female 03/02/2021 5:45 PM [...] Aleyda Guan - 09/21/2022 10:47 AM CDT [facility] Call Center Phone Message May a detailed message be left on voicemail: yes Reason for Call: Other: Change of provider request, Pt would like to be seen with another provider. Please call Pt back at [phone] to scheduled or advise. Action Taken: Message routed to: [facility] Neurology Travel Screening: Not Applicable documented in this encounter Plan of Treatment Upcoming Encounters Date Type Department Care Team (Late st Contact Info) Description 10/23/2024 9:30 AM CDT Office Visit [facility] Neurology Clinics - [address], [address] [place] [address] [place] [address] [place] [address] Johnny Penn MD [address] [facility] [address] [place] [address] 11/28/2024 7:45 AM CDT Virtual Visit [facility] Gastroenterology Clinic [address] 4th [place] [phone] Meredith Carrera PA-C [address] [place] [address] documented as of this encounter Visit Diagnoses [...] Depression Total Score: 5 08/27/19 1:14 PM ADMINISTRATIVE ASSOCIATE documented as of this encounter Care Teams Access Spec Relationship Specialty Start Date End Date Marija Edgar APRN FIRST ASSISTANT MANAGER PCP - General Nurse Practitioner 04/30/20 04/14/23 Esha Grimm PA-C [address] [place] [phone] PCP - General Family Medicine 05/04/23 Lita Oseguera Personal Advocate & Liaison (PAL) 02/28/20 03/27/23 Marija Edgar APRN FIRST ASSISTANT MANAGER Assigned PCP 06/08/20 04/29/23 Keisha Dotson MD [address] [place] [address] Assigned Neuroscience Provider 06/04/20 04/01/23 Diana Desir [facility] [address] [place] [address] Pharmacist Pharmacist 04/17/21 Rain Galaviz PA-C [address] [place] [address] [address] [place] [address] Physician Water Safety Instructor Dermatology 04/28/21 Tavia Wyatt MD [address] [place] [address] [address] [place] [address] Dermatology 07/14/21 Erica Farrell APRN FIRST ASSISTANT MANAGER [address] [place] [address] Nurse Practitioner Cardiovascular Disease 09/09/21 Rich Barrett MD [address] 909[address] Physician Ophthalmology 01/21/22 Neil Kent MD 500 [place], [place] 408935 Dermatology 02/24/22 Diana Desir, [facility] [address] [place] [address] Assigned MTM Pharmacist 04/07/22 Jelena David OD [address] [facility] [place] [address] Assigned Surgical Provider 05/08/22 10/08/22 Livan Sharif MD [address] [place], [place] [address] Cardiovascular Disease 05/14/22 Catherine Cm MD [address] [place] [address] [place] [address] Cardiovascular Disease 07/21/22 Valery Veronica, PA-C [address] [place] [address] 845325 Physician Water Safety Instructor Dermatology 07/21/22 Catherine Cm MD [address] [facility] [address] [place] [address] [place] [address] Assigned Heart and Vascular Provider 07/24/22 11/05/22 Johnny Murillo MD [address] [place] [address] 063504 Assigned Musculoskeletal Provider 08/14/22 10/08/22 Brea Quinn APRN FIRST ASSISTANT MANAGER [address] [place] [address] Nurse Practitioner Dermatology 09/21/22 Brea Quinn APRN FIRST ASSISTANT MANAGER [address] [place] [address] [place] [address] Assigned Surgical Provider 10/09/22 05/01/24 [place] [address] [place] [address] Assigned Musculoskeletal Provider 10/09/22 05/01/24 Livan Sharif MD [address], [facility] [address] [place] [address] Assigned Heart and Vascular Provider 11/06/22 11/12/22 Catherine Cm MD [address] [facility] [address] [place] [address] Assigned Heart and Vascular Provider 11/13/22 05/27/23 Sydnie Martinez RN Personal Advocate & Liaison (PAL) Family Medicine 03/28/23 07/31/23 Alfonso Renteria MD 5775 [facility] 200 [place] [address] Assigned Neuroscience Provider 04/02/23 Cheng Todd PA-C [address] [place] [address] Assigned PCP 04/30/23 07/15/23 Radha Lomeli, BLOWING ENGINEER FIRST ASSISTANT MANAGER [address] [place] [address] Assigned Heart and Vascular Provider 05/28/23 Jelena David OD [address] [facility] [place] [address] Ophthalmology 06/15/23 Pao Joseph RN Personal Advocate & Liaison (PAL) Nurse 08/01/23 11/07/23 Esha Grimm PA-C [address] [place] [address] Assigned PCP 07/16/23 Valery Veronica PA-C [address] [place] [address] Physician Water Safety Instructor Dermatology 09/19/23 Rey Tay MD [address] [place] [address] MD Gastroenterology 09/20/23 Rocky Zepeda DO [address] [place] [address] Physician Gastroenterology 09/20/23 Philip Dumont MD [address] [place] [address] Physician Ophthalmology 09/22/23 Meredith Carrera PA-C [address] [place] [address] Assigned Gastroenterology Provider 11/01/23 Neil Kent MD [address] 146470 Dermatology 11/02/23 [place] [address] [place] [address] Neurological Surgery 12/26/23 Audrey Waite PA-C [address] [place] [address] Physician Water Safety Instructor Dermatology 02/28/24 Valery Veronica PA-C [address] [place] [address] Physician Water Safety Instructor Dermatology 04/10/24 Herminia Hatch MD [address] [place] [address] [id number] Assigned Rheumatology Provider 07/02/24 documented as of this encounter
--- OUTSIDE RECORDS SUMMARY | 2024-07-22 20:45 | XMS_ITS | Encounter Summary ---
Author Organization [facility] Address [address] [place] [address] Care Team Providers Care Telephone Installer Name Role Phone Lita Oseguera Unavailable Unavailable Marija Edgar APRN BYPRODUCTS OPERATOR Primary Care Provider + Marija Edgar APRN BYPRODUCTS OPERATOR Unavailable Mynor Broussard MD Unavailable [phone] Keisha Dotson MD Unavailable Galo Burrell MD Unavailable Unavailable Diana Desir [facility] Unavailable Rain Galaviz PA-C Unavailable Summer Lara MD Unavailable [phone] Tavia Wyatt MD Unavailable Johnny Murillo MD Unavailable Erica Farrell APRN BYPRODUCTS OPERATOR Unavailable Teresita Bean [facility] Unavailable Tavia Wyatt MD Unavailable Diana Desir [facility] Unavailable [phone] Rich Barrett MD Unavailable [phone] Neil Kent MD Unavailable Roney Story DPM Unavailable Erica Farrell GUM REMOVER BYPRODUCTS OPERATOR Unavailable Thang Diana Stanislav [facility] Unavailable Jelena David OD Unavailable Galo Burrell MD Unavailable Unavailable Livan Sharif MD Unavailable + Livan Sharif MD Unavailable + Catherine Cm MD Unavailable + Valery Veronica PA-C Unavailable [phone] Catherine Cm MD Unavailable + Johnny Murillo MD Unavailable [phone] Brea Quinn GUM REMOVER BYPRODUCTS OPERATOR Unavailable [phone] Brea Quinn GUM REMOVER BYPRODUCTS OPERATOR Unavailable [phone] Jose Francisco Johnson MD Unavailable Livan Sharif MD Unavailable + IsCatherine hobbs MD Unavailable + Sydnie Martinez RN Unavailable Unavailable Alfonso Renteria MD Unavailable Esha rGimm-C Primary Care Provider Cheng Todd PA-C Unavailable Radha Lomeli GUM REMOVER BYPRODUCTS OPERATOR Unavailable [phone] Jelena David OD Unavailable Pao Joseph RN Unavailable Unavailable Esha Grimm-C Unavailable [phone] JeremíasValery damon PA-C Unavailable [phone] Rey Tay MD Unavailable Rocky Zepeda DO Unavailable Philip Dumont MD Unavailable [phone] Meredith CarreraC Unavailable [phone] Neil Kent MD Unavailable Juan Pablo Emmanuel MD Unavailable [phone] Audrey WaiteC Unavailable [phone] Valery Veronica PA-C Unavailable [phone] Herminia Hatch MD Unavailable Encounter Details Date [...] do you attend [facility] or [employer]? More than 4 times [...] Answer Date Recorded PHQ-2 Score 0 04/02/2021 [facility] of Occupat [...] a long term (including now)? No 08/11/2020 [place] Depression Scale Answer Date Recorded [place] Depression Score 5 01/14/2021 Last EPDS Self Harm Result Not on file 01/14 Education Answer Date Recorded What is the highest level of school you have completed or the highest degree you have received? 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 BASEBALL GLOVE SHAPER Gender Identity Female 03/02/2021 5:45 PM CDT Sexual Orientation Straight 02/28/2020 12 :51 AM CDT COVID-19 Exposure Response Date Recorded In the last month, have you been in contact with someone who was confirmed or suspected to have Coronavirus / COVID-19? No / Unsure 09/02/2021 12:26 PM BASEBALL GLOVE SHAPER documented as of this encounter Plan of Treatment Upcoming Encounters Date Type Department Care Team (Late st Contact Info) Description 10/23/2024 9:30 AM CDT Office Visit [facility] Neurology [address], [address] [place] [address] [place] [address] [place], [place] [address] Johnny Penn MD [address] [facility] [place] [id number] 11/28/2024 7:45 AM CDT Virtual Visit [facility] Gastroenterology Clinic [address] 4th [place] [address] Meredith Carrera PAUcheC [address] [place] [address] documented as of this encounter Visit Diagnoses Not on filedocumented in this encounter Additional Health Concerns Infection Onset Date Last Indicated Resolved Time Rule Out COVID-19 12/18/2021 12/18/2021 12/19/2021 11:34 AM CDT Rule Out COVID-19 02/24/2022 02/24/2022 02/25/2022 1:08 PM CDT Rule Out COVID-19 04/26/2022 04/26/2022 04/26/2022 6:47 AM CDT Rule Out COVID-19 05/17/2022 05/17/2022 05/17/2022 10:20 PM BASEBALL GLOVE SHAPER Rule Out COVID-19 06/09/2022 06/09/2022 06/09/2022 9:35 AM BASEBALL GLOVE SHAPER COVID-19 06/09/2022 06/09/2022 06/30/2022 11:4 1 PM BASEBALL GLOVE SHAPER Rule Out COVID-19 11/10/2022 11/10/2022 11/11/2022 12:17 PM CDT Rule Out COVID-19 03/07/2023 03/07/2023 03/07/2023 1:20 PM CDT Rule Out COVID-19 12/26/2023 12/26/2023 12/26/2023 9:50 AM CDT Rule Out COVID-19 04/09/2024 04/09/2024 04/10/2024 6:48 PM CDT Assessment Noted Time PHQ-9 Depression Total Score: 2 04/02/20 21 10:19 AM CDT documented as of this encounter Care Teams Telephone Installer Relationship Specialty Start Date End Date Marija Edgar APRN CNP PCP - General Nurse Practitioner 04/30/20 04/14/23 Esha Grimm PA-C [address] [place] [phone] PCP - General Family Medicine 05/04/23 Lita Oseguera Personal Advocate & Liaison (PAL) 02/28/20 03/27/23 Marija Edgar APRN CNP Assigned PCP 06/08/20 04/29/23 Mynor Broussard MD [address] [address] Assigned Surgical Provider 06/01/20 11/28/21 Keisha Dotson MD 9[address] [place], [place] 6[address] Assigned Neuroscience Provider 06/04/20 04/01/23 Galo Burrell MD Assigned Heart and Vascular Provider 10/05/20 04/02/22 Diana Desir, [facility] [address] [place], [place] [address] Pharmacist Pharmacist 04/17/21 Rain Galaviz PA-C [address] [place] [address] [address] [place] [address] Physician Baseball Glove Shaper Dermatology 04/28/21 Summer Lara MD [address], [place] 34[address] Assigned OBGYN Provider 05/31/21 2 Tavia Wyatt MD [address], [place] 3[address] Dermatology 07/14/21 Johnny Murillo MD [address] [place] [address] Assigned Musculoskeletal Provider 08/30/21 03/17/22 Erica Farrell APRN BYPRODUCTS OPERATOR [address] [facility] [address] [place] [address] Nurse Practitioner Cardiovascular Disease 09/09/21 Teresita Bean, [facility] [address] [place] [phone] Pharmacist Pharmacist 09/24/21 09/29/21 Tavia Wyatt MD [address] [place] [address] Assigned Surgical Provider 11/29/21 05/07/22 [facility] [address] [place], [place] [address] Assigned MTM Pharmacist 01/02/22 Rich Barrett MD [address] [facility] [address] [place], [place] [phone] Physician Ophthalmology 01/21/22 Neil Kent MD 500 [place], [place] [phone] Dermatology 02/24/22 Roney Story DPM [address] [facility] [address] [place], [place] 1578[address] Assigned Musculoskeletal Provider 03/20/22 08/13/22 Erica Farrell APRN BYPRODUCTS OPERATOR 1700 [place] [address] Assigned Heart and Vascular Provider 04/03/22 04/16/22 Diana Desir, [facility] [address] [place] [address] Assigned MTM Pharmacist 04/07/22 Jelena David OD [address] [facility] [place] [address] Assigned Surgical Provider 05/08/22 10/08/22 Galo Burrell MD Assigned Heart and Vascular Provider 04/17/22 06/11/22 Livan Sharif MD [address] [place] [address] Cardiovascular Disease 05/14/22 Livan Sharif MD [address] [place] [address] [place] [address] Assigned Heart and Vascular Provider 06/12/22 07/23/22 Catherine Cm MD [address] [place] [address] Cardiovascular Disease 07/21/22 Valery Veronica PA-C 909 [place] [address] Physician Baseball Glove Shaper Dermatology 07/21/22 Catherine Cm MD 6[address] [facility] S [facility] [address] [place] [address] Assigned Heart and Vascular Provider 07/24/22 11/05/22 Johnny Murillo MD [address] [place] [address] Assigned Musculoskeletal Provider 08/14/22 10/08/22 Brea Quinn APRN BYPRODUCTS OPERATOR [address] [place], [place] [address]45 Nurse Practitioner Dermatology 09/21/22 Brea Quinn APRN BYPRODUCTS OPERATOR 6401 [facility] [place] [address] Assigned Surgical Provider 10/09/22 05/01/24 [place] [address] [address] Assigned Musculoskeletal Provider 10/09/22 05/01/24 Livan Sharif MD [address], [facility] [address] [place] [address] Assigned Heart and Vascular Provider 11/06/22 11/12/22 Catherine Cm MD [address] [facility] S [facility] [address] [place] [address] Assigned Heart and Vascular Provider 11/13/22 05/27/23 Sydnie Martinez RN Personal Advocate & Liaison (PAL) Family Medicine 03/28/23 07/31/23 Alfonso Renteria MD [address] [facility] [address] [place] [address] Assigned Neuroscience Provider 04/02/23 Cheng Todd PA-C [address] [place] [address] Assigned PCP 04/30/23 07/15/23 Radha Lomeli, ARLENE BYPRODUCTS OPERATOR 6405 [facility] [address] [place] [address] Assigned Heart and Vascular Provider 05/28/23 Jelena David OD [address] [facility] [place] [address] Ophthalmology 06/15/23 Pao Joseph, V[place] Personal Advocate & Liaison (PAL) Nurse 08/01/23 11/07/23 Esha Grimm PA-C [address] [place] [address] Assigned PCP 07/16/23 Valery Veronica PA-C [address] [place] [address] Physician Baseball Glove Shaper Dermatology 09/19/23 Rey Tay MD [address] [place] [address] 587735 Gastroenterology 09/20/23 Rocky Zepeda DO [address] [place] [address] Physician Gastroenterology 09/20/23 Philip Dumont MD 516 [place] [address] Physician Ophthalmology 09/22/23 Meredith Carrera PA-C 909 [place] [address] Assigned Gastroenterology Provider 11/01/23 Neil Kent MD [address] [address] Dermatology 11/02/23 [place] [address] [address] Neurological Surgery 12/26/23 Audrey Waite PA-C [address] [place] [address] Physician Baseball Glove Shaper Dermatology 02/28/24 Valery Veronica PA-C [address]188 [address], [place] [address] Physician Baseball Glove Shaper Dermatology 04/10/24 Herminia Hatch MD [facility]5 [place], [place] [address] Assigned Rheumatology Provider 07/02/24 documented as of this encounter
--- OUTSIDE RECORDS SUMMARY | 2024-07-22 20:45 | XMS_ITS | Encounter Summary ---
Author Organization [facility] Address [address] [place] [address] Care Team Providers Care Music Director Name Role Phone Lita Oseguera Unavailable Unavailable Marija Edgar APRN CYTOTECHNOLOGIST Primary Care Provider + Marija Edgar APRN CYTOTECHNOLOGIST Unavailable Mynor Broussard MD Unavailable [phone] Keisha Dotson MD Unavailable [phone] Galo Burrell MD Unavailable Unavailable Diana Desir [facility] Unavailable [phone] Rain Galaviz PA-C Unavailable Summer Lara MD Unavailable [phone] Tavia Wyatt MD Unavailable Johnny Murillo MD Unavailable Erica Farrell APRN CYTOTECHNOLOGIST Unavailable Teresita Bean [facility] Unavailable Tavia Wyatt MD Unavailable Diana Desir [facility] Unavailable Rich Barrett MD Unavailable [phone] Neil Kent MD Unavailable Roney Story DPM Unavailable Erica Farrell TELEVISION WRITER CYTOTECHNOLOGIST Unavailable Thang Diaan Stanislav [facility] Unavailable Jelena David OD Unavailable [phone] Galo Burrell MD Unavailable Unavailable Livan Sharif MD Unavailable + Livan Sharif MD Unavailable + Catherine Cm MD Unavailable + Valery Veronica PA-C Unavailable [phone] Catherine Cm MD Unavailable + Johnny Murillo MD Unavailable [phone] Brea Quinn TELEVISION WRITER CYTOTECHNOLOGIST Unavailable [phone] Brea Quinn TELEVISION WRITER CYTOTECHNOLOGIST Unavailable [phone] Jose Francisco Johnson MD Unavailable Livan Sharif MD Unavailable + IsCatherine hobbs MD Unavailable + Sydnie Martinez RN Unavailable Unavailable Alfonso Renteria MD Unavailable Esha Grimm-C Primary Care Provider Cheng Todd PA-C Unavailable Radha Lomeli TELEVISION WRITER CYTOTECHNOLOGIST Unavailable [phone] Jelena David OD Unavailable Pao Joseph RN Unavailable Unavailable Esha Grimm-C Unavailable [phone] JeremíasValery damon PA-C Unavailable [phone] Rey Tay MD Unavailable Rocky Zepeda DO Unavailable Philip Dumont MD Unavailable [phone] Meredith CarreraC Unavailable [phone] Neil Kent MD Unavailable Juan Pablo Emmanuel MD Unavailable Audrey WaiteC Unavailable [phone] Valery VeronicaC Unavailable [phone] Herminia Hatch MD Unavailable Encounter Details Date Type Department Care Team (Late st Contact Info) Description 09/24/2021 MyC Medical Advice [facility] [address] [facility] [address] [place] [address] [facility] [address] [place] [address] Social History Tobacco Use Types Packs/Day [...] How often do you attend caodaism or mormonism serv ices? Never 09/22/2021 Do [...] Answer Date Recorded PHQ-2 Score 2 09/22/2021 [facility] [place] of Occupat ional Health - Occupational Stress [...] in a intermediate (including now)? No 09/22/2021 [place] Depression Scale Answer Date Recorded [place] Depression Score 5 01/14/2021 Last EPDS Self Harm Result Not on file 01/14 Education Answer Date Recorded What is the highest level of school you have completed or the highest degree you have received? 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 SECOND RIDE FARE COLLECTOR Gender Identity Female 03/02/2021 5:45 PM CDT [...] CDT Office Visit [facility] Neurology Clinics [address], [address] [place] [address] [place] [address] [address] [place] [address] Johnny Penn MD [address] [place] [address] 11/28/2024 7:45 AM CDT Virtual Visit [facility] Gastroenterology Clinic Ida [address] [facility] [address] 4th [place] [phone] Meredith Carrera PA-C [address] [place] [address] documented as of this encounter Visit Diagnoses Not on filedocumented in this encounter Additional Health Concerns Infection Onset Date Last Indicated Resolved Time Rule Out COVID-19 12/18/2021 12/18/2021 12/19/2021 11:34 AM CDT Rule Out COVID-19 02/24/2022 02/24/2022 02/25/2022 1:08 PM CDT Rule Out COVID-19 04/26/2022 04/26/2022 04/26/2022 6:47 AM CDT Rule Out COVID-19 05/17/2022 05/17/2022 05/17/2022 10:20 PM SECOND RIDE FARE COLLECTOR Rule Out COVID-19 06/09/2022 06/09/2022 06/09/2022 9:35 AM SECOND RIDE FARE COLLECTOR COVID-19 06/09/2022 06/09/2022 06/30/2022 11:4 1 PM SECOND RIDE FARE COLLECTOR Rule Out COVID-19 11/10/2022 11/10/2022 11/11/2022 12:17 PM CDT Rule Out COVID-19 03/07/2023 03/07/2023 03/07/2023 1:20 PM CDT Rule Out COVID-19 12/26/2023 12/26/2023 12/26/2023 9:50 AM CDT Rule Out COVID-19 04/09/2024 04/09/2024 04/10/2024 6:48 PM CDT Assessment Noted Time PHQ-9 Depression Total Score: 2 04/02/20 21 10:19 AM CDT documented as of this encounter Care Teams Music Director Relationship Specialty Start Date End Date Marija Edgar APRN CYTOTECHNOLOGIST PCP - General Nurse Practitioner 04/30/20 04/14/23 Esha Grimm PA-C [address] [place] [phone] PCP - General Family Medicine 05/04/23 Lita Oseguera Personal Advocate & Liaison (PAL) 02/28/20 03/27/23 Marija Edgar APRN CYTOTECHNOLOGIST Assigned PCP 06/08/20 04/29/23 Mynor Broussard MD [address] [facility] 500 [place] [address] Assigned Surgical Provider 06/01/20 11/28/21 Keisha Dotson MD 909 [place] [address] Assigned Neuroscience Provider 06/04/20 04/01/23 Galo Burrell MD Assigned Heart and Vascular Provider 10/05/20 04/02/22 Diana Desir, [facility] [address] [place] [address] Pharmacist Pharmacist 04/17/21 Rain Galaviz PA-C [address] [facility] [address] [place] [address] Physician Echo Tech Dermatology 04/28/21 Summer Lara MD [address] [place] [address] Assigned OBGYN Provider 05/31/21 2 Tavia Wyatt MD [address] [place], [place] [address] Dermatology 07/14/21 Johnny Murillo MD [address] [place] [address] Assigned Musculoskeletal Provider 08/30/21 03/17/22 Erica Farrell APRN CYTOTECHNOLOGIST [address] [place] [address] Nurse Practitioner Cardiovascular Disease 09/09/21 Teresita Bean, [facility] [address] [place] [id number] Pharmacist Pharmacist 09/24/21 09/29/21 Tavia Wyatt MD [address] [place] [address] Assigned Surgical Provider 11/29/21 05/07/22 Diana Desir, [facility] [address] [facility] [place] [address] Assigned MTM Pharmacist 01/02/22 Rcih Barrett MD [address] [facility] 9[address] [place], [place] [address] Physician Ophthalmology 01/21/22 Neil Kent MD 500 [place] [address] Dermatology 02/24/22 Roney Story DPM [address] [facility] [address] [place], [place] 97[address] Assigned Musculoskeletal Provider 03/20/22 08/13/22 Erica Farrell APRN CYTOTECHNOLOGIST 1700 [place] [address] Assigned Heart and Vascular Provider 04/03/22 04/16/22 Diana Desir, [facility] 30[address] [place], [place] [address]296 Assigned MTM Pharmacist 04/07/22 [place] [address] [facility] [place] [address] Assigned Surgical Provider 05/08/22 10/08/22 Galo Burrell MD Assigned Heart and Vascular Provider 04/17/22 06/11/22 Livan Sharif MD [address] [facility]00 [place] [address] Cardiovascular Disease 05/14/22 Livan Sharif MD [address] [facility]00 [place] [address] Assigned Heart and Vascular Provider 06/12/22 07/23/22 Catherine Cm MD [address] [facility]00 [place], [place] [address] Cardiovascular Disease 07/21/22 Valery Veronica, PA-C [address] [place] [address] Physician Echo Tech Dermatology 07/21/22 Catherine Cm MD [address] [place] [address] [place] [address] Assigned Heart and Vascular Provider 07/24/22 11/05/22 Johnny Murillo MD [address] [address] Assigned Musculoskeletal Provider 08/14/22 10/08/22 Brea Quinn APRN CYTOTECHNOLOGIST [address] [place] [address] 703205 Nurse Practitioner Dermatology 09/21/22 Brea Quinn APRN CYTOTECHNOLOGIST 6401 [place], [place] 415492 Assigned Surgical Provider 10/09/22 05/01/24 [place] [address] [address] Assigned Musculoskeletal Provider 10/09/22 05/01/24 Livan Sharif MD [address] [facility]00 [place] [address] Assigned Heart and Vascular Provider 11/06/22 11/12/22 Catherine Cm MD [address] [facility]00 [place] [address] Assigned Heart and Vascular Provider 11/13/22 05/27/23 Sydnie Martinez RN Personal Advocate & Liaison (PAL) Family Medicine 03/28/23 07/31/23 Alfonso Renteria MD [address] [facility] [address] 200 [place] [address] Assigned Neuroscience Provider 04/02/23 Cheng Todd PA-C [address] [place] [address] Assigned PCP 04/30/23 07/15/23 Radha Lomeli APRN CYTOTECHNOLOGIST 6[address] [facility] [address] [place] [address] Assigned Heart and Vascular Provider 05/28/23 Jelena David OD [address] [facility] [place] [address] Ophthalmology 06/15/23 Pao Joseph, VJ Personal Advocate & Liaison (PAL) Nurse 08/01/23 11/07/23 Esha Grimm PA-C [address] [place] [address] Assigned PCP 07/16/23 Valery Veronica PA-C 9 [place], [place] [address] Physician Echo Tech Dermatology 09/19/23 Rey Tay MD 909 [place] [address] Gastroenterology 09/20/23 Rocky Zepeda DO 500 [place] [address] Physician Gastroenterology 09/20/23 Philip Dumont MD 516 [place] [address] Physician Ophthalmology 09/22/23 Meredith Carrera PA-C 909 [place] [address] Assigned Gastroenterology Provider 11/01/23 Neil Kent MD [address] [address] MD Dermatology 11/02/23 [place] [address] [address] Neurological Surgery 12/26/23 Audrey Waite PA-C 500 [place] [address] Physician Echo Tech Dermatology 02/28/24 Valery Veronica PA-C [address] [place] [address] Physician Echo Tech Dermatology 04/10/24 Herminia Hatch MD [facility]5 [place], [place] [address] Assigned Rheumatology Provider 07/02/24 documented as of this encounter
--- OUTSIDE RECORDS SUMMARY | 2024-07-22 20:45 | XMS_ITS | Encounter Summary ---
Author Organization [facility] Address [address] [place] [address] Care Team Providers Care Certified Performance Technologist Name Role Phone Lita Oseguera Unavailable Unavailable Marija Edgar APRN WEB CONTENT MANAGER Primary Care Provider + Marija Edgar APRN WEB CONTENT MANAGER Unavailable [phone] Keisha Dotson MD Unavailable [phone] Galo Burrell MD Unavailable Unavailable Diana Desir [facility] Unavailable Rain Galaviz PA-C Unavailable Summer Lara MD Unavailable [phone] Tavia Wyatt MD Unavailable Johnny Murillo MD Unavailable Erica Farrell APRN WEB CONTENT MANAGER Unavailable Tavia Wyatt MD Unavailable Diana Desir [facility] Unavailable Rich Barrett MD Unavailable Neil [place] MD Unavailable Roney Story DPM Unavailable [phone] Erica Farrell APRN WEB CONTENT MANAGER Unavailable + Diana Desir [facility] Unavailable Jelena David OD Unavailable Galo Burrell MD Unavailable Unavailable HoLivan MD Unavailable Livan Sharif MD Unavailable IskoCatherine boothe MD Unavailable + Valery Veronica PA-C Unavailable [phone] Catherine Cm MD Unavailable + Johnny Murillo MD Unavailable [phone] Brea Quinn ARTIST CONSULTANT WEB CONTENT MANAGER Unavailable [phone] Brea Quinn ARTIST CONSULTANT WEB CONTENT MANAGER Unavailable [phone] Jose Francisco Johnson MD Unavailable Livan Sharif MD Unavailable + IsCatherine boothe MD Unavailable + Sydnie Martinez RN Unavailable Unavailable Alfonso Renteria MD Unavailable Esha Grimm PA-C Primary Care Provider Cheng Todd PA-C Unavailable Radha Lomeli ARTIST CONSULTANT WEB CONTENT MANAGER Unavailable [phone] Jelena David OD Unavailable Pao Joseph RN Unavailable Unavailable Esha Grimm PA-C Unavailable [phone] Valery Veronica PA-C Unavailable [phone] Rey Tay MD Unavailable Rocky Zepeda DO Unavailable Philip Dumont MD Unavailable [phone] Meredith Carrera PA-C Unavailable Neil Kent MD Unavailable Juan Pablo Emmanuel MD Unavailable Audrey Waite PA-C Unavailable [phone] Valery Veronica PA-C Unavailable Herminia Hatch MD Unavailable Encounter Details Date Type Department Care Team (Late st Contact Info) Description 12/03/2021 MyC Medical Advice [facility] Epilepsy Care [address] [place], [address] [place] [address] Keisha Dotson MD 909 [place] [address] Social History Tobacco Use Types [...] often do you attend oriental orthodox or nondenominational serv ices? Never 09/22/2021 Do [...] [facility] of Occupat ional [facility] - Occupational Stress [...] in a mcfp (including now)? No 09/22/2021 [place] Depression Scale Answer Date Recorded [place] Depression Score 5 01/14/2021 Last EPDS Self Harm Result Not on file 01/14 Education Answer Date Recorded What is the highest level of school you have completed or the highest degree you have received? 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 USER SUPPORT SPECIALIST Gender Identity Female 03/02/2021 5:45 PM [...] Description 10/23/2024 9:30 AM CDT Office Visit [facility] Neurology [address] [place] [address] [place] [address] [place] [address] Johnny Penn MD [address] [place] [address] 11/28/2024 7:45 AM CDT Virtual Visit [facility] Gastroenterology Clinic [address] [place] [address] Meredith Carrera PA-C 909 [place] [address] documented as of this encounter Visit Diagnoses Not on filedocumented in this encounter Additional Health Concerns Infection Onset Date Last Indicated Resolved Time Rule Out COVID-19 12/18/2021 12/18/2021 12/19/2021 11:34 AM CDT Rule Out COVID-19 02/24/2022 02/24/2022 02/25/2022 1:08 PM CDT Rule Out COVID-19 04/26/2022 04/26/2022 04/26/2022 6:47 AM CDT Rule Out COVID-19 05/17/2022 05/17/2022 05/17/2022 10:20 PM USER SUPPORT SPECIALIST Rule Out COVID-19 06/09/2022 06/09/2022 06/09/2022 9:35 AM USER SUPPORT SPECIALIST COVID-19 06/09/2022 06/09/2022 06/30/2022 11:4 1 PM USER SUPPORT SPECIALIST Rule Out COVID-19 11/10/2022 11/10/2022 11/11/2022 12:17 PM CDT Rule Out COVID-19 03/07/2023 03/07/2023 03/07/2023 1:20 PM CDT Rule Out COVID-19 12/26/2023 12/26/2023 12/26/2023 9:50 AM CDT Rule Out COVID-19 04/09/2024 04/09/2024 04/10/2024 6:48 PM CDT Assessment Noted Time PHQ-9 Depression Total Score: 2 04/02/20 10:19 AM CDT documented as of this encounter Care Teams Certified Performance Technologist Relationship Specialty Start Date End Date Marija Edgar APRN CNP PCP - General Nurse Practitioner 04/30/20 04/14/23 Esha Grimm PA-C [address] [place] [phone] PCP - General Family Medicine 05/04/23 Lita Oseguera Personal Advocate & Liaison (PAL) 02/28/20 03/27/23 Marija Edgar APRN WEB CONTENT MANAGER Assigned PCP 06/08/20 04/29/23 Keisha Dotson MD 909 [place], [place] [address]215 Assigned Neuroscience Provider 06/04/20 04/01/23 Galo Burrell MD Assigned Heart and Vascular Provider 10/05/20 04/02/22 [facility] [address] [place] [address] Pharmacist Pharmacist 04/17/21 Rain Galaviz PA-C [address] [place] [address] [place] [address] Physician Director Digital Advertising Dermatology 04/28/21 Summer Lara MD [address] [place] [address] 799794 Assigned OBGYN Provider 05/31/21 2 Tavia Wyatt MD [address] [place] [id number] Dermatology 07/14/21 Johnny Murillo MD [facility] [address] [place], [place] [address] Assigned Musculoskeletal Provider 08/30/21 03/17/22 Erica Farrell APRN WEB CONTENT MANAGER [address] [facility] [address] [place] [address] Nurse Practitioner Cardiovascular Disease 09/09/21 Tavia Wyatt MD [address] [place] [address] Assigned Surgical Provider 11/29/21 05/07/22 Diana Desir [facility] [address] [place] [address] Assigned MTM Pharmacist 01/02/22 Rich Barrett MD [address] [address] Physician Ophthalmology 01/21/22 Neil Kent MD 500 [place], [place] 940445 Dermatology 02/24/22 Roney Story DPM [address] [facility] 300 [place] [address] Assigned Musculoskeletal Provider 03/20/22 08/13/22 Erica Farrell APRN WEB CONTENT MANAGER 1700 [place] [address] Assigned Heart and Vascular Provider 04/03/22 04/16/22 Diana Desir [facility] [address] [place] [address] Assigned MTM Pharmacist 04/07/22 Jelena David OD [address] [facility] [address] Assigned Surgical Provider 05/08/22 10/08/22 Galo Burrell MD Assigned Heart and Vascular Provider 04/17/22 06/11/22 Livan Sharif MD [address] [place] [address] Cardiovascular Disease 05/14/22 iLvan Sharif MD [address] [place] [address] Assigned Heart and Vascular Provider 06/12/22 07/23/22 Catherine Cm MD [address] [place] [address]35[address] Cardiovascular Disease 07/21/22 Valery Veronica, PAUcheC 909 [place], [place] 6665[address] Physician Director Digital Advertising Dermatology 07/21/22 Catherine Cm MD [address] [place] [address] Assigned Heart and Vascular Provider 07/24/22 11/05/22 Johnny Murillo MD [address] 7[address]684 Assigned Musculoskeletal Provider 08/14/22 10/08/22 Brea Quinn APRN WEB CONTENT MANAGER 500 [place] [address] Nurse Practitioner Dermatology 09/21/22 Brea Quinn APRN WEB CONTENT MANAGER 6401 [facility] [place] [address] Assigned Surgical Provider 10/09/22 05/01/24 [place] [address] [facility] [address] [place], [place] 9[address]897 Assigned Musculoskeletal Provider 10/09/22 05/01/24 Livan Sharif MD [address] [facility] [address] [place] [address] Assigned Heart and Vascular Provider 11/06/22 11/12/22 Catherine Cm MD [address] [facility] [place] [address] Assigned Heart and Vascular Provider 11/13/22 05/27/23 Sydnie Martinez RN Personal Advocate & Liaison (PAL) Family Medicine 03/28/23 07/31/23 Alfonso Renteria MD 5775 [facility] 200 [place], [place] 417366 Assigned Neuroscience Provider 04/02/23 Cheng Todd PA-C [address] [place] [address] Assigned PCP 04/30/23 07/15/23 Radha Lomeli APRN WEB CONTENT MANAGER 6405 [facility] [address] [place] [address] Assigned Heart and Vascular Provider 05/28/23 Jelena David OD [address] [facility] [address] MD Ophthalmology 06/15/23 Pao Joseph, VJ Personal Advocate & Liaison (PAL) Nurse 08/01/23 11/07/23 Esha Grimm PA-C [address] [place] [phone] Assigned PCP 07/16/23 Valery Veronica PA-C [address] [place] [address]46295 Physician Director Digital Advertising Dermatology 09/19/23 Rey Tay MD [address] [place] [address]365 Gastroenterology 09/20/23 Rocky Zepeda DO [address] [place] [address] 214815 Physician Gastroenterology 09/20/23 Philip Dumont MD [address] [place] [address] 218365 Physician Ophthalmology 09/22/23 Meredith Carrera PA-C [address] [place] [address] 653755 Assigned Gastroenterology Provider 11/01/23 Neil Kent MD [address] [place] [address] Dermatology 11/02/23 [place] [address] 234[address] Neurological Surgery 12/26/23 Audrey Waite PAUcheC 500 [place] [address] Physician Director Digital Advertising Dermatology 02/28/24 Valery Veronica PAUcheC 77[address]40 [address], [place] [address] Physician Director Digital Advertising Dermatology 04/10/24 Herminia Hatch MD 1875 [place] [address] Assigned Rheumatology Provider 07/02/24 documented as of this encounter
--- OUTSIDE RECORDS SUMMARY | 2024-07-22 20:45 | XMS_ITS | Encounter Summary ---
Author Organization [facility] Address [address] [place] [address] Care Team Providers Care Rn Occupational Name Role Phone Lita Oseguera Unavailable Unavailable Marija Edgar APRN OPTICAL MANUFACTURING TECHNICIAN Primary Care Provider + Marija Edgar APRN OPTICAL MANUFACTURING TECHNICIAN Unavailable [phone] Mynor Broussard MD Unavailable [phone] Keisha Dotson MD Unavailable Galo Burrell MD Unavailable Unavailable Diana Desir [facility] Unavailable Rain Galaviz PA-C Unavailable Summer Lara MD Unavailable [phone] Tavia Wyatt MD Unavailable Johnny Murillo MD Unavailable Erica Farrell APRN OPTICAL MANUFACTURING TECHNICIAN Unavailable Tavia Wyatt MD Unavailable Diana Desir [facility] Unavailable Rich Barrett MD Unavailable [phone] Neil Kent MD Unavailable Roney Story DPM Unavailable Erica Farrell COCOA BEAN ROASTER OPTICAL MANUFACTURING TECHNICIAN Unavailable Diana Desir [facility] Unavailable Jelena David OD Unavailable Galo Burrell MD Unavailable Unavailable Livan Sharif MD Unavailable Livan Sharif MD Unavailable Catherine Cm MD Unavailable + Valery Veronica PA-C Unavailable [phone] Catherine Cm MD Unavailable + Johnny Murillo MD Unavailable [phone] Brea Quinn [employer]OCOA BEAN ROASTER OPTICAL MANUFACTURING TECHNICIAN Unavailable [phone] Brea Quinn COCOA BEAN ROASTER OPTICAL MANUFACTURING TECHNICIAN Unavailable [phone] Jose Francisco Johnson MD Unavailable Livan Sharif MD Unavailable + IsCatherine hobbs MD Unavailable + Sydnie Martinez RN Unavailable Unavailable Alfonso Renteria MD Unavailable Esha Grimm PA-C Primary Care Provider Cheng Todd PA-C Unavailable Radha Lomeli COCOA BEAN ROASTER OPTICAL MANUFACTURING TECHNICIAN Unavailable [phone] Jelena David OD Unavailable Pao Joseph RN Unavailable Unavailable Esha Grimm PA-C Unavailable [phone] Valery Veronica PA-C Unavailable [phone] Rey Tay MD Unavailable Rocky Zepeda DO Unavailable Philip Dumont MD Unavailable Meredith Carrera PA-C Unavailable [phone] Neil Kent MD Unavailable Juan Pablo Emmanuel MD Unavailable [phone] Audrey Waite PA-C Unavailable [phone] Valery Veronica PA-C Unavailable [phone] Herminia Hatch MD Unavailable Encounter Details Date Type Department Care Team (Late st Contact Info) Description 11/16/2021 [facility] Medical Advice [address] [address] [facility] [address] [place] [address] Social History Tobacco Use Types Packs/Day Years [...] How often do you attend [employer] or [employer] serv ices? Never 09/22/2021 Do [...] Answer Date Recorded PHQ-2 Score 2 09/22/2021 [facility] - [...] in a chcf (including now)? No 09/22/2021 [place] Depression Scale Answer Date Recorded [place] Depression Score 5 01/14/2021 Last EPDS Self Harm Result Not on file 01/14 Education Answer Date Recorded What is the highest level of school you have completed or the highest degree you have received? 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 PRESS OPERATOR ASSISTANT Gender Identity Female 03/02/2021 5:45 PM [...] CDT Office Visit [facility] Neurology [address], [address] [place] [address] [place] [address] [place] [address] Johnny Penn MD [address] [place] [id number] 11/28/2024 7:45 AM CDT Virtual Visit [facility] G[facility]ology [facility] [address] 4th [place] [phone] Meredith Carrera PA-C [address] [place] [address] documented as of this encounter Visit Diagnoses Not on filedocumented in this encounter Additional Health Concerns Infection Onset Date Last Indicated Resolved Time Rule Out COVID-19 12/18/2021 12/18/2021 12/19/2021 11:34 AM CDT Rule Out COVID-19 02/24/2022 02/24/2022 02/25/2022 1:08 PM CDT Rule Out COVID-19 04/26/2022 04/26/2022 04/26/2022 6:47 AM CDT Rule Out COVID-19 05/17/2022 05/17/2022 05/17/2022 10:20 PM PRESS OPERATOR ASSISTANT Rule Out COVID-19 06/09/2022 06/09/2022 06/09/2022 9:35 AM PRESS OPERATOR ASSISTANT COVID-19 06/09/2022 06/09/2022 06/30/2022 11:4 1 PM PRESS OPERATOR ASSISTANT Rule Out COVID-19 11/10/2022 11/10/2022 11/11/2022 12:17 PM CDT Rule Out COVID-19 03/07/2023 03/07/2023 03/07/2023 1:20 PM CDT Rule Out COVID-19 12/26/2023 12/26/2023 12/26/2023 9:50 AM CDT Rule Out COVID-19 04/09/2024 04/09/2024 04/10/2024 6:48 PM CDT Assessment Noted Time PHQ-9 Depression Total Score: 2 04/02/20 21 10:19 AM CDT documented as of this encounter Care Teams Rn Occupational Relationship Specialty Start Date End Date Marija Edgar APRN CNP PCP - General Nurse Practitioner 04/30/20 04/14/23 Esha Grimm PA-C [address] [place] [address] PCP - General Family Medicine 05/04/23 Lita Oseguera Personal Advocate & Liaison (PAL) 02/28/20 03/27/23 Marija Edgar APRN OPTICAL MANUFACTURING TECHNICIAN Assigned PCP 06/08/20 04/29/23 Mynor Broussard MD [address] [facility] 500 [place], [place] 4427[address] Assigned Surgical Provider 06/01/20 11/28/21 Keisha Dotson MD 909 [place], [place] 397[address] Assigned Neuroscience Provider 06/04/20 04/01/23 Galo Burrell MD Assigned Heart and Vascular Provider 10/05/20 04/02/22 Diana Desir, [facility] [address] [place] [address] Pharmacist Pharmacist 04/17/21 Rain Galaviz PA-C [address] [facility] [facility] [address] [place] [address] Physician Plastics Engineering Teacher Dermatology 04/28/21 Summer Lara MD [address] [place] [address] Assigned OBGYN Provider 05/31/21 2 Tavia Wyatt MD [address] [place] [address] Dermatology 07/14/21 Johnny Murillo MD [address] [place] [address] Assigned Musculoskeletal Provider 08/30/21 03/17/22 Erica Farrell APRN OPTICAL MANUFACTURING TECHNICIAN [address] [facility] [address] [place] [address] Nurse Practitioner Cardiovascular Disease 09/09/21 Tavia Wyatt MD [address] [place] [address] Assigned Surgical Provider 11/29/21 05/07/22 [facility] [address] [place] [address] Assigned MTM Pharmacist 01/02/22 Rich Barrett MD 516 [facility] 9A [place], [place] [address] Physician Ophthalmology 01/21/22 Neil Kent MD 500 [place], [place] 7[address] Dermatology 02/24/22 [place] [address] [facility] 300 [place] [address] Assigned Musculoskeletal Provider 03/20/22 08/13/22 Erica Farrell APRN OPTICAL MANUFACTURING TECHNICIAN 17[address] [place] [address] Assigned Heart and Vascular Provider 04/03/22 04/16/22 Diana Desir, [facility] [address] [place] [address] Assigned MTM Pharmacist 04/07/22 Jelena David OD [address] [facility] [place] [address] Assigned Surgical Provider 05/08/22 10/08/22 Galo Burrell MD Assigned Heart and Vascular Provider 04/17/22 06/11/22 Livan Sharif MD [address] [place] [address] Cardiovascular Disease 05/14/22 Livan Sharif MD [address] [place] [address] Assigned Heart and Vascular Provider 06/12/22 07/23/22 Catherine Cm MD [address] [place] [address] Cardiovascular Disease 07/21/22 Valery Veronica PA-C 909 [place], [place] 0935[address] Physician Plastics Engineering Teacher Dermatology 07/21/22 Catherine Cm MD [address] [place] [address] Assigned Heart and Vascular Provider 07/24/22 11/05/22 Johnny Murillo MD [facility] [address] Assigned Musculoskeletal Provider 08/14/22 10/08/22 Brea Quinn APRN OPTICAL MANUFACTURING TECHNICIAN 500 [place] [address] Nurse Practitioner Dermatology 09/21/22 Brea Quinn APRN OPTICAL MANUFACTURING TECHNICIAN 6401 [place] [address] Assigned Surgical Provider 10/09/22 05/01/24 [place] [address] [facility] 300 [place] [address] Assigned Musculoskeletal Provider 10/09/22 05/01/24 Livan Sharif MD 6405 [facility] [place] , [facility] [address] [place] [address] Assigned Heart and Vascular Provider 11/06/22 11/12/22 Catherine Cm MD 6405 [facility] [address] [place] [address] Assigned Heart and Vascular Provider 11/13/22 05/27/23 Sydnie Martinez, RN Personal Advocate & Liaison (PAL) Family Medicine 03/28/23 07/31/23 Alfonso Renteria MD 5775 [facility] 200 [place], [place] 9[address]146 Assigned Neuroscience Provider 04/02/23 Cheng Todd PA-C [address] [place] [address] [id number] Assigned PCP 04/30/23 07/15/23 Radha Lomeli APRN OPTICAL MANUFACTURING TECHNICIAN 6405 [facility] [address] [place] [address] Assigned Heart and Vascular Provider 05/28/23 Jelena David OD [address] [facility] [place] [address] MD Ophthalmology 06/15/23 Pao Joseph, VJ Personal Advocate & Liaison (PAL) Nurse 08/01/23 11/07/23 Esha Grimm PA-C [address] [place] [address] Assigned PCP 07/16/23 Valery Veronica PA-C [address] [place] [address] Physician Plastics Engineering Teacher Dermatology 09/19/23 Rey Tay MD [address] [place] [address] Gastroenterology 09/20/23 Rocky Zepeda DO [address] [place] [address] 464215 Physician Gastroenterology 09/20/23 Philip Dumont MD [address] [place] [address] 294975 Physician Ophthalmology 09/22/23 Meredith Carrera PA-C 9[address] [place], [place] 463365 Assigned Gastroenterology Provider 11/01/23 Neil Kent MD [address] 506[address] Dermatology 11/02/23 [place] [address] [place] [address] [id number] Neurological Surgery 12/26/23 Audrey Waite PA-C [address] [place] [address]4985 Physician Plastics Engineering Teacher Dermatology 02/28/24 Valery Veronica PA-C 409809 [address] [address] Physician Plastics Engineering Teacher Dermatology 04/10/24 Herminia Hatch MD [facility]5 [place], [place] [address] Assigned Rheumatology Provider 07/02/24 documented as of this encounter
--- OUTSIDE RECORDS SUMMARY | 2024-07-22 20:45 | XMS_ITS | Encounter Summary ---
Author Organization [facility] Address [address] [place] [address] Care Team Providers Care Glass Presser Name Role Phone Lita Oseguera Unavailable Unavailable Marija Edgar APRN WIND OPERATIONS SUPERVISOR Primary Care Provider + Marija Edgar APRN WIND OPERATIONS SUPERVISOR Unavailable Mynor Broussard MD Unavailable [phone] Keisha Dotson MD Unavailable [phone] Galo Burrell MD Unavailable Unavailable Diana Desir [facility] Unavailable [phone] Rain Galaviz PA-C Unavailable [phone] Summer Lara MD Unavailable [phone] Tavia Wyatt MD Unavailable Johnny Murillo MD Unavailable Erica Farrell APRN WIND OPERATIONS SUPERVISOR Unavailable Teresita Bean [facility] Unavailable Tavia Wyatt MD Unavailable Diana Desir [facility] Unavailable Rich Barrett MD Unavailable [phone] Neil Kent MD Unavailable Roney Story DPM Unavailable Erica Farrell PACKAGER WIND OPERATIONS SUPERVISOR Unavailable Thang Diana Stanislav [facility] Unavailable Jelena David OD Unavailable Galo Burrell MD Unavailable Unavailable Livan Sharif MD Unavailable + Livan Sharif MD Unavailable + Catherine Cm MD Unavailable + Valery Veronica PA-C Unavailable [phone] Catherine Cm MD Unavailable + Johnny Murillo MD Unavailable [phone] Brea Quinn PACKAGER WIND OPERATIONS SUPERVISOR Unavailable [phone] Brea Quinn PACKAGER WIND OPERATIONS SUPERVISOR Unavailable [phone] Jose Francisco Johnson MD Unavailable Lvian Sharif MD Unavailable + IsCatherine hobbs MD Unavailable + Sydnie Martinez RN Unavailable Unavailable Alfonso Renteria MD Unavailable Esha Grimm-C Primary Care Provider Cheng Todd PA-C Unavailable Radha Lomeli PACKAGER WIND OPERATIONS SUPERVISOR Unavailable [phone] Jelena David OD Unavailable Pao Joseph RN Unavailable Unavailable Esha Grimm-C Unavailable [phone] JeremíasValery damon PA-C Unavailable [phone] Rey Tya MD Unavailable Rocky Zepeda DO Unavailable Philip Dumont MD Unavailable [phone] Meredith CarreraC Unavailable [phone] Neil Kent MD Unavailable Juan Pablo Emmanuel MD Unavailable Audrey WaiteC Unavailable [phone] Valery Veronica PA-C Unavailable [phone] Herminia Hatch MD Unavailable Encounter Details Date Type Department Care Team (Late st Contact Info) Description 09/02/2021 [facility] [address] [address] [facility] [address] [place] [address] Social History Tobacco Use Types Packs/Day Years [...] you attend chur ch or holiness services? More than 4 times per year [...] Answer Date Recorded PHQ-2 Score 0 04/02/2021 [facility] [...] a senior living (including now)? No 08/11/2020 [place] Depression Scale Answer Date Recorded [place] Depression Score 5 01/14/2021 Last EPDS Self Harm Result Not on file 01/14 Education Answer Date Recorded What is the highest level of school you have completed or the highest degree you have received? 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 DINING SERVICE INSPECTOR Gender Identity Female 03/02/2021 5:45 PM CDT Sexual Orientation Straight 02/28/2020 12 :51 AM CDT COVID-19 Exposure Response Date Recorded In the last month, have you been in contact with someone who was confirmed or suspected to have Coronavirus / COVID-19? No / Unsure 09/02/2021 12:26 PM DINING SERVICE INSPECTOR documented as of this encounter Plan of Treatment Upcoming Encounters Date Type Department Care Team (Late st Contact Info) Description 10/23/2024 9:30 AM CDT Office Visit [facility] [place] [address] [place] [address], [address] [place] [address] [place] [address] [place] [address] Johnny Penn MD [address] [place] [address] 11/28/2024 7:45 AM CDT Virtual Visit [facility] Gastroenterology Clinic [address] [place] [address] Meredith Carrera PA-C [address] [place] [address] documented as of this encounter Visit Diagnoses Not on filedocumented in this encounter Additional Health Concerns Infection Onset Date Last Indicated Resolved Time Rule Out COVID-19 12/18/2021 12/18/2021 12/19/2021 11:34 AM CDT Rule Out COVID-19 02/24/2022 02/24/2022 02/25/2022 1:08 PM CDT Rule Out COVID-19 04/26/2022 04/26/2022 04/26/2022 6:47 AM CDT Rule Out COVID-19 05/17/2022 05/17/2022 05/17/2022 10:20 PM DINING SERVICE INSPECTOR Rule Out COVID-19 06/09/2022 06/09/2022 06/09/2022 9:35 AM DINING SERVICE INSPECTOR COVID-19 06/09/2022 06/09/2022 06/30/2022 11:4 1 PM DINING SERVICE INSPECTOR Rule Out COVID-19 11/10/2022 11/10/2022 11/11/2022 [...] Nurse Practitioner 04/30/20 04/14/23 Esha Grimm PA-C [address] [place] [phone] PCP - General Family Medicine 05/04/23 Lita Oseguera Personal Advocate & Liaison (PAL) 02/28/20 03/27/23 Marija Edgar APRN WIND OPERATIONS SUPERVISOR Assigned PCP 06/08/20 04/29/23 Mynor Broussard MD [address] [address] Assigned Surgical Provider 06/01/20 11/28/21 Keisha Dotson MD 909 [place] [address] Assigned Neuroscience Provider 06/04/20 04/01/23 Galo Burrell MD Assigned Heart and Vascular Provider 10/05/20 04/02/22 Diana Desir, [facility] [address] [place] [address] Pharmacist Pharmacist 04/17/21 Rain Galaviz PA-C [address] [place] [address] [address] [facility] [place] [address] Physician Costing Analyst Dermatology 04/28/21 Summer Lara MD [address] [place] [address] 311834 Assigned OBGYN Provider 05/31/21 2 Tavia Wyatt MD [address] [place], [place] 48[address] Dermatology 07/14/21 Johnny Murillo MD [address] [place] [address] Assigned Musculoskeletal Provider 08/30/21 03/17/22 Erica Farrell APRN WIND OPERATIONS SUPERVISOR 6405 [facility] [address] [place], [place] [address] Nurse Practitioner Cardiovascular Disease 09/09/21 Teresita Bean [facility] [address] [facility] [address] [place], [place] [phone] Pharmacist Pharmacist 09/24/21 09/29/21 Tavia Wyatt MD [address] [place], [place] [phone] Assigned Surgical Provider 11/29/21 05/07/22 Diana Desir, [facility] [address] [place] [address] Assigned MTM Pharmacist 01/02/22 Rich Barrett MD 516 [facility] 9A [place], [place] [phone] Physician Ophthalmology 01/21/22 Neil Kent MD 500 [place], [place] [phone] Dermatology 02/24/22 [place] [address] [facility] [address] [place] [address] Assigned Musculoskeletal Provider 03/20/22 08/13/22 Erica Farrell APRN WIND OPERATIONS SUPERVISOR 1700 [place] [address] Assigned Heart and Vascular Provider 04/03/22 04/16/22 Diana Desir, [facility] 30[address] [place], [place] 714586 Assigned MTM Pharmacist 04/07/22 Jelena David OD [address] [facility] [place] [address] Assigned Surgical Provider 05/08/22 10/08/22 Galo Burrell MD Assigned Heart and Vascular Provider 04/17/22 06/11/22 Livan Sharif MD [address] [place] [address] Cardiovascular Disease 05/14/22 Livan Sharif MD [address] [place] [address] Assigned Heart and Vascular Provider 06/12/22 07/23/22 Catherine Cm MD [address] [place] [address] Cardiovascular Disease 07/21/22 Valery Veronica, PAUcheC 909 [place] [address] Physician Costing Analyst Dermatology 07/21/22 Catherine Cm MD [address] [facility] [place] [address] Assigned Heart and Vascular Provider 07/24/22 11/05/22 Johnny Murillo MD [facility] [address] [address] Assigned Musculoskeletal Provider 08/14/22 10/08/22 Brea Quinn APRN WIND OPERATIONS SUPERVISOR [address] [place] [address] 255055 Nurse Practitioner Dermatology 09/21/22 Brea Quinn APRN WIND OPERATIONS SUPERVISOR [address] [place] [address] [place] 580452 Assigned Surgical Provider 10/09/22 05/01/24 [place] [address] [place] [address] [address] Assigned Musculoskeletal Provider 10/09/22 05/01/24 Livan Sharif MD [address], [facility] [address] [place] 937015 Assigned Heart and Vascular Provider 11/06/22 11/12/22 Catherine Cm MD [address] [place] 890725 Assigned Heart and Vascular Provider 11/13/22 05/27/23 Sydnie Martinez, RN Personal Advocate & Liaison (PAL) Family Medicine 03/28/23 07/31/23 Alfonso Renteria MD [address] [address] [place] [address] Assigned Neuroscience Provider 04/02/23 Cheng Todd PA-C [address] [place] [address] [id number] Assigned PCP 04/30/23 07/15/23 Radha Lomeli APRN WIND OPERATIONS SUPERVISOR 6405 [facility] [address] [place], [place] 427[address] Assigned Heart and Vascular Provider 05/28/23 Jelena David OD [address] [facility] [place] [address] Ophthalmology 06/15/23 Pao Joseph, VJ Personal Advocate & Liaison (PAL) Nurse 08/01/23 11/07/23 Esha Grimm PA-C [address] [place] [address] Assigned PCP 07/16/23 Valery Veronica PA-C [address] [place] [address] Physician Costing Analyst Dermatology 09/19/23 Rey Tay MD 909 [place], [place] 230835 Gastroenterology 09/20/23 Rocky Zepeda DO 500 [place] [address] Physician Gastroenterology 09/20/23 Philip Dumont MD 516 [place] [address] Physician Ophthalmology 09/22/23 Meredith Carrera PA-C 909 [place] [address] Assigned Gastroenterology Provider 11/01/23 Neil Kent MD [address] [address] MD Dermatology 11/02/23 [place] [address] [place] [address] [address] Neurological Surgery 12/26/23 Audrey Waite PA-C 500 [place] [address] Physician Costing Analyst Dermatology 02/28/24 Valery Veronica PA-C 644207 [address], [place] [address] Physician Costing Analyst Dermatology 04/10/24 Herminia Hatch MD [facility]5 [place], [place] [address] Assigned Rheumatology Provider 07/02/24 documented as of this encounter
--- OUTSIDE RECORDS SUMMARY | 2024-07-22 20:45 | XMS_ITS | Encounter Summary ---
Author Organization [facility] Address [address] [place] [address] Care Team Providers Care Hrbp Name Role Phone Lita Oseguera Unavailable Unavailable Marija Edgar APRN HISTORIOGRAPHY PROFESSOR Primary Care Provider + Marija Edgar APRN HISTORIOGRAPHY PROFESSOR Unavailable [phone] Mynor Broussard MD Unavailable [phone] Keisha Dotson MD Unavailable Galo Burrell MD Unavailable Unavailable Diana Desir [facility] Unavailable Rain Galaviz PA-C Unavailable Summer Lara MD Unavailable [phone] Tavia Wyatt MD Unavailable Johnny Murillo MD Unavailable Erica Farrell APRN HISTORIOGRAPHY PROFESSOR Unavailable Tavia Wyatt MD Unavailable Diana Desir [facility] Unavailable Rich Barrett MD Unavailable [phone] Neil Kent MD Unavailable Roney Story DPM Unavailable Erica Farrell INSTANT PRINT OPERATOR HISTORIOGRAPHY PROFESSOR Unavailable Diana Desir [facility] Unavailable Jelena David OD Unavailable Galo Burrell MD Unavailable Unavailable Livan Sharif MD Unavailable Livan Sharif MD Unavailable Catherine Cm MD Unavailable + Valery Veronica PA-C Unavailable [phone] Catherine Cm MD Unavailable + Johnny Murillo MD Unavailable [phone] Brea Quinn INSTANT PRINT OPERATOR HISTORIOGRAPHY PROFESSOR Unavailable [phone] Brea Quinn INSTANT PRINT OPERATOR HISTORIOGRAPHY PROFESSOR Unavailable [phone] Jose Francisco Johnson MD Unavailable Livan Sharif MD Unavailable + IsCatherine hobbs MD Unavailable + Sydnie Martinez RN Unavailable Unavailable Alfonso Renteria MD Unavailable Esha Grimm PA-C Primary Care Provider Cheng Todd PA-C Unavailable Radha Lomeli INSTANT PRINT OPERATOR HISTORIOGRAPHY PROFESSOR Unavailable [phone] Jelena David OD Unavailable Pao Joseph RN Unavailable Unavailable Esha Grimm PA-C Unavailable [phone] Valery Veronica PA-C Unavailable [phone] Rey Tay MD Unavailable Rocky Zepeda DO Unavailable Phliip Dumont MD Unavailable Meredith Carrera PA-C Unavailable [phone] Neil Kent MD Unavailable Juan Pablo Emmanuel MD Unavailable [phone] Audrey Waite PA-C Unavailable [phone] Valery Veronica PA-C Unavailable [phone] Herminia Hatch MD Unavailable Encounter Details Date Type Department Care Team (Late st Contact Info) Description 11/04/2021 [facility] [address] [address] [facility] [address] [place] [address] Social History Tobacco Use Types Packs/Day Years [...] How often do you attend yarsani or presybeterian serv ices? Never 09/22/2021 Do you belong [...] in a mcc (including now)? No 09/22/2021 Peebles Depression Scale Answer Date Recorded Peebles Depression Score 5 01/14/2021 Last EPDS Self Harm Result Not on file 01/14 Education Answer Date Recorded What is the highest level of school you have completed or the highest degree you have received? 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 SALES ACCOUNT MANAGER Gender Identity Female 03/02/2021 5:45 PM [...] Visit [facility] Neurology [address], [address] [place] [address] [place] [address] [place] [address] Johnny Penn MD [address] [place] [id number] 11/28/2024 7:45 AM CDT Virtual Visit [facility] Gastroenterology Clinic [address] 4th [place] [phone] Meredith Carrera PA-C [address] [place] [address] documented as of this encounter Visit Diagnoses Not on filedocumented in this encounter Additional Health Concerns Infection Onset Date Last Indicated Resolved Time Rule Out COVID-19 12/18/2021 12/18/2021 12/19/2021 11:34 AM CDT Rule Out COVID-19 02/24/2022 02/24/2022 02/25/2022 1:08 PM CDT Rule Out COVID-19 04/26/2022 04/26/2022 04/26/2022 6:47 AM CDT Rule Out COVID-19 05/17/2022 05/17/2022 05/17/2022 10:20 PM SALES ACCOUNT MANAGER Rule Out COVID-19 06/09/2022 06/09/2022 06/09/2022 9:35 AM SALES ACCOUNT MANAGER COVID-19 06/09/2022 06/09/2022 06/30/2022 11:4 1 PM SALES ACCOUNT MANAGER Rule Out COVID-19 11/10/2022 11/10/2022 11/11/2022 12:17 PM CDT Rule Out COVID-19 03/07/2023 03/07/2023 03/07/2023 1:20 PM CDT Rule Out COVID-19 12/26/2023 12/26/2023 12/26/2023 9:50 AM CDT Rule Out COVID-19 04/09/2024 04/09/2024 04/10/2024 6:48 PM CDT Assessment Noted Time PHQ-9 Depression Total Score: 2 04/02/20 21 10:19 AM CDT documented as of this encounter Care Teams Hrbp Relationship Specialty Start Date End Date Marija Edgar APRN CNP PCP - General Nurse Practitioner 04/30/20 04/14/23 Esha Grimm PA-C [address] [place] [address] PCP - General Family Medicine 05/04/23 Lita Oseguera Personal Advocate & Liaison (PAL) 02/28/20 03/27/23 Marija Edgar APRN HISTORIOGRAPHY PROFESSOR Assigned PCP 06/08/20 04/29/23 Mynor Broussard MD 6363 [facility] 500 [place], [place] 36[address] Assigned Surgical Provider 06/01/20 11/28/21 Keisha Dotson MD [address] [place], [place] 684325 Assigned Neuroscience Provider 06/04/20 04/01/23 Galo Burrell MD Assigned Heart and Vascular Provider 10/05/20 04/02/22 Diana Desir, [facility] [address] [place] [address] Pharmacist Pharmacist 04/17/21 Rain Galaviz PA-C [address] [facility] [facility] [address] [place] [address] Physician Breaker Mechanic Dermatology 04/28/21 Summer Lara MD [address] [place] [address] Assigned OBGYN Provider 05/31/21 2 Tavia Wyatt MD [address] [place] [address] Dermatology 07/14/21 Johnny Murillo MD [address] [place] [address] Assigned Musculoskeletal Provider 08/30/21 03/17/22 Erica Farrell APRN HISTORIOGRAPHY PROFESSOR 6[address] [facility] [address] [place] [address] Nurse Practitioner Cardiovascular Disease 09/09/21 Tavia Wyatt MD [address] [place] [address] Assigned Surgical Provider 11/29/21 05/07/22 [facility] [address] [place] [address] Assigned MTM Pharmacist 01/02/22 Rich Barrett MD 516 [facility] [address] [place], [place] [address] Physician Ophthalmology 01/21/22 Neil Kent MD 500 [place], [place] [address] Dermatology 02/24/22 Roney Story DPM [address] [facility] 300 [place] [address] Assigned Musculoskeletal Provider 03/20/22 08/13/22 Eriac Farrell APRN HISTORIOGRAPHY PROFESSOR 17[address] [place] [address] Assigned Heart and Vascular Provider 04/03/22 04/16/22 Diana Desir, [facility] [address] [place] [address] Assigned MTM Pharmacist 04/07/22 [place] [address] [place] [address] Assigned Surgical Provider 05/08/22 10/08/22 Galo Burrell MD Assigned Heart and Vascular Provider 04/17/22 06/11/22 Livan Sharif MD [address] [place] [address] Cardiovascular Disease 05/14/22 Livan Sharif MD [address] [place] [address] Assigned Heart and Vascular Provider 06/12/22 07/23/22 Catherine Cm MD [address] [place] [address] Cardiovascular Disease 07/21/22 Valery Veronica PA-C [address] [place], [place] 3744[address] Physician Breaker Mechanic Dermatology 07/21/22 Catherine Cm MD [address] [place] [address]73[address] Assigned Heart and Vascular Provider 07/24/22 11/05/22 Johnny Murillo MD [facility] [address] Assigned Musculoskeletal Provider 08/14/22 10/08/22 Brea Quinn APRN HISTORIOGRAPHY PROFESSOR 500 [place] [address] Nurse Practitioner Dermatology 09/21/22 Brea Quinn APRN HISTORIOGRAPHY PROFESSOR 6401 [place] [address] Assigned Surgical Provider 10/09/22 05/01/24 [place] [address] [facility] [address] [place] [address] Assigned Musculoskeletal Provider 10/09/22 05/01/24 Livan Sharif MD 6405 [facility] [address] [place] [address] Assigned Heart and Vascular Provider 11/06/22 11/12/22 Catherine Cm MD 6405 [facility] [address] [place] [address] Assigned Heart and Vascular Provider 11/13/22 05/27/23 Sydnie Martinez, RN Personal Advocate & Liaison (PAL) Family Medicine 03/28/23 07/31/23 Alfonso Renteria MD [address] 200 [place], [place] 043936 Assigned Neuroscience Provider 04/02/23 Cheng Todd PA-C [address] [place] [address] [id number] Assigned PCP 04/30/23 07/15/23 Radha Lomeli APRN HISTORIOGRAPHY PROFESSOR 6405 [facility] [address] [place] [address] Assigned Heart and Vascular Provider 05/28/23 [place] [address] [place] [address] MD Ophthalmology 06/15/23 Pao Joseph, VJ Personal Advocate & Liaison (PAL) Nurse 08/01/23 11/07/23 Esha Grimm PA-C [address] [place] [address] Assigned PCP 07/16/23 Valery Veronica PA-C [address] [place] [address] Physician Breaker Mechanic Dermatology 09/19/23 Rey Tay MD [address] [place] [address] Gastroenterology 09/20/23 Rocky Zepeda DO [address] [place] [address] 811615 Physician Gastroenterology 09/20/23 Philip Dumont MD [address] [place] [address] 354085 Physician Ophthalmology 09/22/23 Meredith Carrera PA-C [address] [place], [place] 665525 Assigned Gastroenterology Provider 11/01/23 Neil Kent MD [address] 980[address] Dermatology 11/02/23 [place] [address] [place] [address] [phone] Neurological Surgery 12/26/23 Audrey Waite PA-C [address] [place] [address] 873105 Physician Breaker Mechanic Dermatology 02/28/24 Valery Veronica PA-C 660729 [address], [place] [address] Physician Breaker Mechanic Dermatology 04/10/24 Herminia Hatch MD [facility]5 [place], [place] 31[address] Assigned Rheumatology Provider 07/02/24 documented as of this encounter
--- OUTSIDE RECORDS SUMMARY | 2024-07-22 20:45 | XMS_ITS | Encounter Summary ---
Author Organization [facility] Address [address] [place] [address] Care Team Providers Care Blasting Contract Miner Name Role Phone Lita Oseguera Unavailable Unavailable Marija Edgar APRN CLEATER Primary Care Provider + Marija Edgar APRN CLEATER Unavailable [phone] Keisha Dotson MD Unavailable Galo Burrell MD Unavailable Unavailable Diana Desir [facility] Unavailable [phone] Rain Galaviz PA-C Unavailable Summer Lara MD Unavailable [phone] Tavia Wyatt MD Unavailable Johnny Murillo MD Unavailable Erica Farrell APRN CLEATER Unavailable Tavia Wyatt MD Unavailable Diana Desir [facility] Unavailable Rich Barrett MD Unavailable Neil Kent MD Unavailable Roney Story DPM Unavailable [phone] Erica Farrell APRN CLEATER Unavailable + Diana Desir [facility] Unavailable Jelena David OD Unavailable Galo Burrell MD Unavailable Unavailable HoLivan MD Unavailable Livan Sharif MD Unavailable IskoCatherine boothe MD Unavailable + Valery Veronica PA-C Unavailable [phone] Catherine Cm MD Unavailable + Johnny Murillo MD Unavailable [phone] Brea Quinn DIRECTOR OF EMPLOYER SERVICES CLEATER Unavailable [phone] Brea Quinn DIRECTOR OF EMPLOYER SERVICES CLEATER Unavailable [phone] Jose Francisco Johnson MD Unavailable Livan Sharif MD Unavailable + IsCatherine boothe MD Unavailable + Sydnie Martinez RN Unavailable Unavailable Alfonso Renteria MD Unavailable Esha Grimm PA-C Primary Care Provider Cheng Todd PA-C Unavailable Radha Lomeli DIRECTOR OF EMPLOYER SERVICES CLEATER Unavailable [phone] Jelena David OD Unavailable Pao Joseph RN Unavailable Unavailable Esha Grimm PA-C Unavailable [phone] Valery Veronica PA-C Unavailable [phone] Rey Tay MD Unavailable Rocky Zepeda DO Unavailable Philip Dumont MD Unavailable [phone] Meredith Carrera PA-C Unavailable Neil Kent MD Unavailable Juan Pablo Emmanuel MD Unavailable [phone] Audrey Waite PA-C Unavailable [phone] Valery Veronica PA-C Unavailable [phone] Herminia Hatch MD Unavailable Encounter Details Date Type Department Care Team (Late st Contact Info) Description 12/03/2021 [facility] Medical Advice [address] [address] Debbie Hdez MA Social History [...] How often do you attend muslim or mandaen serv ices? Never 09/22/2021 Do [...] Answer Date Recorded PHQ-2 Score 2 09/22/2021 [facility] [...] in a intermediate (including now)? No 09/22/2021 Hornbeck Depression Scale Answer Date Recorded Hornbeck Depression Score 5 01/14/2021 Last EPDS Self Harm Result Not on file 01/14 Education Answer Date Recorded What is the highest level of school you have completed or the highest degree you have received? 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 VAULT CASHIER Gender Identity Female 03/02/2021 5:45 PM [...] Description 10/23/2024 9:30 AM CDT Office Visit [facility] Neurology [address], [address] [place] [address] [place] [address] [place], [place] 89[address] Johnny Penn MD 65[address] [place], [place] [address] 11/28/2024 7:45 AM CDT Virtual Visit [facility] Gastroenterology Clinic [address] 4th [place] [address] Meredith Carrera PA-C [address] [place] [address] documented as of this encounter Visit Diagnoses Not on filedocumented in this encounter Additional Health Concerns Infection Onset Date Last Indicated Resolved Time Rule Out COVID-19 12/18/2021 12/18/2021 12/19/2021 11:34 AM CDT Rule Out COVID-19 02/24/2022 02/24/2022 02/25/2022 1:08 PM CDT Rule Out COVID-19 04/26/2022 04/26/2022 04/26/2022 6:47 AM CDT Rule Out COVID-19 05/17/2022 05/17/2022 05/17/2022 10:20 PM VAULT CASHIER Rule Out COVID-19 06/09/2022 06/09/2022 06/09/2022 9:35 AM VAULT CASHIER COVID-19 06/09/2022 06/09/2022 06/30/2022 11:4 1 PM VAULT CASHIER Rule Out COVID-19 11/10/2022 11/10/2022 11/11/2022 12:17 PM CDT Rule Out COVID-19 03/07/2023 03/07/2023 03/07/2023 1:20 PM CDT Rule Out COVID-19 12/26/2023 12/26/2023 12/26/2023 9:50 AM CDT Rule Out COVID-19 04/09/2024 04/09/2024 04/10/2024 6:48 PM CDT Assessment Noted Time PHQ-9 Depression Total Score: 2 04/02/20 10:19 AM CDT documented as of this encounter Care Teams Blasting Contract Miner Relationship Specialty Start Date End Date Marija Edgar APRN CNP PCP - General Nurse Practitioner 04/30/20 04/14/23 Esha Grimm PA-C [address] [place] [address] PCP - General Family Medicine 05/04/23 Lita Oseguera Personal Advocate & Liaison (PAL) 02/28/20 03/27/23 Marija Edgar APRN CLEATER Assigned PCP 06/08/20 04/29/23 Keisha Dotson MD 909 [place], [place] 761785 Assigned Neuroscience Provider 06/04/20 04/01/23 Galo Burrell MD Assigned Heart and Vascular Provider 10/05/20 04/02/22 [facility] 3033 [place] [address] Pharmacist Pharmacist 04/17/21 Rain Galaviz PA-C [address] [place] [address] [place] [address] Physician Ict Business Analyst Dermatology 04/28/21 Summer Lara MD [address] [place], [place] [address] Assigned OBGYN Provider 05/31/21 2 Tavia Wyatt MD [address] [place], [place] [address] Dermatology 07/14/21 Johnny Murillo MD [address] [place] [address] Assigned Musculoskeletal Provider 08/30/21 03/17/22 Erica Farrell APRN CLEATER 6405 [facility] [address] [place] [address] Nurse Practitioner Cardiovascular Disease 09/09/21 Tavia Wyatt MD [address] [place] [address] Assigned Surgical Provider 11/29/21 05/07/22 Diana Desir [facility] 30[address] [place] [address] Assigned MTM Pharmacist 01/02/22 Rich Barrett MD [address] [phone] Physician Ophthalmology 01/21/22 Neil Kent MD 500 [place], [place] [address]15 Dermatology 02/24/22 Roney Story DPM [address] [facility] [address] [place] [address] Assigned Musculoskeletal Provider 03/20/22 08/13/22 Erica Farrell APRN CLEATER 1700 [place] [address] Assigned Heart and Vascular Provider 04/03/22 04/16/22 Diana Desir [facility] 30[address] [place] [address] Assigned MTM Pharmacist 04/07/22 Jelena David OD [address] [facility] [place] [address] Assigned Surgical Provider 05/08/22 10/08/22 Galo Burrell MD Assigned Heart and Vascular Provider 04/17/22 06/11/22 Livan Sharif MD [address], [facility]00 [place], [place] [address] Cardiovascular Disease 05/14/22 Livan Sharif MD [address], [place] [address] [place] [address] Assigned Heart and Vascular Provider 06/12/22 07/23/22 Catherine Cm MD [address] [place] [address] [place], [place] [address] Cardiovascular Disease 07/21/22 Valery Veronica, PA-C [address] [place] [address] 094985 Physician Ict Business Analyst Dermatology 07/21/22 Catherine Cm MD [address] [place] [address] [place], [place] 8140[address] Assigned Heart and Vascular Provider 07/24/22 11/05/22 Johnny Murillo MD [address] [place] [address] 310144 Assigned Musculoskeletal Provider 08/14/22 10/08/22 Brea Quinn APRN CLEATER [address] [place] [address] Nurse Practitioner Dermatology 09/21/22 Brea Quinn APRN CLEATER [address] [place] [address] Assigned Surgical Provider 10/09/22 05/01/24 [place] [address] [address] Assigned Musculoskeletal Provider 10/09/22 05/01/24 Livan Sharif MD [address] [facility] [address] [place] [address] Assigned Heart and Vascular Provider 11/06/22 11/12/22 Catherine Cm MD [address] [facility] [place] [address] Assigned Heart and Vascular Provider 11/13/22 05/27/23 Sydnie Martinez, RN Personal Advocate & Liaison (PAL) Family Medicine 03/28/23 07/31/23 Alfonso Renteria MD 5775 [facility] 200 [place] [address] Assigned Neuroscience Provider 04/02/23 Cheng Todd PA-C [address] [place] [address] [id number] Assigned PCP 04/30/23 07/15/23 Radha Lomeli APRN CLEATER [address] [place] 037[address] Assigned Heart and Vascular Provider 05/28/23 Jelena David OD [address] [facility] [place] [address] MD Ophthalmology 06/15/23 Pao Joseph, RN Personal Advocate & Liaison (PAL) Nurse 08/01/23 11/07/23 Esha Grimm PA-C [address] [place] [address] Assigned PCP 07/16/23 Valery Veronica PA-C [address] [place] [address] Physician Ict Business Analyst Dermatology 09/19/23 Rey Tay MD [address] [place] [address] MD Gastroenterology 09/20/23 Rocky Zepeda DO [address] [place] [address] 585315 Physician Gastroenterology 09/20/23 Philip Dumont MD [address] [place] [address] 015265 Physician Ophthalmology 09/22/23 Meredith [place] PA-C [address] [place] [address] 818645 Assigned Gastroenterology Provider 11/01/23 Neil Kent MD [address] 816510 Dermatology 11/02/23 [place] [address] [address] Neurological Surgery 12/26/23 Audrey Waite PAUcheC [address] [place] [address] Physician Ict Business Analyst Dermatology 02/28/24 Valery Veronica PA-C [address] [address] Physician Ict Business Analyst Dermatology 04/10/24 Herminia Hatch MD [address] [place] [address] [phone] Assigned Rheumatology Provider 07/02/24 documented as of this encounter
--- OUTSIDE RECORDS SUMMARY | 2024-07-22 20:45 | XMS_ITS | Encounter Summary ---
Author Organization [facility] Address [address] [place] [address] Care Team Providers Care Ski Production Supervisor Name Role Phone Lita Oesguera Unavailable Unavailable Marija Edgar APRN SHAREPOINT ANALYST Primary Care Provider + Marija Edgar APRN SHAREPOINT ANALYST Unavailable [phone] Mynor Broussard MD Unavailable [phone] Keisha Dotson MD Unavailable Galo Burrell MD Unavailable Unavailable Diana Desir [facility] Unavailable [phone] Rain Galaviz PA-C Unavailable Summer Lara MD Unavailable [phone] Tavia Wyatt MD Unavailable Johnny Murillo MD Unavailable [phone] Erica Farrell APRN SHAREPOINT ANALYST Unavailable Tavia Wyatt MD Unavailable Diana Desir [facility] Unavailable Rich Barrett MD Unavailable [phone] Neil Kent MD Unavailable Roney Story DPM Unavailable Erica Farrell BLACK TOP MACHINE OPERATOR SHAREPOINT ANALYST Unavailable Diana Desir [facility] Unavailable Jelena David OD Unavailable Galo Burrell MD Unavailable Unavailable Livan Sharif MD Unavailable Livan Sharif MD Unavailable Catherine Cm MD Unavailable + Valery Veronica PA-C Unavailable [phone] Catherine Cm MD Unavailable + Johnny Murillo MD Unavailable [phone] Brea Quinn BLACK TOP MACHINE OPERATOR SHAREPOINT ANALYST Unavailable [phone] Brea Quinn BLACK TOP MACHINE OPERATOR SHAREPOINT ANALYST Unavailable [phone] Jose Francisco Johnson MD Unavailable Livan Sharif MD Unavailable + IsCatherine hobbs MD Unavailable + Sydnie Martinez RN Unavailable Unavailable Alfonso Renteria MD Unavailable Esha Grimm PA-C Primary Care Provider Cheng Todd PA-C Unavailable Radha Lomeli BLACK TOP MACHINE OPERATOR SHAREPOINT ANALYST Unavailable [phone] Jelena David OD Unavailable Pao Joseph RN Unavailable Unavailable Esha Grimm PA-C Unavailable [phone] Valery Veronica PA-C Unavailable [phone] Rey Tay MD Unavailable Rocky Zepeda DO Unavailable Philip Dumont MD Unavailable Meredith Carrera PA-C Unavailable [phone] Neil Kent MD Unavailable Juan Pablo Emmanuel MD Unavailable [phone] Audrey Waite PA-C Unavailable [phone] Valery Veronica PA-C Unavailable [phone] Herminia Hatch MD Unavailable Encounter Details Date Type Department Care Team (Late st Contact Info) Description 10/17/2021 [facility] Medical Advice [address] [address] [facility] [address] [place] [address] Social History Tobacco Use Types Packs/Day Years [...] How often do you attend yazidi or holiness serv ices? Never 09/22/2021 Do [...] a care home (including now)? No 09/22/2021 [place] Depression Scale Answer Date Recorded [place] Depression Score 5 01/14/2021 Last EPDS Self Harm Result Not on file 01/14 Education Answer Date Recorded What is the highest level of school you have completed or the highest degree you have received? 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 DIAGRAMMER AND SEAMER Gender Identity Female 03/02/2021 5:45 PM CDT [...] Description 10/23/2024 9:30 AM CDT Office Visit [facility] [address], [address] [place] [address] [place] [address] [address] [place] [address] Johnny Penn MD [address] [place] [id number] 11/28/2024 7:45 AM CDT Virtual Visit [facility] [address] 4th [place] [phone] Meredith Carrera PA-C [address] [place] [address] documented as of this encounter Visit Diagnoses Not on filedocumented in this encounter Additional Health Concerns Infection Onset Date Last Indicated Resolved Time Rule Out COVID-19 12/18/2021 12/18/2021 12/19/2021 11:34 AM CDT Rule Out COVID-19 02/24/2022 02/24/2022 02/25/2022 1:08 PM CDT Rule Out COVID-19 04/26/2022 04/26/2022 04/26/2022 6:47 AM CDT Rule Out COVID-19 05/17/2022 05/17/2022 05/17/2022 10:20 PM DIAGRAMMER AND SEAMER Rule Out COVID-19 06/09/2022 06/09/2022 06/09/2022 9:35 AM DIAGRAMMER AND SEAMER COVID-19 06/09/2022 06/09/2022 06/30/2022 11:4 1 PM DIAGRAMMER AND SEAMER Rule Out COVID-19 11/10/2022 11/10/2022 11/11/2022 12:17 PM CDT Rule Out COVID-19 03/07/2023 03/07/2023 03/07/2023 1:20 PM CDT Rule Out COVID-19 12/26/2023 12/26/2023 12/26/2023 9:50 AM CDT Rule Out COVID-19 04/09/2024 04/09/2024 04/10/2024 6:48 PM CDT Assessment Noted Time PHQ-9 Depression Total Score: 2 04/02/20 21 10:19 AM CDT documented as of this encounter Care Teams Ski Production Supervisor Relationship Specialty Start Date End Date Marija Edgar APRN CNP PCP - General Nurse Practitioner 04/30/20 04/14/23 Esha Grimm PA-C [address] [place] [phone] PCP - General Family Medicine 05/04/23 Lita Oseguera Personal Advocate & Liaison (PAL) 02/28/20 03/27/23 Marija Edgar APRN SHAREPOINT ANALYST Assigned PCP 06/08/20 04/29/23 Mynor Broussard MD 6363 [facility] 500 [place], [place] 664435 Assigned Surgical Provider 06/01/20 11/28/21 Keisha Dotson MD [address]09 [place], [place] 621235 Assigned Neuroscience Provider 06/04/20 04/01/23 Galo Burrell MD Assigned Heart and Vascular Provider 10/05/20 04/02/22 Diana Desir, [facility] [address] [place] [address] Pharmacist Pharmacist 04/17/21 Rain Galaviz PA-C [address] [place] [address] [address] [place] [address] Physician Yard Pilot Dermatology 04/28/21 Summer Lara MD [address] [place] [address] Assigned OBGYN Provider 05/31/21 2 Tavia Wyatt MD [address] [place] [address] Dermatology 07/14/21 Johnny Murillo MD [address] [place] [address] Assigned Musculoskeletal Provider 08/30/21 03/17/22 Erica Farrell APRN SHAREPOINT ANALYST [address] [facility] [address] [place] [address] Nurse Practitioner Cardiovascular Disease 09/09/21 Tavia Wyatt MD [address] [place] [address] Assigned Surgical Provider 11/29/21 05/07/22 [facility] [address] [place] [address] Assigned MTM Pharmacist 01/02/22 Rich Barrett MD 516 [facility] 9A [place], [place] 283[address] Physician Ophthalmology 01/21/22 Neil Kent MD 500 [place], [place] 05[address]25 Dermatology 02/24/22 Roney Story DPM [address] [facility] [address] [place], [place] [address] Assigned Musculoskeletal Provider 03/20/22 08/13/22 Erica Farrell APRN SHAREPOINT ANALYST 17[address] [place] [address] Assigned Heart and Vascular Provider 04/03/22 04/16/22 Diana Desir, [facility] [address] [place] [address] Assigned MTM Pharmacist 04/07/22 [address] [facility] [place] [address] Assigned Surgical Provider 05/08/22 10/08/22 Galo Burrell MD Assigned Heart and Vascular Provider 04/17/22 06/11/22 Livan Sharif MD [address] [place] [address] Cardiovascular Disease 05/14/22 Livan Sharif MD [address] [place] 0[address]335 Assigned Heart and Vascular Provider 06/12/22 07/23/22 Catherine Cm MD [address] [place] [address] Cardiovascular Disease 07/21/22 Valery Veronica PA-C 909 [place], [place] 337845 Physician Yard Pilot Dermatology 07/21/22 Catherine Cm MD [address] [place] [address] Assigned Heart and Vascular Provider 07/24/22 11/05/22 Johnny Murillo MD [address] [place] [address] Assigned Musculoskeletal Provider 08/14/22 10/08/22 Brea Quinn APRN SHAREPOINT ANALYST 500 [place] [address] Nurse Practitioner Dermatology 09/21/22 Brea Quinn APRN SHAREPOINT ANALYST [address] [place] [address] Assigned Surgical Provider 10/09/22 05/01/24 [place] [address] [address] Assigned Musculoskeletal Provider 10/09/22 05/01/24 Livan Sharif MD 6405 [facility] [address] [place] [address] Assigned Heart and Vascular Provider 11/06/22 11/12/22 Catherine Cm MD 6405 [facility] [address] [place] [address] Assigned Heart and Vascular Provider 11/13/22 05/27/23 Sydnie Martinez, VJ Personal Advocate & Liaison (PAL) Family Medicine 03/28/23 07/31/23 Alfonso Renteria MD [address] [facility] [address] [place], [place] 386796 Assigned Neuroscience Provider 04/02/23 Cheng Todd PA-C [address] [place] [address] [phone] Assigned PCP 04/30/23 07/15/23 Radha Lomeli APRN SHAREPOINT ANALYST 6405 [facility] [address] [place] [address] Assigned Heart and Vascular Provider 05/28/[address] David [address] [facility] [place] [address] MD Ophthalmology 06/15/23 Pao Joseph, VJ Personal Advocate & Liaison (PAL) Nurse 08/01/23 11/07/23 Esha Grimm PA-C [address] [place] [address] Assigned PCP 07/16/23 Valery Veronica PA-C [address] [place] [address] Physician Yard Pilot Dermatology 09/19/23 Rey Tay MD [address] [place] [address] 826465 Gastroenterology 09/20/23 Rocky Zepeda DO [address] [place] [address] [phone] Physician Gastroenterology 09/20/23 Philip Dumont MD [address] [place] [address] 352425 Physician Ophthalmology 09/22/23 Meredith Carrera PA-C [address] [place], [place] 488[address] Assigned Gastroenterology Provider 11/01/23 Neil Kent MD [address] 801[address] Dermatology 11/02/23 [place] [address] [place] [address] [phone] Neurological Surgery 12/26/23 Audrey Waite PA-C [address] [place] [address] 988925 Physician Yard Pilot Dermatology 02/28/24 Valery Veronica PA-C 764164 [address], [place] [address] Physician Yard Pilot Dermatology 04/10/24 Herminia Hatch MD [facility]5 [place], [place] [phone] Assigned Rheumatology Provider 07/02/24 documented as of this encounter
--- OUTSIDE RECORDS SUMMARY | 2024-07-22 20:45 | XMS_ITS | Encounter Summary ---
Author Organization [facility] Address [address] [place] [address] Care Team Providers Care Product Development Consultant Name Role Phone Lita Oseguera Unavailable Unavailable Marija Edgar APRN CARRY IN WORKER Primary Care Provider + Marija Edgar APRN CARRY IN WORKER Unavailable [phone] Keisha Dotson MD Unavailable Galo Burrell MD Unavailable Unavailable Diana Desir [facility] Unavailable Rain Galaviz PA-C Unavailable Summer Lara MD Unavailable [phone] Tavia Wyatt MD Unavailable Johnny Murillo MD Unavailable Erica Farrell APRN CARRY IN WORKER Unavailable Tavia Wyatt MD Unavailable Diana Desir [facility] Unavailable Rich Barrett MD Unavailable Neil Kent MD Unavailable Roney Story DPM Unavailable [phone] Erica Farrell APRN CARRY IN WORKER Unavailable + Diana Desir [facility] Unavailable Jelena David OD Unavailable Galo Burrell MD Unavailable Unavailable HoLivan MD Unavailable Livan Sharif MD Unavailable IskoCatherine boothe MD Unavailable + Valery Veronica PA-C Unavailable [phone] Catherine Cm MD Unavailable + Johnny Murillo MD Unavailable [phone] Brea Quinn FAMILY LAW ATTORNEY CARRY IN WORKER Unavailable [phone] Brea Quinn FAMILY LAW ATTORNEY CARRY IN WORKER Unavailable [phone] Jose Francisco Johnson MD Unavailable Livan Sharif MD Unavailable + IsCatherine boothe MD Unavailable + Sydnie Martinez RN Unavailable Unavailable Alfonso Renteria MD Unavailable Esha Grimm PA-C Primary Care Provider Cheng Todd PA-C Unavailable Radha Lomeli FAMILY LAW ATTORNEY CARRY IN WORKER Unavailable [phone] Jelena David OD Unavailable Pao Joseph RN Unavailable Unavailable Esha Grimm PA-C Unavailable [phone] Valery Veronica PA-C Unavailable [phone] Rey Tay MD Unavailable Rocky Zepeda DO Unavailable Philip Dumont MD Unavailable [phone] Meredith Carrera PA-C Unavailable Neil Kent MD Unavailable Juan Pablo Emmanuel MD Unavailable [phone] Audrey Waite PA-C Unavailable [phone] Valery Veronica PA-C Unavailable [phone] Herminia Hatch MD Unavailable Encounter Details Date Type Department Care Team (Late st Contact Info) Description 12/18/2021 Telephone [facility] [address] [place] [phone] Lauren Claudio PA-C [address] [place] [address] Social History Tobacco Use Types Packs/Day [...] How often do you attend catholic or adventism serv ices? Never 09/22/2021 Do [...] Answer Date Recorded PHQ-2 Score 2 12/18/2021 [facility] [...] in a mcfp (including now)? No 09/22/2021 [place] Depression Scale Answer Date Recorded [place] Depression Score 5 01/14/2021 Last EPDS Self Harm Result Not on file 01/14 Education Answer Date Recorded What is the highest level of school you have completed or the highest degree you have received? 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 REGULATORY AFFAIRS COORDINATOR Gender Identity Female 03/02/2021 5:45 PM [...] be reached at: Home number on file [phone] (home) Best Time: ANYTIME Can we leave a detailed message on this number? YES Call taken on 12/18/2021 at 11:01 AM by Amalia Deluca documented in this encounter Plan of Treatment Upcoming Encounters Date Type Department Care Team (Late st Contact Info) Description 10/23/2024 9:30 AM CDT Office Visit [facility] [place] [address] [facility], [address] [place] [phone] [place] [address] [place], [place] 3225[address] Johnny Penn MD [address] [place] [address] 11/28/2024 7:45 AM CDT Virtual Visit [facility] [address] 4th [place] [phone] Meredith Carrera PA-C [address] [place] [address] 860305 documented as of this encounter Visit Diagnoses Not on filedocumented in this encounter Additional Health Concerns Infection Onset Date Last Indicated Resolved Time Rule Out COVID-19 12/18/2021 12/18/2021 12/19/2021 11:34 AM CDT Rule Out COVID-19 02/24/2022 02/24/2022 02/25/2022 1:08 PM CDT Rule Out COVID-19 04/26/2022 04/26/2022 04/26/2022 6:47 AM CDT Rule Out COVID-19 05/17/2022 05/17/2022 05/17/2022 10:20 PM REGULATORY AFFAIRS COORDINATOR Rule Out COVID-19 06/09/2022 06/09/2022 06/09/2022 9:35 AM REGULATORY AFFAIRS COORDINATOR COVID-19 06/09/2022 06/09/2022 06/30/2022 11:4 1 PM REGULATORY AFFAIRS COORDINATOR Rule Out COVID-19 11/10/2022 11/10/2022 11/11/2022 12:17 PM CDT Rule Out COVID-19 03/07/2023 03/07/2023 03/07/2023 1:20 PM CDT Rule Out COVID-19 12/26/2023 12/26/2023 12/26/2023 9:50 AM CDT Rule Out COVID-19 04/09/2024 04/09/2024 04/10/2024 6:48 PM CDT Assessment Noted Time PHQ-9 Depression Total Score: 2 12/19/19 2:50 PM CDT documented as of this encounter Care Teams Product Development Consultant Relationship Specialty Start Date End Date Marija Edgar APRN CARRY IN WORKER PCP - General Nurse Practitioner 04/30/20 04/14/23 Esha Grimm PA-C [address] [place] [phone] PCP - General Family Medicine 05/04/23 Lita Oseguera Personal Advocate & Liaison (PAL) 02/28/20 03/27/23 Marija Edgar APRN CARRY IN WORKER Assigned PCP 06/08/20 04/29/23 Keisha Dotson MD 909 [place], [place] 883425 Assigned Neuroscience Provider 06/04/20 04/01/23 Galo Burrell MD Assigned Heart and Vascular Provider 10/05/20 04/02/22 Diana Desir, [facility] [address] [place], [place] [address] Pharmacist Pharmacist 04/17/21 Rain Galaviz PA-C [address] [place] [address] [address] [place] [address] Physician Instrumentation Supervisor Dermatology 04/28/21 Summer Lara MD [address] [place] [address] 557984 Assigned OBGYN Provider 05/31/21 2 Tavia Wyatt MD [address] [place] [address] 279364 Dermatology 07/14/21 Johnny Murillo MD [address] 715784 Assigned Musculoskeletal Provider 08/30/21 03/17/22 Erica Farrell APRN CARRY IN WORKER [address] [place] 6145100 [place] [address] Nurse Practitioner Cardiovascular Disease 09/09/21 Tavia Wyatt MD [address] [place], [place] 676200 Assigned Surgical Provider 11/29/21 05/07/22 Diana Desir, [facility] [address] [place] [address] Assigned MTM Pharmacist 01/02/22 Rich Barrett MD [address] 714185 Physician Ophthalmology 01/21/22 Neil Kent MD [address] [place] [address] [phone] Dermatology 02/24/22 Roney Story DPM [address] [facility] [address] [place], [place] 0[address]247 Assigned Musculoskeletal Provider 03/20/22 08/13/22 Erica Farrell APRN CARRY IN WORKER 1700 [place] [address] Assigned Heart and Vascular Provider 04/03/22 04/16/22 Diana Desir, [facility] [address] [place] [address] Assigned MTM Pharmacist 04/07/22 Jelena David OD [address] [facility] [address] Assigned Surgical Provider 05/08/22 10/08/22 Galo Burrell MD Assigned Heart and Vascular Provider 04/17/22 06/11/22 Livan Sharif MD [address] [place] [address] Cardiovascular Disease 05/14/22 Livan Sharif MD [address] [place] [address] Assigned Heart and Vascular Provider 06/12/22 07/23/22 Catherine Cm MD [address] [place] 0[address]75 Cardiovascular Disease 07/21/22 Valery Veronica PA-C 909 [place] [address] Physician Instrumentation Supervisor Dermatology 07/21/22 Catherine Cm MD [address] [place] [address] [place] 622825 Assigned Heart and Vascular Provider 07/24/22 11/05/22 Johnny Murillo MD [facility] [address] 380984 Assigned Musculoskeletal Provider 08/14/22 10/08/22 Brea Quinn APRN CARRY IN WORKER [address] [place] [address] 267265 Nurse Practitioner Dermatology 09/21/22 Brea Quinn APRN CARRY IN WORKER [address] [place] [address] [place] 964152 Assigned Surgical Provider 10/09/22 05/01/24 [place] [address] [phone] Assigned Musculoskeletal Provider 10/09/22 05/01/24 Livan Sharif MD [address] [place] [address] [place] 210105 Assigned Heart and Vascular Provider 11/06/22 11/12/22 Catherine Cm MD [address] [place] [address] [place] 698995 Assigned Heart and Vascular Provider 11/13/22 05/27/23 Sydnie Martinez, VJ Personal Advocate & Liaison (PAL) Family Medicine 03/28/23 07/31/23 Alfonso Renteria MD [address] [facility] [address] [place] [address] Assigned Neuroscience Provider 04/02/23 Cheng Todd PA-C [address] [place] [address] [id number] Assigned PCP 04/30/23 07/15/23 Radha Lomeli APRN CARRY IN WORKER 6405 [facility] [address] [place] [address] Assigned Heart and Vascular Provider 05/28/23 Jelena David OD [address] [facility] [address] Ophthalmology 06/15/23 Pao Joseph RN Personal Advocate & Liaison (PAL) Nurse 08/01/23 11/07/23 Esha Grimm PA-C [address] [place] [address] Assigned PCP 07/16/23 Valery Veronica PA-C [address] [place] [address] 922565 Physician Instrumentation Supervisor Dermatology 09/19/23 Rey Tay MD [address] [place] [address] [id number] MD Gastroenterology 09/20/23 Rocky Zepeda DO 500 [place] [address] Physician Gastroenterology 09/20/23 Philip Dumont MD 516 [place] [address] Physician Ophthalmology 09/22/23 Meredith Carrera PA-C 9 [place], [place] 888355 Assigned Gastroenterology Provider 11/01/23 Neil Kent MD [address] 919720 Dermatology 11/02/23 [place] [address] 643087 Neurological Surgery 12/26/23 Audrey Waite PA-C 500 [place] [address] Physician Instrumentation Supervisor Dermatology 02/28/24 Valery Veronica PA-C [address] [place] [address] Physician Instrumentation Supervisor Dermatology 04/10/24 Herminia Hatch MD [facility]5 [place] [address] Assigned Rheumatology Provider 07/02/24 documented as of this encounter
--- OUTSIDE RECORDS SUMMARY | 2024-07-22 20:45 | XMS_ITS | Encounter Summary ---
Author Organization [place] Address [address] [place] [address] Care Team Providers Care Chairman Of The Board Name Role Phone Lita Oseguera Unavailable Unavailable Marija Edgar APRN BORING MILL SET UP OPERATOR Primary Care Provider + Marija Edgar APRN BORING MILL SET UP OPERATOR Unavailable [phone] Mynor Broussard MD Unavailable [phone] Keisha Dotson MD Unavailable Galo Burrell MD Unavailable Unavailable Diana Desir [facility] Unavailable Rain Galaviz PA-C Unavailable Summer Lara MD Unavailable [phone] Tavia Wyatt MD Unavailable Johnny Murillo MD Unavailable [phone] Erica Farrell APRN BORING MILL SET UP OPERATOR Unavailable Tavia Wyatt MD Unavailable Diana Desir [facility] Unavailable Rich Barrett MD Unavailable [phone] Neil Kent MD Unavailable Roney Story DPM Unavailable Erica Farrell XEROX MACHINE ASSEMBLER BORING MILL SET UP OPERATOR Unavailable Diana Desir [facility] Unavailable Jelena David OD Unavailable Galo Burrell MD Unavailable Unavailable Livan Sharif MD Unavailable Livan Sharif MD Unavailable Catherine Cm MD Unavailable + Valery Veronica PA-C Unavailable [phone] Catherine Cm MD Unavailable + Johnny Murillo MD Unavailable [phone] Brea Quinn XEROX MACHINE ASSEMBLER BORING MILL SET UP OPERATOR Unavailable [phone] Brea Quinn XEROX MACHINE ASSEMBLER BORING MILL SET UP OPERATOR Unavailable [phone] Jose Francisco Johnson MD Unavailable Livan Sharif MD Unavailable + IsCatherine hobbs MD Unavailable + Sydnie Martinez RN Unavailable Unavailable Alfonso Renteria MD Unavailable Esha Grimm PA-C Primary Care Provider Cheng Todd PA-C Unavailable Radha Lomeli XEROX MACHINE ASSEMBLER BORING MILL SET UP OPERATOR Unavailable [phone] Jelena David OD Unavailable Pao Joseph RN Unavailable Unavailable Esha Grimm PA-C Unavailable [phone] Valery Veronica PA-C Unavailable [phone] Rey Tay MD Unavailable Rocky Zepeda DO Unavailable Philip Dumont MD Unavailable DebiMeredithC Unavailable [phone] Neil Kent MD Unavailable Juan Pablo Emmanuel MD Unavailable [phone] Audrey Waite PA-C Unavailable [phone] Valery Veronica PA-C Unavailable [phone] Herminia Hatch MD Unavailable Reason for Visit * Reason Onset Date Comments Refill Request 10/31/2021 sertraline Encounter Details Date Type Department Care Team (Late st Contact Info) Description 10/31/[address] [address] Marija Edgar APRN BORING MILL SET UP OPERATOR 0064 [facility] [place] [address] Refill Request (sertraline) Social History Tobacco [...] How often do you attend sikhism or yazidi serv ices? Never 09/22/2021 Do [...] a skilled nursing (including now)? No 09/22/2021 [place] Depression Scale Answer Date Recorded [place] Depression Score 5 01/14/2021 Last EPDS Self Harm Result Not on file 01/14 Education Answer Date Recorded What is the highest level of school you have completed or the highest degree you have received? 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 SECURITY DEVELOPER Gender Identity Female 03/02/2021 5:45 PM [...] - 11/02/2021 8:58 AM CDT Approved per [facility] CPA. Diana Desir, PharmD Medication Therapy Management Provider, [facility] Pager: [phone] * Telephone Encounter - Aleyda Scott RN [...] daily. Pt has follow up tomorrow with [facility] pharmacist to continue to work on taper. Appointments in Next Year Nov 03, 2021 3:30 PM Pharmacist Visit with Diana Desir [facility] ([facility] ) [phone] Informed patient that will route refill request [...] can be reached at: Other phone number: [phone] Best Time: ANYTIME Can we leave a detailed message on this number? YES Call taken on 10/31/2021 at 10:31 AM by Amalia Deluca documented in this encounter Plan of Treatment Upcoming Encounters Date Type Department Care Team (Late st Contact Info) Description 10/23/2024 9:30 AM CDT Office Visit [facility] [place] [address] [place] [address], [address] [place] [address] [place] [address] [place] [address] Johnny Penn MD [address] [place] [address] 11/28/2024 7:45 AM CDT Virtual Visit [facility] [place] [address] [place] [address] [address] 4[address] [place] [address] Meredith Carrera PA-C [address] [place] [address] documented as of this encounter Visit Diagnoses [...] Out COVID-19 05/17/2022 05/17/2022 05/17/2022 10:20 PM SECURITY DEVELOPER Rule Out COVID-19 06/09/2022 06/09/2022 06/09/2022 9:35 AM SECURITY DEVELOPER COVID-19 06/09/2022 06/09/2022 06/30/2022 11:4 1 PM SECURITY DEVELOPER Rule Out COVID-19 11/10/2022 11/10/2022 11/11/2022 12:17 PM CDT Rule Out COVID-19 03/07/2023 03/07/2023 03/07/2023 1:20 PM CDT Rule Out COVID-19 12/26/2023 12/26/2023 12/26/2023 9:50 AM CDT Rule Out COVID-19 04/09/2024 04/09/2024 04/10/2024 6:48 PM CDT Assessment Noted Time PHQ-9 Depression Total Score: 2 04/02/20 10:19 AM CDT documented as of this encounter Care Teams Chairman Of The Board Relationship Specialty Start Date End Date Marija Edgar APRN BORING MILL SET UP OPERATOR PCP - General Nurse Practitioner 04/30/20 04/14/23 Esha Grimm PA-C [address] [place] [address] PCP - General Family Medicine 05/04/23 Lita Oseguera Personal Advocate & Liaison (PAL) 02/28/20 03/27/23 Marija Edgar APRN BORING MILL SET UP OPERATOR Assigned PCP 06/08/20 04/29/23 Mynor Broussard MD [address] [address] Assigned Surgical Provider 06/01/20 11/28/21 Keisha Dotson MD 909 [place] [address] Assigned Neuroscience Provider 06/04/20 04/01/23 Galo Burrell MD Assigned Heart and Vascular Provider 10/05/20 04/02/22 Diana Desir, [facility] [address] [place] [address] Pharmacist Pharmacist 04/17/21 Rain Galaviz PA-C [address] [place] [address] [address] [facility] [facility] [place] [address] Physician Time Study Technologist Dermatology 04/28/21 Summer Lara MD [address] [place] [address] 374684 Assigned OBGYN Provider 05/31/21 2 Tavia Wyatt MD [address] [place], [place] 194164 Dermatology 07/14/21 Johnny Murillo MD [address] [place] [address] Assigned Musculoskeletal Provider 08/30/21 03/17/22 Erica Farrell APRN BORING MILL SET UP OPERATOR [address] [facility] [address] [place] [address] Nurse Practitioner Cardiovascular Disease 09/09/21 Tavia Wyatt MD [address] [place] [address] Assigned Surgical Provider 11/29/21 05/07/22 Diana Desir, [facility] [address] [place] [address] Assigned MTM Pharmacist 01/02/22 Rich Barrett MD [address] 819695 Physician Ophthalmology 01/21/22 Neil Kent MD 500 [place], [place] [phone] Dermatology 02/24/22 [place] [address] [facility] 300 [place], [place] 165487 Assigned Musculoskeletal Provider 03/20/22 08/13/22 Erica Farrell APRN BORING MILL SET UP OPERATOR 1700 [place] [address] Assigned Heart and Vascular Provider 04/03/22 04/16/22 Diana Desir, [facility] [address] [place] [address] Assigned MTM Pharmacist 04/07/22 [place] David OD [address] [facility] [place] [address] Assigned Surgical Provider 05/08/22 10/08/22 Galo Burrell MD Assigned Heart and Vascular Provider 04/17/22 06/11/22 Livan Sharif MD [address] [place] [address] Cardiovascular Disease 05/14/22 Livan Sharif MD [address] [place] [address] Assigned Heart and Vascular Provider 06/12/22 07/23/22 Catherine Cm MD [address] [place] [address]235 Cardiovascular Disease 07/21/22 Valery Veronica, PAUcheC 909 [place] [address] Physician Time Study Technologist Dermatology 07/21/22 IsCatherine hobbs MD [address] [facility]00 [place] [address] Assigned Heart and Vascular Provider 07/24/22 11/05/22 Johnny Murillo MD [address] 829684 Assigned Musculoskeletal Provider 08/14/22 10/08/22 Brea Quinn APRN BORING MILL SET UP OPERATOR 500 [place], [place] 531915 Nurse Practitioner Dermatology 09/21/22 Brea Quinn APRN BORING MILL SET UP OPERATOR 6401 [facility] [place] 7[address]372 Assigned Surgical Provider 10/09/22 05/01/24 [place] [address] [place] [address] 617027 Assigned Musculoskeletal Provider 10/09/22 05/01/24 Livan Sharif MD [address] [facility]00 [place] 298175 Assigned Heart and Vascular Provider 11/06/22 11/12/22 Catherine Cm MD [address] [facility]00 [place] 743485 Assigned Heart and Vascular Provider 11/13/22 05/27/23 Sydnie Martinez RN Personal Advocate & Liaison (PAL) Family Medicine 03/28/23 07/31/23 Alfonso Renteria MD [address] [facility] [address] [place] [address] Assigned Neuroscience Provider 04/02/23 Cheng Todd PA-C [address] [place] [address] Assigned PCP 04/30/23 07/15/23 Radha Lomeli APRN BORING MILL SET UP OPERATOR [address] [facility] [address] [place], [place] 788[address] Assigned Heart and Vascular Provider 05/28/23 Jelena David OD [address] [facility] [place] [address] Ophthalmology 06/15/23 Pao Joseph, VJ Personal Advocate & Liaison (PAL) Nurse 08/01/23 11/07/23 Esha Grimm PA-C [address] [place] [address] Assigned PCP 07/16/23 Valery Veronica PA-C [address] [place] [address]105 Physician Time Study Technologist Dermatology 09/19/23 Rey Tay MD [address] [place] [address] 729825 Gastroenterology 09/20/23 Rocky Zepeda DO [address] [place] [address] 411295 Physician Gastroenterology 09/20/23 Philip Dumont MD 516 [place] [address] Physician Ophthalmology 09/22/23 Meredith Carrera PA-C 909 [place] [address] Assigned Gastroenterology Provider 11/01/23 Neil Kent MD [address] [address] Dermatology 11/02/23 [place] [address] [place] [address] 970277 Neurological Surgery 12/26/23 Audrey Waite PA-C [address] [place] [address] Physician Time Study Technologist Dermatology 02/28/24 Valery Veronica PA-C [address] [place] [address] Physician Time Study Technologist Dermatology 04/10/24 Herminia Hatch MD [facility]5 [place] [address] Assigned Rheumatology Provider 07/02/24 documented as of this encounter
--- OUTSIDE RECORDS SUMMARY | 2024-07-22 20:45 | XMS_ITS | Encounter Summary ---
Author Organization [place] Address [address] [place] [address] Care Team Providers Care Security Team Lead Name Role Phone Lita Oseguera Unavailable Unavailable Marija Edgar APRN TREE CUTTER Primary Care Provider + Marija Edgar APRN TREE CUTTER Unavailable [phone] Keisha Dotson MD Unavailable [phone] Galo Burrell MD Unavailable Unavailable Diana Desir [facility] Unavailable Rain Galaviz PA-C Unavailable Summer Lara MD Unavailable [phone] Tavia Wyatt MD Unavailable Johnny Murillo MD Unavailable Erica Farrell APRN TREE CUTTER Unavailable Tavia Wyatt MD Unavailable Diana Desir [facility] Unavailable Rich Barrett MD Unavailable Neil Kent MD Unavailable Roney Story DPM Unavailable [phone] Erica Farrell APRN TREE CUTTER Unavailable + Diana Desir [facility] Unavailable Jelena David OD Unavailable Galo Burrell MD Unavailable Unavailable HoLivan MD Unavailable Livan Sharif MD Unavailable IskoCatherine boothe MD Unavailable + Valery Veronica PA-C Unavailable [phone] Catherine Cm MD Unavailable + Johnny Murillo MD Unavailable [phone] Brea Quinn TANKROOM WORKER TREE CUTTER Unavailable [phone] Brea Quinn TANKROOM WORKER TREE CUTTER Unavailable [phone] Jose Francisco Johnson MD Unavailable Livan Sharif MD Unavailable + IsCatherine boothe MD Unavailable + Sydnie Martinez RN Unavailable Unavailable Alfonso Renteria MD Unavailable Esha Grimm PA-C Primary Care Provider Cheng Todd PA-C Unavailable Radha Lomeli TANKROOM WORKER TREE CUTTER Unavailable [phone] Jelena David OD Unavailable Pao Joseph RN Unavailable Unavailable Esha Grimm PA-C Unavailable [phone] Valery Veronica PA-C Unavailable [phone] Rey Tay MD Unavailable Rocky Zepeda DO Unavailable Philip Dumont MD Unavailable [phone] Meredith Carrera PA-C Unavailable Neil Kent MD Unavailable Juan Pablo Emmanuel MD Unavailable [phone] Audrey Waite PA-C Unavailable [phone] Valery Veronica PA-C Unavailable [phone] Herminia Hatch MD Unavailable Encounter Details Date Type Department Care Team (Late st Contact Info) Description 01/22/2022 MyC Medical Advice [address] [address] Diana Desir, [facility] [address] [place] [address] Social History Tobacco Use Types Packs/Day Years [...] How often do you attend sabianist or jainism serv ices? Never 09/22/2021 Do [...] Answer Date Recorded PHQ-2 Score 2 12/18/2021 [facility] [...] a group home (including now)? No 09/22/2021 [place] Depression Scale Answer Date Recorded [place] Depression Score 5 01/14/2021 Last EPDS Self Harm Result Not on file 01/14 Education Answer Date Recorded What is the highest level of school you have completed or the highest degree you have received? 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 GRANITE CUTTER APPRENTICE Gender Identity Female 03/02/2021 5:45 PM CDT [...] Visit [facility] [address], [address] [place] [address] [place] [address] [place] [phone] Johnny Penn MD [address] [place] [id number] 11/28/2024 7:45 AM CDT Virtual Visit [facility] [address] [place] [address] Meredith Carrera PA-C 909 [place] [address] documented as of this encounter Visit Diagnoses Not on filedocumented in this encounter Additional Health Concerns Infection Onset Date Last Indicated Resolved Time Rule Out COVID-19 02/24/2022 02/24/2022 02/25/2022 1:08 PM CDT Rule Out COVID-19 04/26/2022 04/26/2022 04/26/2022 6:47 AM CDT Rule Out COVID-19 05/17/2022 05/17/2022 05/17/2022 10:20 PM GRANITE CUTTER APPRENTICE Rule Out COVID-19 06/09/2022 06/09/2022 06/09/2022 9:35 AM GRANITE CUTTER APPRENTICE COVID-19 06/09/2022 06/09/2022 06/30/2022 11:4 1 PM GRANITE CUTTER APPRENTICE Rule Out COVID-19 11/10/2022 11/10/2022 11/11/2022 12:17 PM CDT Rule Out COVID-19 03/07/2023 03/07/2023 03/07/2023 1:20 PM CDT Rule Out COVID-19 12/26/2023 12/26/2023 12/26/2023 9:50 AM CDT Rule Out COVID-19 04/09/2024 04/09/2024 04/10/2024 6:48 PM CDT Assessment Noted Time PHQ-9 Depression Total Score: 2 12/19/19 22 2:50 PM CDT documented as of this encounter Care Teams Security Team Lead Relationship Specialty Start Date End Date Marija Edgar APRN TREE CUTTER PCP - General Nurse Practitioner 04/30/20 04/14/23 Esha Grimm PA-C [address] [place] [address] PCP - General Family Medicine 05/04/23 Lita Oseguera Personal Advocate & Liaison (PAL) 02/28/20 03/27/23 Marija Edgar APRN TREE CUTTER Assigned PCP 06/08/20 04/29/23 Keisha Dotson MD 909 [place], [place] 0[address] Assigned Neuroscience Provider 06/04/20 04/01/23 Galo Burrell MD Assigned Heart and Vascular Provider 10/05/20 04/02/22 [facility] 3033 [place] [address] Pharmacist Pharmacist 04/17/21 Rain Galaviz PA-C [address] [place] [address] [place] [address] Physician Corn Cooker Dermatology 04/28/21 Summer Lara MD [address] [place], [place] 356054 Assigned OBGYN Provider 05/31/21 2 Tavia Wyatt MD [address] [place], [place] 383314 Dermatology 07/14/21 Johnny Murillo MD [facility] [address] [place] [address] Assigned Musculoskeletal Provider 08/30/21 03/17/22 Erica Farrell APRN TREE CUTTER 6405 [facility] [address] [place] [address] Nurse Practitioner Cardiovascular Disease 09/09/21 Tavia Wyatt MD [address] [place] [address] Assigned Surgical Provider 11/29/21 05/07/22 Diana Desir, [facility] [address] [place] [address] Assigned MTM Pharmacist 01/02/22 Rich Barrett MD [address] [address] Physician Ophthalmology 01/21/22 Neil Kent MD 500 [place], [place] 20[address]35 Dermatology 02/24/22 Roney Story DPM [address] [facility] [address] [place] [address] Assigned Musculoskeletal Provider 03/20/22 08/13/22 Erica Farrell APRN TREE CUTTER 1700 [place] [address] Assigned Heart and Vascular Provider 04/03/22 04/16/22 Diana Desir, [facility] [address] [place] [address] Assigned MTM Pharmacist 04/07/22 Jelena David OD [address] [facility] [address] Assigned Surgical Provider 05/08/22 10/08/22 Galo Burrell MD Assigned Heart and Vascular Provider 04/17/22 06/11/22 Livan Sharif MD [address] [facility] [address] [place], [place] [address] Cardiovascular Disease 05/14/22 Livan Sahrif MD [address], [facility] [address] [place] [address] Assigned Heart and Vascular Provider 06/12/22 07/23/22 Catherine Cm MD [address] [facility]00 [place] [address] Cardiovascular Disease 07/21/22 Valery Veronica, PA-C [address] [place] [address] Physician Corn Cooker Dermatology 07/21/22 Catherine Cm MD [address] [facility]00 [place] [address] Assigned Heart and Vascular Provider 07/24/22 11/05/22 Johnny Murillo MD [facility] [address] Assigned Musculoskeletal Provider 08/14/22 10/08/22 Brea Quinn APRN TREE CUTTER [address] [place] [address] [place] [address] Nurse Practitioner Dermatology 09/21/22 Brea Quinn APRN TREE CUTTER 6401 [facility] [place] [address] Assigned Surgical Provider 10/09/22 05/01/24 [place] [address] [place] [facility] 300 [place] [address] Assigned Musculoskeletal Provider 10/09/22 05/01/24 Livan Sharif MD [address] [facility] [address] [place] [address] Assigned Heart and Vascular Provider 11/06/22 11/12/22 Catherine Cm MD [address] [facility]00 [place] 887445 Assigned Heart and Vascular Provider 11/13/22 05/27/23 Sydnie Martinez, VJ Personal Advocate & Liaison (PAL) Family Medicine 03/28/23 07/31/23 Alfonso Renteria MD 5775 [facility] 200 [place] [address] Assigned Neuroscience Provider 04/02/23 Cheng Todd PA-C [address] [place] [address] Assigned PCP 04/30/23 07/15/23 Radha Lomeli APRN TREE CUTTER [address] [place] [address] Assigned Heart and Vascular Provider 05/28/23 Jelena David OD 3305 [facility] [address] MD Ophthalmology 06/15/23 Pao Joseph, RN Personal Advocate & Liaison (PAL) Nurse 08/01/23 11/07/23 Esha Grimm PA-C [address] [place] [address] Assigned PCP 07/16/23 Valery Veronica PA-C [address] [place] [address] 769585 Physician Corn Cooker Dermatology 09/19/23 Rey Tay MD [address] [place] [address] Gastroenterology 09/20/23 Rocky Zepeda DO [address] [place] [address] 576915 Physician Gastroenterology 09/20/23 Philip Dumont MD [address] [place] [address] 117015 Physician Ophthalmology 09/22/23 Meredith Carrera PA-C [address] [place] [address] 442955 Assigned Gastroenterology Provider 11/01/23 Neil Kent MD [address] 3728[address] Dermatology 11/02/23 [place] [address] [place] [address] [address] Neurological Surgery 12/26/23 Audrey Waite PA-C 500 [place] [address] Physician Corn Cooker Dermatology 02/28/24 Valery Veronica PA-C [address] [place] [address] Physician Corn Cooker Dermatology 04/10/24 Herminia Hatch MD [facility]5 [place], [place] [address] Assigned Rheumatology Provider 07/02/24 documented as of this encounter
--- OUTSIDE RECORDS SUMMARY | 2024-07-22 20:45 | XMS_ITS | Encounter Summary ---
Author Organization [facility] Address [address] [place] [address] Care Team Providers Care Dive Supervisor Name Role Phone Lita Oseguera Unavailable Unavailable Marija Edgar APRN ENGINEERING PROJECT MANAGER Primary Care Provider + Marija Edgar APRN ENGINEERING PROJECT MANAGER Unavailable [phone] Mynor Broussard MD Unavailable [phone] Keisha Dotson MD Unavailable Galo Burrell MD Unavailable Unavailable Diana eDsir [facility] Unavailable Rain Galaviz PA-C Unavailable Summer Lara MD Unavailable [phone] Tavia Wyatt MD Unavailable Johnny Murillo MD Unavailable Erica Farrell APRN ENGINEERING PROJECT MANAGER Unavailable Tavia Wyatt MD Unavailable Diana Desir [facility] Unavailable Rich Barrett MD Unavailable [phone] Neil Kent MD Unavailable Roney Story DPM Unavailable Erica Farrell HYDROCHLORIC AREA SUPERVISOR ENGINEERING PROJECT MANAGER Unavailable Diana Desir [facility] Unavailable Jelena David OD Unavailable Galo Burrell MD Unavailable Unavailable Livan Sharif MD Unavailable Livan Sharif MD Unavailable Catherine Cm MD Unavailable + Valery Veronica PA-C Unavailable [phone] Catherine Cm MD Unavailable + Johnny Murillo MD Unavailable [phone] Brea Quinn HYDROCHLORIC AREA SUPERVISOR ENGINEERING PROJECT MANAGER Unavailable [phone] Brea Quinn HYDROCHLORIC AREA SUPERVISOR ENGINEERING PROJECT MANAGER Unavailable [phone] Jose Francisco Johnson MD Unavailable Livan Sharif MD Unavailable + IsCatherine hobbs MD Unavailable + Sydnie Martinez RN Unavailable Unavailable Alfonso Renteria MD Unavailable Esha Grimm PA-C Primary Care Provider Cheng Todd PA-C Unavailable Radha Lomeli HYDROCHLORIC AREA SUPERVISOR ENGINEERING PROJECT MANAGER Unavailable [phone] Jelena David OD Unavailable Pao Joseph RN Unavailable Unavailable Esha Grimm PA-C Unavailable [phone] Valery Veronica PA-C Unavailable [phone] Rey Tay MD Unavailable Rocky Zepeda DO Unavailable Philip Dumont MD Unavailable Byron Carreranahed DOWC Unavailable [phone] Neil Kent MD Unavailable Juan Pablo Emmanuel MD Unavailable [phone] Audrey Waite PA-C Unavailable [phone] Valery Veronica PA-C Unavailable [phone] Herminia Hatch MD Unavailable Encounter Details Date Type Department Care Team (Late st Contact Info) Description 10/28/2021 MyC Medical Advice [facility] Heart [address] [place] [address] Erica Farrell APRN [facility] [address] [place], [place] [id number] Social History Tobacco Use Types Packs/Day Years [...] How often do you attend taoist or baptist serv ices? Never 09/22/2021 Do [...] Answer Date Recorded PHQ-2 Score 2 09/22/2021 [facility] of [facility]at ional [...] in a mcfp (including now)? No 09/22/2021 [place] Depression Scale Answer Date Recorded [place] Depression Score 5 01/14/2021 Last EPDS Self Harm Result Not on file 01/14 Education Answer Date Recorded What is the highest level of school you have completed or the highest degree you have received? 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 ECONOMIC FORECASTER Gender Identity Female 03/02/2021 5:45 PM CDT [...] 10/23/2024 9:30 AM CDT Office Visit [facility] Neurology Clinics - [address], [address] [place] [address] [place] [address] [place] [address] Johnny Penn MD [address] [place] [address] 11/28/2024 7:45 AM CDT Virtual Visit [facility] Gastroenterology Clinic [address] 4th [place] [address] Meredith Carrera PA-C [address] [place] [address] documented as of this encounter Visit Diagnoses Not on filedocumented in this encounter Additional Health Concerns Infection Onset Date Last Indicated Resolved Time Rule Out COVID-19 12/18/2021 12/18/2021 12/19/2021 11:34 AM CDT Rule Out COVID-19 02/24/2022 02/24/2022 02/25/2022 1:08 PM CDT Rule Out COVID-19 04/26/2022 04/26/2022 04/26/2022 6:47 AM CDT Rule Out COVID-19 05/17/2022 05/17/2022 05/17/2022 10:20 PM ECONOMIC FORECASTER Rule Out COVID-19 06/09/2022 06/09/2022 06/09/2022 9:35 AM ECONOMIC FORECASTER COVID-19 06/09/2022 06/09/2022 06/30/2022 11:4 1 PM ECONOMIC FORECASTER Rule Out COVID-19 11/10/2022 11/10/2022 11/11/2022 12:17 PM CDT Rule Out COVID-19 03/07/2023 03/07/2023 03/07/2023 1:20 PM CDT Rule Out COVID-19 12/26/2023 12/26/2023 12/26/2023 9:50 AM CDT Rule Out COVID-19 04/09/2024 04/09/2024 04/10/2024 6:48 PM CDT Assessment Noted Time PHQ-9 Depression Total Score: 2 04/02/20 21 10:19 AM CDT documented as of this encounter Care Teams Dive Supervisor Relationship Specialty Start Date End Date Marija Edgar APRN CNP PCP - General Nurse Practitioner 04/30/20 04/14/23 Esha Grimm PA-C [address] [place] [address] PCP - General Family Medicine 05/04/23 Lita Oseguera Personal Advocate & Liaison (PAL) 02/28/20 03/27/23 Marija Edgar APRN ENGINEERING PROJECT MANAGER Assigned PCP 06/08/20 04/29/23 Mynor Broussard MD 6363 [facility] 500 [place], [place] [address] Assigned Surgical Provider 06/01/20 11/28/21 Keisha Dotson MD 909 [place], [place] 130275 Assigned Neuroscience Provider 06/04/20 04/01/23 Galo Burrell MD Assigned Heart and Vascular Provider 10/05/20 04/02/22 Diana Desir, [facility] 30[address] [place] [address] Pharmacist Pharmacist 04/17/21 Rain Galaviz PA-C [address] [place] [address] [address] [place] [address] Physician Production Control Specialist Dermatology 04/28/21 Summer Lara MD [address] [place] [address] Assigned OBGYN Provider 05/31/21 2 Tavia Wyatt MD [address] [place] [address] Dermatology 07/14/21 Johnny Murillo MD [address] [place] [address] Assigned Musculoskeletal Provider 08/30/21 03/17/22 Erica Farrell APRN ENGINEERING PROJECT MANAGER [address] [place] [address] Nurse Practitioner Cardiovascular Disease 09/09/21 Tavia Wyatt MD [address] [place] [address] Assigned Surgical Provider 11/29/21 05/07/22 [facility] 30[address] [place] [address] Assigned MTM Pharmacist 01/02/22 Rich Barrett MD 516 [facility] 9A [place], [place] 7[address] Physician Ophthalmology 01/21/22 Neil Kent MD 500 [place], [place] 394365 Dermatology 02/24/22 Roney Story DPM [address] [facility] [address] [place], [place] [address] Assigned Musculoskeletal Provider 03/20/22 08/13/22 Erica Farrell APRN ENGINEERING PROJECT MANAGER [address] [place] [address] Assigned Heart and Vascular Provider 04/03/22 04/16/22 Diana Desir, [facility] [address] [place] [address] Assigned MTM Pharmacist 04/07/22 Jelena David OD [address] [place] [address] Assigned Surgical Provider 05/08/22 10/08/22 Galo Burrell MD Assigned Heart and Vascular Provider 04/17/22 06/11/22 Livan Sharif MD [address] [place] [address] Cardiovascular Disease 05/14/22 Livan Sharif MD [address] [place] [address] Assigned Heart and Vascular Provider 06/12/22 07/23/22 Catherine Cm MD [address] [place] [address] Cardiovascular Disease 07/21/22 Valery Veronica PAUcheC 9 [place] [address] Physician Production Control Specialist Dermatology 07/21/22 Catherine Cm MD [address] [place] 789765 Assigned Heart and Vascular Provider 07/24/22 11/05/22 Johnny Murillo MD [facility]2 [place] [address] [place] [address] Assigned Musculoskeletal Provider 08/14/22 10/08/22 Brea Quinn APRN ENGINEERING PROJECT MANAGER [address] [place] [address] Nurse Practitioner Dermatology 09/21/22 Brea Quinn APRN ENGINEERING PROJECT MANAGER 6401 [place] [address] Assigned Surgical Provider 10/09/22 05/01/24 [place] [address] [facility] 300 [place] [address] Assigned Musculoskeletal Provider 10/09/22 05/01/24 Livan Sharif MD [address], [facility] [address] [place] [address] Assigned Heart and Vascular Provider 11/06/22 11/12/22 Catherine Cm MD [address] [facility] [address] [place] [address] Assigned Heart and Vascular Provider 11/13/22 05/27/23 Sydnie Martinez RN Personal Advocate & Liaison (PAL) Family Medicine 03/28/23 07/31/23 Alfonso Renteria MD 5775 [facility] 200 [place] [address] Assigned Neuroscience Provider 04/02/23 Cheng Todd PA-C [address] [place] [address] Assigned PCP 04/30/23 07/15/23 Radha Lomeli APRN ENGINEERING PROJECT MANAGER 6405 [facility] [address] [place] [address] Assigned Heart and Vascular Provider 05/28/23 Jelena David OD [address] [place] [address] MD Ophthalmology 06/15/23 Pao Joseph, VJ Personal Advocate & Liaison (PAL) Nurse 08/01/23 11/07/23 Esha Grimm PA-C [address] [place] [address] Assigned PCP 07/16/23 Valery Veronica PA-C [address] [place] [address] Physician Production Control Specialist Dermatology 09/19/23 Rey Tay MD [address] [place] [address] Gastroenterology 09/20/23 Rocky Zepeda DO [address] [place] [address] 842715 Physician Gastroenterology 09/20/23 Philip Dumont MD [address] [place] [address] 492525 Physician Ophthalmology 09/22/23 Meredith Carrera PA-C [address] [place] [address] Assigned Gastroenterology Provider 11/01/23 Neil Kent MD [address] [address] Dermatology 11/02/23 [place] [address] 026477 Neurological Surgery 12/26/23 Audrey Waite PA-C [address] [place] [address] Physician Production Control Specialist Dermatology 02/28/24 Valery Veronica PA-C 449051 [place] [address] Physician Production Control Specialist Dermatology 04/10/24 Herminia Hatch MD [facility]5 [place], [place] [address] Assigned Rheumatology Provider 07/02/24 documented as of this encounter
--- OUTSIDE RECORDS SUMMARY | 2024-07-22 20:46 | XMS_ITS | Encounter Summary ---
Author Organization [facility] Address [address] [place] [address] Care Team Providers Care Comber Operator Name Role Phone Lita Oseguera Unavailable Unavailable Marija Edgar BLENDING TANK TENDER INDUCTION HEAT TREATER Primary Care Provider + Chanelle Mccann BLENDING TANK TENDER CNM Unavailab le Marija Edgar APRN INDUCTION HEAT TREATER Unavailable [phone] Mynor Broussard MD Unavailable [phone] Keisha Dotson MD Unavailable Galo Burrell MD Unavailable Unavailable Diana Desir [facility] Unavailable [phone] Rain Galaviz PA-C Unavailable [phone] Summer Lara MD Unavailable [phone] Summer Lara MD Unavailable [phone] Summer Lara MD Unavailable [phone] Tavia Wyatt MD Unavailable Johnny Murillo MD Unavailable Erica Farrell BLENDING TANK TENDER INDUCTION HEAT TREATER Unavailable Teresita Bean [facility] Unavailable [phone] Tavia Wyatt MD Unavailable DesirDiana [facility] Unavailable [phone] Rich Barrett MD Unavailable [phone] Neil Kent MD Unavailable Roney StoryM Unavailable [phone] Erica Farrell APRN INDUCTION HEAT TREATER Unavailable + Diana Desir [facility] Unavailable [phone] Jelena David OD Unavailable Galo Burrell MD Unavailable Unavailable Livan Sharif MD Unavailable + Livan Sharif MD Unavailable + Catherine Cm MD Unavailable + Valery VeronicaC Unavailable [phone] Catherine Cm MD Unavailable + Johnny Murillo MD Unavailable [phone] Brea Quinn BLENDING TANK TENDER INDUCTION HEAT TREATER Unavailable [phone] Brea Quinn BLENDING TANK TENDER INDUCTION HEAT TREATER Unavailable [phone] Jose Francisco Johnson MD Unavailable Livan Sahrif MD Unavailable + Catherine Cm MD Unavailable + Sydnie Martinez RN Unavailable Unavailable Alfonso Renteria MD Unavailable [phone] Esha GrimmC Primary Care Provider Cheng Todd PA-C Unavailable [phone] Radha Lomeli APRN INDUCTION HEAT TREATER Unavailable [phone] Jelena David OD Unavailable Jake, Pao RN Unavailable Unavailable Alfa, Esha M PA-C Unavailable [phone] Valery VeronicaC Unavailable [phone] Rey Tay MD Unavailable Duane Rockyanne STEVENS Unavailable Philip Dumont MD Unavailable Meredith Carrera PA-C Unavailable Neil Kent MD Unavailable Juan Pablo Emmanuel MD Unavailable [phone] Audrey Waite PA-C Unavailable [phone] Valery Veronica PA-C Unavailable [phone] Herminia Hatch MD Unavailable Encounter Details Date Type Department Care Team (Late st Contact Info) Description 04/28/2021 [facility] [address] [address] Marija Edgar APRN INDUCTION HEAT TREATER [facility]0 [place] [address] Social History Tobacco Use Types [...] do you attend [facility] or scientology services? More than 4 times [...] 0 04/02/2021 [facility] Occupat iontn Health - Occupational Stress Questionnaire Answer Date [...] in a fdc (including now)? No 08/11/2020 [place] Depression Scale Answer Date Recorded [place] Depression Score 5 01/14/2021 Last EPDS Self Harm Result Not on file 01/14 Education Answer Date Recorded What is the highest level of school you have completed or the highest degree you have received? 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 LOBSTER FISHERMAN Gender Identity Female 03/02/2021 5:45 PM CDT [...] Description 10/23/2024 9:30 AM CDT Office Visit [facility] Neurology [facility] - [address], [address] [place] [address] [place] [address] [place] [address] 178427 Johnny Penn MD [address] [place] 749855 11/28/2024 7:45 AM CDT Virtual Visit [facility] Gastroenterology Clinic [address] 4th [place] [address] Meredith Carrera PA-C [address] [place] [address] documented as of this encounter Visit Diagnoses Not on filedocumented in this encounter Additional Health Concerns Infection Onset Date Last Indicated Resolved Time Rule Out COVID-19 05/11/2021 05/11/2021 05/13/2021 10:18 AM CDT Rule Out COVID-19 07/13/2021 07/13/2021 07/14/2021 3:04 PM LOBSTER FISHERMAN Rule Out COVID-19 07/18/2021 07/18/2021 07/20/2021 1:56 PM LOBSTER FISHERMAN COVID-19 07/18/2021 07/18/2021 08/08/2021 11:3 9 PM LOBSTER FISHERMAN Rule Out COVID-19 12/18/2021 12/18/2021 12/19/2021 11:34 AM CDT Rule Out COVID-19 02/24/2022 02/24/2022 02/25/2022 1:08 PM CDT Rule Out COVID-19 04/26/2022 04/26/2022 04/26/2022 6:47 AM CDT Rule Out COVID-19 05/17/2022 05/17/2022 05/17/2022 10:20 PM LOBSTER FISHERMAN Rule Out COVID-19 06/09/2022 06/09/2022 06/09/2022 9:35 AM LOBSTER FISHERMAN COVID-19 06/09/2022 06/09/2022 06/30/2022 11:4 1 PM LOBSTER FISHERMAN Rule Out COVID-19 11/10/2022 11/10/2022 11/11/2022 12:17 PM CDT Rule Out COVID-19 03/07/2023 03/07/2023 03/07/2023 1:20 PM CDT Rule Out COVID-19 12/26/2023 12/26/2023 12/26/2023 9:50 AM CDT Rule Out COVID-19 04/09/2024 04/09/2024 04/10/2024 6:48 PM CDT Assessment Noted Time PHQ-9 Depression Total Score: 2 04/02/20 10:19 AM CDT documented as of this encounter Care Teams Comber Operator Relationship Specialty Start Date End Date Marija Edgar APRN INDUCTION HEAT TREATER PCP - General Nurse Practitioner 04/30/20 04/14/23 Esha Grimm PA-C [address] [place] [address] PCP - General Family Medicine 05/04/23 Lita Oseguera Personal Advocate & Liaison (PAL) 02/28/20 03/27/23 [place] [address] [place] [address] 200 [place] [address] Assigned OBGYN Provider 05/02/2005/09 Marija Edgar APRN INDUCTION HEAT TREATER Assigned PCP 06/08/20 04/29/23 Mynor Broussard MD 6363 [facility] 500 [place] [address] Assigned Surgical Provider 06/01/20 11/28/21 Keisha Dotson MD 909 [place] [address] Assigned Neuroscience Provider 06/04/20 04/01/23 Galo Burrell MD Assigned Heart and Vascular Provider 10/05/20 04/02/22 Diana Desir, [facility] [address] [place] [address] Pharmacist Pharmacist 04/17/21 Rain Galaviz PA-C [address] [place] [address] [place] [address] Physician Agricultural Lender Dermatology 04/28/21 Summer Lara MD [address] [place] [address] 319894 Assigned OBGYN Provider 05/10/2105/23 Summer Lara MD [address] [place] [address] 848254 Assigned OBGYN Provider 05/31/21 2 Summer Lara MD [address] [place] [address] Assigned OBGYN Provider 05/24/2105/30 Tavia Wyatt MD [address] [place] [address] 319224 Dermatology 07/14/21 Johnny Murillo MD [facility] [address] [place], [place] 6579[address] Assigned Musculoskeletal Provider 08/30/21 03/17/22 Erica Farrell APRN INDUCTION HEAT TREATER 6405 [facility] [address] [place] [address] Nurse Practitioner Cardiovascular Disease 09/09/21 Teresita Bean, [facility] [address] [place] [phone] Pharmacist Pharmacist 09/24/21 09/29/21 Tavia Wyatt MD [address] [place] [address] Assigned Surgical Provider 11/29/21 05/07/22 [facility] 3033 [place] [address] Assigned MTM Pharmacist 01/02/22 Rich Barrett MD [address] 8100[address] Physician Ophthalmology 01/21/22 Neil Kent MD 500 [place] [address] Dermatology 02/24/22 Roney Story DPM [address] [facility] [address] [place], [place] 947[address] Assigned Musculoskeletal Provider 03/20/22 08/13/22 Erica Farrell APRN INDUCTION HEAT TREATER 1700 [place] [address] Assigned Heart and Vascular Provider 04/03/22 04/16/22 Diana Desir, [facility] 3033 [place] [address] Assigned MTM Pharmacist 04/07/22 Jelena David OD [address] [facility] [place] [address] Assigned Surgical Provider 05/08/22 10/08/22 Galo Burrell MD Assigned Heart and Vascular Provider 04/17/22 06/11/22 Livan Sharif MD [address] [place] 7[address] Cardiovascular Disease 05/14/22 Livan Sharif MD [address] [place] 214685 Assigned Heart and Vascular Provider 06/12/22 07/23/22 Catherine Cm MD [address] [place] [address] Cardiovascular Disease 07/21/22 Valery Veronica PA-C 909 [place], [place] 698935 Physician Agricultural Lender Dermatology 07/21/22 Catherine Cm MD [address] [place] 300965 Assigned Heart and Vascular Provider 07/24/22 11/05/22 Johnny Murillo MD [address] [facility] [address] [place] [address] Assigned Musculoskeletal Provider 08/14/22 10/08/22 Brea Quinn APRN INDUCTION HEAT TREATER 500 [place], [place] 789[address] Nurse Practitioner Dermatology 09/21/22 Brea Quinn APRN INDUCTION HEAT TREATER 6401 [facility] [place] 765882 Assigned Surgical Provider 10/09/22 05/01/24 [place] [address] 291247 Assigned Musculoskeletal Provider 10/09/22 05/01/24 Livan Sharif MD [address], [facility] [address] [place] [address] Assigned Heart and Vascular Provider 11/06/22 11/12/22 Catherine Cm MD [address] [facility] [address] [place] [address] Assigned Heart and Vascular Provider 11/13/22 05/27/23 Sydnie Martinez, VJ Personal Advocate & Liaison (PAL) Family Medicine 03/28/23 07/31/23 Alfonso Renteria MD [address] [facility] 200 [place], [place] 803666 Assigned Neuroscience Provider 04/02/23 Cheng Todd PA-C [address] [place] [address] Assigned PCP 04/30/23 07/15/23 Radha Lomeli APRN INDUCTION HEAT TREATER 6405 [facility] [address] [place] [address] Assigned Heart and Vascular Provider 05/28/23 Jelena David OD [address] [facility] [place] [address] Ophthalmology 06/15/23 Pao Joseph, VJ Personal Advocate & Liaison (PAL) Nurse 08/01/23 11/07/23 Esha Grimm PA-C [address] [place] [address] Assigned PCP 07/16/23 Valery Veronica PA-C [address] [place] [address] 458395 Physician Agricultural Lender Dermatology 09/19/23 Rey Tay MD [address] [place] [address] 479655 Gastroenterology 09/20/23 Rocky Zeepda DO [address] [place] [address] 979645 Physician Gastroenterology 09/20/23 Philip Dumont MD [address] [place] [address] 129715 Physician Ophthalmology 09/22/23 Meredith Carrera PA-C 909 [place] [address] Assigned Gastroenterology Provider 11/01/23 Neil Kent MD [address] [place] [address] Dermatology 11/02/23 [place] [address] [place] [address] [address] 491117 Neurological Surgery 12/26/23 Audrey Waite PA-C 500 [place] [address] Physician Agricultural Lender Dermatology 02/28/24 Valery Veronica PA-C [address] [place] [address] Physician Agricultural Lender Dermatology 04/10/24 Herminia Hatch MD [facility]5 [place], [place] [address] Assigned Rheumatology Provider 07/02/24 documented as of this encounter
--- OUTSIDE RECORDS SUMMARY | 2024-07-22 20:46 | XMS_ITS | Encounter Summary ---
Author Organization [facility] Address [address] [place] [address] Care Team Providers Care Riprap Man Name Role Phone Lita Oseguera Unavailable Unavailable Marija Edgar AIR CONDITIONING INSULATION INSTALLER COIL REPAIR TECHNICIAN Primary Care Provider + Chanelle Mccann AIR CONDITIONING INSULATION INSTALLER CNM Unavailab le Marija Edgar APRN COIL REPAIR TECHNICIAN Unavailable Mynor Broussard MD Unavailable [phone] Keisha Dotson MD Unavailable Galo Burrell MD Unavailable Unavailable Diana Desir [facility] Unavailable Rain Galaviz PA-C Unavailable Summer Lara MD Unavailable [phone] Summer Lara MD Unavailable [phone] Summer Lara MD Unavailable [phone] Tavia Wyatt MD Unavailable Johnny Murillo MD Unavailable Erica Farrell AIR CONDITIONING INSULATION INSTALLER COIL REPAIR TECHNICIAN Unavailable Teresita Bean [facility] Unavailable [phone] Tavia Wyatt MD Unavailable DesirDiana [facility] Unavailable [phone] Rich Barrett MD Unavailable [phone] Neil Kent MD Unavailable Roney StoryM Unavailable [phone] Erica Farrell APRN COIL REPAIR TECHNICIAN Unavailable + Diana Desir [facility] Unavailable [phone] Jelena David OD Unavailable Galo Burrell MD Unavailable Unavailable Livan Sharif MD Unavailable + Livan Sharif MD Unavailable + Catherine Cm MD Unavailable + Valery VeronicaC Unavailable [phone] Catherine Cm MD Unavailable + Johnny Murillo MD Unavailable [phone] Brea Quinn AIR CONDITIONING INSULATION INSTALLER COIL REPAIR TECHNICIAN Unavailable [phone] Brea Quinn AIR CONDITIONING INSULATION INSTALLER COIL REPAIR TECHNICIAN Unavailable [phone] Jose Francisco Johnson MD Unavailable Livan Sharif MD Unavailable + Catherine Cm MD Unavailable + Sydnie Martinez RN Unavailable Unavailable Alfonso Renteria MD Unavailable [phone] Esha GrimmC Primary Care Provider Cheng Todd PA-C Unavailable [phone] Radha Lomeli APRN COIL REPAIR TECHNICIAN Unavailable [phone] Jelena David OD Unavailable Jake, Pao RN Unavailable Unavailable Alfa, Esha M PA-C Unavailable [phone] Valery Veronica PA-C Unavailable Rey Tay MD Unavailable Duane Rockyanne STEVENS Unavailable Philip Dumont MD Unavailable [phone] Meredith Carrera PA-C Unavailable [phone] Neil Kent MD Unavailable Juan Pablo Emmanuel MD Unavailable [phone] Audrey Waite PA-C Unavailable [phone] Valery Veronica PA-C Unavailable [phone] Herminia Hatch MD Unavailable Encounter Details Date Type Department Care Team (Late st Contact Info) Description 05/05/2021 MyC Medical Advice [address] [address] Lauren Gna RN Social History Tobacco Use Types Packs/Day [...] you attend chur ch or restorationism services? More than 4 times [...] Score 0 04/02/2021 [facility] [...] in a custodial (including now)? No 08/11/2020 Hume Depression Scale Answer Date Recorded Hume Depression Score 5 01/14/2021 Last EPDS Self Harm Result Not on file 01/14 Education Answer Date Recorded What is the highest level of school you have completed or the highest degree you have received? 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 RFID SYSTEMS ARCHITECT Gender Identity Female 03/02/2021 5:45 PM CDT [...] 9:30 AM CDT Office Visit [facility] Neurology [address], [address] [place] [address] [place] [address] [place] [address] IsamarJohnny mead MD [address] [place] [address] 11/28/2024 7:45 AM CDT Virtual Visit [facility] Gastroenterology Clinic [address] 4th [place] [phone] Meredith Carrera PA-C [address] [place] [address] [phone] documented as of this encounter Visit Diagnoses Not on filedocumented in this encounter Additional Health Concerns Infection Onset Date Last Indicated Resolved Time Rule Out COVID-19 05/11/2021 05/11/2021 05/13/2021 10:18 AM CDT Rule Out COVID-19 07/13/2021 07/13/2021 07/14/2021 3:04 PM RFID SYSTEMS ARCHITECT Rule Out COVID-19 07/18/2021 07/18/2021 07/20/2021 1:56 PM RFID SYSTEMS ARCHITECT COVID-19 07/18/2021 07/18/2021 08/08/2021 11:3 9 PM RFID SYSTEMS ARCHITECT Rule Out COVID-19 12/18/2021 12/18/2021 12/19/2021 11:34 AM CDT Rule Out COVID-19 02/24/2022 02/24/2022 02/25/2022 1:08 PM CDT Rule Out COVID-19 04/26/2022 04/26/2022 04/26/2022 6:47 AM CDT Rule Out COVID-19 05/17/2022 05/17/2022 05/17/2022 10:20 PM RFID SYSTEMS ARCHITECT Rule Out COVID-19 06/09/2022 06/09/2022 06/09/2022 9:35 AM RFID SYSTEMS ARCHITECT COVID-19 06/09/2022 06/09/2022 06/30/2022 11:4 1 PM RFID SYSTEMS ARCHITECT Rule Out COVID-19 11/10/2022 11/10/2022 11/11/2022 12:17 PM CDT Rule Out COVID-19 03/07/2023 03/07/202303/0703/07/2023 1:20 PM CDT Rule Out COVID-19 12/26/2023 12/26/2023 12/26/2023 9:50 AM CDT Rule Out COVID-19 04/09/2024 04/09/2024 04/10/2024 6:48 PM CDT Assessment Noted Time PHQ-9 Depression Total Score: 2 04/02/20 10:19 AM CDT documented as of this encounter Care Teams Riprap Man Relationship Specialty Start Date End Date Marija Edgar APRN COIL REPAIR TECHNICIAN PCP - General Nurse Practitioner 04/30/20 04/14/23 Esha Grimm PA-C [address] [place] [address] PCP - General Family Medicine 05/04/23 Lita Oseguera Personal Advocate & Liaison (PAL) 02/28/20 03/27/23 [place] [address] [place] [address] 200 [place], [place] 519367 Assigned OBGYN Provider 05/02/2005/09 Marija Edgar APRN COIL REPAIR TECHNICIAN Assigned PCP 06/08/20 04/29/23 Mynor Broussard MD 6363 [facility] 500 [place], [place] 785495 Assigned Surgical Provider 06/01/20 11/28/21 Keisha Dotson MD 909 [place], [place] 490085 Assigned Neuroscience Provider 06/04/20 04/01/23 Galo Burrell MD Assigned Heart and Vascular Provider 10/05/20 04/02/22 Diana Desir, [facility] 3033 [place] [address] Pharmacist Pharmacist 04/17/21 Rain Galaviz PA-C [address] [place] [address] [place] [address] Physician Dental Associate Dermatology 04/28/21 Summer Lara MD [address] [place] [address] Assigned OBGYN Provider 05/10/2105/23 Summer Lara MD [address] [place], [place] 504864 Assigned OBGYN Provider 05/31/21 2 Summer Lara MD [address] [place], [place] 001464 Assigned OBGYN Provider 05/24/2105/30 Tavia Wyatt MD [address] [place], [place] [address] Dermatology 07/14/21 Johnny Murillo MD [address] [facility] [address] [place] [address] Assigned Musculoskeletal Provider 08/30/21 03/17/22 Erica Farrell APRN COIL REPAIR TECHNICIAN 6[address] [facility] [address] [place], [place] [address] Nurse Practitioner Cardiovascular Disease 09/09/21 Teresita Bean [facility] [address] [facility] [address] Pharmacist Pharmacist 09/24/21 09/29/21 Tavia Wyatt MD [address] [place] [address] Assigned Surgical Provider 11/29/21 05/07/22 Diana Desir, [facility] 30[address] [place] [address] Assigned MTM Pharmacist 01/02/22 Rich Barrett MD [address] 713595 Physician Ophthalmology 01/21/22 eNil Kent MD 500 [place], [place] 834465 Dermatology 02/24/22 Roney Story DPM [address] [facility] [address] [place] [address] Assigned Musculoskeletal Provider 03/20/22 08/13/22 Erica Farrell APRN COIL REPAIR TECHNICIAN 1700 [place] [address] Assigned Heart and Vascular Provider 04/03/22 04/16/22 Diana Desir, [facility] [address] [place], [place] 792416 Assigned MTM Pharmacist 04/07/22 Frankie Jelena GarciaSONJA [address] [place] [address] Assigned Surgical Provider 05/08/22 10/08/22 Galo Burrell MD Assigned Heart and Vascular Provider 04/17/22 06/11/22 Livan Sharif MD [address] [place] 9[address]605 Cardiovascular Disease 05/14/22 Livan Sharif MD [address] [place] 738225 Assigned Heart and Vascular Provider 06/12/22 07/23/22 Catherine Cm MD [address] [place] 592425 Cardiovascular Disease 07/21/22 Valery Veronica, PA-C 909 [place], [place] 1418[address] Physician Dental Associate Dermatology 07/21/22 Catherine Cm MD [address] [place] 730665 Assigned Heart and Vascular Provider 07/24/22 11/05/22 Johnny Murillo MD [facility] [address] [place] [address] Assigned Musculoskeletal Provider 08/14/22 10/08/22 Brea Quinn APRN COIL REPAIR TECHNICIAN [address] [place] [address] Nurse Practitioner Dermatology 09/21/22 Brea Quinn APRN COIL REPAIR TECHNICIAN 6401 [place] [address] Assigned Surgical Provider 10/09/22 05/01/24 [place] [address] [address] Assigned Musculoskeletal Provider 10/09/22 05/01/24 Livan Sharif MD [address] [place] [address] Assigned Heart and Vascular Provider 11/06/22 11/12/22 Catherine Cm MD 6[address] [facility]00 [place], [place] 454645 Assigned Heart and Vascular Provider 11/13/22 05/27/23 Sydnie Martinez RN Personal Advocate & Liaison (PAL) Family Medicine 03/28/23 07/31/23 Alfonso Renteria MD 5775 [facility] 200 [place] [address] Assigned Neuroscience Provider 04/02/23 Cheng Todd PA-C [address] [place] [address] [id number] Assigned PCP 04/30/23 07/15/23 Radha Lomeli APRN CNP 6[address] [facility] [address] [place] [address] Assigned Heart and Vascular Provider 05/28/23 Jelena David OD [address] [place] [address] MD Ophthalmology 06/15/23 Pao Joseph, VJ Personal Advocate & Liaison (PAL) Nurse 08/01/23 11/07/23 Esha Grimm PA-C [address] [place] [phone] Assigned PCP 07/16/23 Valery Veronica PA-C [address] [place] [address] Physician Dental Associate Dermatology 09/19/23 Rey Tay MD [address] [place] [address] MD Gastroenterology 09/20/23 Rocky Zepeda DO [address] [place] [address] 072605 Physician Gastroenterology 09/20/23 Philip Dumont MD [address] [place] [address] 286195 Physician Ophthalmology 09/22/23 Meredith Carrera PA-C [address] [place] [address] 067995 Assigned Gastroenterology Provider 11/01/23 Neil Kent MD [address] [address] Dermatology 11/02/23 [place] [address] 473787 Neurological Surgery 12/26/23 Audrey Waite PA-C 500 [place] [address] Physician Dental Associate Dermatology 02/28/24 Valery Veronica PA-C [address]212 [address] [place] [address] Physician Dental Associate Dermatology 04/10/24 Herminia Hatch MD [facility]5 [place], [place] [address] Assigned Rheumatology Provider 07/02/24 documented as of this encounter
--- OUTSIDE RECORDS SUMMARY | 2024-07-22 20:46 | XMS_ITS | Encounter Summary ---
Author Organization [facility] Address [address] [place] [address] Care Team Providers Care Intensive Care Ambulance Paramedic Name Role Phone Lita Oseguera Unavailable Unavailable Marija Edgar APRN ASSEMBLER WET WASH Primary Care Provider + Marija Edgar APRN ASSEMBLER WET WASH Unavailable Mynor Broussard MD Unavailable [phone] Keisha Dotson MD Unavailable Galo Burrell MD Unavailable Unavailable Diana Desir [facility] Unavailable Rain Galaviz PA-C Unavailable [phone] Summer Lara MD Unavailable [phone] Tavia Wyatt MD Unavailable Johnny Murillo MD Unavailable [phone] Erica Farrell APRN ASSEMBLER WET WASH Unavailable Teresita Bean [facility] Unavailable [phone] Tavia Wyatt MD Unavailable Diana Desir [facility] Unavailable [phone] Rich Barrett MD Unavailable [phone] Neil Kent MD Unavailable Roney Story DPM Unavailable Erica Farrell MAT MAKER ASSEMBLER WET WASH Unavailable Thang Diana Stanislav [facility] Unavailable Jelena David OD Unavailable [phone] Galo Burrell MD Unavailable Unavailable Livan Sharif MD Unavailable + Livan Sharif MD Unavailable + Catherine Cm MD Unavailable + Valery Veronica PA-C Unavailable [phone] Catherine Cm MD Unavailable + Jonhny Murillo MD Unavailable [phone] Brea Quinn MAT MAKER ASSEMBLER WET WASH Unavailable [phone] Brea Quinn MAT MAKER ASSEMBLER WET WASH Unavailable [phone] Jose Francisco Johnson MD Unavailable Livan Sharif MD Unavailable + IsCatherine hobbs MD Unavailable + Sydnie Martinez RN Unavailable Unavailable Alfonso Renteria MD Unavailable Esha Grimm-C Primary Care Provider Cheng Todd PA-C Unavailable Radha Lomeli MAT MAKER ASSEMBLER WET WASH Unavailable [phone] Jelena David OD Unavailable [phone] Pao Joseph RN Unavailable Unavailable Esha Grimm-C Unavailable [phone] JeremíasValery damon PA-C Unavailable [phone] Rey Tay MD Unavailable Rocky Zepeda DO Unavailable Philip Dumont MD Unavailable [phone] Meredith CarreraC Unavailable [phone] Neil Kent MD Unavailable Juan Pablo Emmanuel MD Unavailable [phone] Audrey WaiteC Unavailable [phone] Valery Veronica PA-C Unavailable [phone] Herminia Hatch MD Unavailable Encounter Details Date [...] do you attend [facility] or taoism services? More than 4 times [...] in a fpc (including now)? No 08/11/2020 [place]shaw Depression Scale Answer Date Recorded [place] Depression Score 5 01/14/2021 Last EPDS Self Harm Result Not on file 01/14 Education Answer Date Recorded What is the highest level of school you have completed or the highest degree you have received? 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 WASHER MEAT Gender Identity Female 03/02/2021 5:45 PM CDT Sexual Orientation Straight 02/28/2020 12 :51 AM CDT COVID-19 Exposure Response Date Recorded In the last month, have you been in contact with someone who was confirmed or suspected to have Coronavirus / COVID-19? No / Unsure 08/03/2021 2:24 PM WASHER MEAT documented as of this encounter Plan of Treatment Upcoming Encounters Date Type Department Care Team (Late st Contact Info) Description 10/23/2024 9:30 AM CDT Office Visit [facility] Neurology [address], [address] [place] [address] [place] [address] [place], [place] [address] Johnny Penn MD 0178 [facility] [place] [id number] 11/28/2024 7:45 AM CDT Virtual Visit [facility] Gastroenterology Clinic [address] 4th [place] [address] Meredith Carrera PAUcheC 619 [place] [address] documented as of this encounter Visit Diagnoses Not on filedocumented in this encounter Additional Health Concerns Infection Onset Date Last Indicated Resolved Time COVID-19 07/18/2021 07/18/2021 08/08/2021 11:3 9 PM WASHER MEAT Rule Out COVID-19 12/18/2021 12/18/2021 12/19/2021 11:34 AM CDT Rule Out COVID-19 02/24/2022 02/24/2022 02/25/2022 1:08 PM CDT Rule Out COVID-19 04/26/2022 04/26/2022 04/26/2022 6:47 AM CDT Rule Out COVID-19 05/17/2022 05/17/2022 05/17/2022 10:20 PM WASHER MEAT Rule Out COVID-19 06/09/2022 06/09/2022 06/09/2022 9:35 AM WASHER MEAT COVID-19 06/09/2022 06/09/2022 06/30/2022 11:4 1 PM WASHER MEAT Rule Out COVID-19 11/10/2022 11/10/2022 11/11/2022 12:17 PM CDT Rule Out COVID-19 03/07/2023 03/07/2023 03/07/2023 1:20 PM CDT Rule Out COVID-19 12/26/2023 12/26/2023 12/26/2023 9:50 AM CDT Rule Out COVID-19 04/09/2024 04/09/2024 04/10/2024 6:48 PM CDT Assessment Noted Time PHQ-9 Depression Total Score: 2 04/02/20 21 10:19 AM CDT documented as of this encounter Care Teams Intensive Care Ambulance Paramedic Relationship Specialty Start Date End Date Marija Edgar APRN CNP PCP - General Nurse Practitioner 04/30/20 04/14/23 Esha Grimm PA-C [address] [place] [address] PCP - General Family Medicine 05/04/23 Lita Oseguera Personal Advocate & Liaison (PAL) 02/28/20 03/27/23 Marija Edgar APRN ASSEMBLER WET WASH Assigned PCP 06/08/20 04/29/23 Mynor Broussard MD [address] 280[address] Assigned Surgical Provider 06/01/20 11/28/21 Keisha Dotson MD 909 [place], [place] [address]15 Assigned Neuroscience Provider 06/04/20 04/01/23 Galo Burrell MD Assigned Heart and Vascular Provider 10/05/20 04/02/22 [facility] 3033 [place] [address] Pharmacist Pharmacist 04/17/21 Rain Galaviz PA-C [address] [place] [address] [address] [place] [address] Physician Fruit Washer Dermatology 04/28/21 Summer Lara MD [address] [place] [address] Assigned OBGYN Provider 05/31/21 2 Tavia Wyatt MD [address] [place] [address] Dermatology 07/14/21 Johnny Murillo MD [address] [place] [address] Assigned Musculoskeletal Provider 08/30/21 03/17/22 Erica Farrell APRN ASSEMBLER WET WASH 6405 [facility] [address] [place] [address] Nurse Practitioner Cardiovascular Disease 09/09/21 Teresita Bean [facility] [address] [facility] [place], [place] [phone] Pharmacist Pharmacist 09/24/21 09/29/21 Tavia Wyatt MD [address] [place] [address] Assigned Surgical Provider 11/29/21 05/07/22 [facility] 30[address] [place] [address] Assigned MTM Pharmacist 01/02/22 Rich Barrett MD 516 [facility] 9[address] [place], [place] [address] Physician Ophthalmology 01/21/22 Neil Kent MD 500 [place], [place] 333945 Dermatology 02/24/22 [place]oney Story DPM [address] [facility] 300 [place] [address] Assigned Musculoskeletal Provider 03/20/22 08/13/22 Erica Farrell APRN ASSEMBLER WET WASH 1700 [place] [address] Assigned Heart and Vascular Provider 04/03/22 04/16/22 [facility] 3033 [place] [address] Assigned MTM Pharmacist 04/07/22 Jelena David OD [address] [facility] [address] Assigned Surgical Provider 05/08/22 10/08/22 Galo Burrell MD Assigned Heart and Vascular Provider 04/17/22 06/11/22 Livan Sharif MD [address] [place] [address] Cardiovascular Disease 05/14/22 Livan Sharif MD [address] [place] [address] Assigned Heart and Vascular Provider 06/12/22 07/23/22 Catherine Cm MD [address] [place] 697045 Cardiovascular Disease 07/21/22 Valery Veronica PA-C 909 [place] [address] Physician Fruit Washer Dermatology 07/21/22 Catherine Cm MD [address] [place] [address] [place] [address] Assigned Heart and Vascular Provider 07/24/22 11/05/22 Johnny Murillo MD [address] [place] [address] 217924 Assigned Musculoskeletal Provider 08/14/22 10/08/22 Brea Quinn APRN ASSEMBLER WET WASH [address] [place] [address] 532535 Nurse Practitioner Dermatology 09/21/22 Brea Quinn APRN ASSEMBLER WET WASH [address] [place] [address] [place] [address] Assigned Surgical Provider 10/09/22 05/01/24 [place] [address] [place] [address] Assigned Musculoskeletal Provider 10/09/22 05/01/24 Livan Sharif MD [address] [place] [address] [place] [address] Assigned Heart and Vascular Provider 11/06/22 11/12/22 Catherine Cm MD [address] [place] [address] [place] [address] Assigned Heart and Vascular Provider 11/13/22 05/27/23 Sydnie Martinez RN Personal Advocate & Liaison (PAL) Family Medicine 03/28/23 07/31/23 Alfonso Renteria MD [address] [facility] [address] [place] [address] Assigned Neuroscience Provider 04/02/23 Cheng Todd PA-C [address] [place] [address] [id number] Assigned PCP 04/30/23 07/15/23 Radha Lomeli APRN ASSEMBLER WET WASH 6405 [facility] [address] [place], [place] [address] Assigned Heart and Vascular Provider 05/28/23 Jelena David OD [address] [facility] [address] [place] [id number] Ophthalmology 06/15/23 Pao Joseph, VJ Personal Advocate & Liaison (PAL) Nurse 08/01/23 11/07/23 Esha Grimm PA-C [address] [place] [address] Assigned PCP 07/16/23 Valery Veronica PA-C [address] [place] [address] 499795 Physician Fruit Washer Dermatology 09/19/23 Rey Tay MD [address] [place] [address] 492505 Gastroenterology 09/20/23 Rocky Zepeda DO [address] [place] [address] [phone] Physician Gastroenterology 09/20/23 Philip Dumont MD 516 [place] [address] Physician Ophthalmology 09/22/23 Meredith Carrera PA-C [address] [place] [address] 910195 Assigned Gastroenterology Provider 11/01/23 Neil Kent MD [address] [id number] MD Dermatology 11/02/23 [place] [address] 162217 Neurological Surgery 12/26/23 Audrey Waite PA-C 500 [place], [place] 5[address] Physician Fruit Washer Dermatology 02/28/24 Valery Veronica PA-C [address] [place] [address] Physician Fruit Washer Dermatology 04/10/24 Herminia Hatch MD 1875 [place] [address] Assigned Rheumatology Provider 07/02/24 documented as of this encounter
--- OUTSIDE RECORDS SUMMARY | 2024-07-22 20:46 | XMS_ITS | Encounter Summary ---
Author Organization [place] Address [address] [place] [address] Care Team Providers Care Braider Tender Name Role Phone Lita Oseguera Unavailable Unavailable Marija Edgar APRN CLIENT SERVER DEVELOPER Primary Care Provider + Marija Edgar APRN CLIENT SERVER DEVELOPER Unavailable Mynor Broussard MD Unavailable [phone] Keisha Dotson MD Unavailable Galo Burrell MD Unavailable Unavailable Diana Desir [facility] Unavailable [phone] Rain Galaviz PA-C Unavailable Summer Lara MD Unavailable [phone] Tavia Wyatt MD Unavailable Johnny Murillo MD Unavailable [phone] Erica Farrell APRN CLIENT SERVER DEVELOPER Unavailable Teresita Bean [facility] Unavailable Tavia Wyatt MD Unavailable Diana Desir [facility] Unavailable [phone] Rich Barrett MD Unavailable [phone] Neil Kent MD Unavailable Roney Story DPM Unavailable Erica Farrell LEAD RADIATION THERAPIST CLIENT SERVER DEVELOPER Unavailable Thang Diana Stanislav [facility] Unavailable Jelena David OD Unavailable Galo Burrell MD Unavailable Unavailable Livan Sharif MD Unavailable + Livan Sharif MD Unavailable + Catherine Cm MD Unavailable + Valery Veronica PA-C Unavailable [phone] Catherine Cm MD Unavailable + Johnny Murillo MD Unavailable [phone] rBea Quinn LEAD RADIATION THERAPIST CLIENT SERVER DEVELOPER Unavailable [phone] Brea Quinn LEAD RADIATION THERAPIST CLIENT SERVER DEVELOPER Unavailable [phone] Jose Francisco Johnson MD Unavailable Livan Sharif MD Unavailable + IsCatherine hobbs MD Unavailable + Sydnie Martinez RN Unavailable Unavailable Alfonso Renteria MD Unavailable Esha Grimm-C Primary Care Provider Cheng Todd PA-C Unavailable Radha Lomeli LEAD RADIATION THERAPIST CLIENT SERVER DEVELOPER Unavailable [phone] Jelena David OD Unavailable Pao Joseph RN Unavailable Unavailable Esha Grimm-C Unavailable [phone] JeremíasValery damon PA-C Unavailable [phone] Rey Tay MD Unavailable Rocky Zepeda DO Unavailable Philip Dumont MD Unavailable [phone] Meredith CarreraC Unavailable [phone] Neil Kent MD Unavailable Juan Pablo Emmanuel MD Unavailable [phone] Audrey WaiteC Unavailable [phone] Valery VeronicaC Unavailable [phone] Herminia Hatch MD Unavailable Encounter Details Date Type Department Care Team (Late st Contact Info) Description 07/14/2021 MyC Medical Advice [address] [address] Lauren Gan, RN Social History [...] you attend chur ch or jewish services? More than 4 times per year [...] 0 04/02/2021 [facility] - [...] in a longterm (including now)? No 08/11/2020 [place] Depression Scale Answer Date Recorded [place] Depression Score 5 01/14/2021 Last EPDS Self Harm Result Not on file 01/14 Education Answer Date Recorded What is the highest level of school you have completed or the highest degree you have received? 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 WRAPPING MACHINE HELPER Gender Identity Female 03/02/2021 5:45 PM CDT Sexual Orientation Straight 02/28/2020 12 :51 AM CDT COVID-19 Exposure Response Date Recorded In the last month, have you been in contact with someone who was confirmed or suspected to have Coronavirus / COVID-19? Yes 07/15/2021 12:15 PM WRAPPING MACHINE HELPER documented as of this encounter Plan of Treatment Upcoming Encounters Date Type Department Care Team (Late st Contact Info) Description 10/23/2024 9:30 AM CDT Office Visit [facility] [address], [address] [place] [address] [place] [address] [address] [place] [address] Johnny Penn MD [address] [place] [phone] 11/28/2024 7:45 AM CDT Virtual Visit [facility] [address] 4th [place] [phone] Meredith Carrera PA-C [address] [place] [address] documented as of this encounter Visit Diagnoses Not on filedocumented in this encounter Additional Health Concerns Infection Onset Date Last Indicated Resolved Time Rule Out COVID-19 07/13/2021 07/13/2021 07/14/2021 3:04 PM WRAPPING MACHINE HELPER Rule Out COVID-19 07/18/2021 07/18/2021 07/20/2021 1:56 PM WRAPPING MACHINE HELPER COVID-19 07/18/2021 07/18/2021 08/08/2021 11:3 9 PM WRAPPING MACHINE HELPER Rule Out COVID-19 12/18/2021 12/18/2021 12/19/2021 11:34 AM CDT Rule Out COVID-19 02/24/2022 02/24/2022 02/25/2022 1:08 PM CDT Rule Out COVID-19 04/26/2022 04/26/2022 04/26/2022 6:47 AM CDT Rule Out COVID-19 05/17/2022 05/17/2022 05/17/2022 10:20 PM WRAPPING MACHINE HELPER Rule Out COVID-19 06/09/2022 06/09/2022 06/09/2022 9:35 AM WRAPPING MACHINE HELPER COVID-19 06/09/2022 06/09/2022 06/30/2022 11:4 1 PM WRAPPING MACHINE HELPER Rule Out COVID-19 11/10/2022 11/10/2022 11/11/2022 12:17 PM CDT Rule Out COVID-19 03/07/2023 03/07/2023 03/07/2023 1:20 PM CDT Rule Out COVID-19 12/26/2023 12/26/2023 12/26/2023 9:50 AM CDT Rule Out COVID-19 04/09/2024 04/09/2024 04/10/2024 6:48 PM CDT Assessment Noted Time PHQ-9 Depression Total Score: 2 04/02/20 10:19 AM CDT documented as of this encounter Care Teams Braider Tender Relationship Specialty Start Date End Date Marija Edgar APRN CLIENT SERVER DEVELOPER PCP - General Nurse Practitioner 04/30/20 04/14/23 Esha Grimm PA-C [address] [place] [address] PCP - General Family Medicine 05/04/23 Lita Oseguera Personal Advocate & Liaison (PAL) 02/28/20 03/27/23 Marija Edgar APRN CLIENT SERVER DEVELOPER Assigned PCP 06/08/20 04/29/23 Mynor Broussard MD 6[address] [facility] L[address] [address] Assigned Surgical Provider 06/01/20 11/28/21 Keisha Dotson MD 909 [place] [address] Assigned Neuroscience Provider 06/04/20 04/01/23 Galo Burrell MD Assigned Heart and Vascular Provider 10/05/20 04/02/22 Diana Desir, [facility] [address] [place] [address] Pharmacist Pharmacist 04/17/21 Rain Galaviz PA-C [address] [facility] [address] [place] [address] Physician Vice President Of Procurement Dermatology 04/28/21 Summer Lara MD [address] [place], [place] [address] Assigned OBGYN Provider 05/31/21 Tavia Wyatt MD [address] [place], [place] [address] Dermatology 07/14/21 Johnny Murillo MD [address] [place], [place] [address] Assigned Musculoskeletal Provider 08/30/21 03/17/22 Erica Farrell APRN CLIENT SERVER DEVELOPER 6405 [facility] [address] [place], [place] [address] Nurse Practitioner Cardiovascular Disease 09/09/21 Teresita Bean [facility] [address] [place], [place] [phone] Pharmacist Pharmacist 09/24/21 09/29/21 Tavia Wyatt MD [address] [place], [place] [address] Assigned Surgical Provider 11/29/21 05/07/22 Diana Desir, [facility] [address] [place], [place] [address] Assigned MTM Pharmacist 01/02/22 Rich Barrett MD [address] [facility] 9[address] [place], [place] [address] Physician Ophthalmology 01/21/22 Neil Kent MD 500 [place] [address] Dermatology 02/24/22 Roney Story DPM [address] [facility] [address] [place] [address] Assigned Musculoskeletal Provider 03/20/22 08/13/22 Erica Farrell APRN CLIENT SERVER DEVELOPER 1700 [place] [address] Assigned Heart and Vascular Provider 04/03/22 04/16/22 Diana Desir, [facility] [address] [place] [address] Assigned MTM Pharmacist 04/07/22 Jelena David OD [address] [facility] [place] [address] Assigned Surgical Provider 05/08/22 10/08/22 Galo Burrell MD Assigned Heart and Vascular Provider 04/17/22 06/11/22 Livan Sharif MD [address] [place] [address] Cardiovascular Disease 05/14/22 Livan Sharif MD [address] [place] [address] Assigned Heart and Vascular Provider 06/12/22 07/23/22 Catherine Cm MD [address] [place] [address] Cardiovascular Disease 07/21/22 Valery Veronica PA-C [address] [place] [address] Physician Vice President Of Procurement Dermatology 07/21/22 Catherine Cm MD [address] [facility] [address] [facility] [address] [place] [address] Assigned Heart and Vascular Provider 07/24/22 11/05/22 Johnny Murillo MD [address] [place] [address] Assigned Musculoskeletal Provider 08/14/22 10/08/22 Brea Quinn APRN CLIENT SERVER DEVELOPER [address] [place] [address] Nurse Practitioner Dermatology 09/21/22 Brea Quinn APRN CLIENT SERVER DEVELOPER [address] [place] [address] Assigned Surgical Provider 10/09/22 05/01/24 [place] [address] [address] Assigned Musculoskeletal Provider 10/09/22 05/01/24 Livan Sharif MD [address], [facility] [address] [place] [address] Assigned Heart and Vascular Provider 11/06/22 11/12/22 Catherine Cm MD [address] [place] [address] Assigned Heart and Vascular Provider 11/13/22 05/27/23 Sydnie Martinez RN Personal Advocate & Liaison (PAL) Family Medicine 03/28/23 07/31/23 Alfonso Renteria MD [address] [facility] [address] 200 [place] [address] Assigned Neuroscience Provider 04/02/23 Cheng Todd PA-C [address] [place] [address] [id number] Assigned PCP 04/30/23 07/15/23 Radha Lomeli APRN CLIENT SERVER DEVELOPER [address] [place] [address] Assigned Heart and Vascular Provider 05/28/23 Jelena David OD [address] [facility] [place] [address] Ophthalmology 06/15/23 Pao Joseph RN Personal Advocate & Liaison (PAL) Nurse 08/01/23 11/07/23 Esha Grimm PA-C [address] [place] [phone] Assigned PCP 07/16/23 Valery Veronica PA-C 909 [place] [address] Physician Vice President Of Procurement Dermatology 09/19/23 Rey Tay MD 909 [place] [address] Gastroenterology 09/20/23 Rocky Zepeda DO 500 [place] [address] Physician Gastroenterology 09/20/23 Philip Dumont MD 6 [place] [address] Physician Ophthalmology 09/22/23 Meredith Carrera PA-C 9 [place] [address] Assigned Gastroenterology Provider 11/01/23 Neil Kent MD [address] [address] Dermatology 11/02/23 [place] [address] [address] Neurological Surgery 12/26/23 Audrey Waite PA-C 500 [place] [address] Physician Vice President Of Procurement Dermatology 02/28/24 Valery Veronica PA-C 503201 [address] [place] [address] Physician Vice President Of Procurement Dermatology 04/10/24 Herminia Hatch MD [facility]5 [place], [place] [address] Assigned Rheumatology Provider 07/02/24 documented as of this encounter
--- OUTSIDE RECORDS SUMMARY | 2024-07-22 20:46 | XMS_ITS | Encounter Summary ---
Author Organization [place] Address [address] [place] [address] Care Team Providers Care Electric Locomotive Crane Operator Name Role Phone Lita Oseguera Unavailable Unavailable Marija Edgar REGULATED PROGRAM MANAGER GAMING INVESTIGATOR Primary Care Provider + Chanelle Mccann REGULATED PROGRAM MANAGER CNM Unavailab le Marija Edgar APRN GAMING INVESTIGATOR Unavailable Mynor Broussard MD Unavailable [phone] Keisha Dotson MD Unavailable [phone] Galo Burrell MD Unavailable Unavailable Diana Desir [facility] Unavailable Rain Galaviz PA-C Unavailable Summer Lara MD Unavailable [phone] Summer Lara MD Unavailable [phone] Summer Lara MD Unavailable [phone] Tavia Wyatt MD Unavailable Johnny Murillo MD Unavailable [phone] Erica Farrell REGULATED PROGRAM MANAGER GAMING INVESTIGATOR Unavailable Teresita Bean [facility] Unavailable Tavia Wyatt MD Unavailable DesirDiana [facility] Unavailable [phone] Rich Barrett MD Unavailable [phone] Neil Kent MD Unavailable Roney StoryM Unavailable [phone] Erica Farrell APRN GAMING INVESTIGATOR Unavailable + Diana Desir [facility] Unavailable [phone] Jelena David OD Unavailable Galo Burrell MD Unavailable Unavailable Livan Sharif MD Unavailable + Livan Sharif MD Unavailable + Catherine Cm MD Unavailable + Valery VeronicaC Unavailable [phone] Catherine Cm MD Unavailable + Johnny Murillo MD Unavailable [phone] Brea Quinn REGULATED PROGRAM MANAGER GAMING INVESTIGATOR Unavailable [phone] Brea Quinn REGULATED PROGRAM MANAGER GAMING INVESTIGATOR Unavailable [phone] Jose Francisco Johnson MD Unavailable Livan Sharif MD Unavailable + Catherine Cm MD Unavailable + Sydnie Martinez RN Unavailable Unavailable Alfonso Renteria MD Unavailable [phone] Esha GrimmC Primary Care Provider Cheng Todd PA-C Unavailable [phone] Radha Lomeli APRN GAMING INVESTIGATOR Unavailable [phone] Jelena David OD Unavailable Jake, Pao RN Unavailable Unavailable Alfa, Esha M PA-C Unavailable [phone] Valery Veronica PA-C Unavailable Rey Tay MD Unavailable Duane Rockyanne STEVENS Unavailable Philip Dumont MD Unavailable [phone] Meredith Carrera PA-C Unavailable [phone] Neil Kent MD Unavailable Juan Pablo Emmanuel MD Unavailable [phone] Audrey Waite PA-C Unavailable [phone] Valery Veronica PA-C Unavailable [phone] Hermniia Hatch MD Unavailable Encounter Details Date Type Department Care Team (Late st Contact Info) Description 04/28/2021 MyC Medical Advice [address] [address] Lauren Gan RN Social History [...] Date Recorded PHQ-2 Score 0 04/02/2021 [facility] [...] in a assisted (including now)? No 08/11/2020 [place] Depression Scale Answer Date Recorded [place] Depression Score 5 01/14/2021 Last EPDS Self Harm Result Not on file 01/14 Education Answer Date Recorded What is the highest level of school you have completed or the highest degree you have received? 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 GRINDER OPERATOR AUTOMATIC Gender Identity Female 03/02/2021 5:45 PM CDT [...] Office Visit [facility] Neurology [address], [address] [place] [address] [place] [address] [address] [place] [address] IsamarJohnny farnsworth MD [address] [place] [address] 11/28/2024 7:45 AM CDT Virtual Visit [facility] G[facility] [address] 4th [place] [phone] Meredith Carrera PA-C [address] [place] [address] 669715 documented as of this encounter Visit Diagnoses Not on filedocumented in this encounter Additional Health Concerns Infection Onset Date Last Indicated Resolved Time Rule Out COVID-19 05/11/2021 05/11/2021 05/13/2021 10:18 AM CDT Rule Out COVID-19 07/13/2021 07/13/2021 07/14/2021 3:04 PM GRINDER OPERATOR AUTOMATIC Rule Out COVID-19 07/18/2021 07/18/2021 07/20/2021 1:56 PM GRINDER OPERATOR AUTOMATIC COVID-19 07/18/2021 07/18/2021 08/08/2021 11:3 9 PM GRINDER OPERATOR AUTOMATIC Rule Out COVID-19 12/18/2021 12/18/2021 12/19/2021 11:34 AM CDT Rule Out COVID-19 02/24/2022 02/24/2022 02/25/2022 1:08 PM CDT Rule Out COVID-19 04/26/2022 04/26/2022 04/26/2022 6:47 AM CDT Rule Out COVID-19 05/17/2022 05/17/2022 05/17/2022 10:20 PM GRINDER OPERATOR AUTOMATIC Rule Out COVID-19 06/09/2022 06/09/2022 06/09/2022 9:35 AM GRINDER OPERATOR AUTOMATIC COVID-19 06/09/2022 06/09/2022 06/30/2022 11:4 1 PM GRINDER OPERATOR AUTOMATIC Rule Out COVID-19 11/10/2022 11/10/2022 11/11/2022 12:17 PM CDT Rule Out COVID-19 03/07/2023 03/07/202303/07/2023 1:20 PM CDT Rule Out COVID-19 12/26/2023 12/26/2023 12/26/2023 9:50 AM CDT Rule Out COVID-19 04/09/2024 04/09/2024 04/10/2024 6:48 PM CDT Assessment Noted Time PHQ-9 Depression Total Score: 2 04/02/20 10:19 AM CDT documented as of this encounter Care Teams Electric Locomotive Crane Operator Relationship Specialty Start Date End Date Marija Edgar APRN GAMING INVESTIGATOR PCP - General Nurse Practitioner 04/30/20 04/14/23 Esha Grimm PA-C [address] [place] [address] PCP - General Family Medicine 05/04/23 Lita Oseguera Personal Advocate & Liaison (PAL) 02/28/20 03/27/23 [place] [address] [place] [address] 200 [place], [place] 8424[address] Assigned OBGYN Provider 05/02/2005/09 Marija Edgar APRN GAMING INVESTIGATOR Assigned PCP 06/08/20 04/29/23 Mynor Broussard MD 6363 [facility] 500 [place], [place] [address]365 Assigned Surgical Provider 06/01/20 11/28/21 Keisha Dotson MD 909 [place], [place] [address] Assigned Neuroscience Provider 06/04/20 04/01/23 Galo Burrell MD Assigned Heart and Vascular Provider 10/05/20 04/02/22 Diana Desir, [facility] 3033 [place] [address] Pharmacist Pharmacist 04/17/21 Rain Galaviz PA-C [address] [place] [address] [place] [address] Physician Qa Tester Dermatology 04/28/21 Summer Lara MD [address] [place] [address] Assigned OBGYN Provider 05/10/2105/23 Summer Lara MD [address] [place], [place] 7[address] Assigned OBGYN Provider 05/31/21 2 Summer Lara MD [address] [place], [place] [address] Assigned OBGYN Provider 05/24/2105/30 Tavia Wyatt MD [address] [place], [place] [address] Dermatology 07/14/21 Johnny Murillo MD [address] [facility] [address] [place] [address] Assigned Musculoskeletal Provider 08/30/21 03/17/22 Erica Farrell APRN GAMING INVESTIGATOR 6405 [facility] [address] [place], [place] [address] Nurse Practitioner Cardiovascular Disease 09/09/21 Teresita Bean [facility] [address] [place] [address] Pharmacist Pharmacist 09/24/21 09/29/21 Tavia Wyatt MD [address] [place] [address] Assigned Surgical Provider 11/29/21 05/07/22 Diana Desir, [facility] 3033 [place] [address] Assigned MTM Pharmacist 01/02/22 Rich Barrett MD [address] [address] Physician Ophthalmology 01/21/22 Neil Kent MD 500 [place], [place] [address] Dermatology 02/24/22 [place] [address] [facility] [address] [place] [address] Assigned Musculoskeletal Provider 03/20/22 08/13/22 Erica Farrell APRN GAMING INVESTIGATOR 1700 [place] [address] Assigned Heart and Vascular Provider 04/03/22 04/16/22 [facility] [address] [place], [place] [address]66 Assigned MTM Pharmacist 04/07/22 Frankie Jelena TempletonSONJA woods [address] [facility] [place] [address] Assigned Surgical Provider 05/08/22 10/08/22 Galo Burrell MD Assigned Heart and Vascular Provider 04/17/22 06/11/22 Livan Sharif MD [address], [address] [place] [address] Cardiovascular Disease 05/14/22 Livan Sharif MD [address], [address] [address] [place] [address] Assigned Heart and Vascular Provider 06/12/22 07/23/22 Catherine Cm MD [address] [facility] [address] [place] [address] Cardiovascular Disease 07/21/22 Valery Veronica, PA-C 909 [place], [place] 33[address] Physician Qa Tester Dermatology 07/21/22 Catherine Cm MD [address] [place] 4[address]35 Assigned Heart and Vascular Provider 07/24/22 11/05/22 Johnny Murillo MD [address] [address] Assigned Musculoskeletal Provider 08/14/22 10/08/22 Brea Quinn APRN GAMING INVESTIGATOR 500 [facility] [place] [address] Nurse Practitioner Dermatology 09/21/22 Brea Quinn APRN GAMING INVESTIGATOR 6401 [place] [address] Assigned Surgical Provider 10/09/22 05/01/24 [place] [address] [facility] 300 [place] [address] Assigned Musculoskeletal Provider 10/09/22 05/01/24 Livan Sharif MD [address], [facility] [address] [place] [address] Assigned Heart and Vascular Provider 11/06/22 11/12/22 Catherine Cm MD [address] [facility] [address] [place] [address] Assigned Heart and Vascular Provider 11/13/22 05/27/23 Sydnie Martinez RN Personal Advocate & Liaison (PAL) Family Medicine 03/28/23 07/31/23 Alfonso Renteria MD 5775 [facility] 200 [place] [address] Assigned Neuroscience Provider 04/02/23 Cheng Todd PA-C [address] [place] [address] [id number] Assigned PCP 04/30/23 07/15/23 Radha Lomeli APRN CNP 6405 [facility] [address] [place] [address] Assigned Heart and Vascular Provider 05/28/23 Jelena David OD [address] [facility] [place] [address] MD Ophthalmology 06/15/23 Pao Joseph, VJ Personal Advocate & Liaison (PAL) Nurse 08/01/23 11/07/23 Esha Grimm PA-C [address] [place] [phone] Assigned PCP 07/16/23 Valery Veronica PA-C [address] [place] [address] Physician Qa Tester Dermatology 09/19/23 Rey Tay MD [address] [place] [address] 270595 MD Gastroenterology 09/20/23 Rocky Zepeda DO [address] [place] [address] 594425 Physician Gastroenterology 09/20/23 Philip Dumont MD [address] [place] [address]345 Physician Ophthalmology 09/22/23 Meredith Carrera PA-C [address] [place] [address] 948545 Assigned Gastroenterology Provider 11/01/23 Neil Kent MD [address] [address] Dermatology 11/02/23 [place] [address] 896317 Neurological Surgery 12/26/23 Audrey Waite PA-C 500 [place] [address] Physician Qa Tester Dermatology 02/28/24 Valery Veronica PA-C 101334 [address] [address] Physician Qa Tester Dermatology 04/10/24 Herminia Hatch MD [facility]5 [place], [place] [address] Assigned Rheumatology Provider 07/02/24 documented as of this encounter
--- OUTSIDE RECORDS SUMMARY | 2024-07-22 20:46 | XMS_ITS | Encounter Summary ---
Author Organization [facility] Address [address] [place] [address] Care Team Providers Care Manager Talent Acquisition Name Role Phone Lita Oseguera Unavailable Unavailable Marija Edgar APRN SEEDLING PULLER Primary Care Provider + Marija Edgar APRN SEEDLING PULLER Unavailable Mynor Broussard MD Unavailable [phone] Keisha Dotson MD Unavailable Galo Burrell MD Unavailable Unavailable Diana Desir [facility] Unavailable [phone] Rain Galaviz PA-C Unavailable Summer Lara MD Unavailable [phone] Tavia Wyatt MD Unavailable Johnny Murillo MD Unavailable Erica Farrell APRN SEEDLING PULLER Unavailable Teresita Bean [facility] Unavailable [phone] Tavia Wyatt MD Unavailable Diana Desir [facility] Unavailable Rich Barrett MD Unavailable [phone] Neil Kent MD Unavailable Roney Story DPM Unavailable Erica Farrell VERIFICATION SPECIALIST SEEDLING PULLER Unavailable Thang Diana Stanislav [facility] Unavailable Jelena David OD Unavailable Galo Burrell MD Unavailable Unavailable Livan Sharif MD Unavailable + Livan Sharif MD Unavailable + Catherine Cm MD Unavailable + Valery Veronica PA-C Unavailable [phone] Catherine Cm MD Unavailable + Johnny Murillo MD Unavailable [phone] Brea Quinn VERIFICATION SPECIALIST SEEDLING PULLER Unavailable [phone] Brea Quinn VERIFICATION SPECIALIST SEEDLING PULLER Unavailable [phone] Jose Francisco Johnson MD Unavailable Livan Sharif MD Unavailable + IsCatherine hobbs MD Unavailable + Sydnie Martinez RN Unavailable Unavailable Alfonso Renteria MD Unavailable Esha Grimm-C Primary Care Provider Cheng Todd PA-C Unavailable Radha Lomeli VERIFICATION SPECIALIST SEEDLING PULLER Unavailable [phone] Jelena David OD Unavailable Pao Joseph RN Unavailable Unavailable Esha Grimm-C Unavailable [phone] JeremíasValery damon PA-C Unavailable [phone] Rey Tay MD Unavailable Rocky Zepeda DO Unavailable Philip Dumont MD Unavailable [phone] Meredith CarreraC Unavailable [phone] Neil Kent MD Unavailable Juan Pablo Emmanuel MD Unavailable [phone] Audrey WaiteC Unavailable [phone] Valery Veronica PA-C Unavailable [phone] Herminia Hatch MD Unavailable Encounter Details Date Type Department Care Team (Late st Contact Info) Description 06/03/2021 [facility] [address] [address] [facility] [address] [place] [address] Social History Tobacco Use Types Packs/Day Years [...] Answer Date Recorded PHQ-2 Score 0 04/02/2021 [facility] of Occupat ional [...] in a mcfp (including now)? No 08/11/2020 Elizabeth Depression Scale Answer Date Recorded Elizabeth [...] CDT Legal Sex Female 4:13 AM SALES SUPPORT TECHNICIAN Gender Identity Female 03/02/2021 5:45 PM [...] [facility] [place] [address] [place] [address], [address] [place] [address] [place] [address] [place] [address] Johnny Penn MD [address] [place] [address] 11/28/2024 7:45 AM CDT Virtual Visit [facility] [address] [place] [phone] Meredith Carrera PA-C [address] [place] [address] documented as of this encounter Visit Diagnoses Not on filedocumented in this encounter Additional Health Concerns Infection Onset Date Last Indicated Resolved Time Rule Out COVID-19 07/13/2021 07/13/2021 07/14/2021 3:04 PM SALES SUPPORT TECHNICIAN Rule Out COVID-19 07/18/2021 07/18/2021 07/20/2021 1:56 PM SALES SUPPORT TECHNICIAN COVID-19 07/18/2021 07/18/2021 08/08/2021 11:3 9 PM SALES SUPPORT TECHNICIAN Rule Out COVID-19 12/18/2021 12/18/2021 12/19/2021 11:34 AM CDT Rule Out COVID-19 02/24/2022 02/24/2022 02/25/2022 1:08 PM CDT Rule Out COVID-19 04/26/2022 04/26/2022 04/26/2022 6:47 AM CDT Rule Out COVID-19 05/17/2022 05/17/2022 05/17/2022 10:20 PM SALES SUPPORT TECHNICIAN Rule Out COVID-19 06/09/2022 06/09/2022 06/09/2022 9:35 AM SALES SUPPORT TECHNICIAN COVID-19 06/09/2022 06/09/2022 06/30/2022 11:4 1 PM SALES SUPPORT TECHNICIAN Rule Out COVID-19 11/10/2022 11/10/2022 11/11/2022 12:17 PM CDT Rule Out COVID-19 03/07/2023 03/07/2023 03/07/2023 1:20 PM CDT Rule Out COVID-19 12/26/2023 12/26/2023 12/26/2023 9:50 AM CDT Rule Out COVID-19 04/09/2024 04/09/202404/1004/10/2024 6:48 PM CDT Assessment Noted Time PHQ-9 Depression Total Score: 2 04/02/20 10:19 AM CDT documented as of this encounter Care Teams Manager Talent Acquisition Relationship Specialty Start Date End Date Marija Edgar APRN SEEDLING PULLER PCP - General Nurse Practitioner 04/30/20 04/14/23 Esha Grimm PA-C [address] [place] [address] PCP - General Family Medicine 05/04/23 Lita Oseguera Personal Advocate & Liaison (PAL) 02/28/20 03/27/23 Marija Edgar APRN SEEDLING PULLER Assigned PCP 06/08/20 04/29/23 Mynor Broussard MD [address] [facility] 500 [place], [place] 3397[address] Assigned Surgical Provider 06/01/20 11/28/21 Keisha Dotson MD [address]09 [place], [place] 3948[address] Assigned Neuroscience Provider 06/04/20 04/01/23 Galo Burrell MD Assigned Heart and Vascular Provider 10/05/20 04/02/22 Diana Desir, [facility] [address] [place], [place] 8[address] Pharmacist Pharmacist 04/17/21 Rain Galaviz PA-C [address] [place] [address] [facility] [facility] [place] [address] Physician Granulating Blender Dermatology 04/28/21 Summer Lara MD [address] [place] [address] Assigned OBGYN Provider 05/31/21 2 Tavia Wyatt MD [address] [place] [address] Dermatology 07/14/21 Johnny Murillo MD [address] [place] [address] Assigned Musculoskeletal Provider 08/30/21 03/17/22 Erica Farrell APRN SEEDLING PULLER [address] [facility] [address] [place] [address] Nurse Practitioner Cardiovascular Disease 09/09/21 Teresita Bean, [facility] [address] [facility] [address] Pharmacist Pharmacist 09/24/21 09/29/21 Tavia Wyatt MD [address] [place], [place] [address]88[address] Assigned Surgical Provider 11/29/21 05/07/22 [facility] [address] [place] [address] Assigned MTM Pharmacist 01/02/22 Rich Barrett MD [address] [facility] [address] [place] [address] Physician Ophthalmology 01/21/22 Neil Kent MD 500 [place] [address] Dermatology 02/24/22 Roney Story DPM [address] [facility] [address] [place] [address] Assigned Musculoskeletal Provider 03/20/22 08/13/22 Erica Farrell APRN SEEDLING PULLER 1700 [place] [address] Assigned Heart and Vascular Provider 04/03/22 04/16/22 [facility] [address] [place] [address] Assigned MTM Pharmacist 04/07/22 Jelena David OD [address] [facility] [address] Assigned Surgical Provider 05/08/22 10/08/22 Galo Burrell MD Assigned Heart and Vascular Provider 04/17/22 06/11/22 Livan Sharif MD [address] [place] [address] Cardiovascular Disease 05/14/22 Livan Sharif MD [address] [place] 008195 Assigned Heart and Vascular Provider 06/12/22 07/23/22 Catherine Cm MD [address] [place] [address] [place] [address] Cardiovascular Disease 07/21/22 Valery Veronica, PA-C [address] [place] [address] 646215 Physician Granulating Blender Dermatology 07/21/22 Catherine Cm MD [address] [place] [address] [place] [address] Assigned Heart and Vascular Provider 07/24/22 11/05/22 Johnny Murillo MD [address] [place] [address] Assigned Musculoskeletal Provider 08/14/22 10/08/22 Brea Quinn APRN SEEDLING PULLER [address] [place] [address] Nurse Practitioner Dermatology 09/21/22 Brea Quinn APRN SEEDLING PULLER [address] [place] [address] [place] [address] Assigned Surgical Provider 10/09/22 05/01/24 [place] [address] [place] [address] [place] [address] Assigned Musculoskeletal Provider 10/09/22 05/01/24 Livan Sharif MD [address], [place] [address] [place] [address] Assigned Heart and Vascular Provider 11/06/22 11/12/22 Catherine Cm MD [address] [facility] [[email or web address] [address] [place] [address] Assigned Heart and Vascular Provider 11/13/22 05/27/23 Sydnie Martinez RN Personal Advocate & Liaison (PAL) Family Medicine 03/28/23 07/31/23 Alfonso Renteria MD [address] [facility] 200 [place], [place] 520[address] Assigned Neuroscience Provider 04/02/23 Cheng Todd PA-C [address] [place] [address] [id number] Assigned PCP 04/30/23 07/15/23 Radha Lomeli APRN SEEDLING PULLER [address] [facility] [address] [place] [address] Assigned Heart and Vascular Provider 05/28/23 Jelena David OD [address] [facility] [address] [place] [phone] Ophthalmology 06/15/23 Pao Joseph, VJ Personal Advocate & Liaison (PAL) Nurse 08/01/23 11/07/23 Esha Grimm PA-C [address] [place] [address] Assigned PCP 07/16/23 Valery Veronica PA-C [address] [place] [address] Physician Granulating Blender Dermatology 09/19/23 Rey Tay MD 9 [place] [address] MD Gastroenterology 09/20/23 Rocky Zepeda DO 500 [place] [address] Physician Gastroenterology 09/20/23 Philip Dumont MD 6 [place], [place] 7870[address] Physician Ophthalmology 09/22/23 Meredith Carrera PA-C [address] [place] [address] Assigned Gastroenterology Provider 11/01/23 Neil Kent MD [address] [place] [address] Dermatology 11/02/23 [place] [address] [place] [facility] [[email or web address] [place] [address] Neurological Surgery 12/26/23 Audrey Waite PA-C 500 [place] [address] Physician Granulating Blender Dermatology 02/28/24 Valery Veronica PA-C 516966 [place] [address] Physician Granulating Blender Dermatology 04/10/24 Herminia Hatch MD [address] [place] [address] Assigned Rheumatology Provider 07/02/24 documented as of this encounter
--- OUTSIDE RECORDS SUMMARY | 2024-07-22 20:46 | XMS_ITS | Encounter Summary ---
Author Organization [facility] Address [address] [place] [address] Care Team Providers Care Schedule Manager Name Role Phone Lita Oseguera Unavailable Unavailable Marija Edgar APRN PERENNIAL HOUSE MANAGER Primary Care Provider + Marija Edgar APRN PERENNIAL HOUSE MANAGER Unavailable Mynor Broussard MD Unavailable [phone] Keisha Dotson MD Unavailable Galo Burrell MD Unavailable Unavailable Diana Desir [facility] Unavailable [phone] Rain Galaviz PA-C Unavailable [phone] Summer Lara MD Unavailable [phone] Tavia Wyatt MD Unavailable Johnny Murillo MD Unavailable Erica Farrell APRN PERENNIAL HOUSE MANAGER Unavailable Teresita Bean [facility] Unavailable [phone] Tavia Wyatt MD Unavailable Diana Desir [facility] Unavailable Rich Barrett MD Unavailable [phone] Neil Kent MD Unavailable Roney Story DPM Unavailable Erica Farrell REHABILITATION PROGRAM MANAGER PERENNIAL HOUSE MANAGER Unavailable Thang Diana Stanislav [facility] Unavailable Jelena David OD Unavailable [phone] Galo Burrell MD Unavailable Unavailable Livan Sharif MD Unavailable + Livan Sharif MD Unavailable + Catherine Cm MD Unavailable + Valery Veronica PA-C Unavailable [phone] Catherine Cm MD Unavailable + Johnny Murillo MD Unavailable [phone] Brea Quinn REHABILITATION PROGRAM MANAGER PERENNIAL HOUSE MANAGER Unavailable [phone] Brea Quinn REHABILITATION PROGRAM MANAGER PERENNIAL HOUSE MANAGER Unavailable [phone] Jose Francisco Johnson MD Unavailable Livan Sharif MD Unavailable + IsCatherine hobbs MD Unavailable + Sydnie Martinez RN Unavailable Unavailable Alfonso Renteria MD Unavailable Esha Grimm-C Primary Care Provider Cheng Todd PA-C Unavailable Radha Lomeli REHABILITATION PROGRAM MANAGER PERENNIAL HOUSE MANAGER Unavailable [phone] Jelena David OD Unavailable Pao Joseph RN Unavailable Unavailable Esha Grimm-C Unavailable [phone] JeremíasValery damon PA-C Unavailable [phone] Rey Tay MD Unavailable Rocky Zepeda DO Unavailable Philip Dumont MD Unavailable [phone] Meredith CarreraC Unavailable [phone] Neil Kent MD Unavailable Juan Pablo Emmanuel MD Unavailable Audrey WaiteC Unavailable [phone] Vaelry Veronica PA-C Unavailable [phone] Herminia Hatch MD Unavailable Encounter Details Date Type Department Care Team (Late st Contact Info) Description 06/25/2021 [facility] [address] [address] [address] [place] [address] Psoriasis (Primary Dx) Social History Tobacco Use [...] Answer Date Recorded PHQ-2 Score 0 04/02/2021 [facility] of Occupat [...] in a mcc (including now)? No 08/11/2020 [place] Depression Scale Answer Date Recorded [place] Depression Score 5 01/14/2021 Last EPDS Self Harm Result Not on file 01/14 Education Answer Date Recorded What is the highest level of school you have completed or the highest degree you have received? 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 SKIN GRADER Gender Identity Female 03/02/2021 5:45 PM CDT Sexual Orientation Straight 02/28/2020 12 :51 AM CDT COVID-19 Exposure Response Date Recorded In the last month, have you been in contact with someone who was confirmed or suspected to have Coronavirus / COVID-19? No / Unsure 06/26/2021 8:28 AM SKIN GRADER documented as of this encounter Miscellaneous Notes * Telephone Encounter - Diana Desir [facility] - 06/26/2021 9:53 AM CST Discussed with PCP and verbal approval for betamethasone cream. Diana Desir, PharmD Medication Therapy Management Provider, [facility] Pager: [phone] GRADER documented in this encounter Plan of Treatment Upcoming Encounters Date Type Department Care Team (Late st Contact Info) Description 10/23/2024 9:30 AM CDT Office Visit [facility] - [place] [address] [facility], [address] [place] [phone] [place] [address] [place], [place] [id number] Johnny Penn MD [address] [place] [address] 11/28/2024 7:45 AM CDT Virtual Visit [facility] Gastroenterology Clinic [address] 4th [place] [phone] Meredith Carrera PA-C [address] [place] [address] 238105 documented as of this encounter Visit Diagnoses Diagnosis Psoriasis- Primary Other psoriasis documented in this encounter Additional Health Concerns Infection Onset Date Last Indicated Resolved Time Rule Out COVID-19 07/13/2021 07/13/2021 07/14/2021 3:04 PM SKIN GRADER Rule Out COVID-19 07/18/2021 07/18/2021 07/20/2021 1:56 PM SKIN GRADER COVID-19 07/18/2021 07/18/2021 08/08/2021 11:3 9 PM SKIN GRADER Rule Out COVID-19 12/18/2021 12/18/2021 12/19/2021 11:34 AM CDT Rule Out COVID-19 02/24/2022 02/24/2022 02/25/2022 1:08 PM CDT Rule Out COVID-19 04/26/2022 04/26/2022 04/26/2022 6:47 AM CDT Rule Out COVID-19 05/17/2022 05/17/2022 05/17/2022 10:20 PM SKIN GRADER Rule Out COVID-19 06/09/2022 06/09/2022 06/09/2022 9:35 AM SKIN GRADER COVID-19 06/09/2022 06/09/2022 06/30/2022 11:4 1 PM SKIN GRADER Rule Out COVID-19 11/10/2022 11/10/2022 11/11/2022 12:17 PM CDT Rule Out COVID-19 03/07/2023 03/07/2023 03/07/2023 1:20 PM CDT Rule Out COVID-19 12/26/2023 12/26/2023 12/26/2023 9:50 AM CDT Rule Out COVID-19 04/09/2024 04/09/2024 04/10/2024 6:48 PM CDT Assessment Noted Time PHQ-9 Depression Total Score: 2 04/02/20 10:19 AM CDT documented as of this encounter Care Teams Schedule Manager Relationship Specialty Start Date End Date Marija Edgar APRN PERENNIAL HOUSE MANAGER PCP - General Nurse Practitioner 04/30/20 04/14/23 Esha Grimm PA-C [address] [place] [address] PCP - General Family Medicine 05/04/23 Lita Oseguera Personal Advocate & Liaison (PAL) 02/28/20 03/27/23 Marija Edgar APRN PERENNIAL HOUSE MANAGER Assigned PCP 06/08/20 04/29/23 Mynor Broussard MD [address] [address] Assigned Surgical Provider 06/01/20 11/28/21 Keisha Dotson MD 909 [place] [address] Assigned Neuroscience Provider 06/04/20 04/01/23 Galo Burrell MD Assigned Heart and Vascular Provider 10/05/20 04/02/22 Diana Desir [facility] [address] [place] [address] Pharmacist Pharmacist 04/17/21 Rain Galaviz PA-C [address] [place] [address] [place] [address] Physician Curtain Supervisor Dermatology 04/28/21 Summer Lara MD [address] [place] [address] Assigned OBGYN Provider 05/31/21 2 Tavia Wyatt MD [address] [place] [address]854 Dermatology 07/14/21 Johnny Murillo MD [address] [facility] [address] [place] [address] Assigned Musculoskeletal Provider 08/30/21 03/17/22 Erica Farrell APRN PERENNIAL HOUSE MANAGER [address] [facility] [address] [place] [address] Nurse Practitioner Cardiovascular Disease 09/09/21 Teresita Bean, [facility] [address] [place] [phone] Pharmacist Pharmacist 09/24/21 09/29/21 Tavia Wyatt MD [facility] [place], [place] [address] Assigned Surgical Provider 11/29/21 05/07/22 Diana Desir, [facility] 3033 [place] [address] Assigned MTM Pharmacist 01/02/22 Rich Barrett MD [address] [address] Physician Ophthalmology 01/21/22 Neil Kent MD [address] [place] [address] Dermatology 02/24/22 [place] [address] [facility] 300 [place] [address] Assigned Musculoskeletal Provider 03/20/22 08/13/22 Erica Farrell APRN PERENNIAL HOUSE MANAGER [facility] [place] [place] [address] Assigned Heart and Vascular Provider 04/03/22 04/16/22 Diana Desir, [facility] [address] [place] [address] Assigned MTM Pharmacist 04/07/22 Jelena David OD [facility] [place] [address] Assigned Surgical Provider 05/08/22 10/08/22 Galo Burrell MD Assigned Heart and Vascular Provider 04/17/22 06/11/22 Livan Sharif MD [address] [place] [address] Cardiovascular Disease 05/14/22 Livan Sharif MD [address] [place] [address] Assigned Heart and Vascular Provider 06/12/22 07/23/22 Catherine Cm MD [address] [place] [address]15[address] Cardiovascular Disease 07/21/22 Valery Veronica, PAUcheC [address] [place] [address] 757865 Physician Curtain Supervisor Dermatology 07/21/22 Catherine Cm MD [address] [place] 815865 Assigned Heart and Vascular Provider 07/24/22 11/05/22 Johnny Murillo MD [facility] [address] [address] Assigned Musculoskeletal Provider 08/14/22 10/08/22 Brea Quinn APRN PERENNIAL HOUSE MANAGER [address] [place] [address] 024715 Nurse Practitioner Dermatology 09/21/22 Brea Quinn APRN PERENNIAL HOUSE MANAGER [address] [place] [address] [place] 966152 Assigned Surgical Provider 10/09/22 05/01/24 [place] [address] [place] [address] Assigned Musculoskeletal Provider 10/09/22 05/01/24 Livan Sharfi MD [address] [place] 117[address] Assigned Heart and Vascular Provider 11/06/22 11/12/22 Catherine Cm MD [address] [place] [address] Assigned Heart and Vascular Provider 11/13/22 05/27/23 Sydnie Martinez RN Personal Advocate & Liaison (PAL) Family Medicine 03/28/23 07/31/23 Alfonso Renteria MD 5775 [facility] 200 [place], [place] 306766 Assigned Neuroscience Provider 04/02/23 Cheng Todd PA-C [address] [place] [address] [id number] Assigned PCP 04/30/23 07/15/23 Radha Lomeli, REHABILITATION PROGRAM MANAGER PERENNIAL HOUSE MANAGER [address] [place] 652965 Assigned Heart and Vascular Provider 05/28/23 Jelena David OD [address] [facility] [place] [address] Ophthalmology 06/15/23 Pao Joseph, RN Personal Advocate & Liaison (PAL) Nurse 08/01/23 11/07/23 Esha Grimm PA-C [address] [place] [address] Assigned PCP 07/16/23 Valery Veronica PA-C [address] [place] [address] Physician Curtain Supervisor Dermatology 09/19/23 Rey Tay MD [address] [place] [address] 580155 Gastroenterology 09/20/23 Rocky Zepeda DO [address] [place] [address] 904815 Physician Gastroenterology 09/20/23 Philip Dumont MD [address] [place] [address] 988685 Physician Ophthalmology 09/22/23 Meredith Carrera PA-C [address] [place] [address] Assigned Gastroenterology Provider 11/01/23 Neil Kent MD [address] [place] [address] Dermatology 11/02/23 [place] [address] [place] [address] Neurological Surgery 12/26/23 Audrey Waite PA-C 500 [place] [address] Physician Curtain Supervisor Dermatology 02/28/24 Valery Veronica PA-C [address] [place] [address] Physician Curtain Supervisor Dermatology 04/10/24 Herminia Hatch MD [address] [place] [address] Assigned Rheumatology Provider 07/02/24 documented as of this encounter
--- OUTSIDE RECORDS SUMMARY | 2024-07-22 20:46 | XMS_ITS | Encounter Summary ---
Author Organization [place] Address [address] [place] [address] Care Team Providers Care Compliance Counsel Name Role Phone Lita Oseguera Unavailable Unavailable Marija Edgar APRN BARREL BRIDGE ASSEMBLER Primary Care Provider + Marija Edgar APRN BARREL BRIDGE ASSEMBLER Unavailable Mynor Broussard MD Unavailable [phone] Keisha Dotson MD Unavailable Galo Burrell MD Unavailable Unavailable Diana Desir [facility] Unavailable Rain Galaviz PA-C Unavailable Summer Lara MD Unavailable [phone] Tavia Wyatt MD Unavailable Johnny Murillo MD Unavailable Erica Farrell APRN BARREL BRIDGE ASSEMBLER Unavailable Teresita Bean [facility] Unavailable [phone] Tavia Wyatt MD Unavailable Diana Desir [facility] Unavailable Rich Barrett MD Unavailable [phone] Neil Kent MD Unavailable Roney Story DPM Unavailable Erica Farrell DATABASE DESIGNER BARREL BRIDGE ASSEMBLER Unavailable Thang Diana Stanislav [facility] Unavailable Jelena David OD Unavailable Galo Burrell MD Unavailable Unavailable Livan Sharif MD Unavailable + Livan Sharif MD Unavailable + Catherine Cm MD Unavailable + Valery Veronica PA-C Unavailable [phone] Catherine Cm MD Unavailable + Johnny Murillo MD Unavailable [phone] Brea Quinn DATABASE DESIGNER BARREL BRIDGE ASSEMBLER Unavailable [phone] Brea Quinn DATABASE DESIGNER BARREL BRIDGE ASSEMBLER Unavailable [phone] Jose Francisco Johnson MD Unavailable Livan Sharif MD Unavailable + IsCatherine hobbs MD Unavailable + Sydnie Martinez RN Unavailable Unavailable Alfonso Renteria MD Unavailable Esha Grimm-C Primary Care Provider Cheng Todd PA-C Unavailable Radha Lomeli DATABASE DESIGNER BARREL BRIDGE ASSEMBLER Unavailable [phone] Jelena David OD Unavailable Pao Joseph RN Unavailable Unavailable Esha Grimm-C Unavailable [phone] JeremíasValery damon PA-C Unavailable [phone] Rey Tay MD Unavailable Rocky Zepeda DO Unavailable Philip Dumont MD Unavailable [phone] Meredith CarreraC Unavailable [phone] Neil Kent MD Unavailable Juan Pablo Emmanuel MD Unavailable Audrey WaiteC Unavailable [phone] Valery Veronica PA-C Unavailable [phone] Herminia Hatch MD Unavailable Encounter Details Date Type Department Care Team (Late st Contact Info) Description 06/01/2021 [facility] [address] [address] [facility] [address] [place] [address] Social History Tobacco Use Types Packs/Day Years [...] you attend chur ch or sikh services? More than 4 times per year [...] Answer Date Recorded PHQ-2 Score 0 04/02/2021 [facility] ional Health [...] a long term (including now)? No 08/11/2020 [place] Depression Scale Answer Date Recorded [place] Depression Score 5 01/14/2021 Last EPDS Self Harm Result Not on file 01/14 Education Answer Date Recorded What is the highest level of school you have completed or the highest degree you have received? 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 RN INTERNATIONAL Gender Identity Female 03/02/2021 5:45 PM CDT Sexual Orientation Straight 02/28/2020 12 :51 AM CDT COVID-19 Exposure Response Date Recorded In the last month, have you been in contact with someone who was confirmed or suspected to have Coronavirus / COVID-19? No / Unsure 05/11/2021 4:19 PM CDT documented as of this encounter Miscellaneous Notes * Telephone Encounter - Diana Desir [facility] - 06/01/2021 3:43 PM CST Called patient and reassured 50 mg dose increase in sertraline is typical and okay to do. She will closely monitor changes in mental health over next couple weeks. Answered all questions. Diana Desir, PharmD Medication Therapy Management Provider, [facility] Pager: [phone] INTERNATIONAL documented in this encounter Plan of Treatment Upcoming Encounters Date Type Department Care Team (Late st Contact Info) Description 10/23/2024 9:30 AM CDT Office Visit [facility] [place] [address] [facility], [address] [place] [address] [place] [address] [place], [place] 600587 Johnny Penn MD [address] [place] [address] 11/28/2024 7:45 AM CDT Virtual Visit [facility] [address] 4th [place] [phone] Meredith Carrera PA-C [address] [place] [address] 872135 documented as of this encounter Visit Diagnoses Not on filedocumented in this encounter Additional Health Concerns Infection Onset Date Last Indicated Resolved Time Rule Out COVID-19 07/13/2021 07/13/2021 07/14/2021 3:04 PM RN INTERNATIONAL Rule Out COVID-19 07/18/2021 07/18/2021 07/20/2021 1:56 PM RN INTERNATIONAL COVID-19 07/18/2021 07/18/2021 08/08/2021 11:3 9 PM RN INTERNATIONAL Rule Out COVID-19 12/18/2021 12/18/2021 12/19/2021 11:34 AM CDT Rule Out COVID-19 02/24/2022 02/24/2022 02/25/2022 1:08 PM CDT Rule Out COVID-19 04/26/2022 04/26/2022 04/26/2022 6:47 AM CDT Rule Out COVID-19 05/17/2022 05/17/2022 05/17/2022 10:20 PM RN INTERNATIONAL Rule Out COVID-19 06/09/2022 06/09/2022 06/09/2022 9:35 AM RN INTERNATIONAL COVID-19 06/09/2022 06/09/2022 06/30/2022 11:4 1 PM RN INTERNATIONAL Rule Out COVID-19 11/10/2022 11/10/2022 11/11/2022 12:17 PM CDT Rule Out COVID-19 03/07/2023 03/07/2023 03/07/2023 1:20 PM CDT Rule Out COVID-19 12/26/2023 12/26/2023 12/26/2023 9:50 AM CDT Rule Out COVID-19 04/09/2024 04/09/2024 04/10/2024 6:48 PM CDT Assessment Noted Time PHQ-9 Depression Total Score: 2 04/02/20 10:19 AM CDT documented as of this encounter Care Teams Compliance Counsel Relationship Specialty Start Date End Date Marija Edgar APRN BARREL BRIDGE ASSEMBLER PCP - General Nurse Practitioner 04/30/20 04/14/23 Esha Grimm PA-C [address] [place] [address] PCP - General Family Medicine 05/04/23 Lita Oseguera Personal Advocate & Liaison (PAL) 02/28/20 03/27/23 Marija Edgar APRN BARREL BRIDGE ASSEMBLER Assigned PCP 06/08/20 04/29/23 Mynor Broussard MD [address] [address] Assigned Surgical Provider 06/01/20 11/28/21 Keisha Dotson MD 9 [place] [address] Assigned Neuroscience Provider 06/04/20 04/01/23 Galo Burrell MD Assigned Heart and Vascular Provider 10/05/20 04/02/22 Diana Desir, [facility] [address] [place] [address] Pharmacist Pharmacist 04/17/21 Rain Galaviz PA-C [address] [place] [address] [place] [address] Physician General Car Yard Supervisor Dermatology 04/28/21 Summer Lara MD [address] [place] [address] Assigned OBGYN Provider 05/31/21 2 Tavia Wyatt MD [address] [place], [place] 82[address] Dermatology 07/14/21 Johnny Murillo MD [address] [place] [address] Assigned Musculoskeletal Provider 08/30/21 03/17/22 Erica Farrell APRN BARREL BRIDGE ASSEMBLER [address] [place] [address] Nurse Practitioner Cardiovascular Disease 09/09/21 Teresita Bean, [facility] [address] [place] [address] Pharmacist Pharmacist 09/24/21 09/29/21 Tavia Wyatt MD [address] [place] [address] Assigned Surgical Provider 11/29/21 05/07/22 Diana Desir, [facility] 3033 [place] [address] Assigned MTM Pharmacist 01/02/22 Rich Barrett MD [address] [phone] Physician Ophthalmology 01/21/22 Neil Kent MD 500 [place] [address] Dermatology 02/24/22 Roney Story DPM [address] [facility] [address] [place] [address] Assigned Musculoskeletal Provider 03/20/22 08/13/22 Erica Farrell APRN BARREL BRIDGE ASSEMBLER 1700 [place] [address] Assigned Heart and Vascular Provider 04/03/22 04/16/22 Diana Desir, [facility] [address] [place] [address] Assigned MTM Pharmacist 04/07/22 Jelena David OD [address] [facility] [place] [address] Assigned Surgical Provider 05/08/22 10/08/22 Galo Burrell MD Assigned Heart and Vascular Provider 04/17/22 06/11/22 Livan Sharif MD [address] Sylvia, [facility] [address] [place] 722705 Cardiovascular Disease 05/14/22 Livan Sharif MD [address] [place], [facility]00 [place] 844075 Assigned Heart and Vascular Provider 06/12/22 07/23/22 Catherine Cm MD [address] [facility]00 [place] 499305 Cardiovascular Disease 07/21/22 Valery Veronica, PA-C [address] [place] [address] 211635 Physician General Car Yard Supervisor Dermatology 07/21/22 Catherine Cm MD [address] [facility]00 [place] 80[address]35 Assigned Heart and Vascular Provider 07/24/22 11/05/22 Johnny Murillo MD [facility] [address] [address] Assigned Musculoskeletal Provider 08/14/22 10/08/22 Brea Quinn APRN BARREL BRIDGE ASSEMBLER [address] [place] [address] 632135 Nurse Practitioner Dermatology 09/21/22 Brea Quinn APRN BARREL BRIDGE ASSEMBLER [address] [place] [address] [place] [address] Assigned Surgical Provider 10/09/22 05/01/24 [place] [address] [place] [address], [place] [address] Assigned Musculoskeletal Provider 10/09/22 05/01/24 Livan Sharif MD [address], [facility] [address] [place] [address] Assigned Heart and Vascular Provider 11/06/22 11/12/22 Catherine Cm MD [address] [facility] [address] [place] [address] Assigned Heart and Vascular Provider 11/13/22 05/27/23 Sydnie Martinez RN Personal Advocate & Liaison (PAL) Family Medicine 03/28/23 07/31/23 Alfonso Renteria MD [address] [facility] 200 [place] [address] Assigned Neuroscience Provider 04/02/23 Cheng Todd PA-C [address] [place] [address] [phone] Assigned PCP 04/30/23 07/15/23 Radha Lomeli APRN BARREL BRIDGE ASSEMBLER [address] [place] [address] Assigned Heart and Vascular Provider 05/28/23 Jelena David OD [address] [facility] [place] [address] MD Ophthalmology 06/15/23 Pao Joseph, RN Personal Advocate & Liaison (PAL) Nurse 08/01/23 11/07/23 Esha Grimm PA-C [address] [place] [address] Assigned PCP 07/16/23 Valery Veronica PA-C [address] [place] [address] Physician General Car Yard Supervisor Dermatology 09/19/23 Rey Tay MD [address] [place] [address] Gastroenterology 09/20/23 Rocky Zepeda DO [address] [place] [address] 022805 Physician Gastroenterology 09/20/23 Philip Dumont MD [address] [place] [address] 968185 Physician Ophthalmology 09/22/23 Meredith Carrera PA-C [address] [place] [address] 617875 Assigned Gastroenterology Provider 11/01/23 Neil Kent MD [address] 175240 Dermatology 11/02/23 [place] [address] [place] [address] Neurological Surgery 12/26/23 Audrey Waite PA-C 500 [place] [address] Physician General Car Yard Supervisor Dermatology 02/28/24 Valery Veronica PA-C [address] [place] [address] Physician General Car Yard Supervisor Dermatology 04/10/24 Herminia Hatch MD [address] [place] [address] [phone] Assigned Rheumatology Provider 07/02/24 documented as of this encounter
--- OUTSIDE RECORDS SUMMARY | 2024-07-22 20:46 | XMS_ITS | Encounter Summary ---
Author Organization [place] Address [address] [place] [address] Care Team Providers Care Bar Roller Name Role Phone Lita Oseguera Unavailable Unavailable Marija Edgar FUEL TECHNICIAN PENSIONS RETIREMENT PLAN SPECIALIST Primary Care Provider + Chanelle Mccann FUEL TECHNICIAN CNM Unavailab le Marija Edgar APRN PENSIONS RETIREMENT PLAN SPECIALIST Unavailable Mynor Broussard MD Unavailable [phone] Keisha Dotson MD Unavailable [phone] Galo Burrell MD Unavailable Unavailable Diana Desir [facility] Unavailable Rain Galaviz PA-C Unavailable Summer Lara MD Unavailable Summer Lara MD Unavailable [phone] Summer Lara MD Unavailable [phone] Tavia Wyatt MD Unavailable Johnny Murillo MD Unavailable Erica Farrell FUEL TECHNICIAN PENSIONS RETIREMENT PLAN SPECIALIST Unavailable Teresita Bean [facility] Unavailable Tavia Wyatt MD Unavailable [phone] DesirDiana [facility] Unavailable [phone] Rich Barrett MD Unavailable [phone] Neil Kent MD Unavailable Roney StoryM Unavailable [phone] Erica Farrell APRN PENSIONS RETIREMENT PLAN SPECIALIST Unavailable + Diana Desir [facility] Unavailable [phone] Jelena David OD Unavailable Galo Burrell MD Unavailable Unavailable Livan Sharif MD Unavailable + Livan Sharif MD Unavailable + Catherine Cm MD Unavailable + Valery VeronicaC Unavailable [phone] Catherine Cm MD Unavailable + Johnny Murillo MD Unavailable [phone] Brea Quinn FUEL TECHNICIAN PENSIONS RETIREMENT PLAN SPECIALIST Unavailable [phone] Brea Quinn FUEL TECHNICIAN PENSIONS RETIREMENT PLAN SPECIALIST Unavailable [phone] Jose Francisco Johnson MD Unavailable Livan Sharif MD Unavailable + Catherine Cm MD Unavailable + Sydnie Martinez RN Unavailable Unavailable Alfonso Renteria MD Unavailable [phone] Esha GrimmC Primary Care Provider Cheng Todd PA-C Unavailable [phone] Radha Lomeli APRN PENSIONS RETIREMENT PLAN SPECIALIST Unavailable [phone] Jelena David OD Unavailable Jake, Pao RN Unavailable Unavailable [place], Esha M PA-C Unavailable [phone] Valery VeronicaC Unavailable Rey Tay MD Unavailable Duane Rockyanne [facility] Unavailable Philip Dumont MD Unavailable Meredith Carrera PA-C Unavailable Neil eKnt MD Unavailable Juan Pablo Emmanuel MD Unavailable Audrey Waite PA-C Unavailable Valery Veronica PA-C Unavailable Herminia Hatch MD Unavailable Encounter Details Date Type Department Care Team (Late st Contact Info) Description 04/17/2021 [facility] [address] [address] [place] 576[place] [address] Social History Tobacco Use Types Packs/Day Years [...] week 08/07/2020 How often do you attend [facility] or mandaen services? More than 4 times [...] Answer Date Recorded PHQ-2 Score 0 04/02/2021 [facility] of Occupat [...] a senior care (including now)? No 08/11/2020 [place] Depression Scale Answer Date Recorded [place] Depression Score 5 01/14/2021 Last EPDS Self Harm Result Not on file 01/14 Education Answer Date Recorded What is the highest level of school you have completed or the highest degree you have received? 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 INVENTORY ADMINISTRATOR Gender Identity Female 03/02/2021 5:45 PM [...] Description 10/23/2024 9:30 AM CDT Office Visit [facility] Neurology [facility] - [address], [address] [place] [address] [place] [address] [place], [place] 259937 Johnny Penn MD [address] [place] [id number] 11/28/2024 7:45 AM CDT Virtual Visit [facility] Gastroenterology Clinic [address] 4th [place] [address] Meredith Carrera PA-C [address] [place] [address] 784785 documented as of this encounter Visit Diagnoses Not on filedocumented in this encounter Additional Health Concerns Infection Onset Date Last Indicated Resolved Time Rule Out COVID-19 05/11/2021 05/11/2021 05/13/2021 10:18 AM CDT Rule Out COVID-19 07/13/2021 07/13/2021 07/14/2021 3:04 PM INVENTORY ADMINISTRATOR Rule Out COVID-19 07/18/2021 07/18/2021 07/20/2021 1:56 PM INVENTORY ADMINISTRATOR COVID-19 07/18/2021 07/18/2021 08/08/2021 11:3 9 PM INVENTORY ADMINISTRATOR Rule Out COVID-19 12/18/2021 12/18/2021 12/19/2021 11:34 AM CDT Rule Out COVID-19 02/24/2022 02/24/2022 02/25/2022 1:08 PM CDT Rule Out COVID-19 04/26/2022 04/26/2022 04/26/2022 6:47 AM CDT Rule Out COVID-19 05/17/2022 05/17/2022 05/17/2022 10:20 PM INVENTORY ADMINISTRATOR Rule Out COVID-19 06/09/2022 06/09/2022 06/09/2022 9:35 AM INVENTORY ADMINISTRATOR COVID-19 06/09/2022 06/09/2022 06/30/2022 11:4 1 PM INVENTORY ADMINISTRATOR Rule Out COVID-19 11/10/2022 11/10/2022 11/11/2022 12:17 PM CDT Rule Out COVID-19 03/07/2023 03/07/2023 03/07/2023 1:20 PM CDT Rule Out COVID-19 12/26/2023 12/26/2023 12/26/2023 9:50 AM CDT Rule Out COVID-19 04/09/2024 04/09/2024 04/10/2024 6:48 PM CDT Assessment Noted Time PHQ-9 Depression Total Score: 2 04/02/20 10:19 AM CDT documented as of this encounter Care Teams Bar Roller Relationship Specialty Start Date End Date Marija Edgar APRN PENSIONS RETIREMENT PLAN SPECIALIST PCP - General Nurse Practitioner 04/30/20 04/14/23 Esha Grimm PA-C [address] [place] [phone] PCP - General Family Medicine 05/04/23 Lita Oseguera Personal Advocate & Liaison (PAL) 02/28/20 03/27/23 Chanelle Mccann APRN CNM [address] [place] [address] 200 [place], [place] 449087 Assigned OBGYN Provider 05/02/2005/09 Marija Edgar APRN PENSIONS RETIREMENT PLAN SPECIALIST Assigned PCP 06/08/20 04/29/23 Mynor Broussard MD [address] [facility] 500 [place] [address] Assigned Surgical Provider 06/01/20 11/28/21 Keisha Dotson MD 9 [place] [address] Assigned Neuroscience Provider 06/04/20 04/01/23 Galo Burrell MD Assigned Heart and Vascular Provider 10/05/20 04/02/22 Diana Desir, [facility] [address] [place] [address] Pharmacist Pharmacist 04/17/21 Rain Galaviz PA-C [address] [place] [address] [place] [address] Physician Transformer Molder Dermatology 04/28/21 Summer Lara MD [address] [place] [address] 146434 Assigned OBGYN Provider 05/10/2105/23 Summer Lara MD [address] [place] [address] [phone] Assigned OBGYN Provider 05/31/21 2 Summer Lara MD [address] [place] [address] 275084 Assigned OBGYN Provider 05/24/2105/30 Tavia Wyatt MD [address] [place] [address] [phone] Dermatology 07/14/21 Johnny Murillo MD [address] [place], [place] [address] [place], [place] 608314 Assigned Musculoskeletal Provider 08/30/21 03/17/22 Erica Farrell APRN PENSIONS RETIREMENT PLAN SPECIALIST [address] [facility] [address] [place] [address] Nurse Practitioner Cardiovascular Disease 09/09/21 Teresita Bean, [facility] [address] [facility] [address] [place] [phone] Pharmacist Pharmacist 09/24/21 09/29/21 Tavia Wyatt MD [address] [place] [address] Assigned Surgical Provider 11/29/21 05/07/22 Diana Desir, [facility] [address] [place] [address] Assigned MTM Pharmacist 01/02/22 Rich Barrett MD [address] 933315 Physician Ophthalmology 01/21/22 Neil Kent MD 500 [place], [place] 389535 Dermatology 02/24/22 Roney Story DPM [address] [facility] [address] [place], [place] 19412337 Assigned Musculoskeletal Provider 03/20/22 08/13/22 Erica Farrell APRN PENSIONS RETIREMENT PLAN SPECIALIST 1700 [place] [address] Assigned Heart and Vascular Provider 04/03/22 04/16/22 Diana Desir, [facility] [address] [place] [address] Assigned MTM Pharmacist 04/07/22 Jelena David OD [address] [facility] [place] [address] Assigned Surgical Provider 05/08/22 10/08/22 Galo Burrell MD Assigned Heart and Vascular Provider 04/17/22 06/11/22 Livan Sharif MD [address], [place] [address] [place] 381265 Cardiovascular Disease 05/14/22 Livan Sharif MD [address], [place] [address] [place] [address] Assigned Heart and Vascular Provider 06/12/22 07/23/22 Catherine mC MD [address] [place] [address] [place] 832395 Cardiovascular Disease 07/21/22 Valery Veronica PA-C 909 [place], [place] 550785 Physician Transformer Molder Dermatology 07/21/22 Catherine Cm MD [address] [place] [address] [place] [address] Assigned Heart and Vascular Provider 07/24/22 11/05/22 Johnny Murillo MD [address] [place] [address] Assigned Musculoskeletal Provider 08/14/22 10/08/22 Brea Quinn APRN PENSIONS RETIREMENT PLAN SPECIALIST 500 [place], [place] 832895 Nurse Practitioner Dermatology 09/21/22 Brea Quinn APRN PENSIONS RETIREMENT PLAN SPECIALIST 64[address] [facility] [place] 049832 Assigned Surgical Provider 10/09/22 05/01/24 [place] [address] [facility] 300 [place], [place] 315397 Assigned Musculoskeletal Provider 10/09/22 05/01/24 Livan Sharif MD [address], [facility] [address] [place] [address] Assigned Heart and Vascular Provider 11/06/22 11/12/22 Catherine Cm MD [address] [facility] [address] [place], [place] 212835 Assigned Heart and Vascular Provider 11/13/22 05/27/23 Sydnie Martinez, VJ Personal Advocate & Liaison (PAL) Family Medicine 03/28/23 07/31/23 Alfonso Renteria MD [address] [facility] 200 [place], [place] 436036 Assigned Neuroscience Provider 04/02/23 Cheng Todd PA-C [address] [place] [address] [phone] Assigned PCP 04/30/23 07/15/23 Radha Lomeli APRN PENSIONS RETIREMENT PLAN SPECIALIST [address] [facility] [address] [place], [place] 708535 Assigned Heart and Vascular Provider 05/28/23 Jelena David OD [address] [facility] [place] [address] Ophthalmology 06/15/23 Pao Joseph, VJ Personal Advocate & Liaison (PAL) Nurse 08/01/23 11/07/23 Esha Grimm PA-C [address] [place] [phone] Assigned PCP 07/16/23 Valery Veronica PA-C [address] [place] [address] 168645 Physician Transformer Molder Dermatology 09/19/23 Rey Tay MD [address] [place] [address] [phone] Gastroenterology 09/20/23 Rocky Zepeda DO [address] [place] [address] 507075 Physician Gastroenterology 09/20/23 Philip Dumont MD [address] [place] [address] [phone] Physician Ophthalmology 09/22/23 Meredith Carrera PA-C 909 [place] [address] Assigned Gastroenterology Provider 11/01/23 Neil Kent MD [address] [place] [address] Dermatology 11/02/23 [place] [address] [address] Neurological Surgery 12/26/23 Audrey Waite PA-C 500 [place] [address] Physician Transformer Molder Dermatology 02/28/24 Valery Veronica PA-C [address] [place] [address] Physician Transformer Molder Dermatology 04/10/24 Herminia Hatch MD [facility]5 [place] [address] Assigned Rheumatology Provider 07/02/24 documented as of this encounter
--- OUTSIDE RECORDS SUMMARY | 2024-07-22 20:46 | XMS_ITS | Encounter Summary ---
Author Organization [place] Address [address] [place] [address] Care Team Providers Care Business Development Executive Name Role Phone Lita Oseguera Unavailable Unavailable Marija Edgar DRYWALL HANGER HELPER ANALYST MICROBIOLOGY LAB Primary Care Provider + Chanelle Mccann DRYWALL HANGER HELPER CNM Unavailab le Marija Edgar APRN ANALYST MICROBIOLOGY LAB Unavailable Mynor Broussard MD Unavailable [phone] Keisha Dotson MD Unavailable Galo Burrell MD Unavailable Unavailable Diana Desir [facility] Unavailable Rain Galaviz PA-C Unavailable [phone] Summer Lara MD Unavailable [phone] Summer Lara MD Unavailable [phone] Summer Lara MD Unavailable [phone] Tavia Wyatt MD Unavailable Johnny Murillo MD Unavailable Erica Farrell DRYWALL HANGER HELPER ANALYST MICROBIOLOGY LAB Unavailable Teresita Bean [facility] Unavailable [phone] Tavia Wyatt MD Unavailable [phone] DesirDiana [facility] Unavailable [phone] Rich Barrett MD Unavailable [phone] Neil Kent MD Unavailable Roney StoryM Unavailable [phone] Erica Farrell APRN ANALYST MICROBIOLOGY LAB Unavailable + Diana Desir [facility] Unavailable [phone] Jelena David OD Unavailable Galo Burrell MD Unavailable Unavailable Livan Sharif MD Unavailable + Livan Sharif MD Unavailable + Catherine Cm MD Unavailable + Valery VeronicaC Unavailable [phone] Catherine Cm MD Unavailable + Johnny Murillo MD Unavailable [phone] Brea Quinn DRYWALL HANGER HELPER ANALYST MICROBIOLOGY LAB Unavailable [phone] Brea Quinn DRYWALL HANGER HELPER ANALYST MICROBIOLOGY LAB Unavailable [phone] Jose Francisco Johnson MD Unavailable Livan Sharif MD Unavailable + Catherine Cm MD Unavailable + Sydnie Martinez RN Unavailable Unavailable Alfonso Renteria MD Unavailable [phone] Esha GrimmC Primary Care Provider Cheng Todd PA-C Unavailable [phone] Radha Lomeli APRN ANALYST MICROBIOLOGY LAB Unavailable [phone] Jelena David OD Unavailable [phone] Jake, Pao RN Unavailable Unavailable Alfa, Esha M PA-C Unavailable [phone] Valery VeronicaC Unavailable [phone] Rey Tay MD Unavailable Duane Rockyanne STEVENS Unavailable Philip Dumont MD Unavailable Meredith Carrera PAUcheC Unavailable [phone] Neil Kent MD Unavailable Juan Pablo Emmanuel MD Unavailable Audrey Waite PA-C Unavailable [phone] Valery Veronica PA-C Unavailable Herminia Hatch MD Unavailable Encounter Details Date Type Department Care Team (Late st Contact Info) Description 04/17/2021 [facility] [address] [address] Marija Edgar APRN ANALYST MICROBIOLOGY LAB [facility] [place] [address] Social History Tobacco Use Types [...] week 08/07/2020 How often do you attend [employer] or evangelical services? More than 4 times per year [...] 04/02/2021 [facility] - Occupational Stress Questionnaire Answer Date [...] in a alf (including now)? No 08/11/2020 [place] Depression Scale Answer Date Recorded [place] Depression Score 5 01/14/2021 Last EPDS Self Harm Result Not on file 01/14 Education Answer Date Recorded What is the highest level of school you have completed or the highest degree you have received? 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 ORDNANCE MECHANIC Gender Identity Female 03/02/2021 5:45 PM [...] Description 10/23/2024 9:30 AM CDT Office Visit [facility] Neurology [facility] - [address], [address] [place] [address] Juan [place] [id number] [place] [address] [address] [place], [place] [address] Johnny Penn MD [address] [place] [id number] 11/28/2024 7:45 AM CDT Virtual Visit [facility] [address] 4th [place] [address] Meredith Carrera PA-C [address] [place] [address] documented as of this encounter Visit Diagnoses Not on filedocumented in this encounter Additional Health Concerns Infection Onset Date Last Indicated Resolved Time Rule Out COVID-19 05/11/2021 05/11/2021 05/13/2021 10:18 AM CDT Rule Out COVID-19 07/13/2021 07/13/2021 07/14/2021 3:04 PM ORDNANCE MECHANIC Rule Out COVID-19 07/18/2021 07/18/2021 07/20/2021 1:56 PM ORDNANCE MECHANIC COVID-19 07/18/2021 07/18/2021 08/08/2021 11:3 9 PM ORDNANCE MECHANIC Rule Out COVID-19 12/18/2021 12/18/2021 12/19/2021 11:34 AM CDT Rule Out COVID-19 02/24/2022 02/24/2022 02/25/2022 1:08 PM CDT Rule Out COVID-19 04/26/2022 04/26/2022 04/26/2022 6:47 AM CDT Rule Out COVID-19 05/17/2022 05/17/2022 05/17/2022 10:20 PM ORDNANCE MECHANIC Rule Out COVID-19 06/09/2022 06/09/2022 06/09/2022 9:35 AM ORDNANCE MECHANIC COVID-19 06/09/2022 06/09/2022 06/30/2022 11:4 1 PM ORDNANCE MECHANIC Rule Out COVID-19 11/10/2022 11/10/2022 11/11/2022 12:17 PM CDT Rule Out COVID-19 03/07/2023 03/07/2023 03/07/2023 1:20 PM CDT Rule Out COVID-19 12/26/2023 12/26/2023 12/26/2023 9:50 AM CDT Rule Out COVID-19 04/09/2024 04/09/2024 04/10/2024 6:48 PM CDT Assessment Noted Time PHQ-9 Depression Total Score: 2 04/02/20 10:19 AM CDT documented as of this encounter Care Teams Business Development Executive Relationship Specialty Start Date End Date Marija Edgar APRN ANALYST MICROBIOLOGY LAB PCP - General Nurse Practitioner 04/30/20 04/14/23 Esha Grimm PA-C [address] [place] [phone] PCP - General Family Medicine 05/04/23 Lita Oseguera Personal Advocate & Liaison (PAL) 02/28/20 03/27/23 [place] [address] [facility] 200 [place] [address] Assigned OBGYN Provider 05/02/2005/09 Marija Edgar APRN ANALYST MICROBIOLOGY LAB Assigned PCP 06/08/20 04/29/23 Mynor Broussard MD 6363 [facility] 500 [place] [address] Assigned Surgical Provider 06/01/20 11/28/21 Keisha Dotson MD 909 [place] [address] Assigned Neuroscience Provider 06/04/20 04/01/23 Galo Burrell MD Assigned Heart and Vascular Provider 10/05/20 04/02/22 Diana Desir, [facility] [address] [place] [address] Pharmacist Pharmacist 04/17/21 Rain Galaviz PA-C [address] [place] [address] [place] [address] Physician Flux Tube Attendant Dermatology 04/28/21 Summer Lara MD [address] [place] [address] 763784 Assigned OBGYN Provider 05/10/2105/23 Summer Lara MD [address] [place] [address] 186234 Assigned OBGYN Provider 05/31/21 2 Summer Lara MD [address] [place] [address] Assigned OBGYN Provider 05/24/2105/30 Tavia Wyatt MD [address] [place] [address] 148254 Dermatology 07/14/21 Johnny Murillo MD [facility] [address] [place], [place] 27[address] Assigned Musculoskeletal Provider 08/30/21 03/17/22 Erica Farrell APRN ANALYST MICROBIOLOGY LAB 6405 [facility] [address] [place] [address] Nurse Practitioner Cardiovascular Disease 09/09/21 Teresita Bean [facility] [address] [place] [address] Pharmacist Pharmacist 09/24/21 09/29/21 Tavia Wyatt MD [address] [place] [address] Assigned Surgical Provider 11/29/21 05/07/22 [facility] 3033 [place] [address] Assigned MTM Pharmacist 01/02/22 Rich Barrett MD [address] 158[address] Physician Ophthalmology 01/21/22 Neil Kent MD 500 [place] [address] Dermatology 02/24/22 [place] DPM [address] [facility] 300 [place], [place] 930437 Assigned Musculoskeletal Provider 03/20/22 08/13/22 Erica Farrell APRN ANALYST MICROBIOLOGY LAB 1700 [place] [address] Assigned Heart and Vascular Provider 04/03/22 04/16/22 Diana Desir, [facility] [address] [place] [address] Assigned MTM Pharmacist 04/07/22 Jelena David OD [address] [facility] [place] [address] Assigned Surgical Provider 05/08/22 10/08/22 Galo Burrell MD Assigned Heart and Vascular Provider 04/17/22 06/11/22 Livan Sharif MD [address] [place] 821125 Cardiovascular Disease 05/14/22 Livan Sharif MD [address] [place] 326965 Assigned Heart and Vascular Provider 06/12/22 07/23/22 Catherine Cm MD [address] [place] 550105 Cardiovascular Disease 07/21/22 Valery Veronica PA-C 909 [place], [place] 023215 Physician Flux Tube Attendant Dermatology 07/21/22 Catherine Cm MD [address] [place] [address] Assigned Heart and Vascular Provider 07/24/22 11/05/22 Johnny Murillo MD [address] [facility] [address] [place] [address] Assigned Musculoskeletal Provider 08/14/22 10/08/22 Brea Quinn APRN ANALYST MICROBIOLOGY LAB 500 [place], [place] 714185 Nurse Practitioner Dermatology 09/21/22 Brea Quinn APRN ANALYST MICROBIOLOGY LAB 6401 [facility] [place] 343982 Assigned Surgical Provider 10/09/22 05/01/24 [place] [address] 207567 Assigned Musculoskeletal Provider 10/09/22 05/01/24 Livan Sharif MD [address], [facility] [address] [place] [address] Assigned Heart and Vascular Provider 11/06/22 11/12/22 Catherine Cm MD [address] [facility] [address] [place] [address] Assigned Heart and Vascular Provider 11/13/22 05/27/23 Sydnie Martinez RN Personal Advocate & Liaison (PAL) Family Medicine 03/28/23 07/31/23 Alfonso Renteria MD [address] [facility] 200 [place], [place] 572986 Assigned Neuroscience Provider 04/02/23 Cheng Todd PA-C [address] [place] [address] Assigned PCP 04/30/23 07/15/23 Radha Lomeli APRN ANALYST MICROBIOLOGY LAB 6405 [facility] [address] [place] [address] Assigned Heart and Vascular Provider 05/28/23 Jelena David OD [address] [facility] [place] [address] MD Ophthalmology 06/15/23 Pao Josehp, VJ Personal Advocate & Liaison (PAL) Nurse 08/01/23 11/07/23 Esha Grimm PA-C [address] [place] [phone] Assigned PCP 07/16/23 Valery Veronica PA-C [address] [place] [address] 325465 Physician Flux Tube Attendant Dermatology 09/19/23 Rey Tay MD [address] [place] [address] 841115 Gastroenterology 09/20/23 Rocky Zepeda DO [address] [place] [address] 247595 Physician Gastroenterology 09/20/23 Philip Dumont MD [address] [place] [address] 972325 Physician Ophthalmology 09/22/23 Meredith Carrera PA-C 909 [place] [address] Assigned Gastroenterology Provider 11/01/23 Neil Kent MD [address] [place] [address] Dermatology 11/02/23 [place] [address] 223747 Neurological Surgery 12/26/23 Audrey Waite PA-C 500 [place] [address] Physician Flux Tube Attendant Dermatology 02/28/24 Valery Veronica PA-C [address] [place] [address] Physician Flux Tube Attendant Dermatology 04/10/24 Herminia Hatch MD 1875 [place] [address] Assigned Rheumatology Provider 07/02/24 documented as of this encounter
--- OUTSIDE RECORDS SUMMARY | 2024-07-22 20:46 | XMS_ITS | Encounter Summary ---
Author Organization [place] Address [address] [place] [address] Care Team Providers Care Tax Expert Name Role Phone Lita Oseguera Unavailable Unavailable Marija Edgar APRN THERAPY TECH Primary Care Provider + Marija Edgar APRN THERAPY TECH Unavailable Mynor Broussard MD Unavailable [phone] Keisha Dotson MD Unavailable Galo Burrell MD Unavailable Unavailable Diana Desir [facility] Unavailable [phone] Rain Galvaiz PA-C Unavailable Summer Lara MD Unavailable [phone] Tavia Wyatt MD Unavailable Johnny Murillo MD Unavailable [phone] Erica Farrell APRN THERAPY TECH Unavailable Teresita Bean [facility] Unavailable Tavia Wyatt MD Unavailable Diana Desir [facility] Unavailable Rich Barrett MD Unavailable [phone] Neil Kent MD Unavailable Roney Story DPM Unavailable Erica Farrell [employer] WEBSPHERE COMMERCE CONSULTANT THERAPY TECH Unavailable Thang Diana Stanislav [facility] Unavailable Jelena David OD Unavailable Galo Burrell MD Unavailable Unavailable Livan Sharif MD Unavailable + Livan Sharif MD Unavailable + Catherine Cm MD Unavailable + Valery Veronica PA-C Unavailable [phone] Catherine Cm MD Unavailable + Johnny Murillo MD Unavailable [phone] Brea Quinn [employer] WEBSPHERE COMMERCE CONSULTANT THERAPY TECH Unavailable [phone] Brea Quinn IBM WEBSPHERE COMMERCE CONSULTANT THERAPY TECH Unavailable [phone] Jose Francisco Johnson MD Unavailable Livan Sharif MD Unavailable + IsCatherine hobbs MD Unavailable + Sydnie Martinez RN Unavailable Unavailable Alfonso Renteria MD Unavailable Esha Grimm-C Primary Care Provider Cheng Todd PA-C Unavailable Radha Lomeli [employer] WEBSPHERE COMMERCE CONSULTANT THERAPY TECH Unavailable [phone] Jelena David OD Unavailable [phone] Pao Joseph RN Unavailable Unavailable Esha Grimm-C Unavailable [phone] JeremíasValery damon PA-C Unavailable [phone] Rey Tay MD Unavailable Rocky Zepeda DO Unavailable Philip Dumont MD Unavailable [phone] Meredith CarreraC Unavailable [phone] Neil Kent MD Unavailable Juan Pablo Emmanuel MD Unavailable [phone] Audrey WaiteC Unavailable [phone] Valery Veronica PA-C Unavailable [phone] Herminia Hatch MD Unavailable Encounter Details Date Type Department Care Team (Late st Contact Info) Description 08/04/2021 [facility] [address] [address] Medina Diopview Social History Tobacco [...] you attend [facility] or pentecostalism services? More than 4 times [...] Answer Date Recorded PHQ-2 Score 0 04/02/2021 [facility] - [...] in a jail (including now)? No 08/11/2020 [place] Depression Scale Answer Date Recorded [place] Depression Score 5 01/14/2021 Last EPDS Self Harm Result Not on file 01/14 Education Answer Date Recorded What is the highest level of school you have completed or the highest degree you have received? 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 AUTOCAD OPERATOR Gender Identity Female 03/02/2021 5:45 PM CDT Sexual Orientation Straight 02/28/2020 12 :51 AM CDT COVID-19 Exposure Response Date Recorded In the last month, have you been in contact with someone who was confirmed or suspected to have Coronavirus / COVID-19? No / Unsure 08/03/2021 2:24 PM AUTOCAD OPERATOR documented as of this encounter Plan of Treatment Upcoming Encounters Date Type Department Care Team (Late st Contact Info) Description 10/23/2024 9:30 AM CDT Office Visit [facility] Neurology Clinics [address], [address] [place] [address] [place] [address] [address] [place] [address] Johnny Penn MD [address] [place] [phone] 11/28/2024 7:45 AM CDT Virtual Visit [facility] Gastroenterology Clinic [address] 4th [place] [address] Meredith Carrera PA-C [address] [place] [address] documented as of this encounter Visit Diagnoses Not on filedocumented in this encounter Additional Health Concerns Infection Onset Date Last Indicated Resolved Time COVID-19 07/18/2021 07/18/2021 08/08/2021 11:3 9 PM AUTOCAD OPERATOR Rule Out COVID-19 12/18/2021 12/18/2021 12/19/2021 11:34 AM CDT Rule Out COVID-19 02/24/2022 02/24/2022 02/25/2022 1:08 PM CDT Rule Out COVID-19 04/26/2022 04/26/2022 04/26/2022 6:47 AM CDT Rule Out COVID-19 05/17/2022 05/17/2022 05/17/2022 10:20 PM AUTOCAD OPERATOR Rule Out COVID-19 06/09/2022 06/09/2022 06/09/2022 9:35 AM AUTOCAD OPERATOR COVID-19 06/09/2022 06/09/2022 06/30/2022 11:4 1 PM AUTOCAD OPERATOR Rule Out COVID-19 11/10/2022 11/10/2022 11/11/2022 12:17 PM CDT Rule Out COVID-19 03/07/2023 03/07/2023 03/07/2023 1:20 PM CDT Rule Out COVID-19 12/26/2023 12/26/2023 12/26/2023 9:50 AM CDT Rule Out COVID-19 04/09/2024 04/09/2024 04/10/2024 6:48 PM CDT Assessment Noted Time PHQ-9 Depression Total Score: 2 04/02/20 21 10:19 AM CDT documented as of this encounter Care Teams Tax Expert Relationship Specialty Start Date End Date Marija Edgar APRN CNP PCP - General Nurse Practitioner 04/30/20 04/14/23 Esha Grimm PA-C [address] [place] [address] PCP - General Family Medicine 05/04/23 Lita Oseguera Personal Advocate & Liaison (PAL) 02/28/20 03/27/23 Marija Edgar APRN THERAPY TECH Assigned PCP 06/08/20 04/29/23 Mynor Broussard MD 6363 [facility] 500 [place] [address] Assigned Surgical Provider 06/01/20 11/28/21 Keisha Dotson MD 909 [place], [place] 6[address] Assigned Neuroscience Provider 06/04/20 04/01/23 Galo Burrell MD Assigned Heart and Vascular Provider 10/05/20 04/02/22 Diana Desir, [facility] [address] [place] [address] Pharmacist Pharmacist 04/17/21 Rain Galaviz PA-C [address] [place] [address] [address] [place] [facility] [address] Physician Lead Game Designer Dermatology 04/28/21 Summer Lara MD [address] [place] [address] 040924 Assigned OBGYN Provider 05/31/21 2 Tavia Wyatt MD [address] [place] [address] Dermatology 07/14/21 Johnny Murillo MD [address] [place] [address] Assigned Musculoskeletal Provider 08/30/21 03/17/22 Erica Farrell APRN THERAPY TECH [address] [facility] [address] [place] [address] Nurse Practitioner Cardiovascular Disease 09/09/21 Teresita Bean, [facility] [address] [place] [phone] Pharmacist Pharmacist 09/24/21 09/29/21 Tavia Wyatt MD [address] [place], [place] 5440[address] Assigned Surgical Provider 11/29/21 05/07/22 Diana Desir, [facility] [address] [place] [address] Assigned MTM Pharmacist 01/02/22 Rich Barrett MD 516 [facility] 9[address] [place], [place] [address] Physician Ophthalmology 01/21/22 Neil Kent MD 500 [place], [place] 208015 Dermatology 02/24/22 Roney Story DPM [address] [facility] [address] [place] [address] Assigned Musculoskeletal Provider 03/20/22 08/13/22 Erica Farrell APRN THERAPY TECH 1700 [place] [address] Assigned Heart and Vascular Provider 04/03/22 04/16/22 Diana Desir, [facility] [address] [place], [place] 518736 Assigned MTM Pharmacist 04/07/22 Jelena David OD [address] [facility] [place] [address] Assigned Surgical Provider 05/08/22 10/08/22 Galo Burrell MD Assigned Heart and Vascular Provider 04/17/22 06/11/22 Livan Sharif MD [address] [place] [address] Cardiovascular Disease 05/14/22 Livan Sharif MD [address] [place] [address] Assigned Heart and Vascular Provider 06/12/22 07/23/22 Catherine Cm MD [address] [place] [address]195 Cardiovascular Disease 07/21/22 Valery Veronica, PA-C 909 [place] [address] Physician Lead Game Designer Dermatology 07/21/22 Catherine Cm MD [address] [facility] [address] [place] [address] Assigned Heart and Vascular Provider 07/24/22 11/05/22 Johnny Murillo MD [facility] [address] [address] Assigned Musculoskeletal Provider 08/14/22 10/08/22 Brea Quinn APRN THERAPY TECH [address] [place] [address] 888865 Nurse Practitioner Dermatology 09/21/22 Brea Quinn APRN THERAPY TECH [address] [place] [address] [place] 673442 Assigned Surgical Provider 10/09/22 05/01/24 [place] [address] [address] Assigned Musculoskeletal Provider 10/09/22 05/01/24 Livan Sharif MD [address] [place] 8[address]65 Assigned Heart and Vascular Provider 11/06/22 11/12/22 Catherine Cm MD [address] [place] 096725 Assigned Heart and Vascular Provider 11/13/22 05/27/23 Sydnie Martinez, VJ Personal Advocate & Liaison (PAL) Family Medicine 03/28/23 07/31/23 Alfonso Renteria MD 5775 [facility] [address] [place] [address] Assigned Neuroscience Provider 04/02/23 Cheng Todd PA-C [address] [place] [address] Assigned PCP 04/30/23 07/15/23 Radha Lomeli APRN THERAPY TECH [address] [facility] [address] [place] [address] Assigned Heart and Vascular Provider 05/28/[address] David [place] [address] [facility] [place] [address] Ophthalmology 06/15/23 Pao Joseph, VJ Personal Advocate & Liaison (PAL) Nurse 08/01/23 11/07/23 Esha Grimm PA-C [address] [place] [address] Assigned PCP 07/16/23 Valery Veronica PA-C 909 [place], [place] 5155[address] Physician Lead Game Designer Dermatology 09/19/23 Rey Tay MD 909 [place] [address] Gastroenterology 09/20/23 Rocky Zepeda DO 500 [place] [address] Physician Gastroenterology 09/20/23 Philip Dumont MD 516 [place] [address] Physician Ophthalmology 09/22/23 Meredith Carrera PA-C [address] [place] [address] Assigned Gastroenterology Provider 11/01/23 Neil Kent MD [address] [address] MD Dermatology 11/02/23 [place] [address] [address] Neurological Surgery 12/26/23 Audrey Waite PA-C 500 [place] [address] Physician Lead Game Designer Dermatology 02/28/24 Valery Veronica PA-C [address] [place] [address] Physician Lead Game Designer Dermatology 04/10/24 Herminia Hatch MD [facility]5 [place], [place] 56[address] Assigned Rheumatology Provider 07/02/24 documented as of this encounter
--- OUTSIDE RECORDS SUMMARY | 2024-07-22 20:47 | XMS_ITS | Encounter Summary ---
Author Organization [facility] Address [address] [place] [address] Care Team Providers Care General Farm Manager Name Role Phone Lita Oseguera Unavailable Unavailable Marija Edgar APRN SECTIONAL BELT MOLD ASSEMBLER Primary Care Provider + Chanelle Mccann APPAREL STOCK CHECKER CNM Unavailab le Kyara De La Fuente RN Unavailable [phone] Marija Edgar APRN SECTIONAL BELT MOLD ASSEMBLER Unavailable [phone] Mynor Broussard MD Unavailable [phone] Keisha Dotson MD Unavailable [phone] Stacey Briones FOLLOW UP SPECIALIST Unavailable Mary Mejia Unavailable Unavailable Galo Burrell MD Unavailable Unavailable Cristina Wood Unavailable Lesley Moody CHW Unavailable [phone] Meredith Bedoya Unavailable Unavailable Cristina Wood Unavailable Diana Desir [facility] Unavailable [phone] Rain Galaviz PA-C Unavailable Summer Lara MD Unavailable [phone] Summer Lara MD Unavailable [phone] Summer Lara MD Unavailable [phone] Tavia Wyatt MD Unavailable [phone] Johnny Murillo MD Unavailable [phone] Erica Farrell APRN SECTIONAL BELT MOLD ASSEMBLER Unavailable Teresita Bean [facility] Unavailable Tavia Wyatt MD Unavailable [phone] [phone] Diana [place] [facility] Unavailable [phone] Rich Barrett MD Unavailable Neil Kent MD Unavailable Roney Story DPM Unavailable [phone] Erica Farrell APPAREL STOCK CHECKER SECTIONAL BELT MOLD ASSEMBLER Unavailable Diana Desir [facility] Unavailable [phone] Tommy Davidmao Garcia Unavailable [phone] Galo Burrell MD Unavailable Unavailable Livan Sharif MD Unavailable + Livan Sharif MD Unavailable + Catherine Cm MD Unavailable + Valery Veronica PA-C Unavailable [phone] Catherine Cm MD Unavailable + Johnny Murillo MD Unavailable +1- Brea Quinn APPAREL STOCK CHECKER SECTIONAL BELT MOLD ASSEMBLER Unavailable +1- Brea Quinn APPAREL STOCK CHECKER SECTIONAL BELT MOLD ASSEMBLER Unavailable [phone] Jose Francisco Johnson MD Unavailable Livan Sharif MD Unavailable + Catherine Cm MD Unavailable + Sydnie Martinez RN Unavailable Unavailable Alfonso Renteria MD Unavailable [phone] Esha Grimm PA-C Primary Care Provider [phone] Cheng Todd PA-C Unavailable Radha Lomeli APRN SECTIONAL BELT MOLD ASSEMBLER Unavailable Jelena David OD Unavailable Pao Joseph RN Unavailable Unavailable Esha Grimm PA-C Unavailable [phone] Valery Veronica PA-C Unavailable Rey Tay MD Unavailable Rocky Zepeda DO Unavailable Philip Dumont MD Unavailable Meredith Carrera-C Unavailable Neil Kent MD Unavailable Juan Pablo Emmanuel MD Unavailable Audrey Waite PA-C Unavailable Valery Veronica-C Unavailable [phone] Herminia Hatch MD Unavailable Encounter Details Date Type Department Care Team (Late st Contact Info) Description 10/02/2020 MyC Medical Advice [facility] Care Coordination [facility] [address] [place] [phone] Stacey Briones, [facility] Social History Tobacco Use Types Packs/Day [...] Answer Date Recorded PHQ-2 Score 3 09/29/2020 [facility] [place] of Occupat ional Health - Occupational Stress [...] PM CDT Legal Sex Female 4:13 AM SENIOR ADVISORY Gender Identity Female 03/02/2021 5:45 PM CDT [...] Visit [facility] Neu[facility] - [place] [address] [facility], [address] [place] [phone] [place] [address] [place], [place] [phone] Johnny Penn MD [address] [place] [address] 11/28/2024 7:45 AM CDT Virtual Visit [facility]ology Clinic [address] 4th [place] [phone] Meredith Carrera PA-C [address] [place] [address] [phone] documented as of this encounter Visit Diagnoses Not on filedocumented in this encounter Additional Health Concerns Infection Onset Date Last Indicated Resolved Time Rule Out COVID-19 11/05/2020 11/05/2020 11/06/2020 1:09 PM CDT Rule Out COVID-19 05/11/2021 05/11/2021 05/13/2021 10:18 AM CDT Rule Out COVID-19 07/13/2021 07/13/2021 07/14/2021 3:04 PM SENIOR ADVISORY Rule Out COVID-19 07/18/2021 07/18/2021 07/20/2021 1:56 PM SENIOR ADVISORY COVID-19 07/18/2021 07/18/2021 08/08/2021 11:3 9 PM SENIOR ADVISORY Rule Out COVID-19 12/18/2021 12/18/2021 12/19/2021 11:34 AM CDT Rule Out COVID-19 02/24/2022 02/24/2022 02/25/2022 1:08 PM CDT Rule Out COVID-19 04/26/2022 04/26/2022 04/26/2022 6:47 AM CDT Rule Out COVID-19 05/17/2022 05/17/2022 05/17/2022 10:20 PM SENIOR ADVISORY Rule Out COVID-19 06/09/2022 06/09/2022 06/09/2022 9:35 AM SENIOR ADVISORY COVID-19 06/09/2022 06/09/2022 06/30/2022 11:4 1 PM SENIOR ADVISORY Rule Out COVID-19 11/10/2022 11/10/2022 11/11/2022 12:17 PM CDT Rule Out COVID-19 03/07/2023 03/07/2023 03/07/2023 1:20 PM CDT Rule Out COVID-19 12/26/2023 12/26/2023 12/26/2023 9:50 AM CDT Rule Out COVID-19 04/09/2024 04/09/2024 04/10/2024 6:48 PM CDT Assessment Noted Time PHQ-9 Depression Total Score: 6 09/30/19 3:25 PM CDT documented as of this encounter Care Teams General Farm Manager Relationship Specialty Start Date End Date Marija Edgar APRN SECTIONAL BELT MOLD ASSEMBLER PCP - General Nurse Practitioner 04/30/20 04/14/23 Esha Grimm PA-C [address] [place] [phone] PCP - General Family Medicine 05/04/23 Lita Oseguera Personal Advocate & Liaison (PAL) 02/28/20 03/27/23 Chanelle Mccann APRN CNM [address] [facility], [facility] 200 [place] [address] Assigned OBGYN Provider 05/02/2005/09 Kyara De La Fuente, RN Specialty Combining Machine Operator Neurology 06/04/20 03/05/21 Marija Edgar APRN SECTIONAL BELT MOLD ASSEMBLER Assigned PCP 06/08/20 04/29/23 Mynor Broussard MD [address] [place] [address] Assigned Surgical Provider 06/01/20 11/28/21 Keisha Dotson MD 909 [place] [address] Assigned Neuroscience Provider 06/04/20 04/01/23 Stacey Briones, [facility] Lead Combining Machine Operator Primary Care - CC 08/11/2012/30 Mary Mejia Financial Resource Worker 09/02/20 10/06/20 Galo Burrell MD Assigned Heart and Vascular Provider 10/05/20 04/02/22 Cristina Wood Financial Resource Worker 10/07/20 10/14/20 Lesley Moody, [facility] Community Health Worker 10/23/2012/30 Meredith Bedoya Financial Resource Worker 10/23/20 11/23/20 Cristina Wood Financial Resource Worker 02/09/21 02/09/21 Diana Desir, [facility] [address] [place] [address] Pharmacist Pharmacist 04/17/21 Rain Galaviz PA-C [address] [place] [address] [address] [place] [address] Physician Digital Imaging Specialist Dermatology 04/28/21 Summer Lara MD [address] [place] [address] Assigned OBGYN Provider 05/10/2105/23 Summer Lara MD [address] [place] [address] Assigned OBGYN Provider 05/31/21 2 Summer Lara MD [address] [place] [address] Assigned OBGYN Provider 05/24/2105/30 Tavia Wyatt MD [address] [place] [address] Dermatology 07/14/21 Johnny Murillo MD [address] [place] [address] Assigned Musculoskeletal Provider 08/30/21 03/17/22 Erica Farrell APRN SECTIONAL BELT MOLD ASSEMBLER [address] [facility] [address] [place] [phone] Nurse Practitioner Cardiovascular Disease 09/09/21 Teresita Bean [facility] [address] [place] [address] Pharmacist Pharmacist 09/24/21 09/29/21 Tavia Wyatt MD [address] [place] [address] Assigned Surgical Provider 11/29/21 05/07/[address] [facility] [address] [place] [address] Assigned MTM Pharmacist 01/02/22 Rich Barrett MD [address] [facility] [address] [place], [place] 334875 Physician Ophthalmology 01/21/22 Neil Kent MD 500 [place], [place] 415395 Dermatology 02/24/22 Roney Story DPM [address] [facility] [address] [place] [address] Assigned Musculoskeletal Provider 03/20/22 08/13/22 Erica Farrell APRN SECTIONAL BELT MOLD ASSEMBLER 1700 [place] [address] Assigned Heart and Vascular Provider 04/03/22 04/16/[address] [facility] [address] [place] [address] Assigned MTM Pharmacist 04/07/22 Jelena David OD [address] [facility] [place] [address] Assigned Surgical Provider 05/08/22 10/08/22 Galo Burrell MD Assigned Heart and Vascular Provider 04/17/22 06/11/22 Livan Sharif MD [address] [facility] [address] [place] 526[address] Cardiovascular Disease 05/14/22 Livan Sharif MD [address], [facility] [address] [place] 115[address] Assigned Heart and Vascular Provider 06/12/22 07/23/22 Catherine Cm MD [address] [facility]00 [place] [address] Cardiovascular Disease 07/21/22 Valery Veronica, PA-C [address] [place] [address] Physician Digital Imaging Specialist Dermatology 07/21/22 Catherine Cm MD [address] [place] 7[address]1200 [place] [address] Assigned Heart and Vascular Provider 07/24/22 11/05/22 Johnny Murillo MD [address] [place] [address] 400694 Assigned Musculoskeletal Provider 08/14/22 10/08/22 Brea Quinn APRN SECTIONAL BELT MOLD ASSEMBLER [address] [place] [address] Nurse Practitioner Dermatology 09/21/22 Brea Quinn APRN SECTIONAL BELT MOLD ASSEMBLER [address] [place] [address] [facility] [place] [address] Assigned Surgical Provider 10/09/22 05/01/24 [place] [address] [place] [address] Assigned Musculoskeletal Provider 10/09/22 05/01/24 Livan Sharif MD [address], [facility] [address] [place] [address] Assigned Heart and Vascular Provider 11/06/22 11/12/22 Catherine Cm MD [address] [facility] [address] [place] 616365 Assigned Heart and Vascular Provider 11/13/22 05/27/23 Sydnie Martinez RN Personal Advocate & Liaison (PAL) Family Medicine 03/28/23 07/31/23 Alfonso Renteria MD 57[address] [facility] 200 [place] [address] Assigned Neuroscience Provider 04/02/23 Cheng Todd PA-C [address] [place] [address] Assigned PCP 04/30/23 07/15/23 Radha Lomeli, APPAREL STOCK CHECKER SECTIONAL BELT MOLD ASSEMBLER [address] [place] [address] Assigned Heart and Vascular Provider 05/28/23 Jelena David OD [address] [facility] [place] [address] Ophthalmology 06/15/23 Pao Joseph, VJ Personal Advocate & Liaison (PAL) Nurse 08/01/23 11/07/23 Esha Grimm PAUcheC [address] [facility] [place] [address]66[address]83 Assigned PCP 07/16/23 Valery Veronica PA-C [address] [place] [address] Physician Digital Imaging Specialist Dermatology 09/19/23 Rey Tay MD [address] [place] [address] MD Gastroenterology 09/20/23 Rocky Zepeda DO [address] [place] [address] 806425 Physician Gastroenterology 09/20/23 Philip Dumont MD [address] [place] [address] 302735 Physician Ophthalmology 09/22/23 Meredith Carrera PA-C [address] [place] [address] Assigned Gastroenterology Provider 11/01/23 Neil Kent MD [address] [address] Dermatology 11/02/23 [place] [address] [place] 8[address] Neurological Surgery 12/26/23 Audrey Waite PA-C [address] [place] [address] 828295 Physician Digital Imaging Specialist Dermatology 02/28/24 Valery Veronica PA-C [address] [place] [address] Physician Digital Imaging Specialist Dermatology 04/10/24 Herminia Hatch MD [address] [place] [address] [phone] Assigned Rheumatology Provider 07/02/24 documented as of this encounter
--- OUTSIDE RECORDS SUMMARY | 2024-07-22 20:47 | XMS_ITS | Encounter Summary ---
Author Organization [facility] Address [address] [place] [address] Care Team Providers Care Material Preparation Worker Name Role Phone Lita Oseguera Unavailable Unavailable Marija Edgar APRN METALS SALES REPRESENTATIVE Primary Care Provider + Chanelle Mccann APRN CNM Unavailab le Kyara De La Fuente RN Unavailable [phone] Marija Edgar APRN METALS SALES REPRESENTATIVE Unavailable [phone] Mynor Broussard MD Unavailable [phone] Keisha Dotson MD Unavailable Stacey Briones CADASTRAL ENGINEER Unavailable [phone] Lesley Moody CHW Unavailable Mary Mejia Unavailable Unavailable Lita Oseguera Unavailable Unavailable Galo Burrell MD Unavailable Unavailable Cristina Wood Unavailable Lesley Moody CHW Unavailable Meredith Bedoya Unavailable Unavailable Cristina Wood Unavailable Diana Desir [facility] Unavailable Rain Galaviz PA-C Unavailable [phone] Summer Lara MD Unavailable [phone] Summer Lara MD Unavailable [phone] Summer Lara MD Unavailable +[phone] Tavia Wyatt MD Unavailable [phone] Johnny Murillo MD Unavailable +1- Erica Farrell APRN METALS SALES REPRESENTATIVE Unavailable + Vikas Teresita Ka Walter H Unavailable Tavia Wyatt MD Unavailable [phone] Diana Desir [facility] Unavailable [phone] Rich Barrett MD Unavailable [phone] Neil Kent MD Unavailable Roney StoryM Unavailable [phone] Erica Farrell APRN METALS SALES REPRESENTATIVE Unavailable + Diana Desir [facility] Unavailable [phone] Jelena David OD Unavailable [phone] Galo Burrell MD Unavailable Unavailable Livan Sharif MD Unavailable + Livan Sharif MD Unavailable + Catherine Cm MD Unavailable + Valery Veronica PA-C Unavailable [phone] Catherine Cm MD Unavailable + Johnny Murillo MD Unavailable +1- Brea Quinn APRN METALS SALES REPRESENTATIVE Unavailable +[phone] Brea Quinn APRN METALS SALES REPRESENTATIVE Unavailable [phone] Jose Francisco Johnson MD Unavailable + Livan Sharif MD Unavailable + Catherine Cm MD Unavailable + Sydnie Martinez RN Unavailable Unavailable Alfonso Renteria MD Unavailable [phone] Esha Grimm PA-C Primary Care Provider Perez Chengjc Fish PA-C Unavailable LomeliRadha APRN METALS SALES REPRESENTATIVE Unavailable Jelena David OD Unavailable Pao Joseph RN Unavailable Unavailable Esha Grimm PA-C Unavailable [phone] Valery Veronica PA-C Unavailable Rey Tay MD Unavailable Rocky Zepeda DO Unavailable Philip Dumont MD Unavailable Meredith Carrera PA-C Unavailable Neil Kent MD Unavailable Juan Pablo Emmanuel MD Unavailable Audrey Waite PA-C Unavailable [phone] Valery Veronica PA-C Unavailable [phone] Herminia Hatch MD Unavailable Encounter Details Date Type Department Care Team (Late st Contact Info) Description 09/02/2020 MyC Medical Advice [facility] Care Coordination [facility] [address] [place] [phone] Mary Mejia Social History Tobacco Use Types [...] Answer Date Recorded PHQ-2 Score 0 08/12/2020 [facility] [place] of Occupat ional Health - Occupational Stress [...] CDT Legal Sex Female 4:13 AM MANAGER OF BROADCAST CONTENT Gender Identity Female 03/02/2021 5:45 PM CDT Sexual Orientation Straight 02/28/2020 12 :51 AM CDT COVID-19 Exposure Response Date Recorded In the last month, have you been in contact with someone who was confirmed or suspected to have Coronavirus / COVID-19? No / Unsure 09/05/2020 2:50 PM MANAGER OF BROADCAST CONTENT documented as of this encounter Plan of Treatment Upcoming Encounters Date Type Department Care Team (Late st Contact Info) Description 10/23/2024 9:30 AM CDT Office Visit [facility] Neurology Clinics - [place] [address] [facility], [address] [place] [phone] [place] [address] [place], [place] 4140[address] Johnny Penn MD [address] [place] [phone] 11/28/2024 7:45 AM CDT Virtual Visit [facility] Gastroenterology Clinic [address] 4th [place] [phone] Meredith Carrera PA-C [address] [place] [address] 080855 documented as of this encounter Visit Diagnoses Not on filedocumented in this encounter Additional Health Concerns Infection Onset Date Last Indicated Resolved Time Rule Out COVID-19 09/24/2020 09/24/2020 09/24/2020 9:24 AM CDT Rule Out COVID-19 11/05/2020 11/05/2020 11/06/2020 1:09 PM CDT Rule Out COVID-19 05/11/2021 05/11/2021 05/13/2021 10:18 AM CDT Rule Out COVID-19 07/13/2021 07/13/2021 07/14/2021 3:04 PM MANAGER OF BROADCAST CONTENT Rule Out COVID-19 07/18/2021 07/18/2021 07/20/2021 1:56 PM MANAGER OF BROADCAST CONTENT COVID-19 07/18/2021 07/18/2021 08/08/2021 11:3 9 PM MANAGER OF BROADCAST CONTENT Rule Out COVID-19 12/18/2021 12/18/2021 12/19/2021 11:34 AM CDT Rule Out COVID-19 02/24/2022 02/24/2022 02/25/2022 1:08 PM CDT Rule Out COVID-19 04/26/2022 04/26/2022 04/26/2022 6:47 AM CDT Rule Out COVID-19 05/17/2022 05/17/2022 05/17/2022 10:20 PM MANAGER OF BROADCAST CONTENT Rule Out COVID-19 06/09/2022 06/09/2022 06/09/2022 9:35 AM MANAGER OF BROADCAST CONTENT COVID-19 06/09/2022 06/09/2022 06/30/2022 11:4 1 PM MANAGER OF BROADCAST CONTENT Rule Out COVID-19 11/10/2022 11/10/2022 11/11/2022 12:17 PM CDT Rule Out COVID-19 03/07/2023 03/07/2023 03/07/2023 1:20 PM CDT Rule Out COVID-19 12/26/2023 12/26/2023 12/26/2023 9:50 AM CDT Rule Out COVID-19 04/09/2024 04/09/2024 04/10/2024 6:48 PM CDT Assessment Noted Time PHQ-9 Depression Total Score: 9 06/25/20 20 7:04 AM MANAGER OF BROADCAST CONTENT documented as of this encounter Care Teams Material Preparation Worker Relationship Specialty Start Date End Date Marija Edgar APRN METALS SALES REPRESENTATIVE PCP - General Nurse Practitioner 04/30/20 04/14/23 Esha Grimm PA-C [address] [place] [phone] PCP - General Family Medicine 05/04/23 Lita Oseguera Personal Advocate & Liaison (PAL) 02/28/20 03/27/23 Chanelle Mccann APRN CNM [address] [address] Assigned OBGYN Provider 05/02/2005/09 Kyara De La Fuente, RN Specialty Supervisor Counseling And Guidance Neurology 06/04/20 03/05/21 Marija Edgar APRN METALS SALES REPRESENTATIVE Assigned PCP 06/08/20 04/29/23 Mynor Broussard MD [address] 914215 Assigned Surgical Provider 06/01/20 11/28/21 Keisha Dotson MD [address] [place] [address] Assigned Neuroscience Provider 06/04/20 04/01/23 Stacey Briones, [facility] Lead Supervisor Counseling And Guidance Primary Care - CC 08/11/2012/30 Lesley Moody, [facility] Community Health Worker 08/11/2010/01 Mary Mejia Financial Resource Worker 09/02/20 10/06/20 Lita Oseguera Personal Advocate & Liaison (PAL) Family Medicine 09/10/20 09/21/20 Galo Burrell MD Assigned Heart and Vascular Provider 10/05/20 04/02/22 Cristina Wood Financial Resource Worker 10/07/20 10/14/20 Lesley Moody, [facility] Community Health Worker 10/23/2012/30 Meredith Bedoya Financial Resource Worker 10/23/20 11/23/20 Cristina Wood Financial Resource Worker 02/09/21 02/09/21 Diana Desir, [facility] [address] [place] [address] Pharmacist Pharmacist 04/17/21 Rain Galaviz PA-C [address] [place] [address] [place] [address] Physician Galley Boy Dermatology 04/28/21 Summer Lara MD [address] [place] [address] Assigned OBGYN Provider 05/10/2105/23 Summer Lara MD [address] [place] [address] 089124 Assigned OBGYN Provider 05/31/21 2 Summer Lara MD [address] [place] [address] 313414 Assigned OBGYN Provider 05/24/2105/30 Tavia Wyatt MD [address] [place] [address] 218024 Dermatology 07/14/21 Johnny Murillo MD [facility] [facility] [address] [place] [address] Assigned Musculoskeletal Provider 08/30/21 03/17/22 Erica Farrell APRN METALS SALES REPRESENTATIVE [address] [facility] [address] [place] [address] Nurse Practitioner Cardiovascular Disease 09/09/21 Teresita Bean, [facility] [address] [place] [address] Pharmacist Pharmacist 09/24/21 09/29/21 Tavia Wyatt MD [address] [place] [address] Assigned Surgical Provider 11/29/21 05/07/22 Diana Desir, [facility] [address] [place] [address] Assigned MTM Pharmacist 01/02/22 Rich Barrett MD [address] [address] Physician Ophthalmology 01/21/22 Neil Kent MD 500 [place] [address] Dermatology 02/24/22 Roney Story DPM [address] [facility] [address] [place] [address] Assigned Musculoskeletal Provider 03/20/22 08/13/22 Erica Farrell APRN METALS SALES REPRESENTATIVE [address] [place] [address] Assigned Heart and Vascular Provider 04/03/22 04/16/22 Diana Desir, [facility] [address] [place] [address] Assigned MTM Pharmacist 04/07/22 Jelena David OD [address] [facility] [place] [address] Assigned Surgical Provider 05/08/22 10/08/22 Galo Burrell MD Assigned Heart and Vascular Provider 04/17/22 06/11/22 Livan Sharif MD [address], [facility] [address] [place] [phone] Cardiovascular Disease 05/14/22 Livan Sharif MD [address], [facility] [address] [place] [phone] Assigned Heart and Vascular Provider 06/12/22 07/23/22 Catherine Cm MD [address] [facility] [place] 7[address]45 Cardiovascular Disease 07/21/22 Valery Veronica, PA-C [address] [place] [address] 197425 Physician Galley Boy Dermatology 07/21/22 Catherine Cm MD [address] [facility] [place] 7[address]195 Assigned Heart and Vascular Provider 07/24/22 11/05/22 Johnny Murillo MD [facility] [phone] Assigned Musculoskeletal Provider 08/14/22 10/08/22 Brea Quinn APRN METALS SALES REPRESENTATIVE [address] [place] [address] [phone] Nurse Practitioner Dermatology 09/21/22 Brea Quinn APRN METALS SALES REPRESENTATIVE [address] [place] [address] Assigned Surgical Provider 10/09/22 05/01/24 [place] [address] [place] [address] Assigned Musculoskeletal Provider 10/09/22 05/01/24 Livan Sharif MD [address] [facility] [address] [place] [address] Assigned Heart and Vascular Provider 11/06/22 11/12/22 Catherine Cm MD [address] [place] [address] [place] [address] Assigned Heart and Vascular Provider 11/13/22 05/27/23 Sydnie Martinez, RN Personal Advocate & Liaison (PAL) Family Medicine 03/28/23 07/31/23 Alfonso Renteria MD [address] [facility] 200 [place], [place] 9929[address] Assigned Neuroscience Provider 04/02/23 Cheng Todd PA-C [address] [place] [address] [phone] Assigned PCP 04/30/23 07/15/23 Radha Lomeli APRN METALS SALES REPRESENTATIVE [address] [place] [address] Assigned Heart and Vascular Provider 05/28/23 Jelena David OD [address] [facility] [place] [address] MD Ophthalmology 06/15/23 Pao Joseph, RN Personal Advocate & Liaison (PAL) Nurse 08/01/23 11/07/23 Esha Grimm PA-C [address] [place] [phone] Assigned PCP 07/16/23 Valery Veronica PA-C [address] [place] [address] Physician Galley Boy Dermatology 09/19/23 Rey Tay MD [address] [place] [address] Gastroenterology 09/20/23 Rocky Zepeda DO [address] [place] [address] 729005 Physician Gastroenterology 09/20/23 Philip Dumont MD [address] [place] [address] 486635 Physician Ophthalmology 09/22/23 Meredith Carrera PA-C [address] [place] [address] 751645 Assigned Gastroenterology Provider 11/01/23 Neil Kent MD [address] 043710 Dermatology 11/02/23 [place] [address] [address] Neurological Surgery 12/26/23 Audrey Waite PA-C 500 [place] [address] Physician Galley Boy Dermatology 02/28/24 Valery Veronica PA-C [address] [place] [address] Physician Galley Boy Dermatology 04/10/24 Herminia Hatch MD [address] [place] [address] Assigned Rheumatology Provider 07/02/24 documented as of this encounter
--- OUTSIDE RECORDS SUMMARY | 2024-07-22 20:47 | XMS_ITS | Encounter Summary ---
Author Organization [place] Address [address] [place] [address] Care Team Providers Care Net Web Developer Name Role Phone Lita Oseguera Unavailable Unavailable Marija Edgar APRN BOAT BUILDER Primary Care Provider + Chanelle Mccann APRN CNM Unavailab le Kyara De La Fuente RN Unavailable [phone] Marija Edgar APRN BOAT BUILDER Unavailable Mynor Broussard MD Unavailable [phone] Keisha Dotson MD Unavailable Stacey Briones DRY END TESTER Unavailable [phone] Lesley Moody CHW Unavailable [phone] Mary Mejia Unavailable Unavailable Lita Oseguera Unavailable Unavailable Galo Burrell MD Unavailable Unavailable Cristina Wood Unavailable Lesley Moody CHW Unavailable Meredith Bedoya Unavailable Unavailable Cristina Wood Unavailable Diana Desir [facility] Unavailable [phone] Rain Galaviz PA-C Unavailable Summer Lara MD Unavailable [phone] Summer Lara MD Unavailable [phone] Summer Lara MD Unavailable [phone] Tavia Wyatt MD Unavailable [phone] Johnny Murillo MD Unavailable +1- Erica Farrell APRN BOAT BUILDER Unavailable + Vikas Teresita Ka Walter H Unavailable Tavia Wyatt MD Unavailable [phone] Diana Desir [facility] Unavailable [phone] Rich Barrett MD Unavailable [phone] Neil Kent MD Unavailable Roney StoryM Unavailable [phone] Erica Farrell APRN BOAT BUILDER Unavailable + Diana Desir [facility] Unavailable [phone] Jelena David OD Unavailable [phone] Galo Burrell MD Unavailable Unavailable Livan Sharif MD Unavailable + Livan Sharif MD Unavailable + Catherine Cm MD Unavailable + Valery Veronica PA-C Unavailable [phone] Catherine Cm MD Unavailable + Johnny Murillo MD Unavailable +1- Brea Quinn APRN BOAT BUILDER Unavailable +[phone] Brea Quinn APRN BOAT BUILDER Unavailable [phone] Jose Francisco Johnson MD Unavailable + Livan Sharif MD Unavailable + Catherine Cm MD Unavailable + Sydnie Martinez RN Unavailable Unavailable Alfonso Renteria MD Unavailable [phone] Esha Grimm PA-C Primary Care Provider Perez Chengjc Fish PA-C Unavailable Radha Lomeli APRN BOAT BUILDER Unavailable Jelena David OD Unavailable Pao Joseph RN Unavailable Unavailable Esha Grimm PA-C Unavailable [phone] Valery Veronica PA-C Unavailable Rey Tay MD Unavailable Rocky Zepeda DO Unavailable Philip Dumont MD Unavailable Meredith Carrera PA-C Unavailable Neil Kent MD Unavailable Juan Pablo Emmanuel MD Unavailable Audrey Waite PA-C Unavailable JeremíasValery damon PA-C Unavailable Herminia Hatch MD Unavailable Reason for Visit * Reason Onset Date Comments MyChart Communication 09/02/2020 Encounter Details Date Type Department Care Team (Latest Contact Info) Description 09/02/2020 MyC Medical Advice [address] [address] Marija Edgar APRN BOAT BUILDER [address] [place] [phone] MyChart Communication Social History Tobacco [...] 0 08/12/2020 [facility] - Occupational Stress [...] PM CDT Legal Sex Female 4:13 AM LINE UP WORKER Gender Identity Female 03/02/2021 5:45 PM CDT Sexual Orientation Straight 02/28/2020 12 :51 AM CDT COVID-19 Exposure Response Date Recorded In the last month, have you been in contact with someone who was confirmed or suspected to have Coronavirus / COVID-19? No / Unsure 09/05/2020 2:50 PM LINE UP WORKER documented as of this encounter Miscellaneous Notes * Telephone Encounter - Ever Cardozo MA - 09/03/2020 10:34 AM CST Responded to patient as below. Ever Cardozo SERVICE AND REPAIR SUPERVISOR ([facility]) UP WORKER documented in this encounter Plan of Treatment Upcoming Encounters Date Type Department Care Team (Late st Contact Info) Description 10/23/2024 9:30 AM CDT Office Visit [facility] [address], [address] [place] [phone] [place] [address] [place] [address] 718[address] Johnny Penn MD 0245 [place], [place] [address] 11/28/2024 7:45 AM CDT Virtual Visit [facility] [address] 4th [place] [phone] Meredith Carrera PA-C [address] [place] [address] [phone] documented as of this encounter Visit Diagnoses Not on filedocumented in this encounter Additional Health Concerns Infection Onset Date Last Indicated Resolved Time Rule Out COVID-19 09/24/2020 09/24/2020 09/24/2020 9:24 AM CDT Rule Out COVID-19 11/05/2020 11/05/2020 11/06/2020 1:09 PM CDT Rule Out COVID-19 05/11/2021 05/11/2021 05/13/2021 10:18 AM CDT Rule Out COVID-19 07/13/2021 07/13/2021 07/14/2021 3:04 PM LINE UP WORKER Rule Out COVID-19 07/18/2021 07/18/2021 07/20/2021 1:56 PM LINE UP WORKER COVID-19 07/18/2021 07/18/2021 08/08/2021 11:3 9 PM LINE UP WORKER Rule Out COVID-19 12/18/2021 12/18/2021 12/19/2021 11:34 AM CDT Rule Out COVID-19 02/24/2022 02/24/2022 02/25/2022 1:08 PM CDT Rule Out COVID-19 04/26/2022 04/26/2022 04/26/2022 6:47 AM CDT Rule Out COVID-19 05/17/2022 05/17/2022 05/17/2022 10:20 PM LINE UP WORKER Rule Out COVID-19 06/09/2022 06/09/2022 06/09/2022 9:35 AM LINE UP WORKER COVID-19 06/09/2022 06/09/2022 06/30/2022 11:4 1 PM LINE UP WORKER Rule Out COVID-19 11/10/2022 11/10/2022 11/11/2022 12:17 PM CDT Rule Out COVID-19 03/07/2023 03/07/2023 03/07/2023 1:20 PM CDT Rule Out COVID-19 12/26/2023 12/26/2023 12/26/2023 9:50 AM CDT Rule Out COVID-19 04/09/2024 04/09/2024 04/10/2024 6:48 PM CDT Assessment Noted Time PHQ-9 Depression Total Score: 9 06/25/20 20 7:04 AM LINE UP WORKER documented as of this encounter Care Teams Net Web Developer Relationship Specialty Start Date End Date Marija Edgar APRN CNP PCP - General Nurse Practitioner 04/30/20 04/14/23 Esha Grimm PA-C [address] [place] [phone] PCP - General Family Medicine 05/04/23 Lita Oseguera Personal Advocate & Liaison (PAL) 02/28/20 03/27/23 Chanelle Mccann APRN CNM [id number] [place] [address] 200 [place] [address] Assigned OBGYN Provider 05/02/2005/09 Kyara De La Fuente, RN Specialty Mechanical Assembly Technician Neurology 06/04/20 03/05/21 Marija Edgar APRN BOAT BUILDER Assigned PCP 06/08/20 04/29/23 Mynor Broussard MD 6363 [facility] 500 [place], [place] [address] Assigned Surgical Provider 06/01/20 11/28/21 Keisha Dotson MD [address] [place] [address] Assigned Neuroscience Provider 06/04/20 04/01/23 Stacey Briones, DRY END TESTER Lead Mechanical Assembly Technician Primary Care - CC 08/11/2012/30 Lesley [...] 02/09/21 Diana Desir, [facility] [address] [place], [place] [address] Pharmacist Pharmacist 04/17/21 Rain Galaviz PA-C [address] [place] [address] [address] [place], [place] [phone] Physician Roll Changer Dermatology 04/28/21 Summer Lara MD [address] [place] [address] 051044 Assigned OBGYN Provider 05/10/2105/23 Summer Lara MD [address] [place] [address] 879554 Assigned OBGYN Provider 05/31/21 2 Summer Lara MD [address] [place] [address] 099434 Assigned OBGYN Provider 05/24/2105/30 Tavia Wyatt MD [address] [place] [address] 695994 Dermatology 07/14/21 Johnny Murillo MD [address] [place] [address] Assigned Musculoskeletal Provider 08/30/21 03/17/22 Erica Farrell APRN BOAT BUILDER 6405 [facility] [address] [place] [address] Nurse Practitioner Cardiovascular Disease 09/09/21 Teresita Bean [facility] [address] [place] [phone] Pharmacist Pharmacist 09/24/21 09/29/21 Tavia Wyatt MD [address] [place], [place] 564390 Assigned Surgical Provider 11/29/21 05/07/22 [facility] 3033 [place] [address] Assigned MTM Pharmacist 01/02/22 Rich Barrett MD 516 [facility] [address] [place], [place] [address] Physician Ophthalmology 01/21/22 Neil Kent MD 500 [place], [place] 040345 Dermatology 02/24/22 Roney Story DPM [address] [facility] [address] [place] [address] Assigned Musculoskeletal Provider 03/20/22 08/13/22 Erica Farrell APRN BOAT BUILDER 1700 [place] [address] Assigned Heart and Vascular Provider 04/03/22 04/16/22 Diana Desir, [facility] 3033 [place] [address] Assigned MTM Pharmacist 04/07/22 Jelena David OD [address] [place] [address] Assigned Surgical Provider 05/08/22 10/08/22 Galo Burrell MD Assigned Heart and Vascular Provider 04/17/22 06/11/22 Livan Sharif MD [address] [place] [address] Cardiovascular Disease 05/14/22 Livan Sharif MD [address] [place] [address] Assigned Heart and Vascular Provider 06/12/22 07/23/22 Catherine Cm MD [address] [place] [address] Cardiovascular Disease 07/21/22 Valery Veronica PA-C 909 [place] [address] Physician Roll Changer Dermatology 07/21/22 Catherine Cm MD [address] [place] [address] Assigned Heart and Vascular Provider 07/24/22 11/05/22 Johnny Murillo MD [address] [place] [address] Assigned Musculoskeletal Provider 08/14/22 10/08/22 Brea Quinn APRN BOAT BUILDER 500 [place] [address] Nurse Practitioner Dermatology 09/21/22 Brea Quinn APRN BOAT BUILDER 6401 [facility] [place] [address] Assigned Surgical Provider 10/09/22 05/01/24 [place] [address] [place] [address] 255747 Assigned Musculoskeletal Provider 10/09/22 05/01/24 Livan Sharif MD 6405 [facility] [address] [place] [address] Assigned Heart and Vascular Provider 11/06/22 11/12/22 Catherine Cm MD 6405 [facility] S [facility] [address] [place] 37[address] Assigned Heart and Vascular Provider 11/13/22 05/27/23 Sydnie Martinez RN Personal Advocate & Liaison (PAL) Family Medicine 03/28/23 07/31/23 Alfonso Renteria MD [address] 200 [place] [address] Assigned Neuroscience Provider 04/02/23 Cheng Todd PA-C [address] [place] [address] Assigned PCP 04/30/23 07/15/23 Radha Lomeli APRN BOAT BUILDER 6405 [facility] [address] [place] [address] Assigned Heart and Vascular Provider 05/28/23 Jelena David OD [address] [place] [address] Ophthalmology 06/15/23 Pao Joseph, VJ Personal Advocate & Liaison (PAL) Nurse 08/01/23 11/07/23 Esha Grimm PA-C [address] [place] [phone] Assigned PCP 07/16/23 Valery Veronica PA-C [address] [place] [address] 178905 Physician Roll Changer Dermatology 09/19/23 Rey Tay MD [address] [place] [address] 887625 Gastroenterology 09/20/23 Rocky Zepeda DO [address] [place] [address] 693475 Physician Gastroenterology 09/20/23 Philip Dumont MD 516 [place] [address] Physician Ophthalmology 09/22/23 Meredith Carrera PA-C [address] [place] [address] Assigned Gastroenterology Provider 11/01/23 Neil Kent MD [address] [address] Dermatology 11/02/23 [place] [address] [place] [address] [address] Neurological Surgery 12/26/23 Audrey Waite PA-C [address] [place] [address] Physician Roll Changer Dermatology 02/28/24 Valery Veronica PA-C [address]61 [place] [address] Physician Roll Changer Dermatology 04/10/24 Herminia Hatch MD [facility]5 [place], [place] 06824125 Assigned Rheumatology Provider 07/02/24 documented as of this encounter
--- OUTSIDE RECORDS SUMMARY | 2024-07-22 20:47 | XMS_ITS | Encounter Summary ---
Author Organization [place] Address [address] [place] [address] Care Team Providers Care Battery Container Inspector Name Role Phone Lita Oseguera Unavailable Unavailable Marija Edgar APRN PASSENGER ATTENDANT Primary Care Provider + Chanelle Mccann APRN CNM Unavailab le Kyara De La Fuente RN Unavailable [phone] Marija Edgar APRN PASSENGER ATTENDANT Unavailable Mynor Broussard MD Unavailable [phone] Keisha Dotson MD Unavailable Galo Burrell MD Unavailable Unavailable Cristina Wood Unavailable Diana Desir [facility] Unavailable [phone] Rain Galaviz PA-C Unavailable Summer Lara MD Unavailable [phone] Summer Lara MD Unavailable [phone] Summer Lara MD Unavailable [phone] Tavia Wyatt MD Unavailable Johnny Murillo MD Unavailable Erica Farrell APRN PASSENGER ATTENDANT Unavailable Vikas Teresita Watson [facility] Unavailable Tavia yWatt MD Unavailable Diana Desir [facility] Unavailable [phone] Rich Barrett MD Unavailable Neil Kent MD Unavailable Roney Story DPM Unavailable [phone] Erica Farrell APRN PASSENGER ATTENDANT Unavailable Diana Desir [facility] Unavailable [phone] Jelena David Unavailable Galo Burrell MD Unavailable Unavailable Livan Sharif MD Unavailable Livan Sharif MD Unavailable + Catherine Cm MD Unavailable + Valery Veronica-C Unavailable [phone] Catherine Cm MD Unavailable + Johnny Murillo MD Unavailable [phone] Brea Quinn SENIOR APPLICATIONS ANALYST PASSENGER ATTENDANT Unavailable [phone] Brea Quinn SENIOR APPLICATIONS ANALYST PASSENGER ATTENDANT Unavailable [phone] Jose Francisco Johnson MD Unavailable Livan Sharif MD Unavailable + Catherine Cm MD Unavailable + Sydnie Martinez RN Unavailable Unavailable Alfonso Renteria MD Unavailable [phone] Esha Grimm PA-C Primary Care Provider Cheng Todd PA-C Unavailable [phone] Radha Lomeli SENIOR APPLICATIONS ANALYST PASSENGER ATTENDANT Unavailable Jelena David OD Unavailable Pao Joseph RN Unavailable Unavailable Esha Grimm PA-C Unavailable [phone] Valery Veronica PA-C Unavailable Rey Tay MD Unavailable Rocky Zepeda DO Unavailable Philip Dumont MD Unavailable Meredith Carrera PA-C Unavailable Neil Kent MD Unavailable Juan Pablo Emmanuel MD Unavailable Audrey Waite PA-C Unavailable [phone] JeremíasValery damon PA-C Unavailable [phone] Herminia Hatch MD Unavailable Encounter Details Date Type Department Care Team (Late st Contact Info) Description 01/06/2021 Orders Only [facility] - Surgical Specialties Service Line 2450 [place] [address] Saurabh Marcial MD [address] [facility] 200 [place] [address] Indication for care in labor [...] Answer Date Recorded PHQ-2 Score 3 09/29/2020 [facility] [place] [facility] - Occupational Stress [...] PM CDT Legal Sex Female 4:13 AM CONVERTER SKIMMER Gender Identity Female 03/02/2021 5:45 PM CDT [...] Description 10/23/2024 9:30 AM CDT Office Visit [address], [address] [place] [address] [place] [address] [place] [place] [address] Johnny Penn MD [address] [place], [place] [address] 11/28/2024 7:45 AM CDT Virtual Visit [facility] [address] 4th [place] [address] Meredith Carrera PA-C [address] [place] [address] 674705 documented as of this encounter Results * Asymptomatic COVID-19 Virus (Coronavirus) by PCR (01/09/2021 10:44 AM CDT) COVID-19 Virus PCR to [facility] - Source Nasopharyngeal 01/09/2021 10:45 AM CDT [facility] COVID-19 Virus PCR to [facility] - Result Test received-See reflex to IDDL test SARS CoV2 (COVID-19) Virus RT-PCR 01/09/2021 6:32 PM CDT [facility] Specimen from nasopharyngeal structure (specimen) 01/09/2021 10:44 AM CDT 01/09/2021 10:45 AM CDT Saurabh Marcial MD LAB - MICRO GENERAL DONYA [place] Final Result [facility], [facility] [address] [place] [address], [facility] [address] [place] [address], [facility] [phone] documented in this encounter Visit Diagnoses Diagnosis Indication for care in labor and delivery, antepartum- Primary Unspecified indication for care or intervention related to labor and delivery, antepartum documented in this encounter Additional Health Concerns Infection Onset Date Last Indicated Resolved Time Rule Out COVID-19 05/11/2021 05/11/2021 05/13/2021 10:18 AM CDT Rule Out COVID-19 07/13/2021 07/13/2021 07/14/2021 3:04 PM CONVERTER SKIMMER Rule Out COVID-19 07/18/2021 07/18/2021 07/20/2021 1:56 PM CONVERTER SKIMMER COVID-19 07/18/2021 07/18/2021 08/08/2021 11:3 9 PM CONVERTER SKIMMER Rule Out COVID-19 12/18/2021 12/18/2021 12/19/2021 11:34 AM CDT Rule Out COVID-19 02/24/2022 02/24/2022 02/25/2022 1:08 PM CDT Rule Out COVID-19 04/26/2022 04/26/2022 04/26/2022 6:47 AM CDT Rule Out COVID-19 05/17/2022 05/17/2022 05/17/2022 10:20 PM CONVERTER SKIMMER Rule Out COVID-19 06/09/2022 06/09/2022 06/09/2022 9:35 AM CONVERTER SKIMMER COVID-19 06/09/2022 06/09/2022 06/30/2022 11:4 1 PM CONVERTER SKIMMER Rule Out COVID-19 11/10/2022 11/10/2022 11/11/2022 12:17 PM CDT Rule Out COVID-19 03/07/2023 03/07/2023 03/07/2023 1:20 PM CDT Rule Out COVID-19 12/26/2023 12/26/2023 12/26/2023 9:50 AM CDT Rule Out COVID-19 04/09/2024 04/09/2024 04/10/2024 6:48 PM CDT Assessment Noted Time PHQ-9 Depression Total Score: 6 09/30/19 21 3:25 PM CDT documented as of this encounter Care Teams Battery Container Inspector Relationship Specialty Start Date End Date Marija Edgar APRN CNP PCP - General Nurse Practitioner 04/30/20 04/14/23 Esha Grimm PA-C [address] [place] [address] PCP - General Family Medicine 05/04/23 Lita Oseguera Personal Advocate & Liaison (PAL) 02/28/20 03/27/23 Chanelle Mccann APRN CNAdam [address] [address] [facility] 200 [place] [address] Assigned OBGYN Provider 05/02/2005/09 Kyara De La Fuente, VJ Specialty Environmental Scientists Neurology 06/04/20 03/05/21 Marija Edgar APRN PASSENGER ATTENDANT Assigned PCP 06/08/20 04/29/23 Mynor Broussard MD 6363 [facility] 500 [place], [place] 8926[address] Assigned Surgical Provider 06/01/20 11/28/21 Keisha Dotson MD 909 [place], [place] 068675 Assigned Neuroscience Provider 06/04/20 04/01/23 Galo Burrell MD Assigned Heart and Vascular Provider 10/05/20 04/02/22 Cristina Wood Financial Resource Worker 02/09/21 02/09/21 Diana Desir, [facility] [address] [place], [place] [address] Pharmacist Pharmacist 04/17/21 Rain Galaviz PA-C [address] [place] [address] [address] [facility] [place] [address] Physician Clinical Trial Coordinator Dermatology 04/28/21 Summer Lara MD [address] [place] [address] Assigned OBGYN Provider 05/10/2105/23 Summer Lara MD [address] [place] [address] 670654 Assigned OBGYN Provider 05/31/21 Summer Lara MD [address] [place] [address] 401954 Assigned OBGYN Provider 05/24/2105/30 Tavia Wyatt MD [address] [place] [address] [phone] Dermatology 07/14/21 Johnny Murillo MD [address] [place], [place] 751734 Assigned Musculoskeletal Provider 08/30/21 03/17/22 Erica Farrell APRN PASSENGER ATTENDANT 6405 [facility] [address] [place] [phone] Nurse Practitioner Cardiovascular Disease 09/09/21 Teresita Bean, [facility] [address] [phone] Pharmacist Pharmacist 09/24/21 09/29/21 Tavia Wyatt MD [address] [place] [address] Assigned Surgical Provider 11/29/21 05/07/22 Diana Desir, [facility] [address] [place] [address] Assigned MTM Pharmacist 01/02/22 Rich Barrett MD [address] 242615 Physician Ophthalmology 01/21/22 Neil Kent MD 500 [place], [place] 188135 Dermatology 02/24/22 Roney Story DPM [address] [facility] [address] [place], [place] 924087 Assigned Musculoskeletal Provider 03/20/22 08/13/22 Erica Farrell APRN PASSENGER ATTENDANT 1700 [place] [address] Assigned Heart and Vascular Provider 04/03/22 04/16/22 Diana Desir, [facility] [address] [place] [address] Assigned MTM Pharmacist 04/07/22 Jelena David OD [address] [facility] [place] [address] Assigned Surgical Provider 05/08/22 10/08/22 Galo Burrell MD Assigned Heart and Vascular Provider 04/17/22 06/11/22 Livan Sharif MD [address] [place] [address] Cardiovascular Disease 05/14/22 Livan Sharif MD [address] [place] [address] Assigned Heart and Vascular Provider 06/12/22 07/23/22 Catherine Cm MD [address] [place], [place] 4158[address] Cardiovascular Disease 07/21/22 Valery Veronica, PA-C [address] [place] [address] 460755 Physician Clinical Trial Coordinator Dermatology 07/21/22 Catherine Cm MD [address] [place], [place] 383[address] Assigned Heart and Vascular Provider 07/24/22 11/05/22 Johnny Murillo MD [facility] [address] [phone] Assigned Musculoskeletal Provider 08/14/22 10/08/22 Brea Quinn APRN PASSENGER ATTENDANT [address] [place] [address] 724325 Nurse Practitioner Dermatology 09/21/22 Brea Quinn APRN PASSENGER ATTENDANT [address] [place] [address] Assigned Surgical Provider 10/09/22 05/01/24 [place] [address] [place] [address] [place] [address] Assigned Musculoskeletal Provider 10/09/22 05/01/24 Livan Sharif MD [address] [place] [address] Assigned Heart and Vascular Provider 11/06/22 11/12/22 Catherine Cm MD [address] [place] [address] Assigned Heart and Vascular Provider 11/13/22 05/27/23 JuanSydnie malik, RN Personal Advocate & Liaison (PAL) Family Medicine 03/28/23 07/31/23 Alfonso Renteria MD 5775 [facility] 200 [place] [address] Assigned Neuroscience Provider 04/02/23 Cheng Todd PA-C [address] [place] [address] Assigned PCP 04/30/23 07/15/23 Radha Lomeli APRN PASSENGER ATTENDANT [address] [place] [address] Assigned Heart and Vascular Provider 05/28/23 Jelena David OD [address] [facility] [place] [address] Ophthalmology 06/15/23 Pao Joseph, RN Personal Advocate & Liaison (PAL) Nurse 08/01/23 11/07/23 Esha Grimm PA-C [address] [place] [phone] Assigned PCP 07/16/23 Valery Veronica PA-C [address] [place] [address] 495105 Physician Clinical Trial Coordinator Dermatology 09/19/23 Rey Tay MD [address] [place] [address] 618825 MD Gastroenterology 09/20/23 Rocky Zepeda DO [address] [place] [address] 905985 Physician Gastroenterology 09/20/23 Philip Dumont MD [address] [place] [address] 615275 Physician Ophthalmology 09/22/23 Meredith Carrera PA-C [address] [place] [address] 656015 Assigned Gastroenterology Provider 11/01/23 Neil Kent MD [address] [address] Dermatology 11/02/23 [place] [address] [place] [address] Neurological Surgery 12/26/23 Audrey Waite PA-C 500 [place] [address] Physician Clinical Trial Coordinator Dermatology 02/28/24 Valery Veronica PA-C [address] [place] [address] Physician Clinical Trial Coordinator Dermatology 04/10/24 Herminia Hatch MD [address] [place] [address] [phone] Assigned Rheumatology Provider 07/02/24 documented as of this encounter
--- OUTSIDE RECORDS SUMMARY | 2024-07-22 20:47 | XMS_ITS | Encounter Summary ---
Author Organization [place] Address [address] [place] [address] Care Team Providers Care Balloon Pilot Name Role Phone Lita Oseguera Unavailable Unavailable Marija Edgar APRN LAST REPAIRER Primary Care Provider + Chanelle Mccann APRN CNM Unavailab le Kyara De La Fuente RN Unavailable [phone] Marija Edgar APRN LAST REPAIRER Unavailable [phone] Mynor Broussard MD Unavailable [phone] Keisha Dotson MD Unavailable [phone] Galo Burrell MD Unavailable Unavailable Cristina Wood Unavailable Diana Desir [facility] Unavailable Rain Galaviz PA-C Unavailable Summer Lara MD Unavailable [phone] Summer Lara MD Unavailable [phone] Summer Lara MD Unavailable [phone] Tavia Wyatt MD Unavailable Johnny Murillo MD Unavailable Erica Farrell APRN LAST REPAIRER Unavailable Vikas Teresita Watson [facility] Unavailable Tavia Wyatt MD Unavailable Diana Desir [facility] Unavailable [phone] Rich Barrett MD Unavailable Neil Kent MD Unavailable Roney Story DPM Unavailable [phone] Erica Farrell APRN LAST REPAIRER Unavailable Diana Desir [facility] Unavailable [phone] Jelena David Unavailable Galo Burrell MD Unavailable Unavailable Livan Sharif MD Unavailable Livan Sharif MD Unavailable + Catherine Cm MD Unavailable + Valery Veronica-C Unavailable [phone] Catherine Cm MD Unavailable + Johnny Murlilo MD Unavailable [phone] Brea Quinn UNIX ANALYST LAST REPAIRER Unavailable [phone] Brea Quinn UNIX ANALYST LAST REPAIRER Unavailable [phone] Jose Francisco Johnson MD Unavailable Livan Sharif MD Unavailable + Catherine Cm MD Unavailable + Sydnie Martinez RN Unavailable Unavailable Alfonso Renteria MD Unavailable [phone] Esha Grimm PA-C Primary Care Provider Cheng Todd PA-C Unavailable Radha Lomeli UNIX ANALYST LAST REPAIRER Unavailable [phone] Jelena David OD Unavailable Pao Joseph RN Unavailable Unavailable Esha Grimm PA-C Unavailable [phone] Valery Veronica PA-C Unavailable [phone] Rey Tay MD Unavailable Rocky Zepeda DO Unavailable Philip Dumont MD Unavailable [phone] Meredith Carrera PA-C Unavailable [phone] Neil Kent MD Unavailable Juan Pablo Emmanuel MD Unavailable [phone] Audrey Waite PA-C Unavailable [phone] Valery Veronica PA-C Unavailable Herminia Hatch MD Unavailable Encounter Details Date Type Department Care Team (Late st Contact Info) Description 02/06/[address] [address] [facility] Diopview Social History Tobacco [...] do you attend chur or sabianist services? More than 4 times [...] Answer Date Recorded PHQ-2 Score 3 [facility]2020 [facility] Answer Date [...] a skilled nursing (including now)? No 08/11/2020 [place] Depression Scale Answer Date Recorded [place] Depression Score 5 01/14/2021 Last EPDS Self Harm Result Not on file 01/14 Education Answer Date Recorded What is the highest level of school you have completed or the highest degree you have received? 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 CHUTE FEEDER Gender Identity Female 03/02/2021 5:45 PM CDT [...] CDT Office Visit [facility] Neurology [address], [address] [place] [address] [place] [address] [address] [place] [address] Johnny Penn MD [address] [place] [address] 11/28/2024 7:45 AM CDT Virtual Visit [facility] Gastroenterology Clinic [address] 4th [place] [address] Meredith Carrera PA-C [address] [place] [address] [phone] documented as of this encounter Visit Diagnoses Not on filedocumented in this encounter Additional Health Concerns Infection Onset Date Last Indicated Resolved Time Rule Out COVID-19 05/11/2021 05/11/2021 05/13/2021 10:18 AM CDT Rule Out COVID-19 07/13/2021 07/13/2021 07/14/2021 3:04 PM CHUTE FEEDER Rule Out COVID-19 07/18/2021 07/18/2021 07/20/2021 1:56 PM CHUTE FEEDER COVID-19 07/18/2021 07/18/2021 08/08/2021 11:3 9 PM CHUTE FEEDER Rule Out COVID-19 12/18/2021 12/18/2021 12/19/2021 11:34 AM CDT Rule Out COVID-19 02/24/2022 02/24/2022 02/25/2022 1:08 PM CDT Rule Out COVID-19 04/26/2022 04/26/2022 04/26/2022 6:47 AM CDT Rule Out COVID-19 05/17/2022 05/17/2022 05/17/2022 10:20 PM CHUTE FEEDER Rule Out COVID-19 06/09/2022 06/09/2022 06/09/2022 9:35 AM CHUTE FEEDER COVID-19 06/09/2022 06/09/2022 06/30/2022 11:4 1 PM CHUTE FEEDER Rule Out COVID-19 11/10/2022 11/10/2022 11/11/2022 12:17 PM CDT Rule Out COVID-19 03/07/2023 03/07/2023 03/07/2023 1:20 PM CDT Rule Out COVID-19 12/26/2023 12/26/2023 12/26/2023 9:50 AM CDT Rule Out COVID-19 04/09/2024 04/09/2024 04/10/2024 6:48 PM CDT Assessment Noted Time PHQ-9 Depression Total Score: 6 09/30/19 3:25 PM CDT documented as of this encounter Care Teams Balloon Pilot Relationship Specialty Start Date End Date Marija Edgar APRN LAST REPAIRER PCP - General Nurse Practitioner 04/30/20 04/14/23 Esha Grimm PA-C [address] [place] [phone] PCP - General Family Medicine 05/04/23 Lita Oseguera Personal Advocate & Liaison (PAL) 02/28/20 03/27/23 Chanelle Mccann APRN CNM [address] [facility] 200 [place] [address] Assigned OBGYN Provider 05/02/2005/09 Kyara De La Fuente, RN Specialty Senior Solutions Consultant Neurology 06/04/20 03/05/21 Marija Edgar APRN LAST REPAIRER Assigned PCP 06/08/20 04/29/23 Mynor Broussard MD 6363 [facility] 500 [place] [address] Assigned Surgical Provider 06/01/20 11/28/21 Keisha Dotson MD 909 [place] [address] Assigned Neuroscience Provider 06/04/20 04/01/23 Galo Burrell MD Assigned Heart and Vascular Provider 10/05/20 04/02/22 Cristina Wood Financial Resource Worker 02/09/21 02/09/21 [facility] [address] [place] [address] Pharmacist Pharmacist 04/17/21 Rain Galaviz PA-C [address] [place] [address] [place] [address] Physician Application Helper Dermatology 04/28/21 Summer Lara MD [address] [place] [address] [phone] Assigned OBGYN Provider 05/10/2105/23 Summer Lara MD [address] [place] [address] [phone] Assigned OBGYN Provider 05/31/21 2 Summer Lara MD [address] [place] [address] [phone] Assigned OBGYN Provider 05/24/2105/30 Tavia Wyatt MD [address] [place] [address] [phone] Dermatology 07/14/21 Johnny Murillo MD [address] [facility] [address] [place], [place] 770724 Assigned Musculoskeletal Provider 08/30/21 03/17/22 Erica Farrell APRN LAST REPAIRER 6405 [facility] [address] [place] [address] Nurse Practitioner Cardiovascular Disease 09/09/21 Teresita Bean [facility] [address] [facility] [address] [place] [phone] Pharmacist Pharmacist 09/24/21 09/29/21 Tavia Wyatt MD [address] [place], [place] 329630 Assigned Surgical Provider 11/29/21 05/07/22 [facility] 3033 [place], [place] 337806 Assigned MTM Pharmacist 01/02/22 Rich Barrett MD 516 [facility] 9A [place], [place] [address]355 Physician Ophthalmology 01/21/22 Niel Kent MD 500 [place], [place] [phone] Dermatology 02/24/22 Roney Story DPM [address] [facility] [address] [place], [place] 786087 Assigned Musculoskeletal Provider 03/20/22 08/13/22 Erica Farrell APRN LAST REPAIRER 1700 [place] [address] Assigned Heart and Vascular Provider 04/03/22 04/16/22 Diana Desir, [facility] 3033 [place] [address] Assigned MTM Pharmacist 04/07/22 Jel[place] David [place] [address] [facility] [place] [address] Assigned Surgical Provider 05/08/22 10/08/22 Galo Burrell MD Assigned Heart and Vascular Provider 04/17/22 06/11/22 Livan Sharif MD [address] [place] [address] Cardiovascular Disease 05/14/22 Livan Sharif MD [address] [place] [address] Assigned Heart and Vascular Provider 06/12/22 07/23/22 Catherine Cm MD [address] [place] [address]185 Cardiovascular Disease 07/21/22 Valery Veronica, PAUcheC 909 [place] [address] Physician Application Helper Dermatology 07/21/22 IsCatherine hobbs MD [address] [facility]00 [place] [address] Assigned Heart and Vascular Provider 07/24/22 11/05/22 Johnny Murillo MD [address] 296[address] Assigned Musculoskeletal Provider 08/14/22 10/08/22 Brea Quinn APRN LAST REPAIRER 500 [place], [place] 843935 Nurse Practitioner Dermatology 09/21/22 Brea Quinn APRN LAST REPAIRER 6401 [facility] [place] 365872 Assigned Surgical Provider 10/09/22 05/01/24 [place] [address] [phone] Assigned Musculoskeletal Provider 10/09/22 05/01/24 Livan Sharif MD [address] [facility]00 [place] 313195 Assigned Heart and Vascular Provider 11/06/22 11/12/22 Catherine Cm MD [address] [facility]00 [place] 387985 Assigned Heart and Vascular Provider 11/13/22 05/27/23 Sydnie Martinez RN Personal Advocate & Liaison (PAL) Family Medicine 03/28/23 07/31/23 Alfonso Renteria MD 5775 [facility] [address]NI 200 [place] [address] Assigned Neuroscience Provider 04/02/23 Cheng Todd PA-C [address] [place] [address] Assigned PCP 04/30/23 07/15/23 Radha Lomeli APRN LAST REPAIRER 6405 [facility] [address] [place], [place] 804295 Assigned Heart and Vascular Provider 05/28/23 Jelena David OD [address] [facility] [place] [address] Ophthalmology 06/15/23 Pao Joseph, VJ Personal Advocate & Liaison (PAL) Nurse 08/01/23 11/07/23 Esha Grimm PA-C [address] [place] [address] Assigned PCP 07/16/23 Valery Veronica PA-C [address] [place] [address] 552815 Physician Application Helper Dermatology 09/19/23 Rey Tay MD [address] [place] [address] 115935 Gastroenterology 09/20/23 Rocky Zepeda DO [address] [place] [address] 814005 Physician Gastroenterology 09/20/23 Philip Dumont MD 516 [place] [address] Physician Ophthalmology 09/22/23 Meredith Carrera PA-C 909 [place] [address] Assigned Gastroenterology Provider 11/01/23 Neil Kent MD [address] [address] Dermatology 11/02/23 [place] [address] 330937 Neurological Surgery 12/26/23 Audrey Waite PA-C [address] [place] [address] Physician Application Helper Dermatology 02/28/24 Valery Veronica PA-C [address] [place] [address] Physician Application Helper Dermatology 04/10/24 Herminia Hatch MD [facility]5 [place] [address] Assigned Rheumatology Provider 07/02/24 documented as of this encounter
--- OUTSIDE RECORDS SUMMARY | 2024-07-22 20:47 | XMS_ITS | Encounter Summary ---
Author Organization [place] Address [address] [place] [address] Care Team Providers Care Agricultural Economics Professor Name Role Phone Lita Oseguera Unavailable Unavailable Marija Edgar APRN GAS PROCESSING PLANT OPERATOR Primary Care Provider + Chanelle Mccann APRN CNM Unavailab le Kyara De La Fuente RN Unavailable [phone] Marija Edgar APRN GAS PROCESSING PLANT OPERATOR Unavailable Mynor Broussard MD Unavailable Keisha Dotson MD Unavailable [phone] Stacey Briones ADDICTION SPECIALIST Unavailable Lesley Moody CHW Unavailable [phone] Mary Mejia Unavailable Unavailable Lita Oseguera Unavailable Unavailable Galo Burrell MD Unavailable Unavailable Cristina Wood Unavailable Lesley Moody CHW Unavailable [phone] Meredith Bedoya Unavailable Unavailable Cristina Wood Unavailable Diana Desir [facility] Unavailable Rain Galaviz PA-C Unavailable [phone] Summer Lara MD Unavailable Summer Lara MD Unavailable [phone] Summer Lara MD Unavailable [phone] Tavia Wyatt MD Unavailable [phone] Johnny Murillo MD Unavailable +[phone] Erica Farrell APRN GAS PROCESSING PLANT OPERATOR Unavailable + Vikas Teresita Ka Walter H Unavailable Tavia Wyatt MD Unavailable [phone] Diana Desir [facility] Unavailable [phone] Rich Barrett MD Unavailable [phone] Neil Kent MD Unavailable Roney StoryM Unavailable [phone] Erica Farrell APRN GAS PROCESSING PLANT OPERATOR Unavailable + Diana Desir [facility] Unavailable [phone] Jelena David OD Unavailable [phone] Galo Burrell MD Unavailable Unavailable Livan Sharif MD Unavailable + Livan Sharif MD Unavailable + Catherine Cm MD Unavailable + Valery Veronica PA-C Unavailable [phone] Catherine Cm MD Unavailable + Johnny Murillo MD Unavailable +1- Brea Quinn APRN GAS PROCESSING PLANT OPERATOR Unavailable +[phone] Brea Quinn APRN GAS PROCESSING PLANT OPERATOR Unavailable [phone] Jose Francisco Johnson MD Unavailable + Livan Sharif MD Unavailable + Catherine Cm MD Unavailable + Sydnie Martinez RN Unavailable Unavailable Alfonso Renteria MD Unavailable [phone] Esha Grimm PA-C Primary Care Provider Perez Chengjc Fish PA-C Unavailable Radha Lomeli APRN GAS PROCESSING PLANT OPERATOR Unavailable Jelena David OD Unavailable Pao Joseph RN Unavailable Unavailable Esha Grimm PA-C Unavailable Valery Veronica PA-C Unavailable [phone] Rey Tay MD Unavailable Rocky Zepeda DO Unavailable Philip Dumont MD Unavailable Meredith Carrrea PA-C Unavailable Neil Kent MD Unavailable Juan Pablo Emmanuel MD Unavailable Audrey Waite PA-C Unavailable JeremíasValery damon PA-C Unavailable [phone] Herminia Hatch MD Unavailable Reason for Visit * Reason Onset Date Comments Patient/info Update 08/31/2020 appointment request Encounter Details Date Type Department Care Team (Late st Contact Info) Description 08/31/2020 [facility] [place] [address] [address] Marija Edgar APRN GAS PROCESSING PLANT OPERATOR [address] [place] [address] Patient/info Update (appointment [...] Answer Date Recorded PHQ-2 Score 0 08/12/2020 [facility] Occupat ional Health - Occupational Stress [...] PM CDT Legal Sex Female 4:13 AM CAMPUS MONITOR Gender Identity Female 03/02/2021 5:45 PM CDT Sexual Orientation Straight 02/28/2020 12 :51 AM CDT COVID-19 Exposure Response Date Recorded In the last month, have you been in contact with someone who was confirmed or suspected to have Coronavirus / COVID-19? No / Unsure 09/03/2020 12:11 PM CAMPUS MONITOR documented as of this encounter Miscellaneous Notes * Telephone Encounter - Maryjane Mccallum RN - 09/01/2020 7:21 AM CAMPUS MONITOR Patient sent message requesting office visit with [...] Office Visit with Marija Edgar APRN CNP [facility] ([facility] ) [address] [facility] [phone] Maryjane Mccallum, Registered Nurse [facility] US MONITOR documented in this encounter Plan of Treatment Upcoming Encounters Date Type Department Care Team (Late st Contact Info) Description 10/23/2024 9:30 AM CDT Office Visit [facility] Neurology [address], [address] [place] [address] [place] [address] [place] [address] [address] Johnny Penn MD 6692 [facility] [place] [address] 11/28/2024 7:45 AM CDT Virtual Visit [facility] Gastroenterology Clinic [address] 4th [place] [address] Meredith Carrera PA-C [address]09 [place] [address] documented as of this encounter Visit Diagnoses Not on filedocumented in this encounter Additional Health Concerns Infection Onset Date Last Indicated Resolved Time Rule Out COVID-19 09/24/2020 09/24/2020 09/24/2020 9:24 AM CDT Rule Out COVID-19 11/05/2020 11/05/2020 11/06/2020 1:09 PM CDT Rule Out COVID-19 05/11/2021 05/11/2021 05/13/2021 10:18 AM CDT Rule Out COVID-19 07/13/2021 07/13/2021 07/14/2021 3:04 PM CAMPUS MONITOR Rule Out COVID-19 07/18/2021 07/18/2021 07/20/2021 1:56 PM CAMPUS MONITOR COVID-19 07/18/2021 07/18/2021 08/08/2021 11:3 9 PM CAMPUS MONITOR Rule Out COVID-19 12/18/2021 12/18/2021 12/19/2021 11:34 AM CDT Rule Out COVID-19 02/24/2022 02/24/2022 02/25/2022 1:08 PM CDT Rule Out COVID-19 04/26/2022 04/26/2022 04/26/2022 6:47 AM CDT Rule Out COVID-19 05/17/2022 05/17/2022 05/17/2022 10:20 PM CAMPUS MONITOR Rule Out COVID-19 06/09/2022 06/09/2022 06/09/2022 9:35 AM CAMPUS MONITOR COVID-19 06/09/2022 06/09/2022 06/30/2022 11:4 1 PM CAMPUS MONITOR Rule Out COVID-19 11/10/2022 11/10/2022 11/11/2022 12:17 PM CDT Rule Out COVID-19 03/07/2023 03/07/2023 03/07/2023 1:20 PM CDT Rule Out COVID-19 12/26/2023 12/26/2023 12/26/2023 9:50 AM CDT Rule Out COVID-19 04/09/2024 04/09/2024 04/10/2024 6:48 PM CDT Assessment Noted Time PHQ-9 Depression Total Score: 9 06/25/20 7:04 AM CAMPUS MONITOR documented as of this encounter Care Teams Agricultural Economics Professor Relationship Specialty Start Date End Date Marija Edgar APRN GAS PROCESSING PLANT OPERATOR PCP - General Nurse Practitioner 04/30/20 04/14/23 Esah Grimm PA-C [address] [place] [phone] PCP - General Family Medicine 05/04/23 Lita Oseguera Personal Advocate & Liaison (PAL) 02/28/20 03/27/23 [place] [address] [place] [address] 200 [place] [address] Assigned OBGYN Provider 05/02/2005/09 Kyara De La Fuente, RN Specialty Plant Operations Manager Neurology 06/04/20 03/05/21 Marija Edgar APRN GAS PROCESSING PLANT OPERATOR Assigned PCP 06/08/20 04/29/23 Mynor Broussard MD 6363 [facility] 500 [place], [place] 3377[address] Assigned Surgical Provider 06/01/20 11/28/21 Keisha Dotson MD [address] [place], [place] [address]205 Assigned Neuroscience Provider 06/04/20 04/01/23 Stacey Briones, [facility] Lead Plant Operations Manager Primary Care - CC 08/11/2012/30 [...] 02/09/21 02/09/21 Diana Desir, [facility] [place], [place] [phone] Pharmacist Pharmacist 04/17/21 Rain Galaviz PA-C [address] [place] [address] [address] [place], [place] [phone] Physician Woods Superintendent Dermatology 04/28/21 Summer Lara MD [address] [place] [address] Assigned OBGYN Provider 05/10/2105/23 Summer Lara MD [address] [place] [address] Assigned OBGYN Provider 05/31/21 2 Summer Lara MD 606 [facility] [place], [place] 9[address] Assigned OBGYN Provider 05/24/2105/30 Tavia Wyatt MD 606 [facility] [place] [address] Dermatology 07/14/21 Johnny Murillo MD [address] [place] [address] Assigned Musculoskeletal Provider 08/30/21 03/17/22 Erica Farrell APRN GAS PROCESSING PLANT OPERATOR 6405 [facility] [address] [place] [address] Nurse Practitioner Cardiovascular Disease 09/09/21 Teresita Bean [facility] 1440 [facility] [place], [place] [phone] Pharmacist Pharmacist 09/24/21 09/29/21 Tavia Wyatt MD [address] [place] [address] Assigned Surgical Provider 11/29/21 05/07/22 Diana Desir, [facility] 3033 [place] [address] Assigned MTM Pharmacist 01/02/22 Rich Barrett MD [address] [address] Physician Ophthalmology 01/21/22 Neil Kent MD 500 [place] [address] Dermatology 02/24/22 Roney Story DPM [address] [facility] [address] [place] [address] Assigned Musculoskeletal Provider 03/20/22 08/13/22 Erica Farrell APRN GAS PROCESSING PLANT OPERATOR 1700 [place] [address] Assigned Heart and Vascular Provider 04/03/22 04/16/22 [facility] 3033 [place] [address] Assigned MTM Pharmacist 04/07/22 J[place]ena David OD [address] [facility] [place] [address] Assigned Surgical Provider 05/08/22 10/08/22 Galo Burrell MD Assigned Heart and Vascular Provider 04/17/22 06/11/22 Livan Sharif MD [address] [place] [address] Cardiovascular Disease 05/14/22 Livan Sharif MD [address] [place] 803605 Assigned Heart and Vascular Provider 06/12/22 07/23/22 Catherine Cm MD [address] [facility]00 [place] [address] Cardiovascular Disease 07/21/22 Valery Veronica, PAUcheC 909 [place] [address] Physician Woods Superintendent Dermatology 07/21/22 Catherine Cm MD [address] [place] [address] [place] 490175 Assigned Heart and Vascular Provider 07/24/22 11/05/22 Johnny Murillo MD [address] [place] [address] 505594 Assigned Musculoskeletal Provider 08/14/22 10/08/22 Brea Quinn APRN GAS PROCESSING PLANT OPERATOR [address] [place] [address] 594345 Nurse Practitioner Dermatology 09/21/22 Brea Quinn APRN GAS PROCESSING PLANT OPERATOR [address] [place] [address] [place] [address] Assigned Surgical Provider 10/09/22 05/01/24 [place] [address] [place] [address] [place] [address] 586317 Assigned Musculoskeletal Provider 10/09/22 05/01/24 Livan Sharif MD [address] [place] [address] [place] 713205 Assigned Heart and Vascular Provider 11/06/22 11/12/22 Catherine Cm MD [address] [place] [address] Assigned Heart and Vascular Provider 11/13/22 05/27/23 Sydnie Martinez RN Personal Advocate & Liaison (PAL) Family Medicine 03/28/23 07/31/23 Alfonso Renteria MD 5775 [facility] 200 [place], [place] 534806 Assigned Neuroscience Provider 04/02/23 Cheng Todd PA-C [address] [place] [address] [phone] Assigned PCP 04/30/23 07/15/23 Radha Lomeli APRN GAS PROCESSING PLANT OPERATOR [address] [place], [place] 37[address]55 Assigned Heart and Vascular Provider 05/28/23 Jelena David OD [address] [facility] [place] [address] Ophthalmology 06/15/23 Pao Joseph, VJ Personal Advocate & Liaison (PAL) Nurse 08/01/23 11/07/23 Esha Grimm PA-C [address] [place] [address] Assigned PCP 07/16/23 Valery Veronica PA-C [address] [place] [address] Physician Woods Superintendent Dermatology 09/19/23 Rey Tay MD [address] [place], [place] [address] MD Gastroenterology 09/20/23 Rocky Zepeda DO 500 [place] [address] Physician Gastroenterology 09/20/23 Philip Dumont MD 516 [place], [place] 376795 Physician Ophthalmology 09/22/23 Meredith Carrera PA-C 9 [place] [address] Assigned Gastroenterology Provider 11/01/23 Neil Kent MD [address] [place] [address] 686450 Dermatology 11/02/23 [place] [address] [place] [facility] [place] [address] Neurological Surgery 12/26/23 Audrey Waite PA-C 500 [place] [address] Physician Woods Superintendent Dermatology 02/28/24 Valery Veronica PA-C [address] [place] [address] Physician Woods Superintendent Dermatology 04/10/24 Herminia Hatch MD [address] [place] [address] Assigned Rheumatology Provider 07/02/24 documented as of this encounter
--- OUTSIDE RECORDS SUMMARY | 2024-07-22 20:47 | XMS_ITS | Encounter Summary ---
Author Organization [place] Address [address] [place] [address] Care Team Providers Care Marine Radio Installer And Servicer Name Role Phone Lita Oseguera Unavailable Unavailable Marija Edgar APRN PROPERTY UNDERWRITER Primary Care Provider + Chanelle Mccann APRN CNM Unavailab le Kyara De La Fuente RN Unavailable [phone] Marija Edgar APRN PROPERTY UNDERWRITER Unavailable Mynor Broussard MD Unavailable Keisha Dotson MD Unavailable Galo Burrell MD Unavailable Unavailable Cristina Wood Unavailable Diana Desir [facility] Unavailable Rain Galaviz PA-C Unavailable Summer Lara MD Unavailable [phone] Summer Lara MD Unavailable [phone] Summer Lara MD Unavailable [phone] Tavia Wyatt MD Unavailable Johnny Murillo MD Unavailable Erica Farrell APRN PROPERTY UNDERWRITER Unavailable Vikas Teresita Watson [facility] Unavailable Tavia Wyatt MD Unavailable Diana Desir [facility] Unavailable [phone] Rich Barrett MD Unavailable Neil Kent MD Unavailable Roney Story DPM Unavailable [phone] Erica Farrell APRN PROPERTY UNDERWRITER Unavailable Diana Desir [facility] Unavailable [phone] Jelena David Unavailable Galo Burrell MD Unavailable Unavailable Livan Sharif MD Unavailable Livan Sharif MD Unavailable + Catherine Cm MD Unavailable + Valery Veronica-C Unavailable [phone] Catherine Cm MD Unavailable + Johnny Murillo MD Unavailable [phone] Brea Quinn OUTCOMES ANALYST PROPERTY UNDERWRITER Unavailable [phone] Brea Quinn OUTCOMES ANALYST PROPERTY UNDERWRITER Unavailable [phone] Jose Francisco Johnson MD Unavailable Livan Sharif MD Unavailable + Catherine Cm MD Unavailable + Sydnie Martinez RN Unavailable Unavailable Alfonso Renetria MD Unavailable [phone] Esha Grimm PA-C Primary Care Provider Cheng Todd PA-C Unavailable Radha Lomeli OUTCOMES ANALYST PROPERTY UNDERWRITER Unavailable [phone] Jelena David OD Unavailable Pao Joseph RN Unavailable Unavailable Esha Grimm PA-C Unavailable [phone] Valery Veronica PA-C Unavailable [phone] Rey Tay MD Unavailable Rocky Zepeda DO Unavailable Philip Dumont MD Unavailable [phone] Meredith Carrera PA-C Unavailable [phone] Neil Kent MD Unavailable Juan Pablo Emmanuel MD Unavailable [phone] Audrey Waite PA-C Unavailable [phone] Valery Veronica PA-C Unavailable Herminia Hatch MD Unavailable Encounter Details Date Type Department Care Team (Late st Contact Info) Description 01/02/2021 MyC Medical Advice [address] [address] Kierra Eller Social History Tobacco [...] you attend [facility] or confucianism services? More than 4 times per year [...] Answer Date Recorded PHQ-2 Score 3 [facility] [...] CDT Legal Sex Female 4:13 AM GENERAL PURCHASING AGENT Gender Identity Female 03/02/2021 5:45 PM [...] AM CDT Office Visit [facility] Neurology [address], [address] [place] [address] [place] [address] [address] [place] [id number] Johnny Penn MD [address] [place] [address] 11/28/2024 7:45 AM CDT Virtual Visit [facility] G[facility] [address] 4th [place] [phone] Meredith Carrera PA-C [address] [place] [address] 969165 documented as of this encounter Visit Diagnoses Not on filedocumented in this encounter Additional Health Concerns Infection Onset Date Last Indicated Resolved Time Rule Out COVID-19 05/11/2021 05/11/2021 05/13/2021 10:18 AM CDT Rule Out COVID-19 07/13/2021 07/13/2021 07/14/2021 3:04 PM GENERAL PURCHASING AGENT Rule Out COVID-19 07/18/2021 07/18/2021 07/20/2021 1:56 PM GENERAL PURCHASING AGENT COVID-19 07/18/2021 07/18/2021 08/08/2021 11:3 9 PM GENERAL PURCHASING AGENT Rule Out COVID-19 12/18/2021 12/18/2021 12/19/2021 11:34 AM CDT Rule Out COVID-19 02/24/2022 02/24/2022 02/25/2022 1:08 PM CDT Rule Out COVID-19 04/26/2022 04/26/2022 04/26/2022 6:47 AM CDT Rule Out COVID-19 05/17/2022 05/17/2022 05/17/2022 10:20 PM GENERAL PURCHASING AGENT Rule Out COVID-19 06/09/2022 06/09/2022 06/09/2022 9:35 AM GENERAL PURCHASING AGENT COVID-19 06/09/2022 06/09/2022 06/30/2022 11:4 1 PM GENERAL PURCHASING AGENT Rule Out COVID-19 11/10/2022 11/10/2022 11/11/2022 12:17 PM CDT Rule Out COVID-19 03/07/2023 03/07/2023 03/07/2023 1:20 PM CDT Rule Out COVID-19 12/26/2023 12/26/2023 12/26/2023 9:50 AM CDT Rule Out COVID-19 04/09/2024 04/09/2024 04/10/2024 6:48 PM CDT Assessment Noted Time PHQ-9 Depression Total Score: 6 09/30/19 3:25 PM CDT documented as of this encounter Care Teams Marine Radio Installer And Servicer Relationship Specialty Start Date End Date Marija Edgar APRN PROPERTY UNDERWRITER PCP - General Nurse Practitioner 04/30/20 04/14/23 Esha Grimm PA-C [address] [place] [phone] PCP - General Family Medicine 05/04/23 Lita Oseguera Personal Advocate & Liaison (PAL) 02/28/20 03/27/23 Chanelle Mccann APRN CNAdam [address] 34[facility] 200 [place] [address] Assigned OBGYN Provider 05/02/2005/09 Kyara De La Fuente, VJ Specialty Bricklayer Neurology 06/04/20 03/05/21 Marija Edgar APRN PROPERTY UNDERWRITER Assigned PCP 06/08/20 04/29/23 Mynor Broussard MD 6363 [facility] 500 [place] [address] Assigned Surgical Provider 06/01/20 11/28/21 Keisha Dotson MD 909 [place] [address] Assigned Neuroscience Provider 06/04/20 04/01/23 Galo Burrell MD Assigned Heart and Vascular Provider 10/05/20 04/02/22 Cristina Wood Financial Resource Worker 02/09/21 02/09/21 Diana Desir, [facility] 3033 [place] [address] Pharmacist Pharmacist 04/17/21 Rain Galaviz PA-C [address] [place] [address] [address] [place], [place] [phone] Physician Fundraising Specialist Dermatology 04/28/21 Summer Lara MD [address] [place] [address] 743994 Assigned OBGYN Provider 05/10/2105/23 Summer Lara MD [address] [place] [address] [phone] Assigned OBGYN Provider 05/31/21 2 Summer Lara MD [address] [place] [address] Assigned OBGYN Provider 05/24/2105/30 Tavia Wyatt MD [address] [place] [address] Dermatology 07/14/21 Johnny Murillo MD [address] [place] [address] Assigned Musculoskeletal Provider 08/30/21 03/17/22 Erica Farrell APRN PROPERTY UNDERWRITER 6[address] [facility] [address] [place] [address] Nurse Practitioner Cardiovascular Disease 09/09/21 Teresita Bean, [facility] [address] [place] [address] Pharmacist Pharmacist 09/24/21 09/29/21 Tavia Wyatt MD [address] [place] [address] Assigned Surgical Provider 11/29/21 05/07/22 [facility] 3033 [place] [address] Assigned MTM Pharmacist 01/02/22 Rich Barrett MD 516 [facility] 9A [place], [place] [phone] Physician Ophthalmology 01/21/22 Neil Kent MD 500 [place], [place] 171435 Dermatology 02/24/22 Roney Story DPM [address] [facility] [address] [place] [address] Assigned Musculoskeletal Provider 03/20/22 08/13/22 Erica Farrell APRN PROPERTY UNDERWRITER [address] [place] [address] Assigned Heart and Vascular Provider 04/03/22 04/16/22 Diana Desir, [facility] 30[address] [place] [address] Assigned MTM Pharmacist 04/07/22 Jelena David OD [address] [facility] [place] [address] Assigned Surgical Provider 05/08/22 10/08/22 Galo Burrell MD Assigned Heart and Vascular Provider 04/17/22 06/11/22 Livan Sharif MD [address], [address] [place] [address] Cardiovascular Disease 05/14/22 Livan Sharif MD [address] [place] [address] Assigned Heart and Vascular Provider 06/12/22 07/23/22 Catherine Cm MD [address] [place] [address] Cardiovascular Disease 07/21/22 Valery Veronica PA-C 909 [place], [place] 391825 Physician Fundraising Specialist Dermatology 07/21/22 Catherine Cm MD [address] [place] 822265 Assigned Heart and Vascular Provider 07/24/22 11/05/22 Johnny Murillo MD [facility] [address] [place] [address] Assigned Musculoskeletal Provider 08/14/22 10/08/22 Brea Quinn APRN PROPERTY UNDERWRITER 500 [place] [address] Nurse Practitioner Dermatology 09/21/22 Brea Quinn APRN PROPERTY UNDERWRITER [facility]1 [place] [address] Assigned Surgical Provider 10/09/22 05/01/24 [place] [address] [facility] 300 [place] [address] Assigned Musculoskeletal Provider 10/09/22 05/01/24 Livan Sharif MD [address] , [facility] [address] [place] [address] Assigned Heart and Vascular Provider 11/06/22 11/12/22 Catherine Cm MD 6405 [facility] [address] [place] [address] Assigned Heart and Vascular Provider 11/13/22 05/27/23 Sydnie Martinez RN Personal Advocate & Liaison (PAL) Family Medicine 03/28/23 07/31/23 Alfonso Renteria MD 5775 [facility] 200 [place] [address] Assigned Neuroscience Provider 04/02/23 Cheng Todd PA-C [address] [place] [address] Assigned PCP 04/30/23 07/15/23 Radha Lomeli APRN PROPERTY UNDERWRITER 6405 [facility] [address] [place] [address] Assigned Heart and Vascular Provider 05/28/23 Jelena David OD [address] [facility] [place] [address] MD Ophthalmology 06/15/23 Pao Joseph, VJ Personal Advocate & Liaison (PAL) Nurse 08/01/23 11/07/23 Esha Grimm PA-C [address] [place] [address]822983 Assigned PCP 07/16/23 Valery Veronica PA-C [address] [place] [address] 559895 Physician Fundraising Specialist Dermatology 09/19/23 Rey Tay MD [address] [place] [address] [phone] Gastroenterology 09/20/23 Rocky Zepeda DO [address] [place] [address] 201695 Physician Gastroenterology 09/20/23 Philip Dumont MD [address] [place] [address] 177125 Physician Ophthalmology 09/22/23 Meredith Carrera PA-C 909 [place] [address] Assigned Gastroenterology Provider 11/01/23 Neil Kent MD [address] 507900 Dermatology 11/02/23 [place] [address] [phone] Neurological Surgery 12/26/23 Audrey Waite PA-C [address] [place] [address] Physician Fundraising Specialist Dermatology 02/28/24 Valery Veronica PA-C 494473 [address], [place] [address] Physician Fundraising Specialist Dermatology 04/10/24 Herminia Hatch MD [facility]5 [place], [place] 51035125 Assigned Rheumatology Provider 07/02/24 documented as of this encounter
--- OUTSIDE RECORDS SUMMARY | 2024-07-22 20:47 | XMS_ITS | Encounter Summary ---
Author Organization [place] Address [address] [place] [address] Care Team Providers Care Printing Plate Setter Name Role Phone Lita Oseguera Unavailable Unavailable Marija Edgar APRN NAIL MACHINE OPERATOR Primary Care Provider + Chanelle Mccann APRN CNM Unavailab le Kyara De La Fuente RN Unavailable [phone] Marija Edgar APRN NAIL MACHINE OPERATOR Unavailable [phone] Mynor Broussard MD Unavailable [phone] Keisha Dotson MD Unavailable Stacey Briones [place] [facility] Unavailable [phone] Lesley Moody CHW Unavailable [phone] Mary Mejia Unavailable Unavailable Lita Oseguera Unavailable Unavailable Galo Burrell MD Unavailable Unavailable Cristina Wood Unavailable Lesley Moody CHW Unavailable Meredith Bedoya Unavailable Unavailable Cristina Wood Unavailable Diana Desir [facility] Unavailable Rain Galaviz PA-C Unavailable Summer Lara MD Unavailable [phone] Summer Lara MD Unavailable [phone] Summer Lara MD Unavailable [phone] Tavia Wyatt MD Unavailable [phone] Johnny Murillo MD Unavailable +[phone] Erica Farrell APRN NAIL MACHINE OPERATOR Unavailable + Vikas Teresita Ka Walter H Unavailable Tavia Wyatt MD Unavailable [phone] Diana Desir [facility] Unavailable [phone] Rich Barrett MD Unavailable [phone] Neil Kent MD Unavailable Roney StoryM Unavailable [phone] Erica Farrell APRN NAIL MACHINE OPERATOR Unavailable + Diana Desir [facility] Unavailable [phone] Jelena David OD Unavailable [phone] Galo Burrell MD Unavailable Unavailable Livan Sharif MD Unavailable + Livan Sharif MD Unavailable + Catherine Cm MD Unavailable + Valery Veronica PA-C Unavailable [phone] Catherine Cm MD Unavailable + Johnny Murillo MD Unavailable +1- Brea Quinn APRN NAIL MACHINE OPERATOR Unavailable +[phone] Brea Quinn APRN NAIL MACHINE OPERATOR Unavailable [phone] Jose Francisco [place] MD Unavailable + Livan Sharif MD Unavailable + Catherine Cm MD Unavailable + Sydnie Martinez RN Unavailable Unavailable Alfonso Renteria MD Unavailable [phone] Esha Grimm PA-C Primary Care Provider Perez Chengjc Fish PA-C Unavailable Radha Lomeli APRN NAIL MACHINE OPERATOR Unavailable Jelena David OD Unavailable [phone] Pao Joseph RN Unavailable Unavailable Esha Grimm PA-C Unavailable [phone] Valery Veronica PA-C Unavailable Rey Tay [...] Contact Info) Description 09/08/2020 MyC Medical Advice [address] [address] Marija Edgar APRN NAIL MACHINE OPERATOR [address] [place] [address] MyChart Communication Social [...] Answer Date Recorded PHQ-2 Score 0 08/12/2020 [place] [facility] - Occupational Stress [...] PM CDT Legal Sex Female 4:13 AM DRAMATIC COACH Gender Identity Female 03/02/2021 5:45 PM CDT Sexual Orientation Straight 02/28/2020 12 :51 AM CDT COVID-19 Exposure Response Date Recorded In the last month, have you been in contact with someone who was confirmed or suspected to have Coronavirus / COVID-19? No / Unsure 09/09/2020 10:09 AM DRAMATIC COACH documented as of this encounter Miscellaneous [...] RN, BSN Message handled by CLINIC NURSE.' ATIC COACH * Telephone Encounter - Ever Cardozo MA - 09/09/2020 7:08 AM CST Triage, could you please see if results are posted yet in regards to patients ultrasound. Ever Cardozo BUGGYMAN ([facility]) ATIC COACH documented in this encounter Plan of Treatment Upcoming Encounters Date Type Department Care Team (Late st Contact Info) Description 10/23/2024 9:30 AM CDT Office Visit [facility] Neurology Clinics [address], [address] [place] [address] [place] [address] [place] [address] Johnny Penn MD 7365 [facility] [place] [address] 11/28/2024 7:45 AM CDT Virtual Visit [facility] Gastroenterology Clinic [address] 4th [place] [phone] Meredith Carrera PA-C [address] [place] [address] documented as of this encounter Visit Diagnoses Not on filedocumented in this encounter Additional Health Concerns Infection Onset Date Last Indicated Resolved Time Rule Out COVID-19 09/24/2020 09/24/2020 09/24/2020 9:24 AM CDT Rule Out COVID-19 11/05/2020 11/05/2020 11/06/2020 1:09 PM CDT Rule Out COVID-19 05/11/2021 05/11/2021 05/13/2021 10:18 AM CDT Rule Out COVID-19 07/13/2021 07/13/2021 07/14/2021 3:04 PM DRAMATIC COACH Rule Out COVID-19 07/18/2021 07/18/2021 07/20/2021 1:56 PM DRAMATIC COACH COVID-19 07/18/2021 07/18/2021 08/08/2021 11:3 9 PM DRAMATIC COACH Rule Out COVID-19 12/18/2021 12/18/2021 12/19/2021 11:34 AM CDT Rule Out COVID-19 02/24/2022 02/24/2022 02/25/2022 1:08 PM CDT Rule Out COVID-19 04/26/2022 04/26/2022 04/26/2022 6:47 AM CDT Rule Out COVID-19 05/17/2022 05/17/2022 05/17/2022 10:20 PM DRAMATIC COACH Rule Out COVID-19 06/09/2022 06/09/2022 06/09/2022 9:35 AM DRAMATIC COACH COVID-19 06/09/2022 06/09/2022 06/30/2022 11:4 1 PM DRAMATIC COACH Rule Out COVID-19 11/10/2022 11/10/2022 11/11/2022 12:17 PM CDT Rule Out COVID-19 03/07/2023 03/07/2023 03/07/2023 1:20 PM CDT Rule Out COVID-19 12/26/2023 12/26/2023 12/26/2023 9:50 AM CDT Rule Out COVID-19 04/09/2024 04/09/2024 04/10/2024 6:48 PM CDT Assessment Noted Time PHQ-9 Depression Total Score: 9 06/25/20 20 7:04 AM DRAMATIC COACH documented as of this encounter Care Teams Printing Plate Setter Relationship Specialty Start Date End Date Marija Edgar APRN NAIL MACHINE OPERATOR PCP - General Nurse Practitioner 04/30/20 04/14/23 Esha Grimm PA-C [address] [place] [phone] PCP - General Family Medicine 05/04/23 Lita Oseguera Personal Advocate & Liaison (PAL) 02/28/20 03/27/23 Chanelle Mccann APRN CNM [address] [facility] 200 [place], [place] 281907 Assigned OBGYN Provider 05/02/2005/09 Kyara De La Fuente, RN Specialty Maternal Child Nurse Neurology 06/04/20 03/05/21 Marija Edgar APRN NAIL MACHINE OPERATOR Assigned PCP 06/08/20 04/29/23 Mynor Broussard MD 6363 [facility] 500 [place] [address] Assigned Surgical Provider 06/01/20 11/28/21 Keisha Dotson MD 9 [place] [address] Assigned Neuroscience Provider 06/04/20 04/01/23 Stacey Briones, [facility] Lead Maternal Child Nurse Primary Care - CC 08/11/2012/30 Lesley Moody, [facility] Community Health Worker 08/11/2010/01 Mary Mejia Financial Resource Worker 09/02/20 10/06/20 Lita Oseguera Personal Advocate & Liaison (PAL) Family Medicine 09/10/20 09/21/20 Galo Burrell MD Assigned Heart and Vascular Provider 10/05/20 04/02/22 Cristina Wood Financial Resource Worker 10/07/20 10/14/20 Lesley Moody, [facility] Community Health Worker 10/23/2012/30 Meredith Bedoya Financial Resource Worker 10/23/20 11/23/20 Cristina Wood Financial Resource Worker 02/09/21 02/09/21 Diana Desir, [facility] 3033 [place] [address] Pharmacist Pharmacist 04/17/21 Rain Galaviz PA-C [address] [place] [address] [place] [address] Physician Captain Room Service Dermatology 04/28/21 Summer Lara MD [address] [place] [address] Assigned OBGYN Provider 05/10/2105/23 Summer Lara MD [address] [address] Assigned OBGYN Provider 05/31/21 2 Summer Lara MD [address] [address] Assigned OBGYN Provider 05/24/2105/30 Tavia Wyatt MD [address] [address] Dermatology 07/14/21 Johnny Murillo MD [address] [place] [address] Assigned Musculoskeletal Provider 08/30/21 03/17/22 Erica Farrell APRN NAIL MACHINE OPERATOR 6[address] [facility] [address] [place] [address] Nurse Practitioner Cardiovascular Disease 09/09/21 Teresita Bean, [facility] [address] [place] [phone] Pharmacist Pharmacist 09/24/21 09/29/21 Tavia Wyatt MD [address] [place], [place] 775570 Assigned Surgical Provider 11/29/21 05/07/22 Diana Desir, [facility] [address] [place] [address] Assigned MTM Pharmacist 01/02/22 Rich Barrett MD 516 [facility] 9A [place], [place] 740395 Physician Ophthalmology 01/21/22 Neil Kent MD 500 [place] [address] Dermatology 02/24/22 Roney Story DPM [address] [employer] [facility] [address] [place], [place] 592867 Assigned Musculoskeletal Provider 03/20/22 08/13/22 Erica Farrell APRN NAIL MACHINE OPERATOR 1700 [place] [address] Assigned Heart and Vascular Provider 04/03/22 04/16/22 Diana Desir, [facility] [address] [place] [address] Assigned MTM Pharmacist 04/07/22 Jelena David OD [address] [facility] [place] [address] Assigned Surgical Provider 05/08/22 10/08/22 Galo Burrell MD Assigned Heart and Vascular Provider 04/17/22 06/11/22 Livan Sharif MD [address] [place] 043135 Cardiovascular Disease 05/14/22 Livan Sharif MD [address] [place] 959925 Assigned Heart and Vascular Provider 06/12/22 07/23/22 Catherine Cm MD [address] [address] Cardiovascular Disease 07/21/22 Valery Veronica, PA-C [address] [place] [address] Physician Captain Room Service Dermatology 07/21/22 Catherine Cm MD [address] [address] Assigned Heart and Vascular Provider 07/24/22 11/05/22 Johnny Murillo MD [address] [place] [address] Assigned Musculoskeletal Provider 08/14/22 10/08/22 Brea Quinn APRN NAIL MACHINE OPERATOR [address] [place] [address] 934655 Nurse Practitioner Dermatology 09/21/22 Brea Quinn APRN NAIL MACHINE OPERATOR [address] [place] [address] Assigned Surgical Provider 10/09/22 05/01/24 [place] [address] [address] Assigned Musculoskeletal Provider 10/09/22 05/01/24 Livan Sharif MD [address], [facility] [address] [place] [address] Assigned Heart and Vascular Provider 11/06/22 11/12/22 Catherine Cm MD [address] [place] 472145 Assigned Heart and Vascular Provider 11/13/22 05/27/23 Sydnie Martinez, RN Personal Advocate & Liaison (PAL) Family Medicine 03/28/23 07/31/23 Alfonso Renteria MD 5775 [facility] 200 [place] [address] Assigned Neuroscience Provider 04/02/23 Cheng Todd PA-C [address] [place] [address] Assigned PCP 04/30/23 07/15/23 Radha Lomeli APRN NAIL MACHINE OPERATOR [address] [place] [address] Assigned Heart and Vascular Provider 05/28/23 Jelena David OD [facility] [facility] [place] [address] Ophthalmology 06/15/23 Pao Joseph, VJ Personal Advocate & Liaison (PAL) Nurse 08/01/23 11/07/23 Esha Grimm PA-C [address] [place] [address]83 Assigned PCP 07/16/23 Valery Veronica PA-C 909 [place] [address] Physician Captain Room Service Dermatology 09/19/23 Rey Tay MD [address] [place] [address] MD Gastroenterology 09/20/23 Rocky Zepeda DO 500 [place] [address] Physician Gastroenterology 09/20/23 Philip Dumont MD [address] [place] [address] Physician Ophthalmology 09/22/23 Meredith Carrera PA-C [address] [place] [address] Assigned Gastroenterology Provider 11/01/23 Neil Kent MD [address] [address] Dermatology 11/02/23 [place] [address] [address] Neurological Surgery 12/26/23 Audrey Waite PA-C 500 [place] [address] Physician Captain Room Service Dermatology 02/28/24 Valery Veronica PA-C [address]649 [address] [place] [address] Physician Captain Room Service Dermatology 04/10/24 Herminia Hatch MD [address] [place] [address] Assigned Rheumatology Provider 07/02/24 documented as of this encounter
--- OUTSIDE RECORDS SUMMARY | 2024-07-22 20:47 | XMS_ITS | Encounter Summary ---
Author Organization [employer] Address [address] [place] [address] Care Team Providers Care Bronze Chaser Name Role Phone Lita Oseguera Unavailable Unavailable Marija Edgar OVEN HEATER MAKEUP ARTISTRY INSTRUCTOR Primary Care Provider + Chanelle Mccann OVEN HEATER CNM Unavailab le Kyara De La Fuente RN Unavailable [phone] Marija Edgar APRN MAKEUP ARTISTRY INSTRUCTOR Unavailable [phone] Mynor Broussard MD Unavailable [phone] Keisha Dotson MD Unavailable Stacey Briones KNUCKLE STRAP SEWER Unavailable [phone] Galo Burrell MD Unavailable Unavailable Lesley Moody CHW Unavailable Meredith Bedoya Unavailable Unavailable Cristina Wood Unavailable Diana Desir [facility] Unavailable [phone] Rain Galaviz PA-C Unavailable [phone] Summer Lara MD Unavailable [phone] Summer Lara MD Unavailable [phone] Summer Lara MD Unavailable [phone] Tavia Wyatt MD Unavailable [phone] Johnny Murillo MD Unavailable +1- Erica Farrell OVEN HEATER MAKEUP ARTISTRY INSTRUCTOR Unavailable Vikas Teresita Watson [facility] Unavailable Tavia Wyatt MD Unavailable [phone] Diana Desir [facility] Unavailable [phone] Rich Barrett MD Unavailable Neil Kent MD Unavailable Roney Story DPM Unavailable [phone] Erica Farrell OVEN HEATER MAKEUP ARTISTRY INSTRUCTOR Unavailable Diana Desir [facility] Unavailable [phone] Jelena David Unavailable Galo Burrell MD Unavailable Unavailable Livan Sharif MD Unavailable + Livan Sharif MD Unavailable + Catherine Cm MD Unavailable + Valery Veronica PA-C Unavailable [phone] Catherine Cm MD Unavailable + Johnny Murillo MD Unavailable +1- Brea Quinn OVEN HEATER MAKEUP ARTISTRY INSTRUCTOR Unavailable [phone] Brea Quinn OVEN HEATER MAKEUP ARTISTRY INSTRUCTOR Unavailable [phone] Jose Francisco Johnson MD Unavailable Livan Sharif MD Unavailable + Catherine Cm MD Unavailable + Sydnie Martinez RN Unavailable Unavailable Alfonso Renteria MD Unavailable [phone] Alfa, Esha M PA-C Primary Care Provider Cheng Todd PA-C Unavailable [phone] Radha Lomeli APRN MAKEUP ARTISTRY INSTRUCTOR Unavailable Jelena David OD Unavailable Pao Joseph RN Unavailable Unavailable Esha Grimm PA-C Unavailable [phone] Valery Veronica PA-C Unavailable Rey Tay MD Unavailable Rocky Zepeda DO Unavailable Philip Dumont MD Unavailable Meredith Carrera PA-C Unavailable Neil Kent MD Unavailable Juan Pablo Emmanuel MD Unavailable Audrey Waite PA-C Unavailable JeremísaValery damon PA-C Unavailable Herminia Hatch MD Unavailable Encounter Details Date Type Department Care Team (Late st Contact Info) Description 10/24/2020 MyC Medical Advice [address] [address] Marija Edgar APRN MAKEUP ARTISTRY INSTRUCTOR [address] [place] [address] Social History Tobacco Use Types [...] do you attend chur or pentecostal services? More than 4 times [...] Answer Date Recorded PHQ-2 Score 3 09/29/2020 [facility] [...] CDT Legal Sex Female 4:13 AM SUPERVISOR ELECTRONICS PROCESSING Gender Identity Female 03/02/2021 5:45 PM CDT [...] 11:44 AM CDT Replied to patient via [employer]. Anthony Doe PA-C on 10/27/2020 at 11:54 AM documented in this encounter Plan of Treatment Upcoming Encounters Date Type Department Care Team (Late st Contact Info) Description 10/23/2024 9:30 AM CDT Office Visit [facility] Neu[facility] [address] [place] [address], [address] [place] [phone] [place] [address] [place] [address] Johnny Penn MD 2887 [place] [address] 11/28/2024 7:45 AM CDT Virtual Visit [facility] Gastroenterology Clinic [address] 4th [place] [address] Meredith Carrera PA-C [address] [place] [address] [phone] documented as of this encounter Visit Diagnoses Not on filedocumented in this encounter Additional Health Concerns Infection Onset Date Last Indicated Resolved Time Rule Out COVID-19 11/05/2020 11/05/2020 11/06/2020 1:09 PM CDT Rule Out COVID-19 05/11/2021 05/11/2021 05/13/2021 10:18 AM CDT Rule Out COVID-19 07/13/2021 07/13/2021 07/14/2021 3:04 PM SUPERVISOR ELECTRONICS PROCESSING Rule Out COVID-19 07/18/2021 07/18/2021 07/20/2021 1:56 PM SUPERVISOR ELECTRONICS PROCESSING COVID-19 07/18/2021 07/18/2021 08/08/2021 11:3 9 PM SUPERVISOR ELECTRONICS PROCESSING Rule Out COVID-19 12/18/2021 12/18/2021 12/19/2021 11:34 AM CDT Rule Out COVID-19 02/24/2022 02/24/2022 02/25/2022 1:08 PM CDT Rule Out COVID-19 04/26/2022 04/26/2022 04/26/2022 6:47 AM CDT Rule Out COVID-19 05/17/2022 05/17/2022 05/17/2022 10:20 PM SUPERVISOR ELECTRONICS PROCESSING Rule Out COVID-19 06/09/2022 06/09/2022 06/09/2022 9:35 AM SUPERVISOR ELECTRONICS PROCESSING COVID-19 06/09/2022 06/09/2022 06/30/2022 11:4 1 PM SUPERVISOR ELECTRONICS PROCESSING Rule Out COVID-19 11/10/2022 11/10/2022 11/11/2022 12:17 PM CDT Rule Out COVID-19 03/07/2023 03/07/2023 03/07/2023 1:20 PM CDT Rule Out COVID-19 12/26/2023 12/26/2023 12/26/2023 9:50 AM CDT Rule Out COVID-19 04/09/2024 04/09/2024 04/10/2024 6:48 PM CDT Assessment Noted Time PHQ-9 Depression Total Score: 6 09/30/19 21 3:25 PM CDT documented as of this encounter Care Teams Bronze Chaser Relationship Specialty Start Date End Date Marija Edgar APRN MAKEUP ARTISTRY INSTRUCTOR PCP - General Nurse Practitioner 04/30/20 04/14/23 Esha Grimm PA-C [address] [place] [phone] PCP - General Family Medicine 05/04/23 Lita Oseguera Personal Advocate & Liaison (PAL) 02/28/20 03/27/23 Chanelle Mccann APRN CNM [address] [place], [facility] [address] [place] [address] Assigned OBGYN Provider 05/02/2005/09 Kyara De La Fuente, RN Specialty Career And Guidance Counselor Neurology 06/04/20 03/05/21 Marija Edgar APRN CNP Assigned PCP 06/08/20 04/29/23 Mynor Broussard MD 6[address] [facility] 500 [place], [place] 388815 Assigned Surgical Provider 06/01/20 11/28/21 Keisha Dotson MD 909 [place], [place] 563815 Assigned Neuroscience Provider 06/04/20 04/01/23 Stacey Briones, [facility] Lead Career And Guidance Counselor Primary Care - CC 08/11/2012/30 Galo Burrell MD Assigned Heart and Vascular Provider 10/05/20 04/02/22 Leslye Moody, [facility] Community Health Worker 10/23/2012/30 Meredith Bedoya Financial Resource Worker 10/23/20 11/23/20 Cristina Wood Financial Resource Worker 02/09/21 02/09/21 Diana Desir, [facility] 3033 [place] [address] Pharmacist Pharmacist 04/17/21 Rain Galaviz PA-C [address] [facility] [place] [address] Physician Machine Stonecutter Dermatology 04/28/21 Summer Lara MD [address] [facility] [place] [address] Assigned OBGYN Provider 05/10/2105/23 Summer Lara MD [address] [facility] [place] [address] Assigned OBGYN Provider 05/31/21 Summer Lara MD [address] [facility] [place] [address] Assigned OBGYN Provider 05/24/2105/30 Tavia Wyatt MD [address] [facility] [place] [address] Dermatology 07/14/21 Johnny Murillo MD [address] [place] [address] Assigned Musculoskeletal Provider 08/30/21 03/17/22 Erica Farrell APRN MAKEUP ARTISTRY INSTRUCTOR [address] [facility] [address] [place] [address] Nurse Practitioner Cardiovascular Disease 09/09/21 Teresita Bean, [facility] [address] [place] [address] Pharmacist Pharmacist 09/24/21 09/29/21 Tavia Wyatt MD [address] [place] [address] Assigned Surgical Provider 11/29/21 05/07/22 Diana Desir, [facility] [address] [place] [address] Assigned MTM Pharmacist 01/02/22 Rich Barrett MD [address] [phone] Physician Ophthalmology 01/21/22 Neil Kent MD 500 [place], [place] 398785 Dermatology 02/24/22 Roney Story DPM [address] [facility] [address] [place] [address] Assigned Musculoskeletal Provider 03/20/22 08/13/22 Erica Farrell APRN MAKEUP ARTISTRY INSTRUCTOR 1700 [place] [address] Assigned Heart and Vascular Provider 04/03/22 04/16/22 Diana Desir, [facility] [address] [place] [address] Assigned MTM Pharmacist 04/07/22 Jelena David OD [address] [facility] [place] [address] Assigned Surgical Provider 05/08/22 10/08/22 Galo Burrell MD Assigned Heart and Vascular Provider 04/17/22 06/11/22 Livan Sharif MD [address], [facility] [address] [place] [address] Cardiovascular Disease 05/14/22 Livan Sharif MD [address], [facility] [address] [place] [address] Assigned Heart and Vascular Provider 06/12/22 07/23/22 Catherine Cm MD [address] [facility]00 [place] [address] Cardiovascular Disease 07/21/22 Valery Veronica, PA-C [address] [place] [address] Physician Machine Stonecutter Dermatology 07/21/22 Catherine Cm MD [address] [facility] [address] [place] [address] Assigned Heart and Vascular Provider 07/24/22 11/05/22 Johnny Murillo MD [address] [place] [address] 544124 Assigned Musculoskeletal Provider 08/14/22 10/08/22 Brea Quinn APRN MAKEUP ARTISTRY INSTRUCTOR [address] [place] [address] 260335 Nurse Practitioner Dermatology 09/21/22 Brea Quinn APRN MAKEUP ARTISTRY INSTRUCTOR [address] [place] [address], [place] [address] Assigned Surgical Provider 10/09/22 05/01/24 [place] [address] [place] [address] Assigned Musculoskeletal Provider 10/09/22 05/01/24 Livan Sharif MD [address] [facility] [address] [place] [address] Assigned Heart and Vascular Provider 11/06/22 11/12/22 Catherine Cm MD [address] [facility]00 [place] 460565 Assigned Heart and Vascular Provider 11/13/22 05/27/23 Sydnie Martinez RN Personal Advocate & Liaison (PAL) Family Medicine 03/28/23 07/31/23 Alfonso Renteria MD [address] [facility] 200 [place] [address] Assigned Neuroscience Provider 04/02/23 Cheng Todd PA-C [address] [place] [address] Assigned PCP 04/30/23 07/15/23 Radha Lomeli APRN MAKEUP ARTISTRY INSTRUCTOR [address] [place] [address] Assigned Heart and Vascular Provider 05/28/23 Jelena David OD [address] [facility] [place] [address] MD Ophthalmology 06/15/23 Pao Joseph, RN Personal Advocate & Liaison (PAL) Nurse 08/01/23 11/07/23 Esha Grimm PA-C [address] [place] [address] Assigned PCP 07/16/23 Valery Veronica PA-C [address] [place] [address] Physician Machine Stonecutter Dermatology 09/19/23 Rey Tay MD [address] [place] [address] MD Gastroenterology 09/20/23 Rocky Zepeda DO [address] [place] [address] Physician Gastroenterology 09/20/23 Philip Dumont MD [address] [place] [address] Physician Ophthalmology 09/22/23 Meredith Carrera PA-C [address] [place] [address] Assigned Gastroenterology Provider 11/01/23 Neil Kent MD [address] 537870 Dermatology 11/02/23 [place] [address] [place] [address] Neurological Surgery 12/26/23 Audrey Waite PA-C 500 [place] [address] Physician Machine Stonecutter Dermatology 02/28/24 Valery Veronica PA-C [address] [place] [address] Physician Machine Stonecutter Dermatology 04/10/24 Herminia Hatch MD [address] [place] [address] [phone] Assigned Rheumatology Provider 07/02/24 documented as of this encounter
--- OUTSIDE RECORDS SUMMARY | 2024-07-22 20:47 | XMS_ITS | Encounter Summary ---
Author Organization [employer] Address [address] [place] [address] Care Team Providers Care Vacuum Cleaner Mechanic Name Role Phone Lita Oseguera Unavailable Unavailable Marija Edgar APRN WARP TESTER Primary Care Provider + Chanelle Mccann APRN CNM Unavailab le Kyara De La Fuente RN Unavailable [phone] Marija Edgar APRN WARP TESTER Unavailable Mynor Broussard MD Unavailable [phone] Keisha Dotson MD Unavailable [phone] Stacey Briones PROGRAM CONSULTANT Unavailable Lesley Moody CHW Unavailable [phone] Mary Mejia Unavailable Unavailable Lita Oseguera Unavailable Unavailable Galo Burrell MD Unavailable Unavailable Cristina Wood Unavailable Lesley Moody CHW Unavailable Meredith Bedoya Unavailable Unavailable Cristina Wood Unavailable Diana Desir [facility] Unavailable [phone] Rain Galaviz PA-C Unavailable Summer Lara MD Unavailable [phone] Summer Lara MD Unavailable [phone] Summer Lara MD Unavailable [phone] Tavia Wyatt MD Unavailable [phone] Johnny Murillo MD Unavailable +1- Erica Farrell APRN WARP TESTER Unavailable + Vikas Teresita Ka Walter H Unavailable Tavia Wyatt MD Unavailable [phone] Diana Desir [facility] Unavailable [phone] Rich Barrett MD Unavailable [phone] Neil Kent MD Unavailable Roney StoryM Unavailable [phone] Erica Farrell APRN WARP TESTER Unavailable + Diana Desir [facility] Unavailable [phone] Jelena David OD Unavailable [phone] Galo Burrell MD Unavailable Unavailable Livan Sharif MD Unavailable + Livan Sharif MD Unavailable + Catherine Cm MD Unavailable + Valery Veronica PA-C Unavailable [phone] Catherine Cm MD Unavailable + Johnny Murillo MD Unavailable +1- Brea Quinn APRN WARP TESTER Unavailable +1- Brea Quinn APRN WARP TESTER Unavailable [phone] Jose Francisco Johnson MD Unavailable + Livan Sharif MD Unavailable + Catherine Cm MD Unavailable + Sydnie Martinez RN Unavailable Unavailable Alfonso Renteria MD Unavailable [phone] Esha Grimm PA-C Primary Care Provider [phone] Cheng Todd PA-C Unavailable Radha Lomeli APRN WARP TESTER Unavailable FrankieJelena OD Unavailable Pao Joseph RN Unavailable Unavailable Esha Grimm PA-C Unavailable [phone] Valery Veronica PA-C Unavailable [phone] Rey Tay MD Unavailable Rocky Zepeda DO Unavailable Philip Dumont MD Unavailable Meredith Carrera PA-C Unavailable [phone] Neil Kent MD Unavailable Juan Pablo Emmanuel MD Unavailable Audrey Waite PA-C Unavailable JeremíasValery damon PA-C Unavailable Herminia Hatch MD Unavailable Encounter Details Date Type Department Care Team (Late st Contact Info) Description 08/24/[address] [facility] [address] [place] [phone] Marija Edgar APRN WARP TESTER [address] [place] [address] Social History Tobacco Use Types Packs/Day [...] often do you attend [facility] or sabianism services? More than 4 times [...] Answer Date Recorded PHQ-2 Score 0 08/12/2020 [facility] - Occupational Stress [...] PM CDT Legal Sex Female 4:13 AM MANAGED CARE LIAISON Gender Identity Female 03/02/2021 5:45 PM CDT Sexual Orientation Straight 02/28/2020 12 :51 AM CDT COVID-19 Exposure Response Date Recorded In the last month, have you been in contact with someone who was confirmed or suspected to have Coronavirus / COVID-19? No / Unsure 08/20/2020 12:47 PM MANAGED CARE LIAISON documented as of this encounter Miscellaneous Notes * Telephone Encounter - Marija Edgar APRN CNP - 08/25/2020 11:47 AM MANAGED CARE LIAISON Replied via MyChart Marija Edgar APRN WARP TESTER on 08/25/2020 at 11:51 AM GED CARE LIAISON documented in this encounter Plan of Treatment Upcoming Encounters Date Type Department Care Team (Late st Contact Info) Description 10/23/2024 9:30 AM CDT Office Visit [facility] Neurology [address], [address] [place] [phone] [place] [address] [address] Johnny Penn MD 5908 [place], [place] 97[address] 11/28/2024 7:45 AM CDT Virtual Visit [facility] Gastroenterology Clinic [address] [place] [phone] Meredith Carrera PA-C [address] [place] [address] 972055 documented as of this encounter Visit Diagnoses Not on filedocumented in this encounter Additional Health Concerns Infection Onset Date Last Indicated Resolved Time Rule Out COVID-19 08/30/2020 08/30/2020 08/30/2020 5:05 PM MANAGED CARE LIAISON Rule Out COVID-19 09/24/2020 09/24/2020 09/24/2020 9:24 AM CDT Rule Out COVID-19 11/05/2020 11/05/2020 11/06/2020 1:09 PM CDT Rule Out COVID-19 05/11/2021 05/11/2021 05/13/2021 10:18 AM CDT Rule Out COVID-19 07/13/2021 07/13/2021 07/14/2021 3:04 PM MANAGED CARE LIAISON Rule Out COVID-19 07/18/2021 07/18/2021 07/20/2021 1:56 PM MANAGED CARE LIAISON COVID-19 07/18/2021 07/18/2021 08/08/2021 11:3 9 PM MANAGED CARE LIAISON Rule Out COVID-19 12/18/2021 12/18/2021 12/19/2021 11:34 AM CDT Rule Out COVID-19 02/24/2022 02/24/2022 02/25/2022 1:08 PM CDT Rule Out COVID-19 04/26/2022 04/26/2022 04/26/2022 6:47 AM CDT Rule Out COVID-19 05/17/2022 05/17/2022 05/17/2022 10:20 PM MANAGED CARE LIAISON Rule Out COVID-19 06/09/2022 06/09/2022 06/09/2022 9:35 AM MANAGED CARE LIAISON COVID-19 06/09/2022 06/09/2022 06/30/2022 11:4 1 PM MANAGED CARE LIAISON Rule Out COVID-19 11/10/2022 11/10/2022 11/11/2022 12:17 PM CDT Rule Out COVID-19 03/07/2023 03/07/2023 03/07/2023 1:20 PM CDT Rule Out COVID-19 12/26/2023 12/26/2023 12/26/2023 9:50 AM CDT Rule Out COVID-19 04/09/2024 04/09/2024 04/10/2024 6:48 PM CDT Assessment Noted Time PHQ-9 Depression Total Score: 9 06/25/20 20 7:04 AM MANAGED CARE LIAISON documented as of this encounter Care Teams Vacuum Cleaner Mechanic Relationship Specialty Start Date End Date Marija Edgar APRN CNP PCP - General Nurse Practitioner 04/30/20 04/14/23 Esha Grimm PA-C [address] [place] [phone] PCP - General Family Medicine 05/04/23 Lita Oseguera Personal Advocate & Liaison (PAL) 02/28/20 03/27/23 Chanelle Mccann APRN CNAdam [address] [place] [address] 200 [place] [address] Assigned OBGYN Provider 05/02/2005/09 Kyara De La Fuente, VJ Specialty Continuous Improvement Specialist Neurology 06/04/20 03/05/21 Marija Edgar APRN WARP TESTER Assigned PCP 06/08/20 04/29/23 Mynor Broussard MD [address] [facility] 500 [place], [place] 208225 Assigned Surgical Provider 06/01/20 11/28/21 Keisha Dotson MD 909 [place], [place] 983545 Assigned Neuroscience Provider 06/04/20 04/01/23 Stacey Briones, PROGRAM CONSULTANT Lead Continuous Improvement Specialist Primary Care - CC 08/11/2012/30 Lesley [...] Resource Worker 02/09/21 02/09/21 Diana Desir, [facility] 30[address] [place], [place] 771116 Pharmacist Pharmacist 04/17/21 Rain Galaviz PA-C [address] [place] [address] [address] [place], [place] [phone] Physician Machine Stamper Dermatology 04/28/21 Summer Lara MD [address] [place] [address] [phone] Assigned OBGYN Provider 05/10/2105/23 Summer Lara MD [address] [place] [address] [phone] Assigned OBGYN Provider 05/31/21 2 Summer Lara MD [address] [place] [address] [phone] Assigned OBGYN Provider 05/24/2105/30 Tavia Wyatt MD [address] [place] [address] [phone] Dermatology 07/14/21 Johnny Murillo MD [address] [facility] [place] [facility] [address] [place] [address] Assigned Musculoskeletal Provider 08/30/21 03/17/22 Erica Farrell APRN WARP TESTER 6405 [facility] [address] [place] [address] Nurse Practitioner Cardiovascular Disease 09/09/21 Teresita Bean [facility] [address] [facility] [address] [place] [phone] Pharmacist Pharmacist 09/24/21 09/29/21 Tavia Wyatt MD [address] [place] [address] Assigned Surgical Provider 11/29/21 05/07/22 [facility] 3033 [place] [address] Assigned MTM Pharmacist 01/02/22 Rich Barrett MD [address] [facility] 9A [place], [place] 853285 Physician Ophthalmology 01/21/22 Neil Kent MD 500 [place], [place] [phone] Dermatology 02/24/22 Roney Story DPM [address] [facility] [address] [place], [place] 888[address] Assigned Musculoskeletal Provider 03/20/22 08/13/22 Erica Farrell APRN WARP TESTER 1700 [place] [address] Assigned Heart and Vascular Provider 04/03/22 04/16/22 Diana Desir, [facility] [address] [place] [address] Assigned MTM Pharmacist 04/07/22 Jelena David [place] [address] [place] [address] Assigned Surgical Provider 05/08/22 10/08/22 Galo Burrell MD Assigned Heart and Vascular Provider 04/17/22 06/11/22 Livan Sharif MD [address], [place] [address] [place] [address] Cardiovascular Disease 05/14/22 Livan Sharif MD [address], [place] [address] [place] [address] Assigned Heart and Vascular Provider 06/12/22 07/23/22 Catherine Cm MD [address] [place] [address] [place] 945065 Cardiovascular Disease 07/21/22 Valery Veronica, PAUcheC 909 [place] [address] Physician Machine Stamper Dermatology 07/21/22 Catherine Cm MD [address] [facility]00 [place] [phone] Assigned Heart and Vascular Provider 07/24/22 11/05/22 Johnny Murillo MD [address] 155334 Assigned Musculoskeletal Provider 08/14/22 10/08/22 Brea Quinn APRN WARP TESTER 500 [place], [place] 308455 Nurse Practitioner Dermatology 09/21/22 Brea Quinn APRN WARP TESTER 6401 [facility] [place] 651042 Assigned Surgical Provider 10/09/22 05/01/24 [place] [address] 557557 Assigned Musculoskeletal Provider 10/09/22 05/01/24 Livan Sharif MD [address] [facility]00 [place] 259755 Assigned Heart and Vascular Provider 11/06/22 11/12/22 Catherine Cm MD [address] [facility]00 [place] 470445 Assigned Heart and Vascular Provider 11/13/22 05/27/23 Sydnie Martinez RN Personal Advocate & Liaison (PAL) Family Medicine 03/28/23 07/31/23 Alfonso Renteria MD 5775 [facility] [address]NI 200 [place] [address] Assigned Neuroscience Provider 04/02/23 Cheng Todd PA-C [address] [place] [address] Assigned PCP 04/30/23 07/15/23 Radha Lomeli APRN WARP TESTER 6405 [facility] [address] [place], [place] 146485 Assigned Heart and Vascular Provider 05/28/23 Jelena David OD [address] [place] [address] Ophthalmology 06/15/23 Pao Joseph, VJ Personal Advocate & Liaison (PAL) Nurse 08/01/23 11/07/23 Esha Grimm PA-C [address] [place] [address] Assigned PCP 07/16/23 Valery Veronica PA-C [address] [place] [address] 820865 Physician Machine Stamper Dermatology 09/19/23 Rey Tay MD [address] [place] [address] 712005 Gastroenterology 09/20/23 Rocky Zepeda DO [address] [place] [address] 370875 Physician Gastroenterology 09/20/23 Philip Dumont MD 516 [place] [address] Physician Ophthalmology 09/22/23 Meredith Carrera PA-C 909 [place] [address] Assigned Gastroenterology Provider 11/01/23 Neil Kent MD [address] [address] Dermatology 11/02/23 [place] [address] [address] Neurological Surgery 12/26/23 Audrey Waite PA-C [address] [place] [address] 297255 Physician Machine Stamper Dermatology 02/28/24 Valery Veronica PA-C [address] [place] [address] Physician Machine Stamper Dermatology 04/10/24 Herminia Hatch MD [facility]5 [place] [address] Assigned Rheumatology Provider 07/02/24 documented as of this encounter
--- OUTSIDE RECORDS SUMMARY | 2024-07-22 20:48 | XMS_ITS | Encounter Summary ---
Author Organization [facility] Address [address] [place] [address] Care Team Providers Care Director Clinical Data Name Role Phone Lita Oseguera Unavailable Unavailable Marija Edgar APRN PLACEMENT DIRECTOR Primary Care Provider + Chanelle Mccann REMEDIAL MASSEUR CNM Unavailab le Kyara De La Fuente RN Unavailable [phone] Marija Edgar APRN PLACEMENT DIRECTOR Unavailable Mynor Broussard MD Unavailable [phone] Keisha Dotson MD Unavailable [phone] Mary Mejia Unavailable Unavailable Stacey Briones WATCHGUARD Unavailable [phone] Lesley Moody CHW Unavailable Mary Mejia Unavailable Unavailable Lita Oseguera Unavailable Unavailable Galo Burrell MD Unavailable Unavailable Cristina Wood Unavailable Lesley Moody CHW Unavailable [phone] Meredith Bedoya Unavailable Unavailable Cristina Wood Unavailable Diana Desir [facility] Unavailable [phone] Ruhland, Rain Lena PA-C Unavailable Summer Lara MD Unavailable [phone] Summer Lara MD Unavailable [phone] Summer Lara MD Unavailable [phone] Tavia Wyatt MD Unavailable [phone] Johnny Murillo MD Unavailable +1- Erica Farrell REMEDIAL MASSEUR PLACEMENT DIRECTOR Unavailable VikasTeresita H Unavailable Tavia Wyatt MD Unavailable [phone] Diana Desir [facility] Unavailable [phone] Rich Barrett MD Unavailable Neil Kent MD Unavailable Roney Story [facility] Unavailable Erica Farrell APRN PLACEMENT DIRECTOR Unavailable Diana Desir [facility] Unavailable [phone] Jelena David OD Unavailable Galo Burrell MD Unavailable Unavailable Livan Sharif MD Unavailable Livan Sharif MD Unavailable + Catherine Cm MD Unavailable + Valery Veronica PA-C Unavailable [phone] Catherine Cm MD Unavailable + Johnny Murillo MD Unavailable +1- Brea Quinn REMEDIAL MASSEUR PLACEMENT DIRECTOR Unavailable +[phone] Brea Quinn REMEDIAL MASSEUR PLACEMENT DIRECTOR Unavailable [phone] Jose Francisco Johnson MD Unavailable Livan Sharif MD Unavailable Catherine Cm MD Unavailable + Sydnie Martinez RN Unavailable Unavailable Alfonso Renteria MD Unavailable [phone] Esha Grimm PA-C Primary Care Provider Cheng Todd PA-C Unavailable [phone] ArmaniRadha APRN PLACEMENT DIRECTOR Unavailable Jelena David OD Unavailable Pao Joseph RN Unavailable Unavailable Esha Grimm PA-C Unavailable [phone] Valery Veronica PA-C Unavailable Rey Tay MD Unavailable Rocky Zepeda DO Unavailable Philip Dumont MD Unavailable [phone] Meredith Carrera PA-C Unavailable [phone] Neil Kent MD Unavailable Juan Pablo Emmanuel MD Unavailable Audrey Waite PA-C Unavailable [phone] JeremíasValery damon PA-C Unavailable [phone] Herminia Hatch MD Unavailable Encounter Details Date Type Department Care Team (Late st Contact Info) Description 08/07/2020 MyC Medical Advice [facility] Care Coordination [facility] [address] [place] [address] Lesley Moody, [facility] Social History Tobacco Use Types Packs/Day [...] week 08/07/2020 How often do you attend [facility] or hindu services? More than 4 times [...] Date Recorded PHQ-2 Score 3 06/24/2020 [facility] of Occupat ional Health - Occupational Stress [...] in a halfway (including now)? No 08/11/2020 Education Answer Date Recorded What is the highest level of school you have completed or the highest degree you have received? 12th grade 08/07/2020 Comments Yes Sex and Gender Information Value Date Recorded Sex Assigned at Female 03/02/2021 5:45 PM CDT Legal Sex Female 4:13 AM PLASTIC PRESS MOLDER Gender Identity Female 03/02/2021 5:45 PM CDT Sexual Orientation Straight 02/28/2020 12 :51 AM CDT COVID-19 Exposure Response Date Recorded In the last month, have you been in contact with someone who was confirmed or suspected to have Coronavirus / COVID-19? No / Unsure 08/06/2020 2:03 PM PLASTIC PRESS MOLDER documented as of this encounter Plan of Treatment Upcoming Encounters Date Type Department Care Team (Late st Contact Info) Description 10/23/2024 9:30 AM CDT Office Visit [facility] Neurology Clinics [facility] [address], [address] [place] [phone] [place] [address] [place], [place] [phone] Johnny Penn MD [address] [place] [id number] 11/28/2024 7:45 AM CDT Virtual Visit [facility] G[facility] [address] 4[address] [place] [phone] Meredith Carrera PA-C [address] [place] [phone] documented as of this encounter Visit Diagnoses Not on filedocumented in this encounter Additional Health Concerns Infection Onset Date Last Indicated Resolved Time Rule Out COVID-19 08/30/2020 08/30/2020 08/30/2020 5:05 PM PLASTIC PRESS MOLDER Rule Out COVID-19 09/24/2020 09/24/2020 09/24/2020 9:24 AM CDT Rule Out COVID-19 11/05/2020 11/05/2020 11/06/2020 1:09 PM CDT Rule Out COVID-19 05/11/2021 05/11/2021 05/13/2021 10:18 AM CDT Rule Out COVID-19 07/13/2021 07/13/2021 07/14/2021 3:04 PM PLASTIC PRESS MOLDER Rule Out COVID-19 07/18/2021 07/18/2021 07/20/2021 1:56 PM PLASTIC PRESS MOLDER COVID-19 07/18/2021 07/18/2021 08/08/2021 11:3 9 PM PLASTIC PRESS MOLDER Rule Out COVID-19 12/18/2021 12/18/2021 12/19/2021 11:34 AM CDT Rule Out COVID-19 02/24/2022 02/24/2022 02/25/2022 1:08 PM CDT Rule Out COVID-19 04/26/2022 04/26/2022 04/26/2022 6:47 AM CDT Rule Out COVID-19 05/17/2022 05/17/2022 05/17/2022 10:20 PM PLASTIC PRESS MOLDER Rule Out COVID-19 06/09/2022 06/09/2022 06/09/2022 9:35 AM PLASTIC PRESS MOLDER COVID-19 06/09/2022 06/09/2022 06/30/2022 11:4 1 PM PLASTIC PRESS MOLDER Rule Out COVID-19 11/10/2022 11/10/2022 11/11/2022 12:17 PM CDT Rule Out COVID-19 03/07/2023 03/07/2023 03/07/2023 1:20 PM CDT Rule Out COVID-19 12/26/2023 12/26/2023 12/26/2023 9:50 AM CDT Rule Out COVID-19 04/09/2024 04/09/2024 04/10/2024 6:48 PM CDT Assessment Noted Time PHQ-9 Depression Total Score: 9 06/25/20 20 7:04 AM PLASTIC PRESS MOLDER documented as of this encounter Care Teams Director Clinical Data Relationship Specialty Start Date End Date Marija Edgar APRN PLACEMENT DIRECTOR PCP - General Nurse Practitioner 04/30/20 04/14/23 Esha Grimm PA-C [address] [place] [address] PCP - General Family Medicine 05/04/23 Lita Oseugera Personal Advocate & Liaison (PAL) 02/28/20 03/27/23 Chanelle Mccann APRN CNM [address] [place] [address] Assigned OBGYN Provider 05/02/2005/09 Kyara De La Fuente, RN Specialty Support Merchandiser Neurology 06/04/20 03/05/21 Marija Edgar APRN PLACEMENT DIRECTOR Assigned PCP 06/08/20 04/29/23 Mynor Broussard MD [address] [facility] [address] [place], [place] 2789[address] Assigned Surgical Provider 06/01/20 11/28/21 Keisha Dotson MD [address] [place], [place] [address]26[address] Assigned Neuroscience Provider 06/04/20 04/01/23 Mary Mejia Financial Resource Worker 08/07/20 08/21/20 Stacey Briones, [facility] Lead Support Merchandiser Primary Care - CC 08/11/2012/30 Lesley Moody, [...] Desir, [facility] [address] [facility] [address] Pharmacist Pharmacist 04/17/21 Rain Galaviz PA-C [address] [facility] [address] [place] [address] Physician Dairy Farm Manager Dermatology 04/28/21 Summer Lara MD [address] [place] [address] Assigned OBGYN Provider 05/10/2105/23 Summer Lara MD [address] [place], [place] [address] Assigned OBGYN Provider 05/31/21 Summer Lara MD [address] [place], [place] [address] Assigned OBGYN Provider 05/24/2105/30 Tavia Wyatt MD [address] [place], [place] [address] Dermatology 07/14/21 Johnny Murillo MD [address] [facility] [address] [place] [address] Assigned Musculoskeletal Provider 08/30/21 03/17/22 Erica Farrell APRN PLACEMENT DIRECTOR [address] [facility] [address] [place] [address] Nurse Practitioner Cardiovascular Disease 09/09/21 Teresita Bean [facility] [address] [facility] [place] [address] Pharmacist Pharmacist 09/24/21 09/29/21 Tavia Wyatt MD [address] [place] [address] Assigned Surgical Provider 11/29/21 05/07/22 Diana Desir [facility] [address] [place] [address] Assigned MTM Pharmacist 01/02/22 Rich Barrett MD [address] 082[address] Physician Ophthalmology 01/21/22 Neil Kent MD [address] [place] [address] Dermatology 02/24/22 Roney Story DPM [address] [facility] [address] [place] [address] Assigned Musculoskeletal Provider 03/20/22 08/13/22 Erica Farrell APRN PLACEMENT DIRECTOR [address] [place] [address] Assigned Heart and Vascular Provider 04/03/22 04/16/22 Diana Desir [facility] [address] [place] [address] Assigned MTM Pharmacist 04/07/22 Jelena David OD [address] [facility] [place] [address] Assigned Surgical Provider 05/08/22 10/08/22 Galo Burrell MD Assigned Heart and Vascular Provider 04/17/22 06/11/22 Livan Sharif MD [address] [place], [place] [address] Cardiovascular Disease 05/14/22 Livan Sharif MD [address] [place] [phone] Assigned Heart and Vascular Provider 06/12/22 07/23/22 Catherine Cm MD [address] [facility] [address] [place] 960[address] Cardiovascular Disease 07/21/22 Valery Veronica, PA-C [address] [place], [place] [address] Physician Dairy Farm Manager Dermatology 07/21/22 Catherine Cm MD [address] [address] [place] [address] Assigned Heart and Vascular Provider 07/24/22 11/05/22 Johnny Murillo MD [address] [place] [address] [id number] Assigned Musculoskeletal Provider 08/14/22 10/08/22 Brea Quinn APRN PLACEMENT DIRECTOR [address] [place] [address] Nurse Practitioner Dermatology 09/21/22 Brea Quinn APRN PLACEMENT DIRECTOR [address] [place] [address] Assigned Surgical Provider 10/09/22 05/01/24 [place] [address] [address] Assigned Musculoskeletal Provider 10/09/22 05/01/24 Livan Sharif MD [address] [facility] [address] [place] [address] Assigned Heart and Vascular Provider 11/06/22 11/12/22 Catherine Cm MD [address] [facility] [address] [place] [address] Assigned Heart and Vascular Provider 11/13/22 05/27/23 Sydnie Martinez RN Personal Advocate & Liaison (PAL) Family Medicine 03/28/23 07/31/23 Alfonso Renteria MD [address] [facility] [address] [place], [place] 8[address] Assigned Neuroscience Provider 04/02/23 Cheng Todd PA-C [address] [place] [address] [id number] Assigned PCP 04/30/23 07/15/23 Radha Lomeli APRN CNP [address] [facility] [address] [address] [place] [address] Assigned Heart and Vascular Provider 05/28/23 Jelena David OD [address] [facility] [place] [address] MD Ophthalmology 06/15/23 Pao Joseph, VJ Personal Advocate & Liaison (PAL) Nurse 08/01/23 11/07/23 Esha Grimm PA-C [address] [place] [phone] Assigned PCP 07/16/23 Valery Veronica PA-C [address] [place] [address] Physician Dairy Farm Manager Dermatology 09/19/23 Rey Tay MD [address] [place] [address] [phone] MD Gastroenterology 09/20/23 Rocky Zepeda DO [address] [place] [address]545 Physician Gastroenterology 09/20/23 Philip Dumont MD [address] [place] [address]995 Physician Ophthalmology 09/22/23 Meredith Carrera PA-C [address] [place] [address] [phone] Assigned Gastroenterology Provider 11/01/23 Neil Kent MD [address] [address] Dermatology 11/02/23 [place] [address] [place] [address] 036967 Neurological Surgery 12/26/23 Audrey Waite PAUcheC [address] [place] [address] Physician Dairy Farm Manager Dermatology 02/28/24 Valery Veronica PABaldo 800482 [address], [place] [address] Physician Dairy Farm Manager Dermatology 04/10/24 Herminia Hatch MD [facility] [place], [place] [id number] Assigned Rheumatology Provider 07/02/24 documented as of this encounter
--- OUTSIDE RECORDS SUMMARY | 2024-07-22 20:48 | XMS_ITS | Encounter Summary ---
Author Organization [facility] Address [address] [place] [address] Care Team Providers Care Electro Mechanical Designer Name Role Phone Lita Oseguera Unavailable Unavailable Marija Edgar APRN METERS SUPERINTENDENT Primary Care Provider + Chanelle Mccann SVP DIGITAL AD SALES CNM Unavailab le Kyara De La Fuente RN Unavailable [phone] Marija Edgar APRN METERS SUPERINTENDENT Unavailable Mynor Broussard MD Unavailable [phone] Keisha Dotson MD Unavailable Mary Mejia Unavailable Unavailable Stacey Briones MANAGER DIGITAL AD OPERATIONS Unavailable Lesley Moody CHW Unavailable [phone] Mary Mejia Unavailable Unavailable Lita Oseguera Unavailable Unavailable Galo Burrell MD Unavailable Unavailable Cristina Wood Unavailable Lesley Moody CHW Unavailable [phone] Meredith Bedoya Unavailable Unavailable Cristina Wood Unavailable Diana Desir [facility] Unavailable Ruhland, Rain Lena PA-C Unavailable Summer Lara MD Unavailable [phone] Summer Lara MD Unavailable [phone] Summer Lara MD Unavailable [phone] Tavia Wyatt MD Unavailable [phone] Johnny Murillo MD Unavailable +1- Erica Farrell SVP DIGITAL AD SALES METERS SUPERINTENDENT Unavailable VikasTeresita H Unavailable Tavia Wyatt MD Unavailable [phone] Diana Desir [facility] Unavailable [phone] Rich Barrett MD Unavailable Neil Kent MD Unavailable Roney Story [facility] Unavailable Erica Farrell APRN METERS SUPERINTENDENT Unavailable Diana Desir [facility] Unavailable [phone] Jelena David OD Unavailable Galo Burrell MD Unavailable Unavailable Livan Sharif MD Unavailable Livan Sharif MD Unavailable + Catherine Cm MD Unavailable + Valery Veronica PA-C Unavailable [phone] Catherine Cm MD Unavailable + Johnny Murillo MD Unavailable +1- Brea Quinn SVP DIGITAL AD SALES METERS SUPERINTENDENT Unavailable [phone] Brea Quinn SVP DIGITAL AD SALES METERS SUPERINTENDENT Unavailable [phone] Jose Francisco Johnson MD Unavailable Livan Sharif MD Unavailable Catherine Cm MD Unavailable + Sydnie Martinez RN Unavailable Unavailable Alfonso Renteria MD Unavailable [phone] Esha Grimm PA-C Primary Care Provider [phone] Cheng Todd PA-C Unavailable LomeliRadha APRN METERS SUPERINTENDENT Unavailable Jelena David OD Unavailable [phone] Pao Joseph RN Unavailable Unavailable Esha Grimm PA-C Unavailable [phone] Valery Veronica PA-C Unavailable Rey Tay MD Unavailable Rocky Zepeda DO Unavailable Philip Dumont MD Unavailable [phone] Meredith Carrera PA-C Unavailable [phone] Neil Kent MD Unavailable Juan Pablo Emmanuel MD Unavailable Audrey Waite PA-C Unavailable JeremíasValery damon PA-C Unavailable [phone] Herminia Hatch MD Unavailable Reason for Visit * Reason Comments Medication Refill Encounter Details Date Type Department Care Team (Late st Contact Info) Description 07/14/[address] [address] Rakesh Cid PA-C [address] [place] [address] Medication Refill Social History Tobacco [...] PM CDT Legal Sex Female 4:13 AM WILDLIFE MANAGEMENT PROFESSOR Gender Identity Female 03/02/2021 5:45 PM CDT Sexual Orientation Straight 02/28/2020 12 :51 AM CDT COVID-19 Exposure Response Date Recorded In the last month, have you been in contact with someone who was confirmed or suspected to have Coronavirus / COVID-19? No / Unsure 06/24/2020 3:01 PM WILDLIFE MANAGEMENT PROFESSOR documented as of this encounter Miscellaneous Notes * Telephone Encounter - Estephania Black RN - 07/16/2020 11:38 AM WILDLIFE MANAGEMENT PROFESSOR Routing refill request to provider for review/approval because: Labs out of range: PHQ9> 4 patient was seen 3 weeks ago. Estephania Black RN Flex LIFE MANAGEMENT PROFESSOR * Telephone Encounter - Brea Perry RN - 07/16/2020 11:34 AM WILDLIFE MANAGEMENT PROFESSOR Routing to correct clinic. LIFE MANAGEMENT PROFESSOR documented in this encounter Plan of Treatment Upcoming Encounters Date Type Department Care Team (Late st Contact Info) Description 10/23/2024 9:30 AM CDT Office Visit [facility] [address] [place] [address], [address] [place] [address] [place] [address] [place] [id number] Johnny Penn MD [address] [place] [id number] 11/28/2024 7:45 AM CDT Virtual Visit [facility] [place] [address] [facility] [address] 4th [place] [phone] Meredith Carrera PA-C [address] [place] [address] documented as of this encounter Visit Diagnoses Diagnosis Anxiety Anxiety state, unspecified documented in this encounter Additional Health Concerns Infection Onset Date Last Indicated Resolved Time Rule Out COVID-19 07/30/2020 07/30/2020 07/30/2020 7:11 PM WILDLIFE MANAGEMENT PROFESSOR Rule Out COVID-19 08/30/2020 08/30/2020 08/30/2020 5:05 PM WILDLIFE MANAGEMENT PROFESSOR Rule Out COVID-19 09/24/2020 09/24/2020 09/24/2020 9:24 AM CDT Rule Out COVID-19 11/05/2020 11/05/2020 11/06/2020 1:09 PM CDT Rule Out COVID-19 05/11/2021 05/11/2021 05/13/2021 10:18 AM CDT Rule Out COVID-19 07/13/2021 07/13/2021 07/14/2021 3:04 PM WILDLIFE MANAGEMENT PROFESSOR Rule Out COVID-19 07/18/2021 07/18/2021 07/20/2021 1:56 PM WILDLIFE MANAGEMENT PROFESSOR COVID-19 07/18/2021 07/18/2021 08/08/2021 11:3 9 PM WILDLIFE MANAGEMENT PROFESSOR Rule Out COVID-19 12/18/2021 12/18/2021 12/19/2021 11:34 AM CDT Rule Out COVID-19 02/24/2022 02/24/2022 02/25/2022 1:08 PM CDT Rule Out COVID-19 04/26/2022 04/26/2022 04/26/2022 6:47 AM CDT Rule Out COVID-19 05/17/2022 05/17/2022 05/17/2022 10:20 PM WILDLIFE MANAGEMENT PROFESSOR Rule Out COVID-19 06/09/2022 06/09/2022 06/09/2022 9:35 AM WILDLIFE MANAGEMENT PROFESSOR COVID-19 06/09/2022 06/09/2022 06/30/2022 11:4 1 PM WILDLIFE MANAGEMENT PROFESSOR Rule Out COVID-19 11/10/2022 11/10/2022 11/11/2022 12:17 PM CDT Rule Out COVID-19 03/07/2023 03/07/2023 03/07/2023 1:20 PM CDT Rule Out COVID-19 12/26/2023 12/26/2023 12/26/2023 9:50 AM CDT Rule Out COVID-19 04/09/2024 04/09/2024 04/10/2024 6:48 PM CDT Assessment Noted Time PHQ-9 Depression Total Score: 9 06/25/20 7:04 AM WILDLIFE MANAGEMENT PROFESSOR documented as of this encounter Care Teams Electro Mechanical Designer Relationship Specialty Start Date End Date Marija Edgar APRN METERS SUPERINTENDENT PCP - General Nurse Practitioner 04/30/20 04/14/23 Esha Grimm PA-C [address] [place] [phone] PCP - General Family Medicine 05/04/23 Lita Oseguera Personal Advocate & Liaison (PAL) 02/28/20 03/27/23 [place] [address] [place] [address] Assigned OBGYN Provider 05/02/2005/09 Kyara De La Fuente, RN Specialty Lithographic Retoucher Apprentice Neurology 06/04/20 03/05/21 Marija Edgar APRN METERS SUPERINTENDENT Assigned PCP 06/08/20 04/29/23 Mynor Broussard MD [address] [facility] [address] [place], [place] 395[address] Assigned Surgical Provider 06/01/20 11/28/21 Keisha Dotson MD [address] [place], [place] 674[address] Assigned Neuroscience Provider 06/04/20 04/01/23 Mary Mejia Financial Resource Worker 08/07/20 08/21/20 Stacey Briones, [facility] Lead Lithographic Retoucher Apprentice Primary Care - CC 08/11/2012/30 Lesley Moody, [facility] Community Health Worker 08/11/2010/01 Mary Mejia Financial Resource Worker 09/02/20 10/06/20 Lita Oseguera Personal Advocate & Liaison (PAL) Family Medicine 09/10/20 09/21/20 Galo Burrell MD Assigned Heart and Vascular Provider 10/05/20 04/02/22 Cristina Wood Financial Resource Worker 10/07/20 10/14/20 Lesley Moody, [facility] Community Health Worker 10/23/2012/30 Meredith Bedoya Financial Resource Worker 10/23/20 11/23/20 Cristina Wood Financial Resource Worker 02/09/21 02/09/21 Diana Desir, [facility] [address] [place] [address] Pharmacist Pharmacist 04/17/21 Rain Galaviz PA-C [address] [place] [address] [address] [facility] [place] [address] Physician Product Marketer Dermatology 04/28/21 Summer Lara MD [address] [place] [address] Assigned OBGYN Provider 05/10/2105/23 Summer Lara MD [address] [place] [address] Assigned OBGYN Provider 05/31/21 Summer Lara MD [address] [place] [address] Assigned OBGYN Provider 05/24/2105/30 Tavia Wyatt MD [address] [place] [address] Dermatology 07/14/21 Johnny Murillo MD [address] [facility] [address] [place] [address] Assigned Musculoskeletal Provider 08/30/21 03/17/22 Erica Farrell APRN METERS SUPERINTENDENT [address] [facility] [address] [place] [address] Nurse Practitioner Cardiovascular Disease 09/09/21 Teresita Bean [facility] [address] [place] [address] Pharmacist Pharmacist 09/24/21 09/29/21 Tavia Wyatt MD [address] [place] [address] Assigned Surgical Provider 11/29/21 05/07/22 Diana Desir, [facility] [address] [place] [address] Assigned MTM Pharmacist 01/02/22 Rich Barrett MD [address] [phone] Physician Ophthalmology 01/21/22 Neil Kent MD [address] [place] [address] Dermatology 02/24/22 Roney Story DPM [address] [facility] [address] [place] [address] Assigned Musculoskeletal Provider 03/20/22 08/13/22 Erica Farrell APRN METERS SUPERINTENDENT [address] [place] [address] Assigned Heart and Vascular Provider 04/03/22 04/16/22 Diana Desir, [facility] [address] [place] [address] Assigned MTM Pharmacist 04/07/22 Jelena David OD [address] [place] [address] [place] [address] Assigned Surgical Provider 05/08/22 10/08/22 Galo Burrell MD Assigned Heart and Vascular Provider 04/17/22 06/11/22 Livan Sharif MD [address], [facility] [address] [place] [phone] Cardiovascular Disease 05/14/22 Livan Sharif MD [address], [facility] [address] [place] [phone] Assigned Heart and Vascular Provider 06/12/22 07/23/22 Catherine Cm MD [address] [facility] [place] [phone] Cardiovascular Disease 07/21/22 Valery Veronica, PAUcheC [address] [place] [address] [phone] Physician Product Marketer Dermatology 07/21/22 Catherine Cm MD [address] [facility] [facility] [place] [phone] Assigned Heart and Vascular Provider 07/24/22 11/05/22 Johnny Murillo MD [address] [place] [address] [phone] Assigned Musculoskeletal Provider 08/14/22 10/08/22 Brea Quinn APRN METERS SUPERINTENDENT [address] [place] [address] 507245 Nurse Practitioner Dermatology 09/21/22 Brea Quinn APRN METERS SUPERINTENDENT [address] [place] [address] [place] 327752 [phone] Assigned Surgical Provider 10/09/22 05/01/24 [place] [address] [place] [address] Assigned Musculoskeletal Provider 10/09/22 05/01/24 Livan Sharif MD [address] [facility] [address] [place] [address] Assigned Heart and Vascular Provider 11/06/22 11/12/22 Catherine Cm MD [address] [facility] [address] [place] [address] Assigned Heart and Vascular Provider 11/13/22 05/27/23 Sydnie Martinez RN Personal Advocate & Liaison (PAL) Family Medicine 03/28/23 07/31/23 Alfonso Renteria MD [address] [facility] [address] [place] [address] Assigned Neuroscience Provider 04/02/23 Cheng Todd PA-C [address] [place] [address] [phone] Assigned PCP 04/30/23 07/15/23 Radha Lomeli APRN METERS SUPERINTENDENT [address] [place] [address] Assigned Heart and Vascular Provider 05/28/23 Jelena Daivd OD [address] [place] [address] MD Ophthalmology 06/15/23 Pao Joseph, RN Personal Advocate & Liaison (PAL) Nurse 08/01/23 11/07/23 Esha Grimm PA-C [address] [place] [phone] Assigned PCP 07/16/23 Valery Veronica PA-C [address] [place] [address] 638235 Physician Product Marketer Dermatology 09/19/23 Rey Tay MD [address] [place] [address] [phone] MD Gastroenterology 09/20/23 Rocky Zepeda DO [address] [place] [address] [phone] Physician Gastroenterology 09/20/23 Philip Dumont MD [address] [place] [address] 265555 Physician Ophthalmology 09/22/23 Meredith Carrera PA-C [address] [place] [address] 411305 Assigned Gastroenterology Provider 11/01/23 Neil Kent MD [address] 231400 Dermatology 11/02/23 [place] [address] [place] [address] Neurological Surgery 12/26/23 Audrey Waite PA-C [address] [place] [address] Physician Product Marketer Dermatology 02/28/24 Valery Veronica PA-C [id number] [place] [address] Physician Product Marketer Dermatology 04/10/24 Herminia Hatch MD [address] [place] [address] [phone] Assigned Rheumatology Provider 07/02/24 documented as of this encounter
--- OUTSIDE RECORDS SUMMARY | 2024-07-22 20:48 | XMS_ITS | Encounter Summary ---
Author Organization [facility] Address [address] [place] [address] Care Team Providers Care Wire Stitcher Machine Name Role Phone Lita Oseguera Unavailable Unavailable Rakesh Cid PA-C Unavailable Marija Edgar APRN ORCHARD MANAGER Primary Care Provider + Chanelle Mccann RICE DRIER OPERATOR CN Unavailab le Lesley Moody CHW Unavailable Kyara De La Fuente RN Unavailable [phone] Marija Edgar APRN [facility] Unavailable Mynor [facility] MD Unavailable [phone] Keisha Dotson MD Unavailable Mary Mejia Unavailable Unavailable Stacey Briones R D INTERN Unavailable Lesley Moody CHW Unavailable [phone] Mary Mejia Unavailable Unavailable Lita Oseguera Unavailable Unavailable Galo uBrrell MD Unavailable Unavailable Cristina Wood Unavailable Lesley Moody CHW Unavailable Meredith Bedoya Unavailable Unavailable Cristina Wood Unavailable Diana Desir [facility] Unavailable [phone] Rain Galaviz PA-C Unavailable Summer Lara MD Unavailable [phone] Summer Lara MD Unavailable [phone] Summer Lara MD Unavailable [phone] Tavia Wyatt MD Unavailable [phone] Johnny Murillo MD Unavailable +1- Erica Farrell APRN ORCHARD MANAGER Unavailable + Teresita Bean [facility] Unavailable Tavia Wyatt MD Unavailable [phone] Diana Desir [facility] Unavailable [phone] Rich Barrett MD Unavailable [phone] Neil Kent MD Unavailable Roney Story DPM Unavailable Erica Farrell APRN ORCHARD MANAGER Unavailable + Diana Desir [facility] Unavailable [phone] FrankieJelena OD Unavailable Galo Burrell MD Unavailable Unavailable Livan Sharif MD Unavailable + Livan Sharif MD Unavailable + Catherine Cm MD Unavailable + Valery Veronica PA-C Unavailable [phone] Catherine Cm MD Unavailable + Johnny Murillo MD Unavailable +1- Brea Quinn APRN ORCHARD MANAGER Unavailable +[phone] [place], Brea P RICE DRIER OPERATOR ORCHARD MANAGER Unavailable Jose Francisco Johnson MD Unavailable Livan Sharif MD Unavailable Catherine Cm MD Unavailable + Sydnie Martinez RN Unavailable Unavailable Alfonso Renteria MD Unavailable [phone] Esha Grimm PA-C Primary Care Provider Cheng Todd PA-C Unavailable Armani Radha Stovall RICE DRIER OPERATOR ORCHARD MANAGER Unavailable Jelena David OD Unavailable Pao Joseph RN Unavailable Unavailable Esha Grimm PA-C Unavailable [phone] Valery Veronica PA-C Unavailable Rey Tay MD Unavailable Rocky Zepeda DO Unavailable Philip Dumont MD Unavailable [phone] Meredith Carrera PA-C Unavailable [phone] Niel Kent MD Unavailable Juan Pablo Emmanuel MD Unavailable [phone] Audrey Waite PA-C Unavailable Valery Veronica PA-C Unavailable Herminia Hatch MD Unavailable Reason for Visit * Reason Onset Date Comments Referral 05/19/2020 Encounter Details Date Type Department Care Team (Late st Contact Info) Description 05/19/2020 Telephone [facility] [address], [address] [place] [address] Unknown Referral Social History Tobacco [...] PM CDT Legal Sex Female 4:13 AM CONTRACT LEAD Gender Identity Female 03/02/2021 5:45 PM CDT Sexual Orientation Straight 02/28/2020 12 :51 AM CDT COVID-19 Exposure Response Date Recorded In the last month, have you been in contact with someone who was confirmed or suspected to have Coronavirus / COVID-19? No / Unsure 05/12/2020 9:03 AM CONTRACT LEAD documented as of this encounter Miscellaneous Notes [...] [facility] Travel Screening: Not Applicable RACT LEAD documented in this encounter Plan of Treatment Upcoming Encounters Date Type Department Care Team (Late st Contact Info) Description 10/23/2024 9:30 AM CDT Office Visit [facility] Neurology [facility] [address], [address] [place] [address] [place] [address] [place] [address] Johnny Penn MD [address] [facility] [place] [id number] 11/28/2024 7:45 AM CDT Virtual Visit [facility] Gastro[facility]ology [facility] [place] [address] [phone] Meredith Carrera PA-C [address] [place] [address] documented as of this encounter Visit Diagnoses Not on filedocumented in this encounter Additional Health Concerns Infection Onset Date Last Indicated Resolved Time Rule Out COVID-19 07/30/2020 07/30/2020 07/30/2020 7:11 PM CONTRACT LEAD Rule Out COVID-19 08/30/2020 08/30/2020 08/30/2020 5:05 PM CONTRACT LEAD Rule Out COVID-19 09/24/2020 09/24/2020 09/24/2020 9:24 AM CDT Rule Out COVID-19 11/05/2020 11/05/2020 11/06/2020 1:09 PM CDT Rule Out COVID-19 05/11/2021 05/11/2021 05/13/2021 10:18 AM CDT Rule Out COVID-19 07/13/2021 07/13/2021 07/14/2021 3:04 PM CONTRACT LEAD Rule Out COVID-19 07/18/2021 07/18/2021 07/20/2021 1:56 PM CONTRACT LEAD COVID-19 07/18/2021 07/18/2021 08/08/2021 11:3 9 PM CONTRACT LEAD Rule Out COVID-19 12/18/2021 12/18/2021 12/19/2021 11:34 AM CDT Rule Out COVID-19 02/24/2022 02/24/2022 02/25/2022 1:08 PM CDT Rule Out COVID-19 04/26/2022 04/26/2022 04/26/2022 6:47 AM CDT Rule Out COVID-19 05/17/2022 05/17/2022 05/17/2022 10:20 PM CONTRACT LEAD Rule Out COVID-19 06/09/2022 06/09/2022 06/09/2022 9:35 AM CONTRACT LEAD COVID-19 06/09/2022 06/09/2022 06/30/2022 11:4 1 PM CONTRACT LEAD Rule Out COVID-19 11/10/2022 11/10/2022 11/11/2022 12:17 PM CDT Rule Out COVID-19 03/07/2023 03/07/2023 03/07/2023 1:20 PM CDT Rule Out COVID-19 12/26/2023 12/26/2023 12/26/2023 9:50 AM CDT Rule Out COVID-19 04/09/2024 04/09/2024 04/10/2024 6:48 PM CDT Assessment Noted Time PHQ-9 Depression Total Score: 6 08/28/19 7:05 AM CONTRACT LEAD documented as of this encounter Care Teams Wire Stitcher Machine Relationship Specialty Start Date End Date Marija Edgar APRN ORCHARD MANAGER [address] [place] [address] PCP - General Nurse Practitioner 04/30/20 04/14/23 Esha Grimm PA-C [address] [place] [phone] PCP - General Family Medicine 05/04/23 Lita Oseguera Personal Advocate & Liaison (PAL) 02/28/20 03/27/23 Rakesh Cid PA-C [address] [place] [address] Assigned PCP 03/02/20 06/07/20 Chanelle Mccann APRN CNM [address] [place] [address] Assigned OBGYN Provider 05/02/2005/09 Lesley Moody, CHW Community Health Worker 05/30/2005/12 Kyara De La Fuente, RN Specialty Right Of Way Man Neurology 06/04/20 03/05/21 Marija Edgar APRN ORCHARD MANAGER [address] [place] [address] Assigned PCP 06/08/20 04/29/23 Mynor [facility] MD [address] [place] [address] Assigned Surgical Provider 06/01/20 11/28/21 Keisha Dotson MD 909 [place], [place] [address] Assigned Neuroscience Provider 06/04/20 04/01/23 Mary Mejia Financial Resource Worker 08/07/20 08/21/20 Stacey Briones, [facility] Lead Right Of Way Man Primary Care - CC 08/11/2012/30 Lesley Moody, [facility] Community Health Worker 08/11/2010/01 Mary Mejia Financial Resource Worker 09/02/20 10/06/20 Lita Oseguera Personal Advocate & Liaison (PAL) Family Medicine 09/10/20 09/21/20 Galo Burrell MD Assigned Heart and Vascular Provider 10/05/20 04/02/22 Cristina Wood Financial Resource Worker 10/07/20 10/14/20 Lesley Moody, [facility] Community Health Worker 10/23/2012/30 Meredith Bedoya Financial Resource Worker 10/23/20 11/23/20 Cristina Wood Financial Resource Worker 02/09/21 02/09/21 Diana Desir, [facility] [address] [place] [address] Pharmacist Pharmacist 04/17/21 Rain Galaviz PA-C [address] [place] [address] [address] [facility] [place] [address] Physician Reel Worker Dermatology 04/28/21 Summer Lara MD [address] [place], [place] [address] Assigned OBGYN Provider 05/10/2105/23 Summer Lara MD [address] [place], [place] [address] Assigned OBGYN Provider 05/31/21 Summer Lara MD [address] [facility] [address] [place], [place] [address] Assigned OBGYN Provider 05/24/2105/30 Tavia Wyatt MD [address] [place], [place] [address] Dermatology 07/14/21 Johnny Murillo MD [address] [place] [address] Assigned Musculoskeletal Provider 08/30/21 03/17/22 Erica Farrell APRN ORCHARD MANAGER [address] [facility] [address] [place] [address] Nurse Practitioner Cardiovascular Disease 09/09/21 Teresita Bean [facility] [address] [place] [address] Pharmacist Pharmacist 09/24/21 09/29/21 Tavia Wyatt MD [address] [place] [address] Assigned Surgical Provider 11/29/21 05/07/22 Diana Desir, [facility] [address] [place] [address] Assigned MTM Pharmacist 01/02/22 Rich Barrett MD [address] 1610[address] Physician Ophthalmology 01/21/22 Neil Kent MD [address] [place], [place] [address] Dermatology 02/24/22 [place] [address] [facility] [address] [place] [address] Assigned Musculoskeletal Provider 03/20/22 08/13/22 Erica Farrell APRN ORCHARD MANAGER [address] [place] [address] Assigned Heart and Vascular Provider 04/03/22 04/16/22 Diana Desir, [facility] [address] [place] [address] Assigned MTM Pharmacist 04/07/22 Frankie Jelena GarciaSONJA [address] [facility] [address] Assigned Surgical Provider 05/08/22 10/08/22 Galo Burrell MD Assigned Heart and Vascular Provider 04/17/22 06/11/22 Livan Sharif MD [address] [place] [address] Cardiovascular Disease 05/14/22 Livan Sharif MD [address] [place] [address] Assigned Heart and Vascular Provider 06/12/22 07/23/22 Catherine Cm MD [address] [place] [address] Cardiovascular Disease 07/21/22 Valery Veronica, PA-C 9[address] [place] [address] Physician Reel Worker Dermatology 07/21/22 Catherine Cm MD [address] [place] [address] Assigned Heart and Vascular Provider 07/24/22 11/05/22 Johnny Murillo MD [address] [address] Assigned Musculoskeletal Provider 08/14/22 10/08/22 Brea Quinn APRN ORCHARD MANAGER [address] [place] [address] Nurse Practitioner Dermatology 09/21/22 Brea Quinn APRN ORCHARD MANAGER [address] [facility] [place] [address] Assigned Surgical Provider 10/09/22 05/01/24 [place] [address] [address] [facility] [address] [place] [address] Assigned Musculoskeletal Provider 10/09/22 05/01/24 Livan Sharif MD [address] [facility] [address] [place] [address] Assigned Heart and Vascular Provider 11/06/22 11/12/22 Catherine Cm MD [address] [facility] [place] [address] Assigned Heart and Vascular Provider 11/13/22 05/27/23 Sydnie Martinez RN Personal Advocate & Liaison (PAL) Family Medicine 03/28/23 07/31/23 Alfonso Renteria MD [address] [facility] [address] [place] [address] Assigned Neuroscience Provider 04/02/23 Cheng Todd PA-C [address] [place] [address] Assigned PCP 04/30/23 07/15/23 Radha Lomeli APRN ORCHARD MANAGER [address] [facility] [address] [place] [address] Assigned Heart and Vascular Provider 05/28/23 Jelena David OD [address] [place] [address] MD Ophthalmology 06/15/23 Pao Joseph, VJ Personal Advocate & Liaison (PAL) Nurse 08/01/23 11/07/23 Esha Grimm PA-C [address] [place] [phone] Assigned PCP 07/16/23 Valery Veronica PA-C [address] [place] [address] 956725 Physician Reel Worker Dermatology 09/19/23 Rey Tay MD [address] [place] [address] [id number] Gastroenterology 09/20/23 Rocky Zepeda DO [address] [place] [address] [id number] Physician Gastroenterology 09/20/23 Philip Dumont MD [address] [place] [address] Physician Ophthalmology 09/22/23 Meredith Carrera PA-C [address] [place] [address] Assigned Gastroenterology Provider 11/01/23 Neil eKnt MD [address] [address] Dermatology 11/02/23 [place] [address] [place] [address] Neurological Surgery 12/26/23 Audrey Waite PA-C 500 [place] [address] Physician Reel Worker Dermatology 02/28/24 Valery Veronica PA-C 5[address]35 [address], [place] [address] Physician Reel Worker Dermatology 04/10/24 Herminia Hatch MD [facility]5 [place], [place] [address] Assigned Rheumatology Provider 07/02/24 documented as of this encounter
--- OUTSIDE RECORDS SUMMARY | 2024-07-22 20:48 | XMS_ITS | Encounter Summary ---
Author Organization [facility] Address [address] [place] [address] Care Team Providers Care Processing Inspector Name Role Phone Lita Oseguera Unavailable Unavailable Marija Edgar APRN ACCESS DEVELOPER Primary Care Provider + Chanelle Mccann SUPPLIER QUALITY CNM Unavailab le Kyara De La Fuente RN Unavailable [phone] Marija Edgar APRN ACCESS DEVELOPER Unavailable [phone] Mynor Broussard MD Unavailable [phone] Keisha Dotson MD Unavailable Mary Mejia Unavailable Unavailable Stacey Briones SEAT COVER CUTTER Unavailable Lesley Moody CHW Unavailable Mary Mejia Unavailable Unavailable Lita Oseguera Unavailable Unavailable Galo Burrell MD Unavailable Unavailable Cristina Wood Unavailable Lesley Moody CHW Unavailable Meredith Bedoya Unavailable Unavailable Cristina Wood Unavailable Diana Desir [facility] Unavailable Ruhland, Rain Lena PA-C Unavailable Summer Lara MD Unavailable [phone] Summer Lara MD Unavailable [phone] Summer Lara MD Unavailable [phone] Tavia Wyatt MD Unavailable [phone] Johnny Murillo MD Unavailable +1- Erica Farrell SUPPLIER QUALITY ACCESS DEVELOPER Unavailable VikasTeresita H Unavailable Tavia Wyatt MD Unavailable [phone] Diana Desir [facility] Unavailable [phone] Rich Barrett MD Unavailable Neil Kent MD Unavailable Roney Story [facility] Unavailable Erica Farrell APRN ACCESS DEVELOPER Unavailable Diana Desir [facility] Unavailable [phone] Jelena David OD Unavailable Galo Burrell MD Unavailable Unavailable Livan Sharif MD Unavailable Livan Sharif MD Unavailable + Catherine Cm MD Unavailable + Valery Veronica PA-C Unavailable [phone] Catherine Cm MD Unavailable + Johnny Murillo MD Unavailable +1- Brea Quinn SUPPLIER QUALITY ACCESS DEVELOPER Unavailable +[phone] Brea Quinn SUPPLIER QUALITY ACCESS DEVELOPER Unavailable [phone] Jose Francisco Johnson MD Unavailable Livan Sharif MD Unavailable Catherine Cm MD Unavailable + Sydnie Martinez RN Unavailable Unavailable Alfonso Renteria MD Unavailable [phone] Esha Grimm PA-C Primary Care Provider Cheng Todd PA-C Unavailable Radha Lomeli APRN ACCESS DEVELOPER Unavailable FrankieJelena OD Unavailable [phone] Pao Joseph RN Unavailable Unavailable Esha Grimm PA-C Unavailable [phone] Valery Veronica PA-C Unavailable [phone] Rey Tay MD Unavailable Rocky Zepeda DO Unavailable Philip Dumont MD Unavailable Meredith Carrera PA-C Unavailable Neil Kent MD Unavailable Juan Pablo Emmanuel MD Unavailable Audrey Waite PA-C Unavailable [phone] JeremíasValery damon PA-C Unavailable [phone] Herminia Hatch MD Unavailable Encounter Details Date Type Department Care Team (Late st Contact Info) Description 08/01/2020 MyC Medical Advice [facility] [id number] [place] [phone] Marija Edgar APRN ACCESS DEVELOPER [address] [place] [address] Social History Tobacco [...] PM CDT Legal Sex Female 4:13 AM WEBBING INSPECTOR Gender Identity Female 03/02/2021 5:45 PM CDT Sexual Orientation Straight 02/28/2020 12 :51 AM CDT COVID-19 Exposure Response Date Recorded In the last month, have you been in contact with someone who was confirmed or suspected to have Coronavirus / COVID-19? No / Unsure 07/30/2020 4:53 PM WEBBING INSPECTOR documented as of this encounter Miscellaneous Notes * Telephone Encounter - Estephania Black RN - 08/01/2020 9:11 AM WEBBING INSPECTOR Schedule patient for Zio Patch. Detailed message left on phone and through [employer]. Estephania Black RN Flex ING INSPECTOR * Telephone Encounter - Marija Edgar APRN CNP - 08/01/2020 8:46 AM WEBBING INSPECTOR Please help patient schedule her zio patch. This order has been in place since 05/2020 and a new order was placed this week. ING INSPECTOR documented in this encounter Plan of Treatment Upcoming Encounters Date Type Department Care Team (Late st Contact Info) Description 10/23/2024 9:30 AM CDT Office Visit [facility] - [address], [address] [place] [address] [place] [address] [place] [address] Johnny Penn MD [address] [place] [address] 11/28/2024 7:45 AM CDT Virtual Visit [facility] [address] [place] [address] Meredith Carrera PA-C [address] [place] [address] documented as of this encounter Visit Diagnoses Not on filedocumented in this encounter Additional Health Concerns Infection Onset Date Last Indicated Resolved Time Rule Out COVID-19 08/30/2020 08/30/2020 08/30/2020 5:05 PM WEBBING INSPECTOR Rule Out COVID-19 09/24/2020 09/24/2020 09/24/2020 9:24 AM CDT Rule Out COVID-19 11/05/2020 11/05/2020 11/06/2020 1:09 PM CDT Rule Out COVID-19 05/11/2021 05/11/2021 05/13/2021 10:18 AM CDT Rule Out COVID-19 07/13/2021 07/13/2021 07/14/2021 3:04 PM WEBBING INSPECTOR Rule Out COVID-19 07/18/2021 07/18/2021 07/20/2021 1:56 PM WEBBING INSPECTOR COVID-19 07/18/2021 07/18/2021 08/08/2021 11:3 9 PM WEBBING INSPECTOR Rule Out COVID-19 12/18/2021 12/18/2021 12/19/2021 11:34 AM CDT Rule Out COVID-19 02/24/2022 02/24/2022 02/25/2022 1:08 PM CDT Rule Out COVID-19 04/26/2022 04/26/2022 04/26/2022 6:47 AM CDT Rule Out COVID-19 05/17/2022 05/17/2022 05/17/2022 10:20 PM WEBBING INSPECTOR Rule Out COVID-19 06/09/2022 06/09/2022 06/09/2022 9:35 AM WEBBING INSPECTOR COVID-19 06/09/2022 06/09/2022 06/30/2022 11:4 1 PM WEBBING INSPECTOR Rule Out COVID-19 11/10/2022 11/10/2022 11/11/2022 12:17 PM CDT Rule Out COVID-19 03/07/2023 03/07/2023 03/07/2023 1:20 PM CDT Rule Out COVID-19 12/26/2023 12/26/2023 12/26/2023 9:50 AM CDT Rule Out COVID-19 04/09/2024 04/09/2024 04/10/2024 6:48 PM CDT Assessment Noted Time PHQ-9 Depression Total Score: 9 06/25/20 7:04 AM WEBBING INSPECTOR documented as of this encounter Care Teams Processing Inspector Relationship Specialty Start Date End Date Marija Edgar APRN ACCESS DEVELOPER PCP - General Nurse Practitioner 04/30/20 04/14/23 Esha Grimm PA-C [address] [place] [phone] PCP - General Family Medicine 05/04/23 Lita Oseguera Personal Advocate & Liaison (PAL) 02/28/20 03/27/23 Chanelle Mccann APRN CNM [address] [facility] [address] [place] [address] Assigned OBGYN Provider 05/02/2005/09 Kyara De La Fuente, RN Specialty Geological Engineer Neurology 06/04/20 03/05/21 Marija Edgar APRN ACCESS DEVELOPER Assigned PCP 06/08/20 04/29/23 Mynor Broussard MD [address] [facility] [address] [place] [address] Assigned Surgical Provider 06/01/20 11/28/21 Keisha Dotson MD [address] [place] [address] Assigned Neuroscience Provider 06/04/20 04/01/23 Mary Mejia Financial Resource Worker 08/07/20 08/21/20 Stacey Briones, [facility] Lead Geological Engineer Primary Care - CC 08/11/2012/30 Lesley Moody, [facility] Community Health Worker 08/11/2010/01 Mary Mejia Financial Resource Worker 09/02/20 10/06/20 Lita Oseguera Personal Advocate & Liaison (PAL) Family Medicine 09/10/20 09/21/20 Galo Burrell MD Assigned Heart and Vascular Provider 10/05/20 04/02/22 Cristina Wood Financial Resource Worker 10/07/20 10/14/20 Lesley Moody, [facility] Community Health Worker 10/23/2012/30 Meredith Bedoya Financial Resource Worker 10/23/20 11/23/20 Cristina Wood Financial Resource Worker 02/09/21 02/09/21 Diana Desir, [facility] [address] [place] [address] Pharmacist Pharmacist 04/17/21 Rain Galaviz PA-C [address] [place] [address] [place] [address] Physician Medical Dosimetrist Dermatology 04/28/21 Summer Lara MD [address] [place] [address] 258164 Assigned OBGYN Provider 05/10/2105/23 Summer Lara MD [address] [place] [address] 501854 Assigned OBGYN Provider 05/31/21 Summer Lara MD [address] [place] [address] 663204 Assigned OBGYN Provider 05/24/2105/30 Tavia Wyatt MD [address] [place] [address] [phone] Dermatology 07/14/21 Johnny Murillo MD [facility] [facility] [address] [place], [place] 8[address] Assigned Musculoskeletal Provider 08/30/21 03/17/22 Erica Farrell APRN ACCESS DEVELOPER [address] [facility] [address] [place] [address] Nurse Practitioner Cardiovascular Disease 09/09/21 Teresita Bean [facility] [address] [phone] Pharmacist Pharmacist 09/24/21 09/29/21 Tavia Wyatt MD [address] [place], [place] 1707[address] Assigned Surgical Provider 11/29/21 05/07/22 Diana Desir, [facility] [address] [place] [address] Assigned MTM Pharmacist 01/02/22 Rich Barrett MD [address] [phone] Physician Ophthalmology 01/21/22 Neil Kent MD [address] [place], [place] [phone] Dermatology 02/24/22 Roney Story DPM [address] [facility] [address] [place], [place] 838[address] Assigned Musculoskeletal Provider 03/20/22 08/13/22 Erica Farrell APRN ACCESS DEVELOPER [address] [place] [address] Assigned Heart and Vascular Provider 04/03/22 04/16/22 Diana Desir, [facility] [address] [place] [address] Assigned MTM Pharmacist 04/07/22 Jelena David OD [address] [facility] [place] [address] Assigned Surgical Provider 05/08/22 10/08/22 Galo Burrell MD Assigned Heart and Vascular Provider 04/17/22 06/11/22 Livan Sharif MD [address] [place] [address] Cardiovascular Disease 05/14/22 Livan Sahrif MD [address] [place] [address] Assigned Heart and Vascular Provider 06/12/22 07/23/22 Catherine Cm MD [address] [place] [address] Cardiovascular Disease 07/21/22 Valery Veronica, PA-C [address] [place] [address] [phone] Physician Medical Dosimetrist Dermatology 07/21/22 Catherine Cm MD [address] [place] [address] Assigned Heart and Vascular Provider 07/24/22 11/05/22 Johnny Murillo MD [facility] [phone] Assigned Musculoskeletal Provider 08/14/22 10/08/22 Brea Quinn APRN ACCESS DEVELOPER [address] [place] [address] [phone] Nurse Practitioner Dermatology 09/21/22 Brea Quinn APRN ACCESS DEVELOPER [address] [place] [address] [place] 200482 Assigned Surgical Provider 10/09/22 05/01/24 [place] [address] [place] [address] Assigned Musculoskeletal Provider 10/09/22 05/01/24 Livan Sharif MD [address] [place] [address] Assigned Heart and Vascular Provider 11/06/22 11/12/22 Catherine Cm MD [address] [place] [address] Assigned Heart and Vascular Provider 11/13/22 05/27/23 Sydnie Martinez RN Personal Advocate & Liaison (PAL) Family Medicine 03/28/23 07/31/23 Alfonso Renteria MD [address] [facility] 200 [place], [place] 695036 Assigned Neuroscience Provider 04/02/23 Cheng Todd PA-C [address] [place] [address] [phone] Assigned PCP 04/30/23 07/15/23 Radha Lomeli, SUPPLIER QUALITY ACCESS DEVELOPER [address] [place] [address] Assigned Heart and Vascular Provider 05/28/23 Jelena David OD [address] [facility] [place] [address] Ophthalmology 06/15/23 Pao Joseph, VJ Personal Advocate & Liaison (PAL) Nurse 08/01/23 11/07/23 Esha Grimm PA-C [address] [place] [phone] Assigned PCP 07/16/23 Valery Veronica PA-C [address] [place] [address] 029755 Physician Medical Dosimetrist Dermatology 09/19/23 Rey Tay MD [address] [place] [address] 990405 MD Gastroenterology 09/20/23 Rocky Zepeda DO [address] [place] [address] [phone] Physician Gastroenterology 09/20/23 Philip Dumont MD [address] [place] [address] 548285 Physician Ophthalmology 09/22/23 Meredith Carrera PA-C [address] [place] [address] [phone] Assigned Gastroenterology Provider 11/01/23 Neil Kent MD [address] [address] Dermatology 11/02/23 [place] [address] [place] [place] [address] Neurological Surgery 12/26/23 Audrey Waite PA-C [address] [place] [address] Physician Medical Dosimetrist Dermatology 02/28/24 Valery Veronica PA-C [address] [place] [address] Physician Medical Dosimetrist Dermatology 04/10/24 Herminia Hatch MD [address] [place] [address] Assigned Rheumatology Provider 07/02/24 documented as of this encounter
--- OUTSIDE RECORDS SUMMARY | 2024-07-22 20:48 | XMS_ITS | Encounter Summary ---
Author Organization [place] Address [address] [place] [address] Care Team Providers Care Exceptional Student Education Teacher Name Role Phone Lita Oseguera Unavailable Unavailable Marija Edgar APRN [employer] Primary Care Provider + Chanelle Mccann HAIR MACHINE OPERATOR CNM Unavailab le Kyara De La Fuente RN Unavailable [phone] Marija Edgar APRN [employer] Unavailable [phone] Mynor Broussard MD Unavailable [phone] Keisha Dotson MD Unavailable Mary Mejia Unavailable Unavailable Stacey Briones SUPPLY COORDINATOR Unavailable Lesley Moody CHW Unavailable Mary Mejia Unavailable Unavailable Lita Oseguera Unavailable Unavailable Galo Burrell MD Unavailable Unavailable Cristina Wood Unavailable Lesley Moody CHW Unavailable Meredith Bedoya Unavailable Unavailable Cristina Wood Unavailable Diana Desir [facility] Unavailable Ruhland, Rain Lena PA-C Unavailable Summer Lara MD Unavailable [phone] Summer Lara MD Unavailable [phone] Summer Lara MD Unavailable [phone] Tavia Wyatt MD Unavailable [phone] Johnny Murillo MD Unavailable +[phone]- Erica Farrell HAIR MACHINE OPERATOR [employer] Unavailable VikasTeresita H Unavailable Tavia Wyatt MD Unavailable [phone] Diana Desir [facility] Unavailable [phone] Rich Barrett MD Unavailable Neil Kent MD Unavailable Roney Story [facility] Unavailable Erica Farrell APRN [employer] Unavailable Diana Desir [facility] Unavailable [phone] Jelena David OD Unavailable Galo Burrell MD Unavailable Unavailable Livan Sharif MD Unavailable Livan Sharif MD Unavailable + Catherine Cm MD Unavailable + Valery Veronica PA-C Unavailable [phone] Catherine Cm MD Unavailable + Johnny Murillo MD Unavailable +1- Brea Quinn HAIR MACHINE OPERATOR [employer] Unavailable [phone] Brea Quinn HAIR MACHINE OPERATOR [employer] Unavailable [phone] Jose Francisco Johnson MD Unavailable Livan Sharif MD Unavailable Catherine Cm MD Unavailable + Sydnie Martinez RN Unavailable Unavailable Alfonso Renteria MD Unavailable [phone] Esha Grimm PA-C Primary Care Provider Cheng Todd PA-C Unavailable ArmaniRadha APRN [employer] Unavailable Jelena David OD Unavailable Pao Joseph RN Unavailable Unavailable Esha Grimm PA-C Unavailable Valery Veronica PA-C Unavailable Rey Tay MD Unavailable Rocky Zepeda DO Unavailable Philip Dumont MD Unavailable Meredith Carrera PA-C Unavailable Neil Kent MD Unavailable Juan Pablo Emmanuel MD Unavailable Audrey Waite PA-C Unavailable [phone] JeremíasValery damon PA-C Unavailable [phone] Herminia Hatch MD Unavailable Encounter Details Date Type Department Care Team (Late st Contact Info) Description 07/29/2020 MyC Medical Advice [facility] [address], [address] [place] [address] Keisha Dotson MD [address] [place] [address] Social History Tobacco Use Types [...] PM CDT Legal Sex Female 4:13 AM MOTOR POWER CONNECTOR Gender Identity Female 03/02/2021 5:45 PM CDT Sexual Orientation Straight 02/28/2020 12 :51 AM CDT COVID-19 Exposure Response Date Recorded In the last month, have you been in contact with someone who was confirmed or suspected to have Coronavirus / COVID-19? No / Unsure 07/30/2020 4:53 PM MOTOR POWER CONNECTOR documented as of this encounter Plan of Treatment Upcoming Encounters Date Type Department Care Team (Late st Contact Info) Description 10/23/2024 9:30 AM CDT Office Visit [facility] [address], [address] [place] [phone] [place] [address] [id number] Johnny Penn MD [address] [place], [place] [address] 11/28/2024 7:45 AM CDT Virtual Visit [facility] [address] [place] [address] Meredith Carrera PA-C [address] [place] [id number] documented as of this encounter Visit Diagnoses Not on filedocumented in this encounter Additional Health Concerns Infection Onset Date Last Indicated Resolved Time Rule Out COVID-19 07/30/2020 07/30/2020 07/30/2020 7:11 PM MOTOR POWER CONNECTOR Rule Out COVID-19 08/30/2020 08/30/2020 08/30/2020 5:05 PM MOTOR POWER CONNECTOR Rule Out COVID-19 09/24/2020 09/24/2020 09/24/2020 9:24 AM CDT Rule Out COVID-19 11/05/2020 11/05/2020 11/06/2020 1:09 PM CDT Rule Out COVID-19 05/11/2021 05/11/2021 05/13/2021 10:18 AM CDT Rule Out COVID-19 07/13/2021 07/13/2021 07/14/2021 3:04 PM MOTOR POWER CONNECTOR Rule Out COVID-19 07/18/2021 07/18/2021 07/20/2021 1:56 PM MOTOR POWER CONNECTOR COVID-19 07/18/2021 07/18/2021 08/08/2021 11:3 9 PM MOTOR POWER CONNECTOR Rule Out COVID-19 12/18/2021 12/18/2021 12/19/2021 11:34 AM CDT Rule Out COVID-19 02/24/2022 02/24/2022 02/25/2022 1:08 PM CDT Rule Out COVID-19 04/26/2022 04/26/2022 04/26/2022 6:47 AM CDT Rule Out COVID-19 05/17/2022 05/17/2022 05/17/2022 10:20 PM MOTOR POWER CONNECTOR Rule Out COVID-19 06/09/2022 06/09/2022 06/09/2022 9:35 AM MOTOR POWER CONNECTOR COVID-19 06/09/2022 06/09/2022 06/30/2022 11:4 1 PM MOTOR POWER CONNECTOR Rule Out COVID-19 11/10/2022 11/10/2022 11/11/2022 12:17 PM CDT Rule Out COVID-19 03/07/2023 03/07/2023 03/07/2023 1:20 PM CDT Rule Out COVID-19 12/26/2023 12/26/2023 12/26/2023 9:50 AM CDT Rule Out COVID-19 04/09/2024 04/09/2024 04/10/2024 6:48 PM CDT Assessment Noted Time PHQ-9 Depression Total Score: 9 06/25/20 20 7:04 AM MOTOR POWER CONNECTOR documented as of this encounter Care Teams Exceptional Student Education Teacher Relationship Specialty Start Date End Date Marija Edgar APRN [employer] PCP - General Nurse Practitioner 04/30/20 04/14/23 Esha Grimm PA-C [address] [place] [phone] PCP - General Family Medicine 05/04/23 Lita Oseguera Personal Advocate & Liaison (PAL) 02/28/20 03/27/23 Chanelle Mccann APRN CNAdam [address] [address] [address] [place] [address] Assigned OBGYN Provider 05/02/2005/09 Kyara De La Fuente, RN Specialty Child Development Associate Teacher Neurology 06/04/20 03/05/21 Marija Edgar APRN [employer] Assigned PCP 06/08/20 04/29/23 Mynor Broussard MD [address] [facility] 500 [place] [address] Assigned Surgical Provider 06/01/20 11/28/21 Keisha Dotson MD [address] [place], [place] 49[address] Assigned Neuroscience Provider 06/04/20 04/01/23 Mary Mejia Financial Resource Worker 08/07/20 08/21/20 Stacey Briones, SUPPLY COORDINATOR Lead Child Development Associate Teacher Primary Care - CC 08/11/2012/30 Lesley Moody, [facility] Community Health Worker 08/11/2010/01 NikiatimothyMary Financial Resource Worker 09/02/20 10/06/20 Lita Oseguera Personal Advocate & Liaison (PAL) Family Medicine 09/10/20 09/21/20 Galo Burrell MD Assigned Heart and Vascular Provider 10/05/20 04/02/22 Cristina Wood Financial Resource Worker 10/07/20 10/14/20 Lesley Moody, [facility] Community Health Worker 10/23/2012/30 Meredith Bedoya Financial Resource Worker 10/23/20 11/23/20 Cristina Wood Financial Resource Worker 02/09/21 02/09/21 Diana Desir, [facility] [address] [place] [address] Pharmacist Pharmacist 04/17/21 Rain Galaviz PA-C [address] [place] [address] [address] [place], [place] [phone] Physician Senior Technical Editor Dermatology 04/28/21 Summer Lara MD [address] [place] [address] [id number] Assigned OBGYN Provider 05/10/2105/23 Summer Lara MD [address] [place] [address] [phone] Assigned OBGYN Provider 05/31/21 2 Summer Lara MD [address] [place] [address] Assigned OBGYN Provider 05/24/2105/30 Tavia Wyatt MD [address] [place] [address] Dermatology 07/14/21 Johnny Murillo MD [address] [place] [address] Assigned Musculoskeletal Provider 08/30/21 03/17/22 Erica Farrell APRN [employer] [address] [facility] [address] [place], [place] [phone] Nurse Practitioner Cardiovascular Disease 09/09/21 [facility] [address] [place] [place] [phone] Pharmacist Pharmacist 09/24/21 09/29/21 Tavia Wyatt MD [address] [place] [address] Assigned Surgical Provider 11/29/21 05/07/22 [facility] [address] [place] [address] Assigned MTM Pharmacist 01/02/22 Rich Barrett MD [address] [facility] [address] [place] [address] Physician Ophthalmology 01/21/22 Neil Kent MD [address] [place] [address] Dermatology 02/24/22 Roney Story DPM [address] [facility] [address] [place] [address] Assigned Musculoskeletal Provider 03/20/22 08/13/22 Erica Farrell APRN [employer] [address] [place] [address] Assigned Heart and Vascular Provider 04/03/22 04/16/22 Diana Desir, [facility] [address] [place] [address] Assigned MTM Pharmacist 04/07/22 Jelena David [place] [address] [facility] [place] [address] Assigned Surgical Provider 05/08/22 10/08/22 Galo Burrell MD Assigned Heart and Vascular Provider 04/17/22 06/11/22 Livan Sharif MD [address] [place] [address] Cardiovascular Disease 05/14/22 Livan Sharif MD [address] [place] [address] Assigned Heart and Vascular Provider 06/12/22 07/23/22 Catherine Cm MD [address] [place] 665965 Cardiovascular Disease 07/21/22 Valery Veronica, PAUcheC [address] [place], [place] [address] Physician Senior Technical Editor Dermatology 07/21/22 Catherine Cm MD [address] [place] [address] Assigned Heart and Vascular Provider 07/24/22 11/05/22 Johnny Murillo MD [address] [place] [address] Assigned Musculoskeletal Provider 08/14/22 10/08/22 Brea Quinn APRN [employer] [address] [place] [address] Nurse Practitioner Dermatology 09/21/22 Brea Quinn APRN [employer] [address] [place] [address] Assigned Surgical Provider 10/09/22 05/01/24 [place] [address] [address] Assigned Musculoskeletal Provider 10/09/22 05/01/24 Livan Sharif MD [address] [place] [address] Assigned Heart and Vascular Provider 11/06/22 11/12/22 Catherine Cm MD [address] [place] [address] Assigned Heart and Vascular Provider 11/13/22 05/27/23 Sydnie Martinez RN Personal Advocate & Liaison (PAL) Family Medicine 03/28/23 07/31/23 Alfonso Renteria MD [address] [facility] [address] [place] [address] Assigned Neuroscience Provider 04/02/23 Cheng Todd PA-C [address] [place] [address] [phone] Assigned PCP 04/30/23 07/15/23 Radha Lomeli APRN [employer] [address] [place] [address] Assigned Heart and Vascular Provider 05/28/23 Jelena David OD [address] [facility] [place] [address] Ophthalmology 06/15/23 Pao Joseph, VJ Personal Advocate & Liaison (PAL) Nurse 08/01/23 11/07/23 Esha Grimm PA-C [address] [place] [phone] Assigned PCP 07/16/23 Valery Veronica PA-C [address] [place] [address] Physician Senior Technical Editor Dermatology 09/19/23 Rey Tay MD [address] [place] [address] Gastroenterology 09/20/23 Rocky Zepeda DO [address] [place] [address] Physician Gastroenterology 09/20/23 Philip Dumont MD [address] [place] [address] Physician Ophthalmology 09/22/23 Meredith Carrera PA-C [address] [place] [address] Assigned Gastroenterology Provider 11/01/23 Neil Kent MD [address] [address] MD Dermatology 11/02/23 [place] [address] [address] Neurological Surgery 12/26/23 Audrey Waite PA-C [address] [place] [address] Physician Senior Technical Editor Dermatology 02/28/24 Valery Veronica PA-C 358178 [address], [place] [address] Physician Senior Technical Editor Dermatology 04/10/24 Herminia Hatch MD [facility]5 [place], [place] [id number] Assigned Rheumatology Provider 07/02/24 documented as of this encounter
--- OUTSIDE RECORDS SUMMARY | 2024-07-22 20:48 | XMS_ITS | Encounter Summary ---
Author Organization [place] Address [address] [place] [address] Care Team Providers Care Digital Solutions Architect Name Role Phone Lita Oseguera Unavailable Unavailable Marija Edgar APRN BEHAVIORAL HEALTH ASSISTANT Primary Care Provider + Chanelle Mccann COMMERCIAL CREDIT HEAD CNM Unavailab le Kyara De La Fuente RN Unavailable Marija Edgar APRN BEHAVIORAL HEALTH ASSISTANT Unavailable Mynor Broussard MD Unavailable [phone] Keisha Dotson MD Unavailable Mary Mejia Unavailable Unavailable Stacey Briones HAND CANDY CUTTER Unavailable [phone] Lesley Moody CHW Unavailable Mary Mejia Unavailable Unavailable Lita Oseguera Unavailable Unavailable Galo Burrell MD Unavailable Unavailable Cristina Wood Unavailable Lesley Moody CHW Unavailable Meredith Bedoya Unavailable Unavailable Cristina Wood Unavailable Diana Desir [facility] Unavailable [phone] Ruhland, Rain Lena PA-C Unavailable Summer Lara MD Unavailable [phone] Summer Lara MD Unavailable [phone] Summer Lara MD Unavailable [phone] Tavia Wyatt MD Unavailable [phone] Johnny Murillo MD Unavailable +1- Erica Farrell COMMERCIAL CREDIT HEAD BEHAVIORAL HEALTH ASSISTANT Unavailable VikasTeresita H Unavailable Tavia Wyatt MD Unavailable [phone] Diana Desir [facility] Unavailable [phone] Rich Barrett MD Unavailable Neil Kent MD Unavailable Roney Story [facility] Unavailable Erica Farrell APRN BEHAVIORAL HEALTH ASSISTANT Unavailable Diana Desir [facility] Unavailable [phone] Jelena David OD Unavailable Galo Burrell MD Unavailable Unavailable Livan Sharif MD Unavailable Livan Sharif MD Unavailable + Catherine Cm MD Unavailable + Valery Veronica PA-C Unavailable [phone] Catherine Cm MD Unavailable + Johnny Murillo MD Unavailable +1- Brea Quinn COMMERCIAL CREDIT HEAD BEHAVIORAL HEALTH ASSISTANT Unavailable +[phone] Brea Quinn COMMERCIAL CREDIT HEAD BEHAVIORAL HEALTH ASSISTANT Unavailable [phone] Jose Francisco Johnson MD Unavailable Livan Sharif MD Unavailable Catherine Cm MD Unavailable + Sydnie Martinez RN Unavailable Unavailable Alfonso Renteria MD Unavailable [phone] Esha Grimm PA-C Primary Care Provider Cheng Todd PA-C Unavailable ArmaniRadha APRN BEHAVIORAL HEALTH ASSISTANT Unavailable Jelena David OD Unavailable Pao Joseph RN Unavailable Unavailable Esha Grimm PA-C Unavailable [phone] Valery Veronica PA-C Unavailable Rey Tay MD Unavailable Rocky Zepeda DO Unavailable Philip Dumont MD Unavailable Meredith Carrera PA-C Unavailable Neil Kent MD Unavailable Juan Pablo Emmanuel MD Unavailable Audrey Waite PA-C Unavailable JeremíasValery damon PA-C Unavailable Herminia Hatch MD Unavailable Encounter Details Date Type Department Care Team (Late st Contact Info) Description 07/10/2020 MyC Medical Advice [facility] [place] [address] [place] [address] Mynor Broussard MD [address] [place] [address] Social History Tobacco Use [...] PM CDT Legal Sex Female 4:13 AM GRINDING MILL OPERATOR Gender Identity Female 03/02/2021 5:45 PM CDT Sexual Orientation Straight 02/28/2020 12 :51 AM CDT COVID-19 Exposure Response Date Recorded In the last month, have you been in contact with someone who was confirmed or suspected to have Coronavirus / COVID-19? No / Unsure 06/24/2020 3:01 PM GRINDING MILL OPERATOR documented as of this encounter Plan of Treatment Upcoming Encounters Date Type Department Care Team (Late st Contact Info) Description 10/23/2024 9:30 AM CDT Office Visit [facility] Neu[facility] [address], [address] [place] [phone] [place] [address] [address] Johnny Penn MD 0653 [place], [place] [address] 11/28/2024 7:45 AM CDT Virtual Visit [facility] [address] [address] Meredith Carrera PA-C [address] [place] [address] 997185 documented as of this encounter Visit Diagnoses Not on filedocumented in this encounter Additional Health Concerns Infection Onset Date Last Indicated Resolved Time Rule Out COVID-19 07/30/2020 07/30/2020 07/30/2020 7:11 PM GRINDING MILL OPERATOR Rule Out COVID-19 08/30/2020 08/30/2020 08/30/2020 5:05 PM GRINDING MILL OPERATOR Rule Out COVID-19 09/24/2020 09/24/2020 09/24/2020 9:24 AM CDT Rule Out COVID-19 11/05/2020 11/05/2020 11/06/2020 1:09 PM CDT Rule Out COVID-19 05/11/2021 05/11/2021 05/13/2021 10:18 AM CDT Rule Out COVID-19 07/13/2021 07/13/2021 07/14/2021 3:04 PM GRINDING MILL OPERATOR Rule Out COVID-19 07/18/2021 07/18/2021 07/20/2021 1:56 PM GRINDING MILL OPERATOR COVID-19 07/18/2021 07/18/2021 08/08/2021 11:3 9 PM GRINDING MILL OPERATOR Rule Out COVID-19 12/18/2021 12/18/2021 12/19/2021 11:34 AM CDT Rule Out COVID-19 02/24/2022 02/24/2022 02/25/2022 1:08 PM CDT Rule Out COVID-19 04/26/2022 04/26/2022 04/26/2022 6:47 AM CDT Rule Out COVID-19 05/17/2022 05/17/2022 05/17/2022 10:20 PM GRINDING MILL OPERATOR Rule Out COVID-19 06/09/2022 06/09/2022 06/09/2022 9:35 AM GRINDING MILL OPERATOR COVID-19 06/09/2022 06/09/2022 06/30/2022 11:4 1 PM GRINDING MILL OPERATOR Rule Out COVID-19 11/10/2022 11/10/2022 11/11/2022 12:17 PM CDT Rule Out COVID-19 03/07/2023 03/07/2023 03/07/2023 1:20 PM CDT Rule Out COVID-19 12/26/2023 12/26/2023 12/26/2023 9:50 AM CDT Rule Out COVID-19 04/09/2024 04/09/2024 04/10/2024 6:48 PM CDT Assessment Noted Time PHQ-9 Depression Total Score: 9 06/25/20 20 7:04 AM GRINDING MILL OPERATOR documented as of this encounter Care Teams Digital Solutions Architect Relationship Specialty Start Date End Date Marija Edgar APRN BEHAVIORAL HEALTH ASSISTANT PCP - General Nurse Practitioner 04/30/20 04/14/23 Esha Grimm PA-C [address] [place] [address] PCP - General Family Medicine 05/04/23 Lita Oseguera Personal Advocate & Liaison (PAL) 02/28/20 03/27/23 Chanelle Mccann APRN CNAdam [address] [facility] 200 [place] [address] Assigned OBGYN Provider 05/02/2005/09 Kyara De La Fuente, RN Specialty Endocrinology Nurse Neurology 06/04/20 03/05/21 Marija Edgar APRN BEHAVIORAL HEALTH ASSISTANT Assigned PCP 06/08/20 04/29/23 Mynor Broussard MD 6363 [facility] 500 [place] [address] Assigned Surgical Provider 06/01/20 11/28/21 Keisha Dotson MD 909 [place], [place] 149465 Assigned Neuroscience Provider 06/04/20 04/01/23 Mary Mejia Financial Resource Worker 08/07/20 08/21/20 Stacey Briones, HAND CANDY CUTTER Lead Endocrinology Nurse Primary Care - CC 08/11/2012/30 Lesley Moody, [facility] Community Health Worker 08/11/2010/01 NikiatimothyMary Financial Resource Worker 09/02/20 10/06/20 Lita Oseguera Personal Advocate & Liaison (PAL) Family Medicine 09/10/20 09/21/20 Galo Burrell MD Assigned Heart and Vascular Provider 10/05/20 04/02/22 Cristina Wood Financial Resource Worker 10/07/20 10/14/20 Lesley Moody, [facility] Community Health Worker 10/23/2012/30 Meredith Bedoya Financial Resource Worker 10/23/20 11/23/20 Cristina Wood Financial Resource Worker 02/09/21 02/09/21 Diana Desir, [facility] [address] [place] [address] Pharmacist Pharmacist 04/17/21 Rain Galaviz PA-C [address] [place] [address] [address] ARRI[address] [place], [place] [phone] Physician Durable Medical Equipment Repairer Dermatology 04/28/21 Summer Lara MD [address] [place] [address] 556114 Assigned OBGYN Provider 05/10/2105/23 Summer Lara MD [address] [place] [address] [id number] Assigned OBGYN Provider 05/31/21 2 Summer Lara MD [address] [place] [address] Assigned OBGYN Provider 05/24/2105/30 Tavia Wyatt MD [address] [place] [address] Dermatology 07/14/21 Johnny Murillo MD [address] [place] [address] Assigned Musculoskeletal Provider 08/30/21 03/17/22 Erica Farrell APRN BEHAVIORAL HEALTH ASSISTANT [address] [facility] [address] [place], [place] 328[address] Nurse Practitioner Cardiovascular Disease 09/09/21 [facility] [address] [place], [place] [phone] Pharmacist Pharmacist 09/24/21 09/29/21 Tavia Wyatt MD [address] [place] [address] Assigned Surgical Provider 11/29/21 05/07/22 [facility] [address] [place] [address] Assigned MTM Pharmacist 01/02/22 Rich Barrett MD 516 [facility] [address] [place] [address] Physician Ophthalmology 01/21/22 Neil Kent MD 500 [place] [address] Dermatology 02/24/22 [place] [address] [facility] [address] [place] [address] Assigned Musculoskeletal Provider 03/20/22 08/13/22 Erica Farrell APRN BEHAVIORAL HEALTH ASSISTANT 1700 [place] [address] Assigned Heart and Vascular Provider 04/03/22 04/16/22 Diana Desir, [facility] 3033 [place] [address] Assigned MTM Pharmacist 04/07/22 Jelena David OD [address] [facility] [place] [address] Assigned Surgical Provider 05/08/22 10/08/22 Galo Burrell MD Assigned Heart and Vascular Provider 04/17/22 06/11/22 Livan Sharif MD [address] [place] [address] Cardiovascular Disease 05/14/22 Livan Sharif MD [address] [place] [address] Assigned Heart and Vascular Provider 06/12/22 07/23/22 Catherine Cm MD [address] [place] 664895 Cardiovascular Disease 07/21/22 Valery Veronica, PAUcheC [address] [place], [place] 125175 Physician Durable Medical Equipment Repairer Dermatology 07/21/22 Catherine Cm MD [address] [place] [address] Assigned Heart and Vascular Provider 07/24/22 11/05/22 Johnny Murillo MD [address] [place] [address] Assigned Musculoskeletal Provider 08/14/22 10/08/22 Brea Quinn APRN BEHAVIORAL HEALTH ASSISTANT [address] [place] [address] Nurse Practitioner Dermatology 09/21/22 Brea Quinn APRN BEHAVIORAL HEALTH ASSISTANT [address] [place] [address] Assigned Surgical Provider 10/09/22 05/01/24 [place] [address] [address] Assigned Musculoskeletal Provider 10/09/22 05/01/24 Livan Sharif MD [address] [place] [address] Assigned Heart and Vascular Provider 11/06/22 11/12/22 Catherine Cm MD [address] [place] [address] Assigned Heart and Vascular Provider 11/13/22 05/27/23 Sydnie [place] RN Personal Advocate & Liaison (PAL) Family Medicine 03/28/23 07/31/23 Alfonso Renteria MD 5775 [facility] [address] 200 [place] [address] Assigned Neuroscience Provider 04/02/23 Cheng Todd PA-C [address] [place] [address] [phone] Assigned PCP 04/30/23 07/15/23 Radha Lomeli APRN BEHAVIORAL HEALTH ASSISTANT [address] [place] [address] Assigned Heart and Vascular Provider 05/28/23 Jelena David OD [address] [facility] [place] [address] Ophthalmology 06/15/23 Pao Joseph, VJ Personal Advocate & Liaison (PAL) Nurse 08/01/23 11/07/23 Esha Grimm PA-C [address] [place] [phone] Assigned PCP 07/16/23 Valery Veronica PA-C [address] [place] [address] Physician Durable Medical Equipment Repairer Dermatology 09/19/23 Rey Tay MD [address] [place] [address] Gastroenterology 09/20/23 Rocky Zepeda DO 500 [place] [address] Physician Gastroenterology 09/20/23 Philip Dumont MD 6 [place] [address] Physician Ophthalmology 09/22/23 Meredith Carrera PA-C 909 [place] [address] Assigned Gastroenterology Provider 11/01/23 Neil Kent MD [address] [address] MD Dermatology 11/02/23 [place] [address] [address] Neurological Surgery 12/26/23 Audrey Waite PA-C 500 [place] [address] Physician Durable Medical Equipment Repairer Dermatology 02/28/24 Valery Veronica PA-C 952418 [address], [place] [address] Physician Durable Medical Equipment Repairer Dermatology 04/10/24 Herminia Hatch MD [facility]5 [place], [place] [address] Assigned Rheumatology Provider 07/02/24 documented as of this encounter
--- OUTSIDE RECORDS SUMMARY | 2024-07-22 20:48 | XMS_ITS | Encounter Summary ---
Author Organization [place] Address [address] [place] [address] Care Team Providers Care Cap Maker Name Role Phone Lita Oseguera Unavailable Unavailable Marija Edgar APRN ENTERTAINMENT & MEDIA CORRESPONDENT Primary Care Provider + Chanelle Mccann WIRE ANNEALER CNM Unavailab le Kyara De La Fuente RN Unavailable [phone] Marija Edgar APRN ENTERTAINMENT & MEDIA CORRESPONDENT Unavailable Mynor Broussard MD Unavailable [phone] Keisha Dotson MD Unavailable Mary Mejia Unavailable Unavailable Stacey Briones DRAMATIC ARTS HISTORIAN Unavailable [phone] Lesley Moody CHW Unavailable [phone] Mary Mejia Unavailable Unavailable Lita Oseguera Unavailable Unavailable aGlo Burrell MD Unavailable Unavailable Cristina Wood Unavailable Lesley Moody CHW Unavailable [phone] Meredith Bedoya Unavailable Unavailable Cristina Wood Unavailable Diana Desir [facility] Unavailable [phone] Ruhland, Rain Lena PA-C Unavailable Summer Lara MD Unavailable [phone] Summer Lara MD Unavailable [phone] Summer Lara MD Unavailable [phone] Tavia Wyatt MD Unavailable [phone] Johnny Murillo MD Unavailable +1- Erica Farrell WIRE ANNEALER ENTERTAINMENT & MEDIA CORRESPONDENT Unavailable VikasTeresita H Unavailable Tavia Wyatt MD Unavailable [phone] Diana Desir [facility] Unavailable [phone] Rich Barrett MD Unavailable Neil Kent MD Unavailable Roney Story [facility] Unavailable Erica Farrell APRN ENTERTAINMENT & MEDIA CORRESPONDENT Unavailable Diana Desir [facility] Unavailable [phone] Jelena David OD Unavailable Galo Burrell MD Unavailable Unavailable Livan Sharif MD Unavailable Livan Sharif MD Unavailable + Catherine Cm MD Unavailable + Valery Veronica PA-C Unavailable [phone] Catherine Cm MD Unavailable + Johnny Murillo MD Unavailable +1- Brea Quinn WIRE ANNEALER ENTERTAINMENT & MEDIA CORRESPONDENT Unavailable +[phone] Brea Quinn WIRE ANNEALER ENTERTAINMENT & MEDIA CORRESPONDENT Unavailable [phone] Jose Francisco Johnson MD Unavailable Livan Sharif MD Unavailable Catherine Cm MD Unavailable + Sydnie [place] RN Unavailable Unavailable Alfonso Renteria MD Unavailable [phone] Esha Grimm PA-C Primary Care Provider Cheng Todd PA-C Unavailable ArmaniRadha APRN ENTERTAINMENT & MEDIA CORRESPONDENT Unavailable Jelena David OD Unavailable Pao Joseph RN Unavailable Unavailable Esha Grimm PA-C Unavailable [phone] Valery Veronica PA-C Unavailable Rey Tay MD Unavailable Rocky Zepeda DO Unavailable Philip Dumont MD Unavailable Meredith Carrera PA-C Unavailable Neil Kent MD Unavailable Juan Pablo Emmanuel MD Unavailable Audrey Waite PA-C Unavailable [phone] JeremíasValery damon PA-C Unavailable [phone] Herminia Hatch MD Unavailable Encounter Details Date Type Department Care Team (Late st Contact Info) Description 07/17/2020 MyC Medical Advice [facility] Ep[facility] Care [address], [address] [place] [address] Keisha Dotson MD 9 [place] [address] Social History Tobacco Use Types [...] PM CDT Legal Sex Female 4:13 AM TUGBOAT OPERATOR Gender Identity Female 03/02/2021 5:45 PM CDT Sexual Orientation Straight 02/28/2020 12 :51 AM CDT COVID-19 Exposure Response Date Recorded In the last month, have you been in contact with someone who was confirmed or suspected to have Coronavirus / COVID-19? No / Unsure 06/24/2020 3:01 PM TUGBOAT OPERATOR documented as of this encounter Miscellaneous Notes * Telephone Encounter - Kyara De La Fuente RN - 07/23/2020 1:41 PM CST Patient contacted the office by [place] to report intolerability of levetiracetam. She stayed [...] her shewouldn't need medication her whole life. OAT OPERATOR documented in this encounter Plan of Treatment Upcoming Encounters Date Type Department Care Team (Late st Contact Info) Description 10/23/2024 9:30 AM CDT Office Visit [facility] Neurology [facility] - [address], [address] [place] [address] [place] [address] [place] [address] Johnny Penn MD [address] [place], [place] 2608[address] 11/28/2024 7:45 AM CDT Virtual Visit [facility] G[facility]enterology Clinic [address] 4th [place] [address] Meredith Carrera PA-C [address] [place] [address] 148025 documented as of this encounter Visit Diagnoses Not on filedocumented in this encounter Additional Health Concerns Infection Onset Date Last Indicated Resolved Time Rule Out COVID-19 07/30/2020 07/30/2020 07/30/2020 7:11 PM TUGBOAT OPERATOR Rule Out COVID-19 08/30/2020 08/30/2020 08/30/2020 5:05 PM TUGBOAT OPERATOR Rule Out COVID-19 09/24/2020 09/24/2020 09/24/2020 9:24 AM CDT Rule Out COVID-19 11/05/2020 11/05/2020 11/06/2020 1:09 PM CDT Rule Out COVID-19 05/11/2021 05/11/2021 05/13/2021 10:18 AM CDT Rule Out COVID-19 07/13/2021 07/13/2021 07/14/2021 3:04 PM TUGBOAT OPERATOR Rule Out COVID-19 07/18/2021 07/18/2021 07/20/2021 1:56 PM TUGBOAT OPERATOR COVID-19 07/18/2021 07/18/2021 08/08/2021 11:3 9 PM TUGBOAT OPERATOR Rule Out COVID-19 12/18/2021 12/18/2021 12/19/2021 11:34 AM CDT Rule Out COVID-19 02/24/2022 02/24/2022 02/25/2022 1:08 PM CDT Rule Out COVID-19 04/26/2022 04/26/2022 04/26/2022 6:47 AM CDT Rule Out COVID-19 05/17/2022 05/17/2022 05/17/2022 10:20 PM TUGBOAT OPERATOR Rule Out COVID-19 06/09/2022 06/09/2022 06/09/2022 9:35 AM TUGBOAT OPERATOR COVID-19 06/09/2022 06/09/2022 06/30/2022 11:4 1 PM TUGBOAT OPERATOR Rule Out COVID-19 11/10/2022 11/10/2022 11/11/2022 12:17 PM CDT Rule Out COVID-19 03/07/2023 03/07/2023 03/07/2023 1:20 PM CDT Rule Out COVID-19 12/26/2023 12/26/2023 12/26/2023 9:50 AM CDT Rule Out COVID-19 04/09/2024 04/09/2024 04/10/2024 6:48 PM CDT Assessment Noted Time PHQ-9 Depression Total Score: 9 06/25/20 20 7:04 AM TUGBOAT OPERATOR documented as of this encounter Care Teams Cap Maker Relationship Specialty Start Date End Date Marija Edgar APRN ENTERTAINMENT & MEDIA CORRESPONDENT PCP - General Nurse Practitioner 04/30/20 04/14/23 Esha Grimm, PAUcheC [address] [place] [phone] PCP - General Family Medicine 05/04/23 Lita Oseguera Personal Advocate & Liaison (PAL) 02/28/20 03/27/23 Chanelle Mccann APRN CNM [address] [address] [facility] 200 [place] [address] Assigned OBGYN Provider 05/02/2005/09 Kyara De La Fuente, RN Specialty Information Technology Associate Neurology 06/04/20 03/05/21 Marija Edgar APRN CNP Assigned PCP 06/08/20 04/29/23 Mynor Broussard MD [address] 944875 Assigned Surgical Provider 06/01/20 11/28/21 Keisha Dotson MD 9 [place], [place] 986215 Assigned Neuroscience Provider 06/04/20 04/01/23 Mary Mejia Financial Resource Worker 08/07/20 08/21/20 Stacey Briones, [facility] Lead Information Technology Associate Primary Care - CC 08/11/2012/30 Lesley Moody, [...] Diana Desir, [facility] [address] [place] [address] Pharmacist Pharmacist 04/17/21 Rain Galaviz PA-C [address] [place] [address] [address] [place] [place] [address] Physician Canvas Baster Dermatology 04/28/21 Summer Lara MD [address] [place], [place] 963144 Assigned OBGYN Provider 05/10/2105/23 Summer Lara MD [address] [place], [place] 781304 Assigned OBGYN Provider 05/31/21 Summer Lara MD [address] [facility] [address] [place], [place] 8365[address] Assigned OBGYN Provider 05/24/2105/30 Tavia Wyatt MD [address] [place], [place] 901904 Dermatology 07/14/21 Johnny Murillo MD [address] [place] [address] Assigned Musculoskeletal Provider 08/30/21 03/17/22 Erica Farrell APRN ENTERTAINMENT & MEDIA CORRESPONDENT 6405 [facility] [address] [place] [address] Nurse Practitioner Cardiovascular Disease 09/09/21 Teresita Bean [facility] [address] [place] [address] Pharmacist Pharmacist 09/24/21 09/29/21 Tavia Wyatt MD [address] [place] [address] Assigned Surgical Provider 11/29/21 05/07/22 Diana Desir, [facility] [address] [place] [address] Assigned MTM Pharmacist 01/02/22 Rich Barrett MD [address] [address]59[address] Physician Ophthalmology 01/21/22 Neil Kent MD 500 [place], [place] 17[address]65 Dermatology 02/24/22 Roney Story DPM [address] [facility] 300 [place] [address] Assigned Musculoskeletal Provider 03/20/22 08/13/22 Erica Farrell APRN ENTERTAINMENT & MEDIA CORRESPONDENT 1700 [place] [address] Assigned Heart and Vascular Provider 04/03/22 04/16/22 Diana Desir, [facility] [address] [place] [address] Assigned MTM Pharmacist 04/07/22 Frankie Jelena GarciaSONJA [address] [facility] [place] [address] Assigned Surgical Provider 05/08/22 10/08/22 Galo Burrell MD Assigned Heart and Vascular Provider 04/17/22 06/11/22 Livan Sharif MD [address] [place], [place] 4628[address] Cardiovascular Disease 05/14/22 Livan Sharif MD [address] [place] [address] Assigned Heart and Vascular Provider 06/12/22 07/23/22 Catherine Cm MD [address] [place], [place] 805875 Cardiovascular Disease 07/21/22 Valery Veronica, PA-C 909 [place] [address] Physician Canvas Baster Dermatology 07/21/22 Catherine Cm MD [address] [place] [address] Assigned Heart and Vascular Provider 07/24/22 11/05/22 Johnny Murillo MD [address] [address] Assigned Musculoskeletal Provider 08/14/22 10/08/22 Brea Quinn APRN ENTERTAINMENT & MEDIA CORRESPONDENT 500 [place] [address] Nurse Practitioner Dermatology 09/21/22 Brea Quinn APRN ENTERTAINMENT & MEDIA CORRESPONDENT 6401 [place] [address] Assigned Surgical Provider 10/09/22 05/01/24 [place] [address] [address] [facility] 300 [place] [address] Assigned Musculoskeletal Provider 10/09/22 05/01/24 Livan Sharif MD [address] [facility] [address] [place] 270595 Assigned Heart and Vascular Provider 11/06/22 11/12/22 Catherine Cm MD [address] [place] 1634300 [place] [address] Assigned Heart and Vascular Provider 11/13/22 05/27/23 Sydnie Martinez RN Personal Advocate & Liaison (PAL) Family Medicine 03/28/23 07/31/23 Alfonso Renteria MD 5775 [facility] 200 [place] [address] Assigned Neuroscience Provider 04/02/23 Cheng Todd PA-C [address] [place] [address] Assigned PCP 04/30/23 07/15/23 Radha Lomeli APRN ENTERTAINMENT & MEDIA CORRESPONDENT [address] [facility] [address] [place] [address] Assigned Heart and Vascular Provider 05/28/23 Jelena David OD [address] [facility] [place] [address] MD Ophthalmology 06/15/23 Pao Joseph, VJ Personal Advocate & Liaison (PAL) Nurse 08/01/23 11/07/23 Esha Grimm PA-C [address] [place] [phone] Assigned PCP 07/16/23 Valery Veronica PA-C [address] [place] [address]1845 Physician Canvas Baster Dermatology 09/19/23 Rey Tay MD [address] [place] [address] 832255 Gastroenterology 09/20/23 Rocky Zepeda DO [address] [place] [address] 778095 Physician Gastroenterology 09/20/23 Philip Dumont MD [address] [place] [address] Physician Ophthalmology 09/22/23 Meredith Carrera PA-C [address] [place] [address] Assigned Gastroenterology Provider 11/01/23 Neil Kent MD [address] [address] Dermatology 11/02/23 [place] [address] [address] Neurological Surgery 12/26/23 Audrey Waite PA-C 500 [place] [address] Physician Canvas Baster Dermatology 02/28/24 Valery Veronica PA-C 503749 [address], [place] [address] Physician Canvas Baster Dermatology 04/10/24 Herminia Hatch MD [facility]5 [place], [place] 56233[address] Assigned Rheumatology Provider 07/02/24 documented as of this encounter
--- OUTSIDE RECORDS SUMMARY | 2024-07-22 20:48 | XMS_ITS | Encounter Summary ---
Author Organization [facility] Address [address] [place] [address] Care Team Providers Care Duplex Trimmer Name Role Phone Lita Oseguera Unavailable Unavailable Rakesh Cid PA-C Unavailable [phone] Marija Edgar APRN NEUROPHYSIOLOGIST Primary Care Provider + Chanelle Mccann CEMENT CONTRACTOR CN Unavailab le Lesley Moody CHW Unavailable Kyara De La Fuente RN Unavailable [phone] Marija Edgar APRN [facility] Unavailable Mynor Broussard MD Unavailable [phone] Keisha Dotson MD Unavailable Mary Mejia Unavailable Unavailable Stacey Briones INSTALLER METAL FLOORING Unavailable Lesley Moody CHW Unavailable Mary Mejia Unavailable Unavailable Lita Oseguera Unavailable Unavailable Galo Burrell MD Unavailable Unavailable Cristina Wood Unavailable Lesley Moody CHW Unavailable Meredith Bedoya Unavailable Unavailable Cristina Wood Unavailable Diana Desir [facility] Unavailable [phone] Rain Galaviz PA-C Unavailable Summer Lara MD Unavailable [phone] Summer Lara MD Unavailable [phone] Summer Lara MD Unavailable [phone] Tavia Wyatt MD Unavailable [phone] Johnny Murillo MD Unavailable +1- Erica Farrell APRN NEUROPHYSIOLOGIST Unavailable + Teresita Bean [facility] Unavailable Tavia Wyatt MD Unavailable [phone] Diana Desir [facility] Unavailable [phone] Rich Barrett MD Unavailable [phone] Neil Kent MD Unavailable Roney Story DPM Unavailable Erica Farrell APRN NEUROPHYSIOLOGIST Unavailable + Diana Desir [facility] Unavailable [phone] FrankieJelena OD Unavailable Galo Burrell MD Unavailable Unavailable Livan Sharif MD Unavailable + Livan Sharif MD Unavailable + Catherine Cm MD Unavailable + Valery Veronica PA-C Unavailable [phone] Catherine Cm MD Unavailable + Johnny Murillo MD Unavailable +1- Brea Quinn APRN NEUROPHYSIOLOGIST Unavailable [phone] [place], Brea P CEMENT CONTRACTOR NEUROPHYSIOLOGIST Unavailable Jose Francisco Johnson MD Unavailable Livan Sharif MD Unavailable Catherine Cm MD Unavailable + Sydnie Martinez RN Unavailable Unavailable Alfonso Renteria MD Unavailable [phone] Esha Grimm PA-C Primary Care Provider Cheng Todd PA-C Unavailable LomeliRadha CEMENT CONTRACTOR NEUROPHYSIOLOGIST Unavailable Jelena David OD Unavailable [phone] Pao Joseph RN Unavailable Unavailable Esha Grimm PA-C Unavailable [phone] Valery Veronica PA-C Unavailable Rey Tay MD Unavailable Rocky Zepeda DO Unavailable Philip Dumont MD Unavailable Meredith Carrera PA-C Unavailable Neil Kent MD Unavailable Juan Pablo Emmanuel MD Unavailable Audrey Waite PA-C Unavailable Valery Veronica PA-C Unavailable Herminia Hatch MD Unavailable Encounter Details Date Type Department Care Team (Late st Contact Info) Description 05/16/2020 MyC Medical Advice [facility] [id number] [place] [phone] Jerome Ferrell, RN Social History Tobacco [...] PM CDT Legal Sex Female 4:13 AM SOCIAL WORK PROFESSOR Gender Identity Female 03/02/2021 5:45 PM CDT Sexual Orientation Straight 02/28/2020 12 :51 AM CDT COVID-19 Exposure Response Date Recorded In the last month, have you been in contact with someone who was confirmed or suspected to have Coronavirus / COVID-19? No / Unsure 05/12/2020 9:03 AM SOCIAL WORK PROFESSOR documented as of this encounter Plan of Treatment Upcoming Encounters Date Type Department Care Team (Late st Contact Info) Description 10/23/2024 9:30 AM CDT Office Visit [facility] Neurology [address], [address] [place] [phone] [place] [address] [address] Johnny Penn MD [address] [place], [place] [address] 11/28/2024 7:45 AM CDT Virtual Visit [facility] Gastroenterology Clinic [address] [phone] Meredith Carrera PA-C [address] [place] [address] [phone] documented as of this encounter Visit Diagnoses Not on filedocumented in this encounter Additional Health Concerns Infection Onset Date Last Indicated Resolved Time Rule Out COVID-19 07/30/2020 07/30/2020 07/30/2020 7:11 PM SOCIAL WORK PROFESSOR Rule Out COVID-19 08/30/2020 08/30/2020 08/30/2020 5:05 PM SOCIAL WORK PROFESSOR Rule Out COVID-19 09/24/2020 09/24/2020 09/24/2020 9:24 AM CDT Rule Out COVID-19 11/05/2020 11/05/2020 11/06/2020 1:09 PM CDT Rule Out COVID-19 05/11/2021 05/11/2021 05/13/2021 10:18 AM CDT Rule Out COVID-19 07/13/2021 07/13/2021 07/14/2021 3:04 PM SOCIAL WORK PROFESSOR Rule Out COVID-19 07/18/2021 07/18/2021 07/20/2021 1:56 PM SOCIAL WORK PROFESSOR COVID-19 07/18/2021 07/18/2021 08/08/2021 11:3 9 PM SOCIAL WORK PROFESSOR Rule Out COVID-19 12/18/2021 12/18/2021 12/19/2021 11:34 AM CDT Rule Out COVID-19 02/24/2022 02/24/2022 02/25/2022 1:08 PM CDT Rule Out COVID-19 04/26/2022 04/26/2022 04/26/2022 6:47 AM CDT Rule Out COVID-19 05/17/2022 05/17/2022 05/17/2022 10:20 PM SOCIAL WORK PROFESSOR Rule Out COVID-19 06/09/2022 06/09/2022 06/09/2022 9:35 AM SOCIAL WORK PROFESSOR COVID-19 06/09/2022 06/09/2022 06/30/2022 11:4 1 PM SOCIAL WORK PROFESSOR Rule Out COVID-19 11/10/2022 11/10/2022 11/11/2022 12:17 PM CDT Rule Out COVID-19 03/07/2023 03/07/2023 03/07/2023 1:20 PM CDT Rule Out COVID-19 12/26/2023 12/26/2023 12/26/2023 9:50 AM CDT Rule Out COVID-19 04/09/2024 04/09/2024 04/10/2024 6:48 PM CDT Assessment Noted Time PHQ-9 Depression Total Score: 12 020 2:40 PM CDT documented as of this encounter Care Teams Duplex Trimmer Relationship Specialty Start Date End Date Marija Edgar APRN NEUROPHYSIOLOGIST [address] [place] [address] PCP - General Nurse Practitioner 04/30/20 04/14/23 Esha Grimm PA-C [address] [place] [phone] PCP - General Family Medicine 05/04/23 Lita Oseguera Personal Advocate & Liaison (PAL) 02/28/20 03/27/23 Rakesh Cid PA-C [address] [place] [address] Assigned PCP 03/02/20 06/07/20 [place] [address] [address] [facility] [address] [place], [place] [address] Assigned OBGYN Provider 05/02/2005/09 Lesley Moody, CHW Community Health Worker 05/30/2005/12 Kyara De La Fuente, RN Specialty Printed Circuit Board Designer Neurology 06/04/20 03/05/21 Marija Edgar APRN NEUROPHYSIOLOGIST [address] [place] [address] Assigned PCP 06/08/20 04/29/23 Mynor Broussard MD [address] [facility] [address] [place] [address] Assigned Surgical Provider 06/01/20 11/28/21 Keisha Dotson MD [address] [place] [address] Assigned Neuroscience Provider 06/04/20 04/01/23 Mary Mejia Financial Resource Worker 08/07/20 08/21/20 Stacey Briones, [facility] Lead Printed Circuit Board Designer Primary Care - CC 08/11/2012/30 Lesley Moody, [facility] Community Health Worker 08/11/2010/01 Mary [...] Desir, [facility] [place] [address] Pharmacist Pharmacist 04/17/21 Rain Galaviz PA-C [address] [place] [address] [place] [address] Physician Polytechnic Teacher Dermatology 04/28/21 Summer Lara MD [address] [place] [address] Assigned OBGYN Provider 05/10/2105/23 Summer Lara MD [address] [place] [address] Assigned OBGYN Provider 05/31/21 2 Summer Lara MD [address] [place] [address] Assigned OBGYN Provider 05/24/2105/30 Tavia Wyatt MD [address] [place] [address] Dermatology 07/14/21 Johnny Murillo MD [address] [facility] [address] [place] [address] Assigned Musculoskeletal Provider 08/30/21 03/17/22 Erica Farrell APRN NEUROPHYSIOLOGIST [address] [facility] [place] [address] [place] [id number] Nurse Practitioner Cardiovascular Disease 09/09/21 Teresita Bean [facility] [address] [place] [address] Pharmacist Pharmacist 09/24/21 09/29/21 Tavia Wyatt MD [address] [place] [address] Assigned Surgical Provider 11/29/21 05/07/22 [facility] [address] [place] [address] Assigned MTM Pharmacist 01/02/22 Rich Barrett MD [address] [facility], [facility] [address] [place], [place] 8[address] Physician Ophthalmology 01/21/22 Neil Kent MD [address] [place], [place] [phone] Dermatology 02/24/22 Roney Story DPM [address] [address] [facility] [address] [place], [place] [phone] Assigned Musculoskeletal Provider 03/20/22 08/13/22 Erica Farrell APRN NEUROPHYSIOLOGIST [address] [place] [address] Assigned Heart and Vascular Provider 04/03/22 04/16/22 [facility] [address] [place] [address] Assigned MTM Pharmacist 04/07/22 Jelena David OD [address] [place] [address] Assigned Surgical Provider 05/08/22 10/08/22 Galo Burrell MD Assigned Heart and Vascular Provider 04/17/22 06/11/22 Livan Sharif MD [address] [facility] , [facility] [address] [place] [address] Cardiovascular Disease 05/14/22 Livan Sharif MD [address] [place] [address] Assigned Heart and Vascular Provider 06/12/22 07/23/22 Catherine Cm MD [address] [place] [place] [address] [place] [address] Cardiovascular Disease 07/21/22 Valery Veronica, PA-C [address] [place] [address] Physician Polytechnic Teacher Dermatology 07/21/22 Catherine Cm MD [address] [place] [address] Assigned Heart and Vascular Provider 07/24/22 11/05/22 Johnny Murillo MD [address] [place] [address] [id number] Assigned Musculoskeletal Provider 08/14/22 10/08/22 Brea Quinn APRN NEUROPHYSIOLOGIST [address] [place] [address] Nurse Practitioner Dermatology 09/21/22 Brea Quinn APRN NEUROPHYSIOLOGIST [address] [place] [address] [place] [address] Assigned Surgical Provider 10/09/22 05/01/24 [place] [address] [place] [address] Assigned Musculoskeletal Provider 10/09/22 05/01/24 Livan Sharif MD [address], [facility] [address] [place] [address] Assigned Heart and Vascular Provider 11/06/22 11/12/22 Catherine Cm MD [address] [facility] [address] [place] [address] Assigned Heart and Vascular Provider 11/13/22 05/27/23 Sydnie Martinez RN Personal Advocate & Liaison (PAL) Family Medicine 03/28/23 07/31/23 Alfonso Renteria MD [address] [facility] 200 [place] [address] Assigned Neuroscience Provider 04/02/23 Cheng Todd PA-C [address] [place] [address] Assigned PCP 04/30/23 07/15/23 Radha Lomeli, ARLENE NEUROPHYSIOLOGIST [address] [place] [address] Assigned Heart and Vascular Provider 05/28/23 eJlena David OD [facility]5 [facility] [place] [address] Ophthalmology 06/15/23 Pao Joseph, VJ Personal Advocate & Liaison (PAL) Nurse 08/01/23 11/07/23 Esha Grimm PAUcheC [address] [place] [phone] Assigned PCP 07/16/23 Valery Veronica PA-C [address] [place] [address] Physician Polytechnic Teacher Dermatology 09/19/23 Rey Tay MD [address] [place] [address] MD Gastroenterology 09/20/23 Rocky Zepeda DO [address] [place] [address] [phone] Physician Gastroenterology 09/20/23 Philip Dumont MD [address] [place] [address] Physician Ophthalmology 09/22/23 Meredith Carrera PA-C [address] [place] [address] Assigned Gastroenterology Provider 11/01/23 Neil Kent MD [address] [address] Dermatology 11/02/23 [place] [address] [place], [place] [address] Neurological Surgery 12/26/23 Audrey Waite PA-C [address] [place] [address] 247975 Physician Polytechnic Teacher Dermatology 02/28/24 Valery Veronica PA-C [address] [place] [address] Physician Polytechnic Teacher Dermatology 04/10/24 Herminia Hatch MD [address] [place] [address] Assigned Rheumatology Provider 07/02/24 documented as of this encounter
--- OUTSIDE RECORDS SUMMARY | 2024-07-22 20:48 | XMS_ITS | Encounter Summary ---
Author Organization [facility] Address [address] [place] [address] Care Team Providers Care Alarm Mechanic Name Role Phone Lita Oseguera Unavailable Unavailable Rakesh Cid PA-C Unavailable Marija Edgar APRN PHARMACY ORDER ENTRY TECHNICIAN Primary Care Provider + Chanelle Mccann SOFTWARE SUPPORT TECHNICIAN CN Unavailab le Lesley Moody CHW Unavailable Kyara De La Fuente RN Unavailable [phone] Marija Edgar APRN [facility] Unavailable Mynor Broussard MD Unavailable [phone] Keisha Dotson MD Unavailable Mary Mejia Unavailable Unavailable Stacey Briones ACCOUNTANT CONTROLLER Unavailable Lesley Moody CHW Unavailable Mary Mejia Unavailable Unavailable Lita Oseguera Unavailable Unavailable Galo Burrell MD Unavailable Unavailable Cristina Wood Unavailable Lesley Moody CHW Unavailable [phone] Meredith Bedoya Unavailable Unavailable Cristina Wood Unavailable Diana Desir [facility] Unavailable [phone] Rain Galaviz PA-C Unavailable Summer Lara MD Unavailable [phone] Summer Lara MD Unavailable [phone] Summer Lara MD Unavailable [phone] Tavia Wyatt MD Unavailable [phone] Johnny Murillo MD Unavailable +1- Erica Farrell APRN PHARMACY ORDER ENTRY TECHNICIAN Unavailable + Teresita Bean [facility] Unavailable Tavia Wyatt MD Unavailable [phone] Diana Desir [facility] Unavailable [phone] Rich Barrett MD Unavailable [phone] Neil Kent MD Unavailable Roney Story DPM Unavailable Erica Farrell APRN PHARMACY ORDER ENTRY TECHNICIAN Unavailable + Diana Desir [facility] Unavailable [phone] FrankieJelena OD Unavailable Galo Burrell MD Unavailable Unavailable Livan Sharif MD Unavailable + Livan Sharif MD Unavailable + Catherine Cm MD Unavailable + Valery Veronica PA-C Unavailable [phone] Catherine Cm MD Unavailable + Jhonny Murillo MD Unavailable +1- Brea Quinn APRN PHARMACY ORDER ENTRY TECHNICIAN Unavailable +[phone] [place], Brea P SOFTWARE SUPPORT TECHNICIAN PHARMACY ORDER ENTRY TECHNICIAN Unavailable [phone] Jose Francisco Johnson MD Unavailable Livan Sharif MD Unavailable Catherine Cm MD Unavailable + Sydnie Martinez RN Unavailable Unavailable Alfonso Renteria MD Unavailable [phone] Esha Grimm PA-C Primary Care Provider Cheng Todd PA-C Unavailable Radha Lomeli SOFTWARE SUPPORT TECHNICIAN PHARMACY ORDER ENTRY TECHNICIAN Unavailable Jelena David OD Unavailable Pao Joseph RN Unavailable Unavailable Esha Grimm PA-C Unavailable [phone] Valery Veronica PA-C Unavailable Rey Tay MD Unavailable Rocky Zepeda DO Unavailable Philip Dumont MD Unavailable Meredith Carrera PA-C Unavailable [phone] Neil Kent MD Unavailable Juan Pablo Emmanuel MD Unavailable Audrey Waite PA-C Unavailable [phone] Valery Veronica PA-C Unavailable [phone] Herminia Hatch MD Unavailable Encounter Details Date Type Department Care Team (Late st Contact Info) Description 06/05/2020 [facility] [address] [address] Marija Edgar APRN PHARMACY ORDER ENTRY TECHNICIAN [address] [place], [place] [address] Social History Tobacco Use Types Packs/Day [...] PM CDT Legal Sex Female 4:13 AM HAZ TECH Gender Identity Female 03/02/2021 5:45 PM CDT Sexual Orientation Straight 02/28/2020 12 :51 AM CDT COVID-19 Exposure Response Date Recorded In the last month, have you been in contact with someone who was confirmed or suspected to have Coronavirus / COVID-19? No / Unsure 06/04/2020 10:30 AM HAZ TECH documented as of this encounter Miscellaneous Notes * Telephone Encounter - Marija Edgar APRN CNP - 06/09/2020 9:38 AM HAZ TECH Those referrals have been placed. The mental health attempted call but patient did not answer. Please have patient check voicemail's or await one further follow-up call. They will call her to set up Holter monitor. Thank you Marija Edgar APRN CNP on 06/09/2020 at 9:40 AM TECH documented in this encounter Plan of Treatment Upcoming Encounters Date Type Department Care Team (Late st Contact Info) Description 10/23/2024 9:30 AM CDT Office Visit [facility] [place] [address] [place] [address], [address] [place] [address] [place] [address] [address] [place] [address] Johnny Penn MD [address] [facility] [place] [address] 11/28/2024 7:45 AM CDT Virtual Visit [facility] [place] [address] [facility] [address] 4[address] [place] [address] Meredith Carrera PA-C [address] [place] [address] documented as of this encounter Visit Diagnoses Not on filedocumented in this encounter Additional Health Concerns Infection Onset Date Last Indicated Resolved Time Rule Out COVID-19 07/30/2020 07/30/2020 07/30/2020 7:11 PM HAZ TECH Rule Out COVID-19 08/30/2020 08/30/2020 08/30/2020 5:05 PM HAZ TECH Rule Out COVID-19 09/24/2020 09/24/2020 09/24/2020 9:24 AM CDT Rule Out COVID-19 11/05/2020 11/05/2020 11/06/2020 1:09 PM CDT Rule Out COVID-19 05/11/2021 05/11/2021 05/13/2021 10:18 AM CDT Rule Out COVID-19 07/13/2021 07/13/2021 07/14/2021 3:04 PM HAZ TECH Rule Out COVID-19 07/18/2021 07/18/2021 07/20/2021 1:56 PM HAZ TECH COVID-19 07/18/2021 07/18/2021 08/08/2021 11:3 9 PM HAZ TECH Rule Out COVID-19 12/18/2021 12/18/2021 12/19/2021 11:34 AM CDT Rule Out COVID-19 02/24/2022 02/24/2022 02/25/2022 1:08 PM CDT Rule Out COVID-19 04/26/2022 04/26/2022 04/26/2022 6:47 AM CDT Rule Out COVID-19 05/17/2022 05/17/2022 05/17/2022 10:20 PM HAZ TECH Rule Out COVID-19 06/09/2022 06/09/2022 06/09/2022 9:35 AM HAZ TECH COVID-19 06/09/2022 06/09/2022 06/30/2022 11:4 1 PM HAZ TECH Rule Out COVID-19 11/10/2022 11/10/2022 11/11/2022 12:17 PM CDT Rule Out COVID-19 03/07/2023 03/07/2023 03/07/2023 1:20 PM CDT Rule Out COVID-19 12/26/2023 12/26/2023 12/26/2023 9:50 AM CDT Rule Out COVID-19 04/09/2024 04/09/2024 04/10/2024 6:48 PM CDT Assessment Noted Time PHQ-9 Depression Total Score: 9 06/04/20 10:35 AM HAZ TECH documented as of this encounter Care Teams Alarm Mechanic Relationship Specialty Start Date End Date Marija Edgar APRN PHARMACY ORDER ENTRY TECHNICIAN [address] [place] [address] PCP - General Nurse Practitioner 04/30/20 04/14/23 Esha Grimm PA-C [address] [place] [phone] PCP - General Family Medicine 05/04/23 Lita Oseguera Personal Advocate & Liaison (PAL) 02/28/20 03/27/23 Rakesh Cid PA-C [address] [place] [address] Assigned PCP 03/02/20 06/07/20 Chanelle Mccann APRN [place] [address] [address] Assigned OBGYN Provider 05/02/2005/09 Lesley Moody Community Health Worker 05/30/2005/12 Kyara De La Fuente, RN Specialty Logistics Support Neurology 06/04/20 03/05/21 Marija Edgar APRN PHARMACY ORDER ENTRY TECHNICIAN [address] [place] [address] Assigned PCP 06/08/20 04/29/23 Mynor Broussard MD [address] [place] [address] Assigned Surgical Provider 06/01/20 11/28/21 Keisha Dotson MD [address] [place], [place] [phone] Assigned Neuroscience Provider 06/04/20 04/01/23 Mary Mejia Financial Resource Worker 08/07/20 08/21/20 Stacey Briones, [facility] Lead Logistics Support Primary Care - CC 08/11/2012/30 Lesley Moody, W Community Health Worker 08/11/2010/01 Mary Mejia Financial Resource Worker 09/02/20 10/06/20 Lita Oseguera Personal Advocate & Liaison (PAL) Family Medicine 09/10/20 09/21/20 Galo Burrell MD Assigned Heart and Vascular Provider 10/05/20 04/02/22 Cristina Wood Financial Resource Worker 10/07/20 10/14/20 Lesley Moody, W Community Health Worker 10/23/2012/30 Meredith Bedoya Financial Resource Worker 10/23/20 11/23/20 MehlCristina younger Financial Resource Worker 02/09/21 02/09/21 Diana Desir, [facility] [address] [place] [address] Pharmacist Pharmacist 04/17/21 Rain Galaviz PA-C [address] [place] [address] [place] [address] Physician Genetic Technologist Dermatology 04/28/21 Summer Lara MD [address] [place] [address] Assigned OBGYN Provider 05/10/2105/23 Summer Lara MD [address] [place] [address] Assigned OBGYN Provider 05/31/21 Summer Lara MD [address] [place] [address] [phone] Assigned OBGYN Provider 05/24/2105/30 Tavia Wyatt MD [address] [place] [address] [phone] Dermatology 07/14/21 Johnny Murillo MD [facility] [address] [place] [address] Assigned Musculoskeletal Provider 08/30/21 03/17/22 Erica Farrell APRN PHARMACY ORDER ENTRY TECHNICIAN [id number] [place] [address] Nurse Practitioner Cardiovascular Disease 09/09/21 Teresita Bean [facility] [address] [facility] [place] [address] Pharmacist Pharmacist 09/24/21 09/29/21 Tavia Wyatt MD [address] [place] [address] Assigned Surgical Provider 11/29/21 05/07/22 Diana Desir [facility] [address] [place] [address] Assigned MTM Pharmacist 01/02/22 Rich Barrett MD [address] [phone] Physician Ophthalmology 01/21/22 Neil Kent MD [address] [place] [address] Dermatology 02/24/22 Roney Story DPM [address] [facility] [address] [place] [address] Assigned Musculoskeletal Provider 03/20/22 08/13/22 Erica Farrell APRN PHARMACY ORDER ENTRY TECHNICIAN [address] [place] [address] Assigned Heart and Vascular Provider 04/03/22 04/16/22 Diana Desir [facility] [address] [place] [address] Assigned MTM Pharmacist 04/07/22 Jelena David OD [address] [facility] [place] [address] Assigned Surgical Provider 05/08/22 10/08/22 Galo Burrell MD Assigned Heart and Vascular Provider 04/17/22 06/11/22 Livan Sharif MD [address] [place] [address] Cardiovascular Disease 05/14/22 Livan Sharif MD [address] [place] 35[address] Assigned Heart and Vascular Provider 06/12/22 07/23/22 Catherine Cm MD [address] [facility] [address] [place] [id number] Cardiovascular Disease 07/21/22 Valery Veronica, PA-C [address] [place], [place] 6[address] Physician Genetic Technologist Dermatology 07/21/22 Catherine Cm MD [address] [place] 655[address] Assigned Heart and Vascular Provider 07/24/22 11/05/22 Johnny Murillo MD [facility] [address] [place] [address] 801654 Assigned Musculoskeletal Provider 08/14/22 10/08/22 Brea Quinn APRN PHARMACY ORDER ENTRY TECHNICIAN [address] [place] [address] Nurse Practitioner Dermatology 09/21/22 Brea Quinn APRN PHARMACY ORDER ENTRY TECHNICIAN [address] [place] [address] Assigned Surgical Provider 10/09/22 05/01/24 [place] [address] [address] Assigned Musculoskeletal Provider 10/09/22 05/01/24 Livan Sharif MD [address] [facility] [address] [place] [address] Assigned Heart and Vascular Provider 11/06/22 11/12/22 Catherine Cm MD [address] [facility] [address] [place] [address] Assigned Heart and Vascular Provider 11/13/22 05/27/23 Sydnie Martinez RN Personal Advocate & Liaison (PAL) Family Medicine 03/28/23 07/31/23 Alfonso Renteria MD [address] [facility] [address] [place], [place] 514[address] Assigned Neuroscience Provider 04/02/23 Cheng Todd PA-C [address] [place] [address] [id number] Assigned PCP 04/30/23 07/15/23 Armani Radha ARLENE Stovall PHARMACY ORDER ENTRY TECHNICIAN [address] [facility] [address] [place], [place] [address] Assigned Heart and Vascular Provider 05/28/23 Jelena David OD [address] [facility] [address] [place] [id number] MD Ophthalmology 06/15/23 Pao Joseph, VJ Personal Advocate & Liaison (PAL) Nurse 08/01/23 11/07/23 Esha Grimm PA-C [address] [place] [phone] Assigned PCP 07/16/23 Valery Veronica PA-C [address] [place] [address] [phone] Physician Genetic Technologist Dermatology 09/19/23 Rey Tay MD [address] [place] [address] 823105 Gastroenterology 09/20/23 Rocky Zepeda DO [address] [place] [address] 960245 Physician Gastroenterology 09/20/23 Philip Dumont MD [address] [place] [address] 595455 Physician Ophthalmology 09/22/23 Meredith Carrera PA-C [address] [place] [address] 410285 Assigned Gastroenterology Provider 11/01/23 Neil Kent MD [address] [address] Dermatology 11/02/23 [place] [address] [address] [facility] [place] [address] Neurological Surgery 12/26/23 Audrey Waite PA-C [address] [place] [address] Physician Genetic Technologist Dermatology 02/28/24 Valery Veronica PA-C 755061 [address] [address] Physician Genetic Technologist Dermatology 04/10/24 Herminia Hatch MD [facility] [place], [place] [id number] Assigned Rheumatology Provider 07/02/24 documented as of this encounter
--- OUTSIDE RECORDS SUMMARY | 2024-07-22 20:48 | XMS_ITS | Encounter Summary ---
Author Organization [facility] Address [address] [place] [id number] Care Team Providers Care Asphalt Surface Heater Operator Name Role Phone Lita Oseguera Unavailable Unavailable Marija Edgar APRN PARALEGAL SPECIALIST Primary Care Provider + Chanelle Mccann MAPLE PRODUCTS MAKER CNM Unavailab le Kyara De La Fuente RN Unavailable [phone] Marija Edgar APRN PARALEGAL SPECIALIST Unavailable [phone] Mynor Broussard MD Unavailable [phone] Keisha Dotson MD Unavailable Mary Mejia Unavailable Unavailable Stacey Briones YARN WEIGHT AND STRENGTH TESTER Unavailable [phone] Lesley Moody CHW Unavailable [phone] Mary Mejia Unavailable Unavailable Lita Oseguera Unavailable Unavailable Galo Burrell MD Unavailable Unavailable Cristina Wood Unavailable Lesley Moody CHW Unavailable [phone] Meredith Bedoya Unavailable Unavailable Cristina Wood Unavailable Diana Desir [facility] Unavailable [place]uhland, Rain Lena PA-C Unavailable Summer Lara MD Unavailable [phone] Summer Lara MD Unavailable [phone] Summer Lara MD Unavailable [phone] Tavia Wyatt MD Unavailable [phone] Johnny Murillo MD Unavailable +1- Erica Farrell MAP[employer] PRODU[employer] MAKER PARALEGAL SPECIALIST Unavailable VikasTeresita H Unavailable Tavia Wyatt MD Unavailable [phone] Diana Desir [facility] Unavailable [phone] Rich Barrett MD Unavailable Neil Kent MD Unavailable Roney Story [facility] Unavailable Erica Farrell APRN PARALEGAL SPECIALIST Unavailable Diana Desir [facility] Unavailable [phone] Jelena David OD Unavailable [phone] Galo Burrell MD Unavailable Unavailable Livan Sharif MD Unavailable Livan Sharif MD Unavailable + Catherine Cm MD Unavailable + Valery Veronica PA-C Unavailable [phone] Catherine Cm MD Unavailable + Johnny Murillo MD Unavailable +1- Brea Quinn [employer] PRODU[employer] MAKER PARALEGAL SPECIALIST Unavailable [phone] Brea Quinn MAP[employer] PRODUCTS MAKER PARALEGAL SPECIALIST Unavailable [phone] Jose Francisco Johnson MD Unavailable Livan Sharif MD Unavailable Catherine Cm MD Unavailable + Sydnie Martinez RN Unavailable Unavailable Alfonso Renteria MD Unavailable [phone] Esha Grimm PA-C Primary Care Provider Cheng Todd PA-C Unavailable Radha Lomeli APRN PARALEGAL SPECIALIST Unavailable FrankieJelena OD Unavailable [phone] Pao Joseph RN Unavailable Unavailable Esha Grimm PA-C Unavailable [phone] Valery Veronica PA-C Unavailable Rey Tay MD Unavailable Rocky Zepeda DO Unavailable Philip Dumont MD Unavailable Meredith Carrera PA-C Unavailable Neil Kent MD Unavailable Juan Pablo Emmanuel MD Unavailable Audrey Waite PA-C Unavailable [phone] JeremíasValery damon PA-C Unavailable Herminia Hatch MD Unavailable Encounter Details Date Type Department Care Team (Latest Contact Info) Description 07/29/2020 MyC Medical Advice [facility] [id number] [place] [phone] Marija Edgar APRN PARALEGAL SPECIALIST [address] [place] [address] Palpitations (Primary Dx) Social History Tobacco [...] PM CDT Legal Sex Female 4:13 AM DIRT CONTRACTOR Gender Identity Female 03/02/2021 5:45 PM CDT Sexual Orientation Straight 02/28/2020 12 :51 AM CDT COVID-19 Exposure Response Date Recorded In the last month, have you been in contact with someone who was confirmed or suspected to have Coronavirus / COVID-19? No / Unsure 07/30/2020 4:53 PM DIRT CONTRACTOR documented as of this encounter Miscellaneous Notes * Telephone Encounter - Marija Edgar APRN PARALEGAL SPECIALIST - 07/30/2020 10:21 AM DIRT CONTRACTOR Responded via [employer] Marija Edgar APRN PARALEGAL SPECIALIST on 07/30/2020 at 10:28 AM CONTRACTOR documented in this encounter Plan of Treatment Upcoming Encounters Date Type Department Care Team (Late st Contact Info) Description 10/23/2024 9:30 AM CDT Office Visit [facility] Neurology [address] [place] [address] [place] [address] [place], [place] [phone] Johnny Penn MD [address] [place] [address] [phone] 11/28/2024 7:45 AM CDT Virtual Visit [facility] [address] 4[address] [place] [address] Meredith Carrera PAUcheC [address] [place] [address] [phone] (work) documented as of this encounter Visit Diagnoses Diagnosis Palpitations- Primary documented in this encounter Additional Health Concerns Infection Onset Date Last Indicated Resolved Time Rule Out COVID-19 07/30/2020 07/30/2020 07/30/2020 7:11 PM DIRT CONTRACTOR Rule Out COVID-19 08/30/2020 08/30/2020 08/30/2020 5:05 PM DIRT CONTRACTOR Rule Out COVID-19 09/24/2020 09/24/2020 09/24/2020 9:24 AM CDT Rule Out COVID-19 11/05/2020 11/05/2020 11/06/2020 1:09 PM CDT Rule Out COVID-19 05/11/2021 05/11/2021 05/13/2021 10:18 AM CDT Rule Out COVID-19 07/13/2021 07/13/2021 07/14/2021 3:04 PM DIRT CONTRACTOR Rule Out COVID-19 07/18/2021 07/18/2021 07/20/2021 1:56 PM DIRT CONTRACTOR COVID-19 07/18/2021 07/18/2021 08/08/2021 11:3 9 PM DIRT CONTRACTOR Rule Out COVID-19 12/18/2021 12/18/2021 12/19/2021 11:34 AM CDT Rule Out COVID-19 02/24/2022 02/24/2022 02/25/2022 1:08 PM CDT Rule Out COVID-19 04/26/2022 04/26/2022 04/26/2022 6:47 AM CDT Rule Out COVID-19 05/17/2022 05/17/2022 05/17/2022 10:20 PM DIRT CONTRACTOR Rule Out COVID-19 06/09/2022 06/09/2022 06/09/2022 9:35 AM DIRT CONTRACTOR COVID-19 06/09/2022 06/09/2022 06/30/2022 11:4 1 PM DIRT CONTRACTOR Rule Out COVID-19 11/10/2022 11/10/2022 11/11/2022 12:17 PM CDT Rule Out COVID-19 03/07/2023 03/07/2023 03/07/2023 1:20 PM CDT Rule Out COVID-19 12/26/2023 12/26/2023 12/26/2023 9:50 AM CDT Rule Out COVID-19 04/09/2024 04/09/2024 04/10/2024 6:48 PM CDT Assessment Noted Time PHQ-9 Depression Total Score: 9 06/25/20 7:04 AM DIRT CONTRACTOR documented as of this encounter Care Teams Asphalt Surface Heater Operator Relationship Specialty Start Date End Date Marija Edgar APRN PARALEGAL SPECIALIST PCP - General Nurse Practitioner 04/30/20 04/14/23 Esha Grimm PA-C [address] [place] [phone] PCP - General Family Medicine 05/04/23 Lita Oseguera Personal Advocate & Liaison (PAL) 02/28/20 03/27/23 Chanelle Mccann APRN CNAdam [id number] [place] [address] 200 [place], [place] [phone] Assigned OBGYN Provider 05/02/2005/09 Kyara De La Fuente, RN Specialty Merchandise Planner Neurology 06/04/20 03/05/21 Marija Edgar APRN PARALEGAL SPECIALIST Assigned PCP 06/08/20 04/29/23 Mynor Broussard MD [address] [facility] 500 [place] [address] Assigned Surgical Provider 06/01/20 11/28/21 Keisha Dotson MD [address] [place] [address] Assigned Neuroscience Provider 06/04/20 04/01/23 Aditi Mejiandra Financial Resource Worker 08/07/20 08/21/20 Stacey Briones, [facility] Lead Merchandise Planner Primary Care - CC 08/11/2012/30 Lesley Moody, [facility] Community Health Worker 08/11/2010/01 Nikiatimothy Mary Financial Resource Worker 09/02/20 10/06/20 Lita Oseguera Personal Advocate & Liaison (PAL) Family Medicine 09/10/20 09/21/20 Galo Burrell MD Assigned Heart and Vascular Provider 10/05/20 04/02/22 Cristina Wood Financial Resource Worker 10/07/20 10/14/20 Lesley Moody, [facility] Community Health Worker 10/23/2012/30 Meredith Bedoya Financial Resource Worker 10/23/20 11/23/20 Cristina Wood Financial Resource Worker 02/09/21 02/09/21 Diana Desir, [facility] [address] [place], [place] [phone] Pharmacist Pharmacist 04/17/21 Rain Galaviz PA-C [address] [place] [address] [address] [place], [place] [phone] Physician Major Sales Associate Dermatology 04/28/21 Summer Lara MD [address] [place], [place] [phone] Assigned OBGYN Provider 05/10/2105/23 Summer Lara MD [address] [place] [address] [phone] Assigned OBGYN Provider 05/31/21 2 Summer Lara MD [address] [place] [address] [phone] Assigned OBGYN Provider 05/24/2105/30 Tavia Wyatt MD [address] [place] [address] 491944 Dermatology 07/14/21 Johnny Murillo MD [facility] [address] [place] [address] Assigned Musculoskeletal Provider 08/30/21 03/17/22 Erica Farrell APRN [facility] [address] [facility] [address] [place] [address] Nurse Practitioner Cardiovascular Disease 09/09/21 Teresita Bean [facility] [address] [place], [place] [phone] Pharmacist Pharmacist 09/24/21 09/29/21 Tavia Wyatt MD [address] [place], [place] [phone] Assigned Surgical Provider 11/29/21 05/07/22 Diana Desir, [facility] [address] [place] [address] Assigned MTM Pharmacist 01/02/22 Rich Barrett MD [address] [address] Physician Ophthalmology 01/21/22 Neil Kent MD [address] [place], [place] 8[address] Dermatology 02/24/22 Roney Story DPM [address] [facility] [address] [place], [place] [phone] Assigned Musculoskeletal Provider 03/20/22 08/13/22 Erica Farrell APRN PARALEGAL SPECIALIST [address] [place] [address] Assigned Heart and Vascular Provider 04/03/22 04/16/22 Diana Desir, [facility] [address] [place] [address] Assigned MTM Pharmacist 04/07/22 Jelena David OD [address] [facility] [place] [address] Assigned Surgical Provider 05/08/22 10/08/22 Galo Burrell MD Assigned Heart and Vascular Provider 04/17/22 06/11/22 Livan Sharif MD [address] [facility] [address] [place] [address] Cardiovascular Disease 05/14/22 Livan Sharif MD [address], [facility] [address] [place] [address] Assigned Heart and Vascular Provider 06/12/22 07/23/22 Catherine Cm MD [address] [facility] [address] [place] [address] Cardiovascular Disease 07/21/22 Valery Veronica PAUcheC [address] [place] [address] 747125 Physician Major Sales Associate Dermatology 07/21/22 Catherine Cm MD [address] [facility]00 [place] 067245 Assigned Heart and Vascular Provider 07/24/22 11/05/22 Johnny Murillo MD [facility] [address] 486904 Assigned Musculoskeletal Provider 08/14/22 10/08/22 Brea Quinn APRN PARALEGAL SPECIALIST [address] [place] [address] [phone] Nurse Practitioner Dermatology 09/21/22 Brea Quinn APRN PARALEGAL SPECIALIST [address] [place] [address] [place] 882202 Assigned Surgical Provider 10/09/22 05/01/24 [place] [address] RA[address] [place], [place] [address] [address] Assigned Musculoskeletal Provider 10/09/22 05/01/24 Livan Shraif MD [address], [facility] [address] [place] 599[address] Assigned Heart and Vascular Provider 11/06/22 11/12/22 Catherine Cm MD [address] [facility] [address] [place] [address] Assigned Heart and Vascular Provider 11/13/22 05/27/23 Sydnie Martinez, RN Personal Advocate & Liaison (PAL) Family Medicine 03/28/23 07/31/23 Alfonso Renteria MD [address] [facility] 200 [place] [address] Assigned Neuroscience Provider 04/02/23 Cheng Todd PA-C [address] [place] [address] [phone] Assigned PCP 04/30/23 07/15/23 Radha Lomeil, [employer] PRODU[employer] MAKER PARALEGAL SPECIALIST [address] [place] [address] Assigned Heart and Vascular Provider 05/28/23 Jelena David OD [facility] [facility] [place] [address] Ophthalmology 06/15/23 Pao Joseph, VJ Personal Advocate & Liaison (PAL) Nurse 08/01/23 11/07/23 Esha Grimm PA-C [address] [place] [phone] Assigned PCP 07/16/23 Valery Veronica PA-C [address] [place], [place] 7[address] Physician Major Sales Associate Dermatology 09/19/23 Rey Tay MD [address] [place] [address] [phone] MD Gastroenterology 09/20/23 Rocky Zepeda DO [address] [place] [address] [phone] Physician Gastroenterology 09/20/23 Philip Dumont MD [address] [place] [address] [phone] Physician Ophthalmology 09/22/23 Meredith Carrera PA-C [address] [place], [place] 28[address] Assigned Gastroenterology Provider 11/01/23 Neil Kent MD [address] [address] Dermatology 11/02/23 [place] [address] [facility] [place] [address] Neurological Surgery 12/26/23 Audrey Waite PA-C 500 [place] [address] Physician Major Sales Associate Dermatology 02/28/24 Valery Veronica PA-C [address] [place] [address] Physician Major Sales Associate Dermatology 04/10/24 Herminia Hatch MD [address] [place] [address] Assigned Rheumatology Provider 07/02/24 documented as of this encounter
--- OUTSIDE RECORDS SUMMARY | 2024-07-22 20:48 | XMS_ITS | Encounter Summary ---
Author Organization [facility] Address [address] [place] [address] Care Team Providers Care Piece Maker Name Role Phone Lita Oseguera Unavailable Unavailable Rakesh Cid PA-C Unavailable [phone] Marija Edgar APRN AIRCRAFT DETAIL DRAFTSPERSON Primary Care Provider + Chanelle Mccann SHEET METAL OPERATOR CN Unavailab le Lesley Moody CHW Unavailable Kyara De La Fuente RN Unavailable [phone] Marija Edgar APRN [facility] Unavailable Mynor Broussard MD Unavailable [phone] Keisha Dotson MD Unavailable Mary Mejia Unavailable Unavailable Stacey Briones ANESTHESIOLOGIST PHYSICIAN Unavailable Lesley Moody CHW Unavailable [phone] Mary Mejia Unavailable Unavailable Lita Oseguera Unavailable Unavailable Galo Burrell MD Unavailable Unavailable Cristina Wood Unavailable Lesley Moody CHW Unavailable [phone] Meredith Bedoya Unavailable Unavailable Cristina Wood Unavailable Diana Desir [facility] Unavailable [phone] Rain Galaviz PA-C Unavailable Summer Lara MD Unavailable Summer Lara MD Unavailable [phone] Summer Lara MD Unavailable [phone] Tavia Wyatt MD Unavailable [phone] Johnny Murillo MD Unavailable +1- Erica Farrell APRN AIRCRAFT DETAIL DRAFTSPERSON Unavailable + Teresita Bean [facility] Unavailable Tavia Wyatt MD Unavailable [phone] Diana Desir [facility] Unavailable [phone] Rich Barrett MD Unavailable [phone] Neil Kent MD Unavailable Roney Story DPM Unavailable Erica Farrell APRN AIRCRAFT DETAIL DRAFTSPERSON Unavailable + Diana Desir [facility] Unavailable [phone] FrankieJelena OD Unavailable Galo Burrell MD Unavailable Unavailable Livan Sharif MD Unavailable + Livan Sharif MD Unavailable + Catherine Cm MD Unavailable + Valery Veronica PA-C Unavailable [phone] Catherine Cm MD Unavailable + Johnny Murillo MD Unavailable +1- Brea Quinn APRN AIRCRAFT DETAIL DRAFTSPERSON Unavailable +1- [phone], Brea P SHEET METAL OPERATOR AIRCRAFT DETAIL DRAFTSPERSON Unavailable Jose Francisco Johnson MD Unavailable Livan Sharif MD Unavailable Catherine Cm MD Unavailable + Sydnie Martinez RN Unavailable Unavailable Alfonso Renteria MD Unavailable [phone] Esha Grimm PA-C Primary Care Provider Cheng Todd PA-C Unavailable Radha Lomeli SHEET METAL OPERATOR AIRCRAFT DETAIL DRAFTSPERSON Unavailable Jelena David OD Unavailable Pao Joseph RN Unavailable Unavailable Esha Grimm PA-C Unavailable [phone] Valery Veronica PA-C Unavailable Rey Tay MD Unavailable Rocky Zepeda DO Unavailable Pihlip Dumotn MD Unavailable [phone] Meredith Carrera PA-C Unavailable Neil Kent MD Unavailable Juan Pablo Emmanuel MD Unavailable Audrey Waite PA-C Unavailable [phone] Valery Veronica PA-C Unavailable Herminia Hatch MD Unavailable Encounter Details Date Type Department Care Team (Late st Contact Info) Description 05/23/2020 [facility] [address] [address] Marija Edgar APRN AIRCRAFT DETAIL DRAFTSPERSON [address] [place], [place] [address] Social History [...] PM CDT Legal Sex Female 4:13 AM WOODWIND INSTRUMENT REPAIRER Gender Identity Female 03/02/2021 5:45 PM CDT Sexual Orientation Straight 02/28/2020 12 :51 AM CDT COVID-19 Exposure Response Date Recorded In the last month, have you been in contact with someone who was confirmed or suspected to have Coronavirus / COVID-19? No / Unsure 05/12/2020 9:03 AM WOODWIND INSTRUMENT REPAIRER documented as of this encounter Plan of Treatment Upcoming Encounters Date Type Department Care Team (Late st Contact Info) Description 10/23/2024 9:30 AM CDT Office Visit [facility] Neurology [facility] [address] [place] [address] [place] [address] [place] [address] Johnny Penn MD [address] [place], [place] [address] 11/28/2024 7:45 AM CDT Virtual Visit [facility] Gastroenterology [facility] [address] [place] [address] Meredith Carrera PA-C [address] [place] [address] [phone] documented as of this encounter Visit Diagnoses Not on filedocumented in this encounter Additional Health Concerns Infection Onset Date Last Indicated Resolved Time Rule Out COVID-19 07/30/2020 07/30/202007/3007/30/2020 7:11 PM WOODWIND INSTRUMENT REPAIRER Rule Out COVID-19 08/30/2020 08/30/2020 08/30/2020 5:05 PM WOODWIND INSTRUMENT REPAIRER Rule Out COVID-19 09/24/2020 09/24/2020 09/24/2020 9:24 AM CDT Rule Out COVID-19 11/05/2020 11/05/2020 11/06/2020 1:09 PM CDT Rule Out COVID-19 05/11/2021 05/11/2021 05/13/2021 10:18 AM CDT Rule Out COVID-19 07/13/2021 07/13/2021 07/14/2021 3:04 PM WOODWIND INSTRUMENT REPAIRER Rule Out COVID-19 07/18/2021 07/18/2021 07/20/2021 1:56 PM WOODWIND INSTRUMENT REPAIRER COVID-19 07/18/2021 07/18/2021 08/08/2021 11:3 9 PM WOODWIND INSTRUMENT REPAIRER Rule Out COVID-19 12/18/2021 12/18/2021 12/19/2021 11:34 AM CDT Rule Out COVID-19 02/24/2022 02/24/2022 02/25/2022 1:08 PM CDT Rule Out COVID-19 04/26/2022 04/26/2022 04/26/2022 6:47 AM CDT Rule Out COVID-19 05/17/2022 05/17/2022 05/17/2022 10:20 PM WOODWIND INSTRUMENT REPAIRER Rule Out COVID-19 06/09/2022 06/09/2022 06/09/2022 9:35 AM WOODWIND INSTRUMENT REPAIRER COVID-19 06/09/2022 06/09/2022 06/30/2022 11:4 1 PM WOODWIND INSTRUMENT REPAIRER Rule Out COVID-19 11/10/2022 11/10/2022 11/11/2022 12:17 PM CDT Rule Out COVID-19 03/07/2023 03/07/2023 03/07/2023 1:20 PM CDT Rule Out COVID-19 12/26/2023 12/26/2023 12/26/2023 9:50 AM CDT Rule Out COVID-19 04/09/2024 04/09/202404/1004/10/2024 6:48 PM CDT Assessment Noted Time PHQ-9 Depression Total Score: 6 08/28/19 21 7:05 AM WOODWIND INSTRUMENT REPAIRER documented as of this encounter Care Teams Piece Maker Relationship Specialty Start Date End Date Marija Edgar APRN AIRCRAFT DETAIL DRAFTSPERSON [address] [place] [address] PCP - General Nurse Practitioner 04/30/20 04/14/23 Esha Grimm PA-C [address] [place] [phone] PCP - General Family Medicine 05/04/23 Lita Oseguera Personal Advocate & Liaison (PAL) 02/28/20 03/27/23 Rakesh Cid PA-C [address] [place] [address] Assigned PCP 03/02/20 06/07/20 [place] [address] [place] [address] Assigned OBGYN Provider 05/02/2005/09 Lesley Moody W Community Health Worker 05/30/2005/12 Kyara De La Fuente, RN Specialty Company Controller Neurology 06/04/20 03/05/21 Marija Edgar APRN AIRCRAFT DETAIL DRAFTSPERSON [address] [place] [address] Assigned PCP 06/08/20 04/29/23 Mynor Broussard MD [address] [facility] [address] [place] [address] Assigned Surgical Provider 06/01/20 11/28/21 Keisha Dotson MD [address] [place] [address] Assigned Neuroscience Provider 06/04/20 04/01/23 Mary Mejia Financial Resource Worker 08/07/20 08/21/20 Stacey Briones, [facility] Lead Company Controller Primary Care - CC 08/11/2012/30 Lesley Moody, [facility] Community Health Worker 08/11/2010/01 Mary Mejia Financial Resource Worker 09/02/20 10/06/20 Lita Oseguera Personal Advocate & Liaison (PAL) Family Medicine 09/10/20 09/21/20 Galo Burrell MD Assigned Heart and Vascular Provider 10/05/20 04/02/22 Cristina Wood Financial Resource Worker 10/07/20 10/14/20 Lesley Moody, [facility] Community Health Worker 10/23/2012/30 Meredith Bedoya Financial Resource Worker 10/23/20 11/23/20 Cristina Wood Financial Resource Worker 02/09/21 02/09/21 Diana Desir, [facility] [address] [place] [address] Pharmacist Pharmacist 04/17/21 Rain Galaviz PA-C [address] [place] [address] [place] [address] Physician Process Design Chemical Engineer Dermatology 04/28/21 Summer Lara MD [address] [place] [address] 600174 Assigned OBGYN Provider 05/10/2105/23 Summer Lara MD [address] [place] [address] Assigned OBGYN Provider 05/31/21 Summer Lara MD [address] [place] [address] Assigned OBGYN Provider 05/24/2105/30 Tavia Wyatt MD [address] [place] [address] Dermatology 07/14/21 Johnny Murillo MD [address] [place] [address] [address] [place] [address] Assigned Musculoskeletal Provider 08/30/21 03/17/22 Erica Farrell APRN AIRCRAFT DETAIL DRAFTSPERSON [address] [facility] [address] [place] [address] Nurse Practitioner Cardiovascular Disease 09/09/21 Teresita Bean, [facility] [address] [place] [phone] Pharmacist Pharmacist 09/24/21 09/29/21 Tavia Wyatt MD [address] [place] [address] 371010 Assigned Surgical Provider 11/29/21 05/07/22 Diana Desir, [facility] [address] [place] [address] Assigned MTM Pharmacist 01/02/22 Rich Barrett MD [address] [address] Physician Ophthalmology 01/21/22 Neil Kent MD [address] [place] [address] Dermatology 02/24/22 Roney Story DPM [address] [facility] [address] [place] [address] Assigned Musculoskeletal Provider 03/20/22 08/13/22 Erica Farrell APRN AIRCRAFT DETAIL DRAFTSPERSON [facility] [place] [address] Assigned Heart and Vascular Provider 04/03/22 04/16/22 Diana Desir, [facility] [address] [place] [address] Assigned MTM Pharmacist 04/07/22 Jelena David OD [address] [facility] [place] [address] Assigned Surgical Provider 05/08/22 10/08/22 Galo Burrell MD Assigned Heart and Vascular Provider 04/17/22 06/11/22 Livan Sharif MD [address] [place] [address] Cardiovascular Disease 05/14/22 Livan Sharif MD [address] [place] [address] Assigned Heart and Vascular Provider 06/12/22 07/23/22 Catherine Cm MD [address] [place] [address] Cardiovascular Disease 07/21/22 Valery Veronica, PAUcheC [address] [place] [address] 494455 Physician Process Design Chemical Engineer Dermatology 07/21/22 Catherine Cm MD [address] [place] [phone] Assigned Heart and Vascular Provider 07/24/22 11/05/22 Johnny Murillo MD [facility] [phone] Assigned Musculoskeletal Provider 08/14/22 10/08/22 Brea Quinn APRN AIRCRAFT DETAIL DRAFTSPERSON [address] [place] [address] 014185 Nurse Practitioner Dermatology 09/21/22 Brea Quinn APRN AIRCRAFT DETAIL DRAFTSPERSON [address] [place] [address] [place] [phone] Assigned Surgical Provider 10/09/22 05/01/24 [place] [address] [place] [address] Assigned Musculoskeletal Provider 10/09/22 05/01/24 Livan Sharif MD [address] [place] [id number] Assigned Heart and Vascular Provider 11/06/22 11/12/22 Catherine Cm MD [address] [place] [address] Assigned Heart and Vascular Provider 11/13/22 05/27/23 Sydnie Martinez RN Personal Advocate & Liaison (PAL) Family Medicine 03/28/23 07/31/23 Alfonso Renteria MD [address] [facility] [address] [place], [place] 564076 Assigned Neuroscience Provider 04/02/23 Cheng Todd PA-C [address] [place] [address] [phone] Assigned PCP 04/30/23 07/15/23 Radha Lomeli, [place]RLENE AIRCRAFT DETAIL DRAFTSPERSON [address] [place] [id number] Assigned Heart and Vascular Provider 05/28/23 Jelena David OD [address] [facility] [place] [address] Ophthalmology 06/15/23 Pao Joseph, VJ Personal Advocate & Liaison (PAL) Nurse 08/01/23 11/07/23 Esha Grimm PA-C [address] [place] [address] Assigned PCP 07/16/23 Valery Veronica PA-C [address] [place] [address] [phone] Physician Process Design Chemical Engineer Dermatology 09/19/23 Rey Tay MD [address] [place] [address] [phone] Gastroenterology 09/20/23 Rocky Zepeda DO [address] [place] [address] [phone] Physician Gastroenterology 09/20/23 Philip Dumont MD [address] [place] [address] 170845 Physician Ophthalmology 09/22/23 Meredith Carrera PA-C [address] [place] [address] 466235 Assigned Gastroenterology Provider 11/01/23 Neil Kent MD [address] [phone] Dermatology 11/02/23 [place] [address] [place] [address] Neurological Surgery 12/26/23 Audrey Waite PA-C 500 [place] [address] Physician Process Design Chemical Engineer Dermatology 02/28/24 Valery Veronica PA-C [address] [place] [address] Physician Process Design Chemical Engineer Dermatology 04/10/24 Herminia Hatch MD [address] [place] [address] [phone] Assigned Rheumatology Provider 07/02/24 documented as of this encounter
--- OUTSIDE RECORDS SUMMARY | 2024-07-22 20:49 | XMS_ITS | Encounter Summary ---
Author Organization [facility] Address [address] [place] [address] Care Team Providers Care Category Specialist Name Role Phone Rakesh Cid PA-C Primary Care Provider Lita Oseguera Unavailable Unavailable Rakesh Cid PA-C Unavailable [phone] Lita Oseguera Unavailable Unavailable Marija Edgar APRN SOLDERER ASSEMBLY REPAIR Primary Care Provider + Chanelle Mccann APRN CNM Unavailab le Lesley Moody CHW Unavailable Kyara De La Fuente RN Unavailable [phone] Marija Edgar APRN SOLDERER ASSEMBLY REPAIR Unavailable Mynor Broussard MD Unavailable [phone] Keisha Dotson MD Unavailable Mary Mejia Unavailable Unavailable Stacey Briones [facility] ADMINISTRATOR Unavailable [phone] Lesley Moody CHW Unavailable Mary Mejia Unavailable Unavailable Lita Oseguera Unavailable Unavailable Galo Burrell MD Unavailable Unavailable Cristina Wood Unavailable Bettinger, Lesley C CHW Unavailable Meredith Bedoya Unavailable Unavailable Cristina Wood Unavailable Diana Desir [facility] Unavailable [phone] Rain Galaviz PA-C Unavailable Summer Lara MD Unavailable [phone] Summer Lara MD Unavailable [phone] Summer Lara MD Unavailable [phone] Tavia Wyatt MD Unavailable [phone] Johnny Murillo MD Unavailable +[phone] Erica Farrell APRN SOLDERER ASSEMBLY REPAIR Unavailable + Teresita Bean [facility] Unavailable Tavia Wyatt MD Unavailable [phone] Diana Desir [facility] Unavailable [phone] Rich Barrett MD Unavailable [phone] Neil Kent MD Unavailable Roney Story DPM Unavailable [phone] Erica Farrell APRN SOLDERER ASSEMBLY REPAIR Unavailable Diana Desir [facility] Unavailable [phone] Jelena David OD Unavailable Galo Burrell MD Unavailable Unavailable Livan Sharif MD Unavailable + Livan Sharif MD Unavailable + Catherine Cm MD Unavailable + Valery Veronica PA-C Unavailable [phone] Catherine Cm MD Unavailable + Johnny Murillo MD Unavailable +[phone]- Brea Quinn APRN SOLDERER ASSEMBLY REPAIR Unavailable [phone] Brea Quinn RN CLINICAL COORDINATOR SOLDERER ASSEMBLY REPAIR Unavailable Jose Francisco Johnson MD Unavailable Livan Sharif MD Unavailable Catherine Cm MD Unavailable + Sydnie Martinez RN Unavailable Unavailable Alfonso Renteria MD Unavailable [phone] Esha Grimm PA-C Primary Care Provider Cheng Todd PA-C Unavailable [phone] Radha Lomeli RN CLINICAL COORDINATOR SOLDERER ASSEMBLY REPAIR Unavailable Jelena David Radha OD Unavailable Pao Joseph RN Unavailable Unavailable Esha Grimm PA-C Unavailable [phone] Valery Veronica PA-C Unavailable [phone] Rey Tay MD Unavailable Rocky Zepeda DO Unavailable Philip Dumont MD Unavailable [phone] Meredith Carrera PA-C Unavailable Neil Kent MD Unavailable Juan Pablo Emmanuel MD Unavailable Audrey Waite PA-C Unavailable Valery Veronica PA-C Unavailable Herminia Hatch MD Unavailable Encounter Details Date Type Department Care Team (Late st Contact Info) Description 04/28/2020 [facility] [address] [address] Rakesh Cid PA-C [address] [place] [address] Social History Tobacco Use Types Packs/Day Years [...] PM CDT Legal Sex Female 4:13 AM APARTMENT MAINTENANCE MANAGER Gender Identity Female 03/02/2021 5:45 PM [...] CDT Office Visit [facility] Neurology [address], [address] [place] [address] [place] [address] [place], [place] [phone] Johnny Penn MD [address] [place] [address] 11/28/2024 7:45 AM CDT Virtual Visit [facility] [address] [place] [address] Meredith Carrera PA-C [address] [place] [address] [phone] documented as of this encounter Visit Diagnoses Not on filedocumented in this encounter Additional Health Concerns Infection Onset Date Last Indicated Resolved Time Rule Out COVID-19 07/30/2020 07/30/2020 07/30/2020 7:11 PM APARTMENT MAINTENANCE MANAGER Rule Out COVID-19 08/30/2020 08/30/2020 08/30/2020 5:05 PM APARTMENT MAINTENANCE MANAGER Rule Out COVID-19 09/24/2020 09/24/2020 09/24/2020 9:24 AM CDT Rule Out COVID-19 11/05/2020 11/05/2020 11/06/2020 1:09 PM CDT Rule Out COVID-19 05/11/2021 05/11/2021 05/13/2021 10:18 AM CDT Rule Out COVID-19 07/13/2021 07/13/2021 07/14/2021 3:04 PM APARTMENT MAINTENANCE MANAGER Rule Out COVID-19 07/18/2021 07/18/2021 07/20/2021 1:56 PM APARTMENT MAINTENANCE MANAGER COVID-19 07/18/2021 07/18/2021 08/08/2021 11:3 9 PM APARTMENT MAINTENANCE MANAGER Rule Out COVID-19 12/18/2021 12/18/2021 12/19/2021 11:34 AM CDT Rule Out COVID-19 02/24/2022 02/24/2022 02/25/2022 1:08 PM CDT Rule Out COVID-19 04/26/2022 04/26/2022 04/26/2022 6:47 AM CDT Rule Out COVID-19 05/17/2022 05/17/2022 05/17/2022 10:20 PM APARTMENT MAINTENANCE MANAGER Rule Out COVID-19 06/09/2022 06/09/2022 06/09/2022 9:35 AM APARTMENT MAINTENANCE MANAGER COVID-19 06/09/2022 06/09/2022 06/30/2022 11:4 1 PM APARTMENT MAINTENANCE MANAGER Rule Out COVID-19 11/10/2022 11/10/2022 11/11/2022 12:17 PM CDT Rule Out COVID-19 03/07/2023 03/07/2023 03/07/2023 1:20 PM CDT Rule Out COVID-19 12/26/2023 12/26/202312/2512/26/2023 9:50 AM CDT Rule Out COVID-19 04/09/2024 04/09/2024 04/10/2024 6:48 PM CDT Assessment Noted Time PHQ-9 Depression Total Score: 12 020 2:40 PM CDT documented as of this encounter Care Teams Category Specialist Relationship Specialty Start Date End Date Rakesh Cid PA-C PCP - General Physician Resourcing Consultant - Medical 05/14/19 04/29/20 Marija Edgar APRN SOLDERER ASSEMBLY REPAIR [address] [place], [place] [phone] PCP - General Nurse Practitioner 04/30/20 04/14/23 Esha Grimm PA-C [address] [place] [phone] PCP - General Family Medicine 05/04/23 Lita Oseguera Personal Advocate & Liaison (PAL) 02/28/20 03/27/23 Rakesh Cid PA-C [address] [place] [address] Assigned PCP 03/02/20 06/07/20 Lita Oseguera Personal Advocate & Liaison (PAL) 04/07/20 04/29/20 Chanelle Mccann APRN CNM [address] [place] [address] [id number] Assigned OBGYN Provider 05/02/2005/09 Lesley Moody, CHW Community Health Worker 05/30/2005/12 Kyara De La Fuente, RN Specialty Slide Forming Machine Tender Neurology 06/04/20 03/05/21 Marija Edgar APRN SOLDERER ASSEMBLY REPAIR [address] [place] [address] Assigned PCP 06/08/20 04/29/23 Mynor Broussard MD [address] [address] Assigned Surgical Provider 06/01/20 11/28/21 Keisha Dotson MD [address] [place] [address] Assigned Neuroscience Provider 06/04/20 04/01/23 Mary Mejia Financial Resource Worker 08/07/20 08/21/20 Stacey Briones, [facility] Lead Slide Forming Machine Tender Primary Care - CC 08/11/2012/30 Lesley [...] Worker 02/09/21 02/09/21 Diana Desir, [facility] [address] [place] [address] Pharmacist Pharmacist 04/17/21 Rain Galaviz PA-C [address] [place] [address] [place] [address] Physician Resourcing Consultant Dermatology 04/28/21 Summer Lara MD [address] [place] [address] Assigned OBGYN Provider 05/10/2105/23 Summer Lara MD [address] [place] [address] [phone] Assigned OBGYN Provider 05/31/21 Summer Lara MD [address] [place] [address] [id number] Assigned OBGYN Provider 05/24/2105/30 Tavia Wyatt MD [address] [place] [address] 027214 Dermatology 07/14/21 Johnny Murillo MD [address] [place] [address] Assigned Musculoskeletal Provider 08/30/21 03/17/22 Erica Farrell APRN SOLDERER ASSEMBLY REPAIR [address] [facility] [address] [place] [address] Nurse Practitioner Cardiovascular Disease 09/09/21 Teresita Bean [facility] [address] [place] [phone] Pharmacist Pharmacist 09/24/21 09/29/21 Tavia Wyatt MD [address] [place] [address] Assigned Surgical Provider 11/29/21 05/07/22 Diana Desir, [facility] [address] [place] [address] Assigned MTM Pharmacist 01/02/22 Rich Barrett MD [address] [id number] Physician Ophthalmology 01/21/22 Neil Kent MD [address] [place], [place] 175175 Dermatology 02/24/22 [place] [address] [facility] [address] [place] [address] Assigned Musculoskeletal Provider 03/20/22 08/13/22 Erica Farrell APRN SOLDERER ASSEMBLY REPAIR [address] [place] [address] Assigned Heart and Vascular Provider 04/03/22 04/16/22 Diana Desir, [facility] [address] [place] [address] Assigned MTM Pharmacist 04/07/22 Jelena David OD [address] [place] [address] Assigned Surgical Provider 05/08/22 10/08/22 Galo Burrell MD Assigned Heart and Vascular Provider 04/17/22 06/11/22 Livan Sharif MD [address] [place] [address] Cardiovascular Disease 05/14/22 Livan Sharif MD [address] [place] [address] Assigned Heart and Vascular Provider 06/12/22 07/23/22 Catherine Cm MD [address] [place] [address] Cardiovascular Disease 07/21/22 Valery Veronica, PA-C [address] [place] [address] Physician Resourcing Consultant Dermatology 07/21/22 Catherine Cm MD [address] [place] [address] Assigned Heart and Vascular Provider 07/24/22 11/05/22 Johnny Murillo MD [address] [facility] [address] [place] [address] Assigned Musculoskeletal Provider 08/14/22 10/08/22 Brea Quinn APRN SOLDERER ASSEMBLY REPAIR [address] [place] [address] Nurse Practitioner Dermatology 09/21/22 Brea Quinn APRN SOLDERER ASSEMBLY REPAIR [address] [facility] [place] [address] Assigned Surgical Provider 10/09/22 05/01/24 [place] [address] [facility] [address] [place] [address] Assigned Musculoskeletal Provider 10/09/22 05/01/24 Livan Sharif MD [address] [facility] [address] [place] [address] Assigned Heart and Vascular Provider 11/06/22 11/12/22 Catherine Cm MD [address] [facility] [address] [place] [address] Assigned Heart and Vascular Provider 11/13/22 05/27/23 Sydnie Martinez RN Personal Advocate & Liaison (PAL) Family Medicine 03/28/23 07/31/23 Alfonso Renteria MD [address] [facility] [address] [place] [address] Assigned Neuroscience Provider 04/02/23 Cheng Todd PA-C [address] [place] [address] Assigned PCP 04/30/23 07/15/23 Radha Lomeli APRN SOLDERER ASSEMBLY REPAIR [address] [place], [place] 30[address] Assigned Heart and Vascular Provider 05/28/23 Jelena David OD [address] [place] [address] MD Ophthalmology 06/15/23 Pao Joseph, VJ Personal Advocate & Liaison (PAL) Nurse 08/01/23 11/07/23 Esha Grimm PA-C [address] [place] [address] Assigned PCP 07/16/23 Valery Veronica PA-C [address] [place] [address] [phone] Physician Resourcing Consultant Dermatology 09/19/23 Rey Tay MD [address] [place] [address] [id number] Gastroenterology 09/20/23 Rocky Zepeda DO [address] [place] [address] 698825 Physician Gastroenterology 09/20/23 Philip Dumont MD [address] [place] [address] 036855 Physician Ophthalmology 09/22/23 Meredith Carrera PA-C [address] [place] [address] Assigned Gastroenterology Provider 11/01/23 Neil Kent MD [address] [address] Dermatology 11/02/23 [place] [address] [place] [address] Neurological Surgery 12/26/23 Audrey Waite PA-C [address] [place] [address] Physician Resourcing Consultant Dermatology 02/28/24 Valery Veronica PA-C 670230 [address], [place] [address] Physician Resourcing Consultant Dermatology 04/10/24 Herminia Hatch MD [facility] [place] [address] Assigned Rheumatology Provider 07/02/24 documented as of this encounter
--- OUTSIDE RECORDS SUMMARY | 2024-07-22 20:49 | XMS_ITS | Encounter Summary ---
Author Organization [facility] Address [address] [place] [address] Care Team Providers Care Wig Sales Consultant Name Role Phone Rakesh Cid PA-C Unavailable [phone] Rakesh Cid PA-C Primary Care Provider [phone] Lita Oseguera Unavailable Unavailable Rakesh Cid PA-C Unavailable [phone] Isaura Lamar RN Unavailable Unavailable Lita Oseguera Unavailable Unavailable Marija Edgar APRN EQUAL OPPORTUNITY REPRESENTATIVE Primary Care Provider + Chanelle Mccann APRN CN Unavailab le Lesley Moody CHW Unavailable Kyara De La Fuente RN Unavailable [phone] Marija Edgar APRN EQUAL OPPORTUNITY REPRESENTATIVE Unavailable [phone] Mynor Broussard MD Unavailable [phone] Keisha Dotson MD Unavailable Mary Mejia Unavailable Unavailable Stacey Briones SOUR BLE[employer]ING PLEATER Unavailable [phone] Lesley Moody CHW Unavailable Mary Mejia Unavailable Unavailable Lita Oseguera Unavailable Unavailable Galo Burrell MD Unavailable Unavailable Cristina Wood Unavailable Lesley Moody [facility] Unavailable Meredith Bedoya Unavailable Unavailable Cristina Wood Unavailable Thang Diana [place] [facility] Unavailable [phone] Rain GalavizC Unavailable Summer Lara MD Unavailable [phone] Summer Lara MD Unavailable [phone] Summer Lara MD Unavailable [phone] Tavia Wyatt MD Unavailable [phone] Johnny Murillo MD Unavailable Erica Farrell APRN EQUAL OPPORTUNITY REPRESENTATIVE Unavailable Teresita Bean [facility] Unavailable Tavia Wyatt MD Unavailable [phone] Diana Desir [facility] Unavailable [phone] Rich Barrett MD Unavailable [phone] Neil Kent MD Unavailable Roney Story DPM Unavailable Erica Farrell NEONATAL NURSE PRACTITIONER EQUAL OPPORTUNITY REPRESENTATIVE Unavailable + Diana Desir [facility] Unavailable [phone] Jelena David OD Unavailable Galo Burrell MD Unavailable Unavailable Livan Sharif MD Unavailable + Livan Sharif MD Unavailable + Catherine Cm MD Unavailable + Valery VeronicaC Unavailable [phone] Catherine Cm MD Unavailable + Johnny Murillo MD Unavailable [phone] Brea Quinn NEONATAL NURSE PRACTITIONER EQUAL OPPORTUNITY REPRESENTATIVE Unavailable [phone] Brea Quinn NEONATAL NURSE PRACTITIONER EQUAL OPPORTUNITY REPRESENTATIVE Unavailable [phone] Jose Francisco Johnson MD Unavailable Livan Sharif MD Unavailable Catherine Cm MD Unavailable + Sydnie Martinez RN Unavailable Unavailable Alfonso Renteria MD Unavailable Esha Grimm PA-C Primary Care Provider Cheng Todd PA-C Unavailable Radha Lomeli NEONATAL NURSE PRACTITIONER EQUAL OPPORTUNITY REPRESENTATIVE Unavailable [phone] Jelena David OD Unavailable [phone] Pao Joseph RN Unavailable Unavailable Esha Grimm PA-C Unavailable [phone] Valery Veronica PA-C Unavailable Rey Tay MD Unavailable Rocky Zepeda DO Unavailable Philip Dumont MD Unavailable Meredith Carrera PA-C Unavailable Neil Kent MD Unavailable Juan Pablo Emmanuel MD Unavailable Audrey Waite PA-C Unavailable Valery Veronica PA-C Unavailable [phone] Herminia Hatch MD Unavailable Reason for Visit * Reason Onset Date Comments Appointment 02/13/2020 Anxiety Encounter Details Date Type Department Care Team (Late st Contact Info) Description 02/13/2020 MyC Medical Advice [address] [address] Rakesh Cid PA-C [address] [place] [address] Appointment (Anxiety) Social History Tobacco Use Types [...] PM CDT Legal Sex Female 4:13 AM HOSE OPERATOR Gender Identity Female 03/02/2021 5:45 PM CDT Sexual Orientation Straight 02/28/2020 12 :51 AM CDT documented as of this encounter Miscellaneous Notes * Telephone Encounter - Agatha Forrester RN - 02/15/2020 2:28 PM CDT Modeliniat message sent to patient to schedule a [...] [facility] [address] [facility], [address] [place] [address] [place] [address] [place], [place] [address] Johnny Penn MD [address] [place] [address] 11/28/2024 7:45 AM CDT Virtual Visit [facility] [address] 4th [place] [phone] Meredith Carrera PA-C [address] [place] [address] [phone] documented as of this encounter Visit Diagnoses Not on filedocumented in this encounter Additional Health Concerns Infection Onset Date Last Indicated Resolved Time Rule Out COVID-19 07/30/2020 07/30/2020 07/30/2020 7:11 PM HOSE OPERATOR Rule Out COVID-19 08/30/2020 08/30/2020 08/30/2020 5:05 PM HOSE OPERATOR Rule Out COVID-19 09/24/2020 09/24/2020 09/24/2020 9:24 AM CDT Rule Out COVID-19 11/05/2020 11/05/2020 11/06/2020 1:09 PM CDT Rule Out COVID-19 05/11/2021 05/11/2021 05/13/2021 10:18 AM CDT Rule Out COVID-19 07/13/2021 07/13/2021 07/14/2021 3:04 PM HOSE OPERATOR Rule Out COVID-19 07/18/2021 07/18/2021 07/20/2021 1:56 PM HOSE OPERATOR COVID-19 07/18/2021 07/18/2021 08/08/2021 11:3 9 PM HOSE OPERATOR Rule Out COVID-19 12/18/2021 12/18/2021 12/19/2021 11:34 AM CDT Rule Out COVID-19 02/24/2022 02/24/2022 02/25/2022 1:08 PM CDT Rule Out COVID-19 04/26/2022 04/26/2022 04/26/2022 6:47 AM CDT Rule Out COVID-19 05/17/2022 05/17/2022 05/17/2022 10:20 PM HOSE OPERATOR Rule Out COVID-19 06/09/2022 06/09/2022 06/09/2022 9:35 AM HOSE OPERATOR COVID-19 06/09/2022 06/09/2022 06/30/2022 11:4 1 PM HOSE OPERATOR Rule Out COVID-19 11/10/2022 11/10/2022 11/11/2022 12:17 PM CDT Rule Out COVID-19 03/07/2023 03/07/2023 03/07/2023 1:20 PM CDT Rule Out COVID-19 12/26/2023 12/26/2023 12/26/2023 9:50 AM CDT Rule Out COVID-19 04/09/2024 04/09/2024 04/10/2024 6:48 PM CDT Assessment Noted Time PHQ-9 Depression Total Score: 1 09/11/19 20 1:42 PM HOSE OPERATOR documented as of this encounter Care Teams Wig Sales Consultant Relationship Specialty Start Date End Date Rakesh Cid PA-C [address] [facility] [address] [place] [address] PCP - General Physician Dean Of Education - Medical 05/14/19 04/29/20 Marija Edgar APRN CNP PCP - General Nurse Practitioner 04/30/20 04/14/23 Esha Grimm PA-C [address] [place] [id number] PCP - General Family Medicine 05/04/23 Rakesh Cid PA-C [address] [place] [address] Assigned PCP 05/06/19 03/01/20 Lita Oseguera Personal Advocate & Liaison (PAL) 02/28/20 03/27/23 Rakesh Cid PA-C [address] [place] [address] Assigned PCP 03/02/20 06/07/20 Isaura Lamar RN Personal Advocate & Liaison (PAL) Family Practice 04/03/20 04/06/20 Lita Oseguera Personal Advocate & Liaison (PAL) 04/07/20 04/29/20 [place] [address] [address] [address] [place], [place] [address] Assigned OBGYN Provider 05/02/2005/09 Lesley Moody, W Community Health Worker 05/30/2005/12 Kyara De La Fuente, RN Specialty Beehive Kiln Charcoal Burner Neurology 06/04/20 03/05/21 Marija Edgar APRN EQUAL OPPORTUNITY REPRESENTATIVE Assigned PCP 06/08/20 04/29/23 Mynor Broussard MD [address] [facility] [address] [place] [address] Assigned Surgical Provider 06/01/20 11/28/21 Keisha Dotson MD [address] [place] [address] Assigned Neuroscience Provider 06/04/20 04/01/23 Aditi Mejiandra Financial Resource Worker 08/07/20 08/21/20 Stacey Briones, [facility] Lead [employer] Charcoal Burner Primary Care - CC 08/11/2012/30 Lesley Moody, [facility] Community Health Worker 08/11/2010/01 Mary [...] 02/09/21 Diana Desir, [facility] [address] [place] [address] Pharmacist Pharmacist 04/17/21 Rain Galaviz PA-C [address] [place] [address] DR ARRIOLA [facility] [place] [phone] Physician Dean Of Education Dermatology 04/28/21 Summer Lara MD [address], [place] [phone] Assigned OBGYN Provider 05/10/2105/23 Summer Lara MD [address] [place] [address] [phone] Assigned OBGYN Provider 05/31/21 2 Summer Lara MD [address] [place] [address] Assigned OBGYN Provider 05/24/2105/30 Tavia Wyatt MD [address] [place] [address] Dermatology 07/14/21 Johnny Murillo MD [facility] [place] [facility] [place] [address] [place] [address] Assigned Musculoskeletal Provider 08/30/21 03/17/22 Erica Farrell APRN EQUAL OPPORTUNITY REPRESENTATIVE [address] [facility] [address] [place] [address] Nurse Practitioner Cardiovascular Disease 09/09/21 Teresita Bean [facility] [address] [place] [address] Pharmacist Pharmacist 09/24/21 09/29/21 Tavia Wyatt MD [address] [place] [address] Assigned Surgical Provider 11/29/21 05/07/22 Diana Desir, [facility] [address] [place] [address] Assigned MTM Pharmacist 01/02/22 Rich Barrett MD [address] [address] Physician Ophthalmology 01/21/22 Neil Kent MD [address] [place] [address] Dermatology 02/24/22 Roney Story DPM [address] [facility] [address] [place] [address] Assigned Musculoskeletal Provider 03/20/22 08/13/22 Erica Farrell APRN EQUAL OPPORTUNITY REPRESENTATIVE [address] [place] [address] Assigned Heart and Vascular Provider 04/03/22 04/16/22 Diana Desir, [facility] [address] [place] [address] Assigned MTM Pharmacist 04/07/22 Jelena David OD [address] [facility] [place] [address] Assigned Surgical Provider 05/08/22 10/08/22 Galo Burrell MD Assigned Heart and Vascular Provider 04/17/22 06/11/22 Livan Sharif MD [address] , [facility] [address] [place] [id number] Cardiovascular Disease 05/14/22 Livan Sharif MD [address], [facility] [place] [address] Assigned Heart and Vascular Provider 06/12/22 07/23/22 Catherine Cm MD [address] [facility] [place] [address] Cardiovascular Disease 07/21/22 Valery Veronica, PAUcheC [address] [place] [address] [phone] Physician Dean Of Education Dermatology 07/21/22 Catherine Cm MD [address] [place] [address] [place] 2[address] Assigned Heart and Vascular Provider 07/24/22 11/05/22 Johnny Murillo MD [address] [place] [address] 335644 Assigned Musculoskeletal Provider 08/14/22 10/08/22 Brea Quinn APRN EQUAL OPPORTUNITY REPRESENTATIVE [address] [place] [address] [phone] Nurse Practitioner Dermatology 09/21/22 Brea Quinn APRN EQUAL OPPORTUNITY REPRESENTATIVE [address] [place] [address] ENMA DOE [id number] Assigned Surgical Provider 10/09/22 05/01/24 [place] [address] [place] [address] 690317 Assigned Musculoskeletal Provider 10/09/22 05/01/24 Livan Sharif MD [address], [facility] [address] [place] [address] Assigned Heart and Vascular Provider 11/06/22 11/12/22 Catherine Cm MD [address] [facility] [address] [place] [address] Assigned Heart and Vascular Provider 11/13/22 05/27/23 Sydnie Martinez, RN Personal Advocate & Liaison (PAL) Family Medicine 03/28/23 07/31/23 Alfonso Renteria MD [address] [facility] [address] [place] [address] Assigned Neuroscience Provider 04/02/23 Cheng Todd PA-C [address] [place] [address] [id number] Assigned PCP 04/30/23 07/15/23 Radha Lomeli, ARLENE EQUAL OPPORTUNITY REPRESENTATIVE [address] [place] [address] Assigned Heart and Vascular Provider 05/28/23 Jelena David OD [address] [facility] [place] [address] Ophthalmology 06/15/23 Pao Joseph, VJ Personal Advocate & Liaison (PAL) Nurse 08/01/23 11/07/23 Esha Grimm PAUcheC [address] [place] [address] Assigned PCP 07/16/23 Valery Veronica PA-C [address] [place] [address] Physician Dean Of Education Dermatology 09/19/23 Rey Tay MD [address] [place], [place] 1557[address] MD Gastroenterology 09/20/23 Rocky Zepeda DO [address] [place] [address] 887315 Physician Gastroenterology 09/20/23 Philip Dumont MD [address] [place] [address] [phone] Physician Ophthalmology 09/22/23 Meredith Carrera PA-C [address] [place], [place] 5425[address] Assigned Gastroenterology Provider 11/01/23 Neil Kent MD [address] [address] Dermatology 11/02/23 [place] [address] [facility] [place], [place] [address] Neurological Surgery 12/26/23 Audrey Waite PA-C [address] [place] [address] Physician Dean Of Education Dermatology 02/28/24 Valery Veronica PA-C [address] [place] [address] Physician Dean Of Education Dermatology 04/10/24 Herminia Hatch MD [address] [place] [address] Assigned Rheumatology Provider 07/02/24 documented as of this encounter
--- OUTSIDE RECORDS SUMMARY | 2024-07-22 20:49 | XMS_ITS | Encounter Summary ---
Author Organization [facility] Address [address] [place] [address] Care Team Providers Care Transmitter Supervisor Name Role Phone Rakesh Cid PA-C Unavailable [phone] Rakesh Cid PA-C Primary Care Provider [phone] Lita Oseguera Unavailable Unavailable Rakesh Cid PA-C Unavailable [phone] Isaura Lamar RN Unavailable Unavailable Lita Oseguera Unavailable Unavailable Marija Edgar APRN LABORER Primary Care Provider + Chanelle Mccann APRN CN Unavailab le Lesley Moody CHW Unavailable Kyara De La Fuente RN Unavailable [phone] Marija Edgar APRN LABORER Unavailable [phone] Mynor Broussard MD Unavailable [phone] Keisha Dotson MD Unavailable Mary Mejia Unavailable Unavailable Stacey Briones INFORMATION RESOURCES DIRECTOR Unavailable [phone] Lesley Moody CHW Unavailable [phone] Mary Mejia Unavailable Unavailable Lita Oseguera Unavailable Unavailable Galo Burrell MD Unavailable Unavailable Cristina Wood Unavailable Lesley Modoy [facility] Unavailable Meredith Bedoya Unavailable Unavailable Cristina Wood Unavailable Thang Diana [place] [facility] Unavailable [phone] Rain GalavizC Unavailable Summer Lara MD Unavailable [phone] Summer Lara MD Unavailable [phone] Summer Lara MD Unavailable [phone] Tavia Wyatt MD Unavailable [phone] Johnny Murillo MD Unavailable Erica Farrell APRN LABORER Unavailable Teresita Bean [facility] Unavailable Tavia Wyatt MD Unavailable [phone] Diana Desir [facility] Unavailable [phone] Rich Barrett MD Unavailable [phone] Neil Kent MD Unavailable Roney Story DPM Unavailable Erica Farrell BOILERMAKER FITTER LABORER Unavailable + Diana Desir [facility] Unavailable [phone] Jelena David OD Unavailable Galo Burrell MD Unavailable Unavailable Livan Sharif MD Unavailable + Livan Sharif MD Unavailable + Catherine Cm MD Unavailable + Valery VeronicaC Unavailable [phone] Catherine Cm MD Unavailable + Johnny Murillo MD Unavailable [phone] Brea Quinn BOILERMAKER FITTER LABORER Unavailable [phone] Brea Quinn BOILERMAKER FITTER LABORER Unavailable [phone] Jose Francisco Johnson MD Unavailable Livan Sharif MD Unavailable Catherine Cm MD Unavailable + Sydnie Martinez RN Unavailable Unavailable Alfonso Renteria MD Unavailable Esha Grimm PA-C Primary Care Provider Cheng Todd PA-C Unavailable Radha Lomeli BOILERMAKER FITTER LABORER Unavailable Jelena David OD Unavailable [phone] Pao Joseph RN Unavailable Unavailable Esha Grimm PA-C Unavailable [phone] Valery Veronica PA-C Unavailable Rey Tay MD Unavailable Rocky Zepeda DO Unavailable Philip Dumont MD Unavailable Meredith Carrera PA-C Unavailable [phone] Neil Kent MD Unavailable Juan Pablo Emmanuel MD Unavailable Audrey Waite PA-C Unavailable Valery Veronica PA-C Unavailable Herminia Hatch MD Unavailable Encounter Details Date Type Department Care Team (Late st Contact Info) Description 02/27/[address], [address] [place] [address] Rakesh Cid PA-C [address] [place] [address] Social History Tobacco Use Types Packs/Day Years [...] PM CDT Legal Sex Female 4:13 AM TECHNICAL OPERATOR Gender Identity Female 03/02/2021 5:45 PM [...] message?: Yes at Home number on file [phone] (home) Violet Jeffrey Patient Air And Water Tester documented in this encounter Plan of Treatment Upcoming Encounters Date Type Department Care Team (Late st Contact Info) Description 10/23/2024 9:30 AM CDT Office Visit [facility] - [address], [address] [place] [address] [place] [address] [place] [address] Johnny Penn MD [address] [address] 11/28/2024 7:45 AM CDT Virtual Visit [facility] [address] [place] [phone] Meredith Carrera PA-C [address] [place] [phone] documented as of this encounter Visit Diagnoses Not on filedocumented in this encounter Additional Health Concerns Infection Onset Date Last Indicated Resolved Time Rule Out COVID-19 07/30/2020 07/30/2020 07/30/2020 7:11 PM TECHNICAL OPERATOR Rule Out COVID-19 08/30/2020 08/30/2020 08/30/2020 5:05 PM TECHNICAL OPERATOR Rule Out COVID-19 09/24/2020 09/24/2020 09/24/2020 9:24 AM CDT Rule Out COVID-19 11/05/2020 11/05/2020 11/06/2020 1:09 PM CDT Rule Out COVID-19 05/11/2021 05/11/2021 05/13/2021 10:18 AM CDT Rule Out COVID-19 07/13/2021 07/13/2021 07/14/2021 3:04 PM TECHNICAL OPERATOR Rule Out COVID-19 07/18/2021 07/18/2021 07/20/2021 1:56 PM TECHNICAL OPERATOR COVID-19 07/18/2021 07/18/2021 08/08/2021 11:3 9 PM TECHNICAL OPERATOR Rule Out COVID-19 12/18/2021 12/18/2021 12/19/2021 11:34 AM CDT Rule Out COVID-19 02/24/2022 02/24/2022 02/25/2022 1:08 PM CDT Rule Out COVID-19 04/26/2022 04/26/2022 04/26/2022 6:47 AM CDT Rule Out COVID-19 05/17/2022 05/17/2022 05/17/2022 10:20 PM TECHNICAL OPERATOR Rule Out COVID-19 06/09/2022 06/09/2022 06/09/2022 9:35 AM TECHNICAL OPERATOR COVID-19 06/09/2022 06/09/2022 06/30/2022 11:4 1 PM TECHNICAL OPERATOR Rule Out COVID-19 11/10/2022 11/10/2022 11/11/2022 12:17 PM CDT Rule Out COVID-19 03/07/2023 03/07/2023 03/07/2023 1:20 PM CDT Rule Out COVID-19 12/26/2023 12/26/2023 12/26/2023 9:50 AM CDT Rule Out COVID-19 04/09/2024 04/09/2024 04/10/2024 6:48 PM CDT Assessment Noted Time PHQ-9 Depression Total Score: 020 1:14 PM CDT documented as of this encounter Care Teams Transmitter Supervisor Relationship Specialty Start Date End Date Rakesh Cid PA-C [address] [address] [address] PCP - General Physician Cadmium Burner - Medical 05/14/19 04/29/20 Marija Edgar APRN CNP PCP - General Nurse Practitioner 04/30/20 04/14/23 Esha Grimm PA-C [address] [place] [phone] PCP - General Family Medicine 05/04/23 Rakesh Cid PA-C [address] [place] [address] Assigned PCP 05/06/19 03/01/20 Lita Oseguera Personal Advocate & Liaison (PAL) 02/28/20 03/27/23 Rakesh Cid PA-C [address] [facility] [place] [address] Assigned PCP 03/02/20 06/07/20 Isaura Lamar, RN Personal Advocate & Liaison (PAL) Family Practice 04/03/20 04/06/20 Lita Oseguera Personal Advocate & Liaison (PAL) 04/07/20 04/29/20 Chanelle Mccann APRN CNM [address] [place] [address] 200 [place] [address] Assigned OBGYN Provider 05/02/2005/09 Lesley Moody, [facility] Community Health Worker 05/30/2005/12 Kyara De La Fuente, RN Specialty Laborer [employer] Neurology 06/04/20 03/05/21 Marija Edgar APRN LABORER Assigned PCP 06/08/20 04/29/23 Mynor Broussard MD [address] [facility] 500 [place] [address] Assigned Surgical Provider 06/01/20 11/28/21 Keisha Dotson MD 9 [place] [address] Assigned Neuroscience Provider 06/04/20 04/01/23 Mary Mejia Financial Resource Worker 08/07/20 08/21/20 Stacey Briones, [facility] Lead Laborer [employer] Primary Care - CC 08/11/2012/30 Lesley Moody, [...] Cristina Wood Financial Resource Worker 02/09/21 02/09/21 iDana Desir, [facility] [place], [place] [phone] Pharmacist Pharmacist 04/17/21 Rain Galaviz PA-C [address] [place] [address] [address] [place] [place], [place] [phone] Physician Cadmium Burner Dermatology 04/28/21 Summer Lara MD [address] [place] [address] Assigned OBGYN Provider 05/10/2105/23 Summer Lara MD [address] [place] [address] Assigned OBGYN Provider 05/31/21 2 Summer Lara MD [address] [facility] [address] [place], [place] [address] Assigned OBGYN Provider 05/24/2105/30 Tavia Wyatt MD [address] [facility] [place] [address] Dermatology 07/14/21 Johnny Murillo MD [address] [place], [place] [address] Assigned Musculoskeletal Provider 08/30/21 03/17/22 Erica Farrell APRN LABORER [address] [facility] [address] [place] [address] Nurse Practitioner Cardiovascular Disease 09/09/21 Teresita Bean [facility] [address] [place], [place] [phone] Pharmacist Pharmacist 09/24/21 09/29/21 Tavia Wyatt MD [address] [place] [address] Assigned Surgical Provider 11/29/21 05/07/22 Diana Desir, [facility] [address] [place] [address] Assigned MTM Pharmacist 01/02/22 Rich Barrett MD [address] [address] Physician Ophthalmology 01/21/22 Neil Kent MD 500 [place] [address] Dermatology 02/24/22 Roney Story DPM [address] [facility] [address] [place] [address] Assigned Musculoskeletal Provider 03/20/22 08/13/22 Erica Farrell APRN LABORER [address] [place] [address] Assigned Heart and Vascular Provider 04/03/22 04/16/22 [facility] [address] [place] [address] Assigned MTM Pharmacist 04/07/22 Jelena David OD [address] [facility] [place] [address] Assigned Surgical Provider 05/08/22 10/08/22 Galo Burrell MD Assigned Heart and Vascular Provider 04/17/22 06/11/22 Livan Sharif MD [address] [place] [address] Cardiovascular Disease 05/14/22 Livan Sharif MD [address] [place] [address] Assigned Heart and Vascular Provider 06/12/22 07/23/22 Catherine Cm MD [address] [place] [address] [place] [address] Cardiovascular Disease 07/21/22 Valery Veronica, PAUcheC 909 [place] [address] Physician Cadmium Burner Dermatology 07/21/22 Catherine Cm MD [address] [place] [address] [place] [address] Assigned Heart and Vascular Provider 07/24/22 11/05/22 Johnny Murillo MD [address] [place] [address] Assigned Musculoskeletal Provider 08/14/22 10/08/22 Brea Quinn APRN LABORER [address] [place] [address] Nurse Practitioner Dermatology 09/21/22 Brea Quinn APRN LABORER [address] [place] [address] [facility] [place] [address] Assigned Surgical Provider 10/09/22 05/01/24 [place] [address] [place] [address] [place] [address] Assigned Musculoskeletal Provider 10/09/22 05/01/24 Livan Sharif MD [address] [place] [address] [place] [id number] Assigned Heart and Vascular Provider 11/06/22 11/12/22 Catherine Cm MD [address] [place] [address] Assigned Heart and Vascular Provider 11/13/22 05/27/23 Sydnie Martinez RN Personal Advocate & Liaison (PAL) Family Medicine 03/28/23 07/31/23 Alfonso Renteria MD [address] [facility] [address] [place], [place] [address] Assigned Neuroscience Provider 04/02/23 Chegn Todd PA-C [address] [place] [address] [id number] Assigned PCP 04/30/23 07/15/23 Radha Lomeli APRN LABORER [address] [place], [place] [address] Assigned Heart and Vascular Provider 05/28/23 Jelena David OD [address] [facility] [place] [address] Ophthalmology 06/15/23 Pao Joseph, VJ Personal Advocate & Liaison (PAL) Nurse 08/01/23 11/07/23 Esha Grimm PA-C [address] [place] [phone] Assigned PCP 07/16/23 Valery Veronica PA-C [address] [place] [address]376[address] Physician Cadmium Burner Dermatology 09/19/23 Rey Tay MD [address] [place], [place] [address] MD Gastroenterology 09/20/23 Rocky Zepeda DO 500 [place] [address] Physician Gastroenterology 09/20/23 Philip Dumont MD 516 [place] [address] Physician Ophthalmology 09/22/23 Meredith Carrera PA-C 9 [place] [address] Assigned Gastroenterology Provider 11/01/23 Neil Kent MD [address] [place] [address] [id number] Dermatology 11/02/23 [place] [address] [place] [address] Neurological Surgery 12/26/23 Audrey Waite PA-C [address] [place] [address] Physician Cadmium Burner Dermatology 02/28/24 Valery Veronica PA-C [address] [place] [address] Physician Cadmium Burner Dermatology 04/10/24 Herminia Hatch MD [address] [place] [address] Assigned Rheumatology Provider 07/02/24 documented as of this encounter
--- OUTSIDE RECORDS SUMMARY | 2024-07-22 20:49 | XMS_ITS | Clinical Summary ---
Author Organization [facility] Address [address] [place] [address] [address] [place] [address] Care Team Providers Care Oil Dispenser Name Role Phone Marija Edgar WEBLOGIC ADMINISTRATOR-LOKIE ENGINEER Primary Care Provider Provider, No Attributed RESOURCE Unavailable Unavailable Medications levETIRAcetam (KEPPRA) 500 mg tablet Take 500 mg by mouth 1 time per day 12/03/2021 Active LORazepam (ATIVAN) 0.5 mg tablet Take 0.5 mg by mouth 1 time a day as needed 01/14/2022 Active omeprazole (PRILOSEC) 40 mg capsule Take 40 mg by mouth 1 time per day 01/25/2022 Active PARoxetine (PAXIL) 40 mg tablet Take 40 mg by mouth every night at bedtime 01/05/2022 Active Vit-Fe Fumarate-FA ( VITAMIN, WITH FOLIC ACID 0.8 MG,) 27-0.8 MG TABS Take 1 tablet by mouth 1 time per day 06/04/2020 Active Social History Tobacco Use Types Packs/Day Years Used Date Smoking Tobacco: Never Assessed Comments Unknown Sex and Gender Information Value Date Recorded Sex Assigned at Not on file Legal Sex Female 4:51 PM CDT Gender Identity Not on file Sexual Orientation Not on file Last Filed Vital Signs Vital Sign Reading Time Taken Comments Blood Pressure 117/63 01/30/2022 5:44 PM CDT Pulse 89 01/30/2022 5:44 PM CDT Temperature 36.9 C (98.5 F) 01/30/2022 5:44 PM CDT Respiratory Rate 14 01/30/2022 5:44 PM CDT Oxygen Saturation 98% 01/30/2022 5:44 PM CDT Inhaled Oxygen Concentration - - Weight 74.8 kg (165 lb) 01/30/2022 5:44 PM CDT Height - - Body Mass Index - - Plan of Treatment Health Maintenance Due Date Last Done Comments Hepatitis C Screening 2000 HIV One Time Screening Ages 15-65 2015 HPV Vaccine (1 - 3-dose series) 2015 Hepatitis B Vaccine (1 of 3 - 19+ 3-dose series) 2019 Lipid Screening 2021 Pap Smear 2021 TDAP/TD VACCINE (1 - Tdap) 2021 Covid-19 Vaccine (1 - 2023- season) 2024 Influenza Vaccine (#1) 2024 1, 03/27/2020, 05/02/2019, Additional history exists Pneumococcal Vaccine (0-5yr; and At-risk 6-49yr) Aged Out No longer el igible based on patient's age to complete this topic Care Teams Oil Dispenser Relationship Specialty Start Date End Date Marija Edgar, WEBLOGIC ADMINISTRATOR-LOKIE ENGINEER [address] [place] [address] PCP - General WASHER AND CAPPER MACHINE OPERATOR - Family Medicine 01/30/22 Provider, No Attributed, RESOURCE [address] PCP - Attributed Provider 02/01/22
--- OUTSIDE RECORDS SUMMARY | 2024-07-22 20:49 | XMS_ITS | Clinical Summary ---
Author Organization [facility] Address [address] [address] Phone Care Team Providers Care Systems Project Manager Name Role Phone Unavailable Primary Care [...] 74 03/15/2016 1:30 AM CDT Temperature 36.4 C (97.6 F) 03/15/2016 12:30 AM CDT Respiratory Rate 14 03/15/2016 1:30 AM CDT Oxygen Saturation 98% 03/15/2016 1:30 AM CDT Inhaled Oxygen Concentration - - Weight - - Height - - Body Mass Index - - Plan of Treatment Not on file Insurance [employer]BS OTHER [place]
--- OUTSIDE RECORDS SUMMARY | 2024-07-22 20:49 | XMS_ITS | Encounter Summary ---
Author Organization [facility] Address [address] [place] [address] Care Team Providers Care Commercial Lending Vice President Name Role Phone Rakesh Cid PA-C Primary Care Provider Lita Oseguera Unavailable Unavailable Rakesh Cid PA-C Unavailable [phone] Lita Oseguera Unavailable Unavailable Marija Edgar APRN CRYSTAL GRINDER Primary Care Provider + Chanelle Mccann APRN CNM Unavailab le Lesley Moody CHW Unavailable [phone] Kyara De La Fuente RN Unavailable [phone] Marija Edgar APRN CRYSTAL GRINDER Unavailable [phone] Mynor Broussard MD Unavailable [phone] Keisha Dotson MD Unavailable Mary Mejia Unavailable Unavailable Stacey Briones SLUDGE FILTRATION OPERATOR Unavailable [phone] Lesley Moody CHW Unavailable Mary Mejia Unavailable Unavailable Lita Oseguera Unavailable Unavailable Galo Burrell MD Unavailable Unavailable Cristina Wood Unavailable Bettinger, Lesley C CHW Unavailable Meredith Bedoya Unavailable Unavailable Cristina Wood Unavailable Diana Desir [facility] Unavailable [phone] Rain Galaviz PA-C Unavailable Summer Lara MD Unavailable [phone] Summer Lara MD Unavailable [phone] Summer Lara MD Unavailable [phone] Tavia Wyatt MD Unavailable [phone] Johnny Murillo MD Unavailable +[phone]- Erica Farrell APRN CRYSTAL GRINDER Unavailable + Teresita Bean [facility] Unavailable Tavia Wyatt MD Unavailable [phone] Diana Desir [facility] Unavailable [phone] Rich Barrett MD Unavailable [phone] Neil Kent MD Unavailable Roney Story DPM Unavailable [phone] Erica Farrell APRN CRYSTAL GRINDER Unavailable Diana Desir [facility] Unavailable [phone] Jelena David OD Unavailable Galo Burrell MD Unavailable Unavailable Livan Sharif MD Unavailable + Livan Sharif MD Unavailable + Catherine Cm MD Unavailable + Valery Veronica PA-C Unavailable [phone] Catherine Cm MD Unavailable + Johnny Murillo MD Unavailable +[phone]- Brea Quinn APRN CRYSTAL GRINDER Unavailable [phone] Brea Quinn TIRE STRIPPER CRYSTAL GRINDER Unavailable Jose Francisco Johnson MD Unavailable Livan Sharif MD Unavailable Catherine Cm MD Unavailable + Sydnie Martinez RN Unavailable Unavailable Alfonso Renteria MD Unavailable [phone] Esha Grimm PA-C Primary Care Provider Cheng Todd PA-C Unavailable [phone] Radha Lomeli TIRE STRIPPER CRYSTAL GRINDER Unavailable Jelena David Radha OD Unavailable Pao Joseph RN Unavailable Unavailable Esha Grimm PA-C Unavailable [phone] Valery Veronica PA-C Unavailable Rey Tay MD Unavailable Rocky Zepeda DO Unavailable Philip Dumont MD Unavailable [phone] Meredith Carrera PA-C Unavailable Neil Kent MD Unavailable Juan Pablo Emmanuel MD Unavailable Audrey Waite PA-C Unavailable Valery Veronica PA-C Unavailable Herminia Hatch MD Unavailable Encounter Details Date Type Department Care Team (Late st Contact Info) Description 04/25/2020 [facility] [address] [address] Rakesh Cid PA-C [address] [place] [address] Social History Tobacco Use Types Packs/Day Years [...] PM CDT Legal Sex Female 4:13 AM BODY AND FENDER WORKER Gender Identity Female 03/02/2021 5:45 PM [...] Visit [facility] Neurology [address], [address] [place] [address] [place] [address] [place], [place] [id number] Johnny Penn MD [address] [place] [address] 11/28/2024 7:45 AM CDT Virtual Visit [facility] Gastroenterology Clinic [address] [place] [address] Meredith Carrera PA-C [address] [place] [address] [id number] documented as of this encounter Visit Diagnoses Not on filedocumented in this encounter Additional Health Concerns Infection Onset Date Last Indicated Resolved Time Rule Out COVID-19 07/30/2020 07/30/2020 07/30/2020 7:11 PM BODY AND FENDER WORKER Rule Out COVID-19 08/30/2020 08/30/2020 08/30/2020 5:05 PM BODY AND FENDER WORKER Rule Out COVID-19 09/24/2020 09/24/2020 09/24/2020 9:24 AM CDT Rule Out COVID-19 11/05/2020 11/05/2020 11/06/2020 1:09 PM CDT Rule Out COVID-19 05/11/2021 05/11/2021 05/13/2021 10:18 AM CDT Rule Out COVID-19 07/13/2021 07/13/2021 07/14/2021 3:04 PM BODY AND FENDER WORKER Rule Out COVID-19 07/18/2021 07/18/2021 07/20/2021 1:56 PM BODY AND FENDER WORKER COVID-19 07/18/2021 07/18/2021 08/08/2021 11:3 9 PM BODY AND FENDER WORKER Rule Out COVID-19 12/18/2021 12/18/2021 12/19/2021 11:34 AM CDT Rule Out COVID-19 02/24/2022 02/24/2022 02/25/2022 1:08 PM CDT Rule Out COVID-19 04/26/2022 04/26/2022 04/26/2022 6:47 AM CDT Rule Out COVID-19 05/17/2022 05/17/2022 05/17/2022 10:20 PM BODY AND FENDER WORKER Rule Out COVID-19 06/09/2022 06/09/2022 06/09/2022 9:35 AM BODY AND FENDER WORKER COVID-19 06/09/2022 06/09/2022 06/30/2022 11:4 1 PM BODY AND FENDER WORKER Rule Out COVID-19 11/10/2022 11/10/2022 11/11/2022 12:17 PM CDT Rule Out COVID-19 03/07/2023 03/07/2023 03/07/2023 1:20 PM CDT Rule Out COVID-19 12/26/2023 12/26/202312/2512/26/2023 9:50 AM CDT Rule Out COVID-19 04/09/2024 04/09/2024 04/10/2024 6:48 PM CDT Assessment Noted Time PHQ-9 Depression Total Score: 12 020 2:40 PM CDT documented as of this encounter Care Teams Commercial Lending Vice President Relationship Specialty Start Date End Date Rakesh Cid PA-C PCP - General Physician Embossed Or Impressed Lettering Painter - Medical 05/14/19 04/29/20 Marija Edgar APRN CRYSTAL GRINDER [address] [place], [place] [id number] PCP - General Nurse Practitioner 04/30/20 04/14/23 Esha Grimm PA-C [address] [place] [phone] PCP - General Family Medicine 05/04/23 Lita Oseguera Personal Advocate & Liaison (PAL) 02/28/20 03/27/23 Rakesh Cid PA-C [address] [place] [address] Assigned PCP 03/02/20 06/07/20 Ltia Oseguera Personal Advocate & Liaison (PAL) 04/07/20 04/29/20 Chanelle Mccann APRN CNM [address] [place] [address] [id number] Assigned OBGYN Provider 05/02/2005/09 Lesley Moody, CHW Community Health Worker 05/30/2005/12 Kyara De La Fuente, RN Specialty Special Education Director Neurology 06/04/20 03/05/21 Marija Edgar APRN CRYSTAL GRINDER [address] [place] [address] Assigned PCP 06/08/20 04/29/23 Mynor Broussard MD [address] [place] [address] Assigned Surgical Provider 06/01/20 11/28/21 Keisha Dotson MD [address] [place] [address] Assigned Neuroscience Provider 06/04/20 04/01/23 Mary Mejia Financial Resource Worker 08/07/20 08/21/20 Stacey Briones, [facility] Lead Special Education Director Primary Care - CC 08/11/2012/30 Lesley Moody, [facility] Community Health Worker 08/11/2010/01 Mary Mejia Financial Resource Worker 09/02/20 10/06/20 Lita Oseguera Personal Advocate & Liaison (PAL) Family Medicine 09/10/20 09/21/20 Galo Burrell MD Assigned Heart and Vascular Provider 10/05/20 04/02/22 Cristina Wood Financial Resource Worker 10/07/20 10/14/20 Lesley Moody, [facility] Community Health Worker 10/23/2012/30 Meredith Bedoya Financial Resource Worker 10/23/20 11/23/20 Cristina Wood Financial Resource Worker 02/09/21 02/09/21 Diana Desir, [facility] [address] [place] [address] Pharmacist Pharmacist 04/17/21 Rain Galaviz PA-C [address] [place] [address] [place] [address] Physician Embossed Or Impressed Lettering Painter Dermatology 04/28/21 Summer Lara MD [address] [place] [address] Assigned OBGYN Provider 05/10/2105/23 Summer Lara MD [address] [place] [address] 660584 Assigned OBGYN Provider 05/31/21 Summer Lara MD [address] [place] [address] [id number] Assigned OBGYN Provider 05/24/2105/30 Tavia Wyatt MD [address] [place] [address] [id number] Dermatology 07/14/21 Johnny Murillo MD [address] [place] [address] Assigned Musculoskeletal Provider 08/30/21 03/17/22 Erica Farrell APRN CRYSTAL GRINDER [address] [facility] [address] [place] [address] Nurse Practitioner Cardiovascular Disease 09/09/21 Teresita Bean [facility] [address] [place] [phone] Pharmacist Pharmacist 09/24/21 09/29/21 Tavia Wyatt MD [address] [place] [address] Assigned Surgical Provider 11/29/21 05/07/22 Diana Desir, [facility] [address] [place] [address] Assigned MTM Pharmacist 01/02/22 Rich Barrett MD [address] [phone] Physician Ophthalmology 01/21/22 Neil Kent MD [address] [place], [place] [phone] Dermatology 02/24/22 Roney Story DPM [address] [facility] [address] [place] [address] Assigned Musculoskeletal Provider 03/20/22 08/13/22 Erica Farrell APRN CRYSTAL GRINDER [address] [place] [address] Assigned Heart and Vascular Provider 04/03/22 04/16/22 Diana Desir, [facility] [address] [place] [address] Assigned MTM Pharmacist 04/07/22 Jelena David OD [address] [facility] [address] Assigned Surgical Provider 05/08/22 10/08/22 Galo Burrell MD Assigned Heart and Vascular Provider 04/17/22 06/11/22 Livan Sharif MD [address] [place] [address] Cardiovascular Disease 05/14/22 Livan Sharif MD [address] [place] [address] Assigned Heart and Vascular Provider 06/12/22 07/23/22 Catherine Cm MD [address] [place] [address] Cardiovascular Disease 07/21/22 Valery Veronica, PA-C [address] [place] [address] Physician Embossed Or Impressed Lettering Painter Dermatology 07/21/22 Catherine Cm MD [address] [place] [address] Assigned Heart and Vascular Provider 07/24/22 11/05/22 Johnny Murillo MD [address] [facility] [address] [place] [address] Assigned Musculoskeletal Provider 08/14/22 10/08/22 Brea Quinn APRN CRYSTAL GRINDER [address] [place] [address] Nurse Practitioner Dermatology 09/21/22 Brea Quinn APRN CRYSTAL GRINDER [address] [facility] [place] [address] Assigned Surgical Provider 10/09/22 05/01/24 [place] [address] [facility] [address] [place] [address] Assigned Musculoskeletal Provider 10/09/22 05/01/24 Livan Sharif MD [address] [facility] [address] [place] [address] Assigned Heart and Vascular Provider 11/06/22 11/12/22 Catherine Cm MD [address] [facility] [address] [place] [address] Assigned Heart and Vascular Provider 11/13/22 05/27/23 Sydnie Martinez RN Personal Advocate & Liaison (PAL) Family Medicine 03/28/23 07/31/23 Alfonso Renteria MD [address] [facility] [address] [place] [address] Assigned Neuroscience Provider 04/02/23 Cheng Todd PA-C [address] [place] [address] Assigned PCP 04/30/23 07/15/23 Radha Lomeli APRN CRYSTAL GRINDER [address] [place], [place] 648585 Assigned Heart and Vascular Provider 05/28/23 Jelena David OD [address] [facility] [place] [address] MD Ophthalmology 06/15/23 Pao Joseph, VJ Personal Advocate & Liaison (PAL) Nurse 08/01/23 11/07/23 Esha Grimm PA-C [address] [place] [address] Assigned PCP 07/16/23 Valery Veronica PA-C [address] [place] [address] [phone] Physician Embossed Or Impressed Lettering Painter Dermatology 09/19/23 Rey Tay MD [address] [place] [address] 572995 Gastroenterology 09/20/23 Rocky Zepeda DO [address] [place] [address] [phone] Physician Gastroenterology 09/20/23 Philip Dumont MD [address] [place] [address] [phone] Physician Ophthalmology 09/22/23 Meredith Carrera PA-C [address] [place] [address] Assigned Gastroenterology Provider 11/01/23 Neil Kent MD [address] [address] Dermatology 11/02/23 [place] [address] [place] [address] Neurological Surgery 12/26/23 Audrey Waite PA-C [address] [place] [address] Physician Embossed Or Impressed Lettering Painter Dermatology 02/28/24 Valery Veronica PA-C 064235 [address], [place] [address] Physician Embossed Or Impressed Lettering Painter Dermatology 04/10/24 Herminia Hatch MD [facility] [place] [address] Assigned Rheumatology Provider 07/02/24 documented as of this encounter
[2024-07-22 21:07] VITALS: BP 115/67; PULSE 72; RESP 18; TEMP 36.8; O2SAT 98; BMI 32.3
--- NOTE | 2024-07-22 21:40 | ED.CHESTPAIN ---
HPI - Chest Pain General Date Seen: 07/22/24 Chief Complaint: Chest Pain Stated Complaint: Chest Tightness, heart palpatations Time Seen by Provider: 07/22/24 21:40 History of Present Illness HPI narrative: 24 yo F with a past medical history of SVT (previous ablation. On metoprolol 12.5 mg b.i.d.), psoriasis, presenting to the ER today he with concern for chest pain and also palpitations. 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 She has been working her to try to exercise more lately and actually went to the gym to exercise 6 days in a row last week. She notes with summer exercise she occasionally gets palpitations. Last time she exercise was Tuesday and at the end of her work out which was a hard workout she felt her heart racing which made her feel uneasy so she left the gym. Today she has been stressed all day. This afternoon she felt some palpitations and then a couple of episodes of substernal chest tightness. She think she might be just anxious, but with her history of SVT, and because she has ankle mother, she came to the ER just to be sure she is okay. At this point she is no longer feeling any palpitations. Chest pain is improving. No other symptoms. No pain through to the back. No pain radiating down her arm. No nausea. No cough. No shortness of breath. No abdominal pain. No recent travel or immobilization. No swelling in her legs. She is not on control pills. Related Data Home Medications ?Medication ?Instructions ?Recorded ?Confirmed omeprazole 40 mg capsule,delayed 40 mg PO DAILY 04/28/22 07/22/24 release lorazepam 0.5 mg tablet 0.5 mg PO DAILY PRN anxiety 03/18/23 07/22/24 metoprolol succinate 25 mg 12.5 mg PO DAILY 10/15/23 07/22/24 tablet,extended release 24 hr paroxetine HCl 40 mg tablet 40 mg PO QAM 10/15/23 07/22/24 ketoconazole 2 % shampoo topical 05/02/24 07/13/24 tretinoin 0.05 % topical cream 1 applic topical QPM 05/02/24 07/13/24 (Retin-A) Allergies Allergy/AdvReac Type Severity Reaction Status Date / Time vancomycin Allergy Verified 07/22/24 21:21 [facility] Medical History SVT (supraventricular tachycardia) ?I47.10 - Supraventricular tachycardia, unspecified (ICD-10) Social History Smoking Status: Former smoker What tobacco products do you use: cigarettes Smoking quit date/years: <= 15 years ago Do you use any of these nicotine containing products: None and Vaping Products Second hand tobacco smoke exposure: No How often do you have a drink containing alcohol: monthly or less How often do you have six or more drinks on one occasion: Never AUDIT-C Alcohol total score: 1 Non-prescribed substance use: denies use service: No Exam Narrative Exam Narrative: Constitutional: Appears well-developed and well-nourished. Alert. Conversant. Very polite and remembers me from other ER visits. Non toxic. HENT: Head: Atraumatic. Nose: Nose normal. Mouth/Throat: Oral mucosa is clear and moist. no trismus. Pharynx normal. Tonsils symmetric. No tonsillar enlargement, erythema, or exudate. Eyes: Conjunctivae normal. EOM normal. Pupils equal, round, and reactive to light. No scleral icterus. Neck: Normal range of motion. Neck supple. No tracheal deviation present. Cardiovascular: Normal rate, regular rhythm. No gallop. No friction rub. No murmur heard. Symmetric radial artery pulses Pulmonary/Chest: Effort normal. No stridor. No respiratory distress. No wheezes. No rales. No rhonchi . No tenderness. Abdominal: Soft. Bowel sounds normal. No distension. No mass. No tenderness. No rebound. No guarding. Musculoskeletal: RUE: Normal range of motion. No tenderness. No deformity LUE: Normal range of motion. No tenderness. No deformity RLE: Normal range of motion. No edema. No tenderness. No deformity LLE: Normal range of motion. No edema. No tenderness. No deformity Lymph: No cervical adenopathy. Neurological: Alert and oriented to person, place, and time. Normal strength. CN II-VII intact. No sensory deficit. GCS eye subscore is 4. GCS verbal subscore is 5. GCS motor subscore is 6. Normal coordination Skin: Skin is warm and dry. No rash noted. No pallor. Normal capillary refill. Psychiatric: Normal mood. Somewhat anxious. Endorses anxiety. Const Vital Signs, click to edit/add: Vital Signs - 24 hr 07/22/24 21:07 07/22/24 22:45 07/22/24 23:00 Temperature 98.3 F 98.3 F Pulse Rate [Pulse Oximeter] 72 70 Respiratory Rate 18 18 Blood Pressure [Right Upper Arm] 115/67 120/74 Pulse Oximetry 98 98 98 Oxygen Delivery Method Room Air Room Air 07/23/24 00:54 07/23/24 00:55 Temperature 98.3 F 98.3 F Pulse Rate [Pulse Oximeter] 78 78 Respiratory Rate 18 18 Blood Pressure [Right Upper Arm] 118/70 118/70 Pulse Oximetry 98 Oxygen Delivery Method Room Air Course Vital Signs Vital signs: Initial Vital Signs Temperature 98.3 F 07/22/24 21:07 Temperature Source Temporal Artery Scan 07/22/24 21:07 Pulse Rate 72 07/22/24 21:07 Respiratory Rate 18 07/22/24 21:07 Blood Pressure 115/67 07/22/24 21:07 Blood Pressure Mean 83 07/22/24 21:07 Blood Pressure Position Sitting 07/22/24 21:07 Pulse Oximetry 98 07/22/24 21:07 Oxygen Delivery Method Room Air 07/22/24 21:07 Vital Signs Temperature 98.3 F 07/22/24 21:07 Pulse Rate 72 07/22/24 21:07 Respiratory Rate 18 07/22/24 21:07 Blood Pressure 115/67 07/22/24 21:07 Pulse Oximetry 98 07/22/24 21:07 Oxygen Delivery Method Room Air 07/22/24 21:07 Temperature 98.3 F 07/23/24 00:55 Pulse Rate 78 07/23/24 00:55 Respiratory Rate 18 07/23/24 00:55 Blood Pressure 118/70 07/23/24 00:55 Pulse Oximetry 98 07/23/24 00:54 Oxygen Delivery Method Room Air 07/23/24 00:54 MDM - Chest Pain MDM Narrative Medical decision making narrative: This patient presents to the ER today for evaluation of chest pain and palpitation. Differential was broad. No evidence of palpitations, syncope or other cardiac dysrhythmia. We considered possible ACS, however workup with EKG and troponin is negative. HEART score is 0. Given time since onset of symptoms, I do not think the patient needs to be admitted for further sets of enzymes. EKG shows no evidence for pericarditis. Clinical presentation not suggestive of myocarditis. Chest x-ray shows no evidence for pneumonia, pneumothorax, pulmonary edema, pleural effusion, rib fracture, cardiomegaly. No pain through to the back or other pulse deficits to suggest aortic dissection We considered PE for this patient. Overall is very low risk and is negative by PERC so would hold off on D-dimer testing or CT PA. No wheezing or bronchospasm to suggest COPD/asthma. Lung sounds clear. No recent cough to suggest lung infection. At this point will hold off on x-ray No signs of chest wall cellulitis, shingles, injury. With her palpitations, consider possible arrhythmia, ectopy, or recurrence of SVT. Here in the ER she has sinus rhythm with no abnormality. Discussed with the patient that she should talk to her cloth classer to arrange an outpatient Holter monitor to look for potential events that her occurring while she is working out. At this point she and I agree that she does not require hospitalization for cardiac monitoring here overnight. There may be some component of anxiety contributing to her symptoms. She has improved here in the ER With reasonable clinical confidence, I think the patient is safe for outpatient follow up. Discussed return precautions. Questions answered. Patient voices comfort with the plan. Lab Data Labs: Lab Results 07/22/24 07/22/24 Range/Units 21:58 22:15 WBC 6.18 (4.50-11.00) K/uL RBC 4.68 (4.00-5.20) m/uL Hgb 12.1 (12.0-16.0) gm/dL Hct 38.1 (33.0-51.0) % MCV 81 (80-100) fL MCH 26 (26-34) pg MCHC 32 (32-36) gm/dL RDW Coeff of Naina 12.6 (11.5-15.5) % Plt Count 265 (140-440) K/uL Neut % (Auto) 53.3 (42.0-72.0) % Lymph % (Auto) 33.0 (20-44) % [place] % (Auto) 7.3 (0.0-11.0) % Eos % (Auto) 5.7 (0.0-7.0) % Baso % (Auto) 0.5 (0.0-3.0) % Neut # (Auto) 3.30 (1.7-7.0) K/uL Lymph # (Auto) 2.04 (0.90-2.90) K/uL [place] # (Auto) 0.50 (0.00-0.90) K/UL Eos # (Auto) 0.35 (0.00-0.50) K/uL Baso # (Auto) 0.03 (0.00-0.30) K/uL Abs Immat Gran (auto) 0.01 (0.00-0.30) K/uL Imm/Tot Granulo (auto) 0.2 % Sodium 136 (135-149) mmol/L Potassium 4.0 (3.6-5.1) mmol/L Chloride 103 (96-114) mmol/L Carbon Dioxide 26 (20-32) mmol/L Anion Gap 7 (7-15) mEq/L BUN 20 (5-24) mg/dL Creatinine 1.1 (0.5-1.5) mg/dL Estimated Creat Clear 73.83 Estimated GFR 72 ml/min Glucose 81 (60-115) mg/dL Calcium 9.4 (8.4-10.6) mg/dL HCG, Qual Negative (Negative) POC Troponin I 0.00 L (0.01-0.04) ng/ml ECG Data Attestation: I personally reviewed and interpreted this ECG as follows: Interpretation: Normal sinus rhythm Rate: 71 TN: 146. No delta waves. QRS axis: Normal axis. No pathologic Q-waves ST segment/T wave: No ST segment elevation or depression. QTc: 412 Discharge Plan Discharge Clinical Impression: Chest pain, Palpitations Patient Disposition: Home, Self-Care Condition: Stable Instructions: Chest Pain (DC) Additional Instructions: As we discussed, so far your workup looks reassuring. However not all problem show up right away in the ER. please return to the ER right away if you have any problems especially more episodes of pain, palpitations, dizzy spells or fainting, or if you have any concerns. Please follow-up with your regular doctor or your cloth classer for recheck within 1 week. Prescriptions: No Action tretinoin [Retin-A] 0.05 % cream 1 applic topical QPM ketoconazole 2 % shampoo topical lorazepam 0.5 mg tablet 0.5 mg PO DAILY PRN (Reason: anxiety) omeprazole 40 mg capsule,delayed release(DR/EC) 40 mg PO DAILY Patient Comments: TAKE ONE CAPSULE BY MOUTH EVERY DAY . metoprolol succinate 25 mg tablet extended release 24 hr 12.5 mg PO DAILY paroxetine HCl 40 mg tablet 40 mg PO QAM Follow Up/Referrals: Provider,Not a Local [Primary Care Provider] - Stand Alone Forms: [employer] Info Instructions
[2024-07-22 22:23] LABS: Basophils Absolute Auto 0.03 K/uL (0.00-0.30); Basophils Percent Auto 0.5 % (0.0-3.0); Eosinophils Absolute Auto 0.35 K/uL (0.00-0.50); Eosinophils Percent Auto 5.7 % (0.0-7.0); Hematocrit 38.1 % (33.0-51.0); Hemoglobin* 12.1 gm/dL (12.0-16.0); Immature Granulocytes Abs Auto 0.01 K/uL (0.00-0.30); Immature Granulocytes Pct Auto 0.2 %; Lymphocytes Absolute Auto 2.04 K/uL (0.90-2.90); Mean Corpuscular HGB Conc 32 gm/dL (32-36); Mean Corpuscular Hemoglobin 26 pg (26-34); Mean Corpuscular Volume 81 fL (80-100); Monocytes Percent Auto 7.3 % (0.0-11.0); Neutrophils Percent Auto 53.3 % (42.0-72.0); Platelet Count* 265 K/uL (140-440); RDW Coefficient of Variation % 12.6 % (11.5-15.5); Red Blood Count 4.68 m/uL (4.00-5.20); White Blood Count* 6.18 K/uL (4.50-11.00)
[2024-07-22 22:30] LABS: Slide Review Reflex No
--- OUTSIDE RECORDS SUMMARY | 2024-07-22 22:40 | XMS_ITS | Clinical Summary ---
Author Organization [facility] Address [address] [place] [address] Care Team Providers Care Shipyard Painter Apprentice Name Role Phone Diana Desir [facility] Unavailable Rain Galaviz PAUcheC Unavailable Tavia Wyatt MD Unavailable Erica Farrell CRIMINAL RESEARCH SPECIALIST CLIENT SERVICE PROFESSIONAL Unavailable Rich Barrett MD Unavailable [phone] Neil Kent MD Unavailable Kendrick Desirelle Stanislav [facility] Unavailable Livan Sharif MD Unavailable Catherine Cm MD Unavailable + Valery Veronica-C Unavailable Brea Quinn CRIMINAL RESEARCH SPECIALIST CLIENT SERVICE PROFESSIONAL Unavailable [phone] Alfonso Renteria MD Unavailable [phone] Esha GrimmC Primary Care Provider [phone] Radha Lomeli CRIMINAL RESEARCH SPECIALIST CLIENT SERVICE PROFESSIONAL Unavailable Jelena David OD Unavailable Alfa, Esha M PA-C Unavailable [phone] Valery Veronica PA-C Unavailable [phone] Rey Tay MD Unavailable Duane Rockyanne STEVENS Unavailable Philip Dumont MD Unavailable [phone] Meredith Carrera PA-C Unavailable Neil Kent [...] available in ED consider consultation with ED Novelty Dipper. Relevant Medical History (at time Care Plan [...] to initiation of Care Plan: 11 Total [facility] Hospital Admissions in 12 months prior to initiation of Care Plan: 0 (she has technically had 2 admissions due to related issues with OBGYN) Expected home rescue plan: Metoprolol 12.5mg PRN PCP: Marija Edgar APRN CNP - Family Medicine - [facility] Specialists: Dr. Galo Burrell - Cardiology - [facility] Dee Dotson - Neurology - [facility] Epilepsy Care Care Coordination: Has worked with Community Health Worker in past - ARACELIS Parker, Clinical Care Coordination - [facility] ([place], [place] and [place]) - Follow up plan after an ED visit: Marija Edgar APRN CNP - [facility] Medicine - [facility] Initiated: 2020 Problem Noted [...] (05/27/2020): Added automatically from request for surgery [id number] Left ureteral stone 05/27/2020 Overview (05/27/2020): Added automatically from request for surgery [id number] Head ache 02/18/2020 Seizure 05/02/2019 Depressed 05/02/2019 Anxiety 05/02/2019 Tobacco abuse counseling 05/02/2019 Psoriasis 05/02/2019 Resolved Problems Problem Noted Date Diagnosed Date Resolved Date Neck pain 08/25/2022 06/29/2024 Lower back pain 08/25/2022 08/17/2023 Term 01/13/2021 10/11/2022 Encounter for triage in patient 12/09/2020 04/18/2023 Asthma 06/04/2020 02/07/2024 Encounters Date Type Department Care Team Description 07/17/2024 12:30 PM EVAPORATOR OPERATOR E-Visit [address] [phone] Esha Grimm PA-C Bacterial vaginosis (Primary Dx) 07/16/2024 MyC Medical Advice [address] [phone] Esha Grimm PA-C Patient Request for Note/Letter; Medicatio... 07/12/2024 Telephone [facility] - [address], [address] [place] [address] Johnny Penn MD Appointment 06/21/2024 4:30 PM EVAPORATOR OPERATOR Lab [facility] [address] [place] [address] Vaginal discharge; Screen for STD (sexually transmitted disease) 06/21/2024 Travel 06/21/2024 MyC Medical Advice [address] [phone] Antonella Eldridge RN 06/21/2024 PRE VISIT [facility] [address], [address] [place] [phone] Johnny Penn MD Previsit 06/20/2024 MyC Medical Advice [facility] [address] [facility] [address] [place] [phone] Carley Myles RN 06/20/[address] [phone] Brea Quinn APRN CLIENT SERVICE PROFESSIONAL Refill Request (Tacrolimus 0.1% ointment & Triamcinolone 0.1% ointment) 06/20/2024 Telephone [facility] [address] [facility] [address] [place] [phone] Radha Lomeli, ARLENE CLIENT SERVICE PROFESSIONAL Call Back 06/08/[address] [phone] Esha Grimm PA-C Medication Question 06/06/2024 Orders Only [facility] [address] [place] [phone] Outside, Provider 06/05/2024 5:15 PM EVAPORATOR OPERATOR Office Visit [facility] [address] [phone] Jaron Hager PA-C Lymphadenopathy (Primary Dx); Chest pain, unspecified type 06/05/2024 Travel 06/05/2024 MyC Medical Advice [facility] [address] [place] [address] Herminia Hatch MD 05/31/2024 4:30 PM EVAPORATOR OPERATOR Lab [facility] [address] [place] [phone] Psoriatic arthritis (H); Tuberculosis screening; Encounter for hepatitis C screening test for low risk patient 05/31/2024 3:30 PM EVAPORATOR OPERATOR Office Visit [facility] [address] [place] [address] Audrey Díaz, Herminia Koo MD Psoriatic arthritis (H) (Primary Dx); Psoriasis; Chronic bilateral low back pain without sciatica; Encounter to discuss treatment options; Tuberculosis screening; Need for hepatitis B screening test; Encounter for hepatitis C screening test for low risk patient 05/31/2024 Travel 05/28/2024 Travel 05/18/2024 Refill [facility] [id number] [place] [address] [address] [place] [address] Radha Lomeli APRN CLIENT SERVICE PROFESSIONAL Refill Request (metoprolol) 05/17/2024 9:30 AM EVAPORATOR OPERATOR Virtual Visit [address] [phone] Diana Desir, [facility] Anxiety (Primary Dx); Moderate major depression (H); 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 with body mass index (BMI) of 31.0 to 31.9 in adult 05/14/2024 2:50 PM EVAPORATOR OPERATOR Therapy Visit [facility] [address] [place] [phone] Ingris Thompson PT Neck pain (Primary Dx) 05/14/2024 Travel 05/11/2024 MyC Medical Advice [address] [phone] Esha Grimm PA-C 05/08/2024 1:30 PM CDT Office Visit [address] [phone] Lauren Claudio PA-C Holm, Kayla M, PA-C Routine general medical examination at a health care facility (Primary Dx); Other ventricular tachycardia (H); CYP2C9 intermediate metabolizer (H); Moderate major depression (H); Shortness of breath; Psoriasis; Vaginal discomfort 05/08/2024 Telephone [facility] [address] [facility], [address] [place] [address] Alfonso Renteria MD Forms (DMV(LOC)) 05/08/2024 Travel 05/07/2024 Travel 04/24/2024 Telephone [facility] [address] [facility] [address] [place] [phone] Natali Serrano RN 04/24/2024 MyC Medical Advice [facility] [address] [facility] [address] [place] [phone] Radha Lomeli APRN CLIENT SERVICE PROFESSIONAL 04/24/2024 Telephone [facility] [address] [facility] [address] [place] [phone] Rani Gross, RN Results 2024 10:00 AM CDT Lab [facility] [address] [place] [address] Screen for STD (sexually transmitted disease) 2024 Travel 04/22/2024 8:50 AM CDT E-Visit [facility] [address] [place] [phone] Esha Grimm PA-C Screen for STD (sexually [...] exercise at this level? 20 min 05/07/2024 Clinton Depression Scale Answer Date Recorded Clinton Depression Score 5 01/14/2021 Last EPDS Self [...] PM CDT Legal Sex Female 4:13 AM EVAPORATOR OPERATOR Gender Identity Female 03/02/2021 5:45 PM CDT Sexual Orientation Straight 02/28/2020 12 :51 AM CDT Last Filed Vital Signs Vital Sign Reading Time Taken Comments Blood Pressure 104/62 06/05/2024 5:21 PM EVAPORATOR OPERATOR Pulse 79 06/05/2024 5:21 PM EVAPORATOR OPERATOR Temperature 36.7 C (98.1 F) 06/05/2024 5:21 PM EVAPORATOR OPERATOR Respiratory Rate 18 06/05/2024 5:21 PM EVAPORATOR OPERATOR Oxygen Saturation 99% 06/05/2024 5:21 PM EVAPORATOR OPERATOR Inhaled Oxygen Concentration - - Weight 90.9 kg (200 lb 4.8 oz) 06/05/2024 5:21 P M EVAPORATOR OPERATOR Height 167.6 cm (5' 6) 05/31/2024 3:37 PM EVAPORATOR OPERATOR Body Mass Index 32.33 05/31/2024 3:37 PM EVAPORATOR OPERATOR Plan of Treatment Upcoming Encounters Date Type Department Care Team (Late st Contact Info) Description 10/23/2024 9:30 AM CDT Office Visit [facility] - [address], [address] [place] [address] [place] [address] [place], [place] [address] Johnny Penn MD [address] [place], [place] [phone] 11/28/2024 7:45 AM CDT Virtual Visit [facility] [address] 4[address] [place] [address] Meredith Carrera PA-C [address] [place] [address] Health Maintenance Due Date Last Done [...] NEISSERIA GONORRHOEAE PCR Routine 06/21/2024 4:22 PM EVAPORATOR OPERATOR Screen for STD (sexually transmitted disease) CHLAMYDIA TRACHOMATIS PCR Routine 06/21/2024 4:22 PM EVAPORATOR OPERATOR Screen for STD (sexually transmitted disease) WET PREPARATION Routine 06/21/2024 4:22 PM EVAPORATOR OPERATOR Vaginal discharge TREPONEMA ABS W REFLEX TO RPR AND TITER Routine 06/21/2024 4:22 PM EVAPORATOR OPERATOR Screen for STD (sexually transmitted disease) HIV ANTIGEN ANTIBODY COMBO Routine 06/21/2024 4:22 PM EVAPORATOR OPERATOR Screen for STD (sexually transmitted disease) HLA RESULT REPORT 06/06/2024 2:0 4 PM EVAPORATOR OPERATOR GROUP A STREPTOCOCCUS PCR THROAT SWAB Routine 06/05/2024 6:28 PM EVAPORATOR OPERATOR Lymphadenopathy STREPTOCOCCUS A RAPID SCREEN W REFELX TO PCR Routine 06/05/2024 6:28 PM EVAPORATOR OPERATOR Lymphadenopathy EKG 12-LEAD COMPLETE W/READ - CLINICS Routine 06/05/2024 Lymphadenopathy QUANTIFERON-TB GOLD PLUS Routine 05/31/2024 4:44 PM EVAPORATOR OPERATOR Psoriatic arthritis (H) Tuberculosis screening Encounter for hepatitis C screening test for low risk patient QUANTIFERON TB GOLD PLUS Routine 05/31/2024 4:44 PM EVAPORATOR OPERATOR Psoriatic arthritis (H) Tuberculosis screening Encounter for hepatitis C screening test for low risk patient QUANTIFERON TB GOLD PLUS PURPLE TUBE Routine 05/31/2024 4:44 PM EVAPORATOR OPERATOR Psoriatic arthritis (H) Tuberculosis screening Encounter for hepatitis C screening test for low risk patient QUANTIFERON TB GOLD PLUS YELLOW TUBE Routine 05/31/2024 4:44 PM EVAPORATOR OPERATOR Psoriatic arthritis (H) Tuberculosis screening Encounter for hepatitis C screening test for low risk patient QUANTIFERON TB GOLD PLUS GREEN TUBE Routine 05/31/2024 4:44 PM EVAPORATOR OPERATOR Psoriatic arthritis (H) Tuberculosis screening Encounter for hepatitis C screening test for low risk patient QUANTIFERON TB GOLD PLUS GIL TUBE Routine 05/31/2024 4:44 PM EVAPORATOR OPERATOR Psoriatic arthritis (H) Tuberculosis screening Encounter for hepatitis C screening test for low risk patient RHEUMATOID FACTOR Routine 05/31/2024 4:4 3 PM EVAPORATOR OPERATOR Psoriatic arthritis (H) Tuberculosis screening Encounter for hepatitis C screening test for low risk patient CYCLIC CITRULLINATED PEPTIDE ANTIBODY IGG Routine 05/31/2024 4:43 PM EVAPORATOR OPERATOR Psoriatic arthritis (H) Tuberculosis screening Encounter for hepatitis C screening test for low risk patient HEPATITIS C ANTIBODY Routine 05/31/2024 4:42 PM EVAPORATOR OPERATOR Psoriatic arthritis (H) Tuberculosis screening Encounter for hepatitis C screening test for low risk patient HEPATITIS B SURFACE ANTIGEN Routine 05/31/2024 4:42 PM EVAPORATOR OPERATOR Psoriatic arthritis (H) Tuberculosis screening Encounter for hepatitis C screening test for low risk patient HEPATITIS B SURFACE ANTIBODY Routine 05/31/2024 4:42 PM EVAPORATOR OPERATOR Psoriatic arthritis (H) Tuberculosis screening Encounter for hepatitis C screening test for low risk patient HEPATITIS B CORE ANTIBODY Routine 05/31/2024 4:42 PM EVAPORATOR OPERATOR Psoriatic arthritis (H) Tuberculosis screening Encounter for hepatitis C screening test for low risk patient ERYTHROCYTE SEDIMENTATION RATE AUTO Routine 05/31/2024 4:42 PM EVAPORATOR OPERATOR Psoriatic arthritis (H) Tuberculosis screening Encounter for hepatitis C screening test for low risk patient CRP INFLAMMATION Routine 05/31/2024 4:42 PM EVAPORATOR OPERATOR Psoriatic arthritis (H) Tuberculosis screening Encounter for hepatitis C screening test for low risk patient HLA-B27 TYPING Routine 05/31/2024 4:41 PM EVAPORATOR OPERATOR Psoriatic arthritis (H) Tuberculosis screening Encounter for hepatitis C screening test for low risk patient LIPID REFLEX TO DIRECT LDL PANEL Routine 05/08/2024 2:49 PM CDT Routine general medical examination at a health care facility COMPREHENSIVE METABOLIC PANEL Routine 05/08/2024 2:49 PM CDT Routine general medical examination at a [facility] care facility CBC WITH PLATELETS Routine 05/08/2024 2: 49 PM CDT Routine general medical examination at a [facility] care facility FERRITIN Routine 05/08/2024 2:49 PM CDT Routine general medical examination at a [facility] care facility IRON AND IRON BINDING CAPACITY Routine 05/08/2024 2:49 PM CDT Routine general medical examination at a [facility] WET PREPARATION Routine 05/08/2024 2:40 [...] HIV Antigen Antibody Combo (06/21/2024 4:22 PM EVAPORATOR OPERATOR) Only the most recent of2 resultswithin the time period is included. HIV Antigen Antibody Combo Nonreactive Nonreactive 06/22/2024 6:16 PM EVAPORATOR OPERATOR U LABORATORY Comment:Negative HIV-1 p24 a ntigen [...] Unknown Venipuncture / Unknown 06/21/2024 4:22 PM EVAPORATOR OPERATOR 06/21/2024 4:30 PM EVAPORATOR OPERATOR Esha Grimm PA-C LAB - BLOOD ORDERABLES Final R esult LABORATORY [facility] Core [facility] [address] [place] [address], [facility] [address] * Treponema Abs w Reflex to RPR and Titer (06/21/2024 4:22 PM EVAPORATOR OPERATOR) Only the most recent of2 resultswithin the time period is included. Treponema Antibody Total Nonreactive Nonreactive 06/22/2024 6:47 PM EVAPORATOR OPERATOR SPECIALTY CORE/PROT/EN DO Blood BLOOD SPECIMEN / Unknown Venipuncture / Unknown 06/21/2024 4:22 PM EVAPORATOR OPERATOR 06/21/2024 4:30 PM EVAPORATOR OPERATOR Esha Grimm PA-C LAB - BLOOD ORDERABLES Final R esult UM SPECIALTY CORE/PROT/ENDO Specialty Core/Prot/Endo [address] [facility], [address] [address], [place] * (ABNORMAL) Wet preparation (06/21/2024 4:22 PM EVAPORATOR OPERATOR) Only the most recent of3 resultswithin the time period is included. Trichomonas Absent Absent REINA 06/21/2024 4:42 PM EVAPORATOR OPERATOR LV LABORATORY Yeast Present(A) Absent REINA 06/21/2024 4:42 PM EVAPORATOR OPERATOR [facility] Clue Cells Absent Absent REINA 06/21/2024 4:42 PM EVAPORATOR OPERATOR [facility] WBCs/high power field 3+(A) None REINA 06/21/2024 4:42 PM EVAPORATOR OPERATOR [facility] Swab VAGINAL STRUCTURE / Unknown Non-blood Collection / Unknown 06/21/2024 4:22 PM EVAPORATOR OPERATOR 06/21/2024 4:36 PM EVAPORATOR OPERATOR Esha Grimm PA-C LAB - MICRO GENERAL ORDERABLES Final Result LV LABORATORY [facility] [address] [facility] Lab (no room number, 1st floor of clinic) [place] [address] * Neisseria gonorrhoeae PCR (06/21/2024 4:22 PM EVAPORATOR OPERATOR) Neisseria gonorrhoeae Negative Negative 06/22/2024 5:48 PM EVAPORATOR OPERATOR [facility] Comment:Negative for N. gono rrhoeae rRNA by dietetics director mediated amplification. A negative result by dietetics director mediated amplification does not preclude the presence of C. trachomatis infection because results are dependent on proper and adequate collection, absence of inhibitors and sufficient rRNA to be detected. Swab VAGINAL STRUCTURE / Unknown Non-blood Collection / Unknown 06/21/2024 4:22 PM EVAPORATOR OPERATOR 06/21/2024 4:36 PM EVAPORATOR OPERATOR us Esha Grimm PA-C LAB - MICRO GENERAL ORDERABLES Final Result [facility] Di[facility] Lab [address] [facility], [address] [place] [address] * Chlamydia trachomatis PCR (06/21/2024 4:22 PM EVAPORATOR OPERATOR) Chlamydia trachomatis Negative Negative 06/22/2024 5:48 PM EVAPORATOR OPERATOR [facility] Comment:A negative result by dietetics director mediated amplification does not preclude the presence of C. trachomatis infection because results are dependent on proper and adequate collection, absence of inhibitors and sufficient rRNA to be detected. Swab VAGINAL STRUCTURE / Unknown Non-blood Collection / Unknown 06/21/2024 4:22 PM EVAPORATOR OPERATOR 06/21/2024 4:36 PM EVAPORATOR OPERATOR Esha Grimm PA-C LAB - MICRO GENERAL ORDERABLES Final Result [facility] Inf. Diseases Di[facility]. Lab [address] [facility], [address] [place] [address] * HLA Result Report (06/06/2024 2:04 PM EVAPORATOR OPERATOR) us Provider Outside LAB - IMMUNOLOGY ORDERABLES Fin al Result * Streptococcus A Rapid Screen w/Reflex to PCR - Clinic Collect (06/05/2024 6:28 PM EVAPORATOR OPERATOR) Pathologist [facility] A Strep antigen Negative Negative 06/05/2024 6:50 PM EVAPORATOR OPERATOR LABORATORY Swab STRUCTURE OF ANTERIOR PORTION OF NECK / Unknown Non-blood Collection / Unknown 06/05/2024 6:28 PM EVAPORATOR OPERATOR 06/05/2024 6:44 PM EVAPORATOR OPERATOR Jaron Hager PA-C LAB - MICRO GENERAL ORD ERABLES Final Result LV LABORATORY [facility] [address] [place] [address] Lab (no room number, 1st floor of clinic) [place] [address] * Group A Streptococcus PCR Throat Swab (06/05/2024 6:28 PM EVAPORATOR OPERATOR) Pathologist [facility] A strep by PCR Not Detected Not Detected 06/06/2024 4:18 PM EVAPORATOR OPERATOR [facility] Swab STRUCTURE OF ANTERIOR PORTION OF NECK / Unknown Non-blood Collection / Unknown 06/05/2024 6:28 PM EVAPORATOR OPERATOR 06/05/2024 6:50 PM EVAPORATOR OPERATOR Narrative [facility] - 06/06/2024 4:18 PM EVAPORATOR OPERATOR The Xpert Xpress Strep A test, performed on the [employer], is a rapid, qualitative in [...] ORD ERABLES Final Result [facility] Inf. Diseases Diag. Lab [address] [facility], [address] [place] [address] * EKG 12-lead complete w/read - Clinics (06/05/2024) us Jaron Hager PA-C ECG ORDERABLES Final R esult * Quantiferon TB Gold Plus (05/31/2024 4:44 PM EVAPORATOR OPERATOR) [facility] Quantiferon-TB Gold Plus Negative Negative 06/02/2024 9:45 AM EVAPORATOR OPERATOR SPECIALTY CORE/PROT/END O Comment: No interferon gamma [...] Nil Value -0.05 IU/mL 06/02/2024 9:45 AM EVAPORATOR OPERATOR SPECIALTY CORE/PROT/END O TB2 Ag minus Nil Value 0.05 IU/mL 06/02/2024 9:45 AM EVAPORATOR OPERATOR UM SPECIALTY CORE/PROT/END O Mitogen minus Nil Result 9.73 IU/mL 06/02/2024 9:45 AM EVAPORATOR OPERATOR UM SPECIALTY CORE/PROT/END O Nil Result 0.27 IU/mL 06/02/2024 9:45 AM EVAPORATOR OPERATOR UM SPECIALTY CORE/PROT/END O Blood BLOOD SPECIMEN / Unknown Venipuncture / Unknown 05/31/2024 4:44 PM EVAPORATOR OPERATOR 05/31/2024 4:44 PM EVAPORATOR OPERATOR us Herminia Hatch MD LAB - MICRO GENERAL ORDERABLES F inal Result UM SPECIALTY CORE/PROT/ENDO UM Specialty Core/Prot/Endo [address] [facility], [address] * Quantiferon TB Gold Plus Purple Tube (05/31/2024 4:44 PM EVAPORATOR OPERATOR) Quantiferon Mitogen 10.00 IU/mL 06/02/2024 9:11 AM EVAPORATOR OPERATOR SPECIALTY CORE/PROT/ENDO Blood BLOOD SPECIMEN / Unknown Venipuncture / Unknown 05/31/2024 4:44 PM EVAPORATOR OPERATOR 05/31/2024 4:44 PM EVAPORATOR OPERATOR us Herminia Hatch MD LAB - MICRO GENERAL ORDERABLES F inal Result SPECIALTY CORE/PROT/ENDO Specialty Core/Prot/Endo [address] [facility], [address] * Quantiferon TB Gold Plus Yellow Tube (05/31/2024 4:44 PM EVAPORATOR OPERATOR) Quantiferon TB2 Tube 0.32 06/02/2024 9:11 AM EVAPORATOR OPERATOR UM SPECIALTY CORE/PROT/ENDO Blood BLOOD SPECIMEN / Unknown Venipuncture / Unknown 05/31/2024 4:44 PM EVAPORATOR OPERATOR 05/31/2024 4:44 PM EVAPORATOR OPERATOR us Herminia Hatch MD LAB - MICRO GENERAL ORDERABLES F inal Result UM SPECIALTY CORE/PROT/ENDO UM Specialty Core/Prot/Endo [address] [facility] [address] [facility], [address] * Quantiferon TB Gold Plus Green Tube (05/31/2024 4:44 PM EVAPORATOR OPERATOR) Quantiferon TB1 Tube 0.22 IU/mL 06/02/2024 9:11 AM EVAPORATOR OPERATOR UM SPECIALTY CORE/PROT/ENDO Blood BLOOD SPECIMEN / Unknown Venipuncture / Unknown 05/31/2024 4:44 PM EVAPORATOR OPERATOR 05/31/2024 4:44 PM EVAPORATOR OPERATOR Herminia Hatch MD LAB - MICRO GENERAL ORDERABLES F inal Result UM SPECIALTY CORE/PROT/ENDO Specialty Core/Prot/Endo [address] [facility] [address] [facility], [address] * Quantiferon TB Gold Plus Gil Tube (05/31/2024 4:44 PM EVAPORATOR OPERATOR) Quantiferon Nil Tube 0.27 IU/mL 06/02/2024 9:11 AM EVAPORATOR OPERATOR SPECIALTY CORE/PROT/ENDO Blood BLOOD SPECIMEN / Unknown Venipuncture / Unknown 05/31/2024 4:44 PM EVAPORATOR OPERATOR 05/31/2024 4:44 PM EVAPORATOR OPERATOR us Herminia Hatch MD LAB - MICRO GENERAL ORDERABLES F inal Result UM SPECIALTY CORE/PROT/ENDO Specialty Core/Prot/Endo [address] [facility] [address] [facility], [address] * Cyclic Citrullinated Peptide Antibody IgG (05/31/2024 4:43 PM EVAPORATOR OPERATOR) Cyclic Citrullinated Peptide Antibody IgG 1.7 <7.0 U/mL 06/02/2024 6:47 AM EVAPORATOR OPERATOR UM SPECIALTY CORE/PROT/END O Comment:Negative Blood BLOOD SPECIMEN / Unknown Venipuncture / Unknown 05/31/2024 4:43 PM EVAPORATOR OPERATOR 05/31/2024 4:43 PM EVAPORATOR OPERATOR us Herminia Hatch MD LAB - BLOOD ORDERABLES Final Res ult UM SPECIALTY CORE/PROT/ENDO UM Specialty Core/Prot/Endo [address] [facility] [address] Building, [address] * Rheumatoid factor (05/31/2024 4:43 PM EVAPORATOR OPERATOR) Rheumatoid Factor <10 <14 IU/mL 06/01/2024 9:02 AM EVAPORATOR OPERATOR [facility] Blood BLOOD SPECIMEN / Unknown Venipuncture / Unknown 05/31/2024 4:43 PM EVAPORATOR OPERATOR 05/31/2024 4:43 PM EVAPORATOR OPERATOR us Herminia Hatch MD LAB - BLOOD ORDERABLES Final Res ult Performing Organization Address City/[facility]/ZIP Co de Phone Number U[facility] LABORATORY [facility] Core Lab [address] [place] [address], [address] [address] * Hepatitis B Surface Antibody (05/31/2024 4:42 PM EVAPORATOR OPERATOR) Pathologist [facility] Hepatitis B Surface Antibody Nonreactive 06/01/2024 9:23 AM EVAPORATOR OPERATOR [facility] Comment:Nonreactive results, defined as anti-HBs levels of less than 8.5 mIU/mL, indicate a lack of recovery from acute or chronic hepatitis B or inadequate immune response to HBV vaccination. Hepatitis B Surface Antibody Instrument Value <3.50 <8.5 m[IU]/mL 06/01/2024 9:23 AM EVAPORATOR OPERATOR [facility] Blood BLOOD SPECIMEN / Unknown Venipuncture / Unknown 05/31/2024 4:42 PM EVAPORATOR OPERATOR 05/31/2024 4:42 PM EVAPORATOR OPERATOR us Herminia Hatch MD LAB - BLOOD ORDERABLES Final Res ult [facility] [address] [facility] Building, [address] * Hepatitis C antibody (05/31/2024 4:42 PM EVAPORATOR OPERATOR) Hepatitis C Antibody Nonreactive Nonreactive 06/01/2024 9:22 AM EVAPORATOR OPERATOR [facility] Comment:A nonreactive screen ing test [...] Unknown Venipuncture / Unknown 05/31/2024 4:42 PM EVAPORATOR OPERATOR 05/31/2024 4:42 PM EVAPORATOR OPERATOR us Herminia Hathc MD LAB - BLOOD ORDERABLES Final Res ult [facility] Core Lab [address] [facility], [address] * Hepatitis B surface antigen (05/31/2024 4:42 PM EVAPORATOR OPERATOR) Pathologist [facility] Hepatitis B Surface Antigen Nonreactive Nonreactive 06/01/2024 9:22 AM EVAPORATOR OPERATOR [facility] Blood BLOOD SPECIMEN / Unknown Venipuncture / Unknown 05/31/2024 4:42 PM EVAPORATOR OPERATOR 05/31/2024 4:42 PM EVAPORATOR OPERATOR us Herminia Hatch MD LAB - BLOOD ORDERABLES Final Res ult U [facility] [address] [facility], [address] * Hepatitis B core antibody (05/31/2024 4:42 PM EVAPORATOR OPERATOR) Pathologist [facility] Hepatitis B Core Antibody Total Nonreactive Nonreactive 06/01/2024 9:22 AM EVAPORATOR OPERATOR [facility] Comment:Nonreactive hepatiti s B core antibody test results indicate the absence of exposure to hepatitis B virus and no evidence of recent, past/resolved, or chronic hepatitis B. Blood BLOOD SPECIMEN / Unknown Venipuncture / Unknown 05/31/2024 4:42 PM EVAPORATOR OPERATOR 05/31/2024 4:42 PM EVAPORATOR OPERATOR us Herminia Hatch MD LAB - BLOOD ORDERABLES Final Res ult LABORATORY [facility] [address] [facility], Room 3-580 [place] [address] * Erythrocyte sedimentation rate auto (05/31/2024 4:42 PM EVAPORATOR OPERATOR) [facility] E[facility]th[facility] Sedimentation Rate 10 0 - 20 mm/hr 05/31/2024 4:56 PM EVAPORATOR OPERATOR [facility] LABORATORY Blood BLOOD SPECIMEN / Unknown Venipuncture / Unknown 05/31/2024 4:42 PM EVAPORATOR OPERATOR 05/31/2024 4:42 PM EVAPORATOR OPERATOR us Herminia Hatch MD LAB - BLOOD ORDERABLES Final Res ult Performing Organization Address City/[facility]/ZIP Co de Phone Number [facility] Lab [address], [place] [address], [facility] * CRP, inflammation (05/31/2024 4:42 PM EVAPORATOR OPERATOR) [facility] CRP Inflammation <3.00 <5.00 mg/L 05/31/20 24 4:59 PM EVAPORATOR OPERATOR [facility] LABORATORY Blood BLOOD SPECIMEN / Unknown Venipuncture / Unknown 05/31/2024 4:42 PM EVAPORATOR OPERATOR 05/31/2024 4:42 PM EVAPORATOR OPERATOR us Herminia Hatch MD LAB - BLOOD ORDERABLES Final Res ult [facility] Lab [address] [place] [address], [facility] * HLA-B27 Typing (05/31/2024 4:41 PM EVAPORATOR OPERATOR) [id number] METHOD NGS 06/06/2024 2:04 PM EVAPORATOR OPERATOR [facility] B locus B27 Neg 06/06/2024 2:04 PM EVAPORATOR OPERATOR [facility] Blood BLOOD SPECIMEN / Unknown Venipuncture / Unknown 05/31/2024 4:41 PM EVAPORATOR OPERATOR 05/31/2024 4:42 PM EVAPORATOR OPERATOR Herminia Hatch MD LAB - IMMUNOLOGY ORDERABLES Shira l Result U [facility] LABORATORY Immunology/Histocomp atability CLIA: [id number] [facility] [address], Room 3[address] [phone] * (ABNORMAL) Lipid panel reflex to direct [...] ORDERABLES Final R esult Performing Organization Address City/[facility] de Phone Number [facility] [address] [facility], [address] * Iron and iron binding capacity [...] ORDERABLES Final R esult Performing Organization Address City/[facility] de Phone Number [facility] [address] [facility], [address] [id number] * Ferritin (05/08/2024 2:49 PM CDT) Ferritin 23 6 - 175 ng/mL 05/08/2024 10:44 PM CDT [facility] Blood BLOOD SPECIMEN / Unknown Venipuncture / Unknown 05/08/2024 2:49 PM CDT 05/08/2024 2:49 PM CDT us Esha Grimm PA-C LAB - BLOOD ORDERABLES Final R esult [facility] 500 [facility] J [facility], Room [address] [place] [address], [facility] * Comprehensive metabolic panel (BMP + [...] BLOOD ORDERABLES Final R esult [facility] [address] [facility], Room [address] [place] [phone] * (ABNORMAL) CBC with platelets (05/08/2024 [...] BLOOD ORDERABLES Final R esult CR LABORATORY [facility] [place] [facility] [address] [facility] (no room number, 1st floor of clinic) [place] [address], [facility] * UA Macroscopic with reflex to [...] 05/08/2024 2:51 PM CDT CR LABORATORY Specific [place] Urine 1.010 1.003 - 1.035 05/08/2024 2:51 [...] URINE ORDERABLES Final R esult CR LABORATORY [facility] [place] Lab [address] [facility] (no room number, 1st floor of clinic) [place] [address], [facility] * ZIO PATCH 48 HOURS INTERPRETATION (04/28/2024 1:43 PM CDT) Anatomical Region Laterality Modality Other Narrative 04/28/2024 1:45 PM CDT Agree with findings Symptoms reported (9 episodes) were mostly related to sinus rhythm One episode of AV Wenkebach at 6:17 AM - commonly noted in young patients in early AM. Radha Lomeli APRN CLIENT SERVICE PROFESSIONAL [facility] CARDIAC SERVICES ORDERA BLES Final Result * Chlamydia & Gonorrhea by PCR, [facility] - [facility] Collect (2024 10:11 AM CDT) Chlamydia Trachomatis Negative Negative 04/24/2024 11:19 AM CDT [facility]ORAT[facility] Comment: Negative for C. trachomatis rRNA by dietetics director mediated amplification. A negative result by dietetics director mediated amplification does not preclude the presence of infection because results are dependent on proper and adequate collection, absence of inhibitors and sufficient rRNA to be detected. Neisseria gonorrhoeae Negative Negative 04/24/2024 11:19 AM CDT [facility] Comment:Negative for N. gono rrhoeae rRNA by dietetics director mediated amplification. A negative result by dietetics director mediated amplification does not preclude the presence of C. trachomatis infection because results are dependent on proper and adequate collection, absence of inhibitors and sufficient rRNA to be detected. Swab VAGINAL STRUCTURE / Unknown Non-blood Collection / Unknown 2024 10:11 AM CDT 2024 10:34 AM CDT Esha Grimm PA-C LAB - MICRO GENERAL ORDERABLES Final Result [facility] Inf. Diseases Diag. Lab [address] [facility], [address] [place] [address], [facility] * Urinalysis Macroscopic (2024 10:11 AM CDT) Color Urine Yellow Colorless, Straw, Light Yellow, Yellow 2024 10:36 AM CDT LABORATORY Appearance Urine Clear Clear 04/23/20 10:36 AM CDT LV LABORATORY Glucose Urine Negative Negative mg/dL 2024 10:36 AM CDT [facility] LAB[facility] Bilirubin Urine Negative Negative 10:36 AM CDT [facility] LAB[facility] Ketones Urine Negative Negative mg/dL 2024 10:36 AM CDT [facility] Specific [place] Urine >=1.030 1.003 - 1.035 2024 10:36 [...] URINE ORDERABLES Final R esult LV LABORATORY [facility] Lab [address] [facility] (no room number, 1st floor of clinic) [place] [address], [place] * Pap screen reflex to HPV [...] component of this testing was completed at [facility] 09/25/2021 10:27 AM CDT SPECIALTY LABS Brushing CERVIX UTERI STRUCTURE / Unknown 09/22/2021 3:14 PM CDT 09/22/2021 3:48 PM CDT Marija Edgar APRN CLIENT SERVICE PROFESSIONAL LAB - [place] AP Final Re sult SPECIALTY LABS Specialty Lab [address] [facility] [address] [facility], [address] [place] [address], [facility] [phone] from Last 3 Months or Most Recently Relevant to Health Maintenance Insurance [facility] [address] [address] [facility] * Guarantor: Kim Johnson Account Type Relation to Patient Date of Phone Billing Address Medication Therapy Self [address] [place] [phone] [facility] * Guarantor: Kim Johnson Account Type Relation to Patient Date of Phone Billing Address Medication Therapy Self [address] [place] [phone] [facility] Advance Directives For more information, please contact: [phone] * Full Code (Latest Code Status on File) Date Activated Date Inactivated Comments 01/14/2021 7:36 AM 01/15/2021 6:05 PM All basic and advanced life-sustaining interventions are performed as appropriate Question Answer Comments Code status determined by: Discussion with patie nt/ legal decision maker Care Teams Shipyard Painter Apprentice Relationship Specialty Start Date End Date Esha Grimm PA-C [address] [place] [phone] PCP - General Family Medicine 05/04/23 Diana Desir, [facility] [address] [place] [address] Pharmacist Pharmacist 04/17/21 Rain Galaviz PA-C [address] [place] [address] [address] [place] [address] Physician Foot Tender Dermatology 04/28/21 Tavia Wyatt MD [address] [place] [address] [address] [place] [address] Dermatology 07/14/21 Erica Farrell APRN CLIENT SERVICE PROFESSIONAL [address] [facility] [address] [place], [place] 2637[address] Nurse Practitioner Cardiovascular Disease 09/09/21 Rich Barrett MD [address] [phone] Physician Ophthalmology 01/21/22 Neil Kent MD [address] [place] [address] [phone] Dermatology 02/24/22 Diana Desir, [facility] [address] [place], [place] 580216 Assigned MTM Pharmacist 04/07/22 Livan Sharif MD [address], [facility] [address] [place], [place] [address] Cardiovascular Disease 05/14/22 Catherine Cm MD [address] [facility] [address] [place], [place] 552875 Cardiovascular Disease 07/21/22 Valery Veronica, PA-C [address] [place] [address] 419565 Physician Foot Tender Dermatology 07/21/22 Brea Quinn APRN CLIENT SERVICE PROFESSIONAL [address] [place], [place] [phone] Nurse Practitioner Dermatology 09/21/22 Alfonso Renteria MD [address] [facility] [address] [place], [place] 547[address] Assigned Neuroscience Provider 04/02/23 Radha Lomeli APRN CLIENT SERVICE PROFESSIONAL [address] [place], [place] [address] Assigned Heart and Vascular Provider 05/28/23 [place]ena David OD [address] [facility] [place] [address] MD Ophthalmology 06/15/23 Esha Grimm PA-C [address] [place] [phone] Assigned PCP 07/16/23 Valery Veronica PA-C [address] [place] [address] 374545 Physician Foot Tender Dermatology 09/19/23 Rey Tay MD [address] [place] [address] [id number] MD Gastroenterology 09/20/23 Rocky Zepeda DO [address] [place] [address] 793975 Physician Gastroenterology 09/20/23 Philip Dumont MD [address] [place] [address] 724045 Physician Ophthalmology 09/22/23 Meredith Carrera PA-C [address] [place] [address] 352465 Assigned Gastroenterology Provider 11/01/23 Neil Kent MD [address] [place] [address] Dermatology 11/02/23 [place] [address] [place] [address] Neurological Surgery 12/26/23 Audrey Waite PA-C 500 [place] [address] Physician Foot Tender Dermatology 02/28/24 Valery Veronica PA-C [address] [place] [address] Physician Foot Tender Dermatology 04/10/24 Herminia Hatch MD [address] [place] [address] Assigned Rheumatology Provider 07/02/24
--- OUTSIDE RECORDS SUMMARY | 2024-07-22 22:40 | XMS_ITS | Encounter Summary ---
Author Organization [facility] Address [address] [place] [address] Care Team Providers Care Trust Advisor Name Role Phone Diana Desir [facility] Unavailable Rain Galaviz PAUcheC Unavailable aTvia Wyatt MD Unavailable Erica Farrell SAMPLE SHOE INSPECTOR AND REWORKER ORTHODONTIC LABORATORY TECHNICIAN Unavailable Rich Barrett MD Unavailable [phone] Neil Kent MD Unavailable Kendrick Desirelle Stanislav [facility] Unavailable Livan Sharif MD Unavailable Catherine Cm MD Unavailable + Valery Veornica-C Unavailable [phone] Brea Quinn SAMPLE SHOE INSPECTOR AND REWORKER ORTHODONTIC LABORATORY TECHNICIAN Unavailable Alfonso Renteria MD Unavailable [phone] Esha GrimmC Primary Care Provider [phone] Radha Lomeli SAMPLE SHOE INSPECTOR AND REWORKER ORTHODONTIC LABORATORY TECHNICIAN Unavailable Jelena David OD Unavailable Esha Grimm PA-C Unavailable [phone] Valery VeronicaC Unavailable Rey Tay MD Unavailable Rocky Zepeda DO Unavailable Philip Dumont MD Unavailable [phone] Meredith CarreraC Unavailable [phone] Neil Kent MD Unavailable Juan Pablo Emmanuel MD Unavailable Audrey WaiteC Unavailable [phone] Valery VeronicaC Unavailable [phone] Herminia Hatch MD Unavailable Encounter Details Date Type Department Care Team (Late st Contact Info) Description 07/17/2024 12:30 PM MOLD FILLER AND DRAINER E-Visit [facility] [id number] [place] [phone] Esha Grimm PA-C [id number] [place] [phone] Bacterial vaginosis (Primary Dx) Social History [...] week 05/07/2024 How often do you attend [facility] or alevism services? 1 to 4 times [...] Answer Date Recorded PHQ-2 Score 1 02/07/2024 [facility] - [...] exercise at this level? 20 min 05/07/2024 [place] Depression Scale Answer Date Recorded [place] [...] in an overnight chcf, or couch-surfing.) Yes 05/07/2024 Are you worried [...] PM CDT Legal Sex Female 4:13 AM MOLD FILLER AND DRAINER Gender Identity Female 03/02/2021 5:45 PM CDT Sexual Orientation Straight 02/28/2020 12 :51 AM CDT documented as of this encounter Miscellaneous Notes * Telephone Encounter - Esha Grimm PA-C - 07/17/2024 12:44 PM CST Provider E-Visit time total (minutes): 12 FILLER AND DRAINER documented in this encounter Plan of Treatment Upcoming Encounters Date Type Department Care Team (Late st Contact Info) Description 10/23/2024 9:30 AM CDT Office Visit [facility] Neurology [facility] - [address], [address] [place] [address] [place] [address] [place] [address] Johnny Penn MD [address] [address] 11/28/2024 7:45 AM CDT Virtual Visit [facility] [address] 4th [place] [phone] Meredith Carrera PA-C [address] [place] [address] documented as of this encounter Visit Diagnoses Diagnosis Bacterial vaginosis- Primary Vaginitis and vulvovaginitis, unspecified documented in this encounter Additional Health Concerns Assessment Noted Time PHQ-9 Depression Total Score: 3 02/07/20 24 9:33 AM CDT documented as of this encounter Care Teams Trust Advisor Relationship Specialty Start Date End Date Esha Grimm PA-C [address] [place] [phone] PCP - General Family Medicine 05/04/23 Diana Desir, [facility] [address] [place] [address] Pharmacist Pharmacist 04/17/21 Rain Galaviz PA-C [address] [place] [address] [place] [address] Physician Family Literacy Coordinator Dermatology 04/28/21 Tavia Wyatt MD [address] [place] [address] [place] [address] Dermatology 07/14/21 Erica Farrell APRN ORTHODONTIC LABORATORY TECHNICIAN [address] [place], [place] 4330[address] Nurse Practitioner Cardiovascular Disease 09/09/21 Rich Barrett MD [address] [facility] CLIN[facility] [address] [place], [place] [address] Physician Ophthalmology 01/21/22 Neil Kent MD 500 [place], [place] 122685 Dermatology 02/24/22 Diana Desir, [facility] [address] [place] [address] Assigned [facility] Pharmacist 04/07/22 Livan Sharif MD [address], [facility] [address] [place], [place] 3189[address] Cardiovascular Disease 05/14/22 Catherine Cm MD [address] [address] Cardiovascular Disease 07/21/22 Valery Veronica, PA-C [address] [place], [place] 086835 Physician Family Literacy Coordinator Dermatology 07/21/22 Brea Quinn APRN ORTHODONTIC LABORATORY TECHNICIAN [address] [place], [place] [phone] Nurse Practitioner Dermatology 09/21/22 Alfonso Renteria MD [address] [place] [address] [place] [address] Assigned Neuroscience Provider 04/02/23 Radha Lomeli APRN ORTHODONTIC LABORATORY TECHNICIAN [address] [facility] [address] [place] [address] Assigned Heart and Vascular Provider 05/28/23 Jelena David OD [address] [facility] [address] [place] [phone] MD Ophthalmology 06/15/23 Esha Grimm PA-C [address] [place] [phone] Assigned PCP 07/16/23 Valery Veronica PA-C [address] [place] [address] 604735 Physician Family Literacy Coordinator Dermatology 09/19/23 Rey Tay MD [address] [place] [address] 456845 Gastroenterology 09/20/23 Rocky Zepeda DO [address] [place] [address] 974865 Physician Gastroenterology 09/20/23 Philip Dumont MD [address] [place] [address] 793205 Physician Ophthalmology 09/22/23 Meredith Carrera PA-C [address] [place] [address] Assigned Gastroenterology Provider 11/01/23 Neil Kent MD [address] [address] Dermatology 11/02/23 [place] [address] [place] [address] Neurological Surgery 12/26/23 Audrey Waite PA-C 500 [place] [address] Physician Family Literacy Coordinator Dermatology 02/28/24 Valery Veronica PA-C 516742 [address] [address] Physician Family Literacy Coordinator Dermatology 04/10/24 Herminia Hatch MD [facility]5 [place] [address] Assigned Rheumatology Provider 07/02/24 documented as of this encounter
--- OUTSIDE RECORDS SUMMARY | 2024-07-22 22:40 | XMS_ITS | Clinical Summary ---
Author Organization [facility] Address [place], [place] [address] Care Team Providers Care Member Services Representative Name Role Phone Pcp, No Primary Care Provider Unavailabl e Clinic, No Pcp Or Unavailable Unavailable Allergies Active Allergy Reactions Criticality Noted Date Comments Vancomycin Other - Describe In Comment Field Medications biotin-silicon bbyk-O-rszyatux 3,000 mcg -100 mg-50 mg TbER Take [...] on file Legal Sex Female 2:29 PM ELEVATOR ATTENDANT Gender Identity Not on file Sexual Orientation [...] (196 lb 14.4 oz) 019 11:46 AM ELEVATOR ATTENDANT Height 166.5 cm (5' 5.55) 08/31/2018 1 1:46 AM ELEVATOR ATTENDANT Body Mass Index 32.22 08/31/2018 11:46 AM ELEVATOR ATTENDANT Plan of Treatment Health Maintenance Due Date [...] to complete this topic Insurance Care Teams Member Services Representative Relationship Specialty Start Date End Date Pcp, No . PCP - General 03/25/24 Clinic, No Pcp Or . 03/25/24
--- OUTSIDE RECORDS SUMMARY | 2024-07-22 22:40 | XMS_ITS | Referral Summary ---
Author Organization [place] Address [address] [place] [address] Care Team Providers Care Associate Dean Name Role Phone Diana Desir [facility] Unavailable Rain Galaviz PAUcheC Unavailable [phone] Tavia Wyatt MD Unavailable Erica Farrell DINING CAR HOP BANANA EXPERT Unavailable Rich Barrett MD Unavailable [phone] Neil Kent MD Unavailable Kendrick Desirelle Stanislav [facility] Unavailable Livan Sharif MD Unavailable Catherine Cm MD Unavailable + Valery Veronica-C Unavailable Brea Quinn DINING [employer] BANANA EXPERT Unavailable Alfonso Renteria MD Unavailable [phone] Esha GrimmC Primary Care Provider [phone] Radha Lomeli DINING [employer]OP BANANA EXPERT Unavailable Jelena David OD Unavailable Alfa, Esha M PA-C Unavailable [phone] Valery Veronica PA-C Unavailable [phone] Rey Tay MD Unavailable Rocky Zepeda DO Unavailable Philip Dumont MD Unavailable Meredith Carrera PA-C Unavailable [phone] Neil Kent MD Unavailable Juan Pablo Emmanuel MD Unavailable [phone] Audrey Waite PA-C Unavailable Valery Veronica PA-C Unavailable [phone] Herminia Hatch MD Unavailable Encounters Date Type Department Care Team Description 07/17/2024 12:30 PM SPECIAL PROJECTS MANAGER E-Visit [address] [phone] Esha Grimm PA-C Bacterial vaginosis (Primary Dx) 07/16/2024 MyC Medical Advice [address] [phone] Esha Grimm PA-C Patient Request for Note/Letter; Medicatio... 07/12/2024 Telephone [facility] Neurology [address], [address] [place] [address] Johnny Penn MD Appointment 06/21/2024 Travel 06/21/2024 4:30 PM SPECIAL PROJECTS MANAGER Lab [facility] [address] [place] [address] Vaginal discharge; Screen for STD (sexually transmitted disease) 06/21/2024 MyC Medical Advice [address] [phone] Antonella Eldridge RN 06/21/2024 PRE VISIT [facility] - [place] [address] [place] [address], [address] [place] [phone] Johnny Penn MD Previsit 06/20/2024 MyC Medical Advice [facility] Heart [facility] [address] [facility] [address] [place] [phone] Carley Myles RN 06/20/2024 Refill [facility] [address] [place] [phone] Brea Quinn, DINING CAR HOP BANANA EXPERT Refill Request (Tacrolimus 0.1% ointment & Triamcinolone 0.1% ointment) 06/20/2024 Telephone [facility] [address] [facility] [address] [place] [phone] Radha Lomeli, DINING CAR HOP BANANA EXPERT Call Back 06/08/2024 Telephone [facility] [address] [place] [phone] Esha Grimm PA-C Medication Question 06/06/[address] [facility] Special[facility] Laboratories [address] [place] [phone] Outside, Provider 06/05/2024 Travel 06/05/2024 5:15 PM SPECIAL PROJECTS MANAGER Office Visit [facility] [place] [address] [place] [phone] Jaron Hager PABaldo Lymphadenopathy (Primary Dx); Chest pain, unspecified type 06/05/2024 MyC Medical Advice [facility] Specialty [facility] [place] [address] [place] [phone] Herminia Hatch MD 05/31/2024 4:30 PM SPECIAL PROJECTS MANAGER Lab [facility] [address] [place] [phone] Psoriatic arthritis (H); Tuberculosis screening; Encounter for hepatitis C screening test for low risk patient 05/31/2024 Travel 05/31/2024 3:30 PM SPECIAL PROJECTS MANAGER Office Visit [facility] Specialty [facility] [address] [place] [address] Audrey Díaz, Herminia Koo MD Psoriatic arthritis (H) (Primary Dx); Psoriasis; Chronic bilateral low back pain without sciatica; Encounter to discuss treatment options; Tuberculosis screening; Need for hepatitis B screening test; Encounter for hepatitis C screening test for low risk patient 05/28/2024 Travel 05/18/2024 Refill [facility] [address] [facility] [address] [place] [address] Radha Lomeli APRN BANANA EXPERT Refill Request (metoprolol) 05/17/2024 9:30 AM SPECIAL PROJECTS MANAGER Virtual Visit [address] [phone] Diana Desir, [facility] Anxiety (Primary Dx); Moderate major depression (H); 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 with body mass index (BMI) of 31.0 to 31.9 in adult 05/14/2024 Travel 05/14/2024 2:50 PM SPECIAL PROJECTS MANAGER Therapy Visit [facility] [address] [place] [address] Ingris Thompson PT Neck pain (Primary Dx) 05/11/2024 MyC Medical Advice [address] [phone] Esha Grimm PA-C 05/08/2024 Telephone [facility] Ep[facility]psy [facility] [address] [facility], [address] [place] [address] Alfonso Renteria MD Forms (DMV(LOC)) 05/08/2024 Travel 05/08/2024 1:30 PM CDT Office Visit [address] [phone] Lauren Cluadio PA-C Holm, Kayla M, PA-C Routine general medical examination at a health care facility (Primary Dx); Other ventricular tachycardia (H); CYP2C9 intermediate metabolizer (H); Moderate major depression (H); Shortness of breath; Psoriasis; Vaginal discomfort 05/07/2024 Travel 04/24/[address] [facility] [address] [facility] [address] [place] [phone] Natali Serrano RN 04/24/2024 MyC Medical Advice [facility] [address] [facility] [address] [place] [phone] Radha Lomeli APRN BANANA EXPERT 04/24/[address] [facility] [address] [facility] [address] [place] [phone] Rani Gross RN Results 2024 Travel 2024 10:00 AM CDT Lab [facility] [address] [place] [phone] Screen for STD (sexually transmitted disease) 04/22/2024 8:50 AM CDT E-Visit [address] [phone] Esha Grimm PA-C Screen for [...] available in ED consider consultation with ED Training And Development Officer. Relevant Medical History (at time Care [...] to initiation of Care Plan: 11 Total [facility] Hospital Admissions in 12 months prior to initiation of Care Plan: 0 (she has technically had 2 admissions due to related issues with OBGYN) Expected home rescue plan: Metoprolol 12.5mg PRN PCP: Marija Edgar APRN CNP - Family Medicine - [facility] Specialists: Dr. Galo Burrell - Cardiology - [facility] [place] Dr. Keisha Dotson - Neurology - [facility] Epilepsy Care Care Coordination: Has worked with Community Health Worker in past - ARACELIS Parker, Clinical Care Coordination - 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 1 to 4 [...] 1 02/07/2024 [facility] Health - Occupational Stress Questionnaire Answer [...] exercise at this level? 20 min 05/07/2024 [place] Depression Scale Answer Date Recorded [place] Depression Score 5 01/14/2021 Last EPDS Self [...] an overnight skilled nursing, or couch-surfing.) Yes 05/07/2024 Are you worried [...] CDT Legal Sex Female 4:13 AM SPECIAL PROJECTS MANAGER Gender Identity Female 03/02/2021 5:45 PM CDT Sexual Orientation Straight 02/28/2020 12 :51 AM CDT Last Filed Vital Signs Vital Sign Reading Time Taken Comments Blood Pressure 104/62 06/05/2024 5:21 PM SPECIAL PROJECTS MANAGER Pulse 79 06/05/2024 5:21 PM SPECIAL PROJECTS MANAGER Temperature 36.7 C (98.1 F) 06/05/2024 5:21 PM SPECIAL PROJECTS MANAGER Respiratory Rate 18 06/05/2024 5:21 PM SPECIAL PROJECTS MANAGER Oxygen Saturation 99% 06/05/2024 5:21 PM SPECIAL PROJECTS MANAGER Inhaled Oxygen Concentration - - Weight 90.9 kg (200 lb 4.8 oz) 06/05/2024 5:21 P M SPECIAL PROJECTS MANAGER Height 167.6 cm (5' 6) 05/31/2024 3:37 PM SPECIAL PROJECTS MANAGER Body Mass Index 32.33 05/31/2024 3:37 PM SPECIAL PROJECTS MANAGER Plan of Treatment Upcoming Encounters Date Type Department Care Team (Late st Contact Info) Description 10/23/2024 9:30 AM CDT Office Visit [facility] [place] [address] [place] [address], [address] [place] [phone] [place] [address] [place] [phone] Johnny Penn MD [address] [facility] [place], [place] [phone] 11/28/2024 7:45 AM CDT Virtual Visit [facility]ology [facility] [address] [place] [phone] Meredith Carrera PA-C [address] [place] [address] Procedures Procedure Name Priority Date/Time Associated Diagnosis Comments NEISSERIA GONORRHOEAE PCR Routine 06/21/2024 4:22 PM SPECIAL PROJECTS MANAGER Screen for STD (sexually transmitted disease) CHLAMYDIA TRACHOMATIS PCR Routine 06/21/2024 4:22 PM SPECIAL PROJECTS MANAGER Screen for STD (sexually transmitted disease) WET PREPARATION Routine 06/21/2024 4:22 PM SPECIAL PROJECTS MANAGER Vaginal discharge TREPONEMA ABS W REFLEX TO RPR AND TITER Routine 06/21/2024 4:22 PM SPECIAL PROJECTS MANAGER Screen for STD (sexually transmitted disease) HIV ANTIGEN ANTIBODY COMBO Routine 06/21/2024 4:22 PM SPECIAL PROJECTS MANAGER Screen for STD (sexually transmitted disease) HLA RESULT REPORT 06/06/2024 2:0 4 PM SPECIAL PROJECTS MANAGER GROUP A STREPTOCOCCUS PCR THROAT SWAB Routine 06/05/2024 6:28 PM SPECIAL PROJECTS MANAGER Lymphadenopathy STREPTOCOCCUS A RAPID SCREEN W REFELX TO PCR Routine 06/05/2024 6:28 PM SPECIAL PROJECTS MANAGER Lymphadenopathy EKG 12-LEAD COMPLETE W/READ - CLINICS Routine 06/05/2024 Lymphadenopathy QUANTIFERON-TB GOLD PLUS Routine 05/31/2024 4:44 PM SPECIAL PROJECTS MANAGER Psoriatic arthritis (H) Tuberculosis screening Encounter for hepatitis C screening test for low risk patient QUANTIFERON TB GOLD PLUS Routine 05/31/2024 4:44 PM SPECIAL PROJECTS MANAGER Psoriatic arthritis (H) Tuberculosis screening Encounter for hepatitis C screening test for low risk patient QUANTIFERON TB GOLD PLUS PURPLE TUBE Routine 05/31/2024 4:44 PM SPECIAL PROJECTS MANAGER Psoriatic arthritis (H) Tuberculosis screening Encounter for hepatitis C screening test for low risk patient QUANTIFERON TB GOLD PLUS YELLOW TUBE Routine 05/31/2024 4:44 PM SPECIAL PROJECTS MANAGER Psoriatic arthritis (H) Tuberculosis screening Encounter for hepatitis C screening test for low risk patient QUANTIFERON TB GOLD PLUS GREEN TUBE Routine 05/31/2024 4:44 PM SPECIAL PROJECTS MANAGER Psoriatic arthritis (H) Tuberculosis screening Encounter for hepatitis C screening test for low risk patient QUANTIFERON TB GOLD PLUS GIL TUBE Routine 05/31/2024 4:44 PM SPECIAL PROJECTS MANAGER Psoriatic arthritis (H) Tuberculosis screening Encounter for hepatitis C screening test for low risk patient RHEUMATOID FACTOR Routine 05/31/2024 4:4 3 PM SPECIAL PROJECTS MANAGER Psoriatic arthritis (H) Tuberculosis screening Encounter for hepatitis C screening test for low risk patient CYCLIC CITRULLINATED PEPTIDE ANTIBODY IGG Routine 05/31/2024 4:43 PM SPECIAL PROJECTS MANAGER Psoriatic arthritis (H) Tuberculosis screening Encounter for hepatitis C screening test for low risk patient HEPATITIS C ANTIBODY Routine 05/31/2024 4:42 PM SPECIAL PROJECTS MANAGER Psoriatic arthritis (H) Tuberculosis screening Encounter for hepatitis C screening test for low risk patient HEPATITIS B SURFACE ANTIGEN Routine 05/31/2024 4:42 PM SPECIAL PROJECTS MANAGER Psoriatic arthritis (H) Tuberculosis screening Encounter for hepatitis C screening test for low risk patient HEPATITIS B SURFACE ANTIBODY Routine 05/31/2024 4:42 PM SPECIAL PROJECTS MANAGER Psoriatic arthritis (H) Tuberculosis screening Encounter for hepatitis C screening test for low risk patient HEPATITIS B CORE ANTIBODY Routine 05/31/2024 4:42 PM SPECIAL PROJECTS MANAGER Psoriatic arthritis (H) Tuberculosis screening Encounter for hepatitis C screening test for low risk patient ERYTHROCYTE SEDIMENTATION RATE AUTO Routine 05/31/2024 4:42 PM SPECIAL PROJECTS MANAGER Psoriatic arthritis (H) Tuberculosis screening Encounter for hepatitis C screening test for low risk patient CRP INFLAMMATION Routine 05/31/2024 4:42 PM SPECIAL PROJECTS MANAGER Psoriatic arthritis (H) Tuberculosis screening Encounter for hepatitis C screening test for low risk patient HLA-B27 TYPING Routine 05/31/2024 4:41 PM SPECIAL PROJECTS MANAGER Psoriatic arthritis (H) Tuberculosis screening Encounter for [...] HIV Antigen Antibody Combo (06/21/2024 4:22 PM SPECIAL PROJECTS MANAGER) Only the most recent of2 resultswithin the time period is included. HIV Antigen Antibody Combo Nonreactive Nonreactive 06/22/2024 6:16 PM SPECIAL PROJECTS MANAGER [facility] Comment:Negative HIV-1 p24 a ntigen [...] Unknown Venipuncture / Unknown 06/21/2024 4:22 PM SPECIAL PROJECTS MANAGER 06/21/2024 4:30 PM SPECIAL PROJECTS MANAGER Esha Grmim PA-C LAB - BLOOD ORDERABLES Final R esult Performing Organization Address City/[facility]/ZIP Co de Phone Number [facility] [place] Core Lab [address] [facility], [address] * Treponema Abs w Reflex to RPR and Titer (06/21/2024 4:22 PM SPECIAL PROJECTS MANAGER) Only the most recent of2 resultswithin the time period is included. Treponema Antibody Total Nonreactive Nonreactive 06/22/2024 6:47 PM SPECIAL PROJECTS MANAGER SPECIALTY CORE/PROT/EN DO Blood BLOOD SPECIMEN / Unknown Venipuncture / Unknown 06/21/2024 4:22 PM SPECIAL PROJECTS MANAGER 06/21/2024 4:30 PM SPECIAL PROJECTS MANAGER Esha Grimm PA-C LAB - BLOOD ORDERABLES Final R ult Performing Organization Address [facility] Co de Phone Number SPECIALTY CORE/PROT/ENDO Specialty Core/Prot/Endo [address] [facility], [address] * (ABNORMAL) Wet preparation (06/21/2024 4:22 PM SPECIAL PROJECTS MANAGER) Only the most recent of3 resultswithin the time period is included. Trichomonas Absent Absent REINA 06/21/2024 4:42 PM SPECIAL PROJECTS MANAGER [facility] Yeast Present(A) Absent REINA 06/21/2024 4:42 PM SPECIAL PROJECTS MANAGER [facility] Clue Cells Absent Absent REINA 06/21/2024 4:42 PM SPECIAL PROJECTS MANAGER [facility] WBCs/high power field 3+(A) None REINA 06/21/2024 4:42 PM SPECIAL PROJECTS MANAGER [facility] Swab VAGINAL STRUCTURE / Unknown Non-blood Collection / Unknown 06/21/2024 4:22 PM SPECIAL PROJECTS MANAGER 06/21/2024 4:36 PM SPECIAL PROJECTS MANAGER us Esha Grimm PA-C LAB - MICRO GENERAL ORDERABLES Final Result LABORATORY [facility] [address] [facility] Lab (no room number, 1st floor of clinic) [place] [address], [facility] * Neisseria gonorrhoeae PCR (06/21/2024 4:22 PM SPECIAL PROJECTS MANAGER) Neisseria gonorrhoeae Negative Negative 06/22/2024 5:48 PM SPECIAL PROJECTS MANAGER [facility] Comment:Negative for N. gono rrhoeae rRNA by fraud examiner mediated amplification. A negative result by fraud examiner mediated amplification does not preclude the presence of C. trachomatis infection because results are dependent on proper and adequate collection, absence of inhibitors and sufficient rRNA to be detected. Swab VAGINAL STRUCTURE / Unknown Non-blood Collection / Unknown 06/21/2024 4:22 PM SPECIAL PROJECTS MANAGER 06/21/2024 4:36 PM SPECIAL PROJECTS MANAGER us Esha Grimm PA-C LAB - MICRO GENERAL ORDERABLES Final Result [facility] Inf. Diseases Diag. Lab [address] [facility], [address] [place] [address], [facility] * Chlamydia trachomatis PCR (06/21/2024 4:22 PM SPECIAL PROJECTS MANAGER) Chlamydia trachomatis Negative Negative 06/22/2024 5:48 PM SPECIAL PROJECTS MANAGER [facility] Comment:A negative result by fraud examiner mediated amplification does not preclude the presence of C. trachomatis infection because results are dependent on proper and adequate collection, absence of inhibitors and sufficient rRNA to be detected. Swab VAGINAL STRUCTURE / Unknown Non-blood Collection / Unknown 06/21/2024 4:22 PM SPECIAL PROJECTS MANAGER 06/21/2024 4:36 PM SPECIAL PROJECTS MANAGER us Esha Grimm PA-C LAB - MICRO GENERAL ORDERABLES Final Result [facility] Inf. Diseases Diag. Lab [address] [facility], [address] [place] [address] * HLA Result Report (06/06/2024 2:04 PM SPECIAL PROJECTS MANAGER) us Provider Outside LAB - IMMUNOLOGY ORDERABLES Fin al Result * Streptococcus A Rapid Screen w/Reflex to PCR - Clinic Collect (06/05/2024 6:28 PM SPECIAL PROJECTS MANAGER) Group A Strep antigen Negative Negative 06/05/2024 6:50 PM SPECIAL PROJECTS MANAGER [facility] Swab STRUCTURE OF ANTERIOR PORTION OF NECK / Unknown Non-blood Collection / Unknown 06/05/2024 6:28 PM SPECIAL PROJECTS MANAGER 06/05/2024 6:44 PM SPECIAL PROJECTS MANAGER Jaron Hager PA-C LAB - MICRO GENERAL ORD ERABLES Final Result Performing Organization Address City/[facility]/ZIP Co de Phone Number [facility] [address] [facility] Lab (no room number, 1st floor of clinic) [place] [address], [facility] * Group A Streptococcus PCR Throat Swab (06/05/2024 6:28 PM SPECIAL PROJECTS MANAGER) Pathologist [facility] Group A strep by PCR Not Detected Not Detected 06/06/2024 4:18 PM SPECIAL PROJECTS MANAGER [facility] Swab STRUCTURE OF ANTERIOR PORTION OF NECK / Unknown Non-blood Collection / Unknown 06/05/2024 6:28 PM SPECIAL PROJECTS MANAGER 06/05/2024 6:50 PM SPECIAL PROJECTS MANAGER Narrative [facility] - 06/06/2024 4:18 PM SPECIAL PROJECTS MANAGER The Xpert Xpress Strep A test, performed on the [employer] Instrument Systems, is a rapid, qualitative in [...] ORD ERABLES Final Result [facility] Inf. Diseases Diag. Lab [address] [facility], [address] [place] [address] * EKG 12-lead complete w/read - Clinics (06/05/2024) Jaron Hager PA-C ECG ORDERABLES Final R esult * Quantiferon TB Gold Plus (05/31/2024 4:44 PM SPECIAL PROJECTS MANAGER) [facility] Quantiferon-TB Gold Plus Negative Negative 06/02/2024 9:45 AM SPECIAL PROJECTS MANAGER SPECIALTY CORE/PROT/END O Comment: No interferon gamma [...] Nil Value -0.05 IU/mL 06/02/2024 9:45 AM SPECIAL PROJECTS MANAGER SPECIALTY CORE/PROT/END O TB2 Ag minus Nil Value 0.05 IU/mL 06/02/2024 9:45 AM SPECIAL PROJECTS MANAGER SPECIALTY CORE/PROT/END O Mitogen minus Nil Result 9.73 IU/mL 06/02/2024 9:45 AM SPECIAL PROJECTS MANAGER SPECIALTY CORE/PROT/END O Nil Result 0.27 IU/mL 06/02/2024 9:45 AM SPECIAL PROJECTS MANAGER SPECIALTY CORE/PROT/END O Blood BLOOD SPECIMEN / Unknown Venipuncture / Unknown 05/31/2024 4:44 PM SPECIAL PROJECTS MANAGER 05/31/2024 4:44 PM SPECIAL PROJECTS MANAGER Herminia Hatch MD LAB - MICRO GENERAL ORDERABLES F inal Result [facility] SPECIALTY CORE/PROT/ENDO [facility] Specialty Core/Prot/Endo [address] [facility], [address] [place] [address] * Quantiferon TB Gold Plus Purple Tube (05/31/2024 4:44 PM SPECIAL PROJECTS MANAGER) Quantiferon Mitogen 10.00 IU/mL 06/02/2024 9:11 AM SPECIAL PROJECTS MANAGER [facility] SPECIALTY CORE/PROT/ENDO Blood BLOOD SPECIMEN / Unknown Venipuncture / Unknown 05/31/2024 4:44 PM SPECIAL PROJECTS MANAGER 05/31/2024 4:44 PM SPECIAL PROJECTS MANAGER Herminia Hatch MD LAB - MICRO GENERAL ORDERABLES F inal Result UM SPECIALTY CORE/PROT/ENDO [facility] Specialty Core/Prot/Endo [address] [facility], [address] * Quantiferon TB Gold Plus Yellow Tube (05/31/2024 4:44 PM SPECIAL PROJECTS MANAGER) Quantiferon TB2 Tube 0.32 06/02/2024 9:11 AM SPECIAL PROJECTS MANAGER SPECIALTY CORE/PROT/ENDO Blood BLOOD SPECIMEN / Unknown Venipuncture / Unknown 05/31/2024 4:44 PM SPECIAL PROJECTS MANAGER 05/31/2024 4:44 PM SPECIAL PROJECTS MANAGER us Herminia Hatch MD LAB - MICRO GENERAL ORDERABLES F inal Result UM SPECIALTY CORE/PROT/ENDO Specialty Core/Prot/Endo [address] [facility], [address] * Quantiferon TB Gold Plus Green Tube (05/31/2024 4:44 PM SPECIAL PROJECTS MANAGER) Quantiferon TB1 Tube 0.22 IU/mL 06/02/2024 9:11 AM SPECIAL PROJECTS MANAGER SPECIALTY CORE/PROT/ENDO Blood BLOOD SPECIMEN / Unknown Venipuncture / Unknown 05/31/2024 4:44 PM SPECIAL PROJECTS MANAGER 05/31/2024 4:44 PM SPECIAL PROJECTS MANAGER us Herminia Hatch MD LAB - MICRO GENERAL ORDERABLES F inal Result UM SPECIALTY CORE/PROT/ENDO [facility] Specialty Core/Prot/Endo [address] [facility] Unit Building, [address] * Quantiferon TB Gold Plus Gli Tube (05/31/2024 4:44 PM SPECIAL PROJECTS MANAGER) Quantiferon Nil Tube 0.27 IU/mL 06/02/2024 9:11 AM SPECIAL PROJECTS MANAGER [facility] SPECIALTY CORE/PROT/ENDO Blood BLOOD SPECIMEN / Unknown Venipuncture / Unknown 05/31/2024 4:44 PM SPECIAL PROJECTS MANAGER 05/31/2024 4:44 PM SPECIAL PROJECTS MANAGER us Herminia Hatch MD LAB - MICRO GENERAL ORDERABLES F inal Result UM SPECIALTY CORE/PROT/ENDO UM Specialty Core/Prot/Endo [address] [facility] [address] [facility], Room [address] * Cyclic Citrullinated Peptide Antibody IgG (05/31/2024 4:43 PM SPECIAL PROJECTS MANAGER) Cyclic Citrullinated Peptide Antibody IgG 1.7 <7.0 U/mL 06/02/2024 6:47 AM SPECIAL PROJECTS MANAGER [facility] SPECIALTY CORE/PROT/END O Comment:Negative Blood BLOOD SPECIMEN / Unknown Venipuncture / Unknown 05/31/2024 4:43 PM SPECIAL PROJECTS MANAGER 05/31/2024 4:43 PM SPECIAL PROJECTS MANAGER us Herminia Hatch MD LAB - BLOOD ORDERABLES Final Res ult UM SPECIALTY CORE/PROT/ENDO Specialty Core/Prot/Endo [address] [facility] Unit Building, [address] * Rheumatoid factor (05/31/2024 4:43 PM SPECIAL PROJECTS MANAGER) Rheumatoid Factor <10 <14 IU/mL 06/01/2024 9:02 AM SPECIAL PROJECTS MANAGER [facility] Blood BLOOD SPECIMEN / Unknown Venipuncture / Unknown 05/31/2024 4:43 PM SPECIAL PROJECTS MANAGER 05/31/2024 4:43 PM SPECIAL PROJECTS MANAGER Herminia Hatch MD LAB - BLOOD ORDERABLES Final Res ult Performing Organization Address [facility] de Phone Number [facility] [place] Core Lab [address] [facility], [address] [phone] * Hepatitis B Surface Antibody (05/31/2024 4:42 PM SPECIAL PROJECTS MANAGER) Hepatitis B Surface Antibody Nonreactive 06/01/2024 9:23 AM SPECIAL PROJECTS MANAGER [facility] Comment:Nonreactive results, defined as anti-HBs levels of less than 8.5 mIU/mL, indicate a lack of recovery from acute or chronic hepatitis B or inadequate immune response to HBV vaccination. Hepatitis B Surface Antibody Instrument Value <3.50 <8.5 m[IU]/mL 06/01/2024 9:23 AM SPECIAL PROJECTS MANAGER [facility] Blood BLOOD SPECIMEN / Unknown Venipuncture / Unknown 05/31/2024 4:42 PM SPECIAL PROJECTS MANAGER 05/31/2024 4:42 PM SPECIAL PROJECTS MANAGER us Herminia Hatch MD LAB - BLOOD ORDERABLES Final Res ult Performing Organization Address [facility] Co de Phone Number U [facility] [place] Core Lab [address] [facility], [facility] [address] [phone] * Hepatitis C antibody (05/31/2024 4:42 PM SPECIAL PROJECTS MANAGER) Hepatitis C Antibody Nonreactive Nonreactive 06/01/2024 9:22 AM SPECIAL PROJECTS MANAGER [facility] Comment:A nonreactive screen ing test [...] Unknown Venipuncture / Unknown 05/31/2024 4:42 PM SPECIAL PROJECTS MANAGER 05/31/2024 4:42 PM SPECIAL PROJECTS MANAGER us Herminia Hatch MD LAB - BLOOD ORDERABLES Final Res ult Performing Organization Address City/[facility]/ZIP Co de Phone Number [facility] [place] [facility] [address] [facility], [address] * Hepatitis B surface antigen (05/31/2024 4:42 PM SPECIAL PROJECTS MANAGER) Hepatitis B Surface Antigen Nonreactive Nonreactive 06/01/2024 9:22 AM SPECIAL PROJECTS MANAGER [facility] Blood BLOOD SPECIMEN / Unknown Venipuncture / Unknown 05/31/2024 4:42 PM SPECIAL PROJECTS MANAGER 05/31/2024 4:42 PM SPECIAL PROJECTS MANAGER us Herminia Hatch MD LAB - BLOOD ORDERABLES Final Res ult Performing Organization Address [facility] de Phone Number [facility] [place] [facility] [address] [facility], [address] * Hepatitis B core antibody (05/31/2024 4:42 PM SPECIAL PROJECTS MANAGER) Hepatitis B Core Antibody Total Nonreactive Nonreactive 06/01/2024 9:22 AM SPECIAL PROJECTS MANAGER [facility] Comment:Nonreactive hepatiti s B core antibody test results indicate the absence of exposure to hepatitis B virus and no evidence of recent, past/resolved, or chronic hepatitis B. Blood BLOOD SPECIMEN / Unknown Venipuncture / Unknown 05/31/2024 4:42 PM SPECIAL PROJECTS MANAGER 05/31/2024 4:42 PM SPECIAL PROJECTS MANAGER Result Davida Hatch MD LAB - BLOOD ORDERABLES Final Res ult Performing Organization Address City/[facility]/ZIP Co de Phone Number [facility] [place] [facility] [address] [facility], [address] [place] [address], [place] * Erythrocyte sedimentation rate auto (05/31/2024 4:42 PM SPECIAL PROJECTS MANAGER) Pathologist [facility] Erythrocyte Sedimentation Rate 10 0 - 20 mm/hr 05/31/2024 4:56 PM SPECIAL PROJECTS MANAGER [facility] Blood BLOOD SPECIMEN / Unknown Venipuncture / Unknown 05/31/2024 4:42 PM SPECIAL PROJECTS MANAGER 05/31/2024 4:42 PM SPECIAL PROJECTS MANAGER us Herminia Hatch MD LAB - BLOOD ORDERABLES Final Res ult [facility] Lab [address] [place] [address] [place] [address], [facility] * CRP, inflammation (05/31/2024 4:42 PM SPECIAL PROJECTS MANAGER) [facility] CRP Inflammation <3.00 <5.00 mg/L 05/31/20 4:59 PM SPECIAL PROJECTS MANAGER [facility] Blood BLOOD SPECIMEN / Unknown Venipuncture / Unknown 05/31/2024 4:42 PM SPECIAL PROJECTS MANAGER 05/31/2024 4:42 PM SPECIAL PROJECTS MANAGER us Herminia Hatch MD LAB - BLOOD ORDERABLES Final Res ult Performing Organization Address [facility]/ZIP Co de Phone Number [facility] Lab [address] [place] [address] [place] [address], [facility] * HLA-B27 Typing (05/31/2024 4:41 PM SPECIAL PROJECTS MANAGER) [facility] [id number] METHOD NGS 06/06/2024 2:04 PM SPECIAL PROJECTS MANAGER [facility] B locus B27 Neg 06/06/2024 2:04 PM SPECIAL PROJECTS MANAGER [facility] Blood BLOOD SPECIMEN / Unknown Venipuncture / Unknown 05/31/2024 4:41 PM SPECIAL PROJECTS MANAGER 05/31/2024 4:42 PM SPECIAL PROJECTS MANAGER us Herminia Hatch MD LAB - IMMUNOLOGY ORDERABLES Shira l Result Performing Organization Address City/[facility]/ZIP Co de Phone Number [facility] Immunology/Histocomp atability CLIA: [id number] [facility] [address] [facility] [address] Building, Room [address] [place] [address], [facility] [phone] * (ABNORMAL) Lipid panel reflex to direct [...] BLOOD ORDERABLES Final R esult [facility] [place] [facility] [address] [facility], [address] * Iron and iron binding capacity [...] ORDERABLES Final R esult Performing Organization Address City/[facility]/ZIP Co de Phone Number [facility] LAB[facility]ORY [facility] Core Lab [address] [facility], [address] * Ferritin (05/08/2024 2:49 PM CDT) Pathologist [facility] Ferritin 23 6 - 175 ng/mL 05/08/2024 10:44 PM CDT [facility] Blood BLOOD SPECIMEN / Unknown Venipuncture / Unknown 05/08/2024 2:49 PM CDT 05/08/2024 2:49 PM CDT us Esha Grimm PA-C LAB - BLOOD ORDERABLES Final R esult [facility] [place] [facility] [address] [facility], [address] * Comprehensive metabolic panel (BMP + Alb, Alk Phos, ALT, AST, Total. Bili, TP) (05/08/2024 2:49 PM CDT) Pathologist [facility] Sodium 137 135 - 145 mmol/L [...] BLOOD ORDERABLES Final R esult [facility] [place] [facility] [address] [facility], [address] [place] [address] * (ABNORMAL) CBC with platelets (05/08/2024 2:49 PM CDT) [facility] WBC Count 7.8 4.0 - 11.0 10e3/uL [...] BLOOD ORDERABLES Final R esult [facility] LAB[facility]ORY [facility] [place] Lab [id number] [place] [address] (no room number, 1st floor of clinic) [place] [address], [facility] * UA Macroscopic with reflex to Microscopic [...] 05/08/2024 2:51 PM CDT [facility] LAB[facility] [place] Urine 1.010 1.003 - 1.035 05/08/2024 2:51 [...] URINE ORDERABLES Final R esult [facility] LABOR[facility]ORY [facility] [place] Lab [address] [facility] Lab (no room number, 1st floor of clinic) [place] [address], [facility] * ZIO PATCH 48 HOURS INTERPRETATION (04/28/2024 1:43 PM CDT) Anatomical Region Laterality Modality Other Narrative 04/28/2024 1:45 PM CDT Agree with findings Symptoms reported (9 episodes) were mostly related to sinus rhythm One episode of AV Wenkebach at 6:17 AM - commonly noted in young patients in early AM. Radha Lomeli DINING CAR HOP BANANA EXPERT [facility] ORDERA BLES Final Result * Chlamydia & Gonorrhea by PCR, [facility] Collect (2024 10:11 AM CDT) Chlamydia Trachomatis Negative Negative 04/24/2024 11:19 AM CDT [facility] Comment: Negative for C. trachomatis rRNA by fraud examiner mediated amplification. A negative result by fraud examiner mediated amplification does not preclude the presence of infection because results are dependent on proper and adequate collection, absence of inhibitors and sufficient rRNA to be detected. Neisseria gonorrhoeae Negative Negative 04/24/2024 11:19 AM CDT [facility] Comment:Negative for N. gono rrhoeae rRNA by fraud examiner mediated amplification. A negative result by fraud examiner mediated amplification does not preclude the presence of C. trachomatis infection because results are dependent on proper and adequate collection, absence of inhibitors and sufficient rRNA to be detected. Swab VAGINAL STRUCTURE / Unknown Non-blood Collection / Unknown 2024 10:11 AM CDT 2024 10:34 AM CDT Esha Grimm PA-C LAB - MICRO GENERAL ORDERABLES Final Result [facility] Inf. Diseases Diag. Lab [address] [facility], [address] [place] [address] * Urinalysis Macroscopic (2024 10:11 [...] 2024 10:36 AM CDT [facility] [place] Urine >=1.030 1.003 - 1.035 2024 10:36 [...] - URINE ORDERABLES Final R esult LABORATORY [facility] [place] Lab [address] [facility] (no room number, 1st floor of clinic) [place] [address], [facility] * Pap screen reflex to HPV if [...] component of this testing was completed at [facility] 09/25/2021 10:27 AM CDT [facility] Brushing CERVIX UTERI STRUCTURE / Unknown 09/22/2021 3:14 PM CDT 09/22/2021 3:48 PM CDT Marija BAKER - KANCHAN AP Final Re sult [facility] [address] [facility], [address] [address], [facility] [phone] from Last 3 Months or Most Recently Relevant to Health Maintenance Insurance [facility] [id number] [address] [facility] ADMINISTRATORS * Guarantor: Kim Johnson Account Type Relation to Patient Date of Phone Billing Address Medication Therapy Self [address] [place] [address] [facility] * Guarantor: Kim Johnson Account Type Relation to Patient Date of Phone Billing Address Medication Therapy Self [address] [place] [address] [facility] PMAP [facility] ADMINISTRATORS Advance Directives For more information, please contact: [phone] * Full Code (Latest Code Status on File) Date Activated Date Inactivated Comments 01/14/2021 7:36 AM 01/15/2021 6:05 PM All basic and advanced life-sustaining interventions are performed as appropriate Question Answer Comments Code status determined by: Discussion with shirae nt/ legal decision maker Care Teams Associate Dean Relationship Specialty Start Date End Date Esha Grimm PA-C [address] [place] [address] PCP - General Family Medicine 05/04/23 Diana Desir, [facility] [address] [place] [address] Pharmacist Pharmacist 04/17/21 Rain Galaviz PA-C [address] [place] [address] [address] [place] [address] Physician Oncology Admin Dermatology 04/28/21 Tavia Wyatt MD [address] [place] [address] [address] [place] [address] Dermatology 07/14/21 Eirca Farrell APRN BANANA EXPERT [address] [place] [id number] Nurse Practitioner Cardiovascular Disease 09/09/21 Rich Barrett MD [address] [facility] [address] [place], [place] [address] Physician Ophthalmology 01/21/22 Neil Kent MD [address] [place], [place] [phone] Dermatology 02/24/22 Diana Desir, [facility] [address] [place] [address] Assigned MTM Pharmacist 04/07/22 Livan Sharif MD [address] [place] [address] Cardiovascular Disease 05/14/22 IsCatherine hobbs MD [address] [facility] [address] [place] [address] Cardiovascular Disease 07/21/22 Valery Veronica PA-C [address] [place] [address] 363765 Physician Oncology Admin Dermatology 07/21/22 Brea Quinn DINING CAR HOP BANANA EXPERT [address] [place] [address]60[address] Nurse Practitioner Dermatology 09/21/22 Alfonso Renteria MD [address] [facility] 200 [place], [place] 5766[address] Assigned Neuroscience Provider 04/02/23 Radha Lomeli, DINING CAR HOP BANANA EXPERT [address] [place] [address] Assigned Heart and Vascular Provider 05/28/23 Jelena David OD [address] [facility] [place] [address] Ophthalmology 06/15/23 Esha Grimm PA-C [address] [place] [address] Assigned PCP 07/16/23 Valery Veronica PA-C [address] [place] [address]295 Physician Oncology Admin Dermatology 09/19/23 Rey Tay MD [address] [place] [address] [place] [address] Gastroenterology 09/20/23 Rocky Zepeda DO 500 [place] [address] Physician Gastroenterology 09/20/23 Philip Dumont MD 6 [place] [address] Physician Ophthalmology 09/22/23 Meredith Carrera PA-C 9 [place] [address] Assigned Gastroenterology Provider 11/01/23 Neil Kent MD [address] [address] MD Dermatology 11/02/23 [place] [address] [place] [address] [address] Neurological Surgery 12/26/23 Audrey Waite PA-C 500 [place] [address] Physician Oncology Admin Dermatology 02/28/24 Valery Veronica PA-C 537754 [place] [address] Physician Oncology Admin Dermatology 04/10/24 Herminia Hatch MD [address] [place], [place] [phone] Assigned Rheumatology Provider 07/02/24
--- OUTSIDE RECORDS SUMMARY | 2024-07-22 22:40 | XMS_ITS | Clinical Summary ---
Author Organization [facility] Address [address] [address] Phone Care Team Providers Care Chart Snatcher Name Role Phone Unavailable Primary Care Provider [...] Not on file Insurance BCBS OTHER [facility] Commercial Address: [address] [place] [address]
--- OUTSIDE RECORDS SUMMARY | 2024-07-22 22:40 | XMS_ITS | Clinical Summary ---
Author Organization [employer] Address [address] [place] [address] [address] [place] [address] Care Team Providers Care Book Jacket Cover Machine Operator Name Role Phone Marija Edgar DERRICK BOAT OPERATOR-PERMACULTURE CONTRACTOR Primary Care Provider Provider, No Attributed RESOURCE [...] age to complete this topic Care Teams Book Jacket Cover Machine Operator Relationship Specialty Start Date End Date Marija Edgar, DERRICK BOAT OPERATOR-PERMACULTURE CONTRACTOR [address] [place] [address] PCP - General ROLFER - Family Medicine 01/30/22 Provider, No Attributed, RESOURCE [address] PCP - Attributed Provider 02/01/22
--- OUTSIDE RECORDS SUMMARY | 2024-07-22 22:41 | XMS_ITS | Encounter Summary ---
Author Organization [place] Address [address] [place] [address] Care Team Providers Care Aids Nurse Name Role Phone Diana Desir [facility] Unavailable Rain Galaviz PAUcheC Unavailable Tavia Wyatt MD Unavailable Erica Farrell DISABILITY HEARING OFFICER POWER PRESS OPERATOR Unavailable Rich Barrett MD Unavailable [phone] Neil Kent MD Unavailable Kendrick Desirelle Stanislav [facility] Unavailable Livan Sharif MD Unavailable Catherine Cm MD Unavailable + Valery Veronica-C Unavailable [phone] Brea Quinn DISABILITY HEARING OFFICER POWER PRESS OPERATOR Unavailable Alfonso Renteria MD Unavailable [phone] Esha GrimmC Primary Care Provider Radha Lomeli DISABILITY HEARING OFFICER POWER PRESS OPERATOR Unavailable Jelena David OD Unavailable [place], Esha M PA-C Unavailable [phone] Valery Veronica PA-C Unavailable [phone] Rey Tay MD Unavailable Rocky Zepeda DO Unavailable Philip Dumont MD Unavailable [phone] Meredith CarreraC Unavailable [phone] Neil Kent MD Unavailable Juan Pablo Emmanuel MD Unavailable [phone] Audrey Waite PA-C Unavailable [phone] Valery Veronica PA-C Unavailable [phone] Reason for Visit * Reason Onset Date Comments Medication Question 06/08/2024 Encounter Details Date Type Department Care Team (Late st Contact Info) Description 06/08/2024 Telephone [facility] [address] [place] [address] Esha Grimm PA-C [address] [place] [address] Medication Question Social History Tobacco [...] week 05/07/2024 How often do you attend [facility]? 1 to 4 [...] Answer Date Recorded PHQ-2 Score 1 02/07/2024 [facility] of [...] exercise at this level? 20 min 05/07/2024 Erie Depression Scale Answer Date Recorded Erie Depression Score 5 01/14/2021 Last EPDS Self [...] in an overnight half-way, or couch-surfing.) Yes 05/07/2024 Are you worried [...] PM CDT Legal Sex Female 4:13 AM STAVE CUTTING SUPERVISOR Gender Identity Female 03/02/2021 5:45 PM [...] this time. Pao Marcos RN Clinic RN [facility] E CUTTING SUPERVISOR * Telephone Encounter - Esha Grimm PA-C - 06/08/2024 3:23 PM CST If she is unsure if she took the paxil I would recommend not the dose at this point and to just wait to take her normal dosing tomorrow. Thanks! Esha Grimm PA-C E CUTTING SUPERVISOR * Telephone Encounter - Asiya Reddy RN [...] on paroxetine. Please advise. Asiya Reddy RN E CUTTING SUPERVISOR documented in this encounter Plan of Treatment Upcoming Encounters Date Type Department Care Team (Late st Contact Info) Description 10/23/2024 9:30 AM CDT Office Visit [facility] [address], [address] [place] [phone] [place] [address] [place] [address] [id number] Johnny Penn MD [address] [place], [place] 8746[address] 11/28/2024 7:45 AM CDT Virtual Visit [facility] [address] 4th [place] [phone] Meredith Carrera PA-C [address] [place] [address] documented as of this encounter Visit Diagnoses Not on filedocumented in this encounter Additional Health Concerns Assessment Noted Time PHQ-9 Depression Total Score: 3 02/07/20 24 9:33 AM CDT documented as of this encounter Care Teams Aids Nurse Relationship Specialty Start Date End Date Esha Grimm PA-C [address] [place] [phone] PCP - General Family Medicine 05/04/23 Diana Desir, [facility] [address] [place] [address] Pharmacist Pharmacist 04/17/21 Rain Galaviz PA-C [address] [place] [address] [address] [facility] [place] [place] [address] Physician Retirement Benefits Specialist Dermatology 04/28/21 Tavia Wyatt MD [address] [place] [address] [address] [facility] [place] [address] Dermatology 07/14/21 Erica Farrell APRN POWER PRESS OPERATOR 6[address] [facility] [address] [place] [address] Nurse Practitioner Cardiovascular Disease 09/09/21 Rich Barrett MD [address] 2062[address] Physician Ophthalmology 01/21/22 Neil Kent MD [address] [place] [address] Dermatology 02/24/22 Diana Desir, [facility] [address] [place], [place] [phone] Assigned MTM Pharmacist 04/07/22 Livan Sharif MD [address], [facility] [address] [place] 94[address] Cardiovascular Disease 05/14/22 Catherine Cm MD [address] [facility] [address] [place] [address] Cardiovascular Disease 07/21/22 Valery Veronica, PA-C [address] [place] [address] Physician Retirement Benefits Specialist Dermatology 07/21/22 Brea Quinn APRN POWER PRESS OPERATOR [address] [place], [place] [phone] Nurse Practitioner Dermatology 09/21/22 Alfonso Renteria MD 5775 [facility] 200 [place], [place] [phone] Assigned Neuroscience Provider 04/02/23 Radha Lomeli APRN POWER PRESS OPERATOR [address] [place] [address] Assigned Heart and Vascular Provider 05/28/23 Jelena David OD [address] [facility] [place] [address] MD Ophthalmology 06/15/23 Esha Grimm PA-C [address] [place] [address] Assigned PCP 07/16/23 Valery Veronica PA-C [address] [place] [address]185 Physician Retirement Benefits Specialist Dermatology 09/19/23 Rey Tay MD [address] [place] [address]6915 MD Gastroenterology 09/20/23 Rocky Zepeda DO [address] [place] [address]86255 Physician Gastroenterology 09/20/23 Philip Dumont MD [address] [place] [address] Physician Ophthalmology 09/22/23 Meredith Carrera PA-C [address] [place] [address] [phone] Assigned Gastroenterology Provider 11/01/23 Neil Kent MD [address] [address] Dermatology 11/02/23 [place] [address] [place] [address] Neurological Surgery 12/26/23 Audrey Waite PA-C 500 [place] [address] Physician Retirement Benefits Specialist Dermatology 02/28/24 Valery Veronica PA-C [address] [place] [address] Physician Retirement Benefits Specialist Dermatology 04/10/24 documented as of this encounter
--- OUTSIDE RECORDS SUMMARY | 2024-07-22 22:41 | XMS_ITS | Encounter Summary ---
Author Organization [place] Address [address] [place] [address] Care Team Providers Care Microgrinder Operator Name Role Phone Diana Desir [facility] Unavailable Rain Galaviz PA-C Unavailable Tavia Wyatt MD Unavailable Erica Farrell APRN SOIL SCIENCE TECHNICAL OFFICER Unavailable Rich Barrett MD Unavailable [phone] Neil Kent MD Unavailable Diana Desir [facility] Unavailable [phone] Livan Sharif MD Unavailable Catherine Cm MD Unavailable + Valery Veronica PA-C Unavailable Brea Quinn FISCAL AGENT SOIL SCIENCE TECHNICAL OFFICER Unavailable Brea Quinn FISCAL AGENT SOIL SCIENCE TECHNICAL OFFICER Unavailable Jose Francisco Johnson MD Unavailable Alfonso Renteria MD Unavailable [phone] Esha Grimm PA-C Primary Care Provider Radha Lomeli APRN SOIL SCIENCE TECHNICAL OFFICER Unavailable Jelena David OD Unavailable [phone] Esha Grimm PA-C Unavailable [phone] Valery Veronica PA-C Unavailable [phone] Rey Tay MD Unavailable Rocky Zepeda DO Unavailable Philip Dumont MD Unavailable [phone] Meredith Carrera PA-C Unavailable [phone] Neil Kent MD Unavailable Juan Pablo Emmanuel MD Unavailable [phone] Audrey Waite PA-C Unavailable [phone] Valery Veronica PA-C Unavailable Herminia Hatch MD Unavailable Encounter Details Date Type Department Care Team (Late st Contact Info) Description 03/19/2024 [facility] Medical Advice [facility] G[facility]ology [facility] [address] [place] [address] [place] Social History Tobacco [...] Date Recorded PHQ-2 Score 1 02/07/2024 [facility] of Occupat ional Health - [...] exercise at this level? 30 min 03/10/2023 [place] Depression Scale Answer Date Recorded [place] Depression Score 5 01/14/2021 Last EPDS Self [...] PM CDT Legal Sex Female 4:13 AM DATA OFFICER Gender Identity Female 03/02/2021 5:45 PM CDT Sexual Orientation Straight 02/28/2020 12 :51 AM CDT documented as of this encounter Plan of Treatment Upcoming Encounters Date Type Department Care Team (Late st Contact Info) Description 10/23/2024 9:30 AM CDT Office Visit [facility] Neurology [address], [address] [place] [address] [place] [address] [place], [place] 57[address] Johnny Penn MD 0545 [facility] [place] [id number] 11/28/2024 7:45 AM CDT Virtual Visit [facility]ology [facility] [address] 4th [place] [address] Meredith Carrera PA-C [address] [place] [address] documented as of this encounter Visit Diagnoses Not on filedocumented in this encounter Additional Health Concerns Infection Onset Date Last Indicated Resolved Time Rule Out COVID-19 04/09/2024 04/09/2024 04/10/2024 6:48 PM CDT Assessment Noted Time PHQ-9 Depression Total Score: 3 02/07/20 24 9:33 AM CDT documented as of this encounter Care Teams Microgrinder Operator Relationship Specialty Start Date End Date Esha Grimm PA-C [address] [place] [address] PCP - General Family Medicine 05/04/23 Diana Desir, [facility] [address] [place] [address] Pharmacist Pharmacist 04/17/21 Rain Galaviz PA-C [address] [place] [address] [address] [place] [address] Physician Slab Puller Dermatology 04/28/21 Tavia Wyatt MD [address] [place] [address] [address] [facility] [place] [address] Dermatology 07/14/21 Erica Farrell APRN SOIL SCIENCE TECHNICAL OFFICER 6405 [facility] [address] [place] 747745 Nurse Practitioner Cardiovascular Disease 09/09/21 Rich Barrett MD 516 [facility] 9A [place], [place] 5[address] Physician Ophthalmology 01/21/22 Neil Kent MD 500 [place], [place] 890155 Dermatology 02/24/22 Diana Desir, [facility] 3033 [place] [address] Assigned MTM Pharmacist 04/07/22 Livan Sharif MD [address] [facility] [address] [place] [address] Cardiovascular Disease 05/14/22 Catherine Cm MD [address] [facility] [place] 84[address]65 Cardiovascular Disease 07/21/22 Valery Veronica, PAUcheC 909 [place], [place] 6[address]475 Physician Slab Puller Dermatology 07/21/22 Brea Quinn APRN SOIL SCIENCE TECHNICAL OFFICER 500 [place] [address] Nurse Practitioner Dermatology 09/21/22 Brea Quinn APRN SOIL SCIENCE TECHNICAL OFFICER 6401 [facility] [place] [address] Assigned Surgical Provider 10/09/22 05/01/24 [place] [address] [place] [address] Assigned Musculoskeletal Provider 10/09/22 05/01/24 Alfonso Renteria MD [address] [facility] [address] 200 [place] [address] Assigned Neuroscience Provider 04/02/23 Armani Radha Stovall FISCAL AGENT SOIL SCIENCE TECHNICAL OFFICER [address] [place] [address]75 Assigned Heart and Vascular Provider 05/28/23 Jelena David OD [address] [facility] [address] [place] [id number] MD Ophthalmology 06/15/23 Esha Grimm PA-C [address] [place] [address] Assigned PCP 07/16/23 Valery Veronica PA-C [address] [place] [address] 861285 Physician Slab Puller Dermatology 09/19/23 Rey Tay MD [address] [place] [address] 692075 Gastroenterology 09/20/23 Rocky Zepeda DO [address] [place] [address] 959205 Physician Gastroenterology 09/20/23 Philip Dumont MD [address] [place] [address] 988085 Physician Ophthalmology 09/22/23 Meredith Carrera PA-C [address] [place] [address] Assigned Gastroenterology Provider 11/01/23 Neil Kent MD [address] [address] Dermatology 11/02/23 [place] [address] [address] Neurological Surgery 12/26/23 Audrey Waite PA-C [address] [place] [address] Physician Slab Puller Dermatology 02/28/24 Valery Veronica PA-C 134146 [address] [place] [address] Physician Slab Puller Dermatology 04/10/24 Herminia Hatch MD [facility]5 [place], [place] 3004[address] Assigned Rheumatology Provider 07/02/24 documented as of this encounter
--- OUTSIDE RECORDS SUMMARY | 2024-07-22 22:41 | XMS_ITS | Encounter Summary ---
Author Organization [place] Address [address] [place] [address] Care Team Providers Care Peer Financial Counselor Name Role Phone Diana Desir [facility] Unavailable [phone] Rain Galaviz PAUcheC Unavailable Tavia Wyatt MD Unavailable Erica Farrell COMPANY MINER BLASTING APPLICATIONS SUPPORT ANALYST Unavailable Rich Barrett MD Unavailable [phone] Neil Kent MD Unavailable Kendrick Desirelle Stanislav [facility] Unavailable Livan Sharif MD Unavailable Catherine Cm MD Unavailable + Valery Veronica-C Unavailable Brea Quinn COMPANY MINER BLASTING APPLICATIONS SUPPORT ANALYST Unavailable Alfonso Renteria MD Unavailable [phone] Esha GrimmC Primary Care Provider Radha Lomeli COMPANY MINER BLASTING APPLICATIONS SUPPORT ANALYST Unavailable Jelena David OD Unavailable [place], Esha M PA-C Unavailable [phone] Valery Veronica PA-C Unavailable Rey Tay MD Unavailable Rocky Zepeda DO Unavailable Philip Dumont MD Unavailable [phone] Meredith CarreraC Unavailable [phone] Neil Kent MD Unavailable Juan Pablo Luong MD Unavailable [phone] Audrey Waite PA-C Unavailable [phone] Valery Veronica PA-C Unavailable [phone] Reason for Visit * Reason Onset Date Comments Previsit 06/21/2024 Encounter Details Date Type Department Care Team (Late st Contact Info) Description 06/21/2024 PRE VISIT [facility] Neurology [address], [address] [place] [address] Johnny Penn MD 1377 [place] [address] Previsit Social History Tobacco Use [...] Date Recorded PHQ-2 Score 1 02/07/2024 [facility] of Occupat ional [...] exercise at this level? 20 min 05/07/2024 Energy Depression Scale Answer Date Recorded [place] Depression Score 5 01/14/2021 Last EPDS Self [...] CDT Legal Sex Female 4:13 AM CLINICAL SUPPORT NURSE Gender Identity Female 03/02/2021 5:45 PM [...] SPINE) N/A XR (HEAD, NECK, SPINE) N/A ICAL SUPPORT NURSE documented in this encounter Plan of Treatment Upcoming Encounters Date Type Department Care Team (Late st Contact Info) Description 10/23/2024 9:30 AM CDT Office Visit [facility] Neurology [facility] [address] [facility], [address] [place] [phone] [place] [address] [place] [id number] Johnny Penn MD 3202 [place], [place] 5[address] 11/28/2024 7:45 AM CDT Virtual Visit [facility] Gastroenterology Clinic [address] 4th [place] [address] Meredith Carrera PA-C [address] [place] [address] documented as of this encounter Visit Diagnoses Not on filedocumented in this encounter Additional Health Concerns Assessment Noted Time PHQ-9 Depression Total Score: 3 02/07/20 24 9:33 AM CDT documented as of this encounter Care Teams Peer Financial Counselor Relationship Specialty Start Date End Date Esha Grimm PA-C [address] [place] [phone] PCP - General Family Medicine 05/04/23 Diana Desir, [facility] [address] [place] [address] Pharmacist Pharmacist 04/17/21 Rain Galaviz PA-C [address] [place] [address] [address] [place] [id number] Physician Weigher Production Dermatology 04/28/21 Tavia Wyatt MD [address] [place] [address] [address] [facility] [place] [place] [phone] Dermatology 07/14/21 Erica Farrell APRN APPLICATIONS SUPPORT ANALYST [address] [place], [place] [address] Nurse Practitioner Cardiovascular Disease 09/09/21 Rich Barrett MD [address] [place] [address] Physician Ophthalmology 01/21/22 Neil Kent MD [address] [place] [address] [id number] Dermatology 02/24/22 Diana Desir, [facility] 3033 [place], [place] 246886 Assigned MTM Pharmacist 04/07/22 Livan Sharif MD [address] [facility] [place] [address] Cardiovascular Disease 05/14/22 Catherine Cm MD [address] [facility] [place] [address] Cardiovascular Disease 07/21/22 Valery Veronica, PAUcheC [address] [place] [address]855 Physician Weigher Production Dermatology 07/21/22 Brea Quinn, COMPANY MINER BLASTING APPLICATIONS SUPPORT ANALYST 500 [place] [address] Nurse Practitioner Dermatology 09/21/22 Alfonso Renteria MD 5775 [facility] [address] 200 [place], [place] [address]706 Assigned Neuroscience Provider 04/02/23 Radha Lomeli APRN APPLICATIONS SUPPORT ANALYST 6405 [facility] [address] [place], [place] 6[address]65 Assigned Heart and Vascular Provider 05/28/23 Jelena David OD [address] [facility] [address] [place] [id number] MD Ophthalmology 06/15/23 Esha Grimm PA-C [address] [place] [address] Assigned PCP 07/16/23 Valery Veronica PA-C 909 [place], [place] 321295 Physician Weigher Production Dermatology 09/19/23 Rey Tay MD 909 [place] [address] Gastroenterology 09/20/23 Rocky Zepeda DO 500 [place] [address] Physician Gastroenterology 09/20/23 Philip Dumont MD 516 [place] [address] Physician Ophthalmology 09/22/23 Meredith Carrera PA-C [address] [place] [address] Assigned Gastroenterology Provider 11/01/23 Neil Kent MD [address] [address] Dermatology 11/02/23 [place] [address] [address] Neurological Surgery 12/26/23 Audrey Waite PA-C [address] [place] [address] Physician Weigher Production Dermatology 02/28/24 Valery Veronica PA-C 297528 [address], [place] [address] Physician Weigher Production Dermatology 04/10/24 documented as of this encounter
--- OUTSIDE RECORDS SUMMARY | 2024-07-22 22:41 | XMS_ITS | Encounter Summary ---
Author Organization [place] Address [address] [place] [address] Care Team Providers Care Plate Stacker Hand Name Role Phone Diana Desir [facility] Unavailable [phone] Rain Galaviz PAUcheC Unavailable Tavia Wyatt MD Unavailable Erica Farrell SECTION CHIEF RELIEF SALESPERSON Unavailable Rich Barrett MD Unavailable [phone] Neil Kent MD Unavailable Kendrick Desirelle Stanislav [facility] Unavailable Livan Sharif MD Unavailable Catherine Cm MD Unavailable + Valery Veronica-C Unavailable Brea Quinn SECTION CHIEF RELIEF SALESPERSON Unavailable Alfonso Renteria MD Unavailable [phone] Esha GrimmC Primary Care Provider Radha Lomeli SECTION CHIEF RELIEF SALESPERSON Unavailable Jelena David OD Unavailable Esha Grimm PA-C Unavailable [phone] Valery VeronicaC Unavailable [phone] Rey Tay MD Unavailable Rocky Zepeda DO Unavailable Philip Dumont MD Unavailable [phone] Meredith CarreraC Unavailable [phone] Neil Kent MD Unavailable Juan Pablo Emmanuel MD Unavailable [phone] Audrey WaiteC Unavailable [phone] Valery VeronicaC Unavailable [phone] Herminia Hatch MD Unavailable Encounter Details Date Type Department Care Team (Late st Contact Info) Description 06/06/2024 Orders Only [facility] [address] [place] [address] Outside, Provider Social History Tobacco Use Types [...] [facility] of Occupat ional [facility] - Occupational Stress Questionnaire Answer [...] exercise at this level? 20 min 05/07/2024 [place] Depression Scale Answer Date Recorded [place] Depression Score 5 01/14/2021 Last EPDS Self [...] in an overnight usp, or couch-surfing.) Yes 05/07/2024 Are you worried [...] PM CDT Legal Sex Female 4:13 AM PROJECT MGR Gender Identity Female 03/02/2021 5:45 PM CDT Sexual Orientation Straight 02/28/2020 12 :51 AM CDT documented as of this encounter Plan of Treatment Upcoming Encounters Date Type Department Care Team (Late st Contact Info) Description 10/23/2024 9:30 AM CDT Office Visit [facility] Neurology [address] [place] [address] [place] [address] [place] [address] 611887 Johnny Penn MD 1969 [place], [place] 8[address]25 11/28/2024 7:45 AM CDT Virtual Visit [facility] Gastroenterology Clinic [address] [place] [address] Meredith Carrera PA-C [address] [place] [address] documented as of this encounter Procedures Procedure Name Priority Date/Time Associated Diagnosis Comments HLA RESULT REPORT 06/06/2024 2:04 PM PROJECT MGR documented in this encounter Results * HLA Result Report (06/06/2024 2:04 PM PROJECT MGR) us Provider Outside LAB - IMMUNOLOGY ORDERABLES Fin al Result documented in this encounter Visit Diagnoses Not on filedocumented in this encounter Additional Health Concerns Assessment Noted Time PHQ-9 Depression Total Score: 3 02/07/20 24 9:33 AM CDT documented as of this encounter Care Teams Plate Stacker Hand Relationship Specialty Start Date End Date Esha Grimm PA-C [address] [place] [address] PCP - General Family Medicine 05/04/23 Diana Desir, [facility] [address] [place], [place] 78[address] Pharmacist Pharmacist 04/17/21 Rain Galaviz PA-C [address] [place] [address] [address] [place] [address] Physician Roll Over Press Operator Dermatology 04/28/21 Tavia Wyatt MD [address] [place] [address] [address] [place], [place] [phone] Dermatology 07/14/21 Erica Farrell APRN RELIEF SALESPERSON 6405 [facility] [address] [place], [place] 260[address] Nurse Practitioner Cardiovascular Disease 09/09/21 Rich Barrett MD 516 [facility] 9A [place] [address] Physician Ophthalmology 01/21/22 Neil Kent MD 500 [place], [place] 759245 Dermatology 02/24/22 Diana Desir, [facility] 3033 [place], [place] 226786 Assigned MTM Pharmacist 04/07/22 Livan Sharif MD [address] [place] 944585 Cardiovascular Disease 05/14/22 Catherine Cm MD [address] [place] [address]325 Cardiovascular Disease 07/21/22 Valery Veronica, PA-C 909 [place], [place] 420465 Physician Roll Over Press Operator Dermatology 07/21/22 Brea Quinn APRN RELIEF SALESPERSON 500 [place], [place] 0[address]95 Nurse Practitioner Dermatology 09/21/22 Alfonso Renteria MD [address] [facility] 200 [place], [place] 9915[address]16 Assigned Neuroscience Provider 04/02/23 Radha Lomeli APRN RELIEF SALESPERSON [address] [place] 675[address] Assigned Heart and Vascular Provider 05/28/23 Jelena David OD [address] [facility] [place] [address] MD Ophthalmology 06/15/23 Esha Grimm PA-C [address] [place] [address] Assigned PCP 07/16/23 Valery Veronica PA-C [address] [place] [address] 844315 Physician Roll Over Press Operator Dermatology 09/19/23 Rey Tay MD [address] [place] [address] MD Gastroenterology 09/20/23 Rocky Zepeda DO [address] [place] [address] Physician Gastroenterology 09/20/23 Philip Dumont MD [address] [place] [address] 175935 Physician Ophthalmology 09/22/23 Meredith Carrera PA-C [address] [place] [address] 027595 Assigned Gastroenterology Provider 11/01/23 Neil Kent MD [address] 150[address] Dermatology 11/02/23 [place] [address] [place] [address] Neurological Surgery 12/26/23 Audrey Waite PA-C 500 [place] [address] Physician Roll Over Press Operator Dermatology 02/28/24 Valery Veronica PA-C 665649 99 [place] [address] Physician Roll Over Press Operator Dermatology 04/10/24 Herminia Hatch MD [address] [place] [address] [id number] Assigned Rheumatology Provider 07/02/24 documented as of this encounter
--- OUTSIDE RECORDS SUMMARY | 2024-07-22 22:41 | XMS_ITS | Encounter Summary ---
Author Organization [place] Address [address] [place] [address] Care Team Providers Care Calibration Technician Name Role Phone Diana Desir [facility] Unavailable Rain Galaviz PAUcheC Unavailable Tavia Wyatt MD Unavailable Erica Farrell COMPUTER RECYCLING WORKER ENERGY EFFICIENCY FINANCE MANAGER Unavailable Rich Barrett MD Unavailable [phone] Neil Kent MD Unavailable Kendrick Desirelle Stanislav [facility] Unavailable Livan Sharif MD Unavailable Catherine Cm MD Unavailable + Valery Veronica-C Unavailable Brea Quinn COMPUTER RECYCLING WORKER ENERGY EFFICIENCY FINANCE MANAGER Unavailable Alfonso Renteria MD Unavailable [phone] Esha GrimmC Primary Care Provider Radha Lomeli COMPUTER RECYCLING WORKER ENERGY EFFICIENCY FINANCE MANAGER Unavailable Jelena David OD Unavailable [phone] Esha Grimm PA-C Unavailable [phone] Valery Veronica PA-C Unavailable [phone] Rey Tay MD Unavailable Rocky Zepeda DO Unavailable Philip Dumont MD Unavailable [phone] Meredith CarreraC Unavailable [phone] Neil Kent MD Unavailable Juan Pablo Emmanuel MD Unavailable [phone] Audrey Waite PA-C Unavailable [phone] Valery Veronica PA-C Unavailable [phone] Encounter Details Date Type Department Care Team [...] Answer Date Recorded PHQ-2 Score 1 02/07/2024 [facility] Questionnaire [...] exercise at this level? 20 min 05/07/2024 [place] Depression Scale Answer Date Recorded [place] Depression Score 5 01/14/2021 Last EPDS Self [...] PM CDT Legal Sex Female 4:13 AM SCHEDULE MANAGER Gender Identity Female 03/02/2021 5:45 PM CDT Sexual Orientation Straight 02/28/2020 12 :51 AM CDT documented as of this encounter Plan of Treatment Upcoming Encounters Date Type Department Care Team (Late st Contact Info) Description 10/23/2024 9:30 AM CDT Office Visit [facility] Neurology [address] [place] [address] [place] [address] [place] [address] Johnny Penn MD 9088 [place], [place] 361205 11/28/2024 7:45 AM CDT Virtual Visit [facility] Gastroenterology Clinic [address] 4th [place] [address] Meredith Carrera PA-C [address] [place] [address] 838555 documented as of this encounter Visit Diagnoses Not on filedocumented in this encounter Additional Health Concerns Assessment Noted Time PHQ-9 Depression Total Score: 3 02/07/20 24 9:33 AM CDT documented as of this encounter Care Teams Calibration Technician Relationship Specialty Start Date End Date Esha Grimm PA-C [address] [place] [address] PCP - General Family Medicine 05/04/23 Diana Desir, [facility] [address] [place] [address] Pharmacist Pharmacist 04/17/21 Rain Galaviz PA-C [address] [place] [address] [address] [place] [address] Physician Communication Coordinator Dermatology 04/28/21 Tavia Wyatt MD [address] [place] [address] [address] [place] [address] Dermatology 07/14/21 Erica aFrrell APRN ENERGY EFFICIENCY FINANCE MANAGER 6405 [facility] [address] [place], [place] 8[address] Nurse Practitioner Cardiovascular Disease 09/09/21 Rich Barrett MD 516 [facility] 9A [place], [place] 506685 Physician Ophthalmology 01/21/22 Neil Kent MD 500 [place], [place] 847325 Dermatology 02/24/22 Diana Desir, [facility] [address] [place] [address] Assigned MTM Pharmacist 04/07/22 Livan Sharif MD [address], [facility] [address] [place] 151205 Cardiovascular Disease 05/14/22 Catherine Cm MD [address] [place] 475965 Cardiovascular Disease 07/21/22 Valery Veronica, PA-C 909 [place], [place] 931455 Physician Communication Coordinator Dermatology 07/21/22 Brea Quinn APRN ENERGY EFFICIENCY FINANCE MANAGER 500 [place], [place] [address] Nurse Practitioner Dermatology 09/21/22 Alfonso Renteria MD 5775 [facility] 200 [place], [place] 534616 Assigned Neuroscience Provider 04/02/23 Radha Lomeli APRN ENERGY EFFICIENCY FINANCE MANAGER [address] [place] 841355 Assigned Heart and Vascular Provider 05/28/23 Jelena David OD [address] [facility] [address] Ophthalmology 06/15/23 Esha Grimm PA-C [address] [place] [address] Assigned PCP 07/16/23 Valery Veronica PA-C 9 [place] [address] Physician Communication Coordinator Dermatology 09/19/23 Rey Tay MD 9 [place] [address] MD Gastroenterology 09/20/23 Rocky Zepeda DO 500 [place] [address] Physician Gastroenterology 09/20/23 Philip Dumont MD [address] [place] [address] Physician Ophthalmology 09/22/23 Meredith Carrera PA-C [address] [place] [address] Assigned Gastroenterology Provider 11/01/23 Neil Kent MD [address] [address] Dermatology 11/02/23 [place] [address] [address] Neurological Surgery 12/26/23 Audrey Waite PA-C 500 [place] [address] Physician Communication Coordinator Dermatology 02/28/24 Valery eVronica PA-C 262194 [address] [place] [address] Physician Communication Coordinator Dermatology 04/10/24 documented as of this encounter
--- OUTSIDE RECORDS SUMMARY | 2024-07-22 22:41 | XMS_ITS | Encounter Summary ---
Author Organization [place] Address [address] [place] [address] Care Team Providers Care Gold Cutter Name Role Phone Diana Desir [facility] Unavailable Rain Galaviz PA-C Unavailable [phone] Tavia Wyatt MD Unavailable Erica Farrell APRN AVIATION ORDNANCE OFFICER Unavailable Rich Barrett MD Unavailable [phone] Neil Kent MD Unavailable Diana Desir [facility] Unavailable [phone] Livan Sharif MD Unavailable Catherine Cm MD Unavailable + Valery Veronica PA-C Unavailable Brea Quinn PAPER COATING MACHINE OPERATOR AVIATION ORDNANCE OFFICER Unavailable Brea Quinn PAPER COATING MACHINE OPERATOR AVIATION ORDNANCE OFFICER Unavailable Jose Francisco Johnson MD Unavailable Alfonso Renteria MD Unavailable [phone] Esha Grimm PA-C Primary Care Provider Lomeli, Radha E PAPER COATING MACHINE OPERATOR AVIATION ORDNANCE OFFICER Unavailable [phone] Jelena David OD Unavailable [phone] Esha Grimm PA-C Unavailable [phone] Valery Veronica PA-C Unavailable Rey Tay MD Unavailable Rocky Zepeda DO Unavailable Philip Dumont MD Unavailable Meredith Carrera PA-C Unavailable [phone] Neil Kent MD Unavailable Juan Pablo Emmanuel MD Unavailable [phone] Audrey Waite PA-C Unavailable [phone] Valery Veronica PA-C Unavailable [phone] Herminia Hatch MD Unavailable Encounter Details Date Type Department Care Team (Late st Contact Info) Description 04/24/2024 [facility] Medical Advice [facility] Heart [facility] [address] [facility] [address] [place] [address] Radha Lomeli, PAPER COATING MACHINE OPERATOR AVIATION ORDNANCE OFFICER [address] [place], [place] [address] Social History Tobacco Use Types Packs/Day Years [...] 03/28/2024 How often do you attend [facility] or zoroastrianism services? 1 to 4 [...] exercise at this level? 30 min 03/28/2024 [place] Depression Scale Answer Date Recorded [place] Depression Score 5 01/14/2021 Last EPDS Self [...] in an overnight fdc, or couch-surfing.) Yes 03/28/2024 Are you worried [...] PM CDT Legal Sex Female 4:13 AM BASKET PERSON Gender Identity Female 03/02/2021 5:45 PM CDT Sexual Orientation Straight 02/28/2020 12 :51 AM CDT documented as of this encounter Miscellaneous Notes * Telephone Encounter - Marija Bailey RN - 05/01/2024 9:38 AM CDT December's result note from patient's 14-day event monitor: Preliminary Heart monitor results reviewed Showed normal sinus rhythm No concerning arrhythmias GERRI Pelayo Updated patient via Find[employer]fee. documented in this encounter Plan of Treatment Upcoming Encounters Date Type Department Care Team (Late st Contact Info) Description 10/23/2024 9:30 AM CDT Office Visit [facility] - [address], [address] [place] [address] [place] [address] [place], [place] [address] Johnny Penn MD [address] [place] [address] 11/28/2024 7:45 AM CDT Virtual Visit [facility] [address] 4th [place] [phone] Meredith Carrera PA-C [address] [place] [address]355 documented as of this encounter Visit Diagnoses Not on filedocumented in this encounter Additional Health Concerns Assessment Noted Time PHQ-9 Depression Total Score: 3 02/07/20 24 9:33 AM CDT documented as of this encounter Care Teams Gold Cutter Relationship Specialty Start Date End Date Esha Grimm PA-C [address] [place] [phone] PCP - General Family Medicine 05/04/23 Diana Desir, [facility] [address] [place] [address] Pharmacist Pharmacist 04/17/21 Rain Galaviz PA-C [address] [place] [address] [address] [place] [id number] Physician Bead Forming Machine Operator Dermatology 04/28/21 Tavia Wyatt MD [address] [place] [address] [address] [place] [id number] Dermatology 07/14/21 Erica Farrell APRN AVIATION ORDNANCE OFFICER [address] [place], [place] [address] Nurse Practitioner Cardiovascular Disease 09/09/21 Rich Barrett MD [address] [facility] [address] [place] [address] Physician Ophthalmology 01/21/22 Neil Kent MD 500 [place], [place] 725535 Dermatology 02/24/22 Diana Desir, [facility] 3033 [place], [place] 581756 Assigned [place] Pharmacist 04/07/22 Livan Sharif MD [address] [place], [place] [address] Cardiovascular Disease 05/14/22 Catherine Cm MD [address] [place], [place] [address] Cardiovascular Disease 07/21/22 Valery Veronica, PA-C 9[address] [place], [place] 959[address] Physician Bead Forming Machine Operator Dermatology 07/21/22 Brea Quinn APRN AVIATION ORDNANCE OFFICER 500 [place], [place] 6[address]65 Nurse Practitioner Dermatology 09/21/22 Brea Quinn APRN AVIATION ORDNANCE OFFICER [address] [facility] [place] [address] Assigned Surgical Provider 10/09/22 05/01/24 [place] [address] [place] [address] Assigned Musculoskeletal Provider 10/09/22 05/01/24 Alfonso Renteria MD [address] [facility] 200 [place], [place] 128676 Assigned Neuroscience Provider 04/02/23 Radha Lomeli APRN AVIATION ORDNANCE OFFICER 6405 [facility] [address] [place] [address] Assigned Heart and Vascular Provider 05/28/23 Jelena David OD [address] [facility] [address] Ophthalmology 06/15/23 Esha Grimm PA-C [address] [place] [address] Assigned PCP 07/16/23 Valery Veronica PA-C [address] [place] [address] 685655 Physician Bead Forming Machine Operator Dermatology 09/19/23 Rey Tay MD [address] [place] [address] 019245 Gastroenterology 09/20/23 Rocky Zepeda DO [address] [place] [address] Physician Gastroenterology 09/20/23 Philip Dumont MD [address] [place] [address] Physician Ophthalmology 09/22/23 Meredith Carrera PA-C [address] [place] [address] Assigned Gastroenterology Provider 11/01/23 Neil Kent MD [address] [place] [address] 453490 MD Dermatology 11/02/23 [place] [address] [address] Neurological Surgery 12/26/23 Audrey Waite PA-C [address] [place] [address] Physician Bead Forming Machine Operator Dermatology 02/28/24 Valery Veronica PA-C [address]193 [place] [address] Physician Bead Forming Machine Operator Dermatology 04/10/24 Herminia Hatch MD [facility]5 [place], [place] [phone] Assigned Rheumatology Provider 07/02/24 documented as of this encounter
--- OUTSIDE RECORDS SUMMARY | 2024-07-22 22:41 | XMS_ITS | Encounter Summary ---
Author Organization [facility] Address [address] [place] [address] Care Team Providers Care Lip Cutter And Scorer Name Role Phone Diana Desir [facility] Unavailable [phone] Rain Galaviz PAUcheC Unavailable Tavia Wyatt MD Unavailable Erica Farrell SUPERVISOR ALUM PLANT BLOOD DONOR RECRUITER Unavailable Rich Barrett MD Unavailable [phone] Neil Kent MD Unavailable Kendrick Desirelle Stanislav [facility] Unavailable Livan Sharif MD Unavailable Catherine Cm MD Unavailable + Valery Veronica-C Unavailable Brea Quinn SUPERVISOR ALUM PLANT BLOOD DONOR RECRUITER Unavailable [phone] Alfonso Renteria MD Unavailable [phone] Esha GrimmC Primary Care Provider Radha Lomeli SUPERVISOR ALUM PLANT BLOOD DONOR RECRUITER Unavailable Jelena David OD Unavailable Alfa, Esha M PA-C Unavailable [phone] Valery Veronica PA-C Unavailable [phone] Rey Tay MD Unavailable Rocky Zepeda DO Unavailable Philip Dumont MD Unavailable [phone] Meredith Carrera PA-C Unavailable [phone] Neil Kent MD Unavailable Juan Pablo Emmanuel MD Unavailable [phone] Audrey Waite PA-C Unavailable [phone] Valery Veronica PA-C Unavailable [phone] Reason for Visit * Reason Onset Date Comments Call Back 06/20/2024 Encounter Details Date Type Department Care Team (Late st Contact Info) Description 06/20/2024 Telephone [facility] [address] [facility] [address] [place] [address] Radha Lomeli APRN BLOOD DONOR RECRUITER [address] [place] [address] Call Back Social History Tobacco [...] Answer Date Recorded PHQ-2 Score 1 02/07/2024 [facility] [...] exercise at this level? 20 min 05/07/2024 [place] Depression Scale Answer Date Recorded [place] Depression Score 5 01/14/2021 Last EPDS Self [...] PM CDT Legal Sex Female 4:13 AM MAINTENANCE SCHEDULER Gender Identity Female 03/02/2021 5:45 PM [...] symptoms and ease into exercising. Will send Bioenvisionhart message as well. Carley ZABALA [facility] TENANCE SCHEDULER * Telephone Encounter - Solo Lee - 06/20/2024 12:18 PM CST [facility] Phone Message May a detailed message be left on voicemail: yes Reason for Call: Other: Per call from patient, she has a history of SVT and on Metoprolol and wondering if she is restricted from exercising. Patient requesting a call back to further discuss it. Action Taken: Other: Cardio Travel Screening: Not Applicable Date of Service: TENANCE SCHEDULER documented in this encounter Plan of Treatment Upcoming Encounters Date Type Department Care Team (Late st Contact Info) Description 10/23/2024 9:30 AM CDT Office Visit [facility] Neurology [facility] [address] [facility], [address] [place] [phone] [place] [address] [address] [place], [place] [phone] Johnny Penn MD 5591 [place], [place] [address] 11/28/2024 7:45 AM CDT Virtual Visit [facility] Gastroenterology Clinic [address]th [place] [phone] Meredith Carrera PA-C [address] [place] [address] documented as of this encounter Visit Diagnoses Not on filedocumented in this encounter Additional Health Concerns Assessment Noted Time PHQ-9 Depression Total Score: 3 02/07/20 24 9:33 AM CDT documented as of this encounter Care Teams Lip Cutter And Scorer Relationship Specialty Start Date End Date Esha Grimm PA-C [address] [place] [address] PCP - General Family Medicine 05/04/23 Diana Desir [facility] 3033 [place] [address] Pharmacist Pharmacist 04/17/21 Rain Galaviz PA-C [address] [place] [address] [address] [place] [address] Physician Global Position System Technician Dermatology 04/28/21 Tavia Wyatt MD [address] [place] [address] [address] [place] [address] Dermatology 07/14/21 Erica Farrell APRN BLOOD DONOR RECRUITER [address] [place], [place] [address] Nurse Practitioner Cardiovascular Disease 09/09/21 Rich Barrett MD [address] [place] [address] 481525 Physician Ophthalmology 01/21/22 Neil Kent MD 500 [place], [place] 743065 Dermatology 02/24/22 Diana Desir, [facility] [address] [place] [address] Assigned [place] Pharmacist 04/07/22 Livan Sharif MD [address], [facility] [address] [place], [place] 3[address] Cardiovascular Disease 05/14/22 Catherine Cm MD [address] [facility] [address] [place], [place] [address]135 Cardiovascular Disease 07/21/22 Valery Veronica, PA-C [address] [place] [address] Physician Global Position System Technician Dermatology 07/21/22 Brea Quinn APRN BLOOD DONOR RECRUITER 500 [place] [address] Nurse Practitioner Dermatology 09/21/22 Alfonso Renteria MD [address] [facility] [address] [place], [place] 177036 Assigned Neuroscience Provider 04/02/23 Radha Lomeli APRN BLOOD DONOR RECRUITER [address] [facility] [address] [place], [place] [address]385 Assigned Heart and Vascular Provider 05/28/23 Jelena David OD [facility] [place] [address] Ophthalmology 06/15/23 Esha Grimm PA-C [address] [place] [address] Assigned PCP 07/16/23 Valery Veronica PA-C [address] [place] [address] Physician Global Position System Technician Dermatology 09/19/23 Rey Tay MD 9 [place], [place] 0[address] Gastroenterology 09/20/23 Rocky Zepeda DO 500 [place], [place] 6039[address] Physician Gastroenterology 09/20/23 Philip Dumont MD 516 [place], [place] 95[address] Physician Ophthalmology 09/22/23 Meredith Carrera PA-C [address] [place] [address] 049325 Assigned Gastroenterology Provider 11/01/23 Neil Kent MD [address] 375560 MD Dermatology 11/02/23 [place] [address] [place] [place] [address] 089597 Neurological Surgery 12/26/23 Audrey Waite PA-C 500 [place], [place] 244695 Physician Global Position System Technician Dermatology 02/28/24 Valery Veronica PA-C [address] [place] [address] Physician Global Position System Technician Dermatology 04/10/24 documented as of this encounter
--- OUTSIDE RECORDS SUMMARY | 2024-07-22 22:41 | XMS_ITS | Encounter Summary ---
Author Organization [facility] Address [address] [place] [address] Care Team Providers Care Hotel Supplies Salesperson Name Role Phone Diana Desir [facility] Unavailable Rain Galaviz PAUcheC Unavailable [phone] Tavia Wyatt MD Unavailable Erica Farrell LAND DEVELOPMENT PROJECT MANAGER OBSTETRICS/GYNECOLOGY NURSE Unavailable Rich Barrett MD Unavailable [phone] Neil Kent MD Unavailable Kendrick Desirelle Stanislav [facility] Unavailable Livan Sharif MD Unavailable Catherine Cm MD Unavailable + Valery Veronica-C Unavailable [phone] Brea Quinn LAND DEVELOPMENT PROJECT MANAGER OBSTETRICS/GYNECOLOGY NURSE Unavailable Alfonso Renteria MD Unavailable [phone] Esha GrimmC Primary Care Provider Radha Lomeli LAND DEVELOPMENT PROJECT MANAGER OBSTETRICS/GYNECOLOGY NURSE Unavailable Jelena David OD Unavailable Esha Grimm PA-C Unavailable [phone] Valery Veronica PA-C Unavailable [phone] Rey Tay MD Unavailable Rocky Zepeda DO Unavailable Philip Dumont MD Unavailable [phone] Meredith CarreraC Unavailable [phone] Neil Kent MD Unavailable Juan Pablo Emmanuel MD Unavailable [phone] Audrey Waite PA-C Unavailable [phone] Valery Veronica PA-C Unavailable [phone] Encounter Details Date Type Department Care Team (Late st Contact Info) Description 06/21/2024 4:30 PM PRODUCT SUPPORT ENGINEER Lab [facility] [address] [place] [address] Vaginal discharge; Screen for STD [...] exercise at this level? 20 min 05/07/2024 [place] Depression Scale Answer Date Recorded [place] Depression Score 5 01/14/2021 Last EPDS Self [...] PM CDT Legal Sex Female 4:13 AM PRODUCT SUPPORT ENGINEER Gender Identity Female 03/02/2021 5:45 PM CDT Sexual Orientation Straight 02/28/2020 12 :51 AM CDT documented as of this encounter Plan of Treatment Upcoming Encounters Date Type Department Care Team (Late st Contact Info) Description 10/23/2024 9:30 AM CDT Office Visit [facility] Neurology [address], [address] [place] [address] [place] [address] [place] [address] 835097 Johnny Penn MD 3731 [place], [place] 307205 11/28/2024 7:45 AM CDT Virtual Visit [facility] Gastroenterology Clinic [address] 4th [place] [address] Meredith Carrera PA-C [address] [place] [address] documented as of this encounter Procedures Procedure Name Priority Date/Time Associated Diagnosis Comments HIV ANTIGEN ANTIBODY COMBO Routine 06/21/2024 4:22 PM PRODUCT SUPPORT ENGINEER Screen for STD (sexually transmitted disease) TREPONEMA ABS W REFLEX TO RPR AND TITER Routine 06/21/2024 4:22 PM PRODUCT SUPPORT ENGINEER Screen for STD (sexually transmitted disease) WET PREPARATION Routine 06/21/2024 4:22 PM PRODUCT SUPPORT ENGINEER Vaginal discharge NEISSERIA GONORRHOEAE PCR Routine 06/21/2024 4:22 PM PRODUCT SUPPORT ENGINEER Screen for STD (sexually transmitted disease) CHLAMYDIA TRACHOMATIS PCR Routine 06/21/2024 4:22 PM PRODUCT SUPPORT ENGINEER Screen for STD (sexually transmitted disease) documented in this encounter Results * Treponema Abs w Reflex to RPR and Titer (06/21/2024 4:22 PM PRODUCT SUPPORT ENGINEER) Treponema Antibody Total Nonreactive Nonreactive 06/22/2024 6:47 PM PRODUCT SUPPORT ENGINEER [facility]/PROT/EN DO Blood BLOOD SPECIMEN / Unknown Venipuncture / Unknown 06/21/2024 4:22 PM PRODUCT SUPPORT ENGINEER 06/21/2024 4:30 PM PRODUCT SUPPORT ENGINEER us Esha Grimm PA-C LAB - BLOOD ORDERABLES Final R esult [facility] CORE/PROT/ENDO [facility] Core/Prot/Endo [address] [facility] [address] [facility], Room [address] [place] [address] * HIV Antigen Antibody Combo (06/21/2024 4:22 PM PRODUCT SUPPORT ENGINEER) HIV Antigen Antibody Combo Nonreactive Nonreactive 06/22/2024 6:16 PM PRODUCT SUPPORT ENGINEER [facility] Comment:Negative HIV-1 p24 a ntigen [...] Unknown Venipuncture / Unknown 06/21/2024 4:22 PM PRODUCT SUPPORT ENGINEER 06/21/2024 4:30 PM PRODUCT SUPPORT ENGINEER Esha Grimm PA-C LAB - BLOOD ORDERABLES Final R esult Performing Organization Address [facility] Co de Phone Number [facility] [place] Core Lab 500 [facility], [address] [place] [address] * Neisseria gonorrhoeae PCR (06/21/2024 4:22 PM PRODUCT SUPPORT ENGINEER) Neisseria gonorrhoeae Negative Negative 06/22/2024 5:48 PM PRODUCT SUPPORT ENGINEER [facility] Comment:Negative for N. gono rrhoeae rRNA by fryline attendant mediated amplification. A negative result by fryline attendant mediated amplification does not preclude the presence of C. trachomatis infection because results are dependent on proper and adequate collection, absence of inhibitors and sufficient rRNA to be detected. Swab VAGINAL STRUCTURE / Unknown Non-blood Collection / Unknown 06/21/2024 4:22 PM PRODUCT SUPPORT ENGINEER 06/21/2024 4:36 PM PRODUCT SUPPORT ENGINEER Esha Grimm PA-C LAB - MICRO GENERAL ORDERABLES Final Result Performing Organization Address [facility] de Phone Number [facility] Inf. Diseases Diag. Lab 500 [facility], [address] [place] [address] * Chlamydia trachomatis PCR (06/21/2024 4:22 PM PRODUCT SUPPORT ENGINEER) Chlamydia trachomatis Negative Negative 06/22/2024 5:48 PM PRODUCT SUPPORT ENGINEER [facility] Comment:A negative result by fryline attendant mediated amplification does not preclude the presence of C. trachomatis infection because results are dependent on proper and adequate collection, absence of inhibitors and sufficient rRNA to be detected. Swab VAGINAL STRUCTURE / Unknown Non-blood Collection / Unknown 06/21/2024 4:22 PM PRODUCT SUPPORT ENGINEER 06/21/2024 4:36 PM PRODUCT SUPPORT ENGINEER us sEha Grimm PA-C LAB - MICRO GENERAL ORDERABLES Final Result [facility] Inf. Diseases Diag. Lab 500 [facility], [address] [place] [address], [facility] * (ABNORMAL) Wet preparation (06/21/2024 4:22 PM PRODUCT SUPPORT ENGINEER) Trichomonas Absent Absent REINA 06/21/2024 4:42 PM PRODUCT SUPPORT ENGINEER [facility] Yeast Present(A) Absent REINA 06/21/2024 4:42 PM PRODUCT SUPPORT ENGINEER [facility] Clue Cells Absent Absent REINA 06/21/2024 4:42 PM PRODUCT SUPPORT ENGINEER [facility] WBCs/high power field 3+(A) None REINA 06/21/2024 4:42 PM PRODUCT SUPPORT ENGINEER [facility] Swab VAGINAL STRUCTURE / Unknown Non-blood Collection / Unknown 06/21/2024 4:22 PM PRODUCT SUPPORT ENGINEER 06/21/2024 4:36 PM PRODUCT SUPPORT ENGINEER Esha Grimm PA-C LAB - MICRO GENERAL ORDERABLES Final Result [facility] Lab [address] [facility] Lab (no room number, 1st floor of clinic) [place] [address], [facility] documented in this encounter Visit Diagnoses Diagnosis Vaginal discharge Leukorrhea, not specified as infective Screen for STD (sexually transmitted disease) Screening examination for venereal disease documented in this encounter Additional Health Concerns Assessment Noted Time PHQ-9 Depression Total Score: 3 02/07/20 24 9:33 AM CDT documented as of this encounter Care Teams Hotel Supplies Salesperson Relationship Specialty Start Date End Date Esha Grimm PA-C [address] [place] [address] PCP - General Family Medicine 05/04/23 Diana Desir, [facility] 3033 [place] [address] Pharmacist Pharmacist 04/17/21 Rain Galaviz PA-C [address] [place] [address] [address] [place] [address] Physician Log Peeler Dermatology 04/28/21 Tavia Wyatt MD [address] [place] [address] [address] [place] [address] Dermatology 07/14/21 Erica Farrell APRN OBSTETRICS/GYNECOLOGY NURSE [address] [place] [address] Nurse Practitioner Cardiovascular Disease 09/09/21 Rich Barrett MD [address] [place] [address] [address] [place], [place] 4[address]85 Physician Ophthalmology 01/21/22 Neil Kent MD 500 [place] [address] Dermatology 02/24/22 Diana Desir, [facility] [address] [place] [address] Assigned MTM Pharmacist 04/07/22 Livan Sharif MD [address] [place] [address] Cardiovascular Disease 05/14/22 Catherine Cm MD [address] [place] 0218[address] Cardiovascular Disease 07/21/22 Valery Veronica PA-C [address] [place] [address] Physician Log Peeler Dermatology 07/21/22 Brea Quinn APRN OBSTETRICS/GYNECOLOGY NURSE [address] [place] [address] 658795 Nurse Practitioner Dermatology 09/21/22 Alfonso Renteria MD 5775 [facility] 200 [place] [address] Assigned Neuroscience Provider 04/02/23 Radha Lomeli APRN OBSTETRICS/GYNECOLOGY NURSE [address] [place] [id number] [place] [address] Assigned Heart and Vascular Provider 05/28/23 Jelena David OD [facility] [place] [address] Ophthalmology 06/15/23 Esha Grimm PA-C [address] [place] [address] Assigned PCP 07/16/23 Valery Veronica PA-C [address] [place] [address] 906705 Physician Log Peeler Dermatology 09/19/23 Rey Tay MD [address] [place] [address] MD Gastroenterology 09/20/23 Rocky Zepeda DO 500 [place] [address] Physician Gastroenterology 09/20/23 Philip Dumont MD 516 [place] [address] Physician Ophthalmology 09/22/23 Meredith Carrera PA-C 909 [place], [place] 77[address]55 Assigned Gastroenterology Provider 11/01/23 Neil Kent MD [address] [place] [address] Dermatology 11/02/23 [place] [address] [facility] [place] [address] Neurological Surgery 12/26/23 Audrey Waite PA-C 500 [place] [address] Physician Log Peeler Dermatology 02/28/24 Valery Veronica PA-C [address] [place] [address] Physician Log Peeler Dermatology 04/10/24 documented as of this encounter
--- OUTSIDE RECORDS SUMMARY | 2024-07-22 22:41 | XMS_ITS | Encounter Summary ---
Author Organization [place] Address [address] [place] [address] Care Team Providers Care Bingo Cashier Name Role Phone Diana Desir [facility] Unavailable Rain Galaviz PAUcheC Unavailable Tavia Wyatt MD Unavailable Erica Farrell DIRECTOR OF CURRICULUM PURCHASING SPECIALIST Unavailable Rich Barrett MD Unavailable [phone] Neil Kent MD Unavailable Kendrick Desirelle Stanislav [facility] Unavailable Livan Sharif MD Unavailable Catherine Cm MD Unavailable + Valery Veronica-C Unavailable Brea Quinn DIRECTOR OF CURRICULUM PURCHASING SPECIALIST Unavailable Alfonso Renteria MD Unavailable [phone] Esha GrimmC Primary Care Provider Radha Lomeli DIRECTOR OF CURRICULUM PURCHASING SPECIALIST Unavailable Jelena David OD Unavailable Esha Grimm PA-C Unavailable [phone] Valery Veronica PA-C Unavailable [phone] Rey Tay MD Unavailable Rocky Zepeda DO Unavailable Philip Dumont MD Unavailable [phone] Meredith Carrera-C Unavailable [phone] Neil Kent MD Unavailable Juan Pablo Emmanuel MD Unavailable [phone] Audrey Waite PA-C Unavailable [phone] Valery Veronica PA-C Unavailable [phone] Herminia Hatch MD Unavailable Encounter Details Date Type Department Care Team (Late st Contact Info) Description 06/20/2024 MyC Medical Advice [address] [address] Carley Myles RN Social History [...] exercise at this level? 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 AM ON AWAKE COUNSELOR Gender Identity Female 03/02/2021 5:45 PM CDT Sexual Orientation Straight 02/28/2020 12 :51 AM CDT documented as of this encounter Plan of Treatment Upcoming Encounters Date Type Department Care Team (Late st Contact Info) Description 10/23/2024 9:30 AM CDT Office Visit [facility] Neurology [address] [place] [address] [place] [address] [place] [address] Johnny Penn MD [address] [facility] [place] [id number] 11/28/2024 7:45 AM CDT Virtual Visit [facility] [address] 4th [place] [address] Meredith Carrera PA-C [address] [place] [address] 8[address]25 documented as of this encounter Visit Diagnoses Not on filedocumented in this encounter Additional Health Concerns Assessment Noted Time PHQ-9 Depression Total Score: 3 02/07/20 24 9:33 AM CDT documented as of this encounter Care Teams Bingo Cashier Relationship Specialty Start Date End Date Esha Grimm PA-C [address] [place] [address] PCP - General Family Medicine 05/04/23 Diana Desir, [facility] [address] [place] [address] Pharmacist Pharmacist 04/17/21 Rain Galaviz PA-C [address] [place] [address] [address] [place] [address] Physician Director Of Scout Work Dermatology 04/28/21 Tavia Wyatt MD [address] [place] [address] [address] [place], [place] [id number] Dermatology 07/14/21 Erica Farrell APRN PURCHASING SPECIALIST [address] [facility] [address] [place] [address] Nurse Practitioner Cardiovascular Disease 09/09/21 Rich Barrett MD [address] [facility] [address] [place], [place] 17[address]35 Physician Ophthalmology 01/21/22 Neil Kent MD 500 [place], [place] 461345 Dermatology 02/24/22 Diana Desir, [facility] 3033 [place] [address] Assigned MTM Pharmacist 04/07/22 Livan Sharif MD [address], [facility] [address] [place] [address] Cardiovascular Disease 05/14/22 Catherine Cm MD [address] [facility] [address] [place], [place] [address] Cardiovascular Disease 07/21/22 Valery Veronica PA-C 909 [place], [place] [address] Physician Director Of Scout Work Dermatology 07/21/22 Brea Quinn APRN PURCHASING SPECIALIST 500 [place], [place] 340775 Nurse Practitioner Dermatology 09/21/22 Alfonso Renteria MD 5775 [facility] 200 [place], [place] 271926 Assigned Neuroscience Provider 04/02/23 Radha Lomeli, [place] PURCHASING SPECIALIST [address] [place] [address] Assigned Heart and Vascular Provider 05/28/23 Jelena David OD [address] [facility] [place] [place] [address] Ophthalmology 06/15/23 Esha Grimm PAUcheC [address] [place] [address] Assigned PCP 07/16/23 Valery Veronica PA-C [address] [place] [address] Physician Director Of Scout Work Dermatology 09/19/23 Rey Tay MD [address] [place] [address] MD Gastroenterology 09/20/23 Rocky Zepeda DO [address] [place] [address] Physician Gastroenterology 09/20/23 Philip Dumont MD [address] [place] [address] Physician Ophthalmology 09/22/23 Meredith Carrera PA-C [address] [place] [address] Assigned Gastroenterology Provider 11/01/23 Neil Kent MD [address] [address] Dermatology 11/02/23 [place] [address] [place], [place] [address] Neurological Surgery 12/26/23 Audrey Waite PA-C [address] [place] [address] 971655 Physician Director Of Scout Work Dermatology 02/28/24 Valery Veronica PA-C [address] [place] [address] Physician Director Of Scout Work Dermatology 04/10/24 Herminia Hatch MD [address] [place] [address] [id number] Assigned Rheumatology Provider 07/02/24 documented as of this encounter
--- OUTSIDE RECORDS SUMMARY | 2024-07-22 22:41 | XMS_ITS | Encounter Summary ---
Author Organization [place] Address [address] [place] [address] Care Team Providers Care Cell Room Operator Name Role Phone Diana Desir [facility] Unavailable Rain Galaviz PAUcheC Unavailable Tavia Wyatt MD Unavailable Erica Farrell PROJECTION PRINTER FLOWER POT PRESS OPERATOR Unavailable Rich Barrett MD Unavailable [phone] Neil Kent MD Unavailable Kendrick Desirelle Stanislav [facility] Unavailable Livan Sharfi MD Unavailable Catherine Cm MD Unavailable + Valery Veronica-C Unavailable [phone] Brea Quinn PROJECTION PRINTER FLOWER POT PRESS OPERATOR Unavailable Alfonso Renteria MD Unavailable [phone] Esha GrimmC Primary Care Provider [phone] Radha Lomeli PROJECTION PRINTER FLOWER POT PRESS OPERATOR Unavailable Jelena David OD Unavailable [place], Esha M PA-C Unavailable [phone] Valery Veronica PA-C Unavailable [phone] Rey Tay MD Unavailable Rocky Zepeda DO Unavailable Philip Dumont MD Unavailable [phone] Meredith Carrera PA-C Unavailable [phone] Neil Kent MD Unavailable Juan Pablo Emmanuel MD Unavailable [phone] Audrey Waite PA-C Unavailable [phone] JeremíasValery damon PA-C Unavailable [phone] Reason for Visit * Reason Onset Date Comments Refill Request 06/20/2024 Tacrolimus 0.1% ointment & Triamcinolone 0.1% ointment Encounter Details Date Type Department Care Team (Late st Contact Info) Description 06/20/2024 Refill M [address] [address] Brea Quinn APRN [address] [address] Refill Request (Tacrolimus 0.1% ointment & Triamcinolone [...] Recorded PHQ-2 Score 1 02/07/2024 [facility] - Occupational Stress Questionnaire Answer Date Recorded [...] exercise at this level? 20 min 05/07/2024 [place] Depression Scale Answer Date Recorded [place] Depression Score 5 01/14/2021 Last EPDS Self [...] PM CDT Legal Sex Female 4:13 AM CENTRAL SUPPLY TECHNICIAN Gender Identity Female 03/02/2021 5:45 PM CDT Sexual Orientation Straight 02/28/2020 12 :51 AM CDT documented as of this encounter Miscellaneous Notes * Telephone Encounter - Antonella Eldridge RN - 06/21/2024 7:43 AM CENTRAL SUPPLY TECHNICIAN Routing refill request to provider for review/approval because: Triamcinolone not on the [facility] refill protocol Patient needs to be seen per protocol- has appt 06/25/24 w Jeremías at Derm. Antonella Kidd PRESS CATCHER [facility] Dermatology [phone] RAL SUPPLY TECHNICIAN * Telephone Encounter - Antonella Eldridge RN - 06/20/2024 1:28 PM CENTRAL SUPPLY TECHNICIAN Requested Prescriptions Pending Prescriptions Disp Refills tacrolimus [...] (Arrive by 8:25 AM) Valery Veronica PA-C [facility] Triamcinolone Last Written Prescription Date: 10/01/22 Last Fill Quantity: 80g, # refills: 2 Last office visit: 10/01/2022 ; last virtual visit: Visit date not found with prescribing provider: Brea Quinn APRN CNP Future Office Visit: 06/25/24 RAL SUPPLY TECHNICIAN RAL SUPPLY TECHNICIAN documented in this encounter Plan of Treatment Upcoming Encounters Date Type Department Care Team (Late st Contact Info) Description 10/23/2024 9:30 AM CDT Office Visit [facility] [place] [address] [facility], [address] [place] [phone] [place] [address] [place] [address] Johnny Penn MD [address] [facility] [place] [address] 11/28/2024 7:45 AM CDT Virtual Visit [facility] Gastroenterology Clinic [address] [place] [phone] Meredith Carrera PA-C [address] [place] [address] 806425 documented as of this encounter Visit Diagnoses Diagnosis Psoriasis Other psoriasis documented in this encounter Additional Health Concerns Assessment Noted Time PHQ-9 Depression Total Score: 3 02/07/20 24 9:33 AM CDT documented as of this encounter Care Teams Cell Room Operator Relationship Specialty Start Date End Date Esha Grimm PA-C [address] [place] [address] PCP - General Family Medicine 05/04/23 Diana Desir, [facility] 3033 [place] [address] Pharmacist Pharmacist 04/17/21 Rain Galaviz PA-C [address] [place] [address] [address] [place] [address] Physician Salary Manager Dermatology 04/28/21 Tavia Wyatt MD [address] [place] [address] [address] [place] [address] Dermatology 07/14/21 Erica Farrell APRN FLOWER POT PRESS OPERATOR [address] [place], [place] [address] Nurse Practitioner Cardiovascular Disease 09/09/21 Rich Barrett MD 516 [facility] 9A [place], [place] [address] Physician Ophthalmology 01/21/22 Neil Kent MD 500 [place], [place] [address] Dermatology 02/24/22 [facility] [address] [place] [address] Assigned [place] Pharmacist 04/07/22 Livan Sharif MD [address], [facility] [address] [place], [place] [address] Cardiovascular Disease 05/14/22 Catherine Cm MD [address] [facility] [place], [place] 4[address] Cardiovascular Disease 07/21/22 Valery Veronica, PA-C [address] [place] [address]8555 Physician Salary Manager Dermatology 07/21/22 Brea Quinn APRN FLOWER POT PRESS OPERATOR 500 [place] [address] Nurse Practitioner Dermatology 09/21/22 Alfonso Renteria MD [address] [place] [address] Assigned Neuroscience Provider 04/02/23 Radha Lomeli APRN FLOWER POT PRESS OPERATOR 6[address] [facility] [address] [place] [address] Assigned Heart and Vascular Provider 05/28/23 Jelena David OD [address] [place] [address] MD Ophthalmology 06/15/23 Esha Grimm PA-C [address] [place] [address] Assigned PCP 07/16/23 Valery Veronica PA-C [address] [place] [address] Physician Salary Manager Dermatology 09/19/23 Rey Tay MD [address] [place] [address] 403675 Gastroenterology 09/20/23 Rocky Zepeda DO [address] [place] [address] 637215 Physician Gastroenterology 09/20/23 Philip Dumont MD 6 [place], [place] [address] Physician Ophthalmology 09/22/23 Meredith Carrera PA-C 909 [place] [address] Assigned Gastroenterology Provider 11/01/23 Neil Kent MD [address] [address] Dermatology 11/02/23 [place] [address] [address] Neurological Surgery 12/26/23 Audrey Waite PA-C 500 [place] [address] Physician Salary Manager Dermatology 02/28/24 Valery Veronica PA-C [address] [place] [address] Physician Salary Manager Dermatology 04/10/24 documented as of this encounter
--- OUTSIDE RECORDS SUMMARY | 2024-07-22 22:41 | XMS_ITS | Encounter Summary ---
Author Organization [place] Address [address] [place] [address] Care Team Providers Care Sebd Teacher Name Role Phone Diana Desir [facility] Unavailable Rain Galaviz PAUcheC Unavailable Tavia Wyatt MD Unavailable Erica Farrell BIAS CUTTER HELPER CAR EXAMINER Unavailable Rich Barrett MD Unavailable [phone] Neil Kent MD Unavailable Kendrick Desirelle Stanislav [facility] Unavailable Livan Sharif MD Unavailable Catherine Cm MD Unavailable + Valery Veronica-C Unavailable Brea Quinn BIAS CUTTER HELPER CAR EXAMINER Unavailable Alfonso Renteria MD Unavailable [phone] Esha GrimmC Primary Care Provider Radha Lomeli BIAS CUTTER HELPER CAR EXAMINER Unavailable Jelena David OD Unavailable Esha Grimm PA-C Unavailable [phone] Valery VeronicaC Unavailable [phone] Rey Tay MD Unavailable Rocky Zepeda DO Unavailable Philip Dumont MD Unavailable Meredith CarreraC Unavailable [phone] Neil Kent MD Unavailable Juan Pablo Emmanuel MD Unavailable [phone] Audrey WaiteC Unavailable [phone] Valery VeronicaC Unavailable [phone] Herminia Hatch MD Unavailable Reason for Visit * Reason Onset Date Comments Patient Request for Note/Letter 07/16/2024 Medication Question 07/16/2024 Encounter Details Date Type Department Care Team (Late st Contact Info) Description 07/16/2024 MyC Medical Advice [facility] [address] [place] [address] Esha Grimm PA-C [address] [place] [address] Patient Request for Note/Letter; Medicatio... Social [...] Answer Date Recorded PHQ-2 Score 1 02/07/2024 [facility] - Occupational Stress Questionnaire [...] exercise at this level? 20 min 05/07/2024 [place] Depression Scale Answer Date Recorded [place] Depression Score 5 01/14/2021 Last EPDS Self [...] in an overnight alf, or couch-surfing.) Yes 05/07/2024 Are you worried [...] PM CDT Legal Sex Female 4:13 AM OPERATIONS VOCATIONAL INSTRUCTOR Gender Identity Female 03/02/2021 5:45 PM CDT [...] States she tested positive for BV at [facility], but they keep writing the prescription wrong [...] done without a visit. Anni Grimm RN ATIONS VOCATIONAL INSTRUCTOR documented in this encounter Plan of Treatment Upcoming Encounters Date Type Department Care Team (Late st Contact Info) Description 10/23/2024 9:30 AM CDT Office Visit [facility] Neurology [facility] [address] [place] [address], [address] [place] [address] [place] [address] [place] [address] Johnny Penn MD 9652 [place], [place] [address] 11/28/2024 7:45 AM CDT Virtual Visit [facility] Gastroenterology Clinic [address] [phone] Meredith Carrera PA-C [address] [place] [address] 742775 documented as of this encounter Visit Diagnoses Not on filedocumented in this encounter Additional Health Concerns Assessment Noted Time PHQ-9 Depression Total Score: 3 02/07/20 24 9:33 AM CDT documented as of this encounter Care Teams Sebd Teacher Relationship Specialty Start Date End Date Esha Grimm PA-C [address] [place] [phone] PCP - General Family Medicine 05/04/23 Diana Desir, [facility] [address] [place] [address] Pharmacist Pharmacist 04/17/21 Rain Galaviz PA-C [address] [place] [address] [address] [facility] [place] [address] Physician Jinrikisha Driver Dermatology 04/28/21 Tavia Wyatt MD [address] [place] [address] [address] [facility] [place] [address] Dermatology 07/14/21 Erica Farrell APRN CAR EXAMINER [address] [place] 3[address]05 Nurse Practitioner Cardiovascular Disease 09/09/21 Rich Barrett MD [address] [place] [address], [facility] 9A [place], [place] [address] Physician Ophthalmology 01/21/22 Neil Kent MD 500 [place] [address] Dermatology 02/24/22 [facility] 30[address] [place] [address] Assigned MTM Pharmacist 04/07/22 Livan Sharif MD [address] [facility] [address] [place] [address] Cardiovascular Disease 05/14/22 Catherine Cm MD [address] [facility] [address] [place] [address] Cardiovascular Disease 07/21/22 Valery Veronica PA-C [address] [place] [address] Physician Jinrikisha Driver Dermatology 07/21/22 Brea Quinn APRN CAR EXAMINER [address] [place] [address] 773695 Nurse Practitioner Dermatology 09/21/22 Alfonso Renteria MD [address] [facility] 200 [place], [place] [address] Assigned Neuroscience Provider 04/02/23 Radha Lomeli APRN CAR EXAMINER [address] [place] [address] Assigned Heart and Vascular Provider 05/28/23 Jelena David OD [address] [place] [address] [place] [address] Ophthalmology 06/15/23 Esha Grimm PA-C [address] [place] [address] Assigned PCP 07/16/23 Valery Veronica PA-C [address] [place] [address] Physician Jinrikisha Driver Dermatology 09/19/23 Rey Tay MD [address] [place] [address] MD Gastroenterology 09/20/23 Rocky Zepeda DO 500 [place] [address] Physician Gastroenterology 09/20/23 Philip Dumont MD [address] [place] [address] Physician Ophthalmology 09/22/23 Meredith Carrera PA-C 909 [place], [place] 803445 Assigned Gastroenterology Provider 11/01/23 Neil Kent MD [address] [address] MD Dermatology 11/02/23 [place] [address] [place] [address] 681477 Neurological Surgery 12/26/23 Audrey Waite PA-C 500 [place] [address] Physician Jinrikisha Driver Dermatology 02/28/24 Valery Veronica PA-C [id number] [place], [place] [address] Physician Jinrikisha Driver Dermatology 04/10/24 Herminia Hatch MD 1875 [place] [address] Assigned Rheumatology Provider 07/02/24 documented as of this encounter
--- OUTSIDE RECORDS SUMMARY | 2024-07-22 22:41 | XMS_ITS | Encounter Summary ---
Author Organization [place] Address [address] [place] [address] Care Team Providers Care Energy Consultant Name Role Phone Diana Desir [facility] Unavailable Rain Galaviz PAUcheC Unavailable [phone] Tavia Wyatt MD Unavailable Erica Farrell TICKET CLERK ADVERTISING DISPLAY ROTATOR Unavailable Rich Barrett MD Unavailable [phone] Neil Kent MD Unavailable Kendrick Desirelle Stanislav [facility] Unavailable Livan Sharif MD Unavailable Catherine Cm MD Unavailable + Valery Veronica-C Unavailable Brea Quinn TICKET CLERK ADVERTISING DISPLAY ROTATOR Unavailable Alfonso Renteria MD Unavailable [phone] Esha GrimmC Primary Care Provider Radha Lomeli TICKET CLERK ADVERTISING DISPLAY ROTATOR Unavailable Jelena David OD Unavailable Alfa, Esha M PA-C Unavailable [phone] Valery Veronica PA-C Unavailable [phone] Rey Tay MD Unavailable Rocky Zepeda DO Unavailable Philip Dumont MD Unavailable [phone] Meredith Carrera PA-C Unavailable [phone] Neil Kent MD Unavailable Juan Pablo Emmanuel MD Unavailable [phone] Audrey Waite PA-C Unavailable [phone] Valery Veronica PA-C Unavailable [phone] Reason for Visit * Rehab Therapy Physical Therapy (Priority: 1-2 Weeks) - Pending Review Specialty Diagnoses / Procedures Referred By Qian mayers Referred To Contact Diagnoses Chiari malformation type I (H) Neck pain Ebony Cid, [facility] [address] [place] [address] Phone: tel: fax: Referral ID Status Reason Start Date Expiration Date V isits Requested Visits Authorized [id number] Pending Review 01/05/2024 01/04/2025 1 1 Encounter Details Date Type Department Care Team (Latest Contact Info) Description 05/14/2024 2:50 PM HOTEL AND DINING ROOM CASHIER Therapy Visit [facility] [address] [place] [address] Ingris Thompson, PT [facility] [address] [facility] [address] [place] [address] Neck pain (Primary Dx) Social [...] [facility] - Occupational Stress Questionnaire Answer [...] exercise at this level? 20 min 05/07/2024 Ruthven Depression Scale Answer Date Recorded Ruthven Depression Score 5 01/14/2021 Last EPDS Self [...] PM CDT Legal Sex Female 4:13 AM HOTEL AND DINING ROOM CASHIER Gender Identity Female 03/02/2021 5:45 PM [...] Goal Description Ability to lift for child support specialist and housework without neck or back pain [...] Therapeutic Procedures: strength, endurance, ROM, flexibility minutes (42969) 25 PTRx Ther Proc 1 Pec Stretch [...] Therapy: Mobilization, MFR, MLD, friction massage minutes (44482) 15 Manual Therapy 1 joint mobilizations Manual [...] (sum of timed and untimed services) 40 L AND DINING ROOM CASHIER * Ingris Thompson, PT - 06/22/2024 12:19 PM CST [facility] OUTPATIENT PHYSICAL THERAPY PLAN OF TREATMENT FOR OUTPATIENT REHABILITATION Patient's Last Name, First Name, Kim White Date of : 2000 Provider's Name Adam [facility] Onset Date: 01/05/24 ( order) Start of [...] Goal Description Ability to lift for child support specialist and housework without neck or back pain [...] Therapeutic Procedures: strength, endurance, ROM, flexibility minutes (29270) 25 PTRx Ther Proc 1 Pec Stretch [...] Therapy: Mobilization, MFR, MLD, friction massage minutes (28041) 15 Manual Therapy 1 joint mobilizations Manual [...] Paramjit Meyer DO at 06/22/2024 2:09 PM HOTEL AND DINING ROOM CASHIER L AND DINING ROOM CASHIER L AND DINING ROOM CASHIER Associated attestation - Paramjit Meyer DO - 06/22/2024 2:09 PM HOTEL AND DINING ROOM CASHIER I agree with the plan. documented in this encounter Plan of Treatment Upcoming Encounters Date Type Department Care Team (Late st Contact Info) Description 10/23/2024 9:30 AM CDT Office Visit [facility] Neurology Clinics - [address], [address] [place] [address] [place] [address] [place] [address] Johnny Penn MD [address] [place] [place] [address] 11/28/2024 7:45 AM CDT Virtual Visit [facility] [address] 4th [place] [phone] Meredith Carrera PA-C [address] [place] [address] documented as of this encounter Visit Diagnoses Diagnosis Neck pain- Primary Cervicalgia documented in this encounter Additional Health Concerns Assessment Noted Time PHQ-9 Depression Total Score: 3 02/07/20 24 9:33 AM CDT documented as of this encounter Care Teams Energy Consultant Relationship Specialty Start Date End Date Esha Grimm PA-C [address] [place] [phone] PCP - General Family Medicine 05/04/23 Diana Desir, [facility] [address] [place], [place] [address] Pharmacist Pharmacist 04/17/21 Rain Galaviz PA-C [address] [place] [address] [address] [place] [address] Physician [employer] Dermatology 04/28/21 Tavia Wyatt MD [address] [place] [address] [address] [place] [address] Dermatology 07/14/21 Erica Farrell APRN ADVERTISING DISPLAY ROTATOR [address] [place] [address] Nurse Practitioner Cardiovascular Disease 09/09/21 Rich Barrett MD 516 [facility], [facility] [address] [place] [address] Physician Ophthalmology 01/21/22 Neil Kent MD [address] [place], [place] [address]995 MD Dermatology 02/24/22 [facility] [address] [place] [address] Assigned [place] Pharmacist 04/07/22 Livan Sharif MD [address], [facility] [address] [place], [place] [address]12[address] Cardiovascular Disease 05/14/22 Catherine Cm MD [address] [facility] [address] [place], [place] [address] Cardiovascular Disease 07/21/22 Valery Veronica, PA-C [address] [place], [place] 8[address] Physician [employer] Dermatology 07/21/22 Brea Quinn APRN ADVERTISING DISPLAY ROTATOR 500 [place], [place] [address] Nurse Practitioner Dermatology 09/21/22 Alfonso Renteria MD [address] [facility] [address] [place], [place] [address]26946 Assigned Neuroscience Provider 04/02/23 Radha Lomeli TICKET CLERK ADVERTISING DISPLAY ROTATOR [address] [place], [place] [address] Assigned Heart and Vascular Provider 05/28/23 Jelena David OD [address] [facility] [place] [address] MD Ophthalmology 06/15/23 Esha Grimm PA-C [address] [place] [phone] Assigned PCP 07/16/23 Valery Veronica PA-C [address] [place] [address] 851495 Physician [employer] Dermatology 09/19/23 Rey Tay MD [address] [place] [address] 274235 Gastroenterology 09/20/23 Rocky Zepeda DO [address] [place] [address] 086945 Physician Gastroenterology 09/20/23 Philip Dumont MD [address] [place] [address] 717835 Physician Ophthalmology 09/22/23 Meredith Carrera PA-C [address] [place] [address] 810685 Assigned Gastroenterology Provider 11/01/23 Neil Kent MD [address] 213550 Dermatology 11/02/23 [place] [address] [place] [address] [address] Neurological Surgery 12/26/23 Audrey Waite PA-C 500 [place] [address] Physician [employer] Dermatology 02/28/24 Valery Veronica PA-C [address] [place] [address] Physician [employer] Dermatology 04/10/24 documented as of this encounter
--- OUTSIDE RECORDS SUMMARY | 2024-07-22 22:41 | XMS_ITS | Encounter Summary ---
Author Organization [place] Address [address] [place] [address] Care Team Providers Care Physical Therapy Aides Teacher Name Role Phone Diana Desir [facility] Unavailable Rain Galaviz PAUcheC Unavailable Tavia Wyatt MD Unavailable Erica Farrell UTILITY MECHANIC ANALYTICAL CHEMISTRY TEACHER Unavailable Rich Barrett MD Unavailable [phone] Neil Kent MD Unavailable Kendrick Desirelle Stanislav [facility] Unavailable Livan Sharif MD Unavailable Catherine Cm MD Unavailable + Valery Veronica-C Unavailable [phone] Brea Quinn UTILITY MECHANIC ANALYTICAL CHEMISTRY TEACHER Unavailable Alfonso Renteria MD Unavailable [phone] Esha GrimmC Primary Care Provider [phone] Radha Lomeli UTILITY MECHANIC ANALYTICAL CHEMISTRY TEACHER Unavailable Jelena David OD Unavailable Esha Grimm PA-C Unavailable [phone] Valery Veronica PA-C Unavailable [phone] Rey Tay MD Unavailable Rocky Zepeda DO Unavailable Philip Dumont MD Unavailable [phone] Meredith CarreraC Unavailable [phone] Neil Kent MD Unavailable Juan Pablo Emmanuel MD Unavailable [phone] Audrey Waite-C Unavailable [phone] Valery Vernoica-C Unavailable [phone] Herminia Hatch MD Unavailable Encounter Details Date Type Department Care Team (Late st Contact Info) Description 06/21/2024 MyC Medical Advice [address] [address] Antonella Eldridge RN Social History [...] [facility] - Occupational Stress Questionnaire Answer Date [...] exercise at this level? 20 min 05/07/2024 Walker Depression Scale Answer Date Recorded Walker Depression Score 5 01/14/2021 Last EPDS Self [...] PM CDT Legal Sex Female 4:13 AM RENTAL BOATS CARETAKER Gender Identity Female 03/02/2021 5:45 PM CDT Sexual Orientation Straight 02/28/2020 12 :51 AM CDT documented as of this encounter Plan of Treatment Upcoming Encounters Date Type Department Care Team (Late st Contact Info) Description 10/23/2024 9:30 AM CDT Office Visit [facility] Neurology [address], [address] [place] [address] [place] [address] [place] [address] Johnny Penn MD [address] [facility] [place] [address] 11/28/2024 7:45 AM CDT Virtual Visit [facility] Gastroenterology Clinic [address] 4th [place] [address] Meredith Carrera PA-C [address] [place] [address] documented as of this encounter Visit Diagnoses Not on filedocumented in this encounter Additional Health Concerns Assessment Noted Time PHQ-9 Depression Total Score: 3 02/07/20 24 9:33 AM CDT documented as of this encounter Care Teams Physical Therapy Aides Teacher Relationship Specialty Start Date End Date Esha Grimm PA-C [address] [place] [address] PCP - General Family Medicine 05/04/23 Diana Desir, [facility] [address] [place], [place] [address] Pharmacist Pharmacist 04/17/21 Rain Galaviz PA-C [address] [place] [address] [address] [place] [address] Physician Rip/Mould Operator Dermatology 04/28/21 Tavia Wyatt MD [address] [place] [address] [address] [place] [address] [id number] Dermatology 07/14/21 Erica Farrell APRN ANALYTICAL CHEMISTRY TEACHER 6405 [facility] [address] [place], [place] 8[address] Nurse Practitioner Cardiovascular Disease 09/09/21 Rich Barrett MD [address] 970935 Physician Ophthalmology 01/21/22 Neil Kent MD 500 [place], [place] 9[address]95 Dermatology 02/24/22 Diana Desir, [facility] [address] [place], [place] 392316 Assigned MTM Pharmacist 04/07/22 Livan Sharif MD [address], [address] [place] [address] Cardiovascular Disease 05/14/22 Catherine Cm MD [address] [place], [place] 8[address] Cardiovascular Disease 07/21/22 Valery Veronica, PA-C 909 [place], [place] 466135 Physician Rip/Mould Operator Dermatology 07/21/22 Brea Quinn APRN ANALYTICAL CHEMISTRY TEACHER 500 [place], [place] 545225 Nurse Practitioner Dermatology 09/21/22 Alfonso Renteria MD 5775 [facility] 200 [place], [place] 614936 Assigned Neuroscience Provider 04/02/23 Radha Lomeli APRN ANALYTICAL CHEMISTRY TEACHER [address] [place] 236015 Assigned Heart and Vascular Provider 05/28/23 Jelena David OD [address] [facility] [place] [address] Ophthalmology 06/15/23 Esha Grimm PA-C [address] [place] [address] Assigned PCP 07/16/23 Valery Veronica PA-C [address] [place] [address] 220435 Physician Rip/Mould Operator Dermatology 09/19/23 Rey Tay MD [address] [place] [address] MD Gastroenterology 09/20/23 Rocky Zepeda DO [address] [place] [address] 809985 Physician Gastroenterology 09/20/23 Philip Dumont MD [address] [place] [address] 098015 Physician Ophthalmology 09/22/23 Meredith Carrera PA-C [address] [place] [address] Assigned Gastroenterology Provider 11/01/23 Neil Kent MD [address] [address] Dermatology 11/02/23 [place] [address] [place], [place] [address] Neurological Surgery 12/26/23 Audrey Waite PA-C [address] [place] [address]755 Physician Rip/Mould Operator Dermatology 02/28/24 Valery Veronica PA-C [address] [place] [address] Physician Rip/Mould Operator Dermatology 04/10/24 Herminia Hatch MD [facility]5 [place], [place] [phone] Assigned Rheumatology Provider 07/02/24 documented as of this encounter
--- OUTSIDE RECORDS SUMMARY | 2024-07-22 22:41 | XMS_ITS | Encounter Summary ---
Author Organization [place] Address [address] [place] [address] Care Team Providers Care Biochemical Development Engineer Name Role Phone Diana Desir [facility] Unavailable [phone] Rain Galaviz PAUcheC Unavailable [phone] Tavia Wyatt MD Unavailable Erica Farrell FINISHER MAP AND CHART CORPORATE STATISTICAL FINANCIAL ANALYST Unavailable Rich Barrett MD Unavailable [phone] Neil Kent MD Unavailable Kendrick Desirelle Stanislav [facility] Unavailable Livan Sharif MD Unavailable Catherine Cm MD Unavailable + Valery Veronica-C Unavailable Brea Quinn FINISHER MAP AND CHART CORPORATE STATISTICAL FINANCIAL ANALYST Unavailable Alfonso Renteria MD Unavailable [phone] Esha GrimmC Primary Care Provider Radha Lomeli FINISHER MAP AND CHART CORPORATE STATISTICAL FINANCIAL ANALYST Unavailable Jelena David OD Unavailable Alfa, Esha M PA-C Unavailable [phone] Valery Veronica PA-C Unavailable Rey Tay MD Unavailable Rocky Zepeda DO Unavailable Philip Dumont MD Unavailable Meredith Carrear PA-C Unavailable [phone] Neil Kent MD Unavailable Juan Pablo Emmanuel MD Unavailable [phone] Audrey Waite PA-C Unavailable [phone] Valery Veronica PA-C Unavailable [phone] Herminia Hatch MD Unavailable Reason for Visit * Reason Onset Date Comments Appointment 07/12/2024 Encounter Details Date Type Department Care Team (Late st Contact Info) Description 07/12/2024 Telephone [facility] Neurology [address], [address] [place] [address] Johnny Penn MD 6388 [place] [address] Appointment Social History Tobacco Use [...] week 05/07/2024 How often [facility] you [facility]? 1 to 4 times [...] Answer Date Recorded PHQ-2 Score 1 02/07/2024 [facility] - Occupational Stress Questionnaire Answer Date [...] PM CDT Legal Sex Female 4:13 AM PAN DEVULCANIZER Gender Identity Female 03/02/2021 5:45 PM CDT Sexual Orientation Straight 02/28/2020 12 :51 AM CDT documented as of this encounter Miscellaneous Notes * Telephone Encounter - Eden Moyer - 07/12/2024 8:54 AM CST Called waitlist patient and offered an appointment with Isamar on this date 07-19-24 & time 11a. at this location [place] Please note there is no guarantee this appointment will be available as it is first come first serve. DEVULCANIZER documented in this encounter Plan of Treatment Upcoming Encounters Date Type Department Care Team (Late st Contact Info) Description 10/23/2024 9:30 AM CDT Office Visit [facility] Neurology [facility] - [address], [address] [place] [address] [place] [address] [place], [place] 3195[address] Johnny Penn MD [address] [facility] [place] [address] 11/28/2024 7:45 AM CDT Virtual Visit [facility] Gastroenterology Clinic [address] 4th [place] [phone] Meredith Carrera PA-C [address] [place] [address] 449285 documented as of this encounter Visit Diagnoses Not on filedocumented in this encounter Additional Health Concerns Assessment Noted Time PHQ-9 Depression Total Score: 3 02/07/20 24 9:33 AM CDT documented as of this encounter Care Teams Biochemical Development Engineer Relationship Specialty Start Date End Date Esha Grimm, PA-C [address] [place] [phone] PCP - General Family Medicine 05/04/23 Diana Desir, [facility] [address] [place] [address] Pharmacist Pharmacist 04/17/21 Rain Galaviz PA-C [address] [place] [address] [address] [place] [address] Physician Coke Worker Dermatology 04/28/21 Tavia Wyatt MD [address] [place] [place] [address] [address] [place] [address] Dermatology 07/14/21 StoesErica youssef APRN CORPORATE STATISTICAL FINANCIAL ANALYST [address] [place], [place] [address] Nurse Practitioner Cardiovascular Disease 09/09/21 Rich Barrett MD 516 [facility] [address] [place] [address] Physician Ophthalmology 01/21/22 Neil Kent MD 500 [place] [address] Dermatology 02/24/22 Diana Desir, [facility] 3033 [place], [place] 596436 Assigned [place] Pharmacist 04/07/22 Livan Sharif MD [address], [address] [place], [place] 26[address] Cardiovascular Disease 05/14/22 Catherine Cm MD [address] [place], [place] 97[address] Cardiovascular Disease 07/21/22 Valery Veronica, PA-C 909 [place], [place] [address]185 Physician Coke Worker Dermatology 07/21/22 Brea Quinn APRN CORPORATE STATISTICAL FINANCIAL ANALYST 500 [place], [place] 761745 Nurse Practitioner Dermatology 09/21/22 Alfonso Renteria MD [address] [place] [address] Assigned Neuroscience Provider 04/02/23 Radha Lomeli APRN CORPORATE STATISTICAL FINANCIAL ANALYST [address] [place] [address] Assigned Heart and Vascular Provider 05/28/23 Jelena David OD [address] [facility] [place] [address] MD Ophthalmology 06/15/23 Ehsa Grimm PA-C [address] [place] [phone] Assigned PCP 07/16/23 Valery Veronica PA-C [address] [place] [address] Physician Coke Worker Dermatology 09/19/23 Rey Tay MD [address] [place] [address] Gastroenterology 09/20/23 Rocky Zepeda DO [address] [place] [address] 383225 Physician Gastroenterology 09/20/23 Philip Dumont MD [address] [place] [address] 636875 Physician Ophthalmology 09/22/23 Meredith Carrera PA-C [address] [place] [address] 071245 Assigned Gastroenterology Provider 11/01/23 Neil Kent MD [address] [place] [address] Dermatology 11/02/23 [place] [address] [place] [address] 974[address] Neurological Surgery 12/26/23 Audrey Waite PABaldo 500 [place] [address] Physician Coke Worker Dermatology 02/28/24 Valery Veronica PA-C 733593 [address], [place] [address] Physician Coke Worker Dermatology 04/10/24 Herminia Hatch MD [facility]5 [place], [place] [address] Assigned Rheumatology Provider 07/02/24 documented as of this encounter
--- OUTSIDE RECORDS SUMMARY | 2024-07-22 22:41 | XMS_ITS | Encounter Summary ---
Author Organization [place] Address [address] [place] [address] Care Team Providers Care Salesperson Art Objects Name Role Phone Diana Desir [facility] Unavailable Rain Galaviz PAUcheC Unavailable Tavia Wyatt MD Unavailable Erica Farrell OIL FIELD OPERATOR RN OUTPATIENT SURGERY Unavailable Rich Barrett MD Unavailable [phone] Neil Kent MD Unavailable Kendrick Desirelle Stanislav [facility] Unavailable Livan Sharif MD Unavailable Catherine Cm MD Unavailable + Valery Veronica-C Unavailable Brea Quinn OIL FIELD OPERATOR RN OUTPATIENT SURGERY Unavailable Alfonso Renteria MD Unavailable [phone] Esha GrimmC Primary Care Provider [phone] Radha Lomeli OIL FIELD OPERATOR RN OUTPATIENT SURGERY Unavailable Jelena David OD Unavailable [place], Esha M PA-C Unavailable [phone] Valery Veronica PA-C Unavailable [phone] Rey Tay MD Unavailable Rocky Zepeda DO Unavailable Philip Dumont MD Unavailable [phone] Meredith Carrera-C Unavailable [phone] Neil Kent MD Unavailable Juan Pablo Emmanuel MD Unavailable [phone] Audrey Waite PA-C Unavailable [phone] Valery Veronica-C Unavailable [phone] Herminia Hatch MD Unavailable Encounter Details Date Type Department Care Team (Late st Contact Info) Description 06/05/2024 [facility] Medical Advice [address] [address] Herminia Hatch MD [address] [place] [address] Social History Tobacco Use Types Packs/Day [...] Score 1 02/07/2024 [facility] [...] exercise at this level? 20 min 05/07/2024 [place] Depression Scale Answer Date Recorded [place] Depression Score 5 01/14/2021 Last EPDS Self [...] in an overnight longterm, or couch-surfing.) Yes 05/07/2024 Are you worried [...] CDT Legal Sex Female 4:13 AM AUTOMATIC PRINT DEVELOPER Gender Identity Female 03/02/2021 5:45 PM CDT Sexual Orientation Straight 02/28/2020 12 :51 AM CDT documented as of this encounter Plan of Treatment Upcoming Encounters Date Type Department Care Team (Late st Contact Info) Description 10/23/2024 9:30 AM CDT Office Visit [facility] Neurology [address] [place] [address] [place] [address] [place] [address] 639407 Johnny Penn MD [address] [place] [address] 11/28/2024 7:45 AM CDT Virtual Visit [facility] Gastroenterology Clinic [address] 4th [place] [address] Meredith Carrera PA-C 909 [place] [address] documented as of this encounter Visit Diagnoses Not on filedocumented in this encounter Additional Health Concerns Assessment Noted Time PHQ-9 Depression Total Score: 3 02/07/20 24 9:33 AM CDT documented as of this encounter Care Teams Salesperson Art Objects Relationship Specialty Start Date End Date Esha Grimm PA-C [address] [place] [address] PCP - General Family Medicine 05/04/23 Diana Desir, [facility] [address] [place] [address] Pharmacist Pharmacist 04/17/21 Rain Galaviz PA-C [address] [place] [address] [address] [place] [address] Physician Record Changer Assembler Dermatology 04/28/21 Tavia Wyatt MD [address] [place] [address] [address] [place] [address] Dermatology 07/14/21 Erica Farrell APRN RN OUTPATIENT SURGERY 6405 [facility] [address] [place], [place] [address] Nurse Practitioner Cardiovascular Disease 09/09/21 Rich Barrett MD 516 [facility] 9A [place], [place] 6[address] Physician Ophthalmology 01/21/22 Neil Kent MD [address] [place] [address] Dermatology 02/24/22 [facility] [address] [place] [address] Assigned MTM Pharmacist 04/07/22 Livan Sharif MD [address], [facility] [address] [place], [place] 439[address] Cardiovascular Disease 05/14/22 Catherine Cm MD [address] [facility]00 [place] [address] Cardiovascular Disease 07/21/22 Valery Veronica, PA-C 909 [place] [address] Physician Record Changer Assembler Dermatology 07/21/22 Brea Quinn APRN RN OUTPATIENT SURGERY 500 [place] [address] Nurse Practitioner Dermatology 09/21/22 Alfonso Renteria MD 5775 [facility] 200 [place] [address] Assigned Neuroscience Provider 04/02/23 Radha Lomeli APRN RN OUTPATIENT SURGERY [address] [place] [address]205 Assigned Heart and Vascular Provider 05/28/[address] J[address] David [address] [facility] [place] [address] MD Ophthalmology 06/15/23 Esha Grimm PA-C [address] [place] [address] Assigned PCP 07/16/23 Valery Veronica PA-C [address] [place] [address] 360165 Physician Record Changer Assembler Dermatology 09/19/23 Rey Tay MD [address] [place] [address] 212355 MD Gastroenterology 09/20/23 Rocky Zpeeda DO [address] [place] [address] 103035 Physician Gastroenterology 09/20/23 Philip Dumont MD [address] [place] [address] 784715 Physician Ophthalmology 09/22/23 Meredith Carrera PA-C [address] [place] [address] 092455 Assigned Gastroenterology Provider 11/01/23 Neil Kent MD [address] [place] [address] Dermatology 11/02/23 [place] [address] [place] [address] Neurological Surgery 12/26/23 Audrey Waite PA-C 500 [place] [address] Physician Record Changer Assembler Dermatology 02/28/24 Valery Veronica PA-C [address] [place] [address] Physician Record Changer Assembler Dermatology 04/10/24 Herminia Hatch MD [address] [place] [address] Assigned Rheumatology Provider 07/02/24 documented as of this encounter
--- OUTSIDE RECORDS SUMMARY | 2024-07-22 22:42 | XMS_ITS | Encounter Summary ---
Author Organization [place] Address [address] [place] [address] Care Team Providers Care Repairer Engine Production Name Role Phone Diana Desir [facility] Unavailable Rain Galaviz PA-C Unavailable Tavia Wyatt MD Unavailable Erica Farrell APRN WATERPROOFER HELPER Unavailable Rich Barrett MD Unavailable [phone] Neil Kent MD Unavailable Diana Desir [facility] Unavailable Livan Sharif MD Unavailable Catherine Cm MD Unavailable + Valery Veronica PA-C Unavailable Brea Quinn IMAGING CENTER MANAGER WATERPROOFER HELPER Unavailable Brea Quinn IMAGING CENTER MANAGER WATERPROOFER HELPER Unavailable Jose Francisco Johnson MD Unavailable Alfonso Renteria MD Unavailable [phone] Esha Grimm PA-C Primary Care Provider Radha Lomeli APRN WATERPROOFER HELPER Unavailable Jelena David OD Unavailable Pao Joseph RN Unavailable Unavailable Esha Grimm PA-C Unavailable [phone] Valery Veronica PA-C Unavailable [phone] Rey Tay MD Unavailable Rocky Zepeda DO Unavailable Philip Dumont MD Unavailable [phone] Meredith Carrera PA-C Unavailable [phone] Neil Kent MD Unavailable Juan Pablo Emmanuel MD Unavailable [phone] Audrey Waite PA-C Unavailable [phone] Valery Veronica PA-C Unavailable [phone] Herminia Hatch MD Unavailable Encounter Details Date Type Department Care Team (Late st Contact Info) Description 10/26/2023 [facility] Medical Advice [facility] Gastroenterology Clinic [address] [address] [place] Social History Tobacco [...] How often do you attend [facility] or latter day services? 1 to [...] 0 10/25/2023 [facility] - [...] exercise at this level? 30 min 03/10/2023 [place] Depression Scale Answer Date Recorded [place] [...] CDT Legal Sex Female 4:13 AM TECHNICAL RESEARCH SCIENTIST Gender Identity Female 03/02/2021 5:45 PM CDT Sexual Orientation Straight 02/28/2020 12 :51 AM CDT documented as of this encounter Plan of Treatment Upcoming Encounters Date Type Department Care Team (Late st Contact Info) Description 10/23/2024 9:30 AM CDT Office Visit [facility] Neurology [address], [address] [place] [address] [place] [address] [place] [address] Johnny Penn MD [address] [place] 962625 11/28/2024 7:45 AM CDT Virtual Visit [facility] Gastroenterology Clinic [address] 4th [place] [address] Meredith Carrera PAUcheC 909 [place] [address] documented as of this encounter Visit Diagnoses Not on filedocumented in this encounter Additional Health Concerns Infection Onset Date Last Indicated Resolved Time Rule Out COVID-19 12/26/2023 12/26/2023 12/26/2023 9:50 AM CDT Rule Out COVID-19 04/09/2024 04/09/2024 04/10/2024 6:48 PM CDT Assessment Noted Time PHQ-9 Depression Total Score: 4 06/20/20 8:40 AM TECHNICAL RESEARCH SCIENTIST documented as of this encounter Care Teams Repairer Engine Production Relationship Specialty Start Date End Date Esha Grimm PA-C [address] [place] [address] PCP - General Family Medicine 05/04/23 Diana Desir, [facility] 3033 [place] [address] Pharmacist Pharmacist 04/17/21 Rain Galaviz PA-C [address] [place] [address] [address] [place] [address] Physician Pest Locator Dermatology 04/28/21 Tavia Wyatt MD [address] [place] [address] [address] [place] [address] Dermatology 07/14/21 Erica Farrell APRN WATERPROOFER HELPER [address] [place] 7921500 [place] [address] Nurse Practitioner Cardiovascular Disease 09/09/21 Rich Barrett MD [address] [place] [address] Physician Ophthalmology 01/21/22 Neil Kent MD 500 [place], [place] 950875 Dermatology 02/24/22 Diana Desir, [facility] 30[address] [place] [address] Assigned MTM Pharmacist 04/07/22 Livan Sharif MD [address] 680895 Cardiovascular Disease 05/14/22 Catherine Cm MD [address] 482865 Cardiovascular Disease 07/21/22 Valery Veronica, PA-C 909 [place], [place] 368575 Physician Pest Locator Dermatology 07/21/22 Brea Quinn APRN WATERPROOFER HELPER 500 [place] [address] Nurse Practitioner Dermatology 09/21/22 Brea Quinn APRN WATERPROOFER HELPER [address] [place] [address] [facility] [place] [address] Assigned Surgical Provider 10/09/22 05/01/24 [place] [address] 511717 Assigned Musculoskeletal Provider 10/09/22 05/01/24 Alfonso Renteria MD [address] [place] [address] Assigned Neuroscience Provider 04/02/23 Radha Lomeli APRN WATERPROOFER HELPER 6405 [facility] [address] [place] [address] Assigned Heart and Vascular Provider 05/28/23 Jelena David OD [address] [facility] [address] Ophthalmology 06/15/23 Pao Joseph, VJ Personal Advocate & Liaison (PAL) Nurse 08/01/23 11/07/23 Esha Grimm PA-C [address] [place] [address] Assigned PCP 07/16/23 Valery Veronica PA-C [address] [place] [address] 317195 Physician Pest Locator Dermatology 09/19/23 Rey Tay MD [address] [place] [address] 201205 Gastroenterology 09/20/23 Rocky Zepeda DO [address] [place] [address] 131665 Physician Gastroenterology 09/20/23 Philip Dumont MD [address] [place] [address] Physician Ophthalmology 09/22/23 Meredith Carrera PA-C [address] [place] [address] Assigned Gastroenterology Provider 11/01/23 Neil Kent MD [address] [address] Dermatology 11/02/23 [place] [address] [address] Neurological Surgery 12/26/23 Audrey Waite PA-C [address] [place] [address] Physician Pest Locator Dermatology 02/28/24 Valery Veronica PA-C 925304 [address], [place] [address] Physician Pest Locator Dermatology 04/10/24 Herminia Hatch MD [facility]5 [place], [place] 667[address] Assigned Rheumatology Provider 07/02/24 documented as of this encounter
--- OUTSIDE RECORDS SUMMARY | 2024-07-22 22:42 | XMS_ITS | Encounter Summary ---
Author Organization [place] Address [address] [place] [address] Care Team Providers Care Medical Director Name Role Phone iDana Desir [facility] Unavailable Rain Galaviz PA-C Unavailable Tavia Wyatt MD Unavailable Erica Farrell APRN NETWORK SERVICES PROJECT MANAGER Unavailable Rich Barrett MD Unavailable [phone] Neil Kent MD Unavailable Diana Desir [facility] Unavailable Livan Sharif MD Unavailable Catherine Cm MD Unavailable + Valery Veronica PA-C Unavailable [phone] Brea Quinn LINTER TENDER NETWORK SERVICES PROJECT MANAGER Unavailable [phone] Brea Quinn LINTER TENDER NETWORK SERVICES PROJECT MANAGER Unavailable Jose Francisco Johnson MD Unavailable Alfonso Renteria MD Unavailable [phone] Esha Grimm PA-C Primary Care Provider Lomeli, Radha E LINTER TENDER NETWORK SERVICES PROJECT MANAGER Unavailable [phone] Jelena David OD Unavailable Esha Grimm PA-C Unavailable [phone] Valery Veronica PA-C Unavailable [phone] Rey Tay MD Unavailable Rocky Zepeda DO Unavailable Philip Dumont MD Unavailable [phone] Meredith Carrera PA-C Unavailable [phone] Neil Kent MD Unavailable Juan Pablo Emmanuel MD Unavailable [phone] Audrey Waite PA-C Unavailable [phone] Valery Veronica PA-C Unavailable [phone] Herminia Hatch MD Unavailable Encounter Details Date Type Department Care Team (Late st Contact Info) Description 11/21/2023 [facility] Medical Advice [facility] Gastroenterology Clinic [address] [place] [address] Sofia Alcantar Social History Tobacco [...] PHQ-2 Score 0 10/25/2023 [facility] - Occupational Stress Questionnaire Answer [...] exercise at this level? 30 min 03/10/2023 [place] Depression Scale Answer Date Recorded [place] Depression Score 5 01/14/2021 Last EPDS Self [...] PM CDT Legal Sex Female 4:13 AM PRESIDENT & FOUNDER Gender Identity Female 03/02/2021 5:45 PM CDT Sexual Orientation Straight 02/28/2020 12 :51 AM CDT documented as of this encounter Plan of Treatment Upcoming Encounters Date Type Department Care Team (Late st Contact Info) Description 10/23/2024 9:30 AM CDT Office Visit [facility] Neurology [address], [address] [place] [address] [place] [address] [place] [address] 238057 Johnny Penn MD 9114 [place], [place] [address] 11/28/2024 7:45 AM CDT Virtual Visit [facility] Gastroenterology Clinic [address] 4th [place] [address] Meredith Carrera PA-C [address] [place] [address] documented as of this encounter Visit Diagnoses Not on filedocumented in this encounter Additional Health Concerns Infection Onset Date Last Indicated Resolved Time Rule Out COVID-19 12/26/2023 12/26/2023 12/26/2023 9:50 AM CDT Rule Out COVID-19 04/09/2024 04/09/2024 04/10/2024 6:48 PM CDT Assessment Noted Time PHQ-9 Depression Total Score: 4 06/20/20 8:40 AM PRESIDENT & FOUNDER documented as of this encounter Care Teams Medical Director Relationship Specialty Start Date End Date Esha Grimm PA-C [address] [place] [address] PCP - General Family Medicine 05/04/23 Diana Desir, [facility] [address] [facility] [place] [address] Pharmacist Pharmacist 04/17/21 Rain Galaviz PA-C [address] [place] [address] [address] [place] [address] Physician Burn Table Operator Dermatology 04/28/21 Tavia Wyatt MD [address] [place] [address] [address] [place] [address] Dermatology 07/14/21 Erica Farrell APRN NETWORK SERVICES PROJECT MANAGER 6405 [facility] [place] [address] Nurse Practitioner Cardiovascular Disease 09/09/21 Rich Barrett MD 6 [facility] 9A [place] [address] Physician Ophthalmology 01/21/22 Neil Kent MD 500 [place], [place] 140915 Dermatology 02/24/22 Diana Desir, [facility] 3033 [place] [address] Assigned MTM Pharmacist 04/07/22 Livan Sharif MD [address] [facility]00 [place] 201[address] Cardiovascular Disease 05/14/22 Catherine Cm MD [address] [facility] [place] [address] Cardiovascular Disease 07/21/22 Valery Veronica, PA-C 909 [place], [place] 8[address]185 Physician Burn Table Operator Dermatology 07/21/22 Brea Quinn APRN NETWORK SERVICES PROJECT MANAGER 500 [place] [address] Nurse Practitioner Dermatology 09/21/22 Brea Quinn APRN NETWORK SERVICES PROJECT MANAGER [address] [facility] [place] [place] [address] Assigned Surgical Provider 10/09/22 05/01/24 [place] [address] [place] [address] Assigned Musculoskeletal Provider 10/09/22 05/01/24 Alfonso Renteria MD [address] [facility] [address] 200 [place] [address] Assigned Neuroscience Provider 04/02/23 Radha Lomeli APRN NETWORK SERVICES PROJECT MANAGER 6405 [facility] [address] [place] [address] Assigned Heart and Vascular Provider 05/28/23 Jelena David OD [address] [facility] [address] Ophthalmology 06/15/23 Esha Grimm PA-C [address] [place] [address] Assigned PCP 07/16/23 Valery Veronica PA-C [address] [place] [address] 066895 Physician Burn Table Operator Dermatology 09/19/23 Rey Tay MD 9 [place], [place] 6937[address] Gastroenterology 09/20/23 Rocky Zepeda DO [address] [place] [address] 502335 Physician Gastroenterology 09/20/23 Philip Dumont MD [address] [place] [address] 746285 Physician Ophthalmology 09/22/23 Meredith Carrera PA-C 909 [place] [address] Assigned Gastroenterology Provider 11/01/23 Neil Kent MD [address] [place] [address] Dermatology 11/02/23 [place] [address] [address] Neurological Surgery 12/26/23 Audrey Waite PA-C 500 [place] [address] Physician Burn Table Operator Dermatology 02/28/24 Valery Veronica PA-C [address] [place] [address] Physician Burn Table Operator Dermatology 04/10/24 Herminia Hatch MD [facility]5 [place] [address] Assigned Rheumatology Provider 07/02/24 documented as of this encounter
--- OUTSIDE RECORDS SUMMARY | 2024-07-22 22:42 | XMS_ITS | Encounter Summary ---
Author Organization [place] Address [address] [place] [address] Care Team Providers Care Cmo Name Role Phone Diana Desir [facility] Unavailable Rain Galaviz PA-C Unavailable [phone] Tavia Wyatt MD Unavailable Erica Farrell APRN MACHINE MAINTENANCE SUPERVISOR Unavailable Rich Barrett MD Unavailable [phone] Neil Kent MD Unavailable Diana Desir [facility] Unavailable Livan Sharif MD Unavailable Catherine Cm MD Unavailable + Valery Veronica PA-C Unavailable Brea Quinn RETAIL TEAM LEADER MACHINE MAINTENANCE SUPERVISOR Unavailable Brea Quinn RETAIL TEAM LEADER MACHINE MAINTENANCE SUPERVISOR Unavailable Jose Francisco Johnson MD Unavailable Alfonso Renteria MD Unavailable [phone] Esha Grimm PA-C Primary Care Provider Radha Lomeli APRN MACHINE MAINTENANCE SUPERVISOR Unavailable Jelena David OD Unavailable Esha Grimm PA-C Unavailable [phone] Valery Veronica PA-C Unavailable [phone] Rey Tay MD Unavailable Rocky Zepeda DO Unavailable Philip Dumont MD Unavailable [phone] Meredith Carrera PA-C Unavailable [phone] Neil Kent MD Unavailable Juan Pablo Emmanuel MD Unavailable [phone] Audrey Waite PA-C Unavailable [phone] Valery Veronica PA-C Unavailable Herminia Hatch MD Unavailable Encounter Details Date Type Department Care Team (Late st Contact Info) Description 03/05/2024 [facility] Medical Advice [facility] Gastroenterology Clinic [address] [place] [address] Rebecca Moctezuma Social History Tobacco [...] Answer Date Recorded PHQ-2 Score 1 02/07/2024 [facility] - Occupational Stress Questionnaire Answer [...] exercise at this level? 30 min 03/10/2023 [place] Depression Scale Answer Date Recorded [place] Depression Score 5 01/14/2021 Last EPDS Self [...] PM CDT Legal Sex Female 4:13 AM CRACKER SPRAYER Gender Identity Female 03/02/2021 5:45 PM CDT Sexual Orientation Straight 02/28/2020 12 :51 AM CDT documented as of this encounter Plan of Treatment Upcoming Encounters Date Type Department Care Team (Late st Contact Info) Description 10/23/2024 9:30 AM CDT Office Visit [facility] Neurology [address], [address] [place] [address] [place] [address] [place], [place] [address] Johnny Penn MD 0699 [place], [place] 147005 11/28/2024 7:45 AM CDT Virtual Visit [facility] Gastroenterology Clinic [address] 4th [place] [address] Meredith Carrera PA-C [address] [place] [address] documented as of this encounter Visit Diagnoses Not on filedocumented in this encounter Additional Health Concerns Infection Onset Date Last Indicated Resolved Time Rule Out COVID-19 04/09/2024 04/09/2024 04/10/2024 6:48 PM CDT Assessment Noted Time PHQ-9 Depression Total Score: 3 02/07/20 24 9:33 AM CDT documented as of this encounter Care Teams Cmo Relationship Specialty Start Date End Date Esha Grimm PA-C [address] [place] [address] PCP - General Family Medicine 05/04/23 Diana Desir, [facility] [address] [place] [address] Pharmacist Pharmacist 04/17/21 Rain Galaviz PA-C [address] [place] [address] [address] [facility] [place] [address] Physician Conveyor Operator Dermatology 04/28/21 Tavia Wyatt MD [address] [place] [address] [address] [place] [address] Dermatology 07/14/21 Erica Farrell APRN MACHINE MAINTENANCE SUPERVISOR 6405 [facility] [address] [place] [address] Nurse Practitioner Cardiovascular Disease 09/09/21 Rich Barrett MD 516 [facility], CLINIC 9A [place], [place] [address] Physician Ophthalmology 01/21/22 Neil Kent MD 500 [place] [address] Dermatology 02/24/22 Diana Desir, [facility] 3033 [place] [address] Assigned MTM Pharmacist 04/07/22 Livan Sharif MD [address] [facility] [place] [place] [address]85 Cardiovascular Disease 05/14/22 Catherine Cm MD [address] [place] [address] [place] 232175 Cardiovascular Disease 07/21/22 Valery Veronica, PA-C 909 [place] [address] Physician Conveyor Operator Dermatology 07/21/22 Brea Quinn APRN MACHINE MAINTENANCE SUPERVISOR 500 [place] [address] Nurse Practitioner Dermatology 09/21/22 Brea Quinn APRN MACHINE MAINTENANCE SUPERVISOR 6401 [place] [address] Assigned Surgical Provider 10/09/22 05/01/24 [place] [address] [place] [address] Assigned Musculoskeletal Provider 10/09/22 05/01/24 Alfonso Renteria MD [address] [facility] D[address] 200 [place] [address] Assigned Neuroscience Provider 04/02/23 Radha Lomeli APRN MACHINE MAINTENANCE SUPERVISOR [address] [place], [place] 485[address] Assigned Heart and Vascular Provider 05/28/23 Jelena David OD [address] [facility] [place] [address] MD Ophthalmology 06/15/23 Esha Grimm PA-C [address] [place] [phone] Assigned PCP 07/16/23 Valery Veronica PA-C [address] [place] [address] 471035 Physician Conveyor Operator Dermatology 09/19/23 Rey Tay MD [address] [place] [address] 737985 Gastroenterology 09/20/23 Rocky Zepeda DO [address] [place] [address] 730865 Physician Gastroenterology 09/20/23 Philip Dumont MD [address] [place] [address] 084305 Physician Ophthalmology 09/22/23 Meredith Carrera PA-C [address] [place] [address] 439138 [phone] Assigned Gastroenterology Provider 11/01/23 Neil Kent MD [address] [address] Dermatology 11/02/23 [place] [address] [address] Neurological Surgery 12/26/23 Audrey Waite PA-C 500 [place] [address] Physician Conveyor Operator Dermatology 02/28/24 Valery Veronica PA-C [address] [place] [address] Physician Conveyor Operator Dermatology 04/10/24 Herminia Hatch MD [facility]5 [place], [place] [address]16[address] Assigned Rheumatology Provider 07/02/24 documented as of this encounter
--- OUTSIDE RECORDS SUMMARY | 2024-07-22 22:42 | XMS_ITS | Encounter Summary ---
Author Organization [place] Address [address] [place] [address] Care Team Providers Care Gas Maker Helper Name Role Phone Diana Desir [facility] Unavailable Rain Galaviz PA-C Unavailable Tavia Wyatt MD Unavailable Erica Farrell APRN GUEST SERVICES Unavailable Rich Barrett MD Unavailable [phone] Neil [place] MD Unavailable Diana Desir [facility] Unavailable [phone] Livan Sharif MD Unavailable Catherine Cm MD Unavailable + Valery Veronica PA-C Unavailable Brea Quinn RECOVERY OPERATOR HELPER GUEST SERVICES Unavailable Brea Quinn RECOVERY OPERATOR HELPER GUEST SERVICES Unavailable Jose Francisco Johnson MD Unavailable Alfonso Renteria MD Unavailable [phone] Esha Grimm PA-C Primary Care Provider Lomeli, Radha E RECOVERY OPERATOR HELPER GUEST SERVICES Unavailable [phone] Jelena David OD Unavailable Esha Grimm PA-C Unavailable [phone] Valery Veronica PA-C Unavailable [phone] Rey Tay MD Unavailable Rocky Zepeda DO Unavailable Philip Dumont MD Unavailable [phone] Meredith Carrera PA-C Unavailable [phone] Neil [place] MD Unavailable Juan Pablo Emmanuel MD Unavailable [phone] Audrey Waite PA-C Unavailable [phone] Valery Veronica PA-C Unavailable Herminia Hatch MD Unavailable Encounter Details Date Type Department Care Team (Late st Contact Info) Description 11/21/2023 [facility] Medical Advice [facility] Gastroenterology Clinic [address] [place] [address] Sofia Alcantar Social History Tobacco [...] Score 0 10/25/2023 [facility] - Occupational Stress Questionnaire Answer [...] at this level? 30 min 03/10/2023 [place] Depression Scale Answer Date Recorded [place] Depression Score 5 01/14/2021 Last EPDS Self [...] PM CDT Legal Sex Female 4:13 AM COOKING INSTRUCTOR Gender Identity Female 03/02/2021 5:45 PM CDT Sexual Orientation Straight 02/28/2020 12 :51 AM CDT documented as of this encounter Plan of Treatment Upcoming Encounters Date Type Department Care Team (Late st Contact Info) Description 10/23/2024 9:30 AM CDT Office Visit [facility] Neurology [address], [address] [place] [address] [place] [address] [place] [address] 219537 Johnny Penn MD 1160 [place], [place] 543565 11/28/2024 7:45 AM CDT Virtual Visit [facility] Gastroenterology Clinic [address] 4th [place] [address] Meredith Carrera PA-C [address] [place] [address] documented as of this encounter Visit Diagnoses Not on filedocumented in this encounter Additional Health Concerns Infection Onset Date Last Indicated Resolved Time Rule Out COVID-19 12/26/2023 12/26/2023 12/26/2023 9:50 AM CDT Rule Out COVID-19 04/09/2024 04/09/2024 04/10/2024 6:48 PM CDT Assessment Noted Time PHQ-9 Depression Total Score: 4 06/20/20 8:40 AM COOKING INSTRUCTOR documented as of this encounter Care Teams Gas Maker Helper Relationship Specialty Start Date End Date Esha Grimm PA-C [address] [place] [address] PCP - General Family Medicine 05/04/23 Diana Desir, [facility] [address] [facility] [place] [address] Pharmacist Pharmacist 04/17/21 Rain Galaviz PA-C [address] [place] [address] [address] 250 [place] [address] Physician Freight Hustler Dermatology 04/28/21 Tavia Wyatt MD [address] [place] [address] [address] 250 [place] [address] Dermatology 07/14/21 Erica Farrell APRN GUEST SERVICES 6405 [facility] [place] [address] Nurse Practitioner Cardiovascular Disease 09/09/21 Rich Barrett MD 6 [facility] 9A [place] [address] Physician Ophthalmology 01/21/22 Neil Kent MD 500 [place], [place] 6[address]25 Dermatology 02/24/22 Diana Desir, [facility] 3033 [place] [address] Assigned MTM Pharmacist 04/07/22 Livan Sharif MD [address] [facility]00 [place] [address] Cardiovascular Disease 05/14/22 Catherine Cm MD [address] [facility] [place] [address] Cardiovascular Disease 07/21/22 Valery Veronica, PA-C 909 [place], [place] 4325[address] Physician Freight Hustler Dermatology 07/21/22 Brea Quinn APRN GUEST SERVICES 500 [place] [address] Nurse Practitioner Dermatology 09/21/22 Brea Quinn APRN GUEST SERVICES 6401 [facility] [place] 338822 Assigned Surgical Provider 10/09/22 05/01/24 [place] [address] [place] [address] Assigned Musculoskeletal Provider 10/09/22 05/01/24 Alfonso Renteria MD [address] [facility] [address] 200 [place] [address] Assigned Neuroscience Provider 04/02/23 Radha Lomeli APRN GUEST SERVICES 6405 [facility] [address] [place] [address] Assigned Heart and Vascular Provider 05/28/23 Jelena David OD [address] [facility] [address] Ophthalmology 06/15/23 Esha Grimm PA-C [address] [place] [address] Assigned PCP 07/16/23 Valery Veronica PA-C [address] [place] [address] 924515 Physician Freight Hustler Dermatology 09/19/23 Rey Tay MD 9 [place], [place] 8[address]365 Gastroenterology 09/20/23 Rocky Zepeda DO [address] [place] [address]35 Physician Gastroenterology 09/20/23 Philip Dumont MD [address] [place] [address] 325285 Physician Ophthalmology 09/22/23 Meredith Carrera PA-C 909 [place] [address] Assigned Gastroenterology Provider 11/01/23 Neil Kent MD [address] [place] [address] Dermatology 11/02/23 [place] [address] [address] [address] Neurological Surgery 12/26/23 Audrey Waite PA-C 500 [place] [address] Physician Freight Hustler Dermatology 02/28/24 Valery Veronica PA-C [address] [place] [address] Physician Freight Hustler Dermatology 04/10/24 Herminia Hatch MD [facility]5 [place] [address] Assigned Rheumatology Provider 07/02/24 documented as of this encounter
--- OUTSIDE RECORDS SUMMARY | 2024-07-22 22:42 | XMS_ITS | Encounter Summary ---
Author Organization [place] Address [address] [place] [address] Care Team Providers Care Stone Finisher Name Role Phone Diana Desir [facility] Unavailable Rain Galaviz PA-C Unavailable Tavia Wyatt MD Unavailable Erica Farrell APRN SENIOR POWER SCHEDULER Unavailable Rich Barrett MD Unavailable [phone] Neil Kent MD Unavailable Diana Desir [facility] Unavailable Livan Sharif MD Unavailable Catherine Cm MD Unavailable + Valery Veronica PA-C Unavailable Brea Quinn TEST ENG SENIOR POWER SCHEDULER Unavailable [phone] Brea Quinn TEST ENG SENIOR POWER SCHEDULER Unavailable Jose Francisco Johnson MD Unavailable Alfonso Renteria MD Unavailable [phone] Esha Grimm PA-C Primary Care Provider Radha Lomeli APRN SENIOR POWER SCHEDULER Unavailable Jelena David OD Unavailable [phone] Pao Joseph RN Unavailable Unavailable Esha Grimm PA-C Unavailable [phone] Valery Veronica PA-C Unavailable [phone] Rey Tay MD Unavailable Rocky Zepeda DO Unavailable Philip Dumont MD Unavailable [phone] Meredith Carrera PA-C Unavailable [phone] Neil Kent MD Unavailable Juan Pablo Emmanuel MD Unavailable [phone] Audrey Waite PA-C Unavailable [phone] Valery Veronica PA-C Unavailable Herminia Hatch MD Unavailable Encounter Details Date Type Department Care Team (Late st Contact Info) Description 10/24/2023 [facility] Medical Advice [facility] Gastroenterology Clinic [address] [address] Kenneth Denson Social History Tobacco [...] week 03/10/2023 How often do you attend [facility] or anabaptism services? 1 to 4 [...] Answer Date Recorded PHQ-2 Score 0 10/25/2023 [facility] [place] Occupat ional Health - Occupational Stress [...] exercise at this level? 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 AM NUT ROASTER Gender Identity Female 03/02/2021 5:45 PM CDT Sexual Orientation Straight 02/28/2020 12 :51 AM CDT documented as of this encounter Plan of Treatment Upcoming Encounters Date Type Department Care Team (Late st Contact Info) Description 10/23/2024 9:30 AM CDT Office Visit [facility] Neurology [address], [address] [place] [address] [place] [address] [place] 649387 Johnny Penn MD [address] [place] 807145 11/28/2024 7:45 AM CDT Virtual Visit [facility] Gastroenterology Clinic [address] 4th [place] [address] Meredith Carrera PAUcheC 909 [place] [address] documented as of this encounter Visit Diagnoses Not on filedocumented in this encounter Additional Health Concerns Infection Onset Date Last Indicated Resolved Time Rule Out COVID-19 12/26/2023 12/26/2023 12/26/2023 9:50 AM CDT Rule Out COVID-19 04/09/2024 04/09/2024 04/10/2024 6:48 PM CDT Assessment Noted Time PHQ-9 Depression Total Score: 4 06/20/20 8:40 AM NUT ROASTER documented as of this encounter Care Teams Stone Finisher Relationship Specialty Start Date End Date Esha Grimm PA-C [address] [place] [address] PCP - General Family Medicine 05/04/23 Diana Desir, [facility] 3033 [place] [address] Pharmacist Pharmacist 04/17/21 Rain Galaviz PA-C [address] [place] [address] [address] [place] [address] Physician Trainmaster Dermatology 04/28/21 Tavia Wyatt MD [address] [place] [address] [address] [place] [address] Dermatology 07/14/21 Erica Farrell APRN SENIOR POWER SCHEDULER 6405 [facility] [address] [place] [address] Nurse Practitioner Cardiovascular Disease 09/09/21 Rich Barrett MD [address], [place] 14[address] Physician Ophthalmology 01/21/22 Neil Kent MD 500 [place], [place] 549685 Dermatology 02/24/22 Diana Desir, [facility] 3033 [place] [address] Assigned MTM Pharmacist 04/07/22 Livan Sharif MD [address] [address] Cardiovascular Disease 05/14/22 Catherine Cm MD [address] 643765 Cardiovascular Disease 07/21/22 Valery Veronica, PA-C 909 [place], [place] 7833[address] Physician Trainmaster Dermatology 07/21/22 Brea Quinn APRN SENIOR POWER SCHEDULER 500 [place] [address] Nurse Practitioner Dermatology 09/21/22 Brea Quinn APRN SENIOR POWER SCHEDULER [address] [place] [address] [place] 034952 Assigned Surgical Provider 10/09/22 05/01/24 [place] [address] 569167 Assigned Musculoskeletal Provider 10/09/22 05/01/24 Alfonso Renteria MD [address] [place] [address] Assigned Neuroscience Provider 04/02/23 Radha Lomeli APRN SENIOR POWER SCHEDULER 6405 [facility] [address] [place] [address] Assigned Heart and Vascular Provider 05/28/23 Jelena David OD [address] [facility] [place] [address] Ophthalmology 06/15/23 Pao Joseph, VJ Personal Advocate & Liaison (PAL) Nurse 08/01/23 11/07/23 Esha Grimm PA-C [address] [place] [address] Assigned PCP 07/16/23 Valery Veronica PA-C [address] [place], [place] 687[address] Physician Trainmaster Dermatology 09/19/23 Rey Tay MD [address] [place] [address] 945175 Gastroenterology 09/20/23 Rocky Zepeda DO [address] [place] [address] 409195 Physician Gastroenterology 09/20/23 Philip Dumont MD [address] [place] [address] Physician Ophthalmology 09/22/23 Meredith Carrera PA-C [address] [place] [address] Assigned Gastroenterology Provider 11/01/23 Neil Kent MD [address] [address] Dermatology 11/02/23 [place] [address] [address] Neurological Surgery 12/26/23 Audrey Waite PA-C [address] [place] [address] Physician Trainmaster Dermatology 02/28/24 Valery Veronica PA-C 990914 [place], [place] [address] Physician Trainmaster Dermatology 04/10/24 Herminia Hatch MD [facility]5 [place], [place] 34[address] Assigned Rheumatology Provider 07/02/24 documented as of this encounter
--- OUTSIDE RECORDS SUMMARY | 2024-07-22 22:42 | XMS_ITS | Encounter Summary ---
Author Organization [facility] Address [address] [place] [address] Care Team Providers Care Venetian Blind Tape Cutter Name Role Phone Diana Desir [facility] Unavailable Rain Galaviz PA-C Unavailable Tavia Wyatt MD Unavailable Erica Farrell APRN BOILER MECHANIC Unavailable Rich Barrett MD Unavailable [phone] Neil [place] MD Unavailable Diana Desir [facility] Unavailable Livan hSarif MD Unavailable Catherine Cm MD Unavailable + Valery Veronica PA-C Unavailable Brea Quinn FRONT CLERK BOILER MECHANIC Unavailable Brea Quinn FRONT CLERK BOILER MECHANIC Unavailable Jose Francisco Johnson MD Unavailable Alfonso Renteria MD Unavailable [phone] Esha Grimm PA-C Primary Care Provider Radha Lomeli APRN BOILER MECHANIC Unavailable Jelena David OD Unavailable Pao Joseph RN Unavailable Unavailable Esha Grimm PA-C Unavailable [phone] Valery Veronica PA-C Unavailable [phone] Rey Tay MD Unavailable Rocky Zepeda DO Unavailable Philip Dumont MD Unavailable [phone] Meredith Carrera PA-C Unavailable Neil Kent MD Unavailable Juan Pablo Emmanuel MD Unavailable Audrey Waite PA-C Unavailable [phone] Valery Veronica PA-C Unavailable Herminia Hatch MD Unavailable Encounter Details Date Type Department Care Team (Late st Contact Info) Description 10/25/2023 [facility] Medical Advice [facility] [address] [address] [place], RD [address] [place] [address] Social History Tobacco Use Types [...] week 03/10/2023 How often do you attend [facility] or confucianism services? 1 to 4 times [...] Answer Date Recorded PHQ-2 Score 0 10/25/2023 [facility] of Occupat ional [...] exercise at this level? 30 min 03/10/2023 [place] Depression Scale Answer Date Recorded [...] CDT Legal Sex Female 4:13 AM MANAGER QUANTITATIVE Gender Identity Female 03/02/2021 5:45 PM CDT Sexual Orientation Straight 02/28/2020 12 :51 AM CDT documented as of this encounter Plan of Treatment Upcoming Encounters Date Type Department Care Team (Late st Contact Info) Description 10/23/2024 9:30 AM CDT Office Visit [facility] Neurology [address], [address] [place] [address] [place] [address] [place] [address] Johnny Penn MD [address] [place] [id number] 11/28/2024 7:45 AM CDT Virtual Visit [facility] [address] 4th [place] [address] Meredith Carrera PA-C [address] [place] [address] documented as of this encounter Visit Diagnoses Not on filedocumented in this encounter Additional Health Concerns Infection Onset Date Last Indicated Resolved Time Rule Out COVID-19 12/26/2023 12/26/2023 12/26/2023 9:50 AM CDT Rule Out COVID-19 04/09/2024 04/09/2024 04/10/2024 6:48 PM CDT Assessment Noted Time PHQ-9 Depression Total Score: 4 06/20/20 23 8:40 AM MANAGER QUANTITATIVE documented as of this encounter Care Teams Venetian Blind Tape Cutter Relationship Specialty Start Date End Date Esha Grimm PA-C [address] [place] [phone] PCP - General Family Medicine 05/04/23 Diana Desir, [facility] [address] [place], [place] [address]236 Pharmacist Pharmacist 04/17/21 Rain Galaviz PA-C [address] [place] [address] [address] [facility] [address] Physician Tank House Operator Helper Dermatology 04/28/21 Tavia Wyatt MD [address] [place] [address] [place] [phone] Dermatology 07/14/21 Erica Farrell APRN BOILER MECHANIC 6405 [facility] [address] [place] [address] Nurse Practitioner Cardiovascular Disease 09/09/21 Rich Barrett MD 516 [facility], [facility] 9A [place], [place] 0525[address] Physician Ophthalmology 01/21/22 Neil Kent MD 500 [place], [place] 758885 Dermatology 02/24/22 Diana Desir, [facility] 3033 [place], [place] 066876 Assigned [place] Pharmacist 04/07/22 Livan Sharif MD [address] [facility] [address] [place] [address]505 Cardiovascular Disease 05/14/22 Catherine Cm MD 6405 [facility] [address] [place] 5971500 [place] [address] Cardiovascular Disease 07/21/22 Valery Veronica, PA-C 909 [place], [place] 187475 Physician Tank House Operator Helper Dermatology 07/21/22 Brea Quinn APRN BOILER MECHANIC 500 [place], [place] 404805 Nurse Practitioner Dermatology 09/21/22 Brea Quinn APRN BOILER MECHANIC 6401 [facility] [place] 694252 Assigned Surgical Provider 10/09/22 05/01/24 [place] [address] [address] [facility] 300 [place] [address] Assigned Musculoskeletal Provider 10/09/22 05/01/24 Alfonso Renteria MD [address] [facility] 200 [place], [place] 453516 Assigned Neuroscience Provider 04/02/23 Radha Lomeli, [place]RL[place] BOILER MECHANIC 6405 [facility] [place], [place] 461785 Assigned Heart and Vascular Provider 05/28/23 Jelena David OD [address] [facility] [place] [address] Ophthalmology 06/15/23 Pao Joseph, VJ Personal Advocate & Liaison (PAL) Nurse 08/01/23 11/07/23 Esha Grimm PA-C [address] [place] [address] Assigned PCP 07/16/23 Valery Veronica PA-C [address] [place] [address] 337155 Physician Tank House Operator Helper Dermatology 09/19/23 Rey aTy MD [address] [place] [address] 176515 Gastroenterology 09/20/23 Rocky Zepeda DO [address] [place] [address] 766565 Physician Gastroenterology 09/20/23 Philip Dumont MD 516 [place] [address] Physician Ophthalmology 09/22/23 Meredith Carrera PA-C [address] [place] [address] 398415 Assigned Gastroenterology Provider 11/01/23 Neil Kent MD [address] 839060 MD Dermatology 11/02/23 [place] [address] 980427 Neurological Surgery 12/26/23 Audrey Waite PA-C 500 [place], [place] 120565 Physician Tank House Operator Helper Dermatology 02/28/24 Valery Veronica PA-C [id number] 99 [place] [address] Physician Tank House Operator Helper Dermatology 04/10/24 Herminia Hatch MD [facility]5 [place] [address] Assigned Rheumatology Provider 07/02/24 documented as of this encounter
--- OUTSIDE RECORDS SUMMARY | 2024-07-22 22:42 | XMS_ITS | Encounter Summary ---
Author Organization [facility] Address [address] [place] [address] Care Team Providers Care Coremaking Supervisor Name Role Phone Diana Desir [facility] Unavailable Rain Galaviz PA-C Unavailable Tavia Wyatt MD Unavailable Erica Farrell APRN METER TECHNICIAN Unavailable Rich Barrett MD Unavailable [phone] Neil Kent MD Unavailable Diana Desir [facility] Unavailable Livan Sharif MD Unavailable Catherine Cm MD Unavailable + Valery Veronica PA-C Unavailable Brea Quinn HIDE DYER METER TECHNICIAN Unavailable Brea Quinn HIDE DYER METER TECHNICIAN Unavailable Jose Francisco Johnson MD Unavailable Alfonso Renteria MD Unavailable [phone] Esha Grimm PA-C Primary Care Provider Radha Lomeli APRN METER TECHNICIAN Unavailable Jelena David OD Unavailable Pao Joseph RN Unavailable Unavailable Esha Grimm PA-C Unavailable [phone] Valery Veronica PA-C Unavailable [phone] Rey Tay MD Unavailable Rocky Zepeda DO Unavailable Philip Dumont MD Unavailable [phone] Meredtih Carrera PA-C Unavailable [phone] Neil Kent MD Unavailable Juan Pablo Emmanuel MD Unavailable [phone] Audrey Waite PA-C Unavailable [phone] Valery Veronica PA-C Unavailable [phone] Herminia Hatch MD Unavailable Encounter Details Date Type Department Care Team (Late st Contact Info) Description 10/25/2023 [facility] [place] Medical Advice [facility] Gastroenterology [facility] [address] [address] [place] Social History Tobacco [...] week 03/10/2023 [facility]? 1 to 4 times [...] Answer Date Recorded PHQ-2 Score 0 10/25/2023 [facility] of Occupat ional Health - [...] exercise at this level? 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 Gender Identity Female 03/02/2021 5:45 PM CDT Sexual Orientation Straight 02/28/2020 12 :51 AM CDT documented as of this encounter Plan of Treatment Upcoming Encounters Date Type Department Care Team (Late st Contact Info) Description 10/23/2024 9:30 AM CDT Office Visit [facility] Neurology [address], [address] [place] [address] [place] [address] [place] [address] Johnny Penn MD [address] [place] [id number] 11/28/2024 7:45 AM CDT Virtual Visit [facility] Gastroenterology [facility] [address] 4th [place] [address] Meredith Carrera PAUcheC 909 [place] [address] documented as of this encounter Visit Diagnoses Not on filedocumented in this encounter Additional Health Concerns Infection Onset Date Last Indicated Resolved Time Rule Out COVID-19 12/26/2023 12/26/2023 12/26/2023 9:50 AM CDT Rule Out COVID-19 04/09/2024 04/09/2024 04/10/2024 6:48 PM CDT Assessment Noted Time PHQ-9 Depression Total Score: 4 06/20/20 8:40 AM BRAIDING MACHINE TENDER documented as of this encounter Care Teams Coremaking Supervisor Relationship Specialty Start Date End Date sEha Grimm PA-C [address] [place] [address] PCP - General Family Medicine 05/04/23 Diana Desir, [facility] 3033 [place] [address] Pharmacist Pharmacist 04/17/21 Rain Galaviz PA-C [address] [place] [address] [address] [place] [address] Physician Auto Fleet Maintenance Manager Dermatology 04/28/21 Tavia Wyatt MD [address] [place] [address] [address] [place] [address] Dermatology 07/14/21 Erica Farrell APRN METER TECHNICIAN [address] [place] 3372500 [place] [address] Nurse Practitioner Cardiovascular Disease 09/09/21 Rich Barrett MD [address] [place] 14[address] Physician Ophthalmology 01/21/22 Neil [facility] MD 500 [place], [place] 955845 Dermatology 02/24/22 Diana Desir, [facility] 3033 [place] [address] Assigned MTM Pharmacist 04/07/22 Livan Sharif MD [address] 597145 Cardiovascular Disease 05/14/22 Catherine Cm MD [address] 048015 Cardiovascular Disease 07/21/22 Valery Veronica, PA-C 909 [place], [place] 993465 Physician Auto Fleet Maintenance Manager Dermatology 07/21/22 Brea Quinn APRN METER TECHNICIAN 500 [place] [address] Nurse Practitioner Dermatology 09/21/22 Brea Quinn APRN METER TECHNICIAN [address] [place] [address] [facility] [place] 574262 Assigned Surgical Provider 10/09/22 05/01/24 [place] [address] 709157 Assigned Musculoskeletal Provider 10/09/22 05/01/24 Alfonso Renteria MD [address] 200 [place] [address] Assigned Neuroscience Provider 04/02/23 Radha Lomeli APRN METER TECHNICIAN 6405 [facility] [address] [place] [address] Assigned Heart and Vascular Provider 05/28/23 Jelena David OD [address] [facility] [place] [address] Ophthalmology 06/15/23 Pao Joseph, VJ Personal Advocate & Liaison (PAL) Nurse 08/01/23 11/07/23 Esha Grimm PA-C [address] [place] [phone] Assigned PCP 07/16/23 Valery Veronica PA-C [address] [place] [address] 153515 Physician Auto Fleet Maintenance Manager Dermatology 09/19/23 Rey Tay MD [address] [place] [address] 474315 Gastroenterology 09/20/23 Rocky Zepeda DO [address] [place] [address] 290385 Physician Gastroenterology 09/20/23 Philip Dumont MD [address] [place] [address] Physician Ophthalmology 09/22/23 Meredith Carrera PA-C [address] [place] [address] Assigned Gastroenterology Provider 11/01/23 Neil Kent MD [address] [address] Dermatology 11/02/23 [place] [address] [address] [address] Neurological Surgery 12/26/23 Audrey [place] PA-C [address] [place] [address] Physician Auto Fleet Maintenance Manager Dermatology 02/28/24 Valery Veronica PA-C 238768 [place] [address] Physician Auto Fleet Maintenance Manager Dermatology 04/10/24 Herminia Hatch MD [facility]5 [place], [place] 438[address] Assigned Rheumatology Provider 07/02/24 documented as of this encounter
--- OUTSIDE RECORDS SUMMARY | 2024-07-22 22:42 | XMS_ITS | Encounter Summary ---
Author Organization [facility] Address [address] [place] [address] Care Team Providers Care Nuclear Radiologist Name Role Phone Diana Desir [facility] Unavailable Rain Galaviz PA-C Unavailable [phone] Tavia Wyatt MD Unavailable Erica Farrell APRN STAVE BLOCK SPLITTER Unavailable Rich Barrett MD Unavailable [phone] Neil Kent MD Unavailable Diana Desir [facility] Unavailable Livan Sharif MD Unavailable Catherine Cm MD Unavailable + Valery Veronica PA-C Unavailable Brea Quinn LAW INSTRUCTOR STAVE BLOCK SPLITTER Unavailable [phone] Brea Quinn LAW INSTRUCTOR STAVE BLOCK SPLITTER Unavailable Jose Francisco Johnson MD Unavailable Alfonso Renteria MD Unavailable [phone] Esha Grimm PA-C Primary Care Provider [phone] Radha Lomeli APRN STAVE BLOCK SPLITTER Unavailable Jelena David OD Unavailable Esha Grimm PA-C Unavailable Valery Veronica PA-C Unavailable [phone] Rey Tay MD Unavailable Rocky Zepeda DO Unavailable Philip Dumont MD Unavailable [phone] Meredith Carrera PA-C Unavailable [phone] Neil Kent MD Unavailable Juan Pablo Emmanuel MD Unavailable Audrey Waite PA-C Unavailable [phone] Valery Veronica PA-C Unavailable Herminia Hatch MD Unavailable Encounter Details Date Type Department Care Team (Late st Contact Info) Description 02/01/2024 [facility] Medical Advice [facility] Neurology [address], [address] [place] [address] Macy Pinedo, RN Social History Tobacco [...] Date Recorded PHQ-2 Score 0 10/25/2023 [facility] of Occupat ional Health - Occupational [...] PM CDT Legal Sex Female 4:13 AM BLOCKMASON Gender Identity Female 03/02/2021 5:45 PM CDT Sexual Orientation Straight 02/28/2020 12 :51 AM CDT documented as of this encounter Plan of Treatment Upcoming Encounters Date Type Department Care Team (Late st Contact Info) Description 10/23/2024 9:30 AM CDT Office Visit [facility] Neurology [address], [address] [place] [address] [place] [address] [facility] [place] 000237 Johnny Penn MD 0585 [facility] [place] 546[address] 11/28/2024 7:45 AM CDT Virtual Visit [facility] Gastroenterology Clinic [address] 4th [place] [address] Meredith Carrera PA-C [address] [place], [place] [address] documented as of this encounter Visit Diagnoses Not on filedocumented in this encounter Additional Health Concerns Infection Onset Date Last Indicated Resolved Time Rule Out COVID-19 04/09/2024 04/09/2024 04/10/2024 6:48 PM CDT Assessment Noted Time PHQ-9 Depression Total Score: 4 06/20/20 23 8:40 AM BLOCKMASON documented as of this encounter Care Teams Nuclear Radiologist Relationship Specialty Start Date End Date Esha Grimm PA-C [address] [place] [address] PCP - General Family Medicine 05/04/23 Diana Desir, [facility] [address] [place] [address] Pharmacist Pharmacist 04/17/21 Rain Galaviz PA-C [address] [place] [address] [address] [place] [address] Physician Sandblaster Paint Sprayer Dermatology 04/28/21 Tavia Wyatt MD [address] [place] [address] [address] [place] [address] Dermatology 07/14/21 Erica Farrell APRN STAVE BLOCK SPLITTER 6405 [facility] [address] [place] 830245 Nurse Practitioner Cardiovascular Disease 09/09/21 Rich Barrett MD 516 [facility] 9A [place], [place] 281535 Physician Ophthalmology 01/21/22 Neil Kent MD 500 [place] [address] Dermatology 02/24/22 Diana Desir, [facility] 3033 [place] [address] Assigned MTM Pharmacist 04/07/22 Livan Sharif MD [address] [facility] [place] [address] Cardiovascular Disease 05/14/22 Catherine Cm MD [address] [place] [address] [place] 983855 Cardiovascular Disease 07/21/22 Valery Veronica, PAUcheC 909 [place], [place] 487525 Physician Sandblaster Paint Sprayer Dermatology 07/21/22 Brea Quinn APRN STAVE BLOCK SPLITTER 500 [place] [address] Nurse Practitioner Dermatology 09/21/22 Brea Quinn APRN STAVE BLOCK SPLITTER 6401 [place] [address] Assigned Surgical Provider 10/09/22 05/01/24 [place] [address] [place] [address] Assigned Musculoskeletal Provider 10/09/22 05/01/24 Alfonso Renteria MD [address] [facility] [address] 200 [place] [address] Assigned Neuroscience Provider 04/02/23 Lomeli Radha ARLENE Stovall STAVE BLOCK SPLITTER [address] [place], [place] 346575 Assigned Heart and Vascular Provider 05/28/23 Jelena David OD [address] [facility] [address] MD Ophthalmology 06/15/23 Esha Grimm PA-C [address] [place] [phone] Assigned PCP 07/16/23 Valery Veronica PA-C [address] [place] [address] 414405 Physician Sandblaster Paint Sprayer Dermatology 09/19/23 Rey Tay MD [address] [place] [address] 358035 Gastroenterology 09/20/23 Rocky Zepeda DO [address] [place] [address] 325275 Physician Gastroenterology 09/20/23 Philip Dumont MD [address] [place] [address] 668615 Physician Ophthalmology 09/22/23 Meredith Carrera PA-C [address] [place] [address] Assigned Gastroenterology Provider 11/01/23 Neil Kent MD [address] [address] Dermatology 11/02/23 [place] [address] [address] Neurological Surgery 12/26/23 Audrey Waite PA-C 500 [place] [address] Physician Sandblaster Paint Sprayer Dermatology 02/28/24 Valery Veronica PA-C 5[address]81 [address] [place] [address] Physician Sandblaster Paint Sprayer Dermatology 04/10/24 Herminia Hatch MD [facility] [place], [place] [address] Assigned Rheumatology Provider 07/02/24 documented as of this encounter
--- OUTSIDE RECORDS SUMMARY | 2024-07-22 22:42 | XMS_ITS | Encounter Summary ---
Author Organization [place] Address [address] [place] [address] Care Team Providers Care Plate Embosser Name Role Phone Diana Desir [facility] Unavailable Rain Galaviz PA-C Unavailable Tavia Wyatt MD Unavailable Erica Farrell APRN DYNAMOMETER TESTER Unavailable Rich Barrett MD Unavailable [phone] Neil Kent MD Unavailable Diana Desir [facility] Unavailable Livan Sharif MD Unavailable Catherine Cm MD Unavailable + Valery Veronica PA-C Unavailable Brea Quinn CORRECTIVE AND MANUAL ARTS THERAPIST DYNAMOMETER TESTER Unavailable [phone] Brea Quinn CORRECTIVE AND MANUAL ARTS THERAPIST DYNAMOMETER TESTER Unavailable Jose Francisco Johnson MD Unavailable Alfonso Renteria MD Unavailable [phone] Esha Grimm PA-C Primary Care Provider [phone] Lomeli, Radha E CORRECTIVE AND MANUAL ARTS THERAPIST DYNAMOMETER TESTER Unavailable [phone] Jelena David OD Unavailable Esha Grimm PA-C Unavailable [phone] Valery Veronica PA-C Unavailable [phone] Rey Tay MD Unavailable Rocky Zepeda DO Unavailable Philip Dumont MD Unavailable Meredith Carrera PA-C Unavailable [phone] Neil Kent MD Unavailable Juan Pablo Emmanuel MD Unavailable Audrey Waite PA-C Unavailable Valery Veronica PA-C Unavailable Herminia Hatch MD Unavailable Encounter Details Date Type Department Care Team (Late st Contact Info) Description 02/27/2024 MyC Medical Advice [facility] Spine and Neurosurgery [address] [place] [address] Ebony Cid APRN DYNAMOMETER TESTER [address] [place] [address] Social History Tobacco Use Types [...] often do you attend [facility] or [facility] services? 1 to 4 [...] Score 1 02/07/2024 [facility]ational [...] exercise at this level? 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 Gender Identity Female 03/02/2021 5:45 PM CDT Sexual Orientation Straight 02/28/2020 12 :51 AM CDT documented as of this encounter Plan of Treatment Upcoming Encounters Date Type Department Care Team (Late st Contact Info) Description 10/23/2024 9:30 AM CDT Office Visit [facility] Neurology [address] [place] [address] [place] [address] [place] [address] Johnny Penn MD [address] [place] [id number] 11/28/2024 7:45 AM CDT Virtual Visit [facility] Gastroenterology [facility] [address] [place] [address] Meredith Carrera PA-C 9[address] [place] [address] documented as of this encounter Visit Diagnoses Not on filedocumented in this encounter Additional Health Concerns Infection Onset Date Last Indicated Resolved Time Rule Out COVID-19 04/09/2024 04/09/2024 04/10/2024 6:48 PM CDT Assessment Noted Time PHQ-9 Depression Total Score: 3 02/07/20 24 9:33 AM CDT documented as of this encounter Care Teams Plate Embosser Relationship Specialty Start Date End Date Esha Grimm PA-C [address] [place] [address] PCP - General Family Medicine 05/04/23 [facility] [address] [place] [address] Pharmacist Pharmacist 04/17/21 Rain Galaviz PA-C [address] [place] [address] [address] [place] [address] Physician Plastic Maker Dermatology 04/28/21 Tavia Wyatt MD [address] [place] [address] [address] [place] [address] Dermatology 07/14/21 Erica Farrell APRN DYNAMOMETER TESTER [address] 5938500 [place] [address] Nurse Practitioner Cardiovascular Disease 09/09/21 Rich Barrett MD 6 [facility] [place], [place] [address] Physician Ophthalmology 01/21/22 Neil Kent MD [address] [place], [place] 931455 Dermatology 02/24/22 Diana Desir, [facility] [address] [place] [address] Assigned MTM Pharmacist 04/07/22 Livan Sharif MD [address] 567915 Cardiovascular Disease 05/14/22 Catherine Cm MD [address] 933425 Cardiovascular Disease 07/21/22 Valery Veronica, PA-C [address] [place], [place] 352765 Physician Plastic Maker Dermatology 07/21/22 Brea Quinn APRN DYNAMOMETER TESTER 500 [place] [address] Nurse Practitioner Dermatology 09/21/22 Brea Quinn APRN DYNAMOMETER TESTER [address] [place] [address] [facility] [place] 9[address] Assigned Surgical Provider 10/09/22 05/01/24 [place] [address] 672277 Assigned Musculoskeletal Provider 10/09/22 05/01/24 Alfonso Renteria MD [address] [place] [address] Assigned Neuroscience Provider 04/02/23 Radha Lomeli APRN DYNAMOMETER TESTER [address] [facility] [address] [place] [address] Assigned Heart and Vascular Provider 05/28/23 Jelena David OD [address] [facility] [place] [address] MD Ophthalmology 06/15/23 Esha Grimm PA-C [address] [place] [address] Assigned PCP 07/16/23 Valery Veronica PA-C [address] [place] [address] 381315 Physician Plastic Maker Dermatology 09/19/23 Rey Tay MD [address] [place] [address] 401275 MD Gastroenterology 09/20/23 Rocky Zepeda DO [address] [place] [address] 834175 Physician Gastroenterology 09/20/23 Philip Dumont MD [address] [place] [address] 309645 Physician Ophthalmology 09/22/23 Meredith Carrera PA-C [address] [place] [address] Assigned Gastroenterology Provider 11/01/23 Neil Kent MD [address] [address] Dermatology 11/02/23 [place] [address] 201997 Neurological Surgery 12/26/23 Audrey Waite PA-C 500 [place] [address] Physician Plastic Maker Dermatology 02/28/24 Valery Veronica PA-C [id number] [place] [address] Physician Plastic Maker Dermatology 04/10/24 Herminia Hatch MD 1875 [place] [address] Assigned Rheumatology Provider 07/02/24 documented as of this encounter
--- OUTSIDE RECORDS SUMMARY | 2024-07-22 22:42 | XMS_ITS | Encounter Summary ---
Author Organization [place] Address [address] [place] [address] 268[address] Care Team Providers Care Auto Service Advisor Name Role Phone Diana Desir [facility] Unavailable Rain Galaviz PA-C Unavailable [phone] Tavia Wyatt MD Unavailable Erica Farrell APRN TOY ASSEMBLER Unavailable Rich Barrett MD Unavailable [phone] Neil Kent MD Unavailable Diana Desir [facility] Unavailable Livan Sharif MD Unavailable Catherine Cm MD Unavailable + Valery Veronica PA-C Unavailable Brea Quinn BERRY PICKER TOY ASSEMBLER Unavailable Brea Quinn BERRY PICKER TOY ASSEMBLER Unavailable Jose Francisco Johnson MD Unavailable Alfonso Renteria MD Unavailable [phone] Esha Grimm PA-C Primary Care Provider [phone] Lomeli, Radha E BERRY PICKER TOY ASSEMBLER Unavailable [phone] Jelena David OD Unavailable Esha Grimm PA-C Unavailable [phone] Valery Veronica PA-C Unavailable [phone] Rey Tay MD Unavailable Rocky Zepeda DO Unavailable Philip Dumont MD Unavailable Meredith Carrera PA-C Unavailable Neil Kent MD Unavailable Juan Pablo Emmanuel MD Unavailable Audrey Waite PA-C Unavailable [phone] Valery Veronica PA-C Unavailable [phone] Herminia Hatch MD Unavailable Reason for Visit * Reason Onset Date Comments Appointment 12/02/2023 Clarification Encounter Details Date Type Department Care Team (Late st Contact Info) Description 12/02/2023 Telephone [facility] Heart [facility] [address] [place] [address] Radha Lomeli, BERRY PICKER TOY ASSEMBLER [address] [facility] [address] [place] [address] Appointment (Clarification) Social History Tobacco Use [...] [facility] of Occupat ional [facility] [...] exercise at this level? 30 min 03/10/2023 [place] Depression Scale Answer Date Recorded [place] Depression Score 5 01/14/2021 Last EPDS Self [...] PM CDT Legal Sex Female 4:13 AM CAPACITY PLANNER Gender Identity Female 03/02/2021 5:45 PM CDT Sexual Orientation Straight 02/28/2020 12 :51 AM CDT documented as of this encounter Miscellaneous Notes * Telephone Encounter - Carley Myles RN - 12/02/2023 10:22 AM CDT Discussed with patient and reviewed questions. Questions pertaining to OV's scheduled. Carley [facility] * Telephone Encounter - Janett Fragoso - 12/02/2023 8:56 AM CDT [facility] Call Center Phone Message May a [...] [facility] [place] [address] [facility], [address] [place] [address] [place] [address] [place] [address] Johnny Penn MD 4771 [place] [address] 11/28/2024 7:45 AM CDT Virtual Visit [facility] Gastroenterology Clinic [address] [place] [phone] Meredith Carrera PA-C [address] [place] [address] 682465 documented as of this encounter Visit Diagnoses Not on filedocumented in this encounter Additional Health Concerns Infection Onset Date Last Indicated Resolved Time Rule Out COVID-19 12/26/2023 12/26/2023 12/26/2023 9:50 AM CDT Rule Out COVID-19 04/09/2024 04/09/2024 04/10/2024 6:48 PM CDT Assessment Noted Time PHQ-9 Depression Total Score: 4 06/20/20 23 8:40 AM CAPACITY PLANNER documented as of this encounter Care Teams Auto Service Advisor Relationship Specialty Start Date End Date Esha Grimm PA-C [address] [place] [phone] PCP - General Family Medicine 05/04/23 Diana Desir, [facility] [address] [place] [address] Pharmacist Pharmacist 04/17/21 Rain Galaviz PA-C [address] [place] [address] [address] [place] [address] Physician Rock Mason Apprentice Dermatology 04/28/21 Tavia Wyatt MD [address] [place] [address] [address] [place] [address] Dermatology 07/14/21 Erica Farrell APRN TOY ASSEMBLER [address] [place] 903385 Nurse Practitioner Cardiovascular Disease 09/09/21 Rich Barrett MD [address] [facility] [address] [place], [place] 502895 Physician Ophthalmology 01/21/22 Neil Kent MD 500 [place], [place] 369135 Dermatology 02/24/22 Diana Desir, [facility] [address] [place] [address] Assigned MTM Pharmacist 04/07/22 Livan Sharif MD [address] [place] [address] Cardiovascular Disease 05/14/22 Catherine Cm MD [address] [facility] [address] [place] [address] Cardiovascular Disease 07/21/22 Valery Veronica PA-C 909 [place] [address] Physician Rock Mason Apprentice Dermatology 07/21/22 Brea Quinn APRN TOY ASSEMBLER [address] [place], [place] 493385 Nurse Practitioner Dermatology 09/21/22 Brea Quinn APRN TOY ASSEMBLER 6401 [facility] [place] [address] Assigned Surgical Provider 10/09/22 05/01/24 [place] [address] [facility] 300 [place] [address] Assigned Musculoskeletal Provider 10/09/22 05/01/24 Alfonso Renteria MD 5775 [facility] 200 [place], [place] [address]276 Assigned Neuroscience Provider 04/02/23 Radha Lomeli APRN TOY ASSEMBLER [address] [facility] [address] [place] [address] Assigned Heart and Vascular Provider 05/28/23 Jelena David OD [address] [facility] [place] [address] Ophthalmology 06/15/23 Esha Grimm PA-C [address] [place] [address] Assigned PCP 07/16/23 Valery Veronica PA-C [address] [place] [address] 479105 Physician Rock Mason Apprentice Dermatology 09/19/23 Rey Tay MD [address] [place] [address] MD Gastroenterology 09/20/23 Rocky Zepeda DO [address] [place] [address] 024285 Physician Gastroenterology 09/20/23 Philip Dumont MD [address] [place] [address] 311205 Physician Ophthalmology 09/22/23 Meredith Carrera PA-C [address] [place] [address] Assigned Gastroenterology Provider 11/01/23 Neil Kent MD [address] [address] Dermatology 11/02/23 [place] [address] [place], [place] 6[address] Neurological Surgery 12/26/23 Audrey Waite PA-C [address] [place] [address] 910175 Physician Rock Mason Apprentice Dermatology 02/28/24 Valery Veronica PA-C [address] [place] [address] Physician Rock Mason Apprentice Dermatology 04/10/24 Herminia Hatch MD [facility]5 [place], [place] [address] Assigned Rheumatology Provider 07/02/24 documented as of this encounter
--- OUTSIDE RECORDS SUMMARY | 2024-07-22 22:42 | XMS_ITS | Encounter Summary ---
Author Organization [place] Address [address] [place] [address] Care Team Providers Care Computer Bookkeeper Name Role Phone Diana Desir [facility] Unavailable [phone] Rain Galaviz PA-C Unavailable Tavia Wyatt MD Unavailable Erica Farrell APRN COM WRITER Unavailable Rich Barrett MD Unavailable [phone] Neil Kent MD Unavailable Diana Desir [facility] Unavailable Livan Sharif MD Unavailable Catherine Cm MD Unavailable + Valery Veronica PA-C Unavailable [phone] Brea Quinn MILLING SUPERVISOR COM WRITER Unavailable Brea Quinn MILLING SUPERVISOR COM WRITER Unavailable Jose Francisco Johnson MD Unavailable Alfonso Renteria MD Unavailable [phone] Esha Grimm PA-C Primary Care Provider Lomeli, Radha E MILLING SUPERVISOR COM WRITER Unavailable [phone] Jelena David OD Unavailable [phone] Esha Grimm PA-C Unavailable [phone] Valery Veronica PA-C Unavailable Rey Tay MD Unavailable Rocky Zepeda DO Unavailable Philip Dumont MD Unavailable Meredith Carrera PA-C Unavailable Neil Kent MD Unavailable Juan Pablo Emmanuel MD Unavailable [phone] Audrey Waite PA-C Unavailable [phone] Valery Veronica PA-C Unavailable Herminia Hatch MD Unavailable Encounter Details Date Type Department Care Team (Late st Contact Info) Description 03/06/[address] [facility] Spine and Neurosurgery [address] [place] [address] Ebony Cid APRN COM WRITER 500 [place] [address] Social History Tobacco Use Types [...] How often do you attend [facility] or zoroastrian services? 1 to 4 [...] Answer Date Recorded PHQ-2 Score 1 02/07/2024 [facility] - Occupational Stress Questionnaire Answer Date [...] at this level? 30 min 03/10/2023 [place] Depression Scale Answer Date Recorded [place] Depression Score 5 01/14/2021 Last EPDS [...] PM CDT Legal Sex Female 4:13 AM SHEET MANAGER Gender Identity Female 03/02/2021 5:45 PM CDT Sexual Orientation Straight 02/28/2020 12 :51 AM CDT documented as of this encounter Plan of Treatment Upcoming Encounters Date Type Department Care Team (Late st Contact Info) Description 10/23/2024 9:30 AM CDT Office Visit [facility] Neurology [address], [address] [place] [address] [place] [address] [place] [address] Johnny Penn MD [address] [place] 911435 11/28/2024 7:45 AM CDT Virtual Visit [facility] Gastroenterology [address] 4th [place] [phone] Meredith Carrera PA-C [address] [place] [address] documented as of this encounter Visit Diagnoses Not on filedocumented in this encounter Additional Health Concerns Infection Onset Date Last Indicated Resolved Time Rule Out COVID-19 04/09/2024 04/09/2024 04/10/2024 6:48 PM CDT Assessment Noted Time PHQ-9 Depression Total Score: 3 02/07/20 24 9:33 AM CDT documented as of this encounter Care Teams Computer Bookkeeper Relationship Specialty Start Date End Date Esha Grimm PA-C [address] [place] [address] PCP - General Family Medicine 05/04/23 [facility] [place] [address] Pharmacist Pharmacist 04/17/21 Rain Galaviz PA-C [address] [place] [address] [address] [place] [address] Physician Medical Staff Manager Dermatology 04/28/21 Tavia Wyatt MD [address] [place] [address] [address] [place] [address] Dermatology 07/14/21 Erica Farrell APRN COM WRITER [address] 2340600 [place] [address] Nurse Practitioner Cardiovascular Disease 09/09/21 Rich Barrett MD [address] [place] [address] [address] [place], [place] 8[address]345 Physician Ophthalmology 01/21/22 Neil Kent MD 500 [place] [address] Dermatology 02/24/22 Diana Desir, [facility] 3033 [place] [address] Assigned MTM Pharmacist 04/07/22 Livan Sharfi MD [address] 239[address] Cardiovascular Disease 05/14/22 Catherine Cm MD [address] 972695 Cardiovascular Disease 07/21/22 Valery Veronica, PAUcheC 9 [place], [place] [address]005 Physician Medical Staff Manager Dermatology 07/21/22 Brea Quinn APRN COM WRITER 500 [place] [address] Nurse Practitioner Dermatology 09/21/22 Brea Quinn APRN COM WRITER [address] [place], [place] [address] 566932 Assigned Surgical Provider 10/09/22 05/01/24 [place] [address] [place] [address] Assigned Musculoskeletal Provider 10/09/22 05/01/24 Alfonso Renteria MD [address] [facility] [address] 200 [place] [address] Assigned Neuroscience Provider 04/02/23 Radha Lomeli APRN COM WRITER [address] [facility] [address] [place] [address] Assigned Heart and Vascular Provider 05/28/23 Jelena David OD [address] [facility] [place] [address] MD Ophthalmology 06/15/23 Esha Grimm PA-C [address] [place] [address] Assigned PCP 07/16/23 Valery Veronica PA-C [address] [place] [address] 269925 Physician Medical Staff Manager Dermatology 09/19/23 Rey Tay MD [address] [place] [address] MD Gastroenterology 09/20/23 Rocky Zepeda DO [address] [place] [address] 659295 Physician Gastroenterology 09/20/23 Philip Dumont MD [address] [place] [address] 774055 Physician Ophthalmology 09/22/23 Meredith Carrera PA-C 909 [place] [address] Assigned Gastroenterology Provider 11/01/23 Neil Kent MD [address] [address] MD Dermatology 11/02/23 [place] [address] 950977 Neurological Surgery 12/26/23 Audrey Waite PA-C 500 [place] [address] Physician Medical Staff Manager Dermatology 02/28/24 Valery Veronica PA-C 280347 [place] [address] Physician Medical Staff Manager Dermatology 04/10/24 Herminia Hatch MD [address] [place] [address] Assigned Rheumatology Provider 07/02/24 documented as of this encounter
--- OUTSIDE RECORDS SUMMARY | 2024-07-22 22:42 | XMS_ITS | Encounter Summary ---
Author Organization [place] Address [address] [place] [address] Care Team Providers Care Ornamental Plaster Sticker Name Role Phone Diana Desir [facility] Unavailable Rain Galaviz PA-C Unavailable Tavia Wyatt MD Unavailable Erica Farrell APRN MANAGER PRODUCE Unavailable Rich Barrett MD Unavailable [phone] Neil Kent MD Unavailable Diana Desir [facility] Unavailable Livan Sharif MD Unavailable Catherine Cm MD Unavailable + Valery Veronica PA-C Unavailable Brea Quinn MASONRY TEACHER MANAGER PRODUCE Unavailable [phone] Brea Quinn MASONRY TEACHER MANAGER PRODUCE Unavailable Jose Francisco Johnson MD Unavailable Alfonso Renteria MD Unavailable [phone] Esha Grimm PA-C Primary Care Provider Lomeli, Radha E MASONRY TEACHER MANAGER PRODUCE Unavailable [phone] Jelena David OD Unavailable Esha Grimm PA-C Unavailable [phone] Valery Veronica PA-C Unavailable Rey Tay MD Unavailable Rocky Zepeda DO Unavailable Philip Dumont MD Unavailable [phone] Meredith Carrera PA-C Unavailable [phone] Neil Kent MD Unavailable Juan Pablo Emmanuel MD Unavailable Audrey Waite PA-C Unavailable [phone] Valery Veronica PA-C Unavailable [phone] Herminia Hatch MD Unavailable Reason for Visit * Reason Onset Date Comments Call Back 12/21/2023 Schedule appt to brandy Encounter Details Date Type Department Care Team (Late st Contact Info) Description 12/21/2023 [facility] [address] [facility] [address] [place] [address] Livan Sharif MD [address] [facility] [address] [place] [address] Call Back (Schedule appt tomorrow [...] Date Recorded PHQ-2 Score 0 10/25/2023 [facility] - Occupational Stress Questionnaire Answer Date [...] PM CDT Legal Sex Female 4:13 AM DREDGE ENGINEER Gender Identity Female 03/02/2021 5:45 PM [...] Routing to museum service scheduler. Carley ZABALA [facility] * Telephone Encounter - Sandra Whiting - 12/21/2023 12:34 PM CDT [facility] Call Center Phone Message May [...] Visit [facility] Neurology Clinics - [address], [address] [place] [address] [place] [address] [place], [place] [address] Johnny Penn MD [address] [place] [address] 11/28/2024 7:45 AM CDT Virtual Visit [facility] Gastroenterology Clinic [place] 7[address]79 [facility] [address] 4th [place] [address] Meredith Carrera PA-C [address] [place] [address] documented as of this encounter Visit Diagnoses Not on filedocumented in this encounter Additional Health Concerns Infection Onset Date Last Indicated Resolved Time Rule Out COVID-19 12/26/2023 12/26/2023 12/26/2023 9:50 AM CDT Rule Out COVID-19 04/09/2024 04/09/2024 04/10/2024 6:48 PM CDT Assessment Noted Time PHQ-9 Depression Total Score: 4 06/20/20 8:40 AM DREDGE ENGINEER documented as of this encounter Care Teams Ornamental Plaster Sticker Relationship Specialty Start Date End Date Esha Grimm PA-C [address] [place] [address] PCP - General Family Medicine 05/04/23 Diana Desir, [facility] [address] [place] [address] Pharmacist Pharmacist 04/17/21 Rain Galaviz PA-C [address] [place] [address] [address] [place] [address] Physician Loader Helper Dermatology 04/28/21 Tavia Wyatt MD [address] [place] [address] [address] [place] [address] Dermatology 07/14/21 Erica Farrell APRN MANAGER PRODUCE [address] [facility] [address] [place] [address] Nurse Practitioner Cardiovascular Disease 09/09/21 Rich Barrett MD 516 [facility] [address] [place], [place] [address] Physician Ophthalmology 01/21/22 Neil Kent MD 500 [place] [address] Dermatology 02/24/22 [facility] 30[address] [place] [address] Assigned [place] Pharmacist 04/07/22 Livan Sharif MD [address] 363985 Cardiovascular Disease 05/14/22 Catherine Cm MD 6[address] [facility] [address] 452065 Cardiovascular Disease 07/21/22 Valery Veronica, PAUcheC 909 [place] [address] Physician Loader Helper Dermatology 07/21/22 Brea Quinn APRN MANAGER PRODUCE 500 [place] [address] Nurse Practitioner Dermatology 09/21/22 Brea Quinn APRN MANAGER PRODUCE [address] [place] [address] [facility] [address] Assigned Surgical Provider 10/09/22 05/01/24 [place] [address] [place] [address] Assigned Musculoskeletal Provider 10/09/22 05/01/24 Alfonso Renteria MD [address] [place] [facility] 200 [place] [address] Assigned Neuroscience Provider 04/02/23 Radha Lomeli APRN MANAGER PRODUCE [address] [facility] [address] [place] [address] Assigned Heart and Vascular Provider 05/28/23 Jelena David OD [address] [place] [address] MD Ophthalmology 06/15/23 Esha Grimm PA-C [address] [place] [address] Assigned PCP 07/16/23 Valery Veronica PA-C [address] [place] [address] 565265 Physician Loader Helper Dermatology 09/19/23 Rey Tay MD [address] [place] [address] Gastroenterology 09/20/23 Rocky Zepeda DO [address] [place] [address] 344635 Physician Gastroenterology 09/20/23 Philip Dumont MD [address] [place] [address] 127375 Physician Ophthalmology 09/22/23 Meredith Carrera PA-C [address] [place], [place] [address]0045 Assigned Gastroenterology Provider 11/01/23 Neil Kent MD [address] [address] Dermatology 11/02/23 [place] [address] 871927 Neurological Surgery 12/26/23 Audrey Waite PA-C 500 [place] [address] Physician Loader Helper Dermatology 02/28/24 Valery Veronica PA-C [address] [place] [address] Physician Loader Helper Dermatology 04/10/24 Herminia Hatch MD [address]75 [place], [place] 19547[address] Assigned Rheumatology Provider 07/02/24 documented as of this encounter
--- OUTSIDE RECORDS SUMMARY | 2024-07-22 22:42 | XMS_ITS | Encounter Summary ---
Author Organization [place] Address [address] [place] [address] Care Team Providers Care Brim Molder Name Role Phone Diana Desir [facility] Unavailable Rain Galaviz PA-C Unavailable Tavia Wyatt MD Unavailable Erica Farrell APRN TWIST MAKER Unavailable Rich Barrett MD Unavailable [phone] Neil Kent MD Unavailable Diana Desir [facility] Unavailable Livan Sharif MD Unavailable Catherine Cm MD Unavailable + Valery Veronica PA-C Unavailable Brea Quinn YARD JOCKEY TWIST MAKER Unavailable Brea Quinn YARD JOCKEY TWIST MAKER Unavailable Jose Francisco Johnson MD Unavailable Alfonso Renteria MD Unavailable [phone] Esha Grimm PA-C Primary Care Provider Radha Lomeli APRN TWIST MAKER Unavailable Jelena David OD Unavailable Esha Grimm PA-C Unavailable [phone] Valery Veronica PA-C Unavailable [phone] Rey Tay MD Unavailable Rocky Zepeda DO Unavailable Philip Dumont MD Unavailable [phone] Meredith Carrera PA-C Unavailable [phone] Neil Kent MD Unavailable Juan Pablo Emmanuel MD Unavailable [phone] Audrey Waite PA-C Unavailable [phone] Valery Veronica PA-C Unavailable Herminia Hatch MD Unavailable Encounter Details Date Type Department Care Team (Late st Contact Info) Description 02/28/2024 [facility] Medical Advice [facility] G[facility]enterology Clinic [address] [place] [address] Rain Burnette, RN Social History [...] 02/07/2024 [facility] [...] exercise at this level? 30 min 03/10/2023 [place] Depression Scale Answer Date Recorded [place] Depression Score 5 01/14/2021 Last EPDS Self [...] PM CDT Legal Sex Female 4:13 AM ULTRASOUND SONOGRAPHER Gender Identity Female 03/02/2021 5:45 PM CDT Sexual Orientation Straight 02/28/2020 12 :51 AM CDT documented as of this encounter Plan of Treatment Upcoming Encounters Date Type Department Care Team (Late st Contact Info) Description 10/23/2024 9:30 AM CDT Office Visit [facility] Neurology [address], [address] [place] [address] [place] [address] [place], [place] 9[address] Johnny Penn MD [address] [facility] [place] [address] 11/28/2024 7:45 AM CDT Virtual Visit [facility] Gastroenterology Clinic [address] 4th [place] [address] Meredith Carrera PA-C [address] [place] [address] documented as of this encounter Visit Diagnoses Not on filedocumented in this encounter Additional Health Concerns Infection Onset Date Last Indicated Resolved Time Rule Out COVID-19 04/09/2024 04/09/2024 04/10/2024 6:48 PM CDT Assessment Noted Time PHQ-9 Depression Total Score: 3 02/07/20 24 9:33 AM CDT documented as of this encounter Care Teams Brim Molder Relationship Specialty Start Date End Date Esha Grimm PA-C [address] [place] [address] PCP - General Family Medicine 05/04/23 Diana Desir, [facility] [address] [place] [address] Pharmacist Pharmacist 04/17/21 Rain Galaviz PA-C [address] [place] [address] [address] [place] [address] Physician Shrub Planter Dermatology 04/28/21 Tavia Wyatt MD [address] [place] [address] [address] [facility] [place] [address] Dermatology 07/14/21 Erica Farrell APRN TWIST MAKER 6405 [facility] [address] [place] 831925 Nurse Practitioner Cardiovascular Disease 09/09/21 Rich Barrett MD [address] [facility] 9[address] [place], [place] [address] Physician Ophthalmology 01/21/22 Neil Kent MD 500 [place], [place] 859665 Dermatology 02/24/22 Diana Desir, [facility] 30[address] [place] [address] Assigned MTM Pharmacist 04/07/22 Livan Sharif MD [address] [facility] [address] [place] 7[address]25 Cardiovascular Disease 05/14/22 Catherine Cm MD [address] [facility]00 [place] 206195 Cardiovascular Disease 07/21/22 Valery Veronica, PAUcheC 909 [place], [place] [address] Physician Shrub Planter Dermatology 07/21/22 Brea Quinn APRN TWIST MAKER 500 [place] [address] Nurse Practitioner Dermatology 09/21/22 Brea Quinn APRN TWIST MAKER 6401 [facility] [place] [address] Assigned Surgical Provider 10/09/22 05/01/24 [place] [address] [place] [address] Assigned Musculoskeletal Provider 10/09/22 05/01/24 Alfonso Renteria MD [address] [facility] [address] 200 [place] [address] Assigned Neuroscience Provider 04/02/23 Armani Radha Stov[place] YARD JOCKEY TWIST MAKER [address] [place] 07[address]85 Assigned Heart and Vascular Provider 05/28/23 Jelena David OD [address] [facility] [address] [place] [id number] MD Ophthalmology 06/15/23 Esha Grimm PA-C [address] [place] [address] Assigned PCP 07/16/23 Valery Veronica PA-C [address] [place] [address] 196675 Physician Shrub Planter Dermatology 09/19/23 Rey Tay MD [address] [place] [address] 875215 Gastroenterology 09/20/23 Rocky Zepeda DO [address] [place] [address] 845725 Physician Gastroenterology 09/20/23 Philip Dumont MD [address] [place] [address] 435635 Physician Ophthalmology 09/22/23 Meredith Carrera PA-C [address] [place] [address] Assigned Gastroenterology Provider 11/01/23 Neil Kent MD [address] [address] Dermatology 11/02/23 [place] [address] [address] Neurological Surgery 12/26/23 Audrey Waite PA-C [address] [place] [address] Physician Shrub Planter Dermatology 02/28/24 Valery Veronica PA-C [address]49 [address] [place] [address] Physician Shrub Planter Dermatology 04/10/24 Herminia Hatch MD [facility]5 [place], [place] [address] Assigned Rheumatology Provider 07/02/24 documented as of this encounter
--- OUTSIDE RECORDS SUMMARY | 2024-07-22 22:42 | XMS_ITS | Encounter Summary ---
Author Organization [place] Address [address] [place] [address] Care Team Providers Care Nurse Researcher Name Role Phone Diana Desir [facility] Unavailable [phone] Rain Galaviz PA-C Unavailable Tavia Wyatt MD Unavailable Erica Farrell APRN MOTOR VEHICLE LICENCE EXAMINER Unavailable Rich Barrett MD Unavailable [phone] Neil Kent MD Unavailable Diana Desir [facility] Unavailable Livan Sharif MD Unavailable Catherine Cm MD Unavailable + Valery Veronica PA-C Unavailable Brea Quinn AXLE POLISHER MOTOR VEHICLE LICENCE EXAMINER Unavailable Brea Quinn AXLE POLISHER MOTOR VEHICLE LICENCE EXAMINER Unavailable Jose Francisco Johnson MD Unavailable Alfonso Renteria MD Unavailable [phone] Esha Grimm PA-C Primary Care Provider [phone] Radha Lomeli APRN MOTOR VEHICLE LICENCE EXAMINER Unavailable Jelena David OD Unavailable Esha Grimm PA-C Unavailable [phone] Valery Veronica PA-C Unavailable [phone] Rey Tay MD Unavailable Rocky Zepeda DO Unavailable Philip Dumont MD Unavailable [phone] Meredith Carrera PA-C Unavailable [phone] Neli Kent MD Unavailable Juan Pablo Emmanuel MD Unavailable [phone] Audrey Waite PA-C Unavailable [phone] Valery Veronica PA-C Unavailable Herminia Hatch MD Unavailable Encounter Details Date Type Department Care Team (Late st Contact Info) Description 11/16/2023 [facility] Medical Advice [address] [address] Asiya Reddy, RN Social History [...] Answer Date Recorded PHQ-2 Score 0 10/25/2023 [facility] - Occupational Stress Questionnaire Answer [...] exercise at this level? 30 min 03/10/2023 [place] Depression Scale Answer Date Recorded [place] Depression Score 5 01/14/2021 Last EPDS Self [...] CDT Legal Sex Female 4:13 AM MEDIA PRODUCER Gender Identity Female 03/02/2021 5:45 PM CDT Sexual Orientation Straight 02/28/2020 12 :51 AM CDT documented as of this encounter Plan of Treatment Upcoming Encounters Date Type Department Care Team (Late st Contact Info) Description 10/23/2024 9:30 AM CDT Office Visit [facility] Neurology [address], [address] [place] [address] [place] [address] [place], [place] 0827[address] Johnny Penn MD 7596 [place], [place] 163335 11/28/2024 7:45 AM CDT Virtual Visit [facility] Gastroenterology Clinic [address] 4th [place] [address] Meredith Carrera PA-C [address] [place] [address] documented as of this encounter Visit Diagnoses Not on filedocumented in this encounter Additional Health Concerns Infection Onset Date Last Indicated Resolved Time Rule Out COVID-19 12/26/2023 12/26/2023 12/26/2023 9:50 AM CDT Rule Out COVID-19 04/09/2024 04/09/2024 04/10/2024 6:48 PM CDT Assessment Noted Time PHQ-9 Depression Total Score: 4 06/20/20 8:40 AM MEDIA PRODUCER documented as of this encounter Care Teams Nurse Researcher Relationship Specialty Start Date End Date Esha Grimm PA-C [address] [place] [address] PCP - General Family Medicine 05/04/23 Diana Desir, [facility] [address] [facility] [place] [address] Pharmacist Pharmacist 04/17/21 Rain Galaviz PA-C [address] [place] [address] [address] [place] [address] Physician Sausage Grinder Dermatology 04/28/21 Tavia Wyatt MD [address] [place] [address] [address] [place] [address] Dermatology 07/14/21 Erica Farrell APRN MOTOR VEHICLE LICENCE EXAMINER 6405 [facility] [place] [address] Nurse Practitioner Cardiovascular Disease 09/09/21 Rich Barrett MD [address] [address] Physician Ophthalmology 01/21/22 Neil Kent MD 500 [place], [place] 408455 Dermatology 02/24/22 Diana Desir, [facility] 30[address] [place], [place] 137216 Assigned MTM Pharmacist 04/07/22 Livan Sharif MD [address] [facility] [place] 564425 Cardiovascular Disease 05/14/22 Catherine Cm MD [address] [facility] [place] 517595 Cardiovascular Disease 07/21/22 Valery Veronica, PA-C 909 [place], [place] 526225 Physician Sausage Grinder Dermatology 07/21/22 Brea Qunin APRN MOTOR VEHICLE LICENCE EXAMINER 500 [place], [place] 228435 Nurse Practitioner Dermatology 09/21/22 Brea Quinn APRN MOTOR VEHICLE LICENCE EXAMINER [address] [place] [address] [place] 325122 Assigned Surgical Provider 10/09/22 05/01/24 [place] [address] [place], [place] 749627 Assigned Musculoskeletal Provider 10/09/22 05/01/24 Alfonso Renteria MD [address] [facility] [address] 200 [place] [address] Assigned Neuroscience Provider 04/02/23 Radha Lomeli APRN MOTOR VEHICLE LICENCE EXAMINER 6405 [facility] [address] [place] [address] Assigned Heart and Vascular Provider 05/28/23 [place] [address] [place] [address] MD Ophthalmology 06/15/23 Esha Grimm PA-C [address] [place] [address] Assigned PCP 07/16/23 Valery Veronica PA-C [address] [place] [address] 583325 Physician Sausage Grinder Dermatology 09/19/23 eRy Tay MD [address] [place] [address] 632675 Gastroenterology 09/20/23 Rocky Zepeda DO [address] [place] [address] 775955 Physician Gastroenterology 09/20/23 Philip Dumont MD [address] [place] [address] 711255 Physician Ophthalmology 09/22/23 Meredith Carrera PA-C 909 [place] [address] Assigned Gastroenterology Provider 11/01/23 Neil Kent MD [address] [place] [address] Dermatology 11/02/23 [place] [address] 961917 Neurological Surgery 12/26/23 Audrey Waite PA-C 500 [place] [address] Physician Sausage Grinder Dermatology 02/28/24 Valery Veronica PA-C [address] [place] [address] Physician Sausage Grinder Dermatology 04/10/24 Herminia Hatch MD [facility]5 [place] [address] Assigned Rheumatology Provider 07/02/24 documented as of this encounter
--- OUTSIDE RECORDS SUMMARY | 2024-07-22 22:42 | XMS_ITS | Encounter Summary ---
Author Organization [place] Address [address] [place] [address] Care Team Providers Care Debt Counselor Name Role Phone Diana Desir [facility] Unavailable Rain Galaviz PA-C Unavailable Tavia Wyatt MD Unavailable Erica Farrell APRN SIGN LANGUAGE TEACHER Unavailable Rich Barrett MD Unavailable [phone] Neil Kent MD Unavailable Diana Desir [facility] Unavailable [phone] Livan Sharif MD Unavailable Catherine Cm MD Unavailable + Valery Veronica PA-C Unavailable Brea Quinn LEHR ATTENDANT SIGN LANGUAGE TEACHER Unavailable Brea Quinn LEHR ATTENDANT SIGN LANGUAGE TEACHER Unavailable [phone] Jose Francisco Johnson MD Unavailable Alfonso Renteria MD Unavailable [phone] Esha Grimm PA-C Primary Care Provider Lomeli, Radha E LEHR ATTENDANT SIGN LANGUAGE TEACHER Unavailable [phone] Jelena David OD Unavailable Esha Grimm PA-C Unavailable [phone] Valery Veronica PA-C Unavailable [phone] Rey Tay MD Unavailable Rocky Zepeda DO Unavailable Philip Dumont MD Unavailable [phone] Meredith Carrera PA-C Unavailable [phone] Neil Kent MD Unavailable Jua nPablo Emmanuel MD Unavailable Audrey Waite PA-C Unavailable [phone] Valery Veronica PA-C Unavailable Herminia Hatch MD Unavailable Encounter Details Date Type Department Care Team (Late st Contact Info) Description 11/15/2023 [facility] Medical Advice [address] [address] Vivian Grant Social History Tobacco [...] PM CDT Legal Sex Female 4:13 AM WELT MAKER Gender Identity Female 03/02/2021 5:45 PM CDT Sexual Orientation Straight 02/28/2020 12 :51 AM CDT documented as of this encounter Plan of Treatment Upcoming Encounters Date Type Department Care Team (Late st Contact Info) Description 10/23/2024 9:30 AM CDT Office Visit [facility] Neurology [address] [place] [address] [place] [address] [place], [place] [address] Johnny Penn MD [address] [place], [place] [address] 11/28/2024 7:45 AM CDT Virtual Visit [facility] Gastroenterology Clinic [address] 4th [place] [address] Meredith Carrera PA-C [address] [place] [address] documented as of this encounter Visit Diagnoses Not on filedocumented in this encounter Additional Health Concerns Infection Onset Date Last Indicated Resolved Time Rule Out COVID-19 12/26/2023 12/26/2023 12/26/2023 9:50 AM CDT Rule Out COVID-19 04/09/2024 04/09/2024 04/10/2024 6:48 PM CDT Assessment Noted Time PHQ-9 Depression Total Score: 4 06/20/20 23 8:40 AM WELT MAKER documented as of this encounter Care Teams Debt Counselor Relationship Specialty Start Date End Date Esha Grimm PA-C [address] [place] [phone] PCP - General Family Medicine 05/04/23 Diana Desir, [facility] [address] [place] [address] Pharmacist Pharmacist 04/17/21 Rain Galaviz PA-C [address] [place] [address] [address] [place] [address] Physician Oracle Fusion Middleware Architect Dermatology 04/28/21 Tavia Wyatt MD [address] [place] [address] [address] [place] [address] Dermatology 07/14/21 Erica Farrell APRN SIGN LANGUAGE TEACHER 6405 [facility] [address] [place] [address] Nurse Practitioner Cardiovascular Disease 09/09/21 Rich Barrett MD 6 [facility] 9A [place] [address] Physician Ophthalmology 01/21/22 Neil Kent MD 500 [place], [place] 6[address]155 Dermatology 02/24/22 Diana Desir, [facility] [address] [place], [place] [address]776 Assigned MTM Pharmacist 04/07/22 Livan Sharif MD [address] [place] [address]35 Cardiovascular Disease 05/14/22 Catherine Cm MD [address] [facility] [place] 171105 Cardiovascular Disease 07/21/22 Valery Veronica, PA-C 9 [place], [place] [address] Physician Oracle Fusion Middleware Architect Dermatology 07/21/22 Brea Quinn APRN SIGN LANGUAGE TEACHER 500 [place], [place] 830295 Nurse Practitioner Dermatology 09/21/22 Brea Quinn APRN SIGN LANGUAGE TEACHER [address]01 [facility] [place] [address]8522 Assigned Surgical Provider 10/09/22 05/01/24 [place] [address] [place], [place] 406207 Assigned Musculoskeletal Provider 10/09/22 05/01/24 Alfonso Renteria MD [address] [facility] [address] 200 [place] [address] Assigned Neuroscience Provider 04/02/23 Radha Lomeli APRN SIGN LANGUAGE TEACHER 6405 [facility] [address] [place], [place] 968485 Assigned Heart and Vascular Provider 05/28/23 Jelena David OD [address] [facility] [address] [place] [id number] MD Ophthalmology 06/15/23 Esha Grimm PA-C [address] [place] [address] Assigned PCP 07/16/23 Valery Veronica PA-C [address] [place] [address] Physician Oracle Fusion Middleware Architect Dermatology 09/19/23 Rey Tay MD 9 [place], [place] 993805 Gastroenterology 09/20/23 Rocky Zepeda DO [address] [place] [address]88955 Physician Gastroenterology 09/20/23 Philip Dumont MD [address] [place] [address] 237325 Physician Ophthalmology 09/22/23 Meredith Carrera PA-C 909 [place] [address] Assigned Gastroenterology Provider 11/01/23 Neil Kent MD [address] [place] [address] Dermatology 11/02/23 [place] [address] [address] Neurological Surgery 12/26/23 Audrey Waite PA-C 500 [place] [address] Physician Oracle Fusion Middleware Architect Dermatology 02/28/24 Valery Veronica PA-C [address] [place] [address] Physician Oracle Fusion Middleware Architect Dermatology 04/10/24 Herminia Hatch MD [facility]5 [place] [address] Assigned Rheumatology Provider 07/02/24 documented as of this encounter
--- OUTSIDE RECORDS SUMMARY | 2024-07-22 22:42 | XMS_ITS | Encounter Summary ---
Author Organization [place] Address [address] [place] [address] Care Team Providers Care Low Vision Therapist Name Role Phone Diana Desir [facility] Unavailable Rain Galaviz PA-C Unavailable Tavia Wyatt MD Unavailable Erica Farrell APRN PSYCHODRAMATIST Unavailable Rich Barrett MD Unavailable [phone] Neil Kent MD Unavailable Diana Desir [facility] Unavailable [phone] Livan Sharif MD Unavailable Catherine Cm MD Unavailable + Valery Veronica PA-C Unavailable [phone] Brea Quinn TRAINING AND DEVELOPMENT OFFICER PSYCHODRAMATIST Unavailable Brea Quinn TRAINING AND DEVELOPMENT OFFICER PSYCHODRAMATIST Unavailable Jose Francisco Johnson MD Unavailable Alfonso Renteria MD Unavailable [phone] Esha Grimm PA-C Primary Care Provider Radha Lomeli APRN PSYCHODRAMATIST Unavailable Jelena David OD Unavailable [phone] Esha Grimm PA-C Unavailable [phone] Valery Veronica PA-C Unavailable Rey Tay MD Unavailable Rocky Zepeda DO Unavailable Philip Dumont MD Unavailable Meredith Carrera PA-C Unavailable Neil Kent MD Unavailable Juan Pablo Emmanuel MD Unavailable Audrey Waite PA-C Unavailable Valery Veronica PA-C Unavailable [phone] Herminia Hatch MD Unavailable Reason for Referral * CV Testing (Routine) - Closed Specialty Diagnoses / Procedures Referred By Contparviz t Referred To Contact Cardiology Diagnoses SVT (supraventricular tachycardia) Procedures Cardiac Event Monitor Adult Pediatric Radha Lomeli APRN PSYCHODRAMATIST [address] [place] [address] Phone: tel: fax: [facility] [address] [facility] [address] [place] [address] Phone: tel: fax: Referral ID Status Reason Start Date Expiration Date Visits Re quested Visits Authorized [id number] Closed 03/07/2024 03/07/2025 1 1 Encounter Details Date Type Department Care Team (Late st Contact Info) Description 03/07/2024 Telephone [facility] [address] [facility] [address] [place] [address] Carley Myles, RN Social History [...] do you attend [facility] or gnosticist services? 1 to 4 times [...] Answer Date Recorded PHQ-2 Score 1 02/07/2024 [facility] [...] exercise at this level? 30 min 03/10/2023 [place] Depression Scale Answer Date Recorded [place] Depression Score 5 01/14/2021 Last EPDS Self [...] PM CDT Legal Sex Female 4:13 AM CHANGE CONTROL MANAGER Gender Identity Female 03/02/2021 5:45 PM CDT Sexual Orientation Straight 02/28/2020 12 :51 AM CDT documented as of this encounter Miscellaneous Notes * Telephone Encounter - Carley Myles RN - 03/07/2024 1:21 PM CDT Called patient to discuss. Pt states she will mail back the Zio patch and get event monitor placed. Pt requested a building manager to call her instead of her reaching out. Will route to scheduling team. Orders in EPIC. Carley ZABALA [facility] * Telephone Encounter - [...] Radha Lomeli CNP for review. Carley ZABALA [facility] documented in this encounter Plan of Treatment Upcoming Encounters Date Type Department Care Team (Late st Contact Info) Description 10/23/2024 9:30 AM CDT Office Visit [facility] Neurology Clinics [address] [place] [address] [place] [address] [place], [place] [phone] Johnny Penn MD [address] [place], [place] [phone] 11/28/2024 7:45 AM CDT Virtual Visit [facility] Gastroenterology Clinic [address] 4th [place] [address] Meredith aCrrera PA-C 909 [place] [address] documented as of this encounter Results * CARDIAC EVENT MONITOR APPLICATION AND PROVIDER INTERPRETATION (03/08/2024 11:18 AM CDT) Anatomical Region Laterality Modality Other Radha E Lomeli TRAINING AND DEVELOPMENT OFFICER PSYCHODRAMATIST CV CARDIAC SERVICES ORDERA BLES Final Result [...] documented as of this encounter Care Teams Low Vision Therapist Relationship Specialty Start Date End Date Esha Grimm PA-C [address] [place] [phone] PCP - General Family Medicine 05/04/23 Diana Desir, [facility] [address] [place] [address] Pharmacist Pharmacist 04/17/21 Rain Galaviz PA-C [address] [place] [address] [address] [place], [place] [phone] Physician Corrosion Prevention Metal Sprayer Dermatology 04/28/21 Tavia Wyatt MD [address] [place] [address] [address] [place], [place] [phone] Dermatology 07/14/21 Erica Farrell APRN PSYCHODRAMATIST [address] [place], [place] 46[address] Nurse Practitioner Cardiovascular Disease 09/09/21 Rich Barrett MD 516 [facility] 9A [place] [address] Physician Ophthalmology 01/21/22 Neil Kent MD 500 [place] [address] Dermatology 02/24/22 Diana Desir, [facility] 30[address] [place], [place] 8[address]206 Assigned MTM Pharmacist 04/07/22 Livan Sharif MD [address], [facility]00 [place], [place] [address] Cardiovascular Disease 05/14/22 Catherine Cm MD [address] [address]50[address] Cardiovascular Disease 07/21/22 Valery Veronica, PA-C 909 [place], [place] [address] Physician Corrosion Prevention Metal Sprayer Dermatology 07/21/22 Brea Quinn APRN PSYCHODRAMATIST 500 [place], [place] [address] Nurse Practitioner Dermatology 09/21/22 Brea Quinn APRN PSYCHODRAMATIST 6401 [facility] [place] [address] Assigned Surgical Provider 10/09/22 05/01/24 [place] [address] [facility] 300 [place] [address] Assigned Musculoskeletal Provider 10/09/22 05/01/24 Alfonso Renteria MD [address] [facility] 200 [place], [place] 2[address] Assigned Neuroscience Provider 04/02/23 Radha Lomeli APRN PSYCHODRAMATIST 6405 [facility] [address] [place] [address] Assigned Heart and Vascular Provider 05/28/23 Jelena David OD [address] [facility] [address] [place] [id number] Ophthalmology 06/15/23 Esha Grimm PA-C [address] [place] [phone] Assigned PCP 07/16/23 Valery Veroniac PA-C [address] [place] [address] 849835 Physician Corrosion Prevention Metal Sprayer Dermatology 09/19/23 Rey Tay MD 9 [place], [place] [address] Gastroenterology 09/20/23 Rocky Zepeda DO 500 [place] [address] Physician Gastroenterology 09/20/23 Philip Dumont MD 516 [place] [address] Physician Ophthalmology 09/22/23 Meredith Carrera PA-C 909 [place] [address] Assigned Gastroenterology Provider 11/01/23 Neil Kent MD [address] [address] MD Dermatology 11/02/23 [place] [address] [address] Neurological Surgery 12/26/23 Audrey Waite PA-C 500 [place] [address] Physician Corrosion Prevention Metal Sprayer Dermatology 02/28/24 Valery Veronica PA-C 819145 [place] [address] Physician Corrosion Prevention Metal Sprayer Dermatology 04/10/24 Herminia Hatch MD [facility]5 [place], [place] [address] Assigned Rheumatology Provider 07/02/24 documented as of this encounter
[2024-07-22 22:43] LABS: Chloride* 103 mmol/L (96-114); Sodium* 136 mmol/L (135-149)
--- OUTSIDE RECORDS SUMMARY | 2024-07-22 22:43 | XMS_ITS | Encounter Summary ---
Author Organization [place] Address [address] [place] [address] Care Team Providers Care Switchman Supervisor Name Role Phone Diana Desir [facility] Unavailable Rain Galaviz PA-C Unavailable Tavia Wyatt MD Unavailable Erica Farrell APRN SCALLOP DREDGER Unavailable Rich Barrett MD Unavailable [phone] Neil Kent MD Unavailable Diana Desir [facility] Unavailable Livan Sharif MD Unavailable Catherine Cm MD Unavailable + Valery Veronica PA-C Unavailable Brea Quinn BALLOON SANDER SCALLOP DREDGER Unavailable [phone] Brea Quinn BALLOON SANDER SCALLOP DREDGER Unavailable [phone] Jose Francisco Johnson MD Unavailable Alfonso Renteria MD Unavailable [phone] Esha Grimm PA-C Primary Care Provider Radha Lomeli APRN SCALLOP DREDGER Unavailable Jelena David OD Unavailable Pao Joseph RN Unavailable Unavailable Esha Grimm PA-C Unavailable [phone] Valery Veronica PA-C Unavailable Rey Tay MD Unavailable Rocky Zepeda DO Unavailable Philip Dumont MD Unavailable Meredith Carrera PA-C Unavailable Neil Kent MD Unavailable Juan Pablo Emmanuel MD Unavailable Audrey Waite PA-C Unavailable Valery Veronica PA-C Unavailable [phone] Herminia Hatch MD Unavailable Reason for Visit * Reason Onset Date Comments Medication Question 10/21/2023 omeprazole Encounter Details Date Type Department Care Team (Late st Contact Info) Description 10/21/2023 Telephone [facility] Gastroenterology Clinic [address] [place] [address] Meredith Carrera PA-C [address] [place] [address] Medication Question (omeprazole ) Social History [...] Score 0 10/25/2023 [facility]ational Stress Questionnaire Answer Date [...] exercise at this level? 30 min 03/10/2023 Bernice Depression Scale Answer Date Recorded Bernice Depression Score 5 01/14/2021 Last EPDS Self [...] PM CDT Legal Sex Female 4:13 AM SERVICES CLERK Gender Identity Female 03/02/2021 5:45 PM CDT [...] routed to: [facility] GASTROENTEROLOGY ADULT [facility][[id number]] Travel Screening: Not Applicable documented in this encounter Plan of Treatment Upcoming Encounters Date Type Department Care Team (Late st Contact Info) Description 10/23/2024 9:30 AM CDT Office Visit [facility] Neurology Clinics - [place] [address] [facility], [address] [place] [phone] [place] [address] [place] [address] Johnny Penn MD [address] [place] [address] 11/28/2024 7:45 AM CDT Virtual Visit [facility] Gastroenterology Clinic [address] 4th [place] [phone] Meredith Carrera PA-C [address] [place] [address]65[address] documented as of this encounter Visit Diagnoses Not on filedocumented in this encounter Additional Health Concerns Infection Onset Date Last Indicated Resolved Time Rule Out COVID-19 12/26/2023 12/26/2023 12/26/2023 9:50 AM CDT Rule Out COVID-19 04/09/2024 04/09/2024 04/10/2024 6:48 PM CDT Assessment Noted Time PHQ-9 Depression Total Score: 4 06/20/20 23 8:40 AM SERVICES CLERK documented as of this encounter Care Teams Switchman Supervisor Relationship Specialty Start Date End Date Esha Grimm PA-C [address] [place] [address] PCP - General Family Medicine 05/04/23 Diana Desir, [facility] [address] [place], [place] [address] Pharmacist Pharmacist 04/17/21 Rain Galaviz PA-C [address] [place] [address] [address] [place] [address] Physician Manufacturing Area Manager Dermatology 04/28/21 Tavia Wyatt MD [address] [place] [address] [address] [place] [address] Dermatology 07/14/21 Erica Farrell APRN SCALLOP DREDGER [address] [place] [address] Nurse Practitioner Cardiovascular Disease 09/09/21 Rich Barrett MD [address] [place] [address] 9[address] [place], [place] [address] Physician Ophthalmology 01/21/22 Neil Kent MD 500 [place], [place] [address] Dermatology 02/24/22 Diana Desir, [facility] 3033 [place] [address] Assigned MTM Pharmacist 04/07/22 Livan Sharif MD [address] [place] 3118[address] Cardiovascular Disease 05/14/22 Catherine Cm MD [address] [place] [address] Cardiovascular Disease 07/21/22 Valery Veronica PA-C 909 [place], [place] [address] Physician Manufacturing Area Manager Dermatology 07/21/22 Brea Quinn APRN SCALLOP DREDGER 500 [place], [place] 488385 Nurse Practitioner Dermatology 09/21/22 Brea Quinn APRN SCALLOP DREDGER 6401 [facility] [place] 329572 Assigned Surgical Provider 10/09/22 05/01/24 [place] [address] [facility] 300 [place] [address] Assigned Musculoskeletal Provider 10/09/22 05/01/24 Alfonso Renteria MD 5775 [facility] 200 [place] [address] Assigned Neuroscience Provider 04/02/23 Radha Lomeli APRN SCALLOP DREDGER 6405 [facility] [address] [place] [address] Assigned Heart and Vascular Provider 05/28/23 Jelena David OD 3305 [facility] [place] [id number] Ophthalmology 06/15/23 Pao Joseph, VJ Personal Advocate & Liaison (PAL) Nurse 08/01/23 11/07/23 Esha Grimm PA-C [address] [place] [phone] Assigned PCP 07/16/23 Valery Veronica PA-C 9 [place] [address] Physician Manufacturing Area Manager Dermatology 09/19/23 Rey Tay MD 9 [place], [place] 537875 MD Gastroenterology 09/20/23 Rocky Zepeda DO [address] [place] [address] 543945 Physician Gastroenterology 09/20/23 Philip Dumont MD [address] [place] [address] 301565 Physician Ophthalmology 09/22/23 Meredith Carrera PA-C 9 [place], [place] 117985 Assigned Gastroenterology Provider 11/01/23 Neil Kent MD [address] [address] Dermatology 11/02/23 [place] [address] [address] [facility] [place], [place] [address] Neurological Surgery 12/26/23 Audrey Waite PA-C [address] [place] [address] Physician Manufacturing Area Manager Dermatology 02/28/24 Valery Veronica PA-C [address] [place] [address] Physician Manufacturing Area Manager Dermatology 04/10/24 Herminia Hatch MD [address] [place] [address] Assigned Rheumatology Provider 07/02/24 documented as of this encounter
--- OUTSIDE RECORDS SUMMARY | 2024-07-22 22:43 | XMS_ITS | Encounter Summary ---
Author Organization [facility] Address [address] [place] [address] Care Team Providers Care Physical Optics Teacher Name Role Phone Diana Desir [facility] Unavailable Rain Galaviz PA-C Unavailable Tavia Wyatt MD Unavailable Erica Farrell APRN WELDING ESTIMATOR Unavailable Rich Barrett MD Unavailable [phone] Neil Kent MD Unavailable Diana Desir [facility] Unavailable Livan Sharif MD Unavailable Catherine Cm MD Unavailable + Valery Veronica PA-C Unavailable Brea Quinn BORING MACHINE OPERATOR HORIZONTAL WELDING ESTIMATOR Unavailable Brea Quinn BORING MACHINE OPERATOR HORIZONTAL WELDING ESTIMATOR Unavailable Jose Francisco Johnson MD Unavailable Alfonso Renteria MD Unavailable [phone] Esha Grimm PA-C Primary Care Provider [phone] Radha Lomeli APRN WELDING ESTIMATOR Unavailable Jelena David OD Unavailable [phone] Pao Joseph RN Unavailable Unavailable Esha Grimm PA-C Unavailable Valery Veronica PA-C Unavailable [phone] Rey Tay MD Unavailable Rocky Zepeda DO Unavailable Philip Dumont MD Unavailable [phone] Meredith Carrera PA-C Unavailable [phone] Neil Kent MD Unavailable Juan Pablo Emmanuel MD Unavailable [phone] Audrey Waite PA-C Unavailable [phone] Valery Veronica PA-C Unavailable Herminia Hatch MD Unavailable Encounter Details Date Type Department Care Team (Late st Contact Info) Description 09/08/2023 [facility] Medical Advice [facility] [address] [address] Marija Polanco RN Social [...] you attend [facility] or [facility]? 1 to 4 [...] exercise at this level? 30 min 03/10/2023 [place] Depression Scale Answer Date Recorded [place] Depression Score 5 01/14/2021 Last EPDS Self [...] CDT Legal Sex Female 4:13 AM SENIOR OUTSIDE SALES REPRESENTATIVE Gender Identity Female 03/02/2021 5:45 PM CDT Sexual Orientation Straight 02/28/2020 12 :51 AM CDT documented as of this encounter Plan of Treatment Upcoming Encounters Date Type Department Care Team (Late st Contact Info) Description 10/23/2024 9:30 AM CDT Office Visit [facility] Neurology [address], [address] [place] [address] [place] [address] [place] 126[address] Johnny Penn MD [address] [place] [id number] 11/28/2024 7:45 AM CDT Virtual Visit [facility] [address] 4th [place] [address] Meredith Carrera PAUcheC [address] [place] [address] documented as of this encounter Visit Diagnoses Not on filedocumented in this encounter Additional Health Concerns Infection Onset Date Last Indicated Resolved Time Rule Out COVID-19 12/26/2023 12/26/2023 12/26/2023 9:50 AM CDT Rule Out COVID-19 04/09/2024 04/09/2024 04/10/2024 6:48 PM CDT Assessment Noted Time PHQ-9 Depression Total Score: 4 06/20/20 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 OUTSIDE SALES REPRESENTATIVE documented as of this encounter Care Teams Physical Optics Teacher Relationship Specialty Start Date End Date Esha Grimm PA-C [address] [place] [address] PCP - General Family Medicine 05/04/23 Diana Desir, [facility] [address] [place] [address] Pharmacist Pharmacist 04/17/21 Rain Galaviz PA-C [address] [place] [address] [address] [place] [address] Physician Burrer Operator Dermatology 04/28/21 Tavia Wyatt MD [address] [place] [address] [address] [place] [address] Dermatology 07/14/21 Erica Farrell APRN WELDING ESTIMATOR [address] 4000700 [place] [address] Nurse Practitioner Cardiovascular Disease 09/09/21 Rich Barrett MD [address] [place] 17[address] Physician Ophthalmology 01/21/22 Neil Kent MD [address] [place], [place] 205935 Dermatology 02/24/22 Diana Desir, [facility] [address] [place] [address] Assigned MTM Pharmacist 04/07/22 Livan Sharif MD [address] 962715 Cardiovascular Disease 05/14/22 Catherine Cm MD [address] 802675 Cardiovascular Disease 07/21/22 Valery Veronica, PA-C [address] [place], [place] 385875 Physician Burrer Operator Dermatology 07/21/22 Brea Quinn APRN WELDING ESTIMATOR 500 [place] [address] Nurse Practitioner Dermatology 09/21/22 Brea Quinn APRN WELDING ESTIMATOR [address] [place] [address] [facility] [place] [place] 144052 Assigned Surgical Provider 10/09/22 05/01/24 [place] [address] 311677 Assigned Musculoskeletal Provider 10/09/22 05/01/24 Alfonso Renteria MD [address] [place] [address] Assigned Neuroscience Provider 04/02/23 Radha Lomeli APRN WELDING ESTIMATOR [address] [facility] [address] [place] [address] Assigned Heart and Vascular Provider 05/28/23 Jelena David OD [address] [place] [address] Ophthalmology 06/15/23 Pao Joseph, VJ Personal Advocate & Liaison (PAL) Nurse 08/01/23 11/07/23 Esha Grimm PA-C [address] [place] [address] Assigned PCP 07/16/23 Valery Veronica PA-C [address] [place] [address] 483715 Physician Burrer Operator Dermatology 09/19/23 Rey Tay MD [address] [place] [address] 662615 Gastroenterology 09/20/23 Rocky Zepeda DO [address] [place] [address] 455485 Physician Gastroenterology 09/20/23 Philip Dumont MD [address] [place] [address] Physician Ophthalmology 09/22/23 Meredith Carrera PA-C [address] [place] [address] Assigned Gastroenterology Provider 11/01/23 Neil Kent MD [address] [address] Dermatology 11/02/23 [place] [address] [address] Neurological Surgery 12/26/23 Audrey Waite PA-C [address] [place] [address] Physician Burrer Operator Dermatology 02/28/24 Valery Veronica PA-C 566484 [address], [place] [address] Physician Burrer Operator Dermatology 04/10/24 Herminia Hatch MD [facility]5 [place], [place] 78596[address] Assigned Rheumatology Provider 07/02/24 documented as of this encounter
--- OUTSIDE RECORDS SUMMARY | 2024-07-22 22:43 | XMS_ITS | Encounter Summary ---
Author Organization [facility] Address [address] [place] [address] Care Team Providers Care Fashion Styling Intern Name Role Phone Diana Desir [facility] Unavailable Rain Galaviz PA-C Unavailable [phone] Tavia Wyatt MD Unavailable Erica Farrell APRN RECOVERY COACH Unavailable Rich Barrett MD Unavailable [phone] Neil Kent MD Unavailable Diana Desir [facility] Unavailable Livan Sharif MD Unavailable Catherine Cm MD Unavailable + Valery Veronica PA-C Unavailable Brea Quinn CARPENTER REPAIR RECOVERY COACH Unavailable Brea Quinn CARPENTER REPAIR RECOVERY COACH Unavailable [phone] Jose Francisco Johnson MD Unavailable Alfonso Renteria MD Unavailable [phone] Esha Grimm PA-C Primary Care Provider Radha Lomeli APRN RECOVERY COACH Unavailable Jelena David OD Unavailable Pao Joseph RN Unavailable Unavailable Esha Grimm PA-C Unavailable [phone] Valery Veronica PA-C Unavailable [phone] Rey Tay MD Unavailable Rocky Zepeda DO Unavailable Philip Dumont MD Unavailable [phone] Meredith Carrera PA-C Unavailable [phone] Neil Kent MD Unavailable Juan Pablo Emmanuel MD Unavailable [phone] Audrey Waite PA-C Unavailable [phone] Valery Veronica PA-C Unavailable Herminia Hatch MD Unavailable Encounter Details Date Type Department Care Team (Late st Contact Info) Description 08/31/2023 [facility] Medical Advice [facility] [address] [facility] [address] [place] [address] Amalia Reyes RN Social History [...] How often do you attend ch[facility] or restoration services? 1 to 4 times [...] PHQ-2 Score 0 06/20/2023 [facility] - [...] at this level? 30 min 03/10/2023 [place] Depression Scale Answer Date Recorded [place] Depression Score 5 01/14/2021 Last EPDS [...] PM CDT Legal Sex Female 4:13 AM HELP DESK TECHNICIAN Gender Identity Female 03/02/2021 5:45 PM CDT Sexual Orientation Straight 02/28/2020 12 :51 AM CDT documented as of this encounter Plan of Treatment Upcoming Encounters Date Type Department Care Team (Late st Contact Info) Description 10/23/2024 9:30 AM CDT Office Visit [facility] Neurology [address] [place] [address] [place] [address] [address] [place] 664227 Johnny Penn MD [address] [place] 532705 11/28/2024 7:45 AM CDT Virtual Visit [facility]astroenterology Clinic [address] 4th [place] [address] Meredith Carrera PA-C 909 [place] [address] documented as of this encounter Visit Diagnoses Not on filedocumented in this encounter Additional Health Concerns Infection Onset Date Last Indicated Resolved Time Rule Out COVID-19 12/26/2023 12/26/2023 12/26/2023 9:50 AM CDT Rule Out COVID-19 04/09/2024 04/09/2024 04/10/2024 6:48 PM CDT Assessment Noted Time PHQ-9 Depression Total Score: 4 06/20/20 8:40 AM HELP DESK TECHNICIAN documented as of this encounter Care Teams Fashion Styling Intern Relationship Specialty Start Date End Date Esha Grimm PA-C [address] [place] [address] PCP - General Family Medicine 05/04/23 [facility] [address] [place] [address] Pharmacist Pharmacist 04/17/21 Rain Galaviz PA-C [address] [place] [address] [address] [place] [address] Physician Lotus Notes Developer Dermatology 04/28/21 Tavia Wyatt MD [address] [place] [address] [address] [place] [address] Dermatology 07/14/21 Erica Farrell APRN RECOVERY COACH [address] 6847500 [place] [address] Nurse Practitioner Cardiovascular Disease 09/09/21 Rich Barrett MD [address] 742915 Physician Ophthalmology 01/21/22 Neil Kent MD 500 [place], [place] 403955 Dermatology 02/24/22 Diana Desir, [facility] [address] [place] [address] Assigned MTM Pharmacist 04/07/22 Livan Sharif MD [address] 305[address] Cardiovascular Disease 05/14/22 Catherine Cm MD [address] 667375 Cardiovascular Disease 07/21/22 Valery Veronica, PA-C 909 [place], [place] 379325 Physician Lotus Notes Developer Dermatology 07/21/22 Brea Quinn APRN RECOVERY COACH 500 [place] [address] Nurse Practitioner Dermatology 09/21/22 Brea Quinn APRN RECOVERY COACH [address] [place] [address] [facility] [place] 399872 Assigned Surgical Provider 10/09/22 05/01/24 [place] [address] [place] [address] 111677 Assigned Musculoskeletal Provider 10/09/22 05/01/24 Alfonso Renteria MD [address] [place] [address] Assigned Neuroscience Provider 04/02/23 Radha Lomeli APRN RECOVERY COACH [address] [facility] [address] [place] [address] Assigned Heart and Vascular Provider 05/28/23 Jelena David OD [address] [place] [address] Ophthalmology 06/15/23 Pao Joseph, VJ Personal Advocate & Liaison (PAL) Nurse 08/01/23 11/07/23 Esha Grimm PA-C [address] [place] [address] Assigned PCP 07/16/23 Valery Veronica PA-C [address] [place] [address] 726255 Physician Lotus Notes Developer Dermatology 09/19/23 Rey Tay MD [address] [place] [address] 840245 Gastroenterology 09/20/23 Rocky Zepeda DO [address] [place] [address] 349735 Physician Gastroenterology 09/20/23 Philip Dumont MD [address] [place] [address] Physician Ophthalmology 09/22/23 Meredith Carrera PA-C [address] [place] [address] Assigned Gastroenterology Provider 11/01/23 Neil Kent MD [address] [place] [address] MD Dermatology 11/02/23 [place] [address] [address] [address] Neurological Surgery 12/26/23 Audrey Waite PA-C 500 [place] [address] Physician Lotus Notes Developer Dermatology 02/28/24 Valery Veronica PA-C [id number] [address] [place] [address] Physician Lotus Notes Developer Dermatology 04/10/24 Herminia Hatch MD [facility]5 [place], [place] 33638[address] Assigned Rheumatology Provider 07/02/24 documented as of this encounter
--- OUTSIDE RECORDS SUMMARY | 2024-07-22 22:43 | XMS_ITS | Encounter Summary ---
Author Organization [facility] Address [address] [place] [address] Care Team Providers Care Health And Safety Trainer Name Role Phone Diana Desir [facility] Unavailable Rain Galaviz PA-C Unavailable Tavia Wyatt MD Unavailable Erica Farrell APRN QUARTER SEAMER Unavailable Rich Barrett MD Unavailable [phone] Neil Kent MD Unavailable Diana Desir [facility] Unavailable Livan Sharif MD Unavailable Catherine Cm MD Unavailable + Valery Veronica PA-C Unavailable [phone] Brea Quinn TECHNOLOGY SALES REPRESENTATIVE QUARTER SEAMER Unavailable Brea Quinn TECHNOLOGY SALES REPRESENTATIVE QUARTER SEAMER Unavailable Jose Francisco Johnson MD Unavailable Alfonso Renteria MD Unavailable [phone] Esha Grimm PA-C Primary Care Provider Radha Lomeli APRN QUARTER SEAMER Unavailable Jelena David OD Unavailable Pao Joseph RN Unavailable Unavailable Esha Grimm PA-C Unavailable [phone] Valery Veronica PA-C Unavailable [phone] Rey Tay MD Unavailable Rocky Zepeda DO Unavailable Philip Dumont MD Unavailable [phone] Meredith Carrera PA-C Unavailable [phone] Neil Kent MD Unavailable Juan Pablo Emmanuel MD Unavailable [phone] Audrey Waite PA-C Unavailable [phone] Valery Veronica PA-C Unavailable [phone] Herminia Hatch MD Unavailable Encounter Details Date Type Department Care Team (Late st Contact Info) Description 08/25/2023 [facility] Medical Advice [facility] Gastroenterology Clinic [address] [address] Marija Polanco RN Social History [...] you attend [facility] or [facility]? 1 to 4 times [...] exercise at this level? 30 min 03/10/2023 [place] Depression Scale Answer Date Recorded [place] Depression Score 5 01/14/2021 Last EPDS Self [...] PM CDT Legal Sex Female 4:13 AM MAJOR DONOR COORDINATOR Gender Identity Female 03/02/2021 5:45 PM CDT Sexual Orientation Straight 02/28/2020 12 :51 AM CDT documented as of this encounter Plan of Treatment Upcoming Encounters Date Type Department Care Team (Late st Contact Info) Description 10/23/2024 9:30 AM CDT Office Visit [facility] Neurology [address], [address] [place] [address] [place] [address] [place] 415367 Johnny Penn MD [address] [place] 023745 11/28/2024 7:45 AM CDT Virtual Visit [facility] Gastroenterology Clinic [address] 4th [place] [address] Meredith Carrera PAUcheC 909 [place] [address] documented as of this encounter Visit Diagnoses Not on filedocumented in this encounter Additional Health Concerns Infection Onset Date Last Indicated Resolved Time Rule Out COVID-19 12/26/2023 12/26/2023 12/26/2023 9:50 AM CDT Rule Out COVID-19 04/09/2024 04/09/2024 04/10/2024 6:48 PM CDT Assessment Noted Time PHQ-9 Depression Total Score: 4 06/20/20 8:40 AM MAJOR DONOR COORDINATOR documented as of this encounter Care Teams Health And Safety Trainer Relationship Specialty Start Date End Date Esha Grimm PA-C [address] [place] [address] PCP - General Family Medicine 05/04/23 Diana Desir, [facility] [address] [place] [address] Pharmacist Pharmacist 04/17/21 Rain Galaviz PA-C [address] [place] [address] [address] [place] [address] Physician Veterinarian Laboratory Animal Care Dermatology 04/28/21 Tavia Wyatt MD [address] [place] [address] [address] [place] [address] Dermatology 07/14/21 Erica Farrell APRN QUARTER SEAMER [address] 5118000 [place] [address] Nurse Practitioner Cardiovascular Disease 09/09/21 Rich Barrett MD [address] [place] [place] 7[address]25 Physician Ophthalmology 01/21/22 Neil Kent MD 500 [place], [place] 033305 Dermatology 02/24/22 Diana Desir, [facility] [address] [place] [address] Assigned MTM Pharmacist 04/07/22 Livan Sharif MD [address] 229935 Cardiovascular Disease 05/14/22 Catherine Cm MD [address] 714195 Cardiovascular Disease 07/21/22 Valery Veronica, PA-C 909 [place], [place] 223565 Physician Veterinarian Laboratory Animal Care Dermatology 07/21/22 Brea Quinn APRN QUARTER SEAMER 500 [place] [address] Nurse Practitioner Dermatology 09/21/22 Brea Quinn APRN QUARTER SEAMER [address] [place] [address] [facility] 597[place] Assigned Surgical Provider 10/09/22 05/01/24 [place] [address] 612037 Assigned Musculoskeletal Provider 10/09/22 05/01/24 Alfonso Renteria MD [address] [place] [address] Assigned Neuroscience Provider 04/02/23 Radha Lomeli APRN QUARTER SEAMER [address] [facility] [address] [place] [address] Assigned Heart and Vascular Provider 05/28/23 Jelena David OD [address] [place] [address] Ophthalmology 06/15/23 Pao Joseph, VJ Personal Advocate & Liaison (PAL) Nurse 08/01/23 11/07/23 Esha Grimm PA-C [address] [place] [address] Assigned PCP 07/16/23 Valery Veronica PA-C [address] [place] [address] 666125 Physician Veterinarian Laboratory Animal Care Dermatology 09/19/23 Rey Tay MD [address] [place] [address] 597515 Gastroenterology 09/20/23 Rocky Zepeda DO [address] [place] [address] 845315 Physician Gastroenterology 09/20/23 Philip Dumont MD [address] [place] [address] Physician Ophthalmology 09/22/23 Meredith Carrera PA-C [address] [place] [address] Assigned Gastroenterology Provider 11/01/23 Neil Kent MD [address] [address] Dermatology 11/02/23 [place] [address] [address] Neurological Surgery 12/26/23 Audrey Waite PA-C [address] [place] [address] Physician Veterinarian Laboratory Animal Care Dermatology 02/28/24 Valery Veronica PA-C 510529 [address], [place] [address] Physician Veterinarian Laboratory Animal Care Dermatology 04/10/24 Herminia Hatch MD [facility]5 [place], [place] 57450125 Assigned Rheumatology Provider 07/02/24 documented as of this encounter
--- OUTSIDE RECORDS SUMMARY | 2024-07-22 22:43 | XMS_ITS | Encounter Summary ---
Author Organization [facility] Address [address] [place] [address] Care Team Providers Care Triage Technician Name Role Phone Diana Desir [facility] Unavailable Rain Galaviz PA-C Unavailable [phone] Tavia Wyatt MD Unavailable Erica Farrell APRN BACK SHOE OPERATOR Unavailable Rich Barrett MD Unavailable [phone] Neil Kent MD Unavailable Diana Desir [facility] Unavailable [phone] Livan Sharif MD Unavailable Catherine Cm MD Unavailable + Valery Veronica PA-C Unavailable [phone] Brea Quinn STRAND GALVANIZER BACK SHOE OPERATOR Unavailable Brea Quinn STRAND GALVANIZER BACK SHOE OPERATOR Unavailable Jose Francisco Johnson MD Unavailable Alfonso Renteria MD Unavailable [phone] Esha Grimm PA-C Primary Care Provider [phone] Radha Lomeli APRN BACK SHOE OPERATOR Unavailable Jelena David OD Unavailable Pao Joseph RN Unavailable Unavailable Esha Grimm PA-C Unavailable [phone] Valery Veronica PA-C Unavailable Rey Tay MD Unavailable Rocky Zepeda DO Unavailable Philip Dumont MD Unavailable [phone] Meredith Carrera PA-C Unavailable [phone] Neil Kent MD Unavailable Juan Pablo Emmanuel MD Unavailable Audrey Waite PA-C Unavailable [phone] Valery Veronica PA-C Unavailable Herminia Hatch MD Unavailable Reason for Visit * Reason Onset Date Comments Outreach 08/01/2023 Encounter Details Date Type Department Care Team (Late st Contact Info) Description 08/01/2023 [facility] Advice [facility] [address] [place] [address] Esha Grimm PA-C [id number] [place] [address] Outreach Social History Tobacco Use Types [...] Score 0 06/20/2023 [facility] [...] PM CDT Legal Sex Female 4:13 AM MECHANICAL ENGINEERING LECTURER Gender Identity Female 03/02/2021 5:45 PM CDT Sexual Orientation Straight 02/28/2020 12 :51 AM CDT documented as of this encounter Miscellaneous Notes * Telephone Encounter - Pao Joseph RN - 08/01/2023 2:31 PM CST Esha Grimm PA-C- ANGEL LUIS. See pt's Mychart messages. Routed to PCP Pao Marcos RN PAL (Patient Advocate Liaison) [facility] ANICAL ENGINEERING LECTURER documented in this encounter Plan of Treatment Upcoming Encounters Date Type Department Care Team (Late st Contact Info) Description 10/23/2024 9:30 AM CDT Office Visit [facility] Neurology [facility] - [address], [address] [place] [phone] [place] [address] [place], [place] [phone] Johnny Penn MD [address] [place], [place] [phone] 11/28/2024 7:45 AM CDT Virtual Visit [facility] [address] 4th [place] [address] Meredith Carrera PA-C [address] [place] [address] 733945 documented as of this encounter Visit Diagnoses Not on filedocumented in this encounter Additional Health Concerns Infection Onset Date Last Indicated Resolved Time Rule Out COVID-19 12/26/2023 12/26/2023 12/26/2023 9:50 AM CDT Rule Out COVID-19 04/09/2024 04/09/2024 04/10/2024 6:48 PM CDT Assessment Noted Time PHQ-9 Depression Total Score: 4 06/20/20 23 8:40 AM MECHANICAL ENGINEERING LECTURER documented as of this encounter Care Teams Triage Technician Relationship Specialty Start Date End Date Esha Grimm PA-C [address] [place] [phone] PCP - General Family Medicine 05/04/23 Diana Desir, [facility] [address] [place], [place] [address] Pharmacist Pharmacist 04/17/21 Rain Galaviz PA-C [address] [place] [address] [address] [facility] [place] [id number] Physician Coin Machine Supervisor Dermatology 04/28/21 Tavia Wyatt MD [address] [place] [address] DR [address] [facility] [place] [id number] Dermatology 07/14/21 Erica Farrell APRN BACK SHOE OPERATOR [address] [place], [place] [address] Nurse Practitioner Cardiovascular Disease 09/09/21 Rich Barrett MD [address] [address] Physician Ophthalmology 01/21/22 Neil Kent MD [address] [place] [address] 207555 Dermatology 02/24/22 Dinaa Desir, [facility] 3033 [place], [place] 543806 Assigned [place] Pharmacist 04/07/22 Livan Sharif MD [address] [place] [address] [place] [address]145 Cardiovascular Disease 05/14/22 Catherine Cm MD [address] [place] [address] [place] 323495 Cardiovascular Disease 07/21/22 Valery Veronica, PA-C [address] [place] [address] 733475 Physician Coin Machine Supervisor Dermatology 07/21/22 Brea Quinn APRN BACK SHOE OPERATOR 500 [place], [place] 704075 Nurse Practitioner Dermatology 09/21/22 Brea Quinn APRN BACK SHOE OPERATOR 6401 [place] [address] Assigned Surgical Provider 10/09/22 05/01/24 [place] [address] [address] Assigned Musculoskeletal Provider 10/09/22 05/01/24 Alfonso Renteria MD [address] 806876 Assigned Neuroscience Provider 04/02/23 Radha Lomeli APRN BACK SHOE OPERATOR [address] [address] Assigned Heart and Vascular Provider 05/28/23 Jelena David OD [address] [facility] [place] [address] Ophthalmology 06/15/23 Pao Joseph, VJ Personal Advocate & Liaison (PAL) Nurse 08/01/23 11/07/23 Esha Grimm PA-C [address] [place] [phone] Assigned PCP 07/16/23 Valery Veronica PA-C [address] [place] [address] Physician Coin Machine Supervisor Dermatology 09/19/23 Rey Tay MD 9 [place] [address] MD Gastroenterology 09/20/23 Rocky Zepeda DO 500 [place] [address] Physician Gastroenterology 09/20/23 Philip Dumont MD 6 [place] [address] Physician Ophthalmology 09/22/23 Meredith Carrera PA-C 9 [place] [address] Assigned Gastroenterology Provider 11/01/23 Neil Kent MD [address] 299[address] Dermatology 11/02/23 [place] [address] [address] Neurological Surgery 12/26/23 Audrey Waite PA-C 500 [place] [address] Physician Coin Machine Supervisor Dermatology 02/28/24 Valery Veronica PA-C [id number] [place], [place] [address] Physician Coin Machine Supervisor Dermatology 04/10/24 Herminia Hatch MD [address] [place] [address] Assigned Rheumatology Provider 07/02/24 documented as of this encounter
--- OUTSIDE RECORDS SUMMARY | 2024-07-22 22:43 | XMS_ITS | Encounter Summary ---
Author Organization [facility] Address [address] [place] [address] Care Team Providers Care Senior Caregiver Name Role Phone Diana Desir [facility] Unavailable Rain Galaviz PA-C Unavailable [phone] Tavia Wyatt MD Unavailable Erica Farrell APRN TOP LIFT COMPRESSER Unavailable Rich Barrett MD Unavailable [phone] Neil Kent MD Unavailable Diana Desir [facility] Unavailable Livan Sharif MD Unavailable Catherine Cm MD Unavailable + Valery Veronica PA-C Unavailable Brea Quinn MANUFACTURING INSPECTOR TOP LIFT COMPRESSER Unavailable Brea Quinn MANUFACTURING INSPECTOR TOP LIFT COMPRESSER Unavailable Jose Francisco Johnson MD Unavailable Alfonso Renteria MD Unavailable [phone] Esha Grimm PA-C Primary Care Provider [phone] Radha Lomeli APRN TOP LIFT COMPRESSER Unavailable Jelena David OD Unavailable Pao Joseph RN Unavailable Unavailable Esha Grimm PA-C Unavailable [phone] Valery Veronica PA-C Unavailable [phone] Rey Tay MD Unavailable Rocky Zepeda DO Unavailable Philip Dumont MD Unavailable [phone] Meredith Carrera PA-C Unavailable [phone] Neil Kent MD Unavailable Juan Pablo Emmanuel MD Unavailable [phone] Audrey Waite PA-C Unavailable [phone] Valery Veronica PA-C Unavailable [phone] Herminia Hatch MD Unavailable Encounter Details Date Type Department Care Team (Late st Contact Info) Description 08/04/2023 [facility] [place] [place] [facility] [address] [address] [facility] 30[address] [place] [address] Social History Tobacco Use Types Packs/Day Years [...] you attend [facility] or buddhist services? 1 to 4 times [...] Answer Date Recorded PHQ-2 Score 0 06/20/2023 [facility] - Occupational Stress Questionnaire [...] exercise at this level? 30 min 03/10/2023 [place] Depression Scale Answer Date Recorded [place] Depression Score 5 01/14/2021 Last EPDS Self [...] PM CDT Legal Sex Female 4:13 AM BUSINESS SERVICES ASSOCIATE Gender Identity Female 03/02/2021 5:45 PM CDT Sexual Orientation Straight 02/28/2020 12 :51 AM CDT documented as of this encounter Plan of Treatment Upcoming Encounters Date Type Department Care Team (Late st Contact Info) Description 10/23/2024 9:30 AM CDT Office Visit [facility] Neurology [address], [address] [place] [address] [place] [address] [facility] [place] [address] Johnny Penn MD [address] [place] 266535 11/28/2024 7:45 AM CDT Virtual Visit [facility] Gastroenterology Clinic [address] [place] [phone] Meredith Carrera PA-C [address] [place] [address] documented as of this encounter Visit Diagnoses Not on filedocumented in this encounter Additional Health Concerns Infection Onset Date Last Indicated Resolved Time Rule Out COVID-19 12/26/2023 12/26/2023 12/26/2023 9:50 AM CDT Rule Out COVID-19 04/09/2024 04/09/2024 04/10/2024 6:48 PM CDT Assessment Noted Time PHQ-9 Depression Total Score: 4 06/20/20 23 8:40 AM BUSINESS SERVICES ASSOCIATE documented as of this encounter Care Teams Senior Caregiver Relationship Specialty Start Date End Date Esha Grimm PA-C [address] [place] [phone] PCP - General Family Medicine 05/04/23 Diana Desir, [facility] [address] [place], [place] 457[address] Pharmacist Pharmacist 04/17/21 Rain Galaviz PA-C [address] [place] [address] [place] [address] Physician Wireless Development Manager Dermatology 04/28/21 Tavia Wyatt MD [address] [place] [address] [place] [address] Dermatology 07/14/21 Erica Farrell APRN TOP LIFT COMPRESSER 6405 [facility] [address] [place] [address] Nurse Practitioner Cardiovascular Disease 09/09/21 Rich Barrett MD 516 [facility] [place], [place] [address] Physician Ophthalmology 01/21/22 Neil Kent MD 500 [place], [place] [address]15 Dermatology 02/24/22 Diana Desir, [facility] 30[address] [place], [place] 397056 Assigned MTM Pharmacist 04/07/22 Livan Sharif MD [address] [place] 815025 Cardiovascular Disease 05/14/22 Catherine Cm MD [address] [facility] [address] [place] 424395 Cardiovascular Disease 07/21/22 Valery Veronica, PA-C 909 [place], [place] 484995 Physician Wireless Development Manager Dermatology 07/21/22 Brea Quinn APRN TOP LIFT COMPRESSER 500 [place], [place] 049225 Nurse Practitioner Dermatology 09/21/22 Brea Quinn APRN TOP LIFT COMPRESSER 6401 [place] [address] Assigned Surgical Provider 10/09/22 05/01/24 [place] [address] [address] [place] [address] Assigned Musculoskeletal Provider 10/09/22 05/01/24 Alfonso Renteria MD [address] [facility] 200 [place], [place] 095806 Assigned Neuroscience Provider 04/02/23 Radha Lomeli, [place] TOP LIFT COMPRESSER 6[address] [facility] [address] [place] 227855 Assigned Heart and Vascular Provider 05/28/23 Jelena David OD [address] [facility] [place] [address] Ophthalmology 06/15/23 Pao Joseph, VJ Personal Advocate & Liaison (PAL) Nurse 08/01/23 11/07/23 Esha Grimm PA-C [address] [place] [address] Assigned PCP 07/16/23 Valery Veronica PA-C [address] [place] [address] 475085 Physician Wireless Development Manager Dermatology 09/19/23 Rey Tay MD [address] [place] [address] 936965 Gastroenterology 09/20/23 Rocky Zepeda DO [address] [place] [address] 284445 Physician Gastroenterology 09/20/23 Philip Dumont MD 516 [place] [address] Physician Ophthalmology 09/22/23 Meredith Carrera PA-C [address] [place] [address] Assigned Gastroenterology Provider 11/01/23 Neil Kent MD [address] 081910 MD Dermatology 11/02/23 [place] [address] 066577 Neurological Surgery 12/26/23 Audrey Waite PA-C [address] [place] [address] 194265 Physician Wireless Development Manager Dermatology 02/28/24 Valery Veronica PA-C 019032 99 [place] [address] Physician Wireless Development Manager Dermatology 04/10/24 Herminia Hatch MD 1875 [place] [address] Assigned Rheumatology Provider 07/02/24 documented as of this encounter
--- OUTSIDE RECORDS SUMMARY | 2024-07-22 22:43 | XMS_ITS | Encounter Summary ---
Author Organization [facility] Address [address] [place] [address] Care Team Providers Care Sueding Machine Operator Name Role Phone Diana Desir [facility] Unavailable [phone] Rain Galaviz PA-C Unavailable [phone] Tavia Wyatt MD Unavailable Erica Farrell APRN NUTRITION SPECIALIST Unavailable Rich Barrett MD Unavailable [phone] Neil Kent MD Unavailable Diana Desir [facility] Unavailable Livan Sharif MD Unavailable Catherine Cm MD Unavailable + Valery Veronica PA-C Unavailable [phone] Brea Quinn RADIOSONDE OPERATOR NUTRITION SPECIALIST Unavailable Brea Quinn RADIOSONDE OPERATOR NUTRITION SPECIALIST Unavailable Jose Francisco Johnson MD Unavailable Alfonso Renteria MD Unavailable [phone] Esha Grimm PA-C Primary Care Provider [phone] Radha Lomeli APRN NUTRITION SPECIALIST Unavailable Jelena David OD Unavailable [phone] Pao Joseph RN Unavailable Unavailable Esha Grimm PA-C Unavailable [phone] Valery Veronica PA-C Unavailable [phone] Rey Tay MD Unavailable Rocky Zepeda DO Unavailable Philip Dumont MD Unavailable [phone] Meredith Carrera PA-C Unavailable [phone] Neil Kent MD Unavailable Juan Pablo Emmanuel MD Unavailable [phone] Audrey Waite PA-C Unavailable [phone] Valery Veronica PA-C Unavailable Herminia Hatch MD Unavailable Encounter Details Date Type Department Care Team (Late st Contact Info) Description 08/25/2023 [facility] [address] [address] Marija Polanco RN Social History [...] do you attend [facility] or alevism services? 1 to 4 times [...] Score 0 06/20/2023 [facility] ional Health [...] exercise at this level? 30 min 03/10/2023 [place] Depression Scale Answer Date Recorded [place] Depression Score 5 01/14/2021 Last EPDS Self [...] PM CDT Legal Sex Female 4:13 AM SHRIMP PEELING MACHINE OPERATOR Gender Identity Female 03/02/2021 5:45 PM CDT Sexual Orientation Straight 02/28/2020 12 :51 AM CDT documented as of this encounter Plan of Treatment Upcoming Encounters Date Type Department Care Team (Late st Contact Info) Description 10/23/2024 9:30 AM CDT Office Visit [facility] Neurology [address], [address] [place] [address] [place] [address] [place] [address] Johnny Penn MD [address] [place] 677005 11/28/2024 7:45 AM CDT Virtual Visit [facility] [address] 4th [place] [address] Meredith Carrera PAUcheC 909 [place] [address] documented as of this encounter Visit Diagnoses Not on filedocumented in this encounter Additional Health Concerns Infection Onset Date Last Indicated Resolved Time Rule Out COVID-19 12/26/2023 12/26/2023 12/26/2023 9:50 AM CDT Rule Out COVID-19 04/09/2024 04/09/2024 04/10/2024 6:48 PM CDT Assessment Noted Time PHQ-9 Depression Total Score: 4 06/20/20 8:40 AM SHRIMP PEELING MACHINE OPERATOR documented as of this encounter Care Teams Sueding Machine Operator Relationship Specialty Start Date End Date Esha Grimm PA-C [address] [place] [address] PCP - General Family Medicine 05/04/23 Diana Desir, [facility] 3033 [place] [address] Pharmacist Pharmacist 04/17/21 Rain Galaviz PA-C [address] [place] [address] [address] [place] [address] Physician Livestock Showman Dermatology 04/28/21 Tavia Wyatt MD [address] [place] [address] [address] [place] [address] Dermatology 07/14/21 Erica Farrell APRN NUTRITION SPECIALIST [address] [place] [id number] [place] [address] Nurse Practitioner Cardiovascular Disease 09/09/21 Rich Barrett MD [address] [place] 756425 Physician Ophthalmology 01/21/22 Neil Kent MD 500 [place], [place] 425025 Dermatology 02/24/22 Diana Desir, [facility] 3033 [place] [address] Assigned MTM Pharmacist 04/07/22 Livan Sharif MD [address] 717255 Cardiovascular Disease 05/14/22 Catherine Cm MD [address] 401775 Cardiovascular Disease 07/21/22 Valery Veronica, PA-C 909 [place], [place] 390835 Physician Livestock Showman Dermatology 07/21/22 Brea Quinn APRN NUTRITION SPECIALIST 500 [place] [address] Nurse Practitioner Dermatology 09/21/22 Brea Quinn APRN NUTRITION SPECIALIST [address] [place] [address] [facility] [place] 69[address]82 Assigned Surgical Provider 10/09/22 05/01/24 [place] [address] 173417 Assigned Musculoskeletal Provider 10/09/22 05/01/24 Alfonso Renteria MD [address] [place] [address] Assigned Neuroscience Provider 04/02/23 Radha Lomeli APRN NUTRITION SPECIALIST 6[address] [facility] [address] [place] [address] Assigned Heart and Vascular Provider 05/28/23 Jelena David OD [address] [facility] [place] [address] Ophthalmology 06/15/23 Pao Joseph, VJ Personal Advocate & Liaison (PAL) Nurse 08/01/23 11/07/23 Esha Grimm PA-C [address] [place] [address] Assigned PCP 07/16/23 Valery Veronica PA-C [address] [place] [address] 527315 Physician Livestock Showman Dermatology 09/19/23 Rey Tay MD [address] [place] [address] 478505 Gastroenterology 09/20/23 Rocky Zepeda DO [address] [place] [address] 144685 Physician Gastroenterology 09/20/23 Philip Dumont MD [address] [place] [address] Physician Ophthalmology 09/22/23 Meredith Carrera PA-C [address] [place] [address] Assigned Gastroenterology Provider 11/01/23 Neil Kent MD [address] [address] Dermatology 11/02/23 [place] [address] [address] Neurological Surgery 12/26/23 Audrey Waite PA-C [address] [place] [address] Physician Livestock Showman Dermatology 02/28/24 Valery Veronica PA-C 060184 [place], [place] [address] Physician Livestock Showman Dermatology 04/10/24 Herminia Hatch MD [facility]5 [place], [place] 23276125 Assigned Rheumatology Provider 07/02/24 documented as of this encounter
--- OUTSIDE RECORDS SUMMARY | 2024-07-22 22:43 | XMS_ITS | Encounter Summary ---
Author Organization [facility] Address [address] [place] [address] Care Team Providers Care Ton Container Shipper Name Role Phone Diana Desir [facility] Unavailable Rain Galaviz PA-C Unavailable Tavia Wyatt MD Unavailable Erica Farrell APRN WHOLESALE REPRESENTATIVE Unavailable Rich Barrett MD Unavailable [phone] Neil Kent MD Unavailable Diana Desir [facility] Unavailable Livan Sharif MD Unavailable Catherine Cm MD Unavailable + Valery Veronica PA-C Unavailable Brea Quinn RN ORTHO WHOLESALE REPRESENTATIVE Unavailable Brea Quinn RN ORTHO WHOLESALE REPRESENTATIVE Unavailable Jose Francisco Johnson MD Unavailable Alfonso Renteria MD Unavailable [phone] Esha Grimm PA-C Primary Care Provider Radha Lomeli APRN WHOLESALE REPRESENTATIVE Unavailable Jelena David OD Unavailable Pao Joseph RN Unavailable Unavailable Esha Grimm PA-C Unavailable [phone] Valery Veronica PA-C Unavailable Rey Tay MD Unavailable Rocky Zepeda DO Unavailable Philip Dumont MD Unavailable [phone] Meredith Carrera PA-C Unavailable [phone] Neil Kent MD Unavailable Juan Pablo Emmanuel MD Unavailable [phone] Audrey Waite PA-C Unavailable [phone] Valery Veronica PA-C Unavailable Herminia Hatch MD Unavailable Encounter Details Date Type Department Care Team (Late st Contact Info) Description 09/01/2023 [facility] [address] [address] [facility] [address] [place] [address] Social History Tobacco Use Types Packs/Day Years [...] you attend [facility] or taoism services? 1 to 4 [...] Date Recorded PHQ-2 Score 0 06/20/2023 [facility] [...] exercise at this level? 30 min 03/10/2023 [place] Depression Scale Answer Date Recorded [place] Depression Score 5 01/14/2021 Last EPDS Self [...] PM CDT Legal Sex Female 4:13 AM PRESSER HAND Gender Identity Female 03/02/2021 5:45 PM CDT Sexual Orientation Straight 02/28/2020 12 :51 AM CDT documented as of this encounter Plan of Treatment Upcoming Encounters Date Type Department Care Team (Late st Contact Info) Description 10/23/2024 9:30 AM CDT Office Visit [facility] Neurology [address], [address] [place] [address] [place] [address] [address] Johnny Penn MD [address] [place] [id number] 11/28/2024 7:45 AM CDT Virtual Visit [facility] Gastroenterology Clinic [address] [place] [phone] Meredith Carrera PA-C [address] [place] [address] documented as of this encounter Visit Diagnoses Not on filedocumented in this encounter Additional Health Concerns Infection Onset Date Last Indicated Resolved Time Rule Out COVID-19 12/26/2023 12/26/2023 12/26/2023 9:50 AM CDT Rule Out COVID-19 04/09/2024 04/09/2024 04/10/2024 6:48 PM CDT Assessment Noted Time PHQ-9 Depression Total Score: 4 06/20/20 23 8:40 AM PRESSER HAND documented as of this encounter Care Teams Ton Container Shipper Relationship Specialty Start Date End Date Esha Grimm PA-C [address] [place] [address] PCP - General Family Medicine 05/04/23 Diana Desir, [facility] [address] [place], [place] 7[address] Pharmacist Pharmacist 04/17/21 Rain Galaviz PA-C [address] [place] [address] [place] [address] Physician Switch House Operator Dermatology 04/28/21 Tavia Wyatt MD [address] [place] [address] [place] [address] Dermatology 07/14/21 Erica Farrell APRN WHOLESALE REPRESENTATIVE 6405 [facility] [address] [place] [address] Nurse Practitioner Cardiovascular Disease 09/09/21 Rich Barrett MD 516 [facility]IN[facility] 9A [place], [place] 494015 Physician Ophthalmology 01/21/22 Neil Kent MD 500 [place], [place] 750325 Dermatology 02/24/22 Diana Desir, [facility] [address] [place], [place] 665776 Assigned MTM Pharmacist 04/07/22 Livan Sharif MD [address] [place] 437645 Cardiovascular Disease 05/14/22 Catherine Cm MD [address] [facility] [address] [place] 885915 Cardiovascular Disease 07/21/22 Valery Veronica, PA-C 909 [place], [place] 266765 Physician Switch House Operator Dermatology 07/21/22 Brea Quinn APRN WHOLESALE REPRESENTATIVE 500 [place], [place] 575805 Nurse Practitioner Dermatology 09/21/22 Brea Quinn APRN WHOLESALE REPRESENTATIVE 6401 [facility] [place] [address] Assigned Surgical Provider 10/09/22 05/01/24 [place] [address] [address] [place] [address] Assigned Musculoskeletal Provider 10/09/22 05/01/24 Alfonso Renteria MD [address] [facility] 200 [place], [place] 789646 Assigned Neuroscience Provider 04/02/23 Radha Lomeli, ARLENE WHOLESALE REPRESENTATIVE 6405 [facility] [address] [place] 137245 Assigned Heart and Vascular Provider 05/28/23 Jelena David OD 3[address] [facility] [address] Ophthalmology 06/15/23 Pao Joseph, VJ Personal Advocate & Liaison (PAL) Nurse 08/01/23 11/07/23 Esha Grimm PA-C [address] [place] [address] Assigned PCP 07/16/23 Valery Veronica PA-C [address] [place] [address] 792065 Physician Switch House Operator Dermatology 09/19/23 Rey Tay MD [address] [place] [address] 588895 Gastroenterology 09/20/23 Rocky Zepeda DO [address] [place] [address] 476895 Physician Gastroenterology 09/20/23 Philip Dumont MD 516 [place] [address] Physician Ophthalmology 09/22/23 Meredith Carrera PA-C [address] [place] [address] Assigned Gastroenterology Provider 11/01/23 Neil Kent MD [address] [id number] MD Dermatology 11/02/23 [place] [address] [place] [address] 741247 Neurological Surgery 12/26/23 Audrey Waite PA-C [address] [place] [address] 211415 Physician Switch House Operator Dermatology 02/28/24 Valery Veronica PA-C 944114 [address] [place] [address] Physician Switch House Operator Dermatology 04/10/24 Herminia Hatch MD 1875 [place] [address] Assigned Rheumatology Provider 07/02/24 documented as of this encounter
--- OUTSIDE RECORDS SUMMARY | 2024-07-22 22:43 | XMS_ITS | Encounter Summary ---
Author Organization [facility] Address [address] [place] [address] Care Team Providers Care Correctional Food Service Supervisor Name Role Phone Diana Desir [facility] Unavailable Rain Galaviz PA-C Unavailable Tavia Wyatt MD Unavailable Erica Farrell APRN MIXER OPERATOR Unavailable Rich Barrett MD Unavailable [phone] Neil Kent MD Unavailable Diana Desir [facility] Unavailable Livan Sharif MD Unavailable Catherine Cm MD Unavailable + Valery Veronica PA-C Unavailable Brea Quinn WAGE ANALYST MIXER OPERATOR Unavailable Brea Quinn WAGE ANALYST MIXER OPERATOR Unavailable Jose Francisco Johnson MD Unavailable Alfonso Renteria MD Unavailable [phone] Esha Grimm PA-C Primary Care Provider Radha Lomeli APRN MIXER OPERATOR Unavailable Jelena David OD Unavailable Pao Joseph RN Unavailable Unavailable Esha Grimm PA-C Unavailable [phone] Valery Veronica PA-C Unavailable Rey Tay MD Unavailable Rocky Zepeda DO Unavailable Philip Dumont MD Unavailable [phone] Meredith Carrera PA-C Unavailable [phone] Neil Kent MD Unavailable Juan Pablo Emmanuel MD Unavailable [phone] Audrey Waite PA-C Unavailable [phone] Valery Veronica PA-C Unavailable Herminia Hatch MD Unavailable Encounter Details Date Type Department Care Team (Late st Contact Info) Description 08/25/2023 [facility] [address] [address] [facility] [address] [place] [address] Social History Tobacco Use Types Packs/Day Years [...] you attend [facility] or gnosticism services? 1 to 4 [...] Score 0 06/20/2023 [facility] [...] exercise at this level? 30 min 03/10/2023 [place] Depression Scale Answer Date Recorded [place] Depression Score 5 01/14/2021 Last EPDS [...] PM CDT Legal Sex Female 4:13 AM PROBATE CLERK Gender Identity Female 03/02/2021 5:45 PM CDT Sexual Orientation Straight 02/28/2020 12 :51 AM CDT documented as of this encounter Plan of Treatment Upcoming Encounters Date Type Department Care Team (Late st Contact Info) Description 10/23/2024 9:30 AM CDT Office Visit [facility] Neurology [address], [address] [place] [address] [place] [address] [place] [address] Johnny Penn MD [address] [place] 514[address] 11/28/2024 7:45 AM CDT Virtual Visit [facility] Gastroenterology Clinic [address] [place] [address] Meredith Carrera PA-C [address] [place] [address] documented as of this encounter Visit Diagnoses Not on filedocumented in this encounter Additional Health Concerns Infection Onset Date Last Indicated Resolved Time Rule Out COVID-19 12/26/2023 12/26/2023 12/26/2023 9:50 AM CDT Rule Out COVID-19 04/09/2024 04/09/2024 04/10/2024 6:48 PM CDT Assessment Noted Time PHQ-9 Depression Total Score: 4 06/20/20 23 8:40 AM PROBATE CLERK documented as of this encounter Care Teams Correctional Food Service Supervisor Relationship Specialty Start Date End Date Esha Grimm PA-C [address] [place] [address] PCP - General Family Medicine 05/04/23 Diana Desir, [facility] [address] [place], [place] 178236 Pharmacist Pharmacist 04/17/21 Rain Galaviz PA-C [address] [place] [address] [place] [address] Physician Clerical Secretary Dermatology 04/28/21 Tavia Wyatt MD [address] [place] [address] [place] [address] Dermatology 07/14/21 Erica Farrell APRN MIXER OPERATOR 6405 [facility] [address] [place] [address] Nurse Practitioner Cardiovascular Disease 09/09/21 Rich Barrett MD 516 [facility], CLINIC 9A [place], [place] 797975 Physician Ophthalmology 01/21/22 Neil Kent MD 500 [place], [place] 604075 Dermatology 02/24/22 Diana Desir, [facility] 30[address] [place], [place] 662116 Assigned MTM Pharmacist 04/07/22 Livan Sharif MD [address] [place] 827405 Cardiovascular Disease 05/14/22 Catherine Cm MD [address] [facility] [address] [place] 045475 Cardiovascular Disease 07/21/22 Valery Veronica, PA-C 909 [place], [place] 178285 Physician Clerical Secretary Dermatology 07/21/22 Brea Quinn APRN MIXER OPERATOR 500 [place], [place] 300725 Nurse Practitioner Dermatology 09/21/22 Brea Quinn APRN MIXER OPERATOR 6401 [facility] [place] [address] Assigned Surgical Provider 10/09/22 05/01/24 [place] [address] [place] [address] [place] [address] Assigned Musculoskeletal Provider 10/09/22 05/01/24 Alfonso Renteria MD [address] [facility] 200 [place], [place] 282786 Assigned Neuroscience Provider 04/02/23 Radha Lomeli, ARLENE MIXER OPERATOR 6405 [facility] [address] [place] 097675 Assigned Heart and Vascular Provider 05/28/23 Jelena David OD [address] [facility] [place] [address] Ophthalmology 06/15/23 Pao Joseph, VJ Personal Advocate & Liaison (PAL) Nurse 08/01/23 11/07/23 Esha Grimm PA-C [address] [place] [address] Assigned PCP 07/16/23 Valery Veronica PA-C [address] [place] [address] 094715 Physician Clerical Secretary Dermatology 09/19/23 Rey Tay MD [address] [place] [address] 037925 Gastroenterology 09/20/23 Rocky Zepeda DO [address] [place] [address] 913545 Physician Gastroenterology 09/20/23 Philip Dumont MD 516 [place] [address] Physician Ophthalmology 09/22/23 Meredith Carrera PA-C [address] [place] [address] Assigned Gastroenterology Provider 11/01/23 Neil Kent MD [address] 1919[address] MD Dermatology 11/02/23 [place] [address] [place] [address] 381327 Neurological Surgery 12/26/23 Audrey Waite PA-C [address] [place] [address] 031675 Physician Clerical Secretary Dermatology 02/28/24 Valery Veronica PA-C [id number] 99 [place] [address] Physician Clerical Secretary Dermatology 04/10/24 Herminia Hatch MD 1875 [place] [address] Assigned Rheumatology Provider 07/02/24 documented as of this encounter
--- OUTSIDE RECORDS SUMMARY | 2024-07-22 22:43 | XMS_ITS | Encounter Summary ---
Author Organization [facility] Address [address] [place] [address] Care Team Providers Care Drawer In Hand Name Role Phone Diana Desir [facility] Unavailable Rain Galaviz PA-C Unavailable [phone] Tavia Wyatt MD Unavailable Erica Farrell APRN PIT FURNACE MELTER Unavailable Rich Barrett MD Unavailable [phone] Neil Kent MD Unavailable Diana Desir [facility] Unavailable Livan Sharif MD Unavailable Catherine Cm MD Unavailable + Valery Veronica PA-C Unavailable Brea Quinn BAG LOADER PIT FURNACE MELTER Unavailable [phone] Brea Quinn BAG LOADER PIT FURNACE MELTER Unavailable Jose Francisco Johnson MD Unavailable Alfonso Renteria MD Unavailable [phone] Esha Grimm PA-C Primary Care Provider [phone] Radha Lomeli APRN PIT FURNACE MELTER Unavailable Jelena David OD Unavailable Pao Joseph RN Unavailable Unavailable Esha Grimm PA-C Unavailable [phone] Valery Veronica PA-C Unavailable [phone] Rey Tay MD Unavailable Rocky Zepeda DO Unavailable Philip Dumont MD Unavailable [phone] Meredith Carrera PA-C Unavailable [phone] Neil Kent MD Unavailable Juan Pablo Emmanuel MD Unavailable [phone] Audrey Waite PA-C Unavailable [phone] Valery Veronica PA-C Unavailable Herminia Hatch MD Unavailable Encounter Details Date Type Department Care Team (Late st Contact Info) Description 08/11/2023 [facility] Advice [address] [address] Pao Joseph, RN Social History [...] Score 0 06/20/2023 [facility] Occupational Stress Questionnaire Answer Date [...] at this level? 30 min 03/10/2023 [place] Depression Scale Answer Date Recorded [place] Depression Score 5 01/14/2021 Last EPDS Self [...] CDT Legal Sex Female 4:13 AM HEALTH AND SAFETY TECH Gender Identity Female 03/02/2021 5:45 PM CDT Sexual Orientation Straight 02/28/2020 12 :51 AM CDT documented as of this encounter Plan of Treatment Upcoming Encounters Date Type Department Care Team (Late st Contact Info) Description 10/23/2024 9:30 AM CDT Office Visit [facility] Neurology [address] [place] [address] [place] [address] [place] [address] Johnny Penn MD [address] [facility] [place] [address] 11/28/2024 7:45 AM CDT Virtual Visit [facility] Gastroenterology Clinic [address]th [place] [address] Meredith Carrera PA-C [address] [place] [address] documented as of this encounter Visit Diagnoses Not on filedocumented in this encounter Additional Health Concerns Infection Onset Date Last Indicated Resolved Time Rule Out COVID-19 12/26/2023 12/26/2023 12/26/2023 9:50 AM CDT Rule Out COVID-19 04/09/2024 04/09/2024 04/10/2024 6:48 PM CDT Assessment Noted Time PHQ-9 Depression Total Score: 4 06/20/20 23 8:40 AM HEALTH AND SAFETY TECH documented as of this encounter Care Teams Drawer In Hand Relationship Specialty Start Date End Date Esha Grimm PA-C [address] [place] [address] PCP - General Family Medicine 05/04/23 Diana Desir, [facility] [place] [address] Pharmacist Pharmacist 04/17/21 Rain Galaviz PA-C [address] [place] [address] [address] [place] [address] Physician Mri Assistant Dermatology 04/28/21 Tavia Wyatt MD [address] [place] [address] [address] [place] [address] Dermatology 07/14/21 Erica Farrell APRN PIT FURNACE MELTER [address] [place] 0438200 [place] [address] Nurse Practitioner Cardiovascular Disease 09/09/21 Rich Barrett MD [address] 9545[address] Physician Ophthalmology 01/21/22 Neil Kent MD 500 [place], [place] 774765 Dermatology 02/24/22 Diana Desir, [facility] 3033 [place] [address] Assigned MTM Pharmacist 04/07/22 Livan Sharif MD [address] [place] [address] Cardiovascular Disease 05/14/22 Cathreine Cm MD [address] [place] [address] Cardiovascular Disease 07/21/22 Valery Veronica, PA-C 9 [place], [place] 885175 Physician Mri Assistant Dermatology 07/21/22 Brea Quinn APRN PIT FURNACE MELTER 500 [place] [address] Nurse Practitioner Dermatology 09/21/22 Brea Quinn APRN PIT FURNACE MELTER [address] [place], [place] [address]chuck MD [facility] [place] 290442 Assigned Surgical Provider 10/09/22 05/01/24 [place] [address] [place] [address] 605337 Assigned Musculoskeletal Provider 10/09/22 05/01/24 Alfonso Renteria MD [address] [facility] [address] 200 [place] [address] Assigned Neuroscience Provider 04/02/23 Radha Lomeli, ARLENE PIT FURNACE MELTER 6405 [facility] [address] [place] [address] Assigned Heart and Vascular Provider 05/28/23 Jelena David OD [address] [facility] [place] [address] Ophthalmology 06/15/23 Pao Joseph, VJ Personal Advocate & Liaison (PAL) Nurse 08/01/23 11/07/23 Esha Grimm PA-C [address] [place] [address] Assigned PCP 07/16/23 Valery Veronica PA-C [address] [place] [address] 714145 Physician Mri Assistant Dermatology 09/19/23 Rey Tay MD [address] [place] [address] 238275 Gastroenterology 09/20/23 Rocky Zepeda DO [address] [place] [address] 048735 Physician Gastroenterology 09/20/23 Philip Dumont MD [address] [place] [address] Physician Ophthalmology 09/22/23 Meredith Carrera PA-C [address] [place] [address] Assigned Gastroenterology Provider 11/01/23 Neil Kent MD [address] [address] Dermatology 11/02/23 [place] [address] [address] [address] Neurological Surgery 12/26/23 Audrey Waite PA-C [address] [place] [address] Physician Mri Assistant Dermatology 02/28/24 Valery Veronica PA-C 427042 [place], [place] [address] Physician Mri Assistant Dermatology 04/10/24 Herminia Hatch MD [facility]5 [place], [place] 03197[address] Assigned Rheumatology Provider 07/02/24 documented as of this encounter
--- OUTSIDE RECORDS SUMMARY | 2024-07-22 22:43 | XMS_ITS | Encounter Summary ---
Author Organization [place] Address [address] [place] [address] Care Team Providers Care Structural Technician Name Role Phone Diana Desir [facility] Unavailable Rain Galaviz PA-C Unavailable Tavia Wyatt MD Unavailable Erica Farrell APRN FIELD CONTROL INSPECTOR Unavailable Rich Barrett MD Unavailable [phone] Neil Kent MD Unavailable Diana Desir [facility] Unavailable Livan Sharif MD Unavailable Catherine Cm MD Unavailable + Valery Veronica PA-C Unavailable Brea Quinn ER PHYSICIAN FIELD CONTROL INSPECTOR Unavailable Brea Quinn ER PHYSICIAN FIELD CONTROL INSPECTOR Unavailable Jose Francisco Johnson MD Unavailable Alfonso Renteria MD Unavailable [phone] Esha Grimm PA-C Primary Care Provider [phone] Radha Lomeli APRN FIELD CONTROL INSPECTOR Unavailable Jelena David OD Unavailable Pao Joseph RN Unavailable Unavailable Esha Grimm PA-C Unavailable [phone] Valery Veronica PA-C Unavailable Rey Tay MD Unavailable Rocky Zepeda DO Unavailable Philip Dumont MD Unavailable [phone] Meredith Carrera PA-C Unavailable Neil Kent MD Unavailable Juan Pablo Emmanuel MD Unavailable [phone] Audrey Waite PA-C Unavailable [phone] Valery Veronica PA-C Unavailable Herminia Hatch MD Unavailable Encounter Details Date Type Department Care Team (Late st Contact Info) Description 08/10/2023 [facility] [address] [address] Esha Grimm PA-C [id number] [place] [address] Social History Tobacco Use Types Packs/Day [...] you attend [facility] or denominational services? 1 to 4 times [...] exercise at this level? 30 min 03/10/2023 Ludington Depression Scale Answer Date Recorded [place] Depression Score 5 01/14/2021 Last EPDS Self [...] CDT Legal Sex Female 4:13 AM DIRECTOR COMMUNICATIONS Gender Identity Female 03/02/2021 5:45 PM CDT Sexual Orientation Straight 02/28/2020 12 :51 AM CDT documented as of this encounter Miscellaneous Notes * Telephone Encounter - Asiya Reddy RN - 08/10/2023 11:40 AM DIRECTOR COMMUNICATIONS Esha- see Chapatizt message below. Patient did call to see if E-Visit would be addressed today. No immediate concern at this time. Advised UC if needed sooner. Asiya Reddy RN CTOR COMMUNICATIONS documented in this encounter Plan of Treatment Upcoming Encounters Date Type Department Care Team (Late st Contact Info) Description 10/23/2024 9:30 AM CDT Office Visit [facility] Neurology [facility] - [address], [address] [place] [address] [place] [address] [place], [place] [phone] Johnny Penn MD [address] [place], [place] [address]175 11/28/2024 7:45 AM CDT Virtual Visit [facility] [address] 4th [place] [phone] Meredith Carrera PA-C [address] [place] [address] [id number] documented as of this encounter Visit Diagnoses Not on filedocumented in this encounter Additional Health Concerns Infection Onset Date Last Indicated Resolved Time Rule Out COVID-19 12/26/2023 12/26/2023 12/26/2023 9:50 AM CDT Rule Out COVID-19 04/09/2024 04/09/2024 04/10/2024 6:48 PM CDT Assessment Noted Time PHQ-9 Depression Total Score: 4 06/20/20 23 8:40 AM DIRECTOR COMMUNICATIONS documented as of this encounter Care Teams Structural Technician Relationship Specialty Start Date End Date Esha Grimm PA-C [address] [place] [address] PCP - General Family Medicine 05/04/23 Diana Desir, [facility] [address] [place], [place] [address] Pharmacist Pharmacist 04/17/21 Rain Galaviz PA-C [address] [place] [address] [address] [facility] [place] [address] Physician Front Window Cashier Dermatology 04/28/21 Tavia Wyatt MD [address] [place] [address] [address] [facility] [phone] Dermatology 07/14/21 Erica Farrell APRN FIELD CONTROL INSPECTOR [address] [place], [place] [address] Nurse Practitioner Cardiovascular Disease 09/09/21 Rich Barrett MD [address] 762595 Physician Ophthalmology 01/21/22 Neil Kent MD [address] [place] [address] 163485 Dermatology 02/24/22 [facility] 3033 [place], [place] 865666 Assigned [place] Pharmacist 04/07/22 Livan Sharif MD [address] [place] [address]605 Cardiovascular Disease 05/14/22 Catherine Cm MD [address] [facility] [address] [place] [address]285 Cardiovascular Disease 07/21/22 Valery Veronica, PA-C [address] [place] [address]1795 Physician Front Window Cashier Dermatology 07/21/22 Brea Quinn APRN FIELD CONTROL INSPECTOR 500 [place] [address] Nurse Practitioner Dermatology 09/21/22 Brea Quinn APRN FIELD CONTROL INSPECTOR 6401 [facility] [place] [address] Assigned Surgical Provider 10/09/22 05/01/24 [place] [address] [facility] 300 [place] [address] Assigned Musculoskeletal Provider 10/09/22 05/01/24 Alfonso Renteria MD 5775 [facility] 200 [place], [place] 962986 Assigned Neuroscience Provider 04/02/23 Radha Lomeli APRN FIELD CONTROL INSPECTOR 6405 [facility] [address] [place] [address] Assigned Heart and Vascular Provider 05/28/23 Jelena David OD [address] [place] [address] Ophthalmology 06/15/23 Pao Joseph, RN Personal Advocate & Liaison (PAL) Nurse 08/01/23 11/07/23 Esha Grimm PA-C [address] [place] [phone] Assigned PCP 07/16/23 Valery Veronica PA-C 909 [place], [place] 647625 Physician Front Window Cashier Dermatology 09/19/23 Rey Tay MD 909 [place], [place] 156725 MD Gastroenterology 09/20/23 Rocky Zepeda DO 500 [place] [address] Physician Gastroenterology 09/20/23 Philip Dumont MD 516 [place], [place] 8264[address] Physician Ophthalmology 09/22/23 Meredith Carrera PA-C 909 [place], [place] 797675 Assigned Gastroenterology Provider 11/01/23 Neil Kent MD [address] [place] [address] 231730 Dermatology 11/02/23 [place] [address] [facility] [place], [place] 591147 Neurological Surgery 12/26/23 Audrey Waite PA-C 500 [place] [address] Physician Front Window Cashier Dermatology 02/28/24 Valery Veronica PA-C 659886 [place] [address] Physician Front Window Cashier Dermatology 04/10/24 Herminia Hatch MD [facility]5 [place] [address] Assigned Rheumatology Provider 07/02/24 documented as of this encounter
--- OUTSIDE RECORDS SUMMARY | 2024-07-22 22:43 | XMS_ITS | Encounter Summary ---
Author Organization [place] Address [address] [place] [address] Care Team Providers Care Meal Grinder Tender Name Role Phone Diana Desir [facility] Unavailable [phone] Rain Galaviz PA-C Unavailable Tavia Wyatt MD Unavailable Erica Farrell APRN POLICE CLERK Unavailable Rich Barrett MD Unavailable [phone] Neil Kent MD Unavailable Diana Desir [facility] Unavailable Livan Sharif MD Unavailable Catherine Cm MD Unavailable + Valery Veronica PA-C Unavailable Brea Quinn GREASE CUP FILLER POLICE CLERK Unavailable [phone] Brea Quinn GREASE CUP FILLER POLICE CLERK Unavailable Jose Francisco Johnson MD Unavailable Alfonso Renteria MD Unavailable [phone] Esha Grimm PA-C Primary Care Provider Radha Lomeli APRN POLICE CLERK Unavailable Jelena David OD Unavailable Pao Joseph RN Unavailable Unavailable Esha Grimm PA-C Unavailable [phone] Valery Veronica PA-C Unavailable [phone] Rey Tay MD Unavailable Rocky Zepeda DO Unavailable Philip Dumont MD Unavailable [phone] Meredith Carrera PA-C Unavailable [phone] Neil Kent MD Unavailable Juan Pablo Emmanuel MD Unavailable [phone] Audrey Waite PA-C Unavailable [phone] Valery Veronica PA-C Unavailable Herminia Hatch MD Unavailable Encounter Details Date Type Department Care Team (Late st Contact Info) Description 09/20/2023 [facility]ology [facility] [address] [address] Jeffery Vieira, RN Social History [...] Answer Date Recorded PHQ-2 Score 0 06/20/2023 [facility] Flasher of Occupat ional Health - Occupational Stress [...] exercise at this level? 30 min 03/10/2023 Somers Depression Scale Answer Date Recorded Somers Depression Score 5 01/14/2021 Last EPDS Self [...] PM CDT Legal Sex Female 4:13 AM HARDNESS INSPECTOR Gender Identity Female 03/02/2021 5:45 PM CDT Sexual Orientation Straight 02/28/2020 12 :51 AM CDT documented as of this encounter Plan of Treatment Upcoming Encounters Date Type Department Care Team (Late st Contact Info) Description 10/23/2024 9:30 AM CDT Office Visit [facility] Neurology [address] [place] [address] [place] [address] [place], [place] 2326[address] Johnny Penn MD [address] [place] [address]15 11/28/2024 7:45 AM CDT Virtual Visit [facility] Gastroenterology Clinic [address] 4th [place] [address] Meredith Carrera PAUcheC 239 [place] [address] documented as of this encounter Visit Diagnoses Not on filedocumented in this encounter Additional Health Concerns Infection Onset Date Last Indicated Resolved Time Rule Out COVID-19 12/26/2023 12/26/2023 12/26/2023 9:50 AM CDT Rule Out COVID-19 04/09/2024 04/09/2024 04/10/2024 6:48 PM CDT Assessment Noted Time PHQ-9 Depression Total Score: 4 06/20/20 23 8:40 AM HARDNESS INSPECTOR documented as of this encounter Care Teams Meal Grinder Tender Relationship Specialty Start Date End Date Esha Grimm PA-C [address] [place] [address] PCP - General Family Medicine 05/04/23 Diana Desir, [facility]3 [place] [address] Pharmacist Pharmacist 04/17/21 Rain Galaviz PA-C [address] [place] [address] [address] [place] [address] Physician Director Talent Acquisition Dermatology 04/28/21 Tavia Wyatt MD [address] [place] [address] [address] [place] [address] Dermatology 07/14/21 Erica Farrell APRN POLICE CLERK 6405 [facility] [address] [place] [address] Nurse Practitioner Cardiovascular Disease 09/09/21 Rich Barrett MD [address] [place] [address] [address] [place], [place] 8[address] Physician Ophthalmology 01/21/22 Neil Kent MD 500 [place] [address] Dermatology 02/24/22 Diana Desir, [facility] 3033 [place] [address] Assigned MTM Pharmacist 04/07/22 Livan Sharif MD [address] 6169[address] Cardiovascular Disease 05/14/22 Catherine Cm MD [address] 108945 Cardiovascular Disease 07/21/22 Valery Veronica, PAUcheC 9 [place], [place] 752495 Physician Director Talent Acquisition Dermatology 07/21/22 Brea Quinn APRN POLICE CLERK 500 [place] [address] Nurse Practitioner Dermatology 09/21/22 Brea Quinn APRN POLICE CLERK [address] [place], [place] [address]ch[place] 124852 Assigned Surgical Provider 10/09/22 05/01/24 [place] [address] [place] [address] Assigned Musculoskeletal Provider 10/09/22 05/01/24 Alfonso Renteria MD [address] [facility] [address] 200 [place] [address] Assigned Neuroscience Provider 04/02/23 Radha Lomeli APRN POLICE CLERK 6405 [facility] [address] [place] [address] Assigned Heart and Vascular Provider 05/28/23 Jelena David OD [address] [facility] [place] [address] Ophthalmology 06/15/23 Pao Joseph, VJ Personal Advocate & Liaison (PAL) Nurse 08/01/23 11/07/23 Esha Grimm PA-C [address] [place] [address] Assigned PCP 07/16/23 Valery Veronica PA-C 9 [place], [place] 703835 Physician Director Talent Acquisition Dermatology 09/19/23 Rey Tay MD [address] [place] [address] Gastroenterology 09/20/23 Rocky Zepeda DO [address] [place] [address] Physician Gastroenterology 09/20/23 Philip Dumont MD [address] [place] [address] Physician Ophthalmology 09/22/23 Meredith Carrera PA-C [address] [place] [address] Assigned Gastroenterology Provider 11/01/23 Neil Kent MD [address] [address] Dermatology 11/02/23 [place] [address] [address] Neurological Surgery 12/26/23 Audrey Waite PA-C [address] [place] [address] Physician Director Talent Acquisition Dermatology 02/28/24 Valery Veronica PA-C 527457 [place], [place] [address] Physician Director Talent Acquisition Dermatology 04/10/24 Herminia Hatch MD [facility]5 [place], [place] [address] Assigned Rheumatology Provider 07/02/24 documented as of this encounter
--- OUTSIDE RECORDS SUMMARY | 2024-07-22 22:43 | XMS_ITS | Encounter Summary ---
Author Organization [place] Address [address] [place] [address] Care Team Providers Care Coroner Forensic Technician Name Role Phone Diana Desir [facility] Unavailable Rain Galaviz PA-C Unavailable Tavia Wyatt MD Unavailable Erica Farrell APRN AIR BRUSH ARTIST Unavailable Rich Barrett MD Unavailable [phone] Neil Kent MD Unavailable Diana Desir [facility] Unavailable Livan Sharif MD Unavailable Catherine Cm MD Unavailable + Valery Veronica PA-C Unavailable Brea Quinn INSULATION MACHINE OPERATOR AIR BRUSH ARTIST Unavailable Brea Quinn INSULATION MACHINE OPERATOR AIR BRUSH ARTIST Unavailable Jose Francisco Johnson MD Unavailable Alfonso Renteria MD Unavailable [phone] Esha Grimm PA-C Primary Care Provider Radha Lomeli APRN AIR BRUSH ARTIST Unavailable Jelena David OD Unavailable Pao Joseph RN Unavailable Unavailable Esha Grimm PA-C Unavailable [phone] Valery Veronica PA-C Unavailable Rey Tay MD Unavailable Rocky Zepeda DO Unavailable Philip Dumont MD Unavailable [phone] Meredith Carrera PA-C Unavailable Neil Kent MD Unavailable Juan Pablo Emmanuel MD Unavailable Audrey Waite PA-C Unavailable [phone] Valery Veronica PA-C Unavailable Herminia Hatch MD Unavailable Reason for Visit * Reason Onset Date Comments Call Back 08/01/2023 Encounter Details Date Type Department Care Team (Late st Contact Info) Description 08/01/2023 Telephone [facility] [address] [place] [address] Esha Grimm PA-C [address] [place] [address] Call Back Social History Tobacco [...] Answer Date Recorded PHQ-2 Score 0 06/20/2023 [facility] - Occupational [...] exercise at this level? 30 min 03/10/2023 [place] Depression Scale Answer Date Recorded [place] Depression Score 5 01/14/2021 Last EPDS Self [...] PM CDT Legal Sex Female 4:13 AM CRANKSHAFT BALANCER Gender Identity Female 03/02/2021 5:45 PM CDT Sexual Orientation Straight 02/28/2020 12 :51 AM CDT documented as of this encounter Miscellaneous Notes * Telephone Encounter - Esha Grimm PA-C - 08/02/2023 7:49 AM CST See telephone encounter. Seen by [facility] who reviewed imaging and note fracture. Custom wrap made for the patient. Esha Grimm PA-C on 08/02/2023 at 7:49 AM KSHAFT BALANCER * Telephone Encounter - Debbie Shahid - [...] we send this information to you in [facility] or would you prefer to receive a phone call?: No preference Okay to leave a detailed message?: Yes at Home number on file [phone] (home) KSHAFT BALANCER documented in this encounter Plan of Treatment Upcoming Encounters Date Type Department Care Team (Late st Contact Info) Description 10/23/2024 9:30 AM CDT Office Visit [facility] Neurology [address], [address] [place] [address] [place] [address] [place] [address] 79[address] Johnny Penn MD 6550 [facility] [place], [place] [address] 11/28/2024 7:45 AM CDT Virtual Visit [facility] Gastroenterology Clinic [address] 4th [place] [address] Meredith Carrera PA-C [address] [place] [address] documented as of this encounter Visit Diagnoses Not on filedocumented in this encounter Additional Health Concerns Infection Onset Date Last Indicated Resolved Time Rule Out COVID-19 12/26/2023 12/26/2023 12/26/2023 9:50 AM CDT Rule Out COVID-19 04/09/2024 04/09/2024 04/10/2024 6:48 PM CDT Assessment Noted Time PHQ-9 Depression Total Score: 4 06/20/20 23 8:40 AM CRANKSHAFT BALANCER documented as of this encounter Care Teams Coroner Forensic Technician Relationship Specialty Start Date End Date Esha Grimm PA-C [address] [place] [address] PCP - General Family Medicine 05/04/23 Diana Desir, [facility] [address] [place] [address] Pharmacist Pharmacist 04/17/21 Rain Galaviz PA-C [address] [place] [address] [address] [place] [address] Physician Sustainable Development Policy Analyst Dermatology 04/28/21 Tavia Wyatt MD [address] [place] [address] [address] [place] [address] Dermatology 07/14/21 Erica Farrell APRN AIR BRUSH ARTIST 6405 [facility] [address] [place], [place] 455715 Nurse Practitioner Cardiovascular Disease 09/09/21 Rich Barrett MD 516 [facility] 9A [place], [place] 9[address] Physician Ophthalmology 01/21/22 Neil Kent MD 500 [place], [place] 3979[address] Dermatology 02/24/22 Diana Desir, [facility] [place] [address] Assigned MTM Pharmacist 04/07/22 Livan Sharif MD [address] [facility] [address] [place], [place] [address] Cardiovascular Disease 05/14/22 Catherine Cm MD 6405 [facility] [address] [place] [address] Cardiovascular Disease 07/21/22 Valery Veronica, PA-C [address] [place] [address] 820315 Physician Sustainable Development Policy Analyst Dermatology 07/21/22 Brea Quinn APRN AIR BRUSH ARTIST [address] [place] [address] 569575 Nurse Practitioner Dermatology 09/21/22 Brea Quinn APRN AIR BRUSH ARTIST [address] [place] [address] Assigned Surgical Provider 10/09/22 05/01/24 [place] [address] [place] [address] [address] Assigned Musculoskeletal Provider 10/09/22 05/01/24 Alfonso Renteria MD [address] [facility] 200 [place], [place] 7565[address] Assigned Neuroscience Provider 04/02/23 Radha Lomeli APRN AIR BRUSH ARTIST 6405 [facility]00 [place] [address] Assigned Heart and Vascular Provider 05/28/23 Jelena David OD [address] [facility] [address] MD Ophthalmology 06/15/23 Pao Joseph, RN Personal Advocate & Liaison (PAL) Nurse 08/01/23 11/07/23 Esha Grimm PA-C [address] [place] [address] Assigned PCP 07/16/23 Valery Veronica PA-C [address] [place] [address] 736165 Physician Sustainable Development Policy Analyst Dermatology 09/19/23 Rey Tay MD [address] [place] [address] Gastroenterology 09/20/23 Rocky Zepeda DO [address] [place] [address] 446335 Physician Gastroenterology 09/20/23 Philip Dumont MD [address] [place] [address] Physician Ophthalmology 09/22/23 Meredith Carrera PA-C [address] [place] [address] 259085 Assigned Gastroenterology Provider 11/01/23 Neil Kent MD [address] 320040 Dermatology 11/02/23 [place] [address] [place] [address] 246827 Neurological Surgery 12/26/23 Audrey Waite PA-C 500 [place] [address] Physician Sustainable Development Policy Analyst Dermatology 02/28/24 Valery Veronica PA-C [address] [address] Physician Sustainable Development Policy Analyst Dermatology 04/10/24 Herminia Hatch MD [place] [facility]5 [place], [place] [address] Assigned Rheumatology Provider 07/02/24 documented as of this encounter
--- OUTSIDE RECORDS SUMMARY | 2024-07-22 22:43 | XMS_ITS | Encounter Summary ---
Author Organization [facility] Address [address] [place] [address] Care Team Providers Care Colorer Machine Name Role Phone Diaan Desir [facility] Unavailable [phone] Rain Galaviz PA-C Unavailable [phone] Tavia Wyatt MD Unavailable Erica Farrell APRN PLASTER APPLICATOR Unavailable Rich Barrett MD Unavailable [phone] Neil Kent MD Unavailable Diana Desir [facility] Unavailable Livan Sharif MD Unavailable Catherine Cm MD Unavailable + Valery Veronica PA-C Unavailable [phone] Brea Quinn SURGERY TEACHER PLASTER APPLICATOR Unavailable Brea Quinn SURGERY TEACHER PLASTER APPLICATOR Unavailable [phone] Jose Francisco Johnson MD Unavailable Alfonso Renteria MD Unavailable [phone] Esha Grimm PA-C Primary Care Provider Radha Lomeli APRN PLASTER APPLICATOR Unavailable Jelena David OD Unavailable Pao Joseph RN Unavailable Unavailable Esha Grimm PA-C Unavailable [phone] Valery Veronica PA-C Unavailable [phone] Rey Tay MD Unavailable Rocky Zepeda DO Unavailable Philip Dumont MD Unavailable [phone] Meredith Carrera PA-C Unavailable [phone] Neil Kent MD Unavailable Juan Pablo Emmanuel MD Unavailable [phone] Audrey Waite PA-C Unavailable [phone] Valery Veronica PA-C Unavailable Herminia Hatch MD Unavailable Encounter Details Date Type Department Care Team (Late st Contact Info) Description 09/08/2023 [facility] [place] [facility]ology [facility] [address] [address] Mary Kelsey Social History Tobacco [...] exercise at this level? 30 min 03/10/2023 [place] Depression Scale Answer Date Recorded [place] Depression Score 5 01/14/2021 Last EPDS Self [...] PM CDT Legal Sex Female 4:13 AM CIVIL ENGINEERING DRAFTER Gender Identity Female 03/02/2021 5:45 PM CDT Sexual Orientation Straight 02/28/2020 12 :51 AM CDT documented as of this encounter Plan of Treatment Upcoming Encounters Date Type Department Care Team (Late st Contact Info) Description 10/23/2024 9:30 AM CDT Office Visit [facility] Neurology [address], [address] [place] [address] [place] [address] [address] [id number] Johnny Penn MD [address] [place] 629455 11/28/2024 7:45 AM CDT Virtual Visit [facility] Gastroenterology Clinic [address] 4th [place] [address] Meredith Carrera PA-C 909 [place] [address] documented as of this encounter Visit Diagnoses Not on filedocumented in this encounter Additional Health Concerns Infection Onset Date Last Indicated Resolved Time Rule Out COVID-19 12/26/2023 12/26/2023 12/26/2023 9:50 AM CDT Rule Out COVID-19 04/09/2024 04/09/2024 04/10/2024 6:48 PM CDT Assessment Noted Time PHQ-9 Depression Total Score: 4 06/20/20 8:40 AM CIVIL ENGINEERING DRAFTER documented as of this encounter Care Teams Colorer Machine Relationship Specialty Start Date End Date Esha Grimm PA-C [address] [place] [address] PCP - General Family Medicine 05/04/23 [facility] [address] [place] [address] Pharmacist Pharmacist 04/17/21 Rain Galaviz PA-C [address] [place] [address] [address] [place] [address] Physician Banquet Houseperson Dermatology 04/28/21 Tavia Wyatt MD [address] [place] [address] [address] [place] [address] Dermatology 07/14/21 Erica Farrell APRN PLASTER APPLICATOR [address] [id number] [place] [address] Nurse Practitioner Cardiovascular Disease 09/09/21 Rich Barrett MD [address] 586225 Physician Ophthalmology 01/21/22 Neil Kent MD 500 [place], [place] 386225 Dermatology 02/24/22 Diana Desir, [facility] [address] [place] [address] Assigned MTM Pharmacist 04/07/22 Livan Sharif MD [address] 416235 Cardiovascular Disease 05/14/22 Catherine Cm MD [address] 014465 Cardiovascular Disease 07/21/22 Valery Veronica, PA-C 909 [place], [place] 625965 Physician Banquet Houseperson Dermatology 07/21/22 Brea Quinn APRN PLASTER APPLICATOR 500 [place] [address] Nurse Practitioner Dermatology 09/21/22 Brea uQinn APRN PLASTER APPLICATOR [address] [place] [address] [place] [id number] Assigned Surgical Provider 10/09/22 05/01/24 [place] [address] 179197 Assigned Musculoskeletal Provider 10/09/22 05/01/24 Alfonso Renteria MD [address] [place] [address] Assigned Neuroscience Provider 04/02/23 Radha Lomeli APRN PLASTER APPLICATOR [address] [facility] [address] [place] [address] Assigned Heart and Vascular Provider 05/28/23 Jelena David OD [address] [facility] [place] [address] Ophthalmology 06/15/23 Pao Joseph, VJ Personal Advocate & Liaison (PAL) Nurse 08/01/23 11/07/23 Esha Grimm PA-C [address] [place] [address] Assigned PCP 07/16/23 Valery Veronica PA-C [address] [place] [address] 298835 Physician Banquet Houseperson Dermatology 09/19/23 Rey Tay MD [address] [place] [address] 901125 Gastroenterology 09/20/23 Rocky Zepeda DO [address] [place] [address] 942395 Physician Gastroenterology 09/20/23 Philip Dumont MD [address] [place] [address] Physician Ophthalmology 09/22/23 Meredith Carrera PA-C [address] [place] [address] Assigned Gastroenterology Provider 11/01/23 Neil Kent MD [address] [place] [address] Dermatology 11/02/23 [place] [address] [address] Neurological Surgery 12/26/23 Audrey Waite PA-C [address] [place] [address] Physician Banquet Houseperson Dermatology 02/28/24 Valery Veronica PA-C 911783 [place], [place] [address] Physician Banquet Houseperson Dermatology 04/10/24 Herminia Hatch MD [facility] [place] [address] Assigned Rheumatology Provider 07/02/24 documented as of this encounter
--- OUTSIDE RECORDS SUMMARY | 2024-07-22 22:43 | XMS_ITS | Encounter Summary ---
Author Organization [facility] Address [address] [place] [address] Care Team Providers Care Stained Glass Window Designer Name Role Phone Diana Desir [facility] Unavailable Rain Galaviz PA-C Unavailable Tavia Wyatt MD Unavailable Eriac Farrell APRN BLENDER / COOK Unavailable Rich Barrett MD Unavailable [phone] Neil Kent MD Unavailable Diana Desir [facility] Unavailable Livan Sharif MD Unavailable Catherine Cm MD Unavailable + Valery Veronica-C Unavailable [phone] Brea Quinn CANDY FEEDER BLENDER / COOK Unavailable Brea Quinn CANDY FEEDER BLENDER / COOK Unavailable [phone] Jose Francisco Johnson MD Unavailable Sydnie Martinez RN Unavailable Unavailable Alfonso Renteria MD Unavailable [phone] Esha Grimm PA-C Primary Care Provider [phone] Radha Lomeli APRN BLENDER / COOK Unavailable Jelena David OD Unavailable Pao Joseph RN Unavailable Unavailable Esha Grimm PA-C Unavailable [phone] Valery Veronica PA-C Unavailable Rey Tay MD Unavailable Rocky Zepeda DO Unavailable Philip Dumont MD Unavailable Meredith Carrera PA-C Unavailable [phone] Neil [place] MD Unavailable Juan Pablo Emmanuel MD Unavailable [phone] Audrey Waite PA-C Unavailable Valery Veronica PA-C Unavailable Herminia Hatch MD Unavailable Encounter Details Date Type Department Care Team (Late st Contact Info) Description 07/29/2023 [facility] Medical Advice [address] [address] Pao Joseph, RN Social History [...] PHQ-2 Score 0 06/20/2023 [facility] [place] [facility] - Occupational Stress [...] exercise at this level? 30 min 03/10/2023 [place] Depression Scale Answer Date Recorded [place] [...] PM CDT Legal Sex Female 4:13 AM TRAY PACKER Gender Identity Female 03/02/2021 5:45 PM CDT Sexual Orientation Straight 02/28/2020 12 :51 AM CDT documented as of this encounter Plan of Treatment Upcoming Encounters Date Type Department Care Team (Late st Contact Info) Description 10/23/2024 9:30 AM CDT Office Visit [facility] Neurology [address], [address] [place] [address] [place] [address] [place] [address] Johnny Penn MD [address] [place] 284[address] 11/28/2024 7:45 AM CDT Virtual Visit [facility] Gastroenterology Clinic [address] 4th [place] [address] Meredith Carrera PAUcheC 909 [place] [address] documented as of this encounter Visit Diagnoses Not on filedocumented in this encounter Additional Health Concerns Infection Onset Date Last Indicated Resolved Time Rule Out COVID-19 12/26/2023 12/26/2023 12/26/2023 9:50 AM CDT Rule Out COVID-19 04/09/2024 04/09/2024 04/10/2024 6:48 PM CDT Assessment Noted Time PHQ-9 Depression Total Score: 4 06/20/20 8:40 AM TRAY PACKER documented as of this encounter Care Teams Stained Glass Window Designer Relationship Specialty Start Date End Date Esha Grimm PA-C [address] [place] [address] PCP - General Family Medicine 05/04/23 Diana Desir, [facility] [address] [place] [address] Pharmacist Pharmacist 04/17/21 Rain Galaviz PA-C [address] [place] [address] [address] [place] [address] Physician Benefits Coordinator Dermatology 04/28/21 Tavia Wyatt MD [address] [place] [address] [address] [place] [address] Dermatology 07/14/21 Erica Farrell APRN BLENDER / COOK [address] [facility] [address] [place] [address] Nurse Practitioner Cardiovascular Disease 09/09/21 Rich Barrett MD [address], [place] 0[address] Physician Ophthalmology 01/21/22 Neil Kent MD 500 [place], [place] 855895 Dermatology 02/24/22 Diana Desir, [facility] 30[address] [place] [address] Assigned MTM Pharmacist 04/07/22 Livan Sharif MD [address] 273955 Cardiovascular Disease 05/14/22 Catherine Cm MD [address] 063505 Cardiovascular Disease 07/21/22 Valery Veronica, PA-C 909 [place], [place] 200855 Physician Benefits Coordinator Dermatology 07/21/22 Brea Quinn APRN BLENDER / COOK 500 [place] [address] Nurse Practitioner Dermatology 09/21/22 Brea Quinn APRN BLENDER / COOK [address] [place] [address] [place] 791882 Assigned Surgical Provider 10/09/22 05/01/24 [place] [address] 372531 Assigned Musculoskeletal Provider 10/09/22 05/01/24 Sydnie Martinez, VJ Personal Advocate & Liaison (PAL) Family Medicine 03/28/23 07/31/23 Alfonso Renteria MD 5775 [facility] [address] [place] [address] Assigned Neuroscience Provider 04/02/23 Radha Lomeli, CANDY FEEDER BLENDER / COOK [address] [facility] [address] [place], [place] 651195 Assigned Heart and Vascular Provider 05/28/23 Jelena David OD [address] [facility] [place] [address] Ophthalmology 06/15/23 Pao Joseph, VJ Personal Advocate & Liaison (PAL) Nurse 08/01/23 11/07/23 Esha Grimm PA-C [address] [place] [address] Assigned PCP 07/16/23 Valery Veronica PA-C [address] [place] [address] Physician Benefits Coordinator Dermatology 09/19/23 Rey Tay MD [address] [place] [address] 551765 Gastroenterology 09/20/23 Rocky Zepeda DO [address] [place] [address] 406045 Physician Gastroenterology 09/20/23 Philip Dumont MD 516 [place] [address] Physician Ophthalmology 09/22/23 Meredith Carrera PA-C 909 [place], [place] 925845 Assigned Gastroenterology Provider 11/01/23 Neil Kent MD [address] 757740 MD Dermatology 11/02/23 [place] [address] 899087 Neurological Surgery 12/26/23 Audrey Waite PA-C 500 [place], [place] 309675 Physician Benefits Coordinator Dermatology 02/28/24 Valery Veronica PA-C [address] [place] [address] Physician Benefits Coordinator Dermatology 04/10/24 Herminia Hatch MD [facility]5 [place] [address] Assigned Rheumatology Provider 07/02/24 documented as of this encounter
--- OUTSIDE RECORDS SUMMARY | 2024-07-22 22:44 | XMS_ITS | Encounter Summary ---
Author Organization [facility] Address [address] [place] [address] Care Team Providers Care Lithograph Press Operator Tinware Name Role Phone Lita Oseguera Unavailable Unavailable Marija Edgar APRN AUTO SPECIALTY SERVICES MANAGER Primary Care Provider + Marija Edgar APRN AUTO SPECIALTY SERVICES MANAGER Unavailable [phone] Keisha Dotson MD Unavailable [phone] Diana Desir [facility] Unavailable Rain Galaviz PA-C Unavailable Tavia Wyatt MD Unavailable Erica Farrell APRN AUTO SPECIALTY SERVICES MANAGER Unavailable Rich Barrett MD Unavailable [phone] Neil Kent MD Unavailable Diana Desir [facility] Unavailable Livan Sharif MD Unavailable Catherine Cm MD Unavailable + Valery Veronica PA-C Unavailable [phone] Brea Quinn CENTER MEDICAL SPECIALIST AUTO SPECIALTY SERVICES MANAGER Unavailable Brea Quinn CENTER MEDICAL SPECIALIST AUTO SPECIALTY SERVICES MANAGER Unavailable Jose Francisco Johnson MD Unavailable Livan Sharif MD Unavailable Catherine Cm MD Unavailable + Sydnie Martinez RN Unavailable Unavailable Alfonso Renteria MD Unavailable [phone] Esha Grimm PA-C Primary Care Provider Cheng Todd PA-C Unavailable Radha Lomeli APRN AUTO SPECIALTY SERVICES MANAGER Unavailable Jelena David OD Unavailable Pao Joseph RN Unavailable Unavailable Esha Grimm PA-C Unavailable [phone] Valery Veronica PA-C Unavailable Rey Tay MD Unavailable Rocky Zepeda DO Unavailable Philip Dumont MD Unavailable Meredith Carrera PA-C Unavailable Neil Kent MD Unavailable Juan Pablo Emmanuel MD Unavailable Audrey Waite PA-C Unavailable JeremíasValery damon PA-C Unavailable Herminia Hatch MD Unavailable Encounter Details Date Type Department Care Team (Late st Contact Info) Description 11/10/2022 [facility] Medical Advice [facility] [address] [place] [address] Lauren Claudio PA-C [address] [place] [address] Social History Tobacco Use Types [...] How often do you attend presybeterian or yazdanism serv ices? Never 09/22/2021 Do [...] Answer Date Recorded PHQ-2 Score 1 10/11/2022 [facility] - Occupational Stress Questionnaire [...] in a longterm (including now)? No 09/22/2021 [place] Depression Scale Answer Date Recorded [place] Depression Score 5 01/14/2021 Last EPDS Self Harm Result Not on file 01/14 Education Answer Date Recorded What is the highest level of school you have completed or the highest degree you have received? 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 [address] 11/28/2024 7:45 AM CDT Virtual Visit [facility] Gastroenterology Clinic [address] [place] [address] Meredith Carrera PA-C [address] [place] [address] 313545 documented as of this encounter Visit Diagnoses [...] documented as of this encounter Care Teams Lithograph Press Operator Tinware Relationship Specialty Start Date End Date Marija Edgar APRN AUTO SPECIALTY SERVICES MANAGER PCP - General Nurse Practitioner 04/30/20 04/14/23 Esha Grimm PA-C [address] [place] [address] PCP - General Family Medicine 05/04/23 Lita Oseguera Personal Advocate & Liaison (PAL) 02/28/20 03/27/23 Marija Edgar APRN AUTO SPECIALTY SERVICES MANAGER Assigned PCP 06/08/20 04/29/23 Keisha Dotson MD [address] [place] [address] Assigned Neuroscience Provider 06/04/20 04/01/23 Diana Desir, [facility] 3033 [place] [address] Pharmacist Pharmacist 04/17/21 Rain Galaviz PA-C [address] [place] [address] [address] [facility] [place] [address] Physician Bobj Developer Dermatology 04/28/21 Tavia Wyatt MD [address] [place] [address] [address] [place] [facility] [place] [address] Dermatology 07/14/21 Erica Farrell APRN AUTO SPECIALTY SERVICES MANAGER [address] [place], [place] 410575 Nurse Practitioner Cardiovascular Disease 09/09/21 Rich Barrett MD 516 [facility] 9A [place], [place] 734335 Physician Ophthalmology 01/21/22 Neil Kent MD 500 [place], [place] 257725 Dermatology 02/24/22 Diana Desir, [facility] 30[address] [place], [place] 185846 Assigned [facility] Pharmacist 04/07/22 Livan Sharif MD [address], [facility]00 [place] [address] Cardiovascular Disease 05/14/22 Catherine Cm MD [address] [facility] S [address] 790625 Cardiovascular Disease 07/21/22 Valery Veronica, PA-C [address] [place] [address] 428795 Physician Bobj Developer Dermatology 07/21/22 Brea Quinn APRN AUTO SPECIALTY SERVICES MANAGER 500 [place], [place] 482955 Nurse Practitioner Dermatology 09/21/22 Brea Quinn APRN AUTO SPECIALTY SERVICES MANAGER 6401 [facility] [place] 951572 Assigned Surgical Provider 10/09/22 05/01/24 [place] [address] [place] [address] Assigned Musculoskeletal Provider 10/09/22 05/01/24 Livan Sharif MD [address] [facility] [address] [place] [address] Assigned Heart and Vascular Provider 11/06/22 11/12/22 Catherine Cm MD [address] [facility]00 [place] [address] Assigned Heart and Vascular Provider 11/13/22 05/27/23 Sydnie Martinez RN Personal Advocate & Liaison (PAL) Family Medicine 03/28/23 07/31/23 Alfonso Renteria MD 5775 [facility] 200 [place] [address] Assigned Neuroscience Provider 04/02/23 Cheng Todd PA-C [address] [place] [address] [id number] Assigned PCP 04/30/23 07/15/23 Radha Lomeli APRN AUTO SPECIALTY SERVICES MANAGER [address] [place] [address] Assigned Heart and Vascular Provider 05/28/23 Jelena David OD [address] [facility] [place] [address] MD Ophthalmology 06/15/23 Pao Joseph, RN Personal Advocate & Liaison (PAL) Nurse 08/01/23 11/07/23 Esha Grimm PA-C [address] [place] [address] Assigned PCP 07/16/23 Valery Veronica PA-C [address] [place] [address] Physician Bobj Developer Dermatology 09/19/23 Rey Tay MD [address] [place] [address] 717995 MD Gastroenterology 09/20/23 Rocky Zepeda DO [address] [place] [address] 603195 Physician Gastroenterology 09/20/23 Philip Dumont MD [address] [place] [address] 396485 Physician Ophthalmology 09/22/23 Meredith Carrera PA-C [address] [place] [address] 682225 Assigned Gastroenterology Provider 11/01/23 Neil Kent MD [address] 070500 Dermatology 11/02/23 [place] [address] [place] [address] Neurological Surgery 12/26/23 Aurdey Waite PA-C 500 [place] [address] Physician Bobj Developer Dermatology 02/28/24 Valery Veronica PA-C [address] [place] [address] Physician Bobj Developer Dermatology 04/10/24 Herminia Hatch MD [address] [place] [address] Assigned Rheumatology Provider 07/02/24 documented as of this encounter
--- OUTSIDE RECORDS SUMMARY | 2024-07-22 22:44 | XMS_ITS | Encounter Summary ---
Author Organization [facility] Address [address] [place] [address] Care Team Providers Care Television Installer Name Role Phone Lita Oseguera Unavailable Unavailable Marija Edgar APRN PAPER REWINDER OPERATOR Primary Care Provider + Marija Edgar APRN PAPER REWINDER OPERATOR Unavailable [phone] Keisha Dotson MD Unavailable [phone] Diana Desir [facility] Unavailable [phone] Rain Galaviz PA-C Unavailable [phone] Tavia Wyatt MD Unavailable [phone] Erica Farrell APRN PAPER REWINDER OPERATOR Unavailable Rich Barrett MD Unavailable [phone] Neil Kent MD Unavailable Diana Desir [facility] Unavailable Livan Sharif MD Unavailable Catherine Cm MD Unavailable + Valery Veronica PA-C Unavailable [phone] Catherine Cm MD Unavailable + Brea Quinn MARRIAGE THERAPIST PAPER REWINDER OPERATOR Unavailable Brea Quinn MARRIAGE THERAPIST PAPER REWINDER OPERATOR Unavailable Jose Francisco Johnson MD Unavailable Livan Sharif MD Unavailable Catherine Cm MD Unavailable + Sydnie Martinez RN Unavailable Unavailable Alfonso Renteria MD Unavailable [phone] Esha Grimm PA-C Primary Care Provider Chneg Todd PA-C Unavailable Radha Lomeli MARRIAGE THERAPIST PAPER REWINDER OPERATOR Unavailable Jelena David OD Unavailable Pao Joseph RN Unavailable Unavailable Esha Grimm PA-C Unavailable [phone] Valery Veronica PA-C Unavailable Rey Tay MD Unavailable Rocky Zepeda DO Unavailable Philip Dumont MD Unavailable [phone] Meredith Carrera PA-C Unavailable Neil Kent MD Unavailable Juan Pablo Emmanuel MD Unavailable Audrey Waite PA-C Unavailable [phone] JeremíasValery damon PA-C Unavailable Herminia Hatch MD Unavailable Reason for Visit * Reason Onset Date Comments Alejandrohart Communication 10/27/2022 Encounter Details Date Type Department Care Team (Late st Contact Info) Description 10/27/2022 [facility] [address] [place] [address] Brea Quinn, MARRIAGE THERAPIST PAPER REWINDER OPERATOR [address] [facility] [place] [address] Alejandrohart Communication (/) Social History Tobacco Use [...] How often do you attend hoahaoism or mormon serv ices? Never 09/22/2021 Do [...] Date Recorded PHQ-2 Score 1 10/11/2022 [facility] [...] in a fpc (including now)? No 09/22/2021 [place] Depression Scale Answer Date Recorded [place] Depression Score 5 01/14/2021 Last EPDS Self Harm Result Not on file 01/14 Education Answer Date Recorded What is the highest level of school you have completed or the highest degree you have received? 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 Letha Driver RN [facility] [phone] documented in this encounter Plan of Treatment Upcoming Encounters Date Type Department Care Team (Late st Contact Info) Description 10/23/2024 9:30 AM CDT Office Visit [facility] Neurology [address], [address] [place] [address] [place] [address] [place] [address] 568537 Johnny Penn MD 0666 [place], [place] 481305 11/28/2024 7:45 AM CDT Virtual Visit [facility] Gastroenterology Clinic [address] 4th [place] [address] Meredith Carrera PA-C [address] [place] [address] 253315 documented as of this encounter Visit Diagnoses [...] documented as of this encounter Care Teams Television Installer Relationship Specialty Start Date End Date Marija Edgar APRN PAPER REWINDER OPERATOR PCP - General Nurse Practitioner 04/30/20 04/14/23 Esha Grimm PA-C [address] [place] [address] PCP - General Family Medicine 05/04/23 Lita Oseguera Personal Advocate & Liaison (PAL) 02/28/20 03/27/23 Marija Edgar APRN PAPER REWINDER OPERATOR Assigned PCP 06/08/20 04/29/23 Keisha Dotson MD 909 [place], [place] 459665 Assigned Neuroscience Provider 06/04/20 04/01/23 Diana Desir [facility] [address] [employer], [place] 665536 Pharmacist Pharmacist 04/17/21 Rain Galaviz PA-C [address] [place] [address] [address] [place] [address] Physician Buyer Agent Dermatology 04/28/21 Tavia Wyatt MD [address] [place] [address] [address] [place] [address] Dermatology 07/14/21 Erica Farrell APRN PAPER REWINDER OPERATOR [address] [place] 179345 Nurse Practitioner Cardiovascular Disease 09/09/21 Rich Barrett MD [address] 767395 Physician Ophthalmology 01/21/22 Neil Kent MD 500 [place], [place] 6[address]105 Dermatology 02/24/22 Diana Desir, [facility] [address] [place] [address] Assigned MTM Pharmacist 04/07/22 Livan Sharif MD [address] [place] 303365 Cardiovascular Disease 05/14/22 Catherine Cm MD [address] [place] [address] Cardiovascular Disease 07/21/22 Valery Veronica PA-C 909 [place] [address] Physician Buyer Agent Dermatology 07/21/22 Catherine Cm MD [address] [facility] [place] [address] Assigned Heart and Vascular Provider 07/24/22 11/05/22 Brea Quinn APRN PAPER REWINDER OPERATOR 500 [place], [place] 276955 Nurse Practitioner Dermatology 09/21/22 Brea Quinn APRN PAPER REWINDER OPERATOR 6401 [place] [address] Assigned Surgical Provider 10/09/22 05/01/24 [place] [address] [address] Assigned Musculoskeletal Provider 10/09/22 05/01/24 Livan Sharif MD [address] [facility] [place] [address] Assigned Heart and Vascular Provider 11/06/22 11/12/22 Catherine Cm MD [address] [facility]00 [place] 285085 Assigned Heart and Vascular Provider 11/13/22 05/27/23 Sydnie Martinez RN Personal Advocate & Liaison (PAL) Family Medicine 03/28/23 07/31/23 Alfonso Renteria MD [address] [facility] [address] [place] [address] Assigned Neuroscience Provider 04/02/23 Cheng Todd PA-C [address] [place] [address] Assigned PCP 04/30/23 07/15/23 Radha Lomeli APRN PAPER REWINDER OPERATOR [address] [facility] [address] [place], [place] 392545 Assigned Heart and Vascular Provider 05/28/23 Jelena David OD [address] [facility] [place] [address] Ophthalmology 06/15/23 Pao Joseph, VJ Personal Advocate & Liaison (PAL) Nurse 08/01/23 11/07/23 Esha Grimm PA-C [address] [place] [address] Assigned PCP 07/16/23 Valery Veronica PA-C [address] [place] [address] 576435 Physician Buyer Agent Dermatology 09/19/23 Rey Tay MD [address] [place] [address] 056525 Gastroenterology 09/20/23 Rocky Zepeda DO [address] [place] [address] 188095 Physician Gastroenterology 09/20/23 Philip Dumont MD 516 [place] [address] Physician Ophthalmology 09/22/23 Meredith Carrera PA-C 909 [place] [address] Assigned Gastroenterology Provider 11/01/23 Neil Kent MD [address] [address] Dermatology 11/02/23 [place] [address] [address] Neurological Surgery 12/26/23 Audrey Waite PA-C [address] [place] [address] Physician Buyer Agent Dermatology 02/28/24 Valery Veronica PA-C 295464 [place] [address] Physician Buyer Agent Dermatology 04/10/24 Herminia Hatch MD [facility]5 [place] [address] Assigned Rheumatology Provider 07/02/24 documented as of this encounter
--- OUTSIDE RECORDS SUMMARY | 2024-07-22 22:44 | XMS_ITS | Encounter Summary ---
Author Organization [facility] Address [address] [place] [address] Care Team Providers Care Tire Man Name Role Phone Marija Edgar APRN TUBE LANCER Primary Care Provider + Marija Edgar APRN TUBE LANCER Unavailable [phone] Keisha Dotson MD Unavailable Diana Desir [facility] Unavailable Rain Galaviz PA-C Unavailable [phone] Tavia Wyatt MD Unavailable [phone] Erica Farrell APRN TUBE LANCER Unavailable Rich Barrett MD Unavailable Neil Kent MD Unavailable Diana Desir [facility] Unavailable Livan Sharif MD Unavailable Catherine Cm MD Unavailable + Valery Veronica PA-C Unavailable [phone] Brea Quinn APRN TUBE LANCER Unavailable Brea Quinn APRN TUBE LANCER Unavailable Jose Francisco Johnson MD Unavailable Catherine Cm MD Unavailable + Sydnie Martinez RN Unavailable Unavailable Alfonso Renteria MD Unavailable [phone] Esha Grimm PA-C Primary Care Provider Cheng Todd PA-C Unavailable Armani Radha Stovall APRN TUBE LANCER Unavailable Frankie Jelena Garcia OD Unavailable Pao Joseph RN Unavailable Unavailable Esha Grimm PA-C Unavailable [phone] Valery Veronica PA-C Unavailable [phone] Rey Tay MD Unavailable Rocky Zepeda DO Unavailable Philip Dumont MD Unavailable [phone] Meredith Carrera PA-C Unavailable Neil Kent MD Unavailable Juan Pablo Emmanuel MD Unavailable [phone] Audrey Waite PA-C Unavailable [phone] JeremíasValery damno PA-C Unavailable [phone] Herminia Hatch MD Unavailable Encounter Details Date Type Department Care Team (Late st Contact Info) Description 03/29/2023 [facility] Medical Advice [address] [address] Diana Desir, [facility] [address] [place], [place] 264246 Social History Tobacco Use Types Packs/Day Years [...] How often do you attend chur or confucianist services? 1 to 4 times [...] Answer Date Recorded PHQ-2 Score 0 03/10/2023 [facility] - [...] slept in a prison (including now)? No 03/10/2023 [place] Depression Scale Answer Date Recorded [place] Depression Score 5 01/14/2021 Last EPDS Self Harm Result Not on file 01/14 Education Answer Date Recorded What is the highest level of school you have completed or the highest degree you have received? 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 [place] [address] Johnny Penn MD [address] [place] [address] 11/28/2024 7:45 AM CDT Virtual Visit [facility] Gastroenterology Clinic [address] 4th [place] [address] Meredith Carrera PA-C [address] [place] [address] [phone] documented as of this encounter Visit Diagnoses Not on filedocumented in this encounter Additional Health Concerns Infection Onset Date Last Indicated Resolved Time Rule Out COVID-19 12/26/2023 12/26/2023 12/26/2023 9:50 AM CDT Rule Out COVID-19 04/09/2024 04/09/2024 04/10/2024 6:48 PM CDT Assessment Noted Time PHQ-9 Depression Total Score: 5 03/10/20 6:49 AM CDT documented as of this encounter Care Teams Tire Man Relationship Specialty Start Date End Date Marija Edgar APRN TUBE LANCER PCP - General Nurse Practitioner 04/30/20 04/14/23 Esha Grimm PA-C [address] [place] [address] PCP - General Family Medicine 05/04/23 Marija Edgar APRN TUBE LANCER Assigned PCP 06/08/20 04/29/23 Keisha Dotson MD 909 [place], [place] 619165 Assigned Neuroscience Provider 06/04/20 04/01/23 Diana Desir, [facility] 30[address] [place], [place] 211516 Pharmacist Pharmacist 04/17/21 Rain Galaviz PA-C [address] [place] [address] [address] [facility] [address] Physician Bead Preparer Dermatology 04/28/21 Tavia Wyatt MD [address] [place] [address] [address] [place] [id number] Dermatology 07/14/21 Erica Farrell APRN TUBE LANCER 6405 [facility] [address] [place], [place] 775785 Nurse Practitioner Cardiovascular Disease 09/09/21 Rich Barrett MD [address] 666[address] Physician Ophthalmology 01/21/22 Neil Kent MD 500 [place] [address] Dermatology 02/24/22 Diana Desir, [facility] 30[address] [place] [address] Assigned [place] Pharmacist 04/07/22 Livan Sharif MD [address] [facility]00 [place] [address] Cardiovascular Disease 05/14/22 Catherine Cm MD [address] [place] [address] [place] 870965 Cardiovascular Disease 07/21/22 Valery Veronica, PA-C 909 [place] [address] Physician Bead Preparer Dermatology 07/21/22 Brea Quinn APRN TUBE LANCER 500 [place] [address] Nurse Practitioner Dermatology 09/21/22 Brea Quinn APRN TUBE LANCER 6401 [place] [address] Assigned Surgical Provider 10/09/22 05/01/24 [place] [address] [place] [address] Assigned Musculoskeletal Provider 10/09/22 05/01/24 Catherine Cm MD [address] [place] [address] Assigned Heart and Vascular Provider 11/13/22 05/27/23 Sydnie Martinez RN Personal Advocate & Liaison (PAL) Family Medicine 03/28/23 07/31/23 Alfonso Renteria MD 5775 [facility] [address] [place] [address] Assigned Neuroscience Provider 04/02/23 Cheng Todd PA-C [address] [place] [address] [id number] Assigned PCP 04/30/23 07/15/23 Radha Lomeli APRN TUBE LANCER [address] [place] [address] Assigned Heart and Vascular Provider 05/28/23 Jelena David OD [address] [place] [address] Ophthalmology 06/15/23 Pao Joseph RN Personal Advocate & Liaison (PAL) Nurse 08/01/23 11/07/23 Esha Grimm PA-C [address] [place] [address] Assigned PCP 07/16/23 Valery Veronica PA-C [address] [place] [address] Physician Bead Preparer Dermatology 09/19/23 Rey Tay MD 909 [place] [address] Gastroenterology 09/20/23 Rocky Zepeda DO 500 [place] [address] Physician Gastroenterology 09/20/23 Philip Dumont MD [address] [place] [address] Physician Ophthalmology 09/22/23 Meredith Carrera PA-C [address] [place] [address] Assigned Gastroenterology Provider 11/01/23 Neil Kent MD [address] [address] MD Dermatology 11/02/23 [place] [address] [address] Neurological Surgery 12/26/23 Audrey Waite PA-C 500 [place] [address] Physician Bead Preparer Dermatology 02/28/24 Valery Veronica PA-C 9[address]646 [address] [place] [address] Physician Bead Preparer Dermatology 04/10/24 Herminia Hatch MD [facility]5 [place], [place] 55495[address] Assigned Rheumatology Provider 07/02/24 documented as of this encounter
--- OUTSIDE RECORDS SUMMARY | 2024-07-22 22:44 | XMS_ITS | Encounter Summary ---
Author Organization [facility] Address [address] [place] [address] Care Team Providers Care Workers Compensation Examiner Name Role Phone Diana Desir [facility] Unavailable Rain Galaviz PA-C Unavailable [phone] Tavia Wyatt MD Unavailable Erica Farrell APRN NEWSROOM INTERN Unavailable Rich Barrett MD Unavailable [phone] Neil Kent MD Unavailable Diana Desir [facility] Unavailable Livan Sharif MD Unavailable Catherine Cm MD Unavailable + Valery Veronica-C Unavailable Brea Quinn [employer]ENCH TEACHER NEWSROOM INTERN Unavailable [phone] Brea Quinn [employer]ENCH TEACHER NEWSROOM INTERN Unavailable Jose Francisco Johnson MD Unavailable Sydnie Martinez RN Unavailable Unavailable Alfonso Renteria MD Unavailable [phone] Esha Grimm PA-C Primary Care Provider [phone] Cheng Todd PA-C Unavailable Radha Lomeil APRN NEWSROOM INTERN Unavailable Jelena David OD Unavailable Pao Joseph RN Unavailable Unavailable Esha Grimm PA-C Unavailable [phone] Valery Veronica PA-C Unavailable Rey Tay MD Unavailable Rocky Zepeda DO Unavailable Philip Dumont MD Unavailable [phone] Meredith Carrera PA-C Unavailable Neil Kent MD Unavailable Juan Pablo Emmanuel MD Unavailable Audrey Waite PA-C Unavailable JeremíasValery damon PA-C Unavailable Herminia Hatch MD Unavailable Encounter Details Date Type Department Care Team (Late st Contact Info) Description 07/06/2023 [facility] [address] [place] [address] Esha Grimm PA-C [id number] [place] [address] Social History Tobacco Use Types Packs/Day [...] Score 0 06/20/2023 [facility] - Occupational Stress [...] exercise at this level? 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 Gender Identity Female 03/02/2021 5:45 PM CDT Sexual Orientation Straight 02/28/2020 12 :51 AM CDT documented as of this encounter Plan of Treatment Upcoming Encounters Date Type Department Care Team (Late st Contact Info) Description 10/23/2024 9:30 AM CDT Office Visit [facility] Neurology Clinics [facility] [address] [place] [address], [address] [place] [address] [place] [address] [place] [address] Johnny Penn MD [address] [place] [address] 11/28/2024 7:45 AM CDT Virtual Visit [facility] Gastroenterology Clinic [place] [address] [facility] [address] 4th [place] [address] Meredith Carrera PA-C [address] [place] [address] documented as of this encounter Visit Diagnoses Not on filedocumented in this encounter Additional Health Concerns Infection Onset Date Last Indicated Resolved Time Rule Out COVID-19 12/26/2023 12/26/2023 12/26/2023 9:50 AM CDT Rule Out COVID-19 04/09/2024 04/09/2024 04/10/2024 6:48 PM CDT Assessment Noted Time PHQ-9 Depression Total Score: 4 06/20/20 23 8:40 AM PRODUCTION TRAINER documented as of this encounter Care Teams Workers Compensation Examiner Relationship Specialty Start Date End Date Esha Grimm PA-C [address] [place] [address] PCP - General Family Medicine 05/04/23 Diana Desir, [facility] 3033 [place] [address] Pharmacist Pharmacist 04/17/21 Rain Galaviz PA-C [address] [place] [address] [address] [place] [address] Physician Analysis Mgr Dermatology 04/28/21 Tavia Wyatt MD [address] [place] [address] [address] [place] [address] Dermatology 07/14/21 Erica Farrell APRN NEWSROOM INTERN 6405 [facility] [address] [place], [place] 45[address] Nurse Practitioner Cardiovascular Disease 09/09/21 Rich Barrett MD 516 [facility], [facility] 9[address] [place], [place] [address] Physician Ophthalmology 01/21/22 Neil Kent MD 500 [place], [place] 822295 Dermatology 02/24/22 Diana Desir, [facility] 30[address] [place], [place] 358786 Assigned [facility] Pharmacist 04/07/22 Livan Sharif MD [address], [facility]00 [place] [address] Cardiovascular Disease 05/14/22 Catherine Cm MD 6405 [facility] [address] [address] Cardiovascular Disease 07/21/22 Valery Veronica, PA-C [address] [place] [address] 402815 Physician Analysis Mgr Dermatology 07/21/22 Brea Quinn APRN NEWSROOM INTERN 500 [place], [place] 568475 Nurse Practitioner Dermatology 09/21/22 Brea Quinn APRN NEWSROOM INTERN 6401 [facility] [place] 993332 Assigned Surgical Provider 10/09/22 05/01/24 [place] [address] [place] [address] [place] [address] Assigned Musculoskeletal Provider 10/09/22 05/01/24 Sydnie Martinez RN Personal Advocate & Liaison (PAL) Family Medicine 03/28/23 07/31/23 Alfonso Renteria MD 5775 [facility] 200 [place], [place] 416886 Assigned Neuroscience Provider 04/02/23 Cheng Todd PA-C [address] [place] [address] [phone] Assigned PCP 04/30/23 07/15/23 Radha Lomeli APRN NEWSROOM INTERN 6405 [facility] [address] [place], [place] 8[address]805 Assigned Heart and Vascular Provider 05/28/23 Jelena David OD [address] [place] [address] Ophthalmology 06/15/23 Pao Joseph, VJ Personal Advocate & Liaison (PAL) Nurse 08/01/23 11/07/23 Esha Grimm PA-C [address] [place] [phone] Assigned PCP 07/16/23 Valery Veronica PA-C 909 [place], [place] 233935 Physician Analysis Mgr Dermatology 09/19/23 Rey Tay MD 909 [place], [place] 262185 MD Gastroenterology 09/20/23 Rocky Zepeda DO 500 [place] [address] Physician Gastroenterology 09/20/23 Philip Dumont MD 516 [place], [place] 8[address]05 Physician Ophthalmology 09/22/23 Meredith Carrera PA-C 909 [place], [place] 019615 Assigned Gastroenterology Provider 11/01/23 Neil Kent MD [address] [place] [address] 174100 Dermatology 11/02/23 [place] [address] [place] [facility] [place], [place] 0[address] Neurological Surgery 12/26/23 Audrey Waite PA-C 500 [place] [address] Physician Analysis Mgr Dermatology 02/28/24 Valery Veronica PA-C 868236 [address], [place] [address] Physician Analysis Mgr Dermatology 04/10/24 Herminia Hatch MD [facility] [place] [address] Assigned Rheumatology Provider 07/02/24 documented as of this encounter
--- OUTSIDE RECORDS SUMMARY | 2024-07-22 22:44 | XMS_ITS | Encounter Summary ---
Author Organization [facility] Address [address] [place] [address] Care Team Providers Care Park Maintainer Name Role Phone Diana Desir [facility] Unavailable Rain Galaviz PA-C Unavailable Tavia Wyatt MD Unavailable Erica Farrell APRN ELECTROPHYSIOLOGY TECHNICIAN Unavailable Rich Barrett MD Unavailable [phone] Neil Kent MD Unavailable Diana Desir [facility] Unavailable Livan Sharif MD Unavailable Catherine Cm MD Unavailable + Valery Veronica-C Unavailable [phone] Brea Quinn WHIPPER BEATER ELECTROPHYSIOLOGY TECHNICIAN Unavailable [phone] Brea Quinn WHIPPER BEATER ELECTROPHYSIOLOGY TECHNICIAN Unavailable Jose Francisco Johnson MD Unavailable Sydnie Martinez RN Unavailable Unavailable Alfonso Renteria MD Unavailable [phone] Esah Grimm PA-C Primary Care Provider Radha Lomeli APRN ELECTROPHYSIOLOGY TECHNICIAN Unavailable Jelena David OD Unavailable [phone] Pao Joseph RN Unavailable Unavailable Esha Grimm PA-C Unavailable [phone] Valery Veronica PA-C Unavailable Rey Tay MD Unavailable Rocky Zepeda DO Unavailable Philip Dumont MD Unavailable [phone] Meredith Carrera PA-C Unavailable Neil Kent MD Unavailable Juan Pablo Emmanuel MD Unavailable Audrey Waite PA-C Unavailable [phone] Valery Veronica PA-C Unavailable Herminia Hatch MD Unavailable Encounter Details Date Type Department Care Team (Late st Contact Info) Description 07/27/2023 MyC Medical Advice [address] [address] Diana Desir, [facility] [address] [place] [address] Social History Tobacco Use Types Packs/Day Years [...] do you attend [facility] or sabianism services? 1 to 4 [...] exercise at this level? 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 Gender Identity Female 03/02/2021 5:45 PM CDT Sexual Orientation Straight 02/28/2020 12 :51 AM CDT documented as of this encounter Plan of Treatment Upcoming Encounters Date Type Department Care Team (Late st Contact Info) Description 10/23/2024 9:30 AM CDT Office Visit [facility] Neurology [address], [address] [place] [address] [place] [address] [place] [address] Johnny Penn MD [address] [place] [id number] 11/28/2024 7:45 AM CDT Virtual Visit [facility] Gastroenterology Clinic [address] 4th [place] [phone] Meredith Carrera PA-C [address] [place] [address] documented as of this encounter Visit Diagnoses Not on filedocumented in this encounter Additional Health Concerns Infection Onset Date Last Indicated Resolved Time Rule Out COVID-19 12/26/2023 12/26/2023 12/26/2023 9:50 AM CDT Rule Out COVID-19 04/09/2024 04/09/2024 04/10/2024 6:48 PM CDT Assessment Noted Time PHQ-9 Depression Total Score: 4 06/20/20 23 8:40 AM MOTOR VEHICLE LECTURER documented as of this encounter Care Teams Park Maintainer Relationship Specialty Start Date End Date Esha Grimm PA-C [address] [place] [phone] PCP - General Family Medicine 05/04/23 Diana Desir, [facility] [address] [place], [place] [address] Pharmacist Pharmacist 04/17/21 Rain Galaviz PA-C [address] [place] [address] [address] [facility] [address] Physician Ict Customer Support Officer Dermatology 04/28/21 Tavia Wyatt MD [address] [place] [address] [address] [place] [id number] Dermatology 07/14/21 Erica Farrell APRN ELECTROPHYSIOLOGY TECHNICIAN 6405 [facility] [address] [place] [address] Nurse Practitioner Cardiovascular Disease 09/09/21 Rich Barrett MD 516 [facility] 9[address] [place], [place] 8340[address] Physician Ophthalmology 01/21/22 Neil Kent MD 500 [place], [place] 111615 Dermatology 02/24/22 Diana Desir, [facility] 3033 [place], [place] 498086 Assigned [place] Pharmacist 04/07/22 Livan Sharif MD [address] [facility] [address] [place] 376775 Cardiovascular Disease 05/14/22 Cathreine Cm MD 6405 [facility] [place] [id number] [place] [address] Cardiovascular Disease 07/21/22 Valery Veronica, PA-C 909 [place], [place] 318495 Physician Ict Customer Support Officer Dermatology 07/21/22 Brea Quinn APRN ELECTROPHYSIOLOGY TECHNICIAN 500 [place], [place] 608155 Nurse Practitioner Dermatology 09/21/22 Brea Quinn APRN ELECTROPHYSIOLOGY TECHNICIAN 6401 [facility] [place] [id number] Assigned Surgical Provider 10/09/22 05/01/24 [place] [address] [address] [place] [address] Assigned Musculoskeletal Provider 10/09/22 05/01/24 Sydnie Martinez RN Personal Advocate & Liaison (PAL) Family Medicine 03/28/23 07/31/23 Alfonso Renteria MD 5775 [facility] 200 [place] [address] Assigned Neuroscience Provider 04/02/23 Radha Lomeli APRN ELECTROPHYSIOLOGY TECHNICIAN 6405 [facility] [address] [place] [address] Assigned Heart and Vascular Provider 05/28/23 Jelena David OD [address] [facility] [place] [address] Ophthalmology 06/15/23 Pao Joseph, VJ Personal Advocate & Liaison (PAL) Nurse 08/01/23 11/07/23 Esha Grimm PA-C [address] [place] [phone] Assigned PCP 07/16/23 Valery Veronica PA-C 909 [place], [place] 709935 Physician Ict Customer Support Officer Dermatology 09/19/23 Rey Tay MD 909 [place], [place] 650525 Gastroenterology 09/20/23 Rocky Zepeda DO 500 [place] [address] Physician Gastroenterology 09/20/23 Philip Dumont MD 6 [place] [address] Physician Ophthalmology 09/22/23 Meredith Carrera PA-C [address] [place] [address] Assigned Gastroenterology Provider 11/01/23 Neil Kent MD [address] [address] MD Dermatology 11/02/23 [place] [address] [address] Neurological Surgery 12/26/23 Audrey Waite PA-C 500 [place] [address] Physician Ict Customer Support Officer Dermatology 02/28/24 Valery Veronica PA-C [address] [place] [address] Physician Ict Customer Support Officer Dermatology 04/10/24 Herminia Hatch MD [facility]5 [place], [place] [id number] Assigned Rheumatology Provider 07/02/24 documented as of this encounter
--- OUTSIDE RECORDS SUMMARY | 2024-07-22 22:44 | XMS_ITS | Encounter Summary ---
Author Organization [facility] Address [address] [place] [address] Care Team Providers Care Bag Grader Name Role Phone Diana Desir [facility] Unavailable Rain Galaviz PA-C Unavailable Tavia Wyatt MD Unavailable Erica Farrell APRN CASKET LINER Unavailable Rich Barrett MD Unavailable [phone] Neil [place] MD Unavailable Diana Desir [facility] Unavailable Livan Sharif MD Unavailable Catherine Cm MD Unavailable + Valery Veronica-C Unavailable Brea Quinn FARMER AND GRAZIER CASKET LINER Unavailable [phone] Brea Quinn FARMER [employer] GRAZIER CASKET LINER Unavailable Jose Francisco Johnson MD Unavailable Sydnie Martinez RN Unavailable Unavailable Alfonso Renteria MD Unavailable [phone] Esha Grimm PA-C Primary Care Provider [phone] Cheng Todd PA-C Unavailable Radha Lomeli APRN CASKET LINER Unavailable Jelena David OD Unavailable [phone] Pao Joseph RN Unavailable Unavailable Esha Grimm PA-C Unavailable [phone] Valery Veronica PA-C Unavailable Rey Tay MD Unavailable Rocky Zepeda DO Unavailable Philip Dumont MD Unavailable Meredith Carrera PA-C Unavailable Neil Kent MD Unavailable Juan Pablo Emmanuel MD Unavailable Audrey Waite PA-C Unavailable JeremíasValery damon PA-C Unavailable Herminia Hatch MD Unavailable Encounter Details Date Type Department Care Team (Late st Contact Info) Description 06/17/2023 MyC Medical [facility]ice [facility] [address] [facility], [address] [place] [address] Alfonso Renteria MD 5775 [facility] [address] 200 [place] [address] Social History Tobacco Use Types [...] Score 0 06/20/2023 [facility] - Occupational [...] exercise at this level? 30 min 03/10/2023 [place] Depression Scale Answer Date Recorded [place] Depression Score 5 01/14/2021 Last EPDS Self [...] CDT Legal Sex Female 4:13 AM TOOL OPERATOR Gender Identity Female 03/02/2021 5:45 PM CDT Sexual Orientation Straight 02/28/2020 12 :51 AM CDT documented as of this encounter Miscellaneous Notes * Telephone Encounter - Lulu Xie - 06/28/2023 12:08 PM CST Patient calling to follow up on the below [employer] message. Patient continues to have a lot of dizzyness and neck pain. OPERATOR documented in this encounter Plan of Treatment Upcoming Encounters Date Type Department Care Team (Late st Contact Info) Description 10/23/2024 9:30 AM CDT Office Visit [facility] Neurology [facility] [address], [address] [place] [phone] [place] [address] [place], [place] 7447[address] Johnny Penn MD [address] [place] [id number] 11/28/2024 7:45 AM CDT Virtual Visit [facility] Gastroenterology Clinic [address] 4th [place] [phone] Meredith Carrera PA-C [address] [place] [phone] documented as of this encounter Visit Diagnoses Not on filedocumented in this encounter Additional Health Concerns Infection Onset Date Last Indicated Resolved Time Rule Out COVID-19 12/26/2023 12/26/2023 12/26/2023 9:50 AM CDT Rule Out COVID-19 04/09/2024 04/09/2024 04/10/2024 6:48 PM CDT Assessment Noted Time PHQ-9 Depression Total Score: 6 05/16/20 23 9:29 AM TOOL OPERATOR documented as of this encounter Care Teams Bag Grader Relationship Specialty Start Date End Date Esha Grimm PA-C [address] [place] [phone] PCP - General Family Medicine 05/04/23 Diana Desir, [facility] [address] [place], [place] [address] Pharmacist Pharmacist 04/17/21 Rain Galaviz PA-C [address] [place] [address] [address] [place] [id number] Physician Insights Strategist Dermatology 04/28/21 Tavia Wyatt MD [address] [place] [address] DR [address] [facility] [place] [id number] Dermatology 07/14/21 Erica Farrell APRN CASKET LINER [address] [place] [address] Nurse Practitioner Cardiovascular Disease 09/09/21 Rich Barrett MD [address] [place] [address] Physician Ophthalmology 01/21/22 Neil Kent MD [address] [place] [address] 4747[address] Dermatology 02/24/22 Diana Desir, [facility] 3033 [place], [place] 609456 Assigned [facility] Pharmacist 04/07/22 Livan Sharif MD [address] [address] Cardiovascular Disease 05/14/22 Catherine Cm MD [address] [place] [id number] Cardiovascular Disease 07/21/22 Valery Veronica, PAUcheC [address] [place] [address]44[address] Physician Insights Strategist Dermatology 07/21/22 Brea Quinn APRN CASKET LINER 500 [place] [address] Nurse Practitioner Dermatology 09/21/22 Brea Quinn APRN CASKET LINER 6401 [facility] [place] [address] Assigned Surgical Provider 10/09/22 05/01/24 [place] [address] [place] [facility] 300 [place] [address] Assigned Musculoskeletal Provider 10/09/22 05/01/24 Sydnie Martinez RN Personal Advocate & Liaison (PAL) Family Medicine 03/28/23 07/31/23 Alfonso Renteria MD 5775 [facility] 200 [place] [address] Assigned Neuroscience Provider 04/02/23 Cheng Todd PA-C [address] [place] [address] [phone] Assigned PCP 04/30/23 07/15/23 Radha Lomeli APRN CASKET LINER 6405 [facility] [address] [place] [address] Assigned Heart and Vascular Provider 05/28/23 Jelena David OD [address] [place] [address] Ophthalmology 06/15/23 Pao Joseph, VJ Personal Advocate & Liaison (PAL) Nurse 08/01/23 11/07/23 Esha Grimm PA-C [address] [place] [address] Assigned PCP 07/16/23 Valery Veronica PA-C [address] [place] [address]805 Physician Insights Strategist Dermatology 09/19/23 Rey Tay MD [address] [place] [address] [id number] MD Gastroenterology 09/20/23 Rocky Zepeda DO [address] [place] [address] 521575 Physician Gastroenterology 09/20/23 Philip Dumont MD [address] [place] [address] 327665 Physician Ophthalmology 09/22/23 Meredith Carrera PA-C [address] [place] [address] Assigned Gastroenterology Provider 11/01/23 Neil Kent MD [address] [address] Dermatology 11/02/23 [place] [address] [place] [address] Neurological Surgery 12/26/23 Audrey Waite PA-C [address] [place] [address] Physician Insights Strategist Dermatology 02/28/24 Valery Veronica, [place] [address] [place] [address] Physician Insights Strategist Dermatology 04/10/24 Herminia Hatch MD [address] [place] [address] [id number] Assigned Rheumatology Provider 07/02/24 documented as of this encounter
--- OUTSIDE RECORDS SUMMARY | 2024-07-22 22:44 | XMS_ITS | Encounter Summary ---
Author Organization [facility] Address [address] [place] [address] Care Team Providers Care Community Development Planner Name Role Phone Diana Desir [facility] Unavailable Rain Galaviz PA-C Unavailable Tavia Wyatt MD Unavailable Erica Farrell APRN [employer] Unavailable Rich Barrett MD Unavailable [phone] Neil Kent MD Unavailable Diana Desir [facility] Unavailable Livan Sharif MD Unavailable Catherine Cm MD Unavailable + Valery Veronica-C Unavailable Brea Quinn TRAFFIC ENGINEERING DIRECTOR [employer] Unavailable Brea Quinn TRAFFIC ENGINEERING DIRECTOR [employer] Unavailable Jose Francisco Johnson MD Unavailable Sydnie Martinez RN Unavailable Unavailable Alfonso Renteria MD Unavailable [phone] Esha Grimm PA-C Primary Care Provider [phone] Cheng Todd PA-C Unavailable [phone] Radha Lomeli APRN [employer] Unavailable Jelena David OD Unavailable [phone] Pao Joseph RN Unavailable Unavailable Esha Grimm PA-C Unavailable [phone] Valery Veronica PA-C Unavailable Rey Tay MD Unavailable Rocky Zepeda DO Unavailable Philip Dumont MD Unavailable Meredith Carrera PA-C Unavailable [phone] Neil Kent MD Unavailable Juan Pablo Emmanuel MD Unavailable Audrey Waite PA-C Unavailable JeremíasValery damon PA-C Unavailable Herminia Hatch MD Unavailable Encounter Details Date Type Department Care Team (Late st Contact Info) Description 07/06/2023 MyC Medical [facility]ice [facility] [address] [facility], [address] [place] [address] Alfonso Renteria MD 5775 [facility] [address] 200 [place] [address] Social History Tobacco Use Types [...] PHQ-2 Score 0 06/20/2023 [facility] [...] exercise at this level? 30 min 03/10/2023 [place] Depression Scale Answer Date Recorded [place] Depression Score 5 01/14/2021 Last EPDS Self [...] in an overnight prison, or couch-surfing.) Yes 06/20/2023 Are you worried [...] PM CDT Legal Sex Female 4:13 AM VARITYPIST Gender Identity Female 03/02/2021 5:45 PM CDT Sexual Orientation Straight 02/28/2020 12 :51 AM CDT documented as of this encounter Miscellaneous Notes * Telephone Encounter - Genny Hyman PA-C - 07/07/2023 11:13 AM VARITYPIST No lesions/abnormal findings on MRI to account for possible seizure activity. Last office note indicated: If repeat MRI was normal would reduce levetiracetam to 250 mg per day for two weeks and then stop. Ok to proceed with this plan. Call if questions, concerns, or worsening of symptoms with discontinuation of the medication Genny Hyman PA-C TYPIST documented in this encounter Plan of Treatment Upcoming Encounters Date Type Department Care Team (Late st Contact Info) Description 10/23/2024 9:30 AM CDT Office Visit [facility] Neurology [facility] [address] [facility], [address] [place] [address] [place] [address] [place] [address] Johnny Penn MD 6542 [place], [place] 882665 11/28/2024 7:45 AM CDT Virtual Visit [facility] Gastroenterology Clinic [address] 4th [place] [phone] Meredith Carrera PA-C [address] [place] [address] 148565 documented as of this encounter Visit Diagnoses Not on filedocumented in this encounter Additional Health Concerns Infection Onset Date Last Indicated Resolved Time Rule Out COVID-19 12/26/2023 12/26/2023 12/26/2023 9:50 AM CDT Rule Out COVID-19 04/09/2024 04/09/2024 04/10/2024 6:48 PM CDT Assessment Noted Time PHQ-9 Depression Total Score: 4 06/20/20 23 8:40 AM VARITYPIST documented as of this encounter Care Teams Community Development Planner Relationship Specialty Start Date End Date Esha Grimm PA-C [address] [place] [address] PCP - General Family Medicine 05/04/23 Diana Desir, [facility] [address] [place], [place] [address]8816 Pharmacist Pharmacist 04/17/21 Rain Galaviz PA-C [address] [place] [address] [address] [place] [address] Physician Smearer Dermatology 04/28/21 Tavia Wyatt MD [address] [place] [address] [address] [place] [address] Dermatology 07/14/21 Erica Farrell APRN [employer] [address] [place] [address] Nurse Practitioner Cardiovascular Disease 09/09/21 Rich Barrett MD [address] [address] Physician Ophthalmology 01/21/22 Neil Kent MD 500 [place], [place] [address]275 Dermatology 02/24/22 Diana Desir, [facility] 3033 [place] [address] Assigned [place] Pharmacist 04/07/22 Livan Sharif MD [address] [place] 8[address]95 Cardiovascular Disease 05/14/22 Catherine Cm MD [address] [place] [address] Cardiovascular Disease 07/21/22 Valery Veronica PA-C 909 [place] [address] Physician Smearer Dermatology 07/21/22 Brea Quinn APRN [employer] 500 [place] [address] Nurse Practitioner Dermatology 09/21/22 Brea Quinn APRN [employer] [address] [place] 225762 Assigned Surgical Provider 10/09/22 05/01/24 [place] [address] [address] [facility] 300 [place] [address] Assigned Musculoskeletal Provider 10/09/22 05/01/24 Sydnie Martinez RN Personal Advocate & Liaison (PAL) Family Medicine 03/28/23 07/31/23 Alfonso Renteria MD 5775 [facility] 200 [place] [address] Assigned Neuroscience Provider 04/02/23 Cheng Todd PA-C [address] [place] [address] [phone] Assigned PCP 04/30/23 07/15/23 Radha Lomeli APRN [employer] 6[address] [facility] [address] [place] [address] Assigned Heart and Vascular Provider 05/28/23 Jelena David OD [address] [facility] [place] [address] MD Ophthalmology 06/15/23 Pao Joseph, RN Personal Advocate & Liaison (PAL) Nurse 08/01/23 11/07/23 Esha Grimm PA-C [address] [place] [address] Assigned PCP 07/16/23 Valery Veronica PA-C [address] [place] [address] Physician Smearer Dermatology 09/19/23 Rey Tay MD [address] [place] [address] MD Gastroenterology 09/20/23 Rocky Zepeda DO [address] [place] [address] Physician Gastroenterology 09/20/23 Philip Dumont MD [address] [place] [address] Physician Ophthalmology 09/22/23 Meredith Carrera PA-C [address] [place] [address] Assigned Gastroenterology Provider 11/01/23 Neil Kent MD [address] [place] [address] 289620 Dermatology 11/02/23 [place] [address] [place] [address] Neurological Surgery 12/26/23 Audrey Waite PA-C 500 [place] [address] Physician Smearer Dermatology 02/28/24 Valery Veronica PA-C 131306 99 [place] [address] Physician Smearer Dermatology 04/10/24 Herminia Hatch MD [address] [place] [address] [phone] Assigned Rheumatology Provider 07/02/24 documented as of this encounter
--- OUTSIDE RECORDS SUMMARY | 2024-07-22 22:44 | XMS_ITS | Encounter Summary ---
Author Organization [place] Address [address] [place] [address] Care Team Providers Care Program And Research Coordinator Name Role Phone Marija Edgar APRN [employer] PRINT SHOP Primary Care Provider + Marija Edgar APRN [employer] Unavailable [phone] Diana Desir [facility] Unavailable Rain Galaviz PA-C Unavailable Tavia Wyatt MD Unavailable Erica Farrell APRN [employer] Unavailable Rich Barrett MD Unavailable [phone] Neil Kent MD Unavailable Diana Desir [facility] Unavailable Livan Sharif MD Unavailable Catherine Cm MD Unavailable + Valery Veronica PA-C Unavailable Brea Quinn APRN [employer] Unavailable Brea Quinn APRN [employer] Unavailable Jose Francisco Johnson MD Unavailable Catherine Cm MD Unavailable + Sydnie Martinez RN Unavailable Unavailable Alfonso Renteria MD Unavailable [phone] Esha Grimm PA-C Primary Care Provider Cheng Todd PA-C Unavailable Radha Lomeli APRN [employer] Unavailable Jelena David OD Unavailable [phone] Pao Joseph RN Unavailable Unavailable Esha Grimm PA-C Unavailable [phone] Valery Veronica PA-C Unavailable Rey Tay MD Unavailable Rocky Zepeda DO Unavailable Philip Dumont MD Unavailable [phone] Meredith Carrera PA-C Unavailable Neil Kent MD Unavailable Juan Pablo Emmanuel MD Unavailable Audrey Waite PA-C Unavailable JeremíasValery damon PA-C Unavailable [phone] Herminia Hatch MD Unavailable Encounter Details Date Type Department Care Team (Late st Contact Info) Description 04/12/2023 [facility] Medical Advice [facility] [address] [place] [address] Livan Sharif MD [address] [place] [address] Social History Tobacco Use Types [...] 03/10/2023 How often do you attend [facility] or evangelical services? 1 to 4 times [...] Answer Date Recorded PHQ-2 Score 0 03/10/2023 [facility] [place] of Occupat ional Health - Occupational Stress [...] in a care home (including now)? 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 Kim Swann, We are in [place], but asked a tech here to check the photo. He said the spot you chose is OK but he thinks we should have the [employer] techs check in with you as you may need to have some extra prep gelif you have have issues with the pads. We are reaching out to that [employer] team to let them know you are having some issues. Team [address] [place] [address] Sharif [phone] documented in this encounter Plan of Treatment Upcoming Encounters Date Type Department Care Team (Late st Contact Info) Description 10/23/2024 9:30 AM CDT Office Visit [address], [address] [place] [address] [place] [address] [place], [place] [phone] Johnny Penn MD [address] [place] [address] 11/28/2024 7:45 AM CDT Virtual Visit [facility] Gastroenterology Clinic [address] 4th [place] [phone] Meredith Carrera PA-C [address] [place] [address] documented as of this encounter Visit Diagnoses Not on filedocumented in this encounter Additional Health Concerns Infection Onset Date Last Indicated Resolved Time Rule Out COVID-19 12/26/2023 12/26/2023 12/26/2023 9:50 AM CDT Rule Out COVID-19 04/09/2024 04/09/2024 04/10/2024 6:48 PM CDT Assessment Noted Time PHQ-9 Depression Total Score: 5 03/10/20 6:49 AM CDT documented as of this encounter Care Teams Program And Research Coordinator Relationship Specialty Start Date End Date Marija Edgar APRN [employer] PCP - General Nurse Practitioner 04/30/20 04/14/23 Esha Grimm PA-C [address] [place] [address] PCP - General Family Medicine 05/04/23 Marija Edgar APRN [employer] Assigned PCP 06/08/20 04/29/23 Diana Desir, [facility] 3033 [place] [address] Pharmacist Pharmacist 04/17/21 Rain Galaviz PA-C [address] [place] [address] [address] [place] [address] Physician Fluoroscope Operator Dermatology 04/28/21 Tavia Wyatt MD [address] [place] [address] DR [address] Lara [facility] [address] Dermatology 07/14/21 Erica Farrell APRN [employer] [address] [place] [address] Nurse Practitioner Cardiovascular Disease 09/09/21 Rich Barrett MD [address] [place] [address] 9[address] [place], [place] 2[address]35 Physician Ophthalmology 01/21/22 Neil Kent MD 500 [place] [address] Dermatology 02/24/22 [facility] 3033 [place] [address] Assigned MTM Pharmacist 04/07/22 Livan Sharif MD [address], [facility] [address] [place] [address] Cardiovascular Disease 05/14/22 Catherine Cm MD [address] [place] [address] Cardiovascular Disease 07/21/22 Valery Veronica PA-C 909 [place] [address] Physician Fluoroscope Operator Dermatology 07/21/22 Brea Quinn APRN [employer] 500 [place] [address] Nurse Practitioner Dermatology 09/21/22 Brea Quinn APRN [employer] [address] [place] [address] Assigned Surgical Provider 10/09/22 05/01/24 [place] [address] [facility] 300 [place] [address] Assigned Musculoskeletal Provider 10/09/22 05/01/24 Catherine Cm MD [address] [place] [id number] [place] [address] Assigned Heart and Vascular Provider 11/13/22 05/27/23 Sydnie Martinez RN Personal Advocate & Liaison (PAL) Family Medicine 03/28/23 07/31/23 Alfonso Renteria MD 5775 [facility] 200 [place], [place] 435156 Assigned Neuroscience Provider 04/02/23 Cheng Todd PA-C [address] [place] [address] [phone] Assigned PCP 04/30/23 07/15/23 Armani Radha ARLENE Stovall [employer] [address] [facility] [address] [place], [place] 486435 Assigned Heart and Vascular Provider 05/28/23 Jelena David OD [address] [facility] [address] [place] [id number] MD Ophthalmology 06/15/23 Pao Joseph, [place] Personal Advocate & Liaison (PAL) Nurse 08/01/23 11/07/23 Esha Grimm PA-C [address] [place] [phone] Assigned PCP 07/16/23 Valery Veronica PA-C [address] [place] [address] Physician Fluoroscope Operator Dermatology 09/19/23 Rey Tay MD [address] [place] [address] 659735 Gastroenterology 09/20/23 Rocky Zepeda DO [address] [place] [address] 366385 Physician Gastroenterology 09/20/23 Philip Dumont MD [address] [place] [address] 908025 Physician Ophthalmology 09/22/23 Meredith Carrera PA-C [address] [place] [address] 272445 Assigned Gastroenterology Provider 11/01/23 Neil Kent MD [address] [address] Dermatology 11/02/23 [place] [address] 799847 Neurological Surgery 12/26/23 Audrey Waite PA-C 500 [place] [address] Physician Fluoroscope Operator Dermatology 02/28/24 Valery Veronica PA-C 9[address]480 [place] [address] Physician Fluoroscope Operator Dermatology 04/10/24 Herminia Hatch MD [facility]5 [place], [place] [phone] Assigned Rheumatology Provider 07/02/24 documented as of this encounter
--- OUTSIDE RECORDS SUMMARY | 2024-07-22 22:44 | XMS_ITS | Encounter Summary ---
Author Organization [place] Address [address] [place] [address] Care Team Providers Care Middle [employer] Sports Coach Name Role Phone Lita Oseguera Unavailable Unavailable Marija Edgar APRN MANAGER SECURITY AND SAFETY Primary Care Provider + Marija Edgar APRN MANAGER SECURITY AND SAFETY Unavailable [phone] Keisha Dotson MD Unavailable [phone] Diana Des[address] [facility] Unavailable Rain Galaviz PA-C Unavailable Tavia Wyatt MD Unavailable Erica Farrell APRN MANAGER SECURITY AND SAFETY Unavailable Rich Barrett MD Unavailable [phone] Neil Kent MD Unavailable Diana Desir [facility] Unavailable Livan Sharif MD Unavailable Catherine Cm MD Unavailable + Valery Veronica PA-C Unavailable [phone] Brea Quinn HYDRAMATIC SPECIALIST MANAGER SECURITY AND SAFETY Unavailable Brea Quinn HYDRAMATIC SPECIALIST MANAGER SECURITY AND SAFETY Unavailable Jose Francisco Johnson MD Unavailable Catherine Cm MD Unavailable + Sydnie Martinez RN Unavailable Unavailable Alfonso Renteria MD Unavailable [phone] Esha Grimm PA-C Primary Care Provider [phone] Cheng Todd PA-C Unavailable Radha Lomeli APRN MANAGER SECURITY AND SAFETY Unavailable Jelena David OD Unavailable Pao Jospeh RN Unavailable Unavailable Esha Grimm PA-C Unavailable [phone] Valery Veronica PA-C Unavailable Rey Tay MD Unavailable Rocky Zepeda DO Unavailable Philip Dumont MD Unavailable Meredith Carrera PA-C Unavailable Neil Kent MD Unavailable Juan Pablo Emmanuel MD Unavailable Audrey Waite PA-C Unavailable [phone] JeremíasValery damon PA-C Unavailable Herminia Hatch MD Unavailable Encounter Details Date Type Department Care Team (Late st Contact Info) Description 12/23/2022 [facility] [place] Medical Advice [facility] [address] [place] [address] Lauren Claudio PA-C [address] [place] [address] Social History Tobacco Use Types [...] How often do you attend yazdanism or jewish serv ices? Never 09/22/2021 Do [...] Answer Date Recorded PHQ-2 Score 1 10/11/2022 [place] of Occupat ional Health - Occupational Stress [...] a nursing home (including now)? No 09/22/2021 [place] Depression Scale Answer Date Recorded [place] Depression Score 5 01/14/2021 Last EPDS Self Harm Result Not on file 01/14 Education Answer Date Recorded What is the highest level of school you have completed or the highest degree you have received? 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 STITCH SEPARATOR Gender Identity Female 03/02/2021 5:45 PM CDT [...] [facility] Neurology Clinics [facility] [address] [place] [address], [address] [place] [address] [place] [address] [facility] [place] [address] Johnny Penn MD [address] [facility] [place] [address] 11/28/2024 7:45 AM CDT Virtual Visit [facility] Gastroenterology Clinic [address] 4th [place] [address] Meredith Carrera PA-C [address] [place] [address] documented as of this encounter Visit [...] documented as of this encounter Care Teams Middle [employer] Sports Coach Relationship Specialty Start Date End Date Marija Edgar APRN MANAGER SECURITY AND SAFETY PCP - General Nurse Practitioner 04/30/20 04/14/23 Esha Grimm PA-C [address] [place] [address] PCP - General Family Medicine 05/04/23 Lita Oseguera Personal Advocate & Liaison (PAL) 02/28/20 03/27/23 Marija Edgar APRN MANAGER SECURITY AND SAFETY Assigned PCP 06/08/20 04/29/23 Keisha Dotson MD 909 [place] [address] Assigned Neuroscience Provider 06/04/20 04/01/23 [facility] 3033 [place], [place] [address]46 Pharmacist Pharmacist 04/17/21 Rain Galaviz PA-C [address] [place] [address] [address] [facility] [address] Physician Clothing Sales Assistant Dermatology 04/28/21 Tavia Wyatt MD [address] [place] [address] [address] [place] [address] Dermatology 07/14/21 Erica Farrell APRN MANAGER SECURITY AND SAFETY [address] [place] [address] Nurse Practitioner Cardiovascular Disease 09/09/21 Rich Barrett MD 516 [facility] CLINIC 9A [place], [place] 8[address] Physician Ophthalmology 01/21/22 Neil Kent MD 500 [place] [address] Dermatology 02/24/22 [facility] 3033 [place] [address] Assigned [place] Pharmacist 04/07/22 Livan Sharif MD [address], [facility] [address] [place], [place] [address] Cardiovascular Disease 05/14/22 Catherine Cm MD 6405 [facility]00 [place], [place] [address] Cardiovascular Disease 07/21/22 Valery Veronica, PA-C 909 [place] [address] Physician Clothing Sales Assistant Dermatology 07/21/22 Brea Quinn APRN MANAGER SECURITY AND SAFETY 500 [place] [address] Nurse Practitioner Dermatology 09/21/22 Brea Quinn APRN MANAGER SECURITY AND SAFETY 6401 [place] [address] Assigned Surgical Provider 10/09/22 05/01/24 [place] [address] [place] [address] Assigned Musculoskeletal Provider 10/09/22 05/01/24 Catherine Cm MD [address] [place] [address] Assigned Heart and Vascular Provider 11/13/22 05/27/23 Sydnie Martinez RN Personal Advocate & Liaison (PAL) Family Medicine 03/28/23 07/31/23 Alfonso Renteria MD 5775 [facility] 200 [place] [address] Assigned Neuroscience Provider 04/02/23 Cheng Todd PA-C [address] [place] [address] [id number] Assigned PCP 04/30/23 07/15/23 Radha Lomeli APRN MANAGER SECURITY AND SAFETY [address] [place] [address] Assigned Heart and Vascular Provider 05/28/23 Jelena David OD 3305 [facility] [place] [address] Ophthalmology 06/15/23 Pao Joseph, V[place] Personal Advocate & Liaison (PAL) Nurse 08/01/23 11/07/23 Esha Grimm PA-C [address] [place] [address] Assigned PCP 07/16/23 Valery Veronica PA-C 9 [place] [address] Physician Clothing Sales Assistant Dermatology 09/19/23 Rey Tay MD 9 [place] [address] MD Gastroenterology 09/20/23 Rocky Zepeda DO 500 [place] [address] Physician Gastroenterology 09/20/23 Philip Dumont MD 6 [place] [address] Physician Ophthalmology 09/22/23 Meredith Carrera PA-C [address] [place] [address] Assigned Gastroenterology Provider 11/01/23 Neil Kent MD [address] [address] Dermatology 11/02/23 [place] [address] [address] [facility] [place] 4449[address] Neurological Surgery 12/26/23 Audrey Waite PA-C 500 [place] [address] Physician Clothing Sales Assistant Dermatology 02/28/24 Valery Veronica PA-C 689655 [place] [address] Physician Clothing Sales Assistant Dermatology 04/10/24 Herminia Hatch MD [address] [place] [address] Assigned Rheumatology Provider 07/02/24 documented as of this encounter
--- OUTSIDE RECORDS SUMMARY | 2024-07-22 22:44 | XMS_ITS | Encounter Summary ---
Author Organization [place] Address [address] [place] [address] Care Team Providers Care Goat Herder Name Role Phone Lita Oseguera Unavailable Unavailable Marija Edgar APRN MANAGER INVENTORY CONTROL Primary Care Provider + Marija Edgar APRN MANAGER INVENTORY CONTROL Unavailable [phone] Keisha Dotson MD Unavailable [phone] Diana Desir [facility] Unavailable [phone] Rain Galaviz PA-C Unavailable Tavia Wyatt MD Unavailable Erica Farrell APRN MANAGER INVENTORY CONTROL Unavailable Rich Barrett MD Unavailable [phone] Neil Kent MD Unavailable Diana Desir [facility] Unavailable Livan Sharif MD Unavailable Catherine Cm MD Unavailable + Valery Veronica PA-C Unavailable [phone] Brea Quinn STUDY COORDINATOR MANAGER INVENTORY CONTROL Unavailable Brea Quinn STUDY COORDINATOR MANAGER INVENTORY CONTROL Unavailable Jose Francisco Johnson MD Unavailable Catherine Cm MD Unavailable + Sydnie Martinez RN Unavailable Unavailable Alfonso Renteria MD Unavailable [phone] Esha Grimm PA-C Primary Care Provider Cheng Todd PA-C Unavailable Radha Lomeli APRN MANAGER INVENTORY CONTROL Unavailable Jelena David OD Unavailable Pao Joseph RN Unavailable Unavailable Esha Grimm PA-C Unavailable [phone] Valery Veronica PA-C Unavailable Rey Tay MD Unavailable Rocky Zepeda DO Unavailable Philip Dumont MD Unavailable [phone] Meredith Carrera PA-C Unavailable Neil Kent MD Unavailable Juan Pablo Emmanuel MD Unavailable [phone] Audrey Waite PA-C Unavailable [phone] JeremíasValery damon PA-C Unavailable [phone] Herminia Hatch MD Unavailable Encounter Details Date Type Department Care Team (Late st Contact Info) Description 01/10/2023 [facility] Medical Advice [facility] [address] [place] [address] Lauren Claudio PA-C [address] [place] [address] Social History Tobacco Use Types [...] How often do you attend uatsdin or mosque serv ices? Never 09/22/2021 Do [...] Answer Date Recorded PHQ-2 Score 1 10/11/2022 [place] of Occupat ional Health - [...] in a jail (including now)? No 09/22/2021 [place] Depression Scale Answer Date Recorded [place] Depression Score 5 01/14/2021 Last EPDS Self Harm Result Not on file 01/14 Education Answer Date Recorded What is the highest level of school you have completed or the highest degree you have received? 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 AIR INTELLIGENCE SPECIALIST Gender Identity Female 03/02/2021 5:45 PM [...] - 02/03/2023 11:52 AM CDT Incoming call Ironer: [place] [facility] referral following up on [facility] med information that is needed to be faxed at [phone] Erica David MA documented in this encounter Plan of Treatment Upcoming Encounters Date Type Department Care Team (Late st Contact Info) Description 10/23/2024 9:30 AM CDT Office Visit [facility] - [address], [address] [place] [address] [place] [address] [address] Johnny Penn MD 26[address] [facility] [address] [place] [id number] 11/28/2024 7:45 AM CDT Virtual Visit [facility] [address] 4th [place] [phone] Meredith Carrera PA-C [address] [place] [address] documented as of this encounter Visit Diagnoses [...] documented as of this encounter Care Teams Goat Herder Relationship Specialty Start Date End Date Marija Edgar APRN MANAGER INVENTORY CONTROL PCP - General Nurse Practitioner 04/30/20 04/14/23 Esha Grimm PA-C [address] [place] [address] PCP - General Family Medicine 05/04/23 Lita Oseguera Personal Advocate & Liaison (PAL) 02/28/20 03/27/23 Marija Edgar APRN MANAGER INVENTORY CONTROL Assigned PCP 06/08/20 04/29/23 Keisha Dotson MD [address] [place] [address] Assigned Neuroscience Provider 06/04/20 04/01/23 Diana Desir, [facility] [address] [place] [address] Pharmacist Pharmacist 04/17/21 Rain Galaviz PA-C [address] [place] [address] [address] [place] [address] Physician Marketing Trainee Dermatology 04/28/21 Tavia Wyatt MD [address] [place] [address] [address] [place] [address] Dermatology 07/14/21 Erica Farrell APRN MANAGER INVENTORY CONTROL [address] [place] [address]64[address] Nurse Practitioner Cardiovascular Disease 09/09/21 Rich Barrett MD 516 [facility] 9A [place], [place] [address] Physician Ophthalmology 01/21/22 Neil Kent MD 500 [place], [place] 15[address]15 Dermatology 02/24/22 [facility] [address] [place] [address] Assigned MTM Pharmacist 04/07/22 Livan Sharif MD [address] [place] [address] Cardiovascular Disease 05/14/22 Catherine Cm MD 6405 [facility] [address] [place] [address] Cardiovascular Disease 07/21/22 Valery Veronica PA-C [address] [place] [address] Physician Marketing Trainee Dermatology 07/21/22 Brea Quinn APRN MANAGER INVENTORY CONTROL 500 [place] [address] Nurse Practitioner Dermatology 09/21/22 Brea Quinn APRN MANAGER INVENTORY CONTROL 6401 [place] [address] Assigned Surgical Provider 10/09/22 05/01/24 [place] [address] [facility] 300 [place], [place] 708637 Assigned Musculoskeletal Provider 10/09/22 05/01/24 Catherine Cm MD [address] [facility] [address] [place] [address] Assigned Heart and Vascular Provider 11/13/22 05/27/23 Sydnie Martinez RN Personal Advocate & Liaison (PAL) Family Medicine 03/28/23 07/31/23 Alfonso Renteria MD [address] [facility] [facility] 200 [place], [place] [address]56 Assigned Neuroscience Provider 04/02/23 Cheng Todd PA-C [address] [place] [address] [id number] Assigned PCP 04/30/23 07/15/23 Radha Lomeli APRN CNP 6[address] [facility] [address] [place] [address] Assigned Heart and Vascular Provider 05/28/23 Jelena David OD [address] [place] [address] MD Ophthalmology 06/15/23 Pao Joseph, VJ Personal Advocate & Liaison (PAL) Nurse 08/01/23 11/07/23 Esha Grimm PA-C [address] [place] [phone] Assigned PCP 07/16/23 Valery Veronica PA-C [address] [place] [address] 842835 Physician Marketing Trainee Dermatology 09/19/23 Rey Tay MD [address] [place] [address] 514195 Gastroenterology 09/20/23 Rocky Zepeda DO [address] [place] [address] 011815 Physician Gastroenterology 09/20/23 Philip Dumont MD [address] [place] [address] 290195 Physician Ophthalmology 09/22/23 Meredith Carrera PA-C [address] [place] [address] Assigned Gastroenterology Provider 11/01/23 Neil Kent MD [address] [address] Dermatology 11/02/23 [place] [address] [address] Neurological Surgery 12/26/23 Audrey Waite PA-C 500 [place] [address] Physician Marketing Trainee Dermatology 02/28/24 Valery Veronica PA-C 786284 [place], [place] [address] Physician Marketing Trainee Dermatology 04/10/24 Herminia Hatch MD [facility]5 [place], [place] [phone] Assigned Rheumatology Provider 07/02/24 documented as of this encounter
--- OUTSIDE RECORDS SUMMARY | 2024-07-22 22:44 | XMS_ITS | Encounter Summary ---
Author Organization [facility] Address [address] [place] [address] Care Team Providers Care Import/Export Freight Forwarder Name Role Phone Marija Edgar ARLENE PILOT BOAT DECKHAND Unavailable [phone] [facility] Unavailable Rain Galaviz PA-C Unavailable [phone] Tavia Wyatt MD Unavailable Erica Farrell APRN PILOT BOAT DECKHAND Unavailable Rich Barrett MD Unavailable [phone] Neil Kent MD Unavailable Diana Desir [facility] Unavailable Livan Sharif MD Unavailable Catherine Cm MD Unavailable + Valery Veronica PA-C Unavailable Brea Quinn APRN PILOT BOAT DECKHAND Unavailable Brea Quinn APRN PILOT BOAT DECKHAND Unavailable Jose Francisco Johnson MD Unavailable Catherine Cm MD Unavailable + Sydnie Martinez RN Unavailable Unavailable Alfonso Renteria MD Unavailable [phone] Esha Grimm PA-C Primary Care Provider Cheng Todd PA-C Unavailable Radha Lomeli APRN PILOT BOAT DECKHAND Unavailable Jelena David OD Unavailable Pao Joseph RN Unavailable Unavailable Esha Grimm PA-C Unavailable [phone] Valery Veronica PA-C Unavailable Rey Tay MD Unavailable Rocky Zepeda DO Unavailable Philip Dumont MD Unavailable Meredith Carrera PA-C Unavailable Neil Kent MD Unavailable Juan Pablo Emmanuel MD Unavailable Audrey Waite PA-C Unavailable Valery Veronica-C Unavailable Herminia Hatch MD Unavailable Encounter Details Date Type Department Care Team (Late st Contact Info) Description 04/18/2023 MyC Medical Advice [facility] [address] [address] Mary Calvo Social History Tobacco [...] you attend [facility] or muslim services? 1 to 4 times [...] Answer Date Recorded PHQ-2 Score 0 03/10/2023 [facility] of Occupat ional [...] in an overnight correction, or couch-surfing.) Yes 04/18/2023 Are you worried [...] PM CDT Legal Sex Female 4:13 AM RETREAD BUILDER Gender Identity Female 03/02/2021 5:45 PM CDT [...] Description 10/23/2024 9:30 AM CDT Office Visit [facility] Neurology [address], [address] [place] [id number] [place] [address] [place] [address] Johnny Penn MD 9466 [place] [address] 11/28/2024 7:45 AM CDT Virtual Visit [facility] [address] 4th [place] [address] Meredith Carrera PA-C [address] [place] [address] 986505 documented as of this encounter Visit Diagnoses Not on filedocumented in this encounter Additional Health Concerns Infection Onset Date Last Indicated Resolved Time Rule Out COVID-19 12/26/2023 12/26/2023 12/26/2023 9:50 AM CDT Rule Out COVID-19 04/09/2024 04/09/2024 04/10/2024 6:48 PM CDT Assessment Noted Time PHQ-9 Depression Total Score: 5 03/10/20 6:49 AM CDT documented as of this encounter Care Teams Import/Export Freight Forwarder Relationship Specialty Start Date End Date Esha Grimm PA-C [address] [place] [address] PCP - General Family Medicine 05/04/23 Marija Edgar APRN PILOT BOAT DECKHAND Assigned PCP 06/08/20 04/29/23 Diana Desir, [facility] [address] [place], [place] 7217[address] Pharmacist Pharmacist 04/17/21 Rain Galaviz PA-C [address] [place] [address] [address] [place] [address] Physician Geosciences Faculty Member Dermatology 04/28/21 Tavia Wyatt MD [address] [place] [address] [address] [place] [address] Dermatology 07/14/21 Erica Farrell APRN PILOT BOAT DECKHAND [address] [place] 676795 Nurse Practitioner Cardiovascular Disease 09/09/21 Rich Barrett MD [address] [place] [address] [address] [place], [place] 243965 Physician Ophthalmology 01/21/22 Neil Kent MD 500 [place], [place] 797085 Dermatology 02/24/22 Diana Desir, [facility] [address] [place] [address] Assigned MTM Pharmacist 04/07/22 Livan Sharif MD [address] [place] 770655 Cardiovascular Disease 05/14/22 Catherine Cm MD [address] [place] 171125 Cardiovascular Disease 07/21/22 Valery Veronica PA-C 909 [place] [address] Physician Geosciences Faculty Member Dermatology 07/21/22 Brea Quinn APRN PILOT BOAT DECKHAND 500 [place], [place] 793375 Nurse Practitioner Dermatology 09/21/22 Brea Quinn APRN PILOT BOAT DECKHAND 6401 [place] [address] Assigned Surgical Provider 10/09/22 05/01/24 [place] [address] [facility] 300 [place], [place] 599887 Assigned Musculoskeletal Provider 10/09/22 05/01/24 Catherine Cm MD 6405 [facility] [address] [place], [place] 874315 Assigned Heart and Vascular Provider 11/13/22 05/27/23 Sydnie Martinez RN Personal Advocate & Liaison (PAL) Family Medicine 03/28/23 07/31/23 Alfonso Renteria MD 5775 [facility] 200 [place], [place] 456826 Assigned Neuroscience Provider 04/02/23 Cheng Todd PA-C [address] [place] [address] Assigned PCP 04/30/23 07/15/23 Radha Lomeli APRN PILOT BOAT DECKHAND [address] [place] [address] Assigned Heart and Vascular Provider 05/28/23 Jelena David OD [address] [facility] [address] MD Ophthalmology 06/15/23 Pao Joseph, VJ Personal Advocate & Liaison (PAL) Nurse 08/01/23 11/07/23 Esha Grimm PA-C [address] [place] [address] Assigned PCP 07/16/23 Valery Veronica PA-C [address] [place] [address] 128165 Physician Geosciences Faculty Member Dermatology 09/19/23 Rey Tay MD [address] [place] [address] 983815 Gastroenterology 09/20/23 Rocky Zepeda DO [address] [place] [address] 287695 Physician Gastroenterology 09/20/23 Philip Dumont MD [address] [place] [address] 805715 Physician Ophthalmology 09/22/23 Meredith Carrera PA-C [address] [place] [address] Assigned Gastroenterology Provider 11/01/23 Neil Kent MD [address] [address] Dermatology 11/02/23 [place] [address] [facility] [place] [address] Neurological Surgery 12/26/23 Audrey Waite PA-C 500 [place] [address] Physician Geosciences Faculty Member Dermatology 02/28/24 Valery Veronica PA-C 160316 [place] [address] Physician Geosciences Faculty Member Dermatology 04/10/24 Herminia Hatch MD [facility] [place], [place] 36539125 Assigned Rheumatology Provider 07/02/24 documented as of this encounter
--- OUTSIDE RECORDS SUMMARY | 2024-07-22 22:44 | XMS_ITS | Encounter Summary ---
Author Organization [facility] Address [address] [place] [address] Care Team Providers Care Aircraft Cabin Cleaner Name Role Phone Diana Desir [facility] Unavailable Rain Galaviz PA-C Unavailable Tavia Wyatt MD Unavailable [phone] Erica Farrell APRN DOCUMENT PROCESSOR Unavailable Rich Barrett MD Unavailable [phone] Neil Kent MD Unavailable Diana Desir [facility] Unavailable Livan Sharif MD Unavailable Catherine Cm MD Unavailable + Valery Veronica-C Unavailable Brea Quinn TUNNEL MUCKER DOCUMENT PROCESSOR Unavailable [phone] Brea Quinn TUNNEL MUCKER DOCUMENT PROCESSOR Unavailable Jose Francisco Johnson MD Unavailable Sydnie Martinez RN Unavailable Unavailable Alfonso Renteria MD Unavailable [phone] Esha Grimm PA-C Primary Care Provider Cheng Todd PA-C Unavailable Radha Lomeli APRN DOCUMENT PROCESSOR Unavailable Jelena David OD Unavailable Pao Joseph RN Unavailable Unavailable Esha Grimm PA-C Unavailable [phone] Valery Veronica PA-C Unavailable Rey Tay MD Unavailable Rocky Zepeda DO Unavailable Philip Dumont MD Unavailable [phone] Meredith Carrera PA-C Unavailable Neil Kent MD Unavailable Juan Pablo Emmanuel MD Unavailable Audrey Waite PA-C Unavailable JeremíasValery damon PA-C Unavailable Herminia Hatch MD Unavailable Encounter Details Date Type Department Care Team (Late st Contact Info) Description 06/15/2023 MyC Medical Advice [facility] Gastroenterology Clinic [address] [address] Doris Levi Social History Tobacco [...] you attend [facility] or adventism services? 1 to 4 times per year 03/10/2023 Do you belong to any clubs o r organizations such as pentecostal groups, unions, fraDroneCast or athletic groups, or school groups? No [...] Date Recorded PHQ-2 Score 1 05/16/2023 [facility] - [facility]ational Stress [...] in an overnight longterm, or couch-surfing.) Yes 04/18/2023 Are you worried [...] CDT Legal Sex Female 4:13 AM FINANCIAL CONSULTANT Gender Identity Female 03/02/2021 5:45 PM CDT Sexual Orientation Straight 02/28/2020 12 :51 AM CDT documented as of this encounter Plan of Treatment Upcoming Encounters Date Type Department Care Team (Late st Contact Info) Description 10/23/2024 9:30 AM CDT Office Visit [facility] Neurology [facility] - [address], [address] [place] [address] [place] [address] [address] [place] [address] Johnny Penn MD [address] [place] [address] 11/28/2024 7:45 AM CDT Virtual Visit [facility] Gastroenterology Clinic [address] 4th [place] [address] Meredith Carrera PA-C [address] [place] [address] documented as of this encounter Visit Diagnoses Not on filedocumented in this encounter Additional Health Concerns Infection Onset Date Last Indicated Resolved Time Rule Out COVID-19 12/26/2023 12/26/2023 12/26/2023 9:50 AM CDT Rule Out COVID-19 04/09/2024 04/09/2024 04/10/2024 6:48 PM CDT Assessment Noted Time PHQ-9 Depression Total Score: 6 05/16/20 9:29 AM FINANCIAL CONSULTANT documented as of this encounter Care Teams Aircraft Cabin Cleaner Relationship Specialty Start Date End Date Esha Grimm PA-C [address] [place] [address] PCP - General Family Medicine 05/04/23 Diana Desir, [facility] [address] [place] [address] Pharmacist Pharmacist 04/17/21 Rain Galaviz PA-C [address] [place] [address] [address] [place] [address] Physician Flight Deck Officer Dermatology 04/28/21 Tavia Wyatt MD [address] [place] [address] [place] [address] Dermatology 07/14/21 Erica Farrell APRN DOCUMENT PROCESSOR [address] [place], [place] 468105 Nurse Practitioner Cardiovascular Disease 09/09/21 Rich Barrett MD 516 [facility] 9A [place] [address] Physician Ophthalmology 01/21/22 Neil Kent MD 500 [place], [place] 915475 Dermatology 02/24/22 Diana Desir, [facility] 3033 [place], [place] 243696 Assigned [place] Pharmacist 04/07/22 Livan Sharif MD [address] [place], [place] 0[address]365 Cardiovascular Disease 05/14/22 Catherine Cm MD [address] [place], [place] 729355 Cardiovascular Disease 07/21/22 Valery Veronica, PA-C [address] [place], [place] 614845 Physician Flight Deck Officer Dermatology 07/21/22 Brea Quinn APRN DOCUMENT PROCESSOR 500 [place], [place] 640335 Nurse Practitioner Dermatology 09/21/22 Brea Quinn APRN DOCUMENT PROCESSOR [address] [facility] [place] [address] Assigned Surgical Provider 10/09/22 05/01/24 [place] [address] [place] [address] Assigned Musculoskeletal Provider 10/09/22 05/01/24 Sydnie Martinez RN Personal Advocate & Liaison (PAL) Family Medicine 03/28/23 07/31/23 Alfonso Renteria MD [address] [facility] 200 [place] [address] Assigned Neuroscience Provider 04/02/23 Cheng Todd PA-C [address] [place] [address] [id number] Assigned PCP 04/30/23 07/15/23 Radha Lomeli, ARLENE DOCUMENT PROCESSOR 6405 [facility] [address] [place] [address] Assigned Heart and Vascular Provider 05/28/23 Jelena David OD [address] [facility] [place] [address] Ophthalmology 06/15/23 Pao Joseph, VJ Personal Advocate & Liaison (PAL) Nurse 08/01/23 11/07/23 Esha Grimm PA-C [address] [place] [address] Assigned PCP 07/16/23 Valery Veronica PA-C [address] [place] [address] Physician Flight Deck Officer Dermatology 09/19/23 Rey Tay MD 9 [place] [address] MD Gastroenterology 09/20/23 Rocky Zepeda DO 500 [place] [address] Physician Gastroenterology 09/20/23 Philip Dumont MD 6 [place] [address] Physician Ophthalmology 09/22/23 Meredith Carrera PA-C 9 [place] [address] Assigned Gastroenterology Provider 11/01/23 Neil Kent MD [address] 587670 Dermatology 11/02/23 [place] [address] 752967 Neurological Surgery 12/26/23 Audrey Waite PA-C 500 [place] [address] Physician Flight Deck Officer Dermatology 02/28/24 Valery Veronica PA-C 553330 [address] [place] [address] Physician Flight Deck Officer Dermatology 04/10/24 Herminia Hatch MD [address] [place] [address] Assigned Rheumatology Provider 07/02/24 documented as of this encounter
--- OUTSIDE RECORDS SUMMARY | 2024-07-22 22:44 | XMS_ITS | Encounter Summary ---
Author Organization [facility] Address [address] [place] [address] Care Team Providers Care Data Communications Software Consultant Name Role Phone Lita Oseguera Unavailable Unavailable Marija Edgar APRN SALES REPRESENTATIVE PRINTING Primary Care Provider + Marija Edgar APRN SALES REPRESENTATIVE PRINTING Unavailable [phone] Keisha Dotson MD Unavailable [phone] Diana Desir [facility] Unavailable [phone] Rain Galaviz PA-C Unavailable Tavia Wyatt MD Unavailable Erica Farrell APRN SALES REPRESENTATIVE PRINTING Unavailable Rich Barrett MD Unavailable [phone] Neil Kent MD Unavailable Diana Desir [facility] Unavailable Livan Sharif MD Unavailable Catherine Cm MD Unavailable + Valery Veronica PA-C Unavailable [phone] Brea Quinn ASSURANCE ASSISTANT SALES REPRESENTATIVE PRINTING Unavailable Brea Quinn ASSURANCE ASSISTANT SALES REPRESENTATIVE PRINTING Unavailable Jose Francisco Johnson MD Unavailable Catherine Cm MD Unavailable + Sydnie Martinez RN Unavailable Unavailable Alfonso Renteria MD Unavailable [phone] Esha Grimm PA-C Primary Care Provider Cheng Todd PA-C Unavailable ArmaniRadha APRN SALES REPRESENTATIVE PRINTING Unavailable Jelena David OD Unavailable Pao Joseph RN Unavailable Unavailable Esha Grimm PA-C Unavailable [phone] Valery Veronica PA-C Unavailable Rey Tay MD Unavailable Rocky Zepeda DO Unavailable Philip Dumont MD Unavailable [phone] Meredith Carrera PA-C Unavailable [phone] Neil Kent MD Unavailable Juan Pablo Emmanuel MD Unavailable Audrey Waite PA-C Unavailable JeremíasValery damon PA-C Unavailable Herminia Hatch MD Unavailable Encounter Details Date Type Department Care Team (Late st Contact Info) Description 01/28/2023 MyC Medical Advice [facility] Heart Clinic [address] [place] [address] Margaret Rendon, RN Social History Tobacco Use [...] How often do you attend restorationist or evangelical serv ices? Never 09/22/2021 Do [...] Answer Date Recorded PHQ-2 Score 1 10/11/2022 [facility] of Occupat ional [...] in a jail (including now)? No 09/22/2021 [place] Depression Scale Answer Date Recorded [place] Depression Score 5 01/14/2021 Last EPDS Self Harm Result Not on file 01/14 Education Answer Date Recorded What is the highest level of school you have completed or the highest degree you have received? 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 HYDROLOGY TEACHER Gender Identity Female 03/02/2021 5:45 PM [...] Visit [facility] Neurology [facility] [address] [place] [address], [address] [place] [address] [place] [address] [address] [place] [address] Johnny Penn MD [address] [place] [id number] 11/28/2024 7:45 AM CDT Virtual Visit [facility] Gastroenterology Clinic [address] [place] [address] Meredith Carrera PA-C [address] [place] [address] documented as of this encounter Visit [...] as of this encounter Care Teams Data Communications Software Consultant Relationship Specialty Start Date End Date Marija Edgar APRN SALES REPRESENTATIVE PRINTING PCP - General Nurse Practitioner 04/30/20 04/14/23 Esha Grimm PA-C [address] [place] [address] PCP - General Family Medicine 05/04/23 Lita Oseguera Personal Advocate & Liaison (PAL) 02/28/20 03/27/23 Marija Edgar APRN SALES REPRESENTATIVE PRINTING Assigned PCP 06/08/20 04/29/23 Keisha Dotson MD 909 [place], [place] 622565 Assigned Neuroscience Provider 06/04/20 04/01/23 [facility] 3033 [place], [place] 0880[address] Pharmacist Pharmacist 04/17/21 Rain Galaviz PA-C [address] [place] [address] [address] [place] [address] Physician Lap Checker Dermatology 04/28/21 Tavia Wyatt MD [address] [place] [address] [address] [place] [address] Dermatology 07/14/21 Erica Farrell APRN SALES REPRESENTATIVE PRINTING [address] [place] [address] Nurse Practitioner Cardiovascular Disease 09/09/21 Rich Barrett MD [address] [address] Physician Ophthalmology 01/21/22 Neil Kent MD 500 [place], [place] 000505 Dermatology 02/24/22 Diana Desir, [facility] 3033 [place] [address] Assigned MTM Pharmacist 04/07/22 Livan Sharif MD [address] [facility] [place] 6790[address] Cardiovascular Disease 05/14/22 Catherine Cm MD [address] [facility] [place] 440945 Cardiovascular Disease 07/21/22 Valery Veronica, PA-C 9 [place], [place] 9[address]375 Physician Lap Checker Dermatology 07/21/22 Brea Quinn APRN SALES REPRESENTATIVE PRINTING 500 [place] [address] Nurse Practitioner Dermatology 09/21/22 Brea Quinn APRN SALES REPRESENTATIVE PRINTING [address] [place], [place] [address] 967092 Assigned Surgical Provider 10/09/22 05/01/24 [place] [address] [place] [address] 263947 Assigned Musculoskeletal Provider 10/09/22 05/01/24 Catherine Cm MD [address] [place] [address] Assigned Heart and Vascular Provider 11/13/22 05/27/23 Sydnie Martinez RN Personal Advocate & Liaison (PAL) Family Medicine 03/28/23 07/31/23 Alfonso Renteria MD 5775 [facility] 200 [place], [place] 268[address] Assigned Neuroscience Provider 04/02/23 Cheng Todd PA-C [address] [place] [address] [id number] Assigned PCP 04/30/23 07/15/23 Radha Lomeli APRN SALES REPRESENTATIVE PRINTING [address] [place] [address] Assigned Heart and Vascular Provider 05/28/23 Jelena David OD [address] [facility] [place] [address] Ophthalmology 06/15/23 Pao Joseph, VJ Personal Advocate & Liaison (PAL) Nurse 08/01/23 11/07/23 Esha Grimm PA-C [address] [place] [address] Assigned PCP 07/16/23 Valery Veronica PA-C 909 [place], [place] 540[address] Physician Lap Checker Dermatology 09/19/23 Rey Tay MD 909 [place], [place] 452025 MD Gastroenterology 09/20/23 Rocky Zepeda DO 500 [place] [address] Physician Gastroenterology 09/20/23 Philip Dumont MD 516 [place], [place] 6024[address] Physician Ophthalmology 09/22/23 Meredith Carrera PA-C 9 [place] [address] Assigned Gastroenterology Provider 11/01/23 Neil Kent MD [address] 645020 Dermatology 11/02/23 [place] [address] [address] [facility] [address] [place], [place] 7940[address] Neurological Surgery 12/26/23 Audrey Waite PA-C 500 [place] [address] Physician Lap Checker Dermatology 02/28/24 Valery Veronica PA-C 524429 [address] [address] Physician Lap Checker Dermatology 04/10/24 Herminia Hatch MD [address] [place] [address] Assigned Rheumatology Provider 07/02/24 documented as of this encounter
--- OUTSIDE RECORDS SUMMARY | 2024-07-22 22:44 | XMS_ITS | Encounter Summary ---
Author Organization [facility] Address [address] [place] [address] Care Team Providers Care Jai Alai Player Name Role Phone Diana Desir [facility] Unavailable Rain Galaviz PA-C Unavailable Tavia Wyatt MD Unavailable Erica [place]rell APRN BLENDER Unavailable Rich Barrett MD Unavailable [phone] Neil Kent MD Unavailable Diana Desir [facility] Unavailable Livan Sharif MD Unavailable Catherine Cm MD Unavailable + Valery Veronica-C Unavailable [phone] Brea Quinn SELF SEALING FUEL TANK BUILDER BLENDER Unavailable Brea Quinn SELF SEALING FUEL TANK BUILDER BLENDER Unavailable [phone] Jose Francisco Johnson MD Unavailable Sydnie Martinez RN Unavailable Unavailable Alfonso Renteria MD Unavailable [phone] Esha Grimm PA-C Primary Care Provider Cheng Todd PA-C Unavailable Radha Lomeli APRN BLENDER Unavailable Jelena David OD Unavailable Pao Joseph RN Unavailable Unavailable Esha Grimm PA-C Unavailable [phone] Valery Veronica PA-C Unavailable Rey Tay MD Unavailable Rocky Zepeda DO Unavailable Philip Dumont MD Unavailable Meredith Carrera PA-C Unavailable [phone] Neil Kent MD Unavailable Juan Pablo Emmanuel MD Unavailable Audrey Waite PA-C Unavailable JeremíasValery damon PA-C Unavailable [phone] Herminia Hatch MD Unavailable Reason for Visit * Reason Onset Date Comments Appointment 06/17/2023 Encounter Details Date Type Department Care Team (Late st Contact Info) Description 06/17/2023 Telephone [facility] [id number] [place] [phone] Esha Grimm PA-C [id number] [place] [phone] Appointment Social History Tobacco Use Types [...] 0 06/20/2023 [facility] - Occupational Stress [...] Legal Sex Female 4:13 AM SALES SUPPORT REPRESENTATIVE Gender Identity Female 03/02/2021 5:45 PM CDT Sexual Orientation Straight 02/28/2020 12 :51 AM CDT documented as of this encounter Miscellaneous Notes * Telephone Encounter - Lulu Day - 06/17/2023 7:19 AM CST [facility] doesn't have anything, we are down providers and they are all full today Lulu Day/ Fuel Retrofitting Technician S SUPPORT REPRESENTATIVE * Telephone Encounter - Rosio Eller - 06/17/2023 7:13 AM CST Reason for Call: Appointment Request Patient requesting this type of appt: follow-up breast pain Requested provider: any Reason patient unable to be scheduled: Not within requested timeframe When does patient want to be seen/preferred time: today or Tuesday Comments: patient wondering if she could be worked in [facility] Could we send this information to you in [facility] or would you prefer to receive a phone call?: Patient would prefer a phone call Okay to leave a detailed message?: Yes at Home number on file [phone] (home) Call taken on 06/17/2023 at 7:13 AM by Rosio Eller S SUPPORT REPRESENTATIVE documented in this encounter Plan of Treatment Upcoming Encounters Date Type Department Care Team ([facility] Contact Info) Description 10/23/2024 9:30 AM CDT Office Visit [facility] Neurology [address], [address] [place] [phone] [place] [address] [place] [address] 054237 Johnny Penn MD 6545 [place], [place] [phone] 11/28/2024 7:45 AM CDT Virtual Visit [facility] Gastroenterology Clinic [address] [place] [phone] Meredith Carrera PA-C [address] [place] [address] [phone] documented as of this encounter Visit Diagnoses Not on filedocumented in this encounter Additional Health Concerns Infection Onset Date Last Indicated Resolved Time Rule Out COVID-19 12/26/2023 12/26/2023 12/26/2023 9:50 AM CDT Rule Out COVID-19 04/09/2024 04/09/2024 04/10/2024 6:48 PM CDT Assessment Noted Time PHQ-9 Depression Total Score: 6 05/16/20 9:29 AM SALES SUPPORT REPRESENTATIVE documented as of this encounter Care Teams Jai Alai Player Relationship Specialty Start Date End Date Esha Grimm PA-C [address] [place] [phone] PCP - General Family Medicine 05/04/23 Diana Desir, [facility] [address] [place] [address] Pharmacist Pharmacist 04/17/21 Rain Galaviz PA-C [address] [place] [address] [address] [place] [address] Physician Director [facility] 04/28/21 Tavia Wyatt MD [address] [place] [address] [address] [place] [address] Dermatology 07/14/21 Erica [place]rell APRN BLENDER [address] 17[address]200 [place] [address] Nurse Practitioner Cardiovascular Disease 09/09/21 Rich Barrett MD [address] [address] Physician Ophthalmology 01/21/22 Neil Kent MD [address] [place] [address] 014655 Dermatology 02/24/22 Diana Desir, [facility] [address] [place] [address] Assigned MTM Pharmacist 04/07/22 Livan Sharif MD [address] [facility] [address] [place], [place] 795385 Cardiovascular Disease 05/14/22 Catherine Cm MD [address] 8010100 [place], [place] 168165 Cardiovascular Disease 07/21/22 Valery Veronica PA-C [address] [place] [address] 148785 Physician Director [facility] 07/21/22 Brea Quinn APRN BLENDER 500 [place], [place] 420855 Nurse Practitioner Dermatology 09/21/22 Brea Quinn APRN BLENDER [address] [place] [address] 999052 Assigned Surgical Provider 10/09/22 05/01/24 [place] [address] [facility] 300 [place], [place] 800137 Assigned Musculoskeletal Provider 10/09/22 05/01/24 Sydnie Martinez RN Personal Advocate & Liaison (PAL) Family Medicine 03/28/23 07/31/23 Alfonso Renteria MD [address] [facility] [facility] 200 [place], [place] 513256 Assigned Neuroscience Provider 04/02/23 Cheng Todd PA-C [address] [place] [address] Assigned PCP 04/30/23 07/15/23 Radha Lomeli APRN BLENDER [address] [facility] [address] [place], [place] 185765 Assigned Heart and Vascular Provider 05/28/23 Jelena David OD [address] [place] [address] Ophthalmology 06/15/23 Pao Joseph, VJ Personal Advocate & Liaison (PAL) Nurse 08/01/23 11/07/23 Esha Grimm PA-C [address] [place] [address] Assigned PCP 07/16/23 Valery Veronica PA-C [address] [place] [address] 016945 Physician Director [facility] 09/19/23 Rey Tay MD [address] [place] [address] 073345 Gastroenterology 09/20/23 Rocky Zepeda DO [address] [place] [address] 883105 Physician Gastroenterology 09/20/23 Philip Dumont MD [address] [place] [address] Physician Ophthalmology 09/22/23 Meredith Carrera PA-C [address] [place] [address] Assigned Gastroenterology Provider 11/01/23 Neil Kent MD [address] [address] Dermatology 11/02/23 [place] [address] [place] [address] [address] Neurological Surgery 12/26/23 Audrey Waite PA-C 500 [place] [address] Physician Director [facility] 02/28/24 Valery Veronica PA-C 827763 [address] [address] Physician Director [facility] 04/10/24 Herminia Hatch MD [facility]5 [place] [address] Assigned Rheumatology Provider 07/02/24 documented as of this encounter
[2024-07-22 22:45] VITALS: O2SAT 98
--- OUTSIDE RECORDS SUMMARY | 2024-07-22 22:45 | XMS_ITS | Encounter Summary ---
Author Organization [facility] Address [address] [place] [address] Care Team Providers Care Data Engineer Name Role Phone Lita Oseguera Unavailable Unavailable Marija Edgar APRN DIAMOND WHEEL MOLDER Primary Care Provider + Marija Edgar APRN DIAMOND WHEEL MOLDER Unavailable [phone] Keisha Dotson MD Unavailable Diana Desir [facility] Unavailable [phone] Rain Galaviz PA-C Unavailable Tavia Wyatt MD Unavailable Erica [place] APRN DIAMOND WHEEL MOLDER Unavailable Rich Barrett MD Unavailable Neil Kent MD Unavailable Roney Story DPM Unavailable Diana Desir [facility] Unavailable Jelena David OD Unavailable Livan Sharif MD Unavailable Livan Sharif MD Unavailable Catherine Cm MD Unavailable + Valery Veronica PA-C Unavailable Catherine Cm MD Unavailable + Johnny Murillo MD Unavailable [phone] Brea Quinn LEARNING AND DEVELOPMENT COORDINATOR DIAMOND WHEEL MOLDER Unavailable [phone] Brea Quinn LEARNING AND DEVELOPMENT COORDINATOR DIAMOND WHEEL MOLDER Unavailable [phone] Jose Francisco Johnson MD Unavailable Livan Sharif MD Unavailable Catherine Cm MD Unavailable + Sydnie Martinez RN Unavailable Unavailable Alfonso Renteria MD Unavailable Esha Grimm PA-C Primary Care Provider Cheng Todd PA-C Unavailable [phone] Radha Lomeli LEARNING AND DEVELOPMENT COORDINATOR DIAMOND WHEEL MOLDER Unavailable Jelena David OD Unavailable Pao Joseph RN Unavailable Unavailable Esha Grimm PA-C Unavailable [phone] Valery Veronica PA-C Unavailable [phone] Rey Tay MD Unavailable Rocky Zepeda DO Unavailable Philip Dumont MD Unavailable [phone] Meredith Carrera PA-C Unavailable Neil Kent MD Unavailable Juan Pablo Emmanuel MD Unavailable [phone] Audrey Waite PA-C Unavailable [phone] Valery Veronica PA-C Unavailable Herminia Hatch MD Unavailable Encounter Details Date Type Department Care Team (Late st Contact Info) Description 07/02/2022 My[facility] Medical Advice [address] [address] Diana Desir, [facility] [address] [place] [address] Social History Tobacco Use Types Packs/Day Years [...] How often do you attend yazidism or yarsanism serv ices? Never 09/22/2021 Do [...] Administer PHQ-9 if positive 1 05/13/2022 [facility] Occupat ional Health - Occupational Stress [...] a skilled nursing (including now)? No 09/22/2021 [place] Depression Scale Answer Date Recorded [place] Depression Score 5 01/14/2021 Last EPDS Self Harm Result Not on file 01/14 Education Answer Date Recorded What is the highest level of school you have completed or the highest degree you have received? 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 SENIOR CORPORATE RECRUITER Gender Identity Female 03/02/2021 5:45 PM CDT Sexual Orientation Straight 02/28/2020 12 :51 AM CDT COVID-19 Exposure Response Date Recorded In the last 10 days, have yo u been in contact with someone who was confirmed or suspected to have Coronavirus/COVID-19? No / Unsure 06/25/2022 8:44 AM SENIOR CORPORATE RECRUITER documented as of this encounter Plan of Treatment Upcoming Encounters Date Type Department Care Team (Late st Contact Info) Description 10/23/2024 9:30 AM CDT Office Visit [facility] Neurology Clinics [address], [address] [place] [address] [place] [address] [place] [address] Johnny Penn MD 6545 [place], [place] [phone] 11/28/2024 7:45 AM CDT Virtual Visit [facility] Gastroenterology Clinic [address] 4th [place] [address] Meredith Carrera PA-C [address] [place] [address] 757955 documented as of this encounter Visit Diagnoses [...] as of this encounter Care Teams Data Engineer Relationship Specialty Start Date End Date Marija Edgar APRN DIAMOND WHEEL MOLDER PCP - General Nurse Practitioner 04/30/20 04/14/23 Esha Grimm PA-C [address] [place] [phone] PCP - General Family Medicine 05/04/23 Lita Oseguera Personal Advocate & Liaison (PAL) 02/28/20 03/27/23 Marija Edgar APRN DIAMOND WHEEL MOLDER Assigned PCP 06/08/20 04/29/23 Keisha Dotson MD 909 [place], [place] 713155 Assigned Neuroscience Provider 06/04/20 04/01/23 Diana Desir [facility] [address] [facility] [place] [place] [phone] Pharmacist Pharmacist 04/17/21 Rain Galaviz PA-C [address] [place] [address] [place] [address] Physician Rodeo Performer Dermatology 04/28/21 Tavia Wyatt MD [address] [place] [address] [address] [place] [address] Dermatology 07/14/21 Erica [place] APRN DIAMOND WHEEL MOLDER [address] [place] [address] Nurse Practitioner Cardiovascular Disease 09/09/21 Rich Barrett MD [address] [place] [address] 734775 Physician Ophthalmology 01/21/22 Neil [place] MD 500 [place] [address] Dermatology 02/24/22 Roney Story DPM [address] [facility] 300 [place] [address] Assigned Musculoskeletal Provider 03/20/22 08/13/22 Diana Desir, [facility] [address] [place] [address] Assigned MTM Pharmacist 04/07/22 [place]ena [place] OD [address] [facility] [place] [address] Assigned Surgical Provider 05/08/22 10/08/22 Livan Sharif MD [address] [place] [address] Cardiovascular Disease 05/14/22 Livan Sharif MD [address] Syl[address] [facility] [address] [place] [address] Assigned Heart and Vascular Provider 06/12/22 07/23/22 Catherine Cm MD [address] [facility]00 [place] [address] Cardiovascular Disease 07/21/22 Valery Veronica, PA-C [address] [place] [address] 476345 Physician Rodeo Performer Dermatology 07/21/22 Catherine Cm MD [address] [place] [address]1800 [place] [address] Assigned Heart and Vascular Provider 07/24/22 11/05/22 Johnny Murillo MD [address] [place] [address] 877414 Assigned Musculoskeletal Provider 08/14/22 10/08/22 Brea [place] APRN DIAMOND WHEEL MOLDER [address] [place] [address] Nurse Practitioner Dermatology 09/21/22 Brea Quinn APRN DIAMOND WHEEL MOLDER [address] [place] [address] [facility] [place] [address] Assigned Surgical Provider 10/09/22 05/01/24 [place] [address] [place] [address] Assigned Musculoskeletal Provider 10/09/22 05/01/24 Livan Sharif MD [address], [facility] [address] [place] [address] Assigned Heart and Vascular Provider 11/06/22 11/12/22 Catherine Cm MD [address] [facility] [address] [place] 300[address] Assigned Heart and Vascular Provider 11/13/22 05/27/23 Sydnie Martinez RN Personal Advocate & Liaison (PAL) Family Medicine 03/28/23 07/31/23 Alfonso Renteria MD 5775 [facility] 200 [place] [address] Assigned Neuroscience Provider 04/02/23 Cheng Todd PA-C [address] [place] [address] Assigned PCP 04/30/23 07/15/23 Radha Lomeli, LEARNING AND DEVELOPMENT COORDINATOR DIAMOND WHEEL MOLDER [address] [place] [address] Assigned Heart and Vascular Provider 05/28/23 Jelena David OD [facility] [facility] [place] [address] Ophthalmology 06/15/23 Pao Joseph, VJ Personal Advocate & Liaison (PAL) Nurse 08/01/23 11/07/23 Esha Grimm PAUcheC [address] [facility] [place] [address] Assigned PCP 07/16/23 Valery Veronica PA-C [address] [place] [address] Physician Rodeo Performer Dermatology 09/19/23 Rey Tay MD [address] [place] [address] MD Gastroenterology 09/20/23 Rocky Zepeda DO [address] [place] [address] 319915 Physician Gastroenterology 09/20/23 Philip Dumont MD [address] [place] [address] Physician Ophthalmology 09/22/23 Meredith Carrera PA-C [address] [place] [address] Assigned Gastroenterology Provider 11/01/23 Neil Kent MD [address] [address] Dermatology 11/02/23 [place] [address] [place], [place] 328[address] Neurological Surgery 12/26/23 Audrey Wa[place] PA-C [address] [place] [address] 401265 Physician Rodeo Performer Dermatology 02/28/24 Valery Veronica PA-C [address] [place] [address] Physician Rodeo Performer Dermatology 04/10/24 Herminia Hatch MD [address] [place] [address] [id number] Assigned Rheumatology Provider 07/02/24 documented as of this encounter
--- OUTSIDE RECORDS SUMMARY | 2024-07-22 22:45 | XMS_ITS | Encounter Summary ---
Author Organization [place] Address [address] [place] [address] Care Team Providers Care Snout Puller Name Role Phone Lita Oseguera Unavailable Unavailable Marija Edgar APRN INTEGRATED CIRCUIT FABRICATOR Primary Care Provider + Marija Edgar APRN INTEGRATED CIRCUIT FABRICATOR Unavailable [phone] Keisha Dotson MD Unavailable Diana Desir [facility] Unavailable Rain Galaviz PA-C Unavailable [phone] Tavia Wyatt MD Unavailable Erica Farrell APRN INTEGRATED CIRCUIT FABRICATOR Unavailable Rich Barrett MD Unavailable Neil Kent MD Unavailable Roney Story DPM Unavailable Diana Desir [facility] Unavailable Jelena David OD Unavailable Livan Sharif MD Unavailable Livan Sharif MD Unavailable Catherine Cm MD Unavailable + Valery Veronica PA-C Unavailable Catherine Cm MD Unavailable + Johnny Murillo MD Unavailable [phone] Brea Quinn BRIM PRESSER INTEGRATED CIRCUIT FABRICATOR Unavailable [phone] Brea Quinn BRIM PRESSER INTEGRATED CIRCUIT FABRICATOR Unavailable [phone] Jose Francisco Johnson MD Unavailable Livan Sharif MD Unavailable Cathreine Cm MD Unavailable + Sydnie Martinez RN Unavailable Unavailable Alfonso Renteria MD Unavailable Esha Grimm PA-C Primary Care Provider Cheng Todd PA-C Unavailable [phone] Radha Lomeli BRIM PRESSER INTEGRATED CIRCUIT FABRICATOR Unavailable Jelena David OD Unavailable [phone] Pao Joseph RN Unavailable Unavailable Esha Grimm PA-C Unavailable [phone] Valery Veronica PA-C Unavailable Rey Tay MD Unavailable Rocky Zepeda DO Unavailable Philip Dumont MD Unavailable [phone] Meredith Carrera PA-C Unavailable Neil Kent MD Unavailable Juan Pablo Emmanuel MD Unavailable Audrey Waite PA-C Unavailable [phone] Valery Veronica PA-C Unavailable [phone] Herminia Hatch MD Unavailable Reason for Visit * Reason Onset Date Comments Appointment 06/14/2022 Stress test and monitor on the same day Encounter Details Date Type Department Care Team (Late st Contact Info) Description 06/14/2022 Telephone [facility] Heart [facility] [address] [facility] [address] [place] [address] Livan Sharif MD [address] [place] [facility] [address] [place] [id number] Appointment (Stress test and monitor on the [...] How often do you attend shinto or mandaeism serv ices? Never 09/22/2021 Do [...] Administer PHQ-9 if positive 1 05/13/2022 [facility] [...] in a fpc (including now)? No 09/22/2021 [place] Depression Scale Answer Date Recorded [place] Depression Score 5 01/14/2021 Last EPDS Self Harm Result Not on file 01/14 Education Answer Date Recorded What is the highest level of school you have completed or the highest degree you have received? 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 ORACLE WMS CONSULTANT Gender Identity Female 03/02/2021 5:45 PM CDT Sexual Orientation Straight 02/28/2020 12 :51 AM CDT COVID-19 Exposure Response Date Recorded In the last 10 days, have yo u been in contact with someone who was confirmed or suspected to have Coronavirus/COVID-19? Yes 06/16/2022 12:32 PM ORACLE WMS CONSULTANT documented as of this encounter Miscellaneous [...] Not Applicable Thank you! [facility] LE WMS CONSULTANT documented in this encounter Plan of Treatment Upcoming Encounters Date Type Department Care Team (Late st Contact Info) Description 10/23/2024 9:30 AM CDT Office Visit [facility] Neurology Clinics - [address], [address] [place] [address] [place] [address] [place] [phone] Johnny Penn MD [address] [address] 11/28/2024 7:45 AM CDT Virtual Visit [facility] Gastroenterology Clinic [address] 4th [place] [phone] Meredith Carrera PA-C [address] [place] [address] 724335 documented as of this encounter Visit Diagnoses Not on filedocumented in this encounter Additional Health Concerns Infection Onset Date Last Indicated Resolved Time COVID-19 06/09/2022 06/09/2022 06/30/2022 11:4 1 PM ORACLE WMS CONSULTANT Rule Out COVID-19 11/10/2022 11/10/2022 11/11/2022 12:17 PM CDT Rule Out COVID-19 03/07/2023 03/07/2023 03/07/2023 1:20 PM CDT Rule Out COVID-19 12/26/2023 12/26/2023 12/26/2023 9:50 AM CDT Rule Out COVID-19 04/09/2024 04/09/2024 04/10/2024 6:48 PM CDT Assessment Noted Time PHQ-9 Depression Total Score: 3 05/13/20 22 8:49 PM CDT documented as of this encounter Care Teams Snout Puller Relationship Specialty Start Date End Date Marija Edgar APRN CNP PCP - General Nurse Practitioner 04/30/20 04/14/23 Esha Grimm PA-C [address] [place] [phone] PCP - General Family Medicine 05/04/23 Lita Oseguera Personal Advocate & Liaison (PAL) 02/28/20 03/27/23 Marija Edgar APRN INTEGRATED CIRCUIT FABRICATOR Assigned PCP 06/08/20 04/29/23 Keisha Dotson MD [address] [place] [address] Assigned Neuroscience Provider 06/04/20 04/01/23 [facility] [address] [place] [address] Pharmacist Pharmacist 04/17/21 Rain Galaviz PA-C [address] [place] [address] [address] [facility] [place] [address] Physician Apprentice Funeral Director Dermatology 04/28/21 Tavia Wyatt MD [address] [place] [address] [address] [facility] [place] [phone] Dermatology 07/14/21 Erica Farrell APRN INTEGRATED CIRCUIT FABRICATOR [address] [place], [place] 0[address] Nurse Practitioner Cardiovascular Disease 09/09/21 Rich Barrett MD [address] 154415 Physician Ophthalmology 01/21/22 Neil Kent MD [address] [place] [address] Dermatology 02/24/22 Roney Story DPM [address] [facility] [address] [place] [address] Assigned Musculoskeletal Provider 03/20/22 08/13/22 Diana Desir, [facility] [address] [place] [address] Assigned MTM Pharmacist 04/07/22 Jelena David OD [address] [facility] [place] [address] Assigned Surgical Provider 05/08/22 10/08/22 Livan Sharif MD [address] [place] 626435 Cardiovascular Disease 05/14/22 Livan Sharif MD [address] [place] [address] Assigned Heart and Vascular Provider 06/12/22 07/23/22 Catherine Cm MD [address] [place] [address] Cardiovascular Disease 07/21/22 Valery Veronica PA-C [address] [place], [place] [address] Physician Apprentice Funeral Director Dermatology 07/21/22 Catherine Cm MD [address] [place] [address] Assigned Heart and Vascular Provider 07/24/22 11/05/22 Johnny Murillo MD [address] [place] [address] Assigned Musculoskeletal Provider 08/14/22 10/08/22 Brea Quinn APRN INTEGRATED CIRCUIT FABRICATOR 500 [place], [place] 187475 Nurse Practitioner Dermatology 09/21/22 Brea Quinn APRN INTEGRATED CIRCUIT FABRICATOR [address] [facility] [place] [address] Assigned Surgical Provider 10/09/22 05/01/24 [place] [address] [facility] [address] [place], [place] 809197 Assigned Musculoskeletal Provider 10/09/22 05/01/24 Livan Sharif MD [address], [facility] [address] [place] [address] Assigned Heart and Vascular Provider 11/06/22 11/12/22 Catherine Cm MD [address] [facility] [address] [place], [place] 276[address] Assigned Heart and Vascular Provider 11/13/22 05/27/23 Sydnie Martinez, VJ Personal Advocate & Liaison (PAL) Family Medicine 03/28/23 07/31/23 Alfonso Renteria MD [address] [facility] 200 [place], [place] 638986 Assigned Neuroscience Provider 04/02/23 Cheng Todd PA-C [address] [place] [address] [phone] Assigned PCP 04/30/23 07/15/23 Radha Lomeli APRN INTEGRATED CIRCUIT FABRICATOR [address] [facility] [address] [place], [place] [address] Assigned Heart and Vascular Provider 05/28/23 Jelena David OD [address] [facility] [place] [address] Ophthalmology 06/15/23 Pao Joseph, VJ Personal Advocate & Liaison (PAL) Nurse 08/01/23 11/07/23 Esha Grimm PA-C [address] [place] [phone] Assigned PCP 07/16/23 Valery Veronica PA-C [address] [place] [address] 814305 Physician Apprentice Funeral Director Dermatology 09/19/23 Rey Tay MD [address] [place] [address] 280685 Gastroenterology 09/20/23 Rocky Zepeda DO [address] [place] [address] 877345 Physician Gastroenterology 09/20/23 Philip Dumont MD [address] [place] [address] 938395 Physician Ophthalmology 09/22/23 Meredith Carrera PA-C [address] [place] [address] Assigned Gastroenterology Provider 11/01/23 Neil Kent MD [address] [place] [address] Dermatology 11/02/23 [place] [address] [address] Neurological Surgery 12/26/23 Audrey Waite PA-C 500 [place] [address] Physician Apprentice Funeral Director Dermatology 02/28/24 Valery Veronica PA-C [address] [place] [address] Physician Apprentice Funeral Director Dermatology 04/10/24 Herminia Hatch MD [facility]5 [place] [address] Assigned Rheumatology Provider 07/02/24 documented as of this encounter
--- OUTSIDE RECORDS SUMMARY | 2024-07-22 22:45 | XMS_ITS | Encounter Summary ---
Author Organization [place] Address [address] [place] [address] Care Team Providers Care Compressed Gas Plant Worker Name Role Phone Lita Oseguera Unavailable Unavailable Marija Edgar APRN GELATIN PLANT SUPERVISOR Primary Care Provider + Marija Edgar APRN GELATIN PLANT SUPERVISOR Unavailable [phone] Keisha Dotson MD Unavailable [phone] Diana Desir [facility] Unavailable [phone] Rain Galaviz PA-C Unavailable Tavia Wyatt MD Unavailable [phone] Erica Farrell APRN GELATIN PLANT SUPERVISOR Unavailable Rich Barrett MD Unavailable [phone] Neil Kent MD Unavailable Diana Desir [facility] Unavailable Livan Sharif MD Unavailable Catherine Cm MD Unavailable + Valery Veronica PA-C Unavailable [phone] Catherine Cm MD Unavailable + Brea Quinn INSERTER OPERATOR GELATIN PLANT SUPERVISOR Unavailable [phone] Brea Quinn INSERTER OPERATOR GELATIN PLANT SUPERVISOR Unavailable Jose Francisco Johnson MD Unavailable Livan Sharif MD Unavailable Catherine Cm MD Unavailable + Sydnie Martinez RN Unavailable Unavailable Alfonso Renteria MD Unavailable [phone] Esha Grimm PA-C Primary Care Provider Cheng Todd PA-C Unavailable Radha Lomeli INSERTER OPERATOR GELATIN PLANT SUPERVISOR Unavailable Jelena David OD Unavailable Pao Joseph RN Unavailable Unavailable Esha Grimm PA-C Unavailable [phone] Valery Veronica PA-C Unavailable Rey Tay MD Unavailable Rocky Zepeda DO Unavailable Philip uDmont MD Unavailable Meredith Carrera PA-C Unavailable Neil Kent MD Unavailable Juan Pablo Emmanuel MD Unavailable [phone] Audrey Waite PA-C Unavailable JeremíasValery damon PA-C Unavailable Herminia Hatch MD Unavailable Encounter Details Date Type Department Care Team (Late st Contact Info) Description 10/22/2022 MyC Medical Advice [facility] [address] [place] [phone] Lauren Claudio, PA-C [address] [place] [address] Social History Tobacco Use Types [...] How often do you attend synagogue or episcopal serv ices? Never 09/22/2021 Do [...] Answer Date Recorded PHQ-2 Score 1 10/11/2022 [facility]at [facility] [...] in a mcfp (including now)? No 09/22/2021 [place] Depression Scale Answer Date Recorded [place] [...] PM CDT Legal Sex Female 4:13 AM TOY DESIGNER Gender Identity Female 03/02/2021 5:45 PM [...] AM CDT Office Visit [facility] Neurology [facility] [address] [place] [address], [address] [place] [address] [place] [address] [place] [address] [phone] Johnny Penn MD [address] [facility] [place] 323695 11/28/2024 7:45 AM CDT Virtual Visit [facility] Gastroenterology Clinic [address]th [place] [phone] Meredith Carrera PA-C [address] [place] [address] 911595 documented as of this encounter Visit Diagnoses [...] documented as of this encounter Care Teams Compressed Gas Plant Worker Relationship Specialty Start Date End Date Marija Edgar APRN GELATIN PLANT SUPERVISOR PCP - General Nurse Practitioner 04/30/20 04/14/23 Esha Grimm PA-C [address] [place] [address] PCP - General Family Medicine 05/04/23 Lita Oseguera Personal Advocate & Liaison (PAL) 02/28/20 03/27/23 Marija Edgar APRN GELATIN PLANT SUPERVISOR Assigned PCP 06/08/20 04/29/23 Keisha Dotson MD 909 [place] [address] Assigned Neuroscience Provider 06/04/20 04/01/23 Diana Desir, [facility] [address] [place] [address] Pharmacist Pharmacist 04/17/21 Rain Galaviz PA-C [address] [place] [address] [place] [address] Physician Behavioral Intervention Specialist Dermatology 04/28/21 Tavia Wyatt MD [address] [place] [address] [place] [address] Dermatology 07/14/21 StoErica pereira APRN GELATIN PLANT SUPERVISOR [address] [place] 6[address]655 Nurse Practitioner Cardiovascular Disease 09/09/21 Rich Barrett MD 516 [facility], [address] [address] Physician Ophthalmology 01/21/22 Neil Kent MD 500 [place], [place] 646155 Dermatology 02/24/22 Diana Desir, [facility] [address] [place], [place] 201406 Assigned MTM Pharmacist 04/07/22 Livan Sharif MD [address] [place] [address]145 Cardiovascular Disease 05/14/22 Catherine Cm MD [address] [place] 0[address]295 Cardiovascular Disease 07/21/22 Valery Veronica, PA-C 909 [place] [address] Physician Behavioral Intervention Specialist Dermatology 07/21/22 Catherine Cm MD [address] [place] [address] Assigned Heart and Vascular Provider 07/24/22 11/05/22 Brea Quinn APRN GELATIN PLANT SUPERVISOR [address] [place] [address] Nurse Practitioner Dermatology 09/21/22 Brea Quinn APRN GELATIN PLANT SUPERVISOR 6401 [facility] [place] [facility] [place] [address] Assigned Surgical Provider 10/09/22 05/01/24 [place] [address] [address] [facility] 300 [place] [address] Assigned Musculoskeletal Provider 10/09/22 05/01/24 Livan Sharif MD 6405 [facility] [address] [facility] [address] [place] 380645 Assigned Heart and Vascular Provider 11/06/22 11/12/22 Catherine Cm MD [address] [place] 8163900 [place] [address] Assigned Heart and Vascular Provider 11/13/22 05/27/23 Sydnie Martinez RN Personal Advocate & Liaison (PAL) Family Medicine 03/28/23 07/31/23 Alfonso Renteria MD 5775 [facility] 200 [place] [address] Assigned Neuroscience Provider 04/02/23 Cheng Todd PA-C [address] [place] [address] Assigned PCP 04/30/23 07/15/23 Radha Lomeli APRN GELATIN PLANT SUPERVISOR [address] [facility] [address] [place] [address] Assigned Heart and Vascular Provider 05/28/23 Jelena David OD [address] [place] [address] MD Ophthalmology 06/15/23 Pao Joseph, VJ Personal Advocate & Liaison (PAL) Nurse 08/01/23 11/07/23 Esha Grimm PA-C [address] [place] [phone] Assigned PCP 07/16/23 Valery Veronica PA-C [address] [place] [address] 217815 Physician Behavioral Intervention Specialist Dermatology 09/19/23 Rey Tya MD [address] [place] [address] 403285 Gastroenterology 09/20/23 Rocky Zepeda DO [address] [place] [address] 382775 Physician Gastroenterology 09/20/23 Philip Dumont MD [address] [place] [address] Physician Ophthalmology 09/22/23 Meredith Carrera PA-C [address] [place] [address] Assigned Gastroenterology Provider 11/01/23 Neil Kent MD [address] [address] Dermatology 11/02/23 [place] [address] [address] Neurological Surgery 12/26/23 Audrey Waite PA-C 500 [place] [address] Physician Behavioral Intervention Specialist Dermatology 02/28/24 Valery Veronica PA-C 500712 [place], [place] [address] Physician Behavioral Intervention Specialist Dermatology 04/10/24 Herminia Hatch MD [facility]5 [place], [place] 45[address] Assigned Rheumatology Provider 07/02/24 documented as of this encounter
--- OUTSIDE RECORDS SUMMARY | 2024-07-22 22:45 | XMS_ITS | Encounter Summary ---
Author Organization [place] Address [address] [place] [address] Care Team Providers Care Baseball Club Manager Name Role Phone Lita Oseguera Unavailable Unavailable Marija Edgar APRN MANAGEMENT INTERN Primary Care Provider + Marija Edgar APRN MANAGEMENT INTERN Unavailable [phone] Keisha Dotson MD Unavailable [phone] Diana Desir [facility] Unavailable Rain Galaviz PA-C Unavailable [phone] Tavia Wyatt MD Unavailable [phone] Erica Farrell APRN MANAGEMENT INTERN Unavailable Rich Barrett MD Unavailable [phone] Neil Kent MD Unavailable Diana Desir [facility] Unavailable Livan Sharif MD Unavailable Catherine Cm MD Unavailable + Valery Veronica PA-C Unavailable [phone] Catherine Cm MD Unavailable + Brea Quinn SUPERVISOR GRAIN AND YEAST PLANTS MANAGEMENT INTERN Unavailable Brea Quinn APRN MANAGEMENT INTERN Unavailable Jose Francisco Johnson MD Unavailable Livan Sharif MD Unavailable Catherine Cm MD Unavailable + Sydnie Martinez RN Unavailable Unavailable Alfonso Renteria MD Unavailable [phone] Esha Grimm PA-C Primary Care Provider Cheng Todd PA-C Unavailable Radha Lomeli SUPERVISOR GRAIN AND YEAST PLANTS MANAGEMENT INTERN Unavailable Jelena aDvid OD Unavailable Pao Joseph RN Unavailable Unavailable Esha Grimm PA-C Unavailable [phone] Valery Veronica PA-C Unavailable [phone] Rey Tay MD Unavailable Rocky Zepeda DO Unavailable Philip Dumont MD Unavailable [phone] Meredith Carrera PA-C Unavailable [phone] Neil Kent MD Unavailable Juan Pablo Emmanuel MD Unavailable Audrey Waite PA-C Unavailable JeremíasValery damon PA-C Unavailable Herminia Hatch MD Unavailable Encounter Details Date Type Department Care Team (Late st Contact Info) Description 10/22/2022 [facility] Sports Medicine [facility] [address] [facility] [address] [place] [address] [place] [address] [place] [address] Social History Tobacco Use Types [...] How often do you attend evangelical or yarsani serv ices? Never 09/22/2021 Do [...] Recorded PHQ-2 Score 1 10/11/2022 [facility] - [facility] Stress Questionnaire Answer Date [...] a senior living (including now)? No 09/22/2021 [place] Depression Scale Answer Date Recorded [place] Depression Score 5 01/14/2021 Last EPDS Self Harm Result Not on file 01/14 Education Answer Date Recorded What is the highest level of school you have completed or the highest degree you have received? 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 MANUFACTURING JOB TITLES Gender Identity Female 03/02/2021 5:45 [...] Description 10/23/2024 9:30 AM CDT Office Visit [facility] Neurology [address] [place] [address] [place] [address] [place], [place] 614567 Johnny Penn MD 6944 [place], [place] 993015 11/28/2024 7:45 AM CDT Virtual Visit [facility] Gastroenterology Clinic [address] 4th [place] [address] Meredith Carrera PA-C [address] [place] [address] 380755 documented as of this encounter Visit Diagnoses [...] documented as of this encounter Care Teams Baseball Club Manager Relationship Specialty Start Date End Date Marija Edgar APRN MANAGEMENT INTERN PCP - General Nurse Practitioner 04/30/20 04/14/23 Esha Grimm PA-C [address] [place] [phone] PCP - General Family Medicine 05/04/23 Lita Oseguera Personal Advocate & Liaison (PAL) 02/28/20 03/27/23 Marija Edgar APRN MANAGEMENT INTERN Assigned PCP 06/08/20 04/29/23 Keisha Dotson MD 909 [place], [place] 735085 Assigned Neuroscience Provider 06/04/20 04/01/23 Diana Desir [facility] [address] [place], [place] [phone] Pharmacist Pharmacist 04/17/21 Rain Galaviz PA-C [address] [place] [address] [address] [place] [address] Physician Process Helper Dermatology 04/28/21 Tavia Wyatt MD [address] [place] [address] [address] L[address] [place] [address] Dermatology 07/14/21 Erica Farrell APRN MANAGEMENT INTERN [address] [place] 372095 Nurse Practitioner Cardiovascular Disease 09/09/21 Rich Barrett MD [address] [place] [address] 606645 Physician Ophthalmology 01/21/22 Neil Kent MD 500 [place], [place] 586275 Dermatology 02/24/22 Diana Desir, [facility] [address] [place] [address] Assigned MTM Pharmacist 04/07/22 Livan Sharif MD [address] [place] 002915 Cardiovascular Disease 05/14/22 Catherine Cm MD [address] [place] [address] Cardiovascular Disease 07/21/22 Valery Veronica PA-C 909 [place] [address] Physician Process Helper Dermatology 07/21/22 Catherine Cm MD [address] [facility]00 [place] [address] Assigned Heart and Vascular Provider 07/24/22 11/05/22 Brea Quinn APRN MANAGEMENT INTERN [address] [place] [address] 868375 Nurse Practitioner Dermatology 09/21/22 Brea Quinn APRN MANAGEMENT INTERN 6401 [place], [place] 008382 Assigned Surgical Provider 10/09/22 05/01/24 [place] [address] [address] Assigned Musculoskeletal Provider 10/09/22 05/01/24 Livan Sharif MD [address] [facility] [address] [place] [address] Assigned Heart and Vascular Provider 11/06/22 11/12/22 Catherine Cm MD [address] [facility] [address] [place] [address] Assigned Heart and Vascular Provider 11/13/22 05/27/23 Sydnie Martinez RN Personal Advocate & Liaison (PAL) Family Medicine 03/28/23 07/31/23 Alfonso Renteria MD 5775 [facility] [address] [place] [address] Assigned Neuroscience Provider 04/02/23 Cheng Todd PA-C [address] [place] [address] Assigned PCP 04/30/23 07/15/23 Radha Lomeli, ARLENE MANAGEMENT INTERN 6405 [facility] [address] [place], [place] 814465 Assigned Heart and Vascular Provider 05/28/[address] David [place] [address] [facility] [place] [address] Ophthalmology 06/15/23 Pao Joseph, VJ Personal Advocate & Liaison (PAL) Nurse 08/01/23 11/07/23 Esha Grimm PA-C [address] [place] [address]467[address] Assigned PCP 07/16/23 Valery Veronica PA-C [address] [place] [address] Physician Process Helper Dermatology 09/19/23 Rey Tay MD [address] [place] [address] 914335 Gastroenterology 09/20/23 Rocky Zepeda DO [address] [place] [address] 561035 Physician Gastroenterology 09/20/23 Philip Dumont MD 516 [place] [address] Physician Ophthalmology 09/22/23 Meredith Carrera PA-C 909 [place], [place] 102955 Assigned Gastroenterology Provider 11/01/23 Neil Kent MD [address] 221570 MD Dermatology 11/02/23 [place] [address] 322277 Neurological Surgery 12/26/23 Audrey Waite PA-C 500 [place], [place] 057205 Physician Process Helper Dermatology 02/28/24 Valery Veronica PA-C [address] [place] [address] Physician Process Helper Dermatology 04/10/24 Herminia Hatch MD [facility]5 [place] [address] Assigned Rheumatology Provider 07/02/24 documented as of this encounter
--- OUTSIDE RECORDS SUMMARY | 2024-07-22 22:45 | XMS_ITS | Encounter Summary ---
Author Organization [facility] Address [address] [place] [address] Care Team Providers Care Rigging Slinger Name Role Phone Lita Oseguera Unavailable Unavailable Marija Edgar APRN OSCILLOGRAPH TECHNICIAN Primary Care Provider + Marija Edgar APRN OSCILLOGRAPH TECHNICIAN Unavailable [phone] Keisha Dotson MD Unavailable Diana Desir [facility] Unavailable Rain Galaviz PA-C Unavailable Tavia Wyatt MD Unavailable Erica Farrell APRN OSCILLOGRAPH TECHNICIAN Unavailable Rich Barrett MD Unavailable Neil Kent MD Unavailable Roney Story DPM Unavailable [phone] Diana Desir [facility] Unavailable [phone] Jelena David OD Unavailable Livan Sharif MD Unavailable Livan Sharif MD Unavailable Catherine Cm MD Unavailable + Valery Veronica PA-C Unavailable Catherine Cm MD Unavailable + Johnny Murillo MD Unavailable [phone] Brea Quinn THERMO CEMENTING FOLDER OPERATOR OSCILLOGRAPH TECHNICIAN Unavailable [phone] Brea Quinn THERMO CEMENTING FOLDER OPERATOR OSCILLOGRAPH TECHNICIAN Unavailable [phone] Jose Francisco Johnson MD Unavailable Livan Sharif MD Unavailable Catherine Cm MD Unavailable + Sydnie Martinez RN Unavailable Unavailable Alfonso Renteria MD Unavailable Esha Grimm PA-C Primary Care Provider Cheng Todd PA-C Unavailable [phone] Radha Lomeli THERMO CEMENTING FOLDER OPERATOR OSCILLOGRAPH TECHNICIAN Unavailable Jelena David OD Unavailable Pao Joseph RN Unavailable Unavailable Esha Grimm PA-C Unavailable [phone] Valery Veronica PA-C Unavailable [phone] Rey Tay MD Unavailable Rocky Zepeda DO Unavailable Philip Dumont MD Unavailable [phone] Meredith Carrera PA-C Unavailable Neil Kent MD Unavailable Juan Pablo Emmanuel MD Unavailable Audrey Waite PA-C Unavailable [phone] Valery Veronica PA-C Unavailable [phone] Herminia Hatch MD Unavailable Encounter Details Date Type Department Care Team (Late st Contact Info) Description 07/20/2022 MyC Medical Advice [address] [address] Pao Donahue RN Social History [...] How often do you attend denominational or hoahaoism serv ices? Never 09/22/2021 Do [...] points; Administer PHQ-9 if positive 1 05/13/2022 [facility] - Occupational Stress Questionnaire Answer [...] in a mcc (including now)? No 09/22/2021 [place] Depression Scale Answer Date Recorded [place] Depression Score 5 01/14/2021 Last EPDS Self Harm Result Not on file 01/14 Education Answer Date Recorded What is the highest level of school you have completed or the highest degree you have received? 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 OFFICE MACHINE TECHNICIAN Gender Identity Female 03/02/2021 5:45 PM CDT Sexual Orientation Straight 02/28/2020 12 :51 AM CDT COVID-19 Exposure Response Date Recorded In the last 10 days, have yo u been in contact with someone who was confirmed or suspected to have Coronavirus/COVID-19? No / Unsure 07/23/2022 6:45 AM OFFICE MACHINE TECHNICIAN documented as of this encounter Plan of Treatment Upcoming Encounters Date Type Department Care Team (Late st Contact Info) Description 10/23/2024 9:30 AM CDT Office Visit [facility] Neurology [address], [address] [place] [phone] [place] [address] [phone] Johnny Penn MD [address] [place], [place] [address] 11/28/2024 7:45 AM CDT Virtual Visit [facility] Gastroenterology Clinic [address] [place] [address] Meredith Carrera PA-C [address] [place] [address] 921675 documented as of this encounter Visit Diagnoses [...] as of this encounter Care Teams Rigging Slinger Relationship Specialty Start Date End Date Marija Edgar APRN OSCILLOGRAPH TECHNICIAN PCP - General Nurse Practitioner 04/30/20 04/14/23 Esha Grimm PA-C [address] [place] [phone] PCP - General Family Medicine 05/04/23 Lita Oseguera Personal Advocate & Liaison (PAL) 02/28/20 03/27/23 Marija Edgar APRN OSCILLOGRAPH TECHNICIAN Assigned PCP 06/08/20 04/29/23 Keisha Dotson MD [address] [place], [place] 589655 Assigned Neuroscience Provider 06/04/20 04/01/23 Diana Desir, [facility] [address]33 [place] [address] Pharmacist Pharmacist 04/17/21 Rain Galaviz PA-C [address] [facility] [place] [address] Physician Admissions Manager Dermatology 04/28/21 Tavia Wyatt MD [address] [place] [address] [address] [facility] [place] [address] Dermatology 07/14/21 Erica Farrell APRN OSCILLOGRAPH TECHNICIAN [address] [place] [address] Nurse Practitioner Cardiovascular Disease 09/09/21 Rich Barrett MD [address] [facility] [address] [place], [place] 94[address] Physician Ophthalmology 01/21/22 Neil Kent MD 500 [place], [place] 009795 Dermatology 02/24/22 Roney Story DPM [address] [facility] [address] [place], [place] 0638[address] Assigned Musculoskeletal Provider 03/20/22 08/13/22 Diana Desir, [facility] [address] [place] [address] Assigned MTM Pharmacist 04/07/22 Jelena David OD [address] [facility] [place] [address] Assigned Surgical Provider 05/08/22 10/08/22 Livan Sharif MD [address] [place] [address] Cardiovascular Disease 05/14/22 Livan Sharif MD [address] TOM[address]ia Sylvia, [facility] [address] [place] [address] Assigned Heart and Vascular Provider 06/12/22 07/23/22 Catherine Cm MD [address] [facility]00 [place] [address] Cardiovascular Disease 07/21/22 Valery Veronica, PA-C [address] [place] [address] 154495 Physician Admissions Manager Dermatology 07/21/22 Catherine Cm MD [address] [facility] [place] [address] Assigned Heart and Vascular Provider 07/24/22 11/05/22 Johnny Murillo MD [facility] [address] 855034 Assigned Musculoskeletal Provider 08/14/22 10/08/22 Brea Quinn APRN OSCILLOGRAPH TECHNICIAN [address] [place] [address] 503685 Nurse Practitioner Dermatology 09/21/22 Brea Quinn APRN OSCILLOGRAPH TECHNICIAN [address] [place] [address] [place] 564322 Assigned Surgical Provider 10/09/22 05/01/24 [place] [address] [place] [address] [phone] Assigned Musculoskeletal Provider 10/09/22 05/01/24 Livan Sharif MD [address], [facility] [address] [place] [address]85 Assigned Heart and Vascular Provider 11/06/22 11/12/22 Catherine Cm MD [address] [place], [place] 287745 Assigned Heart and Vascular Provider 11/13/22 05/27/23 Sydnie Martinez, RN Personal Advocate & Liaison (PAL) Family Medicine 03/28/23 07/31/23 Alfonso Renteria MD [address] [facility] 200 [place] [address] Assigned Neuroscience Provider 04/02/23 Cheng Todd PA-C [address] [place] [address] [phone] Assigned PCP 04/30/23 07/15/23 Radha Lomeli APRN OSCILLOGRAPH TECHNICIAN [address] [place] [address] Assigned Heart and Vascular Provider 05/28/23 Jelena David OD [address] [facility] [place] [address] Ophthalmology 06/15/23 Pao Joseph, VJ Personal Advocate & Liaison (PAL) Nurse 08/01/23 11/07/23 Esha Grimm PAUcheC [address] [place] [phone] Assigned PCP 07/16/23 Valery Veronica PA-C 909 [place], [place] 359215 Physician Admissions Manager Dermatology 09/19/23 Rey Tay MD [address] [place] [address] MD Gastroenterology 09/20/23 Rocky Zepeda DO 500 [place], [place] 166795 Physician Gastroenterology 09/20/23 Philip Dumont MD [address] [place] [address] 898935 Physician Ophthalmology 09/22/23 Meredith Carrera PA-C [address] [place], [place] 205835 Assigned Gastroenterology Provider 11/01/23 Neil Kent MD [address] [place] [address] Dermatology 11/02/23 [place] [address] [place] [address] Neurological Surgery 12/26/23 Audrey Waite PA-C 500 [place] [address] Physician Admissions Manager Dermatology 02/28/24 Valery Veronica PA-C [address] [place] [address] Physician Admissions Manager Dermatology 04/10/24 Herminia Hatch MD [address] [place] [address] Assigned Rheumatology Provider 07/02/24 documented as of this encounter
--- OUTSIDE RECORDS SUMMARY | 2024-07-22 22:45 | XMS_ITS | Encounter Summary ---
Author Organization [facility] Address [address] [place] [address] Care Team Providers Care Field Administrator Name Role Phone Lita Oseguera Unavailable Unavailable Marija Edgar APRN STAVE BLOCK SPLITTER Primary Care Provider + Marija Edgar APRN STAVE BLOCK SPLITTER Unavailable [phone] Keisha Dotson MD Unavailable Diana Desir [facility] Unavailable Rain Galaviz PA-C Unavailable Tavia Wyatt MD Unavailable [phone] Erica Farrell APRN STAVE BLOCK SPLITTER Unavailable Tavia Wyatt MD Unavailable [phone] Rich Barrett MD Unavailable [phone] Neil Kent MD Unavailable Roney Story DPM Unavailable [phone] Diana Desir [facility] Unavailable [phone] Jelena David OD Unavailable Galo Burrell MD Unavailable Unavailable Livan Sharif MD Unavailable Livan Sharif MD Unavailable Catherine Cm MD Unavailable + Valery Veronica PA-C Unavailable Catherine Cm MD Unavailable + Johnny Murillo MD Unavailable [phone] Brea Quinn DELI WORKER STAVE BLOCK SPLITTER Unavailable [phone] Brea Quinn DELI WORKER STAVE BLOCK SPLITTER Unavailable [phone] Jose Francisco Johnson MD Unavailable Livan Sharif MD Unavailable Catherine Cm MD Unavailable + Sydnie Martinez RN Unavailable Unavailable Alfonso Renteria MD Unavailable [phone] Esha Grimm PA-C Primary Care Provider Cheng Todd PA-C Unavailable Radha Lomeli DELI WORKER STAVE BLOCK SPLITTER Unavailable Jelena David OD Unavailable Pao Joseph RN Unavailable Unavailable Esha Grimm PA-C Unavailable [phone] Valery Veronica PA-C Unavailable [phone] Rey Tay MD Unavailable [place] Zepeda DO Unavailable Philip Dumont MD Unavailable Meredith Carrera PA-C Unavailable Neil Kent MD Unavailable Juan Pablo Emmanuel MD Unavailable Audrey Waite PA-C Unavailable Valery Veronica PA-C Unavailable Herminia Hatch MD [facility] Encounter Details Date Type Department Care Team (Late st Contact Info) Description 04/20/2022 MyC Medical Advice [facility] Heart [address] [place] [phone] Margaret Rendon, RN Social History Tobacco Use [...] often do you attend sabianism or methodist serv ices? Never 09/22/2021 Do [...] Answer Date Recorded PHQ-2 Score 2 12/18/2021 [facility] - [...] in a alf (including now)? No 09/22/2021 [place] Depression Scale [...] PM CDT Legal Sex Female 4:13 AM CARBON FURNACE OPERATOR Gender Identity Female 03/02/2021 5:45 PM [...] Description 10/23/2024 9:30 AM CDT Office Visit [facility] Neurology [address], [address] [place] [address] [place] [address] [place] [address] Johnny Penn MD [address] [facility] [place] [address] 11/28/2024 7:45 AM CDT Virtual Visit [facility] Gastroenterology Clinic [address] 4th [place] [address] Meredith Carrera PA-C [address] [place] [address] 323135 documented as of this encounter Visit Diagnoses Not on filedocumented in this encounter Additional Health Concerns Infection Onset Date Last Indicated Resolved Time Rule Out COVID-19 04/26/2022 04/26/2022 04/26/2022 6:47 AM CDT Rule Out COVID-19 05/17/2022 05/17/2022 05/17/2022 10:20 PM CARBON FURNACE OPERATOR Rule Out COVID-19 06/09/2022 06/09/2022 06/09/2022 9:35 AM CARBON FURNACE OPERATOR COVID-19 06/09/2022 06/09/2022 06/30/2022 11:4 1 PM CARBON FURNACE OPERATOR Rule Out COVID-19 11/10/2022 11/10/2022 11/11/2022 12:17 PM CDT Rule Out COVID-19 03/07/2023 03/07/2023 03/07/2023 1:20 PM CDT Rule Out COVID-19 12/26/2023 12/26/2023 12/26/2023 9:50 AM CDT Rule Out COVID-19 04/09/2024 04/09/2024 04/10/2024 6:48 PM CDT Assessment Noted Time PHQ-9 Depression Total Score: 2 12/19/19 2:50 PM CDT documented as of this encounter Care Teams Field Administrator Relationship Specialty Start Date End Date Marija Edgar APRN STAVE BLOCK SPLITTER PCP - General Nurse Practitioner 04/30/20 04/14/23 Esha Grimm PA-C [address] [place] [address] PCP - General Family Medicine 05/04/23 Lita Oseguera Personal Advocate & Liaison (PAL) 02/28/20 03/27/23 Marija Edgar APRN STAVE BLOCK SPLITTER Assigned PCP 06/08/20 04/29/23 Keisha Dotson MD 9 [place] [address] Assigned Neuroscience Provider 06/04/20 04/01/23 Diana Desir, [facility] [address] [place] [address] Pharmacist Pharmacist 04/17/21 Rain Galaviz PA-C [address] [place] [address] [address] [place] [address] Physician Local Company Flatbed Truck Driver Dermatology 04/28/21 Tavia Wyatt MD [address] [place] [address] [address] [place] [address] Dermatology 07/14/21 Erica Farrell APRN STAVE BLOCK SPLITTER [address] [facility] [address] [place], [place] 6[address] Nurse Practitioner Cardiovascular Disease 09/09/21 Tavia Wyatt MD [address] [place], [place] [phone] Assigned Surgical Provider 11/29/21 05/07/22 Rich Barrett MD [address] 383225 Physician Ophthalmology 01/21/22 Neil Kent MD [address] [place], [place] [address] Dermatology 02/24/22 [place] [address] [facility] [address] [place] [address] Assigned Musculoskeletal Provider 03/20/22 08/13/22 Diana Desir, [facility] [address] [place], [place] 3765[address] Assigned MTM Pharmacist 04/07/22 Jelena David OD [address] [facility] [place] [address] Assigned Surgical Provider 05/08/22 10/08/22 Galo Burrell MD Assigned Heart and Vascular Provider 04/17/22 06/11/22 Livan Sharif MD [address], [address] [place] [address] Cardiovascular Disease 05/14/22 Livan Sharif MD [address], [address] [place] [address] Assigned Heart and Vascular Provider 06/12/22 07/23/22 Catherine Cm MD [address] [facility] [address] [place] [address] Cardiovascular Disease 07/21/22 Valery Veronica PA-C [address] [place], [place] 545665 Physician Local Company Flatbed Truck Driver Dermatology 07/21/22 Catherine Cm MD [address] [place] [address] Assigned Heart and Vascular Provider 07/24/22 11/05/22 Johnny Murillo MD [facility] [address] [place] [address] Assigned Musculoskeletal Provider 08/14/22 10/08/22 Brea Quinn APRN STAVE BLOCK SPLITTER [address] [place] [address] Nurse Practitioner Dermatology 09/21/22 Brea Quinn APRN STAVE BLOCK SPLITTER [address] [facility] [place] [address] Assigned Surgical Provider 10/09/22 05/01/24 [place] [address] [address] [facility] [address] [place] [address] Assigned Musculoskeletal Provider 10/09/22 05/01/24 Livan Sharif MD [address], [facility] [address] [place] [address] Assigned Heart and Vascular Provider 11/06/22 11/12/22 Catherine Cm MD [address] [facility] [address] [place], [place] [address] Assigned Heart and Vascular Provider 11/13/22 05/27/23 Sydnie Martinez RN Personal Advocate & Liaison (PAL) Family Medicine 03/28/23 07/31/23 Alfonso Renteria MD [address] [facility] 200 [place] [address] Assigned Neuroscience Provider 04/02/23 Cheng Todd PA-C [address] [place] [address] [phone] Assigned PCP 04/30/23 07/15/23 Radha Lomeli APRN CNP [address] [facility] [address] [place] [address] Assigned Heart and Vascular Provider 05/28/23 Jelena David OD [address] [facility] [place] [address] MD Ophthalmology 06/15/23 Pao Joseph, VJ Personal Advocate & Liaison (PAL) Nurse 08/01/23 11/07/23 Esha Grimm PA-C [address] [place] [phone] Assigned PCP 07/16/23 Valery Veronica PA-C [address] [place] [address] 362185 [employer]ician Local [employer] Flatbed Truck Driver Dermatology 09/19/23 Rey Tay MD [address] [place] [address] 196395 Gastroenterology 09/20/23 Rocky Zepeda DO [address] [place] [address] 198765 Physician Gastroenterology 09/20/23 Philip Dumont MD [address] [place] [address] 943715 Physician Ophthalmology 09/22/23 Meredith Carrera PA-C [address] [place] [address] Assigned Gastroenterology Provider 11/01/23 Neil Kent MD [address] [address] Dermatology 11/02/23 [place] [address] [address] Neurological Surgery 12/26/23 Audrey Waite PA-C 500 [place] [address] Physician Local Company Flatbed Truck Driver Dermatology 02/28/24 Valery Veronica PA-C [address]170 [address] [place] [address] Physician Local Company Flatbed Truck Driver Dermatology 04/10/24 Herminia Hatch MD [facility] [place], [place] [address]3981125 Assigned Rheumatology Provider 07/02/24 documented as of this encounter
--- OUTSIDE RECORDS SUMMARY | 2024-07-22 22:45 | XMS_ITS | Encounter Summary ---
Author Organization [facility] Address [address] [place] [address] Care Team Providers Care Residential Leasing Manager Name Role Phone Lita Oseguera Unavailable Unavailable Marija Edgar APRN LICENSED DISPENSING OPTICIAN Primary Care Provider + Marija Edgar APRN LICENSED DISPENSING OPTICIAN Unavailable [phone] Keisha Dotson MD Unavailable Diana Desir [facility] Unavailable Rain Galaviz PA-C Unavailable Tavia Wyatt MD Unavailable Erica Farrell APRN LICENSED DISPENSING OPTICIAN Unavailable Rich Barrett MD Unavailable Neil Kent MD Unavailable Roney Story DPM Unavailable [phone] Diana Desir [facility] Unavailable Jelena David OD Unavailable [phone] Livan Sharif MD Unavailable Livan Sharif MD Unavailable Catherine Cm MD Unavailable + Valery Veronica PA-C Unavailable Catherine Cm MD Unavailable + Johnny Murillo MD Unavailable [phone] Brea Quinn FURNACE LOADER LICENSED DISPENSING OPTICIAN Unavailable [phone] Brea Quinn FURNACE LOADER LICENSED DISPENSING OPTICIAN Unavailable [phone] Jose Francisco Johnson MD Unavailable Livan Sharif MD Unavailable Catherine Cm MD Unavailable + Sydnie Martinez RN Unavailable Unavailable Alfonso Renteria MD Unavailable Esha Grimm PA-C Primary Care Provider Cheng Todd PA-C Unavailable [phone] Radha Lomeli FURNACE LOADER LICENSED DISPENSING OPTICIAN Unavailable Jelena David OD Unavailable Pao Joseph RN Unavailable Unavailable Esha Grimm PA-C Unavailable [phone] Valery Veronica PA-C Unavailable [phone] Rey Tay MD Unavailable Rocky Zepeda DO Unavailable Philip Dumont MD Unavailable [phone] Meredith Carrera PA-C Unavailable Neil Kent MD Unavailable Juan Pablo Emmanuel MD Unavailable [phone] Audrey Waite PA-C Unavailable [phone] Valery Veronica PA-C Unavailable Herminia Hatch MD Unavailable Encounter Details Date Type Department Care Team (Late st Contact Info) Description 07/20/2022 MyC Medical Advice [facility] [address] [facility] [address] [place] [address] Livan Sharif MD [address] [place] [address] Social History Tobacco Use Types Packs/Day Years [...] How often do you attend synagogue or anabaptist serv ices? Never 09/22/2021 Do [...] Administer PHQ-9 if positive 1 05/13/2022 [facility] [place] of Occupat ional Health - Occupational [...] in a longterm (including now)? No 09/22/2021 [place] Depression Scale Answer Date Recorded [place] Depression Score 5 01/14/2021 Last EPDS Self Harm Result Not on file 01/14 Education Answer Date Recorded What is the highest level of school you have completed or the highest degree you have received? 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 MOLD HOISTER Gender Identity Female 03/02/2021 5:45 PM CDT Sexual Orientation Straight 02/28/2020 12 :51 AM CDT COVID-19 Exposure Response Date Recorded In the last 10 days, have yo u been in contact with someone who was confirmed or suspected to have Coronavirus/COVID-19? No / Unsure 07/23/2022 6:45 AM MOLD HOISTER documented as of this encounter Plan of Treatment Upcoming Encounters Date Type Department Care Team (Late st Contact Info) Description 10/23/2024 9:30 AM CDT Office Visit [facility] Neurology Clin[facility] [address], [address] [place] [address] [place] [address] [place] [address] Johnny Penn MD [address] [facility] [place] [address] 11/28/2024 7:45 AM CDT Virtual Visit [facility] Gastroenterology [facility] [address] 4th [place] [address] Meredith Carrera PA-C [address] [place] [address] [phone] documented as of this encounter Visit Diagnoses [...] documented as of this encounter Care Teams Residential Leasing Manager Relationship Specialty Start Date End Date Marija Edgar APRN LICENSED DISPENSING OPTICIAN PCP - General Nurse Practitioner 04/30/20 04/14/23 Esha Grimm PA-C [address] [place] [phone] PCP - General Family Medicine 05/04/23 Lita Oseguera Personal Advocate & Liaison (PAL) 02/28/20 03/27/23 Marija Edgar APRN LICENSED DISPENSING OPTICIAN Assigned PCP 06/08/20 04/29/23 Keisha Dotson MD [address] [place], [place] 559025 Assigned Neuroscience Provider 06/04/20 04/01/23 Diana Desir [facility] [address] [place], [place] [id number] Pharmacist Pharmacist 04/17/21 Rain Galaviz PA-C [address] [place] [address] [place] [address] Physician Exchange Clerk Dermatology 04/28/21 Tavia Wyatt MD [address] [place] [address] [address] [place] [address] Dermatology 07/14/21 Erica Farrell APRN LICENSED DISPENSING OPTICIAN [address] [place] [address] Nurse Practitioner Cardiovascular Disease 09/09/21 Rich Barrett MD [address] [place] [address] 520485 Physician Ophthalmology 01/21/22 Neil Kent MD 500 [place] [address] Dermatology 02/24/22 Roney Story DPM [address] [facility] [place] [place] [address] Assigned Musculoskeletal Provider 03/20/22 08/13/22 Diana Desir, [facility] [address] [place] [address] Assigned MTM Pharmacist 04/07/22 Jelena David OD [address] [facility] [place] [address] Assigned Surgical Provider 05/08/22 10/08/22 Livan Sharif MD [address] [place] [address] Cardiovascular Disease 05/14/22 Livan Sharif MD [address], [facility] [address] [place] [id number] Assigned Heart and Vascular Provider 06/12/22 07/23/22 Catherine Cm MD [address] [facility]00 [place] [address] Cardiovascular Disease 07/21/22 Valery Veronica, PA-C [address] [place] [address] 949995 Physician Exchange Clerk Dermatology 07/21/22 Catherine Cm MD [address] [place] [phone] [place] [address] Assigned Heart and Vascular Provider 07/24/22 11/05/22 Johnny Murillo MD [address] [place] [address] [phone] Assigned Musculoskeletal Provider 08/14/22 10/08/22 Brea Quinn APRN LICENSED DISPENSING OPTICIAN [address] [place] [address] Nurse Practitioner Dermatology 09/21/22 Brea Quinn APRN LICENSED DISPENSING OPTICIAN [address] [place] [address] [place] [address] Assigned Surgical Provider 10/09/22 05/01/24 [place] [address] [place] [address] Assigned Musculoskeletal Provider 10/09/22 05/01/24 Livan Sharif MD [address], [facility] [address] [place] [address] Assigned Heart and Vascular Provider 11/06/22 11/12/22 Catherine Cm MD [address] [facility] [address] [place] [address] Assigned Heart and Vascular Provider 11/13/22 05/27/23 Sydnie Martinez RN Personal Advocate & Liaison (PAL) Family Medicine 03/28/23 07/31/23 Alfonso Renteria MD [address] [facility] 200 [place] [address] Assigned Neuroscience Provider 04/02/23 Cheng Todd PA-C [address] [place] [address] Assigned PCP 04/30/23 07/15/23 Radha Lomeli, ARLENE LICENSED DISPENSING OPTICIAN [address] [place] [address] Assigned Heart and Vascular Provider 05/28/23 Jelena David OD [facility] [place] [address] Ophthalmology 06/15/23 Pao Joseph, VJ Personal Advocate & Liaison (PAL) Nurse 08/01/23 11/07/23 Esha Grimm PA-C [address] [place] [address] Assigned PCP 07/16/23 Valery Veronica PA-C [address] [place] [address] Physician Exchange Clerk Dermatology 09/19/23 Rey Tay MD [address] [place] [address] MD Gastroenterology 09/20/23 Rocky Zepeda DO [address] [place] [address] 579625 Physician Gastroenterology 09/20/23 Philip Dumont MD [address] [place] [address] Physician Ophthalmology 09/22/23 Meredith Carrera PA-C [address] [place] [address] Assigned Gastroenterology Provider 11/01/23 Neil Kent MD [address] [address] Dermatology 11/02/23 [place] [address] [place] 4[address]47 Neurological Surgery 12/26/23 Audrey Waite PA-C [address] [place] [address] 500975 Physician Exchange Clerk Dermatology 02/28/24 Valery Veronica PA-C [address] [place] [address] Physician Exchange Clerk Dermatology 04/10/24 Herminia Hatch MD [address] [place] [address] [id number] Assigned Rheumatology Provider 07/02/24 documented as of this encounter
--- OUTSIDE RECORDS SUMMARY | 2024-07-22 22:45 | XMS_ITS | Encounter Summary ---
Author Organization [facility] Address [address] [place] [address] Care Team Providers Care Enterprise Application Architect Name Role Phone Lita Oseguera Unavailable Unavailable Marija Edgar APRN TRAVELING SECRETARY Primary Care Provider + Marija Edgar APRN TRAVELING SECRETARY Unavailable [phone] Keisha Dotson MD Unavailable [phone] Diana Desir [facility] Unavailable Rain Galaviz PA-C Unavailable Tavia Wyatt MD Unavailable [phone] Erica Farrell APRN TRAVELING SECRETARY Unavailable Rich Barrett MD Unavailable [phone] Neil Kent MD Unavailable Diana Desir [facility] Unavailable Livan Sharif MD Unavailable Catherine Cm MD Unavailable + Valery Veronica PA-C Unavailable [phone] Catherine Cm MD Unavailable + Brea Quinn USED [employer] TRAVELING SECRETARY Unavailable [phone] Brea Quinn APRN TRAVELING SECRETARY Unavailable Jose Francisco Johnson MD Unavailable Livan Sharif MD Unavailable Catherine Cm MD Unavailable + Sydnie Martinez RN Unavailable Unavailable Alfonso Renteria MD Unavailable [phone] Esha Grimm PA-C Primary Care Provider Cheng Todd PA-C Unavailable Radha Lomeli USED [employer] TRAVELING SECRETARY Unavailable Jelena David Radha OD Unavailable Pao Joseph RN Unavailable Unavailable Esha Grimm PA-C Unavailable [phone] Valery Veronica PA-C Unavailable [phone] Rey Tay MD Unavailable Rocky Zepeda DO Unavailable Philip Dumont MD Unavailable Meredith Carrera PA-C Unavailable Neil Kent MD Unavailable Juan Pablo Emmanuel MD Unavailable [phone] Audrey Waite PA-C Unavailable [phone] Valery Veronica PA-C Unavailable Herminia Hatch MD Unavailable Reason for Visit * Reason Onset Date Comments Pt. Information/instruction 10/11/2022 Appointment 10/11/2022 Encounter Details Date Type Department Care Team (Late st Contact Info) Description 10/11/2022 [facility] [address] [facility] [address] [place] [address] [place] [address] [place] [address] [place] [address] Pt. Information/instructio n; Appointment Social History Tobacco [...] How often do you attend jewish or jain serv ices? Never 09/22/2021 Do [...] in a fpc (including now)? No 09/22/2021 [place] Depression Scale Answer Date Recorded [place] Depression Score 5 01/14/2021 Last EPDS Self Harm Result Not on file 01/14 Education Answer Date Recorded What is the highest level of school you have completed or the highest degree you have received? 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 FIREAR[employer] SALES ASSOCIATE Gender Identity Female 03/02/2021 5:45 PM [...] encounter. Please see new request below from [facility] and advise. Mandi Byrd RN * Telephone Encounter - Treasure Lee - 10/15/2022 2:14 PM CDT Health Call Center Phone Message May a detailed message be left on voicemail: yes Reason for Call: Other: [facility] wondering if she can also be conference in on patient's upcoming appointment (10/27). Action Taken: Other: [facility] Sports Medicine Travel Screening: Not Applicable * Telephone Encounter - Mary Easley - 10/12/2022 12:47 PM CDT Called Rosal[facility] to discuss what they are needing from 's office. No answer. Left message to call back Kristina Easley ATC * Telephone Encounter - Treasure Lee - 10/11/2022 10:05 AM CDT [facility] Call Center Phone Message May a detailed message be left on voicemail: yes Reason for Call: Other: Please contact patient's loading machine adjuster, Rosalva so she can authorize patient's MRI. Rosalva's contact info: phone# [phone] fax# [phone] Action Taken: Other: [facility] Sports Medicine Travel Screening: Not Applicable documented in this encounter Plan of Treatment Upcoming Encounters Date Type Department Care Team ([facility] Contact Info) Description 10/23/2024 9:30 AM CDT Office Visit [facility] Neurology [address], [address] [place] [address] [place] [address] [place] [address] 046697 Johnny Penn MD 6545 [place], [place] [address] 11/28/2024 7:45 AM CDT Virtual Visit [facility] Gastroenterology Clinic [address] [place] [phone] Meredith Carrera PA-C [address] [place] [address] 519495 documented as of this encounter Visit Diagnoses [...] documented as of this encounter Care Teams Enterprise Application Architect Relationship Specialty Start Date End Date Marija Edgar APRN TRAVELING SECRETARY PCP - General Nurse Practitioner 04/30/20 04/14/23 Esha Grimm PA-C [address] [place] [phone] PCP - General Family Medicine 05/04/23 Lita Oseguera Personal Advocate & Liaison (PAL) 02/28/20 03/27/23 Marija Edgar APRN TRAVELING SECRETARY Assigned PCP 06/08/20 04/29/23 Keisha Dotson MD [address] [place] [address] Assigned Neuroscience Provider 06/04/20 04/01/23 [facility] 3033 [place] [address] Pharmacist Pharmacist 04/17/21 Rain Galaviz PA-C [address] [place] [address] [address] [place] [address] Physician Rod Bending Machine Operator Dermatology 04/28/21 Tavia yWatt MD [address] [place] [address] [address] [place] [address] Dermatology 07/14/21 Erica Farrell APRN [facility] [address] [place] [address] Nurse Practitioner Cardiovascular Disease 09/09/21 Rich Barrett MD [address] [place] [address] 859355 Physician Ophthalmology 01/21/22 Neil Kent MD [address] [place] [address] 280875 Dermatology 02/24/22 [facility] [address] [place] [address] Assigned MTM Pharmacist 04/07/22 Livan Sharif MD [address], [facility] [address] [place] [address] Cardiovascular Disease 05/14/22 Catherine Cm MD [address] [facility] [address] [place] [address] Cardiovascular Disease 07/21/22 Valery Veronica, PA-C [address] [place], [place] 459525 Physician Rod Bending Machine Operator Dermatology 07/21/22 Catherine Cm MD [address] [place], [place] 856885 Assigned Heart and Vascular Provider 07/24/22 11/05/22 Brea Quinn APRN TRAVELING SECRETARY 500 [place] [address] Nurse Practitioner Dermatology 09/21/22 Brea Quinn APRN TRAVELING SECRETARY [address] [place] [address] Assigned Surgical Provider 10/09/22 05/01/24 [place] [address] [place] [address] [address] Assigned Musculoskeletal Provider 10/09/22 05/01/24 Livan Sharif MD [address], [facility] [address] [place] [address] Assigned Heart and Vascular Provider 11/06/22 11/12/22 Catherine Cm MD [address] [facility] [address] [place] [address] Assigned Heart and Vascular Provider 11/13/22 05/27/23 Sydnie Martinez RN Personal Advocate & Liaison (PAL) Family Medicine 03/28/23 07/31/23 Alfonso Renteria MD [address] [facility] 200 [place], [place] 701196 Assigned Neuroscience Provider 04/02/23 Cheng Todd PA-C [address] [place] [address] [phone] Assigned PCP 04/30/23 07/15/23 Radha Lomeli APRN CNP [address] [facility] [address] [place] [address] Assigned Heart and Vascular Provider 05/28/23 Jelena David OD [address] [facility] [place] [address] MD Ophthalmology 06/15/23 Pao Joseph, VJ Personal Advocate & Liaison (PAL) Nurse 08/01/23 11/07/23 Esha Grimm PA-C [address] [place] [phone] Assigned PCP 07/16/23 Valery Veronica PA-C [address] [place] [address] Physician Rod Bending Machine Operator Dermatology 09/19/23 Rey Tay MD [address] [place] [address] 276925 MD Gastroenterology 09/20/23 Rocky Zepeda DO [address] [place] [address] 985665 Physician Gastroenterology 09/20/23 Philip Dumont MD [address] [place] [address] 598525 Physician Ophthalmology 09/22/23 Meredith Carrera PA-C [address] [place] [address] 758905 Assigned Gastroenterology Provider 11/01/23 Neil Kent MD [address] [address] Dermatology 11/02/23 [place] [address] [place] [address] 246637 Neurological Surgery 12/26/23 Audrey Waite PAUcheC 500 [place] [address] Physician Rod Bending Machine Operator Dermatology 02/28/24 Valery Veronica PABaldo 380116 [address], [place] [address] Physician Rod Bending Machine Operator Dermatology 04/10/24 Herminia Hatch MD [facility]5 [place], [place] 93558125 Assigned Rheumatology Provider 07/02/24 documented as of this encounter
--- OUTSIDE RECORDS SUMMARY | 2024-07-22 22:45 | XMS_ITS | Encounter Summary ---
Author Organization [place] Address [address] [place] [address] Care Team Providers Care Events Associate Name Role Phone Lita Oseguera Unavailable Unavailable Marija Edgar APRN TRIAGE ASSISTANT Primary Care Provider + Marija Edgar APRN TRIAGE ASSISTANT Unavailable [phone] Keisha Dotson MD Unavailable Diana Desir [facility] Unavailable Rain Galaviz PA-C Unavailable [phone] Tavia Wyatt MD Unavailable Erica Farrell APRN TRIAGE ASSISTANT Unavailable Rich Barrett MD Unavailable [phone] Neil Kent MD Unavailable Diana Desir [facility] Unavailable Jelena David OD Unavailable Livan Sharif MD Unavailable Catherine Cm MD Unavailable + Valery Veronica PA-C Unavailable Catherine Cm MD Unavailable + Johnny Murillo MD Unavailable [phone] Brea Quinn COTTON GROWER TRIAGE ASSISTANT Unavailable [phone] Brea Quinn COTTON GROWER TRIAGE ASSISTANT Unavailable [phone] Jose Francisco Johnson MD Unavailable Livan Sharif MD Unavailable Catherine Cm MD Unavailable + Sydnie Martinez RN Unavailable Unavailable Alfonso Renteria MD Unavailable Esha Grimm PA-C Primary Care Provider Cheng Todd PA-C Unavailable [phone] Radha Lomeli COTTON GROWER TRIAGE ASSISTANT Unavailable Jelena David OD Unavailable Pao Joseph RN Unavailable Unavailable Esha Grimm PA-C Unavailable [phone] Valery Veronica PA-C Unavailable Rey Tay MD Unavailable Rocky Zepeda DO Unavailable Philip Dumont MD Unavailable Meredith Carrera PA-C Unavailable Neil Kent MD Unavailable Juan Pablo Emmanuel MD Unavailable Audrey Waite PA-C Unavailable Valery Veronica PA-C Unavailable [phone] Herminia Hatch MD Unavailable Encounter Details Date Type Department Care Team (Late st Contact Info) Description 10/06/2022 [facility] Medical Advice [address] [phone] Brea Quinn, COTTON GROWER TRIAGE ASSISTANT [address] [facility] [place] [address] Social History Tobacco Use Types Packs/Day Years [...] How often do you attend presybeterian or orthodoxy serv ices? Never 09/22/2021 Do [...] points; Administer PHQ-9 if positive 1 10/[facility]22 [facility] - [facility]ational Stress [...] in a jail (including now)? No 09/22/2021 [place] Depression Scale Answer Date Recorded [place] Depression Score 5 01/14/2021 Last EPDS Self Harm Result Not on file 01/14 Education Answer Date Recorded What is the highest level of school you have completed or the highest degree you have received? 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 COMMUNICATIONS TOWER TECHNICIAN Gender Identity Female 03/02/2021 5:45 PM [...] [facility] Neurology [address], [address] [place] [address] [place] [address] [place] [address] [phone] Johnny Penn MD [address] [place], [place] [id number] 11/28/2024 7:45 AM CDT Virtual Visit [facility] Gastro[facility]ology Clinic [address] [place] [address] Meredith Carrera PA-C [address] [place] [address] documented as of this encounter Visit [...] Depression Total Score: 5 08/27/19 1:14 PM COMMUNICATIONS TOWER TECHNICIAN documented as of this encounter Care Teams Events Associate Relationship Specialty Start Date End Date Marija Edgar APRN TRIAGE ASSISTANT PCP - General Nurse Practitioner 04/30/20 04/14/23 Esha Grimm PA-C [address] [place] [phone] PCP - General Family Medicine 05/04/23 Lita Oseguera Personal Advocate & Liaison (PAL) 02/28/20 03/27/23 Marija Edgar APRN TRIAGE ASSISTANT Assigned PCP 06/08/20 04/29/23 Keisha Dotson MD [address] [place], [place] 342965 Assigned Neuroscience Provider 06/04/20 04/01/23 Diana Desir, [facility] [address] [place] [address] Pharmacist Pharmacist 04/17/21 Rain Galaviz PA-C [address] [facility] [place] [address] Physician Powder Cutting Operator Dermatology 04/28/21 Tavia Wyatt MD [address] [place] [address] [address] [facility] [id number] Dermatology 07/14/21 Erica Farrell APRN TRIAGE ASSISTANT [address] [place] [address] Nurse Practitioner Cardiovascular Disease 09/09/21 Rich Barrett MD [address] [facility], [address] 578[address] Physician Ophthalmology 01/21/22 Neil Kent MD [address] [place], [place] 306[address] Dermatology 02/24/22 Diana Desir, [facility] [address] [place], [place] 835816 Assigned MTM Pharmacist 04/07/22 Jelena David OD [address] [facility] [place] [address] Assigned Surgical Provider 05/08/22 10/08/22 Livan Sharif MD [address] [place] [address] Cardiovascular Disease 05/14/22 Catherine Cm MD [address] [place] [address] Cardiovascular Disease 07/21/22 Valery Veronica, PA-C [address]09 [place] [address] Physician Powder Cutting Operator Dermatology 07/21/22 Catherine Cm MD [address] [facility]00 [place] [address] Assigned Heart and Vascular Provider 07/24/22 11/05/22 Johnny Murillo MD [facility] [address] Assigned Musculoskeletal Provider 08/14/22 10/08/22 Brea Quinn APRN TRIAGE ASSISTANT [address] [place] [address] 245425 Nurse Practitioner Dermatology 09/21/22 Brea Quinn APRN TRIAGE ASSISTANT [address] [place] [address] [place] [id number] Assigned Surgical Provider 10/09/22 05/01/24 [place] [address] [address] Assigned Musculoskeletal Provider 10/09/22 05/01/24 Livan Sharif MD [address] [facility] [address] [place] 510385 Assigned Heart and Vascular Provider 11/06/22 11/12/22 Catherine Cm MD [address] [facility]00 [place] 734875 Assigned Heart and Vascular Provider 11/13/22 05/27/23 Sydnie Martinez, RN Personal Advocate & Liaison (PAL) Family Medicine 03/28/23 07/31/23 Alfonso Renteria MD [address] [facility] [address] [place] [address] Assigned Neuroscience Provider 04/02/23 Cheng Todd PA-C [address] [place] [address] [phone] Assigned PCP 04/30/23 07/15/23 Radha Lomeli APRN TRIAGE ASSISTANT 6[address] [facility] [address] [place], [place] 5048[address] Assigned Heart and Vascular Provider 05/28/23 Jelena David OD [address] [place] [address] Ophthalmology 06/15/23 Pao Joseph, VJ Personal Advocate & Liaison (PAL) Nurse 08/01/23 11/07/23 Esha Grimm PA-C [address] [place] [address] Assigned PCP 07/16/23 Valery Veronica PA-C [address] [place] [address] 964935 Physician Powder Cutting Operator Dermatology 09/19/23 Rey Tay MD [address] [place], [place] 271715 Gastroenterology 09/20/23 Rocky Zepeda DO 500 [place] [address] Physician Gastroenterology 09/20/23 Philip Dumont MD 516 [place] [address] Physician Ophthalmology 09/22/23 Meredith Carrera PA-C 909 [place] [address] Assigned Gastroenterology Provider 11/01/23 Neil Kent MD [address] [address] MD Dermatology 11/02/23 [place] [address] [address] Neurological Surgery 12/26/23 Audrey Waite PA-C 500 [place] [address] Physician Powder Cutting Operator Dermatology 02/28/24 Valery Veronica PA-C 698308 [address], [place] [address] Physician Powder Cutting Operator Dermatology 04/10/24 Herminia Hatch MD [facility]5 [place], [place] [id number] Assigned Rheumatology Provider 07/02/24 documented as of this encounter
--- OUTSIDE RECORDS SUMMARY | 2024-07-22 22:45 | XMS_ITS | Encounter Summary ---
Author Organization [place] Address [address] [place] [address] Care Team Providers Care Professor In Family Studies Name Role Phone Lita Oseguera Unavailable Unavailable Marija Edgar APRN REGIONAL GEODETIC ADVISOR Primary Care Provider + Marija Edgar APRN REGIONAL GEODETIC ADVISOR Unavailable [phone] Keisha Dotson MD Unavailable Diana Desir [facility] Unavailable Rain Galaviz PA-C Unavailable Tavia Wyatt MD Unavailable Erica Farrell APRN REGIONAL GEODETIC ADVISOR Unavailable Rich Barrett MD Unavailable Neil Kent MD Unavailable Roney Story DPM Unavailable [phone] Diana Desir [facility] Unavailable Jelena David OD Unavailable Livan Sharif MD Unavailable Livan Sharif MD Unavailable Catherine Cm MD Unavailable + Valery Veronica PA-C Unavailable Catherine Cm MD Unavailable + Johnny Murillo MD Unavailable [phone] Brea Quinn SMOKE JUMPER SUPERVISOR REGIONAL GEODETIC ADVISOR Unavailable [phone] Brea Quinn SMOKE JUMPER SUPERVISOR REGIONAL GEODETIC ADVISOR Unavailable [phone] Jose Francisco Johnson MD Unavailable Livan Sharif MD Unavailable Catherine Cm MD Unavailable + Sydnie Martinez RN Unavailable Unavailable Alfonso Renteria MD Unavailable Esha Grimm PA-C Primary Care Provider Cheng Todd PA-C Unavailable [phone] Radha Lomeli SMOKE JUMPER SUPERVISOR REGIONAL GEODETIC ADVISOR Unavailable Jelena David OD Unavailable Pao Joseph RN Unavailable Unavailable Esha Grimm PA-C Unavailable [phone] Valery Veronica PA-C Unavailable [phone] Rey Tay MD Unavailable Rocky Zepeda DO Unavailable Philip uDmont MD Unavailable [phone] Meredith Carrera PA-C Unavailable Neil Kent MD Unavailable Juan Pablo Emamnuel MD Unavailable Audrey Waite PA-C Unavailable [phone] Valery Veronica PA-C Unavailable Herminia Hatch MD Unavailable Encounter Details Date Type Department Care Team (Late st Contact Info) Description 07/07/2022 [facility] Medical Advice [facility] [address] [facility] [address] [place] [address] Livan Sharif MD [address] [place] [address] Social History Tobacco Use Types Packs/Day Years [...] How often do you attend mandaeism or sabianism serv ices? Never 09/22/2021 Do [...] points; Administer PHQ-9 if positive 1 05/13/2022 [facility] - Occupational Stress [...] a senior care (including now)? No 09/22/2021 [place] Depression Scale Answer Date Recorded [place] Depression Score 5 01/14/2021 Last EPDS Self Harm Result Not on file 01/14 Education Answer Date Recorded What is the highest level of school you have completed or the highest degree you have received? 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 SHOE CASER Gender Identity Female 03/02/2021 5:45 PM CDT Sexual Orientation Straight 02/28/2020 12 :51 AM CDT COVID-19 Exposure Response Date Recorded In the last 10 days, have yo u been in contact with someone who was confirmed or suspected to have Coronavirus/COVID-19? No / Unsure 06/25/2022 8:44 AM SHOE CASER documented as of this encounter Plan of Treatment Upcoming Encounters Date Type Department Care Team (Late st Contact Info) Description 10/23/2024 9:30 AM CDT Office Visit [facility] Neurology Clinics [address], [address] [place] [address] [place] [address] [place] [address] Johnny Penn MD 68[address] [facility] [place] [phone] 11/28/2024 7:45 AM CDT Virtual Visit [facility] Gastroenterology Clinic [address] 4th [place] [address] Meredith Carrera PA-C [address] [place] [address] 285415 documented as of this encounter Visit Diagnoses [...] as of this encounter Care Teams Professor In Family Studies Relationship Specialty Start Date End Date Marija Edgar APRN REGIONAL GEODETIC ADVISOR PCP - General Nurse Practitioner 04/30/20 04/14/23 Esha Grimm PA-C [address] [place] [phone] PCP - General Family Medicine 05/04/23 Lita Oseguera Personal Advocate & Liaison (PAL) 02/28/20 03/27/23 Marija Edgar APRN REGIONAL GEODETIC ADVISOR Assigned PCP 06/08/20 04/29/23 Keisha Dotson MD [address] [place], [place] 798055 Assigned Neuroscience Provider 06/04/20 04/01/23 Diana Desir [facility] 3033 [place], [place] 734946 Pharmacist Pharmacist 04/17/21 Rain Galaviz PA-C [address] [place] [address] [place] [address] Physician Mobility Architect Dermatology 04/28/21 Tavia Wyatt MD [address] [place] [address] [address] [place] [address] Dermatology 07/14/21 Erica Farrell APRN REGIONAL GEODETIC ADVISOR [address] [place] [address] Nurse Practitioner Cardiovascular Disease 09/09/21 Rich Barrett MD [address] [place] [address] 581635 Physician Ophthalmology 01/21/22 Neil Kent MD [address] [place] [address] Dermatology 02/24/22 [place] D[place] [address] [facility] [address] [place] [address] Assigned Musculoskeletal Provider 03/20/22 08/13/22 Diana Desir, [facility] 3033 [place] [address] Assigned MTM Pharmacist 04/07/22 Jelena David OD [address] [facility] [place] [address] Assigned Surgical Provider 05/08/22 10/08/22 Livan Sharif MD [address] [place] [address] Cardiovascular Disease 05/14/22 Livan Sharif MD [address], [facility] [address] [place] 599515 Assigned Heart and Vascular Provider 06/12/22 07/23/22 Catherine Cm MD [address] [address] [facility]00 [place] [address] Cardiovascular Disease 07/21/22 Valery Veronica, PA-C [address] [place] [address] 121015 Physician Mobility Architect Dermatology 07/21/22 Catherine Cm MD [address] [place] [id number] [place] [address] Assigned Heart and Vascular Provider 07/24/22 11/05/22 Johnny Murillo MD [address] [place] [address] [phone] Assigned Musculoskeletal Provider 08/14/22 10/08/22 Brea Quinn APRN REGIONAL GEODETIC ADVISOR [address] [place] [address] Nurse Practitioner Dermatology 09/21/22 Brea Quinn APRN REGIONAL GEODETIC ADVISOR [address] [place] [address] [place] [address] Assigned Surgical Provider 10/09/22 05/01/24 [place] [address] [place] [address] Assigned Musculoskeletal Provider 10/09/22 05/01/24 Livan Sharif MD [address], [facility] [address] [place] [address] Assigned Heart and Vascular Provider 11/06/22 11/12/22 Catherine Cm MD [address] [facility] [address] [place] [address] Assigned Heart and Vascular Provider 11/13/22 05/27/23 Sydnie Martinez RN Personal Advocate & Liaison (PAL) Family Medicine 03/28/23 07/31/23 Alfonso Renteria MD 5775 [facility] 200 [place] [address] Assigned Neuroscience Provider 04/02/23 Cheng Todd PA-C [address] [place] [address] Assigned PCP 04/30/23 07/15/23 Radha Lomeli, ARLENE REGIONAL GEODETIC ADVISOR [address] [place] [address] Assigned Heart and Vascular Provider 05/28/23 Jelena David OD [facility] [facility] [place] [address] Ophthalmology 06/15/23 Pao Joseph, VJ Personal Advocate & Liaison (PAL) Nurse 08/01/23 11/07/23 Esha Grimm PA-C [address] [place] [address] Assigned PCP 07/16/23 Valery Veronica PA-C [address] [place] [address] Physician Mobility Architect Dermatology 09/19/23 Rey Tay MD [address] [place] [address] MD Gastroenterology 09/20/23 Rocky Zepeda DO [address] [place] [address] 015135 Physician Gastroenterology 09/20/23 Philip Dumont MD [address] [place] [address] Physician Ophthalmology 09/22/23 Meredith Carrera PA-C [address] [place] [address] Assigned Gastroenterology Provider 11/01/23 Neil Kent MD [address] [address] Dermatology 11/02/23 [place] [address] [place] [phone] Neurological Surgery 12/26/23 Audrey Waite PA-C [address] [place] [address] 422155 Physician Mobility Architect Dermatology 02/28/24 Valery Veronica PA-C [address] [place] [address] Physician Mobility Architect Dermatology 04/10/24 Herminia Hatch MD [address] [place] [address] [phone] Assigned Rheumatology Provider 07/02/24 documented as of this encounter
--- OUTSIDE RECORDS SUMMARY | 2024-07-22 22:45 | XMS_ITS | Encounter Summary ---
Author Organization [facility] Address [address] [place] [address] Care Team Providers Care Towboat Captain Name Role Phone Lita Oseguera Unavailable Unavailable Marija Edgar APRN DEPENDENCY PROGRAM DIRECTOR Primary Care Provider + Marija Edgar APRN DEPENDENCY PROGRAM DIRECTOR Unavailable [phone] Keisha Dotson MD Unavailable [phone] Diana Desir [facility] Unavailable Rain Galaviz PA-C Unavailable Tavia Wyatt MD Unavailable [phone] Erica Farrell APRN DEPENDENCY PROGRAM DIRECTOR Unavailable Rich Barrett MD Unavailable [phone] Neil Kent MD Unavailable Diana Desir [facility] Unavailable Jelena David OD Unavailable Livan Sharif MD Unavailable Catherine Cm MD Unavailable + Valery Veronica PA-C Unavailable Catherine Cm MD Unavailable + Johnny Murillo MD Unavailable [phone] Brea Quinn PERFORATOR TYPIST DEPENDENCY PROGRAM DIRECTOR Unavailable [phone] Brea Quinn PERFORATOR TYPIST DEPENDENCY PROGRAM DIRECTOR Unavailable [phone] Jose Francisco Johnson MD Unavailable Livan Sharif MD Unavailable Catherine Cm MD Unavailable + Sydnie Martinez RN Unavailable Unavailable Alfonso Renteria MD Unavailable Esha Grimm PA-C Primary Care Provider Cheng Todd PA-C Unavailable [phone] Radha Lomeli PERFORATOR TYPIST DEPENDENCY PROGRAM DIRECTOR Unavailable Jelena David OD Unavailable [phone] Pao Joseph RN Unavailable Unavailable Esha Grimm PA-C Unavailable [phone] Valery Veronica PA-C Unavailable Rey Tay [...] Telephone [facility] [address], [address] [place] [address] Keisha Dotson MD [address] [place] [address] Call Back (Change of provider request) Social [...] How often do you attend cheondoism or confucianism serv ices? Never 09/22/2021 Do [...] Answer Date Recorded PHQ-2 Score 2 08/27/2022 [facility] of Occupat ional [facility] - Occupational Stress [...] in a fci (including now)? No 09/22/2021 [place] Depression Scale Answer Date Recorded [place] [...] PM CDT Legal Sex Female 4:13 AM HUMAN RESOURCES COORDINATOR Gender Identity Female 03/02/2021 5:45 PM [...] Aleyda Guan - 09/21/2022 10:47 AM CDT [facility] Call Center Phone Message May a detailed message be left on voicemail: yes Reason for Call: Other: Change of provider request, Pt would like to be seen with another provider. Please call Pt back at [phone] to scheduled or advise. Action Taken: Message routed to: [facility] [facility] Travel Screening: Not Applicable documented in this encounter Plan of Treatment Upcoming Encounters Date Type Department Care Team (Late st Contact Info) Description 10/23/2024 9:30 AM CDT Office Visit [facility] Neurology Clinics - [address], [address] [place] [address] [place] [address] [place] [address] Johnny Penn MD [address] [facility] [address] [place] [address] 11/28/2024 7:45 AM CDT Virtual Visit [facility] Gastroenterology Clinic [address] 4th [place] [phone] Meredith Carrera PA-C [address] [place] [address] documented as of this encounter Visit Diagnoses [...] Depression Total Score: 5 08/27/19 1:14 PM HUMAN RESOURCES COORDINATOR documented as of this encounter Care Teams Towboat Captain Relationship Specialty Start Date End Date Marija Edgra APRN DEPENDENCY PROGRAM DIRECTOR PCP - General Nurse Practitioner 04/30/20 04/14/23 Esha Grimm PA-C [address] [place] [phone] PCP - General Family Medicine 05/04/23 Lita Oseguera Personal Advocate & Liaison (PAL) 02/28/20 03/27/23 Marija Edgar APRN DEPENDENCY PROGRAM DIRECTOR Assigned PCP 06/08/20 04/29/23 Keisha Dotson MD [address] [place] [address] Assigned Neuroscience Provider 06/04/20 04/01/23 Diana Desir [facility] [address] [place] [address] Pharmacist Pharmacist 04/17/21 Rain Galaviz PA-C [address] [place] [address] [address] [place] [address] Physician Cloud Systems Administrator Dermatology 04/28/21 Tavia Wyatt MD [address] [place] [address] [address] [place] [address] Dermatology 07/14/21 Erica Farrell APRN DEPENDENCY PROGRAM DIRECTOR [address] [place] [address] Nurse Practitioner Cardiovascular Disease 09/09/21 Rich Barrett MD [address] 372[address] Physician Ophthalmology 01/21/22 Neil Kent MD [address] [place], [place] [address] Dermatology 02/24/22 Diana Desir, [facility] [address] [place] [address] Assigned MTM Pharmacist 04/07/22 Jelena David OD [address] [facility] [place] [address] Assigned Surgical Provider 05/08/22 10/08/22 Livan Sharif MD [id number] [place], [place] [address] Cardiovascular Disease 05/14/22 Catherine Cm MD [address] [place] [address] [place] 512335 Cardiovascular Disease 07/21/22 Valery Veronica, PA-C [address] [place] [address] 490665 Physician Cloud Systems Administrator Dermatology 07/21/22 Catherine Cm MD [address] [facility] [address] [place] [address] [place] [address] Assigned Heart and Vascular Provider 07/24/22 11/05/22 Johnny Murillo MD [address] [place] [address] 482144 Assigned Musculoskeletal Provider 08/14/22 10/08/22 Brea Quinn APRN DEPENDENCY PROGRAM DIRECTOR [address] [place] [address] Nurse Practitioner Dermatology 09/21/22 Brea Quinn APRN DEPENDENCY PROGRAM DIRECTOR [address] [place] [address] [place] [address] Assigned Surgical Provider 10/09/22 05/01/24 [place] [address] [place] [address] Assigned Musculoskeletal Provider 10/09/22 05/01/24 Livan Sharif MD [address], [facility] [address] [place] [address] Assigned Heart and Vascular Provider 11/06/22 11/12/22 Catherine Cm MD [address] [facility] [address] [place] [address] Assigned Heart and Vascular Provider 11/13/22 05/27/23 Sydnie Martinez RN Personal Advocate & Liaison (PAL) Family Medicine 03/28/23 07/31/23 Alfonso Renteria MD [address] [facility] 200 [place] [address] Assigned Neuroscience Provider 04/02/23 Cheng Todd PA-C [address] [place] [address] Assigned PCP 04/30/23 07/15/23 Radha Lomeli, PERFORATOR TYPIST DEPENDENCY PROGRAM DIRECTOR [address] [place] [address] Assigned Heart and Vascular Provider 05/28/23 Jelena David OD [address] [facility] [place] [address] Ophthalmology 06/15/23 Pao Joseph RN Personal Advocate & Liaison (PAL) Nurse 08/01/23 11/07/23 Esha Grimm PA-C [address] [place] [address] Assigned PCP 07/16/23 Valery Veronica PA-C [address] [place] [address] Physician Cloud Systems Administrator Dermatology 09/19/23 Rey Tay MD [address] [place] [address] MD Gastroenterology 09/20/23 Rocky Zepeda DO [address] [place] [address] Physician Gastroenterology 09/20/23 Philip Dumont MD [address] [place] [address] Physician Ophthalmology 09/22/23 Meredith Carrera PA-C [address] [place] [address] Assigned Gastroenterology Provider 11/01/23 Neil Kent MD [address] 246100 Dermatology 11/02/23 [place] [address] [place] [address] Neurological Surgery 12/26/23 Audrey Waite PA-C [address] [place] [address] Physician Cloud Systems Administrator Dermatology 02/28/24 Valery Veronica PA-C [address] [place] [address] Physician Cloud Systems Administrator Dermatology 04/10/24 Herminia Hatch MD [address] [place] [place] [address] [id number] Assigned Rheumatology Provider 07/02/24 documented as of this encounter
--- OUTSIDE RECORDS SUMMARY | 2024-07-22 22:45 | XMS_ITS | Encounter Summary ---
Author Organization [facility] Address [address] [place] [address] Care Team Providers Care Manager Validation Name Role Phone Lita Oseguera Unavailable Unavailable Marija Edgar APRN CHILD CUSTODY EVALUATOR Primary Care Provider + Marija Edgar APRN CHILD CUSTODY EVALUATOR Unavailable [phone] Keisha Dotson MD Unavailable Diana Desir [facility] Unavailable Rain Galaviz PA-C Unavailable Tavia Wyatt MD Unavailable [phone] Erica Farrell APRN CHILD CUSTODY EVALUATOR Unavailable Tavia Wyatt MD Unavailable [phone] Rich Barrett MD Unavailable [phone] Neil Kent MD Unavailable Roney Story DPM Unavailable Diana Desir [facility] Unavailable [phone] Jelena David OD Unavailable Galo Burrell MD Unavailable Unavailable Livan Sharif MD Unavailable Livan Sharif MD Unavailable Catherine Cm MD Unavailable + Valery Veronica PA-C Unavailable Catherine Cm MD Unavailable + Johnny Murillo MD Unavailable [phone] Brea Quinn CAR RUNNER CHILD CUSTODY EVALUATOR Unavailable [phone] Brea Quinn CAR RUNNER CHILD CUSTODY EVALUATOR Unavailable [phone] Jose Francisco Johnson MD Unavailable Livan Sharif MD Unavailable Catherine Cm MD Unavailable + ySdnie Martinez RN Unavailable Unavailable Alfonso Renteria MD Unavailable [phone] Esha Grimm PA-C Primary Care Provider Cheng Todd PA-C Unavailable Radha Lomeli CAR RUNNER CHILD CUSTODY EVALUATOR Unavailable Jelena David OD Unavailable Pao Joseph RN Unavailable Unavailable Esha Grimm PA-C Unavailable [phone] Valery Veronica PA-C Unavailable [phone] Rey Tay MD Unavailable Rocky Zepeda DO Unavailable Philip Dumont MD Unavailable Meredith Carrera PA-C Unavailable Neil Kent MD Unavailable Juan Pablo Emmanuel MD Unavailable Audrey Waite PA-C Unavailable Valery Veronica PA-C Unavailable Herminia Hatch MD [facility] Encounter Details Date Type Department Care Team (Late st Contact Info) Description 05/01/2022 MyC Medical Advice [address] [address] Thang Diana Stanislav, [facility] [address] [place] [address] Social History Tobacco Use Types Packs/Day Years [...] How often do you attend congregation or methodist serv ices? Never 09/22/2021 Do [...] Date Recorded PHQ-2 Score 2 12/18/2021 [facility] of Occupat ional [...] in a alf (including now)? No 09/22/2021 [place] Depression Scale Answer Date Recorded [place] [...] PM CDT Legal Sex Female 4:13 AM PUTTY REMOVER Gender Identity Female 03/02/2021 5:45 PM CDT [...] Office Visit [facility] Neurology Clinics [address], [address] [place] [address] [place] [address] [place] [address] Johnny Penn MD [address] [facility] [place], [place] [address] 11/28/2024 7:45 AM CDT Virtual Visit [facility] Gastroenterology Clinic [address] 4th [place] [address] Meredith Carrera PA-C [address] [place] [address] 864415 documented as of this encounter Visit Diagnoses Not on filedocumented in this encounter Additional Health Concerns Infection Onset Date Last Indicated Resolved Time Rule Out COVID-19 05/17/2022 05/17/2022 05/17/2022 10:20 PM PUTTY REMOVER Rule Out COVID-19 06/09/2022 06/09/2022 06/09/2022 9:35 AM PUTTY REMOVER COVID-19 06/09/2022 06/09/2022 06/30/2022 11:4 1 PM PUTTY REMOVER Rule Out COVID-19 11/10/2022 11/10/2022 11/11/2022 12:17 PM CDT Rule Out COVID-19 03/07/2023 03/07/2023 03/07/2023 1:20 PM CDT Rule Out COVID-19 12/26/2023 12/26/2023 12/26/2023 9:50 AM CDT Rule Out COVID-19 04/09/2024 04/09/2024 04/10/2024 6:48 PM CDT Assessment Noted Time PHQ-9 Depression Total Score: 2 12/19/19 2:50 PM CDT documented as of this encounter Care Teams Manager Validation Relationship Specialty Start Date End Date Marija Edgar APRN CHILD CUSTODY EVALUATOR PCP - General Nurse Practitioner 04/30/20 04/14/23 Esha Grimm PA-C [address] [place] [phone] PCP - General Family Medicine 05/04/23 Lita Oseguera Personal Advocate & Liaison (PAL) 02/28/20 03/27/23 Marija Edgar APRN CHILD CUSTODY EVALUATOR Assigned PCP 06/08/20 04/29/23 Keisha Dotson MD [address] [place] [address] Assigned Neuroscience Provider 06/04/20 04/01/23 Diana Desir, [facility] [address] [place] [address] Pharmacist Pharmacist 04/17/21 Rain Galaviz PA-C [address] [place] [address] [address] [place] [address] Physician Department Helper Dermatology 04/28/21 Tavia Wyatt MD [address] [place] [address] [address] [place] [address] Dermatology 07/14/21 Erica Farrell APRN CHILD CUSTODY EVALUATOR [address] [facility] [address] [place], [place] 344[address] Nurse Practitioner Cardiovascular Disease 09/09/21 Tavia Wyatt MD [address] [place] [address] Assigned Surgical Provider 11/29/21 05/07/22 Rich Barrett MD [address] [facility] [address] [place], [place] [address] Physician Ophthalmology 01/21/22 Neil Kent MD 500 [place], [place] 602395 Dermatology 02/24/22 Roney Story DPM [address] [facility] [address] [place] [address] Assigned Musculoskeletal Provider 03/20/22 08/13/22 Diana Desir, [facility] [address] [place] [address] Assigned MTM Pharmacist 04/07/22 Jelena David OD [address] [facility] [place] [address] Assigned Surgical Provider 05/08/22 10/08/22 Galo Burrell MD Assigned Heart and Vascular Provider 04/17/22 06/11/22 Livan Sharif MD [address] [place] 151185 Cardiovascular Disease 05/14/22 Livan Sharif MD [address] [place] [address] Assigned Heart and Vascular Provider 06/12/22 07/23/22 Catherine Cm MD [address] [facility] [address] [place] 135485 Cardiovascular Disease 07/21/22 Valery Veronica, PA-C [address] [place], [place] 858245 Physician Department Helper Dermatology 07/21/22 Catherine Cm MD [address] [place] [address]45 Assigned Heart and Vascular Provider 07/24/22 11/05/22 Johnny Murillo MD [facility] [address] [address] Assigned Musculoskeletal Provider 08/14/22 10/08/22 Brea Quinn APRN CHILD CUSTODY EVALUATOR 500 [place] [address] Nurse Practitioner Dermatology 09/21/22 Brea Quinn APRN CHILD CUSTODY EVALUATOR [address]01 [place] [address] Assigned Surgical Provider 10/09/22 05/01/24 [place] [address] [address] Assigned Musculoskeletal Provider 10/09/22 05/01/24 Livan Sharif MD [address], [facility] [address] [place] [address] Assigned Heart and Vascular Provider 11/06/22 11/12/22 Catherine Cm MD [address] [facility] [address] [place] [address] Assigned Heart and Vascular Provider 11/13/22 05/27/23 Sydnie Martinez RN Personal Advocate & Liaison (PAL) Family Medicine 03/28/23 07/31/23 Alfonso Renteria MD [address] [facility] 200 [place] [address] Assigned Neuroscience Provider 04/02/23 Cheng Todd PA-C [address] [place] [address] Assigned PCP 04/30/23 07/15/23 Radha Lomeli APRN CHILD CUSTODY EVALUATOR [address] [facility] [address] [place] [address] Assigned Heart and Vascular Provider 05/28/23 Jelena David OD [address] [facility] [place] [address] MD Ophthalmology 06/15/23 Pao Joseph, VJ Personal Advocate & Liaison (PAL) Nurse 08/01/23 11/07/23 Esha Grimm PA-C [address] [place] [phone] Assigned PCP 07/16/23 Valery Veronica PA-C [address] [place] [address] Physician Department Helper Dermatology 09/19/23 Rey Tay MD [address] [place] [address] 248715 Gastroenterology 09/20/23 Rocky Zepeda DO [address] [place] [address] 839125 Physician Gastroenterology 09/20/23 Philip Dumont MD [address] [place] [address] 734225 Physician Ophthalmology 09/22/23 Meredith Carrera PA-C [address] [place] [address] 530335 Assigned Gastroenterology Provider 11/01/23 Neil Kent MD [address] [address] Dermatology 11/02/23 [place] [address] 474987 Neurological Surgery 12/26/23 Audrey Waite PA-C 500 [place] [address] Physician Department Helper Dermatology 02/28/24 Valery Veronica PA-C 446652 [address] [place] [address] Physician Department Helper Dermatology 04/10/24 Herminia Hatch MD [facility]5 [place], [place] 9[address]84125 Assigned Rheumatology Provider 07/02/24 documented as of this encounter
--- OUTSIDE RECORDS SUMMARY | 2024-07-22 22:45 | XMS_ITS | Encounter Summary ---
Author Organization [place] Address [address] [place] [address] Care Team Providers Care Information Systems Administrator Name Role Phone Lita Oseguera Unavailable Unavailable Marija Edgar APRN PHOTORESIST PRINTER Primary Care Provider + Marija Edgar APRN PHOTORESIST PRINTER Unavailable Keisha Dotson MD Unavailable Diana Desir [facility] Unavailable [phone] Rain Galaviz PA-C Unavailable [phone] Tavia Wyatt MD Unavailable [phone] Erica Farrell APRN PHOTORESIST PRINTER Unavailable Rich Barrett MD Unavailable Neil Kent MD Unavailable Roney Story DPM Unavailable Diana Desir [facility] Unavailable Jelena David OD Unavailable Galo Burrell MD Unavailable Unavailable Livan Sharif MD Unavailable Livan Sharif MD Unavailable Catherine Cm MD Unavailable + Valery Veronica PA-C Unavailable Catherine Cm MD Unavailable + Johnny Murillo MD Unavailable [phone] Brea Quinn RECORDS MANAGEMENT SPECIALIST PHOTORESIST PRINTER Unavailable [phone] Brea Quinn RECORDS MANAGEMENT SPECIALIST PHOTORESIST PRINTER Unavailable [phone] Jose Francisco Johnson MD Unavailable Livan Sharif MD Unavailable Catherine Cm MD Unavailable + Sydnie Martinez RN Unavailable Unavailable Alfonso Renteria MD Unavailable Esha Grimm PA-C Primary Care Provider Cheng Todd PA-C Unavailable [phone] Radha Lomeli RECORDS MANAGEMENT SPECIALIST PHOTORESIST PRINTER Unavailable Frankie Jelena Garcia OD Unavailable Pao Joseph RN Unavailable Unavailable Esha Grimm PA-C Unavailable [phone] JeremíasValery damon PA-C Unavailable Rey Tay MD Unavailable Rocky Zepeda DO Unavailable Philip Dumont MD Unavailable [phone] Meredith Carrera PA-C Unavailable Neil Kent MD Unavailable Juan Pablo Emmanuel MD Unavailable Audrey Waite PA-C Unavailable Valery Veronica PA-C Unavailable Herminia Hatch MD Unavailable Encounter Details Date Type Department Care Team (Late st Contact Info) Description 05/11/2022 MyC Medical Advice [address] [address] Diana Desir, [facility] [address] [place] [address] Social History Tobacco Use Types Packs/Day Years [...] How often do you attend mandaen or buddhist serv ices? Never 09/22/2021 Do you belong [...] points; Administer PHQ-9 if positive 1 05/13/2022 [facility] [...] in a longterm (including now)? No 09/22/2021 [place] Depression Scale Answer Date Recorded [...] PM CDT Legal Sex Female 4:13 AM ANTIQUER Gender Identity Female 03/02/2021 5:45 PM CDT [...] CDT Office Visit [facility] Neurology [address], [address] [place] [address] [place] [address] [place], [place] [address] Johnny Penn MD [address] [facility] [place], [place] [address] 11/28/2024 7:45 AM CDT Virtual Visit [facility] G[facility]ology [facility] [address] 4th [place] [address] Meredith Carrera PA-C [address] [place] [address] 916025 documented as of this encounter Visit Diagnoses Not on filedocumented in this encounter Additional Health Concerns Infection Onset Date Last Indicated Resolved Time Rule Out COVID-19 05/17/2022 05/17/2022 05/17/2022 10:20 PM ANTIQUER Rule Out COVID-19 06/09/2022 06/09/2022 06/09/2022 9:35 AM ANTIQUER COVID-19 06/09/2022 06/09/2022 06/30/2022 11:4 1 PM ANTIQUER Rule Out COVID-19 11/10/2022 11/10/2022 11/11/2022 12:17 PM CDT Rule Out COVID-19 03/07/2023 03/07/2023 03/07/2023 1:20 PM CDT Rule Out COVID-19 12/26/2023 12/26/2023 12/26/2023 9:50 AM CDT Rule Out COVID-19 04/09/2024 04/09/2024 04/10/2024 6:48 PM CDT Assessment Noted Time PHQ-9 Depression Total Score: 3 05/13/20 8:49 PM CDT documented as of this encounter Care Teams Information Systems Administrator Relationship Specialty Start Date End Date Marija Edgar APRN PHOTORESIST PRINTER PCP - General Nurse Practitioner 04/30/20 04/14/23 Esha Grimm PA-C [address] [place] [phone] PCP - General Family Medicine 05/04/23 Lita Oseguera Personal Advocate & Liaison (PAL) 02/28/20 03/27/23 Marija Edgar APRN PHOTORESIST PRINTER Assigned PCP 06/08/20 04/29/23 Keisha Dotson MD [address] [place] [address] Assigned Neuroscience Provider 06/04/20 04/01/23 Diana Desir, [facility] [address] [place] [address] Pharmacist Pharmacist 04/17/21 Rain Galaviz PA-C [address] [place] [address] [address] [place] [address] Physician Canvas Goods Maker Dermatology 04/28/21 Tavia Wyatt MD [address] [place] [address] [address] [place] [id number] Dermatology 07/14/21 Erica Farrell APRN PHOTORESIST PRINTER [address] [place], [place] [address] Nurse Practitioner Cardiovascular Disease 09/09/21 Rich Barrett MD [address] [facility] [address] [place], [place] [address] Physician Ophthalmology 01/21/22 Neil Kent MD 500 [place], [place] 651165 Dermatology 02/24/22 Roney Story DPM [address] [facility] [address] [place] [address] Assigned Musculoskeletal Provider 03/20/22 08/13/22 Diana Desir, [facility] [address] [place] [address] Assigned MTM Pharmacist 04/07/22 [place] David OD [address] [facility] [place] [address] Assigned Surgical Provider 05/08/22 10/08/22 Galo Burrell MD Assigned Heart and Vascular Provider 04/17/22 06/11/22 Livan Sharif MD [address], [facility] [address] [place], [place] [address] Cardiovascular Disease 05/14/22 Livan Sharif MD [address], [facility] [address] [place] [address] Assigned Heart and Vascular Provider 06/12/22 07/23/22 Catherine Cm MD [address] [facility] [place] [place] [address] Cardiovascular Disease 07/21/22 Valery Veronica, PA-C [address] [place] [address] Physician Canvas Goods Maker Dermatology 07/21/22 Catherine Cm MD [address] [facility] [place] [place] [address] Assigned Heart and Vascular Provider 07/24/22 11/05/22 Johnny Murillo MD [address] [place] [address] Assigned Musculoskeletal Provider 08/14/22 10/08/22 Brea Quinn APRN PHOTORESIST PRINTER [address] [place] [address] Nurse Practitioner Dermatology 09/21/22 Brea Quinn APRN PHOTORESIST PRINTER 64[address] [facility] [place] [address] Assigned Surgical Provider 10/09/22 05/01/24 [place] [address] [facility] 300 [place] [address] Assigned Musculoskeletal Provider 10/09/22 05/01/24 Livan Sharif MD [address] [facility] [address] [place] [address] Assigned Heart and Vascular Provider 11/06/22 11/12/22 Catherine Cm MD [address] [facility] [place] 820035 Assigned Heart and Vascular Provider 11/13/22 05/27/23 Sydnie Martinez, RN Personal Advocate & Liaison (PAL) Family Medicine 03/28/23 07/31/23 Alfonso Renteria MD 5775 [facility] 200 [place] [address] Assigned Neuroscience Provider 04/02/23 Cheng Todd PA-C [address] [place] [address] Assigned PCP 04/30/23 07/15/23 Radha Lomeli APRN PHOTORESIST PRINTER [address] [place] [address] Assigned Heart and Vascular Provider 05/28/23 Jelena David OD [address] [facility] [place] [address] MD Ophthalmology 06/15/23 Pao Joseph, RN Personal Advocate & Liaison (PAL) Nurse 08/01/23 11/07/23 Esha Grimm PA-C [address] [place] [address] Assigned PCP 07/16/23 Valery Veronica PA-C [address] [place] [address] 228695 Physician Canvas Goods Maker Dermatology 09/19/23 Rey Tay MD [address] [place] [address] Gastroenterology 09/20/23 Rocky Zepeda DO [address] [place] [address] 771475 Physician Gastroenterology 09/20/23 Philip Dumont MD [address] [place] [address] Physician Ophthalmology 09/22/23 Meredith Carrera PA-C [address] [place] [address] 358765 Assigned Gastroenterology Provider 11/01/23 Neil Kent MD [address] [phone] Dermatology 11/02/23 [place] [address] 797387 Neurological Surgery 12/26/23 Audrey Waite PA-C 500 [place] [address] Physician Canvas Goods Maker Dermatology 02/28/24 Valery Veronica PA-C [address] [place] [address] Physician Canvas Goods Maker Dermatology 04/10/24 Herminia Hatch MD [facility]5 [place], [place] [id number] Assigned Rheumatology Provider 07/02/24 documented as of this encounter
[2024-07-22 22:46] LABS: Anion Gap 7 mEq/L (7-15); Carbon Dioxide* 26 mmol/L (20-32); Creatinine* 1.1 mg/dL (0.5-1.5); Est. Creatinine Clearance* 73.83; Estimated Glomerular Filt Rate 72 ml/min
--- OUTSIDE RECORDS SUMMARY | 2024-07-22 22:46 | XMS_ITS | Encounter Summary ---
Author Organization [place] Address [address] [place] [address] Care Team Providers Care Cook Italian Style Food Name Role Phone Lita Oseguera Unavailable Unavailable Marija Edgar APRN ELECTRON MICROSCOPIST Primary Care Provider + Marija Edgar APRN ELECTRON MICROSCOPIST Unavailable [phone] Keisha Dotson MD Unavailable Diana Desir [facility] Unavailable Rain Galaviz PA-C Unavailable Tavia Wyatt MD Unavailable [phone] Erica Farrell APRN ELECTRON MICROSCOPIST Unavailable Tavia Wyatt MD Unavailable [phone] Rich Barrett MD Unavailable [phone] Neil Kent MD Unavailable Roney Story DPM Unavailable Erica Farrell APRN ELECTRON MICROSCOPIST Unavailable Diana Desir [facility] Unavailable [phone] Jelena David OD Unavailable Galo Burrell MD Unavailable Unavailable Livan Sharif MD Unavailable Livan Sharif MD Unavailable + Isfaby, Catherine Marques MD Unavailable + Valery Veronica PA-C Unavailable [phone] IsraynaCatherine boothe MD Unavailable + Johnny Murillo MD Unavailable [phone] Brea Quinn IRON WORKER FOREMAN ELECTRON MICROSCOPIST Unavailable [phone] Brea Quinn IRON WORKER FOREMAN ELECTRON MICROSCOPIST Unavailable [phone] Jose Francisco Johnson MD Unavailable Livan Sharif MD Unavailable + Isfaby, Catherine Marques MD Unavailable + Sydnie Martinez RN Unavailable Unavailable Alfonso Renteria MD Unavailable [phone] Esha Grimm PA-C Primary Care Provider Cheng Todd PA-C Unavailable Radha Lomeli IRON WORKER FOREMAN ELECTRON MICROSCOPIST Unavailable [phone] Jelena David SONJA Unavailable Pao Joseph RN Unavailable Unavailable Esha Grimm PA-C Unavailable [phone] Valery Veronica PA-C Unavailable [phone] Rey Tay MD Unavailable Rocky Zepeda DO Unavailable Philip Dumont MD Unavailable [phone] Meredith Carrera PA-C Unavailable [phone] Neil Kent MD Unavailable Juan Pablo Emmanuel MD Unavailable Audrey Waite PA-C Unavailable [phone] Valery Veronica PA-C Unavailable [phone] Herminia Hatch MD Unavailable Encounter Details Date Type Department Care Team (Late st Contact Info) Description 04/07/2022 MyC Medical Advice [address] [address] Diana Desir, [facility] [address] [place] [address] Social History Tobacco Use Types Packs/Day Years [...] How often do you attend orthodoxy or evangelical serv ices? Never 09/22/2021 Do [...] Answer Date Recorded PHQ-2 Score 2 12/18/2021 [facility] - [...] a care home (including now)? No 09/22/2021 [place] Depression Scale Answer Date Recorded [place] Depression Score 5 01/14/2021 Last EPDS Self Harm Result Not on file 01/14 Education Answer Date Recorded What is the highest level of school you have completed or the highest degree you have received? 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 FERMENTING CELLAR DROPPER Gender Identity Female 03/02/2021 5:45 PM CDT [...] Office Visit [facility] Neurology [address], [address] [place] [address] [place] [address] [place], [place] [address] Johnny Penn MD [address]60 [place], [place] 9[address] 11/28/2024 7:45 AM CDT Virtual Visit [facility] Gastroenterology Clinic [address] [place] [address] Meredith Carrera PA-C [address] [place] [address] 667425 documented as of this encounter Visit Diagnoses Not on filedocumented in this encounter Additional Health Concerns Infection Onset Date Last Indicated Resolved Time Rule Out COVID-19 04/26/2022 04/26/2022 04/26/2022 6:47 AM CDT Rule Out COVID-19 05/17/2022 05/17/2022 05/17/2022 10:20 PM FERMENTING CELLAR DROPPER Rule Out COVID-19 06/09/2022 06/09/2022 06/09/2022 9:35 AM FERMENTING CELLAR DROPPER COVID-19 06/09/2022 06/09/2022 06/30/2022 11:4 1 PM FERMENTING CELLAR DROPPER Rule Out COVID-19 11/10/2022 11/10/2022 11/11/2022 12:17 PM CDT Rule Out COVID-19 03/07/2023 03/07/2023 03/07/2023 1:20 PM CDT Rule Out COVID-19 12/26/2023 12/26/2023 12/26/2023 9:50 AM CDT Rule Out COVID-19 04/09/2024 04/09/2024 04/10/2024 6:48 PM CDT Assessment Noted Time PHQ-9 Depression Total Score: 2 12/19/19 22 2:50 PM CDT documented as of this encounter Care Teams Cook Italian Style Food Relationship Specialty Start Date End Date Marija Edgar APRN ELECTRON MICROSCOPIST PCP - General Nurse Practitioner 04/30/20 04/14/23 Esha Grimm PA-C [address] [place] [address] PCP - General Family Medicine 05/04/23 Lita Oseguera Personal Advocate & Liaison (PAL) 02/28/20 03/27/23 Marija Edgar APRN ELECTRON MICROSCOPIST Assigned PCP 06/08/20 04/29/23 Keisha Dotson MD 9 [place] [address] Assigned Neuroscience Provider 06/04/20 04/01/23 Diana Desir, [facility] [address] [place] [address] Pharmacist Pharmacist 04/17/21 Rain Galaviz PA-C [address] [place] [address] [address] [place] [address] Physician Lance Crewmember/Mlrs Sergeant Dermatology 04/28/21 Tavia Wyatt MD [address] [place] [address] [address] [place] [address] Dermatology 07/14/21 Erica Farrell APRN ELECTRON MICROSCOPIST 6405 [facility] [address] [place] [address] Nurse Practitioner Cardiovascular Disease 09/09/21 Tavia Wyatt MD [address] [place] [address] Assigned Surgical Provider 11/29/21 05/07/22 Rich Barrett MD [address] 369485 Physician Ophthalmology 01/21/22 Neil Kent MD 500 [place] [address] Dermatology 02/24/22 Roney Story DPM [address] [facility] 300 [place] [address] Assigned Musculoskeletal Provider 03/20/22 08/13/22 Erica Farrell APRN ELECTRON MICROSCOPIST 1700 [place] [address] Assigned Heart and Vascular Provider 04/03/22 04/16/22 [facility] [address] [place] [address] Assigned MTM Pharmacist 04/07/22 Jelena David OD [address] [facility] [place] [address] Assigned Surgical Provider 05/08/22 10/08/22 Galo Burrell MD Assigned Heart and Vascular Provider 04/17/22 06/11/22 Livan Sharif MD [address] [facility] [address] [place], [place] 9[address] Cardiovascular Disease 05/14/22 Livan Sharif MD [address] [facility] [address] [place] 9[address] Assigned Heart and Vascular Provider 06/12/22 07/23/22 Catherine Cm MD [address] [place] 9[address]275 Cardiovascular Disease 07/21/22 Valery Veronica, PAUcheC 909 [place], [place] 4939[address] Physician Lance Crewmember/Mlrs Sergeant Dermatology 07/21/22 Catherine Cm MD [address] [place] [id number] [place] [address] Assigned Heart and Vascular Provider 07/24/22 11/05/22 Johnny Murillo MD [address] [place] [address] Assigned Musculoskeletal Provider 08/14/22 10/08/22 Brea Quinn APRN ELECTRON MICROSCOPIST [address] [place] [address] 806205 Nurse Practitioner Dermatology 09/21/22 Brea Quinn APRN ELECTRON MICROSCOPIST [address] [place] [address] Assigned Surgical Provider 10/09/22 05/01/24 [place] [address] [address] Assigned Musculoskeletal Provider 10/09/22 05/01/24 Livan Sharif MD [address] [place] 2055000 [place] [address] Assigned Heart and Vascular Provider 11/06/22 11/12/22 Catherine Cm MD 6[address] [facility]00 [place] 723635 Assigned Heart and Vascular Provider 11/13/22 05/27/23 Sydnie Martinez, RN Personal Advocate & Liaison (PAL) Family Medicine 03/28/23 07/31/23 Alfonso Renteria MD 5775 [facility] 200 [place] [address] Assigned Neuroscience Provider 04/02/23 Cheng Todd PA-C [address] [place] [address] [phone] Assigned PCP 04/30/23 07/15/23 Radha Lomeli APRN ELECTRON MICROSCOPIST [address] [place] 0618000 [place] [address] Assigned Heart and Vascular Provider 05/28/23 Jelena David OD [address] [facility] [address] Ophthalmology 06/15/23 Pao Joseph RN Personal Advocate & Liaison (PAL) Nurse 08/01/23 11/07/23 Esha Grimm PA-C [address] [place] [address] Assigned PCP 07/16/23 Valery Veronica PA-C [address] [place] [address] Physician Lance Crewmember/Mlrs Sergeant Dermatology 09/19/23 Rey Tay MD [address] [place] [address] 493495 Gastroenterology 09/20/23 Rocky Zepeda DO [address] [place] [address] 887193 Physician Gastroenterology 09/20/23 Philip Dumont MD 6 [place] [address] Physician Ophthalmology 09/22/23 Meredith Carrera PA-C [address] [place] [address] Assigned Gastroenterology Provider 11/01/23 Neil Kent MD [address] [place] [address] 245460 MD Dermatology 11/02/23 [place] [address] 386077 Neurological Surgery 12/26/23 Audrey Waite PA-C [address] [place] [address] Physician Lance Crewmember/Mlrs Sergeant Dermatology 02/28/24 Valery Veronica PA-C [address] [place] [address] Physician Lance Crewmember/Mlrs Sergeant Dermatology 04/10/24 Herminia Hatch MD [address] [place], [place] 64015[address] Assigned Rheumatology Provider 07/02/24 documented as of this encounter
--- OUTSIDE RECORDS SUMMARY | 2024-07-22 22:46 | XMS_ITS | Encounter Summary ---
Author Organization [facility] Address [address] [place] [address] Care Team Providers Care Director [employer] Name Role Phone Lita Oseguera Unavailable Unavailable Marija Edgar APRN SOW FARM BARN TECHNICIAN Primary Care Provider + Marija Edgar APRN SOW FARM BARN TECHNICIAN Unavailable Mynor Broussard MD Unavailable [phone] Keisha Dotson MD Unavailable Galo Burrell MD Unavailable Unavailable Diana Desir [facility] Unavailable [phone] Rain Galaviz PA-C Unavailable Summer Lara MD Unavailable Tavia Wyatt MD Unavailable Johnny Murillo MD Unavailable [phone] Erica Farrell APRN SOW FARM BARN TECHNICIAN Unavailable Teresita Bean [facility] Unavailable [phone] Tavia Wyatt MD Unavailable Diana Desir [facility] Unavailable Rich Barrett MD Unavailable [phone] Neil Kent MD Unavailable Roney Story DPM Unavailable Erica Farrell SEISMIC ENGINEER SOW FARM BARN TECHNICIAN Unavailable Thang Diana Stanislav [facility] Unavailable Jelena David OD Unavailable Galo Burrell MD Unavailable Unavailable Livan Sharif MD Unavailable + Livan Sharif MD Unavailable + Catherine Cm MD Unavailable + Valery Veronica PA-C Unavailable [phone] Catherine Cm MD Unavailable + Johnny Murillo MD Unavailable [phone] Brea Quinn SEISMIC ENGINEER SOW FARM BARN TECHNICIAN Unavailable [phone] Brea Quinn SEISMIC ENGINEER SOW FARM BARN TECHNICIAN Unavailable [phone] Jose Francisco Johnson MD Unavailable Livan Sharif MD Unavailable + IsCatherine hobbs MD Unavailable + Sydnie Martinez RN Unavailable Unavailable Alfonso Renteria MD Unavailable Esha Grimm-C Primary Care Provider Cheng Todd PA-C Unavailable Radha Lomeli SEISMIC ENGINEER SOW FARM BARN TECHNICIAN Unavailable [phone] Jelena David OD Unavailable [phone] Pao Joseph RN Unavailable Unavailable Esha Grimm-C Unavailable JeremíasValery damon PA-C Unavailable [phone] Rey Tay MD Unavailable Rocky Zepeda DO Unavailable Philip Dumont MD Unavailable [phone] Meredith CarreraC Unavailable [phone] Neil Kent MD Unavailable Juan Pablo Emmanuel MD Unavailable Audrey WaiteC Unavailable [phone] Valery VeronciaC Unavailable [phone] Herminia Hatch MD Unavailable Encounter Details Date Type Department Care Team (Late st Contact Info) Description 09/24/2021 MyC Medical Advice [facility] [address] [facility] [address] [place] [address] [facility] [address] [place] [place] [address] Social History Tobacco Use Types Packs/Day [...] often do you attend latter day or caodaism serv ices? Never 09/22/2021 Do [...] Answer Date Recorded PHQ-2 Score 2 09/22/2021 [facility] [place] of Occupat ional Health - Occupational Stress [...] in a retirement (including now)? No 09/22/2021 Bethany Depression Scale Answer Date Recorded Bethany Depression Score 5 01/14/2021 Last EPDS Self Harm Result Not on file 01/14 Education Answer Date Recorded What is the highest level of school you have completed or the highest degree you have received? 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 EARLY CHILDHOOD WORKER Gender Identity Female 03/02/2021 5:45 PM [...] Visit [facility] Neurology Clinics [address], [address] [place] [address] [place] [address] [address] [place] [address] Johnny Penn MD [address] [place] [address] 11/28/2024 7:45 AM CDT Virtual Visit [facility]ology [facility] [place] [address] 4th [place] [phone] Meredith Carrera PA-C [address] [place] [address] documented as of this encounter Visit Diagnoses Not on filedocumented in this encounter Additional Health Concerns Infection Onset Date Last Indicated Resolved Time Rule Out COVID-19 12/18/2021 12/18/2021 12/19/2021 11:34 AM CDT Rule Out COVID-19 02/24/2022 02/24/2022 02/25/2022 1:08 PM CDT Rule Out COVID-19 04/26/2022 04/26/2022 04/26/2022 6:47 AM CDT Rule Out COVID-19 05/17/2022 05/17/2022 05/17/2022 10:20 PM EARLY CHILDHOOD WORKER Rule Out COVID-19 06/09/2022 06/09/2022 06/09/2022 9:35 AM EARLY CHILDHOOD WORKER COVID-19 06/09/2022 06/09/2022 06/30/2022 11:4 1 PM EARLY CHILDHOOD WORKER Rule Out COVID-19 11/10/2022 11/10/2022 11/11/2022 12:17 PM CDT Rule Out COVID-19 03/07/2023 03/07/2023 03/07/2023 1:20 PM CDT Rule Out COVID-19 12/26/2023 12/26/2023 12/26/2023 9:50 AM CDT Rule Out COVID-19 04/09/2024 04/09/2024 04/10/2024 6:48 PM CDT Assessment Noted Time PHQ-9 Depression Total Score: 2 04/02/20 21 10:19 AM CDT documented as of this encounter Care Teams Director [employer] Relationship Specialty Start Date End Date Marija Edgar APRN SOW FARM BARN TECHNICIAN PCP - General Nurse Practitioner 04/30/20 04/14/23 Esha Grimm PA-C [address] [place] [address] PCP - General Family Medicine 05/04/23 Lita Oseguera Personal Advocate & Liaison (PAL) 02/28/20 03/27/23 Marija Edgar APRN SOW FARM BARN TECHNICIAN Assigned PCP 06/08/20 04/29/23 Mynor Broussard MD [address] [facility] 500 [place] [address] Assigned Surgical Provider 06/01/20 11/28/21 Keisha Dotson MD 909 [place] [address] Assigned Neuroscience Provider 06/04/20 04/01/23 Galo Burrell MD Assigned Heart and Vascular Provider 10/05/20 04/02/22 Diana Desir, [facility] [address] [place] [address] Pharmacist Pharmacist 04/17/21 Rain Galaviz PA-C [address] [facility] [place] [address] Physician Medical Delivery Technician Dermatology 04/28/21 Summer Lara MD [address] [place] [address] Assigned OBGYN Provider 05/31/21 2 Tavia Wyatt MD [address] [place], [place] [address] Dermatology 07/14/21 Johnny Murillo MD [address] [place] [address] Assigned Musculoskeletal Provider 08/30/21 03/17/22 Erica Farrell APRN SOW FARM BARN TECHNICIAN [address] [place] [address] Nurse Practitioner Cardiovascular Disease 09/09/21 Teresita Bean, [facility] [address] [place] [phone] Pharmacist Pharmacist 09/24/21 09/29/21 Tavia Wyatt MD [address] [place] [address] Assigned Surgical Provider 11/29/21 05/07/22 Diana Desir, [facility] [address] [facility] [address] Assigned MTM Pharmacist 01/02/22 Rich Barrett MD [address] [facility] [address] [place], [place] [address] Physician Ophthalmology 01/21/22 Neil Kent MD 500 [place] [address] Dermatology 02/24/22 Roney Story DPM [address] [facility] [address] [place], [place] [address] Assigned Musculoskeletal Provider 03/20/22 08/13/22 Erica Farrell APRN SOW FARM BARN TECHNICIAN 1700 [place] [address] Assigned Heart and Vascular Provider 04/03/22 04/16/22 Diana Desir, [facility] 3033 [place], [place] [address] Assigned MTM Pharmacist 04/07/22 Jelena David OD [address] [place] [address] Assigned Surgical Provider 05/08/22 10/08/22 Galo Burrell MD Assigned Heart and Vascular Provider 04/17/22 06/11/22 Livan Sharif MD [address] [facility]00 [place] [address] Cardiovascular Disease 05/14/22 Livan Sharif MD [address] [facility] [place] [address] Assigned Heart and Vascular Provider 06/12/22 07/23/22 Catherine Cm MD [address] [facility] [place], [place] [address] Cardiovascular Disease 07/21/22 Valery Veronica, PA-C [address] [place] [address] Physician Medical Delivery Technician Dermatology 07/21/22 Catherine Cm MD [address] [place] [address] [place] [address] Assigned Heart and Vascular Provider 07/24/22 11/05/22 Johnny Murillo MD [address] [address] Assigned Musculoskeletal Provider 08/14/22 10/08/22 Brea Quinn APRN SOW FARM BARN TECHNICIAN [address] [place] [address]885 Nurse Practitioner Dermatology 09/21/22 Brea Quinn APRN SOW FARM BARN TECHNICIAN 64[address] [place], [place] [address] Assigned Surgical Provider 10/09/22 05/01/24 [place] [address] [address] Assigned Musculoskeletal Provider 10/09/22 05/01/24 Livan Sharif MD [address] [facility] [place] [address] Assigned Heart and Vascular Provider 11/06/22 11/12/22 Catherine Cm MD [address] [facility] [place] [address] Assigned Heart and Vascular Provider 11/13/22 05/27/23 Sydnie Martinez RN Personal Advocate & Liaison (PAL) Family Medicine 03/28/23 07/31/23 Alfonso Renteria MD [address] [facility] [address] 200 [place] [address] Assigned Neuroscience Provider 04/02/23 Cheng Todd PA-C [address] [place] [address] Assigned PCP 04/30/23 07/15/23 Radha Lomeli APRN SOW FARM BARN TECHNICIAN [address] [facility] [address] [place] [address] Assigned Heart and Vascular Provider 05/28/23 Jelena David OD [address] [place] [address] Ophthalmology 06/15/23 Pao Joseph, VJ Personal Advocate & Liaison (PAL) Nurse 08/01/23 11/07/23 Esha Grimm PA-C [address] [place] [address] Assigned PCP 07/16/23 Valery Veronica PA-C [address] [place], [place] [address] Physician Medical Delivery Technician Dermatology 09/19/23 Rey Tay MD 909 [place] [address] Gastroenterology 09/20/23 Rocky Zepeda DO 500 [place] [address] Physician Gastroenterology 09/20/23 Philip Dumont MD 516 [place] [address] Physician Ophthalmology 09/22/23 Meredith Carrera PA-C 909 [place] [address] Assigned Gastroenterology Provider 11/01/23 Neil Kent MD [address] [address] MD Dermatology 11/02/23 [place] [address] [address] Neurological Surgery 12/26/23 Audrey Waite PA-C 500 [place] [address] Physician Medical Delivery Technician Dermatology 02/28/24 Valery Veronica PA-C [address] [place] [address] Physician Medical Delivery Technician Dermatology 04/10/24 Herminia Hatch MD [facility]5 [place], [place] [address] Assigned Rheumatology Provider 07/02/24 documented as of this encounter
--- OUTSIDE RECORDS SUMMARY | 2024-07-22 22:46 | XMS_ITS | Encounter Summary ---
Author Organization [facility] Address [address] [place] [address] Care Team Providers Care Buggyman Name Role Phone Lita Oseguera Unavailable Unavailable Marija Edgar APRN V BELT BUILDER Primary Care Provider + Marija Edgar APRN V BELT BUILDER Unavailable [phone] Keisha Dotson MD Unavailable Galo Burrell MD Unavailable Unavailable Diana Desir [facility] Unavailable Rain Galaviz PA-C Unavailable Summer Lara MD Unavailable [phone] Tavia Wyatt MD Unavailable Johnny Murillo MD Unavailable Erica Farrell APRN V BELT BUILDER Unavailable Tavia Wyatt MD Unavailable Diana Desir [facility] Unavailable Rich Barrett MD Unavailable Neil [place] MD Unavailable Roney Story DPM Unavailable [phone] Erica Farrell APRN V BELT BUILDER Unavailable + Diana Desir [facility] Unavailable Jelena David OD Unavailable Galo Burrell MD Unavailable Unavailable HoLivan MD Unavailable Livan Sharif MD Unavailable IskoCatherine boothe MD Unavailable + Valery Veronica PA-C Unavailable [phone] Catherine Cm MD Unavailable + Johnny Murillo MD Unavailable [phone] Brea Quinn HERPETOLOGIST V BELT BUILDER Unavailable [phone] Brea Quinn HERPETOLOGIST V BELT BUILDER Unavailable [phone] Jose Francisco Johnson MD Unavailable Livan Sharif MD Unavailable + IsCatherine boothe MD Unavailable + Sydnie Martinez RN Unavailable Unavailable Alfonso Renteria MD Unavailable Esha Grimm PA-C Primary Care Provider Cheng Todd PA-C Unavailable Radha Lomeli HERPETOLOGIST V BELT BUILDER Unavailable [phone] Jelena David OD Unavailable Pao Joseph RN Unavailable Unavailable Esha Grimm PA-C Unavailable [phone] Valery Veronica PA-C Unavailable [phone] Rey Tay MD Unavailable Rocky Zepeda DO Unavailable Philip Dumont MD Unavailable [phone] Meredith Carrera PA-C Unavailable Neil Kent MD Unavailable Juan Pablo Emmanuel MD Unavailable [phone] Audrey Waite PA-C Unavailable [phone] Valery Veronica PA-C Unavailable [phone] Hermniia Hatch MD Unavailable Encounter Details Date Type Department Care Team (Late st Contact Info) Description 03/09/2022 MyC Medical Advice [address] [address] Abby Dye Social History Tobacco [...] How often do you attend amish or lutheran serv ices? Never 09/22/2021 Do [...] [facility] of Occupat ional [facility] - Occupational Stress Questionnaire Answer Date [...] in a half-way (including now)? No 09/22/2021 [place] Depression Scale Answer Date Recorded [place] Depression Score 5 01/14/2021 Last EPDS Self Harm Result Not on file 01/14 Education Answer Date Recorded What is the highest level of school you have completed or the highest degree you have received? 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 LINE TENDER Gender Identity Female 03/02/2021 5:45 PM [...] 10/23/2024 9:30 AM CDT Office Visit [facility] Neurology [address], [address] [place] [address] [place] [address] [place], [place] [address] Johnny Penn MD 2384 [place], [place] [address] 11/28/2024 7:45 AM CDT Virtual Visit [facility] Gastroenterology Clinic [address] 4th [place] [phone] Meredith Carrera PAUcheC [address] [place] [address] documented as of this encounter Visit Diagnoses Not on filedocumented in this encounter Additional Health Concerns Infection Onset Date Last Indicated Resolved Time Rule Out COVID-19 04/26/2022 04/26/2022 04/26/2022 6:47 AM CDT Rule Out COVID-19 05/17/2022 05/17/2022 05/17/2022 10:20 PM LINE TENDER Rule Out COVID-19 06/09/2022 06/09/2022 06/09/2022 9:35 AM LINE TENDER COVID-19 06/09/2022 06/09/2022 06/30/2022 11:4 1 PM LINE TENDER Rule Out COVID-19 11/10/2022 11/10/2022 11/11/2022 12:17 PM CDT Rule Out COVID-19 03/07/2023 03/07/2023 03/07/2023 1:20 PM CDT Rule Out COVID-19 12/26/2023 12/26/2023 12/26/2023 9:50 AM CDT Rule Out COVID-19 04/09/2024 04/09/2024 04/10/2024 6:48 PM CDT Assessment Noted Time PHQ-9 Depression Total Score: 2 12/19/19 22 2:50 PM CDT documented as of this encounter Care Teams Buggyman Relationship Specialty Start Date End Date Marija Edgar APRN V BELT BUILDER PCP - General Nurse Practitioner 04/30/20 04/14/23 Esha Grimm PA-C [address] [place] [phone] PCP - General Family Medicine 05/04/23 Lita Oseguera Personal Advocate & Liaison (PAL) 02/28/20 03/27/23 Marija Edgar APRN V BELT BUILDER Assigned PCP 06/08/20 04/29/23 Keisha Dotson MD 909 [place] [address] Assigned Neuroscience Provider 06/04/20 04/01/23 Galo Burrell MD Assigned Heart and Vascular Provider 10/05/20 04/02/22 [facility] [address] [place] [address] Pharmacist Pharmacist 04/17/21 Rain Galaviz PA-C [address] [facility] [place] [address] Physician Apparatus Operator Dermatology 04/28/21 Summer Lara MD [address] [place] [address] Assigned OBGYN Provider 05/31/21 2 Tavia Wyatt MD [address] [place], [place] [address] [place], [place] [address] Dermatology 07/14/21 Johnny Murillo MD [address] [place] [address] Assigned Musculoskeletal Provider 08/30/21 03/17/22 Erica Farrell APRN V BELT BUILDER 6[address] [facility] [address] [place] [address] Nurse Practitioner Cardiovascular Disease 09/09/21 Tavia Wyatt MD [address] [place] [address] Assigned Surgical Provider 11/29/21 05/07/22 Diana Desir, [facility] 30[address] [place] [address] Assigned MTM Pharmacist 01/02/22 Rich Barrett MD [address] [phone] Physician Ophthalmology 01/21/22 Neil Kent MD 500 [place], [place] [address] Dermatology 02/24/22 [place] [address] [facility] [address] [place] [address] Assigned Musculoskeletal Provider 03/20/22 08/13/22 Erica Farrell APRN V BELT BUILDER 1700 [place] [address] Assigned Heart and Vascular Provider 04/03/22 04/16/22 Diana Desir, [facility] 3033 [place] [address] Assigned MTM Pharmacist 04/07/22 Jelena David OD [address] [facility] [place] [address] Assigned Surgical Provider 05/08/22 10/08/22 Galo Burrell MD Assigned Heart and Vascular Provider 04/17/22 06/11/22 Livan Sharif MD [address], [facility] [address] [place] [address] Cardiovascular Disease 05/14/22 Livan Sharif MD [address], [facility] [address] [place] [address] Assigned Heart and Vascular Provider 06/12/22 07/23/22 Catherine Cm MD [address] [facility]00 [place] [address] Cardiovascular Disease 07/21/22 Valery Veronica, PA-C [address] [place] [address] Physician Apparatus Operator Dermatology 07/21/22 Catherine Cm MD [address] [facility] [address] [place] [address] Assigned Heart and Vascular Provider 07/24/22 11/05/22 Johnny Murillo MD [address] [place] [address] 988044 Assigned Musculoskeletal Provider 08/14/22 10/08/22 Brea Quinn APRN V BELT BUILDER [address] [place] [address] Nurse Practitioner Dermatology 09/21/22 Brea Quinn APRN V BELT BUILDER [address] [place] [address], [place] [address] Assigned Surgical Provider 10/09/22 05/01/24 [place] [address] [place] [address] Assigned Musculoskeletal Provider 10/09/22 05/01/24 Livan Sharif MD [address] [facility] [address] [place] [address] Assigned Heart and Vascular Provider 11/06/22 11/12/22 Catherine Cm MD [address] [facility]00 [place] [address]65[address] Assigned Heart and Vascular Provider 11/13/22 05/27/23 Sydnie Martinez RN Personal Advocate & Liaison (PAL) Family Medicine 03/28/23 07/31/23 Alfonso Renteria MD 5775 [facility] 200 [place] [address] Assigned Neuroscience Provider 04/02/23 Cheng Todd PA-C [address] [place] [address] Assigned PCP 04/30/23 07/15/23 Radha Lomeli APRN V BELT BUILDER [address] [place] [address] Assigned Heart and Vascular Provider 05/28/23 Jelena David OD 3305 [facility] [place] [address] MD Ophthalmology 06/15/23 Pao Joseph, RN Personal Advocate & Liaison (PAL) Nurse 08/01/23 11/07/23 Esha Grimm PA-C [address] [place] [address] Assigned PCP 07/16/23 Valery Veronica PA-C [address] [place] [address] Physician Apparatus Operator Dermatology 09/19/23 Rey Tay MD [address] [place] [address] MD Gastroenterology 09/20/23 Rocky Zepeda DO [address] [place] [address] Physician Gastroenterology 09/20/23 Philip Dumont MD [address] [place] [address] Physician Ophthalmology 09/22/23 Meredith Carrera PA-C [address] [place] [address] Assigned Gastroenterology Provider 11/01/23 Neil Kent MD [address] [address] Dermatology 11/02/23 [place] [address] [place] [address] Neurological Surgery 12/26/23 Audrey Waite PA-C 500 [place] [address] Physician Apparatus Operator Dermatology 02/28/24 Valery Veronica PA-C [address] [place] [address] Physician Apparatus Operator Dermatology 04/10/24 Herminia Hatch MD [address] [place] [address] [id number] Assigned Rheumatology Provider 07/02/24 documented as of this encounter
--- OUTSIDE RECORDS SUMMARY | 2024-07-22 22:46 | XMS_ITS | Encounter Summary ---
Author Organization [place] Address [address] [place] [address] Care Team Providers Care Machine Tool Dresser Name Role Phone Lita Oseguera Unavailable Unavailable Marija Edgar APRN PICK UP TRUCK DRIVER Primary Care Provider + Marija Edgar APRN PICK UP TRUCK DRIVER Unavailable [phone] Mynor Broussard MD Unavailable [phone] Keisha Dotson MD Unavailable [phone] Galo Burrell MD Unavailable Unavailable Diana Desir [facility] Unavailable Rain Galaviz PA-C Unavailable Summer Lara MD Unavailable [phone] Tavia Wyatt MD Unavailable Johnny Murillo MD Unavailable Erica Farrell APRN PICK UP TRUCK DRIVER Unavailable Tavia Wyatt MD Unavailable Diana Desir [facility] Unavailable Rich Barrett MD Unavailable [phone] Neil Kent MD Unavailable Roney Story DPM Unavailable Erica Farrell INDUSTRIAL PSYCHOLOGY PROFESSOR PICK UP TRUCK DRIVER Unavailable Diana Desir [facility] Unavailable Jelena David OD Unavailable [phone] Galo Burrell MD Unavailable Unavailable Livan Sharif MD Unavailable Livan Sharif MD Unavailable Catherine Cm MD Unavailable + Valery Veronica PA-C Unavailable [phone] Catherine Cm MD Unavailable + Johnny Murillo MD Unavailable [phone] Brea Quinn INDUSTRIAL PSYCHOLOGY PROFESSOR PICK UP TRUCK DRIVER Unavailable [phone] Brea Quinn INDUSTRIAL PSYCHOLOGY PROFESSOR PICK UP TRUCK DRIVER Unavailable [phone] Jose Francisco Johnson MD Unavailable Livan Sharif MD Unavailable + IsCatherine hobbs MD Unavailable + Sydnie Martinez RN Unavailable Unavailable Alfonso Renteria MD Unavailable Esha Grimm PA-C Primary Care Provider Cheng Todd PA-C Unavailable Radha Lomeli INDUSTRIAL PSYCHOLOGY PROFESSOR PICK UP TRUCK DRIVER Unavailable [phone] Jelena David OD Unavailable Pao Joseph RN Unavailable Unavailable Esha Grimm PA-C Unavailable [phone] Valery Veronica PA-C Unavailable [phone] Rey Tay MD Unavailable Rocky Zepeda DO Unavailable Philip Dumont MD Unavailable Meredith Carrera PA-C Unavailable [phone] Neil Kent MD Unavailable Juan Pablo Emmanuel MD Unavailable [phone] Audrey Waite PA-C Unavailable [phone] Valery Veronica PA-C Unavailable [phone] Herminia Hatch MD Unavailable Encounter Details Date Type Department Care Team (Late st Contact Info) Description 10/17/2021 [facility] Medical Advice [address] [address] [facility] [address] [place] [address] Social History Tobacco Use Types Packs/Day Years [...] How often do you attend baptist or yazdanism serv ices? Never 09/22/2021 Do [...] Answer Date Recorded PHQ-2 Score 2 09/22/2021 [facility] [...] in a fpc (including now)? No 09/22/2021 [place] Depression Scale Answer Date Recorded [place] Depression Score 5 01/14/2021 Last EPDS Self Harm Result Not on file 01/14 Education Answer Date Recorded What is the highest level of school you have completed or the highest degree you have received? 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 SPRING FORMER MACHINE Gender Identity Female 03/02/2021 5:45 PM CDT [...] Office Visit [facility] Neurology Clinics [address], [address] [place] [address] [place] [address] [place] [address] Johnny Penn MD [address] [place] [id number] 11/28/2024 7:45 AM CDT Virtual Visit [facility] Gastroenterology Clinic [address] 4th [place] [phone] Meredith Carrera PA-C [address] [place] [address] documented as of this encounter Visit Diagnoses Not on filedocumented in this encounter Additional Health Concerns Infection Onset Date Last Indicated Resolved Time Rule Out COVID-19 12/18/2021 12/18/2021 12/19/2021 11:34 AM CDT Rule Out COVID-19 02/24/2022 02/24/2022 02/25/2022 1:08 PM CDT Rule Out COVID-19 04/26/2022 04/26/2022 04/26/2022 6:47 AM CDT Rule Out COVID-19 05/17/2022 05/17/2022 05/17/2022 10:20 PM SPRING FORMER MACHINE Rule Out COVID-19 06/09/2022 06/09/2022 06/09/2022 9:35 AM SPRING FORMER MACHINE COVID-19 06/09/2022 06/09/2022 06/30/2022 11:4 1 PM SPRING FORMER MACHINE Rule Out COVID-19 11/10/2022 11/10/2022 11/11/2022 12:17 PM CDT Rule Out COVID-19 03/07/2023 03/07/2023 03/07/2023 1:20 PM CDT Rule Out COVID-19 12/26/2023 12/26/2023 12/26/2023 9:50 AM CDT Rule Out COVID-19 04/09/2024 04/09/2024 04/10/2024 6:48 PM CDT Assessment Noted Time PHQ-9 Depression Total Score: 2 04/02/20 21 10:19 AM CDT documented as of this encounter Care Teams Machine Tool Dresser Relationship Specialty Start Date End Date Marija Edgar APRN CNP PCP - General Nurse Practitioner 04/30/20 04/14/23 Esha Grimm PA-C [address] [place] [address] PCP - General Family Medicine 05/04/23 Lita Oseguera Personal Advocate & Liaison (PAL) 02/28/20 03/27/23 Marija Edgar APRN PICK UP TRUCK DRIVER Assigned PCP 06/08/20 04/29/23 Mynor Broussard MD [address] [facility] 500 [place], [place] 318135 Assigned Surgical Provider 06/01/20 11/28/21 Keisha Dotson MD 909 [place], [place] 761075 Assigned Neuroscience Provider 06/04/20 04/01/23 Galo Burrell MD Assigned Heart and Vascular Provider 10/05/20 04/02/22 Diana Desir, [facility] [address] [place] [address] Pharmacist Pharmacist 04/17/21 Rain Galaviz PA-C [address] [place] [address] [address] [place] [address] Physician Cigarette Tester Dermatology 04/28/21 Summer Lara MD [address] [place] [address] Assigned OBGYN Provider 05/31/21 2 Tavia Wyatt MD [address] [place] [address] Dermatology 07/14/21 Johnny Murillo MD [address] [place] [address] Assigned Musculoskeletal Provider 08/30/21 03/17/22 Erica Farrell APRN PICK UP TRUCK DRIVER [address] [facility] [address] [place] [address] Nurse Practitioner Cardiovascular Disease 09/09/21 Tavai Wyatt MD [address] [place] [address] Assigned Surgical Provider 11/29/21 05/07/22 [facility] [address] [place] [address] Assigned MTM Pharmacist 01/02/22 Rich Barrett MD 516 [facility] [address] [place], [place] 04[address] Physician Ophthalmology 01/21/22 Neil Kent MD 500 [place], [place] 793845 Dermatology 02/24/22 Roney Story DPM [address] [facility] [address] [place], [place] 955[address] Assigned Musculoskeletal Provider 03/20/22 08/13/22 Erica Farrell APRN PICK UP TRUCK DRIVER 1700 [place] [address] Assigned Heart and Vascular Provider 04/03/22 04/16/22 Diana Desir, [facility] [address] [place] [address] Assigned MTM Pharmacist 04/07/[address] [facility] [place] [address] Assigned Surgical Provider 05/08/22 10/08/22 Galo Burrell MD Assigned Heart and Vascular Provider 04/17/22 06/11/22 Livan Sharif MD [address] [place] [address] Cardiovascular Disease 05/14/22 Liavn Sharif MD [address] [place] 218395 Assigned Heart and Vascular Provider 06/12/22 07/23/22 Catherine Cm MD [address] [place] [address] Cardiovascular Disease 07/21/22 Valery Veronica PA-C 909 [place], [place] 496795 Physician Cigarette Tester Dermatology 07/21/22 Catherine Cm MD [address] [place] [address] Assigned Heart and Vascular Provider 07/24/22 11/05/22 Johnny Murillo MD [address] [place] [address] Assigned Musculoskeletal Provider 08/14/22 10/08/22 Brea Quinn APRN PICK UP TRUCK DRIVER 500 [place] [address] Nurse Practitioner Dermatology 09/21/22 Brea Quinn APRN PICK UP TRUCK DRIVER [address] [place] [address] Assigned Surgical Provider 10/09/22 05/01/24 [place] [address] [address] Assigned Musculoskeletal Provider 10/09/22 05/01/24 Livan Sharif MD 6405 [facility] , [facility] [address] [place] [address] Assigned Heart and Vascular Provider 11/06/22 11/12/22 Catherine Cm MD 6405 [facility] [address] [place] [address] Assigned Heart and Vascular Provider 11/13/22 05/27/23 Sydnie Martinez, VJ Personal Advocate & Liaison (PAL) Family Medicine 03/28/23 07/31/23 Alfonso Renteria MD 5775 [facility] 200 [place], [place] 641186 Assigned Neuroscience Provider 04/02/23 Cheng Todd PA-C [address] [place] [address] [phone] Assigned PCP 04/30/23 07/15/23 Radha Lomeli APRN PICK UP TRUCK DRIVER 6405 [facility] [address] [place] [address] Assigned Heart and Vascular Provider 05/28/23 [place] [address] [facility] [place] [address] MD Ophthalmology 06/15/23 Pao Joseph, VJ Personal Advocate & Liaison (PAL) Nurse 08/01/23 11/07/23 Esha Grimm PA-C [address] [place] [address] Assigned PCP 07/16/23 Valery Veronica PA-C [address] [place] [address] Physician Cigarette Tester Dermatology 09/19/23 Rey Tay MD [address] [place] [address]305 Gastroenterology 09/20/23 Rocky Zepeda DO [address] [place] [address] [phone] Physician Gastroenterology 09/20/23 Philip Dumont MD [address] [place] [address] 113685 Physician Ophthalmology 09/22/23 Meredith Carrera PA-C [address] [place], [place] 218625 Assigned Gastroenterology Provider 11/01/23 Neil Kent MD [address] 301880 Dermatology 11/02/23 [place] [address] [place] [address] 744547 Neurological Surgery 12/26/23 Audrey Waite PA-C [address] [place] [address] 408915 Physician Cigarette Tester Dermatology 02/28/24 Valery Veronica PA-C 047137 [address] [address] Physician Cigarette Tester Dermatology 04/10/24 Herminia Hatch MD [facility] [place], [place] [phone] Assigned Rheumatology Provider 07/02/24 documented as of this encounter
--- OUTSIDE RECORDS SUMMARY | 2024-07-22 22:46 | XMS_ITS | Encounter Summary ---
Author Organization [facility] Address [address] [place] [address] Care Team Providers Care Hydraulic Repairer Name Role Phone Lita Oseguera Unavailable Unavailable Marija Edgar APRN ION IMPLANT MACHINE OPERATOR Primary Care Provider + Marija Edgar APRN ION IMPLANT MACHINE OPERATOR Unavailable [phone] Keisha Dotson MD Unavailable Galo Burrell MD Unavailable Unavailable Diana Desir [facility] Unavailable Rain Galaviz PA-C Unavailable Summer Lara MD Unavailable [phone] Tavia Wyatt MD Unavailable Johnny Murillo MD Unavailable [phone] Erica Farrell APRN ION IMPLANT MACHINE OPERATOR Unavailable Tavia Wyatt MD Unavailable Diana Desir [facility] Unavailable Rich Barrett MD Unavailable Neil Kent MD Unavailable Roney Story DPM Unavailable [phone] Erica Farrell APRN ION IMPLANT MACHINE OPERATOR Unavailable + Diana Desir [facility] Unavailable Jelena David OD Unavailable Galo Burrell MD Unavailable Unavailable HoLivan MD Unavailable Livan Sharif MD Unavailable IskoCatherine boothe MD Unavailable + Valery Veronica PA-C Unavailable [phone] Catherine Cm MD Unavailable + Johnny Murillo MD Unavailable [phone] Brea Quinn STAVE CUTTING SUPERVISOR ION IMPLANT MACHINE OPERATOR Unavailable [phone] Brea Quinn STAVE CUTTING SUPERVISOR ION IMPLANT MACHINE OPERATOR Unavailable [phone] Jose Francisco Johnson MD Unavailable Livan Sharif MD Unavailable + IsCatheirne boothe MD Unavailable + Sydnie Martinez RN Unavailable Unavailable Alfonso Renteria MD Unavailable Esha Grimm PA-C Primary Care Provider Cheng Todd PA-C Unavailable Radha Lomeli STAVE CUTTING SUPERVISOR ION IMPLANT MACHINE OPERATOR Unavailable [phone] Jelena David OD Unavailable Pao Joseph RN Unavailable Unavailable Esha Grimm PA-C Unavailable [phone] Valery Veronica PA-C Unavailable [phone] Rey Tay MD Unavailable Rocky Zepeda DO Unavailable Philip Dumont MD Unavailable [phone] Meredith Carrera PA-C Unavailable eNil Kent MD Unavailable Juan Pablo Emmanuel MD Unavailable [phone] Audrey Waite PA-C Unavailable [phone] Valery Veronica PA-C Unavailable [phone] Herminia Hatch MD Unavailable Encounter Details Date Type Department Care Team (Late st Contact Info) Description 12/03/2021 [facility] Medical Advice [address] [address] Debbie Hdez MA Social History [...] often do you attend oriental orthodox or roman catholic serv ices? Never 09/22/2021 [...] Answer Date Recorded PHQ-2 Score 2 09/22/2021 [facility] - [...] in a usp (including now)? No 09/22/2021 [place] Depression Scale Answer Date Recorded [place] Depression Score 5 01/14/2021 Last EPDS Self Harm Result Not on file 01/14 Education Answer Date Recorded What is the highest level of school you have completed or the highest degree you have received? 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 TRIAGE SPECIALIST Gender Identity Female 03/02/2021 5:45 PM [...] Description 10/23/2024 9:30 AM CDT Office Visit [facility] Neurology [address], [address] [place] [address] [place] [address] [place], [place] 7032[address] Johnny Penn MD [address]90 [place], [place] 7[address] 11/28/2024 7:45 AM CDT Virtual Visit [facility] Gastroenterology Clinic [address] 4th [place] [address] Meredith Carrera PA-C [address] [place] [address] documented as of this encounter Visit Diagnoses Not on filedocumented in this encounter Additional Health Concerns Infection Onset Date Last Indicated Resolved Time Rule Out COVID-19 12/18/2021 12/18/2021 12/19/2021 11:34 AM CDT Rule Out COVID-19 02/24/2022 02/24/2022 02/25/2022 1:08 PM CDT Rule Out COVID-19 04/26/2022 04/26/2022 04/26/2022 6:47 AM CDT Rule Out COVID-19 05/17/2022 05/17/2022 05/17/2022 10:20 PM TRIAGE SPECIALIST Rule Out COVID-19 06/09/2022 06/09/2022 06/09/2022 9:35 AM TRIAGE SPECIALIST COVID-19 06/09/2022 06/09/2022 06/30/2022 11:4 1 PM TRIAGE SPECIALIST Rule Out COVID-19 11/10/2022 11/10/2022 11/11/2022 12:17 PM CDT Rule Out COVID-19 03/07/2023 03/07/2023 03/07/2023 1:20 PM CDT Rule Out COVID-19 12/26/2023 12/26/2023 12/26/2023 9:50 AM CDT Rule Out COVID-19 04/09/2024 04/09/2024 04/10/2024 6:48 PM CDT Assessment Noted Time PHQ-9 Depression Total Score: 2 04/02/20 10:19 AM CDT documented as of this encounter Care Teams Hydraulic Repairer Relationship Specialty Start Date End Date Marija Edgar APRN CNP PCP - General Nurse Practitioner 04/30/20 04/14/23 Esha Grimm PA-C [address] [place] [address] PCP - General Family Medicine 05/04/23 Lita Oseguera Personal Advocate & Liaison (PAL) 02/28/20 03/27/23 Marija Edgar APRN ION IMPLANT MACHINE OPERATOR Assigned PCP 06/08/20 04/29/23 Keisha Dotson MD 909 [place], [place] 047945 Assigned Neuroscience Provider 06/04/20 04/01/23 Galo Burrell MD Assigned Heart and Vascular Provider 10/05/20 04/02/22 [facility] 3033 [place] [address] Pharmacist Pharmacist 04/17/21 Rain Galaviz PA-C [address] [place] [address] [place] [address] Physician Metal Grinder Dermatology 04/28/21 Summer Lara MD [address] [place], [place] 189274 Assigned OBGYN Provider 05/31/21 2 Tavia Wyatt MD [address] [place], [place] 9[address] Dermatology 07/14/21 Johnny Murillo MD [address] [place] [address] Assigned Musculoskeletal Provider 08/30/21 03/17/22 Erica Farrell APRN ION IMPLANT MACHINE OPERATOR 6405 [facility] [address] [place] [address] Nurse Practitioner Cardiovascular Disease 09/09/21 Tavia Wyatt MD [address] [place] [address] Assigned Surgical Provider 11/29/21 05/07/22 Diana Desir [facility] [address] [place] [address] Assigned MTM Pharmacist 01/02/22 Rich Barrett MD [address] 575685 Physician Ophthalmology 01/21/22 Neil Kent MD 500 [place], [place] 87[address] Dermatology 02/24/22 [place] [address] [facility] [address] [place] [address] Assigned Musculoskeletal Provider 03/20/22 08/13/22 Erica Farrell APRN ION IMPLANT MACHINE OPERATOR 1700 [place] [address] Assigned Heart and Vascular Provider 04/03/22 04/16/22 Diana Desir [facility] [address] [place] [address] Assigned MTM Pharmacist 04/07/22 Jelena David OD [address] [place] [address] Assigned Surgical Provider 05/08/22 10/08/22 Galo Burrell MD Assigned Heart and Vascular Provider 04/17/22 06/11/22 Livan Sharif MD [address], [facility]00 [place], [place] [address] Cardiovascular Disease 05/14/22 Livan Sharif MD [address], [place] [address] [place] 632195 Assigned Heart and Vascular Provider 06/12/22 07/23/22 Catherine Cm MD [address] [place] [address] [place], [place] [address] Cardiovascular Disease 07/21/22 Valery Veronica, PA-C [address] [place] [address] 127195 Physician Metal Grinder Dermatology 07/21/22 Catherine Cm MD [address] [place] [address] [place], [place] 258255 Assigned Heart and Vascular Provider 07/24/22 11/05/22 Johnny Murillo MD [address] [place] [address] [id number] Assigned Musculoskeletal Provider 08/14/22 10/08/22 Brea Quinn APRN ION IMPLANT MACHINE OPERATOR [address] [place] [address] Nurse Practitioner Dermatology 09/21/22 Brea Quinn APRN ION IMPLANT MACHINE OPERATOR [address] [place] [address] Assigned Surgical Provider 10/09/22 05/01/24 [place] [address] [address] [address] Assigned Musculoskeletal Provider 10/09/22 05/01/24 Livan Sharif MD [address] [place] [address] Assigned Heart and Vascular Provider 11/06/22 11/12/22 Catherine Cm MD [address] [facility] [place] [address] Assigned Heart and Vascular Provider 11/13/22 05/27/23 Sydnie Martinez, RN Personal Advocate & Liaison (PAL) Family Medicine 03/28/23 07/31/23 Alfonso Renteria MD [address] [facility] 200 [place] [address] Assigned Neuroscience Provider 04/02/23 Cheng Todd PA-C [address] [place] [address] [phone] Assigned PCP 04/30/23 07/15/23 Radha Lomeli APRN ION IMPLANT MACHINE OPERATOR [address] [place] 213785 Assigned Heart and Vascular Provider 05/28/23 Jelena David OD [address] [place] [address] MD Ophthalmology 06/15/23 Pao Joseph, RN Personal Advocate & Liaison (PAL) Nurse 08/01/23 11/07/23 Esha Grimm PA-C [address] [place] [address] Assigned PCP 07/16/23 Valery Veronica PA-C [address] [place] [address] Physician Metal Grinder Dermatology 09/19/23 Rey Tay MD [address] [place] [address] MD Gastroenterology 09/20/23 Rocky Zepeda DO [address] [place] [address] 040135 Physician Gastroenterology 09/20/23 Philip Dumont MD [address] [place] [address] 836305 Physician Ophthalmology 09/22/23 Meredith Carrera PA-C [address] [place] [address] 577595 Assigned Gastroenterology Provider 11/01/23 Neil Kent MD [address] [address] Dermatology 11/02/23 [place] [address] [address] Neurological Surgery 12/26/23 Audrey Waite PAUcheC 500 [place] [address] Physician Metal Grinder Dermatology 02/28/24 Valery Veronica PA-C [address] [place] [address] Physician Metal Grinder Dermatology 04/10/24 Herminia Hatch MD [address] [place] [address] [phone] Assigned Rheumatology Provider 07/02/24 documented as of this encounter
--- OUTSIDE RECORDS SUMMARY | 2024-07-22 22:46 | XMS_ITS | Encounter Summary ---
Author Organization [facility] Address [address] [place] [address] Care Team Providers Care Ear Mold Laboratory Technician Name Role Phone Lita Oseguera Unavailable Unavailable Marija Edgar APRN PANELBOARD OPERATOR Primary Care Provider + Marija Edgar APRN PANELBOARD OPERATOR Unavailable [phone] Mynor Broussard MD Unavailable [phone] Keisha Dotson MD Unavailable Galo Burrell MD Unavailable Unavailable Diana Desir [facility] Unavailable Rain Galaviz PA-C Unavailable Summer Lara MD Unavailable [phone] Tavia Wyatt MD Unavailable Johnny Murillo MD Unavailable Erica Farrell APRN PANELBOARD OPERATOR Unavailable Tavia Wyatt MD Unavailable Diana Desir [facility] Unavailable Rich Barrett MD Unavailable [phone] Neil Kent MD Unavailable Roney Story DPM Unavailable Erica Farrell IRON MINER PANELBOARD OPERATOR Unavailable Diana Desir [facility] Unavailable Jelena David OD Unavailable Galo Burrell MD Unavailable Unavailable Livan Sharif MD Unavailable Livan Sharif MD Unavailable Catherine Cm MD Unavailable + Valery Veronica PA-C Unavailable [phone] Catherine Cm MD Unavailable + Johnny Murillo MD Unavailable [phone] Brea Quinn IRON MINER PANELBOARD OPERATOR Unavailable [phone] Brea Quinn IRON MINER PANELBOARD OPERATOR Unavailable [phone] Jose Francisco Johnson MD Unavailable Livan Sharif MD Unavailable + IsCatherine hobbs MD Unavailable + Sydnie Martinez RN Unavailable Unavailable Alfonso Renteria MD Unavailable Esha Grimm PA-C Primary Care Provider Cheng Todd PA-C Unavailable Radha Lomeli IRON MINER PANELBOARD OPERATOR Unavailable [phone] Jelena David OD Unavailable Pao Joseph RN Unavailable Unavailable Esha Grimm PA-C Unavailable [phone] Valery Veronica PA-C Unavailable [phone] Rey Tay MD Unavailable Rocky Zepeda DO Unavailable Philip Dumont MD Unavailable Meredith Carrera PA-C Unavailable [phone] Neil Kent MD Unavailable Juan Pablo Emmanuel MD Unavailable [phone] Audrey Waite PA-C Unavailable [phone] Valery Veronica PA-C Unavailable [phone] Herminia Hatch MD Unavailable Encounter Details Date Type Department Care Team (Late st Contact Info) Description 11/04/2021 [facility] Medical Advice [address] [address] [facility] [address] [place] [address] Social History Tobacco Use Types Packs/Day Years [...] How often do you attend sabianist or yazidism serv ices? Never 09/22/2021 Do [...] Answer Date Recorded PHQ-2 Score 2 09/22/2021 [facility] of Occupat ional [...] a senior living (including now)? No 09/22/2021 [place] Depression Scale Answer Date Recorded [place] Depression Score 5 01/14/2021 Last EPDS Self Harm Result Not on file 01/14 Education Answer Date Recorded What is the highest level of school you have completed or the highest degree you have received? 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 A P SUPERVISOR Gender Identity Female 03/02/2021 5:45 PM [...] CDT Office Visit [facility] Neurology [address], [address] [place] [address] [place] [address] [address] [place] [address] Johnny Penn MD [address] [place] [id number] 11/28/2024 7:45 AM CDT Virtual Visit [facility] [address] 4th [place] [phone] Meredith Carrera PA-C [address] [place] [address] documented as of this encounter Visit Diagnoses Not on filedocumented in this encounter Additional Health Concerns Infection Onset Date Last Indicated Resolved Time Rule Out COVID-19 12/18/2021 12/18/2021 12/19/2021 11:34 AM CDT Rule Out COVID-19 02/24/2022 02/24/2022 02/25/2022 1:08 PM CDT Rule Out COVID-19 04/26/2022 04/26/2022 04/26/2022 6:47 AM CDT Rule Out COVID-19 05/17/2022 05/17/2022 05/17/2022 10:20 PM A P SUPERVISOR Rule Out COVID-19 06/09/2022 06/09/2022 06/09/2022 9:35 AM A P SUPERVISOR COVID-19 06/09/2022 06/09/2022 06/30/2022 11:4 1 PM A P SUPERVISOR Rule Out COVID-19 11/10/2022 11/10/2022 11/11/2022 12:17 PM CDT Rule Out COVID-19 03/07/2023 03/07/2023 03/07/2023 1:20 PM CDT Rule Out COVID-19 12/26/2023 12/26/2023 12/26/2023 9:50 AM CDT Rule Out COVID-19 04/09/2024 04/09/2024 04/10/2024 6:48 PM CDT Assessment Noted Time PHQ-9 Depression Total Score: 2 04/02/20 21 10:19 AM CDT documented as of this encounter Care Teams Ear Mold Laboratory Technician Relationship Specialty Start Date End Date Marija Edgar APRN CNP PCP - General Nurse Practitioner 04/30/20 04/14/23 Esha Grimm PA-C [address] [place] [address] PCP - General Family Medicine 05/04/23 Lita Oseguera Personal Advocate & Liaison (PAL) 02/28/20 03/27/23 Marija Edgar APRN PANELBOARD OPERATOR Assigned PCP 06/08/20 04/29/23 Mynor Broussard MD 6363 [facility] 500 [place], [place] 7[address] Assigned Surgical Provider 06/01/20 11/28/21 Keisha Dotson MD 909 [place], [place] 616365 Assigned Neuroscience Provider 06/04/20 04/01/23 Galo Burrell MD Assigned Heart and Vascular Provider 10/05/20 04/02/22 Diana Desir, [facility] [address] [place] [address] Pharmacist Pharmacist 04/17/21 Rain Galaviz PA-C [address] [facility] [address] [place] [address] Physician Lead Burner Supervisor Dermatology 04/28/21 Summer Lara MD [address] [place] [address] Assigned OBGYN Provider 05/31/21 2 Tavia Wyatt MD [address] [place] [address] Dermatology 07/14/21 Johnny Murillo MD [address] [place] [address] Assigned Musculoskeletal Provider 08/30/21 03/17/22 Erica Farrell APRN PANELBOARD OPERATOR [address] [facility] [address] [place] [address] Nurse Practitioner Cardiovascular Disease 09/09/21 Tavia Wyatt MD [address] [place] [address] Assigned Surgical Provider 11/29/21 05/07/22 [facility] 30[address] [place] [address] Assigned MTM Pharmacist 01/02/22 Rich Barrett MD 516 [facility] 9A [place], [place] [address] Physician Ophthalmology 01/21/22 Neil Kent MD 500 [place], [place] 939[address] Dermatology 02/24/22 [place] [address] [facility] 300 [place] [address] Assigned Musculoskeletal Provider 03/20/22 08/13/22 Erica Farrell APRN PANELBOARD OPERATOR 1700 [place] [address] Assigned Heart and Vascular Provider 04/03/22 04/16/22 Diana Desir, [facility] [address] [place] [address] Assigned MTM Pharmacist 04/07/22 Jelena David OD [address] [facility] [place] [address] Assigned Surgical Provider 05/08/22 10/08/22 Galo Burrell MD Assigned Heart and Vascular Provider 04/17/22 06/11/22 Livan Sharif MD [address] [place] [address] Cardiovascular Disease 05/14/22 Livan Sharif MD [address] [place] [address] Assigned Heart and Vascular Provider 06/12/22 07/23/22 Catherine Cm MD [address] [place] [address] Cardiovascular Disease 07/21/22 Valery Veronica PA-C 9[address] [place], [place] 9205[address] Physician Lead Burner Supervisor Dermatology 07/21/22 Catherine Cm MD [address] [place] 312185 Assigned Heart and Vascular Provider 07/24/22 11/05/22 Johnny Murillo MD [facility] [address] [address] Assigned Musculoskeletal Provider 08/14/22 10/08/22 Brea Quinn APRN PANELBOARD OPERATOR 500 [place] [address] Nurse Practitioner Dermatology 09/21/22 Brea Quinn APRN PANELBOARD OPERATOR [address] [place] [address] Assigned Surgical Provider 10/09/22 05/01/24 [place] [address] [facility] [address] [place] [address] Assigned Musculoskeletal Provider 10/09/22 05/01/24 Livan Sharif MD 6405 [facility] , [facility] [address] [place] [address] Assigned Heart and Vascular Provider 11/06/22 11/12/22 Catherine Cm MD 6[address] [facility] [address] [place] [address] Assigned Heart and Vascular Provider 11/13/22 05/27/23 Sydnie Martinez, RN Personal Advocate & Liaison (PAL) Family Medicine 03/28/23 07/31/23 Alfonso Renteria MD [address]75 [facility] 200 [place], [place] 7638[address] Assigned Neuroscience Provider 04/02/23 Cheng Todd PA-C [address] [place] [address] [id number] Assigned PCP 04/30/23 07/15/23 Radha Lomeli APRN PANELBOARD OPERATOR 6405 [facility] [address] [place] [address] Assigned Heart and Vascular Provider 05/28/23 Jelena David OD [address] [facility] [place] [address] MD Ophthalmology 06/15/23 Pao Joseph, VJ Personal Advocate & Liaison (PAL) Nurse 08/01/23 11/07/23 Esha Grimm PA-C [address] [place] [address] Assigned PCP 07/16/23 Valery Veronica PA-C [address] [place] [address] Physician Lead Burner Supervisor Dermatology 09/19/23 Rey Tay MD [address] [place] [address] Gastroenterology 09/20/23 Rocky Zepeda DO [address] [place] [address] 367785 Physician Gastroenterology 09/20/23 Philip Dumont MD [address] [place] [address] 982205 Physician Ophthalmology 09/22/23 Meredith Carrera PA-C 909 [place], [place] 654105 Assigned Gastroenterology Provider 11/01/23 Neil Kent MD [address] 849240 Dermatology 11/02/23 [place] [address] [id number] Neurological Surgery 12/26/23 Audrey Waite PA-C [address] [place] [address] 887435 Physician Lead Burner Supervisor Dermatology 02/28/24 Valery Veronica PA-C 435172 [place] [address] Physician Lead Burner Supervisor Dermatology 04/10/24 Herminia Hatch MD [facility]5 [place], [place] [phone] Assigned Rheumatology Provider 07/02/24 documented as of this encounter
--- OUTSIDE RECORDS SUMMARY | 2024-07-22 22:46 | XMS_ITS | Encounter Summary ---
Author Organization [facility] Address [address] [place] [address] Care Team Providers Care Bi Architect Name Role Phone Lita Oseguera Unavailable Unavailable Marija Edgar APRN ORACLE SQL DEVELOPER Primary Care Provider + Marija Edgar APRN ORACLE SQL DEVELOPER Unavailable [phone] Keisha Dotson MD Unavailable Galo Burrell MD Unavailable Unavailable Diana Desir [facility] Unavailable Rain Galaviz PA-C Unavailable Summer Lara MD Unavailable [phone] Tavia Wyatt MD Unavailable Johnny Murillo MD Unavailable Erica Farrell APRN ORACLE SQL DEVELOPER Unavailable Tavia Wyatt MD Unavailable Diana Desir [facility] Unavailable Rich Barrett MD Unavailable Neil Kent MD Unavailable Roney Story DPM Unavailable [phone] Erica Farrell APRN ORACLE SQL DEVELOPER Unavailable + Diana Desir [facility] Unavailable Jelena David OD Unavailable Galo Burrell MD Unavailable Unavailable HoLivan MD Unavailable Livan Sharif MD Unavailable IskoCatherine boothe MD Unavailable + Valery Veronica PA-C Unavailable [phone] Catherine Cm MD Unavailable + Johnny Murillo MD Unavailable [phone] Brea Quinn MACHINE SETTER SHEET METAL ORACLE SQL DEVELOPER Unavailable [phone] Brea Quinn MACHINE SETTER SHEET METAL ORACLE SQL DEVELOPER Unavailable [phone] Jose Francisco Johnson MD Unavailable Livan Sharif MD Unavailable + IsCatherine boothe MD Unavailable + Sydnie Martinez RN Unavailable Unavailable Alfonso Renteria MD Unavailable Esha Grimm PA-C Primary Care Provider Cheng Todd PA-C Unavailable Radha Lomeli MACHINE SETTER SHEET METAL ORACLE SQL DEVELOPER Unavailable [phone] Jelena David OD Unavailable Pao Joseph RN Unavailable Unavailable Esha Grimm PA-C Unavailable [phone] Valery Veronica PA-C Unavailable [phone] Rey Tay MD Unavailable Rocky Zepeda DO Unavailable Philip Dumont MD Unavailable [phone] Meredith Carrera PA-C Unavailable Neil [place] MD Unavailable Juan Pablo Emmanuel MD Unavailable [phone] Audrey Waite PA-C Unavailable [phone] Valery Veronica PA-C Unavailable [phone] Herminia Hatch MD Unavailable Encounter Details Date Type Department Care Team (Late st Contact Info) Description 01/22/2022 [facility] Medical Advice [address] [address] Diana Desir, [facility] [address] [place] [address] Social History Tobacco Use Types Packs/Day Years [...] How often do you attend anglican or orthodox serv ices? Never 09/22/2021 Do [...] Answer Date Recorded PHQ-2 Score 2 12/18/2021 [facility] Occupat ional Health [...] in a assisted (including now)? No 09/22/2021 [place] Depression Scale Answer Date Recorded [place] Depression Score 5 01/14/2021 Last EPDS Self Harm Result Not on file 01/14 Education Answer Date Recorded What is the highest level of school you have completed or the highest degree you have received? 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 MICROSTRATEGY ARCHITECT DEVELOPER Gender Identity Female 03/02/2021 5:45 PM [...] AM CDT Office Visit [facility] [address], [address] [place] [address] [place] [address] [address] [place] [phone] Johnny Penn MD [address] [place] [id number] 11/28/2024 7:45 AM CDT Virtual Visit [facility] [address] [place] [phone] Meredith Carrera PA-C 909 [place] [address] documented as of this encounter Visit Diagnoses Not on filedocumented in this encounter Additional Health Concerns Infection Onset Date Last Indicated Resolved Time Rule Out COVID-19 02/24/2022 02/24/2022 02/25/2022 1:08 PM CDT Rule Out COVID-19 04/26/2022 04/26/2022 04/26/2022 6:47 AM CDT Rule Out COVID-19 05/17/2022 05/17/2022 05/17/2022 10:20 PM MICROSTRATEGY ARCHITECT DEVELOPER Rule Out COVID-19 06/09/2022 06/09/2022 06/09/2022 9:35 AM MICROSTRATEGY ARCHITECT DEVELOPER COVID-19 06/09/2022 06/09/2022 06/30/2022 11:4 1 PM MICROSTRATEGY ARCHITECT DEVELOPER Rule Out COVID-19 11/10/2022 11/10/2022 11/11/2022 12:17 PM CDT Rule Out COVID-19 03/07/2023 03/07/2023 03/07/2023 1:20 PM CDT Rule Out COVID-19 12/26/2023 12/26/2023 12/26/2023 9:50 AM CDT Rule Out COVID-19 04/09/2024 04/09/2024 04/10/2024 6:48 PM CDT Assessment Noted Time PHQ-9 Depression Total Score: 2 12/19/19 22 2:50 PM CDT documented as of this encounter Care Teams Bi Architect Relationship Specialty Start Date End Date Marija Edgar APRN ORACLE SQL DEVELOPER PCP - General Nurse Practitioner 04/30/20 04/14/23 Esha Grimm PA-C [address] [place] [phone] PCP - General Family Medicine 05/04/23 Lita Oseguera Personal Advocate & Liaison (PAL) 02/28/20 03/27/23 Marija Edgar APRN ORACLE SQL DEVELOPER Assigned PCP 06/08/20 04/29/23 Keisha Dotson MD 909 [place], [place] 508415 Assigned Neuroscience Provider 06/04/20 04/01/23 Galo Burrell MD Assigned Heart and Vascular Provider 10/05/20 04/02/22 [facility] [address] [place] [address] Pharmacist Pharmacist 04/17/21 Rain Galaviz PA-C [address] [place] [address] [place] [address] Physician Childcare Administrator Dermatology 04/28/21 Summer Lara MD [address] [place], [place] 992134 Assigned OBGYN Provider 05/31/21 2 Tavia Wyatt MD [address] [place], [place] 8265[address] Dermatology 07/14/21 Johnny Murillo MD [facility] [address] [place] [address] Assigned Musculoskeletal Provider 08/30/21 03/17/22 Erica Farrell APRN ORACLE SQL DEVELOPER 6405 [facility] [address] [place] [address] Nurse Practitioner Cardiovascular Disease 09/09/21 Tavia Wyatt MD [address] [place] [address] Assigned Surgical Provider 11/29/21 05/07/22 Diana Desir, [facility] [address] [place] [address] Assigned MTM Pharmacist 01/02/22 Rich Barrett MD [address] 426905 Physician Ophthalmology 01/21/22 Neil Kent MD 500 [place], [place] 7[address]05 Dermatology 02/24/22 Roney Story DPM [address] [facility] [address] [place] [address] Assigned Musculoskeletal Provider 03/20/22 08/13/22 Erica Farrell APRN ORACLE SQL DEVELOPER 1700 [place] [address] Assigned Heart and Vascular Provider 04/03/22 04/16/22 Diana Desir, [facility] [address] [place] [address] Assigned MTM Pharmacist 04/07/22 Jelena David OD [address] [facility] [place] [address] Assigned Surgical Provider 05/08/22 10/08/22 Galo Burrell MD Assigned Heart and Vascular Provider 04/17/22 06/11/22 Livan Sharif MD [address], [facility] [address] [place], [place] [address] Cardiovascular Disease 05/14/22 Livan Sharif MD [address], [facility] [address] [place] [address] Assigned Heart and Vascular Provider 06/12/22 07/23/22 Catherine Cm MD [address] [facility] [place] [address] Cardiovascular Disease 07/21/22 Valery Veronica, PA-C [address] [place] [address] Physician Childcare Administrator Dermatology 07/21/22 Catherine Cm MD [address] [facility] [place] [address] Assigned Heart and Vascular Provider 07/24/22 11/05/22 Johnny Murillo MD [facility] [address] [address] Assigned Musculoskeletal Provider 08/14/22 10/08/22 Brea Quinn APRN ORACLE SQL DEVELOPER [address] [place] [address] [place] [address] Nurse Practitioner Dermatology 09/21/22 Brea Quinn APRN ORACLE SQL DEVELOPER 6401 [facility] [place] [address] Assigned Surgical Provider 10/09/22 05/01/24 [place] [address] [address] [facility] [address] [place] [address] Assigned Musculoskeletal Provider 10/09/22 05/01/24 Livan Sharif MD [address] [facility] [address] [place] [address] Assigned Heart and Vascular Provider 11/06/22 11/12/22 Catherine Cm MD [address] [facility] [place] 979775 Assigned Heart and Vascular Provider 11/13/22 05/27/23 Sydnie Martinez, VJ Personal Advocate & Liaison (PAL) Family Medicine 03/28/23 07/31/23 Alfonso Renteria MD 5775 [facility] 200 [place] [address] Assigned Neuroscience Provider 04/02/23 Cheng Todd PA-C [address] [place] [address] Assigned PCP 04/30/23 07/15/23 Radha Lomeli APRN ORACLE SQL DEVELOPER [address] [place] [address] Assigned Heart and Vascular Provider 05/28/23 Jelena David OD [address] [facility] [place] [address] MD Ophthalmology 06/15/23 Pao Joseph, RN Personal Advocate & Liaison (PAL) Nurse 08/01/23 11/07/23 Esha Grimm PA-C [address] [place] [address] Assigned PCP 07/16/23 Valery Veronica PA-C [address] [place] [address] 701895 Physician Childcare Administrator Dermatology 09/19/23 Rey Tay MD [address] [place] [address] Gastroenterology 09/20/23 Rocky Zepeda DO [address] [place] [address] 839865 Physician Gastroenterology 09/20/23 Philip Dumont MD [address] [place] [address] 004395 Physician Ophthalmology 09/22/23 Meredith Carrera PA-C [address] [place] [address] 425555 Assigned Gastroenterology Provider 11/01/23 Neil Kent MD [address] 6068[address] Dermatology 11/02/23 [place] [address] [address] Neurological Surgery 12/26/23 Audrey Waite PA-C 500 [place] [address] Physician Childcare Administrator Dermatology 02/28/24 Valery Veronica PA-C [address] [place] [address] Physician Childcare Administrator Dermatology 04/10/24 Herminia Hatch MD [facility]5 [place], [place] [address] Assigned Rheumatology Provider 07/02/24 documented as of this encounter
--- OUTSIDE RECORDS SUMMARY | 2024-07-22 22:46 | XMS_ITS | Encounter Summary ---
Author Organization [place] Address [address] [place] [address] Care Team Providers Care Edge Inker Heels Name Role Phone Lita Oseguera Unavailable Unavailable Marija Edgar APRN LEARNING TECHNOLOGIES SPECIALIST Primary Care Provider + Marija Edgar APRN LEARNING TECHNOLOGIES SPECIALIST Unavailable [phone] Mynor Broussard MD Unavailable [phone] Keisha Dotson MD Unavailable Galo Burrell MD Unavailable Unavailable Diana Desir [facility] Unavailable Rain Galaviz PA-C Unavailable Summer Lara MD Unavailable [phone] Tavia Wyatt MD Unavailable Johnny Murillo MD Unavailable Erica Farrell APRN LEARNING TECHNOLOGIES SPECIALIST Unavailable Tavia Wyatt MD Unavailable Diana Desir [facility] Unavailable Rich Barrett MD Unavailable [phone] Neil Kent MD Unavailable Roney Story DPM Unavailable Erica Farrell DIRECTOR CLINICAL DATA LEARNING TECHNOLOGIES SPECIALIST Unavailable Diana Desir [facility] Unavailable Jelena David OD Unavailable Galo Burrell MD Unavailable Unavailable Livan Sharif MD Unavailable Livan Sharif MD Unavailable Catherine Cm MD Unavailable + Valery Veronica PA-C Unavailable [phone] Catherine Cm MD Unavailable + Johnny Murillo MD Unavailable [phone] Brea Quinn DIRECTOR CLINICAL DATA LEARNING TECHNOLOGIES SPECIALIST Unavailable [phone] Brea Quinn DIRECTOR CLINICAL DATA LEARNING TECHNOLOGIES SPECIALIST Unavailable [phone] Jose Francisco Johnson MD Unavailable Livan Sharif MD Unavailable + IsCatherine hobbs MD Unavailable + Sydnie Martinez RN Unavailable Unavailable Alfonso Renteria MD Unavailable Esha Grimm PA-C Primary Care Provider Cheng Todd PA-C Unavailable Radha Lomeli DIRECTOR CLINICAL DATA LEARNING TECHNOLOGIES SPECIALIST Unavailable [phone] Jelena David OD Unavailable Pao Joseph RN Unavailable Unavailable Esha Grimm PA-C Unavailable [phone] Valery Veronica PA-C Unavailable [phone] Rey Tay MD Unavailable Rocky Zepeda DO Unavailable Philip Dumont MD Unavailable Meredith Carrera PA-C Unavailable [phone] Neil Kent MD Unavailable Juan Pablo Emmanuel MD Unavailable [phone] Audrey Waite PA-C Unavailable [phone] Valery Veronica PA-C Unavailable [phone] Herminia Hatch MD Unavailable Encounter Details Date Type Department Care Team (Late st Contact Info) Description 11/16/2021 [facility] Medical Advice [address] [address] [facility] [address] [place] [address] Social History Tobacco Use Types Packs/Day Years [...] How often do you attend mormon or restorationism serv ices? Never 09/22/2021 Do [...] in a residential (including now)? No 09/22/2021 Ruffin Depression Scale Answer Date Recorded Ruffin Depression Score 5 01/14/2021 Last EPDS Self Harm Result Not on file 01/14 Education Answer Date Recorded What is the highest level of school you have completed or the highest degree you have received? 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 DIET TECH Gender Identity Female 03/02/2021 5:45 PM [...] Visit [facility] Neurology [address], [address] [place] [address] [place] [address] [address] [place] [address] Johnny Penn MD [address] [place] [id number] 11/28/2024 7:45 AM CDT Virtual Visit [facility] Gastroenterology Clinic [address] 4th [place] [phone] Meredith Carrera PA-C [address] [place] [address] documented as of this encounter Visit Diagnoses Not on filedocumented in this encounter Additional Health Concerns Infection Onset Date Last Indicated Resolved Time Rule Out COVID-19 12/18/2021 12/18/2021 12/19/2021 11:34 AM CDT Rule Out COVID-19 02/24/2022 02/24/2022 02/25/2022 1:08 PM CDT Rule Out COVID-19 04/26/2022 04/26/2022 04/26/2022 6:47 AM CDT Rule Out COVID-19 05/17/2022 05/17/2022 05/17/2022 10:20 PM DIET TECH Rule Out COVID-19 06/09/2022 06/09/2022 06/09/2022 9:35 AM DIET TECH COVID-19 06/09/2022 06/09/2022 06/30/2022 11:4 1 PM DIET TECH Rule Out COVID-19 11/10/2022 11/10/2022 11/11/2022 12:17 PM CDT Rule Out COVID-19 03/07/2023 03/07/2023 03/07/2023 1:20 PM CDT Rule Out COVID-19 12/26/2023 12/26/2023 12/26/2023 9:50 AM CDT Rule Out COVID-19 04/09/2024 04/09/2024 04/10/2024 6:48 PM CDT Assessment Noted Time PHQ-9 Depression Total Score: 2 04/02/20 21 10:19 AM CDT documented as of this encounter Care Teams Edge Inker Heels Relationship Specialty Start Date End Date Marija Edgar APRN CNP PCP - General Nurse Practitioner 04/30/20 04/14/23 Esha Grimm PA-C [address] [place] [address] PCP - General Family Medicine 05/04/23 Lita Oseguera Personal Advocate & Liaison (PAL) 02/28/20 03/27/23 Marija Edgar APRN LEARNING TECHNOLOGIES SPECIALIST Assigned PCP 06/08/20 04/29/23 Mynor Broussard MD 6363 [facility] 500 [place], [place] 541245 Assigned Surgical Provider 06/01/20 11/28/21 Keisha Dotson MD 909 [place], [place] 421245 Assigned Neuroscience Provider 06/04/20 04/01/23 Galo Burrell MD Assigned Heart and Vascular Provider 10/05/20 04/02/22 Diana Desir, [facility] [address] [place] [address] Pharmacist Pharmacist 04/17/21 Rain Galaviz PA-C [address] [facility] [address] [place] [address] Physician Manager Insurance Dermatology 04/28/21 Summer Lara MD [address] [place] [address] Assigned OBGYN Provider 05/31/21 2 Tavia Wyatt MD [address] [place] [address] Dermatology 07/14/21 Johnny Murillo MD [address] [place] [address] Assigned Musculoskeletal Provider 08/30/21 03/17/22 Erica Farrell APRN LEARNING TECHNOLOGIES SPECIALIST [address] [facility] [address] [place] [address] Nurse Practitioner Cardiovascular Disease 09/09/21 Tavia Wyatt MD [address] [place] [address] Assigned Surgical Provider 11/29/21 05/07/22 [facility] 3033 [place] [address] Assigned MTM Pharmacist 01/02/22 Rich Barrett MD 516 [facility] 9A [place], [place] [address] Physician Ophthalmology 01/21/22 Neil Kent MD 500 [place], [place] [address] Dermatology 02/24/22 Roney Story DPM 86703 [facility] 300 [place] [address] Assigned Musculoskeletal Provider 03/20/22 08/13/22 Erica Farrell APRN LEARNING TECHNOLOGIES SPECIALIST 1700 [place] [address] Assigned Heart and Vascular Provider 04/03/22 04/16/22 Diana Desir, [facility] [address] [place] [address] Assigned MTM Pharmacist 04/07/22 Jelena David OD [address] [place] [address] Assigned Surgical Provider 05/08/22 10/08/22 Galo Burrell MD Assigned Heart and Vascular Provider 04/17/22 06/11/22 Livan Sharif MD [address] [place] [address] Cardiovascular Disease 05/14/22 Livan Sharif MD [address] [place] [address] Assigned Heart and Vascular Provider 06/12/22 07/23/22 Catherine Cm MD [address] [place] [address] Cardiovascular Disease 07/21/22 Valery Veronica PA-C 909 [place], [place] 79[address] Physician Manager Insurance Dermatology 07/21/22 Catherine Cm MD [address] [place] [address]145[address] Assigned Heart and Vascular Provider 07/24/22 11/05/22 Johnny Murillo MD [facility] [address] Assigned Musculoskeletal Provider 08/14/22 10/08/22 Brea Quinn APRN LEARNING TECHNOLOGIES SPECIALIST 500 [place] [address] Nurse Practitioner Dermatology 09/21/22 Brea Quinn APRN LEARNING TECHNOLOGIES SPECIALIST 6401 [place] [address] Assigned Surgical Provider 10/09/22 05/01/24 [place] [address] [facility] 300 [place] [address] Assigned Musculoskeletal Provider 10/09/22 05/01/24 Livan Sharif MD 6405 [facility] , [facility] [address] [place] [address] Assigned Heart and Vascular Provider 11/06/22 11/12/22 Catherine Cm MD 6405 [facility] [address] [place] [address] Assigned Heart and Vascular Provider 11/13/22 05/27/23 Sydnie Martinez, RN Personal Advocate & Liaison (PAL) Family Medicine 03/28/23 07/31/23 Alfonso Renteria MD 5775 [facility] 200 [place], [place] [address] Assigned Neuroscience Provider 04/02/23 Cheng Todd PA-C [address] [place] [address] [id number] Assigned PCP 04/30/23 07/15/23 Radha Lomeli APRN LEARNING TECHNOLOGIES SPECIALIST 6405 [facility] [address] [place] [address] Assigned Heart and Vascular Provider 05/28/23 Jelena David OD [address] [place] [address] MD Ophthalmology 06/15/23 Pao Joseph, VJ Personal Advocate & Liaison (PAL) Nurse 08/01/23 11/07/23 Esha Grimm PA-C [address] [place] [address] Assigned PCP 07/16/23 Valery Veronica PA-C [address] [place] [address] Physician Manager Insurance Dermatology 09/19/23 Rey Tay MD [address] [place] [address] Gastroenterology 09/20/23 Rocky Zepeda DO [address] [place] [address] Physician Gastroenterology 09/20/23 Philip Dumont MD [address] [place] [address] 285275 Physician Ophthalmology 09/22/23 Meredith Carrera PA-C 909 [place], [place] [address] Assigned Gastroenterology Provider 11/01/23 Neil Kent MD [address] 693580 Dermatology 11/02/23 [place] [address] [id number] Neurological Surgery 12/26/23 Audrey [place] PA-C [address] [place] [address] 288275 Physician Manager Insurance Dermatology 02/28/24 Valery Veronica PA-C 480601 [place], [place] [address] Physician Manager Insurance Dermatology 04/10/24 Herminia Hatch MD [facility]5 [place], [place] [address] Assigned Rheumatology Provider 07/02/24 documented as of this encounter
--- OUTSIDE RECORDS SUMMARY | 2024-07-22 22:46 | XMS_ITS | Encounter Summary ---
Author Organization [place] Address [address] [place] [address] Care Team Providers Care Aws Software Development Engineer Name Role Phone Lita Oseguera Unavailable Unavailable Marija Edgar APRN REGENERATION OPERATOR Primary Care Provider + Marija Edgar APRN REGENERATION OPERATOR Unavailable [phone] Mynor Broussard MD Unavailable [phone] Keisha Dotson MD Unavailable Galo Burrell MD Unavailable Unavailable Diana Desir [facility] Unavailable Rain Galaviz PA-C Unavailable Summer Lara MD Unavailable [phone] Tavia Wyatt MD Unavailable Johnny Murillo MD Unavailable [phone] Erica Farrell APRN REGENERATION OPERATOR Unavailable Tavia Wyatt MD Unavailable Diana Desir [facility] Unavailable [phone] Rich Barrett MD Unavailable [phone] Neil Kent MD Unavailable Roney Story DPM Unavailable Erica Farrell POLE SANDER OPERATOR REGENERATION OPERATOR Unavailable Diana Desir [facility] Unavailable Jelena David OD Unavailable [phone] Galo Burrell MD Unavailable Unavailable Livan Sharif MD Unavailable Livan Sharif MD Unavailable Catherine Cm MD Unavailable + Valery Veronica PA-C Unavailable [phone] Catherine Cm MD Unavailable + Johnny Murillo MD Unavailable [phone] Brea Quinn POLE SANDER OPERATOR REGENERATION OPERATOR Unavailable [phone] Brea Quinn POLE SANDER OPERATOR REGENERATION OPERATOR Unavailable [phone] Jose Francisco Johnson MD Unavailable Livan Sharif MD Unavailable + IsCatherine hobbs MD Unavailable + Sydnie Martinez RN Unavailable Unavailable Alfonso Renteria MD Unavailable Esha Grimm PA-C Primary Care Provider Cheng Todd PA-C Unavailable Radha Lomeli POLE SANDER OPERATOR REGENERATION OPERATOR Unavailable [phone] Jelena David OD Unavailable Pao Joseph RN Unavailable Unavailable Esha Grimm PA-C Unavailable [phone] Valery Veronica PA-C Unavailable [phone] Rey Tay MD Unavailable Rocky Zepeda DO Unavailable Philip Dumont MD Unavailable Byron Carreranahed DOWC Unavailable [phone] Neil Kent MD Unavailable Juan Pablo Emmanuel MD Unavailable [phone] Audrey Waite PA-C Unavailable [phone] Valery Veronica PA-C Unavailable [phone] Herminia Hatch MD Unavailable Encounter Details Date Type Department Care Team (Late st Contact Info) Description 10/28/2021 MyC Medical Advice [facility] Heart [address] [place] [address] Erica Farrell APRN [facility] 1700 [place], [place] [phone] Social History Tobacco Use Types Packs/Day Years [...] How often do you attend nondenominational or islam serv ices? Never 09/22/2021 Do [...] in a long-term (including now)? No 09/22/2021 Eldorado Depression Scale Answer Date Recorded Eldorado Depression Score 5 01/14/2021 Last EPDS Self Harm Result Not on file 01/14 Education Answer Date Recorded What is the highest level of school you have completed or the highest degree you have received? 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 BEAD MACHINE OPERATOR Gender Identity Female 03/02/2021 5:45 [...] [facility] - [address], [address] [place] [address] [place] [address] [address] [place] [address] Johnny Penn MD [address] [place] [address] 11/28/2024 7:45 AM CDT Virtual Visit [facility] Gastroenterology Clinic [address] 4th [place] [address] Meredith Carrera PA-C [address] [place] [address] documented as of this encounter Visit Diagnoses Not on filedocumented in this encounter Additional Health Concerns Infection Onset Date Last Indicated Resolved Time Rule Out COVID-19 12/18/2021 12/18/2021 12/19/2021 11:34 AM CDT Rule Out COVID-19 02/24/2022 02/24/2022 02/25/2022 1:08 PM CDT Rule Out COVID-19 04/26/2022 04/26/2022 04/26/2022 6:47 AM CDT Rule Out COVID-19 05/17/2022 05/17/2022 05/17/2022 10:20 PM BEAD MACHINE OPERATOR Rule Out COVID-19 06/09/2022 06/09/2022 06/09/2022 9:35 AM BEAD MACHINE OPERATOR COVID-19 06/09/2022 06/09/2022 06/30/2022 11:4 1 PM BEAD MACHINE OPERATOR Rule Out COVID-19 11/10/2022 11/10/2022 11/11/2022 12:17 PM CDT Rule Out COVID-19 03/07/2023 03/07/2023 03/07/2023 1:20 PM CDT Rule Out COVID-19 12/26/2023 12/26/2023 12/26/2023 9:50 AM CDT Rule Out COVID-19 04/09/2024 04/09/2024 04/10/2024 6:48 PM CDT Assessment Noted Time PHQ-9 Depression Total Score: 2 04/02/20 21 10:19 AM CDT documented as of this encounter Care Teams Aws Software Development Engineer Relationship Specialty Start Date End Date Marija Edgar APRN CNP PCP - General Nurse Practitioner 04/30/20 04/14/23 Esha Grimm PA-C [address] [place] [address] PCP - General Family Medicine 05/04/23 Lita Oseguera Personal Advocate & Liaison (PAL) 02/28/20 03/27/23 Marija Edgar APRN REGENERATION OPERATOR Assigned PCP 06/08/20 04/29/23 Mynor Broussard MD 6363 [facility] 500 [place], [place] [address]6585 Assigned Surgical Provider 06/01/20 11/28/21 Keisha Dotson MD 909 [place], [place] [address] Assigned Neuroscience Provider 06/04/20 04/01/23 Galo Burrell MD Assigned Heart and Vascular Provider 10/05/20 04/02/22 Diana Desir, [facility] 3033 [place] [address] Pharmacist Pharmacist 04/17/21 Rain Galaviz PA-C [address] [place] [address] [address] [place] [address] Physician Gsa Coordinator Dermatology 04/28/21 Summer Lara MD [address] [place] [address] Assigned OBGYN Provider 05/31/21 2 Tavia Wyatt MD [address] [place] [address] Dermatology 07/14/21 Johnny Murillo MD [address] [place] [address] Assigned Musculoskeletal Provider 08/30/21 03/17/22 Erica Farrell APRN REGENERATION OPERATOR [address] [place] [address] Nurse Practitioner Cardiovascular Disease 09/09/21 Tavia Wyatt MD [address] [place] [address] Assigned Surgical Provider 11/29/21 05/07/22 [facility] 3033 [place] [address] Assigned MTM Pharmacist 01/02/22 Rich Barrett MD 516 [facility] 9A [place], [place] [address] Physician Ophthalmology 01/21/22 Neil Kent MD 500 [place], [place] 3039[address] Dermatology 02/24/22 Roney Story DPM [address] [facility] [address] [place], [place] 12[address] Assigned Musculoskeletal Provider 03/20/22 08/13/22 Erica Farrell APRN REGENERATION OPERATOR 17[address] [place] [address] Assigned Heart and Vascular Provider 04/03/22 04/16/22 Diana Desir, [facility] [address] [place] [address] Assigned MTM Pharmacist 04/07/22 Jelena David OD [address] [facility] [place] [address] Assigned Surgical Provider 05/08/22 10/08/22 Galo Burrell MD Assigned Heart and Vascular Provider 04/17/22 06/11/22 Livan Sharif MD [address] [place] [address] Cardiovascular Disease 05/14/22 Livan Sharif MD [address] [place] [address] Assigned Heart and Vascular Provider 06/12/22 07/23/22 Catherine Cm MD [address] [place] [address] Cardiovascular Disease 07/21/22 Valery Veronica PAUcheC 9 [place] [address] Physician Gsa Coordinator Dermatology 07/21/22 Catherine Cm MD [address] [place] [address] Assigned Heart and Vascular Provider 07/24/22 11/05/22 Johnny Murillo MD [facility] [place] 2106800 [place] [address] Assigned Musculoskeletal Provider 08/14/22 10/08/22 Brea Quinn APRN REGENERATION OPERATOR 500 [place] [address] Nurse Practitioner Dermatology 09/21/22 Brea Quinn APRN REGENERATION OPERATOR 6401 [place] [address] Assigned Surgical Provider 10/09/22 05/01/24 [place] [address] [facility] 300 [place] [address] Assigned Musculoskeletal Provider 10/09/22 05/01/24 Livan Sharif MD [address], [facility] [address] [place] [address] Assigned Heart and Vascular Provider 11/06/22 11/12/22 Catherine Cm MD [address] [facility] [facility] [address] [place] [address] Assigned Heart and Vascular Provider 11/13/22 05/27/23 Sydnie Martinez RN Personal Advocate & Liaison (PAL) Family Medicine 03/28/23 07/31/23 Alfonso Renteria MD [address] [facility] 200 [place] [address] Assigned Neuroscience Provider 04/02/23 Cheng Todd PA-C [address] [place] [address] Assigned PCP 04/30/23 07/15/23 Radha Lomeli APRN REGENERATION OPERATOR 6405 [facility] [address] [place] [address] Assigned Heart and Vascular Provider 05/28/23 Jelena David OD [address] [facility] [place] [address] MD Ophthalmology 06/15/23 Pao Joseph, VJ Personal Advocate & Liaison (PAL) Nurse 08/01/23 11/07/23 Esha Grimm PA-C [address] [place] [address] Assigned PCP 07/16/23 Valery Veronica PA-C [address] [place] [address] Physician Gsa Coordinator Dermatology 09/19/23 Rey Tay MD [address] [place] [address] Gastroenterology 09/20/23 Rocky Zepeda DO [address] [place] [address] 106645 Physician Gastroenterology 09/20/23 Philip Dumont MD [address] [place] [address] 509845 Physician Ophthalmology 09/22/23 Meredith Carrera PA-C [address] [place] [address] Assigned Gastroenterology Provider 11/01/23 Neil Kent MD [address] [address] Dermatology 11/02/23 [place] [address] 1099[address] Neurological Surgery 12/26/23 Audrey Waite PA-C [address] [place] [address] Physician Gsa Coordinator Dermatology 02/28/24 Valery Veronica PA-C 235340 [place], [place] [address] Physician Gsa Coordinator Dermatology 04/10/24 Herminia Hatch MD [facility]5 [place], [place] [address] Assigned Rheumatology Provider 07/02/24 documented as of this encounter
--- OUTSIDE RECORDS SUMMARY | 2024-07-22 22:46 | XMS_ITS | Encounter Summary ---
Author Organization [facility] Address [address] [place] [address] Care Team Providers Care Digital Marketing Program Manager Name Role Phone Lita Oseguera Unavailable Unavailable Marija Edgar APRN WIRE STRANDER Primary Care Provider + Marija Edgar APRN WIRE STRANDER Unavailable [phone] Keisha Dotson MD Unavailable Galo Burrell MD Unavailable Unavailable Diana Desir [facility] Unavailable Rain Galaviz PA-C Unavailable Summer Lara MD Unavailable Tavia Wyatt MD Unavailable Johnny Murillo MD Unavailable Erica Farrell APRN WIRE STRANDER Unavailable Tavia Wyatt MD Unavailable Diana Desir [facility] Unavailable [phone] Rich Barrett MD Unavailable Neil Kent MD Unavailable Roney Story DPM Unavailable [phone] Erica Farrell APRN WIRE STRANDER Unavailable + Diana Desir [facility] Unavailable Jelena David OD Unavailable Galo Burrell MD Unavailable Unavailable HoLivan MD Unavailable Livan Sharif MD Unavailable IskoCatherine boothe MD Unavailable + Valery Veronica PA-C Unavailable [phone] Catherine Cm MD Unavailable + Johnny Murillo MD Unavailable [phone] Brea Quinn LICENSED INSURANCE AGENT WIRE STRANDER Unavailable [phone] Brea Quinn LICENSED INSURANCE AGENT WIRE STRANDER Unavailable [phone] Jose Francisco Johnson MD Unavailable Livan Sharif MD Unavailable + IsCatherine boothe MD Unavailable + Sydnie Martinez RN Unavailable Unavailable Alfonso Renteria MD Unavailable Esha Grimm PA-C Primary Care Provider Cheng Todd PA-C Unavailable Radha Lomeli LICENSED INSURANCE AGENT WIRE STRANDER Unavailable [phone] Jelena David OD Unavailable Pao Joseph RN Unavailable Unavailable Esha Grimm PA-C Unavailable [phone] Valery Veronica PA-C Unavailable [phone] Rey Tay MD Unavailable Rocky Zepeda DO Unavailable Philip Dumont MD Unavailable [phone] Meredith Carrera PA-C Unavailable [phone] Neil Kent MD Unavailable Juan Pablo Emmanuel MD Unavailable [phone] Audrey Waite PA-C Unavailable [phone] Valery Veronica PA-C Unavailable [phone] Herminia Hatch MD Unavailable Encounter Details Date Type Department Care Team (Late st Contact Info) Description 12/03/2021 MyC Medical Advice [facility] [address], [address] [place] [address] Keisha Dotson MD [address] [place] [address] Social History Tobacco Use [...] How often do you attend holiness or sabianism serv ices? Never 09/22/2021 Do [...] Answer Date Recorded PHQ-2 Score 2 09/22/2021 [facility] - Occupational [...] a skilled nursing (including now)? No 09/22/2021 Weyerhaeuser Depression Scale Answer Date Recorded Weyerhaeuser Depression Score 5 01/14/2021 Last EPDS Self Harm Result Not on file 01/14 Education Answer Date Recorded What is the highest level of school you have completed or the highest degree you have received? 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 PHLEBOTOMY SERVICES REPRESENTATIVE Gender Identity Female 03/02/2021 5:45 PM [...] CDT Office Visit [facility] [address] [place] [address] [place] [address] [place] [address] Johnny Penn MD [address] [place] [address] 11/28/2024 7:45 AM CDT Virtual Visit [facility] [address] [place] [address] Meredith Carrera PA-C [address] [place] [address] documented as of this encounter Visit Diagnoses Not on filedocumented in this encounter Additional Health Concerns Infection Onset Date Last Indicated Resolved Time Rule Out COVID-19 12/18/2021 12/18/2021 12/19/2021 11:34 AM CDT Rule Out COVID-19 02/24/2022 02/24/2022 02/25/2022 1:08 PM CDT Rule Out COVID-19 04/26/2022 04/26/2022 04/26/2022 6:47 AM CDT Rule Out COVID-19 05/17/2022 05/17/2022 05/17/2022 10:20 PM PHLEBOTOMY SERVICES REPRESENTATIVE Rule Out COVID-19 06/09/2022 06/09/2022 06/09/2022 9:35 AM PHLEBOTOMY SERVICES REPRESENTATIVE COVID-19 06/09/2022 06/09/2022 06/30/2022 11:4 1 PM PHLEBOTOMY SERVICES REPRESENTATIVE Rule Out COVID-19 11/10/2022 11/10/2022 11/11/2022 12:17 PM CDT Rule Out COVID-19 03/07/2023 03/07/2023 03/07/2023 1:20 PM CDT Rule Out COVID-19 12/26/2023 12/26/2023 12/26/2023 9:50 AM CDT Rule Out COVID-19 04/09/2024 04/09/2024 04/10/2024 6:48 PM CDT Assessment Noted Time PHQ-9 Depression Total Score: 2 04/02/20 10:19 AM CDT documented as of this encounter Care Teams Digital Marketing Program Manager Relationship Specialty Start Date End Date Marija Edgar APRN CNP PCP - General Nurse Practitioner 04/30/20 04/14/23 Esha Grimm PA-C [address] [place] [phone] PCP - General Family Medicine 05/04/23 Lita Oseguera Personal Advocate & Liaison (PAL) 02/28/20 03/27/23 Marija Edgar APRN WIRE STRANDER Assigned PCP 06/08/20 04/29/23 Keisha Dotson MD [address] [place], [place] [phone] Assigned Neuroscience Provider 06/04/20 04/01/23 Galo Burrell MD Assigned Heart and Vascular Provider 10/05/20 04/02/22 [facility] [address] [place] [address] Pharmacist Pharmacist 04/17/21 Rain Galaviz PA-C [address] [place] [address] [place] [address] Physician Computational Sciences Professor Dermatology 04/28/21 Summer Lara MD [address] [place] [address] 522274 Assigned OBGYN Provider 05/31/21 2 Tavia Wyatt MD [address] [place] [address] [phone] Dermatology 07/14/21 Johnny Murillo MD [facility] [place], [place] 264494 Assigned Musculoskeletal Provider 08/30/21 03/17/22 Erica Farrell APRN WIRE STRANDER [address] [facility] T[address] [place] [address] Nurse Practitioner Cardiovascular Disease 09/09/21 Tavia Wyatt MD [address] [place] [address] Assigned Surgical Provider 11/29/21 05/07/22 Diana Desir [facility] [address] [place] [address] Assigned MTM Pharmacist 01/02/22 Rich Barrett MD [address] [address] Physician Ophthalmology 01/21/22 Neil Kent MD 500 [place], [place] 330385 Dermatology 02/24/22 [place] [address] [facility] [address] [place] [address] Assigned Musculoskeletal Provider 03/20/22 08/13/22 Erica Farrell APRN WIRE STRANDER 1700 [place] [address] Assigned Heart and Vascular Provider 04/03/22 04/16/22 Diana Desir [facility] [address] [place] [address] Assigned MTM Pharmacist 04/07/22 Jelena David OD [address] [facility] [place] [address] Assigned Surgical Provider 05/08/22 10/08/22 Galo Burrell MD Assigned Heart and Vascular Provider 04/17/22 06/11/22 Livan Sharif MD [address] [place] 459[address] Cardiovascular Disease 05/14/22 Livan Sharif MD [address] [place] 226395 Assigned Heart and Vascular Provider 06/12/22 07/23/22 Catherine Cm MD [address] [place] 288105 Cardiovascular Disease 07/21/22 Valery Veronica, PAUcheC 909 [place], [place] 022555 Physician Computational Sciences Professor Dermatology 07/21/22 Catherine Cm MD [address] [place] 064625 Assigned Heart and Vascular Provider 07/24/22 11/05/22 Johnny Murillo MD [address] 577[address] Assigned Musculoskeletal Provider 08/14/22 10/08/22 Brea Quinn APRN WIRE STRANDER 500 [place] [address] Nurse Practitioner Dermatology 09/21/22 Brea Quinn APRN WIRE STRANDER [address] [facility] [place] 920542 Assigned Surgical Provider 10/09/22 05/01/24 [place] [address] [facility] [address] [place], [place] 743107 Assigned Musculoskeletal Provider 10/09/22 05/01/24 Livan Sharif MD [address] [facility] [address] [place] [address] Assigned Heart and Vascular Provider 11/06/22 11/12/22 Catherine Cm MD [address] [facility] [place] [address] Assigned Heart and Vascular Provider 11/13/22 05/27/23 Sydnie Martinez RN Personal Advocate & Liaison (PAL) Family Medicine 03/28/23 07/31/23 Alfonso Renteria MD 5775 [facility] 200 [place], [place] 851296 Assigned Neuroscience Provider 04/02/23 Cheng Todd PA-C [address] [place] [address] Assigned PCP 04/30/23 07/15/23 Radha Lomeli APRN WIRE STRANDER 6405 [facility] [address] [place] [address] Assigned Heart and Vascular Provider 05/28/23 eJlena David OD [address] [facility] [place] [address] MD Ophthalmology 06/15/23 Pao Joseph, VJ Personal Advocate & Liaison (PAL) Nurse 08/01/23 11/07/23 Esha Grimm PA-C [address] [place] [phone] Assigned PCP 07/16/23 Valery Veronica PA-C [address] [place] [address] 052765 Physician Computational Sciences Professor Dermatology 09/19/23 Rey Tay MD [address] [place] [address] 906345 Gastroenterology 09/20/23 Rocky Zepeda DO [address] [place] [address] 942815 Physician Gastroenterology 09/20/23 Philip Dumont MD [address] [place] [address] 631665 Physician Ophthalmology 09/22/23 Meredith Carrera PA-C [address] [place] [address] 748965 Assigned Gastroenterology Provider 11/01/23 Neil Kent MD [address] [place] [address] Dermatology 11/02/23 [place] [address] 255447 Neurological Surgery 12/26/23 Audrey Waite PAUcheC 500 [place] [address] Physician Computational Sciences Professor Dermatology 02/28/24 Valery Veronica PAUcheC 421896 [place], [place] [address] Physician Computational Sciences Professor Dermatology 04/10/24 Herminia Hatch MD 1875 [place] [address] Assigned Rheumatology Provider 07/02/24 documented as of this encounter
--- OUTSIDE RECORDS SUMMARY | 2024-07-22 22:46 | XMS_ITS | Encounter Summary ---
Author Organization [facility] Address [address] [place] [address] Care Team Providers Care Piping Drafter Name Role Phone Lita Oseguera Unavailable Unavailable Marija Edgar APRN DEICER FINISHER Primary Care Provider + Marija Edgar APRN DEICER FINISHER Unavailable [phone] Keisha Dotson MD Unavailable Galo Burrell MD Unavailable Unavailable Diana Desir [facility] Unavailable Rain Galaviz PA-C Unavailable Summer Lara MD Unavailable [phone] Tavia Wyatt MD Unavailable Johnny Murillo MD Unavailable [phone] Erica Farrell APRN DEICER FINISHER Unavailable Tavia Wyatt MD Unavailable Diana Desir [facility] Unavailable Rich Barrett MD Unavailable Neil Kent MD Unavailable Roney Story DPM Unavailable [phone] Erica Farrell APRN DEICER FINISHER Unavailable + Diana Desir [facility] Unavailable Jelena David OD Unavailable Galo Burrell MD Unavailable Unavailable HoLivan MD Unavailable Livan Sharif MD Unavailable IskoCatherine boothe MD Unavailable + Valery Veronica PA-C Unavailable [phone] Catherine Cm MD Unavailable + Johnny Murillo MD Unavailable [phone] Brea Quinn SYSTEM DEVELOPER ASSOCIATE MANAGER DEICER FINISHER Unavailable [phone] Brea Quinn SYSTEM DEVELOPER ASSOCIATE MANAGER DEICER FINISHER Unavailable [phone] Jose Francisco Johnson MD Unavailable Livan Sharif MD Unavailable + IsCatherine boothe MD Unavailable + Sydnie Martinez RN Unavailable Unavailable Alfonso Renteria MD Unavailable Esha Grimm PA-C Primary Care Provider Cheng Todd PA-C Unavailable Radha Lomeli SYSTEM DEVELOPER ASSOCIATE MANAGER DEICER FINISHER Unavailable [phone] Jelena David OD Unavailable Pao Joseph RN Unavailable Unavailable Esha Grimm PA-C Unavailable [phone] Valery Veronica PA-C Unavailable [phone] Rey Tay MD Unavailable Rocky Zepeda DO Unavailable Philip Dumont MD Unavailable [phone] Meredith Carrera PA-C Unavailable [phone] Neil Kent MD Unavailable Juan Pablo Emmanuel MD Unavailable [phone] Audrey Waite PA-C Unavailable [phone] Valery Veronica PA-C Unavailable [phone] Herminia Hatch MD Unavailable Encounter Details Date Type Department Care Team (Late st Contact Info) Description 12/18/2021 Telephone [facility] [address] [place] [address] Lauren Claudio PA-C [address] [place] [address] Social History Tobacco Use Types Packs/Day [...] How often do you attend amish or voodoo serv ices? Never 09/22/2021 Do [...] in a mcc (including now)? No 09/22/2021 Buna Depression Scale Answer Date Recorded Buna Depression Score 5 01/14/2021 Last EPDS Self Harm Result Not on file 01/14 Education Answer Date Recorded What is the highest level of school you have completed or the highest degree you have received? 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 FIGURE REFINISHER AND REPAIRER Gender Identity Female 03/02/2021 5:45 [...] be reached at: Home number on file [phone] (home) Best Time: ANYTIME Can we leave a detailed message on this number? YES Call taken on 12/18/2021 at 11:01 AM by Amalia Deluca documented in this encounter Plan of Treatment Upcoming Encounters Date Type Department Care Team (Late st Contact Info) Description 10/23/2024 9:30 AM CDT Office Visit [facility] [place] [address] [facility], [address] [place] [phone] [place] [address] [place], [place] 558667 Johnny Penn MD [address] [place] [address] 11/28/2024 7:45 AM CDT Virtual Visit [facility] [address] 4th [place] [phone] Meredith Carrera PA-C [address] [place] [address] [phone] documented as of this encounter Visit Diagnoses Not on filedocumented in this encounter Additional Health Concerns Infection Onset Date Last Indicated Resolved Time Rule Out COVID-19 12/18/2021 12/18/2021 12/19/2021 11:34 AM CDT Rule Out COVID-19 02/24/2022 02/24/2022 02/25/2022 1:08 PM CDT Rule Out COVID-19 04/26/2022 04/26/2022 04/26/2022 6:47 AM CDT Rule Out COVID-19 05/17/2022 05/17/2022 05/17/2022 10:20 PM FIGURE REFINISHER AND REPAIRER Rule Out COVID-19 06/09/2022 06/09/2022 06/09/2022 9:35 AM FIGURE REFINISHER AND REPAIRER COVID-19 06/09/2022 06/09/2022 06/30/2022 11:4 1 PM FIGURE REFINISHER AND REPAIRER Rule Out COVID-19 11/10/2022 11/10/2022 11/11/2022 [...] Start Date End Date Marija Edgar APRN DEICER FINISHER PCP - General Nurse Practitioner 04/30/20 04/14/23 Esha Grimm PA-C [address] [place] [phone] PCP - General Family Medicine 05/04/23 Lita Oseguera Personal Advocate & Liaison (PAL) 02/28/20 03/27/23 Marija Edgar APRN DEICER FINISHER Assigned PCP 06/08/20 04/29/23 Keisha Dotson MD 909 [place], [place] 552235 Assigned Neuroscience Provider 06/04/20 04/01/23 Galo Burrell MD Assigned Heart and Vascular Provider 10/05/20 04/02/22 Diana Desir, [facility] [address] [place], [place] 604136 Pharmacist Pharmacist 04/17/21 Rain Galaviz PA-C [address] [place] [address] [address] [place] [address] Physician Patient Ombudsperson Dermatology 04/28/21 Summer Lara MD [address] [place] [address] 578114 Assigned OBGYN Provider 05/31/21 2 Tavia Wyatt MD [address] [place] [address] Dermatology 07/14/21 Johnny Murillo MD [address] [address] Assigned Musculoskeletal Provider 08/30/21 03/17/22 Erica Farrell APRN DEICER FINISHER [address] [place] [id number] [place] [address] Nurse Practitioner Cardiovascular Disease 09/09/21 Tavia Wyatt MD [address] [place], [place] 106660 Assigned Surgical Provider 11/29/21 05/07/22 Diana Desir, [facility] [address] [place] [address] Assigned MTM Pharmacist 01/02/22 Rich Barrett MD [address] 737[address] Physician Ophthalmology 01/21/22 Neil Kent MD [address] [place] [address] [phone] Dermatology 02/24/22 [place] [address] [facility] [address] [place], [place] [address]887 Assigned Musculoskeletal Provider 03/20/22 08/13/22 Erica Farrell APRN DEICER FINISHER 1700 [place] [address] Assigned Heart and Vascular Provider 04/03/22 04/16/22 Diana Desir, [facility] [address] [place] [address] Assigned MTM Pharmacist 04/07/22 Jelena David OD [address] [place] [address] Assigned Surgical Provider 05/08/22 10/08/22 Galo Burrell MD Assigned Heart and Vascular Provider 04/17/22 06/11/22 Livan Sharif MD [address] [place] [address] Cardiovascular Disease 05/14/22 Livan Sharif MD [address] [place] [address] Assigned Heart and Vascular Provider 06/12/22 07/23/22 Catherine Cm MD [address] [place] 751695 Cardiovascular Disease 07/21/22 Valery Veronica PA-C 909 [place] [address] Physician Patient Ombudsperson Dermatology 07/21/22 Catherine Cm MD [address] [place] [address] [place] 814365 Assigned Heart and Vascular Provider 07/24/22 11/05/22 Johnny Murillo MD [facility] 603164 Assigned Musculoskeletal Provider 08/14/22 10/08/22 Brea Quinn APRN DEICER FINISHER [address] [place] [address] 793065 Nurse Practitioner Dermatology 09/21/22 Brea Quinn APRN DEICER FINISHER [address] [place] [address] [place] 255572 Assigned Surgical Provider 10/09/22 05/01/24 [place] [address] 992077 Assigned Musculoskeletal Provider 10/09/22 05/01/24 Livan Sharif MD [address] [place] [address] [place] 509245 Assigned Heart and Vascular Provider 11/06/22 11/12/22 Catherine Cm MD [address] [place] [address] [place] 328395 Assigned Heart and Vascular Provider 11/13/22 05/27/23 Sydnie Martinez, VJ Personal Advocate & Liaison (PAL) Family Medicine 03/28/23 07/31/23 Alfonso Renteria MD [address] [facility] [address] [place] [address] Assigned Neuroscience Provider 04/02/23 Cheng Todd PA-C [address] [place] [address] [phone] Assigned PCP 04/30/23 07/15/23 Radha Lomeli APRN DEICER FINISHER [address] [facility] [address] [place] [address] Assigned Heart and Vascular Provider 05/28/23 Jelena David OD [address] [place] [address] Ophthalmology 06/15/23 Pao Joseph RN Personal Advocate & Liaison (PAL) Nurse 08/01/23 11/07/23 Esha Grimm PA-C [address] [place] [address] Assigned PCP 07/16/23 Valery Veronica PA-C [address] [place] [address] 531535 Physician Patient Ombudsperson Dermatology 09/19/23 Rey Tay MD [address] [place] [address] 552235 MD Gastroenterology 09/20/23 Rocky Zepeda DO 500 [place] [address] Physician Gastroenterology 09/20/23 Philip Dumont MD 516 [place] [address] Physician Ophthalmology 09/22/23 Meredith Carrera PA-C 9 [place], [place] 849945 Assigned Gastroenterology Provider 11/01/23 Neil Kent MD [address] 625[address] Dermatology 11/02/23 [place] [address] 507117 Neurological Surgery 12/26/23 Audrey Waite PA-C 500 [place] [address] Physician Patient Ombudsperson Dermatology 02/28/24 Valery Veronica PA-C [address] [place] [address] Physician Patient Ombudsperson Dermatology 04/10/24 Herminia Hatch MD [facility] [place] [address] Assigned Rheumatology Provider 07/02/24 documented as of this encounter
--- OUTSIDE RECORDS SUMMARY | 2024-07-22 22:46 | XMS_ITS | Encounter Summary ---
Author Organization [place] Address [address] [place] [address] Care Team Providers Care Airline Mechanic Name Role Phone Lita Oseguera Unavailable Unavailable Marija Edgar APRN PERSONAL CARE AIDE Primary Care Provider + Marija Edgar APRN PERSONAL CARE AIDE Unavailable [phone] Mynor Broussard MD Unavailable [phone] Keisha Dotson MD Unavailable Galo Burrell MD Unavailable Unavailable Diana Desir [facility] Unavailable Rain Galaviz PA-C Unavailable Summer Lara MD Unavailable [phone] Tavia Wyatt MD Unavailable Johnny Murillo MD Unavailable Erica Farrell APRN PERSONAL CARE AIDE Unavailable Tavia Wyatt MD Unavailable Diana Desir [facility] Unavailable Rich Barrett MD Unavailable [phone] Neil Kent MD Unavailable Roney Story DPM Unavailable Erica Farrell PETROLEUM PRODUCTION ENGINEER PERSONAL CARE AIDE Unavailable Diana Desir [facility] Unavailable Jelena David OD Unavailable [phone] Galo Burrell MD Unavailable Unavailable Livan Sharif MD Unavailable Livan Sharif MD Unavailable Catherine Cm MD Unavailable + Valery Veronica PA-C Unavailable [phone] Catherine Cm MD Unavailable + Johnny Murillo MD Unavailable [phone] Brea Quinn PETROLEUM PRODUCTION ENGINEER PERSONAL CARE AIDE Unavailable [phone] Brea Quinn PETROLEUM PRODUCTION ENGINEER PERSONAL CARE AIDE Unavailable [phone] Jose Francisco Johnson MD Unavailable Livan Sharif MD Unavailable + IsCatherine hobbs MD Unavailable + Sydnie Martinez RN Unavailable Unavailable Alfonso Renteria MD Unavailable Esha Grimm PA-C Primary Care Provider Cheng Todd PA-C Unavailable Radha Lomeli PETROLEUM PRODUCTION ENGINEER PERSONAL CARE AIDE Unavailable [phone] Jelena David OD Unavailable Pao Joseph RN Unavailable Unavailable Esha Grimm PA-C Unavailable [phone] Valery Veronica PA-C Unavailable [phone] Rey Tay MD Unavailable Rocky Zepeda DO Unavailable Philip Dumont MD Unavailable DebiMeredithC Unavailable [phone] Neil Kent MD Unavailable Juan Pablo Emmanuel MD Unavailable [phone] Audrey Waite PA-C Unavailable [phone] Valery Veronica PA-C Unavailable [phone] Herminia Hatch MD Unavailable Reason for Visit * Reason Onset Date Comments Refill Request 10/31/2021 sertraline Encounter Details Date Type Department Care Team (Late st Contact Info) Description 10/31/[address] [address] Marija Edgar APRN PERSONAL CARE AIDE [address] [facility] [place] [address] Refill Request (sertraline) Social History [...] How often do you attend denominational or denominational serv ices? Never 09/22/2021 Do [...] Recorded PHQ-2 Score 2 09/22/2021 [facility] [...] in a assisted (including now)? No 09/22/2021 Wyano Depression Scale Answer Date Recorded Wyano Depression Score 5 01/14/2021 Last EPDS Self Harm Result Not on file 01/14 Education Answer Date Recorded What is the highest level of school you have completed or the highest degree you have received? 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 SMOKEHOUSE WORKER Gender Identity Female 03/02/2021 5:45 PM [...] - 11/02/2021 8:58 AM CDT Approved per [facility] CPA. Diana Desir, PharmD Medication Therapy Management Provider, [facility] Pager: [phone] * Telephone Encounter - Aleyda Scott RN [...] daily. Pt has follow up tomorrow with [facility] pharmacist to continue to work on taper. Appointments in Next Year Nov 03, 2021 3:30 PM Pharmacist Visit with Diana Desir [facility] ([facility] ) [phone] Informed patient that will route refill request [...] can be reached at: Other phone number: [phone] Best Time: ANYTIME Can we leave a detailed message on this number? YES Call taken on 10/31/2021 at 10:31 AM by Amalia Deluca documented in this encounter Plan of Treatment Upcoming Encounters Date Type Department Care Team (Late st Contact Info) Description 10/23/2024 9:30 AM CDT Office Visit [facility] [place] [address] [place] [address], [address] [place] [address] [place] [address] [address] [place] [address] Johnny Penn MD [address] [place] [address] 11/28/2024 7:45 AM CDT Virtual Visit [facility] [place] [address] [place] [address] [address] [place] [address] Meredith Carrera PA-C [address] [place] [address] documented as of this encounter Visit Diagnoses [...] Out COVID-19 05/17/2022 05/17/2022 05/17/2022 10:20 PM SMOKEHOUSE WORKER Rule Out COVID-19 06/09/2022 06/09/2022 06/09/2022 9:35 AM SMOKEHOUSE WORKER COVID-19 06/09/2022 06/09/2022 06/30/2022 11:4 1 PM SMOKEHOUSE WORKER Rule Out COVID-19 11/10/2022 11/10/2022 11/11/2022 12:17 PM CDT Rule Out COVID-19 03/07/2023 03/07/2023 03/07/2023 1:20 PM CDT Rule Out COVID-19 12/26/2023 12/26/2023 12/26/2023 9:50 AM CDT Rule Out COVID-19 04/09/2024 04/09/2024 04/10/2024 6:48 PM CDT Assessment Noted Time PHQ-9 Depression Total Score: 2 04/02/20 10:19 AM CDT documented as of this encounter Care Teams Airline Mechanic Relationship Specialty Start Date End Date Marija Edgar APRN PERSONAL CARE AIDE PCP - General Nurse Practitioner 04/30/20 04/14/23 Esha Grimm PA-C [address] [place] [address] PCP - General Family Medicine 05/04/23 Lita Oseguera Personal Advocate & Liaison (PAL) 02/28/20 03/27/23 Marija Edgar APRN PERSONAL CARE AIDE Assigned PCP 06/08/20 04/29/23 Mynor Broussard MD [address] [address] Assigned Surgical Provider 06/01/20 11/28/21 Keisha Dotson MD 909 [place] [address] Assigned Neuroscience Provider 06/04/20 04/01/23 Galo Burrell MD Assigned Heart and Vascular Provider 10/05/20 04/02/22 Diana Desir, [facility] [address] [place] [address] Pharmacist Pharmacist 04/17/21 Rain Galaviz PA-C [address] [place] [address] [address] [facility] [address] Physician Crusher Feeder Dermatology 04/28/21 Summer Lara MD [address] [place] [address] 563954 Assigned OBGYN Provider 05/31/21 2 Tavia Wyatt MD [address] [place], [place] 257[address] Dermatology 07/14/21 Johnny Murillo MD [address] [place] [address] Assigned Musculoskeletal Provider 08/30/21 03/17/22 Erica Farrell APRN PERSONAL CARE AIDE 6[address] [facility] [address] [place] [address] Nurse Practitioner Cardiovascular Disease 09/09/21 Tavia Wyatt MD [address] [place] [address] Assigned Surgical Provider 11/29/21 05/07/22 Diana Desir, [facility] 30[address] [place] [address] Assigned MTM Pharmacist 01/02/22 Rich Barrett MD [address] [address] Physician Ophthalmology 01/21/22 Neil Kent MD 500 [place], [place] [id number] Dermatology 02/24/22 Roney Story DPM [address] [facility] 300 [place], [place] 023817 Assigned Musculoskeletal Provider 03/20/22 08/13/22 Erica Farrell APRN PERSONAL CARE AIDE 1700 [place] [address] Assigned Heart and Vascular Provider 04/03/22 04/16/22 Diana Desir, [facility] [address] [place] [address] Assigned MTM Pharmacist 04/07/22 Jelena David OD [address] [facility] [place] [place] [address] Assigned Surgical Provider 05/08/22 10/08/22 Galo Burrell MD Assigned Heart and Vascular Provider 04/17/22 06/11/22 Livan Sharif MD [address] [place] [address] Cardiovascular Disease 05/14/22 Livan Sharif MD [address] [place] [address] Assigned Heart and Vascular Provider 06/12/22 07/23/22 Catherine Cm MD [address] [place] 977085 Cardiovascular Disease 07/21/22 Valery Veronica, PAUcehC 909 [place] [address] Physician Crusher Feeder Dermatology 07/21/22 IsCatherine hobbs MD [address] [facility] [place] [address] Assigned Heart and Vascular Provider 07/24/22 11/05/22 Johnny Murillo MD [address] 853234 Assigned Musculoskeletal Provider 08/14/22 10/08/22 Brea Quinn APRN PERSONAL CARE AIDE 500 [place], [place] 294875 Nurse Practitioner Dermatology 09/21/22 Brea Quinn APRN PERSONAL CARE AIDE 6401 [facility] [place] [id number] Assigned Surgical Provider 10/09/22 05/01/24 [place] [address] [place] [address] 626147 Assigned Musculoskeletal Provider 10/09/22 05/01/24 Livan Sharif MD [address] [facility] [place] 278035 Assigned Heart and Vascular Provider 11/06/22 11/12/22 Catherine Cm MD [address] [facility] [place] 697145 Assigned Heart and Vascular Provider 11/13/22 05/27/23 Sydnie Martinez RN Personal Advocate & Liaison (PAL) Family Medicine 03/28/23 07/31/23 Alfonso Renteria MD [address] [facility] [address] [place] [address] Assigned Neuroscience Provider 04/02/23 Cheng Todd PA-C [address] [place] [address] Assigned PCP 04/30/23 07/15/23 Radha Lomeli APRN PERSONAL CARE AIDE [address] [facility] [address] [place], [place] 688295 Assigned Heart and Vascular Provider 05/28/23 Jelena David OD [address] [facility] [place] [place] [address] Ophthalmology 06/15/23 Pao Joseph, VJ Personal Advocate & Liaison (PAL) Nurse 08/01/23 11/07/23 Esha Grimm PA-C [address] [place] [address] Assigned PCP 07/16/23 Valery Veronica PA-C [address] [place] [address] 265165 Physician Crusher Feeder Dermatology 09/19/23 Rey Tay MD [address] [place] [address] 121175 Gastroenterology 09/20/23 Rocky Zepeda DO [address] [place] [address] 062595 Physician Gastroenterology 09/20/23 Philip Dumont MD 516 [place] [address] Physician Ophthalmology 09/22/23 Meredith Carrera PA-C 909 [place] [address] Assigned Gastroenterology Provider 11/01/23 Neil Kent MD [address] [address] Dermatology 11/02/23 [place] [address] 565487 Neurological Surgery 12/26/23 Audrey Waite PA-C [address] [place] [address] Physician Crusher Feeder Dermatology 02/28/24 Valery Veronica PA-C [address] [place] [address] Physician Crusher Feeder Dermatology 04/10/24 Herminia Hatch MD [facility] [place] [address] Assigned Rheumatology Provider 07/02/24 documented as of this encounter
[2024-07-22 22:47] LABS: Blood Urea Nitrogen* 20 mg/dL (5-24); Calcium* 9.4 mg/dL (8.4-10.6); Glucose* 81 mg/dL (60-115)
--- OUTSIDE RECORDS SUMMARY | 2024-07-22 22:47 | XMS_ITS | Encounter Summary ---
Author Organization [place] Address [address] [place] [address] Care Team Providers Care Chief Wharfinger Name Role Phone Lita Oseguera Unavailable Unavailable Marija Edgar APRN BOILER SERVICE TECHNICIAN Primary Care Provider + Marija Edgar APRN BOILER SERVICE TECHNICIAN Unavailable Mynor Broussard MD Unavailable [phone] Keisha Dotson MD Unavailable Galo Burrell MD Unavailable Unavailable Diana Desir [facility] Unavailable [phone] Rain Galaviz PA-C Unavailable Summer Lara MD Unavailable [phone] Tavia Wyatt MD Unavailable Johnny Murillo MD Unavailable Erica Farrell APRN BOILER SERVICE TECHNICIAN Unavailable Teresita Bean [facility] Unavailable Tavia Wyatt MD Unavailable Diana Desir [facility] Unavailable [phone] Rich Barrett MD Unavailable [phone] Neil Kent MD Unavailable Roney Story DPM Unavailable Erica Farrell MANAGER PACU BOILER SERVICE TECHNICIAN Unavailable Thang Diana Stnaislav [facility] Unavailable [place] David OD Unavailable [phone] Galo Burrell MD Unavailable Unavailable Livan Sharif MD Unavailable + Livan Sharif MD Unavailable + Catherine Cm MD Unavailable + Valery Veronica PA-C Unavailable [phone] Catherine Cm MD Unavailable + Johnny Murillo MD Unavailable [phone] Brea Quinn MANAGER PACU BOILER SERVICE TECHNICIAN Unavailable [phone] Brea Quinn MANAGER PACU BOILER SERVICE TECHNICIAN Unavailable [phone] Jose Francisco Johnson MD Unavailable Livan Sharif MD Unavailable + IsCatherine hobbs MD Unavailable + Sydnie Martinez RN Unavailable Unavailable Alfonso Renteria MD Unavailable Esha Grimm-C Primary Care Provider Cheng Todd PA-C Unavailable Radha Lomeli MANAGER PACU BOILER SERVICE TECHNICIAN Unavailable [phone] Jel[place] David OD Unavailable Pao Joseph RN Unavailable Unavailable Esha Grimm-C Unavailable [phone] JeremíasValery damon PA-C Unavailable [phone] Rey Tay MD Unavailable Rocky Zepeda DO Unavailable Philip Dumont MD Unavailable [phone] Meredith CarreraC Unavailable [phone] Neil Kent MD Unavailable Juan Pablo Emmanuel MD Unavailable [phone] Audrey WaiteC Unavailable [phone] Valery Veronica PA-C Unavailable [phone] Herminia Hatch MD Unavailable Encounter Details Date [...] 08/07/2020 How often do you attend [facility] or hoahaoism services? More than 4 [...] in a half-way (including now)? No 08/11/2020 Harrietta Depression Scale Answer Date Recorded Harrietta Depression Score 5 01/14/2021 Last EPDS Self Harm Result Not on file 01/14 Education Answer Date Recorded What is the highest level of school you have completed or the highest degree you have received? 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 CELL TENDER Gender Identity Female 03/02/2021 5:45 PM CDT Sexual Orientation Straight 02/28/2020 12 :51 AM CDT COVID-19 Exposure Response Date Recorded In the last month, have you been in contact with someone who was confirmed or suspected to have Coronavirus / COVID-19? No / Unsure 08/03/2021 2:24 PM CELL TENDER documented as of this encounter Plan of Treatment Upcoming Encounters Date Type Department Care Team (Late st Contact Info) Description 10/23/2024 9:30 AM CDT Office Visit [facility] Neurology [address], [address] [place] [address] [place] [address] [place], [place] [address] Johnny Penn MD 45[address] [facility] [place] [id number] 11/28/2024 7:45 AM CDT Virtual Visit [facility] [address] 4th [place] [address] Meredith Carrera PAUcheC 969 [place] [address] documented as of this encounter Visit Diagnoses Not on filedocumented in this encounter Additional Health Concerns Infection Onset Date Last Indicated Resolved Time COVID-19 07/18/2021 07/18/2021 08/08/2021 11:3 9 PM CELL TENDER Rule Out COVID-19 12/18/2021 12/18/2021 12/19/2021 11:34 AM CDT Rule Out COVID-19 02/24/2022 02/24/2022 02/25/2022 1:08 PM CDT Rule Out COVID-19 04/26/2022 04/26/2022 04/26/2022 6:47 AM CDT Rule Out COVID-19 05/17/2022 05/17/2022 05/17/2022 10:20 PM CELL TENDER Rule Out COVID-19 06/09/2022 06/09/2022 06/09/2022 9:35 AM CELL TENDER COVID-19 06/09/2022 06/09/2022 06/30/2022 11:4 1 PM CELL TENDER Rule Out COVID-19 11/10/2022 11/10/2022 11/11/2022 12:17 PM CDT Rule Out COVID-19 03/07/2023 03/07/2023 03/07/2023 1:20 PM CDT Rule Out COVID-19 12/26/2023 12/26/2023 12/26/2023 9:50 AM CDT Rule Out COVID-19 04/09/2024 04/09/2024 04/10/2024 6:48 PM CDT Assessment Noted Time PHQ-9 Depression Total Score: 2 04/02/20 21 10:19 AM CDT documented as of this encounter Care Teams Chief Wharfinger Relationship Specialty Start Date End Date Marija Edgar APRN CNP PCP - General Nurse Practitioner 04/30/20 04/14/23 Esha Grimm PA-C [address] [place] [address] PCP - General Family Medicine 05/04/23 Lita Oseguera Personal Advocate & Liaison (PAL) 02/28/20 03/27/23 Marija Edgar APRN BOILER SERVICE TECHNICIAN Assigned PCP 06/08/20 04/29/23 Mynor Broussard MD [address] 880615 Assigned Surgical Provider 06/01/20 11/28/21 Keisha Dotson MD 909 [place], [place] 434865 Assigned Neuroscience Provider 06/04/20 04/01/23 Galo Burrell MD Assigned Heart and Vascular Provider 10/05/20 04/02/22 [facility] 3033 [place] [address] Pharmacist Pharmacist 04/17/21 Rain Galaviz PA-C [address] [place] [address] [address] [place] [address] Physician Search Coordinator Dermatology 04/28/21 Summer Lara MD [address] [place] [address] 025444 Assigned OBGYN Provider 05/31/21 2 Tavia Wyatt MD [address] [place] [address] Dermatology 07/14/21 Johnny Murillo MD [address] [place] [address] Assigned Musculoskeletal Provider 08/30/21 03/17/22 Erica Farrell APRN BOILER SERVICE TECHNICIAN 6405 [facility] [address] [place] [address] Nurse Practitioner Cardiovascular Disease 09/09/21 Teresita Bean [facility] [address] [facility] [place], [place] [phone] Pharmacist Pharmacist 09/24/21 09/29/21 Tavia Wyatt MD [address] [place] [address] Assigned Surgical Provider 11/29/21 05/07/22 [facility] 3033 [place] [address] Assigned MTM Pharmacist 01/02/22 Rich Barrett MD 516 [facility] [address] [place], [place] 12[address] Physician Ophthalmology 01/21/22 Neil Kent MD 500 [place], [place] 814095 Dermatology 02/24/22 Roney Story DPM [address] [facility] 300 [place] [address] Assigned Musculoskeletal Provider 03/20/22 08/13/22 Erica Farrell APRN BOILER SERVICE TECHNICIAN 1700 [place] [address] Assigned Heart and Vascular Provider 04/03/22 04/16/22 [facility] 3033 [place] [address] Assigned MTM Pharmacist 04/07/22 Jelena David OD [address] [facility] [place] [address] Assigned Surgical Provider 05/08/22 10/08/22 Galo Burrell MD Assigned Heart and Vascular Provider 04/17/22 06/11/22 Livan Sharif MD [address] [place] [address] Cardiovascular Disease 05/14/22 Livan Sharif MD [address] [place] [address] Assigned Heart and Vascular Provider 06/12/22 07/23/22 Catherine Cm MD [address] [place] 940665 Cardiovascular Disease 07/21/22 Valery Veronica PA-C 909 [place] [address] Physician Search Coordinator Dermatology 07/21/22 Catherine Cm MD [address] [place] [address] [place] [address] Assigned Heart and Vascular Provider 07/24/22 11/05/22 Johnny Murillo MD [address] [place] [address] 661864 Assigned Musculoskeletal Provider 08/14/22 10/08/22 Brea Quinn APRN BOILER SERVICE TECHNICIAN [address] [place] [address] 610995 Nurse Practitioner Dermatology 09/21/22 Brea Quinn APRN BOILER SERVICE TECHNICIAN [address] [place] [address] [place] [address] Assigned Surgical Provider 10/09/22 05/01/24 [place] [address] [place] [address] Assigned Musculoskeletal Provider 10/09/22 05/01/24 Livan Sharif MD [address] [place] [address] [place] [address] Assigned Heart and Vascular Provider 11/06/22 11/12/22 Catherine Cm MD [address] [place] [address] [place] [address] Assigned Heart and Vascular Provider 11/13/22 05/27/23 Sydnie Martinez RN Personal Advocate & Liaison (PAL) Family Medicine 03/28/23 07/31/23 Alfonso Renteria MD [address] [facility] [address] [place] [address] Assigned Neuroscience Provider 04/02/23 Cheng Todd PA-C [address] [place] [address] [id number] Assigned PCP 04/30/23 07/15/23 Radha Lomeli APRN BOILER SERVICE TECHNICIAN 6405 [facility] [address] [place], [place] 8[address] Assigned Heart and Vascular Provider 05/28/23 Jelena David OD [address] [facility] [address] [place] [id number] Ophthalmology 06/15/23 Pao Joseph, VJ Personal Advocate & Liaison (PAL) Nurse 08/01/23 11/07/23 Esha Grimm PA-C [address] [place] [address] Assigned PCP 07/16/23 Valery Veronica PA-C [address] [place] [address] 362165 Physician Search Coordinator Dermatology 09/19/23 Rey Tay MD [address] [place] [address] 692265 Gastroenterology 09/20/23 Rocky Zepeda DO [address] [place] [address] [phone] Physician Gastroenterology 09/20/23 Philip Dumont MD 516 [place] [address] Physician Ophthalmology 09/22/23 Meredith Carrera PA-C [address] [place] [address] 519825 Assigned Gastroenterology Provider 11/01/23 Neil Kent MD [address] 131090 MD Dermatology 11/02/23 [place] [address] 051657 Neurological Surgery 12/26/23 Audrey Waite PA-C 500 [place], [place] 460345 Physician Search Coordinator Dermatology 02/28/24 Valery Veronica PA-C [address] [place] [address] Physician Search Coordinator Dermatology 04/10/24 Herminia Hatch MD 1875 [place] [address] Assigned Rheumatology Provider 07/02/24 documented as of this encounter
--- OUTSIDE RECORDS SUMMARY | 2024-07-22 22:47 | XMS_ITS | Encounter Summary ---
Author Organization [facility] Address [address] [place] [address] Care Team Providers Care Pot Annealer Name Role Phone Lita Oseguera Unavailable Unavailable Marija Edgar APRN OSD CLERK Primary Care Provider + Marija Edgar APRN OSD CLERK Unavailable Mynor Broussard MD Unavailable [phone] Keisha Dotson MD Unavailable [phone] Galo Burrell MD Unavailable Unavailable Diana Desir [facility] Unavailable Rain Galaviz PA-C Unavailable Summer Lara MD Unavailable [phone] Tavia Waytt MD Unavailable Johnny Murillo MD Unavailable Erica Farrell APRN OSD CLERK Unavailable Teresita Bean [facility] Unavailable [phone] Tavia Wyatt MD Unavailable Diana Desir [facility] Unavailable Rich Barrett MD Unavailable [phone] Neil Kent MD Unavailable Roney Story DPM Unavailable Eirca Farrell LACE SEWER OSD CLERK Unavailable Thang Diana Stanislav [facility] Unavailable Jelena David OD Unavailable Galo Burrell MD Unavailable Unavailable Livan Sharif MD Unavailable + Livan Sharif MD Unavailable + Catherine Cm MD Unavailable + Valery Veronica PA-C Unavailable [phone] Catherine Cm MD Unavailable + Johnny Murillo MD Unavailable [phone] Brea Quinn LACE SEWER OSD CLERK Unavailable [phone] Brea Quinn LACE SEWER OSD CLERK Unavailable [phone] Jose Francisco Johnson MD Unavailable Livan Sharif MD Unavailable + IsCatherine hobbs MD Unavailable + Sydnie Martinez RN Unavailable Unavailable Alfonso Renteria MD Unavailable Esha Grimm-C Primary Care Provider Cheng Todd PA-C Unavailable Radha Lomeli LACE SEWER OSD CLERK Unavailable [phone] Jelena David OD Unavailable Pao Joseph RN Unavailable Unavailable Esha Grimm-C Unavailable [phone] JeremíasValery damon PA-C Unavailable [phone] Rey Tay MD Unavailable Rocky Zepeda DO Unavailable Philip Dumont MD Unavailable [phone] Meredith CarreraC Unavailable [phone] Neil Kent MD Unavailable Juan Pablo Emmanuel MD Unavailable [phone] Audrey WaiteC Unavailable [phone] Valery Veronica PA-C Unavailable [phone] Herminia Hatch MD Unavailable Encounter Details Date [...] you attend [facility] or [facility] services? More than 4 times [...] in a mcc (including now)? No 08/11/2020 [place] Depression Scale Answer Date Recorded [place] Depression Score 5 01/14/2021 Last EPDS Self Harm Result Not on file 01/14 Education Answer Date Recorded What is the highest level of school you have completed or the highest degree you have received? 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 DIRECTOR FOOD SAFETY Gender Identity Female 03/02/2021 5:45 PM CDT Sexual Orientation Straight 02/28/2020 12 :51 AM CDT COVID-19 Exposure Response Date Recorded In the last month, have you been in contact with someone who was confirmed or suspected to have Coronavirus / COVID-19? No / Unsure 09/02/2021 12:26 PM DIRECTOR FOOD SAFETY documented as of this encounter Plan of Treatment Upcoming Encounters Date Type Department Care Team (Late st Contact Info) Description 10/23/2024 9:30 AM CDT Office Visit [facility] Neu[facility] [address], [address] [place] [address] [place] [address] [place], [place] [address] Johnny Penn MD [address] [facility] [place] [id number] 11/28/2024 7:45 AM CDT Virtual Visit [facility] [address] 4th [place] [address] Meredith Carrera PAUcheC [address]39 [place] [address] documented as of this encounter Visit Diagnoses Not on filedocumented in this encounter Additional Health Concerns Infection Onset Date Last Indicated Resolved Time Rule Out COVID-19 12/18/2021 12/18/2021 12/19/2021 11:34 AM CDT Rule Out COVID-19 02/24/2022 02/24/2022 02/25/2022 1:08 PM CDT Rule Out COVID-19 04/26/2022 04/26/2022 04/26/2022 6:47 AM CDT Rule Out COVID-19 05/17/2022 05/17/2022 05/17/2022 10:20 PM DIRECTOR FOOD SAFETY Rule Out COVID-19 06/09/2022 06/09/2022 06/09/2022 9:35 AM DIRECTOR FOOD SAFETY COVID-19 06/09/2022 06/09/2022 06/30/2022 11:4 1 PM DIRECTOR FOOD SAFETY Rule Out COVID-19 11/10/2022 11/10/2022 11/11/2022 12:17 PM CDT Rule Out COVID-19 03/07/2023 03/07/2023 03/07/2023 1:20 PM CDT Rule Out COVID-19 12/26/2023 12/26/2023 12/26/2023 9:50 AM CDT Rule Out COVID-19 04/09/2024 04/09/2024 04/10/2024 6:48 PM CDT Assessment Noted Time PHQ-9 Depression Total Score: 2 04/02/20 21 10:19 AM CDT documented as of this encounter Care Teams Pot Annealer Relationship Specialty Start Date End Date Marija Egdar APRN CNP PCP - General Nurse Practitioner 04/30/20 04/14/23 Esha Grimm PA-C [address] [place] [phone] PCP - General Family Medicine 05/04/23 Lita Oseguera Personal Advocate & Liaison (PAL) 02/28/20 03/27/23 Marija Edgar APRN CNP Assigned PCP 06/08/20 04/29/23 Mynor Broussard MD [address] [address] Assigned Surgical Provider 06/01/20 11/28/21 Keisha Dotson MD [address] [place], [place] 479[address] Assigned Neuroscience Provider 06/04/20 04/01/23 Galo Burrell MD Assigned Heart and Vascular Provider 10/05/20 04/02/22 Diana Desir, [facility] [address] [place], [place] [address] Pharmacist Pharmacist 04/17/21 Rain Galaviz PA-C [address] [place] [address] [address] [place] [address] Physician Generating Plant Superintendent Dermatology 04/28/21 Summer Lara MD [address], [place] 809124 Assigned OBGYN Provider 05/31/21 2 Tavia Wyatt MD [address], [place] 04[address] Dermatology 07/14/21 Johnny Murillo MD [address] [place] [address] Assigned Musculoskeletal Provider 08/30/21 03/17/22 Erica Farrell APRN OSD CLERK [address] [facility] [address] [place] [address] Nurse Practitioner Cardiovascular Disease 09/09/21 Teresita Bean, [facility] [address] [place] [phone] Pharmacist Pharmacist 09/24/21 09/29/21 Tavia Wyatt MD [address] [place] [address] Assigned Surgical Provider 11/29/21 05/07/22 [facility] [address] [place], [place] 432386 Assigned MTM Pharmacist 01/02/22 Rich Barrett MD [address] [facility] [address] [place], [place] [phone] Physician Ophthalmology 01/21/22 Neil Kent MD 500 [place], [place] [phone] Dermatology 02/24/22 Roney Story DPM [address] [facility] [address] [place], [place] 13[address] Assigned Musculoskeletal Provider 03/20/22 08/13/22 Erica Farrell APRN OSD CLERK 1700 [place] [address] Assigned Heart and Vascular Provider 04/03/22 04/16/22 Diana Desir, [facility] [address] [place] [address] Assigned MTM Pharmacist 04/07/22 Jelena David OD [address] [facility] [place] [address] Assigned Surgical Provider 05/08/22 10/08/22 Galo Burrell MD Assigned Heart and Vascular Provider 04/17/22 06/11/22 Livan Sharif MD [address] [place] [address] Cardiovascular Disease 05/14/22 Livan Sharif MD [address] [place] [address] Assigned Heart and Vascular Provider 06/12/22 07/23/22 Catherine Cm MD [address] [place] [address] Cardiovascular Disease 07/21/22 Valery Veronica PA-C 909 [place] [address] Physician Generating Plant Superintendent Dermatology 07/21/22 Catherine Cm MD [address] [facility] [address] [place] [address] Assigned Heart and Vascular Provider 07/24/22 11/05/22 Johnny Murillo MD [address] [place] [address] Assigned Musculoskeletal Provider 08/14/22 10/08/22 Brea Quinn APRN OSD CLERK [address] [place], [place] 7[address] Nurse Practitioner Dermatology 09/21/22 Brea Quinn APRN OSD CLERK 6401 [facility] [place] [address] Assigned Surgical Provider 10/09/22 05/01/24 [place] [address] [address] Assigned Musculoskeletal Provider 10/09/22 05/01/24 Livan Sharif MD [address], [facility] [address] [place] [address] Assigned Heart and Vascular Provider 11/06/22 11/12/22 Catherine Cm MD [address] [facility] [address] [place] [address]45 Assigned Heart and Vascular Provider 11/13/22 05/27/23 Sydnie Martinez RN Personal Advocate & Liaison (PAL) Family Medicine 03/28/23 07/31/23 Alfonso Renteria MD [address]75 [facility] [address] [place] [address] Assigned Neuroscience Provider 04/02/23 Cheng Todd PA-C [address] [place] [address] Assigned PCP 04/30/23 07/15/23 Radha Lomeli, ARLENE OSD CLERK [address] [facility] [address] [place] [address] Assigned Heart and Vascular Provider 05/28/23 Jelena David OD [address] [facility] [place] [address] Ophthalmology 06/15/23 Pao Joseph, VJ Personal Advocate & Liaison (PAL) Nurse 08/01/23 11/07/23 Esha Grimm PA-C [address] [place] [address] Assigned PCP 07/16/23 Valery Veronica PA-C [address] [place] [address] Physician Generating Plant Superintendent Dermatology 09/19/23 Rey Tay MD [address] [place] [address] 486415 Gastroenterology 09/20/23 Rocky Zepeda DO [address] [place] [address] Physician Gastroenterology 09/20/23 Philip Dumont MD 516 [place] [address] Physician Ophthalmology 09/22/23 Meredith Carrera PA-C [address]09 [place] [address] Assigned Gastroenterology Provider 11/01/23 Neil Kent MD [address] [address] Dermatology 11/02/23 [place] [address] [address] Neurological Surgery 12/26/23 Audrey Waite PA-C [address] [place] [address] Physician Generating Plant Superintendent Dermatology 02/28/24 Valery Veronica PA-C 175462 [place], [place] [address] Physician Generating Plant Superintendent Dermatology 04/10/24 Herminia Hatch MD [employer] [place], [place] [id number] Assigned Rheumatology Provider 07/02/24 documented as of this encounter
--- OUTSIDE RECORDS SUMMARY | 2024-07-22 22:47 | XMS_ITS | Encounter Summary ---
Author Organization [facility] Address [address] [place] [address] Care Team Providers Care Corset Fitter Name Role Phone Lita Oseguera Unavailable Unavailable Marija Edgar APRN USED EQUIPMENT SALES REPRESENTATIVE Primary Care Provider + Marija Edgar APRN USED EQUIPMENT SALES REPRESENTATIVE Unavailable Mynor Broussard MD Unavailable [phone] Keisha Dotson MD Unavailable Galo Burrell MD Unavailable Unavailable Diana Desir [facility] Unavailable Rain Galaviz PA-C Unavailable [phone] Summer Lara MD Unavailable [phone] Tavia Wyatt MD Unavailable Johnny Murillo MD Unavailable [phone] Erica Farrell APRN USED EQUIPMENT SALES REPRESENTATIVE Unavailable Teresita Bean [facility] Unavailable Tavia Wyatt MD Unavailable Diana Desir [facility] Unavailable Rich Barrett MD Unavailable [phone] Neil Kent MD Unavailable Roney Story DPM Unavailable Erica Farrell RFID MANAGER USED EQUIPMENT SALES REPRESENTATIVE Unavailable Thang Diana Stanislav [facility] Unavailable Jelena David OD Unavailable Galo Burrell MD Unavailable Unavailable Livan Sharif MD Unavailable + Livan Sharif MD Unavailable + Catherine Cm MD Unavailable + Valery Veronica PA-C Unavailable [phone] Catherine Cm MD Unavailable + Johnny Murillo MD Unavailable [phone] Brea Quinn RFID MANAGER USED EQUIPMENT SALES REPRESENTATIVE Unavailable [phone] Brea Quinn RFID MANAGER USED EQUIPMENT SALES REPRESENTATIVE Unavailable [phone] Jose Francisco Johnson MD Unavailable Livan Sharif MD Unavailable + IsCatherine hobbs MD Unavailable + Sydnie Martinez RN Unavailable Unavailable Alfonso Renteria MD Unavailable Esha Grimm-C Primary Care Provider Cheng Todd PA-C Unavailable Radha Lomeli RFID MANAGER USED EQUIPMENT SALES REPRESENTATIVE Unavailable [phone] Jelena David OD Unavailable [phone] Pao Joseph RN Unavailable Unavailable Esha Grimm-C Unavailable [phone] JeremíasValery damon PA-C Unavailable [phone] Rey Tay MD Unavailable Rocky Zepeda DO Unavailable Philip Dumont MD Unavailable [phone] Meredith CarreraC Unavailable [phone] Neil Kent MD Unavailable Juan Pablo Emmanuel MD Unavailable Audrey WaiteC Unavailable [phone] Valery Veronica PA-C Unavailable [phone] Herminia Hatch MD Unavailable Encounter Details Date Type Department Care Team (Late st Contact Info) Description 06/01/2021 [facility] [address] [address] [facility] [address] [place] [address] Social History Tobacco Use Types Packs/Day Years [...] you attend chur ch or anabaptism services? More than 4 times [...] in a penitentiary (including now)? No 08/11/2020 [place] Depression Scale Answer Date Recorded [place] Depression Score 5 01/14/2021 Last EPDS Self Harm Result Not on file 01/14 Education Answer Date Recorded What is the highest level of school you have completed or the highest degree you have received? 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 MONOTYPE OPERATOR Gender Identity Female 03/02/2021 5:45 PM CDT Sexual Orientation Straight 02/28/2020 12 :51 AM CDT COVID-19 Exposure Response Date Recorded In the last month, have you been in contact with someone who was confirmed or suspected to have Coronavirus / COVID-19? No / Unsure 05/11/2021 4:19 PM CDT documented as of this encounter Miscellaneous Notes * Telephone Encounter - Diana Desir [facility] - 06/01/2021 3:43 PM CST Called patient and reassured 50 mg dose increase in sertraline is typical and okay to do. She will closely monitor changes in mental health over next couple weeks. Answered all questions. Diana Desir, PharmD Medication Therapy Management Provider, [facility] Pager: [phone] TYPE OPERATOR documented in this encounter Plan of Treatment Upcoming Encounters Date Type Department Care Team (Late st Contact Info) Description 10/23/2024 9:30 AM CDT Office Visit [facility] [place] [address] [facility], [address] [place] [address] [place] [address] [place], [place] [address] Johnny Penn MD [address] [place] [address] 11/28/2024 7:45 AM CDT Virtual Visit [facility] Gastroenterology Clinic [address] 4th [place] [phone] Meredith Carrera PA-C [address] [place] [address] documented as of this encounter Visit Diagnoses Not on filedocumented in this encounter Additional Health Concerns Infection Onset Date Last Indicated Resolved Time Rule Out COVID-19 07/13/2021 07/13/2021 07/14/2021 3:04 PM MONOTYPE OPERATOR Rule Out COVID-19 07/18/2021 07/18/2021 07/20/2021 1:56 PM MONOTYPE OPERATOR COVID-19 07/18/2021 07/18/2021 08/08/2021 11:3 9 PM MONOTYPE OPERATOR Rule Out COVID-19 12/18/2021 12/18/2021 12/19/2021 11:34 AM CDT Rule Out COVID-19 02/24/2022 02/24/2022 02/25/2022 1:08 PM CDT Rule Out COVID-19 04/26/2022 04/26/2022 04/26/2022 6:47 AM CDT Rule Out COVID-19 05/17/2022 05/17/2022 05/17/2022 10:20 PM MONOTYPE OPERATOR Rule Out COVID-19 06/09/2022 06/09/2022 06/09/2022 9:35 AM MONOTYPE OPERATOR COVID-19 06/09/2022 06/09/2022 06/30/2022 11:4 1 PM MONOTYPE OPERATOR Rule Out COVID-19 11/10/2022 11/10/2022 11/11/2022 12:17 PM CDT Rule Out COVID-19 03/07/2023 03/07/2023 03/07/2023 1:20 PM CDT Rule Out COVID-19 12/26/2023 12/26/2023 12/26/2023 9:50 AM CDT Rule Out COVID-19 04/09/2024 04/09/2024 04/10/2024 6:48 PM CDT Assessment Noted Time PHQ-9 Depression Total Score: 2 04/02/20 10:19 AM CDT documented as of this encounter Care Teams Corset Fitter Relationship Specialty Start Date End Date Marija Edgar APRN USED EQUIPMENT SALES REPRESENTATIVE PCP - General Nurse Practitioner 04/30/20 04/14/23 Esha Grimm PA-C [address] [place] [address] PCP - General Family Medicine 05/04/23 Lita Oseguera Personal Advocate & Liaison (PAL) 02/28/20 03/27/23 Marija Edgar APRN USED EQUIPMENT SALES REPRESENTATIVE Assigned PCP 06/08/20 04/29/23 Mynor Broussard MD [address] [address] Assigned Surgical Provider 06/01/20 11/28/21 Keisha Dotson MD 9 [place] [address] Assigned Neuroscience Provider 06/04/20 04/01/23 Galo Burrell MD Assigned Heart and Vascular Provider 10/05/20 04/02/22 Diana Desir, [facility] [address] [place] [address] Pharmacist Pharmacist 04/17/21 Rain Galaviz PA-C [address] [place] [address] [place] [address] Physician Product Line Manager Dermatology 04/28/21 Summer Lara MD [address] [place] [address] Assigned OBGYN Provider 05/31/21 2 Tavia Wyatt MD [address] [place], [place] [address] Dermatology 07/14/21 Johnny Murillo MD [address] [place] [address] Assigned Musculoskeletal Provider 08/30/21 03/17/22 Erica Farrell APRN USED EQUIPMENT SALES REPRESENTATIVE [address] [facility] [address] [place] [address] Nurse Practitioner Cardiovascular Disease 09/09/21 Teresita Bean, [facility] [address] [place] [address] Pharmacist Pharmacist 09/24/21 09/29/21 Tavia Wyatt MD [address] [place] [address] Assigned Surgical Provider 11/29/21 05/07/22 Diana Desir, [facility] 3033 [place] [address] Assigned MTM Pharmacist 01/02/22 Rich Barrett MD [address] [address] Physician Ophthalmology 01/21/22 Neil Kent MD 500 [place] [address] Dermatology 02/24/22 Roney Story DPM [address] [facility] [address] [place] [address] Assigned Musculoskeletal Provider 03/20/22 08/13/22 Erica Farrell APRN USED EQUIPMENT SALES REPRESENTATIVE 1700 [place] [address] Assigned Heart and Vascular Provider 04/03/22 04/16/22 Diana Desir, [facility] [address] [place] [address] Assigned MTM Pharmacist 04/07/22 Jelena Davdi OD [address] [facility] [place] [address] Assigned Surgical Provider 05/08/22 10/08/22 Galo Burrell MD Assigned Heart and Vascular Provider 04/17/22 06/11/22 Livan Sharif MD [address], [facility] [address] [place] [address] Cardiovascular Disease 05/14/22 Livan Sharif MD [address] [place], [facility]00 [place] [address] Assigned Heart and Vascular Provider 06/12/22 07/23/22 Catherine Cm MD [address] [facility]00 [place] [address] Cardiovascular Disease 07/21/22 Valery Veronica, PA-C [address] [place] [address]78015 Physician Product Line Manager Dermatology 07/21/22 Catherine Cm MD [address] [facility] [place] [address] Assigned Heart and Vascular Provider 07/24/22 11/05/22 Johnny Murillo MD [facility] [address] [address] Assigned Musculoskeletal Provider 08/14/22 10/08/22 Brea Quinn APRN USED EQUIPMENT SALES REPRESENTATIVE [address] [place] [address] 898275 Nurse Practitioner Dermatology 09/21/22 Brea Quinn APRN USED EQUIPMENT SALES REPRESENTATIVE [address] [place] [address] [place] [address] Assigned Surgical Provider 10/09/22 05/01/24 [place] [address] [place] [address], [place] [address] Assigned Musculoskeletal Provider 10/09/22 05/01/24 Livan Sharif MD [address], [facility] [address] [place] [address] Assigned Heart and Vascular Provider 11/06/22 11/12/22 Catherine Cm MD [address] [facility] [address] [place] [address] Assigned Heart and Vascular Provider 11/13/22 05/27/23 Sydnie Martinez RN Personal Advocate & Liaison (PAL) Family Medicine 03/28/23 07/31/23 Alfonso Renteria MD 5775 [facility] 200 [place] [address] Assigned Neuroscience Provider 04/02/23 Cheng Todd PA-C [address] [place] [address] [id number] Assigned PCP 04/30/23 07/15/23 Radha Lomeli APRN USED EQUIPMENT SALES REPRESENTATIVE [address] [place] [address] Assigned Heart and Vascular Provider 05/28/23 Jelena David OD [address] [facility] [place] [address] MD Ophthalmology 06/15/23 Pao Joseph, RN Personal Advocate & Liaison (PAL) Nurse 08/01/23 11/07/23 Esha Grimm PA-C [address] [place] [address] Assigned PCP 07/16/23 Valery Veronica PA-C [address] [place] [address] Physician Product Line Manager Dermatology 09/19/23 Rey Tay MD [address] [place] [address] Gastroenterology 09/20/23 Rocky Zepeda DO [address] [place] [address] 373535 Physician Gastroenterology 09/20/23 Philip Dumont MD [address] [place] [address] 347045 Physician Ophthalmology 09/22/23 Meredith Carrera PA-C [address] [place] [address] 114285 Assigned Gastroenterology Provider 11/01/23 Neil Kent MD [address] 5811[address] Dermatology 11/02/23 [place] [address] [place] [address] Neurological Surgery 12/26/23 Audrey Waite PA-C 500 [place] [address] Physician Product Line Manager Dermatology 02/28/24 Valery Veronica PA-C [address] [place] [address] Physician Product Line Manager Dermatology 04/10/24 Herminia Hatch MD [address] [place] [address] [id number] Assigned Rheumatology Provider 07/02/24 documented as of this encounter
--- OUTSIDE RECORDS SUMMARY | 2024-07-22 22:47 | XMS_ITS | Encounter Summary ---
Author Organization [facility] Address [address] [place] [address] Care Team Providers Care Deputy Sheriff Generalist Name Role Phone Lita Oseguera Unavailable Unavailable Marija Edgar APRN LABORER BEAM HOUSE Primary Care Provider + Marija Edgar APRN LABORER BEAM HOUSE Unavailable Mynor Broussard MD Unavailable [phone] Keisha Dotson MD Unavailable Galo Burrell MD Unavailable Unavailable Diana Desir [facility] Unavailable [phone] Rain Galaviz PA-C Unavailable Summer Lara MD Unavailable [phone] Tavia Wyatt MD Unavailable Johnny Murillo MD Unavailable Erica Farrell APRN LABORER BEAM HOUSE Unavailable Teresita Bean [facility] Unavailable [phone] Tavia Wyatt MD Unavailable Diana Desir [facility] Unavailable [phone] Rich Barrett MD Unavailable [phone] Neil Kent MD Unavailable Roney Story DPM Unavailable Erica Farrell COLLET MAKING MACHINE OPERATOR LABORER BEAM HOUSE Unavailable Thang Diana Stanislav [facility] Unavailable Jelena David OD Unavailable Galo Burrell MD Unavailable Unavailable Livan Sharif MD Unavailable + Livan Sharif MD Unavailable + Catherine Cm MD Unavailable + Valery Veornica PA-C Unavailable [phone] Catherine Cm MD Unavailable + Johnny Murillo MD Unavailable [phone] Brea Quinn COLLET MAKING MACHINE OPERATOR LABORER BEAM HOUSE Unavailable [phone] Brea Quinn COLLET MAKING MACHINE OPERATOR LABORER BEAM HOUSE Unavailable [phone] Jose Francisco Johnsno MD Unavailable Livan Sharif MD Unavailable + IsCatherine hobbs MD Unavailable + Sydnie Martinez RN Unavailable Unavailable Alfonso Renteria MD Unavailable Esha Grimm-C Primary Care Provider Cheng Todd PA-C Unavailable Radha Lomeli COLLET MAKING MACHINE OPERATOR LABORER BEAM HOUSE Unavailable [phone] Jelena David OD Unavailable Pao Joseph RN Unavailable Unavailable Esha Grimm-C Unavailable [phone] JeremíasValery damon PA-C Unavailable [phone] Rey Tay MD Unavailable Rocky Zepeda DO Unavailable Philip Dumont MD Unavailable [phone] Meredith CarreraC Unavailable [phone] Neil Kent MD Unavailable Juan Pablo Emmanuel MD Unavailable [phone] Audrey WaiteC Unavailable [phone] Valery VeronicaC Unavailable [phone] Herminia Hatch MD Unavailable Encounter Details Date Type Department Care Team (Late st Contact Info) Description 07/14/2021 MyC Medical Advice [address] [address] Lauren Gan, RN Social History [...] you attend chur ch or confucianist services? More than 4 times per year [...] Answer Date Recorded PHQ-2 Score 0 04/02/2021 [facility] - [...] in a alf (including now)? No 08/11/2020 [place] Depression Scale Answer Date Recorded [place] Depression Score 5 01/14/2021 Last EPDS Self Harm Result Not on file 01/14 Education Answer Date Recorded What is the highest level of school you have completed or the highest degree you have received? 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 POSSUM TRAPPER Gender Identity Female 03/02/2021 5:45 PM CDT Sexual Orientation Straight 02/28/2020 12 :51 AM CDT COVID-19 Exposure Response Date Recorded In the last month, have you been in contact with someone who was confirmed or suspected to have Coronavirus / COVID-19? Yes 07/15/2021 12:15 PM POSSUM TRAPPER documented as of this encounter Plan of Treatment Upcoming Encounters Date Type Department Care Team (Late st Contact Info) Description 10/23/2024 9:30 AM CDT Office Visit [facility] [address], [address] [place] [address] [place] [address] [place] [address] Johnny Penn MD [address]20 [place] [phone] 11/28/2024 7:45 AM CDT Virtual Visit [facility] [address] 4th [place] [phone] Meredith Carrera PA-C [address] [place] [address] documented as of this encounter Visit Diagnoses Not on filedocumented in this encounter Additional Health Concerns Infection Onset Date Last Indicated Resolved Time Rule Out COVID-19 07/13/2021 07/13/2021 07/14/2021 3:04 PM POSSUM TRAPPER Rule Out COVID-19 07/18/2021 07/18/2021 07/20/2021 1:56 PM POSSUM TRAPPER COVID-19 07/18/2021 07/18/2021 08/08/2021 11:3 9 PM POSSUM TRAPPER Rule Out COVID-19 12/18/2021 12/18/2021 12/19/2021 11:34 AM CDT Rule Out COVID-19 02/24/2022 02/24/2022 02/25/2022 1:08 PM CDT Rule Out COVID-19 04/26/2022 04/26/2022 04/26/2022 6:47 AM CDT Rule Out COVID-19 05/17/2022 05/17/2022 05/17/2022 10:20 PM POSSUM TRAPPER Rule Out COVID-19 06/09/2022 06/09/2022 06/09/2022 9:35 AM POSSUM TRAPPER COVID-19 06/09/2022 06/09/2022 06/30/2022 11:4 1 PM POSSUM TRAPPER Rule Out COVID-19 11/10/2022 11/10/2022 11/11/2022 12:17 PM CDT Rule Out COVID-19 03/07/2023 03/07/2023 03/07/2023 1:20 PM CDT Rule Out COVID-19 12/26/2023 12/26/2023 12/26/2023 9:50 AM CDT Rule Out COVID-19 04/09/2024 04/09/2024 04/10/2024 6:48 PM CDT Assessment Noted Time PHQ-9 Depression Total Score: 2 04/02/20 10:19 AM CDT documented as of this encounter Care Teams Deputy Sheriff Generalist Relationship Specialty Start Date End Date Marija Edgar APRN LABORER BEAM HOUSE PCP - General Nurse Practitioner 04/30/20 04/14/23 Esha Grimm PA-C [address] [place] [address] PCP - General Family Medicine 05/04/23 Lita Oseguera Personal Advocate & Liaison (PAL) 02/28/20 03/27/23 Marija Edgar APRN LABORER BEAM HOUSE Assigned PCP 06/08/20 04/29/23 Mynor Broussard MD [address] [facility] [address] [address] Assigned Surgical Provider 06/01/20 11/28/21 Keisha Dotson MD 909 [place] [address] Assigned Neuroscience Provider 06/04/20 04/01/23 Galo Burrell MD Assigned Heart and Vascular Provider 10/05/20 04/02/22 Diana Desir, [facility] [address] [place] [address] Pharmacist Pharmacist 04/17/21 Rain Galaviz PA-C [address] [facility] [address] [place] [address] Physician Experienced Truck Driver Dermatology 04/28/21 Summer Lara MD [address] [place], [place] [address] Assigned OBGYN Provider 05/31/21 Tavia Wyatt MD [address] [place], [place] [address] Dermatology 07/14/21 Johnny Murillo MD [address] [place], [place] [address] Assigned Musculoskeletal Provider 08/30/21 03/17/22 Erica Farrell APRN LABORER BEAM HOUSE [address] [facility] [address] [place], [place] 58[address] Nurse Practitioner Cardiovascular Disease 09/09/21 Teresita Bean [facility] [address] [place] [phone] Pharmacist Pharmacist 09/24/21 09/29/21 Tavia Wyatt MD [address] [place], [place] [address]184[address] Assigned Surgical Provider 11/29/21 05/07/22 Diana Desir, [facility] [address] [place], [place] [address] Assigned MTM Pharmacist 01/02/22 Rich Barrett MD 516 [facility] [address] [place], [place] [address] Physician Ophthalmology 01/21/22 Neli Kent MD 500 [place] [address] Dermatology 02/24/22 [place] [address] [facility] [address] [place] [address] Assigned Musculoskeletal Provider 03/20/22 08/13/22 Erica Farrell APRN LABORER BEAM HOUSE 1700 [place] [address] Assigned Heart and Vascular Provider 04/03/22 04/16/22 Diana Desir, [facility] [address] [place] [address] Assigned MTM Pharmacist 04/07/22 Jelena David OD [address] [facility] [place] [address] Assigned Surgical Provider 05/08/22 10/08/22 Galo Burrell MD Assigned Heart and Vascular Provider 04/17/22 06/11/22 Livan Sharif MD [address] [place] [address] Cardiovascular Disease 05/14/22 Livan Sharif MD [address] [place] [address]70[address] Assigned Heart and Vascular Provider 06/12/22 07/23/22 Catherine Cm MD [address] [place] [address] Cardiovascular Disease 07/21/22 Valery Veronica PA-C [address] [place] [address] Physician Experienced Truck Driver Dermatology 07/21/22 Catherine Cm MD [address] [facility] [address] [facility] [address] [place] [address] Assigned Heart and Vascular Provider 07/24/22 11/05/22 Johnny Murillo MD [address] [place] [address] Assigned Musculoskeletal Provider 08/14/22 10/08/22 Brea Quinn APRN [employer]ORER BEAM HOUSE [address] [place] [address]5775 Nurse Practitioner Dermatology 09/21/22 Brea Quinn APRN LABORER BEAM HOUSE [address] [place] [address] Assigned Surgical Provider 10/09/22 05/01/24 [place] [address] [place] [address] [address] Assigned Musculoskeletal Provider 10/09/22 05/01/24 Livan Sharif MD [address], [facility] [address] [place] [address] Assigned Heart and Vascular Provider 11/06/22 11/12/22 Catherine Cm MD [address] [place] [address] Assigned Heart and Vascular Provider 11/13/22 05/27/23 Sydnie Martinez RN Personal Advocate & Liaison (PAL) Family Medicine 03/28/23 07/31/23 Alfonso Renteria MD 57[address] [facility] [address] [place] [address] Assigned Neuroscience Provider 04/02/23 Cheng Todd PA-C [address] [place] [address] [phone] Assigned PCP 04/30/23 07/15/23 Radha Lomeli APRN LABORER BEAM HOUSE [address] [place] [address] Assigned Heart and Vascular Provider 05/28/23 Jelena David OD [address] [facility] [place] [address] Ophthalmology 06/15/23 Pao Joseph RN Personal Advocate & Liaison (PAL) Nurse 08/01/23 11/07/23 Esha Grimm PA-C [address] [place] [phone] Assigned PCP 07/16/23 Valery Veronica PA-C 909 [place] [address] Physician Experienced Truck Driver Dermatology 09/19/23 Rey Tay MD 909 [place] [address] Gastroenterology 09/20/23 Rocky Zepeda DO 500 [place] [address] Physician Gastroenterology 09/20/23 Philip Dumont MD 6 [place] [address] Physician Ophthalmology 09/22/23 Meredith Carrera PA-C 9 [place] [address] Assigned Gastroenterology Provider 11/01/23 Neil Kent MD [address] [address] Dermatology 11/02/23 [place] [address] [place] [address] [address] Neurological Surgery 12/26/23 Audrey Waite PA-C 500 [place] [address] Physician Experienced Truck Driver Dermatology 02/28/24 Valery Veronica PA-C [address] [place] [address] Physician Experienced Truck Driver Dermatology 04/10/24 Herminia Hatch MD [facility]5 [place], [place] [address] Assigned Rheumatology Provider 07/02/24 documented as of this encounter
--- OUTSIDE RECORDS SUMMARY | 2024-07-22 22:47 | XMS_ITS | Encounter Summary ---
Author Organization [facility] Address [address] [place] [address] Care Team Providers Care Campus Recruiter Name Role Phone Lita Oseguera Unavailable Unavailable Marija Edgar APRN CAUL FAT PULLER Primary Care Provider + Marija Edgar APRN CAUL FAT PULLER Unavailable Mynor Broussard MD Unavailable [phone] Keisha Dotson MD Unavailable Galo Burrell MD Unavailable Unavailable Diana Desir [facility] Unavailable Rain Galaviz PA-C Unavailable [phone] Summer Lara MD Unavailable [phone] Tavia Wyatt MD Unavailable Johnny Murillo MD Unavailable Erica Farrell APRN CAUL FAT PULLER Unavailable Teresita Bean [facility] Unavailable Tavia Wyatt MD Unavailable Diana Desir [facility] Unavailable Rich Barrett MD Unavailable [phone] Neil Kent MD Unavailable Roney Story DPM Unavailable Erica Farrell FOOD SERVICE SALES REPRESENTATIVES CAUL FAT PULLER Unavailable Thang Diana Stanislav [facility] Unavailable Jelena David OD Unavailable Galo Burrell MD Unavailable Unavailable Livan Sharif MD Unavailable + Livan Sharif MD Unavailable + Catherine Cm MD Unavailable + Valery Veronica PA-C Unavailable [phone] Catherine Cm MD Unavailable + Johnny Murillo MD Unavailable [phone] Brea Quinn FOOD SERVICE SALES REPRESENTATIVES CAUL FAT PULLER Unavailable [phone] Brea Quinn FOOD SERVICE SALES REPRESENTATIVES CAUL FAT PULLER Unavailable [phone] Jose Francisco Johnson MD Unavailable Livan Sharif MD Unavailable + IsCatherine hobbs MD Unavailable + Sydnie Martinez RN Unavailable Unavailable Alfonso Renteria MD Unavailable Esha Grimm-C Primary Care Provider Cheng Todd PA-C Unavailable Radha Lomeli FOOD SERVICE SALES REPRESENTATIVES CAUL FAT PULLER Unavailable [phone] Jelena David OD Unavailable Pao Joseph RN Unavailable Unavailable Esha Grimm-C Unavailable [phone] JeremíasValery damon PA-C Unavailable [phone] Rey Tay MD Unavailable Rocky Zepeda DO Unavailable Philip Dumont MD Unavailable [phone] Meredith CarreraC Unavailable [phone] Neil Kent MD Unavailable Juan Pablo Emmanuel MD Unavailable Audrey WaiteC Unavailable [phone] Valery Veronica PA-C Unavailable [phone] Herminia Hatch MD Unavailable Encounter Details Date Type Department Care Team (Late st Contact Info) Description 09/02/2021 [facility] [address] [address] [facility] 30[address] [place] [address] Social History Tobacco Use Types Packs/Day Years [...] Answer Date Recorded PHQ-2 Score 0 04/02/2021 [facility] [...] in a penitentiary (including now)? No 08/11/2020 [place] Depression Scale Answer Date Recorded [place] Depression Score 5 01/14/2021 Last EPDS Self Harm Result Not on file 01/14 Education Answer Date Recorded What is the highest level of school you have completed or the highest degree you have received? 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 CASUALTY INSURANCE CLAIM ADJUSTER Gender Identity Female 03/02/2021 5:45 PM CDT Sexual Orientation Straight 02/28/2020 12 :51 AM CDT COVID-19 Exposure Response Date Recorded In the last month, have you been in contact with someone who was confirmed or suspected to have Coronavirus / COVID-19? No / Unsure 09/02/2021 12:26 PM CASUALTY INSURANCE CLAIM ADJUSTER documented as of this encounter Plan of Treatment Upcoming Encounters Date Type Department Care Team (Late st Contact Info) Description 10/23/2024 9:30 AM CDT Office Visit [facility] [place] [address] [place] [address], [address] [place] [address] [place] [address] [address] [place] [address] Johnny Penn MD [address] [place] [address] 11/28/2024 7:45 AM CDT Virtual Visit [facility] [address] [place] [address] Meredith Carrera PA-C [address] [place] [address] documented as of this encounter Visit Diagnoses Not on filedocumented in this encounter Additional Health Concerns Infection Onset Date Last Indicated Resolved Time Rule Out COVID-19 12/18/2021 12/18/2021 12/19/2021 11:34 AM CDT Rule Out COVID-19 02/24/2022 02/24/2022 02/25/2022 1:08 PM CDT Rule Out COVID-19 04/26/2022 04/26/2022 04/26/2022 6:47 AM CDT Rule Out COVID-19 05/17/2022 05/17/2022 05/17/2022 10:20 PM CASUALTY INSURANCE CLAIM ADJUSTER Rule Out COVID-19 06/09/2022 06/09/2022 06/09/2022 9:35 AM CASUALTY INSURANCE CLAIM ADJUSTER COVID-19 06/09/2022 06/09/2022 06/30/2022 11:4 1 PM CASUALTY INSURANCE CLAIM ADJUSTER Rule Out COVID-19 11/10/2022 11/10/2022 11/11/2022 12:17 PM CDT Rule Out COVID-19 03/07/2023 03/07/2023 03/07/2023 1:20 PM CDT Rule Out COVID-19 12/26/2023 12/26/2023 12/26/2023 9:50 AM CDT Rule Out COVID-19 04/09/2024 04/09/2024 04/10/2024 6:48 PM CDT Assessment Noted Time PHQ-9 Depression Total Score: 2 04/02/20 21 10:19 AM CDT documented as of this encounter Care Teams Campus Recruiter Relationship Specialty Start Date End Date Marija Edgar APRN CNP PCP - General Nurse Practitioner 04/30/20 04/14/23 Esha Grimm PA-C [address] [place] [phone] PCP - General Family Medicine 05/04/23 Lita Oseguera Personal Advocate & Liaison (PAL) 02/28/20 03/27/23 Marija Edgar APRN CAUL FAT PULLER Assigned PCP 06/08/20 04/29/23 Mynor Broussard MD [address] [address] Assigned Surgical Provider 06/01/20 11/28/21 Keisha Dotson MD 909 [place] [address] Assigned Neuroscience Provider 06/04/20 04/01/23 Galo Burrell MD Assigned Heart and Vascular Provider 10/05/20 04/02/22 Diana Desir, [facility] [address] [place] [address] Pharmacist Pharmacist 04/17/21 Rain Galaviz PA-C [address] [place] [address] [address] [facility] [place] [place] [address] Physician Veneer Glue Spreader Dermatology 04/28/21 Summer Lara MD [address] [place] [address] 802754 Assigned OBGYN Provider 05/31/21 2 Tavia Wyatt MD [address] [place], [place] 443594 Dermatology 07/14/21 Johnny Murillo MD [address] [place] [address] Assigned Musculoskeletal Provider 08/30/21 03/17/22 Erica Farrell APRN CAUL FAT PULLER [address] [facility] [address] [place], [place] [address] Nurse Practitioner Cardiovascular Disease 09/09/21 Teresita Bean [facility] [address] [facility] [address] [place], [place] [phone] Pharmacist Pharmacist 09/24/21 09/29/21 Tavia Wyatt MD [address] [place], [place] [address] Assigned Surgical Provider 11/29/21 05/07/22 Diana Desir, [facility] [address] [place] [address] Assigned MTM Pharmacist 01/02/22 Rich Barrett MD 516 [facility] 9[address] [place], [place] [phone] Physician Ophthalmology 01/21/22 Neil Kent MD 500 [place], [place] [phone] Dermatology 02/24/22 [place]oney Story [place] [address] [facility] [address] [place] [address] Assigned Musculoskeletal Provider 03/20/22 08/13/22 Erica Farrell APRN CAUL FAT PULLER 1700 [place] [address] Assigned Heart and Vascular Provider 04/03/22 04/16/22 Diana Desir, [facility] 3033 [place], [place] 9[address]86 Assigned MTM Pharmacist 04/07/22 Jelena David OD [address] [facility] [place] [address] Assigned Surgical Provider 05/08/22 10/08/22 Galo Burrell MD Assigned Heart and Vascular Provider 04/17/22 06/11/22 Livan Sharif MD [address] [place] [address] Cardiovascular Disease 05/14/22 Livan Sharif MD [address], [address] [place] [address] Assigned Heart and Vascular Provider 06/12/22 07/23/22 Catherine Cm MD [address] [place] [address] Cardiovascular Disease 07/21/22 Valery Veronica, PAUcheC 909 [place] [address] Physician Veneer Glue Spreader Dermatology 07/21/22 Catherine Cm MD [address] [facility] [place] [address] Assigned Heart and Vascular Provider 07/24/22 11/05/22 Johnny Murillo MD [facility] [address] Assigned Musculoskeletal Provider 08/14/22 10/08/22 Brea Quinn APRN CAUL FAT PULLER [address] [place] [address] 703795 Nurse Practitioner Dermatology 09/21/22 Brea Quinn APRN CAUL FAT PULLER [address] [place] [address] [place] 430712 Assigned Surgical Provider 10/09/22 05/01/24 [place] [address] [address] Assigned Musculoskeletal Provider 10/09/22 05/01/24 Livan Sharif MD [address], [facility] [address] [place] [address] Assigned Heart and Vascular Provider 11/06/22 11/12/22 Catherine Cm MD [address] [place] [address] Assigned Heart and Vascular Provider 11/13/22 05/27/23 Sydnie Martinez, RN Personal Advocate & Liaison (PAL) Family Medicine 03/28/23 07/31/23 Alfonso Renteria MD 5775 [facility] [address] 200 [place] [address] Assigned Neuroscience Provider 04/02/23 Cheng Todd PA-C [address] [place] [address] [id number] Assigned PCP 04/30/23 07/15/23 Radha Lomeli APRN CAUL FAT PULLER [address] [facility] [address] [place], [place] 343[address] Assigned Heart and Vascular Provider 05/28/23 Jelena David OD [address] [facility] [place] [address] Ophthalmology 06/15/23 Pao Joseph, VJ Personal Advocate & Liaison (PAL) Nurse 08/01/23 11/07/23 Esha Grimm PA-C [address] [place] [address] Assigned PCP 07/16/23 Valery Veronica PA-C [address] [place] [address] 293615 Physician Veneer Glue Spreader Dermatology 09/19/23 Rey Tay MD 909 [place], [place] 359435 Gastroenterology 09/20/23 Rocky eZpeda DO 500 [place] [address] Physician Gastroenterology 09/20/23 Philip Dumont MD 516 [place] [address] Physician Ophthalmology 09/22/23 Meredith Carrera PA-C 909 [place] [address] Assigned Gastroenterology Provider 11/01/23 Neil Kent MD [address] [address] MD Dermatology 11/02/23 [place] [address] [address] Neurological Surgery 12/26/23 Audrey Waite PA-C 500 [place] [address] Physician Veneer Glue Spreader Dermatology 02/28/24 Valery Veronica PA-C 774699 [address], [place] [address] Physician Veneer Glue Spreader Dermatology 04/10/24 Herminia Hatch MD [facility]5 [place], [place] [address] Assigned Rheumatology Provider 07/02/24 documented as of this encounter
--- OUTSIDE RECORDS SUMMARY | 2024-07-22 22:47 | XMS_ITS | Encounter Summary ---
Author Organization [facility] Address [address] [place] [address] Care Team Providers Care Shuttle Truck Driver Name Role Phone Lita Oseguera Unavailable Unavailable Marija Edgar APRN PLANTING MATERIAL UNLOADER Primary Care Provider + Marija Edgar APRN PLANTING MATERIAL UNLOADER Unavailable [phone] Mynor Broussard MD Unavailable [phone] Keisha Dotson MD Unavailable Galo Burrell MD Unavailable Unavailable Diana Desir [facility] Unavailable [phone] Rain Galaviz PA-C Unavailable Summer Lara MD Unavailable [phone] Tavia Wyatt MD Unavailable Johnny Murillo MD Unavailable Erica Farrell APRN PLANTING MATERIAL UNLOADER Unavailable Teresita Bean [facility] Unavailable [phone] Tavia Wyatt MD Unavailable Diana Desir [facility] Unavailable Rich Barrett MD Unavailable [phone] Neil Kent MD Unavailable Roney Story DPM Unavailable Erica Farrell ORDER CONTROL CLERK BLOOD BANK PLANTING MATERIAL UNLOADER Unavailable Thang Diana Stanislav [facility] Unavailable Jelena David OD Unavailable Galo Burrell MD Unavailable Unavailable Livan Sharif MD Unavailable + Livan Sharif MD Unavailable + Catherine Cm MD Unavailable + Valery Veronica PA-C Unavailable [phone] Catherine Cm MD Unavailable + Johnny Murillo MD Unavailable [phone] Brea Quinn ORDER CONTROL CLERK BLOOD BANK PLANTING MATERIAL UNLOADER Unavailable [phone] Brea Quinn ORDER CONTROL CLERK BLOOD BANK PLANTING MATERIAL UNLOADER Unavailable [phone] Jose Francisco Johnson MD Unavailable Livan Sharif MD Unavailable + IsCatherine hobbs MD Unavailable + Sydnie Martinez RN Unavailable Unavailable Alfonso Renteria MD Unavailable Esha Grimm-C Primary Care Provider Cheng Todd PA-C Unavailable Radha Lomeli ORDER CONTROL CLERK BLOOD BANK PLANTING MATERIAL UNLOADER Unavailable [phone] Jelena Daivd OD Unavailable [phone] Pao Joseph RN Unavailable Unavailable Esha Grimm-C Unavailable [phone] JeremíasValery damon PA-C Unavailable [phone] Rey Tay MD Unavailable Rocky Zepeda DO Unavailable Philip Dumont MD Unavailable [phone] Meredith CarreraC Unavailable [phone] Neil Kent MD Unavailable Juan Pablo Emmanuel MD Unavailable [phone] Audrey WaiteC Unavailable [phone] Valery Veronica PA-C Unavailable [phone] Herminia Hatch MD Unavailable Encounter Details Date Type Department Care Team (Late st Contact Info) Description 06/03/2021 [facility] [address] [address] [facility] [address] [place] [address] Social History Tobacco Use Types Packs/Day Years [...] you attend chur ch or restorationist services? More than 4 times [...] a senior care (including now)? No 08/11/2020 [place] Depression Scale Answer Date Recorded [place] Depression Score 5 01/14/2021 Last EPDS Self Harm Result Not on file 01/14 Education Answer Date Recorded What is the highest level of school you have completed or the highest degree you have received? 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 OVEREDGER Gender Identity Female 03/02/2021 5:45 PM CDT [...] Office Visit [facility] [place] [address] [place] [address], [address] [place] [address] [place] [address] [place] [address] Johnny Penn MD [address] [place] [address] 11/28/2024 7:45 AM CDT Virtual Visit [facility] [address] [place] [phone] Meredith Carrera PA-C [address] [place] [address] documented as of this encounter Visit Diagnoses Not on filedocumented in this encounter Additional Health Concerns Infection Onset Date Last Indicated Resolved Time Rule Out COVID-19 07/13/2021 07/13/2021 07/14/2021 3:04 PM OVEREDGER Rule Out COVID-19 07/18/2021 07/18/2021 07/20/2021 1:56 PM OVEREDGER COVID-19 07/18/2021 07/18/2021 08/08/2021 11:3 9 PM OVEREDGER Rule Out COVID-19 12/18/2021 12/18/2021 12/19/2021 11:34 AM CDT Rule Out COVID-19 02/24/2022 02/24/2022 02/25/2022 1:08 PM CDT Rule Out COVID-19 04/26/2022 04/26/2022 04/26/2022 6:47 AM CDT Rule Out COVID-19 05/17/2022 05/17/2022 05/17/2022 10:20 PM OVEREDGER Rule Out COVID-19 06/09/2022 06/09/2022 06/09/2022 9:35 AM OVEREDGER COVID-19 06/09/2022 06/09/2022 06/30/2022 11:4 1 PM OVEREDGER Rule Out COVID-19 11/10/2022 11/10/2022 11/11/2022 12:17 PM CDT Rule Out COVID-19 03/07/2023 03/07/2023 03/07/2023 1:20 PM CDT Rule Out COVID-19 12/26/2023 12/26/2023 12/26/2023 9:50 AM CDT Rule Out COVID-19 04/09/2024 04/09/202404/1004/10/2024 6:48 PM CDT Assessment Noted Time PHQ-9 Depression Total Score: 2 04/02/20 10:19 AM CDT documented as of this encounter Care Teams Shuttle Truck Driver Relationship Specialty Start Date End Date Marija Edgar APRN PLANTING MATERIAL UNLOADER PCP - General Nurse Practitioner 04/30/20 04/14/23 Esha Grimm PA-C [address] [place] [address] PCP - General Family Medicine 05/04/23 Lita Oseguera Personal Advocate & Liaison (PAL) 02/28/20 03/27/23 Marija Edgar APRN PLANTING MATERIAL UNLOADER Assigned PCP 06/08/20 04/29/23 Mynor Broussard MD 6363 [facility] 500 [place], [place] 989775 Assigned Surgical Provider 06/01/20 11/28/21 Keisha Dotsno MD 909 [place], [place] 605905 Assigned Neuroscience Provider 06/04/20 04/01/23 Galo Burrell MD Assigned Heart and Vascular Provider 10/05/20 04/02/22 Diana Desir, [facility] [address] [place], [place] 89[address] Pharmacist Pharmacist 04/17/21 Rain Galaviz PA-C [address] [place] [address] [facility] [place] [address] Physician Edge Inker Uppers Dermatology 04/28/21 Summer Lara MD [address] [place] [address] Assigned OBGYN Provider 05/31/21 2 Tavia Wyatt MD [address] [place] [address] Dermatology 07/14/21 Johnny Murillo MD [address] [place] [address] Assigned Musculoskeletal Provider 08/30/21 03/17/22 Erica Farrell APRN PLANTING MATERIAL UNLOADER [address] [facility] [address] [place] [address] Nurse Practitioner Cardiovascular Disease 09/09/21 Teresita Bean, [facility] [address] [facility] [place] [address] Pharmacist Pharmacist 09/24/21 09/29/21 Tavia Wyatt MD [address] [place], [place] 399790 Assigned Surgical Provider 11/29/21 05/07/22 [facility] [address] [place] [address] Assigned MTM Pharmacist 01/02/22 Rich Barrett MD [address] [facility] [address] [place] [address] Physician Ophthalmology 01/21/22 Neil Kent MD 500 [place] [address] Dermatology 02/24/22 Roney Story DPM [address] [facility] [address] [place] [address] Assigned Musculoskeletal Provider 03/20/22 08/13/22 Erica Farrell APRN PLANTING MATERIAL UNLOADER 1700 [place] [address] Assigned Heart and Vascular Provider 04/03/22 04/16/22 [facility] [address] [place] [address] Assigned MTM Pharmacist 04/07/22 Jelena David OD [address] [place] [address] Assigned Surgical Provider 05/08/22 10/08/22 Galo Burrell MD Assigned Heart and Vascular Provider 04/17/22 06/11/22 Livan Sharif MD [address] [place] [address] Cardiovascular Disease 05/14/22 Livan Sharif MD [address] [place] 383795 Assigned Heart and Vascular Provider 06/12/22 07/23/22 Catherine Cm MD [address] [place] [address] [place] [address] Cardiovascular Disease 07/21/22 Valery Veronica, PA-C [address] [place] [address] 876295 Physician Edge Inker Uppers Dermatology 07/21/22 Catherine Cm MD [address] [place] [address] [place] [address] Assigned Heart and Vascular Provider 07/24/22 11/05/22 Johnny Murillo MD [address] [place] [address] Assigned Musculoskeletal Provider 08/14/22 10/08/22 Brea Quinn APRN PLANTING MATERIAL UNLOADER [address] [place] [address] Nurse Practitioner Dermatology 09/21/22 Brea Quinn APRN PLANTING MATERIAL UNLOADER [address] [place] [address] [place] [address] Assigned Surgical Provider 10/09/22 05/01/24 [place] [address] RAZO [address] [place] [address] Assigned Musculoskeletal Provider 10/09/22 05/01/24 Livan Sharif MD [address], [place] [address] [place] [address] Assigned Heart and Vascular Provider 11/06/22 11/12/22 Catherine Cm MD [address] [facility] [address] [place] [address] Assigned Heart and Vascular Provider 11/13/22 05/27/23 Sydnie Martinez RN Personal Advocate & Liaison (PAL) Family Medicine 03/28/23 07/31/23 Alfonso Renteria MD 5775 [facility] 200 [place], [place] 353136 Assigned Neuroscience Provider 04/02/23 Cheng Todd PA-C [address] [place] [address] [id number] Assigned PCP 04/30/23 07/15/23 Radha Lomeli APRN PLANTING MATERIAL UNLOADER [address] [facility] [address] [place] 49[address]25 Assigned Heart and Vascular Provider 05/28/23 Jelena David OD [address] [facility] [address] [place] [id number] Ophthalmology 06/15/23 Pao Joseph, VJ Personal Advocate & Liaison (PAL) Nurse 08/01/23 11/07/23 Esha Grimm PA-C [address] [place] [address] Assigned PCP 07/16/23 Valery Veronica PA-C [address] [place] [address] Physician Edge Inker Uppers Dermatology 09/19/23 Rey Tay MD 9 [place] [address] MD Gastroenterology 09/20/23 Rocky Zepeda DO 500 [place] [address] Physician Gastroenterology 09/20/23 Philip Dumont MD 6 [place], [place] 771825 Physician Ophthalmology 09/22/23 Meredith Carrera PA-C [address] [place] [address] Assigned Gastroenterology Provider 11/01/23 Neil Kent MD [address] [place] [address] Dermatology 11/02/23 [place] [address] [place] [place] [facility] [place] [address] Neurological Surgery 12/26/23 Audrey Waite PA-C 500 [place] [address] Physician Edge Inker Uppers Dermatology 02/28/24 Valery Veronica PA-C [address] [place], [place] [address] Physician Edge Inker Uppers Dermatology 04/10/24 Herminia Hatch MD [address] [place] [address] Assigned Rheumatology Provider 07/02/24 documented as of this encounter
--- OUTSIDE RECORDS SUMMARY | 2024-07-22 22:47 | XMS_ITS | Encounter Summary ---
Author Organization [facility] Address [address] [place] [address] Care Team Providers Care Color Corrector Name Role Phone Lita Oseguera Unavailable Unavailable Marija Edgar OVERCOILER DENTAL ASSISTANT MEDICAL ASSISTANT Primary Care Provider + Chanelle Mccann OVERCOILER CNM Unavailab le Marija Edgar APRN DENTAL ASSISTANT MEDICAL ASSISTANT Unavailable Mynor Broussard MD Unavailable [phone] Keisha Dotson MD Unavailable Galo Burrell MD Unavailable Unavailable Diana Desir [facility] Unavailable Rain Galaviz PA-C Unavailable Summer Lara MD Unavailable [phone] Summer Lara MD Unavailable [phone] Summer Lara MD Unavailable [phone] Tavia Wyatt MD Unavailable Johnny Murillo MD Unavailable Erica Farrell OVERCOILER DENTAL ASSISTANT MEDICAL ASSISTANT Unavailable Teresita Bean [facility] Unavailable Tavia Wyatt MD Unavailable DesirDiana [facility] Unavailable [phone] Rich Barrett MD Unavailable [phone] Neil Kent MD Unavailable Roney StoryM Unavailable [phone] Erica Farrell APRN DENTAL ASSISTANT MEDICAL ASSISTANT Unavailable + Diana Desir [facility] Unavailable [phone] Jelena David OD Unavailable Galo Burrell MD Unavailable Unavailable Livan Sharif MD Unavailable + Livan Sharif MD Unavailable + Catherine Cm MD Unavailable + Valery VeronicaC Unavailable [phone] Catherine Cm MD Unavailable + Johnny Murillo MD Unavailable [phone] Brea Quinn OVERCOILER DENTAL ASSISTANT MEDICAL ASSISTANT Unavailable [phone] Brea Quinn OVERCOILER DENTAL ASSISTANT MEDICAL ASSISTANT Unavailable [phone] Jose Francisco Johnson MD Unavailable Livan Sharif MD Unavailable + Ctaherine Cm MD Unavailable + Sydnie Martinez RN Unavailable Unavailable Alfonso Renteria MD Unavailable [phone] Esha GrimmC Primary Care Provider Cheng Todd PA-C Unavailable [phone] Radha Lomeli APRN DENTAL ASSISTANT MEDICAL ASSISTANT Unavailable [phone] Jelena David OD Unavailable Jake, Pao RN Unavailable Unavailable [place], Esha M PA-C Unavailable [phone] Valery Veronica PA-C Unavailable [phone] Rey Tay MD Unavailable Duane Rockyanne STEVENS Unavailable Philip Dumont MD Unavailable [phone] Meredith Carrera PA-C Unavailable [phone] Neil Kent MD Unavailable Juan Pablo Emmanuel MD Unavailable [phone] Audrey Waite PA-C Unavailable [phone] Valery Veronica PA-C Unavailable [phone] Herminia Hatch MD Unavailable Encounter Details Date Type Department Care Team (Late st Contact Info) Description 05/05/2021 [facility] Medical Advice [address] [address] Lauren Gan RN Social History [...] you attend chur ch or episcopalian services? More than 4 times per year [...] in a mcfp (including now)? No 08/11/2020 [place] Depression Scale Answer Date Recorded [place] Depression Score 5 01/14/2021 Last EPDS Self Harm Result Not on file 01/14 Education Answer Date Recorded What is the highest level of school you have completed or the highest degree you have received? 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 PREPARER SAMPLES AND REPAIRS Gender Identity Female 03/02/2021 5:45 PM CDT [...] CDT Office Visit [facility] [address], [address] [place] [address] [place] [address] [address] [place] [address] IsamarJohnny mead MD [address] [place] [address] 11/28/2024 7:45 AM CDT Virtual Visit [facility] [address] 4th [place] [phone] Meredith Carrera PA-C [address] [place] [address] 536165 documented as of this encounter Visit Diagnoses Not on filedocumented in this encounter Additional Health Concerns Infection Onset Date Last Indicated Resolved Time Rule Out COVID-19 05/11/2021 05/11/2021 05/13/2021 10:18 AM CDT Rule Out COVID-19 07/13/2021 07/13/2021 07/14/2021 3:04 PM PREPARER SAMPLES AND REPAIRS Rule Out COVID-19 07/18/2021 07/18/2021 07/20/2021 1:56 PM PREPARER SAMPLES AND REPAIRS COVID-19 07/18/2021 07/18/2021 08/08/2021 11:3 9 PM PREPARER SAMPLES AND REPAIRS Rule Out COVID-19 12/18/2021 12/18/2021 12/19/2021 11:34 AM CDT Rule Out COVID-19 02/24/2022 02/24/2022 02/25/2022 1:08 PM CDT Rule Out COVID-19 04/26/2022 04/26/2022 04/26/2022 6:47 AM CDT Rule Out COVID-19 05/17/2022 05/17/2022 05/17/2022 10:20 PM PREPARER SAMPLES AND REPAIRS Rule Out COVID-19 06/09/2022 06/09/2022 06/09/2022 9:35 AM PREPARER SAMPLES AND REPAIRS COVID-19 06/09/2022 06/09/2022 06/30/2022 11:4 1 PM PREPARER SAMPLES AND REPAIRS Rule Out COVID-19 11/10/2022 11/10/2022 11/11/2022 12:17 PM CDT Rule Out COVID-19 03/07/2023 03/07/202303/0703/07/2023 1:20 PM CDT Rule Out COVID-19 12/26/2023 12/26/2023 12/26/2023 9:50 AM CDT Rule Out COVID-19 04/09/2024 04/09/2024 04/10/2024 6:48 PM CDT Assessment Noted Time PHQ-9 Depression Total Score: 2 04/02/20 10:19 AM CDT documented as of this encounter Care Teams Color Corrector Relationship Specialty Start Date End Date Marija Edgar APRN DENTAL ASSISTANT MEDICAL ASSISTANT PCP - General Nurse Practitioner 04/30/20 04/14/23 Esha Grimm PA-C [address] [place] [address] PCP - General Family Medicine 05/04/23 Lita Oseguera Personal Advocate & Liaison (PAL) 02/28/20 03/27/23 [place] [address] [place] [address] 200 [place], [place] 519267 Assigned OBGYN Provider 05/02/2005/09 Marija Edgar APRN DENTAL ASSISTANT MEDICAL ASSISTANT Assigned PCP 06/08/20 04/29/23 Mynor Broussard MD 6363 [facility] 500 [place], [place] 16[address]15 Assigned Surgical Provider 06/01/20 11/28/21 Keisha Dotson MD 909 [place], [place] 403115 Assigned Neuroscience Provider 06/04/20 04/01/23 Galo Burrell MD Assigned Heart and Vascular Provider 10/05/20 04/02/22 Diana Desir, [facility] 3033 [place] [address] Pharmacist Pharmacist 04/17/21 Rain Galaviz PA-C [address] [place] [address] [place] [address] Physician High School Science Teacher Dermatology 04/28/21 Summer Lara MD [address] [place] [address] Assigned OBGYN Provider 05/10/2105/23 Summer Lara MD [address] [place], [place] 6[address] Assigned OBGYN Provider 05/31/21 2 Summer Lara MD [address] [place], [place] 742[address] Assigned OBGYN Provider 05/24/2105/30 Tavia Wyatt MD [address] [place], [place] 8[address] Dermatology 07/14/21 Johnny Murillo MD [address] [facility] [address] [place] [address] Assigned Musculoskeletal Provider 08/30/21 03/17/22 Erica Farrell APRN DENTAL ASSISTANT MEDICAL ASSISTANT 6405 [facility] [address] [place], [place] [address] Nurse Practitioner Cardiovascular Disease 09/09/21 Teresita Bean [facility] [address] [place] [place] [address] Pharmacist Pharmacist 09/24/21 09/29/21 Tavia Wyatt MD [address] [place] [address] Assigned Surgical Provider 11/29/21 05/07/22 Diana Desir, [facility] 30[address] [place] [address] Assigned MTM Pharmacist 01/02/22 Rich Barrett MD [address] 483[address] Physician Ophthalmology 01/21/22 Neil Kent MD 500 [place], [place] 78[address]55 Dermatology 02/24/22 Roney Story DPM [address] [facility] [address] [place] [address] Assigned Musculoskeletal Provider 03/20/22 08/13/22 Erica Farrell APRN DENTAL ASSISTANT MEDICAL ASSISTANT 1700 [place] [address] Assigned Heart and Vascular Provider 04/03/22 04/16/22 Diana Desir, [facility] [address] [place], [place] [address] Assigned MTM Pharmacist 04/07/22 Frankie Jelena GarciaSONJA [address] [facility] [place] [address] Assigned Surgical Provider 05/08/22 10/08/22 Galo Burrell MD Assigned Heart and Vascular Provider 04/17/22 06/11/22 Livan Sharif MD [address] [place] [address] Cardiovascular Disease 05/14/22 Livan Sharif MD [address], [address] [address] [place] 6[address]05 Assigned Heart and Vascular Provider 06/12/22 07/23/22 Catherine Cm MD [address] [place] [address]05 Cardiovascular Disease 07/21/22 Valery Veronica, PA-C [address] [place], [place] 9939[address] Physician High School Science Teacher Dermatology 07/21/22 Catherine Cm MD [address] [address] [place] [address]345 Assigned Heart and Vascular Provider 07/24/22 11/05/22 Johnny Murillo MD [facility] [address] [place] [address] Assigned Musculoskeletal Provider 08/14/22 10/08/22 Brea Quinn APRN DENTAL ASSISTANT MEDICAL ASSISTANT 500 [place] [address] Nurse Practitioner Dermatology 09/21/22 Brea Quinn APRN DENTAL ASSISTANT MEDICAL ASSISTANT 6401 [place] [address] Assigned Surgical Provider 10/09/22 05/01/24 [place] [address] [address] Assigned Musculoskeletal Provider 10/09/22 05/01/24 Livan Sharif MD [address], [facility] [address] [place] [address] Assigned Heart and Vascular Provider 11/06/22 11/12/22 Catherine Cm MD 6405 [facility] [place], [place] [address] Assigned Heart and Vascular Provider 11/13/22 05/27/23 Sydnie Martinez RN Personal Advocate & Liaison (PAL) Family Medicine 03/28/23 07/31/23 Alfonso Renteria MD 5775 [facility] 200 [place] [address] Assigned Neuroscience Provider 04/02/23 Cheng Todd PA-C [address] [place] [address] [id number] Assigned PCP 04/30/23 07/15/23 Radha Lomeli APRN CNP 6[address] [facility] [address] [place] [address] Assigned Heart and Vascular Provider 05/28/23 Jelena David OD [address] [facility] [place] [address] MD Ophthalmology 06/15/23 Pao Joseph, VJ Personal Advocate & Liaison (PAL) Nurse 08/01/23 11/07/23 Esha Grimm PA-C [address] [place] [phone] Assigned PCP 07/16/23 Valery Veronica PA-C [address] [place] [address] Physician High School Science Teacher Dermatology 09/19/23 Rey Tay MD [address] [place] [address] MD Gastroenterology 09/20/23 Rocky Zepeda DO [address] [place] [address] 477885 Physician Gastroenterology 09/20/23 Philip Dumont MD [address] [place] [address] 048215 Physician Ophthalmology 09/22/23 Meredith Carrera PA-C [address] [place] [address] 221365 Assigned Gastroenterology Provider 11/01/23 Neil Kent MD [address] [address] Dermatology 11/02/23 [place] [address] 082727 Neurological Surgery 12/26/23 Audrey Waite PA-C 500 [place] [address] Physician High School Science Teacher Dermatology 02/28/24 Valery Veronica PA-C [address]78 [address] [place] [address] Physician High School Science Teacher Dermatology 04/10/24 Herminia Hatch MD [facility]5 [place], [place] [address] Assigned Rheumatology Provider 07/02/24 documented as of this encounter
--- OUTSIDE RECORDS SUMMARY | 2024-07-22 22:47 | XMS_ITS | Encounter Summary ---
Author Organization [place] Address [address] [place] [address] Care Team Providers Care Dye Reel Operator Helper Name Role Phone Lita Oseguera Unavailable Unavailable Marija Edgar CAN SOLDERER COLLEGE FOOTBALL COACH Primary Care Provider + Chanelle Mccann CAN SOLDERER CNM Unavailab le Marija Edgar APRN COLLEGE FOOTBALL COACH Unavailable [phone] Mynor Broussard MD Unavailable [phone] Keisha Dotson MD Unavailable [phone] Galo Burrell MD Unavailable Unavailable Diana Desir [facility] Unavailable Rain Galaviz PA-C Unavailable Summer Lara MD Unavailable [phone] Summer Lara MD Unavailable [phone] Summer Lara MD Unavailable [phone] Tavia Wyatt MD Unavailable Johnny Murillo MD Unavailable Erica Farrell CAN SOLDERER COLLEGE FOOTBALL COACH Unavailable Teresita Bean [facility] Unavailable [phone] Tavia Wyatt MD Unavailable DesirDiana [facility] Unavailable [phone] Rich Barrett MD Unavailable [phone] Neil Kent MD Unavailable Roney StoryM Unavailable [phone] Erica Farrell APRN COLLEGE FOOTBALL COACH Unavailable + Diana Desir [facility] Unavailable [phone] Jelena David OD Unavailable [phone] Galo Burrell MD Unavailable Unavailable Livan Sharif MD Unavailable + Livan Sharif MD Unavailable + Catherine Cm MD Unavailable + Valery VeronicaC Unavailable [phone] Catherine Cm MD Unavailable + Johnny Murillo MD Unavailable [phone] Brea Quinn CAN SOLDERER COLLEGE FOOTBALL COACH Unavailable [phone] Brea Quinn CAN SOLDERER COLLEGE FOOTBALL COACH Unavailable [phone] Jose Francisco Johnson MD Unavailable Livan Sharif MD Unavailable + Catherine Cm MD Unavailable + Sydnie Martinez RN Unavailable Unavailable Alfonso Renteria MD Unavailable [phone] Esha GrimmC Primary Care Provider Cheng Todd PA-C Unavailable [phone] Radha Lomeli APRN COLLEGE FOOTBALL COACH Unavailable [phone] Jelena David OD Unavailable [phone] Jake, Pao RN Unavailable Unavailable Alfa, Esha M PA-C Unavailable [phone] Valery Veronica PA-C Unavailable Rey Tay MD Unavailable Duane Rockyanne STEVENS Unavailable Philip Dumont MD Unavailable [phone] Meredith Carrera PA-C Unavailable [phone] Neil Kent MD Unavailable Juan Pablo Emmanuel MD Unavailable [phone] Audrey Waite PA-C Unavailable [phone] Valery Veronica PA-C Unavailable [phone] [place]inia Hatch MD Unavailable Encounter Details Date Type Department Care Team (Late st Contact Info) Description 04/28/2021 MyC Medical Advice [address] [address] Lauren Gan RN Social History [...] you attend chur ch or christian services? More than 4 times [...] Answer Date Recorded PHQ-2 Score 0 04/02/2021 [facility] [...] a skilled nursing (including now)? No 08/11/2020 [place] Depression Scale Answer Date Recorded [place] Depression Score 5 01/14/2021 Last EPDS Self Harm Result Not on file 01/14 Education Answer Date Recorded What is the highest level of school you have completed or the highest degree you have received? 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 SHADE BANDER Gender Identity Female 03/02/2021 5:45 PM CDT [...] AM CDT Office Visit [facility] [address], [address] [place] [address] [place] [address] [place] [address] IsamarJohnny farnsworth MD [address] [place] [address] 11/28/2024 7:45 AM CDT Virtual Visit [facility] [address] 4th [place] [phone] Meredith Crarera PA-C [address] [place] [address] 587255 documented as of this encounter Visit Diagnoses Not on filedocumented in this encounter Additional Health Concerns Infection Onset Date Last Indicated Resolved Time Rule Out COVID-19 05/11/2021 05/11/2021 05/13/2021 10:18 AM CDT Rule Out COVID-19 07/13/2021 07/13/2021 07/14/2021 3:04 PM SHADE BANDER Rule Out COVID-19 07/18/2021 07/18/2021 07/20/2021 1:56 PM SHADE BANDER COVID-19 07/18/2021 07/18/2021 08/08/2021 11:3 9 PM SHADE BANDER Rule Out COVID-19 12/18/2021 12/18/2021 12/19/2021 11:34 AM CDT Rule Out COVID-19 02/24/2022 02/24/2022 02/25/2022 1:08 PM CDT Rule Out COVID-19 04/26/2022 04/26/2022 04/26/2022 6:47 AM CDT Rule Out COVID-19 05/17/2022 05/17/2022 05/17/2022 10:20 PM SHADE BANDER Rule Out COVID-19 06/09/2022 06/09/2022 06/09/2022 9:35 AM SHADE BANDER COVID-19 06/09/2022 06/09/2022 06/30/2022 11:4 1 PM SHADE BANDER Rule Out COVID-19 11/10/2022 11/10/2022 11/11/2022 12:17 PM CDT Rule Out COVID-19 03/07/2023 03/07/202303/07/2023 1:20 PM CDT Rule Out COVID-19 12/26/2023 12/26/2023 12/26/2023 9:50 AM CDT Rule Out COVID-19 04/09/2024 04/09/2024 04/10/2024 6:48 PM CDT Assessment Noted Time PHQ-9 Depression Total Score: 2 04/02/20 10:19 AM CDT documented as of this encounter Care Teams Dye Reel Operator Helper Relationship Specialty Start Date End Date Marija Edgar APRN COLLEGE FOOTBALL COACH PCP - General Nurse Practitioner 04/30/20 04/14/23 Esha Grimm PA-C [address] [place] [phone] PCP - General Family Medicine 05/04/23 Lita Oseguera Personal Advocate & Liaison (PAL) 02/28/20 03/27/23 [place] [address] [place] [address] 200 [place], [place] 038867 Assigned OBGYN Provider 05/02/2005/09 Marija Edgar APRN COLLEGE FOOTBALL COACH Assigned PCP 06/08/20 04/29/23 Mynor Broussard MD 6363 [facility] 500 [place], [place] 564125 Assigned Surgical Provider 06/01/20 11/28/21 Keisha Dotson MD 909 [place], [place] 861385 Assigned Neuroscience Provider 06/04/20 04/01/23 Galo Burrell MD Assigned Heart and Vascular Provider 10/05/20 04/02/22 Diana Desir, [facility] 3033 [place] [address] Pharmacist Pharmacist 04/17/21 Rain Galaviz PA-C [address] [place] [address] [place] [address] Physician Sling Operator Dermatology 04/28/21 Summer Lara MD [address] [place] [address] Assigned OBGYN Provider 05/10/2105/23 Summer Lara MD [address] [place], [place] 9284[address] Assigned OBGYN Provider 05/31/21 2 Summer Lara MD [address] [place], [place] 470[address] Assigned OBGYN Provider 05/24/2105/30 Tavia Wyatt MD [address] [place], [place] [address] Dermatology 07/14/21 Johnny Murillo MD [address] [facility] [address] [place] [address] Assigned Musculoskeletal Provider 08/30/21 03/17/22 Erica Farrell APRN COLLEGE FOOTBALL COACH [address] [facility] [address] [place], [place] 329225 Nurse Practitioner Cardiovascular Disease 09/09/21 Teresita Bean [facility] [address] [facility] [place] [address] Pharmacist Pharmacist 09/24/21 09/29/21 Tavia Wyatt MD [address] [place] [address] Assigned Surgical Provider 11/29/21 05/07/22 Diana Desir, [facility] [address] [place] [address] Assigned MTM Pharmacist 01/02/22 Rich Barrett MD [address] 0455[address] Physician Ophthalmology 01/21/22 Neil Kent MD 500 [place], [place] 126235 Dermatology 02/24/22 [place] [address] [facility] [address] [place] [address] Assigned Musculoskeletal Provider 03/20/22 08/13/22 Erica Farrell APRN COLLEGE FOOTBALL COACH 1700 [place] [address] Assigned Heart and Vascular Provider 04/03/22 04/16/22 [facility] [address] [place], [place] 471626 Assigned MTM Pharmacist 04/07/22 Frankie Jelena Temple[place]JA woods [address] [facility] [place] [address] Assigned Surgical Provider 05/08/22 10/08/22 Galo Burrell MD Assigned Heart and Vascular Provider 04/17/22 06/11/22 Livan Sharif MD [address] [place] 206705 Cardiovascular Disease 05/14/22 Livan Sharif MD [address] [place] 6[address]145 Assigned Heart and Vascular Provider 06/12/22 07/23/22 Catherine Cm MD [address] [facility] [address] [place] 0[address]185 Cardiovascular Disease 07/21/22 Valery Veronica, PA-C 909 [place], [place] 106275 Physician Sling Operator Dermatology 07/21/22 Catherine Cm MD [address] [place] 184575 Assigned Heart and Vascular Provider 07/24/22 11/05/22 Johnny Murillo MD [address] [address] Assigned Musculoskeletal Provider 08/14/22 10/08/22 Brea Quinn APRN COLLEGE FOOTBALL COACH [address] [place] [address] Nurse Practitioner Dermatology 09/21/22 Brea Quinn APRN COLLEGE FOOTBALL COACH 6401 [place] [address] Assigned Surgical Provider 10/09/22 05/01/24 [place] [address] [facility] 300 [place] [address] Assigned Musculoskeletal Provider 10/09/22 05/01/24 Livan Sharif MD [address], [facility] [address] [place] [address] Assigned Heart and Vascular Provider 11/06/22 11/12/22 Catherine Cm MD [address] [facility] [address] [place] [address] Assigned Heart and Vascular Provider 11/13/22 05/27/23 Sydnie Martinez RN Personal Advocate & Liaison (PAL) Family Medicine 03/28/23 07/31/23 Alfonso Renteria MD 5775 [facility] 200 [place] [address] Assigned Neuroscience Provider 04/02/23 Cheng Todd PA-C [address] [place] [address] [id number] Assigned PCP 04/30/23 07/15/23 Radha Lomeli APRN CNP 6[address] [facility] [address] [place] [address] Assigned Heart and Vascular Provider 05/28/23 Jelena David OD [address] [facility] [place] [address] MD Ophthalmology 06/15/23 Pao Joseph, VJ Personal Advocate & Liaison (PAL) Nurse 08/01/23 11/07/23 Esha Grimm PA-C [address] [place] [phone] Assigned PCP 07/16/23 Valery Veronica PA-C [address] [place] [address] 337135 Physician Sling Operator Dermatology 09/19/23 Rey Tay MD [address] [place] [address] 778975 MD Gastroenterology 09/20/23 Rocky Zepeda DO [address] [place] [address] 787745 Physician Gastroenterology 09/20/23 Philip Dumont MD [address] [place] [address] 671155 Physician Ophthalmology 09/22/23 Meredith Carrera PA-C [address] [place] [address] 553495 Assigned Gastroenterology Provider 11/01/23 Neil Kent MD [address] [address] Dermatology 11/02/23 [place] [address] [facility] [place] [address] 744907 Neurological Surgery 12/26/23 Audrey Waite PA-C 500 [place] [address] Physician Sling Operator Dermatology 02/28/24 Valery Veronica PA-C 303374 [address] [address] Physician Sling Operator Dermatology 04/10/24 Herminia Hatch MD [facility]5 [place], [place] [address] Assigned Rheumatology Provider 07/02/24 documented as of this encounter
--- OUTSIDE RECORDS SUMMARY | 2024-07-22 22:47 | XMS_ITS | Encounter Summary ---
Author Organization [place] Address [address] [place] [address] Care Team Providers Care Advisory Software Engineer Name Role Phone Lita Oseguera Unavailable Unavailable Marija Edgar APRN METAL DRAWER Primary Care Provider + Marija Edgar APRN METAL DRAWER Unavailable Mynor Broussard MD Unavailable [phone] Keisha Dotson MD Unavailable Galo Burrell MD Unavailable Unavailable Diana Desir [facility] Unavailable [phone] Rain Galaviz PA-C Unavailable Summer Lara MD Unavailable [phone] Tavia Wyatt MD Unavailable Johnny Murillo MD Unavailable Erica Farrell APRN METAL DRAWER Unavailable Teresita Bean [facility] Unavailable Tavai Wyatt MD Unavailable Diana Desir [facility] Unavailable Rich Barrett MD Unavailable [phone] Neil Kent MD Unavailable Roney Story DPM Unavailable Erica Farrell NEUROPHYSIOLOGY TECH METAL DRAWER Unavailable Thang Diana Stanislav [facility] Unavailable Jelena David OD Unavailable [phone] Galo Burrell MD Unavailable Unavailable Livan Sharif MD Unavailable + Livan Sharif MD Unavailable + Catherine Cm MD Unavailable + Valery Veronica PA-C Unavailable [phone] Catherine Cm MD Unavailable + Johnny Murillo MD Unavailable [phone] Brea Quinn NEUROPHYSIOLOGY TECH METAL DRAWER Unavailable [phone] Brea Quinn NEUROPHYSIOLOGY TECH METAL DRAWER Unavailable [phone] Jose Francisco Johnson MD Unavailable Livan Sharif MD Unavailable + IsCatherine hobbs MD Unavailable + Sydnie Martinez RN Unavailable Unavailable Alfonso Renteria MD Unavailable Esha Grimm-C Primary Care Provider Cheng Todd PA-C Unavailable Radha Lomeli NEUROPHYSIOLOGY TECH METAL DRAWER Unavailable [phone] Jelena David OD Unavailable Pao Joseph RN Unavailable Unavailable Esha Grimm-C Unavailable [phone] JeremíasValery damon PA-C Unavailable [phone] Rey Tay MD Unavailable Rocky Zepeda DO Unavailable Philip Dumont MD Unavailable [phone] Meredith CarreraC Unavailable [phone] Neil Kent MD Unavailable Juan Pablo Emmanuel MD Unavailable [phone] Audrey WaiteC Unavailable [phone] Valery Veronica PA-C Unavailable [phone] Herminia Hatch MD Unavailable Encounter Details Date Type Department Care Team (Late st Contact Info) Description 06/25/2021 [facility] [address] [address] [facility] 30[address] [place] [address] Psoriasis (Primary Dx) Social History Tobacco Use [...] in a custodial (including now)? No 08/11/2020 [place] Depression Scale Answer Date Recorded [place] Depression Score 5 01/14/2021 Last EPDS Self Harm Result Not on file 01/14 Education Answer Date Recorded What is the highest level of school you have completed or the highest degree you have received? 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 PERFECT BIND MACHINE OPERATOR Gender Identity Female 03/02/2021 5:45 PM CDT Sexual Orientation Straight 02/28/2020 12 :51 AM CDT COVID-19 Exposure Response Date Recorded In the last month, have you been in contact with someone who was confirmed or suspected to have Coronavirus / COVID-19? No / Unsure 06/26/2021 8:28 AM PERFECT BIND MACHINE OPERATOR documented as of this encounter Miscellaneous Notes * Telephone Encounter - Diana Desir [facility] - 06/26/2021 9:53 AM CST Discussed with PCP and verbal approval for betamethasone cream. Diana Desir, PharmD Medication Therapy Management Provider, [facility] Pager: [phone] ECT BIND MACHINE OPERATOR documented in this encounter Plan of Treatment Upcoming Encounters Date Type Department Care Team (Late st Contact Info) Description 10/23/2024 9:30 AM CDT Office Visit [facility] [place] [address] [facility], [address] [place] [phone] [place] [address] [place], [place] [address]68[address] Johnny Penn MD [address] [place] [address] 11/28/2024 7:45 AM CDT Virtual Visit [facility] [address] 4th [place] [phone] Meredith Carrera PA-C [address] [place] [address] 675765 documented as of this encounter Visit Diagnoses Diagnosis Psoriasis- Primary Other psoriasis documented in this encounter Additional Health Concerns Infection Onset Date Last Indicated Resolved Time Rule Out COVID-19 07/13/2021 07/13/2021 07/14/2021 3:04 PM PERFECT BIND MACHINE OPERATOR Rule Out COVID-19 07/18/2021 07/18/2021 07/20/2021 1:56 PM PERFECT BIND MACHINE OPERATOR COVID-19 07/18/2021 07/18/2021 08/08/2021 11:3 9 PM PERFECT BIND MACHINE OPERATOR Rule Out COVID-19 12/18/2021 12/18/2021 12/19/2021 11:34 AM CDT Rule Out COVID-19 02/24/2022 02/24/2022 02/25/2022 1:08 PM CDT Rule Out COVID-19 04/26/2022 04/26/2022 04/26/2022 6:47 AM CDT Rule Out COVID-19 05/17/2022 05/17/2022 05/17/2022 10:20 PM PERFECT BIND MACHINE OPERATOR Rule Out COVID-19 06/09/2022 06/09/2022 06/09/2022 9:35 AM PERFECT BIND MACHINE OPERATOR COVID-19 06/09/2022 06/09/2022 06/30/2022 11:4 1 PM PERFECT BIND MACHINE OPERATOR Rule Out COVID-19 11/10/2022 11/10/2022 11/11/2022 12:17 PM CDT Rule Out COVID-19 03/07/2023 03/07/2023 03/07/2023 1:20 PM CDT Rule Out COVID-19 12/26/2023 12/26/2023 12/26/2023 9:50 AM CDT Rule Out COVID-19 04/09/2024 04/09/2024 04/10/2024 6:48 PM CDT Assessment Noted Time PHQ-9 Depression Total Score: 2 04/02/20 10:19 AM CDT documented as of this encounter Care Teams Advisory Software Engineer Relationship Specialty Start Date End Date Marija Edgar APRN METAL DRAWER PCP - General Nurse Practitioner 04/30/20 04/14/23 Esha Grimm PA-C [address] [place] [address] PCP - General Family Medicine 05/04/23 Lita Oseguera Personal Advocate & Liaison (PAL) 02/28/20 03/27/23 Marija Edgar APRN METAL DRAWER Assigned PCP 06/08/20 04/29/23 Mynor Broussard MD [address] [address] Assigned Surgical Provider 06/01/20 11/28/21 Keisha Dotson MD 909 [place] [address] Assigned Neuroscience Provider 06/04/20 04/01/23 Galo Burrell MD Assigned Heart and Vascular Provider 10/05/20 04/02/22 Diana Desir [facility] [address] [place] [address] Pharmacist Pharmacist 04/17/21 Rain Galaviz PA-C [address] [place] [address] [place] [address] Physician Nurse Staff Dermatology 04/28/21 Summer Lara MD [address] [place] [address] Assigned OBGYN Provider 05/31/21 2 Tavia Wyatt MD [address] [place] [address] 636864 Dermatology 07/14/21 Johnny Murillo MD [address] [facility] [address] [place] [address] Assigned Musculoskeletal Provider 08/30/21 03/17/22 Erica Farrell APRN METAL DRAWER [address] [facility] [address] [place] [address] Nurse Practitioner Cardiovascular Disease 09/09/21 Teresita Bean, [facility] [address] [place] [phone] Pharmacist Pharmacist 09/24/21 09/29/21 Tavia Wyatt MD [facility] [address] [place], [place] 4696[address] Assigned Surgical Provider 11/29/21 05/07/22 Diana Desir, [facility] [address] [place] [address] Assigned MTM Pharmacist 01/02/22 Rich Barrett MD [address] [address] Physician Ophthalmology 01/21/22 Neil Kent MD [address] [place] [address] Dermatology 02/24/22 [place]oney Story D[place] [address] [facility] [address] [place] [address] Assigned Musculoskeletal Provider 03/20/22 08/13/22 Erica Farrell APRN METAL DRAWER [facility] [place] [address] Assigned Heart and Vascular Provider 04/03/22 04/16/22 Diana Desir, [facility] [address] [place] [address] Assigned MTM Pharmacist 04/07/22 Jelena David OD [facility] [facility] [place] [address] Assigned Surgical Provider 05/08/22 10/08/22 Galo Burrell MD Assigned Heart and Vascular Provider 04/17/22 06/11/22 Livan Sharif MD [address] [place] [address] Cardiovascular Disease 05/14/22 Livan Sharif MD [address] [place] [address] Assigned Heart and Vascular Provider 06/12/22 07/23/22 Catherine Cm MD [address] [place] 645255 Cardiovascular Disease 07/21/22 Valery Veronica, PAUcheC [address] [place] [address] 490895 Physician Nurse Staff Dermatology 07/21/22 Catherine Cm MD [address] [place] 128975 Assigned Heart and Vascular Provider 07/24/22 11/05/22 Johnny Murillo MD [facility] [address] 364[address] Assigned Musculoskeletal Provider 08/14/22 10/08/22 Brea Quinn APRN METAL DRAWER [address] [place] [address] 890175 Nurse Practitioner Dermatology 09/21/22 Brea Quinn APRN METAL DRAWER [address] [place] [address] [place] 406602 Assigned Surgical Provider 10/09/22 05/01/24 [place] [address] [place] [address] Assigned Musculoskeletal Provider 10/09/22 05/01/24 Livan Sharif MD [address] [place] 855895 Assigned Heart and Vascular Provider 11/06/22 11/12/22 Catherine Cm MD [address] [place] [address] Assigned Heart and Vascular Provider 11/13/22 05/27/23 Sydnie Martinez RN Personal Advocate & Liaison (PAL) Family Medicine 03/28/23 07/31/23 Alfonso Renteria MD 5775 [facility] 200 [place], [place] 186796 Assigned Neuroscience Provider 04/02/23 hCeng Todd PA-C [address] [place] [address] [id number] Assigned PCP 04/30/23 07/15/23 Radha Lomeli, NEUROPHYSIOLOGY TECH METAL DRAWER [address] [place] 579675 Assigned Heart and Vascular Provider 05/28/23 Jelena David OD [address] [facility] [place] [address] Ophthalmology 06/15/23 Pao Joseph, RN Personal Advocate & Liaison (PAL) Nurse 08/01/23 11/07/23 Esha Grimm PA-C [address] [place] [address] Assigned PCP 07/16/23 Valery Veronica PA-C [address] [place] [address] Physician Nurse Staff Dermatology 09/19/23 Rey Tay MD [address] [place] [address] 308405 Gastroenterology 09/20/23 Rocky Zepeda DO [address] [place] [address] 074605 Physician Gastroenterology 09/20/23 Philip Dumont MD [address] [place] [address] 669955 Physician Ophthalmology 09/22/23 Meredith Carrera PA-C [address] [place] [address] Assigned Gastroenterology Provider 11/01/23 Neil Kent MD [address] [place] [address] Dermatology 11/02/23 [place] [address] [place] [address] Neurological Surgery 12/26/23 Audrey Waite PA-C 500 [place] [address] Physician Nurse Staff Dermatology 02/28/24 Valery Veronica PA-C [address] [place] [address] Physician Nurse Staff Dermatology 04/10/24 Herminia Hatch MD [address] [place] [address] Assigned Rheumatology Provider 07/02/24 documented as of this encounter
--- OUTSIDE RECORDS SUMMARY | 2024-07-22 22:47 | XMS_ITS | Encounter Summary ---
Author Organization [facility] Address [address] [place] [address] Care Team Providers Care Parcel Post Clerk Name Role Phone Lita Oseguera Unavailable Unavailable Marija Edgar PUBLICATION DESIGNER RN OCCUPATIONAL Primary Care Provider + Chanelle Mccann PUBLICATION DESIGNER CNM Unavailab le Marija Edgar APRN RN OCCUPATIONAL Unavailable [phone] Mynor Broussard MD Unavailable [phone] Keisha Dotson MD Unavailable [phone] Galo Burrell MD Unavailable Unavailable Diana Desir [facility] Unavailable Rain Galaviz PA-C Unavailable Summer Lara MD Unavailable [phone] Summer Lara MD Unavailable [phone] Summer Lara MD Unavailable [phone] Tavia Wyatt MD Unavailable Johnny Murillo MD Unavailable [phone] Erica Farrell PUBLICATION DESIGNER RN OCCUPATIONAL Unavailable Teresita Bean [facility] Unavailable Tavia Wyatt MD Unavailable DesirDiana [facility] Unavailable [phone] Rich Barrett MD Unavailable [phone] Neil Kent MD Unavailable Roney StoryM Unavailable [phone] Erica Farrell APRN RN OCCUPATIONAL Unavailable + Diana Desir [facility] Unavailable [phone] Jelena David OD Unavailable [phone] Galo Burrell MD Unavailable Unavailable Livan Sharif MD Unavailable + Livan Sharif MD Unavailable + Catherine Cm MD Unavailable + Valery VeronicaC Unavailable [phone] Catherine Cm MD Unavailable + Johnny Murillo MD Unavailable [phone] Brea Quinn PUBLICATION DESIGNER RN OCCUPATIONAL Unavailable [phone] Brea Quinn PUBLICATION DESIGNER RN OCCUPATIONAL Unavailable [phone] Jose Francisco Johnson MD Unavailable Livan Sharif MD Unavailable + Catherine Cm MD Unavailable + Sydnie Martinez RN Unavailable Unavailable Alfonso Renteria MD Unavailable [phone] Esha GrimmC Primary Care Provider Cheng Todd PA-C Unavailable [phone] Radha Lomeli APRN RN OCCUPATIONAL Unavailable [phone] Jelena David OD Unavailable Jake, Pao RN Unavailable Unavailable Alfa, Esha M PA-C Unavailable [phone] Valery VeronicaC Unavailable Rey Tay MD Unavailable Duane Rockyanne STEVENS Unavailable Philip Dumont MD Unavailable [phone] Meredith Carrera PA-C Unavailable Neil Kent MD Unavailable Juan Pablo Emmanuel MD Unavailable Audrey Waite PA-C Unavailable Valery Veronica PA-C Unavailable Herminia Hatch MD Unavailable Encounter Details Date Type Department Care Team (Late st Contact Info) Description 04/28/2021 [facility] [address] [address] Marija Edgar APRN RN OCCUPATIONAL [facility] Formerly [facility] [address] Social History Tobacco Use [...] [facility]? More than 4 times [...] 0 04/02/2021 [facility] - Occupational Stress Questionnaire Answer Date [...] PM CDT Legal Sex Female 4:13 AM GUEST SERVICES LEAD Gender Identity Female 03/02/2021 5:45 PM [...] Visit [facility] Neurology [facility] - [address], [address] [place] [address] [place] [address] [place] [address] [id number] Johnny Penn MD [address] [place] [id number] 11/28/2024 7:45 AM CDT Virtual Visit [facility] Gastroenterology Clinic [address] 4th [place] [address] Meredith Carrera PA-C [address] [place] [address] documented as of this encounter Visit Diagnoses Not on filedocumented in this encounter Additional Health Concerns Infection Onset Date Last Indicated Resolved Time Rule Out COVID-19 05/11/2021 05/11/2021 05/13/2021 10:18 AM CDT Rule Out COVID-19 07/13/2021 07/13/2021 07/14/2021 3:04 PM GUEST SERVICES LEAD Rule Out COVID-19 07/18/2021 07/18/2021 07/20/2021 1:56 PM GUEST SERVICES LEAD COVID-19 07/18/2021 07/18/2021 08/08/2021 11:3 9 PM GUEST SERVICES LEAD Rule Out COVID-19 12/18/2021 12/18/2021 12/19/2021 11:34 AM CDT Rule Out COVID-19 02/24/2022 02/24/2022 02/25/2022 1:08 PM CDT Rule Out COVID-19 04/26/2022 04/26/2022 04/26/2022 6:47 AM CDT Rule Out COVID-19 05/17/2022 05/17/2022 05/17/2022 10:20 PM GUEST SERVICES LEAD Rule Out COVID-19 06/09/2022 06/09/2022 06/09/2022 9:35 AM GUEST SERVICES LEAD COVID-19 06/09/2022 06/09/2022 06/30/2022 11:4 1 PM GUEST SERVICES LEAD Rule Out COVID-19 11/10/2022 11/10/2022 11/11/2022 12:17 PM CDT Rule Out COVID-19 03/07/2023 03/07/2023 03/07/2023 1:20 PM CDT Rule Out COVID-19 12/26/2023 12/26/2023 12/26/2023 9:50 AM CDT Rule Out COVID-19 04/09/2024 04/09/2024 04/10/2024 6:48 PM CDT Assessment Noted Time PHQ-9 Depression Total Score: 2 04/02/20 10:19 AM CDT documented as of this encounter Care Teams Parcel Post Clerk Relationship Specialty Start Date End Date Marija Edgar APRN RN OCCUPATIONAL PCP - General Nurse Practitioner 04/30/20 04/14/23 Esha Grimm PA-C [address] [place] [phone] PCP - General Family Medicine 05/04/23 Lita Oseguera Personal Advocate & Liaison (PAL) 02/28/20 03/27/23 [place] [address] [place] [address] [address] [place] [address] Assigned OBGYN Provider 05/02/2005/09 Marija Edgar APRN RN OCCUPATIONAL Assigned PCP 06/08/20 04/29/23 Mynor Broussard MD 6363 [facility] [address] [place] [address] Assigned Surgical Provider 06/01/20 11/28/21 Keisha Dotson MD 909 [place] [address] Assigned Neuroscience Provider 06/04/20 04/01/23 Galo Burrell MD Assigned Heart and Vascular Provider 10/05/20 04/02/22 Diana Desir, [facility] [address] [place] [address] Pharmacist Pharmacist 04/17/21 Rain Galaviz PA-C [address] [place] [address] [place] [address] Physician Clinical Informatics Strategist Dermatology 04/28/21 Summer Lara MD [address] [place] [address] 973374 Assigned OBGYN Provider 05/10/2105/23 Summer Lara MD [address] [place] [address] 115074 Assigned OBGYN Provider 05/31/21 2 Summer Lara MD [address] [place] [address] Assigned OBGYN Provider 05/24/2105/30 Tavia Wyatt MD [address] [place] [address] 114944 Dermatology 07/14/21 Johnny Murillo MD Formerly named [facility] [address] [place], [place] 402234 Assigned Musculoskeletal Provider 08/30/21 03/17/22 Erica Farrell APRN RN OCCUPATIONAL 6[address] [facility] [address] [place] [address] Nurse Practitioner Cardiovascular Disease 09/09/21 Teresita Bean, [facility] [address] [place] [id number] Pharmacist Pharmacist 09/24/21 09/29/21 Tavia Wyatt MD [address] [place] [address] Assigned Surgical Provider 11/29/21 05/07/22 [facility] 3033 [place] [address] Assigned MTM Pharmacist 01/02/22 Rich Barrett MD [address] [id number] Physician Ophthalmology 01/21/22 Neil Kent MD 500 [place] [address] Dermatology 02/24/22 Roney Story DPM [address] [facility] [address] [place], [place] [id number] Assigned Musculoskeletal Provider 03/20/22 08/13/22 Erica Farrell APRN RN OCCUPATIONAL 17[address] [place] [address] Assigned Heart and Vascular Provider 04/03/22 04/16/22 Diana Desir, [facility] [address] [place] [address] Assigned MTM Pharmacist 04/07/22 [place] David OD [address] [place] [address] Assigned Surgical Provider 05/08/22 10/08/22 Galo Burrell MD Assigned Heart and Vascular Provider 04/17/22 06/11/22 Livan Sharif MD [address] [place] 886[address] Cardiovascular Disease 05/14/22 Livan Sharif MD [address] [place] 964425 Assigned Heart and Vascular Provider 06/12/22 07/23/22 Catherine Cm MD [address] [place] [address] Cardiovascular Disease 07/21/22 Vlaery Veronica PA-C 909 [place], [place] 392975 Physician Clinical Informatics Strategist Dermatology 07/21/22 Catherine Cm MD [address] [place] 9[address]75 Assigned Heart and Vascular Provider 07/24/22 11/05/22 Johnny Murillo MD [address] [facility] [address] [place] [address] Assigned Musculoskeletal Provider 08/14/22 10/08/22 Brea Quinn APRN RN OCCUPATIONAL 500 [place], [place] 384265 Nurse Practitioner Dermatology 09/21/22 Brea Quinn APRN RN OCCUPATIONAL [address] [facility] [place] 465742 Assigned Surgical Provider 10/09/22 05/01/24 [place] [address] 982417 Assigned Musculoskeletal Provider 10/09/22 05/01/24 Livan Sharif MD [address], [facility] [address] [place] [address] Assigned Heart and Vascular Provider 11/06/22 11/12/22 Catherine Cm MD [address] [facility] [address] [place] [address] Assigned Heart and Vascular Provider 11/13/22 05/27/23 Sydnie Martinez, VJ Personal Advocate & Liaison (PAL) Family Medicine 03/28/23 07/31/23 Alfonso Renteria MD [address] [facility] 200 [place], [place] 793606 Assigned Neuroscience Provider 04/02/23 Cheng Todd PA-C [address] [place] [address] Assigned PCP 04/30/23 07/15/23 Radha Lomeli APRN RN OCCUPATIONAL 6405 [facility] [address] [place] [address] Assigned Heart and Vascular Provider 05/28/23 Jelena David OD [address] [place] [address] Ophthalmology 06/15/23 Pao Joseph, VJ Personal Advocate & Liaison (PAL) Nurse 08/01/23 11/07/23 Esha Grimm PA-C [address] [place] [address] Assigned PCP 07/16/23 Valery Veronica PA-C [address] [place] [address] 309865 Physician Clinical Informatics Strategist Dermatology 09/19/23 Rey Tay MD [address] [place] [address] 870415 Gastroenterology 09/20/23 Rocky Zepeda DO [address] [place] [address] 100595 Physician Gastroenterology 09/20/23 Philip Dumont MD [address] [place] [address] 657245 Physician Ophthalmology 09/22/23 Meredith Carrera PA-C 909 [place] [address] Assigned Gastroenterology Provider 11/01/23 Neil Kent MD [address] [place] [address] Dermatology 11/02/23 [place] [address] 026117 Neurological Surgery 12/26/23 Audrey Waite PA-C 500 [place] [address] Physician Clinical Informatics Strategist Dermatology 02/28/24 Valery Veronica PA-C [address] [place] [address] Physician Clinical Informatics Strategist Dermatology 04/10/24 Herminia Hatch MD [facility]5 [place], [place] [address] Assigned Rheumatology Provider 07/02/24 documented as of this encounter
--- OUTSIDE RECORDS SUMMARY | 2024-07-22 22:47 | XMS_ITS | Encounter Summary ---
Author Organization [facility] Address [address] [place] [address] Care Team Providers Care Manager Supply Chain Planning Name Role Phone Lita Oseguera Unavailable Unavailable Marija Edgar APRN FIRST OFFICER AND FLIGHT INSTRUCTOR Primary Care Provider + Marija Edgar APRN FIRST OFFICER AND FLIGHT INSTRUCTOR Unavailable Mynor Broussard MD Unavailable [phone] Keisha Dotson MD Unavailable Galo Burrell MD Unavailable Unavailable Diana Desir [facility] Unavailable Rain Galaviz PA-C Unavailable Summer Lara MD Unavailable [phone] Tavia Wyatt MD Unavailable Johnny Murillo MD Unavailable [phone] Erica Farrell APRN FIRST OFFICER AND FLIGHT INSTRUCTOR Unavailable Teresita Bean [facility] Unavailable [phone] Tavia Wyatt MD Unavailable Diana Desir [facility] Unavailable Rich Barrett MD Unavailable [phone] Neil Kent MD Unavailable Roney Story DPM Unavailable Erica Farrell PROGRAM ARRANGER FIRST OFFICER AND FLIGHT INSTRUCTOR Unavailable Thang Diana Stanislav [facility] Unavailable Jelena David OD Unavailable Galo Burrell MD Unavailable Unavailable Livan Sharif MD Unavailable + Livan Sharif MD Unavailable + Catherine Cm MD Unavailable + Valery Veronica PA-C Unavailable [phone] Catherine Cm MD Unavailable + Johnny Murillo MD Unavailable [phone] Brea Quinn PROGRAM ARRANGER FIRST OFFICER AND FLIGHT INSTRUCTOR Unavailable [phone] Brea Quinn PROGRAM ARRANGER FIRST OFFICER AND FLIGHT INSTRUCTOR Unavailable [phone] Jose Francisco Johnson MD Unavailable Livan Sharif MD Unavailable + IsCatherine hobbs MD Unavailable + Sydnie Martinez RN Unavailable Unavailable Alfonso Renteria MD Unavailable Esha Grimm-C Primary Care Provider Cheng Todd PA-C Unavailable Radha Lomeli PROGRAM ARRANGER FIRST OFFICER AND FLIGHT INSTRUCTOR Unavailable [phone] Jelena David OD Unavailable Pao Joseph RN Unavailable Unavailable Esha Grimm-C Unavailable [phone] JeremíasValery damon PA-C Unavailable [phone] Rey Tay MD Unavailable Rocky Zepeda DO Unavailable Philip Dumont MD Unavailable [phone] Meredith CarreraC Unavailable [phone] Neil Kent MD Unavailable Juan Pablo Emmanuel MD Unavailable [phone] Audrey WaiteC Unavailable [phone] Valery Veronica PA-C Unavailable [phone] Herminia Hatch MD Unavailable Encounter Details Date Type Department Care Team (Late st Contact Info) Description 08/04/2021 [facility] [address] [address] Medina Diopview Social History Tobacco [...] 08/07/2020 How often do you attend [facility] or holiness services? More than 4 times [...] a nursing home (including now)? No 08/11/2020 [place] Depression Scale Answer Date Recorded [place] Depression Score 5 01/14/2021 Last EPDS Self Harm Result Not on file 01/14 Education Answer Date Recorded What is the highest level of school you have completed or the highest degree you have received? 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 ARCHITECT MARINE Gender Identity Female 03/02/2021 5:45 PM CDT Sexual Orientation Straight 02/28/2020 12 :51 AM CDT COVID-19 Exposure Response Date Recorded In the last month, have you been in contact with someone who was confirmed or suspected to have Coronavirus / COVID-19? No / Unsure 08/03/2021 2:24 PM ARCHITECT MARINE documented as of this encounter Plan of Treatment Upcoming Encounters Date Type Department Care Team (Late st Contact Info) Description 10/23/2024 9:30 AM CDT Office Visit [facility] Neurology Clinics [address], [address] [place] [address] [place] [address] [address] [place] [address] Johnny Penn MD [address] [place] [id number] 11/28/2024 7:45 AM CDT Virtual Visit [facility] Gastroenterology Clinic [address] 4th [place] [address] Meredith Carrera PA-C [address] [place] [address] documented as of this encounter Visit Diagnoses Not on filedocumented in this encounter Additional Health Concerns Infection Onset Date Last Indicated Resolved Time COVID-19 07/18/2021 07/18/2021 08/08/2021 11:3 9 PM ARCHITECT MARINE Rule Out COVID-19 12/18/2021 12/18/2021 12/19/2021 11:34 AM CDT Rule Out COVID-19 02/24/2022 02/24/2022 02/25/2022 1:08 PM CDT Rule Out COVID-19 04/26/2022 04/26/2022 04/26/2022 6:47 AM CDT Rule Out COVID-19 05/17/2022 05/17/2022 05/17/2022 10:20 PM ARCHITECT MARINE Rule Out COVID-19 06/09/2022 06/09/2022 06/09/2022 9:35 AM ARCHITECT MARINE COVID-19 06/09/2022 06/09/2022 06/30/2022 11:4 1 PM ARCHITECT MARINE Rule Out COVID-19 11/10/2022 11/10/2022 11/11/2022 12:17 PM CDT Rule Out COVID-19 03/07/2023 03/07/2023 03/07/2023 1:20 PM CDT Rule Out COVID-19 12/26/2023 12/26/2023 12/26/2023 9:50 AM CDT Rule Out COVID-19 04/09/2024 04/09/2024 04/10/2024 6:48 PM CDT Assessment Noted Time PHQ-9 Depression Total Score: 2 04/02/20 21 10:19 AM CDT documented as of this encounter Care Teams Manager Supply Chain Planning Relationship Specialty Start Date End Date Marija Edgar APRN CNP PCP - General Nurse Practitioner 04/30/20 04/14/23 Esha Grimm PA-C [address] [place] [address] PCP - General Family Medicine 05/04/23 Lita Oseguera Personal Advocate & Liaison (PAL) 02/28/20 03/27/23 Marija Edgar APRN FIRST OFFICER AND FLIGHT INSTRUCTOR Assigned PCP 06/08/20 04/29/23 Mynor Broussard MD 6363 [facility] 500 [place] [address] Assigned Surgical Provider 06/01/20 11/28/21 Keisha Dotson MD 909 [place], [place] 265265 Assigned Neuroscience Provider 06/04/20 04/01/23 Galo Burrell MD Assigned Heart and Vascular Provider 10/05/20 04/02/22 Diana Desir, [facility] [address] [place] [address] Pharmacist Pharmacist 04/17/21 Rain Galaviz PA-C [address] [place] [address] [address] [facility] [place] [address] Physician Bookkeeping Assistant Dermatology 04/28/21 Summer Lara MD [address] [place] [address] 326754 Assigned OBGYN Provider 05/31/21 2 Tavia Wyatt MD [address] [place] [address] Dermatology 07/14/21 Johnny Murillo MD [address] [place] [address] Assigned Musculoskeletal Provider 08/30/21 03/17/22 Erica Farrell APRN FIRST OFFICER AND FLIGHT INSTRUCTOR 6405 [facility] [address] [place] [address] Nurse Practitioner Cardiovascular Disease 09/09/21 Teresita Bean, [facility] [address] [place] [phone] Pharmacist Pharmacist 09/24/21 09/29/21 Tavia Wyatt MD [address] [place], [place] 100150 Assigned Surgical Provider 11/29/21 05/07/22 Diana Desir, [facility] [address] [place] [address] Assigned MTM Pharmacist 01/02/22 iRch Barrett MD 516 [facility] 9[address] [place], [place] 5[address] Physician Ophthalmology 01/21/22 Neil Kent MD 500 [place], [place] 353435 Dermatology 02/24/22 Roney Story DPM [address] [facility] [address] [place] [address] Assigned Musculoskeletal Provider 03/20/22 08/13/22 Erica Farrell APRN FIRST OFFICER AND FLIGHT INSTRUCTOR 1700 [place] [address] Assigned Heart and Vascular Provider 04/03/22 04/16/22 Diana Desir, [facility] [address] [place], [place] 269[address] Assigned MTM Pharmacist 04/07/22 Jelena David OD 3[address] [facility] [place] [address] Assigned Surgical Provider 05/08/22 10/08/22 Galo Burrell MD Assigned Heart and Vascular Provider 04/17/22 06/11/22 Livan Sharif MD [address] [place] [address] Cardiovascular Disease 05/14/22 Livan Sharif MD [address] [place] [address] Assigned Heart and Vascular Provider 06/12/22 07/23/22 Catherine Cm MD [address] [place] [address]315 Cardiovascular Disease 07/21/22 Valery Veronica, PA-C 909 [place] [address] Physician Bookkeeping Assistant Dermatology 07/21/22 Catherine Cm MD [address] [facility] [address] [place] [address] Assigned Heart and Vascular Provider 07/24/22 11/05/22 Johnny Murillo MD [facility] [address] [address] Assigned Musculoskeletal Provider 08/14/22 10/08/22 Brea Quinn APRN FIRST OFFICER AND FLIGHT INSTRUCTOR [address] [place] [place] [address] 719255 Nurse Practitioner Dermatology 09/21/22 Brea Quinn APRN FIRST OFFICER AND FLIGHT INSTRUCTOR [address] [place] [address] [place] 357822 Assigned Surgical Provider 10/09/22 05/01/24 [place] [address] [address] Assigned Musculoskeletal Provider 10/09/22 05/01/24 Livan Sharif MD [address], [address] [place] 89[address]75 Assigned Heart and Vascular Provider 11/06/22 11/12/22 Catherine Cm MD [address] [place] 602[address] Assigned Heart and Vascular Provider 11/13/22 05/27/23 Sydnie Martinez, VJ Personal Advocate & Liaison (PAL) Family Medicine 03/28/23 07/31/23 Alfonso Renteria MD 5775 [facility] [address] [place] [address] Assigned Neuroscience Provider 04/02/23 Cheng Todd PA-C [address] [place] [address] Assigned PCP 04/30/23 07/15/23 Radha Lomeli APRN FIRST OFFICER AND FLIGHT INSTRUCTOR 6405 [facility] [address] [place] [address] Assigned Heart and Vascular Provider 05/28/23 Jelena David OD [address] [facility] [place] [address] Ophthalmology 06/15/23 Pao Joseph, VJ Personal Advocate & Liaison (PAL) Nurse 08/01/23 11/07/23 Esha Grimm PA-C [address] [place] [address] Assigned PCP 07/16/23 Valery Veronica PA-C 909 [place], [place] 7525[address] Physician Bookkeeping Assistant Dermatology 09/19/23 Rey Tay MD 909 [place] [address] Gastroenterology 09/20/23 Rocky Zepeda DO 500 [place] [address] Physician Gastroenterology 09/20/23 Philip Dumont MD 516 [place] [address] Physician Ophthalmology 09/22/23 Meredith Carrera PA-C [address] [place] [address] Assigned Gastroenterology Provider 11/01/23 Neil Kent MD [address] [address] MD Dermatology 11/02/23 [place] [address] [address] Neurological Surgery 12/26/23 Audrey Waite PA-C 500 [place] [address] Physician Bookkeeping Assistant Dermatology 02/28/24 Valery Veronica PA-C [address] [place] [address] Physician Bookkeeping Assistant Dermatology 04/10/24 Herminia Hatch MD [facility]5 [place], [place] [address] Assigned Rheumatology Provider 07/02/24 documented as of this encounter
--- OUTSIDE RECORDS SUMMARY | 2024-07-22 22:48 | XMS_ITS | Encounter Summary ---
Author Organization [place] Address [address] [place] [address]455 Care Team Providers Care Diamond Sorter Name Role Phone Lita Oseguera Unavailable Unavailable Marija Edgar APRN SAND PLANT ATTENDANT Primary Care Provider + Chanelle Mccann APRN CNM Unavailab le Kyara De La Fuente RN Unavailable [phone] Marija Edgar APRN SAND PLANT ATTENDANT Unavailable [phone] Mynor Broussard MD Unavailable [phone] Keisha Dotson MD Unavailable [phone] Galo Burrell MD Unavailable Unavailable Cristina Wood Unavailable Diana Desir [facility] Unavailable Rain Galaviz PA-C Unavailable Summer Lara MD Unavailable Summer Lara MD Unavailable [phone] Summer Lara MD Unavailable [phone] Tavia Wyatt MD Unavailable Johnny Murillo MD Unavailable Erica Farrell APRN SAND PLANT ATTENDANT Unavailable Vikas Teresita Watson [facility] Unavailable Tavia Wyatt MD Unavailable Diana Desir [facility] Unavailable [phone] Rich Barrett MD Unavailable Neil Kent MD Unavailable Roney Story DPM Unavailable [phone] Erica Farrell APRN SAND PLANT ATTENDANT Unavailable Diana Desir [facility] Unavailable [phone] Jelena David Unavailable Galo Burrell MD Unavailable Unavailable Livan Sharif MD Unavailable Livan Sharif MD Unavailable + Catherine Cm MD Unavailable + Valery Veronica-C Unavailable [phone] Catherine Cm MD Unavailable + Johnny Murillo MD Unavailable [phone] Brea Quinn FREIGHT INSPECTOR SAND PLANT ATTENDANT Unavailable [phone] Brea Quinn FREIGHT INSPECTOR SAND PLANT ATTENDANT Unavailable [phone] Jose Francisco Johnson MD Unavailable Livan Sharif MD Unavailable + Catherine Cm MD Unavailable + Sydnie Martinez RN Unavailable Unavailable Alfonso Renteria MD Unavailable [phone] Esha Grimm PA-C Primary Care Provider Cheng Todd PA-C Unavailable Radha Lomeli FREIGHT INSPECTOR SAND PLANT ATTENDANT Unavailable Jelena David OD Unavailable [phone] Pao Joseph RN Unavailable Unavailable Esha Grimm PA-C Unavailable [phone] Valery Veronica PA-C Unavailable Rey Tay MD Unavailable Rocky Zepeda DO Unavailable Philip Dumont MD Unavailable Meredith Carrera PA-C Unavailable Neil Kent MD Unavailable Juan Pablo Emmanuel MD Unavailable Audrey Waite PA-C Unavailable [phone] JeremíasValery damon PA-C Unavailable Herminia [place] MD Unavailable Encounter Details Date Type Department Care Team (Late st Contact Info) Description 01/06/2021 Orders Only [facility] - Surgical Specialties Service Line [address] [place] [address] Saurabh Marcial MD [address] [facility] [facility] [address] [place] [address] Indication for care in labor [...] Answer Date Recorded PHQ-2 Score 3 09/29/2020 [facility] [place] of Occupat ional Health - Occupational Stress [...] PM CDT Legal Sex Female 4:13 AM SIMULATION ANALYST Gender Identity Female 03/02/2021 5:45 PM [...] Description 10/23/2024 9:30 AM CDT Office Visit [address], [address] [place] [address] [place] [address] [place] [address] Johnny Penn MD [address] [place], [place] 250365 11/28/2024 7:45 AM CDT Virtual Visit [facility] [address] 4th [place] [address] Meredith Carrera PA-C [address] [place] [address] [phone] documented as of this encounter Results * Asymptomatic COVID-19 Virus (Coronavirus) by PCR (01/09/2021 10:44 AM CDT) COVID-19 Virus PCR to [facility] - Source Nasopharyngeal 01/09/2021 10:45 AM CDT [facility] COVID-19 Virus PCR to [facility] - Result Test received-See reflex to IDDL test SARS CoV2 (COVID-19) Virus RT-PCR 01/09/2021 6:32 PM CDT [facility], [facility] Specimen from nasopharyngeal structure (specimen) 01/09/2021 10:44 AM CDT 01/09/2021 10:45 AM CDT Saurabh Marcial MD LAB - MICRO GENERAL DONYA [place] Final Result [facility], [facility] [address] [place] [address], [facility] [address] [place] [address], [facility] [phone] documented in this encounter Visit Diagnoses Diagnosis Indication for care in labor and delivery, antepartum- Primary Unspecified indication for care or intervention related to labor and delivery, antepartum documented in this encounter Additional Health Concerns Infection Onset Date Last Indicated Resolved Time Rule Out COVID-19 05/11/2021 05/11/2021 05/13/2021 10:18 AM CDT Rule Out COVID-19 07/13/2021 07/13/2021 07/14/2021 3:04 PM SIMULATION ANALYST Rule Out COVID-19 07/18/2021 07/18/2021 07/20/2021 1:56 PM SIMULATION ANALYST COVID-19 07/18/2021 07/18/2021 08/08/2021 11:3 9 PM SIMULATION ANALYST Rule Out COVID-19 12/18/2021 12/18/2021 12/19/2021 11:34 AM CDT Rule Out COVID-19 02/24/2022 02/24/2022 02/25/2022 1:08 PM CDT Rule Out COVID-19 04/26/2022 04/26/2022 04/26/2022 6:47 AM CDT Rule Out COVID-19 05/17/2022 05/17/2022 05/17/2022 10:20 PM SIMULATION ANALYST Rule Out COVID-19 06/09/2022 06/09/2022 06/09/2022 9:35 AM SIMULATION ANALYST COVID-19 06/09/2022 06/09/2022 06/30/2022 11:4 1 PM SIMULATION ANALYST Rule Out COVID-19 11/10/2022 11/10/2022 11/11/2022 12:17 PM CDT Rule Out COVID-19 03/07/2023 03/07/2023 03/07/2023 1:20 PM CDT Rule Out COVID-19 12/26/2023 12/26/2023 12/26/2023 9:50 AM CDT Rule Out COVID-19 04/09/2024 04/09/2024 04/10/2024 6:48 PM CDT Assessment Noted Time PHQ-9 Depression Total Score: 6 09/30/19 21 3:25 PM CDT documented as of this encounter Care Teams Diamond Sorter Relationship Specialty Start Date End Date Marija Edgar APRN CNP PCP - General Nurse Practitioner 04/30/20 04/14/23 Esha Grimm PA-C [address] [place] [phone] PCP - General Family Medicine 05/04/23 Lita Oseguera Personal Advocate & Liaison (PAL) 02/28/20 03/27/23 Chanelle Mccann APRN CNAdam [address] [facility] [place] [address] [place] [address] Assigned OBGYN Provider 05/02/2005/09 Kyara De La Fuente, VJ Specialty Biology Instructor Neurology 06/04/20 03/05/21 Marija Edgar APRN SAND PLANT ATTENDANT Assigned PCP 06/08/20 04/29/23 Mynor Broussard MD 6363 [facility] 500 [place], [place] 486365 Assigned Surgical Provider 06/01/20 11/28/21 Keisha Dotson MD 909 [place], [place] 702265 Assigned Neuroscience Provider 06/04/20 04/01/23 Galo Burrell MD Assigned Heart and Vascular Provider 10/05/20 04/02/22 Cristina Wood Financial Resource Worker 02/09/21 02/09/21 Diana Desir, [facility] [address] [place], [place] 670736 Pharmacist Pharmacist 04/17/21 Rain Galaviz PA-C [address] [place] [address] DR [address] [facility] [address] Physician Dementia Program Director Dermatology 04/28/21 Summer Lara MD [address] [place] [address] Assigned OBGYN Provider 05/10/2105/23 Summer Lara MD [address] [place] [address] [phone] Assigned OBGYN Provider 05/31/21 Summer Lara MD [address] [place] [address] [phone] Assigned OBGYN Provider 05/24/2105/30 Tavia Wyatt MD [address] [place] [address] [phone] Dermatology 07/14/21 Johnny Murillo MD [address] [place], [place] 499244 Assigned Musculoskeletal Provider 08/30/21 03/17/22 Erica Farrell APRN SAND PLANT ATTENDANT [address] [facility] [address] [place] [phone] Nurse Practitioner Cardiovascular Disease 09/09/21 Teresita Bean, [facility] [address] [phone] Pharmacist Pharmacist 09/24/21 09/29/21 Tavia Wyatt MD [address] [place] [address] Assigned Surgical Provider 11/29/21 05/07/22 Diana Desir, [facility] [address] [place] [address] Assigned MTM Pharmacist 01/02/22 Rich Barrett MD [address] 215665 Physician Ophthalmology 01/21/22 Neil Kent MD 500 [place], [place] 427985 Dermatology 02/24/22 Roney Story DPM [address] [facility] [address] [place], [place] 013307 Assigned Musculoskeletal Provider 03/20/22 08/13/22 Erica Farrell APRN SAND PLANT ATTENDANT [address] [place] [address] Assigned Heart and Vascular Provider 04/03/22 04/16/22 Diana Desir, [facility] [address] [place] [address] Assigned MTM Pharmacist 04/07/22 Jelena David OD 3[address] [facility] [place] [address] Assigned Surgical Provider 05/08/22 10/08/22 Galo Burrell MD Assigned Heart and Vascular Provider 04/17/22 06/11/22 Livan Sharif MD [address] [place] [address] Cardiovascular Disease 05/14/22 Livan Sharif MD [address] [place] [address] Assigned Heart and Vascular Provider 06/12/22 07/23/22 Catherine Cm MD [address] [place], [place] 692345 Cardiovascular Disease 07/21/22 Valery Veronica, PA-C [address] [place] [address] [phone] Physician Dementia Program Director Dermatology 07/21/22 Catherine Cm MD [address] [place], [place] 875875 Assigned Heart and Vascular Provider 07/24/22 11/05/22 Johnny Murillo MD [facility] [address] 587044 Assigned Musculoskeletal Provider 08/14/22 10/08/22 Brea Quinn APRN SAND PLANT ATTENDANT [address] [place] [address] [phone] Nurse Practitioner Dermatology 09/21/22 Brea Quinn APRN SAND PLANT ATTENDANT [address] [place] [address] Assigned Surgical Provider 10/09/22 05/01/24 [place] [address] [place] [address] Assigned Musculoskeletal Provider 10/09/22 05/01/24 Livan Sharif MD [address] [place] [address] Assigned Heart and Vascular Provider 11/06/22 11/12/22 Catherine Cm MD [address] [place] [address] [place] [address] Assigned Heart and Vascular Provider 11/13/22 05/27/23 JuanSydnie malik, RN Personal Advocate & Liaison (PAL) Family Medicine 03/28/23 07/31/23 Alfonso Renteria MD 5775 [facility] 200 [place] [address] Assigned Neuroscience Provider 04/02/23 Cheng Todd PA-C [address] [place] [address] Assigned PCP 04/30/23 07/15/23 Radha Lomeli APRN SAND PLANT ATTENDANT [address] [place] [address] Assigned Heart and Vascular Provider 05/28/23 Jelena David OD [address] [facility] [place] [address] Ophthalmology 06/15/23 Pao Joseph, RN Personal Advocate & Liaison (PAL) Nurse 08/01/23 11/07/23 Esha Grimm PA-C [address] [place] [phone] Assigned PCP 07/16/23 Valery Veronica PA-C [address] [place] [address] 537965 Physician Dementia Program Director Dermatology 09/19/23 Rey Tay MD [address] [place] [address] 569455 MD Gastroenterology 09/20/23 Rocky Zepeda DO [address] [place] [address] 157145 Physician Gastroenterology 09/20/23 Philip Dumont MD [address] [place] [address] 056555 Physician Ophthalmology 09/22/23 Meredith Carrera PA-C [address] [place] [address] [phone] Assigned Gastroenterology Provider 11/01/23 Neil Kent MD [address] [address] Dermatology 11/02/23 [place] [address] [place] [address] Neurological Surgery 12/26/23 Audrey Waite PA-C 500 [place] [address] Physician Dementia Program Director Dermatology 02/28/24 Valery Veronica PA-C [id number] [place] [address] Physician Dementia Program Director Dermatology 04/10/24 Herminia Hatch MD [address] [place] [address] [phone] Assigned Rheumatology Provider 07/02/24 documented as of this encounter
--- OUTSIDE RECORDS SUMMARY | 2024-07-22 22:48 | XMS_ITS | Encounter Summary ---
Author Organization [place] Address [address] [place] [address] Care Team Providers Care Youth Director Name Role Phone Lita Oseguera Unavailable Unavailable Marija Edgar MARINE PILOT PROTECTION OFFICER Primary Care Provider + Chanelle Mccann MARINE PILOT CNM Unavailab le Kyara De La Fuente RN Unavailable [phone] Marija Edgar APRN PROTECTION OFFICER Unavailable Mynor Broussard MD Unavailable [phone] Keisha Dotson MD Unavailable Stacey Briones FORMING FIXER Unavailable Galo Burrell MD Unavailable Unavailable Lesley Moody CHW Unavailable [phone] Meredith Bedoya Unavailable Unavailable Cristina Wood Unavailable Diana Desir [facility] Unavailable Rain Galaviz PA-C Unavailable [phone] Summer Lara MD Unavailable [phone] Summer Lara MD Unavailable [phone] Summer Lara MD Unavailable [phone] Tavia Wyatt MD Unavailable [phone] Johnny Murillo MD Unavailable +[phone] Erica Farrell MARINE PILOT PROTECTION OFFICER Unavailable Vikas Teresita Watson [facility] Unavailable Tavia Wyatt MD Unavailable [phone] Diana Desir [facility] Unavailable [phone] Rich Barrett MD Unavailable Neil Kent MD Unavailable Roney Story DPM Unavailable [phone] Erica Farrell MARINE PILOT PROTECTION OFFICER Unavailable Diana Desir [facility] Unavailable [phone] Jelena David Unavailable Galo Burrell MD Unavailable Unavailable Livan Sharif MD Unavailable + Livan Sharif MD Unavailable + Catherine Cm MD Unavailable + Valery Veronica PA-C Unavailable [phone] Catherine Cm MD Unavailable + Johnny Murillo MD Unavailable +1- Brea Quinn MARINE PILOT PROTECTION OFFICER Unavailable [phone] Brea Quinn MARINE PILOT PROTECTION OFFICER Unavailable [phone] Jose Francisco Johnson MD Unavailable Livan Sharif MD Unavailable + Catherine Cm MD Unavailable + Sydnie Martinez RN Unavailable Unavailable Alfonso Renteria MD Unavailable [phone] Alfa, Esha M PA-C Primary Care Provider Cheng Todd PA-C Unavailable [phone] Radha Lomeli APRN PROTECTION OFFICER Unavailable Jelena David OD Unavailable Pao Joseph RN Unavailable Unavailable Esha Grimm PA-C Unavailable [phone] Valery Veronica PA-C Unavailable Rey Tay MD Unavailable Rocky Zepeda DO Unavailable Philip Dumont MD Unavailable [phone] Meredith Carrera PA-C Unavailable [phone] Neil Kent MD Unavailable Juan Pablo Emmanuel MD Unavailable [phone] Audrey Waite PA-C Unavailable JeremíasValery damon PA-C Unavailable Herminia Hatch MD Unavailable Encounter Details Date Type Department Care Team (Late st Contact Info) Description 10/24/2020 My[facility] Medical Advice [address] [address] Marija Edgar APRN PROTECTION OFFICER [address] [place] [address] Social History Tobacco Use Types [...] Answer Date Recorded PHQ-2 Score 3 09/29/2020 [facility] Occupat ional Health - [...] PM CDT Legal Sex Female 4:13 AM NEONATAL ICU COORDINATOR Gender Identity Female 03/02/2021 5:45 PM [...] 11:44 AM CDT Replied to patient via [employer]. Anthony Doe PA-C on 10/27/2020 at 11:54 AM documented in this encounter Plan of Treatment Upcoming Encounters Date Type Department Care Team (Late st Contact Info) Description 10/23/2024 9:30 AM CDT Office Visit [facility] [address] [place] [address], [address] [place] [phone] [place] [address] [place] [address] Johnny Penn MD 8119 [place] [address] 11/28/2024 7:45 AM CDT Virtual Visit [facility] [address] 4th [place] [address] Meredith Carrera PA-C [address] [place] [address] 522195 documented as of this encounter Visit Diagnoses Not on filedocumented in this encounter Additional Health Concerns Infection Onset Date Last Indicated Resolved Time Rule Out COVID-19 11/05/2020 11/05/2020 11/06/2020 1:09 PM CDT Rule Out COVID-19 05/11/2021 05/11/2021 05/13/2021 10:18 AM CDT Rule Out COVID-19 07/13/2021 07/13/2021 07/14/2021 3:04 PM NEONATAL ICU COORDINATOR Rule Out COVID-19 07/18/2021 07/18/2021 07/20/2021 1:56 PM NEONATAL ICU COORDINATOR COVID-19 07/18/2021 07/18/2021 08/08/2021 11:3 9 PM NEONATAL ICU COORDINATOR Rule Out COVID-19 12/18/2021 12/18/2021 12/19/2021 11:34 AM CDT Rule Out COVID-19 02/24/2022 02/24/2022 02/25/2022 1:08 PM CDT Rule Out COVID-19 04/26/2022 04/26/2022 04/26/2022 6:47 AM CDT Rule Out COVID-19 05/17/2022 05/17/2022 05/17/2022 10:20 PM NEONATAL ICU COORDINATOR Rule Out COVID-19 06/09/2022 06/09/2022 06/09/2022 9:35 AM NEONATAL ICU COORDINATOR COVID-19 06/09/2022 06/09/2022 06/30/2022 11:4 1 PM NEONATAL ICU COORDINATOR Rule Out COVID-19 11/10/2022 11/10/2022 11/11/2022 12:17 PM CDT Rule Out COVID-19 03/07/2023 03/07/2023 03/07/2023 1:20 PM CDT Rule Out COVID-19 12/26/2023 12/26/2023 12/26/2023 9:50 AM CDT Rule Out COVID-19 04/09/2024 04/09/2024 04/10/2024 6:48 PM CDT Assessment Noted Time PHQ-9 Depression Total Score: 6 09/30/19 21 3:25 PM CDT documented as of this encounter Care Teams Youth Director Relationship Specialty Start Date End Date Marija Edgar APRN PROTECTION OFFICER PCP - General Nurse Practitioner 04/30/20 04/14/23 Esha Grimm PA-C [address] [place] [phone] PCP - General Family Medicine 05/04/23 Lita Oseguera Personal Advocate & Liaison (PAL) 02/28/20 03/27/23 Chanelle Mccann APRN CNM [address] [place], [facility] 200 [place] [address] Assigned OBGYN Provider 05/02/2005/09 Kyara De La Fuente, RN Specialty Hand Inserter Operator Neurology 06/04/20 03/05/21 Marija Edgar APRN CNP Assigned PCP 06/08/20 04/29/23 Mynor Broussard MD 6363 [facility] 500 [place], [place] 279935 Assigned Surgical Provider 06/01/20 11/28/21 Keisha Dotson MD 909 [place], [place] 693485 Assigned Neuroscience Provider 06/04/20 04/01/23 Stacey Briones, [facility] Lead Hand Inserter Operator Primary Care - CC 08/11/2012/30 Galo Burrell MD Assigned Heart and Vascular Provider 10/05/20 04/02/22 Lesley Moody, [facility] Community Health Worker 10/23/2012/30 Meredith Bedoya Financial Resource Worker 10/23/20 11/23/20 Cristina Wood Financial Resource Worker 02/09/21 02/09/21 Diana Desir, [facility] 3033 [place] [address] Pharmacist Pharmacist 04/17/21 Rain Galaviz PA-C [address] [facility] [address] Physician Food Editor Dermatology 04/28/21 Summer Lara MD [address] [facility] [place] [address] Assigned OBGYN Provider 05/10/2105/23 Summer Lara MD [address] [facility] [place] [address] Assigned OBGYN Provider 05/31/21 Summer Lara MD 606 [facility] [place] [address] Assigned OBGYN Provider 05/24/2105/30 Tavia Wyatt MD 606 [facility] [place] [address] Dermatology 07/14/21 Johnny Murillo MD [address] [place] [address] Assigned Musculoskeletal Provider 08/30/21 03/17/22 Erica Farrell APRN PROTECTION OFFICER [address] [facility] [address] [place] [address]295 Nurse Practitioner Cardiovascular Disease 09/09/21 Teresita Bean, [facility] [address] [place] [address] Pharmacist Pharmacist 09/24/21 09/29/21 Tavia Wyatt MD [address] [place] [address] Assigned Surgical Provider 11/29/21 05/07/22 Diana Desir, [facility] 3033 [place] [address] Assigned MTM Pharmacist 01/02/22 Rich Barrett MD [address] [phone] Physician Ophthalmology 01/21/22 Neil Kent MD 500 [employer] 9[address] Dermatology 02/24/22 Roney Story DPM [address] [facility] [address] [place] [address] Assigned Musculoskeletal Provider 03/20/22 08/13/22 Erica Farrell APRN PROTECTION OFFICER 1700 [place] [address] Assigned Heart and Vascular Provider 04/03/22 04/16/22 Diana Desir, [facility] 3033 [place] [address] Assigned MTM Pharmacist 04/07/22 Jelena David OD [address] [facility] [place] [address] Assigned Surgical Provider 05/08/22 10/08/22 Galo Burrell MD Assigned Heart and Vascular Provider 04/17/22 06/11/22 Livan Sharif MD [address], [facility] [address] [place] [address] Cardiovascular Disease 05/14/22 Livan Sharif MD [address], [facility] [address] [place] [address] Assigned Heart and Vascular Provider 06/12/22 07/23/22 Catherine Cm MD [address] [facility]00 [place] [address] Cardiovascular Disease 07/21/22 Valery Veronica, PA-C [address] [place] [address] Physician Food Editor Dermatology 07/21/22 Catherine Cm MD [address] [facility] [address] [place] [address] Assigned Heart and Vascular Provider 07/24/22 11/05/22 Johnny Murillo MD [address] [place] [address] [phone] Assigned Musculoskeletal Provider 08/14/22 10/08/22 Brea Quinn APRN PROTECTION OFFICER [address] [place] [address] 479225 Nurse Practitioner Dermatology 09/21/22 Brea Quinn APRN PROTECTION OFFICER [address] [place] [address], [place] [address] Assigned Surgical Provider 10/09/22 05/01/24 [place] [address] [place] [address] Assigned Musculoskeletal Provider 10/09/22 05/01/24 Livan Sharif MD [address] [facility] [address] [place] [address] Assigned Heart and Vascular Provider 11/06/22 11/12/22 Catherine mC MD [address] [facility]00 [place] 087335 Assigned Heart and Vascular Provider 11/13/22 05/27/23 Sydnie Martinez RN Personal Advocate & Liaison (PAL) Family Medicine 03/28/23 07/31/23 Alfonso Renteria MD 5775 [facility] 200 [place] [address] Assigned Neuroscience Provider 04/02/23 Cheng Todd PA-C [address] [place] [address] Assigned PCP 04/30/23 07/15/23 Radha Lomeli APRN PROTECTION OFFICER [address] [place] [address] Assigned Heart and Vascular Provider 05/28/23 Jelena David OD 3305 [facility] [place] [address] MD Ophthalmology 06/15/23 Pao Joseph, RN Personal Advocate & Liaison (PAL) Nurse 08/01/23 11/07/23 Esha Grimm PA-C [address] [place] [phone] Assigned PCP 07/16/23 Valery Veronica PA-C [address] [place] [address] Physician Food Editor Dermatology 09/19/23 Rey Tay MD [address] [place] [address] MD Gastroenterology 09/20/23 Rocky Zepeda DO [address] [place] [address] Physician Gastroenterology 09/20/23 Philip Dumont MD [address] [place] [address] Physician Ophthalmology 09/22/23 Meredith Carrera PA-C [address] [place] [address] Assigned Gastroenterology Provider 11/01/23 Neil Kent MD [address] 635850 Dermatology 11/02/23 [place] [address] [place] [address] Neurological Surgery 12/26/23 Audrey Waite PA-C 500 [place] [address] Physician Food Editor Dermatology 02/28/24 Valery Veronica PA-C [address] [place] [address] Physician Food Editor Dermatology 04/10/24 Herminia Hatch MD [address] [place] [address] [id number] Assigned Rheumatology Provider 07/02/24 documented as of this encounter
--- OUTSIDE RECORDS SUMMARY | 2024-07-22 22:48 | XMS_ITS | Encounter Summary ---
Author Organization [place] Address [address] [place] [address] Care Team Providers Care Well Drill Operator Rotary Drill Name Role Phone Lita Oseguera Unavailable Unavailable Marija Edgar APRN BOOKS SALESPERSON Primary Care Provider + Chanelle Mccann APRN CNM Unavailab le Kyara De La Fuente RN Unavailable [phone] Marija Edgar APRN BOOKS SALESPERSON Unavailable Mynor Broussard MD Unavailable [phone] Keisha Dotson MD Unavailable Stacey Briones HUMAN RESOURCES FILE CLERK Unavailable [phone] Lesley Moody CHW Unavailable [phone] Mary Mejia Unavailable Unavailable Lita Oseguera Unavailable Unavailable Galo Burrell MD Unavailable Unavailable Cristina Wood Unavailable Lesley Moody CHW Unavailable Meredith Bedoya Unavailable Unavailable Cristina Wood Unavailable Diana Desir [facility] Unavailable Rain Galaviz PA-C Unavailable [phone] Summer Lara MD Unavailable [phone] Summer Lara MD Unavailable [phone] Summer Lara MD Unavailable [phone] Tavia Wyatt MD Unavailable [phone] Johnny Murillo MD Unavailable +[phone]- Erica Farrell APRN BOOKS SALESPERSON Unavailable + Vikas Teresita Ka Awlter H Unavailable Tavia Wyatt MD Unavailable [phone] Diana Desir [facility] Unavailable [phone] Rich Barrett MD Unavailable [phone] Neil Kent MD Unavailable Roney StoryM Unavailable [phone] Erica Farrell APRN BOOKS SALESPERSON Unavailable + Diana Desir [facility] Unavailable [phone] Jelena David OD Unavailable [phone] Galo Burrell MD Unavailable Unavailable Livan Sharif MD Unavailable + Livan Sharif MD Unavailable + Catherine Cm MD Unavailable + Valery Veronica PA-C Unavailable [phone] Catherine Cm MD Unavailable + Johnny Murillo MD Unavailable +1- Brea Quinn APRN BOOKS SALESPERSON Unavailable +[phone] Brea Quinn APRN BOOKS SALESPERSON Unavailable [phone] Jose Francisco Johnson MD Unavailable + Livan Sharif MD Unavailable + Catherine Cm MD Unavailable + Sydnie Martinez RN Unavailable Unavailable Alfonso Renteria MD Unavailable [phone] Esha Grimm PA-C Primary Care Provider Perez Chengjc Fish PA-C Unavailable Radha Lomeli APRN BOOKS SALESPERSON Unavailable Jelena David OD Unavailable Pao Joseph RN Unavailable Unavailable Esha Grimm PA-C Unavailable [phone] Valery Veronica PA-C Unavailable Rey Tay MD Unavailable Rocky Zepead DO Unavailable Philip Dumont MD Unavailable Meredith Carrera PA-C Unavailable Neil Kent MD Unavailable Juan Pablo Emmanuel MD Unavailable Audrey Waite PA-C Unavailable JeremíasValery damon PA-C Unavailable [phone] Herminia Hatch MD Unavailable Reason for Visit * Reason Onset Date Comments Patient/info Update 08/31/2020 appointment request Encounter Details Date Type Department Care Team (Late st Contact Info) Description 08/31/2020 [facility] [address] [address] Marija Edgar APRN BOOKS SALESPERSON [address] [place] [address] [address] Patient/info Update (appointment [...] do you attend chur or hinduism services? More than 4 times [...] Answer Date Recorded PHQ-2 Score 0 08/12/2020 [facility] [place] of Occupat ional Health - Occupational Stress [...] PM CDT Legal Sex Female 4:13 AM SUPERVISING FILM OR VIDEOTAPE EDITOR Gender Identity Female 03/02/2021 5:45 PM CDT Sexual Orientation Straight 02/28/2020 12 :51 AM CDT COVID-19 Exposure Response Date Recorded In the last month, have you been in contact with someone who was confirmed or suspected to have Coronavirus / COVID-19? No / Unsure 09/03/2020 12:11 PM SUPERVISING FILM OR VIDEOTAPE EDITOR documented as of this encounter Miscellaneous Notes * Telephone Encounter - Maryjane Mccallum RN - 09/01/2020 7:21 AM SUPERVISING FILM OR VIDEOTAPE EDITOR Patient sent message requesting office visit with [...] Office Visit with Marija Edgar APRN CNP [facility] ([facility] ) [address] [facility] [phone] Maryjane Mccallum, Registered Nurse [facility] RVISING FILM OR VIDEOTAPE EDITOR documented in this encounter Plan of Treatment Upcoming Encounters Date Type Department Care Team (Late st Contact Info) Description 10/23/2024 9:30 AM CDT Office Visit [facility] [address], [address] [place] [address] [place] [address] [address] Johnny Penn MD [address] [facility] [place] [address] 11/28/2024 7:45 AM CDT Virtual Visit [facility] [address] 4th [place] [address] Meredith Carrera PA-C 909 [place] [address] documented as of this encounter Visit Diagnoses Not on filedocumented in this encounter Additional Health Concerns Infection Onset Date Last Indicated Resolved Time Rule Out COVID-19 09/24/2020 09/24/2020 09/24/2020 9:24 AM CDT Rule Out COVID-19 11/05/2020 11/05/2020 11/06/2020 1:09 PM CDT Rule Out COVID-19 05/11/2021 05/11/2021 05/13/2021 10:18 AM CDT Rule Out COVID-19 07/13/2021 07/13/2021 07/14/2021 3:04 PM SUPERVISING FILM OR VIDEOTAPE EDITOR Rule Out COVID-19 07/18/2021 07/18/2021 07/20/2021 1:56 PM SUPERVISING FILM OR VIDEOTAPE EDITOR COVID-19 07/18/2021 07/18/2021 08/08/2021 11:3 9 PM SUPERVISING FILM OR VIDEOTAPE EDITOR Rule Out COVID-19 12/18/2021 12/18/2021 12/19/2021 11:34 AM CDT Rule Out COVID-19 02/24/2022 02/24/2022 02/25/2022 1:08 PM CDT Rule Out COVID-19 04/26/2022 04/26/2022 04/26/2022 6:47 AM CDT Rule Out COVID-19 05/17/2022 05/17/2022 05/17/2022 10:20 PM SUPERVISING FILM OR VIDEOTAPE EDITOR Rule Out COVID-19 06/09/2022 06/09/2022 06/09/2022 9:35 AM SUPERVISING FILM OR VIDEOTAPE EDITOR COVID-19 06/09/2022 06/09/2022 06/30/2022 11:4 1 PM SUPERVISING FILM OR VIDEOTAPE EDITOR Rule Out COVID-19 11/10/2022 11/10/2022 11/11/2022 12:17 PM CDT Rule Out COVID-19 03/07/2023 03/07/2023 03/07/2023 1:20 PM CDT Rule Out COVID-19 12/26/2023 12/26/2023 12/26/2023 9:50 AM CDT Rule Out COVID-19 04/09/2024 04/09/2024 04/10/2024 6:48 PM CDT Assessment Noted Time PHQ-9 Depression Total Score: 9 06/25/20 7:04 AM SUPERVISING FILM OR VIDEOTAPE EDITOR documented as of this encounter Care Teams Well Drill Operator Rotary Drill Relationship Specialty Start Date End Date Marija Edgar APRN BOOKS SALESPERSON PCP - General Nurse Practitioner 04/30/20 04/14/23 Esha Grimm PA-C [address] [place] [phone] PCP - General Family Medicine 05/04/23 Lita Oseguera Personal Advocate & Liaison (PAL) 02/28/20 03/27/23 [place] [address] [place] [address] 200 [place] [address] Assigned OBGYN Provider 05/02/2005/09 Kyara De La Fuente, RN Specialty Welfare Administrator Neurology 06/04/20 03/05/21 Marija Edgar APRN BOOKS SALESPERSON Assigned PCP 06/08/20 04/29/23 Mynor Broussard MD 6363 [facility] 500 [place], [place] 785165 Assigned Surgical Provider 06/01/20 11/28/21 Keisha Dotson MD 909 [place], [place] 442045 Assigned Neuroscience Provider 06/04/20 04/01/23 Stacey Briones, [facility] Lead Welfare Administrator Primary Care - CC 08/11/2012/30 Lesley Moody, [facility] Community Health Worker 08/11/2010/01 Mary Mejia [...] 02/09/21 Diana Desir, [facility]3 [place], [place] [phone] Pharmacist Pharmacist 04/17/21 Rain Galaviz PA-C [address] [place] [address] [address] [place], [place] [phone] Physician Physiologist Dermatology 04/28/21 Summer Lara MD [address] [place] [address] Assigned OBGYN Provider 05/10/2105/23 Summer Lara MD [address] [place] [address] Assigned OBGYN Provider 05/31/21 2 Summer Lara MD 606 [facility] [place], [place] 685434 Assigned OBGYN Provider 05/24/2105/30 Tavia Wyatt MD 606 [facility] [place] [address] Dermatology 07/14/21 Johnny Murillo MD [address] [place] [address] Assigned Musculoskeletal Provider 08/30/21 03/17/22 Erica Farrell APRN BOOKS SALESPERSON 6405 [facility] [address] [place] [address] Nurse Practitioner Cardiovascular Disease 09/09/21 Teresita Bean [facility] 1440 [facility] [place], [place] [phone] Pharmacist Pharmacist 09/24/21 09/29/21 Tavia Wyatt MD [address] [place] [address] Assigned Surgical Provider 11/29/21 05/07/22 Diana Desir, [facility] 3033 [place] [address] Assigned MTM Pharmacist 01/02/22 Rich Barrett MD [address] [address] Physician Ophthalmology 01/21/22 Neil Kent MD 500 [place] [address] Dermatology 02/24/22 Roney Story DPM [address] [facility] [address] [place] [address] Assigned Musculoskeletal Provider 03/20/22 08/13/22 Erica Farrell APRN BOOKS SALESPERSON 1700 [place] [address] Assigned Heart and Vascular Provider 04/03/22 04/16/22 [facility] 3033 [place] [address] Assigned MTM Pharmacist 04/07/22 Jelena David OD [address] [facility] [place] [address] Assigned Surgical Provider 05/08/22 10/08/22 Galo Burrell MD Assigned Heart and Vascular Provider 04/17/22 06/11/22 Livan Sharif MD [address] [place] [address] Cardiovascular Disease 05/14/22 Livan Sharif MD [address] [place] 680535 Assigned Heart and Vascular Provider 06/12/22 07/23/22 Catherine Cm MD [address] [facility]00 [place] [address] Cardiovascular Disease 07/21/22 Valery Veronica, PAUcheC 909 [place] [address] Physician Physiologist Dermatology 07/21/22 Catherine Cm MD [address] [place] [address] [address] [place] 559945 Assigned Heart and Vascular Provider 07/24/22 11/05/22 Johnny Murillo MD [address] [place] [address] 236584 Assigned Musculoskeletal Provider 08/14/22 10/08/22 Brea Quinn APRN BOOKS SALESPERSON [address] [place] [address] 999985 Nurse Practitioner Dermatology 09/21/22 Brea Quinn APRN BOOKS SALESPERSON [address] [place] [address] [place] [address] Assigned Surgical Provider 10/09/22 05/01/24 [place] [address] [place] [address] 291457 Assigned Musculoskeletal Provider 10/09/22 05/01/24 Livan Sharif MD [address] [place] [address] [place] 550495 Assigned Heart and Vascular Provider 11/06/22 11/12/22 Catherine Cm MD [address] [place] [address] Assigned Heart and Vascular Provider 11/13/22 05/27/23 Sydnie Martinez RN Personal Advocate & Liaison (PAL) Family Medicine 03/28/23 07/31/23 Alfonso Renteria MD 5775 [facility] 200 [place], [place] 983086 Assigned Neuroscience Provider 04/02/23 Cheng Todd PA-C [address] [place] [address] [phone] Assigned PCP 04/30/23 07/15/23 Radha Lomeli APRN BOOKS SALESPERSON [address] [place], [place] 293055 Assigned Heart and Vascular Provider 05/28/23 Jelena David OD [address] [facility] [place] [address] Ophthalmology 06/15/23 Pao Joseph, VJ Personal Advocate & Liaison (PAL) Nurse 08/01/23 11/07/23 Esha Grimm PA-C [address] [place] [phone] Assigned PCP 07/16/23 Valery Veronica PA-C [address] [place] [address] Physician Physiologist Dermatology 09/19/23 Rey Tay MD 9 [place], [place] 569725 MD Gastroenterology 09/20/23 Rocky Zepeda DO 500 [place] [address] Physician Gastroenterology 09/20/23 Philip Dumont MD 516 [place], [place] 974665 Physician Ophthalmology 09/22/23 Meredith Carrera PA-C 9 [place] [address] Assigned Gastroenterology Provider 11/01/23 Neil Kent MD [address] [place] [address] 939440 Dermatology 11/02/23 [place] [address] [address] [facility] [place] [address] Neurological Surgery 12/26/23 Audrey Waite PA-C 500 [place] [address] Physician Physiologist Dermatology 02/28/24 Valery Veronica PA-C [address] [place] [address] Physician Physiologist Dermatology 04/10/24 Herminia Hatch MD [address] [place] [address] Assigned Rheumatology Provider 07/02/24 documented as of this encounter
--- OUTSIDE RECORDS SUMMARY | 2024-07-22 22:48 | XMS_ITS | Encounter Summary ---
Author Organization [place] Address [address] [place] [address] Care Team Providers Care Physician Office Secretary Name Role Phone Lita Oseguera Unavailable Unavailable Marija Edgar CERTIFIED SURGICAL ASSISTANT TIME BUYER Primary Care Provider + Chanelle Mccann CERTIFIED SURGICAL ASSISTANT CNM Unavailab le Marija Edgar APRN TIME BUYER Unavailable [phone] Mynor Broussard MD Unavailable [phone] Keisha Dotson MD Unavailable [phone] Galo Burrell MD Unavailable Unavailable Diana Desir [facility] Unavailable Rain Galaviz PA-C Unavailable [phone] Summer Lara MD Unavailable [phone] Summer Lara MD Unavailable [phone] Summer Lara MD Unavailable [phone] Tavia Wyatt MD Unavailable Johnny Murillo MD Unavailable Erica Farrell CERTIFIED SURGICAL ASSISTANT TIME BUYER Unavailable Teresita Bean [facility] Unavailable Tavia Wyatt MD Unavailable DesirDiana [facility] Unavailable [phone] Rich Barrett MD Unavailable [phone] Neil Kent MD Unavailable Roney StoryM Unavailable [phone] Erica Farrell APRN TIME BUYER Unavailable + Diana Desir [facility] Unavailable [phone] Jelena David OD Unavailable Galo Burrell MD Unavailable Unavailable Livan Sharif MD Unavailable + Livan Sharif MD Unavailable + Catherine Cm MD Unavailable + Valery VeronicaC Unavailable [phone] Catherine Cm MD Unavailable + Johnny Murillo MD Unavailable [phone] Brea Quinn CERTIFIED SURGICAL ASSISTANT TIME BUYER Unavailable [phone] Brea Quinn CERTIFIED SURGICAL ASSISTANT TIME BUYER Unavailable [phone] Jose Francisco Johnson MD Unavailable Livan Sharif MD Unavailable + Catherine Cm MD Unavailable + Sydnie Martinez RN Unavailable Unavailable Alfonso Renteria MD Unavailable [phone] Esha GrimmC Primary Care Provider Cheng Todd PA-C Unavailable [phone] Radha Lomeli APRN TIME BUYER Unavailable [phone] Jelena David OD Unavailable Jake, Pao RN Unavailable Unavailable Alfa, Esha M PA-C Unavailable [phone] Valery VeronicaC Unavailable [phone] Rey Tay MD Unavailable Duane Rockyanne [place] Unavailable Philip Dumont MD Unavailable Meredith Carrera PAUcheC Unavailable Neil Kent MD Unavailable Juan Pablo Emmanuel MD Unavailable [phone] Audrey Waite PA-C Unavailable Valery Veronica PA-C Unavailable [phone] Herminia Hatch MD Unavailable Encounter Details Date Type Department Care Team (Late st Contact Info) Description 04/17/2021 [facility] [address] [address] Marija Edgar APRN TIME BUYER [facility] [place] [address] Social History Tobacco Use Types [...] week 08/07/2020 How often do you attend [facility] or protestant services? More than 4 times [...] Answer Date Recorded PHQ-2 Score 0 04/02/2021 [facility] of Occupat ionak Health - Occupational Stress Questionnaire Answer Date [...] in a alf (including now)? No 08/11/2020 Prospect Depression Scale Answer Date Recorded Prospect Depression Score 5 01/14/2021 Last EPDS Self Harm Result Not on file 01/14 Education Answer Date Recorded What is the highest level of school you have completed or the highest degree you have received? 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 TELEPHONIC CASE MANAGER Gender Identity Female 03/02/2021 5:45 PM [...] 10/23/2024 9:30 AM CDT Office Visit [facility] - [address], [address] [place] [address] Juan Pablo [place] [address] [place] [address] [address] [place], [place] 729347 Johnny Penn MD [address] 387[address] 11/28/2024 7:45 AM CDT Virtual Visit [facility] [address] 4th [place] [address] Meredith Carrera PA-C [address] [place] [address] documented as of this encounter Visit Diagnoses Not on filedocumented in this encounter Additional Health Concerns Infection Onset Date Last Indicated Resolved Time Rule Out COVID-19 05/11/2021 05/11/2021 05/13/2021 10:18 AM CDT Rule Out COVID-19 07/13/2021 07/13/2021 07/14/2021 3:04 PM TELEPHONIC CASE MANAGER Rule Out COVID-19 07/18/2021 07/18/2021 07/20/2021 1:56 PM TELEPHONIC CASE MANAGER COVID-19 07/18/2021 07/18/2021 08/08/2021 11:3 9 PM TELEPHONIC CASE MANAGER Rule Out COVID-19 12/18/2021 12/18/2021 12/19/2021 11:34 AM CDT Rule Out COVID-19 02/24/2022 02/24/2022 02/25/2022 1:08 PM CDT Rule Out COVID-19 04/26/2022 04/26/2022 04/26/2022 6:47 AM CDT Rule Out COVID-19 05/17/2022 05/17/2022 05/17/2022 10:20 PM TELEPHONIC CASE MANAGER Rule Out COVID-19 06/09/2022 06/09/2022 06/09/2022 9:35 AM TELEPHONIC CASE MANAGER COVID-19 06/09/2022 06/09/2022 06/30/2022 11:4 1 PM TELEPHONIC CASE MANAGER Rule Out COVID-19 11/10/2022 11/10/2022 11/11/2022 12:17 PM CDT Rule Out COVID-19 03/07/2023 03/07/2023 03/07/2023 1:20 PM CDT Rule Out COVID-19 12/26/2023 12/26/2023 12/26/2023 9:50 AM CDT Rule Out COVID-19 04/09/2024 04/09/2024 04/10/2024 6:48 PM CDT Assessment Noted Time PHQ-9 Depression Total Score: 2 04/02/20 10:19 AM CDT documented as of this encounter Care Teams Physician Office Secretary Relationship Specialty Start Date End Date Marija Edgar APRN TIME BUYER PCP - General Nurse Practitioner 04/30/20 04/14/23 Esha Grimm PA-C [address] [place] [phone] PCP - General Family Medicine 05/04/23 Lita Oseguera Personal Advocate & Liaison (PAL) 02/28/20 03/27/23 [place] [address] [facility] 200 [place] [address] Assigned OBGYN Provider 05/02/2005/09 Marija Edgar APRN TIME BUYER Assigned PCP 06/08/20 04/29/23 Mynor Broussard MD 6363 [facility] 500 [place] [address] Assigned Surgical Provider 06/01/20 11/28/21 Keisha Dotson MD 909 [place] [address] Assigned Neuroscience Provider 06/04/20 04/01/23 Galo Burrell MD Assigned Heart and Vascular Provider 10/05/20 04/02/22 Diana Desir, [facility] 3033 [place] [address] Pharmacist Pharmacist 04/17/21 Rain Galaviz PA-C [address] [place] [address] [place] [address] Physician Communications Equipment Supervisor Dermatology 04/28/21 Summer Lara MD [address] [place] [address] 702934 Assigned OBGYN Provider 05/10/2105/23 Summer Lara MD [address] [place] [address] 048344 Assigned OBGYN Provider 05/31/21 2 Summer Lara MD [address] [place] [address] Assigned OBGYN Provider 05/24/2105/30 Tavia Wyatt MD [address] [place] [address] 381234 Dermatology 07/14/21 Johnny Murillo MD [facility] [address] [place], [place] 270[address]74 Assigned Musculoskeletal Provider 08/30/21 03/17/22 Erica Farrell APRN TIME BUYER 6405 [facility] [address] [place] [address] Nurse Practitioner Cardiovascular Disease 09/09/21 Teresita Bean [facility] [address] [place] [address] Pharmacist Pharmacist 09/24/21 09/29/21 Tavia Wyatt MD [address] [place] [address] Assigned Surgical Provider 11/29/21 05/07/22 [facility] 3033 [place] [address] Assigned MTM Pharmacist 01/02/22 Rich Barrett MD [address] [address] Physician Ophthalmology 01/21/22 Neil Kent MD 500 [place] [address] Dermatology 02/24/22 [place] [address] [facility] 300 [place], [place] 103417 Assigned Musculoskeletal Provider 03/20/22 08/13/22 Erica Farrell APRN TIME BUYER 1700 [place] [address] Assigned Heart and Vascular Provider 04/03/22 04/16/22 Diana Desir, [facility] 3033 [place] [address] Assigned MTM Pharmacist 04/07/22 Jelena David OD [address] [facility] [place] [address] Assigned Surgical Provider 05/08/22 10/08/22 Galo Burrell MD Assigned Heart and Vascular Provider 04/17/22 06/11/22 Livan Sharif MD [address] [place] 286145 Cardiovascular Disease 05/14/22 Livan Sharif MD [address] [place] [address]365 Assigned Heart and Vascular Provider 06/12/22 07/23/22 Catherine Cm MD [address] [place] 360195 Cardiovascular Disease 07/21/22 Valery Veronica PA-C 909 [place], [place] 597275 Physician Communications Equipment Supervisor Dermatology 07/21/22 Catherine Cm MD [address] [place] [address] Assigned Heart and Vascular Provider 07/24/22 11/05/22 Johnny Murillo MD [address] [facility] [address] [place] [address] Assigned Musculoskeletal Provider 08/14/22 10/08/22 Brea Quinn APRN TIME BUYER 500 [place], [place] 559075 Nurse Practitioner Dermatology 09/21/22 Brea Qiunn APRN TIME BUYER [address]01 [facility] [place] [address]72 Assigned Surgical Provider 10/09/22 05/01/24 [place] [address] 476567 Assigned Musculoskeletal Provider 10/09/22 05/01/24 Livan Sharif MD [address], [facility] [address] [place] [address] Assigned Heart and Vascular Provider 11/06/22 11/12/22 Catherine Cm MD [address] [facility] [address] [place] [address] Assigned Heart and Vascular Provider 11/13/22 05/27/23 Sydnie Martinez RN Personal Advocate & Liaison (PAL) Family Medicine 03/28/23 07/31/23 Alfonso Renteria MD [address] [facility] 200 [place], [place] 217116 Assigned Neuroscience Provider 04/02/23 Cheng Todd PA-C [address] [place] [address] Assigned PCP 04/30/23 07/15/23 Radha Lomeli APRN TIME BUYER 6405 [facility] [address] [place] [address] Assigned Heart and Vascular Provider 05/28/23 Jelena David OD [address] [facility] [place] [address] MD Ophthalmology 06/15/23 Pao Joseph, VJ Personal Advocate & Liaison (PAL) Nurse 08/01/23 11/07/23 Esha Grimm PA-C [address] [place] [phone] Assigned PCP 07/16/23 Valery Veronica PA-C [address] [place] [address] 676585 Physician Communications Equipment Supervisor Dermatology 09/19/23 Rey Tay MD [address] [place] [address] 367985 Gastroenterology 09/20/23 Rocky Zepeda DO [address] [place] [address] 573505 Physician Gastroenterology 09/20/23 Philip Dumont MD [address] [place] [address] 079105 Physician Ophthalmology 09/22/23 Meredith Carrera PA-C 909 [place] [address] Assigned Gastroenterology Provider 11/01/23 Neil Kent MD [address] [place] [address] Dermatology 11/02/23 [place] [address] 305047 Neurological Surgery 12/26/23 Audrey Waite PA-C 500 [place] [address] Physician Communications Equipment Supervisor Dermatology 02/28/24 Valery Veronica PA-C [address] [place] [address] Physician Communications Equipment Supervisor Dermatology 04/10/24 Herminia Hatch MD 1875 [place] [address] Assigned Rheumatology Provider 07/02/24 documented as of this encounter
--- OUTSIDE RECORDS SUMMARY | 2024-07-22 22:48 | XMS_ITS | Encounter Summary ---
Author Organization [place] Address [address] [place] [address] Care Team Providers Care District Superintendent Name Role Phone Lita Oseguera Unavailable Unavailable Marija Edgar APRN GANDY DANCER Primary Care Provider + Chanelle Mccann APRN CNM Unavailab le Kyara De La Fuente RN Unavailable Marija Edgar APRN GANDY DANCER Unavailable Mynor Broussard MD Unavailable [phone] Keisha Dotson MD Unavailable [phone] Stacey Briones PACKAGE PICK UP Unavailable Lesley Moody CHW Unavailable Mary Mejia Unavailable Unavailable Lita Oseguera Unavailable Unavailable Galo Burrell MD Unavailable Unavailable Cristina Wood Unavailable Lesley Moody CHW Unavailable [phone] Meredith Bedoya Unavailable Unavailable Cristina Wood Unavailable Diana Desir [facility] Unavailable [phone] Rain Galaviz PA-C Unavailable Summer Lara MD Unavailable [phone] Summer Lara MD Unavailable +[phone] Summer Lara MD Unavailable [phone] Tavia Wyatt MD Unavailable [phone] Johnny Murillo MD Unavailable +1- Erica Farrell APRN GANDY DANCER Unavailable + Vikas Teresita Ka Walter H Unavailable Tavia Wyatt MD Unavailable [phone] Diana Desir [facility] Unavailable [phone] Rich Barrett MD Unavailable [phone] Neil Kent MD Unavailable Roney StoryM Unavailable [phone] Erica Farrell APRN GANDY DANCER Unavailable + Diana Desir [facility] Unavailable +[phone] Jelena David OD Unavailable [phone] Galo Burrell MD Unavailable Unavailable Livan Sharif MD Unavailable + Livan Sharif MD Unavailable + Catherine Cm MD Unavailable + Valery Veronica PA-C Unavailable [phone] Catherine Cm MD Unavailable + Johnny Murillo MD Unavailable +[phone]- Brea Quinn APRN GANDY DANCER Unavailable +[phone] Brea Quinn APRN GANDY DANCER Unavailable [phone] Jose Francisco Johnson MD Unavailable + Livan Sharif MD Unavailable + Catherine Cm MD Unavailable + Sydnie Martinez RN Unavailable Unavailable Alfonso Renteria MD Unavailable [phone] Esha Grimm PA-C Primary Care Provider Perez Chengjc Fish PA-C Unavailable Radha Lomeli APRN GANDY DANCER Unavailable Jelena David OD Unavailable Pao Joseph RN Unavailable Unavailable Esha Grimm PA-C Unavailable [phone] Valery Veronica PA-C Unavailable Rey Tay MD Unavailable Rocky Zepeda DO Unavailable Philip Dumont MD Unavailable [phone] Meredith Carrera PA-C Unavailable Neil Kent MD Unavailable Juan Pablo Emmanuel MD Unavailable Audrey Waite PA-C Unavailable JeremíasValery damon PA-C Unavailable [phone] Herminia Hatch MD Unavailable Reason for Visit * Reason Onset Date Comments MyChart Communication 09/02/2020 Encounter Details Date Type Department Care Team (Latest Contact Info) Description 09/02/2020 MyC Medical Advice [address] [address] Marija Edgar APRN GANDY DANCER [address] [place] [phone] MyChart Communication Social [...] How often do you attend chur or jain services? More than 4 times [...] Answer Date Recorded PHQ-2 Score 0 08/12/2020 [facility] - Occupational Stress Questionnaire [...] PM CDT Legal Sex Female 4:13 AM ODD TICKET CLERK Gender Identity Female 03/02/2021 5:45 PM CDT Sexual Orientation Straight 02/28/2020 12 :51 AM CDT COVID-19 Exposure Response Date Recorded In the last month, have you been in contact with someone who was confirmed or suspected to have Coronavirus / COVID-19? No / Unsure 09/05/2020 2:50 PM ODD TICKET CLERK documented as of this encounter Miscellaneous Notes * Telephone Encounter - Ever Cardozo MA - 09/03/2020 10:34 AM CST Responded to patient as below. Ever Cardozo RUSTIC TERRAZZO SETTER ([facility]) TICKET CLERK documented in this encounter Plan of Treatment Upcoming Encounters Date Type Department Care Team (Late st Contact Info) Description 10/23/2024 9:30 AM CDT Office Visit [facility] Neurology Clinics [address], [address] [place] [phone] [place] [address] [place] [address] [address] Johnny Penn MD 7145 [place], [place] [address] 11/28/2024 7:45 AM CDT Virtual Visit [facility] Gastroenterology Clinic [address] 4th [place] [phone] Meredith Carrera PA-C [address] [place] [address] 244395 documented as of this encounter Visit Diagnoses Not on filedocumented in this encounter Additional Health Concerns Infection Onset Date Last Indicated Resolved Time Rule Out COVID-19 09/24/2020 09/24/2020 09/24/2020 9:24 AM CDT Rule Out COVID-19 11/05/2020 11/05/2020 11/06/2020 1:09 PM CDT Rule Out COVID-19 05/11/2021 05/11/2021 05/13/2021 10:18 AM CDT Rule Out COVID-19 07/13/2021 07/13/2021 07/14/2021 3:04 PM ODD TICKET CLERK Rule Out COVID-19 07/18/2021 07/18/2021 07/20/2021 1:56 PM ODD TICKET CLERK COVID-19 07/18/2021 07/18/2021 08/08/2021 11:3 9 PM ODD TICKET CLERK Rule Out COVID-19 12/18/2021 12/18/2021 12/19/2021 11:34 AM CDT Rule Out COVID-19 02/24/2022 02/24/2022 02/25/2022 1:08 PM CDT Rule Out COVID-19 04/26/2022 04/26/2022 04/26/2022 6:47 AM CDT Rule Out COVID-19 05/17/2022 05/17/2022 05/17/2022 10:20 PM ODD TICKET CLERK Rule Out COVID-19 06/09/2022 06/09/2022 06/09/2022 9:35 AM ODD TICKET CLERK COVID-19 06/09/2022 06/09/2022 06/30/2022 11:4 1 PM ODD TICKET CLERK Rule Out COVID-19 11/10/2022 11/10/2022 11/11/2022 12:17 PM CDT Rule Out COVID-19 03/07/2023 03/07/2023 03/07/2023 1:20 PM CDT Rule Out COVID-19 12/26/2023 12/26/2023 12/26/2023 9:50 AM CDT Rule Out COVID-19 04/09/2024 04/09/2024 04/10/2024 6:48 PM CDT Assessment Noted Time PHQ-9 Depression Total Score: 9 06/25/20 20 7:04 AM ODD TICKET CLERK documented as of this encounter Care Teams District Superintendent Relationship Specialty Start Date End Date Marija Edgar APRN CNP PCP - General Nurse Practitioner 04/30/20 04/14/23 Esha Grimm PA-C [address] [place] [phone] PCP - General Family Medicine 05/04/23 Lita Oseguera Personal Advocate & Liaison (PAL) 02/28/20 03/27/23 Chanelle Mccann APRN CNM [address] [place] [address] 200 [place] [address] Assigned OBGYN Provider 05/02/2005/09 Kyara De La Fuente, RN Specialty Diesel Pile Hammer Operator Neurology 06/04/20 03/05/21 Marija Edgar APRN GANDY DANCER Assigned PCP 06/08/20 04/29/23 Mynor Broussard MD 6363 [facility] 500 [place], [place] 9[address] Assigned Surgical Provider 06/01/20 11/28/21 Keisha Dotson MD 909 [place] [address] Assigned Neuroscience Provider 06/04/20 04/01/23 Stacey Briones, PACKAGE PICK UP Lead Diesel Pile Hammer Operator Primary Care - CC 08/11/2012/30 Lesley Moody, W Community Health Worker 08/11/2010/01 Mary Mejia Financial Resource Worker 09/02/20 10/06/20 Lita Oseguera Personal Advocate & Liaison (PAL) Family Medicine 09/10/20 09/21/20 Galo Burrell MD Assigned Heart and Vascular Provider 10/05/20 04/02/22 Cristina Wood Financial Resource Worker 10/07/20 10/14/20 Lesley Moody, [facility] Community Health Worker 10/23/2012/30 Meredith Bedoya Financial Resource Worker 10/23/20 11/23/20 Cristina Wood Financial Resource Worker 02/09/21 02/09/21 Diana Desir, [facility] [address] [place], [place] 5[address] Pharmacist Pharmacist 04/17/21 Rain Galaviz PA-C [address] [place] [address] [address] [place], [place] [phone] Physician Whiskey Filterer Dermatology 04/28/21 Summer Lara MD [address] [place] [address] 093224 Assigned OBGYN Provider 05/10/2105/23 Summer Lara MD [address] [place] [address] 690084 Assigned OBGYN Provider 05/31/21 2 Summer Lara MD [address] [place] [address] 624444 Assigned OBGYN Provider 05/24/2105/30 Tavia Wyatt MD [address] [place] [address] 826444 Dermatology 07/14/21 Johnny Murillo MD [address] [place] [address] Assigned Musculoskeletal Provider 08/30/21 03/17/22 Erica Farrell APRN GANDY DANCER 6405 [facility] [address] [place] [address] Nurse Practitioner Cardiovascular Disease 09/09/21 Teresita Bean [facility] [address] [place] [phone] Pharmacist Pharmacist 09/24/21 09/29/21 Tavia Wyatt MD [address] [place], [place] 312840 Assigned Surgical Provider 11/29/21 05/07/22 [facility] 3033 [place] [address] Assigned MTM Pharmacist 01/02/22 Rich Barrett MD 516 [facility] 9A [place], [place] 6124[address] Physician Ophthalmology 01/21/22 Neil Kent MD 500 [place], [place] 167955 Dermatology 02/24/22 Roney Story DPM [address] [facility] [address] [place] [address] Assigned Musculoskeletal Provider 03/20/22 08/13/22 Erica Farrell APRN GANDY DANCER 1700 [place] [address] Assigned Heart and Vascular Provider 04/03/22 04/16/22 Diana Desir, [facility] 3033 [place] [address] Assigned MTM Pharmacist 04/07/22 Jelena David OD [address] [place] [address] Assigned Surgical Provider 05/08/22 10/08/22 Gaol Burrell MD Assigned Heart and Vascular Provider 04/17/22 06/11/22 Livan Sharif MD [address] [place] [address] Cardiovascular Disease 05/14/22 Livan Sharif MD [address] [place] [address] Assigned Heart and Vascular Provider 06/12/22 07/23/22 Catherine Cm MD [address] [place] [address] Cardiovascular Disease 07/21/22 Valery Veronica PA-C 909 [place] [address] Physician Whiskey Filterer Dermatology 07/21/22 Catherine Cm MD [address] [place] [address] Assigned Heart and Vascular Provider 07/24/22 11/05/22 Johnny Murillo MD [address] [place] [address] Assigned Musculoskeletal Provider 08/14/22 10/08/22 Brea Quinn APRN GANDY DANCER 500 [place] [address] Nurse Practitioner Dermatology 09/21/22 Brea Quinn APRN GANDY DANCER [address] [facility] [place] [address] Assigned Surgical Provider 10/09/22 05/01/24 [place] [address] [place] [address] 649977 Assigned Musculoskeletal Provider 10/09/22 05/01/24 Livan Sharif MD 6405 [facility] S, [facility] [address] [place] [address] Assigned Heart and Vascular Provider 11/06/22 11/12/22 Catherine Cm MD 6405 [facility] [address] [facility] [address] [place] 9[address]255 Assigned Heart and Vascular Provider 11/13/22 05/27/23 Sydnie Martinez RN Personal Advocate & Liaison (PAL) Family Medicine 03/28/23 07/31/23 Alfonso Renteria MD [address] 200 [place] [address] Assigned Neuroscience Provider 04/02/23 Cheng Todd PA-C [address] [place] [address] Assigned PCP 04/30/23 07/15/23 aRdha Lomeli APRN GANDY DANCER 6405 [facility] [address] [place] [address] Assigned Heart and Vascular Provider 05/28/23 Jelena David OD [address] [facility] [place] [address] Ophthalmology 06/15/23 Pao Joseph, VJ Personal Advocate & Liaison (PAL) Nurse 08/01/23 11/07/23 Esha Grimm PA-C [address] [place] [address]25[address] Assigned PCP 07/16/23 Valery Veronica PA-C [address] [place] [address] 174035 Physician Whiskey Filterer Dermatology 09/19/23 Rey Tay MD [address] [place] [address] 644215 Gastroenterology 09/20/23 Rocky Zepeda DO [address] [place] [address] 969855 Physician Gastroenterology 09/20/23 Philip Dumont MD 516 [place] [address] Physician Ophthalmology 09/22/23 Meredith Carrera PA-C [address] [place] [address] Assigned Gastroenterology Provider 11/01/23 Neil Kent MD [address] [address] Dermatology 11/02/23 [place] [address] [place] [address] [address] Neurological Surgery 12/26/23 Audrey Waite PA-C [address] [place] [address] Physician Whiskey Filterer Dermatology 02/28/24 Valery Veronica PA-C 268749 [address], [place] [address] Physician Whiskey Filterer Dermatology 04/10/24 Herminia Hatch MD [facility]5 [place], [place] [address] Assigned Rheumatology Provider 07/02/24 documented as of this encounter
--- OUTSIDE RECORDS SUMMARY | 2024-07-22 22:48 | XMS_ITS | Encounter Summary ---
Author Organization [place] Address [address] [place] [address] Care Team Providers Care Truck Dispatcher Name Role Phone Lita Oseguera Unavailable Unavailable Marija Edgar APRN TELEPHONE ADVICE NURSE Primary Care Provider + Chanelle Mccann APRN CNM Unavailab le Kyara De La Fuente RN Unavailable [phone] Marija Edgar APRN TELEPHONE ADVICE NURSE Unavailable Mynor Broussard MD Unavailable [phone] Keisha Dotson MD Unavailable [phone] Galo Burrell MD Unavailable Unavailable Cristina Wood Unavailable Diana Desir [facility] Unavailable Rain Galaviz PA-C Unavailable Summer Lara MD Unavailable [phone] Summer Lara MD Unavailable [phone] Summer Lara MD Unavailable [phone] Tavia Wyatt MD Unavailable [phone] Johnny Murillo MD Unavailable Erica Farrell APRN TELEPHONE ADVICE NURSE Unavailable Vikas Teresita Watson [facility] Unavailable Tavia Wyatt MD Unavailable Diana Desir [facility] Unavailable [phone] Rich Barrett MD Unavailable Neil Kent MD Unavailable Roney Story DPM Unavailable [phone] Erica Farrell APRN TELEPHONE ADVICE NURSE Unavailable Diana Desir [facility] Unavailable [phone] Jelena David Unavailable Galo Burrell MD Unavailable Unavailable Livan Sharif MD Unavailable Livan Sharif MD Unavailable + Catherine Cm MD Unavailable + Valery Veronica-C Unavailable [phone] Catherine Cm MD Unavailable + Johnny Murillo MD Unavailable [phone] Brea Quinn PICKING MACHINE OPERATOR HELPER TELEPHONE ADVICE NURSE Unavailable [phone] Brea Quinn PICKING MACHINE OPERATOR HELPER TELEPHONE ADVICE NURSE Unavailable [phone] Jose Francisco Johnson MD Unavailable Livan Sharif MD Unavailable + Catherine Cm MD Unavailable + Sydnie Martinez RN Unavailable Unavailable Alfonso Renteria MD Unavailable [phone] Esha Grimm PA-C Primary Care Provider Cheng Todd PA-C Unavailable Radha Lomeli PICKING MACHINE OPERATOR HELPER TELEPHONE ADVICE NURSE Unavailable [phone] Jelena David OD Unavailable [phone] Pao Joseph RN Unavailable Unavailable Ehsa Grimm PA-C Unavailable [phone] Valery Veronica PA-C Unavailable [phone] Rey Tay MD Unavailable Rocky Zepeda DO Unavailable Philip Dumont MD Unavailable [phone] Meredith Carrera PA-C Unavailable [phone] Neil Kent MD Unavailable Juan Pablo Emmanuel MD Unavailable [phone] Audrey Waite PA-C Unavailable [phone] Valery Veronica PA-C Unavailable Herminia Hatch MD Unavailable Encounter Details Date Type Department Care Team (Late st Contact Info) Description 01/02/2021 MyC Medical Advice [address] [address] Kierra Eller Social History Tobacco [...] do you attend [facility] or evangelical services? More than 4 times [...] Answer Date Recorded PHQ-2 Score 3 09/29/2020 [facility] [...] PM CDT Legal Sex Female 4:13 AM MUCK MINER BLASTING Gender Identity Female 03/02/2021 5:45 PM CDT [...] Visit [facility] Neurology [address], [address] [place] [address] [place] [address] [place] [id number] Johnny Penn MD [address] [place] [address] 11/28/2024 7:45 AM CDT Virtual Visit [facility] Gastroenterology Clinic [address] 4th [place] [phone] Meredith Carrera PA-C [address] [place] [address] 837895 documented as of this encounter Visit Diagnoses Not on filedocumented in this encounter Additional Health Concerns Infection Onset Date Last Indicated Resolved Time Rule Out COVID-19 05/11/2021 05/11/2021 05/13/2021 10:18 AM CDT Rule Out COVID-19 07/13/2021 07/13/2021 07/14/2021 3:04 PM MUCK MINER BLASTING Rule Out COVID-19 07/18/2021 07/18/2021 07/20/2021 1:56 PM MUCK MINER BLASTING COVID-19 07/18/2021 07/18/2021 08/08/2021 11:3 9 PM MUCK MINER BLASTING Rule Out COVID-19 12/18/2021 12/18/2021 12/19/2021 11:34 AM CDT Rule Out COVID-19 02/24/2022 02/24/2022 02/25/2022 1:08 PM CDT Rule Out COVID-19 04/26/2022 04/26/2022 04/26/2022 6:47 AM CDT Rule Out COVID-19 05/17/2022 05/17/2022 05/17/2022 10:20 PM MUCK MINER BLASTING Rule Out COVID-19 06/09/2022 06/09/2022 06/09/2022 9:35 AM MUCK MINER BLASTING COVID-19 06/09/2022 06/09/2022 06/30/2022 11:4 1 PM MUCK MINER BLASTING Rule Out COVID-19 11/10/2022 11/10/2022 11/11/2022 12:17 PM CDT Rule Out COVID-19 03/07/2023 03/07/2023 03/07/2023 1:20 PM CDT Rule Out COVID-19 12/26/2023 12/26/2023 12/26/2023 9:50 AM CDT Rule Out COVID-19 04/09/2024 04/09/2024 04/10/2024 6:48 PM CDT Assessment Noted Time PHQ-9 Depression Total Score: 6 09/30/19 3:25 PM CDT documented as of this encounter Care Teams Truck Dispatcher Relationship Specialty Start Date End Date Marija Edgar APRN TELEPHONE ADVICE NURSE PCP - General Nurse Practitioner 04/30/20 04/14/23 Esha Grimm PA-C [address] [place] [phone] PCP - General Family Medicine 05/04/23 Lita Oseguera Personal Advocate & Liaison (PAL) 02/28/20 03/27/23 Chanelle Mccann APRN CNAdam [address] [facility] 200 [place] [address] Assigned OBGYN Provider 05/02/2005/09 Kyara De La Fuente, VJ Specialty Senior Biostatistician/Group Leader Neurology 06/04/20 03/05/21 Marija Edgar APRN TELEPHONE ADVICE NURSE Assigned PCP 06/08/20 04/29/23 Mynor Broussard MD 6363 [facility] 500 [place] [address] Assigned Surgical Provider 06/01/20 11/28/21 Keisha Dotson MD 909 [place] [address] Assigned Neuroscience Provider 06/04/20 04/01/23 Galo Burrell MD Assigned Heart and Vascular Provider 10/05/20 04/02/22 Cristina Wood Financial Resource Worker 02/09/21 02/09/21 Diana Desir, [facility] 3033 [place] [address] Pharmacist Pharmacist 04/17/21 Rain Galaviz PA-C [address] [place] [address] [address] [place], [place] [phone] Physician Medical Reception Specialist Dermatology 04/28/21 Summer Lara MD [address] [place] [address] 407144 Assigned OBGYN Provider 05/10/2105/23 Summer Lara MD [address] [place] [address] 251814 Assigned OBGYN Provider 05/31/21 2 Summer Lara MD [address] [place] [address] Assigned OBGYN Provider 05/24/2105/30 Tavia Wyatt MD [address] [place] [address] Dermatology 07/14/21 Johnny Murillo MD [address] [place] [address] Assigned Musculoskeletal Provider 08/30/21 03/17/22 Erica Farrell APRN TELEPHONE ADVICE NURSE 6405 [facility] [address] [place] [address] Nurse Practitioner Cardiovascular Disease 09/09/21 Teresita Bean, [facility] [address] [place] [address] Pharmacist Pharmacist 09/24/21 09/29/21 Tavia Wyatt MD [address] [place] [address] Assigned Surgical Provider 11/29/21 05/07/22 [facility] 3033 [place] [address] Assigned MTM Pharmacist 01/02/22 Rich Barrett MD 516 [facility] 9A [place], [place] [phone] Physician Ophthalmology 01/21/22 Neil Kent MD 500 [place], [place] 723185 Dermatology 02/24/22 Roney Story DPM [address] [facility] [address] [place] [address] Assigned Musculoskeletal Provider 03/20/22 08/13/22 Erica Farrell APRN TELEPHONE ADVICE NURSE 1700 [place] [address] Assigned Heart and Vascular Provider 04/03/22 04/16/22 Diana Desir, [facility] 3033 [place] [address] Assigned MTM Pharmacist 04/07/22 Jelena David OD [address] [facility] [place] [address] Assigned Surgical Provider 05/08/22 10/08/22 Galo Burrell MD Assigned Heart and Vascular Provider 04/17/22 06/11/22 Livan Sharif MD [address] [place] [address] Cardiovascular Disease 05/14/22 Livan Sharif MD [address] [place] [address] Assigned Heart and Vascular Provider 06/12/22 07/23/22 Catherine Cm MD [address] [place] [address] Cardiovascular Disease 07/21/22 Valery Veronica PA-C 909 [place], [place] 74[address] Physician Medical Reception Specialist Dermatology 07/21/22 Catherine Cm MD [address] [place] 844545 Assigned Heart and Vascular Provider 07/24/22 11/05/22 Johnny Murillo MD [facility] [place] [address] Assigned Musculoskeletal Provider 08/14/22 10/08/22 Brea Quinn APRN TELEPHONE ADVICE NURSE 500 [place] [address] Nurse Practitioner Dermatology 09/21/22 Brea Quinn APRN TELEPHONE ADVICE NURSE [facility]1 [place] [address] Assigned Surgical Provider 10/09/22 05/01/24 [place] [address] [facility] [place] 300 [place] [address] Assigned Musculoskeletal Provider 10/09/22 05/01/24 Livan Sharif MD [address] , [facility] [address] [place] [address] Assigned Heart and Vascular Provider 11/06/22 11/12/22 Catherine Cm MD 6405 [facility] S [facility] [address] [place] [address] Assigned Heart and Vascular Provider 11/13/22 05/27/23 Sydnie Martinez RN Personal Advocate & Liaison (PAL) Family Medicine 03/28/23 07/31/23 Alfonso Renteria MD 5775 [facility] 200 [place] [address] Assigned Neuroscience Provider 04/02/23 Cheng Todd PA-C [address] [place] [address] Assigned PCP 04/30/23 07/15/23 Radha Lomeli APRN TELEPHONE ADVICE NURSE 6405 [facility] [address] [place] [address] Assigned Heart and Vascular Provider 05/28/23 Jelena David OD [address] [facility] [place] [address] MD Ophthalmology 06/15/23 Pao Joseph, VJ Personal Advocate & Liaison (PAL) Nurse 08/01/23 11/07/23 Esha Grimm PA-C [address] [place] [phone] Assigned PCP 07/16/23 Valery Veronica PA-C [address] [place] [address] 429005 Physician Medical Reception Specialist Dermatology 09/19/23 Rey Tay MD [address] [place] [address] 320055 Gastroenterology 09/20/23 Rocky Zepeda DO [address] [place] [address] 028575 Physician Gastroenterology 09/20/23 Philip Dumont MD [address] [place] [address] 146425 Physician Ophthalmology 09/22/23 Meredith Carrera PA-C 909 [place] [address] Assigned Gastroenterology Provider 11/01/23 Neil Kent MD [address] 169690 Dermatology 11/02/23 [place] [address] [id number] Neurological Surgery 12/26/23 Audrey Waite PA-C [address] [place] [address] Physician Medical Reception Specialist Dermatology 02/28/24 Valery Veronica PA-C [address] [place] [address] Physician Medical Reception Specialist Dermatology 04/10/24 Herminia Hatch MD [facility]5 [place], [place] 69[address] Assigned Rheumatology Provider 07/02/24 documented as of this encounter
--- OUTSIDE RECORDS SUMMARY | 2024-07-22 22:48 | XMS_ITS | Encounter Summary ---
Author Organization [facility] Address [address] [place] [address] Care Team Providers Care Customer Marketing Manager Name Role Phone Lita Oseguera Unavailable Unavailable Marija Edgar APRN UNIFIED COMMUNICATIONS ENGINEER Primary Care Provider + Chanelle Mccann APRN CNM Unavailab le Kyara De La Fuente RN Unavailable [phone] Marija Edgar APRN UNIFIED COMMUNICATIONS ENGINEER Unavailable Mynor Broussard MD Unavailable Keisha Dotson MD Unavailable Galo Burrell MD Unavailable Unavailable Cristina Wood Unavailable Diana Desir [facility] Unavailable Rain Galaviz PA-C Unavailable Summer Lara MD Unavailable [phone] Summer Lara MD Unavailable Summer Lara MD Unavailable [phone] Tavia Wyatt MD Unavailable Johnny Murillo MD Unavailable Erica Farrell APRN UNIFIED COMMUNICATIONS ENGINEER Unavailable Vikas Teresita Watson [facility] Unavailable Tavia Wyatt MD Unavailable Diana Deisr [facility] Unavailable [phone] Rich Barrett MD Unavailable Neil Kent MD Unavailable Roney Story DPM Unavailable [phone] Erica Farrell APRN UNIFIED COMMUNICATIONS ENGINEER Unavailable Diana Desir [facility] Unavailable [phone] Jelena David Unavailable Galo Burrell MD Unavailable Unavailable Livan Sharif MD Unavailable Livan Sharif MD Unavailable + Catherine Cm MD Unavailable + Valery Veronica-C Unavailable [phone] Catherine Cm MD Unavailable + Johnny Murillo MD Unavailable [phone] Brea Quinn MATERIAL LISTER UNIFIED COMMUNICATIONS ENGINEER Unavailable [phone] Brea Quinn MATERIAL LISTER UNIFIED COMMUNICATIONS ENGINEER Unavailable [phone] Jose Francisco Johnson MD Unavailable Livan Sharif MD Unavailable + Catherine Cm MD Unavailable + Sydnie Martinez RN Unavailable Unavailable Alfonso Renteria MD Unavailable [phone] Esha Grimm PA-C Primary Care Provider Cheng Todd PA-C Unavailable [phone] Radha Lomeli MATERIAL LISTER UNIFIED COMMUNICATIONS ENGINEER Unavailable [phone] Jelena David OD Unavailable Pao Joseph RN Unavailable Unavailable Esha Grimm PA-C Unavailable [phone] Valery Veronica PA-C Unavailable [phone] Rey Tay MD Unavailable Rocky Zepeda DO Unavailable Philip Dumont MD Unavailable [phone] Meredith Carrera PA-C Unavailable [phone] Neil Kent MD Unavailable Juan Pablo Emmanuel MD Unavailable [phone] Audrey Watie PA-C Unavailable [phone] Valery Veronica PA-C Unavailable Hreminia Hatch MD Unavailable Encounter Details Date Type Department Care Team (Late st Contact Info) Description 02/06/[address] [address] Medina Diopview Social History Tobacco [...] Answer Date Recorded PHQ-2 Score 3 09/29/2020 [facility] Answer Date [...] in a chcf (including now)? No 08/11/2020 Taylor Depression Scale Answer Date Recorded Taylor Depression Score 5 01/14/2021 Last EPDS Self Harm Result Not on file 01/14 Education Answer Date Recorded What is the highest level of school you have completed or the highest degree you have received? 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 QUALITY ANALYST Gender Identity Female 03/02/2021 5:45 PM [...] 10/23/2024 9:30 AM CDT Office Visit [facility] Neurology [address], [address] [place] [address] [place] [address] [place] [address] Johnny Penn MD [address]389 [place] [address] 11/28/2024 7:45 AM CDT Virtual Visit [facility] G[facility]ology [facility] [address] 4th [place] [address] Meredith Carrera PA-C [address] [place] [address] 573105 documented as of this encounter Visit Diagnoses Not on filedocumented in this encounter Additional Health Concerns Infection Onset Date Last Indicated Resolved Time Rule Out COVID-19 05/11/2021 05/11/2021 05/13/2021 10:18 AM CDT Rule Out COVID-19 07/13/2021 07/13/2021 07/14/2021 3:04 PM QUALITY ANALYST Rule Out COVID-19 07/18/2021 07/18/2021 07/20/2021 1:56 PM QUALITY ANALYST COVID-19 07/18/2021 07/18/2021 08/08/2021 11:3 9 PM QUALITY ANALYST Rule Out COVID-19 12/18/2021 12/18/2021 12/19/2021 11:34 AM CDT Rule Out COVID-19 02/24/2022 02/24/2022 02/25/2022 1:08 PM CDT Rule Out COVID-19 04/26/2022 04/26/2022 04/26/2022 6:47 AM CDT Rule Out COVID-19 05/17/2022 05/17/2022 05/17/2022 10:20 PM QUALITY ANALYST Rule Out COVID-19 06/09/2022 06/09/2022 06/09/2022 9:35 AM QUALITY ANALYST COVID-19 06/09/2022 06/09/2022 06/30/2022 11:4 1 PM QUALITY ANALYST Rule Out COVID-19 11/10/2022 11/10/2022 11/11/2022 12:17 PM CDT Rule Out COVID-19 03/07/2023 03/07/2023 03/07/2023 1:20 PM CDT Rule Out COVID-19 12/26/2023 12/26/2023 12/26/2023 9:50 AM CDT Rule Out COVID-19 04/09/2024 04/09/2024 04/10/2024 6:48 PM CDT Assessment Noted Time PHQ-9 Depression Total Score: 6 09/30/19 3:25 PM CDT documented as of this encounter Care Teams Customer Marketing Manager Relationship Specialty Start Date End Date Marija Edgar APRN UNIFIED COMMUNICATIONS ENGINEER PCP - General Nurse Practitioner 04/30/20 04/14/23 Esha Grimm PA-C [address] [place] [phone] PCP - General Family Medicine 05/04/23 Lita Oseguera Personal Advocate & Liaison (PAL) 02/28/20 03/27/23 Chanelle Mccann APRN CNM [address] 34[facility] 200 [place] [address] Assigned OBGYN Provider 05/02/2005/09 Kyara De La Fuente, RN Specialty Sheet Metal Technician Neurology 06/04/20 03/05/21 Marija Edgar APRN UNIFIED COMMUNICATIONS ENGINEER Assigned PCP 06/08/20 04/29/23 Mynor Broussard MD 6363 [facility] 500 [place] [address] Assigned Surgical Provider 06/01/20 11/28/21 Kesiha Dotson MD 909 [place] [address] Assigned Neuroscience Provider 06/04/20 04/01/23 Galo Burrell MD Assigned Heart and Vascular Provider 10/05/20 04/02/22 Cristina Wodo Financial Resource Worker 02/09/21 02/09/21 [facility] [address] [place] [address] Pharmacist Pharmacist 04/17/21 Rain Galaviz PA-C [address] [place] [address] [place] [address] Physician Silviculturist Dermatology 04/28/21 Summer Lara MD [address] [place] [address] [phone] Assigned OBGYN Provider 05/10/2105/23 Summer Lara MD [address] [place] [address] [phone] Assigned OBGYN Provider 05/31/21 2 Summer Lara MD [address] [place] [address] [phone] Assigned OBGYN Provider 05/24/2105/30 Tavia Wyatt MD [address] [place] [address] [phone] Dermatology 07/14/21 Johnny Murillo MD [address] [facility] [address] [place], [place] 127824 Assigned Musculoskeletal Provider 08/30/21 03/17/22 Erica Farrell APRN UNIFIED COMMUNICATIONS ENGINEER 6405 [facility] [address] [place] [address] Nurse Practitioner Cardiovascular Disease 09/09/21 Teresita Bean [facility] [address] [facility] [address] [place] [phone] Pharmacist Pharmacist 09/24/21 09/29/21 Tavia Wyatt MD [address] [place], [place] 439410 Assigned Surgical Provider 11/29/21 05/07/22 [facility] 3033 [place], [place] 992596 Assigned MTM Pharmacist 01/02/22 Rich Barrett MD [address] [facility] 9A [place], [place] 6460[address] Physician Ophthalmology 01/21/22 Neil Kent MD 500 [place], [place] [phone] Dermatology 02/24/22 Roney Story DPM 312[address] [facility] [address] [place], [place] 746247 Assigned Musculoskeletal Provider 03/20/22 08/13/22 Erica Farrell APRN UNIFIED COMMUNICATIONS ENGINEER 1700 [place] [address] Assigned Heart and Vascular Provider 04/03/22 04/16/22 Diana Desir, [facility] 3033 [place] [address] Assigned MTM Pharmacist 04/07/22 Jelena David OD [address] [place] [place] [address] Assigned Surgical Provider 05/08/22 10/08/22 Galo Burrell MD Assigned Heart and Vascular Provider 04/17/22 06/11/22 Livan Sharif MD [address] [place] [address] Cardiovascular Disease 05/14/22 Livan Sharif MD [address] [place] [address] Assigned Heart and Vascular Provider 06/12/22 07/23/22 Catherine Cm MD [address] [place] 551205 Cardiovascular Disease 07/21/22 Valery Veronica, PAUcheC 909 [place] [address] Physician Silviculturist Dermatology 07/21/22 IsCatherine hobbs MD [address] [facility]00 [place] [address] Assigned Heart and Vascular Provider 07/24/22 11/05/22 Johnny Murillo MD [address] 050114 Assigned Musculoskeletal Provider 08/14/22 10/08/22 Brea Quinn APRN UNIFIED COMMUNICATIONS ENGINEER 500 [place], [place] 586145 Nurse Practitioner Dermatology 09/21/22 Brea Quinn APRN UNIFIED COMMUNICATIONS ENGINEER 6401 [facility] [place] 064172 Assigned Surgical Provider 10/09/22 05/01/24 [place] [address] [place] [address] 286967 Assigned Musculoskeletal Provider 10/09/22 05/01/24 Livan Sharif MD [address] [facility]00 [place] 778655 Assigned Heart and Vascular Provider 11/06/22 11/12/22 Catherine Cm MD [address] [facility]00 [place] 710235 Assigned Heart and Vascular Provider 11/13/22 05/27/23 Sydnie Martinez RN Personal Advocate & Liaison (PAL) Family Medicine 03/28/23 07/31/23 Alfonso Renteria MD [address] [facility] [address] 200 [place] [address] Assigned Neuroscience Provider 04/02/23 Cheng Todd PA-C [address] [place] [address] Assigned PCP 04/30/23 07/15/23 Radha Lomeli APRN UNIFIED COMMUNICATIONS ENGINEER 6405 [facility] [address] [place], [place] 218155 Assigned Heart and Vascular Provider 05/28/23 Jelena David OD [address] [place] [place] [address] Ophthalmology 06/15/23 Pao Joseph, VJ Personal Advocate & Liaison (PAL) Nurse 08/01/23 11/07/23 Esha Grimm PA-C [address] [place] [address] Assigned PCP 07/16/23 Valery Veronica PA-C [address] [place] [address] 529825 Physician Silviculturist Dermatology 09/19/23 Rey Tay MD [address] [place] [address] 516815 Gastroenterology 09/20/23 Rocky Zepeda DO [address] [place] [address] 943015 Physician Gastroenterology 09/20/23 Philip Dumont MD 516 [place] [address] Physician Ophthalmology 09/22/23 Meredith Carrera PA-C 909 [place] [address] Assigned Gastroenterology Provider 11/01/23 Neil Kent MD [address] [address] Dermatology 11/02/23 [place] [address] [place] [address] 083007 Neurological Surgery 12/26/23 Audrey Waite PA-C [address] [place] [address] Physician Silviculturist Dermatology 02/28/24 Valery Veronica PA-C [address] [place] [address] Physician Silviculturist Dermatology 04/10/24 Herminia Hatch MD [facility]5 [place] [address] Assigned Rheumatology Provider 07/02/24 documented as of this encounter
--- OUTSIDE RECORDS SUMMARY | 2024-07-22 22:48 | XMS_ITS | Encounter Summary ---
Author Organization [facility] Address [address] [place] [address] Care Team Providers Care Bean Viner Name Role Phone Lita Oseguera Unavailable Unavailable Marija Edgar APRN ASSOCIATE TECHNICIAN Primary Care Provider + Chanelle Mccann APRN CNM Unavailab le Kyara De La Fuente RN Unavailable [phone] Marija Edgar APRN ASSOCIATE TECHNICIAN Unavailable Mynor Broussard MD Unavailable [phone] Keisha Dotson MD Unavailable Stacey Briones CAKE DECORATOR Unavailable [phone] Lesley Moody CHW Unavailable Mary Mejia Unavailable Unavailable Lita Oseguera Unavailable Unavailable Galo Burrell MD Unavailable Unavailable Cristina Wood Unavailable Lesley Moody CHW Unavailable [phone] Meredith Bedoya Unavailable Unavailable Cristina Wood Unavailable Diaan Desir [facility] Unavailable [phone] Rain Galaviz PA-C Unavailable Summer Lara MD Unavailable [phone] Summer Lara MD Unavailable +[phone] Summer Lara MD Unavailable +[phone] Tavia Wyatt MD Unavailable [phone] Johnny Murillo MD Unavailable +1- Erica Farrell APRN ASSOCIATE TECHNICIAN Unavailable + Vikas Teresita Ka Walter H Unavailable Tavia Wyatt MD Unavailable [phone] Diana Desir [facility] Unavailable [phone] Rich Barrett MD Unavailable [phone] Neil Kent MD Unavailable Roney StoryM Unavailable [phone] Erica Farrell APRN ASSOCIATE TECHNICIAN Unavailable + Diana Desir [facility] Unavailable [phone] Jelena David OD Unavailable [phone] Galo Burrell MD Unavailable Unavailable Livan Sharif MD Unavailable + Livan Sharif MD Unavailable + Catherine Cm MD Unavailable + Valery Veronica PA-C Unavailable [phone] Catherine Cm MD Unavailable + Johnny Murillo MD Unavailable +1- Brea Quinn APRN ASSOCIATE TECHNICIAN Unavailable +[phone] Brea Quinn APRN ASSOCIATE TECHNICIAN Unavailable [phone] Jose Francisco Johnson MD Unavailable + Liavn Sharif MD Unavailable + Catherine Cm MD Unavailable + Sydnie Martinez RN Unavailable Unavailable Alfonso Renteria MD Unavailable [phone] Esha Grimm PA-C Primary Care Provider [phone] Perez Chengjc Fish PA-C Unavailable Radha Lomeli APRN ASSOCIATE TECHNICIAN Unavailable Jelena David OD Unavailable Pao Joseph RN Unavailable Unavailable Esha Grimm PA-C Unavailable [phone] Valery Veronica PA-C Unavailable [phone] Rey Tay MD Unavailable Rocky Zepeda DO Unavailable Philip Dumont MD Unavailable Mereidth Carrera PA-C Unavailable Neil Kent MD Unavailable Juan Pablo Emmanuel MD Unavailable Audrey Waite PA-C Unavailable JeremíasValery damon PA-C Unavailable Herminia Hatch MD Unavailable Reason for Visit * Reason Onset Date Comments MyChart Communication 09/08/2020 Encounter Details Date Type Department Care Team (Latest Contact Info) Description 09/08/2020 MyC Medical Advice [address] [address] Marija Edgar APRN ASSOCIATE TECHNICIAN [address] [place] [address] MyChart Communication Social [...] Answer Date Recorded PHQ-2 Score 0 08/12/2020 [facility] - Occupational Stress [...] CDT Legal Sex Female 4:13 AM SALES PROJECT MANAGER Gender Identity Female 03/02/2021 5:45 PM CDT Sexual Orientation Straight 02/28/2020 12 :51 AM CDT COVID-19 Exposure Response Date Recorded In the last month, have you been in contact with someone who was confirmed or suspected to have Coronavirus / COVID-19? No / Unsure 09/09/2020 10:09 AM SALES PROJECT MANAGER documented as of this encounter Miscellaneous [...] RN, BSN Message handled by CLINIC NURSE.' S PROJECT MANAGER * Telephone Encounter - Ever Cardozo MA - 09/09/2020 7:08 AM CST Triage, could you please see if results are posted yet in regards to patients ultrasound. Ever Cardozo [employer] [facility] S PROJECT MANAGER documented in this encounter Plan of Treatment Upcoming Encounters Date Type Department Care Team (Late st Contact Info) Description 10/23/2024 9:30 AM CDT Office Visit [facility] Neurology Clinics [address], [address] [place] [address] [place] [address] [place] [address] Johnyn Penn MD 0112 [facility] [place] [address] 11/28/2024 7:45 AM CDT Virtual Visit [facility] Gastroenterology Clinic [address] 4th [place] [phone] Meredith Carrera PA-C [address] [place] [address] documented as of this encounter Visit Diagnoses Not on filedocumented in this encounter Additional Health Concerns Infection Onset Date Last Indicated Resolved Time Rule Out COVID-19 09/24/2020 09/24/2020 09/24/2020 9:24 AM CDT Rule Out COVID-19 11/05/2020 11/05/2020 11/06/2020 1:09 PM CDT Rule Out COVID-19 05/11/2021 05/11/2021 05/13/2021 10:18 AM CDT Rule Out COVID-19 07/13/2021 07/13/2021 07/14/2021 3:04 PM SALES PROJECT MANAGER Rule Out COVID-19 07/18/2021 07/18/2021 07/20/2021 1:56 PM SALES PROJECT MANAGER COVID-19 07/18/2021 07/18/2021 08/08/2021 11:3 9 PM SALES PROJECT MANAGER Rule Out COVID-19 12/18/2021 12/18/2021 12/19/2021 11:34 AM CDT Rule Out COVID-19 02/24/2022 02/24/2022 02/25/2022 1:08 PM CDT Rule Out COVID-19 04/26/2022 04/26/2022 04/26/2022 6:47 AM CDT Rule Out COVID-19 05/17/2022 05/17/2022 05/17/2022 10:20 PM SALES PROJECT MANAGER Rule Out COVID-19 06/09/2022 06/09/2022 06/09/2022 9:35 AM SALES PROJECT MANAGER COVID-19 06/09/2022 06/09/2022 06/30/2022 11:4 1 PM SALES PROJECT MANAGER Rule Out COVID-19 11/10/2022 11/10/2022 11/11/2022 12:17 PM CDT Rule Out COVID-19 03/07/2023 03/07/2023 03/07/2023 1:20 PM CDT Rule Out COVID-19 12/26/2023 12/26/2023 12/26/2023 9:50 AM CDT Rule Out COVID-19 04/09/2024 04/09/2024 04/10/2024 6:48 PM CDT Assessment Noted Time PHQ-9 Depression Total Score: 9 06/25/20 20 7:04 AM SALES PROJECT MANAGER documented as of this encounter Care Teams Bean Viner Relationship Specialty Start Date End Date Marija Edgar APRN ASSOCIATE TECHNICIAN PCP - General Nurse Practitioner 04/30/20 04/14/23 Esha Grimm PA-C [address] [place] [phone] PCP - General Family Medicine 05/04/23 Lita Oseguera Personal Advocate & Liaison (PAL) 02/28/20 03/27/23 Chanelle Mccann APRN CNM 34458 34[facility] 200 [place], [place] [address] Assigned OBGYN Provider 05/02/2005/09 Kyara De La Fuente, RN Specialty Environmental Quality Analyst Neurology 06/04/20 03/05/21 Marija Edgar APRN ASSOCIATE TECHNICIAN Assigned PCP 06/08/20 04/29/23 Mynor Broussard MD 6363 [facility] 500 [place] [address] Assigned Surgical Provider 06/01/20 11/28/21 Keisha Dotson MD 9 [place] [address] Assigned Neuroscience Provider 06/04/20 04/01/23 Stacey Briones, [facility] Lead Environmental Quality Analyst Primary Care - CC 08/11/2012/30 Lesley Moody, [facility] Community Health Worker 08/11/2010/01 Mary Mejia Financial Resource Worker 09/02/20 10/06/20 Lita Oseguera Personal Advocate & Liaison (PAL) Family Medicine 09/10/20 09/21/20 Galo Burrell MD Assigned Heart and Vascular Provider 10/05/20 04/02/22 Cristina Wood Financial Resource Worker 10/07/20 10/14/20 Lesley Moody, [facility] Community Health Worker 10/23/2012/30 Meredith Bedoya Financial Resource Worker 10/23/20 11/23/20 Cristina Wood Financial Resource Worker 02/09/21 02/09/21 Diana Desir, [facility] 3033 [place] [address] Pharmacist Pharmacist 04/17/21 Rain Galaviz PA-C [address] [place] [address] [place] [address] Physician Fork Truck Operator Dermatology 04/28/21 Summer Lara MD [address] [place] [address] Assigned OBGYN Provider 05/10/2105/23 Summer Lara MD [address] [place] [address] Assigned OBGYN Provider 05/31/21 2 Summer Lara MD [address] [place] [address] Assigned OBGYN Provider 05/24/2105/30 Tavia Wyatt MD [address] [place] [address] Dermatology 07/14/21 Johnny Murillo MD [address] [place] [address] Assigned Musculoskeletal Provider 08/30/21 03/17/22 Erica Farrell APRN ASSOCIATE TECHNICIAN 6405 [facility] [address] [place] [address] Nurse Practitioner Cardiovascular Disease 09/09/21 Teresita Bean, [facility] [address] [place] [phone] Pharmacist Pharmacist 09/24/21 09/29/21 Tavia Wyatt MD [address] [place], [place] 507910 Assigned Surgical Provider 11/29/21 05/07/22 Diana Desir, [facility] [address] [place] [address] Assigned MTM Pharmacist 01/02/22 Rich Barrett MD 516 [facility] 9[address] [place], [place] 4[address] Physician Ophthalmology 01/21/22 Neil Kent MD 500 [place] [address] Dermatology 02/24/22 Roney Story DPM [address] [employer] [facility] [address] [place], [place] [address] Assigned Musculoskeletal Provider 03/20/22 08/13/22 Erica Farrell APRN ASSOCIATE TECHNICIAN 1700 [place] [address] Assigned Heart and Vascular Provider 04/03/22 04/16/22 Diana Desir, [facility] [address] [place] [address] Assigned MTM Pharmacist 04/07/22 Jelena David OD [address] [facility] [place] [address] Assigned Surgical Provider 05/08/22 10/08/22 Galo Burrell MD Assigned Heart and Vascular Provider 04/17/22 06/11/22 Livan Sharif MD [address] [place] 148495 Cardiovascular Disease 05/14/22 Livan Sharif MD [address] [place] [address] Assigned Heart and Vascular Provider 06/12/22 07/23/22 Catherine Cm MD [address] [address] Cardiovascular Disease 07/21/22 Valery Veronica, PA-C [address] [place] [address] Physician Fork Truck Operator Dermatology 07/21/22 Catherine Cm MD [address] [address] Assigned Heart and Vascular Provider 07/24/22 11/05/22 Johnny Murillo MD [address] [place] [address] Assigned Musculoskeletal Provider 08/14/22 10/08/22 Brea Quinn APRN ASSOCIATE TECHNICIAN [address] [place] [address] [phone] Nurse Practitioner Dermatology 09/21/22 Brea Quinn APRN ASSOCIATE TECHNICIAN [address] [place] [address] Assigned Surgical Provider 10/09/22 05/01/24 [place] [address] [address] Assigned Musculoskeletal Provider 10/09/22 05/01/24 Livan Sharif MD [address], [facility] [address] [place] [address] Assigned Heart and Vascular Provider 11/06/22 11/12/22 Catherine Cm MD [address] [place] [address]47[address] Assigned Heart and Vascular Provider 11/13/22 05/27/23 Sydnie Martinez, RN Personal Advocate & Liaison (PAL) Family Medicine 03/28/23 07/31/23 Alfonso Renteria MD 5775 [facility] 200 [place] [address] Assigned Neuroscience Provider 04/02/23 Cheng Todd PA-C [address] [place] [address] Assigned PCP 04/30/23 07/15/23 Radha Lomeli APRN ASSOCIATE TECHNICIAN [address] [place] [address] Assigned Heart and Vascular Provider 05/28/23 Jelena David OD [facility] [facility] [place] [address] Ophthalmology 06/15/23 Pao Joseph, VJ Personal Advocate & Liaison (PAL) Nurse 08/01/23 11/07/23 Esha Grimm PA-C [address] [place] [address] Assigned PCP 07/16/23 Valery Veronica PA-C 909 [place] [address] Physician Fork Truck Operator Dermatology 09/19/23 Rey Tay MD [address] [place] [address] MD Gastroenterology 09/20/23 Rocky Zepeda DO 500 [place] [address] Physician Gastroenterology 09/20/23 Philip Dumont MD [address] [place] [address] Physician Ophthalmology 09/22/23 Meredith Carrera PA-C [address] [place] [address] Assigned Gastroenterology Provider 11/01/23 Neil Kent MD [address] [address] Dermatology 11/02/23 [place] [address] [address] Neurological Surgery 12/26/23 Audrey Waite PA-C 500 [place] [address] Physician Fork Truck Operator Dermatology 02/28/24 Valery Veronica PA-C [address]409 [address] [place] [address] Physician Fork Truck Operator Dermatology 04/10/24 Herminia Hatch MD [address] [place] [address] Assigned Rheumatology Provider 07/02/24 documented as of this encounter
--- OUTSIDE RECORDS SUMMARY | 2024-07-22 22:48 | XMS_ITS | Encounter Summary ---
Author Organization [facility] Address [address] [place] [address] Care Team Providers Care Bolt Machine Operator Name Role Phone Lita Oseguera Unavailable Unavailable Marija Edgar APRN FLAT LOCK OPERATOR Primary Care Provider + Chanelle Mccann APRN CNM Unavailab le Kyara De La Fuente RN Unavailable [phone] Marija Edgar APRN FLAT LOCK OPERATOR Unavailable [phone] Mynor Broussard MD Unavailable [phone] Keisha Dotson MD Unavailable [phone] Stacey Briones REPAIR ARMATURE WINDER HELPER Unavailable Lesley Moody CHW Unavailable Mary Mejia Unavailable Unavailable Lita Oseguera Unavailable Unavailable Galo Burrell MD Unavailable Unavailable Cristina Wood Unavailable Lesley Moody CHW Unavailable Meredith Bedoya Unavailable Unavailable Cristina Wood Unavailable Diana Desir [facility] Unavailable Rain Galaviz PA-C Unavailable Summer Lara MD Unavailable [phone] Summer Lara MD Unavailable [phone] Summre Lara MD Unavailable +[phone] Tavia Wyatt MD Unavailable [phone] Johnny Murillo MD Unavailable +1- Erica Farrell APRN FLAT LOCK OPERATOR Unavailable + Vikas Teresita Ka Walter H Unavailable Tavia Wyatt MD Unavailable [phone] Diana Desir [facility] Unavailable [phone] Rich Barrett MD Unavailable [phone] Neil Kent MD Unavailable Roney StoryM Unavailable [phone] Erica Farrell APRN FLAT LOCK OPERATOR Unavailable + Diana Desir [facility] Unavailable [phone] Jelena David OD Unavailable [phone] Galo Burrell MD Unavailable Unavailable Livan Sharif MD Unavailable + Livan Sharif MD Unavailable + Catherine Cm MD Unavailable + Valery Veronica PA-C Unavailable [phone] Catherine Cm MD Unavailable + Johnny Murillo MD Unavailable +1- Brea Quinn APRN FLAT LOCK OPERATOR Unavailable +[phone] Brea Quinn APRN FLAT LOCK OPERATOR Unavailable [phone] Jose Francisco Johnson MD Unavailable + Livan Sharif MD Unavailable + Catherine Cm MD Unavailable + Sydnie Martinez RN Unavailable Unavailable Alfonso Renteria MD Unavailable [phone] Esha Grimm PA-C Primary Care Provider Perez Chengjc Fish PA-C Unavailable OlmeliRadha APRN FLAT LOCK OPERATOR Unavailable Jelena David OD Unavailable Pao Joseph RN Unavailable Unavailable Esha Grimm PA-C Unavailable [phone] Valery Veronica PA-C Unavailable Rey Tay MD Unavailable Rocky Zepeda DO Unavailable Philip Dumont MD Unavailable Meredith Carrera PA-C Unavailable [phone] Neil Kent MD Unavailable Juan Pablo Emmanuel MD Unavailable [phone] Audrey Waite PA-C Unavailable [phone] Valery Veronica PA-C Unavailable [phone] Herminia Hatch MD Unavailable Encounter Details Date Type Department Care Team (Late st Contact Info) Description 09/02/2020 MyC Medical Advice [facility] Care Coordination [facility] [address] [place] [address] Mary Mjeia Social History Tobacco Use Types Packs/Day Years [...] do you attend chur or mu-ism services? More than 4 times [...] Answer Date Recorded PHQ-2 Score 0 08/12/2020 [facility] [place] of Occupat ional Health - [...] PM CDT Legal Sex Female 4:13 AM GIRL FRIDAY Gender Identity Female 03/02/2021 5:45 PM CDT Sexual Orientation Straight 02/28/2020 12 :51 AM CDT COVID-19 Exposure Response Date Recorded In the last month, have you been in contact with someone who was confirmed or suspected to have Coronavirus / COVID-19? No / Unsure 09/05/2020 2:50 PM GIRL FRIDAY documented as of this encounter Plan of Treatment Upcoming Encounters Date Type Department Care Team (Late st Contact Info) Description 10/23/2024 9:30 AM CDT Office Visit [facility] Neurology Clinics - [place] [address] [facility], [address] [place] [phone] [place] [address] [place], [place] 5239[address] Johnny Penn MD [address] [place] [id number] 11/28/2024 7:45 AM CDT Virtual Visit [facility] Gastroenterology Clinic [address] 4th [place] [phone] Meredith Carrera PA-C [address] [place] [address] [id number] documented as of this encounter Visit Diagnoses Not on filedocumented in this encounter Additional Health Concerns Infection Onset Date Last Indicated Resolved Time Rule Out COVID-19 09/24/2020 09/24/2020 09/24/2020 9:24 AM CDT Rule Out COVID-19 11/05/2020 11/05/2020 11/06/2020 1:09 PM CDT Rule Out COVID-19 05/11/2021 05/11/2021 05/13/2021 10:18 AM CDT Rule Out COVID-19 07/13/2021 07/13/2021 07/14/2021 3:04 PM GIRL FRIDAY Rule Out COVID-19 07/18/2021 07/18/2021 07/20/2021 1:56 PM GIRL FRIDAY COVID-19 07/18/2021 07/18/2021 08/08/2021 11:3 9 PM GIRL FRIDAY Rule Out COVID-19 12/18/2021 12/18/2021 12/19/2021 11:34 AM CDT Rule Out COVID-19 02/24/2022 02/24/2022 02/25/2022 1:08 PM CDT Rule Out COVID-19 04/26/2022 04/26/2022 04/26/2022 6:47 AM CDT Rule Out COVID-19 05/17/2022 05/17/2022 05/17/2022 10:20 PM GIRL FRIDAY Rule Out COVID-19 06/09/2022 06/09/2022 06/09/2022 9:35 AM GIRL FRIDAY COVID-19 06/09/2022 06/09/2022 06/30/2022 11:4 1 PM GIRL FRIDAY Rule Out COVID-19 11/10/2022 11/10/2022 11/11/2022 12:17 PM CDT Rule Out COVID-19 03/07/2023 03/07/2023 03/07/2023 1:20 PM CDT Rule Out COVID-19 12/26/2023 12/26/2023 12/26/2023 9:50 AM CDT Rule Out COVID-19 04/09/2024 04/09/2024 04/10/2024 6:48 PM CDT Assessment Noted Time PHQ-9 Depression Total Score: 9 06/25/20 20 7:04 AM GIRL FRIDAY documented as of this encounter Care Teams Bolt Machine Operator Relationship Specialty Start Date End Date Marija Edgar APRN FLAT LOCK OPERATOR PCP - General Nurse Practitioner 04/30/20 04/14/23 Esha Grimm PA-C [address] [place] [phone] PCP - General Family Medicine 05/04/23 Lita Oseguera Personal Advocate & Liaison (PAL) 02/28/20 03/27/23 Chanelle Mccann APRN CNM [address] [address] Assigned OBGYN Provider 05/02/2005/09 Kyara De La Fuente, RN Specialty Flight Purser Neurology 06/04/20 03/05/21 Marija Edgar APRN FLAT LOCK OPERATOR Assigned PCP 06/08/20 04/29/23 Mynor Broussard MD [address] [phone] Assigned Surgical Provider 06/01/20 11/28/21 Keisha Dotson MD [address] [place] [address] Assigned Neuroscience Provider 06/04/20 04/01/23 Stacey Briones, [facility] Lead Flight Purser Primary Care - CC 08/11/2012/30 Lesley Moody, [...] 02/09/21 Diana Desir, [facility] [address] [place] [address] Pharmacist Pharmacist 04/17/21 Rain Galaviz PA-C [address] [place] [address] [place] [address] Physician Squaring Shear Operator Dermatology 04/28/21 Summer Lara MD [address] [place] [address] Assigned OBGYN Provider 05/10/2105/23 Summer Lara MD [address] [place] [address] [id number] Assigned OBGYN Provider 05/31/21 2 Summer Lara MD [address] [place] [address] 322874 Assigned OBGYN Provider 05/24/2105/30 Tavia Wyatt MD [address] [place] [address] 369244 Dermatology 07/14/21 Johnny Murillo MD [facility] [facility] [address] [place] [address] Assigned Musculoskeletal Provider 08/30/21 03/17/22 Erica Farrell APRN FLAT LOCK OPERATOR [address] [facility] [address] [place] [address] Nurse Practitioner Cardiovascular Disease 09/09/21 Teresita Bean, [facility] [address] [place] [address] Pharmacist Pharmacist 09/24/21 09/29/21 Tavia Wyatt MD [address] [place] [address] Assigned Surgical Provider 11/29/21 05/07/22 Diana Desir, [facility] [address] [place] [address] Assigned MTM Pharmacist 01/02/22 Rich Barrett MD [address] [address] Physician Ophthalmology 01/21/22 Neil Kent MD [address] [place] [address] Dermatology 02/24/22 Roney Story DPM [address] [facility] [address] [place] [address] Assigned Musculoskeletal Provider 03/20/22 08/13/22 Erica Farrell APRN FLAT LOCK OPERATOR [address] [place] [address] Assigned Heart and Vascular Provider 04/03/22 04/16/22 Diana Desir, [facility] [address] [place] [address] Assigned MTM Pharmacist 04/07/22 Jelena David [address] [place] [address] Assigned Surgical Provider 05/08/22 10/08/22 Galo Burrell MD Assigned Heart and Vascular Provider 04/17/22 06/11/22 Livan Sharif MD [address], [facility] [address] [place] 528265 Cardiovascular Disease 05/14/22 Livan Sharif MD [address], [facility] [address] [place] [phone] Assigned Heart and Vascular Provider 06/12/22 07/23/22 Catherine Cm MD [address] [facility] [place] [phone] Cardiovascular Disease 07/21/22 Valery Veronica, PA-C [address] [place] [address] 359585 Physician Squaring Shear Operator Dermatology 07/21/22 Catherine Cm MD [address] [facility] [place] 047915 Assigned Heart and Vascular Provider 07/24/22 11/05/22 Johnny Murillo MD [facility] [phone] Assigned Musculoskeletal Provider 08/14/22 10/08/22 Brea Quinn APRN FLAT LOCK OPERATOR [address] [place] [address] [phone] Nurse Practitioner Dermatology 09/21/22 Brea Quinn APRN FLAT LOCK OPERATOR [address] [place] [place] [address] Assigned Surgical Provider 10/09/22 05/01/24 [place] [address] [place] [address] Assigned Musculoskeletal Provider 10/09/22 05/01/24 Livan Sharif MD [address] [facility] [address] [place] [address] Assigned Heart and Vascular Provider 11/06/22 11/12/22 Catherine Cm MD [address] [place] [address] [place] [address] Assigned Heart and Vascular Provider 11/13/22 05/27/23 Sydnie Martinez, RN Personal Advocate & Liaison (PAL) Family Medicine 03/28/23 07/31/23 Alfonso Renteria MD [address] [facility] 200 [place], [place] 143646 Assigned Neuroscience Provider 04/02/23 Cheng Todd PA-C [address] [place] [address] [phone] Assigned PCP 04/30/23 07/15/23 Radha Lomeli APRN FLAT LOCK OPERATOR [address] [place] [address] Assigned Heart and Vascular Provider 05/28/23 Jelena David OD [address] [place] [address] MD Ophthalmology 06/15/23 Pao Joseph, RN Personal Advocate & Liaison (PAL) Nurse 08/01/23 11/07/23 Esha Grimm PA-C [address] [place] [phone] Assigned PCP 07/16/23 Valery Veronica PA-C [address] [place] [address] Physician Squaring Shear Operator Dermatology 09/19/23 Rey Tay MD [address] [place] [address] Gastroenterology 09/20/23 Rocky Zepeda DO [address] [place] [address] 238535 Physician Gastroenterology 09/20/23 Philip Dumont MD [address] [place] [address] 736275 Physician Ophthalmology 09/22/23 Meredith aCrrera PA-C [address] [place] [address] 247905 Assigned Gastroenterology Provider 11/01/23 Neil Kent MD [address] [phone] Dermatology 11/02/23 [place] [address] [address] Neurological Surgery 12/26/23 Audrey Waite PA-C [address] [place] [address] Physician Squaring Shear Operator Dermatology 02/28/24 Valery Veronica PA-C [address] [place] [address] Physician Squaring Shear Operator Dermatology 04/10/24 Herminia Hatch MD [address] [place] [address] Assigned Rheumatology Provider 07/02/24 documented as of this encounter
--- OUTSIDE RECORDS SUMMARY | 2024-07-22 22:48 | XMS_ITS | Encounter Summary ---
Author Organization [facility] Address [address] [place] [address] Care Team Providers Care Ball Thread Machine Tender Name Role Phone Lita Oseguera Unavailable Unavailable Marija Edgar APRN FORGING PRESS OPERATOR Primary Care Provider + Chanelle Mccann GREEN WARE CASTER CNM Unavailab le Kyara De La Fuente RN Unavailable [phone] Marija Edgar APRN FORGING PRESS OPERATOR Unavailable Mynor Broussard MD Unavailable [phone] Keisha Dotson MD Unavailable [phone] Stacey Briones CLINICAL ASSISTANT PROFESSOR Unavailable [phone] Mary Mejia Unavailable Unavailable Galo Burrell MD Unavailable Unavailable Cristina Wood Unavailable Lesley Moody CHW Unavailable Meredith Bedoya Unavailable Unavailable Cristina Wood Unavailable Diana Desir [facility] Unavailable Rain Galaviz PA-C Unavailable Summer Lara MD Unavailable [phone] Summer Lara MD Unavailable [phone] Summer Lara MD Unavailable [phone] Tavia Wyatt MD Unavailable [phone] Johnny Murillo MD Unavailable [phone] Erica Farrell APRN FORGING PRESS OPERATOR Unavailable Teresita Bean [facility] Unavailable Tavia Wyatt MD Unavailable [phone] Diana [place] [facility] Unavailable [phone] Rich Barrett MD Unavailable Neil Kent MD Unavailable Roney Story DPM Unavailable [phone] Erica Farrell GREEN WARE CASTER FORGING PRESS OPERATOR Unavailable Diana Desir [facility] Unavailable [phone] Tommy Davidmao Garcia Unavailable Galo Burrell MD Unavailable Unavailable Livan Sharif MD Unavailable + Livan Sharif MD Unavailable + Catherine Cm MD Unavailable + Valery Veronica PA-C Unavailable [phone] Catherine Cm MD Unavailable + Johnny Murillo MD Unavailable +1- Brea Quinn GREEN WARE CASTER FORGING PRESS OPERATOR Unavailable +1- Brea Quinn GREEN WARE CASTER FORGING PRESS OPERATOR Unavailable [phone] Jose Francisco Johnson MD Unavailable Livan Sharif MD Unavailable + Catherine Cm MD Unavailable + Sydnie Martinez RN Unavailable Unavailable Alfonso Renteria MD Unavailable [phone] Esha Grimm PA-C Primary Care Provider Cheng Todd PA-C Unavailable [phone] Radha Lomeli APRN FORGING PRESS OPERATOR Unavailable Jelena David OD Unavailable Pao Joseph RN Unavailable Unavailable Esha Grimm PA-C Unavailable [phone] Valery Veronica PA-C Unavailable Rey Tay MD Unavailable Rocky Zepeda DO Unavailable Philip Dumont MD Unavailable [phone] Meredith Carrera-C Unavailable [phone] Neil Kent MD Unavailable Juan Pablo Emmanuel MD Unavailable [phone] Audrey Waite PA-C Unavailable [phone] Valery Veronica-C Unavailable Herminia Hatch MD Unavailable Encounter Details Date Type Department Care Team (Late st Contact Info) Description 10/02/2020 MyC Medical Advice [facility] Care Coordination [facility] [address] [place] [phone] Stacey Briones, [facility] Social History Tobacco Use Types Packs/Day [...] do you attend chur or advent services? More than 4 times [...] Answer Date Recorded PHQ-2 Score 3 09/29/2020 [facility] of Occupat ional Health - Occupational Stress [...] PM CDT Legal Sex Female 4:13 AM UM NURSE Gender Identity Female 03/02/2021 5:45 PM [...] Visit [facility] Neurology Clinics - [place] [address] [facility], [address] [place] [phone] [place] [address] [place], [place] 159537 Johnny Penn MD [address] [place] [address] 11/28/2024 7:45 AM CDT Virtual Visit [facility] Gastroenterology Clinic [address] 4th [place] [phone] Meredith Carrera PA-C [address] [place] [address] 174995 documented as of this encounter Visit Diagnoses Not on filedocumented in this encounter Additional Health Concerns Infection Onset Date Last Indicated Resolved Time Rule Out COVID-19 11/05/2020 11/05/2020 11/06/2020 1:09 PM CDT Rule Out COVID-19 05/11/2021 05/11/2021 05/13/2021 10:18 AM CDT Rule Out COVID-19 07/13/2021 07/13/2021 07/14/2021 3:04 PM UM NURSE Rule Out COVID-19 07/18/2021 07/18/2021 07/20/2021 1:56 PM UM NURSE COVID-19 07/18/2021 07/18/2021 08/08/2021 11:3 9 PM UM NURSE Rule Out COVID-19 12/18/2021 12/18/2021 12/19/2021 11:34 AM CDT Rule Out COVID-19 02/24/2022 02/24/2022 02/25/2022 1:08 PM CDT Rule Out COVID-19 04/26/2022 04/26/2022 04/26/2022 6:47 AM CDT Rule Out COVID-19 05/17/2022 05/17/2022 05/17/2022 10:20 PM UM NURSE Rule Out COVID-19 06/09/2022 06/09/2022 06/09/2022 9:35 AM UM NURSE COVID-19 06/09/2022 06/09/2022 06/30/2022 11:4 1 PM UM NURSE Rule Out COVID-19 11/10/2022 11/10/2022 11/11/2022 12:17 PM CDT Rule Out COVID-19 03/07/2023 03/07/2023 03/07/2023 1:20 PM CDT Rule Out COVID-19 12/26/2023 12/26/2023 12/26/2023 9:50 AM CDT Rule Out COVID-19 04/09/2024 04/09/2024 04/10/2024 6:48 PM CDT Assessment Noted Time PHQ-9 Depression Total Score: 6 09/30/19 3:25 PM CDT documented as of this encounter Care Teams Ball Thread Machine Tender Relationship Specialty Start Date End Date Marija Edgar APRN FORGING PRESS OPERATOR PCP - General Nurse Practitioner 04/30/20 04/14/23 Esha Grimm PA-C [address] [place] [phone] PCP - General Family Medicine 05/04/23 Lita Oseguera Personal Advocate & Liaison (PAL) 02/28/20 03/27/23 Chanelle Mccann APRN CNM [address] [address] [facility] 200 [place] [address] Assigned OBGYN Provider 05/02/2005/09 Kyara De La Fuente, RN Specialty Care Transitions Nurse Neurology 06/04/20 03/05/21 Marija Edgar APRN FORGING PRESS OPERATOR Assigned PCP 06/08/20 04/29/23 Mynor Broussard MD [address] [place] [address] Assigned Surgical Provider 06/01/20 11/28/21 Keisha Dotson MD 909 [place] [address] Assigned Neuroscience Provider 06/04/20 04/01/23 Stacey Briones, [facility] Lead Care Transitions Nurse Primary Care - CC 08/11/2012/30 Mary Mejia Financial Resource Worker 09/02/20 10/06/20 Galo Burrell MD Assigned Heart and Vascular Provider 10/05/20 04/02/22 Cristina Wood Financial Resource Worker 10/07/20 10/14/20 Lesley Moody, [facility] Community Health Worker 10/23/2012/30 Meredith Bedoya Financial Resource Worker 10/23/20 11/23/20 Cristina Wood Financial Resource Worker 02/09/21 02/09/21 Diana Desir, [facility] [address] [place] [address] Pharmacist Pharmacist 04/17/21 Rain Galaviz PA-C [address] [place] [address] [address] [place] [address] Physician Day Care Aide Dermatology 04/28/21 Summer Lara MD [address] [place] [address] Assigned OBGYN Provider 05/10/2105/23 Summer Lara MD [address] [place] [address] Assigned OBGYN Provider 05/31/21 2 Summer Lara MD [address] [place] [address] Assigned OBGYN Provider 05/24/2105/30 Tavia Wyatt MD [address] [place] [address] Dermatology 07/14/21 Johnny Murillo MD [address] [place] [address] Assigned Musculoskeletal Provider 08/30/21 03/17/22 Erica Farrell APRN FORGING PRESS OPERATOR [address] [facility] [address] [place] [address]235 Nurse Practitioner Cardiovascular Disease 09/09/21 Teresita Bean [facility] [address] [place] [address] Pharmacist Pharmacist 09/24/21 09/29/21 Tavia Wyatt MD [address] [place] [address] Assigned Surgical Provider 11/29/21 05/07/22 [facility] [address] [place] [address] Assigned MTM Pharmacist 01/02/22 Rich Barrett MD [address] [facility] [address] [place], [place] 411675 Physician Ophthalmology 01/21/22 Neil Kent MD 500 [place], [place] 576975 Dermatology 02/24/22 Roney Story DPM [address] [facility] [address] [place] [address] Assigned Musculoskeletal Provider 03/20/22 08/13/22 Erica Farrell APRN FORGING PRESS OPERATOR [address] [place] [address] Assigned Heart and Vascular Provider 04/03/22 04/16/22 [facility] [address] [place] [address] Assigned MTM Pharmacist 04/07/22 Jelena David OD [address] [place] [address] Assigned Surgical Provider 05/08/22 10/08/22 Galo Burrell MD Assigned Heart and Vascular Provider 04/17/22 06/11/22 Livan Sharif MD [address] [facility] [address] [place] 067725 Cardiovascular Disease 05/14/22 Livan Sharif MD [address], [facility] [address] [place] 103755 Assigned Heart and Vascular Provider 06/12/22 07/23/22 Catherine Cm MD [address] [facility] [place] [address] Cardiovascular Disease 07/21/22 Valery Veronica, PA-C [address] [place] [address] Physician Day Care Aide Dermatology 07/21/22 Catherine Cm MD [address] [place] [phone] [place] [address] Assigned Heart and Vascular Provider 07/24/22 11/05/22 Johnny Murillo MD [address] [place] [address] 979904 Assigned Musculoskeletal Provider 08/14/22 10/08/22 Brea Quinn APRN FORGING PRESS OPERATOR [address] [place] [address] Nurse Practitioner Dermatology 09/21/22 Brea Quinn APRN FORGING PRESS OPERATOR [address] [place] [address] [facility] [place] [address] Assigned Surgical Provider 10/09/22 05/01/24 [place] [address] [place] [address] Assigned Musculoskeletal Provider 10/09/22 05/01/24 Livan Sharif MD [address], [facility] [address] [place] [address] Assigned Heart and Vascular Provider 11/06/22 11/12/22 Catherine Cm MD [address] [facility] [address] [place] 038185 Assigned Heart and Vascular Provider 11/13/22 05/27/23 Sydnie Martinez RN Personal Advocate & Liaison (PAL) Family Medicine 03/28/23 07/31/23 Alfonso Renteria MD [address] [facility] 200 [place] [address] Assigned Neuroscience Provider 04/02/23 Cheng Todd PA-C [address] [place] [address] Assigned PCP 04/30/23 07/15/23 Radha Lomeli, GREEN WARE CASTER FORGING PRESS OPERATOR [address] [place] [address] Assigned Heart and Vascular Provider 05/28/23 Jelena David OD [address] [place] [address] Ophthalmology 06/15/23 Pao Joseph, VJ Personal Advocate & Liaison (PAL) Nurse 08/01/23 11/07/23 Esha Grimm PAUcheC [address] [facility] [place] [phone] Assigned PCP 07/16/23 Valery Veronica PA-C [address] [place] [address] Physician Day Care Aide Dermatology 09/19/23 Rey Tay MD [address] [place] [address] MD Gastroenterology 09/20/23 Rocky Zepeda DO [address] [place] [address] [phone] Physician Gastroenterology 09/20/23 Philip [place] MD [address] [place] [address] 356145 Physician Ophthalmology 09/22/23 Meredith Carrera PA-C [address] [place] [address] Assigned Gastroenterology Provider 11/01/23 Neil Kent MD [address] [address] Dermatology 11/02/23 [place] [address] [place] 613737 Neurological Surgery 12/26/23 Audrey Waite PA-C [address] [place] [address] 460665 Physician Day Care Aide Dermatology 02/28/24 Valery Veronica PA-C [address] [place] [address] Physician Day Care Aide Dermatology 04/10/24 Herminia Hatch MD [address] [place] [address] [id number] Assigned Rheumatology Provider 07/02/24 documented as of this encounter
--- OUTSIDE RECORDS SUMMARY | 2024-07-22 22:48 | XMS_ITS | Encounter Summary ---
Author Organization [facility] Address [address] [place] [address] Care Team Providers Care Ship Officer Name Role Phone Lita Oseguera Unavailable Unavailable Marija Edgar CHRISTIAN SCIENCE PRACTITIONER SUPERVISOR OF OFFICIALS Primary Care Provider + Chanelle Mccann CHRISTIAN SCIENCE PRACTITIONER CNM Unavailab le Marija Edgar APRN SUPERVISOR OF OFFICIALS Unavailable Mynor Broussard MD Unavailable [phone] Keisha Dotson MD Unavailable [phone] Galo Burrell MD Unavailable Unavailable Diana Desir [facility] Unavailable Rain Galaviz PA-C Unavailable [phone] Summer Lara MD Unavailable [phone] Summer Lara MD Unavailable [phone] Summer Lara MD Unavailable [phone] Tavia Wyatt MD Unavailable Johnny Murillo MD Unavailable Erica Farrell CHRISTIAN SCIENCE PRACTITIONER SUPERVISOR OF OFFICIALS Unavailable Teresita Bean [facility] Unavailable Tavia Wyatt MD Unavailable DesirDiana [facility] Unavailable [phone] Rich Barrett MD Unavailable [phone] Neil Kent MD Unavailable Roney StoryM Unavailable [phone] Erica Farrell APRN SUPERVISOR OF OFFICIALS Unavailable + Diana Desir [facility] Unavailable [phone] Jelena David OD Unavailable Galo Burrell MD Unavailable Unavailable Livan Sharif MD Unavailable + Livan Sharif MD Unavailable + Catherine Cm MD Unavailable + Valery VeronicaC Unavailable [phone] Catherine Cm MD Unavailable + Johnny Murillo MD Unavailable [phone] Brea Quinn CHRISTIAN SCIENCE PRACTITIONER SUPERVISOR OF OFFICIALS Unavailable [phone] Brea Quinn CHRISTIAN SCIENCE PRACTITIONER SUPERVISOR OF OFFICIALS Unavailable [phone] Jose Francisco Johnson MD Unavailable Livan Sharif MD Unavailable + Catherine Cm MD Unavailable + Sydnie Martinez RN Unavailable Unavailable Alfonso Renteria MD Unavailable [phone] Esha GrimmC Primary Care Provider Cheng Todd PA-C Unavailable [phone] Radha Lomeli APRN SUPERVISOR OF OFFICIALS Unavailable [phone] Jelena David OD Unavailable Jake, Pao RN Unavailable Unavailable Alfa, Esha M PA-C Unavailable [phone] Valery VeronicaC Unavailable Rey Tay MD Unavailable Duane Rockyanne STEVENS Unavailable Philip Dumont MD Unavailable [phone] Meredith Carrera PA-C Unavailable [phone] Neil Kent MD Unavailable Juan Pablo Emmanuel MD Unavailable Audrey Waite PA-C Unavailable Valery Veronica PA-C Unavailable Herminia Hatch MD Unavailable Encounter Details Date Type Department Care Team (Late st Contact Info) Description 04/17/2021 [facility] [address] [address] [place] [id number] [place] [address] Social History Tobacco Use Types Packs/Day Years [...] you attend [employer] or judaism services? More than 4 times [...] Answer Date Recorded PHQ-2 Score 0 04/02/2021 [facility] - [...] in a detention (including now)? No 08/11/2020 Liberty Depression Scale Answer Date Recorded Liberty Depression Score 5 01/14/2021 Last EPDS Self Harm Result Not on file 01/14 Education Answer Date Recorded What is the highest level of school you have completed or the highest degree you have received? 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 PRODUCTION LEADER Gender Identity Female 03/02/2021 5:45 PM CDT [...] Office Visit [facility] Neurology [facility] - [address], [address] [place] [address] [place] [address] [place], [place] 272[address] Johnny Penn MD [address] [place] [id number] 11/28/2024 7:45 AM CDT Virtual Visit [facility] G[facility] [address] 4th [place] [address] Meredith Carrera PA-C [address] [place] [address] [phone] documented as of this encounter Visit Diagnoses Not on filedocumented in this encounter Additional Health Concerns Infection Onset Date Last Indicated Resolved Time Rule Out COVID-19 05/11/2021 05/11/2021 05/13/2021 10:18 AM CDT Rule Out COVID-19 07/13/2021 07/13/2021 07/14/2021 3:04 PM PRODUCTION LEADER Rule Out COVID-19 07/18/2021 07/18/2021 07/20/2021 1:56 PM PRODUCTION LEADER COVID-19 07/18/2021 07/18/2021 08/08/2021 11:3 9 PM PRODUCTION LEADER Rule Out COVID-19 12/18/2021 12/18/2021 12/19/2021 11:34 AM CDT Rule Out COVID-19 02/24/2022 02/24/2022 02/25/2022 1:08 PM CDT Rule Out COVID-19 04/26/2022 04/26/2022 04/26/2022 6:47 AM CDT Rule Out COVID-19 05/17/2022 05/17/2022 05/17/2022 10:20 PM PRODUCTION LEADER Rule Out COVID-19 06/09/2022 06/09/2022 06/09/2022 9:35 AM PRODUCTION LEADER COVID-19 06/09/2022 06/09/2022 06/30/2022 11:4 1 PM PRODUCTION LEADER Rule Out COVID-19 11/10/2022 11/10/2022 11/11/2022 12:17 PM CDT Rule Out COVID-19 03/07/2023 03/07/2023 03/07/2023 1:20 PM CDT Rule Out COVID-19 12/26/2023 12/26/2023 12/26/2023 9:50 AM CDT Rule Out COVID-19 04/09/2024 04/09/2024 04/10/2024 6:48 PM CDT Assessment Noted Time PHQ-9 Depression Total Score: 2 04/02/20 10:19 AM CDT documented as of this encounter Care Teams Ship Officer Relationship Specialty Start Date End Date Marija Edgar APRN SUPERVISOR OF OFFICIALS PCP - General Nurse Practitioner 04/30/20 04/14/23 Esha Grimm PA-C [address] [place] [phone] PCP - General Family Medicine 05/04/23 Lita Oseguera Personal Advocate & Liaison (PAL) 02/28/20 03/27/23 Chanelle Mccann APRN CNM [address] [place] [address] 200 [place], [place] 884727 Assigned OBGYN Provider 05/02/2005/09 Marija Edgar APRN SUPERVISOR OF OFFICIALS Assigned PCP 06/08/20 04/29/23 Mynor Broussard MD 6363 [facility] 500 [place] [address] Assigned Surgical Provider 06/01/20 11/28/21 Keisha Dotson MD 9 [place] [address] Assigned Neuroscience Provider 06/04/20 04/01/23 Galo Burrell MD Assigned Heart and Vascular Provider 10/05/20 04/02/22 Diana Desir, [facility] [address] [place] [address] Pharmacist Pharmacist 04/17/21 Rain Galaviz PA-C [address] [place] [address] [place] [address] Physician Emt Dispatcher Dermatology 04/28/21 Summer Lara MD [address] [place] [address] 817974 Assigned OBGYN Provider 05/10/2105/23 Summer Lara MD [address] [place] [address] [phone] Assigned OBGYN Provider 05/31/21 2 Summer Lara MD [address] [place] [address] 704394 Assigned OBGYN Provider 05/24/2105/30 Tavia Wyatt MD [address] [place] [address] [phone] Dermatology 07/14/21 Johnny Murillo MD [address] [place], [place] [address] [place], [place] 265124 Assigned Musculoskeletal Provider 08/30/21 03/17/22 Erica Farrell APRN SUPERVISOR OF OFFICIALS [address] [facility] [address] [place] [address] Nurse Practitioner Cardiovascular Disease 09/09/21 Teresita Bean, [facility] [address] [facility] [address] [place] [phone] Pharmacist Pharmacist 09/24/21 09/29/21 Tavia Wyatt MD [address] [place] [address] Assigned Surgical Provider 11/29/21 05/07/22 Diana Desir, [facility] [address] [place] [address] Assigned MTM Pharmacist 01/02/22 Rich Barrett MD [address] [phone] Physician Ophthalmology 01/21/22 Neil Kent MD 500 [place], [place] 924035 Dermatology 02/24/22 [place] Story DPM [address] [facility] [address] [place], [place] [phone] Assigned Musculoskeletal Provider 03/20/22 08/13/22 Erica Farrell APRN SUPERVISOR OF OFFICIALS 1700 [place] [address] Assigned Heart and Vascular Provider 04/03/22 04/16/22 Diana Desir, [facility] [address] [place] [address] Assigned MTM Pharmacist 04/07/22 Jelena David OD [address] [facility] [place] [address] Assigned Surgical Provider 05/08/22 10/08/22 Galo Burrell MD Assigned Heart and Vascular Provider 04/17/22 06/11/22 Livan Sharif MD [address] [place] 827675 Cardiovascular Disease 05/14/22 Livan Sharif MD [address] [place] [address] Assigned Heart and Vascular Provider 06/12/22 07/23/22 Catherine Cm MD [address] [place] 368165 Cardiovascular Disease 07/21/22 Valery Veronica PA-C [address] [place], [place] 485705 Physician Emt Dispatcher Dermatology 07/21/22 Catherine Cm MD [address] [place] [address] Assigned Heart and Vascular Provider 07/24/22 11/05/22 Johnny Murillo MD [address] [place] [address] Assigned Musculoskeletal Provider 08/14/22 10/08/22 Brea Quinn APRN SUPERVISOR OF OFFICIALS 500 [place], [place] 980775 Nurse Practitioner Dermatology 09/21/22 Brea Quinn APRN SUPERVISOR OF OFFICIALS 6401 [facility] [place] 435432 Assigned Surgical Provider 10/09/22 05/01/24 [place] [address] [facility] 300 [place], [place] 311907 Assigned Musculoskeletal Provider 10/09/22 05/01/24 Livan Sharif MD [address], [facility] [address] [place] [address] Assigned Heart and Vascular Provider 11/06/22 11/12/22 Catherine Cm MD [address] [facility] [address] [place], [place] 472195 Assigned Heart and Vascular Provider 11/13/22 05/27/23 Sydnie Martinez, VJ Personal Advocate & Liaison (PAL) Family Medicine 03/28/23 07/31/23 Alfonso Renteria MD [address] [facility] 200 [place], [place] 359606 Assigned Neuroscience Provider 04/02/23 Cheng Todd PA-C [address] [place] [address] [phone] Assigned PCP 04/30/23 07/15/23 Radha Lomeli APRN SUPERVISOR OF OFFICIALS [address] [facility] [address] [place], [place] 143655 Assigned Heart and Vascular Provider 05/28/23 Jelena David OD [address] [facility] [place] [address] Ophthalmology 06/15/23 Pao Joseph, VJ Personal Advocate & Liaison (PAL) Nurse 08/01/23 11/07/23 Esha Grimm PA-C [address] [place] [phone] Assigned PCP 07/16/23 Valery Veronica PA-C [address] [place] [address] 775105 Physician Emt Dispatcher Dermatology 09/19/23 Rey Tay MD [address] [place] [address] [phone] Gastroenterology 09/20/23 Rocky Zepeda DO [address] [place] [address] [phone] Physician Gastroenterology 09/20/23 Philip Dumont MD [address] [place] [address] 749035 Physician Ophthalmology 09/22/23 Meredith Carrera PA-C 909 [place] [address] Assigned Gastroenterology Provider 11/01/23 Neil Kent MD [address] [place] [address] Dermatology 11/02/23 [place] [address] [address] Neurological Surgery 12/26/23 Audrey Waite PA-C 500 [place] [address] Physician Emt Dispatcher Dermatology 02/28/24 Valery Veronica PA-C [address] [address] Physician Emt Dispatcher Dermatology 04/10/24 Herminia Hatch MD [facility]5 [place] [address] Assigned Rheumatology Provider 07/02/24 documented as of this encounter
--- OUTSIDE RECORDS SUMMARY | 2024-07-22 22:49 | XMS_ITS | Encounter Summary ---
Author Organization [facility] Address [address] [place] [address] Care Team Providers Care Family Assistant Name Role Phone Lita Oseguera Unavailable Unavailable Marija Edgar APRN CVT TECH Primary Care Provider + Chanelle Mccann CREW LEADER CNM Unavailab le Kyara De La Fuente RN Unavailable [phone] Marija Edgar APRN CVT TECH Unavailable Mynor Broussard MD Unavailable [phone] Keisha Dotson MD Unavailable Mary Mejia Unavailable Unavailable Stacey Briones TEMPERER Unavailable Lesley Moody CHW Unavailable [phone] Mary Mejia Unavailable Unavailable Lita Oseguera Unavailable Unavailable Galo Burrell MD Unavailable Unavailable Cristina Wood Unavailable Lesley Moody CHW Unavailable Meredith Bedoya Unavailable Unavailable Cristina Wood Unavailable Diana Desir [facility] Unavailable [phone] Ruh[place], Rain Lena PA-C Unavailable Summer Lara MD Unavailable [phone] Summer Lara MD Unavailable [phone] Summer Lara MD Unavailable [phone] Tavia Wyatt MD Unavailable [phone] Johnny Murillo MD Unavailable +1- Erica Farrell CREW LEADER CVT TECH Unavailable VikasTeresita H Unavailable Tavia Wyatt MD Unavailable [phone] Diana Desir [facility] Unavailable [phone] Rich Barrett MD Unavailable Neil Kent MD Unavailable Rnoey Story [facility] Unavailable Erica Farrell APRN CVT TECH Unavailable Diana Desir [facility] Unavailable [phone] Jelena David OD Unavailable Galo Burrell MD Unavailable Unavailable Livan Sharif MD Unavailable Livan Sharif MD Unavailable + Catherine Cm MD Unavailable + Valery Veronica PA-C Unavailable [phone] Catherine Cm MD Unavailable + Johnny Murillo MD Unavailable +1- Brea Quinn CREW LEADER CVT TECH Unavailable +[phone] Brea Quinn CREW LEADER CVT TECH Unavailable [phone] Jose Francisco Johnson MD Unavailable Livan Sharif MD Unavailable Catherine Cm MD Unavailable + Sydnie Martinez RN Unavailable Unavailable Alfonso Renteria MD Unavailable [phone] Esha Grimm PA-C Primary Care Provider Cheng Todd PA-C Unavailable ArmaniRadha APRN CVT TECH Unavailable Jelena David OD Unavailable Pao Joseph RN Unavailable Unavailable Esha Grimm PA-C Unavailable [phone] Valery Veronica PA-C Unavailable Rey Tay MD Unavailable Rocky Zepeda DO Unavailable Philip Dumont MD Unavailable Meredith Carrera PA-C Unavailable Neil Kent MD Unavailable Juan Pablo Emmanuel MD Unavailable Audrey Waite PA-C Unavailable JeremíasValery damon PA-C Unavailable Herminia aHtch MD Unavailable Encounter Details Date Type Department Care Team (Late st Contact Info) Description 07/10/2020 MyC Medical Advice [facility] [address] [place] [address] Mynor Broussard MD [address] [place] [...] PM CDT Legal Sex Female 4:13 AM CASE MANAGEMENT SPECIALIST Gender Identity Female 03/02/2021 5:45 PM CDT Sexual Orientation Straight 02/28/2020 12 :51 AM CDT COVID-19 Exposure Response Date Recorded In the last month, have you been in contact with someone who was confirmed or suspected to have Coronavirus / COVID-19? No / Unsure 06/24/2020 3:01 PM CASE MANAGEMENT SPECIALIST documented as of this encounter Plan of Treatment Upcoming Encounters Date Type Department Care Team (Late st Contact Info) Description 10/23/2024 9:30 AM CDT Office Visit [facility] Neurology [address], [address] [place] [phone] [place] [address] [place] [address] 680727 Johnny Penn MD 3967 [place], [place] 65[address] 11/28/2024 7:45 AM CDT Virtual Visit [facility] Gastroenterology Clinic [address] [address] Meredith Carrera PA-C [address] [place] [address] 632465 documented as of this encounter Visit Diagnoses Not on filedocumented in this encounter Additional Health Concerns Infection Onset Date Last Indicated Resolved Time Rule Out COVID-19 07/30/2020 07/30/2020 07/30/2020 7:11 PM CASE MANAGEMENT SPECIALIST Rule Out COVID-19 08/30/2020 08/30/2020 08/30/2020 5:05 PM CASE MANAGEMENT SPECIALIST Rule Out COVID-19 09/24/2020 09/24/2020 09/24/2020 9:24 AM CDT Rule Out COVID-19 11/05/2020 11/05/2020 11/06/2020 1:09 PM CDT Rule Out COVID-19 05/11/2021 05/11/2021 05/13/2021 10:18 AM CDT Rule Out COVID-19 07/13/2021 07/13/2021 07/14/2021 3:04 PM CASE MANAGEMENT SPECIALIST Rule Out COVID-19 07/18/2021 07/18/2021 07/20/2021 1:56 PM CASE MANAGEMENT SPECIALIST COVID-19 07/18/2021 07/18/2021 08/08/2021 11:3 9 PM CASE MANAGEMENT SPECIALIST Rule Out COVID-19 12/18/2021 12/18/2021 12/19/2021 11:34 AM CDT Rule Out COVID-19 02/24/2022 02/24/2022 02/25/2022 1:08 PM CDT Rule Out COVID-19 04/26/2022 04/26/2022 04/26/2022 6:47 AM CDT Rule Out COVID-19 05/17/2022 05/17/2022 05/17/2022 10:20 PM CASE MANAGEMENT SPECIALIST Rule Out COVID-19 06/09/2022 06/09/2022 06/09/2022 9:35 AM CASE MANAGEMENT SPECIALIST COVID-19 06/09/2022 06/09/2022 06/30/2022 11:4 1 PM CASE MANAGEMENT SPECIALIST Rule Out COVID-19 11/10/2022 11/10/2022 11/11/2022 12:17 PM CDT Rule Out COVID-19 03/07/2023 03/07/2023 03/07/2023 1:20 PM CDT Rule Out COVID-19 12/26/2023 12/26/2023 12/26/2023 9:50 AM CDT Rule Out COVID-19 04/09/2024 04/09/2024 04/10/2024 6:48 PM CDT Assessment Noted Time PHQ-9 Depression Total Score: 9 06/25/20 20 7:04 AM CASE MANAGEMENT SPECIALIST documented as of this encounter Care Teams Family Assistant Relationship Specialty Start Date End Date Marija Edgar APRN CVT TECH PCP - General Nurse Practitioner 04/30/20 04/14/23 Esha Grimm PA-C [address] [place] [phone] PCP - General Family Medicine 05/04/23 Lita Oseguera Personal Advocate & Liaison (PAL) 02/28/20 03/27/23 Chanelle Mccann APRN CNAdam [address] [address] 200 [place] [address] Assigned OBGYN Provider 05/02/2005/09 Kyara De La Fuente, RN Specialty Production Assistant Neurology 06/04/20 03/05/21 Marija Edgar APRN CVT TECH Assigned PCP 06/08/20 04/29/23 Mynor Broussard MD 6363 [facility] 500 [place] [address] Assigned Surgical Provider 06/01/20 11/28/21 Keisha Dotson MD 909 [place], [place] 646[address] Assigned Neuroscience Provider 06/04/20 04/01/23 Mary Mejia Financial Resource Worker 08/07/20 08/21/20 Stacey Briones, TEMPERER Lead Production Assistant Primary Care - CC 08/11/2012/30 Lesley [...] 02/09/21 Diana Desir, [facility] [address] [place] [address] Pharmacist Pharmacist 04/17/21 Rain Galaviz PA-C [address] [place] [address] [address] [place], [place] [phone] Physician Manager Chinese Dermatology 04/28/21 Summer Lara MD [address] [place] [address] 532574 Assigned OBGYN Provider 05/10/2105/23 Summer Lara MD [address] [place] [address] 536734 Assigned OBGYN Provider 05/31/21 2 Summer Lara MD [address] [place] [address] Assigned OBGYN Provider 05/24/2105/30 Tavia Wyatt MD [address] [address] Dermatology 07/14/21 Johnny Murillo MD [address] [place] [address] Assigned Musculoskeletal Provider 08/30/21 03/17/22 Erica Farrell APRN CVT TECH [address] [facility] [address] [place], [place] 94[address] Nurse Practitioner Cardiovascular Disease 09/09/21 [facility] [address] [place], [place] [phone] Pharmacist Pharmacist 09/24/21 09/29/21 Tavia Wyatt MD [address] [place] [address] Assigned Surgical Provider 11/29/21 05/07/22 [facility] [address] [place] [address] Assigned MTM Pharmacist 01/02/22 Rcih Barrett MD 516 [facility] [address] [place] [address] Physician Ophthalmology 01/21/22 Neil Kent MD 500 [place] [address] Dermatology 02/24/22 Roney Story DPM [address] [facility] [address] [place] [address] Assigned Musculoskeletal Provider 03/20/22 08/13/22 Erica Farrell APRN CVT TECH 1700 [place] [address] Assigned Heart and Vascular Provider 04/03/22 04/16/22 Diana Desir, [facility] 3033 [place] [address] Assigned MTM Pharmacist 04/07/22 Jelena David OD [address] [facility] [place] [address] Assigned Surgical Provider 05/08/22 10/08/22 Galo Burrell MD Assigned Heart and Vascular Provider 04/17/22 06/11/22 Livan Sharif MD [address] [place] [address] Cardiovascular Disease 05/14/22 Livan Sharif MD [address] [place] [address] Assigned Heart and Vascular Provider 06/12/22 07/23/22 Catherine Cm MD [address] [place] 934305 Cardiovascular Disease 07/21/22 Valery Veronica, PAUcheC 9 [place], [place] [address]255 Physician Manager Chinese Dermatology 07/21/22 Catherine Cm MD [address] [place] [address] Assigned Heart and Vascular Provider 07/24/22 11/05/22 Johnny Murillo MD [address] [place] [address] Assigned Musculoskeletal Provider 08/14/22 10/08/22 Brea Quinn APRN CVT TECH [address] [place] [address] Nurse Practitioner Dermatology 09/21/22 Brea Quinn APRN CVT TECH [address] [place] [address] Assigned Surgical Provider 10/09/22 05/01/24 [place] [address] [address] Assigned Musculoskeletal Provider 10/09/22 05/01/24 Livan Sharif MD [address] [place] [address] Assigned Heart and Vascular Provider 11/06/22 11/12/22 Catherine Cm MD [address] [place] [address] Assigned Heart and Vascular Provider 11/13/22 05/27/23 Sydnie Martinez RN Personal Advocate & Liaison (PAL) Family Medicine 03/28/23 07/31/23 Alfonso Renteria MD 5775 [facility] [address] [place] [address] Assigned Neuroscience Provider 04/02/23 Cheng Todd PA-C [address] [place] [address] [phone] Assigned PCP 04/30/23 07/15/23 Radha Lomeli APRN CVT TECH [address] [place] [address] Assigned Heart and Vascular Provider 05/28/23 Jelena David OD [address] [facility] [place] [address] Ophthalmology 06/15/23 Pao Joseph, VJ Personal Advocate & Liaison (PAL) Nurse 08/01/23 11/07/23 Esha Grimm PA-C [address] [place] [address] Assigned PCP 07/16/23 Valery Veronica PA-C [address] [place] [address] Physician Manager Chinese Dermatology 09/19/23 Rey Tay MD [address] [place] [address] Gastroenterology 09/20/23 Rocky Zepeda DO 500 [place] [address] Physician Gastroenterology 09/20/23 Philip Dumont MD 6 [place] [address] Physician Ophthalmology 09/22/23 Meredith Carrera PA-C 909 [place] [address] Assigned Gastroenterology Provider 11/01/23 Neil Kent MD [address] [address] MD Dermatology 11/02/23 [place] [address] [address] Neurological Surgery 12/26/23 Audrey Waite PA-C 500 [place] [address] Physician Manager Chinese Dermatology 02/28/24 Valery Veronica PA-C 213404 [address] [address] Physician Manager Chinese Dermatology 04/10/24 Herminia Hatch MD [facility]5 [place], [place] [address]42125 Assigned Rheumatology Provider 07/02/24 documented as of this encounter
--- OUTSIDE RECORDS SUMMARY | 2024-07-22 22:49 | XMS_ITS | Encounter Summary ---
Author Organization [facility] Address [address] [place] [id number] Care Team Providers Care Construction Site Crossing Guard Name Role Phone Lita Oseguera Unavailable Unavailable Marija Edgar APRN PARTS CASTING MACHINE OPERATOR Primary Care Provider + Chanelle Mccann 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 CNM Unavailab le Kyara De La Fuente RN Unavailable [phone] Marija Edgar APRN PARTS CASTING MACHINE OPERATOR Unavailable Mynor Broussard MD Unavailable [phone] Keisha Dotson MD Unavailable Mary Mejia Unavailable Unavailable Stacey Briones MATERIALS MANAGEMENT MANAGER Unavailable Lesley Moody CHW Unavailable [phone] Mary Mejia Unavailable Unavailable Lita Oseguera Unavailable Unavailable Galo Burrell MD Unavailable Unavailable Cristina Wood Unavailable Lesley Moody CHW Unavailable [phone] Meredith Bedoya Unavailable Unavailable Cristina Wood Unavailable Diana Desir [facility] Unavailable [phone] Ruhland, Rain Lena PA-C Unavailable Summer Lara MD Unavailable [phone] Summer Lara MD Unavailable [phone] Summer Lara MD Unavailable [phone] Tavia Wyatt MD Unavailable [phone] Johnny Murillo MD Unavailable +[phone]- Erica Farrell 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 PARTS CASTING MACHINE OPERATOR Unavailable VikasTeresita H Unavailable Tavia Wyatt MD Unavailable [phone] [facility] Unavailable [phone] Rich Barrett MD Unavailable Neil Kent MD Unavailable Roney Story [facility] Unavailable Erica Farrell APRN PARTS CASTING MACHINE OPERATOR Unavailable Diana Desir [facility] Unavailable [phone] Jelena David OD Unavailable Galo Burrell MD Unavailable Unavailable Livan Sharif MD Unavailable Livan Sharif MD Unavailable + Catherine Cm MD Unavailable + Valery Veronica PA-C Unavailable [phone] Catherine Cm MD Unavailable + Johnny Murillo MD Unavailable +1- Brea Quinn 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 PARTS CASTING MACHINE OPERATOR Unavailable [phone] Brea Quinn 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 PARTS CASTING MACHINE OPERATOR Unavailable [phone] Joes Francisco Johnson MD Unavailable Livan Sharif MD Unavailable Catherine Cm MD Unavailable + Sydnie Martinez RN Unavailable Unavailable Alfonso Renteria MD Unavailable [phone] Esha Grimm PA-C Primary Care Provider Cheng Todd PA-C Unavailable LomeliRadha APRN PARTS CASTING MACHINE OPERATOR Unavailable Jelena David OD Unavailable Pao Joseph RN Unavailable Unavailable Esha Grimm PA-C Unavailable [phone] Valery Veronica PA-C Unavailable [phone] Rey Tay MD Unavailable Rocky Zepeda DO Unavailable Philip Dumont MD Unavailable [phone] Meredith Carrera PA-C Unavailable Neil Kent MD Unavailable Juan Pablo Emmanuel MD Unavailable [phone] Audrey Waite PA-C Unavailable JeremíasValery damon PA-C Unavailable [phone] Herminia Hatch MD Unavailable Reason for Visit * Reason Comments Medication Refill Encounter Details Date Type Department Care Team (Late st Contact Info) Description 07/14/[address] [address] Rakesh Cid PA-C [address] [place] [address] Medication Refill Social History Tobacco [...] PM CDT Legal Sex Female 4:13 AM [employer]MAN Gender Identity Female 03/02/2021 5:45 PM CDT Sexual Orientation Straight 02/28/2020 12 :51 AM CDT COVID-19 Exposure Response Date Recorded In the last month, have you been in contact with someone who was confirmed or suspected to have Coronavirus / COVID-19? No / Unsure 06/24/2020 3:01 PM FRE[employer] FLAGMAN documented as of this encounter Miscellaneous Notes * Telephone Encounter - Estephania Black RN - 07/16/2020 11:38 AM [employer]MAN Routing refill request to provider for review/approval because: Labs out of range: PHQ9> 4 patient was seen 3 weeks ago. Estephania Black RN Flex GHT [employer]MAN * Telephone Encounter - Brea Perry RN - 07/16/2020 11:34 AM FRE[employer]MAN Routing to correct clinic. G[employer] documented in this encounter Plan of Treatment Upcoming Encounters Date Type Department Care Team (Late st Contact Info) Description 10/23/2024 9:30 AM CDT Office Visit [facility] [place] [address] [place] [address], [address] [place] [address] [place] [address] [place] [id number] Johnny Penn MD [address] [place] [phone] 11/28/2024 7:45 AM CDT Virtual Visit [facility] [place] [address] [facility] [address] [place] [phone] Meredith Carrera PA-C [address] [place] [address] documented as of this encounter Visit Diagnoses Diagnosis Anxiety Anxiety state, unspecified documented in this encounter Additional Health Concerns Infection Onset Date Last Indicated Resolved Time Rule Out COVID-19 07/30/2020 07/30/2020 07/30/2020 7:11 PM FRE[employer]MAN Rule Out COVID-19 08/30/2020 08/30/2020 08/30/2020 5:05 PM FRE[employer]MAN Rule Out COVID-19 09/24/2020 09/24/2020 09/24/2020 9:24 AM CDT Rule Out COVID-19 11/05/2020 11/05/2020 11/06/2020 1:09 PM CDT Rule Out COVID-19 05/11/2021 05/11/2021 05/13/2021 10:18 AM CDT Rule Out COVID-19 07/13/2021 07/13/2021 07/14/2021 3:04 PM FREIGHT FLAGMAN Rule Out COVID-19 07/18/2021 07/18/2021 07/20/2021 1:56 PM FREIGHT FLAGMAN COVID-19 07/18/2021 07/18/2021 08/08/2021 11:3 9 PM F[employer]MAN Rule Out COVID-19 12/18/2021 12/18/2021 12/19/2021 11:34 AM CDT Rule Out COVID-19 02/24/2022 02/24/2022 02/25/2022 1:08 PM CDT Rule Out COVID-19 04/26/2022 04/26/2022 04/26/2022 6:47 AM CDT Rule Out COVID-19 05/17/2022 05/17/2022 05/17/2022 10:20 PM FREIGHT FLAGMAN Rule Out COVID-19 06/09/2022 06/09/2022 06/09/2022 9:35 AM FRE[employer] FLAGMAN COVID-19 06/09/2022 06/09/2022 06/30/2022 11:4 1 PM FREIGHT FLAGMAN Rule Out COVID-19 11/10/2022 11/10/2022 11/11/2022 12:17 PM CDT Rule Out COVID-19 03/07/2023 03/07/2023 03/07/2023 1:20 PM CDT Rule Out COVID-19 12/26/2023 12/26/2023 12/26/2023 9:50 AM CDT Rule Out COVID-19 04/09/2024 04/09/2024 04/10/2024 6:48 PM CDT Assessment Noted Time PHQ-9 Depression Total Score: 9 06/25/20 7:04 AM FRE[employer] FLAGMAN documented as of this encounter Care Teams Construction Site Crossing Guard Relationship Specialty Start Date End Date Marija Edgar APRN PARTS CASTING MACHINE OPERATOR PCP - General Nurse Practitioner 04/30/20 04/14/23 Esha Grimm PA-C [address] [place] [phone] PCP - General Family Medicine 05/04/23 Lita Oseguera Personal Advocate & Liaison (PAL) 02/28/20 03/27/23 [place] [address] [place] [address] Assigned OBGYN Provider 05/02/2005/09 Kyara De La Fuente, RN Specialty Computer Numerical Control Operator Neurology 06/04/20 03/05/21 Marija Edgar APRN PARTS CASTING MACHINE OPERATOR Assigned PCP 06/08/20 04/29/23 Mynor Broussard MD [address] [facility] [address] [place], [place] 375[address] Assigned Surgical Provider 06/01/20 11/28/21 Keisha Dotson MD [address] [place], [place] 217025 Assigned Neuroscience Provider 06/04/20 04/01/23 Mary Mejia Financial Resource Worker 08/07/20 08/21/20 Stacey Briones, [facility] Lead Computer Numerical Control Operator Primary Care - CC 08/11/2012/30 Lesley Moody, [facility] Community Health Worker 08/11/2010/01 Mary Mejia Financial Resource Worker 09/02/20 10/06/20 Lita Oseguera Personal Advocate & Liaison (PAL) Family Medicine 09/10/20 09/21/20 Galo Burrell MD Assigned Heart and Vascular Provider 10/05/20 04/02/22 Cristina Wood Financial Resource Worker 10/07/20 10/14/20 Lesley Moody, [facility] Community Health Worker 10/23/2012/30 Meredith Bedoya Financial Resource Worker 10/23/20 11/23/20 Cristina Wood Financial Resource Worker 02/09/21 02/09/21 Diana Desir, [facility] [address] [place] [address] Pharmacist Pharmacist 04/17/21 Rain Galaviz PA-C [address] [place] [address] [address] [facility] [address] Physician Inspector [employer] Metal Parts Dermatology 04/28/21 Summer Lara MD [address] [place] [address] Assigned OBGYN Provider 05/10/2105/23 Summer Lara MD [address] [place] [address] Assigned OBGYN Provider 05/31/21 Summer Lara MD [address] [place] [address] Assigned OBGYN Provider 05/24/2105/30 Tavia Wyatt MD [address] [place] [address] Dermatology 07/14/21 Johnny Murillo MD [address] [facility] [address] [place] [address] Assigned Musculoskeletal Provider 08/30/21 03/17/22 Erica Farrell APRN PARTS CASTING MACHINE OPERATOR [address] [facility] [address] [place] [address] Nurse Practitioner Cardiovascular Disease 09/09/[address] [facility] [address] [place] [address] Pharmacist Pharmacist 09/24/21 09/29/21 Tavia Wyatt MD [address] [place] [address] Assigned Surgical Provider 11/29/21 05/07/22 Diana Desir, [facility] [address] [place] [address] Assigned MTM Pharmacist 01/02/22 Rich Barrett MD [address] [phone] Physician Ophthalmology 01/21/22 Neil Kent MD [address] [place] [address] Dermatology 02/24/22 Roney Story DPM [address] [facility] [address] [place] [address] Assigned Musculoskeletal Provider 03/20/22 08/13/22 Erica Farrell APRN PARTS CASTING MACHINE OPERATOR [address] [place] [address] Assigned Heart and Vascular Provider 04/03/22 04/16/22 Diana Desir, [facility] [address] [place] [address] Assigned MTM Pharmacist 04/07/22 Jelena David OD [address] [place] [address] [place] [address] Assigned Surgical Provider 05/08/22 10/08/22 Galo Burrell MD Assigned Heart and Vascular Provider 04/17/22 06/11/22 Livan Sharif MD [address], [facility] [address] [place] [phone] Cardiovascular Disease 05/14/22 Livan Sharif MD [address], [facility] [address] [place] [phone] Assigned Heart and Vascular Provider 06/12/22 07/23/22 Catherine Cm MD [address] [facility] [place] 222165 Cardiovascular Disease 07/21/22 Valery Veronica, PAUcheC [address] [place] [address] 812395 Physician Inspector [employer] Parts Dermatology 07/21/22 Catherine Cm MD [address] [facility] [place] 019035 Assigned Heart and Vascular Provider 07/24/22 11/05/22 Johnny Murillo MD [address] [place] [address] [phone] Assigned Musculoskeletal Provider 08/14/22 10/08/22 Brea Quinn APRN PARTS CASTING MACHINE OPERATOR [address] [place] [address] 035305 Nurse Practitioner Dermatology 09/21/22 Brea Quinn APRN PARTS CASTING MACHINE OPERATOR [address] [place] [address] [place] 960322 [phone] Assigned Surgical Provider 10/09/22 05/01/24 [place] [address] [place] [address] Assigned Musculoskeletal Provider 10/09/22 05/01/24 Livan Sharif MD [address] [facility] [address] [place] [address] Assigned Heart and Vascular Provider 11/06/22 11/12/22 Catherine Cm MD [address] [facility] [address] [place] [address] Assigned Heart and Vascular Provider 11/13/22 05/27/23 Sydnie Martinez RN Personal Advocate & Liaison (PAL) Family Medicine 03/28/23 07/31/23 Alfonso Renteria MD [address] [facility] [address] [place] [address] Assigned Neuroscience Provider 04/02/23 Cheng Todd PA-C [address] [place] [address] [phone] Assigned PCP 04/30/23 07/15/23 Radha Lomeli APRN PARTS CASTING MACHINE OPERATOR [address] [place] [address] Assigned Heart and Vascular Provider 05/28/23 Jelena David OD [address] [facility] [place] [address] MD Ophthalmology 06/15/23 Pao Joseph, RN Personal Advocate & Liaison (PAL) Nurse 08/01/23 11/07/23 Esha Grimm PA-C [address] [place] [phone] Assigned PCP 07/16/23 Valery Veronica PA-C [address] [place] [address] [phone] Physician Inspector [employer] Metal Parts Dermatology 09/19/23 Rey Tay MD [address] [place] [address] 975515 MD Gastroenterology 09/20/23 Rocky Zepeda DO [address] [place] [address] 350955 Physician Gastroenterology 09/20/23 Philip Dumont MD [address] [place] [address] 348185 Physician Ophthalmology 09/22/23 Meredith Carrera PA-C [address] [place] [address] 219335 Assigned Gastroenterology Provider 11/01/23 Neil Kent MD [address] 566640 Dermatology 11/02/23 [place] [address] [place] [address] Neurological Surgery 12/26/23 Audrey Waite PA-C [address] [place] [address] Physician Inspector [employer] Metal Parts Dermatology 02/28/24 Valery Veronica PA-C [address] [place] [address] Physician Inspector Sheet Metal Parts Dermatology 04/10/24 Herminia Hatch MD [address] [place] [address] [phone] Assigned Rheumatology Provider 07/02/24 documented as of this encounter
--- OUTSIDE RECORDS SUMMARY | 2024-07-22 22:49 | XMS_ITS | Encounter Summary ---
Author Organization [facility] Address [address] [place] [address] Care Team Providers Care Sports Equipment Supervisor Name Role Phone Lita Oseguera Unavailable Unavailable Marija Edgar APRN SAMPLE TESTER GRINDER Primary Care Provider + Chanelle Mccann TIME STUDY STATISTICIAN CNM Unavailab le Kyara De La Fuente RN Unavailable [phone] Marija Edgar APRN SAMPLE TESTER GRINDER Unavailable [phone] Mynor Broussard MD Unavailable [phone] Keisha Dotson MD Unavailable [phone] Mary Mejia Unavailable Unavailable Stacey Briones OFFICE ASSISTANT RECEPTIONIST Unavailable Lesley Moody CHW Unavailable Mary Mejia Unavailable Unavailable Lita Oseguera Unavailable Unavailable Galo Burrell MD Unavailable Unavailable Cristina Wood Unavailable Lesley Moody CHW Unavailable Meredith Bedoya Unavailable Unavailable Cristina Wood Unavailable Diana Desir [facility] Unavailable Ruhland, Rain Lena PA-C Unavailable Summer Lara MD Unavailable [phone] Summer Lara MD Unavailable [phone] Summer Lara MD Unavailable [phone] Tavia Wyatt MD Unavailable [phone] Johnny Murillo MD Unavailable +1- Erica Farrell TIME STUDY STATISTICIAN SAMPLE TESTER GRINDER Unavailable VikasTeresita H Unavailable Tavia Wyatt MD Unavailable [phone] Diana Desir [facility] Unavailable [phone] Rich Barrett MD Unavailable Neil Kent MD Unavailable Roney Story [facility] Unavailable Erica Farrell APRN SAMPLE TESTER GRINDER Unavailable Diana Desir [facility] Unavailable [phone] Jelena David OD Unavailable [phone] Galo Burrell MD Unavailable Unavailable Livan Sharif MD Unavailable Livan Sharif MD Unavailable + Catherine Cm MD Unavailable + Valery Veronica PA-C Unavailable [phone] Catherine Cm MD Unavailable + Johnny Murillo MD Unavailable +1- Brea Quinn TIME STUDY STATISTICIAN SAMPLE TESTER GRINDER Unavailable +[phone] Brea Quinn TIME STUDY STATISTICIAN SAMPLE TESTER GRINDER Unavailable [phone] Jose Francisco Johnson MD Unavailable Livan Sharif MD Unavailable Catherine Cm MD Unavailable + Sydnie Martinez RN Unavailable Unavailable Alfonso Renteria MD Unavailable [phone] Esha Grimm PA-C Primary Care Provider Cheng Todd PA-C Unavailable ArmaniRadha APRN SAMPLE TESTER GRINDER Unavailable Jelena David OD Unavailable Pao Joseph RN Unavailable Unavailable Esha Grimm PA-C Unavailable Valery Veronica PA-C Unavailable Rey Tay MD Unavailable Rocky Zepeda DO Unavailable Philip Dumont MD Unavailable Meredith Carrera PA-C Unavailable [phone] Neil Kent MD Unavailable Juan Pablo Emmanuel MD Unavailable [phone] Audrey Waite PA-C Unavailable [phone] JeremíasValery damon PA-C Unavailable Herminia Hatch MD Unavailable Encounter Details Date Type Department Care Team (Late st Contact Info) Description 07/17/2020 MyC Medical Advice M [facility] Epilepsy Care [address], [address] [place] [address] Keisha Dotson MD [address] [place] [address] Social History Tobacco Use Types [...] PM CDT Legal Sex Female 4:13 AM [employer] BLOCKMAKER Gender Identity Female 03/02/2021 5:45 PM CDT Sexual Orientation Straight 02/28/2020 12 :51 AM CDT COVID-19 Exposure Response Date Recorded In the last month, have you been in contact with someone who was confirmed or suspected to have Coronavirus / COVID-19? No / Unsure 06/24/2020 3:01 PM RIBBON BLOCKMAKER documented as of this encounter Miscellaneous Notes * Telephone Encounter - Kyara De La Fuente RN - 07/23/2020 1:41 PM CST Patient contacted the office by [email or web address] to report intolerability of levetiracetam. She stayed [...] her shewouldn't need medication her whole life. ON BLOCKMAKER documented in this encounter Plan of Treatment Upcoming Encounters Date Type Department Care Team (Late st Contact Info) Description 10/23/2024 9:30 AM CDT Office Visit [facility] Neurology [facility] - [address], [address] [place] [address] [place] [address] [place] [address] Johnny Penn MD [address] [place], [place] [address] 11/28/2024 7:45 AM CDT Virtual Visit [facility] Gastroenterology [facility] [address] 4[address] [place] [address] Meredith Carrera PA-C [address] [place] [id number] documented as of this encounter Visit Diagnoses Not on filedocumented in this encounter Additional Health Concerns Infection Onset Date Last Indicated Resolved Time Rule Out COVID-19 07/30/2020 07/30/2020 07/30/2020 7:11 PM RIBBON BLOCKMAKER Rule Out COVID-19 08/30/2020 08/30/2020 08/30/2020 5:05 PM RIBBON BLOCKMAKER Rule Out COVID-19 09/24/2020 09/24/2020 09/24/2020 9:24 AM CDT Rule Out COVID-19 11/05/2020 11/05/2020 11/06/2020 1:09 PM CDT Rule Out COVID-19 05/11/2021 05/11/2021 05/13/2021 10:18 AM CDT Rule Out COVID-19 07/13/2021 07/13/2021 07/14/2021 3:04 PM RIBBON BLOCKMAKER Rule Out COVID-19 07/18/2021 07/18/2021 07/20/2021 1:56 PM RIBBON BLOCKMAKER COVID-19 07/18/2021 07/18/2021 08/08/2021 11:3 9 PM RIBBON BLOCKMAKER Rule Out COVID-19 12/18/2021 12/18/2021 12/19/2021 11:34 AM CDT Rule Out COVID-19 02/24/2022 02/24/2022 02/25/2022 1:08 PM CDT Rule Out COVID-19 04/26/2022 04/26/2022 04/26/2022 6:47 AM CDT Rule Out COVID-19 05/17/2022 05/17/2022 05/17/2022 10:20 PM RIBBON BLOCKMAKER Rule Out COVID-19 06/09/2022 06/09/2022 06/09/2022 9:35 AM RIBBON BLOCKMAKER COVID-19 06/09/2022 06/09/2022 06/30/2022 11:4 1 PM RIBBON BLOCKMAKER Rule Out COVID-19 11/10/2022 11/10/2022 11/11/2022 12:17 PM CDT Rule Out COVID-19 03/07/2023 03/07/2023 03/07/2023 1:20 PM CDT Rule Out COVID-19 12/26/2023 12/26/2023 12/26/2023 9:50 AM CDT Rule Out COVID-19 04/09/2024 04/09/2024 04/10/2024 6:48 PM CDT Assessment Noted Time PHQ-9 Depression Total Score: 9 06/25/20 20 7:04 AM RIBBON BLOCKMAKER documented as of this encounter Care Teams Sports Equipment Supervisor Relationship Specialty Start Date End Date Marija Edgar APRN SAMPLE TESTER GRINDER PCP - General Nurse Practitioner 04/30/20 04/14/23 Esha Grimm, PAUcheC [address] [place] [phone] PCP - General Family Medicine 05/04/23 Lita Oseguera Personal Advocate & Liaison (PAL) 02/28/20 03/27/23 Chanelle Mccann APRN CNM [address] [facility] [address] [place] [address] Assigned OBGYN Provider 05/02/2005/09 Kyara De La Fuente, RN Specialty Clinical Laboratory Scientist Neurology 06/04/20 03/05/21 Marija Edgar APRN CNP Assigned PCP 06/08/20 04/29/23 Mynor Broussard MD [address] 778385 Assigned Surgical Provider 06/01/20 11/28/21 Keisha Dotson MD [address] [place], [place] [address] Assigned Neuroscience Provider 06/04/20 04/01/23 Mary Mejia Financial Resource Worker 08/07/20 08/21/20 Stacey Briones, [facility] Lead Clinical Laboratory Scientist Primary Care - CC 08/11/2012/30 Lesley Moody, [facility] Community Health Worker 08/11/2010/01 Mary Mejia Financial Resource Worker 09/02/20 10/06/20 Lita Oseguera Personal Advocate & Liaison (PAL) Family Medicine 09/10/20 09/21/20 Galo Burrell MD Assigned Heart and Vascular Provider 10/05/20 04/02/22 Cristina Wood Financial Resource Worker 10/07/20 10/14/20 Lesley Moody, [facility] Community Health Worker 10/23/2012/30 Meredith Bedoya Financial Resource Worker 10/23/20 11/23/20 Cristina Wood Financial Resource Worker 02/09/21 02/09/21 Diana Desir, [facility] [address] [place] [address] Pharmacist Pharmacist 04/17/21 Rain Galaviz PA-C [address] [place] [address] [address] [facility] [place] [address] Physician Mold Stripper Dermatology 04/28/21 Summer Lara MD [address] [place], [place] [address] Assigned OBGYN Provider 05/10/2105/23 Summer Lara MD [address] [place], [place] [address] Assigned OBGYN Provider 05/31/21 Summer Lara MD [address] [facility] [address] [place], [place] [address] Assigned OBGYN Provider 05/24/2105/30 Tavia Wyatt MD [address] [place], [place] [address] Dermatology 07/14/21 Johnny Murillo MD [address] [place] [address] Assigned Musculoskeletal Provider 08/30/21 03/17/22 Erica Farrell APRN SAMPLE TESTER GRINDER [address] [facility] [place] [address] Nurse Practitioner Cardiovascular Disease 09/09/21 Teresita Bean [facility] [address] [place] [address] Pharmacist Pharmacist 09/24/21 09/29/21 Tavia Wyatt MD [address] [place] [address] Assigned Surgical Provider 11/29/21 05/07/22 Diana Desir, [facility] [address] [place] [address] Assigned MTM Pharmacist 01/02/22 Rich Barrtet MD [address] 6957[address] Physician Ophthalmology 01/21/22 Neil Kent MD [address] [place], [place] 301875 Dermatology 02/24/22 Roney Story DPM [address] [facility] [address] [place] [address] Assigned Musculoskeletal Provider 03/20/22 08/13/22 Erica Farrell APRN SAMPLE TESTER GRINDER [address] [place] [address] Assigned Heart and Vascular Provider 04/03/22 04/16/22 Diana Desir, [facility] [address] [place] [address] Assigned MTM Pharmacist 04/07/22 Frankie Jelena GarciaSONJA [address] [facility] [place] [address] Assigned Surgical Provider 05/08/22 10/08/22 Galo Burrell MD Assigned Heart and Vascular Provider 04/17/22 06/11/22 Livan Sharif MD [address] [place], [place] [address] Cardiovascular Disease 05/14/22 Livan Sharif MD [address] [place] [address] Assigned Heart and Vascular Provider 06/12/22 07/23/22 Catherine Cm MD [address] [place], [place] [address] Cardiovascular Disease 07/21/22 Valery Veronica, PA-C [address] [place] [address] Physician Mold Stripper Dermatology 07/21/22 Catherine Cm MD [address] [place] [address] Assigned Heart and Vascular Provider 07/24/22 11/05/22 Johnny Murillo MD [address] [address] Assigned Musculoskeletal Provider 08/14/22 10/08/22 Brea Quinn APRN SAMPLE TESTER GRINDER [address] [place] [address] Nurse Practitioner Dermatology 09/21/22 Brea Quinn APRN SAMPLE TESTER GRINDER [address] [facility] [place] [address] Assigned Surgical Provider 10/09/22 05/01/24 [place] [address] [facility] [address] [place] [address] Assigned Musculoskeletal Provider 10/09/22 05/01/24 Livan Sharif MD [address] [facility] [address] [place] [address] Assigned Heart and Vascular Provider 11/06/22 11/12/22 Catherine Cm MD [address] [place] [id number] [place] [address] Assigned Heart and Vascular Provider 11/13/22 05/27/23 Sydnie Martinez RN Personal Advocate & Liaison (PAL) Family Medicine 03/28/23 07/31/23 Alfonso Renteria MD [address] [facility] [address] [place] [address] Assigned Neuroscience Provider 04/02/23 Cheng Todd PA-C [address] [place] [address] Assigned PCP 04/30/23 07/15/23 Radha Lomeli APRN SAMPLE TESTER GRINDER [address] [facility] [address] [place] [address] Assigned Heart and Vascular Provider 05/28/23 Jelena David OD [address] [facility] [place] [address] MD Ophthalmology 06/15/23 Pao Joseph, VJ Personal Advocate & Liaison (PAL) Nurse 08/01/23 11/07/23 Esha Grimm PA-C [address] [place] [phone] Assigned PCP 07/16/23 Valery Veronica PA-C [address] [place] [address] 0[address]95 Physician Mold Stripper Dermatology 09/19/23 Rey Tay MD [address] [place] [address]195 Gastroenterology 09/20/23 Rocky Zepeda DO [address] [place] [address] 077325 Physician Gastroenterology 09/20/23 Philip Dumont MD [address] [place] [address] Physician Ophthalmology 09/22/23 Meredith Carrera PA-C [address] [place] [address] Assigned Gastroenterology Provider 11/01/23 Neil Kent MD [address] [address] Dermatology 11/02/23 [place] [address] [address] Neurological Surgery 12/26/23 Audrey Waite PA-C [address] [place] [address] Physician Mold Stripper Dermatology 02/28/24 Valery Veronica PA-C [address]73 [address], [place] [address] Physician Mold Stripper Dermatology 04/10/24 Herminia Hatch MD [facility] [place], [place] [address] Assigned Rheumatology Provider 07/02/24 documented as of this encounter
--- OUTSIDE RECORDS SUMMARY | 2024-07-22 22:49 | XMS_ITS | Encounter Summary ---
Author Organization [facility] Address [address] [place] [address] Care Team Providers Care Parquet Floor Layer Name Role Phone Lita Oseguera Unavailable Unavailable Rakesh Cid PA-C Unavailable [phone] Marija Edgar APRN MANDREL PULLER Primary Care Provider + Chanelle Mccann WOOD CUT ENGRAVER CN Unavailab le Lesley Moody CHW Unavailable Kyara De La Fuente RN Unavailable Marija Edgar APRN [facility] Unavailable Mynor Broussard MD Unavailable [phone] Keisha Dotson MD Unavailable Mary Mejia Unavailable Unavailable Stacey Briones FORKLIFT TECHNICIAN Unavailable Lesley Moody CHW Unavailable Mary Mejia Unavailable Unavailable Lita Oseguera Unavailable Unavailable Galo Burrell MD Unavailable Unavailable Cristina Wood Unavailable Lesley Moody CHW Unavailable Meredith Bedoya Unavailable Unavailable Cristina Wood Unavailable Diana Desir [facility] Unavailable [phone] Rain Galaviz PA-C Unavailable Summer Lara MD Unavailable [phone] Summer Lara MD Unavailable [phone] Summer Lara MD Unavailable [phone] Tavia Wyatt MD Unavailable [phone] Johnny Murillo MD Unavailable +1- Erica Farrell APRN MANDREL PULLER Unavailable + Teresita Bean [facility] Unavailable Tavia Wyatt MD Unavailable [phone] Diana Desir [facility] Unavailable [phone] Rich Barrett MD Unavailable [phone] Neil Kent MD Unavailable Roney Story DPM Unavailable Erica Farrell APRN MANDREL PULLER Unavailable + Diana Desir [facility] Unavailable [phone] FrankieJelena OD Unavailable Galo Burrell MD Unavailable Unavailable Livan Sharif MD Unavailable + Livan Sharif MD Unavailable + Catherine Cm MD Unavailable + Vlaery Veronica PA-C Unavailable [phone] Catherine Cm MD Unavailable + Johnny Murillo MD Unavailable +1- Brea Quinn APRN MANDREL PULLER Unavailable +[phone] [place], Brea P WOOD CUT ENGRAVER MANDREL PULLER Unavailable Jose Francisco Johnson MD Unavailable Livan Sharif MD Unavailable Catherine Cm MD Unavailable + Sydnie Martinez RN Unavailable Unavailable Alfonso Renteria MD Unavailable [phone] Esha Grimm PA-C Primary Care Provider Cheng Todd PA-C Unavailable Radha Lomeli WOOD CUT ENGRAVER MANDREL PULLER Unavailable Jelena David OD Unavailable Pao Jospeh RN Unavailable Unavailable Esha Grimm PA-C Unavailable [phone] Valery Veronica PA-C Unavailable Rey Tay MD Unavailable Rocky Zepeda DO Unavailable Philip Dumont MD Unavailable Meredith Carrera PA-C Unavailable Neil Kent MD Unavailable Juan Pablo Emmanuel MD Unavailable Audrey Waite PA-C Unavailable [phone] Valery Veronica PA-C Unavailable [phone] Herminia Hatch MD Unavailable Encounter Details Date Type Department Care Team (Late st Contact Info) Description 05/23/2020 [facility] [address] [address] Marija Edagr APRN MANDREL PULLER [address] [place], [place] [address] Social History [...] PM CDT Legal Sex Female 4:13 AM PROPERTY DAMAGE CLAIMS ADJUSTOR Gender Identity Female 03/02/2021 5:45 PM CDT Sexual Orientation Straight 02/28/2020 12 :51 AM CDT COVID-19 Exposure Response Date Recorded In the last month, have you been in contact with someone who was confirmed or suspected to have Coronavirus / COVID-19? No / Unsure 05/12/2020 9:03 AM PROPERTY DAMAGE CLAIMS ADJUSTOR documented as of this encounter Plan of Treatment Upcoming Encounters Date Type Department Care Team (Late st Contact Info) Description 10/23/2024 9:30 AM CDT Office Visit [facility] [address] [place] [address] [place] [address] [place] [address] Johnny Penn MD [address] [place], [place] [address] 11/28/2024 7:45 AM CDT Virtual Visit [facility] [address] 4th [place] [address] Meredith Carrera PA-C [address] [place] [address] [phone] documented as of this encounter Visit Diagnoses Not on filedocumented in this encounter Additional Health Concerns Infection Onset Date Last Indicated Resolved Time Rule Out COVID-19 07/30/2020 07/30/202007/3007/30/2020 7:11 PM PROPERTY DAMAGE CLAIMS ADJUSTOR Rule Out COVID-19 08/30/2020 08/30/2020 08/30/2020 5:05 PM PROPERTY DAMAGE CLAIMS ADJUSTOR Rule Out COVID-19 09/24/2020 09/24/2020 09/24/2020 9:24 AM CDT Rule Out COVID-19 11/05/2020 11/05/2020 11/06/2020 1:09 PM CDT Rule Out COVID-19 05/11/2021 05/11/2021 05/13/2021 10:18 AM CDT Rule Out COVID-19 07/13/2021 07/13/2021 07/14/2021 3:04 PM PROPERTY DAMAGE CLAIMS ADJUSTOR Rule Out COVID-19 07/18/2021 07/18/2021 07/20/2021 1:56 PM PROPERTY DAMAGE CLAIMS ADJUSTOR COVID-19 07/18/2021 07/18/2021 08/08/2021 11:3 9 PM PROPERTY DAMAGE CLAIMS ADJUSTOR Rule Out COVID-19 12/18/2021 12/18/2021 12/19/2021 11:34 AM CDT Rule Out COVID-19 02/24/2022 02/24/2022 02/25/2022 1:08 PM CDT Rule Out COVID-19 04/26/2022 04/26/2022 04/26/2022 6:47 AM CDT Rule Out COVID-19 05/17/2022 05/17/2022 05/17/2022 10:20 PM PROPERTY DAMAGE CLAIMS ADJUSTOR Rule Out COVID-19 06/09/2022 06/09/2022 06/09/2022 9:35 AM PROPERTY DAMAGE CLAIMS ADJUSTOR COVID-19 06/09/2022 06/09/2022 06/30/2022 11:4 1 PM PROPERTY DAMAGE CLAIMS ADJUSTOR Rule Out COVID-19 11/10/2022 11/10/2022 11/11/2022 12:17 PM CDT Rule Out COVID-19 03/07/2023 03/07/2023 03/07/2023 1:20 PM CDT Rule Out COVID-19 12/26/2023 12/26/2023 12/26/2023 9:50 AM CDT Rule Out COVID-19 04/09/2024 04/09/202404/1004/10/2024 6:48 PM CDT Assessment Noted Time PHQ-9 Depression Total Score: 6 08/28/19 21 7:05 AM PROPERTY DAMAGE CLAIMS ADJUSTOR documented as of this encounter Care Teams Parquet Floor Layer Relationship Specialty Start Date End Date Marija Edgar APRN MANDREL PULLER [address] [place] [address] PCP - General Nurse Practitioner 04/30/20 04/14/23 Esha Grimm PA-C [address] [place] [phone] PCP - General Family Medicine 05/04/23 Lita Oseguera Personal Advocate & Liaison (PAL) 02/28/20 03/27/23 Rakesh Cid PA-C [address] [place] [address] Assigned PCP 03/02/20 06/07/20 [place] [address] [place] [address] Assigned OBGYN Provider 05/02/2005/09 Lesley Moody W Community Health Worker 05/30/2005/12 Kyara De La Fuente, RN Specialty Ct Technologist Neurology 06/04/20 03/05/21 Marija Edgar APRN MANDREL PULLER [address] [place] [address] Assigned PCP 06/08/20 04/29/23 Mynor Broussard MD [address] [facility] [address] [place] [address] Assigned Surgical Provider 06/01/20 11/28/21 Keisha Dotson MD [address] [place] [address] Assigned Neuroscience Provider 06/04/20 04/01/23 Mary Mejia Financial Resource Worker 08/07/20 08/21/20 Stacey Briones, [facility] Lead Ct Technologist Primary Care - CC 08/11/2012/30 Lesley Moody, [facility] Community Health Worker 08/11/2010/01 Mary [...] [facility] [address] [place] [address] Pharmacist Pharmacist 04/17/21 Rain Galaviz PA-C [address] [place] [address] [place] [address] Physician Emergency Room Nurse Dermatology 04/28/21 Summer Lara MD [address] [place] [address] [phone] Assigned OBGYN Provider 05/10/2105/23 Summer Lara MD [address] [place] [address] Assigned OBGYN Provider 05/31/21 Summer Lara MD [address] [place] [address] Assigned OBGYN Provider 05/24/2105/30 Tavia Wyatt MD [address] [place] [address] Dermatology 07/14/21 Johnny Murillo MD [address] [place] [address] [address] [place] [address] Assigned Musculoskeletal Provider 08/30/21 03/17/22 Erica Farrell APRN MANDREL PULLER [address] [facility] [address] [place] [address] Nurse Practitioner Cardiovascular Disease 09/09/21 Teresita Bean, [facility] [address] [place] [phone] Pharmacist Pharmacist 09/24/21 09/29/21 Tavia Wyatt MD [address] [place] [address] [phone] Assigned Surgical Provider 11/29/21 05/07/22 Diana Desir, [facility] [address] [place] [address] Assigned MTM Pharmacist 01/02/22 Rich Barrett MD [address] [address] Physician Ophthalmology 01/21/22 Neil Kent MD [address] [place] [address] Dermatology 02/24/22 Roney Stoyr DPM [address] [facility] [address] [place] [address] Assigned Musculoskeletal Provider 03/20/22 08/13/22 Erica Farrell APRN MANDREL PULLER [facility] [place] [address] Assigned Heart and Vascular Provider 04/03/22 04/16/22 Diana Desir, [facility] [address] [place] [address] Assigned MTM Pharmacist 04/07/22 Jelena David OD [address] [place] [place] [address] Assigned Surgical Provider 05/08/22 10/08/22 Galo Burrell MD Assigned Heart and Vascular Provider 04/17/22 06/11/22 Livan Sharif MD [address] [place] [address] Cardiovascular Disease 05/14/22 Livan Sharif MD [address] [place] [address] Assigned Heart and Vascular Provider 06/12/22 07/23/22 Catherine Cm MD [address] [place] [address] Cardiovascular Disease 07/21/22 Valery Veronica, PAUcheC [address] [place] [address] [phone] Physician Emergency Room Nurse Dermatology 07/21/22 Catherien Cm MD [address] [place] [phone] Assigned Heart and Vascular Provider 07/24/22 11/05/22 Johnny Murillo MD [facility] [address] [phone] Assigned Musculoskeletal Provider 08/14/22 10/08/22 Brea Quinn APRN MANDREL PULLER [address] [place] [address] [phone] Nurse Practitioner Dermatology 09/21/22 Brea Quinn APRN MANDREL PULLER [address] [place] [address] [place] [id number] Assigned Surgical Provider 10/09/22 05/01/24 [place] [address] [place] [address] Assigned Musculoskeletal Provider 10/09/22 05/01/24 Livan Sharif MD [address] [place] [phone] Assigned Heart and Vascular Provider 11/06/22 11/12/22 Catherine Cm MD [address] [place] [address] Assigned Heart and Vascular Provider 11/13/22 05/27/23 Sydnie Martinez RN Personal Advocate & Liaison (PAL) Family Medicine 03/28/23 07/31/23 Alfonso Renteria MD [address]75 [facility] [address] [place], [place] 0738[address] Assigned Neuroscience Provider 04/02/23 Cheng Todd PA-C [address] [place] [address] [phone] Assigned PCP 04/30/23 07/15/23 Radha Lomeli, ARLENE MANDREL PULLER [address] [place] 634675 Assigned Heart and Vascular Provider 05/28/23 Jelena David OD [address] [facility] [place] [address] Ophthalmology 06/15/23 aPo Joseph, VJ Personal Advocate & Liaison (PAL) Nurse 08/01/23 11/07/23 Esha Grimm PA-C [address] [place] [address] Assigned PCP 07/16/23 Valery Veronica PA-C [address] [place] [address] 189565 Physician Emergency Room Nurse Dermatology 09/19/23 Rey Tay MD [address] [place] [address] [phone] Gastroenterology 09/20/23 Rocky Zepeda DO [address] [place] [address] [phone] Physician Gastroenterology 09/20/23 Philip Dumont MD [address] [place] [address] 970285 Physician Ophthalmology 09/22/23 Meredith Carrera PA-C [address] [place] [address] [phone] Assigned Gastroenterology Provider 11/01/23 Neil Kent MD [address] [phone] Dermatology 11/02/23 [place] [address] [place] [address] Neurological Surgery 12/26/23 Audrey Waite PA-C [address] [place] [address] Physician Emergency Room Nurse Dermatology 02/28/24 Valery Veronica PA-C [address] [place] [address] Physician Emergency Room Nurse Dermatology 04/10/24 Herminia Hatch MD [address] [place] [address] [phone] Assigned Rheumatology Provider 07/02/24 documented as of this encounter
--- OUTSIDE RECORDS SUMMARY | 2024-07-22 22:49 | XMS_ITS | Encounter Summary ---
Author Organization [place] Address [address] [place] [address] Care Team Providers Care Hand Binder Stripper Name Role Phone Lita Oseguera Unavailable Unavailable Rakesh Cid PA-C Unavailable [phone] Marija Edgar APRN BEATER BOSS Primary Care Provider + Chanelle Mccann SURGICAL SUPPLY ASSISTANT CN Unavailab le Lesley Moody CHW Unavailable Kyara De La Fuente RN Unavailable Marija Edgar APRN [facility] Unavailable [phone] Mynor Broussard MD Unavailable [phone] Keisha Dotson MD Unavailable [phone] Mary Mejia Unavailable Unavailable Stacey Briones LOCOMOTIVE DRIVER Unavailable Lesley Moody CHW Unavailable Mary Mejia Unavailable Unavailable Lita Oseguera Unavailable Unavailable Galo Burrell MD Unavailable Unavailable Cristina Wood Unavailable Lesley Moody CHW Unavailable Meredith Bedoya Unavailable Unavailable Cristina Wood Unavailable Diana Desir [facility] Unavailable [phone] Rain Galaviz PA-C Unavailable Summer Lara MD Unavailable [phone] Summer Lara MD Unavailable Summer Lara MD Unavailable [phone] Tavia Wyatt MD Unavailable [phone] Johnny Murillo MD Unavailable +1- Erica Farrell APRN BEATER BOSS Unavailable + Teresita Bean [facility] Unavailable Tavia Wyatt MD Unavailable [phone] Diana Desir [facility] Unavailable [phone] Rich Barrett MD Unavailable [phone] Neil Kent MD Unavailable Roney Story DPM Unavailable Erica Farrell APRN BEATER BOSS Unavailable + Diana Desir [facility] Unavailable [phone] FrankieJelena OD Unavailable Galo Burrell MD Unavailable Unavailable Livan Sharif MD Unavailable + Livan Sharif MD Unavailable + Catherine Cm MD Unavailable + Valery Veronica PA-C Unavailable [phone] Catherine Cm MD Unavailable + Johnny Murillo MD Unavailable +1- Brea Quinn APRN BEATER BOSS Unavailable [phone] [place], Brea P SURGICAL SUPPLY ASSISTANT [employer]ATER [employer]OSS Unavailable [phone] Jose Francisco Johnson MD Unavailable Livan Sharif MD Unavailable Catherine Cm MD Unavailable + Sydnie Martinez RN Unavailable Unavailable Alfonso Renteria MD Unavailable [phone] Esha Grimm PA-C Primary Care Provider Cheng Todd PA-C Unavailable Armani Radha Stovall SURGICAL SUPPLY ASSISTANT BEATER BOSS Unavailable Jelena David OD Unavailable Pao Joseph RN Unavailable Unavailable Esha Grimm PA-C Unavailable [phone] Valery Veronica PA-C Unavailable [phone] Rey Tay MD Unavailable Rocky Zepeda DO Unavailable Philip Dumont MD Unavailable Meredith Carrera PA-C Unavailable [phone] Neil Kent MD Unavailable Juan Pablo Emmanuel MD Unavailable [phone] Audrey Waite PA-C Unavailable Valery Veronica PA-C Unavailable [phone] Herminia Hatch MD Unavailable Reason for Visit * Reason Onset Date Comments Referral 05/19/2020 Encounter Details Date Type Department Care Team (Late st Contact Info) Description 05/19/2020 Telephone M Earl [facility] Epilepsy [facility] [address], [address] [place] [address] Unknown Referral Social History Tobacco [...] PM CDT Legal Sex Female 4:13 AM ASSEMBLER INSULATOR Gender Identity Female 03/02/2021 5:45 PM CDT Sexual Orientation Straight 02/28/2020 12 :51 AM CDT COVID-19 Exposure Response Date Recorded In the last month, have you been in contact with someone who was confirmed or suspected to have Coronavirus / COVID-19? No / Unsure 05/12/2020 9:03 AM ASSEMBLER INSULATOR documented as of this encounter Miscellaneous Notes * Telephone Encounter - Jolene Mcpherson - 05/19/2020 2:02 PM CST [facility] Phone Message May a detailed message be left on voicemail: yes Reason for Call: Appointment Intake Referring Provider Name: Marija Edgar APRN CNP in FAMILY PRACTICE Diagnosis and/or Symptoms: History of Seizures Being referred to [facility]. Please review. Thanks. Action Taken: Other: [facility] Travel Screening: Not Applicable MBLER INSULATOR documented in this encounter Plan of Treatment Upcoming Encounters Date Type Department Care Team (Late st Contact Info) Description 10/23/2024 9:30 AM CDT Office Visit [facility] [address], [address] [place] [address] [place] [address] [place] [address] Johnny Penn MD [address] [facility] [place] [id number] 11/28/2024 7:45 AM CDT Virtual Visit [facility] [address] [phone] Meredith Carrera PA-C [address] [place] [address] documented as of this encounter Visit Diagnoses Not on filedocumented in this encounter Additional Health Concerns Infection Onset Date Last Indicated Resolved Time Rule Out COVID-19 07/30/2020 07/30/2020 07/30/2020 7:11 PM ASSEMBLER INSULATOR Rule Out COVID-19 08/30/2020 08/30/2020 08/30/2020 5:05 PM ASSEMBLER INSULATOR Rule Out COVID-19 09/24/2020 09/24/2020 09/24/2020 9:24 AM CDT Rule Out COVID-19 11/05/2020 11/05/2020 11/06/2020 1:09 PM CDT Rule Out COVID-19 05/11/2021 05/11/2021 05/13/2021 10:18 AM CDT Rule Out COVID-19 07/13/2021 07/13/2021 07/14/2021 3:04 PM ASSEMBLER INSULATOR Rule Out COVID-19 07/18/2021 07/18/2021 07/20/2021 1:56 PM ASSEMBLER INSULATOR COVID-19 07/18/2021 07/18/2021 08/08/2021 11:3 9 PM ASSEMBLER INSULATOR Rule Out COVID-19 12/18/2021 12/18/2021 12/19/2021 11:34 AM CDT Rule Out COVID-19 02/24/2022 02/24/2022 02/25/2022 1:08 PM CDT Rule Out COVID-19 04/26/2022 04/26/2022 04/26/2022 6:47 AM CDT Rule Out COVID-19 05/17/2022 05/17/2022 05/17/2022 10:20 PM ASSEMBLER INSULATOR Rule Out COVID-19 06/09/2022 06/09/2022 06/09/2022 9:35 AM ASSEMBLER INSULATOR COVID-19 06/09/2022 06/09/2022 06/30/2022 11:4 1 PM ASSEMBLER INSULATOR Rule Out COVID-19 11/10/2022 11/10/2022 11/11/2022 12:17 PM CDT Rule Out COVID-19 03/07/2023 03/07/2023 03/07/2023 1:20 PM CDT Rule Out COVID-19 12/26/2023 12/26/2023 12/26/2023 9:50 AM CDT Rule Out COVID-19 04/09/2024 04/09/2024 04/10/2024 6:48 PM CDT Assessment Noted Time PHQ-9 Depression Total Score: 6 08/28/19 7:05 AM ASSEMBLER INSULATOR documented as of this encounter Care Teams Hand Binder Stripper Relationship Specialty Start Date End Date Marija Edgar APRN BEATER BOSS [address] [place] [address] PCP - General Nurse Practitioner 04/30/20 04/14/23 Esha Grimm PA-C [address] [place] [phone] PCP - General Family Medicine 05/04/23 Lita Oseguera Personal Advocate & Liaison (PAL) 02/28/20 03/27/23 Rakesh Cid PA-C [address] [place] [address] Assigned PCP 03/02/20 06/07/20 Chanelle Mccann APRN CNM [address] [place] [address] Assigned OBGYN Provider 05/02/2005/09 Lesley Moody, CHW Community Health Worker 05/30/2005/12 Kyara De La Fuente, RN Specialty Trimmer And Reinforcer Neurology 06/04/20 03/05/21 Marija Edgar APRN BEATER BOSS [address] [place] [address] Assigned PCP 06/08/20 04/29/23 Mynor Broussard MD [address] [place] [address] Assigned Surgical Provider 06/01/20 11/28/21 Keisha Dotson MD [address] [place], [place] [address] Assigned Neuroscience Provider 06/04/20 04/01/23 Mary Mejia Financial Resource Worker 08/07/20 08/21/20 Stacey Briones, [facility] Lead Trimmer And Reinforcer Primary Care - CC 08/11/2012/30 Lesley Moody, [facility] Community Health Worker 08/11/2010/01 Mary Mejia Financial Resource Worker 09/02/20 10/06/20 Lita Oseguera Personal Advocate & Liaison (PAL) Family Medicine 09/10/20 09/21/20 Galo Burrell MD Assigned Heart and Vascular Provider 10/05/20 04/02/22 Cristina Wood Financial Resource Worker 10/07/20 10/14/20 Lesley Moody, [facility] Community Health Worker 10/23/2012/30 Meredith Bedoya Financial Resource Worker 10/23/20 11/23/20 Cristina Wood Financial Resource Worker 02/09/21 02/09/21 Diana Desir, [facility] [address] [place] [address] Pharmacist Pharmacist 04/17/21 Rain Galaviz PA-C [address] [place] [address] [place] [address] Physician Casing Trimmer Dermatology 04/28/21 Summer Lara MD [address] [place], [place] [address] Assigned OBGYN Provider 05/10/2105/23 Summer Lara MD [address] [place], [place] [address] Assigned OBGYN Provider 05/31/21 Summer Lara MD [address] [facility] [address] [place], [place] [address] Assigned OBGYN Provider 05/24/2105/30 Tavia Wyatt MD [address] [place], [place] [address] Dermatology 07/14/21 Johnny Murillo MD [address] [place] [address] Assigned Musculoskeletal Provider 08/30/21 03/17/22 Erica Farrell APRN BEATER BOSS [address] [facility] [address] [place] [address] Nurse Practitioner Cardiovascular Disease 09/09/21 Teresita Bean [facility] [address] [place] [address] Pharmacist Pharmacist 09/24/21 09/29/21 Tavia Wyatt MD [address] [place] [address] Assigned Surgical Provider 11/29/21 05/07/22 Diana Desir, [facility] [address] [place] [address] Assigned MTM Pharmacist 01/02/22 Rich Barrett MD [address] [phone] Physician Ophthalmology 01/21/22 Neil Kent MD [address] [place], [place] [address] Dermatology 02/24/22 Roney Story DPM [address] [facility] [address] [place] [address] Assigned Musculoskeletal Provider 03/20/22 08/13/22 Erica Farrell APRN BEATER BOSS [address] [place] [address] Assigned Heart and Vascular Provider 04/03/22 04/16/22 Diana Desir, [facility] [address] [place] [address] Assigned MTM Pharmacist 04/07/22 Frankie Jelena GarciaSONJA [address] [place] [address] Assigned Surgical Provider 05/08/22 10/08/22 Galo Burrell MD Assigned Heart and Vascular Provider 04/17/22 06/11/22 Livan Sharif MD [address] [place] [address] Cardiovascular Disease 05/14/22 Livan Sharif MD [address] [place] [address] Assigned Heart and Vascular Provider 06/12/22 07/23/22 Catherine Cm MD [address] [place] [address] Cardiovascular Disease 07/21/22 Valery Veronica, PA-C [address] [place] [address] Physician Casing Trimmer Dermatology 07/21/22 Catherine Cm MD [address] [place] [address] Assigned Heart and Vascular Provider 07/24/22 11/05/22 Johnny Murillo MD [address] [address] Assigned Musculoskeletal Provider 08/14/22 10/08/22 Brea Quinn APRN BEATER BOSS [address] [place] [address] Nurse Practitioner Dermatology 09/21/22 Brea Quinn APRN BEATER BOSS [address] [facility] [place] [address] Assigned Surgical Provider 10/09/22 05/01/24 [place] [address] [facility] [address] [place] [address] Assigned Musculoskeletal Provider 10/09/22 05/01/24 Livan Sharif MD [address] [facility] [address] [place] [address] Assigned Heart and Vascular Provider 11/06/22 11/12/22 Catherine Cm MD [address] [facility] [place] [address] Assigned Heart and Vascular Provider 11/13/22 05/27/23 Sydnie Martinez RN Personal Advocate & Liaison (PAL) Family Medicine 03/28/23 07/31/23 Alfonso Renteria MD [address] [facility] 200 [place] [address] Assigned Neuroscience Provider 04/02/23 Cheng Todd PA-C [address] [place] [address] Assigned PCP 04/30/23 07/15/23 Radha Lomeli APRN BEATER BOSS [address] [facility] [address] [place] [address] Assigned Heart and Vascular Provider 05/28/23 Jelena David OD [address] [place] [address] MD Ophthalmology 06/15/23 Pao Joseph, VJ Personal Advocate & Liaison (PAL) Nurse 08/01/23 11/07/23 Esha Grimm PA-C [address] [place] [phone] Assigned PCP 07/16/23 Valery Veronica PA-C [address] [place] [address] Physician Casing Trimmer Dermatology 09/19/23 Rey Tay MD [address] [place] [address] Gastroenterology 09/20/23 Rocky Zepeda DO [address] [place] [address]39345 Physician Gastroenterology 09/20/23 Philip Dumont MD [address] [place] [address] Physician Ophthalmology 09/22/23 Meredith Carrera PA-C [address] [place] [address] Assigned Gastroenterology Provider 11/01/23 Neil Kent MD [address] [address] Dermatology 11/02/23 [place] [address] RA[address] [place] [address] Neurological Surgery 12/26/23 Audrey Waite PA-C 500 [place] [address] Physician Casing Trimmer Dermatology 02/28/24 Valery Veronica PA-C [address]8844 [address], [place] [address] Physician Casing Trimmer Dermatology 04/10/24 Herminia Hatch MD [facility]5 [place], [place] [address] Assigned Rheumatology Provider 07/02/24 documented as of this encounter
--- OUTSIDE RECORDS SUMMARY | 2024-07-22 22:49 | XMS_ITS | Encounter Summary ---
Author Organization [facility] Address [address] [place] [address] Care Team Providers Care Marketing Writer Name Role Phone Lita Oseguera Unavailable Unavailable Marija Edgar APRN AUTO RENTAL CLERK Primary Care Provider + Chanelle Mccann SANDBLAST CARVER CNM Unavailab le Kyara De La Fuente RN Unavailable [phone] Marija Edgar APRN AUTO RENTAL CLERK Unavailable Mynor Broussard MD Unavailable [phone] Keisha Dotson MD Unavailable Mary Mejia Unavailable Unavailable Stacey Briones PAPERBOARD MACHINE OPERATOR Unavailable [phone] Lesley Moody CHW Unavailable [phone] Mary Mejia Unavailable Unavailable Lita Oseguera Unavailable Unavailable Galo Burrell MD Unavailable Unavailable Cristina Wood Unavailable Lesley Moody CHW Unavailable [phone] Meredith Bedoya Unavailable Unavailable Cristina Wood Unavailable Diana Desir [facility] Unavailable Ruhland, Rain Lena PA-C Unavailable Summer Lara MD Unavailable [phone] Summer Lara MD Unavailable [phone] Summer Lara MD Unavailable Tavia Wyatt MD Unavailable [phone] Johnny Murillo MD Unavailable +1- Erica Farrell SANDBLAST CARVER AUTO RENTAL CLERK Unavailable VikasTeresita H Unavailable Tavia Wyatt MD Unavailable [phone] Diana Desir [facility] Unavailable [phone] Rich Barrett MD Unavailable Neil Kent MD Unavailable Roney Story [facility] Unavailable Erica Farrell APRN AUTO RENTAL CLERK Unavailable Diana Desir [facility] Unavailable [phone] Jelena David OD Unavailable Galo Burrell MD Unavailable Unavailable Livan Sharif MD Unavailable Livan Sharif MD Unavailable + Catherine Cm MD Unavailable + Valery Veronica PA-C Unavailable [phone] Catherine Cm MD Unavailable + Johnny Murillo MD Unavailable +1- Brea Quinn SANDBLAST CARVER AUTO RENTAL CLERK Unavailable +[phone] Brea Quinn SANDBLAST CARVER AUTO RENTAL CLERK Unavailable [phone] Jose Francisco Johnson MD Unavailable Livan Sharif MD Unavailable Catherine Cm MD Unavailable + Sydnie Martinez RN Unavailable Unavailable Alfonso Renteria MD Unavailable [phone] Esha Grimm PA-C Primary Care Provider Cheng Todd PA-C Unavailable ArmaniRadha APRN AUTO RENTAL CLERK Unavailable Jelena David OD Unavailable Pao Joseph RN Unavailable Unavailable Esha Grimm PA-C Unavailable [phone] Valery Veronica PA-C Unavailable [phone] Rey Tay MD Unavailable Rocky Zepeda DO Unavailable Philip Dumont MD Unavailable Meredith Carrera PA-C Unavailable [phone] Neil Kent MD Unavailable Juan Pablo Emmanuel MD Unavailable Audrey Waite PA-C Unavailable [phone] JeremíasValery damon PA-C Unavailable Herminia Hatch MD Unavailable Encounter Details Date Type Department Care Team (Late st Contact Info) Description 07/29/2020 MyC Medical Advice M [facility] Epilepsy Care [address], [address] [place] [address] Keisha Dotson MD 9 [place] [address] Social History Tobacco Use Types [...] PM CDT Legal Sex Female 4:13 AM WIRE DRAWING MACHINE OPERATOR Gender Identity Female 03/02/2021 5:45 PM CDT Sexual Orientation Straight 02/28/2020 12 :51 AM CDT COVID-19 Exposure Response Date Recorded In the last month, have you been in contact with someone who was confirmed or suspected to have Coronavirus / COVID-19? No / Unsure 07/30/2020 4:53 PM WIRE DRAWING MACHINE OPERATOR documented as of this encounter Plan of Treatment Upcoming Encounters Date Type Department Care Team (Late st Contact Info) Description 10/23/2024 9:30 AM CDT Office Visit [facility] Neurology [address], [address] [place] [phone] [place] [address] [phone] Johnny Penn MD 2742 [place], [place] [address] 11/28/2024 7:45 AM CDT Virtual Visit [facility] [address] [place] [address] Meredith Carrera PA-C [address] [place] [address] [phone] documented as of this encounter Visit Diagnoses Not on filedocumented in this encounter Additional Health Concerns Infection Onset Date Last Indicated Resolved Time Rule Out COVID-19 07/30/2020 07/30/2020 07/30/2020 7:11 PM WIRE DRAWING MACHINE OPERATOR Rule Out COVID-19 08/30/2020 08/30/2020 08/30/2020 5:05 PM WIRE DRAWING MACHINE OPERATOR Rule Out COVID-19 09/24/2020 09/24/2020 09/24/2020 9:24 AM CDT Rule Out COVID-19 11/05/2020 11/05/2020 11/06/2020 1:09 PM CDT Rule Out COVID-19 05/11/2021 05/11/2021 05/13/2021 10:18 AM CDT Rule Out COVID-19 07/13/2021 07/13/2021 07/14/2021 3:04 PM WIRE DRAWING MACHINE OPERATOR Rule Out COVID-19 07/18/2021 07/18/2021 07/20/2021 1:56 PM WIRE DRAWING MACHINE OPERATOR COVID-19 07/18/2021 07/18/2021 08/08/2021 11:3 9 PM WIRE DRAWING MACHINE OPERATOR Rule Out COVID-19 12/18/2021 12/18/2021 12/19/2021 11:34 AM CDT Rule Out COVID-19 02/24/2022 02/24/2022 02/25/2022 1:08 PM CDT Rule Out COVID-19 04/26/2022 04/26/2022 04/26/2022 6:47 AM CDT Rule Out COVID-19 05/17/2022 05/17/2022 05/17/2022 10:20 PM WIRE DRAWING MACHINE OPERATOR Rule Out COVID-19 06/09/2022 06/09/2022 06/09/2022 9:35 AM WIRE DRAWING MACHINE OPERATOR COVID-19 06/09/2022 06/09/2022 06/30/2022 11:4 1 PM WIRE DRAWING MACHINE OPERATOR Rule Out COVID-19 11/10/2022 11/10/2022 11/11/2022 12:17 PM CDT Rule Out COVID-19 03/07/2023 03/07/2023 03/07/2023 1:20 PM CDT Rule Out COVID-19 12/26/2023 12/26/2023 12/26/2023 9:50 AM CDT Rule Out COVID-19 04/09/2024 04/09/2024 04/10/2024 6:48 PM CDT Assessment Noted Time PHQ-9 Depression Total Score: 9 06/25/20 20 7:04 AM WIRE DRAWING MACHINE OPERATOR documented as of this encounter Care Teams Marketing Writer Relationship Specialty Start Date End Date Marija Edgar APRN AUTO RENTAL CLERK PCP - General Nurse Practitioner 04/30/20 04/14/23 Esha Grimm PA-C [address] [place] [phone] PCP - General Family Medicine 05/04/23 Lita Oseguera Personal Advocate & Liaison (PAL) 02/28/20 03/27/23 Chanelle Mccann APRN CNAdam [address] [facility] 200 [place] [address] Assigned OBGYN Provider 05/02/2005/09 Kyara De La Fuente, RN Specialty Counter Installer Neurology 06/04/20 03/05/21 Marija Edgar APRN AUTO RENTAL CLERK Assigned PCP 06/08/20 04/29/23 Mynor Broussard MD 6363 [facility] 500 [place] [address] Assigned Surgical Provider 06/01/20 11/28/21 Keisha Dotson MD 909 [place], [place] 161735 Assigned Neuroscience Provider 06/04/20 04/01/23 Mary Mejia Financial Resource Worker 08/07/20 08/21/20 Stacey Briones, PAPERBOARD MACHINE OPERATOR Lead Counter Installer Primary Care - CC 08/11/2012/30 Lesley Moody, [facility] Community Health Worker 08/11/2010/01 NikiatimothyMary Financial Resource Worker 09/02/20 10/06/20 Lita Oseguera Personal Advocate & Liaison (PAL) Family Medicine 09/10/20 09/21/20 Galo Burrell MD Assigned Heart and Vascular Provider 10/05/20 04/02/22 Cristina Wood Financial Resource Worker 10/07/20 10/14/20 Lesley Moody, [facility] Community Health Worker 10/23/2012/30 Meredith Bedoya Financial Resource Worker 10/23/20 11/23/20 Cristina Wood Financial Resource Worker 02/09/21 02/09/21 Diana Desir, [facility] [address] [place] [address] Pharmacist Pharmacist 04/17/21 Rain Galaviz PA-C [address] [place] [address] [address] [place], [place] [phone] Physician Interchange Agent Dermatology 04/28/21 Summer Lara MD [address] [place] [address] 480064 Assigned OBGYN Provider 05/10/2105/23 Summer Lara MD [address] [place] [address] [phone] Assigned OBGYN Provider 05/31/21 2 Summer Lara MD [address] [place] [address] Assigned OBGYN Provider 05/24/2105/30 Tavia Wyatt MD [address] [place] [address] Dermatology 07/14/21 Johnny Murillo MD [address] [place] [address] Assigned Musculoskeletal Provider 08/30/21 03/17/22 Erica Farrell APRN AUTO RENTAL CLERK 6405 [facility] [address] [place], [place] 157575 Nurse Practitioner Cardiovascular Disease 09/09/21 [facility] [address] [place], [place] [phone] Pharmacist Pharmacist 09/24/21 09/29/21 Tavia Wyatt MD [address] [place] [address] Assigned Surgical Provider 11/29/21 05/07/22 [facility] [address] [place] [address] Assigned MTM Pharmacist 01/02/22 Rich Barrett MD 516 [facility], [facility] 9A [place] [address] Physician Ophthalmology 01/21/22 Neil Kent MD 500 [place] [address] Dermatology 02/24/22 Roney Story DPM [address] [facility] [address] [place] [address] Assigned Musculoskeletal Provider 03/20/22 08/13/22 Erica Farrell APRN AUTO RENTAL CLERK 1700 [place] [address] Assigned Heart and Vascular Provider 04/03/22 04/16/22 Diana Desir, [facility] 3033 [place] [address] Assigned MTM Pharmacist 04/07/22 [place]el[place] David OD [address] [place] [address] Assigned Surgical Provider 05/08/22 10/08/22 Galo Burrell MD Assigned Heart and Vascular Provider 04/17/22 06/11/22 Livan Sharif MD [address] [place] [address] Cardiovascular Disease 05/14/22 Livan Sharif MD [address] [place] [address] Assigned Heart and Vascular Provider 06/12/22 07/23/22 Catherine Cm MD [address] [place] 930215 Cardiovascular Disease 07/21/22 Valery Veronica, PAUcheC 9 [place], [place] 042035 Physician Interchange Agent Dermatology 07/21/22 Catherine Cm MD [address] [place] [address] Assigned Heart and Vascular Provider 07/24/22 11/05/22 Johnny Murillo MD [address] [place] [address] Assigned Musculoskeletal Provider 08/14/22 10/08/22 Brea Qiunn APRN AUTO RENTAL CLERK [address] [place] [address] Nurse Practitioner Dermatology 09/21/22 Brea Quinn APRN AUTO RENTAL CLERK [address] [place] [address] Assigned Surgical Provider 10/09/22 05/01/24 [place] [address] [address] Assigned Musculoskeletal Provider 10/09/22 05/01/24 Livan Sharif MD [address] [place] [address] Assigned Heart and Vascular Provider 11/06/22 11/12/22 Catherine Cm MD [address] [place] [address] Assigned Heart and Vascular Provider 11/13/22 05/27/23 Sydnie Martinez RN Personal Advocate & Liaison (PAL) Family Medicine 03/28/23 07/31/23 Alfonso Renteria MD 5775 [facility] [address] 200 [place] [address] Assigned Neuroscience Provider 04/02/23 Cheng Todd PA-C [address] [place] [address] [phone] Assigned PCP 04/30/23 07/15/23 Radha Lomeli APRN AUTO RENTAL CLERK [address] [place] [address] Assigned Heart and Vascular Provider 05/28/23 Jelena David OD [address] [place] [address] Ophthalmology 06/15/23 Pao Joseph, VJ Personal Advocate & Liaison (PAL) Nurse 08/01/23 11/07/23 Esha Grimm PA-C [address] [place] [address] Assigned PCP 07/16/23 Valery Veronica PA-C [address] [place] [address] Physician Interchange Agent Dermatology 09/19/23 Rey Tay MD [address] [place] [address] Gastroenterology 09/20/23 Rocky Zepead DO 500 [place] [address] Physician Gastroenterology 09/20/23 Philip Dumont MD 6 [place] [address] Physician Ophthalmology 09/22/23 Meredith Carrera PA-C 909 [place] [address] Assigned Gastroenterology Provider 11/01/23 Neil Kent MD [address] [address] MD Dermatology 11/02/23 [place] [address] [address] Neurological Surgery 12/26/23 Audrey Waite PA-C 500 [place] [address] Physician Interchange Agent Dermatology 02/28/24 Valery Veronica PA-C 018296 [address] [address] Physician Interchange Agent Dermatology 04/10/24 Herminia Hatch MD [facility]5 [place], [place] [address] Assigned Rheumatology Provider 07/02/24 documented as of this encounter
--- OUTSIDE RECORDS SUMMARY | 2024-07-22 22:49 | XMS_ITS | Encounter Summary ---
Author Organization [facility] Address [address] [place] [address] Care Team Providers Care Payroll Coordinator Name Role Phone Lita Oseguera Unavailable Unavailable Marija Edgar APRN AGRICULTURE TEACHER Primary Care Provider + Chanelle Mccann APRN CNM Unavailab le Kyara De La Fuente RN Unavailable [phone] Marija Edgar APRN AGRICULTURE TEACHER Unavailable [phone] Mynor Broussard MD Unavailable [phone] Keisha Dotson MD Unavailable Stacey Briones TELEVISION NEWS VIDEO EDITOR Unavailable [phone] Lesley Moody CHW Unavailable Mary Mejia Unavailable Unavailable Lita Oseguera Unavailable Unavailable Galo Burrell MD Unavailable Unavailable Cristina Wood Unavailable Lesley Moody CHW Unavailable Meredith Bedoya Unavailable Unavailable Cristina Wood Unavailable Diana Desir [facility] Unavailable [phone] Rain Galaviz PA-C Unavailable [phone] Summer Lara MD Unavailable [phone] Summer Lara MD Unavailable [phone] Summer Lara MD Unavailable [phone] Tavia Wyatt MD Unavailable [phone] Johnny Murillo MD Unavailable +1- Erica Farrell APRN AGRICULTURE TEACHER Unavailable + Vikas Teresita Ka Walter H Unavailable Tavia Wyatt MD Unavailable [phone] Diana Desir [facility] Unavailable [phone] Rich Barrett MD Unavailable [phone] Neil Kent MD Unavailable Roney StoryM Unavailable [phone] Erica Farrell APRN AGRICULTURE TEACHER Unavailable + Diana Desir [facility] Unavailable [phone] Jelena David OD Unavailable [phone] Galo Burrell MD Unavailable Unavailable Livan Sharif MD Unavailable + Livan Sharif MD Unavailable + Catherine Cm MD Unavailable + Valery Veronica PA-C Unavailable [phone] Catherine Cm MD Unavailable + Johnny Murillo MD Unavailable +1- Brea Quinn APRN AGRICULTURE TEACHER Unavailable +[phone] Brea Quinn APRN AGRICULTURE TEACHER Unavailable [phone] Jose Francisco Johnson MD Unavailable + Livan Sharif MD Unavailable + Catherine Cm MD Unavailable + Sydnie Martinez RN Unavailable Unavailable Alfonso Renteria MD Unavailable [phone] Esha Grimm PA-C Primary Care Provider Cheng Todd PA-C Unavailable Radha Lomeli APRN AGRICULTURE TEACHER Unavailable FrankieJelena OD Unavailable Pao Joseph RN Unavailable Unavailable Esha Grimm PA-C Unavailable [phone] Valery Veronica PA-C Unavailable Rey Tay MD Unavailable Rocky Zepeda DO Unavailable Philip Dumont MD Unavailable Meredith Carrera PA-C Unavailable Neil Kent MD Unavailable Juan Pablo Emmanuel MD Unavailable [phone] Audrey Waite PA-C Unavailable JeremíasValery damon PA-C Unavailable [phone] Herminia Hatch MD Unavailable Encounter Details Date Type Department Care Team (Late st Contact Info) Description 08/24/[address] [facility] [id number] [place] [phone] Marija Edgar APRN AGRICULTURE TEACHER [address] [place] [address] Social History Tobacco Use Types Packs/Day [...] 08/07/2020 How often do you attend [facility] or [facility] services? More than 4 times [...] Answer Date Recorded PHQ-2 Score 0 08/12/2020 [place] [facility] - Occupational Stress [...] CDT Legal Sex Female 4:13 AM DATA SECURITY ANALYST Gender Identity Female 03/02/2021 5:45 PM CDT Sexual Orientation Straight 02/28/2020 12 :51 AM CDT COVID-19 Exposure Response Date Recorded In the last month, have you been in contact with someone who was confirmed or suspected to have Coronavirus / COVID-19? No / Unsure 08/20/2020 12:47 PM DATA SECURITY ANALYST documented as of this encounter Miscellaneous Notes * Telephone Encounter - Marija Edgar APRN CNP - 08/25/2020 11:47 AM DATA SECURITY ANALYST Replied via MyChart Marija Edgar APRN AGRICULTURE TEACHER on 08/25/2020 at 11:51 AM SECURITY ANALYST documented in this encounter Plan of Treatment Upcoming Encounters Date Type Department Care Team (Late st Contact Info) Description 10/23/2024 9:30 AM CDT Office Visit [facility] Neurology [address], [address] [place] [phone] [place] [address] 094667 Johnny Penn MD 3633 [place], [place] 6[address] 11/28/2024 7:45 AM CDT Virtual Visit [facility] Gastroenterology Clinic [address] [place] [phone] Meredith Carrera PA-C [address] [place] [address] 885765 documented as of this encounter Visit Diagnoses Not on filedocumented in this encounter Additional Health Concerns Infection Onset Date Last Indicated Resolved Time Rule Out COVID-19 08/30/2020 08/30/2020 08/30/2020 5:05 PM DATA SECURITY ANALYST Rule Out COVID-19 09/24/2020 09/24/2020 09/24/2020 9:24 AM CDT Rule Out COVID-19 11/05/2020 11/05/2020 11/06/2020 1:09 PM CDT Rule Out COVID-19 05/11/2021 05/11/2021 05/13/2021 10:18 AM CDT Rule Out COVID-19 07/13/2021 07/13/2021 07/14/2021 3:04 PM DATA SECURITY ANALYST Rule Out COVID-19 07/18/2021 07/18/2021 07/20/2021 1:56 PM DATA SECURITY ANALYST COVID-19 07/18/2021 07/18/2021 08/08/2021 11:3 9 PM DATA SECURITY ANALYST Rule Out COVID-19 12/18/2021 12/18/2021 12/19/2021 11:34 AM CDT Rule Out COVID-19 02/24/2022 02/24/2022 02/25/2022 1:08 PM CDT Rule Out COVID-19 04/26/2022 04/26/2022 04/26/2022 6:47 AM CDT Rule Out COVID-19 05/17/2022 05/17/2022 05/17/2022 10:20 PM DATA SECURITY ANALYST Rule Out COVID-19 06/09/2022 06/09/2022 06/09/2022 9:35 AM DATA SECURITY ANALYST COVID-19 06/09/2022 06/09/2022 06/30/2022 11:4 1 PM DATA SECURITY ANALYST Rule Out COVID-19 11/10/2022 11/10/2022 11/11/2022 12:17 PM CDT Rule Out COVID-19 03/07/2023 03/07/2023 03/07/2023 1:20 PM CDT Rule Out COVID-19 12/26/2023 12/26/2023 12/26/2023 9:50 AM CDT Rule Out COVID-19 04/09/2024 04/09/2024 04/10/2024 6:48 PM CDT Assessment Noted Time PHQ-9 Depression Total Score: 9 06/25/20 20 7:04 AM DATA SECURITY ANALYST documented as of this encounter Care Teams Payroll Coordinator Relationship Specialty Start Date End Date Marija Edgar APRN CNP PCP - General Nurse Practitioner 04/30/20 04/14/23 Esha Grimm PA-C [address] [place] [phone] PCP - General Family Medicine 05/04/23 Lita Oseguera Personal Advocate & Liaison (PAL) 02/28/20 03/27/23 Chanelle Mccann APRN CNAdam [address] [place] [address] 200 [place] [address] Assigned OBGYN Provider 05/02/2005/09 Kyara De La Fuente, VJ Specialty Facility Rehab Director Neurology 06/04/20 03/05/21 Marija Edgar APRN AGRICULTURE TEACHER Assigned PCP 06/08/20 04/29/23 Mynor Broussard MD 6363 [facility] 500 [place], [place] 321735 Assigned Surgical Provider 06/01/20 11/28/21 Keisha Dotson MD 909 [place], [place] 672955 Assigned Neuroscience Provider 06/04/20 04/01/23 Stacey Briones, TELEVISION NEWS VIDEO EDITOR Lead Facility Rehab Director Primary Care - CC 08/11/2012/30 Lesley Moody, W Community Health Worker 08/11/2010/01 Mary Mejia Financial Resource Worker 09/02/20 10/06/20 Lita Oseguera Personal Advocate & Liaison (PAL) Family Medicine 09/10/20 09/21/20 Galo Burrell MD Assigned Heart and Vascular Provider 10/05/20 04/02/22 Cristina Wood Financial Resource Worker 10/07/20 10/14/20 Lesley Moody, [facility] Community Health Worker 10/23/2012/30 Meredith Bedoya Financial Resource Worker 10/23/20 11/23/20 Cristina Wood Financial Resource Worker 02/09/21 02/09/21 Diana Desir, [facility] [address] [place], [place] 513466 Pharmacist Pharmacist 04/17/21 Rain Galaviz PA-C [address] [place] [address] [address] [place] [place], [place] [phone] Physician Die Cleaner Dermatology 04/28/21 Summer Lara MD [address] [place] [address] [phone] Assigned OBGYN Provider 05/10/2105/23 Summer Lara MD [address] [place] [address] [phone] Assigned OBGYN Provider 05/31/21 2 Summer Lara MD [address] [place] [address] [phone] Assigned OBGYN Provider 05/24/2105/30 Tavia Wyatt MD [address] [place] [address] [phone] Dermatology 07/14/21 Johnny Murillo MD [address] [facility] [address] [place] [address] Assigned Musculoskeletal Provider 08/30/21 03/17/22 Erica Farrell APRN AGRICULTURE TEACHER 6405 [facility] [address] [place] [address] Nurse Practitioner Cardiovascular Disease 09/09/21 Teresita Bean [facility] [address] [facility] [address] [place] [phone] Pharmacist Pharmacist 09/24/21 09/29/21 Tavia Wyatt MD [address] [place] [address] Assigned Surgical Provider 11/29/21 05/07/22 [facility] 3033 [place] [address] Assigned MTM Pharmacist 01/02/22 Rich Barrett MD 516 [facility] 9A [place], [place] 717165 Physician Ophthalmology 01/21/22 Neil Kent MD 500 [place], [place] [phone] Dermatology 02/24/22 Roney Story DPM 213[address] [facility] [address] [place], [place] 641337 Assigned Musculoskeletal Provider 03/20/22 08/13/22 Erica Farrell APRN AGRICULTURE TEACHER 1700 [place] [address] Assigned Heart and Vascular Provider 04/03/22 04/16/22 Diana Desir, [facility] 30[address] [place] [address] Assigned MTM Pharmacist 04/07/22 Jelena David OD [address] [facility] [place] [address] Assigned Surgical Provider 05/08/22 10/08/22 Galo Burrell MD Assigned Heart and Vascular Provider 04/17/22 06/11/22 Livan Sharif MD [address] [place] [address] Cardiovascular Disease 05/14/22 Livan Sharif MD [address] [place] [address] Assigned Heart and Vascular Provider 06/12/22 07/23/22 Catherine Cm MD [address] [place] 882705 Cardiovascular Disease 07/21/22 Valery Veronica, PAUcheC 909 [place] [address] Physician Die Cleaner Dermatology 07/21/22 Catherine Cm MD [address] [facility]00 [place] 750945 Assigned Heart and Vascular Provider 07/24/22 11/05/22 Johnny Murillo MD [address] 440304 Assigned Musculoskeletal Provider 08/14/22 10/08/22 Brea Quinn APRN AGRICULTURE TEACHER 500 [place], [place] 758415 Nurse Practitioner Dermatology 09/21/22 Brea Quinn APRN AGRICULTURE TEACHER 6401 [facility] [place] 764642 Assigned Surgical Provider 10/09/22 05/01/24 [place] [address] 161117 Assigned Musculoskeletal Provider 10/09/22 05/01/24 Livan Sharif MD [address] [facility]00 [place] 975835 Assigned Heart and Vascular Provider 11/06/22 11/12/22 Catherine Cm MD [address] [facility]00 [place] 589865 Assigned Heart and Vascular Provider 11/13/22 05/27/23 Sydnie Martinez RN Personal Advocate & Liaison (PAL) Family Medicine 03/28/23 07/31/23 Alfonso Renteria MD 5775 [facility] [address] 200 [place] [address] Assigned Neuroscience Provider 04/02/23 Cheng Todd PA-C [address] [place] [address] Assigned PCP 04/30/23 07/15/23 Radha Lomeli APRN AGRICULTURE TEACHER 6405 [facility] [address] [place], [place] 954485 Assigned Heart and Vascular Provider 05/28/23 Jelena David OD [address] [facility] [address] Ophthalmology 06/15/23 Pao Joseph, VJ Personal Advocate & Liaison (PAL) Nurse 08/01/23 11/07/23 Esha Grimm PA-C [address] [place] [address] Assigned PCP 07/16/23 Valery Veronica PA-C [address] [place] [address] 134575 Physician Die Cleaner Dermatology 09/19/23 Rey Tay MD [address] [place] [address] 233935 Gastroenterology 09/20/23 Rocky Zepeda DO [address] [place] [address] 986175 Physician Gastroenterology 09/20/23 Philip Dumont MD 516 [place] [address] Physician Ophthalmology 09/22/23 Meredith Carrera PA-C 909 [place] [address] Assigned Gastroenterology Provider 11/01/23 Neil Kent MD [address] [address] Dermatology 11/02/23 [place] [address] 403537 Neurological Surgery 12/26/23 Audrey Waite PA-C [address] [place] [address] [phone] Physician Die Cleaner Dermatology 02/28/24 Valery Veronica PA-C [address] [place] [address] Physician Die Cleaner Dermatology 04/10/24 Herminia Hatch MD [facility]5 [place] [address] Assigned Rheumatology Provider 07/02/24 documented as of this encounter
--- OUTSIDE RECORDS SUMMARY | 2024-07-22 22:49 | XMS_ITS | Encounter Summary ---
Author Organization [facility] Address [address] [place] [address] Care Team Providers Care Publications Production Supervisor Name Role Phone Lita Oseguera Unavailable Unavailable Marija Edgar APRN BOTTLE PACKER Primary Care Provider + Chanelle Mccann PUBLIC EVENTS FACILITIES RENTAL MANAGER CNM Unavailab le Kyara De La Fuente RN Unavailable [phone] Marija Edgar APRN BOTTLE PACKER Unavailable Mynor Broussard MD Unavailable [phone] Keisha Dotson MD Unavailable Mary Mejia Unavailable Unavailable Stacey Briones SHARED SERVICES MANAGER Unavailable Lesley Moody CHW Unavailable Mary Mejia Unavailable Unavailable Lita Oseguera Unavailable Unavailable Galo Burrell MD Unavailable Unavailable Cristina Wood Unavailable Lesley Moody CHW Unavailable Meredith Bedoya Unavailable Unavailable Cristina Wood Unavailable Diana Desir [facility] Unavailable Ruhland, Rain Lena PA-C Unavailable Summer Lara MD Unavailable [phone] Summer Lara MD Unavailable [phone] Summer Lara MD Unavailable [phone] Tavia Wyatt MD Unavailable [phone] Johnny Murillo MD Unavailable +1- Erica Farrell PUBLIC EVENTS FACILITIES RENTAL MANAGER BOTTLE PACKER Unavailable VikasTeresita H Unavailable Tavia Wyatt MD Unavailable [phone] Diana Desir [facility] Unavailable [phone] Rich Barrett MD Unavailable Neil Kent MD Unavailable Roney Story [facility] Unavailable Erica Farrell APRN BOTTLE PACKER Unavailable Diana Desir [facility] Unavailable [phone] Jelena David OD Unavailable Galo Burrell MD Unavailable Unavailable Livan Sharif MD Unavailable Livan Sharif MD Unavailable + Catherine Cm MD Unavailable + Valery Veronica PA-C Unavailable [phone] Catherine Cm MD Unavailable + Johnny Murillo MD Unavailable +1- Brea Quinn PUBLIC EVENTS FACILITIES RENTAL MANAGER BOTTLE PACKER Unavailable +[phone] Brea Quinn PUBLIC EVENTS FACILITIES RENTAL MANAGER BOTTLE PACKER Unavailable [phone] Jose Francisco Johnson MD Unavailable Livan Sharif MD Unavailable Catherine Cm MD Unavailable + Sydnie Martinez RN Unavailable Unavailable Alfonso Renteria MD Unavailable [phone] Esha Grimm PA-C Primary Care Provider Cheng Todd PA-C Unavailable [phone] ArmaniRadha APRN BOTTLE PACKER Unavailable Jelena David OD Unavailable Pao Joseph RN Unavailable Unavailable Esha Grimm PA-C Unavailable [phone] Valery Veronica PA-C Unavailable Rey Tay MD Unavailable Rocky Zepeda DO Unavailable Philip Dumont MD Unavailable [phone] Meredith Carrera PA-C Unavailable Neil Kent MD Unavailable Juan Pablo Emmanuel MD Unavailable [phone] Aurdey Waite PA-C Unavailable [phone] JeremíasValery damon PA-C Unavailable Herminia Hatch MD Unavailable Encounter Details Date Type Department Care Team (Late st Contact Info) Description 08/07/2020 MyC Medical Advice [facility] Care Coordination [facility] [address] [place] [address] Lesley Moody, [facility] Social History Tobacco Use Types Packs/Day [...] 08/07/2020 How often do you attend [facility] or buddhism services? More than 4 [...] Answer Date Recorded PHQ-2 Score 3 06/24/2020 [facility] of Occupat ional Health - Occupational Stress [...] PM CDT Legal Sex Female 4:13 AM WREATH INSPECTOR Gender Identity Female 03/02/2021 5:45 PM CDT Sexual Orientation Straight 02/28/2020 12 :51 AM CDT COVID-19 Exposure Response Date Recorded In the last month, have you been in contact with someone who was confirmed or suspected to have Coronavirus / COVID-19? No / Unsure 08/06/2020 2:03 PM WREATH INSPECTOR documented as of this encounter Plan of Treatment Upcoming Encounters Date Type Department Care Team (Late st Contact Info) Description 10/23/2024 9:30 AM CDT Office Visit [facility] Neurology Clinics [facility] [address] [facility], [address] [place] [phone] [place] [address] [place], [place] [address] Johnny Penn MD [address] [place] [id number] 11/28/2024 7:45 AM CDT Virtual Visit [facility] Gastroenterology Clinic [address] 4[address] [place] [phone] Meredith Carrera PA-C [address] [place] [address] [phone] documented as of this encounter Visit Diagnoses Not on filedocumented in this encounter Additional Health Concerns Infection Onset Date Last Indicated Resolved Time Rule Out COVID-19 08/30/2020 08/30/2020 08/30/2020 5:05 PM WREATH INSPECTOR Rule Out COVID-19 09/24/2020 09/24/2020 09/24/2020 9:24 AM CDT Rule Out COVID-19 11/05/2020 11/05/2020 11/06/2020 1:09 PM CDT Rule Out COVID-19 05/11/2021 05/11/2021 05/13/2021 10:18 AM CDT Rule Out COVID-19 07/13/2021 07/13/2021 07/14/2021 3:04 PM WREATH INSPECTOR Rule Out COVID-19 07/18/2021 07/18/2021 07/20/2021 1:56 PM WREATH INSPECTOR COVID-19 07/18/2021 07/18/2021 08/08/2021 11:3 9 PM WREATH INSPECTOR Rule Out COVID-19 12/18/2021 12/18/2021 12/19/2021 11:34 AM CDT Rule Out COVID-19 02/24/2022 02/24/2022 02/25/2022 1:08 PM CDT Rule Out COVID-19 04/26/2022 04/26/2022 04/26/2022 6:47 AM CDT Rule Out COVID-19 05/17/2022 05/17/2022 05/17/2022 10:20 PM WREATH INSPECTOR Rule Out COVID-19 06/09/2022 06/09/2022 06/09/2022 9:35 AM WREATH INSPECTOR COVID-19 06/09/2022 06/09/2022 06/30/2022 11:4 1 PM WREATH INSPECTOR Rule Out COVID-19 11/10/2022 11/10/2022 11/11/2022 12:17 PM CDT Rule Out COVID-19 03/07/2023 03/07/2023 03/07/2023 1:20 PM CDT Rule Out COVID-19 12/26/2023 12/26/2023 12/26/2023 9:50 AM CDT Rule Out COVID-19 04/09/2024 04/09/2024 04/10/2024 6:48 PM CDT Assessment Noted Time PHQ-9 Depression Total Score: 9 06/25/20 20 7:04 AM WREATH INSPECTOR documented as of this encounter Care Teams Publications Production Supervisor Relationship Specialty Start Date End Date Marija Edgar APRN BOTTLE PACKER PCP - General Nurse Practitioner 04/30/20 04/14/23 Esha Grimm PA-C [address] [place] [address] PCP - General Family Medicine 05/04/23 Lita Oseguera Personal Advocate & Liaison (PAL) 02/28/20 03/27/23 Chanelle Mccann APRN CNM [id number] [place] [address] Assigned OBGYN Provider 05/02/2005/09 Kyara De La Fuente, RN Specialty Aeronautics Commission Director Neurology 06/04/20 03/05/21 Marija Edgar APRN BOTTLE PACKER Assigned PCP 06/08/20 04/29/23 Mynor Broussard MD [address] [facility] [address] [place], [place] [phone] Assigned Surgical Provider 06/01/20 11/28/21 Keisha Dotson MD [address] [place], [place] 268[address] Assigned Neuroscience Provider 06/04/20 04/01/23 Mary Mejia Financial Resource Worker 08/07/20 08/21/20 Stacey Briones, [facility] Lead Aeronautics Commission Director Primary Care - CC 08/11/2012/30 Lesley [...] [facility] [address] [place] [address] Pharmacist Pharmacist 04/17/21 Rain Galaviz PA-C [address] [facility] [place] [address] Physician Tailor Fitter Dermatology 04/28/21 Summer Lara MD [address] [place] [address] Assigned OBGYN Provider 05/10/2105/23 Summer Lara MD [address] [place], [place] 57[address] Assigned OBGYN Provider 05/31/21 Summer Lara MD [address] [place], [place] [address] Assigned OBGYN Provider 05/24/2105/30 Tavia Wyatt MD [address] [place], [place] 8[address] Dermatology 07/14/21 Johnny Murillo MD [address] [facility] [address] [place] [address] Assigned Musculoskeletal Provider 08/30/21 03/17/22 Erica Farrell APRN BOTTLE PACKER [address] [facility] [address] [place] [address] Nurse Practitioner Cardiovascular Disease 09/09/21 Teresita Bean [facility] [address] [facility] [place] [address] Pharmacist Pharmacist 09/24/21 09/29/21 Tavia Wyatt MD [address] [place] [address] Assigned Surgical Provider 11/29/21 05/07/22 Diana Desir [facility] [address] [place] [address] Assigned MTM Pharmacist 01/02/22 Rich Barrett MD [address] [phone] Physician Ophthalmology 01/21/22 Neil Kent MD [address] [place] [address] Dermatology 02/24/22 Roney Story DPM [address] [facility] [address] [place] [address] Assigned Musculoskeletal Provider 03/20/22 08/13/22 Erica Farrell APRN BOTTLE PACKER [address] [place] [address] Assigned Heart and Vascular Provider 04/03/22 04/16/22 Diana Desir [facility] [address] [place] [address] Assigned MTM Pharmacist 04/07/22 [place] David OD [address] [facility] [place] [address] Assigned Surgical Provider 05/08/22 10/08/22 Galo Burrell MD Assigned Heart and Vascular Provider 04/17/22 06/11/22 Livan Sharif MD [address] [place] [address] [place], [place] 5326[address] Cardiovascular Disease 05/14/22 Livan Sharif MD [address] [address] [place] [address] Assigned Heart and Vascular Provider 06/12/22 07/23/22 Catherine Cm MD [address] [facility] [address] [place] 356215 Cardiovascular Disease 07/21/22 Valery Veronica, PA-C [address] [place], [place] [address] Physician Tailor Fitter Dermatology 07/21/22 Catherine Cm MD [address] [address] [place] [phone] Assigned Heart and Vascular Provider 07/24/22 11/05/22 Johnny Murillo MD [address] [place] [place] [address] [phone] Assigned Musculoskeletal Provider 08/14/22 10/08/22 Brea Quinn APRN BOTTLE PACKER [address] [place] [address] Nurse Practitioner Dermatology 09/21/22 Brea Quinn APRN BOTTLE PACKER [address] [place] [address] Assigned Surgical Provider 10/09/22 05/01/24 [place] [address] [address] Assigned Musculoskeletal Provider 10/09/22 05/01/24 Livan Sharif MD [address] [facility] [address] [place] [address] Assigned Heart and Vascular Provider 11/06/22 11/12/22 Catherine Cm MD [address] [facility] [address] [place] [address] Assigned Heart and Vascular Provider 11/13/22 05/27/23 Sydnie Martinez RN Personal Advocate & Liaison (PAL) Family Medicine 03/28/23 07/31/23 Alfonso Renteria MD [address] [facility] [address] [place], [place] [address] Assigned Neuroscience Provider 04/02/23 Cheng Todd PA-C [address] [place] [address] [phone] Assigned PCP 04/30/23 07/15/23 Radha Lomeli APRN CNP [address] [facility] [address] [place] [address] Assigned Heart and Vascular Provider 05/28/23 [place]elena David OD [address] [place] [address] MD Ophthalmology 06/15/23 Pao Joseph, VJ Personal Advocate & Liaison (PAL) Nurse 08/01/23 11/07/23 Esha Grimm PA-C [address] [place] [phone] Assigned PCP 07/16/23 Valery Veronica PA-C [address] [place] [address] Physician Tailor Fitter Dermatology 09/19/23 Rey Tay MD [address] [place] [address] 886215 MD Gastroenterology 09/20/23 Rocky Zepeda DO [address] [place] [address] 907405 Physician Gastroenterology 09/20/23 Philip Dumont MD [address] [place] [address] 685035 Physician Ophthalmology 09/22/23 Meredith Carrera PA-C [address] [place] [address] 870725 Assigned Gastroenterology Provider 11/01/23 Neil Kent MD [address] [address] Dermatology 11/02/23 [place] [address] [place] [address] [address] Neurological Surgery 12/26/23 Audrey Waite PAUcheC [address] [place] [address] Physician Tailor Fitter Dermatology 02/28/24 Valery Veronica PABaldo 736292 [address] [place] [address] Physician Tailor Fitter Dermatology 04/10/24 Herminia Hatch MD [facility] [place], [place] [phone] Assigned Rheumatology Provider 07/02/24 documented as of this encounter
--- OUTSIDE RECORDS SUMMARY | 2024-07-22 22:49 | XMS_ITS | Encounter Summary ---
Author Organization [facility] Address [address] [place] [address] Care Team Providers Care Control Room Technician Name Role Phone Lita Oseguera Unavailable Unavailable Marija Edgar APRN FRUIT PICKER Primary Care Provider + Chanelle Mccann DEPARTMENT HEAD CNM Unavailab le Kyara De La Fuente RN Unavailable [phone] Marija Edgar APRN FRUIT PICKER Unavailable [phone] Mynor Broussard MD Unavailable [phone] Keisha Dotson MD Unavailable Mary Mejia Unavailable Unavailable Stacey Briones EXPERIMENTAL OUTBOARD MOTORS MECHANIC Unavailable Lesley Moody CHW Unavailable [phone] Mary Mejia Unavailable Unavailable Lita Oseguera Unavailable Unavailable Galo Burrell MD Unavailable Unavailable Cristina Wood Unavailable Lesley Moody CHW Unavailable [phone] Meredith Bedoya Unavailable Unavailable Cristina Wood Unavailable Diana Desir [facility] Unavailable Ruhland, Rain Lena PA-C Unavailable Summer Lara MD Unavailable [phone] Summer Lara MD Unavailable [phone] Summer Lara MD Unavailable [phone] Tavia Wyatt MD Unavailable [phone] Johnny Murillo MD Unavailable +1- Erica Farrell DEPARTMENT HEAD FRUIT PICKER Unavailable VikasTeresita H Unavailable Tavia Wyatt MD Unavailable [phone] Diana Desir [facility] Unavailable [phone] Rich Barrett MD Unavailable Neil Kent MD Unavailable Roney Story [facility] Unavailable Erica Farrell APRN FRUIT PICKER Unavailable Diana Desir [facility] Unavailable [phone] Jelena David OD Unavailable Galo Burrell MD Unavailable Unavailable Livan Sharif MD Unavailable Livan Sharif MD Unavailable + Catherine Cm MD Unavailable + Valery Veronica PA-C Unavailable [phone] Catherine Cm MD Unavailable + Johnny Murillo MD Unavailable +1- Brea Quinn DEPARTMENT HEAD FRUIT PICKER Unavailable +[phone] Brea Quinn DEPARTMENT HEAD FRUIT PICKER Unavailable [phone] Jose Francisco Johnson MD Unavailable Livan Sharif MD Unavailable Catherine Cm MD Unavailable + Sydnie Martinez RN Unavailable Unavailable Alfonso Renteria MD Unavailable [phone] Esha Grimm PA-C Primary Care Provider Cheng Todd PA-C Unavailable Radha Lomeli APRN FRUIT PICKER Unavailable FrankieJelena OD Unavailable [phone] Pao Joseph RN Unavailable Unavailable Esha Grimm PA-C Unavailable [phone] Valery Veronica PA-C Unavailable Rey Tay MD Unavailable Rocky Zepeda DO Unavailable Philip Dumont MD Unavailable Meredith Carrera PA-C Unavailable Neil Kent MD Unavailable Juan Pablo Emmanuel MD Unavailable Audrey Waite PA-C Unavailable [phone] JeremíasValery damon PA-C Unavailable Herminia Hatch MD Unavailable Encounter Details Date Type Department Care Team (Latest Contact Info) Description 07/29/2020 MyC Medical Advice [facility] [id number] [place] [phone] Marija Edgar APRN FRUIT PICKER [address] [place] [address] Palpitations (Primary Dx) Social History Tobacco [...] PM CDT Legal Sex Female 4:13 AM [employer] Gender Identity Female 03/02/2021 5:45 PM CDT Sexual Orientation Straight 02/28/2020 12 :51 AM CDT COVID-19 Exposure Response Date Recorded In the last month, have you been in contact with someone who was confirmed or suspected to have Coronavirus / COVID-19? No / Unsure 07/30/2020 4:53 PM [employer] documented as of this encounter Miscellaneous Notes * Telephone Encounter - Marija Edgar APRN FRUIT PICKER - 07/30/2020 10:21 AM [employer] Responded via behaviewhart Marija Edgar APRN FRUIT PICKER on 07/30/2020 at 10:28 AM ENTER [employer] documented in this encounter Plan of Treatment Upcoming Encounters Date Type Department Care Team (Late st Contact Info) Description 10/23/2024 9:30 AM CDT Office Visit [facility] Neurology [address] [place] [address] [place] [address] [place], [place] [address] Johnny Penn MD [address] [place] [address] 11/28/2024 7:45 AM CDT Virtual Visit [facility] G[facility]ology [facility] [address] 4[address] [place] [address] Meredith Carrera PAUcheC [address] [place] [address] [phone] (work) documented as of this encounter Visit Diagnoses Diagnosis Palpitations- Primary documented in this encounter Additional Health Concerns Infection Onset Date Last Indicated Resolved Time Rule Out COVID-19 07/30/2020 07/30/2020 07/30/2020 7:11 PM [employer] Rule Out COVID-19 08/30/2020 08/30/2020 08/30/2020 5:05 PM [employer] Rule Out COVID-19 09/24/2020 09/24/2020 09/24/2020 9:24 AM CDT Rule Out COVID-19 11/05/2020 11/05/2020 11/06/2020 1:09 PM CDT Rule Out COVID-19 05/11/2021 05/11/2021 05/13/2021 10:18 AM CDT Rule Out COVID-19 07/13/2021 07/13/2021 07/14/2021 3:04 PM [employer] Rule Out COVID-19 07/18/2021 07/18/2021 07/20/2021 1:56 PM [employer] COVID-19 07/18/2021 07/18/2021 08/08/2021 11:3 9 PM [employer] Rule Out COVID-19 12/18/2021 12/18/2021 12/19/2021 11:34 AM CDT Rule Out COVID-19 02/24/2022 02/24/2022 02/25/2022 1:08 PM CDT Rule Out COVID-19 04/26/2022 04/26/2022 04/26/2022 6:47 AM CDT Rule Out COVID-19 05/17/2022 05/17/2022 05/17/2022 10:20 PM [employer] Rule Out COVID-19 06/09/2022 06/09/2022 06/09/2022 9:35 AM [employer] COVID-19 06/09/2022 06/09/2022 06/30/2022 11:4 1 PM [employer] Rule Out COVID-19 11/10/2022 11/10/2022 11/11/2022 12:17 PM CDT Rule Out COVID-19 03/07/2023 03/07/2023 03/07/2023 1:20 PM CDT Rule Out COVID-19 12/26/2023 12/26/2023 12/26/2023 9:50 AM CDT Rule Out COVID-19 04/09/2024 04/09/2024 04/10/2024 6:48 PM CDT Assessment Noted Time PHQ-9 Depression Total Score: 9 06/25/20 7:04 AM [employer] documented as of this encounter Care Teams Control Room Technician Relationship Specialty Start Date End Date Marija Edgar APRN FRUIT PICKER PCP - General Nurse Practitioner 04/30/20 04/14/23 Esha Grimm PA-C [address] [place] [phone] PCP - General Family Medicine 05/04/23 Lita Oseguera Personal Advocate & Liaison (PAL) 02/28/20 03/27/23 Chanelle Mccann APRN CNAdam [id number] [place] [address] [address] [place], [place] 165207 Assigned OBGYN Provider 05/02/2005/09 Kyara De La Fuente, RN Specialty Payroll Manager Neurology 06/04/20 03/05/21 Marija Edgar APRN FRUIT PICKER Assigned PCP 06/08/20 04/29/23 Mynor Broussard MD [address] [facility] 500 [place] [address] Assigned Surgical Provider 06/01/20 11/28/21 Keisha Dotson MD [address] [place] [address] Assigned Neuroscience Provider 06/04/20 04/01/23 Aditi Mjeiandra Financial Resource Worker 08/07/20 08/21/20 Stacey Briones, [facility] Lead Payroll Manager Primary Care - CC 08/11/2012/30 Lesley Moody, [facility] Community Health Worker 08/11/2010/01 Nikiatimothy Mary Financial Resource Worker 09/02/20 10/06/20 Lita Oseguera Personal Advocate & Liaison (PAL) Family Medicine 09/10/20 09/21/20 Galo Burrell MD Assigned Heart and Vascular Provider 10/05/20 04/02/22 Cristina Wood Financial Resource Worker 10/07/20 10/14/20 Lesley Moody, [facility] Community Health Worker 10/23/2012/30 Meredith Bedoya Financial Resource Worker 10/23/20 11/23/20 Cristina Wood Financial Resource Worker 02/09/21 02/09/21 Diana Desir, [facility] [address] [place], [place] [phone] Pharmacist Pharmacist 04/17/21 Rain Galaviz PA-C [address] [place] [address] [address] [place], [place] [phone] Physician Web Press Operator Apprentice Dermatology 04/28/21 Summer Lara MD [address] [place], [place] [phone] Assigned OBGYN Provider 05/10/2105/23 Summer Lara MD [address] [place] [address] 503114 Assigned OBGYN Provider 05/31/21 2 Summer Lara MD [address] [place] [address] [phone] Assigned OBGYN Provider 05/24/2105/30 Tavia Wyatt MD [address] [place] [address] [phone] Dermatology 07/14/21 Johnny Murillo MD [facility] [place] [address] Assigned Musculoskeletal Provider 08/30/21 03/17/22 Erica Farrell APRN [facility] [address] [facility] [address] [place] [address] Nurse Practitioner Cardiovascular Disease 09/09/21 Teresita Bean [facility] [address] [place], [place] [phone] Pharmacist Pharmacist 09/24/21 09/29/21 Tavia Wyatt MD [address] [place], [place] [phone] Assigned Surgical Provider 11/29/21 05/07/22 Diana Desir, [facility] [address] [place] [address] Assigned MTM Pharmacist 01/02/22 Rich Barrett MD [address] [address] Physician Ophthalmology 01/21/22 Neil Kent MD [address] [place], [place] [phone] Dermatology 02/24/22 Roney Story DPM [address] [facility] [address] [place], [place] [phone] Assigned Musculoskeletal Provider 03/20/22 08/13/22 Erica Farrell APRN FRUIT PICKER [address] [place] [address] Assigned Heart and Vascular Provider 04/03/22 04/16/22 Diana Desir, [facility] [address] [place] [address] Assigned MTM Pharmacist 04/07/22 Jelena David OD [address] [facility] [place] [address] Assigned Surgical Provider 05/08/22 10/08/22 Galo Burrell MD Assigned Heart and Vascular Provider 04/17/22 06/11/22 Livan Sharif MD [address] [facility] [address] [place] [address] Cardiovascular Disease 05/14/22 Livan Sharif MD [address], [facility] [address] [place] [address] Assigned Heart and Vascular Provider 06/12/22 07/23/22 Catherine Cm MD [address] [facility] [address] [place] [address] Cardiovascular Disease 07/21/22 Valery Vreonica PAUcheC [address] [place] [address] [phone] Physician Web Press Operator Apprentice Dermatology 07/21/22 Catherine Cm MD [address] [facility] [place] [address] Assigned Heart and Vascular Provider 07/24/22 11/05/22 Johnny Murillo MD [facility] [address] Assigned Musculoskeletal Provider 08/14/22 10/08/22 Brea Quinn APRN FRUIT PICKER [address] [place] [address] [phone] Nurse Practitioner Dermatology 09/21/22 Brea Quinn APRN FRUIT PICKER [address] [place] [address] [place] 528192 Assigned Surgical Provider 10/09/22 05/01/24 [place] [address] [place], [place] [address] [address] Assigned Musculoskeletal Provider 10/09/22 05/01/24 Livan Sharif MD [address], [facility] [address] [place] 450485 Assigned Heart and Vascular Provider 11/06/22 11/12/22 Catherine Cm MD [address] [facility] [address] [place] [address] Assigned Heart and Vascular Provider 11/13/22 05/27/23 Sydnie Martinez, RN Personal Advocate & Liaison (PAL) Family Medicine 03/28/23 07/31/23 Alfonso Renteria MD [address] [facility] 200 [place] [address] Assigned Neuroscience Provider 04/02/23 Cheng Todd PA-C [address] [place] [address] [phone] Assigned PCP 04/30/23 07/15/23 Radha Lomeli, DEPARTMENT HEAD FRUIT PICKER [address] [place] [address] Assigned Heart and Vascular Provider 05/28/23 Jelena David OD [facility] [facility] [place] [address] Ophthalmology 06/15/23 Pao Joseph, VJ Personal Advocate & Liaison (PAL) Nurse 08/01/23 11/07/23 Esha Grimm PA-C [address] [place] [phone] Assigned PCP 07/16/23 Valery Veronica PA-C [address] [place], [place] 313905 Physician Web Press Operator Apprentice Dermatology 09/19/23 Rey Tay MD [address] [place] [address] 795215 MD Gastroenterology 09/20/23 Rocky Zepeda DO [address] [place] [address] 959415 Physician Gastroenterology 09/20/23 Philip Dumont MD [address] [place] [address] [phone] Physician Ophthalmology 09/22/23 Meredith Carrera PA-C [address] [place], [place] 362795 Assigned Gastroenterology Provider 11/01/23 Neil Kent MD [address] [address] Dermatology 11/02/23 [place] [address] [facility] [place] [address] Neurological Surgery 12/26/23 Audrey Waite PA-C 500 [place] [address] Physician Web Press Operator Apprentice Dermatology 02/28/24 Valery Veronica PA-C [address] [place] [address] Physician Web Press Operator Apprentice Dermatology 04/10/24 Herminia Hatch MD [address] [place] [address] Assigned Rheumatology Provider 07/02/24 documented as of this encounter
--- OUTSIDE RECORDS SUMMARY | 2024-07-22 22:49 | XMS_ITS | Encounter Summary ---
Author Organization [facility] Address [address] [place] [address] Care Team Providers Care Hay Sorter Name Role Phone Lita Oseguera Unavailable Unavailable Rakesh Cid PA-C Unavailable Marija Edgar APRN OFFSET PRESS OPERATOR Primary Care Provider + Chanelle Mccann HOUSECLEANER CN Unavailab le Lesley Moody CHW Unavailable [phone] Kyara De La Fuente RN Unavailable [phone] Marija Edgar APRN [facility] Unavailable [phone] Mynor Broussard MD Unavailable [phone] Keisha Dotson MD Unavailable Mary Mejia Unavailable Unavailable Stacey Briones SECOND RIDE FARE COLLECTOR Unavailable [phone] Lesley Moody CHW Unavailable Mary Mejia Unavailable Unavailable Lita Oseguera Unavailable Unavailable Galo Burrell MD Unavailable Unavailable Cristina Wood Unavailable Lesley Moody CHW Unavailable Meredith Bedoya Unavailable Unavailable Cristina Wood Unavailable Diana Desir [facility] Unavailable [phone] Rain Galaviz PA-C Unavailable Summer Lara MD Unavailable [phone] Summer Lara MD Unavailable [phone] Summer Lara MD Unavailable [phone] Tavia Wyatt MD Unavailable [phone] Johnny Murillo MD Unavailable +1- Erica Farrell APRN OFFSET PRESS OPERATOR Unavailable + Teresita Bean [facility] Unavailable Tavia Wyatt MD Unavailable [phone] iDana Desir [facility] Unavailable [phone] Rich Barrett MD Unavailable [phone] Neil Kent MD Unavailable Roney Story DPM Unavailable Erica Farrell APRN OFFSET PRESS OPERATOR Unavailable + Diana Desir [facility] Unavailable [phone] FrankieJelena OD Unavailable [phone] Galo Burrell MD Unavailable Unavailable Livan Sharif MD Unavailable + Livan Sharif MD Unavailable + Catherine Cm MD Unavailable + Valery Veronica PA-C Unavailable [phone] Catherine Cm MD Unavailable + Johnny Murillo MD Unavailable +1- Brea Quinn APRN OFFSET PRESS OPERATOR Unavailable +[phone] [place], Brea P HOUSECLEANER OFFSET PRESS OPERATOR Unavailable Jose Francisco Johnson MD Unavailable Livan Sharif MD Unavailable Catherine Cm MD Unavailable + Sydnie Martinez RN Unavailable Unavailable Alfonso Renteria MD Unavailable [phone] Esha Grimm PA-C Primary Care Provider Cheng Todd PA-C Unavailable Radha Lomeli HOUSECLEANER OFFSET PRESS OPERATOR Unavailable Jelena David OD Unavailable Pao Joseph RN Unavailable Unavailable Esha Grimm PA-C Unavailable [phone] Valery Veronica PA-C Unavailable Rey Tay MD Unavailable Rocky Zepeda DO Unavailable Philip Dumont MD Unavailable Meredith Carrera PA-C Unavailable [phone] Neil Kent MD Unavailable Juan Pablo Emmanuel MD Unavailable Audrey Waite PA-C Unavailable [phone] Valery Veronica PA-C Unavailable [phone] Herminia Hatch MD Unavailable Encounter Details Date Type Department Care Team (Late st Contact Info) Description 06/05/2020 [facility] [address] [address] Marija Edgar APRN OFFSET PRESS OPERATOR [address] [place], [place] [address] Social History [...] PM CDT Legal Sex Female 4:13 AM RECORDING ENGINEER Gender Identity Female 03/02/2021 5:45 PM CDT Sexual Orientation Straight 02/28/2020 12 :51 AM CDT COVID-19 Exposure Response Date Recorded In the last month, have you been in contact with someone who was confirmed or suspected to have Coronavirus / COVID-19? No / Unsure 06/04/2020 10:30 AM RECORDING ENGINEER documented as of this encounter Miscellaneous Notes * Telephone Encounter - Marija Edgar APRN CNP - 06/09/2020 9:38 AM RECORDING ENGINEER Those referrals have been placed. The mental health attempted call but patient did not answer. Please have patient check voicemail's or await one further follow-up call. They will call her to set up Holter monitor. Thank you Marija Edgar APRN CNP on 06/09/2020 at 9:40 AM RDING ENGINEER documented in this encounter Plan of Treatment Upcoming Encounters Date Type Department Care Team (Late st Contact Info) Description 10/23/2024 9:30 AM CDT Office Visit [facility] [place] [address] [place] [address], [address] [place] [address] [place] [address] [address] [place] [address] Johnny Penn MD [address] [facility] [place] [address] 11/28/2024 7:45 AM CDT Virtual Visit [facility] [place] [address] [facility] [address] [place] [address] Meredith Carrera PA-C [address] [place] [address] documented as of this encounter Visit Diagnoses Not on filedocumented in this encounter Additional Health Concerns Infection Onset Date Last Indicated Resolved Time Rule Out COVID-19 07/30/2020 07/30/2020 07/30/2020 7:11 PM RECORDING ENGINEER Rule Out COVID-19 08/30/2020 08/30/2020 08/30/2020 5:05 PM RECORDING ENGINEER Rule Out COVID-19 09/24/2020 09/24/2020 09/24/2020 9:24 AM CDT Rule Out COVID-19 11/05/2020 11/05/2020 11/06/2020 1:09 PM CDT Rule Out COVID-19 05/11/2021 05/11/2021 05/13/2021 10:18 AM CDT Rule Out COVID-19 07/13/2021 07/13/2021 07/14/2021 3:04 PM RECORDING ENGINEER Rule Out COVID-19 07/18/2021 07/18/2021 07/20/2021 1:56 PM RECORDING ENGINEER COVID-19 07/18/2021 07/18/2021 08/08/2021 11:3 9 PM RECORDING ENGINEER Rule Out COVID-19 12/18/2021 12/18/2021 12/19/2021 11:34 AM CDT Rule Out COVID-19 02/24/2022 02/24/2022 02/25/2022 1:08 PM CDT Rule Out COVID-19 04/26/2022 04/26/2022 04/26/2022 6:47 AM CDT Rule Out COVID-19 05/17/2022 05/17/2022 05/17/2022 10:20 PM RECORDING ENGINEER Rule Out COVID-19 06/09/2022 06/09/2022 06/09/2022 9:35 AM RECORDING ENGINEER COVID-19 06/09/2022 06/09/2022 06/30/2022 11:4 1 PM RECORDING ENGINEER Rule Out COVID-19 11/10/2022 11/10/2022 11/11/2022 12:17 PM CDT Rule Out COVID-19 03/07/2023 03/07/2023 03/07/2023 1:20 PM CDT Rule Out COVID-19 12/26/2023 12/26/2023 12/26/2023 9:50 AM CDT Rule Out COVID-19 04/09/2024 04/09/2024 04/10/2024 6:48 PM CDT Assessment Noted Time PHQ-9 Depression Total Score: 9 06/04/20 10:35 AM RECORDING ENGINEER documented as of this encounter Care Teams Hay Sorter Relationship Specialty Start Date End Date Marija Edgar APRN OFFSET PRESS OPERATOR [address] [place] [address] PCP - General Nurse Practitioner 04/30/20 04/14/23 Esha Grimm PA-C [address] [place] [phone] PCP - General Family Medicine 05/04/23 Lita Oseguera Personal Advocate & Liaison (PAL) 02/28/20 03/27/23 Rakesh Cid PA-C [address] [place] [address] Assigned PCP 03/02/20 06/07/20 Chanelle Mccann APRN [place] [address] [address] Assigned OBGYN Provider 05/02/2005/09 Lesley Moody Community Health Worker 05/30/2005/12 Kyara De La Fuente, RN Specialty Thread Separator Neurology 06/04/20 03/05/21 Marija Edgar APRN OFFSET PRESS OPERATOR [address] [place] [address] Assigned PCP 06/08/20 04/29/23 Mynor Broussard MD [address] [place] [address] Assigned Surgical Provider 06/01/20 11/28/21 Keisha Dotson MD [address] [place], [place] 4860[address] Assigned Neuroscience Provider 06/04/20 04/01/23 Mary Mejia Financial Resource Worker 08/07/20 08/21/20 Stacey Briones, [facility] Lead Thread Separator Primary Care - CC 08/11/2012/30 Lesley Moody, [...] [facility] [address] [place] [address] Pharmacist Pharmacist 04/17/21 Rain Galaviz PA-C [address] [place] [address] [place] [address] Physician Inner Layer Scrubber Tender Dermatology 04/28/21 Summer Lara MD [address] [place] [address] Assigned OBGYN Provider 05/10/2105/23 Summer Lara MD [address] [place] [address] Assigned OBGYN Provider 05/31/21 Summer Lara MD [address] [place] [address] 748344 Assigned OBGYN Provider 05/24/2105/30 Tavia Wyatt MD [address] [place] [address] [phone] Dermatology 07/14/21 Johnny Murillo MD [facility] [address] [place] [address] Assigned Musculoskeletal Provider 08/30/21 03/17/22 Erica Farrell APRN OFFSET PRESS OPERATOR [address] [id number] [place] [address] Nurse Practitioner Cardiovascular Disease 09/09/21 Teresita Bean [facility] [address] [facility] [place] [address] Pharmacist Pharmacist 09/24/21 09/29/21 Tavia Wyatt MD [address] [place] [address] Assigned Surgical Provider 11/29/21 05/07/22 Diana Desir [facility] [address] [place] [address] Assigned MTM Pharmacist 01/02/22 Rich Barrett MD [address] [address] Physician Ophthalmology 01/21/22 Neil Kent MD [address] [place] [address] Dermatology 02/24/22 Roney Story DPM [address] [facility] [address] [place] [address] Assigned Musculoskeletal Provider 03/20/22 08/13/22 Erica Farrell APRN OFFSET PRESS OPERATOR [address] [place] [address] Assigned Heart and Vascular Provider 04/03/22 04/16/22 Diana Desir [facility] [address] [place] [address] Assigned MTM Pharmacist 04/07/22 Jelena David OD [address] [facility] [place] [address] Assigned Surgical Provider 05/08/22 10/08/22 Galo Burrell MD Assigned Heart and Vascular Provider 04/17/22 06/11/22 Livan Sharif MD [address] [place] 8[address] Cardiovascular Disease 05/14/22 Livan Sharif MD [address] [place] [address]415 Assigned Heart and Vascular Provider 06/12/22 07/23/22 Catherine Cm MD [address] [facility] [address] [place] [address] Cardiovascular Disease 07/21/22 Valery Veronica, PA-C [address] [place], [place] 5[address] Physician Inner Layer Scrubber Tender Dermatology 07/21/22 Catherine Cm MD [address] [place] 688175 Assigned Heart and Vascular Provider 07/24/22 11/05/22 Johnny Murillo MD [facility] [address] [place] [address] 277144 Assigned Musculoskeletal Provider 08/14/22 10/08/22 Brea Quinn APRN OFFSET PRESS OPERATOR [address] [place] [address] Nurse Practitioner Dermatology 09/21/22 Brea Quinn APRN OFFSET PRESS OPERATOR [address] [place] [address] Assigned Surgical Provider 10/09/22 05/01/24 [place] [address] [address] Assigned Musculoskeletal Provider 10/09/22 05/01/24 Livan Sharif MD [address] [facility] [address] [place] [address] Assigned Heart and Vascular Provider 11/06/22 11/12/22 Catherine Cm MD [address] [facility] [address] [place] [address] Assigned Heart and Vascular Provider 11/13/22 05/27/23 Sydnie Martinez RN Personal Advocate & Liaison (PAL) Family Medicine 03/28/23 07/31/23 Alfonso Renteria MD [address] [facility] [address] [place], [place] [address] Assigned Neuroscience Provider 04/02/23 Cheng Todd PA-C [address] [place] [address] [phone] Assigned PCP 04/30/23 07/15/23 Armani Radha ARLENE Stovall OFFSET PRESS OPERATOR [address] [facility] [address] [place], [place] 329395 Assigned Heart and Vascular Provider 05/28/23 Jelena David OD [address] [facility] [address] [place] [id number] MD Ophthalmology 06/15/23 Pao Joseph, VJ Personal Advocate & Liaison (PAL) Nurse 08/01/23 11/07/23 Esha Grimm PA-C [address] [place] [phone] Assigned PCP 07/16/23 Valery Veronica PA-C [address] [place] [address] [id number] Physician Inner Layer Scrubber Tender Dermatology 09/19/23 Rey Tay MD [address] [place] [address] 532155 Gastroenterology 09/20/23 Rocky Zepeda DO [address] [place] [address] 88[address] Physician Gastroenterology 09/20/23 Philip Dumont MD [address] [place] [address] 859235 Physician Ophthalmology 09/22/23 Meredith Carrera PA-C [address] [place] [address] 167315 Assigned Gastroenterology Provider 11/01/23 Neil Kent MD [address] [address] Dermatology 11/02/23 [place] [address] [address] [facility] [place] [address] Neurological Surgery 12/26/23 Audrey Waite PA-C [address] [place] [address] Physician Inner Layer Scrubber Tender Dermatology 02/28/24 Valery Veronica PA-C 918602 [address], [place] [address] Physician Inner Layer Scrubber Tender Dermatology 04/10/24 Herminia Hathc MD [facility]5 [place], [place] [id number] Assigned Rheumatology Provider 07/02/24 documented as of this encounter
--- OUTSIDE RECORDS SUMMARY | 2024-07-22 22:49 | XMS_ITS | Encounter Summary ---
Author Organization [facility] Address [address] [place] [address] Care Team Providers Care Nursery Helper Name Role Phone Lita Oseguera Unavailable Unavailable Marija Edgar APRN SALES EXHIBITOR Primary Care Provider + Chanelle Mccann [employer] CNM Unavailab le Kyara De La Fuente RN Unavailable [phone] Marija Edgar APRN SALES EXHIBITOR Unavailable Mynor Broussard MD Unavailable [phone] Keisha Dotson MD Unavailable [phone] Mary Mejia Unavailable Unavailable Stacey Briones LICENSED PSYCHOLOGIST MANAGER Unavailable [phone] Lesley Moody CHW Unavailable Mary Mejia Unavailable Unavailable Lita Oseguera Unavailable Unavailable Galo Burrell MD Unavailable Unavailable Cristina Wood Unavailable Lesley Moody CHW Unavailable Meredith Bedoya Unavailable Unavailable Cristina Wood Unavailable Diana Desir [facility] Unavailable [phone] Ruhland, Rain Lena PA-C Unavailable Summer Lara MD Unavailable [phone] Summer Lara MD Unavailable [phone] Summer Lara MD Unavailable [phone] Tavia Wyatt MD Unavailable [phone] Johnny Murillo MD Unavailable +1- Erica Farrell [employer] SALES EXHIBITOR Unavailable VikasTeresita H Unavailable Tavia Wyatt MD Unavailable [phone] Diana Desir [facility] Unavailable [phone] Rich Barrett MD Unavailable Neil Kent MD Unavailable Roney Story [facility] Unavailable Erica Farrell APRN SALES EXHIBITOR Unavailable Diana Desir [facility] Unavailable [phone] Jelena David OD Unavailable Galo Burrell MD Unavailable Unavailable Livan Sharif MD Unavailable Livan Sharif MD Unavailable + Catherine Cm MD Unavailable + Valery Veronica PA-C Unavailable [phone] Catherine Cm MD Unavailable + Johnny Murillo MD Unavailable +1- Brea Quinn [employer] SALES EXHIBITOR Unavailable [phone] Brea Quinn [employer] SALES EXHIBITOR Unavailable [phone] Jose Francisco Johnson MD Unavailable Livan Sharif MD Unavailable Catherine Cm MD Unavailable + Sydnie Martinez RN Unavailable Unavailable Alfonso Renteria MD Unavailable [phone] Esha Grimm PA-C Primary Care Provider [phone] Cheng Todd PA-C Unavailable Radha Lomeli APRN SALES EXHIBITOR Unavailable FrankieJelena OD Unavailable [phone] Pao Joseph RN Unavailable Unavailable Esha Grimm PA-C Unavailable [phone] Valery Veronica PA-C Unavailable Rey Tay MD Unavailable Rocky Zepeda DO Unavailable Philip Dumont MD Unavailable Meredith Carrera PA-C Unavailable Neil Kent MD Unavailable Juan Pablo Emmanuel MD Unavailable [phone] Audrey Waite PA-C Unavailable [phone] JeremíasValery damon PA-C Unavailable Herminia Hatch MD Unavailable Encounter Details Date Type Department Care Team (Late st Contact Info) Description 08/01/2020 MyC Medical Advice [facility] [id number] [place] [phone] Marija Edgar APRN SALES EXHIBITOR [address] [place] [address] Social History Tobacco Use Types Packs/Day [...] PM CDT Legal Sex Female 4:13 AM CHIEF ACCOUNTANT Gender Identity Female 03/02/2021 5:45 PM CDT Sexual Orientation Straight 02/28/2020 12 :51 AM CDT COVID-19 Exposure Response Date Recorded In the last month, have you been in contact with someone who was confirmed or suspected to have Coronavirus / COVID-19? No / Unsure 07/30/2020 4:53 PM CHIEF ACCOUNTANT documented as of this encounter Miscellaneous Notes * Telephone Encounter - Estephania Black RN - 08/01/2020 9:11 AM CHIEF ACCOUNTANT Schedule patient for Zio Patch. Detailed message left on phone and through [employer]. Estephania Black RN Flex F ACCOUNTANT * Telephone Encounter - Marija Edgar APRN CNP - 08/01/2020 8:46 AM CHIEF ACCOUNTANT Please help patient schedule her zio patch. This order has been in place since 05/2020 and a new order was placed this week. F ACCOUNTANT documented in this encounter Plan of Treatment Upcoming Encounters Date Type Department Care Team (Late st Contact Info) Description 10/23/2024 9:30 AM CDT Office Visit [facility] - [address], [address] [place] [address] [place] [address] [place] [address] Johnny Penn MD [address] [place] [address] 11/28/2024 7:45 AM CDT Virtual Visit [facility] [address] [place] [address] Meredith Carrera PA-C [address] [place] [address] documented as of this encounter Visit Diagnoses Not on filedocumented in this encounter Additional Health Concerns Infection Onset Date Last Indicated Resolved Time Rule Out COVID-19 08/30/2020 08/30/2020 08/30/2020 5:05 PM CHIEF ACCOUNTANT Rule Out COVID-19 09/24/2020 09/24/2020 09/24/2020 9:24 AM CDT Rule Out COVID-19 11/05/2020 11/05/2020 11/06/2020 1:09 PM CDT Rule Out COVID-19 05/11/2021 05/11/2021 05/13/2021 10:18 AM CDT Rule Out COVID-19 07/13/2021 07/13/2021 07/14/2021 3:04 PM CHIEF ACCOUNTANT Rule Out COVID-19 07/18/2021 07/18/2021 07/20/2021 1:56 PM CHIEF ACCOUNTANT COVID-19 07/18/2021 07/18/2021 08/08/2021 11:3 9 PM CHIEF ACCOUNTANT Rule Out COVID-19 12/18/2021 12/18/2021 12/19/2021 11:34 AM CDT Rule Out COVID-19 02/24/2022 02/24/2022 02/25/2022 1:08 PM CDT Rule Out COVID-19 04/26/2022 04/26/2022 04/26/2022 6:47 AM CDT Rule Out COVID-19 05/17/2022 05/17/2022 05/17/2022 10:20 PM CHIEF ACCOUNTANT Rule Out COVID-19 06/09/2022 06/09/2022 06/09/2022 9:35 AM CHIEF ACCOUNTANT COVID-19 06/09/2022 06/09/2022 06/30/2022 11:4 1 PM CHIEF ACCOUNTANT Rule Out COVID-19 11/10/2022 11/10/2022 11/11/2022 12:17 PM CDT Rule Out COVID-19 03/07/2023 03/07/2023 03/07/2023 1:20 PM CDT Rule Out COVID-19 12/26/2023 12/26/2023 12/26/2023 9:50 AM CDT Rule Out COVID-19 04/09/2024 04/09/2024 04/10/2024 6:48 PM CDT Assessment Noted Time PHQ-9 Depression Total Score: 9 06/25/20 7:04 AM CHIEF ACCOUNTANT documented as of this encounter Care Teams Nursery Helper Relationship Specialty Start Date End Date Marija Edgar APRN SALES EXHIBITOR PCP - General Nurse Practitioner 04/30/20 04/14/23 Esha Grimm PA-C [address] [place] [phone] PCP - General Family Medicine 05/04/23 Lita Oseguera Personal Advocate & Liaison (PAL) 02/28/20 03/27/23 Chanelle Mccann APRN CNM [address] [address] [address] [place] [address] Assigned OBGYN Provider 05/02/2005/09 Kyara De La Fuente, RN Specialty Motor Teacher Neurology 06/04/20 03/05/21 Marija Edgar APRN SALES EXHIBITOR Assigned PCP 06/08/20 04/29/23 Mynor Broussard MD [address] [facility] 500 [place] [address] Assigned Surgical Provider 06/01/20 11/28/21 Keisha Dotson MD [address] [place] [address] Assigned Neuroscience Provider 06/04/20 04/01/23 Mary Mejia Financial Resource Worker 08/07/20 08/21/20 Stacey Briones, [facility] Lead Motor Teacher Primary Care - CC 08/11/2012/30 Lesley Moody, [facility] Community Health Worker 08/11/2010/01 Mary Mejia Financial Resource Worker 09/02/20 10/06/20 Lita Oseguera Personal Advocate & Liaison (PAL) Family Medicine 09/10/20 09/21/20 Galo Burrell MD Assigned Heart and Vascular Provider 10/05/20 04/02/22 Cristina Wood Financial Resource Worker 10/07/20 10/14/20 Lesley Moody, [facility] Community Health Worker 10/23/2012/30 Meredith Bedoya Financial Resource Worker 10/23/20 11/23/20 Cristina Wood Financial Resource Worker 02/09/21 02/09/21 Diana Desir, [facility] [address] [place] [address] Pharmacist Pharmacist 04/17/21 Rain Galaviz PA-C [address] [place] [address] [place] [phone] [employer] Counter Person Dermatology 04/28/21 Summer Lara MD [address] [place] [address] [phone] Assigned OBGYN Provider 05/10/2105/23 Summer Lara MD [address] [place] [address] [phone] Assigned OBGYN Provider 05/31/21 Summer Lara MD [address] [place] [address] [phone] Assigned OBGYN Provider 05/24/2105/30 Tavia Wyatt MD [address] [place] [address] [phone] Dermatology 07/14/21 Johnny Murillo MD [facility] [facility] [address] [place], [place] 0070[address] Assigned Musculoskeletal Provider 08/30/21 03/17/22 Erica Farrell APRN SALES EXHIBITOR [address] [facility] [address] [place] [address] Nurse Practitioner Cardiovascular Disease 09/09/21 Teresita Bean [facility] [address] [phone] Pharmacist Pharmacist 09/24/21 09/29/21 Tavia Wyatt MD [address] [place], [place] [phone] Assigned Surgical Provider 11/29/21 05/07/22 Diana Desir, [facility] [address] [place] [address] Assigned MTM Pharmacist 01/02/22 Rich Barrett MD [address] [phone] Physician Ophthalmology 01/21/22 Neil Kent MD [address] [place], [place] 5[address]65 Dermatology 02/24/22 Roney Story DPM [address] [facility] [address] [place], [place] 9637[address] Assigned Musculoskeletal Provider 03/20/22 08/13/22 Erica Farrell APRN SALES EXHIBITOR [address] [place] [address] Assigned Heart and Vascular Provider 04/03/22 04/16/22 Diana Desir, [facility] [address] [place] [address] Assigned MTM Pharmacist 04/07/22 Jelena David OD [address] [facility] [place] [address] Assigned Surgical Provider 05/08/22 10/08/22 Galo Burrell MD Assigned Heart and Vascular Provider 04/17/22 06/11/22 Livan Sharif MD [address] [place] [address] Cardiovascular Disease 05/14/22 Livan Sharif MD [address] [place] [address] [place] [address] Assigned Heart and Vascular Provider 06/12/22 07/23/22 Catherine Cm MD [address] [place] [address] Cardiovascular Disease 07/21/22 Valery Veronica, PA-C [address] [place] [address] 200455 [employer] Counter Person Dermatology 07/21/22 Catherine Cm MD [address] [place] [address] Assigned Heart and Vascular Provider 07/24/22 11/05/22 Johnny Murillo MD [facility] 200394 Assigned Musculoskeletal Provider 08/14/22 10/08/22 Brea Quinn APRN SALES EXHIBITOR [address] [place] [address] [phone] Nurse Practitioner Dermatology 09/21/22 Brea Quinn APRN SALES EXHIBITOR [address] [place] [address] [place] [phone] Assigned Surgical Provider 10/09/22 05/01/24 [place] [address] [place] [address] Assigned Musculoskeletal Provider 10/09/22 05/01/24 Livan Sharif MD [address] [place] [address] Assigned Heart and Vascular Provider 11/06/22 11/12/22 Catherine Cm MD [address] [place] [address] Assigned Heart and Vascular Provider 11/13/22 05/27/23 Sydnie Martinez RN Personal Advocate & Liaison (PAL) Family Medicine 03/28/23 07/31/23 Alfonso Renteria MD [address] [facility] 200 [place], [place] 805[address] Assigned Neuroscience Provider 04/02/23 Cheng Todd PA-C [address] [place] [address] [phone] Assigned PCP 04/30/23 07/15/23 Radha Lomeli, [employer] SALES EXHIBITOR [address] [place] [address] Assigned Heart and Vascular Provider 05/28/23 Jelena David OD [address] [facility] [place] [address] Ophthalmology 06/15/23 Pao Joseph, VJ Personal Advocate & Liaison (PAL) Nurse 08/01/23 11/07/23 Esha Grimm PA-C [address] [place] [phone] Assigned PCP 07/16/23 Valery Veronica PA-C [address] [place] [address] [phone] [employer] Counter Person Dermatology 09/19/23 Rey Tay MD [address] [place] [address] [phone] MD Gastroenterology 09/20/23 Rocky Zepeda DO [address] [place] [address] [phone] Physician Gastroenterology 09/20/23 Philip Dumont MD [address] [place] [address] 095815 Physician Ophthalmology 09/22/23 Meredith Carrera PA-C [address] [place] [address] 354505 Assigned Gastroenterology Provider 11/01/23 Neil Kent MD [address] [address] Dermatology 11/02/23 [place] [address] [place] [address] Neurological Surgery 12/26/23 Audrey Waite PA-C [address] [place] [address] [employer] Counter Person Dermatology 02/28/24 Valery Veronica PA-C [id number] [place] [address] [employer] Counter Person Dermatology 04/10/24 Herminia Hatch MD [address] [place] [address] Assigned Rheumatology Provider 07/02/24 documented as of this encounter
--- OUTSIDE RECORDS SUMMARY | 2024-07-22 22:50 | XMS_ITS | Encounter Summary ---
Author Organization [facility] Address [address] [place] [address] Care Team Providers Care Novelty Dipper Name Role Phone Rakesh Cid PA-C Unavailable [phone] Rakesh Cid PA-C Primary Care Provider [phone] Lita Oseguera Unavailable Unavailable Rakesh Cid PA-C Unavailable [phone] Isaura Lamar RN Unavailable Unavailable Lita Oseguera Unavailable Unavailable Marija Edgar APRN CLEANING MACHINE OPERATOR Primary Care Provider + Chanelle Mccann APRN CN Unavailab le Lesley Moody CHW Unavailable [phone] Kyara De La Fuente RN Unavailable Marija Edgar APRN CLEANING MACHINE OPERATOR Unavailable Mynor Broussard MD Unavailable [phone] Keisha Dotson MD Unavailable Mary Mejia Unavailable Unavailable Stacey Briones DIGITAL DESIGNER Unavailable [phone] Lesley Moody CHW Unavailable Mary Mejia Unavailable Unavailable Lita Oseguera Unavailable Unavailable Galo Burrell MD Unavailable Unavailable Cristina Wood Unavailable Lesley Moody [facility] Unavailable Meredith Bedoya Unavailable Unavailable Cristina Wood Unavailable Thang Diana [place] [facility] Unavailable [phone] Rain GalavizC Unavailable Summer Lara MD Unavailable [phone] Summer Lara MD Unavailable [phone] Summer Lara MD Unavailable [phone] Tavia Wyatt MD Unavailable [phone] Johnny Murillo MD Unavailable Erica Farrell APRN CLEANING MACHINE OPERATOR Unavailable Teresita Bean [facility] Unavailable Tavia Wyatt MD Unavailable [phone] Diana Desir [facility] Unavailable [phone] Rich Barrett MD Unavailable [phone] Neil Kent MD Unavailable Roney Story DPM Unavailable Erica Farrell CAKE ICER CLEANING MACHINE OPERATOR Unavailable + Diana Desir [facility] Unavailable [phone] Jelena David OD Unavailable Galo Burrell MD Unavailable Unavailable Livan Sharif MD Unavailable + Livan Sharif MD Unavailable + Catherine Cm MD Unavailable + Valery VeronicaC Unavailable [phone] Catherine Cm MD Unavailable + Johnny Murillo MD Unavailable [phone] Brea Quinn CAKE ICER CLEANING MACHINE OPERATOR Unavailable [phone] Brea Quinn CAKE ICER CLEANING MACHINE OPERATOR Unavailable [phone] Jose Francisco Johnson MD Unavailable Livan Sharif MD Unavailable Catherine Cm MD Unavailable + Sydnie Martinez RN Unavailable Unavailable Alfonso Renteria MD Unavailable Esha Grimm PA-C Primary Care Provider Cheng Todd PA-C Unavailable Radha Lomeli CAKE ICER CLEANING MACHINE OPERATOR Unavailable [phone] Jelena David OD Unavailable [phone] Pao Joseph RN Unavailable Unavailable Esha Grimm PA-C Unavailable [phone] Valery Veronica PA-C Unavailable Rey Tay MD Unavailable Rocky Zepeda DO Unavailable Philip Dumont MD Unavailable Meredith Carrera PA-C Unavailable Neil Kent MD Unavailable Juan Pablo Emmanuel MD Unavailable Audrey Waite PA-C Unavailable Valery Veronica PA-C Unavailable [phone] Herminia Hatch MD Unavailable Reason for Visit * Reason Onset Date Comments Appointment 02/13/2020 Anxiety Encounter Details Date Type Department Care Team (Late st Contact Info) Description 02/13/2020 MyC Medical Advice [address] [address] Rakesh Cid PA-C [address] [place] [address] Appointment (Anxiety) Social History Tobacco Use Types [...] PM CDT Legal Sex Female 4:13 AM SCREW MACHINE TENDER Gender Identity Female 03/02/2021 5:45 PM CDT Sexual Orientation Straight 02/28/2020 12 :51 AM CDT documented as of this encounter Miscellaneous Notes * Telephone Encounter - Agatha Forrester RN - 02/15/2020 2:28 PM CDT [employer] message sent to patient to schedule a [...] 9:30 AM CDT Office Visit [facility] [address], [address] [place] [address] [place] [address] [place], [place] [address] Johnny Penn MD [address] [place] [id number] 11/28/2024 7:45 AM CDT Virtual Visit [facility] [address] 4th [place] [phone] Meredith Carrera PA-C [address] [place] [phone] documented as of this encounter Visit Diagnoses Not on filedocumented in this encounter Additional Health Concerns Infection Onset Date Last Indicated Resolved Time Rule Out COVID-19 07/30/2020 07/30/2020 07/30/2020 7:11 PM SCREW MACHINE TENDER Rule Out COVID-19 08/30/2020 08/30/2020 08/30/2020 5:05 PM SCREW MACHINE TENDER Rule Out COVID-19 09/24/2020 09/24/2020 09/24/2020 9:24 AM CDT Rule Out COVID-19 11/05/2020 11/05/2020 11/06/2020 1:09 PM CDT Rule Out COVID-19 05/11/2021 05/11/2021 05/13/2021 10:18 AM CDT Rule Out COVID-19 07/13/2021 07/13/2021 07/14/2021 3:04 PM SCREW MACHINE TENDER Rule Out COVID-19 07/18/2021 07/18/2021 07/20/2021 1:56 PM SCREW MACHINE TENDER COVID-19 07/18/2021 07/18/2021 08/08/2021 11:3 9 PM SCREW MACHINE TENDER Rule Out COVID-19 12/18/2021 12/18/2021 12/19/2021 11:34 AM CDT Rule Out COVID-19 02/24/2022 02/24/2022 02/25/2022 1:08 PM CDT Rule Out COVID-19 04/26/2022 04/26/2022 04/26/2022 6:47 AM CDT Rule Out COVID-19 05/17/2022 05/17/2022 05/17/2022 10:20 PM SCREW MACHINE TENDER Rule Out COVID-19 06/09/2022 06/09/2022 06/09/2022 9:35 AM SCREW MACHINE TENDER COVID-19 06/09/2022 06/09/2022 06/30/2022 11:4 1 PM SCREW MACHINE TENDER Rule Out COVID-19 11/10/2022 11/10/2022 11/11/2022 12:17 PM CDT Rule Out COVID-19 03/07/2023 03/07/2023 03/07/2023 1:20 PM CDT Rule Out COVID-19 12/26/2023 12/26/2023 12/26/2023 9:50 AM CDT Rule Out COVID-19 04/09/2024 04/09/2024 04/10/2024 6:48 PM CDT Assessment Noted Time PHQ-9 Depression Total Score: 1 09/11/19 20 1:42 PM SCREW MACHINE TENDER documented as of this encounter Care Teams Novelty Dipper Relationship Specialty Start Date End Date Rakesh Cid PA-C [address] [facility] [address] PCP - General Physician Frame Trimmer - Medical 05/14/19 04/29/20 Marija Edgar APRN CNP PCP - General Nurse Practitioner 04/30/20 04/14/23 Esha Grimm PA-C [address] [place] [phone] PCP - General Family Medicine 05/04/23 Rakesh Cid PA-C [address] [place] [address] Assigned PCP 05/06/19 03/01/20 Lita Oseguera Personal Advocate & Liaison (PAL) 02/28/20 03/27/23 Rakesh Cid PA-C [address] [place] [address] Assigned PCP 03/02/20 06/07/20 Isaura Lamar RN Personal Advocate & Liaison (PAL) Family Practice 04/03/20 04/06/20 Lita Oseguera Personal Advocate & Liaison (PAL) 04/07/20 04/29/20 [place] [address] [facility] [address] [place], [place] 2440[address] Assigned OBGYN Provider 05/02/2005/09 Lesley Moody, W Community Health Worker 05/30/2005/12 Kyara De La Fuente, RN Specialty Firearms Inspector Neurology 06/04/20 03/05/21 Marija Edgar APRN CLEANING MACHINE OPERATOR Assigned PCP 06/08/20 04/29/23 Mynor Broussard MD [address] [facility] 500 [place] [address] Assigned Surgical Provider 06/01/20 11/28/21 Keisha Dotson MD [address] [place] [address] Assigned Neuroscience Provider 06/04/20 04/01/23 Aditi Mejiandra Financial Resource Worker 08/07/20 08/21/20 Stacey Briones, [facility] Lead Firearms Inspector Primary Care - CC 08/11/2012/30 Lesley [...] Diana Desir, [facility] [address] [place] [address] Pharmacist Pharmacist 04/17/21 Rain Galaviz PA-C [address] [place] [address] [address] [facility] [place] [phone] Physician Frame Trimmer Dermatology 04/28/21 Summer Lara MD [address], [place] [phone] Assigned OBGYN Provider 05/10/2105/23 Summer Lara MD [address] [place] [address] [phone] Assigned OBGYN Provider 05/31/21 2 Summer Lara MD [address] [place] [address] Assigned OBGYN Provider 05/24/2105/30 Tavia Wyatt MD [address] [place] [address] Dermatology 07/14/21 Johnny Murillo MD [facility] [address] [place] [address] Assigned Musculoskeletal Provider 08/30/21 03/17/22 Erica Farrell APRN CLEANING MACHINE OPERATOR [address] [facility] [address] [place] [address] Nurse Practitioner Cardiovascular Disease 09/09/21 Teresita Bean [facility] [address] [place] [address] Pharmacist Pharmacist 09/24/21 09/29/21 Tavia Wyatt MD [address] [place] [address] Assigned Surgical Provider 11/29/21 05/07/22 Diana Desir, [facility] [address] [place] [address] Assigned MTM Pharmacist 01/02/22 Rich Barrett MD [address] [address] Physician Ophthalmology 01/21/22 Neil Kent MD [address] [place] [address] Dermatology 02/24/22 Roney Story DPM [address] [facility] [address] [place] [address] Assigned Musculoskeletal Provider 03/20/22 08/13/22 Erica Farrell APRN CLEANING MACHINE OPERATOR [address] [place] [address] Assigned Heart and Vascular Provider 04/03/22 04/16/22 Diana Desir, [facility] [address] [place] [address] Assigned MTM Pharmacist 04/07/22 [place] David [place] [address] [facility] [place] [address] Assigned Surgical Provider 05/08/22 10/08/22 Galo Burrell MD Assigned Heart and Vascular Provider 04/17/22 06/11/22 Livan Sharif MD [address] , [facility] [address] [place] [address] Cardiovascular Disease 05/14/22 Livan Sharif MD [address], [facility] [place] [address] Assigned Heart and Vascular Provider 06/12/22 07/23/22 Catherine Cm MD [address] [facility]00 [place] [address] Cardiovascular Disease 07/21/22 Valery Veronica, PAUcheC [address] [place] [address] 171375 Physician Frame Trimmer Dermatology 07/21/22 Catherine Cm MD [address] [place] [address] [place] 12[address] Assigned Heart and Vascular Provider 07/24/22 11/05/22 Johnny Murillo MD [address] [place] [address] 994114 Assigned Musculoskeletal Provider 08/14/22 10/08/22 Brea Quinn APRN CLEANING MACHINE OPERATOR [address] [place] [address] [phone] Nurse Practitioner Dermatology 09/21/22 Brea Quinn APRN CLEANING MACHINE OPERATOR [address] [place] [address] ENMA DOE 095862 Assigned Surgical Provider 10/09/22 05/01/24 [place] [address] [place] [address] 456107 Assigned Musculoskeletal Provider 10/09/22 05/01/24 Livan Sharif MD [address], [facility] [address] [place] [address] Assigned Heart and Vascular Provider 11/06/22 11/12/22 Catherine Cm MD [address] [facility] [address] [place] [address] Assigned Heart and Vascular Provider 11/13/22 05/27/23 Sydnie Martinez, RN Personal Advocate & Liaison (PAL) Family Medicine 03/28/23 07/31/23 Alfonso Renteria MD [address] [facility] 200 [place] [address] Assigned Neuroscience Provider 04/02/23 Cheng Todd PA-C [address] [place] [address] [id number] Assigned PCP 04/30/23 07/15/23 Radha Lomeli, ARLENE CLEANING MACHINE OPERATOR [address] [place] [address] Assigned Heart and Vascular Provider 05/28/23 Jelena David OD [address] [facility] [place] [address] Ophthalmology 06/15/23 Pao Joseph, VJ Personal Advocate & Liaison (PAL) Nurse 08/01/23 11/07/23 Esha Grimm PAUcheC [address] [place] [address] Assigned PCP 07/16/23 Valery Veronica PA-C 9 [place] [address] Physician Frame Trimmer Dermatology 09/19/23 Rey Tay MD [address] [place], [place] 6816[address] MD Gastroenterology 09/20/23 Rocky Zepeda DO [address] [place] [address] 139365 Physician Gastroenterology 09/20/23 Philip Dumont MD [address] [place] [address] [phone] Physician Ophthalmology 09/22/23 Meredith Carrera PA-C [address] [place], [place] [address] Assigned Gastroenterology Provider 11/01/23 Neil Kent MD [address] [address] Dermatology 11/02/23 [place] [address] [address] [facility] [address] [place], [place] [address] Neurological Surgery 12/26/23 Audrey Waite PA-C [address] [place] [address] Physician Frame Trimmer Dermatology 02/28/24 Valery Veronica PA-C [address] [place] [address] Physician Frame Trimmer Dermatology 04/10/24 Herminia Hatch MD [address] [place] [address] Assigned Rheumatology Provider 07/02/24 documented as of this encounter
--- OUTSIDE RECORDS SUMMARY | 2024-07-22 22:50 | XMS_ITS | Encounter Summary ---
Author Organization [facility] Address [address] [place] [address] Care Team Providers Care Quality Assurance Intern Name Role Phone Rakesh Cid PA-C Unavailable [phone] Rakesh Cid PA-C Primary Care Provider [phone] Lita Oseguera Unavailable Unavailable Rakesh Cid PA-C Unavailable [phone] Isaura Lamar RN Unavailable Unavailable Lita Oseguera Unavailable Unavailable Mairja Edgar APRN ASSISTANT TO THE DIRECTOR Primary Care Provider + Chanelle Mccann APRN CN Unavailab le Lesley Moody CHW Unavailable [phone] Kyara De La Fuente RN Unavailable Marija Edgar APRN ASSISTANT TO THE DIRECTOR Unavailable Mynor Broussard MD Unavailable [phone] Keisha Dotson MD Unavailable [phone] Mary Mejia Unavailable Unavailable Stacey Briones PRODUCTION UTILITY WORKER Unavailable [phone] Lesley Moody CHW Unavailable Mary Mejia Unavailable Unavailable Lita Oseguera Unavailable Unavailable Galo Burrell MD Unavailable Unavailable Cristina Wood Unavailable Lesley Moody [facility] Unavailable Meredith Bedoya Unavailable Unavailable Cristina Wood Unavailable Thang Diana [place] [facility] Unavailable [phone] Rain GalavizC Unavailable Summer Lara MD Unavailable [phone] Summer Lara MD Unavailable [phone] Summer Lara MD Unavailable [phone] Tavia Wyatt MD Unavailable [phone] Johnny Murillo MD Unavailable Erica Farrell APRN ASSISTANT TO THE DIRECTOR Unavailable Teresita Bean [facility] Unavailable Tavia Wyatt MD Unavailable [phone] Diana Desir [facility] Unavailable [phone] Rich Barrett MD Unavailable [phone] Neil Kent MD Unavailable Roney Story DPM Unavailable Erica Farrell FOOD EXPEDITOR ASSISTANT TO THE DIRECTOR Unavailable + Diana Desir [facility] Unavailable [phone] Jelena David OD Unavailable Galo Burrell MD Unavailable Unavailable Livan Sharif MD Unavailable + Livan Sharif MD Unavailable + Catherine Cm MD Unavailable + Valery VeronicaC Unavailable [phone] Catherine Cm MD Unavailable + Johnny Murillo MD Unavailable [phone] Brea Quinn FOOD EXPEDITOR ASSISTANT TO THE DIRECTOR Unavailable [phone] Brea Quinn FOOD EXPEDITOR ASSISTANT TO THE DIRECTOR Unavailable [phone] Jose Francisco Johnson MD Unavailable Livan Sharif MD Unavailable Catherine Cm MD Unavailable + Sydnie Martinez RN Unavailable Unavailable Alfonso Renteria MD Unavailable Esha Grimm PA-C Primary Care Provider Cheng Todd PA-C Unavailable Radha Lomeli FOOD EXPEDITOR ASSISTANT TO THE DIRECTOR Unavailable Jelena David OD Unavailable [phone] Pao Joseph RN Unavailable Unavailable Esha Grimm PA-C Unavailable [phone] Valery Veronica PA-C Unavailable [phone] Rey Tay MD Unavailable Rocky Zepeda DO Unavailable Philip Dumont MD Unavailable Meredith Carrera PA-C Unavailable Neil Kent MD Unavailable Juan Pablo Emmanuel MD Unavailable Audrey Waite PA-C Unavailable [phone] Valery Veronica PA-C Unavailable Herminia Hatch MD Unavailable Encounter Details Date Type Department Care Team (Late st Contact Info) Description 02/27/[address], [address] [place] [phone] Rakesh Cid PA-C [address] [place] [address] Social History Tobacco Use Types Packs/Day Years [...] CDT Legal Sex Female 4:13 AM COMMUNITY SERVICES COORDINATOR Gender Identity Female 03/02/2021 5:45 PM [...] message?: Yes at Home number on file [phone] (home) 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 Jeffrey 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 documented in 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 encounter Plan of Treatment Upcoming Encounters Date Type Department Care Team (Late st Contact Info) Description 10/23/2024 9:30 AM CDT Office Visit [facility] - [address], [address] [place] [address] [place] [address] [place] [address] Johnny Penn MD [address] [address] 11/28/2024 7:45 AM CDT Virtual Visit [facility] [address] [place] [phone] Meredith Carrera PA-C [address] [place] [phone] documented as of this encounter Visit Diagnoses Not on filedocumented in this encounter Additional Health Concerns Infection Onset Date Last Indicated Resolved Time Rule Out COVID-19 07/30/2020 07/30/2020 07/30/2020 7:11 PM COMMUNITY SERVICES COORDINATOR Rule Out COVID-19 08/30/2020 08/30/2020 08/30/2020 5:05 PM COMMUNITY SERVICES COORDINATOR Rule Out COVID-19 09/24/2020 09/24/2020 09/24/2020 9:24 AM CDT Rule Out COVID-19 11/05/2020 11/05/2020 11/06/2020 1:09 PM CDT Rule Out COVID-19 05/11/2021 05/11/2021 05/13/2021 10:18 AM CDT Rule Out COVID-19 07/13/2021 07/13/2021 07/14/2021 3:04 PM COMMUNITY SERVICES COORDINATOR Rule Out COVID-19 07/18/2021 07/18/2021 07/20/2021 1:56 PM COMMUNITY SERVICES COORDINATOR COVID-19 07/18/2021 07/18/2021 08/08/2021 11:3 9 PM COMMUNITY SERVICES COORDINATOR Rule Out COVID-19 12/18/2021 12/18/2021 12/19/2021 11:34 AM CDT Rule Out COVID-19 02/24/2022 02/24/2022 02/25/2022 1:08 PM CDT Rule Out COVID-19 04/26/2022 04/26/2022 04/26/2022 6:47 AM CDT Rule Out COVID-19 05/17/2022 05/17/2022 05/17/2022 10:20 PM COMMUNITY SERVICES COORDINATOR Rule Out COVID-19 06/09/2022 06/09/2022 06/09/2022 9:35 AM COMMUNITY SERVICES COORDINATOR COVID-19 06/09/2022 06/09/2022 06/30/2022 11:4 1 PM COMMUNITY SERVICES COORDINATOR Rule Out COVID-19 11/10/2022 11/10/2022 11/11/2022 12:17 PM CDT Rule Out COVID-19 03/07/2023 03/07/2023 03/07/2023 1:20 PM CDT Rule Out COVID-19 12/26/2023 12/26/2023 12/26/2023 9:50 AM CDT Rule Out COVID-19 04/09/2024 04/09/2024 04/10/2024 6:48 PM CDT Assessment Noted Time PHQ-9 Depression Total Score: 020 1:14 PM CDT documented as of this encounter Care Teams Quality Assurance Intern Relationship Specialty Start Date End Date Rakesh Cid PA-C [address] [address] PCP - General Physician Resource Analyst - Medical 05/14/19 04/29/20 Marija Edgar APRN CNP PCP - General Nurse Practitioner 04/30/20 04/14/23 Esha Grimm PA-C [address] [place] [phone] PCP - General Family Medicine 05/04/23 Rakesh Cid PA-C [address] [place] [address] Assigned PCP 05/06/19 03/01/20 Lita Oseguera Personal Advocate & Liaison (PAL) 02/28/20 03/27/23 Rakesh Cid PA-C [address] [facility] [place] [address] Assigned PCP 03/02/20 06/07/20 Isaura Lamar, RN Personal Advocate & Liaison (PAL) Family Practice 04/03/20 04/06/20 Lita Oseguera Personal Advocate & Liaison (PAL) 04/07/20 04/29/20 Chanelle Mccann APRN CNM [address] [place] [address] [address] [place] [address] Assigned OBGYN Provider 05/02/2005/09 Lesley Moody, [facility] Community Health Worker 05/30/2005/12 Kyara De La Fuente, RN Specialty Fur Dry Cleaner Hand Neurology 06/04/20 03/05/21 Marija Edgar APRN ASSISTANT TO THE DIRECTOR Assigned PCP 06/08/20 04/29/23 Mynor Broussard MD [address] [facility] 500 [place] [address] Assigned Surgical Provider 06/01/20 11/28/21 Keisha Dotson MD 9 [place] [address] Assigned Neuroscience Provider 06/04/20 04/01/23 Mary Mejia Financial Resource Worker 08/07/20 08/21/20 Stacey Briones, [facility] Lead Fur Dry Cleaner Hand Primary Care - CC 08/11/2012/30 Lesley Moody, [facility] Community Health Worker 08/11/2010/01 Mary Mejia Financial Resource Worker 09/02/20 10/06/20 Lita Oseguera Personal Advocate & Liaison (PAL) Family Medicine 09/10/20 09/21/20 Galo Burrell MD Assigned Heart and Vascular Provider 10/05/20 04/02/22 Cristina Wood Financial Resource Worker 10/07/20 10/14/20 Lesley Moody, [facility] Community Health Worker 10/23/2012/30 Meredith Bedoya Financial Resource Worker 10/23/20 11/23/20 Cristina Wood Financial Resource Worker 02/09/21 02/09/21 Diana Desir, [facility] [place], [place] [phone] Pharmacist Pharmacist 04/17/21 Rain Galaviz PA-C [address] [place] [address] [address] [place], [place] [phone] Physician Resource Analyst Dermatology 04/28/21 Summer Lara MD [address] [place] [address] Assigned OBGYN Provider 05/10/2105/23 Summer Lara MD [address] [place] [address] Assigned OBGYN Provider 05/31/21 2 Summer Lara MD [address] [facility] [address] [place], [place] [address] Assigned OBGYN Provider 05/24/2105/30 Tavia Wyatt MD [address] [place] [address] Dermatology 07/14/21 Johnny Murillo MD [address] [place], [place] [address] Assigned Musculoskeletal Provider 08/30/21 03/17/22 Erica Farrell APRN ASSISTANT TO THE DIRECTOR [address] [facility] [address] [place] [address] Nurse Practitioner Cardiovascular Disease 09/09/21 Teresita Bean [facility] [address] [place], [place] [phone] Pharmacist Pharmacist 09/24/21 09/29/21 Tavia Wyatt MD [address] [place] [address] Assigned Surgical Provider 11/29/21 05/07/22 Diana Desir, [facility] [address] [place] [address] Assigned MTM Pharmacist 01/02/22 Rich Barrett MD [address] [address] Physician Ophthalmology 01/21/22 Neil Kent MD 500 [place] [address] Dermatology 02/24/22 Roney Story DPM [address] [facility] [address] [place] [address] Assigned Musculoskeletal Provider 03/20/22 08/13/22 Erica Farrell APRN ASSISTANT TO THE DIRECTOR [address] [place] [address] Assigned Heart and Vascular Provider 04/03/22 04/16/22 [facility] [address] [place] [address] Assigned MTM Pharmacist 04/07/22 Jelena David OD [address] [place] [address] Assigned Surgical Provider 05/08/22 10/08/22 Galo Burrell MD Assigned Heart and Vascular Provider 04/17/22 06/11/22 Livan Sharif MD [address] [place] [address] Cardiovascular Disease 05/14/22 Livan Sharif MD [address] [place] [address] Assigned Heart and Vascular Provider 06/12/22 07/23/22 Catherine Cm MD [address] [place] [address] [address] [place] [address] Cardiovascular Disease 07/21/22 Valery Veronica, PAUcheC [address] [place] [address] Physician Resource Analyst Dermatology 07/21/22 Catherine Cm MD [address] [place] [address] [address] [place] [address] Assigned Heart and Vascular Provider 07/24/22 11/05/22 Johnny Murillo MD [address] [place] [address] Assigned Musculoskeletal Provider 08/14/22 10/08/22 Brea Quinn APRN ASSISTANT TO THE DIRECTOR [address] [place] [phone] Nurse Practitioner Dermatology 09/21/22 Brea Quinn APRN ASSISTANT TO THE DIRECTOR [address] [place] [address] [facility] [place] [address] Assigned Surgical Provider 10/09/22 05/01/24 [place] [address] [place] [address] [place] [address] Assigned Musculoskeletal Provider 10/09/22 05/01/24 Livan Sharif MD [address] [place] [address] [address] [id number] Assigned Heart and Vascular Provider 11/06/22 11/12/22 Catherine Cm MD [address] [place] [address] Assigned Heart and Vascular Provider 11/13/22 05/27/23 Sydnie Martinez RN Personal Advocate & Liaison (PAL) Family Medicine 03/28/23 07/31/23 Alfonso Renteria MD [address] [facility] [address] [place], [place] [address] Assigned Neuroscience Provider 04/02/23 Cheng Todd PA-C [address] [place] [phone] Assigned PCP 04/30/23 07/15/23 Radha Lomeli APRN ASSISTANT TO THE DIRECTOR [address] [place], [place] [address] Assigned Heart and Vascular Provider 05/28/23 Jelena David OD [address] [place] [address] Ophthalmology 06/15/23 Pao Joseph, VJ Personal Advocate & Liaison (PAL) Nurse 08/01/23 11/07/23 Esha Grimm PA-C [address] [place] [phone] Assigned PCP 07/16/23 Valery Veronica PA-C [address] [place] [address] Physician Resource Analyst Dermatology 09/19/23 Rey Tay MD [address] [place], [place] [address] MD Gastroenterology 09/20/23 Rocky Zepeda DO 500 [place] [address] Physician Gastroenterology 09/20/23 Philip Dumont MD 516 [place] [address] Physician Ophthalmology 09/22/23 Meredith Carrera PA-C 9 [place] [address] Assigned Gastroenterology Provider 11/01/23 Neil Kent MD [address] [place] [address] Dermatology 11/02/23 [place] [address] [place] [address] Neurological Surgery 12/26/23 Audrey Waite PA-C [address] [place] [address] Physician Resource Analyst Dermatology 02/28/24 Valery Veronica PA-C [address] [place] [address] Physician Resource Analyst Dermatology 04/10/24 Herminia Hatch MD [address] [place] [address] Assigned Rheumatology Provider 07/02/24 documented as of this encounter
--- OUTSIDE RECORDS SUMMARY | 2024-07-22 22:50 | XMS_ITS | Continuity of Care Document ---
Author Name [facility] User [facility] Address Unknown Organization Unknown Address Unknown Procedures FILTER APPLIED:Only known Procedures with Onset Date within the last 5 years Procedure Date Procedure Provider Additiona l Information Status ROUTINE VENIPUNCTURE (35363) Completed X-RAY EXAM CHEST 1 VIEW (59475) Completed EMERGENCY DEPT VISIT MOD MDM (32028) Completed EMERGENCY DEPT VISIT HI MDM (15207) Completed ELECTROCARDIOGRAM TRACING (10396) Completed METABOLIC PANEL TOTAL CA (10703) Completed FIBRIN DEGRADATION QUANT (13794) Completed COMPLETE CBC W/AUTO DIFF WBC (99203) Completed ASSAY OF LIPASE (46171) Completed HEPATIC FUNCTION PANEL (77054) Completed C-REACTIVE PROTEIN (08282) Completed VITAMIN E (20494) Comple maddie VITAMIN B6 (86892) Compl eted VITAMIN A (97233) Comple maddie EMERGENCY DEPT VISIT HI MDM (92628) Completed FIBRIN DEGRADATION QUANT (07212) Completed ASSAY OF TROPONIN QUANT (98380) Completed METABOLIC PANEL TOTAL [place] (04983) Completed X-RAY EXAM CHEST 1 VIEW (94788) Completed EMERGENCY DEPT VISIT MOD MDM (18212) Completed ELECTROCARDIOGRAM TRACING (28739) Completed COMPLETE CBC W/AUTO DIFF WBC (90053) Completed ROUTINE VENIPUNCTURE (18166) Completed [facility] ENDOSCOPY DIAG W OR W/O BRUSH/WASH (31822) Completed EMERGENCY DEPT VISIT LOW MDM (05053) Completed ELECTROCARDIOGRAM TRACING (78341) Completed Encounters FILTER APPLIED:Only known Encounters with Admission Date within the last 5 years Encounter Location Admission Discharge Billing Code Aircraft Body Repairer Karyna pace Emergency Dave [facility] Outpatient [facility] Outpatient [facility] Outpatient [facility] Emergency [facility] Outpatient [facility] Outpatient [facility] Emergency [facility] Emergency Dee Santos Outpatient [facility] Emergency Clement Allred Outpatient [facility] Out[facility] Outpatient [facility] Outpatient [facility] Outpatient [facility] Outpatient [facility] Outpatient [facility] Outpatient [facility] Outpatient [facility] Outpatient [facility] Outpatient [facility]
--- OUTSIDE RECORDS SUMMARY | 2024-07-22 22:50 | XMS_ITS | Encounter Summary ---
Author Organization [facility] Address [address] [place] [address] Care Team Providers Care Intervention Manager Name Role Phone Rakesh Cid PA-C Primary Care Provider Lita Oseguera Unavailable Unavailable Rakesh Cid PA-C Unavailable [phone] Lita Oseguera Unavailable Unavailable aMrija Edgar APRN RETAIL LOAN ORIGINATOR Primary Care Provider + Chanelle Mccann APRN CNM Unavailab le Lesley Moody CHW Unavailable Kyara De La Fuente RN Unavailable Marija Edgar APRN RETAIL LOAN ORIGINATOR Unavailable [phone] Mynor Broussard MD Unavailable Keisha Dotson MD Unavailable Mary Mejia Unavailable Unavailable Stacey Briones ELECTRONICS SPECIALIST Unavailable Lesley Moody CHW Unavailable Mary Mejia Unavailable Unavailable Lita Oseguera Unavailable Unavailable Galo Burrell MD Unavailable Unavailable Cristina Wood Unavailable Bettinger, Lesley C CHW Unavailable Meredith Bedoya Unavailable Unavailable Cristina Wood Unavailable Diana Desir [facility] Unavailable [phone] Rain Galaviz PA-C Unavailable Summer Lara MD Unavailable [phone] Summer Lara MD Unavailable +[phone] Summer Lara MD Unavailable +[phone] Tavia Wyatt MD Unavailable [phone] Johnny Murillo MD Unavailable +[phone]- Erica Farrell APRN RETAIL LOAN ORIGINATOR Unavailable + Teresita Bean [facility] Unavailable Tavia Wyatt MD Unavailable [phone] Diana Desir [facility] Unavailable [phone] Rich Barrett MD Unavailable [phone] Neil Kent MD Unavailable Roney Story DPM Unavailable [phone] Erica Farrell APRN RETAIL LOAN ORIGINATOR Unavailable Diana Desir [facility] Unavailable [phone] Jelena David OD Unavailable [phone] Galo Burrell MD Unavailable Unavailable Livan Sharif MD Unavailable + Livan Sharif MD Unavailable + Catherine Cm MD Unavailable + Valery Veronica PA-C Unavailable [phone] Catherine Cm MD Unavailable + Johnny Murillo MD Unavailable +1- Brea Quinn APRN RETAIL LOAN ORIGINATOR Unavailable [phone] Brea Quinn [employer] RETAIL LOAN ORIGINATOR Unavailable [phone] Jose Francisco Johnson MD Unavailable Livan Sharif MD Unavailable Catherine Cm MD Unavailable + Sydnie Martinez RN Unavailable Unavailable Alfonso Renteria MD Unavailable [phone] Esha Grimm PA-C Primary Care Provider [phone] Cheng Todd PA-C Unavailable [phone] Radha Lomeli [employer] RETAIL LOAN ORIGINATOR Unavailable Jelena David Radha OD Unavailable Pao Joseph RN Unavailable Unavailable Esha Grimm PA-C Unavailable [phone] Valery Veronica PA-C Unavailable Rey Tay MD Unavailable Rocky Zepeda DO Unavailable Philip Dumont MD Unavailable Meredith Carrera PA-C Unavailable Neil Kent MD Unavailable Juan Pablo Emmanuel MD Unavailable [phone] Audrey Waite PA-C Unavailable Valery Veronica PA-C Unavailable [phone] Herminia Hatch MD Unavailable Encounter Details Date Type Department Care Team (Late st Contact Info) Description 04/25/2020 [facility] [address] [address] Rakesh Cid PA-C [address] [place] [address] Social History Tobacco Use Types Packs/Day Years [...] PM CDT Legal Sex Female 4:13 AM FELT FINISHING SUPERVISOR Gender Identity Female 03/02/2021 5:45 PM [...] CDT Office Visit [facility] Neurology [address], [address] [place] [address] [place] [address] [place], [place] 74[address] Johnny Penn MD [address] [place] [address] 11/28/2024 7:45 AM CDT Virtual Visit [facility] [address] [place] [address] Meredith Carrera PA-C [address] [place] [address] 109615 documented as of this encounter Visit Diagnoses Not on filedocumented in this encounter Additional Health Concerns Infection Onset Date Last Indicated Resolved Time Rule Out COVID-19 07/30/2020 07/30/2020 07/30/2020 7:11 PM FELT FINISHING SUPERVISOR Rule Out COVID-19 08/30/2020 08/30/2020 08/30/2020 5:05 PM FELT FINISHING SUPERVISOR Rule Out COVID-19 09/24/2020 09/24/2020 09/24/2020 9:24 AM CDT Rule Out COVID-19 11/05/2020 11/05/2020 11/06/2020 1:09 PM CDT Rule Out COVID-19 05/11/2021 05/11/2021 05/13/2021 10:18 AM CDT Rule Out COVID-19 07/13/2021 07/13/2021 07/14/2021 3:04 PM FELT FINISHING SUPERVISOR Rule Out COVID-19 07/18/2021 07/18/2021 07/20/2021 1:56 PM FELT FINISHING SUPERVISOR COVID-19 07/18/2021 07/18/2021 08/08/2021 11:3 9 PM FELT FINISHING SUPERVISOR Rule Out COVID-19 12/18/2021 12/18/2021 12/19/2021 11:34 AM CDT Rule Out COVID-19 02/24/2022 02/24/2022 02/25/2022 1:08 PM CDT Rule Out COVID-19 04/26/2022 04/26/2022 04/26/2022 6:47 AM CDT Rule Out COVID-19 05/17/2022 05/17/2022 05/17/2022 10:20 PM FELT FINISHING SUPERVISOR Rule Out COVID-19 06/09/2022 06/09/2022 06/09/2022 9:35 AM FELT FINISHING SUPERVISOR COVID-19 06/09/2022 06/09/2022 06/30/2022 11:4 1 PM FELT FINISHING SUPERVISOR Rule Out COVID-19 11/10/2022 11/10/2022 11/11/2022 12:17 PM CDT Rule Out COVID-19 03/07/2023 03/07/2023 03/07/2023 1:20 PM CDT Rule Out COVID-19 12/26/2023 12/26/202312/2512/26/2023 9:50 AM CDT Rule Out COVID-19 04/09/2024 04/09/2024 04/10/2024 6:48 PM CDT Assessment Noted Time PHQ-9 Depression Total Score: 12 020 2:40 PM CDT documented as of this encounter Care Teams Intervention Manager Relationship Specialty Start Date End Date Rakesh Cid PA-C PCP - General Physician Local Az Truck Driver - Medical 05/14/19 04/29/20 Marija Edgar APRN RETAIL LOAN ORIGINATOR [address] [place], [place] [phone] PCP - General Nurse Practitioner 04/30/20 04/14/23 Esha Grimm PA-C [address] [place] [phone] PCP - General Family Medicine 05/04/23 Lita Oseguera Personal Advocate & Liaison (PAL) 02/28/20 03/27/23 Rakesh Cid PA-C [address] [place] [address] Assigned PCP 03/02/20 06/07/20 Lita Oseguera Personal Advocate & Liaison (PAL) 04/07/20 04/29/20 Chanelle Mccann APRN CNM [address] [place] [address] 350737 Assigned OBGYN Provider 05/02/2005/09 Lesley Moody, CHW Community Health Worker 05/30/2005/12 Kyara De La Fuente, RN Specialty Air Grinder Neurology 06/04/20 03/05/21 Marija Edgar APRN RETAIL LOAN ORIGINATOR [address] [place] [address] Assigned PCP 06/08/20 04/29/23 Mynor Broussard MD [address] [address] Assigned Surgical Provider 06/01/20 11/28/21 Keisha Dotson MD 909 [place] [address] Assigned Neuroscience Provider 06/04/20 04/01/23 Mary Mejia Financial Resource Worker 08/07/20 08/21/20 Stacey Briones, [facility] Lead Air Grinder Primary Care - CC 08/11/2012/30 Lesley Moody, [facility] Community Health Worker 08/11/2010/01 Mary Mejia Financial Resource Worker 09/02/20 10/06/20 Lita Oseguera Personal Advocate & Liaison (PAL) Family Medicine 09/10/20 09/21/20 Galo Burrell MD Assigned Heart and Vascular Provider 10/05/20 04/02/22 Cristina Wood Financial Resource Worker 10/07/20 10/14/20 Lesley Moody, [facility] Community Health Worker 10/23/2012/30 Meredith Bedoya Financial Resource Worker 10/23/20 11/23/20 Cristina Wood Financial Resource Worker 02/09/21 02/09/21 Diana Desir, [facility] [address] [place] [address] Pharmacist Pharmacist 04/17/21 Rain Galaviz PA-C [address] [place] [address] [place] [address] Physician Local Az Truck Driver Dermatology 04/28/21 Summer Lara MD [address] [place] [address] Assigned OBGYN Provider 05/10/2105/23 Summer Lara MD [address] [place] [address] 213804 Assigned OBGYN Provider 05/31/21 Summer Lara MD [address] [place] [address] 090244 Assigned OBGYN Provider 05/24/2105/30 Tavia Wyatt MD [address] [place] [address] 549104 Dermatology 07/14/21 Johnny Murillo MD [address] [place] [address] Assigned Musculoskeletal Provider 08/30/21 03/17/22 Erica Farrell APRN RETAIL LOAN ORIGINATOR [address] [facility] [address] [place] [address] Nurse Practitioner Cardiovascular Disease 09/09/21 Teresita Bean [facility] [address] [place] [phone] Pharmacist Pharmacist 09/24/21 09/29/21 Tavia Wyatt MD [address] [place] [address] Assigned Surgical Provider 11/29/21 05/07/22 Diana Desir, [facility] [address] [place] [address] Assigned MTM Pharmacist 01/02/22 Rich Barrett MD [address] [phone] Physician Ophthalmology 01/21/22 Neil Kent MD 500 [place], [place] 622225 Dermatology 02/24/22 Roney Story DPM [address] [facility] [address] [place] [address] Assigned Musculoskeletal Provider 03/20/22 08/13/22 Erica Farrell APRN RETAIL LOAN ORIGINATOR 1700 [place] [address] Assigned Heart and Vascular Provider 04/03/22 04/16/22 Diana Desir, [facility] [address] [place] [address] Assigned MTM Pharmacist 04/07/22 Jelena David OD [address] [place] [address] Assigned Surgical Provider 05/08/22 10/08/22 Galo Burrell MD Assigned Heart and Vascular Provider 04/17/22 06/11/22 Livan Sharif MD [address] [place] [address] Cardiovascular Disease 05/14/22 Livan Sharif MD [address] [place] [address] Assigned Heart and Vascular Provider 06/12/22 07/23/22 Catherine Cm MD [address] [place] [address] Cardiovascular Disease 07/21/22 Valery Veronica, PA-C 909 [place] [address] Physician Local Az Truck Driver Dermatology 07/21/22 Catherine Cm MD [address] [place] [address] Assigned Heart and Vascular Provider 07/24/22 11/05/22 Johnny Murillo MD [address] [facility] [address] [place] [address] Assigned Musculoskeletal Provider 08/14/22 10/08/22 Brea Quinn APRN RETAIL LOAN ORIGINATOR [address] [place] [address] Nurse Practitioner Dermatology 09/21/22 Brea Quinn APRN RETAIL LOAN ORIGINATOR 6401 [facility] [place] [address] Assigned Surgical Provider 10/09/22 05/01/24 [place] [address] [address] [facility] [address] [place] [address] Assigned Musculoskeletal Provider 10/09/22 05/01/24 Livan Sharif MD [address] [facility] [address] [place] [address] Assigned Heart and Vascular Provider 11/06/22 11/12/22 Catherine Cm MD [address] [facility] [address] [place] [address] Assigned Heart and Vascular Provider 11/13/22 05/27/23 Sydnie Martinez RN Personal Advocate & Liaison (PAL) Family Medicine 03/28/23 07/31/23 Alfonso Renteria MD 5775 [facility] 200 [place] [address] Assigned Neuroscience Provider 04/02/23 Cheng Todd PA-C [address] [place] [address] Assigned PCP 04/30/23 07/15/23 Radha Lomeli APRN RETAIL LOAN ORIGINATOR [address] [place], [place] 7[address]85 Assigned Heart and Vascular Provider 05/28/23 Jelena David OD [address] [place] [address] MD Ophthalmology 06/15/23 Pao Joseph, VJ Personal Advocate & Liaison (PAL) Nurse 08/01/23 11/07/23 Esha Grimm PA-C [address] [place] [address] Assigned PCP 07/16/23 Valery Veronica PA-C [address] [place] [address] 863605 Physician Local Az Truck Driver Dermatology 09/19/23 Rey Tay MD [address] [place] [address] 672885 Gastroenterology 09/20/23 Rocky Zepeda DO [address] [place] [address] 898925 Physician Gastroenterology 09/20/23 Philip Dumont MD [address] [place] [address] 677215 Physician Ophthalmology 09/22/23 Meredith Carrera PA-C [address] [place] [address] Assigned Gastroenterology Provider 11/01/23 Neil Kent MD [address] [address] Dermatology 11/02/23 [place] [address] [place] [address] Neurological Surgery 12/26/23 Audrey [place] PA-C 500 [place] [address] Physician Local Az Truck Driver Dermatology 02/28/24 Valery Veronica PA-C 449104 [address], [place] [address] Physician Local Az Truck Driver Dermatology 04/10/24 Herminia Hatch MD [facility]5 [place] [address] Assigned Rheumatology Provider 07/02/24 documented as of this encounter
--- OUTSIDE RECORDS SUMMARY | 2024-07-22 22:50 | XMS_ITS | Encounter Summary ---
Author Organization [facility] Address [address] [place] [address] Care Team Providers Care Drier Helper Name Role Phone Rakesh Cid PA-C Primary Care Provider Lita Oseguera Unavailable Unavailable Rakesh Cid PA-C Unavailable [phone] Lita Oseguera Unavailable Unavailable Marija Edgar APRN CHILD CARE SITTER Primary Care Provider + Chanelle Mccann APRN CNM Unavailab le Lesley Moody CHW Unavailable Kyara De La Fuente RN Unavailable [phone] Marija Edgar APRN CHILD CARE SITTER Unavailable [phone] Mynor Broussard MD Unavailable [phone] Keisha Dotson MD Unavailable [phone] Mary Mejia Unavailable Unavailable Stacey Briones FISH FRYER Unavailable Lesley Moody CHW Unavailable Mary Mejia Unavailable Unavailable Lita Oseguera Unavailable Unavailable Galo Burrell MD Unavailable Unavailable Cristina Wood Unavailable Bettinger, Lesley C CHW Unavailable [phone] Meredith Bedoya Unavailable Unavailable Cristina Wood Unavailable Diana Desir [facility] Unavailable [phone] Rain Galaviz PA-C Unavailable Summer Lara MD Unavailable [phone] Summer Lara MD Unavailable +[phone] Summer Lara MD Unavailable [phone] Tavia Wyatt MD Unavailable [phone] Johnny Murillo MD Unavailable +1- Erica Farrell APRN CHILD CARE SITTER Unavailable + Teresita Bean [facility] Unavailable Tavia Wyatt MD Unavailable [phone] Diana Desir [facility] Unavailable [phone] Rich Barrett MD Unavailable [phone] Neil Kent MD Unavailable Roney Story DPM Unavailable [phone] Erica Farrell APRN CHILD CARE SITTER Unavailable Diana Desir [facility] Unavailable [phone] Jelena David OD Unavailable Galo Burrell MD Unavailable Unavailable Livan Sharif MD Unavailable + Livan Sharif MD Unavailable + Catherine Cm MD Unavailable + Valery Veronica PA-C Unavailable [phone] Catherine Cm MD Unavailable + Johnny Murillo MD Unavailable +1- Brea Quinn APRN CHILD CARE SITTER Unavailable [phone] Brea Quinn METAL ROOFING MECHANIC CHILD CARE SITTER Unavailable Jose Francisco Johnson MD Unavailable Livan Sharif MD Unavailable Catherine Cm MD Unavailable + Sydnie Martinez RN Unavailable Unavailable Alfonso Renteria MD Unavailable [phone] Esha Grimm PA-C Primary Care Provider Cheng Todd PA-C Unavailable [phone] Radha Lomeli METAL ROOFING MECHANIC CHILD CARE SITTER Unavailable Jelena David Radha OD Unavailable [phone] Pao Joseph RN Unavailable Unavailable Esha Grimm PA-C Unavailable [phone] Valery Veronica PA-C Unavailable [phone] Rey Tay MD Unavailable Rocky Zepeda DO Unavailable Philip Dumont MD Unavailable Meredith Carrera PA-C Unavailable [phone] Neil Kent MD Unavailable Juan Pablo Emmanuel MD Unavailable Audrey Waite PA-C Unavailable Valery Veronica PA-C Unavailable Herminia Hatch MD Unavailable Encounter Details Date Type Department Care Team (Late st Contact Info) Description 04/28/2020 [facility] [address] [address] Rakesh Cid PA-C [address] [place] [address] Social History Tobacco Use Types Packs/Day Years [...] PM CDT Legal Sex Female 4:13 AM GED INSTRUCTOR Gender Identity Female 03/02/2021 5:45 PM [...] Visit [facility] Neurology [address], [address] [place] [address] [place] [address] [place], [place] 8139[address] Johnny Penn MD [address] [place] [address] 11/28/2024 7:45 AM CDT Virtual Visit [facility] Gastroenterology Clinic [address] [place] [address] Meredith Carrera PA-C [address] [place] [address] [phone] documented as of this encounter Visit Diagnoses Not on filedocumented in this encounter Additional Health Concerns Infection Onset Date Last Indicated Resolved Time Rule Out COVID-19 07/30/2020 07/30/2020 07/30/2020 7:11 PM GED INSTRUCTOR Rule Out COVID-19 08/30/2020 08/30/2020 08/30/2020 5:05 PM GED INSTRUCTOR Rule Out COVID-19 09/24/2020 09/24/2020 09/24/2020 9:24 AM CDT Rule Out COVID-19 11/05/2020 11/05/2020 11/06/2020 1:09 PM CDT Rule Out COVID-19 05/11/2021 05/11/2021 05/13/2021 10:18 AM CDT Rule Out COVID-19 07/13/2021 07/13/2021 07/14/2021 3:04 PM GED INSTRUCTOR Rule Out COVID-19 07/18/2021 07/18/2021 07/20/2021 1:56 PM GED INSTRUCTOR COVID-19 07/18/2021 07/18/2021 08/08/2021 11:3 9 PM GED INSTRUCTOR Rule Out COVID-19 12/18/2021 12/18/2021 12/19/2021 11:34 AM CDT Rule Out COVID-19 02/24/2022 02/24/2022 02/25/2022 1:08 PM CDT Rule Out COVID-19 04/26/2022 04/26/2022 04/26/2022 6:47 AM CDT Rule Out COVID-19 05/17/2022 05/17/2022 05/17/2022 10:20 PM GED INSTRUCTOR Rule Out COVID-19 06/09/2022 06/09/2022 06/09/2022 9:35 AM GED INSTRUCTOR COVID-19 06/09/2022 06/09/2022 06/30/2022 11:4 1 PM GED INSTRUCTOR Rule Out COVID-19 11/10/2022 11/10/2022 11/11/2022 12:17 PM CDT Rule Out COVID-19 03/07/2023 03/07/2023 03/07/2023 1:20 PM CDT Rule Out COVID-19 12/26/2023 12/26/202312/2512/26/2023 9:50 AM CDT Rule Out COVID-19 04/09/2024 04/09/2024 04/10/2024 6:48 PM CDT Assessment Noted Time PHQ-9 Depression Total Score: 12 020 2:40 PM CDT documented as of this encounter Care Teams Drier Helper Relationship Specialty Start Date End Date Rakesh Cid PA-C PCP - General Physician Filter Assembler - Medical 05/14/19 04/29/20 Marija Edgar APRN CHILD CARE SITTER [address] [place], [place] [phone] PCP - General Nurse Practitioner 04/30/20 04/14/23 Esha Grimm PA-C [address] [place] [phone] PCP - General Family Medicine 05/04/23 Lita Oseguera Personal Advocate & Liaison (PAL) 02/28/20 03/27/23 Rakesh Cid PA-C [address] [place] [address] Assigned PCP 03/02/20 06/07/20 Lita Oseguera Personal Advocate & Liaison (PAL) 04/07/20 04/29/20 Chanelle Mccann APRN CNM [address] [place] [address] 912607 Assigned OBGYN Provider 05/02/2005/09 Lesley Moody, CHW Community Health Worker 05/30/2005/12 Kyara De La Fuente, RN Specialty Professor Of Business Administration Neurology 06/04/20 03/05/21 Marija Edgar APRN CHILD CARE SITTER [address] [place] [address] Assigned PCP 06/08/20 04/29/23 Mynor Broussard MD [address] [address] Assigned Surgical Provider 06/01/20 11/28/21 Keisha Dotson MD 909 [place] [address] Assigned Neuroscience Provider 06/04/20 04/01/23 Mary Mejia Financial Resource Worker 08/07/20 08/21/20 Staecy Briones, [facility] Lead Professor Of Business Administration Primary Care - CC 08/11/2012/30 Lesley Moody, [facility] Community Health Worker 08/11/2010/01 Mary Mejia [...] Desir, [facility] [address] [place] [address] Pharmacist Pharmacist 04/17/21 Rain Galaviz PA-C [address] [place] [address] [place] [address] Physician Filter Assembler Dermatology 04/28/21 Summer Lara MD [address] [place] [address] Assigned OBGYN Provider 05/10/2105/23 Summer Lara MD [address] [place] [address] 327214 Assigned OBGYN Provider 05/31/21 Summer Lara MD [address] [place] [address] 943974 Assigned OBGYN Provider 05/24/2105/30 Tavia Wyatt MD [address] [place] [address] 802974 Dermatology 07/14/21 Johnny Murillo MD [address] [place] [address] Assigned Musculoskeletal Provider 08/30/21 03/17/22 Erica Farrell APRN CHILD CARE SITTER [address] [facility] [address] [place] [address] Nurse Practitioner Cardiovascular Disease 09/09/21 Teresita Bean [facility] [address] [place] [phone] Pharmacist Pharmacist 09/24/21 09/29/21 Tavia Wyatt MD [address] [place] [address] Assigned Surgical Provider 11/29/21 05/07/22 Diana Desir, [facility] [address] [place] [address] Assigned MTM Pharmacist 01/02/22 Rich Barrett MD [address] 965605 Physician Ophthalmology 01/21/22 Neil Kent MD 500 [place], [place] 974435 Dermatology 02/24/22 Roney Story DPM [address] [facility] [address] [place] [address] Assigned Musculoskeletal Provider 03/20/22 08/13/22 Erica Farrell APRN CHILD CARE SITTER 1700 [place] [address] Assigned Heart and Vascular Provider 04/03/22 04/16/22 Diana Desir, [facility] [address] [place] [address] Assigned MTM Pharmacist 04/07/22 Jelena David OD [address] [facility] [place] [address] Assigned Surgical Provider 05/08/22 10/08/22 Galo Burrell MD Assigned Heart and Vascular Provider 04/17/22 06/11/22 Livan Sharif MD [address] [place] [address] Cardiovascular Disease 05/14/22 Livan Sharif MD [address] [place] [address] Assigned Heart and Vascular Provider 06/12/22 07/23/22 Catherine Cm MD [address] [place] [address] Cardiovascular Disease 07/21/22 Valery Veronica, PA-C 909 [place] [address] Physician Filter Assembler Dermatology 07/21/22 Catherine Cm MD [address] [place] [address] Assigned Heart and Vascular Provider 07/24/22 11/05/22 Johnny Murillo MD [address] [facility] [address] [place] [address] Assigned Musculoskeletal Provider 08/14/22 10/08/22 Brea Quinn APRN CHILD CARE SITTER 500 [place] [address] Nurse Practitioner Dermatology 09/21/22 Brea Quinn APRN CHILD CARE SITTER 64[address] [facility] [place] [address] Assigned Surgical Provider 10/09/22 05/01/24 [place] [address] [facility] 300 [place] [address] Assigned Musculoskeletal Provider 10/09/22 05/01/24 Livan Sharif MD [address] [facility] [address] [place] [address] Assigned Heart and Vascular Provider 11/06/22 11/12/22 Catherine Cm MD [address] [facility] [address] [place] [address] Assigned Heart and Vascular Provider 11/13/22 05/27/23 Sydnie Martinez RN Personal Advocate & Liaison (PAL) Family Medicine 03/28/23 07/31/23 Alfonso Renteria MD 5775 [facility] 200 [place] [address] Assigned Neuroscience Provider 04/02/23 Cheng Todd PA-C [address] [place] [address] Assigned PCP 04/30/23 07/15/23 Radha Lomeli APRN CHILD CARE SITTER [address] [place], [place] 18[address] Assigned Heart and Vascular Provider 05/28/23 Jelena David OD [address] [facility] [place] [address] MD Ophthalmology 06/15/23 Pao Joseph, VJ Personal Advocate & Liaison (PAL) Nurse 08/01/23 11/07/23 Esha Grimm PA-C [address] [place] [address] Assigned PCP 07/16/23 Valery Veronica PA-C [address] [place] [address] 975565 Physician Filter Assembler Dermatology 09/19/23 Rey Tay MD [address] [place] [address] 959695 Gastroenterology 09/20/23 Rocky Zepeda DO [address] [place] [address] 158965 Physician Gastroenterology 09/20/23 Philip Dumont MD [address] [place] [address] 792905 Physician Ophthalmology 09/22/23 Meredith Carrera PA-C [address] [place] [address] Assigned Gastroenterology Provider 11/01/23 Neil Kent MD [address] [address] Dermatology 11/02/23 [place] [address] [address] Neurological Surgery 12/26/23 Audrey Waite PA-C 500 [place] [address] Physician Filter Assembler Dermatology 02/28/24 Valery Veronica PA-C 563250 [place], [place] [address] Physician Filter Assembler Dermatology 04/10/24 Herminia Hatch MD [facility]5 [place] [address] Assigned Rheumatology Provider 07/02/24 documented as of this encounter
--- OUTSIDE RECORDS SUMMARY | 2024-07-22 22:50 | XMS_ITS | Encounter Summary ---
Author Organization [facility] Address [address] [place] [address] Care Team Providers Care Family Program Specialist Name Role Phone Lita Oseguera Unavailable Unavailable Rakesh Cid PA-C Unavailable Marija Edgar APRN PLATEN BUILDER UP Primary Care Provider + Chanelle Mccann AUTO ACCESSORIES INSTALLER CN Unavailab le Lesley Moody CHW Unavailable Kyara De La Fuente RN Unavailable [phone] Marija Edgar APRN [facility] Unavailable Mynor Broussard MD Unavailable [phone] Keisha Dotson MD Unavailable Mary Mejia Unavailable Unavailable Stacey Briones HEALTHCARE RECEPTIONIST Unavailable Lesley Moody CHW Unavailable Mary Mejia Unavailable Unavailable Lita Oseguera Unavailable Unavailable Galo Burrell MD Unavailable Unavailable Cristina Wood Unavailable Lesley Moody CHW Unavailable [phone] Meredith Bedoya Unavailable Unavailable Cristina Wood Unavailable Diana Desir [facility] Unavailable [phone] Rain Galaviz PA-C Unavailable Summer Lara MD Unavailable Summer Lara MD Unavailable [phone] Summer Lara MD Unavailable [phone] Tavia Wyatt MD Unavailable [phone] Johnny Murillo MD Unavailable +[phone] Erica Farrell APRN PLATEN BUILDER UP Unavailable + Teresita Bean [facility] Unavailable Tavia Wyatt MD Unavailable [phone] Diana Desir [facility] Unavailable [phone] Rich Barrett MD Unavailable [phone] Neil Kent MD Unavailable Roney Story DPM Unavailable Erica Farrell APRN PLATEN BUILDER UP Unavailable + Diana Desir [facility] Unavailable [phone] FrankieJelena OD Unavailable Galo Burrell MD Unavailable Unavailable Livan Sharif MD Unavailable + Livan Sharif MD Unavailable + Catherine Cm MD Unavailable + Valery Veronica PA-C Unavailable [phone] Catherine Cm MD Unavailable + Johnny Murillo MD Unavailable +[phone]- Brea Quinn APRN PLATEN BUILDER UP Unavailable [phone] [place], Brea P AUTO ACCESSORIES INSTALLER PLATEN BUILDER UP Unavailable [phone] Jose Francisco Johnson MD Unavailable Livan Sharif MD Unavailable Catherine Cm MD Unavailable + Sydnie Martinez RN Unavailable Unavailable Alfonso Renteria MD Unavailable [phone] Esha Grimm PA-C Primary Care Provider Cheng Todd PA-C Unavailable LomeliRadha AUTO ACCESSORIES INSTALLER PLATEN BUILDER UP Unavailable Jelena David OD Unavailable Pao Joseph RN Unavailable Unavailable Esha Grimm PA-C Unavailable [phone] Valery Veronica PA-C Unavailable Rey Tay MD Unavailable Rocky Zepeda DO Unavailable Philip Dumont MD Unavailable [phone] Meredith Carrera PA-C Unavailable Neil Kent MD Unavailable Juan Pablo Emmanuel MD Unavailable Audrey Waite PA-C Unavailable Valery Veronica PA-C Unavailable Herminia Hatch MD Unavailable Encounter Details Date Type Department Care Team (Late st Contact Info) Description 05/16/[address] 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 FARM LABORER documented as of this encounter Plan of Treatment Upcoming Encounters Date Type Department Care Team (Late st Contact Info) Description 10/23/2024 9:30 AM CDT Office Visit [facility] Neurology [address], [address] [place] [phone] [place] [address] [place] [address] 128317 Johnny Penn MD 6651 [place], [place] [address] 11/28/2024 7:45 AM CDT Virtual Visit [facility] [address] [address] Meredith Carrera PA-C [address] [place] [address] 298525 documented as of this encounter Visit Diagnoses Not on filedocumented in this encounter Additional Health Concerns Infection Onset Date Last Indicated Resolved Time Rule Out COVID-19 07/30/2020 07/30/2020 07/30/2020 7:11 PM GRASS FARM LABORER Rule Out COVID-19 08/30/2020 08/30/2020 08/30/2020 5:05 PM GRASS FARM LABORER Rule Out COVID-19 09/24/2020 09/24/2020 09/24/2020 9:24 AM CDT Rule Out COVID-19 11/05/2020 11/05/2020 11/06/2020 1:09 PM CDT Rule Out COVID-19 05/11/2021 05/11/2021 05/13/2021 10:18 AM CDT Rule Out COVID-19 07/13/2021 07/13/2021 07/14/2021 3:04 PM GRASS FARM LABORER Rule Out COVID-19 07/18/2021 07/18/2021 07/20/2021 1:56 PM GRASS FARM LABORER COVID-19 07/18/2021 07/18/2021 08/08/2021 11:3 9 PM GRASS FARM LABORER Rule Out COVID-19 12/18/2021 12/18/2021 12/19/2021 11:34 AM CDT Rule Out COVID-19 02/24/2022 02/24/2022 02/25/2022 1:08 PM CDT Rule Out COVID-19 04/26/2022 04/26/2022 04/26/2022 6:47 AM CDT Rule Out COVID-19 05/17/2022 05/17/2022 05/17/2022 10:20 PM GRASS FARM LABORER Rule Out COVID-19 06/09/2022 06/09/2022 06/09/2022 9:35 AM GRASS FARM LABORER COVID-19 06/09/2022 06/09/2022 06/30/2022 11:4 1 PM GRASS FARM LABORER Rule Out COVID-19 11/10/2022 11/10/2022 11/11/2022 12:17 PM CDT Rule Out COVID-19 03/07/2023 03/07/2023 03/07/2023 1:20 PM CDT Rule Out COVID-19 12/26/2023 12/26/2023 12/26/2023 9:50 AM CDT Rule Out COVID-19 04/09/2024 04/09/2024 04/10/2024 6:48 PM CDT Assessment Noted Time PHQ-9 Depression Total Score: 12 020 2:40 PM CDT documented as of this encounter Care Teams Family Program Specialist Relationship Specialty Start Date End Date Marija Edgar [place] [address] [place] [address] PCP - General Nurse Practitioner 04/30/20 04/14/23 Esha Grimm PA-C [address] [place] [phone] PCP - General Family Medicine 05/04/23 Lita Oseguera Personal Advocate & Liaison (PAL) 02/28/20 03/27/23 Rakesh Cid PA-C [address] [place], [place] [address] Assigned PCP 03/02/20 06/07/20 [place] [address] [address] [facility] [address] [place], [place] 88[address] Assigned OBGYN Provider 05/02/2005/09 Lesley Moody, CHW Community Health Worker 05/30/2005/12 Kyara De La Fuente, RN Specialty Service Delivery Director Neurology 06/04/20 03/05/21 Marija Edgar [place] [address] [place] [address] Assigned PCP 06/08/20 04/29/23 Mynor Broussard MD 6[address] [facility] 500 [place] [address] Assigned Surgical Provider 06/01/20 11/28/21 Keisha Dotson MD 909 [place] [address] Assigned Neuroscience Provider 06/04/20 04/01/23 Mary Mejia Financial Resource Worker 08/07/20 08/21/20 Stacey Briones, [facility] Lead Service Delivery Director Primary Care - CC 08/11/2012/30 Lesley Moody, [facility] Community Health Worker 08/11/2010/01 Mary Mejia Financial Resource Worker 09/02/20 10/06/20 Lita Oseguera Personal Advocate & Liaison (PAL) Family Medicine 09/10/20 09/21/20 Galo Burrell MD Assigned Heart and Vascular Provider 10/05/20 04/02/22 Cristina Wood Financial Resource Worker 10/07/20 10/14/20 Lesley Moody, [facility] Community Health Worker 10/23/2012/30 Meredith Bedoya Financial Resource Worker 10/23/20 11/23/20 Cristina Wood Financial Resource Worker 02/09/21 02/09/21 Diana Desir, [facility]3 [place] [address] Pharmacist Pharmacist 04/17/21 Rain Galaviz PA-C [address] [place] [address] [address] [facility] [address] Physician Minor League Baseball Player Dermatology 04/28/21 Summer Lara MD [address] [place] [address] Assigned OBGYN Provider 05/10/2105/23 Summer Lara MD [address] [place] [address] Assigned OBGYN Provider 05/31/21 2 Summer Lara MD [address] [place] [address] Assigned OBGYN Provider 05/24/2105/30 Tavia Wyatt MD [address] [place] [address] Dermatology 07/14/21 Johnny Murillo MD [address] [facility] [address] [place] [address] Assigned Musculoskeletal Provider 08/30/21 03/17/22 Erica Farrell APRN PLATEN BUILDER UP [address] [facility] [address] [place] 5[address]285 Nurse Practitioner Cardiovascular Disease 09/09/21 Teresita Bean [facility] [address] [place] [address] Pharmacist Pharmacist 09/24/21 09/29/21 Tavia Wyatt MD [address] [place] [address] Assigned Surgical Provider 11/29/21 05/07/22 [facility] 3033 [place] [address] Assigned MTM Pharmacist 01/02/22 Rich Barrett MD [address] [facility] [address] [place], [place] 8[address] Physician Ophthalmology 01/21/22 Neil Kent MD 500 [place], [place] 461685 Dermatology 02/24/22 [place] [address] [facility] [address] [place], [place] 907[address] Assigned Musculoskeletal Provider 03/20/22 08/13/22 Erica Farrell APRN PLATEN BUILDER UP 1700 [place] [address] Assigned Heart and Vascular Provider 04/03/22 04/16/22 [facility] 3033 [place] [address] Assigned MTM Pharmacist 04/07/22 [place] [address] [facility] [place] [address] Assigned Surgical Provider 05/08/22 10/08/22 Galo Burrell MD Assigned Heart and Vascular Provider 04/17/22 06/11/22 Livan Sharif MD 64[address] [facility] [place] , [facility] [address] [place] [id number] Cardiovascular Disease 05/14/22 Livan Sharif MD [address] 8[address] [place] [address] Assigned Heart and Vascular Provider 06/12/22 07/23/22 Catherine Cm MD [address] [place] [place] [address] [place] [address] Cardiovascular Disease 07/21/22 Valery Veronica, PA-C [address] [place] [address] 143665 Physician Minor League Baseball Player Dermatology 07/21/22 Catherine Cm MD [address] [place] [address] Assigned Heart and Vascular Provider 07/24/22 11/05/22 Johnny Murillo MD [address] [place] [address] 919244 Assigned Musculoskeletal Provider 08/14/22 10/08/22 Brea Quinn APRN PLATEN BUILDER UP [address] [place] [address] Nurse Practitioner Dermatology 09/21/22 Brea Quinn [place] [address] [place] [address] [place] [address] Assigned Surgical Provider 10/09/22 05/01/24 [place] [address] [place] [address] Assigned Musculoskeletal Provider 10/09/22 05/01/24 Livan Sharif MD [address], [facility] [address] [place] [address] Assigned Heart and Vascular Provider 11/06/22 11/12/22 Catherine Cm MD [address] [facility] [address] [place] [address] Assigned Heart and Vascular Provider 11/13/22 05/27/23 Sydnie Martinez RN Personal Advocate & Liaison (PAL) Family Medicine 03/28/23 07/31/23 Alfonso Renteria MD [address] [facility] 200 [place] [address] Assigned Neuroscience Provider 04/02/23 Cheng Todd PA-C [address] [place] [address] Assigned PCP 04/30/23 07/15/23 Radha Lomeli, ARLENE PLATEN BUILDER UP [address] [place] [address] Assigned Heart and Vascular Provider 05/28/23 Jelena David OD [facility]5 [facility] [place] [address] Ophthalmology 06/15/23 Pao Joseph, VJ Personal Advocate & Liaison (PAL) Nurse 08/01/23 11/07/23 Esha Grimm PAUcheC [address] [place] [address] Assigned PCP 07/16/23 Valery Veronica PA-C [address] [place] [address] Physician Minor League Baseball Player Dermatology 09/19/23 Rey Tay MD [address] [place] [address] MD Gastroenterology 09/20/23 Rocky Zepeda DO [address] [place] [address] 793265 Physician Gastroenterology 09/20/23 Philip Dumont MD [address] [place] [address] Physician Ophthalmology 09/22/23 Meredith Carrera PA-C [address] [place] [address] Assigned Gastroenterology Provider 11/01/23 Neil Kent MD [address] [address] Dermatology 11/02/23 [place] [address] [place], [place] [address] Neurological Surgery 12/26/23 Audrey Waite PA-C [address] [place] [address] 616675 Physician Minor League Baseball Player Dermatology 02/28/24 Valery Veronica PA-C [address] [place] [address] Physician Minor League Baseball Player Dermatology 04/10/24 Herminia Hatch MD [address] [place] [address] Assigned Rheumatology Provider 07/02/24 documented as of this encounter
[2024-07-22 23:00] VITALS: BP 120/74; PULSE 70; RESP 18; TEMP 36.8; O2SAT 98
[2024-07-22 23:00] LABS: HCG Qualitative Serum* Negative (Negative)
[2024-07-23 00:54] VITALS: BP 118/70; PULSE 78; RESP 18; TEMP 36.8; O2SAT 98
[2024-07-23 00:55] VITALS: BP 118/70; PULSE 78; RESP 18; TEMP 36.8
== END 2024-07-23 00:56 | disposition home or self-care (01) ==
PROVIDERS: Emergency Provider Emergency Medicine
DX: R07.9 Chest pain, unspecified (principal); R00.2 Palpitations
CPT/HCPCS: 36415; 80048; 84484; 84703; 85025; 93005; 94761; 99283; 99284

== ENCOUNTER 2024-08-28 18:16 | Emergency (ER) | payer MEDICAID, SELFPAY ==
[2024-08-28 18:19] VITALS: BP 110/65; PULSE 76; RESP 18; TEMP 36.8; O2SAT 98; BMI 32.3
--- OUTSIDE RECORDS SUMMARY | 2024-08-28 18:19 | XMS_ITS | Encounter Summary ---
Author Organization [facility] Address [address] [place] [address] Care Team Providers Care Loan Services Professional Name Role Phone Diana Desir [facility] Unavailable Rain Galaviz PA-C Unavailable Tavia Wyatt MD Unavailable Erica Farrell APRN ROTARY ADJUSTER Unavailable Rich Barrett MD Unavailable [phone] Neil Kent MD Unavailable Diana Desir [facility] Unavailable Livan Sharif MD Unavailable Catherine Cm MD Unavailable + Valery Veronica PA-C Unavailable Brea Quinn MULCHER OPERATOR ROTARY ADJUSTER Unavailable Brea Quinn MULCHER OPERATOR ROTARY ADJUSTER Unavailable Jose Francisco Johnson MD Unavailable Alfonso Renteria MD Unavailable [phone] Esha Grimm PA-C Primary Care Provider Lomeli, Radha E MULCHER OPERATOR ROTARY ADJUSTER Unavailable [phone] Jelena David OD Unavailable Esha Grimm PA-C Unavailable [phone] Valery Veronica PA-C Unavailable Rey Tay MD Unavailable Rocky Zepeda DO Unavailable Philip Dumont MD Unavailable [phone] Meredith Carrera PA-C Unavailable [phone] Neil Kent MD Unavailable Juan Pablo Emmanuel MD Unavailable Audrey Waite PA-C Unavailable [phone] Valery Veronica PA-C Unavailable Herminia Hatch MD Unavailable Encounter Details Date Type Department Care Team (Late st Contact Info) Description 04/24/2024 [facility] Heart [facility] [address] [facility] [address] [place] [address] Radha Lomeli, MULCHER OPERATOR ROTARY ADJUSTER [address] [place], [place] [address] Social History Tobacco Use Types Packs/Day Years [...] week 03/28/2024 How often do you attend [facility]? 1 to 4 times [...] exercise at this level? 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 documented in this encounter Plan of Treatment Upcoming Encounters Date Type Department Care Team (Late st Contact Info) Description 10/23/2024 9:30 AM CDT Office Visit [facility] - [address], [address] [place] [address] [place] [address] [place], [place] 58[address] Johnny Penn MD [address] [place] 3838[address] documented as of this encounter Visit Diagnoses Not on filedocumented in this encounter Additional Health Concerns Assessment Noted Time PHQ-9 Depression Total Score: 3 02/07/20 24 9:33 AM CDT documented as of this encounter Care Teams Loan Services Professional Relationship Specialty Start Date End Date Esha Grimm PA-C [address] [place] [phone] PCP - General Family Medicine 05/04/23 [facility] [address] [place], [place] 5[address] Pharmacist Pharmacist 04/17/21 Rain Galaviz PA-C [address] [place] [address] [address] [place] [address] Physician Fleet Manager Dermatology 04/28/21 Tavia Wyatt MD [address] [place] [address] [address] [place] [address] Dermatology 07/14/21 Erica Farrell APRN ROTARY ADJUSTER [address] [place] [address] Nurse Practitioner Cardiovascular Disease 09/09/21 Rich Barrett MD [address] [address] Physician Ophthalmology 01/21/22 Neil Kent MD 500 [place], [place] 6[address] Dermatology 02/24/22 Diana Desir, [facility] [address] [place] [address] Assigned MTM Pharmacist 04/07/22 Livan Sharif MD [address] [place] 72[address] Cardiovascular Disease 05/14/22 Catherine Cm MD [address] [facility] [place] [address] Cardiovascular Disease 07/21/22 Valery Veronica, PA-C 909 [place], [place] [address] Physician Fleet Manager Dermatology 07/21/22 Brea Quinn APRN ROTARY ADJUSTER 500 [place] [address] Nurse Practitioner Dermatology 09/21/22 Brea Quinn APRN ROTARY ADJUSTER [address] [facility] [place] [address] Assigned Surgical Provider 10/09/22 05/01/24 [place] [address] [place] [address] Assigned Musculoskeletal Provider 10/09/22 05/01/24 Alfonso Renteria MD [address] [facility] [address] 200 [place] [address] Assigned Neuroscience Provider 04/02/23 Radha Lomeli APRN ROTARY ADJUSTER 6[address] [facility] [address] [place] [address] Assigned Heart and Vascular Provider 05/28/23 Jelena David OD [address] [place] [address] Ophthalmology 06/15/23 Esha Grimm PA-C [address] [place] [address] Assigned PCP 07/16/23 Valery Veronica PA-C [address] [place] [address] 718505 Physician Fleet Manager Dermatology 09/19/23 Rey Tay MD 9 [place], [place] 4[address] Gastroenterology 09/20/23 Rocky Zepeda DO [address] [place] [address] 073035 Physician Gastroenterology 09/20/23 Philip Dumont MD [address] [place] [address] 132235 Physician Ophthalmology 09/22/23 Meredith Carrera PA-C 909 [place] [address] Assigned Gastroenterology Provider 11/01/23 Neil Kent MD [address] [place] [address] Dermatology 11/02/23 [place] [address] [address] Neurological Surgery 12/26/23 Audrey Waite PA-C 500 [place] [address] Physician Fleet Manager Dermatology 02/28/24 Valery Veronica PA-C [address] [place] [address] Physician Fleet Manager Dermatology 04/10/24 Herminia Hatch MD [facility]5 [place] [address] Assigned Rheumatology Provider 07/02/24 documented as of this encounter
--- OUTSIDE RECORDS SUMMARY | 2024-08-28 18:20 | XMS_ITS | Encounter Summary ---
Author Organization [place] Address [address] [place] [address] Care Team Providers Care Program Research Specialist Name Role Phone Lita Oseguera Unavailable Unavailable Marija Edgar APRN FLIGHT INFORMATION EXPEDITER Primary Care Provider + Marija Edgar APRN FLIGHT INFORMATION EXPEDITER Unavailable [phone] Keisha Dotson MD Unavailable Diana Desir [facility] Unavailable [phone] Rain Galaviz PA-C Unavailable Tavia Wyatt MD Unavailable Erica Farrell APRN FLIGHT INFORMATION EXPEDITER Unavailable Tavia Wyatt MD Unavailable [phone] Rich Barrett MD Unavailable [phone] Neil Kent MD Unavailable Roney Story DPM Unavailable Diana Desir [facility] Unavailable Jelena David OD Unavailable Galo Burrell MD Unavailable Unavailable Livan Sharif MD Unavailable Livan Sharif MD Unavailable Catherine Cm MD Unavailable + Valery Veronica PA-C Unavailable Catherine Cm MD Unavailable + Johnny Murillo MD Unavailable [phone] Brea Quinn INVESTIGATOR NARCOTICS FLIGHT INFORMATION EXPEDITER Unavailable [phone] Brea Quinn INVESTIGATOR NARCOTICS FLIGHT INFORMATION EXPEDITER Unavailable [phone] Jose Francisco Johnson MD Unavailable Livan Sharif MD Unavailable Catherine Cm MD Unavailable + Sydnie Martinez RN Unavailable Unavailable Alfonso Renteria MD Unavailable [phone] Esha Grimm PA-C Primary Care Provider Cheng Todd PA-C Unavailable Radha Lomeli INVESTIGATOR NARCOTICS FLIGHT INFORMATION EXPEDITER Unavailable Jelena David OD Unavailable Pao Joseph RN Unavailable Unavailable Esha Grimm PA-C Unavailable [phone] Valery Veronica PA-C Unavailable [phone] Rey Tay MD Unavailable Rocky Zepeda DO Unavailable Philip Dumont MD Unavailable Meredith Carrera PA-C Unavailable Neil Kent MD Unavailable Juan Pablo Emmanuel MD Unavailable Audrey Waite PA-C Unavailable Valery Veronica PA-C Unavailable Herminia Hatch MD [facility] Encounter Details Date Type Department Care Team (Late st Contact Info) Description 04/20/2022 MyC Medical Advice [facility] Heart [address] [place] [phone] Margaret Rendon, RN Social History Tobacco Use [...] How often do you attend synagogue or muslim serv ices? Never 09/22/2021 Do [...] Answer Date Recorded PHQ-2 Score 2 12/18/2021 [facility] - [...] in a mcfp (including now)? No 09/22/2021 [place] Depression Scale Answer Date Recorded [place] [...] CDT Legal Sex Female 4:13 AM CHIEF INFORMATION SECURITY OFFICER Gender Identity Female 03/02/2021 5:45 [...] [facility] Neurology [address], [address] [place] [address] [place] [address] [address] [place] [address] Johnny Penn MD 0969 [place] [id number] documented as of this encounter Visit Diagnoses Not on filedocumented in this encounter Additional Health Concerns Infection Onset Date Last Indicated Resolved Time Rule Out COVID-19 04/26/2022 04/26/2022 04/26/2022 6:47 AM CDT Rule Out COVID-19 05/17/2022 05/17/2022 05/17/2022 10:20 PM CHIEF INFORMATION SECURITY OFFICER Rule Out COVID-19 06/09/2022 06/09/2022 06/09/2022 9:35 AM CHIEF INFORMATION SECURITY OFFICER COVID-19 06/09/2022 06/09/2022 06/30/2022 11:4 1 PM CHIEF INFORMATION SECURITY OFFICER Rule Out COVID-19 11/10/2022 11/10/2022 11/11/2022 12:17 PM CDT Rule Out COVID-19 03/07/2023 03/07/2023 03/07/2023 1:20 PM CDT Rule Out COVID-19 12/26/2023 12/26/2023 12/26/2023 9:50 AM CDT Rule Out COVID-19 04/09/2024 04/09/2024 04/10/2024 6:48 PM CDT Assessment Noted Time PHQ-9 Depression Total Score: 2 12/19/19 2:50 PM CDT documented as of this encounter Care Teams Program Research Specialist Relationship Specialty Start Date End Date Marija Edgar APRN FLIGHT INFORMATION EXPEDITER PCP - General Nurse Practitioner 04/30/20 04/14/23 Esha Grimm PA-C [address] [place] [phone] PCP - General Family Medicine 05/04/23 Lita Oseguera Personal Advocate & Liaison (PAL) 02/28/20 03/27/23 Marija Edgar APRN FLIGHT INFORMATION EXPEDITER Assigned PCP 06/08/20 04/29/23 Keisha Dotson MD 909 [place], [place] [phone] Assigned Neuroscience Provider 06/04/20 04/01/23 Diana Desir [facility] 3033 [place], [place] [phone] Pharmacist Pharmacist 04/17/21 Rain Galaviz PA-C [address] [place] [address] [place] [address] Physician Slider Assembler Dermatology 04/28/21 Tavia Wyatt MD [address] [place] [address] [place] [address] Dermatology 07/14/21 Erica Farrell APRN FLIGHT INFORMATION EXPEDITER [address] [place] [id number] [place] [address] Nurse Practitioner Cardiovascular Disease 09/09/21 Tavia Wyatt MD [address] [place] [address] Assigned Surgical Provider 11/29/21 05/07/22 Rich Barrett MD 516 [facility] [address] [place], [place] [address] Physician Ophthalmology 01/21/22 Neil Kent MD 500 [place] [address] Dermatology 02/24/22 Roney Story DPM [address] [facility] [address] [place] [address] Assigned Musculoskeletal Provider 03/20/22 08/13/22 Diana Desir, [facility] [address] [place] [address] Assigned MTM Pharmacist 04/07/22 Jelena David OD [address] [facility] [place] [address] Assigned Surgical Provider 05/08/22 10/08/22 Galo Burrell MD Assigned Heart and Vascular Provider 04/17/22 06/11/22 Livan Sharif MD [address], [facility] [address] [place] [phone] Cardiovascular Disease 05/14/22 Livan Sharif MD [address], [facility] [address] [place] 092375 Assigned Heart and Vascular Provider 06/12/22 07/23/22 Catherine Cm MD [address] [facility] [place] [phone] Cardiovascular Disease 07/21/22 Valery Veronica, PAUcheC [address] [place] [address] 425485 Physician Slider Assembler Dermatology 07/21/22 Catherine Cm MD [address] [facility] [address] [place] 208215 Assigned Heart and Vascular Provider 07/24/22 11/05/22 Johnny Murillo MD [address] 713[address] Assigned Musculoskeletal Provider 08/14/22 10/08/22 Brea Quinn APRN FLIGHT INFORMATION EXPEDITER [address] [place] [address] 055295 Nurse Practitioner Dermatology 09/21/22 Brea Quinn, ARLENE FLIGHT INFORMATION EXPEDITER [address] [place] [address] Assigned Surgical Provider 10/09/22 05/01/24 [place] [address] [place] [address] Assigned Musculoskeletal Provider 10/09/22 05/01/24 Livan Sharif MD [address] [facility] [address] [place] [address] Assigned Heart and Vascular Provider 11/06/22 11/12/22 Catherine Cm MD [address] [place] [address] [place] [address] Assigned Heart and Vascular Provider 11/13/22 05/27/23 Sydnie Martinez, RN Personal Advocate & Liaison (PAL) Family Medicine 03/28/23 07/31/23 Alfonso Renteria MD 5775 [facility] 200 [place] [address] Assigned Neuroscience Provider 04/02/23 Cheng Todd PA-C [address] [place] [address] [id number] Assigned PCP 04/30/23 07/15/23 Radha Lomeli APRN FLIGHT INFORMATION EXPEDITER [address] [place] 519875 Assigned Heart and Vascular Provider 05/28/23 Jelena David OD [address] [facility] [place] [address] MD Ophthalmology 06/15/23 Pao Joseph, RN Personal Advocate & Liaison (PAL) Nurse 08/01/23 11/07/23 Esha Grimm PA-C [address] [place] [phone] Assigned PCP 07/16/23 Valery Veronica PA-C [address] [place] [address] 507925 Physician Slider Assembler Dermatology 09/19/23 Rey Tay MD [address] [place] [address] 655285 MD Gastroenterology 09/20/23 Rocky Zepeda DO [address] [place] [address] [phone] Physician Gastroenterology 09/20/23 Philip Dumont MD [address] [place] [address] [phone] Physician Ophthalmology 09/22/23 Meredith aCrrera PA-C [address] [place] [address] [phone] Assigned Gastroenterology Provider 11/01/23 Neil Kent MD [address] [address] Dermatology 11/02/23 [place] [address] [address] Neurological Surgery 12/26/23 Audrey Waite PAUcheC 500 [place] [address] Physician Slider Assembler Dermatology 02/28/24 Valery Veronica PA-C [address] [place] [address] Physician Slider Assembler Dermatology 04/10/24 Herminia Hatch MD [facility]5 [place] [address] Assigned Rheumatology Provider 07/02/24 documented as of this encounter
--- OUTSIDE RECORDS SUMMARY | 2024-08-28 18:20 | XMS_ITS | Encounter Summary ---
Author Organization [place] Address [address] [place] [address] Care Team Providers Care Dog Pound Attendant Name Role Phone Lita Oseguera Unavailable Unavailable Marija Edgar APRN GOAL UMPIRE Primary Care Provider + Chanelle Mccann APRN CNM Unavailab le Kyara De La Fuente RN Unavailable [phone] Marija Edgar APRN GOAL UMPIRE Unavailable [phone] Mynor Broussard MD Unavailable [phone] Keisha Dotson MD Unavailable Stacey Briones UNIX DEVELOPER Unavailable Lesley Guillermo CHW Unavailable Mary Mejia Unavailable Unavailable Lita Oseguera Unavailable Unavailable Galo Burrell MD Unavailable Unavailable Cristina Wood Unavailable Lesley Guillermo CHW Unavailable Meredith Bedoya Unavailable Unavailable Cristina Wood Unavailable Diana Desir [facility] Unavailable [phone] Rain Galaviz PA-C Unavailable Summer Lara MD Unavailable [phone] Summer Lara MD Unavailable [phone] Summer Lara MD Unavailable [phone] Tavia Wyatt MD Unavailable [phone] Johnny Murillo MD Unavailable +[phone] Erica Farrell APRN GOAL UMPIRE Unavailable + Vikas Teresita Ka Walter H Unavailable Tavia Wyatt MD Unavailable [phone] Diana Des[address] [facility] Unavailable [phone] Rich Barrett MD Unavailable [phone] Neil Kent MD Unavailable Roney StoryM Unavailable [phone] Erica Farrell APRN GOAL UMPIRE Unavailable + Diana Desir [facility] Unavailable [phone] Jelena David OD Unavailable [phone] Galo Burrell MD Unavailable Unavailable Livan Sharif MD Unavailable + Livan Sharif MD Unavailable + Catherine Cm MD Unavailable + Valery Veronica PA-C Unavailable [phone] Cathernie Cm MD Unavailable + Johnny Murillo MD Unavailable +[phone] Brea Quinn APRN GOAL UMPIRE Unavailable [phone] Brea Quinn APRN GOAL UMPIRE Unavailable [phone] Jose Francisco Johnson MD Unavailable + Livan Sharif MD Unavailable + Catherine Cm MD Unavailable + Sydnie Martinez RN Unavailable Unavailable Alfonso Renteria MD Unavailable [phone] Esha Grimm PA-C Primary Care Provider Perez Chengjc Fish PA-C Unavailable Radha Lomeli APRN GOAL UMPIRE Unavailable Jelena David OD Unavailable Pao Joseph RN Unavailable Unavailable Esha Grimm PA-C Unavailable [phone] Valery Veronica PA-C Unavailable Rey Tay MD Unavailable Rocky Zepeda DO Unavailable Philip Dumont MD Unavailable Meredith Carrera PA-C Unavailable Neil Kent MD Unavailable Juan Pablo Emmanuel MD Unavailable Audrey Waite PA-C Unavailable JeremíasValery damon PA-C Unavailable [phone] Herminia Hatch MD Unavailable Reason for Visit * Reason Onset Date Comments MyChart Communication 09/08/2020 Encounter Details Date Type Department Care Team (Latest Contact Info) Description 09/08/2020 MyC Medical Advice [address] [address] Marija Edgar APRN GOAL UMPIRE [address] [place] [address] MyChart Communication Social [...] Date Recorded PHQ-2 Score 0 08/12/2020 [facility] - Occupational [...] PM CDT Legal Sex Female 4:13 AM PRINT SHOP ASSISTANT Gender Identity Female 03/02/2021 5:45 PM CDT Sexual Orientation Straight 02/28/2020 12 :51 AM CDT COVID-19 Exposure Response Date Recorded In the last month, have you been in contact with someone who was confirmed or suspected to have Coronavirus / COVID-19? No / Unsure 09/09/2020 10:09 AM PRINT SHOP ASSISTANT documented as of this encounter Miscellaneous Notes [...] RN, BSN Message handled by CLINIC NURSE.' T SHOP ASSISTANT * Telephone Encounter - Ever Cardozo MA - 09/09/2020 7:08 AM CST Triage, could you please see if results are posted yet in regards to patients ultrasound. Ever Cardozo NUCLEAR REACTOR OPERATOR ([facility]) T SHOP ASSISTANT documented in this encounter Plan of Treatment Upcoming Encounters Date Type Department Care Team (Late st Contact Info) Description 10/23/2024 9:30 AM CDT Office Visit [facility] Neurology Clinics - [address], [address] [place] [address] [place] [address] [place] [address] Johnny Penn MD 1570 [facility] [place] [address] documented as of this encounter Visit Diagnoses Not on filedocumented in this encounter Additional Health Concerns Infection Onset Date Last Indicated Resolved Time Rule Out COVID-19 09/24/2020 09/24/2020 09/24/2020 9:24 AM CDT Rule Out COVID-19 11/05/2020 11/05/2020 11/06/2020 1:09 PM CDT Rule Out COVID-19 05/11/2021 05/11/2021 05/13/2021 10:18 AM CDT Rule Out COVID-19 07/13/2021 07/13/2021 07/14/2021 3:04 PM PRINT SHOP ASSISTANT Rule Out COVID-19 07/18/2021 07/18/2021 07/20/2021 1:56 PM PRINT SHOP ASSISTANT COVID-19 07/18/2021 07/18/2021 08/08/2021 11:3 9 PM PRINT SHOP ASSISTANT Rule Out COVID-19 12/18/2021 12/18/2021 12/19/2021 11:34 AM CDT Rule Out COVID-19 02/24/2022 02/24/2022 02/25/2022 1:08 PM CDT Rule Out COVID-19 04/26/2022 04/26/2022 04/26/2022 6:47 AM CDT Rule Out COVID-19 05/17/2022 05/17/2022 05/17/2022 10:20 PM PRINT SHOP ASSISTANT Rule Out COVID-19 06/09/2022 06/09/2022 06/09/2022 9:35 AM PRINT SHOP ASSISTANT COVID-19 06/09/2022 06/09/2022 06/30/2022 11:4 1 PM PRINT SHOP ASSISTANT Rule Out COVID-19 11/10/2022 11/10/2022 11/11/2022 12:17 PM CDT Rule Out COVID-19 03/07/2023 03/07/2023 03/07/2023 1:20 PM CDT Rule Out COVID-19 12/26/2023 12/26/2023 12/26/2023 9:50 AM CDT Rule Out COVID-19 04/09/2024 04/09/2024 04/10/2024 6:48 PM CDT Assessment Noted Time PHQ-9 Depression Total Score: 9 06/25/20 20 7:04 AM PRINT SHOP ASSISTANT documented as of this encounter Care Teams Dog Pound Attendant Relationship Specialty Start Date End Date Marija Edgar APRN GOAL UMPIRE PCP - General Nurse Practitioner 04/30/20 04/14/23 Esha Grimm PA-C [address] [place] [phone] PCP - General Family Medicine 05/04/23 Lita Oseguera Personal Advocate & Liaison (PAL) 02/28/20 03/27/23 Chanelle Mccann APRN CNAdam [address] [facility] 200 [place] [address] Assigned OBGYN Provider 05/02/2005/09 Kyara De La Fuente, RN Specialty Supervisor Fertilizer Processing Neurology 06/04/20 03/05/21 Marija Edgar APRN GOAL UMPIRE Assigned PCP 06/08/20 04/29/23 Mynor Broussard MD 6363 [facility] 500 [place] [address] Assigned Surgical Provider 06/01/20 11/28/21 Keisha Dotson MD 909 [place], [place] 137195 Assigned Neuroscience Provider 06/04/20 04/01/23 Stacey Briones, UNIX DEVELOPER Lead Supervisor Fertilizer Processing Primary Care - CC 08/11/2012/30 Lesley Guillermo, CHW Community Health Worker 08/11/2010/01 Jackie Mary Financial Resource Worker 09/02/20 10/06/20 Lita Oseguera Personal Advocate & Liaison (PAL) Family Medicine 09/10/20 09/21/20 Galo Burrell MD Assigned Heart and Vascular Provider 10/05/20 04/02/22 Cristina Wood Financial Resource Worker 10/07/20 10/14/20 Lesley Guillermo, [facility] Community Health Worker 10/23/2012/30 Meredith Bedoya Financial Resource Worker 10/23/20 11/23/20 Cristina Wood Financial Resource Worker 02/09/21 02/09/21 Diana Desir, [facility] [address] [place] [address] [phone] Pharmacist Pharmacist 04/17/21 Rain Galaviz PA-C [address] [place] [address] [address] [place] [place], [place] [phone] Physician Weight Loss Physician Dermatology 04/28/21 Summer Lara MD [address] [place] [address] [id number] Assigned OBGYN Provider 05/10/2105/23 Summer Lara MD [address] [place] [address] [phone] Assigned OBGYN Provider 05/31/21 2 Summer Lara MD [address] [place] [address] 561944 Assigned OBGYN Provider 05/24/2105/30 Tavia Wyatt MD [address] [place] [address] Dermatology 07/14/21 Johnny Murillo MD [address] [place] [address] Assigned Musculoskeletal Provider 08/30/21 03/17/22 Erica Farrell APRN GOAL UMPIRE 6405 [facility] [address] [place] [address] Nurse Practitioner Cardiovascular Disease 09/09/[address] [facility] 1440 [facility] [place], [place] [phone] Pharmacist Pharmacist 09/24/21 09/29/21 Tavia Wyatt MD [address] [place] [address] Assigned Surgical Provider 11/29/21 05/07/22 [facility] [address] [place] [address] Assigned MTM Pharmacist 01/02/22 Rich Barrett MD [address] [address] Physician Ophthalmology 01/21/22 Neil Kent MD 500 [place] [address] Dermatology 02/24/22 Roney Story DPM [address] [facility] [address] [place] [address] Assigned Musculoskeletal Provider 03/20/22 08/13/22 Erica Farrell APRN GOAL UMPIRE 1700 [place] [address] Assigned Heart and Vascular Provider 04/03/22 04/16/22 [facility] 3033 [place] [address] Assigned MTM Pharmacist 04/07/22 Jelena David OD [address] [facility] [place] [address] Assigned Surgical Provider 05/08/22 10/08/22 Galo Burrell MD Assigned Heart and Vascular Provider 04/17/22 06/11/22 Livan Sharif MD [address] [place] [address] [place] [address] Cardiovascular Disease 05/14/22 Livan Sharif MD [address] [place] [address] [place] [address] Assigned Heart and Vascular Provider 06/12/22 07/23/22 Catherine Cm MD [address] [place] [address] [place] [address] Cardiovascular Disease 07/21/22 Valery Veronica, PAUcheC 909 [place] [address] Physician Weight Loss Physician Dermatology 07/21/22 Catherine Cm MD [address] [facility] [place] [address] Assigned Heart and Vascular Provider 07/24/22 11/05/22 Johnny Murillo MD [facility] [place][note 2][address] [address] Assigned Musculoskeletal Provider 08/14/22 10/08/22 Brea Quinn APRN GOAL UMPIRE [address] [place] [address] [phone] Nurse Practitioner Dermatology 09/21/22 Brea Quinn APRN GOAL UMPIRE [address] [place] [address] [place] [address] Assigned Surgical Provider 10/09/22 05/01/24 [place] [address] [address] Assigned Musculoskeletal Provider 10/09/22 05/01/24 Livan Sharif MD [address], [facility] [address] [place] 232565 Assigned Heart and Vascular Provider 11/06/22 11/12/22 Catherine Cm MD [address] [facility] [address] [place] [address] Assigned Heart and Vascular Provider 11/13/22 05/27/23 Sydnie Martinez, VJ Personal Advocate & Liaison (PAL) Family Medicine 03/28/23 07/31/23 Alfonso Renteria MD 5775 [facility] [address] 200 [place] [address] Assigned Neuroscience Provider 04/02/23 Cheng Todd PA-C [address] [place] [address] [id number] Assigned PCP 04/30/23 07/15/23 Radha Lomeli APRN GOAL UMPIRE 6405 [facility] [address] [place] [address] Assigned Heart and Vascular Provider 05/28/23 Jelena David OD [address] [facility] [place] [address] Ophthalmology 06/15/23 Pao Joseph RN Personal Advocate & Liaison (PAL) Nurse 08/01/23 11/07/23 Esha Grimm PA-C [address] [place] [phone] Assigned PCP 07/16/23 Valery Veronica PA-C [address] [place] [address] 040845 Physician Weight Loss Physician Dermatology 09/19/23 Rey Tay MD [address] [place] [address] [phone] MD Gastroenterology 09/20/23 Rocky Zepeda DO 500 [place], [place] 439555 Physician Gastroenterology 09/20/23 Philip Dumont MD 516 [place] [address] Physician Ophthalmology 09/22/23 Meredith Carrera PA-C 909 [place], [place] 565675 Assigned Gastroenterology Provider 11/01/23 Neil Kent MD [address] [address] MD Dermatology 11/02/23 [place] [address] 076187 Neurological Surgery 12/26/23 Audrey Waite PA-C 500 [place] [address] Physician Weight Loss Physician Dermatology 02/28/24 Valery Veronica PA-C 042923 [place], [place] [address] Physician Weight Loss Physician Dermatology 04/10/24 Herminia Hatch MD [facility]5 [place] [address] Assigned Rheumatology Provider 07/02/24 documented as of this encounter
--- OUTSIDE RECORDS SUMMARY | 2024-08-28 18:20 | XMS_ITS | Encounter Summary ---
Author Organization [facility] Address [address] [place] [address] Care Team Providers Care Supply Chain Design Manager Name Role Phone Lita Oseguera Unavailable Unavailable Marija Edgar APRN BAG SEWER Primary Care Provider + Marija Edgar APRN BAG SEWER Unavailable [phone] Keisha Dotson MD Unavailable Diana Desir [facility] Unavailable Rain Galaviz PA-C Unavailable Tavia Wyatt MD Unavailable [phone] Erica Farrell APRN BAG SEWER Unavailable Tavia Wyatt MD Unavailable [phone] Rich Barrett MD Unavailable [phone] Neil Kent MD Unavailable Roney Story DPM Unavailable Erica Farrell APRN BAG SEWER Unavailable Diana Desir [facility] Unavailable [phone] Jelena David OD Unavailable [phone] Galo Burrell MD Unavailable Unavailable Livan Sharif MD Unavailable Livan Sharif MD Unavailable + Isfaby, Catherine Marques MD Unavailable + Valery Veronica PA-C Unavailable +[phone] IsraynaCatherine boothe MD Unavailable + Johnny Murillo MD Unavailable [phone] Brea Quinn ANHYDROUS AMMONIA PRODUCTION SUPERVISOR BAG SEWER Unavailable [phone] Brea Quinn ANHYDROUS AMMONIA PRODUCTION SUPERVISOR BAG SEWER Unavailable [phone] Jose Francisco Johnson MD Unavailable Livan Sharif MD Unavailable + Isfaby, Catherine Marques MD Unavailable + Sydnie Martinez RN Unavailable Unavailable Alfonso Renteria MD Unavailable [phone] Esha Grimm PA-C Primary Care Provider Cheng Todd PA-C Unavailable Radha Lomeli ANHYDROUS AMMONIA PRODUCTION SUPERVISOR BAG SEWER Unavailable [phone] Jelena David SONJA Unavailable Pao Joseph RN Unavailable Unavailable Esha Grimm PA-C Unavailable [phone] Valery Veronica PA-C Unavailable [phone] Rey Tay MD Unavailable Rocky Zepeda DO Unavailable Philip Dumont MD Unavailable [phone] Meredith Carrera PA-C Unavailable [phone] Neil Kent MD Unavailable Juan Pablo Emmanuel MD Unavailable Audrey Waite PA-C Unavailable [phone] Valery Veronica PA-C Unavailable [phone] Herminia Hatch MD Unavailable Encounter Details Date Type Department Care Team (Late st Contact Info) Description 04/07/2022 MyC Medical Advice [address] [address] Diana Desir, [facility] [address] [place] [address] Social History Tobacco Use Types Packs/Day Years [...] How often do you attend tenriism or denominational serv ices? Never 09/22/2021 Do [...] in a penitentiary (including now)? No 09/22/2021 [place] Depression Scale Answer Date Recorded [place] Depression Score 5 01/14/2021 Last EPDS Self Harm Result Not on file 01/14 Education Answer Date Recorded What is the highest level of school you have completed or the highest degree you have received? 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 ALLIANCE CONSULTANT Gender Identity Female 03/02/2021 5:45 PM [...] CDT Office Visit [facility] Neurology [address], [address] [place] [address] [place] [address] [place] [id number] Johnny Penn MD [address] [place] [address] documented as of this encounter Visit Diagnoses Not on filedocumented in this encounter Additional Health Concerns Infection Onset Date Last Indicated Resolved Time Rule Out COVID-19 04/26/2022 04/26/2022 04/26/2022 6:47 AM CDT Rule Out COVID-19 05/17/2022 05/17/2022 05/17/2022 10:20 PM ALLIANCE CONSULTANT Rule Out COVID-19 06/09/2022 06/09/2022 06/09/2022 9:35 AM ALLIANCE CONSULTANT COVID-19 06/09/2022 06/09/2022 06/30/2022 11:4 1 PM ALLIANCE CONSULTANT Rule Out COVID-19 11/10/2022 11/10/2022 11/11/2022 12:17 PM CDT Rule Out COVID-19 03/07/2023 03/07/2023 03/07/2023 1:20 PM CDT Rule Out COVID-19 12/26/2023 12/26/2023 12/26/2023 9:50 AM CDT Rule Out COVID-19 04/09/2024 04/09/2024 04/10/2024 6:48 PM CDT Assessment Noted Time PHQ-9 Depression Total Score: 2 12/19/19 2:50 PM CDT documented as of this encounter Care Teams Supply Chain Design Manager Relationship Specialty Start Date End Date Marija Edgar APRN BAG SEWER PCP - General Nurse Practitioner 04/30/20 04/14/23 Esha Grimm PA-C [address] [place] [phone] PCP - General Family Medicine 05/04/23 Lita Oseguera Personal Advocate & Liaison (PAL) 02/28/20 03/27/23 Marija Edgar APRN BAG SEWER Assigned PCP 06/08/20 04/29/23 Keisha Dotson MD [address] [place], [place] 36[address] Assigned Neuroscience Provider 06/04/20 04/01/23 Diana Desir [facility] [address] [place], [place] 7517[address] Pharmacist Pharmacist 04/17/21 Rain Galaviz PA-C [address] [place] [address] [address] [place] [address] Physician Product Engineering Manager Dermatology 04/28/21 Tavia Wyatt MD [address] [place] [address] [place] [address] Dermatology 07/14/21 Erica Farrell APRN BAG SEWER [address] [address] Nurse Practitioner Cardiovascular Disease 09/09/21 Tavia Wyatt MD [address] [place], [place] 121910 Assigned Surgical Provider 11/29/21 05/07/22 Rich Barrett MD [address] 314[address] Physician Ophthalmology 01/21/22 Neil Kent MD [address] [place] [address] 795295 Dermatology 02/24/22 Roney Story DPM [address] [facility] [address] [place], [place] 667827 Assigned Musculoskeletal Provider 03/20/22 08/13/22 Erica Farrell APRN BAG SEWER 1700 [place] [address] Assigned Heart and Vascular Provider 04/03/22 04/16/22 Diana Desir, [facility] [address] [place], [place] 642686 Assigned MTM Pharmacist 04/07/22 Jelena David OD [address] [facility] [place] [address] Assigned Surgical Provider 05/08/22 10/08/22 Galo Burrell MD Assigned Heart and Vascular Provider 04/17/22 06/11/22 Livan Sharif MD [address] [place] [address] Cardiovascular Disease 05/14/22 Livan Sharif MD [address] [place] [address] Assigned Heart and Vascular Provider 06/12/22 07/23/22 Catherine Cm MD [address] [place], [place] 251735 Cardiovascular Disease 07/21/22 Valery Veronica, PAUcheC [address] [place], [place] 311145 Physician Product Engineering Manager Dermatology 07/21/22 Catherine Cm MD [address] [place] [address] Assigned Heart and Vascular Provider 07/24/22 11/05/22 Johnny Murillo MD [address] [place] [address] Assigned Musculoskeletal Provider 08/14/22 10/08/22 Brea Quinn APRN BAG SEWER [address] [facility] [place] [address] Nurse Practitioner Dermatology 09/21/22 Brea Quinn APRN BAG SEWER [facility]1 [facility] [place] 7[address]42 Assigned Surgical Provider 10/09/22 05/01/24 [place] [address] [facility] [address] [place], [place] 123217 Assigned Musculoskeletal Provider 10/09/22 05/01/24 Livan Sharif MD [address], [facility] [address] [place] 394915 Assigned Heart and Vascular Provider 11/06/22 11/12/22 Catherine Cm MD [address] [facility] [address] [place], [place] 681055 Assigned Heart and Vascular Provider 11/13/22 05/27/23 Sydnie Martinez, RN Personal Advocate & Liaison (PAL) Family Medicine 03/28/23 07/31/23 Alfonso Renteria MD [address] [facility] 200 [place], [place] 696626 Assigned Neuroscience Provider 04/02/23 Cheng Todd PA-C [address] [place] [address] [phone] Assigned PCP 04/30/23 07/15/23 Lomeli Radha ARLENE Stovall BAG SEWER [address] [facility] [address] [place], [place] 613565 Assigned Heart and Vascular Provider 05/28/23 Jelena David OD [address] [facility] [place] [address] Ophthalmology 06/15/23 Pao Joseph, VJ Personal Advocate & Liaison (PAL) Nurse 08/01/23 11/07/23 Esha Grimm PA-C [address] [place] [phone] Assigned PCP 07/16/23 Valery Veronica PA-C [address] [place] [address] 178665 Physician Product Engineering Manager Dermatology 09/19/23 Rey Tay MD [address] [place] [address] 277965 Gastroenterology 09/20/23 Rocky Zepeda DO [address] [place] [address] 309025 Physician Gastroenterology 09/20/23 Philip Dumont MD [address] [place] [address] 302175 Physician Ophthalmology 09/22/23 Meredith Carrera PA-C [address] [place] [address] Assigned Gastroenterology Provider 11/01/23 Neil Kent MD [address] [place] [address] Dermatology 11/02/23 [place] [address] [address] Neurological Surgery 12/26/23 Audrey Waite PA-C 500 [place] [address] Physician Product Engineering Manager Dermatology 02/28/24 Valery Veronica PA-C [address] [place] [address] Physician Product Engineering Manager Dermatology 04/10/24 Herminia Hatch MD [facility]5 [place] [address] Assigned Rheumatology Provider 07/02/24 documented as of this encounter
--- OUTSIDE RECORDS SUMMARY | 2024-08-28 18:20 | XMS_ITS | Clinical Summary ---
Author Organization [facility] Address [address] [address] Phone Care Team Providers Care Surgical Training Specialist Name Role Phone Unavailable Primary Care [...]
--- OUTSIDE RECORDS SUMMARY | 2024-08-28 18:20 | XMS_ITS | Encounter Summary ---
Author Organization [facility] Address [address] [place] [address] Care Team Providers Care Stripe Marker Name Role Phone Lita Oseguera Unavailable Unavailable Marija Edgar APRN INSURANCE BILLING CLERK Primary Care Provider + Chanelle Mccann APRN CNM Unavailab le Kyara De La Fuente RN Unavailable [phone] Marija Edgar APRN INSURANCE BILLING CLERK Unavailable [phone] Mynor Broussard MD Unavailable [phone] Keisha Dotson MD Unavailable [phone] Galo Burrell MD Unavailable Unavailable Cristina Wood Unavailable Diana Desir [facility] Unavailable Rain Galaviz PA-C Unavailable Summer Lara MD Unavailable [phone] Summer Lara MD Unavailable [phone] Summer Lara MD Unavailable [phone] Tavia Wyatt MD Unavailable Johnny Murillo MD Unavailable Erica Farrell APRN INSURANCE BILLING CLERK Unavailable Vikas Teresita Watson [facility] Unavailable Tavia Wyatt MD Unavailable Diana Desir [facility] Unavailable [phone] Rich Barrett MD Unavailable Neil Kent MD Unavailable Roney Story DPM Unavailable [phone] Erica Farrell APRN INSURANCE BILLING CLERK Unavailable Diana Desir [facility] Unavailable [phone] Jelena David Unavailable Galo Burrell MD Unavailable Unavailable Livan Sharif MD Unavailable Livan Sharif MD Unavailable + Catherine Cm MD Unavailable + Valery Veronica-C Unavailable [phone] Catherine Cm MD Unavailable + Johnny Murillo MD Unavailable [phone] Brea Quinn COLLECTION COORDINATOR INSURANCE BILLING CLERK Unavailable [phone] Brea Quinn COLLECTION COORDINATOR INSURANCE BILLING CLERK Unavailable [phone] Jose Francisco Johnson MD Unavailable Livan Sharif MD Unavailable + Catherine Cm MD Unavailable + Sydnie Martinez RN Unavailable Unavailable Alfonso Renteria MD Unavailable [phone] Esha Grimm PA-C Primary Care Provider Cheng Todd PA-C Unavailable Radha Lomeli COLLECTION COORDINATOR INSURANCE BILLING CLERK Unavailable Jelena David OD Unavailable [phone] Pao Joseph RN Unavailable Unavailable Esha Grimm PA-C Unavailable [phone] Valery Veronica PA-C Unavailable Rey Tay MD Unavailable Rocky Zepeda DO Unavailable Philip Dumont MD Unavailable Meredith Carrera PA-C Unavailable [phone] Neil Kent MD Unavailable Juan Pablo Emmanuel MD Unavailable Audrey Waite PA-C Unavailable [phone] JeremíasValery damon PA-C Unavailable [phone] Herminia Hatch MD Unavailable Encounter Details Date Type Department Care Team (Late st Contact Info) Description 01/06/2021 Orders Only [facility] - Surgical Specialties Service Line [address] [place] [address] Saurabh Marcial MD [address] [facility] 200 [place] [address] Indication for care in labor [...] do you attend chur or christianity services? More than 4 times [...] Answer Date Recorded PHQ-2 Score 3 09/29/2020 [facility] - Occupational Stress [...] PM CDT Legal Sex Female 4:13 AM CLUB LICENSEE Gender Identity Female 03/02/2021 5:45 PM CDT [...] Description 10/23/2024 9:30 AM CDT Office Visit [address], [address] [place] [address] [place] [address] [place] [address] Johnny Penn MD [address] [place], [place] 155975 documented as of this encounter Results * Asymptomatic COVID-19 Virus (Coronavirus) by PCR (01/09/2021 10:44 AM CDT) COVID-19 Virus PCR to [facility] - Source Nasopharyngeal 01/09/2021 10:45 AM CDT [facility] COVID-19 Virus PCR to [facility] - Result Test received-See reflex to IDDL test SARS CoV2 (COVID-19) Virus RT-PCR 01/09/2021 6:32 PM CDT [facility], [facility] Specimen from nasopharyngeal structure (specimen) 01/09/2021 10:44 AM CDT 01/09/2021 10:45 AM CDT Saurabh Marcial MD LAB - MICRO GENERAL ORDE SHARON Final Result INFECTIOUS DISEASES [facility], [facility] [address] [place] [address], [facility] [address] [place] [address], [facility] [phone] documented in this encounter Visit Diagnoses Diagnosis Indication for care in labor and delivery, antepartum- Primary Unspecified indication for care or intervention related to labor and delivery, antepartum documented in this encounter Additional Health Concerns Infection Onset Date Last Indicated Resolved Time Rule Out COVID-19 05/11/2021 05/11/2021 05/13/2021 10:18 AM CDT Rule Out COVID-19 07/13/2021 07/13/2021 07/14/2021 3:04 PM CLUB LICENSEE Rule Out COVID-19 07/18/2021 07/18/2021 07/20/2021 1:56 PM CLUB LICENSEE COVID-19 07/18/2021 07/18/2021 08/08/2021 11:3 9 PM CLUB LICENSEE Rule Out COVID-19 12/18/2021 12/18/2021 12/19/2021 11:34 AM CDT Rule Out COVID-19 02/24/2022 02/24/2022 02/25/2022 1:08 PM CDT Rule Out COVID-19 04/26/2022 04/26/2022 04/26/2022 6:47 AM CDT Rule Out COVID-19 05/17/2022 05/17/2022 05/17/2022 10:20 PM CLUB LICENSEE Rule Out COVID-19 06/09/2022 06/09/2022 06/09/2022 9:35 AM CLUB LICENSEE COVID-19 06/09/2022 06/09/2022 06/30/2022 11:4 1 PM CLUB LICENSEE Rule Out COVID-19 11/10/2022 11/10/2022 11/11/2022 12:17 PM CDT Rule Out COVID-19 03/07/2023 03/07/2023 03/07/2023 1:20 PM CDT Rule Out COVID-19 12/26/2023 12/26/2023 12/26/2023 9:50 AM CDT Rule Out COVID-19 04/09/2024 04/09/2024 04/10/2024 6:48 PM CDT Assessment Noted Time PHQ-9 Depression Total Score: 6 09/30/19 21 3:25 PM CDT documented as of this encounter Care Teams Stripe Marker Relationship Specialty Start Date End Date Marija Edgar APRN CNP PCP - General Nurse Practitioner 04/30/20 04/14/23 Esha Grimm PA-C [address] [place] [address] PCP - General Family Medicine 05/04/23 Lita Oseguera Personal Advocate & Liaison (PAL) 02/28/20 03/27/23 Chanelle Mccann APRN CNM [address] [facility] 200 [place] [address] Assigned OBGYN Provider 05/02/2005/09 Kyara De La Fuente, RN Specialty Living Supervisor Neurology 06/04/20 03/05/21 Marija Edgar APRN INSURANCE BILLING CLERK Assigned PCP 06/08/20 04/29/23 Mynor Broussard MD [address] [facility] 500 [place] [address] Assigned Surgical Provider 06/01/20 11/28/21 Keisha Dotson MD 9 [place] [address] Assigned Neuroscience Provider 06/04/20 04/01/23 Galo Burrell MD Assigned Heart and Vascular Provider 10/05/20 04/02/22 Cristina Wood Financial Resource Worker 02/09/21 02/09/21 Diana Desir [facility] [address] [place] [address] Pharmacist Pharmacist 04/17/21 Rain Galaviz PA-C [address] [place] [address] [address] [place] [address] Physician Bridge Painter Dermatology 04/28/21 Summer Lara MD [address] [place] [address] Assigned OBGYN Provider 05/10/2105/23 Summer Lara MD [address] [place] [address] Assigned OBGYN Provider 05/31/21 2 Summer Lara MD [address] [place] [address] Assigned OBGYN Provider 05/24/2105/30 Tavia Wyatt MD [address] [place] [address] Dermatology 07/14/21 Johnny Murillo MD [facility] [place] [address] [facility] [address] [place] [address] Assigned Musculoskeletal Provider 08/30/21 03/17/22 Erica Farrell APRN [facility] [address] [facility] [address] [place], [place] 7[address] Nurse Practitioner Cardiovascular Disease 09/09/21 Teresita Bean [facility] [address] [place], [place] [phone] Pharmacist Pharmacist 09/24/21 09/29/21 Tavia Wyatt MD [address] [place] [address] Assigned Surgical Provider 11/29/21 05/07/22 Diana Desir, [facility] [address] [place] [address] Assigned MTM Pharmacist 01/02/22 Rich Barrett MD [address] [facility], [address] 720575 Physician Ophthalmology 01/21/22 Neil Kent MD 500 [place] [address] Dermatology 02/24/22 Roney Story DPM [address] [facility] [address] [place] [address] Assigned Musculoskeletal Provider 03/20/22 08/13/22 Erica Farrell APRN INSURANCE BILLING CLERK 1700 [place] [address] Assigned Heart and Vascular Provider 04/03/22 04/16/22 Diana Desir, [facility] [address] [place] [address] Assigned MTM Pharmacist 04/07/22 Jelena David OD [address] [facility] [place] [address] Assigned Surgical Provider 05/08/22 10/08/22 Galo Burrell MD Assigned Heart and Vascular Provider 04/17/22 06/11/22 Livan Sharif MD 6[address] [facility], [facility] [address] [place] [address] Cardiovascular Disease 05/14/22 Livan Sharif MD [address] [address] 7786800 [place] 427805 Assigned Heart and Vascular Provider 06/12/22 07/23/22 Catherine Cm MD [address] [place] [address] Cardiovascular Disease 07/21/22 Valery Veronica, PA-C [address] [place] [address] 036355 Physician Bridge Painter Dermatology 07/21/22 Catherine Cm MD [address] [facility] [address] [address] Assigned Heart and Vascular Provider 07/24/22 11/05/22 Johnny Murillo MD [address] [place] [address] Assigned Musculoskeletal Provider 08/14/22 10/08/22 Brea Quinn APRN INSURANCE BILLING CLERK [address] [place] [address] 605925 Nurse Practitioner Dermatology 09/21/22 Brea Quinn APRN INSURANCE BILLING CLERK [address] [place] [address] [place] [address] Assigned Surgical Provider 10/09/22 05/01/24 [place] [address] [place] [address] Assigned Musculoskeletal Provider 10/09/22 05/01/24 Livan Sharif MD [address], [facility] [address] [place] [address] Assigned Heart and Vascular Provider 11/06/22 11/12/22 Catherine Cm MD [address] [facility] [address] [place] [address] Assigned Heart and Vascular Provider 11/13/22 05/27/23 Sydnie Martinez RN Personal Advocate & Liaison (PAL) Family Medicine 03/28/23 07/31/23 Alfonso Renterai MD [address] [facility] 200 [place] [address] Assigned Neuroscience Provider 04/02/23 Cheng Todd PA-C [address] [place] [address] [phone] Assigned PCP 04/30/23 07/15/23 Radha Lomeli APRN INSURANCE BILLING CLERK [address] [place] [address] Assigned Heart and Vascular Provider 05/28/23 Jelena David OD [address] [facility] [place] [address] Ophthalmology 06/15/23 Pao Joseph RN Personal Advocate & Liaison (PAL) Nurse 08/01/23 11/07/23 Esha Grimm PA-C [address] [place] [address] Assigned PCP 07/16/23 Valery Veronica PA-C 9 [place] [address] Physician Bridge Painter Dermatology 09/19/23 Rey Tay MD [address] [place] [address] MD Gastroenterology 09/20/23 Rocky Zepeda DO [address] [place] [address] 345925 Physician Gastroenterology 09/20/23 Philip Dumont MD [address] [place] [address] Physician Ophthalmology 09/22/23 Meredith Carrera PA-C [address] [place] [address] Assigned Gastroenterology Provider 11/01/23 Neil Kent MD [address] [address] Dermatology 11/02/23 [place] [address] [place] 139[address] Neurological Surgery 12/26/23 Audrey Waite PA-C [address] [place] [address] 008285 Physician Bridge Painter Dermatology 02/28/24 Valery Veronica PA-C [address] [place] [address] Physician Bridge Painter Dermatology 04/10/24 Herminia Hatch MD [address] [place] [address] [id number] Assigned Rheumatology Provider 07/02/24 documented as of this encounter
--- OUTSIDE RECORDS SUMMARY | 2024-08-28 18:20 | XMS_ITS | Encounter Summary ---
Author Organization [facility] Address [address] [place] [address] Care Team Providers Care Residence Manager Name Role Phone Lita Oseguera Unavailable Unavailable Marija Edgar APRN COMMUNICATIONS COORDINATOR Primary Care Provider + Chanelle Mccann BOTTLE BOOTH ATTENDANT CNM Unavailab le Kyara De La Fuente RN Unavailable [phone] Marija Edgar APRN COMMUNICATIONS COORDINATOR Unavailable [phone] Mynor Broussard MD Unavailable [phone] Keisha Dotson MD Unavailable [phone] Stacey Briones HOUSE STEWARD/STEWARDESS Unavailable Mary Mejia Unavailable Unavailable Galo Burrell MD Unavailable Unavailable Cristina Wood Unavailable Lesley Guillermo CHW Unavailable Meredith Bedoya Unavailable Unavailable Cristina Wood Unavailable Diana Desir [facility] Unavailable [phone] Rain Galaviz PA-C Unavailable [phone] Summer Lara MD Unavailable [phone] Summer Lara MD Unavailable [phone] Summer Lara MD Unavailable [phone] Tavia Wyatt MD Unavailable [phone] Johnny Murillo MD Unavailable [phone] Erica Farrell APRN COMMUNICATIONS COORDINATOR Unavailable Teresita Bean [facility] Unavailable Tavia Wyatt MD Unavailable [phone] Diana [place] [facility] Unavailable [phone] Rich Barrett MD Unavailable Neil Kent MD Unavailable Roney Story DPM Unavailable [phone] Erica Farrell BOTTLE BOOTH ATTENDANT COMMUNICATIONS COORDINATOR Unavailable Diana Desir [facility] Unavailable [phone] Tommy Davidmao Garcia Unavailable [phone] Galo Burrell MD Unavailable Unavailable Livan Sharif MD Unavailable + Livan Sharif MD Unavailable + Catherine Cm MD Unavailable + Valery Veronica PA-C Unavailable [phone] Catherine Cm MD Unavailable + Johnny Murillo MD Unavailable +1- Brea Quinn BOTTLE BOOTH ATTENDANT COMMUNICATIONS COORDINATOR Unavailable +1- Brea Quinn BOTTLE BOOTH ATTENDANT COMMUNICATIONS COORDINATOR Unavailable [phone] Jose Francisco Johnson MD Unavailable Livan Sharif MD Unavailable + Catherine Cm MD Unavailable + Sydnie Martinez RN Unavailable Unavailable Alfonso Renteria MD Unavailable [phone] Esha Grimm PA-C Primary Care Provider [phone] Cheng Todd PA-C Unavailable Radha Lomeli APRN COMMUNICATIONS COORDINATOR Unavailable Jelena David OD Unavailable Pao Joseph RN Unavailable Unavailable Esha Grimm PA-C Unavailable [phone] Valery Veronica PA-C Unavailable [phone] Rey Tay MD Unavailable Rocky Zepeda DO Unavailable Philip Dumont MD Unavailable Meredith Carrera-C Unavailable Neil Kent MD Unavailable Juan Pablo Emmanuel MD Unavailable Audrey Waite PA-C Unavailable Valery Veronica-C Unavailable [phone] Herminia Hatch MD Unavailable Encounter Details Date Type Department Care Team (Late st Contact Info) Description 10/02/2020 MyC Medical Advice [facility] Care Coordination [facility] [address] [place] [phone] Stacey Briones, [facility] Social History Tobacco Use Types Packs/Day [...] Answer Date Recorded PHQ-2 Score 3 09/29/2020 [facility] [place] of Occupat ional Health - Occupational Stress [...] CDT Legal Sex Female 4:13 AM PRODUCT MARKETING INTERN Gender Identity Female 03/02/2021 5:45 PM [...] [facility] [address] [facility], [address] [place], [place] [phone] [place] [address] [place], [place] [address] Johnny Penn MD [address] [place], [place] [address]24395 documented as of this encounter Visit Diagnoses Not on filedocumented in this encounter Additional Health Concerns Infection Onset Date Last Indicated Resolved Time Rule Out COVID-19 11/05/2020 11/05/2020 11/06/2020 1:09 PM CDT Rule Out COVID-19 05/11/2021 05/11/2021 05/13/2021 10:18 AM CDT Rule Out COVID-19 07/13/2021 07/13/2021 07/14/2021 3:04 PM PRODUCT MARKETING INTERN Rule Out COVID-19 07/18/2021 07/18/2021 07/20/2021 1:56 PM PRODUCT MARKETING INTERN COVID-19 07/18/2021 07/18/2021 08/08/2021 11:3 9 PM PRODUCT MARKETING INTERN Rule Out COVID-19 12/18/2021 12/18/2021 12/19/2021 11:34 AM CDT Rule Out COVID-19 02/24/2022 02/24/2022 02/25/2022 1:08 PM CDT Rule Out COVID-19 04/26/2022 04/26/2022 04/26/2022 6:47 AM CDT Rule Out COVID-19 05/17/2022 05/17/2022 05/17/2022 10:20 PM PRODUCT MARKETING INTERN Rule Out COVID-19 06/09/2022 06/09/2022 06/09/2022 9:35 AM PRODUCT MARKETING INTERN COVID-19 06/09/2022 06/09/2022 06/30/2022 11:4 1 PM PRODUCT MARKETING INTERN Rule Out COVID-19 11/10/2022 11/10/2022 11/11/2022 12:17 PM CDT Rule Out COVID-19 03/07/2023 03/07/2023 03/07/2023 1:20 PM CDT Rule Out COVID-19 12/26/2023 12/26/2023 12/26/2023 9:50 AM CDT Rule Out COVID-19 04/09/2024 04/09/2024 04/10/2024 6:48 PM CDT Assessment Noted Time PHQ-9 Depression Total Score: 6 09/30/19 3:25 PM CDT documented as of this encounter Care Teams Residence Manager Relationship Specialty Start Date End Date Marija Edgar APRN COMMUNICATIONS COORDINATOR PCP - General Nurse Practitioner 04/30/20 04/14/23 Esha Grimm PA-C [address] [place] [phone] PCP - General Family Medicine 05/04/23 Lita Oseguera Personal Advocate & Liaison (PAL) 02/28/20 03/27/23 Chanelle Mccann APRN CNM [address] [facility] 200 [place] [address] Assigned OBGYN Provider 05/02/2005/09 Kyara De La Fuente, RN Specialty Endoscopy Rn Neurology 06/04/20 03/05/21 Marija Edgar APRN COMMUNICATIONS COORDINATOR Assigned PCP 06/08/20 04/29/23 Mynor Broussard MD 6363 [facility] 500 [place] [address] Assigned Surgical Provider 06/01/20 11/28/21 Keisha Dotson MD 909 [place] [address] Assigned Neuroscience Provider 06/04/20 04/01/23 Stacey Briones, [facility] Lead Endoscopy Rn Primary Care - CC 08/11/2012/30 Mary Mejia Financial Resource Worker 09/02/20 10/06/20 Galo Burrell MD Assigned Heart and Vascular Provider 10/05/20 04/02/22 Cristina Wood Financial Resource Worker 10/07/20 10/14/20 Lesley Guillermo, [facility] Community Health Worker 10/23/2012/30 Meredith Bedoya Financial Resource Worker 10/23/20 11/23/20 Cristina Wood Financial Resource Worker 02/09/21 02/09/21 Diana Desir, [facility] 30[address] [place], [place] 504606 Pharmacist Pharmacist 04/17/21 Rain Galaviz PA-C [address] [place] [address] DR [facility] [place] [address] Physician Flame Channeler Dermatology 04/28/21 Summer Lara MD [address] [place] [address] [phone] Assigned OBGYN Provider 05/10/2105/23 Summer Lara MD [address] [place] [address] [phone] Assigned OBGYN Provider 05/31/21 2 Summer Lara MD [address] [place] [address] [phone] Assigned OBGYN Provider 05/24/2105/30 Tavia Wyatt MD 606 [facility] [place] [address] Dermatology 07/14/21 Johnny Murillo MD [facility] [phone] Assigned Musculoskeletal Provider 08/30/21 03/17/22 Erica Farrell APRN COMMUNICATIONS COORDINATOR 6405 [facility] [address] [place], [place] 934205 Nurse Practitioner Cardiovascular Disease 09/09/21 Teresita Bean [facility] [address] [place] [phone] Pharmacist Pharmacist 09/24/21 09/29/21 Tavia Wyatt MD [address] [place] [address] Assigned Surgical Provider 11/29/21 05/07/22 Diana Desir, [facility] [address] [place], [place] 106496 Assigned MTM Pharmacist 01/02/22 Rich Barrett MD [address] [address] Physician Ophthalmology 01/21/22 Neil Kent MD 500 [place] [address] Dermatology 02/24/22 Roney Story DPM [address] [facility] [address] [place] [address] Assigned Musculoskeletal Provider 03/20/22 08/13/22 Erica Farrell APRN COMMUNICATIONS COORDINATOR 1700 [place] [address] Assigned Heart and Vascular Provider 04/03/22 04/16/22 [facility] [address] [place] [address] Assigned MTM Pharmacist 04/07/22 [place] David [place] [address] [facility] [place] [address] Assigned Surgical Provider 05/08/22 10/08/22 Galo Burrell MD Assigned Heart and Vascular Provider 04/17/22 06/11/22 Livan Sharif MD [address] [place] 317255 Cardiovascular Disease 05/14/22 Livan Sharif MD [address] [place] [address] Assigned Heart and Vascular Provider 06/12/22 07/23/22 Cahterine Cm MD [address] [place] [address] Cardiovascular Disease 07/21/22 Valery Veronica PA-C [address] [place] [address] [phone] Physician Flame Channeler Dermatology 07/21/22 Catherine Cm MD [address] [email or web address] [place] 020435 Assigned Heart and Vascular Provider 07/24/22 11/05/22 Johnny Murillo MD [address] [place] [address] [phone] Assigned Musculoskeletal Provider 08/14/22 10/08/22 Brea Quinn APRN COMMUNICATIONS COORDINATOR [address] [place] [address] [phone] Nurse Practitioner Dermatology 09/21/22 Brea Quinn APRN COMMUNICATIONS COORDINATOR [address] [place] [address] [place] 849192 Assigned Surgical Provider 10/09/22 05/01/24 [place] [address] [place] 243097 Assigned Musculoskeletal Provider 10/09/22 05/01/24 Livan Sharif MD [address], [facility] [address] [place] 635345 Assigned Heart and Vascular Provider 11/06/22 11/12/22 Catherine Cm MD [address] [place] [address] Assigned Heart and Vascular Provider 11/13/22 05/27/23 Sydnie Martinez RN Personal Advocate & Liaison (PAL) Family Medicine 03/28/23 07/31/23 Alfonso Renteria MD 57[address] [facility] [address] 200 [place], [place] 629896 Assigned Neuroscience Provider 04/02/23 Cheng Todd PA-C [address] [place] [address] [phone] Assigned PCP 04/30/23 07/15/23 Radha Lomeli APRN COMMUNICATIONS COORDINATOR [address] [place] 236585 Assigned Heart and Vascular Provider 05/28/23 Jelena David OD [address] [facility] [place] [address] Ophthalmology 06/15/23 Pao Joseph, VJ Personal Advocate & Liaison (PAL) Nurse 08/01/23 11/07/23 Esha Grimm PA-C [address] [place] [phone] Assigned PCP 07/16/23 Valery Veronica PA-C 909 [place], [place] 589785 Physician Flame Channeler Dermatology 09/19/23 Rey Tay MD 909 [place], [place] 882335 MD Gastroenterology 09/20/23 Rocky Zepeda DO 500 [place] [address] Physician Gastroenterology 09/20/23 Philip Dumont MD 516 [place], [place] 446415 Physician Ophthalmology 09/22/23 Meredith Carrera PA-C 9 [place] [address] Assigned Gastroenterology Provider 11/01/23 Neil Kent MD [address] [place] [address] 897290 Dermatology 11/02/23 [place] [address] 2004[address] Neurological Surgery 12/26/23 Audrey Waite PA-C 500 [place] [address] Physician Flame Channeler Dermatology 02/28/24 Valery Veronica PA-C 460798 [place] [address] Physician Flame Channeler Dermatology 04/10/24 Herminia Hatch MD [facility]5 [place] [address] Assigned Rheumatology Provider 07/02/24 documented as of this encounter
--- OUTSIDE RECORDS SUMMARY | 2024-08-28 18:20 | XMS_ITS | Encounter Summary ---
Author Organization [facility] Address [address] [place] [address] Care Team Providers Care Sprinkler Truck Driver Name Role Phone Lita Oseguera Unavailable Unavailable Marija Edgar APRN MACHINE BILLER Primary Care Provider + Chanelle Mccann BENCH ASSEMBLER CNM Unavailab le Kyara De La Fuente RN Unavailable [phone] Marija Edgar APRN MACHINE BILLER Unavailable [phone] Mynor Broussard MD Unavailable [phone] Keisha Dotson MD Unavailable Stacey Briones PHOTOTYPESETTING EQUIPMENT MONITOR Unavailable [phone] Galo Burrell MD Unavailable Unavailable Lesley Guillermo CHW Unavailable Meredith Bedoya Unavailable Unavailable Cristina Wood Unavailable Diana Desir [facility] Unavailable Rain Galaviz PA-C Unavailable Summer Lara MD Unavailable [phone] Summer Lara MD Unavailable [phone] Summer Lara MD Unavailable [phone] Tavia Wyatt MD Unavailable [phone] Johnny Murillo MD Unavailable +1- Erica Farrell BENCH ASSEMBLER MACHINE BILLER Unavailable Vikas Teresita Watson [facility] Unavailable Tavia Wyatt MD Unavailable [phone] Diana Desir [facility] Unavailable [phone] Rich Barrett MD Unavailable Neil Kent MD Unavailable Roney Story DPM Unavailable [phone] Erica Farrell BENCH ASSEMBLER MACHINE BILLER Unavailable Diana Desir [facility] Unavailable [phone] Jelena David Unavailable Galo Burrell MD Unavailable Unavailable Livan Sharif MD Unavailable + Livan Sharif MD Unavailable + Catherine Cm MD Unavailable + Valery Veronica PA-C Unavailable [phone] Catherine Cm MD Unavailable + Johnny Murillo MD Unavailable +1- Brea Quinn BENCH ASSEMBLER MACHINE BILLER Unavailable [phone] Brea Quinn BENCH ASSEMBLER MACHINE BILLER Unavailable [phone] Jose Francisco Johnson MD Unavailable Livan Sharif MD Unavailable + Catherine Cm MD Unavailable + Sydnie Martinez RN Unavailable Unavailable Alfonso Renteria MD Unavailable [phone] [place], Esha M PA-C Primary Care Provider [phone] Cheng Todd PA-C Unavailable [phone] Radha Lomeli APRN MACHINE BILLER Unavailable Jelena David OD Unavailable Pao Joseph RN Unavailable Unavailable Esha Grimm PA-C Unavailable [phone] Valery Veronica PA-C Unavailable [phone] Rey Tay MD Unavailable Rocky Zepeda DO Unavailable Philip Dumont MD Unavailable Meredith Carrera PA-C Unavailable [phone] Neil Kent MD Unavailable Juan Pablo Emmanuel MD Unavailable [phone] Audrey Waite PA-C Unavailable JeremíasValery damon PA-C Unavailable Herminia Hatch MD Unavailable Encounter Details Date Type Department Care Team (Late st Contact Info) Description 10/24/2020 MyC Medical Advice [address] [phone] Marija Edgar APRN MACHINE BILLER [address] [place] [address] Social History Tobacco Use Types [...] do you attend chur or caodaism services? More than 4 times per year [...] Answer Date Recorded PHQ-2 Score 3 09/29/2020 [facility] of Occupat ional Health [...] PM CDT Legal Sex Female 4:13 AM CORE DRIER Gender Identity Female 03/02/2021 5:45 PM CDT [...] 11:44 AM CDT Replied to patient via CAD Besthart. Anthony Doe PA-C on 10/27/2020 at 11:54 AM documented in this encounter Plan of Treatment Upcoming Encounters Date Type Department Care Team (Late st Contact Info) Description 10/23/2024 9:30 AM CDT Office Visit [facility] Neurology [facility] [address] [facility], [address] [place] [address] [place] [address] [address] [place] [address] Johnny Penn MD 3824 [facility] [place] [address] documented as of this encounter Visit Diagnoses Not on filedocumented in this encounter Additional Health Concerns Infection Onset Date Last Indicated Resolved Time Rule Out COVID-19 11/05/2020 11/05/2020 11/06/2020 1:09 PM CDT Rule Out COVID-19 05/11/2021 05/11/2021 05/13/2021 10:18 AM CDT Rule Out COVID-19 07/13/2021 07/13/2021 07/14/2021 3:04 PM CORE DRIER Rule Out COVID-19 07/18/2021 07/18/2021 07/20/2021 1:56 PM CORE DRIER COVID-19 07/18/2021 07/18/2021 08/08/2021 11:3 9 PM CORE DRIER Rule Out COVID-19 12/18/2021 12/18/2021 12/19/2021 11:34 AM CDT Rule Out COVID-19 02/24/2022 02/24/2022 02/25/2022 1:08 PM CDT Rule Out COVID-19 04/26/2022 04/26/2022 04/26/2022 6:47 AM CDT Rule Out COVID-19 05/17/2022 05/17/2022 05/17/2022 10:20 PM CORE DRIER Rule Out COVID-19 06/09/2022 06/09/2022 06/09/2022 9:35 AM CORE DRIER COVID-19 06/09/2022 06/09/2022 06/30/2022 11:4 1 PM CORE DRIER Rule Out COVID-19 11/10/2022 11/10/2022 11/11/2022 12:17 PM CDT Rule Out COVID-19 03/07/2023 03/07/2023 03/07/2023 1:20 PM CDT Rule Out COVID-19 12/26/2023 12/26/2023 12/26/2023 9:50 AM CDT Rule Out COVID-19 04/09/2024 04/09/2024 04/10/2024 6:48 PM CDT Assessment Noted Time PHQ-9 Depression Total Score: 6 09/30/19 3:25 PM CDT documented as of this encounter Care Teams Sprinkler Truck Driver Relationship Specialty Start Date End Date Marija Edgar APRN MACHINE BILLER PCP - General Nurse Practitioner 04/30/20 04/14/23 Esha Grimm PA-C [address] [place] [phone] PCP - General Family Medicine 05/04/23 Lita Oseguera Personal Advocate & Liaison (PAL) 02/28/20 03/27/23 Chanelle Mccann APRN CNM [address] [place] [address] [phone] Assigned OBGYN Provider 05/02/2005/09 Kyara De La Fuente, VJ Specialty Professor Of Mathematics Neurology 06/04/20 03/05/21 Marija Edgar APRN MACHINE BILLER Assigned PCP 06/08/20 04/29/23 Mynor Broussard MD 6363 [facility] [address] 500 [place] [address] Assigned Surgical Provider 06/01/20 11/28/21 Keisha Dotson MD 909 [place], [place] 440095 Assigned Neuroscience Provider 06/04/20 04/01/23 Stacey Briones, [facility] Lead Professor Of Mathematics Primary Care - CC 08/11/2012/30 Galo Burrell MD Assigned Heart and Vascular Provider 10/05/20 04/02/22 Lesley Guillermo, [facility] Community Health Worker 10/23/2012/30 Meredith Bedoya Financial Resource Worker 10/23/20 11/23/20 Cristina Wood Financial Resource Worker 02/09/21 02/09/21 Diana Desir, [facility] [address] [place], [place] [address] Pharmacist Pharmacist 04/17/21 Rain Galaviz PA-C [address] [place] [address] [address] [place] [phone] Physician Child Support Case Officer Dermatology 04/28/21 Summer Lara MD 606 [facility] [address] [place], [place] 121044 Assigned OBGYN Provider 05/10/2105/23 Summer Lara MD [address] [place] [address] 028634 Assigned OBGYN Provider 05/31/21 Summer Lara MD [address] [place] [address] Assigned OBGYN Provider 05/24/2105/30 Tvaia Wyatt MD [address] [place] [address] 396804 Dermatology 07/14/21 Johnny Murillo MD [facility]2 [address] [place] [address] Assigned Musculoskeletal Provider 08/30/21 03/17/22 Erica Farrell APRN [facility] 6405 [facility] [address] [place] [address] Nurse Practitioner Cardiovascular Disease 09/09/21 Teresita Bean [facility] [address] [place], [place] [phone] Pharmacist Pharmacist 09/24/21 09/29/21 Tavia Wyatt MD [address] [place], [place] [id number] Assigned Surgical Provider 11/29/21 05/07/22 Diana Desir, [facility] 30[address] [facility] [address] Assigned MTM Pharmacist 01/02/22 Rich Barrett MD [address] 942105 Physician Ophthalmology 01/21/22 Neil Kent MD 500 [place], [place] 738575 Dermatology 02/24/22 Roney Story DPM [address] [facility] 300 [place] [address] Assigned Musculoskeletal Provider 03/20/22 08/13/22 Erica Farrell APRN MACHINE BILLER 1700 [place] [address] Assigned Heart and Vascular Provider 04/03/22 04/16/22 Diana Desir [facility] 3033 [place] [address] Assigned MTM Pharmacist 04/07/22 Jelena David OD [address] [place] [address] Assigned Surgical Provider 05/08/22 10/08/22 Galo Burrell MD Assigned Heart and Vascular Provider 04/17/22 06/11/22 Livan Sharif MD [address] [facility] [address] [place] [address] Cardiovascular Disease 05/14/22 Livan Sharif MD [address], [facility] [address] [place] [address] Assigned Heart and Vascular Provider 06/12/22 07/23/22 Catherine Cm MD [address] [facility]00 [place] 245865 Cardiovascular Disease 07/21/22 Valery Veronica, PAUcheC [address] [place] [address] 435225 Physician Child Support Case Officer Dermatology 07/21/22 Catherine Cm MD [address] [facility]00 [place] 080335 Assigned Heart and Vascular Provider 07/24/22 11/05/22 Johnny Murillo MD [facility]2 [address] 897514 Assigned Musculoskeletal Provider 08/14/22 10/08/22 Brea Quinn APRN MACHINE BILLER [address] [place] [address] [phone] Nurse Practitioner Dermatology 09/21/22 Brea Quinn APRN MACHINE BILLER [address] [place] [address] [place] 803442 Assigned Surgical Provider 10/09/22 05/01/24 [place] [address] [place] [address] [place] [phone] Assigned Musculoskeletal Provider 10/09/22 05/01/24 Livan Sharif MD [address], [facility] [address] [place] [address]765 Assigned Heart and Vascular Provider 11/06/22 11/12/22 Catherine Cm MD [address] [facility] [address] [place] [address] Assigned Heart and Vascular Provider 11/13/22 05/27/23 Sydnie Martinez, RN Personal Advocate & Liaison (PAL) Family Medicine 03/28/23 07/31/23 Alfonso Renteria MD 5775 [facility] 200 [place] [address] Assigned Neuroscience Provider 04/02/23 Cheng Todd PA-C [address] [place] [address] [phone] Assigned PCP 04/30/23 07/15/23 Radha Lomeli APRN MACHINE BILLER [address] [place] [address] Assigned Heart and Vascular Provider 05/28/23 Jelena David OD [facility] [place] [address] Ophthalmology 06/15/23 Pao Joseph, VJ Personal Advocate & Liaison (PAL) Nurse 08/01/23 11/07/23 Esha Grimm PAUcheC [address] [place] [phone] Assigned PCP 07/16/23 Valery Veronica PA-C [address] [place], [place] 197085 Physician Child Support Case Officer Dermatology 09/19/23 Rey Tay MD 9 [place], [place] 829855 MD Gastroenterology 09/20/23 Rocky Zepeda DO 500 [place], [place] 027055 Physician Gastroenterology 09/20/23 Philip Dumont MD [address] [place] [address] 241835 Physician Ophthalmology 09/22/23 Meredith [place] PA-C 9 [place], [place] 095735 Assigned Gastroenterology Provider 11/01/23 Neil Kent MD [address] [address] Dermatology 11/02/23 [place] [address] [address] [facility] [place] [address] Neurological Surgery 12/26/23 Audrey Waite PA-C 500 [place] [address] Physician Child Support Case Officer Dermatology 02/28/24 Valery Veronica PA-C [id number] [place] [address] Physician Child Support Case Officer Dermatology 04/10/24 Herminia Hatch MD [address] [place] [address] Assigned Rheumatology Provider 07/02/24 documented as of this encounter
--- OUTSIDE RECORDS SUMMARY | 2024-08-28 18:20 | XMS_ITS | Clinical Summary ---
Author Organization [facility] Address [address] [place] [address] Care Team Providers Care Rpg Developer Name Role Phone Diana Desir [facility] Unavailable Rain Galaviz PAUcheC Unavailable [phone] Tavia Wyatt MD Unavailable Erica Farrell CREATIVE CONSULTANT TOOL DESIGN ENGINEER Unavailable Rich Barrett MD Unavailable [phone] Neil Kent MD Unavailable Kendrick Desirelle Stanislav [facility] Unavailable Livan Sharif MD Unavailable Catherine Cm MD Unavailable + Valery Veronica-C Unavailable [phone] Brea Quinn CREATIVE CONSULTANT TOOL DESIGN ENGINEER Unavailable Alfonso Renteria MD Unavailable [phone] Esha GrimmC Primary Care Provider Radha Lomeli CREATIVE CONSULTANT TOOL DESIGN ENGINEER Unavailable Jelena David OD Unavailable [place], Esha M PA-C Unavailable [phone] Valery Veroncia PA-C Unavailable [phone] Rey Tay MD Unavailable Duane Rockyanne STEVENS Unavailable Philip Dumont MD Unavailable Meredith Carrera PA-C Unavailable Neil Kent MD Unavailable Juan Pablo Emmanuel MD Unavailable Audrey Waite PA-C Unavailable [phone] Valery Veronica PA-C Unavailable [phone] Herminia Hatch MD Unavailable Allergies Active Allergy [...] healed then stop 80 g 4 Active Hospital, Clinic, or Other Facility Administered Medication [...] available in ED consider consultation with ED Milk Handler. Relevant Medical History (at time Care Plan [...] to initiation of Care Plan: 11 Total [facility] Hospital Admissions in 12 months prior to initiation of Care Plan: 0 (she has technically had 2 admissions due to related issues with OBGYN) Expected home rescue plan: Metoprolol 12.5mg PRN PCP: Marija Edgar APRN CNP - Family Medicine - [facility] Specialists: Dr. Galo Burrell - Cardiology - [facility] [place] Dr. 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 (04/17/2021): 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 KALYN (generalized anxiety disorder) 09/29/2020 Right ureteral stone 05/27/2020 Overview (05/27/2020): Added automatically from request for surgery [id number] Left ureteral stone 05/27/2020 Overview (05/27/2020): Added automatically from request for surgery [id number] Head ache 02/18/2020 Seizure 05/02/2019 Depressed 05/02/2019 Anxiety 05/02/2019 Tobacco abuse counseling 05/02/2019 Psoriasis 05/02/2019 Resolved Problems Problem Noted Date Diagnosed Date Resolved Date Neck pain 08/25/2022 06/29/2024 Lower back pain 08/25/2022 08/17/2023 Term 01/13/2021 10/11/2022 Encounter for triage in patient 12/09/2020 04/18/2023 Asthma 06/04/2020 02/07/2024 Encounters Date Type Department Care Team Description 08/27/2024 9:06 PM CENTRAL SUPPLY TECHNICIAN - 08/27/2024 10:09 PM CENTRAL SUPPLY TECHNICIAN Emergency [facility] Emergency Dept [address] [place] [address] Fady Vega MD Palpitations Discharge Disposition: Home or Self Care 08/27/2024 Travel 08/16/2024 10:40 AM CENTRAL SUPPLY TECHNICIAN Virtual Visit [address] [place] [phone] Fabiano Correa NP Palpitations (Primary Dx) 08/16/2024 Orders Only (auto-released) [address] [place] [phone] Fabiano Correa NP Palpitations 08/06/2024 Travel 08/03/2024 2:45 PM CENTRAL SUPPLY TECHNICIAN Office [facility] [address] [place] [phone] Jaron Hager PA-C Abdominal discomfort (Primary Dx); Chest discomfort; Screen for STD (sexually transmitted disease) 08/03/2024 Travel 07/27/2024 5:10 PM CENTRAL SUPPLY TECHNICIAN Office [facility] [id number] [place] [phone] Amaris Pascal PA-C Chest tightness (Primary Dx) 07/27/2024 Travel 07/17/2024 12:30 PM CENTRAL SUPPLY TECHNICIAN E-Visit [facility] [address] [place] [phone] Esha Grimm PA-C Bacterial vaginosis (Primary Dx) 07/16/2024 MyC Medical Advice [address] [phone] Esha Grimm PA-C Patient Request for Note/Letter; Medicatio... 07/12/[address] [facility] Neurology [address] [phone] Johnny Penn MD Appointment 06/21/2024 4:30 PM CENTRAL SUPPLY TECHNICIAN Lab [facility] [address] [place] [phone] Vaginal discharge; Screen for STD (sexually transmitted disease) 06/21/2024 Travel 06/21/2024 MyC Medical Advice [address] [phone] Antonella Eldridge RN 06/21/[address] [facility] Neurology [address], [address] [place] [phone] Johnny Penn MD Previsit 06/20/[address] [facility] Heart [address] [place] [phone] Carley Myles, VJ 06/20/[address] [phone] [place], Brea P, CREATIVE CONSULTANT TOOL DESIGN ENGINEER Refill Request (Tacrolimus 0.1% ointment & Triamcinolone 0.1% ointment) 06/20/[address] [facility] Heart [facility] [address] [facility] [address] [place] [phone] Radha Lomeli, ARLENE TOOL DESIGN ENGINEER Call Back 06/08/2024 Telephone [facility] [address] [place] [phone] Esha Grimm PA-C Medication Question 06/06/2024 Orders Only [facility] [address] [place] [address] Outside, Provider 06/05/2024 5:15 PM CENTRAL SUPPLY TECHNICIAN Office [facility] [place] [address] [place] [phone] Jaron Hager PA-C Lymphadenopathy (Primary Dx); Chest pain, unspecified type 06/05/2024 Travel 06/05/2024 MyC Medical Advice [address] [phone] Herminia Hatch MD 05/31/2024 4:30 PM CENTRAL SUPPLY TECHNICIAN Lab [facility] Laboratory [facility] [place] [phone] Psoriatic arthritis (H); Tuberculosis screening; Encounter for hepatitis C screening test for low risk patient 05/31/2024 3:30 PM CENTRAL SUPPLY TECHNICIAN Office Visit [address] [phone] Audrey Díaz PA-C Khan, Waseem, MD Psoriatic arthritis (H) (Primary Dx); Psoriasis; Chronic bilateral low back pain without sciatica; Encounter to discuss treatment options; Tuberculosis screening; Need for hepatitis B screening test; Encounter for hepatitis C screening test for low risk patient 05/31/2024 Travel 05/28/2024 Travel from Last 3 Months Immunizations Name [...] Answer Date Recorded PHQ-2 Score 1 02/07/2024 [facility] [place] [facility] - Occupational Stress [...] exercise at this level? 20 min 05/07/2024 Sharon Depression Scale Answer Date Recorded Sharon [...] Sign Reading Time Taken Comments Blood Pressure 112/61 08/27/2024 10:08 PM CENTRAL SUPPLY TECHNICIAN Pulse 82 08/27/2024 10:08 PM CENTRAL SUPPLY TECHNICIAN Temperature 36.7 C (98.1 F) 08/27/2024 8:38 PM CENTRAL SUPPLY TECHNICIAN Respiratory Rate 18 08/27/2024 8:38 PM CENTRAL SUPPLY TECHNICIAN Oxygen Saturation 98% 08/27/2024 10: 08 PM CENTRAL SUPPLY TECHNICIAN Inhaled Oxygen Concentration - - Weight 93.4 kg (205 lb 14.6 oz) 08/27/2024 8:38 PM CENTRAL SUPPLY TECHNICIAN Height 167.6 cm (5' 6) 08/27/2024 8:38 PM CENTRAL SUPPLY TECHNICIAN Body Mass Index 33.23 08/27/2024 8:38 PM CENTRAL SUPPLY TECHNICIAN Plan of Treatment Upcoming Encounters Date Type Department Care Team (Late st Contact Info) Description 10/23/2024 9:30 AM CDT Office Visit [facility] Neurology [address], [address] [place] [phone] [place] [address] [address] [place] [phone] Johnny Penn MD [address] [facility] [place] [address] Health Maintenance Due Date Last Done [...] 03/10/2023, 09/22/2021, Additional history exists CHLAMYDIA SCREENING 08/03/2025 08/03/2024, 06/21/2024, 05/01/2024, Additional history exists PAP 04/10/2027 05/01/2024, 09/22/2021 ADVANCE CARE PLANNING 05/08/2029 05/08/2024 DTAP/TDAP/TD IMMUNIZATION (8 - Td or Tdap) 11/11/2030 11/11/2020, 08/10/2011, 11/23/2004, Additional history exists ZOSTER IMMUNIZATION (1 of 2) 2050 HEPATITIS B IMMUNIZATION Completed 002, 08/07/2001, 03/28/2001, Additional history exists HPV IMMUNIZATION Completed 03/01/2012, , 08/10/2011 MENINGITIS IMMUNIZATION Completed 05/16/2017, 08/10 DEPRESSION ACTION PLAN Completed 04/17/2021, 2020 HEPATITIS C SCREENING Completed 08/03/2024 , 05/31/2024, 12/21/2023, Additional history exists HIV SCREENING Completed 08/03/2024, 06/10, 2024, Additional history exists MENINGITIS B IMMUNIZATION Aged Out No longer eligible based on patient's age to complete this topic Procedures Procedure Name Priority Date/Time Associated Diagnosis Comments CBC WITH PLATELETS & DIFFERENTIAL STAT 08/27/2024 9:19 PM CENTRAL SUPPLY TECHNICIAN CBC WITH PLATELETS AND DIFFERENTIAL STAT 08/27/2024 9:19 PM CENTRAL SUPPLY TECHNICIAN EXTRA RED TOP TUBE STAT 08/27/2024 9: 19 PM CENTRAL SUPPLY TECHNICIAN EXTRA BLUE TOP TUBE STAT 08/27/2024 9 :19 PM CENTRAL SUPPLY TECHNICIAN TROPONIN T, HIGH SENSITIVITY STAT 08/27/2024 9:19 PM CENTRAL SUPPLY TECHNICIAN BASIC METABOLIC PANEL STAT 08/27/2024 9:19 PM CENTRAL SUPPLY TECHNICIAN EXTRA TUBE STAT 08/27/2024 9:19 PM CENTRAL SUPPLY TECHNICIAN EKG 12-LEAD, TRACING ONLY STAT 08/27/2024 8:48 PM CENTRAL SUPPLY TECHNICIAN HEPATITIS B CORE ANTIBODY Routine 08/03/2024 3:04 PM CENTRAL SUPPLY TECHNICIAN Screen for STD (sexually transmitted disease) HEPATITIS C ANTIBODY Routine 08/03/2024 3:04 PM CENTRAL SUPPLY TECHNICIAN Screen for STD (sexually transmitted disease) TREPONEMA ABS W REFLEX TO RPR AND TITER Routine 08/03/2024 3:04 PM CENTRAL SUPPLY TECHNICIAN Screen for STD (sexually transmitted disease) HIV ANTIGEN ANTIBODY COMBO Routine 08/03/2024 3:04 PM CENTRAL SUPPLY TECHNICIAN Screen for STD (sexually transmitted disease) CHLAMYDIA TRACHOMATIS/NEISSERIA GONORRHOEAE BY PCR Routine 08/03/2024 2:28 PM CENTRAL SUPPLY TECHNICIAN Abdominal discomfort WET PREPARATION Routine 08/03/2024 2:16 PM CENTRAL SUPPLY TECHNICIAN Abdominal discomfort UA MACROSCOPIC WITH REFLEX TO MICRO AND CULTURE Routine 08/03/2024 2:15 PM CENTRAL SUPPLY TECHNICIAN Abdominal discomfort EKG 12-LEAD COMPLETE W/READ - CLINICS Routine 08/03/2024 Chest discomfort NEISSERIA GONORRHOEAE PCR Routine 06/21/2024 4:22 PM CENTRAL SUPPLY TECHNICIAN Screen for STD (sexually transmitted disease) CHLAMYDIA TRACHOMATIS PCR Routine 06/21/2024 4:22 PM CENTRAL SUPPLY TECHNICIAN Screen for STD (sexually transmitted disease) WET PREPARATION Routine 06/21/2024 4:22 PM CENTRAL SUPPLY TECHNICIAN Vaginal discharge TREPONEMA ABS W REFLEX TO RPR AND TITER Routine 06/21/2024 4:22 PM CENTRAL SUPPLY TECHNICIAN Screen for STD (sexually transmitted disease) HIV ANTIGEN ANTIBODY COMBO Routine 06/21/2024 4:22 PM CENTRAL SUPPLY TECHNICIAN Screen for STD (sexually transmitted disease) HLA RESULT REPORT 06/06/2024 2:0 4 PM CENTRAL SUPPLY TECHNICIAN GROUP A STREPTOCOCCUS PCR THROAT SWAB Routine 06/05/2024 6:28 PM CENTRAL SUPPLY TECHNICIAN Lymphadenopathy STREPTOCOCCUS A RAPID SCREEN W REFELX TO PCR Routine 06/05/2024 6:28 PM CENTRAL SUPPLY TECHNICIAN Lymphadenopathy EKG 12-LEAD COMPLETE W/READ - CLINICS Routine 06/05/2024 Lymphadenopathy QUANTIFERON-TB GOLD PLUS Routine 05/31/2024 4:44 PM CENTRAL SUPPLY TECHNICIAN Psoriatic arthritis (H) Tuberculosis screening Encounter for hepatitis C screening test for low risk patient QUANTIFERON TB GOLD PLUS Routine 05/31/2024 4:44 PM CENTRAL SUPPLY TECHNICIAN Psoriatic arthritis (H) Tuberculosis screening Encounter for hepatitis C screening test for low risk patient QUANTIFERON TB GOLD PLUS PURPLE TUBE Routine 05/31/2024 4:44 PM CENTRAL SUPPLY TECHNICIAN Psoriatic arthritis (H) Tuberculosis screening Encounter for hepatitis C screening test for low risk patient QUANTIFERON TB GOLD PLUS YELLOW TUBE Routine 05/31/2024 4:44 PM CENTRAL SUPPLY TECHNICIAN Psoriatic arthritis (H) Tuberculosis screening Encounter for hepatitis C screening test for low risk patient QUANTIFERON TB GOLD PLUS GREEN TUBE Routine 05/31/2024 4:44 PM CENTRAL SUPPLY TECHNICIAN Psoriatic arthritis (H) Tuberculosis screening Encounter for hepatitis C screening test for low risk patient QUANTIFERON TB GOLD PLUS GIL TUBE Routine 05/31/2024 4:44 PM CENTRAL SUPPLY TECHNICIAN Psoriatic arthritis (H) Tuberculosis screening Encounter for hepatitis C screening test for low risk patient RHEUMATOID FACTOR Routine 05/31/2024 4:4 3 PM CENTRAL SUPPLY TECHNICIAN Psoriatic arthritis (H) Tuberculosis screening Encounter for hepatitis C screening test for low risk patient CYCLIC CITRULLINATED PEPTIDE ANTIBODY IGG Routine 05/31/2024 4:43 PM CENTRAL SUPPLY TECHNICIAN Psoriatic arthritis (H) Tuberculosis screening Encounter for hepatitis C screening test for low risk patient HEPATITIS C ANTIBODY Routine 05/31/2024 4:42 PM CENTRAL SUPPLY TECHNICIAN Psoriatic arthritis (H) Tuberculosis screening Encounter for hepatitis C screening test for low risk patient HEPATITIS B SURFACE ANTIGEN Routine 05/31/2024 4:42 PM CENTRAL SUPPLY TECHNICIAN Psoriatic arthritis (H) Tuberculosis screening Encounter for hepatitis C screening test for low risk patient HEPATITIS B SURFACE ANTIBODY Routine 05/31/2024 4:42 PM CENTRAL SUPPLY TECHNICIAN Psoriatic arthritis (H) Tuberculosis screening Encounter for hepatitis C screening test for low risk patient HEPATITIS B CORE ANTIBODY Routine 05/31/2024 4:42 PM CENTRAL SUPPLY TECHNICIAN Psoriatic arthritis (H) Tuberculosis screening Encounter for hepatitis C screening test for low risk patient ERYTHROCYTE SEDIMENTATION RATE AUTO Routine 05/31/2024 4:42 PM CENTRAL SUPPLY TECHNICIAN Psoriatic arthritis (H) Tuberculosis screening Encounter for hepatitis C screening test for low risk patient CRP INFLAMMATION Routine 05/31/2024 4:42 PM CENTRAL SUPPLY TECHNICIAN Psoriatic arthritis (H) Tuberculosis screening Encounter for hepatitis C screening test for low risk patient HLA-B27 TYPING Routine 05/31/2024 4:41 PM CENTRAL SUPPLY TECHNICIAN Psoriatic arthritis (H) Tuberculosis screening Encounter for hepatitis C screening test for low risk patient GYNECOLOGIC CYTOLOGY Routine 09/22/2021 3:14 PM CDT Encounter for screening for cervical cancer from Last 3 Months or Most Recently Relevant to Health Maintenance Results * Extra Red Top Tube (08/27/2024 9:19 PM CENTRAL SUPPLY TECHNICIAN) Hold Specimen [facility] 08/27/2024 10:31 PM CENTRAL SUPPLY TECHNICIAN [facility] Blood STRUCTURE OF RIGHT UPPER LIMB / Unknown Venipuncture / Unknown 08/27/2024 9:19 PM CENTRAL SUPPLY TECHNICIAN 08/27/2024 9:23 PM CENTRAL SUPPLY TECHNICIAN Fady Vega MD LAB - BLOOD ORDERABLES Fi nal Result [facility] [address] Lab (1st floor, no room number) [address] * Extra Blue Top Tube (08/27/2024 9:19 PM CENTRAL SUPPLY TECHNICIAN) Hold Specimen [facility] 08/27/2024 10:31 PM CENTRAL SUPPLY TECHNICIAN [facility] Blood STRUCTURE OF RIGHT UPPER LIMB / Unknown Venipuncture / Unknown 08/27/2024 9:19 PM CENTRAL SUPPLY TECHNICIAN 08/27/2024 9:23 PM CENTRAL SUPPLY TECHNICIAN Fady Vega MD LAB - BLOOD ORDERABLES Fi nal Result Performing Organization Address City/[facility]/ZIP Co de Phone Number [facility] [address] Lab (1st floor, no room number) [address] * (ABNORMAL) CBC with platelets and differential (08/27/2024 9:19 PM CENTRAL SUPPLY TECHNICIAN) Pathologist [facility] WBC Count 8.7 4.0 - 11.0 10e3/uL 08/27/2024 9:26 PM CENTRAL SUPPLY TECHNICIAN [facility] RBC Count 4.59 3.80 - 5.20 10e6/uL 08/27/2024 9:26 PM CENTRAL SUPPLY TECHNICIAN [facility] Hemoglobin 11.7 11.7 - 15.7 g/dL 08/27/2024 9:26 PM CENTRAL SUPPLY TECHNICIAN [facility] Hematocrit 36.7 35.0 - 47.0 % 08/27/2024 9:26 PM CENTRAL SUPPLY TECHNICIAN [facility] MCV 80 78 - 100 fL 08/27/2024 9:26 PM CENTRAL SUPPLY TECHNICIAN [facility] MCH 25.5(L) 26.5 - 33.0 pg 08/27/2024 9:26 PM CENTRAL SUPPLY TECHNICIAN [facility] MCHC 31.9 31.5 - 36.5 g/dL 08/27/2024 9:26 PM CENTRAL SUPPLY TECHNICIAN [facility] RDW 12.6 10.0 - 15.0 % 08/27/2024 9:26 PM CENTRAL SUPPLY TECHNICIAN [facility] Platelet Count 252 150 - 450 10e3/uL 08/27/2024 9:26 PM CENTRAL SUPPLY TECHNICIAN [facility] % Neutrophils 64 % 08/27/2024 9:26 PM CENTRAL SUPPLY TECHNICIAN [facility] % Lymphocytes 26 % 08/27/2024 9:26 PM CENTRAL SUPPLY TECHNICIAN [facility] % Monocytes 6 % 08/27/2024 9:26 PM CENTRAL SUPPLY TECHNICIAN [facility] % Eosinophils 4 % 08/27/2024 9:26 PM CENTRAL SUPPLY TECHNICIAN [facility] % Basophils 1 % 08/27/2024 9:26 PM CENTRAL SUPPLY TECHNICIAN [facility] % Immature Granulocytes 0 % 08/27/2024 9:26 PM CENTRAL SUPPLY TECHNICIAN [facility] NRBCs per 100 WBC 0 <1 /100 025 9:26 PM CENTRAL SUPPLY TECHNICIAN [facility] Absolute Neutrophils 5.5 1.6 - 8.3 10e3/uL 08/27/2024 9:26 PM CENTRAL SUPPLY TECHNICIAN [facility] Absolute Lymphocytes 2.3 0.8 - 5.3 10e3/uL 08/27/2024 9:26 PM CENTRAL SUPPLY TECHNICIAN [facility] Absolute Monocytes 0.5 0.0 - 1.3 10e3/uL 08/27/2024 9:26 PM CENTRAL SUPPLY TECHNICIAN [facility] Absolute Eosinophils 0.3 0.0 - 0.7 10e3/uL 08/27/2024 9:26 PM CENTRAL SUPPLY TECHNICIAN [facility] Absolute Basophils 0.1 0.0 - 0.2 10e3/uL 08/27/2024 9:26 PM CENTRAL SUPPLY TECHNICIAN [facility] Absolute Immature Granulocytes 0.0 <=0.4 10e3/uL 08/27/2024 9:26 PM CENTRAL SUPPLY TECHNICIAN [facility] Absolute NRBCs 0.0 10e3/uL 08/27/2024 9:26 PM CENTRAL SUPPLY TECHNICIAN [facility] Blood STRUCTURE OF RIGHT UPPER LIMB / Unknown Venipuncture / Unknown 08/27/2024 9:19 PM CENTRAL SUPPLY TECHNICIAN 08/27/2024 9:23 PM CENTRAL SUPPLY TECHNICIAN us Fady Vega MD LAB - BLOOD ORDERABLES Fi nal Result [facility] [address] Lab (1st floor, no room number) [place] [address] * Troponin T, High Sensitivity (08/27/2024 9:19 PM CENTRAL SUPPLY TECHNICIAN) Pathologist [facility] Troponin T, High Sensitivity <6 <=14 ng/L 08/27/2024 9:54 PM CENTRAL SUPPLY TECHNICIAN LABORATORY Comment: Either a High Sensitivity Troponin T baseline (0 hours) value = 100 ng/L, or an increase in High Sensitivity Troponin T = 7 ng/L at 2 hours compared to 0 hours (2-0 hours), suggests myocardial injury, and urgent clinical attention is required. If the 2-0 hours increase is <7 [...] UPPER LIMB / Unknown Venipuncture / Unknown 08/27/2024 9:19 PM CENTRAL SUPPLY TECHNICIAN 08/27/2024 9:23 PM CENTRAL SUPPLY TECHNICIAN us Fady Vega MD LAB - BLOOD ORDERABLES Fi nal Result LABORATORY [facility] [address] Lab (1st floor, no room number) [place] [address] * Basic metabolic panel (BMP) (08/27/2024 9:19 PM CENTRAL SUPPLY TECHNICIAN) Pathologist [facility] Sodium 137 135 - 145 mmol/L 08/27/2024 9:54 PM CENTRAL SUPPLY TECHNICIAN LABORATORY Potassium 3.9 3.4 - 5.3 mmol/L 08/27/2024 9:54 PM CENTRAL SUPPLY TECHNICIAN LABORATORY Chloride 103 98 - 107 mmol/L 08/27/2024 9:54 PM CENTRAL SUPPLY TECHNICIAN LABORATORY Carbon Dioxide (CO2) 23 22 - 29 mmol/L 08/27/2024 9:54 PM CENTRAL SUPPLY TECHNICIAN LABORATORY Anion Gap 11 7 - 15 mmol/L 08/27/2024 9:54 PM CENTRAL SUPPLY TECHNICIAN LABORATORY Urea Nitrogen 12.9 6.0 - 20.0 mg/dL 08/27/2024 9:54 PM CENTRAL SUPPLY TECHNICIAN LABORATORY Creatinine 0.68 0.51 - 0.95 mg/dL 08/27/2024 9:54 PM CENTRAL SUPPLY TECHNICIAN LABORATORY GFR Estimate >90 >60 mL/min/1.7 3m2 08/27/2024 9:54 PM CENTRAL SUPPLY TECHNICIAN LABORATORY Comment:eGFR calculated us2020 CKD-EPI equation. Calcium 9.1 8.8 - 10.4 mg/dL 08/27/2024 9:54 PM CENTRAL SUPPLY TECHNICIAN LABORATORY Glucose 86 70 - 99 mg/dL 08/27/2024 9:54 PM CENTRAL SUPPLY TECHNICIAN LABORATORY Blood STRUCTURE OF RIGHT UPPER LIMB / Unknown Venipuncture / Unknown 08/27/2024 9:19 PM CENTRAL SUPPLY TECHNICIAN 08/27/2024 9:23 PM CENTRAL SUPPLY TECHNICIAN Fady Vega MD LAB - BLOOD ORDERABLES Fi nal Result LABORATORY [facility] Lab [address] Lab (1st floor, no room number) [place] [address] * EKG 12 lead (08/27/2024 8:48 PM CENTRAL SUPPLY TECHNICIAN) Systolic Blood Pressure mmHg RADIOLOGY RESULTS Diastolic Blood Pressure mmHg RADIOLOGY RESULTS Ventricular Rate 80 BPM RAD IOLOGY RESULTS Atrial Rate 80 BPM RADIOLOG Y RESULTS OK Interval 152 ms RADIOLOG Y RESULTS QRS Duration 94 ms RADIOLO GY RESULTS QT 370 ms RADIOLOGY RESULTS QTc 426 ms RADIOLOGY RESULTS P [place] 52 degrees RADIOLOGY RESULTS R AXIS 68 degrees RADIOLOGY RESULTS T [place] 53 degrees RADIOLOGY RESULTS Interpretation ECG Sinus rhythm Normal ECG When compared with ECG of 07-Apr-2024 03:06, No significant change was found Confirmed by - EMERGENCY ROOM, PHYSICIAN ([id number]), international editorial producer RENITA MANZO ([id number]) on 08/28/2024 7:15:42 AM RADIOLOGY RESULTS 08/27/2024 8:48 PM CENTRAL SUPPLY TECHNICIAN 08/28/2024 7:15 AM CENTRAL SUPPLY TECHNICIAN Fady Vega MD ECG ORDERABLES Edited Re sult - Final RADIOLOGY RESULTS * HIV Antigen Antibody Combo Baxter (08/03/2024 3:04 PM CENTRAL SUPPLY TECHNICIAN) Only the most recent of2 resultswithin the time period is included. HIV Antigen Antibody Combo Nonreactive Nonreactive 08/03/2024 9:29 PM CENTRAL SUPPLY TECHNICIAN [facility] Comment:Negative HIV-1 p24 a [...] BLOOD SPECIMEN / Unknown Venipuncture / Unknown 08/03/2024 3:04 PM CENTRAL SUPPLY TECHNICIAN 08/03/2024 3:05 PM CENTRAL SUPPLY TECHNICIAN Jaron Hager PA-C LAB - BLOOD ORDERABLES Final Result Performing Organization Address City/[facility]/ZIP Co de Phone Number LABORATORY [facility] [address] [facility], [address] [address] * Treponema Abs w Reflex to RPR and Titer (08/03/2024 3:04 PM CENTRAL SUPPLY TECHNICIAN) Only the most recent of2 resultswithin the time period is included. Treponema Antibody Total Nonreactive Nonreactive 08/04/2024 10:06 AM CENTRAL SUPPLY TECHNICIAN [facility]/EN DO Blood BLOOD SPECIMEN / Unknown Venipuncture / Unknown 08/03/2024 3:04 PM CENTRAL SUPPLY TECHNICIAN 08/03/2024 3:05 PM CENTRAL SUPPLY TECHNICIAN Jaron Hager PA-C LAB - BLOOD ORDERABLES Final Result [facility]/ENDO [facility]Prot[facility]Endo [facility], Room [address] * Hepatitis C antibody (08/03/2024 3:04 PM CENTRAL SUPPLY TECHNICIAN) Only the most recent of2 resultswithin the time period is included. Hepatitis C Antibody Nonreactive Nonreactive 08/03/2024 8:55 PM CENTRAL SUPPLY TECHNICIAN [facility] Comment:A nonreactive screen ing [...] BLOOD SPECIMEN / Unknown Venipuncture / Unknown 08/03/2024 3:04 PM CENTRAL SUPPLY TECHNICIAN 08/03/2024 3:05 PM CENTRAL SUPPLY TECHNICIAN Jaron Hager PA-C LAB - BLOOD ORDERABLES Final Result Performing Organization Address City/[facility]/ZIP Co de Phone Number [facility], [address] * Hepatitis B core antibody (08/03/2024 3:04 PM CENTRAL SUPPLY TECHNICIAN) Only the most recent of2 resultswithin the time period is included. Hepatitis B Core Antibody Total Nonreactive Nonreactive 08/03/2024 8:55 PM CENTRAL SUPPLY TECHNICIAN [facility] Comment:Nonreactive hepatiti s B core antibody test results indicate the absence of exposure to hepatitis B virus and no evidence of recent, past/resolved, or chronic hepatitis B. Blood BLOOD SPECIMEN / Unknown Venipuncture / Unknown 08/03/2024 3:04 PM CENTRAL SUPPLY TECHNICIAN 08/03/2024 3:05 PM CENTRAL SUPPLY TECHNICIAN Jaron Hager PA-C LAB - BLOOD ORDERABLES Final Result LABORATORY [facility] [address] [facility], [address] [place] [address] * Chlamydia trachomatis/Neisseria gonorrhoeae by PCR (08/03/2024 2:28 PM CENTRAL SUPPLY TECHNICIAN) Pathologist [facility] Chlamydia Trachomatis Negative Negative 08/04/2024 11:14 AM CENTRAL SUPPLY TECHNICIAN [facility] Comment: Negative for C. trachomatis rRNA by dental ceramist helper mediated amplification. A negative result by dental ceramist helper mediated amplification does not preclude the presence of infection because results are dependent on proper and adequate collection, absence of inhibitors and sufficient rRNA to be detected. Neisseria gonorrhoeae Negative Negative 08/04/2024 11:14 AM CENTRAL SUPPLY TECHNICIAN [facility] Comment:Negative for N. gono rrhoeae rRNA by dental ceramist helper mediated amplification. A negative result by dental ceramist helper mediated amplification does not preclude the presence of C. trachomatis infection because results are dependent on proper and adequate collection, absence of inhibitors and sufficient rRNA to be detected. CTNG Specimen Source Vagina 08/04/2024 11:14 AM CENTRAL SUPPLY TECHNICIAN [facility] Swab VAGINAL STRUCTURE / Unknown Non-blood Collection / Unknown 08/03/2024 2:28 PM CENTRAL SUPPLY TECHNICIAN 08/03/2024 2:28 PM CENTRAL SUPPLY TECHNICIAN Mani Gentile MD LAB - MICRO GENERAL ORDERABLES F inal Result [facility] Inf. Diseases Diag. Lab 500 [facility], [address] [place] [address] * (ABNORMAL) Wet preparation (08/03/2024 2:16 PM CENTRAL SUPPLY TECHNICIAN) Only the most recent of2 resultswithin the time period is included. Trichomonas Absent Absent REINA 08/03/2024 2:22 PM CENTRAL SUPPLY TECHNICIAN [facility] Yeast Absent Absent REINA 08/03/2024 2:22 PM CENTRAL SUPPLY TECHNICIAN [facility] Clue Cells Absent Absent REINA 08/03/2024 2:22 PM CENTRAL SUPPLY TECHNICIAN [facility] WBCs/high power field 2+(A) None REINA 08/03/2024 2:22 PM CENTRAL SUPPLY TECHNICIAN [facility] Swab VAGINAL STRUCTURE / Unknown Non-blood Collection / Unknown 08/03/2024 2:16 PM CENTRAL SUPPLY TECHNICIAN 08/03/2024 2:16 PM CENTRAL SUPPLY TECHNICIAN us Mani Gentile MD LAB - MICRO GENERAL ORDERABLES F inal Result Performing Organization Address [facility]/ZIP Co de Phone Number LABORATORY [facility] [address] [facility] Lab (no room number, 1st floor of clinic) [place] [address], [facility] * UA Macroscopic with reflex to Microscopic and Culture (08/03/2024 2:15 PM CENTRAL SUPPLY TECHNICIAN) Color Urine Yellow Colorless, Straw, Light Yellow, Yellow 08/03/2024 2:20 PM CENTRAL SUPPLY TECHNICIAN LABORATORY Appearance Urine Clear Clear 08/03/19 2:20 PM CENTRAL SUPPLY TECHNICIAN LABORATORY Glucose Urine Negative Negative mg/dL 08/03/2024 2:20 PM CENTRAL SUPPLY TECHNICIAN LABORATORY Bilirubin Urine Negative Negative 2:20 PM CENTRAL SUPPLY TECHNICIAN LABORATORY Ketones Urine Negative Negative mg/dL 08/03/2024 2:20 PM CENTRAL SUPPLY TECHNICIAN LABORATORY Specific [place] Urine 1.010 1.003 - 1.035 08/03/2024 2:20 PM CENTRAL SUPPLY TECHNICIAN LABORATORY Blood Urine Negative Negative 08/03/2024 2:20 PM CENTRAL SUPPLY TECHNICIAN LABORATORY pH Urine 7.0 5.0 - 7.0 08/03/2024 2:20 PM CENTRAL SUPPLY TECHNICIAN LABORATORY Protein Albumin Urine Negative Negative mg/dL 08/03/2024 2:20 PM CENTRAL SUPPLY TECHNICIAN LABORATORY Urobilinogen Urine 0.2 0.2, 1.0 E.U./dL 08/03/2024 2:20 PM CENTRAL SUPPLY TECHNICIAN LABORATORY Nitrite Urine Negative Negative 08/03/2024 2:20 PM CENTRAL SUPPLY TECHNICIAN LABORATORY Leukocyte Esterase Urine Negative Negative 08/03/2024 2:20 PM CENTRAL SUPPLY TECHNICIAN LABORATORY Urine URINE SPECIMEN OBTAINED BY CLEAN CATCH PROCEDURE / Unknown Non-blood Collection / Unknown 08/03/2024 2:15 PM CENTRAL SUPPLY TECHNICIAN 08/03/2024 2:15 PM CENTRAL SUPPLY TECHNICIAN Narrative LABORATORY - 08/03/2024 2:20 PM CENTRAL SUPPLY TECHNICIAN Microscopic not indicated us Mani Gentile MD LAB - URINE ORDERABLES Final Res ult LABORATORY [facility] [address] [facility] Lab (no room number, 1st floor of clinic) [place] [address] * EKG 12-lead complete w/read - Clinics (08/03/2024) Only the most recent of2 resultswithin the time period is included. Mani Gentile MD ECG ORDERABLES Final Result * Neisseria gonorrhoeae PCR (06/21/2024 4:22 PM CENTRAL SUPPLY TECHNICIAN) Neisseria gonorrhoeae Negative Negative 06/22/2024 5:48 PM CENTRAL SUPPLY TECHNICIAN [facility] Comment:Negative for N. gono rrhoeae rRNA by dental ceramist helper mediated amplification. A negative result by dental ceramist helper mediated amplification does not preclude the presence of C. trachomatis infection because results are dependent on proper and adequate collection, absence of inhibitors and sufficient rRNA to be detected. Swab VAGINAL STRUCTURE / Unknown Non-blood Collection / Unknown 06/21/2024 4:22 PM CENTRAL SUPPLY TECHNICIAN 06/21/2024 4:36 PM CENTRAL SUPPLY TECHNICIAN Esha Grimm PA-C LAB - MICRO GENERAL ORDERABLES Final Result [facility] Inf. Diseases Diag. Lab [address] [facility], [address] [place] [address] * Chlamydia trachomatis PCR (06/21/2024 4:22 PM CENTRAL SUPPLY TECHNICIAN) Chlamydia trachomatis Negative Negative 06/22/2024 5:48 PM CENTRAL SUPPLY TECHNICIAN [facility] Comment:A negative result by dental ceramist helper mediated amplification does not preclude the presence of C. trachomatis infection because results are dependent on proper and adequate collection, absence of inhibitors and sufficient rRNA to be detected. Swab VAGINAL STRUCTURE / Unknown Non-blood Collection / Unknown 06/21/2024 4:22 PM CENTRAL SUPPLY TECHNICIAN 06/21/2024 4:36 PM CENTRAL SUPPLY TECHNICIAN Esha Grimm PA-C LAB - MICRO GENERAL ORDERABLES Final Result [facility] Inf. Diseases Diag. Lab 500 [facility], [address] [place] [address], [facility] * HLA Result Report (06/06/2024 2:04 PM CENTRAL SUPPLY TECHNICIAN) us Provider Outside LAB - IMMUNOLOGY ORDERABLES Fin al Result * Streptococcus A Rapid Screen w/Reflex to PCR - Clinic Collect (06/05/2024 6:28 PM CENTRAL SUPPLY TECHNICIAN) Pathologist [facility] Strep antigen Negative Negative 06/05/2024 6:50 PM CENTRAL SUPPLY TECHNICIAN [facility] Swab STRUCTURE OF ANTERIOR PORTION OF NECK / Unknown Non-blood Collection / Unknown 06/05/2024 6:28 PM CENTRAL SUPPLY TECHNICIAN 06/05/2024 6:44 PM CENTRAL SUPPLY TECHNICIAN Jaron Hager PA-C LAB - MICRO GENERAL ORD ERABLES Final Result LABORATORY [facility] Lab [address] [facility] Lab (no room number, 1st floor of clinic) [place] [address], [facility] * Group A Streptococcus PCR Throat Swab (06/05/2024 6:28 PM CENTRAL SUPPLY TECHNICIAN) Pathologist [facility] A strep by PCR Not Detected Not Detected 06/06/2024 4:18 PM CENTRAL SUPPLY TECHNICIAN [facility] Swab STRUCTURE OF ANTERIOR PORTION OF NECK / Unknown Non-blood Collection / Unknown 06/05/2024 6:28 PM CENTRAL SUPPLY TECHNICIAN 06/05/2024 6:50 PM CENTRAL SUPPLY TECHNICIAN Narrative [facility] - 06/06/2024 4:18 PM CENTRAL SUPPLY TECHNICIAN The Xpert Xpress Strep A test, performed on the [employer], is a rapid, qualitative in [...] Final Result [facility] Inf. Diseases Diag. Lab 500 [facility], [address] * Quantiferon TB Gold Plus (05/31/2024 4:44 PM CENTRAL SUPPLY TECHNICIAN) Quantiferon-TB Gold Plus Negative Negative 06/02/2024 9:45 AM CENTRAL SUPPLY TECHNICIAN SPECIALTY CORE/PROT/END O Comment: No interferon [...] Nil Value -0.05 IU/mL 06/02/2024 9:45 AM CENTRAL SUPPLY TECHNICIAN SPECIALTY CORE/PROT/END O TB2 Ag minus Nil Value 0.05 IU/mL 06/02/2024 9:45 AM CENTRAL SUPPLY TECHNICIAN SPECIALTY CORE/PROT/END O Mitogen minus Nil Result 9.73 IU/mL 06/02/2024 9:45 AM CENTRAL SUPPLY TECHNICIAN SPECIALTY CORE/PROT/END O Nil Result 0.27 IU/mL 06/02/2024 9:45 AM CENTRAL SUPPLY TECHNICIAN SPECIALTY CORE/PROT/END O Blood BLOOD SPECIMEN / Unknown Venipuncture / Unknown 05/31/2024 4:44 PM CENTRAL SUPPLY TECHNICIAN 05/31/2024 4:44 PM CENTRAL SUPPLY TECHNICIAN Herminia Hatch MD LAB - MICRO GENERAL ORDERABLES F inal Result SPECIALTY CORE/PROT/ENDO Specialty Core/Prot/Endo 500 [facility], [address] * Quantiferon TB Gold Plus Purple Tube (05/31/2024 4:44 PM CENTRAL SUPPLY TECHNICIAN) Quantiferon Mitogen 10.00 IU/mL 06/02/2024 9:11 AM CENTRAL SUPPLY TECHNICIAN UM SPECIALTY CORE/PROT/ENDO Blood BLOOD SPECIMEN / Unknown Venipuncture / Unknown 05/31/2024 4:44 PM CENTRAL SUPPLY TECHNICIAN 05/31/2024 4:44 PM CENTRAL SUPPLY TECHNICIAN us Herminia Hatch MD LAB - MICRO GENERAL ORDERABLES F inal Result UM SPECIALTY CORE/PROT/ENDO UM Specialty Core/Prot/Endo 500 [facility] [address], [address] * Quantiferon TB Gold Plus Yellow Tube (05/31/2024 4:44 PM CENTRAL SUPPLY TECHNICIAN) Quantiferon TB2 Tube 0.32 06/02/2024 9:11 AM CENTRAL SUPPLY TECHNICIAN UM SPECIALTY CORE/PROT/ENDO Blood BLOOD SPECIMEN / Unknown Venipuncture / Unknown 05/31/2024 4:44 PM CENTRAL SUPPLY TECHNICIAN 05/31/2024 4:44 PM CENTRAL SUPPLY TECHNICIAN us Herminia Hatch MD LAB - MICRO GENERAL ORDERABLES F inal Result UM SPECIALTY CORE/PROT/ENDO UM Specialty Core/Prot/Endo 500 [facility] [address] [facility], [address] * Quantiferon TB Gold Plus Green Tube (05/31/2024 4:44 PM CENTRAL SUPPLY TECHNICIAN) Quantiferon TB1 Tube 0.22 IU/mL 06/02/2024 9:11 AM CENTRAL SUPPLY TECHNICIAN UM SPECIALTY CORE/PROT/ENDO Blood BLOOD SPECIMEN / Unknown Venipuncture / Unknown 05/31/2024 4:44 PM CENTRAL SUPPLY TECHNICIAN 05/31/2024 4:44 PM CENTRAL SUPPLY TECHNICIAN us Herminia Hatch MD LAB - MICRO GENERAL ORDERABLES F inal Result UM SPECIALTY CORE/PROT/ENDO UM Specialty Core/Prot/Endo 500 [facility] [address], [address] * Quantiferon TB Gold Plus Gil Tube (05/31/2024 4:44 PM CENTRAL SUPPLY TECHNICIAN) Quantiferon Nil Tube 0.27 IU/mL 06/02/2024 9:11 AM CENTRAL SUPPLY TECHNICIAN UM SPECIALTY CORE/PROT/ENDO Blood BLOOD SPECIMEN / Unknown Venipuncture / Unknown 05/31/2024 4:44 PM CENTRAL SUPPLY TECHNICIAN 05/31/2024 4:44 PM CENTRAL SUPPLY TECHNICIAN us Herminia Hatch MD LAB - MICRO GENERAL ORDERABLES F inal Result UM SPECIALTY CORE/PROT/ENDO UM Specialty Core/Prot/Endo 500 [facility] [address] [facility], [address] * Cyclic Citrullinated Peptide Antibody IgG (05/31/2024 4:43 PM CENTRAL SUPPLY TECHNICIAN) Cyclic Citrullinated Peptide Antibody IgG 1.7 <7.0 U/mL 06/02/2024 6:47 AM CENTRAL SUPPLY TECHNICIAN UM SPECIALTY CORE/PROT/END O Comment:Negative Blood BLOOD SPECIMEN / Unknown Venipuncture / Unknown 05/31/2024 4:43 PM CENTRAL SUPPLY TECHNICIAN 05/31/2024 4:43 PM CENTRAL SUPPLY TECHNICIAN us Herminia Hatch MD LAB - BLOOD ORDERABLES Final Res ult SPECIALTY CORE/PROT/ENDO Specialty Core/Prot/Endo 500 [facility] [address] [facility], [address] * Rheumatoid factor (05/31/2024 4:43 PM CENTRAL SUPPLY TECHNICIAN) Rheumatoid Factor <10 <14 IU/mL 06/01/2024 9:02 AM CENTRAL SUPPLY TECHNICIAN [facility] Blood BLOOD SPECIMEN / Unknown Venipuncture / Unknown 05/31/2024 4:43 PM CENTRAL SUPPLY TECHNICIAN 05/31/2024 4:43 PM CENTRAL SUPPLY TECHNICIAN us Herminia Hatch MD LAB - BLOOD ORDERABLES Final Res ult U LABORATORY [facility] 500 [facility], [address] [address] * Hepatitis B Surface Antibody (05/31/2024 4:42 PM CENTRAL SUPPLY TECHNICIAN) Pathologist [facility] Hepatitis B Surface Antibody Nonreactive 06/01/2024 9:23 AM CENTRAL SUPPLY TECHNICIAN LABORATORY Comment:Nonreactive results, defined as anti-HBs levels of less than 8.5 mIU/mL, indicate a lack of recovery from acute or chronic hepatitis B or inadequate immune response to HBV vaccination. Hepatitis B Surface Antibody Instrument Value <3.50 <8.5 m[IU]/mL 06/01/2024 9:23 AM CENTRAL SUPPLY TECHNICIAN LABORATORY Blood BLOOD SPECIMEN / Unknown Venipuncture / Unknown 05/31/2024 4:42 PM CENTRAL SUPPLY TECHNICIAN 05/31/2024 4:42 PM CENTRAL SUPPLY TECHNICIAN us Hemrinia Hatch MD LAB - BLOOD ORDERABLES Final Res ult LABORATORY [facility] 500 [facility], [address] [id number] [place] [address] * Hepatitis B surface antigen (05/31/2024 4:42 PM CENTRAL SUPPLY TECHNICIAN) Pathologist [facility] Hepatitis B Surface Antigen Nonreactive Nonreactive 06/01/2024 9:22 AM CENTRAL SUPPLY TECHNICIAN LABORATORY Blood BLOOD SPECIMEN / Unknown Venipuncture / Unknown 05/31/2024 4:42 PM CENTRAL SUPPLY TECHNICIAN 05/31/2024 4:42 PM CENTRAL SUPPLY TECHNICIAN us Herminia Hatch MD LAB - BLOOD ORDERABLES Final Res ult U LABORATORY [facility] 500 [facility], [address] [id number] * Erythrocyte sedimentation rate auto (05/31/2024 4:42 PM CENTRAL SUPPLY TECHNICIAN) Pathologist [facility] Erythrocyte Sedimentation Rate 10 0 - 20 mm/hr 05/31/2024 4:56 PM CENTRAL SUPPLY TECHNICIAN [facility] LABORATORY Blood BLOOD SPECIMEN / Unknown Venipuncture / Unknown 05/31/2024 4:42 PM CENTRAL SUPPLY TECHNICIAN 05/31/2024 4:42 PM CENTRAL SUPPLY TECHNICIAN us Herminia Hatch MD LAB - BLOOD ORDERABLES Final Res ult Performing Organization Address [facility]/ZIP Co de Phone Number [facility] [address] [place] [address] [place] [address], [facility] * CRP, inflammation (05/31/2024 4:42 PM CENTRAL SUPPLY TECHNICIAN) CRP Inflammation <3.00 <5.00 mg/L 05/31/20 4:59 PM CENTRAL SUPPLY TECHNICIAN [facility] LABORATORY Blood BLOOD SPECIMEN / Unknown Venipuncture / Unknown 05/31/2024 4:42 PM CENTRAL SUPPLY TECHNICIAN 05/31/2024 4:42 PM CENTRAL SUPPLY TECHNICIAN us Herminia Hatch MD LAB - BLOOD ORDERABLES Final Res ult Performing Organization Address City/[facility]/ZIP Co de Phone Number [facility] [address] [place] [address] [place] [address], [facility] * HLA-B27 Typing (05/31/2024 4:41 PM CENTRAL SUPPLY TECHNICIAN) Pathologist [facility] [id number] METHOD NGS 06/06/2024 2:04 PM CENTRAL SUPPLY TECHNICIAN [facility] B locus B27 Neg 06/06/2024 2:04 PM CENTRAL SUPPLY TECHNICIAN U [facility] LABORATORY Blood BLOOD SPECIMEN / Unknown Venipuncture / Unknown 05/31/2024 4:41 PM CENTRAL SUPPLY TECHNICIAN 05/31/2024 4:42 PM CENTRAL SUPPLY TECHNICIAN us Herminia Hatch MD LAB - IMMUNOLOGY ORDERABLES Shira l Result U HLA LABORATORY Immunology/Histocomp atability CLIA: [id number] [facility] [address], [address] [place] [address], [facility] [phone] * Pap screen reflex to HPV if [...] component of this testing was completed at [facility] 09/25/2021 10:27 AM CDT SPECIALTY LABS Brushing CERVIX UTERI STRUCTURE / Unknown 09/22/2021 3:14 PM CDT 09/22/2021 3:48 PM CDT Marija Edgar APRN TOOL DESIGN ENGINEER LAB - [place] AP Final Re sult SPECIALTY LABS [facility] Specialty Lab 500 [facility] [address] [facility], [address] [place] [address], [place] [phone] from Last 3 Months or Most Recently Relevant to Health Maintenance Insurance [id number] [address] [facility] [address] [address] [facility] [address] [address] [facility] * Guarantor: Kim Johnson Account Type Relation to Patient Date of Phone Billing Address Medication Therapy Self [address] [place] [phone] [facility] * Guarantor: Kim Johnson Account Type Relation to Patient Date of Phone Billing Address Medication Therapy Self [address] [place] [phone] [facility] Advance Directives For more information, please contact: [phone] * Full Code (Latest Code Status on File) Date Activated Date Inactivated Comments 01/14/2021 7:36 AM 01/15/2021 6:05 PM All basic and advanced life-sustaining interventions are performed as appropriate Question Answer Comments Code status determined by: Discussion with patie nt/ legal decision maker Care Teams Rpg Developer Relationship Specialty Start Date End Date Esha Grimm PA-C [address] [place] [address] PCP - General Family Medicine 05/04/23 Diana Desir, [facility] [address] [place] [address] Pharmacist Pharmacist 04/17/21 Rain Galaviz PA-C [address] [place] [address] [address] [place] [address] Physician Political Researcher Dermatology 04/28/21 Tavia Wyatt MD [address] [place] [address] [address] [place] [address] Dermatology 07/14/21 Erica Farrell APRN TOOL DESIGN ENGINEER [address] [facility] [address] [place] [address] Nurse Practitioner Cardiovascular Disease 09/09/21 Rich Barrett MD [address] [facility] [address] [place] [address] Physician Ophthalmology 01/21/22 Neil Kent MD [address] [place] [address] [place] [address] Dermatology 02/24/22 [facility] [address] [place] [address] Assigned MTM Pharmacist 04/07/22 Livan Sharif MD [address], [facility] [address] [place], [place] [address] Cardiovascular Disease 05/14/22 Catherine Cm MD [address] [facility] [place], [place] [address] Cardiovascular Disease 07/21/22 Valery Veronica, PAUcheC [address] [place] [address] [phone] Physician Political Researcher Dermatology 07/21/22 Brea Quinn APRN TOOL DESIGN ENGINEER [address] [place], [place] 0[address] Nurse Practitioner Dermatology 09/21/22 Alfonso Renteria MD [address] [facility] 200 [place], [place] 7[address] Assigned Neuroscience Provider 04/02/23 Radha Lomeli APRN TOOL DESIGN ENGINEER [address] [place] [id number] Assigned Heart and Vascular Provider 05/28/23 [place] David [place] [address] [facility] [place] [address] MD Ophthalmology 06/15/23 Esha Grimm PA-C [address] [place] [address] Assigned PCP 07/16/23 Valery Veronica PA-C [address] [place] [address] Physician Political Researcher Dermatology 09/19/23 Rey Tay MD [address] [place] [id number] MD Gastroenterology 09/20/23 Rocky Zepeda DO [address] [place] [address] [phone] Physician Gastroenterology 09/20/23 Philip Dumont MD [address] [place] [address] [phone] Physician Ophthalmology 09/22/23 Meredith Carrera PA-C [address] [place] [address] Assigned Gastroenterology Provider 11/01/23 Neil Kent MD [address] [address] Dermatology 11/02/23 [place] [address] [place] [address] Neurological Surgery 12/26/23 Audrey Waite PA-C [address] [place] [address] Physician Political Researcher Dermatology 02/28/24 Valery Veronica PA-C [address] [place] [address] Physician Political Researcher Dermatology 04/10/24 Herminia Hatch MD [address] [place] [address] Assigned Rheumatology Provider 07/02/24
--- OUTSIDE RECORDS SUMMARY | 2024-08-28 18:20 | XMS_ITS | Encounter Summary ---
Author Organization [facility] Address [address] [place] [address] Care Team Providers Care Lead Laying And Gluing Machine Operator Name Role Phone Lita Oseguera Unavailable Unavailable Marija Edgar APRN SPAR CAP BEVELER Primary Care Provider + Chanelle Mccann APRN CNM Unavailab le Kyara De La Fuente RN Unavailable [phone] Marija Edgar APRN SPAR CAP BEVELER Unavailable Mynor Broussard MD Unavailable [phone] Keisha Dotson MD Unavailable Galo Burrell MD Unavailable Unavailable Cristina Wood Unavailable Diana Desir [facility] Unavailable Rain Galaviz PA-C Unavailable Summer Lara MD Unavailable [phone] Summer Lara MD Unavailable [phone] Summer Lara MD Unavailable [phone] Tavia Wyatt MD Unavailable Johnny Murillo MD Unavailable Erica Farrell APRN SPAR CAP BEVELER Unavailable Vikas Teresita Watson [facility] Unavailable Tavia Wyatt MD Unavailable Diana Desir [facility] Unavailable [phone] Rich Barrett MD Unavailable Neil Kent MD Unavailable Roney Story DPM Unavailable [phone] Erica Farrell APRN SPAR CAP BEVELER Unavailable Diana Desir [facility] Unavailable [phone] Jelena David Unavailable Galo Burrell MD Unavailable Unavailable Livan Sharif MD Unavailable Livan Sharif MD Unavailable + Catherine Cm MD Unavailable + Valery Veronica-C Unavailable [phone] Catherine Cm MD Unavailable + Johnny Murillo MD Unavailable [phone] Brea Quinn SUPERVISOR [employer] SPAR CAP BEVELER Unavailable [phone] Brea Quinn SUPERVISOR [employer] SPAR CAP BEVELER Unavailable [phone] Jose Francisco Johnson MD Unavailable Livan Sharif MD Unavailable + Catherine Cm MD Unavailable + Sydnie Martinez RN Unavailable Unavailable Alfonso Renteria MD Unavailable [phone] Esha Grimm PA-C Primary Care Provider Cheng Todd PA-C Unavailable Radha Lomeli SUPERVISOR [employer] SPAR CAP BEVELER Unavailable [phone] Jelena David OD Unavailable Pao Joseph RN Unavailable Unavailable Esha Grimm PA-C Unavailable [phone] Valery Veronica PA-C Unavailable [phone] Rey Tay MD Unavailable Rocky Zepeda DO Unavailable Philip Dumont MD Unavailable [phone] Meredith Carrera PA-C Unavailable [phone] Neil Kent MD Unavailable Juan Pablo Emmanuel MD Unavailable [phone] Audrey Waite PA-C Unavailable [phone] Valery Veronica PA-C Unavailable Herminia Hatch MD Unavailable Encounter Details Date Type Department Care Team (Late st Contact Info) Description 01/02/2021 MyC Medical Advice [address] [address] Kierra Eller Social History Tobacco [...] medical care at [facility] or [facility]? More than 4 times [...] Answer Date Recorded PHQ-2 Score 3 09/29/2020 [facility] - Occupational Stress Questionnaire Answer [...] AM CDT Office Visit [facility] [address], [address] [place] [address] [place] [address] [place] [id number] Johnny Penn MD [address] [place], [place] [address] documented as of this encounter Visit Diagnoses Not on filedocumented in this encounter Additional Health Concerns Infection Onset Date Last Indicated Resolved Time Rule Out COVID-19 05/11/2021 05/11/2021 05/13/2021 10:18 AM CDT Rule Out COVID-19 07/13/2021 07/13/2021 07/14/2021 3:04 PM IS CONSULTANT Rule Out COVID-19 07/18/2021 07/18/2021 07/20/2021 1:56 PM IS CONSULTANT COVID-19 07/18/2021 07/18/2021 08/08/2021 11:3 9 PM IS CONSULTANT Rule Out COVID-19 12/18/2021 12/18/2021 12/19/2021 11:34 AM CDT Rule Out COVID-19 02/24/2022 02/24/2022 02/25/2022 1:08 PM CDT Rule Out COVID-19 04/26/2022 04/26/2022 04/26/2022 6:47 AM CDT Rule Out COVID-19 05/17/2022 05/17/2022 05/17/2022 10:20 PM IS CONSULTANT Rule Out COVID-19 06/09/2022 06/09/2022 06/09/2022 9:35 AM IS CONSULTANT COVID-19 06/09/2022 06/09/2022 06/30/2022 11:4 1 PM IS CONSULTANT Rule Out COVID-19 11/10/2022 11/10/2022 11/11/2022 12:17 PM CDT Rule Out COVID-19 03/07/2023 03/07/2023 03/07/2023 1:20 PM CDT Rule Out COVID-19 12/26/2023 12/26/2023 12/26/2023 9:50 AM CDT Rule Out COVID-19 04/09/2024 04/09/2024 04/10/2024 6:48 PM CDT Assessment Noted Time PHQ-9 Depression Total Score: 6 09/30/19 3:25 PM CDT documented as of this encounter Care Teams Lead Laying And Gluing Machine Operator Relationship Specialty Start Date End Date Marija Edgar APRN SPAR CAP BEVELER PCP - General Nurse Practitioner 04/30/20 04/14/23 Esha Grimm PA-C [address] [place] [address] PCP - General Family Medicine 05/04/23 Lita Oseguera Personal Advocate & Liaison (PAL) 02/28/20 03/27/23 Chanelle Mccann APRN CNM [address]458 [facility] 200 [place] [address] Assigned OBGYN Provider 05/02/2005/09 Kyara De La Fuente, RN Specialty Coin Purse Framer Neurology 06/04/20 03/05/21 Marija Edgar APRN SPAR CAP BEVELER Assigned PCP 06/08/20 04/29/23 Mynor Broussard MD [address] [facility] 500 [place], [place] 668875 Assigned Surgical Provider 06/01/20 11/28/21 Keisha Dotson MD 909 [place], [place] 000555 Assigned Neuroscience Provider 06/04/20 04/01/23 Galo Burrell MD Assigned Heart and Vascular Provider 10/05/20 04/02/22 Cristina Wood Financial Resource Worker 02/09/21 02/09/21 Diana Desir, [facility] [address] [place] [address] Pharmacist Pharmacist 04/17/21 Rain Galaviz PA-C [address] [place] [address] [place] [address] Physician Mixer Operator Dermatology 04/28/21 Summer Lara MD [address] [place] [address] 479234 Assigned OBGYN Provider 05/10/2105/23 Summer Lara MD [address] [place] [address] 156274 Assigned OBGYN Provider 05/31/21 Summer Lara MD [address] [place] [address] 504394 Assigned OBGYN Provider 05/24/2105/30 Tavia Wyatt MD [address] [place] [address] 977384 Dermatology 07/14/21 Johnny Murillo MD [address] [place], [place] 697314 Assigned Musculoskeletal Provider 08/30/21 03/17/22 Erica Farrell APRN SPAR CAP BEVELER 6405 [facility] [address] [place], [place] 759125 Nurse Practitioner Cardiovascular Disease 09/09/21 Teresita Bean [facility] [address] [place] [id number] Pharmacist Pharmacist 09/24/21 09/29/21 Tavia Wyatt MD [address] [place] [address] Assigned Surgical Provider 11/29/21 05/07/22 Diana Desir [facility] [address] [place] [address] Assigned MTM Pharmacist 01/02/22 Rich Barrett MD [address] [address] Physician Ophthalmology 01/21/22 Neil Kent MD 500 [place], [place] 305135 Dermatology 02/24/22 [place] [address] [facility] [address] [place], [place] 942697 Assigned Musculoskeletal Provider 03/20/22 08/13/22 Erica Farrell APRN SPAR CAP BEVELER 1700 [place] [address] Assigned Heart and Vascular Provider 04/03/22 04/16/22 Diana Desir [facility] 3033 [place] [address] Assigned MTM Pharmacist 04/07/22 [place] David OD [address] [facility] [place] [address] Assigned Surgical Provider 05/08/22 10/08/22 Galo Burrell MD Assigned Heart and Vascular Provider 04/17/22 06/11/22 Livan Sharif MD [address] [place] [address] Cardiovascular Disease 05/14/22 Livan Sharif MD [address] [place] [address] Assigned Heart and Vascular Provider 06/12/22 07/23/22 Catherine Cm MD [address] [place] [address] Cardiovascular Disease 07/21/22 Valery Veronica, PAUcheC [address] [place], [place] 8[address] Physician Mixer Operator Dermatology 07/21/22 Catherine Cm MD [address] [place], [place] 267695 Assigned Heart and Vascular Provider 07/24/22 11/05/22 Johnny Murillo MD [address] [facility] [address] [place] [address] 044754 Assigned Musculoskeletal Provider 08/14/22 10/08/22 Brea Quinn APRN SPAR CAP BEVELER 500 [place] [address] Nurse Practitioner Dermatology 09/21/22 Brea Quinn APRN SPAR CAP BEVELER [address]01 [facility] [place] [address] Assigned Surgical Provider 10/09/22 05/01/24 [place] [address] [place] [facility] 300 [place] [address] Assigned Musculoskeletal Provider 10/09/22 05/01/24 Livan Sharif MD [address] [facility] [address] [place], [place] 601035 Assigned Heart and Vascular Provider 11/06/22 11/12/22 Catherine Cm MD [address] [facility] [address] [place] [address] Assigned Heart and Vascular Provider 11/13/22 05/27/23 Sydnie Martinez RN Personal Advocate & Liaison (PAL) Family Medicine 03/28/23 07/31/23 Alfonso Renteria MD 5775 [facility] 200 [place], [place] 412346 Assigned Neuroscience Provider 04/02/23 Cheng Todd PA-C [address] [place] [address] Assigned PCP 04/30/23 07/15/23 Radha Lomeli APRN SPAR CAP BEVELER 6405 [facility] [place] [address] [place], [place] 214675 Assigned Heart and Vascular Provider 05/28/23 Jelena David OD [address] [facility] [place] [address] MD Ophthalmology 06/15/23 Pao Joseph, VJ Personal Advocate & Liaison (PAL) Nurse 08/01/23 11/07/23 Esha Grimm PA-C [address] [place] [address] Assigned PCP 07/16/23 Valery Veronica PA-C [address] [place] [address] 691075 Physician Mixer Operator Dermatology 09/19/23 Rey Tay MD [address] [place] [address] 096545 Gastroenterology 09/20/23 Rocky Zepeda DO [address] [place] [address] 217105 Physician Gastroenterology 09/20/23 Philip Dumont MD [address] [place] [address] 266025 Physician Ophthalmology 09/22/23 Meredith Carrera PA-C [address] [place] [address] Assigned Gastroenterology Provider 11/01/23 Neil Kent MD [address] [place] [address] Dermatology 11/02/23 [place] [address] [place] [facility] [place] [address] Neurological Surgery 12/26/23 Audrey Waite PA-C 500 [place] [address] Physician Mixer Operator Dermatology 02/28/24 Valery Veronica PA-C 560391 [place] [address] Physician Mixer Operator Dermatology 04/10/24 Herminia Hatch MD [facility]5 [place] [address] Assigned Rheumatology Provider 07/02/24 documented as of this encounter
--- OUTSIDE RECORDS SUMMARY | 2024-08-28 18:20 | XMS_ITS | Encounter Summary ---
Author Organization [facility] Address [address] [place] [address] Care Team Providers Care Archival Studies Professor Name Role Phone Lita Oseguera Unavailable Unavailable Marija Edgar APRN FLOW MANAGER Primary Care Provider + Marija Edgar APRN FLOW MANAGER Unavailable [phone] Keisha Dotson MD Unavailable Diana Desir [facility] Unavailable Rain Galaviz PA-C Unavailable Tavia Wyatt MD Unavailable Erica Farrell APRN FLOW MANAGER Unavailable Tavia Wyatt MD Unavailable [phone] Rich Barrett MD Unavailable [phone] Neil Kent MD Unavailable Roney Story DPM Unavailable Diana eDsir [facility] Unavailable Jelena David OD Unavailable Galo Burrell MD Unavailable Unavailable Livan Sharif MD Unavailable Livan Sharif MD Unavailable Catherine Cm MD Unavailable + Valery Veronica PA-C Unavailable Catherine Cm MD Unavailable + Johnny Murillo MD Unavailable [phone] Brea Quinn HIGH SCHOOL DIRECTOR FLOW MANAGER Unavailable [phone] Brea Quinn HIGH SCHOOL DIRECTOR FLOW MANAGER Unavailable [phone] Jose Francisco Johnson MD Unavailable Livan Sharif MD Unavailable Catherine Cm MD Unavailable + Sydnie Mratinez RN Unavailable Unavailable Alfonso Renteria MD Unavailable [phone] Esha Grimm PA-C Primary Care Provider Cheng Todd PA-C Unavailable Radha Lomeli HIGH SCHOOL DIRECTOR FLOW MANAGER Unavailable Jelena David OD Unavailable Pao Joseph RN Unavailable Unavailable Esha rGimm PA-C Unavailable [phone] Valery Veronica PA-C Unavailable [phone] Rey Tay MD Unavailable Rocky Zepeda DO Unavailable Philip Dumont MD Unavailable Meredith Carrera PA-C Unavailable Neil Kent MD Unavailable Juan Pablo Emmanuel MD Unavailable [phone] Audrey Waite PA-C Unavailable Valery Veronica PA-C Unavailable Herminia Hatch MD [facility] Encounter Details Date Type Department Care Team (Late st Contact Info) Description 05/01/2022 MyC Medical Advice [address] [address] Thang Diana Stanislav, [facility] [address] [place] [address] Social History Tobacco Use Types Packs/Day Years [...] How often do you attend alevism or latter-day serv ices? Never 09/22/2021 Do [...] Answer Date Recorded PHQ-2 Score 2 12/18/2021 [facility] [...] in a fpc (including now)? No 09/22/2021 [place] Depression Scale Answer Date Recorded [place] Depression Score 5 01/14/2021 Last EPDS Self Harm Result Not on file 01/14 Education Answer Date Recorded What is the highest level of school you have completed or the highest degree you have received? 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 DRY KILN LOADER Gender Identity Female 03/02/2021 5:45 PM [...] Visit [facility] [address], [address] [place] [address] [place] [address] [address] [place] 816937 Johnny Penn MD [address] [facility] [place] 806385 documented as of this encounter Visit Diagnoses Not on filedocumented in this encounter Additional Health Concerns Infection Onset Date Last Indicated Resolved Time Rule Out COVID-19 05/17/2022 05/17/2022 05/17/2022 10:20 PM DRY KILN LOADER Rule Out COVID-19 06/09/2022 06/09/2022 06/09/2022 9:35 AM DRY KILN LOADER COVID-19 06/09/2022 06/09/2022 06/30/2022 11:4 1 PM DRY KILN LOADER Rule Out COVID-19 11/10/2022 11/10/202211/11/2022 12:17 PM CDT Rule Out COVID-19 03/07/2023 03/07/2023 03/07/2023 1:20 PM CDT Rule Out COVID-19 12/26/2023 12/26/2023 12/26/2023 9:50 AM CDT Rule Out COVID-19 04/09/2024 04/09/2024 04/10/2024 6:48 PM CDT Assessment Noted Time PHQ-9 Depression Total Score: 2 12/19/19 2:50 PM CDT documented as of this encounter Care Teams Archival Studies Professor Relationship Specialty Start Date End Date Marija Edgar APRN FLOW MANAGER PCP - General Nurse Practitioner 04/30/20 04/14/23 Esha Grimm PA-C [address] [place] [address] PCP - General Family Medicine 05/04/23 Lita Oseguera Personal Advocate & Liaison (PAL) 02/28/20 03/27/23 Marija Edgar APRN FLOW MANAGER Assigned PCP 06/08/20 04/29/23 Keisha Dotson MD 909 [place], [place] 06[address]45 Assigned Neuroscience Provider 06/04/20 04/01/23 Diana Desir [facility] [address] [place], [place] 7[address]896 Pharmacist Pharmacist 04/17/21 Rain Galaviz PA-C [address] [place] [address] [place] [address] Physician Software Sales Manager Dermatology 04/28/21 Tavia Wyatt MD [address] [place] [address] [place] [address] Dermatology 07/14/21 Erica Farrell APRN FLOW MANAGER 6405 [facility] [address] [place] [address] Nurse Practitioner Cardiovascular Disease 09/09/21 Tavia Wyatt MD [address] [place] [address] Assigned Surgical Provider 11/29/21 05/07/22 Rich Barrett MD 516 [facility] [address] [place] [address] Physician Ophthalmology 01/21/22 Neil Kent MD 500 [place] [address] Dermatology 02/24/22 [place] [address] [facility] 300 [place], [place] 474287 Assigned Musculoskeletal Provider 03/20/22 08/13/22 Diana Desir, [facility] [address] [place], [place] 091296 Assigned MTM Pharmacist 04/07/22 Jelena David OD 3305 [facility] [place] [address] Assigned Surgical Provider 05/08/22 10/08/22 Galo Burrell MD Assigned Heart and Vascular Provider 04/17/22 06/11/22 Livan Sharif MD [address] [place] [address] Cardiovascular Disease 05/14/22 Livan Sharif MD [address] [place] [address] Assigned Heart and Vascular Provider 06/12/22 07/23/22 Catherine Cm MD [address] [place], [place] 359835 Cardiovascular Disease 07/21/22 Valery Veronica PAUcheC [address] [place] [address] 793125 Physician Software Sales Manager Dermatology 07/21/22 Catherine Cm MD [address] [place], [place] [address] Assigned Heart and Vascular Provider 07/24/22 11/05/22 Johnny Murillo MD [address] 203904 Assigned Musculoskeletal Provider 08/14/22 10/08/22 Brea Quinn APRN FLOW MANAGER [address] [place] [address] 636415 Nurse Practitioner Dermatology 09/21/22 Brea Quinn, HIGH SCHOOL DIRECTOR FLOW MANAGER [address] [place] [address] Assigned Surgical Provider 10/09/22 05/01/24 [place] [address] [address] [facility] [address] [place] [address] Assigned Musculoskeletal Provider 10/09/22 05/01/24 Livan Sharif MD [address] [place] [address] Assigned Heart and Vascular Provider 11/06/22 11/12/22 Catherine Cm MD [address] [place] [address] Assigned Heart and Vascular Provider 11/13/22 05/27/23 Sydnie Martinez, RN Personal Advocate & Liaison (PAL) Family Medicine 03/28/23 07/31/23 Alfonso Renteria MD 5775 [facility] 200 [place] [address] Assigned Neuroscience Provider 04/02/23 Cheng Todd PA-C [address] [place] [address] [id number] Assigned PCP 04/30/23 07/15/23 Radha Lomeli APRN FLOW MANAGER [address] [place] [address] Assigned Heart and Vascular Provider 05/28/23 Jelena David OD [address] [facility] [place] [address] Ophthalmology 06/15/23 Pao Joseph, RN Personal Advocate & Liaison (PAL) Nurse 08/01/23 11/07/23 Esha Grimm PA-C [address] [place] [phone] Assigned PCP 07/16/23 Valery Veronica PA-C [address] [place] [address] 064655 Physician Software Sales Manager Dermatology 09/19/23 Rey Tay MD [address] [place] [address] 796425 MD Gastroenterology 09/20/23 Rocky Zepeda DO [address] [place] [address] 242805 Physician Gastroenterology 09/20/23 Philip Dumont MD [address] [place] [address] 495255 Physician Ophthalmology 09/22/23 Meredith Carrera PA-C [address] [place] [address] 784805 Assigned Gastroenterology Provider 11/01/23 Neil Kent MD [address] [address] Dermatology 11/02/23 [place] [address] [place] [address] Neurological Surgery 12/26/23 Audrey Waite PA-C 500 [place] [address] Physician Software Sales Manager Dermatology 02/28/24 Valery Veronica PA-C [address] [place] [address] Physician Software Sales Manager Dermatology 04/10/24 Herminia Hatch MD [address] [place] [address] Assigned Rheumatology Provider 07/02/24 documented as of this encounter
--- OUTSIDE RECORDS SUMMARY | 2024-08-28 18:21 | XMS_ITS | Encounter Summary ---
Author Organization [facility] Address [address] [place] [address] Care Team Providers Care Corporate Representative Name Role Phone Lita Oseguera Unavailable Unavailable Marija Edgar APRN COIL WINDER REPAIR Primary Care Provider + Chanelle Mccann APRN CNM Unavailab le Kyara De La Fuente RN Unavailable [phone] Marija Edgar APRN COIL WINDER REPAIR Unavailable Mynor Broussard MD Unavailable [phone] Keisha Dotson MD Unavailable Stacey Briones LEG BREAKER Unavailable [phone] Lesley Guillermo CHW Unavailable Mary Mejia Unavailable Unavailable Lita Oseguera Unavailable Unavailable Galo Burrell MD Unavailable Unavailable Cristina Wood Unavailable Lesley Guillermo CHW Unavailable Meredith Bedoya Unavailable Unavailable Cristina Wood Unavailable Diana Desir [facility] Unavailable [phone] Rain Galaviz PA-C Unavailable [phone] Summer Lara MD Unavailable [phone] Summer Lara MD Unavailable [phone] Summer Lara MD Unavailable [phone] Tavia Wyatt MD Unavailable [phone] Johnny Murillo MD Unavailable +1- Erica Farrell APRN COIL WINDER REPAIR Unavailable + Vikas Teresita Ka Walter H Unavailable Tavia Wyatt MD Unavailable [phone] Diana Desir [facility] Unavailable [phone] Rich Barrett MD Unavailable [phone] Neil Kent MD Unavailable Roney StoryM Unavailable [phone] Erica Farrell APRN COIL WINDER REPAIR Unavailable + Diana Deisr [facility] Unavailable [phone] Jelena David OD Unavailable [phone] Galo Burrell MD Unavailable Unavailable Livan Sharif MD Unavailable + Livan Sharif MD Unavailable + Catherine Cm MD Unavailable + Valery Veronica PA-C Unavailable [phone] Catherine Cm MD Unavailable + Johnny Murillo MD Unavailable +1- Brea Quinn APRN COIL WINDER REPAIR Unavailable +[phone] Brea Quinn APRN COIL WINDER REPAIR Unavailable [phone] Jose Francisco Johnson MD Unavailable + Livan Sharif MD Unavailable + Catherine Cm MD Unavailable + Sydnie Martinez RN Unavailable Unavailable Alfonso Renteria MD Unavailable [phone] Esha Grimm PA-C Primary Care Provider Perez Chengjc Fish PA-C Unavailable Radha Lomeli APRN COIL WINDER REPAIR Unavailable Jelena David OD Unavailable [phone] Pao Joseph RN Unavailable Unavailable Esha Grimm PA-C Unavailable [phone] Valery Veronica PA-C Unavailable [phone] Rey Tay MD Unavailable Rocky Zepeda DO Unavailable Philip Dumont MD Unavailable Meredith Carrera PA-C Unavailable Neil Kent MD Unavailable Juan Pablo Emmanuel MD Unavailable Audrey Waite PA-C Unavailable JeremíasValery damon PA-C Unavailable Herminia Hatch MD Unavailable Reason for Visit * Reason Onset Date Comments Patient/info Update 08/31/2020 appointment request Encounter Details Date Type Department Care Team (Late st Contact Info) Description 08/31/2020 [facility] Medical Advice [address] [address] Marija Edgar APRN COIL WINDER REPAIR [address] [place] [phone] Patient/info Update (appointment [...] Answer Date Recorded PHQ-2 Score 0 08/12/2020 [facility] Damar of Occupat ional Health - Occupational Stress [...] PM CDT Legal Sex Female 4:13 AM DOCUMENT CONTROL SUPERVISOR Gender Identity Female 03/02/2021 5:45 PM CDT Sexual Orientation Straight 02/28/2020 12 :51 AM CDT COVID-19 Exposure Response Date Recorded In the last month, have you been in contact with someone who was confirmed or suspected to have Coronavirus / COVID-19? No / Unsure 09/03/2020 12:11 PM DOCUMENT CONTROL SUPERVISOR documented as of this encounter Miscellaneous Notes * Telephone Encounter - Maryjane Mccallum RN - 09/01/2020 7:21 AM DOCUMENT CONTROL SUPERVISOR Patient sent message requesting office visit with Marija Egdar CNP, was unable to get to clinic [...] Office Visit with Marija Edgar APRN CNP [facility] ([facility] [address] [facility] [phone] Maryjane Mccallum, Registered Nurse [facility] MENT CONTROL SUPERVISOR documented in this encounter Plan of Treatment Upcoming Encounters Date Type Department Care Team (Late st Contact Info) Description 10/23/2024 9:30 AM CDT Office Visit [facility] Neurology [facility] - [address], [address] [place] [address] [place] [address] [facility] [address] Johnny Penn MD [address] [facility] [place] [id number] documented as of this encounter Visit Diagnoses Not on filedocumented in this encounter Additional Health Concerns Infection Onset Date Last Indicated Resolved Time Rule Out COVID-19 09/24/2020 09/24/2020 09/24/2020 9:24 AM CDT Rule Out COVID-19 11/05/2020 11/05/2020 11/06/2020 1:09 PM CDT Rule Out COVID-19 05/11/2021 05/11/2021 05/13/2021 10:18 AM CDT Rule Out COVID-19 07/13/2021 07/13/2021 07/14/2021 3:04 PM DOCUMENT CONTROL SUPERVISOR Rule Out COVID-19 07/18/2021 07/18/2021 07/20/2021 1:56 PM DOCUMENT CONTROL SUPERVISOR COVID-19 07/18/2021 07/18/2021 08/08/2021 11:3 9 PM DOCUMENT CONTROL SUPERVISOR Rule Out COVID-19 12/18/2021 12/18/2021 12/19/2021 11:34 AM CDT Rule Out COVID-19 02/24/2022 02/24/2022 02/25/2022 1:08 PM CDT Rule Out COVID-19 04/26/2022 04/26/2022 04/26/2022 6:47 AM CDT Rule Out COVID-19 05/17/2022 05/17/2022 05/17/2022 10:20 PM DOCUMENT CONTROL SUPERVISOR Rule Out COVID-19 06/09/2022 06/09/2022 06/09/2022 9:35 AM DOCUMENT CONTROL SUPERVISOR COVID-19 06/09/2022 06/09/2022 06/30/2022 11:4 1 PM DOCUMENT CONTROL SUPERVISOR Rule Out COVID-19 11/10/2022 11/10/2022 11/11/2022 12:17 PM CDT Rule Out COVID-19 03/07/2023 03/07/2023 03/07/2023 1:20 PM CDT Rule Out COVID-19 12/26/2023 12/26/2023 12/26/2023 9:50 AM CDT Rule Out COVID-19 04/09/2024 04/09/2024 04/10/2024 6:48 PM CDT Assessment Noted Time PHQ-9 Depression Total Score: 9 06/25/20 20 7:04 AM DOCUMENT CONTROL SUPERVISOR documented as of this encounter Care Teams Corporate Representative Relationship Specialty Start Date End Date Marija Edgar APRN COIL WINDER REPAIR PCP - General Nurse Practitioner 04/30/20 04/14/23 Esha Grimm PA-C [address] [place] [phone] PCP - General Family Medicine 05/04/23 Lita Oseguera Personal Advocate & Liaison (PAL) 02/28/20 03/27/23 Chanelle Mccann APRN CNM [address] [place] [address] [address] [place] [address] Assigned OBGYN Provider 05/02/2005/09 Kyara De La Fuente, VJ Specialty Ironworker Neurology 06/04/20 03/05/21 Marija Edgar APRN COIL WINDER REPAIR Assigned PCP 06/08/20 04/29/23 Mynor Broussard MD [address] [facility] [address] [place] [address] Assigned Surgical Provider 06/01/20 11/28/21 Keisha Dotson MD [address] [place] [address] Assigned Neuroscience Provider 06/04/20 04/01/23 Stacey Briones, LEG BREAKER Lead Ironworker Primary Care - CC 08/11/2012/30 Lesley Guillermo, W Community Health Worker 08/11/2010/01 Mary Mejia Financial Resource Worker 09/02/20 10/06/20 Lita Oseguera Personal Advocate & Liaison (PAL) Family Medicine 09/10/20 09/21/20 Galo Burrell MD Assigned Heart and Vascular Provider 10/05/20 04/02/22 Cristina Wood Financial Resource Worker 10/07/20 10/14/20 Lesley Guillermo, [facility] Community Health Worker 10/23/2012/30 Meredith Bedoya Financial Resource Worker 10/23/20 11/23/20 Cristina Wood Financial Resource Worker 02/09/21 02/09/21 Diana Desir, [facility] [address] [place], [place] [address] Pharmacist Pharmacist 04/17/21 Rain Galaviz PA-C [address] [place] [address] [address] [place], [place] [id number] Physician Fiberglass Luggage Molder Dermatology 04/28/21 Summer Lara MD [address] [place] [address] Assigned OBGYN Provider 05/10/2105/23 Summer Lara MD [address] [place] [address] [id number] Assigned OBGYN Provider 05/31/21 Summer Lara MD [address] [place] [address] Assigned OBGYN Provider 05/24/2105/30 Tavia Wyatt MD [address] [address] Dermatology 07/14/21 Johnny Murillo MD [address] [place] [address] Assigned Musculoskeletal Provider 08/30/21 03/17/22 Erica Farrell APRN COIL WINDER REPAIR [address] [place] [address] Nurse Practitioner Cardiovascular Disease 09/09/21 Teresita Bean, [facility] [address] [place] [phone] Pharmacist Pharmacist 09/24/21 09/29/21 Tavia Wyatt MD [address] [place] [address] Assigned Surgical Provider 11/29/21 05/07/22 Diana Desir, [facility] [address] [place] [address] Assigned MTM Pharmacist 01/02/22 Rich Barrett MD [address] [facility] [address] [place], [place] [address] Physician Ophthalmology 01/21/22 Neil Kent MD [address] [place] [address] Dermatology 02/24/22 Roney Story DPM [address] [facility] [address] [place] [address] Assigned Musculoskeletal Provider 03/20/22 08/13/22 Erica Farrell APRN COIL WINDER REPAIR [address] [place] [address] Assigned Heart and Vascular Provider 04/03/22 04/16/22 Diana Desir, [facility] [address] [place], [place] [address] Assigned MTM Pharmacist 04/07/22 Jelena David OD [address] [facility] [place] [address] Assigned Surgical Provider 05/08/22 10/08/22 Galo Burrell MD Assigned Heart and Vascular Provider 04/17/22 06/11/22 Livan Sharif MD [address], [facility] [address] [place] [address] Cardiovascular Disease 05/14/22 Livan Sharif MD [address], [facility] [address] [place] [address] Assigned Heart and Vascular Provider 06/12/22 07/23/22 Catherine Cm MD [address] [facility] [place] [address] Cardiovascular Disease 07/21/22 Valery Veronica, PA-C [address] [place] [address] [place] [address] Physician Fiberglass Luggage Molder Dermatology 07/21/22 Catherine Cm MD [address] [facility] [place] [address] [place] [address] Assigned Heart and Vascular Provider 07/24/22 11/05/22 Johnny Murillo MD [address] [address] Assigned Musculoskeletal Provider 08/14/22 10/08/22 Brea Quinn APRN COIL WINDER REPAIR [address] [place] [id number] Nurse Practitioner Dermatology 09/21/22 Brea Quinn APRN COIL WINDER REPAIR [address] [place] [address] [place] [id number] Assigned Surgical Provider 10/09/22 05/01/24 [place] [address] [place] [address] [address] Assigned Musculoskeletal Provider 10/09/22 05/01/24 Livan Sharif MD [address] [facility] [address] [place] [address] Assigned Heart and Vascular Provider 11/06/22 11/12/22 Catherine Cm MD [address] [facility] [place] [address] Assigned Heart and Vascular Provider 11/13/22 05/27/23 Sydnie Martinez RN Personal Advocate & Liaison (PAL) Family Medicine 03/28/23 07/31/23 Alfonso Renteria MD [address] [facility] [address] [place] [address] Assigned Neuroscience Provider 04/02/23 Cheng Todd PA-C [address] [place] [address] Assigned PCP 04/30/23 07/15/23 Radha Lomeli APRN COIL WINDER REPAIR [address] [facility] [address] [place] [address] Assigned Heart and Vascular Provider 05/28/23 Jelena David OD [address] [facility] [place] [address] Ophthalmology 06/15/23 Pao Joseph, VJ Personal Advocate & Liaison (PAL) Nurse 08/01/23 11/07/23 Esha Grimm PA-C [address] [place] [address] Assigned PCP 07/16/23 Valery Veronica PA-C [address] [place] [address] Physician Fiberglass Luggage Molder Dermatology 09/19/23 Rey Tay MD [address] [place] [address] Gastroenterology 09/20/23 Rocky Zepeda DO [address] [place] [address] Physician Gastroenterology 09/20/23 Philip Dumont MD 6 [place] [address] Physician Ophthalmology 09/22/23 Meredith Carrera PA-C [address] [place] [address] Assigned Gastroenterology Provider 11/01/23 Neil Kent MD [address] [address] MD Dermatology 11/02/23 [place] [address] [address] [address] Neurological Surgery 12/26/23 Audrey Waite PA-C [address] [place] [address] Physician Fiberglass Luggage Molder Dermatology 02/28/24 Valery Veronica PA-C [address] [address], [place] [address] Physician Fiberglass Luggage Molder Dermatology 04/10/24 Herminia Hatch MD [facility]5 [place], [place] [address] Assigned Rheumatology Provider 07/02/24 documented as of this encounter
--- OUTSIDE RECORDS SUMMARY | 2024-08-28 18:21 | XMS_ITS | Encounter Summary ---
Author Organization [facility] Address [address] [place] [address] Care Team Providers Care Skip Tracer Name Role Phone Lita Oseguera Unavailable Unavailable Marija Edgar APRN SPLASH LINE OPERATOR Primary Care Provider + Chanelle Mccann APRN CNM Unavailab le Kyara De La Fuente RN Unavailable [phone] Marija Edgar APRN SPLASH LINE OPERATOR Unavailable [phone] Mynor Broussard MD Unavailable [phone] Keisha Dotson MD Unavailable Stacey Briones LOSS PREVENTION OFFICER Unavailable [phone] Lesley Guillermo CHW Unavailable Mary Mejia Unavailable Unavailable Lita Oseguera Unavailable Unavailable Galo Burrell MD Unavailable Unavailable Cristina Wood Unavailable Lesley Guillermo CHW Unavailable Meredith Bedoya Unavailable Unavailable Cristina Wood Unavailable Diana Desir [facility] Unavailable Rain Galaviz PA-C Unavailable Summer Lara MD Unavailable [phone] Summer Lara MD Unavailable [phone] Summer Lara MD Unavailable [phone] Tavia Wyatt MD Unavailable [phone] Johnny Murillo MD Unavailable +[phone]- Erica Farrell APRN SPLASH LINE OPERATOR Unavailable + Vikas Teresita Ka Walter H Unavailable Tavia Wyatt MD Unavailable [phone] Diana Desir [facility] Unavailable [phone] Rich Barrett MD Unavailable [phone] Neil Kent MD Unavailable Roney StoryM Unavailable [phone] Erica Farrell APRN SPLASH LINE OPERATOR Unavailable + Diana Desir [facility] Unavailable [phone] Jelena David OD Unavailable [phone] Galo Burrell MD Unavailable Unavailable Livan Sharif MD Unavailable + Livan Sharif MD Unavailable + Catherine Cm MD Unavailable + Valery Veronica PA-C Unavailable [phone] Catherine Cm MD Unavailable + Johnny Murillo MD Unavailable +1- Brea Quinn APRN SPLASH LINE OPERATOR Unavailable +1- Brea Quinn APRN SPLASH LINE OPERATOR Unavailable [phone] Jose Francisco Johnson MD Unavailable + Livan Sharif MD Unavailable + Catherine Cm MD Unavailable + Sydnie Martinez RN Unavailable Unavailable Alfonso Renteria MD Unavailable [phone] Esha Grimm PA-C Primary Care Provider Perez Chengjc Fish PA-C Unavailable Radha Lomeli APRN SPLASH LINE OPERATOR Unavailable Jelena David OD Unavailable Pao Joseph RN Unavailable Unavailable Esha Grimm PA-C Unavailable [phone] Valery Veronica PA-C Unavailable [phone] Rey Tay MD Unavailable Rocky Zepeda DO Unavailable Philip Dumont MD Unavailable Meredith Carrera PA-C Unavailable [phone] Neil Kent MD Unavailable Juan Pablo Emmanuel MD Unavailable Audrey Waite PA-C Unavailable JeremíasValery damon PA-C Unavailable Herminia Hatch MD Unavailable Reason for Visit * Reason Onset Date Comments MyChart Communication 09/02/2020 Encounter Details Date Type Department Care Team (Latest Contact Info) Description 09/02/2020 MyC Medical Advice [address] [address] Marija Edgar APRN SPLASH LINE OPERATOR [address] [place] [phone] MyChart Communication Social [...] Answer Date Recorded PHQ-2 Score 0 08/12/2020 [facility] - [facility] Questionnaire [...] PM CDT Legal Sex Female 4:13 AM BANKRUPTCY PARALEGAL Gender Identity Female 03/02/2021 5:45 PM CDT Sexual Orientation Straight 02/28/2020 12 :51 AM CDT COVID-19 Exposure Response Date Recorded In the last month, have you been in contact with someone who was confirmed or suspected to have Coronavirus / COVID-19? No / Unsure 09/05/2020 2:50 PM BANKRUPTCY PARALEGAL documented as of this encounter Miscellaneous Notes * Telephone Encounter - Ever Cardozo MA - 09/03/2020 10:34 AM CST Responded to patient as below. Ever Cardozo NETBACKUP ADMIN ([facility] RUPTCY PARALEGAL documented in this encounter Plan of Treatment Upcoming Encounters Date Type Department Care Team (Late st Contact Info) Description 10/23/2024 9:30 AM CDT Office Visit [facility] - [address], [address] [place] [address] [place] [address] [place] [address] [place] [phone] Johnny Penn MD [address] [facility] [place] 317[address] documented as of this encounter Visit Diagnoses Not on filedocumented in this encounter Additional Health Concerns Infection Onset Date Last Indicated Resolved Time Rule Out COVID-19 09/24/2020 09/24/2020 09/24/2020 9:24 AM CDT Rule Out COVID-19 11/05/2020 11/05/2020 11/06/2020 1:09 PM CDT Rule Out COVID-19 05/11/2021 05/11/2021 05/13/2021 10:18 AM CDT Rule Out COVID-19 07/13/2021 07/13/2021 07/14/2021 3:04 PM BANKRUPTCY PARALEGAL Rule Out COVID-19 07/18/2021 07/18/2021 07/20/2021 1:56 PM BANKRUPTCY PARALEGAL COVID-19 07/18/2021 07/18/2021 08/08/2021 11:3 9 PM BANKRUPTCY PARALEGAL Rule Out COVID-19 12/18/2021 12/18/2021 12/19/2021 11:34 AM CDT Rule Out COVID-19 02/24/2022 02/24/2022 02/25/2022 1:08 PM CDT Rule Out COVID-19 04/26/2022 04/26/2022 04/26/2022 6:47 AM CDT Rule Out COVID-19 05/17/2022 05/17/2022 05/17/2022 10:20 PM BANKRUPTCY PARALEGAL Rule Out COVID-19 06/09/2022 06/09/2022 06/09/2022 9:35 AM BANKRUPTCY PARALEGAL COVID-19 06/09/2022 06/09/2022 06/30/2022 11:4 1 PM BANKRUPTCY PARALEGAL Rule Out COVID-19 11/10/2022 11/10/2022 11/11/2022 12:17 PM CDT Rule Out COVID-19 03/07/2023 03/07/2023 03/07/2023 1:20 PM CDT Rule Out COVID-19 12/26/2023 12/26/2023 12/26/2023 9:50 AM CDT Rule Out COVID-19 04/09/2024 04/09/2024 04/10/2024 6:48 PM CDT Assessment Noted Time PHQ-9 Depression Total Score: 9 06/25/20 20 7:04 AM BANKRUPTCY PARALEGAL documented as of this encounter Care Teams Skip Tracer Relationship Specialty Start Date End Date Marija Edgar APRN SPLASH LINE OPERATOR PCP - General Nurse Practitioner 04/30/20 04/14/23 Esha Grimm PA-C [address] [place] [address] PCP - General Family Medicine 05/04/23 Lita Oseguera Personal Advocate & Liaison (PAL) 02/28/20 03/27/23 Chanelle Mccann APRN CNM [address] [place], [facility] 200 [place] [address] Assigned OBGYN Provider 05/02/2005/09 Kyara De La Fuente, RN Specialty Fire Investigation Manager Neurology 06/04/20 03/05/21 Marija Edgar APRN SPLASH LINE OPERATOR Assigned PCP 06/08/20 04/29/23 Mynor Broussard MD [address] [facility] 500 [place], [place] 409225 Assigned Surgical Provider 06/01/20 11/28/21 Keisha Dotson MD [address] [place], [place] [phone] Assigned Neuroscience Provider 06/04/20 04/01/23 Stacey Briones, [facility] Lead Fire Investigation Manager Primary Care - CC 08/11/2012/30 Lesley Guillermo, W Community Health Worker 08/11/2010/01 Mary Mejia Financial Resource Worker 09/02/20 10/06/20 Lita Oseguera Personal Advocate & Liaison (PAL) Family Medicine 09/10/20 09/21/20 Galo Burrell MD Assigned Heart and Vascular Provider 10/05/20 04/02/22 Cristina Wood Financial Resource Worker 10/07/20 10/14/20 Lesley Guillermo, W Community Health Worker 10/23/2012/30 Meredith Bedoya Financial Resource Worker 10/23/20 11/23/20 Pamelan Cristina Financial Resource Worker 02/09/21 02/09/21 Diana Desir, [facility] [address] [place] [address] Pharmacist Pharmacist 04/17/21 Rain Galaviz PA-C [address] [place] [address] [place] [address] Physician Metal Forger'S Assistant Dermatology 04/28/21 Summer Lara MD [address] [place] [address] Assigned OBGYN Provider 05/10/2105/23 Summer Lara MD [address] [place] [address] Assigned OBGYN Provider 05/31/21 Summer Lara MD [address] [place] [address] Assigned OBGYN Provider 05/24/2105/30 Tavia Wyatt MD [address] [place] [address] Dermatology 07/14/21 Johnny Murillo MD [facility] [place] [id number] [place] [address] Assigned Musculoskeletal Provider 08/30/21 03/17/22 Erica Farrell APRN SPLASH LINE OPERATOR [address] [place] [id number] [place] [address] Nurse Practitioner Cardiovascular Disease 09/09/21 Teresita Bean [facility] [address] [facility] [place] [address] Pharmacist Pharmacist 09/24/21 09/29/21 Tavia Wyatt MD [address] [place] [address] Assigned Surgical Provider 11/29/21 05/07/22 Diana Desir [facility] [address] [place] [address] Assigned MTM Pharmacist 01/02/22 Rich Barrett MD [address] [phone] Physician Ophthalmology 01/21/22 Neil Kent MD 500 [place] [address] Dermatology 02/24/22 Roney Story DPM [address] [facility] [address] [place] [address] Assigned Musculoskeletal Provider 03/20/22 08/13/22 Erica Farrell APRN SPLASH LINE OPERATOR 1700 [place] [address] Assigned Heart and Vascular Provider 04/03/22 04/16/22 Diana Desir [facility] 3033 [place] [address] Assigned MTM Pharmacist 04/07/22 Jelena David OD [address] [facility] [place] [address] Assigned Surgical Provider 05/08/22 10/08/22 Galo Burrell MD Assigned Heart and Vascular Provider 04/17/22 06/11/22 Livan Sharif MD [address] [place] 189455 Cardiovascular Disease 05/14/22 Livan Sharif MD [address] [place] 319415 Assigned Heart and Vascular Provider 06/12/22 07/23/22 Catherine Cm MD [address] [place] [address]45 Cardiovascular Disease 07/21/22 Valery Veronica, PA-C [address] [place], [place] 565385 Physician Metal Forger'S Assistant Dermatology 07/21/22 Catherine Cm MD [address] [place] 322605 Assigned Heart and Vascular Provider 07/24/22 11/05/22 Johnny Murillo MD [address] [facility] [address] [place], [place] 164234 Assigned Musculoskeletal Provider 08/14/22 10/08/22 Brea Quinn APRN SPLASH LINE OPERATOR 500 [place], [place] 777075 Nurse Practitioner Dermatology 09/21/22 Brea Quinn APRN SPLASH LINE OPERATOR 6401 [place] [address] Assigned Surgical Provider 10/09/22 05/01/24 [place] [address] [address] Assigned Musculoskeletal Provider 10/09/22 05/01/24 Livan Sharif MD [address] [facility] [address] [place] [address] Assigned Heart and Vascular Provider 11/06/22 11/12/22 Catherine Cm MD [address] [facility] [address] [place] [address] Assigned Heart and Vascular Provider 11/13/22 05/27/23 Sydnie Martinez RN Personal Advocate & Liaison (PAL) Family Medicine 03/28/23 07/31/23 Alfonso Renteria MD [address] [facility] 200 [place], [place] 527896 Assigned Neuroscience Provider 04/02/23 Cheng Todd PA-C [address] [place] [address] [id number] Assigned PCP 04/30/23 07/15/23 Radha Lomeli APRN SPLASH LINE OPERATOR [address] [facility]00 [place], [place] 218895 Assigned Heart and Vascular Provider 05/28/23 Jelena David OD [address] [facility] [address] MD Ophthalmology 06/15/23 Pao Joseph, VJ Personal Advocate & Liaison (PAL) Nurse 08/01/23 11/07/23 Esha Grimm PA-C [address] [place] [phone] Assigned PCP 07/16/23 Valery Veronica PA-C [address] [place] [address] 376315 Physician Metal Forger'S Assistant Dermatology 09/19/23 Rey Tay MD [address] [place] [address] 609345 MD Gastroenterology 09/20/23 Rocky Zepeda DO [address] [place] [address] 238745 Physician Gastroenterology 09/20/23 Philip Dumont MD [address] [place] [address] 000205 Physician Ophthalmology 09/22/23 Meredith Carrera PA-C [address] [place] [address] 949955 Assigned Gastroenterology Provider 11/01/23 Neil Kent MD [address] [address] Dermatology 11/02/23 [place] [address] [facility] [place] [address] Neurological Surgery 12/26/23 Audrey Waite PA-C 500 [place] [address] Physician Metal Forger'S Assistant Dermatology 02/28/24 Valery Veronica PA-C 524202 [place], [place] [address] Physician Metal Forger'S Assistant Dermatology 04/10/24 Herminia Hatch MD [facility]5 [place], [place] [address] Assigned Rheumatology Provider 07/02/24 documented as of this encounter
--- OUTSIDE RECORDS SUMMARY | 2024-08-28 18:21 | XMS_ITS | Encounter Summary ---
Author Organization [facility] Address [address] [place] [address] Care Team Providers Care Cage Maker Name Role Phone Lita Oseguera Unavailable Unavailable Marija Edgar APRN SCHOOL PSYCHOMETRIST Primary Care Provider + Marija Edgar APRN SCHOOL PSYCHOMETRIST Unavailable [phone] Keisha Dotson MD Unavailable Galo Burrell MD Unavailable Unavailable Diana Desir [facility] Unavailable Rain Galaviz PA-C Unavailable Summer Lara MD Unavailable [phone] Tavia Wyatt MD Unavailable Johnny Murillo MD Unavailable Erica Farrell APRN SCHOOL PSYCHOMETRIST Unavailable Tavia Wyatt MD Unavailable Diana Desir [facility] Unavailable [phone] Rich Barrett MD Unavailable Neil Kent MD Unavailable oRney Story DPM Unavailable [phone] Erica Farrell APRN SCHOOL PSYCHOMETRIST Unavailable + Diana Desir [facility] Unavailable Jelena David OD Unavailable Galo Burrell MD Unavailable Unavailable HoLivan MD Unavailable Livan Sharif MD Unavailable IskoCatherine boothe MD Unavailable + Valery Veronica PA-C Unavailable [phone] Catherine Cm MD Unavailable + Johnny Murillo MD Unavailable [phone] Brea Quinn RETIREMENT SPECIALIST SCHOOL PSYCHOMETRIST Unavailable [phone] Brea Quinn RETIREMENT SPECIALIST SCHOOL PSYCHOMETRIST Unavailable [phone] Jose Francisco Johnson MD Unavailable Livan Sharif MD Unavailable + IsCatherine boothe MD Unavailable + Sydnie Martinez RN Unavailable Unavailable Alfonso Renteria MD Unavailable Esha Grimm PA-C Primary Care Provider Cheng Todd PA-C Unavailable Radha Lomeli RETIREMENT SPECIALIST SCHOOL PSYCHOMETRIST Unavailable [phone] Jelena David OD Unavailable Pao Joseph RN Unavailable Unavailable Esha Grimm PA-C Unavailable [phone] Valery Veronica PA-C Unavailable [phone] Rey Tay MD Unavailable Rocky Zepeda DO Unavailable Philip Dumont MD Unavailable [phone] Meredith Carrera PA-C Unavailable Neil Kent MD Unavailable Juan Pablo Emmanuel MD Unavailable [phone] Audrey Waite PA-C Unavailable [phone] Valery Veronica PA-C Unavailable [phone] Herminia Hatch MD Unavailable Encounter Details Date Type Department Care Team (Late st Contact Info) Description 03/09/2022 MyC Medical Advice [address] [address] Abby Dye Social History Tobacco [...] How often do you attend judaism or scientology serv ices? Never 09/22/2021 Do you belong [...] 12/18/2021 [facility] [...] in a mcc (including now)? No 09/22/2021 Eunice Depression Scale Answer Date Recorded Eunice Depression Score 5 01/14/2021 Last EPDS Self Harm Result Not on file 01/14 Education Answer Date Recorded What is the highest level of school you have completed or the highest degree you have received? 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 SERVICE ADVOCATE CONTACT Gender Identity Female 03/02/2021 5:45 PM CDT [...] AM CDT Office Visit [facility] Neurology [address], [address] [place] [address] [place] [address] [place] [address] Johnny Penn MD [address] [facility] [place] [address] documented as of this encounter Visit Diagnoses Not on filedocumented in this encounter Additional Health Concerns Infection Onset Date Last Indicated Resolved Time Rule Out COVID-19 04/26/2022 04/26/2022 04/26/2022 6:47 AM CDT Rule Out COVID-19 05/17/2022 05/17/2022 05/17/2022 10:20 PM SERVICE ADVOCATE CONTACT Rule Out COVID-19 06/09/2022 06/09/2022 06/09/2022 9:35 AM SERVICE ADVOCATE CONTACT COVID-19 06/09/2022 06/09/2022 06/30/2022 11:4 1 PM SERVICE ADVOCATE CONTACT Rule Out COVID-19 11/10/2022 11/10/2022 11/11/2022 12:17 PM CDT Rule Out COVID-19 03/07/2023 03/07/2023 03/07/2023 1:20 PM CDT Rule Out COVID-19 12/26/2023 12/26/2023 12/26/2023 9:50 AM CDT Rule Out COVID-19 04/09/2024 04/09/2024 04/10/2024 6:48 PM CDT Assessment Noted Time PHQ-9 Depression Total Score: 2 12/19/19 2:50 PM CDT documented as of this encounter Care Teams Cage Maker Relationship Specialty Start Date End Date Marija Edgar APRN SCHOOL PSYCHOMETRIST PCP - General Nurse Practitioner 04/30/20 04/14/23 Esha Grimm PA-C [address] [place] [phone] PCP - General Family Medicine 05/04/23 Lita Osegeura Personal Advocate & Liaison (PAL) 02/28/20 03/27/23 Marija Edgar APRN SCHOOL PSYCHOMETRIST Assigned PCP 06/08/20 04/29/23 Keisha Dotson MD 909 [place] [address] Assigned Neuroscience Provider 06/04/20 04/01/23 Galo Burrell MD Assigned Heart and Vascular Provider 10/05/20 04/02/22 Diana Desir [facility] 3033 [place] [address] Pharmacist Pharmacist 04/17/21 Rain Galaviz PA-C [address] [place] [address] [place] [address] Physician Tower Crane Operator Dermatology 04/28/21 Summer Lara MD [address] [place] [address] 153014 Assigned OBGYN Provider 05/31/21 2 Tavia Wyatt MD [address] [place] [address] 451704 Dermatology 07/14/21 Johnny Murillo MD [address] [place] [address] Assigned Musculoskeletal Provider 08/30/21 03/17/22 Erica Farrell APRN [facility] [address] [place] [address] [address] [place] [address] Nurse Practitioner Cardiovascular Disease 09/09/21 Tavia Wyatt MD [facility] [address] [place], [place] [phone] Assigned Surgical Provider 11/29/21 05/07/22 Diana Desir [facility] 30[address] [place] [address] Assigned MTM Pharmacist 01/02/22 Rich Barrett MD [address] 589785 Physician Ophthalmology 01/21/22 Neil Kent MD 500 [place], [place] 628635 Dermatology 02/24/22 Roney Story DPM [address] [facility] 300 [place] [address] Assigned Musculoskeletal Provider 03/20/22 08/13/22 Erica Frarell APRN SCHOOL PSYCHOMETRIST 1700 [place] [address] Assigned Heart and Vascular Provider 04/03/22 04/16/22 Diana Desir [facility] 30[address] [place] [address] Assigned MTM Pharmacist 04/07/22 Jelena David OD [address] [facility] [place] [address] Assigned Surgical Provider 05/08/22 10/08/22 Galo Burrell MD Assigned Heart and Vascular Provider 04/17/22 06/11/22 Livan Sharif MD [address] [facility] [address] [place] [address] Cardiovascular Disease 05/14/22 Livan Sharif MD [address], [facility] [address] [place] [address] Assigned Heart and Vascular Provider 06/12/22 07/23/22 Catherine Cm MD [address] [facility]00 [place] 654825 Cardiovascular Disease 07/21/22 Valery Veronica, PAUcheC [address] [place] [address] 742405 Physician Tower Crane Operator Dermatology 07/21/22 Catherine Cm MD [address] [facility]00 [place] 100945 Assigned Heart and Vascular Provider 07/24/22 11/05/22 oJhnny Murillo MD [facility] 195994 Assigned Musculoskeletal Provider 08/14/22 10/08/22 Brea Quinn APRN SCHOOL PSYCHOMETRIST [address] [place] [address] 292495 Nurse Practitioner Dermatology 09/21/22 Brea Quinn APRN SCHOOL PSYCHOMETRIST [address] [place] [address] [place] [id number] Assigned Surgical Provider 10/09/22 05/01/24 [place] [address] [place] [address] [place] 899137 Assigned Musculoskeletal Provider 10/09/22 05/01/24 Livan Sharif MD [address], [facility] [address] [place] 940015 Assigned Heart and Vascular Provider 11/06/22 11/12/22 Catherine Cm MD [address] [facility] [address] [place] [address] Assigned Heart and Vascular Provider 11/13/22 05/27/23 Sydnie Martinez, RN Personal Advocate & Liaison (PAL) Family Medicine 03/28/23 07/31/23 Alfonso Renteria MD 5775 [facility] 200 [place] [address] Assigned Neuroscience Provider 04/02/23 Cheng Todd PA-C [address] [place] [address] [id number] Assigned PCP 04/30/23 07/15/23 Radha Lomeli APRN SCHOOL PSYCHOMETRIST [address] [place] [address] Assigned Heart and Vascular Provider 05/28/23 Jelena David OD [facility] [facility] [place] [address] Ophthalmology 06/15/23 Pao Joseph, VJ Personal Advocate & Liaison (PAL) Nurse 08/01/23 11/07/23 Esha Grimm PAUcheC [address] [place] [phone] Assigned PCP 07/16/23 Valery Veronica PA-C 9 [place], [place] [address] Physician Tower Crane Operator Dermatology 09/19/23 Rey Tay MD 9 [place], [place] 475115 MD Gastroenterology 09/20/23 Rocky Zepeda DO 500 [place], [place] 722825 Physician Gastroenterology 09/20/23 Philip Dumont MD [address] [place] [address] 402415 Physician Ophthalmology 09/22/23 Meredith Carrera PA-C 9 [place], [place] 509835 Assigned Gastroenterology Provider 11/01/23 Neil Kent MD [address] [address] Dermatology 11/02/23 [place] [address] [place] [facility] [place] [address] Neurological Surgery 12/26/23 Audrey Waite PA-C 500 [place] [address] Physician Tower Crane Operator Dermatology 02/28/24 Valery Veronica PA-C [address] [place] [address] Physician Tower Crane Operator Dermatology 04/10/24 Herminia Hatch MD [address] [place] [address] Assigned Rheumatology Provider 07/02/24 documented as of this encounter
--- OUTSIDE RECORDS SUMMARY | 2024-08-28 18:21 | XMS_ITS | Encounter Summary ---
Author Organization [facility] Address [address] [place] [address] Care Team Providers Care Allied Health Instructor Name Role Phone Lita Oseguera Unavailable Unavailable Marija Edgar APRN PAINTER STRUCTURAL STEEL Primary Care Provider + Marija Edgar APRN PAINTER STRUCTURAL STEEL Unavailable [phone] Keisha Dotson MD Unavailable Galo Burrell MD Unavailable Unavailable Diana Desir [facility] Unavailable [phone] Rain Galaviz PA-C Unavailable Summer Lara MD Unavailable [phone] Tavia Wyatt MD Unavailable Johnny Murillo MD Unavailable Erica Farrell APRN PAINTER STRUCTURAL STEEL Unavailable Tavia Wyatt MD Unavailable Diana Desir [facility] Unavailable Rich Barrett MD Unavailable Neil [place] MD Unavailable Roney Story DPM Unavailable [phone] Erica Farrell APRN PAINTER STRUCTURAL STEEL Unavailable + Diana Desir [facility] Unavailable Jelena David OD Unavailable Galo Burrell MD Unavailable Unavailable HoLivan MD Unavailable Livan Sharif MD Unavailable IskoCatherine boothe MD Unavailable + Valery Veronica PA-C Unavailable [phone] Catherine Cm MD Unavailable + Johnny Murillo MD Unavailable [phone] Brea Quinn CHAIR UPHOLSTERER PAINTER STRUCTURAL STEEL Unavailable [phone] Brea Quinn CHAIR UPHOLSTERER PAINTER STRUCTURAL STEEL Unavailable [phone] Jose Francisco Johnson MD Unavailable Livan Sharif MD Unavailable + IsCatherine boothe MD Unavailable + Sydnie Martinez RN Unavailable Unavailable Alfonso Renteria MD Unavailable Esha Grimm PA-C Primary Care Provider Cheng Todd PA-C Unavailable Radha Lomeli CHAIR UPHOLSTERER PAINTER STRUCTURAL STEEL Unavailable [phone] Jelena David OD Unavailable Pao Joseph RN Unavailable Unavailable Esha Grimm PA-C Unavailable [phone] Valery Veronica PA-C Unavailable [phone] Rey Tay MD Unavailable Rcoky Zepeda DO Unavailable Philip Dumont MD Unavailable [phone] Meredith Carrera PA-C Unavailable Neil [place] MD Unavailable Juan Pablo Emmanuel MD Unavailable Audrey Waite PA-C Unavailable [phone] Valery Veronica PA-C Unavailable Herminia Hatch MD Unavailable Encounter Details Date Type Department Care Team (Late st Contact Info) Description 12/03/2021 MyC Medical Advice M Physicians [facility] Epilepsy Care [address], [address] [place] [address] Keisha Dotson MD [address] [place] [address] Social History Tobacco Use Types [...] How often do you attend congregational or gnosticism serv ices? Never 09/22/2021 Do [...] Recorded PHQ-2 Score 2 09/22/2021 [facility] of Occupat ional [facility] - [...] a senior care (including now)? No 09/22/2021 [place] Depression Scale Answer Date Recorded [place] Depression Score 5 01/14/2021 Last EPDS Self Harm Result Not on file 01/14 Education Answer Date Recorded What is the highest level of school you have completed or the highest degree you have received? 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 JOB PLACEMENT COUNSELOR Gender Identity Female 03/02/2021 5:45 PM [...] Description 10/23/2024 9:30 AM CDT Office Visit [facility] [address], [address] [place] [address] [place] [address] [address] [place] [address] Johnny Penn MD [address] [place] [address] documented as of this encounter Visit Diagnoses Not on filedocumented in this encounter Additional Health Concerns Infection Onset Date Last Indicated Resolved Time Rule Out COVID-19 12/18/2021 12/18/2021 12/19/2021 11:34 AM CDT Rule Out COVID-19 02/24/2022 02/24/2022 02/25/2022 1:08 PM CDT Rule Out COVID-19 04/26/2022 04/26/2022 04/26/2022 6:47 AM CDT Rule Out COVID-19 05/17/2022 05/17/2022 05/17/2022 10:20 PM JOB PLACEMENT COUNSELOR Rule Out COVID-19 06/09/2022 06/09/2022 06/09/2022 9:35 AM JOB PLACEMENT COUNSELOR COVID-19 06/09/2022 06/09/2022 06/30/2022 11:4 1 PM JOB PLACEMENT COUNSELOR Rule Out COVID-19 11/10/2022 11/10/2022 11/11/2022 12:17 PM CDT Rule Out COVID-19 03/07/2023 03/07/2023 03/07/2023 1:20 PM CDT Rule Out COVID-19 12/26/2023 12/26/2023 12/26/2023 9:50 AM CDT Rule Out COVID-19 04/09/2024 04/09/2024 04/10/2024 6:48 PM CDT Assessment Noted Time PHQ-9 Depression Total Score: 2 04/02/20 10:19 AM CDT documented as of this encounter Care Teams Allied Health Instructor Relationship Specialty Start Date End Date Marija Edgar APRN PAINTER STRUCTURAL STEEL PCP - General Nurse Practitioner 04/30/20 04/14/23 Esha Grimm PA-C [address] [place] [address] PCP - General Family Medicine 05/04/23 Lita Oseguera Personal Advocate & Liaison (PAL) 02/28/20 03/27/23 Marija Edgar APRN PAINTER STRUCTURAL STEEL Assigned PCP 06/08/20 04/29/23 Keisha Dotson MD [address] [place] [address] Assigned Neuroscience Provider 06/04/20 04/01/23 Galo Burrlel MD Assigned Heart and Vascular Provider 10/05/20 04/02/22 [facility] [address] [place] [address] Pharmacist Pharmacist 04/17/21 Rain Galaviz PA-C [address] [facility] [place] [address] Physician Solutions Operator Dermatology 04/28/21 Summer Lara MD [address] [place] [address] 798144 Assigned OBGYN Provider 05/31/21 2 Tavia Wyatt MD [address] [place] [address] 403904 Dermatology 07/14/21 Johnny Murillo MD [address] [place] [address] Assigned Musculoskeletal Provider 08/30/21 03/17/22 Erica Farrell APRN PAINTER STRUCTURAL STEEL [address] [facility] [address] [place], [place] 3209[address] Nurse Practitioner Cardiovascular Disease 09/09/21 Tavia Wyatt MD [address] [place] [address] Assigned Surgical Provider 11/29/21 05/07/22 Diana Desir, [facility] [address] [place] [address] Assigned MTM Pharmacist 01/02/22 Rich Barrett MD [address] [phone] Physician Ophthalmology 01/21/22 Neil [place] MD 500 [place], [place] 926415 Dermatology 02/24/22 [place]PM [address] [facility] [address] [place], [place] 350127 Assigned Musculoskeletal Provider 03/20/22 08/13/22 Erica Farrell APRN PAINTER STRUCTURAL STEEL 1700 [place] [address] Assigned Heart and Vascular Provider 04/03/22 04/16/22 Diana Desir, [facility] 30[address] [place] [address] Assigned MTM Pharmacist 04/07/22 Jel[place] David OD [address] [facility] [place] [address] Assigned Surgical Provider 05/08/22 10/08/22 Galo Burrell MD Assigned Heart and Vascular Provider 04/17/22 06/11/22 Livan Sharif MD [address], [facility] [address] [place] [address] Cardiovascular Disease 05/14/22 Livan Sharif MD [address], [facility] [address] [place] [address] Assigned Heart and Vascular Provider 06/12/22 07/23/22 Catherine Cm MD [address] [facility] [place] [address] Cardiovascular Disease 07/21/22 Valery Veronica, PAUcheC [address] [place] [address] 487865 Physician Solutions Operator Dermatology 07/21/22 Catherine Cm MD [address] [facility] [address] [place] [address] Assigned Heart and Vascular Provider 07/24/22 11/05/22 Johnny Murillo MD [address] [place] [address] [phone] Assigned Musculoskeletal Provider 08/14/22 10/08/22 Brea Quinn APRN PAINTER STRUCTURAL STEEL [address] [place] [address] 400505 Nurse Practitioner Dermatology 09/21/22 Brea Quinn APRN PAINTER STRUCTURAL STEEL [address] [facility] [place] [address] Assigned Surgical Provider 10/09/22 05/01/24 [place] [address] [place] [address] Assigned Musculoskeletal Provider 10/09/22 05/01/24 Livan Sharif MD [address], [facility] [address] [place] [address] Assigned Heart and Vascular Provider 11/06/22 11/12/22 Catherine Cm MD [address] [place] [address] [place] [phone] Assigned Heart and Vascular Provider 11/13/22 05/27/23 Sydnie [place] RN Personal Advocate & Liaison (PAL) Family Medicine 03/28/23 07/31/23 Alfonso Renteria MD [address] [facility] 200 [place] [address] Assigned Neuroscience Provider 04/02/23 Cheng Todd PA-C [address] [place] [address] Assigned PCP 04/30/23 07/15/23 Radha Lomeli APRN PAINTER STRUCTURAL STEEL [address] [place] [address] Assigned Heart and Vascular Provider 05/28/23 Jelena David OD [address] [facility] [address] MD Ophthalmology 06/15/23 Pao Joseph, RN Personal Advocate & Liaison (PAL) Nurse 08/01/23 11/07/23 Esha Grimm PA-C [address] [place] [phone] Assigned PCP 07/16/23 Valery Veronica PA-C [address] [place] [address] 503415 Physician Solutions Operator Dermatology 09/19/23 Rey Tay MD [address] [place] [address] 744605 MD Gastroenterology 09/20/23 Rocky Zepeda DO [address] [place] [address] 128115 Physician Gastroenterology 09/20/23 Philip Dumont MD [address] [place] [address] 474315 Physician Ophthalmology 09/22/23 Meredith Carrera PA-C [address] [place] [address] 317185 Assigned Gastroenterology Provider 11/01/23 Neil [place] MD [address] [place] [address] 248810 Dermatology 11/02/23 [place] [address] [place] [address] Neurological Surgery 12/26/23 Audrey [place] PA-C 500 [place] [address] Physician Solutions Operator Dermatology 02/28/24 Valery Veronica PA-C [id number] [place] [address] Physician Solutions Operator Dermatology 04/10/24 Herminia Hatch MD [address] [place] [address] [phone] Assigned Rheumatology Provider 07/02/24 documented as of this encounter
--- OUTSIDE RECORDS SUMMARY | 2024-08-28 18:21 | XMS_ITS | Encounter Summary ---
Author Organization [facility] Address [address] [place] [address] Care Team Providers Care Livestock Trader Name Role Phone Lita Oseguera Unavailable Unavailable Marija Edgar APRN YARN MERCERIZER OPERATOR Primary Care Provider + Marija Edgar APRN YARN MERCERIZER OPERATOR Unavailable [phone] Keisha Dotson MD Unavailable Galo Burrell MD Unavailable Unavailable Diana Desir [facility] Unavailable Rain Galaviz PA-C Unavailable Summer Lara MD Unavailable [phone] Tavia Wyatt MD Unavailable Johnny Murillo MD Unavailable Erica Farrell APRN YARN MERCERIZER OPERATOR Unavailable Tavia Wyatt MD Unavailable Diana Desir [facility] Unavailable Rich [place] MD Unavailable Neil [place] MD Unavailable Roney Story DPM Unavailable [phone] Erica Farrell APRN YARN MERCERIZER OPERATOR Unavailable + Diana Desir [facility] Unavailable Jelena David OD Unavailable Galo Burrell MD Unavailable Unavailable HoLivan MD Unavailable Livan Sharif MD Unavailable IskoCatherine boothe MD Unavailable + Valery Veronica PA-C Unavailable [phone] Catherine Cm MD Unavailable + Johnny Murillo MD Unavailable [phone] Brea Quinn RESIDENTIAL MANAGER YARN MERCERIZER OPERATOR Unavailable [phone] Brea Quinn RESIDENTIAL MANAGER YARN MERCERIZER OPERATOR Unavailable [phone] Jose Francisco Johnson MD Unavailable Livan Sharif MD Unavailable + IsCatherine boothe MD Unavailable + Sydnie [place] RN Unavailable Unavailable Alfonso Renteria MD Unavailable Esha Gir[place] PA-C Primary Care Provider Cheng Todd PA-C Unavailable Radha Lomeli RESIDENTIAL MANAGER YARN MERCERIZER OPERATOR Unavailable [phone] Jelena David OD Unavailable Pao Joseph RN Unavailable Unavailable Esha Grimm PA-C Unavailable [phone] Valery Veronica PA-C Unavailable [phone] Rey Tay MD Unavailable Rocky Zepeda DO Unavailable Philip Dumont MD Unavailable [phone] Meredith Carrera PA-C Unavailable Neil [place] MD Unavailable Juan Pablo Emmanuel MD Unavailable [phone] Audrey [place] PA-C Unavailable [phone] Valery Veronica PA-C Unavailable [phone] Herminia Hatch MD Unavailable Encounter Details Date Type Department Care Team (Late st Contact Info) Description 12/03/2021 MyC Medical Advice [address] [address] Debbie Hdez MA Social History [...] Answer Date Recorded PHQ-2 Score 2 09/22/2021 [facility] of Occupat [...] in a intermediate (including now)? No 09/22/2021 [place] Depression Scale Answer Date Recorded [place] Depression Score 5 01/14/2021 Last EPDS Self Harm Result Not on file 01/14 Education Answer Date Recorded What is the highest level of school you have completed or the highest degree you have received? 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 E M ASSEMBLER Gender Identity Female 03/02/2021 5:45 PM [...] CDT Office Visit [facility] Neurology [address], [address] [place] [address] [place] [address] [address] [place] 830027 Johnny [place] MD [address] [facility] [place] 919455 documented as of this encounter Visit Diagnoses Not on filedocumented in this encounter Additional Health Concerns Infection Onset Date Last Indicated Resolved Time Rule Out COVID-19 12/18/2021 12/18/2021 12/19/2021 11:34 AM CDT Rule Out COVID-19 02/24/2022 02/24/2022 02/25/2022 1:08 PM CDT Rule Out COVID-19 04/26/2022 04/26/2022 04/26/2022 6:47 AM CDT Rule Out COVID-19 05/17/2022 05/17/2022 05/17/2022 10:20 PM E M ASSEMBLER Rule Out COVID-19 06/09/2022 06/09/2022 06/09/2022 9:35 AM E M ASSEMBLER COVID-19 06/09/2022 06/09/2022 06/30/2022 11:4 1 PM E M ASSEMBLER Rule Out COVID-19 11/10/2022 11/10/2022 11/11/2022 12:17 PM CDT Rule Out COVID-19 03/07/2023 03/07/2023 03/07/2023 1:20 PM CDT Rule Out COVID-19 12/26/2023 12/26/2023 12/26/2023 9:50 AM CDT Rule Out COVID-19 04/09/2024 04/09/2024 04/10/2024 6:48 PM CDT Assessment Noted Time PHQ-9 Depression Total Score: 2 04/02/20 10:19 AM CDT documented as of this encounter Care Teams Livestock Trader Relationship Specialty Start Date End Date Marija Edgar APRN YARN MERCERIZER OPERATOR PCP - General Nurse Practitioner 04/30/20 04/14/23 Esha Grimm PA-C [address] [place] [phone] PCP - General Family Medicine 05/04/23 Lita Oseguera Personal Advocate & Liaison (PAL) 02/28/20 03/27/23 Marija Edgar APRN YARN MERCERIZER OPERATOR Assigned PCP 06/08/20 04/29/23 Keisha Dotson MD 909 [place] [address] Assigned Neuroscience Provider 06/04/20 04/01/23 Galo Burrell MD Assigned Heart and Vascular Provider 10/05/20 04/02/22 Diana Desir, [facility] [address] [place] [address] Pharmacist Pharmacist 04/17/21 Rain Galaviz PA-C [address] [place] [address] [address] [place], [place] [phone] Physician Director Of Outpatient Services Dermatology 04/28/21 Summer Lara MD [address] [place] [address] 817794 Assigned OBGYN Provider 05/31/21 2 Tavia Wyatt MD [address] [place] [address] Dermatology 07/14/21 Johnny Murillo MD [facility] [address] [place], [place] 788[address] Assigned Musculoskeletal Provider 08/30/21 03/17/22 Erica Farrell APRN YARN MERCERIZER OPERATOR [address] [facility] [address] [place], [place] 518025 Nurse Practitioner Cardiovascular Disease 09/09/21 Tavia Wyatt MD [address] [place] [address] Assigned Surgical Provider 11/29/21 05/07/22 Diana Desir, [facility] 3033 [place] [address] Assigned MTM Pharmacist 01/02/22 Rich Barrett MD [address] 222335 Physician Ophthalmology 01/21/22 Neil [place] MD 500 [place], [place] 718605 Dermatology 02/24/22 Roney Story DPM [address] [facility] [address] [place], [place] 110697 Assigned Musculoskeletal Provider 03/20/22 08/13/22 Erica Farrell APRN YARN MERCERIZER OPERATOR 1700 [place] [address] Assigned Heart and Vascular Provider 04/03/22 04/16/22 Diana Desir, [facility] [address] [place] [address] Assigned MTM Pharmacist 04/07/22 Jelena David OD [address] [facility] [place] [address] Assigned Surgical Provider 05/08/22 10/08/22 Galo Burrell MD Assigned Heart and Vascular Provider 04/17/22 06/11/22 Livan Sharif MD [address] [address] [place] [address] Cardiovascular Disease 05/14/22 Livan Sharif MD [address] [place] [address] [place] [address] Assigned Heart and Vascular Provider 06/12/22 07/23/22 Catherine Cm MD [address] [place] [address] Cardiovascular Disease 07/21/22 Valery Veronica, PA-C [address] [place] [address] 389845 Physician Director Of Outpatient Services Dermatology 07/21/22 Catherine Cm MD [address] [place] [address] Assigned Heart and Vascular Provider 07/24/22 11/05/22 Johnny Murillo MD [facility] [address] 917564 Assigned Musculoskeletal Provider 08/14/22 10/08/22 Brea Quinn APRN YARN MERCERIZER OPERATOR [address] [place] [address] 057835 Nurse Practitioner Dermatology 09/21/22 Brea Quinn APRN YARN MERCERIZER OPERATOR [address] [place] [address] [place] 846242 Assigned Surgical Provider 10/09/22 05/01/24 [place] [address] [place] [address] Assigned Musculoskeletal Provider 10/09/22 05/01/24 Livan Sharif MD [address] [place] [address] Assigned Heart and Vascular Provider 11/06/22 11/12/22 Catherine Cm MD [address] [place] [address] Assigned Heart and Vascular Provider 11/13/22 05/27/23 Sydnie [place] RN Personal Advocate & Liaison (PAL) Family Medicine 03/28/23 07/31/23 Alfonso Renteria MD [address] [facility] 200 [place], [place] 459536 Assigned Neuroscience Provider 04/02/23 Cheng Todd PA-C [address] [place] [address] [phone] Assigned PCP 04/30/23 07/15/23 Radha Lomeli, RESIDENTIAL MANAGER YARN MERCERIZER OPERATOR [address] [place] [address] Assigned Heart and Vascular Provider 05/28/23 Jelena David OD [address] [facility] [place] [address] Ophthalmology 06/15/23 Pao Joseph, VJ Personal Advocate & Liaison (PAL) Nurse 08/01/23 11/07/23 Esha Grimm PA-C [address] [place] [address] Assigned PCP 07/16/23 Valery Veronica PA-C [address] [place] [address] 566605 Physician Director Of Outpatient Services Dermatology 09/19/23 Rey Tay MD [address] [place] [address] 928075 MD Gastroenterology 09/20/23 Rocky Zepeda DO [address] [place] [address] 449065 Physician Gastroenterology 09/20/23 Philip Dumont MD [address] [place] [address] 395045 Physician Ophthalmology 09/22/23 Meredith Carrera PA-C [address] [place] [address] 258095 Assigned Gastroenterology Provider 11/01/23 Neil [place] MD [address] [address] Dermatology 11/02/23 [place] [address] [place] [address] Neurological Surgery 12/26/23 Audrey Waite PA-C 500 [place] [address] Physician Director Of Outpatient Services Dermatology 02/28/24 Valery Veronica PA-C [address] [place] [address] Physician Director Of Outpatient Services Dermatology 04/10/24 Herminia Hatch MD [address] [place] [address] Assigned Rheumatology Provider 07/02/24 documented as of this encounter
--- OUTSIDE RECORDS SUMMARY | 2024-08-28 18:21 | XMS_ITS | Encounter Summary ---
Author Organization [facility] Address [address] [place] [address] Care Team Providers Care Tankage Supervisor Name Role Phone Lita Oseguera Unavailable Unavailable Marija Edgar APRN FIRE PROTECTION FABRICATOR Primary Care Provider + Chanelle Mccann APRN CNM Unavailab le Kyara De La Fuente RN Unavailable [phone] Marija Edgar APRN FIRE PROTECTION FABRICATOR Unavailable Mynor Broussard MD Unavailable [phone] Keisha Dotson MD Unavailable Stacey Briones HOGSHEAD STRIPPER Unavailable [phone] Lesley Guillermo CHW Unavailable Mary Mejia Unavailable Unavailable Lita Oseguera Unavailable Unavailable Galo Burrell MD Unavailable Unavailable Cristina Wood Unavailable Lesley Guillermo CHW Unavailable Meredith Bedoya Unavailable Unavailable Cristina Wood Unavailable Diana Desir [facility] Unavailable Rani Galaviz PA-C Unavailable Summer Lara MD Unavailable [phone] Summer Lara MD Unavailable [phone] Summer Lara MD Unavailable [phone] Tavia Wyatt MD Unavailable [phone] Johnny Murillo MD Unavailable +[phone]- Erica Farrell APRN FIRE PROTECTION FABRICATOR Unavailable + Vikas Teresita Ka Walter H Unavailable Tavia Wyatt MD Unavailable [phone] Diana Desir [facility] Unavailable [phone] Rich Brarett MD Unavailable [phone] Neil Kent MD Unavailable Roney StoryM Unavailable [phone] Erica Farrell APRN FIRE PROTECTION FABRICATOR Unavailable + Diana Desir [facility] Unavailable [phone] Jelena David OD Unavailable [phone] Galo Burrell MD Unavailable Unavailable Livan Sharif MD Unavailable + Livan Sharif MD Unavailable + Catherine Cm MD Unavailable + Valery Veronica PA-C Unavailable [phone] Catherine Cm MD Unavailable + Johnny Murillo MD Unavailable +1- Brea Quinn APRN FIRE PROTECTION FABRICATOR Unavailable +[phone] Brea Quinn APRN FIRE PROTECTION FABRICATOR Unavailable [phone] Jose Francisco Johnson MD Unavailable + Livan Sharif MD Unavailable + Catherine Cm MD Unavailable + Sydnie Martinez RN Unavailable Unavailable Alfonso Renteria MD Unavailable [phone] Esha Grimm PA-C Primary Care Provider Cheng Todd PA-C Unavailable Radha Lomeli APRN FIRE PROTECTION FABRICATOR Unavailable FrankieJelena OD Unavailable Pao Joseph RN Unavailable Unavailable Esha Grimm PA-C Unavailable [phone] Valery Veronica PA-C Unavailable Rey Tay MD Unavailable Rocky Zepeda DO Unavailable Philpi Dumont MD Unavailable [phone] Meredith Carrera PA-C Unavailable [phone] Neil Kent MD Unavailable Juan Pablo Emmanuel MD Unavailable [phone] Audrey Waite PA-C Unavailable JeremíasValery damon PA-C Unavailable Herminia Hatch MD Unavailable Encounter Details Date Type Department Care Team (Late st Contact Info) Description 08/24/[address] [facility] [id number] [place] [phone] Marija Edgar APRN FIRE PROTECTION FABRICATOR [address] [place] [address] Social History Tobacco Use Types Packs/Day [...] do you attend [facility] or buddhism services? More than 4 [...] Date Recorded PHQ-2 Score 0 08/12/2020 [place] [facility] - Occupational Stress [...] PM CDT Legal Sex Female 4:13 AM PULPWOOD DEALER Gender Identity Female 03/02/2021 5:45 PM CDT Sexual Orientation Straight 02/28/2020 12 :51 AM CDT COVID-19 Exposure Response Date Recorded In the last month, have you been in contact with someone who was confirmed or suspected to have Coronavirus / COVID-19? No / Unsure 08/20/2020 12:47 PM PULPWOOD DEALER documented as of this encounter Miscellaneous Notes * Telephone Encounter - Marija Edgar APRN CNP - 08/25/2020 11:47 AM PULPWOOD DEALER Replied via MyChart Marija Edgar APRN FIRE PROTECTION FABRICATOR on 08/25/2020 at 11:51 AM WOOD DEALER documented in this encounter Plan of Treatment Upcoming Encounters Date Type Department Care Team (Late st Contact Info) Description 10/23/2024 9:30 AM CDT Office Visit [facility] Neurology [address], [address] [place] [address] [place] [address] [place] [phone] Johnny Penn MD [address] [facility] [place] [address] documented as of this encounter Visit Diagnoses Not on filedocumented in this encounter Additional Health Concerns Infection Onset Date Last Indicated Resolved Time Rule Out COVID-19 08/30/2020 08/30/2020 08/30/2020 5:05 PM PULPWOOD DEALER Rule Out COVID-19 09/24/2020 09/24/2020 09/24/2020 9:24 AM CDT Rule Out COVID-19 11/05/2020 11/05/2020 11/06/2020 1:09 PM CDT Rule Out COVID-19 05/11/2021 05/11/2021 05/13/2021 10:18 AM CDT Rule Out COVID-19 07/13/2021 07/13/2021 07/14/2021 3:04 PM PULPWOOD DEALER Rule Out COVID-19 07/18/2021 07/18/2021 07/20/2021 1:56 PM PULPWOOD DEALER COVID-19 07/18/2021 07/18/2021 08/08/2021 11:3 9 PM PULPWOOD DEALER Rule Out COVID-19 12/18/2021 12/18/2021 12/19/2021 11:34 AM CDT Rule Out COVID-19 02/24/2022 02/24/2022 02/25/2022 1:08 PM CDT Rule Out COVID-19 04/26/2022 04/26/2022 04/26/2022 6:47 AM CDT Rule Out COVID-19 05/17/2022 05/17/2022 05/17/2022 10:20 PM PULPWOOD DEALER Rule Out COVID-19 06/09/2022 06/09/2022 06/09/2022 9:35 AM PULPWOOD DEALER COVID-19 06/09/2022 06/09/2022 06/30/2022 11:4 1 PM PULPWOOD DEALER Rule Out COVID-19 11/10/2022 11/10/2022 11/11/2022 12:17 PM CDT Rule Out COVID-19 03/07/2023 03/07/2023 03/07/2023 1:20 PM CDT Rule Out COVID-19 12/26/2023 12/26/2023 12/26/2023 9:50 AM CDT Rule Out COVID-19 04/09/2024 04/09/2024 04/10/2024 6:48 PM CDT Assessment Noted Time PHQ-9 Depression Total Score: 9 06/25/20 20 7:04 AM PULPWOOD DEALER documented as of this encounter Care Teams Tankage Supervisor Relationship Specialty Start Date End Date Marija Edgar APRN CNP PCP - General Nurse Practitioner 04/30/20 04/14/23 Esha Grimm PA-C [address] [place] [address] PCP - General Family Medicine 05/04/23 Lita Oseguera Personal Advocate & Liaison (PAL) 02/28/20 03/27/23 [place] [address] [address] [facility], [facility] 200 [place], [place] 24[address] Assigned OBGYN Provider 05/02/2005/09 Kyara De La Fuente, RN Specialty Biomedical Engineering Supervisor Neurology 06/04/20 03/05/21 Marija Edgar APRN FIRE PROTECTION FABRICATOR Assigned PCP 06/08/20 04/29/23 Mynor Broussard MD [address] [facility] 500 [place], [place] 5[address] Assigned Surgical Provider 06/01/20 11/28/21 Keisha Dotson MD 9 [place], [place] 5[address] Assigned Neuroscience Provider 06/04/20 04/01/23 Stacey Briones, [facility] Lead Biomedical Engineering Supervisor Primary Care - CC 08/11/2012/30 Lesley Guillermo, [facility] Community Health Worker 08/11/2010/01 Mary Mejia Financial Resource Worker 09/02/20 10/06/20 Lita Oseguera Personal Advocate & Liaison (PAL) Family Medicine 09/10/20 09/21/20 Galo Burrell MD Assigned Heart and Vascular Provider 10/05/20 04/02/22 Cristina Wood Financial Resource Worker 10/07/20 10/14/20 Lesley Guillermo, [facility] Community Health Worker 10/23/2012/30 Meredith Bedoya Financial Resource Worker 10/23/20 11/23/20 AilynCristina younger Financial Resource Worker 02/09/21 02/09/21 Diana Desir, [facility] [address] [place] [address] Pharmacist Pharmacist 04/17/21 Rain Galaviz PA-C [address] [facility] [place] [address] Physician Head Of Research & Insights Dermatology 04/28/21 Summer Lara MD [address] [place] [address] Assigned OBGYN Provider 05/10/2105/23 Summer Lara MD [address] [place], [place] [address] Assigned OBGYN Provider 05/31/21 Summer Lara MD [address] [place] [address] Assigned OBGYN Provider 05/24/2105/30 Tavia Wyatt MD [address] [place], [place] [address] Dermatology 07/14/21 Johnny Murillo MD [address] [facility] [address] [place] [address] Assigned Musculoskeletal Provider 08/30/21 03/17/22 StoesErica youssef APRN FIRE PROTECTION FABRICATOR [address] [facility] [address] [place], [place] [address] Nurse Practitioner Cardiovascular Disease 09/09/21 Teresita Bean, [facility] [address] [place] [address] Pharmacist Pharmacist 09/24/21 09/29/21 Tavia Wyatt MD [address] [place] [address] Assigned Surgical Provider 11/29/21 05/07/22 [facility] 3033 [place] [address] Assigned MTM Pharmacist 01/02/22 Rich Barrett MD [address] [facility] [address] [place], [place] [address] Physician Ophthalmology 01/21/22 Neil Kent MD [address] [place], [place] 0[address] Dermatology 02/24/22 Roney Story DPM [address] [facility] [address] [place] [address] Assigned Musculoskeletal Provider 03/20/22 08/13/22 Erica Farrell APRN FIRE PROTECTION FABRICATOR 1700 [place] [address] Assigned Heart and Vascular Provider 04/03/22 04/16/22 Diana Desir [facility] [address] [place], [place] [address] Assigned MTM Pharmacist 04/07/22 Jelena David OD [address] [facility] [place] [address] Assigned Surgical Provider 05/08/22 10/08/22 Galo Burrell MD Assigned Heart and Vascular Provider 04/17/22 06/11/22 Livan Sharif MD [address] [place] [address] Cardiovascular Disease 05/14/22 Livan Sharif MD [address] [place] [address] Assigned Heart and Vascular Provider 06/12/22 07/23/22 Catherine Cm MD [address] [facility] [address] [place] [address] Cardiovascular Disease 07/21/22 Valery Veronica, PA-C [address] [place], [place] [address] Physician Head Of Research & Insights Dermatology 07/21/22 Catherine Cm MD [address] [place] [address] Assigned Heart and Vascular Provider 07/24/22 11/05/22 Johnny Murillo MD [address] [address] Assigned Musculoskeletal Provider 08/14/22 10/08/22 Brea Quinn APRN FIRE PROTECTION FABRICATOR 500 [place] [address] Nurse Practitioner Dermatology 09/21/22 Brea Quinn APRN FIRE PROTECTION FABRICATOR 6401 [place] [address] Assigned Surgical Provider 10/09/22 05/01/24 [place] [address] [facility] 300 [place] [address] Assigned Musculoskeletal Provider 10/09/22 05/01/24 Livan Sharif MD [address] [place], [facility] [address] [place] [address] Assigned Heart and Vascular Provider 11/06/22 11/12/22 Catherine Cm MD [address] [facility] [address] [place], [place] [address] Assigned Heart and Vascular Provider 11/13/22 05/27/23 Sydnie Martinez RN Personal Advocate & Liaison (PAL) Family Medicine 03/28/23 07/31/23 Alfonso Renteria MD [address] [facility] 200 [place] [address] Assigned Neuroscience Provider 04/02/23 Cheng Todd PA-C [address] [place] [address] [id number] Assigned PCP 04/30/23 07/15/23 Radha Lomeli APRN FIRE PROTECTION FABRICATOR [address] [place] [address] Assigned Heart and Vascular Provider 05/28/23 Jelena David OD [address] [facility] [place] [address] Ophthalmology 06/15/23 Pao Joseph, VJ Personal Advocate & Liaison (PAL) Nurse 08/01/23 11/07/23 Esha Grimm PA-C [address] [place] [phone] Assigned PCP 07/16/23 Valery Veronica PA-C [address] [place] [address] Physician Head Of Research & Insights Dermatology 09/19/23 Rey Tay MD [address] [place] [address] 646155 Gastroenterology 09/20/23 Rocky Zepeda DO [address] [place] [address] 041135 Physician Gastroenterology 09/20/23 Philip Dumont MD [address] [place] [address] 349555 Physician Ophthalmology 09/22/23 Meredith Carrera PA-C [address] [place] [address] Assigned Gastroenterology Provider 11/01/23 Neil Kent MD [address] [address] Dermatology 11/02/23 [place] [address] [place] [address] [address] Neurological Surgery 12/26/23 Audrey Waite PA-C 500 [place] [address] Physician Head Of Research & Insights Dermatology 02/28/24 Valery Veronica PA-C [address] [place] [address] Physician Head Of Research & Insights Dermatology 04/10/24 Herminia Hatch MD [facility]5 [place], [place] [address] Assigned Rheumatology Provider 07/02/24 documented as of this encounter
--- OUTSIDE RECORDS SUMMARY | 2024-08-28 18:21 | XMS_ITS | Encounter Summary ---
Author Organization [facility] Address [address] [place] [address] Care Team Providers Care Electronics Parts Sales Representative Name Role Phone Lita Oseguera Unavailable Unavailable Marija Edgar APRN PARKING LOT SPOTTER Primary Care Provider + Marija Edgar APRN PARKING LOT SPOTTER Unavailable [phone] Keisha Dotson MD Unavailable [phone] Galo Burrell MD Unavailable Unavailable Diana Desir [facility] Unavailable Rain Galaviz PA-C Unavailable Summer Lara MD Unavailable [phone] Tavia Wyatt MD Unavailable Johnny Murillo MD Unavailable Erica Farrell APRN PARKING LOT SPOTTER Unavailable Tavia Wyatt MD Unavailable Diana Desir [facility] Unavailable Rich Barrett MD Unavailable Neil Kent MD Unavailable Roney Story DPM Unavailable [phone] Erica Farrell APRN PARKING LOT SPOTTER Unavailable + Diana Desir [facility] Unavailable Jelena David OD Unavailable Galo Burrell MD Unavailable Unavailable HoLivan MD Unavailable Livan Sharif MD Unavailable IskoCatherine boothe MD Unavailable + Valery Veronica PA-C Unavailable [phone] Catherine Cm MD Unavailable + Johnny Murillo MD Unavailable [phone] Brea Quinn NATIONAL GUARD MEMBER PARKING LOT SPOTTER Unavailable [phone] Brea Quinn NATIONAL GUARD MEMBER PARKING LOT SPOTTER Unavailable [phone] Jose Francisco Johnson MD Unavailable Livan Sharif MD Unavailable + IsCatherine boothe MD Unavailable + Sydnie Martinez RN Unavailable Unavailable Alfonso Renteria MD Unavailable Esha Grimm PA-C Primary Care Provider Cheng Todd PA-C Unavailable Radha Lomeli NATIONAL GUARD MEMBER PARKING LOT SPOTTER Unavailable [phone] Jelena David OD Unavailable Pao Joseph RN Unavailable Unavailable Esha Grimm PA-C Unavailable [phone] Valery Veronica PA-C Unavailable [phone] Rey Tay MD Unavailable Rocky Zepeda DO Unavailable Philip Dumont MD Unavailable [phone] Meredith Carrera PA-C Unavailable [phone] Neil Kent MD Unavailable Juan Pablo Emmanuel MD Unavailable [phone] Audrey Waite PA-C Unavailable [phone] Valery Veronica PA-C Unavailable [phone] Herminia Hatch MD Unavailable Encounter Details Date Type Department Care Team (Late st Contact Info) Description 12/18/2021 Telephone [facility] [address] [place] [phone] Lauren Claudio PA-C [address] [place] [address] Social History Tobacco Use Types Packs/Day [...] How often do you attend rastafari or amish serv ices? Never 09/22/2021 Do [...] a nursing home (including now)? No 09/22/2021 [place] Depression Scale Answer Date Recorded [place] Depression Score 5 01/14/2021 Last EPDS Self Harm Result Not on file 01/14 Education Answer Date Recorded What is the highest level of school you have completed or the highest degree you have received? 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 ACTIVITY COORDINATOR Gender Identity Female 03/02/2021 5:45 PM [...] be reached at: Home number on file [phone] (home) Best Time: ANYTIME Can we leave a detailed message on this number? YES Call taken on 12/18/2021 at 11:01 AM by Amalia Deluca documented in this encounter Plan of Treatment Upcoming Encounters Date Type Department Care Team (Late st Contact Info) Description 10/23/2024 9:30 AM CDT Office Visit [facility] Neurology [facility] [address] [facility], [address] [place] [address] [place] [address] [place], [place] [address] Johnny Penn MD [address] [place], [place] [address] documented as of this encounter Visit Diagnoses Not on filedocumented in this encounter Additional Health Concerns Infection Onset Date Last Indicated Resolved Time Rule Out COVID-19 12/18/2021 12/18/2021 12/19/2021 11:34 AM CDT Rule Out COVID-19 02/24/2022 02/24/2022 02/25/2022 1:08 PM CDT Rule Out COVID-19 04/26/2022 04/26/2022 04/26/2022 6:47 AM CDT Rule Out COVID-19 05/17/2022 05/17/2022 05/17/2022 10:20 PM ACTIVITY COORDINATOR Rule Out COVID-19 06/09/2022 06/09/2022 06/09/2022 9:35 AM ACTIVITY COORDINATOR COVID-19 06/09/2022 06/09/2022 06/30/2022 11:4 1 PM ACTIVITY COORDINATOR Rule Out COVID-19 11/10/2022 11/10/2022 11/11/2022 12:17 PM CDT Rule Out COVID-19 03/07/2023 03/07/2023 03/07/2023 1:20 PM CDT Rule Out COVID-19 12/26/2023 12/26/2023 12/26/2023 9:50 AM CDT Rule Out COVID-19 04/09/2024 04/09/2024 04/10/2024 6:48 PM CDT Assessment Noted Time PHQ-9 Depression Total Score: 2 12/19/19 2:50 PM CDT documented as of this encounter Care Teams Electronics Parts Sales Representative Relationship Specialty Start Date End Date Marija Edgar APRN PARKING LOT SPOTTER PCP - General Nurse Practitioner 04/30/20 04/14/23 Esha Grimm PA-C [address] [place] [phone] PCP - General Family Medicine 05/04/23 Lita Oseguera Personal Advocate & Liaison (PAL) 02/28/20 03/27/23 Marija Edgar APRN PARKING LOT SPOTTER Assigned PCP 06/08/20 04/29/23 Keisha Dotson MD [address] [place], [place] 3[address] Assigned Neuroscience Provider 06/04/20 04/01/23 Galo Burrell MD Assigned Heart and Vascular Provider 10/05/20 04/02/22 Diana Desir, [facility] 30[address] [place] [address] Pharmacist Pharmacist 04/17/21 Rain Galaviz PA-C [address] [facility] [place] [address] Physician First Officer And Flight Instructor Dermatology 04/28/21 Summer Lara MD [address] [place] [address] Assigned OBGYN Provider 05/31/21 2 Tavia Wyatt MD [address] [place] [address] Dermatology 07/14/21 Johnny Murillo MD [address] [place] [address] Assigned Musculoskeletal Provider 08/30/21 03/17/22 Erica Farrell APRN PARKING LOT SPOTTER [address] [place] [address] Nurse Practitioner Cardiovascular Disease 09/09/21 Tavia Wyatt MD [address] [place] [address] Assigned Surgical Provider 11/29/21 05/07/22 [facility] 3033 [place] [address] Assigned MTM Pharmacist 01/02/22 Rich Barrett MD [address] [facility] [address] [place], [place] [address] Physician Ophthalmology 01/21/22 Neil Kent MD 500 [place], [place] [address] Dermatology 02/24/22 [place]oney Story DPM [address] [facility] 300 [place] [address] Assigned Musculoskeletal Provider 03/20/22 08/13/22 Erica Farrell APRN PARKING LOT SPOTTER 1700 [place] [address] Assigned Heart and Vascular Provider 04/03/22 04/16/22 Diana Desir, [facility] [address] [place] [address] Assigned MTM Pharmacist 04/07/22 Jelena David OD [address] [facility] [address] Assigned Surgical Provider 05/08/22 10/08/22 Galo Burrell MD Assigned Heart and Vascular Provider 04/17/22 06/11/22 Livan Sharif MD [address] [place] [address] Cardiovascular Disease 05/14/22 Livan Sharif MD [address] [place] [address] Assigned Heart and Vascular Provider 06/12/22 07/23/22 Catherine Cm MD [address] [place] [address] Cardiovascular Disease 07/21/22 Valery Veronica, PAUcheC 909 [place] [address] Physician First Officer And Flight Instructor Dermatology 07/21/22 Catherine Cm MD [address] [place] [address] Assigned Heart and Vascular Provider 07/24/22 11/05/22 Johnny Murillo MD [address] [place] [address] Assigned Musculoskeletal Provider 08/14/22 10/08/22 Brea Quinn APRN PARKING LOT SPOTTER [address] [place] [address] Nurse Practitioner Dermatology 09/21/22 Brea Quinn APRN PARKING LOT SPOTTER [address] [place] [address] [place] [address] Assigned Surgical Provider 10/09/22 05/01/24 [place] [address] [facility] [address] [address] Assigned Musculoskeletal Provider 10/09/22 05/01/24 Livan Sharif MD [address] [facility] [address] [place] [address] Assigned Heart and Vascular Provider 11/06/22 11/12/22 Catherine Cm MD [address] [facility] [address] [place] [address] Assigned Heart and Vascular Provider 11/13/22 05/27/23 Sydnie Martinez RN Personal Advocate & Liaison (PAL) Family Medicine 03/28/23 07/31/23 Alfonso Renteria MD [address] [facility] 200 [place] [address] Assigned Neuroscience Provider 04/02/23 Cheng Todd PA-C [address] [place] [address] Assigned PCP 04/30/23 07/15/23 Radha Lomeli APRN PARKING LOT SPOTTER [address] [facility] [address] [place] [address] Assigned Heart and Vascular Provider 05/28/23 Jelena David OD [address] [facility] [place] [address] Ophthalmology 06/15/23 Pao Joseph, VJ Personal Advocate & Liaison (PAL) Nurse 08/01/23 11/07/23 Esha Grimm PA-C [address] [place] [phone] Assigned PCP 07/16/23 Valery Veronica PA-C [address] [place] [address] 394745 Physician First Officer And Flight Instructor Dermatology 09/19/23 Rey Tay MD [address] [place] [address] 477635 Gastroenterology 09/20/23 Rocky Zepeda DO [address] [place] [address] 8[address]645 Physician Gastroenterology 09/20/23 Philip Dumont MD [address] [place] [address] Physician Ophthalmology 09/22/23 Meredith Carrera PA-C [address] [place] [address] Assigned Gastroenterology Provider 11/01/23 Neil Kent MD [address] [address] Dermatology 11/02/23 [place] [address] [facility] [address] [address] [address] Neurological Surgery 12/26/23 Audrey Waite PA-C [address] [place] [address] Physician First Officer And Flight Instructor Dermatology 02/28/24 Valery Veronica PA-C 970840 [address], [place] [address] Physician First Officer And Flight Instructor Dermatology 04/10/24 Herminia Hatch MD [facility]5 [place], [place] [address] Assigned Rheumatology Provider 07/02/24 documented as of this encounter
--- OUTSIDE RECORDS SUMMARY | 2024-08-28 18:21 | XMS_ITS | Encounter Summary ---
Author Organization [place] Address [address] [place] [address] Care Team Providers Care Counseling Center Director Name Role Phone Diana Desir [facility] Unavailable Rain Galaviz PA-C Unavailable Tavia Wyatt MD Unavailable Erica Farrell APRN BUSINESS SERVICES ANALYST Unavailable Rich Barrett MD Unavailable [phone] Neil Kent MD Unavailable Diana Desir [facility] Unavailable Livan Sharif MD Unavailable Catherien Cm MD Unavailable + Valery Veronica-C Unavailable Brea Quinn PHYSICAL ANTHROPOLOGIST BUSINESS SERVICES ANALYST Unavailable Brea Quinn PHYSICAL ANTHROPOLOGIST BUSINESS SERVICES ANALYST Unavailable Jose Francisco Johnson MD Unavailable Sydnie Martinez RN Unavailable Unavailable Alfonso Renteria MD Unavailable [phone] Esha Grimm PA-C Primary Care Provider hCeng Todd PA-C Unavailable Radha Lomeli APRN BUSINESS SERVICES ANALYST Unavailable Jelena David OD Unavailable Pao Joseph RN Unavailable Unavailable Esha Grimm PA-C Unavailable [phone] Valery Veronica PA-C Unavailable [phone] Rey Tay MD Unavailable Rocky Zepeda DO Unavailable Philip Dumont MD Unavailable Meredith Carrera PA-C Unavailable Neil Kent MD Unavailable Juan Pablo Emmanuel MD Unavailable [phone] Audrey Waite PA-C Unavailable JeremíasValery damon PA-C Unavailable Hermniia Hatch MD Unavailable Encounter Details Date Type Department Care Team (Late st Contact Info) Description 06/15/2023 MyC Medical Advice [facility] Gastroenterology Clinic [address] [address] Doris Levi Social History Tobacco [...] attend [facility] or jew services? 1 to 4 times per year 03/10/2023 Do you belong to any clubs o r organizations such as lutheran groups, unions, fralark or athletic groups, or school groups? No [...] Answer Date Recorded PHQ-2 Score 1 05/16/2023 [facility]ational Stress [...] exercise at this level? 30 min 03/10/2023 [place] Depression Scale Answer Date Recorded [place] Depression Score 5 01/14/2021 Last EPDS [...] an overnight care home, or couch-surfing.) Yes 04/18/2023 Are you [...] CDT Legal Sex Female 4:13 AM RISK AND COMPLIANCE ANALYTICS DIRECTOR Gender Identity Female 03/02/2021 5:45 PM CDT Sexual Orientation Straight 02/28/2020 12 :51 AM CDT documented as of this encounter Plan of Treatment Upcoming Encounters Date Type Department Care Team (Late st Contact Info) Description 10/23/2024 9:30 AM CDT Office Visit [facility] Neurology [facility] - [address], [address] [place] [address] [place] [address] [place] [address] Johnny Penn MD [address] [place] [address] documented as of this encounter Visit Diagnoses Not on filedocumented in this encounter Additional Health Concerns Infection Onset Date Last Indicated Resolved Time Rule Out COVID-19 12/26/2023 12/26/2023 12/26/2023 9:50 AM CDT Rule Out COVID-19 04/09/2024 04/09/2024 04/10/2024 6:48 PM CDT Assessment Noted Time PHQ-9 Depression Total Score: 6 05/16/20 9:29 AM RISK AND COMPLIANCE ANALYTICS DIRECTOR documented as of this encounter Care Teams Counseling Center Director Relationship Specialty Start Date End Date Esha Grimm PA-C [address] [place] [address] PCP - General Family Medicine 05/04/23 Diana Desir, [facility] [address] [place] [address] Pharmacist Pharmacist 04/17/21 Rain Galaviz PA-C [address] [place] [address] [address] [place] [address] Physician Hot Saw Operator Dermatology 04/28/21 Tavia Wyatt MD [address] [place] [address] [address] [place] [address] Dermatology 07/14/21 Erica Farrell APRN BUSINESS SERVICES ANALYST [address] [facility] [address] [place] [address] Nurse Practitioner Cardiovascular Disease 09/09/21 Rich Barrett MD 6 [facility] [address] [place] [address] Physician Ophthalmology 01/21/22 Neil Kent MD 500 [place], [place] 427745 Dermatology 02/24/22 Diana Desir, [facility] [address] [place] [address] Assigned MTM Pharmacist 04/07/22 Livan Sharif MD [address] [facility]00 [place] [address] Cardiovascular Disease 05/14/22 Catherine Cm MD [address] [place] [address] Cardiovascular Disease 07/21/22 Valery Veronica, PA-C [address] [place], [place] 498715 Physician Hot Saw Operator Dermatology 07/21/22 Brea Quinn APRN BUSINESS SERVICES ANALYST 500 [place] [address] Nurse Practitioner Dermatology 09/21/22 Brea Quinn APRN BUSINESS SERVICES ANALYST [address] [facility] [place] [address] Assigned Surgical Provider 10/09/22 05/01/24 [place] [address] [place] [address] Assigned Musculoskeletal Provider 10/09/22 05/01/24 Sydnie Martinez, RN Personal Advocate & Liaison (PAL) Family Medicine 03/28/23 07/31/23 Alfonso Renteria MD 5775 [facility] [address] [place] [address] Assigned Neuroscience Provider 04/02/23 Cheng Todd PA-C [address] [place] [address] [phone] Assigned PCP 04/30/23 07/15/23 Radha Lomeli APRN BUSINESS SERVICES ANALYST [address] [facility] [address] [place], [place] 4546[address] Assigned Heart and Vascular Provider 05/28/23 Jelena David OD [address] [facility] [place] [address] Ophthalmology 06/15/23 Pao Joseph, VJ Personal Advocate & Liaison (PAL) Nurse 08/01/23 11/07/23 Esha Grimm PA-C [address] [place] [phone] Assigned PCP 07/16/23 Valery Veronica PA-C [address] [place] [address] Physician Hot Saw Operator Dermatology 09/19/23 Rey Tay MD [address] [place], [place] [address] Gastroenterology 09/20/23 Rocky Zepeda DO 500 [place] [address] Physician Gastroenterology 09/20/23 Philip Dumont MD [address] [place] [address] Physician Ophthalmology 09/22/23 Meredith Carrera PA-C [address]09 [place] [address] Assigned Gastroenterology Provider 11/01/23 Neil Kent MD [address] [address] Dermatology 11/02/23 [place] [address] [address] Neurological Surgery 12/26/23 Audrey Waite PA-C 500 [place] [address] Physician Hot Saw Operator Dermatology 02/28/24 Valery Veronica PA-C [address] [place] [address] Physician Hot Saw Operator Dermatology 04/10/24 Herminia Hatch MD [facility]5 [place], [place] [id number] Assigned Rheumatology Provider 07/02/24 documented as of this encounter
--- OUTSIDE RECORDS SUMMARY | 2024-08-28 18:21 | XMS_ITS | Encounter Summary ---
Author Organization [place] Address [address] [place] [address] Care Team Providers Care Geologic Technician Name Role Phone Lita Oseguera Unavailable Unavailable Marija Edgar APRN BUSINESS OPERATIONS SPECIALIST Primary Care Provider + Chanelle Mccann APRN CNM Unavailab le Kyara De La Fuente RN Unavailable [phone] Marija Edgar APRN BUSINESS OPERATIONS SPECIALIST Unavailable Mynor Broussard MD Unavailable [phone] Keisha Dotson MD Unavailable [phone] Stacey Briones ANDROID UI DEVELOPER Unavailable Lesley Guillermo CHW Unavailable Mary Mejia Unavailable Unavailable Lita Oseguera Unavailable Unavailable Galo Burrell MD Unavailable Unavailable Cristina Wood Unavailable Lesley Guillermo CHW Unavailable Meredith Bedoya Unavailable Unavailable Cristina Wood Unavailable Diana Desir [facility] Unavailable Rain Galaviz PA-C Unavailable Summer Lara MD Unavailable [phone] Summer Lara MD Unavailable [phone] Summer Lara MD Unavailable [phone] Tavia Wyatt MD Unavailable [phone] Johnny Murillo MD Unavailable +1- Erica Farrell APRN BUSINESS OPERATIONS SPECIALIST Unavailable + Vikas Teresita Ka Walter H Unavailable Tavia Wyatt MD Unavailable [phone] Diana Desir [facility] Unavailable [phone] Rich Barrett MD Unavailable [phone] Neil Kent MD Unavailable Roney StoryM Unavailable [phone] Erica Farrell APRN BUSINESS OPERATIONS SPECIALIST Unavailable + Diana Desir [facility] Unavailable [phone] Jelena David OD Unavailable [phone] Galo Burrell MD Unavailable Unavailable Livan Sharif MD Unavailable + Livan Sharif MD Unavailable + Catherine Cm MD Unavailable + Valery Veronica PA-C Unavailable [phone] Catherine Cm MD Unavailable + Johnny Murillo MD Unavailable +1- Brea Quinn APRN BUSINESS OPERATIONS SPECIALIST Unavailable +[phone] Brea Quinn APRN BUSINESS OPERATIONS SPECIALIST Unavailable [phone] Jose Francisco Johnson MD Unavailable + Livan Sharif MD Unavailable + Catherine Cm MD Unavailable + Sydnie Martinez RN Unavailable Unavailable Alfonso Renteria MD Unavailable [phone] Esha Grimm PA-C Primary Care Provider Perez Chengjc Fish PA-C Unavailable LomeliRadha APRN BUSINESS OPERATIONS SPECIALIST Unavailable Jelena David OD Unavailable Pao Joseph RN Unavailable Unavailable Esha Grimm PA-C Unavailable [phone] Valery Veronica PA-C Unavailable Rey Tay MD Unavailable Rocky Zepeda DO Unavailable Philip Dumont MD Unavailable Meredith Carrera PA-C Unavailable [phone] Neil Kent MD Unavailable Juan Pablo Emmanuel MD Unavailable [phone] Audrey Waite PA-C Unavailable [phone] Valery Veronica PA-C Unavailable [phone] Herminia Hatch MD Unavailable Encounter Details Date Type Department Care Team (Late st Contact Info) Description 09/02/2020 MyC Medical Advice [facility] Care Coordination [facility] [address] [place] [address] Mary Mejia Social History Tobacco Use Types [...] do you attend chur or evangelical services? More than 4 times [...] Answer Date Recorded PHQ-2 Score 0 08/12/2020 [facility] [place] of Occupat ional Health - Occupational Stress [...] PM CDT Legal Sex Female 4:13 AM COPY AND PRINT ASSOCIATE Gender Identity Female 03/02/2021 5:45 PM CDT Sexual Orientation Straight 02/28/2020 12 :51 AM CDT COVID-19 Exposure Response Date Recorded In the last month, have you been in contact with someone who was confirmed or suspected to have Coronavirus / COVID-19? No / Unsure 09/05/2020 2:50 PM COPY AND PRINT ASSOCIATE documented as of this encounter Plan of Treatment Upcoming Encounters Date Type Department Care Team (Late st Contact Info) Description 10/23/2024 9:30 AM CDT Office Visit [facility] Neurology [facility] [address] [facility], [address] [place] [address] [place] [address] [place], [place] [address] Johnny Penn MD [address] [place] [id number] documented as of this encounter Visit Diagnoses Not on filedocumented in this encounter Additional Health Concerns Infection Onset Date Last Indicated Resolved Time Rule Out COVID-19 09/24/2020 09/24/2020 09/24/2020 9:24 AM CDT Rule Out COVID-19 11/05/2020 11/05/2020 11/06/2020 1:09 PM CDT Rule Out COVID-19 05/11/2021 05/11/2021 05/13/2021 10:18 AM CDT Rule Out COVID-19 07/13/2021 07/13/2021 07/14/2021 3:04 PM COPY AND PRINT ASSOCIATE Rule Out COVID-19 07/18/2021 07/18/2021 07/20/2021 1:56 PM COPY AND PRINT ASSOCIATE COVID-19 07/18/2021 07/18/2021 08/08/2021 11:3 9 PM COPY AND PRINT ASSOCIATE Rule Out COVID-19 12/18/2021 12/18/2021 12/19/2021 11:34 AM CDT Rule Out COVID-19 02/24/2022 02/24/2022 02/25/2022 1:08 PM CDT Rule Out COVID-19 04/26/2022 04/26/2022 04/26/2022 6:47 AM CDT Rule Out COVID-19 05/17/2022 05/17/2022 05/17/2022 10:20 PM COPY AND PRINT ASSOCIATE Rule Out COVID-19 06/09/2022 06/09/2022 06/09/2022 9:35 AM COPY AND PRINT ASSOCIATE COVID-19 06/09/2022 06/09/2022 06/30/2022 11:4 1 PM COPY AND PRINT ASSOCIATE Rule Out COVID-19 11/10/2022 11/10/2022 11/11/2022 12:17 PM CDT Rule Out COVID-19 03/07/2023 03/07/2023 03/07/2023 1:20 PM CDT Rule Out COVID-19 12/26/2023 12/26/2023 12/26/2023 9:50 AM CDT Rule Out COVID-19 04/09/2024 04/09/2024 04/10/2024 6:48 PM CDT Assessment Noted Time PHQ-9 Depression Total Score: 9 06/25/20 20 7:04 AM COPY AND PRINT ASSOCIATE documented as of this encounter Care Teams Geologic Technician Relationship Specialty Start Date End Date Marija Edgar APRN BUSINESS OPERATIONS SPECIALIST PCP - General Nurse Practitioner 04/30/20 04/14/23 Esha Grimm PA-C [address] [place] [phone] PCP - General Family Medicine 05/04/23 Lita Oseguera Personal Advocate & Liaison (PAL) 02/28/20 03/27/23 Chanelle Mccann APRN CNM [address] [address] Assigned OBGYN Provider 05/02/2005/09 Kyara De La Fuente, RN Specialty [employer] Neurology 06/04/20 03/05/21 Marija Edgar APRN BUSINESS OPERATIONS SPECIALIST Assigned PCP 06/08/20 04/29/23 Mynor Broussard MD 6363 [facility] [address] [place] [address] Assigned Surgical Provider 06/01/20 11/28/21 Keisha Dotson MD 909 [place] [address] Assigned Neuroscience Provider 06/04/20 04/01/23 Stacey Briones, [facility] Lead [employer] Primary Care - CC 08/11/2012/30 Lesley Guillermo, [facility] Community Health Worker 08/11/2010/01 Mary Mejia Financial Resource Worker 09/02/20 10/06/20 Lita Oseguera Personal Advocate & Liaison (PAL) Family Medicine 09/10/20 09/21/20 Galo Burrell MD Assigned Heart and Vascular Provider 10/05/20 04/02/22 Cristina Wood Financial Resource Worker 10/07/20 10/14/20 Lesley Guillermo, [facility] Community Health Worker 10/23/2012/30 Meredith Bedoya Financial Resource Worker 10/23/20 11/23/20 Cristina Wood Financial Resource Worker 02/09/21 02/09/21 Diana Desir, [facility] [address] [place] [address] Pharmacist Pharmacist 04/17/21 Rain Galaviz PA-C [address] [place] [address] [address] [place] [address] Physician Inductor Tester Dermatology 04/28/21 Summer Lara MD [address] [place], [place] 430[address] Assigned OBGYN Provider 05/10/2105/23 Summer Lara MD [address] [place], [place] 9733[address] Assigned OBGYN Provider 05/31/21 Summer Lara MD [address] [place], [place] 014824 Assigned OBGYN Provider 05/24/2105/30 Tavia Wyatt MD [address] [address] [place], [place] 98[address] Dermatology 07/14/21 Johnny Murillo MD [address] [facility] [address] [place], [place] [address] Assigned Musculoskeletal Provider 08/30/21 03/17/22 Erica Farrell APRN BUSINESS OPERATIONS SPECIALIST 6405 [facility] [address] [place] [id number] Nurse Practitioner Cardiovascular Disease 09/09/21 Teresita Bean [facility] [address] [place] [phone] Pharmacist Pharmacist 09/24/21 09/29/21 Tavia Wyatt MD [facility] [place], [place] [address]678[address] Assigned Surgical Provider 11/29/21 05/07/22 Diana Desir, [facility] [address] [place] [address] Assigned MTM Pharmacist 01/02/22 Rich Barrett MD [address] [address] Physician Ophthalmology 01/21/22 Neil Kent MD 500 [place], [place] [address] Dermatology 02/24/22 Roney Story DPM [address] [facility] [address] [place] [address] Assigned Musculoskeletal Provider 03/20/22 08/13/22 Erica Farrell APRN BUSINESS OPERATIONS SPECIALIST [address] [place] [address] Assigned Heart and Vascular Provider 04/03/22 04/16/22 Diana Desir, [facility] [address] [place] [address] Assigned MTM Pharmacist 04/07/22 Jelena David OD [address] [place] [address] Assigned Surgical Provider 05/08/22 10/08/22 Galo Burrell MD Assigned Heart and Vascular Provider 04/17/22 06/11/22 Livan Sharif MD [address], [facility] [address] [place] [address] Cardiovascular Disease 05/14/22 Livan Sharif MD [address], [address] [address] [address] Assigned Heart and Vascular Provider 06/12/22 07/23/22 Catherine Cm MD [address] [place] [address] Cardiovascular Disease 07/21/22 Valery Veronica, PA-C [address] [place] [address] Physician Inductor Tester Dermatology 07/21/22 Catherine Cm MD [address] [facility] [address] [place] [address] Assigned Heart and Vascular Provider 07/24/22 11/05/22 Johnny Murillo MD [address] [place] [address] 576624 Assigned Musculoskeletal Provider 08/14/22 10/08/22 rBea Quinn APRN BUSINESS OPERATIONS SPECIALIST [address] [place] [address] 865835 Nurse Practitioner Dermatology 09/21/22 Brea Quinn APRN BUSINESS OPERATIONS SPECIALIST [address] [place] [address] [place] 083142 Assigned Surgical Provider 10/09/22 05/01/24 [place] [address] [place] [address] Assigned Musculoskeletal Provider 10/09/22 05/01/24 Livan Sharif MD [address], [address] [place] [address] Assigned Heart and Vascular Provider 11/06/22 11/12/22 Catherine Cm MD [address] [place] [address] Assigned Heart and Vascular Provider 11/13/22 05/27/23 Sydnie Martinez RN Personal Advocate & Liaison (PAL) Family Medicine 03/28/23 07/31/23 Alfonso Renteria MD 5775 [facility] 200 [place] [address] Assigned Neuroscience Provider 04/02/23 Cheng Todd PA-C [address] [place] [address] [phone] Assigned PCP 04/30/23 07/15/23 Radha Lomeli, ARLENE BUSINESS OPERATIONS SPECIALIST [address] [place] [address] Assigned Heart and Vascular Provider 05/28/23 Jelena David OD [address] [place] [address] Ophthalmology 06/15/23 Pao Joseph RN Personal Advocate & Liaison (PAL) Nurse 08/01/23 11/07/23 Esha Grimm PA-C [address] [place] [address] Assigned PCP 07/16/23 Valery Veronica PA-C [address] [place] [address] 700895 Physician Inductor Tester Dermatology 09/19/23 Rey Tay MD [address] [place] [address] [id number] MD Gastroenterology 09/20/23 Rocky Zepeda DO [address] [place] [address] [phone] Physician Gastroenterology 09/20/23 Philip Dumont MD [address] [place] [address] 165255 Physician Ophthalmology 09/22/23 Meredith Carrera PA-C [address] [place] [address] Assigned Gastroenterology Provider 11/01/23 Neil Kent MD [address] [address] Dermatology 11/02/23 [place] [address] [place] [address] Neurological Surgery 12/26/23 Audrey Waite PA-C 500 [place] [address] Physician Inductor Tester Dermatology 02/28/24 Valery Veronica PA-C [address] [place] [address] Physician Inductor Tester Dermatology 04/10/24 Herminia Hatch MD [address] [place] [address] [id number] Assigned Rheumatology Provider 07/02/24 documented as of this encounter
--- OUTSIDE RECORDS SUMMARY | 2024-08-28 18:21 | XMS_ITS | Encounter Summary ---
Author Organization Kim Address [address] [place] [address] Care Team Providers Care Registered Nurse Obstetrics Name Role Phone Lita Oseguera Unavailable Unavailable Marija Edgar APRN CORRESPONDENCE SPECIALIST Primary Care Provider + Chanelle Mccann APRN CNM Unavailab le Kyara De La Fuente RN Unavailable [phone] Marija Edgar APRN CORRESPONDENCE SPECIALIST Unavailable Mynor Broussard MD Unavailable [phone] Keisha Dotson MD Unavailable Mary Mejia Unavailable Unavailable Stacey Briones CYTOLOGY TEACHER Unavailable [phone] Lesley Guillermo CHW Unavailable Mary Mejia Unavailable Unavailable Lita Oseguera Unavailable Unavailable Galo Burrell MD Unavailable Unavailable Cristina Wood Unavailable Lesley Guillermo CHW Unavailable Meredith Bedoya Unavailable Unavailable Cristina Wood Unavailable Diana Desir [facility] Unavailable [phone] Ruhland, Rain Lena PA-C Unavailable Summer Lara MD Unavailable [phone] Summer Lara MD Unavailable [phone] Summer Lara MD Unavailable [phone] Tavia Wyatt MD Unavailable [phone] Johnny Murillo MD Unavailable +1- Erica Farrell EVALUATION ASSISTANT CORRESPONDENCE SPECIALIST Unavailable VikasTeresita H Unavailable Tavia Wyatt MD Unavailable [phone] Diana Desir [facility] Unavailable [phone] Rich Barrett MD Unavailable Neil Kent MD Unavailable Roney Story [facility] Unavailable Erica Farrell APRN CORRESPONDENCE SPECIALIST Unavailable Diana Desir [facility] Unavailable [phone] Jelena David OD Unavailable Galo Burrell MD Unavailable Unavailable Livan Sharif MD Unavailable Livan Sharif MD Unavailable + Catherine Cm MD Unavailable + Valery Veronica PA-C Unavailable [phone] Catherine Cm MD Unavailable + Johnny Murillo MD Unavailable +1- Brea Quinn EVALUATION ASSISTANT CORRESPONDENCE SPECIALIST Unavailable [phone] Brea Quinn EVALUATION ASSISTANT CORRESPONDENCE SPECIALIST Unavailable [phone] Jose Francisco Johnson MD Unavailable Livan Sharif MD Unavailable Catherine Cm MD Unavailable + Sydnie Martinez RN Unavailable Unavailable Alfonso Renteria MD Unavailable [phone] Esha Grimm PA-C Primary Care Provider [phone] Cheng Todd PA-C Unavailable [phone] ArmaniRadha APRN CORRESPONDENCE SPECIALIST Unavailable Jelena David OD Unavailable [phone] Pao Joseph RN Unavailable Unavailable Esha Grimm PA-C Unavailable [phone] Valery Veronica PA-C Unavailable Rey Tay MD Unavailable Rocky Zepeda DO Unavailable Philip Dumont MD Unavailable Meredith Carrera PA-C Unavailable Neil Kent MD Unavailable Juan Pablo Emmanuel MD Unavailable Audrey Waite PA-C Unavailable [phone] JeremíasValery damon PA-C Unavailable Herminia Hatch MD Unavailable Encounter Details Date Type Department Care Team (Late st Contact Info) Description 08/07/2020 MyC Medical Advice [facility] Care Coordination [facility] [address] [place] [address] Lesley Guillermo, [facility] Social History Tobacco Use Types [...] week 08/07/2020 [facility] often [facility]? More than 4 times [...] Answer Date Recorded PHQ-2 Score 3 06/24/2020 [facility] [place] of Occupat ional Health - Occupational Stress [...] CDT Legal Sex Female 4:13 AM BUSINESS UNIT DIRECTOR Gender Identity Female 03/02/2021 5:45 PM CDT Sexual Orientation Straight 02/28/2020 12 :51 AM CDT COVID-19 Exposure Response Date Recorded In the last month, have you been in contact with someone who was confirmed or suspected to have Coronavirus / COVID-19? No / Unsure 08/06/2020 2:03 PM BUSINESS UNIT DIRECTOR documented as of this encounter Plan of Treatment Upcoming Encounters Date Type Department Care Team (Late st Contact Info) Description 10/23/2024 9:30 AM CDT Office Visit [facility] Neurology [facility] [address] [facility], [address] [place] [address] [place] [address] [place], [place] [phone] Johnny Penn MD [address] [place], [place] 14[address] documented as of this encounter Visit Diagnoses Not on filedocumented in this encounter Additional Health Concerns Infection Onset Date Last Indicated Resolved Time Rule Out COVID-19 08/30/2020 08/30/2020 08/30/2020 5:05 PM BUSINESS UNIT DIRECTOR Rule Out COVID-19 09/24/2020 09/24/2020 09/24/2020 9:24 AM CDT Rule Out COVID-19 11/05/2020 11/05/2020 11/06/2020 1:09 PM CDT Rule Out COVID-19 05/11/2021 05/11/2021 05/13/2021 10:18 AM CDT Rule Out COVID-19 07/13/2021 07/13/2021 07/14/2021 3:04 PM BUSINESS UNIT DIRECTOR Rule Out COVID-19 07/18/2021 07/18/2021 07/20/2021 1:56 PM BUSINESS UNIT DIRECTOR COVID-19 07/18/2021 07/18/2021 08/08/2021 11:3 9 PM BUSINESS UNIT DIRECTOR Rule Out COVID-19 12/18/2021 12/18/2021 12/19/2021 11:34 AM CDT Rule Out COVID-19 02/24/2022 02/24/2022 02/25/2022 1:08 PM CDT Rule Out COVID-19 04/26/2022 04/26/2022 04/26/2022 6:47 AM CDT Rule Out COVID-19 05/17/2022 05/17/2022 05/17/2022 10:20 PM BUSINESS UNIT DIRECTOR Rule Out COVID-19 06/09/2022 06/09/2022 06/09/2022 9:35 AM BUSINESS UNIT DIRECTOR COVID-19 06/09/2022 06/09/2022 06/30/2022 11:4 1 PM BUSINESS UNIT DIRECTOR Rule Out COVID-19 11/10/2022 11/10/2022 11/11/2022 12:17 PM CDT Rule Out COVID-19 03/07/2023 03/07/2023 03/07/2023 1:20 PM CDT Rule Out COVID-19 12/26/2023 12/26/2023 12/26/2023 9:50 AM CDT Rule Out COVID-19 04/09/2024 04/09/2024 04/10/2024 6:48 PM CDT Assessment Noted Time PHQ-9 Depression Total Score: 9 06/25/20 20 7:04 AM BUSINESS UNIT DIRECTOR documented as of this encounter Care Teams Registered Nurse Obstetrics Relationship Specialty Start Date End Date Marija Edgar APRN CORRESPONDENCE SPECIALIST PCP - General Nurse Practitioner 04/30/20 04/14/23 Esha Grimm PA-C [address] [place] [phone] PCP - General Family Medicine 05/04/23 Lita Oseguera Personal Advocate & Liaison (PAL) 02/28/20 03/27/23 Chanelle Mccann APRN CNM [address] [phone] Assigned OBGYN Provider 05/02/2005/09 Kyara De La Fuente, RN Specialty Six Horse Hitch Driver Neurology 06/04/20 03/05/21 Marija Edgar APRN CORRESPONDENCE SPECIALIST Assigned PCP 06/08/20 04/29/23 Mynor Broussard MD [address] [address] Assigned Surgical Provider 06/01/20 11/28/21 Keisha Dotson MD [address] [place], [place] 907095 Assigned Neuroscience Provider 06/04/20 04/01/23 Mary Mejia Financial Resource Worker 08/07/20 08/21/20 Stacey Briones, [facility] Lead Six Horse Hitch Driver Primary Care - CC 08/11/2012/30 Lesley Guillermo, [facility] Community Health Worker 08/11/2010/01 Mary Mejia Financial Resource Worker 09/02/20 10/06/20 Lita Oseguera Personal Advocate & Liaison (PAL) Family Medicine 09/10/20 09/21/20 Galo Burrell MD Assigned Heart and Vascular Provider 10/05/20 04/02/22 Cristina Wood Financial Resource Worker 10/07/20 10/14/20 Lesley Guillermo, [facility] Community Health Worker 10/23/2012/30 Meredith Bedoya Financial Resource Worker 10/23/20 11/23/20 Cristina Wood Financial Resource Worker 02/09/21 02/09/21 Diana Desir, [facility] [address] [place] [address] Pharmacist Pharmacist 04/17/21 Rain Galaviz PA-C [address] [place] [address] [place] [address] Physician Dry Cleaner Dermatology 04/28/21 Summer Lara MD [address] [place] [address] 069264 Assigned OBGYN Provider 05/10/2105/23 Summer Lara MD [address] [place] [address] 830214 Assigned OBGYN Provider 05/31/21 Summer Lara MD [address] [place] [address] 250974 Assigned OBGYN Provider 05/24/2105/30 Tavia Wyatt MD [address] [place] [address] [phone] Dermatology 07/14/21 Johnny Murillo MD [address] [place], [place] 210974 Assigned Musculoskeletal Provider 08/30/21 03/17/22 Erica Farrell APRN CORRESPONDENCE SPECIALIST [address] [facility] [address] [place] [phone] Nurse Practitioner Cardiovascular Disease 09/09/21 Teresita Bean, [facility] [address] [place] [address] [phone] Pharmacist Pharmacist 09/24/21 09/29/21 Tavia Wyatt MD [address] [place] [address] Assigned Surgical Provider 11/29/21 05/07/22 Diana Desir, [facility] [address] [place] [address] Assigned MTM Pharmacist 01/02/22 Rich Barrett MD [address] [phone] Physician Ophthalmology 01/21/22 Neil Kent MD [address] [place], [place] 214865 Dermatology 02/24/22 Roney Story DPM [address] [facility] [address] [place], [place] 449147 Assigned Musculoskeletal Provider 03/20/22 08/13/22 Erica Farrell APRN CORRESPONDENCE SPECIALIST [address] [place] [address] Assigned Heart and Vascular Provider 04/03/22 04/16/22 Diana Desir, [facility] [address] [place] [address] Assigned MTM Pharmacist 04/07/22 Jelena David OD [address] [place] [address] Assigned Surgical Provider 05/08/22 10/08/22 Galo Burrell MD Assigned Heart and Vascular Provider 04/17/22 06/11/22 Livan Sharif MD [address] [place] [address] Cardiovascular Disease 05/14/22 Livan Sharif MD [address] [place], [place] [address] Assigned Heart and Vascular Provider 06/12/22 07/23/22 Catherine Cm MD [address] [place] [address] Cardiovascular Disease 07/21/22 Valery Veronica, [facility] [address] [place] [address] 839685 Physician Dry Cleaner Dermatology 07/21/22 Catherine Cm MD [address] [place] [address] Assigned Heart and Vascular Provider 07/24/22 11/05/22 Johnny Murillo MD [facility] 446894 Assigned Musculoskeletal Provider 08/14/22 10/08/22 Brae Quinn APRN CORRESPONDENCE SPECIALIST [address] [place] [address] [phone] Nurse Practitioner Dermatology 09/21/22 Brea Quinn APRN CORRESPONDENCE SPECIALIST [address] [place] [address] Assigned Surgical Provider 10/09/22 05/01/24 [place] [address] [place] [address] Assigned Musculoskeletal Provider 10/09/22 05/01/24 Livan Sharif MD [address] [facility] [address] [place] [address] Assigned Heart and Vascular Provider 11/06/22 11/12/22 Catherine Cm MD [address] [place] [address] Assigned Heart and Vascular Provider 11/13/22 05/27/23 JuanSydnie malik, RN Personal Advocate & Liaison (PAL) Family Medicine 03/28/23 07/31/23 Alfonso Renteria MD [address] [facility] [address] [place] [address] Assigned Neuroscience Provider 04/02/23 Cheng Todd PA-C [address] [place] [address] Assigned PCP 04/30/23 07/15/23 Radha Lomeli APRN CORRESPONDENCE SPECIALIST [address] [place] [address] Assigned Heart and Vascular Provider 05/28/23 Jelena David OD [address] [place] [address] Ophthalmology 06/15/23 Pao Joseph, RN Personal Advocate & Liaison (PAL) Nurse 08/01/23 11/07/23 Esha Grimm PA-C [address] [place] [phone] Assigned PCP 07/16/23 Valery Veronica PA-C [address] [place] [address] 617005 Physician Dry Cleaner Dermatology 09/19/23 Rey Tay MD [address] [place] [address] 796315 MD Gastroenterology 09/20/23 Rocky Zepeda DO [address] [place] [address] 899935 Physician Gastroenterology 09/20/23 Philip Dumont MD [address] [place] [address] 939525 Physician Ophthalmology 09/22/23 Meredith Carrera PA-C [address] [place] [address] 012425 Assigned Gastroenterology Provider 11/01/23 Neil Kent MD [address] [address] Dermatology 11/02/23 [place] [address] [place] [address] Neurological Surgery 12/26/23 Audrey Waite PA-C [address] [place] [address] Physician Dry Cleaner Dermatology 02/28/24 Valery Veronica PA-C [address] [place] [address] Physician Dry Cleaner Dermatology 04/10/24 Herminia Hatch MD [address] [place] [address] [phone] Assigned Rheumatology Provider 07/02/24 documented as of this encounter
--- OUTSIDE RECORDS SUMMARY | 2024-08-28 18:21 | XMS_ITS | Encounter Summary ---
Author Organization [facility] Address [address] [place] [address] Care Team Providers Care Food Specialist Name Role Phone Lita Oseguera Unavailable Unavailable Marija Edgar APRN RESOURCE RECOVERY ENGINEER Primary Care Provider + Marija Edgar APRN RESOURCE RECOVERY ENGINEER Unavailable [phone] Keisha Dotson MD Unavailable Galo Burrell MD Unavailable Unavailable Diana Desir [facility] Unavailable Rain Galaviz PA-C Unavailable Summer Lara MD Unavailable [phone] Tavia Wyatt MD Unavailable Johnny Murillo MD Unavailable Erica Farrell APRN RESOURCE RECOVERY ENGINEER Unavailable Tavia Wyatt MD Unavailable Diana Desir [facility] Unavailable Rich Barrett MD Unavailable Neil Kent MD Unavailable Roney Story DPM Unavailable [phone] Erica Farrell APRN RESOURCE RECOVERY ENGINEER Unavailable + Diana Desir [facility] Unavailable Jelena David OD Unavailable Galo Burrell MD Unavailable Unavailable HoLivan MD Unavailable Livan Sharif MD Unavailable IskoCatherine boothe MD Unavailable + Valery Veronica PA-C Unavailable [phone] Catherine Cm MD Unavailable + Johnny Murillo MD Unavailable [phone] Brea Quinn ART DISPLAY MAKER RESOURCE RECOVERY ENGINEER Unavailable [phone] Brea Quinn ART DISPLAY MAKER RESOURCE RECOVERY ENGINEER Unavailable [phone] Jose Francisco Johnson MD Unavailable Livan Sharif MD Unavailable + IsCatherine boothe MD Unavailable + Sydnie Martinez RN Unavailable Unavailable Alfonso Renteria MD Unavailable Esha Grimm PA-C Primary Care Provider Cheng Todd PA-C Unavailable Radha Lomeli ART DISPLAY MAKER RESOURCE RECOVERY ENGINEER Unavailable [phone] Jelena David OD Unavailable Pao Joseph RN Unavailable Unavailable Esha Grimm PA-C Unavailable [phone] Valery Veronica PA-C Unavailable [phone] Rey Tay MD Unavailable Rocky Zepeda DO Unavailable Philip Dumont MD Unavailable [phone] Meredith Carrera PA-C Unavailable Neil Kent MD Unavailable Juan Pablo Emmanuel MD Unavailable [phone] Audrey Waite PA-C Unavailable [phone] Valery Veronica PA-C Unavailable [phone] Herminia Hatch MD Unavailable Encounter Details Date Type Department Care Team (Late st Contact Info) Description 01/22/2022 MyC Medical Advice [address] [address] Diana Desir, [facility] [address] [place] [address] Social History Tobacco Use Types Packs/Day Years [...] How often do you attend orthodox or religion serv ices? Never 09/22/2021 Do [...] Answer Date Recorded PHQ-2 Score 2 12/18/2021 [facility] of Occupat ional [...] in a penitentiary (including now)? No 09/22/2021 Chappells Depression Scale Answer Date Recorded Chappells Depression Score 5 01/14/2021 Last EPDS Self Harm Result Not on file 01/14 Education Answer Date Recorded What is the highest level of school you have completed or the highest degree you have received? 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 INCLUSION INTERNSHIP Gender Identity Female 03/02/2021 5:45 PM CDT [...] Description 10/23/2024 9:30 AM CDT Office Visit [facility] Neurology [address], [address] [place] [address] [place] [address] [place] [phone] Johnny Penn MD [address] [place] [phone] documented as of this encounter Visit Diagnoses Not on filedocumented in this encounter Additional Health Concerns Infection Onset Date Last Indicated Resolved Time Rule Out COVID-19 02/24/2022 02/24/2022 02/25/2022 1:08 PM CDT Rule Out COVID-19 04/26/2022 04/26/2022 04/26/2022 6:47 AM CDT Rule Out COVID-19 05/17/2022 05/17/2022 05/17/2022 10:20 PM INCLUSION INTERNSHIP Rule Out COVID-19 06/09/2022 06/09/2022 06/09/2022 9:35 AM INCLUSION INTERNSHIP COVID-19 06/09/2022 06/09/2022 06/30/2022 11:4 1 PM INCLUSION INTERNSHIP Rule Out COVID-19 11/10/2022 11/10/2022 11/11/2022 12:17 PM CDT Rule Out COVID-19 03/07/2023 03/07/2023 03/07/2023 1:20 PM CDT Rule Out COVID-19 12/26/2023 12/26/2023 12/26/2023 9:50 AM CDT Rule Out COVID-19 04/09/2024 04/09/2024 04/10/2024 6:48 PM CDT Assessment Noted Time PHQ-9 Depression Total Score: 2 12/19/19 2:50 PM CDT documented as of this encounter Care Teams Food Specialist Relationship Specialty Start Date End Date Marija Edgar APRN RESOURCE RECOVERY ENGINEER PCP - General Nurse Practitioner 04/30/20 04/14/23 Esha Grimm PA-C [address] [place] [phone] PCP - General Family Medicine 05/04/23 Lita Oseguera Personal Advocate & Liaison (PAL) 02/28/20 03/27/23 Marija Edgar APRN RESOURCE RECOVERY ENGINEER Assigned PCP 06/08/20 04/29/23 Keisha Dotson MD [address] [place] [address] Assigned Neuroscience Provider 06/04/20 04/01/23 Galo Burrell MD Assigned Heart and Vascular Provider 10/05/20 04/02/22 Diana Desir, [facility] [address] [place] [address] Pharmacist Pharmacist 04/17/21 Rain Galaviz PA-C [address] [place] [address] [place] [address] Physician Assistant Cook Dermatology 04/28/21 Summer Lara MD [address] [place] [address] 397034 Assigned OBGYN Provider 05/31/21 2 Tavia Wyatt MD [address] [place] [address] 153884 Dermatology 07/14/21 Johnny Murillo MD [address] [place] [address] Assigned Musculoskeletal Provider 08/30/21 03/17/22 Erica Farrell APRN RESOURCE RECOVERY ENGINEER [address] [facility] [address] [place], [place] 292805 Nurse Practitioner Cardiovascular Disease 09/09/21 Tavia Wyatt MD [address] [place], [place] [phone] Assigned Surgical Provider 11/29/21 05/07/22 Diana Desir, [facility] [address] [place] [address] Assigned MTM Pharmacist 01/02/22 Rich Barrett MD [address] [address] Physician Ophthalmology 01/21/22 Neil Kent MD [address] [place] [address] Dermatology 02/24/22 Roney Story DPM [address] [facility] [address] [place] [address] Assigned Musculoskeletal Provider 03/20/22 08/13/22 Erica Farrell APRN RESOURCE RECOVERY ENGINEER [address] [place] [address] Assigned Heart and Vascular Provider 04/03/22 04/16/22 Diana Desir [facility] [address] [place] [address] Assigned MTM Pharmacist 04/07/22 Jelena David OD [facility] [facility] [place] [address] Assigned Surgical Provider 05/08/22 10/08/22 Galo Burrell MD Assigned Heart and Vascular Provider 04/17/22 06/11/22 Livan Sharif MD [address] [place] [address] Cardiovascular Disease 05/14/22 Livan Sharif MD [address] [place] [address] Assigned Heart and Vascular Provider 06/12/22 07/23/22 Catherine Cm MD [address] [place] [address] Cardiovascular Disease 07/21/22 Valery Veronica, PAUcheC [address] [place] [address] 069185 Physician Assistant Cook Dermatology 07/21/22 Catherine Cm MD [address] [place] 700135 Assigned Heart and Vascular Provider 07/24/22 11/05/22 Johnny Murillo MD [address] 093094 Assigned Musculoskeletal Provider 08/14/22 10/08/22 Brea Quinn APRN RESOURCE RECOVERY ENGINEER [address] [place] [address] [phone] Nurse Practitioner Dermatology 09/21/22 Brea Quinn APRN RESOURCE RECOVERY ENGINEER [address] [place] [address] [place] [phone] Assigned Surgical Provider 10/09/22 05/01/24 [place] [address] [place] [address] Assigned Musculoskeletal Provider 10/09/22 05/01/24 Livan Sharif MD [address] [facility] [address] [place] [address] Assigned Heart and Vascular Provider 11/06/22 11/12/22 Catherine Cm MD [address] [place] [address] Assigned Heart and Vascular Provider 11/13/22 05/27/23 Sydnie Martinez RN Personal Advocate & Liaison (PAL) Family Medicine 03/28/23 07/31/23 Alfonso Renteria MD [address] [facility] 200 [place], [place] 040336 Assigned Neuroscience Provider 04/02/23 Cheng Todd PA-C [address] [place] [address] [phone] Assigned PCP 04/30/23 07/15/23 Radha Lomeli, ART DISPLAY MAKER RESOURCE RECOVERY ENGINEER [address] [place] 448265 Assigned Heart and Vascular Provider 05/28/23 Jelena David OD [address] [facility] [place] [address] Ophthalmology 06/15/23 Pao Joseph VJ Personal Advocate & Liaison (PAL) Nurse 08/01/23 11/07/23 Esha Grimm PA-C [address] [place] [address]-917083 Assigned PCP 07/16/23 Valery Veronica PA-C [address] [place] [address] 919865 Physician Assistant Cook Dermatology 09/19/23 Rey Tay MD [address] [place] [address] [phone] Gastroenterology 09/20/23 Rocky Zepeda DO [address] [place] [address] 486265 Physician Gastroenterology 09/20/23 Philip Dumont MD [address] [place] [address] 019765 Physician Ophthalmology 09/22/23 Meredith Carrera PA-C [address] [place] [address] Assigned Gastroenterology Provider 11/01/23 Neil Kent MD [address] [place] [address] Dermatology 11/02/23 [place] [address] [place] [address] Neurological Surgery 12/26/23 Audrey Waite PA-C 500 [place] [address] Physician Assistant Cook Dermatology 02/28/24 Valery Veronica PA-C [address] [place] [address] Physician Assistant Cook Dermatology 04/10/24 Herminia Hatch MD [address] [place] [address] Assigned Rheumatology Provider 07/02/24 documented as of this encounter
--- OUTSIDE RECORDS SUMMARY | 2024-08-28 18:22 | XMS_ITS | Encounter Summary ---
Author Organization [facility] Address [address] [place] [address] Care Team Providers Care Outside Event Sales Specialist Name Role Phone Lita Oseguera Unavailable Unavailable Marija Edgar APRN BUSINESS OWNER/ENGINEER Primary Care Provider + Marija Edgar APRN BUSINESS OWNER/ENGINEER Unavailable [phone] Mynor Broussard MD Unavailable [phone] Keisha Dotson MD Unavailable Galo Burrell MD Unavailable Unavailable Diana Desir [facility] Unavailable Rain Galaviz PA-C Unavailable Summer Lara MD Unavailable [phone] Tavia Wyatt MD Unavailable Johnny Murillo MD Unavailable Erica Farrell APRN BUSINESS OWNER/ENGINEER Unavailable Tavia Wyatt MD Unavailable Diana Desir [facility] Unavailable Rich Barrett MD Unavailable [phone] Neil Kent MD Unavailable Roney Story DPM Unavailable Erica Farrell FEDERAL JUDGE BUSINESS OWNER/ENGINEER Unavailable Diana Desir [facility] Unavailable Jelena David OD Unavailable [phone] Galo Burrell MD Unavailable Unavailable Livan Sharif MD Unavailable Livan Sharif MD Unavailable Catherine Cm MD Unavailable + Valery Veronica PA-C Unavailable [phone] Catherine Cm MD Unavailable + Johnny Murillo MD Unavailable [phone] Brea Quinn FEDERAL JUDGE BUSINESS OWNER/ENGINEER Unavailable [phone] Brea Quinn FEDERAL JUDGE BUSINESS OWNER/ENGINEER Unavailable [phone] Jose Francisco Johnson MD Unavailable Livan Sharif MD Unavailable + IsCatherine hobbs MD Unavailable + Sydnie Martinez RN Unavailable Unavailable Alfonso Renteria MD Unavailable Esha Grimm PA-C Primary Care Provider Cheng Todd PA-C Unavailable Radha Lomeli FEDERAL JUDGE BUSINESS OWNER/ENGINEER Unavailable [phone] Jelena David OD Unavailable Pao Joseph RN Unavailable Unavailable Esha Grimm PA-C Unavailable [phone] Valery Veronica PA-C Unavailable [phone] Rey Tay MD Unavailable Rocky Zepeda DO Unavailable Philip Dumont MD Unavailable Meredith Carrera PA-C Unavailable [phone] Neil Kent MD Unavailable Juan Pablo Emmanuel MD Unavailable [phone] Audrey Waite PA-C Unavailable [phone] Valery Veronica PA-C Unavailable [phone] Herminia Hatch MD Unavailable Encounter Details Date Type Department Care Team (Late st Contact Info) Description 11/16/2021 [facility] [place] Medical Advice [address] [address] [facility] [address] [place] [address] Social History Tobacco Use Types Packs/Day Years [...] How often do you attend mosque or lutheran serv ices? Never 09/22/2021 Do [...] in a residential (including now)? No 09/22/2021 Mackay Depression Scale Answer Date Recorded Mackay Depression Score 5 01/14/2021 Last EPDS Self Harm Result Not on file 01/14 Education Answer Date Recorded What is the highest level of school you have completed or the highest degree you have received? 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 FITNESS STUDIES TEACHER Gender Identity Female 03/02/2021 5:45 PM [...] Office Visit [facility] [address], [address] [place] [address] [place] [address] [address] [place] [address] Johnny Penn MD [address] [place] [address] documented as of this encounter Visit Diagnoses Not on filedocumented in this encounter Additional Health Concerns Infection Onset Date Last Indicated Resolved Time Rule Out COVID-19 12/18/2021 12/18/2021 12/19/2021 11:34 AM CDT Rule Out COVID-19 02/24/2022 02/24/2022 02/25/2022 1:08 PM CDT Rule Out COVID-19 04/26/2022 04/26/2022 04/26/2022 6:47 AM CDT Rule Out COVID-19 05/17/2022 05/17/2022 05/17/2022 10:20 PM FITNESS STUDIES TEACHER Rule Out COVID-19 06/09/2022 06/09/2022 06/09/2022 9:35 AM FITNESS STUDIES TEACHER COVID-19 06/09/2022 06/09/2022 06/30/2022 11:4 1 PM FITNESS STUDIES TEACHER Rule Out COVID-19 11/10/2022 11/10/2022 11/11/2022 12:17 PM CDT Rule Out COVID-19 03/07/2023 03/07/2023 03/07/2023 1:20 PM CDT Rule Out COVID-19 12/26/2023 12/26/2023 12/26/2023 9:50 AM CDT Rule Out COVID-19 04/09/2024 04/09/2024 04/10/2024 6:48 PM CDT Assessment Noted Time PHQ-9 Depression Total Score: 2 04/02/20 10:19 AM CDT documented as of this encounter Care Teams Outside Event Sales Specialist Relationship Specialty Start Date End Date Marija Edgar APRN BUSINESS OWNER/ENGINEER PCP - General Nurse Practitioner 04/30/20 04/14/23 Esha Grimm PA-C [address] [place] [phone] PCP - General Family Medicine 05/04/23 Lita Oseguera Personal Advocate & Liaison (PAL) 02/28/20 03/27/23 Marija Edgar APRN BUSINESS OWNER/ENGINEER Assigned PCP 06/08/20 04/29/23 Mynor Broussard MD [address] [address] Assigned Surgical Provider 06/01/20 11/28/21 Keisha Dotson MD 9 [place] [address] Assigned Neuroscience Provider 06/04/20 04/01/23 Galo Burrell MD Assigned Heart and Vascular Provider 10/05/20 04/02/22 Diana Desir, [facility] [address] [place] [address] Pharmacist Pharmacist 04/17/21 Rain Galaviz PA-C [address] [place] [address] [address] [place] [address] Physician Rn Invasive Dermatology 04/28/21 Summer Lara MD [address] [place] [address] [phone] Assigned OBGYN Provider 05/31/21 9 2 Tavia Wyatt MD [address] [place] [address] [id number] Dermatology 07/14/21 Johnny Murillo MD [facility] [address] [place], [place] [address] Assigned Musculoskeletal Provider 08/30/21 03/17/22 Erica Farrell APRN BUSINESS OWNER/ENGINEER [address] [facility] [address] [place] [address] Nurse Practitioner Cardiovascular Disease 09/09/21 Tavia Wyatt MD [address] [place], [place] [address] Assigned Surgical Provider 11/29/21 05/07/22 Diana Desir, [facility] [address] [place], [place] 542696 Assigned MTM Pharmacist 01/02/22 Rich Barrett MD [address] [address] Physician Ophthalmology 01/21/22 Neil Kent MD 500 [place], [place] 0[address]85 Dermatology 02/24/22 Roney Story DPM [address] [facility] [address] [place], [place] 072457 Assigned Musculoskeletal Provider 03/20/22 08/13/22 Erica Farrell APRN BUSINESS OWNER/ENGINEER 1700 [place] [address] Assigned Heart and Vascular Provider 04/03/22 04/16/22 Diana Desir [facility] [address] [place] [address] Assigned MTM Pharmacist 04/07/22 Jelena David OD [address] [facility] [place] [address] Assigned Surgical Provider 05/08/22 10/08/22 Galo Burrell MD Assigned Heart and Vascular Provider 04/17/22 06/11/22 Livan Sharif MD [address] [place] [address] Cardiovascular Disease 05/14/22 Livan Sharif MD [address] [place] [address] Assigned Heart and Vascular Provider 06/12/22 07/23/22 Catherine Cm MD [address] [place], [place] 6737[address] Cardiovascular Disease 07/21/22 Valery Veronica, PAUcheC [address]09 [place], [place] [address] Physician Rn Invasive Dermatology 07/21/22 Catherine Cm MD [address] [place] [address] Assigned Heart and Vascular Provider 07/24/22 11/05/22 Johnny Murillo MD [address] [place] [address] Assigned Musculoskeletal Provider 08/14/22 10/08/22 Brea Quinn APRN BUSINESS OWNER/ENGINEER 500 [place] [address] Nurse Practitioner Dermatology 09/21/22 Brea Quinn APRN BUSINESS OWNER/ENGINEER 6401 [facility] [place] [address] Assigned Surgical Provider 10/09/22 05/01/24 [place] [address] [address] [facility] [address] [place] [address] Assigned Musculoskeletal Provider 10/09/22 05/01/24 Livan Sharif MD [address] [facility] [address] [place] [address] Assigned Heart and Vascular Provider 11/06/22 11/12/22 Catherine Cm MD [address] [facility]00 [place] [address] Assigned Heart and Vascular Provider 11/13/22 05/27/23 Sydnie Martinez RN Personal Advocate & Liaison (PAL) Family Medicine 03/28/23 07/31/23 Alfonso Renteria MD 5775 [facility] 200 [place], [place] [address] Assigned Neuroscience Provider 04/02/23 Cheng Todd PA-C [address] [place] [address] Assigned PCP 04/30/23 07/15/23 Radha Lomeli APRN BUSINESS OWNER/ENGINEER [address] [place], [place] 276[address] Assigned Heart and Vascular Provider 05/28/23 Jelena David OD [address] [facility] [place] [address] MD Ophthalmology 06/15/23 Pao Joseph, VJ Personal Advocate & Liaison (PAL) Nurse 08/01/23 11/07/23 Esha Grimm PA-C [address] [place] [address] Assigned PCP 07/16/23 Valery Veronica PA-C [address] [place] [address] 696605 Physician Rn Invasive Dermatology 09/19/23 Rey Tay MD [address] [place] [address] [id number] Gastroenterology 09/20/23 Rocky Zepeda DO [address] [place] [address] 548125 Physician Gastroenterology 09/20/23 Philip Dumont MD [address] [place] [address] 845825 Physician Ophthalmology 09/22/23 Meredith Carrera PA-C [address] [place] [address] Assigned Gastroenterology Provider 11/01/23 Neil Kent MD [address] [address] Dermatology 11/02/23 [place] [address] [place] [address] Neurological Surgery 12/26/23 Audrey Waite PA-C 500 [place] [address] Physician Rn Invasive Dermatology 02/28/24 Valery Veronica PA-C 631289 [address], [place] [address] Physician Rn Invasive Dermatology 04/10/24 Herminia Hatch MD [facility]5 [place] [address] Assigned Rheumatology Provider 07/02/24 documented as of this encounter
--- OUTSIDE RECORDS SUMMARY | 2024-08-28 18:22 | XMS_ITS | Encounter Summary ---
Author Organization [facility] Address [address] [place] [address] Care Team Providers Care Evaluator Transfer Students Name Role Phone Lita Oseguera Unavailable Unavailable Mariaj Edgar APRN TECHNICAL RESEARCH SCIENTIST Primary Care Provider + Marija Edgar APRN TECHNICAL RESEARCH SCIENTIST Unavailable [phone] Mynor Broussard MD Unavailable [phone] Keisha Dotson MD Unavailable Galo Burrell MD Unavailable Unavailable Diana Desir [facility] Unavailable Rain Galaviz PA-C Unavailable Summer Lara MD Unavailable [phone] Tavia Wyatt MD Unavailable Johnny Murillo MD Unavailable Erica Farrell APRN TECHNICAL RESEARCH SCIENTIST Unavailable Tavia Wyatt MD Unavailable Diana Desir [facility] Unavailable Rich Barrett MD Unavailable [phone] Neil Kent MD Unavailable Roney Story DPM Unavailable Erica Farrell PROCESSOR GRAIN TECHNICAL RESEARCH SCIENTIST Unavailable Diana Desir [facility] Unavailable Jelena David OD Unavailable [phone] Galo Burrell MD Unavailable Unavailable Livan Sharif MD Unavailable Livan Sharif MD Unavailable Catherine Cm MD Unavailable + Valery Veronica PA-C Unavailable [phone] Catherine Cm MD Unavailable + Johnny Murillo MD Unavailable [phone] Brea Quinn PROCESSOR GRAIN TECHNICAL RESEARCH SCIENTIST Unavailable [phone] Brea Quinn PROCESSOR GRAIN TECHNICAL RESEARCH SCIENTIST Unavailable [phone] Jose Francisco Johnson MD Unavailable Livan Sharif MD Unavailable + IsCatherine hobbs MD Unavailable + Sydnie Martinez RN Unavailable Unavailable Alfonso Renteria MD Unavailable Esha Grimm PA-C Primary Care Provider Cheng Todd PA-C Unavailable Radha Lomeli PROCESSOR GRAIN TECHNICAL RESEARCH SCIENTIST Unavailable [phone] Jelena David OD Unavailable Pao Joseph RN Unavailable Unavailable Esha Grimm PA-C Unavailable [phone] Valery Veronica PA-C Unavailable [phone] Rey Tay MD Unavailable Rocky Zepeda DO Unavailable Philip Dumont MD Unavailable Byron Carreranahed DOWC Unavailable [phone] Neil Kent MD Unavailable Juan Pablo Emmanuel MD Unavailable [phone] Audrey Waite PA-C Unavailable [phone] Valery Veronica PA-C Unavailable [phone] Herminia Hatch MD Unavailable Encounter Details Date Type Department Care Team (Late st Contact Info) Description 10/28/2021 [facility] Medical Advice [facility] Heart [address] [place] [address] Erica Farrell APRN [facility] 17[address] [place], [place] [id number] Social History Tobacco Use Types Packs/Day Years [...] How often do you attend evangelical or oriental orthodox serv ices? Never 09/22/2021 [...] in a detention (including now)? No 09/22/2021 Eden Depression Scale Answer Date Recorded Eden Depression Score 5 01/14/2021 Last EPDS Self Harm Result Not on file 01/14 Education Answer Date Recorded What is the highest level of school you have completed or the highest degree you have received? 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 Gender Identity Female 03/02/2021 5:45 PM [...] CDT Office Visit [facility] Neurology Clinics [address], [address] [place] [address] [place] [address] [place] [address] Johnny Penn MD [address] [place] [address] documented as of this encounter Visit Diagnoses Not on filedocumented in this encounter Additional Health Concerns Infection Onset Date Last Indicated Resolved Time Rule Out COVID-19 12/18/2021 12/18/2021 12/19/2021 11:34 AM CDT Rule Out COVID-19 02/24/2022 02/24/2022 02/25/2022 1:08 PM CDT Rule Out COVID-19 04/26/2022 04/26/2022 04/26/2022 6:47 AM CDT Rule Out COVID-19 05/17/2022 05/17/2022 05/17/2022 10:20 PM EQUIPMENT ANALYST Rule Out COVID-19 06/09/2022 06/09/2022 06/09/2022 9:35 AM EQUIPMENT ANALYST COVID-19 06/09/2022 06/09/2022 06/30/2022 11:4 1 PM EQUIPMENT ANALYST Rule Out COVID-19 11/10/2022 11/10/2022 11/11/2022 12:17 PM CDT Rule Out COVID-19 03/07/2023 03/07/2023 03/07/2023 1:20 PM CDT Rule Out COVID-19 12/26/2023 12/26/2023 12/26/2023 9:50 AM CDT Rule Out COVID-19 04/09/2024 04/09/2024 04/10/2024 6:48 PM CDT Assessment Noted Time PHQ-9 Depression Total Score: 2 04/02/20 21 10:19 AM CDT documented as of this encounter Care Teams Evaluator Transfer Students Relationship Specialty Start Date End Date Marija Edgar APRN TECHNICAL RESEARCH SCIENTIST PCP - General Nurse Practitioner 04/30/20 04/14/23 Esha Grimm PA-C [address] [place] [address] PCP - General Family Medicine 05/04/23 Lita Oseguera Personal Advocate & Liaison (PAL) 02/28/20 03/27/23 Marija Edgar APRN TECHNICAL RESEARCH SCIENTIST Assigned PCP 06/08/20 04/29/23 Mynor Broussard MD 6363 [facility] 500 [place] [address] Assigned Surgical Provider 06/01/20 11/28/21 Keisha Dotson MD 909 [place] [address] Assigned Neuroscience Provider 06/04/20 04/01/23 Galo Burrell MD Assigned Heart and Vascular Provider 10/05/20 04/02/22 [facility] [address] [place] [address] Pharmacist Pharmacist 04/17/21 Rain Galaviz PA-C [address] [place] [address] [address] [place] [address] Physician Potable Water Treatment Operator Dermatology 04/28/21 Summer Lara MD [address] [place] [address] 117724 Assigned OBGYN Provider 05/31/21 2 Tavia Wyatt MD [address] [place] [address] [phone] Dermatology 07/14/[address] [facility] [place], [place] 3340[address] Assigned Musculoskeletal Provider 08/30/21 03/17/22 Erica Farrell APRN TECHNICAL RESEARCH SCIENTIST 6405 [facility] [address] [place] [address] Nurse Practitioner Cardiovascular Disease 09/09/21 Tavia Wyatt MD [address] [place] [address] Assigned Surgical Provider 11/29/21 05/07/22 Diana Desir [facility] [address] [place] [address] Assigned MTM Pharmacist 01/02/22 Rich Barrett MD [address] 56[address] Physician Ophthalmology 01/21/22 Neil Kent MD 500 [place], [place] [address] Dermatology 02/24/22 Roney Story DPM 166[address] [facility] 300 [place], [place] 8[address] Assigned Musculoskeletal Provider 03/20/22 08/13/22 Erica Farrell APRN TECHNICAL RESEARCH SCIENTIST 1700 [place] [address] Assigned Heart and Vascular Provider 04/03/22 04/16/22 Diana Desir [facility] [address] [place] [address] Assigned MTM Pharmacist 04/07/22 [place] David [place] [address]305 [facility] [place] [address] Assigned Surgical Provider 05/08/22 10/08/22 Galo Burrell MD Assigned Heart and Vascular Provider 04/17/22 06/11/22 Livan Sharif MD [address] [place], [place] [address] Cardiovascular Disease 05/14/22 Livan Sharif MD [address] [place] [address] Assigned Heart and Vascular Provider 06/12/22 07/23/22 Catherine Cm MD [address] [place], [place] 309995 Cardiovascular Disease 07/21/22 Valery Veronica, PAUcheC 909 [place], [place] 565085 Physician Potable Water Treatment Operator Dermatology 07/21/22 Catherine Cm MD [address] [place] 7[address]15 Assigned Heart and Vascular Provider 07/24/22 11/05/22 Johnny Murillo MD [address] [facility] [address] [place] [address] 401004 Assigned Musculoskeletal Provider 08/14/22 10/08/22 Brea Quinn APRN TECHNICAL RESEARCH SCIENTIST 500 [place] [address] Nurse Practitioner Dermatology 09/21/22 Brea Quinn APRN TECHNICAL RESEARCH SCIENTIST 6401 [facility] [place] [address] Assigned Surgical Provider 10/09/22 05/01/24 [place] [address] [address] [facility] 300 [place], [place] 621867 Assigned Musculoskeletal Provider 10/09/22 05/01/24 Livan Sharif MD [address] [facility] [address] [place] [address] Assigned Heart and Vascular Provider 11/06/22 11/12/22 Catherine Cm MD [address] [facility] [address] [place] [address] Assigned Heart and Vascular Provider 11/13/22 05/27/23 Sydnie Martinez RN Personal Advocate & Liaison (PAL) Family Medicine 03/28/23 07/31/23 Alfonso Renteria MD 5775 [facility] 200 [place], [place] 739216 Assigned Neuroscience Provider 04/02/23 Cheng Todd PA-C [address] [place] [address] Assigned PCP 04/30/23 07/15/23 Radha Lomeli APRN TECHNICAL RESEARCH SCIENTIST 6405 [facility] [address] [place] 425625 Assigned Heart and Vascular Provider 05/28/23 Jelena David OD [address] [facility] [place] [address] MD Ophthalmology 06/15/23 Pao Joseph, VJ Personal Advocate & Liaison (PAL) Nurse 08/01/23 11/07/23 Esha Grimm PA-C [address] [place] [phone] Assigned PCP 07/16/23 Valery Veronica PA-C [address] [place] [address] 122675 Physician Potable Water Treatment Operator Dermatology 09/19/23 Rey Tay MD [address] [place] [address] [id number] Gastroenterology 09/20/23 Rocky Zepeda DO [address] [place] [address] 527355 Physician Gastroenterology 09/20/23 Philip Dumont MD [address] [place] [address] 095715 Physician Ophthalmology 09/22/23 Meredith Carrera PA-C [address] [place] [address] Assigned Gastroenterology Provider 11/01/23 Neil Kent MD [address] [place] [address] Dermatology 11/02/23 [place] [address] [place] [address] Neurological Surgery 12/26/23 Audrey Waite PAUcheC 500 [place] [address] Physician Potable Water Treatment Operator Dermatology 02/28/24 Valery Veronica PAUcheC 569916 [address] [place] [address] Physician Potable Water Treatment Operator Dermatology 04/10/24 Herminia Hatch MD [facility] [place] [address] Assigned Rheumatology Provider 07/02/24 documented as of this encounter
--- OUTSIDE RECORDS SUMMARY | 2024-08-28 18:22 | XMS_ITS | Encounter Summary ---
Author Organization [place] Address [address] [place] [address] Care Team Providers Care Ethylbenzene Cracking Supervisor Name Role Phone Marija Edgar APRN NURSE CHEMICAL DEPENDENCY Primary Care Provider + Marija Edgar APRN NURSE CHEMICAL DEPENDENCY Unavailable Diana Desir [facility] Unavailable Rain Galaviz PA-C Unavailable Tavia Wyatt MD Unavailable Erica Farrell APRN NURSE CHEMICAL DEPENDENCY Unavailable Rich Barrett MD Unavailable [phone] Neil Kent MD Unavailable Diana Desir [facility] Unavailable Livan Sharif MD Unavailable Catherine Cm MD Unavailable + Valery Veronica PA-C Unavailable [phone] Brea Quinn APRN NURSE CHEMICAL DEPENDENCY Unavailable Brea Quinn APRN NURSE CHEMICAL DEPENDENCY Unavailable Jose Francisco Johnson MD Unavailable Catherine Cm MD Unavailable + Sydnie Martinez RN Unavailable Unavailable Alfonso Renteria MD Unavailable [phone] Esha Grimm PA-C Primary Care Provider Cheng Todd PA-C Unavailable Radha Lomeli APRN NURSE CHEMICAL DEPENDENCY Unavailable Jelena David OD Unavailable [phone] Pao Joseph RN Unavailable Unavailable Esha Grimm PA-C Unavailable [phone] Valery Veronica PA-C Unavailable [phone] Rey Tay MD Unavailable Rocky Zepeda DO Unavailable Philip Dumont MD Unavailable Meredith Carrera PA-C Unavailable Neil Kent MD Unavailable Juan Pablo Emmanuel MD Unavailable Audrey Waite PA-C Unavailable JeremíasValery damon PA-C Unavailable Herminia Hatch MD Unavailable Encounter Details Date Type Department Care Team (Late st Contact Info) Description 04/12/2023 [facility] Medical Advice [facility] [address] [facility] [address] [place] [address] Livan Sharif MD [address] [place] [address] Social History Tobacco Use Types [...] do you attend [facility] or [facility] services? 1 to 4 times [...] Answer Date Recorded PHQ-2 Score 0 03/10/2023 [facility] - Occupational Stress [...] in a detention (including now)? 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 Kim Swann, We are in [place], but asked a tech here to check the photo. He said the spot you chose is OK but he thinks we should have the [facility] techs check in with you as you may need to have some extra prep gelif you have have issues with the pads. We are reaching out to that [facility] team to let them know you are having some issues. Team [address] [place] [address] Sharif [phone] documented in this encounter Plan of Treatment Upcoming Encounters Date Type Department Care Team (Late st Contact Info) Description 10/23/2024 9:30 AM CDT Office Visit [address], [address] [place] [address] [place] [address] [place], [place] [id number] Johnny Penn MD [address] [place] [id number] documented as of this encounter Visit Diagnoses Not on filedocumented in this encounter Additional Health Concerns Infection Onset Date Last Indicated Resolved Time Rule Out COVID-19 12/26/2023 12/26/2023 12/26/2023 9:50 AM CDT Rule Out COVID-19 04/09/2024 04/09/2024 04/10/2024 6:48 PM CDT Assessment Noted Time PHQ-9 Depression Total Score: 5 03/10/20 6:49 AM CDT documented as of this encounter Care Teams Ethylbenzene Cracking Supervisor Relationship Specialty Start Date End Date Marija Edgar APRN NURSE CHEMICAL DEPENDENCY PCP - General Nurse Practitioner 04/30/20 04/14/23 Esha Grimm PA-C [address] [place] [address] PCP - General Family Medicine 05/04/23 Marija Edgar APRN NURSE CHEMICAL DEPENDENCY Assigned PCP 06/08/20 04/29/23 Diana Desir, [facility] [address] [place] [address] Pharmacist Pharmacist 04/17/21 Rain Galaviz PA-C [address] [place] [address] [address] [place] [id number] Physician Emergency Vehicle Dispatcher Dermatology 04/28/21 Tavia Wyatt MD [address] [place] [address] [address] [facility] [place] [id number] Dermatology 07/14/21 Erica Farrell APRN NURSE CHEMICAL DEPENDENCY [address] [place], [place] [address] Nurse Practitioner Cardiovascular Disease 09/09/21 Rich Barrett MD [address] [place] [address] Physician Ophthalmology 01/21/22 Neil Kent MD [address] [place] [address] 885735 Dermatology 02/24/22 Diana Desir, [facility] [address] [place], [place] 883036 Assigned [place] Pharmacist 04/07/22 Livan Sharif MD [address] [facility] [place] [address] Cardiovascular Disease 05/14/22 Catherine Cm MD [address] [place] [address] Cardiovascular Disease 07/21/22 Valery Veronica, PAUcheC [address] [place] [address] 051105 Physician Emergency Vehicle Dispatcher Dermatology 07/21/22 Brea Quinn APRN NURSE CHEMICAL DEPENDENCY [address] [place] [address] Nurse Practitioner Dermatology 09/21/22 Brea Quinn APRN NURSE CHEMICAL DEPENDENCY [address] [facility] [place] [address] Assigned Surgical Provider 10/09/22 05/01/24 [place] [address] [facility] [address] [place] [address] Assigned Musculoskeletal Provider 10/09/22 05/01/24 Catherine Cm MD [address] [facility] [address] [place] [address] Assigned Heart and Vascular Provider 11/13/22 05/27/23 Sydnie Martinez, RN Personal Advocate & Liaison (PAL) Family Medicine 03/28/23 07/31/23 Alfonso Renteria MD [address] [facility] 200 [place], [place] [address] Assigned Neuroscience Provider 04/02/23 Cheng Todd PA-C [address] [place] [address] [id number] Assigned PCP 04/30/23 07/15/23 Radha Lomeli APRN NURSE CHEMICAL DEPENDENCY [address] [place] [address] Assigned Heart and Vascular Provider 05/28/23 Jelena David OD [address] [place] [address] MD Ophthalmology 06/15/23 Pao Joseph, RN Personal Advocate & Liaison (PAL) Nurse 08/01/23 11/07/23 Esha Grimm PA-C [address] [place] [phone] Assigned PCP 07/16/23 Valery Veronica PA-C [address] [place] [address] 316055 Physician Emergency Vehicle Dispatcher Dermatology 09/19/23 Rey Tay MD [address] [place] [address] 476115 MD Gastroenterology 09/20/23 Rocky Zepeda DO [address] [place] [address] 855525 Physician Gastroenterology 09/20/23 Philip Dumont MD [address] [place] [address] 176595 Physician Ophthalmology 09/22/23 Meredith Carrera PA-C [address] [place] [address] Assigned Gastroenterology Provider 11/01/23 Neil Kent MD [address] [address] Dermatology 11/02/23 [place] [address] [place] [address] Neurological Surgery 12/26/23 Audrey Waite PA-C 500 [place] [address] Physician Emergency Vehicle Dispatcher Dermatology 02/28/24 Valery Veronica PA-C [address] [place] [address] Physician Emergency Vehicle Dispatcher Dermatology 04/10/24 Herminia Hatch MD [address] [place] [address] [id number] Assigned Rheumatology Provider 07/02/24 documented as of this encounter
--- OUTSIDE RECORDS SUMMARY | 2024-08-28 18:22 | XMS_ITS | Encounter Summary ---
Author Organization [place] Address [address] [place] [address] Care Team Providers Care Low Voltage Technician Name Role Phone Lita Oseguera Unavailable Unavailable Marija Edgar APRN PROOF PASSER Primary Care Provider + Marija Edgar APRN PROOF PASSER Unavailable [phone] Mynor Broussard MD Unavailable [phone] Keisha Dotson MD Unavailable Galo Burrell MD Unavailable Unavailable Diana Desir [facility] Unavailable Rain Galaviz PA-C Unavailable Summer Lara MD Unavailable [phone] Tavia Wyatt MD Unavailable Johnny Murillo MD Unavailable Erica Farrell APRN PROOF PASSER Unavailable Tavia Wyatt MD Unavailable Diana Desir [facility] Unavailable Rich Barrett MD Unavailable [phone] Neil Kent MD Unavailable Roney Story DPM Unavailable Erica Farrell MANAGER EMPLOYMENT PROOF PASSER Unavailable Diana Desir [facility] Unavailable Jelena David OD Unavailable Galo Burrell MD Unavailable Unavailable Livan Sharif MD Unavailable Livan Sharif MD Unavailable Catherine Cm MD Unavailable + Valery Veronica PA-C Unavailable [phone] Catherine Cm MD Unavailable + Johnny Murillo MD Unavailable [phone] Brea Quinn MANAGER EMPLOYMENT PROOF PASSER Unavailable [phone] Brea Quinn MANAGER EMPLOYMENT PROOF PASSER Unavailable [phone] Jose Francisco Johnson MD Unavailable Livan Sharif MD Unavailable + IsCatherine hobbs MD Unavailable + Sydnie Martinez RN Unavailable Unavailable Alfonso Renteria MD Unavailable Esha Grimm PA-C Primary Care Provider Cheng Todd PA-C Unavailable Radha Lomeli MANAGER EMPLOYMENT PROOF PASSER Unavailable [phone] Jelena David OD Unavailable Pao Joseph RN Unavailable Unavailable Esha Grimm PA-C Unavailable [phone] Valery Veronica PA-C Unavailable [phone] Rey Tay MD Unavailable Rocky Zepeda DO Unavailable Philip Dumont MD Unavailable DebiMeredithC Unavailable [phone] Neil Kent MD Unavailable Juan Pablo Emmanuel MD Unavailable [phone] Audrey Waite PA-C Unavailable [phone] Valery Veronica PA-C Unavailable [phone] Herminia Hatch MD Unavailable Reason for Visit * Reason Onset Date Comments Refill Request 10/31/2021 sertraline Encounter Details Date Type Department Care Team (Late st Contact Info) Description 10/31/[address] [address] Marija Edgar APRN PROOF PASSER [address] [place] [address] Refill Request (sertraline) Social History [...] How often do you attend zoroastrian or sabianist serv ices? Never 09/22/2021 Do [...] in a long-term (including now)? 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 CPA. Diana Desir, PharmD Medication Therapy Management Provider, [facility] Pager: [phone] * Telephone Encounter - Aleyda Scott RN [...] daily. Pt has follow up tomorrow with [facility] pharmacist to continue to work on taper. Appointments in Next Year Nov 03, 2021 3:30 PM Pharmacist Visit with Diana Desir [facility] ([facility] ) [phone] Informed patient that will route refill request [...] can be reached at: Other phone number: [phone] Best Time: ANYTIME Can we leave a detailed message on this number? YES Call taken on 10/31/2021 at 10:31 AM by Amalia Deluca documented in this encounter Plan of Treatment Upcoming Encounters Date Type Department Care Team (Late st Contact Info) Description 10/23/2024 9:30 AM CDT Office Visit [facility] [address] [place] [address], [address] [place] [address] [place] [address] [address] [place] [address] Johnny Penn MD [address] [place] [address] documented as [...] COVID-19 05/17/2022 05/17/2022 05/17/2022 10:20 PM GRINDER MACHINE KNIFE SETTER Rule Out COVID-19 06/09/2022 06/09/2022 06/09/2022 9:35 AM GRINDER MACHINE KNIFE SETTER COVID-19 06/09/2022 06/09/2022 06/30/2022 11:4 1 PM GRINDER MACHINE KNIFE SETTER Rule Out COVID-19 11/10/2022 11/10/2022 11/11/2022 12:17 PM CDT Rule Out COVID-19 03/07/2023 03/07/2023 03/07/2023 1:20 PM CDT Rule Out COVID-19 12/26/2023 12/26/2023 12/26/2023 9:50 AM CDT Rule Out COVID-19 04/09/2024 04/09/2024 04/10/2024 6:48 PM CDT Assessment Noted Time PHQ-9 Depression Total Score: 2 04/02/20 21 10:19 AM CDT documented as of this encounter Care Teams Low Voltage Technician Relationship Specialty Start Date End Date Marija Edgar APRN CNP PCP - General Nurse Practitioner 04/30/20 04/14/23 Esha Grimm PA-C [address] [place] [address] PCP - General Family Medicine 05/04/23 Lita Oseguera Personal Advocate & Liaison (PAL) 02/28/20 03/27/23 Marija Edgar APRN PROOF PASSER Assigned PCP 06/08/20 04/29/23 Mynor Broussard MD [address] [facility] 500 [place] [address]255 Assigned Surgical Provider 06/01/20 11/28/21 Keisha Dotson MD [address] [place], [place] 566275 Assigned Neuroscience Provider 06/04/20 04/01/23 Galo Burrell MD Assigned Heart and Vascular Provider 10/05/20 04/02/22 [facility] [address] [place] [address] Pharmacist Pharmacist 04/17/21 Rain Galaviz PA-C [address] [facility] [address] [place] [address] Physician Stove Tender Dermatology 04/28/21 Summer Lara MD [address] [place] [address] 221984 Assigned OBGYN Provider 05/31/21 2 Tavia Wyatt MD [address] [place] [address] 291124 Dermatology 07/14/21 Johnny Murillo MD [address] [place] [address] Assigned Musculoskeletal Provider 08/30/21 03/17/22 Erica Farrell APRN PROOF PASSER [address] [facility] [address] [place] [address] Nurse Practitioner Cardiovascular Disease 09/09/21 Tavia Wyatt MD [address] [place] [address] Assigned Surgical Provider 11/29/21 05/07/22 Diana Desir [facility] [address] [place] [address] Assigned MTM Pharmacist 01/02/22 Rich Barrett MD [address] [facility] [address] [place], [place] 2[address] Physician Ophthalmology 01/21/22 Neil Kent MD 500 [place], [place] 408585 Dermatology 02/24/22 Roney Story DPM [address] [facility] [address] [place] [address] Assigned Musculoskeletal Provider 03/20/22 08/13/22 Erica Farrell APRN PROOF PASSER [address]00 [place] [address] Assigned Heart and Vascular Provider 04/03/22 04/16/22 Diana Desir [facility] [address] [place], [place] 432[address] Assigned MTM Pharmacist 04/07/22 Frankie Jelena TempletonSONJA woods [address] [place] [address] Assigned Surgical Provider 05/08/22 10/08/22 Galo Burrell MD Assigned Heart and Vascular Provider 04/17/22 06/11/22 Livan Sharif MD [address] [place] 498395 MD Cardiovascular Disease 05/14/22 Livan Sharif MD [address] [place] 481295 Assigned Heart and Vascular Provider 06/12/22 07/23/22 Catherine Cm MD [address] [facility] [address] [place] 904525 Cardiovascular Disease 07/21/22 Valery Veronica, PA-C [address] [place], [place] 888005 Physician Stove Tender Dermatology 07/21/22 Catherine Cm MD [address] [place] 035815 Assigned Heart and Vascular Provider 07/24/22 11/05/22 Johnny Murillo MD [address] [place] [address] Assigned Musculoskeletal Provider 08/14/22 10/08/22 Brea Quinn APRN PROOF PASSER 500 [place] [address] Nurse Practitioner Dermatology 09/21/22 Brea Quinn APRN PROOF PASSER [address]01 [place] [address] Assigned Surgical Provider 10/09/22 05/01/24 [place] [address] [facility] 300 [place] [address] Assigned Musculoskeletal Provider 10/09/22 05/01/24 Livan Sharif MD [address] [place], [facility] [address] [place] [address] Assigned Heart and Vascular Provider 11/06/22 11/12/22 Catherine Cm MD [address] [facility] S [facility] [address] [place], [place] [address] Assigned Heart and Vascular Provider 11/13/22 05/27/23 Sydnie Martinez RN Personal Advocate & Liaison (PAL) Family Medicine 03/28/23 07/31/23 Alfonso Renteria MD [address] [facility] 200 [place] [address] Assigned Neuroscience Provider 04/02/23 Cheng Todd PA-C [address] [place] [address] [id number] Assigned PCP 04/30/23 07/15/23 Radha Lomeli APRN PROOF PASSER [address] [place] [address] Assigned Heart and Vascular Provider 05/28/23 Jelena David OD [address] [place] [address] MD Ophthalmology 06/15/23 Pao Joseph, RN Personal Advocate & Liaison (PAL) Nurse 08/01/23 11/07/23 Esha Grimm PA-C [address] [place] [phone] Assigned PCP 07/16/23 Valery Veronica PA-C [address] [place] [address] 463395 Physician Stove Tender Dermatology 09/19/23 Rey Tay MD [address] [place] [address] Gastroenterology 09/20/23 Rocky Zepeda DO [address] [place] [address] 070785 Physician Gastroenterology 09/20/23 Philip Dumont MD [address] [place] [address] 504315 Physician Ophthalmology 09/22/23 Meredith Carrera PA-C [address] [place] [address] 604635 Assigned Gastroenterology Provider 11/01/23 Neil Kent MD [address] [address] Dermatology 11/02/23 [place] [address] 414347 Neurological Surgery 12/26/23 Audrey Waite PA-C 500 [place] [address] Physician Stove Tender Dermatology 02/28/24 Valery Veronica PA-C 315897 [address] [place] [address] Physician Stove Tender Dermatology 04/10/24 Herminia Hatch MD [facility]5 [place], [place] 21684125 Assigned Rheumatology Provider 07/02/24 documented as of this encounter
--- OUTSIDE RECORDS SUMMARY | 2024-08-28 18:22 | XMS_ITS | Encounter Summary ---
Author Organization [place] Address [address] [place] [address] Care Team Providers Care Supplemental Manager Name Role Phone Lita Oseguera Unavailable Unavailable Marija Edgar APRN [employer] Primary Care Provider + Marija Edgar APRN [employer] HEM[employer] Unavailable [phone] Mynor Broussard MD Unavailable [phone] Keisha Dotson MD Unavailable Galo Burrell MD Unavailable Unavailable Diana Desir [facility] Unavailable Rain Galaviz PA-C Unavailable Summer Lara MD Unavailable [phone] Tavia Wyatt MD Unavailable Johnny Murillo MD Unavailable Erica Farrell APRN [employer] Unavailable Tavia Wyatt MD Unavailable Diana Desir [facility] Unavailable Rich Barrett MD Unavailable [phone] Neil [place] MD Unavailable Roney Story DPM Unavailable Erica Farrell LEGAL ADVISER [employer] Unavailable Diana Desir [facility] Unavailable Jelena David OD Unavailable Galo Burrell MD Unavailable Unavailable Livan Sharif MD Unavailable Livan Sharif MD Unavailable Catherine Cm MD Unavailable + Valery Veronica PA-C Unavailable [phone] Catherine Cm MD Unavailable + Johnny Murillo MD Unavailable [phone] Brea Quinn LEGAL ADVISER [employer] Unavailable [phone] Brea Quinn LEGAL ADVISER [employer] Unavailable [phone] Jose Francisco Johnson MD Unavailable Livan Sharif MD Unavailable + IsCatherine hobbs MD Unavailable + Sydnie Martinez RN Unavailable Unavailable Alfonso Renteria MD Unavailable Esha Grimm PA-C Primary Care Provider Cheng Todd PA-C Unavailable Radha Lomeli LEGAL ADVISER [employer] Unavailable [phone] Jelena David OD Unavailable Pao Joseph RN Unavailable Unavailable Esha Grimm PA-C Unavailable [phone] Valery Veronica PA-C Unavailable [phone] Rey Tay MD Unavailable Rocky Zepeda DO Unavailable Philip Dumont MD Unavailable Meredith Carrera PA-C Unavailable [phone] Neil [place] MD Unavailable Juan Pablo Emmanuel MD Unavailable [phone] Audrey Waite PA-C Unavailable [phone] Valery Veronica PA-C Unavailable [phone] Herminia Hatch MD Unavailable Encounter Details Date Type Department Care Team (Late st Contact Info) Description 11/04/2021 [facility] Medical Advice [address] [address] [facility] [address] [place] [address] Social History Tobacco Use Types Packs/Day Years [...] How often do you attend taoism or sikh serv ices? Never 09/22/2021 Do [...] Answer Date Recorded PHQ-2 Score 2 09/22/2021 [facility] [...] in a fci (including now)? No 09/22/2021 Tiff Depression Scale Answer Date Recorded Tiff Depression Score 5 01/14/2021 Last EPDS Self Harm Result Not on file 01/14 Education Answer Date Recorded What is the highest level of school you have completed or the highest degree you have received? 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 Gender Identity Female 03/02/2021 5:45 PM [...] Visit [facility] [address], [address] [place] [address] [place] [address] [address] [place] [address] Johnny Penn MD [address] [place] [address] documented as of this encounter Visit Diagnoses Not on filedocumented in this encounter Additional Health Concerns Infection Onset Date Last Indicated Resolved Time Rule Out COVID-19 12/18/2021 12/18/2021 12/19/2021 11:34 AM CDT Rule Out COVID-19 02/24/2022 02/24/2022 02/25/2022 1:08 PM CDT Rule Out COVID-19 04/26/2022 04/26/2022 04/26/2022 6:47 AM CDT Rule Out COVID-19 05/17/2022 05/17/2022 05/17/2022 10:20 PM TREE WORKER Rule Out COVID-19 06/09/2022 06/09/2022 06/09/2022 9:35 AM TREE WORKER COVID-19 06/09/2022 06/09/2022 06/30/2022 11:4 1 PM TREE WORKER Rule Out COVID-19 11/10/2022 11/10/2022 11/11/2022 12:17 PM CDT Rule Out COVID-19 03/07/2023 03/07/2023 03/07/2023 1:20 PM CDT Rule Out COVID-19 12/26/2023 12/26/2023 12/26/2023 9:50 AM CDT Rule Out COVID-19 04/09/2024 04/09/2024 04/10/2024 6:48 PM CDT Assessment Noted Time PHQ-9 Depression Total Score: 2 04/02/20 10:19 AM CDT documented as of this encounter Care Teams Supplemental Manager Relationship Specialty Start Date End Date Marija Edgar APRN [employer] PCP - General Nurse Practitioner 04/30/20 04/14/23 Esha Grimm PA-C [address] [place] [address] PCP - General Family Medicine 05/04/23 Lita Oseguera Personal Advocate & Liaison (PAL) 02/28/20 03/27/23 Marija Edgar APRN [employer]EM[employer] Assigned PCP 06/08/20 04/29/23 Mynor Broussard MD [address] [address] Assigned Surgical Provider 06/01/20 11/28/21 Keisha Dotson MD 9 [place] [address] Assigned Neuroscience Provider 06/04/20 04/01/23 Galo Burrell MD Assigned Heart and Vascular Provider 10/05/20 04/02/22 Diana Desir, [facility] [address] [place] [address] Pharmacist Pharmacist 04/17/21 Rain Galaviz PA-C [address] [place] [address] [address] RA[address] [place] [address] Physician Physician'S Aide Dermatology 04/28/21 Summer Lara MD [address] [place] [address] [id number] Assigned OBGYN Provider 05/31/21 9 2 Tavia Wyatt MD [address] [place] [address] [id number] Dermatology 07/14/21 Johnny Murillo MD [facility] [place], [place] 36[address] Assigned Musculoskeletal Provider 08/30/21 03/17/22 Erica Farrell APRN [employer] [address] [facility] [address] [place] [address] Nurse Practitioner Cardiovascular Disease 09/09/21 Tavia Wyatt MD [address] [place], [place] 262220 Assigned Surgical Provider 11/29/21 05/07/22 Diana Desir, [facility] [address] [place], [place] 121856 Assigned MTM Pharmacist 01/02/22 Rich Barrett MD [address] [address] Physician Ophthalmology 01/21/22 Neil Kent MD 500 [place], [place] 546265 Dermatology 02/24/22 Roney Story DPM [address] [facility] [address] [place], [place] 712[address] Assigned Musculoskeletal Provider 03/20/22 08/13/22 Erica Farrell APRN [employer] 1700 [place] [address] Assigned Heart and Vascular Provider 04/03/22 04/16/22 Diana Desir [facility] [address] [place] [address] Assigned MTM Pharmacist 04/07/22 Jelean David OD [address] [place] [address] Assigned Surgical Provider 05/08/22 10/08/22 Galo Burrell MD Assigned Heart and Vascular Provider 04/17/22 06/11/22 Livan Sharif MD [address] [place] [address] Cardiovascular Disease 05/14/22 Livan Sharif MD [address] [place] [address] Assigned Heart and Vascular Provider 06/12/22 07/23/22 Catherine Cm MD [address] [place], [place] 986[address] Cardiovascular Disease 07/21/22 Valery Veronica, PAUcheC [address] [place], [place] 854285 Physician Physician'S Aide Dermatology 07/21/22 Catherine Cm MD [address] [place] [address] Assigned Heart and Vascular Provider 07/24/22 11/05/22 Johnny Murillo MD [address] [place] [address] Assigned Musculoskeletal Provider 08/14/22 10/08/22 Brea Quinn APRN [employer] [address] [place] [address] Nurse Practitioner Dermatology 09/21/22 Brea Quinn APRN [employer] 6401 [facility] [place] [address] Assigned Surgical Provider 10/09/22 05/01/24 [place] [address] [facility] 300 [place] [address] Assigned Musculoskeletal Provider 10/09/22 05/01/24 Livan Sharif MD [address] [facility] [address] [place] [address] Assigned Heart and Vascular Provider 11/06/22 11/12/22 Catherine Cm MD [address]00 [place] [address] Assigned Heart and Vascular Provider 11/13/22 05/27/23 Sydnie Martinez RN Personal Advocate & Liaison (PAL) Family Medicine 03/28/23 07/31/23 Alfonso Renteria MD 5775 [facility] 200 [place], [place] 342416 Assigned Neuroscience Provider 04/02/23 Cheng Todd PA-C [address] [place] [address] Assigned PCP 04/30/23 07/15/23 Radha Lomeli APRN [employer] [address] [place], [place] 2324[address] Assigned Heart and Vascular Provider 05/28/23 Jelena David OD [address] [place] [address] MD Ophthalmology 06/15/23 Pao Joseph, VJ Personal Advocate & Liaison (PAL) Nurse 08/01/23 11/07/23 Esha Grimm PA-C [address] [place] [address] Assigned PCP 07/16/23 Valery Veronica PA-C [address] [place] [address] 408795 Physician Physician'S Aide Dermatology 09/19/23 Rey Tay MD [address] [place] [address] 115715 Gastroenterology 09/20/23 Rocky Zepeda DO [address] [place] [address] 528135 Physician Gastroenterology 09/20/23 Philip Dumont MD [address] [place] [address] 001345 Physician Ophthalmology 09/22/23 Meredith Carrera PA-C [address] [place] [address] Assigned Gastroenterology Provider 11/01/23 Neil Kent MD [address] [address] Dermatology 11/02/23 [place] [address] [place] [address] Neurological Surgery 12/26/23 Audrey Waite PA-C 500 [place] [address] Physician Physician'S Aide Dermatology 02/28/24 Valery Veronica PA-C 989796 [place] [address] Physician Physician'S Aide Dermatology 04/10/24 Herminia Hatch MD [facility]5 [place] [address] Assigned Rheumatology Provider 07/02/24 documented as of this encounter
--- OUTSIDE RECORDS SUMMARY | 2024-08-28 18:22 | XMS_ITS | Encounter Summary ---
Author Organization [place] Address [address] [place] [address] Care Team Providers Care Supervisor Customer Services Name Role Phone Lita Oseguera Unavailable Unavailable Marija Edgar APRN WOOL SORTER Primary Care Provider + Marija Edgar APRN WOOL SORTER Unavailable [phone] Mynor Broussard MD Unavailable [phone] Keisha Dotson MD Unavailable [phone] Galo Burrell MD Unavailable Unavailable Diana Desir [facility] Unavailable [phone] Rain Galaviz PA-C Unavailable Summer Lara MD Unavailable [phone] Tavia Wyatt MD Unavailable Johnny Murillo MD Unavailable Erica Farrell APRN WOOL SORTER Unavailable Tavia Wyatt MD Unavailable Diana Desir [facility] Unavailable Rich Barrett MD Unavailable [phone] Neil [place] MD Unavailable Roney Story DPM Unavailable Erica Farrell FELT HANGER WOOL SORTER Unavailable Diana Desir [facility] Unavailable Jelena David OD Unavailable Galo Burrell MD Unavailable Unavailable Livan Sharif MD Unavailable Livan Sharif MD Unavailable Catherine Cm MD Unavailable + Valery Veronica PA-C Unavailable [phone] Catherine Cm MD Unavailable + Johnny Murillo MD Unavailable [phone] Brea Quinn FELT HANGER WOOL SORTER Unavailable [phone] Brea Quinn FELT HANGER WOOL SORTER Unavailable [phone] Jose Francisco Johnson MD Unavailable Livan Sharif MD Unavailable + IsCatherine hobbs MD Unavailable + Sydnie Martinez RN Unavailable Unavailable Alfonso Renteria MD Unavailable Esha Grimm PA-C Primary Care Provider Cheng Todd PA-C Unavailable Radha Lomeli FELT HANGER WOOL SORTER Unavailable [phone] Jelena David OD Unavailable Pao Joseph RN Unavailable Unavailable Esha Grimm PA-C Unavailable [phone] Valery Veronica PA-C Unavailable [phone] Rey Tay MD Unavailable Rocky Zepeda DO Unavailable Philip Dumont MD Unavailable Meredith Carrera PA-C Unavailable [phone] Neil [place] MD Unavailable Juan Pablo Emmanuel MD Unavailable [phone] Audrey Waite PA-C Unavailable [phone] Valery Veronica PA-C Unavailable [phone] Herminia Hatch MD Unavailable Encounter Details Date Type Department Care Team (Late st Contact Info) Description 10/17/2021 [facility] Medical Advice [address] [address] [facility] [address] [place] [address] Social History Tobacco Use Types Packs/Day Years [...] How often do you attend rastafarian or jehovah's witness serv ices? Never 09/22/2021 [...] Answer Date Recorded PHQ-2 Score 2 09/22/2021 [facility] [...] in a halfway (including now)? No 09/22/2021 [place] Depression Scale Answer Date Recorded [place] Depression Score 5 01/14/2021 Last EPDS Self Harm Result Not on file 01/14 Education Answer Date Recorded What is the highest level of school you have completed or the highest degree you have received? 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 FABRICATION OPERATOR Gender Identity Female 03/02/2021 5:45 PM [...] Visit [facility] [address], [address] [place] [address] [place] [address] [address] [address] [address] Johnny Penn MD [address] [place] [address] documented as of this encounter Visit Diagnoses Not on filedocumented in this encounter Additional Health Concerns Infection Onset Date Last Indicated Resolved Time Rule Out COVID-19 12/18/2021 12/18/2021 12/19/2021 11:34 AM CDT Rule Out COVID-19 02/24/2022 02/24/2022 02/25/2022 1:08 PM CDT Rule Out COVID-19 04/26/2022 04/26/2022 04/26/2022 6:47 AM CDT Rule Out COVID-19 05/17/2022 05/17/2022 05/17/2022 10:20 PM FABRICATION OPERATOR Rule Out COVID-19 06/09/2022 06/09/2022 06/09/2022 9:35 AM FABRICATION OPERATOR COVID-19 06/09/2022 06/09/2022 06/30/2022 11:4 1 PM FABRICATION OPERATOR Rule Out COVID-19 11/10/2022 11/10/2022 11/11/2022 12:17 PM CDT Rule Out COVID-19 03/07/2023 03/07/2023 03/07/2023 1:20 PM CDT Rule Out COVID-19 12/26/2023 12/26/2023 12/26/2023 9:50 AM CDT Rule Out COVID-19 04/09/2024 04/09/2024 04/10/2024 6:48 PM CDT Assessment Noted Time PHQ-9 Depression Total Score: 2 04/02/20 10:19 AM CDT documented as of this encounter Care Teams Supervisor Customer Services Relationship Specialty Start Date End Date Marija Edgar APRN WOOL SORTER PCP - General Nurse Practitioner 04/30/20 04/14/23 Esha Grimm PA-C [address] [place] [address] PCP - General Family Medicine 05/04/23 Lita Oseguera Personal Advocate & Liaison (PAL) 02/28/20 03/27/23 Marija Edgar APRN WOOL SORTER Assigned PCP 06/08/20 04/29/23 Mynor Broussard MD [address] [address] Assigned Surgical Provider 06/01/20 11/28/21 Keisha Dotson MD [address] [place] [address] Assigned Neuroscience Provider 06/04/20 04/01/23 Galo Burrell MD Assigned Heart and Vascular Provider 10/05/20 04/02/22 Diana Desir, [facility] [address] [place] [address] Pharmacist Pharmacist 04/17/21 Rain Galaviz PA-C [address] [place] [address] [address] RAZO [address] [place] [address] Physician High School Hvac R Instructor Dermatology 04/28/21 Summer Lara MD [address] [place] [address] 214294 Assigned OBGYN Provider 05/31/21 9 2 Tavia Wyatt MD [address] [place] [address] [id number] Dermatology 07/14/21 Johnny Murillo MD [facility] [address] [place], [place] [address] Assigned Musculoskeletal Provider 2/20/22 9/7/22 Erica Farrell APRN WOOL SORTER 6405 [facility] [address] [place] [address] Nurse Practitioner Cardiovascular Disease 09/09/21 Tavia Wyatt MD [address] [place], [place] 272520 Assigned Surgical Provider 11/29/21 05/07/22 Diana Desir [facility] [address] [place] [address] Assigned MTM Pharmacist 01/02/22 Rich Barrett MD [address] 444895 Physician Ophthalmology 01/21/22 Neil [place] MD 500 [place], [place] 888145 Dermatology 02/24/22 Roney Story DPM [address] [facility] [address] [place], [place] [address] Assigned Musculoskeletal Provider 03/20/22 08/13/22 Erica Farrell APRN WOOL SORTER 1700 [place] [address] Assigned Heart and Vascular Provider 04/03/22 04/16/22 Diana Desir [facility] [address] [place] [address] Assigned MTM Pharmacist 04/07/22 Jelena David OD [address] [facility] [place] [address] Assigned Surgical Provider 05/08/22 10/08/22 Galo Burrell MD Assigned Heart and Vascular Provider 04/17/22 06/11/22 Livan Sharif MD [address] [place] [address] Cardiovascular Disease 05/14/22 Livan Sharif MD [address] [place] [address] Assigned Heart and Vascular Provider 06/12/22 07/23/22 Catherine Cm MD [address] [place], [place] 4418[address] Cardiovascular Disease 07/21/22 Valery Veronica, PAUcheC 909 [place], [place] 2077[address] Physician High School Hvac R Instructor Dermatology 07/21/22 Catherine Cm MD [address] [place] [address] Assigned Heart and Vascular Provider 07/24/22 11/05/22 Johnny Murillo MD [address] [facility] [address] [place] [address] Assigned Musculoskeletal Provider 08/14/22 10/08/22 Brea Quinn APRN WOOL SORTER [address] [place] [address] Nurse Practitioner Dermatology 09/21/22 Brea Quinn APRN WOOL SORTER 6401 [facility] [place] [address] Assigned Surgical Provider 10/09/22 05/01/24 [place] [address] [address] [facility] 300 [place] [address] Assigned Musculoskeletal Provider 10/09/22 05/01/24 Livan Sharif MD [address] [facility] [address] [place] [address] Assigned Heart and Vascular Provider 11/06/22 11/12/22 Catherine Cm MD [address] [facility] [address] [place] [address] Assigned Heart and Vascular Provider 11/13/22 05/27/23 Sydnie Martinez RN Personal Advocate & Liaison (PAL) Family Medicine 03/28/23 07/31/23 Alfonso Renteria MD 5775 [facility] 200 [place], [place] 376716 Assigned Neuroscience Provider 04/02/23 Cheng Todd PA-C [address] [place] [address] Assigned PCP 04/30/23 07/15/23 Radha Lomeli APRN WOOL SORTER [address] [place], [place] 150[address] Assigned Heart and Vascular Provider 05/28/23 Jelena David OD [address] [facility] [place] [address] Ophthalmology 06/15/23 Pao Joseph, VJ Personal Advocate & Liaison (PAL) Nurse 08/01/23 11/07/23 Esha Grimm PA-C [address] [place] [address] Assigned PCP 07/16/23 Valery Veronica PA-C [address] [place] [address] 996215 Physician High School Hvac R Instructor Dermatology 09/19/23 Rey Tay MD [address] [place] [address] 350895 Gastroenterology 09/20/23 Rocky Zepeda DO [address] [place] [address] 680875 Physician Gastroenterology 09/20/23 Philip Dumont MD [address] [place] [address] 522165 Physician Ophthalmology 09/22/23 Meredith Carrera PA-C [address] [place] [address] Assigned Gastroenterology Provider 11/01/23 Neil Kent MD [address] [address] Dermatology 11/02/23 [place] [address] [place] [address] Neurological Surgery 12/26/23 Audrey Waite PA-C 500 [place] [address] Physician High School Hvac R Instructor Dermatology 02/28/24 Valery Veronica PA-C 987075 [address], [place] [address] Physician High School Hvac R Instructor Dermatology 04/10/24 Hreminia Hatch MD [employer] [place] [address] Assigned Rheumatology Provider 07/02/24 documented as of this encounter
--- OUTSIDE RECORDS SUMMARY | 2024-08-28 18:22 | XMS_ITS | Encounter Summary ---
Author Organization [facility] Address [address] [place] [address] Care Team Providers Care Laborer Wrecking And Salvaging Name Role Phone iLta Oseguera Unavailable Unavailable Marija Edgar APRN APPLICATION SUPPORT INTERN Primary Care Provider + Chanelle Mccann APRN CNM Unavailab le Kyara De La Fuente RN Unavailable [phone] Marija Edgar APRN APPLICATION SUPPORT INTERN Unavailable [phone] Myonr Broussard MD Unavailable [phone] Keisha Dotson MD Unavailable Mary Mejia Unavailable Unavailable Stacey Briones CLINICAL SCIENCES PROFESSOR Unavailable Lesley Guillermo CHW Unavailable Mary Mejia Unavailable Unavailable Lita Oseguera Unavailable Unavailable Galo Burrell MD Unavailable Unavailable Cristina Wood Unavailable Lesley Guillermo CHW Unavailable Meredith Bedoya Unavailable Unavailable Cristina Wood Unavailable Diana Desir [facility] Unavailable Ruhland, Rain Lena PA-C Unavailable Summer Lara MD Unavailable [phone] Summer Lara MD Unavailable [phone] Summer Lara MD Unavailable [phone] Tavia Wyatt MD Unavailable [phone] Johnny Murillo MD Unavailable +1- Erica Farrell SEGMENT BLOCK LAYER APPLICATION SUPPORT INTERN Unavailable VikasTeresita H Unavailable Tavia Wyatt MD Unavailable [phone] Diana Desir [facility] Unavailable [phone] Rich Barrett MD Unavailable Neil Kent MD Unavailable Roney Story [facility] Unavailable Erica Farrell APRN APPLICATION SUPPORT INTERN Unavailable Diana Desir [facility] Unavailable [phone] Jelena David OD Unavailable Galo Burrell MD Unavailable Unavailable Livan Sharif MD Unavailable Livan Sharif MD Unavailable + Catherine Cm MD Unavailable + Valery Veronica PA-C Unavailable [phone] Catherine Cm MD Unavailable + Johnny Murillo MD Unavailable +1- Brea Quinn SEGMENT BLOCK LAYER APPLICATION SUPPORT INTERN Unavailable +[phone] Brea Quinn SEGMENT BLOCK LAYER APPLICATION SUPPORT INTERN Unavailable [phone] Jose Francisco Johnson MD Unavailable Livan Sharif MD Unavailable Catherine Cm MD Unavailable + Sydnie Martinez RN Unavailable Unavailable Alfonso Renteria MD Unavailable [phone] Esha Grimm PA-C Primary Care Provider Cheng Todd PA-C Unavailable Radha Lomeli APRN APPLICATION SUPPORT INTERN Unavailable FrankieJelena OD Unavailable [phone] Pao Joseph RN Unavailable Unavailable Esha Grimm PA-C Unavailable [phone] Valery Veronica PA-C Unavailable [phone] Rey Tay MD Unavailable Rocky Zepeda DO Unavailable Philip Dumont MD Unavailable Meredith Carrera PA-C Unavailable Neil Kent MD Unavailable Juan Pablo Emmanuel MD Unavailable Audrey Waite PA-C Unavailable [phone] JeremíasValery damon PA-C Unavailable [phone] Herminia Hatch MD Unavailable Encounter Details Date Type Department Care Team (Late st Contact Info) Description 08/01/2020 MyC Medical Advice [facility] [id number] [place] [phone] Marija Edgar APRN APPLICATION SUPPORT INTERN [address] [place] [address] Social History Tobacco Use Types Packs/Day [...] CDT Legal Sex Female 4:13 AM WATER SUPPLY ENGINEER Gender Identity Female 03/02/2021 5:45 PM CDT Sexual Orientation Straight 02/28/2020 12 :51 AM CDT COVID-19 Exposure Response Date Recorded In the last month, have you been in contact with someone who was confirmed or suspected to have Coronavirus / COVID-19? No / Unsure 07/30/2020 4:53 PM WATER SUPPLY ENGINEER documented as of this encounter Miscellaneous Notes * Telephone Encounter - Estephania Black RN - 08/01/2020 9:11 AM WATER SUPPLY ENGINEER Schedule patient for Zio Patch. Detailed message left on phone and through [facility]. Estephania Black RN Flex R SUPPLY ENGINEER * Telephone Encounter - Marija Edgar APRN CNP - 08/01/2020 8:46 AM WATER SUPPLY ENGINEER Please help patient schedule her zio patch. This order has been in place since 05/2020 and a new order was placed this week. R SUPPLY ENGINEER documented in this encounter Plan of Treatment Upcoming Encounters Date Type Department Care Team (Late st Contact Info) Description 10/23/2024 9:30 AM CDT Office Visit [facility] - [address], [address] [place] [address] [place] [address] [address] [place] [address] Johnny Penn MD [address] [facility] [place] [address] (work) documented as of this encounter Visit Diagnoses Not on filedocumented in this encounter Additional Health Concerns Infection Onset Date Last Indicated Resolved Time Rule Out COVID-19 08/30/2020 08/30/2020 08/30/2020 5:05 PM WATER SUPPLY ENGINEER Rule Out COVID-19 09/24/2020 09/24/2020 09/24/2020 9:24 AM CDT Rule Out COVID-19 11/05/2020 11/05/2020 11/06/2020 1:09 PM CDT Rule Out COVID-19 05/11/2021 05/11/2021 05/13/2021 10:18 AM CDT Rule Out COVID-19 07/13/2021 07/13/2021 07/14/2021 3:04 PM WATER SUPPLY ENGINEER Rule Out COVID-19 07/18/2021 07/18/2021 07/20/2021 1:56 PM WATER SUPPLY ENGINEER COVID-19 07/18/2021 07/18/2021 08/08/2021 11:3 9 PM WATER SUPPLY ENGINEER Rule Out COVID-19 12/18/2021 12/18/2021 12/19/2021 11:34 AM CDT Rule Out COVID-19 02/24/2022 02/24/2022 02/25/2022 1:08 PM CDT Rule Out COVID-19 04/26/2022 04/26/2022 04/26/2022 6:47 AM CDT Rule Out COVID-19 05/17/2022 05/17/2022 05/17/2022 10:20 PM WATER SUPPLY ENGINEER Rule Out COVID-19 06/09/2022 06/09/2022 06/09/2022 9:35 AM WATER SUPPLY ENGINEER COVID-19 06/09/2022 06/09/2022 06/30/2022 11:4 1 PM WATER SUPPLY ENGINEER Rule Out COVID-19 11/10/2022 11/10/2022 11/11/2022 12:17 PM CDT Rule Out COVID-19 03/07/2023 03/07/2023 03/07/2023 1:20 PM CDT Rule Out COVID-19 12/26/2023 12/26/2023 12/26/2023 9:50 AM CDT Rule Out COVID-19 04/09/2024 04/09/2024 04/10/2024 6:48 PM CDT Assessment Noted Time PHQ-9 Depression Total Score: 9 06/25/20 7:04 AM WATER SUPPLY ENGINEER documented as of this encounter Care Teams Laborer Wrecking And Salvaging Relationship Specialty Start Date End Date Marija Edgar APRN APPLICATION SUPPORT INTERN PCP - General Nurse Practitioner 04/30/20 04/14/23 Esha Grimm PA-C [address] [place] [phone] PCP - General Family Medicine 05/04/23 Lita Oseguera Personal Advocate & Liaison (PAL) 02/28/20 03/27/23 Chanelle Mccann APRN CNM [address] [place] [address] 200 [place] [address] Assigned OBGYN Provider 05/02/2005/09 Kyara De La Fuente, RN Specialty Palm Gatherer Neurology 06/04/20 03/05/21 Marija Edgar APRN APPLICATION SUPPORT INTERN Assigned PCP 06/08/20 04/29/23 Mynor Broussard MD [address] [facility] 500 [place], [place] [id number] Assigned Surgical Provider 06/01/20 11/28/21 Keisha Dotson MD [address] [place], [place] [address] Assigned Neuroscience Provider 06/04/20 04/01/23 Mary Mejia Financial Resource Worker 08/07/20 08/21/20 Stacey Briones, [facility] Lead Palm Gatherer Primary Care - CC 08/11/2012/30 Lesley Guillermo, [facility] Community Health Worker 08/11/2010/01 Mary Mejia Financial Resource Worker 09/02/20 10/06/20 Lita Oseguera Personal Advocate & Liaison (PAL) Family Medicine 09/10/20 09/21/20 Galo Burrell MD Assigned Heart and Vascular Provider 10/05/20 04/02/22 Cristina Wood Financial Resource Worker 10/07/20 10/14/20 Lesley Guillermo, [facility] Community Health Worker 10/23/2012/30 Meredith Bedoya Financial Resource Worker 10/23/20 11/23/20 Cristina Wood Financial Resource Worker 02/09/21 02/09/21 Diana Desir, [facility] [address] [place], [place] [address] Pharmacist Pharmacist 04/17/21 Rain Galaviz PA-C [address] [place] [address] [address] [place], [place] [phone] Physician Drafter Seismograph Dermatology 04/28/21 Summer Lara MD [address] [place] [address] Assigned OBGYN Provider 05/10/2105/23 Summer Lara MD [address] [place] [address] Assigned OBGYN Provider 05/31/21 2 Summer Lara MD [address] [place] [address] Assigned OBGYN Provider 05/24/2105/30 Tavia Wyatt MD [address] [place] [address] Dermatology 07/14/21 Johnny Murillo MD [address] [place] [address] Assigned Musculoskeletal Provider 08/30/21 03/17/22 Erica Farrell APRN APPLICATION SUPPORT INTERN [address] [facility] [address] [place], [place] [address] Nurse Practitioner Cardiovascular Disease 09/09/21 Teresita Bean [facility] [address] [place] [place] [phone] Pharmacist Pharmacist 09/24/21 09/29/21 Tavia Wyatt MD [address] [place] [address] Assigned Surgical Provider 11/29/21 05/07/22 Diana Desir, [facility] [address] [place] [address] Assigned MTM Pharmacist 01/02/22 Rich Barrett MD [address] [facility] [address] [place], [place] [address] Physician Ophthalmology 01/21/22 Neil Kent MD [address] [place] [address] Dermatology 02/24/22 Ronye Story DPM [address] [facility] [address] [place] [address] Assigned Musculoskeletal Provider 03/20/22 08/13/22 Erica Farrell APRN APPLICATION SUPPORT INTERN [address] [place] [address] Assigned Heart and Vascular Provider 04/03/22 04/16/22 [facility] [address] [place], [place] [address] Assigned MTM Pharmacist 04/07/22 Jelena David OD [address] [facility] [place] [address] Assigned Surgical Provider 05/08/22 10/08/22 Galo Burrell MD Assigned Heart and Vascular Provider 04/17/22 06/11/22 Livan Sharif MD [address] [place] [phone] Cardiovascular Disease 05/14/22 Livan Sharif MD [address] [place] [address] Assigned Heart and Vascular Provider 06/12/22 07/23/22 Catherine Cm MD [address] [address] Cardiovascular Disease 07/21/22 Valery Veronica, PA-C [address] [place] [address] Physician Drafter Seismograph Dermatology 07/21/22 Catherine Cm MD [address] [address] Assigned Heart and Vascular Provider 07/24/22 11/05/22 Johnny Murillo MD [address] [place] [address] Assigned Musculoskeletal Provider 08/14/22 10/08/22 Brea Quinn APRN APPLICATION SUPPORT INTERN [address] [place] [address] [id number] Nurse Practitioner Dermatology 09/21/22 Brea Quinn APRN APPLICATION SUPPORT INTERN [address] [place] [address] Assigned Surgical Provider 10/09/22 05/01/24 [place] [address] [address] Assigned Musculoskeletal Provider 10/09/22 05/01/24 Livan Sharif MD [address] [place] [address] Assigned Heart and Vascular Provider 11/06/22 11/12/22 Catherine Cm MD [address] [place] [address] Assigned Heart and Vascular Provider 11/13/22 05/27/23 Sydnie Martinez RN Personal Advocate & Liaison (PAL) Family Medicine 03/28/23 07/31/23 Alfonso Renteria MD [address] [facility] 200 [place] [address] Assigned Neuroscience Provider 04/02/23 Cheng Todd PA-C [address] [place] [phone] Assigned PCP 04/30/23 07/15/23 Radha Lomeli APRN APPLICATION SUPPORT INTERN [address] [place] [address] Assigned Heart and Vascular Provider 05/28/23 Jelena David OD [facility] [facility] [place] [address] Ophthalmology 06/15/23 Pao Joseph, VJ Personal Advocate & Liaison (PAL) Nurse 08/01/23 11/07/23 Esha Grimm PA-C [address] [place] [phone] Assigned PCP 07/16/23 Valery Veronica PA-C 9 [place] [address] Physician Drafter Seismograph Dermatology 09/19/23 Rey Tay MD 9 [place] [address] MD Gastroenterology 09/20/23 Rocky Zepeda DO 500 [place] [address] Physician Gastroenterology 09/20/23 Philip Dumont MD 6 [place] [address] Physician Ophthalmology 09/22/23 Meredith Carrera PA-C [address] [place] [address] Assigned Gastroenterology Provider 11/01/23 Neil Kent MD [address] [address] Dermatology 11/02/23 [place] [address] [address] [facility] [address], [place] 9[address] Neurological Surgery 12/26/23 Audrey Waite PA-C 500 [place] [address] Physician Drafter Seismograph Dermatology 02/28/24 Valery Veronica PA-C [id number] [place] [address] Physician Drafter Seismograph Dermatology 04/10/24 Herminia Hatch MD [address] [place] [address] Assigned Rheumatology Provider 07/02/24 documented as of this encounter
--- OUTSIDE RECORDS SUMMARY | 2024-08-28 18:22 | XMS_ITS | Encounter Summary ---
Author Organization [place] Address [address] [place] [address] Care Team Providers Care Cupola Tapper Helper Name Role Phone Marija Edgar ARLENE PRODUCTION AIDE Unavailable [phone] Diana Desir [facility] Unavailable Rain Galaviz PA-C Unavailable [phone] Tavia Wyatt MD Unavailable Erica Farrell APRN PRODUCTION AIDE Unavailable Rich Barrett MD Unavailable [phone] Neil Kent MD Unavailable Diana Desir [facility] Unavailable Livan Sharif MD Unavailable Catherine Cm MD Unavailable + Valery Veronica PA-C Unavailable Brea Quinn APRN PRODUCTION AIDE Unavailable Brea Quinn APRN PRODUCTION AIDE Unavailable Jose Francisco Johnson MD Unavailable Catherine Cm MD Unavailable + Sydnie Martinez RN Unavailable Unavailable Alfonso Renteria MD Unavailable [phone] Esha Grimm PA-C Primary Care Provider Cheng Todd PA-C Unavailable Radha Lomeli APRN PRODUCTION AIDE Unavailable Jelena David OD Unavailable Pao Joseph RN Unavailable Unavailable Esha Grimm PA-C Unavailable [phone] Valery Veronica PA-C Unavailable Rey Tay MD Unavailable Rocky Zepeda DO Unavailable Philip Dumont MD Unavailable [phone] Meredith Carrera PA-C Unavailable Neil Kent MD Unavailable Juan Pablo Emmanuel MD Unavailable Audrey Waite PA-C Unavailable Valery Veronica-C Unavailable Herminia Hatch MD Unavailable Encounter Details Date Type Department Care Team (Late st Contact Info) Description 04/18/2023 MyC Medical Advice [facility] [address] [address] Mary Calvo Social History Tobacco [...] attend [facility] or worship services? 1 to 4 times [...] Answer Date Recorded PHQ-2 Score 0 03/10/2023 [facility] of Occupat [...] exercise at this level? 30 min 03/10/2023 Opdyke Depression Scale Answer Date Recorded Opdyke Depression Score 5 01/14/2021 Last EPDS Self [...] PM CDT Legal Sex Female 4:13 AM YARD ENGINEER Gender Identity Female 03/02/2021 5:45 PM [...] CDT Office Visit [facility] Neurology [address], [address] [place] [phone] [place] [address] [place], [place] [phone] Johnny Penn MD [address] [facility] [place] [address] documented as of this encounter Visit Diagnoses Not on filedocumented in this encounter Additional Health Concerns Infection Onset Date Last Indicated Resolved Time Rule Out COVID-12/26/2023 12/26/2023 12/26/2023 9:50 AM CDT Rule Out COVID-19 04/09/2024 04/09/2024 04/10/2024 6:48 PM CDT Assessment Noted Time PHQ-9 Depression Total Score: 5 03/10/20 6:49 AM CDT documented as of this encounter Care Teams Cupola Tapper Helper Relationship Specialty Start Date End Date Esha Grimm PA-C [address] [place] [phone] PCP - General Family Medicine 05/04/23 Marija Edgar APRN PRODUCTION AIDE Assigned PCP 06/08/20 04/29/23 Diana Desir, [facility] [address] [place] [address] Pharmacist Pharmacist 04/17/21 Rain Galaviz PA-C [address] [place] [address] [address] [place] [address] Physician Cadd Instructor Dermatology 04/28/21 Tavia Wyatt MD [address] [place] [address] [address] [place] [address] Dermatology 07/14/21 Erica Farrell APRN PRODUCTION AIDE [address] [place], [place] [address] Nurse Practitioner Cardiovascular Disease 09/09/21 Rich Barrett MD [address] [facility] [address] [place], [place] [address] Physician Ophthalmology 01/21/22 Neil Kent MD 500 [place], [place] [address] Dermatology 02/24/22 Diana Desir, [facility] [address] [place], [place] [address] Assigned [place] Pharmacist 04/07/22 Livan Sharif MD [address] [place] [address] Cardiovascular Disease 05/14/22 Catherine Cm MD [address] [place], [place] [address] Cardiovascular Disease 07/21/22 Valery Veronica, PAUcheC 9[address] [place], [place] [address] Physician Cadd Instructor Dermatology 07/21/22 Brea Quinn APRN PRODUCTION AIDE 500 [place] [address] Nurse Practitioner Dermatology 09/21/22 Brea Quinn APRN PRODUCTION AIDE [address] [facility] [place] [address] Assigned Surgical Provider 10/09/22 05/01/24 [place] [address] [place] [address] Assigned Musculoskeletal Provider 10/09/22 05/01/24 Catherine Cm MD [address] [place] [address] Assigned Heart and Vascular Provider 11/13/22 05/27/23 Sydnie Martinez RN Personal Advocate & Liaison (PAL) Family Medicine 03/28/23 07/31/23 Alfonso Renteria MD 5775 [facility] 200 [place] [address] Assigned Neuroscience Provider 04/02/23 Cheng Todd PA-C [address] [place] [address] [id number] Assigned PCP 04/30/23 07/15/23 Radha Lomeli APRN PRODUCTION AIDE [address] [facility] [address] [place] [address] Assigned Heart and Vascular Provider 05/28/23 Jelena David OD [address] [facility] [place] [id number] MD Ophthalmology 06/15/23 Pao Joseph, RN Personal Advocate & Liaison (PAL) Nurse 08/01/23 11/07/23 Esha Grimm PA-C [address] [place] [address] Assigned PCP 07/16/23 Valery Veronica PA-C [address] [place] [address] Physician Cadd Instructor Dermatology 09/19/23 Rey Tay MD [address] [place] [address] MD Gastroenterology 09/20/23 Rocky Zepeda DO [address] [place] [address]80[address] Physician Gastroenterology 09/20/23 Philip Dumont MD [address] [place] [address]1575 Physician Ophthalmology 09/22/23 Meredith Carrera PA-C [address] [place] [address] 565155 Assigned Gastroenterology Provider 11/01/23 Neil Kent MD [address] [address] Dermatology 11/02/23 [place] [address] [place] [address] Neurological Surgery 12/26/23 Audrey Waite PA-C 500 [place] [address] Physician Cadd Instructor Dermatology 02/28/24 Valery Veronica PA-C [address] [place] [address] Physician Cadd Instructor Dermatology 04/10/24 Herminia Hatch MD [address] [place] [address] [id number] Assigned Rheumatology Provider 07/02/24 documented as of this encounter
--- OUTSIDE RECORDS SUMMARY | 2024-08-28 18:22 | XMS_ITS | Encounter Summary ---
Author Organization [facility] Address [address] [place] [address] Care Team Providers Care Business Operations Analyst Name Role Phone Lita Oseguera Unavailable Unavailable Marija Edgar APRN ASSEMBLER FINGER BUFFS Primary Care Provider + Chanelle Mccann APRN CNM Unavailab le Kyara De La Fuente RN Unavailable [phone] Marija Edgar APRN ASSEMBLER FINGER BUFFS Unavailable Mynor Broussard MD Unavailable [phone] Keisha Dotson MD Unavailable [phone] Mary Mejia Unavailable Unavailable Stacey Briones MAGNETIC TAPE COMPOSER OPERATOR Unavailable Lesley Guillermo CHW Unavailable Mary Mejia Unavailable Unavailable Lita Oseguera Unavailable Unavailable Galo Burrell MD Unavailable Unavailable Cristina Wood Unavailable Lesley Guillermo CHW Unavailable Meredith Bedoya Unavailable Unavailable Cristina Wood Unavailable Diana Desir [facility] Unavailable Ruhland, Rain Lena PA-C Unavailable Summer Lara MD Unavailable [phone] Summer Lara MD Unavailable [phone] Summer Lara MD Unavailable [phone] Tavia Wyatt MD Unavailable [phone] Johnny Murillo MD Unavailable +[phone] Erica Farrell MOBILE DEVELOPER ASSEMBLER FINGER BUFFS Unavailable VikasTeresita H Unavailable Tavia Wyatt MD Unavailable [phone] Diana Desir [facility] Unavailable [phone] Rich Barrett MD Unavailable Neil Kent MD Unavailable Roney Story [facility] Unavailable Erica Farrell APRN ASSEMBLER FINGER BUFFS Unavailable Diana Desir [facility] Unavailable [phone] Jelena David OD Unavailable Galo Burrell MD Unavailable Unavailable Livan Sharif MD Unavailable Livan Sharif MD Unavailable + Catherine Cm MD Unavailable + Valery Veronica PA-C Unavailable [phone] Catherine Cm MD Unavailable + Johnny Murillo MD Unavailable +[phone]- Brea Quinn MOBILE DEVELOPER ASSEMBLER FINGER BUFFS Unavailable [phone] Brea Quinn MOBILE DEVELOPER ASSEMBLER FINGER BUFFS Unavailable [phone] Jose Francisco Johnson MD Unavailable Livan Sharif MD Unavailable Catherine Cm MD Unavailable + Sydnie Martinez RN Unavailable Unavailable Alfonso Renteria MD Unavailable [phone] Esha Grimm PA-C Primary Care Provider Cheng Todd PA-C Unavailable ArmaniRadha APRN ASSEMBLER FINGER BUFFS Unavailable Jelena David OD Unavailable Pao Joseph RN Unavailable Unavailable Esha Grimm PA-C Unavailable [phone] Valery Veronica PA-C Unavailable Rey Tay MD Unavailable Rocky Zepeda DO Unavailable Philip Dumont MD Unavailable Meredith Carrera PA-C Unavailable [phone] Neil Kent MD Unavailable Juan Pablo Emmanuel MD Unavailable Audrey Waite PA-C Unavailable [phone] JeremíasValery damon PA-C Unavailable [phone] Herminia Hatch MD Unavailable Encounter Details Date Type Department Care Team (Late st Contact Info) Description 07/29/2020 MyC Medical Advice [facility] Epilepsy Care [address], [address] [place] [address] Keisha Dotson MD [address] [place] [address] Social History Tobacco Use Types [...] PM CDT Legal Sex Female 4:13 AM RETAIL ACCOUNT MANAGER Gender Identity Female 03/02/2021 5:45 PM CDT Sexual Orientation Straight 02/28/2020 12 :51 AM CDT COVID-19 Exposure Response Date Recorded In the last month, have you been in contact with someone who was confirmed or suspected to have Coronavirus / COVID-19? No / Unsure 07/30/2020 4:53 PM RETAIL ACCOUNT MANAGER documented as of this encounter Plan of Treatment Upcoming Encounters Date Type Department Care Team (Late st Contact Info) Description 10/23/2024 9:30 AM CDT Office Visit [facility] Neurology [address], [address] [place] [address] [place] [address] [address] Johnny Penn MD [address] [place] [address] documented as of this encounter Visit Diagnoses Not on filedocumented in this encounter Additional Health Concerns Infection Onset Date Last Indicated Resolved Time Rule Out COVID-19 07/30/2020 07/30/2020 07/30/2020 7:11 PM RETAIL ACCOUNT MANAGER Rule Out COVID-19 08/30/2020 08/30/2020 08/30/2020 5:05 PM RETAIL ACCOUNT MANAGER Rule Out COVID-19 09/24/2020 09/24/2020 09/24/2020 9:24 AM CDT Rule Out COVID-19 11/05/2020 11/05/2020 11/06/2020 1:09 PM CDT Rule Out COVID-19 05/11/2021 05/11/2021 05/13/2021 10:18 AM CDT Rule Out COVID-19 07/13/2021 07/13/2021 07/14/2021 3:04 PM RETAIL ACCOUNT MANAGER Rule Out COVID-19 07/18/2021 07/18/2021 07/20/2021 1:56 PM RETAIL ACCOUNT MANAGER COVID-19 07/18/2021 07/18/2021 08/08/2021 11:3 9 PM RETAIL ACCOUNT MANAGER Rule Out COVID-19 12/18/2021 12/18/2021 12/19/2021 11:34 AM CDT Rule Out COVID-19 02/24/2022 02/24/2022 02/25/2022 1:08 PM CDT Rule Out COVID-19 04/26/2022 04/26/2022 04/26/2022 6:47 AM CDT Rule Out COVID-19 05/17/2022 05/17/2022 05/17/2022 10:20 PM RETAIL ACCOUNT MANAGER Rule Out COVID-19 06/09/2022 06/09/2022 06/09/2022 9:35 AM RETAIL ACCOUNT MANAGER COVID-19 06/09/2022 06/09/2022 06/30/2022 11:4 1 PM RETAIL ACCOUNT MANAGER Rule Out COVID-19 11/10/2022 11/10/2022 11/11/2022 12:17 PM CDT Rule Out COVID-19 03/07/2023 03/07/2023 03/07/2023 1:20 PM CDT Rule Out COVID-19 12/26/2023 12/26/2023 12/26/2023 9:50 AM CDT Rule Out COVID-19 04/09/2024 04/09/2024 04/10/2024 6:48 PM CDT Assessment Noted Time PHQ-9 Depression Total Score: 9 06/25/20 20 7:04 AM RETAIL ACCOUNT MANAGER documented as of this encounter Care Teams Business Operations Analyst Relationship Specialty Start Date End Date Marija Edgar APRN CNP PCP - General Nurse Practitioner 04/30/20 04/14/23 Esha Grimm PA-C [address] [place] [phone] PCP - General Family Medicine 05/04/23 Lita Oseguera Personal Advocate & Liaison (PAL) 02/28/20 03/27/23 Chanelle Mccann APRN CNM [address] [facility] [address] [place] [address] Assigned OBGYN Provider 05/02/2005/09 Kyara De La Fuente, RN Specialty Materials Branch Chief Neurology 06/04/20 03/05/21 Marija Edgar APRN ASSEMBLER FINGER BUFFS Assigned PCP 06/08/20 04/29/23 Mynor Broussard MD [address] [facility] 500 [place] [address] Assigned Surgical Provider 06/01/20 11/28/21 Keisha Dotson MD [address]09 [place] [address] Assigned Neuroscience Provider 06/04/20 04/01/23 Mary Mejia Financial Resource Worker 08/07/20 08/21/20 Stacey Briones, MAGNETIC TAPE COMPOSER OPERATOR Lead Materials Branch Chief Primary Care - CC 08/11/2012/30 Lesley Guillermo, W Community Health Worker 08/11/2010/01 Mary Mejia Financial Resource Worker 09/02/20 10/06/20 Lita Oseguera Personal Advocate & Liaison (PAL) Family Medicine 09/10/20 09/21/20 Galo Burrell MD Assigned Heart and Vascular Provider 10/05/20 04/02/22 Cristina Wood Financial Resource Worker 10/07/20 10/14/20 Lesley Guillemro, [facility] Community Health Worker 10/23/2012/30 Meredith Bedoya Financial Resource Worker 10/23/20 11/23/20 Cristina Wood Financial Resource Worker 02/09/21 02/09/21 Diana Desir, [facility] [address] [place], [place] 909536 Pharmacist Pharmacist 04/17/21 Rain Galaviz PA-C [address] [place] [address] [address] [place], [place] [phone] Physician Plant Production Worker Dermatology 04/28/21 Summer Lara MD [address] [place] [address] [phone] Assigned OBGYN Provider 05/10/2105/23 Summer Lara MD [address] [place] [address] [phone] Assigned OBGYN Provider 05/31/21 2 Summer Lara MD [address] [place] [address] [phone] Assigned OBGYN Provider 05/24/2105/30 Tavia Wyatt MD [address] [place] [address] [phone] Dermatology 07/14/21 Johnny Murillo MD [address] [facility] [address] [place], [place] 938[address] Assigned Musculoskeletal Provider 08/30/21 03/17/22 Erica Farrell APRN ASSEMBLER FINGER BUFFS [address] [facility] [address] [place] [address] Nurse Practitioner Cardiovascular Disease 09/09/21 Teresita Bean [facility] [address] [facility] [address] [place] [phone] Pharmacist Pharmacist 09/24/21 09/29/21 Tavia Wyatt MD [address] [place], [place] 080310 Assigned Surgical Provider 11/29/21 05/07/22 [facility] [address] [place], [place] 572696 Assigned MTM Pharmacist 01/02/22 Rich Barrett MD [address] [facility] [address] [place], [place] 0[address] Physician Ophthalmology 01/21/22 Neil Kent MD [address] [place], [place] [phone] Dermatology 02/24/22 [place] [address] [facility] [address] [place], [place] 649347 Assigned Musculoskeletal Provider 03/20/22 08/13/22 Erica Farrell APRN ASSEMBLER FINGER BUFFS [address] [place] [address] Assigned Heart and Vascular Provider 04/03/22 04/16/22 Diana Desir, [facility] [address] [place] [address] Assigned MTM Pharmacist 04/07/22 Jelena David OD [address] [place] [address] Assigned Surgical Provider 05/08/22 10/08/22 Galo Burrell MD Assigned Heart and Vascular Provider 04/17/22 06/11/22 Livan Sharif MD [address] [place] [address] Cardiovascular Disease 05/14/22 Livan Sharif MD [address] [place] [address] Assigned Heart and Vascular Provider 06/12/22 07/23/22 Catherine Cm MD [address] [place] [address] Cardiovascular Disease 07/21/22 Valery Veronica, PAUcheC 909 [place] [address] Physician Plant Production Worker Dermatology 07/21/22 IsCatherine hobbs MD [address] [facility] [place] [address] Assigned Heart and Vascular Provider 07/24/22 11/05/22 Johnny Murillo MD [address] [phone] Assigned Musculoskeletal Provider 08/14/22 10/08/22 Brea Quinn APRN ASSEMBLER FINGER BUFFS [address] [place], [place] 488545 Nurse Practitioner Dermatology 09/21/22 Brea Quinn APRN ASSEMBLER FINGER BUFFS 64[address] [facility] [place] 110322 Assigned Surgical Provider 10/09/22 05/01/24 [place] [address] 704137 Assigned Musculoskeletal Provider 10/09/22 05/01/24 Livan Sharif MD [address] [facility]00 [place] 579095 Assigned Heart and Vascular Provider 11/06/22 11/12/22 Catherine Cm MD [address] [facility]00 [place] 160185 Assigned Heart and Vascular Provider 11/13/22 05/27/23 Sydnie Martinez RN Personal Advocate & Liaison (PAL) Family Medicine 03/28/23 07/31/23 Alfonso Renteria MD [address] [facility] [address] [place] [address] Assigned Neuroscience Provider 04/02/23 Cheng Todd PA-C [address] [place] [address] Assigned PCP 04/30/23 07/15/23 Radha Lomeli APRN ASSEMBLER FINGER BUFFS [address] [facility] [address] [place], [place] 6832[address] Assigned Heart and Vascular Provider 05/28/23 Jelena David OD [address] [facility] [place] [address] Ophthalmology 06/15/23 Pao Joseph, VJ Personal Advocate & Liaison (PAL) Nurse 08/01/23 11/07/23 Esha Grimm PA-C [address] [place] [phone] Assigned PCP 07/16/23 Valery Veronica PA-C [address] [place] [address] [phone] Physician Plant Production Worker Dermatology 09/19/23 Rey Tay MD [address] [place] [address] 459325 Gastroenterology 09/20/23 Rocky Zepeda DO [address] [place] [address] 174855 Physician Gastroenterology 09/20/23 Philip Dumont MD [address] [place] [address] Physician Ophthalmology 09/22/23 Meredith Carrera PA-C [address] [place] [address] Assigned Gastroenterology Provider 11/01/23 Neil Kent MD [address] [address] Dermatology 11/02/23 [place] [address] 353057 Neurological Surgery 12/26/23 Audrey Waite PA-C [address] [place] [address] Physician Plant Production Worker Dermatology 02/28/24 Valery Veronica PA-C [address] [place] [address] Physician Plant Production Worker Dermatology 04/10/24 Herminia Hatch MD [facility]5 [place] [address] Assigned Rheumatology Provider 07/02/24 documented as of this encounter
--- OUTSIDE RECORDS SUMMARY | 2024-08-28 18:22 | XMS_ITS | Encounter Summary ---
Author Organization [facility] Address [address] [place] [address] Care Team Providers Care Contract Administration Coordinator Name Role Phone Diana Desir [facility] Unavailable Rain Galaviz PA-C Unavailable Tavia Wyatt MD Unavailable Erica Farrell APRN PETROGRAPHY TEACHER Unavailable Rich Barrett MD Unavailable [phone] Neil Kent MD Unavailable Diana Desir [facility] Unavailable Livan Sharif MD Unavailable Catherine Cm MD Unavailable + Valery Veronica-C Unavailable Brea Quinn DIRECTOR FRANCHISE SALES PETROGRAPHY TEACHER Unavailable Brea Quinn DIRECTOR FRANCHISE SALES PETROGRAPHY TEACHER Unavailable Jose Francisco Johnson MD Unavailable Sydnie Martinez RN Unavailable Unavailable Alfonso Renteria MD Unavailable [phone] Esha Grimm PA-C Primary Care Provider [phone] Cheng Todd PA-C Unavailable [phone] Radha Lomeli APRN PETROGRAPHY TEACHER Unavailable Jelena David OD Unavailable Pao Joseph RN Unavailable Unavailable Esha Grimm PA-C Unavailable [phone] Valery Veronica PA-C Unavailable [phone] Rey Tay MD Unavailable Rocky Zepeda DO Unavailable Philip Dumont MD Unavailable Meredith Carrera PA-C Unavailable [phone] Neil Kent MD Unavailable Juan Pablo Emmanuel MD Unavailable Audrey Waite PA-C Unavailable JeremíasValery damon PA-C Unavailable [phone] Herminia Hatch MD Unavailable Reason for Visit * Reason Onset Date Comments Appointment 06/17/2023 Encounter Details Date Type Department Care Team (Late st Contact Info) Description 06/17/[address] [facility] [id number] [place] [phone] Esha Grimm PA-C [id number] [place] [phone] Appointment Social History Tobacco Use Types [...] PHQ-2 Score 0 06/20/2023 [facility] [...] exercise at this level? 30 min 03/10/2023 [place] Depression Scale Answer Date Recorded [place] Depression Score 5 01/14/2021 Last EPDS Self [...] an overnight group home, or couch-surfing.) Yes 06/20/2023 Are you [...] CDT Legal Sex Female 4:13 AM ELECTRIC DEICER INSPECTOR Gender Identity Female 03/02/2021 5:45 PM CDT Sexual Orientation Straight 02/28/2020 12 :51 AM CDT documented as of this encounter Miscellaneous Notes * Telephone Encounter - Lulu Day - 06/17/2023 7:19 AM CST [facility] doesn't have anything, we are down providers and they are all full today Lulu Day/ Top Icer TRIC DEICER INSPECTOR * Telephone Encounter - Rosio Eller - [...] we send this information to you in [employer] or would you prefer to receive a phone call?: Patient would prefer a phone call Okay to leave a detailed message?: Yes at Home number on file [phone] (home) Call taken on 06/17/2023 at 7:13 AM by Rosio Eller TRIC DEICER INSPECTOR documented in this encounter Plan of Treatment Upcoming Encounters Date Type Department Care Team (Late st Contact Info) Description 10/23/2024 9:30 AM CDT Office Visit [facility] Neurology [address], [address] [place] [phone] [place] [address] 720607 Johnny Penn MD [address] [place], [place] [address] documented as of this encounter Visit Diagnoses Not on filedocumented in this encounter Additional Health Concerns Infection Onset Date Last Indicated Resolved Time Rule Out COVID-19 12/26/2023 12/26/2023 12/26/2023 9:50 AM CDT Rule Out COVID-19 04/09/2024 04/09/2024 04/10/2024 6:48 PM CDT Assessment Noted Time PHQ-9 Depression Total Score: 6 05/16/20 23 9:29 AM ELECTRIC DEICER INSPECTOR documented as of this encounter Care Teams Contract Administration Coordinator Relationship Specialty Start Date End Date Esha Grimm PA-C [address] [place] [address] PCP - General Family Medicine 05/04/23 Diana Desir, [facility] [address] [place] [address] Pharmacist Pharmacist 04/17/21 Rain Galaviz PA-C [address] [place] [address] [address] [place] [address] Physician Prosthetic Makeup Designer Dermatology 04/28/21 Tavia Wyatt MD [address] [place] [address] [address] [place] [id number] Dermatology 07/14/21 Erica Farrell APRN PETROGRAPHY TEACHER [address] [place] [address]265 Nurse Practitioner Cardiovascular Disease 09/09/21 Rich Barrett MD 516 [facility] 9A [place], [place] [address] Physician Ophthalmology 01/21/22 Neil Kent MD 500 [place], [place] 35[address] Dermatology 02/24/22 [facility] 3033 [place] [address] Assigned MTM Pharmacist 04/07/22 Livan Sharif MD [address] [place] [address] Cardiovascular Disease 05/14/22 Catherine Cm MD 6[address] [facility] [address] [place] [address] Cardiovascular Disease 07/21/22 Valery Veronica PA-C 909 [place] [address] Physician Prosthetic Makeup Designer Dermatology 07/21/22 Brea Quinn APRN PETROGRAPHY TEACHER [address] [place] [address] Nurse Practitioner Dermatology 09/21/22 Brea Quinn APRN PETROGRAPHY TEACHER 6401 [place] [address] Assigned Surgical Provider 10/09/22 05/01/24 [place] [address] [facility] 300 [place] [address] Assigned Musculoskeletal Provider 10/09/22 05/01/24 Sydnie Martinez RN Personal Advocate & Liaison (PAL) Family Medicine 03/28/23 07/31/23 Alfonso Renteria MD 5775 [facility] 200 [place] [address] Assigned Neuroscience Provider 04/02/23 Cheng Todd PA-C [address] [place] [address] [phone] Assigned PCP 04/30/23 07/15/23 Radha Lomeli APRN PETROGRAPHY TEACHER [address] [place] [phone] [place] [address] Assigned Heart and Vascular Provider 05/28/23 Jelena David OD [address] [facility] [address] MD Ophthalmology 06/15/23 Pao Joseph, RN Personal Advocate & Liaison (PAL) Nurse 08/01/23 11/07/23 Esha Grimm PA-C [address] [place] [address] Assigned PCP 07/16/23 Valery Veronica PA-C [address] [place] [address] Physician Prosthetic Makeup Designer Dermatology 09/19/23 Rey Tay MD [address] [place] [address] Gastroenterology 09/20/23 Rocky Zepeda DO [address] [place] [address] 137765 Physician Gastroenterology 09/20/23 Philip Dumont MD [address] [place] [address]2355 Physician Ophthalmology 09/22/23 Meredith Carrera PA-C [address] [place] [address] 809245 Assigned Gastroenterology Provider 11/01/23 Neil Kent MD [address] 1086[address] Dermatology 11/02/23 [place] [address] 163667 Neurological Surgery 12/26/23 Audrey Waite PAUcheC 500 [place], [place] [address] Physician Prosthetic Makeup Designer Dermatology 02/28/24 Valery Veronica PA-C [address] [place] [address] Physician Prosthetic Makeup Designer Dermatology 04/10/24 Herminia Hatch MD [facility]5 [place], [place] [phone] Assigned Rheumatology Provider 07/02/24 documented as of this encounter
--- OUTSIDE RECORDS SUMMARY | 2024-08-28 18:22 | XMS_ITS | Encounter Summary ---
Author Organization [facility] Address [address] [place] [address] 20472 Care Team Providers Care Form Tamping Machine Operator Name Role Phone Marija Edgar APRN SHAREPOINT APPLICATION ARCHITECT Primary Care Provider + Marija Edgar APRN SHAREPOINT APPLICATION ARCHITECT Unavailable [phone] Keisha Dotson MD Unavailable Diana Desir [facility] Unavailable Rain Galaviz PA-C Unavailable Tavia Wyatt MD Unavailable [phone] Erica Farrell APRN SHAREPOINT APPLICATION ARCHITECT Unavailable Rich Barrett MD Unavailable Neil Kent MD Unavailable Diana Desir [facility] Unavailable Livan Sharif MD Unavailable Catherine Cm MD Unavailable + Valery Veronica PA-C Unavailable Brea Quinn APRN SHAREPOINT APPLICATION ARCHITECT Unavailable [phone] Brea Quinn APRN SHAREPOINT APPLICATION ARCHITECT Unavailable [phone] Jose Francisco Johnson MD Unavailable Catherine Cm MD Unavailable + Sydnie Martinez RN Unavailable Unavailable Alofnso Renteria MD Unavailable [phone] Esha Grimm PA-C Primary Care Provider Cheng Todd PA-C Unavailable Armani Radha Stovall APRN SHAREPOINT APPLICATION ARCHITECT Unavailable Frankie Jelena Garcia OD Unavailable Pao Joseph RN Unavailable Unavailable Esha Grimm PA-C Unavailable [phone] Valery Veronica PA-C Unavailable Rey Tay MD Unavailable Rocky Zepeda DO Unavailable Philip Dumont MD Unavailable Meredith Carrera PA-C Unavailable Neil Kent MD Unavailable Juan Pablo Emmanuel MD Unavailable [phone] Audrey Waite PA-C Unavailable [phone] JeremíasValery damon PA-C Unavailable Herminia Hatch MD Unavailable Encounter Details Date Type Department Care Team (Late st Contact Info) Description 03/29/2023 MyC Medical Advice [address] [address] Diana Desir, [facility] [address] [place], [place] 927866 Social History Tobacco Use Types Packs/Day Years [...] Answer Date Recorded PHQ-2 Score 0 03/10/2023 [facility] - [...] in a intermediate (including now)? No 03/10/2023 [place] Depression Scale Answer Date Recorded [place] Depression Score 5 01/14/2021 Last EPDS Self Harm Result Not on file 01/14 Education Answer Date Recorded What is the highest level of school you have completed or the highest degree you have received? 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 Gender Identity Female 03/02/2021 5:45 PM [...] CDT Office Visit [facility] Neurology [facility] [address] [facility], [address] [place] [address] [place] [address] [place] [address] Johnny Penn MD [address] [facility] [place] [address] documented as of this encounter Visit Diagnoses Not on filedocumented in this encounter Additional Health Concerns Infection Onset Date Last Indicated Resolved Time Rule Out COVID-19 12/26/2023 12/26/2023 12/26/2023 9:50 AM CDT Rule Out COVID-19 04/09/2024 04/09/2024 04/10/2024 6:48 PM CDT Assessment Noted Time PHQ-9 Depression Total Score: 5 03/10/20 23 6:49 AM CDT documented as of this encounter Care Teams Form Tamping Machine Operator Relationship Specialty Start Date End Date Marija Edgar APRN SHAREPOINT APPLICATION ARCHITECT PCP - General Nurse Practitioner 04/30/20 04/14/23 Esha Grimm PA-C [address] [place] [address] PCP - General Family Medicine 05/04/23 Marija Edgar APRN SHAREPOINT APPLICATION ARCHITECT Assigned PCP 06/08/20 04/29/23 Keisha Dotson MD [address] [place], [place] 020985 Assigned Neuroscience Provider 06/04/20 04/01/23 Diana Desir, [facility] [address] [place] [address] Pharmacist Pharmacist 04/17/21 Rain Galaviz PA-C [address] [place] [address] [address] [place] [address] Physician Clerk General Office Dermatology 04/28/21 Tavia Wyatt MD [address] [place] [address] [address] [place] [address] Dermatology 07/14/21 Erica Farrell APRN SHAREPOINT APPLICATION ARCHITECT [address] [place] [address] Nurse Practitioner Cardiovascular Disease 09/09/21 Rich Barrett MD [address] [place] [address] 374885 Physician Ophthalmology 01/21/22 Neil Kent MD [address] [place] [address] 378325 Dermatology 02/24/22 Diana Desir, [facility] [address] [place] [address] Assigned MTM Pharmacist 04/07/22 Livan Sharif MD [address] [facility]00 [place] [address] Cardiovascular Disease 05/14/22 Catherine Cm MD [address] [facility]00 [place] [address] Cardiovascular Disease 07/21/22 Valery Veronica, PA-C [address] [place] [address] 371285 Physician Clerk General Office Dermatology 07/21/22 Brea Quinn APRN SHAREPOINT APPLICATION ARCHITECT [address] [place] [address] Nurse Practitioner Dermatology 09/21/22 Brea Quinn APRN SHAREPOINT APPLICATION ARCHITECT [address] [place] [address] Assigned Surgical Provider 10/09/22 05/01/24 [place] [address] [place] [address] Assigned Musculoskeletal Provider 10/09/22 05/01/24 Catherine Cm MD [address] [facility] [address] [place] [address] Assigned Heart and Vascular Provider 11/13/22 05/27/23 Sydnie Martinez RN Personal Advocate & Liaison (PAL) Family Medicine 03/28/23 07/31/23 Alfonso Renteria MD 5775 [facility] [address] 200 [place] [address] Assigned Neuroscience Provider 04/02/23 Cheng Todd PA-C [address] [place] [address] Assigned PCP 04/30/23 07/15/23 Radha Lomeli APRN SHAREPOINT APPLICATION ARCHITECT [address] [facility] [address] [place] [address] Assigned Heart and Vascular Provider 05/28/23 Jelena David OD [address] [place] [address] Ophthalmology 06/15/23 Pao Joseph, VJ Personal Advocate & Liaison (PAL) Nurse 08/01/23 11/07/23 Esha Grimm PA-C [address] [place] [address] Assigned PCP 07/16/23 Valery Veronica PA-C [address] [place] [address] Physician Clerk General Office Dermatology 09/19/23 Rey Tay MD [address] [place] [address] 428225 Gastroenterology 09/20/23 Rocky Zepeda DO [address] [place] [address] 833165 Physician Gastroenterology 09/20/23 Philip Dumont MD 516 [place] [address] Physician Ophthalmology 09/22/23 Meredith Carrera PA-C [address] [place] [address] Assigned Gastroenterology Provider 11/01/23 Neil Kent MD [address] 246350 MD Dermatology 11/02/23 [place] [address] 920527 Neurological Surgery 12/26/23 Audrey Waite PA-C [address] [place] [address] 842185 Physician Clerk General Office Dermatology 02/28/24 Valery Veronica PA-C [id number] [address] [place] [address] Physician Clerk General Office Dermatology 04/10/24 Herminia Hatch MD 1875 [place] [address] Assigned Rheumatology Provider 07/02/24 documented as of this encounter
--- OUTSIDE RECORDS SUMMARY | 2024-08-28 18:23 | XMS_ITS | Encounter Summary ---
Author Organization [facility] Address [address] [place] [address] Care Team Providers Care District Supervisor Name Role Phone Lita Oseguera Unavailable Unavailable Marija Edgar APRN SHOP FOREMAN Primary Care Provider + Marija Edgar APRN SHOP FOREMAN Unavailable [phone] Keisha Dotson MD Unavailable [phone] Diana Desir [facility] Unavailable [phone] Rain Galaviz PA-C Unavailable Tavia Wyatt MD Unavailable Erica Farrell APRN SHOP FOREMAN Unavailable Rich Barrett MD Unavailable [phone] Neil Kent MD Unavailable Diana Desir [facility] Unavailable Livan Sharif MD Unavailable Catherine Cm MD Unavailable + Valery Veronica PA-C Unavailable [phone] Brea Quinn PROBATE JUDGE SHOP FOREMAN Unavailable Brea Quinn PROBATE JUDGE SHOP FOREMAN Unavailable Jose Francisco Johnson MD Unavailable Catherine Cm MD Unavailable + Sydnie Martinez RN Unavailable Unavailable Alfonso Renteria MD Unavailable [phone] Esha Grimm PA-C Primary Care Provider [phone] Cheng Todd PA-C Unavailable Radha Lomeli APRN SHOP FOREMAN Unavailable Jelena David OD Unavailable [phone] Pao Joseph RN Unavailable Unavailable Esha Grimm PA-C Unavailable [phone] Valery Veronica PA-C Unavailable Rey Tay MD Unavailable Rocky Zepeda DO Unavailable Philip Dumont MD Unavailable Meredith Carrera PA-C Unavailable Neil Kent MD Unavailable Juan Pablo Emmanuel MD Unavailable Audrey Waite PA-C Unavailable [phone] JeremíasValery damon PA-C Unavailable Herminia Hatch MD Unavailable Encounter Details Date Type Department Care Team (Late st Contact Info) Description 01/10/2023 [facility] Medical Advice [facility] [address] [place] [address] Lauren Claudio PA-C [address] [place] [address] Social History Tobacco Use Types [...] How often do you attend quaker or sikhism serv ices? Never 09/22/2021 Do [...] Answer Date Recorded PHQ-2 Score 1 10/11/2022 [facility] - Occupational Stress [...] in a correction (including now)? 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 Gender Identity Female 03/02/2021 5:45 PM [...] - 02/03/2023 11:52 AM CDT Incoming call Cold Press Operator: Rosalva [place] [facility] referral following up on [facility] information that is needed to be faxed at [phone] Erica David MA documented in this encounter Plan of Treatment Upcoming Encounters Date Type Department Care Team (Late st Contact Info) Description 10/23/2024 9:30 AM CDT Office Visit [facility] Neurology Clinics - [address], [address] [place] [address] [place] [address] [place] [address] Johnny Penn MD [address] [facility] [place] [address] documented as of [...] as of this encounter Care Teams District Supervisor Relationship Specialty Start Date End Date Marija Edgar APRN SHOP FOREMAN PCP - General Nurse Practitioner 04/30/20 04/14/23 Esha Grimm PA-C [address] [place] [phone] PCP - General Family Medicine 05/04/23 Lita Oseguera Personal Advocate & Liaison (PAL) 02/28/20 03/27/23 Marija Edgar APRN SHOP FOREMAN Assigned PCP 06/08/20 04/29/23 Keisha Dotson MD [address] [place], [place] 508485 Assigned Neuroscience Provider 06/04/20 04/01/23 Diana Desir [facility] 3033 [place], [place] 112026 Pharmacist Pharmacist 04/17/21 Rain Galaviz PA-C [address] [place] [address] [place] [address] Physician Laborer Concrete Paving Dermatology 04/28/21 Tavia Wyatt MD [address] [place] [address] [address] [place] [address] Dermatology 07/14/21 Erica Farrell APRN SHOP FOREMAN [address] [place], [place] 373785 Nurse Practitioner Cardiovascular Disease 09/09/21 Rich Barrett MD [address] [place] [address] 769625 Physician Ophthalmology 01/21/22 Neil Kent MD [address] [place] [address] 256545 Dermatology 02/24/22 [facility] [address] [place] [address] 390366 Assigned [place] Pharmacist 04/07/22 Livan Sharif MD [address] [place] [address] Cardiovascular Disease 05/14/22 Catherine Cm MD [address] [place] [address] [place] 822925 Cardiovascular Disease 07/21/22 Valery Veronica, PA-C [address] [place] [address] 516875 Physician Laborer Concrete Paving Dermatology 07/21/22 Brea Quinn APRN SHOP FOREMAN 500 [place] [address] Nurse Practitioner Dermatology 09/21/22 Brea Quinn APRN SHOP FOREMAN 6401 [facility] [place] [address] Assigned Surgical Provider 10/09/22 05/01/24 [place] [address] [place] [facility] 300 [place] [address] Assigned Musculoskeletal Provider 10/09/22 05/01/24 Catherine Cm MD [address] [facility] [address] [place] [address] Assigned Heart and Vascular Provider 11/13/22 05/27/23 Sydnie Martinez RN Personal Advocate & Liaison (PAL) Family Medicine 03/28/23 07/31/23 Alfonso Renteria MD [address] [facility] 200 [place], [place] 208416 Assigned Neuroscience Provider 04/02/23 Cheng Todd PA-C [address] [place] [address] [id number] Assigned PCP 04/30/23 07/15/23 Radha Lomeli APRN SHOP FOREMAN 6[address] [facility] [address] [place] 877455 Assigned Heart and Vascular Provider 05/28/23 Jelena David Radha, OD 3305 [facility] [place] [place] [address] MD Ophthalmology 06/15/23 Pao Joseph, RN Personal Advocate & Liaison (PAL) Nurse 08/01/23 11/07/23 Esha Grimm PA-C [address] [place] [address]46[address] Assigned PCP 07/16/23 Valery Veronica PA-C [address] [place] [address] 390875 Physician Laborer Concrete Paving Dermatology 09/19/23 Rey Tay MD [address] [place] [address] MD Gastroenterology 09/20/23 Rocky Zepeda DO [address] [place] [address] 181215 Physician Gastroenterology 09/20/23 Philip Dumont MD [address] [place] [address] 174835 Physician Ophthalmology 09/22/23 Meredith Carrera PA-C [address] [place] [address] 828945 Assigned Gastroenterology Provider 11/01/23 Neil Kent MD [address] [address] Dermatology 11/02/23 [place] [address] [place] [address] [address] Neurological Surgery 12/26/23 Audrey Waite PA-C 500 [place] [address] Physician Laborer Concrete Paving Dermatology 02/28/24 Valery Veronica PA-C [address] [place] [address] Physician Laborer Concrete Paving Dermatology 04/10/24 Herminia Hatch MD [facility]5 [place] [address] Assigned Rheumatology Provider 07/02/24 documented as of this encounter
--- OUTSIDE RECORDS SUMMARY | 2024-08-28 18:23 | XMS_ITS | Encounter Summary ---
Author Organization [facility] Address [address] [place] [address] Care Team Providers Care Print Shop Stenographer Name Role Phone Diana Desir [facility] Unavailable Rain Galaviz PA-C Unavailable [phone] Tavia Wyatt MD Unavailable Erica Farrell APRN PAPER RECLAIMING MACHINE OPERATOR Unavailable Rich Barrett MD Unavailable [phone] Neil Kent MD Unavailable Diana Desir [facility] Unavailable Livan Sharif MD Unavailable Catherine Cm MD Unavailable + Valery Veronica PA-C Unavailable Brea Quinn OCEAN LIFEGUARD PAPER RECLAIMING MACHINE OPERATOR Unavailable Brea Quinn OCEAN LIFEGUARD PAPER RECLAIMING MACHINE OPERATOR Unavailable Jose Francisco Johnson MD Unavailable Alfonso Renteria MD Unavailable [phone] Esha Grimm PA-C Primary Care Provider Lomeli, Radha E OCEAN LIFEGUARD PAPER RECLAIMING MACHINE OPERATOR Unavailable [phone] Jelena David OD Unavailable Esha Grimm PA-C Unavailable [phone] Valery Veronica PA-C Unavailable Rey Tay MD Unavailable Rocky Zepeda DO Unavailable Philip Dumont MD Unavailable Meredith Carrera PA-C Unavailable [phone] Neil Kent MD Unavailable Juan Pablo Emmanuel MD Unavailable [phone] Audrey Waite PA-C Unavailable Valery Veronica PA-C Unavailable [phone] Herminia Hatch MD Unavailable Encounter Details Date Type Department Care Team (Late st Contact Info) Description 03/06/2024 MyC Medical Advice [facility] Spine and Neurosurgery [address] [place] [address] Ebony Cid APRN PAPER RECLAIMING MACHINE OPERATOR [address] [place] [address] Social History Tobacco Use Types [...] you attend [facility] or faith services? 1 to 4 [...] Answer Date Recorded PHQ-2 Score 1 02/07/2024 [facility] [...] at this level? 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 Gender Identity Female 03/02/2021 5:45 PM CDT Sexual Orientation Straight 02/28/2020 12 :51 AM CDT documented as of this encounter Plan of Treatment Upcoming Encounters Date Type Department Care Team (Late st Contact Info) Description 10/23/2024 9:30 AM CDT Office Visit [facility] Neurology Clinics [address], [address] [place] [address] [place] [address] [place] [address] Johnny Penn MD [address] [place] [address] documented as of this encounter Visit Diagnoses Not on filedocumented in this encounter Additional Health Concerns Infection Onset Date Last Indicated Resolved Time Rule Out COVID-19 04/09/2024 04/09/2024 04/10/2024 6:48 PM CDT Assessment Noted Time PHQ-9 Depression Total Score: 3 02/07/20 24 9:33 AM CDT documented as of this encounter Care Teams Print Shop Stenographer Relationship Specialty Start Date End Date Esha Grimm PA-C [address] [place] [address] PCP - General Family Medicine 05/04/23 Diana Desir, [facility] [address] [place], [place] 307346 Pharmacist Pharmacist 04/17/21 Rain Galaviz PA-C [address] [place] [address] [address] [place] [address] Physician Meat Curer Dermatology 04/28/21 Tavia Wyatt MD [address] [place] [address] [address] [place] [address] [phone] Dermatology 07/14/21 Erica Farrell APRN PAPER RECLAIMING MACHINE OPERATOR 6405 [facility] [address] [place], [place] 226175 Nurse Practitioner Cardiovascular Disease 09/09/21 Rich Barrett MD [address] [phone] Physician Ophthalmology 01/21/22 Neil Kent MD 500 [place], [place] 969785 Dermatology 02/24/22 Diana Desir, [facility] 30[address] [place], [place] 523616 Assigned MTM Pharmacist 04/07/22 Livan Sharif MD [address], [facility] [address] [place], [place] 206545 Cardiovascular Disease 05/14/22 Catherine Cm MD [address] [facility] [address] [place], [place] 619795 Cardiovascular Disease 07/21/22 Valery Veronica, PA-C [address] [place] [address] 439175 Physician Meat Curer Dermatology 07/21/22 Brea Quinn APRN PAPER RECLAIMING MACHINE OPERATOR 500 [place], [place] 516525 Nurse Practitioner Dermatology 09/21/22 Brea Quinn APRN PAPER RECLAIMING MACHINE OPERATOR [address] [place] [address] Assigned Surgical Provider 10/09/22 05/01/24 [place] [address] [facility] 300 [place], [place] 792717 Assigned Musculoskeletal Provider 10/09/22 05/01/24 Alfonso Renteria MD 5775 [facility] 200 [place], [place] 904976 Assigned Neuroscience Provider 04/02/23 Armani Radha Stovall OCEAN LIFEGUARD PAPER RECLAIMING MACHINE OPERATOR [address] [place], [place] 276185 Assigned Heart and Vascular Provider 05/28/23 Jelena David OD [address] [place] [address] MD Ophthalmology 06/15/23 Esha Grimm PA-C [address] [place] [address] Assigned PCP 07/16/23 Valery Veronica PA-C [address] [place] [address] 313675 Physician Meat Curer Dermatology 09/19/23 Rey Tay MD [address] [place] [address] 295825 Gastroenterology 09/20/23 Rocky Zepeda DO [address] [place] [address] 878535 Physician Gastroenterology 09/20/23 Philip Dumont MD [address] [place] [address] Physician Ophthalmology 09/22/23 Meredith Carrera PA-C [address] [place] [address] Assigned Gastroenterology Provider 11/01/23 Neil Kent MD [address] [address] Dermatology 11/02/23 [place] [address] [place] [address] [address] Neurological Surgery 12/26/23 Audrey Waite PAUcheC 500 [place] [address] Physician Meat Curer Dermatology 02/28/24 Valery Veronica PAUcheC [address]41 [place], [place] [address] Physician Meat Curer Dermatology 04/10/24 Herminia Hatch MD [facility]5 [place], [place] 27738125 Assigned Rheumatology Provider 07/02/24 documented as of this encounter
--- OUTSIDE RECORDS SUMMARY | 2024-08-28 18:23 | XMS_ITS | Encounter Summary ---
Author Organization [facility] Address [address] [place] [address] Care Team Providers Care Escalator Constructor Name Role Phone Diana Desir [facility] Unavailable [phone] Rain Galaviz PA-C Unavailable Tavia Wyatt MD Unavailable Erica Farrell APRN [employer]BER OF [employer]ER[employer] DIVISION MANAGER Unavailable Rich Barrett MD Unavailable [phone] Neil Kent MD Unavailable Diana Desir [facility] Unavailable [phone] Livan Sharif MD Unavailable Catherine Cm MD Unavailable + Valery Veronica PA-C Unavailable [phone] Brea Quinn LEAD MECHANICAL ENGINEER [employer] DIVISION MANAGER Unavailable Brea Quinn LEAD MECHANICAL ENGINEER [employer]BER [employer] DIVISION MANAGER Unavailable [phone] Jose Francisco Johnson MD Unavailable Alfonso Renteria MD Unavailable [phone] Esha Grimm PA-C Primary Care Provider Radha Lomeli APRN [employer] DIVISION MANAGER Unavailable Jelena David OD Unavailable Esha Grimm PA-C Unavailable [phone] Valery Veronica PA-C Unavailable [phone] Rey Tay MD Unavailable Rocky Zepeda DO Unavailable Philip Dumont MD Unavailable [phone] Meredith Carrera PA-C Unavailable [phone] Neil [place] MD Unavailable Juan Pablo Emmanuel MD Unavailable [phone] Audrey Waite PA-C Unavailable [phone] Valery Veronica PA-C Unavailable Herminia Hatch MD Unavailable Encounter Details Date Type Department Care Team (Late st Contact Info) Description 03/19/2024 [facility] Advice [facility] [address] [place] [address] [place] Social History Tobacco [...] exercise at this level? 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 Neurology [address], [address] [place] [address] [place] [address] [place] 090997 Johnny Penn MD 8889 [facility] [place] [id number] documented as of this encounter Visit Diagnoses Not on filedocumented in this encounter Additional Health Concerns Infection Onset Date Last Indicated Resolved Time Rule Out COVID-19 04/09/2024 04/09/2024 04/10/2024 6:48 PM CDT Assessment Noted Time PHQ-9 Depression Total Score: 3 02/07/20 24 9:33 AM CDT documented as of this encounter Care Teams Escalator Constructor Relationship Specialty Start Date End Date Esha Grimm PA-C [address] [place] [address] PCP - General Family Medicine 05/04/23 Diana Desir, [facility] [address] [place] [address] Pharmacist Pharmacist 04/17/21 Rain Galaviz PA-C [address] [place] [address] [address] [place] [address] Physician Spoon Maker Dermatology 04/28/21 Tavia Wyatt MD [address] [place] [address] [address] [place] [address] Dermatology 07/14/21 Erica Farrell APRN CH[employer]BER OF [employer] DIVISION MANAGER 6[address] [facility] [address] [place] [address] Nurse Practitioner Cardiovascular Disease 09/09/21 Rich Barrett MD [address] [place] [address] Physician Ophthalmology 01/21/22 Neil [place] MD [address] [place] [address] Dermatology 02/24/22 Diana Desir, [facility] [address] [place] [address] Assigned MTM Pharmacist 04/07/22 Livan Sharif MD [address] [facility] [address] [place] [address] Cardiovascular Disease 05/14/22 Catherine Cm MD [address] [facility] [place] [address] Cardiovascular Disease 07/21/22 Valery Veronica, PA-C [address] [place] [address] Physician Spoon Maker Dermatology 07/21/22 Brea Quinn APRN CH[employer]BER [employer] COMMER[employer] DIVISION MANAGER [address] [place] [address] Nurse Practitioner Dermatology 09/21/22 Brea Quinn APRN CHAMBER OF COMMERCE DIVISION MANAGER [address] [place] [address] Assigned Surgical Provider 10/09/22 05/01/24 [place] [address] [place] [address] [address] Assigned Musculoskeletal Provider 10/09/22 05/01/24 Alfonso Renteria MD [address] [address] Assigned Neuroscience Provider 04/02/23 Radha Lomeli APRN [employer]BER [employer] COMMERCE DIVISION MANAGER [address] [place] [address] Assigned Heart and Vascular Provider 05/28/23 [place] [address] [place] [address] MD Ophthalmology 06/15/23 Esha Grimm PA-C [address] [place] [address] Assigned PCP 07/16/23 Valery Veronica PA-C [address] [place] [address] 962855 Physician Spoon Maker Dermatology 09/19/23 Rey Tay MD [address] [place] [address] 542475 MD Gastroenterology 09/20/23 Rocky Zepeda DO [address] [place] [address] 978135 Physician Gastroenterology 09/20/23 Philip Dumont MD [address] [place] [address] 492905 Physician Ophthalmology 09/22/23 Meredith Carrera PA-C [address] [place] [address] 784215 Assigned Gastroenterology Provider 11/01/23 Neil Kent MD [address] [phone] Dermatology 11/02/23 [place] [address] [place] [address] [address] Neurological Surgery 12/26/23 Audrey Waite PA-C 500 [place] [address] Physician Spoon Maker Dermatology 02/28/24 Valery Veronica PA-C [address] [place] [address] Physician Spoon Maker Dermatology 04/10/24 Hermniia Hatch MD [facility] [place] [address] Assigned Rheumatology Provider 07/02/24 documented as of this encounter
--- OUTSIDE RECORDS SUMMARY | 2024-08-28 18:23 | XMS_ITS | Encounter Summary ---
Author Organization [facility] Address [address] [place] [address] Care Team Providers Care Otr Driver Name Role Phone Diana Desir [facility] Unavailable Rain Galaviz PA-C Unavailable Tavia Wyatt MD Unavailable Erica Farrell APRN OUTSIDE REPAIRER SPECIAL Unavailable Rich Barrett MD Unavailable [phone] Neil [place] MD Unavailable Diana Desir [facility] Unavailable Livan Sharif MD Unavailable Catherine Cm MD Unavailable + Valery Veronica PA-C Unavailable [phone] Brea Quinn MARKETING DEVELOPER OUTSIDE REPAIRER SPECIAL Unavailable Brea Quinn MARKETING DEVELOPER OUTSIDE REPAIRER SPECIAL Unavailable Jose Francisco Johnson MD Unavailable Alfonso Renteria MD Unavailable [phone] Esha Grimm PA-C Primary Care Provider Lomeli, Radha E MARKETING DEVELOPER OUTSIDE REPAIRER SPECIAL Unavailable [phone] Jelena David OD Unavailable Esha Grimm PA-C Unavailable [phone] Valery Veronica PA-C Unavailable [phone] Rey Tay MD Unavailable Rocky Zepeda DO Unavailable Philip Dumont MD Unavailable Meredith Carrera PA-C Unavailable Neil Kent MD Unavailable Juan Pablo Emmanuel MD Unavailable Audrey Waite PA-C Unavailable [phone] Valery Veronica PA-C Unavailable [phone] Herminia Hatch MD Unavailable Reason for Visit * Reason Onset Date Comments Call Back 12/21/2023 Schedule appt to brandy Encounter Details Date Type Department Care Team (Late st Contact Info) Description 12/21/2023 [facility] Heart [facility] [address] [facility] [address] [place] [address] Livan Sharif MD 6400 [facility] [address] [place] [address] Call Back (Schedule appt tomorrow [...] 0 10/25/2023 [facility] - Occupational Stress Questionnaire [...] exercise at this level? 30 min 03/10/2023 Cardington Depression Scale Answer Date Recorded Cardington Depression Score 5 01/14/2021 Last EPDS Self [...] CDT Legal Sex Female 4:13 AM ASSISTANT OPERATIONS MANAGER Gender Identity Female 03/02/2021 5:45 PM [...] on wait list for . Routing to ocean transportation intermedi[employer]. Carley ZABALA [facility] * Telephone Encounter - Sandra Whiting - 12/21/2023 12:34 PM CDT [facility] Call Center Phone [...] 9:30 AM CDT Office Visit [facility] Neurology Clinics - [address], [address] [place] [address] [place] [address] [facility] [place] [address] Johnny Penn MD [address] [facility] [place] [address] documented as of this encounter Visit Diagnoses Not on filedocumented in this encounter Additional Health Concerns Infection Onset Date Last Indicated Resolved Time Rule Out COVID-19 12/26/2023 12/26/2023 12/26/2023 9:50 AM CDT Rule Out COVID-19 04/09/2024 04/09/2024 04/10/2024 6:48 PM CDT Assessment Noted Time PHQ-9 Depression Total Score: 4 06/20/20 23 8:40 AM ASSISTANT OPERATIONS MANAGER documented as of this encounter Care Teams Otr Driver Relationship Specialty Start Date End Date Esha Grimm PA-C [address] [place] [address] PCP - General Family Medicine 05/04/23 Diana Desir, [facility] [address] [place], [place] 463626 Pharmacist Pharmacist 04/17/21 Rain Galaviz PA-C [address] [place] [address] [address] [place] [address] Physician Behavior Interventionist Dermatology 04/28/21 Tavia Wyatt MD [address] [place] [address] [address] [facility] [place] [address] Dermatology 07/14/21 Erica Farrell APRN OUTSIDE REPAIRER SPECIAL [address] [facility] [address] [place] [address] Nurse Practitioner Cardiovascular Disease 09/09/21 Rich Barrett MD [address] [address] Physician Ophthalmology 01/21/22 Neil [place] MD 500 [place], [place] [id number] Dermatology 02/24/22 Diana Desir, [facility] 3033 [place], [place] 714616 Assigned MTM Pharmacist 04/07/22 Livan Sharif MD 6405 [facility] [address] [place], [place] 361435 Cardiovascular Disease 05/14/22 Catherine Cm MD [address] [place] 3422900 [place], [place] 637195 Cardiovascular Disease 07/21/22 Valery Veronica, PA-C [address] [place] [address] 674205 Physician Behavior Interventionist Dermatology 07/21/22 Brea Quinn APRN OUTSIDE REPAIRER SPECIAL 500 [place], [place] 706315 Nurse Practitioner Dermatology 09/21/22 Brea Quinn APRN OUTSIDE REPAIRER SPECIAL 6401 [place], [place] 498822 Assigned Surgical Provider 10/09/22 05/01/24 [place] [address] [facility] [address] [place], [place] 919937 Assigned Musculoskeletal Provider 10/09/22 05/01/24 Alfonso Renteria MD [address] [facility] 200 [place], [place] 427736 Assigned Neuroscience Provider 04/02/23 Armani Radha StovallARLENE OUTSIDE REPAIRER SPECIAL [address] [place], [place] 149945 Assigned Heart and Vascular Provider 05/28/23 Jelena David OD [address] [facility] [address] [place] [id number] MD Ophthalmology 06/15/23 Esha Grimm PA-C [address] [place] [address] Assigned PCP 07/16/23 Valery Veronica PA-C [address] [place] [address] 499055 Physician Behavior Interventionist Dermatology 09/19/23 Rey Tay MD [address] [place] [address] 668345 Gastroenterology 09/20/23 Rocky Zepeda DO [address] [place] [address] 030385 Physician Gastroenterology 09/20/23 Philip Dumont MD [address] [place] [address] 326425 Physician Ophthalmology 09/22/23 Meredith Carrera PA-C 9 [place], [place] 671855 Assigned Gastroenterology Provider 11/01/23 Neil [place] MD [address] [address] Dermatology 11/02/23 [place] [address] [place] [address] Neurological Surgery 12/26/23 Audrey Waite PA-C 500 [place] [address] Physician Behavior Interventionist Dermatology 02/28/24 Valery Veronica PA-C 107661 [place] [address] Physician Behavior Interventionist Dermatology 04/10/24 Herminia Hatch MD [facility]5 [place], [place] 8[address] Assigned Rheumatology Provider 07/02/24 documented as of this encounter
--- OUTSIDE RECORDS SUMMARY | 2024-08-28 18:23 | XMS_ITS | Encounter Summary ---
Author Organization [facility] Address [address] [place] [address] Care Team Providers Care Retail Advisor Name Role Phone Diana Desir [facility] Unavailable Rain Galaviz PA-C Unavailable Tavia Wyatt MD Unavailable Erica Farrell APRN WEB MANAGER Unavailable Rich Barrett MD Unavailable [phone] Neil [place] MD Unavailable Diana Desir [facility] Unavailable Livan Sharif MD Unavailable Catherine Cm MD Unavailable + Valery Veronica PA-C Unavailable Brea Quinn BRICKMASON HELPER WEB MANAGER Unavailable Brea Quinn BRICKMASON HELPER WEB MANAGER Unavailable Jose Francisco Johnson MD Unavailable Alfonso Renteria MD Unavailable [phone] Esha Grimm PA-C Primary Care Provider Radha Lomeli APRN WEB MANAGER Unavailable Jelena David OD Unavailable [phone] Esha Grimm PA-C Unavailable [phone] Valery Veronica PA-C Unavailable [phone] Rey Tay MD Unavailable Rocky Zepeda DO Unavailable Philip Dumont MD Unavailable [phone] Meredith Carrera PA-C Unavailable [phone] Neil Ketn MD Unavailable Juan Pablo Emmanuel MD Unavailable [phone] Audrey Waiet PA-C Unavailable [phone] Valery Veronica PA-C Unavailable [phone] Herminia Hatch MD Unavailable Encounter Details Date Type Department Care Team (Late st Contact Info) Description 02/28/2024 [facility] Medical Advice [facility] Gastroenterology Clinic [address] [place] [address] Rain Burnette, RN Social History [...] 1 02/07/2024 [facility] of Occupat ional [...] exercise at this level? 30 min 03/10/2023 Ringling Depression Scale Answer Date Recorded Ringling Depression Score 5 01/14/2021 Last EPDS Self [...] PM CDT Legal Sex Female 4:13 AM PSYCHIATRIC AIDE INSTRUCTOR Gender Identity Female 03/02/2021 5:45 PM CDT Sexual Orientation Straight 02/28/2020 12 :51 AM CDT documented as of this encounter Plan of Treatment Upcoming Encounters Date Type Department Care Team (Late st Contact Info) Description 10/23/2024 9:30 AM CDT Office Visit [facility] Neurology [address], [address] [place] [address] [place] [address] [place] [address] 561347 Johnny Penn MD 0625 [facility] [place] [id number] documented as of this encounter Visit Diagnoses Not on filedocumented in this encounter Additional Health Concerns Infection Onset Date Last Indicated Resolved Time Rule Out COVID-19 04/09/2024 04/09/2024 04/10/2024 6:48 PM CDT Assessment Noted Time PHQ-9 Depression Total Score: 3 02/07/20 24 9:33 AM CDT documented as of this encounter Care Teams Retail Advisor Relationship Specialty Start Date End Date Esha Grimm PA-C [address] [place] [address] PCP - General Family Medicine 05/04/23 Diana Desir, [facility] [address] [place] [address] Pharmacist Pharmacist 04/17/21 Rain Galaviz PA-C [address] [place] [address] [address] [place] [address] Physician Flat Drier Dermatology 04/28/21 Tavia Wyatt MD [address] [place] [address] [address] [place] [address] Dermatology 07/14/21 Erica Farrell APRN WEB MANAGER 6405 [facility] [address] [place] [address] Nurse Practitioner Cardiovascular Disease 09/09/21 Rich Barrett MD [address] [place] [address] Physician Ophthalmology 01/21/22 Neil Kent MD [address] [place] [address] Dermatology 02/24/22 Diana Desir, [facility] [address] [place] [address] Assigned MTM Pharmacist 04/07/22 Livan Sharif MD [address] [facility] [address] [place] [address] Cardiovascular Disease 05/14/22 Catherine Cm MD [address] [facility] [place] [address] Cardiovascular Disease 07/21/22 Valery Veronica, PA-C [address] [place] [address] Physician Flat Drier Dermatology 07/21/22 Brea Quinn APRN WEB MANAGER [address] [place] [address] Nurse Practitioner Dermatology 09/21/22 Brea Quinn APRN WEB MANAGER [address] [place] [address] Assigned Surgical Provider 10/09/22 05/01/24 [place] [address] [place] [address] [address] Assigned Musculoskeletal Provider 10/09/22 05/01/24 Alfonso Renteria MD [address] [address] Assigned Neuroscience Provider 04/02/23 Radha Lomeli APRN WEB MANAGER [address] [place] [address] Assigned Heart and Vascular Provider 05/28/23 Jelena David OD [address] [place] [address] MD Ophthalmology 06/15/23 Esha Grimm PA-C [address] [place] [address] Assigned PCP 07/16/23 Valery Veronica PA-C [address] [place] [address] 144645 Physician Flat Drier Dermatology 09/19/23 Rey Tay MD [address] [place] [address] 497835 MD Gastroenterology 09/20/23 Rocky Zepeda DO [address] [place] [address] 500655 Physician Gastroenterology 09/20/23 Philip Dumont MD [address] [place] [address] 384695 Physician Ophthalmology 09/22/23 Meredith Carrera PA-C [address] [place] [address] 150725 Assigned Gastroenterology Provider 11/01/23 Neil [place] MD [address] 755180 Dermatology 11/02/23 [place] [address] [place] [address] [address] Neurological Surgery 12/26/23 Audrey Waite PA-C 500 [place] [address] Physician Flat Drier Dermatology 02/28/24 Valery Veronica PA-C [address] [place] [address] Physician Flat Drier Dermatology 04/10/24 Herminia Hatch MD [facility]5 [place] [address] Assigned Rheumatology Provider 07/02/24 documented as of this encounter
--- OUTSIDE RECORDS SUMMARY | 2024-08-28 18:23 | XMS_ITS | Encounter Summary ---
Author Organization [place] Address [address] [place] [address] Care Team Providers Care Meal Cooker Name Role Phone Diana Desir [facility] Unavailable Rain Galaviz PA-C Unavailable Tavia Wyatt MD Unavailable Erica Farrell APRN MULTI SKILLED OPERATOR Unavailable Rich Barrett MD Unavailable [phone] Neil Kent MD Unavailable Diana Desir [facility] Unavailable [phone] Livan Sharif MD Unavailable Catherine Cm MD Unavailable + Valery Veronica PA-C Unavailable Brea Quinn AUTOMATIC BUFFING WHEEL FORMER MULTI SKILLED OPERATOR Unavailable Brea Quinn AUTOMATIC BUFFING WHEEL FORMER MULTI SKILLED OPERATOR Unavailable Jose Francisco Johnson MD Unavailable Alfonso Renteria MD Unavailable [phone] Esha Grimm PA-C Primary Care Provider Lomeli, Radha E AUTOMATIC BUFFING WHEEL FORMER MULTI SKILLED OPERATOR Unavailable [phone] Jelena David OD Unavailable Ehsa Grimm PA-C Unavailable [phone] Valery Veronica PA-C Unavailable [phone] Rey Tay MD Unavailable Rocky Zepeda DO Unavailable Philip Dumont MD Unavailable [phone] Meredith Carrera PA-C Unavailable [phone] Neil Kent MD Unavailable Juan Pablo Emmanuel MD Unavailable [phone] Audrey Waite PA-C Unavailable [phone] Valery Veronica PA-C Unavailable [phone] Herminia Hatch MD Unavailable Encounter Details Date Type Department Care Team (Late st Contact Info) Description 11/21/2023 [facility] [place] [facility] [address] [place] [address] Sofia Alcantar Social History Tobacco [...] Answer Date Recorded PHQ-2 Score 0 10/25/2023 [place] [facility] Health - Occupational Stress Questionnaire Answer Date [...] exercise at this level? 30 min 03/10/2023 [place] Depression Scale Answer Date Recorded [place] Depression Score 5 01/14/2021 Last EPDS Self [...] PM CDT Legal Sex Female 4:13 AM LEAN SENSEI Gender Identity Female 03/02/2021 5:45 PM CDT Sexual Orientation Straight 02/28/2020 12 :51 AM CDT documented as of this encounter Plan of Treatment Upcoming Encounters Date Type Department Care Team (Late st Contact Info) Description 10/23/2024 9:30 AM CDT Office Visit [facility] Neurology [address], [address] [place] [address] [place] [address] [place] [address] Johnny Penn MD 6962 [facility] [place] [address] documented as of this encounter Visit Diagnoses Not on filedocumented in this encounter Additional Health Concerns Infection Onset Date Last Indicated Resolved Time Rule Out COVID-19 12/26/2023 12/26/2023 12/26/2023 9:50 AM CDT Rule Out COVID-19 04/09/2024 04/09/2024 04/10/2024 6:48 PM CDT Assessment Noted Time PHQ-9 Depression Total Score: 4 06/20/20 23 8:40 AM LEAN SENSEI documented as of this encounter Care Teams Meal Cooker Relationship Specialty Start Date End Date Esha Grimm PA-C [address] [place] [address] PCP - General Family Medicine 05/04/23 Diana Desir, [facility] [address] [place] [address] Pharmacist Pharmacist 04/17/21 Rain Galaviz PA-C [address] [place] [address] [address] [place] [address] Physician Exit Booth Agent Dermatology 04/28/21 Tavia Wyatt MD [address] [place] [address] [address] [place] [address] Dermatology 07/14/21 Erica Farrell APRN MULTI SKILLED OPERATOR 6405 [facility] [address] [place] [address] Nurse Practitioner Cardiovascular Disease 09/09/21 Rich Barrett MD 516 [facility] 9A [place], [place] 456825 Physician Ophthalmology 01/21/22 Neil Kent MD [address] [place] [address] 883155 Dermatology 02/24/22 Diana Desir, [facility] 3033 [place] [address] Assigned MTM Pharmacist 04/07/22 Livan Sharif MD [address], [facility] [address] [place] [address] Cardiovascular Disease 05/14/22 Catherine Cm MD [address] [facility] [address] [place], [place] [address] Cardiovascular Disease 07/21/22 Valery Veronica, PA-C 909 [place], [place] 857285 Physician Exit Booth Agent Dermatology 07/21/22 Brea Quinn APRN MULTI SKILLED OPERATOR 500 [place], [place] 382835 Nurse Practitioner Dermatology 09/21/22 Brea Quinn APRN MULTI SKILLED OPERATOR [address] [place] [address] Assigned Surgical Provider 10/09/22 05/01/24 [place] [address] [address] [facility] 300 [place] [address] Assigned Musculoskeletal Provider 10/09/22 05/01/24 Alfonso Renteria MD 5775 [facility] 200 [place] [address] Assigned Neuroscience Provider 04/02/23 Radha Lomeli APRN MULTI SKILLED OPERATOR [address] [place], [place] 095305 Assigned Heart and Vascular Provider 05/28/23 Tommy Davidistine SONJA Garcia [address] [place] [address] MD Ophthalmology 06/15/23 Esha Grimm PA-C [address] [place] [phone] Assigned PCP 07/16/23 Valery Veronica PA-C [address] [place] [address] 633905 Physician Exit Booth Agent Dermatology 09/19/23 Rey Tay MD [address] [place] [address] 359345 Gastroenterology 09/20/23 Rocky Zepeda DO [address] [place] [address] 606975 Physician Gastroenterology 09/20/23 Philip Dumont MD [address] [place] [address] 750205 Physician Ophthalmology 09/22/23 Meredith Carrera PA-C [address] [place] [address] 293735 Assigned Gastroenterology Provider 11/01/23 Neil Kent MD [address] 491170 Dermatology 11/02/23 [place] [address] [place] [address] [address] Neurological Surgery 12/26/23 Audrey Waite PA-C 500 [place] [address] Physician Exit Booth Agent Dermatology 02/28/24 Valery Veronica PA-C [address] [place] [address] Physician Exit Booth Agent Dermatology 04/10/24 Herminia Hatch MD [facility]5 [place], [place] 90[address] Assigned Rheumatology Provider 07/02/24 documented as of this encounter
--- OUTSIDE RECORDS SUMMARY | 2024-08-28 18:23 | XMS_ITS | Encounter Summary ---
Author Organization [place] Address [address] [place] [address] Care Team Providers Care Director Of Strategic Marketing Name Role Phone Lita Oseguera Unavailable Unavailable Marija Edgar APRN MOTOR VEHICLES INSPECTOR Primary Care Provider + Marija Edgar APRN MOTOR VEHICLES INSPECTOR Unavailable Mynor Broussard MD Unavailable [phone] Keisha Dotson MD Unavailable [phone] Galo Burrell MD Unavailable Unavailable Diana Desir [facility] Unavailable [phone] Rain Galaviz PA-C Unavailable Summer Lara MD Unavailable [phone] Tavia Wyatt MD Unavailable Johnny Murillo MD Unavailable Erica Farrell APRN MOTOR VEHICLES INSPECTOR Unavailable Teresita Bean [facility] Unavailable Tavia Wyatt MD Unavailable Diana Desir [facility] Unavailable Rich Barrett MD Unavailable [phone] Neil Kent MD Unavailable Roney Story DPM Unavailable Erica Farrell MARINE UNDERWRITER MOTOR VEHICLES INSPECTOR Unavailable Thang Diana Stanislav [facility] Unavailable Jelena David OD Unavailable Galo Burrell MD Unavailable Unavailable Livan Sharif MD Unavailable + Livan Sharif MD Unavailable + Catherine Cm MD Unavailable + Valery Veronica PA-C Unavailable [phone] Catherine Cm MD Unavailable + Johnny Murillo MD Unavailable [phone] Brea Quinn MARINE UNDERWRITER MOTOR VEHICLES INSPECTOR Unavailable [phone] Brea Quinn MARINE UNDERWRITER MOTOR VEHICLES INSPECTOR Unavailable [phone] Jose Francisco Johnson MD Unavailable Livan Sharif MD Unavailable + IsCatherine hobbs MD Unavailable + Sydnie Martinez RN Unavailable Unavailable Alfonso Renteria MD Unavailable Esha Grimm-C Primary Care Provider Cheng Todd PA-C Unavailable Radha Lomeli MARINE UNDERWRITER MOTOR VEHICLES INSPECTOR Unavailable [phone] Jelena David OD Unavailable Pao Joseph RN Unavailable Unavailable Esha Grimm-C Unavailable [phone] JeremíasValery damon PA-C Unavailable [phone] Rey Tay MD Unavailable Rocky Zepeda DO Unavailable Philip Duomnt MD Unavailable [phone] Meredith CarreraC Unavailable [phone] Neil Kent MD Unavailable Juan Pablo Emmanuel MD Unavailable Audrey WaiteC Unavailable [phone] Valery Veronica PA-C Unavailable [phone] Herminia Hatch MD Unavailable Encounter Details Date Type Department Care Team (Late st Contact Info) Description 09/02/2021 [facility] [address] [address] [facility] [address] [place] [address] Social History Tobacco Use Types Packs/Day Years [...] a long term (including now)? 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 No / Unsure 09/02/2021 12:26 PM HAND CLOTH EXAMINER documented as of this encounter Plan of Treatment Upcoming Encounters Date Type Department Care Team (Late st Contact Info) Description 10/23/2024 9:30 AM CDT Office Visit [facility] [place] [address] [place] [address], [address] [place] [address] [place] [address] [address] [place] [address] Johnny Penn MD [address] [place] [address] documented as of this encounter Visit Diagnoses Not on filedocumented in this encounter Additional Health Concerns Infection Onset Date Last Indicated Resolved Time Rule Out COVID-19 12/18/2021 12/18/2021 12/19/2021 11:34 AM CDT Rule Out COVID-19 02/24/2022 02/24/2022 02/25/2022 1:08 PM CDT Rule Out COVID-19 04/26/2022 04/26/2022 04/26/2022 6:47 AM CDT Rule Out COVID-19 05/17/2022 05/17/2022 05/17/2022 10:20 PM HAND CLOTH EXAMINER Rule Out COVID-19 06/09/2022 06/09/2022 06/09/2022 9:35 AM HAND CLOTH EXAMINER COVID-19 06/09/2022 06/09/2022 06/30/2022 11:4 1 PM HAND CLOTH EXAMINER Rule Out COVID-19 11/10/2022 11/10/2022 11/11/2022 12:17 PM CDT Rule Out COVID-19 03/07/2023 03/07/2023 03/07/2023 1:20 PM CDT Rule Out COVID-19 12/26/2023 12/26/2023 12/26/2023 9:50 AM CDT Rule Out COVID-19 04/09/2024 04/09/2024 04/10/2024 6:48 PM CDT Assessment Noted Time PHQ-9 Depression Total Score: 2 04/02/20 10:19 AM CDT documented as of this encounter Care Teams Director Of Strategic Marketing Relationship Specialty Start Date End Date Marija Edgar APRN CNP PCP - General Nurse Practitioner 04/30/20 04/14/23 Esha Grimm PA-C [address] [place] [address] PCP - General Family Medicine 05/04/23 Lita Oseguera Personal Advocate & Liaison (PAL) 02/28/20 03/27/23 Marija Edgar APRN MOTOR VEHICLES INSPECTOR Assigned PCP 06/08/20 04/29/23 Mynor Broussard MD 6363 [facility] 500 [place] [address]75 Assigned Surgical Provider 06/01/20 11/28/21 Keisha Dotson MD 909 [place], [place] 268475 Assigned Neuroscience Provider 06/04/20 04/01/23 Galo Burrell MD Assigned Heart and Vascular Provider 10/05/20 04/02/22 [facility] 3033 [place] [address] Pharmacist Pharmacist 04/17/21 Rain Galaviz PA-C [address] [facility] [address] [place] [address] Physician Supervisor Asbestos Textile Dermatology 04/28/21 Summer Lara MD [address] [place] [address] 993134 Assigned OBGYN Provider 05/31/21 2 Tavia Wyatt MD [address] [place] [address] 528874 Dermatology 07/14/21 Johnny Murillo MD [address] [place] [address] Assigned Musculoskeletal Provider 08/30/21 03/17/22 Erica Farrell APRN MOTOR VEHICLES INSPECTOR 6405 [facility] [address] [place] [address] Nurse Practitioner Cardiovascular Disease 09/09/21 Teresita Bean, [facility] [address] [place] [address] Pharmacist Pharmacist 09/24/21 09/29/21 Tavia Wyatt MD [address] [place] [address] Assigned Surgical Provider 11/29/21 05/07/22 [facility] 3033 [place] [address] Assigned MTM Pharmacist 01/02/22 Rich Barrett MD 516 [facility] 9A [place], [place] 593575 Physician Ophthalmology 01/21/22 Neil Kent MD 500 [place], [place] [address]415 Dermatology 02/24/22 Roney Story DPM [address] [facility] 300 [place] [address] Assigned Musculoskeletal Provider 03/20/22 08/13/22 Erica Farrell APRN MOTOR VEHICLES INSPECTOR 1700 [place] [address] Assigned Heart and Vascular Provider 04/03/22 04/16/22 Diana Desir, [facility] 3033 [place] [address] Assigned MTM Pharmacist 04/07/[address] David [place] [address] [facility] [place] [address] Assigned Surgical Provider 05/08/22 10/08/22 Galo Burrell MD Assigned Heart and Vascular Provider 04/17/22 06/11/22 Livan Sharif MD [address], [address] [address] [place] [address] Cardiovascular Disease 05/14/22 Livan Sharif MD [address], [place] [address] [place] [address] Assigned Heart and Vascular Provider 06/12/22 07/23/22 Catherine Cm MD [address] [place] [address] [place] [address] Cardiovascular Disease 07/21/22 Valery Veronica PA-C 909 [place], [place] [address] Physician Supervisor Asbestos Textile Dermatology 07/21/22 Catherine Cm MD [address] [place] [address] [place] [address] Assigned Heart and Vascular Provider 07/24/22 11/05/22 Johnny Murillo MD [facility] [address] Assigned Musculoskeletal Provider 08/14/22 10/08/22 Brea Quinn APRN MOTOR VEHICLES INSPECTOR 500 [place] [address] Nurse Practitioner Dermatology 09/21/22 Brea Quinn APRN MOTOR VEHICLES INSPECTOR 6401 [place] [address] Assigned Surgical Provider 10/09/22 05/01/24 [place] [address] [facility] 300 [place] [address] Assigned Musculoskeletal Provider 10/09/22 05/01/24 Livan Sharif MD 6405 [facility] [address] [place] [address] Assigned Heart and Vascular Provider 11/06/22 11/12/22 Catherine Cm MD 6[address] [facility] [address] [place] [address] Assigned Heart and Vascular Provider 11/13/22 05/27/23 Sydnie Martinez RN Personal Advocate & Liaison (PAL) Family Medicine 03/28/23 07/31/23 Alfonso Renteria MD [address] [place] 200 [place], [place] 180476 Assigned Neuroscience Provider 04/02/23 Cheng Todd PA-C [address] [place] [address] [phone] Assigned PCP 04/30/23 07/15/23 Radha Lomeli APRN MOTOR VEHICLES INSPECTOR 6405 [facility] [address] [place] [address] Assigned Heart and Vascular Provider 05/28/23 J[address] David OD [address] [facility] [place] [address] MD Ophthalmology 06/15/23 Pao Joseph, VJ Personal Advocate & Liaison (PAL) Nurse 08/01/23 11/07/23 Esha Grimm PA-C [address] [place] [address] Assigned PCP 07/16/23 Valery Veronica PA-C [address] [place] [address] Physician Supervisor Asbestos Textile Dermatology 09/19/23 Rey Tay MD [address] [place] [address] Gastroenterology 09/20/23 Rocky Zepeda DO [address] [place] [address] 872095 Physician Gastroenterology 09/20/23 Philip Dumont MD [address] [place] [address] 521195 Physician Ophthalmology 09/22/23 Meredith Carrera PA-C 909 [place] [address] Assigned Gastroenterology Provider 11/01/23 Neil Kent MD [address] 39[address] Dermatology 11/02/23 [place] [address] [place] [address] [address] [id number] Neurological Surgery 12/26/23 Audrey Waite PA-C [address] [place] [address] 707575 Physician Supervisor [employer]bestos Textile Dermatology 02/28/24 Valery Veronica PA-C 361090 [address], [place] [address] Physician Supervisor Asbestos Textile Dermatology 04/10/24 Herminia Hatch MD [facility]5 [place], [place] 63722125 Assigned Rheumatology Provider 07/02/24 documented as of this encounter
--- OUTSIDE RECORDS SUMMARY | 2024-08-28 18:23 | XMS_ITS | Encounter Summary ---
Author Organization [place] Address [address] [place] [address] Care Team Providers Care Mri Supervisor Name Role Phone Diana Desir [facility] Unavailable Rain Galaviz PA-C Unavailable [phone] Tavia Wyatt MD Unavailable Erica Farrell APRN PACK PRESS OPERATOR Unavailable Rich Barrett MD Unavailable [phone] Neil Kent MD Unavailable Diana Desir [facility] Unavailable [phone] Livan Sharif MD Unavailable Catherine Cm MD Unavailable + Valery Veronica PA-C Unavailable [phone] Brea Quinn AIR SEALING TECHNICIAN PACK PRESS OPERATOR Unavailable Brea Quinn AIR SEALING TECHNICIAN PACK PRESS OPERATOR Unavailable [phone] Jose Francisco Johnson MD Unavailable Alfonso Renteria MD Unavailable [phone] Esha Grimm PA-C Primary Care Provider Lomeli, Radha E AIR SEALING TECHNICIAN PACK PRESS OPERATOR Unavailable [phone] Jelena David OD Unavailable Esha Grimm PA-C Unavailable [phone] Valery Veronica PA-C Unavailable Rey Tay MD Unavailable Rocky Zepeda DO Unavailable Philip Dumont MD Unavailable Meredith Carrera PA-C Unavailable Neil Kent MD Unavailable Juan Pablo Emmanuel MD Unavailable [phone] Audrey Waite PA-C Unavailable [phone] Valery Veronica PA-C Unavailable Herminia Hatch MD Unavailable Encounter Details Date Type Department Care Team (Late st Contact Info) Description 02/27/2024 [facility] Medical Advice [facility] [address] [place] [address] Ebony Cid APRN PACK PRESS OPERATOR 500 [place] [address] Social History Tobacco Use Types [...] do you attend [facility] or pentecostalism services? 1 to 4 times [...] 1 02/07/2024 [facility] - Occupational Stress Questionnaire Answer Date [...] exercise at this level? 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 Gender Identity Female 03/02/2021 5:45 PM CDT Sexual Orientation Straight 02/28/2020 12 :51 AM CDT documented as of this encounter Plan of Treatment Upcoming Encounters Date Type Department Care Team (Late st Contact Info) Description 10/23/2024 9:30 AM CDT Office Visit [facility] Neurology [facility]ics [address], [address] [place] [address] [place] [address] [place] [address] Johnny Penn MD [address] [place] [address] documented as of this encounter Visit Diagnoses Not on filedocumented in this encounter Additional Health Concerns Infection Onset Date Last Indicated Resolved Time Rule Out COVID-19 04/09/2024 04/09/2024 04/10/2024 6:48 PM CDT Assessment Noted Time PHQ-9 Depression Total Score: 3 02/07/20 24 9:33 AM CDT documented as of this encounter Care Teams Mri Supervisor Relationship Specialty Start Date End Date Esha Grimm PA-C [address] [place] [address] PCP - General Family Medicine 05/04/23 Diana Desir, [facility] [address] [place] [place], [place] [address] Pharmacist Pharmacist 04/17/21 Rain Galaviz PA-C [address] [place] [address] [address] [place] [address] Physician Map Plotter Dermatology 04/28/21 Tavia Wyatt MD [address] [place] [address] [place] [address] [id number] Dermatology 07/14/21 Erica Farrell APRN PACK PRESS OPERATOR 6405 [facility] [address] [place], [place] 5[address]65 Nurse Practitioner Cardiovascular Disease 09/09/21 Rich Barrett MD 516 [facility] 9A [place], [place] 237425 Physician Ophthalmology 01/21/22 Neil Kent MD 500 [place], [place] [address] Dermatology 02/24/22 Diana Desir, [facility] 3033 [place] [address] Assigned MTM Pharmacist 04/07/22 Livan Sharif MD [address], [facility] [address] [place] [address] Cardiovascular Disease 05/14/22 Catherine Cm MD [address] [facility] [address] [place] [address] Cardiovascular Disease 07/21/22 Valery Veronica, PA-C 909 [place], [place] 964085 Physician Map Plotter Dermatology 07/21/22 Brea Quinn APRN PACK PRESS OPERATOR 500 [place], [place] 895245 Nurse Practitioner Dermatology 09/21/22 Brea Quinn APRN PACK PRESS OPERATOR [address] [place] [address] 238652 Assigned Surgical Provider 10/09/22 05/01/24 [place] [address] [place] [facility] 300 [place], [place] 543157 Assigned Musculoskeletal Provider 10/09/22 05/01/24 Alfonso Renteria MD 5775 [facility] 200 [place], [place] 253326 Assigned Neuroscience Provider 04/02/23 Radha Lomeli APRN PACK PRESS OPERATOR [address] [facility] [address] [address] [place], [place] 98[address] Assigned Heart and Vascular Provider 05/28/23 Jelena David OD [address] [facility] [place] [address] MD Ophthalmology 06/15/23 Esha Grimm PA-C [address] [place] [phone] Assigned PCP 07/16/23 Valery Veronica PA-C [address] [place] [address] 300555 Physician Map Plotter Dermatology 09/19/23 Rey Tay MD [address] [place] [address] 353835 Gastroenterology 09/20/23 Rocky Zepeda DO [address] [place] [address] 865685 Physician Gastroenterology 09/20/23 Philip Dumont MD [address] [place] [address] 666865 Physician Ophthalmology 09/22/23 Meredith Carrera PA-C [address] [place] [address] 775095 Assigned Gastroenterology Provider 11/01/23 Neil Kent MD [address] [address] Dermatology 11/02/23 [place] [address] [address] Neurological Surgery 12/26/23 Audrey Waite PAUcheC 500 [place] [address] Physician Map Plotter Dermatology 02/28/24 Valery Veronica PAUcheC [address] [place] [address] Physician Map Plotter Dermatology 04/10/24 Herminia Hatch MD [facility]5 [place], [place] 37[address] Assigned Rheumatology Provider 07/02/24 documented as of this encounter
--- OUTSIDE RECORDS SUMMARY | 2024-08-28 18:23 | XMS_ITS | Encounter Summary ---
Author Organization [place] Address [address] [place] [address] Care Team Providers Care Wax Bleacher Name Role Phone Diana Desir [facility] Unavailable [phone] Rain Galaviz PA-C Unavailable Tavia Wyatt MD Unavailable Erica Farrell APRN AUTOMOTIVE MANAGER Unavailable Rich Barrett MD Unavailable [phone] Neil Kent MD Unavailable Diana Desir [facility] Unavailable Livan Sharif MD Unavailable Catherine Cm MD Unavailable + Valery Veronica PA-C Unavailable Brea Quinn FIELD CASHIER AUTOMOTIVE MANAGER Unavailable Brea Quinn FIELD CASHIER AUTOMOTIVE MANAGER Unavailable Jose Francisco Johnson MD Unavailable Alfonso Renteria MD Unavailable [phone] Esha Grimm PA-C Primary Care Provider Radha Lomeli APRN AUTOMOTIVE MANAGER Unavailable Jelena David OD Unavailable Esha Grimm PA-C Unavailable [phone] Valery Veronica PA-C Unavailable [phone] Rey Tay MD Unavailable Rocky Zepeda DO Unavailable Philip Dumont MD Unavailable [phone] Meredith Carrera PA-C Unavailable [phone] Neil Kent MD Unavailable Juan Pablo Emmanuel MD Unavailable [phone] Audrey Waite PA-C Unavailable [phone] Valery Veronica PA-C Unavailable Herminia Hatch MD Unavailable Encounter Details Date Type Department Care Team (Late st Contact Info) Description 03/05/2024 [facility] Medical Advice [facility] [address] [place] [address] Rebecca Moctezuma Social History Tobacco [...] PHQ-2 Score 1 02/07/2024 [facility] - Occupational Stress Questionnaire [...] exercise at this level? 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 Gender Identity Female 03/02/2021 5:45 PM CDT Sexual Orientation Straight 02/28/2020 12 :51 AM CDT documented as of this encounter Plan of Treatment Upcoming Encounters Date Type Department Care Team (Late st Contact Info) Description 10/23/2024 9:30 AM CDT Office Visit [facility] Neurology [address], [address] [place] [address] [place] [address] [place] [address] Johnny Penn MD [address] [place] [address] documented as of this encounter Visit Diagnoses Not on filedocumented in this encounter Additional Health Concerns Infection Onset Date Last Indicated Resolved Time Rule Out COVID-19 04/09/2024 04/09/2024 04/10/2024 6:48 PM CDT Assessment Noted Time PHQ-9 Depression Total Score: 3 02/07/20 24 9:33 AM CDT documented as of this encounter Care Teams Wax Bleacher Relationship Specialty Start Date End Date Esha Grimm PA-C [address] [place] [address] PCP - General Family Medicine 05/04/23 Diana Desir, [facility] [address] [place] [address] Pharmacist Pharmacist 04/17/21 Rain Galaviz PA-C [address] [place] [address] [address] [place] [address] Physician Payroll Bookkeeper Dermatology 04/28/21 Tavia Wyatt MD [address] [place] [address] [address] [place] [address] Dermatology 07/14/21 Erica Farrell APRN AUTOMOTIVE MANAGER 6405 [facility] [address] [place], [place] 132065 Nurse Practitioner Cardiovascular Disease 09/09/21 Rich Barrett MD 516 [facility] 9A [place], [place] 781465 Physician Ophthalmology 01/21/22 Neil Kent MD 500 [place], [place] 555365 Dermatology 02/24/22 Diana Desir, [facility] [address] [place] [address] Assigned MTM Pharmacist 04/07/22 Livan Sharif MD [address] [facility] [address] [place], [place] 968555 Cardiovascular Disease 05/14/22 Catherine Cm MD 6405 [facility] [address] [place] [address] Cardiovascular Disease 07/21/22 Valery Veronica, PA-C [address] [place] [address] 050685 Physician Payroll Bookkeeper Dermatology 07/21/22 Brea Quinn APRN AUTOMOTIVE MANAGER [address] [place] [address] 864905 Nurse Practitioner Dermatology 09/21/22 Brea Quinn APRN AUTOMOTIVE MANAGER [address] [place] [address] Assigned Surgical Provider 10/09/22 05/01/24 [place] [address] [address] Assigned Musculoskeletal Provider 10/09/22 05/01/24 Alfonso Renteria MD [address] 200 [place], [place] 769206 Assigned Neuroscience Provider 04/02/23 Radha Lomeli APRN AUTOMOTIVE MANAGER [address] [facility] L[facility] [place] [place] [address] Assigned Heart and Vascular Provider 05/28/23 Jelena David OD [address] [facility] [address] [place] [id number] MD Ophthalmology 06/15/23 Esha Grimm PA-C [address] [place] [address] Assigned PCP 07/16/23 Valery Veronica PA-C [address] [place] [address] 546465 Physician Payroll Bookkeeper Dermatology 09/19/23 Rey Tay MD [address] [place] [address] 726855 MD Gastroenterology 09/20/23 Rocky Zepeda DO [address] [place] [address] 518625 Physician Gastroenterology 09/20/23 Philip Dumont MD [address] [place] [address] 795485 Physician Ophthalmology 09/22/23 Meredith Carrera PA-C [address] [place] [address] 653965 Assigned Gastroenterology Provider 11/01/23 Neil Kent MD [address] [address] Dermatology 11/02/23 [place] [address] [place] [address] Neurological Surgery 12/26/23 Audrey Waite PAUcheC 500 [place] [address] Physician Payroll Bookkeeper Dermatology 02/28/24 Valery Veronica PA-C [address] [address] Physician Payroll Bookkeeper Dermatology 04/10/24 Herminia Hatch MD [address] [place] [address] Assigned Rheumatology Provider 07/02/24 documented as of this encounter
--- OUTSIDE RECORDS SUMMARY | 2024-08-28 18:23 | XMS_ITS | Encounter Summary ---
Author Organization [facility] Address [address] [place] [address] Care Team Providers Care Over Hauler Helper Name Role Phone Diana Desir [facility] Unavailable Rain Galaviz PA-C Unavailable Tavia Wytat MD Unavailable Erica Farrell APRN CORRECTION OFFICER REFORMATORY Unavailable Rich Barrett MD Unavailable [phone] Neil Kent MD Unavailable Diana Desir [facility] Unavailable Livan Sharif MD Unavailable Catherine Cm MD Unavailable + Valery Veronica PA-C Unavailable Brea Quinn AIR DUCT MECHANIC CORRECTION OFFICER REFORMATORY Unavailable Brea Quinn AIR DUCT MECHANIC CORRECTION OFFICER REFORMATORY Unavailable Jose Francisco Johnson MD Unavailable Alfonso Renteria MD Unavailable [phone] Esha Grimm PA-C Primary Care Provider Radha Lomeli APRN CORRECTION OFFICER REFORMATORY Unavailable Jelena David OD Unavailable Esha Grimm PA-C Unavailable [phone] Valery Veronica PA-C Unavailable Rey Tay MD Unavailable Rocky Zepeda DO Unavailable Philip Dumont MD Unavailable Meredith Carrera PA-C Unavailable Neil Kent MD Unavailable Juan Pablo Emmanuel MD Unavailable [phone] Audrey Waite PA-C Unavailable Valery Veronica PA-C Unavailable Herminia Hatch MD Unavailable Reason for Referral * CV Testing (Routine) - Closed Specialty Diagnoses / Procedures Referred By Contparviz t Referred To Contact Cardiology Diagnoses SVT (supraventricular tachycardia) Procedures Cardiac Event Monitor Adult Pediatric Radha Lomeli APRN CORRECTION OFFICER REFORMATORY [address] [place] [address] Phone: tel: fax: [facility] [address] [facility] [address] [place] [address] Phone: tel: fax: Referral ID Status Reason Start Date Expiration Date Visits Re quested Visits Authorized [id number] Closed 03/07/2024 03/07/2025 1 1 Encounter Details Date Type Department Care Team (Late st Contact Info) Description 03/07/2024 Telephone [facility] [address] [facility] [address] [place] [address] Carley Myles, RN Social History [...] often do you attend [facility] or restoration services? 1 to 4 times [...] Recorded PHQ-2 Score 1 02/07/2024 [facility] - [...] exercise at this level? 30 min 03/10/2023 [place] Depression Scale Answer Date Recorded [place] Depression Score 5 01/14/2021 Last EPDS Self [...] CDT Legal Sex Female 4:13 AM MACHINE FILLER Gender Identity Female 03/02/2021 5:45 PM CDT Sexual Orientation Straight 02/28/2020 12 :51 AM CDT documented as of this encounter Miscellaneous Notes * Telephone Encounter - Carley Myles RN - 03/07/2024 1:21 PM CDT Called patient to discuss. Pt states she will mail back the Zio patch and get event monitor placed. Pt requested a business information manager to call her instead of her reaching out. Will route to scheduling team. Orders in EPIC. Carley ZABALA [facility] * Telephone Encounter - Radha [...] Radha Lomeli CNP for review. Carley ZABALA [facility] documented in this encounter Plan of Treatment Upcoming Encounters Date Type Department Care Team (Late st Contact Info) Description 10/23/2024 9:30 AM CDT Office Visit [facility] Neurology Clinics - [address], [address] [place] [address] [place] [address] [place] [address] Johnny Penn MD [address] [place] [id number] documented as of this encounter Results * CARDIAC EVENT MONITOR APPLICATION AND PROVIDER INTERPRETATION (03/08/2024 11:18 AM CDT) Anatomical Region Laterality Modality Other Radha Lomeli ARLENE CORRECTION OFFICER REFORMATORY CV CARDIAC SERVICES ORDERA BLES Final Result [...] documented as of this encounter Care Teams Over Hauler Helper Relationship Specialty Start Date End Date Esha Grimm PA-C [address] [place] [address] PCP - General Family Medicine 05/04/23 Diana Desir, [facility] [address] [place], [place] 493966 Pharmacist Pharmacist 04/17/21 Rain Galaviz PA-C [address] [place] [address] [address] [place] [address] Physician Hydraulic Lift Operator Dermatology 04/28/21 Tavia Wyatt MD [address] [place] [address] [address] [place] [address] Dermatology 07/14/21 Erica Farrell APRN CORRECTION OFFICER REFORMATORY 6405 [facility] [address] [place] [address] Nurse Practitioner Cardiovascular Disease 09/09/21 Rich Barrett MD 516 [facility] 9A [place], [place] 921925 Physician Ophthalmology 01/21/22 Neil Kent MD 500 [place] [address] Dermatology 02/24/22 [facility] 3033 [place] [address] Assigned [place] Pharmacist 04/07/22 Livan Sharif MD [address], [facility] [address] [place], [place] 562395 Cardiovascular Disease 05/14/22 Catherine Cm MD 6405 [facility]00 [place], [place] 896155 Cardiovascular Disease 07/21/22 Valery Vreonica, PA-C 909 [place] [address] Physician Hydraulic Lift Operator Dermatology 07/21/22 Brea Quinn APRN CORRECTION OFFICER REFORMATORY 500 [place] [address] Nurse Practitioner Dermatology 09/21/22 Brea Quinn APRN CORRECTION OFFICER REFORMATORY 6401 [place] [address] Assigned Surgical Provider 10/09/22 05/01/24 [place] [address] [place] [address] Assigned Musculoskeletal Provider 10/09/22 05/01/24 Alfonso Renteria MD [address] [facility] 200 [place] [address] Assigned Neuroscience Provider 04/02/23 Radha Lomeli APRN CORRECTION OFFICER REFORMATORY 6405 [facility] [address] [place], [place] 694775 Assigned Heart and Vascular Provider 05/28/23 Jelena David OD [address] [facility] [place] [address] MD Ophthalmology 06/15/23 Esha Grimm PA-C [address] [place] [address] Assigned PCP 07/16/23 Valery Veronica PA-C [address] [place] [address] 414495 Physician Hydraulic Lift Operator Dermatology 09/19/23 Rey Tay MD [address] [place] [address] 675455 Gastroenterology 09/20/23 Rocky Zepeda DO [address] [place] [address] 549025 Physician Gastroenterology 09/20/23 Philip Dumont MD [address] [place] [address] 388065 Physician Ophthalmology 09/22/23 Meredith Carrera PA-C 909 [place] [address] Assigned Gastroenterology Provider 11/01/23 Neil Kent MD [address] 588840 Dermatology 11/02/23 [place] [address] [phone] Neurological Surgery 12/26/23 Audrey Waite PA-C [address] [place] [address] 050575 Physician Hydraulic Lift Operator Dermatology 02/28/24 Valery Veronica PA-C 443776 [address], [place] [address] Physician Hydraulic Lift Operator Dermatology 04/10/24 Herimnia Hatch MD [facility]5 [place], [place] [address] Assigned Rheumatology Provider 07/02/24 documented as of this encounter
--- OUTSIDE RECORDS SUMMARY | 2024-08-28 18:23 | XMS_ITS | Encounter Summary ---
Author Organization [place] Address [address] [place] [address] Care Team Providers Care Director Of Pulmonary Unit Name Role Phone Diana Desir [facility] Unavailable Rain Galaviz PA-C Unavailable Tavia Wyatt MD Unavailable Erica Farrell APRN ENROBING MACHINE OPERATOR Unavailable Rich Barrett MD Unavailable [phone] Neil Kent MD Unavailable Diana Desir [facility] Unavailable Livan Sharif MD Unavailable Catherine Cm MD Unavailable + Valery Veronica PA-C Unavailable Brea Quinn AIRLINE TICKET AGENT ENROBING MACHINE OPERATOR Unavailable Brea Quinn AIRLINE TICKET AGENT ENROBING MACHINE OPERATOR Unavailable Jose Francisco Johnson MD Unavailable Alfonso Renteria MD Unavailable [phone] Esha Grimm PA-C Primary Care Provider [phone] Radha Lomeli APRN ENROBING MACHINE OPERATOR Unavailable Jelena David OD Unavailable Esha Grimm PA-C Unavailable [phone] Valery Veronica PA-C Unavailable [phone] Rey Tay MD Unavailable Rocky Zepeda DO Unavailable Philip Dumont MD Unavailable [phone] Meredith Carrera PA-C Unavailable [phone] Neil Kent MD Unavailable Juan Pablo Emmanuel MD Unavailable [phone] Audrey Waite PA-C Unavailable [phone] Valery Veronica PA-C Unavailable [phone] Herminia Hatch MD Unavailable Encounter Details Date Type Department Care Team (Late st Contact Info) Description 02/01/2024 My[facility] Medical Advice [facility] Neurology [address], [address] [place] [address] Macy Pinedo, RN Social History Tobacco [...] exercise at this level? 30 min 03/10/2023 [place] Depression Scale Answer Date Recorded [place] Depression Score 5 01/14/2021 Last EPDS Self [...] PM CDT Legal Sex Female 4:13 AM RANGE MECHANIC Gender Identity Female 03/02/2021 5:45 PM CDT Sexual Orientation Straight 02/28/2020 12 :51 AM CDT documented as of this encounter Plan of Treatment Upcoming Encounters Date Type Department Care Team (Late st Contact Info) Description 10/23/2024 9:30 AM CDT Office Visit [facility] Neurology [address], [address] [place] [address] [place] [address] [place] 315847 Johnny Penn MD [address] [place] [id number] documented as of this encounter Visit Diagnoses Not on filedocumented in this encounter Additional Health Concerns Infection Onset Date Last Indicated Resolved Time Rule Out COVID-19 04/09/2024 04/09/2024 04/10/2024 6:48 PM CDT Assessment Noted Time PHQ-9 Depression Total Score: 4 12/11/20 23 8:40 AM RANGE MECHANIC documented as of this encounter Care Teams Director Of Pulmonary Unit Relationship Specialty Start Date End Date Esha Grimm PA-C [address] [place] [address] PCP - General Family Medicine 05/04/23 Diana Desir, [facility] [address] [place] [address] Pharmacist Pharmacist 04/17/21 Rain Galaviz PA-C [address] [place] [address] [address] [place] [address] Physician Wood Gluer Dermatology 04/28/21 Tavia Wyatt MD [address] [place] [address] [address] [place] [address] Dermatology 07/14/21 Erica Farrell APRN ENROBING MACHINE OPERATOR [address] [facility] [address] [place] [address] Nurse Practitioner Cardiovascular Disease 09/09/21 Rich Barrett MD [address] [place] [address] 9[address] [place], [place] 8[address]185 Physician Ophthalmology 01/21/22 Neil Kent MD [address] [place] [address] 952835 Dermatology 02/24/22 Diana Desir, [facility] [place] [address] Assigned MTM Pharmacist 04/07/22 Livan Sharif MD [address] [facility] [address] [place] [address] Cardiovascular Disease 05/14/22 Catherine Cm MD 6405 [facility] [address] [place] [address] Cardiovascular Disease 07/21/22 Valery Veronica, PA-C [address] [place] [address] 416995 Physician Wood Gluer Dermatology 07/21/22 Brea Quinn APRN ENROBING MACHINE OPERATOR [address] [place] [address] Nurse Practitioner Dermatology 09/21/22 Brea Quinn APRN ENROBING MACHINE OPERATOR [address] [place] [address] Assigned Surgical Provider 10/09/22 05/01/24 [place] [address] [facility] 300 [place] [address] Assigned Musculoskeletal Provider 10/09/22 05/01/24 Alfonso Renteria MD [address] [facility] 200 [place] [address] Assigned Neuroscience Provider 04/02/23 Radha Lomeli APRN ENROBING MACHINE OPERATOR [address] [place] [address] Assigned Heart and Vascular Provider 05/28/23 Jelena David OD 3305 [facility] [place] [place] [address] MD Ophthalmology 06/15/23 Esha Grimm PA-C [address] [place] [address] Assigned PCP 07/16/23 Valery Veronica PA-C [address] [place] [address] 892205 Physician Wood Gluer Dermatology 09/19/23 Rey Tay MD [address] [place] [address] 407615 MD Gastroenterology 09/20/23 Rocky Zepeda DO [address] [place] [address] 440925 Physician Gastroenterology 09/20/23 Philip Dumont MD [address] [place] [address] 151655 Physician Ophthalmology 09/22/23 Meredith Carrera PA-C [address] [place] [address] 100375 Assigned Gastroenterology Provider 11/01/23 Neil Kent MD [address] [address] Dermatology 11/02/23 [place] [address] [address] Neurological Surgery 12/26/23 Audrey Waite PAUcheC 500 [place] [address] Physician Wood Gluer Dermatology 02/28/24 Valery Veronica PA-C [address] [place] [address] Physician Wood Gluer Dermatology 04/10/24 Herminia Hatch MD [facility]5 [place] [address] Assigned Rheumatology Provider 07/02/24 documented as of this encounter
--- OUTSIDE RECORDS SUMMARY | 2024-08-28 18:23 | XMS_ITS | Encounter Summary ---
Author Organization [facility] Address [address] [place] [address] Care Team Providers Care Hand Tufter Name Role Phone Lita Oseguera Unavailable Unavailable Marija Edgar APRN RED CROSS WORKER Primary Care Provider + Marija Edgar APRN RED CROSS WORKER Unavailable Mynor Broussard MD Unavailable [phone] Keisha Dotson MD Unavailable Galo Burrell MD Unavailable Unavailable Diana Desir [facility] Unavailable Rain Galaviz PA-C Unavailable Summer Lara MD Unavailable [phone] Tavia Wyatt MD Unavailable Johnny Murillo MD Unavailable rEica Farrell APRN RED CROSS WORKER Unavailable Teresita Bean [facility] Unavailable Tavia Wyatt MD Unavailable Diana Desir [facility] Unavailable Rich Barrett MD Unavailable [phone] Neil Kent MD Unavailable Roney Story DPM Unavailable Erica Farrell CLOUD OPERATIONS ENGINEER RED CROSS WORKER Unavailable Thang Diana Stanislav [facility] Unavailable Jelena David OD Unavailable Galo Burrell MD Unavailable Unavailable Livan Sharif MD Unavailable + Livan Sharif MD Unavailable + Catherine Cm MD Unavailable + Valery Veronica PA-C Unavailable [phone] Catherine Cm MD Unavailable + Johnny Murillo MD Unavailable [phone] Brea Quinn CLOUD OPERATIONS ENGINEER RED CROSS WORKER Unavailable [phone] Brea Quinn CLOUD OPERATIONS ENGINEER RED CROSS WORKER Unavailable [phone] Jose Francisco Johnson MD Unavailable Livan Sharif MD Unavailable + IsCatherine hobbs MD Unavailable + Sydnie Maritnez RN Unavailable Unavailable Alfonso Renteria MD Unavailable Esha Grimm-C Primary Care Provider Cheng Todd PA-C Unavailable Radha Lomeli CLOUD OPERATIONS ENGINEER RED CROSS WORKER Unavailable [phone] Jelena David OD Unavailable Pao Joseph RN Unavailable Unavailable Esha Grimm-C Unavailable [phone] JeremíasValery damon PA-C Unavailable [phone] Rey Tay MD Unavailable Rocky Zepeda DO Unavailable Philip Dumont MD Unavailable [phone] Meredith CarreraC Unavailable [phone] Neil Kent MD Unavailable Juan Pablo Emmanuel MD Unavailable [phone] Audrey WaiteC Unavailable [phone] Valery Veronica PA-C Unavailable [phone] Herminia Hatch MD Unavailable Encounter Details Date [...] health [facility] or [facility] services? More than 4 times [...] Date Recorded PHQ-2 Score 0 04/02/2021 [facility] [...] a long term (including now)? No 08/11/2020 [place] Depression Scale Answer Date Recorded [place] [...] PM CDT Legal Sex Female 4:13 AM CROWNING INSPECTOR Gender Identity Female 03/02/2021 5:45 PM CDT Sexual Orientation Straight 02/28/2020 12 :51 AM CDT COVID-19 Exposure Response Date Recorded In the last month, have you been in contact with someone who was confirmed or suspected to have Coronavirus / COVID-19? No / Unsure 09/02/2021 12:26 PM CROWNING INSPECTOR documented as of this encounter Plan of Treatment Upcoming Encounters Date Type Department Care Team (Late st Contact Info) Description 10/23/2024 9:30 AM CDT Office Visit [facility] Neurology [address], [address] [place] [address] [place] [address] [address] [place] [id number] Johnny Penn MD 1965 [facility] [place] [address] documented as of this encounter Visit Diagnoses Not on filedocumented in this encounter Additional Health Concerns Infection Onset Date Last Indicated Resolved Time Rule Out COVID-19 12/18/2021 12/18/2021 12/19/2021 11:34 AM CDT Rule Out COVID-19 02/24/2022 02/24/2022 02/25/2022 1:08 PM CDT Rule Out COVID-19 04/26/2022 04/26/2022 04/26/2022 6:47 AM CDT Rule Out COVID-19 05/17/2022 05/17/2022 05/17/2022 10:20 PM CROWNING INSPECTOR Rule Out COVID-19 06/09/2022 06/09/2022 06/09/2022 9:35 AM CROWNING INSPECTOR COVID-19 06/09/2022 06/09/2022 06/30/2022 11:4 1 PM CROWNING INSPECTOR Rule Out COVID-19 11/10/2022 11/10/2022 11/11/2022 12:17 PM CDT Rule Out COVID-19 03/07/2023 03/07/2023 03/07/2023 1:20 PM CDT Rule Out COVID-19 12/26/2023 12/26/2023 12/26/2023 9:50 AM CDT Rule Out COVID-19 04/09/2024 04/09/2024 04/10/2024 6:48 PM CDT Assessment Noted Time PHQ-9 Depression Total Score: 2 04/02/20 10:19 AM CDT documented as of this encounter Care Teams Hand Tufter Relationship Specialty Start Date End Date Marija Edgar APRN RED CROSS WORKER PCP - General Nurse Practitioner 04/30/20 04/14/23 Esha Grimm PA-C [address] [place] [address] PCP - General Family Medicine 05/04/23 Lita Oseguera Personal Advocate & Liaison (PAL) 02/28/20 03/27/23 Marija Edgar APRN RED CROSS WORKER Assigned PCP 06/08/20 04/29/23 Mynor Broussard MD [address] [facility] 500 [place], [place] [address]25 Assigned Surgical Provider 06/01/20 11/28/21 Keisha Dotson MD 909 [place] [address] Assigned Neuroscience Provider 06/04/20 04/01/23 Galo Burrell MD Assigned Heart and Vascular Provider 10/05/20 04/02/22 [facility] 3033 [place] [address] Pharmacist Pharmacist 04/17/21 Rain Galaviz PA-C [address] [place] [address] [address] [place] [address] Physician Tafe Lecturer Dermatology 04/28/21 Summer Lara MD [address] [place] [address] Assigned OBGYN Provider 05/31/21 2 Tavia Wyatt MD [address] [place] [address] 236964 Dermatology 07/14/21 Johnny Murillo MD [facility] [place], [place] [address]00 [place] [address] Assigned Musculoskeletal Provider 08/30/21 03/17/22 Erica Farrell APRN RED CROSS WORKER 6405 [facility] [address] [place] [address] Nurse Practitioner Cardiovascular Disease 09/09/21 Teresita Bean [facility] [address] [facility] [place] [address] Pharmacist Pharmacist 09/24/21 09/29/21 Tavia Wyatt MD [address] [place] [address] Assigned Surgical Provider 11/29/21 05/07/22 Diana Desir [facility] 3033 [place] [address] Assigned MTM Pharmacist 01/02/22 Rich Barrett MD [address] 097675 Physician Ophthalmology 01/21/22 Neil Kent MD 500 [place] [address] Dermatology 02/24/22 [place] [address] [facility] 300 [place] [address] Assigned Musculoskeletal Provider 03/20/22 08/13/22 Erica Farrell APRN RED CROSS WORKER 1700 [place] [address] Assigned Heart and Vascular Provider 04/03/22 04/16/22 Diana Desir [facility] 3033 [place] [address] Assigned MTM Pharmacist 04/07/22 [place] David [place] [address] [facility] [place] [address] Assigned Surgical Provider 05/08/22 10/08/22 Galo Burrell MD Assigned Heart and Vascular Provider 04/17/22 06/11/22 Livan Sharif MD [address], [facility] [address] [place] [address] Cardiovascular Disease 05/14/22 Livan Sharif MD [address], [facility] [address] [place] [address] Assigned Heart and Vascular Provider 06/12/22 07/23/22 Catherine Cm MD [address] [facility]00 [place] [address] Cardiovascular Disease 07/21/22 Valery Veronica, PAUcheC 909 [place], [place] 547[address] Physician Tafe Lecturer Dermatology 07/21/22 Catherine Cm MD [address] [facility]00 [place] [address] Assigned Heart and Vascular Provider 07/24/22 11/05/22 Johnny Murillo MD [facility] 183224 Assigned Musculoskeletal Provider 08/14/22 10/08/22 Brea Quinn APRN RED CROSS WORKER [address] [place] [address] Nurse Practitioner Dermatology 09/21/22 Brea Quinn APRN RED CROSS WORKER 6401 [place] [address] Assigned Surgical Provider 10/09/22 05/01/24 [place] [address] [address] Assigned Musculoskeletal Provider 10/09/22 05/01/24 Livan Sharif MD [address], [facility] [address] [place] [address] Assigned Heart and Vascular Provider 11/06/22 11/12/22 Catherine Cm MD [address] [facility] [address] [place] [address] Assigned Heart and Vascular Provider 11/13/22 05/27/23 Sydnie Martinez RN Personal Advocate & Liaison (PAL) Family Medicine 03/28/23 07/31/23 Alfonso Renteria MD 5775 [facility] 200 [place], [place] 7[address]66 Assigned Neuroscience Provider 04/02/23 Cheng Todd PA-C [address] [place] [address] Assigned PCP 04/30/23 07/15/23 Radha Lomeli APRN RED CROSS WORKER 6405 [facility] [address] [place], [place] 0[address] Assigned Heart and Vascular Provider 05/28/23 Jelena David OD [address] [facility] [place] [address] MD Ophthalmology 06/15/23 Pao Joseph, VJ Personal Advocate & Liaison (PAL) Nurse 08/01/23 11/07/23 Esha Grimm PA-C [address] [place] [phone] Assigned PCP 07/16/23 Valery Veronica PA-C [address] [place] [address] 454805 Physician Tafe Lecturer Dermatology 09/19/23 Rey Tay MD [address] [place] [address] 682605 MD Gastroenterology 09/20/23 Rocky Zepeda DO [address] [place] [address] 519575 Physician Gastroenterology 09/20/23 Philip Dumont MD [address] [place] [address] 819365 Physician Ophthalmology 09/22/23 Meredith Carrera PA-C [address] [place] [address] 644725 Assigned Gastroenterology Provider 11/01/23 Neil Kent MD [address] [address] Dermatology 11/02/23 [place] [address] 483477 Neurological Surgery 12/26/23 Audrey Waite PA-C 500 [place] [address] Physician Tafe Lecturer Dermatology 02/28/24 Valery Veronica PA-C 901797 [address], [place] [address] Physician Tafe Lecturer Dermatology 04/10/24 Herminia Hatch MD [facility]5 [place], [place] [address] Assigned Rheumatology Provider 07/02/24 documented as of this encounter
--- OUTSIDE RECORDS SUMMARY | 2024-08-28 18:23 | XMS_ITS | Encounter Summary ---
Author Organization [facility] Address [address] [place] [address] Care Team Providers Care Security Test Engineer Name Role Phone Lita Oseguera Unavailable Unavailable Marija Edgar APRN DIRECTOR OF EVENT MARKETING Primary Care Provider + Marija Edgar APRN DIRECTOR OF EVENT MARKETING Unavailable Mynor Broussard MD Unavailable [phone] Keisha Dotson MD Unavailable [phone] Galo Burrell MD Unavailable Unavailable Diana Desir [facility] Unavailable Rain Galaviz PA-C Unavailable Summer Lara MD Unavailable [phone] Tavia Wyatt MD Unavailable Johnny Murillo MD Unavailable [phone] Erica Farrell APRN DIRECTOR OF EVENT MARKETING Unavailable Teresita Bean [facility] Unavailable [phone] Tavia Wyatt MD Unavailable Diana Desir [facility] Unavailable Rich Barrett MD Unavailable [phone] Neil Kent MD Unavailable Roney Story DPM Unavailable Erica Farrell BALLING MACHINE OPERATOR DIRECTOR OF EVENT MARKETING Unavailable Thang Daina Stanislav [facility] Unavailable Jelena David OD Unavailable [phone] Galo Burrell MD Unavailable Unavailable Livan Sharif MD Unavailable + Livan Sharif MD Unavailable + Catherine Cm MD Unavailable + Valery Veronica PA-C Unavailable [phone] Catherine Cm MD Unavailable + Johnny Murillo MD Unavailable [phone] Brea Quinn BALLING MACHINE OPERATOR DIRECTOR OF EVENT MARKETING Unavailable [phone] Brea Quinn BALLING MACHINE OPERATOR DIRECTOR OF EVENT MARKETING Unavailable [phone] Jose Francisco Johnson MD Unavailable Livan Sharif MD Unavailable + IsCatherine hobbs MD Unavailable + Sydnie Martinez RN Unavailable Unavailable Alfonso Renteria MD Unavailable Esha Grimm-C Primary Care Provider Cheng Todd PA-C Unavailable Radha Lomeli BALLING MACHINE OPERATOR DIRECTOR OF EVENT MARKETING Unavailable [phone] Jelena David OD Unavailable Pao Joseph RN Unavailable Unavailable Esha Grimm-C Unavailable [phone] JeremíasValery damon PA-C Unavailable [phone] Rey Tay MD Unavailable Rocky Zepeda DO Unavailable Philip Dumont MD Unavailable [phone] Meredith CarreraC Unavailable [phone] Neil Kent MD Unavailable Juan Pablo Emmanuel MD Unavailable Audrey WaiteC Unavailable [phone] Valery VeronicaC Unavailable [phone] Herminia Hatch MD Unavailable Encounter Details Date Type Department Care Team (Late st Contact Info) Description 09/24/2021 MyC Medical Advice [facility] [place] [address] [facility] [address] [place] [address] [facility] [address] [facility] [place] [address] Social History Tobacco Use Types Packs/Day [...] How often do you attend anglican or roman catholic serv ices? Never 09/22/2021 [...] Answer Date Recorded PHQ-2 Score 2 09/22/2021 [facility] [place] of Occupat ional Health - Occupational Stress [...] in a prison (including now)? No 09/22/2021 [place] Depression Scale Answer Date Recorded [place] Depression Score 5 01/14/2021 Last EPDS Self Harm Result Not on file 01/14 Education Answer Date Recorded What is the highest level of school you have completed or the highest degree you have received? 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 ACTIMIZE ARCHITECT Gender Identity Female 03/02/2021 5:45 PM [...] Description 10/23/2024 9:30 AM CDT Office Visit [facility] Neurology [facility] [address], [address] [place] [address] [place] [address] [place] [address] Johnny Penn MD [address]62 [place] [address] documented as of this encounter Visit Diagnoses Not on filedocumented in this encounter Additional Health Concerns Infection Onset Date Last Indicated Resolved Time Rule Out COVID-19 12/18/2021 12/18/2021 12/19/2021 11:34 AM CDT Rule Out COVID-19 02/24/2022 02/24/2022 02/25/2022 1:08 PM CDT Rule Out COVID-19 04/26/2022 04/26/2022 04/26/2022 6:47 AM CDT Rule Out COVID-19 05/17/2022 05/17/2022 05/17/2022 10:20 PM ACTIMIZE ARCHITECT Rule Out COVID-19 06/09/2022 06/09/2022 06/09/2022 9:35 AM ACTIMIZE ARCHITECT COVID-19 06/09/2022 06/09/2022 06/30/2022 11:4 1 PM ACTIMIZE ARCHITECT Rule Out COVID-19 11/10/2022 11/10/2022 11/11/2022 12:17 PM CDT Rule Out COVID-19 03/07/2023 03/07/2023 03/07/2023 1:20 PM CDT Rule Out COVID-19 12/26/2023 12/26/2023 12/26/2023 9:50 AM CDT Rule Out COVID-19 04/09/2024 04/09/2024 04/10/2024 6:48 PM CDT Assessment Noted Time PHQ-9 Depression Total Score: 2 04/02/20 21 10:19 AM CDT documented as of this encounter Care Teams Security Test Engineer Relationship Specialty Start Date End Date Marija Edgar APRN CNP PCP - General Nurse Practitioner 04/30/20 04/14/23 Esha Grimm PA-C [address] [place] [address] PCP - General Family Medicine 05/04/23 Lita Oseguera Personal Advocate & Liaison (PAL) 02/28/20 03/27/23 Marija Edgar APRN DIRECTOR OF EVENT MARKETING Assigned PCP 06/08/20 04/29/23 Mynor Broussard MD 6363 [facility] 500 [place] [address] Assigned Surgical Provider 06/01/20 11/28/21 Keisha Dotson MD 909 [place], [place] 381165 Assigned Neuroscience Provider 06/04/20 04/01/23 Galo Burrell MD Assigned Heart and Vascular Provider 10/05/20 04/02/22 [facility] [address] [place] [address] Pharmacist Pharmacist 04/17/21 Rain Galaviz PA-C [address] [place] [address] [address] [place] [address] Physician Hvac Sheet Metal Installer Dermatology 04/28/21 Summer Lara MD [address] [place] [address] 634724 Assigned OBGYN Provider 05/31/21 2 Tavia Wyatt MD [address] [place] [address] 463744 Dermatology 07/14/21 Johnny Murillo MD [facility] [place] [address] Assigned Musculoskeletal Provider 08/30/21 03/17/22 Erica Farrell APRN DIRECTOR OF EVENT MARKETING [address] [facility] [address] [place] [address] Nurse Practitioner Cardiovascular Disease 09/09/21 [facility] [address] [facility] [place] [address] Pharmacist Pharmacist 09/24/21 09/29/21 Tavia Wyatt MD [address] [place] [address] Assigned Surgical Provider 11/29/21 05/07/22 [facility] 3033 [place] [address] Assigned MTM Pharmacist 01/02/22 Rich Barrett MD [address] [address] Physician Ophthalmology 01/21/22 Neil Kent MD 500 [place] [address] Dermatology 02/24/22 Roney Story DPM [address] [facility] [address] [place] [address] Assigned Musculoskeletal Provider 03/20/22 08/13/22 Erica Farrell APRN DIRECTOR OF EVENT MARKETING 1700 [place] [address] Assigned Heart and Vascular Provider 04/03/22 04/16/22 Diana Desir [facility] 3033 [place] [address] Assigned [place] Pharmacist 04/07/22 Jelena David OD [address] [place] [address] Assigned Surgical Provider 05/08/22 10/08/22 Galo Burrell MD Assigned Heart and Vascular Provider 04/17/22 06/11/22 Livan Sharif MD [address], [place] [address] [place] [address] Cardiovascular Disease 05/14/22 Livan Sharif MD [address] [place] [address] [place] 117[address] Assigned Heart and Vascular Provider 06/12/22 07/23/22 Catherine Cm MD [address] [place] [address] [place] [address] Cardiovascular Disease 07/21/22 Valery Veronica PAUcheC 909 [place] [address] Physician Hvac Sheet Metal Installer Dermatology 07/21/22 Catherine Cm MD [address] [place] [address] [place] [address] Assigned Heart and Vascular Provider 07/24/22 11/05/22 Johnny Murillo MD [address] 578154 Assigned Musculoskeletal Provider 08/14/22 10/08/22 Brea Quinn APRN DIRECTOR OF EVENT MARKETING [address] [place] [address] 756185 Nurse Practitioner Dermatology 09/21/22 Brea Quinn APRN DIRECTOR OF EVENT MARKETING [facility] [place], [place] 0[address] Assigned Surgical Provider 10/09/22 05/01/24 [place] [address] [place] [address] [address] Assigned Musculoskeletal Provider 10/09/22 05/01/24 Livan Sharif MD [address], [facility] [address] [place] [address] Assigned Heart and Vascular Provider 11/06/22 11/12/22 Catherine Cm MD [address] [facility] [address] [place] [address] Assigned Heart and Vascular Provider 11/13/22 05/27/23 Sydnie Martinez RN Personal Advocate & Liaison (PAL) Family Medicine 03/28/23 07/31/23 Alfonso Renteria MD 5775 [facility] 200 [place], [place] 5615[address] Assigned Neuroscience Provider 04/02/23 Cheng Todd PA-C [address] [place] [address] Assigned PCP 04/30/23 07/15/23 Radha Lomeli APRN DIRECTOR OF EVENT MARKETING [address] [facility] [address] [place] [address] Assigned Heart and Vascular Provider 05/28/23 Jelena David OD [address] [facility] [address] [place] [phone] Ophthalmology 06/15/23 Pao Joseph, RN Personal Advocate & Liaison (PAL) Nurse 08/01/23 11/07/23 Esha Grimm PA-C [address] [place] [address] Assigned PCP 07/16/23 Valery Veronica PA-C [address] [place] [address] 081185 Physician Hvac Sheet Metal Installer Dermatology 09/19/23 Rey Tay MD [address] [place] [address] 215025 MD Gastroenterology 09/20/23 Rocky Zepeda DO [address] [place] [address] [id number] Physician Gastroenterology 09/20/23 Philip Dumont MD [address] [place] [address] 059325 Physician Ophthalmology 09/22/23 Meredith Carrera PA-C 909 [place] [address] Assigned Gastroenterology Provider 11/01/23 Neil Kent MD [address] [address] MD Dermatology 11/02/23 [place] [address] [place] [address] [id number] Neurological Surgery 12/26/23 Audrey Waite PA-C 500 [place] [address] Physician Hvac Sheet Metal Installer Dermatology 02/28/24 Valery Veronica PA-C 495432 [address], [place] [address] Physician Hvac Sheet Metal Installer Dermatology 04/10/24 Herminia Hatch MD 1875 [place] [address] Assigned Rheumatology Provider 07/02/24 documented as of this encounter
--- OUTSIDE RECORDS SUMMARY | 2024-08-28 18:23 | XMS_ITS | Encounter Summary ---
Author Organization [facility] Address [address] [place] [address] Care Team Providers Care Bioinformatics Associate Name Role Phone Lita Oseguera Unavailable Unavailable Marija Edgar APRN ASSISTANT COMMISSIONER Primary Care Provider + Marija Edgar APRN ASSISTANT COMMISSIONER Unavailable [phone] Keisha Dotson MD Unavailable [phone] Diana Desir [facility] Unavailable Rain Galaviz PA-C Unavailable Tavia Wyatt MD Unavailable Erica Farrell APRN ASSISTANT COMMISSIONER Unavailable Rich Barrett MD Unavailable [phone] Neil Kent MD Unavailable Diana Desir [facility] Unavailable Livan Sharif MD Unavailable Catherine Cm MD Unavailable + Valery Veronica PA-C Unavailable [phone] Brea Quinn BUYER INTERN ASSISTANT COMMISSIONER Unavailable Brea Quinn BUYER INTERN ASSISTANT COMMISSIONER Unavailable Jose Francisco Johnson MD Unavailable Catherine Cm MD Unavailable + Sydnie Martinez RN Unavailable Unavailable Alfonso Renteria MD Unavailable [phone] Esha Grimm PA-C Primary Care Provider Cheng Todd PA-C Unavailable ArmaniRadha APRN ASSISTANT COMMISSIONER Unavailable Jelena Daivd OD Unavailable Pao Joseph RN Unavailable Unavailable Esha Grimm PA-C Unavailable [phone] Valery Veronica PA-C Unavailable Rey Tay MD Unavailable Rocky Zepeda DO Unavailable Philip Dumont MD Unavailable [phone] Meredith Carrera PA-C Unavailable Neil Kent MD Unavailable Juan Pablo Emmanuel MD Unavailable [phone] Audrey Waite PA-C Unavailable JeremíasValery damon PA-C Unavailable [phone] Herminia Hatch MD Unavailable Encounter Details Date Type Department Care Team (Late st Contact Info) Description 01/28/2023 MyC Medical Advice [facility] [address] [place] [address] Margaret Rendon, RN Social History Tobacco Use [...] How often do you attend hindu or adventist serv ices? Never 09/22/2021 Do [...] Answer Date Recorded PHQ-2 Score 1 10/11/2022 [facility] of Occupat [...] a nursing home (including now)? No 09/22/2021 [place] Depression Scale Answer Date Recorded [place] Depression Score 5 01/14/2021 Last EPDS Self Harm Result Not on file 01/14 Education Answer Date Recorded What is the highest level of school you have completed or the highest degree you have received? 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 FIBER WORKER Gender Identity Female 03/02/2021 5:45 PM [...] Visit [facility] Neurology [facility] [address] [facility], [address] [place] [address] [place] [address] [place], [place] [address] Johnny Penn MD [address] [place] [id number] documented as of this encounter Visit Diagnoses [...] documented as of this encounter Care Teams Bioinformatics Associate Relationship Specialty Start Date End Date Marija Edgar APRN CNP PCP - General Nurse Practitioner 04/30/20 04/14/23 Esha Grimm PA-C [address] [place] [address] PCP - General Family Medicine 05/04/23 Lita Oseguera Personal Advocate & Liaison (PAL) 02/28/20 03/27/23 Marija Edgar APRN ASSISTANT COMMISSIONER Assigned PCP 06/08/20 04/29/23 Keisha Dotson MD [address] [place] [address] Assigned Neuroscience Provider 06/04/20 04/01/23 Diana Desir, [facility] [address] [place], [place] 1220[address] Pharmacist Pharmacist 04/17/21 Rain Galaviz PA-C [address] [place] [address] [address] [place] [address] Physician Commercial Insurance Underwriter Dermatology 04/28/21 Tavia Wyatt MD [address] [place] [address] [address] [facility] [place] [address] Dermatology 07/14/21 Erica Farrell APRN ASSISTANT COMMISSIONER [address] [place] [address] Nurse Practitioner Cardiovascular Disease 09/09/21 Rich Barrett MD [address] 749915 Physician Ophthalmology 01/21/22 Neil Kent MD [address] [place] [address] 622975 Dermatology 02/24/22 [facility] [address] [place] [address] Assigned MTM Pharmacist 04/07/22 Livan Sharif MD [address] [place] [address] Cardiovascular Disease 05/14/22 Catherine Cm MD [address] [place] 8[address]95 Cardiovascular Disease 07/21/22 Valery Veronica, PAUcheC [address] [place] [address] 377765 Physician Commercial Insurance Underwriter Dermatology 07/21/22 Brea Quinn APRN ASSISTANT COMMISSIONER [address] [place], [place] 085015 Nurse Practitioner Dermatology 09/21/22 Brea Quinn APRN ASSISTANT COMMISSIONER [address] [place] [address] Assigned Surgical Provider 10/09/22 05/01/24 [place] [address] [place] [address] Assigned Musculoskeletal Provider 10/09/22 05/01/24 Catherine Cm MD [address] [place] 432775 Assigned Heart and Vascular Provider 11/13/22 05/27/23 Sydnie Martinez RN Personal Advocate & Liaison (PAL) Family Medicine 03/28/23 07/31/23 Alfonso Renteria MD [address] [facility] [address] [place] [address] Assigned Neuroscience Provider 04/02/23 Cheng Todd PA-C [address] [place] [address] Assigned PCP 04/30/23 07/15/23 Radha Lomeli APRN ASSISTANT COMMISSIONER [address] [facility] [address] [place] [address] Assigned Heart and Vascular Provider 05/28/23 Jelena David OD [address] [facility] [place] [address] Ophthalmology 06/15/23 Pao Joseph, VJ Personal Advocate & Liaison (PAL) Nurse 08/01/23 11/07/23 Esha Grimm PA-C [address] [place] [address] Assigned PCP 07/16/23 Valery Veronica PA-C 9 [place], [place] 719[address] Physician Commercial Insurance Underwriter Dermatology 09/19/23 eRy Tay MD 9 [place] [address] Gastroenterology 09/20/23 Rocky Zepeda DO 500 [place] [address] Physician Gastroenterology 09/20/23 Philip Dumont MD 6 [place] [address] Physician Ophthalmology 09/22/23 Meredith Carrera PA-C [address] [place] [address] Assigned Gastroenterology Provider 11/01/23 Neil Kent MD [address] [address] MD Dermatology 11/02/23 [place] [address] [address] [address] Neurological Surgery 12/26/23 Audrey Waite PA-C [address] [place] [address] Physician Commercial Insurance Underwriter Dermatology 02/28/24 Valery Veronica PA-C [address] [place] [address] Physician Commercial Insurance Underwriter Dermatology 04/10/24 Herminia Hatch MD [facility]5 [place], [place] 411[address] Assigned Rheumatology Provider 07/02/24 documented as of this encounter
--- OUTSIDE RECORDS SUMMARY | 2024-08-28 18:23 | XMS_ITS | Encounter Summary ---
Author Organization [facility] Address [address] [place] [address] Care Team Providers Care Bankruptcy Paralegal Name Role Phone Lita Oseguera Unavailable Unavailable Marija Edgar APRN SATELLITE INSTALLER Primary Care Provider + Mraija Edgar APRN SATELLITE INSTALLER Unavailable [phone] Keisha Dotson MD Unavailable [phone] Diana Desir [facility] Unavailable [phone] Rain Galaviz PA-C Unavailable Tavia Wyatt MD Unavailable Erica Farrell APRN SATELLITE INSTALLER Unavailable Rich Barrett MD Unavailable [phone] Neil Kent MD Unavailable Diana Desir [facility] Unavailable Livan Sharif MD Unavailable Catherine Cm MD Unavailable + Valery Veronica PA-C Unavailable [phone] Brea Quinn PORT CRANE OPERATOR SATELLITE INSTALLER Unavailable Brea Quinn PORT CRANE OPERATOR SATELLITE INSTALLER Unavailable Jose Francisco Johnson MD Unavailable Catherine Cm MD Unavailable + Sydnie Matrinez RN Unavailable Unavailable Alfonso Renteria MD Unavailable [phone] Esha Grimm PA-C Primary Care Provider [phone] Cheng Todd PA-C Unavailable Radha Lomeli APRN SATELLITE INSTALLER Unavailable Jelena David OD Unavailable Pao Joseph RN Unavailable Unavailable Esha Grimm PA-C Unavailable [phone] Valery Veronica PA-C Unavailable Rey Tay MD Unavailable Rocky Zepeda DO Unavailable Philip Dumont MD Unavailable Meredith Carrera PA-C Unavailable Neil Kent MD Unavailable Juan Pablo Emmanuel MD Unavailable Audrey Waite PA-C Unavailable [phone] JeremíasValery damon PA-C Unavailable Herminia Hatch MD Unavailable Encounter Details Date Type Department Care Team (Late st Contact Info) Description 12/23/2022 [facility] Medical Advice [facility] [id number] [place] [address] Lauren Claudio PA-C [address] [place] [address] Social History Tobacco Use Types [...] How often do you attend protestant or gnosticism serv ices? Never 09/22/2021 Do [...] Answer Date Recorded PHQ-2 Score 1 10/11/2022 [facility] [place] of Occupat ional Health - Occupational Stress [...] a senior care (including now)? No 09/22/2021 Harrison Depression Scale Answer Date Recorded Harrison Depression Score 5 01/14/2021 Last EPDS Self Harm Result Not on file 01/14 Education Answer Date Recorded What is the highest level of school you have completed or the highest degree you have received? 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 NUTS AND BOLTS ASSEMBLER Gender Identity Female 03/02/2021 5:45 PM [...] CDT Office Visit [facility] Neurology [facility] [address] [facility], [address] [place] [address] [place] [address] [place] [address] Johnny Penn MD [address] [place] [address] documented as of this [...] documented as of this encounter Care Teams Bankruptcy Paralegal Relationship Specialty Start Date End Date Marija Edgar APRN SATELLITE INSTALLER PCP - General Nurse Practitioner 04/30/20 04/14/23 Esha Grimm PA-C [address] [place] [phone] PCP - General Family Medicine 05/04/23 Lita Oseguera Personal Advocate & Liaison (PAL) 02/28/20 03/27/23 Marija Edgar APRN SATELLITE INSTALLER Assigned PCP 06/08/20 04/29/23 Keisha Dotson MD [address] [place], [place] 428[address] Assigned Neuroscience Provider 06/04/20 04/01/23 Diana Desir, [facility] [address] [place], [place] 2320[address] Pharmacist Pharmacist 04/17/21 Rain Galaviz PA-C [address] [place] [address] [address] [facility] [place] [address] Physician Zoo Keeper Dermatology 04/28/21 Tavia Wyatt MD [address] [place] [address] DR [address] [facility] [place] [facility] [address] Dermatology 07/14/21 Erica Farrell APRN SATELLITE INSTALLER [address] [place] [address] Nurse Practitioner Cardiovascular Disease 09/09/21 Rich Barrett MD [address] [place] [address] [phone] Physician Ophthalmology 01/21/22 Neil Kent MD [address] [place] [address] [id number] Dermatology 02/24/22 Diana Desir, [facility] [address] [place], [place] 019496 Assigned MTM Pharmacist 04/07/22 Livan Sharif MD [address] [place] [address] [place] 372135 Cardiovascular Disease 05/14/22 Catherine Cm MD [address] [facility] [place] 151055 Cardiovascular Disease 07/21/22 Valery Veronica, PAUcheC [address] [place] [address] 813165 Physician Zoo Keeper Dermatology 07/21/22 Brea Quinn APRN SATELLITE INSTALLER [address] [place] [address] [phone] Nurse Practitioner Dermatology 09/21/22 Brea Quinn APRN SATELLITE INSTALLER [address] [place] [address] 920522 Assigned Surgical Provider 10/09/22 05/01/24 [place] [address] [place] [address] 932917 Assigned Musculoskeletal Provider 10/09/22 05/01/24 Catherine Cm MD [address] [facility] [place] 334785 Assigned Heart and Vascular Provider 11/13/22 05/27/23 Sydnie Martinez, VJ Personal Advocate & Liaison (PAL) Family Medicine 03/28/23 07/31/23 Alfonso Renteria MD [address] [facility] [address] [place] [address] Assigned Neuroscience Provider 04/02/23 Cheng Todd PA-C [address] [place] [address] [phone] Assigned PCP 04/30/23 07/15/23 Radha Lomeli APRN SATELLITE INSTALLER [address] [facility] [address] [place], [place] 871295 Assigned Heart and Vascular Provider 05/28/23 Jelena David OD [address] [facility] [place] [address] Ophthalmology 06/15/23 Pao Joseph, VJ Personal Advocate & Liaison (PAL) Nurse 08/01/23 11/07/23 Esha Grimm PA-C [address] [place] [address] Assigned PCP 07/16/23 Valery Veronica PA-C [address] [place] [address] 266765 Physician Zoo Keeper Dermatology 09/19/23 Rey Tay MD [address] [place] [address] 580655 MD Gastroenterology 09/20/23 Rocky Zepeda DO 500 [place] [address] Physician Gastroenterology 09/20/23 Philip Dumont MD 516 [place], [place] 576485 Physician Ophthalmology 09/22/23 Meredith Carrera PA-C 9 [place], [place] 343135 Assigned Gastroenterology Provider 11/01/23 Neil Kent MD [address] 094830 Dermatology 11/02/23 [place] [address] 137147 Neurological Surgery 12/26/23 Audrey Waite PA-C 500 [place] [address] Physician Zoo Keeper Dermatology 02/28/24 Valery Veronica PA-C [address] [place] [address] Physician Zoo Keeper Dermatology 04/10/24 Herminia Hatch MD [facility]5 [place] [address] Assigned Rheumatology Provider 07/02/24 documented as of this encounter
--- OUTSIDE RECORDS SUMMARY | 2024-08-28 18:24 | XMS_ITS | Encounter Summary ---
Author Organization [facility] Address [address] [place] [address] Care Team Providers Care Film Processing Shift Supervisor Name Role Phone Diana Desir [facility] Unavailable Rain Galaviz PA-C Unavailable Tavia Wyatt MD Unavailable Erica Farrell APRN BILLING COORDINATOR Unavailable Rich Barrett MD Unavailable [phone] Neil Kent MD Unavailable Diana Desir [facility] Unavailable Livan Sharif MD Unavailable Catherine Cm MD Unavailable + Valery Veronica PA-C Unavailable Brea Quinn DISTRICT PLANT SUPERVISOR BILLING COORDINATOR Unavailable Brea Quinn DISTRICT PLANT SUPERVISOR BILLING COORDINATOR Unavailable Jose Francisco Johnson MD Unavailable Alfonso Renteria MD Unavailable [phone] Esha Grimm PA-C Primary Care Provider [phone] Radha Lomeli APRN BILLING COORDINATOR Unavailable Jelena David OD Unavailable [phone] Pao Joseph RN Unavailable Unavailable Esha Grimm PA-C Unavailable [phone] Valery Veronica PA-C Unavailable [phone] Rey Tay MD Unavailable Rocky Zepeda DO Unavailable Philip Dumont MD Unavailable [phone] Meredith Carrera PA-C Unavailable [phone] Neil Kent MD Unavailable Juan Pablo Emmanuel MD Unavailable [phone] Audrey Waite PA-C Unavailable [phone] Valery Veronica PA-C Unavailable [phone] Herminia Hatch MD Unavailable Encounter Details Date Type Department Care Team (Late st Contact Info) Description 10/24/2023 [facility] Medical Advice [facility] Gastroenterology Clinic [address] [address] Kenneth Denson Social History Tobacco [...] you attend formerly [facility] or [employer]? 1 to [...] Recorded PHQ-2 Score 0 10/25/2023 [facility] of Occupat ional Health - Occupational Stress [...] exercise at this level? 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 Gender Identity Female 03/02/2021 5:45 PM CDT Sexual Orientation Straight 02/28/2020 12 :51 AM CDT documented as of this encounter Plan of Treatment Upcoming Encounters Date Type Department Care Team (Late st Contact Info) Description 10/23/2024 9:30 AM CDT Office Visit [facility] Neurology [address], [address] [place] [address] [place] [address] [place] 547487 Johnny Penn MD [address] [place] [address] documented as of this encounter Visit Diagnoses Not on filedocumented in this encounter Additional Health Concerns Infection Onset Date Last Indicated Resolved Time Rule Out COVID-19 12/26/2023 12/26/2023 12/26/2023 9:50 AM CDT Rule Out COVID-19 04/09/2024 04/09/2024 04/10/2024 6:48 PM CDT Assessment Noted Time PHQ-9 Depression Total Score: 4 06/20/20 23 8:40 AM REHABILITATION CONSTRUCTION SPECIALIST documented as of this encounter Care Teams Film Processing Shift Supervisor Relationship Specialty Start Date End Date Esha Grimm PA-C [address] [place] [address] PCP - General Family Medicine 05/04/23 Diana Desir, [facility] [address] [place], [place] [address] Pharmacist Pharmacist 04/17/21 Rain Galaviz PA-C [address] [place] [address] [address] [place] [address] Physician Day Trader Dermatology 04/28/21 Tavia Wyatt MD [address] [place] [address] [address] [place] [address] [phone] Dermatology 07/14/21 Erica Farrell APRN BILLING COORDINATOR [address] [facility] [address] [place], [place] 299[address] Nurse Practitioner Cardiovascular Disease 09/09/21 Rich Barrett MD [address] 294[address] Physician Ophthalmology 01/21/22 Neil Kent MD 500 [place], [place] 9[address]35 Dermatology 02/24/22 Diana Desir, [facility] [address] [place], [place] 488946 Assigned MTM Pharmacist 04/07/22 Livan Sharif MD [address], [facility] [address] [place] 978075 Cardiovascular Disease 05/14/22 Catherine Cm MD [address] [facility] [address] [place] 7[address]055 Cardiovascular Disease 07/21/22 Valery Veronica, PA-C 9[address] [place], [place] 870[address] Physician Day Trader Dermatology 07/21/22 Brea Quinn APRN BILLING COORDINATOR 500 [place], [place] 405655 Nurse Practitioner Dermatology 09/21/22 Brea Quinn APRN BILLING COORDINATOR [address] [place] [address] 506182 Assigned Surgical Provider 10/09/22 05/01/24 [place] [address] [address] [facility] [address] [place], [place] 214887 Assigned Musculoskeletal Provider 10/09/22 05/01/24 Alfonso Renteria MD [address] [facility] 200 [place], [place] [address] Assigned Neuroscience Provider 04/02/23 Radha Lomeli APRN BILLING COORDINATOR [address] [facility] [address] [address] [place] [address] Assigned Heart and Vascular Provider 05/28/23 Jelena David OD [address] [place] [address] MD Ophthalmology 06/15/23 Pao Joseph, VJ Personal Advocate & Liaison (PAL) Nurse 08/01/23 11/07/23 Esha Grimm PA-C [address] [place] [phone] Assigned PCP 07/16/23 Valery Veronica PA-C [address] [place] [address] 450855 Physician Day Trader Dermatology 09/19/23 Rey Tay MD [address] [place] [address] 928535 Gastroenterology 09/20/23 Rocky Zepeda DO [address] [place] [address] 102435 Physician Gastroenterology 09/20/23 Philip Dumont MD [address] [place] [address] 525555 Physician Ophthalmology 09/22/23 Meredith Carrera PA-C [address] [place] [address] 196105 Assigned Gastroenterology Provider 11/01/23 Neil Kent MD [address] [address] Dermatology 11/02/23 [place] [address] 374027 Neurological Surgery 12/26/23 Audrey Waite PA-C 500 [place] [address] Physician Day Trader Dermatology 02/28/24 Valery Veronica PA-C 481972 [address] [place] [address] Physician Day Trader Dermatology 04/10/24 Herminia Hatch MD [facility]5 [place] [address] Assigned Rheumatology Provider 07/02/24 documented as of this encounter
--- OUTSIDE RECORDS SUMMARY | 2024-08-28 18:24 | XMS_ITS | Encounter Summary ---
Author Organization [place] Address [address] [place] [address] Care Team Providers Care Litigation Associate Name Role Phone Diana Desir [facility] Unavailable [phone] Rain Galaviz PA-C Unavailable Tavia Wyatt MD Unavailable Erica Farrell APRN SENIOR NET DEVELOPER ARCHITECT Unavailable Rich Barrett MD Unavailable [phone] Neil Kent MD Unavailable Diana Desir [facility] Unavailable Livan Sharif MD Unavailable Catherine Cm MD Unavailable + Valery Veronica PA-C Unavailable Brea Quinn DOUBLE CORNER CUTTER SENIOR NET DEVELOPER ARCHITECT Unavailable [phone] Brea Quinn DOUBLE CORNER CUTTER SENIOR NET DEVELOPER ARCHITECT Unavailable [phone] Jose Francisco Johnson MD Unavailable Alfonso Renteria MD Unavailable [phone] Esha Grimm PA-C Primary Care Provider [phone] Radha Lomeli APRN SENIOR NET DEVELOPER ARCHITECT Unavailable Jelena David OD Unavailable Esha Grimm PA-C Unavailable [phone] Valery Veronica PA-C Unavailable [phone] Rey Tay MD Unavailable Rocky Zepeda DO Unavailable Philip Dumont MD Unavailable [phone] Meredith Carrera PA-C Unavailable [phone] Neil Kent MD Unavailable Juan Pablo Emmanuel MD Unavailable [phone] Audrey Waite PA-C Unavailable [phone] Valery Veronica PA-C Unavailable Herminia Hatch MD Unavailable Encounter Details Date Type Department Care Team (Late st Contact Info) Description 11/16/2023 [facility] [place] [address] [address] Asiya Reddy, RN Social History [...] PHQ-2 Score 0 10/25/2023 [facility] - Occupational Stress Questionnaire Answer [...] exercise at this level? 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 Gender Identity Female 03/02/2021 5:45 PM CDT Sexual Orientation Straight 02/28/2020 12 :51 AM CDT documented as of this encounter Plan of Treatment Upcoming Encounters Date Type Department Care Team (Late st Contact Info) Description 10/23/2024 9:30 AM CDT Office Visit [facility] Neurology [address], [address] [place] [address] [place] [address] [place] [address] Johnny Penn MD [address] [place] [address] documented as of this encounter Visit Diagnoses Not on filedocumented in this encounter Additional Health Concerns Infection Onset Date Last Indicated Resolved Time Rule Out COVID-19 12/26/2023 12/26/2023 12/26/2023 9:50 AM CDT Rule Out COVID-04/09/2024 04/09/2024 04/10/2024 6:48 PM CDT Assessment Noted Time PHQ-9 Depression Total Score: 4 06/20/20 23 8:40 AM HOUSEHOLD ASSISTANT documented as of this encounter Care Teams Litigation Associate Relationship Specialty Start Date End Date Esha Grimm PA-C [address] [place] [address] PCP - General Family Medicine 05/04/23 Diana Desir, [facility] [address] [place] [address] Pharmacist Pharmacist 04/17/21 Rain Galaviz PA-C [address] [place] [address] [address] [place] [address] Physician Missile Tracking Technician Dermatology 04/28/21 Tavia Wyatt MD [address] [place] [address] [address] [facility] [place] [address] Dermatology 07/14/21 Erica Farrell APRN SENIOR NET DEVELOPER ARCHITECT [address] [facility] [address] [place] [address] Nurse Practitioner Cardiovascular Disease 09/09/21 Rich Barrett MD 516 [facility] 9A [place], [place] 6347[address] Physician Ophthalmology 01/21/22 Neil Kent MD [address] [place] [address] 671385 Dermatology 02/24/22 [facility] 3033 [place] [address] Assigned MTM Pharmacist 04/07/22 Livan Sharif MD [address], [facility] [address] [place] [address] Cardiovascular Disease 05/14/22 Catherine Cm MD [address] [facility] [address] [place], [place] [address] Cardiovascular Disease 07/21/22 Valery Veronica, PA-C 909 [place], [place] 448665 Physician Missile Tracking Technician Dermatology 07/21/22 Brea Quinn APRN SENIOR NET DEVELOPER ARCHITECT 500 [place], [place] 895225 Nurse Practitioner Dermatology 09/21/22 Brea Quinn APRN SENIOR NET DEVELOPER ARCHITECT 6401 [place] [address] Assigned Surgical Provider 10/09/22 05/01/24 [place] [address] [address] [facility] 300 [place] [address] Assigned Musculoskeletal Provider 10/09/22 05/01/24 Alfonso Renteria MD [address] [facility] 200 [place], [place] 011816 Assigned Neuroscience Provider 04/02/23 Radha Lomeli, DOUBLE CORNER CUTTER SENIOR NET DEVELOPER ARCHITECT [address] [place], [place] 221605 Assigned Heart and Vascular Provider 05/28/23 [place]elena David OD [address] [place] [address] MD Ophthalmology 06/15/23 Esha Grimm PA-C [address] [place] [phone] Assigned PCP 07/16/23 Valery Veronica PA-C [address] [place] [address] 587175 Physician Missile Tracking Technician Dermatology 09/19/23 Rey Tay MD [address] [place] [address] 316005 Gastroenterology 09/20/23 Rocky Zepeda DO [address] [place] [address] 804175 Physician Gastroenterology 09/20/23 Philip Dumont MD [address] [place] [address] 564975 Physician Ophthalmology 09/22/23 Meredith Carrera PA-C [address] [place] [address] 852505 Assigned Gastroenterology Provider 11/01/23 Neil Kent MD [address] [phone] Dermatology 11/02/23 [place] [address] [address] Neurological Surgery 12/26/23 Audrey Waite PA-C 500 [place] [address] Physician Missile Tracking Technician Dermatology 02/28/24 Valery Veronica PA-C [address] [place] [address] Physician Missile Tracking Technician Dermatology 04/10/24 Herminia Hatch MD [facility]5 [place], [place] 48[address] Assigned Rheumatology Provider 07/02/24 documented as of this encounter
--- OUTSIDE RECORDS SUMMARY | 2024-08-28 18:24 | XMS_ITS | Encounter Summary ---
Author Organization [place] Address [address] [place] [address] Care Team Providers Care Residential Youth Counselor Name Role Phone Diana Desir [facility] Unavailable [phone] Rain Galaviz PA-C Unavailable Tavia Wyatt MD Unavailable Erica Farrell APRN OVEN TECHNICIAN Unavailable Rich Barrett MD Unavailable [phone] Neil Kent MD Unavailable Diana Desir [facility] Unavailable Livan Sharif MD Unavailable Catherine Cm MD Unavailable + Valery Veronica PA-C Unavailable Brea Quinn RESOURCE MANAGER OVEN TECHNICIAN Unavailable [phone] Brea Quinn RESOURCE MANAGER OVEN TECHNICIAN Unavailable Jose Francisco Johnson MD Unavailable Alfonso Renteria MD Unavailable [phone] Esha Grimm PA-C Primary Care Provider [phone] Radha Lomeli APRN OVEN TECHNICIAN Unavailable Jelena David OD Unavailable Pao Joseph RN Unavailable Unavailable Esha Grimm PA-C Unavailable [phone] Valery Veronica PA-C Unavailable [phone] Rey Tay MD Unavailable Rocky Zepeda DO Unavailable Philip Dumont MD Unavailable [phone] Meredith Carrera PA-C Unavailable [phone] Neil Kent MD Unavailable Juan Pablo Emmanuel MD Unavailable [phone] Audrey Waite PA-C Unavailable [phone] Valery Veronica PA-C Unavailable Herminia Hatch MD Unavailable Encounter Details Date Type Department Care Team (Late st Contact Info) Description 10/25/2023 [facility] [place] Medical Advice [facility] Gastroenterology Clinic [address] [address] [place] Social History Tobacco [...] week 03/10/2023 How often do you attend [facility] or rastafarian services? 1 to 4 times [...] exercise at this level? 30 min 03/10/2023 [place] Depression Scale Answer Date Recorded [place] Depression Score 5 01/14/2021 Last EPDS Self [...] PM CDT Legal Sex Female 4:13 AM PLANT MANAGER Gender Identity Female 03/02/2021 5:45 PM CDT Sexual Orientation Straight 02/28/2020 12 :51 AM CDT documented as of this encounter Plan of Treatment Upcoming Encounters Date Type Department Care Team (Late st Contact Info) Description 10/23/2024 9:30 AM CDT Office Visit [facility] Neurology [address], [address] [place] [address] [place] [address] [place] 367367 Johnny Penn MD [address] [place] [address] documented as of this encounter Visit Diagnoses Not on filedocumented in this encounter Additional Health Concerns Infection Onset Date Last Indicated Resolved Time Rule Out COVID-19 12/26/2023 12/26/2023 12/26/2023 9:50 AM CDT Rule Out COVID-19 04/09/2024 04/09/2024 04/10/2024 6:48 PM CDT Assessment Noted Time PHQ-9 Depression Total Score: 4 06/20/20 23 8:40 AM PLANT MANAGER documented as of this encounter Care Teams Residential Youth Counselor Relationship Specialty Start Date End Date Esha Grimm PA-C [address] [place] [address] PCP - General Family Medicine 05/04/23 Diana Desir, [facility] [address] [place], [place] [address] Pharmacist Pharmacist 04/17/21 Rain Galaviz PA-C [address] [place] [address] [address] [place] [address] Physician Marketing Senior Recruiter Dermatology 04/28/21 Tavia Wyatt MD [address] [place] [address] [address] [place] [address] [phone] Dermatology 07/14/21 Erica Farrell APRN OVEN TECHNICIAN 6405 [facility] [address] [place], [place] 128315 Nurse Practitioner Cardiovascular Disease 09/09/21 Rich Barrett MD 516 [facility] 9A [place], [place] 7[address] Physician Ophthalmology 01/21/22 Neil Kent MD 500 [place], [place] 575865 Dermatology 02/24/22 Diana Desir, [facility] 3033 [place] [address] Assigned MTM Pharmacist 04/07/22 Livan Sharif MD [address], [facility] [address] [place] 503645 Cardiovascular Disease 05/14/22 Catherine Cm MD [address] [facility] [address] [place] 2[address]15 Cardiovascular Disease 07/21/22 Valery Veronica, PA-C [address]09 [place], [place] 906315 Physician Marketing Senior Recruiter Dermatology 07/21/22 Brea Quinn APRN OVEN TECHNICIAN 500 [place], [place] 434175 Nurse Practitioner Dermatology 09/21/22 Brea Quinn APRN OVEN TECHNICIAN [address] [place] [address] 845042 Assigned Surgical Provider 10/09/22 05/01/24 [place] [address] [address] [facility] 300 [place], [place] 474557 Assigned Musculoskeletal Provider 10/09/22 05/01/24 Alfonso Renteria MD [address] [facility] 200 [place], [place] 271866 Assigned Neuroscience Provider 04/02/23 Radha Lomeli APRN OVEN TECHNICIAN 6405 [facility] [place] [address] [place] [address] Assigned Heart and Vascular Provider 05/28/23 Jelena David OD [address] [facility] [place] [address] MD Ophthalmology 06/15/23 Pao Joseph, VJ Personal Advocate & Liaison (PAL) Nurse 08/01/23 11/07/23 Esha Grimm PA-C [address] [place] [phone] Assigned PCP 07/16/23 Valery Veronica PA-C [address] [place] [address] 731105 Physician Marketing Senior Recruiter Dermatology 09/19/23 Rey Tay MD [address] [place] [address] 189705 Gastroenterology 09/20/23 Rocky Zepeda DO [address] [place] [address] 562525 Physician Gastroenterology 09/20/23 Philip Dumont MD [address] [place] [address] 714275 Physician Ophthalmology 09/22/23 Meredith Carrera PA-C [address] [place] [address] 476935 Assigned Gastroenterology Provider 11/01/23 Neil Kent MD [address] [place] [address] Dermatology 11/02/23 [place] [address] 591557 Neurological Surgery 12/26/23 Audrey Waite PA-C 500 [place] [address] Physician Marketing Senior Recruiter Dermatology 02/28/24 Valery Veronica PA-C 753701 [address], [place] [address] Physician Marketing Senior Recruiter Dermatology 04/10/24 Herminia Hatch MD [facility]5 [place] [address] Assigned Rheumatology Provider 07/02/24 documented as of this encounter
--- OUTSIDE RECORDS SUMMARY | 2024-08-28 18:24 | XMS_ITS | Encounter Summary ---
Author Organization [place] Address [address] [place] [address] Care Team Providers Care Relief Mate Name Role Phone Diana Desir [facility] Unavailable Rain Galaviz PA-C Unavailable Tavia Wyatt MD Unavailable Erica Farrell APRN FISHER SWORDFISH Unavailable Rich Barrett MD Unavailable [phone] Neil Kent MD Unavailable Diana Desir [facility] Unavailable [phone] Livan Sharif MD Unavailable Catherine Cm MD Unavailable + Valery Veronica PA-C Unavailable Brea Quinn FIRE PREVENTION OFFICER FISHER SWORDFISH Unavailable Brea Quinn FIRE PREVENTION OFFICER FISHER SWORDFISH Unavailable Jose Francisco Johnson MD Unavailable Alfonso Renteria MD Unavailable [phone] Esha Grimm PA-C Primary Care Provider Radha Lomeli APRN FISHER SWORDFISH Unavailable Jelena David OD Unavailable Pao Joseph RN Unavailable Unavailable Esha Grimm PA-C Unavailable [phone] Valery Veronica PA-C Unavailable [phone] Rey Tay MD Unavailable Rocky Zepeda DO Unavailable Philip Dumont MD Unavailable [phone] Meredith Carrera PA-C Unavailable [phone] Neil Kent MD Unavailable Juan Pablo Emmanuel MD Unavailable [phone] Audrey Waite PA-C Unavailable [phone] Valery Veronica PA-C Unavailable Herminia Hatch MD Unavailable Encounter Details Date Type Department Care Team (Late st Contact Info) Description 10/26/2023 [facility] [place] Medical Advice [facility] Gastroenterology Clinic [address] [address] [place] Social History Tobacco [...] you attend formerly [facility] or rastafari services? 1 to 4 times [...] exercise at this level? 30 min 03/10/2023 [place] Depression Scale Answer Date Recorded [place] Depression Score 5 01/14/2021 Last EPDS Self [...] PM CDT Legal Sex Female 4:13 AM SUPPLIER DEVELOPMENT MANAGER Gender Identity Female 03/02/2021 5:45 PM CDT Sexual Orientation Straight 02/28/2020 12 :51 AM CDT documented as of this encounter Plan of Treatment Upcoming Encounters Date Type Department Care Team (Late st Contact Info) Description 10/23/2024 9:30 AM CDT Office Visit [facility] Neurology [address], [address] [place] [address] [place] [address] [address] [place] 030457 Johnny Penn MD [address] [place] [address] documented as of this encounter Visit Diagnoses Not on filedocumented in this encounter Additional Health Concerns Infection Onset Date Last Indicated Resolved Time Rule Out COVID-19 12/26/2023 12/26/2023 12/26/2023 9:50 AM CDT Rule Out COVID-19 04/09/2024 04/09/2024 04/10/2024 6:48 PM CDT Assessment Noted Time PHQ-9 Depression Total Score: 4 06/20/20 23 8:40 AM SUPPLIER DEVELOPMENT MANAGER documented as of this encounter Care Teams Relief Mate Relationship Specialty Start Date End Date Esha Grimm PA-C [address] [place] [address] PCP - General Family Medicine 05/04/23 Diana Desir, [facility] [address] [place], [place] [address] Pharmacist Pharmacist 04/17/21 Rain Galaviz PA-C [address] [place] [address] [address] [place] [address] Physician Vice President Of Procurement Dermatology 04/28/21 Tavia Wyatt MD [address] [place] [address] [address] [place] [address] [phone] Dermatology 07/14/21 Erica Farrell APRN FISHER SWORDFISH 6[address] [facility] [address] [place], [place] 678145 Nurse Practitioner Cardiovascular Disease 09/09/21 Rich Barrett MD 516 [facility] 9A [place], [place] 794075 Physician Ophthalmology 01/21/22 Neil Kent MD 500 [place], [place] 901815 Dermatology 02/24/22 Diana Desir, [facility] 3033 [place] [address] Assigned MTM Pharmacist 04/07/22 Livan Sharif MD [address], [facility] [address] [place] [address] Cardiovascular Disease 05/14/22 Catherine Cm MD [address] [facility] [address] [place] 9[address]35 Cardiovascular Disease 07/21/22 Valery Veronica, PA-C 909 [place], [place] 615105 Physician Vice President Of Procurement Dermatology 07/21/22 Brea Quinn APRN FISHER SWORDFISH 500 [place], [place] 545865 Nurse Practitioner Dermatology 09/21/22 Brea Quinn APRN FISHER SWORDFISH [address] [place] [address] 810472 Assigned Surgical Provider 10/09/22 05/01/24 [place] [address] [address] [facility] 300 [place], [place] 916277 Assigned Musculoskeletal Provider 10/09/22 05/01/24 Alfonso Renteria MD [address] [facility] 200 [place], [place] 930646 Assigned Neuroscience Provider 04/02/23 Radha Lomeli APRN FISHER SWORDFISH 6405 [facility] [place] [address] [place] [address] Assigned Heart and Vascular Provider 05/28/23 Jelena David OD [address] [place] [address] MD Ophthalmology 06/15/23 Pao Joseph, VJ Personal Advocate & Liaison (PAL) Nurse 08/01/23 11/07/23 Esha Grimm PA-C [address] [place] [phone] Assigned PCP 07/16/23 Valery Veronica PA-C [address] [place] [address] 700315 Physician Vice President Of Procurement Dermatology 09/19/23 Rey Tay MD [address] [place] [address] 676435 Gastroenterology 09/20/23 Rocky Zepeda DO [address] [place] [address] 631735 Physician Gastroenterology 09/20/23 Philip Dumont MD [address] [place] [address] 379175 Physician Ophthalmology 09/22/23 Meredith Carrera PA-C [address] [place] [address] 325965 Assigned Gastroenterology Provider 11/01/23 Neil Kent MD [address] [place] [address] Dermatology 11/02/23 [place] [address] 008167 Neurological Surgery 12/26/23 Audrey Waite PA-C 500 [place] [address] Physician Vice President Of Procurement Dermatology 02/28/24 Valery Veronica PA-C 690146 [place], [place] [address] Physician Vice President Of Procurement Dermatology 04/10/24 Herminia Hatch MD [facility]5 [place] [address] Assigned Rheumatology Provider 07/02/24 documented as of this encounter
--- OUTSIDE RECORDS SUMMARY | 2024-08-28 18:24 | XMS_ITS | Encounter Summary ---
Author Organization [facility] Address [address] [place] [address] Care Team Providers Care Instructional Technology Coordinator Name Role Phone Lita Oseguera Unavailable Unavailable Marija Edgar APRN WELL SITE DRILLING ENGINEER Primary Care Provider + Chanelle Mccann APRN CNM Unavailab le Kyara De La Fuente RN Unavailable [phone] Marija Edgar APRN WELL SITE DRILLING ENGINEER Unavailable Mynor Broussard MD Unavailable [phone] Keisha Dotson MD Unavailable Mary Mejia Unavailable Unavailable Stacey Briones ACCELERATOR OPERATOR Unavailable [phone] Lesley Guillermo CHW Unavailable Mary Mejia Unavailable Unavailable Lita Oseguera Unavailable Unavailable Galo Burrell MD Unavailable Unavailable Cristina Wood Unavailable Lesley Guillermo CHW Unavailable Meredith Bedoya Unavailable Unavailable Cristina Wood Unavailable Diana Desir [facility] Unavailable [phone] Ruhland, Rain Lena PA-C Unavailable Summer Lara MD Unavailable [phone] Summer Lara MD Unavailable [phone] Summer Lara MD Unavailable [phone] Tavia Wyatt MD Unavailable [phone] Johnny Murilol MD Unavailable +1- Erica Farrell CAN CONVEYOR FEEDER WELL SITE DRILLING ENGINEER Unavailable VikasTeresita H Unavailable Tavia Wyatt MD Unavailable [phone] Diana Desir [facility] Unavailable [phone] Rich Barrett MD Unavailable Neil Kent MD Unavailable Roney Story [facility] Unavailable Erica Farrell APRN WELL SITE DRILLING ENGINEER Unavailable Diana Desir [facility] Unavailable [phone] Jelena David OD Unavailable Galo Burrell MD Unavailable Unavailable Livan Sharif MD Unavailable Livan Sharif MD Unavailable + Catherine Cm MD Unavailable + Valery Veronica PA-C Unavailable [phone] Catherine Cm MD Unavailable + Johnny Murillo MD Unavailable +1- Brea Quinn CAN CONVEYOR FEEDER WELL SITE DRILLING ENGINEER Unavailable +[phone] Brea Quinn CAN CONVEYOR FEEDER WELL SITE DRILLING ENGINEER Unavailable [phone] Jose Francisco Johnson MD Unavailable Livan Sharif MD Unavailable Catherine Cm MD Unavailable + Sydnie Martinez RN Unavailable Unavailable Alfonso Renteria MD Unavailable [phone] Esha Grimm PA-C Primary Care Provider Cheng Todd PA-C Unavailable ArmaniRadha APRN WELL SITE DRILLING ENGINEER Unavailable Jelena David OD Unavailable Pao Joseph RN Unavailable Unavailable Esha Grimm PA-C Unavailable [phone] Valery Veronica PA-C Unavailable Rey Tay MD Unavailable Rocky Zepeda DO Unavailable Philip Dumont MD Unavailable Meredith Carrera PA-C Unavailable Neil Kent MD Unavailable Juan Pablo Emmanuel MD Unavailable Audrey Waite PA-C Unavailable JeremíasValery daomn PA-C Unavailable Herminia Hatch MD Unavailable Encounter Details Date Type Department Care Team (Late st Contact Info) Description 07/10/2020 MyC Medical Advice [facility] [place] [address] [place] [address] Mynor Broussard MD [address] [place] [place] [...] PM CDT Legal Sex Female 4:13 AM SCIENCE TECHNICIANS Gender Identity Female 03/02/2021 5:45 PM CDT Sexual Orientation Straight 02/28/2020 12 :51 AM CDT COVID-19 Exposure Response Date Recorded In the last month, have you been in contact with someone who was confirmed or suspected to have Coronavirus / COVID-19? No / Unsure 06/24/2020 3:01 PM SCIENCE TECHNICIANS documented as of this encounter Plan of Treatment Upcoming Encounters Date Type Department Care Team (Late st Contact Info) Description 10/23/2024 9:30 AM CDT Office Visit [facility] [address], [address] [place] [address] [place] [address] [address] Johnny Penn MD [address] [place] [address] documented as of this encounter Visit Diagnoses Not on filedocumented in this encounter Additional Health Concerns Infection Onset Date Last Indicated Resolved Time Rule Out COVID-19 07/30/2020 07/30/2020 07/30/2020 7:11 PM SCIENCE TECHNICIANS Rule Out COVID-19 08/30/2020 08/30/2020 08/30/2020 5:05 PM SCIENCE TECHNICIANS Rule Out COVID-19 09/24/2020 09/24/2020 09/24/2020 9:24 AM CDT Rule Out COVID-19 11/05/2020 11/05/2020 11/06/2020 1:09 PM CDT Rule Out COVID-19 05/11/2021 05/11/2021 05/13/2021 10:18 AM CDT Rule Out COVID-19 07/13/2021 07/13/2021 07/14/2021 3:04 PM SCIENCE TECHNICIANS Rule Out COVID-19 07/18/2021 07/18/2021 07/20/2021 1:56 PM SCIENCE TECHNICIANS COVID-19 07/18/2021 07/18/2021 08/08/2021 11:3 9 PM SCIENCE TECHNICIANS Rule Out COVID-19 12/18/2021 12/18/2021 12/19/2021 11:34 AM CDT Rule Out COVID-19 02/24/2022 02/24/2022 02/25/2022 1:08 PM CDT Rule Out COVID-19 04/26/2022 04/26/2022 04/26/2022 6:47 AM CDT Rule Out COVID-19 05/17/2022 05/17/2022 05/17/2022 10:20 PM SCIENCE TECHNICIANS Rule Out COVID-19 06/09/2022 06/09/2022 06/09/2022 9:35 AM SCIENCE TECHNICIANS COVID-19 06/09/2022 06/09/2022 06/30/2022 11:4 1 PM SCIENCE TECHNICIANS Rule Out COVID-19 11/10/2022 11/10/2022 11/11/2022 12:17 PM CDT Rule Out COVID-19 03/07/2023 03/07/2023 03/07/2023 1:20 PM CDT Rule Out COVID-19 12/26/2023 12/26/2023 12/26/2023 9:50 AM CDT Rule Out COVID-19 04/09/2024 04/09/2024 04/10/2024 6:48 PM CDT Assessment Noted Time PHQ-9 Depression Total Score: 9 06/25/20 20 7:04 AM SCIENCE TECHNICIANS documented as of this encounter Care Teams Instructional Technology Coordinator Relationship Specialty Start Date End Date Marija Edgar APRN CNP PCP - General Nurse Practitioner 04/30/20 04/14/23 Esha Grimm PA-C [address] [place] [address] PCP - General Family Medicine 05/04/23 Lita Oseguera Personal Advocate & Liaison (PAL) 02/28/20 03/27/23 Chanelle Mccann APRN CNM [address] [address] 200 [place] [address] Assigned OBGYN Provider 05/02/2005/09 Kyara De La Fuente, RN Specialty Program Instructor Neurology 06/04/20 03/05/21 Marija Edgar APRN WELL SITE DRILLING ENGINEER Assigned PCP 06/08/20 04/29/23 Mynor Broussard MD [address] [facility] 500 [place] [address] Assigned Surgical Provider 06/01/20 11/28/21 Keisha Dotson MD 909 [place] [address] Assigned Neuroscience Provider 06/04/20 04/01/23 Mary Mejia Financial Resource Worker 08/07/20 08/21/20 Stacey Briones, ACCELERATOR OPERATOR Lead Program Instructor Primary Care - CC 08/11/2012/30 Lesley Guillermo, W Community Health Worker 08/11/2010/01 Mary Mejia Financial Resource Worker 09/02/20 10/06/20 Lita Oseguera Personal Advocate & Liaison (PAL) Family Medicine 09/10/20 09/21/20 Galo Burrell MD Assigned Heart and Vascular Provider 10/05/20 04/02/22 Cristina Wood Financial Resource Worker 10/07/20 10/14/20 Lesley Guillermo, [facility] Community Health Worker 10/23/2012/30 Meredith Bedoya Financial Resource Worker 10/23/20 11/23/20 Cristina Wood Financial Resource Worker 02/09/21 02/09/21 Diana Desir, [facility] [address] [place], [place] [phone] Pharmacist Pharmacist 04/17/21 Rain Galaviz PA-C [address] [place] [address] [address] [place] [place], [place] [phone] Physician Sensitizer Dermatology 04/28/21 Summer Lara MD [address] [place] [address] [phone] Assigned OBGYN Provider 05/10/2105/23 Summer Lara MD [address] [place] [address] [phone] Assigned OBGYN Provider 05/31/21 2 Summer Lara MD [address] [place] [address] [phone] Assigned OBGYN Provider 05/24/2105/30 Tavia Wyatt MD [address] [place] [address] [phone] Dermatology 07/14/21 Johnny Murillo MD [address] [facility] [address] [place], [place] [address]654 Assigned Musculoskeletal Provider 08/30/21 03/17/22 Erica Farrell APRN WELL SITE DRILLING ENGINEER [address] [facility] [address] [place] [address] Nurse Practitioner Cardiovascular Disease 09/09/21 Teresita Bean [facility] [address] [facility] [address] [place] [phone] Pharmacist Pharmacist 09/24/21 09/29/21 Tavia Wyatt MD [address] [place], [place] 314990 Assigned Surgical Provider 11/29/21 05/07/22 [facility] [address] [place], [place] 006996 Assigned MTM Pharmacist 01/02/22 Rich Barrett MD [address] [facility] [address] [place], [place] [phone] Physician Ophthalmology 01/21/22 Neil Kent MD 500 [place], [place] [phone] Dermatology 02/24/22 Roney Story DPM 278[address] [facility] [address] [place], [place] 508[address] Assigned Musculoskeletal Provider 03/20/22 08/13/22 Erica Farrell APRN WELL SITE DRILLING ENGINEER 1700 [place] [address] Assigned Heart and Vascular Provider 04/03/22 04/16/22 Diana Desir, [facility] [address] [place] [address] Assigned MTM Pharmacist 04/07/22 Jelena David OD [address] [facility] [address] Assigned Surgical Provider 05/08/22 10/08/22 Galo Burrell MD Assigned Heart and Vascular Provider 04/17/22 06/11/22 Livan Sharif MD [address] [place] [address] Cardiovascular Disease 05/14/22 Livan Sharif MD [address], [address] [place] [address] Assigned Heart and Vascular Provider 06/12/22 07/23/22 Catherine Cm MD [address] [place] 4[address]45 Cardiovascular Disease 07/21/22 Valery Veronica, PAUcheC 909 [place] [address] Physician Sensitizer Dermatology 07/21/22 IsCatherine hobbs MD [address] [facility]00 [place] [address] Assigned Heart and Vascular Provider 07/24/22 11/05/22 Johnny Murillo MD [address] [phone] Assigned Musculoskeletal Provider 08/14/22 10/08/22 Brea Quinn APRN WELL SITE DRILLING ENGINEER 500 [place], [place] 968005 Nurse Practitioner Dermatology 09/21/22 Brea Quinn APRN WELL SITE DRILLING ENGINEER 6401 [facility] [place] 04[address]62 Assigned Surgical Provider 10/09/22 05/01/24 [place] [address] 123007 Assigned Musculoskeletal Provider 10/09/22 05/01/24 Livan Sharif MD [address] [facility]00 [place] 065935 Assigned Heart and Vascular Provider 11/06/22 11/12/22 Catherine Cm MD [address] [facility] [place] 877775 Assigned Heart and Vascular Provider 11/13/22 05/27/23 Sydnie Martinez RN Personal Advocate & Liaison (PAL) Family Medicine 03/28/23 07/31/23 Alfonso Renteria MD [address] [facility] [address] 200 [place] [address] Assigned Neuroscience Provider 04/02/23 Cheng Todd PA-C [address] [place] [address] Assigned PCP 04/30/23 07/15/23 Radha Lomeli APRN WELL SITE DRILLING ENGINEER [address] [facility] [address] [place], [place] 454235 Assigned Heart and Vascular Provider 05/28/23 Jelena David OD [address] [facility] [place] [address] Ophthalmology 06/15/23 Pao Joseph, VJ Personal Advocate & Liaison (PAL) Nurse 08/01/23 11/07/23 Esha Grimm PA-C [address] [place] [address] Assigned PCP 07/16/23 Valery Veronica PA-C [address] [place] [address] 486985 Physician Sensitizer Dermatology 09/19/23 Rey Tay MD [address] [place] [address] 376155 Gastroenterology 09/20/23 Rocky Zepeda DO [address] [place] [address] 056955 Physician Gastroenterology 09/20/23 Philip Dumont MD 516 [place] [address] Physician Ophthalmology 09/22/23 Meredith Carrera PA-C 909 [place] [address] Assigned Gastroenterology Provider 11/01/23 Neil Kent MD [address] [address] Dermatology 11/02/23 [place] [address] 774317 Neurological Surgery 12/26/23 Audrey Waite PA-C [address] [place] [address] Physician Sensitizer Dermatology 02/28/24 Valery Veronica PA-C [address] [place] [address] Physician Sensitizer Dermatology 04/10/24 Herminia Hatch MD [employer]5 [place] [address] Assigned Rheumatology Provider 07/02/24 documented as of this encounter
--- OUTSIDE RECORDS SUMMARY | 2024-08-28 18:24 | XMS_ITS | Encounter Summary ---
Author Organization [facility] Address [address] [place] [address] Care Team Providers Care Cloth Colorer Name Role Phone Lita Oseguera Unavailable Unavailable Marija Edgar APRN DRAWSTRING KNOTTER Primary Care Provider + Chanelle Mccann APRN CNM Unavailab le Kyaar De La Fuente RN Unavailable [phone] Marija Edgar APRN DRAWSTRING KNOTTER Unavailable [phone] Mynor Broussard MD Unavailable [phone] Keisha Dotson MD Unavailable Mary Mejia Unavailable Unavailable Stacey Briones LOCOMOTIVE PIPE FITTER Unavailable Lesley Guillermo CHW Unavailable Mary Mejia Unavailable Unavailable Lita Oseguera Unavailable Unavailable Galo Burrell MD Unavailable Unavailable Cristina Wood Unavailable Lesley Guillermo CHW Unavailable Meredith Bedoya Unavailable Unavailable Cristina Wood Unavailable Diana Desir [facility] Unavailable Ruhland, Rain Lena PA-C Unavailable Summer Lara MD Unavailable [phone] Summer Lara MD Unavailable [phone] Summer Lara MD Unavailable [phone] Tavia Wyatt MD Unavailable [phone] Johnny Murillo MD Unavailable +1- Erica Farrell PRESERVATIVE FILLER MACHINE OPERATOR DRAWSTRING KNOTTER Unavailable VikasTeresita H Unavailable Tavia Wyatt MD Unavailable [phone] Diana Desir [facility] Unavailable [phone] Rich Barrett MD Unavailable Neil Kent MD Unavailable Roney Story [facility] Unavailable Erica Farrell APRN DRAWSTRING KNOTTER Unavailable Diana Desir [facility] Unavailable [phone] Jelena David OD Unavailable Galo Burrell MD Unavailable Unavailable Livan Sharif MD Unavailable Livan Sharif MD Unavailable + Catherine Cm MD Unavailable + Valery Veronica PA-C Unavailable [phone] Catherine Cm MD Unavailable + Johnny Murillo MD Unavailable +1- Brea Quinn PRESERVATIVE FILLER MACHINE OPERATOR DRAWSTRING KNOTTER Unavailable +1-0 Brea Quinn PRESERVATIVE FILLER MACHINE OPERATOR DRAWSTRING KNOTTER Unavailable [phone] Jose Francisco Johnson MD Unavailable Livan Sharif MD Unavailable Catherine Cm MD Unavailable + Sydnie Martinez RN Unavailable Unavailable Alfonso Renteria MD Unavailable [phone] Esha Grimm PA-C Primary Care Provider Cheng Todd PA-C Unavailable ArmaniRadha APRN DRAWSTRING KNOTTER Unavailable Jelena David OD Unavailable Pao Joseph RN Unavailable Unavailable Esha Grimm PA-C Unavailable [phone] Valery Veronica PA-C Unavailable [phone] Rey Tay MD Unavailable Rocky Zepeda DO Unavailable Philip Dumont MD Unavailable Meredith Carrera PA-C Unavailable Neil Kent MD Unavailable Juan Pablo Emmanuel MD Unavailable Audrey Waite PA-C Unavailable [phone] JeremíasValery damon PA-C Unavailable Herminia Hatch MD Unavailable Encounter Details Date Type Department Care Team (Late st Contact Info) Description 07/17/2020 MyC Medical Advice [facility] Ep[facility]psy [facility] [address], [address] [place] [address] Keisha Dotson MD [address] [place] [address] Social History Tobacco Use Types [...] PM CDT Legal Sex Female 4:13 AM DIANETICIST Gender Identity Female 03/02/2021 5:45 PM CDT Sexual Orientation Straight 02/28/2020 12 :51 AM CDT COVID-19 Exposure Response Date Recorded In the last month, have you been in contact with someone who was confirmed or suspected to have Coronavirus / COVID-19? No / Unsure 06/24/2020 3:01 PM DIANETICIST documented as of this encounter Miscellaneous Notes * Telephone Encounter - Kyara De La Fuente RN - 07/23/2020 1:41 PM CST Patient contacted the office by Cinem[facility] to report intolerability of levetiracetam. She stayed [...] her shewouldn't need medication her whole life. ETICIST documented in this encounter Plan of Treatment Upcoming Encounters Date Type Department Care Team (Late st Contact Info) Description 10/23/2024 9:30 AM CDT Office Visit [facility] Neu[facility] - [address], [address] [place] [address] [place] [address] [place] [address] Johnny Penn MD [address] [place], [place] 98[address] documented as of this encounter Visit Diagnoses Not on filedocumented in this encounter Additional Health Concerns Infection Onset Date Last Indicated Resolved Time Rule Out COVID-19 07/30/2020 07/30/2020 07/30/2020 7:11 PM DIANETICIST Rule Out COVID-19 08/30/2020 08/30/2020 08/30/2020 5:05 PM DIANETICIST Rule Out COVID-19 09/24/2020 09/24/2020 09/24/2020 9:24 AM CDT Rule Out COVID-19 11/05/2020 11/05/2020 11/06/2020 1:09 PM CDT Rule Out COVID-19 05/11/2021 05/11/2021 05/13/2021 10:18 AM CDT Rule Out COVID-19 07/13/2021 07/13/2021 07/14/2021 3:04 PM DIANETICIST Rule Out COVID-19 07/18/2021 07/18/2021 07/20/2021 1:56 PM DIANETICIST COVID-19 07/18/2021 07/18/2021 08/08/2021 11:3 9 PM DIANETICIST Rule Out COVID-19 12/18/2021 12/18/2021 12/19/2021 11:34 AM CDT Rule Out COVID-19 02/24/2022 02/24/2022 02/25/2022 1:08 PM CDT Rule Out COVID-19 04/26/2022 04/26/2022 04/26/2022 6:47 AM CDT Rule Out COVID-19 05/17/2022 05/17/2022 05/17/2022 10:20 PM DIANETICIST Rule Out COVID-19 06/09/2022 06/09/2022 06/09/2022 9:35 AM DIANETICIST COVID-19 06/09/2022 06/09/2022 06/30/2022 11:4 1 PM DIANETICIST Rule Out COVID-19 11/10/2022 11/10/2022 11/11/2022 12:17 PM CDT Rule Out COVID-19 03/07/2023 03/07/2023 03/07/2023 1:20 PM CDT Rule Out COVID-19 12/26/2023 12/26/2023 12/26/2023 9:50 AM CDT Rule Out COVID-19 04/09/2024 04/09/2024 04/10/2024 6:48 PM CDT Assessment Noted Time PHQ-9 Depression Total Score: 9 06/25/20 20 7:04 AM DIANETICIST documented as of this encounter Care Teams Cloth Colorer Relationship Specialty Start Date End Date Marija Edgar APRN DRAWSTRING KNOTTER PCP - General Nurse Practitioner 04/30/20 04/14/23 Esha Grimm PA-C [address] [place] [phone] PCP - General Family Medicine 05/04/23 Lita Oseguera Personal Advocate & Liaison (PAL) 02/28/20 03/27/23 Chanelle Mccann APRN CNM [address] [place] [address] Assigned OBGYN Provider 05/02/2005/09 Kyara De La Fuente, RN Specialty Pump Attendant Neurology 06/04/20 03/05/21 Marija Edgar APRN DRAWSTRING KNOTTER Assigned PCP 06/08/20 04/29/23 Mynor Broussard MD [address] [facility] 500 [place], [place] [address] Assigned Surgical Provider 06/01/20 11/28/21 Keisha Dotson MD 909 [place], [place] 676445 Assigned Neuroscience Provider 06/04/20 04/01/23 Mary Mejia Financial Resource Worker 08/07/20 08/21/20 Stacey Briones, [facility] Lead Pump Attendant Primary Care - CC 08/11/2012/30 Lesley Guillermo, [facility] Community Health Worker 08/11/2010/01 Mary Mejia Financial Resource Worker 09/02/20 10/06/20 Lita Oseguera Personal Advocate & Liaison (PAL) Family Medicine 09/10/20 09/21/20 Galo Burrell MD Assigned Heart and Vascular Provider 10/05/20 04/02/22 Cristina Wood Financial Resource Worker 10/07/20 10/14/20 Lesley Guillermo, [facility] Community Health Worker 10/23/2012/30 Meredith Bedoya Financial Resource Worker 10/23/20 11/23/20 Cristina Wood Financial Resource Worker 02/09/21 02/09/21 Diana Desir, [facility] [address] [place] [address] Pharmacist Pharmacist 04/17/21 Rain Galaviz PA-C [address] [place] [address] [address] [address] Physician Brass Reclaimer Dermatology 04/28/21 Summer Lara MD [address] [place] [address] Assigned OBGYN Provider 05/10/2105/23 Summer Lara MD [address] [place] [address] Assigned OBGYN Provider 05/31/21 Summer Lara MD [address] [place] [address] Assigned OBGYN Provider 05/24/2105/30 Tavia Wyatt MD [address] [place] [address] Dermatology 07/14/21 Johnny Murillo MD [facility] [facility] [address] [place] [address] Assigned Musculoskeletal Provider 08/30/21 03/17/22 Erica Farrell APRN DRAWSTRING KNOTTER [address] [facility] [address] [place] [address] Nurse Practitioner Cardiovascular Disease 09/09/21 Teresita Bean [facility] [address] [place] [address] Pharmacist Pharmacist 09/24/21 09/29/21 Tavia Wyatt MD [address] [place] [address], [place] [address] Assigned Surgical Provider 11/29/21 05/07/22 Diana Desir, [facility] [address] [place] [address] Assigned MTM Pharmacist 01/02/22 Rich Barrett MD [address] [address] Physician Ophthalmology 01/21/22 Neil Kent MD 500 [place] [address] Dermatology 02/24/22 Roney Story DPM [address] [facility] [address] [place] [address] Assigned Musculoskeletal Provider 03/20/22 08/13/22 Erica Farrell APRN DRAWSTRING KNOTTER 1700 [place] [address] Assigned Heart and Vascular Provider 04/03/22 04/16/22 Diana Desir, [facility] [address] [place] [address] Assigned MTM Pharmacist 04/07/22 Jelena David OD [address] [place] [address] [place] [address] Assigned Surgical Provider 05/08/22 10/08/22 Galo Burrell MD Assigned Heart and Vascular Provider 04/17/22 06/11/22 Livan Sharif MD [address], [facility] [address] [place] [address]38[address] Cardiovascular Disease 05/14/22 Livan Sharif MD [address], [facility]00 [place] 484615 Assigned Heart and Vascular Provider 06/12/22 07/23/22 Catherine Cm MD [address] [facility]00 [place] 191075 Cardiovascular Disease 07/21/22 Valery Veronica PA-C [address] [place] [address] 875855 Physician Brass Reclaimer Dermatology 07/21/22 Catherine Cm MD [address] [facility]00 [place] 942605 Assigned Heart and Vascular Provider 07/24/22 11/05/22 Johnny Murillo MD [address] [place] [address] [phone] Assigned Musculoskeletal Provider 08/14/22 10/08/22 Brea Quinn APRN DRAWSTRING KNOTTER [address] [place] [address] 000435 Nurse Practitioner Dermatology 09/21/22 rBea Quinn APRN DRAWSTRING KNOTTER [address] [place] [address] [place] 076672 Assigned Surgical Provider 10/09/22 05/01/24 [place] [address] [place] [address] Assigned Musculoskeletal Provider 10/09/22 05/01/24 Livan Sharif MD [address] [facility] [address] [place] [address] Assigned Heart and Vascular Provider 11/06/22 11/12/22 Catherine Cm MD [address] [facility] [address] [place] [address] Assigned Heart and Vascular Provider 11/13/22 05/27/23 Sydnie Martinez RN Personal Advocate & Liaison (PAL) Family Medicine 03/28/23 07/31/23 Alfonso Renteria MD 5775 [facility] 200 [place] [address] Assigned Neuroscience Provider 04/02/23 Cheng Todd PA-C [address] [place] [address] [phone] Assigned PCP 04/30/23 07/15/23 Radha Lomeli APRN DRAWSTRING KNOTTER [address] [place] 010485 Assigned Heart and Vascular Provider 05/28/23 Jelena David OD [address] [facility] [address] MD Ophthalmology 06/15/23 Pao Joseph, RN Personal Advocate & Liaison (PAL) Nurse 08/01/23 11/07/23 Esha Grimm PA-C [address] [place] [address] Assigned PCP 07/16/23 Valery Veronica PA-C [address] [place] [address] 897915 Physician Brass Reclaimer Dermatology 09/19/23 Rey Tay MD [address] [place] [address] [phone] Gastroenterology 09/20/23 Rocky Zepeda DO [address] [place] [address] 162175 Physician Gastroenterology 09/20/23 Philip Dumont MD [address] [place] [address] 995905 Physician Ophthalmology 09/22/23 Meredith Carrera PA-C [address] [place] [address] 857155 Assigned Gastroenterology Provider 11/01/23 Neil Kent MD [address] 234980 Dermatology 11/02/23 [place] [address] [place] [address] Neurological Surgery 12/26/23 uAdrey Waite PA-C 500 [place] [address] Physician Brass Reclaimer Dermatology 02/28/24 Valery Veronica PA-C [address] [place] [address] Physician Brass Reclaimer Dermatology 04/10/24 Herminia Hatch MD [address] [place] [address] [phone] Assigned Rheumatology Provider 07/02/24 documented as of this encounter
--- OUTSIDE RECORDS SUMMARY | 2024-08-28 18:24 | XMS_ITS | Encounter Summary ---
Author Organization [place] Address [address] [place] [address] Care Team Providers Care Preliminary School Psychologist Name Role Phone Diana Desir [facility] Unavailable Rain Galaviz PA-C Unavailable Tavia Wyatt MD Unavailable Erica Farrell APRN DISPOSITION CLERK Unavailable Rich Barrett MD Unavailable [phone] Neil Kent MD Unavailable Diana Desir [facility] Unavailable Livan Sharif MD Unavailable Catherine Cm MD Unavailable + Valery Veronica PA-C Unavailable Brea Quinn JUNIOR MECHANICAL ENGINEER DISPOSITION CLERK Unavailable Brea Quinn JUNIOR MECHANICAL ENGINEER DISPOSITION CLERK Unavailable Jose Francisco Johnson MD Unavailable Alfonso Renteria MD Unavailable [phone] Esha Grimm PA-C Primary Care Provider Lomeli, Radha E JUNIOR MECHANICAL ENGINEER DISPOSITION CLERK Unavailable [phone] Jelena David OD Unavailable Esha Grimm PA-C Unavailable [phone] Valery Veronica PA-C Unavailable [phone] Rey Tay MD Unavailable Rocky Zepeda DO Unavailable Philip Dumont MD Unavailable [phone] Meredith Carrera PA-C Unavailable [phone] Neil Kent MD Unavailable Juan Pablo Emmanuel MD Unavailable [phone] Audrey Waite PA-C Unavailable [phone] Valery Veronica PA-C Unavailable Herminia Hatch MD Unavailable Encounter Details Date Type Department Care Team (Late st Contact Info) Description 11/15/2023 [facility] [address] [address] Vivian Grant Social History Tobacco [...] 10/25/2023 [facility] [...] exercise at this level? 30 min 03/10/2023 Kennan Depression Scale Answer Date Recorded Kennan Depression Score 5 01/14/2021 Last EPDS Self [...] PM CDT Legal Sex Female 4:13 AM SECRETARY Gender Identity Female 03/02/2021 5:45 PM CDT Sexual Orientation Straight 02/28/2020 12 :51 AM CDT documented as of this encounter Plan of Treatment Upcoming Encounters Date Type Department Care Team (Late st Contact Info) Description 10/23/2024 9:30 AM CDT Office Visit [facility] Neurology [address], [address] [place] [address] [place] [address] [place] [address] Johnny Penn MD [address] [facility] [place] [address] documented as of this encounter Visit Diagnoses Not on filedocumented in this encounter Additional Health Concerns Infection Onset Date Last Indicated Resolved Time Rule Out COVID-19 12/26/2023 12/26/2023 12/26/2023 9:50 AM CDT Rule Out COVID-19 04/09/2024 04/09/2024 04/10/2024 6:48 PM CDT Assessment Noted Time PHQ-9 Depression Total Score: 4 06/20/20 23 8:40 AM SECRETARY documented as of this encounter Care Teams Preliminary School Psychologist Relationship Specialty Start Date End Date Esha Grimm PA-C [address] [place] [address] PCP - General Family Medicine 05/04/23 Diana Desir, [facility] [address] [place] [address] Pharmacist Pharmacist 04/17/21 Rain Galaviz PA-C [address] [place] [address] [address] [facility] [place] [place] [address] Physician Inside Account Executive Dermatology 04/28/21 Tavia Wyatt MD [address] [place] [address] [address] [facility] [place] [place] [id number] Dermatology 07/14/21 Erica Farrell APRN DISPOSITION CLERK [address] [facility] [address] [place], [place] [address] Nurse Practitioner Cardiovascular Disease 09/09/21 Rich Barrett MD 516 [facility] [address] [place], [place] 8280[address] Physician Ophthalmology 01/21/22 Neil Kent MD 500 [place], [place] 939455 Dermatology 02/24/22 Diana Desir, [facility] 3033 [place] [address] Assigned MTM Pharmacist 04/07/22 Livan Sharif MD [address] [facility] [address], [facility] [address] [place] [address] Cardiovascular Disease 05/14/22 Catherine Cm MD [address] [facility] [address] [place], [place] 359545 Cardiovascular Disease 07/21/22 Valery Veronica, PA-C 909 [place] [address] Physician Inside Account Executive Dermatology 07/21/22 Brea Quinn APRN DISPOSITION CLERK 500 [place] [address] Nurse Practitioner Dermatology 09/21/22 Brea Quinn APRN DISPOSITION CLERK [address] [place] [address] Assigned Surgical Provider 10/09/22 05/01/24 [place] [address] [place] [facility] 300 [place] [address] Assigned Musculoskeletal Provider 10/09/22 05/01/24 Alfonso Renteria MD 5775 [facility] 200 [place] [address] Assigned Neuroscience Provider 04/02/23 Radha Lomeli APRN DISPOSITION CLERK [address] [place], [place] 221305 Assigned Heart and Vascular Provider 05/28/23 Frankie Jelena TempletonSONJA woods [address] [place] [address] MD Ophthalmology 06/15/23 Esha Grimm PA-C [address] [place] [phone] Assigned PCP 07/16/23 Valery Veronica PA-C [address] [place] [address] 997835 Physician Inside Account Executive Dermatology 09/19/23 Rey Tay MD [address] [place] [address] 324155 Gastroenterology 09/20/23 Rocky Zepeda DO [address] [place] [address] 830555 Physician Gastroenterology 09/20/23 Philip Dumont MD [address] [place] [address] 111575 Physician Ophthalmology 09/22/23 Meredith Carrera PA-C [address] [place] [address] 888135 Assigned Gastroenterology Provider 11/01/23 Neil Kent MD [address] 149320 Dermatology 11/02/23 [place] [address] [place] [address] 967277 Neurological Surgery 12/26/23 Audrey Waite PA-C 500 [place] [address] Physician Inside Account Executive Dermatology 02/28/24 Valery Veronica PA-C [address] [place] [address] Physician Inside Account Executive Dermatology 04/10/24 Herminia Hatch MD [facility]5 [place], [place] [id number] Assigned Rheumatology Provider 07/02/24 documented as of this encounter
--- OUTSIDE RECORDS SUMMARY | 2024-08-28 18:24 | XMS_ITS | Encounter Summary ---
Author Organization [place] Address [address] [place] [address] Care Team Providers Care Electric Appliance Installer Name Role Phone Lita Oseguera Unavailable Unavailable Marija Edgar APRN FOREPART REDUCER Primary Care Provider + Chanelle Mccann APRN CNM Unavailab le Kyara De La Fuente RN Unavailable [phone] Marija Edgar APRN FOREPART REDUCER Unavailable [phone] Mynor Broussard MD Unavailable [phone] Keisha Dotson MD Unavailable [phone] Mary Mejia Unavailable Unavailable Stacey Briones BREWERY TECHNICIAN Unavailable Lesley Guillermo CHW Unavailable Mary Mejia Unavailable Unavailable Lita Oseguera Unavailable Unavailable Galo Burrell MD Unavailable Unavailable Cristina Wood Unavailable Lesley Guillermo CHW Unavailable Meredith Bedoya Unavailable Unavailable Cristina Wood Unavailable Diana Desir [facility] Unavailable Ruhland, Rain Lena PA-C Unavailable Summer Lara MD Unavailable [phone] Summer Lara MD Unavailable [phone] Summer Lara MD Unavailable [phone] Tavia Wyatt MD Unavailable [phone] Johnny Murillo MD Unavailable +[phone]- Erica Farrell SAMPLE CHECKER FOREPART REDUCER Unavailable VikasTeresita H Unavailable Tavia Wyatt MD Unavailable [phone] Diana Desir [facility] Unavailable [phone] Rich Barrett MD Unavailable Neil Kent MD Unavailable Roney Story [facility] Unavailable Erica Farrell APRN FOREPART REDUCER Unavailable Diana Desir [facility] Unavailable [phone] Jelena David OD Unavailable Galo Burrell MD Unavailable Unavailable Livan Sharif MD Unavailable Livan Sharif MD Unavailable + Catherine Cm MD Unavailable + Valery Veronica PA-C Unavailable [phone] Catherine Cm MD Unavailable + Johnny Murillo MD Unavailable +1- Brea Quinn SAMPLE CHECKER FOREPART REDUCER Unavailable [phone] Brea Quinn SAMPLE CHECKER FOREPART REDUCER Unavailable [phone] Jose Francisco Johnson MD Unavailable Livan Sharif MD Unavailable Catherine Cm MD Unavailable + Sydnie Martinez RN Unavailable Unavailable Alfonso Renteria MD Unavailable [phone] Esha Grimm PA-C Primary Care Provider [phone] Cheng Todd PA-C Unavailable LomeliRadha APRN FOREPART REDUCER Unavailable Jelena David OD Unavailable Pao Joseph RN Unavailable Unavailable Esha Grimm PA-C Unavailable [phone] Valery Veronica PA-C Unavailable Rey Tay MD Unavailable Rocky Zepeda DO Unavailable Philip Dumont MD Unavailable [phone] Meredith Carrera PA-C Unavailable Niel Kent MD Unavailable Juan Pablo Emmanuel MD Unavailable Audrey Waite PA-C Unavailable JeremíasValery damon PA-C Unavailable Herminia Hatch MD Unavailable Reason for Visit * Reason Comments Medication Refill Encounter Details Date Type Department Care Team (Late st Contact Info) Description 07/14/[address] [address] Rakesh Cid PA-C [address] [place] [address] Medication Refill Social History Tobacco [...] CDT Legal Sex Female 4:13 AM PAINT SPECIALIST Gender Identity Female 03/02/2021 5:45 PM CDT Sexual Orientation Straight 02/28/2020 12 :51 AM CDT COVID-19 Exposure Response Date Recorded In the last month, have you been in contact with someone who was confirmed or suspected to have Coronavirus / COVID-19? No / Unsure 06/24/2020 3:01 PM PAINT SPECIALIST documented as of this encounter Miscellaneous Notes * Telephone Encounter - Estephania Black RN - 07/16/2020 11:38 AM PAINT SPECIALIST Routing refill request to provider for review/approval because: Labs out of range: PHQ9> 4 patient was seen 3 weeks ago. Estephania Black RN Flex T SPECIALIST * Telephone Encounter - Brea Perry RN - 07/16/2020 11:34 AM PAINT SPECIALIST Routing to correct clinic. T SPECIALIST documented in this encounter Plan of Treatment Upcoming Encounters Date Type Department Care Team (Late st Contact Info) Description 10/23/2024 9:30 AM CDT Office Visit [facility] [place] [address] [place] [address], [address] [place] [address] [place] [address] [place] 380597 Johnny Penn MD [address] [place] [id number] documented as of this encounter Visit Diagnoses Diagnosis Anxiety Anxiety state, unspecified documented in this encounter Additional Health Concerns Infection Onset Date Last Indicated Resolved Time Rule Out COVID-19 07/30/2020 07/30/2020 07/30/2020 7:11 PM PAINT SPECIALIST Rule Out COVID-19 08/30/2020 08/30/2020 08/30/2020 5:05 PM PAINT SPECIALIST Rule Out COVID-19 09/24/2020 09/24/2020 09/24/2020 9:24 AM CDT Rule Out COVID-19 11/05/2020 11/05/2020 11/06/2020 1:09 PM CDT Rule Out COVID-19 05/11/2021 05/11/2021 05/13/2021 10:18 AM CDT Rule Out COVID-19 07/13/2021 07/13/2021 07/14/2021 3:04 PM PAINT SPECIALIST Rule Out COVID-19 07/18/2021 07/18/2021 07/20/2021 1:56 PM PAINT SPECIALIST COVID-19 07/18/2021 07/18/2021 08/08/2021 11:3 9 PM PAINT SPECIALIST Rule Out COVID-19 12/18/2021 12/18/2021 12/19/2021 11:34 AM CDT Rule Out COVID-19 02/24/2022 02/24/2022 02/25/2022 1:08 PM CDT Rule Out COVID-19 04/26/2022 04/26/2022 04/26/2022 6:47 AM CDT Rule Out COVID-19 05/17/2022 05/17/2022 05/17/2022 10:20 PM PAINT SPECIALIST Rule Out COVID-19 06/09/2022 06/09/2022 06/09/2022 9:35 AM PAINT SPECIALIST COVID-19 06/09/2022 06/09/2022 06/30/2022 11:4 1 PM PAINT SPECIALIST Rule Out COVID-19 11/10/2022 11/10/2022 11/11/2022 12:17 PM CDT Rule Out COVID-19 03/07/2023 03/07/2023 03/07/2023 1:20 PM CDT Rule Out COVID-19 12/26/2023 12/26/2023 12/26/2023 9:50 AM CDT Rule Out COVID-19 04/09/2024 04/09/2024 04/10/2024 6:48 PM CDT Assessment Noted Time PHQ-9 Depression Total Score: 9 06/25/20 7:04 AM PAINT SPECIALIST documented as of this encounter Care Teams Electric Appliance Installer Relationship Specialty Start Date End Date Marija Edgar APRN FOREPART REDUCER PCP - General Nurse Practitioner 04/30/20 04/14/23 Esha Grimm PA-C [address] [place] [address] PCP - General Family Medicine 05/04/23 Lita Oseguera Personal Advocate & Liaison (PAL) 02/28/20 03/27/23 Chanelle Mccann APRN CNAdam [address] [place] [address] 200 [place], [place] 873557 Assigned OBGYN Provider 05/02/2005/09 Kyara De La Fuente, RN Specialty Auto Damage Adjuster Neurology 06/04/20 03/05/21 Marija Edgar APRN FOREPART REDUCER Assigned PCP 06/08/20 04/29/23 Mynor Broussard MD 6363 [facility] 500 [place], [place] 132705 Assigned Surgical Provider 06/01/20 11/28/21 Keisha Dotson MD [address] [place] [address] 759605 Assigned Neuroscience Provider 06/04/20 04/01/23 Aditi Mejiandra Financial Resource Worker 08/07/20 08/21/20 AnselmoStacey, [facility] Lead Auto Damage Adjuster Primary Care - CC 08/11/2012/30 Lesley Guillermo, [facility] Community Health Worker 08/11/2010/01 Nikiatimothy Mary Financial Resource Worker 09/02/20 10/06/20 Lita Oseguera Personal Advocate & Liaison (PAL) Family Medicine 09/10/20 09/21/20 Galo Burrell MD Assigned Heart and Vascular Provider 10/05/20 04/02/22 Cristina Wood Financial Resource Worker 10/07/20 10/14/20 Lesley Guillermo, [facility] Community Health Worker 10/23/2012/30 Meredith Bedoya Financial Resource Worker 10/23/20 11/23/20 Cristina Wood Financial Resource Worker 02/09/21 02/09/21 Diana Desir, [facility] [address] [place] [address] Pharmacist Pharmacist 04/17/21 Rain Galaviz PA-C [address] [place] [address] DR [facility] [address] Physician Cabinetmaker Helper Dermatology 04/28/21 Summer Lara MD [address] [place], [place] 396494 Assigned OBGYN Provider 05/10/2105/23 Summer Lara MD [address] [place] [address] Assigned OBGYN Provider 05/31/21 2 Summer Lara MD [address] [facility] [place] [address] Assigned OBGYN Provider 05/24/2105/30 Tavia Wyatt MD [address] [facility] [place], [place] 1615[address] Dermatology 07/14/21 Johnny Murillo MD [address] [place] [address] Assigned Musculoskeletal Provider 08/30/21 03/17/22 Erica Farrell APRN FOREPART REDUCER 6405 [facility] [address] [place] [address] Nurse Practitioner Cardiovascular Disease 09/09/21 Teresita Bean [facility] [address] [place] [phone] Pharmacist Pharmacist 09/24/21 09/29/21 Tavia Wyatt MD [address] [place], [place] 461420 Assigned Surgical Provider 11/29/21 05/07/22 Diana Desir, [facility] [address] [place] [address] Assigned MTM Pharmacist 01/02/22 Rich Barrett MD [address] 270[address] Physician Ophthalmology 01/21/22 Neil Kent MD 500 [place], [place] 0[address]35 Dermatology 02/24/22 Roney Story DPM [address] [facility] [address] [place], [place] [address]907 Assigned Musculoskeletal Provider 03/20/22 08/13/22 Erica Farrell APRN FOREPART REDUCER 1700 [place] [address] Assigned Heart and Vascular Provider 04/03/22 04/16/22 Diana Desir, [facility] [address] [place] [address] Assigned MTM Pharmacist 04/07/22 Jelena David OD [address] [facility] [place] [address] Assigned Surgical Provider 05/08/22 10/08/22 Galo Burrell MD Assigned Heart and Vascular Provider 04/17/22 06/11/22 Livan Sharif MD [address] [place] 635945 Cardiovascular Disease 05/14/22 Livan Sharif MD [address] [facility] [address] [place] [address] Assigned Heart and Vascular Provider 06/12/22 07/23/22 Catherine Cm MD [address] [facility] [address] [place] [address] Cardiovascular Disease 07/21/22 Valery Veronica, PA-C [address] [place] [address] [phone] Physician Cabinetmaker Helper Dermatology 07/21/22 Catherine Cm MD [address] Sylvia [facility] [place] [place] [address] Assigned Heart and Vascular Provider 07/24/22 11/05/22 Johnny Murillo MD [address] [place] [address] 141594 Assigned Musculoskeletal Provider 08/14/22 10/08/22 Brea Quinn APRN FOREPART REDUCER [address] [place] [address] 197235 Nurse Practitioner Dermatology 09/21/22 Brea Quinn APRN FOREPART REDUCER [address] [place] [address] [place] 212642 Assigned Surgical Provider 10/09/22 05/01/24 [place] [address] [place] [address] Assigned Musculoskeletal Provider 10/09/22 05/01/24 Livan Sharif MD [address], [facility] [address] [place] 8[address]805 Assigned Heart and Vascular Provider 11/06/22 11/12/22 Catherine Cm MD [address] [place], [place] 850205 Assigned Heart and Vascular Provider 11/13/22 05/27/23 Sydnie Martinez, VJ Personal Advocate & Liaison (PAL) Family Medicine 03/28/23 07/31/23 Alfonso Renteria MD 5775 [facility] 200 [place] [address] Assigned Neuroscience Provider 04/02/23 Cheng Todd PA-C [address] [place] [address] [id number] Assigned PCP 04/30/23 07/15/23 Radha Lomeli, ARLENE FOREPART REDUCER [address] [place] [address] Assigned Heart and Vascular Provider 05/28/23 Jelena David OD [address] [facility] [place] [address] Ophthalmology 06/15/23 Pao Joseph, VJ Personal Advocate & Liaison (PAL) Nurse 08/01/23 11/07/23 Esha Grimm PAUcheC [address] [place] [address] Assigned PCP 07/16/23 Valery Veronica PA-C 909 [place], [place] 7[address] Physician Cabinetmaker Helper Dermatology 09/19/23 Rey Tay MD 9 [place], [place] 305885 MD Gastroenterology 09/20/23 Rocky Zepeda DO 500 [place], [place] 343775 Physician Gastroenterology 09/20/23 Philip Dumont MD [address] [place] [address] 092355 Physician Ophthalmology 09/22/23 Meredith Carrera PA-C [address] [place] [address] 867195 Assigned Gastroenterology Provider 11/01/23 Neil Kent MD [address] [address] Dermatology 11/02/23 [place] [address] [place] [address] Neurological Surgery 12/26/23 Audrey Waite PA-C 500 [place] [address] Physician Cabinetmaker Helper Dermatology 02/28/24 Valery Veronica PA-C [address] [place] [address] Physician Cabinetmaker Helper Dermatology 04/10/24 Herminia Hatch MD [address] [place] [address] [id number] Assigned Rheumatology Provider 07/02/24 documented as of this encounter
--- OUTSIDE RECORDS SUMMARY | 2024-08-28 18:24 | XMS_ITS | Encounter Summary ---
Author Organization [place] Address [address] [place] [address] Care Team Providers Care Meter Setter Name Role Phone Diana Desir [facility] Unavailable Rain Galaviz PA-C Unavailable Tavia Wyatt MD Unavailable Erica Farrell APRN BED MANAGER Unavailable Rich Barrett MD Unavailable [phone] Neil Kent MD Unavailable Diana Desir [facility] Unavailable [phone] Livan Sharif MD Unavailable Catherine Cm MD Unavailable + Valery Veronica PA-C Unavailable [phone] Brea Quinn SUPERVISOR PRINTING AND STAMPING BED MANAGER Unavailable Brea Quinn SUPERVISOR PRINTING AND STAMPING BED MANAGER Unavailable Jose Francisco Johnson MD Unavailable Alfonso Renteria MD Unavailable [phone] Esha Grimm PA-C Primary Care Provider Lomeli, Radha E SUPERVISOR PRINTING AND STAMPING BED MANAGER Unavailable [phone] Jelena David OD Unavailable Esha Grimm PA-C Unavailable [phone] Valery Veronica PA-C Unavailable Rey Tay MD Unavailable Rocky Zepeda DO Unavailable Philip Dumont MD Unavailable Meredith Carrera PA-C Unavailable Neil Kent MD Unavailable Juan Pablo Emmanuel MD Unavailable [phone] Audrey Waite PA-C Unavailable [phone] Valery Veronica PA-C Unavailable [phone] Herminia Hatch MD Unavailable Reason for Visit * Reason Onset Date Comments Appointment 12/02/2023 Clarification Encounter Details Date Type Department Care Team (Late st Contact Info) Description 12/02/2023 Telephone [facility] Heart [facility] [address] [facility] [address] [place] [address] Radha Lomeli, SUPERVISOR PRINTING AND STAMPING BED MANAGER [address] [facility] [address] [place] [address] Appointment (Clarification) Social History Tobacco Use [...] [facility] - Occupational [...] exercise at this level? 30 min 03/10/2023 [place] Depression Scale Answer Date Recorded [place] Depression Score 5 01/14/2021 Last EPDS Self [...] PM CDT Legal Sex Female 4:13 AM ARCHITECTURAL DRAFTING INSTRUCTOR Gender Identity Female 03/02/2021 5:45 PM CDT Sexual Orientation Straight 02/28/2020 12 :51 AM CDT documented as of this encounter Miscellaneous Notes * Telephone Encounter - Carley Myles RN - 12/02/2023 10:22 AM CDT Discussed with patient and reviewed questions. Questions pertaining to OV's scheduled. Carley ZABALA [facility] * Telephone Encounter - Janett Fragoso - 12/02/2023 8:56 AM CDT [facility] Call Center Phone Message May [...] Office Visit [facility] Neurology [facility] [address] [facility], [address] [place] [address] [place] [address] [place] [address] oJhnny Penn MD [address] [place] [address] documented as of this encounter Visit Diagnoses Not on filedocumented in this encounter Additional Health Concerns Infection Onset Date Last Indicated Resolved Time Rule Out COVID-19 12/26/2023 12/26/2023 12/26/2023 9:50 AM CDT Rule Out COVID-19 04/09/2024 04/09/2024 04/10/2024 6:48 PM CDT Assessment Noted Time PHQ-9 Depression Total Score: 4 06/20/20 23 8:40 AM ARCHITECTURAL DRAFTING INSTRUCTOR documented as of this encounter Care Teams Meter Setter Relationship Specialty Start Date End Date Esha Grimm PA-C [address] [place] [phone] PCP - General Family Medicine 05/04/23 Diana Desir [facility] [address] [place] [address] Pharmacist Pharmacist 04/17/21 Rain Galaviz PA-C [address] [place] [address] [address] [place] [address] Physician Account Administrator Dermatology 04/28/21 Tavia Wyatt MD [address] [place] [address] [address] [place] [address] Dermatology 07/14/21 Erica Farrell APRN BED MANAGER [address] [place], [place] [address] Nurse Practitioner Cardiovascular Disease 09/09/21 Rich Barrett MD [address] [place] [address] 702775 Physician Ophthalmology 01/21/22 Neil Kent MD [address] [place] [address] 636005 Dermatology 02/24/22 [facility] [address] [place] [address] [phone] Assigned [place] Pharmacist 04/07/22 Livan Sharif MD [address] [facility] [place] [address] Cardiovascular Disease 05/14/22 Catherine Cm MD [address] [place] [address] [place] 401145 Cardiovascular Disease 07/21/22 Valery Veronica, PA-C [address] [place] [address] 328305 Physician Account Administrator Dermatology 07/21/22 Brea Quinn APRN BED MANAGER [address] [place], [place] 627[address] Nurse Practitioner Dermatology 09/21/22 Brea Quinn APRN BED MANAGER [address] [place] [address] Assigned Surgical Provider 10/09/22 05/01/24 [place] [address] [address] Assigned Musculoskeletal Provider 10/09/22 05/01/24 Alfonso Renteria MD [address] 099396 Assigned Neuroscience Provider 04/02/23 Radha Lomeli APRN BED MANAGER [address] [place] [address] Assigned Heart and Vascular Provider 05/28/23 Jelena David OD [address] [facility] [place] [address] Ophthalmology 06/15/23 Esha Grimm PA-C [address] [place] [phone] Assigned PCP 07/16/23 Valery Veronica PA-C 9 [place], [place] [address] Physician Account Administrator Dermatology 09/19/23 Rey Tay MD [address] [place], [place] 3827[address] MD Gastroenterology 09/20/23 Rocky Zepeda DO 500 [place] [address] Physician Gastroenterology 09/20/23 Philip Dumont MD 516 [place] [address] Physician Ophthalmology 09/22/23 Meredith Carrera PA-C 9 [place] [address] Assigned Gastroenterology Provider 11/01/23 Neil Kent MD [address] [place] [address] 269[address] Dermatology 11/02/23 [place] [address] [facility] [place], [place] 9799[address] Neurological Surgery 12/26/23 Audrey Waite PA-C [address] [place] [address] Physician Account Administrator Dermatology 02/28/24 Valery Veronica PA-C [id number] [address] Physician Account Administrator Dermatology 04/10/24 Herminia Hatch MD [address] [place] [address] Assigned Rheumatology Provider 07/02/24 documented as of this encounter
--- OUTSIDE RECORDS SUMMARY | 2024-08-28 18:24 | XMS_ITS | Encounter Summary ---
Author Organization [place] Address [address] [place] [address] Care Team Providers Care Auto Research Engineer Name Role Phone Diana Desir [facility] Unavailable Rain Galaviz PA-C Unavailable Tavia Wyatt MD Unavailable Erica Farrell APRN SPECIALTY SALES CONSULTANT Unavailable Rich Barrett MD Unavailable [phone] Neil Kent MD Unavailable Diana Desir [facility] Unavailable Livan Sharif MD Unavailable Catherine Cm MD Unavailable + Valery Veronica PA-C Unavailable Brea Quinn GUM SPRAYER SPECIALTY SALES CONSULTANT Unavailable Brea Quinn GUM SPRAYER SPECIALTY SALES CONSULTANT Unavailable Jose Francisco Johnson MD Unavailable Alfonso Renteria MD Unavailable [phone] Esha Grimm PA-C Primary Care Provider [phone] Radha Lomeli APRN SPECIALTY SALES CONSULTANT Unavailable Jelena David OD Unavailable Pao Joseph RN Unavailable Unavailable Esha Grimm PA-C Unavailable [phone] Valery Veronica PA-C Unavailable Rey Tay MD Unavailable Rocky Zepeda DO Unavailable Philip Dumont MD Unavailable Meredith Carrera PA-C Unavailable Neil Kent MD Unavailable Juan Pablo Emmanuel MD Unavailable Audrey Waite PA-C Unavailable [phone] Valery Veronica PA-C Unavailable [phone] Herminia Hatch MD Unavailable Reason for Visit * Reason Onset Date Comments Medication Question 10/21/2023 omeprazole Encounter Details Date Type Department Care Team (Late st Contact Info) Description 10/21/2023 Telephone [facility] Gastroenterology Clinic [address] [place] [address] Meredith Carrera PA-C [address] [place] [address] Medication Question (omeprazole ) Social History [...] Score 0 10/25/2023 [facility] - Occupational Stress Questionnaire Answer [...] exercise at this level? 30 min 03/10/2023 [place] Depression Scale Answer Date Recorded [place] Depression Score 5 01/14/2021 Last EPDS Self [...] PM CDT Legal Sex Female 4:13 AM BI REPORT DEVELOPER Gender Identity Female 03/02/2021 5:45 PM [...] routed to: [facility] GASTROENTEROLOGY [facility]ULT [facility][[id number]] Travel Screening: Not Applicable documented in this encounter Plan of Treatment Upcoming Encounters Date Type Department Care Team (Late st Contact Info) Description 10/23/2024 9:30 AM CDT Office Visit [facility] Neurology [facility] [address] [facility], [address] [place] [phone] [place] [address] [place], [place] [phone] Johnny Penn MD [address] [facility] [place] 47[address] documented as of this encounter Visit Diagnoses Not on filedocumented in this encounter Additional Health Concerns Infection Onset Date Last Indicated Resolved Time Rule Out COVID-19 12/26/2023 12/26/2023 12/26/2023 9:50 AM CDT Rule Out COVID-19 04/09/2024 04/09/2024 04/10/2024 6:48 PM CDT Assessment Noted Time PHQ-9 Depression Total Score: 4 06/20/20 23 8:40 AM BI REPORT DEVELOPER documented as of this encounter Care Teams Auto Research Engineer Relationship Specialty Start Date End Date Esha Grimm PA-C [address] [place] [phone] PCP - General Family Medicine 05/04/23 Diana Desir, [facility] [address] [place] [address] Pharmacist Pharmacist 04/17/21 Rain Galaviz PA-C [address] [place] [address] [address] [facility] [address] Physician Environmental Aide Dermatology 04/28/21 Tavia Wyatt MD [address] [place] [address] [address] [place] [address] Dermatology 07/14/21 Erica Farrell APRN SPECIALTY SALES CONSULTANT [address] [place], [place] [address] Nurse Practitioner Cardiovascular Disease 09/09/21 Rich Barrett MD [address] [facility] [address] [place], [place] [address] Physician Ophthalmology 01/21/22 Neil Kent MD [address] [place], [place] 6[address] Dermatology 02/24/22 Diana Desir, [facility] [address] [place] [address] [id number] Assigned [place] Pharmacist 04/07/22 Livan Sharif MD [address] [facility] [place], [place] [address] Cardiovascular Disease 05/14/22 Catherine Cm MD [address] [facility] [address] 0356[address] Cardiovascular Disease 07/21/22 Valery Veronica, PA-C [address] [place] [address]665 Physician Environmental Aide Dermatology 07/21/22 Brea Quinn APRN SPECIALTY SALES CONSULTANT 500 [place] [address] Nurse Practitioner Dermatology 09/21/22 Brea Quinn APRN SPECIALTY SALES CONSULTANT [address] [facility] [place] [address] Assigned Surgical Provider 10/09/22 05/01/24 [place] [address] [address] [facility] [address] [place] [address] Assigned Musculoskeletal Provider 10/09/22 05/01/24 Alfonso Renteria MD [address] [facility] 200 [place], [place] 9[address]126 Assigned Neuroscience Provider 04/02/23 Radha Lomeli APRN SPECIALTY SALES CONSULTANT [address] [place] [phone] [place] [address] Assigned Heart and Vascular Provider 05/28/23 Jelena David OD [address] [facility] [place] [address] Ophthalmology 06/15/23 Pao Joseph, VJ Personal Advocate & Liaison (PAL) Nurse 08/01/23 11/07/23 Esha Grimm PA-C [address] [place] [phone] Assigned PCP 07/16/23 Valery Veronica PA-C 909 [place] [address] Physician Environmental Aide Dermatology 09/19/23 Rey Tay MD 909 [place] [address] Gastroenterology 09/20/23 Rocky Zepeda DO 500 [place] [address] Physician Gastroenterology 09/20/23 Philip Dumont MD 6 [place] [address] Physician Ophthalmology 09/22/23 Meredith Carrera PA-C 9 [place] [address] Assigned Gastroenterology Provider 11/01/23 Neil Kent MD [address] [address] Dermatology 11/02/23 [place] [address] [address] Neurological Surgery 12/26/23 Audrey Waite PA-C 500 [place] [address] Physician Environmental Aide Dermatology 02/28/24 Valery Veronica PA-C [id number] [place] [address] Physician Environmental Aide Dermatology 04/10/24 Herminia Hatch MD [facility]5 [place], [place] [id number] Assigned Rheumatology Provider 07/02/24 documented as of this encounter
--- OUTSIDE RECORDS SUMMARY | 2024-08-28 18:24 | XMS_ITS | Encounter Summary ---
Author Organization [place] Address [address] [place] [address] Care Team Providers Care Mud Jack Operator Name Role Phone Lita Oseguera Unavailable Unavailable Marija Edgar APRN FOUR ROLL CALENDER OPERATOR Primary Care Provider + Chanelle Mccann APRN CNM Unavailab le Kyara De La Fuente RN Unavailable [phone] Marija Edgar APRN FOUR ROLL CALENDER OPERATOR Unavailable Mynor Broussard MD Unavailable [phone] Keisha Dotson MD Unavailable Mary Mejia Unavailable Unavailable Stacey Briones MISSILE MECHANIC Unavailable Lesley Guillermo CHW Unavailable Mary Mejia Unavailable Unavailable Lita Oseguera Unavailable Unavailable Galo Burrell MD Unavailable Unavailable Cristina Wood Unavailable Lesley Guillermo CHW Unavailable Meredith Bedoya Unavailable Unavailable Cristina Wood Unavailable Diana Desir [facility] Unavailable [place]uhland, Rain Lena PA-C Unavailable Summer Lara MD Unavailable [phone] Summer Lara MD Unavailable [phone] Summer Lara MD Unavailable [phone] Tavia Wyatt MD Unavailable [phone] Johnny Murillo MD Unavailable +1- Erica Farrell ROUTE SALES DELIVERY DRIVER FOUR ROLL CALENDER OPERATOR Unavailable VikasTeresita H Unavailable Tavia Wyatt MD Unavailable [phone] Diana Desir [facility] Unavailable [phone] Rich Barrett MD Unavailable Neil Kent MD Unavailable Roney Stroy [facility] Unavailable Erica Farrell APRN FOUR ROLL CALENDER OPERATOR Unavailable Diana Desir [facility] Unavailable [phone] Jelena David OD Unavailable Galo Burrell MD Unavailable Unavailable Livan Sharif MD Unavailable Livan Sharif MD Unavailable + Catherine Cm MD Unavailable + Valery Veronica PA-C Unavailable [phone] Catherine Cm MD Unavailable + Johnny Murillo MD Unavailable +1- Brea Quinn ROUTE SALES DELIVERY DRIVER FOUR ROLL CALENDER OPERATOR Unavailable +1- Brea Quinn ROUTE SALES DELIVERY DRIVER FOUR ROLL CALENDER OPERATOR Unavailable [phone] Jose Francisco Johnson MD Unavailable Livan Sharif MD Unavailable Catherine Cm MD Unavailable + Sydnie Martinez RN Unavailable Unavailable Alfonso Renteria MD Unavailable [phone] Esha Grimm PA-C Primary Care Provider Cheng Todd PA-C Unavailable Radha Lomeli APRN FOUR ROLL CALENDER OPERATOR Unavailable FrankieJelena OD Unavailable [phone] Pao Joseph RN Unavailable Unavailable Esha Grimm PA-C Unavailable [phone] Valery Veronica PA-C Unavailable Rey Tay MD Unavailable Rocky Zepeda DO Unavailable Philip Dumont MD Unavailable Meredith Carrera PA-C Unavailable Neil Kent MD Unavailable Juan Pablo Emmanuel MD Unavailable Audrey Waite PA-C Unavailable [phone] JeremíasValery damon PA-C Unavailable Herminia Hatch MD Unavailable Encounter Details Date Type Department Care Team (Latest Contact Info) Description 07/29/2020 MyC Medical Advice [facility] [id number] [place] [phone] Marija Edgar APRN FOUR ROLL CALENDER OPERATOR [address] [place] [address] Palpitations (Primary Dx) Social History Tobacco [...] PM CDT Legal Sex Female 4:13 AM SPINNING FRAME FIXER Gender Identity Female 03/02/2021 5:45 PM CDT Sexual Orientation Straight 02/28/2020 12 :51 AM CDT COVID-19 Exposure Response Date Recorded In the last month, have you been in contact with someone who was confirmed or suspected to have Coronavirus / COVID-19? No / Unsure 07/30/2020 4:53 PM SPINNING FRAME FIXER documented as of this encounter Miscellaneous Notes * Telephone Encounter - Marija Edgar APRN FOUR ROLL CALENDER OPERATOR - 07/30/2020 10:21 AM SPINNING FRAME FIXER Responded via [place] [facility] Marija Edgar APRN FOUR ROLL CALENDER OPERATOR on 07/30/2020 at 10:28 AM NING FRAME FIXER documented in this encounter Plan of Treatment Upcoming Encounters Date Type Department Care Team (Late st Contact Info) Description 10/23/2024 9:30 AM CDT Office Visit [facility] Neurology Clinics [address], [address] [place] [address] [place] [address] [address] [place] [id number] Johnny Penn MD [address] [place] [address] [place] [id number] documented as of this encounter Visit Diagnoses Diagnosis Palpitations- Primary documented in this encounter Additional Health Concerns Infection Onset Date Last Indicated Resolved Time Rule Out COVID-19 07/30/2020 07/30/2020 07/30/2020 7:11 PM SPINNING FRAME FIXER Rule Out COVID-19 08/30/2020 08/30/202008/30/2020 5:05 PM SPINNING FRAME FIXER Rule Out COVID-19 09/24/2020 09/24/2020 09/24/2020 9:24 AM CDT Rule Out COVID-19 11/05/2020 11/05/2020 11/06/2020 1:09 PM CDT Rule Out COVID-19 05/11/2021 05/11/2021 05/13/2021 10:18 AM CDT Rule Out COVID-19 07/13/2021 07/13/2021 07/14/2021 3:04 PM SPINNING FRAME FIXER Rule Out COVID-19 07/18/2021 07/18/2021 07/20/2021 1:56 PM SPINNING FRAME FIXER COVID-19 07/18/2021 07/18/2021 08/08/2021 11:3 9 PM SPINNING FRAME FIXER Rule Out COVID-19 12/18/2021 12/18/2021 12/19/2021 11:34 AM CDT Rule Out COVID-19 02/24/2022 02/24/2022 02/25/2022 1:08 PM CDT Rule Out COVID-19 04/26/2022 04/26/2022 04/26/2022 6:47 AM CDT Rule Out COVID-19 05/17/2022 05/17/2022 05/17/2022 10:20 PM SPINNING FRAME FIXER Rule Out COVID-19 06/09/2022 06/09/2022 06/09/2022 9:35 AM SPINNING FRAME FIXER COVID-19 06/09/2022 06/09/2022 06/30/2022 11:4 1 PM SPINNING FRAME FIXER Rule Out COVID-19 11/10/2022 11/10/2022 11/11/2022 12:17 PM CDT Rule Out COVID-19 03/07/2023 03/07/2023 03/07/2023 1:20 PM CDT Rule Out COVID-19 12/26/2023 12/26/2023 12/26/2023 9:50 AM CDT Rule Out COVID-19 04/09/2024 04/09/2024 04/10/2024 6:48 PM CDT Assessment Noted Time PHQ-9 Depression Total Score: 9 06/25/20 7:04 AM SPINNING FRAME FIXER documented as of this encounter Care Teams Mud Jack Operator Relationship Specialty Start Date End Date Marija Edgar APRN FOUR ROLL CALENDER OPERATOR PCP - General Nurse Practitioner 04/30/20 04/14/23 Esha Grimm PA-C [address] [place] [address] PCP - General Family Medicine 05/04/23 Lita Oseguera Personal Advocate & Liaison (PAL) 02/28/20 03/27/23 Chanelle Mccann APRN CNM [address] [facility] 200 [place] [address] Assigned OBGYN Provider 05/02/2005/09 Kyara De La Fuente, RN Specialty Boilermaker Pipe Fitter Neurology 06/04/20 03/05/21 Marija Edgar APRN FOUR ROLL CALENDER OPERATOR Assigned PCP 06/08/20 04/29/23 Mynor Broussard MD 6363 [facility] 500 [place], [place] 859495 Assigned Surgical Provider 06/01/20 11/28/21 Keisha Dotson MD 909 [place], [place] 030135 Assigned Neuroscience Provider 06/04/20 04/01/23 Mary Mejia Financial Resource Worker 08/07/20 08/21/20 Stacey Briones, MISSILE MECHANIC Lead Boilermaker Pipe Fitter Primary Care - CC 08/11/2012/30 Lesley Guillermo, [facility] Community Health Worker 08/11/2010/01 NikiatimothyMary Financial Resource Worker 09/02/20 10/06/20 Lita Oseguera Personal Advocate & Liaison (PAL) Family Medicine 09/10/20 09/21/20 Galo Burrell MD Assigned Heart and Vascular Provider 10/05/20 04/02/22 Cristina Wood Financial Resource Worker 10/07/20 10/14/20 Lesley Guillermo, [facility] Community Health Worker 10/23/2012/30 Meredith Bedoya Financial Resource Worker 10/23/20 11/23/20 Cristina Wood Financial Resource Worker 02/09/21 02/09/21 Diana Desir, [facility] [address] [facility] [place], [place] [address] Pharmacist Pharmacist 04/17/21 Rain Galaviz PA-C [address] [place] [address] [address] [place], [place] [id number] Physician Laser Specialist Dermatology 04/28/21 Summer Lara MD [address] [place] [address] 267974 Assigned OBGYN Provider 05/10/2105/23 Summer Lara MD [address] [place] [address] Assigned OBGYN Provider 05/31/21 2 Summer Lara MD [address] [place] [address] Assigned OBGYN Provider 05/24/2105/30 Tavia Wyatt MD [address] [place] [address] Dermatology 07/14/21 Johnny Murillo MD [address] [place] [address] Assigned Musculoskeletal Provider 08/30/21 03/17/22 Erica Farrell APRN FOUR ROLL CALENDER OPERATOR 6405 [facility] [address] [place], [place] 7038[address] Nurse Practitioner Cardiovascular Disease 09/09/21 Teresita Bean [facility] [address] [place] [id number] Pharmacist Pharmacist 09/24/21 09/29/21 Tavia Wyatt MD [address] [place], [place] 995730 Assigned Surgical Provider 11/29/21 05/07/22 [facility] [address] [place] [address] Assigned MTM Pharmacist 01/02/22 Rich Barrett MD 516 [facility], CLINIC 9A [place], [place] 348[address] Physician Ophthalmology 01/21/22 Neil Kent MD 500 [place] [address] Dermatology 02/24/22 Roney Story DPM [address] [employer] [facility] [address] [place] [address] Assigned Musculoskeletal Provider 03/20/22 08/13/22 Erica Farrell APRN FOUR ROLL CALENDER OPERATOR 1700 [place] [address] Assigned Heart and Vascular Provider 04/03/22 04/16/22 Diana Desir, [facility] 30[address] [place], [place] 371406 Assigned MTM Pharmacist 04/07/22 Jelena David OD [address] [place] [address] Assigned Surgical Provider 05/08/22 10/08/22 Galo Burrell MD Assigned Heart and Vascular Provider 04/17/22 06/11/22 Livan Sharif MD [address] [place] [address] Cardiovascular Disease 05/14/22 Livan Sharif MD [address] [place] [address] Assigned Heart and Vascular Provider 06/12/22 07/23/22 Catherine Cm MD [address] [place] [address] Cardiovascular Disease 07/21/22 Valery Veronica, PA-C [address] [place] [address] Physician Laser Specialist Dermatology 07/21/22 Catherine Cm MD [address] [place] [address] Assigned Heart and Vascular Provider 07/24/22 11/05/22 Johnny Murillo MD [address] [place] [address] Assigned Musculoskeletal Provider 08/14/22 10/08/22 Brea Quinn APRN FOUR ROLL CALENDER OPERATOR [address] [place] [address] Nurse Practitioner Dermatology 09/21/22 Brea Quinn APRN FOUR ROLL CALENDER OPERATOR [address] [place] [address] Assigned Surgical Provider 10/09/22 05/01/24 [place] [address] [address] Assigned Musculoskeletal Provider 10/09/22 05/01/24 Livan Sharif MD [address] [place] [address] [place] [address] Assigned Heart and Vascular Provider 11/06/22 11/12/22 Catherine Cm MD [address] [place] [address] Assigned Heart and Vascular Provider 11/13/22 05/27/23 Sydnie Martinez RN Personal Advocate & Liaison (PAL) Family Medicine 03/28/23 07/31/23 Alfonso Renteria MD 5775 [facility] [address] 200 [place] [address] Assigned Neuroscience Provider 04/02/23 Cheng Todd PA-C [address] [place] [address] [id number] Assigned PCP 04/30/23 07/15/23 Radha Lomeli APRN FOUR ROLL CALENDER OPERATOR [address] [place] [address] Assigned Heart and Vascular Provider 05/28/23 Jelena David OD [address] [place] [address] Ophthalmology 06/15/23 Pao Joseph RN Personal Advocate & Liaison (PAL) Nurse 08/01/23 11/07/23 Esha Grimm PA-C [address] [place] [address] Assigned PCP 07/16/23 Valery Veronica PA-C [address] [place] [address] Physician Laser Specialist Dermatology 09/19/23 Rey Tay MD 909 [place] [address] Gastroenterology 09/20/23 Rocky Zepeda DO 500 [place] [address] Physician Gastroenterology 09/20/23 Philip Dumont MD [address] [place] [address] Physician Ophthalmology 09/22/23 Meredith Carrera PA-C [address] [place] [address] Assigned Gastroenterology Provider 11/01/23 Neil Kent MD [address] [address] MD Dermatology 11/02/23 [place] [address] [address] Neurological Surgery 12/26/23 Audrey Waite PA-C 500 [place] [address] Physician Laser Specialist Dermatology 02/28/24 Valery Veronica PA-C [id number] [place] [address] Physician Laser Specialist Dermatology 04/10/24 Herminia Hatch MD [facility]5 [place], [place] 7384[address] Assigned Rheumatology Provider 07/02/24 documented as of this encounter
--- OUTSIDE RECORDS SUMMARY | 2024-08-28 18:24 | XMS_ITS | Encounter Summary ---
Author Organization [place] Address [address] [place] [address] Care Team Providers Care Mica Paster Name Role Phone Diana Desir [facility] Unavailable [phone] Rain Galaviz PA-C Unavailable Tavia Wyatt MD Unavailable Erica Farrell APRN WOOL WASHING MACHINE OPERATOR Unavailable Rich Barrett MD Unavailable [phone] Neil Kent MD Unavailable Diana Desir [facility] Unavailable [phone] Livan Sharif MD Unavailable Catherine Cm MD Unavailable + Valery Veronica PA-C Unavailable Brea Quinn GLASS DEPOSITION TENDER WOOL WASHING MACHINE OPERATOR Unavailable Brea Quinn GLASS DEPOSITION TENDER WOOL WASHING MACHINE OPERATOR Unavailable Jose Francisco Johnson MD Unavailable Alfonso Renteria MD Unavailable [phone] Esha Grimm PA-C Primary Care Provider [phone] Lomeli, Radha E GLASS DEPOSITION TENDER WOOL WASHING MACHINE OPERATOR Unavailable [phone] Jelena David OD Unavailable [phone] Esha Grimm PA-C Unavailable [phone] Valery Veronica PA-C Unavailable [phone] Rey Tay MD Unavailable Rocky Zepeda DO Unavailable Philip Dumont MD Unavailable [phone] Meredith Carrera PA-C Unavailable [phone] Neil Kent MD Unavailable Juan Pablo Emmanuel MD Unavailable [phone] Audrey Waite PA-C Unavailable [phone] Valery Veronica PA-C Unavailable [phone] Herminia Hatch MD Unavailable Encounter Details Date Type Department Care Team (Late st Contact Info) Description 11/21/2023 [facility] Medical Advice [facility] Gastroenterology Clinic [address] [place] [address] Sofia Alcantar Social History Tobacco [...] 10/25/2023 [facility] Health - Occupational Stress Questionnaire Answer Date [...] exercise at this level? 30 min 03/10/2023 [place] Depression Scale Answer Date Recorded [place] [...] PM CDT Legal Sex Female 4:13 AM VICE INVESTIGATOR Gender Identity Female 03/02/2021 5:45 PM CDT Sexual Orientation Straight 02/28/2020 12 :51 AM CDT documented as of this encounter Plan of Treatment Upcoming Encounters Date Type Department Care Team (Late st Contact Info) Description 10/23/2024 9:30 AM CDT Office Visit [facility] Neurology [address], [address] [place] [address] [place] [address] [place] [address] Johnny Penn MD 1747 [facility] [place] [address] documented as of this encounter Visit Diagnoses Not on filedocumented in this encounter Additional Health Concerns Infection Onset Date Last Indicated Resolved Time Rule Out COVID-19 12/26/2023 12/26/2023 12/26/2023 9:50 AM CDT Rule Out COVID-19 04/09/2024 04/09/2024 04/10/2024 6:48 PM CDT Assessment Noted Time PHQ-9 Depression Total Score: 4 06/20/20 23 8:40 AM VICE INVESTIGATOR documented as of this encounter Care Teams Mica Paster Relationship Specialty Start Date End Date Esha Grimm PA-C [address] [place] [address] PCP - General Family Medicine 05/04/23 Diana Desir, [facility] [address] [place] [address] Pharmacist Pharmacist 04/17/21 Rain Galaviz PA-C [address] [place] [address] [address] [place] [address] Physician Glassie Dermatology 04/28/21 Tavia Wyatt MD [address] [place] [address] [address] [place] [facility] [address] Dermatology 07/14/21 Erica Farrell APRN WOOL WASHING MACHINE OPERATOR [address] [facility] [address] [place] [address] Nurse Practitioner Cardiovascular Disease 09/09/21 Rich Barrett MD [address] [facility] 9A [place], [place] [address] Physician Ophthalmology 01/21/22 Neil Kent MD [address] [place] [address] 440015 Dermatology 02/24/22 Diana Desir, [facility] 3033 [place] [address] Assigned MTM Pharmacist 04/07/22 Livan Sharif MD [address], [facility] [address] [place] [address] Cardiovascular Disease 05/14/22 Catherine Cm MD [address] [facility] [address] [place], [place] 6[address] Cardiovascular Disease 07/21/22 Valery Veronica, PA-C 909 [place], [place] 204445 Physician Glassie Dermatology 07/21/22 Brea Quinn APRN WOOL WASHING MACHINE OPERATOR 500 [place], [place] 653465 Nurse Practitioner Dermatology 09/21/22 Brea Quinn APRN WOOL WASHING MACHINE OPERATOR [address] [place] [address] Assigned Surgical Provider 10/09/22 05/01/24 [place] [address] [place] [facility] 300 [place] [address] Assigned Musculoskeletal Provider 10/09/22 05/01/24 Alfonso Renteria MD [address] [facility] 200 [place] [address] Assigned Neuroscience Provider 04/02/23 Radha Lomeli APRN WOOL WASHING MACHINE OPERATOR [address] [place], [place] 956595 Assigned Heart and Vascular Provider 05/28/23 Tommy Davidistine SONJA Garcia [address] [facility] [place] [address] MD Ophthalmology 06/15/23 Esha Grimm PA-C [address] [place] [phone] Assigned PCP 07/16/23 Valery Veronica PA-C [address] [place] [address] 437705 Physician Glassie Dermatology 09/19/23 Rey Tay MD [address] [place] [address] 134115 Gastroenterology 09/20/23 Rocky Zepeda DO [address] [place] [address] 375555 Physician Gastroenterology 09/20/23 Philip Dumont MD [address] [place] [address] 541735 Physician Ophthalmology 09/22/23 Meredith Carrera PA-C [address] [place] [address] 420855 Assigned Gastroenterology Provider 11/01/23 Neil Kent MD [address] 4010[address] Dermatology 11/02/23 [place] [address] [place] [address] [address] Neurological Surgery 12/26/23 Audrey Waite PA-C 500 [place] [address] Physician Glassie Dermatology 02/28/24 Valery Veronica PA-C [address] [place] [address] Physician Glassie Dermatology 04/10/24 Herminia Hatch MD [facility]5 [place], [place] 03509125 Assigned Rheumatology Provider 07/02/24 documented as of this encounter
--- OUTSIDE RECORDS SUMMARY | 2024-08-28 18:24 | XMS_ITS | Encounter Summary ---
Author Organization [place] Address [address] [place] [address] Care Team Providers Care Test Grader Name Role Phone Diana Desir [facility] Unavailable Rain Galaviz PA-C Unavailable Tavia Wyatt MD Unavailable Erica Farrell APRN DIRECTOR OF SOCIAL WORK Unavailable Rich Barrett MD Unavailable [phone] Neil Kent MD Unavailable Diana Desir [facility] Unavailable Livan Sharif MD Unavailable Catherine Cm MD Unavailable + Valery Veronica PA-C Unavailable [phone] Brea Quinn MATE RELIEF DIRECTOR OF SOCIAL WORK Unavailable Brea Quinn MATE RELIEF DIRECTOR OF SOCIAL WORK Unavailable [phone] Jose Francisco Johnson MD Unavailable Alfonso Renteria MD Unavailable [phone] Esha Grimm PA-C Primary Care Provider [phone] Radha Lomeli APRN DIRECTOR OF SOCIAL WORK Unavailable Jelena David OD Unavailable Pao Joseph RN Unavailable Unavailable Esha Grimm PA-C Unavailable [phone] Valery Veronica PA-C Unavailable Rey Tay MD Unavailable Rocky Zepeda DO Unavailable Philip Dumont MD Unavailable [phone] Meredith Carrera PA-C Unavailable [phone] Neil Kent MD Unavailable Juan Pablo Emmanuel MD Unavailable [phone] Audrey Waite PA-C Unavailable [phone] Valery Veronica PA-C Unavailable Herminia Hatch MD Unavailable Encounter Details Date Type Department Care Team (Late st Contact Info) Description 10/25/2023 [facility] Medical Advice [facility] Gastroenterology Clinic [address] [address] [place], RD [address] [place] [address] Social History Tobacco Use Types [...] you attend [facility] or religion services? 1 to 4 [...] PHQ-2 Score 0 10/25/2023 [facility] - [...] PM CDT Legal Sex Female 4:13 AM ROBOTIC WELDER Gender Identity Female 03/02/2021 5:45 PM CDT Sexual Orientation Straight 02/28/2020 12 :51 AM CDT documented as of this encounter Plan of Treatment Upcoming Encounters Date Type Department Care Team (Late st Contact Info) Description 10/23/2024 9:30 AM CDT Office Visit [facility] Neurology Clinics [address], [address] [place] [address] [place] [address] [place] [address] Johnny Penn MD [address] [place] [address] documented as of this encounter Visit Diagnoses Not on filedocumented in this encounter Additional Health Concerns Infection Onset Date Last Indicated Resolved Time Rule Out COVID-19 12/26/2023 12/26/2023 12/26/2023 9:50 AM CDT Rule Out COVID-19 04/09/2024 04/09/2024 04/10/2024 6:48 PM CDT Assessment Noted Time PHQ-9 Depression Total Score: 4 06/20/20 8:40 AM ROBOTIC WELDER documented as of this encounter Care Teams Test Grader Relationship Specialty Start Date End Date Esha Grimm PA-C [address] [place] [address] PCP - General Family Medicine 05/04/23 Diana Desir, [facility] 3033 [place] [address] Pharmacist Pharmacist 04/17/21 Rain Galaviz PA-C [address] [place] [address] [address] [place] [address] Physician Supervisor Keymodule Assembly Dermatology 04/28/21 Tavia Wyatt MD [address] [place] [address] [address] [place] [address] Dermatology 07/14/21 Erica Farrell APRN DIRECTOR OF SOCIAL WORK [address] [facility] [address] [place] [address] Nurse Practitioner Cardiovascular Disease 09/09/21 Rich Barrett MD 516 [facility] 9A [place] [address] Physician Ophthalmology 01/21/22 Neil Kent MD 500 [place] [address] Dermatology 02/24/22 Diana Desir, [facility] 3033 [place] [address] Assigned [place] Pharmacist 04/07/22 Livan Sharif MD [address] 040575 Cardiovascular Disease 05/14/22 Catherine Cm MD [address] 788815 Cardiovascular Disease 07/21/22 Valery Veronica, PA-C 909 [place] [address] Physician Supervisor Keymodule Assembly Dermatology 07/21/22 Brea Quinn APRN DIRECTOR OF SOCIAL WORK 500 [place] [address] Nurse Practitioner Dermatology 09/21/22 Brea Quinn APRN DIRECTOR OF SOCIAL WORK [address] [place] [address] Assigned Surgical Provider 10/09/22 05/01/24 [place] [address] [place] [address] [address] Assigned Musculoskeletal Provider 10/09/22 05/01/24 Alfonso Renteria MD 5775 [facility] [address] 200 [place] [address] Assigned Neuroscience Provider 04/02/23 Radha Lomeli APRN DIRECTOR OF SOCIAL WORK [address] [place] [address] Assigned Heart and Vascular Provider 05/28/23 Jelena David OD [address] [place] [address] MD Ophthalmology 06/15/23 Pao Joseph, VJ Personal Advocate & Liaison (PAL) Nurse 08/01/23 11/07/23 Esha Grimm PA-C [address] [place] [address] Assigned PCP 07/16/23 Valery Veronica PA-C [address] [place] [address] 007955 Physician Supervisor Keymodule Assembly Dermatology 09/19/23 Rey Tay MD [address] [place] [address] 478615 Gastroenterology 09/20/23 Rocky Zepeda DO [address] [place] [address] 396205 Physician Gastroenterology 09/20/23 Philip Dumont MD [address] [place] [address] 547945 Physician Ophthalmology 09/22/23 Meredith Carrera PA-C 909 [place] [address] Assigned Gastroenterology Provider 11/01/23 Neil Kent MD [address] [address] Dermatology 11/02/23 [place] [address] [place] [address] [address] Neurological Surgery 12/26/23 Audrey Waite PA-C 500 [place] [address] Physician Supervisor Keymodule Assembly Dermatology 02/28/24 Valery Veronica PA-C 461515 [address], [place] [address] Physician Supervisor Keymodule Assembly Dermatology 04/10/24 Herminia Hatch MD [facility]5 [place], [place] [address] Assigned Rheumatology Provider 07/02/24 documented as of this encounter
--- OUTSIDE RECORDS SUMMARY | 2024-08-28 18:25 | XMS_ITS | Encounter Summary ---
Author Organization [facility] Address [address] [place] [address] Care Team Providers Care Personal Property Assessor Name Role Phone Lita Oseguera Unavailable Unavailable Rakesh Cid PA-C Unavailable Marija Edgar APRN GRINDER SET UP OPERATOR Primary Care Provider + Chanelle Mccann APRN CN Unavailab le Lesley Guillermo CHW Unavailable [phone] Kyara De La Fuente RN Unavailable [phone] Marija Edgar APRN [facility] Unavailable [phone] Mynor Broussard MD Unavailable [phone] Keisha Dotson MD Unavailable Mary Mejia Unavailable Unavailable Stacey Briones [facility] Unavailable Lesley Guillermo CHW Unavailable [phone] Mary Mejia Unavailable Unavailable Lita Oseguera Unavailable Unavailable Galo Burrell MD Unavailable Unavailable Cristina Wood Unavailable Lesley Guillermo CHW Unavailable [phone] Meredith Bedoya Unavailable Unavailable Cristina Wood Unavailable Diana Desir [facility] Unavailable [phone] Rain Galaviz PA-C Unavailable Summer Lara MD Unavailable [phone] Summer Lara MD Unavailable [phone] Summer Lara MD Unavailable [phone] Tavia Wyatt MD Unavailable [phone] Johnny Murillo MD Unavailable +1- Erica Farrell APRN GRINDER SET UP OPERATOR Unavailable + Teresita Bean [facility] Unavailable Tavia Wyatt MD Unavailable [phone] Diana Desir [facility] Unavailable [phone] Rich Barrett MD Unavailable [phone] Neil Kent MD Unavailable Roney Story DPM Unavailable Erica Farrell APRN GRINDER SET UP OPERATOR Unavailable + Diana Desir [facility] Unavailable [phone] FrankieJelena OD Unavailable Galo Burrell MD Unavailable Unavailable Livan Sharif MD Unavailable + Livan Sharif MD Unavailable + Catherine Cm MD Unavailable + Valery Veronica PA-C Unavailable [phone] Catherine Cm MD Unavailable + Johnny Murillo MD Unavailable +1- Brea Quinn APRN GRINDER SET UP OPERATOR Unavailable [phone] [place], Brea P WATER ATTENDANT GRINDER SET UP OPERATOR Unavailable [phone] Jose Francisco Johnson MD Unavailable Livan Sharif MD Unavailable Catherine Cm MD Unavailable + Sydnie Martinez RN Unavailable Unavailable Alfonso Renteria MD Unavailable [phone] Esha Grimm PA-C Primary Care Provider Cheng Todd PA-C Unavailable Radha Lomeli WATER ATTENDANT GRINDER SET UP OPERATOR Unavailable Jelena David OD Unavailable Pao Joseph RN Unavailable Unavailable Esha Grimm PA-C Unavailable [phone] Valery Veronica PA-C Unavailable Rey Tay MD Unavailable Rocky Zepeda DO Unavailable Philip Dumont MD Unavailable Meredith Carrera PA-C Unavailable Neil Kent MD Unavailable Juan Pablo Emmanuel MD Unavailable Audrey Waite PA-C Unavailable [phone] Valery Veronica PA-C Unavailable Herminia Hatch MD Unavailable Encounter Details Date Type Department Care Team (Late st Contact Info) Description 06/05/2020 [facility] [address] [address] Marija Edgar APRN GRINDER SET UP OPERATOR [address] [place], [place] [address] Social [...] CDT Legal Sex Female 4:13 AM EQUIPMENT INSPECTOR Gender Identity Female 03/02/2021 5:45 PM CDT Sexual Orientation Straight 02/28/2020 12 :51 AM CDT COVID-19 Exposure Response Date Recorded In the last month, have you been in contact with someone who was confirmed or suspected to have Coronavirus / COVID-19? No / Unsure 06/04/2020 10:30 AM EQUIPMENT INSPECTOR documented as of this encounter Miscellaneous Notes * Telephone Encounter - Marija Edgar APRN CNP - 06/09/2020 9:38 AM EQUIPMENT INSPECTOR Those referrals have been placed. The mental health attempted call but patient did not answer. Please have patient check voicemail's or await one further follow-up call. They will call her to set up Holter monitor. Thank you Marija Edgar APRN CNP on 06/09/2020 at 9:40 AM PMENT INSPECTOR documented in this encounter Plan of Treatment Upcoming Encounters Date Type Department Care Team (Late st Contact Info) Description 10/23/2024 9:30 AM CDT Office Visit [facility] [place] [address] [place] [address], [address] [place] [address] [place] [address] [address] [place] [address] Johnny Penn MD [address] [facility] [place] [address] documented as of this encounter Visit Diagnoses Not on filedocumented in this encounter Additional Health Concerns Infection Onset Date Last Indicated Resolved Time Rule Out COVID-19 07/30/2020 07/30/2020 07/30/2020 7:11 PM EQUIPMENT INSPECTOR Rule Out COVID-19 08/30/2020 08/30/2020 08/30/2020 5:05 PM EQUIPMENT INSPECTOR Rule Out COVID-19 09/24/2020 09/24/2020 09/24/2020 9:24 AM CDT Rule Out COVID-19 11/05/2020 11/05/2020 11/06/2020 1:09 PM CDT Rule Out COVID-19 05/11/2021 05/11/2021 05/13/2021 10:18 AM CDT Rule Out COVID-19 07/13/2021 07/13/2021 07/14/2021 3:04 PM EQUIPMENT INSPECTOR Rule Out COVID-19 07/18/2021 07/18/2021 07/20/2021 1:56 PM EQUIPMENT INSPECTOR COVID-19 07/18/2021 07/18/2021 08/08/2021 11:3 9 PM EQUIPMENT INSPECTOR Rule Out COVID-19 12/18/2021 12/18/2021 12/19/2021 11:34 AM CDT Rule Out COVID-19 02/24/2022 02/24/2022 02/25/2022 1:08 PM CDT Rule Out COVID-19 04/26/2022 04/26/2022 04/26/2022 6:47 AM CDT Rule Out COVID-19 05/17/2022 05/17/2022 05/17/2022 10:20 PM EQUIPMENT INSPECTOR Rule Out COVID-19 06/09/2022 06/09/2022 06/09/2022 9:35 AM EQUIPMENT INSPECTOR COVID-19 06/09/2022 06/09/2022 06/30/2022 11:4 1 PM EQUIPMENT INSPECTOR Rule Out COVID-19 11/10/2022 11/10/2022 11/11/2022 12:17 PM CDT Rule Out COVID-19 03/07/2023 03/07/2023 03/07/2023 1:20 PM CDT Rule Out COVID-19 12/26/2023 12/26/2023 12/26/2023 9:50 AM CDT Rule Out COVID-19 04/09/2024 04/09/2024 04/10/2024 6:48 PM CDT Assessment Noted Time PHQ-9 Depression Total Score: 9 06/04/20 10:35 AM EQUIPMENT INSPECTOR documented as of this encounter Care Teams Personal Property Assessor Relationship Specialty Start Date End Date Marija Edgar APRN GRINDER SET UP OPERATOR [address] [place] [address] PCP - General Nurse Practitioner 04/30/20 04/14/23 Esha Grimm PA-C [address] [place] [phone] PCP - General Family Medicine 05/04/23 Lita Oseguera Personal Advocate & Liaison (PAL) 02/28/20 03/27/23 Rakesh Cid PA-C [address] [place] [address] Assigned PCP 03/02/20 06/07/20 Chanelle Mccann APRN CNM [address] [address] Assigned OBGYN Provider 05/02/2005/09 Lesley Guillermo CHW Community Health Worker 05/30/2005/12 Kyara De La Fuente, RN Specialty Geographic Information Scientist Neurology 06/04/20 03/05/21 Marija Edgar APRN GRINDER SET UP OPERATOR [address] [place] [address] Assigned PCP 06/08/20 04/29/23 Mynor Broussard MD [address] [address] Assigned Surgical Provider 06/01/20 11/28/21 Keisha Dotson MD [address] [place] [address] Assigned Neuroscience Provider 06/04/20 04/01/23 Mary Mejia Financial Resource Worker 08/07/20 08/21/20 Stacey Briones, [facility] Lead Geographic Information Scientist Primary Care - CC 08/11/2012/30 Lesley Guillermo, [facility] Community Health Worker 08/11/2010/01 Mary Mejia Financial Resource Worker 09/02/20 10/06/20 Lita Oseguera Personal Advocate & Liaison (PAL) Family Medicine 09/10/20 09/21/20 Galo Burrell MD Assigned Heart and Vascular Provider 10/05/20 04/02/22 Cristina Wood Financial Resource Worker 10/07/20 10/14/20 Lesley Guillermo, [facility] Community Health Worker 10/23/2012/30 Meredith Bedoya Financial Resource Worker 10/23/20 11/23/20 Cristina Wood Financial Resource Worker 02/09/21 02/09/21 Diana Desir, [facility] [address] [place] [address] Pharmacist Pharmacist 04/17/21 Rain Galaviz PA-C [address] [place] [address] [place] [address] Physician Verification Specialist Dermatology 04/28/21 Summer Lara MD [address] [place] [address] Assigned OBGYN Provider 05/10/2105/23 Summer Lara MD [address] [place] [address] 194004 Assigned OBGYN Provider 05/31/21 Summer Lara MD [address] [place] [address] Assigned OBGYN Provider 05/24/2105/30 Tavia Wyatt MD [address] [place] [address] [place], [place] 894[address] Dermatology 07/14/21 Johnny Murillo MD [address] [place] [address] Assigned Musculoskeletal Provider 08/30/21 03/17/22 Erica Farrell APRN GRINDER SET UP OPERATOR [address] [facility] [address] [place] [phone] Nurse Practitioner Cardiovascular Disease 09/09/21 Teresita Bean, [facility] [address] [place] [address] Pharmacist Pharmacist 09/24/21 09/29/21 Tavia Wyatt MD [address] [place] [address] Assigned Surgical Provider 11/29/21 05/07/22 Diana Desir, [facility] [address] [place] [address] Assigned MTM Pharmacist 01/02/22 Rich Barrett MD [address] [address] Physician Ophthalmology 01/21/22 Neil Kent MD [address] [place], [place] [address] Dermatology 02/24/22 Roney Story DPM [address] [facility] [address] [place], [place] 454[address] Assigned Musculoskeletal Provider 03/20/22 08/13/22 Erica Farrell APRN GRINDER SET UP OPERATOR [address] [place] [address] Assigned Heart and Vascular Provider 04/03/22 04/16/22 Diana Desir, [facility] [address] [place] [address] Assigned MTM Pharmacist 04/07/22 Jelena David OD [address] [facility] [place] [address] Assigned Surgical Provider 05/08/22 10/08/22 Galo Burrell MD Assigned Heart and Vascular Provider 04/17/22 06/11/22 Livan Sharif MD [address] [place] [address] Cardiovascular Disease 05/14/22 Livan Sharif MD [address] [place] [address] Assigned Heart and Vascular Provider 06/12/22 07/23/22 Catherine Cm MD [address] [place] [address] Cardiovascular Disease 07/21/22 Valery Veronica, PA-C [address] [place] [phone] Physician Verification Specialist Dermatology 07/21/22 Catherine Cm MD [address] [place] [address] Assigned Heart and Vascular Provider 07/24/22 11/05/22 Johnny Murillo MD [facility] [place] [address] 540334 Assigned Musculoskeletal Provider 08/14/22 10/08/22 Brea Quinn APRN GRINDER SET UP OPERATOR [address] [place] [address] 216555 Nurse Practitioner Dermatology 09/21/22 Brea Quinn APRN GRINDER SET UP OPERATOR [address] [place] [address] Assigned Surgical Provider 10/09/22 05/01/24 [place] [address] [place] [address] Assigned Musculoskeletal Provider 10/09/22 05/01/24 Livan Sharif MD [address] [facility] [address] [place] [address]89[address] Assigned Heart and Vascular Provider 11/06/22 11/12/22 Catherine Cm MD [address] [facility] [place] [address] Assigned Heart and Vascular Provider 11/13/22 05/27/23 Sydnie Martinez, RN Personal Advocate & Liaison (PAL) Family Medicine 03/28/23 07/31/23 Alfonso Renteria MD [address] [facility] [address] [place] [address] Assigned Neuroscience Provider 04/02/23 Cheng Todd PA-C [address] [place] [address] Assigned PCP 04/30/23 07/15/23 Radha Lomeli APRN GRINDER SET UP OPERATOR [address] [place] [address] Assigned Heart and Vascular Provider 05/28/23 Jelena David OD [address] [place] [address] MD Ophthalmology 06/15/23 Pao Joseph, RN Personal Advocate & Liaison (PAL) Nurse 08/01/23 11/07/23 Esha Grimm PA-C [address] [place] [address] Assigned PCP 07/16/23 Valery Veronica PA-C [address] [place] [address] 756005 Physician Verification Specialist Dermatology 09/19/23 Rey Tay MD [address] [place] [address] [id number] MD Gastroenterology 09/20/23 Rocky Zepeda DO [address] [place] [address] [id number] Physician Gastroenterology 09/20/23 Philip Dumont MD [address] [place] [address] 111715 Physician Ophthalmology 09/22/23 Meredith Carrera PA-C [address] [place] [address] Assigned Gastroenterology Provider 11/01/23 Neil Kent MD [address] [address] Dermatology 11/02/23 [place] [address] [place] [address] Neurological Surgery 12/26/23 Audrey Waite PA-C [address] [place] [address] Physician Verification Specialist Dermatology 02/28/24 Valery Veronica PA-C [address] [place] [address] Physician Verification Specialist Dermatology 04/10/24 Herminia Hatch MD [address] [place] [address] [id number] Assigned Rheumatology Provider 07/02/24 documented as of this encounter
--- OUTSIDE RECORDS SUMMARY | 2024-08-28 18:25 | XMS_ITS | Encounter Summary ---
Author Organization [facility] Address [address] [place] [id number] Care Team Providers Care Tea Taster Name Role Phone Lita Oseguera Unavailable Unavailable Rakesh Cid PA-C Unavailable [phone] Marija Edgar APRN MANAGER DEPARTMENT Primary Care Provider + Chanelle Mccann APRN CN Unavailab le Lesley Guillermo CHW Unavailable [phone] Kyara De La Fuente RN Unavailable [phone] Marija dEgar APRN [facility] Unavailable Mynor Broussard MD Unavailable [phone] Keisha Dotson MD Unavailable Mary Mejia Unavailable Unavailable Stacey Briones DE IONIZER OPERATOR Unavailable [phone] Lesley Guillermo CHW Unavailable [phone] Mary Mejia Unavailable Unavailable Lita Oseguera Unavailable Unavailable Galo Burrell MD Unavailable Unavailable Cristina Wood Unavailable Lesley Guillermo CHW Unavailable [phone] Meredith Bedoya Unavailable Unavailable Cristina Wood Unavailable Diana Desir [facility] Unavailable [phone] Rain Galaviz PA-C Unavailable Summer Lara MD Unavailable [phone] Summer Lara MD Unavailable Summer Lara MD Unavailable [phone] Tavia Wyatt MD Unavailable [phone] Johnny Murillo MD Unavailable +[phone]- Erica Farrell APRN MANAGER DEPARTMENT Unavailable + Teresita Bean [facility] Unavailable Tavia Wyatt MD Unavailable [phone] Diana Desir [facility] Unavailable [phone] Rich Barrett MD Unavailable [phone] Neil Kent MD Unavailable Roney Story DPM Unavailable Erica Farrell APRN MANAGER DEPARTMENT Unavailable + Diana Desir [facility] Unavailable [phone] FrankieJelena OD Unavailable [phone] Galo Burrell MD Unavailable Unavailable Livan Sharif MD Unavailable + Livan Sharif MD Unavailable + Catherine Cm MD Unavailable + Valery Veronica PA-C Unavailable [phone] Catherine Cm MD Unavailable + Johnny Murillo MD Unavailable +1- Brea Quinn APRN MANAGER DEPARTMENT Unavailable +[phone] [place], Brea P KEY FILER MANAGER DEPARTMENT Unavailable Jose Francisco Johnson MD Unavailable Livan Sharif MD Unavailable Catherine Cm MD Unavailable + Sydnie Martinez RN Unavailable Unavailable Alfonso Renteria MD Unavailable [phone] Esha Grimm PA-C Primary Care Provider Cheng Todd PA-C Unavailable LomeliRadha KEY FILER MANAGER DEPARTMENT Unavailable Jelena David OD Unavailable Pao Joseph RN Unavailable Unavailable Esha Grimm PA-C Unavailable [phone] Valery Veronica PA-C Unavailable Rey Tay MD Unavailable Rocky Zepeda DO Unavailable Philip Dumont MD Unavailable Meredith Carrera PA-C Unavailable Neil Kent MD Unavailable Juan Pablo Emmanuel MD Unavailable [phone] Audrey Waite PA-C Unavailable Valery Veronica PA-C Unavailable [phone] Herminia Hatch MD Unavailable Encounter Details Date Type Department Care Team (Late st Contact Info) Description 05/16/2020 MyC Medical Advice [facility] [id number] [place] [phone] Jerome Ferrell, RN Social History Tobacco [...] PM CDT Legal Sex Female 4:13 AM ENROLLMENT SERVICES VICE PRESIDENT Gender Identity Female 03/02/2021 5:45 PM CDT Sexual Orientation Straight 02/28/2020 12 :51 AM CDT COVID-19 Exposure Response Date Recorded In the last month, have you been in contact with someone who was confirmed or suspected to have Coronavirus / COVID-19? No / Unsure 05/12/2020 9:03 AM ENROLLMENT SERVICES VICE PRESIDENT documented as of this encounter Plan of Treatment Upcoming Encounters Date Type Department Care Team (Late st Contact Info) Description 10/23/2024 9:30 AM CDT Office Visit [facility] Neurology [address], [address] [place] [address] [place] [address] [place] [address] [id number] Johnny Penn MD [address] [place] [id number] documented as of this encounter Visit Diagnoses Not on filedocumented in this encounter Additional Health Concerns Infection Onset Date Last Indicated Resolved Time Rule Out COVID-19 07/30/2020 07/30/2020 07/30/2020 7:11 PM ENROLLMENT SERVICES VICE PRESIDENT Rule Out COVID-19 08/30/2020 08/30/2020 08/30/2020 5:05 PM ENROLLMENT SERVICES VICE PRESIDENT Rule Out COVID-19 09/24/2020 09/24/2020 09/24/2020 9:24 AM CDT Rule Out COVID-19 11/05/2020 11/05/2020 11/06/2020 1:09 PM CDT Rule Out COVID-19 05/11/2021 05/11/2021 05/13/2021 10:18 AM CDT Rule Out COVID-19 07/13/2021 07/13/2021 07/14/2021 3:04 PM ENROLLMENT SERVICES VICE PRESIDENT Rule Out COVID-19 07/18/2021 07/18/2021 07/20/2021 1:56 PM ENROLLMENT SERVICES VICE PRESIDENT COVID-19 07/18/2021 07/18/2021 08/08/2021 11:3 9 PM ENROLLMENT SERVICES VICE PRESIDENT Rule Out COVID-19 12/18/2021 12/18/2021 12/19/2021 11:34 AM CDT Rule Out COVID-19 02/24/2022 02/24/2022 02/25/2022 1:08 PM CDT Rule Out COVID-19 04/26/2022 04/26/2022 04/26/2022 6:47 AM CDT Rule Out COVID-19 05/17/2022 05/17/2022 05/17/2022 10:20 PM ENROLLMENT SERVICES VICE PRESIDENT Rule Out COVID-19 06/09/2022 06/09/2022 06/09/2022 9:35 AM ENROLLMENT SERVICES VICE PRESIDENT COVID-19 06/09/2022 06/09/2022 06/30/2022 11:4 1 PM ENROLLMENT SERVICES VICE PRESIDENT Rule Out COVID-19 11/10/2022 11/10/2022 11/11/2022 12:17 PM CDT Rule Out COVID-19 03/07/2023 03/07/2023 03/07/2023 1:20 PM CDT Rule Out COVID-19 12/26/2023 12/26/2023 12/26/2023 9:50 AM CDT Rule Out COVID-19 04/09/2024 04/09/2024 04/10/2024 6:48 PM CDT Assessment Noted Time PHQ-9 Depression Total Score: 020 2:40 PM CDT documented as of this encounter Care Teams Tea Taster Relationship Specialty Start Date End Date Marija Edgar APRN MANAGER DEPARTMENT [id number] [address] [address] PCP - General Nurse Practitioner 04/30/20 04/14/23 Esha Grimm PA-C [address] [place] [phone] PCP - General Family Medicine 05/04/23 Lita Oseguera Personal Advocate & Liaison (PAL) 02/28/20 03/27/23 Rakesh Cid PA-C [address] [facility] [address] Assigned PCP 03/02/20 06/07/20 Chanelle Mccann APRN CNM [address] [place] [address] [address] [place] [address] Assigned OBGYN Provider 05/02/2005/09 Lesley Guillermo W Community Health Worker 05/30/2005/12 Kyara De La Fuente, RN Specialty Tax Clerk Neurology 06/04/20 03/05/21 Marija Edgar APRN MANAGER DEPARTMENT [address] [place] [address] Assigned PCP 06/08/20 04/29/23 Mynor Broussard MD [address] [facility] [address] [place] [address] Assigned Surgical Provider 06/01/20 11/28/21 Keisha Dotson MD 9 [place] [address] Assigned Neuroscience Provider 06/04/20 04/01/23 Mary Mejia Financial Resource Worker 08/07/20 08/21/20 Stacey Briones, [facility] Lead Tax Clerk Primary Care - CC 08/11/2012/30 Lesley Guillermo, [facility] Community Health Worker 08/11/2010/01 Mary Mejia Financial Resource Worker 09/02/20 10/06/20 Lita Oseguera Personal Advocate & Liaison (PAL) Family Medicine 09/10/20 09/21/20 Galo Burrell MD Assigned Heart and Vascular Provider 10/05/20 04/02/22 Cristina Wood Financial Resource Worker 10/07/20 10/14/20 Lesley Guillermo, [facility] Community Health Worker 10/23/2012/30 Meredith Bedoya Financial Resource Worker 10/23/20 11/23/20 Cristina Wood Financial Resource Worker 02/09/21 02/09/21 Diana Desir, [facility] [address] [facility] [place], [place] [phone] Pharmacist Pharmacist 04/17/21 Rain Galaviz PA-C [address] [place] [address] [address] [place], [place] [phone] Physician [facility]ver Dermatology 04/28/21 Summer Lara MD [address] [place] [address] Assigned OBGYN Provider 05/10/2105/23 Summer Lara MD [address] [place] [address] Assigned OBGYN Provider 05/31/21 2 Summer Lara MD [address] [facility] [address] [place], [place] 59[address]64 Assigned OBGYN Provider 05/24/2105/30 Tavia Wyatt MD [address] [place], [place] [address] Dermatology 07/14/21 Johnny Murillo MD [address] [place], [place] 45[address] Assigned Musculoskeletal Provider 08/30/21 03/17/22 Erica Farrell APRN MANAGER DEPARTMENT [address] [facility] [address] [place] [address] Nurse Practitioner Cardiovascular Disease 09/09/21 Teresita Bean [facility] [address] [place], [place] [phone] Pharmacist Pharmacist 09/24/21 09/29/21 Tavia Wyatt MD [address] [place], [place] 1479[address] Assigned Surgical Provider 11/29/21 05/07/22 Diana Desir, [facility] [address] [place], [place] [address] Assigned MTM Pharmacist 01/02/22 Rich Barrett MD [address] [address] Physician Ophthalmology 01/21/22 Neil Kent MD 500 [place] [address] Dermatology 02/24/22 Roney Story DPM [address] [facility] [address] [place], [place] [address] Assigned Musculoskeletal Provider 03/20/22 08/13/22 Erica Farrell APRN MANAGER DEPARTMENT [address] [place] [address] Assigned Heart and Vascular Provider 04/03/22 04/16/22 [facility] [address] [place] [address] Assigned MTM Pharmacist 04/07/22 Jelena David OD [address] [facility] [place] [address] Assigned Surgical Provider 05/08/22 10/08/22 Galo Burrell MD Assigned Heart and Vascular Provider 04/17/22 06/11/22 Livan Sharif MD [address] [place] [id number] Cardiovascular Disease 05/14/22 Livan Sharif MD [address] [place] [address] Assigned Heart and Vascular Provider 06/12/22 07/23/22 Catherine Cm MD [address] [place] [address] Cardiovascular Disease 07/21/22 Valery Veronica PA-C [address] [place] [address] Physician [facility] Dermatology 07/21/22 Catherine Cm MD [address] [place] [phone] Assigned Heart and Vascular Provider 07/24/22 11/05/22 Johnny Murillo MD [facility] 429164 Assigned Musculoskeletal Provider 08/14/22 10/08/22 Brea Quinn APRN MANAGER DEPARTMENT [address] [place] [address] [id number] Nurse Practitioner Dermatology 09/21/22 Brea Quinn APRN MANAGER DEPARTMENT [address] [place] [address] [place] [address] Assigned Surgical Provider 10/09/22 05/01/24 [place] [address] [place] [address] [place] [address] Assigned Musculoskeletal Provider 10/09/22 05/01/24 Livan Sharif MD [address], [facility] [address] [place] [id number] Assigned Heart and Vascular Provider 11/06/22 11/12/22 Catherine Cm MD [address] [place] [address] Assigned Heart and Vascular Provider 11/13/22 05/27/23 Sydnie Martinez RN Personal Advocate & Liaison (PAL) Family Medicine 03/28/23 07/31/23 Alfonso Renteria MD 5775 [facility] 200 [place], [place] 410736 Assigned Neuroscience Provider 04/02/23 Cheng Todd PA-C [address] [place] [address] [phone] Assigned PCP 04/30/23 07/15/23 Radha Lomeli, KEY FILER MANAGER DEPARTMENT [address] [place] [address] Assigned Heart and Vascular Provider 05/28/23 Jelena David OD [address] [facility] [place] [address] Ophthalmology 06/15/23 Pao Joseph, VJ Personal Advocate & Liaison (PAL) Nurse 08/01/23 11/07/23 Esha Grimm PA-C [address] [place] [phone] Assigned PCP 07/16/23 Valery Veronica PA-C [address] [place], [place] 640925 Physician [facility] Dermatology 09/19/23 Rey Tay MD [address] [place], [place] 4725[address] MD Gastroenterology 09/20/23 Rocky Zepeda DO [address] [place] [address] Physician Gastroenterology 09/20/23 Philip Dumont MD [address] [place], [place] 344585 Physician Ophthalmology 09/22/23 Meredith Carrera PA-C [address] [place], [place] 4[address] Assigned Gastroenterology Provider 11/01/23 Neil Kent MD [address] [place] [address] [phone] Dermatology 11/02/23 [place] [address] [place] [address] 337997 Neurological Surgery 12/26/23 Audrey Waite PA-C [address] [place] [address] Physician [facility] Dermatology 02/28/24 Valery Veronica PA-C 028641 [address], [place] [address] Physician [facility] Dermatology 04/10/24 Herminia Hatch MD [facility]5 [place] [address] Assigned Rheumatology Provider 07/02/24 documented as of this encounter
--- OUTSIDE RECORDS SUMMARY | 2024-08-28 18:25 | XMS_ITS | Encounter Summary ---
Author Organization [facility] Address [address] [place] [address] Care Team Providers Care Gusset Stitcher Name Role Phone Lita Oseguera Unavailable Unavailable Rakesh Cid PA-C Unavailable Marija Edgar APRN INVESTIGATIVE ASSISTANT Primary Care Provider + Chanelle Mccann APRN CN Unavailab le Lesley Guillermo CHW Unavailable [phone] Kyara De La Fuente RN Unavailable Marija Edgar APRN [facility] Unavailable Mynor Broussard MD Unavailable Keisha Dotson MD Unavailable Mary Mejia Unavailable Unavailable Stacey Briones ROUGH RICE GRADER Unavailable Lesley Guillermo CHW Unavailable [phone] Mary Mejia Unavailable Unavailable Lita Oseguera Unavailable Unavailable Galo Burrell MD Unavailable Unavailable Cristina Wood Unavailable Lesley Guillermo CHW Unavailable [phone] Meredith Bedoya Unavailable Unavailable Cristina Wood Unavailable Diana Desir [facility] Unavailable [phone] Rain Galaviz PA-C Unavailable Summer Lara MD Unavailable [phone] Summer Lara MD Unavailable [phone] Summer Lara MD Unavailable [phone] Tavia Wyatt MD Unavailable [phone] Johnny Murillo MD Unavailable +1- Erica Farrell APRN INVESTIGATIVE ASSISTANT Unavailable + Teresita Baen [facility] Unavailable Tavia Wyatt MD Unavailable [phone] Diana Desir [facility] Unavailable [phone] Rich Barrett MD Unavailable [phone] Neil Kent MD Unavailable Roney Story DPM Unavailable Erica Farrell APRN INVESTIGATIVE ASSISTANT Unavailable + Diana Desir [facility] Unavailable [phone] FrankieJelena OD Unavailable Galo Burrell MD Unavailable Unavailable Livan Sharif MD Unavailable + Livan Sharif MD Unavailable + Catherine Cm MD Unavailable + Valery Veronica PA-C Unavailable [phone] Catherine Cm MD Unavailable + Johnny Murillo MD Unavailable +1- Brea Quinn APRN INVESTIGATIVE ASSISTANT Unavailable +[phone] [place], Brea P PERSONAL DEVELOPMENT MENTOR INVESTIGATIVE ASSISTANT Unavailable Jose Francisco Johnson MD Unavailable Livan Sharif MD Unavailable Catherine Cm MD Unavailable + Sydnie Martinez RN Unavailable Unavailable Alfonso Renteria MD Unavailable [phone] Esha Grimm PA-C Primary Care Provider Cheng Todd PA-C Unavailable Armani Radha Stovall PERSONAL DEVELOPMENT [place] INVESTIGATIVE ASSISTANT Unavailable Jelena David OD Unavailable Pao Joseph RN Unavailable Unavailable Esha Grimm PA-C Unavailable [phone] Valery Veronica PA-C Unavailable Rey Tay MD Unavailable Rocky Zepeda DO Unavailable Philip Dumont MD Unavailable [phone] Meredith Carrera PA-C Unavailable [phone] Neil Kent MD Unavailable Juan Pablo Emmaneul MD Unavailable [phone] Audrey Waite PA-C Unavailable Valery Veronica PA-C Unavailable [phone] Herminia Hatch MD Unavailable Reason for Visit * Reason Onset Date Comments Referral 05/19/2020 Encounter Details Date Type Department Care Team (Late st Contact Info) Description 05/19/2020 [facility] [address], [address] [place] [address] Unknown Referral Social History Tobacco [...] PM CDT Legal Sex Female 4:13 AM APPAREL DESIGNER Gender Identity Female 03/02/2021 5:45 PM CDT Sexual Orientation Straight 02/28/2020 12 :51 AM CDT COVID-19 Exposure Response Date Recorded In the last month, have you been in contact with someone who was confirmed or suspected to have Coronavirus / COVID-19? No / Unsure 05/12/2020 9:03 AM APPAREL DESIGNER documented as of this encounter Miscellaneous Notes * Telephone Encounter - McphersonJolene stovall - 05/19/2020 2:02 PM CST [facility] Phone Message May a detailed message be left on voicemail: yes Reason for Call: Appointment Intake Referring Provider Name: Marija Edgar APRN CNP in FAMILY PRACTICE Diagnosis and/or Symptoms: History of Seizures Being referred to [facility]. Please review. Thanks. Action Taken: Other: [facility] Travel Screening: Not Applicable REL DESIGNER documented in this encounter Plan of Treatment Upcoming Encounters Date Type Department Care Team (Late st Contact Info) Description 10/23/2024 9:30 AM CDT Office Visit [facility] - [address], [address] [place] [address] [place] [address] [place] [address] Johnny Penn MD [address] [facility] [place] [address] documented as of this encounter Visit Diagnoses Not on filedocumented in this encounter Additional Health Concerns Infection Onset Date Last Indicated Resolved Time Rule Out COVID-19 07/30/2020 07/30/2020 07/30/2020 7:11 PM APPAREL DESIGNER Rule Out COVID-19 08/30/2020 08/30/2020 08/30/2020 5:05 PM APPAREL DESIGNER Rule Out COVID-19 09/24/2020 09/24/2020 09/24/2020 9:24 AM CDT Rule Out COVID-19 11/05/2020 11/05/2020 11/06/2020 1:09 PM CDT Rule Out COVID-19 05/11/2021 05/11/2021 05/13/2021 10:18 AM CDT Rule Out COVID-19 07/13/2021 07/13/2021 07/14/2021 3:04 PM APPAREL DESIGNER Rule Out COVID-19 07/18/2021 07/18/2021 07/20/2021 1:56 PM APPAREL DESIGNER COVID-19 07/18/2021 07/18/2021 08/08/2021 11:3 9 PM APPAREL DESIGNER Rule Out COVID-19 12/18/2021 12/18/2021 12/19/2021 11:34 AM CDT Rule Out COVID-19 02/24/2022 02/24/2022 02/25/2022 1:08 PM CDT Rule Out COVID-19 04/26/2022 04/26/2022 04/26/2022 6:47 AM CDT Rule Out COVID-19 05/17/2022 05/17/2022 05/17/2022 10:20 PM APPAREL DESIGNER Rule Out COVID-19 06/09/2022 06/09/2022 06/09/2022 9:35 AM APPAREL DESIGNER COVID-19 06/09/2022 06/09/2022 06/30/2022 11:4 1 PM APPAREL DESIGNER Rule Out COVID-19 11/10/2022 11/10/2022 11/11/2022 12:17 PM CDT Rule Out COVID-19 03/07/2023 03/07/2023 03/07/2023 1:20 PM CDT Rule Out COVID-19 12/26/2023 12/26/2023 12/26/2023 9:50 AM CDT Rule Out COVID-19 04/09/2024 04/09/2024 04/10/2024 6:48 PM CDT Assessment Noted Time PHQ-9 Depression Total Score: 6 08/28/19 21 7:05 AM APPAREL DESIGNER documented as of this encounter Care Teams Gusset Stitcher Relationship Specialty Start Date End Date Marija Edgar APRN INVESTIGATIVE ASSISTANT [address] [place] [address] PCP - General Nurse Practitioner 04/30/20 04/14/23 Esha Grimm PA-C [address] [place] [phone] PCP - General Family Medicine 05/04/23 Lita Oseguera Personal Advocate & Liaison (PAL) 02/28/20 03/27/23 Rakesh Cid PA-C [address] [place] [address] Assigned PCP 03/02/20 06/07/20 Chanelle Mccann APRN CNM [address] [address] Assigned OBGYN Provider 05/02/2005/09 Lesley Guillermo CHW Community Health Worker 05/30/2005/12 Kyara De La Fuente, RN Specialty Olive Pitter Neurology 06/04/20 03/05/21 Marija Edgar APRN INVESTIGATIVE ASSISTANT [address] [place] [address] Assigned PCP 06/08/20 04/29/23 Mynor Broussard MD [address] [facility] [address] [place], [place] [id number] Assigned Surgical Provider 06/01/20 11/28/21 Keisha Dotson MD [address] [place], [place] [address] Assigned Neuroscience Provider 06/04/20 04/01/23 Mary Mejia Financial Resource Worker 08/07/20 08/21/20 Stacey Briones, [facility] Lead Olive Pitter Primary Care - CC 08/11/2012/30 Lesley Guillermo, [facility] Community Health Worker 08/11/2010/01 Mary Mejia Financial Resource Worker 09/02/20 10/06/20 Lita Oseguera Personal Advocate & Liaison (PAL) Family Medicine 09/10/20 09/21/20 Galo Burrell MD Assigned Heart and Vascular Provider 10/05/20 04/02/22 Cristina Wood Financial Resource Worker 10/07/20 10/14/20 Lesley Guillermo, [facility] Community Health Worker 10/23/2012/30 Meredith Bedoya Financial Resource Worker 10/23/20 11/23/20 Cristina Wood Financial Resource Worker 02/09/21 02/09/21 Diana Desir, [facility] [address] [place] [address] Pharmacist Pharmacist 04/17/21 Rain Galaviz PA-C [address] [place] [address] [address] [facility] [place] [address] Physician Pet Trainer Dermatology 04/28/21 Summer Lara MD [address] [place] [address] Assigned OBGYN Provider 05/10/2105/23 Summer Lara MD [address] [place] [address] Assigned OBGYN Provider 05/31/21 Summer Lara MD [address] [place] [address] Assigned OBGYN Provider 05/24/2105/30 Tavia Wyatt MD [address] [place] [address] Dermatology 07/14/21 Johnny Murillo MD [address] [facility] [address] [place] [address] Assigned Musculoskeletal Provider 08/30/21 03/17/22 Erica Farrell APRN INVESTIGATIVE ASSISTANT [address] [facility] [address] [place] [address] Nurse Practitioner Cardiovascular Disease 09/09/21 Teresita Bean [facility] [address] [place] [address] Pharmacist Pharmacist 09/24/21 09/29/21 Tavia Wyatt MD [address] [place] [address] Assigned Surgical Provider 11/29/21 05/07/22 Diana Desir, [facility] [address] [place] [address] Assigned MTM Pharmacist 01/02/22 Rich Barrett MD [address] [phone] Physician Ophthalmology 01/21/22 Neil Kent MD [address] [place] [address] Dermatology 02/24/22 Roney Story DPM [address] [facility] [address] [place] [address] Assigned Musculoskeletal Provider 03/20/22 08/13/22 Erica Farrell APRN INVESTIGATIVE ASSISTANT [address] [place] [address] Assigned Heart and Vascular Provider 04/03/22 04/16/22 Diana Desir, [facility] [address] [place] [address] Assigned MTM Pharmacist 04/07/22 Jelena David OD [address] [place] [address] [place] [address] Assigned Surgical Provider 05/08/22 10/08/22 Galo Burrell MD Assigned Heart and Vascular Provider 04/17/22 06/11/22 Livan Sharif MD [address], [facility] [address] [place] [address] Cardiovascular Disease 05/14/22 Livan Sharif MD [address], [facility] [address] [place] 412385 Assigned Heart and Vascular Provider 06/12/22 07/23/22 Catherine Cm MD [address] [facility]00 [place] 214675 Cardiovascular Disease 07/21/22 Valery Veronica, PAUcheC [address] [place] [address] [phone] Physician Pet Trainer Dermatology 07/21/22 Catherine Cm MD [address] [facility]00 [place] [phone] Assigned Heart and Vascular Provider 07/24/22 11/05/22 Johnny Murillo MD [address] [place] [address] [phone] Assigned Musculoskeletal Provider 08/14/22 10/08/22 Brea Quinn APRN INVESTIGATIVE ASSISTANT [address] [place] [address] [phone] Nurse Practitioner Dermatology 09/21/22 Brea Quinn APRN INVESTIGATIVE ASSISTANT [address] [place] [address] [place] [phone] Assigned Surgical Provider 10/09/22 05/01/24 [place] [address] [place] [address] Assigned Musculoskeletal Provider 10/09/22 05/01/24 Livan Sharif MD [address] [facility] [address] [place] [address] Assigned Heart and Vascular Provider 11/06/22 11/12/22 Catherine Cm MD [address] [facility] [address] [place] [address] Assigned Heart and Vascular Provider 11/13/22 05/27/23 Sydnie Martinez RN Personal Advocate & Liaison (PAL) Family Medicine 03/28/23 07/31/23 Alfonso Renteria MD [address] [facility] [address] [place] [address] Assigned Neuroscience Provider 04/02/23 Cheng Todd PA-C [address] [place] [address] [phone] Assigned PCP 04/30/23 07/15/23 Radha Lomeli APRN INVESTIGATIVE ASSISTANT [address] [place] [address] Assigned Heart and Vascular Provider 05/28/23 Jelena Dvaid OD [address] [facility] [place] [address] MD Ophthalmology 06/15/23 Pao Joseph, RN Personal Advocate & Liaison (PAL) Nurse 08/01/23 11/07/23 Esha Grimm PA-C [address] [place] [phone] Assigned PCP 07/16/23 Valery Veronica PA-C [address] [place] [address] [phone] Physician Pet Trainer Dermatology 09/19/23 Rey Tay MD [address] [place] [address] [phone] MD Gastroenterology 09/20/23 Rocky Zepeda DO [address] [place] [address] [phone] Physician Gastroenterology 09/20/23 Philip Dumont MD [address] [place] [address] [phone] Physician Ophthalmology 09/22/23 Meredith Carrera PA-C [address] [place] [address] 802155 Assigned Gastroenterology Provider 11/01/23 Neil Kent MD [address] [phone] Dermatology 11/02/23 [place] [address] [place] [address] Neurological Surgery 12/26/23 Audrey Waite PA-C [address] [place] [address] Physician Pet Trainer Dermatology 02/28/24 Valery Veronica PA-C [address] [place] [address] Physician Pet Trainer Dermatology 04/10/24 eHrminia Hatch MD [address] [place] [address] [phone] Assigned Rheumatology Provider 07/02/24 documented as of this encounter
--- OUTSIDE RECORDS SUMMARY | 2024-08-28 18:25 | XMS_ITS | Encounter Summary ---
Author Organization [facility] [address] [place] [address] Care Team Providers Care Nuclear Weapons Mechanical Specialist Name Role Phone Lita Oseguera Unavailable Unavailable Rakesh Cid PA-C Unavailable Marija Edgar APRN BRUSH MATERIAL PREPARER Primary Care Provider + Chanelle Mccann APRN CN Unavailab le Lesley Guillermo CHW Unavailable [phone] Kyara De La Fuente RN Unavailable [phone] Marija Edgar APRN [facility] Unavailable Mynor Broussard MD Unavailable [phone] Keisha Dotson MD Unavailable [phone] Mary Mejia Unavailable Unavailable Stacey Briones GROCERY BUYER Unavailable [phone] Lesley Guillermo CHW Unavailable [phone] Mary Mejia Unavailable Unavailable Lita Oseguera Unavailable Unavailable Galo Burrell MD Unavailable Unavailable Cristina Wood Unavailable Lesley Guillermo CHW Unavailable [phone] Meredith Bedoya Unavailable Unavailable Cristina Wood Unavailable Diana Desir [facility] Unavailable [phone] Rain Galaviz PA-C Unavailable Summer Lara MD Unavailable Summer Lara MD Unavailable [phone] Summer Lara MD Unavailable [phone] Tavia Wyatt MD Unavailable [phone] Johnny Murillo MD Unavailable +[phone]- Erica Farrell APRN BRUSH MATERIAL PREPARER Unavailable + Teresita Bean [facility] Unavailable Tavia Wyatt MD Unavailable [phone] Diana Desir [facility] Unavailable [phone] Rich Barrett MD Unavailable [phone] Neil Kent MD Unavailable Roney Story DPM Unavailable Erica Farrell APRN BRUSH MATERIAL PREPARER Unavailable + Diana Desir [facility] Unavailable [phone] FrankieJelena OD Unavailable Galo Burrell MD Unavailable Unavailable Livan Sharif MD Unavailable + Livan Sharif MD Unavailable + Catherine Cm MD Unavailable + Valery Veronica PA-C Unavailable [phone] Catherine Cm MD Unavailable + Johnny Murillo MD Unavailable +[phone]- Brea Quinn APRN BRUSH MATERIAL PREPARER Unavailable +[phone] [place], Brea P PATIENT [facility] BRUSH MATERIAL PREPARER Unavailable Jose Francisco Johnson MD Unavailable Livan Sharif MD Unavailable Catherine Cm MD Unavailable + Sydnie Martinez RN Unavailable Unavailable Alfonso Renteria MD Unavailable [phone] Esha Grimm PA-C Primary Care Provider Cheng Todd PA-C Unavailable Radha oLmeli PATIENT [facility] BRUSH MATERIAL PREPARER Unavailable Jelena David OD Unavailable Pao Joseph RN Unavailable Unavailable Esha Grimm PA-C Unavailable [phone] Valery Veronica PA-C Unavailable Rey Tay MD Unavailable Rocky Zepeda DO Unavailable Philip Dumont MD Unavailable Meredith Carrera PA-C Unavailable Neil Kent MD Unavailable Juan Pablo Emmanuel MD Unavailable Audrey Waite PA-C Unavailable [phone] Valery Veronica PA-C Unavailable Herminia Hatch MD Unavailable Encounter Details Date Type Department Care Team (Late st Contact Info) Description 05/23/2020 [facility] [address] [address] Marija Edgar APRN BRUSH MATERIAL PREPARER [address] [place], [place] [address] Social History [...] CDT Legal Sex Female 4:13 AM ASSISTANT SUPERINTENDENT FOR CURRICULUM Gender Identity Female 03/02/2021 5:45 PM CDT Sexual Orientation Straight 02/28/2020 12 :51 AM CDT COVID-19 Exposure Response Date Recorded In the last month, have you been in contact with someone who was confirmed or suspected to have Coronavirus / COVID-19? No / Unsure 05/12/2020 9:03 AM ASSISTANT SUPERINTENDENT FOR CURRICULUM documented as of this encounter Plan of Treatment Upcoming Encounters Date Type Department Care Team (Late st Contact Info) Description 10/23/2024 9:30 AM CDT Office Visit [facility] Neurology [address], [address] [place] [address] [place] [address] [place] [address] Johnny Penn MD [address] [facility] [place] [id number] documented as of this encounter Visit Diagnoses Not on filedocumented in this encounter Additional Health Concerns Infection Onset Date Last Indicated Resolved Time Rule Out COVID-19 07/30/2020 07/30/2020 07/30/2020 7:11 PM ASSISTANT SUPERINTENDENT FOR CURRICULUM Rule Out COVID-19 08/30/2020 08/30/2020 08/30/2020 5:05 PM ASSISTANT SUPERINTENDENT FOR CURRICULUM Rule Out COVID-19 09/24/2020 09/24/2020 09/24/2020 9:24 AM CDT Rule Out COVID-19 11/05/2020 11/05/2020 11/06/2020 1:09 PM CDT Rule Out COVID-19 05/11/2021 05/11/2021 05/13/2021 10:18 AM CDT Rule Out COVID-19 07/13/2021 07/13/2021 07/14/2021 3:04 PM ASSISTANT SUPERINTENDENT FOR CURRICULUM Rule Out COVID-19 07/18/2021 07/18/2021 07/20/2021 1:56 PM ASSISTANT SUPERINTENDENT FOR CURRICULUM COVID-19 07/18/2021 07/18/2021 08/08/2021 11:3 9 PM ASSISTANT SUPERINTENDENT FOR CURRICULUM Rule Out COVID-19 12/18/2021 12/18/2021 12/19/2021 11:34 AM CDT Rule Out COVID-19 02/24/2022 02/24/2022 02/25/2022 1:08 PM CDT Rule Out COVID-19 04/26/2022 04/26/2022 04/26/2022 6:47 AM CDT Rule Out COVID-19 05/17/2022 05/17/2022 05/17/2022 10:20 PM ASSISTANT SUPERINTENDENT FOR CURRICULUM Rule Out COVID-19 06/09/2022 06/09/2022 06/09/2022 9:35 AM ASSISTANT SUPERINTENDENT FOR CURRICULUM COVID-19 06/09/2022 06/09/2022 06/30/2022 11:4 1 PM ASSISTANT SUPERINTENDENT FOR CURRICULUM Rule Out COVID-19 11/10/2022 11/10/2022 11/11/2022 12:17 PM CDT Rule Out COVID-19 03/07/2023 03/07/2023 03/07/2023 1:20 PM CDT Rule Out COVID-19 12/26/2023 12/26/2023 12/26/2023 9:50 AM CDT Rule Out COVID-19 04/09/2024 04/09/2024 04/10/2024 6:48 PM CDT Assessment Noted Time PHQ-9 Depression Total Score: 6 08/28/19 21 7:05 AM ASSISTANT SUPERINTENDENT FOR CURRICULUM documented as of this encounter Care Teams Nuclear Weapons Mechanical Specialist Relationship Specialty Start Date End Date Marija Edgar APRN BRUSH MATERIAL PREPARER [address] [place] [address] PCP - General Nurse Practitioner 04/30/20 04/14/23 Esha Grimm PA-C [address] [place] [phone] PCP - General Family Medicine 05/04/23 Lita Oseguera Personal Advocate & Liaison (PAL) 02/28/20 03/27/23 Rakesh Cid PA-C [address] [place] [address] Assigned PCP 03/02/20 06/07/20 Chanelle Mccann APRN CNM [address] [address] [address] [place] [address] Assigned OBGYN Provider 05/02/2005/09 Lesley Guillermo, CHW Community Health Worker 05/30/2005/12 Kyara De La Fuente, RN Specialty Hand Sole Sewer Neurology 06/04/20 03/05/21 Marija Edgar APRN BRUSH MATERIAL PREPARER [address] [place] [address] Assigned PCP 06/08/20 04/29/23 Mynor Broussard MD [address] [facility] 500 [place], [place] [address] Assigned Surgical Provider 06/01/20 11/28/21 Keisha Dotson MD [address] [place], [place] [address] Assigned Neuroscience Provider 06/04/20 04/01/23 Mary Mejia Financial Resource Worker 08/07/20 08/21/20 Stacey Briones, [facility] Lead Hand Sole Sewer Primary Care - CC 08/11/2012/30 Lesley Guillermo, [facility] Community Health Worker 08/11/2010/01 NikiatimothyAditiMary Financial Resource Worker 09/02/20 10/06/20 Lita Oseguera Personal Advocate & Liaison (PAL) Family Medicine 09/10/20 09/21/20 Galo Burrell MD Assigned Heart and Vascular Provider 10/05/20 04/02/22 Cristina Wood Financial Resource Worker 10/07/20 10/14/20 Lesley Guillermo, [facility] Community Health Worker 10/23/2012/30 Meredith Bedoya Financial Resource Worker 10/23/20 11/23/20 Cristina Wood Financial Resource Worker 02/09/21 02/09/21 Diana Desir, [facility] [address] [place], [place] [phone] Pharmacist Pharmacist 04/17/21 Rain Galaviz PA-C [address] [place] [address] [address] [facility] [id number] Physician Educational Psychology Teacher Dermatology 04/28/21 Summer Lara MD [address] [place] [address] Assigned OBGYN Provider 05/10/2105/23 Summer Lara MD [address] [place] [address] Assigned OBGYN Provider 05/31/21 Summer Lara MD [address] [place] [address] Assigned OBGYN Provider 05/24/2105/30 Tavia Wyatt MD [address] [place], [place] [address] Dermatology 07/14/21 Johnny Murillo MD [address] [place] [address] Assigned Musculoskeletal Provider 08/30/21 03/17/22 Erica Farrell APRN BRUSH MATERIAL PREPARER [address] [facility] [address] [place] [address] Nurse Practitioner Cardiovascular Disease 09/09/21 Teresita Bean, [facility] [address] [place] [phone] Pharmacist Pharmacist 09/24/21 09/29/21 Tavia Wyatt MD [address] [place], [place] [id number] Assigned Surgical Provider 11/29/21 05/07/22 Diana Desir, [facility] [address] [place] [address] Assigned MTM Pharmacist 01/02/22 Rich Barrett MD [address] [facility] [address] [place] [address] Physician Ophthalmology 01/21/22 Neil Kent MD [address] [place] [address] Dermatology 02/24/22 Roney Story DPM [address] [facility] [address] [place], [place] 19[address] Assigned Musculoskeletal Provider 03/20/22 08/13/22 Erica Farrell APRN BRUSH MATERIAL PREPARER [address] [place] [address] Assigned Heart and Vascular Provider 04/03/22 04/16/22 Diana Desir, [facility] [address] [place] [address] Assigned MTM Pharmacist 04/07/22 Jelena David OD [address] [place] [address] Assigned Surgical Provider 05/08/22 10/08/22 Galo Burrell MD Assigned Heart and Vascular Provider 04/17/22 06/11/22 Livan Sharif MD [address] [place] [id number] Cardiovascular Disease 05/14/22 Livan Sharif MD [address] [place] [address] Assigned Heart and Vascular Provider 06/12/22 07/23/22 Catherine Cm MD [address] [id number] [place] [address] Cardiovascular Disease 07/21/22 Valery Veronica, PA-C [address] [place] [address] Physician Educational Psychology Teacher Dermatology 07/21/22 Catherine Cm MD [address] [address] Assigned Heart and Vascular Provider 07/24/22 11/05/22 Johnny Murillo MD [address] [place] [address] Assigned Musculoskeletal Provider 08/14/22 10/08/22 Brea Quinn APRN BRUSH MATERIAL PREPARER [address] [place] [address] [phone] Nurse Practitioner Dermatology 09/21/22 Brea Quinn APRN BRUSH MATERIAL PREPARER [address] [place] [address] Assigned Surgical Provider 10/09/22 05/01/24 [place] [address] [place] [place] [address] [place] [address] Assigned Musculoskeletal Provider 10/09/22 05/01/24 Livan Sharif MD [address] [facility] [address] [place], [place] [address] Assigned Heart and Vascular Provider 11/06/22 11/12/22 Catherine Cm MD [address] [place] [address] Assigned Heart and Vascular Provider 11/13/22 05/27/23 Sydnie Martinez RN Personal Advocate & Liaison (PAL) Family Medicine 03/28/23 07/31/23 Alfonso Renteria MD [address] [facility] 200 [place] [address] Assigned Neuroscience Provider 04/02/23 Cheng Todd PA-C [address] [place] [address] Assigned PCP 04/30/23 07/15/23 Radha Lomeli APRN BRUSH MATERIAL PREPARER [address] [place] [address] Assigned Heart and Vascular Provider 05/28/23 Jelena David OD [facility] [place] [address] Ophthalmology 06/15/23 Pao Joseph, VJ Personal Advocate & Liaison (PAL) Nurse 08/01/23 11/07/23 Esha Grimm PA-C [address] [place] [phone] Assigned PCP 07/16/23 Valery Veronica PA-C [address] [place] [address] Physician Educational Psychology Teacher Dermatology 09/19/23 Rey Tay MD [address] [place] [address] MD Gastroenterology 09/20/23 Rocky Zepeda DO 500 [place] [address] Physician Gastroenterology 09/20/23 Philip Dumont MD [address] [place] [address] Physician Ophthalmology 09/22/23 Meredith Carrera PA-C [address] [place] [address] Assigned Gastroenterology Provider 11/01/23 Neil Kent MD [address] [address] Dermatology 11/02/23 [place] [address] [place] [address] [address] Neurological Surgery 12/26/23 Audrey Waite PA-C [address] [place] [address] Physician Educational Psychology Teacher Dermatology 02/28/24 Valery Veronica PA-C [address]674 [address] [place] [address] Physician Educational Psychology Teacher Dermatology 04/10/24 Herminia Hatch MD [address] [place] [address] Assigned Rheumatology Provider 07/02/24 documented as of this encounter
--- OUTSIDE RECORDS SUMMARY | 2024-08-28 18:25 | XMS_ITS | Encounter Summary ---
Author Organization [facility] Address [address] [place] [address] Care Team Providers Care Product Planner Name Role Phone Rakesh Cid PA-C Primary Care Provider Lita Oseguera Unavailable Unavailable Rakesh Cid PA-C Unavailable [phone] Lita Oseguera Unavailable Unavailable Marija Edgar APRN CAMP GUARD Primary Care Provider + Chanelle Mccann APRN CNM Unavailab le Lesley Guillermo Unavailable [phone] Kyara De La Fuente RN Unavailable [phone] Marija Edgar APRN CAMP GUARD Unavailable Mynor Broussard MD Unavailable [phone] Keisha Dotson MD Unavailable [phone] Mary Mejia Unavailable Unavailable Stacey Briones REQUIREMENTS MANAGER Unavailable [phone] Lesley Guillermo Unavailable [phone] Mary Mejia Unavailable Unavailable Lita Oseguera Unavailable Unavailable Galo Burrell MD Unavailable Unavailable Cristina Wood Unavailable Lesley Guillermo Unavailable Meredith Bedoya Unavailable Unavailable Cristina Wood Unavailable Diana Desir [facility] Unavailable [phone] Rain Galaviz PA-C Unavailable Summer Lara MD Unavailable [phone] Summer Lara MD Unavailable [phone] Summer Lara MD Unavailable +[phone] Tavia Wyatt MD Unavailable [phone] Johnny Murillo MD Unavailable [phone] Erica Farrell APRN CAMP GUARD Unavailable + Teresita Bean [facility] Unavailable [phone] Tavia Wyatt MD Unavailable [phone] Diana Desir [facility] Unavailable [phone] Rich Barrett MD Unavailable [phone] Neil Kent MD Unavailable Roney Story DPM Unavailable [phone] Erica Farrell APRN CAMP GUARD Unavailable Diana Desir [facility] Unavailable [phone] Jelena David OD Unavailable [phone] Galo Burrell MD Unavailable Unavailable Livan Sharif MD Unavailable + Livan Sharif MD Unavailable + Catherine Cm MD Unavailable + Valery Veronica PA-C Unavailable [phone] Catherine Cm MD Unavailable + Johnny Murillo MD Unavailable [phone] Brea Quinn APRN CAMP GUARD Unavailable [phone] Brea Quinn BURNING MACHINE OPERATOR CAMP GUARD Unavailable Jose Francisco Johnson MD Unavailable Livan Sharif MD Unavailable Catherine Cm MD Unavailable + Sydnie Martinez RN Unavailable Unavailable Alfonso Renteria MD Unavailable [phone] Esha Grimm PA-C Primary Care Provider Cheng Todd PA-C Unavailable [phone] Radha Lomeli BURNING MACHINE OPERATOR CAMP GUARD Unavailable Jelena David Radha OD Unavailable Pao Joseph RN Unavailable Unavailable Esha Grimm PA-C Unavailable [phone] Valery Veronica PA-C Unavailable Rey Tay MD Unavailable Rocky Zepeda DO Unavailable Philip Dumont MD Unavailable [phone] Meredith Carrera PA-C Unavailable [phone] Neil Kent MD Unavailable Juan Pablo Emmanuel MD Unavailable [phone] Audrey Waite PA-C Unavailable [phone] Valery Veronica PA-C Unavailable [phone] Herminia Hatch MD Unavailable Encounter Details Date Type Department Care Team (Late st Contact Info) Description 04/28/2020 [facility] [address] [address] Rakesh Cid PA-C [address] [place] [address] Social History Tobacco Use Types Packs/Day Years [...] PM CDT Legal Sex Female 4:13 AM BEHAVIORAL PSYCHOLOGIST Gender Identity Female 03/02/2021 5:45 PM [...] Description 10/23/2024 9:30 AM CDT Office Visit [facility] Neurology [address], [address] [place] [address] [place] [address] [place] [address] Johnny Penn MD [address] [place] [address] documented as of this encounter Visit Diagnoses Not on filedocumented in this encounter Additional Health Concerns Infection Onset Date Last Indicated Resolved Time Rule Out COVID-19 07/30/2020 07/30/2020 07/30/2020 7:11 PM BEHAVIORAL PSYCHOLOGIST Rule Out COVID-19 08/30/2020 08/30/2020 08/30/2020 5:05 PM BEHAVIORAL PSYCHOLOGIST Rule Out COVID-19 09/24/2020 09/24/2020 09/24/2020 9:24 AM CDT Rule Out COVID-19 11/05/2020 11/05/2020 11/06/2020 1:09 PM CDT Rule Out COVID-19 05/11/2021 05/11/2021 05/13/2021 10:18 AM CDT Rule Out COVID-19 07/13/2021 07/13/2021 07/14/2021 3:04 PM BEHAVIORAL PSYCHOLOGIST Rule Out COVID-19 07/18/2021 07/18/2021 07/20/2021 1:56 PM BEHAVIORAL PSYCHOLOGIST COVID-19 07/18/2021 07/18/2021 08/08/2021 11:3 9 PM BEHAVIORAL PSYCHOLOGIST Rule Out COVID-19 12/18/2021 12/18/2021 12/19/2021 11:34 AM CDT Rule Out COVID-19 02/24/2022 02/24/2022 02/25/2022 1:08 PM CDT Rule Out COVID-19 04/26/2022 04/26/2022 04/26/2022 6:47 AM CDT Rule Out COVID-19 05/17/2022 05/17/2022 05/17/2022 10:20 PM BEHAVIORAL PSYCHOLOGIST Rule Out COVID-19 06/09/2022 06/09/2022 06/09/2022 9:35 AM BEHAVIORAL PSYCHOLOGIST COVID-19 06/09/2022 06/09/2022 06/30/2022 11:4 1 PM BEHAVIORAL PSYCHOLOGIST Rule Out COVID-19 11/10/2022 11/10/2022 11/11/2022 12:17 PM CDT Rule Out COVID-19 03/07/2023 03/07/2023 03/07/2023 1:20 PM CDT Rule Out COVID-19 12/26/2023 12/26/2023 12/26/2023 9:50 AM CDT Rule Out COVID-19 04/09/2024 04/09/2024 04/10/2024 6:48 PM CDT Assessment Noted Time PHQ-9 Depression Total Score: 12 020 2:40 PM CDT documented as of this encounter Care Teams Product Planner Relationship Specialty Start Date End Date Rakesh Cid PA-C PCP - General Physician Assembly Department Supervisor - Medical 05/14/19 04/29/20 Marija Edgar APRN CAMP GUARD [address] [place] [address] PCP - General Nurse Practitioner 04/30/20 04/14/23 Esha Grimm PA-C [address] [place] [phone] PCP - General Family Medicine 05/04/23 Lita Oseguera Personal Advocate & Liaison (PAL) 02/28/20 03/27/23 Rakesh Cid PA-C [address] [place] [address] Assigned PCP 03/02/20 06/07/20 Lita Oseguera Personal Advocate & Liaison (PAL) 04/07/20 04/29/20 Chanelle Mccann APRN CNM [address] [facility] [address] [place] [address] Assigned OBGYN Provider 05/02/2005/09 Lesley Guillermo CHW Community Health Worker 05/30/2005/12 Kyara De La Fuente, RN Specialty Employment Service Specialist Neurology 06/04/20 03/05/21 Marija Edgar APRN CAMP GUARD [address] [place] [address] Assigned PCP 06/08/20 04/29/23 Mynor Broussard MD [address] [place], [place] 4632[address] Assigned Surgical Provider 06/01/20 11/28/21 Keisha Dotson MD [address] [place], [place] [address] Assigned Neuroscience Provider 06/04/20 04/01/23 Mary Mejia Financial Resource Worker 08/07/20 08/21/20 Stacey Briones, [facility] Lead Employment Service Specialist Primary Care - CC 08/11/2012/30 Lesley Guillermo, [facility] Community Health Worker 08/11/2010/01 Mary Mejia Financial Resource Worker 09/02/20 10/06/20 Lita Oseguera Personal Advocate & Liaison (PAL) Family Medicine 09/10/20 09/21/20 Galo Burrell MD Assigned Heart and Vascular Provider 10/05/20 04/02/22 Cristina Wood Financial Resource Worker 10/07/20 10/14/20 Lesley Guillermo, [facility] Community Health Worker 10/23/2012/30 Meredith Bedoya Financial Resource Worker 10/23/20 11/23/20 Cristina Wood Financial Resource Worker 02/09/21 02/09/21 Dinaa Desir, [facility] [address] [place] [address] Pharmacist Pharmacist 04/17/21 Rain Galaviz PA-C [address] [place] [address] [address] [facility] [facility] [address] Physician Assembly Department Supervisor Dermatology 04/28/21 Summer Lara MD [address] [place] [address] Assigned OBGYN Provider 05/10/2105/23 Summer Lara MD [address] [place] [address] Assigned OBGYN Provider 05/31/21 Summer Lara MD [address] [place] [address] Assigned OBGYN Provider 05/24/2105/30 Tavia Wyatt MD [address] [place] [address] Dermatology 07/14/21 Johnny Murillo MD [address] [place] [address] Assigned Musculoskeletal Provider 08/30/21 03/17/22 Erica Farrell APRN CAMP GUARD [address] [facility] [address] [place] [address] Nurse Practitioner Cardiovascular Disease 09/09/21 Teresita Bean, [facility] [address] [place] [address] Pharmacist Pharmacist 09/24/21 09/29/21 Tavia Wyatt MD [address] [place] [address] Assigned Surgical Provider 11/29/21 05/07/22 Diana Desir, [facility] [address] [place] [address] Assigned MTM Pharmacist 01/02/22 Rich Barrett MD [address] [phone] Physician Ophthalmology 01/21/22 Neil Kent MD [address] [place] [address] Dermatology 02/24/22 Roney Story DPM [address] [facility] [address] [place] [address] Assigned Musculoskeletal Provider 03/20/22 08/13/22 Erica Farrell APRN CAMP GUARD [address] [place] [address] Assigned Heart and Vascular Provider 04/03/22 04/16/22 Diana Desir, [facility] [address] [place] [address] Assigned MTM Pharmacist 04/07/22 Jelena David OD [address] [place] [address] Assigned Surgical Provider 05/08/22 10/08/22 Galo Burrell MD Assigned Heart and Vascular Provider 04/17/22 06/11/22 Livan Sharif MD [address]via, [facility] [address] [place] [phone] Cardiovascular Disease 05/14/22 Livan Sharif MD [address]via, [facility]00 [place] [address]24765 Assigned Heart and Vascular Provider 06/12/22 07/23/22 Catherine Cm MD [address] [facility]00 [place] 988[address] Cardiovascular Disease 07/21/22 Valery Veronica, PA-C [address] [place] [address] [phone] Physician Assembly Department Supervisor Dermatology 07/21/22 Catherine Cm MD [address] [facility] [place] [address]38[address] Assigned Heart and Vascular Provider 07/24/22 11/05/22 Johnny Murillo MD [facility] [address] Assigned Musculoskeletal Provider 08/14/22 10/08/22 Brea Quinn APRN CAMP GUARD [address] [place] [address] 360555 Nurse Practitioner Dermatology 09/21/22 Brea Quinn APRN CAMP GUARD [address] [place] [address] [place] [address] Assigned Surgical Provider 10/09/22 05/01/24 [place] [address] RAZO [address] [place] [address], [place] [address] Assigned Musculoskeletal Provider 10/09/22 05/01/24 Livan Sharif MD [address], [facility] [address] [place] [address] Assigned Heart and Vascular Provider 11/06/22 11/12/22 Catherine Cm MD [address] [facility] [address] [place] [address] Assigned Heart and Vascular Provider 11/13/22 05/27/23 Sydnie Martinez RN Personal Advocate & Liaison (PAL) Family Medicine 03/28/23 07/31/23 Alfonso Renteria MD [address] [facility] [address] [place] [address] Assigned Neuroscience Provider 04/02/23 Cheng Todd PA-C [address] [place] [address] [phone] Assigned PCP 04/30/23 07/15/23 Radha Lomeli APRN CAMP GUARD [address] [place] [address] Assigned Heart and Vascular Provider 05/28/23 Jelena David OD [address] [place] [address] MD Ophthalmology 06/15/23 Pao Joseph, RN Personal Advocate & Liaison (PAL) Nurse 08/01/23 11/07/23 Esha Grimm PA-C [address] [place] [address] Assigned PCP 07/16/23 Valery Veronica PA-C [address] [place] [address] Physician Assembly Department Supervisor Dermatology 09/19/23 Rey Tay MD [address] [place] [address] Gastroenterology 09/20/23 Rocky Zepeda DO [address] [place] [address] 276195 Physician Gastroenterology 09/20/23 Philip Dumont MD [address] [place] [address] [phone] Physician Ophthalmology 09/22/23 Meredith Carrera PA-C [address] [place] [address] [phone] Assigned Gastroenterology Provider 11/01/23 Neil Kent MD [address] 369[address] Dermatology 11/02/23 [place] [address] [place] [address] Neurological Surgery 12/26/23 Audrey Waite PA-C [address] [place] [address] Physician Assembly Department Supervisor Dermatology 02/28/24 Valery Veronica PA-C [address] [place] [address] Physician Assembly Department Supervisor Dermatology 04/10/24 Herminia Hatch MD [address] [place] [address] [id number] Assigned Rheumatology Provider 07/02/24 documented as of this encounter
--- OUTSIDE RECORDS SUMMARY | 2024-08-28 18:25 | XMS_ITS | Encounter Summary ---
Author Organization [facility] Address [address] [place] [address] Care Team Providers Care [employer] Senior Sergeant Name Role Phone Rakesh Cid PA-C Primary Care Provider Lita Oseguera Unavailable Unavailable Rakesh Cid PA-C Unavailable [phone] Lita Oseguera Unavailable Unavailable Marija Edgar APRN TRANSMISSION AND PROTECTION ENGINEER Primary Care Provider + Chanelle Mccann APRN CNM Unavailab le Lesley Guillermo Unavailable [phone] Kyara De La Fuente RN Unavailable [phone] Marija Edgar APRN TRANSMISSION AND PROTECTION ENGINEER Unavailable Mynor Broussard MD Unavailable [phone] Keisha Dotson MD Unavailable [phone] Mary Mejia Unavailable Unavailable Stacey Briones PSYCHIATRIC SPECIALIST Unavailable Lesley Guillermo Unavailable [phone] Mary Mejia Unavailable Unavailable Lita Oseguera Unavailable Unavailable Galo Burrell MD Unavailable Unavailable Cristina Wood Unavailable Lesley Guillermo Unavailable Meredith Bedoya Unavailable Unavailable Cristina Wood Unavailable Diana Desir [facility] Unavailable [phone] Rain Galaviz PA-C Unavailable Summer Lara MD Unavailable [phone] Summer Lara MD Unavailable +[phone] Summer Lara MD Unavailable +[phone] Tavia Wyatt MD Unavailable [phone] Johnny Murillo MD Unavailable +[phone] Erica Farrell APRN TRANSMISSION AND PROTECTION ENGINEER Unavailable + Teresita Bean [facility] Unavailable [phone] Tavia Wyatt MD Unavailable [phone] Diana Desir [facility] Unavailable [phone] Rich Barrett MD Unavailable [phone] Neil Kent MD Unavailable Roney Story DPM Unavailable [phone] Erica Farrell APRN TRANSMISSION AND PROTECTION ENGINEER Unavailable Diana Desir [facility] Unavailable [phone] Jelena David OD Unavailable Galo Burrell MD Unavailable Unavailable Livan Sharif MD Unavailable + Livan Sharif MD Unavailable + Catherine Cm MD Unavailable + Valery Veronica PA-C Unavailable [phone] Catherine Cm MD Unavailable + Johnny Murillo MD Unavailable [phone] Brea Quinn APRN TRANSMISSION AND PROTECTION ENGINEER Unavailable [phone] Brea Quinn POST DOCTORAL FELLOW TRANSMISSION AND PROTECTION ENGINEER Unavailable Jose Francisco Johnson MD Unavailable Livan Sharif MD Unavailable Catherine Cm MD Unavailable + Sydnie Martinez RN Unavailable Unavailable Alfonso Renteria MD Unavailable [phone] Esha Grimm PA-C Primary Care Provider Cheng Todd PA-C Unavailable [phone] Radha Lomeli POST DOCTORAL FELLOW TRANSMISSION AND PROTECTION ENGINEER Unavailable Jelena David Radha OD Unavailable Pao Joseph RN Unavailable Unavailable Esha Grimm PA-C Unavailable [phone] Valery Veronica PA-C Unavailable Rey Tay MD Unavailable Rocky Zepeda DO Unavailable Philip Dumont MD Unavailable Meredith Carrera PA-C Unavailable [phone] Neil Kent MD Unavailable Juan Pablo Emmanuel MD Unavailable [phone] Audrey Waite PA-C Unavailable Valery Veronica PA-C Unavailable Herminia Hatch MD Unavailable Encounter Details Date Type Department Care Team (Late st Contact Info) Description 04/25/2020 [facility] [address] [address] Rakesh Cid PA-C [address] [place] [address] Social History Tobacco Use Types Packs/Day Years [...] PM CDT Legal Sex Female 4:13 AM [employer]P PLANT SUPER[employer]OR Gender Identity Female 03/02/2021 5:45 PM [...] CDT Office Visit [facility] Neurology [address], [address] [place] [address] [place] [address] [place] [address] Johnny Penn MD [address] [place] [address] documented as of this encounter Visit Diagnoses Not on filedocumented in this encounter Additional Health Concerns Infection Onset Date Last Indicated Resolved Time Rule Out COVID-19 07/30/2020 07/30/2020 07/30/2020 7:11 PM PULP PLANT SUPERVISOR Rule Out COVID-19 08/30/2020 08/30/2020 08/30/2020 5:05 PM PULP PLANT SUPERVISOR Rule Out COVID-19 09/24/2020 09/24/2020 09/24/2020 9:24 AM CDT Rule Out COVID-19 11/05/2020 11/05/2020 11/06/2020 1:09 PM CDT Rule Out COVID-19 05/11/2021 05/11/2021 05/13/2021 10:18 AM CDT Rule Out COVID-19 07/13/2021 07/13/2021 07/14/2021 3:04 PM PULP PLANT SUPERVISOR Rule Out COVID-19 07/18/2021 07/18/2021 07/20/2021 1:56 PM PULP PLANT SUPERVISOR COVID-19 07/18/2021 07/18/2021 08/08/2021 11:3 9 PM PULP PLANT SUPERVISOR Rule Out COVID-19 12/18/2021 12/18/2021 12/19/2021 11:34 AM CDT Rule Out COVID-19 02/24/2022 02/24/2022 02/25/2022 1:08 PM CDT Rule Out COVID-19 04/26/2022 04/26/2022 04/26/2022 6:47 AM CDT Rule Out COVID-19 05/17/2022 05/17/2022 05/17/2022 10:20 PM PULP PLANT SUPERVISOR Rule Out COVID-19 06/09/2022 06/09/2022 06/09/2022 9:35 AM PULP PLANT SUPERVISOR COVID-19 06/09/2022 06/09/2022 06/30/2022 11:4 1 PM PULP PLANT SUPERVISOR Rule Out COVID-19 11/10/2022 11/10/2022 11/11/2022 12:17 PM CDT Rule Out COVID-19 03/07/2023 03/07/2023 03/07/2023 1:20 PM CDT Rule Out COVID-19 12/26/2023 12/26/2023 12/26/2023 9:50 AM CDT Rule Out COVID-19 04/09/2024 04/09/2024 04/10/2024 6:48 PM CDT Assessment Noted Time PHQ-9 Depression Total Score: 12 020 2:40 PM CDT documented as of this encounter Care Teams [employer] Senior Sergeant Relationship Specialty Start Date End Date Rakesh Cid PA-C PCP - General Physician Open Hearth Furnace Operator - Medical 05/14/19 04/29/20 Marija Edgar APRN TRANSMISSION AND PROTECTION ENGINEER [address] [place] [address] PCP - General Nurse Practitioner 04/30/20 04/14/23 Esha Grimm PA-C [address] [place] [phone] PCP - General Family Medicine 05/04/23 Lita Oseguera Personal Advocate & Liaison (PAL) 02/28/20 03/27/23 Rakesh Cid PA-C [address] [place] [address] Assigned PCP 03/02/20 06/07/20 Lita Oseguera Personal Advocate & Liaison (PAL) 04/07/20 04/29/20 Chanelle Mccann APRN CNM [address] [address] [facility] [address] [place] [address] Assigned OBGYN Provider 05/02/2005/09 Lesley Guillermo CHW Community Health Worker 05/30/2005/12 Kyara De La Fuente, RN Specialty Eligibility Specialist Neurology 06/04/20 03/05/21 Marija Edgar APRN TRANSMISSION AND PROTECTION ENGINEER [address] [place] [address] Assigned PCP 06/08/20 04/29/23 Mynor Broussard MD [address] [place], [place] [address] Assigned Surgical Provider 06/01/20 11/28/21 Keisha Dotson MD [address] [place], [place] 8[address] Assigned Neuroscience Provider 06/04/20 04/01/23 Mary Mejia Financial Resource Worker 08/07/20 08/21/20 Stacey Briones, [facility] Lead Eligibility Specialist Primary Care - CC 08/11/2012/30 Lesley Guillermo, [facility] Community Health Worker 08/11/2010/01 Mary Mejia Financial Resource Worker 09/02/20 10/06/20 Lita Oseguera Personal Advocate & Liaison (PAL) Family Medicine 09/10/20 09/21/20 Galo Burrell MD Assigned Heart and Vascular Provider 10/05/20 04/02/22 Cristina Wood Financial Resource Worker 10/07/20 10/14/20 Lesley Guillermo, [facility] Community Health Worker 10/23/2012/30 Meredith Bedoya Financial Resource Worker 10/23/20 11/23/20 Cristina Wood Financial Resource Worker 02/09/21 02/09/21 Diana Desir, [facility] [address] [place] [address] Pharmacist Pharmacist 04/17/21 Rain Galaviz PA-C [address] [place] [address] [facility] [address] Physician Open Hearth Furnace Operator Dermatology 04/28/21 Summer Lara MD [address] [place] [address] Assigned OBGYN Provider 05/10/2105/23 Summer Lara MD [address] [place] [address] Assigned OBGYN Provider 05/31/21 Summer Lara MD [address] [place] [address] Assigned OBGYN Provider 05/24/2105/30 Tavia Wyatt MD [address] [place] [address] Dermatology 07/14/21 Johnny Murillo MD [address] [place] [address] Assigned Musculoskeletal Provider 08/30/21 03/17/22 Erica Farrell APRN TRANSMISSION AND PROTECTION ENGINEER [address] [facility] [address] [place] [address] Nurse Practitioner Cardiovascular Disease 09/09/21 Teresita Bean, [facility] [address] [place] [address] Pharmacist Pharmacist 09/24/21 09/29/21 Tavia Wyatt MD [address] [place] [address] Assigned Surgical Provider 11/29/21 05/07/22 Diana Desir, [facility] [address] [place] [address] Assigned MTM Pharmacist 01/02/22 Rich Barrett MD [address] [phone] Physician Ophthalmology 01/21/22 Neil Kent MD [address] [place] [address] Dermatology 02/24/22 [place] [address] [facility] [address] [place] [address] Assigned Musculoskeletal Provider 03/20/22 08/13/22 Erica Farrell APRN TRANSMISSION AND PROTECTION ENGINEER [address] [place] [address] Assigned Heart and Vascular Provider 04/03/22 04/16/22 Diana Desir, [facility] [address] [place] [address] Assigned MTM Pharmacist 04/07/22 Jelena David OD [address] [facility] [place] [address] Assigned Surgical Provider 05/08/22 10/08/22 Galo Burrell MD Assigned Heart and Vascular Provider 04/17/22 06/11/22 Livan Sharif MD [address], [facility] [address] [place] [phone] Cardiovascular Disease 05/14/22 Livan Sharif MD [address] [place], [facility] [place] [address]80035 Assigned Heart and Vascular Provider 06/12/22 07/23/22 Catherine Cm MD [address] [facility] [place] 735195 Cardiovascular Disease 07/21/22 Valery Veronica, PA-C [address] [place] [address] 744975 Physician Open Hearth Furnace Operator Dermatology 07/21/22 Catherine Cm MD [address] [facility] [place] [address] Assigned Heart and Vascular Provider 07/24/22 11/05/22 Johnny Murillo MD [facility] [address] [address] Assigned Musculoskeletal Provider 08/14/22 10/08/22 Brea Quinn APRN TRANSMISSION AND PROTECTION ENGINEER [address] [place] [address] 267295 Nurse Practitioner Dermatology 09/21/22 Brea Quinn APRN TRANSMISSION AND PROTECTION ENGINEER [address] [place] [address] [place] [address] Assigned Surgical Provider 10/09/22 05/01/24 [place] [address] [place] [address], [place] [address] Assigned Musculoskeletal Provider 10/09/22 05/01/24 Livan Sharif MD [address], [facility] [address] [place] [address] Assigned Heart and Vascular Provider 11/06/22 11/12/22 Catherine Cm MD [address] [facility] [address] [place] [address] Assigned Heart and Vascular Provider 11/13/22 05/27/23 Sydnie Martinez RN Personal Advocate & Liaison (PAL) Family Medicine 03/28/23 07/31/23 Alfonso Renteria MD [address] [facility] [address] [place] [address] Assigned Neuroscience Provider 04/02/23 Cheng Todd PA-C [address] [place] [address] [id number] Assigned PCP 04/30/23 07/15/23 Radha Lomeli APRN TRANSMISSION AND PROTECTION ENGINEER [address] [place] [address] Assigned Heart and Vascular Provider 05/28/23 Jelena David OD [address] [facility] [address] MD Ophthalmology 06/15/23 Pao Joseph, RN Personal Advocate & Liaison (PAL) Nurse 08/01/23 11/07/23 Esha Grimm PA-C [address] [place] [address] Assigned PCP 07/16/23 Valery Veronica PA-C [address] [place] [address] Physician Open Hearth Furnace Operator Dermatology 09/19/23 Rey Tay MD [address] [place] [address] Gastroenterology 09/20/23 Rocky Zepeda DO [address] [place] [address] 683685 Physician Gastroenterology 09/20/23 Philip Dumont MD [address] [place] [address] 148315 Physician Ophthalmology 09/22/23 Meredith Carrera PA-C [address] [place] [address] [phone] Assigned Gastroenterology Provider 11/01/23 Neil Kent MD [address] 806120 Dermatology 11/02/23 [place] [address] [place] [address] Neurological Surgery 12/26/23 Audrey Waite PA-C [address] [place] [address] Physician Open Hearth Furnace Operator Dermatology 02/28/24 Valery Veronica PA-C [address] [place] [address] Physician Open Hearth Furnace Operator Dermatology 04/10/24 Herminia Hatch MD [address] [place] [address] [id number] Assigned Rheumatology Provider 07/02/24 documented as of this encounter
--- OUTSIDE RECORDS SUMMARY | 2024-08-28 18:25 | XMS_ITS | Encounter Summary ---
Author Organization [place] Address [address] [place] [address] Care Team Providers Care Employee Training Specialist Name Role Phone Rakesh Cid PA-C Unavailable [phone] Rakesh Cid PA-C Primary Care Provider [phone] Lita Oseguera Unavailable Unavailable Rakesh Cid PA-C Unavailable [phone] Isaura Lamar RN Unavailable Unavailable Lita Oseguera Unavailable Unavailable Marija Edgar APRN PREPARATION PLANT REPAIRER Primary Care Provider + Chanelle Mccann APRN CN Unavailab le Lesley Guillermo CHKamryn Unavailable [phone] Kyara De La Fuente RN Unavailable [phone] Marija Edgar APRN PREPARATION PLANT REPAIRER Unavailable [phone] Mynor Broussard MD Unavailable [phone] Keisha Dotson MD Unavailable [phone] Mary Mejia Unavailable Unavailable Stacey Brionse PROPERTY INSURANCE CLAIMS EXAMINER Unavailable [phone] Lesley Guillermo CHW Unavailable [phone] Mary Mejia Unavailable Unavailable Lita Oseguera Unavailable Unavailable Galo Burrell MD Unavailable Unavailable Cristina Wood Unavailable Lesley Guillermo [facility] Unavailable Meredith Bedoya Unavailable Unavailable Cristina Wood Unavailable ThangKendrickDiana Stanislav [facility] Unavailable [phone] Rain GalavizC Unavailable Summer Lara MD Unavailable [phone] Summer Lara MD Unavailable [phone] Summer Lara MD Unavailable [phone] Tavia Wyatt MD Unavailable [phone] Johnny Murillo MD Unavailable Erica Farrell APRN PREPARATION PLANT REPAIRER Unavailable Teresita Bean [facility] Unavailable Tavia Wyatt MD Unavailable [phone] [phone] Diana [place] [facility] Unavailable [phone] Rich Barrett MD Unavailable [phone] Neil Kent MD Unavailable Roney Story DPM Unavailable Erica Farrell ACCOUNTING POLICY CONSULTANT PREPARATION PLANT REPAIRER Unavailable + Diana Desir [facility] Unavailable [phone] Jelena David OD Unavailable [phone] Galo Burrell MD Unavailable Unavailable Livan Sharif MD Unavailable + Livan Sharif MD Unavailable + Catherine Cm MD Unavailable + Valery VeronicaC Unavailable [phone] Catherine Cm MD Unavailable + Johnny Murillo MD Unavailable [phone] Brea Quinn ACCOUNTING POLICY CONSULTANT PREPARATION PLANT REPAIRER Unavailable [phone] Brea Quinn ACCOUNTING POLICY CONSULTANT PREPARATION PLANT REPAIRER Unavailable [phone] Jose Francisco Johnson MD Unavailable Livan Sharif MD Unavailable Catherine Cm MD Unavailable + Sydnie Martinez RN Unavailable Unavailable Alfonso Renteria MD Unavailable Esha Grimm PA-C Primary Care Provider Cheng Todd PA-C Unavailable Radha Lomeli ACCOUNTING POLICY CONSULTANT PREPARATION PLANT REPAIRER Unavailable [phone] Jelena David OD Unavailable [phone] Pao Joseph RN Unavailable Unavailable Esha Grimm PA-C Unavailable Valery Veronica PA-C Unavailable Rey Tay MD Unavailable Rocky Zepeda DO Unavailable Philip Dumont MD Unavailable Meredith Carrera PA-C Unavailable Neil Kent MD Unavailable Juan Pablo Emmanuel MD Unavailable Audrey Waite PA-C Unavailable [phone] Valery Veronica PA-C Unavailable [phone] Herminia Hatch MD Unavailable Reason for Visit * Reason Onset Date Comments Appointment 02/13/2020 Anxiety Encounter Details Date Type Department Care Team (Late st Contact Info) Description 02/13/2020 MyC Medical Advice [address] [address] Rakesh Cid PA-C [address] [place] [address] Appointment (Anxiety) Social History Tobacco Use Types [...] PM CDT Legal Sex Female 4:13 AM SPECIALIZED LANGUAGE INSTRUCTOR Gender Identity Female 03/02/2021 5:45 PM CDT Sexual Orientation Straight 02/28/2020 12 :51 AM CDT documented as of this encounter Miscellaneous Notes * Telephone Encounter - Agatha Forrester RN - 02/15/2020 2:28 PM CDT [employer] message sent to patient to schedule a [...] wants a virtual appointment with me sooner? Raeksh documented in this encounter Plan of Treatment Upcoming Encounters Date Type Department Care Team (Late st Contact Info) Description 10/23/2024 9:30 AM CDT Office Visit [facility] Neurology [facility] [address], [address] [place] [address] [place] [address] [place], [place] [address] Johnny Penn MD [address] [place] [id number] documented as of this encounter Visit Diagnoses Not on filedocumented in this encounter Additional Health Concerns Infection Onset Date Last Indicated Resolved Time Rule Out COVID-19 07/30/2020 07/30/2020 07/30/2020 7:11 PM SPECIALIZED LANGUAGE INSTRUCTOR Rule Out COVID-19 08/30/2020 08/30/2020 08/30/2020 5:05 PM SPECIALIZED LANGUAGE INSTRUCTOR Rule Out COVID-19 09/24/2020 09/24/2020 09/24/2020 9:24 AM CDT Rule Out COVID-19 11/05/2020 11/05/2020 11/06/2020 1:09 PM CDT Rule Out COVID-19 05/11/2021 05/11/2021 05/13/2021 10:18 AM CDT Rule Out COVID-19 07/13/2021 07/13/2021 07/14/2021 3:04 PM SPECIALIZED LANGUAGE INSTRUCTOR Rule Out COVID-19 07/18/2021 07/18/2021 07/20/2021 1:56 PM SPECIALIZED LANGUAGE INSTRUCTOR COVID-19 07/18/2021 07/18/2021 08/08/2021 11:3 9 PM SPECIALIZED LANGUAGE INSTRUCTOR Rule Out COVID-19 12/18/2021 12/18/2021 12/19/2021 11:34 AM CDT Rule Out COVID-19 02/24/2022 02/24/2022 02/25/2022 1:08 PM CDT Rule Out COVID-19 04/26/2022 04/26/2022 04/26/2022 6:47 AM CDT Rule Out COVID-19 05/17/2022 05/17/2022 05/17/2022 10:20 PM SPECIALIZED LANGUAGE INSTRUCTOR Rule Out COVID-19 06/09/2022 06/09/2022 06/09/2022 9:35 AM SPECIALIZED LANGUAGE INSTRUCTOR COVID-19 06/09/2022 06/09/2022 06/30/2022 11:4 1 PM SPECIALIZED LANGUAGE INSTRUCTOR Rule Out COVID-19 11/10/2022 11/10/2022 11/11/2022 12:17 PM CDT Rule Out COVID-19 03/07/2023 03/07/2023 03/07/2023 1:20 PM CDT Rule Out COVID-19 12/26/2023 12/26/2023 12/26/2023 9:50 AM CDT Rule Out COVID-19 04/09/2024 04/09/2024 04/10/2024 6:48 PM CDT Assessment Noted Time PHQ-9 Depression Total Score: 1 09/11/19 1:42 PM SPECIALIZED LANGUAGE INSTRUCTOR documented as of this encounter Care Teams Employee Training Specialist Relationship Specialty Start Date End Date Rakesh Cid PA-C [address] [place] [address] PCP - General Physician Cutter Grinder Operator - Medical 05/14/19 04/29/20 Marija Edgar APRN CNP PCP - General Nurse Practitioner 04/30/20 04/14/23 Esha Grimm PA-C [address] [place] [phone] PCP - General Family Medicine 05/04/23 Rakesh Cid PA-C [address] [place] [address] Assigned PCP 05/06/19 03/01/20 Lita Oseguera Personal Advocate & Liaison (PAL) 02/28/20 03/27/23 Rakesh Cid PA-C [address] [facility] [place] [address] Assigned PCP 03/02/20 06/07/20 Isaura Lamar RN Personal Advocate & Liaison (PAL) Family Practice 04/03/20 04/06/20 Lita Oseguera Personal Advocate & Liaison (PAL) 04/07/20 04/29/20 Chanelle Mccann APRN CNM [address] [id number] Assigned OBGYN Provider 05/02/2005/09 Lesley Guillermo, [facility] Community Health Worker 05/30/2005/12 Kyara De La Fuente, VJ Specialty Gas Examiner Neurology 06/04/20 03/05/21 Marija Edgar APRN PREPARATION PLANT REPAIRER Assigned PCP 06/08/20 04/29/23 Mynor Broussard MD [address] [facility] 500 [place], [place] 5[address] Assigned Surgical Provider 06/01/20 11/28/21 Keisha Dotson MD 9 [place], [place] 689335 Assigned Neuroscience Provider 06/04/20 04/01/23 Mary Mejia Financial Resource Worker 08/07/20 08/21/20 Stacey Briones, PROPERTY INSURANCE CLAIMS EXAMINER Lead Gas Examiner Primary Care - CC 08/11/2012/30 Lesley Guillermo, [facility] Community Health Worker 08/11/2010/01 Mary Mejia Financial Resource Worker 09/02/20 10/06/20 Lita Oseguera Personal Advocate & Liaison (PAL) Family Medicine 09/10/20 09/21/20 Galo Burrell MD Assigned Heart and Vascular Provider 10/05/20 04/02/22 Cristina Wood Financial Resource Worker 10/07/20 10/14/20 Lesley Guillermo, [facility] Community Health Worker 10/23/2012/30 Meredith Bedoya Financial Resource Worker 10/23/20 11/23/20 Cristina Wood Financial Resource Worker 02/09/21 02/09/21 Diana Desir, [facility] [address] [place], [place] [address] Pharmacist Pharmacist 04/17/21 Rain Galaviz PA-C [address] [place] [address] [address] [facility] [place] [phone] Physician Cutter Grinder Operator Dermatology 04/28/21 Summer Lara MD [address] [place] [id number] Assigned OBGYN Provider 05/10/2105/23 Summer Lara MD [address], [place] [address] Assigned OBGYN Provider 05/31/21 2 Summer Lara MD [address] [place] [address] Assigned OBGYN Provider 05/24/2105/30 Tavia Wyatt MD [address] [place], [place] 2909[address] Dermatology 07/14/21 Johnny Murillo MD [address] [place], [place] 9[address] Assigned Musculoskeletal Provider 08/30/21 03/17/22 Erica Farrell APRN PREPARATION PLANT REPAIRER [address] [facility] [address] [place], [place] [address] Nurse Practitioner Cardiovascular Disease 09/09/21 Teresita Bean [facility] [address] [place], [place] [phone] Pharmacist Pharmacist 09/24/21 09/29/21 Tavia Wyatt MD [address] [place], [place] 935200 Assigned Surgical Provider 11/29/21 05/07/22 Diana Desir, [facility] [address] [place], [place] 67[address] Assigned MTM Pharmacist 01/02/22 Rich Barrett MD [address] [facility] [address] [place], [place] [address] Physician Ophthalmology 01/21/22 Neil Kent MD 500 [place] [address] Dermatology 02/24/22 Roney Story DPM [address] [facility] [address] [place] [address] Assigned Musculoskeletal Provider 03/20/22 08/13/22 Erica Farrell APRN PREPARATION PLANT REPAIRER [address] [place] [address] Assigned Heart and Vascular Provider 04/03/22 04/16/22 Diana Desir, [facility] [address] [place] [address] Assigned MTM Pharmacist 04/07/22 Jelena David OD [address] [facility] [place] [address] Assigned Surgical Provider 05/08/22 10/08/22 Galo Burrell MD Assigned Heart and Vascular Provider 04/17/22 06/11/22 Livan Sharif MD [address] [place] [address] Cardiovascular Disease 05/14/22 Livan Sharif MD [address] [place] 788835 Assigned Heart and Vascular Provider 06/12/22 07/23/22 Catherine Cm MD [address] [place] [address] Cardiovascular Disease 07/21/22 Valery Veronica PA-C [address] [place] [address] Physician Cutter Grinder Operator Dermatology 07/21/22 Catherine Cm MD [address] [facility] [address] [facility] [address] [place] [address] Assigned Heart and Vascular Provider 07/24/22 11/05/22 Johnny Murillo MD [address] [place] [address] Assigned Musculoskeletal Provider 08/14/22 10/08/22 Brea Quinn APRN PREPARATION PLANT REPAIRER [address] [place] [address] [phone] Nurse Practitioner Dermatology 09/21/22 Brea Quinn APRN PREPARATION PLANT REPAIRER [address] [place] [address] Assigned Surgical Provider 10/09/22 05/01/24 [place] [address] [address] Assigned Musculoskeletal Provider 10/09/22 05/01/24 Livan Sharif MD [address], [facility] [address] [place] [address] Assigned Heart and Vascular Provider 11/06/22 11/12/22 Catherine Cm MD [address] [place] [address] Assigned Heart and Vascular Provider 11/13/22 05/27/23 Sydnie Martinez RN Personal Advocate & Liaison (PAL) Family Medicine 03/28/23 07/31/23 Alfonso Renteria MD [address] [facility] [address] [place] [address] Assigned Neuroscience Provider 04/02/23 Cheng Todd PA-C [address] [place] [address] [id number] Assigned PCP 04/30/23 07/15/23 Radha Lomeli APRN PREPARATION PLANT REPAIRER [address] [place] [address] Assigned Heart and Vascular Provider 05/28/23 Jelena David OD [address] [facility] [place] [address] Ophthalmology 06/15/23 Pao Joseph RN Personal Advocate & Liaison (PAL) Nurse 08/01/23 11/07/23 Esha Grimm PA-C [address] [place] [phone] Assigned PCP 07/16/23 Valery Veronica PA-C [address]09 [place] [address] Physician Cutter Grinder Operator Dermatology 09/19/23 Rey Tay MD 909 [place] [address] Gastroenterology 09/20/23 Rocky Zepeda DO 500 [place] [address] Physician Gastroenterology 09/20/23 Philip Dumont MD 6 [place] [address] Physician Ophthalmology 09/22/23 Meredith [place] PA-C 9 [place] [address] Assigned Gastroenterology Provider 11/01/23 Neil Kent MD [address] [address] Dermatology 11/02/23 [place] [address] [address] Neurological Surgery 12/26/23 Audrey Waite PA-C 500 [place] [address] Physician Cutter Grinder Operator Dermatology 02/28/24 Valery Veronica PA-C [address]406 [address] [place] [address] Physician Cutter Grinder Operator Dermatology 04/10/24 Herminia Hatch MD [facility]5 [place], [place] [phone] Assigned Rheumatology Provider 07/02/24 documented as of this encounter
--- OUTSIDE RECORDS SUMMARY | 2024-08-28 18:25 | XMS_ITS | Encounter Summary ---
Author Organization [facility] Address [address] [place] [address] Care Team Providers Care Event Sales Representative Name Role Phone Rakesh Cid PA-C Unavailable [phone] Rakesh Cid PA-C Primary Care Provider [phone] Lita Oseguera Unavailable Unavailable Rakesh Cid PA-C Unavailable [phone] Isaura Lamar RN Unavailable Unavailable Lita Oseguera Unavailable Unavailable Marija Edgar APRN PRESS TENDER STAR SIGNAL Primary Care Provider + Chanelle Mccann APRN CN Unavailab le Lesley Guillermo CHKamryn Unavailable [phone] Kyara De La Fuente RN Unavailable [phone] Marija Edgar APRN PRESS TENDER STAR SIGNAL Unavailable [phone] Mynor Broussard MD Unavailable [phone] Keisha Dotson MD Unavailable [phone] Mary Mejia Unavailable Unavailable Stacey Briones ASSIGNMENT OFFICER Unavailable [phone] Lesley Guillermo CHW Unavailable [phone] Mary Mejia Unavailable Unavailable Lita Oseguera Unavailable Unavailable Galo Burrell MD Unavailable Unavailable Cristina Wood Unavailable Lesley Guillermo [facility] Unavailable Meredith Bedoya Unavailable Unavailable Cristina Wood Unavailable ThangKendrickDiana Stanislav [facility] Unavailable [phone] Rain GalavizC Unavailable Summer Lara MD Unavailable [phone] Summer Lara MD Unavailable +[phone] Summer Lara MD Unavailable [phone] Tavia Wyatt MD Unavailable [phone] Johnny Murillo MD Unavailable Erica Farrell APRN PRESS TENDER STAR SIGNAL Unavailable Teresita Bean [facility] Unavailable Tavia Wyatt MD Unavailable [phone] Diana [place] [facility] Unavailable [phone] Rich Barrett MD Unavailable [phone] Neil Kent MD Unavailable Roney Story DPM Unavailable Erica Farrell VAULT CASHIER PRESS TENDER STAR SIGNAL Unavailable + Diana Desir [facility] Unavailable [phone] Jelena David OD Unavailable Galo Burrell MD Unavailable Unavailable Livan Sharif MD Unavailable + Livan Sharif MD Unavailable + Catherine Cm MD Unavailable + Valery VeronicaC Unavailable [phone] Catherine Cm MD Unavailable + Johnny Murillo MD Unavailable [phone] Brea Quinn VAULT CASHIER PRESS TENDER STAR SIGNAL Unavailable [phone] Brea Quinn VAULT CASHIER PRESS TENDER STAR SIGNAL Unavailable [phone] Jose Francisco Johnson MD Unavailable Livan Sharif MD Unavailable Catherine Cm MD Unavailable + Sydnie Martinez RN Unavailable Unavailable Alfonso Renteria MD Unavailable Esha Grimm PA-C Primary Care Provider Cheng Todd PA-C Unavailable Radha Lomeli VAULT CASHIER PRESS TENDER STAR SIGNAL Unavailable Jelena David OD Unavailable [phone] Pao Joseph RN Unavailable Unavailable Esha Grimm PA-C Unavailable [phone] Valery Veronica PA-C Unavailable Rey Tay MD Unavailable Rocky Zepeda DO Unavailable Philip Dumont MD Unavailable Meredith Carrera PA-C Unavailable [phone] Neil Kent MD Unavailable Juan Pablo Emmanuel MD Unavailable Audrey Waite PA-C Unavailable Valery Veronica PA-C Unavailable Herminia Hatch MD Unavailable Encounter Details Date Type Department Care Team (Late st Contact Info) Description 02/27/[address], [address] [place] [address] Rakesh Cid PA-C [address] [place] [address] Social History Tobacco Use Types Packs/Day Years [...] CDT Legal Sex Female 4:13 AM CHEMICAL TREATMENT OPERATOR Gender Identity Female 03/02/2021 5:45 PM [...] message?: Yes at Home number on file [phone] (home) Violet Jeffrey Patient Mold Shaker documented in this encounter Plan of Treatment Upcoming Encounters Date Type Department Care Team (Late st Contact Info) Description 10/23/2024 9:30 AM CDT Office Visit [facility] Neurology [facility]ics - [address], [address] [place] [address] [place] [address] [place], [place] [address] Johnny Penn MD [address] [place], [place] [address] documented as of this encounter Visit Diagnoses Not on filedocumented in this encounter Additional Health Concerns Infection Onset Date Last Indicated Resolved Time Rule Out COVID-19 07/30/2020 07/30/2020 07/30/2020 7:11 PM CHEMICAL TREATMENT OPERATOR Rule Out COVID-19 08/30/2020 08/30/2020 08/30/2020 5:05 PM CHEMICAL TREATMENT OPERATOR Rule Out COVID-19 09/24/2020 09/24/2020 09/24/2020 9:24 AM CDT Rule Out COVID-19 11/05/2020 11/05/2020 11/06/2020 1:09 PM CDT Rule Out COVID-19 05/11/2021 05/11/2021 05/13/2021 10:18 AM CDT Rule Out COVID-19 07/13/2021 07/13/2021 07/14/2021 3:04 PM CHEMICAL TREATMENT OPERATOR Rule Out COVID-19 07/18/2021 07/18/2021 07/20/2021 1:56 PM CHEMICAL TREATMENT OPERATOR COVID-19 07/18/2021 07/18/2021 08/08/2021 11:3 9 PM CHEMICAL TREATMENT OPERATOR Rule Out COVID-19 12/18/2021 12/18/2021 12/19/2021 11:34 AM CDT Rule Out COVID-19 02/24/2022 02/24/2022 02/25/2022 1:08 PM CDT Rule Out COVID-19 04/26/2022 04/26/2022 04/26/2022 6:47 AM CDT Rule Out COVID-19 05/17/2022 05/17/2022 05/17/2022 10:20 PM CHEMICAL TREATMENT OPERATOR Rule Out COVID-19 06/09/2022 06/09/2022 06/09/2022 9:35 AM CHEMICAL TREATMENT OPERATOR COVID-19 06/09/2022 06/09/2022 06/30/2022 11:4 1 PM CHEMICAL TREATMENT OPERATOR Rule Out COVID-19 11/10/2022 11/10/2022 11/11/2022 12:17 PM CDT Rule Out COVID-19 03/07/2023 03/07/2023 03/07/2023 1:20 PM CDT Rule Out COVID-19 12/26/2023 12/26/2023 12/26/2023 9:50 AM CDT Rule Out COVID-19 04/09/2024 04/09/2024 04/10/2024 6:48 PM CDT Assessment Noted Time PHQ-9 Depression Total Score: 11 020 1:14 PM CDT documented as of this encounter Care Teams Event Sales Representative Relationship Specialty Start Date End Date Rakesh Cid PA-C [address] [place] [address] PCP - General Physician Pharmaceutical Process Engineer - Medical 05/14/19 04/29/20 Marija Edgar APRN CNP PCP - General Nurse Practitioner 04/30/20 04/14/23 Esha Grimm PA-C [address] [place] [address] PCP - General Family Medicine 05/04/23 Rakesh Cid PA-C [address] [place] [address] Assigned PCP 05/06/19 03/01/20 Lita Oseguera Personal Advocate & Liaison (PAL) 02/28/20 03/27/23 Rakesh Cid PA-C [address] [place] [address] Assigned PCP 03/02/20 06/07/20 Isaura Lamar, RN Personal Advocate & Liaison (PAL) Family Practice 04/03/20 04/06/20 Lita Oseguera Personal Advocate & Liaison (PAL) 04/07/20 04/29/20 [place] [address] [place] [address] 200 [place], [place] 637067 Assigned OBGYN Provider 05/02/2005/09 Lesley Guillermo, W Community Health Worker 05/30/2005/12 Kyara De La Fuente, VJ Specialty Turner Off Neurology 06/04/20 03/05/21 Marija Edgar APRN PRESS TENDER STAR SIGNAL Assigned PCP 06/08/20 04/29/23 Mynor Broussard MD [address] [facility] 500 [place], [place] 752145 Assigned Surgical Provider 06/01/20 11/28/21 Keisha Dotson MD 909 [place], [place] 495045 Assigned Neuroscience Provider 06/04/20 04/01/23 Mary Mejia Financial Resource Worker 08/07/20 08/21/20 Stacey Briones, ASSIGNMENT OFFICER Lead Turner Off Primary Care - CC 08/11/2012/30 Lesley Guillermo CHW Community Health Worker 08/11/2010/01 Mary Mejia Financial Resource Worker 09/02/20 10/06/20 Lita Oseguera Personal Advocate & Liaison (PAL) Family Medicine 09/10/20 09/21/20 Galo Burrell MD Assigned Heart and Vascular Provider 10/05/20 04/02/22 Cristina Wood Financial Resource Worker 10/07/20 10/14/20 Lesley Guillermo, [facility] Community Health Worker 10/23/2012/30 Meredith Bedoya Financial Resource Worker 10/23/20 11/23/20 Cristina Wood Financial Resource Worker 02/09/21 02/09/21 Diana Desir, [facility] [address] [facility] [place], [place] [address] Pharmacist Pharmacist 04/17/21 Rain Galaviz PA-C [address] [place] [address] [address] [place], [place] [id number] Physician Pharmaceutical Process Engineer Dermatology 04/28/21 Summer Lara MD [address] [place] [address] 021194 Assigned OBGYN Provider 05/10/2105/23 Summer Lara MD [address] [place] [address] 868384 Assigned OBGYN Provider 05/31/21 Summer Lara MD [address] [place] [address] Assigned OBGYN Provider 05/24/2105/30 Tavia Wyatt MD [address] [place] [address] Dermatology 07/14/21 Johnny Murillo MD [address] [place] [address] Assigned Musculoskeletal Provider 08/30/21 03/17/22 Erica Farrell APRN PRESS TENDER STAR SIGNAL [address] [place] [address] Nurse Practitioner Cardiovascular Disease 09/09/21 Teresita Bean, [facility] [address] [facility] [address] [place] [id number] Pharmacist Pharmacist 09/24/21 09/29/21 Tavia Wyatt MD [address] [place] [address] Assigned Surgical Provider 11/29/21 05/07/22 Diana Desir, [facility] [address] [place] [address] Assigned MTM Pharmacist 01/02/22 Rich Barrett MD [address] [facility] 9[address] [place], [place] 4276[address] Physician Ophthalmology 01/21/22 Neil Kent MD 500 [place] [address] Dermatology 02/24/22 Roney Story DPM [address] [facility] [address] [place], [place] 131617 Assigned Musculoskeletal Provider 03/20/22 08/13/22 Erica Farrell APRN PRESS TENDER STAR SIGNAL 1700 [place] [address] Assigned Heart and Vascular Provider 04/03/22 04/16/22 Diana Desir, [facility] [address] [place], [place] 159176 Assigned MTM Pharmacist 04/07/22 Jelena David OD [address] [facility] [place] [address] Assigned Surgical Provider 05/08/22 10/08/22 Galo Burrell MD Assigned Heart and Vascular Provider 04/17/22 06/11/22 Livan Sharif MD [address], [facility]00 [place], [place] 7[address]85 Cardiovascular Disease 05/14/22 Livan Sharif MD [address], [facility]00 [place] [address] Assigned Heart and Vascular Provider 06/12/22 07/23/22 Catherine Cm MD [address] [facility]00 [place] [address] Cardiovascular Disease 07/21/22 Valery Veronica, PA-C [address] [place] [address] Physician Pharmaceutical Process Engineer Dermatology 07/21/22 Catherine Cm MD [address] [facility] [place] [address] Assigned Heart and Vascular Provider 07/24/22 11/05/22 Johnny Murillo MD [address] [address] Assigned Musculoskeletal Provider 08/14/22 10/08/22 Brea Quinn APRN PRESS TENDER STAR SIGNAL [address] [place] [address] 326105 Nurse Practitioner Dermatology 09/21/22 Brea Quinn APRN PRESS TENDER STAR SIGNAL [address] [place] [address] 242402 Assigned Surgical Provider 10/09/22 05/01/24 [place] [address] [address] Assigned Musculoskeletal Provider 10/09/22 05/01/24 Livan Sharif MD [address] [facility] [address] [place] [address] Assigned Heart and Vascular Provider 11/06/22 11/12/22 Catherine Cm MD [address] [facility] [address] [place] 508135 Assigned Heart and Vascular Provider 11/13/22 05/27/23 Sydnie Martinez RN Personal Advocate & Liaison (PAL) Family Medicine 03/28/23 07/31/23 Alfonso Renteria MD [address] [facility] [address] 200 [place] [address] Assigned Neuroscience Provider 04/02/23 Cheng Todd PA-C [address] [place] [address] Assigned PCP 04/30/23 07/15/23 Radha Lomeli APRN PRESS TENDER STAR SIGNAL 6[address] [facility] [address] [place] [address] Assigned Heart and Vascular Provider 05/28/23 Jelena David OD [address] [facility] [place] [address] Ophthalmology 06/15/23 Pao Joseph, VJ Personal Advocate & Liaison (PAL) Nurse 08/01/23 11/07/23 Esha Grimm PA-C [address] [place] [address] Assigned PCP 07/16/23 Valery Veronica PA-C 9 [place], [place] 57[address] Physician Pharmaceutical Process Engineer Dermatology 09/19/23 Rey Tay MD 909 [place] [address] Gastroenterology 09/20/23 Rocky Zepeda DO 500 [place] [address] Physician Gastroenterology 09/20/23 Philip Dumont MD 6 [place] [address] Physician Ophthalmology 09/22/23 Meredith Carrera PA-C 9 [place] [address] Assigned Gastroenterology Provider 11/01/23 Neil Kent MD [address] [address] MD Dermatology 11/02/23 [place] [address] [address] Neurological Surgery 12/26/23 Audrey Waite PA-C 500 [place] [address] Physician Pharmaceutical Process Engineer Dermatology 02/28/24 Valery Veronica PA-C 710387 [address], [place] [address] Physician Pharmaceutical Process Engineer Dermatology 04/10/24 Herminia Hatch MD [facility]5 [place], [place] [address] Assigned Rheumatology Provider 07/02/24 documented as of this encounter
--- OUTSIDE RECORDS SUMMARY | 2024-08-28 18:25 | XMS_ITS | Encounter Summary ---
Author Organization [facility] Address [address] [place] [address] Care Team Providers Care Miter Grinder Operator Name Role Phone Lita Oseguera Unavailable Unavailable Marija Edgar APRN CLINICAL INFORMATICS STRATEGIST Primary Care Provider + Marija Edgar APRN CLINICAL INFORMATICS STRATEGIST Unavailable [phone] Mynor Broussard MD Unavailable [phone] Keisha Dotson MD Unavailable Galo Burrell MD Unavailable Unavailable Diana Desir [facility] Unavailable Rain Galaviz PA-C Unavailable Summer Lara MD Unavailable [phone] Tavia Wyatt MD Unavailable Johnny Murillo MD Unavailable [phone] Erica Farrell APRN CLINICAL INFORMATICS STRATEGIST Unavailable Teresita Bean [facility] Unavailable Taiva Wyatt MD Unavailable Diana Desir [facility] Unavailable Rich Barrett MD Unavailable [phone] Neil Kent MD Unavailable Roney Story DPM Unavailable Erica Farrell PATIENT FINANCIAL COORDINATOR CLINICAL INFORMATICS STRATEGIST Unavailable Thang Diana Stanislav [facility] Unavailable Jelena David OD Unavailable Galo Burrell MD Unavailable Unavailable Livan Sharif MD Unavailable + Livan Sharif MD Unavailable + Catherine Cm MD Unavailable + Valery Veronica PA-C Unavailable [phone] Catherine Cm MD Unavailable + Johnny Murillo MD Unavailable [phone] Brea Quinn PATIENT FINANCIAL COORDINATOR CLINICAL INFORMATICS STRATEGIST Unavailable [phone] Brea Quinn PATIENT FINANCIAL COORDINATOR CLINICAL INFORMATICS STRATEGIST Unavailable [phone] Jose Francisco Johnson MD Unavailable Livan Sharif MD Unavailable + IsCatherine hobbs MD Unavailable + Sydnie Martinez RN Unavailable Unavailable Alfonso Renteria MD Unavailable Esha Grimm-C Primary Care Provider Cheng Todd PA-C Unavailable Radha Lomeli PATIENT FINANCIAL COORDINATOR CLINICAL INFORMATICS STRATEGIST Unavailable [phone] Jelena David OD Unavailable Pao Joseph RN Unavailable Unavailable Esha Grimm-C Unavailable [phone] JeremíasValery damon PA-C Unavailable [phone] Rey Tay MD Unavailable Rocky Zepeda DO Unavailable Philip Dumont MD Unavailable [phone] Meredith CarreraC Unavailable [phone] Neil Kent MD Unavailable Juan Pablo Emmanuel MD Unavailable [phone] Audrey WaiteC Unavailable [phone] Valery Veronica PA-C Unavailable [phone] Herminia Hatch MD Unavailable Encounter Details Date Type Department Care Team (Late st Contact Info) Description 08/04/2021 [facility] [address] [address] [place] Social History Tobacco [...] do you attend [facility] or pentecostal services? More than 4 times [...] Answer Date Recorded PHQ-2 Score 0 04/02/2021 [facility] [...] in a prison (including now)? No 08/11/2020 Argyle Depression Scale Answer Date Recorded Argyle Depression Score 5 01/14/2021 Last EPDS Self Harm Result Not on file 01/14 Education Answer Date Recorded What is the highest level of school you have completed or the highest degree you have received? 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 RETAIL MERCHANDISER Gender Identity Female 03/02/2021 5:45 PM CDT Sexual Orientation Straight 02/28/2020 12 :51 AM CDT COVID-19 Exposure Response Date Recorded In the last month, have you been in contact with someone who was confirmed or suspected to have Coronavirus / COVID-19? No / Unsure 08/03/2021 2:24 PM RETAIL MERCHANDISER documented as of this encounter Plan of Treatment Upcoming Encounters Date Type Department Care Team (Late st Contact Info) Description 10/23/2024 9:30 AM CDT Office Visit [facility] Neurology Clinics [address], [address] [place] [address] [place] [address] [address] [place] [address] Johnny Penn MD [address] [place] [address] documented as of this encounter Visit Diagnoses Not on filedocumented in this encounter Additional Health Concerns Infection Onset Date Last Indicated Resolved Time COVID-19 07/18/2021 07/18/2021 08/08/2021 11:3 9 PM RETAIL MERCHANDISER Rule Out COVID-19 12/18/2021 12/18/2021 12/19/2021 11:34 AM CDT Rule Out COVID-19 02/24/2022 02/24/2022 02/25/2022 1:08 PM CDT Rule Out COVID-19 04/26/2022 04/26/2022 04/26/2022 6:47 AM CDT Rule Out COVID-19 05/17/2022 05/17/2022 05/17/2022 10:20 PM RETAIL MERCHANDISER Rule Out COVID-19 06/09/2022 06/09/2022 06/09/2022 9:35 AM RETAIL MERCHANDISER COVID-19 06/09/2022 06/09/2022 06/30/2022 11:4 1 PM RETAIL MERCHANDISER Rule Out COVID-19 11/10/2022 11/10/2022 11/11/2022 12:17 PM CDT Rule Out COVID-19 03/07/2023 03/07/2023 03/07/2023 1:20 PM CDT Rule Out COVID-19 12/26/2023 12/26/2023 12/26/2023 9:50 AM CDT Rule Out COVID-19 04/09/2024 04/09/2024 04/10/2024 6:48 PM CDT Assessment Noted Time PHQ-9 Depression Total Score: 2 04/02/20 10:19 AM CDT documented as of this encounter Care Teams Miter Grinder Operator Relationship Specialty Start Date End Date Marija Edgar APRN CNP PCP - General Nurse Practitioner 04/30/20 04/14/23 Esha Grimm PA-C [address] [place] [address] PCP - General Family Medicine 05/04/23 Lita Oseguera Personal Advocate & Liaison (PAL) 02/28/20 03/27/23 Marija Edgar APRN CLINICAL INFORMATICS STRATEGIST Assigned PCP 06/08/20 04/29/23 Mynor Broussard MD 6363 [facility] 500 [place], [place] [address] Assigned Surgical Provider 06/01/20 11/28/21 Keisha Dotson MD 909 [place], [place] 137145 Assigned Neuroscience Provider 06/04/20 04/01/23 Galo Burrell MD Assigned Heart and Vascular Provider 10/05/20 04/02/22 [facility] 3033 [place] [address] Pharmacist Pharmacist 04/17/21 Rain Galaviz PA-C [address] [facility] [address] [place] [address] Physician Power Lineman Dermatology 04/28/21 Summer Lara MD [address] [place] [address] 347514 Assigned OBGYN Provider 05/31/21 9 2 Tavia Wyatt MD [address] [place] [address] 570514 Dermatology 07/14/21 Johnny Murillo MD [address] [place] [address] Assigned Musculoskeletal Provider 08/30/21 03/17/22 Erica Farrell APRN CLINICAL INFORMATICS STRATEGIST 6[address] [facility] [address] [place] [address] Nurse Practitioner Cardiovascular Disease 09/09/21 Teresita Bean [facility] [address] [facility] [place] [address] Pharmacist Pharmacist 09/24/21 09/29/21 Tavia Wyatt MD [address] [place] [address] Assigned Surgical Provider 11/29/21 05/07/22 [facility] 3033 [place] [address] Assigned MTM Pharmacist 01/02/22 Rich Barrett MD 516 [facility] 9A [place] [address] Physician Ophthalmology 01/21/22 Neil Kent MD 500 [place] [address] Dermatology 02/24/22 [place] [address] [facility] [address] [place] [address] Assigned Musculoskeletal Provider 03/20/22 08/13/22 Erica Farrell APRN CLINICAL INFORMATICS STRATEGIST 1700 [place] [address] Assigned Heart and Vascular Provider 04/03/22 04/16/22 Diana Desir, [facility] 3033 [place] [address] Assigned [place] Pharmacist 04/07/22 Jelena David OD [address] [facility] [place] [address] Assigned Surgical Provider 05/08/22 10/08/22 Galo Burrell MD Assigned Heart and Vascular Provider 04/17/22 06/11/22 Livan Sharif MD [address], [address] [place] 154945 Cardiovascular Disease 05/14/22 Livan Sharif MD [address], [address] [place] 4460[address] Assigned Heart and Vascular Provider 06/12/22 07/23/22 Catherine Cm MD [address] [place] 910255 Cardiovascular Disease 07/21/22 Valery Veronica, PAUcheC 909 [place], [place] [address] Physician Power Lineman Dermatology 07/21/22 Catherine Cm MD [address] [place] 393005 Assigned Heart and Vascular Provider 07/24/22 11/05/22 Johnny Murillo MD [address] [place] [address] Assigned Musculoskeletal Provider 08/14/22 10/08/22 Brea Quinn APRN CLINICAL INFORMATICS STRATEGIST [address] [place] [address] Nurse Practitioner Dermatology 09/21/22 Brea Quinn APRN CLINICAL INFORMATICS STRATEGIST [address] [place] [address] Assigned Surgical Provider 10/09/22 05/01/24 [place] [address] [address] Assigned Musculoskeletal Provider 10/09/22 05/01/24 Livan Sharif MD [address], [facility] [address] [place] [address] Assigned Heart and Vascular Provider 11/06/22 11/12/22 Catherine Cm MD [address] [facility] [address] [place] [address] Assigned Heart and Vascular Provider 11/13/22 05/27/23 Sydnie Martinez, VJ Personal Advocate & Liaison (PAL) Family Medicine 03/28/23 07/31/23 Alfonso Renteria MD [address] [facility] 200 [place], [place] 9[address]86 Assigned Neuroscience Provider 04/02/23 Cheng Todd PA-C [address] [place] [address] [id number] Assigned PCP 04/30/23 07/15/23 Radha Lomeli APRN CLINICAL INFORMATICS STRATEGIST 6405 [facility] [address] [place], [place] [address] Assigned Heart and Vascular Provider 05/28/23 Jelena David OD [address] [facility] [address] [place] [id number] MD Ophthalmology 06/15/23 Pao Joseph, VJ Personal Advocate & Liaison (PAL) Nurse 08/01/23 11/07/23 Esha Grimm PA-C [address] [place] [address] Assigned PCP 07/16/23 Valery Veronica PA-C [address] [place] [address] 858025 Physician Power Lineman Dermatology 09/19/23 Rey Tay MD [address] [place] [address] 649165 Gastroenterology 09/20/23 Rocky Zepeda DO [address] [place] [address] [phone] Physician Gastroenterology 09/20/23 Philip Dumont MD [address] [place] [address] 557455 Physician Ophthalmology 09/22/23 Meredith Carrera PA-C 909 [place], [place] 243685 Assigned Gastroenterology Provider 11/01/23 Neil Kent MD [address] [address] Dermatology 11/02/23 [place] [address] 408857 Neurological Surgery 12/26/23 Audrey Waite PA-C 500 [place] [address] Physician Power Lineman Dermatology 02/28/24 Valery Veronica PA-C [address] [place] [address] Physician Power Lineman Dermatology 04/10/24 Herminia Hatch MD 1875 [place], [place] 9929[address] Assigned Rheumatology Provider 07/02/24 documented as of this encounter
--- OUTSIDE RECORDS SUMMARY | 2024-08-28 18:26 | XMS_ITS | Encounter Summary ---
Author Organization [facility] Address [address] [place] [address] Care Team Providers Care Job Estimator Name Role Phone Lita Oseguera Unavailable Unavailable Marija Edgar APRN ADVERTISING REPRESENTATIVE Primary Care Provider + Marija Edgar APRN ADVERTISING REPRESENTATIVE Unavailable Mynor Broussard MD Unavailable Keisha Dotson MD Unavailable Galo Burrell MD Unavailable Unavailable Diana Desir [facility] Unavailable [phone] Rain Galaviz PA-C Unavailable Sumemr Lara MD Unavailable [phone] Tavia Wyatt MD Unavailable Johnny Murillo MD Unavailable Erica Farrell APRN ADVERTISING REPRESENTATIVE Unavailable Teresita Bean [facility] Unavailable Tavia Wyatt MD Unavailable Diana Desir [facility] Unavailable Rich Barrett MD Unavailable [phone] Neil Kent MD Unavailable Roney Story DPM Unavailable Erica Farrell STRINGER MACHINE TENDER ADVERTISING REPRESENTATIVE Unavailable Thang Diana Stanislav [facility] Unavailable Jelena David OD Unavailable Galo Burrell MD Unavailable Unavailable Livan Sharif MD Unavailable + Livan Sharif MD Unavailable + Catherine Cm MD Unavailable + Valery Veronica PA-C Unavailable [phone] Catherine Cm MD Unavailable + Johnny Murillo MD Unavailable [phone] Brea Quinn STRINGER MACHINE TENDER ADVERTISING REPRESENTATIVE Unavailable [phone] Brea Quinn STRINGER MACHINE TENDER ADVERTISING REPRESENTATIVE Unavailable [phone] Jose Francisco Johnson MD Unavailable Livan Sharif MD Unavailable + IsCatherine hobbs MD Unavailable + Sydnie Martinez RN Unavailable Unavailable Alfonso Renteria MD Unavailable Esha Grimm-C Primary Care Provider Cheng Todd PA-C Unavailable Radha Lomeli STRINGER MACHINE TENDER ADVERTISING REPRESENTATIVE Unavailable [phone] Jelena David OD Unavailable [phone] Pao Joseph RN Unavailable Unavailable Esha Grimm-C Unavailable [phone] JeremíasValery damon PA-C Unavailable [phone] Rey Tay MD Unavailable Rocky Zepeda DO Unavailable Philip Dumont MD Unavailable [phone] Meredith CarreraC Unavailable [phone] Neil Kent MD Unavailable Juan Pablo Emmanuel MD Unavailable [phone] Audrey WaiteC Unavailable [phone] Valery Veronica PA-C Unavailable [phone] Herminia Hatch MD Unavailable Encounter Details Date [...] week 08/07/2020 How often do you attend [facility] or synagogue services? More than 4 times [...] Answer Date Recorded PHQ-2 Score 0 04/02/2021 [facility] - [...] in a half-way (including now)? No 08/11/2020 Killdeer Depression Scale Answer Date Recorded Killdeer Depression Score 5 01/14/2021 Last EPDS Self [...] COVID-19? No / Unsure 08/03/2021 2:24 PM RENTAL BOATS CARETAKER documented as of this encounter Plan of Treatment Upcoming Encounters Date Type Department Care Team (Late st Contact Info) Description 10/23/2024 9:30 AM CDT Office Visit [facility] Neurology [address], [address] [place] [address] [place] [address] [place] [address]07 Johnny Penn MD [address] [facility] [place] [address] documented as of this encounter Visit Diagnoses Not on filedocumented in this encounter Additional Health Concerns Infection Onset Date Last Indicated Resolved Time COVID-19 07/18/2021 07/18/2021 08/08/2021 11:3 9 PM RENTAL BOATS CARETAKER Rule Out COVID-19 12/18/2021 12/18/2021 12/19/2021 11:34 AM CDT Rule Out COVID-19 02/24/2022 02/24/2022 02/25/2022 1:08 PM CDT Rule Out COVID-19 04/26/2022 04/26/2022 04/26/2022 6:47 AM CDT Rule Out COVID-19 05/17/2022 05/17/2022 05/17/2022 10:20 PM RENTAL BOATS CARETAKER Rule Out COVID-19 06/09/2022 06/09/2022 06/09/2022 9:35 AM RENTAL BOATS CARETAKER COVID-19 06/09/2022 06/09/2022 06/30/2022 11:4 1 PM RENTAL BOATS CARETAKER Rule Out COVID-19 11/10/2022 11/10/2022 11/11/2022 12:17 PM CDT Rule Out COVID-19 03/07/2023 03/07/2023 03/07/2023 1:20 PM CDT Rule Out COVID-19 12/26/2023 12/26/2023 12/26/2023 9:50 AM CDT Rule Out COVID-19 04/09/2024 04/09/2024 04/10/2024 6:48 PM CDT Assessment Noted Time PHQ-9 Depression Total Score: 2 04/02/20 10:19 AM CDT documented as of this encounter Care Teams Job Estimator Relationship Specialty Start Date End Date Marija Edgar APRN ADVERTISING REPRESENTATIVE PCP - General Nurse Practitioner 04/30/20 04/14/23 Esha Grimm PA-C [address] [place] [address] PCP - General Family Medicine 05/04/23 Lita Oseguera Personal Advocate & Liaison (PAL) 02/28/20 03/27/23 Marija Edgar APRN ADVERTISING REPRESENTATIVE Assigned PCP 06/08/20 04/29/23 Mynor Broussard MD [address] [facility] 500 [place] [address] Assigned Surgical Provider 06/01/20 11/28/21 Keisha Dotson MD 909 [place] [address] Assigned Neuroscience Provider 06/04/20 04/01/23 Galo Burrell MD Assigned Heart and Vascular Provider 10/05/20 04/02/22 Diana Desir, [facility] [address] [place] [address] Pharmacist Pharmacist 04/17/21 Rain Galaviz PA-C [address] [facility] [address] [place] [address] Physician Stitcher Utility Dermatology 04/28/21 Summer Lara MD [address] [place] [address] Assigned OBGYN Provider 05/31/21 2 Tavia Wyatt MD [address] [place], [place] 99[address] Dermatology 07/14/21 Johnny Murillo MD [address] [facility] [address] [place] [address] Assigned Musculoskeletal Provider 08/30/21 03/17/22 Erica Farrell APRN ADVERTISING REPRESENTATIVE [address] [facility] [address] [place] [address] Nurse Practitioner Cardiovascular Disease 09/09/21 Teresita Bean, [facility] [address] [place] [address] Pharmacist Pharmacist 09/24/21 09/29/21 Tavia Wyatt MD [address] [place] [address] Assigned Surgical Provider 11/29/21 05/07/22 Diana Desir, [facility] [address] [place] [address] Assigned MTM Pharmacist 01/02/22 Rich Barrett MD [address] 296[address] Physician Ophthalmology 01/21/22 Niel Kent MD [address] [place], [place] [address] Dermatology 02/24/22 Roney Story DPM [address] [facility] [address] [place], [place] 988387 Assigned Musculoskeletal Provider 03/20/22 08/13/22 Erica Farrell APRN ADVERTISING REPRESENTATIVE [address] [place] [address] Assigned Heart and Vascular Provider 04/03/22 04/16/22 Diana Desir, [facility] [address] [facility] [place] [place] [address] Assigned MTM Pharmacist 04/07/22 FrankieJelena OD [address] [facility] [place] [address] Assigned Surgical Provider 05/08/22 10/08/22 Galo Burrell MD Assigned Heart and Vascular Provider 04/17/22 06/11/22 Liavn Sharif MD [address] [place], [place] [address] Cardiovascular Disease 05/14/22 Livan Sharif MD [address] [place], [place] [address] Assigned Heart and Vascular Provider 06/12/22 07/23/22 Catherine Cm MD [address] [place] [address] Cardiovascular Disease 07/21/22 Valery Veronica, PA-C [address] [place], [place] 4713[address] Physician Stitcher Utility Dermatology 07/21/22 Catherine Cm MD [address] [place], [place] 7[address] Assigned Heart and Vascular Provider 07/24/22 11/05/22 Johnny Murillo MD [address] [place] [address] Assigned Musculoskeletal Provider 08/14/22 10/08/22 Brea Quinn APRN ADVERTISING REPRESENTATIVE [address] [facility] [place], [place] 6[address] Nurse Practitioner Dermatology 09/21/22 Brea Quinn APRN ADVERTISING REPRESENTATIVE 64[address] [facility] [place], [place] 943942 Assigned Surgical Provider 10/09/22 05/01/24 [place] [address] [facility] [address] [place], [place] 426517 Assigned Musculoskeletal Provider 10/09/22 05/01/24 Livan Sharif MD [address], [facility] [address] [place] [address] Assigned Heart and Vascular Provider 11/06/22 11/12/22 Catherine Cm MD [address] [facility] [address] [place] [address] Assigned Heart and Vascular Provider 11/13/22 05/27/23 Sydnie Martinez RN Personal Advocate & Liaison (PAL) Family Medicine 03/28/23 07/31/23 Alfonso Renteria MD [address] [facility] 200 [place] [address] Assigned Neuroscience Provider 04/02/23 Cheng Todd PA-C [address] [place] [address] Assigned PCP 04/30/23 07/15/23 Radha Lomeli APRN CNP [address] [facility] [address] [address] [place] [address] Assigned Heart and Vascular Provider 05/28/23 Jelena David OD [address] [facility] [place] [address] MD Ophthalmology 06/15/23 Pao Joseph, VJ Personal Advocate & Liaison (PAL) Nurse 08/01/23 11/07/23 Esha Grimm PA-C [address] [place] [phone] Assigned PCP 07/16/23 Valery Veronica PA-C [address] [place] [address] 889525 Physician Stitcher Utility Dermatology 09/19/23 Rey Tay MD [address] [place] [address] 866245 Gastroenterology 09/20/23 Rocky Zepeda DO [address] [place] [address] 913035 Physician Gastroenterology 09/20/23 Philip Dumont MD [address] [place] [address] Physician Ophthalmology 09/22/23 Meredith Carrera PA-C 909 [place] [address] Assigned Gastroenterology Provider 11/01/23 Neil Kent MD [address] [address] Dermatology 11/02/23 [place] [address] [place] [address] [address] Neurological Surgery 12/26/23 Audrey Waite PA-C [address] [place] [address] Physician Stitcher Utility Dermatology 02/28/24 Valery Veronica PA-C 766930 [address], [place] [address] Physician Stitcher Utility Dermatology 04/10/24 Herminia Hatch MD [facility]5 [place], [place] [address] Assigned Rheumatology Provider 07/02/24 documented as of this encounter
--- OUTSIDE RECORDS SUMMARY | 2024-08-28 18:26 | XMS_ITS | Encounter Summary ---
Author Organization [facility] Address [address] [place] [address] Care Team Providers Care Rope Silica Machine Operator Name Role Phone Lita Oseguera Unavailable Unavailable Marija Edgar APRN SOIL FIELD TECHNICIAN Primary Care Provider + Marija Edgar APRN SOIL FIELD TECHNICIAN Unavailable [phone] Keisha Dotson MD Unavailable Diana Desir [facility] Unavailable [phone] Rain Galaviz PA-C Unavailable Tavia Wyatt MD Unavailable [phone] Erica Farrell APRN SOIL FIELD TECHNICIAN Unavailable Rich Barrett MD Unavailable [phone] Neil Kent MD Unavailable Diana Desir [facility] Unavailable [phone] Livan Sharif MD Unavailable Catherine Cm MD Unavailable + Valery Veronica PA-C Unavailable [phone] Catherine Cm MD Unavailable + Brea Quinn IT SYSTEMS ADMINISTRATOR SOIL FIELD TECHNICIAN Unavailable [phone] Brea Quinn IT SYSTEMS ADMINISTRATOR SOIL FIELD TECHNICIAN Unavailable Jose Francisco Johnson MD Unavailable Livan Sharif MD Unavailable Catherine Cm MD Unavailable + Sydnie Martinez RN Unavailable Unavailable Alfonso Renteria MD Unavailable [phone] Esha Grimm PA-C Primary Care Provider Cheng Todd PA-C Unavailable [phone] Radha Lomeli IT SYSTEMS ADMINISTRATOR SOIL FIELD TECHNICIAN Unavailable Jelena David OD Unavailable Pao Joseph RN Unavailable Unavailable Esha Grimm PA-C Unavailable Valery Veronica PA-C Unavailable [phone] Rey Tay MD Unavailable Rocky Zepeda DO Unavailable Philip Dumont MD Unavailable Meredith Carrera PA-C Unavailable Neil Kent MD Unavailable Juan Pablo Emmanuel MD Unavailable Audrey Waite PA-C Unavailable JeremíasValery damon PA-C Unavailable Herminia Hatch MD Unavailable Encounter Details Date Type Department Care Team (Late st Contact Info) Description 10/22/2022 MyC Medical Advice [facility] [address] [place] [phone] Lauren Claudio, PA-C [address] [place] [address] Social History Tobacco Use Types [...] How often do you attend sabianism or islam serv ices? Never 09/22/2021 Do [...] a long term (including now)? No 09/22/2021 Herreid Depression Scale Answer Date Recorded Herreid Depression Score 5 01/14/2021 Last EPDS Self Harm Result Not on file 01/14 Education Answer Date Recorded What is the highest level of school you have completed or the highest degree you have received? 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 AUTOMATIC BLOCKER Gender Identity Female 03/02/2021 5:45 PM CDT [...] Description 10/23/2024 9:30 AM CDT Office Visit [facility] Neurology [facility] [address] [facility], [address] [place] [address] [place] [address] [facility] [place] [place] [address] Johnny Penn MD [address] [place] [id number] documented as of this encounter Visit Diagnoses [...] documented as of this encounter Care Teams Rope Silica Machine Operator Relationship Specialty Start Date End Date Marija Edgar APRN SOIL FIELD TECHNICIAN PCP - General Nurse Practitioner 04/30/20 04/14/23 Esha Grimm PA-C [address] [place] [address] PCP - General Family Medicine 05/04/23 Lita Oseguera Personal Advocate & Liaison (PAL) 02/28/20 03/27/23 Marija Edgar APRN SOIL FIELD TECHNICIAN Assigned PCP 06/08/20 04/29/23 Keisha Dotson MD [address] [place], [place] [address] Assigned Neuroscience Provider 06/04/20 04/01/23 [facility] 3033 [place], [place] [address] Pharmacist Pharmacist 04/17/21 Rain Galaviz PA-C [address] [place] [address] [address] [place] [address] Physician Behavior Interventionist Dermatology 04/28/21 Tavia Wyatt MD [address] [place] [address] [address] [place] [address] Dermatology 07/14/21 Erica Farrell APRN SOIL FIELD TECHNICIAN [address] [place] [address] Nurse Practitioner Cardiovascular Disease 09/09/21 Rich Barrett MD [address] [address] Physician Ophthalmology 01/21/22 Neil Kent MD 500 [place], [place] [address] Dermatology 02/24/22 Diana Desir, [facility] [address] [place], [place] 17280[address] Assigned MTM Pharmacist 04/07/22 Livan Sharif MD [address], [facility]00 [place], [place] 0[address] Cardiovascular Disease 05/14/22 Catherine Cm MD [address] [facility]00 [place], [place] [address] Cardiovascular Disease 07/21/22 Valery Veronica, PA-C [address] [place] [address] Physician Behavior Interventionist Dermatology 07/21/22 Catherine Cm MD [address] [facility]00 [place], [place] 46[address]65 Assigned Heart and Vascular Provider 07/24/22 11/05/22 Brea Quinn APRN SOIL FIELD TECHNICIAN 500 [place] [address] Nurse Practitioner Dermatology 09/21/22 Brea Quinn APRN SOIL FIELD TECHNICIAN [address] [place] [address] 425012 Assigned Surgical Provider 10/09/22 05/01/24 [place] [address] [place] [address] Assigned Musculoskeletal Provider 10/09/22 05/01/24 Livan Sharif MD [address] [facility] [address] [place] [address] Assigned Heart and Vascular Provider 11/06/22 11/12/22 Catherine Cm MD [address] [facility] [address] [place] [address] Assigned Heart and Vascular Provider 11/13/22 05/27/23 Sydnie Martinez RN Personal Advocate & Liaison (PAL) Family Medicine 03/28/23 07/31/23 Alfonso Renteria MD [address] [facility] 200 [place] [address] Assigned Neuroscience Provider 04/02/23 Cheng Todd PA-C [address] [place] [address] [id number] Assigned PCP 04/30/23 07/15/23 Radha Lomeli APRN SOIL FIELD TECHNICIAN [address] [place] 7595[address] Assigned Heart and Vascular Provider 05/28/23 Jelena David OD [address] [facility] [place] [address] MD Ophthalmology 06/15/23 Pao Joseph, RN Personal Advocate & Liaison (PAL) Nurse 08/01/23 11/07/23 Esha Grimm PA-C [address] [place] [address] Assigned PCP 07/16/23 Valery Veronica PA-C [address] [place] [address] 361325 Physician Behavior Interventionist Dermatology 09/19/23 Rey Tay MD [address] [place] [address]355 Gastroenterology 09/20/23 Rocky Zepeda DO [address] [place] [address] 844055 Physician Gastroenterology 09/20/23 Philip Dumont MD [address] [place] [address] 904975 Physician Ophthalmology 09/22/23 Meredith Carrera PA-C [address] [place] [address] 698695 Assigned Gastroenterology Provider 11/01/23 Neil Kent MD [address] 532480 Dermatology 11/02/23 [place] [address] [place] [address] Neurological Surgery 12/26/23 Audrey Waite PA-C 500 [place] [address] Physician Behavior Interventionist Dermatology 02/28/24 Valery Veronica PA-C [address] [place] [address] Physician Behavior Interventionist Dermatology 04/10/24 Herminia Hatch MD [address] [place] [address] 55600125 Assigned Rheumatology Provider 07/02/24 documented as of this encounter
--- OUTSIDE RECORDS SUMMARY | 2024-08-28 18:26 | XMS_ITS | Encounter Summary ---
Author Organization [place] Address [address] [place] [address] Care Team Providers Care Cement Mason Apprentice Name Role Phone Lita Oseguera Unavailable Unavailable Marija Edgar APRN NET MOBILE DEVELOPER Primary Care Provider + Marija Edgar APRN NET MOBILE DEVELOPER Unavailable Mynor Broussard MD Unavailable [phone] Keisha Dotson MD Unavailable [phone] Galo Burrell MD Unavailable Unavailable Diana Desir [facility] Unavailable [phone] Rain Galaviz PA-C Unavailable [phone] Summer Lara MD Unavailable [phone] Tavia Wyatt MD Unavailable Johnny Murillo MD Unavailable Erica Farrell APRN NET MOBILE DEVELOPER Unavailable Teresita Bean [facility] Unavailable [phone] Tavia Wyatt MD Unavailable Diana Desir [facility] Unavailable [phone] Rich Barrett MD Unavailable [phone] Neil Kent MD Unavailable Roney Story DPM Unavailable Erica Farrell TRIAL COURT JUSTICE NET MOBILE DEVELOPER Unavailable Thang Diana Stanislav [facility] Unavailable Jelena David OD Unavailable Galo Burrell MD Unavailable Unavailable Livan Sharif MD Unavailable + Livan Sharif MD Unavailable + Catherine Cm MD Unavailable + Valery Veronica PA-C Unavailable [phone] Catherine Cm MD Unavailable + Johnny Murillo MD Unavailable [phone] JUSTICE NET MOBILE DEVELOPER Unavailable [phone] JUSTICE NET MOBILE DEVELOPER Unavailable [phone] Jose Francisco Johnson MD Unavailable Livan Sahrif MD Unavailable + IsCatherine hobbs MD Unavailable + Sydnie Martinez RN Unavailable Unavailable Alfonso Renteria MD Unavailable Esha Grimm-C Primary Care Provider Cheng Todd PA-C Unavailable Rahda Lomeli [facility]AL [facility] JUSTICE NET MOBILE DEVELOPER Unavailable [phone] Jelena David OD Unavailable Pao Joseph RN Unavailable Unavailable Esha Grimm-C Unavailable [phone] JeremíasValery damon PA-C Unavailable [phone] Rey Tay MD Unavailable Rocky Zepeda DO Unavailable Philip Dumont MD Unavailable [phone] Meredith CarreraC Unavailable [phone] Neil Kent MD Unavailable Juan Pablo Emmanuel MD Unavailable [phone] Audrey WaiteC Unavailable [phone] Valery Veronica PA-C Unavailable [phone] Herminia Hatch MD Unavailable Encounter Details Date Type Department Care Team (Late st Contact Info) Description 06/25/2021 [facility] [address] [address] [facility] [address] [place] [address] Psoriasis (Primary Dx) Social History Tobacco Use [...] Answer Date Recorded PHQ-2 Score 0 04/02/2021 [facility] - Occupational [...] in a long-term (including now)? No 08/11/2020 [place] Depression Scale Answer Date Recorded [place] [...] PM CDT Legal Sex Female 4:13 AM ENGINEER SECOND ASSISTANT Gender Identity Female 03/02/2021 5:45 PM CDT Sexual Orientation Straight 02/28/2020 12 :51 AM CDT COVID-19 Exposure Response Date Recorded In the last month, have you been in contact with someone who was confirmed or suspected to have Coronavirus / COVID-19? No / Unsure 06/26/2021 8:28 AM ENGINEER SECOND ASSISTANT documented as of this encounter Miscellaneous Notes * Telephone Encounter - Diana Desir [facility] - 06/26/2021 9:53 AM CST Discussed with PCP and verbal approval for betamethasone cream. Diana Desir, PharmD Medication Therapy Management Provider, [facility] Pager: [phone] NEER SECOND ASSISTANT documented in this encounter Plan of Treatment Upcoming Encounters Date Type Department Care Team (Late st Contact Info) Description 10/23/2024 9:30 AM CDT Office Visit [facility] [place] [address] [facility], [address] [place] [phone] [place] [address] [place], [place] [address] Johnny Penn MD [address] [place], [place] [address] documented as of this encounter Visit Diagnoses Diagnosis Psoriasis- Primary Other psoriasis documented in this encounter Additional Health Concerns Infection Onset Date Last Indicated Resolved Time Rule Out COVID-19 07/13/2021 07/13/2021 07/14/2021 3:04 PM ENGINEER SECOND ASSISTANT Rule Out COVID-19 07/18/2021 07/18/2021 07/20/2021 1:56 PM ENGINEER SECOND ASSISTANT COVID-19 07/18/2021 07/18/2021 08/08/2021 11:3 9 PM ENGINEER SECOND ASSISTANT Rule Out COVID-19 12/18/2021 12/18/2021 12/19/2021 11:34 AM CDT Rule Out COVID-19 02/24/2022 02/24/2022 02/25/2022 1:08 PM CDT Rule Out COVID-19 04/26/2022 04/26/2022 04/26/2022 6:47 AM CDT Rule Out COVID-19 05/17/2022 05/17/2022 05/17/2022 10:20 PM ENGINEER SECOND ASSISTANT Rule Out COVID-19 06/09/2022 06/09/2022 06/09/2022 9:35 AM ENGINEER SECOND ASSISTANT COVID-19 06/09/2022 06/09/2022 06/30/2022 11:4 1 PM ENGINEER SECOND ASSISTANT Rule Out COVID-19 11/10/2022 11/10/2022 11/11/2022 12:17 PM CDT Rule Out COVID-19 03/07/2023 03/07/2023 03/07/2023 1:20 PM CDT Rule Out COVID-19 12/26/2023 12/26/2023 12/26/2023 9:50 AM CDT Rule Out COVID-19 04/09/2024 04/09/2024 04/10/2024 6:48 PM CDT Assessment Noted Time PHQ-9 Depression Total Score: 2 04/02/20 10:19 AM CDT documented as of this encounter Care Teams Cement Mason Apprentice Relationship Specialty Start Date End Date Marija Edgar APRN NET MOBILE DEVELOPER PCP - General Nurse Practitioner 04/30/20 04/14/23 Esha Grimm PA-C [address] [place] [phone] PCP - General Family Medicine 05/04/23 Lita Oseguera Personal Advocate & Liaison (PAL) 02/28/20 03/27/23 Marija Edgar APRN NET MOBILE DEVELOPER Assigned PCP 06/08/20 04/29/23 Mynor Broussard MD [address] [id number] Assigned Surgical Provider 06/01/20 11/28/21 Keisha Dotson MD [address]09 [place], [place] [address] Assigned Neuroscience Provider 06/04/20 04/01/23 Galo Burrell MD Assigned Heart and Vascular Provider 10/05/20 04/02/22 Diana Desir, [facility] [address] [place], [place] 559126 Pharmacist Pharmacist 04/17/21 Rain Galaviz PA-C [address] [facility] [address] [place] [facility] [place] [address] Physician Category Planner Dermatology 04/28/21 Summer Lara MD [address] [place] [address] Assigned OBGYN Provider 05/31/21 Tavia Wyatt MD [address] [place], [place] 6[address] Dermatology 07/14/21 Johnny Murillo MD [address] [place] [address] Assigned Musculoskeletal Provider 08/30/21 03/17/22 Erica Farrell APRN NET MOBILE DEVELOPER [address] [facility] [address] [place] [address] Nurse Practitioner Cardiovascular Disease 09/09/21 Teresita Bean, [facility] [address] [place] [address] Pharmacist Pharmacist 09/24/21 09/29/21 Tavia Wyatt MD [address] [place], [place] [id number] Assigned Surgical Provider 11/29/21 05/07/22 Diana Desir, [facility] [address] [place] [address] Assigned MTM Pharmacist 01/02/22 Rich Barrett MD [address] [facility] [address] [place] [address] Physician Ophthalmology 01/21/22 Neil [place] MD 500 [place] [address] Dermatology 02/24/22 Roney Story DPM [address] [facility] [address] [place], [place] 3399[address] Assigned Musculoskeletal Provider 03/20/22 08/13/22 Erica Farrell APRN NET MOBILE DEVELOPER 1700 [place] [address] Assigned Heart and Vascular Provider 04/03/22 04/16/22 Diana Desir, [facility] [address] [place] [address] Assigned MTM Pharmacist 04/07/22 Jelena David OD [address] [facility] [place] [address] Assigned Surgical Provider 05/08/22 10/08/22 Galo Burrell MD Assigned Heart and Vascular Provider 04/17/22 06/11/22 Livan Sharif MD [address] [place] 738[address] Cardiovascular Disease 05/14/22 Livan Sharif MD [address] [place] 204375 Assigned Heart and Vascular Provider 06/12/22 07/23/22 Catherine Cm MD [address] 1832000 [place] [address] Cardiovascular Disease 07/21/22 Valery Veronica, PA-C [address] [place] [address] Physician Category Planner Dermatology 07/21/22 Catherine Cm MD [address] [address] Assigned Heart and Vascular Provider 07/24/22 11/05/22 Johnny Murillo MD [address] [place] [address] Assigned Musculoskeletal Provider 08/14/22 10/08/22 Brea Quinn APRN NET MOBILE DEVELOPER [address] [place] [address] Nurse Practitioner Dermatology 09/21/22 Brea Quinn APRN NET MOBILE DEVELOPER [address] [place] [address] Assigned Surgical Provider 10/09/22 05/01/24 [place] [address] [place] [address] Assigned Musculoskeletal Provider 10/09/22 05/01/24 Livan Sharif MD [address], [facility] [address] [place] [address] Assigned Heart and Vascular Provider 11/06/22 11/12/22 Catherine Cm MD [address] [place] [address]15 Assigned Heart and Vascular Provider 11/13/22 05/27/23 Sydnie Martinez, RN Personal Advocate & Liaison (PAL) Family Medicine 03/28/23 07/31/23 Alfonso Renteria MD [address] [facility] 200 [place] [address] Assigned Neuroscience Provider 04/02/23 Cheng Todd PA-C [address] [place] [address] Assigned PCP 04/30/23 07/15/23 Radha Lomeli APRN NET MOBILE DEVELOPER [address] [place] [address] Assigned Heart and Vascular Provider 05/28/23 Jelena David OD [facility] [place] [address] Ophthalmology 06/15/23 Pao Joseph, VJ Personal Advocate & Liaison (PAL) Nurse 08/01/23 11/07/23 Esha Grimm PA-C [address] [place] [address] Assigned PCP 07/16/23 Valery Veronica PA-C 909 [place] [address] Physician Category Planner Dermatology 09/19/23 Rey Tay MD 9 [place] [address] MD Gastroenterology 09/20/23 Rocky Zepdea DO 500 [place] [address] Physician Gastroenterology 09/20/23 Philip Dumont MD [address] [place] [address] Physician Ophthalmology 09/22/23 Meredith Carrera PA-C 9 [place] [address] Assigned Gastroenterology Provider 11/01/23 Neil [place] MD [address] [address] Dermatology 11/02/23 [place] [address] [address] [address] Neurological Surgery 12/26/23 Audrey Waite PA-C 500 [place] [address] Physician Category Planner Dermatology 02/28/24 Valery Veronica PA-C [address] [place] [address] Physician Category Planner Dermatology 04/10/24 Herminia Hatch MD [address] [place] [address] [id number] Assigned Rheumatology Provider 07/02/24 documented as of this encounter
--- OUTSIDE RECORDS SUMMARY | 2024-08-28 18:26 | XMS_ITS | Encounter Summary ---
Author Organization [place] Address [address] [place] [address] Care Team Providers Care Nurse Supervisor Name Role Phone Lita Oseguera Unavailable Unavailable Marija Edgar PREKINDERGARTEN TEACHER ELECTRONIC WARFARE OPERATOR Primary Care Provider + Chanelle Mccann PREKINDERGARTEN TEACHER CNM Unavailab le Marija Edgar APRN ELECTRONIC WARFARE OPERATOR Unavailable [phone] Mynor [place] MD Unavailable [phone] Keisha D[place] MD Unavailable [phone] Galo Burrell MD Unavailable Unavailable Diana Desir [facility] Unavailable Rain Galaviz PA-C Unavailable Summer Lara MD Unavailable [phone] Summer Lara MD Unavailable [phone] Summer Lara MD Unavailable [phone] Tavia Wyatt MD Unavailable Johnny Murillo MD Unavailable Erica Farrell PREKINDERGARTEN TEACHER ELECTRONIC WARFARE OPERATOR Unavailable Teresita Bean [facility] Unavailable Tavia Wyatt MD Unavailable DesirDiana [facility] Unavailable [phone] Rich Barrett MD Unavailable [phone] [place] MD Unavailable Roney StoryM Unavailable [phone] Erica Farrell APRN ELECTRONIC WARFARE OPERATOR Unavailable + Diana Desir [facility] Unavailable [phone] Jelena David OD Unavailable Galo Burrell MD Unavailable Unavailable Livan Sharif MD Unavailable + Livan Sharif MD Unavailable + Catherine Cm MD Unavailable + Valery VeronicaC Unavailable [phone] Catherine Cm MD Unavailable + Johnny Murillo MD Unavailable [phone] Brea Quinn PREKINDERGARTEN TEACHER ELECTRONIC WARFARE OPERATOR Unavailable [phone] Brea Quinn PREKINDERGARTEN TEACHER ELECTRONIC WARFARE OPERATOR Unavailable [phone] Jose Francisco Johnson MD Unavailable Livan Sharif MD Unavailable + Catherine Cm MD Unavailable + Sydnie Martinez RN Unavailable Unavailable Alfonso Renteria MD Unavailable [phone] Esha GrimmC Primary Care Provider Cheng Todd PA-C Unavailable [phone] Radah Lomeli APRN ELECTRONIC WARFARE OPERATOR Unavailable [phone] Jelena David OD Unavailable Jake, Pao RN Unavailable Unavailable [place], Esha M PA-C Unavailable [phone] Valery VeronicaC Unavailable Rey Tay MD Unavailable Duane Rockyanne [facility] Unavailable Philip Dumont MD Unavailable Meredith Carrera PA-C Unavailable [place] MD Unavailable Juan Pablo Emmanuel MD Unavailable [phone] Audrey Waite PA-C Unavailable Valery Veronica PA-C Unavailable Herminia Hatch MD Unavailable Encounter Details Date Type Department Care Team (Late st Contact Info) Description 04/28/2021 [facility] [address] [address] Marija Edgar APRN ELECTRONIC WARFARE OPERATOR [facility]0 [place] [address] Social History Tobacco Use Types [...] week 08/07/2020 How often do you attend up health system or zoroastrian services? More than 4 times [...] 04/02/2021 [facility] of Occupat ionar Health - Occupational Stress Questionnaire Answer Date [...] in a chcf (including now)? No 08/11/2020 [place] Depression Scale Answer Date Recorded [place] Depression Score 5 01/14/2021 Last EPDS Self Harm Result Not on file 01/14 Education Answer Date Recorded What is the highest level of school you have completed or the highest degree you have received? 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 WIRE ROPE SALES REPRESENTATIVE Gender Identity Female 03/02/2021 5:45 [...] Visit [facility] Neurology [facility] - [address], [address] [place] [address] [place] [address] [address] Johnny Penn MD [address] [place] [address] documented as of this encounter Visit Diagnoses Not on filedocumented in this encounter Additional Health Concerns Infection Onset Date Last Indicated Resolved Time Rule Out COVID-19 05/11/2021 05/11/2021 05/13/2021 10:18 AM CDT Rule Out COVID-19 07/13/2021 07/13/2021 07/14/2021 3:04 PM WIRE ROPE SALES REPRESENTATIVE Rule Out COVID-19 07/18/2021 07/18/2021 07/20/2021 1:56 PM WIRE ROPE SALES REPRESENTATIVE COVID-19 07/18/2021 07/18/2021 08/08/2021 11:3 9 PM WIRE ROPE SALES REPRESENTATIVE Rule Out COVID-19 12/18/2021 12/18/2021 12/19/2021 11:34 AM CDT Rule Out COVID-19 02/24/2022 02/24/2022 02/25/2022 1:08 PM CDT Rule Out COVID-19 04/26/2022 04/26/2022 04/26/2022 6:47 AM CDT Rule Out COVID-19 05/17/2022 05/17/2022 05/17/2022 10:20 PM WIRE ROPE SALES REPRESENTATIVE Rule Out COVID-19 06/09/2022 06/09/2022 06/09/2022 9:35 AM WIRE ROPE SALES REPRESENTATIVE COVID-19 06/09/2022 06/09/2022 06/30/2022 11:4 1 PM WIRE ROPE SALES REPRESENTATIVE Rule Out COVID-19 11/10/2022 11/10/2022 11/11/2022 12:17 PM CDT Rule Out COVID-19 03/07/2023 03/07/2023 03/07/2023 1:20 PM CDT Rule Out COVID-19 12/26/2023 12/26/2023 12/26/2023 9:50 AM CDT Rule Out COVID-19 04/09/2024 04/09/2024 04/10/2024 6:48 PM CDT Assessment Noted Time PHQ-9 Depression Total Score: 2 04/02/20 10:19 AM CDT documented as of this encounter Care Teams Nurse Supervisor Relationship Specialty Start Date End Date Marija Edgar APRN ELECTRONIC WARFARE OPERATOR PCP - General Nurse Practitioner 04/30/20 04/14/23 Esha Grimm PA-C [address] [place] [phone] PCP - General Family Medicine 05/04/23 Lita Oseguera Personal Advocate & Liaison (PAL) 02/28/20 03/27/23 Chanelle Mccann APRN [place]NAdam [address] [place] [address] 200 [place] [address] Assigned OBGYN Provider 05/02/2005/09 Marija Edgar APRN ELECTRONIC WARFARE OPERATOR Assigned PCP 06/08/20 04/29/23 Mynor [place] MD 6363 [facility] 500 [place], [place] 7710[address] Assigned Surgical Provider 06/01/20 11/28/21 Keisha [place] MD 909 [place], [place] 703685 Assigned Neuroscience Provider 06/04/20 04/01/23 Galo Burrell MD Assigned Heart and Vascular Provider 10/05/20 04/02/22 [facility] [address] [place] [address] Pharmacist Pharmacist 04/17/21 Rain Galaviz PA-C [address] [place] [address] [place] [address] Physician Administrative Support Technician Dermatology 04/28/21 Summer Lara MD [address] [place] [address] Assigned OBGYN Provider 05/10/2105/23 Summer Lara MD [address] [place] [address] Assigned OBGYN Provider 05/31/21 Summer Lara MD [address] [place] [address] [address] [place], [place] [address] Assigned OBGYN Provider 05/24/2105/30 Tavia Wyatt MD [address] [place], [place] [address] Dermatology 07/14/21 Johnny Murillo MD [address] [place] [address] Assigned Musculoskeletal Provider 08/30/21 03/17/22 Erica Farrell APRN ELECTRONIC WARFARE OPERATOR [address] [facility] [address] [place] [address] Nurse Practitioner Cardiovascular Disease 09/09/21 [address] [facility] 1440 [facility] [place] [address] Pharmacist Pharmacist 09/24/21 09/29/21 Tavia Wyatt MD [address] [place] [address] Assigned Surgical Provider 11/29/21 05/07/22 [facility] [address] [place] [address] Assigned MTM Pharmacist 01/02/22 Rich Barrett MD [address] [address] Physician Ophthalmology 01/21/22 Neil Kent MD 500 [place], [place] 3[address] Dermatology 02/24/22 Roney Story DPM [address] [facility] [address] [place] [address] Assigned Musculoskeletal Provider 03/20/22 08/13/22 Erica Farrell APRN ELECTRONIC WARFARE OPERATOR 1700 [place] [address] Assigned Heart and Vascular Provider 04/03/22 04/16/22 [facility] [address] [place] [address] Assigned MTM Pharmacist 04/07/22 Jelena David OD [address] [facility] [place] [address] Assigned Surgical Provider 05/08/22 10/08/22 Galo Burrell MD Assigned Heart and Vascular Provider 04/17/22 06/11/22 Livan Sharif MD [address], [address] [place] [address] Cardiovascular Disease 05/14/22 Livan Sharif MD [address], [address] [place] [address] Assigned Heart and Vascular Provider 06/12/22 07/23/22 Catherine Cm MD [address] [facility] [address] [place] [address] Cardiovascular Disease 07/21/22 Valery Veronica, PA-C 9[address] [place] [address] Physician Administrative Support Technician Dermatology 07/21/22 Catherine Cm MD [address] [place] [address] Assigned Heart and Vascular Provider 07/24/22 11/05/22 Johnny Murillo MD [facility] [address] [address] Assigned Musculoskeletal Provider 08/14/22 10/08/22 Brea Quinn APRN ELECTRONIC WARFARE OPERATOR 500 [facility] [address] Nurse Practitioner Dermatology 09/21/22 Brea Quinn APRN ELECTRONIC WARFARE OPERATOR [address] [place] [address] Assigned Surgical Provider 10/09/22 05/01/24 [place] [address] [place] [address] Assigned Musculoskeletal Provider 10/09/22 05/01/24 Livan Sharif MD [address] [facility] [address] [place] [address] Assigned Heart and Vascular Provider 11/06/22 11/12/22 Catherine Cm MD [address] [facility] [address] [place] [address] Assigned Heart and Vascular Provider 11/13/22 05/27/23 Sydnie Martinez RN Personal Advocate & Liaison (PAL) Family Medicine 03/28/23 07/31/23 Alfonso Renteria MD 5775 [facility] 200 [place] [address] Assigned Neuroscience Provider 04/02/23 Cheng Todd PA-C [address] [place] [address] Assigned PCP 04/30/23 07/15/23 Radha Lomeli APRN ELECTRONIC WARFARE OPERATOR [address] [place] [address] Assigned Heart and Vascular Provider 05/28/23 Jelena David OD [address] [facility] [place] [address] MD Ophthalmology 06/15/23 Pao Joseph, VJ Personal Advocate & Liaison (PAL) Nurse 08/01/23 11/07/23 Esha Grimm PA-C [address] [place] [phone] Assigned PCP 07/16/23 Valery Veronica PA-C [address] [place] [address] 951065 Physician Administrative Support Technician Dermatology 09/19/23 Rey Tay MD [address] [place] [address] 247065 Gastroenterology 09/20/23 Rocky Zepeda DO [address] [place] [address] 839785 Physician Gastroenterology 09/20/23 Philip Dumont MD [address] [place] [address] 208255 Physician Ophthalmology 09/22/23 Meredith [place] PA-C [address] [place] [address]805 Assigned Gastroenterology Provider 11/01/23 Neil [place] MD [address] [place] [address] 889880 Dermatology 11/02/23 [place] [address] [place] [address] [address] Neurological Surgery 12/26/23 Audrey Waite PA-C 500 [place] [address] Physician Administrative Support Technician Dermatology 02/28/24 Valery Veronica PA-C [id number] [place] [address] Physician Administrative Support Technician Dermatology 04/10/24 Herminia Hatch MD [facility]5 [place], [place] [address] Assigned Rheumatology Provider 07/02/24 documented as of this encounter
--- OUTSIDE RECORDS SUMMARY | 2024-08-28 18:26 | XMS_ITS | Encounter Summary ---
Author Organization [facility] Address [address] [place] [address] Care Team Providers Care Plant Controller Name Role Phone Lita Oseguera Unavailable Unavailable Marija Edgar APRN EXECUTIVE HOUSEKEEPER Primary Care Provider + Marija Edgar APRN EXECUTIVE HOUSEKEEPER Unavailable Mynor Broussard MD Unavailable [phone] Keisha Dotson MD Unavailable Galo Burrell MD Unavailable Unavailable Diana Desir [facility] Unavailable [phone] Rain Galaviz PA-C Unavailable Summer Lara MD Unavailable [phone] Tavia Wyatt MD Unavailable Johnny Murillo MD Unavailable Erica Farrell APRN EXECUTIVE HOUSEKEEPER Unavailable Teresita Bean [facility] Unavailable [phone] Tavia Wyatt MD Unavailable Diana Desir [facility] Unavailable [phone] Rich Barrett MD Unavailable [phone] Neil Kent MD Unavailable Roney Story DPM Unavailable Erica Farrell RADIOLOGIC TECH EXECUTIVE HOUSEKEEPER Unavailable Thang Diana Stanislav [facility] Unavailable Jelena David OD Unavailable Galo Burrell MD Unavailable Unavailable Livan Sharif MD Unavailable + Livan Sharif MD Unavailable + Catherine Cm MD Unavailable + Valery Veronica PA-C Unavailable [phone] Catherine Cm MD Unavailable + Johnny Murillo MD Unavailable [phone] Brea Quinn RADIOLOGIC TECH EXECUTIVE HOUSEKEEPER Unavailable [phone] Brea Quinn RADIOLOGIC TECH EXECUTIVE HOUSEKEEPER Unavailable [phone] Jose Francisco Johnson MD Unavailable Livan Sharif MD Unavailable + IsCatherine hobbs MD Unavailable + Sydnie Martinez RN Unavailable Unavailable Alfonso Renteria MD Unavailable Esha Grimm-C Primary Care Provider Cheng Todd PA-C Unavailable Radha Lomeli RADIOLOGIC TECH EXECUTIVE HOUSEKEEPER Unavailable [phone] Jelena David OD Unavailable Pao Joseph RN Unavailable Unavailable Esha Grimm-C Unavailable [phone] JeremíasValery damon PA-C Unavailable [phone] Rey Tay MD Unavailable Rocky Zepeda DO Unavailable Philip Dumont MD Unavailable [phone] Meredith CarreraC Unavailable [phone] Neil Kent MD Unavailable Juan Pablo Emmanuel MD Unavailable [phone] Audrey WaiteC Unavailable [phone] Valery VeronicaC Unavailable [phone] Herminia Hatch MD Unavailable Encounter Details Date Type Department Care Team (Late st Contact Info) Description 07/14/2021 MyC Medical Advice [address] [address] Lauren Gan, RN Social History [...] Answer Date Recorded PHQ-2 Score 0 04/02/2021 [facility] [...] health care facility (including now)? No 08/11/2020 [place] Depression Scale Answer Date Recorded [place] Depression Score 5 01/14/2021 Last EPDS Self Harm Result Not on file 01/14 Education Answer Date Recorded What is the highest level of school you have completed or the highest degree you have received? 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 HEAD TRANSFER CLERK Gender Identity Female 03/02/2021 5:45 PM CDT Sexual Orientation Straight 02/28/2020 12 :51 AM CDT COVID-19 Exposure Response Date Recorded In the last month, have you been in contact with someone who was confirmed or suspected to have Coronavirus / COVID-19? Yes 07/15/2021 12:15 PM HEAD TRANSFER CLERK documented as of this encounter Plan of Treatment Upcoming Encounters Date Type Department Care Team (Late st Contact Info) Description 10/23/2024 9:30 AM CDT Office Visit [facility] [address], [address] [place] [address] [place] [address] [place] [address] Johnny Penn MD [address] [place] [address] documented as of this encounter Visit Diagnoses Not on filedocumented in this encounter Additional Health Concerns Infection Onset Date Last Indicated Resolved Time Rule Out COVID-19 07/13/2021 07/13/2021 07/14/2021 3:04 PM HEAD TRANSFER CLERK Rule Out COVID-19 07/18/2021 07/18/2021 07/20/2021 1:56 PM HEAD TRANSFER CLERK COVID-19 07/18/2021 07/18/2021 08/08/2021 11:3 9 PM HEAD TRANSFER CLERK Rule Out COVID-19 12/18/2021 12/18/2021 12/19/2021 11:34 AM CDT Rule Out COVID-19 02/24/2022 02/24/2022 02/25/2022 1:08 PM CDT Rule Out COVID-19 04/26/2022 04/26/2022 04/26/2022 6:47 AM CDT Rule Out COVID-19 05/17/2022 05/17/2022 05/17/2022 10:20 PM HEAD TRANSFER CLERK Rule Out COVID-19 06/09/2022 06/09/2022 06/09/2022 9:35 AM HEAD TRANSFER CLERK COVID-19 06/09/2022 06/09/2022 06/30/2022 11:4 1 PM HEAD TRANSFER CLERK Rule Out COVID-19 11/10/2022 11/10/2022 11/11/2022 12:17 PM CDT Rule Out COVID-19 03/07/2023 03/07/2023 03/07/2023 1:20 PM CDT Rule Out COVID-19 12/26/2023 12/26/2023 12/26/2023 9:50 AM CDT Rule Out COVID-19 04/09/2024 04/09/2024 04/10/2024 6:48 PM CDT Assessment Noted Time PHQ-9 Depression Total Score: 2 04/02/20 21 10:19 AM CDT documented as of this encounter Care Teams Plant Controller Relationship Specialty Start Date End Date Marija Edgar APRN CNP PCP - General Nurse Practitioner 04/30/20 04/14/23 Esha Grimm PA-C [address] [place] [address] PCP - General Family Medicine 05/04/23 Lita Oseguera Personal Advocate & Liaison (PAL) 02/28/20 03/27/23 Marija Edgar APRN EXECUTIVE HOUSEKEEPER Assigned PCP 06/08/20 04/29/23 Mynor Broussard MD [address] [id number] Assigned Surgical Provider 06/01/20 11/28/21 Keisha Dotson MD [address] [place], [place] 99[address] Assigned Neuroscience Provider 06/04/20 04/01/23 Galo Burrell MD Assigned Heart and Vascular Provider 10/05/20 04/02/22 [facility] 3033 [place] [address] Pharmacist Pharmacist 04/17/21 Rain Galaviz PA-C [address] [place] [address] [address] [place] [address] Physician Degreaser Operator Dermatology 04/28/21 Summer Lara MD [address] [place] [address] 247494 Assigned OBGYN Provider 05/31/21 2 Tavia Wyatt MD [address] [place] [address] Dermatology 07/14/21 Johnny Murillo MD [address] [place] [address] Assigned Musculoskeletal Provider 08/30/21 03/17/22 Erica Farrell APRN EXECUTIVE HOUSEKEEPER [address] [facility] [address] [place] [address] Nurse Practitioner Cardiovascular Disease 09/09/21 Teresita Bean [facility] [address] [facility] [place], [place] [phone] Pharmacist Pharmacist 09/24/21 09/29/21 Tavia Wyatt MD [address] [place] [address] Assigned Surgical Provider 11/29/21 05/07/22 [facility] 3033 [place] [address] Assigned MTM Pharmacist 01/02/22 Rich Barrett MD [address] [facility] [address] [place], [place] [address] Physician Ophthalmology 01/21/22 Neil Kent MD [address] [place], [place] 362465 Dermatology 02/24/22 Roney Story DPM [address] [facility] [address] [place] [address] Assigned Musculoskeletal Provider 03/20/22 08/13/22 Erica Farrell APRN EXECUTIVE HOUSEKEEPER 1700 [place] [address] Assigned Heart and Vascular Provider 04/03/22 04/16/22 [facility] 3033 [place] [address] Assigned MTM Pharmacist 04/07/22 Jelena David OD [address] [facility] [place] [address] Assigned Surgical Provider 05/08/22 10/08/22 Galo Burrell MD Assigned Heart and Vascular Provider 04/17/22 06/11/22 Livan Sharif MD [address] [place] [address] Cardiovascular Disease 05/14/22 Livan Sharif MD [address] [place] [address] Assigned Heart and Vascular Provider 06/12/22 07/23/22 Catherine Cm MD [address] [place] 394825 Cardiovascular Disease 07/21/22 Valery Veronica PA-C 909 [place] [address] Physician Degreaser Operator Dermatology 07/21/22 Catherine Cm MD [address] [place] [address] [place] [address] Assigned Heart and Vascular Provider 07/24/22 11/05/22 Johnny Murillo MD [address] [place] [address] 843794 Assigned Musculoskeletal Provider 08/14/22 10/08/22 Brea Quinn APRN EXECUTIVE HOUSEKEEPER [address] [place] [address] 919205 Nurse Practitioner Dermatology 09/21/22 Brea Quinn APRN EXECUTIVE HOUSEKEEPER [address] [place] [address] [facility] [address] Assigned Surgical Provider 10/09/22 05/01/24 [place] [address] [place] [address] Assigned Musculoskeletal Provider 10/09/22 05/01/24 Livan Sharif MD [address] [place] [address] [place] [address] Assigned Heart and Vascular Provider 11/06/22 11/12/22 Catherine Cm MD [address] [place] [address] [place] [address] Assigned Heart and Vascular Provider 11/13/22 05/27/23 Sydnie Martinez RN Personal Advocate & Liaison (PAL) Family Medicine 03/28/23 07/31/23 Alfonso Renteria MD [address] [facility] [address] [place] [address] Assigned Neuroscience Provider 04/02/23 Cheng Todd PA-C [address] [place] [address] [id number] Assigned PCP 04/30/23 07/15/23 Radha Lomeli APRN EXECUTIVE HOUSEKEEPER [address] [facility] [address] [place], [place] 08[address] Assigned Heart and Vascular Provider 05/28/23 Jelena David OD [address] [facility] [address] [place] [phone] Ophthalmology 06/15/23 Pao Joseph, VJ Personal Advocate & Liaison (PAL) Nurse 08/01/23 11/07/23 Esha Grimm PA-C [address] [place] [address] Assigned PCP 07/16/23 Valery Veronica PA-C [address] [place] [address] 995745 Physician Degreaser Operator Dermatology 09/19/23 Rey Tay MD [address] [place] [address] 091225 Gastroenterology 09/20/23 Rocky Zepeda DO [address] [place] [address] [id number] Physician Gastroenterology 09/20/23 Philip Dumont MD 516 [place] [address] Physician Ophthalmology 09/22/23 Meredith Carrera PA-C [address] [place] [address] 022075 Assigned Gastroenterology Provider 11/01/23 Neil Kent MD [address] 979520 MD Dermatology 11/02/23 [place] [address] 509397 Neurological Surgery 12/26/23 Audrey Waite PA-C 500 [place], [place] 9307[address] Physician Degreaser Operator Dermatology 02/28/24 Valery Veronica PA-C [address] [place] [address] Physician Degreaser Operator Dermatology 04/10/24 Herminia Hatch MD 1875 [place] [address] Assigned Rheumatology Provider 07/02/24 documented as of this encounter
--- OUTSIDE RECORDS SUMMARY | 2024-08-28 18:26 | XMS_ITS | Encounter Summary ---
Author Organization [facility] Address [address] [place] [address] Care Team Providers Care Recycling Manager Name Role Phone Lita Oseguera Unavailable Unavailable Marija Edgar APRN STEEL HANDLER Primary Care Provider + Marija Edgar APRN STEEL HANDLER Unavailable Mynor Broussard MD Unavailable [phone] Keisha Dotson MD Unavailable Galo Burrell MD Unavailable Unavailable Diana Desir [facility] Unavailable Rain Galaviz PA-C Unavailable Summer Lara MD Unavailable [phone] Tavia Wyatt MD Unavailable Johnny Murillo MD Unavailable Erica Farrell APRN STEEL HANDLER Unavailable Teresita Bean [facility] Unavailable Tavia Wyatt MD Unavailable Diana Desir [facility] Unavailable Rich Barrett MD Unavailable [phone] Neil Kent MD Unavailable Roney Story DPM Unavailable Erica Farrell COMPUTER SYSTEMS MANAGER STEEL HANDLER Unavailable Thang Diana Stanislav [facility] Unavailable Jelena David OD Unavailable [phone] Galo Burrell MD Unavailable Unavailable Livan Sharif MD Unavailable + Livan Sharif MD Unavailable + Catherine Cm MD Unavailable + Valery Veronica PA-C Unavailable [phone] Catherine Cm MD Unavailable + Johnny Murillo MD Unavailable [phone] Brea Quinn COMPUTER SYSTEMS MANAGER STEEL HANDLER Unavailable [phone] Brea Quinn COMPUTER SYSTEMS MANAGER STEEL HANDLER Unavailable [phone] Jose Francisco Johnson MD Unavailable Livan Sharif MD Unavailable + IsCatherine hobbs MD Unavailable + Sydnie Martinez RN Unavailable Unavailable Alfonso Renteria MD Unavailable Esha Grimm-C Primary Care Provider Cheng Todd PA-C Unavailable Radha Lomeli COMPUTER SYSTEMS MANAGER STEEL HANDLER Unavailable [phone] Jelena David OD Unavailable Pao Joseph RN Unavailable Unavailable Esha Grimm-C Unavailable [phone] JeremíasValery damon PA-C Unavailable [phone] Rey Tay MD Unavailable Rocky Zepeda DO Unavailable Philip Dumont MD Unavailable [phone] Meredith CarreraC Unavailable [phone] Neil Kent MD Unavailable Juan Pablo Emmanuel MD Unavailable Audrey WaiteC Unavailable [phone] Valery Veronica PA-C Unavailable [phone] Herminia Hatch MD Unavailable Encounter Details Date Type Department Care Team (Late st Contact Info) Description 06/03/2021 [facility] [address] [address] [facility] [address] [place] [address] Social History Tobacco Use Types Packs/Day Years [...] you attend chur ch or confucianism services? More than 4 times [...] Answer Date Recorded PHQ-2 Score 0 04/02/2021 [facility] [...] in a longterm (including now)? No 08/11/2020 [place] Depression Scale Answer Date Recorded [place] Depression Score 5 01/14/2021 Last EPDS Self Harm Result Not on file 01/14 Education Answer Date Recorded What is the highest level of school you have completed or the highest degree you have received? 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 LUMBER BEARER Gender Identity Female 03/02/2021 5:45 PM CDT [...] Visit [facility] [place] [address] [place] [address], [address] [place] [address] [place] [address] [place] [address] Johnny Penn MD [address] [place] [address] documented as of this encounter Visit Diagnoses Not on filedocumented in this encounter Additional Health Concerns Infection Onset Date Last Indicated Resolved Time Rule Out COVID-19 07/13/2021 07/13/2021 07/14/2021 3:04 PM LUMBER BEARER Rule Out COVID-19 07/18/2021 07/18/2021 07/20/2021 1:56 PM LUMBER BEARER COVID-19 07/18/2021 07/18/2021 08/08/2021 11:3 9 PM LUMBER BEARER Rule Out COVID-19 12/18/2021 12/18/2021 12/19/2021 11:34 AM CDT Rule Out COVID-19 02/24/2022 02/24/2022 02/25/2022 1:08 PM CDT Rule Out COVID-19 04/26/2022 04/26/2022 04/26/2022 6:47 AM CDT Rule Out COVID-19 05/17/2022 05/17/2022 05/17/2022 10:20 PM LUMBER BEARER Rule Out COVID-19 06/09/2022 06/09/2022 06/09/2022 9:35 AM LUMBER BEARER COVID-19 06/09/2022 06/09/2022 06/30/2022 11:4 1 PM LUMBER BEARER Rule Out COVID-19 11/10/2022 11/10/2022 11/11/2022 12:17 PM CDT Rule Out COVID-19 03/07/2023 03/07/2023 03/07/2023 1:20 PM CDT Rule Out COVID-19 12/26/2023 12/26/2023 12/26/2023 9:50 AM CDT Rule Out COVID-19 04/09/2024 04/09/2024 04/10/2024 6:48 PM CDT Assessment Noted Time PHQ-9 Depression Total Score: 2 04/02/20 10:19 AM CDT documented as of this encounter Care Teams Recycling Manager Relationship Specialty Start Date End Date Marija Edgar APRN STEEL HANDLER PCP - General Nurse Practitioner 04/30/20 04/14/23 Esha Grimm PA-C [address] [place] [address] PCP - General Family Medicine 05/04/23 Lita Oseguera Personal Advocate & Liaison (PAL) 02/28/20 03/27/23 Marija Edgar APRN STEEL HANDLER Assigned PCP 06/08/20 04/29/23 Mynor Broussard MD 6363 [facility] 500 [place] [address] Assigned Surgical Provider 06/01/20 11/28/21 Keisha Dotson MD 909 [place], [place] 308395 Assigned Neuroscience Provider 06/04/20 04/01/23 Galo Burrell MD Assigned Heart and Vascular Provider 10/05/20 04/02/22 Diana Desir, [facility] [address] [place] [address] Pharmacist Pharmacist 04/17/21 Rain Galaviz PA-C [address] [place] [address] [address] [facility] [place] [address] Physician Classification Case Manager Dermatology 04/28/21 Summer Lara MD [address] [place] [address] 526594 Assigned OBGYN Provider 05/31/21 2 Tavia Wyatt MD [address] [place], [place] 5[address] Dermatology 07/14/21 Johnny Murillo MD [address] [place] [address] Assigned Musculoskeletal Provider 08/30/21 03/17/22 Erica Farrell APRN STEEL HANDLER 6405 [facility] [address] [place], [place] 79[address] Nurse Practitioner Cardiovascular Disease 09/09/21 Teresita Bean, [facility] [address] [facility] [address] [place] [phone] Pharmacist Pharmacist 09/24/21 09/29/21 Tavia Wyatt MD [address] [place], [place] 859480 Assigned Surgical Provider 11/29/21 05/07/22 Diana Desir, [facility] [address] [place] [address] Assigned MTM Pharmacist 01/02/22 Rich Barrett MD 516 [facility] 9[address] [place], [place] 25[address] Physician Ophthalmology 01/21/22 Neil Kent MD 500 [place], [place] 167145 Dermatology 02/24/22 Roney Story DPM [address] [facility] [address] [place] [address] Assigned Musculoskeletal Provider 03/20/22 08/13/22 Erica Farrell APRN STEEL HANDLER 1700 [place] [address] Assigned Heart and Vascular Provider 04/03/22 04/16/22 Diana Desir, [facility] [address] [place], [place] 8[address] Assigned MTM Pharmacist 04/07/22 Jelena David OD [address] [facility] [place] [address] Assigned Surgical Provider 05/08/22 10/08/22 Galo Burrell MD Assigned Heart and Vascular Provider 04/17/22 06/11/22 Livan Sharif MD [address] [place] [address] Cardiovascular Disease 05/14/22 Livan Sharif MD [address], [address] [place] [address] Assigned Heart and Vascular Provider 06/12/22 07/23/22 Catherine Cm MD [address] [place] [address]275 Cardiovascular Disease 07/21/22 Valery Veronica, PAUcheC 909 [place] [address] Physician Classification Case Manager Dermatology 07/21/22 Catherine Cm MD [address] [place] [address] Assigned Heart and Vascular Provider 07/24/22 11/05/22 Johnny Murillo MD [address] [address] Assigned Musculoskeletal Provider 08/14/22 10/08/22 Brea Quinn APRN STEEL HANDLER [address] [place] [address] 904215 Nurse Practitioner Dermatology 09/21/22 Brea Quinn APRN STEEL HANDLER [address] [place] [address] [place] 973142 Assigned Surgical Provider 10/09/22 05/01/24 [place] [address] [place] [address] [address] Assigned Musculoskeletal Provider 10/09/22 05/01/24 Livan Sharif MD [address] [place] [address] Assigned Heart and Vascular Provider 11/06/22 11/12/22 Catherine Cm MD [address] [place] [address] Assigned Heart and Vascular Provider 11/13/22 05/27/23 Sydnie Martinez, VJ Personal Advocate & Liaison (PAL) Family Medicine 03/28/23 07/31/23 Alfonso Renteria MD 5775 [facility] [address] [place] [address] Assigned Neuroscience Provider 04/02/23 Cheng Todd PA-C [address] [place] [address] Assigned PCP 04/30/23 07/15/23 Radha Lomeli APRN STEEL HANDLER 6405 [facility] [address] [place] [address] Assigned Heart and Vascular Provider 05/28/23 Jelena David OD [address] [facility] [place] [address] Ophthalmology 06/15/23 Pao Joseph, VJ Personal Advocate & Liaison (PAL) Nurse 08/01/23 11/07/23 Esha Grimm PA-C [address] [place] [address] Assigned PCP 07/16/23 Valery Veronica PA-C 9 [place], [place] 8[address]255 Physician Classification Case Manager Dermatology 09/19/23 Rey Tay MD 9 [place], [place] 430395 Gastroenterology 09/20/23 Rocky Zepeda DO 500 [place] [address] Physician Gastroenterology 09/20/23 Philip Dumont MD 516 [place] [address] Physician Ophthalmology 09/22/23 Meredith Carrera PA-C 909 [place] [address] Assigned Gastroenterology Provider 11/01/23 Neil Kent MD [address] [address] MD Dermatology 11/02/23 [place] [address] [address] Neurological Surgery 12/26/23 Audrey Waite PA-C 500 [place] [address] Physician Classification Case Manager Dermatology 02/28/24 Valery Veronica PA-C 295283 [address] [place] [address] Physician Classification Case Manager Dermatology 04/10/24 Herminia Hatch MD [facility]5 [place], [place] [address] Assigned Rheumatology Provider 07/02/24 documented as of this encounter
--- OUTSIDE RECORDS SUMMARY | 2024-08-28 18:26 | XMS_ITS | Encounter Summary ---
Author Organization [facility] Address [address] [place] [address] Care Team Providers Care Staking Engineer Name Role Phone Lita Oseguera Unavailable Unavailable Marija Edgar APRN IRON WORKER FOREMAN Primary Care Provider + Marija Edgar APRN IRON WORKER FOREMAN Unavailable Mynor Broussard MD Unavailable [phone] Keisha Dotson MD Unavailable Galo Burrell MD Unavailable Unavailable Diana Desir [facility] Unavailable [phone] Rain Galaviz PA-C Unavailable Summer Lara MD Unavailable [phone] Tavia Wyatt MD Unavailable Johnny Murillo MD Unavailable Erica Farrell APRN IRON WORKER FOREMAN Unavailable Teresita Bean [facility] Unavailable Tavia Wyatt MD Unavailable Diana Desir [facility] Unavailable Rich Barrett MD Unavailable [phone] Neil Kent MD Unavailable Roney Story DPM Unavailable Erica Farrell COMMUNITY ASSOCIATION MANAGER IRON WORKER FOREMAN Unavailable Thang Diana Stanislav [facility] Unavailable Jelena David OD Unavailable Galo Burrell MD Unavailable Unavailable Livan Sharif MD Unavailable + Livan Sharif MD Unavailable + Catherine Cm MD Unavailable + Valery Veronica PA-C Unavailable [phone] Catherine Cm MD Unavailable + Johnny Murillo MD Unavailable [phone] Brea Quinn COMMUNITY ASSOCIATION MANAGER IRON WORKER FOREMAN Unavailable [phone] Brea Quinn COMMUNITY ASSOCIATION MANAGER IRON WORKER FOREMAN Unavailable [phone] Jose Francisco Johnson MD Unavailable Livan Sharif MD Unavailable + IsCatherine hobbs MD Unavailable + Sydnie Martinez RN Unavailable Unavailable Alfonso Renteria MD Unavailable Esha Grimm-C Primary Care Provider Cheng Todd PA-C Unavailable Radha Lomeli COMMUNITY ASSOCIATION MANAGER IRON WORKER FOREMAN Unavailable [phone] Jelena David OD Unavailable [phone] Pao Joseph RN Unavailable Unavailable Esha Grimm-C Unavailable [phone] JeremíasValery damon PA-C Unavailable [phone] Rey Tay MD Unavailable Rocky Zepeda DO Unavailable Philip Dumont MD Unavailable [phone] Meredith CarreraC Unavailable [phone] Neil Kent MD Unavailable Juan Pablo Emmanuel MD Unavailable [phone] Audrey WaiteC Unavailable [phone] Valery Veronica PA-C Unavailable [phone] Herminia Hatch MD Unavailable Encounter Details Date Type Department Care Team (Late st Contact Info) Description 06/01/2021 [facility] [address] [address] [facility] [address] [place] [address] Social History Tobacco Use Types Packs/Day Years [...] you attend chur ch or orthodox services? More than 4 times per year [...] Answer Date Recorded PHQ-2 Score 0 04/02/2021 [facility] [...] in a mcfp (including now)? No 08/11/2020 [place] Depression Scale Answer Date Recorded [place] Depression Score 5 01/14/2021 Last EPDS Self Harm Result Not on file 01/14 Education Answer Date Recorded What is the highest level of school you have completed or the highest degree you have received? 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 BOOM WORKER Gender Identity Female 03/02/2021 5:45 PM CDT Sexual Orientation Straight 02/28/2020 12 :51 AM CDT COVID-19 Exposure Response Date Recorded In the last month, have you been in contact with someone who was confirmed or suspected to have Coronavirus / COVID-19? No / Unsure 05/11/2021 4:19 PM CDT documented as of this encounter Miscellaneous Notes * Telephone Encounter - Diana Desir [facility] - 06/01/2021 3:43 PM CST Called patient and reassured 50 mg dose increase in sertraline is typical and okay to do. She will closely monitor changes in mental health over next couple weeks. Answered all questions. Diana Desir, PharmD Medication Therapy Management Provider, [facility] Pager: [phone] WORKER documented in this encounter Plan of Treatment Upcoming Encounters Date Type Department Care Team (Late st Contact Info) Description 10/23/2024 9:30 AM CDT Office Visit [facility] Neurology [facility] [address] [facility] [address], [address] [place] [address] [place] [address] [place], [place] [address] Johnny Penn MD [address], [place] [id number] documented as of this encounter Visit Diagnoses Not on filedocumented in this encounter Additional Health Concerns Infection Onset Date Last Indicated Resolved Time Rule Out COVID-19 07/13/2021 07/13/2021 07/14/2021 3:04 PM BOOM WORKER Rule Out COVID-19 07/18/2021 07/18/2021 07/20/2021 1:56 PM BOOM WORKER COVID-19 07/18/2021 07/18/2021 08/08/2021 11:3 9 PM BOOM WORKER Rule Out COVID-19 12/18/2021 12/18/2021 12/19/2021 11:34 AM CDT Rule Out COVID-19 02/24/2022 02/24/2022 02/25/2022 1:08 PM CDT Rule Out COVID-19 04/26/2022 04/26/2022 04/26/2022 6:47 AM CDT Rule Out COVID-19 05/17/2022 05/17/2022 05/17/2022 10:20 PM BOOM WORKER Rule Out COVID-19 06/09/2022 06/09/2022 06/09/2022 9:35 AM BOOM WORKER COVID-19 06/09/2022 06/09/2022 06/30/2022 11:4 1 PM BOOM WORKER Rule Out COVID-19 11/10/2022 11/10/2022 11/11/2022 12:17 PM CDT Rule Out COVID-19 03/07/2023 03/07/2023 03/07/2023 1:20 PM CDT Rule Out COVID-19 12/26/2023 12/26/2023 12/26/2023 9:50 AM CDT Rule Out COVID-19 04/09/2024 04/09/2024 04/10/2024 6:48 PM CDT Assessment Noted Time PHQ-9 Depression Total Score: 2 04/02/20 10:19 AM CDT documented as of this encounter Care Teams Staking Engineer Relationship Specialty Start Date End Date Marija Edgar APRN IRON WORKER FOREMAN PCP - General Nurse Practitioner 04/30/20 04/14/23 Esha Grimm PA-C [address] [place] [address] PCP - General Family Medicine 05/04/23 Lita Oseguera Personal Advocate & Liaison (PAL) 02/28/20 03/27/23 Marija Edgar APRN IRON WORKER FOREMAN Assigned PCP 06/08/20 04/29/23 Mynor Broussard MD [address] [address] Assigned Surgical Provider 06/01/20 11/28/21 Keisha Dotson MD 909 [place] [address] Assigned Neuroscience Provider 06/04/20 04/01/23 Galo Burrell MD Assigned Heart and Vascular Provider 10/05/20 04/02/22 Diana Desir, [facility] [address] [place], [place] [phone] Pharmacist Pharmacist 04/17/21 Rain Galaviz PA-C [address] [place] [address] [place] [address] Physician Vocational Education Teacher Dermatology 04/28/21 Summer Lara MD [address] [place] [address] 561324 Assigned OBGYN Provider 05/31/21 Tavia Wyatt MD [address] [place] [address] 017574 Dermatology 07/14/21 Johnny Murillo MD [address] [place], [place] 3033[address] Assigned Musculoskeletal Provider 08/30/21 03/17/22 Erica Farrell APRN IRON WORKER FOREMAN [address] [facility] [address] [place] [address] Nurse Practitioner Cardiovascular Disease 09/09/21 Teresita Bean [facility] [address] [place] [address] Pharmacist Pharmacist 09/24/21 09/29/21 Tavia Wyatt MD [address] [place], [place] [phone] Assigned Surgical Provider 11/29/21 05/07/22 Diana Desir, [facility] [address] [place] [address] Assigned MTM Pharmacist 01/02/22 Rich Barrett MD [address] [phone] Physician Ophthalmology 01/21/22 Neil Kent MD [address] [place], [place] 479825 Dermatology 02/24/22 Roney Story DPM [address] [facility] [address] [place], [place] 3880[address] Assigned Musculoskeletal Provider 03/20/22 08/13/22 Erica Farrell APRN IRON WORKER FOREMAN [address] [place] [address] Assigned Heart and Vascular Provider 04/03/22 04/16/22 Diana Desir, [facility] [address] [place] [address] Assigned MTM Pharmacist 04/07/22 Jelena David OD [address] [facility] [place] [address] Assigned Surgical Provider 05/08/22 10/08/22 Galo Burrell MD Assigned Heart and Vascular Provider 04/17/22 06/11/22 Livan Sharif MD [address] [facility] [address] [place] [address] Cardiovascular Disease 05/14/22 Livan Sharif MD [address], [facility] [address] [place] [address] Assigned Heart and Vascular Provider 06/12/22 07/23/22 Catherine Cm MD [address] [place] [address] Cardiovascular Disease 07/21/22 Valery Veronica, PA-C [address] [place] [address] Physician Vocational Education Teacher Dermatology 07/21/22 Catherine Cm MD [address] [place] [address] Assigned Heart and Vascular Provider 07/24/22 11/05/22 Johnny Murillo MD [address] 601424 Assigned Musculoskeletal Provider 08/14/22 10/08/22 Brea Quinn APRN IRON WORKER FOREMAN [address] [place] [address] 562625 Nurse Practitioner Dermatology 09/21/22 Brea Quinn APRN IRON WORKER FOREMAN [address] [place] [address] [place] 803172 Assigned Surgical Provider 10/09/22 05/01/24 [place] [address] [place] [address] 133927 Assigned Musculoskeletal Provider 10/09/22 05/01/24 Livan Sharif MD [address], [facility] [address] [place] 444375 Assigned Heart and Vascular Provider 11/06/22 11/12/22 Catherine Cm MD [address] [place] [address] Assigned Heart and Vascular Provider 11/13/22 05/27/23 Sydnie Martinez, RN Personal Advocate & Liaison (PAL) Family Medicine 03/28/23 07/31/23 Alfonso Renteria MD [address] [facility] 200 [place] [address] Assigned Neuroscience Provider 04/02/23 Cheng Todd PA-C [address] [place] [address] [id number] Assigned PCP 04/30/23 07/15/23 Radha Lomeli APRN IRON WORKER FOREMAN [address] [place] [address] Assigned Heart and Vascular Provider 05/28/23 Jelena David OD [address] [facility] [place] [address] Ophthalmology 06/15/23 Pao Joseph, VJ Personal Advocate & Liaison (PAL) Nurse 08/01/23 11/07/23 Esha Grimm PAUcheC [address] [place] [address] Assigned PCP 07/16/23 Valery Veronica PA-C [address] [place], [place] 211625 Physician Vocational Education Teacher Dermatology 09/19/23 Rey Tay MD 9 [place] [address] MD Gastroenterology 09/20/23 Rocky Zepeda DO 500 [place], [place] 6[address] Physician Gastroenterology 09/20/23 Philip Dumont MD [address] [place] [address] 252025 Physician Ophthalmology 09/22/23 Meredith Carrera PA-C [address] [place], [place] 819395 Assigned Gastroenterology Provider 11/01/23 Neil Kent MD [address] [address] Dermatology 11/02/23 [place] [address] [facility] [place] [address] Neurological Surgery 12/26/23 Audrey Waite PA-C [address] [place] [address] Physician Vocational Education Teacher Dermatology 02/28/24 Valery Veronica PA-C [address] [place] [address] Physician Vocational Education Teacher Dermatology 04/10/24 Herminia Hatch MD [address] [place] [address] Assigned Rheumatology Provider 07/02/24 documented as of this encounter
--- OUTSIDE RECORDS SUMMARY | 2024-08-28 18:26 | XMS_ITS | Encounter Summary ---
Author Organization [facility] Address [address] [place] [address] Care Team Providers Care Ob Tech Name Role Phone Lita Oseguera Unavailable Unavailable Marija Edgar APRN ORTHOPEDIC SURGEON Primary Care Provider + Marija Edgar APRN ORTHOPEDIC SURGEON Unavailable [phone] Keisha Dotson MD Unavailable [phone] Diana Desir [facility] Unavailable Rain Galaviz PA-C Unavailable Tavia Wyatt MD Unavailable [phone] Erica Farrell APRN ORTHOPEDIC SURGEON Unavailable Rich Barrett MD Unavailable [phone] Neil Kent MD Unavailable Diana Desir [facility] Unavailable Livan Sharif MD Unavailable Catherine Cm MD Unavailable + Valery Veronica PA-C Unavailable [phone] Catherine Cm MD Unavailable + Brea Quinn SYSTEMS TECHNICIAN ORTHOPEDIC SURGEON Unavailable Brea Quinn SYSTEMS TECHNICIAN ORTHOPEDIC SURGEON Unavailable Jose Francisco Johnson MD Unavailable Livan Sharif MD Unavailable Catherine Cm MD Unavailable + Sydnie Martinez RN Unavailable Unavailable Alfonso Renteria MD Unavailable [phone] Esha Grimm PA-C Primary Care Provider Cheng Todd PA-C Unavailable Radha Lomeli SYSTEMS TECHNICIAN ORTHOPEDIC SURGEON Unavailable Jelena David OD Unavailable Pao Joseph RN Unavailable Unavailable Esha Grimm PA-C Unavailable [phone] Valery Veronica PA-C Unavailable [phone] Rey Tay MD Unavailable Rocky Zepeda DO Unavailable Philip Dumont MD Unavailable Meredith Carrera PA-C Unavailable [phone] Neil Kent MD Unavailable Juan Pablo Emmanuel MD Unavailable Audrey Waite PA-C Unavailable [phone] JeremíasValery damon PA-C Unavailable Herminia Hatch MD Unavailable Reason for Visit * Reason Onset Date Comments Alejandrohart Communication 10/27/2022 Encounter Details Date Type Department Care Team (Late st Contact Info) Description 10/27/2022 [facility] [address] [place] [address] Brea Quinn, SYSTEMS TECHNICIAN ORTHOPEDIC SURGEON [address] [facility] [place] [address] Alejandrohart Communication (/) Social History Tobacco Use [...] How often do you attend baptism or jewish serv ices? Never 09/22/2021 Do [...] in a residential (including now)? No 09/22/2021 [place] Depression Scale Answer Date Recorded [place] Depression Score 5 01/14/2021 Last EPDS Self Harm Result Not on file 01/14 Education Answer Date Recorded What is the highest level of school you have completed or the highest degree you have received? 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 CAPACITY ANALYST Gender Identity Female 03/02/2021 5:45 PM [...] and advise. Letha Driver RN [facility] Gloria Alvarenga [phone] documented in this encounter Plan of Treatment Upcoming Encounters Date Type Department Care Team (Late st Contact Info) Description 10/23/2024 9:30 AM CDT Office Visit [facility] Neurology [address], [address] [place] [address] [place] [address] [address] [place] [id number] Johnny Penn MD [address] [facility] [place] [address] documented as of this encounter Visit Diagnoses [...] documented as of this encounter Care Teams Ob Tech Relationship Specialty Start Date End Date Marija Edgar APRN ORTHOPEDIC SURGEON PCP - General Nurse Practitioner 04/30/20 04/14/23 Esha Grimm PA-C [address] [place] [address] PCP - General Family Medicine 05/04/23 Lita Oseguera Personal Advocate & Liaison (PAL) 02/28/20 03/27/23 Marija Edgar APRN ORTHOPEDIC SURGEON Assigned PCP 06/08/20 04/29/23 Keisha Dotson MD 9 [place], [place] 507555 Assigned Neuroscience Provider 06/04/20 04/01/23 [facility] 3033 [place] [address] Pharmacist Pharmacist 04/17/21 Rain Galaviz PA-C [address] [place] [address] [address] [place] [address] Physician Dry Box Tender Dermatology 04/28/21 Tavia Wyatt MD [address] [place] [address] [address] [place] [address] Dermatology 07/14/21 Erica Farrell APRN [facility] [address] [place], [place] [address] Nurse Practitioner Cardiovascular Disease 09/09/21 Rich Barrett MD [address] [place] [address] 946395 Physician Ophthalmology 01/21/22 Neil Kent MD [address] [place] [address]505 Dermatology 02/24/22 [facility] [address] [place] [address] Assigned [place] Pharmacist 04/07/22 Livan Sharif MD [address] [facility] [place] [address] Cardiovascular Disease 05/14/22 Catherine Cm MD [address] [address] Cardiovascular Disease 07/21/22 Valery Veronica, PA-C [address] [place] [address] 678405 Physician Dry Box Tender Dermatology 07/21/22 Catherine Cm MD [address] [facility] [place] [address] Assigned Heart and Vascular Provider 07/24/22 11/05/22 Brea Quinn APRN ORTHOPEDIC SURGEON 500 [place] [address] Nurse Practitioner Dermatology 09/21/22 Brea Quinn APRN ORTHOPEDIC SURGEON 6401 [place] [address] Assigned Surgical Provider 10/09/22 05/01/24 [place] [address] [facility] [address] [place] [address] Assigned Musculoskeletal Provider 10/09/22 05/01/24 Livan Sharif MD [address], [facility] [address] [place] [address] Assigned Heart and Vascular Provider 11/06/22 11/12/22 Catherine Cm MD 6[address] [facility] S [facility] [address] [place] [address] Assigned Heart and Vascular Provider 11/13/22 05/27/23 Sydnie Martinez RN Personal Advocate & Liaison (PAL) Family Medicine 03/28/23 07/31/23 Alfonso Renteria MD [address] [facility] 200 [place], [place] 320786 Assigned Neuroscience Provider 04/02/23 Cheng Todd PA-C [address] [place] [address] Assigned PCP 04/30/23 07/15/23 Radha Lomeli APRN ORTHOPEDIC SURGEON [address] [facility] [address] [place] [address] Assigned Heart and Vascular Provider 05/28/23 Jelena David OD [address] [facility] [place] [address] MD Ophthalmology 06/15/23 Pao Joseph, VJ Personal Advocate & Liaison (PAL) Nurse 08/01/23 11/07/23 Esha Grimm PA-C [address] [place] [phone] Assigned PCP 07/16/23 Valery Veronica PA-C [address] [place] [address] Physician Dry Box Tender Dermatology 09/19/23 Rey Tay MD [address] [place] [address]105 Gastroenterology 09/20/23 Rocky Zepeda DO [address] [place] [address] 989455 Physician Gastroenterology 09/20/23 Philip Dumont MD [address] [place] [address] 232755 Physician Ophthalmology 09/22/23 Meredith Carrera PA-C [address] [place] [address] 886455 Assigned Gastroenterology Provider 11/01/23 Neil Kent MD [address] [address] Dermatology 11/02/23 [place] [address] 552[address] Neurological Surgery 12/26/23 Audrey Waite PA-C 500 [place] [address] Physician Dry Box Tender Dermatology 02/28/24 Valery Veronica PA-C 759473 [address] [address] Physician Dry Box Tender Dermatology 04/10/24 Herminia Hatch MD [facility]5 [place], [place] [address] Assigned Rheumatology Provider 07/02/24 documented as of this encounter
--- OUTSIDE RECORDS SUMMARY | 2024-08-28 18:26 | XMS_ITS | Encounter Summary ---
Author Organization [place] [facility] Address [address] [place] [address] Care Team Providers Care Dietetic Tech Name Role Phone Lita Oseguera Unavailable Unavailable Marija Edgar APRN BIRD SITTER Primary Care Provider + Marija Edgar APRN BIRD SITTER Unavailable [phone] Keisha Dotson MD Unavailable [phone] Diana Desir [facility] Unavailable [phone] Rain Galaviz PA-C Unavailable Tavia Wyatt MD Unavailable Erica Farrell APRN BIRD SITTER Unavailable Rich Barrett MD Unavailable [phone] Neil Kent MD Unavailable Diana Desir [facility] Unavailable [phone] Livan Sharif MD Unavailable Catherine Cm MD Unavailable + Valery Veronica PA-C Unavailable [phone] Brea Quinn [employer]ILER PLANT WORKER BIRD SITTER Unavailable [phone] Brea Quinn [employer]ER PLANT WORKER BIRD SITTER Unavailable Jose Francisco Johnson MD Unavailable Livan Sharif MD Unavailable Catherine Cm MD Unavailable + Sydnie Martinez RN Unavailable Unavailable Alfonso Renteria MD Unavailable [phone] Esha Grimm PA-C Primary Care Provider [phone] Cheng Todd PA-C Unavailable Radha Lomeli APRN BIRD SITTER Unavailable Jelena David OD Unavailable Pao Joseph RN Unavailable Unavailable Esha Grimm PA-C Unavailable [phone] Valery Veronica PA-C Unavailable Rey Tay MD Unavailable Rocky Zepeda DO Unavailable Philip Dumont MD Unavailable [phone] Meredith Carrera PA-C Unavailable Neil Kent MD Unavailable Juan Pablo Emmanuel MD Unavailable Audrey Waite PA-C Unavailable [phone] JeremíasValery damon PA-C Unavailable [phone] Herminia Hatch MD Unavailable Encounter Details Date Type Department Care Team (Late st Contact Info) Description 11/10/2022 MyC Medical Advice [facility] [address] [place] [address] Lauren Claudio PA-C [address] [place] [address] Social History Tobacco Use Types [...] How often do you attend baptist or mormonism serv ices? Never 09/22/2021 Do [...] Answer Date Recorded PHQ-2 Score 1 10/11/2022 [facility] [...] in a chcf (including now)? No 09/22/2021 Evangeline Depression Scale Answer Date Recorded Evangeline Depression Score 5 01/14/2021 Last EPDS Self Harm Result Not on file 01/14 Education Answer Date Recorded What is the highest level of school you have completed or the highest degree you have received? 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 STUDENT AMBASSADOR Gender Identity Female 03/02/2021 5:45 PM CDT [...] [facility] [address] [place] [address], [address] [place] [address] [place] [address] [address] Johnny Penn MD [address] [facility] [place] [address] documented as of this encounter Visit [...] documented as of this encounter Care Teams Dietetic Tech Relationship Specialty Start Date End Date Marija Edgar APRN CNP PCP - General Nurse Practitioner 04/30/20 04/14/23 Esha Grimm PAUcheC [address] [place] [address] PCP - General Family Medicine 05/04/23 Lita Oseguera Personal Advocate & Liaison (PAL) 02/28/20 03/27/23 Marija Edgar APRN BIRD SITTER Assigned PCP 06/08/20 04/29/23 Keisha Dotson MD [address] [place], [place] 2449[address] Assigned Neuroscience Provider 06/04/20 04/01/23 Diana Desir, [facility] [address] [place], [place] [address] Pharmacist Pharmacist 04/17/21 Rain Galaviz PA-C [address] [place] [address] [address] [place] [address] Physician Printed Circuit Boards Contact Printer Dermatology 04/28/21 Tavia Wyatt MD [address] [place] [address] [address] [place], [place] [id number] Dermatology 07/14/21 Erica Farrell APRN BIRD SITTER [address] [place] [address] Nurse Practitioner Cardiovascular Disease 09/09/21 Rich Barrett MD [address] [id number] Physician Ophthalmology 01/21/22 Neil Kent MD [address] [place], [place] [address] Dermatology 02/24/22 Diana Desir, [facility] [address] [place], [place] 3[address] Assigned MTM Pharmacist 04/07/22 Livan Sharif MD [address] [place] [id number] Cardiovascular Disease 05/14/22 Catherine Cm MD [address] [place] [address] Cardiovascular Disease 07/21/22 Valery Veronica, PAUcheC [address] [place], [place] [address] Physician Printed Circuit Boards Contact Printer Dermatology 07/21/22 Brea Quinn APRN BIRD SITTER [address] [place], [place] [address] Nurse Practitioner Dermatology 09/21/22 Brea Quinn APRN BIRD SITTER [address] [place], [place] 442802 Assigned Surgical Provider 10/09/22 05/01/24 [place] [address] [place] [address] Assigned Musculoskeletal Provider 10/09/22 05/01/24 Livan Sharif MD [address] [place], [place] [address] Assigned Heart and Vascular Provider 11/06/22 11/12/22 Catherine Cm MD [address] [place] [address] Assigned Heart and Vascular Provider 11/13/22 05/27/23 Sydnie Martinez RN Personal Advocate & Liaison (PAL) Family Medicine 03/28/23 07/31/23 Alfonso Renteria MD [address] [facility] [address] [place] [address] Assigned Neuroscience Provider 04/02/23 Cheng Todd PA-C [address] [place] [address] [phone] Assigned PCP 04/30/23 07/15/23 Radha Lomeli APRN BIRD SITTER [address] [place] [address] Assigned Heart and Vascular Provider 05/28/23 Jelena David OD [address] [place] [place] [address] Ophthalmology 06/15/23 Pao Joseph, VJ Personal Advocate & Liaison (PAL) Nurse 08/01/23 11/07/23 Esha Grimm PAUcheC [address] [place] [address] Assigned PCP 07/16/23 Valery Veronica PA-C [address] [place] [address] Physician Printed Circuit Boards Contact Printer Dermatology 09/19/23 Rey Tay MD [address] [place] [address] MD Gastroenterology 09/20/23 Rocky Zepeda DO [address] [place], [place] [address] Physician Gastroenterology 09/20/23 Philip Dumont MD [address] [place] [address] Physician Ophthalmology 09/22/23 Meredith Carrera PA-C [address] [place] [address] Assigned Gastroenterology Provider 11/01/23 Neil Kent MD [address] [place] [address] Dermatology 11/02/23 [place] [address] [phone] Neurological Surgery 12/26/23 Audrey Waite PA-C [address] [place] [address] Physician Printed Circuit Boards Contact Printer Dermatology 02/28/24 Valery Veronica PA-C [address] [place] [address] Physician Printed Circuit Boards Contact Printer Dermatology 04/10/24 Herminia Hatch MD [address] [place] [address] [phone] Assigned Rheumatology Provider 07/02/24 documented as of this encounter
--- OUTSIDE RECORDS SUMMARY | 2024-08-28 18:26 | XMS_ITS | Clinical Summary ---
Author Organization [facility] Address [facility] [place] [address] Care Team Providers Care Swabber Name Role Phone Pcp, No Primary Care Provider Unavailabl e Clinic, No Pcp Or Unavailable Unavailable Allergies Active Allergy Reactions Criticality Noted Date Comments Vancomycin Other - Describe In Comment Field Medications biotin-silicon kmpn-C-sxudaran 3,000 mcg -100 mg-50 mg TbER Take [...] Encounters Date Type Department Care Team Description 08/28/2024 3:35 PM CROP OR LIVESTOCK TENANT FARMER Office Visit [facility] [address] [facility] [address] [place] [address] Ernestina Toribio MD Lightheaded (Started today ) 08/28/2024 Orders Only [facility] [address] [place] [address] Ernestina Toribio MD Lab 08/28/2024 Travel from Last 3 Months Social History Tobacco Use Types Packs/Day Years Used Date Smoking Tobacco: Former Cigarettes Smokeless Tobacco: Never Tobacco Cessation:Counseling Given: Not Answered Alcohol Use Standard Drinks/Week Comments Yes 0 (1 standard drink = 0.6 oz pur e alcohol) Comments No Sex and Gender Information Value Date Recorded Sex Assigned at Not on file Legal Sex Female 2:29 PM CROP OR LIVESTOCK TENANT FARMER Gender Identity Not on file Sexual Orientation Not on file Travel History Travel Start Travel End [place] 07/28/2024 08/28/2024 Obstetrics History Last Filed Vital Signs Vital Sign Reading Time Taken Comments Blood Pressure 111/58 08/28/2024 3:42 PM CROP OR LIVESTOCK TENANT FARMER Pulse 72 08/28/2024 3:42 PM CROP OR LIVESTOCK TENANT FARMER Temperature 36.4 C (97.5 F) 08/28/2024 3:42 PM CROP OR LIVESTOCK TENANT FARMER Respiratory Rate 15 08/28/2024 3:42 PM CROP OR LIVESTOCK TENANT FARMER Oxygen Saturation 99% 08/28/2024 3:42 PM CROP OR LIVESTOCK TENANT FARMER Inhaled Oxygen Concentration - - Weight 90.7 kg (200 lb) 08/28/2024 3:42 PM CROP OR LIVESTOCK TENANT FARMER Height 166.5 cm (5' 5.55) 08/31/2018 11:[address] Body Mass Index - - Plan of [...] Procedure Name Priority Date/Time Associated Diagnosis Comments ME BLOOD COUNT COMPLETE AUTO&AUTO DIFRNTL WBC Routine 08/28/2024 4:57 PM CROP OR LIVESTOCK TENANT FARMER Dizzy ISTAT CHEM 8 Routine 08/28/2024 4:57 PM CROP OR LIVESTOCK TENANT FARMER Dizzy UA W/ SEDIMENT EXAM REFLEXED PER CRITERIA STAT 08/28/2024 4:40 PM CROP OR LIVESTOCK TENANT FARMER Urine frequency from Last 3 Months Results * IN CLINIC Chem 8 (08/28/2024 4:57 PM CROP OR LIVESTOCK TENANT FARMER) Pathologist [facility] POCT, SODIUM, ISTAT 139 138 - 146 mmol/L [facility] (Urgent Care) POCT, POTASSIUM, ISTAT 3.7 3.5 - 4.9 mmol/L [facility] (Urgent [facility]) POCT, CHLORIDE, ISTAT 101 98 - 109 mmol/L [facility] (Urgent [facility]) POCT, CARBON DIOXIDE, ISTAT 26 24 - 29 mmol/L [facility] (Urgent Care) POCT, GLUCOSE ISTAT 77 70 - 105 mg/dL [facility] (Urgent Care) POCT, UREA NITROGEN (BUN) ISTAT 14 8 - 26 mg/dL [facility] (Urgent Care) POCT,CREATININE , ISTAT 0.9 0.6 - 1.3 mg/dL [facility] (Urgent Care) POCT, CALCIUM, IONIZED, ISTAT 4.9 4.5 - 5.3 mg/dL [facility] (Urgent Care) Blood BLOOD SPECIMEN / Unknown 08/28/2024 4:57 PM CROP OR LIVESTOCK TENANT FARMER 08/28/2024 4:57 PM CROP OR LIVESTOCK TENANT FARMER us Ernestina Toribio MD CHEMISTRY Final Result [facility] [address] [place] [address], [facility] (Urgent Care) [address] [place] [address] * (ABNORMAL) IN CLINIC CBC and Differential (08/28/2024 4:57 PM CROP OR LIVESTOCK TENANT FARMER) [facility] WHITE BLOOD CELL COUNT 6.5 3.8 - 10.8 Thousand/u L [facility] (Urgent Care) RED BLOOD CELL COUNT 4.71 3.80 - 5.10 Million/uL [facility] (Urgent Care) HEMOGLOBIN 12.1 11.7 - 15.5 g/dL [facility] (Urgent Care) HEMATOCRIT 38.6 35.0 - 45.0 % [facility] (Urgent Care) MCV 82.0 80.0 - 100.0 fL [facility] ([facility]) MCH 25.7(L) 27.0 - 33.0 pg [facility] (Urgent Care) MCHC 31.3(L) 32.0 - 36.0 g/dL [facility] (Urgent Care) Comment: For adults, a slight decrease in the calculated MCHC value (in the range of 30 to 32 g/dL) is most likely not clinically significant; however, it should be interpreted with caution in correlation with other red cell parameters and the patient's clinical condition. RDW 12.5 11.0 - 15.0 % [facility] (Urgent [facility]) PLATELET COUNT 246 140 - 400 Thousand/u L [facility] (Urgent Care) MPV 10.2 7.5 - 12.5 fL [facility] (Urgent Care) ABSOLUTE NEUTROPHILS 3,816 1,500 - 7,800 cells/uL [facility] (Urgent Care) ABSOLUTE LYMPHOCYTES 2,009 850 - 3,900 cells/uL [facility] (Urgent [facility]) ABSOLUTE MONOCYTES 371 200 - 950 cells/uL [facility] (Urgent Care) ABSOLUTE EOSINOPHILS 286 15 - 500 cells/uL [facility] (Urgent Care) ABSOLUTE BASOPHILS 20 0 - 200 cells/uL [facility] (Urgent Care) NEUTROPHILS 58.7 % [facility] (Urgent Care) LYMPHOCYTES 30.9 % [facility] (Urgent Care) MONOCYTES 5.7 % [facility] (Urgent Care) EOSINOPHILS 4.4 % [facility] (Urgent Care) BASOPHILS 0.3 % [facility] (Urgent Care) Blood BLOOD SPECIMEN / Unknown 08/28/2024 4:57 PM CROP OR LIVESTOCK TENANT FARMER 08/28/2024 4:57 PM CROP OR LIVESTOCK TENANT FARMER us Ernestina Toribio MD HEMATOLOGY Final Result Performing Organization Address City/[facility]/ZIP Co de Phone Number [facility] [address] [place] [address], [facility] (Urgent Care) [address] [place] [address] * STAT Urinalysis w/ reflex to Microscopic (08/28/2024 4:40 PM CROP OR LIVESTOCK TENANT FARMER) COLOR YELLOW YELLOW [facility] (Urgent Care) APPEARANCE CLEAR CLEAR [facility] ([facility] Care) SPECIFIC GRAVITY < OR = 1.005 1.001 - 1.035 [facility] ([facility] Care) PH 5.5 5.0 - 8.0 [facility]) GLUCOSE NEGATIVE NEGATIVE [facility]) BILIRUBIN NEGATIVE NEGATIVE [facility] ([facility]) KETONES NEGATIVE NEGATIVE [facility]) OCCULT BLOOD NEGATIVE NEGATIVE [facility]) PROTEIN NEGATIVE NEGATIVE [facility]) NITRITE NEGATIVE NEGATIVE [facility] ([facility]) LEUKOCYTE ESTERASE NEGATIVE NEGATIVE [facility] ([facility]) Urine URINE SPECIMEN / Unknown 08/28/2024 4:40 PM CROP OR LIVESTOCK TENANT FARMER 08/28/2024 4:41 PM CROP OR LIVESTOCK TENANT FARMER us Ernestina Toribio MD URINE Final Result Performing Organization Address City/[facility]/ZIP Co de Phone Number [facility] [address] [place] [address], [facility] (Urgent Care) [address] [place] [address] from Last 3 Months Insurance [facility] Care Teams Swabber Relationship Specialty Start Date End Date Pcp, No . PCP - General 03/25/24 Clinic, No Pcp Or . 03/25/24
--- OUTSIDE RECORDS SUMMARY | 2024-08-28 18:27 | XMS_ITS | Encounter Summary ---
Author Organization [place] Address [address] [place] [address] Care Team Providers Care Watch Guard Gate Name Role Phone Lita Oseguera Unavailable Unavailable Marija Edgar APRN PRINTED CIRCUIT BOARDS PLASMA ETCHER Primary Care Provider + Chanelle Mccann APRN CNM Unavailab le Kyara De La Fuente RN Unavailable [phone] Marija Edgar APRN PRINTED CIRCUIT BOARDS PLASMA ETCHER Unavailable [phone] Mynor Broussard MD Unavailable [phone] Keisha Dotson MD Unavailable Galo Burrell MD Unavailable Unavailable Cristina Wood Unavailable Diana Desir [facility] Unavailable Rain Galaviz PA-C Unavailable Summer Lara MD Unavailable [phone] Summer Lara MD Unavailable [phone] Summer Lara MD Unavailable [phone] Tavia Wyatt MD Unavailable Johnny Murillo MD Unavailable Erica Farrell APRN PRINTED CIRCUIT BOARDS PLASMA ETCHER Unavailable Vikas Teresita Watson [facility] Unavailable Tavia Wyatt MD Unavailable Diana Desir [facility] Unavailable [phone] Rich Barrett MD Unavailable Neil Kent MD Unavailable Roney Story DPM Unavailable [phone] Erica Farrell APRN PRINTED CIRCUIT BOARDS PLASMA ETCHER Unavailable Diana Desir [facility] Unavailable [phone] Jelena David Unavailable Galo Burrell MD Unavailable Unavailable Livan Sharif MD Unavailable Livan Sharif MD Unavailable + Catherine Cm MD Unavailable + Valery Veronica-C Unavailable [phone] Catherine Cm MD Unavailable + Johnny Murillo MD Unavailable [phone] Brea Quinn CLASSICS TEACHER PRINTED CIRCUIT BOARDS PLASMA ETCHER Unavailable [phone] Brea Quinn CLASSICS TEACHER PRINTED CIRCUIT BOARDS PLASMA ETCHER Unavailable [phone] Jose Francisco Johnson MD Unavailable Livan Sharif MD Unavailable + Catherine Cm MD Unavailable + Sydnie Martinez RN Unavailable Unavailable Alfonso Renteria MD Unavailable [phone] Esha Grimm PA-C Primary Care Provider Cheng Todd PA-C Unavailable Radha Lomeli CLASSICS TEACHER PRINTED CIRCUIT BOARDS PLASMA ETCHER Unavailable [phone] Jelena David OD Unavailable Pao Joseph RN Unavailable Unavailable Esha Grimm PA-C Unavailable [phone] Valery Veronica PA-C Unavailable [phone] Rey Tay MD Unavailable Rocky Zepeda DO Unavailable Philip Dumont MD Unavailable [phone] Meredith Carrera PA-C Unavailable [phone] Neil Kent MD Unavailable Juan Pablo Emmanuel MD Unavailable [phone] Audrey Waite PA-C Unavailable [phone] Valery Veronica PA-C Unavailable [phone] Herminia Hatch MD Unavailable Encounter Details Date Type Department Care Team (Late st Contact Info) Description 02/06/[address] [address] [facility] Diopview Social History Tobacco [...] do you attend chur or temple services? More than 4 times [...] Answer Date Recorded PHQ-2 Score 3 [facility] [...] in a penitentiary (including now)? No 08/11/2020 Floyd Depression Scale Answer Date Recorded Floyd Depression Score 5 01/14/2021 Last EPDS Self Harm Result Not on file 01/14 Education Answer Date Recorded What is the highest level of school you have completed or the highest degree you have received? 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 COUNTER CLERK TRACTOR PARTS Gender Identity Female 03/02/2021 5:45 PM CDT [...] CDT Office Visit [facility] Neurology [address], [address] [place] [address] [place] [address] [address] [place] [address] Johnny Penn MD [address] [place] [address] documented as of this encounter Visit Diagnoses Not on filedocumented in this encounter Additional Health Concerns Infection Onset Date Last Indicated Resolved Time Rule Out COVID-19 05/11/2021 05/11/2021 05/13/2021 10:18 AM CDT Rule Out COVID-19 07/13/2021 07/13/2021 07/14/2021 3:04 PM COUNTER CLERK TRACTOR [employer]S Rule Out COVID-19 07/18/2021 07/18/2021 07/20/2021 1:56 PM COUNTER CLERK TRACTOR [employer]S COVID-19 07/18/2021 07/18/2021 08/08/2021 11:3 9 PM COUNTER CLERK TRACTOR [employer]S Rule Out COVID-19 12/18/2021 12/18/2021 12/19/2021 11:34 AM CDT Rule Out COVID-19 02/24/2022 02/24/2022 02/25/2022 1:08 PM CDT Rule Out COVID-19 04/26/2022 04/26/2022 04/26/2022 6:47 AM CDT Rule Out COVID-19 05/17/2022 05/17/2022 05/17/2022 10:20 PM COUNTER CLERK TRACTOR [employer]S Rule Out COVID-19 06/09/2022 06/09/2022 06/09/2022 9:35 AM COUNTER CLERK TRACTOR [employer]S COVID-19 06/09/2022 06/09/2022 06/30/2022 11:4 1 PM COUNTER CLERK TRACTOR [employer]S Rule Out COVID-19 11/10/2022 11/10/2022 11/11/2022 12:17 PM CDT Rule Out COVID-19 03/07/2023 03/07/2023 03/07/2023 1:20 PM CDT Rule Out COVID-19 12/26/2023 12/26/2023 12/26/2023 9:50 AM CDT Rule Out COVID-19 04/09/2024 04/09/202404/1004/10/2024 6:48 PM CDT Assessment Noted Time PHQ-9 Depression Total Score: 6 09/30/19 21 3:25 PM CDT documented as of this encounter Care Teams Watch Guard Gate Relationship Specialty Start Date End Date Marija Edgar APRN PRINTED CIRCUIT BOARDS PLASMA ETCHER PCP - General Nurse Practitioner 04/30/20 04/14/23 Esha Grimm PA-C [address] [place] [phone] PCP - General Family Medicine 05/04/23 Lita Oseguera Personal Advocate & Liaison (PAL) 02/28/20 03/27/23 Chanelle Mccann APRN CNM [address] [place] [address] 200 [place], [place] 964927 Assigned OBGYN Provider 05/02/2005/09 Kyara De La Fuente, RN Specialty Slasher Runner Neurology 06/04/20 03/05/21 Marija Edgar APRN PRINTED CIRCUIT BOARDS PLASMA ETCHER Assigned PCP 06/08/20 04/29/23 Mynor Broussard MD [address] [facility] 500 [place], [place] 943605 Assigned Surgical Provider 06/01/20 11/28/21 Keisha Dotson MD 909 [place] [address] Assigned Neuroscience Provider 06/04/20 04/01/23 Galo Burrell MD Assigned Heart and Vascular Provider 10/05/20 04/02/22 Cristina anderson Financial Resource Worker 02/09/21 02/09/21 Diana Desir, [facility] [address] [place] [address] Pharmacist Pharmacist 04/17/21 Rain Galaviz PA-C [address] [facility] [place] [address] Physician Newborn Hearing Screener Dermatology 04/28/21 Summer Lara MD [address] [place] [address] Assigned OBGYN Provider 05/10/2105/23 Summer Lara MD [address] [place], [place] 4106[address] Assigned OBGYN Provider 05/31/21 Summer Lara MD [address] [place] [address] Assigned OBGYN Provider 05/24/2105/30 Tavia Wyatt MD [address] [place] [address] Dermatology 07/14/21 Johnny Murillo MD [address] [facility] [address] [place] [address] Assigned Musculoskeletal Provider 08/30/21 03/17/22 Erica Farrell APRN PRINTED CIRCUIT BOARDS PLASMA ETCHER [address] [facility] [address] [place], [place] 8[address] Nurse Practitioner Cardiovascular Disease 09/09/21 Teresita Bean, [facility] [address] [place] [address] Pharmacist Pharmacist 09/24/21 09/29/21 Tavia Wyatt MD [address] [place] [address] Assigned Surgical Provider 11/29/21 05/07/22 [facility] [address] [place] [address] Assigned MTM Pharmacist 01/02/22 Rich Barrett MD [address] 876[address] Physician Ophthalmology 01/21/22 Neil Kent MD 500 [place], [place] 217635 Dermatology 02/24/22 Roney Story DPM [address] [facility] [address] [place] [address] Assigned Musculoskeletal Provider 03/20/22 08/13/22 Erica Farrell APRN PRINTED CIRCUIT BOARDS PLASMA ETCHER 1700 [place] [address] Assigned Heart and Vascular Provider 04/03/22 04/16/22 [facility] [address] [place], [place] [address] Assigned MTM Pharmacist 04/07/22 Frankie Jelena TempletonSONJA woods [address] [facility] [place] [address] Assigned Surgical Provider 05/08/22 10/08/22 Galo Burrell MD Assigned Heart and Vascular Provider 04/17/22 06/11/22 Livan Sharif MD [address] [place] 84[address] MD Cardiovascular Disease 05/14/22 Livan Sharif MD [address] [place] 506505 Assigned Heart and Vascular Provider 06/12/22 07/23/22 Catherine Cm MD [address] [facility] [address] [place] 119[address] Cardiovascular Disease 07/21/22 Valery Veronica, PA-C [address] [place], [place] 4350[address] Physician Newborn Hearing Screener Dermatology 07/21/22 Catherine Cm MD [address] [place] [address]75 Assigned Heart and Vascular Provider 07/24/22 11/05/22 Johnny Murillo MD [address] [place] [address] Assigned Musculoskeletal Provider 08/14/22 10/08/22 Brea Quinn APRN PRINTED CIRCUIT BOARDS PLASMA ETCHER 500 [place] [address] Nurse Practitioner Dermatology 09/21/22 Brea Quinn APRN PRINTED CIRCUIT BOARDS PLASMA ETCHER 6401 [place] [address] Assigned Surgical Provider 10/09/22 05/01/24 [place] [address] [facility] 300 [place] [address] Assigned Musculoskeletal Provider 10/09/22 05/01/24 Livan Sharif MD [address] Sylvia, [facility] [address] [place] [address] Assigned Heart and Vascular Provider 11/06/22 11/12/22 Catherine Cm MD [address] [facility] [address] [place], [place] [address] Assigned Heart and Vascular Provider 11/13/22 05/27/23 Sydnie Martinez RN Personal Advocate & Liaison (PAL) Family Medicine 03/28/23 07/31/23 Alfonso Renteria MD [address] [facility] 200 [place] [address] Assigned Neuroscience Provider 04/02/23 Cheng Todd PA-C [address] [place] [address] [id number] Assigned PCP 04/30/23 07/15/23 Radha Lomeli APRN PRINTED CIRCUIT BOARDS PLASMA ETCHER [address] [place] [address] Assigned Heart and Vascular Provider 05/28/23 Jelena David OD [address] [facility] [place] [address] MD Ophthalmology 06/15/23 Pao Joseph, RN Personal Advocate & Liaison (PAL) Nurse 08/01/23 11/07/23 Esha Grimm PA-C [address] [place] [phone] Assigned PCP 07/16/23 Valery Veronica PA-C [address] [place] [address] 081145 Physician Newborn Hearing Screener Dermatology 09/19/23 Rey Tay MD [address] [place] [address] Gastroenterology 09/20/23 Rocky Zepeda DO [address] [place] [address] 514785 Physician Gastroenterology 09/20/23 Philip Dumont MD [address] [place] [address] 525055 Physician Ophthalmology 09/22/23 Meredith Carrera PA-C [address] [place] [address] 636065 Assigned Gastroenterology Provider 11/01/23 Neil Kent MD [address] [address] Dermatology 11/02/23 [place] [address] 101[address] Neurological Surgery 12/26/23 Audrey Waite PA-C 500 [place] [address] Physician Newborn Hearing Screener Dermatology 02/28/24 Valery Veronica PA-C [address] [place] [address] Physician Newborn Hearing Screener Dermatology 04/10/24 Herminia Hatch MD [facility]5 [place], [place] [address] Assigned Rheumatology Provider 07/02/24 documented as of this encounter
--- OUTSIDE RECORDS SUMMARY | 2024-08-28 18:27 | XMS_ITS | Encounter Summary ---
Author Organization [place] Address [address] [place] [address] Care Team Providers Care Gas Distribution Supervisor Name Role Phone Lita Oseguera Unavailable Unavailable Marija Edgar APRN LOOM INSPECTOR Primary Care Provider + Marija Edgar APRN LOOM INSPECTOR Unavailable [phone] Keisha Dotson MD Unavailable [phone] Diana Desir [facility] Unavailable Rain Galaviz PA-C Unavailable Tavia Wyatt MD Unavailable [phone] Erica Farrell APRN LOOM INSPECTOR Unavailable Rich Barrett MD Unavailable [phone] Neil Kent MD Unavailable Diana Desir [facility] Unavailable Livan Sharif MD Unavailable Catherine Cm MD Unavailable + Valery Veronica PA-C Unavailable [phone] Catherine Cm MD Unavailable + Brea Quinn ENGINEERING PRODUCTION WORKER LOOM INSPECTOR Unavailable Brea Quinn APRN LOOM INSPECTOR Unavailable [phone] Jose Francisco Johnson MD Unavailable Livan Sharif MD Unavailable Catherine Cm MD Unavailable + Sydnie Martinez RN Unavailable Unavailable Alfonso Renteria MD Unavailable [phone] Esha Grimm PA-C Primary Care Provider Cheng Todd PA-C Unavailable Radha Lomeli ENGINEERING PRODUCTION WORKER LOOM INSPECTOR Unavailable Jelena David Radha OD Unavailable Pao Joseph RN Unavailable Unavailable Esha Grimm PA-C Unavailable [phone] Valery Veronica PA-C Unavailable Rey Tay MD Unavailable Rocky Zepeda DO Unavailable Philip Dumont MD Unavailable Meredith Carrera PA-C Unavailable [phone] Neil Kent MD Unavailable Juan Pablo Emmanuel MD Unavailable Audrey Waite PA-C Unavailable Valery Veronica PA-C Unavailable Herminia Hatch MD Unavailable Reason for Visit * Reason Onset Date Comments Pt. Information/instruction 10/11/2022 Appointment 10/11/2022 Encounter Details Date Type Department Care Team (Late st Contact Info) Description 10/11/2022 [facility] [address] [facility] [address] [place] [address] [place] [address] [place] [address] Pt. Information/instructio n; Appointment Social History Tobacco [...] How often do you attend samaritan or mosque serv ices? Never 09/22/2021 Do [...] Answer Date Recorded PHQ-2 Score 1 10/11/2022 [facility] - [...] a senior care (including now)? No 09/22/2021 [place] Depression Scale Answer Date Recorded [facility] [...] PM CDT Legal Sex Female 4:13 AM JUKEBOX ROUTE DRIVER Gender Identity Female 03/02/2021 5:45 PM [...] encounter. Please see new request below from [facility] and advise. Mandi Byrd RN * Telephone Encounter - Treasure Lee - 10/15/2022 2:14 PM CDT Health Call Center Phone Message May a detailed message be left on voicemail: yes Reason for Call: Other: [facility] is wondering if she can also be conference in on patient's upcoming appointment (10/27). Action Taken: Other: [facility] Sports Medicine Travel Screening: Not Applicable * Telephone Encounter - Mary Easley - 10/12/2022 12:47 PM CDT Called Rosalva to discuss what they are needing from 's office. No answer. Left message to call back Kristina Easley ATC * Telephone Encounter - Treasure Lee - 10/11/2022 10:05 AM CDT [facility] Call Center Phone Message May a detailed message be left on voicemail: yes Reason for Call: Other: Please contact patient's extrusion press adjuster, Rosalva so she can authorize patient's MRI. Rosalva's contact info: phone# [phone] fax# [phone] Action Taken: Other: [facility] Sports Medicine Travel Screening: Not Applicable documented in this encounter Plan of Treatment Upcoming Encounters Date Type Department Care Team (Late Contact Info) Description 10/23/2024 9:30 AM CDT Office Visit [facility] Neurology Clinics - [address], [address] [place] [phone] [place] [address] [address] Johnny Penn MD [address] [facility] [place] [address] documented as of this encounter Visit [...] as of this encounter Care Teams Gas Distribution Supervisor Relationship Specialty Start Date End Date Marija Edgar APRN LOOM INSPECTOR PCP - General Nurse Practitioner 04/30/20 04/14/23 Esha Grimm PA-C [address] [place] [address] PCP - General Family Medicine 05/04/23 Lita Oseguera Personal Advocate & Liaison (PAL) 02/28/20 03/27/23 Marija Edgar APRN LOOM INSPECTOR Assigned PCP 06/08/20 04/29/23 Keisha Dotson MD 909 [place] [address] Assigned Neuroscience Provider 06/04/20 04/01/23 Diana Desir, [facility] [address] [place], [place] 46[address] Pharmacist Pharmacist 04/17/21 Rain Galaviz PA-C [address] [place] [address] [address] [place] [address] Physician Bobbin Winder Dermatology 04/28/21 Tavia Wyatt MD [address] [place] [address] [address] [place] [address] Dermatology 07/14/21 Erica Farrell APRN LOOM INSPECTOR 6405 [facility] [address] [place] 1695[address] Nurse Practitioner Cardiovascular Disease 09/09/21 Rich Barrett MD 516 [facility] 9A [place] [address] Physician Ophthalmology 01/21/22 Neil Kent MD 500 [place], [place] [address] MD Dermatology 02/24/22 Diana Desir, [facility] [address] [place], [place] 7713[address] Assigned MTM Pharmacist 04/07/22 Livan Sharif MD [address] [place], [place] [address] Cardiovascular Disease 05/14/22 Catherine Cm MD [address] [place], [place] [address] Cardiovascular Disease 07/21/22 Valery Veronica, PA-C 909 [place], [place] [address] Physician Bobbin Winder Dermatology 07/21/22 Catherine Cm MD [address] [place] [address]305 Assigned Heart and Vascular Provider 07/24/22 11/05/22 Brea Quinn APRN LOOM INSPECTOR 500 [place], [place] 474[address] Nurse Practitioner Dermatology 09/21/22 Brea Quinn APRN LOOM INSPECTOR [address] [place] [address] Assigned Surgical Provider 10/09/22 05/01/24 [place] [address] [place] [address] Assigned Musculoskeletal Provider 10/09/22 05/01/24 Livan Sharif MD [address] [facility] [address] [place] [address] Assigned Heart and Vascular Provider 11/06/22 11/12/22 Catherine Cm MD [address] [place] [address] Assigned Heart and Vascular Provider 11/13/22 05/27/23 JuanSydnie malik, RN Personal Advocate & Liaison (PAL) Family Medicine 03/28/23 07/31/23 Alfonso Renteria MD 5775 [facility] 200 [place] [address] Assigned Neuroscience Provider 04/02/23 Cheng Todd PA-C [address] [place] [address] Assigned PCP 04/30/23 07/15/23 Radha Lomeli APRN LOOM INSPECTOR [address] [place] [address] Assigned Heart and Vascular Provider 05/28/23 Jelena David OD [address] [place] [address] Ophthalmology 06/15/23 Pao Joseph, RN Personal Advocate & Liaison (PAL) Nurse 08/01/23 11/07/23 Esha Grimm PA-C [address] [place] [phone] Assigned PCP 07/16/23 Valery Veronica PA-C [address] [place] [address] 358555 Physician Bobbin Winder Dermatology 09/19/23 Rey Tay MD [address] [place] [address] 830815 MD Gastroenterology 09/20/23 Rocky Zepeda DO [address] [place] [address] 527315 Physician Gastroenterology 09/20/23 Philip Dumont MD [address] [place] [address] 602655 Physician Ophthalmology 09/22/23 Meredith Carrera PA-C [address] [place] [address]105 Assigned Gastroenterology Provider 11/01/23 Neil Kent MD [address] [address] Dermatology 11/02/23 [place] [address] [place] [address] Neurological Surgery 12/26/23 Audrey Waite PA-C 500 [place] [address] Physician Bobbin Winder Dermatology 02/28/24 Valery Veronica PA-C [address] [place] [address] Physician Bobbin Winder Dermatology 04/10/24 Herminia Hatch MD [address] [place] [address] [id number] Assigned Rheumatology Provider 07/02/24 documented as of this encounter
--- OUTSIDE RECORDS SUMMARY | 2024-08-28 18:27 | XMS_ITS | Encounter Summary ---
Author Organization [facility] Address [address] [place] [address] Care Team Providers Care Finish Patcher Name Role Phone Lita Oseguera Unavailable Unavailable Marija Edgar APRN GEOCHEMISTRY TEACHER Primary Care Provider + Marija Edgar APRN GEOCHEMISTRY TEACHER Unavailable [phone] Keisha Dotson MD Unavailable [phone] Diana Desir [facility] Unavailable Rain Galaviz PA-C Unavailable Tavia Wyatt MD Unavailable Erica Farrell APRN GEOCHEMISTRY TEACHER Unavailable Rcih Barrett MD Unavailable Neil Kent MD Unavailable Roney Story DPM Unavailable [phone] Diana Desir [facility] Unavailable Jelena David OD Unavailable Livan Sharif MD Unavailable Livan Sharif MD Unavailable Catherine Cm MD Unavailable + Valery Veronica PA-C Unavailable Catherine Cm MD Unavailable + Johnny Murillo MD Unavailable [phone] Brea Quinn FIELD CONTROL INSPECTOR GEOCHEMISTRY TEACHER Unavailable [phone] Brea Quinn FIELD CONTROL INSPECTOR GEOCHEMISTRY TEACHER Unavailable [phone] Jose Francisco Johnson MD Unavailable Livan Sharif MD Unavailable Catherine Cm MD Unavailable + Sydnie Martinez RN Unavailable Unavailable Alfonso Renteria MD Unavailable Esha Grimm PA-C Primary Care Provider Cheng Todd PA-C Unavailable [phone] Radha Lomeli FIELD CONTROL INSPECTOR GEOCHEMISTRY TEACHER Unavailable Jelena David OD Unavailable Pao Joseph RN Unavailable Unavailable Esha Grimm PA-C Unavailable [phone] Valery Veronica PA-C Unavailable [phone] Rey Tay MD Unavailable Rocky Zepeda DO Unavailable Philip Dumont MD Unavailable [phone] Meredith Carrera PA-C Unavailable Neil Kent MD Unavailable Juan Pablo Emmanuel MD Unavailable Audrey Waite PA-C Unavailable [phone] Valery Veronica PA-C Unavailable Herminia Hatch MD Unavailable Encounter Details Date Type Department Care Team (Late st Contact Info) Description 07/02/2022 MyC Medical Advice [address] [address] Diana Desir, [facility] [address] [place] [address] Social History Tobacco Use Types Packs/Day Years [...] points; Administer PHQ-9 if positive 1 05/13/2022 [facility] [place] of Occupat ional Health - Occupational Stress [...] in a usp (including now)? No 09/22/2021 [place] Depression Scale Answer Date Recorded [place] Depression Score 5 01/14/2021 Last EPDS Self Harm Result Not on file 01/14 Education Answer Date Recorded What is the highest level of school you have completed or the highest degree you have received? 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 No / Unsure 06/25/2022 8:44 AM PUNCH PRESS FEEDER documented as of this encounter Plan of Treatment Upcoming Encounters Date Type Department Care Team (Late st Contact Info) Description 10/23/2024 9:30 AM CDT Office Visit [facility] Neurology Clinics [address], [address] [place] [address] [place] [address] [place] [address] Johnny Penn MD [address] [facility] [place] [id number] documented as of this encounter Visit Diagnoses [...] documented as of this encounter Care Teams Finish Patcher Relationship Specialty Start Date End Date Marija Edgar APRN GEOCHEMISTRY TEACHER PCP - General Nurse Practitioner 04/30/20 04/14/23 Esha Grimm PA-C [address] [place] [address] PCP - General Family Medicine 05/04/23 Lita Oseguera Personal Advocate & Liaison (PAL) 02/28/20 03/27/23 Marija Edgar APRN GEOCHEMISTRY TEACHER Assigned PCP 06/08/20 04/29/23 Keisha Dotson MD 909 [place] [address] Assigned Neuroscience Provider 06/04/20 04/01/23 Diana Desir, [facility] [address] [place] [address] Pharmacist Pharmacist 04/17/21 Rain Galaviz PA-C [address] [place] [address] [address] [place] [address] Physician Search Engine Marketing Manager Dermatology 04/28/21 Tavia Wyatt MD [address] [place] [address] [place] [address] Dermatology 07/14/21 Erica Farrell APRN GEOCHEMISTRY TEACHER [address] [place] 962525 Nurse Practitioner Cardiovascular Disease 09/09/21 Rich Barrett MD 516 [facility] 9[address] [place], [place] 0[address] Physician Ophthalmology 01/21/22 Neil Kent MD 500 [place], [place] 666295 Dermatology 02/24/22 Roney Story DPM [address] [employer] [facility] [address] [place], [place] 362[address] Assigned Musculoskeletal Provider 03/20/22 08/13/22 Diana Desir, [facility] [address] [place], [place] 338356 Assigned MTM Pharmacist 04/07/22 Jelena David OD 3305 [facility] [place] [address] Assigned Surgical Provider 05/08/22 10/08/22 Livan Sharif MD [address] [place] [address] Cardiovascular Disease 05/14/22 Livan Sharif MD [address] [place] [address] Assigned Heart and Vascular Provider 06/12/22 07/23/22 Catherine Cm MD [address] [place] [address] Cardiovascular Disease 07/21/22 Valery Veronica PA-C [address] [place] [address] 622435 Physician Search Engine Marketing Manager Dermatology 07/21/22 Catherine Cm MD [address] [facility]00 [place] [id number] Assigned Heart and Vascular Provider 07/24/22 11/05/22 Johnny Murillo MD [facility] 742074 Assigned Musculoskeletal Provider 08/14/22 10/08/22 Brea Quinn APRN GEOCHEMISTRY TEACHER [address] [place] [address] 515315 Nurse Practitioner Dermatology 09/21/22 Brea Quinn APRN GEOCHEMISTRY TEACHER [address] [place] [address] [place] 451262 Assigned Surgical Provider 10/09/22 05/01/24 [place] [address] [place] [address] [place] [address] Assigned Musculoskeletal Provider 10/09/22 05/01/24 Livan Sharif MD [address], [facility] [address] [place] 320875 Assigned Heart and Vascular Provider 11/06/22 11/12/22 Catherine Cm MD [address] [place] [address] Assigned Heart and Vascular Provider 11/13/22 05/27/23 Sydnie Martinez RN Personal Advocate & Liaison (PAL) Family Medicine 03/28/23 07/31/23 Alfonso Renteria MD 5775 [facility] 200 [place], [place] 068236 Assigned Neuroscience Provider 04/02/23 Cheng Todd PA-C [address] [place] [address] [phone] Assigned PCP 04/30/23 07/15/23 Radha Lomeli, ARLENE GEOCHEMISTRY TEACHER [address] [place] 503545 Assigned Heart and Vascular Provider 05/28/23 Jelena David OD [address] [facility] [place] [address] Ophthalmology 06/15/23 Pao Joseph, VJ Personal Advocate & Liaison (PAL) Nurse 08/01/23 11/07/23 Esha Grimm PA-C [address] [place] [phone] Assigned PCP 07/16/23 Valery Veronica PA-C 909 [place], [place] 967585 Physician Search Engine Marketing Manager Dermatology 09/19/23 Rey Tay MD 9[address] [place], [place] 667685 MD Gastroenterology 09/20/23 Rocky Zepeda DO 500 [place] [address] Physician Gastroenterology 09/20/23 Philip Dumont MD 516 [place], [place] 282005 Physician Ophthalmology 09/22/23 Meredith Carrera PA-C 9 [place], [place] 362925 Assigned Gastroenterology Provider 11/01/23 Neil Kent MD [address] [place] [address] 520900 Dermatology 11/02/23 [place] [address] [address] [facility] [address] [place], [place] 850157 Neurological Surgery 12/26/23 Audrey Waite PA-C 500 [place] [address] Physician Search Engine Marketing Manager Dermatology 02/28/24 Valery Veronica PA-C 935016 [place] [address] Physician Search Engine Marketing Manager Dermatology 04/10/24 Herminia Hatch MD [facility]5 [place] [address] Assigned Rheumatology Provider 07/02/24 documented as of this encounter
--- OUTSIDE RECORDS SUMMARY | 2024-08-28 18:27 | XMS_ITS | Encounter Summary ---
Author Organization [facility] Address [address] [place] [address] Care Team Providers Care Public Health Technician Name Role Phone Lita Oseguera Unavailable Unavailable Marija Edgar APRN IMPLEMENTATION ENGINEER Primary Care Provider + Marija Edgar APRN IMPLEMENTATION ENGINEER Unavailable [phone] Keisha Dotson MD Unavailable Diana Dseir [facility] Unavailable Rain Galaviz PA-C Unavailable [phone] Tavia Wyatt MD Unavailable Erica Farrell APRN IMPLEMENTATION ENGINEER Unavailable Rich Barrett MD Unavailable Neil Kent MD Unavailable Roney Story DPM Unavailable Diana Desir [facility] Unavailable Jelena David OD Unavailable Livan Sharif MD Unavailable Livan Sharif MD Unavailable Catherine Cm MD Unavailable + Valery Veronica PA-C Unavailable Catherine Cm MD Unavailable + Johnny Murillo MD Unavailable [phone] Brea Quinn ONLINE MERCHANDISING MANAGER IMPLEMENTATION ENGINEER Unavailable [phone] Brea Quinn ONLINE MERCHANDISING MANAGER IMPLEMENTATION ENGINEER Unavailable [phone] Jose Francisco Johnson MD Unavailable Livan Sharif MD Unavailable Catherine Cm MD Unavailable + Sydnie Martinez RN Unavailable Unavailable Alfonso Renteria MD Unavailable Esha Grimm PA-C Primary Care Provider Cheng Todd PA-C Unavailable [phone] Radha Lomeli ONLINE MERCHANDISING MANAGER IMPLEMENTATION ENGINEER Unavailable Jelena David OD Unavailable Pao Joseph RN Unavailable Unavailable Esha Grimm PA-C Unavailable [phone] Valery Veronica PA-C Unavailable [phone] Rey Tay MD Unavailable Rocky Zepeda DO Unavailable Philip Dumont MD Unavailable [phone] Meredith Carrera PA-C Unavailable [phone] Neil Kent MD Unavailable Juan Pablo Emmanuel MD Unavailable Audrey Waite PA-C Unavailable [phone] Valery Veronica PA-C Unavailable Herminia Hatch MD Unavailable Encounter Details Date Type Department Care Team (Late st Contact Info) Description 07/20/2022 MyC Medical Advice [address] [address] Pao Donahue RN Social History [...] often do you attend mormonism or adventism serv ices? Never 09/22/2021 Do [...] points; Administer PHQ-9 if positive 1 05/13/2022 [facility] of Occupat ional [facility] - Occupational Stress [...] in a residential (including now)? 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 No / Unsure 07/23/2022 6:45 AM COMMERCIAL ESCROW ASSISTANT documented as of this encounter Plan of Treatment Upcoming Encounters Date Type Department Care Team (Late st Contact Info) Description 10/23/2024 9:30 AM CDT Office Visit [facility] Neurology [address], [address] [place] [address] [place] [address] [phone] Johnny Penn MD [address] [place] [address] documented as of this encounter Visit Diagnoses [...] as of this encounter Care Teams Public Health Technician Relationship Specialty Start Date End Date Marija Edgar APRN IMPLEMENTATION ENGINEER PCP - General Nurse Practitioner 04/30/20 04/14/23 Esha Grimm PA-C [address] [place] [address] PCP - General Family Medicine 05/04/23 Lita Oseguera Personal Advocate & Liaison (PAL) 02/28/20 03/27/23 Marija Edgar APRN IMPLEMENTATION ENGINEER Assigned PCP 06/08/20 04/29/23 Keisha Dotson MD [address] [place], [place] 313035 Assigned Neuroscience Provider 06/04/20 04/01/23 Diana Desir, [facility] 3033 [place], [place] [address]506 Pharmacist Pharmacist 04/17/21 Rain Galaviz PA-C [address] [place] [address] [address] [place] [address] Physician Retail Beauty Specialist Dermatology 04/28/21 Tavia Wyatt MD [address] [place] [address] [address] [place] [address] Dermatology 07/14/21 Erica Farrell APRN IMPLEMENTATION ENGINEER 6405 [facility] [address] [place] [address] Nurse Practitioner Cardiovascular Disease 09/09/21 Rich Barrett MD 516 [facility] 9A [place], [place] 863935 Physician Ophthalmology 01/21/22 Neil Kent MD 500 [place] [address] Dermatology 02/24/22 Roney Story DPM [address] [facility] [address] [place] [address] Assigned Musculoskeletal Provider 03/20/22 08/13/22 Diana Desir, [facility] [address] [place] [address] Assigned MTM Pharmacist 04/07/22 Jelena David OD 3305 [facility] [place] [address] Assigned Surgical Provider 05/08/22 10/08/22 Livan Sharif MD [address] [place] [address] Cardiovascular Disease 05/14/22 Livan Sharif MD [address] [place] [address] Assigned Heart and Vascular Provider 06/12/22 07/23/22 Catherine Cm MD [address] [place] [address] Cardiovascular Disease 07/21/22 Valery Veronica, PAUcheC [address] [place] [address] Physician Retail Beauty Specialist Dermatology 07/21/22 Catherine Cm MD [address] [facility]00 [place] [address] Assigned Heart and Vascular Provider 07/24/22 11/05/22 Johnny Murillo MD [address] [place] [address] Assigned Musculoskeletal Provider 08/14/22 10/08/22 Brea Quinn APRN IMPLEMENTATION ENGINEER [address] [place] [address] Nurse Practitioner Dermatology 09/21/22 Brea Quinn APRN IMPLEMENTATION ENGINEER [address] [place] [address] Assigned Surgical Provider 10/09/22 05/01/24 [place] [address] [address] Assigned Musculoskeletal Provider 10/09/22 05/01/24 Livan Sharif MD [address] [place] 9816300 [place] [address] Assigned Heart and Vascular Provider 11/06/22 11/12/22 Catherine Cm MD [address] [place], [place] 519475 Assigned Heart and Vascular Provider 11/13/22 05/27/23 Sydnie Martinez RN Personal Advocate & Liaison (PAL) Family Medicine 03/28/23 07/31/23 Alfonso Renteria MD 5775 [facility] 200 [place] [address] Assigned Neuroscience Provider 04/02/23 Cheng Todd PA-C [address] [place] [address] [phone] Assigned PCP 04/30/23 07/15/23 Radha Lomeli APRN IMPLEMENTATION ENGINEER [address] [place] [address] Assigned Heart and Vascular Provider 05/28/23 Jelena David OD [address] [facility] [place] [address] Ophthalmology 06/15/23 Pao Joseph RN Personal Advocate & Liaison (PAL) Nurse 08/01/23 11/07/23 Esha Grimm PA-C [address] [place] [address] Assigned PCP 07/16/23 Valery Veronica PA-C [address] [place] [address] Physician Retail Beauty Specialist Dermatology 09/19/23 Rey Tay MD 909 [place] [address] Gastroenterology 09/20/23 Rocky Zepeda DO 500 [place] [address] Physician Gastroenterology 09/20/23 Philip Dumont MD 6 [place] [address] Physician Ophthalmology 09/22/23 Meredith Carrera PA-C 9 [place] [address] Assigned Gastroenterology Provider 11/01/23 Neil Kent MD [address] [address] MD Dermatology 11/02/23 [place] [address] [address] Neurological Surgery 12/26/23 Audrey Waite PA-C 500 [place] [address] Physician Retail Beauty Specialist Dermatology 02/28/24 Valery Veronica PA-C 942657 [place], [place] [address] Physician Retail Beauty Specialist Dermatology 04/10/24 Herminia Hatch MD 1875 [place], [place] 50823[address] Assigned Rheumatology Provider 07/02/24 documented as of this encounter
--- OUTSIDE RECORDS SUMMARY | 2024-08-28 18:27 | XMS_ITS | Encounter Summary ---
Author Organization [facility] Address [address] [place] [address] Care Team Providers Care Manager Of Housekeeping Name Role Phone Lita Oseguera Unavailable Unavailable Marija Edgar APRN RAWHIDE BONE ROLLER Primary Care Provider + Marija Edgar APRN RAWHIDE BONE ROLLER Unavailable [phone] Keisha Dotson MD Unavailable Diana Desir [facility] Unavailable [phone] Rain Galaviz PA-C Unavailable Tavia Wyatt MD Unavailable [phone] Erica Farrell APRN RAWHIDE BONE ROLLER Unavailable Rich Barrett MD Unavailable [phone] Neil [place] MD Unavailable Diana Desir [facility] Unavailable [phone] Livan Sharif MD Unavailable Catherine Cm MD Unavailable + Valery Veronica PA-C Unavailable [phone] Catherine Cm MD Unavailable + Brea Quinn TOBACCO DRUMMER RAWHIDE BONE ROLLER Unavailable Brae Quinn APRN RAWHIDE BONE ROLLER Unavailable Jose Francisco Johnson MD Unavailable Livan Sharif MD Unavailable Catherine Cm MD Unavailable + Sydnie Martinez RN Unavailable Unavailable Alfonso Renteria MD Unavailable [phone] Esha Grimm PA-C Primary Care Provider Cheng Todd PA-C Unavailable Radha Lomeli TOBACCO DRUMMER RAWHIDE BONE ROLLER Unavailable Jelena David OD Unavailable [phone] Pao Joseph RN Unavailable Unavailable Esha Grimm PA-C Unavailable [phone] Valery Veronica PA-C Unavailable [phone] Rey Tay MD Unavailable Rocky Zepeda DO Unavailable Philip Dumont MD Unavailable [phone] Meredith Carrera PA-C Unavailable Neil Kent MD Unavailable Juan Pablo Emmanuel MD Unavailable Audrey Waite PA-C Unavailable JeremíasValery damon PA-C Unavailable [phone] Herminia Hatch MD Unavailable Encounter Details Date Type Department Care Team (Late st Contact Info) Description 10/22/2022 [facility] Sports Medicine [facility] [address] [facility] [address] [place] [address] [place] [address] [place] [address] Social History Tobacco Use Types [...] How often do you attend presybeterian or judaism serv ices? Never 09/22/2021 Do [...] Recorded PHQ-2 Score 1 10/11/2022 [facility] - Occupational Stress Questionnaire Answer Date [...] in a halfway (including now)? 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 Gender Identity Female 03/02/2021 5:45 PM [...] Description 10/23/2024 9:30 AM CDT Office Visit [facility] Neurology Clinics [address], [address] [place] [address] [place] [address] [address] [place] [address] Johnny Penn MD 6460 [facility] [place] 364105 documented as of this encounter Visit Diagnoses [...] of this encounter Care Teams Manager Of Housekeeping Relationship Specialty Start Date End Date Marija Edgar APRN RAWHIDE BONE ROLLER PCP - General Nurse Practitioner 04/30/20 04/14/23 Esha Grimm PA-C [address] [place] [address] PCP - General Family Medicine 05/04/23 Lita Oseguera Personal Advocate & Liaison (PAL) 02/28/20 03/27/23 Marija Edgar APRN RAWHIDE BONE ROLLER Assigned PCP 06/08/20 04/29/23 Keisha Dotson MD 909 [place] [address] Assigned Neuroscience Provider 06/04/20 04/01/23 Diana Desir, [facility] 3033 [place] [address] Pharmacist Pharmacist 04/17/21 Rain Galaviz PA-C [address] [place] [address] [place] [address] Physician Residential Program Coordinator Dermatology 04/28/21 Tavia Wyatt MD [address] [place] [address] [address] [place] [address] Dermatology 07/14/21 Erica Farrell APRN RAWHIDE BONE ROLLER [address] [place] [address] Nurse Practitioner Cardiovascular Disease 09/09/21 Rich Barrett MD [address] [place] [address], [address] 277[address] Physician Ophthalmology 01/21/22 Neil Kent MD [address] [place] [address] 367095 Dermatology 02/24/22 [facility] [address] [place] [address] Assigned [place] Pharmacist 04/07/22 Livan Sharif MD [address], [facility] [address] [place] [address] Cardiovascular Disease 05/14/22 Catherine Cm MD [address] [place] [address] Cardiovascular Disease 07/21/22 Valery Veronica, PA-C [address] [place] [address] Physician Residential Program Coordinator Dermatology 07/21/22 Catherine Cm MD [address] [place] [address] Assigned Heart and Vascular Provider 07/24/22 11/05/22 Brea Quinn APRN RAWHIDE BONE ROLLER 500 [place] [address] Nurse Practitioner Dermatology 09/21/22 Brea Quinn APRN RAWHIDE BONE ROLLER 6401 [facility] [address] Assigned Surgical Provider 10/09/22 05/01/24 [place] [address] [address] [place] [address] Assigned Musculoskeletal Provider 10/09/22 05/01/24 Livan Sharif MD [address], [facility] [address] [place] [address] Assigned Heart and Vascular Provider 11/06/22 11/12/22 Catherine Cm MD [address] [facility] [address] [place], [place] [address] Assigned Heart and Vascular Provider 11/13/22 05/27/23 Sydnie Martinez RN Personal Advocate & Liaison (PAL) Family Medicine 03/28/23 07/31/23 Alfonso Renteria MD 5775 [facility] 200 [place] [address] Assigned Neuroscience Provider 04/02/23 Cheng Todd PA-C [address] [place] [address] [id number] Assigned PCP 04/30/23 07/15/23 Radha Lomeli APRN CNP 6405 [facility] [address] [place] [address] Assigned Heart and Vascular Provider 05/28/23 Jelena David OD [address] [facility] [address] MD Ophthalmology 06/15/23 Pao Joseph, VJ Personal Advocate & Liaison (PAL) Nurse 08/01/23 11/07/23 Esha Grimm PA-C [address] [place] [phone] Assigned PCP 07/16/23 Valery Veronica PA-C [address] [place] [address] 909035 Physician Residential Program Coordinator Dermatology 09/19/23 Rey Tay MD [address] [place] [address] 461575 Gastroenterology 09/20/23 Rocky Zepeda DO [address] [place] [address] 572905 Physician Gastroenterology 09/20/23 Philip Dumont MD [address] [place] [address] 289475 Physician Ophthalmology 09/22/23 Meredith Carrera PA-C [address] [place] [address] Assigned Gastroenterology Provider 11/01/23 Neil Kent MD [address] [address] Dermatology 11/02/23 [place] [address] [address] Neurological Surgery 12/26/23 Audrey Waite PA-C 500 [place] [address] Physician Residential Program Coordinator Dermatology 02/28/24 Valery Veronica PA-C 685129 [place], [place] [address] Physician Residential Program Coordinator Dermatology 04/10/[address] [facility]5 [place], [place] 93642[address] Assigned Rheumatology Provider 07/02/24 documented as of this encounter
--- OUTSIDE RECORDS SUMMARY | 2024-08-28 18:27 | XMS_ITS | Encounter Summary ---
Author Organization [facility] Address [address] [place] [address] Care Team Providers Care Lot Attendant Name Role Phone Lita Oseguera Unavailable Unavailable Marija Edgar APRN RAPID TRANSIT OPERATOR Primary Care Provider + Marija Edgar APRN RAPID TRANSIT OPERATOR Unavailable [phone] Keisha Dotson MD Unavailable Diana Desir [facility] Unavailable [phone] Rain Galaviz PA-C Unavailable Tavia Wyatt MD Unavailable Erica Farrell APRN RAPID TRANSIT OPERATOR Unavailable Rich Barrett MD Unavailable [phone] Neil Kent MD Unavailable Diana Desir [facility] Unavailable Jelena David OD Unavailable Livan Sharif MD Unavailable Catherine Cm MD Unavailable + Valery Veronica PA-C Unavailable Catherine Cm MD Unavailable + Johnny Murillo MD Unavailable [phone] Brea Quinn VOLTMETER OPERATOR RAPID TRANSIT OPERATOR Unavailable [phone] Brea Quinn VOLTMETER OPERATOR RAPID TRANSIT OPERATOR Unavailable [phone] Jose Francisco Johnson MD Unavailable Livan Sharif MD Unavailable Catherine Cm MD Unavailable + Sydnie Martinez RN Unavailable Unavailable Alfonso Renteria MD Unavailable Esha Grimm PA-C Primary Care Provider Cheng Todd PA-C Unavailable [phone] Radha Lomeli VOLTMETER OPERATOR RAPID TRANSIT OPERATOR Unavailable Jelena David OD Unavailable Pao Joseph RN Unavailable Unavailable Esha Grimm PA-C Unavailable [phone] Valery Veronica PA-C Unavailable Rey Tay MD Unavailable Rocky Zepeda DO Unavailable Philip Dumont MD Unavailable Meredith Carrera PA-C Unavailable Neil Kent MD Unavailable Juan Pablo Emmanuel MD Unavailable [phone] Audrey Waite PA-C Unavailable Valery Veronica PA-C Unavailable Herminia Hatch MD Unavailable Reason for Visit * Reason Onset Date Comments Call Back 09/21/2022 Change of provid er request Encounter Details Date Type Department Care Team (Late st Contact Info) Description 09/21/2022 Telephone [facility] [address], [address] [place] [address] Keisha Dotson MD [address] [place] [address] Call Back (Change of provider request) Social [...] How often do you attend gnosticism or mosque serv ices? Never 09/22/2021 Do [...] Answer Date Recorded PHQ-2 Score 2 08/27/2022 [facility] [...] in a retirement (including now)? No 09/22/2021 [place] Depression Scale Answer Date Recorded [place] Depression Score 5 01/14/2021 Last EPDS Self Harm Result Not on file 01/14 Education Answer Date Recorded What is the highest level of school you have completed or the highest degree you have received? 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 LAPPER Gender Identity Female 03/02/2021 5:45 PM CDT [...] Aleyda Guan - 09/21/2022 10:47 AM CDT [facility] Call Center Phone Message May a detailed message be left on voicemail: yes Reason for Call: Other: Change of provider request, Pt would like to be seen with another provider. Please call Pt back at [phone] to scheduled or advise. Action Taken: Message routed to: [facility] Travel Screening: Not Applicable documented in this encounter Plan of Treatment Upcoming Encounters Date Type Department Care Team (Late st Contact Info) Description 10/23/2024 9:30 AM CDT Office Visit [facility] [place] [address] [place] [address], [address] [place] [address] [place] [address] [place] [address] Johnny Penn MD [address] [facility] [address] [place] [address] documented as [...] Depression Total Score: 5 08/27/19 1:14 PM LAPPER documented as of this encounter Care Teams Lot Attendant Relationship Specialty Start Date End Date Marija Edgar APRN RAPID TRANSIT OPERATOR PCP - General Nurse Practitioner 04/30/20 04/14/23 Esha Grimm PA-C [address] [place] [address] PCP - General Family Medicine 05/04/23 Lita Oseguera Personal Advocate & Liaison (PAL) 02/28/20 03/27/23 Marija Edgar APRN RAPID TRANSIT OPERATOR Assigned PCP 06/08/20 04/29/23 Keisha Dotson MD [address] [place], [place] 945495 Assigned Neuroscience Provider 06/04/20 04/01/23 Diana Desir [facility] [address] [place] [address] Pharmacist Pharmacist 04/17/21 Rain Galaviz PA-C [address] [place] [address] [address] [place] [address] Physician Risk Management Consultant Dermatology 04/28/21 Tavia Wyatt MD [address] [place] [address] [address] [place] [address] Dermatology 07/14/21 Erica Farrell APRN RAPID TRANSIT OPERATOR [address] [place] [address] Nurse Practitioner Cardiovascular Disease 09/09/21 Rich Barrett MD [address] 4749[address] Physician Ophthalmology 01/21/22 Neil Kent MD 500 [place], [place] [address] Dermatology 02/24/22 Diana Desir, [facility] [address] [place] [address] Assigned MTM Pharmacist 04/07/22 Jelena David OD [address] [facility] [address] Assigned Surgical Provider 05/08/22 10/08/22 Livan Sharif MD [address] [place] [address] Cardiovascular Disease 05/14/22 Catherine Cm MD [address] [place] [address] Cardiovascular Disease 07/21/22 Valery Veronica, PAUcheC [address]09 [place] [address] Physician Risk Management Consultant Dermatology 07/21/22 Catherine Cm MD [address] [facility] [address] [place] 230405 Assigned Heart and Vascular Provider 07/24/22 11/05/22 Johnny Murillo MD [address] [place] [address] 234924 Assigned Musculoskeletal Provider 08/14/22 10/08/22 Brea Quinn APRN RAPID TRANSIT OPERATOR [address] [place] [address] 367565 Nurse Practitioner Dermatology 09/21/22 Brea Quinn APRN RAPID TRANSIT OPERATOR [address] [place] [address] [place] [address] Assigned Surgical Provider 10/09/22 05/01/24 [place] [address] [place] [address] [place] [address] Assigned Musculoskeletal Provider 10/09/22 05/01/24 Livan Sharif MD [address], [facility] [address] [place] 545[address] Assigned Heart and Vascular Provider 11/06/22 11/12/22 Catherine Cm MD [address] [place] 2[address]45 Assigned Heart and Vascular Provider 11/13/22 05/27/23 Sydnie Martinez RN Personal Advocate & Liaison (PAL) Family Medicine 03/28/23 07/31/23 Alfonso Renteria MD [address] [facility] [address] [place], [place] 615646 Assigned Neuroscience Provider 04/02/23 Cheng Todd PA-C [address] [place] [address] [id number] Assigned PCP 04/30/23 07/15/23 Radha Lomeli, ARLENE RAPID TRANSIT OPERATOR [address] [place] 0[address]165 Assigned Heart and Vascular Provider 05/28/23 Jelena David OD [address] [facility] [address] Ophthalmology 06/15/23 Pao Joseph, VJ Personal Advocate & Liaison (PAL) Nurse 08/01/23 11/07/23 Esha Grimm PA-C [address] [place] [phone] Assigned PCP 07/16/23 Valery Veronica PA-C [address] [place], [place] 468[address] Physician Risk Management Consultant Dermatology 09/19/23 Rey Tay MD [address] [place] [address] MD Gastroenterology 09/20/23 Rocky Zepeda DO 500 [place] [address] Physician Gastroenterology 09/20/23 Philip Dumont MD [address] [place], [place] 3679[address] Physician Ophthalmology 09/22/23 Meredith Carrera PA-C 909 [place] [address] Assigned Gastroenterology Provider 11/01/23 Neil Kent MD [address] [place] [address] Dermatology 11/02/23 [place] [address] [facility] [place] [address] Neurological Surgery 12/26/23 Audrey Waite PA-C 500 [place] [address] Physician Risk Management Consultant Dermatology 02/28/24 Valery Veronica PA-C [address]75 [place] [address] Physician Risk Management Consultant Dermatology 04/10/24 Herminia Hatch MD [facility]5 [place], [place] [address] Assigned Rheumatology Provider 07/02/24 documented as of this encounter
--- OUTSIDE RECORDS SUMMARY | 2024-08-28 18:27 | XMS_ITS | Encounter Summary ---
Author Organization [facility] Address [address] [place] [address] Care Team Providers Care Winding Lathe Operator Name Role Phone Lita Oseguera Unavailable Unavailable Marija Edgar OPEN END SPINNING OPERATOR MANAGER OF LOSS PREVENTION OPERATIONS Primary Care Provider + Chanelle Mccann OPEN END SPINNING OPERATOR CNM Unavailab le Marija Edgar APRN MANAGER OF LOSS PREVENTION OPERATIONS Unavailable [phone] Mynor Broussard MD Unavailable [phone] Keisha Dotson MD Unavailable [phone] Galo Burrell MD Unavailable Unavailable Diana Desir [facility] Unavailable Rain Galaviz PA-C Unavailable Summer Lara MD Unavailable [phone] Summer Lara MD Unavailable [phone] Summer Lara MD Unavailable [phone] Tavia Wyatt MD Unavailable Johnny Murillo MD Unavailable Erica Farrell OPEN END SPINNING OPERATOR MANAGER OF LOSS PREVENTION OPERATIONS Unavailable Teresita Bean [facility] Unavailable Tavia Wyatt MD Unavailable DesirDiana [facility] Unavailable [phone] Rich Barrett MD Unavailable [phone] Neil Kent MD Unavailable Roney StoryM Unavailable [phone] Erica Farrell APRN MANAGER OF LOSS PREVENTION OPERATIONS Unavailable + Diana Desir [facility] Unavailable [phone] Jelena David OD Unavailable Galo Burrell MD Unavailable Unavailable Livan Sharif MD Unavailable + Livan Sharif MD Unavailable + Catherine Cm MD Unavailable + Valery VeronicaC Unavailable [phone] Catherine Cm MD Unavailable + Johnny Murillo MD Unavailable [phone] Brea Quinn OPEN END SPINNING OPERATOR MANAGER OF LOSS PREVENTION OPERATIONS Unavailable [phone] Brea Quinn OPEN END SPINNING OPERATOR MANAGER OF LOSS PREVENTION OPERATIONS Unavailable [phone] Jose Francisco Johnson MD Unavailable Livan Sharif MD Unavailable + Catherine Cm MD Unavailable + Sydnie Martinez RN Unavailable Unavailable Alfonso Renteria MD Unavailable [phone] Esha GrimmC Primary Care Provider Cheng Todd PA-C Unavailable [phone] Radha Lomeli APRN MANAGER OF LOSS PREVENTION OPERATIONS Unavailable [phone] Jelena David OD Unavailable Jake, Pao RN Unavailable Unavailable Alfa, Esha M PA-C Unavailable [phone] Valery Veronica PA-C Unavailable [phone] Rey Tay MD Unavailable Duane Rockyanne [facility] Unavailable Philip Dumont MD Unavailable [phone] Meredith Carrera PA-C Unavailable [phone] Neil Kent MD Unavailable Juan Pablo Emmanuel MD Unavailable [phone] Audrey Waite PA-C Unavailable [phone] Valery Veronica PA-C Unavailable [phone] Herminia Hatch MD Unavailable Encounter Details Date Type Department Care Team (Late st Contact Info) Description 05/05/2021 [facility] Medical Advice [address] [address] Lauren Gan RN Social History [...] Answer Date Recorded PHQ-2 Score 0 04/02/2021 [facility] - [...] in a longterm (including now)? No 08/11/2020 [place] Depression Scale Answer Date Recorded [place] Depression Score 5 01/14/2021 Last EPDS Self Harm Result Not on file 01/14 Education Answer Date Recorded What is the highest level of school you have completed or the highest degree you have received? 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 HOME THEATER SPECIALIST Gender Identity Female 03/02/2021 5:45 PM [...] Visit [facility] Neurology [address], [address] [place] [address] [place] [address] [place] [address] IsamarJohnny mead MD [address] [place] [address] documented as of this encounter Visit Diagnoses Not on filedocumented in this encounter Additional Health Concerns Infection Onset Date Last Indicated Resolved Time Rule Out COVID-19 05/11/2021 05/11/2021 05/13/2021 10:18 AM CDT Rule Out COVID-19 07/13/2021 07/13/2021 07/14/2021 3:04 PM HOME THEATER SPECIALIST Rule Out COVID-19 07/18/2021 07/18/2021 07/20/2021 1:56 PM HOME THEATER SPECIALIST COVID-19 07/18/2021 07/18/2021 08/08/2021 11:3 9 PM HOME THEATER SPECIALIST Rule Out COVID-19 12/18/2021 12/18/2021 12/19/2021 11:34 AM CDT Rule Out COVID-19 02/24/2022 02/24/2022 02/25/2022 1:08 PM CDT Rule Out COVID-19 04/26/2022 04/26/2022 04/26/2022 6:47 AM CDT Rule Out COVID-19 05/17/2022 05/17/2022 05/17/2022 10:20 PM HOME THEATER SPECIALIST Rule Out COVID-19 06/09/2022 06/09/2022 06/09/2022 9:35 AM HOME THEATER SPECIALIST COVID-19 06/09/2022 06/09/2022 06/30/2022 11:4 1 PM HOME THEATER SPECIALIST Rule Out COVID-19 11/10/2022 11/10/2022 11/11/2022 12:17 PM CDT Rule Out COVID-19 03/07/2023 03/07/2023 03/07/2023 1:20 PM CDT Rule Out COVID-19 12/26/2023 12/26/2023 12/26/2023 9:50 AM CDT Rule Out COVID-19 04/09/2024 04/09/2024 04/10/2024 6:48 PM CDT Assessment Noted Time PHQ-9 Depression Total Score: 2 04/02/20 10:19 AM CDT documented as of this encounter Care Teams Winding Lathe Operator Relationship Specialty Start Date End Date Marija Edgar APRN MANAGER OF LOSS PREVENTION OPERATIONS PCP - General Nurse Practitioner 04/30/20 04/14/23 Esha Grimm PA-C [address] [place] [phone] PCP - General Family Medicine 05/04/23 Lita Oseguera Personal Advocate & Liaison (PAL) 02/28/20 03/27/23 Chanelle Mccann APRN CNM [address] [facility] 200 [place] [address] Assigned OBGYN Provider 05/02/2005/09 Marija Edgar APRN MANAGER OF LOSS PREVENTION OPERATIONS Assigned PCP 06/08/20 04/29/23 Mynor Broussard MD [address] [facility] 500 [place] [address] Assigned Surgical Provider 06/01/20 11/28/21 Keisha Dotson MD 909 [place] [address] Assigned Neuroscience Provider 06/04/20 04/01/23 Galo Burrell MD Assigned Heart and Vascular Provider 10/05/20 04/02/22 Diana Desir, [facility] 3033 [place], [place] 189226 Pharmacist Pharmacist 04/17/21 Rain Galaviz PA-C [address] [place] [address] [place] [address] Physician Women Designer Dermatology 04/28/21 Summer Lara MD [address] [place] [address] Assigned OBGYN Provider 05/10/2105/23 Summer Lara MD [address] [place] [address] 918704 Assigned OBGYN Provider 05/31/21 Summer Lara MD [address] [place] [address] Assigned OBGYN Provider 05/24/2105/30 Tavia Wyatt MD [address] [place] [address] Dermatology 07/14/21 Johnny Murillo MD [facility] [address] [place] [address] Assigned Musculoskeletal Provider 08/30/21 03/17/22 Erica Farrell APRN MANAGER OF LOSS PREVENTION OPERATIONS [address] [facility] [address] [place] [address] Nurse Practitioner Cardiovascular Disease 09/09/21 Teresita Bean, [facility] [address] [phone] Pharmacist Pharmacist 09/24/21 09/29/21 Tavia Wyatt MD [address] [place] [address] Assigned Surgical Provider 11/29/21 05/07/22 Diana Desir [facility] [address] [place] [address] Assigned MTM Pharmacist 01/02/22 Rich Barrett MD [address] [address] Physician Ophthalmology 01/21/22 Neil Kent MD 500 [place] [address] Dermatology 02/24/22 Roney Story DPM [address] [facility] [address] [place] [address] Assigned Musculoskeletal Provider 03/20/22 08/13/22 Erica Farrell APRN MANAGER OF LOSS PREVENTION OPERATIONS 1700 [place] [address] Assigned Heart and Vascular Provider 04/03/22 04/16/22 Diana Desir [facility] [place] [address] Assigned MTM Pharmacist 04/07/22 Jelena David OD [address] [facility] [place] [address] Assigned Surgical Provider 05/08/22 10/08/22 Galo Burrell MD Assigned Heart and Vascular Provider 04/17/22 06/11/22 Livan Sahrif MD [address], [address] [place] [address] Cardiovascular Disease 05/14/22 Livan Sharif MD [address], [address] [place] [address] Assigned Heart and Vascular Provider 06/12/22 07/23/22 Catherine Cm MD [address] [place] [address] Cardiovascular Disease 07/21/22 Valery Veronica, PAUcheC [address] [place] [address] 968075 Physician Women Designer Dermatology 07/21/22 Catherine Cm MD [address] [place], [place] 528[address] Assigned Heart and Vascular Provider 07/24/22 11/05/22 Johnny Murillo MD [facility] [address] 208574 Assigned Musculoskeletal Provider 08/14/22 10/08/22 Brea Quinn APRN MANAGER OF LOSS PREVENTION OPERATIONS [address] [place] [address] 273745 Nurse Practitioner Dermatology 09/21/22 Brea Quinn, OPEN END SPINNING OPERATOR MANAGER OF LOSS PREVENTION OPERATIONS [address] [place] [address] Assigned Surgical Provider 10/09/22 05/01/24 [place] [address] [address] Assigned Musculoskeletal Provider 10/09/22 05/01/24 Livan Sharif MD [address] [place] [address] [place] [address] Assigned Heart and Vascular Provider 11/06/22 11/12/22 Catherine Cm MD [address] [facility] [place] [address] Assigned Heart and Vascular Provider 11/13/22 05/27/23 Sydnie Martinez RN Personal Advocate & Liaison (PAL) Family Medicine 03/28/23 07/31/23 Alfonso Renteria MD [address] [facility] 200 [place] [address] Assigned Neuroscience Provider 04/02/23 Cheng Todd PA-C [address] [place] [address] Assigned PCP 04/30/23 07/15/23 Radha Lomeli, ARLENE MANAGER OF LOSS PREVENTION OPERATIONS [address] [place] 790845 Assigned Heart and Vascular Provider 05/28/23 Jelena David OD [address] [facility] [place] [address] MD Ophthalmology 06/15/23 Pao Joseph, RN Personal Advocate & Liaison (PAL) Nurse 08/01/23 11/07/23 Esha Grimm PA-C [address] [place] [phone] Assigned PCP 07/16/23 Valery Veronica PA-C [address] [place] [address] 029645 Physician Women Designer Dermatology 09/19/23 Rey Tay MD [address] [place] [address] 168875 MD Gastroenterology 09/20/23 Rocky Zepeda DO [address] [place] [address] 260125 Physician Gastroenterology 09/20/23 Philip Dumont MD [address] [place] [address] 409295 Physician Ophthalmology 09/22/23 Meredith Carrera PA-C [address] [place] [address] 260905 Assigned Gastroenterology Provider 11/01/23 Neil Kent MD [address] [address] Dermatology 11/02/23 [place] [address] [place] [address] Neurological Surgery 12/26/23 Audrey Waite PA-C 500 [place] [address] Physician Women Designer Dermatology 02/28/24 Valery Veronica PA-C [address] [place] [address] Physician Women Designer Dermatology 04/10/24 Herminia Hatch MD [address] [place] [address] Assigned Rheumatology Provider 07/02/24 documented as of this encounter
--- OUTSIDE RECORDS SUMMARY | 2024-08-28 18:27 | XMS_ITS | Encounter Summary ---
Author Organization [facility] Address [address] [place] [address] Care Team Providers Care Vortex Operator Name Role Phone Lita Oseguera Unavailable Unavailable Marija Edgar APRN BREAKER MECHANIC Primary Care Provider + Marija Edgar APRN BREAKER MECHANIC Unavailable [phone] Keisha Dotson MD Unavailable [phone] Diana Desir [facility] Unavailable [phone] Rain Galaviz PA-C Unavailable [phone] Tavia Wyatt MD Unavailable Erica Farrell APRN BREAKER MECHANIC Unavailable Rich Barrett MD Unavailable [phone] Neil Kent MD Unavailable Diana Desir [facility] Unavailable Jelena David OD Unavailable Livan Sharif MD Unavailable Catherine Cm MD Unavailable + Valery Veronica PA-C Unavailable Catherine Cm MD Unavailable + Johnny Murillo MD Unavailable [phone] Brea Quinn JACK SPINNER BREAKER MECHANIC Unavailable [phone] Brea Quinn JACK SPINNER BREAKER MECHANIC Unavailable [phone] Jose Francisco Johnson MD Unavailable Livan Sharif MD Unavailable Catherine Cm MD Unavailable + Sydnie Martinez RN Unavailable Unavailable Alfonso Renteria MD Unavailable Esha Grimm PA-C Primary Care Provider Cheng Todd PA-C Unavailable [phone] Radha Lomeli JACK SPINNER BREAKER MECHANIC Unavailable Jelena David OD Unavailable Pao Joseph RN Unavailable Unavailable Esha Grimm PA-C Unavailable [phone] Valery Veronica PA-C Unavailable Rey Tay MD Unavailable Rocky Zepeda DO Unavailable Philip Dumont MD Unavailable [phone] Meredith Carrera PA-C Unavailable Neil Kent MD Unavailable Juan Pablo Emmanuel MD Unavailable [phone] Audrey Waite PA-C Unavailable Valery Veronica PA-C Unavailable [phone] Herminia Hatch MD Unavailable Encounter Details Date Type Department Care Team (Late st Contact Info) Description 10/06/2022 [facility] [place], [place] Medical Advice [address] [phone] Brea Quinn, JACK SPINNER BREAKER MECHANIC [address] [facility] [place] [address] Social History Tobacco Use Types Packs/Day Years [...] How often do you attend yarsanism or religion serv ices? Never 09/22/2021 Do [...] points; Administer PHQ-9 if positive 1 10/[facility] - [...] in a snf (including now)? No 09/22/2021 [place] Depression Scale Answer Date Recorded [place] Depression Score 5 01/14/2021 Last EPDS Self Harm Result Not on file 01/14 Education Answer Date Recorded What is the highest level of school you have completed or the highest degree you have received? 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 LOAN SUPERVISOR Gender Identity Female 03/02/2021 5:45 PM [...] Visit [facility] Neurology [address], [address] [place] [address] [place] [address] [place], [place] [id number] Johnny Penn MD [address] [place] [address] documented as of this encounter Visit Diagnoses [...] Depression Total Score: 5 08/27/19 1:14 PM LOAN SUPERVISOR documented as of this encounter Care Teams Vortex Operator Relationship Specialty Start Date End Date Marija Edgar APRN BREAKER MECHANIC PCP - General Nurse Practitioner 04/30/20 04/14/23 Esha Grimm PA-C [address] [place] [address] PCP - General Family Medicine 05/04/23 Lita Oseguera Personal Advocate & Liaison (PAL) 02/28/20 03/27/23 Marija Edgar APRN BREAKER MECHANIC Assigned PCP 06/08/20 04/29/23 Keisha Dotson MD [address] [place], [place] 1427[address] Assigned Neuroscience Provider 06/04/20 04/01/23 Diana Desir, [facility] [address] [place] [address] Pharmacist Pharmacist 04/17/21 Rain Galaviz PA-C [address] [place] [address] [address] [place] [address] Physician Material Liaison Dermatology 04/28/21 Tavia Wyatt MD [address] [place] [address] [place] [address] Dermatology 07/14/21 Erica Farrell APRN BREAKER MECHANIC 6405 [facility] L[address] [facility]00 [place] [address] Nurse Practitioner Cardiovascular Disease 09/09/21 Rich Barrett MD 516 [facility] [address] [place] [address] Physician Ophthalmology 01/21/22 Neil Kent MD 500 [place] [address] MD Dermatology 02/24/22 Diana Desir, [facility] [address] [place] [address] Assigned MTM Pharmacist 04/07/22 [place] [address] [place] [address] [place] [address] Assigned Surgical Provider 05/08/22 10/08/22 Livan Sharif MD [address], [place] [address] [place] [address] Cardiovascular Disease 05/14/22 Catherine Cm MD [address] [place] [address] [place] [address] Cardiovascular Disease 07/21/22 Valery Veronica, PA-C 909 [place] [address] Physician Material Liaison Dermatology 07/21/22 Catherine Cm MD [address] [facility] [place] [address] Assigned Heart and Vascular Provider 07/24/22 11/05/22 Johnny Murillo MD [facility] [address] [place] [address] Assigned Musculoskeletal Provider 08/14/22 10/08/22 Brea Quinn APRN BREAKER MECHANIC 500 [place] [address] Nurse Practitioner Dermatology 09/21/22 Brea Quinn APRN BREAKER MECHANIC 6401 [place] [address] Assigned Surgical Provider 10/09/22 05/01/24 [place] [address] [facility] 300 [place] [address] Assigned Musculoskeletal Provider 10/09/22 05/01/24 Livan Sharif MD 6405 [facility] LISETH , [facility] [address] [place] [address] Assigned Heart and Vascular Provider 11/06/22 11/12/22 Catherine Cm MD 6405 [facility] [address] [place] [address] Assigned Heart and Vascular Provider 11/13/22 05/27/23 Sydnie Martinez RN Personal Advocate & Liaison (PAL) Family Medicine 03/28/23 07/31/23 Alfonso Renteria MD 5775 [facility] 200 [place] [address] Assigned Neuroscience Provider 04/02/23 Cheng Todd PA-C [address] [place] [address] Assigned PCP 04/30/23 07/15/23 Radha Lomeli APRN BREAKER MECHANIC 6405 [facility] [address] [place] [address] Assigned Heart and Vascular Provider 05/28/23 [place] David OD [address] [facility] [place] [address] MD Ophthalmology 06/15/23 Pao Joseph, VJ Personal Advocate & Liaison (PAL) Nurse 08/01/23 11/07/23 Esha Grimm PA-C [address] [place] [address] Assigned PCP 07/16/23 Valery Veronica PA-C [address] [place] [address] 406575 Physician Material Liaison Dermatology 09/19/23 Rey Tay MD [address] [place] [address]25 Gastroenterology 09/20/23 Rocky Zepeda DO [address] [place] [address] 424075 Physician Gastroenterology 09/20/23 Philip Dumont MD [address] [place] [address] 125825 Physician Ophthalmology 09/22/23 Meredith Carrera PA-C 909 [place] [address] Assigned Gastroenterology Provider 11/01/23 Neil Kent MD [address] 650070 Dermatology 11/02/23 [place] [address] [place] [address] [phone] Neurological Surgery 12/26/23 Audrey Waite PA-C [address] [place] [address] Physician Material Liaison Dermatology 02/28/24 Valery Veronica PA-C [address] [address] Physician Material Liaison Dermatology 04/10/24 Herminia Hatch MD [facility]5 [place], [place] [address] Assigned Rheumatology Provider 07/02/24 documented as of this encounter
--- OUTSIDE RECORDS SUMMARY | 2024-08-28 18:27 | XMS_ITS | Encounter Summary ---
Author Organization [facility] Address [address] [place] [address] Care Team Providers Care Tax Technician Name Role Phone Lita Oseguera Unavailable Unavailable Marija Edgar FINANCIAL ASSOCIATE DENTAL EQUIPMENT REPAIRER Primary Care Provider + Chanelle Mccann FINANCIAL ASSOCIATE CNM Unavailab le Marija Edgar APRN DENTAL EQUIPMENT REPAIRER Unavailable Mynor Broussard MD Unavailable [phone] Keisha Dotson MD Unavailable Galo Burrell MD Unavailable Unavailable Diana Desir [facility] Unavailable Rain Galaviz PA-C Unavailable [phone] Summer Lara MD Unavailable [phone] Summer Lara MD Unavailable [phone] Summer Lara MD Unavailable [phone] Tavia Wyatt MD Unavailable Johnny Murillo MD Unavailable [phone] Erica Farrell FINANCIAL ASSOCIATE DENTAL EQUIPMENT REPAIRER Unavailable Teresita Bean [facility] Unavailable [phone] Tavia Wyatt MD Unavailable DesirDiana [facility] Unavailable [phone] Rich Barrett MD Unavailable [phone] Neil Kent MD Unavailable Roney StoryM Unavailable [phone] Erica Farrell APRN DENTAL EQUIPMENT REPAIRER Unavailable + Diana Desir [facility] Unavailable [phone] Jelena David OD Unavailable [phone] Galo Burrell MD Unavailable Unavailable Livan Sharif MD Unavailable + Livan Sharif MD Unavailable + Catherine Cm MD Unavailable + Valery VeronicaC Unavailable [phone] Catherine Cm MD Unavailable + Johnny Murillo MD Unavailable [phone] Brea Quinn FINANCIAL ASSOCIATE DENTAL EQUIPMENT REPAIRER Unavailable [phone] Brea Quinn FINANCIAL ASSOCIATE DENTAL EQUIPMENT REPAIRER Unavailable [phone] Jose Francisco Johnson MD Unavailable Livan Sharif MD Unavailable + Catherine Cm MD Unavailable + Sdynie Martinez RN Unavailable Unavailable Alfonso Renteria MD Unavailable [phone] Esha GrimmC Primary Care Provider Cheng Todd PA-C Unavailable [phone] Radha Lomeli APRN DENTAL EQUIPMENT REPAIRER Unavailable [phone] Jelena David OD Unavailable [phone] Jake, Pao RN Unavailable Unavailable Alfa, Esha M PA-C Unavailable [phone] Valery Veronica PA-C Unavailable [phone] Rey Tay MD Unavailable Duane Rockyanne STEVENS Unavailable Philip Dumont MD Unavailable [phone] Meredith Carrera PA-C Unavailable [phone] Neil Kent MD Unavailable Juan Pablo Emmanuel MD Unavailable [phone] Audrey Waite PA-C Unavailable [phone] Valery Veronica PA-C Unavailable [phone] Herminia Hatch MD Unavailable Encounter Details Date Type Department Care Team (Late st Contact Info) Description 04/28/2021 [facility] Medical Advice [address] [address] Lauren Gan RN Social History [...] in a mcfp (including now)? No 08/11/2020 [place] Depression Scale Answer Date Recorded [place] Depression Score 5 01/14/2021 Last EPDS Self Harm Result Not on file 01/14 Education Answer Date Recorded What is the highest level of school you have completed or the highest degree you have received? 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 MANAGEMENT PROFESSIONALS Gender Identity Female 03/02/2021 5:45 PM CDT [...] CDT Office Visit [facility] Neurology [address], [address] [place] [address] [place] [address] [place] [address] IsamarJohnny farnsworth MD [address] [place] [address] documented as of this encounter Visit Diagnoses Not on filedocumented in this encounter Additional Health Concerns Infection Onset Date Last Indicated Resolved Time Rule Out COVID-19 05/11/2021 05/11/2021 05/13/2021 10:18 AM CDT Rule Out COVID-19 07/13/2021 07/13/2021 07/14/2021 3:04 PM [employer]NAGEMENT [employer] Rule Out COVID-19 07/18/2021 07/18/2021 07/20/2021 1:56 PM [employer]NA[employer]EMENT [employer] COVID-19 07/18/2021 07/18/2021 08/08/2021 11:3 9 PM [employer]NA[employer] Rule Out COVID-19 12/18/2021 12/18/2021 12/19/2021 11:34 AM CDT Rule Out COVID-19 02/24/2022 02/24/2022 02/25/2022 1:08 PM CDT Rule Out COVID-19 04/26/2022 04/26/2022 04/26/2022 6:47 AM CDT Rule Out COVID-19 05/17/2022 05/17/2022 05/17/2022 10:20 PM [employer]NA[employer] Rule Out COVID-19 06/09/2022 06/09/2022 06/09/2022 9:35 AM MANAGEMENT PROFESSION[employer] COVID-19 06/09/2022 06/09/2022 06/30/2022 11:4 1 PM [employer]NA[employer]ESSION[employer] Rule Out COVID-19 11/10/2022 11/10/2022 11/11/2022 12:17 PM CDT Rule Out COVID-19 03/07/2023 03/07/2023 03/07/2023 1:20 PM CDT Rule Out COVID-19 12/26/2023 12/26/2023 12/26/2023 9:50 AM CDT Rule Out COVID-19 04/09/2024 04/09/2024 04/10/2024 6:48 PM CDT Assessment Noted Time PHQ-9 Depression Total Score: 2 04/02/20 10:19 AM CDT documented as of this encounter Care Teams Tax Technician Relationship Specialty Start Date End Date Marija Edgar APRN DENTAL EQUIPMENT REPAIRER PCP - General Nurse Practitioner 04/30/20 04/14/23 Esha Grimm PA-C [address] [place] [phone] PCP - General Family Medicine 05/04/23 Lita Oseguera Personal Advocate & Liaison (PAL) 02/28/20 03/27/23 Chanelle Mccann APRN [place]NAdam [address] [facility] 200 [place] [address] Assigned OBGYN Provider 05/02/2005/09 Marija Edgar APRN DENTAL EQUIPMENT REPAIRER Assigned PCP 06/08/20 04/29/23 Mynor Broussard MD 6363 [facility] 500 [place] [address] Assigned Surgical Provider 06/01/20 11/28/21 Keisha Dotson MD 909 [place] [address] Assigned Neuroscience Provider 06/04/20 04/01/23 Galo Burrell MD Assigned Heart and Vascular Provider 10/05/20 04/02/22 Diana Desir, [facility] 3033 [place], [place] [address] Pharmacist Pharmacist 04/17/21 Rain Galaviz PA-C [address] [place] [address] [place] [address] Physician Dry Pan Charger Dermatology 04/28/21 Summer Lara MD [address] [place] [address] 598564 Assigned OBGYN Provider 05/10/2105/23 Summer Lara MD [address] [place] [address] 331284 Assigned OBGYN Provider 05/31/21 2 Summer Lara MD [address] [place] [address] Assigned OBGYN Provider 05/24/2105/30 Tavia Wyatt MD [address] [place] [address] 027194 Dermatology 07/14/21 Johnny Murillo MD [facility] [facility] [address] [place] [address] Assigned Musculoskeletal Provider 08/30/21 03/17/22 Erica Farrell APRN DENTAL EQUIPMENT REPAIRER 6405 [facility] [address] [place] [address] Nurse Practitioner Cardiovascular Disease 09/09/21 Teresita Bean, [facility] [address] [place] [phone] Pharmacist Pharmacist 09/24/21 09/29/21 Tavia Wyatt MD [address] [place] [address] Assigned Surgical Provider 11/29/21 05/07/22 Diana Desir [facility] 3033 [place] [address] Assigned MTM Pharmacist 01/02/22 Rich Barrett MD [address] [address] Physician Ophthalmology 01/21/22 Neil Kent MD 500 [place] [address] Dermatology 02/24/22 Roney Story DPM [address] [facility] 300 [place] [address] Assigned Musculoskeletal Provider 03/20/22 08/13/22 Erica Farrell APRN DENTAL EQUIPMENT REPAIRER 1700 [place] [address] Assigned Heart and Vascular Provider 04/03/22 04/16/22 Diana Desir [facility] [place] [address] Assigned MTM Pharmacist 04/07/22 Jelena David OD [address] [facility] [place] [address] Assigned Surgical Provider 05/08/22 10/08/22 Galo Burrell MD Assigned Heart and Vascular Provider 04/17/22 06/11/22 Livan Sharif MD [address] [place] [address] Cardiovascular Disease 05/14/22 Livan Sharif MD [address] [place] [address] Assigned Heart and Vascular Provider 06/12/22 07/23/22 Catherine Cm MD [address] [place], [place] [address] Cardiovascular Disease 07/21/22 Valery Veronica, PAUcheC [address] [place] [address] 386585 Physician Dry Pan Charger Dermatology 07/21/22 Catherine Cm MD [address] [place], [place] [address] Assigned Heart and Vascular Provider 07/24/22 11/05/22 Johnny Murillo MD [facility] 675734 Assigned Musculoskeletal Provider 08/14/22 10/08/22 Brea Quinn APRN DENTAL EQUIPMENT REPAIRER [address] [place] [address] 423705 Nurse Practitioner Dermatology 09/21/22 Brea Quinn, FINANCIAL ASSOCIATE DENTAL EQUIPMENT REPAIRER [address] [place] [address] Assigned Surgical Provider 10/09/22 05/01/24 [place] [address] [place] [address] [address] Assigned Musculoskeletal Provider 10/09/22 05/01/24 Livan Sharif MD [address] [facility] [address] [place] [address] Assigned Heart and Vascular Provider 11/06/22 11/12/22 Catherine Cm MD [address] [facility] [place] [address] Assigned Heart and Vascular Provider 11/13/22 05/27/23 Sydnie Martinez, RN Personal Advocate & Liaison (PAL) Family Medicine 03/28/23 07/31/23 Alfonso Renteria MD 5775 [facility] 200 [place] [address] Assigned Neuroscience Provider 04/02/23 Cheng Todd PA-C [address] [place] [address] Assigned PCP 04/30/23 07/15/23 Radha Lomeli APRN DENTAL EQUIPMENT REPAIRER [address] [place] [address] Assigned Heart and Vascular Provider 05/28/23 [place]elena David OD [address] [facility] [place] [address] MD Ophthalmology 06/15/23 Pao Joseph, RN Personal Advocate & Liaison (PAL) Nurse 08/01/23 11/07/23 Esha Grimm PA-C [address] [place] [phone] Assigned PCP 07/16/23 Valery Veronica PA-C [address] [place] [address] 891825 Physician Dry Pan Charger Dermatology 09/19/23 Rey Tay MD [address] [place] [address] 626225 MD Gastroenterology 09/20/23 Rocky Zepeda DO [address] [place] [address] 903805 Physician Gastroenterology 09/20/23 Philip Dumont MD [address] [place] [address] 178495 Physician Ophthalmology 09/22/23 Meredith Carrera PA-C [address] [place] [address] 675985 Assigned Gastroenterology Provider 11/01/23 Neil Kent MD [address] [address] Dermatology 11/02/23 [place] [address] [address] Neurological Surgery 12/26/23 Audrey Waiet PA-C 500 [place] [address] Physician Dry Pan Charger Dermatology 02/28/24 Valery Veronica PA-C [address] [place] [address] Physician Dry Pan Charger Dermatology 04/10/24 Herminia Hatch MD [address] [place] [address] Assigned Rheumatology Provider 07/02/24 documented as of this encounter
--- OUTSIDE RECORDS SUMMARY | 2024-08-28 18:27 | XMS_ITS | Encounter Summary ---
Author Organization [facility] Address [address] [place] [address] Care Team Providers Care Latex Thread Machine Operator Name Role Phone Lita Oseguera Unavailable Unavailable Marija Edgar MIXING ROLL OPERATOR CLEARING HAND Primary Care Provider + Chanelle Mccann MIXING ROLL OPERATOR CNM Unavailab le Marija Edgar APRN CLEARING HAND Unavailable [phone] Mynor Broussard MD Unavailable [phone] Keisha Dotson MD Unavailable Galo Burrell MD Unavailable Unavailable Diana Desir [facility] Unavailable [phone] Rain Galaviz PA-C Unavailable Summer Lara MD Unavailable [phone] Summer Lara MD Unavailable [phone] Summer Lara MD Unavailable [phone] Tavia Wyatt MD Unavailable Johnny Murillo MD Unavailable Erica Farrell MIXING ROLL OPERATOR CLEARING HAND Unavailable Teresita Bean [facility] Unavailable [phone] Tavia Wyatt MD Unavailable DesirDiana [facility] Unavailable [phone] Rich Barrett MD Unavailable [phone] Neil Kent MD Unavailable Roney StoryM Unavailable [phone] Erica Farrell APRN CLEARING HAND Unavailable + Diana Desir [facility] Unavailable [phone] Jelena David OD Unavailable [phone] Galo Burrell MD Unavailable Unavailable Livan Sharif MD Unavailable + Livan Sharif MD Unavailable + Catherine Cm MD Unavailable + Valery VeronicaC Unavailable [phone] Catherine Cm MD Unavailable + Johnny Murillo MD Unavailable [phone] Brea Quinn MIXING ROLL OPERATOR CLEARING HAND Unavailable [phone] Brea Quinn MIXING ROLL OPERATOR CLEARING HAND Unavailable [phone] Jose Francisco Johnson MD Unavailable Livan Sharif MD Unavailable + Catherine Cm MD Unavailable + Sydnie Martinez RN Unavailable Unavailable Alfonso Renteria MD Unavailable [phone] Esha GrimmC Primary Care Provider Cheng Todd PA-C Unavailable [phone] Radha Lomeli APRN CLEARING HAND Unavailable [phone] Jelena David OD Unavailable Jake, Pao RN Unavailable Unavailable Alfa, Esha M PA-C Unavailable [phone] Valery VeronicaC Unavailable Rey Tay MD Unavailable Duane Rockyanne STEVENS Unavailable Philip Dumont MD Unavailable [phone] Meredith Carrera PA-C Unavailable Neil Kent MD Unavailable Juan Pablo Emmanuel MD Unavailable [phone] Audrey Waite PA-C Unavailable [phone] Valery Veronica PA-C Unavailable [phone] Herminia Hatch MD Unavailable Encounter Details Date Type Department Care Team (Late st Contact Info) Description 04/17/2021 [facility] [address] [address] [place] [id number] [place] [address] Social History Tobacco Use Types Packs/Day Years [...] you attend [facility] or rastafarian services? More than 4 times [...] Answer Date Recorded PHQ-2 Score 0 04/02/2021 [facility] - [...] a senior living (including now)? No 08/11/2020 Emerson Depression Scale Answer Date Recorded Emerson Depression Score 5 01/14/2021 Last EPDS Self Harm Result Not on file 01/14 Education Answer Date Recorded What is the highest level of school you have completed or the highest degree you have received? 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 GROUP DIRECTOR Gender Identity Female 03/02/2021 5:45 PM [...] Office Visit [facility] Neurology [facility] - [address], [address] [place] [address] [place] [address] [place] [address] Johnny Penn MD [address] [place] [id number] documented as of this encounter Visit Diagnoses Not on filedocumented in this encounter Additional Health Concerns Infection Onset Date Last Indicated Resolved Time Rule Out COVID-19 05/11/2021 05/11/2021 05/13/2021 10:18 AM CDT Rule Out COVID-19 07/13/2021 07/13/2021 07/14/2021 3:04 PM GROUP DIRECTOR Rule Out COVID-19 07/18/2021 07/18/2021 07/20/2021 1:56 PM GROUP DIRECTOR COVID-19 07/18/2021 07/18/2021 08/08/2021 11:3 9 PM GROUP DIRECTOR Rule Out COVID-19 12/18/2021 12/18/2021 12/19/2021 11:34 AM CDT Rule Out COVID-19 02/24/2022 02/24/2022 02/25/2022 1:08 PM CDT Rule Out COVID-19 04/26/2022 04/26/2022 04/26/2022 6:47 AM CDT Rule Out COVID-19 05/17/2022 05/17/2022 05/17/2022 10:20 PM GROUP DIRECTOR Rule Out COVID-19 06/09/2022 06/09/2022 06/09/2022 9:35 AM GROUP DIRECTOR COVID-19 06/09/2022 06/09/2022 06/30/2022 11:4 1 PM GROUP DIRECTOR Rule Out COVID-19 11/10/2022 11/10/2022 11/11/2022 12:17 PM CDT Rule Out COVID-19 03/07/2023 03/07/2023 03/07/2023 1:20 PM CDT Rule Out COVID-19 12/26/2023 12/26/2023 12/26/2023 9:50 AM CDT Rule Out COVID-19 04/09/2024 04/09/2024 04/10/2024 6:48 PM CDT Assessment Noted Time PHQ-9 Depression Total Score: 2 04/02/20 10:19 AM CDT documented as of this encounter Care Teams Latex Thread Machine Operator Relationship Specialty Start Date End Date Marija Edgar APRN CLEARING HAND PCP - General Nurse Practitioner 04/30/20 04/14/23 Esha Grimm PA-C [address] [place] [address] PCP - General Family Medicine 05/04/23 Lita Oseugera Personal Advocate & Liaison (PAL) 02/28/20 03/27/23 [place] [address] [place] [address] 200 [place], [place] 200647 Assigned OBGYN Provider 05/02/2005/09 Marija Edgar APRN CLEARING HAND Assigned PCP 06/08/20 04/29/23 Mynor Broussard MD 6363 [facility] 500 [place], [place] 096005 Assigned Surgical Provider 06/01/20 11/28/21 Keisha Dotson MD 909 [place], [place] 956945 Assigned Neuroscience Provider 06/04/20 04/01/23 Galo Burrell MD Assigned Heart and Vascular Provider 10/05/20 04/02/22 [facility] 3033 [place] [address] Pharmacist Pharmacist 04/17/21 Rain Galaviz PA-C [address] [place] [address] [place] [address] Physician P D Driver Dermatology 04/28/21 Summer Lara MD [address] [place] [address] Assigned OBGYN Provider 05/10/2105/23 Summer Lara MD 606 [facility] [place] [address] Assigned OBGYN Provider 05/31/21 Summer Lara MD [address] [place] [address] [place] [address] Assigned OBGYN Provider 05/24/2105/30 Tavia Wyatt MD [address] [place] [address] [address] [place], [place] 128734 Dermatology 07/14/21 Johnny Murillo MD [address] [place] [address] Assigned Musculoskeletal Provider 08/30/21 03/17/22 Erica Farrell APRN CLEARING HAND 6405 [facility] [address] [place] [address] Nurse Practitioner Cardiovascular Disease 09/09/21 Teresita Bean [facility] [address] [place] [address] Pharmacist Pharmacist 09/24/21 09/29/21 Tavia Wyatt MD [address] [place] [address] Assigned Surgical Provider 11/29/21 05/07/22 [facility] [address] [place] [address] Assigned MTM Pharmacist 01/02/22 Rich Barrett MD [address] 688[address] Physician Ophthalmology 01/21/22 Neil Kent MD 500 [place], [place] [address] Dermatology 02/24/22 [place] [address] [facility] [address] [place] [address] Assigned Musculoskeletal Provider 03/20/22 08/13/22 Erica Farrell APRN CLEARING HAND 1700 [place] [address] Assigned Heart and Vascular Provider 04/03/22 04/16/22 Diana Desir, [facility] 3033 [place] [address] Assigned MTM Pharmacist 04/07/22 Jelena David OD [address] [facility] [place] [address] Assigned Surgical Provider 05/08/22 10/08/22 Galo Burrell MD Assigned Heart and Vascular Provider 04/17/22 06/11/22 Livan Sharif MD [address], [facility] [address] [place], [place] 026[address] Cardiovascular Disease 05/14/22 Livan Sharif MD [address], [facility] [address] [place], [place] 915295 Assigned Heart and Vascular Provider 06/12/22 07/23/22 Catherine Cm MD [address] [facility]00 [place], [place] 7747[address] Cardiovascular Disease 07/21/22 Valery Veronica, PA-C [address] [place] [address] Physician P D Driver Dermatology 07/21/22 Catherine Cm MD [address] [facility] [place] [address] Assigned Heart and Vascular Provider 07/24/22 11/05/22 Johnny Murillo MD [facility] [address] [address] Assigned Musculoskeletal Provider 08/14/22 10/08/22 Brea Quinn APRN CLEARING HAND [address] [place] [address] Nurse Practitioner Dermatology 09/21/22 Brea Quinn APRN CLEARING HAND [address] [facility] [place] [address] Assigned Surgical Provider 10/09/22 05/01/24 [place] [address] [facility] 300 [place] [address] Assigned Musculoskeletal Provider 10/09/22 05/01/24 Livan Sharif MD [address] [facility] [address] [place] [address] Assigned Heart and Vascular Provider 11/06/22 11/12/22 Catherine Cm MD [address] [facility]00 [place] 841385 Assigned Heart and Vascular Provider 11/13/22 05/27/23 Sydnie Martinez, VJ Personal Advocate & Liaison (PAL) Family Medicine 03/28/23 07/31/23 Alfonso Renteria MD 5775 [facility] 200 [place] [address] Assigned Neuroscience Provider 04/02/23 Cheng Todd PA-C [address] [place] [address] Assigned PCP 04/30/23 07/15/23 Radha Lomeli APRN CLEARING HAND [address] [place] [address] Assigned Heart and Vascular Provider 05/28/23 Jelena David OD [address] [facility] [address] MD Ophthalmology 06/15/23 Pao Joseph, RN Personal Advocate & Liaison (PAL) Nurse 08/01/23 11/07/23 Esha Grimm PA-C [address] [place] [phone] Assigned PCP 07/16/23 Valery Veronica PA-C [address] [place] [address] 811865 Physician P D Driver Dermatology 09/19/23 Rey Tay MD [address] [place] [address] 842585 Gastroenterology 09/20/23 Rocky Zepeda DO [address] [place] [address] 894225 Physician Gastroenterology 09/20/23 Philip Dumont MD [address] [place] [address] 359895 Physician Ophthalmology 09/22/23 Meredith Carrera PA-C [address] [place] [address] 601775 Assigned Gastroenterology Provider 11/01/23 Neil Kent MD [address] [place] [address] 938120 Dermatology 11/02/23 [place] [address] [address] Neurological Surgery 12/26/23 Audrey Waite PA-C 500 [place] [address] Physician P D Driver Dermatology 02/28/24 Valery Veronica PA-C [address] [place] [address] Physician P D Driver Dermatology 04/10/24 Herminia Hatch MD [facility]5 [place], [place] [address] Assigned Rheumatology Provider 07/02/24 documented as of this encounter
--- OUTSIDE RECORDS SUMMARY | 2024-08-28 18:27 | XMS_ITS | Encounter Summary ---
Author Organization [facility] Address [address] [place] [address] Care Team Providers Care Cane Furniture Maker Name Role Phone Lita Oseguera Unavailable Unavailable Marija Edgar PRODUCT MARKETING CONSULTANT CAREER SERVICES OFFICER Primary Care Provider + Chanelle Mccann PRODUCT MARKETING CONSULTANT CNM Unavailab le Marija Edgar APRN CAREER SERVICES OFFICER Unavailable Mynor Broussard MD Unavailable [phone] Keisha Dotson MD Unavailable Galo Burrell MD Unavailable Unavailable Diana Desir [facility] Unavailable Rain Galaviz PA-C Unavailable [phone] Summer Lara MD Unavailable [phone] Summer Lara MD Unavailable [phone] Summer Lara MD Unavailable [phone] Tavia Wyatt MD Unavailable Johnny Murillo MD Unavailable [phone] Erica Farrell PRODUCT MARKETING CONSULTANT CAREER SERVICES OFFICER Unavailable Teresita Bean [facility] Unavailable Tavia Wyatt MD Unavailable DesirDiana [facility] Unavailable [phone] Rich Barrett MD Unavailable [phone] Neil Kent MD Unavailable Roney StoryM Unavailable [phone] Erica Farrell APRN CAREER SERVICES OFFICER Unavailable + Diana Desir [facility] Unavailable [phone] Jelena David OD Unavailable Galo Burrell MD Unavailable Unavailable Livan Sharif MD Unavailable + Livan Sharif MD Unavailable + Catherine Cm MD Unavailable + Valery VeronicaC Unavailable [phone] Catherine Cm MD Unavailable + Johnny Murillo MD Unavailable [phone] Brea Quinn PRODUCT MARKETING CONSULTANT CAREER SERVICES OFFICER Unavailable [phone] Brea Quinn PRODUCT MARKETING CONSULTANT CAREER SERVICES OFFICER Unavailable [phone] Jose Francisco Johnson MD Unavailable Livan Sharif MD Unavailable + Catherine Cm MD Unavailable + Sydnie Martinez RN Unavailable Unavailable Alfonso Renteria MD Unavailable [phone] Esha GrimmC Primary Care Provider Cheng Todd PA-C Unavailable [phone] Radha Lomeli APRN CAREER SERVICES OFFICER Unavailable [phone] Jelena David OD Unavailable Jake, Pao RN Unavailable Unavailable Alfa, Esha M PA-C Unavailable [phone] Valery VeronicaC Unavailable [phone] Rey Tay MD Unavailable Duane Rockyanne STEVENS Unavailable Philip Dumont MD Unavailable [phone] Meredith Carrera PAUcheC Unavailable [phone] Neil Kent MD Unavailable Juan Pablo Emmanuel MD Unavailable [phone] Audrey Waite PA-C Unavailable [phone] Valery Veronica PA-C Unavailable Herminia Hatch MD Unavailable Encounter Details Date Type Department Care Team (Late st Contact Info) Description 04/17/2021 [facility] [address] [address] Marija Edgar APRN CAREER SERVICES OFFICER [facility] [place] [address] Social History Tobacco Use [...] week 08/07/2020 How often do you attend [facility] or sabianism services? More than 4 times [...] Score 0 04/02/2021 [facility] - Occup[facility] [...] in a residential (including now)? No 08/11/2020 Murdo Depression Scale Answer Date Recorded Murdo Depression Score 5 01/14/2021 Last EPDS Self Harm Result Not on file 01/14 Education Answer Date Recorded What is the highest level of school you have completed or the highest degree you have received? 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 SHOE FOLDER Gender Identity Female 03/02/2021 5:45 PM CDT [...] Office Visit [facility] Neurology [facility] - [address], [address] [place] [address] Juan [place] [id number] [place] [address] [place] [address] Johnny Penn MD [address] [place] [address] documented as of this encounter Visit Diagnoses Not on filedocumented in this encounter Additional Health Concerns Infection Onset Date Last Indicated Resolved Time Rule Out COVID-19 05/11/2021 05/11/2021 05/13/2021 10:18 AM CDT Rule Out COVID-19 07/13/2021 07/13/2021 07/14/2021 3:04 PM SHOE FOLDER Rule Out COVID-19 07/18/2021 07/18/2021 07/20/2021 1:56 PM SHOE FOLDER COVID-19 07/18/2021 07/18/2021 08/08/2021 11:3 9 PM SHOE FOLDER Rule Out COVID-19 12/18/2021 12/18/2021 12/19/2021 11:34 AM CDT Rule Out COVID-19 02/24/2022 02/24/2022 02/25/2022 1:08 PM CDT Rule Out COVID-19 04/26/2022 04/26/2022 04/26/2022 6:47 AM CDT Rule Out COVID-19 05/17/2022 05/17/2022 05/17/2022 10:20 PM SHOE FOLDER Rule Out COVID-19 06/09/2022 06/09/2022 06/09/2022 9:35 AM SHOE FOLDER COVID-19 06/09/2022 06/09/2022 06/30/2022 11:4 1 PM SHOE FOLDER Rule Out COVID-19 11/10/2022 11/10/2022 11/11/2022 12:17 PM CDT Rule Out COVID-19 03/07/2023 03/07/2023 03/07/2023 1:20 PM CDT Rule Out COVID-19 12/26/2023 12/26/2023 12/26/2023 9:50 AM CDT Rule Out COVID-04/09/2024 04/09/2024 04/10/2024 6:48 PM CDT Assessment Noted Time PHQ-9 Depression Total Score: 2 04/02/20 10:19 AM CDT documented as of this encounter Care Teams Cane Furniture Maker Relationship Specialty Start Date End Date Marija Edgar APRN CAREER SERVICES OFFICER PCP - General Nurse Practitioner 04/30/20 04/14/23 Esha Grimm PA-C [address] [place] [address] PCP - General Family Medicine 05/04/23 Lita Oseguera Personal Advocate & Liaison (PAL) 02/28/20 03/27/23 Chanelle Mccann APRN CNAdam [address] [place] [address] 200 [place] [address] Assigned OBGYN Provider 05/02/2005/09 Marija Edgar APRN CAREER SERVICES OFFICER Assigned PCP 06/08/20 04/29/23 Mynor Broussard MD 6363 [facility] 500 [place], [place] 541385 Assigned Surgical Provider 06/01/20 11/28/21 Keisha Dotson MD 909 [place], [place] 649885 Assigned Neuroscience Provider 06/04/20 04/01/23 Galo Burrell MD Assigned Heart and Vascular Provider 10/05/20 04/02/22 [facility] [address] [place] [address] Pharmacist Pharmacist 04/17/21 Rain Galaviz PA-C [address] [place] [address] [place] [address] Physician Dispatcher Refinery Dermatology 04/28/21 Summer Lara MD [address] [place] [address] Assigned OBGYN Provider 05/10/2105/23 Summer Lara MD [address] [place] [address] Assigned OBGYN Provider 05/31/21 Summer Lara MD [address] [place] [address] [place], [place] 515864 Assigned OBGYN Provider 05/24/2105/30 Tavia Wyatt MD [address] [place], [place] 094534 Dermatology 07/14/21 Johnny Murillo MD [address] [place] [address] Assigned Musculoskeletal Provider 08/30/21 03/17/22 Erica Farrell APRN CAREER SERVICES OFFICER 6405 [facility] [address] [place] [address] Nurse Practitioner Cardiovascular Disease 09/09/21 Teresita Bean, [facility] [address] [place] [address] Pharmacist Pharmacist 09/24/21 09/29/21 Tavia Wyatt MD [address] [place] [address] Assigned Surgical Provider 11/29/21 05/07/22 [facility] [address] [place] 411486 Assigned MTM Pharmacist 01/02/22 Rich Barrett MD [address] 224825 Physician Ophthalmology 01/21/22 Neil Kent MD 500 [place], [place] 8[address]05 Dermatology 02/24/22 Roney Story DPM [address] [facility] [address] [place] [address] Assigned Musculoskeletal Provider 03/20/22 08/13/22 Erica Farrell APRN CAREER SERVICES OFFICER 1700 [place] [address] Assigned Heart and Vascular Provider 04/03/22 04/16/22 Diana Desir, [facility] [address] [place] [address] Assigned MTM Pharmacist 04/07/22 Jelena David OD [address] [facility] [place] [address] Assigned Surgical Provider 05/08/22 10/08/22 Galo Burrell MD Assigned Heart and Vascular Provider 04/17/22 06/11/22 Livan Sharif MD [address], [place] [address] [place] [address] Cardiovascular Disease 05/14/22 Livan Sharif MD [address], [place] [address] [place] [address] Assigned Heart and Vascular Provider 06/12/22 07/23/22 Catherine Cm MD [address] [facility] [address] [place] [address] Cardiovascular Disease 07/21/22 Valery Veronica, PA-C 909 [place] [address] Physician Dispatcher Refinery Dermatology 07/21/22 Catherine Cm MD [address] [place] [address] [place] [address] Assigned Heart and Vascular Provider 07/24/22 11/05/22 Johnny Murillo MD [facility]2 [address] [address] Assigned Musculoskeletal Provider 08/14/22 10/08/22 Brea Quinn APRN CAREER SERVICES OFFICER 500 [place] [address] Nurse Practitioner Dermatology 09/21/22 Brea Quinn APRN CAREER SERVICES OFFICER [facility] [facility] [place] [address] Assigned Surgical Provider 10/09/22 05/01/24 [place] [address] [place] [address] Assigned Musculoskeletal Provider 10/09/22 05/01/24 Livan Sharif MD [address] [facility] [address] [place] [address] Assigned Heart and Vascular Provider 11/06/22 11/12/22 Catherine Cm MD [address] [facility] [address] [place] [address] Assigned Heart and Vascular Provider 11/13/22 05/27/23 Sydnie Martinez RN Personal Advocate & Liaison (PAL) Family Medicine 03/28/23 07/31/23 Alfonso Renteria MD 5775 [facility] 200 [place] [address] Assigned Neuroscience Provider 04/02/23 Cheng Todd PA-C [address] [place] [address] Assigned PCP 04/30/23 07/15/23 Radha Lomeli APRN CAREER SERVICES OFFICER [address] [place] [address] Assigned Heart and Vascular Provider 05/28/23 Jelena David OD [address] [facility] [place] [address] MD Ophthalmology 06/15/23 Pao Joseph, VJ Personal Advocate & Liaison (PAL) Nurse 08/01/23 11/07/23 Esha Grimm PA-C [address] [place] [phone] Assigned PCP 07/16/23 Valery Veronica PA-C [address] [place] [address] 391715 Physician Dispatcher Refinery Dermatology 09/19/23 Rey Tay MD [address] [place] [address] 299845 Gastroenterology 09/20/23 Rocky Zepeda DO [address] [place] [address] 897005 Physician Gastroenterology 09/20/23 Philip Dumont MD [address] [place] [address] 004765 Physician Ophthalmology 09/22/23 Meredith Carrera PA-C [address] [place] [address] 085875 Assigned Gastroenterology Provider 11/01/23 Neil Kent MD [address] [place] [address] 184780 [phone] Dermatology 11/02/23 [place] [address] [place] [address] Neurological Surgery 12/26/23 Audrey Waite PA-C 500 [place] [address] Physician Dispatcher Refinery Dermatology 02/28/24 Valery Veronica PA-C [address] [address] Physician Dispatcher Refinery Dermatology 04/10/24 Herminia Hatch MD [facility]5 [place], [place] [address]2362125 Assigned Rheumatology Provider 07/02/24 documented as of this encounter
--- OUTSIDE RECORDS SUMMARY | 2024-08-28 18:28 | XMS_ITS | Encounter Summary ---
Author Organization [place] Address [address] [place] [address] Care Team Providers Care Photo Cartographer Name Role Phone Diana Desir [facility] Unavailable Rain Galaviz PA-C Unavailable Tavia Wyatt MD Unavailable Erica Farrell APRN ELASTIC ATTACHER COVERSTITCH Unavailable Rich Barrett MD Unavailable [phone] Neil Kent MD Unavailable Diana Desir [facility] Unavailable Livan Sharif MD Unavailable Catherine Cm MD Unavailable + Valery Veronica PA-C Unavailable Brea Quinn ACADEMIC MANAGER ELASTIC ATTACHER COVERSTITCH Unavailable [phone] Brea Quinn ACADEMIC MANAGER ELASTIC ATTACHER COVERSTITCH Unavailable [phone] Jose Francisco Johnson MD Unavailable Alfonso Renteria MD Unavailable [phone] Esha Grimm PA-C Primary Care Provider Radha Lomeli APRN ELASTIC ATTACHER COVERSTITCH Unavailable Jelena David OD Unavailable Pao Joseph RN Unavailable Unavailable Esha Grimm PA-C Unavailable [phone] Valery Veronica PA-C Unavailable [phone] Rey Tay MD Unavailable Rocky Zepeda DO Unavailable Philip Dumont MD Unavailable [phone] Meredith Carrera PA-C Unavailable [phone] Neil Kent MD Unavailable Juan Pablo Emmanuel MD Unavailable [phone] Audrey Waite PA-C Unavailable [phone] Valery Veronica PA-C Unavailable Herminia Hatch MD Unavailable Encounter Details Date Type Department Care Team (Late st Contact Info) Description 09/08/2023 [facility] Medical Advice [facility] [address] [address] Mary Kelsey Social History Tobacco [...] at this level? 30 min 03/10/2023 [place] Depression Scale Answer Date Recorded [place] Depression Score 5 01/14/2021 Last EPDS [...] PM CDT Legal Sex Female 4:13 AM CREDIT RATING CHECKER Gender Identity Female 03/02/2021 5:45 PM CDT Sexual Orientation Straight 02/28/2020 12 :51 AM CDT documented as of this encounter Plan of Treatment Upcoming Encounters Date Type Department Care Team (Late st Contact Info) Description 10/23/2024 9:30 AM CDT Office Visit [facility] Neurology [address], [address] [place] [address] [place] [address] [address] [place] [id number] Johnny Penn MD [address] [place] [id number] documented as of this encounter Visit Diagnoses Not on filedocumented in this encounter Additional Health Concerns Infection Onset Date Last Indicated Resolved Time Rule Out COVID-19 12/26/2023 12/26/2023 12/26/2023 9:50 AM CDT Rule Out COVID-19 04/09/2024 04/09/2024 04/10/2024 6:48 PM CDT Assessment Noted Time PHQ-9 Depression Total Score: 4 06/20/20 23 8:40 AM CREDIT RATING CHECKER documented as of this encounter Care Teams Photo Cartographer Relationship Specialty Start Date End Date Esha Grimm PA-C [address] [place] [address] PCP - General Family Medicine 05/04/23 Diana Desir, [facility] [address] [place], [place] 097196 Pharmacist Pharmacist 04/17/21 Rain Galaviz PA-C [address] [place] [address] [address] [place] [address] Physician Aerial Applicator Pilot Dermatology 04/28/21 Tavia Wyatt MD [address] [place] [address] [address] [place], [place] [phone] Dermatology 07/14/21 Erica Farrell APRN ELASTIC ATTACHER COVERSTITCH [address] [facility] [address] [place], [place] 274[address] Nurse Practitioner Cardiovascular Disease 09/09/21 Rich Barrett MD 516 [facility] 9[address] [place], [place] 697315 Physician Ophthalmology 01/21/22 Neil Kent MD 500 [place], [place] 463075 Dermatology 02/24/22 Diana Desir, [facility] 3033 [place] [address] Assigned MTM Pharmacist 04/07/22 Livan Sharif MD [address], [facility] [address] [place], [place] 764475 Cardiovascular Disease 05/14/22 Catherine Cm MD [address] [facility] [address] [place], [place] 616445 Cardiovascular Disease 07/21/22 Valery Veronica, PAUcheC 909 [place], [place] 011475 Physician Aerial Applicator Pilot Dermatology 07/21/22 Brea Quinn APRN ELASTIC ATTACHER COVERSTITCH 500 [place], [place] 598795 Nurse Practitioner Dermatology 09/21/22 Brea Quinn APRN ELASTIC ATTACHER COVERSTITCH [address] [place] [address] 849402 Assigned Surgical Provider 10/09/22 05/01/24 [place] [address] [address] [facility] 300 [place], [place] 535637 Assigned Musculoskeletal Provider 10/09/22 05/01/24 Alfonso Renteria MD [address] [facility] 200 [place], [place] 966046 Assigned Neuroscience Provider 04/02/23 Radha Lomeli APRN ELASTIC ATTACHER COVERSTITCH 6405 [facility] [address] [place] [address] Assigned Heart and Vascular Provider 05/28/23 Jelena David OD 3305 [facility] [address] [place] [address] MD Ophthalmology 06/15/23 Pao Joseph, VJ Personal Advocate & Liaison (PAL) Nurse 08/01/23 11/07/23 Esha Grimm PA-C [address] [place] [phone] Assigned PCP 07/16/23 Valery Veronica PA-C [address] [place] [address] 064925 Physician Aerial Applicator Pilot Dermatology 09/19/23 Rey Tay MD [address] [place] [address] 122735 Gastroenterology 09/20/23 Rocky Zepeda DO [address] [place] [address] 634785 Physician Gastroenterology 09/20/23 Philip Dumont MD [address] [place] [address] 464955 Physician Ophthalmology 09/22/23 Meredith Carrera PA-C [address] [place] [address] 949365 Assigned Gastroenterology Provider 11/01/23 Neil Kent MD [address] [place] [address] Dermatology 11/02/23 [place] [address] [place] [address] 754147 Neurological Surgery 12/26/23 Audrey Waite PAUcheC 500 [place] [address] Physician Aerial Applicator Pilot Dermatology 02/28/24 Valery Veronica PAUcheC 490630 [place], [place] [address] Physician Aerial Applicator Pilot Dermatology 04/10/24 Herminia Hatch MD 1875 [place] [address] Assigned Rheumatology Provider 07/02/24 documented as of this encounter
--- OUTSIDE RECORDS SUMMARY | 2024-08-28 18:28 | XMS_ITS | Encounter Summary ---
Author Organization [place] Address [address] [place] [address] Care Team Providers Care Bulb Brander Name Role Phone Diana Desir [facility] Unavailable Rain Galaviz PA-C Unavailable Tavia Wyatt MD Unavailable Erica Farrell APRN SHAKER SCREEN OPERATOR Unavailable Rich Barrett MD Unavailable [phone] Neil Kent MD Unavailable Diana Desir [facility] Unavailable [phone] Livan Sharif MD Unavailable Catherine Cm MD Unavailable + Valery Veronica PA-C Unavailable Brea Quinn COMPUTER FORWARDING SYSTEM MARKUP CLERK SHAKER SCREEN OPERATOR Unavailable Brea Quinn COMPUTER FORWARDING SYSTEM MARKUP CLERK SHAKER SCREEN OPERATOR Unavailable Jose Francisco Johnson MD Unavailable Alfonso Renteria MD Unavailable [phone] Esha Grimm PA-C Primary Care Provider Radha Lomeli APRN SHAKER SCREEN OPERATOR Unavailable Jelena David OD Unavailable Pao Joseph RN Unavailable Unavailable Esha Grimm PA-C Unavailable [phone] Valery Veronica PA-C Unavailable Rey Tay MD Unavailable Rocky Zepeda DO Unavailable Philip Dumont MD Unavailable [phone] Meredith Carrera PA-C Unavailable [phone] Neil Kent MD Unavailable Juan Pablo Emmanuel MD Unavailable [phone] Audrey Waite PA-C Unavailable [phone] Valery eVronica PA-C Unavailable [phone] Herminia Hatch MD Unavailable Encounter Details Date Type Department Care Team (Late st Contact Info) Description 09/01/2023 [facility] Medical [address] [address] [facility] [address] [place] [address] Social History Tobacco Use Types Packs/Day Years [...] attend [facility] or scientologist services? 1 to 4 [...] Score 0 06/20/2023 [facility] Occupational Stress Questionnaire Answer [...] exercise at this level? 30 min 03/10/2023 [place] Depression Scale Answer Date Recorded [place] Depression Score 5 01/14/2021 Last EPDS Self [...] CDT Legal Sex Female 4:13 AM SENIOR PROJECT ACCOUNTANT Gender Identity Female 03/02/2021 5:45 PM CDT Sexual Orientation Straight 02/28/2020 12 :51 AM CDT documented as of this encounter Plan of Treatment Upcoming Encounters Date Type Department Care Team (Late st Contact Info) Description 10/23/2024 9:30 AM CDT Office Visit [facility] Neurology Clinics [address], [address] [place] [address] [place] [address] [address] [place] [address] Johnny Penn MD [address] [place] [address] documented as of this encounter Visit Diagnoses Not on filedocumented in this encounter Additional Health Concerns Infection Onset Date Last Indicated Resolved Time Rule Out COVID-19 12/26/2023 12/26/2023 12/26/2023 9:50 AM CDT Rule Out COVID-19 04/09/2024 04/09/2024 04/10/2024 6:48 PM CDT Assessment Noted Time PHQ-9 Depression Total Score: 4 06/20/20 23 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 PROJECT ACCOUNTANT documented as of this encounter Care Teams Bulb Brander Relationship Specialty Start Date End Date Esha Grimm PA-C [address] [place] [address] PCP - General Family Medicine 05/04/23 Diana Desir, [facility] 30[address] [place] [address] Pharmacist Pharmacist 04/17/21 Rain Galaviz PA-C [address] [place] [address] [address] [place] [address] Physician Executive Cyber Leader Dermatology 04/28/21 Tavia Wyatt MD [address] [place] [address] [address] [place] [address] Dermatology 07/14/21 Erica Farrell APRN SHAKER SCREEN OPERATOR 6[address] [facility] [address] [place] [address] Nurse Practitioner Cardiovascular Disease 09/09/21 Rich Barrett MD [address] [place] [address] 432775 Physician Ophthalmology 01/21/22 Neil Kent MD [address] [place] [address] Dermatology 02/24/22 [facility] [address] [place] [address] Assigned [place] Pharmacist 04/07/22 Livan Sharif MD [address] [place] [place] 1177800 [place] [address] Cardiovascular Disease 05/14/22 Catherine Cm MD [address] 476665 Cardiovascular Disease 07/21/22 Valery Veronica, PAUcheC 909 [place] [address] Physician Executive Cyber Leader Dermatology 07/21/22 Brea Quinn APRN SHAKER SCREEN OPERATOR 500 [place] [address] Nurse Practitioner Dermatology 09/21/22 Brea Quinn APRN SHAKER SCREEN OPERATOR [address] [place] [address] Assigned Surgical Provider 10/09/22 05/01/24 [place] [address] [address] Assigned Musculoskeletal Provider 10/09/22 05/01/24 Alfonso Renteria MD 5795 [facility] 200 [place] [address] Assigned Neuroscience Provider 04/02/23 Radha Lomeli APRN SHAKER SCREEN OPERATOR [address] [place] [address] Assigned Heart and Vascular Provider 05/28/23 Jelena David OD [address] [place] [address] Ophthalmology 06/15/23 Pao Joseph, VJ Personal Advocate & Liaison (PAL) Nurse 08/01/23 11/07/23 Esha Grimm PA-C [address] [place] [address] Assigned PCP 07/16/23 Valery Veronica PA-C [address] [place] [address] 787555 Physician Executive Cyber Leader Dermatology 09/19/23 Rey Tay MD [address] [place] [address] 772385 Gastroenterology 09/20/23 Rocky Zepeda DO [address] [place] [address] 436315 Physician Gastroenterology 09/20/23 Philip Dumont MD [address] [place] [address] 809865 Physician Ophthalmology 09/22/23 Meredith Carrera PA-C [address] [place] [address] Assigned Gastroenterology Provider 11/01/23 Neil Kent MD [address] [address] Dermatology 11/02/23 [place] [address] [address] Neurological Surgery 12/26/23 Audrey Waite PA-C 500 [place] [address] Physician Executive Cyber Leader Dermatology 02/28/24 Valery Veronica PA-C 902181 [place], [place] [address] Physician Executive Cyber Leader Dermatology 04/10/24 Herminia Hatch MD [facility] [place], [place] 42003125 Assigned Rheumatology Provider 07/02/24 documented as of this encounter
--- OUTSIDE RECORDS SUMMARY | 2024-08-28 18:28 | XMS_ITS | Encounter Summary ---
Author Organization [place] Address [address] [place] [address] Care Team Providers Care Medical Office Secretary Name Role Phone Lita Oseguera Unavailable Unavailable Marija Edgar APRN VP COMMUNICATIONS Primary Care Provider + Marija Edgar APRN VP COMMUNICATIONS Unavailable [phone] Keisha Dotson MD Unavailable [phone] Diana Desir [facility] Unavailable [phone] Rain Galaviz PA-C Unavailable [phone] Tavia Wyatt MD Unavailable Erica Farrell APRN VP COMMUNICATIONS Unavailable Rich Barrett MD Unavailable Neil Kent MD Unavailable Roney Story DPM Unavailable Diana Desir [facility] Unavailable Jelena David OD Unavailable Livan Sharif MD Unavailable Livan Sharif MD Unavailable Catherine Cm MD Unavailable + Valery Veronica PA-C Unavailable Catherine Cm MD Unavailable + Johnny Murillo MD Unavailable [phone] Brea Quinn WALNUT DEHYDRATOR OPERATOR VP COMMUNICATIONS Unavailable [phone] Brea Quinn WALNUT DEHYDRATOR OPERATOR VP COMMUNICATIONS Unavailable [phone] Jose Francisco Johnson MD Unavailable Livan Sharif MD Unavailable Catherine Cm MD Unavailable + Sydnie Martinez RN Unavailable Unavailable Alfonso Renteria MD Unavailable Esha Grimm PA-C Primary Care Provider Cheng Todd PA-C Unavailable [phone] Radha Lomeli WALNUT DEHYDRATOR OPERATOR VP COMMUNICATIONS Unavailable Jelena David OD Unavailable [phone] Pao Joseph RN Unavailable Unavailable Esha Grimm PA-C Unavailable [phone] Valery Veronica PA-C Unavailable [phone] Rey Tay MD Unavailable Rocky Zepeda DO Unavailable Philip Dumont MD Unavailable [phone] Meredith Carrera PA-C Unavailable Neil Kent MD Unavailable Juan Pablo Emmanuel MD Unavailable Audrey Waite PA-C Unavailable [phone] Valery Veronica PA-C Unavailable [phone] Herminia Hatch MD Unavailable Encounter Details Date Type Department Care Team (Late st Contact Info) Description 07/07/2022 [facility] Medical Advice [facility] [address] [facility] [address] [place] [address] Livan Sharif MD [address] [place] [address] Social History Tobacco Use Types Packs/Day Years [...] How often do you attend druze or protestant serv ices? Never 09/22/2021 Do [...] points; Administer PHQ-9 if positive 1 05/13/2022 [facility] of Occupat ional Health - Occupational Stress [...] a senior living (including now)? No 09/22/2021 [place] Depression Scale [...] PM CDT Legal Sex Female 4:13 AM LIFE AGENT Gender Identity Female 03/02/2021 5:45 PM CDT Sexual Orientation Straight 02/28/2020 12 :51 AM CDT COVID-19 Exposure Response Date Recorded In the last 10 days, have yo u been in contact with someone who was confirmed or suspected to have Coronavirus/COVID-19? No / Unsure 06/25/2022 8:44 AM LIFE AGENT documented as of this encounter Plan of Treatment Upcoming Encounters Date Type Department Care Team (Late st Contact Info) Description 10/23/2024 9:30 AM CDT Office Visit [facility] Neurology Clinics [address], [address] [place] [address] [place] [address] [place] [address] Johnny Penn MD 7998 [facility] [place] [id number] documented as of this encounter Visit Diagnoses Not on filedocumented in this encounter Additional Health Concerns Infection Onset Date Last Indicated Resolved Time Rule Out COVID-19 11/10/2022 11/10/2022 11/11/2022 12:17 PM CDT Rule Out COVID-19 03/07/2023 03/07/2023 03/07/2023 1:20 PM CDT Rule Out COVID-19 12/26/2023 12/26/2023 12/26/2023 9:50 AM CDT Rule Out COVID-19 04/09/2024 04/09/202404/10/2024 6:48 PM CDT Assessment Noted Time PHQ-9 Depression Total Score: 3 05/13/20 8:49 PM CDT documented as of this encounter Care Teams Medical Office Secretary Relationship Specialty Start Date End Date Marija Edgar APRN VP COMMUNICATIONS PCP - General Nurse Practitioner 04/30/20 04/14/23 Esha Grimm PA-C [address] [place] [address] PCP - General Family Medicine 05/04/23 Lita Oseguera Personal Advocate & Liaison (PAL) 02/28/20 03/27/23 Marija Edgar APRN VP COMMUNICATIONS Assigned PCP 06/08/20 04/29/23 Keisha Dotson MD 909 [place] [address] Assigned Neuroscience Provider 06/04/20 04/01/23 Diana Desir, [facility] 3033 [place] [address] Pharmacist Pharmacist 04/17/21 Rain Galaviz PA-C [address] [place] [address] [address] [place] [address] Physician Ceramic Sprayer Dermatology 04/28/21 Tavia Wyatt MD [address] [place] [address] [address] [place] [address] Dermatology 07/14/21 Erica Farrell APRN VP COMMUNICATIONS [address] [place] [address] Nurse Practitioner Cardiovascular Disease 09/09/21 Rich Barrett MD 516 [facility], [address] 007145 Physician Ophthalmology 01/21/22 Neil Kent MD 500 [place], [place] 491505 Dermatology 02/24/22 [place] D[place] [address] [employer] [facility] [address] [place], [place] 060[address] Assigned Musculoskeletal Provider 03/20/22 08/13/22 Diana Desir, [facility] [address] [place], [place] 361676 Assigned MTM Pharmacist 04/07/22 Jelena David OD 3305 [facility] [place] [address] Assigned Surgical Provider 05/08/22 10/08/22 Livan Sharif MD [address] [place] [address] Cardiovascular Disease 05/14/22 Livan Sharif MD [address] [place] [address] Assigned Heart and Vascular Provider 06/12/22 07/23/22 Catherine Cm MD [address] [facility]00 [place] [address] Cardiovascular Disease 07/21/22 Valery Veronica PA-C 9 [place], [place] 675[address] Physician Ceramic Sprayer Dermatology 07/21/22 Catherine Cm MD [address] [facility]00 [place] 702245 Assigned Heart and Vascular Provider 07/24/22 11/05/22 Johnny Murillo MD [address] [place] [address] 183544 Assigned Musculoskeletal Provider 08/14/22 10/08/22 Brea Quinn APRN VP COMMUNICATIONS [address] [place] [address] [id number] Nurse Practitioner Dermatology 09/21/22 Brea Quinn APRN VP COMMUNICATIONS [address] [place] [address] [place] 877292 Assigned Surgical Provider 10/09/22 05/01/24 [place] [address] [facility] [place] 119747 Assigned Musculoskeletal Provider 10/09/22 05/01/24 Livan Sharif MD [address] [facility]00 [place] 336925 Assigned Heart and Vascular Provider 11/06/22 11/12/22 Catherine Cm MD [address] [place] [address] Assigned Heart and Vascular Provider 11/13/22 05/27/23 Sydnie Martinez RN Personal Advocate & Liaison (PAL) Family Medicine 03/28/23 07/31/23 Alfonso Renteria MD 5775 [facility] [address] 200 [place], [place] 938846 Assigned Neuroscience Provider 04/02/23 Cheng Todd PA-C [address] [place] [address] [id number] Assigned PCP 04/30/23 07/15/23 Radha Lomeli APRN VP COMMUNICATIONS [address] [place], [place] 367875 Assigned Heart and Vascular Provider 05/28/23 Jelena David OD [address] [facility] [address] Ophthalmology 06/15/23 Pao Joseph, VJ Personal Advocate & Liaison (PAL) Nurse 08/01/23 11/07/23 Esha Grimm PA-C [address] [place] [phone] Assigned PCP 07/16/23 Valery Veronica PA-C 909 [place], [place] 723655 Physician Ceramic Sprayer Dermatology 09/19/23 Rey Tay MD 909 [place], [place] 821555 MD Gastroenterology 09/20/23 Rocky Zepeda DO 500 [place] [address] Physician Gastroenterology 09/20/23 Philip Dumont MD 516 [place], [place] 981935 Physician Ophthalmology 09/22/23 Meredith Carrera PA-C 9 [place] [address] Assigned Gastroenterology Provider 11/01/23 Neil Kent MD [address] 597280 Dermatology 11/02/23 [place] [address] [address] [facility] [place], [place] 740[address] Neurological Surgery 12/26/23 Audrey Waite PA-C 500 [place] [address] Physician Ceramic Sprayer Dermatology 02/28/24 Valery Veronica PA-C 042924 [place], [place] [address] Physician Ceramic Sprayer Dermatology 04/10/24 Herminia Hatch MD [address] [place] [address] Assigned Rheumatology Provider 07/02/24 documented as of this encounter
--- OUTSIDE RECORDS SUMMARY | 2024-08-28 18:28 | XMS_ITS | Encounter Summary ---
Author Organization [place] Address [address] [place] [address] Care Team Providers Care Developer Programmer Analyst Name Role Phone Lita Oseguera Unavailable Unavailable Marija Edgar APRN LATEX CASTER Primary Care Provider + Marija Edgar APRN LATEX CASTER Unavailable [phone] Keisha Dotson MD Unavailable Diana Desir [facility] Unavailable [phone] Rain Galaviz PA-C Unavailable Tavia Wyatt MD Unavailable Erica Farrell APRN LATEX CASTER Unavailable Rich Barrett MD Unavailable Neil Kent MD Unavailable Roney Story DPM Unavailable [phone] Diana Desir [facility] Unavailable [phone] Jelena David OD Unavailable Galo Burrell MD Unavailable Unavailable Livan Sharif MD Unavailable Livan Sharif MD Unavailable Catherine Cm MD Unavailable + Valery Veronica PA-C Unavailable Catherine Cm MD Unavailable + Johnny Murillo MD Unavailable [phone] Brea Quinn BALANCE TRUER LATEX CASTER Unavailable [phone] Brea Quinn BALANCE TRUER LATEX CASTER Unavailable [phone] Jose Francisco Johnson MD Unavailable Livan Sharif MD Unavailable Catherine Cm MD Unavailable + Sydnie Martinez RN Unavailable Unavailable Alfonso Renteria MD Unavailable Esha Grimm PA-C Primary Care Provider Cheng Todd PA-C Unavailable [phone] Radha Lomeli BALANCE TRUER LATEX CASTER Unavailable Frankie Jelena Garcia OD Unavailable Pao Joseph RN Unavailable Unavailable Esha Grimm PA-C Unavailable [phone] JeremíasValery damon PA-C Unavailable Rey Tay MD Unavailable Rocky Zepeda DO Unavailable Philip Dumont MD Unavailable [phone] Meredith Carrera PA-C Unavailable Neil Kent MD Unavailable Juan Pablo Emmanuel MD Unavailable Audrey Waite PA-C Unavailable Valery Veronica PA-C Unavailable Herminia Hatch MD Unavailable Encounter Details Date Type Department Care Team (Late st Contact Info) Description 05/11/2022 My[facility] Medical Advice [address] [address] Diana Desir, [facility] [address] [place] [address] Social History Tobacco Use Types Packs/Day Years [...] How often do you attend pentecostalism or church serv ices? Never 09/22/2021 Do [...] points; Administer PHQ-9 if positive 1 05/13/2022 [facility] [...] in a halfway (including now)? No 09/22/2021 Krum Depression Scale Answer Date Recorded Krum Depression Score 5 01/14/2021 Last EPDS Self Harm Result Not on file 01/14 Education Answer Date Recorded What is the highest level of school you have completed or the highest degree you have received? 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 HUNTING SALES LEADER Gender Identity Female 03/02/2021 5:45 PM [...] CDT Office Visit [facility] Neurology [address], [address] [place] [address] [place] [address] [place] 597187 Johnny Penn MD [address] [place] 322295 documented as of this encounter Visit Diagnoses Not on filedocumented in this encounter Additional Health Concerns Infection Onset Date Last Indicated Resolved Time Rule Out COVID-19 05/17/2022 05/17/2022 05/17/2022 10:20 PM HUNTING SALES LEADER Rule Out COVID-19 06/09/2022 06/09/2022 06/09/2022 9:35 AM HUNTING SALES LEADER COVID-19 06/09/2022 06/09/2022 06/30/2022 11:4 1 PM HUNTING SALES LEADER Rule Out COVID-19 11/10/2022 11/10/2022 11/11/2022 12:17 PM CDT Rule Out COVID-19 03/07/2023 03/07/2023 03/07/2023 1:20 PM CDT Rule Out COVID-19 12/26/2023 12/26/2023 12/26/2023 9:50 AM CDT Rule Out COVID-19 04/09/2024 04/09/2024 04/10/2024 6:48 PM CDT Assessment Noted Time PHQ-9 Depression Total Score: 3 05/13/20 8:49 PM CDT documented as of this encounter Care Teams Developer Programmer Analyst Relationship Specialty Start Date End Date Marija Edgar APRN LATEX CASTER PCP - General Nurse Practitioner 04/30/20 04/14/23 Esha Grimm PA-C [address] [place] [phone] PCP - General Family Medicine 05/04/23 Lita Oseguera Personal Advocate & Liaison (PAL) 02/28/20 03/27/23 Marija Edgar APRN LATEX CASTER Assigned PCP 06/08/20 04/29/23 Keisha Dotson MD [address] [place], [place] 841125 Assigned Neuroscience Provider 06/04/20 04/01/23 Diana Desir [facility] [address] [place], [place] 133506 Pharmacist Pharmacist 04/17/21 Rain Galaviz PA-C [address] [place] [address] [place] [address] Physician Community Development Planner Dermatology 04/28/21 Tavia Wyatt MD [address] [place] [address] DR [facility] [place] [address] Dermatology 07/14/21 Erica Farrell APRN LATEX CASTER [address] [place] [address] Nurse Practitioner Cardiovascular Disease 09/09/21 Rich Barrett MD [address] 075525 Physician Ophthalmology 01/21/22 Neil Kent MD 500 [place], [place] 910745 Dermatology 02/24/22 Roney Story DPM [address] [facility] [address] [place] [address] Assigned Musculoskeletal Provider 03/20/22 08/13/22 Diana Desir, [facility] [address] [place] [address] Assigned MTM Pharmacist 04/07/22 Jelena David OD [address] [facility] [place] [address] Assigned Surgical Provider 05/08/22 10/08/22 Galo Burrell MD Assigned Heart and Vascular Provider 04/17/22 06/11/22 Livan Sharif MD [address] [place] [address] Cardiovascular Disease 05/14/22 Livan Sharif MD [address] [place] [address] Assigned Heart and Vascular Provider 06/12/22 07/23/22 Catherine Cm MD [address] [place] 881365 Cardiovascular Disease 07/21/22 Valery Veronica, PAUcehC [address] [place] [address] 596275 Physician Community Development Planner Dermatology 07/21/22 Catherine Cm MD [address] [place] 513905 Assigned Heart and Vascular Provider 07/24/22 11/05/22 Johnny Murlilo MD [address] 586304 Assigned Musculoskeletal Provider 08/14/22 10/08/22 Brea Quinn APRN LATEX CASTER [address] [place] [address] 156475 Nurse Practitioner Dermatology 09/21/22 Brea Quinn APRN LATEX CASTER [address] [place] [address] [place] 980772 Assigned Surgical Provider 10/09/22 05/01/24 [place] [address] [address] [place] [address] Assigned Musculoskeletal Provider 10/09/22 05/01/24 Livan Sharif MD [address], [facility] [address] [place] [address] Assigned Heart and Vascular Provider 11/06/22 11/12/22 Catherine Cm MD [address] [facility] [address] [place] [address] Assigned Heart and Vascular Provider 11/13/22 05/27/23 Sydnie Martinez RN Personal Advocate & Liaison (PAL) Family Medicine 03/28/23 07/31/23 Alfonso eRnteria MD 5775 [facility] [address] [place], [place] 962566 Assigned Neuroscience Provider 04/02/23 Cheng Todd PA-C [address] [place] [address] [phone] Assigned PCP 04/30/23 07/15/23 Radha Lomeli APRN LATEX CASTER [address] [place] [address] Assigned Heart and Vascular Provider 05/28/23 Jelena David OD [address] [facility] [address] Ophthalmology 06/15/23 Pao Joseph, VJ Personal Advocate & Liaison (PAL) Nurse 08/01/23 11/07/23 Esha Grimm PA-C [address] [place] [address] Assigned PCP 07/16/23 Valery Veronica PA-C [address] [place] [address] 296425 Physician Community Development Planner Dermatology 09/19/23 Rey Tay MD [address] [place] [address] 769555 MD Gastroenterology 09/20/23 Rocky Zepeda DO [address] [place] [address] 650325 Physician Gastroenterology 09/20/23 Philip Dumont MD [address] [place] [address] 708075 Physician Ophthalmology 09/22/23 Meredith Carrera PA-C [address] [place] [address] Assigned Gastroenterology Provider 11/01/23 Neil Kent MD [address] [place] [address] Dermatology 11/02/23 [place] [address] [place] [address] Neurological Surgery 12/26/23 Audrey Waite PA-C 500 [place] [address] Physician Community Development Planner Dermatology 02/28/24 Valery Veronica PA-C [address] [place] [address] Physician Community Development Planner Dermatology 04/10/24 Herminia Hatch MD [address] [place] [address] Assigned Rheumatology Provider 07/02/24 documented as of this encounter
--- OUTSIDE RECORDS SUMMARY | 2024-08-28 18:28 | XMS_ITS | Encounter Summary ---
Author Organization [place] Address [address] [place] [address] Care Team Providers Care Care Team Assistant Name Role Phone Diana Desir [facility] Unavailable Rain Galaviz PAUcheC Unavailable Tavia Wyatt MD Unavailable Erica Farrell EFFICIENCY MINER BLASTING SUPPLY SERVICE WORKER Unavailable Rich Barrett MD Unavailable [phone] Neil Kent MD Unavailable Kendrick Desirelle Stanislav [facility] Unavailable Livan Sharif MD Unavailable Catherine Cm MD Unavailable + Valery Veronica-C Unavailable Brea Quinn EFFICIENCY MINER BLASTING SUPPLY SERVICE WORKER Unavailable Alfonso Renteria MD Unavailable [phone] Esha GrimmC Primary Care Provider Radha Lomeli EFFICIENCY MINER BLASTING SUPPLY SERVICE WORKER Unavailable Jelena David OD Unavailable [phone] Esha Grimm PA-C Unavailable [phone] Valery VeronicaC Unavailable [phone] Rey Tay MD Unavailable Rocky Zepeda DO Unavailable Philip Dumont MD Unavailable [phone] Meredith CarreraC Unavailable [phone] Neil Kent MD Unavailable Juan Pablo Emmanuel MD Unavailable [phone] Audrey WaiteC Unavailable [phone] Valery VeronicaC Unavailable [phone] Herminia Hatch MD Unavailable Encounter Details Date Type Department Care Team (Latest Contact Info) Description 08/27/2024 Travel Social History Tobacco Use Types Packs/Day [...] do you attend chur or gnosticist services? 1 to 4 times [...] Answer Date Recorded PHQ-2 Score 1 02/07/2024 [facility] - Occupational Stress Questionnaire Answer [...] exercise at this level? 20 min 05/07/2024 Chadron Depression Scale Answer Date Recorded Chadron Depression Score 5 01/14/2021 Last EPDS Self [...] an overnight care home, or couch-surfing.) Yes 05/07/2024 Are you [...] PM CDT Legal Sex Female 4:13 AM INCOME TAX ANALYST Gender Identity Female 03/02/2021 5:45 PM CDT Sexual Orientation Straight 02/28/2020 12 :51 AM CDT documented as of this encounter Plan of Treatment Upcoming Encounters Date Type Department Care Team (Late st Contact Info) Description 10/23/2024 9:30 AM CDT Office Visit [facility] Neurology [address], [address] [place] [address] [place] [address] [place] [address] Johnny Penn MD 65[address] [facility] [place] 0087[address] documented as of this encounter Visit Diagnoses Not on filedocumented in this encounter Additional Health Concerns Assessment Noted Time PHQ-9 Depression Total Score: 3 02/07/20 24 9:33 AM CDT documented as of this encounter Care Teams Care Team Assistant Relationship Specialty Start Date End Date Esha Grimm PA-C [address] [place] [address] PCP - General Family Medicine 05/04/23 Diana Desir, [facility] [address] [place] [address] Pharmacist Pharmacist 04/17/21 Rain Galaviz PA-C [address] [place] [address] [address] [place] [address] Physician Contracts Administrator Dermatology 04/28/21 Tavia Wyatt MD [address] [place] [address] [address] [place] [address] Dermatology 07/14/21 Erica Farrell APRN SUPPLY SERVICE WORKER [address] [place] 860425 Nurse Practitioner Cardiovascular Disease 09/09/21 Rich Barrett MD 516 [facility], [facility] [address] [place], [place] 9[address] Physician Ophthalmology 01/21/22 Neil Kent MD 500 [place], [place] 796315 Dermatology 02/24/22 [facility] [address] [place] [address] Assigned MTM Pharmacist 04/07/22 Livan Shairf MD [address] [place] [address] Cardiovascular Disease 05/14/22 Catherine Cm MD [address] [place] [address] Cardiovascular Disease 07/21/22 Valery Veronica PA-C [address] [place] [address] 420945 Physician Contracts Administrator Dermatology 07/21/22 Brea Quinn APRN SUPPLY SERVICE WORKER [address] [place] [address] 646795 Nurse Practitioner Dermatology 09/21/22 Alfonso Renteria MD 5775 [facility] 200 [place], [place] 733896 Assigned Neuroscience Provider 04/02/23 Radha Lomeli APRN SUPPLY SERVICE WORKER [address] [place] [address] Assigned Heart and Vascular Provider 05/28/23 Jelena David OD [address] [place] [address] [place] [address] Ophthalmology 06/15/23 Esha Grimm PA-C [address] [place] [address] Assigned PCP 07/16/23 Valery Veronica PA-C [address] [place] [address] 317765 Physician Contracts Administrator Dermatology 09/19/23 Rey Tay MD [address] [place] [address] Gastroenterology 09/20/23 Rocky Zepeda DO 500 [place] [address] Physician Gastroenterology 09/20/23 Philip Dumont MD 516 [place] [address] Physician Ophthalmology 09/22/23 Meredith Carrera PA-C 909 [place] [address] Assigned Gastroenterology Provider 11/01/23 Neil Kent MD [address] [address] MD Dermatology 11/02/23 [place] [address] 574667 Neurological Surgery 12/26/23 Audrey Wiate PA-C 500 [place] [address] Physician Contracts Administrator Dermatology 02/28/24 Valery Veronica PA-C 960516 [place], [place] [address] Physician Contracts Administrator Dermatology 04/10/24 Herminia aHtch MD [facility]5 [place], [place] 15530125 Assigned Rheumatology Provider 07/02/24 documented as of this encounter
--- OUTSIDE RECORDS SUMMARY | 2024-08-28 18:28 | XMS_ITS | Encounter Summary ---
Author Organization [place] Address [address] [place] [address] Care Team Providers Care Delivery Tech Name Role Phone Diana Desir [facility] Unavailable Rain Galaviz PA-C Unavailable Tavia Wyatt MD Unavailable Erica Farrell APRN SHEEP HERDER Unavailable Rich Barrett MD Unavailable [phone] Neil Kent MD Unavailable Diana Desir [facility] Unavailable Livan Sharif MD Unavailable Catherine Cm MD Unavailable + Valery Veronica PA-C Unavailable Brea Quinn MACHINE ETCHER SHEEP HERDER Unavailable Brea Quinn MACHINE ETCHER SHEEP HERDER Unavailable [phone] Jose Francisco Johnson MD Unavailable Alfonso Renteria MD Unavailable [phone] Esha Grimm PA-C Primary Care Provider [phone] Radha Lomeli APRN SHEEP HERDER Unavailable Jelena David OD Unavailable Pao Joseph RN Unavailable Unavailable Esha Grimm PA-C Unavailable [phone] Valery Veronica PA-C Unavailable [phone] Rey Tay MD Unavailable Rocky Zepeda DO Unavailable Philip Dumont MD Unavailable [phone] Meredith Carrera PA-C Unavailable [phone] Neil Kent MD Unavailable Juan Pablo Emmanuel MD Unavailable [phone] Audrey Waite PA-C Unavailable [phone] Valery Veronica PA-C Unavailable [phone] Herminia Hatch MD Unavailable Encounter Details Date Type Department Care Team (Late st Contact Info) Description 09/08/2023 [facility] Medical Advice [facility] [address] [address] Marija Polanco RN Social History [...] do you attend [facility] or faith services? 1 to 4 [...] exercise at this level? 30 min 03/10/2023 Lillian Depression Scale Answer Date Recorded Lillian Depression Score 5 01/14/2021 Last EPDS Self [...] PM CDT Legal Sex Female 4:13 AM VMWARE ENGINEER Gender Identity Female 03/02/2021 5:45 PM CDT Sexual Orientation Straight 02/28/2020 12 :51 AM CDT documented as of this encounter Plan of Treatment Upcoming Encounters Date Type Department Care Team (Late st Contact Info) Description 10/23/2024 9:30 AM CDT Office Visit [facility] Neurology [address], [address] [place] [address] [place] [address] [address] [place] 411697 Johnny Penn MD [address] [place] [address] documented as of this encounter Visit Diagnoses Not on filedocumented in this encounter Additional Health Concerns Infection Onset Date Last Indicated Resolved Time Rule Out COVID-19 12/26/2023 12/26/2023 12/26/2023 9:50 AM CDT Rule Out COVID-19 04/09/2024 04/09/2024 04/10/2024 6:48 PM CDT Assessment Noted Time PHQ-9 Depression Total Score: 4 06/20/20 23 8:40 AM VMWARE ENGINEER documented as of this encounter Care Teams Delivery Tech Relationship Specialty Start Date End Date Esha Grimm PA-C [address] [place] [address] PCP - General Family Medicine 05/04/23 Diana Desir, [facility] [address] [place], [place] [address] Pharmacist Pharmacist 04/17/21 Rain Galaviz PA-C [address] [place] [address] [address] [place] [address] Physician Radiation Control Worker Dermatology 04/28/21 Tavia Wyatt MD [address] [place] [address] [place] [address] [id number] Dermatology 07/14/21 Erica Farrell APRN SHEEP HERDER 6405 [facility] [address] [place], [place] 6[address] Nurse Practitioner Cardiovascular Disease 09/09/21 Rich Barrett MD [address] [facility] [address] [place], [place] 600[address] Physician Ophthalmology 01/21/22 Neil Kent MD 500 [place], [place] 933775 Dermatology 02/24/22 Diana Desir, [facility] 3033 [place] [address] Assigned MTM Pharmacist 04/07/22 Livan Sharif MD [address], [facility] [address] [place] 3[address]25 Cardiovascular Disease 05/14/22 Catherine Cm MD [address] [facility] [address] [place] [address]95 Cardiovascular Disease 07/21/22 Valery Veronica, PA-C 909 [place], [place] 847045 Physician Radiation Control Worker Dermatology 07/21/22 Brea Quinn APRN SHEEP HERDER 500 [place], [place] 668705 Nurse Practitioner Dermatology 09/21/22 Brea Quinn APRN SHEEP HERDER [address] [place] [address] 761642 Assigned Surgical Provider 10/09/22 05/01/24 [place] [address] [address] [facility] 300 [place], [place] 914927 Assigned Musculoskeletal Provider 10/09/22 05/01/24 Alfonso Renteria MD 5775 [facility] 200 [place], [place] 812076 Assigned Neuroscience Provider 04/02/23 Radha Lomeli APRN SHEEP HERDER 6405 [facility] [address] [place] [address] Assigned Heart and Vascular Provider 05/28/23 Jelena David OD [address] [facility] [place] [address] MD Ophthalmology 06/15/23 Pao Joseph, VJ Personal Advocate & Liaison (PAL) Nurse 08/01/23 11/07/23 Esha Grimm PA-C [address] [place] [phone] Assigned PCP 07/16/23 Valery Veronica PA-C [address] [place] [address] 640785 Physician Radiation Control Worker Dermatology 09/19/23 Rey Tay MD [address] [place] [address] 263095 Gastroenterology 09/20/23 Rocky Zepeda DO [address] [place] [address] 007215 Physician Gastroenterology 09/20/23 Philip Dumont MD [address] [place] [address] 748515 Physician Ophthalmology 09/22/23 Meredith Carrera PA-C [address] [place] [address] 966365 Assigned Gastroenterology Provider 11/01/23 Neil Kent MD [address] [place] [address] Dermatology 11/02/23 [place] [address] 567537 Neurological Surgery 12/26/23 Audrey Waite PA-C 500 [place] [address] Physician Radiation Control Worker Dermatology 02/28/24 Valery Veronica PA-C 715649 [place], [place] [address] Physician Radiation Control Worker Dermatology 04/10/24 Herminia Hatch MD [facility]5 [place] [address] Assigned Rheumatology Provider 07/02/24 documented as of this encounter
--- OUTSIDE RECORDS SUMMARY | 2024-08-28 18:28 | XMS_ITS | Encounter Summary ---
Author Organization [place] Address [address] [place] [address] Care Team Providers Care Fire Boss Name Role Phone Diana Desir [facility] Unavailable Rain Galaviz PA-C Unavailable Tavia Wyatt MD Unavailable Erica Farrell APRN HOME THEATER EXPERIENCE EXPERT Unavailable Rich Barrett MD Unavailable [phone] Neil Kent MD Unavailable Diana Desir [facility] Unavailable [phone] Livan Sharif MD Unavailable Catherine Cm MD Unavailable + Valery Veronica PA-C Unavailable [phone] Brea Quinn WAITRESS HOME THEATER EXPERIENCE EXPERT Unavailable Brea Quinn WAITRESS HOME THEATER EXPERIENCE EXPERT Unavailable Jose Francisco Johnson MD Unavailable Alfonso Renteria MD Unavailable [phone] Esha Grimm PA-C Primary Care Provider Radha Lomeli APRN HOME THEATER EXPERIENCE EXPERT Unavailable Jelena David OD Unavailable Pao Joseph RN Unavailable Unavailable Esha Grimm PA-C Unavailable [phone] Valery Veronica PA-C Unavailable [phone] Rey Tay MD Unavailable Rocky Zepeda DO Unavailable Philip Dumont MD Unavailable [phone] Meredith Carrera PA-C Unavailable [phone] Neil Kent MD Unavailable Juan Pablo Emmanuel MD Unavailable [phone] Audrey Waite PA-C Unavailable [phone] Valery Veronica PA-C Unavailable Herminia Hatch MD Unavailable Encounter Details Date Type Department Care Team (Late st Contact Info) Description 09/20/2023 [facility] [address] [address] Jeffery Vieira, RN Social History [...] Recorded PHQ-2 Score 0 06/20/2023 [facility] of Occupat ional Health - Occupational Stress [...] exercise at this level? 30 min 03/10/2023 [place] Depression Scale Answer Date Recorded [place] Depression Score 5 01/14/2021 Last EPDS Self [...] CDT Legal Sex Female 4:13 AM MANAGER PRODUCTION Gender Identity Female 03/02/2021 5:45 PM CDT Sexual Orientation Straight 02/28/2020 12 :51 AM CDT documented as of this encounter Plan of Treatment Upcoming Encounters Date Type Department Care Team (Late st Contact Info) Description 10/23/2024 9:30 AM CDT Office Visit [facility] Neurology [address], [address] [place] [address] [place] [address] [address] [place] 9557[address] Johnny Penn MD [address] [place] [address] documented as of this encounter Visit Diagnoses Not on filedocumented in this encounter Additional Health Concerns Infection Onset Date Last Indicated Resolved Time Rule Out COVID-19 12/26/2023 12/26/2023 12/26/2023 9:50 AM CDT Rule Out COVID-19 04/09/2024 04/09/2024 04/10/2024 6:48 PM CDT Assessment Noted Time PHQ-9 Depression Total Score: 4 06/20/20 23 8:40 AM MANAGER PRODUCTION documented as of this encounter Care Teams Fire Boss Relationship Specialty Start Date End Date Esha Grimm PA-C [address] [place] [address] PCP - General Family Medicine 05/04/23 Diana Desir, [facility] [address] [place], [place] 503[address] Pharmacist Pharmacist 04/17/21 Rain Galaviz PA-C [address] [place] [address] [address] [place] [address] Physician Credit Risk Specialist Dermatology 04/28/21 Tavia Wyatt MD [address] [place] [address] [address] [place] [address] [phone] Dermatology 07/14/21 Erica Farrell APRN HOME THEATER EXPERIENCE EXPERT [address] [facility] [address] [place], [place] 751705 Nurse Practitioner Cardiovascular Disease 09/09/21 Rich Barrett MD [address] 004[address] Physician Ophthalmology 01/21/22 Neil Kent MD 500 [place], [place] 962575 Dermatology 02/24/22 Diana Desir, [facility] 3033 [place], [place] 804636 Assigned MTM Pharmacist 04/07/22 Livan Sharif MD [address], [facility] [address] [place], [place] 659[address] Cardiovascular Disease 05/14/22 Catherine Cm MD [address] [facility] [address] [place], [place] 689795 Cardiovascular Disease 07/21/22 Valery Veronica, PA-C [address] [place] [address] 678375 Physician Credit Risk Specialist Dermatology 07/21/22 Brea Quinn APRN HOME THEATER EXPERIENCE EXPERT 500 [place], [place] 571495 Nurse Practitioner Dermatology 09/21/22 Brea Quinn APRN HOME THEATER EXPERIENCE EXPERT [address] [place] [address] Assigned Surgical Provider 10/09/22 05/01/24 [place] [address] [facility] 300 [place], [place] 621037 Assigned Musculoskeletal Provider 10/09/22 05/01/24 Alfonso Renteria MD [address] [facility] 200 [place], [place] 278206 Assigned Neuroscience Provider 04/02/23 Radha Lomeli APRN HOME THEATER EXPERIENCE EXPERT [address] [place] [address] Assigned Heart and Vascular Provider 05/28/23 Jelena David OD [address] [place] [address] MD Ophthalmology 06/15/23 Pao Joseph, VJ Personal Advocate & Liaison (PAL) Nurse 08/01/23 11/07/23 Esha Grimm PA-C [address] [facility] [place] [phone] Assigned PCP 07/16/23 Valery Veronica PA-C [address] [place] [address] 614565 Physician Credit Risk Specialist Dermatology 09/19/23 Rey Tay MD [address] [place] [address] 657685 Gastroenterology 09/20/23 Rocky Zepeda DO [address] [place] [address] 961715 Physician Gastroenterology 09/20/23 Philip Dumont MD [address] [place] [address] 545785 Physician Ophthalmology 09/22/23 Meredith Carrera PA-C [address] [place] [address] 057155 Assigned Gastroenterology Provider 11/01/23 Neil Kent MD [address] [address] Dermatology 11/02/23 [place] [address] 145907 Neurological Surgery 12/26/23 Audrey Waite PA-C 500 [place] [address] Physician Credit Risk Specialist Dermatology 02/28/24 Valery Veronica PA-C 56[address] [place] [address] Physician Credit Risk Specialist Dermatology 04/10/24 Herminia Hatch MD [facility]5 [place] [address] Assigned Rheumatology Provider 07/02/24 documented as of this encounter
--- OUTSIDE RECORDS SUMMARY | 2024-08-28 18:28 | XMS_ITS | Encounter Summary ---
Author Organization [place] Address [address] [place] [address] Care Team Providers Care Computer Console Operator Name Role Phone Lita Oseguera Unavailable Unavailable Marija Edgar APRN MULTIPLE EFFECT EVAPORATOR OPERATOR Primary Care Provider + Marija Edgar APRN MULTIPLE EFFECT EVAPORATOR OPERATOR Unavailable [phone] Keisha Dotson MD Unavailable Diana Desir [facility] Unavailable [phone] Rain Galaviz PA-C Unavailable [phone] Tavia Wyatt MD Unavailable Erica Farrell APRN MULTIPLE EFFECT EVAPORATOR OPERATOR Unavailable Rich Barrett MD Unavailable Neil Kent MD Unavailable Roney Story DPM Unavailable [phone] Diana Desir [facility] Unavailable Jelena David OD Unavailable Livan Sharif MD Unavailable Livan Sharif MD Unavailable Catherine Cm MD Unavailable + Valery Veronica PA-C Unavailable aCtherine Cm MD Unavailable + Johnny Murillo MD Unavailable [phone] Brea Quinn METALLURGICAL ENGINEER MULTIPLE EFFECT EVAPORATOR OPERATOR Unavailable [phone] Brea Quinn METALLURGICAL ENGINEER MULTIPLE EFFECT EVAPORATOR OPERATOR Unavailable [phone] Jose Francisco Johnson MD Unavailable Livan Sharif MD Unavailable Catherine Cm MD Unavailable + Sydnie Martinez RN Unavailable Unavailable Alfonso Renteria MD Unavailable Esha Grimm PA-C Primary Care Provider Cheng Todd PA-C Unavailable [phone] Radha Lomeli METALLURGICAL ENGINEER MULTIPLE EFFECT EVAPORATOR OPERATOR Unavailable Jelena David OD Unavailable Pao Joseph RN Unavailable Unavailable Esha Grimm PA-C Unavailable [phone] Valery Veronica PA-C Unavailable [phone] Rey Tay MD Unavailable Rocky Zepeda DO Unavailable Philip Dumont MD Unavailable [phone] Meredith Carrera PA-C Unavailable Neil Kent MD Unavailable Juan Pablo Emmanuel MD Unavailable Audrey Waite PA-C Unavailable [phone] Valery Veronica PA-C Unavailable Herminia Hatch MD Unavailable Encounter Details Date Type Department Care Team (Late st Contact Info) Description 07/20/2022 [facility] Medical Advice [facility] [address] [facility] [address] [place] [address] Livan Sharif MD [address] [place] [address] Social History Tobacco Use Types Packs/Day Years [...] How often do you attend hindu or pentecostalism serv ices? Never 09/22/2021 Do [...] points; Administer PHQ-9 if positive 1 05/13/2022 [facility] of Occupat ional Health - Occupational Stress [...] in a detention (including now)? No 09/22/2021 [place] Depression Scale Answer Date Recorded [place] Depression Score 5 01/14/2021 Last EPDS Self Harm Result Not on file 01/14 Education Answer Date Recorded What is the highest level of school you have completed or the highest degree you have received? 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 SUSTAINABILITY CONSULTANT Gender Identity Female 03/02/2021 5:45 PM CDT Sexual Orientation Straight 02/28/2020 12 :51 AM CDT COVID-19 Exposure Response Date Recorded In the last 10 days, have yo u been in contact with someone who was confirmed or suspected to have Coronavirus/COVID-19? No / Unsure 07/23/2022 6:45 AM SUSTAINABILITY CONSULTANT documented as of this encounter Plan of Treatment Upcoming Encounters Date Type Department Care Team (Late st Contact Info) Description 10/23/2024 9:30 AM CDT Office Visit [facility] [address], [address] [place] [address] [place] [address] [address] [place] [address] Johnny Penn MD [address] [facility] [place] [phone] documented as of this encounter Visit Diagnoses [...] as of this encounter Care Teams Computer Console Operator Relationship Specialty Start Date End Date Marija Edgar APRN MULTIPLE EFFECT EVAPORATOR OPERATOR PCP - General Nurse Practitioner 04/30/20 04/14/23 Esha Grimm PA-C [address] [place] [address] PCP - General Family Medicine 05/04/23 Lita Oseguera Personal Advocate & Liaison (PAL) 02/28/20 03/27/23 Marija Edgar APRN MULTIPLE EFFECT EVAPORATOR OPERATOR Assigned PCP 06/08/20 04/29/23 Keisha Dotson MD 909 [place] [address] Assigned Neuroscience Provider 06/04/20 04/01/23 Diana Desir, [facility] 3033 [place] [address] Pharmacist Pharmacist 04/17/21 Rain Galaviz PA-C [address] [place] [address] [address] [place] [address] Physician Design Assembler Dermatology 04/28/21 Tavia Wyatt MD [address] [place] [address] [address] [place] [address] Dermatology 07/14/21 Erica Farrell APRN MULTIPLE EFFECT EVAPORATOR OPERATOR [address] [place] [address] Nurse Practitioner Cardiovascular Disease 09/09/21 Rich Barrett MD 516 [facility], [address] 585665 Physician Ophthalmology 01/21/22 Neil Kent MD 500 [place], [place] 943895 Dermatology 02/24/22 Roney Story DPM [address] [employer] [place] [address] [place], [place] 109537 Assigned Musculoskeletal Provider 03/20/22 08/13/22 Diana Desir, [facility] [address] [place], [place] 748046 Assigned MTM Pharmacist 04/07/22 Jelena David OD 3305 [facility] [place] [address] Assigned Surgical Provider 05/08/22 10/08/22 Livan Sharif MD [address] [place] [address] Cardiovascular Disease 05/14/22 Livan Sharif MD [address] [place] [address] Assigned Heart and Vascular Provider 06/12/22 07/23/22 Catherine Cm MD [address] [facility]00 [place] [address] Cardiovascular Disease 07/21/22 Valery Veronica PA-C 9 [place], [place] 070565 Physician Design Assembler Dermatology 07/21/22 Catherine Cm MD [address] [facility]00 [place] 157305 Assigned Heart and Vascular Provider 07/24/22 11/05/22 Johnny Murillo MD [address] [place] [address] 977504 Assigned Musculoskeletal Provider 08/14/22 10/08/22 Brea Quinn APRN MULTIPLE EFFECT EVAPORATOR OPERATOR [address] [place] [address] [phone] Nurse Practitioner Dermatology 09/21/22 Brea Quinn APRN MULTIPLE EFFECT EVAPORATOR OPERATOR [address] [place] [address] [place] 874412 Assigned Surgical Provider 10/09/22 05/01/24 [place] [address] [facility] [place] [address]177 Assigned Musculoskeletal Provider 10/09/22 05/01/24 Livan Sharif MD [address] [facility]00 [place] 337095 Assigned Heart and Vascular Provider 11/06/22 11/12/22 Catherine Cm MD [address] [place] [address] Assigned Heart and Vascular Provider 11/13/22 05/27/23 Sydnie Martinez RN Personal Advocate & Liaison (PAL) Family Medicine 03/28/23 07/31/23 Alfonso Renteria MD [address] [facility] [address] [place], [place] 806056 Assigned Neuroscience Provider 04/02/23 Cheng Todd PA-C [address] [place] [address] [id number] Assigned PCP 04/30/23 07/15/23 Radha Lomeli APRN MULTIPLE EFFECT EVAPORATOR OPERATOR [address] [place], [place] [address]995 Assigned Heart and Vascular Provider 05/28/23 Jelena David OD [address] [facility] [address] Ophthalmology 06/15/23 Pao Joseph, VJ Personal Advocate & Liaison (PAL) Nurse 08/01/23 11/07/23 Esha Grimm PA-C [address] [place] [phone] Assigned PCP 07/16/23 Valery Veronica PA-C 909 [place], [place] 637295 Physician Design Assembler Dermatology 09/19/23 Rey Tay MD 909 [place], [place] 317095 MD Gastroenterology 09/20/23 Rocky Zepeda DO 500 [place] [address] Physician Gastroenterology 09/20/23 Philip Dumont MD 516 [place], [place] 9[address]115 Physician Ophthalmology 09/22/23 Meredith Carrera PA-C 9 [place] [address] Assigned Gastroenterology Provider 11/01/23 Neil Kent MD [address] 226[address] Dermatology 11/02/23 [place] [address] [address] [facility] [address] [place], [place] 0[address] Neurological Surgery 12/26/23 Audrey Waite PA-C 500 [place] [address] Physician Design Assembler Dermatology 02/28/24 Valery Veronica PA-C 822798 [place] [address] Physician Design Assembler Dermatology 04/10/24 Herminia Hatch MD [address] [place] [address] Assigned Rheumatology Provider 07/02/24 documented as of this encounter
--- OUTSIDE RECORDS SUMMARY | 2024-08-28 18:28 | XMS_ITS | Encounter Summary ---
Author Organization [place] Address [address] [place] [address] Care Team Providers Care Hospice Art Therapist Name Role Phone Diana Desir [facility] Unavailable Rain Galaviz PAUcheC Unavailable Tavia Waytt MD Unavailable Erica Farrell PT [facility] [place] Unavailable Rich Barrett MD Unavailable [phone] Neil Kent MD Unavailable Kendrick Desirelle Stanislav [facility] Unavailable Livan Sharif MD Unavailable Catherine Cm MD Unavailable + Valery Veronica-C Unavailable Brea Quinn PT [facility] [place] Unavailable [phone] Alfonso Renteria MD Unavailable [phone] Esha GrimmC Primary Care Provider Radha Lomeli PT [facility] [place] Unavailable Jelena David OD Unavailable [phone] Esha Grimm PA-C Unavailable [phone] Valery VeronicaC Unavailable [phone] Rey Tay MD Unavailable Rocky Zepeda DO Unavailable Philip Dumont MD Unavailable [phone] Meredith CarreraC Unavailable [phone] Neil Kent MD Unavailable Juan Pablo Emmanuel MD Unavailable [phone] Audrey WaiteC Unavailable [phone] Valery VeronicaC Unavailable [phone] Herminia Hatch MD Unavailable Encounter Details Date Type Department Care Team (Latest Contact Info) Description 08/06/2024 Travel Social History Tobacco Use Types Packs/Day [...] Answer Date Recorded PHQ-2 Score 1 02/07/2024 [facility] - Occupational Stress Questionnaire Answer [...] exercise at this level? 20 min 05/07/2024 [place] Depression Scale Answer Date Recorded [place] Depression Score 5 01/14/2021 Last EPDS Self [...] CDT Legal Sex Female 4:13 AM CLINICAL SYSTEMS ANALYST Gender Identity Female 03/02/2021 5:45 PM CDT Sexual Orientation Straight 02/28/2020 12 :51 AM CDT documented as of this encounter Plan of Treatment Upcoming Encounters Date Type Department Care Team (Late st Contact Info) Description 10/23/2024 9:30 AM CDT Office Visit [facility] Neurology [address], [address] [place] [address] [place] [address] [place] [address] Johnny Penn MD [address] [facility] [place] [address] documented as of this encounter Visit Diagnoses Not on filedocumented in this encounter Additional Health Concerns Assessment Noted Time PHQ-9 Depression Total Score: 3 02/07/20 24 9:33 AM CDT documented as of this encounter Care Teams Hospice Art Therapist Relationship Specialty Start Date End Date Esha Grimm PA-C [address] [place] [address] PCP - General Family Medicine 05/04/23 Diana Desir, [facility] [address] [place] [address] Pharmacist Pharmacist 04/17/21 Rain aGlaviz PA-C [address] [place] [address] [address] [place] [address] Physician Auto Body Repair Teacher Dermatology 04/28/21 Tavia Wyatt MD [address] [place] [address] [address] [place] [address] Dermatology 07/14/21 Erica Farrell APRN [facility] [place] [address] [place] 542625 Nurse Practitioner Cardiovascular Disease 09/09/21 Rich Barrett MD 516 [facility] [address] [place], [place] 407065 Physician Ophthalmology 01/21/22 Neil Kent MD 500 [place], [place] 624995 Dermatology 02/24/22 [facility] [address] [place] [address] Assigned MTM Pharmacist 04/07/22 Livan Sharif MD [address] [place] [address] Cardiovascular Disease 05/14/22 Catherine Cm MD [address] [place] [address] Cardiovascular Disease 07/21/22 Valery Veronica PA-C [address] [place] [address] 792775 Physician Auto Body Repair Teacher Dermatology 07/21/22 Brea Quinn APRN [facility] [address] [place] [address] 951015 Nurse Practitioner Dermatology 09/21/22 Alfonso Renteria MD 5775 [facility] 200 [place], [place] 979676 Assigned Neuroscience Provider 04/02/23 Radha Lomeli APRN [place] [address] [place] [address] Assigned Heart and Vascular Provider 05/28/23 Jelena David OD [address] [place] [address] [place] [address] Ophthalmology 06/15/23 Esha Grimm PA-C [address] [place] [address] Assigned PCP 07/16/23 Valery Veronica PA-C [address] [place] [address] 946525 Physician Auto Body Repair Teacher Dermatology 09/19/23 Rey Tay MD [address] [place] [address] Gastroenterology 09/20/23 Rocky Zepeda DO 500 [place] [address] Physician Gastroenterology 09/20/23 Philip Dumont MD 516 [place] [address] Physician Ophthalmology 09/22/23 Meredith Carrera PA-C 909 [place] [address] Assigned Gastroenterology Provider 11/01/23 Neil Kent MD [address] [address] MD Dermatology 11/02/23 [place] [address] 245237 Neurological Surgery 12/26/23 Audrey Waite PA-C 500 [place] [address] Physician Auto Body Repair Teacher Dermatology 02/28/24 Valery Veronica PA-C 102113 [address] [address] Physician Auto Body Repair Teacher Dermatology 04/10/24 Herminia Hatch MD [facility]5 [place], [place] 26008125 Assigned Rheumatology Provider 07/02/24 documented as of this encounter
--- OUTSIDE RECORDS SUMMARY | 2024-08-28 18:28 | XMS_ITS | Encounter Summary ---
Author Organization [place] Address [address] [place] [address] Care Team Providers Care [employer] Name Role Phone Diana Desir [facility] Unavailable [phone] Rain Galaviz PA-C Unavailable Tavia Wyatt MD Unavailable Erica Farrell APRN FIRE EATER Unavailable Rich Barrett MD Unavailable [phone] Neil Kent MD Unavailable Diana Desir [facility] Unavailable Livan Sharif MD Unavailable Catherine Cm MD Unavailable + Valery Veronica PA-C Unavailable [phone] Brea Quinn SENIOR STACK ENGINEER FIRE EATER Unavailable Brea Quinn SENIOR STACK ENGINEER FIRE EATER Unavailable [phone] Jose Francisco Johnson MD Unavailable Alfonso Renteria MD Unavailable [phone] Esha Grimm PA-C Primary Care Provider Radha Lomeli APRN FIRE EATER Unavailable Jelena David OD Unavailable Pao Joseph RN Unavailable Unavailable Esha Grimm PA-C Unavailable [phone] Valery Veronica PA-C Unavailable Rey Tay MD Unavailable Rocky Zepeda DO Unavailable Philip Dumont MD Unavailable [phone] Meredith Carrera PA-C Unavailable [phone] Neil Kent MD Unavailable Juan Pablo Emmanuel MD Unavailable Audrey Waite PA-C Unavailable [phone] Valery Veronica PA-C Unavailable Herminia Hatch MD Unavailable Encounter Details Date Type Department Care Team (Late st Contact Info) Description 08/25/2023 [facility] [address] [address] [facility] [address] [place] [address] Social History Tobacco Use Types Packs/Day Years [...] How often do you attend [facility] or orthodox services? 1 to 4 [...] Answer Date Recorded PHQ-2 Score 0 06/20/2023 [facility] [...] exercise at this level? 30 min 03/10/2023 [place] Depression Scale Answer Date Recorded [place] [...] PM CDT Legal Sex Female 4:13 AM NURSES DIRECTOR Gender Identity Female 03/02/2021 5:45 PM CDT Sexual Orientation Straight 02/28/2020 12 :51 AM CDT documented as of this encounter Plan of Treatment Upcoming Encounters Date Type Department Care Team (Late st Contact Info) Description 10/23/2024 9:30 AM CDT Office Visit [facility] [address], [address] [place] [address] [place] [address] [address] [place] [address] Johnny Penn MD [address] [place] [address] documented as of this encounter Visit Diagnoses Not on filedocumented in this encounter Additional Health Concerns Infection Onset Date Last Indicated Resolved Time Rule Out COVID-19 12/26/2023 12/26/2023 12/26/2023 9:50 AM CDT Rule Out COVID-19 04/09/2024 04/09/2024 04/10/2024 6:48 PM CDT Assessment Noted Time PHQ-9 Depression Total Score: 4 06/20/20 23 8:40 AM NURSES DIRECTOR documented as of this encounter Care Teams [employer] Relationship Specialty Start Date End Date Esha Grimm PA-C [address] [place] [address] PCP - General Family Medicine 05/04/23 Diana Desir, [facility] [address] [place] [address] Pharmacist Pharmacist 04/17/21 Rain Galaviz PA-C [address] [place] [address] [address] [place] [address] Physician Mobile Phone Salesperson Dermatology 04/28/21 Tavia Wyatt MD [address] [place] [address] [address] [place] [address] Dermatology 07/14/21 Erica Farrell APRN FIRE EATER [address] [facility] [address] [place] [address] Nurse Practitioner Cardiovascular Disease 09/09/21 Rich Barrett MD [address] [place] [address] 161895 Physician Ophthalmology 01/21/22 Neil Kent MD [address] [place] [address] Dermatology 02/24/22 [facility] [address] [place] [address] Assigned [place] Pharmacist 04/07/22 Livan Sharif MD [address] [place] [address] [place] [address] Cardiovascular Disease 05/14/22 Catherine Cm MD [address] [address] Cardiovascular Disease 07/21/22 Valery Veronica, PAUcheC [address] [place] [address] Physician Mobile Phone Salesperson Dermatology 07/21/22 Brea Quinn APRN FIRE EATER [address] [place] [address] Nurse Practitioner Dermatology 09/21/22 Brea Quinn APRN FIRE EATER [address] [place] [address] Assigned Surgical Provider 10/09/22 05/01/24 [place] [address] [address] Assigned Musculoskeletal Provider 10/09/22 05/01/24 Alfonso Renteria MD [address] [facility] [address] [place] [address] Assigned Neuroscience Provider 04/02/23 Radha Lomeli APRN FIRE EATER [address] [place] [address] Assigned Heart and Vascular Provider 05/28/23 Jelena David OD [address] [facility] [place] [address] Ophthalmology 06/15/23 Pao Joseph, VJ Personal Advocate & Liaison (PAL) Nurse 08/01/23 11/07/23 Esha Grimm PA-C [address] [place] [phone] Assigned PCP 07/16/23 Valery Veronica PA-C [address] [place] [address] 315035 Physician Mobile Phone Salesperson Dermatology 09/19/23 Rey Tay MD [address] [place] [address] [phone] Gastroenterology 09/20/23 Rocky Zepeda DO [address] [place] [address] 584035 Physician Gastroenterology 09/20/23 Philip Dumont MD [address] [place] [address] 936815 Physician Ophthalmology 09/22/23 Meredith Carrera PA-C [address] [place] [address] Assigned Gastroenterology Provider 11/01/23 Neil Kent MD [address] [address] Dermatology 11/02/23 [place] [address] [address] Neurological Surgery 12/26/23 Audrey Waite PA-C [address] [place] [address] Physician Mobile Phone Salesperson Dermatology 02/28/24 Valery Veronica PA-C [address] [place] [address] Physician Mobile Phone Salesperson Dermatology 04/10/24 Herminia Hatch MD [facility] [place], [place] [phone] Assigned Rheumatology Provider 07/02/24 documented as of this encounter
--- OUTSIDE RECORDS SUMMARY | 2024-08-28 18:28 | XMS_ITS | Encounter Summary ---
Author Organization [place] Address [address] [place] [address] Care Team Providers Care Lamination Technician Name Role Phone Diana Desir [facility] Unavailable Rain Galaviz PA-C Unavailable Tavia Wyatt MD Unavailable Erica Farrell APRN GREEN TIRE INSPECTOR Unavailable Rich Barrett MD Unavailable [phone] Neil Kent MD Unavailable Diana Desir [facility] Unavailable Livan Sharif MD Unavailable Catherine Cm MD Unavailable + Valery Veronica PA-C Unavailable Brea Quinn PIPER HELPER GREEN TIRE INSPECTOR Unavailable Brea Quinn PIPER HELPER GREEN TIRE INSPECTOR Unavailable Jose Francisco Johnson MD Unavailable Alfonso Renteria MD Unavailable [phone] Esha Grimm PA-C Primary Care Provider [phone] Radha Lomeli APRN GREEN TIRE INSPECTOR Unavailable Jelena David OD Unavailable Pao Joseph RN Unavailable Unavailable Esha Grimm PA-C Unavailable [phone] Valery Veronica PA-C Unavailable [phone] Rey Tay MD Unavailable Rocky Zepeda DO Unavailable Philip Dumont MD Unavailable [phone] Meredith Carrera PA-C Unavailable [phone] Neil Kent MD Unavailable Juan Pablo Emmanuel MD Unavailable [phone] Audrey Waite PA-C Unavailable [phone] Valery Veronica PA-C Unavailable [phone] Herminia Hatch MD Unavailable Encounter Details Date Type Department Care Team (Late st Contact Info) Description 08/25/2023 [facility] Advice [facility] [address] [address] Marija Polanco RN Social History [...] 03/10/2023 How often do you attend [facility] or [facility] services? 1 to 4 times [...] Answer Date Recorded PHQ-2 Score 0 06/20/2023 [facility] Occupat ional Health [...] exercise at this level? 30 min 03/10/2023 Luana Depression Scale Answer Date Recorded Luana Depression Score 5 01/14/2021 Last EPDS Self [...] CDT Legal Sex Female 4:13 AM VICE PRESIDENT OF SALES Gender Identity Female 03/02/2021 5:45 PM CDT Sexual Orientation Straight 02/28/2020 12 :51 AM CDT documented as of this encounter Plan of Treatment Upcoming Encounters Date Type Department Care Team (Late st Contact Info) Description 10/23/2024 9:30 AM CDT Office Visit [facility] Neurology [address], [address] [place] [address] [place] [address] [place] 692607 Johnny Penn MD [address] [place] [address] documented as of this encounter Visit Diagnoses Not on filedocumented in this encounter Additional Health Concerns Infection Onset Date Last Indicated Resolved Time Rule Out COVID-19 12/26/2023 12/26/2023 12/26/2023 9:50 AM CDT Rule Out COVID-19 04/09/2024 04/09/2024 04/10/2024 6:48 PM CDT Assessment Noted Time PHQ-9 Depression Total Score: 4 06/20/20 23 8:40 AM VICE PRESIDENT OF SALES documented as of this encounter Care Teams Lamination Technician Relationship Specialty Start Date End Date Esha Grimm PA-C [address] [place] [address] PCP - General Family Medicine 05/04/23 Diana Desir, [facility] [address] [place], [place] [phone] Pharmacist Pharmacist 04/17/21 Rain Galaviz PA-C [address] [place] [address] [address] [place] [address] Physician Legal Arbitrator Dermatology 04/28/21 Tavia Wyatt MD [address] [place] [address] [address] [place] [address] [phone] Dermatology 07/14/21 Erica Farrell APRN GREEN TIRE INSPECTOR [address] [facility] [address] [place], [place] 4879[address] Nurse Practitioner Cardiovascular Disease 09/09/21 Rich Barrett MD [address] [facility] [address] [place], [place] 294385 Physician Ophthalmology 01/21/22 Neil Kent MD [address] [place], [place] 812645 Dermatology 02/24/22 Diana Desir, [facility] [address] [place] [address] Assigned MTM Pharmacist 04/07/22 Livan Sharif MD [address] [facility] [address] [place] [address] Cardiovascular Disease 05/14/22 Catherine Cm MD [address] [facility] [address] [place] [address] Cardiovascular Disease 07/21/22 Valery Veronica, PA-C [address] [place], [place] [address] Physician Legal Arbitrator Dermatology 07/21/22 Brea Quinn APRN GREEN TIRE INSPECTOR 500 [place], [place] 882375 Nurse Practitioner Dermatology 09/21/22 Brea Quinn APRN GREEN TIRE INSPECTOR [address] [place] [address] 163442 Assigned Surgical Provider 10/09/22 05/01/24 [place] [address] [address] [facility] [address] [place], [place] 364347 Assigned Musculoskeletal Provider 10/09/22 05/01/24 Alfonso Renteria MD [address] [facility] 200 [place], [place] 230486 Assigned Neuroscience Provider 04/02/23 Radha Lomeli APRN GREEN TIRE INSPECTOR [address] [facility] [address] [place] [address] Assigned Heart and Vascular Provider 05/28/23 Jelena David OD [address] [place] [address] MD Ophthalmology 06/15/23 Pao Joseph, VJ Personal Advocate & Liaison (PAL) Nurse 08/01/23 11/07/23 Esha Grimm PA-C [address] [place] [phone] Assigned PCP 07/16/23 Valery Veronica PA-C [address] [place] [address] 572145 Physician Legal Arbitrator Dermatology 09/19/23 Rey Tay MD [address] [place] [address]855 Gastroenterology 09/20/23 Rocky Zepeda DO [address] [place] [address] 320815 Physician Gastroenterology 09/20/23 Philip Dumont MD [address] [place] [address] 746015 Physician Ophthalmology 09/22/23 Meredith Carrera PA-C [address] [place] [address] 744685 Assigned Gastroenterology Provider 11/01/23 Neil Kent MD [address] [place] [address] Dermatology 11/02/23 [place] [address] [address] [phone] Neurological Surgery 12/26/23 Audrey Waite PA-C 500 [place] [address] Physician Legal Arbitrator Dermatology 02/28/24 Valery Veronica PA-C 786013 [place], [place] [address] Physician Legal Arbitrator Dermatology 04/10/24 Herminia Hatch MD [facility]5 [place] [address] Assigned Rheumatology Provider 07/02/24 documented as of this encounter
--- OUTSIDE RECORDS SUMMARY | 2024-08-28 18:28 | XMS_ITS | Encounter Summary ---
Author Organization [facility] Address [address] [place] [address] Care Team Providers Care Surgery Attendant Name Role Phone Diana Desir [facility] Unavailable Rain Galaviz PAUcheC Unavailable Tavia Wyatt MD Unavailable Erica Farrell PAYROLL AND BENEFITS SPECIALIST STRICKLER ATTENDANT Unavailable Rich Barrett MD Unavailable [phone] Neli Kent MD Unavailable Kendrick Desirelle Stanislav [facility] Unavailable Livan Sharif MD Unavailable Catherine Cm MD Unavailable + Valery Veronica-C Unavailable Brea Quinn PAYROLL AND BENEFITS SPECIALIST STRICKLER ATTENDANT Unavailable Alfonso Renteria MD Unavailable [phone] Esha GrimmC Primary Care Provider [phone] Radha Lomeli PAYROLL AND BENEFITS SPECIALIST STRICKLER ATTENDANT Unavailable Jelena David OD Unavailable Alfa, Esha M PA-C Unavailable [phone] Valery Veronica PA-C Unavailable Rey Tay [...] To Contact Diagnoses Palpitations Procedures ZIO PATCH MAIL OUT Fabiano Correa NP [address] [address] Phone: tel: fax: Referral ID Status Reason Start Date Expiration Date V isits Requested Visits Authorized [id number] Pending Review 08/16/2024 08/16/2025 1 1 STANT PROFESSOR OF ECONOMICS Reason for Visit * Reason Comments Tachycardia Encounter Details Date Type Department Care Team (Latest Contact Info) Description 08/16/2024 10:40 AM ASSISTANT PROFESSOR OF ECONOMICS Virtual Visit [facility] [id number] [place] [address] [address] [place] [address] Fabiano Correa NP [address] [id number] Palpitations (Primary Dx) Social History Tobacco Use [...] Score 1 02/07/2024 [facility] - [...] exercise at this level? 20 min 05/07/2024 [place] Depression Scale Answer Date Recorded [place] Depression Score 5 01/14/2021 Last EPDS Self [...] an overnight nursing home, or couch-surfing.) Yes 05/07/2024 Are you [...] CDT Legal Sex Female 4:13 AM ASSISTANT PROFESSOR OF ECONOMICS Gender Identity Female 03/02/2021 5:45 PM CDT Sexual Orientation Straight 02/28/2020 12 :51 AM CDT documented as of this encounter Patient Instructions * Patient Instructions* Fabiano Correa NP - 08/16/2024 10:40 AM ASSISTANT PROFESSOR OF ECONOMICS Images from the original note were not included. Thank you for your phone visit with the [facility] today. Today's plan: -Check a 7-day Zio patch monitor to help assess for any arrhythmias contributing to your recent symptoms. -Continue to try to stay physically active, exercise regularly, and stick to a heart healthy Mediterranean style diet to help with cholesterol management. -We can update you on the results of the Zio patch monitor once they are received. If you have questions or concerns please call the nurse team at [phone] or send a Tego message. Scheduling phone number: [phone] It was a pleasure speaking with you today! Rodrigo Correa APRN, STRICKLER ATTENDANT Nurse Practitioner [facility] Care STANT PROFESSOR OF ECONOMICS STANT PROFESSOR OF ECONOMICS documented in this encounter Progress Notes * Fabiano Correa NP - 08/16/2024 10:40 AM CST Images from the original note were not included. Cardiology Phone Visit Progress Note Service Date: August 16, 2024 Primary Cardiology Team: Dr. Sharif Ms. Kim Johnson is a 24 year old female who is being evaluated via a billable telephone visit. I had the pleasure of speaking with Kim Johnson today over the phone for follow up due to patient request for recent symptoms of palpitations. She is a very pleasant 24 year old female with a pastmedical history notable for SVT, seizure disorder, anxiety/depression, remote smoker, eosinophilic esophagitis, and hiatal hernia. Ms Johnson developed heart racing and was seen in the ED several times during her in 2018.EKGs showed sinus rhythm. Echocardiogram showed normal biventricular function, no significant valvular pathology A follow up Zio patch monitor showed at least one episode of SVT that had a clear sudden onset. She was placed on Metoprolol then. 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 Since then, she has continued to complain of heart racing episodes as well as some intermittent chest pain symptoms. Several event monitors in 2021 showed sinus rhythm/sinus tachycardia, rare ectopies, brief nonsustained SVT, up to 14 seconds, but rate barely over 100 bpm. Echocardiogram showed LVEF 55%, normal RV function, and no valve disease. Exercise stress test in June 2022 showed that she reached 91% of her maximum predicted heart rate, and exercised for 12 minutes No evidence of stress- induced ischemia. She was seen several times in 2022 for chest pain and palpitations Workup has been fairly unremarkable At one visit her symptoms improved with IVFs, questioning a component of volume depletion. 3-day ziopatch monitor (03/2023) showed sinus rhythm with average HR 78 bpm, rare PACs Her symptoms correlated with sinus. 30-day event monitor (03/2023) showed sinus rhythm / sinus tachycardia Symptoms described as heart racing, shortness of breath, chest pain Most recent echocardiogram in May 2023 showed normal LVEF of 60% and no significant valvular pathology. She was last seen in the clinic by my colleague, Radha Lomeli APRN, CNP in February 2023. She has beenseen multiple times over the past few months for palpitations and shortness of breath leading up tothat visit. EKGs have shown sinus rhythm and benign labs. She was diagnosed with eosinophilic esophagitis, gastritis, and hiatal hernia in September 2023. Subsequent 48-hour Zio patch monitor from 03/06- showed predominantly sinus rhythm with symptoms reported correlating to sinus rhythm. One episode of Wenkebach was noted at 6:17 AM - commonly noted in young patients in early AM. Subsequent 14-day cardiac event monitor worn from the end of March 2024 through mid April 2024 demonstratedsinus rhythm with occasional ectopic beats and no episodes of SVT. The patient requested follow-up today as she states that she has been working out more frequently over the past month or so. She has been exercising at least 3 times a day and has noted heart pounding sensation with occasional mild associated chest discomfort. Given her history of SVT, she wantedto get this checked out and to see if she should have another heart monitor checked with her increased exertion and activity level. She otherwise denies other concerns from a cardiac standpoint. ASSESSMENT: 1. Palpitations and chest discomfort. Longstanding issue with extensive cardiac evaluation over thepast couple of years as outlined above which has been unremarkable. 2. 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 Reported strong family history of ASCVD 4. Dyslipidemia PLAN: - Will plan for 7-day Zio patch monitor per the patient's request to further evaluate for any underlying arrhythmias or possible recurrence of SVT given reported increase in palpitations with recent increase in her activity level and exercise over the past month or so. We can update her on these results by phone or Tego message once they are received. - Counseled on continuing to try to stick to a heart healthy diet and trying to exercise regularly to help with cholesterol management. Attempted to provide reassurance regarding recent extensive cardiac evaluation including echocardiogram showing normal biventricular function with no structural abn ormalities and previous stress testing which has been unremarkable along with her young age at 24 that that the suspicion for CAD or ischemic heart disease is quite low, but would be good to continuewith management of risk factors given her family history. Thank you for the opportunity to participate in this pleasant patient's care. We would be happy to see her sooner if needed for any concerns in the meantime. Please kindly note that this document was completed in part using voice recognition software. Although reviewed after completion, some word substitutions and typographical errors may occur. Please contact me if clarification is needed. Rodrigo Correa APRN, STRICKLER ATTENDANT Nurse Practitioner [facility] Provider location: [facility] Patient location: Home Total time on phone call: 12 minutes I spent 20 minutes on the date of encounter of which 12 minutes spent in medical discussion. Reason why video was not performed: Patient did not consent to video. Kim is a 24 year old who is being evaluated via a billable telephone visit. What phone number would you like to be contacted at? [phone] How would you like to obtain your AVS? OtherInboxhart Originating Location (pt. Location): Home Distant Location (provider location): On-site Orders this Visit: No orders of the defined types were placed in this encounter. No orders of the defined types were placed in this encounter. There are no discontinued medications. Encounter Diagnosis Name Primary? Palpitations Yes CURRENT MEDICATIONS: Current Outpatient Medications Medication Sig [...] mg) by mouth daily. 45 tablet 3 Multiple Vitamin (MULTIVITAMIN ADULT PO) omeprazole (PRILOSEC) [...] to twice daily as needed. 60 g 0 tretinoin (RETIN-A) 0.05 % external cream Apply topically at bedtime 45 g 0 triamcinolone (KENALOG) 0.1 % external ointment Apply topically 2 times daily. To psoriasis on bodyor arms/legs until healed then stop 80 g 0 ALLERGIES Allergies Allergen Reactions Vancomycin PAST MEDICAL, SURGICAL, FAMILY HISTORY: History was reviewed and updated as needed, see medical record. SOCIAL HISTORY: Social History Socioeconomic History Marital status: Single Spouse name: Not on file Number of children: Not on file Years of education: Not on file Highest education level: 12th grade Occupational History Not on file Tobacco Use Smoking status: Former Current packs/day: 0.00 Average packs/day: 1 pack/day for 4.0 years (4.0 ttl pk-yrs) Types: Cigarettes, Other Quit date: 12/07/2019 Years since quittin.6 Passive exposure: Past Smokeless tobacco: Never Tobacco comments: 1 year 4 months tobacco free Vaping Use Vaping status: Former Substances: Nicotine Devices: Disposable Substance and Sexual Activity Alcohol use: Not Currently Comment: social Drug use: No Sexual activity: Yes Partners: Male control/protection: I.U.D. Comment: Im getting the IUD March 12 2021 Other Topics Concern Parent/sibling w/ CABG, GA or angioplasty before 65F 55M? No Social History Narrative Not on file Social Drivers of Health Financial Resource Strain: Low Risk (05/07/2024) Financial Resource Strain Within the past 12 months, have you or your family members you live with been unable to get utilities (heat, electricity) when it was really needed?: No Food Insecurity: Low Risk (05/07/2024) Food Insecurity Within the past 12 months, did you worry that your food would run out before you got money to buy more?: No Within the past 12 months, did the food you bought just not last and you didn???t have money to getmore?: No Transportation Needs: Low Risk (05/07/2024) Transportation Needs Within the past 12 months, has lack of transportation kept you from medical appointments, getting your medicines, non-medical meetings or appointments, work, or from getting things that you need?: No Physical Activity: Insufficiently Active (05/07/2024) Exercise Vital Sign Days of Exercise per Week: 2 days Minutes of Exercise per Session: 20 min Stress: Stress Concern Present (05/07/2024) [employer] - Occupational Stress Questionnaire Feeling of Stress : To some extent Social Connections: Moderately Isolated (05/07/2024) Social Connection and Isolation Panel [NHANES] Frequency of Communication with Friends and Family: Three times a week Frequency of Social Gatherings with Friends and Family: Once a week Attends Latter-Day Services: 1 to 4 times per year Active Member of Clubs or Organizations: No Attends Club or Organization Meetings: Never Marital Status: Never Interpersonal Safety: Low Risk (05/08/2024) Interpersonal Safety Do you feel physically and emotionally safe where you currently live?: Yes Within the past 12 months, have you been hit, slapped, kicked or otherwise physically hurt by someone?: No Within the past 12 months, have you been humiliated or emotionally abused in other ways by your partner or ex-partner?: No Housing Stability: Low Risk (05/07/2024) Housing Stability Do you have housing? : Yes Are you worried about losing your housing?: No Review of Systems: Skin: Eyes: Ears/Nose/Throat: Respiratory: No shortness of breath, dyspnea on exertion, cough, or hemoptysis Cardiovascular: positive for palpitations and chest pain Gastrointestinal: Genitourinary: Musculoskeletal: Neurologic: Psychiatric: Hematologic/Lymphatic/Immunologic: Endocrine: Patient Reported Vitals: No pt reported vitals PSYCH: Alert, appropriate affect. RESP: No cough, no audible wheezing, able to talk in full sentences. Remainder of the comprehensive physical exam is unable to be completed due to today's visit being completed via telephone call. There were no vitals taken for this visit. Wt Readings from Last 4 Encounters: 08/03/24 91.2 kg (201 lb) 07/27/24 90.7 kg (200 lb) 06/05/24 90.9 kg (200 lb 4.8 oz) 05/31/24 90.9 kg (200 lb 4.8 oz) Recent Lab Results: LIPID RESULTS: Lab Results Component Value Date CHOL 189 05/08/2024 HDL 43 (L) 05/08/2024 LDL 115 (H) 05/08/2024 TRIG 155 (H) 05/08/2024 LIVER ENZYME RESULTS: Lab Results Component Value Date AST 16 05/08/2024 AST 9 12/13/2020 ALT 20 05/08/2024 ALT 17 12/13/2020 CBC RESULTS: Lab Results Component Value Date WBC 7.8 05/08/2024 WBC 10.1 01/11/2021 RBC 4.69 05/08/2024 RBC 3.92 01/11/2021 HGB 12.3 05/08/2024 HGB 9.5 (L) 01/13/2021 HCT 38.5 05/08/2024 HCT 32.4 (L) 01/11/2021 MCV 82 05/08/2024 MCV 83 01/11/2021 MCH 26.2 (L) 05/08/2024 MCH 25.3 (L) 01/11/2021 MCHC 31.9 05/08/2024 MCHC 30.6 (L) 01/11/2021 RDW 12.6 05/08/2024 RDW 13.7 01/11/2021 PLT 263 05/08/2024 PLT 220 01/11/2021 BMP RESULTS: Lab Results Component Value Date NA 137 05/08/2024 NA 134 12/27/2020 POTASSIUM 4.0 05/08/2024 POTASSIUM 4.1 05/13/2022 POTASSIUM 3.9 12/27/2020 CHLORIDE 103 05/08/2024 CHLORIDE 105 05/13/2022 CHLORIDE 103 12/27/2020 CO2 25 05/08/2024 CO2 26 05/13/2022 CO2 28 12/27/2020 ANIONGAP 9 05/08/2024 ANIONGAP 5 05/13/2022 ANIONGAP 3 12/27/2020 GLC 84 05/08/2024 GLC 78 05/13/2022 GLC 76 12/27/2020 BUN 15.0 05/08/2024 BUN 10 05/13/2022 BUN 6 (L) 12/27/2020 CR 0.66 05/08/2024 CR 0.63 12/27/2020 GFRESTIMATED >90 05/08/2024 GFRESTIMATED >90 12/27/2020 GFRESTBLACK >90 12/27/2020 CECILLE 9.2 05/08/2024 CECILLE 9.1 12/27/2020 STANT PROFESSOR OF ECONOMICS documented in this encounter Plan of Treatment Upcoming Encounters Date Type Department Care Team (Late st Contact Info) Description 10/23/2024 9:30 AM CDT Office Visit [facility] Neurology [address], [address] [place] [address] [place] [address] [facility] [address] [place], [place] [phone] Johnny Penn MD [address] [place], [place] [phone] documented as of this encounter Visit Diagnoses Diagnosis Palpitations- Primary documented in this encounter Additional Health Concerns Assessment Noted Time PHQ-9 Depression Total Score: 3 02/07/20 24 9:33 AM CDT documented as of this encounter Care Teams Surgery Attendant Relationship Specialty Start Date End Date Esha Grimm PA-C [address] [place] [phone] PCP - General Family Medicine 05/04/23 Diana Desir, [facility] [address] [place], [place] [id number] Pharmacist Pharmacist 04/17/21 Rain Galaviz PA-C [address] [place] [address] [address] [address] Physician Building Construction Superintendent Dermatology 04/28/21 Tavia Wyatt MD [address] [place] [address] [address] [address] Dermatology 07/14/21 Erica Farrell APRN STRICKLER ATTENDANT [address] [address] Nurse Practitioner Cardiovascular Disease 09/09/21 Rich Barrett MD [address] [place] [address] [address] [place], [place] 076415 Physician Ophthalmology 01/21/22 Neil Kent MD [address] [place], [place] [phone] Dermatology 02/24/22 Diana Desir, [facility] [address] [place] [address] Assigned MTM Pharmacist 04/07/22 Livan Sharif MD [address] [address] Cardiovascular Disease 05/14/22 Catherine Cm MD [address] [address] Cardiovascular Disease 07/21/22 Valery Veronica, PAUcheC [address] [place] [address] 314735 Physician Building Construction Superintendent Dermatology 07/21/22 Brea Quinn APRN STRICKLER ATTENDANT [address] [place] [id number] Nurse Practitioner Dermatology 09/21/22 Alfonso Renteria MD [address] [facility] [address] [place], [place] 5[address] Assigned Neuroscience Provider 04/02/23 Radha Lomeli APRN STRICKLER ATTENDANT [address] [id number] Assigned Heart and Vascular Provider 05/28/23 Jelena David OD [facility] [facility] [address] [place] [id number] Ophthalmology 06/15/23 Esha Grimm PA-C [address] [place] [phone] Assigned PCP 07/16/23 Valery Veronica PA-C [address] [place] [id number] Physician Building Construction Superintendent Dermatology 09/19/23 Rey Tay MD [address] [place], [place] [phone] Gastroenterology 09/20/23 Rocky Zepeda DO [address] [place] [address] Physician Gastroenterology 09/20/23 Philip Dumont MD [address] [place] [address] Physician Ophthalmology 09/22/23 Meredith Carrera PA-C [address] [place] [address] Assigned Gastroenterology Provider 11/01/23 Neil Kent MD [address] [address] MD Dermatology 11/02/23 [place] [address] [address] Neurological Surgery 12/26/23 Audrey Waite PA-C [address] [place] [address] Physician Building Construction Superintendent Dermatology 02/28/24 Valery Veronica PA-C [id number] [address] [place] [address] Physician Building Construction Superintendent Dermatology 04/10/24 Herminia Hatch MD [facility] [place], [place] [phone] Assigned Rheumatology Provider 07/02/24 documented as of this encounter
--- OUTSIDE RECORDS SUMMARY | 2024-08-28 18:28 | XMS_ITS | Encounter Summary ---
Author Organization [facility] Address [address] [place] [address] Care Team Providers Care Harnessmaker Apprentice Name Role Phone Lita Oseguera Unavailable Unavailable Marija Edgar APRN MANAGER CODING Primary Care Provider + Marija Edgar APRN MANAGER CODING Unavailable [phone] Keisha Dotson MD Unavailable [phone] Diana Desir [facility] Unavailable Rain Galaviz PA-C Unavailable Tavia Wyatt MD Unavailable Erica Farrell APRN MANAGER CODING Unavailable Rich Barrett MD Unavailable Neil Kent MD Unavailable Roney Story DPM Unavailable Diana Desir [facility] Unavailable Jelena David OD Unavailable Liavn Sharif MD Unavailable Livan Sharif MD Unavailable Catherine Cm MD Unavailable + Valery Veronica PA-C Unavailable Catherine Cm MD Unavailable + Johnny Murillo MD Unavailable [phone] Brea Quinn HEBREW PROFESSOR MANAGER CODING Unavailable [phone] Brae Quinn HEBREW PROFESSOR MANAGER CODING Unavailable [phone] Jose Francisco Johnson MD Unavailable Livan Sharif MD Unavailable Catherine Cm MD Unavailable + Sydnie Martinez RN Unavailable Unavailable Alfonso Renteria MD Unavailable Esha Grimm PA-C Primary Care Provider Cheng Todd PA-C Unavailable [phone] Radha Lomeli HEBREW PROFESSOR MANAGER CODING Unavailable Jelena David OD Unavailable Pao Joseph RN Unavailable Unavailable Esha Grimm PA-C Unavailable [phone] Valery Veronica PA-C Unavailable [phone] Rey Tay MD Unavailable Rocky Zepeda DO Unavailable Philip Dumont MD Unavailable [phone] Meredith Carrera PA-C Unavailable Neil Kent MD Unavailable Juan Pablo Emmanuel MD Unavailable Audrey Waite PA-C Unavailable [phone] Valery Veronica PA-C Unavailable Herminia Hatch MD Unavailable Reason for Visit * Reason Onset Date Comments Appointment 06/14/2022 Stress test and monitor on the same day Encounter Details Date Type Department Care Team (Late st Contact Info) Description 06/14/2022 Telephone [facility] [address] [facility] [address] [place] [address] Livan Sharif MD [address] [place] [facility] [address] [place] [phone] Appointment (Stress test and monitor on the [...] How often do you attend christian or yazdanism serv ices? Never 09/22/2021 Do [...] points; Administer PHQ-9 if positive 1 05/13/2022 [facility] - [...] in a correction (including now)? 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 Yes 06/16/2022 12:32 PM CARPENTER'S ASSISTANT documented as of this encounter Miscellaneous Notes * Telephone Encounter - Amalia Matute MA - 06/14/2022 9:30 AM CST [facility] Call Center Phone Message May a detailed message be left on voicemail: yes Reason for Call: Other: Pt is needing to reschedule her stress test and ziopatch monitor on the same day. Fridays work best or -Th at 3:30. Please call pt back to schedule. Thank you Action Taken: Message routed to: Other: Cardiology Travel Screening: Not Applicable Thank you! [facility] ENTER'S ASSISTANT documented in this encounter Plan of Treatment Upcoming Encounters Date Type Department Care Team (Late st Contact Info) Description 10/23/2024 9:30 AM CDT Office Visit [facility] Neurology [facility]ics - [address], [address] [place] [address] [place] [address] [place] [phone] Johnny Penn MD 6545 [facility] [place], [place] [address] documented as of this encounter Visit Diagnoses Not on filedocumented in this encounter Additional Health Concerns Infection Onset Date Last Indicated Resolved Time COVID-19 06/09/2022 06/09/2022 06/30/2022 11:4 1 PM CARPENTER'S ASSISTANT Rule Out COVID-19 11/10/2022 11/10/2022 11/11/2022 12:17 PM CDT Rule Out COVID-19 03/07/2023 03/07/2023 03/07/2023 1:20 PM CDT Rule Out COVID-19 12/26/2023 12/26/2023 12/26/2023 9:50 AM CDT Rule Out COVID-19 04/09/2024 04/09/2024 04/10/2024 6:48 PM CDT Assessment Noted Time PHQ-9 Depression Total Score: 3 05/13/20 8:49 PM CDT documented as of this encounter Care Teams Harnessmaker Apprentice Relationship Specialty Start Date End Date Marija Edgar APRN MANAGER CODING PCP - General Nurse Practitioner 04/30/20 04/14/23 Esha Grimm PA-C [address] [place] [phone] PCP - General Family Medicine 05/04/23 Lita Oseguera Personal Advocate & Liaison (PAL) 02/28/20 03/27/23 Marija Edgar APRN MANAGER CODING Assigned PCP 06/08/20 04/29/23 Keisha Dotson MD [address] [place] [address] [phone] Assigned Neuroscience Provider 06/04/20 04/01/23 Diana Desir [facility] [address] [place] [address] Pharmacist Pharmacist 04/17/21 Rain Galaviz PA-C [address] [place] [address] [address] [facility] [place] [address] Physician Claims Investigator Dermatology 04/28/21 Tavia Wyatt MD [address] [place] [address] [address] [facility] [address] Dermatology 07/14/21 Erica Farrell APRN MANAGER CODING [address] [place], [place] 883885 Nurse Practitioner Cardiovascular Disease 09/09/21 Rich Barrett MD 516 [facility] 9A [place], [place] 697[address] Physician Ophthalmology 01/21/22 Neil Kent MD [address] [place] [address] 957585 Dermatology 02/24/22 Roney Story DPM 33576 [facility] 300 [place], [place] 127407 Assigned Musculoskeletal Provider 03/20/22 08/13/22 Diana Desir [facility] [address] [place] [address] Assigned MTM Pharmacist 04/07/22 [place] [address] [place] [address] [place] [address] Assigned Surgical Provider 05/08/22 10/08/22 Livan Sharif MD [address], [facility] [address] [place] [address] Cardiovascular Disease 05/14/22 Livan Sharif MD [address], [facility]00 [place] [address] Assigned Heart and Vascular Provider 06/12/22 07/23/22 Catherine Cm MD [address] [facility]00 [place] [address] Cardiovascular Disease 07/21/22 Valery Veronica, PA-C [address] [place] [address] Physician Claims Investigator Dermatology 07/21/22 Catherine Cm MD [address] [facility]00 [place] [address] Assigned Heart and Vascular Provider 07/24/22 11/05/22 Johnny Murillo MD [facility] [address] [address] Assigned Musculoskeletal Provider 08/14/22 10/08/22 Brea Quinn APRN MANAGER CODING [address] [place] [address] Nurse Practitioner Dermatology 09/21/22 Brea Quinn APRN MANAGER CODING 6401 [facility] [place] [address] Assigned Surgical Provider 10/09/22 05/01/24 [place] [address] [address] [facility] 300 [place] [address] Assigned Musculoskeletal Provider 10/09/22 05/01/24 Livan Sharif MD [address] [facility] [address] [place] [address] Assigned Heart and Vascular Provider 11/06/22 11/12/22 Catherine Cm MD [address] [facility]00 [place] 542205 Assigned Heart and Vascular Provider 11/13/22 05/27/23 Sydnie Martinez, VJ Personal Advocate & Liaison (PAL) Family Medicine 03/28/23 07/31/23 Alfonso Renteria MD 5775 [facility] 200 [place] [address] Assigned Neuroscience Provider 04/02/23 Cheng Todd PA-C [address] [place] [address] Assigned PCP 04/30/23 07/15/23 Radha Lomeli APRN MANAGER CODING [address] [place] [address] Assigned Heart and Vascular Provider 05/28/23 Jelena David OD [address] [facility] [address] MD Ophthalmology 06/15/23 Pao Joseph, RN Personal Advocate & Liaison (PAL) Nurse 08/01/23 11/07/23 Esha Grimm PA-C [address] [place] [phone] Assigned PCP 07/16/23 Valery Veronica PA-C [address] [place] [address] 353905 Physician Claims Investigator Dermatology 09/19/23 Rey Tay MD [address] [place] [address] 233925 Gastroenterology 09/20/23 Rocky Zepeda DO [address] [place] [address] 944895 Physician Gastroenterology 09/20/23 Philip Dumont MD [address] [place] [address] 651335 Physician Ophthalmology 09/22/23 Meredith Carrera PA-C [address] [place] [address] 146935 Assigned Gastroenterology Provider 11/01/23 Neil Kent MD [address] [place] [address] 600860 Dermatology 11/02/23 [place] [address] [address] Neurological Surgery 12/26/23 Audrey Waite PA-C 500 [place] [address] Physician Claims Investigator Dermatology 02/28/24 Valery Veronica PA-C [address] [place] [address] Physician Claims Investigator Dermatology 04/10/24 Herminia Hatch MD [facility]5 [place], [place] [phone] Assigned Rheumatology Provider 07/02/24 documented as of this encounter
--- OUTSIDE RECORDS SUMMARY | 2024-08-28 18:29 | XMS_ITS | Encounter Summary ---
Author Organization [place] [facility] Address [address] [place] [address] Care Team Providers Care Honey Producer Name Role Phone Diana Desir [facility] Unavailable Rain Galaviz PAUcheC Unavailable Tavia Wyatt MD Unavailable Erica Farrell GUSSET MAKER CATHODE BUILDER Unavailable Rich Barrett MD Unavailable [phone] Neil Kent MD Unavailable Kendrick Desirelle Stanislav [facility] Unavailable [phone] Livan Sharif MD Unavailable Catherine Cm MD Unavailable + Valery Veronica-C Unavailable [phone] Brea Quinn GUSSET MAKER CATHODE BUILDER Unavailable Alfonso Renteria MD Unavailable [phone] Esha GrimmC Primary Care Provider Radha Lomeli GUSSET MAKER CATHODE BUILDER Unavailable Jelena David OD Unavailable Esha Grimm PA-C Unavailable [phone] Valery VeronicaC Unavailable [phone] Rey Tay MD Unavailable Rocky Zepeda DO Unavailable Philip Dumont MD Unavailable [phone] Meredith CarreraC Unavailable [phone] Neil Kent MD Unavailable Juan Pablo Emmanuel MD Unavailable [phone] Audrey WaiteC Unavailable [phone] Valery VeronicaC Unavailable [phone] Herminia Hatch MD Unavailable Encounter Details Date Type Department Care Team (Latest Contact Info) Description 08/03/2024 Travel Social History Tobacco Use Types Packs/Day [...] Answer Date Recorded PHQ-2 Score 1 02/07/2024 [facility] - Occupational Stress Questionnaire Answer [...] exercise at this level? 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 Gender Identity Female 03/02/2021 5:45 PM CDT Sexual Orientation Straight 02/28/2020 12 :51 AM CDT documented as of this encounter Plan of Treatment Upcoming Encounters Date Type Department Care Team (Late st Contact Info) Description 10/23/2024 9:30 AM CDT Office Visit [facility] Neurology [address], [address] [place] [address] [place] [address] [place] [address] Johnny Penn MD 6545 [facility] [place] 8[address] documented as of this encounter Visit Diagnoses Not on filedocumented in this encounter Additional Health Concerns Assessment Noted Time PHQ-9 Depression Total Score: 3 02/07/20 24 9:33 AM CDT documented as of this encounter Care Teams Honey Producer Relationship Specialty Start Date End Date Esha Grimm PA-C [address] [place] [address] PCP - General Family Medicine 05/04/23 Diana Desir, [facility] [address] [place] [address] Pharmacist Pharmacist 04/17/21 Rain Galaviz PA-C [address] [place] [address] [address] [place] [address] Physician Media Monitor Dermatology 04/28/21 Tavia Wyatt MD [address] [place] [address] [address] [place] [address] Dermatology 07/14/21 Erica Farrell APRN CATHODE BUILDER [address] [place] [address]85195 Nurse Practitioner Cardiovascular Disease 09/09/21 Rich Barrett MD 516 [facility] 9A [place], [place] 9[address] Physician Ophthalmology 01/21/22 Neil Kent MD 500 [place], [place] 071215 Dermatology 02/24/22 [facility] [address] [place] [address] Assigned MTM Pharmacist 04/07/22 Livan Sharif MD [address] [place] [address] Cardiovascular Disease 05/14/22 Catherine Cm MD [address] [place] [address] Cardiovascular Disease 07/21/22 Valery Veronica PA-C [address] [place] [address] 716645 Physician Media Monitor Dermatology 07/21/22 Brea Quinn APRN CATHODE BUILDER [address] [place] [address] 445855 Nurse Practitioner Dermatology 09/21/22 Alfonso Renteria MD 5775 [facility] 200 [place], [place] 491436 Assigned Neuroscience Provider 04/02/23 Radha Lomeli APRN CATHODE BUILDER [address] [place] [address] Assigned Heart and Vascular Provider 05/28/23 Jelena David OD [address] [place] [address] [place] [address] Ophthalmology 06/15/23 Esha Grimm PA-C [address] [place] [address]83 Assigned PCP 07/16/23 Valery Veroinca PA-C [address] [place] [address] 194055 Physician Media Monitor Dermatology 09/19/23 Rey Tay MD [address] [place] [address] Gastroenterology 09/20/23 Rocky Zepeda DO 500 [place] [address] Physician Gastroenterology 09/20/23 Philip Dumont MD 516 [place] [address] Physician Ophthalmology 09/22/23 Meredith Carrera PA-C 909 [place] [address] Assigned Gastroenterology Provider 11/01/23 Neil Kent MD [address] [address] MD Dermatology 11/02/23 [place] [address] [phone] Neurological Surgery 12/26/23 Audrey Wa[place] PA-C 500 [place] [address] Physician Media Monitor Dermatology 02/28/24 Valery Veronica PA-C 135646 [place] [address] Physician Media Monitor Dermatology 04/10/24 Herminia Hatch MD [facility]5 [place], [place] [address]76[address]125 Assigned Rheumatology Provider 07/02/24 documented as of this encounter
--- OUTSIDE RECORDS SUMMARY | 2024-08-28 18:29 | XMS_ITS | Encounter Summary ---
Author Organization [place] [facility] Address [address] [place] [address] Care Team Providers Care Geologic Technician Name Role Phone Diana Desir [facility] Unavailable Rain Galaviz PA-C Unavailable [phone] Tavia Wyatt MD Unavailable Erica Farrell APRN AGRICULTURAL SPECIALIST Unavailable Rich Barrett MD Unavailable [phone] Neil Kent MD Unavailable Diana Desir [facility] Unavailable Livan Sharif MD Unavailable Catherine Cm MD Unavailable + Valery Veronica-C Unavailable Brea Quinn MANAGER POOL AGRICULTURAL SPECIALIST Unavailable [phone] Brea Quinn MANAGER POOL AGRICULTURAL SPECIALIST Unavailable [phone] Jose Francisco Johnson MD Unavailable Sydnie Martinez RN Unavailable Unavailable Alfonso Renteria MD Unavailable [phone] Esha Grimm PA-C Primary Care Provider [phone] Radha Lomeli APRN AGRICULTURAL SPECIALIST Unavailable Jelena David OD Unavailable Pao Joseph RN Unavailable Unavailable Esha Grimm PA-C Unavailable [phone] Valery Veronica PA-C Unavailable Rey Tay MD Unavailable Rocky Zepeda DO Unavailable Philip Dumont MD Unavailable [phone] Meredith Carrera PA-C Unavailable [phone] Neil Kent MD Unavailable Juan Pablo Emmanuel MD Unavailable Audrey Waite PA-C Unavailable Valery Veronica PA-C Unavailable Herminia Hatch MD Unavailable Encounter Details Date Type Department Care Team (Late st Contact Info) Description 07/29/2023 [facility] [place] [facility] Advice [address] [address] Pao Joseph, RN Social History [...] do you attend [facility] or tenriism services? 1 to 4 [...] Answer Date Recorded PHQ-2 Score 0 06/20/2023 [facility] [place] [facility] Occupat ional Health - Occupational Stress [...] exercise at this level? 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 Gender Identity Female 03/02/2021 5:45 PM CDT Sexual Orientation Straight 02/28/2020 12 :51 AM CDT documented as of this encounter Plan of Treatment Upcoming Encounters Date Type Department Care Team (Late st Contact Info) Description 10/23/2024 9:30 AM CDT Office Visit [facility] Neurology [address], [address] [place] [address] [place] [address] [place] 119287 Johnny Penn MD [address] [place] [address] documented as of this encounter Visit Diagnoses Not on filedocumented in this encounter Additional Health Concerns Infection Onset Date Last Indicated Resolved Time Rule Out COVID-19 12/26/2023 12/26/2023 12/26/2023 9:50 AM CDT Rule Out COVID-19 04/09/2024 04/09/2024 04/10/2024 6:48 PM CDT Assessment Noted Time PHQ-9 Depression Total Score: 4 06/20/20 23 8:40 AM METALWORKING INSTRUCTOR documented as of this encounter Care Teams Geologic Technician Relationship Specialty Start Date End Date Esha Grimm PA-C [address] [place] [address] PCP - General Family Medicine 05/04/23 Diana Desir, [facility] [address] [place], [place] 874[address] Pharmacist Pharmacist 04/17/21 Rain Galaviz PA-C [address] [place] [address] [address] [place] [address] Physician Senior Software Developer Dermatology 04/28/21 Tavia Wyatt MD [address] [place] [address] [place] [address] [phone] Dermatology 07/14/21 Erica Farrell APRN AGRICULTURAL SPECIALIST [address] [facility] [address] [place], [place] 041195 Nurse Practitioner Cardiovascular Disease 09/09/21 Rich Barrett MD [address] 078405 Physician Ophthalmology 01/21/22 Neil Kent MD 500 [place], [place] 495795 Dermatology 02/24/22 Diana Desir, [facility] 3033 [place], [place] 978506 Assigned MTM Pharmacist 04/07/22 Livan Sharif MD [address] [facility] [address], [facility] [address] [place], [place] 923[address] Cardiovascular Disease 05/14/22 Catherine Cm MD [address] [facility] [address] [place], [place] 828895 Cardiovascular Disease 07/21/22 Valery Veronica, PA-C 909 [place], [place] 695605 Physician Senior Software Developer Dermatology 07/21/22 Brea Quinn APRN AGRICULTURAL SPECIALIST 500 [place], [place] 444825 Nurse Practitioner Dermatology 09/21/22 Brea Quinn APRN AGRICULTURAL SPECIALIST [address] [place] [address] 144472 Assigned Surgical Provider 10/09/22 05/01/24 [place] [address] [facility] 300 [place], [place] 084607 Assigned Musculoskeletal Provider 10/09/22 05/01/24 Sydnie Martinez RN Personal Advocate & Liaison (PAL) Family Medicine 03/28/23 07/31/23 Alfonso Renteria MD 5775 [facility] 200 [place] [address] Assigned Neuroscience Provider 04/02/23 Radha Lomeli APRN AGRICULTURAL SPECIALIST [address] [place] [address] Assigned Heart and Vascular Provider 05/28/23 Jelena David OD 3[address] [facility] [place] [address] MD Ophthalmology 06/15/23 Pao Joseph, VJ Personal Advocate & Liaison (PAL) Nurse 08/01/23 11/07/23 Esha Grimm PA-C [address] [place] [phone] Assigned PCP 07/16/23 Valery Veronica PA-C [address] [place] [address] 531145 Physician Senior Software Developer Dermatology 09/19/23 Rey Tay MD [address] [place] [address] 787435 Gastroenterology 09/20/23 Rocky Zepeda DO [address] [place] [address] 600695 Physician Gastroenterology 09/20/23 Philip Dumont MD [address] [place] [address] 586965 Physician Ophthalmology 09/22/23 Meredith Carrera PA-C [address] [place] [address] Assigned Gastroenterology Provider 11/01/23 Neil Kent MD [address] [address] Dermatology 11/02/23 [place] [address] [place] [address] [address] Neurological Surgery 12/26/23 Audrey Waite PA-C 500 [place] [address] Physician Senior Software Developer Dermatology 02/28/24 Valery Veronica PA-C 233668 [place], [place] [address] Physician Senior Software Developer Dermatology 04/10/24 Herminia Hatch MD [facility]5 [place], [place] 29[address] Assigned Rheumatology Provider 07/02/24 documented as of this encounter
--- OUTSIDE RECORDS SUMMARY | 2024-08-28 18:29 | XMS_ITS | Encounter Summary ---
Author Organization [place] Address [address] [place] [address] Care Team Providers Care Barrel Lathe Operator Inside Name Role Phone Diana Desir [facility] Unavailable Rain Galaviz PA-C Unavailable Tavia Wyatt MD Unavailable Erica Farrell APRN PRODUCT SAFETY COORDINATOR Unavailable Rich Barrett MD Unavailable [phone] Neil Kent MD Unavailable Diana Desir [facility] Unavailable Livan Sharif MD Unavailable Catherine Cm MD Unavailable + Valery Veronica PA-C Unavailable [phone] Brea Quinn RECEIVABLE CLERK PRODUCT SAFETY COORDINATOR Unavailable Brea Quinn RECEIVABLE CLERK PRODUCT SAFETY COORDINATOR Unavailable Jose Francisco Johnson MD Unavailable Alfonso Renteria MD Unavailable [phone] Esha Grimm PA-C Primary Care Provider [phone] Radha Lomeli APRN PRODUCT SAFETY COORDINATOR Unavailable Jelena David OD Unavailable Pao Joseph RN Unavailable Unavailable Esha Grimm PA-C Unavailable [phone] Valery Veronica PA-C Unavailable Rey Tay MD Unavailable Rocky Zepeda DO Unavailable Philip Dumont MD Unavailable [phone] Meredith Carrera PA-C Unavailable [phone] Neil Kent MD Unavailable Juan Pablo Emmanuel MD Unavailable [phone] Audrey Waite PA-C Unavailable [phone] Valery Veronica PA-C Unavailable Herminia Hatch MD Unavailable Encounter Details Date Type Department Care Team (Late st Contact Info) Description 08/10/2023 [facility] [address] [address] Esha Grimm PA-C [id number] [place] [phone] Social History Tobacco Use Types Packs/Day [...] attend [facility] or cheondoism services? 1 to 4 times [...] PHQ-2 Score 0 06/20/2023 [facility] - [...] exercise at this level? 30 min 03/10/2023 Oto Depression Scale Answer Date Recorded Oto Depression Score 5 01/14/2021 Last EPDS Self [...] PM CDT Legal Sex Female 4:13 AM PUBLIC WORKS LABORER Gender Identity Female 03/02/2021 5:45 PM CDT Sexual Orientation Straight 02/28/2020 12 :51 AM CDT documented as of this encounter Miscellaneous Notes * Telephone Encounter - Asiya Reddy RN - 08/10/2023 11:40 AM PUBLIC WORKS LABORER Esha- see Infrafonet message below. Patient did call to see if E-Visit would be addressed today. No immediate concern at this time. Advised UC if needed sooner. Asiya Reddy RN IC WORKS LABORER documented in this encounter Plan of Treatment Upcoming Encounters Date Type Department Care Team (Late st Contact Info) Description 10/23/2024 9:30 AM CDT Office Visit [facility] Neurology [facility] - [address], [address] [place] [address] [place] [address] [place], [place] [id number] Johnny Penn MD [address] [place] [id number] documented as of this encounter Visit Diagnoses Not on filedocumented in this encounter Additional Health Concerns Infection Onset Date Last Indicated Resolved Time Rule Out COVID-19 12/26/2023 12/26/2023 12/26/2023 9:50 AM CDT Rule Out COVID-19 04/09/2024 04/09/2024 04/10/2024 6:48 PM CDT Assessment Noted Time PHQ-9 Depression Total Score: 4 06/20/20 23 8:40 AM PUBLIC WORKS LABORER documented as of this encounter Care Teams Barrel Lathe Operator Inside Relationship Specialty Start Date End Date Esha Grimm PA-C [address] [place] [phone] PCP - General Family Medicine 05/04/23 Diana Desir, [facility] [address] [place] [address] Pharmacist Pharmacist 04/17/21 Rain Galaviz PA-C [address] [place] [address] [address] [place] [address] Physician Furrier Apprentice Dermatology 04/28/21 Tavia Wyatt MD [address] [place] [address] [address] [place] [facility] [place] [id number] Dermatology 07/14/21 Erica Farrell APRN PRODUCT SAFETY COORDINATOR [address] [place], [place] 722385 Nurse Practitioner Cardiovascular Disease 09/09/21 Rich Barrett MD 516 [facility] 9A [place], [place] 589485 Physician Ophthalmology 01/21/22 Neil Kent MD 500 [place], [place] 170925 Dermatology 02/24/22 Diana Desir, [facility] [address] [place], [place] 736176 Assigned [facility] Pharmacist 04/07/22 Livan Sharif MD [address], [facility]00 [place] [address] Cardiovascular Disease 05/14/22 Catherine Cm MD 6405 [facility] S [address] [address] Cardiovascular Disease 07/21/22 Valery Veronica, PA-C [address] [place] [address] 573585 Physician Furrier Apprentice Dermatology 07/21/22 Brea Quinn APRN PRODUCT SAFETY COORDINATOR 500 [place], [place] 774805 Nurse Practitioner Dermatology 09/21/22 Brea Quinn APRN PRODUCT SAFETY COORDINATOR 6401 [facility] [place] 836062 Assigned Surgical Provider 10/09/22 05/01/24 [place] [address] [facility] 300 [place] [address] Assigned Musculoskeletal Provider 10/09/22 05/01/24 Alfonso Renteria MD 5775 [facility] 200 [place] [address] Assigned Neuroscience Provider 04/02/23 Radha Lomeli APRN PRODUCT SAFETY COORDINATOR 6405 [facility] [address] [place] [address] Assigned Heart and Vascular Provider 05/28/23 Jelena David OD [address] [facility] [address] Ophthalmology 06/15/23 Pao Joseph, VJ Personal Advocate & Liaison (PAL) Nurse 08/01/23 11/07/23 Esha Grimm PA-C [address] [place] [phone] Assigned PCP 07/16/23 Valery Veronica PA-C [address] [place] [address] Physician Furrier Apprentice Dermatology 09/19/23 Rey Tay MD [address] [place] [address] Gastroenterology 09/20/23 Rocky Zepeda DO [address] [place] [address] Physician Gastroenterology 09/20/23 Philip Dumont MD 516 [place] [address] Physician Ophthalmology 09/22/23 Meredith Carrera PA-C [address] [place] [address] Assigned Gastroenterology Provider 11/01/23 Neil Kent MD [address] [address] MD Dermatology 11/02/23 [place] [address] [address] Neurological Surgery 12/26/23 Audrey Waite PA-C 500 [place] [address] Physician Furrier Apprentice Dermatology 02/28/24 Valery Veronica PA-C 758824 [place] [address] Physician Furrier Apprentice Dermatology 04/10/24 Herminia Hatch MD 1875 [place], [place] 13870125 Assigned Rheumatology Provider 07/02/24 documented as of this encounter
--- OUTSIDE RECORDS SUMMARY | 2024-08-28 18:29 | XMS_ITS | Encounter Summary ---
Author Organization [place] Address [address] [place] [address] Care Team Providers Care Junior Database Administrator Name Role Phone Diana Desir [facility] Unavailable Rain Galaviz PAUcheC Unavailable Tavia Wyatt MD Unavailable Erica Farrell MANUFACTURING SYSTEMS ENGINEER SUPERVISOR ELECTRONIC TESTING Unavailable Rich Barrett MD Unavailable [phone] Neil Kent MD Unavailable Kendrick Desirelle Stanislav [facility] Unavailable Livan Sharif MD Unavailable Catherine Cm MD Unavailable + Valery Veronica-C Unavailable [phone] Brea Quinn MANUFACTURING SYSTEMS ENGINEER SUPERVISOR ELECTRONIC TESTING Unavailable Alfonso Renteria MD Unavailable [phone] Esha GrimmC Primary Care Provider Radha Lomeli MANUFACTURING SYSTEMS ENGINEER SUPERVISOR ELECTRONIC TESTING Unavailable Jelena David OD Unavailable Esha Grimm PA-C Unavailable [phone] Valery VeronicaC Unavailable [phone] Rey Tay MD Unavailable Rocky Zepeda DO Unavailable Philip Dumont MD Unavailable [phone] Meredith CarreraC Unavailable [phone] Neil Kent MD Unavailable Juan Pablo Emmanuel MD Unavailable [phone] Audrey WaiteC Unavailable [phone] Valery VeronicaC Unavailable [phone] Herminia Hatch MD Unavailable Encounter Details Date Type Department Care Team (Latest Contact Info) Description 07/27/2024 Travel Social History Tobacco Use Types Packs/Day [...] How often do you attend chur or synagogue services? 1 to 4 times [...] Answer Date Recorded PHQ-2 Score 1 02/07/2024 [facility] - Occupational Stress Questionnaire Answer Date [...] exercise at this level? 20 min 05/07/2024 [place]owe Depression Scale Answer Date Recorded [place]owe Depression Score 5 01/14/2021 Last EPDS Self [...] PM CDT Legal Sex Female 4:13 AM TORTILLA MAKER Gender Identity Female 03/02/2021 5:45 PM CDT Sexual Orientation Straight 02/28/2020 12 :51 AM CDT documented as of this encounter Plan of Treatment Upcoming Encounters Date Type Department Care Team (Late st Contact Info) Description 10/23/2024 9:30 AM CDT Office Visit [facility] Neurology [address], [address] [place] [address] [place] [address] [place] [address] Johnny Penn MD [address] [facility] [place] 66[address]65 documented as of this encounter Visit Diagnoses Not on filedocumented in this encounter Additional Health Concerns Assessment Noted Time PHQ-9 Depression Total Score: 3 02/07/20 24 9:33 AM CDT documented as of this encounter Care Teams Junior Database Administrator Relationship Specialty Start Date End Date Esha Grimm PA-C [address] [place] [address] PCP - General Family Medicine 05/04/23 Diana Desir, [facility] [address] [place] [address] Pharmacist Pharmacist 04/17/21 Rain Galaviz PA-C [address] [place] [address] [address] [place] [address] Physician Sugar Laboratory Assistant Dermatology 04/28/21 Tavia Wyatt MD [address] [place] [address] [address] [place] [address] Dermatology 07/14/21 Erica Farrell APRN SUPERVISOR ELECTRONIC TESTING [address] [place] [address] Nurse Practitioner Cardiovascular Disease 09/09/21 Rich Barrett MD [address] [facility] 9A [place], [place] [address] Physician Ophthalmology 01/21/22 Neil Kent MD 500 [place], [place] 212895 Dermatology 02/24/22 [facility] [address] [place] [address] Assigned MTM Pharmacist 04/07/22 Livan Sharif MD [address] [place] [address] Cardiovascular Disease 05/14/22 Catherine Cm MD [address] [place] [address] Cardiovascular Disease 07/21/22 Valery Veronica PA-C [address] [place] [address] 370235 Physician Sugar Laboratory Assistant Dermatology 07/21/22 Brea Quinn APRN SUPERVISOR ELECTRONIC TESTING [address] [place] [address] 273575 Nurse Practitioner Dermatology 09/21/22 Alfonso Renteria MD 5775 [facility] 200 [place], [place] 242746 Assigned Neuroscience Provider 04/02/23 Radha Lomeli APRN SUPERVISOR ELECTRONIC TESTING [address] [place] [address] Assigned Heart and Vascular Provider 05/28/23 Jelena David OD [address] [place] [address] [place] [address] Ophthalmology 06/15/23 Esha Grimm PA-C [address] [place] [address] Assigned PCP 07/16/23 Valery Veronica PA-C [address] [place] [address] 634565 Physician Sugar Laboratory Assistant Dermatology 09/19/23 Rey Tay MD [address] [place] [address] Gastroenterology 09/20/23 Rocky Zepeda DO 500 [place] [address] Physician Gastroenterology 09/20/23 Philip Dumont MD 516 [place] [address] Physician Ophthalmology 09/22/23 Meredith Carrera PA-C 909 [place] [address] Assigned Gastroenterology Provider 11/01/23 Neil Kent MD [address] [address] MD Dermatology 11/02/23 [place] [address] 914657 Neurological Surgery 12/26/23 Audrey Waite PA-C 500 [place] [address] Physician Sugar Laboratory Assistant Dermatology 02/28/24 Valery Veronica PA-C 031471 [address] [address] Physician Sugar Laboratory Assistant Dermatology 04/10/24 Herminia Hatch MD [facility]5 [place], [place] 588[address] Assigned Rheumatology Provider 07/02/24 documented as of this encounter
--- OUTSIDE RECORDS SUMMARY | 2024-08-28 18:29 | XMS_ITS | Encounter Summary ---
Author Organization [place] Address [address] [place] [address] Care Team Providers Care [employer] Sales Name Role Phone Diana Desir [facility] Unavailable Rain Galaviz PAUcheC Unavailable Tavia Wyatt MD Unavailable Erica Farrell SPECIFICATION CONSULTANT HEALTH CARE LEGAL ASSISTANT Unavailable Rich Barrett MD Unavailable [phone] Neil Kent MD Unavailable Kendrick Desirelle Stanislav [facility] Unavailable Livan Sharif MD Unavailable Catherine Cm MD Unavailable + Valery Veronica-C Unavailable Brea Quinn SPECIFICATION CONSULTANT HEALTH CARE LEGAL ASSISTANT Unavailable Alfonso Renteria MD Unavailable [phone] Esha GrimmC Primary Care Provider Radha Lomeli SPECIFICATION CONSULTANT HEALTH CARE LEGAL ASSISTANT Unavailable Jelena David OD Unavailable Esha Grimm PA-C Unavailable [phone] Valery VeronicaC Unavailable Rey Tay MD Unavailable Rocky Zepeda DO Unavailable Philip Dumont MD Unavailable [phone] Meredith CarreraC Unavailable [phone] Neil Kent MD Unavailable Juan Pablo Emmanuel MD Unavailable Audrey WaiteC Unavailable [phone] Valery VeronicaC Unavailable [phone] Herminia Hatch MD Unavailable Encounter Details Date Type Department Care Team (Late st Contact Info) Description 07/17/2024 12:30 PM HAND BOX COVERER E-Visit [facility] [id number] [place] [phone] Esha Grimm PA-C [id number] [place] [phone] Bacterial vaginosis (Primary Dx) Social History [...] week 05/07/2024 How often do you attend [facility] or congregational services? 1 to 4 times [...] Recorded PHQ-2 Score 1 02/07/2024 [facility] of Occupat ional [...] exercise at this level? 20 min 05/07/2024 [place] Depression Scale Answer Date Recorded [place]mora [...] CDT Legal Sex Female 4:13 AM HAND BOX COVERER Gender Identity Female 03/02/2021 5:45 PM CDT Sexual Orientation Straight 02/28/2020 12 :51 AM CDT documented as of this encounter Miscellaneous Notes * Telephone Encounter - Esha Grimm PA-C - 07/17/2024 12:44 PM CST Provider E-Visit time total (minutes): 12 BOX COVERER documented in this encounter Plan of Treatment Upcoming Encounters Date Type Department Care Team (Late st Contact Info) Description 10/23/2024 9:30 AM CDT Office Visit [facility] Neurology [facility] - [address], [address] [place] [address] [place] [address] [place] [address] Johnny Penn MD [address] [place] [address] documented as of this encounter Visit Diagnoses Diagnosis Bacterial vaginosis- Primary Vaginitis and vulvovaginitis, unspecified documented in this encounter Additional Health Concerns Assessment Noted Time PHQ-9 Depression Total Score: 3 02/07/20 24 9:33 AM CDT documented as of this encounter Care Teams Evp Global Multimedia Sales Relationship Specialty Start Date End Date Esha Grimm PA-C [address] [place] [address] PCP - General Family Medicine 05/04/23 Diana Desir, [facility] [address] [facility] [place], [place] 8[address] Pharmacist Pharmacist 04/17/21 Rain Galaviz PA-C [address] [place] [address] [address] [place] [address] Physician Rescue Boat Operator Dermatology 04/28/21 Tavia Wyatt MD [address] [place] [address] [address] [place] [address] Dermatology 07/14/21 Erica Farrell APRN HEALTH CARE LEGAL ASSISTANT [address] [place] [address] Nurse Practitioner Cardiovascular Disease 09/09/21 Rich Barrett MD [address] 690605 Physician Ophthalmology 01/21/22 Neil Kent MD 500 [place], [place] 7[address]195 Dermatology 02/24/22 Diana Desir, [facility] 3033 [place], [place] 301986 Assigned MTM Pharmacist 04/07/22 Livan Sharif MD [address], [facility] [address] [place] 24[address]15 Cardiovascular Disease 05/14/22 Catherine Cm MD [address] [place], [place] 985475 Cardiovascular Disease 07/21/22 Valery Veronica PAUcheC 909 [place], [place] 844175 Physician Rescue Boat Operator Dermatology 07/21/22 Brea Quinn APRN HEALTH CARE LEGAL ASSISTANT 500 [place], [place] 086035 Nurse Practitioner Dermatology 09/21/22 Alfonso Renteria MD [address] [facility] 200 [place], [place] 246886 Assigned Neuroscience Provider 04/02/23 Radha Lomeli APRN HEALTH CARE LEGAL ASSISTANT [address] [place] 591845 Assigned Heart and Vascular Provider 05/28/23 Jelena David OD [address] [facility] [place] [address] Ophthalmology 06/15/23 Esha Grimm PA-C [address] [place] [address] Assigned PCP 07/16/23 Valery Veronica PA-C [address] [place] [address] Physician Rescue Boat Operator Dermatology 09/19/23 Rey Tay MD [address] [place] [address] MD Gastroenterology 09/20/23 Rocky Zepeda DO [address] [place] [address] Physician Gastroenterology 09/20/23 Philip Dumont MD [address] [place] [address] Physician Ophthalmology 09/22/23 Meredith Carrera PA-C [address] [place] [address] Assigned Gastroenterology Provider 11/01/23 Neil Kent MD [address] 371760 Dermatology 11/02/23 [place] [address] [address] [facility] [place] [address] Neurological Surgery 12/26/23 Audrey Waite PA-C 500 [place] [address] Physician Rescue Boat Operator Dermatology 02/28/24 Valery Veronica PA-C [address] [place] [address] Physician Rescue Boat Operator Dermatology 04/10/24 Herminia Hatch MD [address] [place] [address] [id number] Assigned Rheumatology Provider 07/02/24 documented as of this encounter
--- OUTSIDE RECORDS SUMMARY | 2024-08-28 18:29 | XMS_ITS | Encounter Summary ---
Author Organization [place] Address [address] [place] [address] Care Team Providers Care Delivery And Installation Subcontractor Name Role Phone Diana Desir [facility] Unavailable Rain Galaviz PAUcheC Unavailable Tavia Wyatt MD Unavailable Erica Farrell TRANSITIONS MANAGER [employer] Unavailable Rich Barrett MD Unavailable [phone] Neil Kent MD Unavailable Kendrick Desirelle Stanislav [facility] Unavailable Livan Sharif MD Unavailable Catherine Cm MD Unavailable + Valery Veronica-C Unavailable rBea Quinn TRANSITIONS MANAGER [employer] Unavailable Alfonso Renteria MD Unavailable [phone] Esha GrimmC Primary Care Provider Radha Lomeli TRANSITIONS MANAGER [employer] Unavailable Jelena David OD Unavailable Esha Grimm PA-C Unavailable [phone] Valery VeronicaC Unavailable Rey Tay MD Unavailable Rocky Zepeda DO Unavailable Philip Dumont MD Unavailable [phone] Meredith CarreraC Unavailable [phone] Neil Kent MD Unavailable Juan Pablo Emmanuel MD Unavailable Audrey WaiteC Unavailable [phone] Valery VeronicaC Unavailable [phone] Herminia Hatch MD Unavailable Reason for Visit * Reason Onset Date Comments Patient Request for Note/Letter 07/16/2024 Medication Question 07/16/2024 Encounter Details Date Type Department Care Team (Late st Contact Info) Description 07/16/2024 MyC Medical Advice [facility] [id number] [place] [phone] Esha Grimm PA-C [id number] [place] [phone] Patient Request for Note/Letter; Medicatio... Social [...] Date Recorded PHQ-2 Score 1 02/07/2024 [facility] [...] exercise at this level? 20 min 05/07/2024 Carriere Depression Scale Answer Date Recorded Carriere Depression Score 5 01/14/2021 Last EPDS Self [...] PM CDT Legal Sex Female 4:13 AM TRIAL ATTORNEY Gender Identity Female 03/02/2021 5:45 PM CDT [...] States she tested positive for BV at [facility], but they keep writing the prescription wrong [...] done without a visit. Anni Grimm RN L ATTORNEY documented in this encounter Plan of Treatment Upcoming Encounters Date Type Department Care Team (Late st Contact Info) Description 10/23/2024 9:30 AM CDT Office Visit [facility] Neurology [facility] [address] [place] [address], [address] [place] [address] [place] [address] [place], [place] [address] Johnny Penn MD 8727 [place] [address] documented as of this encounter Visit Diagnoses Not on filedocumented in this encounter Additional Health Concerns Assessment Noted Time PHQ-9 Depression Total Score: 3 02/07/20 24 9:33 AM CDT documented as of this encounter Care Teams Delivery And Installation Subcontractor Relationship Specialty Start Date End Date Esha Grimm PA-C [address] [place] [phone] PCP - General Family Medicine 05/04/23 Diana Desir, [facility] [address] [place] [address] Pharmacist Pharmacist 04/17/21 Rain Galaviz PA-C [address] [place] [address] [address] [place], [place] [address] Physician Fish Hatchery Worker Dermatology 04/28/21 Tavia Wyatt MD [address] [place] [address] DR [address] [facility] [address] [place] [address] Dermatology 07/14/21 Erica Farrell APRN [employer] [address] [place] [address] Nurse Practitioner Cardiovascular Disease 09/09/21 Rich Barrett MD [address] [place] [address] 766665 Physician Ophthalmology 01/21/22 Neil Kent MD [address] [place] [address] 433525 Dermatology 02/24/22 [facility] [address] [place], [place] 305636 Assigned [place] Pharmacist 04/07/22 Livan Sharif MD [address] [place] [address] [place] [address] Cardiovascular Disease 05/14/22 Cathernie Cm MD [address] [place] [address] [place], [place] 8744[address] Cardiovascular Disease 07/21/22 Valery Veronica, PA-C [address] [place] [address] 742355 Physician Fish Hatchery Worker Dermatology 07/21/22 Brea Quinn APRN [employer] 500 [place], [place] 138975 Nurse Practitioner Dermatology 09/21/22 Alfonso Renteria MD 5775 [facility] [address] 200 [place], [place] 252216 Assigned Neuroscience Provider 04/02/23 Radha Lomeli APRN [employer] [address] [place] 1625200 [place], [place] 373215 Assigned Heart and Vascular Provider 05/28/23 Jelena David OD [address] [facility] [address] [place] [id number] Ophthalmology 06/15/23 Esha Grimm PA-C [address] [place] [phone] Assigned PCP 07/16/23 Valery Veronica PA-C 9 [place], [place] 431225 Physician Fish Hatchery Worker Dermatology 09/19/23 Rey Tay MD 909 [place], [place] 88[address]65 Gastroenterology 09/20/23 Rocky Zepeda DO 500 [place] [address] Physician Gastroenterology 09/20/23 Philip Dumont MD 516 [place] [address] Physician Ophthalmology 09/22/23 Meredith Carrera PA-C 909 [place] [address] Assigned Gastroenterology Provider 11/01/23 Neil Kent MD [address] [address] Dermatology 11/02/23 [place] [address] [place] [address] [address] Neurological Surgery 12/26/23 Audrey Waite PA-C [address] [place] [address] Physician Fish Hatchery Worker Dermatology 02/28/24 Valery Veronica PA-C 459916 [address], [place] [address] Physician Fish Hatchery Worker Dermatology 04/10/24 Herminia Hatch MD [facility]5 [place] [address] Assigned Rheumatology Provider 07/02/24 documented as of this encounter
--- OUTSIDE RECORDS SUMMARY | 2024-08-28 18:29 | XMS_ITS | Encounter Summary ---
Author Organization [facility] Address [address] [place] [address] Care Team Providers Care Knurling Machine Tender Name Role Phone Diana Desir [facility] Unavailable Rain Galaviz PA-C Unavailable Tavia Wyatt MD Unavailable Erica Farrell APRN ORNAMENTAL IRON ERECTOR Unavailable Rich Barrett MD Unavailable [phone] Neil Kent MD Unavailable Diana Desir [facility] Unavailable Livan Sharif MD Unavailable Catherine Cm MD Unavailable + Valery Veronica PA-C Unavailable Brea Quinn SUPREME COURT JUSTICE ORNAMENTAL IRON ERECTOR Unavailable Brea Quinn SUPREME COURT JUSTICE ORNAMENTAL IRON ERECTOR Unavailable Jose Francisco Johnson MD Unavailable Alfonso Renteria MD Unavailable [phone] Esha Grimm PA-C Primary Care Provider [phone] Radha Lomeli APRN ORNAMENTAL IRON ERECTOR Unavailable Jelena David OD Unavailable Pao Joseph RN Unavailable Unavailable Esha Grimm PA-C Unavailable [phone] Valery Veronica PA-C Unavailable Rey Tay MD Unavailable Rocky Zepeda DO Unavailable Philip Dumont MD Unavailable [phone] Meredith Carrera PA-C Unavailable [phone] Neil Kent MD Unavailable Juan Pablo Emmanuel MD Unavailable Audrey Waite PA-C Unavailable [phone] Valery Veronica PA-C Unavailable Herminia Hatch MD Unavailable Encounter Details Date Type Department Care Team (Late st Contact Info) Description 08/04/2023 [facility] [address] [address] [facility] [address] [place] [address] Social History Tobacco Use Types Packs/Day Years [...] often do you attend [facility] or yazidi services? 1 to 4 times [...] 06/20/2023 [facility] - [...] CDT Legal Sex Female 4:13 AM MANAGER MBA Gender Identity Female 03/02/2021 5:45 PM CDT Sexual Orientation Straight 02/28/2020 12 :51 AM CDT documented as of this encounter Plan of Treatment Upcoming Encounters Date Type Department Care Team (Late st Contact Info) Description 10/23/2024 9:30 AM CDT Office Visit [facility] [address], [address] [place] [address] [place] [address] [address] [place] [address] Johnny Penn MD [address] [place] [address] documented as of this encounter Visit Diagnoses Not on filedocumented in this encounter Additional Health Concerns Infection Onset Date Last Indicated Resolved Time Rule Out COVID-19 12/26/2023 12/26/2023 12/26/2023 9:50 AM CDT Rule Out COVID-19 04/09/2024 04/09/2024 04/10/2024 6:48 PM CDT Assessment Noted Time PHQ-9 Depression Total Score: 4 06/20/20 23 8:40 AM MANAGER MBA documented as of this encounter Care Teams Knurling Machine Tender Relationship Specialty Start Date End Date Esha Grimm PA-C [address] [place] [address] PCP - General Family Medicine 05/04/23 Diana Desir, [facility] [address] [place] [address] Pharmacist Pharmacist 04/17/21 Rain Galaviz PA-C [address] [place] [address] [address] [place] [address] Physician Pediatric Cns Dermatology 04/28/21 Tavia Wyatt MD [address] [place] [address] [address] [place] [facility] [place] [address] Dermatology 07/14/21 Erica Farrell APRN ORNAMENTAL IRON ERECTOR [address] [facility] [address] [place] [address] Nurse Practitioner Cardiovascular Disease 09/09/21 Rich Barrett MD [address] [place] [address] Physician Ophthalmology 01/21/22 Neil Kent MD [address] [place] [address] Dermatology 02/24/22 [facility] [address] [place] [address] Assigned [place] Pharmacist 04/07/22 Livan Sharif MD [address] [place] [id number] [place] [address] Cardiovascular Disease 05/14/22 Catherine Cm MD [address] [id number] Cardiovascular Disease 07/21/22 Valery Veronica, PAUcheC [address] [place] [address] Physician Pediatric Cns Dermatology 07/21/22 Brea Quinn APRN ORNAMENTAL IRON ERECTOR [address] [place] [address] Nurse Practitioner Dermatology 09/21/22 Brea Quinn APRN ORNAMENTAL IRON ERECTOR [address] [place] [address] Assigned Surgical Provider 10/09/22 05/01/24 [place] [address] [address] Assigned Musculoskeletal Provider 10/09/22 05/01/24 Alfonso Renteria MD [address] [facility] [address] [place] [address] Assigned Neuroscience Provider 04/02/23 Radha Lomeli APRN ORNAMENTAL IRON ERECTOR [address] [place] [address] Assigned Heart and Vascular Provider 05/28/23 Jelena David OD [address] [facility] [place] [address] Ophthalmology 06/15/23 Pao Joseph, VJ Personal Advocate & Liaison (PAL) Nurse 08/01/23 11/07/23 Esha Grimm PA-C [address] [place] [phone] Assigned PCP 07/16/23 Valery Veronica PA-C [address] [place] [address] Physician Pediatric Cns Dermatology 09/19/23 Rey Tay MD [address] [place] [id number] Gastroenterology 09/20/23 Rocky Zepeda DO [address] [place] [address] 733785 Physician Gastroenterology 09/20/23 Philip Dumont MD [address] [place] [address] [id number] Physician Ophthalmology 09/22/23 Meredith Carrera PA-C [address] [place] [address] Assigned Gastroenterology Provider 11/01/23 Neil Kent MD [address] [address] Dermatology 11/02/23 [place] [address] [address] Neurological Surgery 12/26/23 Audrey Waite PA-C [address] [place] [address] Physician Pediatric Cns Dermatology 02/28/24 Valery Veronica PA-C 7[address]18 [address] [address] Physician Pediatric Cns Dermatology 04/10/24 Herminia Hatch MD [facility] [place], [place] [id number] Assigned Rheumatology Provider 07/02/24 documented as of this encounter
--- OUTSIDE RECORDS SUMMARY | 2024-08-28 18:29 | XMS_ITS | Encounter Summary ---
Author Organization [place] Address [address] [place] [address] Care Team Providers Care Recreation Activities Coordinator Name Role Phone Diana Desir [facility] Unavailable Rain Galaviz PAUcheC Unavailable Tavia Wyatt MD Unavailable Erica Farrell BATTERY TECHNICIAN IT SECURITY ENGINEER Unavailable Rich Barrett MD Unavailable [phone] Neil Kent MD Unavailable Kendrick Desirelle Stanislav [facility] Unavailable Livan Sharif MD Unavailable Catherine Cm MD Unavailable + Valery Veronica-C Unavailable [phone] Brea Quinn BATTERY TECHNICIAN IT SECURITY ENGINEER Unavailable Alfonso Renteria MD Unavailable [phone] Esha GrimmC Primary Care Provider Radha Lomeli BATTERY TECHNICIAN IT SECURITY ENGINEER Unavailable Jelena David OD Unavailable [place], Esha M PA-C Unavailable [phone] Valery Veronica PA-C Unavailable [phone] Rey Tay MD Unavailable Rocky Zepeda DO Unavailable Philip Dumont MD Unavailable [phone] Meredith Carrera PA-C Unavailable [phone] Neil Kent MD Unavailable Juan Pablo Emmanuel MD Unavailable Audrey Waite PA-C Unavailable [phone] Valery Veronica PA-C Unavailable [phone] Herminia Hatch MD Unavailable Reason for Visit * Reason Comments Palpitations Encounter Details Date Type Department Care Team (Late st Contact Info) Description 08/27/2024 9:06 PM MVA OPERATOR - 08/27/2024 10:09 PM MVA OPERATOR Emergency [facility] Emergency Dept [address] [place] [address] Fady Vega MD [facility] [address] [place] [address] Palpitations Discharge Disposition: Home or Self Care Social [...] do you attend [facility] or congregation services? 1 to 4 times [...] Answer Date Recorded PHQ-2 Score 1 02/07/2024 [facility] - Occupational Stress Questionnaire [...] exercise at this level? 20 min 05/07/2024 [place] Depression Scale Answer Date Recorded [place] Depression Score 5 01/14/2021 Last EPDS Self [...] PM CDT Legal Sex Female 4:13 AM MVA OPERATOR Gender Identity Female 03/02/2021 5:45 PM CDT Sexual Orientation Straight 02/28/2020 12 :51 AM CDT documented as of this encounter Last Filed Vital Signs Vital Sign Reading Time Taken Comments Blood Pressure 112/61 08/27/2024 10:08 PM MVA OPERATOR Pulse 82 08/27/2024 10:08 PM MVA OPERATOR Temperature 36.7 C (98.1 F) 08/27/2024 8:38 PM MVA OPERATOR Respiratory Rate 18 08/27/2024 8:38 PM MVA OPERATOR Oxygen Saturation 98% 08/27/2024 10: 08 PM MVA OPERATOR Inhaled Oxygen Concentration - - Weight 93.4 kg (205 lb 14.6 oz) 08/27/2024 8:38 PM MVA OPERATOR Height 167.6 cm (5' 6) 08/27/2024 8:38 PM MVA OPERATOR Body Mass Index 33.23 08/27/2024 8:38 PM MVA OPERATOR documented in this encounter Discharge Instructions * Attachments The following attachments cannot be sent through Care Everywhere. * Palpitations ([place] Island[place]) documented in this encounter Medications at Time [...] mg) by mouth daily. 45 tablet 3 05/18/2024 Multiple Vitamin (MULTIVITAMIN ADULT PO) omeprazole (PRILOSEC) [...] to twice daily as needed. 60 g 06/21/2024 tretinoin (RETIN-A) 0.05 % external creamIndications: Acne, unspecified acne type Apply topically at bedtime 45 g 09/01/2023 triamcinolone (KENALOG) 0.1 % external ointmentIndicatio ns:Psoriasis Apply topically 2 times daily. To psoriasis on body or arms/legs until healed then stop 80 g 06/21/2024 documented as of this encounter ED Notes * Fady Vega MD - 08/27/2024 9:21 PM CST Emergency Department Note History of Present Illness Chief Complaint Palpitations HPI Kim Johnson is a 24 year old female with a history as noted below who presents to the emergency department for palpitations. The patient states that a few hours prior to arrival, she was speaking with her brother when she began experiencing an onset of palpitations and chest pressure. She adds that these palpitations have improved since emergency department arrival. She reports that she has a hx of SVT which she underwent an ablation and was started on metoprolol, which she has been taking without any missed doses. She adds that her smart watch did not show that she was in SVT tonight. Shereports that a Zio patch is currently being shipped to her to monitor her ongoing palpitations. No flu symptoms. No nausea, vomiting, diarrhea, or abdominal pain. She is currently on antibiotics for BV. She is a former smoker. Independent Historian None Review of External Notes Reviewed patient's ED care plan. 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 Ventricular tachycardia Medications levonorgestrel (MIRENA) 52 MG (20 mcg/day) IUD LORazepam (ATIVAN) 0.5 MG tablet metoprolol succinate ER (TOPROL XL) 25 MG 24 hr tablet omeprazole (PRILOSEC) [address] capsule PARoxetine (PAXIL) 40 MG tablet Surgical History EP ablation SVT EGD x 2 Kidney procedure Physical Exam Patient Vitals for the past 24 hrs: BP Temp Temp src Pulse Resp SpO2 Height Weight 08/27/24 2208 112/61 -- -- 82 -- 98 % -- -- 08/27/24 2038 120/72 98.1 ??F (36.7 ??C) Oral 85 18 99 % 1.676 m (5' 6) 93.4 kg (205 lb 14.6 oz) Physical Exam Constitutional: Vital signs reviewed as above General: Alert HEENT: Moist mucous membranes Eyes: Conjunctiva normal. Neck: Normal range of motion Cardiovascular: Regular rate, Regular rhythm and normal heart sounds. No MRG Pulmonary/Chest: Effort normal and breath sounds normal. No respiratory distress. Patient has no wheezes. Patient has no rales. Abdominal: Soft. Positive bowel sounds. No MRG. Musculoskeletal/Extremities: Full ROM. Endo: No pitting edema Neurological: Alert, no focal deficits. Skin: Skin is warm and dry. Psychiatric: [facility] Lab Results Labs Ordered and Resulted from Time of ED Arrival to Time of ED Departure CBC WITH PLATELETS AND DIFFERENTIAL - Abnormal Result Value WBC Count 8.7 RBC Count 4.59 Hemoglobin 11.7 Hematocrit 36.7 MCV 80 MCH 25.5 (*) MCHC 31.9 RDW 12.6 Platelet Count 252 % Neutrophils 64 % Lymphocytes 26 % Monocytes 6 % Eosinophils 4 % Basophils 1 % Immature Granulocytes 0 NRBCs per 100 WBC 0 Absolute Neutrophils 5.5 Absolute Lymphocytes 2.3 Absolute Monocytes 0.5 Absolute Eosinophils 0.3 Absolute Basophils 0.1 Absolute Immature Granulocytes 0.0 Absolute NRBCs 0.0 BASIC METABOLIC PANEL - Normal Sodium 137 Potassium 3.9 Chloride 103 Carbon Dioxide (CO2) 23 Anion Gap 11 Urea Nitrogen 12.9 Creatinine 0.68 GFR Estimate >90 Calcium 9.1 Glucose 86 TROPONIN T, HIGH SENSITIVITY - Normal Troponin T, High Sensitivity <6 Imaging None EKG ECG results from 08/27/24 EKG 12 lead Value Systolic Blood Pressure Diastolic Blood Pressure Ventricular Rate 80 Atrial Rate 80 NJ Interval 152 QRS Duration 94 QT 370 QTc 426 P [place] 52 R AXIS 68 T [place] 53 Interpretation ECG Sinus rhythm Normal ECG When compared with ECG of 07-Apr-2024 03:06, No significant change was found *Note: Due to a large number of results and/or encounters for the requested time period, some results have not been displayed. A complete set of results can be found in Results Review. Independent Interpretation EKG shows sinus rhythm, rate of 80, no ST or T wave changes, QTc of 426. ED Course Medications Administered Medications - No data to display Discussion of Management None ED Course ED Course as of 08/28/24 0025 TueAug 27, [id number] I obtained history and examined the patient as noted above. 2202 I rechecked the patient. I discussed findings and discharge with the patient. All questions answered. Additional Documentation None Medical Decision Making / Diagnosis [facility] Diagnoses: None MIPS None [facility] Kim Johnson is a 24 year old female with a history of SVT and V. tach, status post ablation, whopresents with increasing episodes of heart racing and palpitations. She is scheduled to get a Zio patch likely tomorrow. She has had those before. Given how frequently she was having the symptoms today she was concerned that something more serious was going on. Fortunately her EKG here shows no signs of ischemia or tachycardia. She did have some chest pressure throughout the day but her troponin is undetectable. Her CBC and electrolyte panels are such unremarkable. She had a thyroid study done less than a year ago which was normal so I doubt that needs repeating. On reevaluation she continues to do well. She is comfortable going home and will apply the Zio patch as soon as it is arrives. Disposition The patient was discharged. Diagnosis ICD-10-CM 1. Palpitations R00.2 Scribe Disclosure: I, Luis Angel Li, am serving as a scribe at 9:22 PM on 08/27/2024 to document services personally performed by Fady Vega MD based on my observations and the provider's statements to me. Fady Vega MD 08/28/24 0025 OPERATOR * Alisia Giles RN - 08/27/2024 8:37 PM CST Patient has a heart hx and states today while sitting she had sudden onset of palpitations and racing heart. Patient states since this incident her chest has felt off and she has had discomfort. Triage Assessment (Adult) Row Name 08/27/242036 Triage Assessment Airway WDL WDL Respiratory WDL Respiratory WDL WDL Skin Circulation/Temperature WDL Skin Circulation/Temperature WDL WDL Cardiac WDL Cardiac WDL WDL Peripheral/Neurovascular WDL Peripheral Neurovascular WDL WDL Cognitive/Neuro/Behavioral WDL Cognitive/Neuro/Behavioral WDL WDL OPERATOR documented in this encounter Plan of Treatment Upcoming Encounters Date Type Department Care Team (Late st Contact Info) Description 10/23/2024 9:30 AM CDT Office Visit [facility] Neurology [facility] - [address], [address] [place] [address] [place] [address] [place] [address] Johnny Penn MD [address] [place], [place] [address] documented as of this encounter Procedures Procedure Name Priority Date/Time Associated Diagnosis Comments EXTRA TUBE STAT 08/27/2024 9:19 PM MVA OPERATOR EXTRA RED TOP TUBE STAT 08/27/2024 9: 19 PM MVA OPERATOR EXTRA BLUE TOP TUBE STAT 08/27/2024 9 :19 PM MVA OPERATOR CBC WITH PLATELETS AND DIFFERENTIAL STAT 08/27/2024 9:19 PM MVA OPERATOR TROPONIN T, HIGH SENSITIVITY STAT 08/27/2024 9:19 PM MVA OPERATOR CBC WITH PLATELETS & DIFFERENTIAL STAT 08/27/2024 9:19 PM MVA OPERATOR BASIC METABOLIC PANEL STAT 08/27/2024 9:19 PM MVA OPERATOR EKG 12-LEAD, TRACING ONLY STAT 08/27/2024 8:48 PM MVA OPERATOR documented in this encounter Results * (ABNORMAL) CBC with platelets and differential (08/27/2024 9:19 PM MVA OPERATOR) WBC Count 8.7 4.0 - 11.0 10e3/uL 08/27/2024 9:26 PM MVA OPERATOR [facility] RBC Count 4.59 3.80 - 5.20 10e6/uL 08/27/2024 9:26 PM MVA OPERATOR [facility] Hemoglobin 11.7 11.7 - 15.7 g/dL 08/27/2024 9:26 PM MVA OPERATOR [facility] Hematocrit 36.7 35.0 - 47.0 % 08/27/2024 9:26 PM MVA OPERATOR [facility] MCV 80 78 - 100 fL 08/27/2024 9:26 PM MVA OPERATOR [facility] MCH 25.5(L) 26.5 - 33.0 pg 08/27/2024 9:26 PM MVA OPERATOR [facility] MCHC 31.9 31.5 - 36.5 g/dL 08/27/2024 9:26 PM MVA OPERATOR [facility] RDW 12.6 10.0 - 15.0 % 08/27/2024 9:26 PM MVA OPERATOR [facility] Platelet Count 252 150 - 450 10e3/uL 08/27/2024 9:26 PM MVA OPERATOR [facility] % Neutrophils 64 % 08/27/2024 9:26 PM MVA OPERATOR [facility] % Lymphocytes 26 % 08/27/2024 9:26 PM MVA OPERATOR [facility] % Monocytes 6 % 08/27/2024 9:26 PM MVA OPERATOR [facility] % Eosinophils 4 % 08/27/2024 9:26 PM MVA OPERATOR [facility] % Basophils 1 % 08/27/2024 9:26 PM MVA OPERATOR [facility] % Immature Granulocytes 0 % 08/27/2024 9:26 PM MVA OPERATOR [facility] NRBCs per 100 WBC 0 <1 /100 025 9:26 PM MVA OPERATOR LABORATORY Absolute Neutrophils 5.5 1.6 - 8.3 10e3/uL 08/27/2024 9:26 PM MVA OPERATOR [facility] Absolute Lymphocytes 2.3 0.8 - 5.3 10e3/uL 08/27/2024 9:26 PM MVA OPERATOR [facility] Absolute Monocytes 0.5 0.0 - 1.3 10e3/uL 08/27/2024 9:26 PM MVA OPERATOR [facility] Absolute Eosinophils 0.3 0.0 - 0.7 10e3/uL 08/27/2024 9:26 PM MVA OPERATOR LABORATORY Absolute Basophils 0.1 0.0 - 0.2 10e3/uL 08/27/2024 9:26 PM MVA OPERATOR LABORATORY Absolute Immature Granulocytes 0.0 <=0.4 10e3/uL 08/27/2024 9:26 PM MVA OPERATOR [facility] Absolute NRBCs 0.0 10e3/uL 08/27/2024 9:26 PM MVA OPERATOR [facility] Blood STRUCTURE OF RIGHT UPPER LIMB / Unknown Venipuncture / Unknown 08/27/2024 9:19 PM MVA OPERATOR 08/27/2024 9:23 PM MVA OPERATOR us Fady Vega MD LAB - BLOOD ORDERABLES Fi nal Result [facility] Acute Care Lab [address] Lab (1st floor, no room number) [place] [address] * Extra Red Top Tube (08/27/2024 9:19 PM MVA OPERATOR) Hold Specimen [facility] 08/27/2024 10:31 PM MVA OPERATOR LABORATORY Blood STRUCTURE OF RIGHT UPPER LIMB / Unknown Venipuncture / Unknown 08/27/2024 9:19 PM MVA OPERATOR 08/27/2024 9:23 PM MVA OPERATOR Fady Vega MD LAB - BLOOD ORDERABLES Fi nal Result [facility] Care Lab [address] Lab (1st floor, no room number) [place] [phone] * Extra Blue Top Tube (08/27/2024 9:19 PM MVA OPERATOR) Hold Specimen [facility] 08/27/2024 10:31 PM MVA OPERATOR LABORATORY Blood STRUCTURE OF RIGHT UPPER LIMB / Unknown Venipuncture / Unknown 08/27/2024 9:19 PM MVA OPERATOR 08/27/2024 9:23 PM MVA OPERATOR Fady Vega MD LAB - BLOOD ORDERABLES Fi nal Result [facility] Acute Care Lab [address] Lab (1st floor, no room number) [place] [phone] [place] [address] * Troponin T, High Sensitivity (08/27/2024 9:19 PM MVA OPERATOR) Troponin T, High Sensitivity <6 <=14 ng/L 08/27/2024 9:54 PM MVA OPERATOR LABORATORY Comment: Either a High Sensitivity Troponin [...] Unknown Venipuncture / Unknown 08/27/2024 9:19 PM MVA OPERATOR 08/27/2024 9:23 PM MVA OPERATOR us Fady Vega MD LAB - BLOOD ORDERABLES Fi nal Result LABORATORY [facility] Acute Care Lab [address] [facility] Lab (1st floor, no room number) [place] [address], [facility] * Basic metabolic panel (BMP) (08/27/2024 9:19 PM MVA OPERATOR) Sodium 137 135 - 145 mmol/L 08/27/2024 9:54 PM [facility] Potassium 3.9 3.4 - 5.3 mmol/L 08/27/2024 9:54 PM [facility] Chloride 103 98 - 107 mmol/L 08/27/2024 9:54 PM [facility] Carbon Dioxide (CO2) 23 22 - 29 mmol/L 08/27/2024 9:54 PM [facility] Anion Gap 11 7 - 15 mmol/L 08/27/2024 9:54 PM [facility] Urea Nitrogen 12.9 6.0 - 20.0 mg/dL 08/27/2024 9:54 PM [facility] Creatinine 0.68 0.51 - 0.95 mg/dL 08/27/2024 9:54 PM [facility] GFR Estimate >90 >60 mL/min/1.7 3m2 08/27/2024 9:54 PM [facility] Comment:eGFR calculated usin 2020 CKD-EPI equation. Calcium 9.1 8.8 - 10.4 mg/dL 08/27/2024 9:54 PM [facility] Glucose 86 70 - 99 mg/dL 08/27/2024 9:54 PM [facility] Blood STRUCTURE OF RIGHT UPPER LIMB / Unknown Venipuncture / Unknown 08/27/2024 9:19 PM MVA OPERATOR 08/27/2024 9:23 PM MVA OPERATOR Fady Vega MD LAB - BLOOD ORDERABLES Fi nal Result [facility] Acute Care Lab [address] Lab (1st floor, no room number) [place] [address] * EKG 12 lead (08/27/2024 8:48 PM MVA OPERATOR) Systolic Blood Pressure mmHg RADIOLOGY RESULTS Diastolic Blood Pressure mmHg RADIOLOGY RESULTS Ventricular Rate 80 BPM RAD IOLOGY RESULTS Atrial Rate 80 BPM RADIOLOG Y RESULTS NJ Interval 152 ms RADIOLOG Y RESULTS QRS Duration 94 ms RADIOLO GY RESULTS QT 370 ms RADIOLOGY RESULTS QTc 426 ms RADIOLOGY RESULTS P Center [place] 52 degrees RADIOLOGY RESULTS R AXIS 68 degrees RADIOLOGY RESULTS T [place] 53 degrees RADIOLOGY RESULTS Interpretation ECG Sinus rhythm Normal ECG When compared with ECG of 07-Apr-2024 03:06, No significant change was found Confirmed by - EMERGENCY ROOM, PHYSICIAN ([id number]), school photograph editor RENITA MANZO ([id number]) on 08/28/2024 7:15:42 AM RADIOLOGY RESULTS 08/27/2024 8:48 PM MVA OPERATOR 08/28/2024 7:15 AM MVA OPERATOR Fady Vega MD ECG ORDERABLES Edited Re sult - Final RADIOLOGY RESULTS documented in this encounter Visit Diagnoses Diagnosis Palpitations documented in this encounter Additional Health Concerns Assessment Noted Time PHQ-9 Depression Total Score: 3 02/07/20 24 9:33 AM CDT documented as of this encounter Care Teams Recreation Activities Coordinator Relationship Specialty Start Date End Date Esha Grimm PA-C [address] [place] [phone] PCP - General Family Medicine 05/04/23 Diana Desir, [facility] [address] [place] [address] Pharmacist Pharmacist 04/17/21 Rain Galaviz PA-C [address] [place] [address] [address] [place] [address] Physician Project Manager/Team Coach Dermatology 04/28/21 Tavia Wyatt MD [address] [place] [address] [address] [place] [facility] [place] [address] Dermatology 07/14/21 Erica Farrell APRN IT SECURITY ENGINEER [address] [place], [place] [address] Nurse Practitioner Cardiovascular Disease 09/09/21 Rich Barrett MD [address] [place] [address], [facility] [address] [place], [place] [address] Physician Ophthalmology 01/21/22 Neil Kent MD [address] [place] [address] Dermatology 02/24/22 [facility] [address] [place] [address] Assigned MTM Pharmacist 04/07/22 Livan Sharif MD [address], [facility] [address] [place] [address] Cardiovascular Disease 05/14/22 Catherine Cm MD [address] [facility] [address] [place] [address] Cardiovascular Disease 07/21/22 Valery Veronica PA-C [address] [place] [address] Physician Project Manager/Team Coach Dermatology 07/21/22 Brea Quinn APRN IT SECURITY ENGINEER [address] [place] [address]85 Nurse Practitioner Dermatology 09/21/22 Alfonso Renteria MD [address] [facility] [address] [place], [place] [address] Assigned Neuroscience Provider 04/02/23 Radha Lomeli APRN IT SECURITY ENGINEER [address] [facility] [address] [place] [address] Assigned Heart and Vascular Provider 05/28/23 Jelena David OD [address] [facility] [address] Ophthalmology 06/15/23 Esha Grimm PA-C [address] [place] [address] Assigned PCP 07/16/23 Valery Veronica PA-C [address] [place] [id number] Physician Project Manager/Team Coach Dermatology 09/19/23 Rey Tay MD [address] [place] [address] MD Gastroenterology 09/20/23 Rocky Zepeda DO [address] [employer], [place] [address] Physician Gastroenterology 09/20/23 Philip Dumont MD [address] [place] [address] Physician Ophthalmology 09/22/23 Meredith Carrera PA-C [address] [place], [place] [address] Assigned Gastroenterology Provider 11/01/23 Neil Kent MD [address] [address] MD Dermatology 11/02/23 [place] [address] [address] Neurological Surgery 12/26/23 Audrey Waite PA-C [address] [place] [address] Physician Project Manager/Team Coach Dermatology 02/28/24 Valery Veronica PA-C [id number] [place] [address] Physician Project Manager/Team Coach Dermatology 04/10/24 Herminia Hatch MD [facility] [place] [address] Assigned Rheumatology Provider 07/02/24 documented as of this encounter
--- OUTSIDE RECORDS SUMMARY | 2024-08-28 18:29 | XMS_ITS | Encounter Summary ---
Author Organization [facility] Address [address] [place] [address] Care Team Providers Care Fermenter Name Role Phone Diana Desir [facility] Unavailable Rain Galaviz PA-C Unavailable Tavia Wyatt MD Unavailable Erica Farrell APRN MOLDING PLASTERER Unavailable Rich Barrett MD Unavailable [phone] Neil Kent MD Unavailable Diana Desir [facility] Unavailable [phone] Livan Sharif MD Unavailable Catherine Cm MD Unavailable + Valery Veronica PA-C Unavailable Brea Quinn BLACK TOP RAKER MOLDING PLASTERER Unavailable Brea Quinn BLACK TOP RAKER MOLDING PLASTERER Unavailable [phone] Jose Francisco Johnson MD Unavailable Alfonso Renteria MD Unavailable [phone] Esha Grimm PA-C Primary Care Provider [phone] Radha Lomeli APRN MOLDING PLASTERER Unavailable Jelena David OD Unavailable [phone] Pao Joseph RN Unavailable Unavailable Esha Grimm PA-C Unavailable [phone] Valery Veronica PA-C Unavailable [phone] Rey Tay MD Unavailable Rocky Zepeda DO Unavailable Philip Dumont MD Unavailable [phone] Meredith Carrera PA-C Unavailable [phone] Neil Kent MD Unavailable Juan Pablo Emmanuel MD Unavailable [phone] Audrey Waite PA-C Unavailable [phone] Valery Veronica PA-C Unavailable [phone] Herminia Hatch MD Unavailable Encounter Details Date Type Department Care Team (Late st Contact Info) Description 08/31/2023 My[facility] Medical Advice [facility] [address] [facility] [address] [place] [address] Amalia Reyes RN Social History [...] exercise at this level? 30 min 03/10/2023 [place] Depression Scale Answer Date Recorded [place] Depression Score 5 01/14/2021 Last EPDS [...] PM CDT Legal Sex Female 4:13 AM TEST BORER HELPER Gender Identity Female 03/02/2021 5:45 PM CDT Sexual Orientation Straight 02/28/2020 12 :51 AM CDT documented as of this encounter Plan of Treatment Upcoming Encounters Date Type Department Care Team (Late st Contact Info) Description 10/23/2024 9:30 AM CDT Office Visit [facility] Neurology [address], [address] [place] [address] [place] [address] [address] [id number] Johnny Penn MD [address] [place] [id number] documented as of this encounter Visit Diagnoses Not on filedocumented in this encounter Additional Health Concerns Infection Onset Date Last Indicated Resolved Time Rule Out COVID-19 12/26/2023 12/26/2023 12/26/2023 9:50 AM CDT Rule Out COVID-19 04/09/2024 04/09/2024 04/10/2024 6:48 PM CDT Assessment Noted Time PHQ-9 Depression Total Score: 4 06/20/20 23 8:40 AM TEST BORER HELPER documented as of this encounter Care Teams Fermenter Relationship Specialty Start Date End Date Esha Grimm PA-C [address] [place] [phone] PCP - General Family Medicine 05/04/23 Diana Desir, [facility] [address] [place], [place] 470[address] Pharmacist Pharmacist 04/17/21 Rain Galaviz PA-C [address] [place] [address] [address] [place] [address] Physician Dominatrix Dermatology 04/28/21 Tavia Wyatt MD [address] [place] [address] [address] [place], [place] [phone] Dermatology 07/14/21 Erica Farrell APRN MOLDING PLASTERER [address] [facility] [address] [place], [place] [address] Nurse Practitioner Cardiovascular Disease 09/09/21 Rich Barrett MD 516 [facility] 9[address] [place], [place] 5114[address] Physician Ophthalmology 01/21/22 Neil Kent MD 500 [place], [place] 237135 Dermatology 02/24/22 Diana Desir, [facility] 3033 [place] [address] Assigned MTM Pharmacist 04/07/22 Livan Sharif MD [address], [facility] [address] [place], [place] 4610[address] Cardiovascular Disease 05/14/22 Catherine Cm MD [address] [facility] [address] [place], [place] 805[address] Cardiovascular Disease 07/21/22 Valery Veronica, PAUcheC 9 [place], [place] 129805 Physician Dominatrix Dermatology 07/21/22 Brea Quinn APRN MOLDING PLASTERER 500 [place], [place] 985635 Nurse Practitioner Dermatology 09/21/22 Brea Quinn APRN MOLDING PLASTERER [address] [place] [address] Assigned Surgical Provider 10/09/22 05/01/24 [place] [address] [address] [facility] 300 [place] [address] Assigned Musculoskeletal Provider 10/09/22 05/01/24 Alfonso Renteria MD [address] [facility] 200 [place], [place] 711746 Assigned Neuroscience Provider 04/02/23 Radha Lomeli APRN MOLDING PLASTERER 6[address] [facility] [address] [place] [address] Assigned Heart and Vascular Provider 05/28/23 Jelena David OD [address] [facility] [place] [address] MD Ophthalmology 06/15/23 Pao Joseph, VJ Personal Advocate & Liaison (PAL) Nurse 08/01/23 11/07/23 Esha Grimm PA-C [address] [place] [phone] Assigned PCP 07/16/23 Valery Veronica PA-C [address] [place] [address] 921165 Physician Dominatrix Dermatology 09/19/23 Rey Tay MD [address] [place] [address] 507355 Gastroenterology 09/20/23 Rocky Zepeda DO [address] [place] [address] 853245 Physician Gastroenterology 09/20/23 Philip Dumont MD [address] [place] [address] 429495 Physician Ophthalmology 09/22/23 Meredith Carrera PA-C [address] [place] [address] 911545 Assigned Gastroenterology Provider 11/01/23 Neil Kent MD [address] [address] Dermatology 11/02/23 [place] [address] [address] 900877 Neurological Surgery 12/26/23 Audrey Waite PA-C 500 [place] [address] Physician Dominatrix Dermatology 02/28/24 Valery Veronica PAUcheC 425723 [place], [place] [address] Physician Dominatrix Dermatology 04/10/24 Herminia Hatch MD [address]75 [place] [address] Assigned Rheumatology Provider 07/02/24 documented as of this encounter
--- OUTSIDE RECORDS SUMMARY | 2024-08-28 18:29 | XMS_ITS | Encounter Summary ---
Author Organization [facility] Address [address] [place] [address] Care Team Providers Care Aircraft Power Plant Assembler Name Role Phone Diana Desir [facility] Unavailable Rain Galaviz PAUcheC Unavailable Tavia Wyatt MD Unavailable Erica Farrell ACCOUNTS PAYABLE CLERK SPEECH CORRECTION ASSISTANT Unavailable Rich Barrett MD Unavailable [phone] Neil Kent MD Unavailable Kendrick Desirelle Stanislav [facility] Unavailable Livan Sharif MD Unavailable Catherine Cm MD Unavailable + Valery Veronica-C Unavailable [phone] Brea Quinn ACCOUNTS PAYABLE CLERK SPEECH CORRECTION ASSISTANT Unavailable Alfonso Renteria MD Unavailable [phone] Esha GrimmC Primary Care Provider Radha Lomeli ACCOUNTS PAYABLE CLERK SPEECH CORRECTION ASSISTANT Unavailable Jelena David OD Unavailable [place], Esha M PA-C Unavailable [phone] Valery Veronica PA-C Unavailable [phone] Rey Tay MD Unavailable Rocky Zepeda DO Unavailable Philip Dumont MD Unavailable [phone] Meredith Carrera PA-C Unavailable [phone] Neil Kent MD Unavailable Juan Pablo Emmanuel MD Unavailable Audrey Waite PA-C Unavailable [phone] Valery Veronica PA-C Unavailable Herminia Hatch MD Unavailable Reason for Visit * Reason Comments Urgent Care After working out, c hest tightness, pressure, lasted for about 45 minutes, felt nausea, no use of pre workout, hx of SVT Encounter Details Date Type Department Care Team (Late st Contact Info) Description 07/27/2024 5:10 PM GROUNDMAN/LINEMAN Office Visit [facility] [place] [address] [place] [address] Amaris Pascal PA-C [address] [place] [address] Chest tightness (Primary Dx) Social History Tobacco Use Types [...] PHQ-2 Score 1 02/07/2024 [facility] - Occupational Stress Questionnaire [...] exercise at this level? 20 min 05/07/2024 [place] Depression Scale Answer Date Recorded [place] Depression Score 5 01/14/2021 Last EPDS Self [...] in an overnight fpc, or couch-surfing.) Yes 05/07/2024 Are you worried [...] PM CDT Legal Sex Female 4:13 AM GROUNDMAN/LINEMAN Gender Identity Female 03/02/2021 5:45 PM CDT Sexual Orientation Straight 02/28/2020 12 :51 AM CDT documented as of this encounter Last Filed Vital Signs Vital Sign Reading Time Taken Comments Blood Pressure 106/67 07/27/2024 5:13 PM GROUNDMAN/LINEMAN Pulse 78 07/27/2024 5:13 PM GROUNDMAN/LINEMAN Temperature 36.8 C (98.3 F) 07/27/2024 5:13 PM GROUNDMAN/LINEMAN Respiratory Rate - - Oxygen Saturation 96% 07/27/2024 5:13 PM GROUNDMAN/LINEMAN Inhaled Oxygen Concentration - - Weight 90.7 kg (200 lb) 07/27/2024 5:13 PM GROUNDMAN/LINEMAN Height - - Body Mass Index 32.28 05/31/2024 3:37 PM GROUNDMAN/LINEMAN documented in this encounter Patient Instructions * Patient Instructions* Amaris Pascal PA-C - 07/27/2024 5:10 PM GROUNDMAN/LINEMAN Your exam is reassuring today. Vitals are reassuring. Please keep monitoring symptoms. Please follow-up if any worsening symptoms. NDMAN/LINEMAN documented in this encounter Progress Notes * Amaris Pascal PA-C - 07/27/2024 5:10 PM CST Assessment & Plan Chest tightness Acute problem after her workout this morning. Symptoms are moderately improved at this time. Patient denies chest pain. Patient denies SOB. Vitals are stable. Exam is reassuring. Lungs are clear. Shehas been exposed to cold symptoms which could be a contributory factor. Close monitoring of symptoms. Follow-up if any worsening symptoms. Patient agrees with the plan. Return in about 5 days (around 08/01/2024) for Symptoms failing to improve. Amaris Pascal PA-C [facility] Dario Alvarez is a 24 year old female who presents to clinic today for the following health issues: Chief Complaint Patient presents with Urgent Care After working out, chest tightness, pressure, lasted for about 45 minutes, felt nausea, no use of pre workout, hx of SVT HPI Patient with medical history significant for paroxysmal SVT, s/p ablation, anxiety, depression, seizure presenting to urgent care today with a complaint of chest tightness after working out today. Chest tightness lasted for about 45 minutes. She notes symptoms are moderately improved at this time. No vomiting or diarrhea. No cough. No chest pain. No SOB. No recent fevers or chills. No new medications or supplements. No visual disturbances. No FLORES. No paresthesias. Exposure to daughter with current cold symptoms. Review of Systems Constitutional, HEENT, cardiovascular, pulmonary, GI, , musculoskeletal, neuro, skin, endocrine and psych systems are negative, except as otherwise noted. Objective BP 106/67 Pulse 78 Temp 98.3 ??F (36.8 ??C) (Oral) Wt 90.7 kg (200 lb) SpO2 96% BMI 32.28kg/m?? Physical Exam GENERAL: alert and no distress HENT: ear canals and TM's normal, mouth without ulcers or lesions, throat is moist and pink RESP: lungs clear to auscultation - no rales, rhonchi or wheezes CV: regular rate and rhythm, normal S1 S2, no murmur MS: no gross musculoskeletal defects noted, no edema SKIN: no suspicious lesions or rashes NDMAN/LINEMAN documented in this encounter Plan of Treatment Upcoming Encounters Date Type Department Care Team (Late st Contact Info) Description 10/23/2024 9:30 AM CDT Office Visit [facility] [address] [place] [address], [address] [place] [address] [place] [address] [place], [place] [phone] Johnny Penn MD [address] [facility] [place] [phone] documented as of this encounter Visit Diagnoses Diagnosis Chest tightness- Primary Other chest pain documented in this encounter Additional Health Concerns Assessment Noted Time PHQ-9 Depression Total Score: 3 02/07/20 24 9:33 AM CDT documented as of this encounter Care Teams Aircraft Power Plant Assembler Relationship Specialty Start Date End Date Esha Grimm PA-C [address] [place] [phone] PCP - General Family Medicine 05/04/23 Diana Desir, [facility] [address] [place] [address] Pharmacist Pharmacist 04/17/21 Rain Galaviz PA-C [address] [place] [address] [address] [place] [facility] [place] [phone] Physician Metal Pickling Equipment Operator Dermatology 04/28/21 Tavia Wyatt MD [address] [place] [address] [address] [facility] [place] [facility] [place] [id number] Dermatology 07/14/21 Erica Farrell APRN SPEECH CORRECTION ASSISTANT [address] [place], [place] 12[address] Nurse Practitioner Cardiovascular Disease 09/09/21 Rich Barrett MD [address] [address] Physician Ophthalmology 01/21/22 Neil Kent MD [address] [place] [address] [id number] Dermatology 02/24/22 Diana Desir, [facility] 3033 [place], [place] 493386 Assigned MTM Pharmacist 04/07/22 Livan Sharif MD [address] [place] [address] [place] 99[address]25 Cardiovascular Disease 05/14/22 Catherine Cm MD [address] [place] [address] [place] 349535 Cardiovascular Disease 07/21/22 Valery Veronica, PA-C 909 [place], [place] 0[address] Physician Metal Pickling Equipment Operator Dermatology 07/21/22 Brea Quinn APRN SPEECH CORRECTION ASSISTANT 500 [place] [address] Nurse Practitioner Dermatology 09/21/22 Alfonso Renteria MD 5775 [facility] [address] 200 [place], [place] 663226 Assigned Neuroscience Provider 04/02/23 Radha Lomeli APRN SPEECH CORRECTION ASSISTANT 6405 [facility] [address] [place], [place] 656475 Assigned Heart and Vascular Provider 05/28/23 Jelena David OD [address] [facility] [address] [place] [phone] Ophthalmology 06/15/23 Esha Grimm PA-C [address] [place] [phone] Assigned PCP 07/16/23 Valery Veronica PA-C 909 [place] [address] Physician Metal Pickling Equipment Operator Dermatology 09/19/23 Rey Tay MD 909 [place] [address] Gastroenterology 09/20/23 Rocky Zepeda DO 500 [place] [address] Physician Gastroenterology 09/20/23 Philip Dumont MD 714 [place] [address] Physician Ophthalmology 09/22/23 Meredith Carrera PA-C [address] [place] [address] Assigned Gastroenterology Provider 11/01/23 Neil Kent MD [address] [address] Dermatology 11/02/23 [place] [address] [address] Neurological Surgery 12/26/23 Audrey Waite PA-C [address] [place] [address] Physician Metal Pickling Equipment Operator Dermatology 02/28/24 Valery Veronica PA-C 976037 [address] [address] Physician Metal Pickling Equipment Operator Dermatology 04/10/24 Herminia Hatch MD [facility]5 [place], [place] [phone] Assigned Rheumatology Provider 07/02/24 documented as of this encounter
--- OUTSIDE RECORDS SUMMARY | 2024-08-28 18:29 | XMS_ITS | Encounter Summary ---
Author Organization [facility] Address [address] [place] [address] Care Team Providers Care Vest Front Presser Name Role Phone Diana Desir [facility] Unavailable Rain Galaviz PA-C Unavailable Tavia Wyatt MD Unavailable Erica Farrell APRN GAS LINE REPAIRER Unavailable Rich Barrett MD Unavailable [phone] Neil Kent MD Unavailable Diana Desir [facility] Unavailable Livan Sharif MD Unavailable Catherine Cm MD Unavailable + Valery Veronica PA-C Unavailable [phone] Brea Quinn JUNIOR NETWORK ADMINISTRATOR GAS LINE REPAIRER Unavailable Brea Quinn JUNIOR NETWORK ADMINISTRATOR GAS LINE REPAIRER Unavailable Jose Francisco Johnson MD Unavailable Alfonso Renteria MD Unavailable [phone] Esha Grimm PA-C Primary Care Provider Radha Lomeli APRN GAS LINE REPAIRER Unavailable Jelena David OD Unavailable Pao Joseph RN Unavailable Unavailable Esha Grimm PA-C Unavailable [phone] Valery Veronica PA-C Unavailable [phone] Rey Tay MD Unavailable Rocky Zepeda DO Unavailable Philip Dumont MD Unavailable [phone] Meredith Carrera PA-C Unavailable [phone] Neil Kent MD Unavailable Juan Pablo Emmanuel MD Unavailable [phone] Audrey Waite PA-C Unavailable [phone] Valery Veronica PA-C Unavailable [phone] Herminia Hatch MD Unavailable Encounter Details Date Type Department Care Team (Late st Contact Info) Description 08/25/2023 [facility] Medical Advice [facility] [address] [address] Marija Polanco RN Social History [...] week 03/10/2023 How often do you attend [facility] or orthodoxy services? 1 to 4 times [...] 0 06/20/2023 [facility] of Occupat ional [...] at this level? 30 min 03/10/2023 [place] Depression Scale Answer Date Recorded [place] Depression Score 5 01/14/2021 Last EPDS Self [...] PM CDT Legal Sex Female 4:13 AM MASTIC SPRAYER Gender Identity Female 03/02/2021 5:45 PM CDT Sexual Orientation Straight 02/28/2020 12 :51 AM CDT documented as of this encounter Plan of Treatment Upcoming Encounters Date Type Department Care Team (Late st Contact Info) Description 10/23/2024 9:30 AM CDT Office Visit [facility] Neurology [address], [address] [place] [address] [place] [address] [place] [address] Johnny Penn MD [address] [place] [address] documented as of this encounter Visit Diagnoses Not on filedocumented in this encounter Additional Health Concerns Infection Onset Date Last Indicated Resolved Time Rule Out COVID-19 12/26/2023 12/26/2023 12/26/2023 9:50 AM CDT Rule Out COVID-19 04/09/2024 04/09/2024 04/10/2024 6:48 PM CDT Assessment Noted Time PHQ-9 Depression Total Score: 4 06/20/20 23 8:40 AM MASTIC SPRAYER documented as of this encounter Care Teams Vest Front Presser Relationship Specialty Start Date End Date Esha Grimm PA-C [address] [place] [address] PCP - General Family Medicine 05/04/23 Diana Desir, [facility] [address] [place], [place] [address] Pharmacist Pharmacist 04/17/21 Rain Galaviz PA-C [address] [place] [address] [address] [place] [address] Physician Hotel Security Officer Dermatology 04/28/21 Tavia Wyatt MD [address] [place] [address] [place] [address] [id number] Dermatology 07/14/21 Erica Farrell APRN GAS LINE REPAIRER 6[address] [facility] [address] [place], [place] 64[address] Nurse Practitioner Cardiovascular Disease 09/09/21 Rich Barrett MD 516 [facility] 9A [place], [place] 322435 Physician Ophthalmology 01/21/22 Neil Kent MD 500 [place], [place] 438585 Dermatology 02/24/22 Diana Desir, [facility] 30[address] [place] [address] Assigned MTM Pharmacist 04/07/22 Livan Sharif MD [address], [facility] [address] [place] 426845 Cardiovascular Disease 05/14/22 Catherine Cm MD [address] [facility] [address] [place] 604515 Cardiovascular Disease 07/21/22 Valery Veronica, PA-C 909 [place], [place] 403755 Physician Hotel Security Officer Dermatology 07/21/22 Brea Quinn APRN GAS LINE REPAIRER 500 [place], [place] 461435 Nurse Practitioner Dermatology 09/21/22 Brea Quinn APRN GAS LINE REPAIRER [address] [place] [address] 345482 Assigned Surgical Provider 10/09/22 05/01/24 [place] [address] [address] [facility] 300 [place], [place] 737707 Assigned Musculoskeletal Provider 10/09/22 05/01/24 Alfonso Renteria MD [address] [facility] 200 [place], [place] 408746 Assigned Neuroscience Provider 04/02/23 Radha Lomeli APRN GAS LINE REPAIRER 6[address] [facility] [address] [place] [address] Assigned Heart and Vascular Provider 05/28/23 Jelena David OD [address] [facility] [address] MD Ophthalmology 06/15/23 Pao Joseph, VJ Personal Advocate & Liaison (PAL) Nurse 08/01/23 11/07/23 Esha Grimm PA-C [address] [place] [phone] Assigned PCP 07/16/23 Valery Veronica PA-C [address] [place] [address] 792745 Physician Hotel Security Officer Dermatology 09/19/23 Rey Tay MD [address] [place] [address] 723005 Gastroenterology 09/20/23 Rocky Zepeda DO [address] [place] [address] 678015 Physician Gastroenterology 09/20/23 Philip Dumont MD [address] [place] [address] 681225 Physician Ophthalmology 09/22/23 Meredith Carrera PA-C [address] [place] [address] 773865 Assigned Gastroenterology Provider 11/01/23 Neil Kent MD [address] [place] [address] Dermatology 11/02/23 [place] [address] 204307 Neurological Surgery 12/26/23 Audrey Waite PA-C 500 [place] [address] Physician Hotel Security Officer Dermatology 02/28/24 Valery Veronica PA-C 679630 [place], [place] [address] Physician Hotel Security Officer Dermatology 04/10/24 Herminia Hatch MD [facility]5 [place] [address] Assigned Rheumatology Provider 07/02/24 documented as of this encounter
--- OUTSIDE RECORDS SUMMARY | 2024-08-28 18:29 | XMS_ITS | Encounter Summary ---
Author Organization [facility] Address [address] [place] [address] Care Team Providers Care Mechanical Product Engineer Name Role Phone Diana Desir [facility] Unavailable Rain Galaviz PAUcheC Unavailable Tavia Wyatt MD Unavailable Erica Farrell SIDE GLUER METAL MINER BLASTING Unavailable Rich Barrett MD Unavailable [phone] Neil Kent MD Unavailable Kendrick Desirelle Stanislav [facility] Unavailable Livan Sharif MD Unavailable Catherine Cm MD Unavailable + Valery Veronica-C Unavailable Brea Quinn SIDE GLUER METAL MINER BLASTING Unavailable [phone] Alfonso Renteria MD Unavailable [phone] Esha GrimmC Primary Care Provider Radha Lomeli SIDE GLUER METAL MINER BLASTING Unavailable Jelena David OD Unavailable [place], Esha M PA-C Unavailable [phone] Valery Veronica PA-C Unavailable Rey Tay MD Unavailable Rocky Zepeda DO Unavailable hPilip Dumont MD Unavailable [phone] Meredith Carrera PA-C Unavailable [phone] Neil Kent MD Unavailable Juan Pablo Emmanuel MD Unavailable Audrey Waite PA-C Unavailable [phone] Valery Veronica PA-C Unavailable Herminia Hatch MD Unavailable Reason for Visit * Reason Comments Urgent Care Since this morning- discomfort and achy pain in breast/ arm pit area STD Had std testing abou t a month ago and was told to be re tested a month later- still experiencing some lower abdominal discomfort/ pressure Encounter Details Date Type Department Care Team (Late st Contact Info) Description 08/03/2024 2:45 PM BLOOD BANK LABORATORY TECHNOLOGIST Office Visit [facility] [place] [address] [place] [phone] Jaron Hager PA-C [address] [place], [place] [phone] Abdominal discomfort (Primary Dx); Chest discomfort; Screen for STD (sexually transmitted disease) Social [...] PHQ-2 Score 1 02/07/[facility] - Occupational [...] exercise at this level? 20 min 05/07/2024 [place] Depression Scale Answer Date Recorded [place] Depression Score 5 01/14/2021 Last EPDS Self [...] PM CDT Legal Sex Female 4:13 AM BLOOD BANK LABORATORY TECHNOLOGIST Gender Identity Female 03/02/2021 5:45 PM CDT Sexual Orientation Straight 02/28/2020 12 :51 AM CDT documented as of this encounter Last Filed Vital Signs Vital Sign Reading Time Taken Comments Blood Pressure 102/66 08/03/2024 2:02 PM BLOOD BANK LABORATORY TECHNOLOGIST Pulse 69 08/03/2024 2:02 PM BLOOD BANK LABORATORY TECHNOLOGIST Temperature 36.9 C (98.4 F) 08/03/2024 2:02 PM BLOOD BANK LABORATORY TECHNOLOGIST Respiratory Rate 18 08/03/2024 2:02 PM BLOOD BANK LABORATORY TECHNOLOGIST Oxygen Saturation 98% 08/03/2024 2:02 PM BLOOD BANK LABORATORY TECHNOLOGIST Inhaled Oxygen Concentration - - Weight 91.2 kg (201 lb) 08/03/2024 2:02 PM BLOOD BANK LABORATORY TECHNOLOGIST Height - - Body Mass Index 32.44 05/31/2024 3:37 PM BLOOD BANK LABORATORY TECHNOLOGIST documented in this encounter Progress Notes * Jaron Hager PA-C - 08/03/2024 2:45 PM CST Assessment & Plan: Problem List Items Addressed This Visit None Visit Diagnoses Abdominal discomfort - Primary Relevant Orders Wet preparation (Completed) UA Macroscopic with reflex to Microscopic and Culture (Completed) Chlamydia trachomatis/Neisseria gonorrhoeae by PCR Chest discomfort Relevant Orders EKG 12-lead complete w/read - Clinics (Completed) Screen for STD (sexually transmitted disease) Relevant Orders HIV Antigen Antibody Combo [place] Treponema Abs w Reflex to RPR and Titer Hepatitis C antibody Hepatitis B core antibody Medical Decision Making Patient with history of cardiac symptoms presents with less than 24 hours of right anterior chest discomfort. EKG shows normal sinus rhythm. No signs of breast mass or cellulitis on today's exam. Symptoms are consistent with a mild muscle strain of the right chest. Continue with conservative measures. STD screening labs were ordered as requested. Urinalysis and wet prep are negative. Discussed treatment and symptomatic care. Allergies and medication interactions reviewed. Discussed signs of worsening symptoms and when to follow-up with PCP if no symptom improvement. Subjective: Kim Johnson is a 24 year old female with cardiac history, here for evaluation of right upper chest discomfort. Onset of symptoms was this morning. Patient was in the gym exercising yesterday. No known injury or trauma. No increased pains with movement. No difficulties breathing. Patient denies any palpable lump or mass in the region. Patient also notes that she was post to follow-up for repeatSTD screening. She is requesting these labs to be done today. The following portions of the patient's history [...] use: Not Currently Comment: social Objective: BP 102/66 Pulse 69 Temp 98.4 ??F (36.9 ??C) (Oral) Resp 18 Wt 91.2 kg (201 lb) SpO2 98% BMI 32.44 kg/m?? General appearance - alert, well appearing, and in no distress and non-toxic Chest - right anterior upper chest wall is tender to palpation, otherwise clear lung sounds, no signs respiratory distress Heart - normal rate, regular rhythm, normal S1, S2, no murmurs, rubs, clicks or gallops Skin - chest wall: No erythema, swelling, palpable masses, or ecchymosis, skin is intact, skin is normal warmth to touch Lab & Imaging Results Results for orders placed or performed in visit on 08/03/24 UA Macroscopic with reflex to Microscopic and Culture Status: Normal Specimen: Urine, Clean Catch Result Value Ref Range Color Urine Yellow Colorless, Straw, Light Yellow, Yellow Appearance Urine Clear Clear Glucose Urine Negative Negative mg/dL Bilirubin Urine Negative Negative Ketones Urine Negative Negative mg/dL Specific [place] Urine 1.010 1.003 - 1.035 Blood Urine Negative Negative pH Urine 7.0 5.0 - 7.0 Protein Albumin Urine Negative Negative mg/dL Urobilinogen Urine 0.2 0.2, 1.0 E.U./dL Nitrite Urine Negative Negative Leukocyte Esterase Urine Negative Negative Narrative Microscopic not indicated Wet preparation Status: Abnormal Specimen: Vagina; Swab Result Value Ref Range Trichomonas Absent Absent Yeast Absent Absent Clue Cells Absent Absent WBCs/high power field 2+ (A) None I personally reviewed these results and discussed findings with the patient. The use of [employer] dictation services was used to construct the content of this note; any grammatical errors are non-intentional. Please contact the author directly if you are in need of any clarification. D BANK LABORATORY TECHNOLOGIST documented in this encounter Plan of Treatment Upcoming Encounters Date Type Department Care Team (Late st Contact Info) Description 10/23/2024 9:30 AM CDT Office Visit [facility] Neurology [facility] [address] [facility], [address] [place] [address] [place] [address] [place] [address] Johnny Penn MD [address] [facility] [place] [phone] documented as of this encounter Procedures Procedure Name Priority Date/Time Associated Diagnosis Comments HIV ANTIGEN ANTIBODY COMBO Routine 08/03/2024 3:04 PM BLOOD BANK LABORATORY TECHNOLOGIST Screen for STD (sexually transmitted disease) TREPONEMA ABS W REFLEX TO RPR AND TITER Routine 08/03/2024 3:04 PM BLOOD BANK LABORATORY TECHNOLOGIST Screen for STD (sexually transmitted disease) HEPATITIS C ANTIBODY Routine 08/03/2024 3:04 PM BLOOD BANK LABORATORY TECHNOLOGIST Screen for STD (sexually transmitted disease) HEPATITIS B CORE ANTIBODY Routine 08/03/2024 3:04 PM BLOOD BANK LABORATORY TECHNOLOGIST Screen for STD (sexually transmitted disease) CHLAMYDIA TRACHOMATIS/NEISSERI A GONORRHOEAE BY PCR Routine 08/03/2024 2:28 PM BLOOD BANK LABORATORY TECHNOLOGIST Abdominal discomfort WET PREPARATION Routine 08/03/2024 2:16 PM BLOOD BANK LABORATORY TECHNOLOGIST Abdominal discomfort UA MACROSCOPIC WITH REFLEX TO MICRO AND CULTURE Routine 08/03/2024 2:15 PM BLOOD BANK LABORATORY TECHNOLOGIST Abdominal discomfort EKG 12-LEAD COMPLETE W/READ - CLINICS Routine 08/03/2024 Chest discomfort documented in this encounter Results * Hepatitis B core antibody (08/03/2024 3:04 PM BLOOD BANK LABORATORY TECHNOLOGIST) Hepatitis B Core Antibody Total Nonreactive Nonreactive 08/03/2024 8:55 PM BLOOD BANK LABORATORY TECHNOLOGIST LABORATORY Comment:Nonreactive hepatiti s B core antibody test results indicate the absence of exposure to hepatitis B virus and no evidence of recent, past/resolved, or chronic hepatitis B. Blood BLOOD SPECIMEN / Unknown Venipuncture / Unknown 08/03/2024 3:04 PM BLOOD BANK LABORATORY TECHNOLOGIST 08/03/2024 3:05 PM BLOOD BANK LABORATORY TECHNOLOGIST Jaron Hager PA-C LAB - BLOOD ORDERABLES Final Result Performing Organization Address [facility]/ZIP Co de Phone Number LABORATORY [facility] [place] [facility] [address] [facility], [address] * Hepatitis C antibody (08/03/2024 3:04 PM BLOOD BANK LABORATORY TECHNOLOGIST) Hepatitis C Antibody Nonreactive Nonreactive 08/03/2024 8:55 PM BLOOD BANK LABORATORY TECHNOLOGIST LABORATORY Comment:A nonreactive screen ing test result [...] Unknown Venipuncture / Unknown 08/03/2024 3:04 PM BLOOD BANK LABORATORY TECHNOLOGIST 08/03/2024 3:05 PM BLOOD BANK LABORATORY TECHNOLOGIST Jaron Hager PA-C LAB - BLOOD ORDERABLES Final Result Performing Organization Address City/[facility]/ZIP Co de Phone Number [facility] [place] [facility] [address] [facility], [address] * Treponema Abs w Reflex to RPR and Titer (08/03/2024 3:04 PM BLOOD BANK LABORATORY TECHNOLOGIST) Treponema Antibody Total Nonreactive Nonreactive 08/04/2024 10:06 AM BLOOD BANK LABORATORY TECHNOLOGIST SPECIALTY CORE/PROT/EN DO Blood BLOOD SPECIMEN / Unknown Venipuncture / Unknown 08/03/2024 3:04 PM BLOOD BANK LABORATORY TECHNOLOGIST 08/03/2024 3:05 PM BLOOD BANK LABORATORY TECHNOLOGIST Jaron Hager PA-C LAB - BLOOD ORDERABLES Final Result SPECIALTY CORE/PROT/ENDO Specialty Core/Prot/Endo [address] [facility], [address] * HIV Antigen Antibody Combo [place] (08/03/2024 3:04 PM BLOOD BANK LABORATORY TECHNOLOGIST) HIV Antigen Antibody Combo Nonreactive Nonreactive 08/03/2024 9:29 PM BLOOD BANK LABORATORY TECHNOLOGIST [facility] Comment:Negative HIV-1 p24 a ntigen [...] Unknown Venipuncture / Unknown 08/03/2024 3:04 PM BLOOD BANK LABORATORY TECHNOLOGIST 08/03/2024 3:05 PM BLOOD BANK LABORATORY TECHNOLOGIST Jaron Hager PA-C LAB - BLOOD ORDERABLES Final Result Performing Organization Address City/[facility] Co de Phone Number LABORATORY [facility] [place] [facility] [address] [facility], [address] * Chlamydia trachomatis/Neisseria gonorrhoeae by PCR (08/03/2024 2:28 PM BLOOD BANK LABORATORY TECHNOLOGIST) Pathologist [facility] Chlamydia Trachomatis Negative Negative 08/04/2024 11:14 AM BLOOD BANK LABORATORY TECHNOLOGIST [facility] Comment: Negative for C. trachomatis rRNA by community health nurse staff mediated amplification. A negative result by community health nurse staff mediated amplification does not preclude the presence of infection because results are dependent on proper and adequate collection, absence of inhibitors and sufficient rRNA to be detected. Neisseria gonorrhoeae Negative Negative 08/04/2024 11:14 AM BLOOD BANK LABORATORY TECHNOLOGIST [facility] Comment:Negative for N. gono rrhoeae rRNA by community health nurse staff mediated amplification. A negative result by community health nurse staff mediated amplification does not preclude the presence of C. trachomatis infection because results are dependent on proper and adequate collection, absence of inhibitors and sufficient rRNA to be detected. CTNG Specimen Source Vagina 08/04/2024 11:14 AM BLOOD BANK LABORATORY TECHNOLOGIST [facility] Swab VAGINAL STRUCTURE / Unknown Non-blood Collection / Unknown 08/03/2024 2:28 PM BLOOD BANK LABORATORY TECHNOLOGIST 08/03/2024 2:28 PM BLOOD BANK LABORATORY TECHNOLOGIST Mani Gentile MD LAB - MICRO GENERAL ORDERABLES F inal Result [facility] Inf. Diseases Diag. Lab [address] [facility], [address] [place] [address] * (ABNORMAL) Wet preparation (08/03/2024 2:16 PM BLOOD BANK LABORATORY TECHNOLOGIST) Trichomonas Absent Absent REINA 08/03/2024 2:22 PM BLOOD BANK LABORATORY TECHNOLOGIST LABORATORY Yeast Absent Absent REINA 08/03/2024 2:22 PM BLOOD BANK LABORATORY TECHNOLOGIST LABORATORY Clue Cells Absent Absent REINA 08/03/2024 2:22 PM BLOOD BANK LABORATORY TECHNOLOGIST LABORATORY WBCs/high power field 2+(A) None REINA 08/03/2024 2:22 PM BLOOD BANK LABORATORY TECHNOLOGIST LABORATORY Swab VAGINAL STRUCTURE / Unknown Non-blood Collection / Unknown 08/03/2024 2:16 PM BLOOD BANK LABORATORY TECHNOLOGIST 08/03/2024 2:16 PM BLOOD BANK LABORATORY TECHNOLOGIST us Mani Gentile MD LAB - MICRO GENERAL ORDERABLES F inal Result LABORATORY [facility] [place] [facility] [address] [place] [address] (no room number, 1st floor of clinic) [place] [address] * UA Macroscopic with reflex to Microscopic and Culture (08/03/2024 2:15 PM BLOOD BANK LABORATORY TECHNOLOGIST) Color Urine Yellow Colorless, Straw, Light Yellow, Yellow 08/03/2024 2:20 PM BLOOD BANK LABORATORY TECHNOLOGIST LABORATORY Appearance Urine Clear Clear 08/03/19 2:20 PM BLOOD BANK LABORATORY TECHNOLOGIST [facility] Glucose Urine Negative Negative mg/dL 08/03/2024 2:20 PM BLOOD BANK LABORATORY TECHNOLOGIST [facility] Bilirubin Urine Negative Negative 2:20 PM BLOOD BANK LABORATORY TECHNOLOGIST [facility] Ketones Urine Negative Negative mg/dL 08/03/2024 2:20 PM BLOOD BANK LABORATORY TECHNOLOGIST [facility] Specific [place] Urine 1.010 1.003 - 1.035 08/03/2024 2:20 PM BLOOD BANK LABORATORY TECHNOLOGIST [facility] Blood Urine Negative Negative 08/03/2024 2:20 PM BLOOD BANK LABORATORY TECHNOLOGIST [facility] pH Urine 7.0 5.0 - 7.0 08/03/2024 2:20 PM BLOOD BANK LABORATORY TECHNOLOGIST [facility] Protein Albumin Urine Negative Negative mg/dL 08/03/2024 2:20 PM BLOOD BANK LABORATORY TECHNOLOGIST [facility] Urobilinogen Urine 0.2 0.2, 1.0 E.U./dL 08/03/2024 2:20 PM BLOOD BANK LABORATORY TECHNOLOGIST [facility] Nitrite Urine Negative Negative 08/03/2024 2:20 PM BLOOD BANK LABORATORY TECHNOLOGIST [facility] Leukocyte Esterase Urine Negative Negative 08/03/2024 2:20 PM BLOOD BANK LABORATORY TECHNOLOGIST LABORATORY Urine URINE SPECIMEN OBTAINED BY CLEAN CATCH PROCEDURE / Unknown Non-blood Collection / Unknown 08/03/2024 2:15 PM BLOOD BANK LABORATORY TECHNOLOGIST 08/03/2024 2:15 PM BLOOD BANK LABORATORY TECHNOLOGIST Narrative [facility] - 08/03/2024 2:20 PM BLOOD BANK LABORATORY TECHNOLOGIST Microscopic not indicated us Mnai Gentile MD LAB - URINE ORDERABLES Final Res ult LABORATORY [facility] [place] [facility] [address] [facility] (no room number, 1st floor of clinic) [place] [address] * EKG 12-lead complete w/read - Clinics (08/03/2024) us Mani Gentile MD ECG ORDERABLES Final Result documented in this encounter Visit Diagnoses Diagnosis Abdominal discomfort- Primary Abdominal pain, unspecified site Chest discomfort Other chest pain Screen for STD (sexually transmitted disease) Screening examination for venereal disease documented in this encounter Additional Health Concerns Assessment Noted Time PHQ-9 Depression Total Score: 3 02/07/20 9:33 AM CDT documented as of this encounter Care Teams Mechanical Product Engineer Relationship Specialty Start Date End Date Esha Grimm PA-C [address] [facility] [phone] PCP - General Family Medicine 05/04/23 Diana Desir, [facility] [address] [place] [address] Pharmacist Pharmacist 04/17/21 Rain Galaviz PA-C [address] [place] [address] [address] [place] [address] Physician Civil Cad Designer Dermatology 04/28/21 Tavia Wyatt MD [address] [place] [address] [address] [place] [address] Dermatology 07/14/21 Erica Farrell APRN METAL MINER BLASTING [address] [id number] [place] [address] Nurse Practitioner Cardiovascular Disease 09/09/21 Rich Barrett MD [address] [employer] [address] [place], [place] [address] Physician Ophthalmology 01/21/22 Neil Kent MD 500 [place], [place] [address] Dermatology 02/24/22 Diana Desir, [facility] [address] [place] [address] Assigned MTM Pharmacist 04/07/22 Livan Sharif MD [address] [facility] [address] [place] [id number] Cardiovascular Disease 05/14/22 Catherine Cm MD [address] [facility] [address] [place] [address] Cardiovascular Disease 07/21/22 Valery Veronica PA-C [address] [place], [place] 6[address] Physician Civil Cad Designer Dermatology 07/21/22 Brea Quinn APRN METAL MINER BLASTING [address] [place], [place] 217165 Nurse Practitioner Dermatology 09/21/22 Alfonso Renteria MD [address] [facility] [address] [place], [place] 258396 Assigned Neuroscience Provider 04/02/23 Radha Lomeli APRN METAL MINER BLASTING [address] [place] [address] Assigned Heart and Vascular Provider 05/28/23 Jelena David OD [address] [place] [address] Ophthalmology 06/15/23 Esha Grimm PA-C [address] [place] [address] Assigned PCP 07/16/23 Valery Veronica PA-C [address] [place] [address] Physician Civil Cad Designer Dermatology 09/19/23 Rey Tay MD [address] [place] [address] MD Gastroenterology 09/20/23 Rocky Zepeda DO 500 [place] [address] Physician Gastroenterology 09/20/23 Philip Dumont MD [address] [place] [address] Physician Ophthalmology 09/22/23 Meredith Carrera PA-C 9 [place] [address] Assigned Gastroenterology Provider 11/01/23 Neil Kent MD [address] [address] Dermatology 11/02/23 [place] [address] [place] [address] [address] Neurological Surgery 12/26/23 Audrey Waite PA-C 500 [place] [address] Physician Civil Cad Designer Dermatology 02/28/24 Valery Veronica PA-C [address]355 [address] [place] [address] Physician Civil Cad Designer Dermatology 04/10/24 Herminia Hatch MD [address] [place] [id number] Assigned Rheumatology Provider 07/02/24 documented as of this encounter
--- OUTSIDE RECORDS SUMMARY | 2024-08-28 18:29 | XMS_ITS | Encounter Summary ---
Author Organization [facility] Address [address] [place] [address] Care Team Providers Care Pharmacy Affairs Assistant Name Role Phone Diana Desir [facility] Unavailable Rain Galaviz PAUcheC Unavailable Tavia Wyatt MD Unavailable Erica Farrell WINDOW SHADE CLOTH SEWER SECONDS HANDLER Unavailable Rich Barrett MD Unavailable [phone] Neil Kent MD Unavailable Kendrick Desirelle Stanislav [facility] Unavailable Livan Sharif MD Unavailable Catherine Cm MD Unavailable + Valery Veronica-C Unavailable Brea Quinn WINDOW SHADE CLOTH SEWER SECONDS HANDLER Unavailable [phone] Alfonso Renteria MD Unavailable [phone] Esha GrimmC Primary Care Provider Radha Lomeli WINDOW SHADE CLOTH SEWER SECONDS HANDLER Unavailable Jelena David OD Unavailable Esha Grimm PA-C Unavailable [phone] Valery Veronica PA-C Unavailable [phone] Rey Tay MD Unavailable Rocky Zepeda DO Unavailable Philip Dumont MD Unavailable [phone] Meredith Carrera-C Unavailable [phone] Neil Kent MD Unavailable Juan Pablo Emmanuel MD Unavailable [phone] Audrey Waite PA-C Unavailable [phone] Valery Veronica PA-C Unavailable [phone] Herminia Hatch MD Unavailable Encounter Details Date Type Department Care Team (Late st Contact Info) Description 06/20/2024 MyC Medical Advice [address] [address] Carley Myles RN Social History [...] exercise at this level? 20 min 05/07/2024 [place] Depression Scale Answer Date Recorded [place] Depression Score 5 01/14/2021 Last EPDS Self [...] PM CDT Legal Sex Female 4:13 AM PATENT PARALEGAL Gender Identity Female 03/02/2021 5:45 PM CDT Sexual Orientation Straight 02/28/2020 12 :51 AM CDT documented as of this encounter Plan of Treatment Upcoming Encounters Date Type Department Care Team (Late st Contact Info) Description 10/23/2024 9:30 AM CDT Office Visit [facility] Neurology [address], [address] [place] [address] [place] [address] [address] [place] [id number] Johnny Penn MD [address] [place] [id number] documented as of this encounter Visit Diagnoses Not on filedocumented in this encounter Additional Health Concerns Assessment Noted Time PHQ-9 Depression Total Score: 3 02/07/20 24 9:33 AM CDT documented as of this encounter Care Teams Pharmacy Affairs Assistant Relationship Specialty Start Date End Date Esha Grimm [facility]-C [address] [facility] [phone] PCP - General Family Medicine 05/04/23 Diana Desir, [facility] [address] [place] [address] Pharmacist Pharmacist 04/17/21 Rain Galaviz PA-C [address] [place] [address] [address] [place] [facility] [place] [address] Physician Electromechanical Technician Dermatology 04/28/21 Tavia Wyatt MD [address] [place] [address] [address] [place] [facility] [place] [address] Dermatology 07/14/21 Erica aFrrell APRN SECONDS HANDLER [address] [place] [address] Nurse Practitioner Cardiovascular Disease 09/09/21 Rich Barrett MD [address] 515725 Physician Ophthalmology 01/21/22 Neil Kent MD [address] [place] [address] Dermatology 02/24/22 Diana Desir, [facility] [address] [place] [address] Assigned MTM Pharmacist 04/07/22 Livan Sharif MD [address] [facility] [address] [place] [address] Cardiovascular Disease 05/14/22 Catherine Cm MD [address] [facility] [address] [place] [address] Cardiovascular Disease 07/21/22 Valery Veronica PA-C [address] [place] [address] Physician Electromechanical Technician Dermatology 07/21/22 Brea Quinn APRN SECONDS HANDLER [address] [place] [address] 808845 Nurse Practitioner Dermatology 09/21/22 Alfonso Renteria MD [address] [facility] 200 [place], [place] [address] Assigned Neuroscience Provider 04/02/23 Radha Lomeli APRN SECONDS HANDLER [address] [place] [address] Assigned Heart and Vascular Provider 05/28/23 Jelena David OD [facility] [facility] [place] [address] Ophthalmology 06/15/23 Esha Grimm PA-C [address] [place] [phone] Assigned PCP 07/16/23 Valery Veronica PA-C [address] [place] [address]655 Physician Electromechanical Technician Dermatology 09/19/23 Rey Tay MD [address]09 [place], [place] [address] MD Gastroenterology 09/20/23 Rocky Zepeda DO 500 [place] [address] Physician Gastroenterology 09/20/23 Philip Dumont MD 516 [place], [place] 8[address] Physician Ophthalmology 09/22/23 Meredith Carrera PA-C 909 [place], [place] [address] Assigned Gastroenterology Provider 11/01/23 Neil Kent MD [address] [place] [address]4720 Dermatology 11/02/23 [place] [address] [address] [facility] [place], [place] 8[address] Neurological Surgery 12/26/23 Audrey Waite PA-C 500 [place] [address] Physician Electromechanical Technician Dermatology 02/28/24 Valery Veronica PA-C 145461 [place] [address] Physician Electromechanical Technician Dermatology 04/10/24 Herminia Hatch MD [facility] [place] [address] Assigned Rheumatology Provider 07/02/24 documented as of this encounter
--- OUTSIDE RECORDS SUMMARY | 2024-08-28 18:29 | XMS_ITS | Encounter Summary ---
Author Organization [place] Address [address] [place] [address] Care Team Providers Care Cardiology Rn Name Role Phone Diana Desir [facility] Unavailable Rain Galaviz PAUcheC Unavailable aTvia Wyatt MD Unavailable Erica Farrell ENTRY LEVEL ACCOUNT MANAGER ECONOMIC DEVELOPER Unavailable Rich Barrett MD Unavailable [phone] Neil Kent MD Unavailable Kendrick Desirelle Stanislav [facility] Unavailable Livan Sharif MD Unavailable Catherine Cm MD Unavailable + Valery Veronica-C Unavailable [phone] Brea Quinn ENTRY LEVEL ACCOUNT MANAGER ECONOMIC DEVELOPER Unavailable [phone] Alfonso Renteria MD Unavailable [phone] Esha GrimmC Primary Care Provider Radha Lomeli ENTRY LEVEL ACCOUNT MANAGER ECONOMIC DEVELOPER Unavailable Jelena David OD Unavailable Alfa, Esha M PA-C Unavailable Valery Veronica PA-C Unavailable Rey Tay MD Unavailable Rocky Zepeda DO Unavailable Philip Dumont MD Unavailable Meredith Carrera PA-C Unavailable [phone] Neil Kent MD Unavailable Juan Pablo Emmanuel MD Unavailable [phone] Audrey Waite PA-C Unavailable [phone] Valery Veronica PA-C Unavailable Herminia Hatch MD Unavailable Encounter Details Date Type Department Care Team (Late st Contact Info) Description 08/16/2024 Orders Only (auto-released) [facility] [address] [place] [address] Fabiano Correa, DROP BOARD MAN [address] [place] [address] Palpitations Social History Tobacco Use Types Packs/Day [...] do you attend chur or hoahaoism services? 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 Gender Identity Female 03/02/2021 5:45 PM CDT Sexual Orientation Straight 02/28/2020 12 :51 AM CDT documented as of this encounter Plan of Treatment Upcoming Encounters Date Type Department Care Team (Late st Contact Info) Description 10/23/2024 9:30 AM CDT Office Visit [facility] Neurology [address], [address] [place] [address] [place] [address] [place], [place] [address]EN[place] [id number] Johnny Penn MD [address] [place] [address] documented as of this encounter Visit Diagnoses Diagnosis Palpitations documented in this encounter Additional Health Concerns Assessment Noted Time PHQ-9 Depression Total Score: 3 02/07/20 24 9:33 AM CDT documented as of this encounter Care Teams Cardiology Rn Relationship Specialty Start Date End Date Esha Grimm PA-C [address] [place] [address] PCP - General Family Medicine 05/04/23 Diana Desir, [facility] [address] [place] [address] Pharmacist Pharmacist 04/17/21 Rain Galaviz PA-C [address] [place] [address] [address] [place] [address] Physician Senior Patrol Agent Dermatology 04/28/21 Tavia Wyatt MD [address] [place] [address] [address] [place] [address] Dermatology 07/14/21 Erica Farrell APRN ECONOMIC DEVELOPER [address] [address] Nurse Practitioner Cardiovascular Disease 09/09/21 Rich Barrett MD 516 [facility] 9A [place], [place] 8[address]645 Physician Ophthalmology 01/21/22 Neil Kent MD 500 [place], [place] 189235 Dermatology 02/24/22 Diana Desir, [facility] [address] [place] [address] Assigned MTM Pharmacist 04/07/22 Livan Sharif MD [address], [facility] [address] [place] 120505 Cardiovascular Disease 05/14/22 Catherine Cm MD [address] [facility] [address] [place] [address]75 Cardiovascular Disease 07/21/22 Valery Veronica PA-C 909 [place], [place] 9[address]5 Physician Senior Patrol Agent Dermatology 07/21/22 Brea Quinn APRN ECONOMIC DEVELOPER 500 [place], [place] 9[address]995 Nurse Practitioner Dermatology 09/21/22 Alfonso Renteria MD 5775 [facility] 200 [place], [place] 315256 Assigned Neuroscience Provider 04/02/23 Radha Lomeli APRN ECONOMIC DEVELOPER [address] [place] 7[address]195 Assigned Heart and Vascular Provider 05/28/23 Jelena David OD 3305 [facility] [place] [address] Ophthalmology 06/15/23 Esha Grimm PA-C [address] [place] [address] Assigned PCP 07/16/23 Valery Veronica PA-C 909 [place] [address] Physician Senior Patrol Agent Dermatology 09/19/23 Rey Tay MD [address] [place] [address] MD Gastroenterology 09/20/23 Rocky Zepeda DO 500 [place] [address] Physician Gastroenterology 09/20/23 Philip Dumont MD [address] [place] [address] Physician Ophthalmology 09/22/23 Meredith Carrera PA-C 9 [place] [address] Assigned Gastroenterology Provider 11/01/23 Neil Kent MD [address] [address] Dermatology 11/02/23 [place] [address] [address] Neurological Surgery 12/26/23 Audrey Waite PA-C 500 [place] [address] Physician Senior Patrol Agent Dermatology 02/28/24 Valery Veronica PA-C [id number] [place] [address] Physician Senior Patrol Agent Dermatology 04/10/24 Herminia Hatch MD [address] [place] [address] [id number] Assigned Rheumatology Provider 07/02/24 documented as of this encounter
--- OUTSIDE RECORDS SUMMARY | 2024-08-28 18:29 | XMS_ITS | Encounter Summary ---
Author Organization [place] Address [address] [place] [address] Care Team Providers Care Coat Repair Inspector Name Role Phone Diana Desir [facility] Unavailable [phone] Rain Galaviz PA-C Unavailable Tavia Wyatt MD Unavailable Erica Farrell APRN EVENT DESIGNER Unavailable Rich Barrett MD Unavailable [phone] Neil Kent MD Unavailable Diana Desir [facility] Unavailable [phone] Livan Sharif MD Unavailable Catherine Cm MD Unavailable + Valery Veronica PA-C Unavailable Brea Quinn SUGAR BOILER EVENT DESIGNER Unavailable Brea Quinn SUGAR BOILER EVENT DESIGNER Unavailable Jose Francisco Johnson MD Unavailable Alfonso Renteria MD Unavailable [phone] Esha Grimm PA-C Primary Care Provider Radha Lomeli APRN EVENT DESIGNER Unavailable Jelena David OD Unavailable Pao Joseph RN Unavailable Unavailable Esha Grimm PA-C Unavailable Valery Veronica PA-C Unavailable [phone] Rey Tay MD Unavailable Rocky Zepeda DO Unavailable Philip Dumont MD Unavailable [phone] Meredith Carrera PA-C Unavailable [phone] Neil Kent MD Unavailable Juan Pablo Emmanuel MD Unavailable [phone] Audrey Waite PA-C Unavailable [phone] Valery Veronica PA-C Unavailable Herminia Hatch MD Unavailable Encounter Details Date Type Department Care Team (Late st Contact Info) Description 08/11/2023 [facility] Medical Advice [address] [address] Pao Joseph, RN Social History [...] 06/20/2023 [facility] - Occupational Stress Questionnaire Answer Date [...] exercise at this level? 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 Neurology [address], [address] [place] [address] [place] [address] [place] [address] Johnny Penn MD [address] [place] [id number] documented as of this encounter Visit Diagnoses Not on filedocumented in this encounter Additional Health Concerns Infection Onset Date Last Indicated Resolved Time Rule Out COVID-19 12/26/2023 12/26/2023 12/26/2023 9:50 AM CDT Rule Out COVID-19 04/09/2024 04/09/2024 04/10/2024 6:48 PM CDT Assessment Noted Time PHQ-9 Depression Total Score: 4 06/20/20 23 8:40 AM LINUX KERNEL DEVELOPER documented as of this encounter Care Teams Coat Repair Inspector Relationship Specialty Start Date End Date Esha Grimm PA-C [address] [place] [address] PCP - General Family Medicine 05/04/23 Diana Desir, [facility] [address] [place], [place] [address] Pharmacist Pharmacist 04/17/21 Rain Galaviz PA-C [address] [place] [address] [address] [place] [address] Physician Structural Analysis Engineer Dermatology 04/28/21 Tavia Wyatt MD [address] [place] [address] [address] [place] [address] Dermatology 07/14/21 Erica Farrell APRN EVENT DESIGNER 6405 [facility] [address] [place] [address] Nurse Practitioner Cardiovascular Disease 09/09/21 Rich Barrett MD 516 [facility] 9A [place], [place] [address] Physician Ophthalmology 01/21/22 Neil Kent MD 500 [place], [place] 214195 Dermatology 02/24/22 Diana Desir, [facility] 3033 [place] [address] Assigned MTM Pharmacist 04/07/22 Livan Sharif MD [address], [facility] [address] [place], [place] 330[address] Cardiovascular Disease 05/14/22 Catherine Cm MD [address] [facility] [address] [place], [place] 383225 Cardiovascular Disease 07/21/22 Valery Veronica, PAUcheC 909 [place], [place] 151165 Physician Structural Analysis Engineer Dermatology 07/21/22 Brea Quinn APRN EVENT DESIGNER 500 [place], [place] 214125 Nurse Practitioner Dermatology 09/21/22 Brea Quinn APRN EVENT DESIGNER [address] [place] [address] Assigned Surgical Provider 10/09/22 05/01/24 [place] [address] [address] [facility] 300 [place] [address] Assigned Musculoskeletal Provider 10/09/22 05/01/24 Alfonso Renteria MD 5775 [facility] 200 [place], [place] 613106 Assigned Neuroscience Provider 04/02/23 Radha Lomeli, ARLEEN EVENT DESIGNER [address] [facility] [address] [place] [address] Assigned Heart and Vascular Provider 05/28/23 Jelena David OD 3305 [facility] [place] [address] MD Ophthalmology 06/15/23 Pao Joseph, VJ Personal Advocate & Liaison (PAL) Nurse 08/01/23 11/07/23 Esha Grimm PA-C [address] [place] [phone] Assigned PCP 07/16/23 Valery Veronica PA-C [address] [place] [address] 172305 Physician Structural Analysis Engineer Dermatology 09/19/23 Rey Tay MD [address] [place] [address] 59[address] Gastroenterology 09/20/23 Rocky Zepeda DO [address] [place] [address] 629585 Physician Gastroenterology 09/20/23 Philip Dumont MD [address] [place] [address] 029205 Physician Ophthalmology 09/22/23 Meredith Carrera PA-C [address] [place] [address] 654595 Assigned Gastroenterology Provider 11/01/23 Neil Kent MD [address] [address] Dermatology 11/02/23 [place] [address] [place] [address] Neurological Surgery 12/26/23 Audrey Waite PAUcheC 500 [place] [address] Physician Structural Analysis Engineer Dermatology 02/28/24 Valery Veronica PAUcheC [address] [address] [address] Physician Structural Analysis Engineer Dermatology 04/10/24 Herminia Hatch MD [facility]5 [place] [address] Assigned Rheumatology Provider 07/02/24 documented as of this encounter
--- OUTSIDE RECORDS SUMMARY | 2024-08-28 18:30 | XMS_ITS | Encounter Summary ---
Author Organization [place] Address [address] [place] [address] Care Team Providers Care Peritoneal Dialysis Registered Nurse Name Role Phone Diana Desir [facility] Unavailable Rain Galaviz PAUcheC Unavailable Tavia Wyatt MD Unavailable Erica Farrell DIETARY ASSISTANT SURVEY CHIEF Unavailable Rich Barrett MD Unavailable [phone] Neil Kent MD Unavailable Kendrick Desirelle Stanislav [facility] Unavailable Livan Sharif MD Unavailable Catherine Cm MD Unavailable + Valery Veronica-C Unavailable Brea Quinn DIETARY ASSISTANT SURVEY CHIEF Unavailable Alfonso Renteria MD Unavailable [phone] Esha GrimmC Primary Care Provider [phone] Radha Lomeli DIETARY ASSISTANT SURVEY CHIEF Unavailable Jelena David OD Unavailable Esha Grimm PA-C Unavailable [phone] Valery VeronicaC Unavailable [phone] Rey Tay MD Unavailable Rocky Zepeda DO Unavailable Philip Dumont MD Unavailable [phone] Meredith CarreraC Unavailable [phone] Neil Kent MD Unavailable Juan Pablo Emmanuel MD Unavailable [phone] Audrey WaiteC Unavailable [phone] Valery VeronicaC Unavailable [phone] Herminia Hatch MD Unavailable Encounter Details Date Type Department Care Team (Late st Contact Info) Description 06/06/2024 Orders Only [facility] [address] [place] [address] Outside, Provider Social History Tobacco Use Types [...] Date Recorded PHQ-2 Score 1 02/07/2024 [facility] - Occupational Stress Questionnaire Answer [...] exercise at this level? 20 min 05/07/2024 Clayhole Depression Scale Answer Date Recorded [place] Depression Score 5 01/14/2021 Last EPDS Self [...] PM CDT Legal Sex Female 4:13 AM [employer] Gender Identity Female 03/02/2021 5:45 PM CDT Sexual Orientation Straight 02/28/2020 12 :51 AM CDT documented as of this encounter Plan of Treatment Upcoming Encounters Date Type Department Care Team (Late st Contact Info) Description 10/23/2024 9:30 AM CDT Office Visit [facility] Neurology [address], [address] [place] [address] [place] [address] [facility] [place] [address] Johnny Penn MD 8857 [facility] [place] [address] documented as of this encounter Procedures Procedure Name Priority Date/Time Associated Diagnosis Comments HLA RESULT REPORT 06/06/2024 2:04 PM [employer] documented in this encounter Results * HLA Result Report (06/06/2024 2:04 PM [employer]) us Provider Outside LAB - IMMUNOLOGY ORDERABLES Fin al Result documented in this encounter Visit Diagnoses Not on filedocumented in this encounter Additional Health Concerns Assessment Noted Time PHQ-9 Depression Total Score: 3 02/07/20 24 9:33 AM CDT documented as of this encounter Care Teams Peritoneal Dialysis Registered Nurse Relationship Specialty Start Date End Date Esha Grimm PA-C [address] [place] [address] PCP - General Family Medicine 05/04/23 Diana Desir, [facility] [address] [email or web address] [address] Pharmacist Pharmacist 04/17/21 Rain Galaviz PA-C [address] [place] [address] [address] [place] [address] Physician Soap Inspector Dermatology 04/28/21 Tavia Wyatt MD [address] [place] [address] [address] [place] [address] Dermatology 07/14/21 Erica Farrell APRN SURVEY CHIEF 6405 [facility] [address] [place] [address] Nurse Practitioner Cardiovascular Disease 09/09/21 Rich Barrett MD 516 [facility] 9A [place], [place] 227325 Physician Ophthalmology 01/21/22 Neil Kent MD 500 [place] [address] Dermatology 02/24/22 Diana Desir, [facility] [address] [place] [address] Assigned [place] Pharmacist 04/07/22 Livan Sharif MD [address] [facility] [address] [place] [address] Cardiovascular Disease 05/14/22 Catherine Cm MD [address] [facility]00 [place] [address] Cardiovascular Disease 07/21/22 Valery Veronica PA-C [address] [place] [address] 924325 Physician Soap Inspector Dermatology 07/21/22 Brea Quinn APRN SURVEY CHIEF [address] [place] [address] 022925 Nurse Practitioner Dermatology 09/21/22 Alfonso Renteria MD 5775 [facility] 200 [place], [place] 834326 Assigned Neuroscience Provider 04/02/23 Radha Lomeli APRN SURVEY CHIEF [address] [facility]00 [place] [address] Assigned Heart and Vascular Provider 05/28/23 Jelena David OD [address] [facility] [address] [place] [id number] Ophthalmology 06/15/23 Esha Grimm PA-C [address] [place] [address] Assigned PCP 07/16/23 Valery Veronica PA-C 9 [place] [address] Physician Soap Inspector Dermatology 09/19/23 Rey Tay MD [address] [place] [address] 521315 MD Gastroenterology 09/20/23 Rocky Zepeda DO [address] [place] [address] 675275 Physician Gastroenterology 09/20/23 Philip Dumont MD [address] [place] [address] 716505 Physician Ophthalmology 09/22/23 Meredith Carrera PA-C 9 [place], [place] 086105 Assigned Gastroenterology Provider 11/01/23 Neil Kent MD [address] [address] Dermatology 11/02/23 [place] [address] [address] [facility] [place], [place] 7[address] Neurological Surgery 12/26/23 Audrey Waite PA-C 500 [place] [address] Physician Soap Inspector Dermatology 02/28/24 Valery Veronica PA-C [address] [address] Physician Soap Inspector Dermatology 04/10/24 Herminia Hatch MD [address] [place] [address] Assigned Rheumatology Provider 07/02/24 documented as of this encounter
--- OUTSIDE RECORDS SUMMARY | 2024-08-28 18:30 | XMS_ITS | Encounter Summary ---
Author Organization [place] Address [address] [place] [address] Care Team Providers Care Ballistics Professor Name Role Phone Diana Desir [facility] Unavailable [phone] Rain Galaviz PA-C Unavailable Tavia Wyatt MD Unavailable Erica Farrell APRN SUPERVISOR REWORK Unavailable Rich Barrett MD Unavailable [phone] Neil Kent MD Unavailable Diana Desir [facility] Unavailable [phone] Livan Sharif MD Unavailable Catherine Cm MD Unavailable + Valery Veronica-C Unavailable Brea Quinn CASH OFFICE WORKER SUPERVISOR REWORK Unavailable Brea Quinn CASH OFFICE WORKER SUPERVISOR REWORK Unavailable [phone] Jose Francisco Johnson MD Unavailable Sydnie Martinez RN Unavailable Unavailable Alfonso Renteria MD Unavailable [phone] Esha Grimm PA-C Primary Care Provider [phone] Radha Lomeli APRN SUPERVISOR REWORK Unavailable Jelena David OD Unavailable Pao Joseph RN Unavailable Unavailable Esha Grimm PA-C Unavailable [phone] Valery Veronica PA-C Unavailable [phone] Rey Tay MD Unavailable Rocky Zepeda DO Unavailable Philip Dumont MD Unavailable Meredith Carrera PA-C Unavailable Neil Kent MD Unavailable Juan Pablo Emmanuel MD Unavailable Audrey Waite PA-C Unavailable Valery Veronica PA-C Unavailable Herminia Hatch MD Unavailable Encounter Details Date Type Department Care Team (Late st Contact Info) Description 07/27/2023 [facility] Medical Advice [address] [address] Diana Desir, [facility] 30[address] [place] [address] Social History Tobacco Use Types Packs/Day Years [...] you attend [facility] or congregation services? 1 to 4 times [...] exercise at this level? 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 Gender Identity Female 03/02/2021 5:45 PM CDT Sexual Orientation Straight 02/28/2020 12 :51 AM CDT documented as of this encounter Plan of Treatment Upcoming Encounters Date Type Department Care Team (Late st Contact Info) Description 10/23/2024 9:30 AM CDT Office Visit [facility] Neurology Clinics [address], [address] [place] [address] [place] [address] [address] [place] [address] Johnny Penn MD [address] [place] [address] documented as of this encounter Visit Diagnoses Not on filedocumented in this encounter Additional Health Concerns Infection Onset Date Last Indicated Resolved Time Rule Out COVID-19 12/26/2023 12/26/2023 12/26/2023 9:50 AM CDT Rule Out COVID-19 04/09/2024 04/09/2024 04/10/2024 6:48 PM CDT Assessment Noted Time PHQ-9 Depression Total Score: 4 06/20/20 8:40 AM SHOT TUBE MACHINE TENDER documented as of this encounter Care Teams Ballistics Professor Relationship Specialty Start Date End Date Esha Grimm PA-C [address] [place] [address] PCP - General Family Medicine 05/04/23 Diana Desir, [facility] [address] [place] [address] Pharmacist Pharmacist 04/17/21 Rain Galaviz PA-C [address] [place] [address] [address] [place] [address] Physician Network Development Coordinator Dermatology 04/28/21 Tavia Wyatt MD [address] [place] [address] [address] [place] [address] Dermatology 07/14/21 Erica Farrell APRN SUPERVISOR REWORK 6405 [facility] [address] [place] [address] Nurse Practitioner Cardiovascular Disease 09/09/21 Rich Barrett MD 516 [facility] 9A [place] [address] Physician Ophthalmology 01/21/22 Neil Kent MD 500 [place] [address] Dermatology 02/24/22 Diana Desir, [facility] 30[address] [place] [address] Assigned [place] Pharmacist 04/07/22 Livan Sharif MD [address] 884[address] Cardiovascular Disease 05/14/22 Catherine Cm MD [address] 889515 Cardiovascular Disease 07/21/22 Valery Veronica, PA-C 909 [place] [address] Physician Network Development Coordinator Dermatology 07/21/22 Brea Quinn APRN SUPERVISOR REWORK 500 [place] [address] Nurse Practitioner Dermatology 09/21/22 Brea Quinn APRN SUPERVISOR REWORK [address] [place] [address] Assigned Surgical Provider 10/09/22 05/01/24 [place] [address] [address] Assigned Musculoskeletal Provider 10/09/22 05/01/24 Sydnie Martinez RN Personal Advocate & Liaison (PAL) Family Medicine 03/28/23 07/31/23 Alfonso Renteria MD 5775 [facility] [address] 200 [place] [address] Assigned Neuroscience Provider 04/02/23 Radha Lomeli APRN SUPERVISOR REWORK 6405 [facility] [address] [place] [address] Assigned Heart and Vascular Provider 05/28/23 Jelena David OD [address] [facility] [address] Ophthalmology 06/15/23 Pao Joseph, VJ Personal Advocate & Liaison (PAL) Nurse 08/01/23 11/07/23 Esha Grimm PA-C [address] [place] [address] Assigned PCP 07/16/23 Valery Veronica PA-C [address] [place] [address] 352625 Physician Network Development Coordinator Dermatology 09/19/23 Rey Tay MD [address] [place] [address] 654485 Gastroenterology 09/20/23 Rocky Zepeda DO [address] [place] [address] [id number] Physician Gastroenterology 09/20/23 Philip Dumont MD [address] [place] [address] 507415 Physician Ophthalmology 09/22/23 Meredith Carrera PA-C 909 [place] [address] Assigned Gastroenterology Provider 11/01/23 Neil Kent MD [address] [address] Dermatology 11/02/23 [place] [address] 926877 Neurological Surgery 12/26/23 Audrey Waite PA-C 500 [place] [address] Physician Network Development Coordinator Dermatology 02/28/24 Valery Veronica PA-C 339459 [place] [address] Physician Network Development Coordinator Dermatology 04/10/24 Herminia Hatch MD 1875 [place], [place] 44038125 Assigned Rheumatology Provider 07/02/24 documented as of this encounter
--- OUTSIDE RECORDS SUMMARY | 2024-08-28 18:30 | XMS_ITS | Encounter Summary ---
Author Organization [facility] Address [address] [place] [address] Care Team Providers Care Technology Coach Name Role Phone Diana Desir [facility] Unavailable Rain Galaviz PA-C Unavailable Tavia Wyatt MD Unavailable Erica Farrell APRN QUILL MACHINE OPERATOR Unavailable Rich Barrett MD Unavailable [phone] Neil Kent MD Unavailable Diana Desir [facility] Unavailable Livan Sharif MD Unavailable Catherine Cm MD Unavailable + Valery Veronica PA-C Unavailable Brea Quinn MARBLE MACHINE OPERATOR QUILL MACHINE OPERATOR Unavailable Brea Quinn MARBLE MACHINE OPERATOR QUILL MACHINE OPERATOR Unavailable Jose Francisco Johnson MD Unavailable Alfonso Renteria MD Unavailable [phone] Esha Grimm PA-C Primary Care Provider Radha Lomeli APRN QUILL MACHINE OPERATOR Unavailable Jelena David OD Unavailable Pao Joseph RN Unavailable Unavailable Esha Grimm PA-C Unavailable [phone] Valery Veronica PA-C Unavailable [phone] Rey Tay MD Unavailable Rocky Zepeda DO Unavailable Philip Dumont MD Unavailable [phone] Meredith Carrera PA-C Unavailable [phone] Neil Kent MD Unavailable Juan Pablo Emmanuel MD Unavailable [phone] Audrey Waite PA-C Unavailable [phone] Valery Veronica PA-C Unavailable Herminia Hatch MD Unavailable Reason for Visit * Reason Onset Date Comments Call Back 08/01/2023 Encounter Details Date Type Department Care Team (Late st Contact Info) Description 08/01/2023 Telephone [facility] [address] [place] [address] Esha Grimm PA-C [address] [place] [address] Call Back Social History Tobacco [...] Recorded PHQ-2 Score 0 06/20/2023 [facility] - Occupational [...] at this level? 30 min 03/10/2023 [place] Depression Scale Answer Date Recorded [place] Depression Score 5 01/14/2021 Last EPDS [...] PM CDT Legal Sex Female 4:13 AM CUSTOMER RELATIONS ASSISTANT Gender Identity Female 03/02/2021 5:45 PM CDT Sexual Orientation Straight 02/28/2020 12 :51 AM CDT documented as of this encounter Miscellaneous Notes * Telephone Encounter - Esha Grimm PA-C - 08/02/2023 7:49 AM CST See telephone encounter. Seen by [facility] who reviewed imaging and note fracture. Custom wrap made for the patient. Esha Grimm PA-C on 08/02/2023 at 7:49 AM OMER RELATIONS ASSISTANT * Telephone Encounter - Debbie Shahid - [...] we send this information to you in [facility] or would you prefer to receive a phone call?: No preference Okay to leave a detailed message?: Yes at Home number on file [phone] (home) OMER RELATIONS ASSISTANT documented in this encounter Plan of Treatment Upcoming Encounters Date Type Department Care Team (Late st Contact Info) Description 10/23/2024 9:30 AM CDT Office Visit [facility] Neurology [address], [address] [place] [phone] [place] [address]ZO [facility] [place] [id number] Johnny Penn MD [address] [place] [address] documented as of this encounter Visit Diagnoses Not on filedocumented in this encounter Additional Health Concerns Infection Onset Date Last Indicated Resolved Time Rule Out COVID-19 12/26/2023 12/26/2023 12/26/2023 9:50 AM CDT Rule Out COVID-19 04/09/2024 04/09/2024 04/10/2024 6:48 PM CDT Assessment Noted Time PHQ-9 Depression Total Score: 4 06/20/20 23 8:40 AM CUSTOMER RELATIONS ASSISTANT documented as of this encounter Care Teams Technology Coach Relationship Specialty Start Date End Date Esha Grimm PA-C [address] [place] [address] PCP - General Family Medicine 05/04/23 Diana Desir, [facility] [address] [place] [address] Pharmacist Pharmacist 04/17/21 Rain Galaviz PA-C [address] [place] [address] [address] [place] [address] Physician Byproducts Extractor Dermatology 04/28/21 Tavia Wyatt MD [address] [place] [address] [address] [place] [id number] Dermatology 07/14/21 Erica Farrell APRN [facility] [address] [place] [address]107[address] Nurse Practitioner Cardiovascular Disease 09/09/21 Rich Barrett MD 516 [facility] 9A [place], [place] 77[address] Physician Ophthalmology 01/21/22 Neil Kent MD 500 [place], [place] [address] Dermatology 02/24/22 Diana Desir, [facility] [address] [place] [address] Assigned MTM Pharmacist 04/07/22 Livan Sharif MD [address] [place] [address] Cardiovascular Disease 05/14/22 Catherine Cm MD [address] [place] [address] Cardiovascular Disease 07/21/22 Valery Veronica PA-C 909 [place] [address] Physician Byproducts Extractor Dermatology 07/21/22 Brea Quinn APRN QUILL MACHINE OPERATOR 500 [place], [place] 813175 Nurse Practitioner Dermatology 09/21/22 Brea Quinn APRN QUILL MACHINE OPERATOR 6401 [facility] [place] [address] Assigned Surgical Provider 10/09/22 05/01/24 [place] [address] [facility] 300 [place] [address] Assigned Musculoskeletal Provider 10/09/22 05/01/24 Alfonso Renteria MD 5775 [facility] 200 [place], [place] 545136 Assigned Neuroscience Provider 04/02/23 Radha Lomeli, MARBLE MACHINE OPERATOR QUILL MACHINE OPERATOR [address] [facility] [address] [place] [address]35 Assigned Heart and Vascular Provider 05/28/23 Jelena David OD [address] [facility] [address] Ophthalmology 06/15/23 Pao Joseph, RN Personal Advocate & Liaison (PAL) Nurse 08/01/23 11/07/23 Esha Grimm PA-C [address] [place] [address] Assigned PCP 07/16/23 Valery Veronica PA-C [address] [place] [address] 373755 Physician Byproducts Extractor Dermatology 09/19/23 Rey Tay MD [address] [place] [address] 063955 MD Gastroenterology 09/20/23 Rocky Zepeda DO [address] [place] [address] 146045 Physician Gastroenterology 09/20/23 Philip Dumont MD [address] [place] [address] 532125 Physician Ophthalmology 09/22/23 Meredith Carrera PA-C [address] [place] [address] Assigned Gastroenterology Provider 11/01/23 Neil Kent MD [address] [place] [address] Dermatology 11/02/23 [place] [address] [place] [address] Neurological Surgery 12/26/23 Audrey Waite PA-C 500 [place] [address] Physician Byproducts Extractor Dermatology 02/28/24 Valery Veronica PA-C [address] [place] [address] Physician Byproducts Extractor Dermatology 04/10/24 Herminia Hatch MD [address] [place] [address] Assigned Rheumatology Provider 07/02/24 documented as of this encounter
--- OUTSIDE RECORDS SUMMARY | 2024-08-28 18:30 | XMS_ITS | Encounter Summary ---
Author Organization [facility] Address [address] [place] [address] Care Team Providers Care Clinical Rehabilitation Aide Name Role Phone Diana Desir [facility] Unavailable Rain Galaviz PAUcheC Unavailable Tavia Wyatt MD Unavailable Erica Farrell SAFETY SECURITY OFFICER CONSERVATOR ARTIFACTS Unavailable Rich Barrett MD Unavailable [phone] Neil [place] MD Unavailable Kendrick Desirelle Stanislav [facility] Unavailable Livan Sharif MD Unavailable Catherine Cm MD Unavailable + Valery Veronica-C Unavailable Brea Quinn SAFETY SECURITY OFFICER CONSERVATOR ARTIFACTS Unavailable Alfonso Renteria MD Unavailable [phone] Esha GrimmC Primary Care Provider [phone] Radha Lomeli SAFETY SECURITY OFFICER CONSERVATOR ARTIFACTS Unavailable Jelena David OD Unavailable [phone] Esha Grimm PA-C Unavailable Valery Veronica PA-C Unavailable [phone] Rey Tay MD Unavailable Rocky Zepeda DO Unavailable Philip Dumont MD Unavailable [phone] Meredith CarreraC Unavailable [phone] Neil Kent MD Unavailable Juan Pablo Emmanuel MD Unavailable [phone] Audrey Waite-C Unavailable [phone] Valery Veronica-C Unavailable [phone] Herminia Hatch MD Unavailable Encounter Details Date Type Department Care Team (Late st Contact Info) Description 06/21/2024 MyC Medical Advice [address] [address] Antonella Eldridge RN Social History [...] Score 1 02/07/2024 [facility] - Occupational Stress Questionnaire Answer Date [...] exercise at this level? 20 min 05/07/2024 [place] Depression Scale Answer Date Recorded [place] [...] PM CDT Legal Sex Female 4:13 AM PLUMBER'S ASSISTANT Gender Identity Female 03/02/2021 5:45 PM CDT Sexual Orientation Straight 02/28/2020 12 :51 AM CDT documented as of this encounter Plan of Treatment Upcoming Encounters Date Type Department Care Team (Late st Contact Info) Description 10/23/2024 9:30 AM CDT Office Visit [facility] Neurology [address], [address] [place] [address] [place] [address] [address] [place] [id number] Johnny Penn MD [address] [facility] [place] 496[address] documented as of this encounter Visit Diagnoses Not on filedocumented in this encounter Additional Health Concerns Assessment Noted Time PHQ-9 Depression Total Score: 3 02/07/20 24 9:33 AM CDT documented as of this encounter Care Teams Clinical Rehabilitation Aide Relationship Specialty Start Date End Date Esha Grimm PA-C [address] [facility] [place] [address] PCP - General Family Medicine 05/04/23 Diana Desir, [facility] [address] [place] [address] Pharmacist Pharmacist 04/17/21 Rain Galaviz PA-C [address] [place] [address] [address] [facility] [place] [address] Physician Floral Arranger Dermatology 04/28/21 Tavia Wyatt MD [address] [place] [address] [address] [place] [address] Dermatology 07/14/21 Erica Farrell APRN CONSERVATOR ARTIFACTS [address] [place] [address] Nurse Practitioner Cardiovascular Disease 09/09/21 Rich Barrett MD [address] [place] [address] 352375 Physician Ophthalmology 01/21/22 Neil Kent MD [address] [place] [address] Dermatology 02/24/22 Diana Desir [facility] [address] [place] [address] Assigned MTM Pharmacist 04/07/22 Livan Sharif MD [address] [place] [address] Cardiovascular Disease 05/14/22 Catherine Cm MD [address] [facility] [address] [place] [address] Cardiovascular Disease 07/21/22 Valery Veronica PA-C [address] [place] [address] 670355 Physician Floral Arranger Dermatology 07/21/22 Brea Quinn APRN CONSERVATOR ARTIFACTS 500 [place], [place] 051465 Nurse Practitioner Dermatology 09/21/22 Alfonso Renteria MD 5775 [facility] 200 [place], [place] 016396 Assigned Neuroscience Provider 04/02/23 Radha Lomeli APRN CONSERVATOR ARTIFACTS 6405 [facility] [address] [address] [place] [address] Assigned Heart and Vascular Provider 05/28/23 Jelena David OD [address] [facility] [place] [address] Ophthalmology 06/15/23 Esha Grimm PA-C [address] [place] [address] Assigned PCP 07/16/23 Valery Veronica PA-C [address] [place] [address] 306935 Physician Floral Arranger Dermatology 09/19/23 Rey Tay MD 909 [place], [place] 200825 MD Gastroenterology 09/20/23 Rocky Zepeda DO 500 [place] [address] Physician Gastroenterology 09/20/23 Philip Dumont MD 516 [place] [address] Physician Ophthalmology 09/22/23 Meredith Carrera PA-C 9 [place] [address] Assigned Gastroenterology Provider 11/01/23 Neil [place] MD [address] [place] [address] 652050 Dermatology 11/02/23 [place] [address] [address] [facility] [place], [place] 276[address] Neurological Surgery 12/26/23 Audrey Waite PA-C 500 [place] [address] Physician Floral Arranger Dermatology 02/28/24 Valery Veronica PA-C [address] [place] [address] Physician Floral Arranger Dermatology 04/10/24 Herminia Hatch MD [address] [place] [address] Assigned Rheumatology Provider 07/02/24 documented as of this encounter
--- OUTSIDE RECORDS SUMMARY | 2024-08-28 18:30 | XMS_ITS | Encounter Summary ---
Author Organization [facility] Address [address] [place] [address] Care Team Providers Care Heel Seat Filler Name Role Phone Diana Desir [facility] Unavailable [phone] Rain Galaviz PAUcheC Unavailable [phone] Tavia Wyatt MD Unavailable Erica Farrell KEYBOARD TEACHER BALANCER SCALE Unavailable Rich Barrett MD Unavailable [phone] Neil [place] MD Unavailable Kendrick Desirelle Stanislav [facility] Unavailable Livan Sharif MD Unavailable Catherine Cm MD Unavailable + Valery Veronica-C Unavailable Brea Quinn KEYBOARD TEACHER BALANCER SCALE Unavailable [phone] Alfonso Renteria MD Unavailable [phone] Esha GrimmC Primary Care Provider Radha Lomeli KEYBOARD TEACHER BALANCER SCALE Unavailable Jelena David OD Unavailable [place], Esha M PA-C Unavailable [phone] Valery Veronica PA-C Unavailable [phone] Rey Tay MD Unavailable Rocky Zepeda DO Unavailable Philip Dumont MD Unavailable [phone] Meredith Carrera-C Unavailable [phone] Neil Kent MD Unavailable Juan Pablo Emmanuel MD Unavailable [phone] Audrey Waite PA-C Unavailable [phone] Valery Veronica-C Unavailable [phone] Herminia Hatch MD Unavailable Encounter Details Date Type Department Care Team (Late st Contact Info) Description 06/05/2024 MyC Medical Advice [address] [address] Herminia Hatch MD [address] [place] [address] Social History Tobacco Use Types Packs/Day [...] Score 1 02/07/2024 [facility] [...] exercise at this level? 20 min 05/07/2024 [place] Depression Scale Answer Date Recorded [...] CDT Legal Sex Female 4:13 AM SHEET COMBINING OPERATOR Gender Identity Female 03/02/2021 5:45 PM CDT Sexual Orientation Straight 02/28/2020 12 :51 AM CDT documented as of this encounter Plan of Treatment Upcoming Encounters Date Type Department Care Team (Late st Contact Info) Description 10/23/2024 9:30 AM CDT Office Visit [facility] Neurology [address], [address] [place] [address] [place] [address] [address] [address] Johnny Penn MD [address] [place] [address] documented as of this encounter Visit Diagnoses Not on filedocumented in this encounter Additional Health Concerns Assessment Noted Time PHQ-9 Depression Total Score: 3 02/07/20 24 9:33 AM CDT documented as of this encounter Care Teams Heel Seat Filler Relationship Specialty Start Date End Date Esha Grimm PA-C [address] [place] [address] PCP - General Family Medicine 05/04/23 Diana Desir, [facility] [address] [place] [address] Pharmacist Pharmacist 04/17/21 Rain Galaviz PA-C [address] [place] [address] [address] 250 [place] [address] Physician Glassware Engraver Dermatology 04/28/21 Tavia Wyatt MD [address] [place] [address] [address] 250 [place] [address] Dermatology 07/14/21 Erica Farrell APRN BALANCER SCALE [address] [place] 4630500 [place], [place] 949835 Nurse Practitioner Cardiovascular Disease 09/09/21 Rich Barrett MD [address] 565[address] Physician Ophthalmology 01/21/22 Neil [place] MD [address] [place] [address] 219225 Dermatology 02/24/22 Diana Desir, [facility] [address] [place] [address] Assigned MTM Pharmacist 04/07/22 Livan Sharif MD [address], [facility] [address] [place] 363375 Cardiovascular Disease 05/14/22 Catherine Cm MD [address] [place] 209995 Cardiovascular Disease 07/21/22 Valery Veronica, PA-C 909 [place], [place] 6[address]265 Physician Glassware Engraver Dermatology 07/21/22 Brea Quinn APRN BALANCER SCALE 500 [place], [place] [address]195 Nurse Practitioner Dermatology 09/21/22 Alfonso Renteria MD 5775 [facility] 200 [place], [place] 749916 Assigned Neuroscience Provider 04/02/23 Radha Lomeli APRN BALANCER SCALE [address] [place] [address] Assigned Heart and Vascular Provider 05/28/23 Jelena David OD [facility] [facility] [place] [address] Ophthalmology 06/15/23 Esha Grimm PA-C [address] [place] [address] Assigned PCP 07/16/23 Valery Veronica PA-C 909 [place] [address] Physician Glassware Engraver Dermatology 09/19/23 Rey Tay MD [address] [place] [address] MD Gastroenterology 09/20/23 Rocky Zepeda DO 500 [place] [address] Physician Gastroenterology 09/20/23 Philip Dumont MD [address] [place] [address] Physician Ophthalmology 09/22/23 Meredith Carrera PA-C [address] [place] [address] Assigned Gastroenterology Provider 11/01/23 Neil Kent MD [address] [address] Dermatology 11/02/23 [place] [address] [address] Neurological Surgery 12/26/23 Audrey Waite PA-C 500 [place] [address] Physician Glassware Engraver Dermatology 02/28/24 Valery Veronica PA-C [address]261 [address] [place] [address] Physician Glassware Engraver Dermatology 04/10/24 Herminia Hatch MD [address] [place] [address] Assigned Rheumatology Provider 07/02/24 documented as of this encounter
--- OUTSIDE RECORDS SUMMARY | 2024-08-28 18:30 | XMS_ITS | Encounter Summary ---
Author Organization [facility] Address [address] [place] [address] Care Team Providers Care Technical Sales Support Specialist Name Role Phone Diana Desir [facility] Unavailable Rain Galaviz PA-C Unavailable Tavia Wyatt MD Unavailable Erica Farrell APRN PLATEN PRESS OPERATOR Unavailable Rich Barrett MD Unavailable [phone] Neil Kent MD Unavailable Diana Desir [facility] Unavailable Livan Sharif MD Unavailable Catherine Cm MD Unavailable + Valery Veronica PA-C Unavailable [phone] Brea Quinn CAMPGROUND HAND PLATEN PRESS OPERATOR Unavailable Brea Quinn CAMPGROUND HAND PLATEN PRESS OPERATOR Unavailable Jose Francisco Johnson MD Unavailable Alfonso Renteria MD Unavailable [phone] Esha Grimm PA-C Primary Care Provider Radha Lomeli APRN PLATEN PRESS OPERATOR Unavailable Jelena David OD Unavailable Pao Joseph RN Unavailable Unavailable Esha Grimm PA-C Unavailable [phone] Valery Veronica PA-C Unavailable Rey Tay MD Unavailable Rocky Zepeda DO Unavailable Philip Dumont MD Unavailable [phone] Meredith Carrera PA-C Unavailable [phone] Neil Kent MD Unavailable Juan Pablo Emmanuel MD Unavailable [phone] Audrey Waite PA-C Unavailable [phone] Valery Veronica PA-C Unavailable [phone] Herminia Hatch MD Unavailable Reason for Visit * Reason Onset Date Comments Outreach 08/01/2023 Encounter Details Date Type Department Care Team (Late st Contact Info) Description 08/01/2023 [facility] Medical Advice [employer] [address] [place] [address] Esha Grimm PA-C [id number] [place] [address] Outreach Social History Tobacco Use Types [...] PHQ-2 Score 0 06/20/2023 [facility] - Occupational Stress [...] exercise at this level? 30 min 03/10/2023 [place] Depression Scale Answer Date Recorded [place] Depression Score 5 01/14/2021 Last EPDS Self [...] PM CDT Legal Sex Female 4:13 AM GAS APPLIANCE SERVICER Gender Identity Female 03/02/2021 5:45 PM CDT Sexual Orientation Straight 02/28/2020 12 :51 AM CDT documented as of this encounter Miscellaneous Notes * Telephone Encounter - Pao Joseph RN - 08/01/2023 2:31 PM CST Esha Grimm PA-C- ANGEL LUIS. See pt's Mychart messages. Routed to PCP Pao Marcos RN PAL (Patient Advocate Liaison) [facility] APPLIANCE SERVICER documented in this encounter Plan of Treatment Upcoming Encounters Date Type Department Care Team (Late st Contact Info) Description 10/23/2024 9:30 AM CDT Office Visit [facility] Neurology [facility] - [address], [address] [place] [phone] [place] [address] [place], [place] [address] Johnny Penn MD [address] [place] [address] documented as of this encounter Visit Diagnoses Not on filedocumented in this encounter Additional Health Concerns Infection Onset Date Last Indicated Resolved Time Rule Out COVID-19 12/26/2023 12/26/2023 12/26/2023 9:50 AM CDT Rule Out COVID-19 04/09/2024 04/09/2024 04/10/2024 6:48 PM CDT Assessment Noted Time PHQ-9 Depression Total Score: 4 06/20/20 23 8:40 AM GAS APPLIANCE SERVICER documented as of this encounter Care Teams Technical Sales Support Specialist Relationship Specialty Start Date End Date Esha Grimm PA-C [address] [place] [address] PCP - General Family Medicine 05/04/23 Diana Desir, [facility] 30[address] [place] [address] Pharmacist Pharmacist 04/17/21 Rain Galaviz PA-C [address] [place] [address] [address] [place] [address] Physician Can Filling Room Sweeper Dermatology 04/28/21 Tavia Wyatt MD [address] [place] [address] [address] [place] [address] Dermatology 07/14/21 Erica Farrell APRN PLATEN PRESS OPERATOR [address] [place], [place] 76[address]85 Nurse Practitioner Cardiovascular Disease 09/09/21 Rich Barrett MD 516 [facility] [address] [place] [address] Physician Ophthalmology 01/21/22 Neil Kent MD 500 [place], [place] 760325 Dermatology 02/24/22 Diana Desir, [facility] [address] [place], [place] 184856 Assigned [place] Pharmacist 04/07/22 Livan Sharif MD [address], [address] [place], [place] 033045 Cardiovascular Disease 05/14/22 Catherine Cm MD [address] [place], [place] 330555 Cardiovascular Disease 07/21/22 Valery Veronica, PA-C 909 [place], [place] 557565 Physician Can Filling Room Sweeper Dermatology 07/21/22 Brea Quinn APRN PLATEN PRESS OPERATOR 500 [place], [place] 310135 Nurse Practitioner Dermatology 09/21/22 Brea Quinn APRN PLATEN PRESS OPERATOR 6401 [facility] [place] [facility] [place] [address] Assigned Surgical Provider 10/09/22 05/01/24 [place] [address] [place] [address] Assigned Musculoskeletal Provider 10/09/22 05/01/24 Alfonso Renteria MD 5775 [facility] 200 [place], [place] 609986 Assigned Neuroscience Provider 04/02/23 Radha Lomeli APRN PLATEN PRESS OPERATOR 6405 [facility] [address] [place] [address] Assigned Heart and Vascular Provider 05/28/23 Jelena David OD 3[address] [facility] [place] [address] Ophthalmology 06/15/23 Pao Joseph, RN Personal Advocate & Liaison (PAL) Nurse 08/01/23 11/07/23 Esha Grimm PA-C [address] [place] [phone] Assigned PCP 07/16/23 Valery Veronica PA-C 9 [place], [place] 660875 Physician Can Filling Room Sweeper Dermatology 09/19/23 Rey Tay MD 909 [place], [place] 558375 Gastroenterology 09/20/23 Rocky Zepeda DO 500 [place] [address] Physician Gastroenterology 09/20/23 Philip Dumont MD 516 [place] [address] Physician Ophthalmology 09/22/23 Meredith Carrera PA-C 909 [place] [address] Assigned Gastroenterology Provider 11/01/23 Neil eKnt MD [address] [address] MD Dermatology 11/02/23 [place] [address] [address] Neurological Surgery 12/26/23 Audrey Waite PA-C 500 [place] [address] Physician Can Filling Room Sweeper Dermatology 02/28/24 Valery Veronica PA-C 723899 [address], [place] [address] Physician Can Filling Room Sweeper Dermatology 04/10/24 Herminia Hatch MD [facility]5 [place], [place] 73353125 Assigned Rheumatology Provider 07/02/24 documented as of this encounter
--- OUTSIDE RECORDS SUMMARY | 2024-08-28 18:30 | XMS_ITS | Encounter Summary ---
Author Organization [place] Address [address] [place] [address] Care Team Providers Care Supervisor Bridges And Buildings Name Role Phone Diana Desir [facility] Unavailable Rain Galaviz PA-C Unavailable Tavia Wyatt MD Unavailable Erica Farrell APRN SPICE BLENDER Unavailable Rich Barrett MD Unavailable [phone] Neil Kent MD Unavailable Diana Desir [facility] Unavailable Livan Sharif MD Unavailable Catherine Cm MD Unavailable + Valery Veronica-C Unavailable Brea Quinn LINUX ADMIN ENGINEER SPICE BLENDER Unavailable Brea Quinn LINUX ADMIN ENGINEER SPICE BLENDER Unavailable Jose Francisco Johnson MD Unavailable Sydnie Martinez RN Unavailable Unavailable Alfonso Renteria MD Unavailable [phone] Esha Grimm PA-C Primary Care Provider [phone] Cheng Todd PA-C Unavailable Radha Lomeli APRN SPICE BLENDER Unavailable Jelena David OD Unavailable Pao Joseph RN Unavailable Unavailable Esha Grimm PA-C Unavailable [phone] Valery Veronica PA-C Unavailable [phone] Rey Tay MD Unavailable Rocky Zepeda DO Unavailable Philip Dumont MD Unavailable Meredith Carrera PA-C Unavailable [phone] Neil Kent MD Unavailable Juan Pablo Emmanuel MD Unavailable [phone] Audrey Waite PA-C Unavailable JeremíasValery damon PA-C Unavailable [phone] Herminia Hatch MD Unavailable Encounter Details Date Type Department Care Team (Late st Contact Info) Description 07/06/2023 MyC Medical Advice Adam [facility] Epilepsy Care [address] [facility], [address] [place] [address] Alfonso Renteria MD [address] [facility] [address] [place] [address] Social History Tobacco Use Types [...] PHQ-2 Score 0 06/20/2023 [facility] - [...] exercise at this level? 30 min 03/10/2023 [place] Depression Scale Answer Date Recorded [place] Depression Score 5 01/14/2021 Last EPDS [...] CDT Legal Sex Female 4:13 AM ELECTRICAL CONTROLS DESIGNER Gender Identity Female 03/02/2021 5:45 PM CDT Sexual Orientation Straight 02/28/2020 12 :51 AM CDT documented as of this encounter Miscellaneous Notes * Telephone Encounter - Genny Hyman PA-C - 07/07/2023 11:13 AM ELECTRICAL CONTROLS DESIGNER No lesions/abnormal findings on MRI to account for possible seizure activity. Last office note indicated: If repeat MRI was normal would reduce levetiracetam to 250 mg per day for two weeks and then stop. Ok to proceed with this plan. Call if questions, concerns, or worsening of symptoms with discontinuation of the medication Genny Hyman PA-C TRICAL CONTROLS DESIGNER documented in this encounter Plan of Treatment Upcoming Encounters Date Type Department Care Team (Late st Contact Info) Description 10/23/2024 9:30 AM CDT Office Visit [facility] Neurology [facility] [address] [facility], [address] [place] [address] [place] [address] [place], [place] [phone] Johnny Penn MD [address] [facility] [place] [id number] documented as of this encounter Visit Diagnoses Not on filedocumented in this encounter Additional Health Concerns Infection Onset Date Last Indicated Resolved Time Rule Out COVID-19 12/26/2023 12/26/2023 12/26/2023 9:50 AM CDT Rule Out COVID-19 04/09/2024 04/09/2024 04/10/2024 6:48 PM CDT Assessment Noted Time PHQ-9 Depression Total Score: 4 06/20/20 23 8:40 AM ELECTRICAL CONTROLS DESIGNER documented as of this encounter Care Teams Supervisor Bridges And Buildings Relationship Specialty Start Date End Date Esha Grimm PA-C [address] [place] [address] PCP - General Family Medicine 05/04/23 Diana Desir, [facility] [address] [place] [address] Pharmacist Pharmacist 04/17/21 Rain Galaviz PA-C [address] [place] [address] [address] [place] [address] Physician Pharmacognosist Dermatology 04/28/21 Tavia Wyatt MD [address] [place] [address] [address] [place] [address] Dermatology 07/14/21 Erica Farrell APRN SPICE BLENDER [address] [place], [place] 6[address]25 Nurse Practitioner Cardiovascular Disease 09/09/21 Rich Barrett MD [address] [facility] [address] [place], [place] 0[address] Physician Ophthalmology 01/21/22 Neil Kent MD [address] [place], [place] 512315 Dermatology 02/24/[address] [facility] [address] [place], [place] 154906 Assigned MTM Pharmacist 04/07/22 Livan Sharif MD [address] [facility] [place], [place] 3646[address] Cardiovascular Disease 05/14/22 Catherine Cm MD [address] [address] Cardiovascular Disease 07/21/22 Valery Veronica, PA-C [address] [place] [address] Physician Pharmacognosist Dermatology 07/21/22 Brea Quinn APRN SPICE BLENDER 500 [place], [place] 452885 Nurse Practitioner Dermatology 09/21/22 Brea Quinn APRN SPICE BLENDER [address] [facility] [place] [address] Assigned Surgical Provider 10/09/22 05/01/24 [place] [address] [address] [place] [address] Assigned Musculoskeletal Provider 10/09/22 05/01/24 Sydnie Martinez RN Personal Advocate & Liaison (PAL) Family Medicine 03/28/23 07/31/23 Alfonso Renteria MD [address] [facility] [place] 200 [place] [address] Assigned Neuroscience Provider 04/02/23 Cheng Todd PA-C [address] [place] [address] [id number] Assigned PCP 04/30/23 07/15/23 Radha Lomeli APRN SPICE BLENDER [address] [facility] [address] [place] [address] Assigned Heart and Vascular Provider 05/28/23 Jelena David OD [address] [facility] [place] [address] Ophthalmology 06/15/23 Pao Joseph, VJ Personal Advocate & Liaison (PAL) Nurse 08/01/23 11/07/23 Esha Grimm PAUcheC [address] [place] [phone] Assigned PCP 07/16/23 Valery Veronica PA-C [address] [place] [address] Physician Pharmacognosist Dermatology 09/19/23 Rey Tay MD 9 [place], [place] 802665 MD Gastroenterology 09/20/23 Rocky Zepeda DO [address] [place] [address] 759565 Physician Gastroenterology 09/20/23 Philip Dumont MD [address] [place] [address] 616095 Physician Ophthalmology 09/22/23 Meredith Carrera PA-C 9 [place], [place] 002405 Assigned Gastroenterology Provider 11/01/23 Neil Kent MD [address] [address] Dermatology 11/02/23 [place] [address] [facility] [place] [address] Neurological Surgery 12/26/23 Audrey Waite PA-C 500 [place] [address] Physician Pharmacognosist Dermatology 02/28/24 Valery Veronica PA-C [address] [place] [address] Physician Pharmacognosist Dermatology 04/10/24 Herminia Hatch MD [address] [place] [address] Assigned Rheumatology Provider 07/02/24 documented as of this encounter
--- OUTSIDE RECORDS SUMMARY | 2024-08-28 18:30 | XMS_ITS | Encounter Summary ---
Author Organization [place] Address [address] [place] [address] Care Team Providers Care Delinquent Tax Collector Name Role Phone Diana Desir [facility] Unavailable Rain Galaviz PA-C Unavailable [phone] Tavia Wyatt MD Unavailable Erica Farrell APRN HADOOP DEVELOPER Unavailable Rich Barrett MD Unavailable [phone] Neil Kent MD Unavailable Diana Desir [facility] Unavailable [phone] Livan Sharif MD Unavailable Catherine Cm MD Unavailable + Valery Veronica-C Unavailable Brea Quinn HEALTH PROMOTION EDUCATOR HADOOP DEVELOPER Unavailable [phone] Brea Quinn HEALTH PROMOTION EDUCATOR HADOOP DEVELOPER Unavailable Jose Francisco Johnson MD Unavailable Sydnie Martinez RN Unavailable Unavailable Alfonso Renteria MD Unavailable [phone] Esha Grimm PA-C Primary Care Provider [phone] Cheng Todd PA-C Unavailable Radha Lomeli APRN HADOOP DEVELOPER Unavailable Jelena David OD Unavailable Pao Joseph RN Unavailable Unavailable Esha Grimm PA-C Unavailable [phone] Valery Veronica PA-C Unavailable Rey Tay MD Unavailable Rocky Zepeda DO Unavailable Phliip Dumont MD Unavailable Meredith Carrera PA-C Unavailable Neil Kent MD Unavailable Juan Pablo Emmanuel MD Unavailable Audrey Waite PA-C Unavailable JeremíasValery damon PA-C Unavailable Herminia Hatch MD Unavailable Encounter Details Date Type Department Care Team (Late st Contact Info) Description 07/06/2023 [facility] [address] [place] [address] Esha Grimm PA-C [id number] [place] [address] Social History Tobacco Use Types Packs/Day [...] Answer Date Recorded PHQ-2 Score 0 06/20/2023 [facility] - Occupational Stress [...] exercise at this level? 30 min 03/10/2023 [place] Depression Scale Answer Date Recorded [place] Depression Score 5 01/14/2021 Last EPDS Self [...] PM CDT Legal Sex Female 4:13 AM HYDROMETALLURGICAL ENGINEER Gender Identity Female 03/02/2021 5:45 PM CDT Sexual Orientation Straight 02/28/2020 12 :51 AM CDT documented as of this encounter Plan of Treatment Upcoming Encounters Date Type Department Care Team (Late st Contact Info) Description 10/23/2024 9:30 AM CDT Office Visit [facility] Neurology Clinics [facility] [address] [place] [address], [address] [place] [address] [place] [address] [place] [address] Johnny Penn MD [address] [place] [address] documented as of this encounter Visit Diagnoses Not on filedocumented in this encounter Additional Health Concerns Infection Onset Date Last Indicated Resolved Time Rule Out COVID-19 12/26/2023 12/26/2023 12/26/2023 9:50 AM CDT Rule Out COVID-19 04/09/2024 04/09/2024 04/10/2024 6:48 PM CDT Assessment Noted Time PHQ-9 Depression Total Score: 4 06/20/20 23 8:40 AM HYDROMETALLURGICAL ENGINEER documented as of this encounter Care Teams Delinquent Tax Collector Relationship Specialty Start Date End Date Esha Grimm PA-C [address] [place] [phone] PCP - General Family Medicine 05/04/23 Diana Desir, [facility] [address] [place], [place] [address] Pharmacist Pharmacist 04/17/21 Rain Galaviz PA-C [address] [place] [address] [address] [place] [address] Physician Instructional Services Specialist Dermatology 04/28/21 Tavia Wyatt MD [address] [place] [address] [address] [place], [place] [phone] Dermatology 07/14/21 Erica Farrell APRN HADOOP DEVELOPER [address] [facility] [address] [place] [address] Nurse Practitioner Cardiovascular Disease 09/09/21 Rich Barrett MD [address] [facility] [address] [place] [address] Physician Ophthalmology 01/21/22 Neil Kent MD 500 [place], [place] 824565 Dermatology 02/24/22 Diana Desir, [facility] 3033 [place] [address] Assigned MTM Pharmacist 04/07/22 Livan Sharif MD [address] [place] [address]29[address] Cardiovascular Disease 05/14/22 Catherine Cm MD [address] [place] [address] Cardiovascular Disease 07/21/22 Valery Veronica, PA-C 909 [place], [place] [address] Physician Instructional Services Specialist Dermatology 07/21/22 Brea Quinn APRN HADOOP DEVELOPER 500 [place] [address] Nurse Practitioner Dermatology 09/21/22 Brea Quinn APRN HADOOP DEVELOPER [address] [facility] 365322 Assigned Surgical Provider 10/09/22 05/01/24 [place] [address] [place] [address] Assigned Musculoskeletal Provider 10/09/22 05/01/24 Sydnie Martinez RN Personal Advocate & Liaison (PAL) Family Medicine 03/28/23 07/31/23 Alfonso Renteria MD [address] [facility] [address] [place] [address] Assigned Neuroscience Provider 04/02/23 Cheng Todd PA-C [address] [place] [address] Assigned PCP 04/30/23 07/15/23 Radha Lomeli APRN HADOOP DEVELOPER [address] [facility] [address] [place] [address] Assigned Heart and Vascular Provider 05/28/23 Jelena David OD [address] [facility] [place] [address] Ophthalmology 06/15/23 Pao Joseph, VJ Personal Advocate & Liaison (PAL) Nurse 08/01/23 11/07/23 Esha Grimm PA-C [address] [place] [address] Assigned PCP 07/16/23 Valery Veronica PA-C [address] [place] [address] Physician Instructional Services Specialist Dermatology 09/19/23 Rey Tay MD [address] [place] [address] Gastroenterology 09/20/23 Rocky Zepeda DO 500 [place] [address] Physician Gastroenterology 09/20/23 Philip Dumont MD 516 [place] [address] Physician Ophthalmology 09/22/23 Meredith Carrera PA-C [address] [place] [address] Assigned Gastroenterology Provider 11/01/23 Neil Kent MD [address] [address] MD Dermatology 11/02/23 [place] [address] [address] Neurological Surgery 12/26/23 Audrey Waite PA-C 500 [place] [address] Physician Instructional Services Specialist Dermatology 02/28/24 Valery Veronica PA-C [address] [place] [address] Physician Instructional Services Specialist Dermatology 04/10/24 Herminia Hatch MD [facility]5 [place], [place] [address] Assigned Rheumatology Provider 07/02/24 documented as of this encounter
--- OUTSIDE RECORDS SUMMARY | 2024-08-28 18:30 | XMS_ITS | Encounter Summary ---
Author Organization [place] Address [address] [place] [address] Care Team Providers Care Retail Chain Store Area Supervisor Name Role Phone Diana Desir [facility] Unavailable Rain Galaviz PA-C Unavailable Tavia Wyatt MD Unavailable Erica Farrell APRN CONVERTER OPERATOR Unavailable Rich Barrett MD Unavailable [phone] Neil Kent MD Unavailable Diana Desir [facility] Unavailable Livan Sharif MD Unavailable Catherine Cm MD Unavailable + Valery Veronica-C Unavailable Brea Quinn MEETING COORDINATOR CONVERTER OPERATOR Unavailable Brea Quinn MEETING COORDINATOR CONVERTER OPERATOR Unavailable Jose Francisco Johnson MD Unavailable Sydnie Martinez RN Unavailable Unavailable Alfonso Renteria MD Unavailable [phone] Esha Grimm PA-C Primary Care Provider Cheng Todd PA-C Unavailable Radha Lomeli APRN CONVERTER OPERATOR Unavailable Jelena David OD Unavailable [phone] Pao Joseph RN Unavailable Unavailable Esha Grimm PA-C Unavailable [phone] Valery Veronica PA-C Unavailable [phone] Rey Tay MD Unavailable Rocky Zepeda DO Unavailable Philip Dumont MD Unavailable Meredith Carrera PA-C Unavailable Neil Kent MD Unavailable Juan Pablo Emmanuel MD Unavailable [phone] Audrey Waite PA-C Unavailable JeremíasValery damon PA-C Unavailable Herminia Hatch MD Unavailable Encounter Details Date Type Department Care Team (Late st Contact Info) Description 06/17/2023 MyC Medical [facility]ice [facility] [address] [facility], [address] [place] [address] Alfonso Renteria MD [address] [facility] [address] [place] [address] Social History Tobacco Use Types [...] 0 06/20/2023 [facility] Health - Occupational Stress Questionnaire [...] exercise at this level? 30 min 03/10/2023 [place] Depression Scale Answer Date Recorded [place] Depression Score 5 01/14/2021 Last EPDS Self [...] PM CDT Legal Sex Female 4:13 AM NAPHTHALENE STILL OPERATOR Gender Identity Female 03/02/2021 5:45 PM CDT Sexual Orientation Straight 02/28/2020 12 :51 AM CDT documented as of this encounter Miscellaneous Notes * Telephone Encounter - Lulu Xie - 06/28/2023 12:08 PM CST Patient calling to follow up on the below [employer] message. Patient continues to have a lot of dizzyness and neck pain. THALENE STILL OPERATOR documented in this encounter Plan of Treatment Upcoming Encounters Date Type Department Care Team (Late st Contact Info) Description 10/23/2024 9:30 AM CDT Office Visit [facility] Neurology [facility] - [address], [address] [place] [address] [place] [address] [place], [place] 5879[address] Johnny Penn MD [address] [place] 9[address]95 documented as of this encounter Visit Diagnoses Not on filedocumented in this encounter Additional Health Concerns Infection Onset Date Last Indicated Resolved Time Rule Out COVID-19 12/26/2023 12/26/2023 12/26/2023 9:50 AM CDT Rule Out COVID-19 04/09/2024 04/09/2024 04/10/2024 6:48 PM CDT Assessment Noted Time PHQ-9 Depression Total Score: 6 05/16/20 9:29 AM NAPHTHALENE STILL OPERATOR documented as of this encounter Care Teams Retail Chain Store Area Supervisor Relationship Specialty Start Date End Date Esha Grimm PA-C [address] [place] [address] PCP - General Family Medicine 05/04/23 Diana Desir, [facility] [address] [place] [address] Pharmacist Pharmacist 04/17/21 Rain Galaviz PA-C [address] [place] [address] [address] [place] [address] Physician Migratory Worker Dermatology 04/28/21 Tavia Wyatt MD [address] [place] [address] [address] [place] [address] Dermatology 07/14/21 Erica Farrell APRN CONVERTER OPERATOR [address] [place], [place] [address] Nurse Practitioner Cardiovascular Disease 09/09/21 Rich Barrett MD 516 [facility] [address] [place], [place] 9[address] Physician Ophthalmology 01/21/22 Neil Kent MD 500 [place], [place] 141135 Dermatology 02/24/22 Diana Desir, [facility] [address] [place], [place] [address]896 Assigned [facility] Pharmacist 04/07/22 Livan Sharif MD [address] [place] [address] Cardiovascular Disease 05/14/22 Catherine Cm MD [address] [place], [place] [address] Cardiovascular Disease 07/21/22 Valery Veronica, PAUcheC [address] [place] [address]14035 Physician Migratory Worker Dermatology 07/21/22 Brea Quinn APRN CONVERTER OPERATOR 500 [place], [place] [address] Nurse Practitioner Dermatology 09/21/22 Brea Quinn APRN CONVERTER OPERATOR [address] [place] [address] [place] [address] Assigned Surgical Provider 10/09/22 05/01/24 [place] [address] [place] [address] Assigned Musculoskeletal Provider 10/09/22 05/01/24 Sydnie Martinez RN Personal Advocate & Liaison (PAL) Family Medicine 03/28/23 07/31/23 Alfonso Renteria MD [address] [facility] 200 [place], [place] 136[address] Assigned Neuroscience Provider 04/02/23 Cheng Todd PA-C [address] [place] [address] [phone] Assigned PCP 04/30/23 07/15/23 Radha Lomeli, ARLENE CONVERTER OPERATOR 6405 [facility] [place], [place] 2635[address] Assigned Heart and Vascular Provider 05/28/23 Jelena David OD [address] [place] [address] Ophthalmology 06/15/23 Pao Joseph, VJ Personal Advocate & Liaison (PAL) Nurse 08/01/23 11/07/23 Esha Grimm PA-C [address] [place] [address] Assigned PCP 07/16/23 Valery Veronica PA-C 909 [place] [address] Physician Migratory Worker Dermatology 09/19/23 Rey Tay MD 9 [place] [address] MD Gastroenterology 09/20/23 Rocky Zepeda DO 500 [place] [address] Physician Gastroenterology 09/20/23 Philip Dumont MD 516 [place], [place] 265[address] Physician Ophthalmology 09/22/23 Meredith Carrera PA-C 9 [place] [address] Assigned Gastroenterology Provider 11/01/23 Neil Kent MD [address] [place] [address] 875580 Dermatology 11/02/23 [place] [address] [facility] [place] [address] Neurological Surgery 12/26/23 Audrey Waite PA-C 500 [place] [address] Physician Migratory Worker Dermatology 02/28/24 Valery Veronica PA-C [address] [place] [address] Physician Migratory Worker Dermatology 04/10/24 Herminia Hatch MD [address] [place] [address] Assigned Rheumatology Provider 07/02/24 documented as of this encounter
--- NOTE | 2024-08-28 18:31 | ED_ITS ---
HPI - General Adult General Chief complaint: Dizziness/Vertigo Stated complaint: dizzy, cloudy vision Time Seen by Provider: 08/28/24 18:31 History of Present Illness HPI narrative: Patient presents to the emergency department complaining of dizziness. Dizziness is described as lightheaded. Dizziness started today. Patient was seen in urgent care today where they did an ekg and patient states they saw a PVC and felt she needed to be seen in the ER. Patient insisted to get an appointment in the clinic and they would not schedule her because of this recommendation. Patient states she was seen in [facility] for this yesterday and everything was normal. 24-year-old young woman presenting to the emergency department with concern of PVC and recommended strongly burden care to present to the emergency department. She is reluctant to have presented here but could not be seen in clinic. Had EKG done in urgent care and a subsequent PVC on what sounds like a rhythm strip. Does have a history of SVT and PVCs. Further concerned though due to family history with early cardiac disease. Is pending placement of a ZIO patch. Has been experiencing rapid heart rate after periods of exercise lately Last night did have transient chest pain and then discomfort in some form continued through most of the night. She admits that anxiety may have been playing a role. Also got a massage yesterday. Wondering if some of this might be related to toxins or neck pain otherwise at least the subtle dizziness or blurring of vision. Admits that she is supposed to wear glasses. When I moving my hands in front of her face she just feels like things are delayed. Says she probably would not have come here though was strongly encouraged to do so and that she is a single mom. Sounds as though does not get quality, regular sleep. 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 Related Data Home Medications ?Medication ?Instructions ?Recorded ?Confirmed omeprazole 40 mg capsule,delayed 40 mg PO DAILY 04/28/22 08/28/24 release lorazepam 0.5 mg tablet 0.5 mg PO DAILY PRN anxiety 03/18/23 08/28/24 metoprolol succinate 25 mg 12.5 mg PO DAILY 10/15/23 08/28/24 tablet,extended release 24 hr paroxetine HCl 40 mg tablet 40 mg PO QAM 10/15/23 08/28/24 ketoconazole 2 % shampoo topical 05/02/24 07/13/24 tretinoin 0.05 % topical cream 1 applic topical QPM 05/02/24 08/28/24 (Retin-A) doxycycline monohydrate 100 mg 100 mg PO BID 08/28/24 08/28/24 capsule Allergies Allergy/AdvReac Type Severity Reaction Status Date / Time vancomycin Allergy Verified 08/28/24 18:27 Review of Systems Status of ROS: Reports: 6 or more systems reviewed and unremarkable except as noted in History and below [facility] Medical History SVT (supraventricular tachycardia) ?I47.10 - Supraventricular tachycardia, unspecified (ICD-10) Social History Smoking Status: Former smoker What tobacco products do you use: cigarettes Smoking quit date/years: <= 15 years ago Do you use any of these nicotine containing products: None and Vaping Products Second hand tobacco smoke exposure: No How often do you have a drink containing alcohol: monthly or less How often do you have six or more drinks on one occasion: Never AUDIT-C Alcohol total score: 1 Non-prescribed substance use: denies use service: No Exam Narrative: Exam Narrative: Pleasant. NAD. Does seem mildly anxious. Here with daughter. Skin is warm and dry. She well-perfused peripherally. No extremity edema. Heart in regular rate and rhythm without murmur rub or gallop. No carotid bruits. There is good carotid upstroke bilaterally. Small scar perhaps centrally in the left TM. Neither is inflamed or distended. Lungs are clear. Cranial nerves 2-12 intact. Do not appreciate nystagmus. Pupils are 3 mm brisk and equal. Normal funduscopic exam. Const: Vital Signs, click to edit/add: Vital Signs - 24 hr 08/28/24 18:19 Temperature 98.2 F Pulse Rate [Right Pulse Oximeter] 76 Respiratory Rate 18 Blood Pressure [Ri ght Upper Arm] 110/65 Pulse Oximetry 98 Oxygen Delivery Me thod Room Air Documenting provider has reviewed patient's vital signs: yes Course Vital Signs Vital signs: Initial Vital Signs Temperature 98.2 F 08/28/24 18:19 Temperature Source Temporal Artery Scan 08/28/24 18:19 Pulse Rate 76 08/28/24 18:19 Pulse Rhythm Regular 08/28/24 18:19 Pulse Strength 3+ Normal 08/28/24 18:19 Respiratory Rate 18 08/28/24 18:19 Blood Pressure 110/65 08/28/24 18:19 Blood Pressure Mean 80 08/28/24 18:19 Blood Pressure Position Sitting 08/28/24 18:19 Pulse Oximetry 98 08/28/24 18:19 Oxygen Delivery Method Room Air 08/28/24 18:19 Vital Signs Temperature 98.2 F 08/28/24 18:19 Pulse Rate 76 08/28/24 18:19 Respiratory Rate 18 08/28/24 18:19 Blood Pressure 110/65 08/28/24 18:19 Pulse Oximetry 98 08/28/24 18:19 Oxygen Delivery Method Room Air 08/28/24 18:19 Temperature 98.2 F 08/28/24 18:19 Pulse Rate 76 08/28/24 18:19 Respiratory Rate 18 08/28/24 18:19 Blood Pressure 110/65 08/28/24 18:19 Pulse Oximetry 98 08/28/24 18:19 Oxygen Delivery Method Room Air 08/28/24 18:19 Medical Decision Making MDM Narrative Medical decision making narrative: I think workup will be of low yield here. Can check labs however per concern so that can report to providers that has done so per request. I would be surprised if there was evidence of cardiac injury. Will check point of care troponin and then she will leave the emergency department pending other less emergent labs perhaps. Would reassess symptoms again after period of good sleep. See patient discharge plan for further discussion I can appreciate why you are concerned. Thankfully your troponin was normal indicating there has been no recent heart injury. I will call you if there are any unusual results in your labs. If you do not hear from me, everything was totally normal. You can review these results online as well. Place the ZIO Patch has planned on arrival. Hopefully this will provide more useful information. Stay well-hydrated. Try to get quality and regular sleep. Practice good sleep hygiene. Turn off screens at least an hour before bed. Take a dose of doxylamine if needed to help with sleep if needed; maybe combine with 3-6 mg of melatonin. Lab Data Lab results reviewed: Yes I reviewed the patient's lab results Labs: Lab Results 08/28/24 Range/Units 19:13 Hgb 11.7 L (12.0-16.0) gm/dL Sodium 135 (135-149) mmol/L Potassium 4.0 (3.6-5.1) mmol/L Chloride 103 (96-114) mmol/L Carbon Dioxide 23 (20-32) mmol/L Anion Gap 9 (7-15) mEq/L BUN 15 (5-24) mg/dL Creatinine 0.6 (0.5-1.5) mg/dL Estimated Creat Clear 135.35 Estimated GFR 128 ml/min Glucose 82 (60-115) mg/dL Calcium 9.2 (8.4-10.6) mg/dL Magnesium 1.8 (1.5-2.6) mg/dL C-Reactive Protein < 0.5 L (0.5-1.0) mg/dL POC Troponin I 0.00 L (0.01-0.04) ng/ml Discharge Plan Discharge Clinical Impression: Premature ventricular contractions (PVCs) (VPCs), Worried well Patient Disposition: Home, Self-Care Condition: Stable Additional Instructions: I can appreciate why you are concerned. Thankfully your troponin was normal indicating there has been no recent heart injury. I will call you if there are any unusual results in your labs. If you do not hear from me, everything was totally normal. You can review these results online as well. Place the ZIO Patch has planned on arrival. Hopefully this will provide more useful information. Stay well-hydrated. Try to get quality and regular sleep. Practice good sleep hygiene. Turn off screens at least an hour before bed. Take a dose of doxylamine if needed to help with sleep if needed; maybe combine with 3-6 mg of melatonin. Prescriptions: No Action tretinoin [Retin-A] 0.05 % cream 1 applic topical QPM ketoconazole 2 % shampoo topical lorazepam 0.5 mg tablet 0.5 mg PO DAILY PRN (Reason: anxiety) omeprazole 40 mg capsule,delayed release(DR/EC) 40 mg PO DAILY Patient Comments: TAKE ONE CAPSULE BY MOUTH EVERY DAY . metoprolol succinate 25 mg tablet extended release 24 hr 12.5 mg PO DAILY paroxetine HCl 40 mg tablet 40 mg PO QAM doxycycline monohydrate 100 mg capsule 100 mg PO BID Follow Up/Referrals: Provider,Not a Local [Primary Care Provider] - Stand Alone Forms: Chefs Feed Info Instructions
--- OUTSIDE RECORDS SUMMARY | 2024-08-28 19:02 | XMS_ITS | Encounter Summary ---
Author Organization [place] Address [address] [place] [address] Care Team Providers Care Forming Machine Tender Name Role Phone Lita Oseguera Unavailable Unavailable Marija Edgar APRN HEALTH AND FITNESS PROFESSOR Primary Care Provider + Chanelle Mccann SOCIAL WORKER MASTERS CNM Unavailab le Kyara De La Fuente RN Unavailable [phone] Marija Edgar APRN HEALTH AND FITNESS PROFESSOR Unavailable [phone] Mynor Broussard MD Unavailable Keisha Dotson MD Unavailable [phone] Stacey Briones SHEEP FARM MANAGER Unavailable [phone] Galo Burrell MD Unavailable Unavailable Lesley Guillermo CHW Unavailable Meredith Bedoya Unavailable Unavailable Cristina Wood Unavailable Diana Desir [facility] Unavailable [phone] Rain Galaviz PA-C Unavailable Summer Lara MD Unavailable Summer Lara MD Unavailable [phone] Summer Lara MD Unavailable [phone] Tavia Wyatt MD Unavailable [phone] Johnny Murillo MD Unavailable [phone] Erica Farrell SOCIAL WORKER MASTERS HEALTH AND FITNESS PROFESSOR Unavailable Vikas Teresita Watson [facility] Unavailable Tavia Wyatt MD Unavailable [phone] Diana Desir [facility] Unavailable [phone] Rcih Barrett MD Unavailable Neil Kent MD Unavailable Roney Story DPM Unavailable [phone] Erica Farrell SOCIAL WORKER MASTERS HEALTH AND FITNESS PROFESSOR Unavailable Diana Desir [facility] Unavailable [phone] Jelena David Unavailable [phone] Galo Burrell MD Unavailable Unavailable Livan Sharif MD Unavailable + Livan Sharif MD Unavailable + Catherine Cm MD Unavailable + Valery Veronica PA-C Unavailable [phone] Catherine Cm MD Unavailable + Johnny Murillo MD Unavailable +[phone] Brea Quinn SOCIAL WORKER MASTERS HEALTH AND FITNESS PROFESSOR Unavailable [phone] Brea Quinn SOCIAL WORKER MASTERS HEALTH AND FITNESS PROFESSOR Unavailable [phone] Jose Francisco Johnson MD Unavailable Livan Sharif MD Unavailable + Catherine Cm MD Unavailable + Sydnie Martinez RN Unavailable Unavailable Alfonso Renteria MD Unavailable [phone] Alfa, Esha M PA-C Primary Care Provider Cheng Todd PA-C Unavailable [phone] Radha Lomeli APRN HEALTH AND FITNESS PROFESSOR Unavailable Jelena David OD Unavailable Pao Joseph RN Unavailable Unavailable Esha Grimm PA-C Unavailable [phone] Valery Veronica PA-C Unavailable [phone] Rey Tay MD Unavailable Rocky Zepeda DO Unavailable Philip Dumont MD Unavailable Meredith Carrera PA-C Unavailable Neil Kent MD Unavailable Juan Pablo Emmanuel MD Unavailable Audrey Waite PA-C Unavailable JeremíasValery damon PA-C Unavailable [phone] Herminia Hatch MD Unavailable Encounter Details Date Type Department Care Team (Late st Contact Info) Description 10/24/2020 My[facility] Medical Advice [address] [address] Marija Edgar APRN HEALTH AND FITNESS PROFESSOR [address] [place] [address] Social History Tobacco Use Types [...] do you attend chur or mormonism services? More than 4 times [...] Answer Date Recorded PHQ-2 Score 3 09/29/2020 [facility] - [...] PM CDT Legal Sex Female 4:13 AM POLYSOMNOGRAPHIC TECH Gender Identity Female 03/02/2021 5:45 PM [...] 11:44 AM CDT Replied to patient via [employer]. Anthony Doe PA-C on 10/27/2020 at 11:54 AM documented in this encounter Plan of Treatment Upcoming Encounters Date Type Department Care Team (Late st Contact Info) Description 10/23/2024 9:30 AM CDT Office Visit [facility] Neurology [facility] [address] [facility] [address], [address] [place] [address] [place] [address] [place] [address] Johnny Penn MD [address] [facility] [place] [address] documented as of this encounter Visit Diagnoses Not on filedocumented in this encounter Additional Health Concerns Infection Onset Date Last Indicated Resolved Time Rule Out COVID-19 11/05/2020 11/05/2020 11/06/2020 1:09 PM CDT Rule Out COVID-19 05/11/2021 05/11/2021 05/13/2021 10:18 AM CDT Rule Out COVID-19 07/13/2021 07/13/2021 07/14/2021 3:04 PM POLYSOMNOGRAPHIC TECH Rule Out COVID-19 07/18/2021 07/18/2021 07/20/2021 1:56 PM POLYSOMNOGRAPHIC TECH COVID-19 07/18/2021 07/18/2021 08/08/2021 11:3 9 PM POLYSOMNOGRAPHIC TECH Rule Out COVID-19 12/18/2021 12/18/2021 12/19/2021 11:34 AM CDT Rule Out COVID-19 02/24/2022 02/24/2022 02/25/2022 1:08 PM CDT Rule Out COVID-19 04/26/2022 04/26/2022 04/26/2022 6:47 AM CDT Rule Out COVID-19 05/17/2022 05/17/2022 05/17/2022 10:20 PM POLYSOMNOGRAPHIC TECH Rule Out COVID-19 06/09/2022 06/09/2022 06/09/2022 9:35 AM POLYSOMNOGRAPHIC TECH COVID-19 06/09/2022 06/09/2022 06/30/2022 11:4 1 PM POLYSOMNOGRAPHIC TECH Rule Out COVID-19 11/10/2022 11/10/2022 11/11/2022 12:17 PM CDT Rule Out COVID-19 03/07/2023 03/07/2023 03/07/2023 1:20 PM CDT Rule Out COVID-19 12/26/2023 12/26/2023 12/26/2023 9:50 AM CDT Rule Out COVID-19 04/09/2024 04/09/2024 04/10/2024 6:48 PM CDT Assessment Noted Time PHQ-9 Depression Total Score: 6 09/30/19 3:25 PM CDT documented as of this encounter Care Teams Forming Machine Tender Relationship Specialty Start Date End Date Marija Edgar APRN HEALTH AND FITNESS PROFESSOR PCP - General Nurse Practitioner 04/30/20 04/14/23 Esha Grimm PA-C [address] [place] [phone] PCP - General Family Medicine 05/04/23 Lita Oseguera Personal Advocate & Liaison (PAL) 02/28/20 03/27/23 Chanelle Mccann APRN CNM [address] [place] [address] [id number] Assigned OBGYN Provider 05/02/2005/09 Kyara De La Fuente, VJ Specialty Inshore Undersea Warfare Officer Neurology 06/04/20 03/05/21 Marija Edgar APRN HEALTH AND FITNESS PROFESSOR Assigned PCP 06/08/20 04/29/23 Mynor Broussard MD [address] [facility] [address] [place] [address] Assigned Surgical Provider 06/01/20 11/28/21 Keisha Dotson MD [address] [place], [place] [phone] Assigned Neuroscience Provider 06/04/20 04/01/23 Stacey Briones, [facility] Lead Inshore Undersea Warfare Officer Primary Care - CC 08/11/2012/30 Galo Burrell MD Assigned Heart and Vascular Provider 10/05/20 04/02/22 Lesley Guillermo, [facility] Community Health Worker 10/23/2012/30 Meredith Bedoya Financial Resource Worker 10/23/20 11/23/20 Cristina Wood Financial Resource Worker 02/09/21 02/09/21 Diana Desir, [facility] [address] [place], [place] [address] Pharmacist Pharmacist 04/17/21 Rain Galaviz PA-C [address] [place] [address] [address] [facility] [place] [id number] Physician Critical Systems Technician Dermatology 04/28/21 Summer Lara MD [address] [facility] [address] [place], [place] [address] Assigned OBGYN Provider 05/10/2105/23 Summer Lara MD [address] [place] [address] [id number] Assigned OBGYN Provider 05/31/21 Summer Lara MD [address] [place] [address] Assigned OBGYN Provider 05/24/2105/30 Tavia Wyatt MD [address] [place] [address] [id number] Dermatology 07/14/21 Johnny Murillo MD [facility] [place] [address] Assigned Musculoskeletal Provider 08/30/21 03/17/22 Erica Farrell APRN [facility] [address] [facility] [address] [place] [address] Nurse Practitioner Cardiovascular Disease 09/09/21 Teresita Bean [facility] [address] [place] [place], [place] [phone] Pharmacist Pharmacist 09/24/21 09/29/21 Tavia Wyatt MD [address] [place], [place] [phone] Assigned Surgical Provider 11/29/21 05/07/22 Diana Desir, [facility] [address] [facility] [place] [address] Assigned MTM Pharmacist 01/02/22 Rich Barrett MD [address] [address] Physician Ophthalmology 01/21/22 Neil Kent MD [address] [place], [place] 819135 Dermatology 02/24/22 [place] [address] [facility] [address] [place] [address] Assigned Musculoskeletal Provider 03/20/22 08/13/22 Erica Farrell APRN HEALTH AND FITNESS PROFESSOR [address] [place] [address] Assigned Heart and Vascular Provider 04/03/22 04/16/22 Diana Desir [facility] [address]33 [place] [address] Assigned MTM Pharmacist 04/07/22 Jelena David OD [address] [facility] [place] [address] Assigned Surgical Provider 05/08/22 10/08/22 Galo Burrell MD Assigned Heart and Vascular Provider 04/17/22 06/11/22 Livan Sharif MD [address] [facility] [address] [place] [address] Cardiovascular Disease 05/14/22 Livan Sharif MD [address], [facility] [address] [place] [address] Assigned Heart and Vascular Provider 06/12/22 07/23/22 Catherine Cm MD [address] [facility] [place] [phone] Cardiovascular Disease 07/21/22 Valery Veronica, PAUcheC [address] [place] [address] [id number] Physician Critical Systems Technician Dermatology 07/21/22 Catherine Cm MD [address] [facility] [place] [id number] Assigned Heart and Vascular Provider 07/24/22 11/05/22 Johnny Murillo MD [facility] [address] Assigned Musculoskeletal Provider 08/14/22 10/08/22 Brea Quinn APRN HEALTH AND FITNESS PROFESSOR [address] [place] [address] [phone] Nurse Practitioner Dermatology 09/21/22 Brea Quinn APRN HEALTH AND FITNESS PROFESSOR [address] [place] [address] [place] 612702 Assigned Surgical Provider 10/09/22 05/01/24 [place] [address] [place] [address] W[place] [id number] Assigned Musculoskeletal Provider 10/09/22 05/01/24 Livan Sharif MD [address], [facility] [address] [place] [address] Assigned Heart and Vascular Provider 11/06/22 11/12/22 Catherine Cm MD [address] [facility] [address] [place] [address] Assigned Heart and Vascular Provider 11/13/22 05/27/23 Sydnie Martinez, RN Personal Advocate & Liaison (PAL) Family Medicine 03/28/23 07/31/23 Alofnso Renteria MD [address] [facility] 200 [place] [address] Assigned Neuroscience Provider 04/02/23 Cheng Todd PA-C [address] [place] [address] [phone] Assigned PCP 04/30/23 07/15/23 Radha Lomeli APRN HEALTH AND FITNESS PROFESSOR [address] [place] [address] Assigned Heart and Vascular Provider 05/28/23 Jelena David OD [facility] [facility] [place] [address] Ophthalmology 06/15/23 Pao Joseph, VJ Personal Advocate & Liaison (PAL) Nurse 08/01/23 11/07/23 Esha Grimm PAUcheC [address] [place] [phone] Assigned PCP 07/16/23 Valery Veronica PA-C 9 [place], [place] 214945 Physician Critical Systems Technician Dermatology 09/19/23 Rey Tay MD 9 [place], [place] 215585 MD Gastroenterology 09/20/23 Rocky Zepeda DO 500 [place], [place] 552335 Physician Gastroenterology 09/20/23 Philip Dumont MD [address] [place] [address] [phone] Physician Ophthalmology 09/22/23 Meredith Carrera PA-C [address] [place], [place] 302075 Assigned Gastroenterology Provider 11/01/23 Neil Kent MD [address] [address] Dermatology 11/02/23 [place] [address] [facility] [place] [address] Neurological Surgery 12/26/23 Audrey Waite PA-C 500 [place] [address] Physician Critical Systems Technician Dermatology 02/28/24 Valery Veronica PA-C [address] [place] [address] Physician Critical Systems Technician Dermatology 04/10/24 Herminia Hatch MD [address] [place] [address] Assigned Rheumatology Provider 07/02/24 documented as of this encounter
--- OUTSIDE RECORDS SUMMARY | 2024-08-28 19:02 | XMS_ITS | Encounter Summary ---
Author Organization [facility] Address [address] [place] [address] Care Team Providers Care Resident Care Assistant Name Role Phone Lita Oseguera Unavailable Unavailable Marija Edgar APRN PREASSEMBLER PRINTED CIRCUIT BOARD Primary Care Provider + Chanelle Mccann APRN CNM Unavailab le Kyara De La Fuente RN Unavailable Marija Edgar APRN PREASSEMBLER PRINTED CIRCUIT BOARD Unavailable [phone] Mynor Broussard MD Unavailable [phone] Keisha Dotson MD Unavailable Galo Burrell MD Unavailable Unavailable Cristina Wood Unavailable Diana Desir [facility] Unavailable Rain Galaviz PA-C Unavailable Summer Lara MD Unavailable [phone] Summer Lara MD Unavailable [phone] Summer Lara MD Unavailable [phone] Tavia Wyatt MD Unavailable Johnny Murillo MD Unavailable Erica Farrell APRN PREASSEMBLER PRINTED CIRCUIT BOARD Unavailable Vikas Teresita Watson [facility] Unavailable Tavia Wyatt MD Unavailable Diana Desir [facility] Unavailable [phone] Rich Barrett MD Unavailable Neil Kent MD Unavailable Roney Story DPM Unavailable [phone] Erica Farrell APRN PREASSEMBLER PRINTED CIRCUIT BOARD Unavailable Diana Desir [facility] Unavailable [phone] Jelena David Unavailable Galo Burrell MD Unavailable Unavailable Livan Sharif MD Unavailable Livan Sharif MD Unavailable + Ctaherine Cm MD Unavailable + Valery Veronica-C Unavailable [phone] Catherine Cm MD Unavailable + Johnny Murillo MD Unavailable [phone] Brea Quinn FORCE ADJUSTMENT SUPERVISOR PREASSEMBLER PRINTED CIRCUIT BOARD Unavailable [phone] Brea Quinn FORCE ADJUSTMENT SUPERVISOR PREASSEMBLER PRINTED CIRCUIT BOARD Unavailable [phone] Jose Francisco Johnson MD Unavailable Livan Sharif MD Unavailable + Catherine Cm MD Unavailable + Sydnie Martinez RN Unavailable Unavailable Alfonso Renteria MD Unavailable [phone] Esha Grimm PA-C Primary Care Provider Cheng Todd PA-C Unavailable Radha Lomeli FORCE ADJUSTMENT SUPERVISOR PREASSEMBLER PRINTED CIRCUIT BOARD Unavailable Jelena David OD Unavailable Pao Joseph RN Unavailable Unavailable Esha Grimm PA-C Unavailable [phone] Valery Veronica PA-C Unavailable [phone] Rey Tay MD Unavailable Rocky Zepeda DO Unavailable Philip Dumont MD Unavailable [phone] Meredith Carrera PA-C Unavailable [phone] Neil Kent MD Unavailable Juan Pablo Emmanuel MD Unavailable [phone] Audrey Waite PA-C Unavailable [phone] JeremíasValery damon PA-C Unavailable Herminia Hatch MD Unavailable Encounter Details Date Type Department Care Team (Late st Contact Info) Description 01/06/2021 Orders Only [facility] - Surgical Specialties Service Line [address] [place] [address] Saurabh Marcial MD [address] [facility] [address] [place] [address] Indication for care in labor [...] you attend chur or oriental orthodox services? More than 4 times per [...] Answer Date Recorded PHQ-2 Score 3 09/29/2020 [facility] [place] of Occupat ional Health - Occupational Stress [...] CDT Legal Sex Female 4:13 AM SYSTEMS INTEGRATOR Gender Identity Female 03/02/2021 5:45 PM CDT [...] Description 10/23/2024 9:30 AM CDT Office Visit [address], [address] [place] [address] [place] [address] [place] [address] Johnny Penn MD [address] [place], [place] [address] documented as of this encounter Results * Asymptomatic COVID-19 Virus (Coronavirus) by PCR (01/09/2021 10:44 AM CDT) COVID-19 Virus PCR to [facility] - Source Nasopharyngeal 01/09/2021 10:45 AM CDT [facility] COVID-19 Virus [facility] to [facility] - Result Test received-See reflex to IDDL test SARS CoV2 (COVID-19) Virus RT-PCR 01/09/2021 6:32 PM CDT [facility] Specimen from nasopharyngeal structure (specimen) 01/09/2021 10:44 AM CDT 01/09/2021 10:45 AM CDT Saurabh Marcial MD LAB - MICRO GENERAL ORDE [place]AR[place] Final Result [facility], [facility] [address] [place] [address], [facility] [address] [place] [address], [facility] [phone] documented in this encounter Visit Diagnoses Diagnosis Indication for care in labor and delivery, antepartum- Primary Unspecified indication for care or intervention related to labor and delivery, antepartum documented in this encounter Additional Health Concerns Infection Onset Date Last Indicated Resolved Time Rule Out COVID-19 05/11/2021 05/11/2021 05/13/2021 10:18 AM CDT Rule Out COVID-19 07/13/2021 07/13/2021 07/14/2021 3:04 PM SYSTEMS INTEGRATOR Rule Out COVID-19 07/18/2021 07/18/2021 07/20/2021 1:56 PM SYSTEMS INTEGRATOR COVID-19 07/18/2021 07/18/2021 08/08/2021 11:3 9 PM SYSTEMS INTEGRATOR Rule Out COVID-19 12/18/2021 12/18/2021 12/19/2021 11:34 AM CDT Rule Out COVID-19 02/24/2022 02/24/2022 02/25/2022 1:08 PM CDT Rule Out COVID-19 04/26/2022 04/26/2022 04/26/2022 6:47 AM CDT Rule Out COVID-19 05/17/2022 05/17/2022 05/17/2022 10:20 PM SYSTEMS INTEGRATOR Rule Out COVID-19 06/09/2022 06/09/2022 06/09/2022 9:35 AM SYSTEMS INTEGRATOR COVID-19 06/09/2022 06/09/2022 06/30/2022 11:4 1 PM SYSTEMS INTEGRATOR Rule Out COVID-19 11/10/2022 11/10/2022 11/11/2022 12:17 PM CDT Rule Out COVID-19 03/07/2023 03/07/2023 03/07/2023 1:20 PM CDT Rule Out COVID-19 12/26/2023 12/26/2023 12/26/2023 9:50 AM CDT Rule Out COVID-19 04/09/2024 04/09/2024 04/10/2024 6:48 PM CDT Assessment Noted Time PHQ-9 Depression Total Score: 6 09/30/19 21 3:25 PM CDT documented as of this encounter Care Teams Resident Care Assistant Relationship Specialty Start Date End Date Marija Edgar APRN CNP PCP - General Nurse Practitioner 04/30/20 04/14/23 Esha Grimm PA-C [address] [place] [address] PCP - General Family Medicine 05/04/23 Lita Oseguera Personal Advocate & Liaison (PAL) 02/28/20 03/27/23 Chanelle Mccann APRN CNM [address] [place] [address] [place] [address] Assigned OBGYN Provider 05/02/2005/09 Kyara De La Fuente, RN Specialty Financial Professional Neurology 06/04/20 03/05/21 Marija Edgar APRN PREASSEMBLER PRINTED CIRCUIT BOARD Assigned PCP 06/08/20 04/29/23 Mynor Broussard MD [address] [facility] [address] [place] [address] Assigned Surgical Provider 06/01/20 11/28/21 Keisha Dotson MD 9 [place] [address] Assigned Neuroscience Provider 06/04/20 04/01/23 Galo Burrell MD Assigned Heart and Vascular Provider 10/05/20 04/02/22 Cristina Wood Financial Resource Worker 02/09/21 02/09/21 Diana Desir [facility] [address] [place] [address] Pharmacist Pharmacist 04/17/21 Rain Galaviz PA-C [address] [place] [address] [address] [place] [address] Physician Escalator Mechanic Dermatology 04/28/21 Summer Lara MD [address] [place] [address] Assigned OBGYN Provider 05/10/2105/23 Summer Lara MD [address] [place] [address] Assigned OBGYN Provider 05/31/21 2 Summer Lara MD [address] [place] [address] Assigned OBGYN Provider 05/24/2105/30 Tavia Wyatt MD [address] [place] [address] Dermatology 07/14/21 Johnny Murillo MD [facility]2 [address] [facility] [address] [place] [address] Assigned Musculoskeletal Provider 08/30/21 03/17/22 Erica Farrell APRN [facility] [address] [facility] [address] [place], [place] [address] Nurse Practitioner Cardiovascular Disease 09/09/21 Teresita Bean [facility] [address] [place], [place] [phone] Pharmacist Pharmacist 09/24/21 09/29/21 Tavia Wyatt MD [address] [place] [address] Assigned Surgical Provider 11/29/21 05/07/22 Diana Desir, [facility] [address] [place] [address] Assigned MTM Pharmacist 01/02/22 Rich Barrett MD 516 [facility], [address] [phone] Physician Ophthalmology 01/21/22 Neil Kent MD [address] [place] [address] Dermatology 02/24/22 Roney Story DPM [address] [facility] [address] [place] [address] Assigned Musculoskeletal Provider 03/20/22 08/13/22 Erica Farrell APRN PREASSEMBLER PRINTED CIRCUIT BOARD [address] [place] [address] Assigned Heart and Vascular Provider 04/03/22 04/16/22 Diana Desir, [facility] [address] [place] [address] Assigned MTM Pharmacist 04/07/22 Jelena David OD [address] [facility] [place] [address] Assigned Surgical Provider 05/08/22 10/08/22 Galo Burrell MD Assigned Heart and Vascular Provider 04/17/22 06/11/22 Livan Sharif MD 6[address] [facility], [facility] [address] [place] [address] Cardiovascular Disease 05/14/22 Livan Sharif MD [address] 25[address] [place] [address]995 Assigned Heart and Vascular Provider 06/12/22 07/23/22 Catherine Cm MD [address] [place] [address] Cardiovascular Disease 07/21/22 Valery Veronica, PA-C [address] [place] [address] 733655 Physician Escalator Mechanic Dermatology 07/21/22 Catherine Cm MD [address] [facility] [address] [address] Assigned Heart and Vascular Provider 07/24/22 11/05/22 Johnny Murillo MD [address] [place] [address] Assigned Musculoskeletal Provider 08/14/22 10/08/22 Brea Quinn APRN PREASSEMBLER PRINTED CIRCUIT BOARD [address] [place] [address] 052125 Nurse Practitioner Dermatology 09/21/22 Brea Quinn APRN PREASSEMBLER PRINTED CIRCUIT BOARD [address] [place] [address] [place] [address] Assigned Surgical Provider 10/09/22 05/01/24 [place] [address] [place] [address] Assigned Musculoskeletal Provider 10/09/22 05/01/24 Livan Sharif MD [address], [facility] [address] [place] [address] Assigned Heart and Vascular Provider 11/06/22 11/12/22 Catherine Cm MD [address] [facility] [address] [place] [address] Assigned Heart and Vascular Provider 11/13/22 05/27/23 Sydnie Martinez RN Personal Advocate & Liaison (PAL) Family Medicine 03/28/23 07/31/23 Alfonso Renteria MD 5775 [facility] 200 [place] [address] Assigned Neuroscience Provider 04/02/23 Cheng Todd PA-C [address] [place] [address] [phone] Assigned PCP 04/30/23 07/15/23 Radha Lomeli APRN PREASSEMBLER PRINTED CIRCUIT BOARD [address] [place] [address] Assigned Heart and Vascular Provider 05/28/23 Jelena David OD [address]305 [facility] [place] [address] Ophthalmology 06/15/23 Pao Joseph RN Personal Advocate & Liaison (PAL) Nurse 08/01/23 11/07/23 Esha Grimm PA-C [address] [place] [address] Assigned PCP 07/16/23 Valery Veronica PA-C [address] [place] [address] Physician Escalator Mechanic Dermatology 09/19/23 Rey Tay MD [address] [place] [address] MD Gastroenterology 09/20/23 Rocky Zepeda DO [address] [place] [address] 247965 Physician Gastroenterology 09/20/23 Philip Dumont MD [address] [place] [address] Physician Ophthalmology 09/22/23 Meredith Carrera PA-C [address] [place] [address] Assigned Gastroenterology Provider 11/01/23 Neil Kent MD [address] [address] Dermatology 11/02/23 [place] [address] [place] 507747 Neurological Surgery 12/26/23 Audrey Waite PA-C [address] [place] [address] 848915 Physician Escalator Mechanic Dermatology 02/28/24 Valery Veronica PA-C [address] [place] [address] Physician Escalator Mechanic Dermatology 04/10/24 Herminia Hatch MD [address] [place] [address] [phone] Assigned Rheumatology Provider 07/02/24 documented as of this encounter
--- OUTSIDE RECORDS SUMMARY | 2024-08-28 19:02 | XMS_ITS | Encounter Summary ---
Author Organization [facility] Address [address] [place] [address] Care Team Providers Care Asset Management Lead Name Role Phone Lita Oseguera Unavailable Unavailable Marija Edgar APRN HSE ADVISOR Primary Care Provider + Chanelle Mccann APRN CNM Unavailab le Kyara De La Fuente RN Unavailable [phone] Marija Edgar APRN HSE ADVISOR Unavailable Mynor Broussard MD Unavailable [phone] Keisha Dotson MD Unavailable [phone] Galo Burrell MD Unavailable Unavailable Cristina Wood Unavailable Diana Desir [facility] Unavailable [phone] Rain Galaviz PA-C Unavailable Summer Lara MD Unavailable [phone] Summer Lara MD Unavailable [phone] Summer Lara MD Unavailable [phone] Tavia Wyatt MD Unavailable Johnny Murillo MD Unavailable Erica Farrell APRN HSE ADVISOR Unavailable Vikas Teresita Watson [facility] Unavailable Tavia Wyatt MD Unavailable Diana Desir [facility] Unavailable [phone] Rich Barrett MD Unavailable Neil Kent MD Unavailable Roney Story DPM Unavailable [phone] Erica Farrell APRN HSE ADVISOR Unavailable Diana Desir [facility] Unavailable [phone] Jelena David Unavailable Galo Burrell MD Unavailable Unavailable Livan Sharif MD Unavailable Livan Sharif MD Unavailable + Catherine Cm MD Unavailable + Valery Veronica-C Unavailable [phone] Catherine Cm MD Unavailable + Johnny Murillo MD Unavailable [phone] Brea Quinn DIE FILER HSE ADVISOR Unavailable [phone] Brea Quinn DIE FILER HSE ADVISOR Unavailable [phone] Jose Francisco Johnson MD Unavailable Livan Sharif MD Unavailable + Catherine Cm MD Unavailable + Sydnie Martinez RN Unavailable Unavailable Alfonso Renteria MD Unavailable [phone] Esha Grimm PA-C Primary Care Provider Cheng Todd PA-C Unavailable Radha Lomeli DIE FILER HSE ADVISOR Unavailable [phone] Jelena David OD Unavailable Pao Joseph RN Unavailable Unavailable Esha Grimm PA-C Unavailable [phone] Valery Veronica PA-C Unavailable [phone] Rey Tay MD Unavailable Rocky Zepeda DO Unavailable Philip Dumont MD Unavailable [phone] Meredith Carrera PA-C Unavailable [phone] Neil Kent MD Unavailable Juan Pablo Emmanuel MD Unavailable [phone] Audrey Waite PA-C Unavailable [phone] Valery Veronica PA-C Unavailable [phone] Herminia Hatch MD Unavailable Encounter Details Date Type Department Care Team (Late st Contact Info) Description 01/02/2021 MyC Medical Advice [address] [address] [place]ierra [place] Social History Tobacco [...] often do you attend [facility] or zoroastrianism services? More than 4 [...] Answer Date Recorded PHQ-2 Score 3 [facility] [...] PM CDT Legal Sex Female 4:13 AM PLASTICS SCIENTIST Gender Identity Female 03/02/2021 5:45 PM [...] CDT Office Visit [facility] Neurology [address], [address] [place] [address] [place] [address] [place] [address] Johnny Penn MD [address] [place], [place] [address] documented as of this encounter Visit Diagnoses Not on filedocumented in this encounter Additional Health Concerns Infection Onset Date Last Indicated Resolved Time Rule Out COVID-19 05/11/2021 05/11/2021 05/13/2021 10:18 AM CDT Rule Out COVID-19 07/13/2021 07/13/2021 07/14/2021 3:04 PM PLASTICS SCIENTIST Rule Out COVID-19 07/18/2021 07/18/2021 07/20/2021 1:56 PM PLASTICS SCIENTIST COVID-19 07/18/2021 07/18/2021 08/08/2021 11:3 9 PM PLASTICS SCIENTIST Rule Out COVID-19 12/18/2021 12/18/2021 12/19/2021 11:34 AM CDT Rule Out COVID-19 02/24/2022 02/24/2022 02/25/2022 1:08 PM CDT Rule Out COVID-19 04/26/2022 04/26/2022 04/26/2022 6:47 AM CDT Rule Out COVID-19 05/17/2022 05/17/2022 05/17/2022 10:20 PM PLASTICS SCIENTIST Rule Out COVID-19 06/09/2022 06/09/2022 06/09/2022 9:35 AM PLASTICS SCIENTIST COVID-19 06/09/2022 06/09/2022 06/30/2022 11:4 1 PM PLASTICS SCIENTIST Rule Out COVID-19 11/10/2022 11/10/2022 11/11/2022 12:17 PM CDT Rule Out COVID-19 03/07/2023 03/07/2023 03/07/2023 1:20 PM CDT Rule Out COVID-19 12/26/2023 12/26/2023 12/26/2023 9:50 AM CDT Rule Out COVID-19 04/09/2024 04/09/2024 04/10/2024 6:48 PM CDT Assessment Noted Time PHQ-9 Depression Total Score: 6 09/30/19 3:25 PM CDT documented as of this encounter Care Teams Asset Management Lead Relationship Specialty Start Date End Date Marija Edgar APRN HSE ADVISOR PCP - General Nurse Practitioner 04/30/20 04/14/23 Esha Grimm PA-C [address] [place] [address] PCP - General Family Medicine 05/04/23 Lita Oseguera Personal Advocate & Liaison (PAL) 02/28/20 03/27/23 Chanelle Mccann APRN CNM 00615 [facility] 200 [place] [address] Assigned OBGYN Provider 05/02/2005/09 Kyara De La Fuente, RN Specialty Strapping Machine Operator Neurology 06/04/20 03/05/21 Marija Edgar APRN HSE ADVISOR Assigned PCP 06/08/20 04/29/23 Mynor Broussard MD 6363 [facility] 500 [place], [place] 895425 Assigned Surgical Provider 06/01/20 11/28/21 Keisha Dotson MD 9[address] [place], [place] 8114[address] Assigned Neuroscience Provider 06/04/20 04/01/23 Galo Burrell MD Assigned Heart and Vascular Provider 10/05/20 04/02/22 Cristina Wood Financial Resource Worker 02/09/21 02/09/21 Diana Desir, [facility] [address] [place] [address] Pharmacist Pharmacist 04/17/21 Rain Galaviz PA-C [address] [place] [address] [place] [address] Physician Data Analytics Analyst Dermatology 04/28/21 Summer Lara MD [address] [place] [address] 666054 Assigned OBGYN Provider 05/10/2105/23 Summer Lara MD [address] [place] [address] 533624 Assigned OBGYN Provider 05/31/21 Summer Lara MD [address] [place] [address] 015784 Assigned OBGYN Provider 05/24/2105/30 Tavia Wyatt MD [address] [place] [address] 954434 Dermatology 07/14/21 Johnny Murillo MD [address] [place], [place] 211724 Assigned Musculoskeletal Provider 08/30/21 03/17/22 Erica Farrell APRN HSE ADVISOR 6405 [facility] [address] [place], [place] 3347[address] Nurse Practitioner Cardiovascular Disease 09/09/21 Teresita Bean [facility] [address] [place] [phone] Pharmacist Pharmacist 09/24/21 09/29/21 Tavia Wyatt MD [address] [place] [address] Assigned Surgical Provider 11/29/21 05/07/22 Diana Desir [facility] [address] [place] [address] Assigned MTM Pharmacist 01/02/22 Rich Barrett MD [address] [address] Physician Ophthalmology 01/21/22 Neil Kent MD 500 [place], [place] 276875 Dermatology 02/24/22 Roney Story DPM [address] [facility] [address] [place], [place] 9870[address] Assigned Musculoskeletal Provider 03/20/22 08/13/22 Erica Farrell APRN HSE ADVISOR 1700 [place] [address] Assigned Heart and Vascular Provider 04/03/22 04/16/22 Diana Desir [facility] 30[address] [place] [address] Assigned MTM Pharmacist 04/07/22 Jelena David OD 3305 [facility] [place] [address] Assigned Surgical Provider 05/08/22 10/08/22 Galo Burrell MD Assigned Heart and Vascular Provider 04/17/22 06/11/22 Livan Sharif MD [address] [place] [address] Cardiovascular Disease 05/14/22 Livan Sharif MD [address], [address] [address] [place] [address] Assigned Heart and Vascular Provider 06/12/22 07/23/22 Catherine Cm MD [address] [place] [address] [place] [address] Cardiovascular Disease 07/21/22 Valery Veronica, PAUcheC 9[address] [place], [place] 716465 Physician Data Analytics Analyst Dermatology 07/21/22 Catherine Cm MD [address] [place] [address] [place], [place] 280575 Assigned Heart and Vascular Provider 07/24/22 11/05/22 Johnny Murillo MD [address] [facility] [address] [place] [address] 249614 Assigned Musculoskeletal Provider 08/14/22 10/08/22 Brea Quinn APRN HSE ADVISOR 500 [place] [address] Nurse Practitioner Dermatology 09/21/22 Brea Quinn APRN HSE ADVISOR 6401 [place] [address] Assigned Surgical Provider 10/09/22 05/01/24 [place] [address] [facility] [address] [place] [address] Assigned Musculoskeletal Provider 10/09/22 05/01/24 Livan Sharif MD [address] [facility] [address] [place], [place] 528275 Assigned Heart and Vascular Provider 11/06/22 11/12/22 Catherine Cm MD [address] [facility] [address] [place] [address] Assigned Heart and Vascular Provider 11/13/22 05/27/23 Sydnie Martinez RN Personal Advocate & Liaison (PAL) Family Medicine 03/28/23 07/31/23 Alfonso Renteria MD 5775 [facility] 200 [place], [place] 848226 Assigned Neuroscience Provider 04/02/23 Cheng Todd PA-C [address] [place] [address] Assigned PCP 04/30/23 07/15/23 Radha Lomeli APRN HSE ADVISOR [address] [facility] [address] [place], [place] 7[address]05 Assigned Heart and Vascular Provider 05/28/23 Jelena David OD [address] [facility] [place] [address] MD Ophthalmology 06/15/23 Pao Joseph, VJ Personal Advocate & Liaison (PAL) Nurse 08/01/23 11/07/23 Esha Grimm PA-C [address] [place] [address] Assigned PCP 07/16/23 Valery Veronica PA-C [address] [place] [address] 469925 Physician Data Analytics Analyst Dermatology 09/19/23 Rey Tay MD [address] [place] [address] 409065 Gastroenterology 09/20/23 Rocky Zepeda DO [address] [place] [address] 056835 Physician Gastroenterology 09/20/23 Philip Dumont MD [address] [place] [address] 674755 Physician Ophthalmology 09/22/23 Meredith Carrera PA-C [address] [place] [address] Assigned Gastroenterology Provider 11/01/23 Neil Kent MD [address] [place] [address] Dermatology 11/02/23 [place] [address] [facility] [place] [address] Neurological Surgery 12/26/23 Audrey Waite PA-C 500 [place] [address] Physician Data Analytics Analyst Dermatology 02/28/24 Valery Veronica PA-C 513475 [address], [place] [address] Physician Data Analytics Analyst Dermatology 04/10/24 Herminia Hatch MD [facility]5 [place] [address] Assigned Rheumatology Provider 07/02/24 documented as of this encounter
--- OUTSIDE RECORDS SUMMARY | 2024-08-28 19:02 | XMS_ITS | Encounter Summary ---
Author Organization [facility] Address [address] [place] [address] Care Team Providers Care Wallpaper Hanger Helper Name Role Phone Diana Desir [facility] Unavailable [phone] Rain Galaviz PA-C Unavailable Tavia Wyatt MD Unavailable Erica Farrell APRN SOCIAL WORKER AIDE Unavailable Rich Barrett MD Unavailable [phone] Neil Kent MD Unavailable Diana Desir [facility] Unavailable [phone] Livan Sharif MD Unavailable Catherine Cm MD Unavailable + Valery Veronica PA-C Unavailable [phone] Brea Quinn SMALL PARTS ASSEMBLER SOCIAL WORKER AIDE Unavailable Brea Quinn SMALL PARTS ASSEMBLER SOCIAL WORKER AIDE Unavailable Jose Francisco Johnson MD Unavailable Alfonso Renteria MD Unavailable [phone] Esha Grimm PA-C Primary Care Provider Lomeli, Radha E SMALL PARTS ASSEMBLER SOCIAL WORKER AIDE Unavailable [phone] Jelena David OD Unavailable Esha Grimm PA-C Unavailable Valery Veronica PA-C Unavailable [phone] Rey Tay MD Unavailable Rocky Zepeda DO Unavailable Philip Dumont MD Unavailable Meredith Carrera PA-C Unavailable [phone] Neil Kent MD Unavailable Juan Pablo Emmanuel MD Unavailable Audrey Waite PA-C Unavailable [phone] Valery Veronica PA-C Unavailable [phone] Herminia Hatch MD Unavailable Encounter Details Date Type Department Care Team (Late st Contact Info) Description 04/24/2024 [facility] Medical Advice [facility] [address] [facility] [address] [place] [address] Radha Lomeli, SMALL PARTS ASSEMBLER SOCIAL WORKER AIDE [address] [place], [place] [address] Social History Tobacco Use Types Packs/Day Years [...] week 03/28/2024 How often do you attend [facility] or sabian[facility] services? 1 to 4 times [...] 02/07/2024 [facility] [...] exercise at this level? 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 documented in this encounter Plan of Treatment Upcoming Encounters Date Type Department Care Team (Late st Contact Info) Description 10/23/2024 9:30 AM CDT Office Visit [facility] [address], [address] [place] [address] [place] [address] [place], [place] [address] Johnny Penn MD [address] [place] [id number] documented as of this encounter Visit Diagnoses Not on filedocumented in this encounter Additional Health Concerns Assessment Noted Time PHQ-9 Depression Total Score: 3 02/07/20 24 9:33 AM CDT documented as of this encounter Care Teams Wallpaper Hanger Helper Relationship Specialty Start Date End Date Esha Grimm PA-C [address] [place] [phone] PCP - General Family Medicine 05/04/23 [facility] [address] [place], [place] [address] Pharmacist Pharmacist 04/17/21 Rain Galaviz PA-C [address] [place] [address] [address] [place] [address] Physician Management Intern Dermatology 04/28/21 Tavia Wyatt MD [address] [place] [address] [address] [place] [address] Dermatology 07/14/21 Erica Farrell APRN SOCIAL WORKER AIDE [address] [place] [address] Nurse Practitioner Cardiovascular Disease 09/09/21 Rich Barrett MD [address] [address] Physician Ophthalmology 01/21/22 Neil Kent MD 500 [place], [place] [address] Dermatology 02/24/22 Diana Desir, [facility] [address] [place] [address] Assigned MTM Pharmacist 04/07/22 Livan Sharif MD [address] [facility]00 [place] MD [address] Cardiovascular Disease 05/14/22 Catherine Cm MD [address] [facility] [place] [address] Cardiovascular Disease 07/21/22 Valery Veronica, PA-C [address] [place], [place] [address] Physician Management Intern Dermatology 07/21/22 Brea Quinn APRN SOCIAL WORKER AIDE 500 [place] [address] Nurse Practitioner Dermatology 09/21/22 Brea Quinn APRN SOCIAL WORKER AIDE [address] [facility] [place] [id number] Assigned Surgical Provider 10/09/22 05/01/24 [place] [address] [place] [address] Assigned Musculoskeletal Provider 10/09/22 05/01/24 Alfonso Renteria MD [address] [facility] [address] [place] [address] Assigned Neuroscience Provider 04/02/23 Radha Lomeli APRN SOCIAL WORKER AIDE [address] [facility] [address] [place] [address] Assigned Heart and Vascular Provider 05/28/23 Jelena David OD [address] [facility] [address] Ophthalmology 06/15/23 Esha Grimm PA-C [address] [place] [phone] Assigned PCP 07/16/23 Valery Veronica PA-C [address] [place] [address] 375365 Physician Management Intern Dermatology 09/19/23 Rey Tay MD 9 [place], [place] [address] Gastroenterology 09/20/23 Rocky Zepeda DO [address] [place] [address]3905 Physician Gastroenterology 09/20/23 Philip Dumont MD [address] [place] [address] 244945 Physician Ophthalmology 09/22/23 Meredith Carrera PA-C 9[address] [place] [address] Assigned Gastroenterology Provider 11/01/23 Neil Kent MD [address] [place] [address] Dermatology 11/02/23 [place] [address] [place] [address] [address] Neurological Surgery 12/26/23 Audrey Waite PA-C 500 [place] [address] Physician Management Intern Dermatology 02/28/24 Valery Veronica PA-C [address] [place] [address] Physician Management Intern Dermatology 04/10/24 Herminia Hatch MD [facility]5 [place] [address] Assigned Rheumatology Provider 07/02/24 documented as of this encounter
--- OUTSIDE RECORDS SUMMARY | 2024-08-28 19:02 | XMS_ITS | Encounter Summary ---
Author Organization [facility] Address [address] [place] [address] Care Team Providers Care Diesel Mechanic Name Role Phone Lita Oseguera Unavailable Unavailable Marija Edgar APRN STATION JAILER Primary Care Provider + Chanelle Mccann MECHANICAL INSULATOR CNM Unavailab le Kyara DeL a Fuente RN Unavailable [phone] Marija Edgar APRN STATION JAILER Unavailable Mynro Broussrad MD Unavailable [phone] Keisha Dotson MD Unavailable Stacey Briones TERRITORY SALES CONSULTANT Unavailable Mary Mejia Unavailable Unavailable Galo Burrell MD Unavailable Unavailable Cristina Wood Unavailable Lesley Guillermo CHW Unavailable [phone] Meredith Bedoya Unavailable Unavailable Cristina Wood Unavailable Diana Desir [facility] Unavailable Rain Galaviz PA-C Unavailable [phone] Summer Lara MD Unavailable [phone] Summer Lara MD Unavailable [phone] Summer Lara MD Unavailable [phone] Tavia Wyatt MD Unavailable [phone] Johnny Murillo MD Unavailable [phone] Erica Farrell APRN STATION JAILER Unavailable Teresita Bean [facility] Unavailable Tavia Wyatt MD Unavailable [phone] Diana [place] [facility] Unavailable [phone] Rich Barrett MD Unavailable Neil Kent MD Unavailable Roney Story DPM Unavailable [phone] Erica Farrell MECHANICAL INSULATOR STATION JAILER Unavailable Diana Desir [facility] Unavailable [phone] Davidmao Garcia Unavailable Galo Burrell MD Unavailable Unavailable Livan Sharif MD Unavailable + Livan Sharif MD Unavailable + Catherine Cm MD Unavailable + Valery Veronica PA-C Unavailable + [phone] Catherine Cm MD Unavailable + Johnny Murillo MD Unavailable +[phone] Brea Quinn MECHANICAL INSULATOR STATION JAILER Unavailable +[phone] Brea Quinn MECHANICAL INSULATOR STATION JAILER Unavailable [phone] Jose Francisco Johnson MD Unavailable Livan Sharif MD Unavailable + Catherine Cm MD Unavailable + Sydnie Martinez RN Unavailable Unavailable Alfonso Renteria MD Unavailable [phone] Esha Grimm PA-C Primary Care Provider [phone] Cheng Todd PA-C Unavailable Radha Lomeli APRN STATION JAILER Unavailable Jelena David OD Unavailable Pao Joseph RN Unavailable Unavailable Esha Grimm PA-C Unavailable [phone] Valery Veronica PA-C Unavailable [phone] Rey Tay MD Unavailable Rocky Zepeda DO Unavailable Philip Dumont MD Unavailable Meredith Carrera-C Unavailable Neil Kent MD Unavailable Juan Pablo Emmanuel MD Unavailable [phone] Audrey Waite PA-C Unavailable Valery Veronica-C Unavailable Herminia Hatch MD Unavailable Encounter Details Date Type Department Care Team (Late st Contact Info) Description 10/02/2020 [facility] Medical Advice [facility] Care Coordination [facility] [address] [place] [phone] Stacey Briones, [facility] Social History Tobacco Use Types [...] Answer Date Recorded PHQ-2 Score 3 09/29/2020 [facility] - Occupational Stress [...] PM CDT Legal Sex Female 4:13 AM CENTER CONSULTANT Gender Identity Female 03/02/2021 5:45 PM [...] [facility] [place] [address] [facility], [address] [place], [place] [phone] [place] [address] [place], [place] [address] Johnny Penn MD [address] [place], [place] [id number] documented as of this encounter Visit Diagnoses Not on filedocumented in this encounter Additional Health Concerns Infection Onset Date Last Indicated Resolved Time Rule Out COVID-19 11/05/2020 11/05/2020 11/06/2020 1:09 PM CDT Rule Out COVID-19 05/11/2021 05/11/2021 05/13/2021 10:18 AM CDT Rule Out COVID-19 07/13/2021 07/13/2021 07/14/2021 3:04 PM CENTER CONSULTANT Rule Out COVID-19 07/18/2021 07/18/2021 07/20/2021 1:56 PM CENTER CONSULTANT COVID-19 07/18/2021 07/18/2021 08/08/2021 11:3 9 PM CENTER CONSULTANT Rule Out COVID-19 12/18/2021 12/18/2021 12/19/2021 11:34 AM CDT Rule Out COVID-19 02/24/2022 02/24/2022 02/25/2022 1:08 PM CDT Rule Out COVID-19 04/26/2022 04/26/2022 04/26/2022 6:47 AM CDT Rule Out COVID-19 05/17/2022 05/17/2022 05/17/2022 10:20 PM CENTER CONSULTANT Rule Out COVID-19 06/09/2022 06/09/2022 06/09/2022 9:35 AM CENTER CONSULTANT COVID-19 06/09/2022 06/09/2022 06/30/2022 11:4 1 PM CENTER CONSULTANT Rule Out COVID-19 11/10/2022 11/10/2022 11/11/2022 12:17 PM CDT Rule Out COVID-19 03/07/2023 03/07/2023 03/07/2023 1:20 PM CDT Rule Out COVID-19 12/26/2023 12/26/2023 12/26/2023 9:50 AM CDT Rule Out COVID-19 04/09/2024 04/09/2024 04/10/2024 6:48 PM CDT Assessment Noted Time PHQ-9 Depression Total Score: 6 09/30/19 3:25 PM CDT documented as of this encounter Care Teams Diesel Mechanic Relationship Specialty Start Date End Date Marija Edgar APRN STATION JAILER PCP - General Nurse Practitioner 04/30/20 04/14/23 Esha Grimm PA-C [address] [place] [phone] PCP - General Family Medicine 05/04/23 Lita Oseguera Personal Advocate & Liaison (PAL) 02/28/20 03/27/23 Chanelle Mccann APRN CNM [address] [facility] [address] [place] [address] Assigned OBGYN Provider 05/02/2005/09 Kyara De La Fuente, RN Specialty Rod Pointer Neurology 06/04/20 03/05/21 Marija Edgar APRN STATION JAILER Assigned PCP 06/08/20 04/29/23 Mynor Broussard MD [address] [facility] 500 [place] [address] Assigned Surgical Provider 06/01/20 11/28/21 Keisha Dotson MD 909 [place] [address] Assigned Neuroscience Provider 06/04/20 04/01/23 Stacey Briones, [facility] Lead Rod Pointer Primary Care - CC 08/11/2012/30 Mary Mejia Financial Resource Worker 09/02/20 10/06/20 Galo Burrell MD Assigned Heart and Vascular Provider 10/05/20 04/02/22 Cristina Wood Financial Resource Worker 10/07/20 10/14/20 Lesley Guillermo, [facility] Community Health Worker 10/23/2012/30 Meredith Bedoya Financial Resource Worker 10/23/20 11/23/20 Cristina Wood Financial Resource Worker 02/09/21 02/09/21 Diana Desir, [facility] [address] [place], [place] [address] Pharmacist Pharmacist 04/17/21 Rain Galaviz PA-C [address] [place] [address] [address] [facility] [place] [address] Physician Business Performance Advisor Dermatology 04/28/21 Summer Lara MD [address] [place] [address] [phone] Assigned OBGYN Provider 05/10/2105/23 Summer Lara MD [address] [place] [address] [phone] Assigned OBGYN Provider 05/31/21 2 Summer Lara MD [address] [place] [address] 000474 Assigned OBGYN Provider 05/24/2105/30 Tavia Wyatt MD [address] [place] [address] Dermatology 07/14/21 Johnny Murillo MD [facility] [address] 271164 Assigned Musculoskeletal Provider 08/30/21 03/17/22 Erica Farrell APRN STATION JAILER [address] [facility] [address] [place], [place] 79[address] Nurse Practitioner Cardiovascular Disease 09/09/21 Teresita Bean [facility] [address] [place], [place] [phone] Pharmacist Pharmacist 09/24/21 09/29/21 Tavia Wyatt MD [address] [place] [address] Assigned Surgical Provider 11/29/21 05/07/22 Diana Desir, [facility] [address] [place], [place] 16[address]36 Assigned MTM Pharmacist 01/02/22 Rich Barrett MD [address] [address] Physician Ophthalmology 01/21/22 Neil Kent MD 500 [place] [address] Dermatology 02/24/22 Roney Story DPM [address] [facility] [address] [place] [address] Assigned Musculoskeletal Provider 03/20/22 08/13/22 Erica Farrell APRN STATION JAILER 1700 [place] [address] Assigned Heart and Vascular Provider 04/03/22 04/16/22 [facility] [address] [place] [address] Assigned MTM Pharmacist 04/07/22 Jelena David OD [address] [place] [address] Assigned Surgical Provider 05/08/22 10/08/22 Galo Burrell MD Assigned Heart and Vascular Provider 04/17/22 06/11/22 Livan Sharif MD [address] [place] [address] Cardiovascular Disease 05/14/22 Livan Sharif MD [address] [place] [address] Assigned Heart and Vascular Provider 06/12/22 07/23/22 Catherine Cm MD [address] [place] [address] Cardiovascular Disease 07/21/22 Valery Veronica PA-C [address] [place] [address] [phone] Physician Business Performance Advisor Dermatology 07/21/22 Catherine Cm MD [address] [facility] [place] 579625 Assigned Heart and Vascular Provider 07/24/22 11/05/22 Johnny Murillo MD [address] [place] [address] [phone] Assigned Musculoskeletal Provider 08/14/22 10/08/22 Brea Quinn APRN STATION JAILER [address] [place] [address] [phone] Nurse Practitioner Dermatology 09/21/22 Brea Quinn APRN STATION JAILER [address] [place] [address] [place] 546312 Assigned Surgical Provider 10/09/22 05/01/24 [place] [address] [place] [address] Assigned Musculoskeletal Provider 10/09/22 05/01/24 Livan Sharif MD [address], [facility] [address] [place] 278385 Assigned Heart and Vascular Provider 11/06/22 11/12/22 Catherine Cm MD [address] [place] [address] Assigned Heart and Vascular Provider 11/13/22 05/27/23 Sydnie Martinez RN Personal Advocate & Liaison (PAL) Family Medicine 03/28/23 07/31/23 Alfonso Renteria MD [address] [facility] [address] [place], [place] [address] Assigned Neuroscience Provider 04/02/23 Cheng Todd PA-C [address] [place] [address] [phone] Assigned PCP 04/30/23 07/15/23 Radha Lomeli APRN STATION JAILER [address] [place] [id number] Assigned Heart and Vascular Provider 05/28/23 Jelena David OD [address] [place] [address] Ophthalmology 06/15/23 Pao Joseph, VJ Personal Advocate & Liaison (PAL) Nurse 08/01/23 11/07/23 Esha Grimm PA-C [address] [place] [phone] Assigned PCP 07/16/23 Valery Veronica PA-C [address] [place], [place] 2[address] Physician Business Performance Advisor Dermatology 09/19/23 Rey Tay MD [address] [place], [place] 149135 MD Gastroenterology 09/20/23 Rocky Zepeda DO 500 [place] [address] Physician Gastroenterology 09/20/23 Philip Dumont MD 516 [place], [place] 4[address] Physician Ophthalmology 09/22/23 Meredith Carrera PA-C 9 [place] [address] Assigned Gastroenterology Provider 11/01/23 Neil Kent MD [address] [place] [address] [phone] Dermatology 11/02/23 [place] [address] 140327 Neurological Surgery 12/26/23 Audrey Waite PA-C 500 [place] [address] Physician Business Performance Advisor Dermatology 02/28/24 Valery Veronica PA-C 180255 [place], [place] [address] Physician Business Performance Advisor Dermatology 04/10/24 Herminia Hatch MD [facility]5 [place] [address] Assigned Rheumatology Provider 07/02/24 documented as of this encounter
--- OUTSIDE RECORDS SUMMARY | 2024-08-28 19:02 | XMS_ITS | Clinical Summary ---
Author Organization [facility] Address [address] [place] [id number] Care Team Providers Care Bucket Hooker Name Role Phone Diana Desir [facility] Unavailable [phone] Rain Galaviz PAUcheC Unavailable [phone] Tavia Wyatt MD Unavailable Erica Farrell LUMBER TRIMMER VINYL FLOORING INSTALLER Unavailable Rich Barrett MD Unavailable [phone] Neil Kent MD Unavailable Kendrick Desirelle Stanislav [facility] Unavailable Livan Sharif MD Unavailable Catherine Cm MD Unavailable + Valery Veronica-C Unavailable [phone] Brea Quinn LUMBER TRIMMER VINYL FLOORING INSTALLER Unavailable Alfonso Renteria MD Unavailable [phone] Esha GrimmC Primary Care Provider [phone] Radha Lomeli LUMBER TRIMMER VINYL FLOORING INSTALLER Unavailable Jelena David OD Unavailable Alfa, Esha M PA-C Unavailable [phone] Valery Veronica PA-C Unavailable Rey Tay MD Unavailable Duane Rockyanne STEVENS Unavailable Philip Dumont MD Unavailable [phone] Meredith Carrera PA-C Unavailable Neil Kent MD Unavailable Juan Pablo Emmanuel MD Unavailable [phone] Audrey Waite PA-C Unavailable [phone] Valery Veronica PA-C Unavailable Herminia Hatch MD [...] available in ED consider consultation with ED Clinical Lab Scientist. Relevant Medical History (at time Care Plan [...] initiation of Care Plan: 11 Total [facility] Hospital Admissions in 12 months prior to initiation of Care Plan: 0 (she has technically had 2 admissions due to related issues with OBGYN) Expected home rescue plan: Metoprolol 12.5mg PRN PCP: Marija Edgar APRN CNP - Family Medicine - [facility] Specialists: Dr. Galo Burrell - Cardiology - [facility] [place] Dr. Keisha Dotson - Neurology - [facility] Epilepsy Care Care Coordination: Has worked with Community Health Worker in past - ARACELIS Parker, Clinical Care Coordination - [facility] ([place], [place] and [place]) - Follow up plan after an ED visit: Marija Edgar APRN CNP - [facility] Medicine - [facility] Initiated: 2020 Problem Noted Date Diagnosed Date Other ventricular tachycardia 05/08/2024 Paroxysmal supraventricular tachycardia 08/28/19 SVT (supraventricular tachycardia) 08/28/2021 Encounter for pharmacogenetic testing 04/17/2021 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 (04/17/2021): 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 KALYN (generalized anxiety disorder) 09/29/2020 Right ureteral stone 05/27/2020 Overview (05/27/2020): Added automatically from request for surgery [id number] Left ureteral stone 05/27/2020 Overview (05/27/2020): Added automatically from request for surgery [id number] Head ache 02/18/2020 Seizure 05/02/2019 Depressed 05/02/2019 Anxiety 05/02/2019 Tobacco abuse counseling 05/02/2019 Psoriasis 05/02/2019 Resolved Problems Problem Noted Date Diagnosed Date Resolved Date Neck pain 08/25/2022 06/29/2024 Lower back pain 08/25/2022 08/17/2023 Term 01/13/2021 10/11/2022 Encounter for triage in patient 12/09/2020 04/18/2023 Asthma 06/04/2020 02/07/2024 Encounters Date Type Department Care Team Description 08/27/2024 9:06 PM DISBURSING AGENT - 08/27/2024 10:09 PM DISBURSING AGENT Emergency [facility] [address] [place] [address] Fady Vega MD Palpitations Discharge Disposition: Home or Self Care 08/27/2024 Travel 08/16/2024 10:40 AM DISBURSING AGENT Virtual Visit [address] [place] [phone] Fabiano Correa NP Palpitations (Primary Dx) 08/16/2024 Orders Only (auto-released) [address] [place] [phone] Fabiano Correa NP Palpitations 08/06/2024 Travel 08/03/2024 2:45 PM DISBURSING AGENT Office Visit [facility] [address] [place] [phone] Jaron Hager PA-C Abdominal discomfort (Primary Dx); Chest discomfort; Screen for STD (sexually transmitted disease) 08/03/2024 Travel 07/27/2024 5:10 PM DISBURSING AGENT Office Visit [facility] [id number] [place] [phone] Amaris Pascal PA-C Chest tightness (Primary Dx) 07/27/2024 Travel 07/17/2024 12:30 PM DISBURSING AGENT E-Visit [facility] [address] [place] [phone] Esha Grimm PA-C Bacterial vaginosis (Primary Dx) 07/16/2024 MyC Medical Advice [address] [phone] Esha Grimm PA-C Patient Request for Note/Letter; Medicatio... 07/12/2024 Telephone [facility] [address] [phone] Johnny Penn MD Appointment 06/21/2024 4:30 PM DISBURSING AGENT Lab [facility] [address] [place] [phone] Vaginal discharge; Screen for STD (sexually transmitted disease) 06/21/2024 Travel 06/21/2024 MyC Medical Advice [address] [phone] Antonella Eldridge RN 06/21/2024 PRE VISIT [facility] [address], [address] [place] [phone] Johnny Penn MD Previsit 06/20/2024 MyC Medical Advice [facility] [address] [place] [phone] Carley Myles, VJ 06/20/[address] [phone] [place], Brea P, LUMBER TRIMMER VINYL FLOORING INSTALLER Refill Request (Tacrolimus 0.1% ointment & Triamcinolone 0.1% ointment) 06/20/2024 Telephone [facility] [address] [facility] [address] [place] [phone] Radha Lomeli, ARLENE VINYL FLOORING INSTALLER Call Back 06/08/2024 Telephone [facility] [address] [place] [phone] Esha Grimm PA-C Medication Question 06/06/2024 Orders Only [facility] [address] [place] [phone] Outside, Provider 06/05/2024 5:15 PM DISBURSING AGENT Office Visit [facility] [place] [address] [place] [phone] Jaron Hager PA-C Lymphadenopathy (Primary Dx); Chest pain, unspecified type 06/05/2024 Travel 06/05/2024 MyC Medical Advice [address] [phone] Herminia Hatch MD 05/31/2024 4:30 PM DISBURSING AGENT Lab [facility] [place] [phone] Psoriatic arthritis (H); Tuberculosis screening; Encounter for hepatitis C screening test for low risk patient 05/31/2024 3:30 PM DISBURSING AGENT Office Visit [address] [phone] Audrey Díaz PA-C Khan, Waseem, MD Psoriatic [...] Answer Date Recorded PHQ-2 Score 1 02/07/2024 [facility] [employer] - Occupational Stress [...] exercise at this level? 20 min 05/07/2024 [place] Depression Scale Answer Date Recorded [place] Depression Score 5 01/14/2021 Last EPDS Self [...] PM CDT Legal Sex Female 4:13 AM DISBURSING AGENT Gender Identity Female 03/02/2021 5:45 PM CDT Sexual Orientation Straight 02/28/2020 12 :51 AM CDT Last Filed Vital Signs Vital Sign Reading Time Taken Comments Blood Pressure 112/61 08/27/2024 10:08 PM DISBURSING AGENT Pulse 82 08/27/2024 10:08 PM DISBURSING AGENT Temperature 36.7 C (98.1 F) 08/27/2024 8:38 PM DISBURSING AGENT Respiratory Rate 18 08/27/2024 8:38 PM DISBURSING AGENT Oxygen Saturation 98% 08/27/2024 10: 08 PM DISBURSING AGENT Inhaled Oxygen Concentration - - Weight 93.4 kg (205 lb 14.6 oz) 08/27/2024 8:38 PM DISBURSING AGENT Height 167.6 cm (5' 6) 08/27/2024 8:38 PM DISBURSING AGENT Body Mass Index 33.23 08/27/2024 8:38 PM DISBURSING AGENT Plan of Treatment Upcoming Encounters Date Type Department Care Team (Late st Contact Info) Description 10/23/2024 9:30 AM CDT Office Visit [facility] [address], [address] [place] [phone] [place] [address] [place] [phone] Johnny Penn MD [address] [facility] [place] [address] Health Maintenance Due [...] PLATELETS & DIFFERENTIAL STAT 08/27/2024 9:19 PM DISBURSING AGENT CBC WITH PLATELETS AND DIFFERENTIAL STAT 08/27/2024 9:19 PM DISBURSING AGENT EXTRA RED TOP TUBE STAT 08/27/2024 9: 19 PM DISBURSING AGENT EXTRA BLUE TOP TUBE STAT 08/27/2024 9 :19 PM DISBURSING AGENT TROPONIN T, HIGH SENSITIVITY STAT 08/27/2024 9:19 PM DISBURSING AGENT BASIC METABOLIC PANEL STAT 08/27/2024 9:19 PM DISBURSING AGENT EXTRA TUBE STAT 08/27/2024 9:19 PM DISBURSING AGENT EKG 12-LEAD, TRACING ONLY STAT 08/27/2024 8:48 PM DISBURSING AGENT HEPATITIS B CORE ANTIBODY Routine 08/03/2024 3:04 PM DISBURSING AGENT Screen for STD (sexually transmitted disease) HEPATITIS C ANTIBODY Routine 08/03/2024 3:04 PM DISBURSING AGENT Screen for STD (sexually transmitted disease) TREPONEMA ABS W REFLEX TO RPR AND TITER Routine 08/03/2024 3:04 PM DISBURSING AGENT Screen for STD (sexually transmitted disease) HIV ANTIGEN ANTIBODY COMBO Routine 08/03/2024 3:04 PM DISBURSING AGENT Screen for STD (sexually transmitted disease) CHLAMYDIA TRACHOMATIS/NEISSERIA GONORRHOEAE BY PCR Routine 08/03/2024 2:28 PM DISBURSING AGENT Abdominal discomfort WET PREPARATION Routine 08/03/2024 2:16 PM DISBURSING AGENT Abdominal discomfort UA MACROSCOPIC WITH REFLEX TO MICRO AND CULTURE Routine 08/03/2024 2:15 PM DISBURSING AGENT Abdominal discomfort EKG 12-LEAD COMPLETE W/READ - CLINICS Routine 08/03/2024 Chest discomfort NEISSERIA GONORRHOEAE PCR Routine 06/21/2024 4:22 PM DISBURSING AGENT Screen for STD (sexually transmitted disease) CHLAMYDIA TRACHOMATIS PCR Routine 06/21/2024 4:22 PM DISBURSING AGENT Screen for STD (sexually transmitted disease) WET PREPARATION Routine 06/21/2024 4:22 PM DISBURSING AGENT Vaginal discharge TREPONEMA ABS W REFLEX TO RPR AND TITER Routine 06/21/2024 4:22 PM DISBURSING AGENT Screen for STD (sexually transmitted disease) HIV ANTIGEN ANTIBODY COMBO Routine 06/21/2024 4:22 PM DISBURSING AGENT Screen for STD (sexually transmitted disease) HLA RESULT REPORT 06/06/2024 2:0 4 PM DISBURSING AGENT GROUP A STREPTOCOCCUS PCR THROAT SWAB Routine 06/05/2024 6:28 PM DISBURSING AGENT Lymphadenopathy STREPTOCOCCUS A RAPID SCREEN W REFELX TO PCR Routine 06/05/2024 6:28 PM DISBURSING AGENT Lymphadenopathy EKG 12-LEAD COMPLETE W/READ - CLINICS Routine 06/05/2024 Lymphadenopathy QUANTIFERON-TB GOLD PLUS Routine 05/31/2024 4:44 PM DISBURSING AGENT Psoriatic arthritis (H) Tuberculosis screening Encounter for hepatitis C screening test for low risk patient QUANTIFERON TB GOLD PLUS Routine 05/31/2024 4:44 PM DISBURSING AGENT Psoriatic arthritis (H) Tuberculosis screening Encounter for hepatitis C screening test for low risk patient QUANTIFERON TB GOLD PLUS PURPLE TUBE Routine 05/31/2024 4:44 PM DISBURSING AGENT Psoriatic arthritis (H) Tuberculosis screening Encounter for hepatitis C screening test for low risk patient QUANTIFERON TB GOLD PLUS YELLOW TUBE Routine 05/31/2024 4:44 PM DISBURSING AGENT Psoriatic arthritis (H) Tuberculosis screening Encounter for hepatitis C screening test for low risk patient QUANTIFERON TB GOLD PLUS GREEN TUBE Routine 05/31/2024 4:44 PM DISBURSING AGENT Psoriatic arthritis (H) Tuberculosis screening Encounter for hepatitis C screening test for low risk patient QUANTIFERON TB GOLD PLUS GIL TUBE Routine 05/31/2024 4:44 PM DISBURSING AGENT Psoriatic arthritis (H) Tuberculosis screening Encounter for hepatitis C screening test for low risk patient RHEUMATOID FACTOR Routine 05/31/2024 4:4 3 PM DISBURSING AGENT Psoriatic arthritis (H) Tuberculosis screening Encounter for hepatitis C screening test for low risk patient CYCLIC CITRULLINATED PEPTIDE ANTIBODY IGG Routine 05/31/2024 4:43 PM DISBURSING AGENT Psoriatic arthritis (H) Tuberculosis screening Encounter for hepatitis C screening test for low risk patient HEPATITIS C ANTIBODY Routine 05/31/2024 4:42 PM DISBURSING AGENT Psoriatic arthritis (H) Tuberculosis screening Encounter for hepatitis C screening test for low risk patient HEPATITIS B SURFACE ANTIGEN Routine 05/31/2024 4:42 PM DISBURSING AGENT Psoriatic arthritis (H) Tuberculosis screening Encounter for hepatitis C screening test for low risk patient HEPATITIS B SURFACE ANTIBODY Routine 05/31/2024 4:42 PM DISBURSING AGENT Psoriatic arthritis (H) Tuberculosis screening Encounter for hepatitis C screening test for low risk patient HEPATITIS B CORE ANTIBODY Routine 05/31/2024 4:42 PM DISBURSING AGENT Psoriatic arthritis (H) Tuberculosis screening Encounter for hepatitis C screening test for low risk patient ERYTHROCYTE SEDIMENTATION RATE AUTO Routine 05/31/2024 4:42 PM DISBURSING AGENT Psoriatic arthritis (H) Tuberculosis screening Encounter for hepatitis C screening test for low risk patient CRP INFLAMMATION Routine 05/31/2024 4:42 PM DISBURSING AGENT Psoriatic arthritis (H) Tuberculosis screening Encounter for hepatitis C screening test for low risk patient HLA-B27 TYPING Routine 05/31/2024 4:41 PM DISBURSING AGENT Psoriatic arthritis (H) Tuberculosis screening Encounter for hepatitis C screening test for low risk patient GYNECOLOGIC CYTOLOGY Routine 09/22/2021 3:14 PM CDT Encounter for screening for cervical cancer from Last 3 Months or Most Recently Relevant to Health Maintenance Results * Extra Red Top Tube (08/27/2024 9:19 PM DISBURSING AGENT) Hold Specimen [facility] 08/27/2024 10:31 PM DISBURSING AGENT [facility] Blood STRUCTURE OF RIGHT UPPER LIMB / Unknown Venipuncture / Unknown 08/27/2024 9:19 PM DISBURSING AGENT 08/27/2024 9:23 PM DISBURSING AGENT Fady Vega MD LAB - BLOOD ORDERABLES Fi nal Result [facility] Lab [address] Lab (1st floor, no room number) [address] * Extra Blue Top Tube (08/27/2024 9:19 PM DISBURSING AGENT) Hold Specimen [facility] 08/27/2024 10:31 PM DISBURSING AGENT [facility] Blood STRUCTURE OF RIGHT UPPER LIMB / Unknown Venipuncture / Unknown 08/27/2024 9:19 PM DISBURSING AGENT 08/27/2024 9:23 PM DISBURSING AGENT Fady Vega MD LAB - BLOOD ORDERABLES Fi nal Result Performing Organization Address City/[facility]/ZIP Co de Phone Number [facility] Lab [address] Lab (1st floor, no room number) [address] * (ABNORMAL) CBC with platelets and differential (08/27/2024 9:19 PM DISBURSING AGENT) Pathologist [facility] WBC Count 8.7 4.0 - 11.0 10e3/uL 08/27/2024 9:26 PM DISBURSING AGENT [facility] RBC Count 4.59 3.80 - 5.20 10e6/uL 08/27/2024 9:26 PM DISBURSING AGENT [facility] Hemoglobin 11.7 11.7 - 15.7 g/dL 08/27/2024 9:26 PM DISBURSING AGENT [facility] Hematocrit 36.7 35.0 - 47.0 % 08/27/2024 9:26 PM DISBURSING AGENT [facility] MCV 80 78 - 100 fL 08/27/2024 9:26 PM DISBURSING AGENT [facility] MCH 25.5(L) 26.5 - 33.0 pg 08/27/2024 9:26 PM DISBURSING AGENT [facility] MCHC 31.9 31.5 - 36.5 g/dL 08/27/2024 9:26 PM DISBURSING AGENT [facility] RDW 12.6 10.0 - 15.0 % 08/27/2024 9:26 PM DISBURSING AGENT [facility] Platelet Count 252 150 - 450 10e3/uL 08/27/2024 9:26 PM DISBURSING AGENT [facility] % Neutrophils 64 % 08/27/2024 9:26 PM DISBURSING AGENT [facility] % Lymphocytes 26 % 08/27/2024 9:26 PM DISBURSING AGENT [facility] % Monocytes 6 % 08/27/2024 9:26 PM DISBURSING AGENT [facility] % Eosinophils 4 % 08/27/2024 9:26 PM DISBURSING AGENT [facility] % Basophils 1 % 08/27/2024 9:26 PM DISBURSING AGENT [facility] % Immature Granulocytes 0 % 08/27/2024 9:26 PM DISBURSING AGENT [facility] NRBCs per 100 WBC 0 <1 /100 025 9:26 PM DISBURSING AGENT [facility] Absolute Neutrophils 5.5 1.6 - 8.3 10e3/uL 08/27/2024 9:26 PM DISBURSING AGENT [facility] Absolute Lymphocytes 2.3 0.8 - 5.3 10e3/uL 08/27/2024 9:26 PM DISBURSING AGENT [facility] Absolute Monocytes 0.5 0.0 - 1.3 10e3/uL 08/27/2024 9:26 PM DISBURSING AGENT [facility] Absolute Eosinophils 0.3 0.0 - 0.7 10e3/uL 08/27/2024 9:26 PM DISBURSING AGENT [facility] Absolute Basophils 0.1 0.0 - 0.2 10e3/uL 08/27/2024 9:26 PM DISBURSING AGENT [facility] Absolute Immature Granulocytes 0.0 <=0.4 10e3/uL 08/27/2024 9:26 PM DISBURSING AGENT [facility] Absolute NRBCs 0.0 10e3/uL 08/27/2024 9:26 PM DISBURSING AGENT [facility] Blood STRUCTURE OF RIGHT UPPER LIMB / Unknown Venipuncture / Unknown 08/27/2024 9:19 PM DISBURSING AGENT 08/27/2024 9:23 PM DISBURSING AGENT us Fady Vega MD LAB - BLOOD ORDERABLES Fi nal Result [facility] [address] Lab (1st floor, no room number) [place] [address] * Troponin T, High Sensitivity (08/27/2024 9:19 PM DISBURSING AGENT) Pathologist [facility] Troponin T, High Sensitivity <6 <=14 ng/L 08/27/2024 9:54 PM DISBURSING AGENT LABORATORY Comment: Either a High Sensitivity Troponin [...] Unknown Venipuncture / Unknown 08/27/2024 9:19 PM DISBURSING AGENT 08/27/2024 9:23 PM DISBURSING AGENT us Fady Vega MD LAB - BLOOD ORDERABLES Fi nal Result LABORATORY [facility] [address] Lab (1st floor, no room number) [place] [address] * Basic metabolic panel (BMP) (08/27/2024 9:19 PM DISBURSING AGENT) Pathologist [facility] Sodium 137 135 - 145 mmol/L 08/27/2024 9:54 PM DISBURSING AGENT LABORATORY Potassium 3.9 3.4 - 5.3 mmol/L 08/27/2024 9:54 PM DISBURSING AGENT LABORATORY Chloride 103 98 - 107 mmol/L 08/27/2024 9:54 PM DISBURSING AGENT LABORATORY Carbon Dioxide (CO2) 23 22 - 29 mmol/L 08/27/2024 9:54 PM DISBURSING AGENT LABORATORY Anion Gap 11 7 - 15 mmol/L 08/27/2024 9:54 PM DISBURSING AGENT LABORATORY Urea Nitrogen 12.9 6.0 - 20.0 mg/dL 08/27/2024 9:54 PM DISBURSING AGENT LABORATORY Creatinine 0.68 0.51 - 0.95 mg/dL 08/27/2024 9:54 PM DISBURSING AGENT LABORATORY GFR Estimate >90 >60 mL/min/1.7 3m2 08/27/2024 9:54 PM DISBURSING AGENT LABORATORY Comment:eGFR calculated us2020 CKD-EPI equation. Calcium 9.1 8.8 - 10.4 mg/dL 08/27/2024 9:54 PM DISBURSING AGENT LABORATORY Glucose 86 70 - 99 mg/dL 08/27/2024 9:54 PM DISBURSING AGENT LABORATORY Blood STRUCTURE OF RIGHT UPPER LIMB / Unknown Venipuncture / Unknown 08/27/2024 9:19 PM DISBURSING AGENT 08/27/2024 9:23 PM DISBURSING AGENT Fady Vega MD LAB - BLOOD ORDERABLES Fi nal Result LABORATORY [facility] [address] Lab (1st floor, no room number) [place] [address] * EKG 12 lead (08/27/2024 8:48 PM DISBURSING AGENT) Systolic Blood Pressure mmHg RADIOLOGY RESULTS Diastolic Blood Pressure mmHg RADIOLOGY RESULTS Ventricular Rate 80 BPM RAD IOLOGY RESULTS Atrial Rate 80 BPM RADIOLOG Y RESULTS CO Interval 152 ms RADIOLOG Y RESULTS QRS Duration 94 ms RADIOLO GY RESULTS QT 370 ms RADIOLOGY RESULTS QTc 426 ms RADIOLOGY RESULTS P [place] 52 degrees RADIOLOGY RESULTS R AXIS 68 degrees RADIOLOGY RESULTS T [place] 53 degrees RADIOLOGY RESULTS Interpretation ECG Sinus rhythm Normal ECG When compared with ECG of 07-Apr-2024 03:06, No significant change was found Confirmed by - EMERGENCY ROOM, PHYSICIAN ([id number]), editor school photograph RENITA MANZO ([id number]) on 08/28/2024 7:15:42 AM RADIOLOGY RESULTS 08/27/2024 8:48 PM DISBURSING AGENT 08/28/2024 7:15 AM DISBURSING AGENT Fady Vega MD ECG ORDERABLES Edited Re sult - Final RADIOLOGY RESULTS * HIV Antigen Antibody Combo [place] (08/03/2024 3:04 PM DISBURSING AGENT) Only the most recent of2 resultswithin the time period is included. HIV Antigen Antibody Combo Nonreactive Nonreactive 08/03/2024 9:29 PM DISBURSING AGENT [facility] Comment:Negative HIV-1 p24 a ntigen [...] Unknown Venipuncture / Unknown 08/03/2024 3:04 PM DISBURSING AGENT 08/03/2024 3:05 PM DISBURSING AGENT Jaron Hager PA-C LAB - BLOOD ORDERABLES Final Result Performing Organization Address City/[facility]/ZIP Co de Phone Number LABORATORY [facility] [address] [facility], [address] [address] * Treponema Abs w Reflex to RPR and Titer (08/03/2024 3:04 PM DISBURSING AGENT) Only the most recent of2 resultswithin the time period is included. Treponema Antibody Total Nonreactive Nonreactive 08/04/2024 10:06 AM DISBURSING AGENT [facility]/EN DO Blood BLOOD SPECIMEN / Unknown Venipuncture / Unknown 08/03/2024 3:04 PM DISBURSING AGENT 08/03/2024 3:05 PM DISBURSING AGENT Jaron Hager PA-C LAB - BLOOD ORDERABLES Final Result [facility]/PROT/ENDO [facility]Prot/Endo [address] [facility], [address] * Hepatitis C antibody (08/03/2024 3:04 PM DISBURSING AGENT) Only the most recent of2 resultswithin the time period is included. Hepatitis C Antibody Nonreactive Nonreactive 08/03/2024 8:55 PM DISBURSING AGENT [facility] Comment:A nonreactive screen ing test [...] Unknown Venipuncture / Unknown 08/03/2024 3:04 PM DISBURSING AGENT 08/03/2024 3:05 PM DISBURSING AGENT Jaron Hager PA-C LAB - BLOOD ORDERABLES Final Result Performing Organization Address City/[facility]/ZIP Co de Phone Number LABORATORY [facility] [address] [facility], [address] * Hepatitis B core antibody (08/03/2024 3:04 PM DISBURSING AGENT) Only the most recent of2 resultswithin the time period is included. Hepatitis B Core Antibody Total Nonreactive Nonreactive 08/03/2024 8:55 PM DISBURSING AGENT [facility] Comment:Nonreactive hepatiti s B core antibody test results indicate the absence of exposure to hepatitis B virus and no evidence of recent, past/resolved, or chronic hepatitis B. Blood BLOOD SPECIMEN / Unknown Venipuncture / Unknown 08/03/2024 3:04 PM DISBURSING AGENT 08/03/2024 3:05 PM DISBURSING AGENT Jaron Hager PA-C LAB - BLOOD ORDERABLES Final Result LABORATORY [facility] [address] [facility], [address] [place] [address] * Chlamydia trachomatis/Neisseria gonorrhoeae by PCR (08/03/2024 2:28 PM DISBURSING AGENT) Pathologist [facility] Chlamydia Trachomatis Negative Negative 08/04/2024 11:14 AM DISBURSING AGENT [facility] Comment: Negative for C. trachomatis rRNA by tire inspector mediated amplification. A negative result by tire inspector mediated amplification does not preclude the presence of infection because results are dependent on proper and adequate collection, absence of inhibitors and sufficient rRNA to be detected. Neisseria gonorrhoeae Negative Negative 08/04/2024 11:14 AM DISBURSING AGENT [facility] Comment:Negative for N. gono rrhoeae rRNA by tire inspector mediated amplification. A negative result by tire inspector mediated amplification does not preclude the presence of C. trachomatis infection because results are dependent on proper and adequate collection, absence of inhibitors and sufficient rRNA to be detected. CTNG Specimen Source Vagina 08/04/2024 11:14 AM DISBURSING AGENT [facility] Swab VAGINAL STRUCTURE / Unknown Non-blood Collection / Unknown 08/03/2024 2:28 PM DISBURSING AGENT 08/03/2024 2:28 PM DISBURSING AGENT Mani Gentile MD LAB - MICRO GENERAL ORDERABLES F inal Result [facility] Inf. Diseases Diag. Lab [address] [facility], [address] [place] [address] * (ABNORMAL) Wet preparation (08/03/2024 2:16 PM DISBURSING AGENT) Only the most recent of2 resultswithin the time period is included. Trichomonas Absent Absent REINA 08/03/2024 2:22 PM DISBURSING AGENT [facility] Yeast Absent Absent REINA 08/03/2024 2:22 PM DISBURSING AGENT [facility] Clue Cells Absent Absent REINA 08/03/2024 2:22 PM DISBURSING AGENT [facility] WBCs/high power field 2+(A) None REINA 08/03/2024 2:22 PM DISBURSING AGENT [facility] Swab VAGINAL STRUCTURE / Unknown Non-blood Collection / Unknown 08/03/2024 2:16 PM DISBURSING AGENT 08/03/2024 2:16 PM DISBURSING AGENT us Mani Gentile MD LAB - MICRO GENERAL ORDERABLES F inal Result Performing Organization Address [facility]/ZIP Co de Phone Number LABORATORY [facility] [address] [facility] Lab (no room number, 1st floor of clinic) [place] [address], [facility] * UA Macroscopic with reflex to Microscopic and Culture (08/03/2024 2:15 PM DISBURSING AGENT) Color Urine Yellow Colorless, Straw, Light Yellow, Yellow 08/03/2024 2:20 PM DISBURSING AGENT LABORATORY Appearance Urine Clear Clear 08/03/19 2:20 PM DISBURSING AGENT LABORATORY Glucose Urine Negative Negative mg/dL 08/03/2024 2:20 PM DISBURSING AGENT LABORATORY Bilirubin Urine Negative Negative 2:20 PM DISBURSING AGENT LABORATORY Ketones Urine Negative Negative mg/dL 08/03/2024 2:20 PM DISBURSING AGENT LABORATORY Specific [place] Urine 1.010 1.003 - 1.035 08/03/2024 2:20 PM DISBURSING AGENT LABORATORY Blood Urine Negative Negative 08/03/2024 2:20 PM DISBURSING AGENT LABORATORY pH Urine 7.0 5.0 - 7.0 08/03/2024 2:20 PM DISBURSING AGENT LABORATORY Protein Albumin Urine Negative Negative mg/dL 08/03/2024 2:20 PM DISBURSING AGENT LABORATORY Urobilinogen Urine 0.2 0.2, 1.0 E.U./dL 08/03/2024 2:20 PM DISBURSING AGENT LABORATORY Nitrite Urine Negative Negative 08/03/2024 2:20 PM DISBURSING AGENT LABORATORY Leukocyte Esterase Urine Negative Negative 08/03/2024 2:20 PM DISBURSING AGENT LABORATORY Urine URINE SPECIMEN OBTAINED BY CLEAN CATCH PROCEDURE / Unknown Non-blood Collection / Unknown 08/03/2024 2:15 PM DISBURSING AGENT 08/03/2024 2:15 PM DISBURSING AGENT Narrative LABORATORY - 08/03/2024 2:20 PM DISBURSING AGENT Microscopic not indicated us Mani Gentile MD LAB - URINE ORDERABLES Final Res ult LABORATORY [facility] [address] [facility] Lab (no room number, 1st floor of clinic) [place] [address] * EKG 12-lead complete w/read - Clinics (08/03/2024) Only the most recent of2 resultswithin the time period is included. Mani Gentile MD ECG ORDERABLES Final Result * Neisseria gonorrhoeae PCR (06/21/2024 4:22 PM DISBURSING AGENT) Neisseria gonorrhoeae Negative Negative 06/22/2024 5:48 PM DISBURSING AGENT [facility] Comment:Negative for N. gono rrhoeae rRNA by tire inspector mediated amplification. A negative result by tire inspector mediated amplification does not preclude the presence of C. trachomatis infection because results are dependent on proper and adequate collection, absence of inhibitors and sufficient rRNA to be detected. Swab VAGINAL STRUCTURE / Unknown Non-blood Collection / Unknown 06/21/2024 4:22 PM DISBURSING AGENT 06/21/2024 4:36 PM DISBURSING AGENT Esha Grimm PA-C LAB - MICRO GENERAL ORDERABLES Final Result [facility] LABORATORY [facility] Inf. Diseases Diag. Lab [address], [address] [place] [address] * Chlamydia trachomatis PCR (06/21/2024 4:22 PM DISBURSING AGENT) Chlamydia trachomatis Negative Negative 06/22/2024 5:48 PM DISBURSING AGENT [facility] Comment:A negative result by tire inspector mediated amplification does not preclude the presence of C. trachomatis infection because results are dependent on proper and adequate collection, absence of inhibitors and sufficient rRNA to be detected. Swab VAGINAL STRUCTURE / Unknown Non-blood Collection / Unknown 06/21/2024 4:22 PM DISBURSING AGENT 06/21/2024 4:36 PM DISBURSING AGENT Esha Grimm PA-C LAB - MICRO GENERAL ORDERABLES Final Result [facility] LABORATORY [facility] Inf. Diseases Diag. Lab [address], [address] [place] [address], [facility] * HLA Result Report (06/06/2024 2:04 PM DISBURSING AGENT) us Provider Outside LAB - IMMUNOLOGY ORDERABLES Fin al Result * Streptococcus A Rapid Screen w/Reflex to PCR - Clinic Collect (06/05/2024 6:28 PM DISBURSING AGENT) Pathologist [facility] Group A Strep antigen Negative Negative 06/05/2024 6:50 PM DISBURSING AGENT LV LABORATORY Swab STRUCTURE OF ANTERIOR PORTION OF NECK / Unknown Non-blood Collection / Unknown 06/05/2024 6:28 PM DISBURSING AGENT 06/05/2024 6:44 PM DISBURSING AGENT Jaron Hager PA-C LAB - MICRO GENERAL ORD ERABLES Final Result LABORATORY [facility] [address] [facility] Lab (no room number, 1st floor of clinic) [place] [address], [facility] * Group A Streptococcus PCR Throat Swab (06/05/2024 6:28 PM DISBURSING AGENT) Pathologist [facility] Group A strep by PCR Not Detected Not Detected 06/06/2024 4:18 PM DISBURSING AGENT [facility] Swab STRUCTURE OF ANTERIOR PORTION OF NECK / Unknown Non-blood Collection / Unknown 06/05/2024 6:28 PM DISBURSING AGENT 06/05/2024 6:50 PM DISBURSING AGENT Narrative [facility] LAB[facility]AT[facility] - 06/06/2024 4:18 PM DISBURSING AGENT The Xpert Xpress Strep A test, performed on the [employer], is a rapid, qualitative in [...] ORD ERABLES Final Result [facility] LABORATORY [facility] Inf. Diseases Diag. Lab [address], [address] * Quantiferon TB Gold Plus (05/31/2024 4:44 PM DISBURSING AGENT) Quantiferon-TB Gold Plus Negative Negative 06/02/2024 9:45 AM DISBURSING AGENT SPECIALTY CORE/PROT/END O Comment: No interferon gamma [...] Nil Value -0.05 IU/mL 06/02/2024 9:45 AM DISBURSING AGENT SPECIALTY CORE/PROT/END O TB2 Ag minus Nil Value 0.05 IU/mL 06/02/2024 9:45 AM DISBURSING AGENT SPECIALTY CORE/PROT/END O Mitogen minus Nil Result 9.73 IU/mL 06/02/2024 9:45 AM DISBURSING AGENT SPECIALTY CORE/PROT/END O Nil Result 0.27 IU/mL 06/02/2024 9:45 AM DISBURSING AGENT SPECIALTY CORE/PROT/END O Blood BLOOD SPECIMEN / Unknown Venipuncture / Unknown 05/31/2024 4:44 PM DISBURSING AGENT 05/31/2024 4:44 PM DISBURSING AGENT Herminia Hatch MD LAB - MICRO GENERAL ORDERABLES F inal Result SPECIALTY CORE/PROT/ENDO Specialty Core/Prot/Endo [address] [facility], Room [address] * Quantiferon TB Gold Plus Purple Tube (05/31/2024 4:44 PM DISBURSING AGENT) Quantiferon Mitogen 10.00 IU/mL 06/02/2024 9:11 AM DISBURSING AGENT UM SPECIALTY CORE/PROT/ENDO Blood BLOOD SPECIMEN / Unknown Venipuncture / Unknown 05/31/2024 4:44 PM DISBURSING AGENT 05/31/2024 4:44 PM DISBURSING AGENT us Herminia Hatch MD LAB - MICRO GENERAL ORDERABLES F inal Result UM SPECIALTY CORE/PROT/ENDO UM Specialty Core/Prot/Endo 500 [facility] [address], [address] * Quantiferon TB Gold Plus Yellow Tube (05/31/2024 4:44 PM DISBURSING AGENT) Quantiferon TB2 Tube 0.32 06/02/2024 9:11 AM DISBURSING AGENT UM SPECIALTY CORE/PROT/ENDO Blood BLOOD SPECIMEN / Unknown Venipuncture / Unknown 05/31/2024 4:44 PM DISBURSING AGENT 05/31/2024 4:44 PM DISBURSING AGENT us Herminia Hatch MD LAB - MICRO GENERAL ORDERABLES F inal Result UM SPECIALTY CORE/PROT/ENDO UM Specialty Core/Prot/Endo 500 [facility] [address] [facility], [address] * Quantiferon TB Gold Plus Green Tube (05/31/2024 4:44 PM DISBURSING AGENT) Quantiferon TB1 Tube 0.22 IU/mL 06/02/2024 9:11 AM DISBURSING AGENT UM SPECIALTY CORE/PROT/ENDO Blood BLOOD SPECIMEN / Unknown Venipuncture / Unknown 05/31/2024 4:44 PM DISBURSING AGENT 05/31/2024 4:44 PM DISBURSING AGENT us Herminia Hatch MD LAB - MICRO GENERAL ORDERABLES F inal Result UM SPECIALTY CORE/PROT/ENDO UM Specialty Core/Prot/Endo 500 [facility] [address], [address] * Quantiferon TB Gold Plus Gil Tube (05/31/2024 4:44 PM DISBURSING AGENT) Quantiferon Nil Tube 0.27 IU/mL 06/02/2024 9:11 AM DISBURSING AGENT UM SPECIALTY CORE/PROT/ENDO Blood BLOOD SPECIMEN / Unknown Venipuncture / Unknown 05/31/2024 4:44 PM DISBURSING AGENT 05/31/2024 4:44 PM DISBURSING AGENT us Herminia Hatch MD LAB - MICRO GENERAL ORDERABLES F inal Result UM SPECIALTY CORE/PROT/ENDO UM Specialty Core/Prot/Endo 500 [facility] [address] [facility], [address] * Cyclic Citrullinated Peptide Antibody IgG (05/31/2024 4:43 PM DISBURSING AGENT) Cyclic Citrullinated Peptide Antibody IgG 1.7 <7.0 U/mL 06/02/2024 6:47 AM DISBURSING AGENT UM SPECIALTY CORE/PROT/END O Comment:Negative Blood BLOOD SPECIMEN / Unknown Venipuncture / Unknown 05/31/2024 4:43 PM DISBURSING AGENT 05/31/2024 4:43 PM DISBURSING AGENT us Herminia Hatch MD LAB - BLOOD ORDERABLES Final Res ult SPECIALTY CORE/PROT/ENDO Specialty Core/Prot/Endo 500 [facility] [address] [facility], [address] * Rheumatoid factor (05/31/2024 4:43 PM DISBURSING AGENT) Rheumatoid Factor <10 <14 IU/mL 06/01/2024 9:02 AM DISBURSING AGENT [facility] LABORATORY Blood BLOOD SPECIMEN / Unknown Venipuncture / Unknown 05/31/2024 4:43 PM DISBURSING AGENT 05/31/2024 4:43 PM DISBURSING AGENT us Herminia Hatch MD LAB - BLOOD ORDERABLES Final Res ult U LABORATORY [facility] 500 [facility], [address] [id number] * Hepatitis B Surface Antibody (05/31/2024 4:42 PM DISBURSING AGENT) Pathologist [facility] Hepatitis B Surface Antibody Nonreactive 06/01/2024 9:23 AM DISBURSING AGENT LABORATORY Comment:Nonreactive results, defined as anti-HBs levels of less than 8.5 mIU/mL, indicate a lack of recovery from acute or chronic hepatitis B or inadequate immune response to HBV vaccination. Hepatitis B Surface Antibody Instrument Value <3.50 <8.5 m[IU]/mL 06/01/2024 9:23 AM DISBURSING AGENT LABORATORY Blood BLOOD SPECIMEN / Unknown Venipuncture / Unknown 05/31/2024 4:42 PM DISBURSING AGENT 05/31/2024 4:42 PM DISBURSING AGENT us Herminia Hatch MD LAB - BLOOD ORDERABLES Final Res ult LABORATORY [facility] 500 [facility], [address] [phone] [place] [address] * Hepatitis B surface antigen (05/31/2024 4:42 PM DISBURSING AGENT) Pathologist [facility] Hepatitis B Surface Antigen Nonreactive Nonreactive 06/01/2024 9:22 AM DISBURSING AGENT LABORATORY Blood BLOOD SPECIMEN / Unknown Venipuncture / Unknown 05/31/2024 4:42 PM DISBURSING AGENT 05/31/2024 4:42 PM DISBURSING AGENT us Herminia Hatch MD LAB - BLOOD ORDERABLES Final Res ult U LABORATORY [facility] 500 [facility], [address] [id number] * Erythrocyte sedimentation rate auto (05/31/2024 4:42 PM DISBURSING AGENT) Pathologist [facility] Erythrocyte Sedimentation Rate 10 0 - 20 mm/hr 05/31/2024 4:56 PM DISBURSING AGENT [facility] LABORATORY Blood BLOOD SPECIMEN / Unknown Venipuncture / Unknown 05/31/2024 4:42 PM DISBURSING AGENT 05/31/2024 4:42 PM DISBURSING AGENT us Herminia Hatch MD LAB - BLOOD ORDERABLES Final Res ult Performing Organization Address [facility]/ZIP Co de Phone Number [facility] [address] [place] [address] [place] [address], [facility] * CRP, inflammation (05/31/2024 4:42 PM DISBURSING AGENT) CRP Inflammation <3.00 <5.00 mg/L 05/31/20 4:59 PM DISBURSING AGENT [facility] LABORATORY Blood BLOOD SPECIMEN / Unknown Venipuncture / Unknown 05/31/2024 4:42 PM DISBURSING AGENT 05/31/2024 4:42 PM DISBURSING AGENT us Herminia Hatch MD LAB - BLOOD ORDERABLES Final Res ult Performing Organization Address City/[facility]/ZIP Co de Phone Number [facility] [address] [place] [address] [place] [address], [facility] * HLA-B27 Typing (05/31/2024 4:41 PM DISBURSING AGENT) Pathologist [facility] [id number] METHOD NGS 06/06/2024 2:04 PM DISBURSING AGENT [facility] HLA LABORATORY B locus B27 Neg 06/06/2024 2:04 PM DISBURSING AGENT U HLA LABORATORY Blood BLOOD SPECIMEN / Unknown Venipuncture / Unknown 05/31/2024 4:41 PM DISBURSING AGENT 05/31/2024 4:42 PM DISBURSING AGENT us Herminia Hatch MD LAB - IMMUNOLOGY ORDERABLES Shira l Result U HLA LABORATORY Immunology/Histocomp atability CLIA: [id number] [facility] [address], [address] [place] [address], [facility] [phone] * Pap screen reflex to HPV if [...] component of this testing was completed at [facility] 09/25/2021 10:27 AM CDT SPECIALTY LABS Brushing CERVIX UTERI STRUCTURE / Unknown 09/22/2021 3:14 PM CDT 09/22/2021 3:48 PM CDT Marija dEgar APRN [employer] LAB - [place] AP Final Re sult SPECIALTY LABS [facility] Specialty Lab 500 [facility] [address] [facility], [address] [place] [address], [place] [phone] from Last 3 Months or Most Recently Relevant to Health Maintenance Insurance [id number] [address] [facility] [address] [address] [facility] [id number] [address] [facility] * Guarantor: Kim Johnson Account Type Relation to Patient Date of Phone Billing Address Medication Therapy Self [address] [place] [id number] [facility] * Guarantor: Kim Johnson Account Type Relation to Patient Date of Phone Billing Address Medication Therapy Self [address] [place] [id number] [facility] Advance Directives For more information, please contact: [phone] * Full Code (Latest Code Status on File) Date Activated Date Inactivated Comments 01/14/2021 7:36 AM 01/15/2021 6:05 PM All basic and advanced life-sustaining interventions are performed as appropriate Question Answer Comments Code status determined by: Discussion with patie nt/ legal decision maker Care Teams Bucket Hooker Relationship Specialty Start Date End Date Esha Grimm PA-C [address] [place] [address] PCP - General Family Medicine 05/04/23 Diana Desir, [facility] [address] [place] [address] Pharmacist Pharmacist 04/17/21 Rain Galaviz PA-C [address] [place] [address] [address] [place] [address] Physician Hand Scudder Dermatology 04/28/21 Tavia Wyatt MD [address] [place] [address] [address] [place] [address] Dermatology 07/14/21 Erica Farrell APRN [employer] [address] [facility] [address] [place] [address] Nurse Practitioner Cardiovascular Disease 09/09/21 Rich Barrett MD [address] [facility] [address] [place] [address] Physician Ophthalmology 01/21/22 Neil Kent MD [address] [place] [address] [place] [phone] Dermatology 02/24/22 [facility] [address] [place] [address] Assigned MTM Pharmacist 04/07/22 Livan Sharif MD [address], [facility] [address] [place], [place] [address] Cardiovascular Disease 05/14/22 Catherine Cm MD [address] [facility] [place], [place] 0[address] Cardiovascular Disease 07/21/22 Valery Veronica, PAUcheC [address] [place] [address] [phone] Physician Hand Scudder Dermatology 07/21/22 Brea Quinn APRN [employer] [address] [place], [place] 13[address] Nurse Practitioner Dermatology 09/21/22 Alfonso Renteria MD [address] [facility] 200 [place], [place] [address] Assigned Neuroscience Provider 04/02/23 Radha Lomeli APRN [employer] [address] [place] [id number] Assigned Heart and Vascular Provider 05/28/23 [place]elena David OD [address] [facility] [place] [address] MD Ophthalmology 06/15/23 Esha Grimm PA-C [address] [place] [phone] Assigned PCP 07/16/23 Valery Veronica PA-C [address] [place] [address] Physician Hand Scudder Dermatology 09/19/23 Rey Tay MD [address] [place] [address] [id number] MD Gastroenterology 09/20/23 Rocky Zepeda DO [address] [place] [address] 072185 Physician Gastroenterology 09/20/23 Philip Dumont MD [address] [place] [address] [phone] Physician Ophthalmology 09/22/23 Meredith Carrera PA-C [address] [place] [address] Assigned Gastroenterology Provider 11/01/23 Neil Kent MD [address] [address] Dermatology 11/02/23 [place] [address] [place] [address] Neurological Surgery 12/26/23 Audrey Waite PA-C [address] [place] [address] Physician Hand Scudder Dermatology 02/28/24 Valery Veronica PA-C [address] [place] [address] Physician Hand Scudder Dermatology 04/10/24 Herminia Hatch MD [address] [place] [address] Assigned Rheumatology Provider 07/02/24
--- OUTSIDE RECORDS SUMMARY | 2024-08-28 19:03 | XMS_ITS | Encounter Summary ---
Author Organization [facility] Address [address] [place] [address] Care Team Providers Care Coil Cleaner Name Role Phone Lita Oseguera Unavailable Unavailable Marija Edgar APRN WIRE HARNESS ASSEMBLER Primary Care Provider + Chanelle Mccann APRN CNM Unavailab le Kyara De La Fuente RN Unavailable [phone] Marija Edgar APRN WIRE HARNESS ASSEMBLER Unavailable Mynor Broussard MD Unavailable [phone] Keisha Dotson MD Unavailable Stacey Briones ASSISTANT TODDLER TEACHER Unavailable Lesley Guillermo CHW Unavailable Mary Mejia Unavailable Unavailable Lita Oseguera Unavailable Unavailable Galo Burrell MD Unavailable Unavailable Cristina Wood Unavailable Lesley Guillermo CHW Unavailable Meredith Bedoya Unavailable Unavailable Cristina Wood Unavailable Diana Desir [facility] Unavailable Rain Galaviz PA-C Unavailable Summer Lara MD Unavailable [phone] Summer Lara MD Unavailable [phone] Summer Lara MD Unavailable [phone] Tavia Wyatt MD Unavailable [phone] Johnny Murillo MD Unavailable +[phone]- Erica Farrell APRN WIRE HARNESS ASSEMBLER Unavailable + Vikas Teresita Ka Walter H Unavailable Tavia Wyatt MD Unavailable [phone] Diana Desir [facility] Unavailable [phone] Rich Barrett MD Unavailable [phone] Neil Kent MD Unavailable Roney StoryM Unavailable [phone] Erica Farrell APRN WIRE HARNESS ASSEMBLER Unavailable + Diana Desir [facility] Unavailable [phone] Jelena David OD Unavailable [phone] Galo Burrell MD Unavailable Unavailable Livan Sharif MD Unavailable + Livan Sharif MD Unavailable + Catherine Cm MD Unavailable + Valery Veronica PA-C Unavailable [phone] Catherine Cm MD Unavailable + Johnny Murillo MD Unavailable +1- Brea Quinn APRN WIRE HARNESS ASSEMBLER Unavailable +[phone] Brea Quinn APRN WIRE HARNESS ASSEMBLER Unavailable [phone] Jose Francisco Johnson MD Unavailable + Livan Sharif MD Unavailable + Catherine Cm MD Unavailable + Sydnie Martinez RN Unavailable Unavailable Alfonso Renteria MD Unavailable [phone] Esha Grimm PA-C Primary Care Provider [phone] Perez Chengjc Fish PA-C Unavailable Radha Lomeli APRN WIRE HARNESS ASSEMBLER Unavailable Jelena David OD Unavailable Pao Joseph RN Unavailable Unavailable Esha Grimm PA-C Unavailable [phone] Valery Veronica PA-C Unavailable Rey Tay [...] Team (Late st Contact Info) Description 08/31/2020 [facility] Medical Advice [address] [address] Marija Edgar APRN WIRE HARNESS ASSEMBLER [address] [place] [address] Patient/info Update (appointment [...] do you attend chur or tenriism services? More than 4 times per year [...] Answer Date Recorded PHQ-2 Score 0 08/12/2020 [facility] [place] of Occupat ional Health - Occupational Stress [...] CDT Legal Sex Female 4:13 AM CARBON PASTE MIXER OPERATOR Gender Identity Female 03/02/2021 5:45 PM CDT Sexual Orientation Straight 02/28/2020 12 :51 AM CDT COVID-19 Exposure Response Date Recorded In the last month, have you been in contact with someone who was confirmed or suspected to have Coronavirus / COVID-19? No / Unsure 09/03/2020 12:11 PM CARBON PASTE MIXER OPERATOR documented as of this encounter Miscellaneous Notes * Telephone Encounter - Maryjane Mccallum RN - 09/01/2020 7:21 AM CARBON PASTE MIXER OPERATOR Patient sent message requesting office visit [...] Office Visit with Marija Edgar APRN CNP [facility] ([facility] ) [address] [facility] [phone] Maryjane Mccallum, Registered Nurse [facility] ON PASTE MIXER OPERATOR documented in this encounter Plan of Treatment Upcoming Encounters Date Type Department Care Team (Late st Contact Info) Description 10/23/2024 9:30 AM CDT Office Visit [facility] Neurology [facility] - [address], [address] [place] [address] [place] [address] RAZO [facility] [place] [address] Johnny Penn MD [address] [facility] [place] [address] documented as of this encounter Visit Diagnoses Not on filedocumented in this encounter Additional Health Concerns Infection Onset Date Last Indicated Resolved Time Rule Out COVID-19 09/24/2020 09/24/2020 09/24/2020 9:24 AM CDT Rule Out COVID-19 11/05/2020 11/05/2020 11/06/2020 1:09 PM CDT Rule Out COVID-19 05/11/2021 05/11/2021 05/13/2021 10:18 AM CDT Rule Out COVID-19 07/13/2021 07/13/2021 07/14/2021 3:04 PM CARBON PASTE MIXER OPERATOR Rule Out COVID-19 07/18/2021 07/18/2021 07/20/2021 1:56 PM CARBON PASTE MIXER OPERATOR COVID-19 07/18/2021 07/18/2021 08/08/2021 11:3 9 PM CARBON PASTE MIXER OPERATOR Rule Out COVID-19 12/18/2021 12/18/2021 12/19/2021 11:34 AM CDT Rule Out COVID-19 02/24/2022 02/24/2022 02/25/2022 1:08 PM CDT Rule Out COVID-19 04/26/2022 04/26/2022 04/26/2022 6:47 AM CDT Rule Out COVID-19 05/17/2022 05/17/2022 05/17/2022 10:20 PM CARBON PASTE MIXER OPERATOR Rule Out COVID-19 06/09/2022 06/09/2022 06/09/2022 9:35 AM CARBON PASTE MIXER OPERATOR COVID-19 06/09/2022 06/09/2022 06/30/2022 11:4 1 PM CARBON PASTE MIXER OPERATOR Rule Out COVID-19 11/10/2022 11/10/2022 11/11/2022 12:17 PM CDT Rule Out COVID-19 03/07/2023 03/07/2023 03/07/2023 1:20 PM CDT Rule Out COVID-19 12/26/2023 12/26/2023 12/26/2023 9:50 AM CDT Rule Out COVID-19 04/09/2024 04/09/2024 04/10/2024 6:48 PM CDT Assessment Noted Time PHQ-9 Depression Total Score: 9 06/25/20 20 7:04 AM CARBON PASTE MIXER OPERATOR documented as of this encounter Care Teams Coil Cleaner Relationship Specialty Start Date End Date Marija Edgar APRN WIRE HARNESS ASSEMBLER PCP - General Nurse Practitioner 04/30/20 04/14/23 Esha Grimm PA-C [address] [place] [address] PCP - General Family Medicine 05/04/23 Lita Oseguera Personal Advocate & Liaison (PAL) 02/28/20 03/27/23 Chanelle Mccann APRN CNM [address] [place] [address] 200 [place] [address] Assigned OBGYN Provider 05/02/2005/09 Kyara De La Fuente, VJ Specialty Triage Nurse Neurology 06/04/20 03/05/21 Marija Edgar APRN WIRE HARNESS ASSEMBLER Assigned PCP 06/08/20 04/29/23 Mynor Broussard MD 6[address] [facility] 500 [place] [address] Assigned Surgical Provider 06/01/20 11/28/21 Keisha Dotson MD 909 [place] [address] Assigned Neuroscience Provider 06/04/20 04/01/23 Stacey Briones, ASSISTANT TODDLER TEACHER Lead Triage Nurse Primary Care - CC 08/11/2012/30 Lesley Guillermo, W Community Health Worker 08/11/2010/01 Mary Mejia Financial Resource Worker 09/02/20 10/06/20 Lita Oseguera Personal Advocate & Liaison (PAL) Family Medicine 09/10/20 09/21/20 Galo Burrell MD Assigned Heart and Vascular Provider 10/05/20 04/02/22 Cristina Wood Financial Resource Worker 10/07/20 10/14/20 Lesley Guillermo, [facility] Community Health Worker 10/23/2012/30 Meredith Bedoya Financial Resource Worker 10/23/20 11/23/20 Cristina Wood Financial Resource Worker 02/09/21 02/09/21 Diana Desir, [facility] [address] [place], [place] [address] Pharmacist Pharmacist 04/17/21 Rain Galaviz PA-C [address] [place] [address] [address] [place], [place] [id number] Physician Manufacturing Controller Dermatology 04/28/21 Summer Lara MD [address] [place] [address] 969834 Assigned OBGYN Provider 05/10/2105/23 Summer Lara MD [address] [place] [address] 806654 Assigned OBGYN Provider 05/31/21 Summer Lara MD [address] [place] [address] Assigned OBGYN Provider 05/24/2105/30 Tavia Wyatt MD [address] [place] [address] Dermatology 07/14/21 Johnny Murillo MD [address] [place] [address] Assigned Musculoskeletal Provider 08/30/21 03/17/22 Erica Farrell APRN WIRE HARNESS ASSEMBLER [address] [facility] [address] [place] [address] Nurse Practitioner Cardiovascular Disease 09/09/21 Teresita Bean, [facility] [address] [place] [phone] Pharmacist Pharmacist 09/24/21 09/29/21 Tavia Wyatt MD [address] [place] [address] Assigned Surgical Provider 11/29/21 05/07/22 Diana Desir, [facility] [address] [place] [address] Assigned MTM Pharmacist 01/02/22 Rich Barrett MD [address] [facility] 9A [place], [place] 681585 Physician Ophthalmology 01/21/22 Neil Kent MD 500 [place] [address] Dermatology 02/24/22 Roney Story DPM [address] [facility] [address] [place] [address] Assigned Musculoskeletal Provider 03/20/22 08/13/22 Erica Farrell APRN WIRE HARNESS ASSEMBLER [address] [place] [address] Assigned Heart and Vascular Provider 04/03/22 04/16/22 Diana Desir, [facility] [address] [place], [place] 718196 Assigned MTM Pharmacist 04/07/22 Jelena David OD [address] [facility] [place] [address] Assigned Surgical Provider 05/08/22 10/08/22 Galo Burrell MD Assigned Heart and Vascular Provider 04/17/22 06/11/22 Livan Sharif MD [address], [facility] [address] [place] [address] Cardiovascular Disease 05/14/22 Livan Sharif MD [address], [facility] [address] [place] [address] Assigned Heart and Vascular Provider 06/12/22 07/23/22 Catherine Cm MD [address] [facility]00 [place] [address] Cardiovascular Disease 07/21/22 Valery Veronica, PA-C [address] [place] [address] [place] [address] Physician Manufacturing Controller Dermatology 07/21/22 Catherine Cm MD [address] [facility] [address] [place] [address] [place] [address] Assigned Heart and Vascular Provider 07/24/22 11/05/22 Johnny Murillo MD [address] [address] Assigned Musculoskeletal Provider 08/14/22 10/08/22 Brea Quinn APRN WIRE HARNESS ASSEMBLER [address] [place] [address] [id number] Nurse Practitioner Dermatology 09/21/22 Brea Quinn APRN WIRE HARNESS ASSEMBLER [address] [place] [address] [place] 901262 Assigned Surgical Provider 10/09/22 05/01/24 [place] [address] [address] Assigned Musculoskeletal Provider 10/09/22 05/01/24 Livan Sharif MD [address] [facility] [address] [place] [address] Assigned Heart and Vascular Provider 11/06/22 11/12/22 Catherine Cm MD [address] [facility] [facility]00 [place] 214035 Assigned Heart and Vascular Provider 11/13/22 05/27/23 Sydnie Martinez RN Personal Advocate & Liaison (PAL) Family Medicine 03/28/23 07/31/23 Alfonso Renteria MD [address] [facility] 200 [place] [address] Assigned Neuroscience Provider 04/02/23 Cheng Todd PA-C [address] [place] [address] Assigned PCP 04/30/23 07/15/23 Radha Lomeli APRN WIRE HARNESS ASSEMBLER 6405 [facility] [address] [place] [address] Assigned Heart and Vascular Provider 05/28/23 Jelena David OD [address] [facility] [place] [address] Ophthalmology 06/15/23 Pao Joseph, VJ Personal Advocate & Liaison (PAL) Nurse 08/01/23 11/07/23 Esha Grimm PA-C [address] [place] [address] Assigned PCP 07/16/23 Valery Veronica PA-C [address] [place] [address] 036735 Physician Manufacturing Controller Dermatology 09/19/23 Rey Tay MD 909 [place] [address] Gastroenterology 09/20/23 Rocky Zepeda DO 500 [place] [address] Physician Gastroenterology 09/20/23 Philip Dumont MD 6 [place] [address] Physician Ophthalmology 09/22/23 Meredith Carrera PA-C 9 [place] [address] Assigned Gastroenterology Provider 11/01/23 Neil Kent MD [address] [address] MD Dermatology 11/02/23 [place] [address] [address] Neurological Surgery 12/26/23 Audrey Waite PA-C 500 [place] [address] Physician Manufacturing Controller Dermatology 02/28/24 Valery Veronica PA-C 662470 [place], [place] [address] Physician Manufacturing Controller Dermatology 04/10/24 Herminia Hatch MD [facility]5 [place], [place] [address] Assigned Rheumatology Provider 07/02/24 documented as of this encounter
--- OUTSIDE RECORDS SUMMARY | 2024-08-28 19:03 | XMS_ITS | Encounter Summary ---
Author Organization [facility] Address [address] [place] [address] Care Team Providers Care Tong Hooker Name Role Phone Lita Oseguera Unavailable Unavailable Marija Edgar APRN DIESEL ENGINEER Primary Care Provider + Marija Edgar APRN DIESEL ENGINEER Unavailable [phone] Keisha Dotson MD Unavailable Diana Desir [facility] Unavailable [phone] Rain Galaviz PA-C Unavailable Tavia Wyatt MD Unavailable Erica Farrell APRN DIESEL ENGINEER Unavailable Tavia Wyatt MD Unavailable [phone] Rich Barrett MD Unavailable [phone] Neil Kent MD Unavailable Roney Story DPM Unavailable Diana Desir [facility] Unavailable Jelena David OD Unavailable Galo Burrell MD Unavailable Unavailable Livan Sharif MD Unavailable Livan Sharif MD Unavailable Catherine Cm MD Unavailable + Valery Veronica PA-C Unavailable Catherine Cm MD Unavailable + Johnny Murillo MD Unavailable [phone] Brea Quinn TOOL/DIE MAKER DIESEL ENGINEER Unavailable [phone] Brea Quinn TOOL/DIE MAKER DIESEL ENGINEER Unavailable [phone] Jose Francisco Johnson MD Unavailable Livan Sharif MD Unavailable Catherine Cm MD Unavailable + Sydnie Martinez RN Unavailable Unavailable Alfonso Renteria MD Unavailable [phone] Esha Grimm PA-C Primary Care Provider Cheng Todd PA-C Unavailable Radha Lomeli TOOL/DIE MAKER DIESEL ENGINEER Unavailable Jelena David OD Unavailable Pao Joseph RN Unavailable Unavailable Esha Grimm PA-C Unavailable [phone] Valery Veronica PA-C Unavailable [phone] Rey Tay MD Unavailable Rocky Zepeda DO Unavailable Philip Dumont MD Unavailable Meredith Carrera PA-C Unavailable Neil Kent MD Unavailable Juan Pablo Emmanuel MD Unavailable Audrey Waite PA-C Unavailable Valery Veronica PA-C Unavailable Herminia Hatch MD [facility] Encounter Details Date Type Department Care Team (Late st Contact Info) Description 04/20/[address] [facility] Heart [address] [place] [phone] Margaret Rendon, RN Social History Tobacco Use [...] How often do you attend hindu or moravian serv ices? Never 09/22/2021 Do [...] Date Recorded PHQ-2 Score 2 12/18/2021 [facility] of Occupat [...] in a fci (including now)? No 09/22/2021 Jewett Depression Scale Answer Date Recorded Jewett Depression Score 5 01/14/2021 Last EPDS Self Harm Result Not on file 01/14 Education Answer Date Recorded What is the highest level of school you have completed or the highest degree you have received? 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 NURSE GENERAL DUTY Gender Identity Female 03/02/2021 5:45 PM CDT [...] 9:30 AM CDT Office Visit [facility] Neurology [address], [address] [place] [address] [place] [address] [address] [place] [address] Johnny Penn MD [address] [place] [id number] documented as of this encounter Visit Diagnoses Not on filedocumented in this encounter Additional Health Concerns Infection Onset Date Last Indicated Resolved Time Rule Out COVID-19 04/26/2022 04/26/2022 04/26/2022 6:47 AM CDT Rule Out COVID-19 05/17/2022 05/17/2022 05/17/2022 10:20 PM NURSE GENERAL DUTY Rule Out COVID-19 06/09/2022 06/09/2022 06/09/2022 9:35 AM NURSE GENERAL DUTY COVID-19 06/09/2022 06/09/2022 06/30/2022 11:4 1 PM NURSE GENERAL DUTY Rule Out COVID-19 11/10/2022 11/10/2022 11/11/2022 12:17 PM CDT Rule Out COVID-19 03/07/2023 03/07/2023 03/07/2023 1:20 PM CDT Rule Out COVID-19 12/26/2023 12/26/2023 12/26/2023 9:50 AM CDT Rule Out COVID-19 04/09/2024 04/09/2024 04/10/2024 6:48 PM CDT Assessment Noted Time PHQ-9 Depression Total Score: 2 12/19/19 2:50 PM CDT documented as of this encounter Care Teams Tong Hooker Relationship Specialty Start Date End Date Marija Edgar APRN DIESEL ENGINEER PCP - General Nurse Practitioner 04/30/20 04/14/23 Esha Grimm PA-C [address] [place] [phone] PCP - General Family Medicine 05/04/23 Lita Oseguera Personal Advocate & Liaison (PAL) 02/28/20 03/27/23 Marija Edgar APRN DIESEL ENGINEER Assigned PCP 06/08/20 04/29/23 Keisha Dotson MD 909 [place], [place] 492215 Assigned Neuroscience Provider 06/04/20 04/01/23 Diana Desir [facility] 30[address] [place], [place] 297296 Pharmacist Pharmacist 04/17/21 Rain Galaviz PA-C [address] [place] [address] [place] [address] Physician Gps Navigation Installer Dermatology 04/28/21 Tavia Wyatt MD [address] [place] [address] [place] [address] Dermatology 07/14/21 Erica Farrell APRN DIESEL ENGINEER [address] [place] [phone] [place] [address] Nurse Practitioner Cardiovascular Disease 09/09/21 Tavia Wyatt MD [address] [place] [address] Assigned Surgical Provider 11/29/21 05/07/22 Rich Barrett MD 516 [facility] 9[address] [place], [place] [address] Physician Ophthalmology 01/21/22 Neil Kent MD 500 [place] [address] Dermatology 02/24/22 Roney Story DPM [address] [facility] [address] [place] [address] Assigned Musculoskeletal Provider 03/20/22 08/13/22 Diana Desir, [facility] 30[address] [place] [address] Assigned MTM Pharmacist 04/07/22 Jelena David OD 3[address] [facility] [place] [address] Assigned Surgical Provider 05/08/22 10/08/22 Galo Burrell MD Assigned Heart and Vascular Provider 04/17/22 06/11/22 Livan Sharif MD [address], [facility] [address] [place] [address] Cardiovascular Disease 05/14/22 Livan Sharif MD [address], [facility] [address] [place] [address] Assigned Heart and Vascular Provider 06/12/22 07/23/22 Catherine Cm MD [address] [facility]00 [place] 6496[address] Cardiovascular Disease 07/21/22 Valery Veronica, PAUcheC [address] [place] [address] 329775 Physician Gps Navigation Installer Dermatology 07/21/22 Catherine Cm MD [address] [facility] [address] [place] 215385 Assigned Heart and Vascular Provider 07/24/22 11/05/22 Johnny Murillo MD [address] 277474 Assigned Musculoskeletal Provider 08/14/22 10/08/22 Brea Quinn APRN DIESEL ENGINEER [address] [place] [address] 351765 Nurse Practitioner Dermatology 09/21/22 Brea Quinn, ARLENE DIESEL ENGINEER [address] [place] [address] Assigned Surgical Provider 10/09/22 05/01/24 [place] [address] [place] [address] Assigned Musculoskeletal Provider 10/09/22 05/01/24 Livan Sharif MD [address] [facility] [address] [place] [address] Assigned Heart and Vascular Provider 11/06/22 11/12/22 Catherine Cm MD [address] [place] [address] [place] [address] Assigned Heart and Vascular Provider 11/13/22 05/27/23 Sydnie Martinez, RN Personal Advocate & Liaison (PAL) Family Medicine 03/28/23 07/31/23 Alfonso Renteria MD 5775 [facility] 200 [place] [address] Assigned Neuroscience Provider 04/02/23 Cheng Todd PA-C [address] [place] [address] [id number] Assigned PCP 04/30/23 07/15/23 Radha Lomeli APRN DIESEL ENGINEER [address] [place] 352685 Assigned Heart and Vascular Provider 05/28/23 Jelena David OD [address] [facility] [place] [address] MD Ophthalmology 06/15/23 Pao Joseph, RN Personal Advocate & Liaison (PAL) Nurse 08/01/23 11/07/23 Esha Grimm PA-C [address] [place] [address] Assigned PCP 07/16/23 Valery Veronica PA-C [address] [place] [address] 907035 Physician Gps Navigation Installer Dermatology 09/19/23 Rey Tay MD [address] [place] [address] 947515 MD Gastroenterology 09/20/23 Rocky Zepeda DO [address] [place] [address] 402635 Physician Gastroenterology 09/20/23 Philip Dumont MD [address] [place] [address] 690215 Physician Ophthalmology 09/22/23 Meredith Carrera PA-C [address] [place] [address] 773155 Assigned Gastroenterology Provider 11/01/23 Neil Kent MD [address] [address] Dermatology 11/02/23 [place] [address] [address] Neurological Surgery 12/26/23 Audrey Waite PAUcheC 500 [place] [address] Physician Gps Navigation Installer Dermatology 02/28/24 Valery Veronica PA-C [address] [place] [address] Physician Gps Navigation Installer Dermatology 04/10/24 Herminia Hatch MD [facility]5 [place] [address] Assigned Rheumatology Provider 07/02/24 documented as of this encounter
--- OUTSIDE RECORDS SUMMARY | 2024-08-28 19:03 | XMS_ITS | Encounter Summary ---
Author Organization [facility] Address [address] [place] [address] Care Team Providers Care Cnc Technician Name Role Phone Lita Oseguera Unavailable Unavailable Marija Edgar APRN LEAD LEVEL DESIGNER Primary Care Provider + Chanelle Mccann APRN CNM Unavailab le Kyara De La Fuente RN Unavailable [phone] Marija Edgar APRN LEAD LEVEL DESIGNER Unavailable Mynor Broussard MD Unavailable [phone] Keisha Dotson MD Unavailable Stacey Brionse AUTHOR Unavailable [phone] Lesley Guillermo CHW Unavailable Mary Mejia Unavailable Unavailable Lita Oseguera Unavailable Unavailable Galo Burrell MD Unavailable Unavailable Cristina Wood Unavailable Lesley Guillermo CHW Unavailable Meredith Bedoya Unavailable Unavailable Cristina Wood Unavailable Diana Desir [facility] Unavailable [phone] Rain Galaviz PA-C Unavailable Summer Lara MD Unavailable [phone] Summer Lara MD Unavailable +[phone] Summer Lara MD Unavailable +[phone] Tavia Wyatt MD Unavailable [phone] Johnny Murillo MD Unavailable +1- Erica Farrell APRN LEAD LEVEL DESIGNER Unavailable + Vikas Teresita Ka Walter H Unavailable Tavia Wyatt MD Unavailable [phone] Diana Desir [facility] Unavailable [phone] Rich Barrett MD Unavailable [phone] Neil Kent MD Unavailable Roney StoryM Unavailable [phone] Erica Farrell APRN LEAD LEVEL DESIGNER Unavailable + Diana Desir [facility] Unavailable +[phone] Jelena David OD Unavailable [phone] Galo Burrell MD Unavailable Unavailable Livan Sharif MD Unavailable + Livan Sharif MD Unavailable + Catherine Cm MD Unavailable + Valery Veronica PA-C Unavailable [phone] Catherine Cm MD Unavailable + Johnny Murillo MD Unavailable +1- Brea Quinn APRN LEAD LEVEL DESIGNER Unavailable +[phone] Brea Quinn APRN LEAD LEVEL DESIGNER Unavailable [phone] Jose Francisco Johnson MD Unavailable + Livan Sharif MD Unavailable + Catherine Cm MD Unavailable + Sydnie Martinez RN Unavailable Unavailable Alfonso Renteria MD Unavailable [phone] Esha Grimm PA-C Primary Care Provider [phone] Cheng Todd PA-C Unavailable Radha Lomeli APRN LEAD LEVEL DESIGNER Unavailable FrankieJelena OD Unavailable Pao Joseph RN Unavailable Unavailable Esha Grimm PA-C Unavailable [phone] Valery Veronica PA-C Unavailable Rey Tay MD Unavailable Rocky Zepeda DO Unavailable Philip Dumont MD Unavailable Meredith Carrera PA-C Unavailable Neil Kent MD Unavailable Juan Pablo Emmanuel MD Unavailable Audrey Waite PA-C Unavailable JeremíasValery damon PA-C Unavailable Herminia Hatch MD Unavailable Encounter Details Date Type Department Care Team (Late st Contact Info) Description 08/24/2020 MyC Medical Advice [facility] [id number] [place] [phone] Marija Edgar APRN LEAD LEVEL DESIGNER [address] [place] [address] Social History Tobacco [...] week 08/07/2020 How often do you attend [facility] or [facility] services? More than 4 [...] Answer Date Recorded PHQ-2 Score 0 08/12/2020 [place] [facility] - Occupational Stress [...] PM CDT Legal Sex Female 4:13 AM ELECTRONICS ENGINEERING TECHNICIAN Gender Identity Female 03/02/2021 5:45 PM CDT Sexual Orientation Straight 02/28/2020 12 :51 AM CDT COVID-19 Exposure Response Date Recorded In the last month, have you been in contact with someone who was confirmed or suspected to have Coronavirus / COVID-19? No / Unsure 08/20/2020 12:47 PM ELECTRONICS ENGINEERING TECHNICIAN documented as of this encounter Miscellaneous Notes * Telephone Encounter - Marija Edgar APRN CNP - 08/25/2020 11:47 AM ELECTRONICS ENGINEERING TECHNICIAN Replied via MyChart Marija Edgar APRN LEAD LEVEL DESIGNER on 08/25/2020 at 11:51 AM TRONICS ENGINEERING TECHNICIAN documented in this encounter Plan of Treatment Upcoming Encounters Date Type Department Care Team (Late st Contact Info) Description 10/23/2024 9:30 AM CDT Office Visit [facility] [address], [address] [place] [address] [place] [address] [place] [phone] Johnny Penn MD 0[address] [facility] [place] 3[address] documented as of this encounter Visit Diagnoses Not on filedocumented in this encounter Additional Health Concerns Infection Onset Date Last Indicated Resolved Time Rule Out COVID-19 08/30/2020 08/30/2020 08/30/2020 5:05 PM ELECTRONICS ENGINEERING TECHNICIAN Rule Out COVID-19 09/24/2020 09/24/2020 09/24/2020 9:24 AM CDT Rule Out COVID-19 11/05/2020 11/05/2020 11/06/2020 1:09 PM CDT Rule Out COVID-19 05/11/2021 05/11/2021 05/13/2021 10:18 AM CDT Rule Out COVID-19 07/13/2021 07/13/2021 07/14/2021 3:04 PM ELECTRONICS ENGINEERING TECHNICIAN Rule Out COVID-19 07/18/2021 07/18/2021 07/20/2021 1:56 PM ELECTRONICS ENGINEERING TECHNICIAN COVID-19 07/18/2021 07/18/2021 08/08/2021 11:3 9 PM ELECTRONICS ENGINEERING TECHNICIAN Rule Out COVID-19 12/18/2021 12/18/2021 12/19/2021 11:34 AM CDT Rule Out COVID-19 02/24/2022 02/24/2022 02/25/2022 1:08 PM CDT Rule Out COVID-19 04/26/2022 04/26/2022 04/26/2022 6:47 AM CDT Rule Out COVID-19 05/17/2022 05/17/2022 05/17/2022 10:20 PM ELECTRONICS ENGINEERING TECHNICIAN Rule Out COVID-19 06/09/2022 06/09/2022 06/09/2022 9:35 AM ELECTRONICS ENGINEERING TECHNICIAN COVID-19 06/09/2022 06/09/2022 06/30/2022 11:4 1 PM ELECTRONICS ENGINEERING TECHNICIAN Rule Out COVID-19 11/10/2022 11/10/2022 11/11/2022 12:17 PM CDT Rule Out COVID-19 03/07/2023 03/07/2023 03/07/2023 1:20 PM CDT Rule Out COVID-19 12/26/2023 12/26/2023 12/26/2023 9:50 AM CDT Rule Out COVID-19 04/09/2024 04/09/2024 04/10/2024 6:48 PM CDT Assessment Noted Time PHQ-9 Depression Total Score: 9 06/25/20 20 7:04 AM ELECTRONICS ENGINEERING TECHNICIAN documented as of this encounter Care Teams Cnc Technician Relationship Specialty Start Date End Date Marija Edgar APRN CNP PCP - General Nurse Practitioner 04/30/20 04/14/23 Esha Grimm PA-C [address] [place] [address] PCP - General Family Medicine 05/04/23 Lita Oseguera Personal Advocate & Liaison (PAL) 02/28/20 03/27/23 [place] [address] [address] [facility] 200 [place], [place] [address] Assigned OBGYN Provider 05/02/2005/09 Kyara De La Fuente, RN Specialty Trucking Contractor Neurology 06/04/20 03/05/21 Marija Edgar APRN LEAD LEVEL DESIGNER Assigned PCP 06/08/20 04/29/23 Mynor Broussard MD 6363 [facility] 500 [place], [place] [address]485 Assigned Surgical Provider 06/01/20 11/28/21 Keisha Dotson MD 9 [place], [place] [address] Assigned Neuroscience Provider 06/04/20 04/01/23 Stacey Briones, [facility] Lead Trucking Contractor Primary Care - CC 08/11/2012/30 Lesley Guillermo, [facility] Community Health Worker 08/11/2010/01 Mary Mejia Financial Resource Worker 09/02/20 10/06/20 Lita Oesguera Personal Advocate & Liaison (PAL) Family Medicine 09/10/20 09/21/20 Galo Burrell MD Assigned Heart and Vascular Provider 10/05/20 04/02/22 Cristina Wood Financial Resource Worker 10/07/20 10/14/20 Lesley Guillermo, [facility] Community Health Worker 10/23/2012/30 Meredith Bedoya Financial Resource Worker 10/23/20 11/23/20 AilynCristina younger Financial Resource Worker 02/09/21 02/09/21 Diana eDsir, [facility] [address] [facility] [place] [address] Pharmacist Pharmacist 04/17/21 Rain Galaviz PA-C [address] [facility] [place] [address] Physician Power Line Installer Dermatology 04/28/21 Summer Lara MD [address] [place] [address] Assigned OBGYN Provider 05/10/2105/23 Summer Lara MD [address] [place], [place] [address] Assigned OBGYN Provider 05/31/21 Summer Lara MD [address] [place] [address] Assigned OBGYN Provider 05/24/2105/30 Tavia Wyatt MD [address] [place], [place] [address] Dermatology 07/14/21 Johnny Murillo MD [address] [facility] [address] [place] [address] Assigned Musculoskeletal Provider 08/30/21 03/17/22 StoesErica youssef APRN LEAD LEVEL DESIGNER 6[address] [facility] [address] [place], [place] [address] Nurse Practitioner Cardiovascular Disease 09/09/21 Teresita Bean, [facility] [address] [place] [address] Pharmacist Pharmacist 09/24/21 09/29/21 Tavia Wyatt MD [address] [place] [address] Assigned Surgical Provider 11/29/21 05/07/22 [facility] 3033 [place] [address] Assigned MTM Pharmacist 01/02/22 Rich Barrett MD 516 [facility] [address] [place], [place] [address] Physician Ophthalmology 01/21/22 Neil Kent MD 500 [place], [place] 2534[address] Dermatology 02/24/22 Roney Story DPM [address] [facility] [address] [place] [address] Assigned Musculoskeletal Provider 03/20/22 08/13/22 Erica Farrell APRN LEAD LEVEL DESIGNER 1700 [place] [address] Assigned Heart and Vascular Provider 04/03/22 04/16/22 Diana Desir [facility] [address] [place], [place] [address] Assigned MTM Pharmacist 04/07/22 Jelena David OD [address] [facility] [place] [address] Assigned Surgical Provider 05/08/22 10/08/22 Galo Burrell MD Assigned Heart and Vascular Provider 04/17/22 06/11/22 Livan Sharif MD [address] [place] [id number] Cardiovascular Disease 05/14/22 Livan Sharif MD [address] [place] [address] Assigned Heart and Vascular Provider 06/12/22 07/23/22 Catherine Cm MD [address] [facility] [address] [place] [address] Cardiovascular Disease 07/21/22 Valery Veronica, PA-C 909 [place], [place] [address]395 Physician Power Line Installer Dermatology 07/21/22 Catherine Cm MD [address] [address] [place] 08[address]35 Assigned Heart and Vascular Provider 07/24/22 11/05/22 Johnny Murillo MD [address] [address] Assigned Musculoskeletal Provider 08/14/22 10/08/22 Brea Quinn APRN LEAD LEVEL DESIGNER 500 [facility] [place] [address] Nurse Practitioner Dermatology 09/21/22 Brea Quinn APRN LEAD LEVEL DESIGNER 6401 [place] [address] Assigned Surgical Provider 10/09/22 05/01/24 [place] [address] [facility] 300 [place] [address] Assigned Musculoskeletal Provider 10/09/22 05/01/24 Livan Sharif MD [address], [facility] [address] [place] [address] Assigned Heart and Vascular Provider 11/06/22 11/12/22 Catherine Cm MD [address] [facility] [address] [place], [place] [address] Assigned Heart and Vascular Provider 11/13/22 05/27/23 Sydnie Martinez RN Personal Advocate & Liaison (PAL) Family Medicine 03/28/23 07/31/23 Alofnso Renteria MD 5775 [facility] 200 [place] [address] Assigned Neuroscience Provider 04/02/23 Cheng Todd PA-C [address] [place] [address] [phone] Assigned PCP 04/30/23 07/15/23 Radha Lomeli APRN LEAD LEVEL DESIGNER [address] [place] [address] Assigned Heart and Vascular Provider 05/28/23 Jelena David OD [address] [facility] [place] [address] Ophthalmology 06/15/23 Pao Joseph, VJ Personal Advocate & Liaison (PAL) Nurse 08/01/23 11/07/23 Esha Grimm PA-C [address] [place] [phone] Assigned PCP 07/16/23 Valery Veronica PA-C [address] [place] [address] [id number] Physician Power Line Installer Dermatology 09/19/23 Rey Tay MD [address] [place] [address] [phone] Gastroenterology 09/20/23 Rocky Zepeda DO [address] [place] [address] 007095 Physician Gastroenterology 09/20/23 Philip Dumont MD [address] [place] [address] 164275 Physician Ophthalmology 09/22/23 Meredith Carrera PA-C [address] [place] [address] Assigned Gastroenterology Provider 11/01/23 Neil Kent MD [address] [address] Dermatology 11/02/23 [place] [address] [address] Neurological Surgery 12/26/23 Audrey Waite PA-C 500 [place] [address] Physician Power Line Installer Dermatology 02/28/24 Valery Veronica PA-C [id number] [address] [place] [address] Physician Power Line Installer Dermatology 04/10/24 Herminia Hatch MD [facility]5 [place], [place] [address] Assigned Rheumatology Provider 07/02/24 documented as of this encounter
--- OUTSIDE RECORDS SUMMARY | 2024-08-28 19:03 | XMS_ITS | Encounter Summary ---
Author Organization [facility] Address [address] [place] [address] Care Team Providers Care Mine Administrator Supervisor Name Role Phone Lita Oseguera Unavailable Unavailable Marija Edgar APRN OFFICE MESSENGER Primary Care Provider + Chanelle Mccann APRN CNM Unavailab le Kyara De La Fuente RN Unavailable [phone] Marija Edgar APRN OFFICE MESSENGER Unavailable Mynor Broussard MD Unavailable [phone] Keisha Dotson MD Unavailable Stacey Briones LINSEED CAKE TRIMMER Unavailable Lesley Guillermo CHW Unavailable Mary Mejia Unavailable Unavailable Lita Oseguera Unavailable Unavailable Galo Burrell MD Unavailable Unavailable Cristina Wood Unavailable Lesley Guillermo CHW Unavailable Meredith Bedoya Unavailable Unavailable Cristina Wood Unavailable Diana Desir [facility] Unavailable Rain Galaviz PA-C Unavailable Summer Lara MD Unavailable [phone] Summer Lara MD Unavailable +[phone] Summer Lara MD Unavailable +[phone] Tavia Wyatt MD Unavailable [phone] Johnny Murillo MD Unavailable +1- Erica Farrell APRN OFFICE MESSENGER Unavailable + Vikas Teresita Ka Walter H Unavailable Tavia Wyatt MD Unavailable +[phone] Diana Desir [facility] Unavailable [phone] Rich Barrett MD Unavailable [phone] Neil Kent MD Unavailable Roney StoryM Unavailable [phone] Erica Farrell APRN OFFICE MESSENGER Unavailable + Diana Desir [facility] Unavailable +[phone] Jelena David OD Unavailable [phone] Galo Burrell MD Unavailable Unavailable Livan Sharif MD Unavailable + Livan Sharif MD Unavailable + Catherine Cm MD Unavailable + Valery Veronica PA-C Unavailable +[phone] Catherine Cm MD Unavailable + Johnny Murillo MD Unavailable +1- Brea Quinn APRN OFFICE MESSENGER Unavailable +[phone] Brea Quinn APRN OFFICE MESSENGER Unavailable [phone] Jose Francisco Johnson MD Unavailable + Livan Sharif MD Unavailable + Catherine Cm MD Unavailable + Sydnie Martinez RN Unavailable Unavailable Alfonso Renteria MD Unavailable [phone] Esha Grimm PA-C Primary Care Provider Perez Chengjc Fish PA-C Unavailable Radha Lomeli APRN OFFICE MESSENGER Unavailable Jelena David OD Unavailable Pao Joseph RN Unavailable Unavailable Esha Grimm PA-C Unavailable [phone] Valery Veronica PA-C Unavailable Rey Tay [...] Contact Info) Description 09/08/2020 MyC Medical Advice [address] [address] Marija Edgar APRN OFFICE MESSENGER [address] [place] [address] MyChart Communication Social [...] 0 08/12/2020 [facility] - Occupational Stress [...] PM CDT Legal Sex Female 4:13 AM AUTOMATION QA ANALYST Gender Identity Female 03/02/2021 5:45 PM CDT Sexual Orientation Straight 02/28/2020 12 :51 AM CDT COVID-19 Exposure Response Date Recorded In the last month, have you been in contact with someone who was confirmed or suspected to have Coronavirus / COVID-19? No / Unsure 09/09/2020 10:09 AM AUTOMATION QA ANALYST documented as of this encounter Miscellaneous [...] RN, BSN Message handled by CLINIC NURSE.' MATION QA ANALYST * Telephone Encounter - Ever Cardozo MA - 09/09/2020 7:08 AM CST Triage, could you please see if results are posted yet in regards to patients ultrasound. Ever Cardozo BASIN CLEANER ([facility]) MATION QA ANALYST documented in this encounter Plan of Treatment Upcoming Encounters Date Type Department Care Team (Late st Contact Info) Description 10/23/2024 9:30 AM CDT Office Visit [facility] Neurology Clinics - [address], [address] [place] [address] [place] [address] [place] [address] Johnny Penn MD 05[address] [facility] [place] [address] documented as of this encounter Visit Diagnoses Not on filedocumented in this encounter Additional Health Concerns Infection Onset Date Last Indicated Resolved Time Rule Out COVID-19 09/24/2020 09/24/2020 09/24/2020 9:24 AM CDT Rule Out COVID-19 11/05/2020 11/05/2020 11/06/2020 1:09 PM CDT Rule Out COVID-19 05/11/2021 05/11/2021 05/13/2021 10:18 AM CDT Rule Out COVID-19 07/13/2021 07/13/2021 07/14/2021 3:04 PM AUTOMATION QA ANALYST Rule Out COVID-19 07/18/2021 07/18/2021 07/20/2021 1:56 PM AUTOMATION QA ANALYST COVID-19 07/18/2021 07/18/2021 08/08/2021 11:3 9 PM AUTOMATION QA ANALYST Rule Out COVID-19 12/18/2021 12/18/2021 12/19/2021 11:34 AM CDT Rule Out COVID-19 02/24/2022 02/24/2022 02/25/2022 1:08 PM CDT Rule Out COVID-19 04/26/2022 04/26/2022 04/26/2022 6:47 AM CDT Rule Out COVID-19 05/17/2022 05/17/2022 05/17/2022 10:20 PM AUTOMATION QA ANALYST Rule Out COVID-19 06/09/2022 06/09/2022 06/09/2022 9:35 AM AUTOMATION QA ANALYST COVID-19 06/09/2022 06/09/2022 06/30/2022 11:4 1 PM AUTOMATION QA ANALYST Rule Out COVID-19 11/10/2022 11/10/2022 11/11/2022 12:17 PM CDT Rule Out COVID-19 03/07/2023 03/07/2023 03/07/2023 1:20 PM CDT Rule Out COVID-19 12/26/2023 12/26/2023 12/26/2023 9:50 AM CDT Rule Out COVID-19 04/09/2024 04/09/2024 04/10/2024 6:48 PM CDT Assessment Noted Time PHQ-9 Depression Total Score: 9 06/25/20 20 7:04 AM AUTOMATION QA ANALYST documented as of this encounter Care Teams Mine Administrator Supervisor Relationship Specialty Start Date End Date Marija Edgar APRN OFFICE MESSENGER PCP - General Nurse Practitioner 04/30/20 04/14/23 Esha Grimm PA-C [address] [place] [phone] PCP - General Family Medicine 05/04/23 iLta Oseguera Personal Advocate & Liaison (PAL) 02/28/20 03/27/23 Chanelle Mccann APRN CNAdam [address] [facility] 200 [place] [address] Assigned OBGYN Provider 05/02/2005/09 Kyara De La Fuente, RN Specialty Outdoor Guide Neurology 06/04/20 03/05/21 Marija Edgar APRN OFFICE MESSENGER Assigned PCP 06/08/20 04/29/23 Mynor Broussard MD 6363 [facility] 500 [place] [address] Assigned Surgical Provider 06/01/20 11/28/21 Keisha Dotson MD 909 [place], [place] [address] Assigned Neuroscience Provider 06/04/20 04/01/23 Stacey Brinoes, LINSEED CAKE TRIMMER Lead Outdoor Guide Primary Care - CC 08/11/2012/30 Lesley Guillermo, CHW Community Health Worker 08/11/2010/01 Jackie Mary Financial Resource Worker 09/02/20 10/06/20 Lita Oseguera Personal Advocate & Liaison (PAL) Family Medicine 09/10/20 09/21/20 Galo Burrell MD Assigned Heart and Vascular Provider 10/05/20 04/02/22 Cristina Wood Financial Resource Worker 10/07/20 10/14/20 Lesley Guillermo, [facility] Community Health Worker 10/23/2012/30 Meredith Bedoya Financial Resource Worker 10/23/20 11/23/20 Cristina Wood Financial Resource Worker 02/09/21 02/09/21 Diana Desir, [facility] [address] [place] [address] [phone] Pharmacist Pharmacist 04/17/21 Rain Galaviz PA-C [address] [place] [address] [address] [place], [place] [phone] Physician Sales Support Assistant Dermatology 04/28/21 Summer Lara MD [address] [place] [address] [phone] Assigned OBGYN Provider 05/10/2105/23 Summer Lara MD [address] [place] [address] [phone] Assigned OBGYN Provider 05/31/21 2 Summer Lara MD [address] [place] [address] [phone] Assigned OBGYN Provider 05/24/2105/30 Tavia Wyatt MD [address] [place] [address] Dermatology 07/14/21 Johnny Murillo MD [address] [place] [address] Assigned Musculoskeletal Provider 08/30/21 03/17/22 Erica Farrell APRN OFFICE MESSENGER 6[address] [facility] [address] [place] [address] Nurse Practitioner Cardiovascular Disease 09/09/21 Teresita Bean [facility] 1440 [facility] [place], [place] [phone] Pharmacist Pharmacist 09/24/21 09/29/21 Tavia Wyatt MD [address] [place] [address] Assigned Surgical Provider 11/29/21 05/07/22 [facility] [address] [place] [address] Assigned MTM Pharmacist 01/02/22 Rich Barrett MD [address] [address] Physician Ophthalmology 01/21/22 Neil Kent MD 500 [place] [address] Dermatology 02/24/22 Roney Story DPM [address] [facility] [address] [place] [address] Assigned Musculoskeletal Provider 03/20/22 08/13/22 Erica Farrell APRN OFFICE MESSENGER 1700 [place] [address] Assigned Heart and Vascular Provider 04/03/22 04/16/22 [facility] 3033 [place] [address] Assigned MTM Pharmacist 04/07/22 Jelena David OD [address] [place] [address] Assigned Surgical Provider 05/08/22 10/08/22 Galo Burrell MD Assigned Heart and Vascular Provider 04/17/22 06/11/22 Livan Sharif MD [address] [place] [address] Cardiovascular Disease 05/14/22 Livan Sharif MD [address] [place] [address] Assigned Heart and Vascular Provider 06/12/22 07/23/22 Catherine Cm MD [address] [place] [address] Cardiovascular Disease 07/21/22 Valery Veronica, PAUcheC 909 [place] [address] Physician Sales Support Assistant Dermatology 07/21/22 Catherine Cm MD [address] [facility] [place] [address] Assigned Heart and Vascular Provider 07/24/22 11/05/22 Johnny Murillo MD [facility] [place] [address] Assigned Musculoskeletal Provider 08/14/22 10/08/22 Brea Quinn APRN OFFICE MESSENGER [address] [place] [address] [phone] Nurse Practitioner Dermatology 09/21/22 Brea Quinn APRN OFFICE MESSENGER [address] [place] [address] [place] [address] Assigned Surgical Provider 10/09/22 05/01/24 [place] [address] [address] Assigned Musculoskeletal Provider 10/09/22 05/01/24 Livan Sharif MD [address], [facility] [address] [place] 490795 Assigned Heart and Vascular Provider 11/06/22 11/12/22 Catherine Cm MD [address] [facility] [address] [place] [address] Assigned Heart and Vascular Provider 11/13/22 05/27/23 Sydnie Martinez, VJ Personal Advocate & Liaison (PAL) Family Medicine 03/28/23 07/31/23 Alfonso Renteria MD 5775 [facility] [address] 200 [place] [address] Assigned Neuroscience Provider 04/02/23 Cheng Todd PA-C [address] [place] [address] [phone] Assigned PCP 04/30/23 07/15/23 Radha Lomeli APRN OFFICE MESSENGER 6405 [facility] [address] [place] [address] Assigned Heart and Vascular Provider 05/28/23 Jelena David OD [address] [place] [address] Ophthalmology 06/15/23 Pao Joseph RN Personal Advocate & Liaison (PAL) Nurse 08/01/23 11/07/23 Esha Grimm PA-C [address] [place] [address] Assigned PCP 07/16/23 Valery Vreonica PA-C [address] [place] [address] [phone] Physician Sales Support Assistant Dermatology 09/19/23 Rey Tay MD [address] [place] [address] [id number] MD Gastroenterology 09/20/23 Rocky Zepeda DO 500 [place], [place] 18[address]25 Physician Gastroenterology 09/20/23 Philip Dumont MD 516 [place] [address] Physician Ophthalmology 09/22/23 Meredith Carrera PA-C 909 [place], [place] 484265 Assigned Gastroenterology Provider 11/01/23 Neil Kent MD [address] [address] MD Dermatology 11/02/23 [place] [address] 675067 Neurological Surgery 12/26/23 Audrey Waite PA-C 500 [place] [address] Physician Sales Support Assistant Dermatology 02/28/24 Valery Veronica PA-C 887033 [place] [address] Physician Sales Support Assistant Dermatology 04/10/24 Herminia Hatch MD [facility]5 [place] [address] Assigned Rheumatology Provider 07/02/24 documented as of this encounter
--- OUTSIDE RECORDS SUMMARY | 2024-08-28 19:03 | XMS_ITS | Encounter Summary ---
Author Organization [facility] Address [address] [place] [address] Care Team Providers Care Office Professionals Name Role Phone Lita Oseguera Unavailable Unavailable Marija Edgar APRN INFORMATION TECHNOLOGY PROJECT MANAGER Primary Care Provider + Marija Edgar APRN INFORMATION TECHNOLOGY PROJECT MANAGER Unavailable [phone] Keisha Dotson MD Unavailable Galo Burrell MD Unavailable Unavailable Diana Desir [facility] Unavailable Rain Galaviz PA-C Unavailable Summer Lara MD Unavailable [phone] Tavia Wyatt MD Unavailable Johnny Murillo MD Unavailable Erica Farrell APRN INFORMATION TECHNOLOGY PROJECT MANAGER Unavailable Tavia Wyatt MD Unavailable Diana Desir [facility] Unavailable Rich Barrett MD Unavailable Neil Kent MD Unavailable Roney Story DPM Unavailable [phone] Erica Farrell APRN INFORMATION TECHNOLOGY PROJECT MANAGER Unavailable + Diana Desir [facility] Unavailable Jelena David OD Unavailable Galo Burrell MD Unavailable Unavailable HoLivan MD Unavailable Livan Sharif MD Unavailable IskoCatherine boothe MD Unavailable + Valery Veronica PA-C Unavailable [phone] Catherine Cm MD Unavailable + Johnny Murillo MD Unavailable [phone] Brea Quinn STONE SETTER APPRENTICE INFORMATION TECHNOLOGY PROJECT MANAGER Unavailable [phone] Brea Quinn STONE SETTER APPRENTICE INFORMATION TECHNOLOGY PROJECT MANAGER Unavailable [phone] Jose Francisco Johnson MD Unavailable Livan Sharif MD Unavailable + IsCatherine boothe MD Unavailable + Sydnie Martinez RN Unavailable Unavailable Alfonso Renteria MD Unavailable Esha Grimm PA-C Primary Care Provider Cheng Todd PA-C Unavailable Radha Lomeli STONE SETTER APPRENTICE INFORMATION TECHNOLOGY PROJECT MANAGER Unavailable [phone] Jelena David OD Unavailable Pao Joseph RN Unavailable Unavailable Esha Grimm PA-C Unavailable [phone] Valery Veronica PA-C Unavailable [phone] Rey Tay MD Unavailable Rocky Zepeda DO Unavailable Philip Dumont MD Unavailable [phone] Meredith Carrera PA-C Unavailable [phone] Neil Kent MD Unavailable Juan Pablo Emmanuel MD Unavailable [phone] Audrey Waite PA-C Unavailable [phone] Valery Veronica PA-C Unavailable [phone] Herminia Hatch MD Unavailable Encounter Details Date Type Department Care Team (Late st Contact Info) Description 12/03/2021 MyC Medical Advice [address] [address] Debbie Hdez MA Social History [...] How often do you attend alevism or baptism serv ices? Never 09/22/2021 Do [...] Answer Date Recorded PHQ-2 Score 2 09/22/2021 [facility] - Occupational [...] in a residential (including now)? No 09/22/2021 [place] Depression Scale Answer Date Recorded [place] Depression Score 5 01/14/2021 Last EPDS Self Harm Result Not on file 01/14 Education Answer Date Recorded What is the highest level of school you have completed or the highest degree you have received? 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 FARM LOAN REPRESENTATIVE Gender Identity Female 03/02/2021 5:45 PM [...] CDT Office Visit [facility] Neurology [address], [address] [place] [address] [place] [address] [address] [place] 445117 Johnny Penn MD [address] [facility] [place] [id number] documented as of this encounter Visit Diagnoses Not on filedocumented in this encounter Additional Health Concerns Infection Onset Date Last Indicated Resolved Time Rule Out COVID-19 12/18/2021 12/18/2021 12/19/2021 11:34 AM CDT Rule Out COVID-19 02/24/2022 02/24/2022 02/25/2022 1:08 PM CDT Rule Out COVID-19 04/26/2022 04/26/2022 04/26/2022 6:47 AM CDT Rule Out COVID-19 05/17/2022 05/17/2022 05/17/2022 10:20 PM FARM LOAN REPRESENTATIVE Rule Out COVID-19 06/09/2022 06/09/2022 06/09/2022 9:35 AM FARM LOAN REPRESENTATIVE COVID-19 06/09/2022 06/09/2022 06/30/2022 11:4 1 PM FARM LOAN REPRESENTATIVE Rule Out COVID-19 11/10/2022 11/10/2022 11/11/2022 12:17 PM CDT Rule Out COVID-19 03/07/2023 03/07/2023 03/07/2023 1:20 PM CDT Rule Out COVID-19 12/26/2023 12/26/2023 12/26/2023 9:50 AM CDT Rule Out COVID-19 04/09/2024 04/09/2024 04/10/2024 6:48 PM CDT Assessment Noted Time PHQ-9 Depression Total Score: 2 04/02/20 10:19 AM CDT documented as of this encounter Care Teams Office Professionals Relationship Specialty Start Date End Date Marija Edgar APRN INFORMATION TECHNOLOGY PROJECT MANAGER PCP - General Nurse Practitioner 04/30/20 04/14/23 Esha Grimm PA-C [address] [place] [address] PCP - General Family Medicine 05/04/23 Lita Oseguera Personal Advocate & Liaison (PAL) 02/28/20 03/27/23 Marija Edgar APRN INFORMATION TECHNOLOGY PROJECT MANAGER Assigned PCP 06/08/20 04/29/23 Keisha Dotson MD [address] [place] [address] Assigned Neuroscience Provider 06/04/20 04/01/23 Galo Burrell MD Assigned Heart and Vascular Provider 10/05/20 04/02/22 Diana Desir, [facility] [address] [place] [address] Pharmacist Pharmacist 04/17/21 Rain Galaviz PA-C [address] [place] [address] [address] [place], [place] [phone] Physician Aquatics Director Dermatology 04/28/21 Summer Lara MD [address] [place] [address] 353024 Assigned OBGYN Provider 05/31/21 2 Tavia Wyatt MD [address] [place] [address] Dermatology 07/14/21 Johnny Murillo MD [facility] [place] [place], [place] 657244 Assigned Musculoskeletal Provider 08/30/21 03/17/22 Erica Farrell APRN INFORMATION TECHNOLOGY PROJECT MANAGER [address] [facility] [address] [place], [place] 827605 Nurse Practitioner Cardiovascular Disease 09/09/21 Tavia Wyatt MD [address] [place] [address] Assigned Surgical Provider 11/29/21 05/07/22 Diana Desir, [facility] [address] [place] [address] Assigned MTM Pharmacist 01/02/22 Rich Barrett MD [address] [phone] Physician Ophthalmology 01/21/22 Neil Kent MD 500 [place], [place] 231625 Dermatology 02/24/22 Roney Story DPM [address] [facility] [address] [place], [place] 573607 Assigned Musculoskeletal Provider 03/20/22 08/13/22 Erica Farrell APRN INFORMATION TECHNOLOGY PROJECT MANAGER [address] [place] [address] Assigned Heart and Vascular Provider 04/03/22 04/16/22 Diana Desir, [facility] [address] [place] [address] Assigned MTM Pharmacist 04/07/22 Jelena David OD [address] [place] [address] Assigned Surgical Provider 05/08/22 10/08/22 Galo Burrell MD Assigned Heart and Vascular Provider 04/17/22 06/11/22 Livan Sharif MD [address] [place] [address] Cardiovascular Disease 05/14/22 Livan Sharif MD [address] [place] [address] [place] [address] Assigned Heart and Vascular Provider 06/12/22 07/23/22 Catherine Cm MD [address] [address] [place] [address] Cardiovascular Disease 07/21/22 Valery Veronica, PA-C [address] [place] [address] 178295 Physician Aquatics Director Dermatology 07/21/22 Catherine Cm MD [address] [place] [address] Assigned Heart and Vascular Provider 07/24/22 11/05/22 Johnny Murillo MD [facility] [place] 039264 Assigned Musculoskeletal Provider 08/14/22 10/08/22 Brea Quinn APRN INFORMATION TECHNOLOGY PROJECT MANAGER [address] [place] [address] 693485 Nurse Practitioner Dermatology 09/21/22 Brea Quinn APRN INFORMATION TECHNOLOGY PROJECT MANAGER [address] [place] [address] [place] 982242 Assigned Surgical Provider 10/09/22 05/01/24 [place] [address] [place] [address] Assigned Musculoskeletal Provider 10/09/22 05/01/24 Livan Sharif MD [address] [place] [address] Assigned Heart and Vascular Provider 11/06/22 11/12/22 Catherine Cm MD [address] [place] [address] Assigned Heart and Vascular Provider 11/13/22 05/27/23 Sydnie Martinez RN Personal Advocate & Liaison (PAL) Family Medicine 03/28/23 07/31/23 Alfonso Renteria MD [address] [facility] 200 [place], [place] 218866 Assigned Neuroscience Provider 04/02/23 Cheng Todd PA-C [address] [place] [address] [phone] Assigned PCP 04/30/23 07/15/23 Radha Lomeli, STONE SETTER APPRENTICE INFORMATION TECHNOLOGY PROJECT MANAGER [address] [place] [address] Assigned Heart and Vascular Provider 05/28/23 Jelena David OD [address] [place] [address] Ophthalmology 06/15/23 Pao Joseph, VJ Personal Advocate & Liaison (PAL) Nurse 08/01/23 11/07/23 Esha Grimm PA-C [address] [place] [phone] Assigned PCP 07/16/23 Valery Veronica PA-C [address] [place] [address] 834325 Physician Aquatics Director Dermatology 09/19/23 Rey Tay MD [address] [place] [address] 989385 MD Gastroenterology 09/20/23 Rocky Zepeda DO [address] [place] [address] 800675 Physician Gastroenterology 09/20/23 Philip Dumont MD [address] [place] [address] 837995 Physician Ophthalmology 09/22/23 Meredith Carrera PA-C [address] [place] [address] 438365 Assigned Gastroenterology Provider 11/01/23 Neil Kent MD [address] [address] Dermatology 11/02/23 [place] [address] [place] [address] Neurological Surgery 12/26/23 Audrey Waite PA-C 500 [place] [address] Physician Aquatics Director Dermatology 02/28/24 Valery Veronica PA-C [address] [place] [address] Physician Aquatics Director Dermatology 04/10/24 Herminia Hatch MD [address] [place] [address] Assigned Rheumatology Provider 07/02/24 documented as of this encounter
--- OUTSIDE RECORDS SUMMARY | 2024-08-28 19:03 | XMS_ITS | Encounter Summary ---
Author Organization [facility] Address [address] [place] [address] Care Team Providers Care Production Drilling Machine Operator Name Role Phone Lita Oseguera Unavailable Unavailable Marija Edgar APRN RULING TECHNICIAN Primary Care Provider + Marija Edgar APRN RULING TECHNICIAN Unavailable [phone] Keisha Dotson MD Unavailable Galo Burrell MD Unavailable Unavailable Diana Desir [facility] Unavailable Rain Galaviz PA-C Unavailable Summer Lara MD Unavailable [phone] Tavia Wyatt MD Unavailable Johnny Murillo MD Unavailable Erica Farrell APRN RULING TECHNICIAN Unavailable Tavia Wyatt MD Unavailable Diana Desir [facility] Unavailable Rich Barrett MD Unavailable Neil Kent MD Unavailable Roney Story DPM Unavailable [phone] Erica Farrell APRN RULING TECHNICIAN Unavailable + Diana Desir [facility] Unavailable Jelena David OD Unavailable Galo Burrell MD Unavailable Unavailable HoLivan MD Unavailable Livan Sharif MD Unavailable IskoCatherine boothe MD Unavailable + Valery Veronica PA-C Unavailable [phone] Catherine Cm MD Unavailable + Johnny Murillo MD Unavailable [phone] Brea Quinn ELECTRICITY TRADING ANALYST RULING TECHNICIAN Unavailable [phone] Brea Quinn ELECTRICITY TRADING ANALYST RULING TECHNICIAN Unavailable [phone] Jose Francisco Johnson MD Unavailable Livan Sharif MD Unavailable + IsCatherine boothe MD Unavailable + Sydnie Martinez RN Unavailable Unavailable Alfonso Renteria MD Unavailable Esha Grimm PA-C Primary Care Provider Cheng Todd PA-C Unavailable Radha Lomeli ELECTRICITY TRADING ANALYST RULING TECHNICIAN Unavailable [phone] Jelena David OD Unavailable Pao Joseph RN Unavailable Unavailable Esha Grimm PA-C Unavailable [phone] Valery Veronica PA-C Unavailable [phone] Rey Tay MD Unavailable Rocky Zepeda DO Unavailable Philip Dumont MD Unavailable [phone] Meredith Carrera PA-C Unavailable Neil Kent MD Unavailable Juan Pablo Emmanuel MD Unavailable [phone] Audrey Waite PA-C Unavailable [phone] Valery Veronica PA-C Unavailable [phone] Herminia Hatch MD Unavailable Encounter Details Date Type Department Care Team (Late st Contact Info) Description 03/09/2022 MyC Medical Advice [address] [address] Abby Dye Social History Tobacco [...] How often do you attend sabianism or mandaen serv ices? Never 09/22/2021 Do [...] 12/18/2021 [facility] - Occupational Stress Questionnaire Answer Date [...] a group home (including now)? No 09/22/2021 [place] Depression Scale Answer Date Recorded [place] Depression Score 5 01/14/2021 Last EPDS Self Harm Result Not on file 01/14 Education Answer Date Recorded What is the highest level of school you have completed or the highest degree you have received? 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 CLUTCH MECHANIC Gender Identity Female 03/02/2021 5:45 PM [...] Office Visit [facility] Neurology [address], [address] [place] [address] [place] [address] [place] [address] Johnny Penn MD [address] [facility] [place] [address] documented as of this encounter Visit Diagnoses Not on filedocumented in this encounter Additional Health Concerns Infection Onset Date Last Indicated Resolved Time Rule Out COVID-19 04/26/2022 04/26/2022 04/26/2022 6:47 AM CDT Rule Out COVID-19 05/17/2022 05/17/2022 05/17/2022 10:20 PM CLUTCH MECHANIC Rule Out COVID-19 06/09/2022 06/09/2022 06/09/2022 9:35 AM CLUTCH MECHANIC COVID-19 06/09/2022 06/09/2022 06/30/2022 11:4 1 PM CLUTCH MECHANIC Rule Out COVID-19 11/10/2022 11/10/2022 11/11/2022 12:17 PM CDT Rule Out COVID-19 03/07/2023 03/07/2023 03/07/2023 1:20 PM CDT Rule Out COVID-19 12/26/2023 12/26/2023 12/26/2023 9:50 AM CDT Rule Out COVID-19 04/09/2024 04/09/2024 04/10/2024 6:48 PM CDT Assessment Noted Time PHQ-9 Depression Total Score: 2 12/19/19 2:50 PM CDT documented as of this encounter Care Teams Production Drilling Machine Operator Relationship Specialty Start Date End Date Marija Edgar APRN RULING TECHNICIAN PCP - General Nurse Practitioner 04/30/20 04/14/23 Esha Grimm PA-C [address] [place] [phone] PCP - General Family Medicine 05/04/23 Lita Oseguera Personal Advocate & Liaison (PAL) 02/28/20 03/27/23 Marija Edgar APRN RULING TECHNICIAN Assigned PCP 06/08/20 04/29/23 Keisha Dotson MD 909 [place] [address] Assigned Neuroscience Provider 06/04/20 04/01/23 Galo Burrell MD Assigned Heart and Vascular Provider 10/05/20 04/02/22 Diana Desir [facility] 3033 [place] [address] Pharmacist Pharmacist 04/17/21 Rain Galaviz PA-C [address] [place] [address] [place] [address] Physician Slubber Operator Dermatology 04/28/21 Summer Lara MD [address] [place] [address] 435004 Assigned OBGYN Provider 05/31/21 2 Tavia Wyatt MD [address] [place] [address] 788324 Dermatology 07/14/21 Johnny Murillo MD [address] [place] [address] Assigned Musculoskeletal Provider 08/30/21 03/17/22 Erica Farrell APRN [facility] [address] [place] [address] [address] [place] [address] Nurse Practitioner Cardiovascular Disease 09/09/21 Tavia Wyatt MD [facility] [address] [place], [place] [phone] Assigned Surgical Provider 11/29/21 05/07/22 Diana Desir [facility] 3033 [place] [address] Assigned MTM Pharmacist 01/02/22 Rich Barrett MD [address] 828355 Physician Ophthalmology 01/21/22 Neil Kent MD 500 [place], [place] 840975 Dermatology 02/24/22 Roney Story DPM [address] [facility] 300 [place] [address] Assigned Musculoskeletal Provider 03/20/22 08/13/22 Erica Farrell APRN RULING TECHNICIAN [address] [place] [address] Assigned Heart and Vascular Provider 04/03/22 04/16/22 Diana Desir [facility] [address] [place] [address] Assigned MTM Pharmacist 04/07/22 Jelena David OD [address] [facility] [place] [address] Assigned Surgical Provider 05/08/22 10/08/22 Galo Burrell MD Assigned Heart and Vascular Provider 04/17/22 06/11/22 Livan Sharif MD [address] [facility] [address] [place] [address] Cardiovascular Disease 05/14/22 Livan Sharif MD [address] [facility] [address] [place] [address] Assigned Heart and Vascular Provider 06/12/22 07/23/22 Catherine Cm MD [address] [facility] [place] 480385 Cardiovascular Disease 07/21/22 Valery Veronica, PAUcheC [address] [place] [address] 786695 Physician Slubber Operator Dermatology 07/21/22 Catherine Cm MD [address] [facility]00 [place] 134025 Assigned Heart and Vascular Provider 07/24/22 11/05/22 Johnny Murillo MD [facility]2 [address] 644414 Assigned Musculoskeletal Provider 08/14/22 10/08/22 Brea Quinn APRN RULING TECHNICIAN [address] [place] [address] 056795 Nurse Practitioner Dermatology 09/21/22 Brea Quinn APRN RULING TECHNICIAN [address] [place] [address] [place] 140252 Assigned Surgical Provider 10/09/22 05/01/24 [place] [address] [address] [place] [address] [place] 762117 Assigned Musculoskeletal Provider 10/09/22 05/01/24 Livan Sharif MD [address], [facility] [address] [place] 989525 Assigned Heart and Vascular Provider 11/06/22 11/12/22 Catherine Cm MD [address] [facility] [address] [place] [address] Assigned Heart and Vascular Provider 11/13/22 05/27/23 Sydnie Martinez, RN Personal Advocate & Liaison (PAL) Family Medicine 03/28/23 07/31/23 Alfonso Renteria MD 5775 [facility] 200 [place] [address] Assigned Neuroscience Provider 04/02/23 Cheng Todd PA-C [address] [place] [address] [id number] Assigned PCP 04/30/23 07/15/23 Radha Lomeli APRN RULING TECHNICIAN [address] [place] [address] Assigned Heart and Vascular Provider 05/28/[address] [facility]5 [facility] [place] [address] Ophthalmology 06/15/23 Pao Joseph, VJ Personal Advocate & Liaison (PAL) Nurse 08/01/23 11/07/23 Esha Grimm PAUcheC [address] [place] [phone] Assigned PCP 07/16/23 Valery Veronica PA-C 9 [place], [place] 142385 Physician Slubber Operator Dermatology 09/19/23 Rey Tay MD 9 [place], [place] 489935 MD Gastroenterology 09/20/23 Rocky Zepeda DO 500 [place], [place] 267715 Physician Gastroenterology 09/20/23 Philip Dumont MD [address] [place] [address] 432575 Physician Ophthalmology 09/22/23 Meredith Carrera PA-C 9 [place], [place] 839805 Assigned Gastroenterology Provider 11/01/23 Neil Kent MD [address] [address] Dermatology 11/02/23 [place] [address] [facility] [place] [address] Neurological Surgery 12/26/23 Audrey Waite PA-C 500 [place] [address] Physician Slubber Operator Dermatology 02/28/24 Valery Veronica PA-C [address] [place] [address] Physician Slubber Operator Dermatology 04/10/24 Herminia Hatch MD [address] [place] [address] Assigned Rheumatology Provider 07/02/24 documented as of this encounter
--- OUTSIDE RECORDS SUMMARY | 2024-08-28 19:03 | XMS_ITS | Encounter Summary ---
Author Organization [facility] Address [address] [place] [address] Care Team Providers Care Automotive Parts Specialist Name Role Phone Lita Oseguera Unavailable Unavailable Marija Edgar APRN POLICY DIRECTOR Primary Care Provider + Marija Edgar APRN POLICY DIRECTOR Unavailable [phone] Keisha Dotson MD Unavailable Galo Burrell MD Unavailable Unavailable Diana Desir [facility] Unavailable [phone] Rain Galaviz PA-C Unavailable Summer Lara MD Unavailable [phone] Tavia Wyatt MD Unavailable Johnny Murillo MD Unavailable Erica Farrell APRN POLICY DIRECTOR Unavailable Tavia Wyatt MD Unavailable Diana Desir [facility] Unavailable Rich Barrett MD Unavailable Neil Kent MD Unavailable Roney Story DPM Unavailable [phone] Erica Farrell APRN POLICY DIRECTOR Unavailable + Diana Desir [facility] Unavailable Jelena David OD Unavailable Galo Burrell MD Unavailable Unavailable HoLivan MD Unavailable Livan Sharif MD Unavailable IskoCatherine boothe MD Unavailable + Valery Veronica PA-C Unavailable [phone] Catherine Cm MD Unavailable + Johnny Murillo MD Unavailable [phone] Brea Quinn BEAN SPROUT LABORER POLICY DIRECTOR Unavailable [phone] Brea Quinn BEAN SPROUT LABORER POLICY DIRECTOR Unavailable [phone] Jose Francisco Johnson MD Unavailable Livan Sharif MD Unavailable + IsCatherine boothe MD Unavailable + Sydnie Martinez RN Unavailable Unavailable Alfonso Renteria MD Unavailable Esha Grimm PA-C Primary Care Provider Cheng Todd PA-C Unavailable Radha Lomeli BEAN SPROUT LABORER POLICY DIRECTOR Unavailable [phone] Jelena David OD Unavailable Pao Joseph RN Unavailable Unavailable Esha Grimm PA-C Unavailable [phone] Valery Veronica PA-C Unavailable [phone] Rey Tay MD Unavailable Rocky Zepeda DO Unavailable Philip Dumont MD Unavailable [phone] Meredith Carrera PA-C Unavailable Neil Kent MD Unavailable Juan Pablo Emmanuel MD Unavailable [phone] Audrey Waite PA-C Unavailable [phone] Valery Veronica PA-C Unavailable [phone] Herminia Hatch MD Unavailable Encounter Details Date Type Department Care Team (Late st Contact Info) Description 01/22/2022 MyC Medical Advice [address] [address] Diana Desir, [facility] [address] [place] [address] Social History Tobacco Use Types Packs/Day Years [...] How often do you attend anabaptist or jew serv ices? Never 09/22/2021 Do [...] a long term (including now)? No 09/22/2021 [place] Depression Scale Answer Date Recorded [place] Depression Score 5 01/14/2021 Last EPDS Self Harm Result Not on file 01/14 Education Answer Date Recorded What is the highest level of school you have completed or the highest degree you have received? 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 DRILL SERGEANT Gender Identity Female 03/02/2021 5:45 PM CDT [...] CDT Office Visit [facility] Neurology [address], [address] [place] [address] [place] [address] [address] [place] [phone] Johnny Penn MD [address] [place] [phone] documented as of this encounter Visit Diagnoses Not on filedocumented in this encounter Additional Health Concerns Infection Onset Date Last Indicated Resolved Time Rule Out COVID-19 02/24/2022 02/24/2022 02/25/2022 1:08 PM CDT Rule Out COVID-19 04/26/2022 04/26/2022 04/26/2022 6:47 AM CDT Rule Out COVID-19 05/17/2022 05/17/2022 05/17/2022 10:20 PM DRILL SERGEANT Rule Out COVID-19 06/09/2022 06/09/2022 06/09/2022 9:35 AM DRILL SERGEANT COVID-19 06/09/2022 06/09/2022 06/30/2022 11:4 1 PM DRILL SERGEANT Rule Out COVID-19 11/10/2022 11/10/2022 11/11/2022 12:17 PM CDT Rule Out COVID-19 03/07/2023 03/07/2023 03/07/2023 1:20 PM CDT Rule Out COVID-19 12/26/2023 12/26/2023 12/26/2023 9:50 AM CDT Rule Out COVID-19 04/09/2024 04/09/2024 04/10/2024 6:48 PM CDT Assessment Noted Time PHQ-9 Depression Total Score: 2 12/19/19 2:50 PM CDT documented as of this encounter Care Teams Automotive Parts Specialist Relationship Specialty Start Date End Date Marija Edgar APRN POLICY DIRECTOR PCP - General Nurse Practitioner 04/30/20 04/14/23 Esha Grimm PA-C [address] [place] [phone] PCP - General Family Medicine 05/04/23 Lita Oseguera Personal Advocate & Liaison (PAL) 02/28/20 03/27/23 Marija Edgar APRN POLICY DIRECTOR Assigned PCP 06/08/20 04/29/23 Keisha Dotson MD [address] [place] [address] Assigned Neuroscience Provider 06/04/20 04/01/23 Galo Burrell MD Assigned Heart and Vascular Provider 10/05/20 04/02/22 Diana Desir, [facility] [address] [place] [address] Pharmacist Pharmacist 04/17/21 Rain Galaviz PA-C [address] [place] [address] [place] [address] Physician Bar Roller Dermatology 04/28/21 Summer Lara MD [address] [place] [address] 094754 Assigned OBGYN Provider 05/31/21 2 Tavia Wyatt MD [address] [place] [address] [phone] Dermatology 07/14/21 Johnny Murillo MD [address] [place] [address] Assigned Musculoskeletal Provider 08/30/21 03/17/22 Erica Farrell APRN POLICY DIRECTOR [address] [facility] [address] [place], [place] [address] Nurse Practitioner Cardiovascular Disease 09/09/21 Tavia Wyatt MD [address] [place], [place] [phone] Assigned Surgical Provider 11/29/21 05/07/22 Diana Desir, [facility] [address] [place] [address] Assigned MTM Pharmacist 01/02/22 Rich Barrett MD [address] [address] Physician Ophthalmology 01/21/22 Neil Kent MD [address] [place] [address] Dermatology 02/24/22 [place] [address] [facility] 300 [place] [address] Assigned Musculoskeletal Provider 03/20/22 08/13/22 Erica Farrell APRN POLICY DIRECTOR [address] [place] [address] Assigned Heart and Vascular Provider 04/03/22 04/16/22 Diana Desir [facility] [address] [place] [address] Assigned MTM Pharmacist 04/07/22 Jelena David OD [facility] [place] [address] Assigned Surgical Provider 05/08/22 10/08/22 Galo Burrell MD Assigned Heart and Vascular Provider 04/17/22 06/11/22 Livan Sharif MD [address] [place] [address] Cardiovascular Disease 05/14/22 Livan Sharif MD [address] [place] [address] Assigned Heart and Vascular Provider 06/12/22 07/23/22 Catherine Cm MD [address] [place] [address] Cardiovascular Disease 07/21/22 Valery Veronica, PAUcheC [address] [place] [address] 668905 Physician Bar Roller Dermatology 07/21/22 Catherine Cm MD [address] [place] 086005 Assigned Heart and Vascular Provider 07/24/22 11/05/22 Johnny Murillo MD [address] 315574 Assigned Musculoskeletal Provider 08/14/22 10/08/22 Brea Quinn APRN POLICY DIRECTOR [address] [place] [address] 443865 Nurse Practitioner Dermatology 09/21/22 Brea Quinn APRN POLICY DIRECTOR [address] [place] [address] [place] [id number] Assigned Surgical Provider 10/09/22 05/01/24 [place] [address] [place] [address] Assigned Musculoskeletal Provider 10/09/22 05/01/24 Livan Sharif MD [address], [facility] [address] [place] [address] Assigned Heart and Vascular Provider 11/06/22 11/12/22 Catherine Cm MD [address] [place] [address] Assigned Heart and Vascular Provider 11/13/22 05/27/23 Sydnie Martinez RN Personal Advocate & Liaison (PAL) Family Medicine 03/28/23 07/31/23 Alfonso Renteria MD 5775 [facility] 200 [place], [place] 721096 Assigned Neuroscience Provider 04/02/23 Cheng Todd PA-C [address] [place] [address] [phone] Assigned PCP 04/30/23 07/15/23 Radha Lomeli, BEAN SPROUT LABORER POLICY DIRECTOR [address] [place] 278195 Assigned Heart and Vascular Provider 05/28/23 Jelena David OD [address] [place] [address] Ophthalmology 06/15/23 Pao Joseph VJ Personal Advocate & Liaison (PAL) Nurse 08/01/23 11/07/23 Esha Grimm PA-C [address] [place] [address] Assigned PCP 07/16/23 Valery Veronica PA-C [address] [place] [address] 443315 Physician Bar Roller Dermatology 09/19/23 Rey Tay MD [address] [place] [address] 423935 Gastroenterology 09/20/23 Rocky Zepeda DO [address] [place] [address] 577075 Physician Gastroenterology 09/20/23 Philip Dumont MD [address] [place] [address] 459915 Physician Ophthalmology 09/22/23 Meredith Carrera PA-C [address] [place] [address] Assigned Gastroenterology Provider 11/01/23 Neil Kent MD [address] [place] [address] Dermatology 11/02/23 [place] [address] [place] [address] Neurological Surgery 12/26/23 Audrey Waite PA-C [address] [place] [address] Physician Bar Roller Dermatology 02/28/24 Valery Veronica PA-C [address] [place] [address] Physician Bar Roller Dermatology 04/10/24 Herminia Hatch MD [address] [place] [address] Assigned Rheumatology Provider 07/02/24 documented as of this encounter
--- OUTSIDE RECORDS SUMMARY | 2024-08-28 19:03 | XMS_ITS | Encounter Summary ---
Author Organization [facility] Address [address] [place] [address] Care Team Providers Care Laundry Aide Name Role Phone Lita Oseguera Unavailable Unavailable Marija Edgar APRN WAREHOUSE PRICING AND 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 Primary Care Provider + Marija Edgar APRN WAREHOUSE PRICING AND 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 Unavailable [phone] Keisha Dotson MD Unavailable Diana Desir [facility] Unavailable [phone] Rain Galaviz PA-C Unavailable Tavia Wyatt MD Unavailable [phone] Erica Farrell APRN WAREHOUSE PRICING AND 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 Unavailable Tavia Wyatt MD Unavailable [phone] Rich Barrett MD Unavailable [phone] Neil Kent MD Unavailable Roney Story DPM Unavailable Erica Farrell APRN WAREHOUSE PRICING AND 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 Unavailable Diana Desir [facility] Unavailable [phone] Jelena David OD Unavailable [phone] Galo Burrell MD Unavailable Unavailable Livan Sharif MD Unavailable Livan Sharif MD Unavailable + Isfaby, Catherine Marques MD Unavailable + Valery Veronica PA-C Unavailable +[phone] IsraynaCatherine boothe MD Unavailable + Johnny Murillo MD Unavailable [phone] Brea Quinn SUPERVISOR ACCOUNTING CLERKS WAREHOUSE PRICING AND 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 Unavailable [phone] Brea Quinn SUPERVISOR ACCOUNTING CLERKS WAREHOUSE PRICING AND 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 Unavailable [phone] Jose Francisco Johnson MD Unavailable Livan Sharif MD Unavailable + Isfaby, Catherine Marques MD Unavailable + Sydnie Martinez RN Unavailable Unavailable Alfonso Renteria MD Unavailable [phone] Esha Grimm PA-C Primary Care Provider Cheng Todd PA-C Unavailable Radha Lomeli SUPERVISOR ACCOUNTING CLERKS WAREHOUSE PRICING AND 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 Unavailable [phone] Jelena David SONJA Unavailable Pao Joseph RN Unavailable Unavailable Esha Grimm PA-C Unavailable [phone] Valery Veronica PA-C Unavailable [phone] Rey Tay MD Unavailable Rocky Zepeda DO Unavailable Philip Dumont MD Unavailable [phone] Meredith Carrera PA-C Unavailable [phone] Neil Kent MD Unavailable Juan Pablo Emmanuel MD Unavailable Audrey Waite PA-C Unavailable [phone] Valery Veronica PA-C Unavailable [phone] Herminia Hatch MD Unavailable Encounter Details Date Type Department Care Team (Late st Contact Info) Description 04/07/2022 MyC Medical Advice [address] [address] Diana Desir, [facility] [address] [place] [address] Social History Tobacco Use Types Packs/Day Years [...] How often do you attend uatsdin or tenriism serv ices? Never 09/22/2021 Do you belong [...] Answer Date Recorded PHQ-2 Score 2 12/18/2021 [facility] [...] a long term (including now)? No 09/22/2021 [place] Depression Scale Answer Date Recorded [place] Depression Score 5 01/14/2021 Last EPDS Self Harm Result Not on file 01/14 Education Answer Date Recorded What is the highest level of school you have completed or the highest degree you have received? 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 SHOVEL MECHANIC Gender Identity Female 03/02/2021 5:45 PM [...] CDT Office Visit [facility] Neurology [address], [address] [place] [address] [place] [address] [address] [place] 910657 Johnny Penn MD [address] [place] [phone] documented as of this encounter Visit Diagnoses Not on filedocumented in this encounter Additional Health Concerns Infection Onset Date Last Indicated Resolved Time Rule Out COVID-19 04/26/2022 04/26/2022 04/26/2022 6:47 AM CDT Rule Out COVID-19 05/17/2022 05/17/2022 05/17/2022 10:20 PM SHOVEL MECHANIC Rule Out COVID-19 06/09/2022 06/09/2022 06/09/2022 9:35 AM SHOVEL MECHANIC COVID-19 06/09/2022 06/09/2022 06/30/2022 11:4 1 PM SHOVEL MECHANIC Rule Out COVID-19 11/10/2022 11/10/2022 11/11/2022 12:17 PM CDT Rule Out COVID-19 03/07/2023 03/07/2023 03/07/2023 1:20 PM CDT Rule Out COVID-19 12/26/2023 12/26/2023 12/26/2023 9:50 AM CDT Rule Out COVID-19 04/09/2024 04/09/2024 04/10/2024 6:48 PM CDT Assessment Noted Time PHQ-9 Depression Total Score: 2 12/19/19 2:50 PM CDT documented as of this encounter Care Teams Laundry Aide Relationship Specialty Start Date End Date Marija Edgar APRN WAREHOUSE PRICING AND 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 PCP - General Nurse Practitioner 04/30/20 04/14/23 Esha Grimm PA-C [address] [place] [phone] PCP - General Family Medicine 05/04/23 Lita Oseguera Personal Advocate & Liaison (PAL) 02/28/20 03/27/23 Marija Edgar APRN WAREHOUSE PRICING AND 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 Assigned PCP 06/08/20 04/29/23 Keisha Dotson MD [address] [place], [place] 690855 Assigned Neuroscience Provider 06/04/20 04/01/23 Diana Desir [facility] [address] [place], [place] 648[address] Pharmacist Pharmacist 04/17/21 Rain Galaviz PA-C [address] [place] [address] [address] [place] [address] Physician Box Shook Patcher Dermatology 04/28/21 Tavia Wyatt MD [address] [place] [address] [place] [address] Dermatology 07/14/21 Erica Farrell APRN WAREHOUSE PRICING AND 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 [address] [address] Nurse Practitioner Cardiovascular Disease 09/09/21 Tavia Wyatt MD [address] [place], [place] 890840 Assigned Surgical Provider 11/29/21 05/07/22 Rich Barrett MD [address] 285295 Physician Ophthalmology 01/21/22 Neil Kent MD [address] [place] [address] [phone] Dermatology 02/24/22 [place] [address] [facility] [address] [place], [place] 861847 Assigned Musculoskeletal Provider 03/20/22 08/13/22 Erica Farrell APRN WAREHOUSE PRICING AND 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 [address] [place] [address] Assigned Heart and Vascular Provider 04/03/22 04/16/22 Diana Desir, [facility] [address] [place], [place] 738896 Assigned MTM Pharmacist 04/07/22 Jelena David OD [address] [facility] [address] Assigned Surgical Provider 05/08/22 10/08/22 Galo Burrell MD Assigned Heart and Vascular Provider 04/17/22 06/11/22 Livan Sharif MD [address] [place] [address] Cardiovascular Disease 05/14/22 Livan Sharif MD [address], [address] [place] [address] Assigned Heart and Vascular Provider 06/12/22 07/23/22 Catherine Cm MD [address] [place], [place] 726045 Cardiovascular Disease 07/21/22 Valery Veronica, PAUcheC [address] [place], [place] 352315 Physician Box Shook Patcher Dermatology 07/21/22 Catherine Cm MD [address] [place] [address] Assigned Heart and Vascular Provider 07/24/22 11/05/22 Johnny Murillo MD [address] [place] [address] Assigned Musculoskeletal Provider 08/14/22 10/08/22 Brea Quinn APRN WAREHOUSE PRICING AND 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 [address] [facility] [place] [address] Nurse Practitioner Dermatology 09/21/22 Brea Quinn APRN WAREHOUSE PRICING AND 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 [facility] [place] MD 262452 Assigned Surgical Provider 10/09/22 05/01/24 [place] [address] [address] [facility] [address] [place], [place] [address] Assigned Musculoskeletal Provider 10/09/22 05/01/24 Livan Sharif MD [address], [facility] [address] [place] 300855 Assigned Heart and Vascular Provider 11/06/22 11/12/22 Catherine Cm MD [address] [facility] [address] [place], [place] 049885 Assigned Heart and Vascular Provider 11/13/22 05/27/23 Sydnie Martinez, RN Personal Advocate & Liaison (PAL) Family Medicine 03/28/23 07/31/23 Alfonso Renteria MD [address] [facility] 200 [place], [place] 150706 Assigned Neuroscience Provider 04/02/23 Cheng Todd PA-C [address] [place] [address] [phone] Assigned PCP 04/30/23 07/15/23 Lomeli Radha ARLENE Stovall WAREHOUSE PRICING AND 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 [address] [facility] [address] [place], [place] 175655 Assigned Heart and Vascular Provider 05/28/23 Jelena David OD [address] [place] [address] Ophthalmology 06/15/23 Pao Joseph, VJ Personal Advocate & Liaison (PAL) Nurse 08/01/23 11/07/23 Esha Grimm PA-C [address] [place] [phone] Assigned PCP 07/16/23 Valery Veronica PA-C [address] [place] [address] 578415 Physician Box Shook Patcher Dermatology 09/19/23 Rey Tay MD [address] [place] [address] [phone] Gastroenterology 09/20/23 Rocky Zepeda DO [address] [place] [address] 361855 Physician Gastroenterology 09/20/23 Philip Dumont MD [address] [place] [address] 974045 Physician Ophthalmology 09/22/23 Meredith Carrera PA-C [address] [place] [address] Assigned Gastroenterology Provider 11/01/23 Neil Ketn MD [address] [place] [address] Dermatology 11/02/23 [place] [address] [address] Neurological Surgery 12/26/23 Audrey Waite PA-C [address] [place] [address] Physician Box Shook Patcher Dermatology 02/28/24 Valery Veronica PA-C [address] [place] [address] Physician Box Shook Patcher Dermatology 04/10/24 Herminia Hatch MD [facility]5 [place] [address] Assigned Rheumatology Provider 07/02/24 documented as of this encounter
--- OUTSIDE RECORDS SUMMARY | 2024-08-28 19:03 | XMS_ITS | Encounter Summary ---
Author Organization [facility] Address [address] [place] [address] Care Team Providers Care Business Office Specialist Name Role Phone Lita Oseguera Unavailable Unavailable Marija Edgar APRN TOUR BUS DRIVER Primary Care Provider + Marija Edgar APRN TOUR BUS DRIVER Unavailable [phone] Keisha Dotson MD Unavailable [phone] Diana Desir [facility] Unavailable [phone] Rain Galaviz PA-C Unavailable Tavia Wyatt MD Unavailable Erica Farrell APRN TOUR BUS DRIVER Unavailable Tavia Wyatt MD Unavailable [phone] Rich Barrett MD Unavailable [phone] Neil Kent MD Unavailable Roney Story DPM Unavailable Diana Desir [facility] Unavailable [phone] Jelena David OD Unavailable Galo Burrell MD Unavailable Unavailable Livan Sharif MD Unavailable Livan Sharif MD Unavailable Catherine Cm MD Unavailable + Valery Veronica PA-C Unavailable Catherine Cm MD Unavailable + Johnny Murillo MD Unavailable [phone] Brea uQinn EXHIBIT ELECTRICIAN TOUR BUS DRIVER Unavailable [phone] Brea Quinn EXHIBIT ELECTRICIAN TOUR BUS DRIVER Unavailable [phone] Jose Francisco Johnson MD Unavailable Livan Sharif MD Unavailable Catherine Cm MD Unavailable + Sydnie Martinez RN Unavailable Unavailable Alfonso Renteria MD Unavailable [phone] Esha Grimm PA-C Primary Care Provider Cheng Todd PA-C Unavailable Radha Lomeli EXHIBIT ELECTRICIAN TOUR BUS DRIVER Unavailable Jelena David OD Unavailable Pao Joseph RN Unavailable Unavailable Esha Grimm PA-C Unavailable [phone] Valery Veronica PA-C Unavailable [phone] Rey Tay MD Unavailable Rocky Zepeda DO Unavailable Philip Dumont MD Unavailable Meredith Carrera PA-C Unavailable Neil Kent MD Unavailable Juan Pablo Emmanuel MD Unavailable Audrey Waite PA-C Unavailable Valery Veronica PA-C Unavailable Herminia Hatch MD [facility] Encounter Details Date Type Department Care Team (Late st Contact Info) Description 05/01/2022 MyC Medical Advice [address] [address] Thang Diana Stanislav, [facility] [address] [place] [address] Social History Tobacco Use Types Packs/Day Years [...] How often do you attend nondenominational or gnosticism serv ices? Never 09/22/2021 Do [...] Answer Date Recorded PHQ-2 Score 2 12/18/2021 [facility] of Occupat [...] in a penitentiary (including now)? No 09/22/2021 [place] Depression Scale Answer Date Recorded [place] Depression Score 5 01/14/2021 Last EPDS Self Harm Result Not on file 01/14 Education Answer Date Recorded What is the highest level of school you have completed or the highest degree you have received? 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 SHELVING SUPERVISOR Gender Identity Female 03/02/2021 5:45 PM [...] AM CDT Office Visit [facility] [address], [address] [place] [address] [place] [address] [place] [id number] Johnny Penn MD 7595 [facility] [place] [id number] documented as of this encounter Visit Diagnoses Not on filedocumented in this encounter Additional Health Concerns Infection Onset Date Last Indicated Resolved Time Rule Out COVID-19 05/17/2022 05/17/2022 05/17/2022 10:20 PM SHELVING SUPERVISOR Rule Out COVID-19 06/09/2022 06/09/2022 06/09/2022 9:35 AM SHELVING SUPERVISOR COVID-19 06/09/2022 06/09/2022 06/30/2022 11:4 1 PM SHELVING SUPERVISOR Rule Out COVID-19 11/10/2022 11/10/202211/11/2022 12:17 PM CDT Rule Out COVID-19 03/07/2023 03/07/2023 03/07/2023 1:20 PM CDT Rule Out COVID-19 12/26/2023 12/26/2023 12/26/2023 9:50 AM CDT Rule Out COVID-19 04/09/2024 04/09/2024 04/10/2024 6:48 PM CDT Assessment Noted Time PHQ-9 Depression Total Score: 2 12/19/19 2:50 PM CDT documented as of this encounter Care Teams Business Office Specialist Relationship Specialty Start Date End Date Marija Edgar APRN TOUR BUS DRIVER PCP - General Nurse Practitioner 04/30/20 04/14/23 Esha Grimm PA-C [address] [place] [address] PCP - General Family Medicine 05/04/23 Lita Oseguera Personal Advocate & Liaison (PAL) 02/28/20 03/27/23 Marija Edgar APRN TOUR BUS DRIVER Assigned PCP 06/08/20 04/29/23 Keisha Dotson MD [address] [place], [place] 617[address] Assigned Neuroscience Provider 06/04/20 04/01/23 Diana Desir [facility] [address] [place], [place] 599[address] Pharmacist Pharmacist 04/17/21 Rain Galaviz PA-C [address] [place] [address] [place] [address] Physician Vat Washer Dermatology 04/28/21 Tavia Wyatt MD [address] [place] [address] [place] [address] Dermatology 07/14/21 Erica Farrell APRN TOUR BUS DRIVER 6405 [facility] [address] [place] [address] Nurse Practitioner Cardiovascular Disease 09/09/21 Tavia Wyatt MD [address] [place] [address] Assigned Surgical Provider 11/29/21 05/07/22 Rich Barrett MD 516 [facility] [address] [place] [address] Physician Ophthalmology 01/21/22 Neil Kent MD 500 [place] [address] Dermatology 02/24/22 Roney Story DPM 7[address] [facility] [address] [place], [place] 152247 Assigned Musculoskeletal Provider 03/20/22 08/13/22 Diana Desir, [facility] [address] [place], [place] 119506 Assigned MTM Pharmacist 04/07/22 Jelena David OD [address] [facility] [place] [address] Assigned Surgical Provider 05/08/22 10/08/22 Galo Burrell MD Assigned Heart and Vascular Provider 04/17/22 06/11/22 Livan Sharif MD [address] [place] [address] Cardiovascular Disease 05/14/22 Livan Sharif MD [address] [place] [address] Assigned Heart and Vascular Provider 06/12/22 07/23/22 Catheirne mC MD [address] [place], [place] 512035 Cardiovascular Disease 07/21/22 Valery Veroncia PAUcheC [address] [place] [address] 131795 Physician Vat Washer Dermatology 07/21/22 Catherine Cm MD [address] [place], [place] 764295 Assigned Heart and Vascular Provider 07/24/22 11/05/22 Johnny Murillo MD [address] [phone] Assigned Musculoskeletal Provider 08/14/22 10/08/22 Brea Quinn APRN TOUR BUS DRIVER [address] [place] [address] 014715 Nurse Practitioner Dermatology 09/21/22 Brea Quinn, EXHIBIT ELECTRICIAN TOUR BUS DRIVER [address] [place] [address] Assigned Surgical Provider 10/09/22 05/01/24 [place] [address] [place] [facility] [address] [place] [address] Assigned Musculoskeletal Provider 10/09/22 05/01/24 Livan Sharif MD [address] [place] [address] Assigned Heart and Vascular Provider 11/06/22 11/12/22 Catherine Cm MD [address] [place] [address] Assigned Heart and Vascular Provider 11/13/22 05/27/23 Sydnie Martinez, RN Personal Advocate & Liaison (PAL) Family Medicine 03/28/23 07/31/23 Alfonso Renteria MD 5775 [facility] 200 [place] [address] Assigned Neuroscience Provider 04/02/23 Cheng Todd PA-C [address] [place] [address] [phone] Assigned PCP 04/30/23 07/15/23 Radha Lomeli APRN TOUR BUS DRIVER [address] [place] [address] Assigned Heart and Vascular Provider 05/28/23 Jelena David OD [address] [facility] [place] [address] Ophthalmology 06/15/23 Pao Joseph, RN Personal Advocate & Liaison (PAL) Nurse 08/01/23 11/07/23 Esha Grimm PA-C [address] [place] [phone] Assigned PCP 07/16/23 Valery Veronica PA-C [address] [place] [address] 371945 Physician Vat Washer Dermatology 09/19/23 Rey Tay MD [address] [place] [address] 837015 MD Gastroenterology 09/20/23 Rocky Zepeda DO [address] [place] [address] 306855 Physician Gastroenterology 09/20/23 Philip Dumont MD [address] [place] [address] 494545 Physician Ophthalmology 09/22/23 Meredith Carrera PA-C [address] [place] [address] 273415 Assigned Gastroenterology Provider 11/01/23 Neil Kent MD [address] [address] Dermatology 11/02/23 [place] [address] [place] [address] Neurological Surgery 12/26/23 Audrey Waite PA-C 500 [place] [address] Physician Vat Washer Dermatology 02/28/24 Valery Veronica PA-C [address] [place] [address] Physician Vat Washer Dermatology 04/10/24 Herminia Hatch MD [address] [place] [address] Assigned Rheumatology Provider 07/02/24 documented as of this encounter
--- OUTSIDE RECORDS SUMMARY | 2024-08-28 19:03 | XMS_ITS | Encounter Summary ---
Author Organization [facility] Address [address] [place] [address] Care Team Providers Care Densitometer Reader Name Role Phone Lita Oseguera Unavailable Unavailable Marija Edgar APRN DRAFTER CIVIL ENGINEERING Primary Care Provider + Chanelle Mccann APRN CNM Unavailab le Kyara De La Fuente RN Unavailable [phone] Marija Edgar APRN DRAFTER CIVIL ENGINEERING Unavailable Mynor Broussard MD Unavailable [phone] Keisha Dotson MD Unavailable Stacey Briones CHECK CASHIER Unavailable [phone] Lesley Guillermo CHW Unavailable Mary Mejia Unavailable Unavailable Lita Oseguera Unavailable Unavailable Galo Burrell MD Unavailable Unavailable Cristina Wood Unavailable Lesley Guillermo CHW Unavailable Meredith Bedoya Unavailable Unavailable Cristina Wood Unavailable Diana Desir [facility] Unavailable [phone] Rain Galaviz PA-C Unavailable Summer Lara MD Unavailable [phone] Summer Lara MD Unavailable [phone] Summer Lara MD Unavailable [phone] Tavia Wyatt MD Unavailable [phone] Johnny Murillo MD Unavailable +1- Erica Farrell APRN DRAFTER CIVIL ENGINEERING Unavailable + Vikas Teresita Ka Walter H Unavailable Tavia Wyatt MD Unavailable [phone] Diana Desir [facility] Unavailable [phone] Rich Barrett MD Unavailable [phone] Neil Kent MD Unavailable Roney StoryM Unavailable [phone] Erica Farrell APRN DRAFTER CIVIL ENGINEERING Unavailable + Diana Desir [facility] Unavailable [phone] Jelena David OD Unavailable [phone] Galo Burrell MD Unavailable Unavailable Livan Sharif MD Unavailable + Livan Sharif MD Unavailable + Catherine Cm MD Unavailable + Valery Veronica PA-C Unavailable [phone] Catherine Cm MD Unavailable + Johnny Murillo MD Unavailable +1- Brea Quinn APRN DRAFTER CIVIL ENGINEERING Unavailable +[phone] Brea Quinn APRN DRAFTER CIVIL ENGINEERING Unavailable [phone] Jose Francisco Johnson MD Unavailable + Livan Sharif MD Unavailable + Catherine Cm MD Unavailable + Sydnie Martinez RN Unavailable Unavailable Alfonso Renteria MD Unavailable [phone] Esha Grimm PA-C Primary Care Provider Perez Chengjc Fish PA-C Unavailable LomeliRadha APRN DRAFTER CIVIL ENGINEERING Unavailable Jelena David OD Unavailable Pao Joseph RN Unavailable Unavailable Esha Grimm PA-C Unavailable [phone] Valery Veronica PA-C Unavailable Rey Tay MD Unavailable Rocky Zepeda DO Unavailable Philip Dumont MD Unavailable Meredith Carrera PA-C Unavailable Neil Kent MD Unavailable Juan Pablo Emmanuel MD Unavailable [phone] Audrey Waite PA-C Unavailable [phone] Valery Veronica PA-C Unavailable [phone] Herminia Hatch MD Unavailable Encounter Details Date Type Department Care Team (Late st Contact Info) Description 09/02/2020 MyC Medical Advice [facility] Care Coordination [facility] [address] [place] [address] Mary Mejia Social History Tobacco Use Types [...] Date Recorded PHQ-2 Score 0 08/12/2020 [facility] [place] of Occupat ional Health - Occupational Stress [...] COVID-19? No / Unsure 09/05/2020 2:50 PM BOILER MAKER documented as of this encounter Plan of Treatment Upcoming Encounters Date Type Department Care Team (Late st Contact Info) Description 10/23/2024 9:30 AM CDT Office Visit [facility] Neurology [facility] [address] [facility], [address] [place] [address] [place] [address] [place], [place] [address] Johnny Penn MD [address] [place] 694195 documented as of this encounter Visit Diagnoses [...] Total Score: 9 06/25/20 20 7:04 AM BOILER MAKER documented as of this encounter Care Teams Densitometer Reader Relationship Specialty Start Date End Date Marija Edgar APRN DRAFTER CIVIL ENGINEERING PCP - General Nurse Practitioner 04/30/20 04/14/23 Esha Grimm PA-C [address] [place] [phone] PCP - General Family Medicine 05/04/23 Lita Oseguera Personal Advocate & Liaison (PAL) 02/28/20 03/27/23 Chanelle Mccann APRN CNM [address] [address] Assigned OBGYN Provider 05/02/2005/09 Kyara De La Fuente, RN Specialty Business Editor Neurology 06/04/20 03/05/21 Marija Edgar APRN DRAFTER CIVIL ENGINEERING Assigned PCP 06/08/20 04/29/23 Mynor Broussard MD 6363 [facility] 500 [place] [address] Assigned Surgical Provider 06/01/20 11/28/21 Keisha Dotson MD [address] [place] [address] Assigned Neuroscience Provider 06/04/20 04/01/23 Stacey Briones, [facility] Lead Business Editor Primary Care - CC 08/11/2012/30 Lesley Guillermo, [facility] Community Health Worker 08/11/2010/01 Mary Mejia Financial Resource Worker 09/02/20 10/06/20 Lita Oseguera Personal Advocate & Liaison (PAL) Family Medicine 09/10/20 09/21/20 Galo Burrell MD Assigned Heart and Vascular Provider 10/05/20 04/02/22 Cristina Wood Financial Resource Worker 10/07/20 10/14/20 Lesley Guillermo, [facility] Community Health Worker 10/23/2012/30 Meredith Bedoya Financial Resource Worker 10/23/20 11/23/20 Cristina Wood Financial Resource Worker 02/09/21 02/09/21 Diana Desir, [facility] [address] [place] [address] Pharmacist Pharmacist 04/17/21 Rain Galaviz PA-C [address] [place] [address] [address] [place] [address] Physician Nurse Chemical Dependency Dermatology 04/28/21 Summer Lara MD [address] [place], [place] 723[address] Assigned OBGYN Provider 05/10/2105/23 Summer Lara MD [address] [place], [place] [address] Assigned OBGYN Provider 05/31/21 Summer Lara MD [address] [place], [place] 0[address] Assigned OBGYN Provider 05/24/2105/30 Tavia Wyatt MD [address] [facility] [place], [place] 9137[address] Dermatology 07/14/21 Johnny Murillo MD [address] [facility] [address] [place], [place] 603204 Assigned Musculoskeletal Provider 08/30/21 03/17/22 Erica Farrell APRN DRAFTER CIVIL ENGINEERING 6405 [facility] [address] [place] 755265 Nurse Practitioner Cardiovascular Disease 09/09/21 Teresita Bean [facility] [address] [phone] Pharmacist Pharmacist 09/24/21 09/29/[address] [facility] [place], [place] 215090 Assigned Surgical Provider 11/29/21 05/07/22 Diana Desir, [facility] [address] [place] [address] Assigned MTM Pharmacist 01/02/22 Rich Barrett MD [address] 763065 Physician Ophthalmology 01/21/22 Neil Kent MD 500 [place], [place] 908435 Dermatology 02/24/22 Roney Story DPM [address] [facility] [address] [place] [address] Assigned Musculoskeletal Provider 03/20/22 08/13/22 Erica Farrell APRN DRAFTER CIVIL ENGINEERING 1700 [place] [address] Assigned Heart and Vascular Provider 04/03/22 04/16/22 Diana Desir, [facility] [address] [place] [address] Assigned MTM Pharmacist 04/07/22 Jelena David OD [address] [facility] [place] [address] Assigned Surgical Provider 05/08/22 10/08/22 Galo Burrell MD Assigned Heart and Vascular Provider 04/17/22 06/11/22 Livan Sharif MD [address], [facility] [address] [place] [address] Cardiovascular Disease 05/14/22 Livan Sharif MD [address], [place] [address] Assigned Heart and Vascular Provider 06/12/22 07/23/22 Catherine Cm MD [address] [place] [address] Cardiovascular Disease 07/21/22 Valery Veronica, PA-C [address] [place] [address] Physician Nurse Chemical Dependency Dermatology 07/21/22 Catherine Cm MD [address] [facility] [address] [place] [address] Assigned Heart and Vascular Provider 07/24/22 11/05/22 Johnny Murillo MD [address] [place] [address] 390414 Assigned Musculoskeletal Provider 08/14/22 10/08/22 Brea Quinn APRN DRAFTER CIVIL ENGINEERING [address] [place] [address] 755085 Nurse Practitioner Dermatology 09/21/22 Brea Quinn APRN DRAFTER CIVIL ENGINEERING [address] [place] [address] [place] 415812 Assigned Surgical Provider 10/09/22 05/01/24 [place] [address] [place] [address] Assigned Musculoskeletal Provider 10/09/22 05/01/24 Livan Sharif MD [address] [place] [address] Assigned Heart and Vascular Provider 11/06/22 11/12/22 Catherine Cm MD [address] [address] [place] [address] Assigned Heart and Vascular Provider 11/13/22 05/27/23 Sydnie Martinez RN Personal Advocate & Liaison (PAL) Family Medicine 03/28/23 07/31/23 Alfonso Renteria MD 5775 [facility] 200 [place] [address] Assigned Neuroscience Provider 04/02/23 Cheng Todd PA-C [address] [place] [address] [id number] Assigned PCP 04/30/23 07/15/23 Radha Lomeli, ARLENE DRAFTER CIVIL ENGINEERING [address] [place] [address] Assigned Heart and Vascular Provider 05/28/23 Jelena David OD [address] [facility] [place] [address] Ophthalmology 06/15/23 Pao Joseph RN Personal Advocate & Liaison (PAL) Nurse 08/01/23 11/07/23 Esha Grimm PA-C [address] [place] [address] Assigned PCP 07/16/23 Valery Veronica PA-C [address] [place] [address] 855815 Physician Nurse Chemical Dependency Dermatology 09/19/23 Rey Tay MD [address] [place] [address] 757315 MD Gastroenterology 09/20/23 Rocky Zepeda DO [address] [place] [address] 950695 Physician Gastroenterology 09/20/23 Philip Dumont MD [address] [place] [address] 434645 Physician Ophthalmology 09/22/23 Meredith Carrera PA-C [address] [place] [address] Assigned Gastroenterology Provider 11/01/23 Neil Kent MD [address] [address] Dermatology 11/02/23 [place] [address] [place] [address] Neurological Surgery 12/26/23 Audrey Waite PA-C 500 [place] [address] Physician Nurse Chemical Dependency Dermatology 02/28/24 Valery Veronica PA-C [address] [place] [address] Physician Nurse Chemical Dependency Dermatology 04/10/24 Herminia Hatch MD [address] [place] [address] [phone] Assigned Rheumatology Provider 07/02/24 documented as of this encounter
--- OUTSIDE RECORDS SUMMARY | 2024-08-28 19:03 | XMS_ITS | Encounter Summary ---
Author Organization [facility] Address [address] [place] [address] Care Team Providers Care Dishwasher Busser Name Role Phone Lita Oseguera Unavailable Unavailable Marija Edgar APRN ODD SHOE EXAMINER Primary Care Provider + Chanelle Mccann APRN CNM Unavailab le Kyara De La Fuente RN Unavailable [phone] Marija Edgar APRN ODD SHOE EXAMINER Unavailable Mynor Broussard MD Unavailable [phone] Keisha Dotson MD Unavailable Stacey Briones LINSEED OIL REFINER Unavailable Lesley Guillermo CHW Unavailable Mary Mejia Unavailable Unavailable Lita Oseguera Unavailable Unavailable Galo Burrell MD Unavailable Unavailable Cristina Wood Unavailable Lesley Guillermo CHW Unavailable Meredith Bedoya Unavailable Unavailable Cristina Wood Unavailable Diana Desir [facility] Unavailable [phone] Rain Galaviz PA-C Unavailable Summer Lara MD Unavailable [phone] Summer Lara MD Unavailable [phone] Summer Lara MD Unavailable [phone] Tavia Wyatt MD Unavailable [phone] Johnny Murillo MD Unavailable +1- Erica Farrell APRN ODD SHOE EXAMINER Unavailable + Vikas Teresita Ka Walter H Unavailable Tavia Wyatt MD Unavailable [phone] Diana Desir [facility] Unavailable [phone] Rich Barrett MD Unavailable [phone] Neil Kent MD Unavailable Roney StoryM Unavailable [phone] Erica Farrell APRN ODD SHOE EXAMINER Unavailable + Diana Desir [facility] Unavailable [phone] Jelena David OD Unavailable [phone] Galo Burrell MD Unavailable Unavailable Livan Sharif MD Unavailable + Livan Sharif MD Unavailable + Catherine Cm MD Unavailable + Valery Veronica PA-C Unavailable [phone] Catherine Cm MD Unavailable + Johnny Murillo MD Unavailable +1- Bera Quinn APRN ODD SHOE EXAMINER Unavailable +[phone] Brea Quinn APRN ODD SHOE EXAMINER Unavailable [phone] Jose Francisco Johnson MD Unavailable + Livan Sharif MD Unavailable + Catherine Cm MD Unavailable + Sydnie Martinez RN Unavailable Unavailable Alfonso Renteria MD Unavailable [phone] Esha Grimm PA-C Primary Care Provider Perez Chengjc Fish PA-C Unavailable Radha Lomeli APRN ODD SHOE EXAMINER Unavailable Jelena David OD Unavailable Pao Joseph RN Unavailable Unavailable Esha Grimm PA-C Unavailable [phone] Valery Veronica PA-C Unavailable [phone] Rey Tay MD Unavailable Rocky Zepeda DO Unavailable Philip Dumont MD Unavailable Meredith Carrera PA-C Unavailable Neil Kent MD Unavailable Juan Pablo Emmanuel MD Unavailable [phone] Audrey Waite PA-C Unavailable JeremíasValery damon PA-C Unavailable [phone] Herminia Hatch MD Unavailable Reason for Visit * Reason Onset Date Comments MyChart Communication 09/02/2020 Encounter Details Date Type Department Care Team (Latest Contact Info) Description 09/02/2020 MyC Medical Advice [address] [address] Marija Edgar APRN ODD SHOE EXAMINER [address] [place] [phone] MyChart Communication Social [...] do you attend chur or denominational services? More than 4 times [...] Answer Date Recorded PHQ-2 Score 0 08/12/2020 [facility] Occupational Stress [...] CDT Legal Sex Female 4:13 AM HAND TUFTER Gender Identity Female 03/02/2021 5:45 PM CDT Sexual Orientation Straight 02/28/2020 12 :51 AM CDT COVID-19 Exposure Response Date Recorded In the last month, have you been in contact with someone who was confirmed or suspected to have Coronavirus / COVID-19? No / Unsure 09/05/2020 2:50 PM HAND TUFTER documented as of this encounter Miscellaneous Notes * Telephone Encounter - Ever Cardozo MA - 09/03/2020 10:34 AM CST Responded to patient as below. Ever Cardozo PHOTOLITHOGRAPHIC STRIPPER ([facility]) TUFTER documented in this encounter Plan of Treatment Upcoming Encounters Date Type Department Care Team (Late st Contact Info) Description 10/23/2024 9:30 AM CDT Office Visit [facility] - [address], [address] [place] [address] [place] [address] [place] [address] [place] [address] Johnny Penn MD [address] [facility] [place] [id number] documented as of this encounter Visit Diagnoses Not on filedocumented in this encounter Additional Health Concerns Infection Onset Date Last Indicated Resolved Time Rule Out COVID-19 09/24/2020 09/24/2020 09/24/2020 9:24 AM CDT Rule Out COVID-19 11/05/2020 11/05/2020 11/06/2020 1:09 PM CDT Rule Out COVID-19 05/11/2021 05/11/2021 05/13/2021 10:18 AM CDT Rule Out COVID-19 07/13/2021 07/13/2021 07/14/2021 3:04 PM HAND TUFTER Rule Out COVID-19 07/18/2021 07/18/2021 07/20/2021 1:56 PM HAND TUFTER COVID-19 07/18/2021 07/18/2021 08/08/2021 11:3 9 PM HAND TUFTER Rule Out COVID-19 12/18/2021 12/18/2021 12/19/2021 11:34 AM CDT Rule Out COVID-19 02/24/2022 02/24/2022 02/25/2022 1:08 PM CDT Rule Out COVID-19 04/26/2022 04/26/2022 04/26/2022 6:47 AM CDT Rule Out COVID-19 05/17/2022 05/17/2022 05/17/2022 10:20 PM HAND TUFTER Rule Out COVID-19 06/09/2022 06/09/2022 06/09/2022 9:35 AM HAND TUFTER COVID-19 06/09/2022 06/09/2022 06/30/2022 11:4 1 PM HAND TUFTER Rule Out COVID-19 11/10/2022 11/10/2022 11/11/2022 12:17 PM CDT Rule Out COVID-19 03/07/2023 03/07/2023 03/07/2023 1:20 PM CDT Rule Out COVID-19 12/26/2023 12/26/2023 12/26/2023 9:50 AM CDT Rule Out COVID-19 04/09/2024 04/09/2024 04/10/2024 6:48 PM CDT Assessment Noted Time PHQ-9 Depression Total Score: 9 06/25/20 20 7:04 AM HAND TUFTER documented as of this encounter Care Teams Dishwasher Busser Relationship Specialty Start Date End Date Marija Edgar APRN ODD SHOE EXAMINER PCP - General Nurse Practitioner 04/30/20 04/14/23 Esha Grimm PA-C [address] [place] [phone] PCP - General Family Medicine 05/04/23 Lita Oseguera Personal Advocate & Liaison (PAL) 02/28/20 03/27/23 Chanelle Mccann APRN CNM [address] [place], [facility] [address] [place] [address] Assigned OBGYN Provider 05/02/2005/09 Kyara De La Fuente, RN Specialty Information Systems Coordinator Neurology 06/04/20 03/05/21 Marija Edgar APRN ODD SHOE EXAMINER Assigned PCP 06/08/20 04/29/23 Mynor Broussard MD [address] [facility] 500 [place], [place] [phone] Assigned Surgical Provider 06/01/20 11/28/21 Keisha Dotson MD [address] [place], [place] [id number] Assigned Neuroscience Provider 06/04/20 04/01/23 Stacey Briones, [facility] Lead Information Systems Coordinator Primary Care - CC 08/11/2012/30 Lesley Guillermo, [...] Desir, [facility] [address] [place] [address] Pharmacist Pharmacist 04/17/21 Rain Galaviz PA-C [address] [place] [address] [place] [address] Physician Enrollment Management Manager Dermatology 04/28/21 Summer Lara MD [address] [place] [address] Assigned OBGYN Provider 05/10/2105/23 Summer Lara MD [address] [place] [address] Assigned OBGYN Provider 05/31/21 Summer Lara MD [address] [place] [address] Assigned OBGYN Provider 05/24/2105/30 Tavia Wyatt MD [address] [place] [address] Dermatology 07/14/[address] [facility] [place] [id number] [place] [address] Assigned Musculoskeletal Provider 08/30/21 03/17/22 Erica Farrell APRN ODD SHOE EXAMINER [address] [place] [id number] [place] [address] Nurse Practitioner Cardiovascular Disease 09/09/21 Teresita Bean [facility] [address] [place] [address] Pharmacist Pharmacist 09/24/21 09/29/21 Tavia Wyatt MD [address] [place] [address] Assigned Surgical Provider 11/29/21 05/07/22 Diana Desir [facility] [address] [place] [address] Assigned MTM Pharmacist 01/02/22 Rich Barrett MD [address] [phone] Physician Ophthalmology 01/21/22 Neil Kent MD [address] [place] [address] Dermatology 02/24/22 Roney Story DPM [address] [facility] [address] [place] [address] Assigned Musculoskeletal Provider 03/20/22 08/13/22 Erica Farrell APRN ODD SHOE EXAMINER [address] [place] [address] Assigned Heart and Vascular Provider 04/03/22 04/16/22 Diana Desir [facility] [address] [place] [address] Assigned MTM Pharmacist 04/07/22 Jelena David OD [address] [facility] [place] [address] Assigned Surgical Provider 05/08/22 10/08/22 Galo Burrell MD Assigned Heart and Vascular Provider 04/17/22 06/11/22 Livan Sharif MD [address] [place] [address] Cardiovascular Disease 05/14/22 Livan Sharif MD [address] [place] [id number] Assigned Heart and Vascular Provider 06/12/22 07/23/22 Catherine Cm MD [address] [place] [address] Cardiovascular Disease 07/21/22 Valery Veronica, PA-C [address] [place], [place] [address] Physician Enrollment Management Manager Dermatology 07/21/22 Catherine Cm MD [address] [place] [address] Assigned Heart and Vascular Provider 07/24/22 11/05/22 Johnny Murillo MD [address] [facility] [address] [place], [place] [address] Assigned Musculoskeletal Provider 08/14/22 10/08/22 Brea Quinn APRN ODD SHOE EXAMINER [address] [place], [place] [address] Nurse Practitioner Dermatology 09/21/22 Brea Quinn APRN ODD SHOE EXAMINER [address] [place] [address] Assigned Surgical Provider 10/09/22 05/01/24 [place] [address] [place] [address] [address] Assigned Musculoskeletal Provider 10/09/22 05/01/24 Livan Sharif MD [address] [place] [facility] [address] [place] [address] Assigned Heart and Vascular Provider 11/06/22 11/12/22 Catherine Cm MD [address] [facility] [address] [place] [address] Assigned Heart and Vascular Provider 11/13/22 05/27/23 Sydnie Martinez RN Personal Advocate & Liaison (PAL) Family Medicine 03/28/23 07/31/23 Alfonso Renteria MD [address] [facility] 200 [place], [place] [address] Assigned Neuroscience Provider 04/02/23 Cheng Todd PA-C [address] [place] [address] [phone] Assigned PCP 04/30/23 07/15/23 Radha Lomeli APRN ODD SHOE EXAMINER [address] [facility] [address] [facility] [place], [place] [address] Assigned Heart and Vascular Provider 05/28/23 Jelena David OD [address] [place] [address] MD Ophthalmology 06/15/23 Pao Joseph, VJ Personal Advocate & Liaison (PAL) Nurse 08/01/23 11/07/23 Esha Grimm PA-C [address] [place] [phone] Assigned PCP 07/16/23 Valery Veronica PA-C [address] [place] [address] [phone] Physician Enrollment Management Manager Dermatology 09/19/23 Rey Tay MD [address] [place] [address] [phone] MD Gastroenterology 09/20/23 Rocky Zepeda DO [address] [place] [address] 997245 Physician Gastroenterology 09/20/23 Philip Dumont MD [address] [place] [address] 143135 Physician Ophthalmology 09/22/23 Meredith Carrera PA-C [address] [place] [address] 175985 Assigned Gastroenterology Provider 11/01/23 Neil Kent MD [address] [address] Dermatology 11/02/23 [place] [address] [place] [facility] [place] [address] Neurological Surgery 12/26/23 Audrey Waite PA-C [address] [place] [address] Physician Enrollment Management Manager Dermatology 02/28/24 Valery Veronica PA-C 640552 [place] [address] Physician Enrollment Management Manager Dermatology 04/10/24 Herminia Hatch MD [facility]5 [place], [place] [phone] Assigned Rheumatology Provider 07/02/24 documented as of this encounter
--- OUTSIDE RECORDS SUMMARY | 2024-08-28 19:03 | XMS_ITS | Clinical Summary ---
Author Organization [facility] Address [address] [address] Phone Care Team Providers Care Recruitment And Outreach Assistant Name Role Phone Unavailable Primary Care Provider [...] Not on file Insurance [employer] [facility] [facility] Commercial Address: [address] [place] [address]
--- OUTSIDE RECORDS SUMMARY | 2024-08-28 19:04 | XMS_ITS | Encounter Summary ---
Author Organization [facility] Address [address] [place] [address] Care Team Providers Care Certified Legal Investigator Name Role Phone Lita Oseguera Unavailable Unavailable Marija Edgar APRN MECHANICAL RESEARCH ENGINEER Primary Care Provider + Chanelle Mccann APRN CNM Unavailab le Kyara De La Fuente RN Unavailable [phone] Marija Edgar APRN MECHANICAL RESEARCH ENGINEER Unavailable Mynor Broussard MD Unavailable [phone] Keisha Dotson MD Unavailable Mary Mejia Unavailable Unavailable Stacey Briones BEHAVIORAL HEALTH ASSOCIATE Unavailable Lesley Guillermo CHW Unavailable Mary Mejia Unavailable Unavailable Lita Oseguera Unavailable Unavailable Galo Burrell MD Unavailable Unavailable Cristina Wood Unavailable Lesley Guillermo CHW Unavailable Meredith Bedoya Unavailable Unavailable Cristina Wood Unavailable Diana Desir [facility] Unavailable [phone] Ruhland, Rain Lena PA-C Unavailable Summer Lara MD Unavailable [phone] Summer Lara MD Unavailable [phone] Summer Lara MD Unavailable [phone] Tavia Wyatt MD Unavailable [phone] Johnny Murillo MD Unavailable +[phone]- Erica Farrell EVENING OR NIGHT NURSE SUPERVISOR MECHANICAL RESEARCH ENGINEER Unavailable VikasTeresita H Unavailable Tavia Wyatt MD Unavailable [phone] Diana Desir [facility] Unavailable [phone] Rich Barrett MD Unavailable Neil Kent MD Unavailable Roney Story [facility] Unavailable Erica Farrell APRN MECHANICAL RESEARCH ENGINEER Unavailable Diana Desir [facility] Unavailable [phone] Jelena David OD Unavailable Galo Burrell MD Unavailable Unavailable Livan Sharif MD Unavailable Livan Sharif MD Unavailable + Catherine Cm MD Unavailable + Valery Veronica PA-C Unavailable [phone] Catherine Cm MD Unavailable + Johnny Murillo MD Unavailable +[phone]- Brea Quinn EVENING OR NIGHT NURSE SUPERVISOR MECHANICAL RESEARCH ENGINEER Unavailable [phone] Brea Quinn EVENING OR NIGHT NURSE SUPERVISOR MECHANICAL RESEARCH ENGINEER Unavailable [phone] Jose Francisco Johnson MD Unavailable Livan Sharif MD Unavailable Catherine Cm MD Unavailable + Sydnie Martinez RN Unavailable Unavailable Alfonso Renteria MD Unavailable [phone] Esha Grimm PA-C Primary Care Provider Cheng Todd PA-C Unavailable Radha Lomeli APRN MECHANICAL RESEARCH ENGINEER Unavailable FrankieJelena OD Unavailable [phone] Pao Joseph RN Unavailable Unavailable Esha Grimm PA-C Unavailable [phone] Valery Veronica PA-C Unavailable [phone] Rey Tay MD Unavailable Rocky Zepeda DO Unavailable Philip Dumont MD Unavailable Meredith Carrera PA-C Unavailable [phone] Neil Kent MD Unavailable Juan Pablo Emmanuel MD Unavailable uAdrey Waite PA-C Unavailable [phone] JeremíasValery damon PA-C Unavailable Herminia Hatch MD Unavailable Encounter Details Date Type Department Care Team (Late st Contact Info) Description 08/01/2020 MyC Medical Advice [facility] [id number] [place] [phone] Marija Edgar APRN MECHANICAL RESEARCH ENGINEER [address] [place] [address] Social History Tobacco Use Types Packs/Day [...] PM CDT Legal Sex Female 4:13 AM INFIRMARY ATTENDANT Gender Identity Female 03/02/2021 5:45 PM CDT Sexual Orientation Straight 02/28/2020 12 :51 AM CDT COVID-19 Exposure Response Date Recorded In the last month, have you been in contact with someone who was confirmed or suspected to have Coronavirus / COVID-19? No / Unsure 07/30/2020 4:53 PM INFIRMARY ATTENDANT documented as of this encounter Miscellaneous Notes * Telephone Encounter - Estephania Black RN - 08/01/2020 9:11 AM INFIRMARY ATTENDANT Schedule patient for Zio Patch. Detailed message left on phone and through [email or web address]. Estephania Black RN Flex RMARY ATTENDANT * Telephone Encounter - Marija Edgar APRN CNP - 08/01/2020 8:46 AM INFIRMARY ATTENDANT Please help patient schedule her zio patch. This order has been in place since 05/2020 and a new order was placed this week. RMARY ATTENDANT documented in this encounter Plan of Treatment Upcoming Encounters Date Type Department Care Team (Late st Contact Info) Description 10/23/2024 9:30 AM CDT Office Visit [facility] Neurology Clinics - [address], [address] [place] [address] [place] [address] [address] [place] [address] Johnny Penn MD [address] [facility] [place] [address] (work) documented as of this encounter Visit Diagnoses Not on filedocumented in this encounter Additional Health Concerns Infection Onset Date Last Indicated Resolved Time Rule Out COVID-19 08/30/2020 08/30/2020 08/30/2020 5:05 PM INFIRMARY ATTENDANT Rule Out COVID-19 09/24/2020 09/24/2020 09/24/2020 9:24 AM CDT Rule Out COVID-19 11/05/2020 11/05/2020 11/06/2020 1:09 PM CDT Rule Out COVID-19 05/11/2021 05/11/2021 05/13/2021 10:18 AM CDT Rule Out COVID-19 07/13/2021 07/13/2021 07/14/2021 3:04 PM INFIRMARY ATTENDANT Rule Out COVID-19 07/18/2021 07/18/2021 07/20/2021 1:56 PM INFIRMARY ATTENDANT COVID-19 07/18/2021 07/18/2021 08/08/2021 11:3 9 PM INFIRMARY ATTENDANT Rule Out COVID-19 12/18/2021 12/18/2021 12/19/2021 11:34 AM CDT Rule Out COVID-19 02/24/2022 02/24/2022 02/25/2022 1:08 PM CDT Rule Out COVID-19 04/26/2022 04/26/2022 04/26/2022 6:47 AM CDT Rule Out COVID-19 05/17/2022 05/17/2022 05/17/2022 10:20 PM INFIRMARY ATTENDANT Rule Out COVID-19 06/09/2022 06/09/2022 06/09/2022 9:35 AM INFIRMARY ATTENDANT COVID-19 06/09/2022 06/09/2022 06/30/2022 11:4 1 PM INFIRMARY ATTENDANT Rule Out COVID-19 11/10/2022 11/10/2022 11/11/2022 12:17 PM CDT Rule Out COVID-19 03/07/2023 03/07/2023 03/07/2023 1:20 PM CDT Rule Out COVID-19 12/26/2023 12/26/2023 12/26/2023 9:50 AM CDT Rule Out COVID-19 04/09/2024 04/09/2024 04/10/2024 6:48 PM CDT Assessment Noted Time PHQ-9 Depression Total Score: 9 06/25/20 7:04 AM INFIRMARY ATTENDANT documented as of this encounter Care Teams Certified Legal Investigator Relationship Specialty Start Date End Date Marija Edgar APRN MECHANICAL RESEARCH ENGINEER PCP - General Nurse Practitioner 04/30/20 04/14/23 Esha Grimm PA-C [address] [place] [phone] PCP - General Family Medicine 05/04/23 Lita Oseguera Personal Advocate & Liaison (PAL) 02/28/20 03/27/23 Chanelle Mccann APRN CNM [address] [place] [address] [address] [place] [address] Assigned OBGYN Provider 05/02/2005/09 Kyara De La Fuente, RN Specialty Broadcast Producer Neurology 06/04/20 03/05/21 Marija Edgar APRN MECHANICAL RESEARCH ENGINEER Assigned PCP 06/08/20 04/29/23 Mynor Broussard MD 6363 [facility] 500 [place], [place] 767425 Assigned Surgical Provider 06/01/20 11/28/21 Keisha Dotson MD 909 [place], [place] 082185 Assigned Neuroscience Provider 06/04/20 04/01/23 Mary Mejia Financial Resource Worker 08/07/20 08/21/20 Stacey Briones, [facility] Lead Broadcast Producer Primary Care - CC 08/11/2012/30 Lesley Guillermo, [facility] Community Health Worker 08/11/2010/01 Mary eMjia Financial Resource Worker 09/02/20 10/06/20 Lita Oseguera Personal Advocate & Liaison (PAL) Family Medicine 09/10/20 09/21/20 Galo Burrell MD Assigned Heart and Vascular Provider 10/05/20 04/02/22 Cristina Wood Financial Resource Worker 10/07/20 10/14/20 Lesley Guillermo, [facility] Community Health Worker 10/23/2012/30 Meredith Bedoya Financial Resource Worker 10/23/20 11/23/20 Cristina Wood Financial Resource Worker 02/09/21 02/09/21 Diana Desir, [facility] 3033 [place], [place] 994386 Pharmacist Pharmacist 04/17/21 Rain Galaviz PA-C [address] [place] [address] [address] [place], [place] [phone] Physician Knock Up Assembler Dermatology 04/28/21 Summer Lara MD [address] [place] [address] Assigned OBGYN Provider 05/10/2105/23 Summer Lara MD [address] [place] [address] Assigned OBGYN Provider 05/31/21 2 Summer Lara MD [address] [place] [address] Assigned OBGYN Provider 05/24/2105/30 Tavia Wyatt MD [address] [place] [address] Dermatology 07/14/21 Johnny Murillo MD [address] [place] [address] Assigned Musculoskeletal Provider 08/30/21 03/17/22 Erica Farrell APRN MECHANICAL RESEARCH ENGINEER [address] [facility] [address] [place], [place] 6813[address] Nurse Practitioner Cardiovascular Disease 09/09/21 Teresita Bean [facility] [address] [place] [id number] Pharmacist Pharmacist 09/24/21 09/29/21 Tavia Wyatt MD [address] [place] [address] Assigned Surgical Provider 11/29/21 05/07/22 Diana Desir, [facility] [address] [place] [address] Assigned MTM Pharmacist 01/02/22 Rich Barrett MD 516 [facility] [address] [place], [place] 1740[address] Physician Ophthalmology 01/21/22 Neil Kent MD 500 [place] [address] Dermatology 02/24/22 Roney Story DPM [address] [facility] [address] [place] [address] Assigned Musculoskeletal Provider 03/20/22 08/13/22 Erica Farrell APRN MECHANICAL RESEARCH ENGINEER 1700 [place] [address] Assigned Heart and Vascular Provider 04/03/22 04/16/22 [facility] [address] [place], [place] 663366 Assigned MTM Pharmacist 04/07/22 Jelena David OD [address] [facility] [place] [address] Assigned Surgical Provider 05/08/22 10/08/22 Galo Burrell MD Assigned Heart and Vascular Provider 04/17/22 06/11/22 Livan Sharif MD [address] [place] 168515 Cardiovascular Disease 05/14/22 Livan Sharif MD [address] [place] 326875 Assigned Heart and Vascular Provider 06/12/22 07/23/22 Catherine Cm MD [address] [address] Cardiovascular Disease 07/21/22 Valery Veronica, PA-C [address] [place] [address] 451905 Physician Knock Up Assembler Dermatology 07/21/22 Catherine Cm MD [address] [address] Assigned Heart and Vascular Provider 07/24/22 11/05/22 Johnny Murillo MD [address] [place] [address] Assigned Musculoskeletal Provider 08/14/22 10/08/22 Brea Quinn APRN MECHANICAL RESEARCH ENGINEER [address] [place] [address] 754875 Nurse Practitioner Dermatology 09/21/22 Brea Quinn APRN MECHANICAL RESEARCH ENGINEER [address] [place] [address] Assigned Surgical Provider 10/09/22 05/01/24 [place] [address] [address] Assigned Musculoskeletal Provider 10/09/22 05/01/24 Livan Sharif MD [address] [place] [address] Assigned Heart and Vascular Provider 11/06/22 11/12/22 Catherine Cm MD [address] [place] [address] Assigned Heart and Vascular Provider 11/13/22 05/27/23 Sydnie Martinez RN Personal Advocate & Liaison (PAL) Family Medicine 03/28/23 07/31/23 Alfonso Renteria MD [address] [facility] 200 [place] [address] Assigned Neuroscience Provider 04/02/23 Cheng Todd PA-C [address] [place] [address] [id number] Assigned PCP 04/30/23 07/15/23 Radha Lomeli APRN MECHANICAL RESEARCH ENGINEER [address] [place] [address] Assigned Heart and Vascular Provider 05/28/23 Jelena David OD [facility]5 [facility] [place] [address] Ophthalmology 06/15/23 Pao Joseph, VJ Personal Advocate & Liaison (PAL) Nurse 08/01/23 11/07/23 Esha Grimm PA-C [address] [place] [address] Assigned PCP 07/16/23 Valery Veronica PA-C 9 [place] [address] Physician Knock Up Assembler Dermatology 09/19/23 Rey Tay MD 9 [place] [address] MD Gastroenterology 09/20/23 Rocky Zepeda DO 500 [place] [address] Physician Gastroenterology 09/20/23 Philip Dumont MD 6 [place] [address] Physician Ophthalmology 09/22/23 Meredith Carrera PA-C [address] [place] [address] Assigned Gastroenterology Provider 11/01/23 Neil Kent MD [address] [address] Dermatology 11/02/23 [place] [address] [address] [facility] [address] [place], [place] [address] Neurological Surgery 12/26/23 Audrey Waite PA-C 500 [place] [address] Physician Knock Up Assembler Dermatology 02/28/24 Valery Veronica PA-C [address] [place] [address] Physician Knock Up Assembler Dermatology 04/10/24 Herminia Hatch MD [address] [place] [address] Assigned Rheumatology Provider 07/02/24 documented as of this encounter
--- OUTSIDE RECORDS SUMMARY | 2024-08-28 19:04 | XMS_ITS | Encounter Summary ---
Author Organization [facility] Address [address] [place] [address] Care Team Providers Care Administrative Resources Associate Name Role Phone Lita Oseguera Unavailable Unavailable Marija Edgar APRN SOFT WORK WRAPPER LAYER AND EXAMINER Primary Care Provider + Marija Edgar APRN SOFT WORK WRAPPER LAYER AND EXAMINER Unavailable [phone] Mynor Broussard MD Unavailable [phone] Keisha Dotson MD Unavailable Galo Burrell MD Unavailable Unavailable Diana Desir [facility] Unavailable Rain Galaviz PA-C Unavailable Summer Lara MD Unavailable [phone] Tavia Wyatt MD Unavailable Johnny Murillo MD Unavailable [phone] Erica Farrell APRN SOFT WORK WRAPPER LAYER AND EXAMINER Unavailable Tavia Wyatt MD Unavailable Diana Desir [facility] Unavailable [phone] Rich Barrett MD Unavailable [phone] Neil Kent MD Unavailable Roney Story DPM Unavailable Erica Farrell TRANSMISSION AND COORDINATION ENGINEER SOFT WORK WRAPPER LAYER AND EXAMINER Unavailable Diana Desir [facility] Unavailable Jelena David OD Unavailable [phone] Galo Burrell MD Unavailable Unavailable Livan Sharif MD Unavailable Livan Sharif MD Unavailable Catherine Cm MD Unavailable + Valery Veronica PA-C Unavailable [phone] Catherine Cm MD Unavailable + Johnny Murillo MD Unavailable [phone] Brea Quinn TRANSMISSION AND COORDINATION ENGINEER SOFT WORK WRAPPER LAYER AND EXAMINER Unavailable [phone] Brea Quinn TRANSMISSION AND COORDINATION ENGINEER SOFT WORK WRAPPER LAYER AND EXAMINER Unavailable [phone] Jose Francisco Johnson MD Unavailable Livan Sharif MD Unavailable + IsCatherine hobbs MD Unavailable + Sydnie Martinez RN Unavailable Unavailable Alfonso Renteria MD Unavailable Esha Grimm PA-C Primary Care Provider Cheng Todd PA-C Unavailable Radha Lomeli TRANSMISSION AND COORDINATION ENGINEER SOFT WORK WRAPPER LAYER AND EXAMINER Unavailable [phone] Jelena David OD Unavailable Pao Joseph RN Unavailable Unavailable Esha Grimm PA-C Unavailable [phone] Valery Veronica PA-C Unavailable [phone] Rey Tay MD Unavailable Rocky Zepeda DO Unavailable Philip Dumont MD Unavailable DebiMeredithC Unavailable [phone] Neil Kent MD Unavailable Juan Pablo Emmanuel MD Unavailable [phone] Audrey Waite PA-C Unavailable [phone] Valery Veronica PA-C Unavailable [phone] Herminia Hatch MD Unavailable Reason for Visit * Reason Onset Date Comments Refill Request 10/31/2021 sertraline Encounter Details Date Type Department Care Team (Late st Contact Info) Description 10/31/[address] [address] Marija Edgar APRN SOFT WORK WRAPPER LAYER AND EXAMINER 7646 [facility] [place] [address] Refill Request (sertraline) Social History [...] How often do you attend latter-day or latter-day serv ices? Never 09/22/2021 Do [...] a senior living (including now)? No 09/22/2021 [place] Depression Scale Answer Date Recorded [place] Depression Score 5 01/14/2021 Last EPDS Self Harm Result Not on file 01/14 Education Answer Date Recorded What is the highest level of school you have completed or the highest degree you have received? 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 CYBER SECURITY ENGINEER Gender Identity Female 03/02/2021 5:45 PM [...] - 11/02/2021 8:58 AM CDT Approved per [facility] CPA. Diana Desir, PharmD Medication Therapy Management Provider, [facility] Pager: [phone] * Telephone Encounter - Aleyda Scott RN [...] daily. Pt has follow up tomorrow with [facility] pharmacist to continue to work on taper. Appointments in Next Year Nov 03, 2021 3:30 PM Pharmacist Visit with Diana Desir [facility] ) [phone] Informed patient that will route refill request [...] can be reached at: Other phone number: [phone] Best Time: ANYTIME Can we leave a detailed message on this number? YES Call taken on 10/31/2021 at 10:31 AM by Amalia Deluca documented in this encounter Plan of Treatment Upcoming Encounters Date Type Department Care Team (Late st Contact Info) Description 10/23/2024 9:30 AM CDT Office Visit [facility] Neurology Clinics - [place] [address] [place] [address], [address] [place] [address] [place] [address] [address] [place] [address] Johnny Penn MD [address] [place] [address] documented as [...] Out COVID-19 05/17/2022 05/17/2022 05/17/2022 10:20 PM CYBER SECURITY ENGINEER Rule Out COVID-19 06/09/2022 06/09/2022 06/09/2022 9:35 AM CYBER SECURITY ENGINEER COVID-19 06/09/2022 06/09/2022 06/30/2022 11:4 1 PM CYBER SECURITY ENGINEER Rule Out COVID-19 11/10/2022 11/10/2022 11/11/2022 12:17 PM CDT Rule Out COVID-19 03/07/2023 03/07/2023 03/07/2023 1:20 PM CDT Rule Out COVID-19 12/26/2023 12/26/2023 12/26/2023 9:50 AM CDT Rule Out COVID-19 04/09/2024 04/09/2024 04/10/2024 6:48 PM CDT Assessment Noted Time PHQ-9 Depression Total Score: 2 04/02/20 21 10:19 AM CDT documented as of this encounter Care Teams Administrative Resources Associate Relationship Specialty Start Date End Date Marija Edgar APRN CNP PCP - General Nurse Practitioner 04/30/20 04/14/23 Esha Grimm PA-C [address] [place] [address] PCP - General Family Medicine 05/04/23 Lita Oseguera Personal Advocate & Liaison (PAL) 02/28/20 03/27/23 Marija Edgar APRN SOFT WORK WRAPPER LAYER AND EXAMINER Assigned PCP 06/08/20 04/29/23 Mynor Broussard MD 6363 [facility] 500 [place] [id number] Assigned Surgical Provider 06/01/20 11/28/21 Keisha Dotson MD 909 [place], [place] 883165 Assigned Neuroscience Provider 06/04/20 04/01/23 Galo Burrell MD Assigned Heart and Vascular Provider 10/05/20 04/02/22 [facility] [address] [place] [address] Pharmacist Pharmacist 04/17/21 Rain Galaviz PA-C [address] [facility] [address] [place] [address] Physician Management Trainer Dermatology 04/28/21 Summer Lara MD [address] [place] [address] 658084 Assigned OBGYN Provider 05/31/21 2 Tavia Wyatt MD [address] [place] [address] 426214 Dermatology 07/14/21 Johnny Murillo MD [address] [place] [address] Assigned Musculoskeletal Provider 08/30/21 03/17/22 Erica Farrell APRN SOFT WORK WRAPPER LAYER AND EXAMINER 6405 [facility] [address] [place] [address] Nurse Practitioner Cardiovascular Disease 09/09/21 Tavia Wyatt MD [address] [place] [address] Assigned Surgical Provider 11/29/21 05/07/22 Diana Desir [facility] 3033 [place] [address] Assigned MTM Pharmacist 01/02/22 Rich Barrett MD 516 [facility] 9A [place], [place] 5[address] Physician Ophthalmology 01/21/22 Neil Kent MD 500 [place], [place] 024505 Dermatology 02/24/22 Roney Story DPM [address] [facility] [address] [place] [address] Assigned Musculoskeletal Provider 03/20/22 08/13/22 Erica Farrell APRN SOFT WORK WRAPPER LAYER AND EXAMINER 1700 [place] [address] Assigned Heart and Vascular Provider 04/03/22 04/16/22 Diana Desir [facility] [address] [place], [place] 8[address] Assigned MTM Pharmacist 04/07/22 Frankie Jelena TempletonSONJA woods [address] [facility] [address] Assigned Surgical Provider 05/08/22 10/08/22 Galo Burrell MD Assigned Heart and Vascular Provider 04/17/22 06/11/22 Livan Sharif MD [address] [place] 686025 MD Cardiovascular Disease 05/14/22 Livan Sharif MD [address] [place] 521755 Assigned Heart and Vascular Provider 06/12/22 07/23/22 Catherine Cm MD [address] [facility] [address] [place] 817645 Cardiovascular Disease 07/21/22 Valery Veronica, PA-C 909 [place], [place] 903425 Physician Management Trainer Dermatology 07/21/22 Catherine Cm MD [address] [place] 316395 Assigned Heart and Vascular Provider 07/24/22 11/05/22 Johnny Murillo MD [address] [place] [address] Assigned Musculoskeletal Provider 08/14/22 10/08/22 Brea Quinn APRN SOFT WORK WRAPPER LAYER AND EXAMINER 500 [place] [address] Nurse Practitioner Dermatology 09/21/22 Brea Quinn APRN SOFT WORK WRAPPER LAYER AND EXAMINER 6401 [place] [address] Assigned Surgical Provider 10/09/22 05/01/24 [place] [address] [facility] 300 [place] [address] Assigned Musculoskeletal Provider 10/09/22 05/01/24 Livan Sharif MD [address] Sylvia, [facility] [address] [place] [address] Assigned Heart and Vascular Provider 11/06/22 11/12/22 Catherine Cm MD 6405 [facility] S [facility] [address] [place], [place] 6[address] Assigned Heart and Vascular Provider 11/13/22 05/27/23 Sydnie Martinez RN Personal Advocate & Liaison (PAL) Family Medicine 03/28/23 07/31/23 Alfonso Renteria MD 5775 [facility] 200 [place] [address] Assigned Neuroscience Provider 04/02/23 Cheng Todd PA-C [address] [place] [address] [id number] Assigned PCP 04/30/23 07/15/23 Radha Lomeli APRN SOFT WORK WRAPPER LAYER AND EXAMINER [address] [place] [address] Assigned Heart and Vascular Provider 05/28/23 Jelena David OD [address] [facility] [address] MD Ophthalmology 06/15/23 Pao Joseph, RN Personal Advocate & Liaison (PAL) Nurse 08/01/23 11/07/23 Esha Grimm PA-C [address] [place] [phone] Assigned PCP 07/16/23 Valery Veronica PA-C [address] [place] [address] 336775 Physician Management Trainer Dermatology 09/19/23 Rey Tay MD [address] [place] [address] Gastroenterology 09/20/23 Rocky Zepeda DO [address] [place] [address] 449625 Physician Gastroenterology 09/20/23 Philip Dumont MD [address] [place] [address] 858505 Physician Ophthalmology 09/22/23 Meredith Carrera PA-C [address] [place] [address] 083125 Assigned Gastroenterology Provider 11/01/23 Neil Kent MD [address] [address] Dermatology 11/02/23 [place] [address] 361057 Neurological Surgery 12/26/23 Audrey Waite PA-C 500 [place] [address] Physician Management Trainer Dermatology 02/28/24 Valery Veronica PA-C 003809 [address] [place] [address] Physician Management Trainer Dermatology 04/10/24 Herminia Hatch MD [facility]5 [place], [place] 0[address] Assigned Rheumatology Provider 07/02/24 documented as of this encounter
--- OUTSIDE RECORDS SUMMARY | 2024-08-28 19:04 | XMS_ITS | Encounter Summary ---
Author Organization Dorothy Address [address] [place] [address] Care Team Providers Care Branch Service Associate Name Role Phone Marija Edgar APRN VICE PRESIDENT MEDIA RELATIONS Primary Care Provider + Marija Edgar APRN VICE PRESIDENT MEDIA RELATIONS Unavailable [phone] Diana Desir [facility] Unavailable Rain Galaviz PA-C Unavailable Tavia Wyatt MD Unavailable Erica Farrell APRN VICE PRESIDENT MEDIA RELATIONS Unavailable Rich Barrett MD Unavailable [phone] Neil Kent MD Unavailable Diana Desir [facility] Unavailable Livan Sharif MD Unavailable Catherine Cm MD Unavailable + Valery Veronica PA-C Unavailable Brea Quinn APRN VICE PRESIDENT MEDIA RELATIONS Unavailable Brea Quinn APRN VICE PRESIDENT MEDIA RELATIONS Unavailable Jose Francisco Johnson MD Unavailable Catherine Cm MD Unavailable + Sydnie Martinez RN Unavailable Unavailable Alfonso Renteria MD Unavailable [phone] Esha Grimm PA-C Primary Care Provider Cheng Todd PA-C Unavailable Radha Lomeli APRN VICE PRESIDENT MEDIA RELATIONS Unavailable Jelena David OD Unavailable [phone] Pao Joseph RN Unavailable Unavailable Esha Grimm PA-C Unavailable [phone] Valery Veronica PA-C Unavailable Rey Tay MD Unavailable Rocky Zepeda DO Unavailable Philip Dumont MD Unavailable Meredith Carrera PA-C Unavailable Neil Kent MD Unavailable Juan Pablo Emmanuel MD Unavailable [phone] Audrey Waite PA-C Unavailable JeremíasValery damon PA-C Unavailable [phone] Herminia Hatch MD Unavailable Encounter Details Date Type Department Care Team (Late st Contact Info) Description 04/12/2023 [facility] Medical Advice [facility] Heart [facility] [address] [facility] [address] [place] [address] Livan Sharif MD [address] [place] [address] Social History Tobacco Use Types [...] you attend [facility] or [facility] services? 1 to 4 [...] Answer Date Recorded PHQ-2 Score 0 03/10/2023 [facility] [place] [facility] Occupat ional Health - Occupational Stress [...] in a skilled nursing (including now)? No 03/10/2023 Dwarf Depression Scale Answer Date Recorded Dwarf Depression Score 5 01/14/2021 Last EPDS Self [...] PM CDT Legal Sex Female 4:13 AM GRIP WRAPPER Gender Identity Female 03/02/2021 5:45 PM CDT [...] Thank you. Kim Swann, We are in [place], but asked a tech here to check the photo. He said the spot you chose is OK but he thinks we should have the Infer techs check in with you as you may need to have some extra prep gelif you have have issues with the pads. We are reaching out to that Infer team to let them know you are having some issues. Team [address] [place] [address] Sharif [phone] documented in this encounter Plan of Treatment Upcoming Encounters Date Type Department Care Team (Late st Contact Info) Description 10/23/2024 9:30 AM CDT Office Visit [address], [address] [place] [address] [place] [address] [place], [place] [phone] Johnny Penn MD [address] [place] [id number] documented as of this encounter Visit Diagnoses Not on filedocumented in this encounter Additional Health Concerns Infection Onset Date Last Indicated Resolved Time Rule Out COVID-19 12/26/2023 12/26/2023 12/26/2023 9:50 AM CDT Rule Out COVID-19 04/09/2024 04/09/2024 04/10/2024 6:48 PM CDT Assessment Noted Time PHQ-9 Depression Total Score: 5 03/10/20 6:49 AM CDT documented as of this encounter Care Teams Branch Service Associate Relationship Specialty Start Date End Date Marija Edgar APRN VICE PRESIDENT MEDIA RELATIONS PCP - General Nurse Practitioner 04/30/20 04/14/23 Esha Grimm PA-C [address] [place] [address] PCP - General Family Medicine 05/04/23 Marija Edgar APRN VICE PRESIDENT MEDIA RELATIONS Assigned PCP 06/08/20 04/29/23 Diana Desir, [facility] [address] [place] [address] Pharmacist Pharmacist 04/17/21 Rain Galaviz PA-C [address] [place] [address] [address] [place] [phone] Physician Coke Handling Supervisor Dermatology 04/28/21 Tavia Wyatt MD [address] [place] [address] [address] [facility] [place] [phone] Dermatology 07/14/21 Erica Farrell APRN VICE PRESIDENT MEDIA RELATIONS [address] [place], [place] [address] Nurse Practitioner Cardiovascular Disease 09/09/21 Rich Barrett MD [address] [place] [address] Physician Ophthalmology 01/21/22 Neil Kent MD [address] [place] [address] [phone] Dermatology 02/24/22 Diana Desir, [facility] [address] [place], [place] 3[address] Assigned [place] Pharmacist 04/07/22 Livan Sharif MD [address] [place] [address] Cardiovascular Disease 05/14/22 Catherine Cm MD [address] [place] [address] Cardiovascular Disease 07/21/22 Valery Veronica, PAUcheC [address] [place] [address] Physician Coke Handling Supervisor Dermatology 07/21/22 Brea Quinn APRN VICE PRESIDENT MEDIA RELATIONS [address] [place] [address] Nurse Practitioner Dermatology 09/21/22 Brea Quinn APRN VICE PRESIDENT MEDIA RELATIONS 64[address] [facility] [place] [address] Assigned Surgical Provider 10/09/22 05/01/24 [place] [address] [address] [facility] 300 [place] [address] Assigned Musculoskeletal Provider 10/09/22 05/01/24 Catherine Cm MD [address] [facility] [address] [place] [address] Assigned Heart and Vascular Provider 11/13/22 05/27/23 Sydnie Martinez, RN Personal Advocate & Liaison (PAL) Family Medicine 03/28/23 07/31/23 Alfonso Renteria MD [address] [facility] 200 [place], [place] [address] Assigned Neuroscience Provider 04/02/23 Cheng Todd PA-C [address] [place] [address] [phone] Assigned PCP 04/30/23 07/15/23 Radha Lomeli APRN VICE PRESIDENT MEDIA RELATIONS [address] [place] [address] Assigned Heart and Vascular Provider 05/28/23 Jelena David OD [address] [facility] [place] [address] MD Ophthalmology 06/15/23 Pao Joseph, RN Personal Advocate & Liaison (PAL) Nurse 08/01/23 11/07/23 Esha Grimm PA-C [address] [place] [phone] Assigned PCP 07/16/23 Valery Veronica PA-C [address] [place] [address] [id number] Physician Coke Handling Supervisor Dermatology 09/19/23 Rey Tay MD [address] [place] [address] [phone] MD Gastroenterology 09/20/23 Rocky Zepeda DO [address] [place] [address]95 Physician Gastroenterology 09/20/23 Philip Dumont MD [address] [place] [address] 056225 Physician Ophthalmology 09/22/23 Meredith Carrera PA-C [address] [place] [address] Assigned Gastroenterology Provider 11/01/23 Neil Kent MD [address] [address] Dermatology 11/02/23 [place] [address] [place] [address] Neurological Surgery 12/26/23 Audrey Waite PA-C 500 [place] [address] Physician Coke Handling Supervisor Dermatology 02/28/24 Valery Veronica PA-C [address] [place] [address] Physician Coke Handling Supervisor Dermatology 04/10/24 Herminia Hatch MD [address] [place] [address] [phone] Assigned Rheumatology Provider 07/02/24 documented as of this encounter
--- OUTSIDE RECORDS SUMMARY | 2024-08-28 19:04 | XMS_ITS | Encounter Summary ---
Author Organization Ider Address [address] [place] [address] Care Team Providers Care Chipping Machine Operator Name Role Phone Lita Oseguera Unavailable Unavailable Marija Edgar APRN BOWLING PIN REFINISHER Primary Care Provider + Chanelle Mccann APRN CNM Unavailab le Kyara De La Fuente RN Unavailable [phone] Marija Edgar APRN BOWLING PIN REFINISHER Unavailable [phone] Mynor Broussard MD Unavailable [phone] Keisha Dotson MD Unavailable [phone] Mary Mejia Unavailable Unavailable Stacey Briones BLUEPRINTING MACHINE OPERATOR Unavailable [phone] Lesley Guillermo CHW Unavailable Mary Meija Unavailable Unavailable Lita Oseguera Unavailable Unavailable Galo Burrell MD Unavailable Unavailable Cristina Wood Unavailable Lesley Guillermo CHW Unavailable Meredith Bedoya Unavailable Unavailable Cristina Wood Unavailable Diana Desir [facility] Unavailable [place], Rain Lena PA-C Unavailable Summer Lara MD Unavailable [phone] Summer Lara MD Unavailable [phone] Summer Lara MD Unavailable [phone] Tavia Wyatt MD Unavailable [phone] Johnny Murillo MD Unavailable +[phone] Erica Farrell OPERATING ROOM SURGICAL TECHNOLOGIST BOWLING PIN REFINISHER Unavailable VikasTeresita H Unavailable Tavia Wyatt MD Unavailable [phone] Diana Des[address] [facility] Unavailable [phone] Rich Barrett MD Unavailable Neil Kent MD Unavailable Roney Story [facility] Unavailable Erica Farrell APRN BOWLING PIN REFINISHER Unavailable Diana Desir [facility] Unavailable [phone] Jelena David OD Unavailable Galo Burrell MD Unavailable Unavailable Livan Sharif MD Unavailable Livan Sharif MD Unavailable + Catherine Cm MD Unavailable + Valery Veronica PA-C Unavailable [phone] Catherine Cm MD Unavailable + Johnny Murillo MD Unavailable +1- Brea Quinn OPERATING ROOM SURGICAL TECHNOLOGIST BOWLING PIN REFINISHER Unavailable [phone] Brea Quinn OPERATING ROOM SURGICAL TECHNOLOGIST BOWLING PIN REFINISHER Unavailable [phone] Jose Francisco Johnson MD Unavailable Livan Sharif MD Unavailable Catherine Cm MD Unavailable + Sydnie [place] RN Unavailable Unavailable Alfonso Renteria MD Unavailable [phone] Esha Grimm PA-C Primary Care Provider Cheng Todd PA-C Unavailable ArmaniRadha APRN BOWLING PIN REFINISHER Unavailable Jelena David OD Unavailable Pao Joseph RN Unavailable Unavailable Esha Grimm PA-C Unavailable [phone] Valery Veronica PA-C Unavailable Rey Tay MD Unavailable Rocky Zepeda DO Unavailable Philip Dumont MD Unavailable Meredith Carrera PA-C Unavailable Neil Kent MD Unavailable Juan Pablo Emmanuel MD Unavailable Audrey Waite PA-C Unavailable [phone] JeremíasValery damon PA-C Unavailable Herminia Hatch MD Unavailable Encounter Details Date Type Department Care Team (Late st Contact Info) Description 07/29/2020 My[facility] Medical Advice M Physicians [facility] [address], [address] [place] [address] Keisha Dotson MD 9 [place] [address] Social History Tobacco Use Types [...] PM CDT Legal Sex Female 4:13 AM PROOF OPERATOR Gender Identity Female 03/02/2021 5:45 PM CDT Sexual Orientation Straight 02/28/2020 12 :51 AM CDT COVID-19 Exposure Response Date Recorded In the last month, have you been in contact with someone who was confirmed or suspected to have Coronavirus / COVID-19? No / Unsure 07/30/2020 4:53 PM PROOF OPERATOR documented as of this encounter Plan of Treatment Upcoming Encounters Date Type Department Care Team (Late st Contact Info) Description 10/23/2024 9:30 AM CDT Office Visit [facility] Neurology [address], [address] [place] [address] [place] [address] [phone] Johnny Penn MD [address] [place] [id number] documented as of this encounter Visit Diagnoses Not on filedocumented in this encounter Additional Health Concerns Infection Onset Date Last Indicated Resolved Time Rule Out COVID-19 07/30/2020 07/30/2020 07/30/2020 7:11 PM PROOF OPERATOR Rule Out COVID-19 08/30/2020 08/30/2020 08/30/2020 5:05 PM PROOF OPERATOR Rule Out COVID-19 09/24/2020 09/24/2020 09/24/2020 9:24 AM CDT Rule Out COVID-19 11/05/2020 11/05/2020 11/06/2020 1:09 PM CDT Rule Out COVID-19 05/11/2021 05/11/2021 05/13/2021 10:18 AM CDT Rule Out COVID-19 07/13/2021 07/13/2021 07/14/2021 3:04 PM PROOF OPERATOR Rule Out COVID-19 07/18/2021 07/18/2021 07/20/2021 1:56 PM PROOF OPERATOR COVID-19 07/18/2021 07/18/2021 08/08/2021 11:3 9 PM PROOF OPERATOR Rule Out COVID-19 12/18/2021 12/18/2021 12/19/2021 11:34 AM CDT Rule Out COVID-19 02/24/2022 02/24/2022 02/25/2022 1:08 PM CDT Rule Out COVID-19 04/26/2022 04/26/2022 04/26/2022 6:47 AM CDT Rule Out COVID-19 05/17/2022 05/17/2022 05/17/2022 10:20 PM PROOF OPERATOR Rule Out COVID-19 06/09/2022 06/09/2022 06/09/2022 9:35 AM PROOF OPERATOR COVID-19 06/09/2022 06/09/2022 06/30/2022 11:4 1 PM PROOF OPERATOR Rule Out COVID-19 11/10/2022 11/10/2022 11/11/2022 12:17 PM CDT Rule Out COVID-19 03/07/2023 03/07/2023 03/07/2023 1:20 PM CDT Rule Out COVID-19 12/26/2023 12/26/2023 12/26/2023 9:50 AM CDT Rule Out COVID-19 04/09/2024 04/09/2024 04/10/2024 6:48 PM CDT Assessment Noted Time PHQ-9 Depression Total Score: 9 06/25/20 20 7:04 AM PROOF OPERATOR documented as of this encounter Care Teams Chipping Machine Operator Relationship Specialty Start Date End Date Marija Edgar APRN CNP PCP - General Nurse Practitioner 04/30/20 04/14/23 Esha Grimm PA-C [address] [place] [phone] PCP - General Family Medicine 05/04/23 Lita Oseguera Personal Advocate & Liaison (PAL) 02/28/20 03/27/23 Chanelle Mccann APRN CNM [address] [facility] 200 [place] [address] Assigned OBGYN Provider 05/02/2005/09 Kyara De La Fuente, RN Specialty Line Locator Neurology 06/04/20 03/05/21 Marija Edgar APRN BOWLING PIN REFINISHER Assigned PCP 06/08/20 04/29/23 Mynor Broussard MD 6[address] [facility] 500 [place] [address] Assigned Surgical Provider 06/01/20 11/28/21 Keisha Dotson MD 909 [place] [address] Assigned Neuroscience Provider 06/04/20 04/01/23 Mary Mejia Financial Resource Worker 08/07/20 08/21/20 Stacey Briones, BLUEPRINTING MACHINE OPERATOR Lead Line Locator Primary Care - CC 08/11/2012/30 Lesley Guillermo, [...] Desir, [facility] [address] [place], [place] [address] Pharmacist Pharmacist 04/17/21 Rain Galaviz PA-C [address] [place] [address] [address] [place], [place] [phone] Physician Electrical Engineering Technologist Dermatology 04/28/21 Summer Lara MD [address] [place] [address] [phone] Assigned OBGYN Provider 05/10/2105/23 Summer Lara MD [address] [place] [address] [phone] Assigned OBGYN Provider 05/31/21 2 Summer Lara MD [address] [place] [address] [phone] Assigned OBGYN Provider 05/24/2105/30 Tavia Wyatt MD [address] [place] [address] [phone] Dermatology 07/14/21 Johnny Murillo MD [address] [facility] [address] [place], [place] 909144 Assigned Musculoskeletal Provider 08/30/21 03/17/22 Erica Farrell APRN BOWLING PIN REFINISHER [address] [facility] [address] [place] [address] Nurse Practitioner Cardiovascular Disease 09/09/21 Teres[address] [facility] [address] [facility] [address] [place] [phone] Pharmacist Pharmacist 09/24/21 09/29/21 Tavia Wyatt MD [address] [place], [place] 092850 Assigned Surgical Provider 11/29/21 05/07/22 [facility] [address] [place], [place] 4[address]66 Assigned MTM Pharmacist 01/02/22 Rich Barrett MD [address] [facility] [address] [place], [place] [phone] Physician Ophthalmology 01/21/22 Neil Kent MD 500 [place], [place] [phone] Dermatology 02/24/22 Roney Story DPM [address] [facility] [address] [place], [place] [address] Assigned Musculoskeletal Provider 03/20/22 08/13/22 Erica Farrell APRN BOWLING PIN REFINISHER 1700 [place] [address] Assigned Heart and Vascular Provider 04/03/22 04/16/22 Diana Desir, [facility] [address] [place] [address] Assigned MTM Pharmacist 04/07/22 Jelena David OD [address] [facility] [place] [address] Assigned Surgical Provider 05/08/22 10/08/22 Galo Burrell MD Assigned Heart and Vascular Provider 04/17/22 06/11/22 Livan Sharif MD [address] [place] [address] Cardiovascular Disease 05/14/22 Livan Sharif MD [address] [place] [address] Assigned Heart and Vascular Provider 06/12/22 07/23/22 Catherine Cm MD [address] [place] [address] Cardiovascular Disease 07/21/22 Valery Veronica, PAUcheC 909 [place] [address] Physician Electrical Engineering Technologist Dermatology 07/21/22 IsCatherine hobbs MD [address] [facility]00 [place] [address] Assigned Heart and Vascular Provider 07/24/22 11/05/22 Johnny Murillo MD [address] [phone] Assigned Musculoskeletal Provider 08/14/22 10/08/22 Brea Quinn APRN BOWLING PIN REFINISHER 500 [place], [place] 78[address]65 Nurse Practitioner Dermatology 09/21/22 Brea Quinn APRN BOWLING PIN REFINISHER 6401 [facility] [place] 542332 Assigned Surgical Provider 10/09/22 05/01/24 [place] [address] 398[address] Assigned Musculoskeletal Provider 10/09/22 05/01/24 Livan Sharif MD [address] [facility]00 [place] 239225 Assigned Heart and Vascular Provider 11/06/22 11/12/22 Catherine Cm MD [address] [facility]00 [place] 959515 Assigned Heart and Vascular Provider 11/13/22 05/27/23 Sydnie Martinez RN Personal Advocate & Liaison (PAL) Family Medicine 03/28/23 07/31/23 Alfonso Renteria MD [address] [facility] [address] 200 [place] [address] Assigned Neuroscience Provider 04/02/23 Cheng Todd PA-C [address] [place] [address] Assigned PCP 04/30/23 07/15/23 Radha Lomeli APRN BOWLING PIN REFINISHER [address] [facility] [address] [place], [place] [address] Assigned Heart and Vascular Provider 05/28/23 Jelena David OD [address] [facility] [place] [address] Ophthalmology 06/15/23 Pao Joseph, VJ Personal Advocate & Liaison (PAL) Nurse 08/01/23 11/07/23 Esha Grimm PA-C [address] [place] [address] Assigned PCP 07/16/23 Valery Veronica PA-C [address] [place] [address] 595265 Physician Electrical Engineering Technologist Dermatology 09/19/23 Rey Tay MD [address] [place] [address] [phone] Gastroenterology 09/20/23 Rocky Zepeda DO [address] [place] [address] [phone] Physician Gastroenterology 09/20/23 Philip Dumont MD 516 [place] [address] Physician Ophthalmology 09/22/23 Meredith Carrera PA-C 909 [place] [address] Assigned Gastroenterology Provider 11/01/23 Neil Kent MD [address] [address] Dermatology 11/02/23 [place] [address] 633607 Neurological Surgery 12/26/23 Audrey Waite PA-C [address] [place] [address] Physician Electrical Engineering Technologist Dermatology 02/28/24 Valery Veronica PA-C [address] [place] [address] Physician Electrical Engineering Technologist Dermatology 04/10/24 Herminia Hatch MD [facility]5 [place] [address] Assigned Rheumatology Provider 07/02/24 documented as of this encounter
--- OUTSIDE RECORDS SUMMARY | 2024-08-28 19:04 | XMS_ITS | Encounter Summary ---
Author Organization [facility] Address [address] [place] [address] Care Team Providers Care Nuclear Station Operator Name Role Phone Lita Oseguera Unavailable Unavailable Marija Edgar APRN REFINERY OPERATOR REFORMING UNIT Primary Care Provider + Marija Edgar APRN REFINERY OPERATOR REFORMING UNIT Unavailable [phone] Mynor Broussard MD Unavailable [phone] Keisha Dotson MD Unavailable [phone] Galo Burrell MD Unavailable Unavailable Diana Desir [facility] Unavailable Rain Galaviz PA-C Unavailable Summer Lara MD Unavailable Tavia Wyatt MD Unavailable Johnny Murillo MD Unavailable Erica Farrell APRN REFINERY OPERATOR REFORMING UNIT Unavailable Tavia Wyatt MD Unavailable Diana Desir [facility] Unavailable Rich Barrett MD Unavailable [phone] Neil Kent MD Unavailable Roney Story DPM Unavailable Erica Farrell DIAMOND SANDER REFINERY OPERATOR REFORMING UNIT Unavailable Diana Desir [facility] Unavailable Jelena David OD Unavailable Galo Burrell MD Unavailable Unavailable Livan Sharif MD Unavailable Livan Sharif MD Unavailable Catherine Cm MD Unavailable + Valery Veronica PA-C Unavailable [phone] Catherine Cm MD Unavailable + Johnny Murillo MD Unavailable [phone] Brea Quinn DIAMOND SANDER REFINERY OPERATOR REFORMING UNIT Unavailable [phone] Brea Quinn DIAMOND SANDER REFINERY OPERATOR REFORMING UNIT Unavailable [phone] Jose Francisco Johnson MD Unavailable Livan Sharif MD Unavailable + IsCatherine hobbs MD Unavailable + Sydnie Martinez RN Unavailable Unavailable Alfonso Renteria MD Unavailable Esha Grimm PA-C Primary Care Provider Cheng Todd PA-C Unavailable Radha Lomeli DIAMOND SANDER REFINERY OPERATOR REFORMING UNIT Unavailable [phone] Jelena David OD Unavailable Pao Joseph RN Unavailable Unavailable Esha Grimm PA-C Unavailable Valery Veronica PA-C Unavailable [phone] Rey Tay MD Unavailable Rocky Zepeda DO Unavailable Philip Dumont MD Unavailable Meredith Carrera PA-C Unavailable [phone] Neil Kent MD Unavailable Juan Pablo Emmanuel MD Unavailable [phone] Audrey Waite PA-C Unavailable [phone] Valery Veronica PA-C Unavailable [phone] Herminia Hatch MD Unavailable Encounter Details Date Type Department Care Team (Late st Contact Info) Description 11/16/2021 [facility] Medical Advice [address] [address] [facility] [address] [place] [address] Social History Tobacco Use Types Packs/Day Years [...] How often do you attend baptism or restoration serv ices? Never 09/22/2021 Do [...] in a retirement (including now)? No 09/22/2021 Lucerne Depression Scale Answer Date Recorded Lucerne Depression Score 5 01/14/2021 Last EPDS Self Harm Result Not on file 01/14 Education Answer Date Recorded What is the highest level of school you have completed or the highest degree you have received? 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 COMPOSITION TILE LAYER Gender Identity Female 03/02/2021 5:45 PM [...] Office Visit [facility] Neurology Clinics [address], [address] [place] [address] [place] [address] [place] [address] Johnny Penn MD [address] [place] [address] documented as of this encounter Visit Diagnoses Not on filedocumented in this encounter Additional Health Concerns Infection Onset Date Last Indicated Resolved Time Rule Out COVID-19 12/18/2021 12/18/2021 12/19/2021 11:34 AM CDT Rule Out COVID-19 02/24/2022 02/24/2022 02/25/2022 1:08 PM CDT Rule Out COVID-19 04/26/2022 04/26/2022 04/26/2022 6:47 AM CDT Rule Out COVID-19 05/17/2022 05/17/2022 05/17/2022 10:20 PM COMPOSITION TILE LAYER Rule Out COVID-19 06/09/2022 06/09/2022 06/09/2022 9:35 AM COMPOSITION TILE LAYER COVID-19 06/09/2022 06/09/2022 06/30/2022 11:4 1 PM COMPOSITION TILE LAYER Rule Out COVID-19 11/10/2022 11/10/2022 11/11/2022 12:17 PM CDT Rule Out COVID-19 03/07/2023 03/07/2023 03/07/2023 1:20 PM CDT Rule Out COVID-19 12/26/2023 12/26/2023 12/26/2023 9:50 AM CDT Rule Out COVID-19 04/09/2024 04/09/2024 04/10/2024 6:48 PM CDT Assessment Noted Time PHQ-9 Depression Total Score: 2 04/02/20 10:19 AM CDT documented as of this encounter Care Teams Nuclear Station Operator Relationship Specialty Start Date End Date Marija Edgar APRN REFINERY OPERATOR REFORMING UNIT PCP - General Nurse Practitioner 04/30/20 04/14/23 Esha Grimm PA-C [address] [place] [address] PCP - General Family Medicine 05/04/23 Lita Oseguera Personal Advocate & Liaison (PAL) 02/28/20 03/27/23 Marija Edgar APRN REFINERY OPERATOR REFORMING UNIT Assigned PCP 06/08/20 04/29/23 Mynor Broussard MD [address] [address] Assigned Surgical Provider 06/01/20 11/28/21 Keisha Dotson MD 9 [place] [address] Assigned Neuroscience Provider 06/04/20 04/01/23 Galo Burrell MD Assigned Heart and Vascular Provider 10/05/20 04/02/22 Diana Desir, [facility] [address] [place] [address] Pharmacist Pharmacist 04/17/21 Rain Galaviz PA-C [address] [place] [address] [address] [place] [address] Physician Client Technical Professional Dermatology 04/28/21 Summer Lara MD [address] [place] [address] 216614 Assigned OBGYN Provider 05/31/21 9 2 Tavia Wyatt MD [address] [place] [address] [id number] Dermatology 07/14/21 Johnny Murillo MD [facility] [address] [place], [place] [address] Assigned Musculoskeletal Provider 08/30/21 03/17/22 Erica Farrell APRN REFINERY OPERATOR REFORMING UNIT [address] [facility] [address] [place] [address] Nurse Practitioner Cardiovascular Disease 09/09/21 Tavia Wyatt MD [address] [place], [place] 175250 Assigned Surgical Provider 11/29/21 05/07/22 Diana Desir, [facility] 3033 [place], [place] 0[address]176 Assigned MTM Pharmacist 01/02/22 Rich Barrett MD [address] [address] Physician Ophthalmology 01/21/22 Neil Kent MD 500 [place], [place] 18[address]95 Dermatology 02/24/22 Roney Story DPM [address] [facility] [address] [place], [place] 9[address]37 Assigned Musculoskeletal Provider 03/20/22 08/13/22 Erica Farrell APRN REFINERY OPERATOR REFORMING UNIT 1700 [place] [address] Assigned Heart and Vascular Provider 04/03/22 04/16/22 Diana Desir [facility] [address] [place] [address] Assigned MTM Pharmacist 04/07/22 Jelena David OD [address] [facility] [place] [address] Assigned Surgical Provider 05/08/22 10/08/22 Galo Burrell MD Assigned Heart and Vascular Provider 04/17/22 06/11/22 Livan Sharif MD [address] [place] [address] Cardiovascular Disease 05/14/22 Lvian Sharif MD [address] [place] [address] Assigned Heart and Vascular Provider 06/12/22 07/23/22 Catherine Cm MD [address] [place], [place] [address] Cardiovascular Disease 07/21/22 Valery Veronica, PAUcheC 909 [place], [place] [address] Physician Client Technical Professional Dermatology 07/21/22 Catherine Cm MD [address] [place] [address] Assigned Heart and Vascular Provider 07/24/22 11/05/22 Johnny Murillo MD [address] [place] [address] Assigned Musculoskeletal Provider 08/14/22 10/08/22 Brea Quinn APRN REFINERY OPERATOR REFORMING UNIT 500 [place] [address] Nurse Practitioner Dermatology 09/21/22 Brea Quinn APRN REFINERY OPERATOR REFORMING UNIT 6401 [facility] [place] [address] Assigned Surgical Provider 10/09/22 05/01/24 [place] [address] [address] [facility] 300 [place] [address] Assigned Musculoskeletal Provider 10/09/22 05/01/24 Livan Sharif MD [address] [facility] [address] [place] [address] Assigned Heart and Vascular Provider 11/06/22 11/12/22 Catherine Cm MD [address] [facility]00 [place] [address] Assigned Heart and Vascular Provider 11/13/22 05/27/23 Sydnie Martinez RN Personal Advocate & Liaison (PAL) Family Medicine 03/28/23 07/31/23 Alfonso Renteria MD 5775 [facility] 200 [place], [place] [address] Assigned Neuroscience Provider 04/02/23 Cheng Todd PA-C [address] [place] [address] Assigned PCP 04/30/23 07/15/23 Radha Lomeli APRN REFINERY OPERATOR REFORMING UNIT [address] [place], [place] 648[address] Assigned Heart and Vascular Provider 05/28/23 Jelena David OD [address] [facility] [place] [address] MD Ophthalmology 06/15/23 Pao Joseph, VJ Personal Advocate & Liaison (PAL) Nurse 08/01/23 11/07/23 Esha Grimm PA-C [address] [place] [address] Assigned PCP 07/16/23 Valery Veronica PA-C [address] [place] [address] 160535 Physician Client Technical Professional Dermatology 09/19/23 Rey Tay MD [address] [place] [address] 373435 Gastroenterology 09/20/23 Rocky Zepeda DO [address] [place] [address] 246635 Physician Gastroenterology 09/20/23 Philip Dumont MD [address] [place] [address] 673035 Physician Ophthalmology 09/22/23 Meredith Carrera PA-C [address] [place] [address] Assigned Gastroenterology Provider 11/01/23 Neil Kent MD [address] [address] Dermatology 11/02/23 [place] [address] [place] [address] Neurological Surgery 12/26/23 Audrey Waite PA-C 500 [place] [address] Physician Client Technical Professional Dermatology 02/28/24 Valery Veronica PA-C 249950 [address], [place] [address] Physician Client Technical Professional Dermatology 04/10/24 Herminia Hatch MD [facility]5 [place] [address] Assigned Rheumatology Provider 07/02/24 documented as of this encounter
--- OUTSIDE RECORDS SUMMARY | 2024-08-28 19:04 | XMS_ITS | Encounter Summary ---
Author Organization [facility] Address [address] [place] [address] Care Team Providers Care Photography Instructor Name Role Phone Diana Desir [facility] Unavailable Rain Galaviz PA-C Unavailable Tavia Wyatt MD Unavailable Erica Farrell APRN HEMATOLOGY ONCOLOGY CONSULTANT Unavailable Rich Barrett MD Unavailable [phone] Neil Kent MD Unavailable Diana Desir [facility] Unavailable Livan Sharif MD Unavailable Catherine Cm MD Unavailable + Valery Veronica-C Unavailable Brea Quinn COMBINATION OPERATOR HEMATOLOGY ONCOLOGY CONSULTANT Unavailable Brea Quinn COMBINATION OPERATOR HEMATOLOGY ONCOLOGY CONSULTANT Unavailable Jose Francisco Johnson MD Unavailable Sydnie Martinez RN Unavailable Unavailable Alfonso Renteria MD Unavailable [phone] Esha Grimm PA-C Primary Care Provider Cheng Todd PA-C Unavailable Radha Lomeli APRN HEMATOLOGY ONCOLOGY CONSULTANT Unavailable Jelena David OD Unavailable Pao Joseph RN Unavailable Unavailable Esha Grimm PA-C Unavailable [phone] Valery Veronica PA-C Unavailable Rey Tay MD Unavailable Rocky Zepeda DO Unavailable Philip Dumont MD Unavailable [phone] Meredith Carrera PA-C Unavailable [phone] Neil Kent MD Unavailable Juan Pablo Emmanuel MD Unavailable Audrey Waite PA-C Unavailable [phone] JeremíasValery damon PA-C Unavailable Herminia Hatch MD Unavailable Reason for Visit * Reason Onset Date Comments Appointment 06/17/2023 Encounter Details Date Type Department Care Team (Late st Contact Info) Description 06/17/2023 Telephone [facility] [address] [place] [address] Esha Grimm PA-C [id number] [place] [address] Appointment Social History Tobacco Use Types [...] Recorded PHQ-2 Score 0 06/20/2023 [facility] - Occupational Stress [...] exercise at this level? 30 min 03/10/2023 Motley Depression Scale Answer Date Recorded Motley Depression Score 5 01/14/2021 Last EPDS Self [...] CDT Legal Sex Female 4:13 AM GAS FITTER APPRENTICE Gender Identity Female 03/02/2021 5:45 PM CDT Sexual Orientation Straight 02/28/2020 12 :51 AM CDT documented as of this encounter Miscellaneous Notes * Telephone Encounter - Lulu Day - 06/17/2023 7:19 AM CST [facility] doesn't have anything, we are down providers and they are all full today Lulu Day/ Slot Ambassador FITTER APPRENTICE * Telephone Encounter - Rosio Eller - [...] we send this information to you in [employer] or would you prefer to receive a phone call?: Patient would prefer a phone call Okay to leave a detailed message?: Yes at Home number on file [phone] (home) Call taken on 06/17/2023 at 7:13 AM by Rosio Eller FITTER APPRENTICE documented in this encounter Plan of Treatment Upcoming Encounters Date Type Department Care Team (Late st Contact Info) Description 10/23/2024 9:30 AM CDT Office Visit [facility] Neurology [address], [address] [place] [phone] [place] [address] [address] Johnny Penn MD 6545 [place], [place] 78[address] documented as of this encounter Visit Diagnoses Not on filedocumented in this encounter Additional Health Concerns Infection Onset Date Last Indicated Resolved Time Rule Out COVID-19 12/26/2023 12/26/2023 12/26/2023 9:50 AM CDT Rule Out COVID-19 04/09/2024 04/09/2024 04/10/2024 6:48 PM CDT Assessment Noted Time PHQ-9 Depression Total Score: 6 05/16/20 23 9:29 AM GAS FITTER APPRENTICE documented as of this encounter Care Teams Photography Instructor Relationship Specialty Start Date End Date Esha Grimm PA-C [address] [place] [address] PCP - General Family Medicine 05/04/23 Diana Desir, [facility] 3033 [place] [address] Pharmacist Pharmacist 04/17/21 Rain Galaviz PA-C [address] [place] [address] [address] [place] [address] Physician Tire Repairer Dermatology 04/28/21 Tavia Wyatt MD [address] [place] [address] [address] [place] [id number] Dermatology 07/14/21 Erica Farrell APRN HEMATOLOGY ONCOLOGY CONSULTANT [address] [place] 6[address]885 Nurse Practitioner Cardiovascular Disease 09/09/21 Rich Barrett MD 516 [facility] 9A [place], [place] [address] Physician Ophthalmology 01/21/22 Neil Kent MD 500 [place], [place] 135065 Dermatology 02/24/22 [facility] 3033 [place] [address] Assigned MTM Pharmacist 04/07/22 Livan Sharif MD [address] [place] [address] Cardiovascular Disease 05/14/22 Catherine Cm MD 6405 [facility] [address] [place] [address] Cardiovascular Disease 07/21/22 Valery Veronica PA-C 909 [place] [address] Physician Tire Repairer Dermatology 07/21/22 Brea Quinn APRN HEMATOLOGY ONCOLOGY CONSULTANT [address] [place] [address] Nurse Practitioner Dermatology 09/21/22 Brea Quinn APRN HEMATOLOGY ONCOLOGY CONSULTANT 6401 [place] [address] Assigned Surgical Provider 10/09/22 05/01/24 [place] [address] [facility] 300 [place] [address] Assigned Musculoskeletal Provider 10/09/22 05/01/24 Sydnie Martinez RN Personal Advocate & Liaison (PAL) Family Medicine 03/28/23 07/31/23 Alfonso Renteria MD 5775 [facility] 200 [place] [address] Assigned Neuroscience Provider 04/02/23 Cheng Todd PA-C [address] [place] [address] [id number] Assigned PCP 04/30/23 07/15/23 Radha Lomeli APRN HEMATOLOGY ONCOLOGY CONSULTANT [address] [place] [id number] [place] [address] Assigned Heart and Vascular Provider 05/28/23 Jelena David OD [address] [place] [address] MD Ophthalmology 06/15/23 Pao Joseph, RN Personal Advocate & Liaison (PAL) Nurse 08/01/23 11/07/23 Esha Grimm PA-C [address] [place] [address] Assigned PCP 07/16/23 Valery Veronica PA-C [address] [place] [address] Physician Tire Repairer Dermatology 09/19/23 Rey Tay MD [address] [place] [address] Gastroenterology 09/20/23 Rocky Zepeda DO [address] [place] [address] 206345 Physician Gastroenterology 09/20/23 Philip Dumont MD [address] [place] [address] Physician Ophthalmology 09/22/23 Meredith Carrera PA-C [address] [place] [address] 601065 Assigned Gastroenterology Provider 11/01/23 Neil Kent MD [address] 1758[address] Dermatology 11/02/23 [place] [address] 941817 Neurological Surgery 12/26/23 Audrey Waite PAUcheC 500 [place], [place] 914875 Physician Tire Repairer Dermatology 02/28/24 Valery Veronica PA-C [address] [place] [address] Physician Tire Repairer Dermatology 04/10/24 Herminia Hatch MD [facility]5 [place], [place] [address] Assigned Rheumatology Provider 07/02/24 documented as of this encounter
--- OUTSIDE RECORDS SUMMARY | 2024-08-28 19:04 | XMS_ITS | Encounter Summary ---
Author Organization [facility] Address [address] [place] [address] Care Team Providers Care Admissions Consultant Name Role Phone Diana Desir [facility] Unavailable Rain Galaviz PA-C Unavailable Tavia Wyatt MD Unavailable Erica Farrell APRN MOBILE PARAMEDICAL EXAMINER Unavailable Rich Barrett MD Unavailable [phone] Neil Kent MD Unavailable Diana Desir [facility] Unavailable Livan Sharif MD Unavailable Catherine Cm MD Unavailable + Valery Veronica-C Unavailable Brea Qiunn SHIFT SUPERVISOR MOBILE PARAMEDICAL EXAMINER Unavailable Brea Quinn SHIFT SUPERVISOR MOBILE PARAMEDICAL EXAMINER Unavailable Jose Francisco Johnson MD Unavailable Sydnie Martinez RN Unavailable Unavailable Alfonso Renteria MD Unavailable [phone] Esha Grimm PA-C Primary Care Provider [phone] Cheng Todd PA-C Unavailable [phone] Radha Lomeli APRN MOBILE PARAMEDICAL EXAMINER Unavailable Jelena David OD Unavailable Pao Joseph RN Unavailable Unavailable Esha Grimm PA-C Unavailable [phone] Valery Veronica PA-C Unavailable Rey Tay MD Unavailable Rocky Zepeda DO Unavailable Philip Dumont MD Unavailable [phone] Meredith Carrera PA-C Unavailable [phone] Neil Kent MD Unavailable Juan Pablo Emmanuel MD Unavailable Audrey Waite PA-C Unavailable JeremíasValery damon PA-C Unavailable Herminia Hatch MD Unavailable Encounter Details Date Type Department Care Team (Late st Contact Info) Description 06/15/2023 MyC Medical Advice [facility] G[facility]ology [facility] [address] [address] Doris Levi Social History Tobacco [...] 03/10/2023 How often do you attend [facility] or confucianist services? 1 to 4 times per year 03/10/2023 Do you belong to any clubs o r organizations such as uatsdin groups, unions, fraFind Invest Grow (FIG) or athletic groups, or school groups? No [...] Date Recorded PHQ-2 Score 1 05/16/2023 [facility] - Occupational Stress Questionnaire [...] exercise at this level? 30 min 03/10/2023 Phelan Depression Scale Answer Date Recorded Phelan Depression Score 5 01/14/2021 Last EPDS Self [...] CDT Legal Sex Female 4:13 AM NON MORSE INTERCEPT TECHNICIAN Gender Identity Female 03/02/2021 5:45 PM CDT Sexual Orientation Straight 02/28/2020 12 :51 AM CDT documented as of this encounter Plan of Treatment Upcoming Encounters Date Type Department Care Team (Late st Contact Info) Description 10/23/2024 9:30 AM CDT Office Visit [facility] Neurology [facility] [address], [address] [place] [address] [place] [address] [place] [address] Johnny Penn MD [address] [place] [address] documented as of this encounter Visit Diagnoses Not on filedocumented in this encounter Additional Health Concerns Infection Onset Date Last Indicated Resolved Time Rule Out COVID-19 12/26/2023 12/26/2023 12/26/2023 9:50 AM CDT Rule Out COVID-19 04/09/2024 04/09/2024 04/10/2024 6:48 PM CDT Assessment Noted Time PHQ-9 Depression Total Score: 6 05/16/20 9:29 AM NON MORSE INTERCEPT TECHNICIAN documented as of this encounter Care Teams Admissions Consultant Relationship Specialty Start Date End Date Esha Grimm PA-C [address] [place] [address] PCP - General Family Medicine 05/04/23 Diana Desir, [facility] 3033 [place] [address] Pharmacist Pharmacist 04/17/21 Rain Galaviz PA-C [address] [place] [address] [address] [place] [address] Physician School Bus Aide Dermatology 04/28/21 Tavia Wyatt MD [address] [place] [address] [address] [place] [address] Dermatology 07/14/21 Erica Farrell APRN MOBILE PARAMEDICAL EXAMINER 6405 [facility] [address] [place] [address] Nurse Practitioner Cardiovascular Disease 09/09/21 Rich Barrett MD 6 [facility] 9A [place] [address] Physician Ophthalmology 01/21/22 Neil Kent MD 500 [place], [place] 908545 Dermatology 02/24/22 Diana Desir, [facility] 3033 [place] [address] Assigned MTM Pharmacist 04/07/22 Livan Sharif MD [address] [facility] [place] 4[address] Cardiovascular Disease 05/14/22 Catherine Cm MD [address] [place] [facility] [place] [address] Cardiovascular Disease 07/21/22 Valery Veronica, PA-C 909 [place], [place] [address] Physician School Bus Aide Dermatology 07/21/22 Brea Quinn APRN MOBILE PARAMEDICAL EXAMINER 500 [place] [address] Nurse Practitioner Dermatology 09/21/22 Brea Quinn APRN MOBILE PARAMEDICAL EXAMINER 6401 [facility] [place] 12[address]22 Assigned Surgical Provider 10/09/22 05/01/24 [place] [address] [place] [place] [address] Assigned Musculoskeletal Provider 10/09/22 05/01/24 Sydnie Martinez, RN Personal Advocate & Liaison (PAL) Family Medicine 03/28/23 07/31/23 Alfonso Renteria MD 5775 [facility] 200 [place] [address] Assigned Neuroscience Provider 04/02/23 Cheng Todd PA-C [address] [place] [address] [id number] Assigned PCP 04/30/23 07/15/23 Radha Lomeli APRN MOBILE PARAMEDICAL EXAMINER 6405 [facility] [address] [place], [place] 606[address] Assigned Heart and Vascular Provider 05/28/23 Jelena David OD [address] [facility] [place] [address] Ophthalmology 06/15/23 Pao Joseph, VJ Personal Advocate & Liaison (PAL) Nurse 08/01/23 11/07/23 Esha Grimm PA-C [address] [place] [phone] Assigned PCP 07/16/23 Valery Veronica PA-C [address] [place] [address] 233575 Physician School Bus Aide Dermatology 09/19/23 Rey Tay MD 9 [place], [place] 5[address] Gastroenterology 09/20/23 Rocky Zepeda DO 500 [place] [address] Physician Gastroenterology 09/20/23 Philip Dumont MD 516 [place] [address] Physician Ophthalmology 09/22/23 Meredith Carrera PA-C 909 [place] [address] Assigned Gastroenterology Provider 11/01/23 Neil Kent MD [address] [address] Dermatology 11/02/23 [place] [address] [place] [address] [address] Neurological Surgery 12/26/23 Audrey Waite PA-C 500 [place] [address] Physician School Bus Aide Dermatology 02/28/24 Valery Veronica PA-C [address] [place] [address] Physician School Bus Aide Dermatology 04/10/24 Herminia Hatch MD [facility]5 [place], [place] [address] Assigned Rheumatology Provider 07/02/24 documented as of this encounter
--- OUTSIDE RECORDS SUMMARY | 2024-08-28 19:04 | XMS_ITS | Encounter Summary ---
Author Organization [facility] Address [address] [place] [address] Care Team Providers Care Instructor Product Inspection Name Role Phone Lita Oseguera Unavailable Unavailable Marija Edgar APRN RETAIL WORKER Primary Care Provider + Marija Edgar APRN RETAIL WORKER Unavailable [phone] Keisha Dotson MD Unavailable Galo Burrell MD Unavailable Unavailable Diana Desir [facility] Unavailable Rain Galaviz PA-C Unavailable Summer Lara MD Unavailable [phone] Tavia Wyatt MD Unavailable Johnny Murillo MD Unavailable Erica Farrell APRN RETAIL WORKER Unavailable Tavia Wyatt MD Unavailable Diana Desir [facility] Unavailable Rich Barrett MD Unavailable Neil Kent MD Unavailable Roney Story DPM Unavailable [phone] Erica Farrell APRN RETAIL WORKER Unavailable + Diana Desir [facility] Unavailable Jelena David OD Unavailable Galo Burrell MD Unavailable Unavailable HoLivan MD Unavailable Livan Sharif MD Unavailable IskoCatherine boothe MD Unavailable + Valery Veronica PA-C Unavailable [phone] Catherine Cm MD Unavailable + Johnny Murillo MD Unavailable [phone] Brea Quinn MODEL MAKER PLASTIC RETAIL WORKER Unavailable [phone] Brea Quinn MODEL MAKER PLASTIC RETAIL WORKER Unavailable [phone] Jose Francisco Johnson MD Unavailable Livan Sharif MD Unavailable + IsCatherine boothe MD Unavailable + Sydnie Martinez RN Unavailable Unavailable Alfonso Renteria MD Unavailable Esha Grimm PA-C Primary Care Provider Cheng Todd PA-C Unavailable Radha Lomeli MODEL MAKER PLASTIC RETAIL WORKER Unavailable [phone] Jelena David OD Unavailable Pao Joseph RN Unavailable Unavailable Esha Grimm PA-C Unavailable [phone] Valery Veronica PA-C Unavailable [phone] Rey Tay MD Unavailable Rocky Zepeda DO Unavailable Philip Dumont MD Unavailable [phone] Meredith Carrera PA-C Unavailable [phone] Neil Kent MD Unavailable Juan Pablo Emmanuel MD Unavailable [phone] Audrey Waite PA-C Unavailable [phone] Valery Veronica PA-C Unavailable [phone] Herminia Hatch MD Unavailable Encounter Details Date Type Department Care Team (Late st Contact Info) Description 12/18/2021 Telephone [facility] [id number] [place] [phone] Lauren Caludio PA-C [address] [place] [address] Social History Tobacco Use Types Packs/Day [...] How often do you attend jew or jewish serv ices? Never 09/22/2021 Do [...] 2 12/18/2021 [facility] - [...] a group home (including now)? No 09/22/2021 [place] Depression Scale Answer Date Recorded [place] Depression Score 5 01/14/2021 Last EPDS Self Harm Result Not on file 01/14 Education Answer Date Recorded What is the highest level of school you have completed or the highest degree you have received? 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 WOOD GETTER Gender Identity Female 03/02/2021 5:45 PM CDT [...] be reached at: Home number on file [phone] (home) Best Time: ANYTIME Can we leave a detailed message on this number? YES Call taken on 12/18/2021 at 11:01 AM by Amalia Deluca documented in this encounter Plan of Treatment Upcoming Encounters Date Type Department Care Team (Late st Contact Info) Description 10/23/2024 9:30 AM CDT Office Visit [facility] Neurology [facility] [address] [facility], [address] [place] [address] [place] [address] [place], [place] [phone] Johnny Penn MD [address] [place], [place] [id number] documented as of this encounter Visit Diagnoses Not on filedocumented in this encounter Additional Health Concerns Infection Onset Date Last Indicated Resolved Time Rule Out COVID-19 12/18/2021 12/18/2021 12/19/2021 11:34 AM CDT Rule Out COVID-19 02/24/2022 02/24/2022 02/25/2022 1:08 PM CDT Rule Out COVID-19 04/26/2022 04/26/2022 04/26/2022 6:47 AM CDT Rule Out COVID-19 05/17/2022 05/17/2022 05/17/2022 10:20 PM WOOD GETTER Rule Out COVID-19 06/09/2022 06/09/2022 06/09/2022 9:35 AM WOOD GETTER COVID-19 06/09/2022 06/09/2022 06/30/2022 11:4 1 PM WOOD GETTER Rule Out COVID-19 11/10/2022 11/10/2022 11/11/2022 12:17 PM CDT Rule Out COVID-19 03/07/2023 03/07/2023 03/07/2023 1:20 PM CDT Rule Out COVID-19 12/26/2023 12/26/2023 12/26/2023 9:50 AM CDT Rule Out COVID-19 04/09/2024 04/09/2024 04/10/2024 6:48 PM CDT Assessment Noted Time PHQ-9 Depression Total Score: 2 12/19/19 2:50 PM CDT documented as of this encounter Care Teams Instructor Product Inspection Relationship Specialty Start Date End Date Marija Edgar APRN RETAIL WORKER PCP - General Nurse Practitioner 04/30/20 04/14/23 Esha Grimm PA-C [address] [place] [phone] PCP - General Family Medicine 05/04/23 Lita Oseguera Personal Advocate & Liaison (PAL) 02/28/20 03/27/23 Marija Edgar APRN RETAIL WORKER Assigned PCP 06/08/20 04/29/23 Keisha Dotson MD [address] [place], [place] 7734[address] Assigned Neuroscience Provider 06/04/20 04/01/23 Galo Burrell MD Assigned Heart and Vascular Provider 10/05/20 04/02/22 Diana Desir, [facility] [address] [place] [address] Pharmacist Pharmacist 04/17/21 Rain Galaviz PA-C [address] [facility] [place] [address] Physician Pharmacy Scheduler Dermatology 04/28/21 Summer Lara MD [address] [place] [address] Assigned OBGYN Provider 05/31/21 2 Tavia Wyatt MD [address] [place] [address] Dermatology 07/14/21 Johnny Murillo MD [address] [place] [address] Assigned Musculoskeletal Provider 08/30/21 03/17/22 Erica Farrell APRN RETAIL WORKER [address] [place] [address] Nurse Practitioner Cardiovascular Disease 09/09/21 Tavia Wyatt MD [address] [place] [address] Assigned Surgical Provider 11/29/21 05/07/22 [facility] [address] [place] [address] Assigned MTM Pharmacist 01/02/22 Rich Barrett MD [address] [facility] [address] [place], [place] 6[address] Physician Ophthalmology 01/21/22 Neil Kent MD 500 [place], [place] 958595 Dermatology 02/24/22 Roney Story DPM [address] [facility] [address] [place] [address] Assigned Musculoskeletal Provider 03/20/22 08/13/22 Erica Farrell APRN RETAIL WORKER 17[address] [place] [address] Assigned Heart and Vascular Provider 04/03/22 04/16/22 Diana Desir, [facility] [address] [place] [address] Assigned MTM Pharmacist 04/07/22 Jelena David OD [address] [facility] [address] Assigned Surgical Provider 05/08/22 10/08/22 Galo Burrell MD Assigned Heart and Vascular Provider 04/17/22 06/11/22 Livan Sharif MD [address] [place] [address] Cardiovascular Disease 05/14/22 Livan Sharif MD [address] [place] [address] Assigned Heart and Vascular Provider 06/12/22 07/23/22 Catherine Cm MD [address] [place] [address] Cardiovascular Disease 07/21/22 Valery Veronica, PAUcheC 909 [place] [address] Physician Pharmacy Scheduler Dermatology 07/21/22 Catherine Cm MD [address] [place] [address] Assigned Heart and Vascular Provider 07/24/22 11/05/22 Johnny Murillo MD [address] [place] [address] Assigned Musculoskeletal Provider 08/14/22 10/08/22 Brea Quinn APRN RETAIL WORKER [address] [place] [address] Nurse Practitioner Dermatology 09/21/22 Brea Quinn APRN RETAIL WORKER [address] [place] [address] [place] [address] Assigned Surgical Provider 10/09/22 05/01/24 [place] [address] [place] [address] [address] Assigned Musculoskeletal Provider 10/09/22 05/01/24 Livan Sharif MD [address], [facility] [address] [place] [address] Assigned Heart and Vascular Provider 11/06/22 11/12/22 Catherine Cm MD [address] [facility] [address] [place] 4[address]25 Assigned Heart and Vascular Provider 11/13/22 05/27/23 Sydnie Martinez RN Personal Advocate & Liaison (PAL) Family Medicine 03/28/23 07/31/23 Alfonso Renteria MD [address] [facility] 200 [place] [address] Assigned Neuroscience Provider 04/02/23 Cheng Todd PA-C [address] [place] [address] Assigned PCP 04/30/23 07/15/23 Radha Lomeli APRN RETAIL WORKER [address] [facility] [address] [place] [address] Assigned Heart and Vascular Provider 05/28/23 Jelena David OD [address] [facility] [address] Ophthalmology 06/15/23 Pao Joseph, VJ Personal Advocate & Liaison (PAL) Nurse 08/01/23 11/07/23 Esha Grimm PA-C [address] [place] [address] Assigned PCP 07/16/23 Valery Veronica PA-C [address] [place] [address] 723975 Physician Pharmacy Scheduler Dermatology 09/19/23 Rey Tay MD [address] [place] [address] 121805 Gastroenterology 09/20/23 Rocky Zepeda DO [address] [place] [address] Physician Gastroenterology 09/20/23 Philip Dumont MD [address] [place] [address] Physician Ophthalmology 09/22/23 Meredith Carrera PA-C [address] [place] [address] Assigned Gastroenterology Provider 11/01/23 Neil Kent MD [address] [address] Dermatology 11/02/23 [place] [address] [place] [address] [address] Neurological Surgery 12/26/23 Audrey Waite PA-C [address] [place] [address] Physician Pharmacy Scheduler Dermatology 02/28/24 Valery Veronica PA-C 974031 [address], [place] [address] Physician Pharmacy Scheduler Dermatology 04/10/24 Herminia Hatch MD [facility] [place], [place] [address] Assigned Rheumatology Provider 07/02/24 documented as of this encounter
--- OUTSIDE RECORDS SUMMARY | 2024-08-28 19:04 | XMS_ITS | Encounter Summary ---
Author Organization [facility] Address [address] [place] [address] Care Team Providers Care Chief Of Field Operations Name Role Phone Lita Oseguera Unavailable Unavailable Marija Edgar APRN LEATHER COLORER Primary Care Provider + Marija Edgar APRN LEATHER COLORER Unavailable [phone] Mynor Broussard MD Unavailable [phone] Keisha Dotson MD Unavailable Galo Burrell MD Unavailable Unavailable Diana Desir [facility] Unavailable Rain Galaviz PA-C Unavailable Summer Lara MD Unavailable [phone] Tavia Wyatt MD Unavailable Johnny Murillo MD Unavailable Erica Farrell APRN LEATHER COLORER Unavailable Tavia Wyatt MD Unavailable Diana Desir [facility] Unavailable Rich Barrett MD Unavailable [phone] Neil Kent MD Unavailable Roney Story DPM Unavailable Erica Farrell FREELANCE WRITER LEATHER COLORER Unavailable Diana Desir [facility] Unavailable Jelena David OD Unavailable Galo Burrell MD Unavailable Unavailable Livan Sharif MD Unavailable Livan Sharif MD Unavailable Catherine Cm MD Unavailable + Valery Veronica PA-C Unavailable [phone] Catherine Cm MD Unavailable + Johnny Murillo MD Unavailable [phone] Brea Quinn FREELANCE WRITER LEATHER COLORER Unavailable [phone] Brea Quinn FREELANCE WRITER LEATHER COLORER Unavailable [phone] Jose Francisco Johnson MD Unavailable Livan Sharif MD Unavailable + IsCatherine hobbs MD Unavailable + Sydnie Martinez RN Unavailable Unavailable Alfonso Renteria MD Unavailable Esha Grimm PA-C Primary Care Provider Cheng Todd PA-C Unavailable Radha Lomeli FREELANCE WRITER LEATHER COLORER Unavailable [phone] Jelena David OD Unavailable Pao Joseph RN Unavailable Unavailable Esha Grimm PA-C Unavailable [phone] Valery Veronica PA-C Unavailable [phone] Rey Tay MD Unavailable Rocky Zepeda DO Unavailable Philip Dumont MD Unavailable Meredith Carrera PA-C Unavailable [phone] Neil Kent MD Unavailable Juan Pablo Emmanuel MD Unavailable [phone] Audrey Waite PA-C Unavailable [phone] Valery Veronica PA-C Unavailable [phone] Herminia Hatch MD Unavailable Encounter Details Date Type Department Care Team (Late st Contact Info) Description 11/04/2021 [facility] Medical Advice [address] [address] [facility] [address] [place] [address] Social History Tobacco Use Types Packs/Day Years [...] How often do you attend pentecostal or islam serv ices? Never 09/22/2021 Do [...] in a detention (including now)? No 09/22/2021 [place] Depression Scale Answer Date Recorded [place] Depression Score 5 01/14/2021 Last EPDS Self [...] CDT Office Visit [facility] [address], [address] [place] [address] [place] [address] [address] [place] [address] Johnny Penn MD [address] [place] [address] documented as of this encounter Visit Diagnoses Not on filedocumented in this encounter Additional Health Concerns Infection Onset Date Last Indicated Resolved Time Rule Out COVID-19 12/18/2021 12/18/2021 12/19/2021 11:34 AM CDT Rule Out COVID-19 02/24/2022 02/24/2022 02/25/2022 1:08 PM CDT Rule Out COVID-19 04/26/2022 04/26/2022 04/26/2022 6:47 AM CDT Rule Out COVID-19 05/17/2022 05/17/2022 05/17/2022 10:20 PM ROBOTIC WELDER Rule Out COVID-19 06/09/2022 06/09/2022 06/09/2022 9:35 AM ROBOTIC WELDER COVID-19 06/09/2022 06/09/2022 06/30/2022 11:4 1 PM ROBOTIC WELDER Rule Out COVID-19 11/10/2022 11/10/2022 11/11/2022 12:17 PM CDT Rule Out COVID-19 03/07/2023 03/07/2023 03/07/2023 1:20 PM CDT Rule Out COVID-19 12/26/2023 12/26/2023 12/26/2023 9:50 AM CDT Rule Out COVID-19 04/09/2024 04/09/2024 04/10/2024 6:48 PM CDT Assessment Noted Time PHQ-9 Depression Total Score: 2 04/02/20 10:19 AM CDT documented as of this encounter Care Teams Chief Of Field Operations Relationship Specialty Start Date End Date Marija Edgar APRN LEATHER COLORER PCP - General Nurse Practitioner 04/30/20 04/14/23 Esha Grimm PA-C [address] [place] [phone] PCP - General Family Medicine 05/04/23 Lita Oseguera Personal Advocate & Liaison (PAL) 02/28/20 03/27/23 Marija Edgar APRN LEATHER COLORER Assigned PCP 06/08/20 04/29/23 Mynor Broussard MD [address] [address] Assigned Surgical Provider 06/01/20 11/28/21 Keisha Dotson MD 9 [place] [address] Assigned Neuroscience Provider 06/04/20 04/01/23 Galo Burrell MD Assigned Heart and Vascular Provider 10/05/20 04/02/22 Diana Desir, [facility] [address] [place] [address] Pharmacist Pharmacist 04/17/21 Rain Galaviz PA-C [address] [place] [address] DR [address] [place] [address] Physician Durable Medical Equipment Repairer Dermatology 04/28/21 Summer Lara MD [address] [place] [address] 782524 Assigned OBGYN Provider 05/31/21 9 2 Tavia Wyatt MD [address] [place] [address] [id number] Dermatology 07/14/21 Johnny Murillo MD [facility] [address] [place], [place] [address] Assigned Musculoskeletal Provider 08/30/21 03/17/22 Erica Farrell APRN LEATHER COLORER [address] [facility] [address] [place] [address] Nurse Practitioner Cardiovascular Disease 09/09/21 Tavia Wyatt MD [address] [place], [place] 143450 Assigned Surgical Provider 11/29/21 05/07/22 Diana Desir, [facility] [address] [place], [place] 9[address] Assigned MTM Pharmacist 01/02/22 Rich Barrett MD [address] [address] Physician Ophthalmology 01/21/22 Neil Kent MD 500 [place], [place] [address]405 Dermatology 02/24/22 Roney Story DPM [address] [facility] [address] [place], [place] [address] Assigned Musculoskeletal Provider 03/20/22 08/13/22 Erica Farrell APRN LEATHER COLORER [address] [place] [address] Assigned Heart and Vascular Provider 04/03/22 04/16/[address] [facility] [address] [place] [address] Assigned MTM Pharmacist 04/07/22 Jelena David OD [address] [place] [address] Assigned Surgical Provider 05/08/22 10/08/22 Galo Burrell MD Assigned Heart and Vascular Provider 04/17/22 06/11/22 Livan Sharif MD [address] [place] [address] Cardiovascular Disease 05/14/22 Livan Sharif MD [address] [place] [address] Assigned Heart and Vascular Provider 06/12/22 07/23/22 Catherine Cm MD [address] [place], [place] [address] Cardiovascular Disease 07/21/22 Valery Veronica, PAUcheC 9[address] [place], [place] 4[address] Physician Durable Medical Equipment Repairer Dermatology 07/21/22 Catherine Cm MD [address] [place] [address] Assigned Heart and Vascular Provider 07/24/22 11/05/22 Johnny Murillo MD [address] [place] [address] Assigned Musculoskeletal Provider 08/14/22 10/08/22 Brea Quinn APRN LEATHER COLORER [address] [place] [address] Nurse Practitioner Dermatology 09/21/22 Brea Quinn APRN LEATHER COLORER 64[address] [facility] [place] [address] Assigned Surgical Provider 10/09/22 05/01/24 [place] [address] [facility] 300 [place] [address] Assigned Musculoskeletal Provider 10/09/22 05/01/24 Livan Sharif MD [address] [facility] [address] [place] [address] Assigned Heart and Vascular Provider 11/06/22 11/12/22 Catherine Cm MD [address] [facility]00 [place] [address] Assigned Heart and Vascular Provider 11/13/22 05/27/23 Sydnie Martinez RN Personal Advocate & Liaison (PAL) Family Medicine 03/28/23 07/31/23 Alfonso Renteria MD [address] [facility] 200 [place], [place] 786376 Assigned Neuroscience Provider 04/02/23 Cheng Todd PA-C [address] [place] [address] Assigned PCP 04/30/23 07/15/23 Radha Lomeli APRN LEATHER COLORER [address] [place], [place] 5[address] Assigned Heart and Vascular Provider 05/28/23 Jelena David OD [address] [place] [address] MD Ophthalmology 06/15/23 Pao Joseph, VJ Personal Advocate & Liaison (PAL) Nurse 08/01/23 11/07/23 Esha Grimm PA-C [address] [place] [address] Assigned PCP 07/16/23 Valery Veronica PA-C [address] [place] [address] 0904[address] Physician Durable Medical Equipment Repairer Dermatology 09/19/23 Rey Tay MD [address] [place] [address] 227355 Gastroenterology 09/20/23 Rocky Zepeda DO [address] [place] [address] 032555 Physician Gastroenterology 09/20/23 Philip Dumont MD [address] [place] [address] 796605 Physician Ophthalmology 09/22/23 Meredith Carrera PA-C [address] [place] [address] Assigned Gastroenterology Provider 11/01/23 Neil Kent MD [address] [address] Dermatology 11/02/23 [place] [address] [place] [address] Neurological Surgery 12/26/23 Audrey Waite PA-C 500 [place] [address] Physician Durable Medical Equipment Repairer Dermatology 02/28/24 Valery Veronica PA-C 027156 [address] [address] Physician Durable Medical Equipment Repairer Dermatology 04/10/24 Herminia Hatch MD [facility]5 [place] [address] Assigned Rheumatology Provider 07/02/24 documented as of this encounter
--- OUTSIDE RECORDS SUMMARY | 2024-08-28 19:04 | XMS_ITS | Encounter Summary ---
Author Organization [facility] Address [address] [place] [address] Care Team Providers Care Tunnel Miner Name Role Phone Lita Oseguera Unavailable Unavailable Marija Edgar APRN GARDENING SUPERVISOR Primary Care Provider + Chanelle Mccann APRN CNM Unavailab le Kyara De La Fuente RN Unavailable [phone] Marija Edgar APRN GARDENING SUPERVISOR Unavailable Mynor Broussard MD Unavailable [phone] Keisha Dotson MD Unavailable Mary Mejia Unavailable Unavailable Stacey rBiones RN CHEMICAL DEPENDENCY Unavailable Lesley Guillermo CHW Unavailable Mary Mejia Unavailable Unavailable Lita Oseguera Unavailable Unavailable Galo Burrell MD Unavailable Unavailable Cristina Wood Unavailable Lesley Guillermo CHW Unavailable Meredith Bedoya Unavailable Unavailable Cristina Wood Unavailable Diana Desir [facility] Unavailable Ruhland, Rain Lena PA-C Unavailable Summer Lara MD Unavailable [phone] Summer Lara MD Unavailable [phone] Summer Lara MD Unavailable [phone] Tavia Wyatt MD Unavailable [phone] Johnny Murillo MD Unavailable +1- Erica Farrell INGREDIENT SCALER GARDENING SUPERVISOR Unavailable VikasTeresita H Unavailable Tavia Wyatt MD Unavailable [phone] Diana Desir [facility] Unavailable [phone] Rich Barrett MD Unavailable Neil Kent MD Unavailable Roney Story [facility] Unavailable Erica Farrell APRN GARDENING SUPERVISOR Unavailable Diana Desir [facility] Unavailable [phone] Jelena David OD Unavailable Galo Burrell MD Unavailable Unavailable Livan Sharif MD Unavailable Livan Sharif MD Unavailable + Catherine Cm MD Unavailable + Valery Veronica PA-C Unavailable [phone] Catherine Cm MD Unavailable + Johnny Murillo MD Unavailable +1- Brea Quinn INGREDIENT SCALER GARDENING SUPERVISOR Unavailable [phone] Brea Quinn INGREDIENT SCALER GARDENING SUPERVISOR Unavailable [phone] Jose Francisco Johnson MD Unavailable Livan Sharif MD Unavailable Catherine Cm MD Unavailable + Sydnie Martinez RN Unavailable Unavailable Alfonso Renteria MD Unavailable [phone] Esha Grimm PA-C Primary Care Provider Cheng Todd PA-C Unavailable [phone] ArmaniRadha APRN GARDENING SUPERVISOR Unavailable Jelena David OD Unavailable [phone] Pao Joseph RN Unavailable Unavailable Esha Grimm PA-C Unavailable [phone] Valery Veronica PA-C Unavailable Rey Tay MD Unavailable Rocky Zepeda DO Unavailable Philip Dumont MD Unavailable Meredith Carrera PA-C Unavailable Neil Kent MD Unavailable Juan Pablo Emmanuel MD Unavailable [phone] Audrey Waite PA-C Unavailable [phone] JeremíasValery damon PA-C Unavailable Herminia Hatch MD Unavailable Encounter Details Date Type Department Care Team (Late st Contact Info) Description 08/07/2020 MyC Medical Advice [facility] Care Coordination [facility] [address] [place] [address] Lesley Guillermo, [facility] Social History Tobacco Use Types Packs/Day Years [...] do you attend [facility] or adventist services? More than 4 times [...] Answer Date Recorded PHQ-2 Score 3 06/24/2020 [facility] [place] [facility]at [facility] - Occupational Stress [...] PM CDT Legal Sex Female 4:13 AM LIEUTENANT FIREFIGHTER Gender Identity Female 03/02/2021 5:45 PM CDT Sexual Orientation Straight 02/28/2020 12 :51 AM CDT COVID-19 Exposure Response Date Recorded In the last month, have you been in contact with someone who was confirmed or suspected to have Coronavirus / COVID-19? No / Unsure 08/06/2020 2:03 PM LIEUTENANT FIREFIGHTER documented as of this encounter Plan of Treatment Upcoming Encounters Date Type Department Care Team (Late st Contact Info) Description 10/23/2024 9:30 AM CDT Office Visit [facility] Neurology [facility] [address] [facility], [address] [place] [address] [place] [address] [place], [place] [phone] Johnny Penn MD [address] [place], [place] [address] documented as of this encounter Visit Diagnoses Not on filedocumented in this encounter Additional Health Concerns Infection Onset Date Last Indicated Resolved Time Rule Out COVID-19 08/30/2020 08/30/2020 08/30/2020 5:05 PM LIEUTENANT FIREFIGHTER Rule Out COVID-19 09/24/2020 09/24/2020 09/24/2020 9:24 AM CDT Rule Out COVID-19 11/05/2020 11/05/2020 11/06/2020 1:09 PM CDT Rule Out COVID-19 05/11/2021 05/11/2021 05/13/2021 10:18 AM CDT Rule Out COVID-19 07/13/2021 07/13/2021 07/14/2021 3:04 PM LIEUTENANT FIREFIGHTER Rule Out COVID-19 07/18/2021 07/18/2021 07/20/2021 1:56 PM LIEUTENANT FIREFIGHTER COVID-19 07/18/2021 07/18/2021 08/08/2021 11:3 9 PM LIEUTENANT FIREFIGHTER Rule Out COVID-19 12/18/2021 12/18/2021 12/19/2021 11:34 AM CDT Rule Out COVID-19 02/24/2022 02/24/2022 02/25/2022 1:08 PM CDT Rule Out COVID-19 04/26/2022 04/26/2022 04/26/2022 6:47 AM CDT Rule Out COVID-19 05/17/2022 05/17/2022 05/17/2022 10:20 PM LIEUTENANT FIREFIGHTER Rule Out COVID-19 06/09/2022 06/09/2022 06/09/2022 9:35 AM LIEUTENANT FIREFIGHTER COVID-19 06/09/2022 06/09/2022 06/30/2022 11:4 1 PM LIEUTENANT FIREFIGHTER Rule Out COVID-19 11/10/2022 11/10/2022 11/11/2022 12:17 PM CDT Rule Out COVID-19 03/07/2023 03/07/2023 03/07/2023 1:20 PM CDT Rule Out COVID-19 12/26/2023 12/26/2023 12/26/2023 9:50 AM CDT Rule Out COVID-19 04/09/2024 04/09/2024 04/10/2024 6:48 PM CDT Assessment Noted Time PHQ-9 Depression Total Score: 9 06/25/20 20 7:04 AM LIEUTENANT FIREFIGHTER documented as of this encounter Care Teams Tunnel Miner Relationship Specialty Start Date End Date Marija Edgar APRN GARDENING SUPERVISOR PCP - General Nurse Practitioner 04/30/20 04/14/23 Esha Grimm PA-C [address] [place] [phone] PCP - General Family Medicine 05/04/23 Lita Oseguera Personal Advocate & Liaison (PAL) 02/28/20 03/27/23 Chanelle Mccann APRN CNM [address] [id number] Assigned OBGYN Provider 05/02/2005/09 Kyara De La Fuente, RN Specialty Signal Processing Engineer Neurology 06/04/20 03/05/21 Marija Edgar APRN GARDENING SUPERVISOR Assigned PCP 06/08/20 04/29/23 Mynor Broussard MD [address] [address] Assigned Surgical Provider 06/01/20 11/28/21 Keisha Dotson MD [address] [place], [place] [address] Assigned Neuroscience Provider 06/04/20 04/01/23 Mary Mejia Financial Resource Worker 08/07/20 08/21/20 Stacey Briones, [facility] Lead Signal Processing Engineer Primary Care - CC 08/11/2012/30 Lesley Guillermo, [facility] Community Health Worker 08/11/2010/01 Mary Mejia Financial Resource Worker 09/02/20 10/06/20 Lita Oseguera Personal Advocate & Liaison (PAL) Family Medicine 09/10/20 09/21/20 Galo Burrell MD Assigned Heart and Vascular Provider 10/05/20 04/02/22 Cristina Wood Financial Resource Worker 10/07/20 10/14/20 Lesley Guillermo, [facility] Community Health Worker 10/23/2012/30 Meredith Bedoya Financial Resource Worker 10/23/20 11/23/20 Cristina Wood Financial Resource Worker 02/09/21 02/09/21 Diana Desir, [facility] [address] [place] [address] Pharmacist Pharmacist 04/17/21 Rain Galaviz PA-C [address] [place] [address] [place] [address] Physician Safety Technician Dermatology 04/28/21 Summer Lara MD [address] [place] [address] 173334 Assigned OBGYN Provider 05/10/2105/23 Summer Lara MD [address] [place] [address] 303734 Assigned OBGYN Provider 05/31/21 Summer Lara MD [address] [place] [address] 253954 Assigned OBGYN Provider 05/24/2105/30 Tavia Wyatt MD [address] [place] [address] [phone] Dermatology 07/14/21 Johnny Murillo MD [address] [place], [place] [address]144 Assigned Musculoskeletal Provider 08/30/21 03/17/22 Erica Farrell APRN GARDENING SUPERVISOR [address] [facility] [address] [place] [phone] Nurse Practitioner Cardiovascular Disease 09/09/21 Teresita Bean, [facility] [address] [phone] Pharmacist Pharmacist 09/24/21 09/29/21 Tavia Wyatt MD [address] [place] [address] Assigned Surgical Provider 11/29/21 05/07/22 Diana Desir, [facility] [address] [place] [address] Assigned MTM Pharmacist 01/02/22 Rich Barrett MD [address] 065825 Physician Ophthalmology 01/21/22 Neil Kent MD [address] [place], [place] 728665 Dermatology 02/24/22 Roney Story DPM [address] [facility] [address] [place], [place] 763537 Assigned Musculoskeletal Provider 03/20/22 08/13/22 Erica Farrell APRN GARDENING SUPERVISOR [address] [place] [address] Assigned Heart and Vascular Provider 04/03/22 04/16/22 Diana Desir, [facility] [address] [place] [address] Assigned MTM Pharmacist 04/07/22 Jelena David OD [address] [facility] [place] [address] Assigned Surgical Provider 05/08/22 10/08/22 Galo Burrell MD Assigned Heart and Vascular Provider 04/17/22 06/11/22 Livan Sharif MD [address] [place] [address] Cardiovascular Disease 05/14/22 Livan Sharif MD [address], [address] [place], [place] 7[address] Assigned Heart and Vascular Provider 06/12/22 07/23/22 Catherine Cm MD [address] [place] [address] Cardiovascular Disease 07/21/22 Valery Veronica, PAUcheC [address] [place] [address] 018275 Physician Safety Technician Dermatology 07/21/22 Catherine Cm MD [address] [place] [address] Assigned Heart and Vascular Provider 07/24/22 11/05/22 Johnny Murillo MD [facility] 267944 Assigned Musculoskeletal Provider 08/14/22 10/08/22 Brea Quinn APRN GARDENING SUPERVISOR [address] [place] [address] [phone] Nurse Practitioner Dermatology 09/21/22 Brea Quinn APRN GARDENING SUPERVISOR [address] [place] [address] Assigned Surgical Provider 10/09/22 05/01/24 [place] [address] [place] [address] Assigned Musculoskeletal Provider 10/09/22 05/01/24 Livan Sharif MD [address] [facility] [address] [place] [address] Assigned Heart and Vascular Provider 11/06/22 11/12/22 Catherine Cm MD [address] [place] [address] Assigned Heart and Vascular Provider 11/13/22 05/27/23 JuanSydnie malik, RN Personal Advocate & Liaison (PAL) Family Medicine 03/28/23 07/31/23 Alfonso Renteria MD [address] [facility] [address] [place] [address] Assigned Neuroscience Provider 04/02/23 Cheng Todd PA-C [address] [place] [address] Assigned PCP 04/30/23 07/15/23 Radha Lomeli APRN GARDENING SUPERVISOR [address] [place] [address] Assigned Heart and Vascular Provider 05/28/23 Jelena David OD [address] [facility] [place] [address] Ophthalmology 06/15/23 Pao Joseph, RN Personal Advocate & Liaison (PAL) Nurse 08/01/23 11/07/23 Esha Grimm PA-C [address] [place] [phone] Assigned PCP 07/16/23 Valery Veronica PA-C [address] [place] [address] 802225 Physician Safety Technician Dermatology 09/19/23 Rey Tay MD [address] [place] [address] 227675 MD Gastroenterology 09/20/23 Rocky Zepeda DO [address] [place] [address] 317625 Physician Gastroenterology 09/20/23 Philip Dumont MD [address] [place] [address] 106695 Physician Ophthalmology 09/22/23 Meredith Carrera PA-C [address] [place] [address] 280135 Assigned Gastroenterology Provider 11/01/23 Neil Kent MD [address] [address] Dermatology 11/02/23 [place] [address] [place] [address] Neurological Surgery 12/26/23 Audrey Waite PA-C 500 [place] [address] Physician Safety Technician Dermatology 02/28/24 Valery Veronica PA-C [address] [place] [address] Physician Safety Technician Dermatology 04/10/24 Herminai Hatch MD [address] [place] [address] [phone] Assigned Rheumatology Provider 07/02/24 documented as of this encounter
--- OUTSIDE RECORDS SUMMARY | 2024-08-28 19:04 | XMS_ITS | Encounter Summary ---
Author Organization [facility] Address [address] [place] [address] Care Team Providers Care Distribution Engineer Name Role Phone Lita Oseguera Unavailable Unavailable Marija Edgar APRN MIRROR INSTALLER Primary Care Provider + Marija Edgar APRN MIRROR INSTALLER Unavailable [phone] Keisha Dotson MD Unavailable Galo Burrell MD Unavailable Unavailable Diana Desir [facility] Unavailable Rain Galaviz PA-C Unavailable Summer Lara MD Unavailable [phone] Tavia Wyatt MD Unavailable Johnny Murillo MD Unavailable Erica Farrell APRN MIRROR INSTALLER Unavailable Tavia Wyatt MD Unavailable Diana Desir [facility] Unavailable Rich Barrett MD Unavailable Neil Kent MD Unavailable Roney Story DPM Unavailable [phone] Erica Farrell APRN MIRROR INSTALLER Unavailable + Diana Desir [facility] Unavailable Jelena David OD Unavailable Galo Burrell MD Unavailable Unavailable HoLivan MD Unavailable Livan Sharif MD Unavailable IskoCatherine boothe MD Unavailable + Valery Veronica PA-C Unavailable [phone] Catherine Cm MD Unavailable + Johnny Murillo MD Unavailable [phone] Brea Quinn MODELING MANAGER MIRROR INSTALLER Unavailable [phone] Brea Quinn MODELING MANAGER MIRROR INSTALLER Unavailable [phone] Jose Francisco Johnson MD Unavailable Livan Sharif MD Unavailable + IsCatherine boothe MD Unavailable + Sydnie Martinez RN Unavailable Unavailable Alfonso Renteria MD Unavailable Esha Grimm PA-C Primary Care Provider Cheng Todd PA-C Unavailable Radha Lomeli MODELING MANAGER MIRROR INSTALLER Unavailable [phone] Jelena David OD Unavailable Pao Joseph RN Unavailable Unavailable Esha Grimm PA-C Unavailable [phone] Valery Veronica PA-C Unavailable [phone] Rey Tay MD Unavailable Rocky Zepeda DO Unavailable Philip Dumont MD Unavailable [phone] Meredith Carrera PA-C Unavailable Neil Kent MD Unavailable Juan Pablo Emmanuel MD Unavailable Audrey Waite PA-C Unavailable [phone] Valery Veronica PA-C Unavailable [phone] Hemrinia Hatch MD Unavailable Encounter Details Date Type Department Care Team (Late st Contact Info) Description 12/03/2021 MyC Medical Advice M [facility]icians [facility] Epilepsy Care [address] [place], [address] [place] [address] Keisha Dotson MD [address] [place] [address] Social History Tobacco Use Types [...] How often do you attend rastafarian or amish serv ices? Never 09/22/2021 Do [...] 2 09/22/2021 [facility] - Occupational Stress Questionnaire Answer Date [...] in a penitentiary (including now)? No 09/22/2021 [place] Depression Scale Answer Date Recorded [place] Depression Score 5 01/14/2021 Last EPDS Self Harm Result Not on file 01/14 Education Answer Date Recorded What is the highest level of school you have completed or the highest degree you have received? 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 GAS PUMPER Gender Identity Female 03/02/2021 5:45 PM CDT [...] CDT Office Visit [facility] [address], [address] [place] [address] [place] [address] [place] [address] Johnny Penn MD [address] [place] [address] documented as of this encounter Visit Diagnoses Not on filedocumented in this encounter Additional Health Concerns Infection Onset Date Last Indicated Resolved Time Rule Out COVID-19 12/18/2021 12/18/2021 12/19/2021 11:34 AM CDT Rule Out COVID-19 02/24/2022 02/24/2022 02/25/2022 1:08 PM CDT Rule Out COVID-19 04/26/2022 04/26/2022 04/26/2022 6:47 AM CDT Rule Out COVID-19 05/17/2022 05/17/2022 05/17/2022 10:20 PM GAS PUMPER Rule Out COVID-19 06/09/2022 06/09/2022 06/09/2022 9:35 AM GAS PUMPER COVID-19 06/09/2022 06/09/2022 06/30/2022 11:4 1 PM GAS PUMPER Rule Out COVID-19 11/10/2022 11/10/2022 11/11/2022 12:17 PM CDT Rule Out COVID-19 03/07/2023 03/07/2023 03/07/2023 1:20 PM CDT Rule Out COVID-19 12/26/2023 12/26/2023 12/26/2023 9:50 AM CDT Rule Out COVID-19 04/09/2024 04/09/2024 04/10/2024 6:48 PM CDT Assessment Noted Time PHQ-9 Depression Total Score: 2 04/02/20 10:19 AM CDT documented as of this encounter Care Teams Distribution Engineer Relationship Specialty Start Date End Date Marija Edgar APRN MIRROR INSTALLER PCP - General Nurse Practitioner 04/30/20 04/14/23 Esha Grimm PA-C [address] [place] [phone] PCP - General Family Medicine 05/04/23 Lita Oseguera Personal Advocate & Liaison (PAL) 02/28/20 03/27/23 Marija Edgar APRN MIRROR INSTALLER Assigned PCP 06/08/20 04/29/23 Keisha Dotson MD 9[address] [place] [address] Assigned Neuroscience Provider 06/04/20 04/01/23 Galo Burrell MD Assigned Heart and Vascular Provider 10/05/20 04/02/22 [facility] [address] [place] [address] Pharmacist Pharmacist 04/17/21 Rain Galaviz PA-C [address] [facility] [place] [address] Physician Automatic Clipper And Stripper Dermatology 04/28/21 Summer Lara MD [address] [place] [address] 729044 Assigned OBGYN Provider 05/31/21 2 Tavia Wyatt MD [address] [place] [address] 745904 Dermatology 07/14/21 Johnny Murillo MD [address] [place] [address] Assigned Musculoskeletal Provider 08/30/21 03/17/22 Erica Farrell APRN MIRROR INSTALLER 6[address] [facility] [address] [place], [place] [address] Nurse Practitioner Cardiovascular Disease 09/09/21 Tavia Wyatt MD [address] [place] [address] Assigned Surgical Provider 11/29/21 05/07/22 Diana Desir, [facility] [address] [place] [address] Assigned MTM Pharmacist 01/02/22 Rich Barrett MD [address] 409[address] Physician Ophthalmology 01/21/22 Neil Kent MD 500 [place], [place] 783905 Dermatology 02/24/22 Roney Story DPM [address] [facility] [address] [place], [place] [address] Assigned Musculoskeletal Provider 03/20/22 08/13/22 Erica Farrell APRN MIRROR INSTALLER 1700 [place] [address] Assigned Heart and Vascular Provider 04/03/22 04/16/22 Diana Desir, [facility] [address] [place] [address] Assigned MTM Pharmacist 04/07/22 Jelena David OD [address] [facility] [place] [address] Assigned Surgical Provider 05/08/22 10/08/22 Galo Burrell MD Assigned Heart and Vascular Provider 04/17/22 06/11/22 Livan Sharif MD [address], [facility] [address] [place] [address] Cardiovascular Disease 05/14/22 Livan Sharif MD [address], [facility] [address] [place] [address] Assigned Heart and Vascular Provider 06/12/22 07/23/22 Catherine Cm MD [address] [facility] [place] [address] Cardiovascular Disease 07/21/22 Valery Veronica, PAUcheC [address] [place] [address] 700625 Physician Automatic Clipper And Stripper Dermatology 07/21/22 Catherine Cm MD [address] [facility] [address] [place] [address] Assigned Heart and Vascular Provider 07/24/22 11/05/22 Johnny Murillo MD [address] [place] [address] 200924 Assigned Musculoskeletal Provider 08/14/22 10/08/22 Brea Quinn APRN MIRROR INSTALLER [address] [place] [address] 796475 Nurse Practitioner Dermatology 09/21/22 Brea Quinn APRN MIRROR INSTALLER [address] [facility] [place] [address] Assigned Surgical Provider 10/09/22 05/01/24 [place] [address] [place] [address] Assigned Musculoskeletal Provider 10/09/22 05/01/24 Livan Sharif MD [address], [facility] [address] [place] [address] Assigned Heart and Vascular Provider 11/06/22 11/12/22 Catherine Cm MD [address] [place] 674395 Assigned Heart and Vascular Provider 11/13/22 05/27/23 Sydnie Martinez RN Personal Advocate & Liaison (PAL) Family Medicine 03/28/23 07/31/23 Alfonso Renteria MD 5775 [facility] 200 [place] [address] Assigned Neuroscience Provider 04/02/23 Cheng Todd PA-C [address] [place] [address] Assigned PCP 04/30/23 07/15/23 Radha Lomeli APRN MIRROR INSTALLER [address] [place] [address] Assigned Heart and Vascular Provider 05/28/23 Jelena David OD [address] [facility] [place] [id number] MD Ophthalmology 06/15/23 Pao Joseph, RN Personal Advocate & Liaison (PAL) Nurse 08/01/23 11/07/23 Esha Grimm PA-C [address] [place] [phone] Assigned PCP 07/16/23 Valery Veronica PA-C [address] [place] [address] 749835 Physician Automatic Clipper And Stripper Dermatology 09/19/23 Rey Tay MD [address] [place] [address] [phone] MD Gastroenterology 09/20/23 Rocky Zepeda DO [address] [place] [address] 926045 Physician Gastroenterology 09/20/23 Philip Dumont MD [address] [place] [address] 818355 Physician Ophthalmology 09/22/23 Meredith Carrera PA-C [address] [place] [address] 198485 Assigned Gastroenterology Provider 11/01/23 Neil Kent MD [address] [place] [address] 607190 Dermatology 11/02/23 [place] [address] [place] [id number] Neurological Surgery 12/26/23 Audrey Waite PA-C 500 [place] [address] Physician Automatic Clipper And Stripper Dermatology 02/28/24 Valery Veronica PA-C [address] [place] [address] Physician Automatic Clipper And Stripper Dermatology 04/10/24 Herminia Hatch MD [address] [place] [address] [phone] Assigned Rheumatology Provider 07/02/24 documented as of this encounter
--- OUTSIDE RECORDS SUMMARY | 2024-08-28 19:05 | XMS_ITS | Encounter Summary ---
Author Organization [place] Address [address] [place] [address] Care Team Providers Care Side Panel Hanger Name Role Phone Diana Desir [facility] Unavailable Rain Galaviz PA-C Unavailable [phone] Tavia Wyatt MD Unavailable Erica Farrell APRN SHOPPING CENTRE MANAGER Unavailable Rich Barrett MD Unavailable [phone] Neil Kent MD Unavailable Diana Desir [facility] Unavailable Livan Sharif MD Unavailable Catherine Cm MD Unavailable + Valery Veronica PA-C Unavailable Brea Quinn BOILER/CHILLER OPERATOR SHOPPING CENTRE MANAGER Unavailable [phone] Brea Quinn BOILER/CHILLER OPERATOR SHOPPING CENTRE MANAGER Unavailable Jose Francisco Johnson MD Unavailable Alfonso Renteria MD Unavailable [phone] Esha Grimm PA-C Primary Care Provider [phone] Radha Lomeli APRN SHOPPING CENTRE MANAGER Unavailable Jelena David OD Unavailable Esha Grimm PA-C Unavailable [phone] Valery Veronica PA-C Unavailable [phone] Rey Tay MD Unavailable Rocky Zepeda DO [...] Event Monitor Adult Pediatric Radha Lomeli APRN SHOPPING CENTRE MANAGER [address] [place] [address] Phone: tel: fax: [facility] [address] [place] [address] Phone: tel: fax: Referral ID Status Reason Start Date Expiration Date Visits Re quested Visits Authorized [id number] Closed 03/07/2024 03/07/2025 1 1 Encounter Details Date Type Department Care Team (Late st Contact Info) Description 03/07/2024 Telephone [facility] Heart [facility] [address] [place] [address] Carley Myles, RN Social History [...] you attend [facility] or [employer]ology services? 1 to 4 times [...] Answer Date Recorded PHQ-2 Score 1 02/07/2024 [facility] Occupat ional Health [...] CDT Legal Sex Female 4:13 AM SENIOR SHAREPOINT DEVELOPER Gender Identity Female 03/02/2021 5:45 PM CDT Sexual Orientation Straight 02/28/2020 12 :51 AM CDT documented as of this encounter Miscellaneous Notes * Telephone Encounter - Carley Myles RN - 03/07/2024 1:21 PM CDT Called patient to discuss. Pt states she will mail back the Zio patch and get event monitor placed. Pt requested a short order cook to call her instead of her reaching out. Will route to scheduling team. Orders in EPIC. Carley ZABALA [facility] * Telephone Encounter [...] Radha Lomeli CNP for review. Carley ZABALA [facility] documented in this encounter Plan of Treatment Upcoming Encounters Date Type Department Care Team (Late st Contact Info) Description 10/23/2024 9:30 AM CDT Office Visit [facility] Neurology Clinics - [address], [address] [place] [address] [place] [address] [place] [address]67 Johnny Penn MD [address] [place] [id number] documented as of this encounter Results * CARDIAC EVENT MONITOR APPLICATION AND PROVIDER INTERPRETATION (03/08/2024 11:18 AM CDT) Anatomical Region Laterality Modality Other Radha Lomeli ARLENE SHOPPING CENTRE MANAGER CV CARDIAC SERVICES ORDERA BLES Final Result [...] documented as of this encounter Care Teams Side Panel Hanger Relationship Specialty Start Date End Date Esha Grimm PA-C [address] [place] [address] PCP - General Family Medicine 05/04/23 Diana Deisr, [facility] [address] [place], [place] 965986 Pharmacist Pharmacist 04/17/21 Rain Galaviz PA-C [address] [place] [address] [address] [place] [address] Physician Chief Radiation Therapist Dermatology 04/28/21 Tavia Wyatt MD [address] [place] [address] [address] [place] [address] Dermatology 07/14/21 Erica Farrell APRN SHOPPING CENTRE MANAGER [address] [facility] [address] [place] [address] Nurse Practitioner Cardiovascular Disease 09/09/21 Rich Barrett MD 516 [facility] [address] [place], [place] [address] Physician Ophthalmology 01/21/22 Neil Kent MD 500 [place] [address] Dermatology 02/24/22 [facility] 3033 [place] [address] Assigned [place] Pharmacist 04/07/22 Livan Sharif MD [address], [facility] [address] [place], [place] 3186[address] Cardiovascular Disease 05/14/22 Catherine Cm MD 6405 [facility] S [facility] [place], [place] 4427[address] Cardiovascular Disease 07/21/22 Valery Veronica, PA-C 909 [place] [address] Physician Chief Radiation Therapist Dermatology 07/21/22 Brea Quinn APRN SHOPPING CENTRE MANAGER 500 [place] [address] Nurse Practitioner Dermatology 09/21/22 Brea Quinn APRN SHOPPING CENTRE MANAGER 6401 [place] [address] Assigned Surgical Provider 10/09/22 05/01/24 [place] [address] [place] [address] Assigned Musculoskeletal Provider 10/09/22 05/01/24 Alfonso Renteria MD [address] [facility] 200 [place] [address] Assigned Neuroscience Provider 04/02/23 Radha Lomeli APRN SHOPPING CENTRE MANAGER 6[address] [facility] [address] [place], [place] 307[address] Assigned Heart and Vascular Provider 05/28/23 Jelena David OD [address] [facility] [place] [address] MD Ophthalmology 06/15/23 Esha Grimm PA-C [address] [place] [address] Assigned PCP 07/16/23 Valery Veronica PA-C [address] [place] [address] 485515 Physician Chief Radiation Therapist Dermatology 09/19/23 Rey Tay MD [address] [place] [address] 732705 Gastroenterology 09/20/23 Rocky Zepeda DO [address] [place] [address] 145625 Physician Gastroenterology 09/20/23 Philip Dumont MD [address] [place] [address] 532235 Physician Ophthalmology 09/22/23 Meredith Carrera PA-C 909 [place] [address] Assigned Gastroenterology Provider 11/01/23 Neil Kent MD [address] 782920 Dermatology 11/02/23 [place] [address] [phone] Neurological Surgery 12/26/23 Audrey Waite PA-C [address] [place] [address] 031255 Physician Chief Radiation Therapist Dermatology 02/28/24 Valery Veronica PA-C 893295 [place] [address] Physician Chief Radiation Therapist Dermatology 04/10/24 Herminia Hatch MD [facility]5 [place], [place] 16847125 Assigned Rheumatology Provider 07/02/24 documented as of this encounter
--- OUTSIDE RECORDS SUMMARY | 2024-08-28 19:05 | XMS_ITS | Encounter Summary ---
Author Organization [place] Address [address] [place] [address] Care Team Providers Care Service Station Manager Name Role Phone Marija Edgar APRN DRILLING SUPERVISOR Primary Care Provider + Marija Edgar APRN DRILLING SUPERVISOR Unavailable [phone] Keisha Dotson MD Unavailable [phone] Diana Desir [facility] Unavailable Rain Galaviz PA-C Unavailable Tavia Wyatt MD Unavailable [phone] Erica Farrell APRN DRILLING SUPERVISOR Unavailable Rich Barrett MD Unavailable Neil Kent MD Unavailable Diana Desir [facility] Unavailable Livan Sharif MD Unavailable Catherine Cm MD Unavailable + Valery Veronica PA-C Unavailable Brea Quinn APRN DRILLING SUPERVISOR Unavailable Brea Quinn APRN DRILLING SUPERVISOR Unavailable Jose Francisco Johnson MD Unavailable Catherine Cm MD Unavailable + Sydnie Martinez RN Unavailable Unavailable Alfonso Renteria MD Unavailable [phone] Esha Grimm PA-C Primary Care Provider Cheng Todd PA-C Unavailable Armani Radha Stovall APRN DRILLING SUPERVISOR Unavailable Frankie Jelena Garcia OD Unavailable Pao Joseph RN Unavailable Unavailable Esha Grimm PA-C Unavailable [phone] Valery Veronica PA-C Unavailable Rey Tay MD Unavailable Rocky Zepeda DO Unavailable Philip Dumont MD Unavailable Meredith Carrera PA-C Unavailable Neil Kent MD Unavailable Juan Pablo Emmanuel MD Unavailable Audrey Waite PA-C Unavailable [phone] JeremíasValery damon PA-C Unavailable Herminia Hatch MD Unavailable Encounter Details Date Type Department Care Team (Late st Contact Info) Description 03/29/2023 MyC Medical Advice [address] [address] Diana Desir, [facility] [address] [place], [place] 120196 Social History Tobacco Use Types Packs/Day Years [...] Answer Date Recorded PHQ-2 Score 0 03/10/2023 [facility] Occupat ional [...] slept in a penitentiary (including now)? No 03/10/2023 [place] Depression Scale Answer Date Recorded [place] Depression Score 5 01/14/2021 Last EPDS Self Harm Result Not on file 01/14 Education Answer Date Recorded What is the highest level of school you have completed or the highest degree you have received? 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 Gender Identity Female 03/02/2021 5:45 PM [...] Office Visit [facility] Neurology [facility] [address] [facility], [address] [place] [address] [place] [address] [place] [address] Johnny Penn MD [address] [facility] [place] [address] documented as of this encounter Visit Diagnoses Not on filedocumented in this encounter Additional Health Concerns Infection Onset Date Last Indicated Resolved Time Rule Out COVID-19 12/26/2023 12/26/2023 12/26/2023 9:50 AM CDT Rule Out COVID-19 04/09/2024 04/09/2024 04/10/2024 6:48 PM CDT Assessment Noted Time PHQ-9 Depression Total Score: 5 03/10/20 23 6:49 AM CDT documented as of this encounter Care Teams Service Station Manager Relationship Specialty Start Date End Date Marija Edgar APRN DRILLING SUPERVISOR PCP - General Nurse Practitioner 04/30/20 04/14/23 Esha Grimm PA-C [address] [place] [address] PCP - General Family Medicine 05/04/23 Marija Edgar APRN DRILLING SUPERVISOR Assigned PCP 06/08/20 04/29/23 Keisha Dotson MD 9 [place], [place] 577825 Assigned Neuroscience Provider 06/04/20 04/01/23 Diana Desir, [facility] [address] [place] [address] Pharmacist Pharmacist 04/17/21 Rain Galaviz PA-C [address] [place] [address] [address] [place] [address] Physician Senior Developer Dermatology 04/28/21 Tavia Wyatt MD [address] [place] [address] [address] [place] [address] Dermatology 07/14/21 Erica Farrell APRN DRILLING SUPERVISOR [address] [place] [address] Nurse Practitioner Cardiovascular Disease 09/09/21 Rich Barrett MD [address] [place] [address] 151765 Physician Ophthalmology 01/21/22 Neil Kent MD [address] [place] [address] 971925 Dermatology 02/24/22 Diana Desir, [facility] [address] [place] [address] Assigned MTM Pharmacist 04/07/22 Livan Sharif MD [address] [place] [address] Cardiovascular Disease 05/14/22 Catherine mC MD [address] [place] [address] Cardiovascular Disease 07/21/22 Valery Veronica, PA-C [address] [place] [address] 570525 Physician Senior Developer Dermatology 07/21/22 Brea Quinn APRN DRILLING SUPERVISOR [address] [place] [address] Nurse Practitioner Dermatology 09/21/22 Brea Quinn APRN DRILLING SUPERVISOR [address] [place] [address] Assigned Surgical Provider 10/09/22 05/01/24 [place] [address] [place] [address] Assigned Musculoskeletal Provider 10/09/22 05/01/24 Catherine Cm MD [address] [facility] [address] [place] [address] Assigned Heart and Vascular Provider 11/13/22 05/27/23 Sydnie Martinez RN Personal Advocate & Liaison (PAL) Family Medicine 03/28/23 07/31/23 Alfonso Renteria MD 5775 [facility] [address] 200 [place] [address] Assigned Neuroscience Provider 04/02/23 Cheng Todd PA-C [address] [place] [address] Assigned PCP 04/30/23 07/15/23 Radha Lomeli APRN DRILLING SUPERVISOR [address] [facility] [address] [place] [address] Assigned Heart and Vascular Provider 05/28/23 Jelena David OD [address] [place] [address] Ophthalmology 06/15/23 Pao Joseph, VJ Personal Advocate & Liaison (PAL) Nurse 08/01/23 11/07/23 Esha Grimm PA-C [address] [place] [address] Assigned PCP 07/16/23 Valery Veronica PA-C [address] [place] [address] Physician Senior Developer Dermatology 09/19/23 Rey Tay MD [address] [place] [address] 824205 Gastroenterology 09/20/23 Rocky Zepeda DO [address] [place] [address] 158335 Physician Gastroenterology 09/20/23 Philip Dumont MD 516 [place] [address] Physician Ophthalmology 09/22/23 Meredith Carrera PA-C [address] [place] [address] Assigned Gastroenterology Provider 11/01/23 Neil Kent MD [address] 915240 MD Dermatology 11/02/23 [place] [address] 088937 Neurological Surgery 12/26/23 Audrey Waite PA-C [address] [place] [address] 883505 Physician Senior Developer Dermatology 02/28/24 Valery Veronica PA-C 368168 99 [place] [address] Physician Senior Developer Dermatology 04/10/24 Herminia Hatch MD 1875 [place] [address] Assigned Rheumatology Provider 07/02/24 documented as of this encounter
--- OUTSIDE RECORDS SUMMARY | 2024-08-28 19:05 | XMS_ITS | Encounter Summary ---
Author Organization [place] Address [address] [place] [address] Care Team Providers Care Mems Device Scientist Name Role Phone Lita Oseguera Unavailable Unavailable Marija Edgar APRN VULNERABILITY RESEARCHER Primary Care Provider + Marija Edgar APRN VULNERABILITY RESEARCHER Unavailable [phone] Mynor Broussard MD Unavailable [phone] Keisha Dotson MD Unavailable Galo Burrell MD Unavailable Unavailable Diana Desir [facility] Unavailable Rain Galaviz PA-C Unavailable Summer Lara MD Unavailable [phone] Tavia Wyatt MD Unavailable Johnny Murillo MD Unavailable [phone] Erica Farrell APRN VULNERABILITY RESEARCHER Unavailable Tavia Wyatt MD Unavailable Diana Desir [facility] Unavailable Rich Barrett MD Unavailable [phone] Neil Kent MD Unavailable Roney Story DPM Unavailable Erica Farrell BUSINESS SERVICES TECH VULNERABILITY RESEARCHER Unavailable Diana Desir [facility] Unavailable Jelena David OD Unavailable [phone] Galo Burrell MD Unavailable Unavailable Livan Sharif MD Unavailable Livan Sharif MD Unavailable Catherine Cm MD Unavailable + Valery Veronica PA-C Unavailable [phone] Catherine Cm MD Unavailable + Johnny Murillo MD Unavailable [phone] Brea Quinn BUSINESS SERVICES TECH VULNERABILITY RESEARCHER Unavailable [phone] Brea Quinn BUSINESS SERVICES TECH VULNERABILITY RESEARCHER Unavailable [phone] Jose Francisco Johnson MD Unavailable Livan Sharif MD Unavailable + IsCatherine hobbs MD Unavailable + Sydnie Martinez RN Unavailable Unavailable Alfonso Renteria MD Unavailable Esha Grimm PA-C Primary Care Provider Cheng Todd PA-C Unavailable Radha Lomeli BUSINESS SERVICES TECH VULNERABILITY RESEARCHER Unavailable [phone] Jelena David OD Unavailable [phone] Pao Joseph RN Unavailable Unavailable Esha Grimm PA-C Unavailable [phone] Valery Veronica PA-C Unavailable [phone] Rey Tay MD Unavailable Rocky Zepeda DO Unavailable Philip Dumont MD Unavailable Byron Carreranahed DOWC Unavailable [phone] Neil Kent MD Unavailable Juan Pablo Emmanuel MD Unavailable [phone] Audrey Waite PA-C Unavailable [phone] Valery Veronica PA-C Unavailable [phone] Herminia Hatch MD Unavailable Encounter Details Date Type Department Care Team (Late st Contact Info) Description 10/28/2021 MyC Medical Advice [facility] Heart [address] [place] [address] Erica Farrell APRN [facility] 17[address] [place], [place] [phone] Social History Tobacco Use Types Packs/Day Years [...] Answer Date Recorded PHQ-2 Score 2 09/22/2021 [facility] of Occupat ional Health - [...] in a jail (including now)? No 09/22/2021 [place] Depression Scale Answer Date Recorded [place] Depression Score 5 01/14/2021 Last EPDS Self Harm Result Not on file 01/14 Education Answer Date Recorded What is the highest level of school you have completed or the highest degree you have received? 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 FRESH FOOD MANAGER Gender Identity Female 03/02/2021 5:45 PM [...] Office Visit [facility] Neurology Clinics [address], [address] [place] [address] [place] [address] [place] [address] Johnny Penn MD [address] [place] [address] documented as of this encounter Visit Diagnoses Not on filedocumented in this encounter Additional Health Concerns Infection Onset Date Last Indicated Resolved Time Rule Out COVID-19 12/18/2021 12/18/2021 12/19/2021 11:34 AM CDT Rule Out COVID-19 02/24/2022 02/24/2022 02/25/2022 1:08 PM CDT Rule Out COVID-19 04/26/2022 04/26/2022 04/26/2022 6:47 AM CDT Rule Out COVID-19 05/17/2022 05/17/2022 05/17/2022 10:20 PM FRESH FOOD MANAGER Rule Out COVID-19 06/09/2022 06/09/2022 06/09/2022 9:35 AM FRESH FOOD MANAGER COVID-19 06/09/2022 06/09/2022 06/30/2022 11:4 1 PM FRESH FOOD MANAGER Rule Out COVID-19 11/10/2022 11/10/2022 11/11/2022 12:17 PM CDT Rule Out COVID-19 03/07/2023 03/07/2023 03/07/2023 1:20 PM CDT Rule Out COVID-19 12/26/2023 12/26/2023 12/26/2023 9:50 AM CDT Rule Out COVID-19 04/09/2024 04/09/2024 04/10/2024 6:48 PM CDT Assessment Noted Time PHQ-9 Depression Total Score: 2 04/02/20 21 10:19 AM CDT documented as of this encounter Care Teams Mems Device Scientist Relationship Specialty Start Date End Date Marija Edgar APRN VULNERABILITY RESEARCHER PCP - General Nurse Practitioner 04/30/20 04/14/23 Esha Grimm PA-C [address] [place] [address] PCP - General Family Medicine 05/04/23 Lita Oseguera Personal Advocate & Liaison (PAL) 02/28/20 03/27/23 Marija Edgar APRN VULNERABILITY RESEARCHER Assigned PCP 06/08/20 04/29/23 Mynor Broussard MD 6363 [facility] 500 [place] [address] Assigned Surgical Provider 06/01/20 11/28/21 Keisha Dotson MD 909 [place] [address] Assigned Neuroscience Provider 06/04/20 04/01/23 Galo Burrell MD Assigned Heart and Vascular Provider 10/05/20 04/02/22 Diana [facility] [address] [place] [address] Pharmacist Pharmacist 04/17/21 Rain Galaviz PA-C [address] [place] [address] [address] [place] [address] Physician Solar Project Engineer Dermatology 04/28/21 Summer Lara MD [address] [place] [address] 240094 Assigned OBGYN Provider 05/31/21 2 Tavia Wyatt MD [address] [place] [address] [id number] Dermatology 07/14/21 Johnny Murillo MD [facility][note 3][address] [place], [place] [address] Assigned Musculoskeletal Provider 08/30/21 03/17/22 Erica Farrell APRN VULNERABILITY RESEARCHER [address] [facility] [address] [place] [address] Nurse Practitioner Cardiovascular Disease 09/09/21 Tavia Wyatt MD [address] [place] [address] Assigned Surgical Provider 11/29/21 05/07/22 Daina Desir [facility] [address] [place] [address] Assigned MTM Pharmacist 01/02/22 Rich Barrett MD [address] 778465 Physician Ophthalmology 01/21/22 Neil Kent MD 500 [place], [place] 9[address]145 Dermatology 02/24/22 Roney Story DPM [address] [facility] 300 [place], [place] 548307 Assigned Musculoskeletal Provider 03/20/22 08/13/22 Erica Farrell APRN VULNERABILITY RESEARCHER 1700 [place] [address] Assigned Heart and Vascular Provider 04/03/22 04/16/22 Diana Desir [facility] [address] [place] [address] Assigned MTM Pharmacist 04/07/22 Jelena David OD [address]305 [facility] [place] [address] Assigned Surgical Provider 05/08/22 10/08/22 Galo Burrell MD Assigned Heart and Vascular Provider 04/17/22 06/11/22 Livan Sharif MD [address] [place], [place] 5784[address] Cardiovascular Disease 05/14/22 Livan Sharif MD [address], [address] [place] [address] Assigned Heart and Vascular Provider 06/12/22 07/23/22 Catherine Cm MD [address] [place], [place] 7735[address] Cardiovascular Disease 07/21/22 Valery Veronica, PAUcheC 909 [place], [place] 139[address] Physician Solar Project Engineer Dermatology 07/21/22 Catherine Cm MD [address] [place] 373915 Assigned Heart and Vascular Provider 07/24/22 11/05/22 Johnny Murillo MD [address] [facility] [address] [place] [address] 291604 Assigned Musculoskeletal Provider 08/14/22 10/08/22 Brea Quinn APRN VULNERABILITY RESEARCHER 500 [place] [address] Nurse Practitioner Dermatology 09/21/22 Brea Quinn APRN VULNERABILITY RESEARCHER 6401 [facility] [place] [address] Assigned Surgical Provider 10/09/22 05/01/24 [place] [address] [place] [facility] 300 [place], [place] 8[address]697 Assigned Musculoskeletal Provider 10/09/22 05/01/24 iLvan Sharif MD [address] [facility] [address] [place] [address] Assigned Heart and Vascular Provider 11/06/22 11/12/22 Catherine Cm MD [address] [facility] [address] [place] [address] Assigned Heart and Vascular Provider 11/13/22 05/27/23 Sydnie Martinez RN Personal Advocate & Liaison (PAL) Family Medicine 03/28/23 07/31/23 Alfonso Renteria MD 5775 [facility] 200 [place], [place] 922846 Assigned Neuroscience Provider 04/02/23 Cheng Todd PA-C [address] [place] [address] Assigned PCP 04/30/23 07/15/23 Radha Lomeli APRN VULNERABILITY RESEARCHER 6405 [facility] [address] [place] 494825 Assigned Heart and Vascular Provider 05/28/23 Jelena David OD [address] [facility] [place] [address] MD Ophthalmology 06/15/23 Pao Joseph, VJ Personal Advocate & Liaison (PAL) Nurse 08/01/23 11/07/23 Esha Grimm PA-C [address] [place] [phone] Assigned PCP 07/16/23 Valery Veronica PA-C [address] [place] [address] 004415 Physician Solar Project Engineer Dermatology 09/19/23 Rey Tay MD [address] [place] [address] 918175 Gastroenterology 09/20/23 Rocky Zepeda DO [address] [place] [address] 940345 Physician Gastroenterology 09/20/23 Philip Dumont MD [address] [place] [address] 001395 Physician Ophthalmology 09/22/23 Meredith Carrera PA-C [address] [place] [address] Assigned Gastroenterology Provider 11/01/23 Neil Kent MD [address] [place] [address] Dermatology 11/02/23 [place] [address] [place] [address] [place] [address] Neurological Surgery 12/26/23 Audrey Waite PAUcheC 500 [place] [address] Physician Solar Project Engineer Dermatology 02/28/24 Valery Veronica PAUcheC 965840 [address] [place] [address] Physician Solar Project Engineer Dermatology 04/10/24 Herminia Hatch MD [facility]5 [place] [address] Assigned Rheumatology Provider 07/02/24 documented as of this encounter
--- OUTSIDE RECORDS SUMMARY | 2024-08-28 19:05 | XMS_ITS | Encounter Summary ---
Author Organization [facility] Address [address] [place] [address] Care Team Providers Care Hospitalist Physician Name Role Phone Lita Oseguera Unavailable Unavailable Marija Edgar APRN CERTIFIED MASTER SAFECRACKER Primary Care Provider + Marija Edgar APRN CERTIFIED MASTER SAFECRACKER Unavailable Mynor Broussard MD Unavailable [phone] Keisha Dotson MD Unavailable Galo Burrell MD Unavailable Unavailable Diana Desir [facility] Unavailable Rain Galaviz PA-C Unavailable Summer Lara MD Unavailable [phone] Tavia Wyatt MD Unavailable Johnny Murillo MD Unavailable Erica Farrell APRN CERTIFIED MASTER SAFECRACKER Unavailable Teresita Bean [facility] Unavailable [phone] Tavia Wyatt MD Unavailable Diana Desir [facility] Unavailable Rich Barrett MD Unavailable [phone] Neil Kent MD Unavailable Roney Story DPM Unavailable Erica Farrell SUPERVISOR FRUIT GRADING CERTIFIED MASTER SAFECRACKER Unavailable Thang Diana Stanislav [facility] Unavailable Jelena David OD Unavailable [phone] Galo Burrell MD Unavailable Unavailable Livan Sharif MD Unavailable + Livan Sharif MD Unavailable + Catherine Cm MD Unavailable + Valery Veronica PA-C Unavailable [phone] Catherine Cm MD Unavailable + Johnny Murillo MD Unavailable [phone] Brea Quinn SUPERVISOR FRUIT GRADING CERTIFIED MASTER SAFECRACKER Unavailable [phone] Brea Quinn SUPERVISOR FRUIT GRADING CERTIFIED MASTER SAFECRACKER Unavailable [phone] Jose Francisco Johnson MD Unavailable Livan Sharif MD Unavailable + IsCatherine hobbs MD Unavailable + Sydnie Martinez RN Unavailable Unavailable Alfonso Renteria MD Unavailable Esha Grimm-C Primary Care Provider Cheng Todd PA-C Unavailable Radha Lomeli SUPERVISOR FRUIT GRADING CERTIFIED MASTER SAFECRACKER Unavailable [phone] Jelena David OD Unavailable [phone] Pao Joseph RN Unavailable Unavailable Esha Grimm-C Unavailable [phone] JeremíasValery damon PA-C Unavailable [phone] Rey Tay MD Unavailable Rocky Zepeda DO Unavailable Philip Dumont MD Unavailable [phone] Meredith CarreraC Unavailable [phone] Neil Kent MD Unavailable Juan Pablo Emmanuel MD Unavailable Audrey WaiteC Unavailable [phone] Valery Veronica PA-C Unavailable [phone] Herminia Hatch MD Unavailable Encounter Details Date Type Department Care Team (Late st Contact Info) Description 09/02/2021 [facility] [address] [address] [facility] [address] [place] [address] Social History Tobacco Use Types Packs/Day Years [...] Answer Date Recorded PHQ-2 Score 0 04/02/2021 [facility] [...] a group home (including now)? No 08/11/2020 [place] Depression Scale Answer Date Recorded [place] Depression Score 5 01/14/2021 Last EPDS Self Harm Result Not on file 01/14 Education Answer Date Recorded What is the highest level of school you have completed or the highest degree you have received? 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 PROTOTYPE ENGINEER Gender Identity Female 03/02/2021 5:45 PM CDT Sexual Orientation Straight 02/28/2020 12 :51 AM CDT COVID-19 Exposure Response Date Recorded In the last month, have you been in contact with someone who was confirmed or suspected to have Coronavirus / COVID-19? No / Unsure 09/02/2021 12:26 PM PROTOTYPE ENGINEER documented as of this encounter Plan of Treatment Upcoming Encounters Date Type Department Care Team (Late st Contact Info) Description 10/23/2024 9:30 AM CDT Office Visit [facility] [place] [address] [place] [address], [address] [place] [address] [place] [address] [place] [address] Johnny Penn MD [address] [place] [address] documented as of this encounter Visit Diagnoses Not on filedocumented in this encounter Additional Health Concerns Infection Onset Date Last Indicated Resolved Time Rule Out COVID-19 12/18/2021 12/18/2021 12/19/2021 11:34 AM CDT Rule Out COVID-19 02/24/2022 02/24/2022 02/25/2022 1:08 PM CDT Rule Out COVID-19 04/26/2022 04/26/2022 04/26/2022 6:47 AM CDT Rule Out COVID-19 05/17/2022 05/17/2022 05/17/2022 10:20 PM PROTOTYPE ENGINEER Rule Out COVID-19 06/09/2022 06/09/2022 06/09/2022 9:35 AM PROTOTYPE ENGINEER COVID-19 06/09/2022 06/09/2022 06/30/2022 11:4 1 PM PROTOTYPE ENGINEER Rule Out COVID-19 11/10/2022 11/10/2022 11/11/2022 12:17 PM CDT Rule Out COVID-19 03/07/2023 03/07/2023 03/07/2023 1:20 PM CDT Rule Out COVID-19 12/26/2023 12/26/2023 12/26/2023 9:50 AM CDT Rule Out COVID-19 04/09/2024 04/09/2024 04/10/2024 6:48 PM CDT Assessment Noted Time PHQ-9 Depression Total Score: 2 04/02/20 10:19 AM CDT documented as of this encounter Care Teams Hospitalist Physician Relationship Specialty Start Date End Date Marija Edgar APRN CNP PCP - General Nurse Practitioner 04/30/20 04/14/23 Esha Grimm PA-C [address] [place] [address] PCP - General Family Medicine 05/04/23 Lita Oseguera Personal Advocate & Liaison (PAL) 02/28/20 03/27/23 Marija Edgar APRN CERTIFIED MASTER SAFECRACKER Assigned PCP 06/08/20 04/29/23 Mynor Broussard MD 6363 [facility] 500 [place] 39[address]95 Assigned Surgical Provider 06/01/20 11/28/21 Keisha Dotson MD 909 [place], [place] 968505 Assigned Neuroscience Provider 06/04/20 04/01/23 Galo Burrell MD Assigned Heart and Vascular Provider 10/05/20 04/02/22 [facility] 30[address] [place] [address] Pharmacist Pharmacist 04/17/21 Rain Galaviz PA-C [address] [facility] [address] [place] [address] Physician Distribution Systems Superintendent Dermatology 04/28/21 Summer Lara MD [address] [place] [address] 040074 Assigned OBGYN Provider 05/31/21 2 Tavia Wyatt MD [address] [place] [address] 726304 Dermatology 07/14/21 Johnny Murillo MD [address] [place] [address] Assigned Musculoskeletal Provider 08/30/21 03/17/22 Erica Farrell APRN CERTIFIED MASTER SAFECRACKER [address] [facility] [address] [place] [address] Nurse Practitioner Cardiovascular Disease 09/09/21 Teresita Bean, [facility] [address] [place] [address] Pharmacist Pharmacist 09/24/21 09/29/21 Tavia Wyatt MD [address] [place] [address] Assigned Surgical Provider 11/29/21 05/07/22 [facility] [address] [place] [address] Assigned MTM Pharmacist 01/02/22 Rich Barrett MD 516 [facility] 9A [place], [place] 7[address] Physician Ophthalmology 01/21/22 Neil Kent MD 500 [place], [place] 259255 Dermatology 02/24/22 R[place] Story DPM [address] [facility] 300 [place] [address] Assigned Musculoskeletal Provider 03/20/22 08/13/22 Erica Farrell APRN CERTIFIED MASTER SAFECRACKER 1700 [place] [address] Assigned Heart and Vascular Provider 04/03/22 04/16/22 Diana Desir, [facility] [address] [place] [address] Assigned MTM Pharmacist 04/07/22 Jelena David OD [address] [place] [place] [address] Assigned Surgical Provider 05/08/22 10/08/22 Galo Burrell MD Assigned Heart and Vascular Provider 04/17/22 06/11/22 Livan Sharif MD [address] [place] [address] Cardiovascular Disease 05/14/22 Livan Sharif MD [address] [place] [address] Assigned Heart and Vascular Provider 06/12/22 07/23/22 Catherine Cm MD [address] [place] [address] Cardiovascular Disease 07/21/22 Valery Veronica PA-C [address] [place], [place] 8825[address] Physician Distribution Systems Superintendent Dermatology 07/21/22 Catherine Cm MD [address] [place] 163955 Assigned Heart and Vascular Provider 07/24/22 11/05/22 Johnny Murillo MD [facility] [address] Assigned Musculoskeletal Provider 08/14/22 10/08/22 Brea Quinn APRN CERTIFIED MASTER SAFECRACKER 500 [place] [address] Nurse Practitioner Dermatology 09/21/22 Brea Quinn APRN CERTIFIED MASTER SAFECRACKER 6401 [place] [address] Assigned Surgical Provider 10/09/22 05/01/24 [place] [address] [facility] [address] [place] [address] Assigned Musculoskeletal Provider 10/09/22 05/01/24 Livan Sharif MD [address] [facility] [address] [place] [address] Assigned Heart and Vascular Provider 11/06/22 11/12/22 Catherine Cm MD [address] [facility] [address] [place] [address] Assigned Heart and Vascular Provider 11/13/22 05/27/23 Sydnie Martinez RN Personal Advocate & Liaison (PAL) Family Medicine 03/28/23 07/31/23 Alfonso Renteria MD 5775 [facility] 200 [place], [place] 180316 Assigned Neuroscience Provider 04/02/23 Cheng Todd PA-C [address] [place] [address] [id number] Assigned PCP 04/30/23 07/15/23 Radha Lomeli APRN CERTIFIED MASTER SAFECRACKER [address] [facility] [address] [place] [address] Assigned Heart and Vascular Provider 05/28/23 Jelena David OD [address] [facility] [place] [address] MD Ophthalmology 06/15/23 Pao Joseph, VJ Personal Advocate & Liaison (PAL) Nurse 08/01/23 11/07/23 Esha Grimm PA-C [address] [place] [address] Assigned PCP 07/16/23 Valery Veronica PA-C [address] [place] [address] Physician Distribution Systems Superintendent Dermatology 09/19/23 Rey Tay MD [address] [place] [address] Gastroenterology 09/20/23 oRcky Zepeda DO [address] [place] [address] 114335 Physician Gastroenterology 09/20/23 Philip Dumont MD [address] [place] [address] 026695 Physician Ophthalmology 09/22/23 Meredith Carrera PA-C 909 [place] [address] Assigned Gastroenterology Provider 11/01/23 Neil Kent MD [address] 897580 Dermatology 11/02/23 [place] [address] [id number] Neurological Surgery 12/26/23 Audrey Waite PA-C [address] [place] [address] 583185 Physician Distribution Systems Superintendent Dermatology 02/28/24 Valery Veronica PA-C 879426 [place], [place] [address] Physician Distribution Systems Superintendent Dermatology 04/10/24 Herminia Hatch MD [facility]5 [place], [place] [address] Assigned Rheumatology Provider 07/02/24 documented as of this encounter
--- OUTSIDE RECORDS SUMMARY | 2024-08-28 19:05 | XMS_ITS | Encounter Summary ---
Author Organization [facility] Address [address] [place] [address] Care Team Providers Care Mortgage Branch Manager Name Role Phone Lita Oseguera Unavailable Unavailable Marija Edgar APRN EMPLOYEE BENEFITS MANAGER Primary Care Provider + Marija Edgar APRN EMPLOYEE BENEFITS MANAGER Unavailable Mynor Broussard MD Unavailable [phone] Keisha Dotson MD Unavailable [phone] Galo Burrell MD Unavailable Unavailable Diana Desir [facility] Unavailable Rain Galaviz PA-C Unavailable Summer Lara MD Unavailable [phone] Tavia Wyatt MD Unavailable Johnny Murillo MD Unavailable [phone] Erica Farrell APRN EMPLOYEE BENEFITS MANAGER Unavailable Teresita Bean [facility] Unavailable Tavia Wyatt MD Unavailable Diana Desir [facility] Unavailable Rich Barrett MD Unavailable [phone] Neil Kent MD Unavailable Roney Story DPM Unavailable Erica Farrell FLOOR SCRUBBER EMPLOYEE BENEFITS MANAGER Unavailable Thang Diana Stanislav [facility] Unavailable Jelena David OD Unavailable Galo Burrell MD Unavailable Unavailable Livan Sharif MD Unavailable + Livan Sharif MD Unavailable + Catherine Cm MD Unavailable + Valery Veronica PA-C Unavailable [phone] Catherine Cm MD Unavailable + Johnny Murillo MD Unavailable [phone] Brea Quinn FLOOR SCRUBBER EMPLOYEE BENEFITS MANAGER Unavailable [phone] Brea Quinn FLOOR SCRUBBER EMPLOYEE BENEFITS MANAGER Unavailable [phone] Jose Francisco Johnson MD Unavailable Livan Sharif MD Unavailable + IsCatherine hobbs MD Unavailable + Sydnie Martinez RN Unavailable Unavailable Alfonso Renteria MD Unavailable Esha Grimm-C Primary Care Provider Cheng Todd PA-C Unavailable Radha Lomeli FLOOR SCRUBBER EMPLOYEE BENEFITS MANAGER Unavailable [phone] Jelena David OD Unavailable Pao Joseph RN Unavailable Unavailable Esha Grimm-C Unavailable [phone] JeremíasValery damon PA-C Unavailable [phone] Rey Tay MD Unavailable Rocky Zepeda DO Unavailable Philip Dumont MD Unavailable [phone] Meredith CarreraC Unavailable [phone] Neil Kent MD Unavailable Juan Pablo Emmanuel MD Unavailable [phone] Audrey WaiteC Unavailable [phone] Valery Veronica PA-C Unavailable [phone] Herminia Hatch MD Unavailable Encounter Details Date [...] week 08/07/2020 How often do you attend [facility] or [facility]? More than 4 times [...] in a intermediate (including now)? No 08/11/2020 [place] Depression Scale Answer Date Recorded [place] Depression Score 5 01/14/2021 Last EPDS Self Harm Result Not on file 01/14 Education Answer Date Recorded What is the highest level of school you have completed or the highest degree you have received? 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 MARKET RISK ANALYST Gender Identity Female 03/02/2021 5:45 PM CDT Sexual Orientation Straight 02/28/2020 12 :51 AM CDT COVID-19 Exposure Response Date Recorded In the last month, have you been in contact with someone who was confirmed or suspected to have Coronavirus / COVID-19? No / Unsure 09/02/2021 12:26 PM MARKET RISK ANALYST documented as of this encounter Plan of Treatment Upcoming Encounters Date Type Department Care Team (Late st Contact Info) Description 10/23/2024 9:30 AM CDT Office Visit [facility] Neurology [address], [address] [place] [address] [place] [address] [address] [place] [id number] Johnny Penn MD [address] [facility] [place] [address] documented as of this encounter Visit Diagnoses Not on filedocumented in this encounter Additional Health Concerns Infection Onset Date Last Indicated Resolved Time Rule Out COVID-19 12/18/2021 12/18/2021 12/19/2021 11:34 AM CDT Rule Out COVID-19 02/24/2022 02/24/2022 02/25/2022 1:08 PM CDT Rule Out COVID-19 04/26/2022 04/26/2022 04/26/2022 6:47 AM CDT Rule Out COVID-19 05/17/2022 05/17/2022 05/17/2022 10:20 PM MARKET RISK ANALYST Rule Out COVID-19 06/09/2022 06/09/2022 06/09/2022 9:35 AM MARKET RISK ANALYST COVID-19 06/09/2022 06/09/2022 06/30/2022 11:4 1 PM MARKET RISK ANALYST Rule Out COVID-19 11/10/2022 11/10/2022 11/11/2022 12:17 PM CDT Rule Out COVID-19 03/07/2023 03/07/2023 03/07/2023 1:20 PM CDT Rule Out COVID-19 12/26/2023 12/26/2023 12/26/2023 9:50 AM CDT Rule Out COVID-19 04/09/2024 04/09/2024 04/10/2024 6:48 PM CDT Assessment Noted Time PHQ-9 Depression Total Score: 2 04/02/20 10:19 AM CDT documented as of this encounter Care Teams Mortgage Branch Manager Relationship Specialty Start Date End Date Marija Edgar APRN EMPLOYEE BENEFITS MANAGER PCP - General Nurse Practitioner 04/30/20 04/14/23 Esha Grimm PA-C [address] [place] [address] PCP - General Family Medicine 05/04/23 Lita Oseguera Personal Advocate & Liaison (PAL) 02/28/20 03/27/23 Marija Edgar APRN EMPLOYEE BENEFITS MANAGER Assigned PCP 06/08/20 04/29/23 Mynor Broussard MD 6363 [facility] 500 [place], [place] 77[address] Assigned Surgical Provider 06/01/20 11/28/21 Keisha Dotson MD 909 [place] [address] Assigned Neuroscience Provider 06/04/20 04/01/23 Galo Burrell MD Assigned Heart and Vascular Provider 10/05/20 04/02/22 [facility] 3033 [place] [address] Pharmacist Pharmacist 04/17/21 Rain Galaviz PA-C [address] [place] [address] [address] [place] [address] Physician Acute Coordinator Dermatology 04/28/21 Summer Lara MD [address] [place] [address] Assigned OBGYN Provider 05/31/21 2 Tavia Wyatt MD [address] [place] [address] 140514 Dermatology 07/14/21 Johnny Murillo MD [facility] [place], [place] 24[address] [place] [address] Assigned Musculoskeletal Provider 08/30/21 03/17/22 Erica Farrell APRN EMPLOYEE BENEFITS MANAGER [address] [facility] [address] [place] [address] Nurse Practitioner Cardiovascular Disease 09/09/21 Teresita Bean [facility] [address] [facility] [place] [address] Pharmacist Pharmacist 09/24/21 09/29/21 Tavia Wyatt MD [address] [place] [address] Assigned Surgical Provider 11/29/21 05/07/22 Diana Desir [facility] 30[address] [place] [address] Assigned MTM Pharmacist 01/02/22 Rich Barrett MD [address] 508585 Physician Ophthalmology 01/21/22 Neil Kent MD 500 [place] [address] Dermatology 02/24/22 [place] [address] [facility] 300 [place] [address] Assigned Musculoskeletal Provider 03/20/22 08/13/22 Erica Farrell APRN EMPLOYEE BENEFITS MANAGER 1700 [place] [address] Assigned Heart and Vascular Provider 04/03/22 04/16/22 Diana Desir [facility] 3033 [place] [address] Assigned MTM Pharmacist 04/07/22 Jelena David OD [address] [facility] [place] [address] Assigned Surgical Provider 05/08/22 10/08/22 Galo Burrell MD Assigned Heart and Vascular Provider 04/17/22 06/11/22 Livan Sharif MD [address], [facility] [address] [place] 68[address] Cardiovascular Disease 05/14/22 Livan Sharif MD [address], [facility] [address] [place] [address]05 Assigned Heart and Vascular Provider 06/12/22 07/23/22 Catherine Cm MD [address] [facility]00 [place] 4[address] Cardiovascular Disease 07/21/22 Valery Veronica, PAUcheC 909 [place], [place] 005085 Physician Acute Coordinator Dermatology 07/21/22 Catherien Cm MD [address] [facility]00 [place] [address]505 Assigned Heart and Vascular Provider 07/24/22 11/05/22 Johnny Murillo MD [facility] 691724 Assigned Musculoskeletal Provider 08/14/22 10/08/22 Brea Quinn APRN EMPLOYEE BENEFITS MANAGER [address] [place] [address] Nurse Practitioner Dermatology 09/21/22 Brea Quinn APRN EMPLOYEE BENEFITS MANAGER 6401 [place] [address] Assigned Surgical Provider 10/09/22 05/01/24 [place] [address] [address] Assigned Musculoskeletal Provider 10/09/22 05/01/24 Livan Sharif MD [address], [facility] [address] [place] [address] Assigned Heart and Vascular Provider 11/06/22 11/12/22 Catherine Cm MD 6405 [facility] [address] [place] [address] Assigned Heart and Vascular Provider 11/13/22 05/27/23 Sydnie Martinez RN Personal Advocate & Liaison (PAL) Family Medicine 03/28/23 07/31/23 Alfonso Renteria MD 5775 [facility] 200 [place], [place] 506[address] Assigned Neuroscience Provider 04/02/23 Cheng Todd PA-C [address] [place] [address] Assigned PCP 04/30/23 07/15/23 Radha Lomeli APRN EMPLOYEE BENEFITS MANAGER 6405 [facility] [address] [place], [place] 695715 Assigned Heart and Vascular Provider 05/28/23 Jelena David OD [address] [facility] [place] [address] MD Ophthalmology 06/15/23 Pao Joseph, VJ Personal Advocate & Liaison (PAL) Nurse 08/01/23 11/07/23 Esha Grimm PA-C [address] [place] [phone] Assigned PCP 07/16/23 Valery Veronica PA-C [address] [place] [address] 843245 Physician Acute Coordinator Dermatology 09/19/23 Rey Tay MD [address] [place] [address] 096805 MD Gastroenterology 09/20/23 Rocky Zepeda DO [address] [place] [address] 291645 Physician Gastroenterology 09/20/23 Philip Dumont MD [address] [place] [address] 411105 Physician Ophthalmology 09/22/23 Meredith Carrera PA-C [address] [place] [address] 711545 Assigned Gastroenterology Provider 11/01/23 Neil Kent MD [address] [address] Dermatology 11/02/23 [place] [address] 041547 Neurological Surgery 12/26/23 Audrey Waite PA-C 500 [place] [address] Physician Acute Coordinator Dermatology 02/28/24 Valery Veronica PA-C 677061 [address], [place] [address] Physician Acute Coordinator Dermatology 04/10/24 Herminia Hatch MD [facility]5 [place], [place] 88046125 Assigned Rheumatology Provider 07/02/24 documented as of this encounter
--- OUTSIDE RECORDS SUMMARY | 2024-08-28 19:05 | XMS_ITS | Encounter Summary ---
Author Organization [facility] Address [address] [place] [address] Care Team Providers Care Hub Borer Name Role Phone Marija Edgar ARLENE UNION LABORER Unavailable Diana Desir [facility] Unavailable Rain Galaviz PA-C Unavailable Tavia Wyatt MD Unavailable Erica Farrell APRN UNION LABORER Unavailable Rich Barrett MD Unavailable [phone] Neil Kent MD Unavailable Diana Desir [facility] Unavailable Livan Sharif MD Unavailable Catherine Cm MD Unavailable + Valery Veronica PA-C Unavailable [phone] Brea Quinn APRN UNION LABORER Unavailable Brea Quinn APRN UNION LABORER Unavailable Jose Francisco Johnson MD Unavailable Catherine Cm MD Unavailable + Sydnie Martinez RN Unavailable Unavailable Alfonso Renteria MD Unavailable [phone] Esha Grimm PA-C Primary Care Provider Cheng Todd PA-C Unavailable Radha Lomeli APRN UNION LABORER Unavailable Jelena David OD Unavailable [phone] Pao Joseph RN Unavailable Unavailable Esha Grimm PA-C Unavailable Valery Veronica PA-C Unavailable [phone] Rey Tay MD Unavailable Rocky Zepeda DO Unavailable Philip Dumont MD Unavailable Meredith Carrera PA-C Unavailable Neil Kent MD Unavailable Juan Pablo Emmanuel MD Unavailable [phone] Audrey Waite PA-C Unavailable Valery Veronica-C Unavailable [phone] Herminia Hatch MD Unavailable Encounter Details Date Type Department Care Team (Late st Contact Info) Description 04/18/2023 MyC Medical Advice [facility] Gastroenterology Clinic [address] [address] Mary Calvo Social History Tobacco [...] you attend [facility] or bahai services? 1 to 4 [...] Answer Date Recorded PHQ-2 Score 0 03/10/2023 [facility] of Occupat [...] exercise at this level? 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 Gender Identity Female 03/02/2021 5:45 PM CDT [...] Visit [facility] Neurology [address], [address] [place] [id number] [place] [address] [place], [place] [id number] Johnny Penn MD [address] [facility] [place] [address] documented as of this encounter Visit Diagnoses Not on filedocumented in this encounter Additional Health Concerns Infection Onset Date Last Indicated Resolved Time Rule Out COVID-12/26/2023 12/26/2023 12/26/2023 9:50 AM CDT Rule Out COVID-19 04/09/2024 04/09/2024 04/10/2024 6:48 PM CDT Assessment Noted Time PHQ-9 Depression Total Score: 5 03/10/20 6:49 AM CDT documented as of this encounter Care Teams Hub Borer Relationship Specialty Start Date End Date Esha Grimm PA-C [address] [place] [address] PCP - General Family Medicine 05/04/23 Marija Edgar APRN UNION LABORER Assigned PCP 06/08/20 04/29/23 Diana Desir, [facility] [address] [place] [address] Pharmacist Pharmacist 04/17/21 Rain Galaviz PA-C [address] [place] [address] [address] [place] [address] Physician Sign Language Interpreter Dermatology 04/28/21 Tavia Wyatt MD [address] [place] [address] [address] [place] [address] Dermatology 07/14/21 Erica Farrell APRN UNION LABORER [address] [place], [place] [address] Nurse Practitioner Cardiovascular Disease 09/09/21 Rich Barrett MD 516 [facility], [facility] [address] [place], [place] [address] Physician Ophthalmology 01/21/22 Neil Kent MD [address] [place], [place] 7[address] Dermatology 02/24/22 Diana Desir, [facility] [address] [place], [place] [address]46 Assigned [place] Pharmacist 04/07/22 Livan Sharif MD [address], [facility] [address] [place] [address] Cardiovascular Disease 05/14/22 Catherine Cm MD [address] [facility] [address] [place], [place] [address] Cardiovascular Disease 07/21/22 Valery Veronica, PAUcheC [address] [place], [place] [address] Physician Sign Language Interpreter Dermatology 07/21/22 Brea Quinn APRN UNION LABORER 500 [place] [address] Nurse Practitioner Dermatology 09/21/22 Brea Quinn APRN UNION LABORER [address] [facility] [place] [id number] Assigned Surgical Provider 10/09/22 05/01/24 [place] [address] [address] [facility] 300 [place] [address] Assigned Musculoskeletal Provider 10/09/22 05/01/24 Catherine Cm MD [address] [facility] [address] [place] [address] Assigned Heart and Vascular Provider 11/13/22 05/27/23 Sydnie Martinez RN Personal Advocate & Liaison (PAL) Family Medicine 03/28/23 07/31/23 Alfonso Renteria MD 5775 [facility] 200 [place] [address] Assigned Neuroscience Provider 04/02/23 Cheng Todd PA-C [address] [place] [address] [id number] Assigned PCP 04/30/23 07/15/23 Radha Lomeli APRN UNION LABORER 6405 [facility] [address] [place] [address] Assigned Heart and Vascular Provider 05/28/23 Jelena David OD 3305 [facility] [place] [id number] MD Ophthalmology 06/15/23 Pao Joseph, RN Personal Advocate & Liaison (PAL) Nurse 08/01/23 11/07/23 Esha Grimm PA-C [address] [place] [address] Assigned PCP 07/16/23 Valery Veronica PA-C [address] [place] [address] Physician Sign Language Interpreter Dermatology 09/19/23 Rey Tay MD [address] [place] [address] MD Gastroenterology 09/20/23 Rocky Zepeda DO [address] [place] [address]78[address] Physician Gastroenterology 09/20/23 Philip Dumont MD [address] [place] [address] 141335 Physician Ophthalmology 09/22/23 Meredith Carrera PA-C [address] [place] [address] [id number] Assigned Gastroenterology Provider 11/01/23 Neil Kent MD [address] 508[address] Dermatology 11/02/23 [place] [address] [place] [address] Neurological Surgery 12/26/23 Audrey Waite PA-C 500 [place] [address] Physician Sign Language Interpreter Dermatology 02/28/24 Valery Veronica PA-C [address] [place] [address] Physician Sign Language Interpreter Dermatology 04/10/24 Herminia Hatch MD [address] [place] [address] [id number] Assigned Rheumatology Provider 07/02/24 documented as of this encounter
--- OUTSIDE RECORDS SUMMARY | 2024-08-28 19:05 | XMS_ITS | Encounter Summary ---
Author Organization [facility] Address [address] [place] [address] Care Team Providers Care Scaffold Erector Name Role Phone Diana Desir [facility] Unavailable Rain Galaviz PA-C Unavailable [phone] Tavia Wyatt MD Unavailable Erica Farrell APRN SHOPPING INVESTIGATOR Unavailable Rich Barrett MD Unavailable [phone] Neil Kent MD Unavailable Diana Desir [facility] Unavailable Livan Sharif MD Unavailable Catherine Cm MD Unavailable + Valery Veronica PA-C Unavailable Brea Quinn SYSTEMS PROJECT MANAGER SHOPPING INVESTIGATOR Unavailable Brea Quinn SYSTEMS PROJECT MANAGER SHOPPING INVESTIGATOR Unavailable Jose Francisco Johnson MD Unavailable Alfonso Renteria MD Unavailable [phone] Esha Grimm PA-C Primary Care Provider Lomeli, Radha E SYSTEMS PROJECT MANAGER SHOPPING INVESTIGATOR Unavailable [phone] Jelena David OD Unavailable Esha Grimm PA-C Unavailable [phone] Valery Veronica PA-C Unavailable Rey Tay MD Unavailable Rocky Zepeda DO Unavailable Philip Dumont MD Unavailable [phone] Meredith Carrera PA-C Unavailable [phone] Neil Kent MD Unavailable Juan Pablo Emmanuel MD Unavailable [phone] Audrey Waite PA-C Unavailable [phone] Valery Veronica PA-C Unavailable [phone] Herminia Hatch MD Unavailable Encounter Details Date Type Department Care Team (Late st Contact Info) Description 03/06/2024 MyC Medical Advice [facility] Spine and Neurosurgery [address] [place] [address] Ebony Cid APRN SHOPPING INVESTIGATOR 500 [place] [address] Social History Tobacco Use Types [...] you attend [facility] or sabianist services? 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 Gender Identity Female 03/02/2021 5:45 PM CDT Sexual Orientation Straight 02/28/2020 12 :51 AM CDT documented as of this encounter Plan of Treatment Upcoming Encounters Date Type Department Care Team (Late st Contact Info) Description 10/23/2024 9:30 AM CDT Office Visit [facility] Neurology Clinics [address], [address] [place] [address] [place] [address] [place] [address] Johnny Penn MD [address] [place] [address] documented as of this encounter Visit Diagnoses Not on filedocumented in this encounter Additional Health Concerns Infection Onset Date Last Indicated Resolved Time Rule Out COVID-19 04/09/2024 04/09/2024 04/10/2024 6:48 PM CDT Assessment Noted Time PHQ-9 Depression Total Score: 3 02/07/20 24 9:33 AM CDT documented as of this encounter Care Teams Scaffold Erector Relationship Specialty Start Date End Date Esha Grimm PA-C [address] [place] [address] PCP - General Family Medicine 05/04/23 Diana Desir, [facility] [address], [place] [address] Pharmacist Pharmacist 04/17/21 Rain Galaviz PA-C [address] [place] [address] [address] [place] [address] Physician Honey Grader And Blender Dermatology 04/28/21 Tavia Wyatt MD [address] [place] [address] [place] [address] [id number] Dermatology 07/14/21 Erica Farrell APRN SHOPPING INVESTIGATOR 6405 [facility] [address] [place], [place] [address] Nurse Practitioner Cardiovascular Disease 09/09/21 Rich Barrett MD [address] [id number] Physician Ophthalmology 01/21/22 Neil Kent MD 500 [place], [place] [address] Dermatology 02/24/22 Diana Deisr, [facility] [address] [place], [place] 590566 Assigned MTM Pharmacist 04/07/22 Livan Sharif MD [address], [facility] [address] [place], [place] [address] Cardiovascular Disease 05/14/22 Catherine Cm MD [address] [facility] [address] [place], [place] 8[address] Cardiovascular Disease 07/21/22 Valery Veronica, PA-C [address] [place] [address] Physician Honey Grader And Blender Dermatology 07/21/22 Brea Quinn APRN SHOPPING INVESTIGATOR 500 [place], [place] 59[address] Nurse Practitioner Dermatology 09/21/22 Brea Quinn APRN SHOPPING INVESTIGATOR [address] [place] [address] Assigned Surgical Provider 10/09/22 05/01/24 [place] [address] [facility] 300 [place], [place] 58[address]57 Assigned Musculoskeletal Provider 10/09/22 05/01/24 Alfonso Renteria MD 5775 [facility] 200 [place], [place] 8465[address] Assigned Neuroscience Provider 04/02/23 Armani Radha Stovall SYSTEMS PROJECT MANAGER SHOPPING INVESTIGATOR [address] [place], [place] 35[address] Assigned Heart and Vascular Provider 05/28/23 Jelena David OD [address] [place] [address] MD Ophthalmology 06/15/23 Esha Grimm PA-C [address] [place] [address] Assigned PCP 07/16/23 Valery Veronica PA-C [address] [place] [address]44295 Physician Honey Grader And Blender Dermatology 09/19/23 Rey Tay MD [address] [place] [address] 548125 Gastroenterology 09/20/23 Rocky Zepeda DO [address] [place] [address] 241805 Physician Gastroenterology 09/20/23 Philip Dumont MD [address] [place] [address] Physician Ophthalmology 09/22/23 Meredith Carrera PA-C [address] [place] [address] Assigned Gastroenterology Provider 11/01/23 Neil Kent MD [address] [address] Dermatology 11/02/23 [place] [address] [address] Neurological Surgery 12/26/23 Audrey Waite PAUcheC 500 [place] [address] Physician Honey Grader And Blender Dermatology 02/28/24 Valery Veronica PAUcheC [address], [place] [address] Physician Honey Grader And Blender Dermatology 04/10/24 Herminia Hatch MD [facility]5 [place], [place] 236[address] Assigned Rheumatology Provider 07/02/24 documented as of this encounter
--- OUTSIDE RECORDS SUMMARY | 2024-08-28 19:05 | XMS_ITS | Encounter Summary ---
Author Organization [place] Address [address] [place] [address] Care Team Providers Care Type Disk Quality Control Supervisor Name Role Phone Lita Oseguera Unavailable Unavailable Marija Edgar APRN CRIMINAL ANALYST Primary Care Provider + Marija Edgar APRN CRIMINAL ANALYST Unavailable [phone] Keisha Dotson MD Unavailable [phone] Diana Desir [facility] Unavailable Rain Galaviz PA-C Unavailable Tavia Wyatt MD Unavailable Erica Farrell APRN CRIMINAL ANALYST Unavailable Rich Barrett MD Unavailable [phone] Neil Kent MD Unavailable Diana Desir [facility] Unavailable [phone] Livan Sharif MD Unavailable Catherine Cm MD Unavailable + Valeyr Veronica PA-C Unavailable [phone] Brea Quinn STIFF LEG OPERATOR CRIMINAL ANALYST Unavailable Brea Quinn STIFF LEG OPERATOR CRIMINAL ANALYST Unavailable Jose Francisco Johnson MD Unavailable Catherine Cm MD Unavailable + Sydnie Martinez RN Unavailable Unavailable Alfonso Renteria MD Unavailable [phone] Esha Grimm PA-C Primary Care Provider Cheng Todd PA-C Unavailable ArmaniRadha APRN CRIMINAL ANALYST Unavailable Jelena David OD Unavailable Pao Joseph RN Unavailable Unavailable Esha Grimm PA-C Unavailable [phone] Valery Veronica PA-C Unavailable Rey Tay MD Unavailable Rocky Zepeda DO Unavailable Philip Dumont MD Unavailable Meredith Carrera PA-C Unavailable Neil Kent MD Unavailable Juan Pablo Emmanuel MD Unavailable Audrey Waite PA-C Unavailable JeremíasValery damon PA-C Unavailable Herminia Hatch MD Unavailable Encounter Details Date Type Department Care Team (Late st Contact Info) Description 01/28/2023 MyC Medical Advice [facility] Heart Clinic [address] [place] [address] Margaret Rendon, RN Social History Tobacco Use [...] How often do you attend anabaptism or mormon serv ices? Never 09/22/2021 Do [...] in a retirement (including now)? No 09/22/2021 [place] Depression Scale [...] PM CDT Legal Sex Female 4:[address] Gender Identity Female 03/02/2021 5:45 PM [...] Office Visit [facility] Neurology [facility] [address] [facility], [address] [place] [address] [place] [address] [address] [place], [place] [address] Johnny Penn MD [address] [place] [phone] documented as of this encounter Visit Diagnoses [...] documented as of this encounter Care Teams Type Disk Quality Control Supervisor Relationship Specialty Start Date End Date Marija Edgar APRN CNP PCP - General Nurse Practitioner 04/30/20 04/14/23 Esha Grimm PA-C [address] [place] [address] PCP - General Family Medicine 05/04/23 Lita Oseguera Personal Advocate & Liaison (PAL) 02/28/20 03/27/23 Marija Edgar APRN CRIMINAL ANALYST Assigned PCP 06/08/20 04/29/23 Keisha Dotson MD 909 [place] [address] Assigned Neuroscience Provider 06/04/20 04/01/23 Diana Desir, [facility] [address] [place], [place] [address] Pharmacist Pharmacist 04/17/21 Rain Galaviz PA-C [address] [place] [address] [address] [place] [address] Physician Children Counselor Dermatology 04/28/21 Tvaia Wyatt MD [address] [place] [address] [address] [place] [address] Dermatology 07/14/21 Erica Farrell APRN CRIMINAL ANALYST [address] [place] [address] Nurse Practitioner Cardiovascular Disease 09/09/21 Rich Barrett MD [address] [address] Physician Ophthalmology 01/21/22 Neil Kent MD [address] [place] [address]55355 Dermatology 02/24/22 [facility] 3033 [place] [address] Assigned MTM Pharmacist 04/07/22 Livan Sharif MD [address] [place] [address] Cardiovascular Disease 05/14/22 Catherine Cm MD [address] [place] 372045 Cardiovascular Disease 07/21/22 Valery Veronica, PAUcheC [address] [place] [address]4215 Physician Children Counselor Dermatology 07/21/22 Brea Quinn APRN CRIMINAL ANALYST 500 [place], [place] [address] Nurse Practitioner Dermatology 09/21/22 Brea Quinn APRN CRIMINAL ANALYST [address] [place] [facility] [address] Assigned Surgical Provider 10/09/22 05/01/24 [place] [address] [place] [address] Assigned Musculoskeletal Provider 10/09/22 05/01/24 Catherine Cm MD [address] [place] 670615 Assigned Heart and Vascular Provider 11/13/22 05/27/23 Sydnie Martinez RN Personal Advocate & Liaison (PAL) Family Medicine 03/28/23 07/31/23 Alfonso Renteria MD [address]75 [facility] 200 [place] [address] Assigned Neuroscience Provider 04/02/23 Cheng Todd PA-C [address] [place] [address] Assigned PCP 04/30/23 07/15/23 Radha Lomeli APRN CRIMINAL ANALYST 6405 [facility] [address] [place] [address] Assigned Heart and Vascular Provider 05/28/23 Jelena David OD [address] [facility] [address] Ophthalmology 06/15/23 Pao Joseph, VJ Personal Advocate & Liaison (PAL) Nurse 08/01/23 11/07/23 Esha Grimm PA-C [address] [place] [address] Assigned PCP 07/16/23 Valery Veronica PA-C 9 [place], [place] 5[address] Physician Children Counselor Dermatology 09/19/23 Rey Tay MD 9 [place] [address] Gastroenterology 09/20/23 Rocky Zepeda DO 500 [place] [address] Physician Gastroenterology 09/20/23 Philip Dumont MD 6 [place] [address] Physician Ophthalmology 09/22/23 Meredith Carrera PA-C [address] [place] [address] Assigned Gastroenterology Provider 11/01/23 Neil Kent MD [address] [address] MD Dermatology 11/02/23 [place] [address] [address] [address] Neurological Surgery 12/26/23 Audrey Waite PA-C 500 [place] [address] Physician Children Counselor Dermatology 02/28/24 Valery Veronica PA-C [address] [place] [address] Physician Children Counselor Dermatology 04/10/24 Herminia Hatch MD [facility]5 [place], [place] [address] Assigned Rheumatology Provider 07/02/24 documented as of this encounter
--- OUTSIDE RECORDS SUMMARY | 2024-08-28 19:05 | XMS_ITS | Encounter Summary ---
Author Organization [facility] Address [address] [place] [address] Care Team Providers Care In Store Banker Name Role Phone Lita Oseguera Unavailable Unavailable Marija Edgar APRN HANDBAG OPERATOR Primary Care Provider + Marija Edgar APRN HANDBAG OPERATOR Unavailable [phone] Mynor Broussard MD Unavailable [phone] Keisha Dotson MD Unavailable Galo Burrell MD Unavailable Unavailable Diana Desir [facility] Unavailable Rain Galaviz PA-C Unavailable Summer Lara MD Unavailable [phone] Tavia Wyatt MD Unavailable Johnny Murillo MD Unavailable Erica Farrell APRN HANDBAG OPERATOR Unavailable Tavia Wyatt MD Unavailable Diana Desir [facility] Unavailable [phone] Rich Barrett MD Unavailable [phone] Neil Kent MD Unavailable Roney Story DPM Unavailable Erica Farrell AGRICULTURAL EQUIPMENT DESIGN ENGINEER HANDBAG OPERATOR Unavailable Diana Desir [facility] Unavailable Jelena David OD Unavailable Galo Burrell MD Unavailable Unavailable Livan Sharif MD Unavailable Livan Sharif MD Unavailable Catherine Cm MD Unavailable + Valery Veronica PA-C Unavailable [phone] Catherine Cm MD Unavailable + Johnny Murillo MD Unavailable [phone] Brea Quinn AGRICULTURAL EQUIPMENT DESIGN ENGINEER HANDBAG OPERATOR Unavailable [phone] Brea Quinn AGRICULTURAL EQUIPMENT DESIGN ENGINEER HANDBAG OPERATOR Unavailable [phone] Jose Francisco Johnson MD Unavailable Livan Sharif MD Unavailable + IsCatherine hobbs MD Unavailable + Sydnie Martinez RN Unavailable Unavailable Alfonso Renteria MD Unavailable Esha Grimm PA-C Primary Care Provider Cheng Todd PA-C Unavailable Radha Lomeli AGRICULTURAL EQUIPMENT DESIGN ENGINEER HANDBAG OPERATOR Unavailable [phone] Jelena David OD Unavailable [phone] Pao Joseph RN Unavailable Unavailable Esha Grimm PA-C Unavailable [phone] Valery Veronica PA-C Unavailable [phone] Rey Tay MD Unavailable Rocky Zepeda DO Unavailable Philip Dumont MD Unavailable Meredith Carrera PA-C Unavailable [phone] Neil Kent MD Unavailable Juan Pablo Emmanuel MD Unavailable [phone] Audrey Waite PA-C Unavailable [phone] Valery Veronica PA-C Unavailable [phone] Herminia Hatch MD Unavailable Encounter Details Date Type Department Care Team (Late st Contact Info) Description 10/17/2021 [facility] Medical Advice [address] [address] [facility] [address] [place] [address] Social History Tobacco Use Types Packs/Day Years [...] How often do you attend judaism or yazdanism serv ices? Never 09/22/2021 Do [...] in a mcfp (including now)? No 09/22/2021 [place] Depression Scale Answer Date Recorded [place] Depression Score 5 01/14/2021 Last EPDS Self Harm Result Not on file 01/14 Education Answer Date Recorded What is the highest level of school you have completed or the highest degree you have received? 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 INDEPENDENT CROP CONSULTANT Gender Identity Female 03/02/2021 5:45 PM [...] Office Visit [facility] [address], [address] [place] [address] [place] [address] [address] [place] [address] Johnny Penn MD [address] [place] [address] documented as of this encounter Visit Diagnoses Not on filedocumented in this encounter Additional Health Concerns Infection Onset Date Last Indicated Resolved Time Rule Out COVID-19 12/18/2021 12/18/2021 12/19/2021 11:34 AM CDT Rule Out COVID-19 02/24/2022 02/24/2022 02/25/2022 1:08 PM CDT Rule Out COVID-19 04/26/2022 04/26/2022 04/26/2022 6:47 AM CDT Rule Out COVID-19 05/17/2022 05/17/2022 05/17/2022 10:20 PM INDEPENDENT CROP CONSULTANT Rule Out COVID-19 06/09/2022 06/09/2022 06/09/2022 9:35 AM INDEPENDENT CROP CONSULTANT COVID-19 06/09/2022 06/09/2022 06/30/2022 11:4 1 PM INDEPENDENT CROP CONSULTANT Rule Out COVID-19 11/10/2022 11/10/2022 11/11/2022 12:17 PM CDT Rule Out COVID-19 03/07/2023 03/07/2023 03/07/2023 1:20 PM CDT Rule Out COVID-19 12/26/2023 12/26/2023 12/26/2023 9:50 AM CDT Rule Out COVID-19 04/09/2024 04/09/2024 04/10/2024 6:48 PM CDT Assessment Noted Time PHQ-9 Depression Total Score: 2 04/02/20 10:19 AM CDT documented as of this encounter Care Teams In Store Banker Relationship Specialty Start Date End Date Marija Edgar APRN HANDBAG OPERATOR PCP - General Nurse Practitioner 04/30/20 04/14/23 Esha Grimm PA-C [address] [place] [address] PCP - General Family Medicine 05/04/23 Lita Oseguera Personal Advocate & Liaison (PAL) 02/28/20 03/27/23 Marija Edgar APRN HANDBAG OPERATOR Assigned PCP 06/08/20 04/29/23 Mynor Broussard MD [address] [address] Assigned Surgical Provider 06/01/20 11/28/21 Keisha Dotson MD 909 [place] [address] Assigned Neuroscience Provider 06/04/20 04/01/23 Galo Burrell MD Assigned Heart and Vascular Provider 10/05/20 04/02/22 Diana Desir, [facility] [address] [place] [address] Pharmacist Pharmacist 04/17/21 Rain Galaviz PA-C [address] [place] [address] [address] [place] [address] Physician Meter Inspector Dermatology 04/28/21 Summer Lara MD [address] [place] [address] 507054 Assigned OBGYN Provider 05/31/21 9 2 Tavia Wyatt MD [address] [place] [address] [id number] Dermatology 07/14/21 Johnny Murillo MD [facility] [place], [place] [address] Assigned Musculoskeletal Provider 2/20/22 9/7/22 Erica Farrell APRN HANDBAG OPERATOR [address] [facility] [address] [place] [address] Nurse Practitioner Cardiovascular Disease 09/09/21 Tavia Wyatt MD [address] [place], [place] 479290 Assigned Surgical Provider 11/29/21 05/07/22 Diana Desir [facility] [address] [place] [address] Assigned MTM Pharmacist 01/02/22 Rich Barrett MD [address] [address]400[address] Physician Ophthalmology 01/21/22 Neil Kent MD 500 [place], [place] [address]335 Dermatology 02/24/22 Roney Story DPM [address] [facility] [address] [place], [place] [address] Assigned Musculoskeletal Provider 03/20/22 08/13/22 Erica Farrell APRN HANDBAG OPERATOR 1700 [place] [address] Assigned Heart and Vascular Provider 04/03/22 04/16/22 Diana Desir [facility] [address] [place] [address] Assigned MTM Pharmacist 04/07/22 Jelena David OD [address] [facility] [place] [address] Assigned Surgical Provider 05/08/22 10/08/22 Galo Burrell MD Assigned Heart and Vascular Provider 04/17/22 06/11/22 Livan Sharif MD [address] [place] [address] Cardiovascular Disease 05/14/22 Livan Sharif MD [address] [place] [address] Assigned Heart and Vascular Provider 06/12/22 07/23/22 Catherine Cm MD [address] [place], [place] 397[address] Cardiovascular Disease 07/21/22 Valery Veronica, PAUcheC [address]09 [place], [place] [address] Physician Meter Inspector Dermatology 07/21/22 Catherine Cm MD [address] [place] [address] Assigned Heart and Vascular Provider 07/24/22 11/05/22 Johnny Murillo MD [address] [facility] [address] [place] [address] Assigned Musculoskeletal Provider 08/14/22 10/08/22 Brea Quinn APRN HANDBAG OPERATOR [address] [place] [address] Nurse Practitioner Dermatology 09/21/22 Brea Quinn APRN HANDBAG OPERATOR [address] [facility] [place] [address] Assigned Surgical Provider 10/09/22 05/01/24 [place] [address] [address] [facility] [address] [place] [address] Assigned Musculoskeletal Provider 10/09/22 05/01/24 Livan Sharif MD [address] [facility] [address] [place] [address] Assigned Heart and Vascular Provider 11/06/22 11/12/22 Catherine Cm MD [address] [facility] [address] [place] [address] Assigned Heart and Vascular Provider 11/13/22 05/27/23 Sydnie Martinez RN Personal Advocate & Liaison (PAL) Family Medicine 03/28/23 07/31/23 Alfonso Renteria MD 5775 [facility] 200 [place], [place] 7448[address] Assigned Neuroscience Provider 04/02/23 Cheng Todd PA-C [address] [place] [address] Assigned PCP 04/30/23 07/15/23 Radha Lomeli APRN HANDBAG OPERATOR [address] [place], [place] 5370[address] Assigned Heart and Vascular Provider 05/28/23 Jelena David OD [address] [facility] [place] [address] Ophthalmology 06/15/23 Pao Joseph, VJ Personal Advocate & Liaison (PAL) Nurse 08/01/23 11/07/23 Esha Grimm PA-C [address] [place] [address] Assigned PCP 07/16/23 Valery Veronica PA-C [address] [place] [address] 577125 Physician Meter Inspector Dermatology 09/19/23 Rey Tay MD [address] [place] [address] 849955 Gastroenterology 09/20/23 Rocky Zepeda DO [address] [place] [address] 498805 Physician Gastroenterology 09/20/23 Philip Dumont MD [address] [place] [address] 871105 Physician Ophthalmology 09/22/23 Meredith Carrera PA-C [address] [place] [address] Assigned Gastroenterology Provider 11/01/23 Neil Kent MD [address] [address] Dermatology 11/02/23 [place] [address] [place] [address] Neurological Surgery 12/26/23 Audrey Waite PA-C 500 [place] [address] Physician Meter Inspector Dermatology 02/28/24 Valery Veronica PA-C 736373 [place], [place] [address] Physician Meter Inspector Dermatology 04/10/24 Herminia Hatch MD [facility]5 [place] [address] Assigned Rheumatology Provider 07/02/24 documented as of this encounter
--- OUTSIDE RECORDS SUMMARY | 2024-08-28 19:05 | XMS_ITS | Encounter Summary ---
Author Organization [facility] Address [address] [place] [address] Care Team Providers Care Electrician Substation Supervisor Name Role Phone Lita Oseguera Unavailable Unavailable Marija Edgar APRN MECHANICAL APPLICATIONS ENGINEER Primary Care Provider + Marija Edgar APRN MECHANICAL APPLICATIONS ENGINEER Unavailable Mynor Broussard MD Unavailable [phone] Keisha Dotson MD Unavailable Galo Burrell MD Unavailable Unavailable Diana Desir [facility] Unavailable Rain Galaviz PA-C Unavailable Summer Lara MD Unavailable [phone] Tavia Wyatt MD Unavailable Johnny Murillo MD Unavailable Erica Farrell APRN MECHANICAL APPLICATIONS ENGINEER Unavailable Teresita Bean [facility] Unavailable Tavia Wyatt MD Unavailable Diana Desir [facility] Unavailable Rich Barrett MD Unavailable [phone] eNil Kent MD Unavailable Roney Story DPM Unavailable Erica Farrell HOSPITAL RECEIVING CLERK MECHANICAL APPLICATIONS ENGINEER Unavailable Thang Diana Stanislav [facility] Unavailable Jelena David OD Unavailable Galo Burrell MD Unavailable Unavailable Livan Sharif MD Unavailable + Livan Sharif MD Unavailable + Catherine Cm MD Unavailable + Valery Veronica PA-C Unavailable [phone] Catherine Cm MD Unavailable + Johnny Murillo MD Unavailable [phone] Brea Quinn HOSPITAL RECEIVING CLERK MECHANICAL APPLICATIONS ENGINEER Unavailable [phone] Brea Quinn HOSPITAL RECEIVING CLERK MECHANICAL APPLICATIONS ENGINEER Unavailable [phone] Jose Francisco Johnson MD Unavailable Livan Sharif MD Unavailable + IsCatherine hobbs MD Unavailable + Sydnie Martinez RN Unavailable Unavailable Alfonso Renteria MD Unavailable Esha Grimm-C Primary Care Provider Cheng Todd PA-C Unavailable Radha Lomeli HOSPITAL RECEIVING CLERK MECHANICAL APPLICATIONS ENGINEER Unavailable [phone] Jelena David OD Unavailable [phone] Pao Joseph RN Unavailable Unavailable Esha Grimm-C Unavailable [phone] JeremíasValery damon PA-C Unavailable [phone] Rey Tay MD Unavailable Rocky Zepeda DO Unavailable Philip Dumont MD Unavailable [phone] Meredith CarreraC Unavailable [phone] Neil Kent MD Unavailable Juan Pablo Emmanuel MD Unavailable Audrey WaiteC Unavailable [phone] Valery VeronicaC Unavailable [phone] Herminia Hatch MD Unavailable Encounter Details Date Type Department Care Team (Late st Contact Info) Description 09/24/2021 [facility] Medical Advice [facility] [address] [facility] [address] [place] [address] [facility] [address] [place] [address] Social History Tobacco Use Types Packs/Day [...] How often do you attend hinduism or moravian serv ices? Never 09/22/2021 Do [...] Answer Date Recorded PHQ-2 Score 2 09/22/2021 [facility] [place] [facility] - [...] in a assisted (including now)? No 09/22/2021 [place] Depression Scale [...] Office Visit [facility] Neurology Clinics [address], [address] [place] [address] [place] [address] [address] [place] [address] Johnny Penn MD [address] [place] [address] documented as of this [...] documented as of this encounter Care Teams Electrician Substation Supervisor Relationship Specialty Start Date End Date Marija Edgar APRN CNP PCP - General Nurse Practitioner 04/30/20 04/14/23 Esha Grimm PA-C [address] [place] [address] PCP - General Family Medicine 05/04/23 Ltia Oseguera Personal Advocate & Liaison (PAL) 02/28/20 03/27/23 Marija Edgar APRN MECHANICAL APPLICATIONS ENGINEER Assigned PCP 06/08/20 04/29/23 Mynor Broussard MD 6363 [facility] 500 [place] [address] Assigned Surgical Provider 06/01/20 11/28/21 Keisha Dotson MD 909 [place], [place] 8901[address] Assigned Neuroscience Provider 06/04/20 04/01/23 Galo Burrell MD Assigned Heart and Vascular Provider 10/05/20 04/02/[address] [facility] [address] [place] [address] Pharmacist Pharmacist 04/17/21 Rain Galaviz PA-C [address] [place] [address] [address] [place] [address] Physician Fuel Attendant Dermatology 04/28/21 Summer Lara MD [address] [place] [address] 016174 Assigned OBGYN Provider 05/31/21 2 Tavia Wyatt MD [address] [place] [address]36394 Dermatology 07/14/21 Johnny Murillo MD [facility] [address] [place] [address] Assigned Musculoskeletal Provider 08/30/21 03/17/22 Erica Farrell APRN MECHANICAL APPLICATIONS ENGINEER 6[address] [facility] [address] [place] [address] Nurse Practitioner Cardiovascular Disease 09/09/[address] [facility] [address] [place] [address] Pharmacist Pharmacist 09/24/21 09/29/21 Tavia Wyatt MD [address] [place] [address] Assigned Surgical Provider 11/29/21 05/07/[address] [facility] [address] [place] [address] Assigned MTM Pharmacist 01/02/22 Rich Barrett MD [address] [address] Physician Ophthalmology 01/21/22 Neil Kent MD 500 [place] [address] Dermatology 02/24/22 [place] [address] [facility] 300 [place] [address] Assigned Musculoskeletal Provider 03/20/22 08/13/22 Erica Farrell APRN MECHANICAL APPLICATIONS ENGINEER 1700 [place] [address] Assigned Heart and Vascular Provider 04/03/22 04/16/22 Diana Desir [facility] 3033 [place] [address] Assigned [place] Pharmacist 04/07/22 Jelena David OD [address] [facility] [place] [address] Assigned Surgical Provider 05/08/22 10/08/22 Galo Burrell MD Assigned Heart and Vascular Provider 04/17/22 06/11/22 Livan Sharif MD [address] [place] [address] Cardiovascular Disease 05/14/22 Livan Sharif MD [address] [place] 225695 Assigned Heart and Vascular Provider 06/12/22 07/23/22 Catherine Cm MD [address] [place] [address]45 Cardiovascular Disease 07/21/22 Valery Veronica PAUcheC 909 [place] [address] Physician Fuel Attendant Dermatology 07/21/22 Catherine Cm MD [address] [place] [address] Assigned Heart and Vascular Provider 07/24/22 11/05/22 Johnny Murillo MD [address] 102934 Assigned Musculoskeletal Provider 08/14/22 10/08/22 Brea Quinn APRN MECHANICAL APPLICATIONS ENGINEER [address] [place] [address] 671145 Nurse Practitioner Dermatology 09/21/22 Brea Quinn APRN MECHANICAL APPLICATIONS ENGINEER [facility]1 [facility] [place], [place] 329492 Assigned Surgical Provider 10/09/22 05/01/24 [place] [address] [address] Assigned Musculoskeletal Provider 10/09/22 05/01/24 Livan Sharif MD [address] [facility] [address] [place] [address] Assigned Heart and Vascular Provider 11/06/22 11/12/22 Catherine Cm MD [address] [facility] [address] [place] [address] Assigned Heart and Vascular Provider 11/13/22 05/27/23 Sydnie Martinez RN Personal Advocate & Liaison (PAL) Family Medicine 03/28/23 07/31/23 Alfonso Renteria MD 5775 [facility] 200 [place], [place] 371656 Assigned Neuroscience Provider 04/02/23 Cheng Todd PA-C [address] [place] [address] Assigned PCP 04/30/23 07/15/23 Radha Lomeli APRN MECHANICAL APPLICATIONS ENGINEER 6405 [facility] [address] [place] [address] Assigned Heart and Vascular Provider 05/28/23 Jelena David OD [address] [facility] [address] [place] [id number] Ophthalmology 06/15/23 Pao Joseph, RN Personal Advocate & Liaison (PAL) Nurse 08/01/23 11/07/23 Esha Grimm PA-C [address] [place] [address] Assigned PCP 07/16/23 Valery Veronica PA-C [address] [place] [address] 163625 Physician Fuel Attendant Dermatology 09/19/23 Rey Tay MD [address] [place] [address] 769105 MD Gastroenterology 09/20/23 Rocky Zepeda DO [address] [place] [address] [id number] Physician Gastroenterology 09/20/23 Philip Dumont MD [address] [place] [address] 906545 Physician Ophthalmology 09/22/23 Meredith Carrera PA-C 909 [place] [address] Assigned Gastroenterology Provider 11/01/23 Neil Kent MD [address] [address] MD Dermatology 11/02/23 [place] [address] 012557 Neurological Surgery 12/26/23 Audrey Waite PA-C 500 [place] [address] Physician Fuel Attendant Dermatology 02/28/24 Valery Veronica PA-C 131504 [address], [place] [address] Physician Fuel Attendant Dermatology 04/10/24 Herminia Hatch MD 1875 [place] [address] Assigned Rheumatology Provider 07/02/24 documented as of this encounter
--- OUTSIDE RECORDS SUMMARY | 2024-08-28 19:05 | XMS_ITS | Encounter Summary ---
Author Organization [place] Address [address] [place] [address] Care Team Providers Care Thermodynamic Physicist Name Role Phone Diana Desir [facility] Unavailable Rain Galaviz PA-C Unavailable [phone] Tavia Wyatt MD Unavailable Erica Farrell APRN STONE DRILLER HELPER Unavailable Rich Barrett MD Unavailable [phone] Neil Kent MD Unavailable Diana Desir [facility] Unavailable Livan Sharif MD Unavailable Catherine Cm MD Unavailable + Valery Veronica PA-C Unavailable [phone] Brea Quinn BEVERAGE INSPECTION MACHINE TENDER STONE DRILLER HELPER Unavailable [phone] Brea Quinn BEVERAGE INSPECTION MACHINE TENDER STONE DRILLER HELPER Unavailable Jose Francisco Johnson MD Unavailable Alfonso Renteria MD Unavailable [phone] Esha Grimm PA-C Primary Care Provider Radha Lomeli APRN STONE DRILLER HELPER Unavailable Jelena David OD Unavailable Esha Grimm PA-C Unavailable [phone] Valery Veronica PA-C Unavailable [phone] Rey Tay MD Unavailable Rocky Zepeda DO Unavailable Philip Dumont MD Unavailable [phone] Meredith Carrera PA-C Unavailable [phone] Neil Kent MD Unavailable Juan Pablo Emmanuel MD Unavailable [phone] Audrey Waite PA-C Unavailable [phone] Valery Veronica PA-C Unavailable [phone] Herminia Hatch MD Unavailable Encounter Details Date Type Department Care Team (Late st Contact Info) Description 02/28/[address] [facility] Medical Advice [facility] Gastroenterology Clinic [address] [place] [address] Rain Burnette, RN Social History [...] exercise at this level? 30 min 03/10/2023 [place] Depression Scale Answer Date Recorded [place] Depression Score 5 01/14/2021 Last EPDS Self [...] PM CDT Legal Sex Female 4:13 AM TAPE SEWING MACHINE OPERATOR Gender Identity Female 03/02/2021 5:45 PM CDT Sexual Orientation Straight 02/28/2020 12 :51 AM CDT documented as of this encounter Plan of Treatment Upcoming Encounters Date Type Department Care Team (Late st Contact Info) Description 10/23/2024 9:30 AM CDT Office Visit [facility] Neurology [address], [address] [place] [address] [place] [address] [place] 985647 Johnny Penn MD 2523 [facility] [place] 734355 documented as of this encounter Visit Diagnoses Not on filedocumented in this encounter Additional Health Concerns Infection Onset Date Last Indicated Resolved Time Rule Out COVID-19 04/09/2024 04/09/2024 04/10/2024 6:48 PM CDT Assessment Noted Time PHQ-9 Depression Total Score: 3 02/07/20 24 9:33 AM CDT documented as of this encounter Care Teams Thermodynamic Physicist Relationship Specialty Start Date End Date Esha Grimm PA-C [address] [place] [address] PCP - General Family Medicine 05/04/23 Diana Desir, [facility] [address] [place] [address] Pharmacist Pharmacist 04/17/21 Rain Galaviz PA-C [address] [place] [address] [address] [place] [address] Physician Security Door Installer Dermatology 04/28/21 Tavia Wyatt MD [address] [place] [address] [address] [place] [address] Dermatology 07/14/21 Erica Farrell APRN STONE DRILLER HELPER 6405 [facility] [address] [place] [address] Nurse Practitioner Cardiovascular Disease 09/09/21 Rich Barrett MD [address] [place] [address] Physician Ophthalmology 01/21/22 Neil Kent MD [address] [place] [address] Dermatology 02/24/22 Diana Desir, [facility] [address] [place] [address] Assigned MTM Pharmacist 04/07/22 Livan Sharif MD [address] [facility] [address] [place] [address] Cardiovascular Disease 05/14/22 Catherine Cm MD [address] [facility] [place] [address] Cardiovascular Disease 07/21/22 Valery Veronica, PA-C [address] [place] [address] Physician Security Door Installer Dermatology 07/21/22 Brea Quinn APRN STONE DRILLER HELPER [address] [place] [address] Nurse Practitioner Dermatology 09/21/22 Brea Quinn APRN STONE DRILLER HELPER [address] [place] [address] Assigned Surgical Provider 10/09/22 05/01/24 [place] [address] [address] Assigned Musculoskeletal Provider 10/09/22 05/01/24 Alfonso Renteria MD [address] [address] Assigned Neuroscience Provider 04/02/23 Radha Lomeli APRN STONE DRILLER HELPER [address] [place] [address] Assigned Heart and Vascular Provider 05/28/23 Jelena David OD [address] [facility] [place] [address] MD Ophthalmology 06/15/23 Esha Grimm PA-C [address] [place] [address] Assigned PCP 07/16/23 Valery Veronica PA-C [address] [place] [address] 946315 Physician Security Door Installer Dermatology 09/19/23 Rey Tay MD [address] [place] [address] 284765 MD Gastroenterology 09/20/23 Rocky Zepeda DO [address] [place] [address] 261505 Physician Gastroenterology 09/20/23 Philip Dumont MD [address] [place] [address] 534075 Physician Ophthalmology 09/22/23 Meredith Carrera PA-C [address] [place] [address] 638645 Assigned Gastroenterology Provider 11/01/23 Neil Kent MD [address] 796100 Dermatology 11/02/23 [place] [address] [address] Neurological Surgery 12/26/23 Audrey Waite PA-C 500 [place] [address] Physician Security Door Installer Dermatology 02/28/24 Valery Veronica PA-C [address] [place] [address] Physician Security Door Installer Dermatology 04/10/24 Herminia Hatch MD [facility]5 [place] [address] Assigned Rheumatology Provider 07/02/24 documented as of this encounter
--- OUTSIDE RECORDS SUMMARY | 2024-08-28 19:05 | XMS_ITS | Encounter Summary ---
Author Organization [place] Address [address] [place] [address] Care Team Providers Care Protection Chief Industrial Plant Name Role Phone Diana Desir [facility] Unavailable Rain Galaviz PA-C Unavailable Tavia Wyatt MD Unavailable Erica Farrell APRN MOLD CLOSER Unavailable Rich Barrett MD Unavailable [phone] Neil Kent MD Unavailable Diana Desir [facility] Unavailable Livan Sharif MD Unavailable Catherine Cm MD Unavailable + Valery Veronica PA-C Unavailable Brea Quinn SHAREBROKER MOLD CLOSER Unavailable Brea Quinn SHAREBROKER MOLD CLOSER Unavailable Jose Francisco Johnson MD Unavailable Alfonso Renteria MD Unavailable [phone] Esha Grimm PA-C Primary Care Provider Lomeli, Radha E SHAREBROKER MOLD CLOSER Unavailable [phone] Jelena David OD Unavailable Esha Grimm PA-C Unavailable [phone] Valery Veronica PA-C Unavailable [phone] Rey Tay MD Unavailable Rocky Zepeda DO Unavailable Philip Dumont MD Unavailable [phone] Meredith Carrera PA-C Unavailable Neil Kent MD Unavailable Juan Pablo Emmanuel MD Unavailable [phone] Audrey Waite PA-C Unavailable Valery Veronica PA-C Unavailable Herminia Hatch MD Unavailable Encounter Details Date Type Department Care Team (Late st Contact Info) Description 02/27/2024 [facility] Medical Advice [facility] Spine and Neurosurgery [address] [place] [address] Ebony Cid APRN MOLD CLOSER [address] [place] [address] Social History Tobacco Use Types [...] attend [facility] or [facility]? 1 to 4 [...] 1 02/07/2024 [facility] exercise at this level? 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 Gender Identity Female 03/02/2021 5:45 PM CDT Sexual Orientation Straight 02/28/2020 12 :51 AM CDT documented as of this encounter Plan of Treatment Upcoming Encounters Date Type Department Care Team (Late st Contact Info) Description 10/23/2024 9:30 AM CDT Office Visit [facility] Neurology Clinics [address], [address] [place] [address] [place] [address] [place] [address] Johnny Penn MD [address] [place] [address] documented as of this encounter Visit Diagnoses Not on filedocumented in this encounter Additional Health Concerns Infection Onset Date Last Indicated Resolved Time Rule Out COVID-19 04/09/2024 04/09/2024 04/10/2024 6:48 PM CDT Assessment Noted Time PHQ-9 Depression Total Score: 3 02/07/20 24 9:33 AM CDT documented as of this encounter Care Teams Protection Chief Industrial Plant Relationship Specialty Start Date End Date Esha Grimm PA-C [address] [place] [address] PCP - General Family Medicine 05/04/23 Diana Desir, [facility] [address] [place], [place] [address] Pharmacist Pharmacist 04/17/21 Rain Galaviz PA-C [address] [place] [address] [address] [place] [address] Physician Patternmaker Plastics Dermatology 04/28/21 Tavia Wyatt MD [address] [place] [address] [place] [address] [id number] Dermatology 07/14/21 Erica Farrell APRN MOLD CLOSER 6405 [facility] [address] [place], [place] 228895 Nurse Practitioner Cardiovascular Disease 09/09/21 Rich Barrett MD 516 [facility] 9A [place], [place] 509045 Physician Ophthalmology 01/21/22 Neil Kent MD 500 [place], [place] 697575 Dermatology 02/24/22 Diana Desir, [facility] 3033 [place] [address] Assigned MTM Pharmacist 04/07/22 Livan Sharif MD [address], [facility] [address] [place] 486105 Cardiovascular Disease 05/14/22 Catherine Cm MD [address] [facility] [address] [place] 641395 Cardiovascular Disease 07/21/22 Valery Veronica, PA-C [address] [place], [place] 178585 Physician Patternmaker Plastics Dermatology 07/21/22 Brea Quinn APRN MOLD CLOSER 500 [place], [place] 095505 Nurse Practitioner Dermatology 09/21/22 Brea Quinn APRN MOLD CLOSER [address] [place] [address] 090742 Assigned Surgical Provider 10/09/22 05/01/24 [place] [address] [place] [facility] [address] [place], [place] 163037 Assigned Musculoskeletal Provider 10/09/22 05/01/24 Alfonso Renteria MD [address] [facility] 200 [place], [place] 025356 Assigned Neuroscience Provider 04/02/23 Radha Lomeli APRN MOLD CLOSER 6405 [facility] [address] [place], [place] 993765 Assigned Heart and Vascular Provider 05/28/23 Jelena David OD 3305 [facility] [place] [address] MD Ophthalmology 06/15/23 Esha Grimm PA-C [address] [place] [address] Assigned PCP 07/16/23 Valery Veronica PA-C [address] [place] [address] 116145 Physician Patternmaker Plastics Dermatology 09/19/23 Rey Tay MD [address] [place] [address] 622605 Gastroenterology 09/20/23 Rocky Zepeda DO [address] [place] [address] 545875 Physician Gastroenterology 09/20/23 Philip Dumont MD [address] [place] [address] 612325 Physician Ophthalmology 09/22/23 Meredith Carrera PA-C [address] [place] [address] 278045 Assigned Gastroenterology Provider 11/01/23 Niel Kent MD [address] [address] Dermatology 11/02/23 [place] [address] [place] [address] [address] Neurological Surgery 12/26/23 Audrey Waite PAUcheC 500 [place] [address] Physician Patternmaker Plastics Dermatology 02/28/24 Valery Veronica PAUcheC [address] [place] [address] Physician Patternmaker Plastics Dermatology 04/10/24 Herminia Hatch MD [facility]5 [place], [place] 43621125 Assigned Rheumatology Provider 07/02/24 documented as of this encounter
--- OUTSIDE RECORDS SUMMARY | 2024-08-28 19:05 | XMS_ITS | Encounter Summary ---
Author Organization [place] Address [address] [place] [address] Care Team Providers Care Dispatcher Chief Coal Slurry Name Role Phone Diana Desir [facility] Unavailable Rain Galaviz PA-C Unavailable Tavia Wyatt MD Unavailable Erica Farrell APRN ACCESS ANALYST Unavailable Rich Barrett MD Unavailable [phone] Neil Kent MD Unavailable Diana Desir [facility] Unavailable [phone] Livan Sharif MD Unavailable Catherine Cm MD Unavailable + Valery Veronica PA-C Unavailable Brea Quinn STATE ATTORNEY ACCESS ANALYST Unavailable Brea Quinn STATE ATTORNEY ACCESS ANALYST Unavailable Jose Francisco Johnson MD Unavailable Alfonso Renteria MD Unavailable [phone] Esha Grimm PA-C Primary Care Provider Radha Lomeli APRN ACCESS ANALYST Unavailable Jelena David OD Unavailable Esha Grimm PA-C Unavailable [phone] Valery Veronica PA-C Unavailable [phone] Rey Tay MD Unavailable Rocky Zepdea DO Unavailable Philip Dumont MD Unavailable [phone] Meredith Carrera PA-C Unavailable [phone] Neil Kent MD Unavailable Juan Pablo Emmanuel MD Unavailable [phone] Audrey Waite PA-C Unavailable [phone] Valery Veronica PA-C Unavailable Herminia Hatch MD Unavailable Encounter Details Date Type Department Care Team (Late st Contact Info) Description 03/19/2024 [facility] Medical Advice [facility] Gastroenterology Clinic [address] [place] [address] [facility] Social History Tobacco [...] 1 02/07/2024 [facility] [...] exercise at this level? 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 Gender Identity Female 03/02/2021 5:45 PM CDT Sexual Orientation Straight 02/28/2020 12 :51 AM CDT documented as of this encounter Plan of Treatment Upcoming Encounters Date Type Department Care Team (Late st Contact Info) Description 10/23/2024 9:30 AM CDT Office Visit [facility] Neurology [address], [address] [place] [address] [place] [address] [address] [place] 381787 Johnny Penn MD 9681 [facility] [place] 626025 documented as of this encounter Visit Diagnoses Not on filedocumented in this encounter Additional Health Concerns Infection Onset Date Last Indicated Resolved Time Rule Out COVID-19 04/09/2024 04/09/2024 04/10/2024 6:48 PM CDT Assessment Noted Time PHQ-9 Depression Total Score: 3 02/07/20 24 9:33 AM CDT documented as of this encounter Care Teams Dispatcher Chief Coal Slurry Relationship Specialty Start Date End Date Esha Grimm PA-C [address] [place] [address] PCP - General Family Medicine 05/04/23 Diana Desir, [facility] [address] [place] [address] Pharmacist Pharmacist 04/17/21 Rain Galaviz PA-C [address] [place] [address] [address] [place] [address] Physician Casing Mixer Dermatology 04/28/21 Tavia Wyatt MD [address] [place] [address] [address] [place] [address] Dermatology 07/14/21 Erica Farrell APRN ACCESS ANALYST 6405 [facility] [address] [place] [address] Nurse Practitioner Cardiovascular Disease 09/09/21 Rich Barrett MD [address] [place] [address] Physician Ophthalmology 01/21/22 Neil Kent MD [address] [place] [address] Dermatology 02/24/22 Diana Desir, [facility] [address] [place] [address] Assigned MTM Pharmacist 04/07/22 Livan Sharif MD [address] [facility] [address] [place] [address] Cardiovascular Disease 05/14/22 Catherine Cm MD [address] [facility]00 [place] [address] Cardiovascular Disease 07/21/22 Valery Veronica, PA-C [address] [place] [address] Physician Casing Mixer Dermatology 07/21/22 Brea Quinn APRN ACCESS ANALYST [address] [place] [address] Nurse Practitioner Dermatology 09/21/22 Brea Quinn APRN ACCESS ANALYST [address] [place] [address] Assigned Surgical Provider 10/09/22 05/01/24 [place] [address] [address] Assigned Musculoskeletal Provider 10/09/22 05/01/24 Alfonso Renteria MD [address] [address] Assigned Neuroscience Provider 04/02/23 Radha Lomeli APRN ACCESS ANALYST [address] [place] [address] Assigned Heart and Vascular Provider 05/28/23 Jelena David OD [address] [place] [address] MD Ophthalmology 06/15/23 Esha Grimm PA-C [address] [place] [address] Assigned PCP 07/16/23 Valery Veronica PA-C [address] [place] [address] 387415 Physician Casing Mixer Dermatology 09/19/23 Rey Tay MD [address] [place] [address] 451675 MD Gastroenterology 09/20/23 Rocky Zepeda DO [address] [place] [address] 127905 Physician Gastroenterology 09/20/23 Philip Dumont MD [address] [place] [address] 655285 Physician Ophthalmology 09/22/23 Meredith Carrera PA-C [address] [place] [address] 486715 Assigned Gastroenterology Provider 11/01/23 Neil Kent MD [address] 156090 Dermatology 11/02/23 [place] [address] [address] Neurological Surgery 12/26/23 Audrey Waite PA-C 500 [place] [address] Physician Casing Mixer Dermatology 02/28/24 Valery Veronica PA-C [address] [place] [address] Physician Casing Mixer Dermatology 04/10/24 Herminia Hatch MD [facility]5 [place] [address] Assigned Rheumatology Provider 07/02/24 documented as of this encounter
--- OUTSIDE RECORDS SUMMARY | 2024-08-28 19:06 | XMS_ITS | Encounter Summary ---
Author Organization [place] Address [address] [place] [address] Care Team Providers Care Feather Cutting Machine Feeder Name Role Phone Diana Desir [facility] Unavailable Rain Galaviz PA-C Unavailable [phone] Tavia Wyatt MD Unavailable Erica Farrell APRN FINAL ASSEMBLY INSPECTOR Unavailable Rich Barrett MD Unavailable [phone] Neil Kent MD Unavailable Diana Desir [facility] Unavailable Livan Sharif MD Unavailable Catherine Cm MD Unavailable + Valery Veronica PA-C Unavailable Brea Quinn BUGGY MAN FINAL ASSEMBLY INSPECTOR Unavailable Brea Quinn BUGGY MAN FINAL ASSEMBLY INSPECTOR Unavailable Jose Francisco Johnson MD Unavailable Alfonso Renteria MD Unavailable [phone] Esha Grimm PA-C Primary Care Provider Lomeli, Radha E BUGGY MAN FINAL ASSEMBLY INSPECTOR Unavailable [phone] Jelena David OD Unavailable Esha Grimm PA-C Unavailable [phone] Valery Veronica PA-C Unavailable [phone] Rey Tay MD Unavailable Rocky Zepeda DO Unavailable Philip Dumont MD Unavailable [phone] Meredith Carrera PA-C Unavailable [phone] Neil Kent MD Unavailable Juan Pablo Emmanuel MD Unavailable [phone] Audrey Waite PA-C Unavailable [phone] Valery Veronica PA-C Unavailable Herminia Hatch MD Unavailable Encounter Details Date Type Department Care Team (Late st Contact Info) Description 11/15/2023 [facility] Medical Advice [address] [address] Vivian Grant Social History Tobacco [...] 0 10/25/2023 [facility] of Occupat ional [...] at this level? 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 Gender Identity Female 03/02/2021 5:45 PM CDT Sexual Orientation Straight 02/28/2020 12 :51 AM CDT documented as of this encounter Plan of Treatment Upcoming Encounters Date Type Department Care Team (Late st Contact Info) Description 10/23/2024 9:30 AM CDT Office Visit [facility] Neurology [address], [address] [place] [address] [place] [address] [address] Johnny Penn MD 9082 [facility] [place] [address] documented as of this encounter Visit Diagnoses Not on filedocumented in this encounter Additional Health Concerns Infection Onset Date Last Indicated Resolved Time Rule Out COVID-19 12/26/2023 12/26/2023 12/26/2023 9:50 AM CDT Rule Out COVID-19 04/09/2024 04/09/2024 04/10/2024 6:48 PM CDT Assessment Noted Time PHQ-9 Depression Total Score: 4 06/20/20 23 8:40 AM FRICTION PAINT MACHINE TENDER documented as of this encounter Care Teams Feather Cutting Machine Feeder Relationship Specialty Start Date End Date Esha Grimm PA-C [address] [place] [address] PCP - General Family Medicine 05/04/23 Diana Desir, [facility] [address] [place] [address] Pharmacist Pharmacist 04/17/21 Rain Galaviz PA-C [address] [place] [address] [address] [facility] [place] [address] Physician Bed Placement Coordinator Dermatology 04/28/21 Tavia Wyatt MD [address] [place] [address] [address] [place] [id number] Dermatology 07/14/21 Erica Farrell APRN FINAL ASSEMBLY INSPECTOR 6405 [facility] [address] [place], [place] 762975 Nurse Practitioner Cardiovascular Disease 09/09/21 Rich Barrett MD 516 [facility] 9A [place], [place] [address] Physician Ophthalmology 01/21/22 Neil Kent MD 500 [place], [place] 630735 Dermatology 02/24/22 Diana Desir, [facility] 3033 [place] [address] Assigned MTM Pharmacist 04/07/22 Livan Sharif MD [address] [facility], [facility] [address] [place] [address] Cardiovascular Disease 05/14/22 Catherine Cm MD [address] [facility] [address] [place], [place] 937875 Cardiovascular Disease 07/21/22 Valery Veronica, PA-C 909 [place] [address] Physician Bed Placement Coordinator Dermatology 07/21/22 Brea Quinn APRN FINAL ASSEMBLY INSPECTOR 500 [place] [address] Nurse Practitioner Dermatology 09/21/22 Brea Quinn APRN FINAL ASSEMBLY INSPECTOR [address] [place] [address] Assigned Surgical Provider 10/09/22 05/01/24 [place] [address] [address] [facility] 300 [place] [address] Assigned Musculoskeletal Provider 10/09/22 05/01/24 Alfonso Renteria MD [address] [facility] 200 [place] [address] Assigned Neuroscience Provider 04/02/23 Radha Lomeli APRN FINAL ASSEMBLY INSPECTOR [address] [place], [place] 934245 Assigned Heart and Vascular Provider 05/28/23 Frankie Jelena TempletonSONJA woods [address] [facility] [place] [address] MD Ophthalmology 06/15/23 Esha Grimm PA-C [address] [place] [address] Assigned PCP 07/16/23 Valery Veronica PA-C [address] [place] [address] 327715 Physician Bed Placement Coordinator Dermatology 09/19/23 Rey Tay MD [address] [place] [address] 266725 Gastroenterology 09/20/23 Rocky Zepeda DO [address] [place] [address] 028165 Physician Gastroenterology 09/20/23 Philip Dumont MD [address] [place] [address] 495675 Physician Ophthalmology 09/22/23 Meredith Carrera PA-C [address] [place] [address] 999825 Assigned Gastroenterology Provider 11/01/23 Neil Kent MD [address] 744810 Dermatology 11/02/23 [place] [address] 850327 Neurological Surgery 12/26/23 Audrey Waite PA-C 500 [place] [address] Physician Bed Placement Coordinator Dermatology 02/28/24 Valery Veronica PA-C [address] [place] [address] Physician Bed Placement Coordinator Dermatology 04/10/24 Herminia Hatch MD [facility]5 [place], [place] 65762125 Assigned Rheumatology Provider 07/02/24 documented as of this encounter
--- OUTSIDE RECORDS SUMMARY | 2024-08-28 19:06 | XMS_ITS | Encounter Summary ---
Author Organization [facility] Address [address] [place] [address] Care Team Providers Care [employer] Director Name Role Phone Diana Desir [facility] Unavailable Rain Galaviz PA-C Unavailable Tavia Wyatt MD Unavailable Erica Farrell APRN SCREW MACHINE OPERATOR SWISS TYPE Unavailable Rich Barrett MD Unavailable [phone] Neli Kent MD Unavailable Diana Desir [facility] Unavailable [phone] Livan Sharif MD Unavailable Catherine Cm MD Unavailable + Valery Veronica PA-C Unavailable Brea Quinn MANAGER SCHOOL SCREW MACHINE OPERATOR SWISS TYPE Unavailable Brea Quinn MANAGER SCHOOL SCREW MACHINE OPERATOR SWISS TYPE Unavailable Jose Francisco Johnson MD Unavailable Alfonso Renteria MD Unavailable [phone] Esha Grimm PA-C Primary Care Provider [phone] Radha Lomeli APRN SCREW MACHINE OPERATOR SWISS TYPE Unavailable Jelena David OD Unavailable Pao Joseph RN Unavailable Unavailable Esha Grimm PA-C Unavailable [phone] Valery Veronica PA-C Unavailable [phone] Rey Tay MD Unavailable Rocky Zepeda DO Unavailable Philip Dumont MD Unavailable [phone] Meredith Carrera PA-C Unavailable [phone] Neil Kent MD Unavailable Juan Pablo Emmanuel MD Unavailable [phone] Audrey Waite PA-C Unavailable [phone] Valery Veronica PA-C Unavailable Herminia Hatch MD Unavailable Encounter Details Date Type Department Care Team (Late st Contact Info) Description 10/26/2023 [facility] Medical Advice [facility] [address] [address] [place] Social History Tobacco [...] week 03/10/2023 How often do you attend [facility] or jainism services? 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 Gender Identity Female 03/02/2021 5:45 PM CDT Sexual Orientation Straight 02/28/2020 12 :51 AM CDT documented as of this encounter Plan of Treatment Upcoming Encounters Date Type Department Care Team (Late st Contact Info) Description 10/23/2024 9:30 AM CDT Office Visit [facility] Neurology [address], [address] [place] [address] [place] [address] [place] [id number] Johnny Penn MD [address] [place] [address] documented as of this encounter Visit Diagnoses Not on filedocumented in this encounter Additional Health Concerns Infection Onset Date Last Indicated Resolved Time Rule Out COVID-19 12/26/2023 12/26/2023 12/26/2023 9:50 AM CDT Rule Out COVID-19 04/09/2024 04/09/2024 04/10/2024 6:48 PM CDT Assessment Noted Time PHQ-9 Depression Total Score: 4 06/20/20 23 8:40 AM METAL SHAPING MACHINE OPERATOR documented as of this encounter Care Teams [employer] Director Relationship Specialty Start Date End Date Esha Grimm PA-C [address] [place] [address] PCP - General Family Medicine 05/04/23 Diana Desir, [facility] [address] [place], [place] 663[address] Pharmacist Pharmacist 04/17/21 Rain Galaviz PA-C [address] [place] [address] [address] [place] [address] Physician Nutritional Services Director Dermatology 04/28/21 Tavia Wyatt MD [address] [place] [address] [address] [place] [address] [id number] Dermatology 07/14/21 Erica Farrell APRN SCREW MACHINE OPERATOR SWISS TYPE [address] [facility] [address] [place], [place] 937495 Nurse Practitioner Cardiovascular Disease 09/09/21 Rich Barrett MD 516 [facility] 9A [place], [place] 038395 Physician Ophthalmology 01/21/22 Neil Kent MD 500 [place], [place] 002365 Dermatology 02/24/22 Diana Desir, [facility] 3033 [place] [address] Assigned MTM Pharmacist 04/07/22 Livan Sharif MD [address], [facility] [address] [place] 110705 Cardiovascular Disease 05/14/22 Catherine Cm MD [address] [facility] [address] [place] 132885 Cardiovascular Disease 07/21/22 Valery Veronica, PA-C 909 [place], [place] 131825 Physician Nutritional Services Director Dermatology 07/21/22 rBea Quinn APRN SCREW MACHINE OPERATOR SWISS TYPE 500 [place], [place] 376365 Nurse Practitioner Dermatology 09/21/22 Brea Quinn APRN SCREW MACHINE OPERATOR SWISS TYPE [address] [place] [address] 741542 Assigned Surgical Provider 10/09/22 05/01/24 [place] [address] [place] [facility] 300 [place], [place] 504197 Assigned Musculoskeletal Provider 10/09/22 05/01/24 Alfonso Renteria MD [address] [facility] 200 [place], [place] 912456 Assigned Neuroscience Provider 04/02/23 Radha Lomeli APRN SCREW MACHINE OPERATOR SWISS TYPE 6[address] [facility] [place] [address] [place] [address] Assigned Heart and Vascular Provider 05/28/23 Jelena David OD [address] [facility] [place] [address] MD Ophthalmology 06/15/23 Pao Joseph, VJ Personal Advocate & Liaison (PAL) Nurse 08/01/23 11/07/23 Esha Grimm PA-C [address] [place] [phone] Assigned PCP 07/16/23 Valery Veronica PA-C [address] [place] [address] 573535 Physician Nutritional Services Director Dermatology 09/19/23 Rey Tay MD [address] [place] [address] 024245 Gastroenterology 09/20/23 Rocky Zepeda DO [address] [place] [address] 700985 Physician Gastroenterology 09/20/23 Philip Dumont MD [address] [place] [address] 212835 Physician Ophthalmology 09/22/23 Meredith Carrera PA-C [address] [place] [address] 242365 Assigned Gastroenterology Provider 11/01/23 Neil Kent MD [address] [place] [address] Dermatology 11/02/23 [place] [address] [place] [address] 901887 Neurological Surgery 12/26/23 Audrey Waite PA-C 500 [place] [address] Physician Nutritional Services Director Dermatology 02/28/24 Valery Veronica PA-C 832088 [address] [address] Physician Nutritional Services Director Dermatology 04/10/24 Herminia Hatch MD [facility]5 [place] [address] Assigned Rheumatology Provider 07/02/24 documented as of this encounter
--- OUTSIDE RECORDS SUMMARY | 2024-08-28 19:06 | XMS_ITS | Encounter Summary ---
Author Organization [facility] Address [address] [place] [address] Care Team Providers Care Acid Maker Name Role Phone Diana Desir [facility] Unavailable Rain Galaviz PA-C Unavailable Tavia Wyatt MD Unavailable Erica Farrell APRN DIGITAL SALES EXECUTIVE Unavailable Rich Barrett MD Unavailable [phone] Neil Kent MD Unavailable Diana Desir [facility] Unavailable Livan Sharif MD Unavailable Catherine Cm MD Unavailable + Valery Veronica PA-C Unavailable Brea Quinn FLOOR MANAGER DIGITAL SALES EXECUTIVE Unavailable Brea Quinn FLOOR MANAGER DIGITAL SALES EXECUTIVE Unavailable Jose Francisco Johnson MD Unavailable Alfonso Renteria MD Unavailable [phone] Esha Grimm PA-C Primary Care Provider Radha Lomeli APRN DIGITAL SALES EXECUTIVE Unavailable Jelena David OD Unavailable [phone] Esha Grimm PA-C Unavailable [phone] Valery Veronica PA-C Unavailable [phone] Rey Tay MD Unavailable Rocky Zepeda DO Unavailable Philip Dumont MD Unavailable [phone] Meredith Carrera PA-C Unavailable [phone] Neil Kent MD Unavailable Juan Pablo Emmanuel MD Unavailable [phone] Audrey Waite PA-C Unavailable [phone] Valery Veronica PA-C Unavailable [phone] Herminia Hatch MD Unavailable Encounter Details Date Type Department Care Team (Late st Contact Info) Description 11/16/2023 [facility] Medical [facility] [address] [address] Asiya Reddy, RN Social History [...] Score 0 10/25/2023 [facility] - Occupational Stress Questionnaire Answer [...] exercise at this level? 30 min 03/10/2023 [place] Depression Scale Answer Date Recorded [place] Depression Score 5 01/14/2021 Last EPDS [...] PM CDT Legal Sex Female 4:13 AM LPN INSTRUCTOR Gender Identity Female 03/02/2021 5:45 PM CDT Sexual Orientation Straight 02/28/2020 12 :51 AM CDT documented as of this encounter Plan of Treatment Upcoming Encounters Date Type Department Care Team (Late st Contact Info) Description 10/23/2024 9:30 AM CDT Office Visit [facility] Neurology [address], [address] [place] [address] [place] [address] [place] [place] [address] Johnny Penn MD [address] [place] [address] documented as of this encounter Visit Diagnoses Not on filedocumented in this encounter Additional Health Concerns Infection Onset Date Last Indicated Resolved Time Rule Out COVID-19 12/26/2023 12/26/2023 12/26/2023 9:50 AM CDT Rule Out COVID-04/09/2024 04/09/2024 04/10/2024 6:48 PM CDT Assessment Noted Time PHQ-9 Depression Total Score: 4 06/20/20 23 8:40 AM LPN INSTRUCTOR documented as of this encounter Care Teams Acid Maker Relationship Specialty Start Date End Date Esha Grimm PA-C [address] [place] [address] PCP - General Family Medicine 05/04/23 Diana Desir, [facility] [address] [place] [address] Pharmacist Pharmacist 04/17/21 Rain Galaviz PA-C [address] [place] [address] [address] [place] [address] Physician Meter Attendant Dermatology 04/28/21 Tavia Wyatt MD [address] [place] [address] [address] [place] [facility] [place] [address] Dermatology 07/14/21 Erica Farrell APRN DIGITAL SALES EXECUTIVE 6405 [facility] [address] [place] [address] Nurse Practitioner Cardiovascular Disease 09/09/21 Rich Barrett MD 516 [facility] 9A [place], [place] 9[address]85 Physician Ophthalmology 01/21/22 Neil Kent MD [address] [place] [address] 350865 Dermatology 02/24/22 [facility] 3033 [place] [address] Assigned MTM Pharmacist 04/07/22 Livan Sharif MD [address], [facility] [address] [place] [address] Cardiovascular Disease 05/14/22 Catherine Cm MD [address] [facility] [address] [place], [place] 309815 Cardiovascular Disease 07/21/22 Valery Veronica, PA-C 909 [place], [place] 655795 Physician Meter Attendant Dermatology 07/21/22 Brea Quinn APRN DIGITAL SALES EXECUTIVE 500 [place], [place] 851665 Nurse Practitioner Dermatology 09/21/22 Brea Quinn APRN DIGITAL SALES EXECUTIVE 6401 [place] [address] Assigned Surgical Provider 10/09/22 05/01/24 [place] [address] [place] [facility] 300 [place] [address] Assigned Musculoskeletal Provider 10/09/22 05/01/24 Alfonso Renteria MD [address] [facility] 200 [place], [place] 9[address]606 Assigned Neuroscience Provider 04/02/23 Radha Lomeli, FLOOR MANAGER DIGITAL SALES EXECUTIVE [address] [place], [place] 14[address]85 Assigned Heart and Vascular Provider 05/28/23 Jelena David OD [address] [facility] [place] [address] MD Ophthalmology 06/15/23 Esha Grimm PA-C [address] [place] [phone] Assigned PCP 07/16/23 Valery Veronica PA-C [address] [place] [address] 115825 Physician Meter Attendant Dermatology 09/19/23 Rey Tay MD [address] [place] [address] 100445 Gastroenterology 09/20/23 Rocky Zepeda DO [address] [place] [address] 196255 Physician Gastroenterology 09/20/23 Philip Dumont MD [address] [place] [address] 328855 Physician Ophthalmology 09/22/23 Meredith Carrera PA-C [address] [place] [address] 553945 Assigned Gastroenterology Provider 11/01/23 Neil Kent MD [address] 423[address] Dermatology 11/02/23 [place] [address] [place] [address] [address] Neurological Surgery 12/26/23 Audrey Waite PA-C 500 [place] [address] Physician Meter Attendant Dermatology 02/28/24 Valery Veronica PA-C [address] [place] [address] Physician Meter Attendant Dermatology 04/10/24 Herminia Hatch MD [facility]5 [place], [place] 46492125 Assigned Rheumatology Provider 07/02/24 documented as of this encounter
--- OUTSIDE RECORDS SUMMARY | 2024-08-28 19:06 | XMS_ITS | Encounter Summary ---
Author Organization [facility] Address [address] [place] [address] Care Team Providers Care Heater Furnace Name Role Phone Diana Desir [facility] Unavailable Rain Galaviz PA-C Unavailable Tavia Wyatt MD Unavailable Erica Farrell APRN PRINTING PRESS MACHINIST Unavailable Rich Barrett MD Unavailable [phone] Neil Kent MD Unavailable Diana Desir [facility] Unavailable [phone] Livan Sharif MD Unavailable Catherine Cm MD Unavailable + Valery Veronica PA-C Unavailable Brea Quinn EDUCATIONAL PROGRAM DIRECTOR PRINTING PRESS MACHINIST Unavailable Brea Quinn EDUCATIONAL PROGRAM DIRECTOR PRINTING PRESS MACHINIST Unavailable Jose Francisco Johnson MD Unavailable Alfonso Renteria MD Unavailable [phone] Esha Grimm PA-C Primary Care Provider [phone] Radha Lomeli APRN PRINTING PRESS MACHINIST Unavailable Jelena David OD Unavailable Pao Joseph RN Unavailable Unavailable Esha Grimm PA-C Unavailable [phone] Valery Veronica PA-C Unavailable [phone] Rey Tay MD Unavailable Rocky Zepeda DO Unavailable Philip Dumont MD Unavailable [phone] Meredith Carrera PA-C Unavailable [phone] Neil Kent MD Unavailable Juan Pablo Emmanuel MD Unavailable [phone] Audrey Waite PA-C Unavailable [phone] Valery Veronica PA-C Unavailable Herminia Hathc MD Unavailable Encounter Details Date Type Department Care Team (Late st Contact Info) Description 10/25/2023 [facility] Medical Advice [facility] Gastroenterology Clinic [address] [address] [place] Social History [...] you attend [facility] or anglican services? 1 to 4 [...] Answer Date Recorded PHQ-2 Score 0 10/25/2023 [facility] [...] exercise at this level? 30 min 03/10/2023 [place] Depression Scale Answer Date Recorded [place] [...] CDT Legal Sex Female 4:13 AM SUPERVISOR FERTILIZER PROCESSING Gender Identity Female 03/02/2021 5:45 PM CDT Sexual Orientation Straight 02/28/2020 12 :51 AM CDT documented as of this encounter Plan of Treatment Upcoming Encounters Date Type Department Care Team (Late st Contact Info) Description 10/23/2024 9:30 AM CDT Office Visit [facility] Neurology [address], [address] [place] [address] [place] [address] [address] [place] 912827 Johnny Penn MD [address] [place] [address] documented as of this encounter Visit Diagnoses Not on filedocumented in this encounter Additional Health Concerns Infection Onset Date Last Indicated Resolved Time Rule Out COVID-19 12/26/2023 12/26/2023 12/26/2023 9:50 AM CDT Rule Out COVID-19 04/09/2024 04/09/2024 04/10/2024 6:48 PM CDT Assessment Noted Time PHQ-9 Depression Total Score: 4 06/20/20 23 8:40 AM SUPERVISOR FERTILIZER PROCESSING documented as of this encounter Care Teams Heater Furnace Relationship Specialty Start Date End Date Esha Grimm PA-C [address] [place] [address] PCP - General Family Medicine 05/04/23 Diana Desir, [facility] [address] [place], [place] 8900[address] Pharmacist Pharmacist 04/17/21 Rain Galaviz PA-C [address] [place] [address] [address] [place] [address] Physician Clinical Nurse Occupational Medicine Dermatology 04/28/21 Tavia Wyatt MD [address] [place] [address] [address] [place] [address] [id number] Dermatology 07/14/21 Erica Farrell APRN PRINTING PRESS MACHINIST 6405 [facility] [address] [place], [place] 708925 Nurse Practitioner Cardiovascular Disease 09/09/21 Rich Barrett MD 516 [facility] 9A [place], [place] 9[address]65 Physician Ophthalmology 01/21/22 Neil Kent MD 500 [place], [place] 046755 Dermatology 02/24/22 Diana Desir, [facility] 3033 [place] [address] Assigned MTM Pharmacist 04/07/22 Livan Sharif MD [address], [facility] [address] [place] [address]15 Cardiovascular Disease 05/14/22 Catherine Cm MD [address] [facility] [address] [place] 626425 Cardiovascular Disease 07/21/22 Valery Veronica, PA-C 909 [place], [place] 643475 Physician Clinical Nurse Occupational Medicine Dermatology 07/21/22 Brea Quinn APRN PRINTING PRESS MACHINIST 500 [place], [place] 960665 Nurse Practitioner Dermatology 09/21/22 Brea Quinn APRN PRINTING PRESS MACHINIST [address] [place] [address] 024862 Assigned Surgical Provider 10/09/22 05/01/24 [place] [address] [address] [facility] 300 [place], [place] 110467 Assigned Musculoskeletal Provider 10/09/22 05/01/24 Alfonso Renteria MD [address] [facility] 200 [place], [place] 753416 Assigned Neuroscience Provider 04/02/23 Radha Lomeli APRN PRINTING PRESS MACHINIST 6[address] [facility] [address] [place] [address] Assigned Heart and Vascular Provider 05/28/23 Jelena David OD [address] [facility] [place] [address] MD Ophthalmology 06/15/23 Pao Joseph, VJ Personal Advocate & Liaison (PAL) Nurse 08/01/23 11/07/23 Esha Grimm PA-C [address] [place] [phone] Assigned PCP 07/16/23 Valery Veronica PA-C [address] [place] [address] 003435 Physician Clinical Nurse Occupational Medicine Dermatology 09/19/23 Rey Tay MD [address] [place] [address] 912185 Gastroenterology 09/20/23 Rocky Zepeda DO [address] [place] [address] 958785 Physician Gastroenterology 09/20/23 Philip Dumont MD [address] [place] [address] 663385 Physician Ophthalmology 09/22/23 Meredith Carrera PA-C [address] [place] [address] 238995 Assigned Gastroenterology Provider 11/01/23 Neil Kent MD [address] [place] [address] Dermatology 11/02/23 [place] [address] 293927 Neurological Surgery 12/26/23 Audrey Waite PA-C 500 [place] [address] Physician Clinical Nurse Occupational Medicine Dermatology 02/28/24 Valery Veronica PA-C 022823 [address], [place] [address] Physician Clinical Nurse Occupational Medicine Dermatology 04/10/24 Herminia Hatch MD [facility]5 [place] [address] Assigned Rheumatology Provider 07/02/24 documented as of this encounter
--- OUTSIDE RECORDS SUMMARY | 2024-08-28 19:06 | XMS_ITS | Encounter Summary ---
Author Organization [place] Address [address] [place] [address] 13588 Care Team Providers Care Rewind Operator Name Role Phone Diana Desir [facility] Unavailable Rain Galaviz PA-C Unavailable Tavia Wyatt MD Unavailable Erica Farrell APRN FLAT KNITTER Unavailable Rich Barrett MD Unavailable [phone] Neil Kent MD Unavailable Diana Desir [facility] Unavailable Livan Sharif MD Unavailable Catherine Cm MD Unavailable + Valery Veronica PA-C Unavailable Brea Quinn WET MILLING WHEEL OPERATOR FLAT KNITTER Unavailable Brea Quinn WET MILLING WHEEL OPERATOR FLAT KNITTER Unavailable Jose Francisco Johnson MD Unavailable Alfonso Renteria MD Unavailable [phone] Esha Grimm PA-C Primary Care Provider [phone] Lomeli, Radha E WET MILLING WHEEL OPERATOR FLAT KNITTER Unavailable [phone] Jelena David OD Unavailable Esha Grimm PA-C Unavailable Valery Veronica PA-C Unavailable Rey Tay MD Unavailable Rocky Zepeda DO Unavailable Philip Dumont MD Unavailable Meredith Carrera PA-C Unavailable Neil Kent MD Unavailable Juan Pablo Emmanuel MD Unavailable Audrey Waite PA-C Unavailable [phone] Valery Veronica PA-C Unavailable [phone] Herminia Hatch MD Unavailable Reason for Visit * Reason Onset Date Comments Appointment 12/02/2023 Clarification Encounter Details Date Type Department Care Team (Late st Contact Info) Description 12/02/2023 Telephone [facility] [address] [facility] [address] [place] [address] Radha Lomeli, WET MILLING WHEEL OPERATOR FLAT KNITTER [address] [facility] [address] [place] [address] Appointment (Clarification) Social History Tobacco [...] 0 10/25/2023 [place] Occupat ional [facility] - Occupational Stress Questionnaire Answer [...] exercise at this level? 30 min 03/10/2023 [place] Depression Scale Answer Date Recorded [place] Depression Score 5 01/14/2021 Last EPDS Self [...] CDT Legal Sex Female 4:13 AM SPECIAL MACHINE STITCHER Gender Identity Female 03/02/2021 5:45 PM CDT Sexual Orientation Straight 02/28/2020 12 :51 AM CDT documented as of this encounter Miscellaneous Notes * Telephone Encounter - Carley Myles RN - 12/02/2023 10:22 AM CDT Discussed with patient and reviewed questions. Questions pertaining to OV's scheduled. Carley ZABALA [facility] * Telephone Encounter - Janett Fragoso - 12/02/2023 8:56 AM CDT [facility] Call Center Phone Message May a [...] AM CDT Office Visit [facility] [address] [facility], [address] [place] [address] [place] [address] [place] [address] Johnny Penn MD [address] [place] [address] documented as of this encounter Visit Diagnoses Not on filedocumented in this encounter Additional Health Concerns Infection Onset Date Last Indicated Resolved Time Rule Out COVID-19 12/26/2023 12/26/2023 12/26/2023 9:50 AM CDT Rule Out COVID-19 04/09/2024 04/09/2024 04/10/2024 6:48 PM CDT Assessment Noted Time PHQ-9 Depression Total Score: 4 06/20/20 23 8:40 AM SPECIAL MACHINE STITCHER documented as of this encounter Care Teams Rewind Operator Relationship Specialty Start Date End Date Esha Grimm PA-C [address] [place] [address] PCP - General Family Medicine 05/04/23 Diana Desir [facility] [address] [place] [address] Pharmacist Pharmacist 04/17/21 Rain Galaviz PA-C [address] [place] [address] [address] [place] [address] Physician Collet Making Machine Operator Dermatology 04/28/21 Tavia Wyatt MD [address] [place] [address] [address] [place] [address] Dermatology 07/14/21 Erica Farrell APRN FLAT KNITTER [address] [place], [place] 8438[address] Nurse Practitioner Cardiovascular Disease 09/09/21 Rich Barrett MD [address] [place] [address] 670505 Physician Ophthalmology 01/21/22 Neil Kent MD [address] [place] [address] 053615 Dermatology 02/24/22 [facility] [address] [place] [address] 482526 Assigned [place] Pharmacist 04/07/22 Livan Sharif MD [address] [facility] [place] [address] Cardiovascular Disease 05/14/22 Catherine Cm MD [address] [place] [address] [place] 490[address] Cardiovascular Disease 07/21/22 Valery Veronica, PA-C [address] [place] [address] 675435 Physician Collet Making Machine Operator Dermatology 07/21/22 rBea Quinn APRN FLAT KNITTER 500 [place], [place] 829675 Nurse Practitioner Dermatology 09/21/22 Brea Quinn APRN FLAT KNITTER 6401 [place] [address] Assigned Surgical Provider 10/09/22 05/01/24 [place] [address] [address] Assigned Musculoskeletal Provider 10/09/22 05/01/24 Alfonso Renteria MD [address] 022906 Assigned Neuroscience Provider 04/02/23 Radha Lomeli APRN FLAT KNITTER [address] [place] [address] Assigned Heart and Vascular Provider 05/28/23 Jelena David OD [address] [facility] [place] [address] Ophthalmology 06/15/23 Esha Grimm PA-C [address] [place] [phone] Assigned PCP 07/16/23 Valery Veronica PA-C 9 [place], [place] 837455 Physician Collet Making Machine Operator Dermatology 09/19/23 Rey Tay MD 909 [place], [place] 880345 MD Gastroenterology 09/20/23 Rocky Zepeda DO 500 [place] [address] Physician Gastroenterology 09/20/23 Philip Dumont MD 516 [place] [address] Physician Ophthalmology 09/22/23 Meredith Carrera PA-C 9 [place] [address] Assigned Gastroenterology Provider 11/01/23 Neil Kent MD [address] [place] [address] 451380 Dermatology 11/02/23 [place] [address] [address] [place] [facility] [address] [place], [place] 724[address] Neurological Surgery 12/26/23 Audrey Waite PA-C 500 [place] [address] Physician Collet Making Machine Operator Dermatology 02/28/24 Valery Veronica PA-C [address] [place] [address] Physician Collet Making Machine Operator Dermatology 04/10/24 Herminia Hatch MD [address] [place] [address] Assigned Rheumatology Provider 07/02/24 documented as of this encounter
--- OUTSIDE RECORDS SUMMARY | 2024-08-28 19:06 | XMS_ITS | Encounter Summary ---
Author Organization [place] Address [address] [place] [address] Care Team Providers Care Production Team Leader Name Role Phone Lita Oseguera Unavailable Unavailable Marija Edgar APRN CAFETERIA ATTENDANT Primary Care Provider + Marija Edgar APRN CAFETERIA ATTENDANT Unavailable [phone] Keisha Dotson MD Unavailable [phone] Diana Desir [facility] Unavailable Rain Galaviz PA-C Unavailable [phone] Tavia Wyatt MD Unavailable Erica Farrell APRN CAFETERIA ATTENDANT Unavailable Rich Barrett MD Unavailable [phone] Neil Kent MD Unavailable Diana Desir [facility] Unavailable Livan Sharif MD Unavailable Catherine Cm MD Unavailable + Valery Veronica PA-C Unavailable [phone] Brea Quinn MAIL RIDER CAFETERIA ATTENDANT Unavailable Brea Quinn MAIL RIDER CAFETERIA ATTENDANT Unavailable [phone] Jose Francisco Johnson MD Unavailable Catherine Cm MD Unavailable + Sydnie Martinez RN Unavailable Unavailable Alfonso Renteria MD Unavailable [phone] Esha Grimm PA-C Primary Care Provider [phone] Cheng Todd PA-C Unavailable Radha oLmeli APRN CAFETERIA ATTENDANT Unavailable Jelena David OD Unavailable [phone] Pao Joseph RN Unavailable Unavailable Esha Grimm [...] Team (Late st Contact Info) Description 01/10/2023 [facility] Medical Advice [facility] [address] [place] [address] Lauren Claudio PA-C [address] [place] [address] Social History Tobacco Use Types [...] often do you attend hoahaoism or yarsanism serv ices? Never 09/22/2021 Do [...] Answer Date Recorded PHQ-2 Score 1 10/11/2022 [place] [facility]at [facility] - Occupational Stress [...] in a snf (including now)? 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: Rosalva Marietta [facility] referral following up on [facility] information that is needed to be faxed at [phone] Erica David MA documented in this encounter Plan of Treatment Upcoming Encounters Date Type Department Care Team (Late st Contact Info) Description 10/23/2024 9:30 AM CDT Office Visit [facility] Neurology Clinics - [address], [address] [place] [address] [place] [address] [place] [address] Johnny Penn MD [address] [facility] [address] [place] [address] documented as of [...] as of this encounter Care Teams Production Team Leader Relationship Specialty Start Date End Date Marija Edgar APRN CAFETERIA ATTENDANT PCP - General Nurse Practitioner 04/30/20 04/14/23 Esha Grimm PA-C [address] [place] [phone] PCP - General Family Medicine 05/04/23 Lita Oseguera Personal Advocate & Liaison (PAL) 02/28/20 03/27/23 Marija Edgar APRN CAFETERIA ATTENDANT Assigned PCP 06/08/20 04/29/23 Keisha Dotson MD 909 [place], [place] 218315 Assigned Neuroscience Provider 06/04/20 04/01/23 Diana Desir [facility] 3033 [place], [place] 518286 Pharmacist Pharmacist 04/17/21 Rain Galaviz PA-C [address] [place] [address] [place] [address] Physician Outsole Compressor Dermatology 04/28/21 Tavia Wyatt MD [address] [place] [address] [address] [place] [address] Dermatology 07/14/21 Erica Farrell APRN CAFETERIA ATTENDANT [address] [place], [place] 192245 Nurse Practitioner Cardiovascular Disease 09/09/21 Rich Barrett MD [address] [place] [address] 696175 Physician Ophthalmology 01/21/22 Neil Kent MD [address] [place] [address] 308465 Dermatology 02/24/22 [facility] [address] [place] [address] 564246 Assigned [place] Pharmacist 04/07/22 Livan Sharif MD [address] 00 [place] [address] Cardiovascular Disease 05/14/22 Catherine Cm MD [address] [place] [address] [place] 65[address]75 Cardiovascular Disease 07/21/22 Valery Veronica, PA-C [address] [place] [address] 481085 Physician Outsole Compressor Dermatology 07/21/22 Brea Quinn APRN CAFETERIA ATTENDANT 500 [place] [address] Nurse Practitioner Dermatology 09/21/22 Brea Quinn APRN CAFETERIA ATTENDANT [address] [facility] [address] Assigned Surgical Provider 10/09/22 05/01/24 [place] [address] [address] [facility] 300 [place] [address] Assigned Musculoskeletal Provider 10/09/22 05/01/24 Catherine Cm MD [address] [facility] [address] [place] [address] Assigned Heart and Vascular Provider 11/13/22 05/27/23 Sydnie Martinez RN Personal Advocate & Liaison (PAL) Family Medicine 03/28/23 07/31/23 Alfonso Renteria MD 5775 [facility] 200 [place], [place] [address] Assigned Neuroscience Provider 04/02/23 Cheng Todd PA-C [address] [place] [address] [id number] Assigned PCP 04/30/23 07/15/23 Radha Lomeli APRN CAFETERIA ATTENDANT [address] [facility] [address] [place] 669405 Assigned Heart and Vascular Provider 05/28/23 Jelena David Radha, OD [address] [facility] [place] [address] MD Ophthalmology 06/15/23 Pao Joseph, RN Personal Advocate & Liaison (PAL) Nurse 08/01/23 11/07/23 Esha Grimm PA-C [address] [place] [address] Assigned PCP 07/16/23 Valery Veronica PA-C [address] [place] [address] 429965 Physician Outsole Compressor Dermatology 09/19/23 Rey Tay MD [address] [place] [address] MD Gastroenterology 09/20/23 Rocky Zepeda DO [address] [place] [address] 205545 Physician Gastroenterology 09/20/23 Philip Dumont MD [address] [place] [address] 855225 Physician Ophthalmology 09/22/23 Meredith Carrera PA-C [address] [place] [address] 875025 Assigned Gastroenterology Provider 11/01/23 Neil Kent MD [address] [address] Dermatology 11/02/23 [place] [address] [address] Neurological Surgery 12/26/23 Audrey Waite PA-C 500 [place] [address] Physician Outsole Compressor Dermatology 02/28/24 Valery Veronica PA-C [address] [place] [address] Physician Outsole Compressor Dermatology 04/10/24 Herminia Hatch MD [facility]5 [place] [address] Assigned Rheumatology Provider 07/02/24 documented as of this encounter
--- OUTSIDE RECORDS SUMMARY | 2024-08-28 19:06 | XMS_ITS | Encounter Summary ---
Author Organization [place] Address [address] [place] [address] Care Team Providers Care Cage Operator Name Role Phone Lita Oseguera Unavailable Unavailable Marija Edgar APRN SURFACE MINER Primary Care Provider + Marija Edgar APRN SURFACE MINER Unavailable [phone] Keisha Dotson MD Unavailable [phone] Diana Desir [facility] Unavailable Rain Galaviz PA-C Unavailable Tavia Wyatt MD Unavailable Erica Farrell APRN SURFACE MINER Unavailable Rich Barrett MD Unavailable [phone] Neil Kent MD Unavailable Diana Desir [facility] Unavailable Livan Sharif MD Unavailable Catherine Cm MD Unavailable + Valery Veronica PA-C Unavailable [phone] Brea Quinn MANAGER DENTAL SURFACE MINER Unavailable Brea Quinn MANAGER DENTAL SURFACE MINER Unavailable Jose Francisco Johnson MD Unavailable Catherine Cm MD Unavailable + Sydnie Martinez RN Unavailable Unavailable Alfonso Renteria MD Unavailable [phone] Esha Grimm PA-C Primary Care Provider [phone] Cheng Todd PA-C Unavailable Radha Lomeli APRN SURFACE MINER Unavailable Jelena David OD Unavailable Pao Joseph RN Unavailable Unavailable Esha Grimm PA-C Unavailable [phone] Valery Veronica PA-C Unavailable Rey Tay MD Unavailable Rocky Zepeda DO Unavailable Philip Dumont MD Unavailable Meredith Carrera PA-C Unavailable [phone] Neil Kent MD Unavailable Juan Pablo Emmanuel MD Unavailable Audrey Waite PA-C Unavailable [phone] JeremíasValery damon PA-C Unavailable Herminia Hatch MD Unavailable Encounter Details Date Type Department Care Team (Late st Contact Info) Description 12/23/2022 [facility] Medical Advice [facility] [address] [place] [address] Lauren Claudio PA-C [address] [place] [address] Social History Tobacco Use Types [...] How often do you attend confucianism or methodist serv ices? Never 09/22/2021 Do [...] Answer Date Recorded PHQ-2 Score 1 10/11/2022 [place] of Occupat ional Health - Occupational Stress [...] in a halfway (including now)? No 09/22/[address] Depression Scale Answer Date Recorded [address] Depression Score 5 01/14/2021 Last EPDS Self Harm Result Not on file 01/14 Education Answer Date Recorded What is the highest level of school you have completed or the highest degree you have received? 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 HEART DOCTOR Gender Identity Female 03/02/2021 5:45 PM CDT [...] AM CDT Office Visit [facility] Neu[facility] [address] [facility], [address] [place] [address] [place] [address] [place] [address] Johnny Penn MD [address] [place] [address] documented as of this [...] as of this encounter Care Teams Cage Operator Relationship Specialty Start Date End Date Marija Edgar APRN SURFACE MINER PCP - General Nurse Practitioner 04/30/20 04/14/23 Esha Grimm PA-C [address] [place] [phone] PCP - General Family Medicine 05/04/23 Lita Oseguera Personal Advocate & Liaison (PAL) 02/28/20 03/27/23 Marija Edgar APRN SURFACE MINER Assigned PCP 06/08/20 04/29/23 Keisha Dotson MD 909 [place], [place] 612955 Assigned Neuroscience Provider 06/04/20 04/01/23 Diana Desir, [facility] 30[address] [place], [place] 879246 Pharmacist Pharmacist 04/17/21 Rain Galaviz PA-C [address] [place] [address] [address] [facility] [place] [address] Physician Salesperson Burial Plots Dermatology 04/28/21 Tavia Wyatt MD [address] [place] [address] [address] [facility] [address] [facility] [address] Dermatology 07/14/21 Erica Farrell APRN SURFACE MINER [address] [place] [address] Nurse Practitioner Cardiovascular Disease 09/09/21 Rich Barrett MD [address] [place] [address] [id number] Physician Ophthalmology 01/21/22 Neil Kent MD [address] [place] [address] [phone] Dermatology 02/24/22 Diana Desir, [facility] 30[address] [place], [place] 934696 Assigned MTM Pharmacist 04/07/22 Livan Sharif MD [address] [place] [address] [place] 100[address] Cardiovascular Disease 05/14/22 Catherine Cm MD [address] [facility] [place] 589205 Cardiovascular Disease 07/21/22 Valery Veronica, PAUcheC [address] [place] [address] 391995 Physician Salesperson Burial Plots Dermatology 07/21/22 Brea Quinn APRN SURFACE MINER [address] [place] [address] [phone] Nurse Practitioner Dermatology 09/21/22 Brea Quinn APRN SURFACE MINER [address] [place] [address] 688272 Assigned Surgical Provider 10/09/22 05/01/24 [place] [address] [place] [address] 664337 Assigned Musculoskeletal Provider 10/09/22 05/01/24 Catherine Cm MD [address] [facility] [place] 198935 Assigned Heart and Vascular Provider 11/13/22 05/27/23 Sydnie Martinez, VJ Personal Advocate & Liaison (PAL) Family Medicine 03/28/23 07/31/23 Alfonso Renteria MD [address] [facility] [address] [place] [address] Assigned Neuroscience Provider 04/02/23 Cheng Todd PA-C [address] [place] [address] [phone] Assigned PCP 04/30/23 07/15/23 Radha Lomeli APRN SURFACE MINER [address] [facility] [address] [place], [place] 561655 Assigned Heart and Vascular Provider 05/28/23 Jelena David OD [address] [facility] [place] [place] [address] Ophthalmology 06/15/23 Pao Joseph, VJ Personal Advocate & Liaison (PAL) Nurse 08/01/23 11/07/23 Esha Grimm PA-C [address] [place] [address]47[address] Assigned PCP 07/16/23 Valery Veronica PA-C [address] [place] [address] 479695 Physician Salesperson Burial Plots Dermatology 09/19/23 Rey Tay MD [address] [place] [address] 143855 MD Gastroenterology 09/20/23 Rocky Zepeda DO 500 [place] [address] Physician Gastroenterology 09/20/23 Philip Dumont MD 516 [place], [place] 426975 Physician Ophthalmology 09/22/23 Meredith Carrera PA-C 9 [place], [place] 475055 Assigned Gastroenterology Provider 11/01/23 Neil Kent MD [address] 147690 Dermatology 11/02/23 [place] [address] 837457 Neurological Surgery 12/26/23 Audrey Waite PA-C 500 [place] [address] Physician Salesperson Burial Plots Dermatology 02/28/24 Valery Veronica PA-C [address] [place] [address] Physician Salesperson Burial Plots Dermatology 04/10/24 Herminia Hatch MD [facility] [place] [address] Assigned Rheumatology Provider 07/02/24 documented as of this encounter
--- OUTSIDE RECORDS SUMMARY | 2024-08-28 19:06 | XMS_ITS | Encounter Summary ---
Author Organization [place] Address [address] [place] [address] Care Team Providers Care Plumbing Installer Name Role Phone Diana Desir [facility] Unavailable Rain Galaviz PA-C Unavailable Tavia Wyatt MD Unavailable Erica Farrell APRN CHEMICAL PROCESSING EQUIPMENT REPAIRER Unavailable Rich Barrett MD Unavailable [phone] Neil Kent MD Unavailable Diana Desir [facility] Unavailable Livan Sharif MD Unavailable Catherine mC MD Unavailable + Valery Veronica PA-C Unavailable [phone] Brea Quinn LAUNDRY SUPERVISOR CHEMICAL PROCESSING EQUIPMENT REPAIRER Unavailable [phone] Brea Quinn LAUNDRY SUPERVISOR CHEMICAL PROCESSING EQUIPMENT REPAIRER Unavailable Jose Francisco Johnson MD Unavailable Alfonso Renterai MD Unavailable [phone] Esha Grimm PA-C Primary Care Provider Lomeli, Radha E LAUNDRY SUPERVISOR CHEMICAL PROCESSING EQUIPMENT REPAIRER Unavailable [phone] Jelena David OD Unavailable Esha Grimm PA-C Unavailable [phone] Valery Veronica PA-C Unavailable [phone] Rey Tay MD Unavailable Rocky Zepeda DO Unavailable Philip Dumont MD Unavailable [phone] Meredith Carrera PA-C Unavailable [phone] Neil Kent MD Unavailable Juan Pablo Emmanuel MD Unavailable [phone] Audrey Waite PA-C Unavailable [phone] Valery Veronica PA-C Unavailable [phone] Herminia Hatch MD Unavailable Encounter Details Date Type Department Care Team (Late st Contact Info) Description 11/21/2023 [facility] Medical Advice [facility] Gastro[facility]ology Clinic [address] [place] [address] Sofia Alcantar Social History Tobacco [...] Score 0 10/25/2023 [facility] - Occupational Stress Questionnaire Answer Date [...] exercise at this level? 30 min 03/10/2023 Angora Depression Scale Answer Date Recorded Angora Depression Score 5 01/14/2021 Last EPDS Self [...] PM CDT Legal Sex Female 4:13 AM SWING TENDER Gender Identity Female 03/02/2021 5:45 PM CDT Sexual Orientation Straight 02/28/2020 12 :51 AM CDT documented as of this encounter Plan of Treatment Upcoming Encounters Date Type Department Care Team (Late st Contact Info) Description 10/23/2024 9:30 AM CDT Office Visit [facility] Neurology [address], [address] [place] [address] [place] [address] [address] [place] [address] Johnny Penn MD 49[address] [facility] [place] [address] documented as of this encounter Visit Diagnoses Not on filedocumented in this encounter Additional Health Concerns Infection Onset Date Last Indicated Resolved Time Rule Out COVID-19 12/26/2023 12/26/2023 12/26/2023 9:50 AM CDT Rule Out COVID-19 04/09/2024 04/09/2024 04/10/2024 6:48 PM CDT Assessment Noted Time PHQ-9 Depression Total Score: 4 06/20/20 23 8:40 AM SWING TENDER documented as of this encounter Care Teams Plumbing Installer Relationship Specialty Start Date End Date Esha Grimm PA-C [address] [place] [address] PCP - General Family Medicine 05/04/23 Diana Desir, [facility] [address] [place] [address] Pharmacist Pharmacist 04/17/21 Rain Galaviz PA-C [address] [place] [address] [address] [place] [address] Physician Assistant Front End Manager Dermatology 04/28/21 Tavia Wyatt MD [address] [place] [address] [address] [facility] [place] [address] Dermatology 07/14/21 Erica Farrell APRN CHEMICAL PROCESSING EQUIPMENT REPAIRER 6[address] [facility] [address] [place] [address] Nurse Practitioner Cardiovascular Disease 09/09/21 Rich Barrett MD 516 [facility] 9A [place], [place] 0[address] Physician Ophthalmology 01/21/22 Neil Kent MD [address] [place] [address] 139045 Dermatology 02/24/22 Diana Desir, [facility] 3033 [place] [address] Assigned MTM Pharmacist 04/07/22 Livan Sharif MD [address], [facility] [address] [place] [address] Cardiovascular Disease 05/14/22 Catherine Cm MD [address] [facility] [address] [place], [place] 180695 Cardiovascular Disease 07/21/22 Valery Veronica, PA-C 909 [place], [place] 329915 Physician Assistant Front End Manager Dermatology 07/21/22 Brea Quinn APRN CHEMICAL PROCESSING EQUIPMENT REPAIRER 500 [place], [place] 202145 Nurse Practitioner Dermatology 09/21/22 Brea Quinn APRN CHEMICAL PROCESSING EQUIPMENT REPAIRER [address] [place] [address] Assigned Surgical Provider 10/09/22 05/01/24 [place] [address] [address] [facility] 300 [place] [address] Assigned Musculoskeletal Provider 10/09/22 05/01/24 Alfonso Renteria MD [address] [facility] 200 [place] [address] Assigned Neuroscience Provider 04/02/23 Radha Lomeli APRN CHEMICAL PROCESSING EQUIPMENT REPAIRER [address] [place], [place] 926285 Assigned Heart and Vascular Provider 05/28/23 Tommy Davidistine SONJA Garcia [address] [facility] [place] [address] MD Ophthalmology 06/15/23 Esha Grimm PA-C [address] [place] [phone] Assigned PCP 07/16/23 Valery Veronica PA-C [address] [place] [address] 926185 Physician Assistant Front End Manager Dermatology 09/19/23 Rey Tay MD [address] [place] [address] 658595 Gastroenterology 09/20/23 Rocky Zepeda DO [address] [place] [address] 536625 Physician Gastroenterology 09/20/23 Philip Dumont MD [address] [place] [address] 520275 Physician Ophthalmology 09/22/23 Meredith Carrera PA-C [address] [place] [address] 899475 Assigned Gastroenterology Provider 11/01/23 Neil Kent MD [address] 333330 Dermatology 11/02/23 [place] [address] [address] Neurological Surgery 12/26/23 Audrey Waite PA-C 500 [place] [address] Physician Assistant Front End Manager Dermatology 02/28/24 Valery Veronica PA-C [address] [place] [address] Physician Assistant Front End Manager Dermatology 04/10/24 Herminia Hatch MD [facility]5 [place], [place] 15801125 Assigned Rheumatology Provider 07/02/24 documented as of this encounter
--- OUTSIDE RECORDS SUMMARY | 2024-08-28 19:06 | XMS_ITS | Encounter Summary ---
Author Organization [place] Address [address] [place] [address] Care Team Providers Care Chicken Raiser Name Role Phone Diana Desir [facility] Unavailable Rain Galaviz PA-C Unavailable [phone] Tavia Wyatt MD Unavailable Erica Farrell APRN FUEL CELL SYSTEMS ENGINEER Unavailable Rich Barrett MD Unavailable [phone] Neil Kent MD Unavailable Diana Desir [facility] Unavailable Livan Sharif MD Unavailable Catherine Cm MD Unavailable + Valery Veronica PA-C Unavailable Brea Quinn BULL BUCKER FUEL CELL SYSTEMS ENGINEER Unavailable [phone] Brea Quinn BULL BUCKER FUEL CELL SYSTEMS ENGINEER Unavailable [phone] Jose Francisco Johnson MD Unavailable Alfonso Renteria MD Unavailable [phone] Esha Grimm PA-C Primary Care Provider Radha Lomeli APRN FUEL CELL SYSTEMS ENGINEER Unavailable Jelena David OD Unavailable Esha Grimm PA-C Unavailable [phone] Valery Veronica PA-C Unavailable [phone] Rey Tay MD Unavailable Rocky Zepeda DO Unavailable Philip Dumont MD Unavailable [phone] Meredith Carrera PA-C Unavailable [phone] Neil Kent MD Unavailable Juan Pablo Emmanuel MD Unavailable [phone] Audrey Waite PA-C Unavailable [phone] Valery Veronica PA-C Unavailable Herminia Hatch MD Unavailable Encounter Details Date Type Department Care Team (Late st Contact Info) Description 03/05/2024 [facility] Medical Advice [facility] Gastroenterology Clinic [address] [place] [address] Rebecca Moctezuma Social History Tobacco [...] Answer Date Recorded PHQ-2 Score 1 02/07/2024 [facility] - Occupational Stress [...] exercise at this level? 30 min 03/10/2023 [place] Depression Scale Answer Date Recorded [place] Depression Score 5 01/14/2021 Last EPDS Self [...] PM CDT Legal Sex Female 4:13 AM INCINERATOR ATTENDANT Gender Identity Female 03/02/2021 5:45 PM CDT Sexual Orientation Straight 02/28/2020 12 :51 AM CDT documented as of this encounter Plan of Treatment Upcoming Encounters Date Type Department Care Team (Late st Contact Info) Description 10/23/2024 9:30 AM CDT Office Visit [facility] Neurology [address], [address] [place] [address] [place] [address] [place] [address] Johnny Penn MD [address] [place] [address] documented as of this encounter Visit Diagnoses Not on filedocumented in this encounter Additional Health Concerns Infection Onset Date Last Indicated Resolved Time Rule Out COVID-19 04/09/2024 04/09/2024 04/10/2024 6:48 PM CDT Assessment Noted Time PHQ-9 Depression Total Score: 3 02/07/20 24 9:33 AM CDT documented as of this encounter Care Teams Chicken Raiser Relationship Specialty Start Date End Date Esha Grimm PA-C [address] [place] [address] PCP - General Family Medicine 05/04/23 Diana Desir, [facility] [address] [place] [address] Pharmacist Pharmacist 04/17/21 Rain Galaviz PA-C [address] [place] [address] [address] [place] [address] Physician Hands Hanger Dermatology 04/28/21 Tavia Wyatt MD [address] [place] [address] [address] [place] [address] Dermatology 07/14/21 Erica Farrell APRN FUEL CELL SYSTEMS ENGINEER 6405 [facility] [address] [place], [place] 707745 Nurse Practitioner Cardiovascular Disease 09/09/21 Rich Barrett MD [address] [facility] 9A [place], [place] 282675 Physician Ophthalmology 01/21/22 Neil Kent MD 500 [place], [place] 743535 Dermatology 02/24/22 Diana Desir, [facility] [place] [address] Assigned MTM Pharmacist 04/07/22 Livan Sharif MD [address] [facility] [address] [place], [place] 15[address] Cardiovascular Disease 05/14/22 Catherine Cm MD 6405 [facility] [address] [place] [address] Cardiovascular Disease 07/21/22 Valery Veronica, PA-C [address] [place] [address] 050865 Physician Hands Hanger Dermatology 07/21/22 Brea Quinn APRN FUEL CELL SYSTEMS ENGINEER [address] [place] [address] 380155 Nurse Practitioner Dermatology 09/21/22 Brea Quinn APRN FUEL CELL SYSTEMS ENGINEER [address] [place] [address] Assigned Surgical Provider 10/09/22 05/01/24 [place] [address] [place] [address] [address] Assigned Musculoskeletal Provider 10/09/22 05/01/24 Alfonso Renteria MD [address] [facility] 200 [place], [place] 501736 Assigned Neuroscience Provider 04/02/23 Radha Lomeli APRN FUEL CELL SYSTEMS ENGINEER 6405 [facility] [place] [address] Assigned Heart and Vascular Provider 05/28/23 [place]ena David OD [address] [facility] [address] [place] [id number] MD Ophthalmology 06/15/23 Esha Grimm PA-C [address] [place] [address] Assigned PCP 07/16/23 Valery Veronica PA-C [address] [place] [address] 753925 Physician Hands Hanger Dermatology 09/19/23 Rey Tay MD [address] [place] [address] 165625 MD Gastroenterology 09/20/23 Rocky Zepeda DO [address] [place] [address] 403285 Physician Gastroenterology 09/20/23 Philip Dumont MD [address] [place] [address] 916755 Physician Ophthalmology 09/22/23 Meredith Carrera PA-C [address] [place] [address] 839035 Assigned Gastroenterology Provider 11/01/23 Neil Kent MD [address] [address] Dermatology 11/02/23 [place] [address] [place] [address] [place] [address] Neurological Surgery 12/26/23 Audrey Waite PAUcheC 500 [place] [address] Physician Hands Hanger Dermatology 02/28/24 Valery Veronica PA-C [address] [place] [address] Physician Hands Hanger Dermatology 04/10/24 Herminia Hatch MD [address] [place] [address] Assigned Rheumatology Provider 07/02/24 documented as of this encounter
--- OUTSIDE RECORDS SUMMARY | 2024-08-28 19:06 | XMS_ITS | Encounter Summary ---
Author Organization [place] Address [address] [place] [address] Care Team Providers Care Deputy Sheriff Generalist Name Role Phone Diana Desir [facility] Unavailable Rain Galaviz PA-C Unavailable Tavia Wyatt MD Unavailable Erica Farrell APRN TEACHER AIDE Unavailable Rich Barrett MD Unavailable [phone] Neil Kent MD Unavailable Diana Desir [facility] Unavailable Livan Sharif MD Unavailable Catherine Cm MD Unavailable + Valery Veronica PA-C Unavailable Brea Quinn HOTEL CONCIERGE TEACHER AIDE Unavailable [phone] Brea Quinn HOTEL CONCIERGE TEACHER AIDE Unavailable Jose Francisco Johnson MD Unavailable Alfonso Renteria MD Unavailable [phone] Esha Grimm PA-C Primary Care Provider [phone] Radha Lomeli APRN TEACHER AIDE Unavailable Jelena David OD Unavailable Esha Grimm PA-C Unavailable [phone] Valery Veronica PA-C Unavailable [phone] Rey Tay MD Unavailable Rocky Zepeda DO Unavailable Philip Dumont MD Unavailable [phone] Meredith Carrera PA-C Unavailable [phone] Neil Kent MD Unavailable Juan Pablo Emmanuel MD Unavailable Audrey Waite PA-C Unavailable [phone] Valery Veronica PA-C Unavailable [phone] Herminia Hatch MD Unavailable Encounter Details Date Type Department Care Team (Late st Contact Info) Description 02/01/[address] [facility] Neurology [address], [address] [place] [address] Macy Pinedo, RN Social History Tobacco [...] exercise at this level? 30 min 03/10/2023 [place] Depression Scale Answer Date Recorded [place] [...] CDT Legal Sex Female 4:13 AM HUMAN SERVICES PROFESSIONAL Gender Identity Female 03/02/2021 5:45 PM CDT Sexual Orientation Straight 02/28/2020 12 :51 AM CDT documented as of this encounter Plan of Treatment Upcoming Encounters Date Type Department Care Team (Late st Contact Info) Description 10/23/2024 9:30 AM CDT Office Visit [facility] Neurology [address], [address] [place] [address] [place] [address] [place] 597567 Johnny Penn MD [address] [place] [id number] documented as of this encounter Visit Diagnoses Not on filedocumented in this encounter Additional Health Concerns Infection Onset Date Last Indicated Resolved Time Rule Out COVID-19 04/09/2024 04/09/2024 04/10/2024 6:48 PM CDT Assessment Noted Time PHQ-9 Depression Total Score: 4 12/11/20 23 8:40 AM HUMAN SERVICES PROFESSIONAL documented as of this encounter Care Teams Deputy Sheriff Generalist Relationship Specialty Start Date End Date Esha Grimm PA-C [address] [place] [address] PCP - General Family Medicine 05/04/23 Diana Desir, [facility] [address] [address] Pharmacist Pharmacist 04/17/21 Rian Galaviz PA-C [address] [place] [address] [address] [place] [address] Physician Java Web Application Developer Dermatology 04/28/21 Tavia Wyatt MD [address] [place] [address] [place] [address] Dermatology 07/14/21 Erica Farrell APRN TEACHER AIDE [address] [facility] [address] [place] [address] Nurse Practitioner Cardiovascular Disease 09/09/21 Rich Barrett MD [address] [place] [address] 9[address] [place], [place] 4[address]95 Physician Ophthalmology 01/21/22 Neil Kent MD [address] [place] [address] 368655 Dermatology 02/24/22 Diana Desir, [facility] [place] [address] Assigned MTM Pharmacist 04/07/22 Livan Sharif MD [address] [facility] [address] [place] [address] Cardiovascular Disease 05/14/22 Catherine Cm MD 6405 [facility] [address] [place] [address] Cardiovascular Disease 07/21/22 Valery Veronica, PA-C [address] [place] [address] 305465 Physician Java Web Application Developer Dermatology 07/21/22 Brea Quinn APRN TEACHER AIDE [address] [place] [address] Nurse Practitioner Dermatology 09/21/22 Brea Quinn APRN TEACHER AIDE [address] [place] [address] Assigned Surgical Provider 10/09/22 05/01/24 [place] [address] [facility] [facility] 300 [place] [address] Assigned Musculoskeletal Provider 10/09/22 05/01/24 Alfonso Renteria MD [address] [facility] [facility] 200 [place] [address] Assigned Neuroscience Provider 04/02/23 Radha Lomeli APRN TEACHER AIDE [address] [place] [address] Assigned Heart and Vascular Provider 05/28/23 Jelena David OD [address] [place] [address] MD Ophthalmology 06/15/23 Esha Grimm PA-C [address] [place] [address] Assigned PCP 07/16/23 Valery Veronica PA-C [address] [place] [address] 229795 Physician Java Web Application Developer Dermatology 09/19/23 Rey Tay MD [address] [place] [address] 573185 MD Gastroenterology 09/20/23 Rocky Zepeda DO [address] [place] [address] 105695 Physician Gastroenterology 09/20/23 Philip Dumont MD [address] [place] [address] 333035 Physician Ophthalmology 09/22/23 Meredith Carrera PA-C [address] [place] [address] 719575 Assigned Gastroenterology Provider 11/01/23 Neil Kent MD [address] [address] Dermatology 11/02/23 [place] [address] [address] Neurological Surgery 12/26/23 Audrey Waite PAUcheC 500 [place] [address] Physician Java Web Application Developer Dermatology 02/28/24 Valery Veronica PA-C [address] [place] [address] Physician Java Web Application Developer Dermatology 04/10/24 Herminia Hatch MD [facility] [place] [address] Assigned Rheumatology Provider 07/02/24 documented as of this encounter
--- OUTSIDE RECORDS SUMMARY | 2024-08-28 19:06 | XMS_ITS | Encounter Summary ---
Author Organization [place] Address [address] [place] [address] Care Team Providers Care Booking Police Officer Name Role Phone Diana Desir [facility] Unavailable Rain Galaviz PA-C Unavailable [phone] Tavia Wyatt MD Unavailable Erica Farrell APRN FILM BOOKER Unavailable Rich Barrett MD Unavailable [phone] Neil Kent MD Unavailable Diana Desir [facility] Unavailable Livan Sharif MD Unavailable Catherine Cm MD Unavailable + Valery Veronica PA-C Unavailable Brea Quinn TOBACCO SORTER FILM BOOKER Unavailable Brea Quinn TOBACCO SORTER FILM BOOKER Unavailable Jose Francisco Johnson MD Unavailable Alfonso Renteria MD Unavailable [phone] Esha Grimm PA-C Primary Care Provider [phone] Lomeli, Radha E TOBACCO SORTER FILM BOOKER Unavailable [phone] Jelena David OD Unavailable Esha Grimm PA-C Unavailable [phone] Valery Veronica PA-C Unavailable Rey Tay MD Unavailable Rocky Zepeda DO Unavailable Philip Dumont MD Unavailable Meredith Carrera PA-C Unavailable [phone] Neil Kent MD Unavailable Juan Pablo Emmanuel MD Unavailable Audrey Waite PA-C Unavailable [phone] Valery Veronica PA-C Unavailable Herminia Hatch MD Unavailable Reason for Visit * Reason Onset Date Comments Call Back 12/21/2023 Schedule appt to brandy Encounter Details Date Type Department Care Team (Late st Contact Info) Description 12/21/2023 [facility] 6[address] [facility] [address] [place] [address] Livan Sharif MD 6406 [facility] [address] [place] [address] Call Back (Schedule appt tomorrow [...] PHQ-2 Score 0 10/25/2023 [facility] - Occupational [...] PM CDT Legal Sex Female 4:13 AM PSYCH COORDINATOR Gender Identity Female 03/02/2021 5:45 PM [...] on wait list for . 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 Carley ZABALA [facility] * Telephone Encounter - Sandra Whiting - 12/21/2023 12:[address] [facility] Call Center Phone Message [...] [facility] Neurology Clinics - [address], [address] [place] [address] [place] [address] [address] [place] [address] Johnny Penn MD [address] [facility] [place] [address] documented as of this encounter Visit Diagnoses Not on filedocumented in this encounter Additional Health Concerns Infection Onset Date Last Indicated Resolved Time Rule Out COVID-19 12/26/2023 12/26/2023 12/26/2023 9:50 AM CDT Rule Out COVID-19 04/09/2024 04/09/2024 04/10/2024 6:48 PM CDT Assessment Noted Time PHQ-9 Depression Total Score: 4 06/20/20 23 8:40 AM PSYCH COORDINATOR documented as of this encounter Care Teams Booking Police Officer Relationship Specialty Start Date End Date Esha Grimm PA-C [address] [place] [address] PCP - General Family Medicine 05/04/23 Diana Desir, [facility] [address] [place], [place] 9420[address] Pharmacist Pharmacist 04/17/21 Rain Galaviz PA-C [address] [place] [address] [address] [place] [address] Physician Corporate Planning Manager Dermatology 04/28/21 Tavia Wyatt MD [address] [place] [address] [address] [facility] [place] [address] Dermatology 07/14/21 Erica Farrell APRN FILM BOOKER [address] [facility] [address] [place] [address] Nurse Practitioner Cardiovascular Disease 09/09/21 Rich Barrett MD [address] [address] Physician Ophthalmology 01/21/22 Neil Kent MD 500 [place], [place] [id number] Dermatology 02/24/22 Diana Desir, [facility] 3033 [place], [place] 309376 Assigned MTM Pharmacist 04/07/22 Livan Sharif MD 6405 [facility] [address] [place], [place] 6[address] Cardiovascular Disease 05/14/22 Catherine Cm MD [address] [place] [id number] [place], [place] 690625 Cardiovascular Disease 07/21/22 Valery Veronica, PA-C [address] [place] [address] 453665 Physician Corporate Planning Manager Dermatology 07/21/22 Brea Quinn APRN FILM BOOKER 500 [place], [place] 043905 Nurse Practitioner Dermatology 09/21/22 Brea Quinn APRN FILM BOOKER 6401 [place], [place] 052622 Assigned Surgical Provider 10/09/22 05/01/24 [place] [address] [address] [facility] 300 [place], [place] 549327 Assigned Musculoskeletal Provider 10/09/22 05/01/24 Alfonso Renteria MD [address] [facility] 200 [place], [place] 335866 Assigned Neuroscience Provider 04/02/23 Armani Radha StovallARLENE FILM BOOKER [address] [place], [place] 309265 Assigned Heart and Vascular Provider 05/28/23 [place] OD [address] [facility] [address] [place] [id number] MD Ophthalmology 06/15/23 Esha Grimm PA-C [address] [place] [address] Assigned PCP 07/16/23 Valery Veronica PA-C [address] [place] [address] 716315 Physician Corporate Planning Manager Dermatology 09/19/23 Rey Tay MD [address] [place] [address] 666885 Gastroenterology 09/20/23 Rocky Zepeda DO [address] [place] [address] 667235 Physician Gastroenterology 09/20/23 Philip Dumont MD [address] [place] [address] 088615 Physician Ophthalmology 09/22/23 Meredith Carrera PA-C 9 [place], [place] 789995 Assigned Gastroenterology Provider 11/01/23 Neil Kent MD [address] [address] Dermatology 11/02/23 [place] [address] [place] [address] Neurological Surgery 12/26/23 Audrey Waite PA-C 500 [place] [address] Physician Corporate Planning Manager Dermatology 02/28/24 Valery Veronica PA-C 035346 [place] [address] Physician Corporate Planning Manager Dermatology 04/10/24 Herminia Hatch MD [facility]5 [place], [place] [address] Assigned Rheumatology Provider 07/02/24 documented as of this encounter
--- OUTSIDE RECORDS SUMMARY | 2024-08-28 19:06 | XMS_ITS | Encounter Summary ---
Author Organization [place] Address [address] [place] [address] Care Team Providers Care Bridge Teacher Name Role Phone Lita Oseguera Unavailable Unavailable Marija Edgar APRN IUSS ACOUSTIC ANALYST Primary Care Provider + Chanelle Mccann APRN CNM Unavailab le Kyara De La Fuente RN Unavailable [phone] Marija Edgar APRN IUSS ACOUSTIC ANALYST Unavailable [phone] Mynor Broussard MD Unavailable [phone] Keisha Dotson MD Unavailable [phone] Mary Mejia Unavailable Unavailable Stacey Briones BUSINESS DEVELOPMENT Unavailable Lesley Guillermo CHW Unavailable Mary Mejia Unavailable Unavailable Lita Oseguera Unavailable Unavailable Galo Burrell MD Unavailable Unavailable Cristina Wood Unavailable Lesley Guillermo CHW Unavailable Meredith Bedoya Unavailable Unavailable Cristina Wood Unavailable Diana Desir [facility] Unavailable [phone] [place], Rain Lena PA-C Unavailable Summer Lara MD Unavailable [phone] Summre Lara MD Unavailable [phone] Summer Lara MD Unavailable [phone] Tavia Wyatt MD Unavailable [phone] Johnny Murillo MD Unavailable +[phone] Erica Farrell MECHANICAL LEAD IUSS ACOUSTIC ANALYST Unavailable VikasTeresita H Unavailable Tavia Wyatt MD Unavailable [phone] Diana Desir [facility] Unavailable [phone] Rich Barrett MD Unavailable Neil Kent MD Unavailable Roney Story [facility] Unavailable Erica Farrell APRN IUSS ACOUSTIC ANALYST Unavailable Diana Desir [facility] Unavailable [phone] Jelena David OD Unavailable Galo Burrell MD Unavailable Unavailable Livan Sharif MD Unavailable Livan Sharif MD Unavailable + Catherine Cm MD Unavailable + Valery Veronica PA-C Unavailable [phone] Catherine Cm MD Unavailable + Johnny Murillo MD Unavailable +[phone]- Brea Quinn MECHANICAL LEAD IUSS ACOUSTIC ANALYST Unavailable [phone] Brea Quinn MECHANICAL LEAD IUSS ACOUSTIC ANALYST Unavailable [phone] Jose Francisco Johnson MD Unavailable Livan Sharif MD Unavailable Catherine Cm MD Unavailable + Sydnie Martinez RN Unavailable Unavailable Alfonso Renteria MD Unavailable [phone] Esha Grimm PA-C Primary Care Provider Cheng Todd PA-C Unavailable Radha Lomeli APRN IUSS ACOUSTIC ANALYST Unavailable FrankieJelena OD Unavailable [phone] Pao Joseph RN Unavailable Unavailable Esha Grimm PA-C Unavailable [phone] Valery Veronica PA-C Unavailable Rey Tay MD Unavailable Rocky Zepeda DO Unavailable Philip Dumont MD Unavailable Meredith Carrera PA-C Unavailable [phone] Neil Kent MD Unavailable Juan Pablo Emmanuel MD Unavailable Audrey Waite PA-C Unavailable [phone] JeremíasValery damon PA-C Unavailable Herminia Hatch MD Unavailable Encounter Details Date Type Department Care Team (Latest Contact Info) Description 07/29/2020 MyC Medical Advice [facility] [address] [place] [address] Marija Edgar APRN IUSS ACOUSTIC ANALYST [address] [place] [address] Palpitations (Primary Dx) Social History Tobacco [...] CDT Legal Sex Female 4:13 AM HEALTH COMPANION Gender Identity Female 03/02/2021 5:45 PM CDT Sexual Orientation Straight 02/28/2020 12 :51 AM CDT COVID-19 Exposure Response Date Recorded In the last month, have you been in contact with someone who was confirmed or suspected to have Coronavirus / COVID-19? No / Unsure 07/30/2020 4:53 PM HEALTH COMPANION documented as of this encounter Miscellaneous Notes * Telephone Encounter - Marija Edgar APRN IUSS ACOUSTIC ANALYST - 07/30/2020 10:21 AM HEALTH COMPANION Responded via [employer] Marija Edgar APRN IUSS ACOUSTIC ANALYST on 07/30/2020 at 10:28 AM TH COMPANION documented in this encounter Plan of Treatment Upcoming Encounters Date Type Department Care Team (Late st Contact Info) Description 10/23/2024 9:30 AM CDT Office Visit [facility] Neurology Clinics [address], [address] [place] [address] [place] [address] [address] [place] 558177 Johnny Penn MD [address] [place] [address] [place] 332835 documented as of this encounter Visit Diagnoses Diagnosis Palpitations- Primary documented in this encounter Additional Health Concerns Infection Onset Date Last Indicated Resolved Time Rule Out COVID-19 07/30/2020 07/30/2020 07/30/2020 7:11 PM HEALTH COMPANION Rule Out COVID-19 08/30/2020 08/30/202008/30/2020 5:05 PM HEALTH COMPANION Rule Out COVID-19 09/24/2020 09/24/2020 09/24/2020 9:24 AM CDT Rule Out COVID-19 11/05/2020 11/05/2020 11/06/2020 1:09 PM CDT Rule Out COVID-19 05/11/2021 05/11/2021 05/13/2021 10:18 AM CDT Rule Out COVID-19 07/13/2021 07/13/2021 07/14/2021 3:04 PM HEALTH COMPANION Rule Out COVID-19 07/18/2021 07/18/2021 07/20/2021 1:56 PM HEALTH COMPANION COVID-19 07/18/2021 07/18/2021 08/08/2021 11:3 9 PM HEALTH COMPANION Rule Out COVID-19 12/18/2021 12/18/2021 12/19/2021 11:34 AM CDT Rule Out COVID-19 02/24/2022 02/24/2022 02/25/2022 1:08 PM CDT Rule Out COVID-19 04/26/2022 04/26/2022 04/26/2022 6:47 AM CDT Rule Out COVID-19 05/17/2022 05/17/2022 05/17/2022 10:20 PM HEALTH COMPANION Rule Out COVID-19 06/09/2022 06/09/2022 06/09/2022 9:35 AM HEALTH COMPANION COVID-19 06/09/2022 06/09/2022 06/30/2022 11:4 1 PM HEALTH COMPANION Rule Out COVID-19 11/10/2022 11/10/2022 11/11/2022 12:17 PM CDT Rule Out COVID-19 03/07/2023 03/07/2023 03/07/2023 1:20 PM CDT Rule Out COVID-19 12/26/2023 12/26/2023 12/26/2023 9:50 AM CDT Rule Out COVID-19 04/09/2024 04/09/2024 04/10/2024 6:48 PM CDT Assessment Noted Time PHQ-9 Depression Total Score: 9 06/25/20 7:04 AM HEALTH COMPANION documented as of this encounter Care Teams Bridge Teacher Relationship Specialty Start Date End Date Marija Edgar APRN IUSS ACOUSTIC ANALYST PCP - General Nurse Practitioner 04/30/20 04/14/23 Esha Grimm PA-C [address] [place] [address] PCP - General Family Medicine 05/04/23 Lita Oseguera Personal Advocate & Liaison (PAL) 02/28/20 03/27/23 Chanelle Mccann APRN CNM [address] [address] [facility] 200 [place] [address] Assigned OBGYN Provider 05/02/2005/09 Kyara De La Fuente, RN Specialty General Manager Road Production Neurology 06/04/20 03/05/21 Marija Edgar APRN IUSS ACOUSTIC ANALYST Assigned PCP 06/08/20 04/29/23 Mnyor Broussard MD 6363 [facility] 500 [place], [place] 323515 Assigned Surgical Provider 06/01/20 11/28/21 Keisha Dotson MD 909 [place], [place] 234725 Assigned Neuroscience Provider 06/04/20 04/01/23 Mary Mejia Financial Resource Worker 08/07/20 08/21/20 Stacey Briones, BUSINESS DEVELOPMENT Lead General Manager Road Production Primary Care - CC 08/11/2012/30 Lesley Guillermo, [facility] Community Health Worker 08/11/2010/01 NikiatimothyMary Financial [...] Desir, [facility] [address] [facility] [place], [place] [address] Pharmacist Pharmacist 04/17/21 Rain Galaviz PA-C [address] [place] [address] [address] [place], [place] 85[address] Physician Engraving Operator Dermatology 04/28/21 Summer Lara MD [address] [place] [address] 192754 Assigned OBGYN Provider 05/10/2105/23 Summer Lara MD [address] [place] [address] Assigned OBGYN Provider 05/31/21 2 Summer Lara MD [address] [place] [address] Assigned OBGYN Provider 05/24/2105/30 Tavia Wyatt MD [address] [address] Dermatology 07/14/21 Johnny Murillo MD [address] [place] [address] Assigned Musculoskeletal Provider 08/30/21 03/17/22 Erica Farrell APRN IUSS ACOUSTIC ANALYST 6405 [facility] [address] [place], [place] 446555 Nurse Practitioner Cardiovascular Disease 09/09/21 Teresita Bean [facility] [address] [place], [place] [phone] Pharmacist Pharmacist 09/24/21 09/29/21 Tavia Wyatt MD [address] [place], [place] 060870 Assigned Surgical Provider 11/29/21 05/07/22 [facility] [address] [place] [address] Assigned MTM Pharmacist 01/02/22 Rich Barrett MD 516 [facility] 9A [place], [place] 7[address] Physician Ophthalmology 01/21/22 Neil Kent MD 500 [place] [address] Dermatology 02/24/22 [place] [address] [address] [facility] [address] [place] [address] Assigned Musculoskeletal Provider 03/20/22 08/13/22 Erica Farrell APRN IUSS ACOUSTIC ANALYST 1700 [place] [address] Assigned Heart and Vascular Provider 04/03/22 04/16/22 Diana Desir, [facility] 3033 [place], [place] 731766 Assigned MTM Pharmacist 04/07/22 Jelena David OD [address] [facility] [place] [address] Assigned Surgical Provider 05/08/22 10/08/22 Galo Burrell MD Assigned Heart and Vascular Provider 04/17/22 06/11/22 Livan Sharif MD [address] [place] [address] Cardiovascular Disease 05/14/22 Livan Sharif MD [address] [place] [address] Assigned Heart and Vascular Provider 06/12/22 07/23/22 Catherine Cm MD [address] [place] [address] Cardiovascular Disease 07/21/22 Valery Veronica, PA-C [address] [place] [address] Physician Engraving Operator Dermatology 07/21/22 Catherine Cm MD [address] [place] [address] Assigned Heart and Vascular Provider 07/24/22 11/05/22 Johnny Murillo MD [address] [place] [address] Assigned Musculoskeletal Provider 08/14/22 10/08/22 Brea Quinn APRN IUSS ACOUSTIC ANALYST [address] [place] [address] Nurse Practitioner Dermatology 09/21/22 Brea Quinn APRN IUSS ACOUSTIC ANALYST [address] [place] [address] Assigned Surgical Provider 10/09/22 05/01/24 [place] [address] [place] [address] [address] Assigned Musculoskeletal Provider 10/09/22 05/01/24 Livan Sharif MD [address] [address] [place] [address] Assigned Heart and Vascular Provider 11/06/22 11/12/22 Catherine Cm MD [address] [place] [address] Assigned Heart and Vascular Provider 11/13/22 05/27/23 Sydnie Martinez RN Personal Advocate & Liaison (PAL) Family Medicine 03/28/23 07/31/23 Alfonso Renteria MD 5775 [facility] [address] 200 [place] [address] Assigned Neuroscience Provider 04/02/23 Cheng Todd PA-C [address] [place] [address] [id number] Assigned PCP 04/30/23 07/15/23 Radha Lomeli APRN IUSS ACOUSTIC ANALYST [address] [place] [address] Assigned Heart and Vascular Provider 05/28/23 Jelena David OD [address] [facility] [place] [address] Ophthalmology 06/15/23 Pao Joseph RN Personal Advocate & Liaison (PAL) Nurse 08/01/23 11/07/23 Esha Grimm PA-C [address] [place] [address] Assigned PCP 07/16/23 Valery Veronica PA-C [address] [place] [address] Physician Engraving Operator Dermatology 09/19/23 Rey Tay MD 909 [place] [address] Gastroenterology 09/20/23 Rocky Zepeda DO 500 [place] [address] Physician Gastroenterology 09/20/23 Philip Dumont MD [address] [place] [address] Physician Ophthalmology 09/22/23 Meredith Carrera PA-C [address] [place] [address] Assigned Gastroenterology Provider 11/01/23 Neil Kent MD [address] [address] MD Dermatology 11/02/23 [place] [address] [address] Neurological Surgery 12/26/23 Audrey Waite PA-C 500 [place] [address] Physician Engraving Operator Dermatology 02/28/24 Valery Veronica PA-C 743518 [address] [place] [address] Physician Engraving Operator Dermatology 04/10/24 Herminia Hatch MD [facility]5 [place], [place] [address] Assigned Rheumatology Provider 07/02/24 documented as of this encounter
--- OUTSIDE RECORDS SUMMARY | 2024-08-28 19:06 | XMS_ITS | Encounter Summary ---
Author Organization [place] Address [address] [place] [address] Care Team Providers Care Anthropology Department Chair Name Role Phone Diana Desir [facility] Unavailable Rain Galaviz PA-C Unavailable Tavia Wyatt MD Unavailable Erica Farrell APRN ETL PROGRAMMER Unavailable Rich Barrett MD Unavailable [phone] Neil Kent MD Unavailable Diana Desir [facility] Unavailable Livan Sharif MD Unavailable Catherine Cm MD Unavailable + Valery Veronica PA-C Unavailable Brea Quinn TAILOR APPRENTICE ETL PROGRAMMER Unavailable Brea Quinn TAILOR APPRENTICE ETL PROGRAMMER Unavailable Jose Francisco Johnson MD Unavailable Alfonso Renteria MD Unavailable [phone] Esha Grimm PA-C Primary Care Provider [phone] Radha Lomeli APRN ETL PROGRAMMER Unavailable Jelena David OD Unavailable Pao Joseph RN Unavailable Unavailable Esha Grimm PA-C Unavailable [phone] Valery Veronica PA-C Unavailable [phone] Rey Tay MD Unavailable Rocky Zepeda DO Unavailable Philip Dumont MD Unavailable [phone] Meredith Carrera PA-C Unavailable Neil Kent MD Unavailable Juan Pablo Emmanuel MD Unavailable Audrey Waite PA-C Unavailable [phone] Valery Veronica PA-C Unavailable Herminia Hatch MD Unavailable Encounter Details Date Type Department Care Team (Late st Contact Info) Description 10/25/2023 [facility] Medical Advice [facility] [address] [address] [place], RD 909 [place] [address] Social History Tobacco Use [...] you attend [facility]? 1 to 4 times [...] at this level? 30 min 03/10/2023 [place] Depression Scale Answer Date Recorded [place] Depression Score 5 01/14/2021 Last EPDS Self [...] PM CDT Legal Sex Female 4:13 AM SUPERINTENDENT SANITATION Gender Identity Female 03/02/2021 5:45 PM CDT Sexual Orientation Straight 02/28/2020 12 :51 AM CDT documented as of this encounter Plan of Treatment Upcoming Encounters Date Type Department Care Team (Late st Contact Info) Description 10/23/2024 9:30 AM CDT Office Visit [facility] Neurology Clin[facility] [address], [address] [place] [address] [place] [address] [address] [place] [address] Johnny Penn MD [address] [place] [address] documented as of this encounter Visit Diagnoses Not on filedocumented in this encounter Additional Health Concerns Infection Onset Date Last Indicated Resolved Time Rule Out COVID-19 12/26/2023 12/26/2023 12/26/2023 9:50 AM CDT Rule Out COVID-19 04/09/2024 04/09/2024 04/10/2024 6:48 PM CDT Assessment Noted Time PHQ-9 Depression Total Score: 4 06/20/20 8:40 AM SUPERINTENDENT SANITATION documented as of this encounter Care Teams Anthropology Department Chair Relationship Specialty Start Date End Date Esha Grimm PA-C [address] [place] [address] PCP - General Family Medicine 05/04/23 Diana Desir, [facility] 3033 [place] [address] Pharmacist Pharmacist 04/17/21 Rain Galaviz PA-C [address] [place] [address] [address] [place] [address] Physician Business Applications Developer Dermatology 04/28/21 Tavia Wyatt MD [address] [place] [address] [address] [place] [address] Dermatology 07/14/21 Erica Farrell APRN ETL PROGRAMMER 6405 [facility] [address] [place] [address] Nurse Practitioner Cardiovascular Disease 09/09/21 Rich Barrett MD 516 [facility] 9A [place] [address] Physician Ophthalmology 01/21/22 Neil Kent MD 500 [place] [address] Dermatology 02/24/22 Diana Desir, [facility] 3033 [place] [address] Assigned [place] Pharmacist 04/07/22 Livan Sharif MD [address] 664745 Cardiovascular Disease 05/14/22 Catherine Cm MD [address] 221925 Cardiovascular Disease 07/21/22 Valery Veronica, PA-C 909 [place] [address] Physician Business Applications Developer Dermatology 07/21/22 Brea Quinn APRN ETL PROGRAMMER 500 [place] [address] Nurse Practitioner Dermatology 09/21/22 Brea Quinn APRN ETL PROGRAMMER [address] [place] [address] Assigned Surgical Provider 10/09/22 05/01/24 [place] [address] [address] Assigned Musculoskeletal Provider 10/09/22 05/01/24 Alfonso Renteria MD 5775 [facility] [address] 200 [place] [address] Assigned Neuroscience Provider 04/02/23 Radha Lomeli APRN ETL PROGRAMMER [address] [place] [address] Assigned Heart and Vascular Provider 05/28/23 Jelena David OD [address] [place] [address] MD Ophthalmology 06/15/23 Pao Joseph, VJ Personal Advocate & Liaison (PAL) Nurse 08/01/23 11/07/23 Esha Grimm PA-C [address] [place] [address] Assigned PCP 07/16/23 Valery Veronica PA-C [address] [place] [address] 227415 Physician Business Applications Developer Dermatology 09/19/23 Rey Tay MD [address] [place] [address]755 Gastroenterology 09/20/23 Rocky Zepeda DO [address] [place] [address] 748905 Physician Gastroenterology 09/20/23 Philip Dumont MD [address] [place] [address] 119255 Physician Ophthalmology 09/22/23 Meredith Carrera PA-C 909 [place] [address] Assigned Gastroenterology Provider 11/01/23 Neil Kent MD [address] [address] Dermatology 11/02/23 [place] [address] [address] Neurological Surgery 12/26/23 Audrey Waite PA-C 500 [place] [address] Physician Business Applications Developer Dermatology 02/28/24 Valery Veronica PA-C 757651 [place], [place] [address] Physician Business Applications Developer Dermatology 04/10/24 Herminia Hatch MD [facility]5 [place], [place] 309[address] Assigned Rheumatology Provider 07/02/24 documented as of this encounter
--- OUTSIDE RECORDS SUMMARY | 2024-08-28 19:06 | XMS_ITS | Encounter Summary ---
Author Organization [place] Address [address] [place] [address] Care Team Providers Care Sleeve Turner Name Role Phone Diana Desir [facility] Unavailable Rain Galaviz PA-C Unavailable Tavia Wyatt MD Unavailable Erica Farrell APRN SAWING AND ASSEMBLY SUPERVISOR Unavailable Rich Barrett MD Unavailable [phone] Neil Kent MD Unavailable Diana Desir [facility] Unavailable Livan Sharif MD Unavailable Catherine Cm MD Unavailable + Valery Veronica PA-C Unavailable Brea Quinn SALES ACCOUNT MANAGER SAWING AND ASSEMBLY SUPERVISOR Unavailable Brea Quinn SALES ACCOUNT MANAGER SAWING AND ASSEMBLY SUPERVISOR Unavailable Jose Francisco Johnson MD Unavailable Alfonso Renteria MD Unavailable [phone] Esha Grimm PA-C Primary Care Provider [phone] Lomeli, Radha E SALES ACCOUNT MANAGER SAWING AND ASSEMBLY SUPERVISOR Unavailable [phone] Jelena David OD Unavailable Esha Grimm PA-C Unavailable [phone] Valery Veronica PA-C Unavailable [phone] Rey Tay MD Unavailable Rocky Zepeda DO Unavailable Philip Dumont MD Unavailable [phone] Meredith Carrera PA-C Unavailable [phone] Neil Kent MD Unavailable Juan Pablo Emmanuel MD Unavailable [phone] Audrey Wiate PA-C Unavailable [phone] Valery Veronica PA-C Unavailable [phone] Herminia Hatch MD Unavailable Encounter Details Date Type Department Care Team (Late st Contact Info) Description 11/21/2023 [facility] Medical Advice [facility] [address] [place] [address] Sofia Alcantar Social History Tobacco [...] 0 10/25/2023 [facility] Health - Occupational Stress Questionnaire [...] exercise at this level? 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 AM OPERATING SYSTEM PROGRAMMER Gender Identity Female 03/02/2021 5:45 PM CDT Sexual Orientation Straight 02/28/2020 12 :51 AM CDT documented as of this encounter Plan of Treatment Upcoming Encounters Date Type Department Care Team (Late st Contact Info) Description 10/23/2024 9:30 AM CDT Office Visit [facility] Neurology [address], [address] [place] [address] [place] [address] [place] [address] Johnny Penn MD [address] [facility] [place] [address] documented as of this encounter Visit Diagnoses Not on filedocumented in this encounter Additional Health Concerns Infection Onset Date Last Indicated Resolved Time Rule Out COVID-19 12/26/2023 12/26/2023 12/26/2023 9:50 AM CDT Rule Out COVID-19 04/09/2024 04/09/2024 04/10/2024 6:48 PM CDT Assessment Noted Time PHQ-9 Depression Total Score: 4 06/20/20 23 8:40 AM OPERATING SYSTEM PROGRAMMER documented as of this encounter Care Teams Sleeve Turner Relationship Specialty Start Date End Date Esha Grimm PA-C [address] [place] [address] PCP - General Family Medicine 05/04/23 Diana Desir, [facility] [address] [place] [address] Pharmacist Pharmacist 04/17/21 Rain Galaviz PA-C [address] [place] [address] [address] [place] [address] Physician Crime Laboratory Analyst Dermatology 04/28/21 Tavia Wyatt MD [address] [place] [address] [address] [place] [address] Dermatology 07/14/21 Erica Farrell APRN SAWING AND ASSEMBLY SUPERVISOR [address] [facility] [address] [place] [address] Nurse Practitioner Cardiovascular Disease 09/09/21 Rich Barrett MD [address] [facility] [address] [place], [place] 868785 Physician Ophthalmology 01/21/22 Neil Kent MD [address] [place] [address] 133435 Dermatology 02/24/22 Diana Desir, [facility] [address] [place] [address] Assigned MTM Pharmacist 04/07/22 Livan Sharif MD [address], [facility] [address] [place] [address] Cardiovascular Disease 05/14/22 Catherine Cm MD [address] [facility] [address] [place], [place] 548115 Cardiovascular Disease 07/21/22 Valery Veronica, PA-C [address] [place], [place] 011025 Physician Crime Laboratory Analyst Dermatology 07/21/22 Brea Quinn APRN SAWING AND ASSEMBLY SUPERVISOR 500 [place], [place] 988795 Nurse Practitioner Dermatology 09/21/22 Brea Quinn APRN SAWING AND ASSEMBLY SUPERVISOR [address] [place] [address] Assigned Surgical Provider 10/09/22 05/01/24 [place] [address] [place] [facility] 300 [place] [address] Assigned Musculoskeletal Provider 10/09/22 05/01/24 Alfonso Renteria MD [address] [facility] 200 [place] [address] Assigned Neuroscience Provider 04/02/23 Radha Lomeli APRN SAWING AND ASSEMBLY SUPERVISOR [address] [place], [place] 436345 Assigned Heart and Vascular Provider 05/28/23 Tommy Davidistine SONJA Garcia [address] [facility] [place] [address] MD Ophthalmology 06/15/23 Esha Grimm PA-C [address] [place] [phone] Assigned PCP 07/16/23 Valery Veronica PA-C [address] [place] [address] 787875 Physician Crime Laboratory Analyst Dermatology 09/19/23 Rey Tay MD [address] [place] [address] 703685 Gastroenterology 09/20/23 Rocky Zepeda DO [address] [place] [address] 913795 Physician Gastroenterology 09/20/23 Philip Dumont MD [address] [place] [address] 011885 Physician Ophthalmology 09/22/23 Meredith Carrera PA-C [address] [place] [address] 590905 Assigned Gastroenterology Provider 11/01/23 Neil Kent MD [address] 115[address] Dermatology 11/02/23 [place] [address] [place] [address] [address] Neurological Surgery 12/26/23 Audrey Waite PA-C 500 [place] [address] Physician Crime Laboratory Analyst Dermatology 02/28/24 Valery Veronica PA-C [address] [place] [address] Physician Crime Laboratory Analyst Dermatology 04/10/24 Herminia Hatch MD [facility]5 [place], [place] [address] Assigned Rheumatology Provider 07/02/24 documented as of this encounter
--- OUTSIDE RECORDS SUMMARY | 2024-08-28 19:07 | XMS_ITS | Encounter Summary ---
Author Organization [place] Address [address] [place] [address] Care Team Providers Care Solution Spec Name Role Phone Lita Oseguera Unavailable Unavailable Marija Edgar APRN BAD WORK GATHERER Primary Care Provider + Chanelle Mccann APRN CNM Unavailab le Kyara De La Fuente RN Unavailable Marija Edgar APRN BAD WORK GATHERER Unavailable [phone] Mynor Broussard MD Unavailable [phone] Keisha Dotson MD Unavailable Mary Mejia Unavailable Unavailable Stacey Briones [employer] Unavailable [phone] Lesley Guillermo CHW Unavailable Mary Mejia Unavailable Unavailable Lita Oseguera Unavailable Unavailable Galo Burrell MD Unavailable Unavailable Cristina Wood Unavailable Lesley Guillermo CHW Unavailable Meredith Bedoya Unavailable Unavailable Cristina Wood Unavailable Diana Desir [facility] Unavailable [place]uh[place], Rain Lena PA-C Unavailable Summer Lara MD Unavailable [phone] Summer Lara MD Unavailable [phone] Summer Lara MD Unavailable [phone] Tavia Wyatt MD Unavailable [phone] Johnny Murillo MD Unavailable +1- Erica Farrell BRICK LOADER BAD WORK GATHERER Unavailable VikasTeresita H Unavailable Tavia Wyatt MD Unavailable [phone] Diana Desir [facility] Unavailable [phone] Rich Barrett MD Unavailable Neil Kent MD Unavailable Roney Story [facility] Unavailable Erica Farrell APRN BAD WORK GATHERER Unavailable Diana Desir [facility] Unavailable [phone] Jelena David OD Unavailable Galo Burrell MD Unavailable Unavailable Livan Sharif MD Unavailable Livan Sharif MD Unavailable + Catherine Cm MD Unavailable + Valery Veronica PA-C Unavailable [phone] Catherine Cm MD Unavailable + Johnny Murillo MD Unavailable +1- Brea Quinn BRICK LOADER BAD WORK GATHERER Unavailable +[phone] Brea Quinn BRICK LOADER BAD WORK GATHERER Unavailable [phone] Jose Francisco Johnson MD Unavailable Livan Sharif MD Unavailable Catherine Cm MD Unavailable + Sydnie Martinez RN Unavailable Unavailable Alfonso Renteria MD Unavailable [phone] Esha Grimm PA-C Primary Care Provider Cheng oTdd PA-C Unavailable ArmaniRadha APRN BAD WORK GATHERER Unavailable Jelena David OD Unavailable Pao Joseph RN Unavailable Unavailable Esha Grimm PA-C Unavailable [phone] Valery Veronica PA-C Unavailable Rey Tay MD Unavailable Rocky Zepeda DO Unavailable Philip Dumont MD Unavailable Meredith Carrera PA-C Unavailable Neil Kent MD Unavailable Juan Pablo Emmanuel MD Unavailable Audrey Waite PA-C Unavailable [phone] JeremíasValery damon PA-C Unavailable [phone] Herminia Hatch MD Unavailable Encounter Details Date Type Department Care Team (Late st Contact Info) Description 07/17/2020 [facility] Medical Advice [facility] Epilepsy Care [address], [address] [place] [address] Keisha Dotson MD [address] [place] [address] Social History Tobacco Use Types [...] PM CDT Legal Sex Female 4:13 AM CHILD DEVELOPMENT SPECIALIST Gender Identity Female 03/02/2021 5:45 PM CDT Sexual Orientation Straight 02/28/2020 12 :51 AM CDT COVID-19 Exposure Response Date Recorded In the last month, have you been in contact with someone who was confirmed or suspected to have Coronavirus / COVID-19? No / Unsure 06/24/2020 3:01 PM CHILD DEVELOPMENT SPECIALIST documented as of this encounter Miscellaneous Notes * Telephone Encounter - Kyara De La Fuente RN - 07/23/2020 1:41 PM CST Patient contacted the office by [facility] to report intolerability of levetiracetam. She stayed [...] her shewouldn't need medication her whole life. D DEVELOPMENT SPECIALIST documented in this encounter Plan of Treatment Upcoming Encounters Date Type Department Care Team (Late st Contact Info) Description 10/23/2024 9:30 AM CDT Office Visit [facility] Neurology [facility] - [address], [address] [place] [address] [place] [address] [place] [address] Johnny Penn MD [address] [place], [place] 388[address] documented as of this encounter Visit Diagnoses Not on filedocumented in this encounter Additional Health Concerns Infection Onset Date Last Indicated Resolved Time Rule Out COVID-19 07/30/2020 07/30/2020 07/30/2020 7:11 PM CHILD DEVELOPMENT SPECIALIST Rule Out COVID-19 08/30/2020 08/30/2020 08/30/2020 5:05 PM CHILD DEVELOPMENT SPECIALIST Rule Out COVID-19 09/24/2020 09/24/2020 09/24/2020 9:24 AM CDT Rule Out COVID-19 11/05/2020 11/05/2020 11/06/2020 1:09 PM CDT Rule Out COVID-19 05/11/2021 05/11/2021 05/13/2021 10:18 AM CDT Rule Out COVID-19 07/13/2021 07/13/2021 07/14/2021 3:04 PM CHILD DEVELOPMENT SPECIALIST Rule Out COVID-19 07/18/2021 07/18/2021 07/20/2021 1:56 PM CHILD DEVELOPMENT SPECIALIST COVID-19 07/18/2021 07/18/2021 08/08/2021 11:3 9 PM CHILD DEVELOPMENT SPECIALIST Rule Out COVID-19 12/18/2021 12/18/2021 12/19/2021 11:34 AM CDT Rule Out COVID-19 02/24/2022 02/24/2022 02/25/2022 1:08 PM CDT Rule Out COVID-19 04/26/2022 04/26/2022 04/26/2022 6:47 AM CDT Rule Out COVID-19 05/17/2022 05/17/2022 05/17/2022 10:20 PM CHILD DEVELOPMENT SPECIALIST Rule Out COVID-19 06/09/2022 06/09/2022 06/09/2022 9:35 AM CHILD DEVELOPMENT SPECIALIST COVID-19 06/09/2022 06/09/2022 06/30/2022 11:4 1 PM CHILD DEVELOPMENT SPECIALIST Rule Out COVID-19 11/10/2022 11/10/2022 11/11/2022 12:17 PM CDT Rule Out COVID-19 03/07/2023 03/07/2023 03/07/2023 1:20 PM CDT Rule Out COVID-19 12/26/2023 12/26/2023 12/26/2023 9:50 AM CDT Rule Out COVID-19 04/09/2024 04/09/2024 04/10/2024 6:48 PM CDT Assessment Noted Time PHQ-9 Depression Total Score: 9 06/25/20 20 7:04 AM CHILD DEVELOPMENT SPECIALIST documented as of this encounter Care Teams Solution Spec Relationship Specialty Start Date End Date Marija Edgar APRN BAD WORK GATHERER PCP - General Nurse Practitioner 04/30/20 04/14/23 Esha Grimm PA-C [address] [place] [phone] PCP - General Family Medicine 05/04/23 Lita Oseguera Personal Advocate & Liaison (PAL) 02/28/20 03/27/23 Chanelle Mccann APRN CNM [id number] [place] [address] Assigned OBGYN Provider 05/02/2005/09 Kyara De La Fuente, RN Specialty Medical Researcher Neurology 06/04/20 03/05/21 Marija Edgar APRN BAD WORK GATHERER Assigned PCP 06/08/20 04/29/23 Mynor Broussard MD [address] [facility] 500 [place], [place] 584695 Assigned Surgical Provider 06/01/20 11/28/21 Keisha Dotson MD 909 [place], [place] 989395 Assigned Neuroscience Provider 06/04/20 04/01/23 Mary Mejia Financial Resource Worker 08/07/20 08/21/20 Stacey Briones, [facility] Lead Medical Researcher Primary Care - CC 08/11/2012/30 Lesley Guillermo, [facility] Community Health Worker 08/11/2010/01 Mary Mejia Financial Resource Worker 09/02/20 10/06/20 Lita Oseguera Personal Advocate & Liaison (PAL) Family Medicine 09/10/20 09/21/20 Galo Burrell MD Assigned Heart and Vascular Provider 10/05/20 04/02/22 Cristina Wood Financial Resource Worker 10/07/20 10/14/20 Lesley Guillermo, [facility] Community Health Worker 10/23/2012/30 Meredith Bedoya Financial Resource Worker 10/23/20 11/23/20 Cristina Wood Financial Resource Worker 02/09/21 02/09/21 Diana Desir, [facility] [address] [place] [address] Pharmacist Pharmacist 04/17/21 Rain Galaviz PA-C [address] [place] [address] [address] Physician Reel Worker Dermatology 04/28/21 Summer Lara MD [address] [place] [address] Assigned OBGYN Provider 05/10/2105/23 Summer Lara MD [address] [place] [address] Assigned OBGYN Provider 05/31/21 Summer Lara MD [address] [place] [address] Assigned OBGYN Provider 05/24/2105/30 Tavia Wyatt MD [address] [place] [address] Dermatology 07/14/21 Johnny Murillo MD [facility] [facility] [address] [place] [address] Assigned Musculoskeletal Provider 08/30/21 03/17/22 Erica Farrell APRN BAD WORK GATHERER [address] [facility] [address] [place] [address] Nurse Practitioner Cardiovascular Disease 09/09/21 Teresita Bean [facility] [address] [place] [address] Pharmacist Pharmacist 09/24/21 09/29/21 Tavia Wyatt MD [address] [place] [address], [place] [address] Assigned Surgical Provider 11/29/21 05/07/22 Diana Desir, [facility] [address] [place] [address] Assigned MTM Pharmacist 01/02/22 Rich Barrett MD [address] [address] Physician Ophthalmology 01/21/22 Neil Kent MD 500 [place] [address] Dermatology 02/24/22 Roney Story DPM 19339 [facility] [address] [place] [address] Assigned Musculoskeletal Provider 03/20/22 08/13/22 Erica Farrell APRN BAD WORK GATHERER 1700 [place] [address] Assigned Heart and Vascular Provider 04/03/22 04/16/22 Diana Desir, [facility] [address] [place] [address] Assigned MTM Pharmacist 04/07/22 Jelena David OD [address] [place] [address] [place] [address] Assigned Surgical Provider 05/08/22 10/08/22 Galo Burrell MD Assigned Heart and Vascular Provider 04/17/22 06/11/22 Livan Sharif MD [address], [facility] [address] [place] [id number] Cardiovascular Disease 05/14/22 Livan Sharif MD [address], [facility]00 [place] 234805 Assigned Heart and Vascular Provider 06/12/22 07/23/22 Catherine Cm MD [address] [facility]00 [place] 597255 Cardiovascular Disease 07/21/22 Valery Veronica PA-C [address] [place] [address] 911845 Physician Reel Worker Dermatology 07/21/22 Catherine Cm MD [address] [facility]00 [place] 721085 Assigned Heart and Vascular Provider 07/24/22 11/05/22 Johnny Murillo MD [address] [place] [address] 102144 Assigned Musculoskeletal Provider 08/14/22 10/08/22 Brea Quinn APRN BAD WORK GATHERER [address] [place] [address] 191065 Nurse Practitioner Dermatology 09/21/22 Brea Quinn APRN BAD WORK GATHERER [address] [place] [address] [place] 227692 Assigned Surgical Provider 10/09/22 05/01/24 [place] [address] [place] [address] Assigned Musculoskeletal Provider 10/09/22 05/01/24 Livan Sharif MD [address] [facility] [address] [place] [address] Assigned Heart and Vascular Provider 11/06/22 11/12/22 Catherine Cm MD [address] [facility] [address] [place] [address] Assigned Heart and Vascular Provider 11/13/22 05/27/23 Sydnie Martinez RN Personal Advocate & Liaison (PAL) Family Medicine 03/28/23 07/31/23 Alfonso Renteria MD 5775 [facility] 200 [place] [address] Assigned Neuroscience Provider 04/02/23 Cheng Todd PA-C [address] [place] [address] [id number] Assigned PCP 04/30/23 07/15/23 Radha Lomeli APRN BAD WORK GATHERER [address] [place] 816455 Assigned Heart and Vascular Provider 05/28/23 Jelena David OD [address] [facility] [place] [address] MD Ophthalmology 06/15/23 Pao Joseph, RN Personal Advocate & Liaison (PAL) Nurse 08/01/23 11/07/23 Esha Grimm PA-C [address] [place] [address] Assigned PCP 07/16/23 Valery Veronica PA-C [address] [place] [address] 998855 Physician Reel Worker Dermatology 09/19/23 Rey Tay MD [address] [place] [address] 705125 Gastroenterology 09/20/23 Rocky Zepeda DO [address] [place] [address] 614865 Physician Gastroenterology 09/20/23 Philip Dumont MD [address] [place] [address] 240475 Physician Ophthalmology 09/22/23 Meredith Carrera PA-C [address] [place] [address] 915925 Assigned Gastroenterology Provider 11/01/23 Neil Kent MD [address] 074530 Dermatology 11/02/23 [place] [address] [place] [address] Neurological Surgery 12/26/23 Audrey Waite PA-C 500 [place] [address] Physician Reel Worker Dermatology 02/28/24 Valery Veronica PA-C [address] [address] Physician Reel Worker Dermatology 04/10/24 Herminia Hatch MD [address] [place] [address] [id number] Assigned Rheumatology Provider 07/02/24 documented as of this encounter
--- OUTSIDE RECORDS SUMMARY | 2024-08-28 19:07 | XMS_ITS | Encounter Summary ---
Author Organization [place] Address [address] [place] [address] Care Team Providers Care Telemarketing Supervisor Name Role Phone Lita Oseguera Unavailable Unavailable Rakesh Cid PA-C Unavailable Marija Edgar APRN AUTOMOTIVE SHOP FOREMAN Primary Care Provider + Chanelle Mccann APRN CN Unavailab le Lesley Guillermo CHW Unavailable [phone] Kyara De La Fuente RN Unavailable [phone] Marija Edgar APRN [facility] Unavailable Mynor Broussard MD Unavailable [phone] Keisha Dotson MD Unavailable Mary Mejia Unavailable Unavailable Stacey Briones CRUSHER FOREMAN Unavailable [phone] Lesley Guillermo CHW Unavailable [phone] Mary Mejia Unavailable Unavailable Lita Oseguera Unavailable Unavailable Galo Burrell MD Unavailable Unavailable Cristina Wood Unavailable Lesley Guillermo CHW Unavailable [phone] Meredith Bedoya Unavailable Unavailable Cristina Wood Unavailable Diana Desir [facility] Unavailable [phone] Rain Galaviz PA-C Unavailable Summer Lara MD Unavailable [phone] Summer Lara MD Unavailable [phone] Summer Lara MD Unavailable [phone] Tavia Wyatt MD Unavailable [phone] Johnny Murillo MD Unavailable +1- Erica Farrell APRN AUTOMOTIVE SHOP FOREMAN Unavailable + Teresita Bean [facility] Unavailable Tavia Wyatt MD Unavailable [phone] Diana Desir [facility] Unavailable [phone] Rich Barrett MD Unavailable [phone] Neil Kent MD Unavailable Roney Story DPM Unavailable Erica Farrell APRN AUTOMOTIVE SHOP FOREMAN Unavailable + Diana Desir [facility] Unavailable [phone] FrankieJelena OD Unavailable Galo Burrell MD Unavailable Unavailable Livan Sharif MD Unavailable + Livan Sharif MD Unavailable + Catherine Cm MD Unavailable + Valery Veronica PA-C Unavailable [phone] Catherine Cm MD Unavailable + Johnny Murillo MD Unavailable +1- Brea Quinn APRN AUTOMOTIVE SHOP FOREMAN Unavailable +[phone] [place], Brea P WIRELESS MANAGER AUTOMOTIVE SHOP FOREMAN Unavailable Jose Francisco Johnson MD Unavailable Livan Sharif MD Unavailable Catherine Cm MD Unavailable + Sydnie Martinez RN Unavailable Unavailable Alfonso Renteria MD Unavailable [phone] Esha Grimm PA-C Primary Care Provider Cheng Todd PA-C Unavailable Radha Lomeli WIRELESS MANAGER AUTOMOTIVE SHOP FOREMAN Unavailable Jelena David OD Unavailable Pao Joseph RN Unavailable Unavailable Esha Grimm PA-C Unavailable [phone] Valery Veronica PA-C Unavailable Rey Tay MD Unavailable Rocky Zepeda DO Unavailable Philip Dumont MD Unavailable Meredith Carrera PA-C Unavailable Neil Kent MD Unavailable Juan Pablo Emmanuel MD Unavailable [phone] Audrey Waite PA-C Unavailable [phone] Valery Veronica PA-C Unavailable [phone] Herminia Hatch MD Unavailable Encounter Details Date Type Department Care Team (Late st Contact Info) Description 06/05/2020 [facility] [address] [address] Marija Edgar APRN AUTOMOTIVE SHOP FOREMAN [address] [place], [place] [address] Social History [...] PM CDT Legal Sex Female 4:13 AM MAKE UP OPERATOR HELPER Gender Identity Female 03/02/2021 5:45 PM CDT Sexual Orientation Straight 02/28/2020 12 :51 AM CDT COVID-19 Exposure Response Date Recorded In the last month, have you been in contact with someone who was confirmed or suspected to have Coronavirus / COVID-19? No / Unsure 06/04/2020 10:30 AM MAKE UP OPERATOR HELPER documented as of this encounter Miscellaneous Notes * Telephone Encounter - Marija Edgar APRN CNP - 06/09/2020 9:38 AM MAKE UP OPERATOR HELPER Those referrals have been placed. The mental health attempted call but patient did not answer. Please have patient check voicemail's or await one further follow-up call. They will call her to set up Holter monitor. Thank you Marija Edgar APRN CNP on 06/09/2020 at 9:40 AM UP OPERATOR HELPER documented in this encounter Plan of Treatment Upcoming Encounters Date Type Department Care Team (Late st Contact Info) Description 10/23/2024 9:30 AM CDT Office Visit [facility] [address] [place] [address], [address] [place] [address] [place] [address] [address] [place] [address] Johnny Penn MD [address] [facility] [place] [address] documented as of this encounter Visit Diagnoses Not on filedocumented in this encounter Additional Health Concerns Infection Onset Date Last Indicated Resolved Time Rule Out COVID-19 07/30/2020 07/30/2020 07/30/2020 7:11 PM MAKE UP OPERATOR HELPER Rule Out COVID-19 08/30/2020 08/30/2020 08/30/2020 5:05 PM MAKE UP OPERATOR HELPER Rule Out COVID-19 09/24/2020 09/24/2020 09/24/2020 9:24 AM CDT Rule Out COVID-19 11/05/2020 11/05/2020 11/06/2020 1:09 PM CDT Rule Out COVID-19 05/11/2021 05/11/2021 05/13/2021 10:18 AM CDT Rule Out COVID-19 07/13/2021 07/13/2021 07/14/2021 3:04 PM MAKE UP OPERATOR HELPER Rule Out COVID-19 07/18/2021 07/18/2021 07/20/2021 1:56 PM MAKE UP OPERATOR HELPER COVID-19 07/18/2021 07/18/2021 08/08/2021 11:3 9 PM MAKE UP OPERATOR HELPER Rule Out COVID-19 12/18/2021 12/18/2021 12/19/2021 11:34 AM CDT Rule Out COVID-19 02/24/2022 02/24/2022 02/25/2022 1:08 PM CDT Rule Out COVID-19 04/26/2022 04/26/2022 04/26/2022 6:47 AM CDT Rule Out COVID-19 05/17/2022 05/17/2022 05/17/2022 10:20 PM MAKE UP OPERATOR HELPER Rule Out COVID-19 06/09/2022 06/09/2022 06/09/2022 9:35 AM MAKE UP OPERATOR HELPER COVID-19 06/09/2022 06/09/2022 06/30/2022 11:4 1 PM MAKE UP OPERATOR HELPER Rule Out COVID-19 11/10/2022 11/10/2022 11/11/2022 12:17 PM CDT Rule Out COVID-19 03/07/2023 03/07/2023 03/07/2023 1:20 PM CDT Rule Out COVID-19 12/26/2023 12/26/2023 12/26/2023 9:50 AM CDT Rule Out COVID-19 04/09/2024 04/09/2024 04/10/2024 6:48 PM CDT Assessment Noted Time PHQ-9 Depression Total Score: 9 06/04/20 10:35 AM MAKE UP OPERATOR HELPER documented as of this encounter Care Teams Telemarketing Supervisor Relationship Specialty Start Date End Date Marija Edgar APRN AUTOMOTIVE SHOP FOREMAN [address] [place] [address] PCP - General Nurse Practitioner 04/30/20 04/14/23 Esha Grimm PA-C [address] [place] [phone] PCP - General Family Medicine 05/04/23 Lita Oseguera Personal Advocate & Liaison (PAL) 02/28/20 03/27/23 Rakesh Cid PA-C [address] [place] [address] Assigned PCP 03/02/20 06/07/20 Chanelle Mccann APRN CNM [address] [address] Assigned OBGYN Provider 05/02/2005/09 Lesley Guillermo CHW Community Health Worker 05/30/2005/12 Kyara De La Fuente, RN Specialty Search Marketing Analyst Neurology 06/04/20 03/05/21 Marija Edgar APRN AUTOMOTIVE SHOP FOREMAN [address] [place] [address] Assigned PCP 06/08/20 04/29/23 Mynor Broussard MD [address] [address] Assigned Surgical Provider 06/01/20 11/28/21 Keisha Dotson MD [address] [place] [address] Assigned Neuroscience Provider 06/04/20 04/01/23 Mary Mejia Financial Resource Worker 08/07/20 08/21/20 Stacey Briones, [facility] Lead Search Marketing Analyst Primary Care - CC 08/11/2012/30 Lesley Guillermo, [facility] Community Health Worker 08/11/2010/01 Mary Mejia Financial Resource Worker 09/02/20 10/06/20 Lita Oseguera Personal Advocate & Liaison (PAL) Family Medicine 09/10/20 09/21/20 Galo Burrell MD Assigned Heart and Vascular Provider 10/05/20 04/02/22 Cristina Wood Financial Resource Worker 10/07/20 10/14/20 Lesley Guillermo, [facility] Community Health Worker 10/23/2012/30 Meredith Bedoya Financial Resource Worker 10/23/20 11/23/20 Cristina Wood Financial Resource Worker 02/09/21 02/09/21 Diana Desir, [facility] [address] [place] [address] Pharmacist Pharmacist 04/17/21 Rain Galaviz PA-C [address] [place] [address] [place] [id number] Physician Manufacturing Laborer Dermatology 04/28/21 Summer Lara MD [address] [place] [address] Assigned OBGYN Provider 05/10/2105/23 Summer Lara MD [address] [place] [address] 316294 Assigned OBGYN Provider 05/31/21 Summer Lara MD [address] [place] [address] Assigned OBGYN Provider 05/24/2105/30 Tavia Wyatt MD [address] [place] [address] [place], [place] [phone] Dermatology 07/14/21 Johnny Murillo MD [address] [place] [address] Assigned Musculoskeletal Provider 08/30/21 03/17/22 Erica Farrell APRN AUTOMOTIVE SHOP FOREMAN [address] [facility] [address] [place] [phone] Nurse Practitioner Cardiovascular Disease 09/09/21 Teresita Bean, [facility] [address] [place] [address] Pharmacist Pharmacist 09/24/21 09/29/21 Tavia Wyatt MD [address] [place] [address] Assigned Surgical Provider 11/29/21 05/07/22 Diana Desir, [facility] [address] [place] [address] Assigned MTM Pharmacist 01/02/22 Rich Barrett MD [address] [phone] Physician Ophthalmology 01/21/22 Neil Kent MD [address] [place], [place] [address] Dermatology 02/24/22 Roney Story DPM [address] [facility] [address] [place], [place] 0[address] Assigned Musculoskeletal Provider 03/20/22 08/13/22 Erica Farrell APRN AUTOMOTIVE SHOP FOREMAN [address] [place] [address] Assigned Heart and Vascular Provider 04/03/22 04/16/22 Diana Desir, [facility] [address] [place] [address] Assigned MTM Pharmacist 04/07/22 Jelena David OD [address] [facility] [place] [address] Assigned Surgical Provider 05/08/22 10/08/22 Galo Burrell MD Assigned Heart and Vascular Provider 04/17/22 06/11/22 Livan Sharif MD [address] [place] [address] Cardiovascular Disease 05/14/22 Livan Sharif MD [address] [place] [address] Assigned Heart and Vascular Provider 06/12/22 07/23/22 Catherine Cm MD [address] [place] [address] Cardiovascular Disease 07/21/22 Valery Veronica, PA-C [address] [place] [place] [address] [phone] Physician Manufacturing Laborer Dermatology 07/21/22 Catherine Cm MD [address] [place] [address] Assigned Heart and Vascular Provider 07/24/22 11/05/22 Johnny Murillo MD [facility] [address] [place] [address] [phone] Assigned Musculoskeletal Provider 08/14/22 10/08/22 Brea Quinn APRN AUTOMOTIVE SHOP FOREMAN [address] [place] [address]36555 Nurse Practitioner Dermatology 09/21/22 Brea Quinn APRN AUTOMOTIVE SHOP FOREMAN [address] [place] [address] Assigned Surgical Provider 10/09/22 05/01/24 [place] [address] [place] [address] Assigned Musculoskeletal Provider 10/09/22 05/01/24 Livan Sharif MD [address] [facility] [address] [place] [phone] Assigned Heart and Vascular Provider 11/06/22 11/12/22 Catherine Cm MD [address] [facility] [place] [address] Assigned Heart and Vascular Provider 11/13/22 05/27/23 Sydnie Martinez, RN Personal Advocate & Liaison (PAL) Family Medicine 03/28/23 07/31/23 Alfonso Renteria MD [address] [facility] [address] [place] [address] Assigned Neuroscience Provider 04/02/23 Cheng Todd PA-C [address] [place] [address] Assigned PCP 04/30/23 07/15/23 Radha Lomeli APRN AUTOMOTIVE SHOP FOREMAN [address] [place] [address] Assigned Heart and Vascular Provider 05/28/23 Jelena David OD [address] [place] [address] MD Ophthalmology 06/15/23 Pao Joseph, RN Personal Advocate & Liaison (PAL) Nurse 08/01/23 11/07/23 Esha Grimm PA-C [address] [place] [phone] Assigned PCP 07/16/23 Valery Veronica PA-C [address] [place] [place] [address] 855745 Physician Manufacturing Laborer Dermatology 09/19/23 Rey Tay MD [address] [place] [address] 457265 MD Gastroenterology 09/20/23 Rocky Zepeda DO [address] [place] [address] 247915 Physician Gastroenterology 09/20/23 Philip Dumont MD [address] [place] [address] 067275 Physician Ophthalmology 09/22/23 Meredith Carrera PA-C [address] [place] [address] Assigned Gastroenterology Provider 11/01/23 Neil Kent MD [address] [address] Dermatology 11/02/23 [place] [address] [place] [address] Neurological Surgery 12/26/23 Audrey Waite PA-C [address] [place] [address] Physician Manufacturing Laborer Dermatology 02/28/24 Valery Veronica PA-C [id number] [place] [address] Physician Manufacturing Laborer Dermatology 04/10/24 Herminia Hatch MD [address] [place] [address] [phone] Assigned Rheumatology Provider 07/02/24 documented as of this encounter
--- OUTSIDE RECORDS SUMMARY | 2024-08-28 19:07 | XMS_ITS | Encounter Summary ---
Author Organization [facility] Address [address] [place] [address] Care Team Providers Care Athletic Shoe Designer Name Role Phone Lita Oseguera Unavailable Unavailable Rakesh Cid PA-C Unavailable [phone] Marija Edgar APRN MEDICAL DIRECTOR OF HOSPICE Primary Care Provider + Chanelle Mccann APRN CN Unavailab le Lesley Guillermo CHW Unavailable [phone] Kyara De La Fuente RN Unavailable [phone] Marija Edgar APRN [facility] Unavailable [phone] Mynor Broussard MD Unavailable [phone] Keisha Dotson MD Unavailable Mary Mejia Unavailable Unavailable Stacey Briones WIRE GALVANIZER Unavailable [phone] Lesley Guillermo CHW Unavailable [phone] Mary Mejia Unavailable Unavailable Lita Oseguera Unavailable Unavailable Galo Burrell MD Unavailable Unavailable Cristina Wood Unavailable Lesley Guillermo CHW Unavailable [phone] Meredith Bedoya Unavailable Unavailable Cristina Wood Unavailable Diana Desir [facility] Unavailable [phone] Rain Galaviz PA-C Unavailable Summer Lara MD Unavailable Summer Lara MD Unavailable [phone] Summer Lara MD Unavailable [phone] Tavia Wyatt MD Unavailable [phone] Johnny Murillo MD Unavailable +[phone]- Erica Farrell APRN MEDICAL DIRECTOR OF HOSPICE Unavailable + Teresita Bean [facility] Unavailable Tavia Wyatt MD Unavailable [phone] Diana Desir [facility] Unavailable [phone] Rich Barrett MD Unavailable [phone] Neil Kent MD Unavailable Roney Story DPM Unavailable Erica Farrell APRN MEDICAL DIRECTOR OF HOSPICE Unavailable + Diana Desir [facility] Unavailable [phone] FrankieJelena OD Unavailable Galo Burrell MD Unavailable Unavailable Livan Sharif MD Unavailable + Livan Sharif MD Unavailable + Catherine Cm MD Unavailable + Valery Veronica PA-C Unavailable [phone] Catherine Cm MD Unavailable + Johnny Murillo MD Unavailable +1- Brea Quinn APRN MEDICAL DIRECTOR OF HOSPICE Unavailable [phone] [place], Brea P [employer] MEDICAL DIRECTOR OF HOSPICE Unavailable Jose Francisco Johnson MD Unavailable Livan Sharif MD Unavailable Catherine Cm MD Unavailable + Sydnie Martinez RN Unavailable Unavailable Alfonso Renteria MD Unavailable [phone] Esha Grimm PA-C Primary Care Provider Cheng Todd PA-C Unavailable Radha Lomeli [employer] MEDICAL DIRECTOR OF HOSPICE Unavailable Jelena David OD Unavailable Pao Joseph RN Unavailable Unavailable Esha Grimm PA-C Unavailable [phone] Valery Veronica PA-C Unavailable Rey Tay MD Unavailable Rocky Zepeda DO Unavailable Philip Dumont MD Unavailable Meredith Carrera PA-C Unavailable Neil Kent MD Unavailable Juan Pablo Emmanuel MD Unavailable Audrey Waite PA-C Unavailable [phone] Valery Veronica PA-C Unavailable Herminia Hatch MD Unavailable Encounter Details Date Type Department Care Team (Late st Contact Info) Description 05/23/2020 [facility] [address] [address] Marija Edgar APRN MEDICAL DIRECTOR OF HOSPICE [address] [place], [place] [address] Social History [...] PM CDT Legal Sex Female 4:13 AM MACHINERY CLEANER Gender Identity Female 03/02/2021 5:45 PM CDT Sexual Orientation Straight 02/28/2020 12 :51 AM CDT COVID-19 Exposure Response Date Recorded In the last month, have you been in contact with someone who was confirmed or suspected to have Coronavirus / COVID-19? No / Unsure 05/12/2020 9:03 AM MACHINERY CLEANER documented as of this encounter Plan of Treatment Upcoming Encounters Date Type Department Care Team (Late st Contact Info) Description 10/23/2024 9:30 AM CDT Office Visit [facility] Neurology [address], [address] [place] [address] [place] [address] [place] [address] Johnny Penn MD [address] [facility] [place] [id number] documented as of this encounter Visit Diagnoses Not on filedocumented in this encounter Additional Health Concerns Infection Onset Date Last Indicated Resolved Time Rule Out COVID-19 07/30/2020 07/30/2020 07/30/2020 7:11 PM MACHINERY CLEANER Rule Out COVID-19 08/30/2020 08/30/2020 08/30/2020 5:05 PM MACHINERY CLEANER Rule Out COVID-19 09/24/2020 09/24/2020 09/24/2020 9:24 AM CDT Rule Out COVID-19 11/05/2020 11/05/2020 11/06/2020 1:09 PM CDT Rule Out COVID-19 05/11/2021 05/11/2021 05/13/2021 10:18 AM CDT Rule Out COVID-19 07/13/2021 07/13/2021 07/14/2021 3:04 PM MACHINERY CLEANER Rule Out COVID-19 07/18/2021 07/18/2021 07/20/2021 1:56 PM MACHINERY CLEANER COVID-19 07/18/2021 07/18/2021 08/08/2021 11:3 9 PM MACHINERY CLEANER Rule Out COVID-19 12/18/2021 12/18/2021 12/19/2021 11:34 AM CDT Rule Out COVID-19 02/24/2022 02/24/2022 02/25/2022 1:08 PM CDT Rule Out COVID-19 04/26/2022 04/26/2022 04/26/2022 6:47 AM CDT Rule Out COVID-19 05/17/2022 05/17/2022 05/17/2022 10:20 PM MACHINERY CLEANER Rule Out COVID-19 06/09/2022 06/09/2022 06/09/2022 9:35 AM MACHINERY CLEANER COVID-19 06/09/2022 06/09/2022 06/30/2022 11:4 1 PM MACHINERY CLEANER Rule Out COVID-19 11/10/2022 11/10/2022 11/11/2022 12:17 PM CDT Rule Out COVID-19 03/07/2023 03/07/2023 03/07/2023 1:20 PM CDT Rule Out COVID-19 12/26/2023 12/26/2023 12/26/2023 9:50 AM CDT Rule Out COVID-19 04/09/2024 04/09/2024 04/10/2024 6:48 PM CDT Assessment Noted Time PHQ-9 Depression Total Score: 6 08/28/19 21 7:05 AM MACHINERY CLEANER documented as of this encounter Care Teams Athletic Shoe Designer Relationship Specialty Start Date End Date Marija Edgar APRN MEDICAL DIRECTOR OF HOSPICE [address] [place] [address] PCP - General Nurse Practitioner 04/30/20 04/14/23 Esha Grimm PA-C [address] [place] [phone] PCP - General Family Medicine 05/04/23 Lita Oseguera Personal Advocate & Liaison (PAL) 02/28/20 03/27/23 Rakesh Cid PA-C [address] [place] [address] Assigned PCP 03/02/20 06/07/20 Chanelle Mccann APRN CNM [address] [address] [address] [place] [address] Assigned OBGYN Provider 05/02/2005/09 Lesley Guillermo, CHW Community Health Worker 05/30/2005/12 Kyara De La Fuente, RN Specialty Director Product Management Neurology 06/04/20 03/05/21 Marija Edgar APRN MEDICAL DIRECTOR OF HOSPICE [address] [place] [address] Assigned PCP 06/08/20 04/29/23 Mynor Broussard MD [address] [facility] [address] [place], [place] [address] Assigned Surgical Provider 06/01/20 11/28/21 Keisha Dotson MD [address] [place], [place] 2934[address] Assigned Neuroscience Provider 06/04/20 04/01/23 Mary Mejia Financial Resource Worker 08/07/20 08/21/20 Stacey Briones, [facility] Lead Director Product Management Primary Care - CC 08/11/2012/30 Lesley Guillermo, [facility] Community Health Worker 08/11/2010/01 NikiatimothyAditiMary Financial Resource Worker 09/02/20 10/06/20 Lita Oseguera Personal Advocate & Liaison (PAL) Family Medicine 09/10/20 09/21/20 Galo Burrell MD Assigned Heart and Vascular Provider 10/05/20 04/02/22 Cristina Wood Financial Resource Worker 10/07/20 10/14/20 Lesley Guillermo, [facility] Community Health Worker 10/23/2012/30 Meredith Bedoya Financial Resource Worker 10/23/20 11/23/20 Cristina Wood Financial Resource Worker 02/09/21 02/09/21 Diana Desir, [facility] [address] [place], [place] [phone] Pharmacist Pharmacist 04/17/21 Rain Galaviz PA-C [address] [place] [address] DR [facility] [place] [phone] Physician Oyster Preparer Dermatology 04/28/21 Summer Lara MD [address] [place] [address] Assigned OBGYN Provider 05/10/2105/23 Summer Lara MD [address] [place] [address] Assigned OBGYN Provider 05/31/21 Summer Lara MD [address] [place] [address] Assigned OBGYN Provider 05/24/2105/30 Tavia Wyatt MD [address] [place], [place] [address] Dermatology 07/14/21 Johnny Murillo MD [address] [place] [address] Assigned Musculoskeletal Provider 08/30/21 03/17/22 Erica Farrell APRN MEDICAL DIRECTOR OF HOSPICE [address] [facility] [address] [place] [address] Nurse Practitioner Cardiovascular Disease 09/09/21 Teresita Bean, [facility] [address] [place] [phone] Pharmacist Pharmacist 09/24/21 09/29/21 Tavia Wyatt MD [address] [place], [place] [phone] Assigned Surgical Provider 11/29/21 05/07/22 Diana Desir, [facility] [address] [place] [address] Assigned MTM Pharmacist 01/02/22 Rich Barrett MD [address] [facility] [address] [place] [address] Physician Ophthalmology 01/21/22 Neil Kent MD [address] [place] [address] Dermatology 02/24/22 Roney Story DPM [address] [facility] [address] [place], [place] [address] Assigned Musculoskeletal Provider 03/20/22 08/13/22 Erica Farrell APRN MEDICAL DIRECTOR OF HOSPICE [address] [place] [address] Assigned Heart and Vascular Provider 04/03/22 04/16/22 Diana Desir, [facility] [address] [place] [address] Assigned MTM Pharmacist 04/07/22 Jelena David OD [address] [place] [address] Assigned Surgical Provider 05/08/22 10/08/22 Galo Burrell MD Assigned Heart and Vascular Provider 04/17/22 06/11/22 Livan Sharif MD [address] [place] [address] Cardiovascular Disease 05/14/22 Livan Sharif MD [address] [place] [address] Assigned Heart and Vascular Provider 06/12/22 07/23/22 Catherine Cm MD [address] [place] [place] [phone] [place] [address] Cardiovascular Disease 07/21/22 Valery Veronica, PA-C [address] [place] [address] Physician Oyster Preparer Dermatology 07/21/22 Catherine Cm MD [address] [address] Assigned Heart and Vascular Provider 07/24/22 11/05/22 Johnny Murillo MD [address] [place] [address] Assigned Musculoskeletal Provider 08/14/22 10/08/22 Brea Quinn APRN MEDICAL DIRECTOR OF HOSPICE [address] [place] [address] Nurse Practitioner Dermatology 09/21/22 Brea Quinn APRN MEDICAL DIRECTOR OF HOSPICE [address] [place] [address] Assigned Surgical Provider 10/09/22 05/01/24 [place] [address] [place] [place] [address] Assigned Musculoskeletal Provider 10/09/22 05/01/24 Livan Sharif MD [address], [facility] [address] [place], [place] [address] Assigned Heart and Vascular Provider 11/06/22 11/12/22 Catherine Cm MD [address] [place] [address] Assigned Heart and Vascular Provider 11/13/22 05/27/23 Sydnie Martinez RN Personal Advocate & Liaison (PAL) Family Medicine 03/28/23 07/31/23 Alfonso Renteria MD [address] [facility] 200 [place] [address] Assigned Neuroscience Provider 04/02/23 Cheng Todd PA-C [address] [place] [address] Assigned PCP 04/30/23 07/15/23 Radha Lomeli APRN MEDICAL DIRECTOR OF HOSPICE [address] [place] [address] Assigned Heart and Vascular Provider 05/28/23 Jelena David OD [facility] [place] [address] Ophthalmology 06/15/23 Pao Joseph, VJ Personal Advocate & Liaison (PAL) Nurse 08/01/23 11/07/23 Esha Grimm PA-C [address] [place] [phone] Assigned PCP 07/16/23 Valery Veronica PA-C [address] [place] [address] Physician Oyster Preparer Dermatology 09/19/23 Rey Tay MD [address] [place] [address] MD Gastroenterology 09/20/23 Rocky Zepeda DO [address] [place] [address] Physician Gastroenterology 09/20/23 Philip Dumont MD [address] [place] [address] Physician Ophthalmology 09/22/23 Meredith Carrera PA-C [address] [place] [address] Assigned Gastroenterology Provider 11/01/23 Neil Kent MD [address] [address] Dermatology 11/02/23 [place] [address] [place] [address] [address] Neurological Surgery 12/26/23 Audrey Waite PA-C [address] [place] [address] Physician Oyster Preparer Dermatology 02/28/24 Valery Veronica PA-C [id number] [place] [address] Physician Oyster Preparer Dermatology 04/10/24 Herminia Hatch MD [address] [place] [address] Assigned Rheumatology Provider 07/02/24 documented as of this encounter
--- OUTSIDE RECORDS SUMMARY | 2024-08-28 19:07 | XMS_ITS | Encounter Summary ---
Author Organization [facility] Address [address] [place] [address] Care Team Providers Care Vice President Fixed Income Name Role Phone Lita Oseguera Unavailable Unavailable Rakesh Cid PA-C Unavailable Marija Edgar APRN [employer] LIEUTENANT Primary Care Provider + Chanelle Mccann APRN CN Unavailab le Lesley Guillermo CHW Unavailable [phone] Kyara De La Fuente RN Unavailable [phone] Marija Edgar APRN [facility] Unavailable [phone] Mynor Broussard MD Unavailable [phone] Keisha Dotson MD Unavailable [phone] Mary Mejia Unavailable Unavailable Stacey Briones CONTINUOUS IMPROVEMENT FACILITATOR Unavailable [phone] Lesley Guillermo CHW Unavailable [phone] Mary Mejia Unavailable Unavailable Lita Oseguera Unavailable Unavailable Galo Burrell MD Unavailable Unavailable Cristina Wood Unavailable Lesley Guillermo CHW Unavailable [phone] Meredith Bedoya Unavailable Unavailable Cristina Wood Unavailable Diana Desir [facility] Unavailable [phone] Rain Galaviz PA-C Unavailable Summer Lara MD Unavailable [phone] Summer Lara MD Unavailable [phone] Summer Lara MD Unavailable [phone] Tavia Wyatt MD Unavailable [phone] Johnny Murillo MD Unavailable +1- Erica Farrell APRN [employer] L[employer]ENANT Unavailable + Teresita Bean [facility] Unavailable Tavia Wyatt MD Unavailable [phone] Diana Desir [facility] Unavailable [phone] Rich Barrett MD Unavailable [phone] Neil Kent MD Unavailable Roney Story DPM Unavailable Erica Farrell APRN [employer]ENANT Unavailable + Diana Desir [facility] Unavailable [phone] FrankieJelena OD Unavailable Galo Burrell MD Unavailable Unavailable Livan Sharif MD Unavailable + Livan Sharif MD Unavailable + Catherine Cm MD Unavailable + Valery Veronica PA-C Unavailable [phone] Catherine Cm MD Unavailable + Johnny Murillo MD Unavailable +1- Brea Quinn APRN [employer] Unavailable +1- [place], Brea P JAMMER OPERATOR [employer]UTENANT Unavailable Jose Francisco Johnson MD Unavailable Livan Sharif MD Unavailable Catherine Cm MD Unavailable + Sydnie Martinez RN Unavailable Unavailable Alfonso Renteria MD Unavailable [phone] Esha Grimm PA-C Primary Care Provider Cheng Todd PA-C Unavailable LomeliRadha JAMMER OPERATOR [employer] Unavailable Jelena David OD Unavailable Pao Joseph RN Unavailable Unavailable Esha Grimm PA-C Unavailable [phone] Valery Veronica PA-C Unavailable Rey Tay MD Unavailable Rocky Zepeda DO Unavailable Philip Dumont MD Unavailable [phone] Meredith Carrera PA-C Unavailable Neil Kent MD Unavailable Juan Pablo Emmanuel MD Unavailable [phone] Audrey Waite PA-C Unavailable [phone] Valery Veronica PA-C Unavailable Herminia Hatch MD Unavailable Encounter Details Date Type Department Care Team (Late st Contact Info) Description 05/16/[address] [facility] [id number] [place] [phone] Jerome Ferrell, RN Social History Tobacco [...] PM CDT Legal Sex Female 4:13 AM ADVERTISING ANALYST Gender Identity Female 03/02/2021 5:45 PM CDT Sexual Orientation Straight 02/28/2020 12 :51 AM CDT COVID-19 Exposure Response Date Recorded In the last month, have you been in contact with someone who was confirmed or suspected to have Coronavirus / COVID-19? No / Unsure 05/12/2020 9:03 AM ADVERTISING ANALYST documented as of this encounter Plan of Treatment Upcoming Encounters Date Type Department Care Team (Late st Contact Info) Description 10/23/2024 9:30 AM CDT Office Visit [facility] Neurology [address], [address] [place] [address] [place] [address] [address]84[address] Johnny Penn MD [address] [place] [address] documented as of this encounter Visit Diagnoses Not on filedocumented in this encounter Additional Health Concerns Infection Onset Date Last Indicated Resolved Time Rule Out COVID-19 07/30/2020 07/30/2020 07/30/2020 7:11 PM ADVERTISING ANALYST Rule Out COVID-19 08/30/2020 08/30/2020 08/30/2020 5:05 PM ADVERTISING ANALYST Rule Out COVID-19 09/24/2020 09/24/2020 09/24/2020 9:24 AM CDT Rule Out COVID-19 11/05/2020 11/05/2020 11/06/2020 1:09 PM CDT Rule Out COVID-19 05/11/2021 05/11/2021 05/13/2021 10:18 AM CDT Rule Out COVID-19 07/13/2021 07/13/2021 07/14/2021 3:04 PM ADVERTISING ANALYST Rule Out COVID-19 07/18/2021 07/18/2021 07/20/2021 1:56 PM ADVERTISING ANALYST COVID-19 07/18/2021 07/18/2021 08/08/2021 11:3 9 PM ADVERTISING ANALYST Rule Out COVID-19 12/18/2021 12/18/2021 12/19/2021 11:34 AM CDT Rule Out COVID-19 02/24/2022 02/24/2022 02/25/2022 1:08 PM CDT Rule Out COVID-19 04/26/2022 04/26/2022 04/26/2022 6:47 AM CDT Rule Out COVID-19 05/17/2022 05/17/2022 05/17/2022 10:20 PM ADVERTISING ANALYST Rule Out COVID-19 06/09/2022 06/09/2022 06/09/2022 9:35 AM ADVERTISING ANALYST COVID-19 06/09/2022 06/09/2022 06/30/2022 11:4 1 PM ADVERTISING ANALYST Rule Out COVID-19 11/10/2022 11/10/2022 11/11/2022 12:17 PM CDT Rule Out COVID-19 03/07/2023 03/07/2023 03/07/2023 1:20 PM CDT Rule Out COVID-19 12/26/2023 12/26/2023 12/26/2023 9:50 AM CDT Rule Out COVID-19 04/09/2024 04/09/2024 04/10/2024 6:48 PM CDT Assessment Noted Time PHQ-9 Depression Total Score: 020 2:40 PM CDT documented as of this encounter Care Teams Vice President Fixed Income Relationship Specialty Start Date End Date Marija Edgar APRN [employer] [address] [address] PCP - General Nurse Practitioner 04/30/20 04/14/23 Esha Grimm PA-C [address] [place] [phone] PCP - General Family Medicine 05/04/23 Lita Oseguera Personal Advocate & Liaison (PAL) 02/28/20 03/27/23 Rakesh Cid PA-C [address] [facility] [address] Assigned PCP 03/02/20 06/07/20 Chanelle Mccann APRN CNM [address] [place] [address] 200 [place] [address] Assigned OBGYN Provider 05/02/2005/09 Lesley Guillermo W Community Health Worker 05/30/2005/12 Kyara De La Fuente, RN Specialty Manager Land Neurology 06/04/20 03/05/21 Marija Edgar APRN [employer] [address] [place] [address] Assigned PCP 06/08/20 04/29/23 Mynor Broussard MD 6[address] [facility] 500 [place] [address] Assigned Surgical Provider 06/01/20 11/28/21 Keisha Dotson MD 9 [place] [address] Assigned Neuroscience Provider 06/04/20 04/01/23 Mary Mejia Financial Resource Worker 08/07/20 08/21/20 Stacey Briones, [facility] Lead Manager Land Primary Care - CC 08/11/2012/30 Lesley Guillermo, [facility] Community Health Worker 08/11/2010/01 Mary Mejia Financial Resource Worker 09/02/20 10/06/20 Lita Oseguera Personal Advocate & Liaison (PAL) Family Medicine 09/10/20 09/21/20 Galo Burrell MD Assigned Heart and Vascular Provider 10/05/20 04/02/22 Cristina Wood Financial Resource Worker 10/07/20 10/14/20 Lesley Guillermo, [facility] Community Health Worker 10/23/2012/30 Meredith Bedoya Financial Resource Worker 10/23/20 11/23/20 Cristina Wood Financial Resource Worker 02/09/21 02/09/21 Diana Desir, [facility] [address] [facility] [place] [phone] Pharmacist Pharmacist 04/17/21 Rain Galaviz PA-C [address] [place] [address] [address] [place], [place] [phone] Physician Film Vault Supervisor Dermatology 04/28/21 Summer Lara MD [address] [place] [address] Assigned OBGYN Provider 05/10/2105/23 Summer Lara MD [address] [place] [address] Assigned OBGYN Provider 05/31/21 2 Summer Lara MD [address] [facility] [address] [place], [place] [address] Assigned OBGYN Provider 05/24/2105/30 Tavia Wyatt MD [address] [place], [place] [address] Dermatology 07/14/21 Johnny Murillo MD [address] [place], [place] [address] Assigned Musculoskeletal Provider 08/30/21 03/17/22 Erica Farrlel APRN [employer] 6[address] [facility] [address] [place] [address] Nurse Practitioner Cardiovascular Disease 09/09/21 Teresita Bean [facility] [address] [place], [place] [phone] Pharmacist Pharmacist 09/24/21 09/29/21 Tavia Wyatt MD [address] [place], [place] 442810 Assigned Surgical Provider 11/29/21 05/07/22 Diana Desir, [facility] 3033 [place], [place] 195876 Assigned MTM Pharmacist 01/02/22 Rich Barrett MD [address] [address] Physician Ophthalmology 01/21/22 Neil Kent MD 500 [place] [address] Dermatology 02/24/22 Roney Story DPM [address] [facility] [address] [place], [place] 661117 Assigned Musculoskeletal Provider 03/20/22 08/13/22 Erica Farrell APRN [employer] 1700 [place] [address] Assigned Heart and Vascular Provider 04/03/22 04/16/22 [facility] [address] [place] [address] Assigned MTM Pharmacist 04/07/22 Jelena David OD [address] [facility] [place] [address] Assigned Surgical Provider 05/08/22 10/08/22 Galo Burrell MD Assigned Heart and Vascular Provider 04/17/22 06/11/22 Livan Sharif MD [address] [place] 0445[address] Cardiovascular Disease 05/14/22 Livan Sharif MD [address] [place] [address] Assigned Heart and Vascular Provider 06/12/22 07/23/22 Catherine Cm MD [address] [place] [address] Cardiovascular Disease 07/21/22 Valery Veronica PA-C 909 [place] [address] Physician Film Vault Supervisor Dermatology 07/21/22 Catherine Cm MD [address] [place] 633625 Assigned Heart and Vascular Provider 07/24/22 11/05/22 Johnny Murillo MD [facility] 133994 Assigned Musculoskeletal Provider 08/14/22 10/08/22 Brea Quinn APRN [employer] [address] [place] [address] 076165 Nurse Practitioner Dermatology 09/21/22 Brea Quinn APRN [employer] [address] [place] [address] [place] [address] Assigned Surgical Provider 10/09/22 05/01/24 [place] [address] [place] [address] [place] [address] Assigned Musculoskeletal Provider 10/09/22 05/01/24 Livan Sharif MD [address], [facility] [address] [place] 863155 Assigned Heart and Vascular Provider 11/06/22 11/12/22 Catherine Cm MD [address] [place] [address] Assigned Heart and Vascular Provider 11/13/22 05/27/23 Sydnie Martinez RN Personal Advocate & Liaison (PAL) Family Medicine 03/28/23 07/31/23 Alfonso Renteria MD 5775 [facility] 200 [place], [place] 404126 Assigned Neuroscience Provider 04/02/23 Cheng Todd PA-C [address] [place] [address] [phone] Assigned PCP 04/30/23 07/15/23 Radha Lomeli, JAMMER OPERATOR [employer] LIEUTENANT [address] [place] [address]35 Assigned Heart and Vascular Provider 05/28/23 Jelena David OD 3305 [facility] [place] [address] Ophthalmology 06/15/23 Pao Joseph, VJ Personal Advocate & Liaison (PAL) Nurse 08/01/23 11/07/23 Esha Grimm PA-C [address] [place] [phone] Assigned PCP 07/16/23 Valery Veronica PA-C [address] [place], [place] 973875 Physician Film Vault Supervisor Dermatology 09/19/23 Rey Tay MD 909 [place], [place] 985365 MD Gastroenterology 09/20/23 Rocky Zepeda DO 500 [place] [address] Physician Gastroenterology 09/20/23 Philip Dumont MD 516 [place], [place] 467585 Physician Ophthalmology 09/22/23 Meredith Carrera PA-C 909 [place], [place] 590735 Assigned Gastroenterology Provider 11/01/23 Neil Kent MD [address] [place] [address] 111630 Dermatology 11/02/23 [place] [address] 003347 Neurological Surgery 12/26/23 Audrey Waite PA-C 500 [place] [address] Physician Film Vault Supervisor Dermatology 02/28/24 Valery Veronica PA-C 631451 [address], [place] [address] Physician Film Vault Supervisor Dermatology 04/10/24 Herminia Hatch MD [facility]5 [place] [address] Assigned Rheumatology Provider 07/02/24 documented as of this encounter
--- OUTSIDE RECORDS SUMMARY | 2024-08-28 19:07 | XMS_ITS | Encounter Summary ---
Author Organization [facility] Address [address] [place] [address] Care Team Providers Care Progress Clerk Name Role Phone Diana Desir [facility] Unavailable Rain Galaviz PA-C Unavailable Tavia Wyatt MD Unavailable Erica Farrell APRN PLASTER MACHINE TENDER Unavailable Rich Barrett MD Unavailable [phone] Neil Kent MD Unavailable Diana Desir [facility] Unavailable Livan Sharif MD Unavailable Catherine Cm MD Unavailable + Valeyr Veronica PA-C Unavailable Brea Quinn NIGHT STOCKER PLASTER MACHINE TENDER Unavailable [phone] Brea Quinn NIGHT STOCKER PLASTER MACHINE TENDER Unavailable Jose Francisco Johnson MD Unavailable Alfonso Renteria MD Unavailable [phone] Esha Grimm PA-C Primary Care Provider [phone] Radha Lomeli APRN PLASTER MACHINE TENDER Unavailable Jelena David OD Unavailable Pao Joseph RN Unavailable Unavailable Esha Grimm PA-C Unavailable [phone] Valery Veronica PA-C Unavailable [phone] Rey Tay MD Unavailable Rocky Zepeda DO Unavailable Philip Dumont MD Unavailable [phone] Meredith Carrera PA-C Unavailable [phone] Neil Kent MD Unavailable Juan Pablo Emmanuel MD Unavailable [phone] Audrey Waite PA-C Unavailable [phone] Valery Veronica PA-C Unavailable Herminia Hatch MD Unavailable Encounter Details Date Type Department Care Team (Late st Contact Info) Description 10/24/2023 [facility] Medical Advice [facility] [address] [address] Kenneth Denson Social History Tobacco [...] medical care at [facility]? 1 to 4 times [...] Answer Date Recorded PHQ-2 Score 0 10/25/2023 [facility] [place] of Occupat ional Health - Occupational Stress [...] exercise at this level? 30 min 03/10/2023 [place] Depression Scale Answer Date Recorded [place] Depression Score 5 01/14/2021 Last EPDS [...] PM CDT Legal Sex Female 4:13 AM STONECUTTER APPRENTICE HAND Gender Identity Female 03/02/2021 5:45 PM CDT Sexual Orientation Straight 02/28/2020 12 :51 AM CDT documented as of this encounter Plan of Treatment Upcoming Encounters Date Type Department Care Team (Late st Contact Info) Description 10/23/2024 9:30 AM CDT Office Visit [facility] Neurology [address], [address] [place] [address] [place] [address] [address] 109807 Johnny Penn MD [address] [place] [address] documented as of this encounter Visit Diagnoses Not on filedocumented in this encounter Additional Health Concerns Infection Onset Date Last Indicated Resolved Time Rule Out COVID-19 12/26/2023 12/26/2023 12/26/2023 9:50 AM CDT Rule Out COVID-19 04/09/2024 04/09/2024 04/10/2024 6:48 PM CDT Assessment Noted Time PHQ-9 Depression Total Score: 4 06/20/20 23 8:40 AM STONECUTTER APPRENTICE HAND documented as of this encounter Care Teams Progress Clerk Relationship Specialty Start Date End Date Esha Grimm PA-C [address] [place] [address] PCP - General Family Medicine 05/04/23 Diana Desir, [facility] [address] [place], [place] 9[address] Pharmacist Pharmacist 04/17/21 Rain Galaviz PA-C [address] [place] [address] [address] [place] [address] Physician Push Button Switch Assembler Dermatology 04/28/21 Tavia Wyatt MD [address] [place] [address] [address] [place] [address] [phone] Dermatology 07/14/21 Erica Farrell APRN PLASTER MACHINE TENDER 6405 [facility] [address] [place], [place] 159995 Nurse Practitioner Cardiovascular Disease 09/09/21 Rich Barrett MD [address] 558085 Physician Ophthalmology 01/21/22 Neil Kent MD 500 [place], [place] 666455 Dermatology 02/24/22 Diana Desir, [facility] 3033 [place], [place] 528056 Assigned MTM Pharmacist 04/07/22 Livan Sharif MD [address], [facility] [address] [place] [address] Cardiovascular Disease 05/14/22 Catherine Cm MD [address] [facility] [address] [place] 8[address] Cardiovascular Disease 07/21/22 Valery Veronica, PA-C 909 [place], [place] 719175 Physician Push Button Switch Assembler Dermatology 07/21/22 Brea Quinn APRN PLASTER MACHINE TENDER 500 [place], [place] 218315 Nurse Practitioner Dermatology 09/21/22 Brea Quinn APRN PLASTER MACHINE TENDER [address] [place] [address] 012872 Assigned Surgical Provider 10/09/22 05/01/24 [place] [address] [address] [facility] 300 [place], [place] 887587 Assigned Musculoskeletal Provider 10/09/22 05/01/24 Alfonso Renteria MD 5775 [facility] 200 [place], [place] 465916 Assigned Neuroscience Provider 04/02/23 Radha Lomeli APRN PLASTER MACHINE TENDER 6405 [facility] [address] [address] [place] [address] Assigned Heart and Vascular Provider 05/28/23 Jelena David OD [address]305 [facility] [address] MD Ophthalmology 06/15/23 Pao Joseph, VJ Personal Advocate & Liaison (PAL) Nurse 08/01/23 11/07/23 Esha Grimm PA-C [address] [place] [phone] Assigned PCP 07/16/23 Valery Veronica PA-C [address] [place] [address] 818895 Physician Push Button Switch Assembler Dermatology 09/19/23 Rey Tay MD [address] [place] [address] 613355 Gastroenterology 09/20/23 Rocky Zepeda DO [address] [place] [address] 338735 Physician Gastroenterology 09/20/23 Philip Dumont MD [address] [place] [address] 847305 Physician Ophthalmology 09/22/23 Meredith Carrera PA-C [address] [place] [address] 090955 Assigned Gastroenterology Provider 11/01/23 Neil Kent MD [address] [address] Dermatology 11/02/23 [place] [address] 929957 Neurological Surgery 12/26/23 Audrey Waite PA-C 500 [place] [address] Physician Push Button Switch Assembler Dermatology 02/28/24 Valery Veronica PA-C 019698 [place], [place] [address] Physician Push Button Switch Assembler Dermatology 04/10/24 Herminia Hatch MD [facility]5 [place] [address] Assigned Rheumatology Provider 07/02/24 documented as of this encounter
--- OUTSIDE RECORDS SUMMARY | 2024-08-28 19:07 | XMS_ITS | Encounter Summary ---
Author Organization [facility] Address [address] [place] [address] Care Team Providers Care Peanut Farmer Name Role Phone Lita Oseguera Unavailable Unavailable Marija Edgar APRN SLAG EXPANDER Primary Care Provider + Chanelle Mccann APRN CNM Unavailab le Kyara De La Fuente RN Unavailable [phone] Marija Edgar APRN SLAG EXPANDER Unavailable Mynor Broussard MD Unavailable [phone] Keisha Dotson MD Unavailable Mary Mejia Unavailable Unavailable Stacey Briones WHARF HAND Unavailable [phone] Lesley Guillermo CHW Unavailable Mary Mejia Unavailable Unavailable Lita Oseguera Unavailable Unavailable Galo Burrell MD Unavailable Unavailable Cristina Wood Unavailable Lesley Guillermo CHW Unavailable Meredith Bedoya Unavailable Unavailable Cristina Wood Unavailable Diana Desir [facility] Unavailable [place]uh[place], Rain Lena PA-C Unavailable Summer Lara MD Unavailable [phone] Summer Lara MD Unavailable [phone] Summer Lara MD Unavailable [phone] Tavia Wyatt MD Unavailable [phone] Johnny Murillo MD Unavailable +1- Erica Farrell CADDY PACKER SLAG EXPANDER Unavailable VikasTeresita H Unavailable Tavia Wyatt MD Unavailable [phone] Daina Desir [facility] Unavailable [phone] Rich Barrett MD Unavailable Neil Kent MD Unavailable Roney Story [facility] Unavailable Erica Farrell APRN SLAG EXPANDER Unavailable Diana Desir [facility] Unavailable [phone] Jelena David OD Unavailable Galo Burrell MD Unavailable Unavailable Livan Sharif MD Unavailable Livan Sharif MD Unavailable + Catherine Cm MD Unavailable + Valery Veronica PA-C Unavailable [phone] Catherine Cm MD Unavailable + Johnny Murillo MD Unavailable +1- Brea Quinn CADDY PACKER SLAG EXPANDER Unavailable +1- Brea Quinn CADDY PACKER SLAG EXPANDER Unavailable [phone] Jose Francisco Johnson MD Unavailable Livan Sharif MD Unavailable Catherine Cm MD Unavailable + Sydnie Martinez RN Unavailable Unavailable Alfonso Renteria MD Unavailable [phone] Esha Grimm PA-C Primary Care Provider Cheng Todd PA-C Unavailable ArmaniRadha APRN SLAG EXPANDER Unavailable Jelena David OD Unavailable Pao Joseph RN Unavailable Unavailable Esha Grimm PA-C Unavailable [phone] Valery Veronica PA-C Unavailable Rey Tay MD Unavailable Rocky Zepeda DO Unavailable Philip Dumont MD Unavailable Meredith Carrera PA-C Unavailable Neil Kent MD Unavailable Juan Pablo Emmanuel MD Unavailable Audrey Waite PA-C Unavailable JeremíasValery damon PA-C Unavailable Herminia Hatch MD Unavailable Encounter Details Date Type Department Care Team (Late st Contact Info) Description 07/10/2020 MyC Medical Advice [facility] [place] [address] [place] [address] Mynor Broussard MD [address] [place] [address] [...] PM CDT Legal Sex Female 4:13 AM RECORDS CUSTODIAN Gender Identity Female 03/02/2021 5:45 PM CDT Sexual Orientation Straight 02/28/2020 12 :51 AM CDT COVID-19 Exposure Response Date Recorded In the last month, have you been in contact with someone who was confirmed or suspected to have Coronavirus / COVID-19? No / Unsure 06/24/2020 3:01 PM RECORDS CUSTODIAN documented as of this encounter Plan of Treatment Upcoming Encounters Date Type Department Care Team (Late st Contact Info) Description 10/23/2024 9:30 AM CDT Office Visit [facility] Neurology [address], [address] [place] [address] [place] [address] [place] [address] [phone] Johnny Penn MD [address] [place] [id number] documented as of this encounter Visit Diagnoses Not on filedocumented in this encounter Additional Health Concerns Infection Onset Date Last Indicated Resolved Time Rule Out COVID-19 07/30/2020 07/30/2020 07/30/2020 7:11 PM RECORDS CUSTODIAN Rule Out COVID-19 08/30/2020 08/30/2020 08/30/2020 5:05 PM RECORDS CUSTODIAN Rule Out COVID-19 09/24/2020 09/24/2020 09/24/2020 9:24 AM CDT Rule Out COVID-19 11/05/2020 11/05/2020 11/06/2020 1:09 PM CDT Rule Out COVID-19 05/11/2021 05/11/2021 05/13/2021 10:18 AM CDT Rule Out COVID-19 07/13/2021 07/13/2021 07/14/2021 3:04 PM RECORDS CUSTODIAN Rule Out COVID-19 07/18/2021 07/18/2021 07/20/2021 1:56 PM RECORDS CUSTODIAN COVID-19 07/18/2021 07/18/2021 08/08/2021 11:3 9 PM RECORDS CUSTODIAN Rule Out COVID-19 12/18/2021 12/18/2021 12/19/2021 11:34 AM CDT Rule Out COVID-19 02/24/2022 02/24/2022 02/25/2022 1:08 PM CDT Rule Out COVID-19 04/26/2022 04/26/2022 04/26/2022 6:47 AM CDT Rule Out COVID-19 05/17/2022 05/17/2022 05/17/2022 10:20 PM RECORDS CUSTODIAN Rule Out COVID-19 06/09/2022 06/09/2022 06/09/2022 9:35 AM RECORDS CUSTODIAN COVID-19 06/09/2022 06/09/2022 06/30/2022 11:4 1 PM RECORDS CUSTODIAN Rule Out COVID-19 11/10/2022 11/10/2022 11/11/2022 12:17 PM CDT Rule Out COVID-19 03/07/2023 03/07/2023 03/07/2023 1:20 PM CDT Rule Out COVID-19 12/26/2023 12/26/2023 12/26/2023 9:50 AM CDT Rule Out COVID-19 04/09/2024 04/09/2024 04/10/2024 6:48 PM CDT Assessment Noted Time PHQ-9 Depression Total Score: 9 06/25/20 20 7:04 AM RECORDS CUSTODIAN documented as of this encounter Care Teams Peanut Farmer Relationship Specialty Start Date End Date Marija Edgar APRN CNP PCP - General Nurse Practitioner 04/30/20 04/14/23 Esha Grimm PA-C [address] [place] [phone] PCP - General Family Medicine 05/04/23 Lita Oseguera Personal Advocate & Liaison (PAL) 02/28/20 03/27/23 Chanelle Mccann APRN CNM [address] [address] [address] [place] [address] Assigned OBGYN Provider 05/02/2005/09 Kyara De La Fuente, RN Specialty Advanced Research Programs Director Neurology 06/04/20 03/05/21 Marija Edgar APRN SLAG EXPANDER Assigned PCP 06/08/20 04/29/23 Mynor Broussard MD [address] [facility] [address] [place] [address] Assigned Surgical Provider 06/01/20 11/28/21 Keisha Dotson MD [address] [place] [address] Assigned Neuroscience Provider 06/04/20 04/01/23 Mary Mejia Financial Resource Worker 08/07/20 08/21/20 Stacey Briones, WHARF HAND Lead Advanced Research Programs Director Primary Care - CC 08/11/2012/30 Lesley Guillermo, W Community Health Worker 08/11/2010/01 Mary Mejia Financial Resource Worker 09/02/20 10/06/20 Lita Oseguera Personal Advocate & Liaison (PAL) Family Medicine 09/10/20 09/21/20 Galo Burrell MD Assigned Heart and Vascular Provider 10/05/20 04/02/22 Cristina Wood Financial Resource Worker 10/07/20 10/14/20 Lesley Guillermo, [facility] Community Health Worker 10/23/2012/30 Meredith Bedoya Financial Resource Worker 10/23/20 11/23/20 Cristina Wood Financial Resource Worker 02/09/21 02/09/21 Diana Desir, [facility] [address] [place], [place] [phone] Pharmacist Pharmacist 04/17/21 Rain Galaviz PA-C [address] [place] [address] [address] [place], [place] [phone] Physician Industrial Therapist Dermatology 04/28/21 Summer Lara MD [address] [place] [address] [phone] Assigned OBGYN Provider 05/10/2105/23 Summer Lara MD [address] [place] [address] [phone] Assigned OBGYN Provider 05/31/21 2 Summer Lara MD [address] [place] [address] [phone] Assigned OBGYN Provider 05/24/2105/30 Tavia Wyatt MD [address] [place] [address] [phone] Dermatology 07/14/21 Johnny Murillo MD [address] [facility] [address] [place], [place] [address]704 Assigned Musculoskeletal Provider 08/30/21 03/17/22 Erica Farrell APRN SLAG EXPANDER [address] [facility] [address] [place] [address] Nurse Practitioner Cardiovascular Disease 09/09/21 Teresita Bean [facility] [address] [facility] [address] [place] [phone] Pharmacist Pharmacist 09/24/21 09/29/21 Tavia Wyatt MD [address] [place], [place] [address] Assigned Surgical Provider 11/29/21 05/07/22 [facility] [address] [place], [place] [address]316 Assigned MTM Pharmacist 01/02/22 Rich Barrett MD [address] [facility] [address] [place], [place] [phone] Physician Ophthalmology 01/21/22 Neil Kent MD [address] [place], [place] [phone] Dermatology 02/24/22 Roney Story DPM [address] [facility] [address] [place], [place] [phone] Assigned Musculoskeletal Provider 03/20/22 08/13/22 Erica Farrell APRN SLAG EXPANDER [address] [place] [address] Assigned Heart and Vascular Provider 04/03/22 04/16/22 Diana Desir, [facility] [address] [place] [address] Assigned MTM Pharmacist 04/07/22 Jelena David OD [address] [facility] [place] [address] Assigned Surgical Provider 05/08/22 10/08/22 Galo Burrell MD Assigned Heart and Vascular Provider 04/17/22 06/11/22 Livan Sharif MD [address] [place] [address] Cardiovascular Disease 05/14/22 Livan Sharif MD [address] [place] [address] Assigned Heart and Vascular Provider 06/12/22 07/23/22 Catherine Cm MD [address] [place] [phone] Cardiovascular Disease 07/21/22 Valery Veronica, PAUcheC [address] [place] [address] Physician Industrial Therapist Dermatology 07/21/22 IsCatherine hobbs MD [address] [facility] [place] [address] Assigned Heart and Vascular Provider 07/24/22 11/05/22 Johnny Murillo MD [address] [address]45[address] Assigned Musculoskeletal Provider 08/14/22 10/08/22 Brea Quinn APRN SLAG EXPANDER [address] [place], [place] [phone] Nurse Practitioner Dermatology 09/21/22 Brea Quinn APRN SLAG EXPANDER [address] [facility] [place] [phone] Assigned Surgical Provider 10/09/22 05/01/24 [place] [address] [place] [address] [phone] Assigned Musculoskeletal Provider 10/09/22 05/01/24 Livan Sharif MD [address] [facility] [place] [id number] Assigned Heart and Vascular Provider 11/06/22 11/12/22 Catherine Cm MD [address] [facility] [phone] Assigned Heart and Vascular Provider 11/13/22 05/27/23 Sydnie Martinez RN Personal Advocate & Liaison (PAL) Family Medicine 03/28/23 07/31/23 Alfonso Renteria MD [address] [facility] [address] [place] [address] Assigned Neuroscience Provider 04/02/23 Cheng Todd PA-C [address] [place] [address] Assigned PCP 04/30/23 07/15/23 Radha Lomeli APRN SLAG EXPANDER [address] [facility] [address] [place], [place] [address] Assigned Heart and Vascular Provider 05/28/23 Jelena David OD [address] [facility] [place] [address] Ophthalmology 06/15/23 Pao Joseph, VJ Personal Advocate & Liaison (PAL) Nurse 08/01/23 11/07/23 Esha Grimm PA-C [address] [place] [phone] Assigned PCP 07/16/23 Valery Veronica PA-C [address] [place] [address] [phone] Physician Industrial Therapist Dermatology 09/19/23 Rey Tay MD [address] [place] [address] [phone] Gastroenterology 09/20/23 Rocky Zepeda DO [address] [place] [address] [phone] Physician Gastroenterology 09/20/23 Philip Dumont MD [address] [place] [address] Physician Ophthalmology 09/22/23 Meredith Carrera PA-C [address] [place] [address] Assigned Gastroenterology Provider 11/01/23 Neil Kent MD [address] [address] Dermatology 11/02/23 [place] [address] [place] [address] 868707 Neurological Surgery 12/26/23 Audrey Waite PA-C [address] [place] [address] Physician Industrial Therapist Dermatology 02/28/24 Valery Veronica PA-C [address] [place] [address] Physician Industrial Therapist Dermatology 04/10/24 Herminia Hatch MD [facility] [place] [address] Assigned Rheumatology Provider 07/02/24 documented as of this encounter
--- OUTSIDE RECORDS SUMMARY | 2024-08-28 19:07 | XMS_ITS | Encounter Summary ---
Author Organization [facility] Address [address] [place] [address] Care Team Providers Care Ferry Captain Name Role Phone Rakesh Cid PA-C Unavailable [phone] Rakesh Cid PA-C Primary Care Provider [phone] Lita Oseguera Unavailable Unavailable Rakesh Cid PA-C Unavailable [phone] Isaura Lamar RN Unavailable Unavailable Lita Oseguera Unavailable Unavailable Marija Edgar APRN TREE PLANTER Primary Care Provider + Chanelle Mccann APRN CN Unavailab le Lesley Guillermo CHKamryn Unavailable [phone] Kyara De La Fuente RN Unavailable [phone] Marija Edgar APRN TREE PLANTER Unavailable [phone] Mynor Broussard MD Unavailable Keisha Dotson MD Unavailable [phone] Mary Mejia Unavailable Unavailable Stacey Briones STRIP PICKER Unavailable [phone] Lesley Guillermo CHW Unavailable [phone] Mary Mejia Unavailable Unavailable Lita Oseguera Unavailable Unavailable Galo Burrell MD Unavailable Unavailable Cristina Wood Unavailable Lesley Guillermo [facility] Unavailable Meredith Bedoya Unavailable Unavailable Cristina Wood Unavailable ThangKendrickDiana Stanislav [facility] Unavailable [phone] Rain GalavizC Unavailable Summer Lara MD Unavailable Summer Lara MD Unavailable [phone] Summer Lara MD Unavailable [phone] Tavia Wyatt MD Unavailable [phone] Johnny Murillo MD Unavailable Erica Farrell APRN TREE PLANTER Unavailable Teresita Bean [facility] Unavailable Tavia Wyatt MD Unavailable [phone] [phone] Diana [place] [facility] Unavailable [phone] Rich Barrett MD Unavailable [phone] Neil Kent MD Unavailable Roney Story DPM Unavailable Erica Farrell 2ND PRESSMAN TREE PLANTER Unavailable + Diana Desir [facility] Unavailable [phone] Jelena David OD Unavailable Galo Burrell MD Unavailable Unavailable Livan Sharif MD Unavailable + Livan Sharif MD Unavailable + Catherine Cm MD Unavailable + Valery VeronicaC Unavailable [phone] Catherine Cm MD Unavailable + Johnny Murillo MD Unavailable [phone] Brea Quinn 2ND PRESSMAN TREE PLANTER Unavailable [phone] Brea Quinn 2ND PRESSMAN TREE PLANTER Unavailable [phone] Jose Francisco Johnson MD Unavailable Livan Sharif MD Unavailable Catherine Cm MD Unavailable + Sydnie Martinez RN Unavailable Unavailable Alfonso Renteria MD Unavailable Esha Grimm PA-C Primary Care Provider Cheng Todd PA-C Unavailable Radha Lomeli 2ND PRESSMAN TREE PLANTER Unavailable [phone] Jelena David OD Unavailable [phone] Pao Joseph RN Unavailable Unavailable Esha Grimm PA-C Unavailable [phone] Valery Veronica PA-C Unavailable Rey Tay MD Unavailable Rocky Zepeda DO Unavailable Philip Dumont MD Unavailable Meredith Carrera PA-C Unavailable [phone] Neil Kent MD Unavailable Juan Pablo Emmanuel MD Unavailable Audrey Waite PA-C Unavailable Valery Veronica PA-C Unavailable Herminia Hatch MD Unavailable Reason for Visit * Reason Onset Date Comments Appointment 02/13/2020 Anxiety Encounter Details Date Type Department Care Team (Late st Contact Info) Description 02/13/2020 MyC Medical Advice [address] [address] Rakesh Cid PA-C [address] [place] [address] Appointment (Anxiety) Social History Tobacco Use Types [...] CDT Legal Sex Female 4:13 AM BANKING AND FINANCE INSTRUCTOR Gender Identity Female 03/02/2021 5:45 PM CDT Sexual Orientation Straight 02/28/2020 12 :51 AM CDT documented as of this encounter Miscellaneous Notes * Telephone Encounter - Agatha Forrester RN - 02/15/2020 2:28 PM CDT Pirate Payt message sent to patient to schedule a [...] Description 10/23/2024 9:30 AM CDT Office Visit [facility] Neurology [facility] [address], [address] [place] [address] [place] [address] [place], [place] [id number] Johnny Penn MD [address] [place] [id number] documented as of this encounter Visit Diagnoses Not on filedocumented in this encounter Additional Health Concerns Infection Onset Date Last Indicated Resolved Time Rule Out COVID-19 07/30/2020 07/30/2020 07/30/2020 7:11 PM BANKING AND FINANCE INSTRUCTOR Rule Out COVID-19 08/30/2020 08/30/2020 08/30/2020 5:05 PM BANKING AND FINANCE INSTRUCTOR Rule Out COVID-19 09/24/2020 09/24/2020 09/24/2020 9:24 AM CDT Rule Out COVID-19 11/05/2020 11/05/2020 11/06/2020 1:09 PM CDT Rule Out COVID-19 05/11/2021 05/11/2021 05/13/2021 10:18 AM CDT Rule Out COVID-19 07/13/2021 07/13/2021 07/14/2021 3:04 PM BANKING AND FINANCE INSTRUCTOR Rule Out COVID-19 07/18/2021 07/18/2021 07/20/2021 1:56 PM BANKING AND FINANCE INSTRUCTOR COVID-19 07/18/2021 07/18/2021 08/08/2021 11:3 9 PM BANKING AND FINANCE INSTRUCTOR Rule Out COVID-19 12/18/2021 12/18/2021 12/19/2021 11:34 AM CDT Rule Out COVID-19 02/24/2022 02/24/2022 02/25/2022 1:08 PM CDT Rule Out COVID-19 04/26/2022 04/26/2022 04/26/2022 6:47 AM CDT Rule Out COVID-19 05/17/2022 05/17/2022 05/17/2022 10:20 PM BANKING AND FINANCE INSTRUCTOR Rule Out COVID-19 06/09/2022 06/09/2022 06/09/2022 9:35 AM BANKING AND FINANCE INSTRUCTOR COVID-19 06/09/2022 06/09/2022 06/30/2022 11:4 1 PM BANKING AND FINANCE INSTRUCTOR Rule Out COVID-19 11/10/2022 11/10/2022 11/11/2022 12:17 PM CDT Rule Out COVID-19 03/07/2023 03/07/2023 03/07/2023 1:20 PM CDT Rule Out COVID-19 12/26/2023 12/26/2023 12/26/2023 9:50 AM CDT Rule Out COVID-19 04/09/2024 04/09/2024 04/10/2024 6:48 PM CDT Assessment Noted Time PHQ-9 Depression Total Score: 1 09/11/19 1:42 PM BANKING AND FINANCE INSTRUCTOR documented as of this encounter Care Teams Ferry Captain Relationship Specialty Start Date End Date Rakesh Cid PA-C [address] [place] [address] PCP - General Physician Radiator Cleaner - Medical 05/14/19 04/29/20 Marija Edgar APRN CNP PCP - General Nurse Practitioner 04/30/20 04/14/23 Esha Grimm PA-C [address] [place] [phone] PCP - General Family Medicine 05/04/23 Rakesh Cid PA-C [address] [place] [address] Assigned PCP 05/06/19 03/01/20 Lita Oseguera Personal Advocate & Liaison (PAL) 02/28/20 03/27/23 Rakesh Cid PA-C [address] [facility] [place] [address] Assigned PCP 03/02/20 06/07/20 Isaura Lamar RN Personal Advocate & Liaison (PAL) Family Practice 04/03/20 04/06/20 Lita Oseguera Personal Advocate & Liaison (PAL) 04/07/20 04/29/20 Chanelle Mccann APRN CNM [address] 077407 Assigned OBGYN Provider 05/02/2005/09 Lesley Guillermo, [facility] Community Health Worker 05/30/2005/12 Kyara De La Fuente, VJ Specialty Sample Collector Neurology 06/04/20 03/05/21 Marija Edgar APRN TREE PLANTER Assigned PCP 06/08/20 04/29/23 Mynor Broussard MD [address] [facility] [address] [place], [place] [address] Assigned Surgical Provider 06/01/20 11/28/21 Keisha Dotson MD [address] [place], [place] 2[address] Assigned Neuroscience Provider 06/04/20 04/01/23 Mary Mejia Financial Resource Worker 08/07/20 08/21/20 Stacey Briones, STRIP PICKER Lead Sample Collector Primary Care - CC 08/11/2012/30 Lesley Guillermo, [facility] Community Health Worker 08/11/2010/01 Mary Mejia Financial Resource Worker 09/02/20 10/06/20 Lita Oseguera Personal Advocate & Liaison (PAL) Family Medicine 09/10/20 09/21/20 Galo Burrell MD Assigned Heart and Vascular Provider 10/05/20 04/02/22 Cristina Wood Financial Resource Worker 10/07/20 10/14/20 Lesley Guillermo, [facility] Community Health Worker 10/23/2012/30 Meredith Bedoya Financial Resource Worker 10/23/20 11/23/20 Cristina Wood Financial Resource Worker 02/09/21 02/09/21 Diana Desir, [facility] [address] [place], [place] [address] Pharmacist Pharmacist 04/17/21 Rain Galaviz PA-C [address] [place] [address] [address] [facility] [place] [phone] Physician Radiator Cleaner Dermatology 04/28/21 Summer Lara MD [address] [place] [address] 596134 Assigned OBGYN Provider 05/10/2105/23 Summer Lara MD [address], [place] [address] Assigned OBGYN Provider 05/31/21 2 Summer Lara MD [address] [place] [address] Assigned OBGYN Provider 05/24/2105/30 Tavia Wyatt MD [address] [place], [place] [address] Dermatology 07/14/21 Johnny Murillo MD [address] [place], [place] 211274 Assigned Musculoskeletal Provider 08/30/21 03/17/22 Erica Farrell APRN TREE PLANTER [address] [facility] [address] [place], [place] 2449[address] Nurse Practitioner Cardiovascular Disease 09/09/21 Teresita Bean [facility] [address] [place] [place], [place] [phone] Pharmacist Pharmacist 09/24/21 09/29/21 Tavia Wyatt MD [address] [place], [place] 0[address] Assigned Surgical Provider 11/29/21 05/07/22 Diana Desir, [facility] [address] [place] [place], [place] 36[address] Assigned MTM Pharmacist 01/02/22 Rich Barrett MD [address] [facility] [address] [place], [place] [address] Physician Ophthalmology 01/21/22 Neil Kent MD [address] [place] [address] Dermatology 02/24/22 Roney Story DPM [address] [facility] [address] [place] [address] Assigned Musculoskeletal Provider 03/20/22 08/13/22 Erica Farrell APRN TREE PLANTER [address] [place] [address] Assigned Heart and Vascular Provider 04/03/22 04/16/22 Diana Desir, [facility] [address] [place] [address] Assigned MTM Pharmacist 04/07/22 [address] David [address] [facility] [place] [address] Assigned Surgical Provider 05/08/22 10/08/22 Galo Burrell MD Assigned Heart and Vascular Provider 04/17/22 06/11/22 Livan Sharif MD [address] [place] [address] Cardiovascular Disease 05/14/22 Livan Sharif MD [address] [place] 168005 Assigned Heart and Vascular Provider 06/12/22 07/23/22 Catherine Cm MD [address] [place] [address] Cardiovascular Disease 07/21/22 Valery Veronica PA-C [address] [place] [address] Physician Radiator Cleaner Dermatology 07/21/22 Catherine Cm MD [address] [facility] [address] [facility] [address] [place] [address] Assigned Heart and Vascular Provider 07/24/22 11/05/22 Johnny Murillo MD [address] [place] [address] Assigned Musculoskeletal Provider 08/14/22 10/08/22 Brea Quinn APRN TREE PLANTER [address] [place] [address] 659105 Nurse Practitioner Dermatology 09/21/22 Brea Quinn APRN TREE PLANTER [address] [place] [address] Assigned Surgical Provider 10/09/22 05/01/24 [place] [address] [address] Assigned Musculoskeletal Provider 10/09/22 05/01/24 Livan Sharif MD [address], [facility] [address] [place] [address] Assigned Heart and Vascular Provider 11/06/22 11/12/22 Catherine Cm MD [address] [place] [address] Assigned Heart and Vascular Provider 11/13/22 05/27/23 Sydnie Martinez RN Personal Advocate & Liaison (PAL) Family Medicine 03/28/23 07/31/23 Alfonso Renteria MD [address] [facility] [address] [place] [address] Assigned Neuroscience Provider 04/02/23 Cheng Todd PA-C [address] [place] [address] [id number] Assigned PCP 04/30/23 07/15/23 Radha Lomeli APRN TREE PLANTER [address] [place] [address] Assigned Heart and Vascular Provider 05/28/23 Jelena David OD [address] [facility] [place] [address] Ophthalmology 06/15/23 Pao Joseph RN Personal Advocate & Liaison (PAL) Nurse 08/01/23 11/07/23 Esha Grimm PA-C [address] [place] [phone] Assigned PCP 07/16/23 Valery Veronica PA-C [address] [place] [address] Physician Radiator Cleaner Dermatology 09/19/23 Rey Tay MD [address] [place] [address] Gastroenterology 09/20/23 Rocky Zepeda DO 500 [place] [address] Physician Gastroenterology 09/20/23 Philip Dumont MD 6 [place] [address] Physician Ophthalmology 09/22/23 Meredith Carrera PA-C 9 [place] [address] Assigned Gastroenterology Provider 11/01/23 Neil Kent MD [address] [address] Dermatology 11/02/23 [place] [address] [address] Neurological Surgery 12/26/23 Audrey Waite PA-C 500 [place] [address] Physician Radiator Cleaner Dermatology 02/28/24 Valery Veronica PA-C [id number] [address] [place] [address] Physician Radiator Cleaner Dermatology 04/10/24 Herminia Hatch MD [facility]5 [place], [place] [id number] Assigned Rheumatology Provider 07/02/24 documented as of this encounter
--- OUTSIDE RECORDS SUMMARY | 2024-08-28 19:07 | XMS_ITS | Encounter Summary ---
Author Organization [facility] Address [address] [place] [address] Care Team Providers Care Computer Bookkeeper Name Role Phone Rakesh Cid PA-C Primary Care Provider Lita Oseguera Unavailable Unavailable Rakesh Cid PA-C Unavailable [phone] Lita Oseguera Unavailable Unavailable Marija Edgar APRN TESTER OPERATOR HELPER Primary Care Provider + Chanelle Mccann APRN CNM Unavailab le Lesley Guillermo Unavailable [phone] Kyara De La Fuente RN Unavailable [phone] Marija Edgar APRN TESTER OPERATOR HELPER Unavailable [phone] Mynor Broussard MD Unavailable [phone] Keisha Dotson MD Unavailable [phone] Mary Mejia Unavailable Unavailable Stacey Briones DOG SHOW JUDGE Unavailable Lesley Guillermo Unavailable [phone] Mary Mejia Unavailable Unavailable Lita Oseguera Unavailable Unavailable Galo Burrell MD Unavailable Unavailable Cristina Wood Unavailable Lesley Guillermo Unavailable Meredith Bedoya Unavailable Unavailable Cristina Wood Unavailable Diana Desir [facility] Unavailable [phone] Rain Galaviz PA-C Unavailable Summer Lara MD Unavailable [phone] Summer Lara MD Unavailable +[phone] Summer Lara MD Unavailable +[phone] Tavia Wyatt MD Unavailable [phone] Johnny Murillo MD Unavailable [phone] Erica Farrell APRN TESTER OPERATOR HELPER Unavailable + Teresita Bean [facility] Unavailable [phone] Tavia Wyatt MD Unavailable [phone] Diana Desir [facility] Unavailable [phone] Rich Barrett MD Unavailable [phone] Neil Kent MD Unavailable Roney Story DPM Unavailable [phone] Erica Farrell APRN TESTER OPERATOR HELPER Unavailable Diana Desir [facility] Unavailable [phone] Jelena David OD Unavailable Galo Burrell MD Unavailable Unavailable Livan Sharif MD Unavailable + Livan Sharif MD Unavailable + Catherine Cm MD Unavailable + Valery Veronica PA-C Unavailable [phone] Catherine Cm MD Unavailable + Johnny Murillo MD Unavailable [phone] Brea Quinn APRN TESTER OPERATOR HELPER Unavailable [phone] JUDGE TESTER OPERATOR HELPER Unavailable Jose Francisco Johnson MD Unavailable Livan Sharif MD Unavailable Catherine Cm MD Unavailable + Sydnie Martinez RN Unavailable Unavailable Alfonso Renteria MD Unavailable [phone] Esha Grimm PA-C Primary Care Provider Cheng Todd PA-C Unavailable [phone] JUDGE TESTER OPERATOR HELPER Unavailable Jelena David Radha OD Unavailable Pao Joseph RN Unavailable Unavailable Esha Grimm PA-C Unavailable [phone] Valery Veronica PA-C Unavailable Rey Tay MD Unavailable Rocky Zepeda DO Unavailable Philip Dumont MD Unavailable [phone] Meredith Carrera PA-C Unavailable Neil Kent MD Unavailable Juan Pablo Emmanuel MD Unavailable [phone] Audrey Waite PA-C Unavailable Valery Veronica PA-C Unavailable Herminia Hatch MD Unavailable Encounter Details Date Type Department Care Team (Late st Contact Info) Description 04/28/2020 [facility] [address] [address] Rakesh Cid PA-C [address] [place] [address] Social History Tobacco Use Types Packs/Day Years [...] CDT Legal Sex Female 4:13 AM [employer] Gender Identity Female 03/02/2021 5:45 PM CDT [...] Office Visit [facility] Neurology [address], [address] [place] [address] [place] [address] [address] [place] [address] Johnny Penn MD [address] [place] [address] documented as of this encounter Visit Diagnoses Not on filedocumented in this encounter Additional Health Concerns Infection Onset Date Last Indicated Resolved Time Rule Out COVID-19 07/30/2020 07/30/2020 07/30/2020 7:11 PM [employer] Rule Out COVID-19 08/30/2020 08/30/2020 08/30/2020 5:05 PM [employer] Rule Out COVID-19 09/24/2020 09/24/2020 09/24/2020 9:24 AM CDT Rule Out COVID-19 11/05/2020 11/05/2020 11/06/2020 1:09 PM CDT Rule Out COVID-19 05/11/2021 05/11/2021 05/13/2021 10:18 AM CDT Rule Out COVID-19 07/13/2021 07/13/2021 07/14/2021 3:04 PM [employer] Rule Out COVID-19 07/18/2021 07/18/2021 07/20/2021 1:56 PM [employer] COVID-19 07/18/2021 07/18/2021 08/08/2021 11:3 9 PM [employer] Rule Out COVID-19 12/18/2021 12/18/2021 12/19/2021 11:34 AM CDT Rule Out COVID-19 02/24/2022 02/24/2022 02/25/2022 1:08 PM CDT Rule Out COVID-19 04/26/2022 04/26/2022 04/26/2022 6:47 AM CDT Rule Out COVID-19 05/17/2022 05/17/2022 05/17/2022 10:20 PM [employer] Rule Out COVID-19 06/09/2022 06/09/2022 06/09/2022 9:35 AM SUPER[employer] COVID-19 06/09/2022 06/09/2022 06/30/2022 11:4 1 PM [employer] Rule Out COVID-19 11/10/2022 11/10/2022 11/11/2022 12:17 PM CDT Rule Out COVID-19 03/07/2023 03/07/2023 03/07/2023 1:20 PM CDT Rule Out COVID-19 12/26/2023 12/26/2023 12/26/2023 9:50 AM CDT Rule Out COVID-19 04/09/2024 04/09/2024 04/10/2024 6:48 PM CDT Assessment Noted Time PHQ-9 Depression Total Score: 12 020 2:40 PM CDT documented as of this encounter Care Teams Computer Bookkeeper Relationship Specialty Start Date End Date Rakesh Cid PA-C PCP - General Physician Associate Dean - Medical 05/14/19 04/29/20 Marija Edgar APRN TESTER OPERATOR HELPER [address] [place] [address] PCP - General Nurse Practitioner 04/30/20 04/14/23 Esha Grimm PA-C [address] [place] [phone] PCP - General Family Medicine 05/04/23 Lita Oseguera Personal Advocate & Liaison (PAL) 02/28/20 03/27/23 Rakesh Cid PA-C [address] [place] [address] Assigned PCP 03/02/20 06/07/20 Lita Oseguera Personal Advocate & Liaison (PAL) 04/07/20 04/29/20 Chanelle Mccann APRN CNM [address] [facility] [address] [place] [address] Assigned OBGYN Provider 05/02/2005/09 Lesley Guillermo CHW Community Health Worker 05/30/2005/12 Kyara De La Fuente, RN Specialty [place] Neurology 06/04/20 03/05/21 Marija Edgar APRN TESTER OPERATOR HELPER [address] [place] [address] Assigned PCP 06/08/20 04/29/23 Mynor Broussard MD [address] [place], [place] [address] Assigned Surgical Provider 06/01/20 11/28/21 Keisha Dotson MD [address] [place], [place] [address] Assigned Neuroscience Provider 06/04/20 04/01/23 Mary Mejia Financial Resource Worker 08/07/20 08/21/20 Stacey Briones, [facility] Lead [place] Primary Care - CC 08/11/2012/30 Lesley Guillermo, [facility] Community Health Worker 08/11/2010/01 Mary Mejia Financial Resource Worker 09/02/20 10/06/20 Lita Oseguera Personal Advocate & Liaison (PAL) Family Medicine 09/10/20 09/21/20 Galo Burrell MD Assigned Heart and Vascular Provider 10/05/20 04/02/22 Cristina Wood Financial Resource Worker 10/07/20 10/14/20 Lesley Guillermo, [facility] Community Health Worker 10/23/2012/30 Meredith Bedoya Financial Resource Worker 10/23/20 11/23/20 Cristina Wood Financial Resource Worker 02/09/21 02/09/21 Diana Desir, [facility] [address] [place] [address] Pharmacist Pharmacist 04/17/21 Rain Galaviz PA-C [address] [place] [address] [facility] [address] Physician Associate Dean Dermatology 04/28/21 Summer Lara MD [address] [place] [address] Assigned OBGYN Provider 05/10/2105/23 Summer Lara MD [address] [place] [address] Assigned OBGYN Provider 05/31/21 Summer Lara MD [address] [place] [address] Assigned OBGYN Provider 05/24/2105/30 Tavia Wyatt MD [address] [place] [address] Dermatology 07/14/21 Johnny Murillo MD [address] [place] [address] Assigned Musculoskeletal Provider 08/30/21 03/17/22 Erica Farrell APRN TESTER OPERATOR HELPER [address] [facility] [address] [place] [address] Nurse Practitioner Cardiovascular Disease 09/09/21 Teresita Bean, [facility] [address] [place] [address] Pharmacist Pharmacist 09/24/21 09/29/21 Tavia Wyatt MD [address] [place] [address] Assigned Surgical Provider 11/29/21 05/07/22 Diana Desir, [facility] [address] [place] [address] Assigned MTM Pharmacist 01/02/22 Rich Barrett MD [address] [id number] Physician Ophthalmology 01/21/22 Neil Kent MD [address] [place] [address] Dermatology 02/24/22 Roney Story DPM [address] [facility] [address] [place] [address] Assigned Musculoskeletal Provider 03/20/22 08/13/22 Erica Farrell APRN TESTER OPERATOR HELPER [address] [place] [address] Assigned Heart and Vascular Provider 04/03/22 04/16/22 Diana Desir, [facility] [address] [place] [address] Assigned MTM Pharmacist 04/07/22 Jelena David OD [address] [facility] [place] [address] Assigned Surgical Provider 05/08/22 10/08/22 Galo Burrell MD Assigned Heart and Vascular Provider 04/17/22 06/11/22 Livan Sharif MD [address] Sylvia, [facility] [address] [place] [id number] Cardiovascular Disease 05/14/22 Livan Sharif MD [address] [place], [facility] [place] 746605 Assigned Heart and Vascular Provider 06/12/22 07/23/22 Catherine Cm MD [address] [facility]00 [place] [id number] Cardiovascular Disease 07/21/22 Valery Veronica, PA-C [address] [place] [address] 316825 Physician Associate Dean Dermatology 07/21/22 Catherine Cm MD [address] [facility]00 [place] [address] Assigned Heart and Vascular Provider 07/24/22 11/05/22 Johnny Murillo MD [facility] [address] Assigned Musculoskeletal Provider 08/14/22 10/08/22 Brea Quinn APRN TESTER OPERATOR HELPER [address] [place] [address] 448725 Nurse Practitioner Dermatology 09/21/22 Brea Quinn APRN TESTER OPERATOR HELPER [address] [place] [address] [place] [address] Assigned Surgical Provider 10/09/22 05/01/24 [place] [address] [place] [address], [place] [address] Assigned Musculoskeletal Provider 10/09/22 05/01/24 Livan Sharif MD [address], [facility] [address] [place] [address] Assigned Heart and Vascular Provider 11/06/22 11/12/22 Catherine Cm MD [address] [facility] [address] [place] [address] Assigned Heart and Vascular Provider 11/13/22 05/27/23 Sydnie Martinez RN Personal Advocate & Liaison (PAL) Family Medicine 03/28/23 07/31/23 Alfonso Renteria MD [address] [facility] [address] [place] [address] Assigned Neuroscience Provider 04/02/23 Cheng Todd PA-C [address] [place] [address] [id number] Assigned PCP 04/30/23 07/15/23 Radha Lomeli APRN TESTER OPERATOR HELPER [address] [place] [address] Assigned Heart and Vascular Provider 05/28/23 Jelena David OD [address] [facility] [place] [address] MD Ophthalmology 06/15/23 Pao Joseph, RN Personal Advocate & Liaison (PAL) Nurse 08/01/23 11/07/23 Esha Grimm PA-C [address] [place] [address] Assigned PCP 07/16/23 Valery Veronica PA-C [address] [place] [address] Physician Associate Dean Dermatology 09/19/23 Rey Tay MD [address] [place] [address] Gastroenterology 09/20/23 Rocky Zepeda DO [address] [place] [address] 767915 Physician Gastroenterology 09/20/23 Philip Dumont MD [address] [place] [address] 088915 Physician Ophthalmology 09/22/23 Meredith Carrera PA-C [address] [place] [address] 729205 Assigned Gastroenterology Provider 11/01/23 Neil Kent MD [address] [id number] Dermatology 11/02/23 [place] [address] [place] [address] Neurological Surgery 12/26/23 Audrey Waite PA-C [address] [place] [address] Physician Associate Dean Dermatology 02/28/24 Valery Veronica PA-C [address] [place] [address] Physician Associate Dean Dermatology 04/10/24 Herminia Hatch MD [address] [place] [address] [id number] Assigned Rheumatology Provider 07/02/24 documented as of this encounter
--- OUTSIDE RECORDS SUMMARY | 2024-08-28 19:07 | XMS_ITS | Encounter Summary ---
Author Organization [facility] Address [address] [place] [address] Care Team Providers Care Fishing Lure Assembler Name Role Phone Rakesh Cid PA-C Primary Care Provider Lita Oseguera Unavailable Unavailable Rakesh Cid PA-C Unavailable [phone] Lita Oseguera Unavailable Unavailable Marija Edgar APRN GROUND NUCLEAR WEAPONS ASSEMBLY OFFICER Primary Care Provider + Chanelle Mccann APRN CNM Unavailab le Lesley Guillermo Unavailable [phone] Kyara De La Fuente RN Unavailable [phone] Marija Edgar APRN GROUND NUCLE[employer] WEAPONS ASSEMBLY OFFICER Unavailable [phone] Mynor Broussard MD Unavailable [phone] Keisha Dotson MD Unavailable Mary Mejia Unavailable Unavailable Stacey Briones STATE EDITOR Unavailable Lesley Guillermo Unavailable [phone] Mary Mejia Unavailable Unavailable Lita Oseguera Unavailable Unavailable Galo Burrell MD Unavailable Unavailable Cristina Wood Unavailable Lesely Guillermo Unavailable Meredith Bedoya Unavailable Unavailable Cristina Wood Unavailable Diana Desir [facility] Unavailable [phone] Rain Galaviz PA-C Unavailable Summer Lara MD Unavailable [phone] Summer Lara MD Unavailable [phone] Summer Lara MD Unavailable [phone] Tavia Wyatt MD Unavailable [phone] Johnny Murillo MD Unavailable +[phone] Erica Farrell APRN GROUND NUCLEAR WEAPONS ASSEMBLY OFFICER Unavailable + Teresita Bean [facility] Unavailable [phone] Tavia Wyatt MD Unavailable [phone] Diana Desir [facility] Unavailable [phone] Rich Barrett MD Unavailable [phone] Neil Kent MD Unavailable Roney Story DPM Unavailable [phone] Erica Farrell APRN GR[employer] NUCLE[employer] WEAPONS ASSEMBLY OFFICER Unavailable Diana Desir [facility] Unavailable [phone] Jelena David OD Unavailable [phone] Galo Burrell MD Unavailable Unavailable Livan Sharif MD Unavailable + Livan Sharif MD Unavailable + Catherine Cm MD Unavailable + Valery Veronica PA-C Unavailable [phone] Catherine Cm MD Unavailable + Johnny Murillo MD Unavailable [phone] Brea Quinn APRN GROUND NUCLE[employer] WEAPONS ASSEMBLY OFFICER Unavailable [phone] Brea Qunin BOW TACKER GROUND NUCLEAR WEAPONS ASSEMBLY OFFICER Unavailable Jose Francisco Johnson MD Unavailable Livan Sharif MD Unavailable Catherine Cm MD Unavailable + Sydnie Martinez RN Unavailable Unavailable Alfonso Renteria MD Unavailable [phone] Esha Grimm PA-C Primary Care Provider Cheng Todd PA-C Unavailable [phone] Radha Lomeli BOW TACKER GR[employer] NUCLE[employer] WEAPONS ASSEMBLY OFFICER Unavailable Jelena David Radha OD Unavailable [phone] Pao Joseph RN Unavailable Unavailable Esha Grimm PA-C Unavailable [phone] Valery Veronica PA-C Unavailable Rey Tay MD Unavailable Rocky Zepeda DO Unavailable Philip Dumont MD Unavailable Meredith Carrera PA-C Unavailable Neil Kent MD Unavailable Juan Pablo Emmanuel MD Unavailable [phone] Audrey Waite PA-C Unavailable [phone] Valery Veronica PA-C Unavailable Herminia Hatch MD Unavailable Encounter Details Date Type Department Care Team (Late st Contact Info) Description 04/25/2020 [facility] [address] [address] Rakesh Cid PA-C [address] [place] [address] Social History Tobacco Use Types Packs/Day Years [...] PM CDT Legal Sex Female 4:13 AM INSIDE STEWARD/STEWARDESS Gender Identity Female 03/02/2021 5:45 PM CDT [...] Office Visit [facility] Neurology [address], [address] [place] [address] [place] [address] [address] [place] [address] Johnny Penn MD [address] [place] [address] documented as of this encounter Visit Diagnoses Not on filedocumented in this encounter Additional Health Concerns Infection Onset Date Last Indicated Resolved Time Rule Out COVID-19 07/30/2020 07/30/2020 07/30/2020 7:11 PM INSIDE STEWARD/STEWARDESS Rule Out COVID-19 08/30/2020 08/30/2020 08/30/2020 5:05 PM INSIDE STEWARD/STEWARDESS Rule Out COVID-19 09/24/2020 09/24/2020 09/24/2020 9:24 AM CDT Rule Out COVID-19 11/05/2020 11/05/2020 11/06/2020 1:09 PM CDT Rule Out COVID-19 05/11/2021 05/11/2021 05/13/2021 10:18 AM CDT Rule Out COVID-19 07/13/2021 07/13/2021 07/14/2021 3:04 PM INSIDE STEWARD/STEWARDESS Rule Out COVID-19 07/18/2021 07/18/2021 07/20/2021 1:56 PM INSIDE STEWARD/STEWARDESS COVID-19 07/18/2021 07/18/2021 08/08/2021 11:3 9 PM INSIDE STEWARD/STEWARDESS Rule Out COVID-19 12/18/2021 12/18/2021 12/19/2021 11:34 AM CDT Rule Out COVID-19 02/24/2022 02/24/2022 02/25/2022 1:08 PM CDT Rule Out COVID-19 04/26/2022 04/26/2022 04/26/2022 6:47 AM CDT Rule Out COVID-19 05/17/2022 05/17/2022 05/17/2022 10:20 PM INSIDE STEWARD/STEWARDESS Rule Out COVID-19 06/09/2022 06/09/2022 06/09/2022 9:35 AM INSIDE STEWARD/STEWARDESS COVID-19 06/09/2022 06/09/2022 06/30/2022 11:4 1 PM INSIDE STEWARD/STEWARDESS Rule Out COVID-19 11/10/2022 11/10/2022 11/11/2022 12:17 PM CDT Rule Out COVID-19 03/07/2023 03/07/2023 03/07/2023 1:20 PM CDT Rule Out COVID-19 12/26/2023 12/26/2023 12/26/2023 9:50 AM CDT Rule Out COVID-19 04/09/2024 04/09/2024 04/10/2024 6:48 PM CDT Assessment Noted Time PHQ-9 Depression Total Score: 12 020 2:40 PM CDT documented as of this encounter Care Teams Fishing Lure Assembler Relationship Specialty Start Date End Date Rakesh Cid PA-C PCP - General Physician Porcelain Waxer - Medical 05/14/19 04/29/20 Marija Edgar APRN GR[employer] NUCLE[employer]AP[employer] ASSEMBLY OFFICER [address] [place] [address] PCP - General Nurse Practitioner 04/30/20 04/14/23 Esha Grimm PA-C [address] [place] [phone] PCP - General Family Medicine 05/04/23 Lita Oseguera Personal Advocate & Liaison (PAL) 02/28/20 03/27/23 Rakesh Cid PA-C [address] [place] [address] Assigned PCP 03/02/20 06/07/20 Lita Oseguera Personal Advocate & Liaison (PAL) 04/07/20 04/29/20 Chanelle Mccann APRN CNM [address] [facility] [address] [place] [address] Assigned OBGYN Provider 05/02/2005/09 Lesley Guillermo CHW Community Health Worker 05/30/2005/12 Kyara De La Fuente, RN Specialty Urologist Md Neurology 06/04/20 03/05/21 Marija Edgar APRN GR[employer] NUCLE[employer] ASSEMBLY OFFICER [address] [place] [address] Assigned PCP 06/08/20 04/29/23 Mynor Broussard MD [address] [place], [place] [address] Assigned Surgical Provider 06/01/20 11/28/21 Keisha Dotson MD [address] [place], [place] [address] Assigned Neuroscience Provider 06/04/20 04/01/23 Mary Mejia Financial Resource Worker 08/07/20 08/21/20 Stacey Briones, [facility] Lead Urologist Md Primary Care - CC 08/11/2012/30 Lesley Guillermo, [facility] Community Health Worker 08/11/2010/01 Mary Mejia Financial Resource Worker 09/02/20 10/06/20 Lita Oseguera Personal Advocate & Liaison (PAL) Family Medicine 09/10/20 09/21/20 Galo Burrell MD Assigned Heart and Vascular Provider 10/05/20 04/02/22 Cristina Wood Financial Resource Worker 10/07/20 10/14/20 Lesley Guillermo, [facility] Community Health Worker 10/23/2012/30 Meredith Bedoya Financial Resource Worker 10/23/20 11/23/20 Cristina Wood Financial Resource Worker 02/09/21 02/09/21 Diana Desir, [facility] [address] [place] [address] Pharmacist Pharmacist 04/17/21 Rain Galaviz PA-C [address] [place] [address] [address] [facility] [address] Physician Porcelain Waxer Dermatology 04/28/21 Summer Lara MD [address] [place] [address] Assigned OBGYN Provider 05/10/2105/23 Summer Lara MD [address] [place] [address] Assigned OBGYN Provider 05/31/21 Summer Lara MD [address] [place] [address] Assigned OBGYN Provider 05/24/2105/30 Tavia Wyatt MD [address] [place] [address] Dermatology 07/14/21 Johnny Murillo MD [address] [place] [address] Assigned Musculoskeletal Provider 08/30/21 03/17/22 Erica Farrell APRN GROUND NUCLE[employer] WEAPONS ASSEMBLY OFFICER [address] [facility] [address] [place] [address] Nurse Practitioner Cardiovascular Disease 09/09/21 Teresita Bean, [facility] [address] [place] [address] Pharmacist Pharmacist 09/24/21 09/29/21 Tavia Wyatt MD [address] [place] [address] Assigned Surgical Provider 11/29/21 05/07/22 Diana Desir, [facility] [address] [place] [address] Assigned MTM Pharmacist 01/02/22 Rich Barrett MD [address] 213835 Physician Ophthalmology 01/21/22 Neil Kent MD [address] [place] [address] Dermatology 02/24/22 Roney Story DPM [address] [facility] [address] [place] [address] Assigned Musculoskeletal Provider 03/20/22 08/13/22 Erica Farrell APRN GR[employer] NUCLE[employer] WEAP[employer] ASSEMBLY OFFICER [address] [place] [address] Assigned Heart and Vascular Provider 04/03/22 04/16/22 Diana Desir, [facility] [address] [place] [address] Assigned MTM Pharmacist 04/07/22 Jelena David OD [address] [facility] [place] [address] Assigned Surgical Provider 05/08/22 10/08/22 Galo Burrell MD Assigned Heart and Vascular Provider 04/17/22 06/11/22 Livan Sharif MD [address] Sylvia, [facility] [address] [place] [address]78[address] Cardiovascular Disease 05/14/22 Livan Sharif MD [address] [place], [facility] [place] 253215 Assigned Heart and Vascular Provider 06/12/22 07/23/22 Catherine Cm MD [address] [facility] [place] [id number] Cardiovascular Disease 07/21/22 Valery Veronica, PA-C [address] [place] [phone] Physician Porcelain Waxer Dermatology 07/21/22 Catherine Cm MD [address] [facility] [place] [address] Assigned Heart and Vascular Provider 07/24/22 11/05/22 Johnny Murillo MD [facility] [place] [address] [address] Assigned Musculoskeletal Provider 08/14/22 10/08/22 Brea Quinn APRN GR[employer]LE[employer] ASSEMBLY OFFICER [address] [place] [address] 466825 Nurse Practitioner Dermatology 09/21/22 Brea Quinn APRN [employer] ASSEMBLY OFFICER [address] [place] [address] [place] [address] Assigned Surgical Provider 10/09/22 05/01/24 [place] [address] [place] [address], [place] [address] Assigned Musculoskeletal Provider 10/09/22 05/01/24 Livan Sharif MD [address], [facility] [address] [place] [address] Assigned Heart and Vascular Provider 11/06/22 11/12/22 Catherine Cm MD [address] [facility] [address] [place] [address] Assigned Heart and Vascular Provider 11/13/22 05/27/23 Sydnie Martinez RN Personal Advocate & Liaison (PAL) Family Medicine 03/28/23 07/31/23 Alfonso Renteria MD [address] [facility] [address] [place] [address] Assigned Neuroscience Provider 04/02/23 Cheng Todd PA-C [address] [place] [address] [id number] Assigned PCP 04/30/23 07/15/23 Radha Lomeli APRN GR[employer] NUCLE[employer] WEAP[employer] ASSEMBLY OFFICER [address] [place] [address] Assigned Heart and Vascular Provider 05/28/23 Jelena David OD [address] [facility] [place] [address] MD Ophthalmology 06/15/23 Pao Joseph, RN Personal Advocate & Liaison (PAL) Nurse 08/01/23 11/07/23 Esha Grimm PA-C [address] [place] [phone] Assigned PCP 07/16/23 Valery Veronica PA-C [address] [place] [address] Physician Porcelain Waxer Dermatology 09/19/23 Rey Tay MD [address] [place] [address] Gastroenterology 09/20/23 Rocky Zepeda DO [address] [place] [address] [phone] Physician Gastroenterology 09/20/23 Philip Dumont MD [address] [place] [address] 543995 Physician Ophthalmology 09/22/23 Meredith Carrera PA-C [address] [place] [address] 976365 Assigned Gastroenterology Provider 11/01/23 Neil Kent MD [address] 1067[address] Dermatology 11/02/23 [place] [address] [place] [address] Neurological Surgery 12/26/23 Audrey Waite PA-C [address] [place] [address] Physician Porcelain Waxer Dermatology 02/28/24 Valery Veronica PA-C [address] [place] [address] Physician Porcelain Waxer Dermatology 04/10/24 Herminia Hatch MD [address] [place] [address] [id number] Assigned Rheumatology Provider 07/02/24 documented as of this encounter
--- OUTSIDE RECORDS SUMMARY | 2024-08-28 19:07 | XMS_ITS | Encounter Summary ---
Author Organization [facility] Address [address] [place] [address] Care Team Providers Care Metal Ceiling Hanger Name Role Phone Lita Oseguera Unavailable Unavailable Rakesh Cid PA-C Unavailable Marija Edgar APRN GEOLOGICAL ENGINEERING TEACHER Primary Care Provider + Chanelle Mccann APRN CN Unavailab le Lesley Guillermo CHW Unavailable [phone] Kyara De La Fuente RN Unavailable [phone] Marija Edgar APRN [facility] Unavailable Mynor Broussard MD Unavailable [phone] Keisha Dotson MD Unavailable Mary Mejia Unavailable Unavailable Stacey Briones EMPLOYEE BENEFITS DIRECTOR Unavailable [phone] Lesley Guillermo CHW Unavailable [phone] Mary Mejia Unavailable Unavailable Lita Oseguera Unavailable Unavailable Galo Burrell MD Unavailable Unavailable Cristina Wood Unavailable Lesley Guillermo CHW Unavailable [phone] Meredith Bedoya Unavailable Unavailable Cristina Wood Unavailable Diana Desir [facility] Unavailable [phone] Rain Galaviz PA-C Unavailable Summer Lara MD Unavailable [phone] Summer Lara MD Unavailable Summer Lara MD Unavailable [phone] Tavia Wyatt MD Unavailable [phone] Johnny Murillo MD Unavailable +[phone]- Erica Farrell APRN GEOLOGICAL ENGINEERING TEACHER Unavailable + Teresita Bean [facility] Unavailable Tavia Wyatt MD Unavailable [phone] Diana Desir [facility] Unavailable [phone] Rich Barrett MD Unavailable [phone] Neil Kent MD Unavailable Roney Story DPM Unavailable Erica Farrell APRN GEOLOGICAL ENGINEERING TEACHER Unavailable + Diana Desir [facility] Unavailable [phone] FrankieJelena OD Unavailable Galo Burrell MD Unavailable Unavailable Livan Sharif MD Unavailable + Livan Sharif MD Unavailable + Catherine Cm MD Unavailable + Valery Veronica PA-C Unavailable [phone] Catherine Cm MD Unavailable + Johnny Murillo MD Unavailable +1- Brea Quinn APRN GEOLOGICAL ENGINEERING TEACHER Unavailable +[phone] [place], Brea P FRUIT HARVESTER MACHINE OPERATOR GEOLOGICAL ENGINEERING TEACHER Unavailable Jose Francisco Johnson MD Unavailable Livan Sharif MD Unavailable Catherine Cm MD Unavailable + Sydnie Martinez RN Unavailable Unavailable Alfonso Renteria MD Unavailable [phone] Esha Grimm PA-C Primary Care Provider Cheng Todd PA-C Unavailable Armani Radha Stovall FRUIT HARVESTER MACHINE OPERATOR GEOLOGICAL ENGINEERING TEACHER Unavailable Jelena David OD Unavailable Pao Joseph RN Unavailable Unavailable Esha Grimm PA-C Unavailable [phone] Valery Veronica PA-C Unavailable Rey Tay MD Unavailable Rocky Zepeda DO Unavailable Philip Dumont MD Unavailable Meredith Carrera PA-C Unavailable Neil Kent MD Unavailable Juan Pablo Emmanuel MD Unavailable [phone] Audrey Waite PA-C Unavailable Valery Veronica PA-C Unavailable Herminia Hatch MD Unavailable Reason for Visit * Reason Onset Date Comments Referral 05/19/2020 Encounter Details Date Type Department Care Team (Late st Contact Info) Description 05/19/2020 Telephone [facility] [address], [address] [place] [address] Unknown Referral Social History Tobacco [...] PM CDT Legal Sex Female 4:13 AM LEAD SOFTWARE ENGINEER Gender Identity Female 03/02/2021 5:45 PM CDT Sexual Orientation Straight 02/28/2020 12 :51 AM CDT COVID-19 Exposure Response Date Recorded In the last month, have you been in contact with someone who was confirmed or suspected to have Coronavirus / COVID-19? No / Unsure 05/12/2020 9:03 AM LEAD SOFTWARE ENGINEER documented as of this encounter Miscellaneous Notes * Telephone Encounter - McphersonJolene stovall - 05/19/2020 2:02 PM CST [facility] Phone Message May a detailed message be left on voicemail: yes Reason for Call: Appointment Intake Referring Provider Name: Marija Edgar APRN CNP in FAMILY PRACTICE Diagnosis and/or Symptoms: History of Seizures Being referred to [facility]. Please review. Thanks. Action Taken: Other: [facility] Travel Screening: Not Applicable SOFTWARE ENGINEER documented in this encounter Plan of Treatment Upcoming Encounters Date Type Department Care Team (Late st Contact Info) Description 10/23/2024 9:30 AM CDT Office Visit [facility] Neurology Clinics - [address], [address] [place] [address] [place] [address] [address] [place] [address] Johnny Penn MD 0[address] [facility] [place] [address] documented as of this encounter Visit Diagnoses Not on filedocumented in this encounter Additional Health Concerns Infection Onset Date Last Indicated Resolved Time Rule Out COVID-19 07/30/2020 07/30/2020 07/30/2020 7:11 PM LEAD SOFTWARE ENGINEER Rule Out COVID-19 08/30/2020 08/30/2020 08/30/2020 5:05 PM LEAD SOFTWARE ENGINEER Rule Out COVID-19 09/24/2020 09/24/2020 09/24/2020 9:24 AM CDT Rule Out COVID-19 11/05/2020 11/05/2020 11/06/2020 1:09 PM CDT Rule Out COVID-19 05/11/2021 05/11/2021 05/13/2021 10:18 AM CDT Rule Out COVID-19 07/13/2021 07/13/2021 07/14/2021 3:04 PM LEAD SOFTWARE ENGINEER Rule Out COVID-19 07/18/2021 07/18/2021 07/20/2021 1:56 PM LEAD SOFTWARE ENGINEER COVID-19 07/18/2021 07/18/2021 08/08/2021 11:3 9 PM LEAD SOFTWARE ENGINEER Rule Out COVID-19 12/18/2021 12/18/2021 12/19/2021 11:34 AM CDT Rule Out COVID-19 02/24/2022 02/24/2022 02/25/2022 1:08 PM CDT Rule Out COVID-19 04/26/2022 04/26/2022 04/26/2022 6:47 AM CDT Rule Out COVID-19 05/17/2022 05/17/2022 05/17/2022 10:20 PM LEAD SOFTWARE ENGINEER Rule Out COVID-19 06/09/2022 06/09/2022 06/09/2022 9:35 AM LEAD SOFTWARE ENGINEER COVID-19 06/09/2022 06/09/2022 06/30/2022 11:4 1 PM LEAD SOFTWARE ENGINEER Rule Out COVID-19 11/10/2022 11/10/2022 11/11/2022 12:17 PM CDT Rule Out COVID-19 03/07/2023 03/07/2023 03/07/2023 1:20 PM CDT Rule Out COVID-19 12/26/2023 12/26/2023 12/26/2023 9:50 AM CDT Rule Out COVID-19 04/09/2024 04/09/2024 04/10/2024 6:48 PM CDT Assessment Noted Time PHQ-9 Depression Total Score: 6 08/28/19 21 7:05 AM LEAD SOFTWARE ENGINEER documented as of this encounter Care Teams Metal Ceiling Hanger Relationship Specialty Start Date End Date Marija Edgar APRN GEOLOGICAL ENGINEERING TEACHER [address] [place] [address] PCP - General Nurse Practitioner 04/30/20 04/14/23 Esha Grimm PA-C [address] [place] [phone] PCP - General Family Medicine 05/04/23 Lita Oseguera Personal Advocate & Liaison (PAL) 02/28/20 03/27/23 Rakesh Cid PA-C [address] [place] [address] Assigned PCP 03/02/20 06/07/20 Chanelle Mccann APRN CNM [address] [address] Assigned OBGYN Provider 05/02/2005/09 Lesley Guillermo CHW Community Health Worker 05/30/2005/12 Kyara De La Fuente, RN Specialty Roundhouse Firer/Fireman Neurology 06/04/20 03/05/21 Marija Edgar APRN GEOLOGICAL ENGINEERING TEACHER [address] [place] [address] Assigned PCP 06/08/20 04/29/23 Mynor Broussard MD [address] [facility] 500 [place], [place] 357885 Assigned Surgical Provider 06/01/20 11/28/21 Keisha Dotson MD 909 [place], [place] 941485 Assigned Neuroscience Provider 06/04/20 04/01/23 Mary Mejia Financial Resource Worker 08/07/20 08/21/20 Stacey Briones, [facility] Lead Roundhouse Firer/Fireman Primary Care - CC 08/11/2012/30 Lesley Guillermo, [facility] Community Health Worker 08/11/2010/01 Mary Mejia Financial Resource Worker 09/02/20 10/06/20 Lita Oseguera Personal Advocate & Liaison (PAL) Family Medicine 09/10/20 09/21/20 Galo Burrell MD Assigned Heart and Vascular Provider 10/05/20 04/02/22 Cristina Wood Financial Resource Worker 10/07/20 10/14/20 Lesley Guillermo, [facility] Community Health Worker 10/23/2012/30 Meredith Bedoya Financial Resource Worker 10/23/20 11/23/20 Cristina Wood Financial Resource Worker 02/09/21 02/09/21 Diana Desir, [facility] [address] [place] [address] Pharmacist Pharmacist 04/17/21 Rain Galaviz PA-C [address] [place] [address] [address] [facility] [place] [address] Physician Warehouse Freight Handler Dermatology 04/28/21 Summer Lara MD [address] [place] [address] Assigned OBGYN Provider 05/10/2105/23 Summer Lara MD [address] [place] [address] Assigned OBGYN Provider 05/31/21 Summer Lara MD [address] [place] [address] Assigned OBGYN Provider 05/24/2105/30 Tavia Wyatt MD [address] [place] [address] Dermatology 07/14/21 Johnny Murillo MD [address] [facility] [address] [place] [address] Assigned Musculoskeletal Provider 08/30/21 03/17/22 Erica Farrell APRN GEOLOGICAL ENGINEERING TEACHER 6405 [facility] [address] [place] [address] Nurse Practitioner Cardiovascular Disease 09/09/21 Teresita Bean [facility] [address] [place] [address] Pharmacist Pharmacist 09/24/21 09/29/21 Tavia Wyatt MD [address] [place] [address] Assigned Surgical Provider 11/29/21 05/07/22 Diana Desir, [facility] [address] [place] [address] Assigned MTM Pharmacist 01/02/22 Rich Barrett MD [address] 175385 Physician Ophthalmology 01/21/22 Neil Kent MD 500 [place] [address] Dermatology 02/24/22 Roney Story DPM [address] [facility] [address] [place] [address] Assigned Musculoskeletal Provider 03/20/22 08/13/22 Erica Farrell APRN GEOLOGICAL ENGINEERING TEACHER 1700 [place] [address] Assigned Heart and Vascular Provider 04/03/22 04/16/22 Diana Desir, [facility] [address] [place] [address] Assigned MTM Pharmacist 04/07/22 Jelena David OD [address] [place] [address] [place] [address] Assigned Surgical Provider 05/08/22 10/08/22 Galo Burrell MD Assigned Heart and Vascular Provider 04/17/22 06/11/22 Livan Sharif MD [address], [facility] [address] [place] 263525 Cardiovascular Disease 05/14/22 Livan Sharif MD [address], [facility] [address] [place] 396705 Assigned Heart and Vascular Provider 06/12/22 07/23/22 Catherine Cm MD [address] [facility] [place] 782155 Cardiovascular Disease 07/21/22 Valery Veronica, PAUcheC [address] [place] [address] 409305 Physician Warehouse Freight Handler Dermatology 07/21/22 Catherine Cm MD [address] [facility] [facility]00 [place] 943495 Assigned Heart and Vascular Provider 07/24/22 11/05/22 Johnny Murillo MD [address] [place] [address] 697844 Assigned Musculoskeletal Provider 08/14/22 10/08/22 Brea Quinn APRN GEOLOGICAL ENGINEERING TEACHER [address] [place] [address] 987985 Nurse Practitioner Dermatology 09/21/22 Brea Quinn APRN GEOLOGICAL ENGINEERING TEACHER [address] [place] [address] [place] 148[address] [phone] Assigned Surgical Provider 10/09/22 05/01/24 [place] [address] [place] [address] Assigned Musculoskeletal Provider 10/09/22 05/01/24 Livan Sharif MD [address] [facility] [address] [place] [address] Assigned Heart and Vascular Provider 11/06/22 11/12/22 Catherine Cm MD [address] [facility] [address] [place] [address] Assigned Heart and Vascular Provider 11/13/22 05/27/23 Sydnie Martinez RN Personal Advocate & Liaison (PAL) Family Medicine 03/28/23 07/31/23 Alfonso Renteria MD 5775 [facility] 200 [place] [address] Assigned Neuroscience Provider 04/02/23 Cheng Todd PA-C [address] [place] [address] [phone] Assigned PCP 04/30/23 07/15/23 Radha Lomeli APRN GEOLOGICAL ENGINEERING TEACHER [address] [place] [address] Assigned Heart and Vascular Provider 05/28/23 Jelena David OD 3305 [facility] [place] [address] MD Ophthalmology 06/15/23 Pao Joseph, RN Personal Advocate & Liaison (PAL) Nurse 08/01/23 11/07/23 Esha Grimm PA-C [address] [place] [address] Assigned PCP 07/16/23 Valery Veronica PA-C [address] [place] [address] 248885 Physician Warehouse Freight Handler Dermatology 09/19/23 Rey Tay MD [address] [place] [address] 449325 MD Gastroenterology 09/20/23 Rocky Zepeda DO [address] [place] [address] 665765 Physician Gastroenterology 09/20/23 Philip Dumont MD [address] [place] [address] 939625 Physician Ophthalmology 09/22/23 Meredith Carrera PA-C [address] [place] [address] 988585 Assigned Gastroenterology Provider 11/01/23 Neil Kent MD [address] 786050 Dermatology 11/02/23 [place] [address] [place] [address] Neurological Surgery 12/26/23 Audrey Waite PA-C 500 [place] [address] Physician Warehouse Freight Handler Dermatology 02/28/24 Valery Veronica PA-C [address] [place] [address] Physician Warehouse Freight Handler Dermatology 04/10/24 Herminia Hatch MD [address] [place] [address] [phone] Assigned Rheumatology Provider 07/02/24 documented as of this encounter
--- OUTSIDE RECORDS SUMMARY | 2024-08-28 19:07 | XMS_ITS | Encounter Summary ---
Author Organization [facility] Address [address] [place] [address] Care Team Providers Care Salon Leader Name Role Phone Diana Desir [facility] Unavailable Rain Galaviz PA-C Unavailable Tavia Wyatt MD Unavailable Erica Farrell APRN CORRUGATED BOX MACHINE OPERATOR Unavailable Rich Barrett MD Unavailable [phone] Neil Kent MD Unavailable Diana Desir [facility] Unavailable Livan Sharif MD Unavailable Catherine Cm MD Unavailable + Valery Veronica PA-C Unavailable Brea Quinn PACKAGING SUPERVISOR CORRUGATED BOX MACHINE OPERATOR Unavailable Brea Quinn PACKAGING SUPERVISOR CORRUGATED BOX MACHINE OPERATOR Unavailable Jose Francisco Johnson MD Unavailable Alfonso Renteria MD Unavailable [phone] Esha Grimm PA-C Primary Care Provider [phone] Radha Lomeli APRN CORRUGATED BOX MACHINE OPERATOR Unavailable Jelena David OD Unavailable Pao Joseph RN Unavailable Unavailable Esha Grimm PA-C Unavailable [phone] Valery Veronica PA-C Unavailable Rey Tya MD Unavailable Rocky Zepeda DO Unavailable Philip Dumont MD Unavailable [phone] Meredith Carrera PA-C Unavailable Neil Kent MD Unavailable Juan Pablo Emmanuel MD Unavailable Audrey Waite PA-C Unavailable [phone] Valery Veronica PA-C Unavailable Herminia Hatch MD Unavailable Reason for Visit * Reason Onset Date Comments Medication Question 10/21/2023 omeprazole Encounter Details Date Type Department Care Team (Late st Contact Info) Description 10/21/2023 Telephone [facility] Gastroenterology Clinic [address] [place] [address] Meredith Carrera PA-C [address] [place] [address] Medication Question (omeprazole ) Social History [...] Answer Date Recorded PHQ-2 Score 0 10/25/2023 [facility] - Occupational Stress Questionnaire Answer [...] exercise at this level? 30 min 03/10/2023 Deadwood Depression Scale Answer Date Recorded Deadwood Depression Score 5 01/14/2021 Last EPDS Self [...] CDT Legal Sex Female 4:13 AM DRAWING IN HAND Gender Identity Female 03/02/2021 5:45 PM [...] routed to: [facility] GA[facility]OLOGY [facility] [place][id number][place] Travel Screening: Not Applicable documented in this encounter Plan of Treatment Upcoming Encounters Date Type Department Care Team (Late st Contact Info) Description 10/23/2024 9:30 AM CDT Office Visit [facility] Neurology [facility] [address] [facility], [address] [place] [phone] [place] [address] [place], [place] 8[address] Johnny Penn MD 6019 [facility] [place] 307865 documented as of this encounter Visit Diagnoses Not on filedocumented in this encounter Additional Health Concerns Infection Onset Date Last Indicated Resolved Time Rule Out COVID-19 12/26/2023 12/26/2023 12/26/2023 9:50 AM CDT Rule Out COVID-19 04/09/2024 04/09/2024 04/10/2024 6:48 PM CDT Assessment Noted Time PHQ-9 Depression Total Score: 4 06/20/20 23 8:40 AM DRAWING IN HAND documented as of this encounter Care Teams Salon Leader Relationship Specialty Start Date End Date Esha Grimm PA-C [address] [place] [address] PCP - General Family Medicine 05/04/23 Diana Desir, [facility] [address] [place] [address] Pharmacist Pharmacist 04/17/21 Rain Galaviz PA-C [address] [place] [address] [address] [facility] [place] [address] Physician Watchmaking Teacher Dermatology 04/28/21 Tavia Wyatt MD [address] [place] [address] [address] [place] [address] Dermatology 07/14/21 Erica Farrell APRN CORRUGATED BOX MACHINE OPERATOR [address] [place], [place] 74[address] Nurse Practitioner Cardiovascular Disease 09/09/21 Rich Barrett MD 516 [facility] [address] [place], [place] 167395 Physician Ophthalmology 01/21/22 Neil Kent MD 500 [place], [place] 237435 Dermatology 02/24/22 Diana Desir, [facility] [address] [place] [address] 067146 Assigned [place] Pharmacist 04/07/22 Livan Sharif MD [address], [facility]00 [place], [place] [address] Cardiovascular Disease 05/14/22 Catherine Cm MD 6405 [facility] S [address] 0[address] Cardiovascular Disease 07/21/22 Valery Veronica, PA-C [address] [place] [address] 551425 Physician Watchmaking Teacher Dermatology 07/21/22 Brea Quinn APRN CORRUGATED BOX MACHINE OPERATOR 500 [place] [address] Nurse Practitioner Dermatology 09/21/22 Brea Quinn APRN CORRUGATED BOX MACHINE OPERATOR 6401 [facility] [place] [address] Assigned Surgical Provider 10/09/22 05/01/24 [place] [address] [address] [facility] 300 [place] [address] Assigned Musculoskeletal Provider 10/09/22 05/01/24 Alfonso Renteria MD 5775 [facility] 200 [place], [place] 105076 Assigned Neuroscience Provider 04/02/23 Radha Lomeli APRN CORRUGATED BOX MACHINE OPERATOR [address] [place] 6018600 [place] [address] Assigned Heart and Vascular Provider 05/28/23 Jelena David OD [address] [facility] [place] [address] Ophthalmology 06/15/23 Pao Joseph, VJ Personal Advocate & Liaison (PAL) Nurse 08/01/23 11/07/23 Esha Grimm PA-C [address] [place] [phone] Assigned PCP 07/16/23 Valery Veronica PA-C 909 [place] [address] Physician Watchmaking Teacher Dermatology 09/19/23 Rey Tay MD 909 [place] [address] Gastroenterology 09/20/23 Rocky Zepeda DO 500 [place] [address] Physician Gastroenterology 09/20/23 Philip Dumont MD 6 [place] [address] Physician Ophthalmology 09/22/23 Meredith Carrera PA-C 9 [place] [address] Assigned Gastroenterology Provider 11/01/23 Neil Kent MD [address] [address] Dermatology 11/02/23 [place] [address] [address] Neurological Surgery 12/26/23 Audrey Waite PA-C 500 [place] [address] Physician Watchmaking Teacher Dermatology 02/28/24 Valery Veronica PA-C [id number] [address] [place] [address] Physician Watchmaking Teacher Dermatology 04/10/24 Herminia Hatch MD [facility]5 [place], [place] [phone] Assigned Rheumatology Provider 07/02/24 documented as of this encounter
--- OUTSIDE RECORDS SUMMARY | 2024-08-28 19:07 | XMS_ITS | Encounter Summary ---
Author Organization [facility] Address [address] [place] [address] Care Team Providers Care Machine Ii Engraver Name Role Phone Lita Oseguera Unavailable Unavailable Marija Edgar APRN PAINTER DECORATOR Primary Care Provider + Chanelle Mccann APRN CNM Unavailab le Kyara De La Fuente RN Unavailable [phone] Marija Edgar APRN PAINTER DECORATOR Unavailable Mynor Broussard MD Unavailable [phone] Keisha Dotson MD Unavailable Mary Mejia Unavailable Unavailable Stacey Briones SOAKERS SUPERVISOR Unavailable Lesley Guillermo CHW Unavailable Mary Mejia Unavailable Unavailable Lita Oseguera Unavailable Unavailable Galo Burrell MD Unavailable Unavailable Cristina Wood Unavailable Lesley Guillermo CHW Unavailable Meredith Bedoya Unavailable Unavailable Cristina Wood Unavailable Diana Desir [facility] Unavailable Ruhland, Rain Lena PA-C Unavailable Summer Lara MD Unavailable [phone] Summer Lara MD Unavailable [phone] Summer Lara MD Unavailable [phone] Tavia Wyatt MD Unavailable [phone] Johnny Murillo MD Unavailable +1- Erica Farrell PURCHASING ENGINEER PAINTER DECORATOR Unavailable VikasTeresita H Unavailable Tavia Wyatt MD Unavailable [phone] Diana Desir [facility] Unavailable [phone] Rich Barrett MD Unavailable Neil Kent MD Unavailable Roney Story [facility] Unavailable Erica Farrell APRN PAINTER DECORATOR Unavailable Diana Desir [facility] Unavailable [phone] Jelena David OD Unavailable Galo Burrell MD Unavailable Unavailable Livan Sharif MD Unavailable Livan Sharif MD Unavailable + Catherine Cm MD Unavailable + Valery Veronica PA-C Unavailable [phone] Catherine Cm MD Unavailable + Johnny Murillo MD Unavailable +1- Brea Quinn PURCHASING ENGINEER PAINTER DECORATOR Unavailable +[phone] Brea Quinn PURCHASING ENGINEER PAINTER DECORATOR Unavailable [phone] Jose Francisco Johnson MD Unavailable Livan Sharif MD Unavailable Catherine Cm MD Unavailable + Sydnie Martinez RN Unavailable Unavailable Alfonso Renteria MD Unavailable [phone] Esha Grimm PA-C Primary Care Provider Cheng Todd PA-C Unavailable LomeliRadha APRN PAINTER DECORATOR Unavailable Jelena David OD Unavailable Pao Joseph RN Unavailable Unavailable Esha Grimm PA-C Unavailable Valery Veronica PA-C Unavailable [phone] Rey Tay MD Unavailable Rocky Zepeda DO Unavailable Philip Dumont MD Unavailable [phone] Meredith Carrera PA-C Unavailable Neil Kent MD Unavailable Juan Pablo Emmanuel MD Unavailable Audrey Waite PA-C Unavailable JeremíasValery damon PA-C Unavailable [phone] Herminia Hatch MD Unavailable Reason for Visit * Reason Comments Medication Refill Encounter Details Date Type Department Care Team (Late st Contact Info) Description 07/14/[address] [address] Rakesh Cid PA-C [address] [place] [address] Medication Refill Social History Tobacco [...] PM CDT Legal Sex Female 4:13 AM IT SECURITY ANALYST Gender Identity Female 03/02/2021 5:45 PM CDT Sexual Orientation Straight 02/28/2020 12 :51 AM CDT COVID-19 Exposure Response Date Recorded In the last month, have you been in contact with someone who was confirmed or suspected to have Coronavirus / COVID-19? No / Unsure 06/24/2020 3:01 PM IT SECURITY ANALYST documented as of this encounter Miscellaneous Notes * Telephone Encounter - Estephania Black RN - 07/16/2020 11:38 AM IT SECURITY ANALYST Routing refill request to provider for review/approval because: Labs out of range: PHQ9> 4 patient was seen 3 weeks ago. Estephania Black RN Flex SECURITY ANALYST * Telephone Encounter - Brea Perry RN - 07/16/2020 11:34 AM IT SECURITY ANALYST Routing to correct clinic. SECURITY ANALYST documented in this encounter Plan of Treatment Upcoming Encounters Date Type Department Care Team (Late st Contact Info) Description 10/23/2024 9:30 AM CDT Office Visit [facility] [place] [address] [place] [address], [address] [place] [address] [place] [address] [place] 388607 Johnny Penn MD [address] [id number] documented as of this encounter Visit Diagnoses Diagnosis Anxiety Anxiety state, unspecified documented in this encounter Additional Health Concerns Infection Onset Date Last Indicated Resolved Time Rule Out COVID-19 07/30/2020 07/30/2020 07/30/2020 7:11 PM IT SECURITY ANALYST Rule Out COVID-19 08/30/2020 08/30/2020 08/30/2020 5:05 PM IT SECURITY ANALYST Rule Out COVID-19 09/24/2020 09/24/2020 09/24/2020 9:24 AM CDT Rule Out COVID-19 11/05/2020 11/05/2020 11/06/2020 1:09 PM CDT Rule Out COVID-19 05/11/2021 05/11/2021 05/13/2021 10:18 AM CDT Rule Out COVID-19 07/13/2021 07/13/2021 07/14/2021 3:04 PM IT SECURITY ANALYST Rule Out COVID-19 07/18/2021 07/18/2021 07/20/2021 1:56 PM IT SECURITY ANALYST COVID-19 07/18/2021 07/18/2021 08/08/2021 11:3 9 PM IT SECURITY ANALYST Rule Out COVID-19 12/18/2021 12/18/2021 12/19/2021 11:34 AM CDT Rule Out COVID-19 02/24/2022 02/24/2022 02/25/2022 1:08 PM CDT Rule Out COVID-19 04/26/2022 04/26/2022 04/26/2022 6:47 AM CDT Rule Out COVID-19 05/17/2022 05/17/2022 05/17/2022 10:20 PM IT SECURITY ANALYST Rule Out COVID-19 06/09/2022 06/09/2022 06/09/2022 9:35 AM IT SECURITY ANALYST COVID-19 06/09/2022 06/09/2022 06/30/2022 11:4 1 PM IT SECURITY ANALYST Rule Out COVID-19 11/10/2022 11/10/2022 11/11/2022 12:17 PM CDT Rule Out COVID-19 03/07/2023 03/07/2023 03/07/2023 1:20 PM CDT Rule Out COVID-19 12/26/2023 12/26/2023 12/26/2023 9:50 AM CDT Rule Out COVID-19 04/09/2024 04/09/2024 04/10/2024 6:48 PM CDT Assessment Noted Time PHQ-9 Depression Total Score: 9 06/25/20 7:04 AM IT SECURITY ANALYST documented as of this encounter Care Teams Machine Ii Engraver Relationship Specialty Start Date End Date Marija Edgar APRN PAINTER DECORATOR PCP - General Nurse Practitioner 04/30/20 04/14/23 Esha Grimm PA-C [address] [place] [phone] PCP - General Family Medicine 05/04/23 Lita Oseguera Personal Advocate & Liaison (PAL) 02/28/20 03/27/23 Chanelle Mccann APRN CNAdam [address] [place] [address] [address] [place], [place] 484957 Assigned OBGYN Provider 05/02/2005/09 Kyara De La Fuente, RN Specialty Heavy Rail Train Operator Neurology 06/04/20 03/05/21 Marija Edgar APRN PAINTER DECORATOR Assigned PCP 06/08/20 04/29/23 Mynor Broussard MD [address] [facility] [address] [place], [place] [address] Assigned Surgical Provider 06/01/20 11/28/21 Keisha Dotson MD [address] [place] [address] [id number] Assigned Neuroscience Provider 06/04/20 04/01/23 Aditi Mejiandra Financial Resource Worker 08/07/20 08/21/20 AnselmoStacey, [facility] Lead Heavy Rail Train Operator Primary Care - CC 08/11/2012/30 Lesley Guillermo, [facility] Community Health Worker 08/11/2010/01 Nikiatimothy Mary Financial Resource Worker 09/02/20 10/06/20 Lita Oseguera Personal Advocate & Liaison (PAL) Family Medicine 09/10/20 09/21/20 Galo Burrell MD Assigned Heart and Vascular Provider 10/05/20 04/02/22 Cristina Wood Financial Resource Worker 10/07/20 10/14/20 Lesley Guillermo, [facility] Community Health Worker 10/23/2012/30 Meredith Bedoya Financial Resource Worker 10/23/20 11/23/20 Cristina Wood Financial Resource Worker 02/09/21 02/09/21 Diana Desir, [facility] [address] [place] [address] Pharmacist Pharmacist 04/17/21 Rain Galaviz PA-C [address] [place] [address] [address] [facility] [place] [address] Physician Cytology Manager Dermatology 04/28/21 Summer Lara MD [address] [place], [place] [address] Assigned OBGYN Provider 05/10/2105/23 Summer Lara MD [address] [place] [address] Assigned OBGYN Provider 05/31/21 2 Summer Lara MD [address] [place] [address] Assigned OBGYN Provider 05/24/2105/30 Tavia Wyatt MD [address] [place], [place] [address] Dermatology 07/14/21 Johnny Murillo MD [address] [place] [address] Assigned Musculoskeletal Provider 08/30/21 03/17/22 Erica Farrell APRN PAINTER DECORATOR [address] [facility] [address] [place] [address] Nurse Practitioner Cardiovascular Disease 09/09/21 Teresita Bean [facility] [address] [place] [phone] Pharmacist Pharmacist 09/24/21 09/29/21 Tavia Wyatt MD [address] [place], [place] 253270 Assigned Surgical Provider 11/29/21 05/07/22 Diana Desir, [facility] [address] [place] [address] Assigned MTM Pharmacist 01/02/22 Rich Barrett MD [address] [id number] Physician Ophthalmology 01/21/22 Neil Kent MD [address] [place], [place] [address] Dermatology 02/24/22 Roney Story DPM [address] [facility] [address] [place], [place] [address] Assigned Musculoskeletal Provider 03/20/22 08/13/22 Erica Farrell APRN PAINTER DECORATOR [address] [place] [address] Assigned Heart and Vascular Provider 04/03/22 04/16/22 Diana Desir, [facility] [address] [place] [address] Assigned MTM Pharmacist 04/07/22 [place] [address] [facility] [address] Assigned Surgical Provider 05/08/22 10/08/22 Galo Burrell MD Assigned Heart and Vascular Provider 04/17/22 06/11/22 Livan Sharif MD [address] [place] [id number] Cardiovascular Disease 05/14/22 Livan Sharif MD [address] [facility] [address] [place] [address] Assigned Heart and Vascular Provider 06/12/22 07/23/22 Catherine Cm MD [address] [facility] [address] [place] [address] Cardiovascular Disease 07/21/22 Valery Veronica, PA-C [address] [place] [address] 860835 Physician Cytology Manager Dermatology 07/21/22 Catherine Cm MD [address] Sylvia [facility] [place] [place] [address] Assigned Heart and Vascular Provider 07/24/22 11/05/22 Johnny Murillo MD [address] [place] [address] 167844 Assigned Musculoskeletal Provider 08/14/22 10/08/22 Brea Quinn APRN PAINTER DECORATOR [address] [place] [address]1975 Nurse Practitioner Dermatology 09/21/22 Brea Quinn APRN PAINTER DECORATOR [address] [place] [address] [place] [id number] Assigned Surgical Provider 10/09/22 05/01/24 [place] [address] RAZO [address] [place] [address] Assigned Musculoskeletal Provider 10/09/22 05/01/24 Livan Sharif MD [address], [facility] [address] [place] 37[address] Assigned Heart and Vascular Provider 11/06/22 11/12/22 Catherine Cm MD [address] [place], [place] 28[address] Assigned Heart and Vascular Provider 11/13/22 05/27/23 Sydnie Martinez, VJ Personal Advocate & Liaison (PAL) Family Medicine 03/28/23 07/31/23 Alfonso Renteria MD [address] [facility] 200 [place] [address] Assigned Neuroscience Provider 04/02/23 Cheng Todd PA-C [address] [place] [address] [phone] Assigned PCP 04/30/23 07/15/23 Radha Lomeli, ARLENE PAINTER DECORATOR [address] [place] [address] Assigned Heart and Vascular Provider 05/28/23 Jelena David OD [address] [facility] [address] Ophthalmology 06/15/23 Pao Joseph, VJ Personal Advocate & Liaison (PAL) Nurse 08/01/23 11/07/23 Esha Grimm PAUcheC [address] [place] [address] Assigned PCP 07/16/23 Valery Veronica PA-C [address] [place], [place] [address] Physician Cytology Manager Dermatology 09/19/23 Rey Tay MD [address] [place], [place] 4024[address] MD Gastroenterology 09/20/23 Rocky Zepeda DO [address] [place], [place] [address] Physician Gastroenterology 09/20/23 Philip Dumont MD [address] [place] [address] 658085 Physician Ophthalmology 09/22/23 Meredith Carrera PA-C [address] [place] [address] 328055 Assigned Gastroenterology Provider 11/01/23 Neil Kent MD [address] [address] Dermatology 11/02/23 [place] [address] [place] [address] Neurological Surgery 12/26/23 Audrey Waite PA-C [address] [place] [address] Physician Cytology Manager Dermatology 02/28/24 Valery Veronica PA-C [address] [place] [address] Physician Cytology Manager Dermatology 04/10/24 Herminia Hatch MD [address] [place] [address] [phone] Assigned Rheumatology Provider 07/02/24 documented as of this encounter
--- OUTSIDE RECORDS SUMMARY | 2024-08-28 19:08 | XMS_ITS | Encounter Summary ---
Author Organization [facility] Address [address] [place] [address] Care Team Providers Care Munitions Factory Worker Name Role Phone Rakesh Cid PA-C Unavailable [phone] Rakesh Cid PA-C Primary Care Provider [phone] Lita Oseguera Unavailable Unavailable Rakesh Cid PA-C Unavailable [phone] Isaura Lamar RN Unavailable Unavailable Lita Oseguera Unavailable Unavailable Marija Edgar APRN BUILDING PERFORMANCE CONSULTANT Primary Care Provider + Chanelle Mccann APRN CN Unavailab le Lesley Guillermo CHKamryn Unavailable [phone] Kyara De La Fuente RN Unavailable [phone] Marija Edgar APRN BUILDING PERFORMANCE CONSULTANT Unavailable [phone] Mynor Broussard MD Unavailable [phone] Keisha Dotson MD Unavailable [phone] Mary Mejia Unavailable Unavailable Stacey Briones MANAGER SEMICONDUCTOR Unavailable [phone] Lesley Guillermo CHW Unavailable [phone] Mary Mejia Unavailable Unavailable Lita Oseguera Unavailable Unavailable Galo Burrell MD Unavailable Unavailable Cristina Wood Unavailable Lesley Guillermo [facility] Unavailable Meredith Bedoya Unavailable Unavailable Cristina Wood Unavailable ThangKendrickDiana Stanislav [facility] Unavailable [phone] Rain GalavizC Unavailable Summer Lara MD Unavailable Summer Lara MD Unavailable +[phone] Summer Lara MD Unavailable [phone] Tavia Wyatt MD Unavailable [phone] Johnny Murillo MD Unavailable Erica Farrell APRN BUILDING PERFORMANCE CONSULTANT Unavailable Teresita Bean [facility] Unavailable Tavia Wyatt MD Unavailable [phone] [phone] Diana [place] [facility] Unavailable [phone] Rich Barrett MD Unavailable [phone] Neil Kent MD Unavailable Roney Story DPM Unavailable Erica Farrell [employer]CROS[employer]FT INFRASTRUCTURE CONSULTANT BUILDING PERFORMANCE CONSULTANT Unavailable + Diana Desir [facility] Unavailable [phone] Jelena David OD Unavailable Galo Burrell MD Unavailable Unavailable Livan Sharif MD Unavailable + Livan Sharif MD Unavailable + Catherine Cm MD Unavailable + Valery VeronicaC Unavailable [phone] Catherine Cm MD Unavailable + Johnny Murillo MD Unavailable [phone] Brea Quinn MICROSOFT INFRASTRUCTURE CONSULTANT BUILDING PERFORMANCE CONSULTANT Unavailable [phone] Brea Quinn [employer]CROSOFT INFRASTRUCTURE CONSULTANT BUILDING PERFORMANCE CONSULTANT Unavailable [phone] Jose Francisco Johnson MD Unavailable Livan Sharif MD Unavailable Catherine Cm MD Unavailable + Sydnie Martinez RN Unavailable Unavailable Alfonso Renteria MD Unavailable Esha Grimm PA-C Primary Care Provider Cheng Todd PA-C Unavailable Radha Lomeli [employer] INFRASTRUCTURE CONSULTANT BUILDING PERFORMANCE CONSULTANT Unavailable Jelena David OD Unavailable [phone] Pao Joseph RN Unavailable Unavailable Esha Grimm PA-C Unavailable [phone] Valery Veronica PA-C Unavailable Rey Tay MD Unavailable Rocky Zepeda DO Unavailable Philip Dumont MD Unavailable Meredith Carrera PA-C Unavailable Neil Kent MD Unavailable Juan Pablo Emmanuel MD Unavailable Audrey Waite PA-C Unavailable Valery Veronica PA-C Unavailable [phone] Herminia Hatch MD Unavailable Encounter Details Date Type Department Care Team (Late st Contact Info) Description 02/27/[address], [address] [place] [address] Rakesh Cid PA-C [address] [place] [address] Social History Tobacco Use Types Packs/Day Years [...] CDT Legal Sex Female 4:13 AM SPECIAL ASSETS OFFICER Gender Identity Female 03/02/2021 5:45 PM [...] message?: Yes at Home number on file [phone] (home) Violet Jeffrey Patient Live In Housekeeper documented in this encounter Plan of Treatment Upcoming Encounters Date Type Department Care Team (Late st Contact Info) Description 10/23/2024 9:30 AM CDT Office Visit [facility] - [address], [address] [place] [address] [place] [address] [place], [place] [address] Johnny Penn MD [address] [place], [place] [address] documented as of this encounter Visit Diagnoses Not on filedocumented in this encounter Additional Health Concerns Infection Onset Date Last Indicated Resolved Time Rule Out COVID-19 07/30/2020 07/30/2020 07/30/2020 7:11 PM SPECIAL ASSETS OFFICER Rule Out COVID-19 08/30/2020 08/30/2020 08/30/2020 5:05 PM SPECIAL ASSETS OFFICER Rule Out COVID-19 09/24/2020 09/24/2020 09/24/2020 9:24 AM CDT Rule Out COVID-19 11/05/2020 11/05/2020 11/06/2020 1:09 PM CDT Rule Out COVID-19 05/11/2021 05/11/2021 05/13/2021 10:18 AM CDT Rule Out COVID-19 07/13/2021 07/13/2021 07/14/2021 3:04 PM SPECIAL ASSETS OFFICER Rule Out COVID-19 07/18/2021 07/18/2021 07/20/2021 1:56 PM SPECIAL ASSETS OFFICER COVID-19 07/18/2021 07/18/2021 08/08/2021 11:3 9 PM SPECIAL ASSETS OFFICER Rule Out COVID-19 12/18/2021 12/18/2021 12/19/2021 11:34 AM CDT Rule Out COVID-19 02/24/2022 02/24/2022 02/25/2022 1:08 PM CDT Rule Out COVID-19 04/26/2022 04/26/2022 04/26/2022 6:47 AM CDT Rule Out COVID-19 05/17/2022 05/17/2022 05/17/2022 10:20 PM SPECIAL ASSETS OFFICER Rule Out COVID-19 06/09/2022 06/09/2022 06/09/2022 9:35 AM SPECIAL ASSETS OFFICER COVID-19 06/09/2022 06/09/2022 06/30/2022 11:4 1 PM SPECIAL ASSETS OFFICER Rule Out COVID-19 11/10/2022 11/10/2022 11/11/2022 12:17 PM CDT Rule Out COVID-19 03/07/2023 03/07/2023 03/07/2023 1:20 PM CDT Rule Out COVID-19 12/26/2023 12/26/2023 12/26/2023 9:50 AM CDT Rule Out COVID-19 04/09/2024 04/09/2024 04/10/2024 6:48 PM CDT Assessment Noted Time PHQ-9 Depression Total Score: 11 020 1:14 PM CDT documented as of this encounter Care Teams Munitions Factory Worker Relationship Specialty Start Date End Date Rakesh Cid PA-C [address] [place] [address] PCP - General Physician Hose Coupling Joiner - Medical 05/14/19 04/29/20 Marija Edgar APRN CNP PCP - General Nurse Practitioner 04/30/20 04/14/23 Esha Grimm PA-C [address] [place] [address] PCP - General Family Medicine 05/04/23 Rakesh Cid PA-C [address] [place] [address] Assigned PCP 05/06/19 03/01/20 Lita Oseguera Personal Advocate & Liaison (PAL) 02/28/20 03/27/23 Rakesh Cid PA-C [address] [place] [address] Assigned PCP 03/02/20 06/07/20 Isaura Lamar, RN Personal Advocate & Liaison (PAL) Family Practice 04/03/20 04/06/20 Lita Oseguera Personal Advocate & Liaison (PAL) 04/07/20 04/29/20 [place] [address] [place] [address] 200 [place], [place] [address] Assigned OBGYN Provider 05/02/2005/09 Lesley Guillermo, W Community Health Worker 05/30/2005/12 Kyara De La Fuente, VJ Specialty Stock Supervisor Neurology 06/04/20 03/05/21 Marija Edgar APRN BUILDING PERFORMANCE CONSULTANT Assigned PCP 06/08/20 04/29/23 Mynor Broussard MD [address] [facility] 500 [place], [place] [address] Assigned Surgical Provider 06/01/20 11/28/21 Keisha Dotson MD [address] [place], [place] [address]28[address] Assigned Neuroscience Provider 06/04/20 04/01/23 Mary Mejia Financial Resource Worker 08/07/20 08/21/20 Stacey Briones, MANAGER SEMICONDUCTOR Lead Stock Supervisor Primary Care - CC 08/11/2012/30 Lesley Guillermo CHW Community Health Worker 08/11/2010/01 Mary Mejia Financial Resource Worker 09/02/20 10/06/20 Lita Oseguera Personal Advocate & Liaison (PAL) Family Medicine 09/10/20 09/21/20 Galo Burrell MD Assigned Heart and Vascular Provider 10/05/20 04/02/22 Cristina Wood Financial Resource Worker 10/07/20 10/14/20 Lesley Guillermo, [facility] Community Health Worker 10/23/2012/30 Meredith Bedoya Financial Resource Worker 10/23/20 11/23/20 Cristina Wood Financial Resource Worker 02/09/21 02/09/21 Diana Desir, [facility] [address] [facility] [place], [place] [address] Pharmacist Pharmacist 04/17/21 Rain Galaviz PA-C [address] [place] [address] [address] [place], [place] [id number] Physician Hose Coupling Joiner Dermatology 04/28/21 Summer Lara MD [address] [place] [address] 095154 Assigned OBGYN Provider 05/10/2105/23 Summer Lara MD [address] [place] [address] 587[address] Assigned OBGYN Provider 05/31/21 Summer Lara MD [address] [place] [address] Assigned OBGYN Provider 05/24/2105/30 Tavia Wyatt MD [address] [place] [address] Dermatology 07/14/21 Johnny Murillo MD [address] [place] [address] Assigned Musculoskeletal Provider 08/30/21 03/17/22 Erica Farrell APRN BUILDING PERFORMANCE CONSULTANT [address] [place] [address] Nurse Practitioner Cardiovascular Disease 09/09/21 Teresita Bean, [facility] [address] [facility] [address] [place] [id number] Pharmacist Pharmacist 09/24/21 09/29/21 Tavia Wyatt MD [address] [place] [address] Assigned Surgical Provider 11/29/21 05/07/22 Diana Desir, [facility] [address] [place] [address] Assigned MTM Pharmacist 01/02/22 Rich Barrett MD [address] [facility] [address] [place], [place] [address] Physician Ophthalmology 01/21/22 Neil Kent MD 500 [place] [address] Dermatology 02/24/22 Roney Story DPM [address] [facility] [address] [place], [place] [address] Assigned Musculoskeletal Provider 03/20/22 08/13/22 Erica Farrell APRN BUILDING PERFORMANCE CONSULTANT 1700 [place] [address] Assigned Heart and Vascular Provider 04/03/22 04/16/22 Diana Desir, [facility] 3033 [place], [place] 742066 Assigned MTM Pharmacist 04/07/22 Jelena David OD [address] [facility] [place] [address] Assigned Surgical Provider 05/08/22 10/08/22 Galo Burrell MD Assigned Heart and Vascular Provider 04/17/22 06/11/22 Livan Sharif MD [address], [facility]00 [place], [place] [address] Cardiovascular Disease 05/14/22 Livan Sharif MD [address], [facility]00 [place] [address] Assigned Heart and Vascular Provider 06/12/22 07/23/22 Catherine Cm MD [address] [facility]00 [place] [address] Cardiovascular Disease 07/21/22 Valery Veronica, PA-C [address] [place] [address] Physician Hose Coupling Joiner Dermatology 07/21/22 Catherine Cm MD [address] [facility]00 [place] [address] Assigned Heart and Vascular Provider 07/24/22 11/05/22 Johnny Murillo MD [address] [address] Assigned Musculoskeletal Provider 08/14/22 10/08/22 Brea Quinn APRN BUILDING PERFORMANCE CONSULTANT [address] [place] [address] 263035 Nurse Practitioner Dermatology 09/21/22 Brea Quinn APRN BUILDING PERFORMANCE CONSULTANT [address] [address]1932 Assigned Surgical Provider 10/09/22 05/01/24 [place] [address] [address] Assigned Musculoskeletal Provider 10/09/22 05/01/24 Livan Sharif MD [address] [facility] [address] [place] [address] Assigned Heart and Vascular Provider 11/06/22 11/12/22 Catherine Cm MD [address] [facility] [address] [place] [address] Assigned Heart and Vascular Provider 11/13/22 05/27/23 Sydnie Martinez RN Personal Advocate & Liaison (PAL) Family Medicine 03/28/23 07/31/23 Alfonso Renteria MD [address] [facility] [address] 200 [place] [address] Assigned Neuroscience Provider 04/02/23 Cheng Todd PA-C [address] [place] [address] Assigned PCP 04/30/23 07/15/23 Radha Lomeli APRN BUILDING PERFORMANCE CONSULTANT [address] [facility] [address] [place] [address] Assigned Heart and Vascular Provider 05/28/23 Jelena David OD [address] [facility] [address] Ophthalmology 06/15/23 Pao Joseph, VJ Personal Advocate & Liaison (PAL) Nurse 08/01/23 11/07/23 Esha Grimm PA-C [address] [place] [address] Assigned PCP 07/16/23 Valery Veronica PA-C 9 [place], [place] [address] Physician Hose Coupling Joiner Dermatology 09/19/23 Rey Tay MD [address] [place] [address] Gastroenterology 09/20/23 Rocky Zepeda DO 500 [place] [address] Physician Gastroenterology 09/20/23 Philip Dumont MD 6 [place] [address] Physician Ophthalmology 09/22/23 Meredith Carrera PA-C [address] [place] [address] Assigned Gastroenterology Provider 11/01/23 Neil Kent MD [address] [address] MD Dermatology 11/02/23 [place] [address] [address] Neurological Surgery 12/26/23 Audrey Waite PA-C 500 [place] [address] Physician Hose Coupling Joiner Dermatology 02/28/24 Valery Veronica PA-C 633575 [address] [address] Physician Hose Coupling Joiner Dermatology 04/10/24 Herminia Hatch MD [facility]5 [place], [place] [address] Assigned Rheumatology Provider 07/02/24 documented as of this encounter
--- OUTSIDE RECORDS SUMMARY | 2024-08-28 19:08 | XMS_ITS | Encounter Summary ---
Author Organization [facility] Address [address] [place] [address] Care Team Providers Care Information Security Risk Analyst Name Role Phone Lita Oseguera Unavailable Unavailable Marija Edgar APRN ORACLE BPM DEVELOPER Primary Care Provider + Marija Edgar APRN ORACLE BPM DEVELOPER Unavailable [phone] Mynor Broussard MD Unavailable [phone] Keisha Dotson MD Unavailable [phone] Galo Burrell MD Unavailable Unavailable Diana Desir [facility] Unavailable [phone] Rain Galaviz PA-C Unavailable Summer Lara MD Unavailable [phone] Tavia Wyatt MD Unavailable Johnny Murillo MD Unavailable Erica Farrell APRN ORACLE BPM DEVELOPER Unavailable Teresita Bean [facility] Unavailable Tavia Wyatt MD Unavailable Diana Desir [facility] Unavailable Rich Barrett MD Unavailable [phone] Neil Kent MD Unavailable Roney Story DPM Unavailable Erica Farrell SHOVEL LOG LOADER OPERATOR ORACLE BPM DEVELOPER Unavailable Thang Diana Stanislav [facility] Unavailable Jelena David OD Unavailable Galo Burrell MD Unavailable Unavailable Livan Sharif MD Unavailable + Livan Sharif MD Unavailable + Catherine Cm MD Unavailable + Valery Veronica PA-C Unavailable [phone] Catherine Cm MD Unavailable + Johnny Murillo MD Unavailable [phone] Brea Quinn SHOVEL LOG LOADER OPERATOR ORACLE BPM DEVELOPER Unavailable [phone] Brea Quinn SHOVEL LOG LOADER OPERATOR ORACLE BPM DEVELOPER Unavailable [phone] Jose Francisco Johnson MD Unavailable Livan Sharif MD Unavailable + IsCatherine hobbs MD Unavailable + Sydnie Martinez RN Unavailable Unavailable Alfonso Renteria MD Unavailable Esha Grimm-C Primary Care Provider Cheng Todd PA-C Unavailable Radha Lomeli SHOVEL LOG LOADER OPERATOR ORACLE BPM DEVELOPER Unavailable [phone] Jelena David OD Unavailable Pao Joseph RN Unavailable Unavailable Esha Grimm-C Unavailable [phone] JeremíasValery damon PA-C Unavailable [phone] Rey Tay MD Unavailable Rocky Zepeda DO Unavailable Philip Dumont MD Unavailable [phone] Meredith CarreraC Unavailable [phone] Neil Kent MD Unavailable Juan Pablo Emmanuel MD Unavailable [phone] Audrey WaiteC Unavailable [phone] Valery Veronica PA-C Unavailable [phone] Herminia Hatch MD Unavailable Encounter Details Date [...] [facility]? More than 4 times [...] Answer Date Recorded PHQ-2 Score 0 04/02/2021 [facility] Occupat ional [...] in a assisted (including now)? No 08/11/2020 [place] Depression Scale Answer Date Recorded [place] Depression Score 5 01/14/2021 Last EPDS Self Harm Result Not on file 01/14 Education Answer Date Recorded What is the highest level of school you have completed or the highest degree you have received? 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 CONSULTING IT ARCHITECT Gender Identity Female 03/02/2021 5:45 PM CDT Sexual Orientation Straight 02/28/2020 12 :51 AM CDT COVID-19 Exposure Response Date Recorded In the last month, have you been in contact with someone who was confirmed or suspected to have Coronavirus / COVID-19? No / Unsure 08/03/2021 2:24 PM CONSULTING IT ARCHITECT documented as of this encounter Plan of Treatment Upcoming Encounters Date Type Department Care Team (Late st Contact Info) Description 10/23/2024 9:30 AM CDT Office Visit [facility] Neurology [address], [address] [place] [address] [place] [address] [place] [id number] Johnny Penn MD [address] [facility] [place] [address] documented as of this encounter Visit Diagnoses Not on filedocumented in this encounter Additional Health Concerns Infection Onset Date Last Indicated Resolved Time COVID-19 07/18/2021 07/18/2021 08/08/2021 11:3 9 PM CONSULTING IT ARCHITECT Rule Out COVID-19 12/18/2021 12/18/2021 12/19/2021 11:34 AM CDT Rule Out COVID-19 02/24/2022 02/24/2022 02/25/2022 1:08 PM CDT Rule Out COVID-19 04/26/2022 04/26/2022 04/26/2022 6:47 AM CDT Rule Out COVID-19 05/17/2022 05/17/2022 05/17/2022 10:20 PM CONSULTING IT ARCHITECT Rule Out COVID-19 06/09/2022 06/09/2022 06/09/2022 9:35 AM CONSULTING IT ARCHITECT COVID-19 06/09/2022 06/09/2022 06/30/2022 11:4 1 PM CONSULTING IT ARCHITECT Rule Out COVID-19 11/10/2022 11/10/2022 11/11/2022 12:17 PM CDT Rule Out COVID-19 03/07/2023 03/07/2023 03/07/2023 1:20 PM CDT Rule Out COVID-19 12/26/2023 12/26/2023 12/26/2023 9:50 AM CDT Rule Out COVID-19 04/09/2024 04/09/2024 04/10/2024 6:48 PM CDT Assessment Noted Time PHQ-9 Depression Total Score: 2 04/02/20 10:19 AM CDT documented as of this encounter Care Teams Information Security Risk Analyst Relationship Specialty Start Date End Date Marija Edgar APRN ORACLE BPM DEVELOPER PCP - General Nurse Practitioner 04/30/20 04/14/23 Esha Grimm PA-C [address] [place] [address] PCP - General Family Medicine 05/04/23 Lita Oseguera Personal Advocate & Liaison (PAL) 02/28/20 03/27/23 Marija Edgar APRN ORACLE BPM DEVELOPER Assigned PCP 06/08/20 04/29/23 Mynor Broussard MD 6[address] [facility] 500 [place] [address] Assigned Surgical Provider 06/01/20 11/28/21 Keisha Dotson MD 909 [place] [address] Assigned Neuroscience Provider 06/04/20 04/01/23 Galo Burrell MD Assigned Heart and Vascular Provider 10/05/20 04/02/22 Diana Desir, [facility] [address] [place] [address] Pharmacist Pharmacist 04/17/21 Rain Galaviz PA-C [address] [facility] [address] [place] [address] Physician Materials Specialist Dermatology 04/28/21 Summer Lara MD [address] [place] [address] Assigned OBGYN Provider 05/31/21 2 Tavia Wyatt MD [address] [place], [place] [address] Dermatology 07/14/21 Johnny Murillo MD [address] [facility] [address] [place] [address] Assigned Musculoskeletal Provider 08/30/21 03/17/22 Erica Farrell APRN ORACLE BPM DEVELOPER 6405 [facility] [address] [place] [address] Nurse Practitioner Cardiovascular Disease 09/09/21 Teresita Bean, [facility] [address] [place] [address] Pharmacist Pharmacist 09/24/21 09/29/21 Tavia Wyatt MD [address] [place] [address] Assigned Surgical Provider 11/29/21 05/07/22 Diana Desir, [facility] [address] [place] [address] Assigned MTM Pharmacist 01/02/22 Rich Barrett MD [address] [id number] Physician Ophthalmology 01/21/22 Neil Kent MD 500 [place], [place] [address] Dermatology 02/24/22 Roney Story DPM 18017 [facility] 300 [place], [place] [address] Assigned Musculoskeletal Provider 03/20/22 08/13/22 Erica Farrell APRN ORACLE BPM DEVELOPER 1700 [place] [address] Assigned Heart and Vascular Provider 04/03/22 04/16/22 Diana Desir, [facility] [address] [facility] [place] [place] [address] Assigned MTM Pharmacist 04/07/22 FrankieJelena OD [address] [facility] [place] [address] Assigned Surgical Provider 05/08/22 10/08/22 Galo Burrell MD Assigned Heart and Vascular Provider 04/17/22 06/11/22 Livan Sharif MD [address], [address] [place], [place] [address] Cardiovascular Disease 05/14/22 Livan Sharif MD [address], [address] [place], [place] [address] Assigned Heart and Vascular Provider 06/12/22 07/23/22 Catherine Cm MD [address] [place] [address] Cardiovascular Disease 07/21/22 Valery Veronica, PA-C 909 [place], [place] [address] Physician Materials Specialist Dermatology 07/21/22 Catherine Cm MD [address] [place], [place] [address] Assigned Heart and Vascular Provider 07/24/22 11/05/22 Johnny Murillo MD [address] [place] [address] Assigned Musculoskeletal Provider 08/14/22 10/08/22 Brea Quinn APRN ORACLE BPM DEVELOPER 500 [facility] [place], [place] [address] Nurse Practitioner Dermatology 09/21/22 Brea Quinn APRN ORACLE BPM DEVELOPER 6401 [facility] [place], [place] [address] Assigned Surgical Provider 10/09/22 05/01/24 [place] [address] [facility] 300 [place], [place] [address] Assigned Musculoskeletal Provider 10/09/22 05/01/24 Livan Sharif MD [address], [facility] [address] [place] [address] Assigned Heart and Vascular Provider 11/06/22 11/12/22 Catherine Cm MD [address] [facility] [address] [place] [address] Assigned Heart and Vascular Provider 11/13/22 05/27/23 Sydnie Martinez RN Personal Advocate & Liaison (PAL) Family Medicine 03/28/23 07/31/23 Alfonso Renteria MD [address] [facility] 200 [place] [address] Assigned Neuroscience Provider 04/02/23 Cheng Todd PA-C [address] [place] [address] Assigned PCP 04/30/23 07/15/23 Radha Lomeli APRN CNP [address] [facility] [address] [place] [address] Assigned Heart and Vascular Provider 05/28/23 Jelena David OD [address] [facility] [place] [address] MD Ophthalmology 06/15/23 Pao Joseph, VJ Personal Advocate & Liaison (PAL) Nurse 08/01/23 11/07/23 Esha Grimm PA-C [address] [place] [phone] Assigned PCP 07/16/23 Valery Veronica PA-C [address] [place] [address]1115 Physician Materials Specialist Dermatology 09/19/23 Rey Tay MD [address] [place] [address]9865 Gastroenterology 09/20/23 Rocky Zepeda DO [address] [place] [address] 445825 Physician Gastroenterology 09/20/23 Philip Dumont MD [address] [place] [address] Physician Ophthalmology 09/22/23 Meredith Carrera PA-C 909 [place] [address] Assigned Gastroenterology Provider 11/01/23 Neil Kent MD [address] [address] Dermatology 11/02/23 [place] [address] [place] [address] [address] Neurological Surgery 12/26/23 Audrey Waite PA-C 500 [place] [address] Physician Materials Specialist Dermatology 02/28/24 Valery Veronica PA-C 287682 [address], [place] [address] Physician Materials Specialist Dermatology 04/10/24 Herminia Hatch MD [facility]5 [place], [place] [address] Assigned Rheumatology Provider 07/02/24 documented as of this encounter
--- OUTSIDE RECORDS SUMMARY | 2024-08-28 19:08 | XMS_ITS | Encounter Summary ---
Author Organization [facility] Address [address] [place] [address] Care Team Providers Care Director Digital Name Role Phone Lita Oseguera Unavailable Unavailable Marija Edgar APRN MUCK HAULER Primary Care Provider + Marija Edgar APRN MUCK HAULER Unavailable [phone] Mynor Broussard MD Unavailable [phone] Keisha Dotson MD Unavailable [phone] Galo Burrell MD Unavailable Unavailable Diana Desir [facility] Unavailable [phone] Rain Galaviz PA-C Unavailable Summer Lara MD Unavailable [phone] Tavia Wyatt MD Unavailable Johnny Murillo MD Unavailable Erica Farrell APRN MUCK HAULER Unavailable Teresita Bean [facility] Unavailable [phone] Tavia Wyatt MD Unavailable Diana Desir [facility] Unavailable Rich Barrett MD Unavailable [phone] Neil Kent MD Unavailable Roney Story DPM Unavailable Erica Farrell COMPUTER ART INSTRUCTOR MUCK HAULER Unavailable Thang Diana Stanislav [facility] Unavailable Jelena David OD Unavailable Galo Burrell MD Unavailable Unavailable Livan Sharif MD Unavailable + Livan Sharif MD Unavailable + Catherine Cm MD Unavailable + Valery Veronica PA-C Unavailable [phone] Catherine Cm MD Unavailable + Johnny Murillo MD Unavailable [phone] Brea Quinn COMPUTER ART INSTRUCTOR MUCK HAULER Unavailable [phone] Brea Quinn COMPUTER ART INSTRUCTOR MUCK HAULER Unavailable [phone] Jose Francisco Johnson MD Unavailable Livan Sharif MD Unavailable + IsCatherine hobbs MD Unavailable + Sydnie Martinez RN Unavailable Unavailable Alfonso Renteria MD Unavailable Esha Grimm-C Primary Care Provider Cheng Todd PA-C Unavailable Radha Lomeli COMPUTER ART INSTRUCTOR MUCK HAULER Unavailable [phone] Jelena David OD Unavailable Pao Joseph RN Unavailable Unavailable Esha Grimm-C Unavailable [phone] JeremíasValery damon PA-C Unavailable [phone] Rey Tay MD Unavailable Rocky Zepeda DO Unavailable Philip Dumont MD Unavailable [phone] Meredith CarreraC Unavailable [phone] Neil Kent MD Unavailable Juan Pablo Emmanuel MD Unavailable [phone] Audrey WaiteC Unavailable [phone] Valery VeronicaC Unavailable [phone] Herminia Hatch MD Unavailable Encounter Details Date Type Department Care Team (Late st Contact Info) Description 07/14/2021 MyC Medical Advice [address] [address] Lauren Gan, RN Social History [...] you attend chur ch or catholic services? More than 4 times [...] in a fpc (including now)? No 08/11/2020 [place] Depression Scale Answer Date Recorded [place] Depression Score 5 01/14/2021 Last EPDS Self Harm Result Not on file 01/14 Education Answer Date Recorded What is the highest level of school you have completed or the highest degree you have received? 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 GLASS CLEANING MACHINE TENDER Gender Identity Female 03/02/2021 5:45 PM CDT Sexual Orientation Straight 02/28/2020 12 :51 AM CDT COVID-19 Exposure Response Date Recorded In the last month, have you been in contact with someone who was confirmed or suspected to have Coronavirus / COVID-19? Yes 07/15/2021 12:15 PM GLASS CLEANING MACHINE TENDER documented as of this encounter Plan of Treatment Upcoming Encounters Date Type Department Care Team (Late st Contact Info) Description 10/23/2024 9:30 AM CDT Office Visit [facility] [address], [address] [place] [address] [place] [address] [place] [address] Johnny Penn MD [address] [place] [address] documented as of this encounter Visit Diagnoses Not on filedocumented in this encounter Additional Health Concerns Infection Onset Date Last Indicated Resolved Time Rule Out COVID-19 07/13/2021 07/13/2021 07/14/2021 3:04 PM GLASS CLEANING MACHINE TENDER Rule Out COVID-19 07/18/2021 07/18/2021 07/20/2021 1:56 PM GLASS CLEANING MACHINE TENDER COVID-19 07/18/2021 07/18/2021 08/08/2021 11:3 9 PM GLASS CLEANING MACHINE TENDER Rule Out COVID-19 12/18/2021 12/18/2021 12/19/2021 11:34 AM CDT Rule Out COVID-19 02/24/2022 02/24/2022 02/25/2022 1:08 PM CDT Rule Out COVID-19 04/26/2022 04/26/2022 04/26/2022 6:47 AM CDT Rule Out COVID-19 05/17/2022 05/17/2022 05/17/2022 10:20 PM GLASS CLEANING MACHINE TENDER Rule Out COVID-19 06/09/2022 06/09/2022 06/09/2022 9:35 AM GLASS CLEANING MACHINE TENDER COVID-19 06/09/2022 06/09/2022 06/30/2022 11:4 1 PM GLASS CLEANING MACHINE TENDER Rule Out COVID-19 11/10/2022 11/10/2022 11/11/2022 12:17 PM CDT Rule Out COVID-19 03/07/2023 03/07/2023 03/07/2023 1:20 PM CDT Rule Out COVID-19 12/26/2023 12/26/2023 12/26/2023 9:50 AM CDT Rule Out COVID-19 04/09/2024 04/09/2024 04/10/2024 6:48 PM CDT Assessment Noted Time PHQ-9 Depression Total Score: 2 04/02/20 21 10:19 AM CDT documented as of this encounter Care Teams Director Digital Relationship Specialty Start Date End Date Marija Edgar APRN CNP PCP - General Nurse Practitioner 04/30/20 04/14/23 Esha Grimm PA-C [address] [place] [phone] PCP - General Family Medicine 05/04/23 Lita Oseguera Personal Advocate & Liaison (PAL) 02/28/20 03/27/23 Marija Edgar APRN MUCK HAULER Assigned PCP 06/08/20 04/29/23 Mynor Broussard MD [address] 744[address] Assigned Surgical Provider 06/01/20 11/28/21 Keisha Dotson MD [address] [place], [place] [address] Assigned Neuroscience Provider 06/04/20 04/01/23 Galo Burrell MD Assigned Heart and Vascular Provider 10/05/20 04/02/22 [facility] [address] [place] [address] Pharmacist Pharmacist 04/17/21 Rain Galaviz PA-C [address] [place] [address] [address] [place] [address] Physician Retail Merchandiser Dermatology 04/28/21 Summer Lara MD [address] [place] [address] 807294 Assigned OBGYN Provider 05/31/21 2 Tavia Wyatt MD [address] [place] [address] Dermatology 07/14/21 Johnny Murillo MD [address] [place] [address] Assigned Musculoskeletal Provider 08/30/21 03/17/22 Erica Farrell APRN MUCK HAULER [address] [facility] [address] [place] [address] Nurse Practitioner Cardiovascular Disease 09/09/[address] [facility] [address] [facility] [place], [place] [id number] Pharmacist Pharmacist 09/24/21 09/29/21 Tavia Wyatt MD [address] [place] [address] Assigned Surgical Provider 11/29/21 05/07/22 [facility] [address] [place] [address] Assigned MTM Pharmacist 01/02/22 Rich Barrett MD [address] [facility] [address] [place], [place] [address] Physician Ophthalmology 01/21/22 Neil Kent MD [address] [place], [place] [phone] Dermatology 02/24/22 Roney Story DPM [address] [facility] [address] [place] [address] Assigned Musculoskeletal Provider 03/20/22 08/13/22 Erica Farrell APRN MUCK HAULER [address] [place] [address] Assigned Heart and Vascular Provider 04/03/22 04/16/22 [facility] [address] [place] [address] Assigned MTM Pharmacist 04/07/22 Jelena David OD [address] [facility] [place] [address] Assigned Surgical Provider 05/08/22 10/08/22 Galo Burrell MD Assigned Heart and Vascular Provider 04/17/22 06/11/22 Livan Sharif MD [address] [place] [address] Cardiovascular Disease 05/14/22 Livan Sharif MD [address] [place] [address] Assigned Heart and Vascular Provider 06/12/22 07/23/22 Catherine Cm MD [address] [place] 709[address] Cardiovascular Disease 07/21/22 Valery Veronica PA-C [address] [place] [address] Physician Retail Merchandiser Dermatology 07/21/22 Catherine Cm MD [address] [place] [address] [place] [address] Assigned Heart and Vascular Provider 07/24/22 11/05/22 Johnny Murillo MD [address] [place] [address] [id number] Assigned Musculoskeletal Provider 08/14/22 10/08/22 Brea Quinn APRN MUCK HAULER [address] [place] [address] [phone] Nurse Practitioner Dermatology 09/21/22 Brea Quinn APRN MUCK HAULER [address] [place] [address] [place] [address] Assigned Surgical Provider 10/09/22 05/01/24 [place] [address] [place] [address] Assigned Musculoskeletal Provider 10/09/22 05/01/24 Livan Sharif MD [address] [place] [address] [place] [address] Assigned Heart and Vascular Provider 11/06/22 11/12/22 Catherine Cm MD [address] [place] [address] [place] [address] Assigned Heart and Vascular Provider 11/13/22 05/27/23 Sydnie Martinez RN Personal Advocate & Liaison (PAL) Family Medicine 03/28/23 07/31/23 Alfonso Renteria MD [address] [facility] [address] [place] [address] Assigned Neuroscience Provider 04/02/23 Cheng Todd PA-C [address] [place] [address] [id number] Assigned PCP 04/30/23 07/15/23 Radha Lomeli APRN MUCK HAULER [address] [facility] [address] [place], [place] 878[address] Assigned Heart and Vascular Provider 05/28/23 Jelena David OD [address] [facility] [address] [place] [id number] Ophthalmology 06/15/23 Pao Joseph, VJ Personal Advocate & Liaison (PAL) Nurse 08/01/23 11/07/23 Esha Grimm PA-C [address] [place] [address] Assigned PCP 07/16/23 Valery Veronica PA-C [address] [place] [address] [id number] Physician Retail Merchandiser Dermatology 09/19/23 Rey Tay MD [address] [place] [address] [phone] Gastroenterology 09/20/23 Rocky Zepeda DO [address] [place] [address] [phone] Physician Gastroenterology 09/20/23 Philip Dumont MD [address] [place] [address] Physician Ophthalmology 09/22/23 Meredith Carrera PA-C [address] [place] [address] 633405 Assigned Gastroenterology Provider 11/01/23 Neil Kent MD [address] [phone] MD Dermatology 11/02/23 [place] [address] [address] 748327 Neurological Surgery 12/26/23 Audrey [place] PA-C [address] [place], [place] 763[address] Physician Retail Merchandiser Dermatology 02/28/24 Valery Veronica PA-C [address] [place] [address] Physician Retail Merchandiser Dermatology 04/10/24 Herminia Hatch MD [address] [place] [address] Assigned Rheumatology Provider 07/02/24 documented as of this encounter
--- OUTSIDE RECORDS SUMMARY | 2024-08-28 19:08 | XMS_ITS | Clinical Summary ---
Author Organization [facility] Address Count includes the [facility] [place] [address] Care Team Providers Care Urgent Care Physician Assistant Name Role Phone Pcp, No Primary Care Provider Unavailabl e Clinic, No Pcp Or Unavailable Unavailable Allergies Active Allergy Reactions Criticality Noted Date Comments Vancomycin Other - Describe In Comment Field Medications biotin-silicon spbn-C-mvmalxna 3,000 mcg -100 mg-50 mg TbER Take [...] Department Care Team Description 08/28/2024 3:35 PM HARPOONER Office Visit [facility] [address] [facility] [address] [place] [address] Ernestina Toribio MD Lightheaded (Started today ) 08/28/[address] [facility] [address] [place] [address] Ernestina Toribio MD Lab 08/28/2024 [...] on file Legal Sex Female 2:29 PM HARPOONER Gender Identity Not on file Sexual Orientation Not on file Travel History Travel Start Travel End [place] 07/28/2024 08/28/2024 Obstetrics History Last Filed Vital Signs Vital Sign Reading Time Taken Comments Blood Pressure 111/58 08/28/2024 3:42 PM HARPOONER Pulse 72 08/28/2024 3:42 PM HARPOONER Temperature 36.4 C (97.5 F) 08/28/2024 3:42 PM HARPOONER Respiratory Rate 15 08/28/2024 3:42 PM HARPOONER Oxygen Saturation 99% 08/28/2024 3:42 PM HARPOONER Inhaled Oxygen Concentration - - Weight 90.7 kg (200 lb) 08/28/2024 3:42 PM HARPOONER Height 166.5 cm (5' 5.55) 08/31/2018 11:46 [...] Procedure Name Priority Date/Time Associated Diagnosis Comments CO BLOOD COUNT COMPLETE AUTO&AUTO DIFRNTL WBC Routine 08/28/2024 4:57 PM HARPOONER Dizzy ISTAT CHEM 8 Routine 08/28/2024 4:57 PM HARPOONER Dizzy UA W/ SEDIMENT EXAM REFLEXED PER CRITERIA STAT 08/28/2024 4:40 PM HARPOONER Urine frequency from Last 3 Months Results * IN CLINIC Chem 8 (08/28/2024 4:57 PM HARPOONER) Pathologist [facility] POCT, SODIUM, ISTAT 139 138 - 146 mmol/L [facility] (Urgent Care) POCT, POTASSIUM, ISTAT 3.7 3.5 - 4.9 mmol/L [facility] (Urgent Care) POCT, CHLORIDE, ISTAT 101 98 - 109 mmol/L [facility] (Urgent Care) POCT, CARBON DIOXIDE, ISTAT 26 24 - 29 mmol/L [facility] (Urgent Care) POCT, GLUCOSE ISTAT 77 70 - 105 mg/dL [facility] (Urgent Care) POCT, UREA NITROGEN (BUN) ISTAT 14 8 - 26 mg/dL [facility] (Urgent Care) POCT,CREATININE , ISTAT 0.9 0.6 - 1.3 mg/dL [facility] (Urgent Care) POCT, CALCIUM, IONIZED, ISTAT 4.9 4.5 - 5.3 mg/dL [facility] (Urgent Care) Blood BLOOD SPECIMEN / Unknown 08/28/2024 4:57 PM HARPOONER 08/28/2024 4:57 PM HARPOONER us Ernestina Toribio MD CHEMISTRY Final Result [facility] [address] [place] [address], [facility] Special[facility] (Urgent Care) [address] [place] [address] * (ABNORMAL) IN CLINIC CBC and Differential (08/28/2024 4:57 PM HARPOONER) [facility] WHITE BLOOD CELL COUNT 6.5 3.8 - 10.8 Thousand/u L [facility] (Urgent Care) RED BLOOD CELL COUNT 4.71 3.80 - 5.10 Million/uL [facility] (Urgent Care) HEMOGLOBIN 12.1 11.7 - 15.5 g/dL [facility] (Urgent Care) HEMATOCRIT 38.6 35.0 - 45.0 % [facility] (Urgent Care) MCV 82.0 80.0 - 100.0 fL [facility] (Urgent Care) MCH 25.7(L) 27.0 - 33.0 pg [facility] (Urgent Care) MCHC 31.3(L) 32.0 - 36.0 g/dL [facility] (Urgent Care) Comment: For adults, a slight decrease in the calculated MCHC value (in the range of 30 to 32 g/dL) is most likely not clinically significant; however, it should be interpreted with caution in correlation with other red cell parameters and the patient's clinical condition. RDW 12.5 11.0 - 15.0 % [facility] (Urgent Care) PLATELET COUNT 246 140 - 400 Thousand/u L [facility] (Urgent Care) MPV 10.2 7.5 - 12.5 fL [facility] (Urgent Care) ABSOLUTE NEUTROPHILS 3,816 1,500 - 7,800 cells/uL [facility] (Urgent Care) ABSOLUTE LYMPHOCYTES 2,009 850 - 3,900 cells/uL [facility] (Urgent Care) ABSOLUTE MONOCYTES 371 200 - 950 cells/uL [facility] (Urgent Care) ABSOLUTE EOSINOPHILS 286 15 - 500 cells/uL [facility] (Urgent Care) ABSOLUTE BASOPHILS 20 0 - 200 cells/uL [facility] (Urgent Care) NEUTROPHILS 58.7 % [facility] (Urgent Care) LYMPHOCYTES 30.9 % [facility] (Urgent Care) MONOCYTES 5.7 % [facility] (Urgent Care) EOSINOPHILS 4.4 % [facility] (Urgent Care) BASOPHILS 0.3 % [facility] (Urgent Care) Blood BLOOD SPECIMEN / Unknown 08/28/2024 4:57 PM HARPOONER 08/28/2024 4:57 PM HARPOONER us Ernestina Toribio MD HEMATOLOGY Final Result Performing Organization Address City/[facility]/ZIP Co de Phone Number [facility] [address] [place] [address], [facility] (Urgent Care) [address] [place] [address] * STAT Urinalysis w/ reflex to Microscopic (08/28/2024 4:40 PM HARPOONER) COLOR YELLOW YELLOW [facility] [...] URINE SPECIMEN / Unknown 08/28/2024 4:40 PM HARPOONER 08/28/2024 4:41 PM HARPOONER us Ernestina Toribio MD URINE Final Result Performing Organization Address City/[facility]/ZIP Co de Phone Number [facility] [address] [place] [address], [facility] (Urgent Care) [address] [place] [address] from Last 3 Months Insurance [facility] Care Teams Urgent Care Physician Assistant Relationship Specialty Start Date End Date Pcp, No . PCP - General 03/25/24 Clinic, No Pcp Or . 03/25/24
--- OUTSIDE RECORDS SUMMARY | 2024-08-28 19:08 | XMS_ITS | Encounter Summary ---
Author Organization [place] Address [address] [place] [address] Care Team Providers Care Auditor In Charge Name Role Phone Lita Oseguera Unavailable Unavailable Marija Edgar APRN CAFE SERVER Primary Care Provider + Marija Edgar APRN CAFE SERVER Unavailable Mynor Broussard MD Unavailable [phone] Keisha Dotson MD Unavailable Galo Burrell MD Unavailable Unavailable Diana Desir [facility] Unavailable Rain Galaviz PA-C Unavailable [phone] Summer Lara MD Unavailable [phone] Tavia Wyatt MD Unavailable Johnny Murillo MD Unavailable Erica Farrell APRN CAFE SERVER Unavailable Teresita Bean [facility] Unavailable Tavia Wyatt MD Unavailable Diana Desir [facility] Unavailable Rich Barrett MD Unavailable [phone] Neil Kent MD Unavailable Roney Story DPM Unavailable Erica Farrell CONTINUOUS PROCESS ROTARY DRUM TANNER CAFE SERVER Unavailable Thang Diana Stanislav [facility] Unavailable Jelena David OD Unavailable Galo Burrell MD Unavailable Unavailable Livan Sharif MD Unavailable + Livan Sharif MD Unavailable + Catherine Cm MD Unavailable + Valery Veronica PA-C Unavailable [phone] Catherine Cm MD Unavailable + Johnny Murillo MD Unavailable [phone] Brea Quinn CONTINUOUS PROCESS ROTARY DRUM TANNER CAFE SERVER Unavailable [phone] Brea Quinn CONTINUOUS PROCESS ROTARY DRUM TANNER CAFE SERVER Unavailable [phone] Jose Francisco Johnson MD Unavailable Livan Sharif MD Unavailable + IsCatherine hobbs MD Unavailable + Sydnie Martinez RN Unavailable Unavailable Alfonso Renteria MD Unavailable Esha Grimm-C Primary Care Provider Cheng Todd PA-C Unavailable Radha Lomeli CONTINUOUS PROCESS ROTARY DRUM TANNER CAFE SERVER Unavailable [phone] Jelena David OD Unavailable Pao Joseph RN Unavailable Unavailable Esha Grimm-C Unavailable [phone] JeremíasValery damon PA-C Unavailable [phone] Rey Tay MD Unavailable Rocky Zepeda DO Unavailable Philip Dumont MD Unavailable [phone] Meredith CarreraC Unavailable [phone] Neil Kent MD Unavailable Juan Pablo Emmanuel MD Unavailable Audrey WaiteC Unavailable [phone] Valery Veronica PA-C Unavailable [phone] Herminia Hatch MD Unavailable Encounter Details Date Type Department Care Team (Late st Contact Info) Description 06/03/2021 [facility] [address] [address] [facility] [address] [place] [address] Social History Tobacco Use Types Packs/Day Years [...] in a detention (including now)? No 08/11/2020 [place] Depression Scale [...] CDT Legal Sex Female 4:13 AM COMPUTER REPAIRER Gender Identity Female 03/02/2021 5:45 PM [...] Visit [facility] [place] [address] [place] [address], [address] [place] [address] [place] [address] [address] [place] [address] Johnny Penn MD [address] [place] [address] documented as of this encounter Visit Diagnoses Not on filedocumented in this encounter Additional Health Concerns Infection Onset Date Last Indicated Resolved Time Rule Out COVID-19 07/13/2021 07/13/2021 07/14/2021 3:04 PM COMPUTER REPAIRER Rule Out COVID-19 07/18/2021 07/18/2021 07/20/2021 1:56 PM COMPUTER REPAIRER COVID-19 07/18/2021 07/18/2021 08/08/2021 11:3 9 PM COMPUTER REPAIRER Rule Out COVID-19 12/18/2021 12/18/2021 12/19/2021 11:34 AM CDT Rule Out COVID-19 02/24/2022 02/24/2022 02/25/2022 1:08 PM CDT Rule Out COVID-19 04/26/2022 04/26/2022 04/26/2022 6:47 AM CDT Rule Out COVID-19 05/17/2022 05/17/2022 05/17/2022 10:20 PM COMPUTER REPAIRER Rule Out COVID-19 06/09/2022 06/09/2022 06/09/2022 9:35 AM COMPUTER REPAIRER COVID-19 06/09/2022 06/09/2022 06/30/2022 11:4 1 PM COMPUTER REPAIRER Rule Out COVID-19 11/10/2022 11/10/2022 11/11/2022 12:17 PM CDT Rule Out COVID-19 03/07/2023 03/07/2023 03/07/2023 1:20 PM CDT Rule Out COVID-19 12/26/2023 12/26/2023 12/26/2023 9:50 AM CDT Rule Out COVID-19 04/09/2024 04/09/2024 04/10/2024 6:48 PM CDT Assessment Noted Time PHQ-9 Depression Total Score: 2 04/02/20 10:19 AM CDT documented as of this encounter Care Teams Auditor In Charge Relationship Specialty Start Date End Date Marija Edgar APRN CAFE SERVER PCP - General Nurse Practitioner 04/30/20 04/14/23 Esha Grimm PA-C [address] [place] [phone] PCP - General Family Medicine 05/04/23 Lita Oseguera Personal Advocate & Liaison (PAL) 02/28/20 03/27/23 Marija Edgar APRN CAFE SERVER Assigned PCP 06/08/20 04/29/23 Mynor Broussard MD [address] [facility] 500 [place] [address] Assigned Surgical Provider 06/01/20 11/28/21 Keisha Dotson MD [address] [place], [place] 140695 Assigned Neuroscience Provider 06/04/20 04/01/23 Galo Burrell MD Assigned Heart and Vascular Provider 10/05/20 04/02/22 Diana Desir, [facility] [address] [place] [address] Pharmacist Pharmacist 04/17/21 Rain Galaviz PA-C [address] [place] [address] [address] [facility] [place] [address] Physician Rate Engineer Dermatology 04/28/21 Summer Lara MD [address] [place] [address] 607094 Assigned OBGYN Provider 05/31/21 2 Tavia Wyatt MD [address] [place], [place] [address] Dermatology 07/14/21 Johnny Murillo MD [address] [place] [address] Assigned Musculoskeletal Provider 08/30/21 03/17/22 Erica Farrell APRN CAFE SERVER [address] [facility] [address] [place], [place] [address] Nurse Practitioner Cardiovascular Disease 09/09/21 Teresita Bean, [facility] [address] [facility] [address] [place], [place] [id number] Pharmacist Pharmacist 09/24/21 09/29/21 Tavia Wyatt MD [address] [place], [place] 248990 Assigned Surgical Provider 11/29/21 05/07/22 Diana Desir, [facility] [address] [place] [address] Assigned MTM Pharmacist 01/02/22 Rich Barrett MD [address] [facility] [address] [place], [place] [address] Physician Ophthalmology 01/21/22 Neil Kent MD [address] [place], [place] [address] Dermatology 02/24/22 Roney Story DPM [address] [facility] [address] [place] [address] Assigned Musculoskeletal Provider 03/20/22 08/13/22 Erica Farrell APRN CAFE SERVER 1700 [place] [address] Assigned Heart and Vascular Provider 04/03/22 04/16/22 Diana Desir, [facility] [address] [place], [place] 641166 Assigned MTM Pharmacist 04/07/22 Jelena David OD [address] [facility] [place] [address] Assigned Surgical Provider 05/08/22 10/08/22 Galo Burrell MD Assigned Heart and Vascular Provider 04/17/22 06/11/22 Livan Sharif MD [address] [place] [address] Cardiovascular Disease 05/14/22 Livan Sharif MD [address] [place] [address] Assigned Heart and Vascular Provider 06/12/22 07/23/22 Catherine Cm MD [address] [place] [address] Cardiovascular Disease 07/21/22 Valery Veronica, PAUcheC [address] [place] [address] Physician Rate Engineer Dermatology 07/21/22 Catherine Cm MD [address] [facility] [address] [place] [address] Assigned Heart and Vascular Provider 07/24/22 11/05/22 Johnny Murillo MD [address] [address] Assigned Musculoskeletal Provider 08/14/22 10/08/22 Brea Quinn APRN CAFE SERVER [address] [place] [address] 733725 Nurse Practitioner Dermatology 09/21/22 Brea Quinn APRN CAFE SERVER [address] [place] [address] [place] 602842 Assigned Surgical Provider 10/09/22 05/01/24 [place] [address] [address] Assigned Musculoskeletal Provider 10/09/22 05/01/24 Livan Sharif MD [address] [place] [address] Assigned Heart and Vascular Provider 11/06/22 11/12/22 Catherine Cm MD [address] [place] 419875 Assigned Heart and Vascular Provider 11/13/22 05/27/23 Sydnie Martinez, VJ Personal Advocate & Liaison (PAL) Family Medicine 03/28/23 07/31/23 Alfonso Renteria MD 5775 [facility] [address] [place] [address] Assigned Neuroscience Provider 04/02/23 Cheng Todd PA-C [address] [place] [address] Assigned PCP 04/30/23 07/15/23 Radha Lomeli APRN CAFE SERVER [address] [facility] [address] [place] [address] Assigned Heart and Vascular Provider 05/28/23 Jelena David OD [address] [facility] [place] [address] Ophthalmology 06/15/23 Pao Joseph, VJ Personal Advocate & Liaison (PAL) Nurse 08/01/23 11/07/23 Esha Grimm PA-C [address] [place] [address] Assigned PCP 07/16/23 Valery Veronica PA-C [address] [place], [place] 0[address] Physician Rate Engineer Dermatology 09/19/23 Rey Tay MD [address] [place], [place] 7[address] Gastroenterology 09/20/23 Rocky Zepeda DO 500 [place] [address] Physician Gastroenterology 09/20/23 Philip Dumont MD 516 [place] [address] Physician Ophthalmology 09/22/23 Meredith Carrera PA-C [address] [place] [address] Assigned Gastroenterology Provider 11/01/23 Neil Kent MD [address] [address] MD Dermatology 11/02/23 [place] [address] [address] Neurological Surgery 12/26/23 Audrey Waite PA-C [address] [place] [address] Physician Rate Engineer Dermatology 02/28/24 Valery Veronica PA-C 285510 [address] [place] [address] Physician Rate Engineer Dermatology 04/10/24 Herminia Hatch MD [facility]5 [place], [place] [address] Assigned Rheumatology Provider 07/02/24 documented as of this encounter
--- OUTSIDE RECORDS SUMMARY | 2024-08-28 19:08 | XMS_ITS | Encounter Summary ---
Author Organization [place] Address [address] [place] [address] Care Team Providers Care Wood Window And Door Craftsman Name Role Phone Lita Oseguera Unavailable Unavailable Marija Edgar APRN OPTICAL ENGINEER Primary Care Provider + Marija Edgar APRN OPTICAL ENGINEER Unavailable [phone] Keisha Dotson MD Unavailable Diana Desir [facility] Unavailable [phone] Rain Galaviz PA-C Unavailable Tavia Wyatt MD Unavailable [phone] Erica Farrell APRN OPTICAL ENGINEER Unavailable Rich Barrett MD Unavailable [phone] Neil Kent MD Unavailable Diana Desir [facility] Unavailable Livan Sharif MD Unavailable Catherine Cm MD Unavailable + Valery Veronica PA-C Unavailable [phone] Catherine Cm MD Unavailable + Brea Quinn REGULATORY SERVICES CONSULTANT OPTICAL ENGINEER Unavailable Brea Quinn REGULATORY SERVICES CONSULTANT OPTICAL ENGINEER Unavailable Jose Francisco Johnson MD Unavailable Livan Sharif MD Unavailable Catherine Cm MD Unavailable + Sydnie Martinez RN Unavailable Unavailable Alfonso Renteria MD Unavailable [phone] Esha Grimm PA-C Primary Care Provider Cheng Todd PA-C Unavailable Radha Lomeli REGULATORY SERVICES CONSULTANT OPTICAL ENGINEER Unavailable Jelena David OD Unavailable Pao Joseph RN Unavailable Unavailable Esha Grimm PA-C Unavailable [phone] Valery Veronica PA-C Unavailable [phone] Rey Tay MD Unavailable Rocky Zepeda DO Unavailable Philip Dumont MD Unavailable Meredith Carrera PA-C Unavailable Neil Kent MD Unavailable Juna Pablo Emmanuel MD Unavailable Audrey Waite PA-C Unavailable [phone] JeremíasValery damon PA-C Unavailable [phone] Herminia Hatch MD Unavailable Reason for Visit * Reason Onset Date Comments Alejandrohart Communication 10/27/2022 Encounter Details Date Type Department Care Team (Late st Contact Info) Description 10/27/2022 [facility] [address] [place] [address] Brea Quinn, REGULATORY SERVICES CONSULTANT OPTICAL ENGINEER [address] [facility] [place] [address] Alejandrohart Communication (/) Social History Tobacco Use [...] How often do you attend sabianism or christian serv ices? Never 09/22/2021 Do [...] in a snf (including now)? No 09/22/2021 [place] Depression Scale Answer Date Recorded [place] Depression Score 5 01/14/2021 Last EPDS Self Harm Result Not on file 01/14 Education Answer Date Recorded What is the highest level of school you have completed or the highest degree you have received? 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 HARD TILE SETTER APPRENTICE Gender Identity Female 03/02/2021 5:45 PM [...] Letha Driver RN [facility] Gloria Alvarenga [phone] documented in this encounter Plan of Treatment Upcoming Encounters Date Type Department Care Team (Late st Contact Info) Description 10/23/2024 9:30 AM CDT Office Visit [facility] Neurology [address], [address] [place] [address] [place] [address] [place] 68[address] Johnny Penn MD [address] [facility] [place] [address] documented as of this encounter Visit Diagnoses [...] as of this encounter Care Teams Wood Window And Door Craftsman Relationship Specialty Start Date End Date Marija Edgar APRN OPTICAL ENGINEER PCP - General Nurse Practitioner 04/30/20 04/14/23 Esha Grimm PA-C [address] [place] [address] PCP - General Family Medicine 05/04/23 Lita Oseguera Personal Advocate & Liaison (PAL) 02/28/20 03/27/23 Marija Edgar APRN OPTICAL ENGINEER Assigned PCP 06/08/20 04/29/23 Keisha Dotson MD [address] [place], [place] [address] Assigned Neuroscience Provider 06/04/20 04/01/23 [facility] 3033 [place] [address] Pharmacist Pharmacist 04/17/21 Rain Galaviz PA-C [address] [place] [address] [address] [place] [address] Physician Nutrition Therapist Dermatology 04/28/21 Tavia Wyatt MD [address] [place] [address] [address] [place] [address] Dermatology 07/14/21 Erica Farrell APRN [facility] [address] [place], [place] [address] Nurse Practitioner Cardiovascular Disease 09/09/21 Rich Barrett MD [address] [place] [address] 327345 Physician Ophthalmology 01/21/22 Neil Kent MD [address] [place] [address] 694995 Dermatology 02/24/22 [facility] [address] [place] [address] Assigned [place] Pharmacist 04/07/22 Livan Sharif MD [address] [facility]00 [place] [address] Cardiovascular Disease 05/14/22 Catherine Cm MD [address] [address] Cardiovascular Disease 07/21/22 Valery Veronica, PA-C [address] [place] [address] 949675 Physician Nutrition Therapist Dermatology 07/21/22 Catherine Cm MD [address] [facility]00 [place] [address] Assigned Heart and Vascular Provider 07/24/22 11/05/22 Brea Quinn APRN OPTICAL ENGINEER 500 [place] [address] Nurse Practitioner Dermatology 09/21/22 Brea Quinn APRN OPTICAL ENGINEER 6401 [place] [address] Assigned Surgical Provider 10/09/22 05/01/24 [place] [address] [facility] 300 [place] [address] Assigned Musculoskeletal Provider 10/09/22 05/01/24 Livan Sharif MD [address], [facility] [address] [place] [address] Assigned Heart and Vascular Provider 11/06/22 11/12/22 Catherine Cm MD 6405 [facility] [address] [place] [address] Assigned Heart and Vascular Provider 11/13/22 05/27/23 Sydnie Martinez RN Personal Advocate & Liaison (PAL) Family Medicine 03/28/23 07/31/23 Alfonso Renteria MD 5775 [facility] 200 [place], [place] 284516 Assigned Neuroscience Provider 04/02/23 Cheng Todd PA-C [address] [place] [address] Assigned PCP 04/30/23 07/15/23 Radha Lomeli APRN OPTICAL ENGINEER [address] [facility] [address] [place] [address] Assigned Heart and Vascular Provider 05/28/23 Jelena David OD [address] [place] [address] MD Ophthalmology 06/15/23 Pao Joseph, VJ Personal Advocate & Liaison (PAL) Nurse 08/01/23 11/07/23 Esha Grimm PA-C [address] [place] [phone] Assigned PCP 07/16/23 Valery Veronica PA-C [address] [place] [address] Physician Nutrition Therapist Dermatology 09/19/23 Rey Tay MD [address] [place] [address] 147315 Gastroenterology 09/20/23 Rocky Zepeda DO [address] [place] [address] 145075 Physician Gastroenterology 09/20/23 Philip Dumont MD [address] [place] [address] 837995 Physician Ophthalmology 09/22/23 Meredith Carrera PA-C [address] [place] [address] 697775 Assigned Gastroenterology Provider 11/01/23 Neil Kent MD [address] [address] Dermatology 11/02/23 [place] [address] 508[address] Neurological Surgery 12/26/23 Audrey Waite PA-C 500 [place] [address] Physician Nutrition Therapist Dermatology 02/28/24 Valery Veronica PA-C 641608 [place] [address] Physician Nutrition Therapist Dermatology 04/10/24 Herminia Hatch MD [facility]5 [place], [place] [address] Assigned Rheumatology Provider 07/02/24 documented as of this encounter
--- OUTSIDE RECORDS SUMMARY | 2024-08-28 19:08 | XMS_ITS | Encounter Summary ---
Author Organization [facility] Address [address] [place] [address] Care Team Providers Care Shoe Cutter Name Role Phone Lita Oseguera Unavailable Unavailable Marija Edgar APRN BULK TANK CAR UNLOADER Primary Care Provider + Marija Edgar APRN BULK TANK CAR UNLOADER Unavailable [phone] Mynor Broussard MD Unavailable [phone] Keisha Dotson MD Unavailable Galo Burrell MD Unavailable Unavailable Diana Desir [facility] Unavailable Rain Galaviz PA-C Unavailable Summer Lara MD Unavailable [phone] Tavia Wyatt MD Unavailable Johnny Murillo MD Unavailable [phone] Erica Farrell APRN BULK TANK CAR UNLOADER Unavailable Teresita Bean [facility] Unavailable [phone] Tavia Wyatt MD Unavailable Diana Desir [facility] Unavailable Rich Barrett MD Unavailable [phone] Neil Kent MD Unavailable Roney Story DPM Unavailable Erica Farrell PMO CONSULTANT BULK TANK CAR UNLOADER Unavailable Thang Diana Stanislav [facility] Unavailable Jelena David OD Unavailable Galo Burrell MD Unavailable Unavailable Livan Sharif MD Unavailable + Livan Sharif MD Unavailable + Catherine Cm MD Unavailable + Valery Veronica PA-C Unavailable [phone] Catherine Cm MD Unavailable + Johnny Murillo MD Unavailable [phone] Brea Quinn PMO CONSULTANT BULK TANK CAR UNLOADER Unavailable [phone] Brea Quinn PMO CONSULTANT BULK TANK CAR UNLOADER Unavailable [phone] Jose Francisco Johnson MD Unavailable Livan Sharif MD Unavailable + IsCatherine hobbs MD Unavailable + Sydnie Martinez RN Unavailable Unavailable Alfonso Renteria MD Unavailable Esha Grimm-C Primary Care Provider Cheng Todd PA-C Unavailable Radha Lomeli PMO CONSULTANT BULK TANK CAR UNLOADER Unavailable [phone] Jelena David OD Unavailable Pao Joseph RN Unavailable Unavailable Esha Grimm-C Unavailable [phone] JeremíasValery damon PA-C Unavailable [phone] Rey Tay MD Unavailable Rocky Zepeda DO Unavailable Philip Dumont MD Unavailable [phone] Meredith CarreraC Unavailable [phone] Neil Kent MD Unavailable Juan Pablo Emmanuel MD Unavailable Audrey WaiteC Unavailable [phone] Valery Veronica PA-C Unavailable [phone] Herminia Hatch MD Unavailable Encounter Details Date Type Department Care Team (Late st Contact Info) Description 06/01/2021 [facility] [address] [address] [facility] [address] [place] [address] Social History Tobacco Use Types Packs/Day Years [...] you attend chur ch or druze services? More than 4 times per year [...] in a mcfp (including now)? No 08/11/2020 [place] Depression Scale Answer Date Recorded [place] Depression Score 5 01/14/2021 Last EPDS Self Harm Result Not on file 01/14 Education Answer Date Recorded What is the highest level of school you have completed or the highest degree you have received? 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 TELEPHONE SUPERVISOR Gender Identity Female 03/02/2021 5:45 PM CDT Sexual Orientation Straight 02/28/2020 12 :51 AM CDT COVID-19 Exposure Response Date Recorded In the last month, have you been in contact with someone who was confirmed or suspected to have Coronavirus / COVID-19? No / Unsure 05/11/2021 4:19 PM CDT documented as of this encounter Miscellaneous Notes * Telephone Encounter - Diana Desir [facility] - 06/01/2021 3:43 PM CST Called patient and reassured 50 mg dose increase in sertraline is typical and okay to do. She will closely monitor changes in mental health over next couple weeks. Answered all questions. Diana Desir, PharmD Medication Therapy Management Provider, [facility] Pager: [phone] PHONE SUPERVISOR documented in this encounter Plan of Treatment Upcoming Encounters Date Type Department Care Team (Late st Contact Info) Description 10/23/2024 9:30 AM CDT Office Visit [facility] Neurology [facility] [address] [facility], [address] [place] [address] [place] [address] [place], [place] [phone] Johnny Penn MD [address], [place] [id number] documented as of this encounter Visit Diagnoses Not on filedocumented in this encounter Additional Health Concerns Infection Onset Date Last Indicated Resolved Time Rule Out COVID-19 07/13/2021 07/13/2021 07/14/2021 3:04 PM TELEPHONE SUPERVISOR Rule Out COVID-19 07/18/2021 07/18/2021 07/20/2021 1:56 PM TELEPHONE SUPERVISOR COVID-19 07/18/2021 07/18/2021 08/08/2021 11:3 9 PM TELEPHONE SUPERVISOR Rule Out COVID-19 12/18/2021 12/18/2021 12/19/2021 11:34 AM CDT Rule Out COVID-19 02/24/2022 02/24/2022 02/25/2022 1:08 PM CDT Rule Out COVID-19 04/26/2022 04/26/2022 04/26/2022 6:47 AM CDT Rule Out COVID-19 05/17/2022 05/17/2022 05/17/2022 10:20 PM TELEPHONE SUPERVISOR Rule Out COVID-19 06/09/2022 06/09/2022 06/09/2022 9:35 AM TELEPHONE SUPERVISOR COVID-19 06/09/2022 06/09/2022 06/30/2022 11:4 1 PM TELEPHONE SUPERVISOR Rule Out COVID-19 11/10/2022 11/10/2022 11/11/2022 12:17 PM CDT Rule Out COVID-19 03/07/2023 03/07/2023 03/07/2023 1:20 PM CDT Rule Out COVID-19 12/26/2023 12/26/2023 12/26/2023 9:50 AM CDT Rule Out COVID-19 04/09/2024 04/09/2024 04/10/2024 6:48 PM CDT Assessment Noted Time PHQ-9 Depression Total Score: 2 04/02/20 10:19 AM CDT documented as of this encounter Care Teams Shoe Cutter Relationship Specialty Start Date End Date Marija Edgar APRN BULK TANK CAR UNLOADER PCP - General Nurse Practitioner 04/30/20 04/14/23 Esha Grimm PA-C [address] [place] [phone] PCP - General Family Medicine 05/04/23 Lita Oseguera Personal Advocate & Liaison (PAL) 02/28/20 03/27/23 Marija Edgar APRN BULK TANK CAR UNLOADER Assigned PCP 06/08/20 04/29/23 Mynor Broussard MD [address] [address] Assigned Surgical Provider 06/01/20 11/28/21 Keisha Dotson MD 909 [place] [address] Assigned Neuroscience Provider 06/04/20 04/01/23 Galo Burrell MD Assigned Heart and Vascular Provider 10/05/20 04/02/22 Diana Desir, [facility] [address] [place], [place] 989166 Pharmacist Pharmacist 04/17/21 Rain Galaviz PA-C [address] [place] [address] [place] [address] Physician Sergeant Of Corrections Dermatology 04/28/21 Summer Lara MD [address] [place] [address] 755894 Assigned OBGYN Provider 05/31/21 Tavia Wyatt MD [address] [place] [address] 913374 Dermatology 07/14/21 Johnny Murillo MD [address] [place], [place] 601614 Assigned Musculoskeletal Provider 08/30/21 03/17/22 Erica Farrell APRN BULK TANK CAR UNLOADER [address] [facility] [address] [place] [address] Nurse Practitioner Cardiovascular Disease 09/09/21 Teresita Bean [facility] [address] [place] [address] Pharmacist Pharmacist 09/24/21 09/29/21 Tavia Wyatt MD [address] [place], [place] [phone] Assigned Surgical Provider 11/29/21 05/07/22 Diana Desir, [facility] [address] [place] [address] Assigned MTM Pharmacist 01/02/22 Rich Barrett MD [address] 527[address] Physician Ophthalmology 01/21/22 Neil Kent MD 500 [place], [place] 237585 Dermatology 02/24/22 Roney Story DPM [address] [facility] [address] [place], [place] 092417 Assigned Musculoskeletal Provider 03/20/22 08/13/22 Erica Farrell APRN BULK TANK CAR UNLOADER 1700 [place] [address] Assigned Heart and Vascular Provider 04/03/22 04/16/22 Diana Desir, [facility] [address] [place] [address] Assigned MTM Pharmacist 04/07/22 [place] David [place] [address] [facility] [place] [address] Assigned Surgical Provider 05/08/22 10/08/22 Galo Burrell MD Assigned Heart and Vascular Provider 04/17/22 06/11/22 Livan Sharif MD [address] [facility] [address] [place] [address] Cardiovascular Disease 05/14/22 Livan Sharif MD [address], [facility] [address] [place] [address] Assigned Heart and Vascular Provider 06/12/22 07/23/22 Catherine Cm MD [address] [facility] [place] [address] Cardiovascular Disease 07/21/22 Valery Veronica, PA-C [address] [place] [address] 850665 Physician Sergeant Of Corrections Dermatology 07/21/22 Catherine Cm MD [address] [facility] [place] [address] Assigned Heart and Vascular Provider 07/24/22 11/05/22 Johnny Murillo MD [address] 029774 Assigned Musculoskeletal Provider 08/14/22 10/08/22 Brea Quinn APRN BULK TANK CAR UNLOADER [address] [place] [address] 268675 Nurse Practitioner Dermatology 09/21/22 Brea Quinn APRN BULK TANK CAR UNLOADER [address] [place] [address] [place] [id number] Assigned Surgical Provider 10/09/22 05/01/24 [place] [address] [place] [address] 728097 Assigned Musculoskeletal Provider 10/09/22 05/01/24 Livan Sharif MD [address], [facility] [address] [place] 420035 Assigned Heart and Vascular Provider 11/06/22 11/12/22 Catherine Cm MD [address] [place] [address] Assigned Heart and Vascular Provider 11/13/22 05/27/23 Sydnie Martinez, RN Personal Advocate & Liaison (PAL) Family Medicine 03/28/23 07/31/23 Alfonso Renteria MD [address] [facility] 200 [place] [address] Assigned Neuroscience Provider 04/02/23 Cheng Todd PA-C [address] [place] [address] [id number] Assigned PCP 04/30/23 07/15/23 Radha Lomeli APRN BULK TANK CAR UNLOADER [address] [place] [address] Assigned Heart and Vascular Provider 05/28/23 Jelena David OD [address] [facility] [place] [address] Ophthalmology 06/15/23 Pao Joseph, VJ Personal Advocate & Liaison (PAL) Nurse 08/01/23 11/07/23 Esha Grimm PAUcheC [address] [place] [phone] Assigned PCP 07/16/23 Valery Veronica PA-C 909 [place], [place] 546945 Physician Sergeant Of Corrections Dermatology 09/19/23 Rey Tay MD 9 [place] [address] MD Gastroenterology 09/20/23 Rocky Zepeda DO 500 [place], [place] 265595 Physician Gastroenterology 09/20/23 Philip Dumont MD [address] [place] [address] 641535 Physician Ophthalmology 09/22/23 Meredith Carrera PA-C 9 [place], [place] 935455 Assigned Gastroenterology Provider 11/01/23 Neil Kent MD [address] [address] Dermatology 11/02/23 [place] [address] [facility] [place] [address] Neurological Surgery 12/26/23 Audrey Waite PA-C 500 [place] [address] Physician Sergeant Of Corrections Dermatology 02/28/24 Valery Veronica PA-C [address] [place] [address] Physician Sergeant Of Corrections Dermatology 04/10/24 Herminia Hatch MD [address] [place] [address] Assigned Rheumatology Provider 07/02/24 documented as of this encounter
--- OUTSIDE RECORDS SUMMARY | 2024-08-28 19:08 | XMS_ITS | Encounter Summary ---
Author Organization [facility] Address [address] [place] [address] Care Team Providers Care Wall Worker Name Role Phone Lita Oseguera Unavailable Unavailable Marija Edgar GEAR ROOM KEEPER PERSONAL DEVELOPMENT COACH Primary Care Provider + Chanelle Mccann GEAR ROOM KEEPER CNM Unavailab le Marija Edgar APRN PERSONAL DEVELOPMENT COACH Unavailable Mynor Broussard MD Unavailable [phone] Keisha Dotson MD Unavailable Galo Burrell MD Unavailable Unavailable Diana Desir [facility] Unavailable Rain Galaviz PA-C Unavailable Summer Lara MD Unavailable [phone] Summer Lara MD Unavailable [phone] Summer Lara MD Unavailable [phone] Tavia Wyatt MD Unavailable Johnny Murillo MD Unavailable Erica Farrell GEAR ROOM KEEPER PERSONAL DEVELOPMENT COACH Unavailable Teresita Bean [facility] Unavailable Tavia Wyatt MD Unavailable DesirDiana [facility] Unavailable [phone] Rich Barrett MD Unavailable [phone] Neil Kent MD Unavailable Roney StoryM Unavailable [phone] Erica Farrell APRN PERSONAL DEVELOPMENT COACH Unavailable + Diana Desir [facility] Unavailable [phone] Jelena David OD Unavailable Galo Burrell MD Unavailable Unavailable Livan Sharif MD Unavailable + Livan Sharif MD Unavailable + Catherine Cm MD Unavailable + Valery VeronicaC Unavailable [phone] Catherine Cm MD Unavailable + Johnny Murillo MD Unavailable [phone] Brea Quinn GEAR ROOM KEEPER PERSONAL DEVELOPMENT COACH Unavailable [phone] Brea Quinn GEAR ROOM KEEPER PERSONAL DEVELOPMENT COACH Unavailable [phone] Jose Francisco Johnson MD Unavailable Livan Sharif MD Unavailable + Catherine Cm MD Unavailable + Sydnie Martinez RN Unavailable Unavailable Alfonso Renteria MD Unavailable [phone] Esha GrimmC Primary Care Provider Cheng Todd PA-C Unavailable [phone] Radha Lomeli APRN PERSONAL DEVELOPMENT COACH Unavailable [phone] Jelena David OD Unavailable [phone] Jake, Pao RN Unavailable Unavailable Alfa, Esha M PA-C Unavailable [phone] Valery VeronicaC Unavailable [phone] Rey Tay MD Unavailable Duane Rockyanne [facility] Unavailable Philip Dumont MD Unavailable [phone] Meredith Carrera PA-C Unavailable [phone] Neil Kent MD Unavailable Juan Pablo Emmanuel MD Unavailable Audrey Waite PA-C Unavailable [phone] Valery Veronica PA-C Unavailable Herminia Hatch MD Unavailable Encounter Details Date Type Department Care Team (Late st Contact Info) Description 04/28/2021 [facility] [address] [address] Marija Edgar APRN PERSONAL DEVELOPMENT COACH [facility] [place] [address] Social History Tobacco Use Types [...] you attend [employer] or jain services? More than 4 times [...] PHQ-2 Score 0 04/02/2021 [facility] - Occupational Stress Questionnaire Answer Date [...] in a fci (including now)? No 08/11/2020 [place] Depression Scale Answer Date Recorded [place] Depression Score 5 01/14/2021 Last EPDS Self Harm Result Not on file 01/14 Education Answer Date Recorded What is the highest level of school you have completed or the highest degree you have received? 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 DEPARTMENT OF MATHEMATICS CHAIR Gender Identity Female 03/02/2021 5:45 PM [...] Visit [facility] Neurology [facility] - [address], [address] [place] [address] [place] [address] [address] Johnny Penn MD [address] [place] 067805 documented as of this encounter Visit Diagnoses Not on filedocumented in this encounter Additional Health Concerns Infection Onset Date Last Indicated Resolved Time Rule Out COVID-19 05/11/2021 05/11/2021 05/13/2021 10:18 AM CDT Rule Out COVID-19 07/13/2021 07/13/2021 07/14/2021 3:04 PM DEPARTMENT OF MATHEMATICS CHAIR Rule Out COVID-19 07/18/2021 07/18/2021 07/20/2021 1:56 PM DEPARTMENT OF MATHEMATICS CHAIR COVID-19 07/18/2021 07/18/2021 08/08/2021 11:3 9 PM DEPARTMENT OF MATHEMATICS CHAIR Rule Out COVID-19 12/18/2021 12/18/2021 12/19/2021 11:34 AM CDT Rule Out COVID-19 02/24/2022 02/24/2022 02/25/2022 1:08 PM CDT Rule Out COVID-19 04/26/2022 04/26/2022 04/26/2022 6:47 AM CDT Rule Out COVID-19 05/17/2022 05/17/2022 05/17/2022 10:20 PM DEPARTMENT OF MATHEMATICS CHAIR Rule Out COVID-19 06/09/2022 06/09/2022 06/09/2022 9:35 AM DEPARTMENT OF MATHEMATICS CHAIR COVID-19 06/09/2022 06/09/2022 06/30/2022 11:4 1 PM DEPARTMENT OF MATHEMATICS CHAIR Rule Out COVID-19 11/10/2022 11/10/2022 11/11/2022 12:17 PM CDT Rule Out COVID-19 03/07/2023 03/07/2023 03/07/2023 1:20 PM CDT Rule Out COVID-19 12/26/2023 12/26/2023 12/26/2023 9:50 AM CDT Rule Out COVID-19 04/09/2024 04/09/2024 04/10/2024 6:48 PM CDT Assessment Noted Time PHQ-9 Depression Total Score: 2 04/02/20 10:19 AM CDT documented as of this encounter Care Teams Wall Worker Relationship Specialty Start Date End Date Marija Edgar APRN PERSONAL DEVELOPMENT COACH PCP - General Nurse Practitioner 04/30/20 04/14/23 Esha Grimm PA-C [address] [place] [phone] PCP - General Family Medicine 05/04/23 Lita Oseguera Personal Advocate & Liaison (PAL) 02/28/20 03/27/23 Chanelle Mccann APRN [place]NAdam [address] [place] [address] 200 [place] [address] Assigned OBGYN Provider 05/02/2005/09 Marija Edgar APRN PERSONAL DEVELOPMENT COACH Assigned PCP 06/08/20 04/29/23 Mynor Broussard MD 6363 [facility] 500 [place], [place] 251175 Assigned Surgical Provider 06/01/20 11/28/21 Keisha Dotson MD 909 [place], [place] 370425 Assigned Neuroscience Provider 06/04/20 04/01/23 Galo Burrell MD Assigned Heart and Vascular Provider 10/05/20 04/02/22 [facility] [address] [place] [address] Pharmacist Pharmacist 04/17/21 Rain Galaviz PA-C [address] [place] [address] [place] [address] Physician Block Operator Dermatology 04/28/21 Summer Lara MD [address] [place] [address] Assigned OBGYN Provider 05/10/2105/23 Summer Lara MD [address] [place] [address] Assigned OBGYN Provider 05/31/21 Summer Lara MD [address] [place] [address] [place], [place] 863544 Assigned OBGYN Provider 05/24/2105/30 Tavia Wyatt MD [address] [place], [place] [address] Dermatology 07/14/21 Johnny Murillo MD [address] [place] [address] Assigned Musculoskeletal Provider 08/30/21 03/17/22 Erica Farrell APRN PERSONAL DEVELOPMENT COACH 6[address] [facility] [address] [place] [address] Nurse Practitioner Cardiovascular Disease 09/09/21 Teresita Bean [facility] [address] [facility] [place] [address] Pharmacist Pharmacist 09/24/21 09/29/21 Tavia Wyatt MD [address] [place] [address] Assigned Surgical Provider 11/29/21 05/07/22 [facility] [address] [place] [address] Assigned MTM Pharmacist 01/02/22 Rich Barrett MD [address] 079675 Physician Ophthalmology 01/21/22 Neil Kent MD 500 [place], [place] [address]805 Dermatology 02/24/22 Roney Story DPM [address] [facility] [address] [place] [address] Assigned Musculoskeletal Provider 03/20/22 08/13/22 Erica Farrell APRN PERSONAL DEVELOPMENT COACH 1700 [place] [address] Assigned Heart and Vascular Provider 04/03/22 04/16/22 [facility] [address] [place] [address] Assigned MTM Pharmacist 04/07/22 Jelena David OD [address] [place] [address] Assigned Surgical Provider 05/08/22 10/08/22 Galo Burrell MD Assigned Heart and Vascular Provider 04/17/22 06/11/22 Livan Sharif MD [address], [address] [place] [address] Cardiovascular Disease 05/14/22 Livan Sharif MD [address], [address] [place] [address] Assigned Heart and Vascular Provider 06/12/22 07/23/22 Catherine Cm MD [address] [facility] [address] [place] [address] Cardiovascular Disease 07/21/22 Valery Veronica, PA-C 909 [place] [address] Physician Block Operator Dermatology 07/21/22 Catherine Cm MD [address] [address] [place] [address] Assigned Heart and Vascular Provider 07/24/22 11/05/22 Johnny Murillo MD [facility] [address] [address] Assigned Musculoskeletal Provider 08/14/22 10/08/22 Brea Quinn APRN PERSONAL DEVELOPMENT COACH [address] [place] [address] Nurse Practitioner Dermatology 09/21/22 Brea Quinn APRN PERSONAL DEVELOPMENT COACH [address] [place] [address] Assigned Surgical Provider 10/09/22 05/01/24 [place] [address] [place] [address] Assigned Musculoskeletal Provider 10/09/22 05/01/24 Livan Sharif MD [address] [facility] [address] [place] [address] Assigned Heart and Vascular Provider 11/06/22 11/12/22 Catherine Cm MD [address] [facility] [address] [place] [address] Assigned Heart and Vascular Provider 11/13/22 05/27/23 Sydnie Martinez RN Personal Advocate & Liaison (PAL) Family Medicine 03/28/23 07/31/23 Alfonso Renteria MD 5775 [facility] 200 [place] [address] Assigned Neuroscience Provider 04/02/23 Cheng Todd PA-C [address] [place] [address] Assigned PCP 04/30/23 07/15/23 Radha Lomeli APRN PERSONAL DEVELOPMENT COACH [address] [place] [address] Assigned Heart and Vascular Provider 05/28/23 Jelena David OD [address] [place] [address] MD Ophthalmology 06/15/23 Pao Joseph, VJ Personal Advocate & Liaison (PAL) Nurse 08/01/23 11/07/23 Esha Grimm PA-C [address] [place] [phone] Assigned PCP 07/16/23 Valery Veronica PA-C [address] [place] [address] 909825 Physician Block Operator Dermatology 09/19/23 Rey Tay MD [address] [place] [address]635 Gastroenterology 09/20/23 Rocky Zepeda DO [address] [place] [address] 383655 Physician Gastroenterology 09/20/23 Philip Dumont MD [address] [place] [address] 626515 Physician Ophthalmology 09/22/23 Meredith [place] PA-C [address] [place] [address] 537995 Assigned Gastroenterology Provider 11/01/23 Neil Kent MD [address] [place] [address] Dermatology 11/02/23 [place] [address] [address] Neurological Surgery 12/26/23 Audrey Waite PA-C 500 [place] [address] Physician Block Operator Dermatology 02/28/24 Valery Veronica PA-C [address] [place] [address] Physician Block Operator Dermatology 04/10/24 Herminia Hatch MD [facility]5 [place], [place] [address] Assigned Rheumatology Provider 07/02/24 documented as of this encounter
--- OUTSIDE RECORDS SUMMARY | 2024-08-28 19:08 | XMS_ITS | Encounter Summary ---
Author Organization [place] Address [address] [place] [address] Care Team Providers Care Multiple Pressure Riveter Operator Name Role Phone Lita Oseguera Unavailable Unavailable Marija Edgar APRN ADVENTURE GUIDE Primary Care Provider + Marija Edgar APRN ADVENTURE GUIDE Unavailable Mynor Broussard MD Unavailable [phone] Keisha Dotson MD Unavailable [phone] Galo Burrell MD Unavailable Unavailable Diana Desir [facility] Unavailable Rain Galaviz PA-C Unavailable Summer Lara MD Unavailable [phone] Tavia Wyatt MD Unavailable Johnny Murillo MD Unavailable [phone] Erica Farrell APRN ADVENTURE GUIDE Unavailable Teresita Bean [facility] Unavailable Tavia Wyatt MD Unavailable Diana Desir [facility] Unavailable Rich Barrett MD Unavailable [phone] Neil Kent MD Unavailable Roney Story DPM Unavailable Erica Farrell CELLAR HAND ADVENTURE GUIDE Unavailable Thang Diana Stanislav [facility] Unavailable Jelena David OD Unavailable [phone] Galo Burrell MD Unavailable Unavailable Livan Sharif MD Unavailable + Livan Sharif MD Unavailable + Catherine Cm MD Unavailable + Valery Veronica PA-C Unavailable [phone] Catherine Cm MD Unavailable + Johnny Murillo MD Unavailable [phone] Brea Quinn CELLAR HAND ADVENTURE GUIDE Unavailable [phone] Brea Quinn CELLAR HAND ADVENTURE GUIDE Unavailable [phone] Jose Francisco Johnson MD Unavailable Livan Sharif MD Unavailable + IsCatherine hobbs MD Unavailable + Sydnie Martinez RN Unavailable Unavailable Alfonso Renteria MD Unavailable Esha Grimm-C Primary Care Provider Cheng Todd PA-C Unavailable Radha Lomeli CELLAR HAND ADVENTURE GUIDE Unavailable [phone] Jelena David OD Unavailable Pao Joseph RN Unavailable Unavailable Esha Grimm-C Unavailable [phone] JeremíasValery damon PA-C Unavailable [phone] Rey Tay MD Unavailable Rocky Zepeda DO Unavailable Philip Dumont MD Unavailable [phone] Meredith CarreraC Unavailable [phone] Neil Kent MD Unavailable Juan Pablo Emmanuel MD Unavailable Audrey WaiteC Unavailable [phone] Valery Veronica PA-C Unavailable [phone] Herminia Hatch MD Unavailable Encounter Details Date Type Department Care Team (Late st Contact Info) Description 06/25/2021 [facility] [address] [address] [facility] [address] [place] [address] Psoriasis (Primary Dx) Social History Tobacco Use [...] attend chur ch or roman catholic services? More than 4 [...] in a halfway (including now)? No 08/11/2020 [place] Depression Scale Answer Date Recorded [place] Depression Score 5 01/14/2021 Last EPDS Self Harm Result Not on file 01/14 Education Answer Date Recorded What is the highest level of school you have completed or the highest degree you have received? 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 MANAGED CARE COORDINATOR Gender Identity Female 03/02/2021 5:45 PM CDT Sexual Orientation Straight 02/28/2020 12 :51 AM CDT COVID-19 Exposure Response Date Recorded In the last month, have you been in contact with someone who was confirmed or suspected to have Coronavirus / COVID-19? No / Unsure 06/26/2021 8:28 AM MANAGED CARE COORDINATOR documented as of this encounter Miscellaneous Notes * Telephone Encounter - Diana Desir [facility] - 06/26/2021 9:53 AM CST Discussed with PCP and verbal approval for betamethasone cream. Diana Desir, PharmD Medication Therapy Management Provider, [facility] Pager: [phone] GED CARE COORDINATOR documented in this encounter Plan of Treatment Upcoming Encounters Date Type Department Care Team (Late st Contact Info) Description 10/23/2024 9:30 AM CDT Office Visit [facility] - [place] [address] [facility], [address] [place] [phone] [place] [address] [place], [place] [address] Johnny Penn MD [address] [place], [place] [id number] documented as of this encounter Visit Diagnoses Diagnosis Psoriasis- Primary Other psoriasis documented in this encounter Additional Health Concerns Infection Onset Date Last Indicated Resolved Time Rule Out COVID-19 07/13/2021 07/13/2021 07/14/2021 3:04 PM MANAGED CARE COORDINATOR Rule Out COVID-19 07/18/2021 07/18/2021 07/20/2021 1:56 PM MANAGED CARE COORDINATOR COVID-19 07/18/2021 07/18/2021 08/08/2021 11:3 9 PM MANAGED CARE COORDINATOR Rule Out COVID-19 12/18/2021 12/18/2021 12/19/2021 11:34 AM CDT Rule Out COVID-19 02/24/2022 02/24/2022 02/25/2022 1:08 PM CDT Rule Out COVID-19 04/26/2022 04/26/2022 04/26/2022 6:47 AM CDT Rule Out COVID-19 05/17/2022 05/17/2022 05/17/2022 10:20 PM MANAGED CARE COORDINATOR Rule Out COVID-19 06/09/2022 06/09/2022 06/09/2022 9:35 AM MANAGED CARE COORDINATOR COVID-19 06/09/2022 06/09/2022 06/30/2022 11:4 1 PM MANAGED CARE COORDINATOR Rule Out COVID-19 11/10/2022 11/10/2022 11/11/2022 12:17 PM CDT Rule Out COVID-19 03/07/2023 03/07/2023 03/07/2023 1:20 PM CDT Rule Out COVID-19 12/26/2023 12/26/2023 12/26/2023 9:50 AM CDT Rule Out COVID-19 04/09/2024 04/09/2024 04/10/2024 6:48 PM CDT Assessment Noted Time PHQ-9 Depression Total Score: 2 04/02/20 10:19 AM CDT documented as of this encounter Care Teams Multiple Pressure Riveter Operator Relationship Specialty Start Date End Date Marija Edgar APRN ADVENTURE GUIDE PCP - General Nurse Practitioner 04/30/20 04/14/23 Esha Grimm PA-C [address] [place] [phone] PCP - General Family Medicine 05/04/23 Lita Oseguera Personal Advocate & Liaison (PAL) 02/28/20 03/27/23 Marjia Edgar APRN ADVENTURE GUIDE Assigned PCP 06/08/20 04/29/23 Mynor Broussard MD [address] [address] Assigned Surgical Provider 06/01/20 11/28/21 Keisha Dotson MD [address]09 [place], [place] 886745 Assigned Neuroscience Provider 06/04/20 04/01/23 Galo Burrell MD Assigned Heart and Vascular Provider 10/05/20 04/02/22 Diana Desir, [facility] [address] [place], [place] [address] Pharmacist Pharmacist 04/17/21 Rain Galaviz PA-C [address] [facility] [address] [place] [address] Physician Remote Encoding Center Manager Dermatology 04/28/21 Summer Lara MD [address] [place] [address] Assigned OBGYN Provider 05/31/21 Tavia Wyatt MD [address] [place], [place] [address] Dermatology 07/14/21 Johnny Murillo MD [address] [place] [address] Assigned Musculoskeletal Provider 08/30/21 03/17/22 Erica Farrell APRN ADVENTURE GUIDE [address] [facility] [address] [place] [address] Nurse Practitioner Cardiovascular Disease 09/09/21 Teresita Bean, [facility] [address] [place] [address] Pharmacist Pharmacist 09/24/21 09/29/21 Tavia Wyatt MD [address] [place], [place] [phone] Assigned Surgical Provider 11/29/21 05/07/22 Diana Desir, [facility] [address] [place] [address] Assigned MTM Pharmacist 01/02/22 Rich Barrett MD [address] [facility] [address] [place] [address] Physician Ophthalmology 01/21/22 Neil Kent MD [address] [place] [address] Dermatology 02/24/22 Roney Story DPM [address] [facility] [address] [place], [place] [address] Assigned Musculoskeletal Provider 03/20/22 08/13/22 Erica Farrell APRN ADVENTURE GUIDE 1700 [place] [address] Assigned Heart and Vascular Provider 04/03/22 04/16/22 Diana Desir, [facility] [address] [place] [address] Assigned MTM Pharmacist 04/07/22 Jelena David OD [address] [facility] [place] [address] Assigned Surgical Provider 05/08/22 10/08/22 Galo Burrell MD Assigned Heart and Vascular Provider 04/17/22 06/11/22 Livan Sharif MD [address] [place] 913485 Cardiovascular Disease 05/14/22 Livan Sharif MD [address] [place] 848345 Assigned Heart and Vascular Provider 06/12/22 07/23/22 Catherine Cm MD [address] [phone] [place] [address] Cardiovascular Disease 07/21/22 Valery Veronica, PA-C [address] [place] [address] Physician Remote Encoding Center Manager Dermatology 07/21/22 Catherine Cm MD [address] [address] Assigned Heart and Vascular Provider 07/24/22 11/05/22 Johnny Murillo MD [address] [place] [address] Assigned Musculoskeletal Provider 08/14/22 10/08/22 Brea Quinn APRN ADVENTURE GUIDE [address] [place] [address] Nurse Practitioner Dermatology 09/21/22 Brea Quinn APRN ADVENTURE GUIDE [address] [place] [address] Assigned Surgical Provider 10/09/22 05/01/24 [place] [address] [place] [address] Assigned Musculoskeletal Provider 10/09/22 05/01/24 Livan Sharif MD [address], [facility] [address] [place] [address] Assigned Heart and Vascular Provider 11/06/22 11/12/22 Catherine Cm MD [address] [place] [address] Assigned Heart and Vascular Provider 11/13/22 05/27/23 Sydnie Martinez, RN Personal Advocate & Liaison (PAL) Family Medicine 03/28/23 07/31/23 Alfonso Renteria MD [address] [facility] 200 [place] [address] Assigned Neuroscience Provider 04/02/23 Cheng Todd PA-C [address] [place] [address] Assigned PCP 04/30/23 07/15/23 Radha Lomeli APRN ADVENTURE GUIDE [address] [place] [address] Assigned Heart and Vascular Provider 05/28/23 Jelena David OD [facility] [facility] [place] [address] Ophthalmology 06/15/23 Pao Joseph, VJ Personal Advocate & Liaison (PAL) Nurse 08/01/23 11/07/23 Esha Grimm PA-C [address] [place] [address] Assigned PCP 07/16/23 Valery Veronica PA-C [address]09 [place] [address] Physician Remote Encoding Center Manager Dermatology 09/19/23 Rey Tay MD 9 [place] [address] MD Gastroenterology 09/20/23 Rocky Zepeda DO 500 [place] [address] Physician Gastroenterology 09/20/23 Philip Dumont MD [address] [place] [address] Physician Ophthalmology 09/22/23 Meredith Carrera PA-C 9 [place] [address] Assigned Gastroenterology Provider 11/01/23 Neil Kent MD [address] [address] Dermatology 11/02/23 [place] [address] [address] Neurological Surgery 12/26/23 Audrey Waite PA-C [address] [place] [address] Physician Remote Encoding Center Manager Dermatology 02/28/24 Valery Veronica PA-C [id number] [place] [address] Physician Remote Encoding Center Manager Dermatology 04/10/24 Herminia Hatch MD [address] [place] [address] [phone] Assigned Rheumatology Provider 07/02/24 documented as of this encounter
--- OUTSIDE RECORDS SUMMARY | 2024-08-28 19:08 | XMS_ITS | Encounter Summary ---
Author Organization [place] Address [address] [place] [address] Care Team Providers Care Freelance Displayer Name Role Phone Lita Oseguera Unavailable Unavailable Marija Edgar APRN RECONDITIONING ASSOCIATE Primary Care Provider + Marija Edgar APRN RECONDITIONING ASSOCIATE Unavailable Mynor Broussard MD Unavailable Keisha Dotson MD Unavailable [phone] Galo Burrell MD Unavailable Unavailable Diana Desir [facility] Unavailable Rain Galaviz PA-C Unavailable Summer Lara MD Unavailable [phone] Tavia Wyatt MD Unavailable Johnny Murillo MD Unavailable [phone] Erica Farrell APRN RECONDITIONING ASSOCIATE Unavailable Teresita Bean [facility] Unavailable Tavia Wyatt MD Unavailable Diana Desir [facility] Unavailable [phone] Rich Barrett MD Unavailable [phone] Neil Kent MD Unavailable Roney Story DPM Unavailable Erica Farrell RETAIL ATTENDANT RECONDITIONING ASSOCIATE Unavailable Thang Diana Stanislav [facility] Unavailable Jelena David OD Unavailable Galo Burrell MD Unavailable Unavailable Livan Sharif MD Unavailable + Livan Sharif MD Unavailable + Catherine Cm MD Unavailable + Valery Veronica PA-C Unavailable [phone] Catherine Cm MD Unavailable + Johnny Murillo MD Unavailable [phone] Brea Quinn RETAIL ATTENDANT RECONDITIONING ASSOCIATE Unavailable [phone] Brea Quinn RETAIL ATTENDANT RECONDITIONING ASSOCIATE Unavailable [phone] Jose Francisco Johnson MD Unavailable Livan Sharif MD Unavailable + IsCatherine hobbs MD Unavailable + Sydnie Martinez RN Unavailable Unavailable Alfonso Renteria MD Unavailable Esha Grimm-C Primary Care Provider Cheng Todd PA-C Unavailable Radha Lomeli RETAIL ATTENDANT RECONDITIONING ASSOCIATE Unavailable [phone] Jelena David OD Unavailable Pao Joseph RN Unavailable Unavailable Esha Grimm-C Unavailable [phone] JeremíasValery damon PA-C Unavailable [phone] Rey Tay MD Unavailable Rocky Zepeda DO Unavailable Philip Dumont MD Unavailable [phone] Meredith CarreraC Unavailable [phone] Neil Kent MD Unavailable Juan Pablo Emmanuel MD Unavailable [phone] Audrey WaiteC Unavailable [phone] Valery Veronica PA-C Unavailable [phone] Herminia Hatch MD Unavailable Encounter Details Date Type Department Care Team (Late st Contact Info) Description 08/04/2021 [facility] [address] [address] [place] Social History Tobacco [...] do you attend up health system or advent services? More than 4 times [...] in a mcfp (including now)? No 08/11/2020 [place] Depression Scale Answer Date Recorded [place] Depression Score 5 01/14/2021 Last EPDS Self Harm Result Not on file 01/14 Education Answer Date Recorded What is the highest level of school you have completed or the highest degree you have received? 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 RUBBER COMPOUNDER SUPERVISOR Gender Identity Female 03/02/2021 5:45 PM CDT Sexual Orientation Straight 02/28/2020 12 :51 AM CDT COVID-19 Exposure Response Date Recorded In the last month, have you been in contact with someone who was confirmed or suspected to have Coronavirus / COVID-19? No / Unsure 08/03/2021 2:24 PM RUBBER COMPOUNDER SUPERVISOR documented as of this encounter Plan of Treatment Upcoming Encounters Date Type Department Care Team (Late st Contact Info) Description 10/23/2024 9:30 AM CDT Office Visit [facility] Neurology Clinics [address], [address] [place] [address] [place] [address] [address] [place] [address] Johnny Penn MD [address] [place] [address] documented as of this encounter Visit Diagnoses Not on filedocumented in this encounter Additional Health Concerns Infection Onset Date Last Indicated Resolved Time COVID-19 07/18/2021 07/18/2021 08/08/2021 11:3 9 PM RUBBER COMPOUNDER SUPERVISOR Rule Out COVID-19 12/18/2021 12/18/2021 12/19/2021 11:34 AM CDT Rule Out COVID-19 02/24/2022 02/24/2022 02/25/2022 1:08 PM CDT Rule Out COVID-19 04/26/2022 04/26/2022 04/26/2022 6:47 AM CDT Rule Out COVID-19 05/17/2022 05/17/2022 05/17/2022 10:20 PM RUBBER COMPOUNDER SUPERVISOR Rule Out COVID-19 06/09/2022 06/09/2022 06/09/2022 9:35 AM RUBBER COMPOUNDER SUPERVISOR COVID-19 06/09/2022 06/09/2022 06/30/2022 11:4 1 PM RUBBER COMPOUNDER SUPERVISOR Rule Out COVID-19 11/10/2022 11/10/2022 11/11/2022 12:17 PM CDT Rule Out COVID-19 03/07/2023 03/07/2023 03/07/2023 1:20 PM CDT Rule Out COVID-19 12/26/2023 12/26/2023 12/26/2023 9:50 AM CDT Rule Out COVID-19 04/09/2024 04/09/2024 04/10/2024 6:48 PM CDT Assessment Noted Time PHQ-9 Depression Total Score: 2 04/02/20 10:19 AM CDT documented as of this encounter Care Teams Freelance Displayer Relationship Specialty Start Date End Date Marija Edgar APRN CNP PCP - General Nurse Practitioner 04/30/20 04/14/23 Esha Grimm PA-C [address] [place] [address] PCP - General Family Medicine 05/04/23 Lita Oseguera Personal Advocate & Liaison (PAL) 02/28/20 03/27/23 Marija Edgar APRN RECONDITIONING ASSOCIATE Assigned PCP 06/08/20 04/29/23 Mynor Broussard MD 6363 [facility] 500 [place], [place] [address] Assigned Surgical Provider 06/01/20 11/28/21 Keisha Dotson MD 909 [place], [place] [address] Assigned Neuroscience Provider 06/04/20 04/01/23 Galo Burrell MD Assigned Heart and Vascular Provider 10/05/20 04/02/22 [facility] [address]33 [place] [address] Pharmacist Pharmacist 04/17/21 Rain Galaviz PA-C [address] [facility] [address] [place] [address] Physician Fiction Writer Dermatology 04/28/21 Summer Lara MD [address] [place] [address] 669084 Assigned OBGYN Provider 05/31/21 9 2 Tavia Wyatt MD [address] [place] [address] 696604 Dermatology 07/14/21 Johnny Murillo MD [address] [place] [address] Assigned Musculoskeletal Provider 08/30/21 03/17/22 Erica Farrell APRN RECONDITIONING ASSOCIATE [address] [facility] [address] [place] [address] Nurse Practitioner Cardiovascular Disease 09/09/21 Teresita Bean [facility] [address] [facility] [place] [address] Pharmacist Pharmacist 09/24/21 09/29/21 Tavia Wyatt MD [address] [place] [address] Assigned Surgical Provider 11/29/21 05/07/22 [facility] 3033 [place] [address] Assigned MTM Pharmacist 01/02/22 Rich Barrett MD 516 [facility] 9[address] [place] [address] Physician Ophthalmology 01/21/22 Neil Kent MD 500 [place] [address] Dermatology 02/24/22 Roney Story DPM [address] [facility] [address] [place] [address] Assigned Musculoskeletal Provider 03/20/22 08/13/22 Erica Farrell APRN RECONDITIONING ASSOCIATE 17[address] [place] [address] Assigned Heart and Vascular Provider 04/03/22 04/16/22 Diana Desir, [facility] 30[address] [place] [address] Assigned [place] Pharmacist 04/07/22 Jelena David OD [address] [facility] [place] [address] Assigned Surgical Provider 05/08/22 10/08/22 Galo Burrell MD Assigned Heart and Vascular Provider 04/17/22 06/11/22 Livan Sharif MD [address] [place] [address] Cardiovascular Disease 05/14/22 Livan Sharif MD [address], [address] [place] [address] Assigned Heart and Vascular Provider 06/12/22 07/23/22 Catherine Cm MD [address] [place] [address] Cardiovascular Disease 07/21/22 Valery Veronica, PAUcheC 909 [place], [place] [address] Physician Fiction Writer Dermatology 07/21/22 Catherine Cm MD [address] [place] 2058[address] Assigned Heart and Vascular Provider 07/24/22 11/05/22 Johnny Murillo MD [address] [place] [address] Assigned Musculoskeletal Provider 08/14/22 10/08/22 Brea Quinn APRN RECONDITIONING ASSOCIATE [address] [place] [address] Nurse Practitioner Dermatology 09/21/22 Brea Quinn APRN RECONDITIONING ASSOCIATE [address] [place] [address] Assigned Surgical Provider 10/09/22 05/01/24 [place] [address] [address] Assigned Musculoskeletal Provider 10/09/22 05/01/24 Livan Sharif MD [address] [facility] [address] [place] [address] Assigned Heart and Vascular Provider 11/06/22 11/12/22 Catherine Cm MD [address] [facility] [address] [place] [address] Assigned Heart and Vascular Provider 11/13/22 05/27/23 Sydnie Martinez, VJ Personal Advocate & Liaison (PAL) Family Medicine 03/28/23 07/31/23 Alfonso Renteria MD [address] [facility] 200 [place], [place] [address] Assigned Neuroscience Provider 04/02/23 Cheng Todd PA-C [address] [place] [address] [id number] Assigned PCP 04/30/23 07/15/23 Radha Lomeli APRN RECONDITIONING ASSOCIATE 6[address] [facility] [address] [place], [place] [address] Assigned Heart and Vascular Provider 05/28/23 Jelena David OD [address] [facility] [address] [place] [phone] MD Ophthalmology 06/15/23 Pao Joseph, VJ Personal Advocate & Liaison (PAL) Nurse 08/01/23 11/07/23 Esha Grimm PA-C [address] [place] [address] Assigned PCP 07/16/23 Valery Veronica PA-C [address] [place] [address] 152855 Physician Fiction Writer Dermatology 09/19/23 Rey Tay MD [address] [place] [address] 518095 Gastroenterology 09/20/23 Rocky Zepeda DO [address] [place] [address] [phone] Physician Gastroenterology 09/20/23 Philip Dumont MD [address] [place] [address] 173015 Physician Ophthalmology 09/22/23 Meredith Carrera PA-C 909 [place], [place] 028735 Assigned Gastroenterology Provider 11/01/23 Neil Kent MD [address] [address] Dermatology 11/02/23 [place] [address] 196807 Neurological Surgery 12/26/23 Audrey Waite PA-C 500 [place] [address] Physician Fiction Writer Dermatology 02/28/24 Valery Veronica PA-C [address] [place] [address] Physician Fiction Writer Dermatology 04/10/24 Herminia Hatch MD [address]75 [place], [place] 455[address] Assigned Rheumatology Provider 07/02/24 documented as of this encounter
--- OUTSIDE RECORDS SUMMARY | 2024-08-28 19:08 | XMS_ITS | Encounter Summary ---
Author Organization [facility] Address [address] [place] [address] Care Team Providers Care Tool And Die Maker Level Five Name Role Phone Lita Oseguera Unavailable Unavailable Marija Edgar APRN METAL SANDER Primary Care Provider + Marija Edgar APRN METAL SANDER Unavailable [phone] Keisha Dotson MD Unavailable [phone] Diana Desir [facility] Unavailable [phone] Rain Galaviz PA-C Unavailable Tavia Wyatt MD Unavailable Erica Farrell APRN METAL SANDER Unavailable Rich Barrett MD Unavailable [phone] Neil Kent MD Unavailable Diana Desir [facility] Unavailable Livan Sharif MD Unavailable Catherine Cm MD Unavailable + Valery Veronica PA-C Unavailable [phone] Brea Quinn AREA MECHANIC METAL SANDER Unavailable Brea Quinn AREA MECHANIC METAL SANDER Unavailable Jose Francisco Johnson MD Unavailable Livan Sharif MD Unavailable Catherine Cm MD Unavailable + Sydnie Martinez RN Unavailable Unavailable Alfonso eRnteria MD Unavailable [phone] Esha Grimm PA-C Primary Care Provider [phone] Cheng Todd PA-C Unavailable Rdaha Lomeli APRN METAL SANDER Unavailable Jelena David OD Unavailable Pao Joseph RN Unavailable Unavailable Esha Grimm PA-C Unavailable [phone] Valery Veronica PA-C Unavailable [phone] Rey Tay MD Unavailable Rocky Zepeda DO Unavailable Philip Dumont MD Unavailable [phone] Meredith Carrera PA-C Unavailable [phone] Neil Kent MD Unavailable Juan Pablo Emmaunel MD Unavailable Audrey Waite PA-C Unavailable JeremíasValery damon PA-C Unavailable Herminia Hatch MD Unavailable Encounter Details Date Type Department Care Team (Late st Contact Info) Description 11/10/2022 MyC Medical Advice [facility] [address] [place] [address] Lauren Claudio PA-C [address] [place] [address] Social History Tobacco Use Types [...] How often do you attend yazidism or yazidism serv ices? Never 09/22/2021 Do [...] Recorded PHQ-2 Score 1 [facility] [facility] [...] in a usp (including now)? No 09/22/2021 [place] Depression Scale Answer Date Recorded [place] [...] CDT Legal Sex Female 4:13 AM OFFICE DIRECTOR Gender Identity Female 03/02/2021 5:45 PM [...] [facility] [address] [place] [address], [address] [place] [address] [place] [address] [address] [address] Johnny Penn MD [address] [facility] [address] documented as of this encounter Visit [...] as of this encounter Care Teams Tool And Die Maker Level Five Relationship Specialty Start Date End Date Marija Edgar APRN CNP PCP - General Nurse Practitioner 04/30/20 04/14/23 Esha Grimm PAUcehC [address] [place] [address] PCP - General Family Medicine 05/04/23 Lita Oseguera Personal Advocate & Liaison (PAL) 02/28/20 03/27/23 Marija Edgar APRN METAL SANDER Assigned PCP 06/08/20 04/29/23 Keisha Dotson MD [address] [place], [place] 270315 Assigned Neuroscience Provider 06/04/20 04/01/23 Diana Desir, [facility] [address] [place], [place] [address] Pharmacist Pharmacist 04/17/21 Rain Galaviz PA-C [address] [place] [address] [address] [place] [address] Physician Electronic Warfare Technical Dermatology 04/28/21 Tavia Wyatt MD [address] [place] [address] [address] [place], [place] [id number] Dermatology 07/14/21 Erica Farrell APRN METAL SANDER [address] [place] [address] Nurse Practitioner Cardiovascular Disease 09/09/21 Rich Barrett MD [address] 400[address] Physician Ophthalmology 01/21/22 Neil Kent MD [address] [place], [place] 686505 Dermatology 02/24/22 Diana Desir, [facility] [address] [place], [place] 732116 Assigned MTM Pharmacist 04/07/22 Livan Sharif MD [address] [place] 556835 Cardiovascular Disease 05/14/22 Catherine Cm MD [address] [place] [address] Cardiovascular Disease 07/21/22 Valery Veronica, PAUcheC [address] [place], [place] 466875 Physician Electronic Warfare Technical Dermatology 07/21/22 Brae Quinn APRN METAL SANDER [address] [place], [place] 377975 Nurse Practitioner Dermatology 09/21/22 Brea Quinn APRN METAL SANDER [address] [place], [place] 110332 Assigned Surgical Provider 10/09/22 05/01/24 [place] [address] [place] [address] Assigned Musculoskeletal Provider 10/09/22 05/01/24 Livan Sharif MD [address] [place], [place] 0025[address] Assigned Heart and Vascular Provider 11/06/22 11/12/22 Catherine Cm MD [address] [place] [address] Assigned Heart and Vascular Provider 11/13/22 05/27/23 Sydnie Martinez RN Personal Advocate & Liaison (PAL) Family Medicine 03/28/23 07/31/23 Alfonso Renteria MD [address] [facility] [address] [place] [address] Assigned Neuroscience Provider 04/02/23 Cheng Todd PA-C [address] [place] [address] [id number] Assigned PCP 04/30/23 07/15/23 Radha Lomeli APRN METAL SANDER [address] [place] [address] Assigned Heart and Vascular Provider 05/28/23 Jelena David OD [address] [facility] [address] Ophthalmology 06/15/23 Pao Joseph, VJ Personal Advocate & Liaison (PAL) Nurse 08/01/23 11/07/23 Esha Grimm PAUcheC [address] [place] [address] Assigned PCP 07/16/23 Valery Veronica PA-C [address] [place] [address] Physician Electronic Warfare Technical Dermatology 09/19/23 Rey Tay MD [address] [place] [address] MD Gastroenterology 09/20/23 Rocky Zepeda DO [address] [place], [place] 343325 Physician Gastroenterology 09/20/23 Philip Dumont MD 6 [place] [address] Physician Ophthalmology 09/22/23 Meredith Carrera PA-C 9 [place] [address] Assigned Gastroenterology Provider 11/01/23 Neil Kent MD [address] [place] [address] Dermatology 11/02/23 [place] [address] 567597 Neurological Surgery 12/26/23 Audrey Waite PA-C [address] [place] [address] Physician Electronic Warfare Technical Dermatology 02/28/24 Valery Veronica PA-C [address] [place] [address] Physician Electronic Warfare Technical Dermatology 04/10/24 Herminia Hatch MD [address] [place] [address] [phone] Assigned Rheumatology Provider 07/02/24 documented as of this encounter
--- OUTSIDE RECORDS SUMMARY | 2024-08-28 19:09 | XMS_ITS | Encounter Summary ---
Author Organization [facility] Address [address] [place] [address] Care Team Providers Care Scheduling Representative Name Role Phone Lita Oseguera Unavailable Unavailable Marija Edgar APRN STEM FRAZER Primary Care Provider + Marija Edgar APRN STEM FRAZER Unavailable [phone] Keisha Dotson MD Unavailable Diana Desir [facility] Unavailable [phone] Rain Galaviz PA-C Unavailable Tavia Wyatt MD Unavailable [phone] Erica Farrell APRN STEM FRAZER Unavailable Rich Barrett MD Unavailable [phone] Neil Kent MD Unavailable Diana Desir [facility] Unavailable Livan Sharif MD Unavailable Catherine Cm MD Unavailable + Valery Veronica PA-C Unavailable [phone] Catherine Cm MD Unavailable + Brea Quinn SEAFOOD PROCESSOR STEM FRAZER Unavailable [phone] Brea Quinn SEAFOOD PROCESSOR STEM FRAZER Unavailable Jose Francisco Johnson MD Unavailable Livan Sharif MD Unavailable Catherine Cm MD Unavailable + Sydnie Martinez RN Unavailable Unavailable Alfonso Renteria MD Unavailable [phone] Esha Grimm PA-C Primary Care Provider Cheng Todd PA-C Unavailable Radha Lomeli SEAFOOD PROCESSOR STEM FRAZER Unavailable Jelena David OD Unavailable Pao Joseph RN Unavailable Unavailable Esha Grimm PA-C Unavailable [phone] Valery Veronica PA-C Unavailable Rey Tay MD Unavailable Rocky Zepdea DO Unavailable Philip Dumont MD Unavailable [phone] Meredith Carrera PA-C Unavailable [phone] Neil Kent MD Unavailable Juan Pablo Emmanuel MD Unavailable Audrey Waite PA-C Unavailable JeremíasValery damon PA-C Unavailable Herminia Hatch MD Unavailable Encounter Details Date Type Department Care Team (Late st Contact Info) Description 10/22/2022 MyC Medical Advice [facility] [address] [place] [address] Lauren Claudio, PA-C [address] [place] [address] Social History Tobacco Use Types [...] How often do you attend denominational or nondenominational serv ices? Never 09/22/2021 Do [...] in a custodial (including now)? No 09/22/2021 [place] Depression Scale Answer Date Recorded [place] Depression Score 5 01/14/2021 Last EPDS Self Harm Result Not on file 01/14 Education Answer Date Recorded What is the highest level of school you have completed or the highest degree you have received? 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 INFORMATION CLERK CASHIER Gender Identity Female 03/02/2021 5:45 PM [...] CDT Office Visit [facility] [address] [facility], [address] [place] [address] [place] [address] [facility] [place] [address] Johnny Penn MD [address] [place] [phone] documented as of this encounter Visit Diagnoses [...] documented as of this encounter Care Teams Scheduling Representative Relationship Specialty Start Date End Date Marija Edgar APRN STEM FRAZER PCP - General Nurse Practitioner 04/30/20 04/14/23 Esha Grimm PA-C [address] [place] [address] PCP - General Family Medicine 05/04/23 Lita Oseguera Personal Advocate & Liaison (PAL) 02/28/20 03/27/23 Marija Edgar APRN STEM FRAZER Assigned PCP 06/08/20 04/29/23 Keisha Dotson MD [address] [place], [place] 010445 Assigned Neuroscience Provider 06/04/20 04/01/23 [facility] [address] [place], [place] [address] Pharmacist Pharmacist 04/17/21 Rain Galaviz PA-C [address] [place] [address] [address] [place] [address] Physician Paraprofessional Interpreter Dermatology 04/28/21 Tavia Wyatt MD [address] [place] [address] [address] [place] [address] Dermatology 07/14/21 Erica Farrell APRN STEM FRAZER [address] [place] [address] Nurse Practitioner Cardiovascular Disease 09/09/21 Rich Barrett MD [address] [address] Physician Ophthalmology 01/21/22 Neil Kent MD 500 [place], [place] 782865 Dermatology 02/24/22 Diana Desir, [facility] [address] [place], [place] 087[address] Assigned MTM Pharmacist 04/07/22 Livan Sharif MD [address], [facility]00 [place], [place] [address]66[address] Cardiovascular Disease 05/14/22 Catherine Cm MD [address] [facility] [place], [place] 826975 Cardiovascular Disease 07/21/22 Valery Veronica, PA-C [address] [place] [address]235 Physician Paraprofessional Interpreter Dermatology 07/21/22 Catherine Cm MD [address] [facility]00 [place], [place] 966135 Assigned Heart and Vascular Provider 07/24/22 11/05/22 Brea Quinn APRN STEM FRAZER 500 [place] [address] Nurse Practitioner Dermatology 09/21/22 Brea Quinn APRN STEM FRAZER [address] [place] [address] [id number] Assigned Surgical Provider 10/09/22 05/01/24 [place] [address] [place] [address] Assigned Musculoskeletal Provider 10/09/22 05/01/24 Livan Sharif MD [address] [facility] [address] [place] [address] Assigned Heart and Vascular Provider 11/06/22 11/12/22 Catherine Cm MD [address] [facility] [address] [place] [address] Assigned Heart and Vascular Provider 11/13/22 05/27/23 Sydnie Martinez RN Personal Advocate & Liaison (PAL) Family Medicine 03/28/23 07/31/23 Alfonso Renteria MD [address] [facility] 200 [place] [address] Assigned Neuroscience Provider 04/02/23 Cheng Todd PA-C [address] [place] [address] [phone] Assigned PCP 04/30/23 07/15/23 Radha Lomeli APRN STEM FRAZER [address] [place] 597885 Assigned Heart and Vascular Provider 05/28/23 [place] David OD [address] [facility] [place] [address] MD Ophthalmology 06/15/23 Pao Joseph, RN Personal Advocate & Liaison (PAL) Nurse 08/01/23 11/07/23 Esha Grimm PA-C [address] [place] [address] Assigned PCP 07/16/23 Valery Veronica PA-C [address] [place] [address] 762795 Physician Paraprofessional Interpreter Dermatology 09/19/23 Rey Tay MD [address] [place] [address]175 Gastroenterology 09/20/23 Rocky Zepeda DO [address] [place] [address] 138105 Physician Gastroenterology 09/20/23 Philip Dumont MD [address] [place] [address] 818605 Physician Ophthalmology 09/22/23 Meredith Carrera PA-C [address] [place] [address] 888805 Assigned Gastroenterology Provider 11/01/23 Neil Kent MD [address] 256730 Dermatology 11/02/23 [place] [address] [place] [address] Neurological Surgery 12/26/23 Audrey Waite PA-C 500 [place] [address] Physician Paraprofessional Interpreter Dermatology 02/28/24 Valery Veronica PA-C [address] [place] [address] Physician Paraprofessional Interpreter Dermatology 04/10/24 Herminia Hatch MD [address] [place] [address] [phone] Assigned Rheumatology Provider 07/02/24 documented as of this encounter
--- OUTSIDE RECORDS SUMMARY | 2024-08-28 19:09 | XMS_ITS | Encounter Summary ---
Author Organization [facility] Address [address] [place] [address] Care Team Providers Care Dye Machine Operator Name Role Phone Lita Oseguera Unavailable Unavailable Marija Edgar APRN FORM COVERER Primary Care Provider + Chanelle Mccann APRN CNM Unavailab le Kyara De La Fuente RN Unavailable [phone] Marija Edgar APRN FORM COVERER Unavailable [phone] Mynor Broussard MD Unavailable [phone] Keisha Dotson MD Unavailable Galo Burrell MD Unavailable Unavailable Cristina Wood Unavailable Diana Desir [facility] Unavailable Rain Galaviz PA-C Unavailable Summer Lara MD Unavailable [phone] Summer Lara MD Unavailable [phone] Summer Lara MD Unavailable Tavia Wyatt MD Unavailable Johnny Murillo MD Unavailable Erica Farrell APRN FORM COVERER Unavailable Vikas Teresita Watson [facility] Unavailable Tavia Wyatt MD Unavailable Diana Deisr [facility] Unavailable [phone] Rich Barrett MD Unavailable Neil Kent MD Unavailable Roney Story DPM Unavailable [phone] Erica Farrell APRN FORM COVERER Unavailable Diana Desir [facility] Unavailable [phone] Jelena David Unavailable Galo Burrell MD Unavailable Unavailable Livan Sharif MD Unavailable Livan Sharif MD Unavailable + Catherine Cm MD Unavailable + Valery Veronica-C Unavailable [phone] Catherine Cm MD Unavailable + Johnny Murillo MD Unavailable [phone] Brea Quinn CHIEF RESERVOIR ENGINEERING FORM COVERER Unavailable [phone] Brea Quinn CHIEF RESERVOIR ENGINEERING FORM COVERER Unavailable [phone] Jose Francisco Johnson MD Unavailable Livan Sharif MD Unavailable + Catherine Cm MD Unavailable + Sydnie Martinez RN Unavailable Unavailable Alfonso Renteria MD Unavailable [phone] Esha Grimm PA-C Primary Care Provider Cheng Todd PA-C Unavailable [phone] Radha Lomeli CHIEF RESERVOIR ENGINEERING FORM COVERER Unavailable [phone] Jelena David OD Unavailable Pao Joseph RN Unavailable Unavailable Esha Grimm PA-C Unavailable [phone] Valery Veronica PA-C Unavailable [phone] Rey Tay MD Unavailable Rocky Zepeda DO Unavailable Philip Dumont MD Unavailable [phone] Meredith Carrera PA-C Unavailable [phone] Neil Kent MD Unavailable Juan Pablo Emmanuel MD Unavailable [phone] Audrey Waite PA-C Unavailable [phone] Valery Veronica PA-C Unavailable Herminia Hatch MD Unavailable Encounter Details Date Type Department Care Team (Late st Contact Info) Description 02/06/[address] [address] Medina Diopview Social History Tobacco [...] Recorded PHQ-2 Score 3 09/29/2020 [facility] [...] in a mcfp (including now)? No 08/11/2020 Sandborn Depression Scale Answer Date Recorded Sandborn Depression Score 5 01/14/2021 Last EPDS Self Harm Result Not on file 01/14 Education Answer Date Recorded What is the highest level of school you have completed or the highest degree you have received? 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 TELE MARKETING EXECUTIVE Gender Identity Female 03/02/2021 5:45 PM CDT [...] CDT Office Visit [facility] Neurology [address], [address] [place] [address] [place] [address] [address] [place] [address] Johnny Penn MD [address] [place] [address] documented as of this encounter Visit Diagnoses Not on filedocumented in this encounter Additional Health Concerns Infection Onset Date Last Indicated Resolved Time Rule Out COVID-19 05/11/2021 05/11/2021 05/13/2021 10:18 AM CDT Rule Out COVID-19 07/13/2021 07/13/2021 07/14/2021 3:04 PM TELE MARKETING EXECUTIVE Rule Out COVID-19 07/18/2021 07/18/2021 07/20/2021 1:56 PM TELE MARKETING EXECUTIVE COVID-19 07/18/2021 07/18/2021 08/08/2021 11:3 9 PM TELE MARKETING EXECUTIVE Rule Out COVID-19 12/18/2021 12/18/2021 12/19/2021 11:34 AM CDT Rule Out COVID-19 02/24/2022 02/24/2022 02/25/2022 1:08 PM CDT Rule Out COVID-19 04/26/2022 04/26/2022 04/26/2022 6:47 AM CDT Rule Out COVID-19 05/17/2022 05/17/2022 05/17/2022 10:20 PM TELE MARKETING EXECUTIVE Rule Out COVID-19 06/09/2022 06/09/2022 06/09/2022 9:35 AM TELE MARKETING EXECUTIVE COVID-19 06/09/2022 06/09/2022 06/30/2022 11:4 1 PM TELE MARKETING EXECUTIVE Rule Out COVID-19 11/10/2022 11/10/2022 11/11/2022 12:17 PM CDT Rule Out COVID-19 03/07/2023 03/07/2023 03/07/2023 1:20 PM CDT Rule Out COVID-19 12/26/2023 12/26/2023 12/26/2023 9:50 AM CDT Rule Out COVID-19 04/09/2024 04/09/202404/1004/10/2024 6:48 PM CDT Assessment Noted Time PHQ-9 Depression Total Score: 6 09/30/19 21 3:25 PM CDT documented as of this encounter Care Teams Dye Machine Operator Relationship Specialty Start Date End Date Marija Edgar APRN FORM COVERER PCP - General Nurse Practitioner 04/30/20 04/14/23 Esha Grimm PA-C [address] [place] [phone] PCP - General Family Medicine 05/04/23 Lita Oseguera Personal Advocate & Liaison (PAL) 02/28/20 03/27/23 Chanelle Mccann APRN CNM [address] [place] [address] 200 [place], [place] 655717 Assigned OBGYN Provider 05/02/2005/09 Kyara De La Fuente, RN Specialty Gas Meter Repairer Neurology 06/04/20 03/05/21 Marija Edgar APRN FORM COVERER Assigned PCP 06/08/20 04/29/23 Mynor Broussard MD 6363 [facility] 500 [place], [place] 441135 Assigned Surgical Provider 06/01/20 11/28/21 Keisha Dotson MD 909 [place] [address] Assigned Neuroscience Provider 06/04/20 04/01/23 Galo Burrell MD Assigned Heart and Vascular Provider 10/05/20 04/02/22 Cristina anderson Financial Resource Worker 02/09/21 02/09/21 Diana Desir, [facility] [address] [place] [address] Pharmacist Pharmacist 04/17/21 Rain Galaviz PA-C [address] [facility] [place] [address] Physician Children'S Nursery Assistant Dermatology 04/28/21 Summer Lara MD [address] [place] [address] Assigned OBGYN Provider 05/10/2105/23 Summer Lara MD [address] [place], [place] [address] Assigned OBGYN Provider 05/31/21 Summer Lara MD [address] [place] [address] Assigned OBGYN Provider 05/24/2105/30 Tavia Wyatt MD [address] [place] [address] Dermatology 07/14/21 Johnny Murillo MD [address] [facility] [address] [place] [address] Assigned Musculoskeletal Provider 08/30/21 03/17/22 Erica Farrell APRN FORM COVERER 6405 [facility] [address] [place], [place] 1180[address] Nurse Practitioner Cardiovascular Disease 09/09/21 Teresita Bean, [facility] [address] [place] [address] Pharmacist Pharmacist 09/24/21 09/29/21 Tavia Wyatt MD [address] [place] [address] Assigned Surgical Provider 11/29/21 05/07/22 [facility] 3033 [place] [address] Assigned MTM Pharmacist 01/02/22 Rich Barrett MD [address] 868765 Physician Ophthalmology 01/21/22 Neil Kent MD 500 [place], [place] [address] Dermatology 02/24/22 [place] [address] [facility] [address] [place] [address] Assigned Musculoskeletal Provider 03/20/22 08/13/22 Erica Farrell APRN FORM COVERER 1700 [place] [address] Assigned Heart and Vascular Provider 04/03/22 04/16/22 [facility] [address] [place], [place] 7[address] Assigned MTM Pharmacist 04/07/22 Frankie Jelena TempletonSONJA woods [address] [facility] [place] [place] [address] Assigned Surgical Provider 05/08/22 10/08/22 Galo Burrell MD Assigned Heart and Vascular Provider 04/17/22 06/11/22 Livan Sharif MD [address] [place] 8[address] MD Cardiovascular Disease 05/14/22 Livan Sharif MD [address] [place] 001395 Assigned Heart and Vascular Provider 06/12/22 07/23/22 Catherine Cm MD [address] [facility] [address] [place] 3696[address] Cardiovascular Disease 07/21/22 Valery Veronica, PA-C 909 [place], [place] 160485 Physician Children'S Nursery Assistant Dermatology 07/21/22 Catherine Cm MD [address] [place] 372325 Assigned Heart and Vascular Provider 07/24/22 11/05/22 Johnny Murillo MD [address] [place] [address] Assigned Musculoskeletal Provider 08/14/22 10/08/22 Brea Quinn APRN FORM COVERER 500 [place] [address] Nurse Practitioner Dermatology 09/21/22 Brea Quinn APRN FORM COVERER 6401 [place] [address] Assigned Surgical Provider 10/09/22 05/01/24 [place] [address] [facility] 300 [place] [address] Assigned Musculoskeletal Provider 10/09/22 05/01/24 Livan Sharif MD [address], [facility] [address] [place] [address] Assigned Heart and Vascular Provider 11/06/22 11/12/22 Catherine Cm MD [address] [facility] [address] [facility] [address] [place], [place] 332225 Assigned Heart and Vascular Provider 11/13/22 05/27/23 Sydnie Martinez RN Personal Advocate & Liaison (PAL) Family Medicine 03/28/23 07/31/23 Alfonso Renteria MD 5775 [facility] 200 [place] [address] Assigned Neuroscience Provider 04/02/23 Cheng Todd PA-C [address] [place] [address] [id number] Assigned PCP 04/30/23 07/15/23 Radha Lomeli APRN FORM COVERER [address] [place] [address] Assigned Heart and Vascular Provider 05/28/23 Jelena David OD [address] [facility] [place] [address] MD Ophthalmology 06/15/23 Pao Joseph, RN Personal Advocate & Liaison (PAL) Nurse 08/01/23 11/07/23 Esha Grimm PA-C [address] [place] [phone] Assigned PCP 07/16/23 Valery Veronica PA-C [address] [place] [address] 543365 Physician Children'S Nursery Assistant Dermatology 09/19/23 Rey Tay MD [address] [place] [address] Gastroenterology 09/20/23 Rocky Zepeda DO [address] [place] [address] 989795 Physician Gastroenterology 09/20/23 Philip Dumont MD [address] [place] [address] 413075 Physician Ophthalmology 09/22/23 Meredith Carrera PA-C [address] [place] [address] 942535 Assigned Gastroenterology Provider 11/01/23 Neil Kent MD [address] [address] Dermatology 11/02/23 [place] [address] 343277 Neurological Surgery 12/26/23 Audrey Waite PA-C 500 [place] [address] Physician Children'S Nursery Assistant Dermatology 02/28/24 Valery Veronica PA-C [address] [place] [address] Physician Children'S Nursery Assistant Dermatology 04/10/24 Herminia Hatch MD [facility]5 [place], [place] [address] Assigned Rheumatology Provider 07/02/24 documented as of this encounter
--- OUTSIDE RECORDS SUMMARY | 2024-08-28 19:09 | XMS_ITS | Encounter Summary ---
Author Organization [facility] Address [address] [place] [address] Care Team Providers Care Quarter Doper Name Role Phone Lita Oseguera Unavailable Unavailable Marija Edgar OIL AGENT ANIMAL PATHOLOGY TEACHER Primary Care Provider + Chanelle Mccann OIL AGENT CNM Unavailab le Marija Edgar APRN ANIMAL PATHOLOGY TEACHER Unavailable Mynor Broussard MD Unavailable [phone] Keisha Dotson MD Unavailable Galo Burrell MD Unavailable Unavailable Diana Desir [facility] Unavailable Rain Galaviz PA-C Unavailable Summer Lara MD Unavailable [phone] Summer Lara MD Unavailable [phone] Summer Lara MD Unavailable [phone] Tavia Wyatt MD Unavailable Johnny Murillo MD Unavailable Erica Farrell OIL AGENT ANIMAL PATHOLOGY TEACHER Unavailable Teresita Bean [facility] Unavailable [phone] Tavia Wyatt MD Unavailable DesirDiana [facility] Unavailable [phone] Rich Barrett MD Unavailable [phone] Neil Kent MD Unavailable Roney StoryM Unavailable [phone] Erica Farrell APRN ANIMAL PATHOLOGY TEACHER Unavailable + Diana Desir [facility] Unavailable [phone] Jelena David OD Unavailable Galo Burrell MD Unavailable Unavailable Livan Sharif MD Unavailable + Livan Sharif MD Unavailable + Catherine Cm MD Unavailable + Valery VeronicaC Unavailable [phone] Catherine Cm MD Unavailable + Johnny Murillo MD Unavailable [phone] Brea Quinn OIL AGENT ANIMAL PATHOLOGY TEACHER Unavailable [phone] Brea Quinn OIL AGENT ANIMAL PATHOLOGY TEACHER Unavailable [phone] Jose Francisco Johnson MD Unavailable Livan Sharif MD Unavailable + Catherine Cm MD Unavailable + Sydnie Martinez RN Unavailable Unavailable Alfonso Renteria MD Unavailable [phone] Esha GrimmC Primary Care Provider Cheng Todd PA-C Unavailable [phone] Radha Lomeli APRN ANIMAL PATHOLOGY TEACHER Unavailable [phone] Jelena David OD Unavailable Jake, Pao RN Unavailable Unavailable Alfa, Esha M PA-C Unavailable [phone] Valery VeronicaC Unavailable [phone] Rey Tay MD Unavailable Duane Rockyanen [place] Unavailable Philip Dumont MD Unavailable Meredith Carrera PAUcheC Unavailable Neil Kent MD Unavailable Juan Pablo Emmanuel MD Unavailable [phone] Audrey Waite PA-C Unavailable [phone] Valery Veronica PA-C Unavailable [phone] Herminia Hatch MD Unavailable Encounter Details Date Type Department Care Team (Late st Contact Info) Description 04/17/2021 [facility] [address] [address] Marija Edgar APRN ANIMAL PATHOLOGY TEACHER [facility] [address] Social History Tobacco Use Types [...] week 08/07/2020 How often do you attend [facility]? More than 4 [...] 0 04/02/2021 [facility] - Occupational Stress Questionnaire Answer Date [...] a nursing home (including now)? No 08/11/2020 Wells Depression Scale Answer Date Recorded Wells Depression Score 5 01/14/2021 Last EPDS Self Harm Result Not on file 01/14 Education Answer Date Recorded What is the highest level of school you have completed or the highest degree you have received? 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 COTTON INSPECTOR Gender Identity Female 03/02/2021 5:45 PM [...] AM CDT Office Visit [facility] Neurology [facility] - [address], [address] [place] [address] Juan [place] [id number] [place] [address] [place] [address] Johnny Penn MD [address] [place] [address] documented as of this encounter Visit Diagnoses Not on filedocumented in this encounter Additional Health Concerns Infection Onset Date Last Indicated Resolved Time Rule Out COVID-19 05/11/2021 05/11/2021 05/13/2021 10:18 AM CDT Rule Out COVID-19 07/13/2021 07/13/2021 07/14/2021 3:04 PM COTTON INSPECTOR Rule Out COVID-19 07/18/2021 07/18/2021 07/20/2021 1:56 PM COTTON INSPECTOR COVID-19 07/18/2021 07/18/2021 08/08/2021 11:3 9 PM COTTON INSPECTOR Rule Out COVID-19 12/18/2021 12/18/2021 12/19/2021 11:34 AM CDT Rule Out COVID-19 02/24/2022 02/24/2022 02/25/2022 1:08 PM CDT Rule Out COVID-19 04/26/2022 04/26/2022 04/26/2022 6:47 AM CDT Rule Out COVID-19 05/17/2022 05/17/2022 05/17/2022 10:20 PM COTTON INSPECTOR Rule Out COVID-19 06/09/2022 06/09/2022 06/09/2022 9:35 AM COTTON INSPECTOR COVID-19 06/09/2022 06/09/2022 06/30/2022 11:4 1 PM COTTON INSPECTOR Rule Out COVID-19 11/10/2022 11/10/2022 11/11/2022 12:17 PM CDT Rule Out COVID-19 03/07/2023 03/07/2023 03/07/2023 1:20 PM CDT Rule Out COVID-19 12/26/2023 12/26/2023 12/26/2023 9:50 AM CDT Rule Out COVID-04/09/2024 04/09/2024 04/10/2024 6:48 PM CDT Assessment Noted Time PHQ-9 Depression Total Score: 2 04/02/20 10:19 AM CDT documented as of this encounter Care Teams Quarter Doper Relationship Specialty Start Date End Date Marija Edgar APRN ANIMAL PATHOLOGY TEACHER PCP - General Nurse Practitioner 04/30/20 04/14/23 Esha Grimm PA-C [address] [place] [phone] PCP - General Family Medicine 05/04/23 Lita Oseguera Personal Advocate & Liaison (PAL) 02/28/20 03/27/23 Chanelle Mccann APRN CNAdam [address] [place] [address] 200 [place] [address] Assigned OBGYN Provider 05/02/2005/09 Marija Edgar APRN ANIMAL PATHOLOGY TEACHER Assigned PCP 06/08/20 04/29/23 Mynor Broussard MD 6363 [facility] 500 [place], [place] 18[address] Assigned Surgical Provider 06/01/20 11/28/21 Keisha Dotson MD 909 [place], [place] 371645 Assigned Neuroscience Provider 06/04/20 04/01/23 Galo Burrell MD Assigned Heart and Vascular Provider 10/05/20 04/02/22 [facility] [address] [place] [address] Pharmacist Pharmacist 04/17/21 Rain Galaviz PA-C [address] [place] [address] [place] [address] Physician Child Welfare Social Worker Dermatology 04/28/21 Summer Lara MD [address] [place] [address] Assigned OBGYN Provider 05/10/2105/23 Summer Lara MD [address] [place] [address] Assigned OBGYN Provider 05/31/21 Summer Lara MD [address] [place] [address] [address] [place], [place] 118214 Assigned OBGYN Provider 05/24/2105/30 Tavia Wyatt MD [address] [place], [place] [address] Dermatology 07/14/21 Johnny Murillo MD [address] [place] [address] Assigned Musculoskeletal Provider 08/30/21 03/17/22 Erica Farrell APRN ANIMAL PATHOLOGY TEACHER 6405 [facility] [address] [place] [address] Nurse Practitioner Cardiovascular Disease 09/09/21 Teresita Bean, [facility] [address] [place] [address] Pharmacist Pharmacist 09/24/21 09/29/21 Tavia Wyatt MD [address] [place] [address] Assigned Surgical Provider 11/29/21 05/07/22 [facility] 3033 [place], [place] [address] Assigned MTM Pharmacist 01/02/22 Rich Barrett MD [address] 729[address] Physician Ophthalmology 01/21/22 Neil Kent MD 500 [place], [place] 96[address]75 Dermatology 02/24/22 [place] [address] [facility] [address] [place] [address] Assigned Musculoskeletal Provider 03/20/22 08/13/22 Erica Farrell APRN ANIMAL PATHOLOGY TEACHER 1700 [place] [address] Assigned Heart and Vascular Provider 04/03/22 04/16/22 Diana Desir, [facility] [address] [place] [address] Assigned MTM Pharmacist 04/07/22 Jelena David OD [address] [facility] [place] [address] Assigned Surgical Provider 05/08/22 10/08/22 Galo Burrell MD Assigned Heart and Vascular Provider 04/17/22 06/11/22 Livan Sharif MD [address] [place] [address] Cardiovascular Disease 05/14/22 Livan Sharif MD [address] [place] [address] Assigned Heart and Vascular Provider 06/12/22 07/23/22 Catherine Cm MD [address] [facility] [address] [place] [address] Cardiovascular Disease 07/21/22 Valery Veronica, PA-C 909 [place] [address] Physician Child Welfare Social Worker Dermatology 07/21/22 Catherine Cm MD [address] [place] [address] Assigned Heart and Vascular Provider 07/24/22 11/05/22 Johnny Murillo MD [facility] [address] [address] Assigned Musculoskeletal Provider 08/14/22 10/08/22 Brea Quinn APRN ANIMAL PATHOLOGY TEACHER [address] [place] [address] Nurse Practitioner Dermatology 09/21/22 Brea Quinn APRN ANIMAL PATHOLOGY TEACHER [facility] [facility] [place] [address] Assigned Surgical Provider 10/09/22 05/01/24 [place] [address] [place] [address] Assigned Musculoskeletal Provider 10/09/22 05/01/24 Livan Sharif MD [address] [facility] [address] [place] [address] Assigned Heart and Vascular Provider 11/06/22 11/12/22 Catherine Cm MD [address] [facility] [address] [place] [address] Assigned Heart and Vascular Provider 11/13/22 05/27/23 Sydnie Martinez RN Personal Advocate & Liaison (PAL) Family Medicine 03/28/23 07/31/23 Alfonso Renteria MD 5775 [facility] 200 [place] [address] Assigned Neuroscience Provider 04/02/23 Cheng Todd PA-C [address] [place] [address] Assigned PCP 04/30/23 07/15/23 Radha Lomeli APRN ANIMAL PATHOLOGY TEACHER [address] [place] [address] Assigned Heart and Vascular Provider 05/28/23 Jelena David OD [address] [facility] [place] [address] MD Ophthalmology 06/15/23 Pao Joseph, VJ Personal Advocate & Liaison (PAL) Nurse 08/01/23 11/07/23 Esha Grimm PA-C [address] [place] [phone] Assigned PCP 07/16/23 Valery Veronica PA-C [address] [place] [address] Physician Child Welfare Social Worker Dermatology 09/19/23 Rey Tay MD [address] [place] [address] 366905 Gastroenterology 09/20/23 Rocky Zepeda DO [address] [place] [address] 927255 Physician Gastroenterology 09/20/23 Philip Dumont MD [address] [place] [address] 222155 Physician Ophthalmology 09/22/23 Meredith Carrera PA-C [address] [place] [address] 242685 Assigned Gastroenterology Provider 11/01/23 Neil Kent MD [address] [place] [address] 710006 [phone] Dermatology 11/02/23 [place] [address] [place] [address] Neurological Surgery 12/26/23 Audrey Waite PA-C 500 [place] [address] Physician Child Welfare Social Worker Dermatology 02/28/24 Valery Veronica PA-C [address] [place] [address] Physician Child Welfare Social Worker Dermatology 04/10/24 Herminia Hatch MD [facility]5 [place], [place] 393[address] Assigned Rheumatology Provider 07/02/24 documented as of this encounter
--- OUTSIDE RECORDS SUMMARY | 2024-08-28 19:09 | XMS_ITS | Encounter Summary ---
Author Organization [place] Address [address] [place] [address] Care Team Providers Care Door Patcher Name Role Phone Lita Oseguera Unavailable Unavailable Marija Edgar APRN TRAVEL REGISTERED NURSE NICU Primary Care Provider + Marija Edgar APRN TRAVEL REGISTERED NURSE NICU Unavailable [phone] Keisha Dotson MD Unavailable Diana Desir [facility] Unavailable Rain Galaviz PA-C Unavailable Tavia Wyatt MD Unavailable [phone] Erica Farrell APRN TRAVEL REGISTERED NURSE NICU Unavailable Rich Barrett MD Unavailable [phone] Neil Kent MD Unavailable Diana Desir [facility] Unavailable [phone] Livan Sharif MD Unavailable Catherine Cm MD Unavailable + Valery Veronica PA-C Unavailable [phone] Catherine Cm MD Unavailable + Brea Quinn STEM CRUSHER TRAVEL REGISTERED NURSE NICU Unavailable Brea Quinn APRN TRAVEL REGISTERED NURSE NICU Unavailable Jose Francisco Johnson MD Unavailable Livan Sharif MD Unavailable Catherine Cm MD Unavailable + Sydnie Martinez RN Unavailable Unavailable Alfonso Renteria MD Unavailable [phone] Esha Grimm PA-C Primary Care Provider Cheng Todd PA-C Unavailable Radha Lomeli STEM CRUSHER TRAVEL REGISTERED NURSE NICU Unavailable Jelena David Radha OD Unavailable Pao Joseph RN Unavailable Unavailable Esha Grimm PA-C Unavailable [phone] Valery Veronica PA-C Unavailable Rey Tay [...] Team (Late st Contact Info) Description 10/11/2022 [facility] [address] [facility] [address] [place] [address] [place] [address] [place] [address] Pt. Information/instructio n; Appointment Social History Tobacco [...] How often do you attend hindu or cheondoism serv ices? Never 09/22/2021 Do [...] in a correction (including now)? No 09/22/2021 Boyd Depression Scale Answer Date Recorded Boyd Depression Score 5 01/14/2021 Last EPDS Self Harm Result Not on file 01/14 Education Answer Date Recorded What is the highest level of school you have completed or the highest degree you have received? 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 SLOT SUPERVISOR Gender Identity Female 03/02/2021 5:45 PM [...] encounter. Please see new request below from [facility] and advise. Mandi Byrd RN * Telephone Encounter - Treasure Lee - 10/15/2022 2:14 PM CDT Health Call Center Phone Message May a detailed message be left on voicemail: yes Reason for Call: Other: [facility] wondering if she can also be conference in on patient's upcoming appointment (10/27). Action Taken: Other: [facility] Sports Medicine Travel Screening: Not Applicable * Telephone Encounter - Mary Easley - 10/12/2022 12:47 PM CDT Called [facility] to discuss what they are needing from 's office. No answer. Left message to call back Kristina Easley ATC * Telephone Encounter - Treasure Lee - 10/11/2022 10:05 AM CDT [facility] Call Center Phone Message May a detailed message be left on voicemail: yes Reason for Call: Other: Please contact patient's inspector and adjuster golf club head, Rosalva so she can authorize patient's MRI. Ros[facility]va's contact info: phone# [phone] fax# [phone] Action Taken: Other: [facility] Sports Medicine Travel Screening: Not Applicable documented in this encounter Plan of Treatment Upcoming Encounters Date Type Department Care Team (Late Contact Info) Description 10/23/2024 9:30 AM CDT Office Visit [facility] Neurology Clinics - [address], [address] [place] [phone] [place] [address] [address] Johnny Penn MD [address] [facility] [place] [address] documented as of this encounter Visit [...] documented as of this encounter Care Teams Door Patcher Relationship Specialty Start Date End Date Marija Edgar APRN TRAVEL REGISTERED NURSE NICU PCP - General Nurse Practitioner 04/30/20 04/14/23 Esha Grimm PA-C [address] [place] [address] PCP - General Family Medicine 05/04/23 Lita Oseguera Personal Advocate & Liaison (PAL) 02/28/20 03/27/23 Marija Edgar APRN TRAVEL REGISTERED NURSE NICU Assigned PCP 06/08/20 04/29/23 Keisha Dotson MD [address] [place] [address] Assigned Neuroscience Provider 06/04/20 04/01/23 Diana Desir, [facility] [address] [place], [place] [phone] Pharmacist Pharmacist 04/17/21 Rain Galaviz PA-C [address] [place] [address] [address] [place] [address] Physician Pipeline Systems Operator Dermatology 04/28/21 Tavia Wyatt MD [address] [place] [address] [address] [place] [address] Dermatology 07/14/21 Erica Farrell APRN TRAVEL REGISTERED NURSE NICU [address] [facility] [address] [place] [address] Nurse Practitioner Cardiovascular Disease 09/09/21 Rich Barrett MD [address] [facility] 9A [place] [address] Physician Ophthalmology 01/21/22 Neil Ketn MD 500 [place], [place] [address]655 MD Dermatology 02/24/22 Diana Desir, [facility] [address] [place], [place] [address] Assigned MTM Pharmacist 04/07/22 Livan Sharif MD [address] [place], [place] [address] Cardiovascular Disease 05/14/22 Catherine Cm MD [address] [place], [place] 7928[address] Cardiovascular Disease 07/21/22 Valery Veronica, PA-C [address] [place], [place] 745[address] Physician Pipeline Systems Operator Dermatology 07/21/22 Catherine Cm MD [address] [place] 5[address] Assigned Heart and Vascular Provider 07/24/22 11/05/22 Brea Quinn APRN TRAVEL REGISTERED NURSE NICU [address] [place], [place] 446245 Nurse Practitioner Dermatology 09/21/22 Brea Quinn APRN TRAVEL REGISTERED NURSE NICU [address] [place] [address] Assigned Surgical Provider 10/09/22 05/01/24 [place] [address] [place] [address] Assigned Musculoskeletal Provider 10/09/22 05/01/24 Livan Sharif MD [address] [facility] [address] [place] [address] Assigned Heart and Vascular Provider 11/06/22 11/12/22 Catherine Cm MD [address] [place] [address] Assigned Heart and Vascular Provider 11/13/22 05/27/23 JuanSydnie malik, RN Personal Advocate & Liaison (PAL) Family Medicine 03/28/23 07/31/23 Alfonso Renteria MD [address] [facility] 200 [place] [address] Assigned Neuroscience Provider 04/02/23 Cheng Todd PA-C [address] [place] [address] Assigned PCP 04/30/23 07/15/23 Radha Lomeli APRN TRAVEL REGISTERED NURSE NICU [address] [place] [address] Assigned Heart and Vascular Provider 05/28/23 Jelena David OD [address] [place] [address] Ophthalmology 06/15/23 Pao Joseph, RN Personal Advocate & Liaison (PAL) Nurse 08/01/23 11/07/23 Esha Grimm PA-C [address] [place] [phone] Assigned PCP 07/16/23 Valery Veronica PA-C [address] [place] [address] 702925 Physician Pipeline Systems Operator Dermatology 09/19/23 Rey Tay MD [address] [place] [address] 561515 MD Gastroenterology 09/20/23 Rocky Zepeda DO [address] [place] [address] 505085 Physician Gastroenterology 09/20/23 Philip Dumont MD [address] [place] [address] 851165 Physician Ophthalmology 09/22/23 Meredith Carrera PA-C [address] [place] [address] 089605 Assigned Gastroenterology Provider 11/01/23 Neil Kent MD [address] [address] Dermatology 11/02/23 [place] [address] [place] [address] Neurological Surgery 12/26/23 Audrey Waite PA-C 500 [place] [address] Physician Pipeline Systems Operator Dermatology 02/28/24 Valery Veronica PA-C [address] [place] [address] Physician Pipeline Systems Operator Dermatology 04/10/24 Herminia Hatch MD [address] [place] [address] [id number] Assigned Rheumatology Provider 07/02/24 documented as of this encounter
--- OUTSIDE RECORDS SUMMARY | 2024-08-28 19:09 | XMS_ITS | Encounter Summary ---
Author Organization [place] Address [address] [place] [address] Care Team Providers Care Diesel Roller Operator Name Role Phone Lita Oseguera Unavailable Unavailable Marija Edgar APRN CANCER GENETICS ASSISTANT Primary Care Provider + Marija Edgar APRN CANCER GENETICS ASSISTANT Unavailable [phone] Keisha Dotson MD Unavailable [phone] Diana Desir [facility] Unavailable Rain Galaviz PA-C Unavailable Tavia Wyatt MD Unavailable Erica Farrell APRN CANCER GENETICS ASSISTANT Unavailable Rich Barrett MD Unavailable [phone] Neil Kent MD Unavailable Diana Desir [facility] Unavailable Jelena David OD Unavailable Livan Sharif MD Unavailable Catherine Cm MD Unavailable + Valery Veronica PA-C Unavailable Catherine mC MD Unavailable + Johnny Murillo MD Unavailable [phone] Brea Quinn ENTERPRISE RECORDS ANALYST CANCER GENETICS ASSISTANT Unavailable [phone] Brea Quinn ENTERPRISE RECORDS ANALYST CANCER GENETICS ASSISTANT Unavailable [phone] Jose Francisco Johnson MD Unavailable Livan Sharif MD Unavailable Catherine Cm MD Unavailable + Sydnie Martinez RN Unavailable Unavailable Alfonso Renteria MD Unavailable Esha Grimm PA-C Primary Care Provider Cheng Todd PA-C Unavailable [phone] Radha Lomeli ENTERPRISE RECORDS ANALYST CANCER GENETICS ASSISTANT Unavailable Jelena David OD Unavailable Pao Joseph RN Unavailable Unavailable Esha Grimm PA-C Unavailable [phone] Valery Veronica PA-C Unavailable Rey Tay MD Unavailable Rocky Zepeda DO Unavailable Philip Dumont MD Unavailable Meredith Carrera PA-C Unavailable Neil Kent MD Unavailable Juan Pablo Emmanuel MD Unavailable Audrey Waite PA-C Unavailable aVlery Veronica PA-C Unavailable Herminia Hatch MD Unavailable Encounter Details Date Type Department Care Team (Late st Contact Info) Description 10/06/2022 [facility] Medical Advice [address] [phone] Brea Quinn, ENTERPRISE RECORDS ANALYST CANCER GENETICS ASSISTANT [address] [facility] [place] [address] Social History Tobacco Use Types Packs/Day Years [...] How often do you attend confucianist or cheondoism serv ices? Never 09/22/2021 Do [...] points; Administer PHQ-9 if positive 1 [facility] [...] in a alf (including now)? No 09/22/2021 Miller Depression Scale Answer Date Recorded Miller Depression Score 5 01/14/2021 Last EPDS Self Harm Result Not on file 01/14 Education Answer Date Recorded What is the highest level of school you have completed or the highest degree you have received? 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 Gender Identity Female 03/02/2021 5:45 PM [...] CDT Office Visit [facility] Neurology [address], [address] [place] [address] [place] [address] [place], [place] [phone] Johnny Penn MD [address] [place] [address] documented as of this encounter Visit Diagnoses [...] Depression Total Score: 5 08/27/19 1:14 PM HOUSEHOLD REFRIGERATOR MECHANIC documented as of this encounter Care Teams Diesel Roller Operator Relationship Specialty Start Date End Date Marija Edgar APRN CANCER GENETICS ASSISTANT PCP - General Nurse Practitioner 04/30/20 04/14/23 Esha Grimm PA-C [address] [place] [address] PCP - General Family Medicine 05/04/23 Lita Oseguera Personal Advocate & Liaison (PAL) 02/28/20 03/27/23 Marija Edgar APRN CANCER GENETICS ASSISTANT Assigned PCP 06/08/20 04/29/23 Keisha Dotson MD [address] [place], [place] [address] Assigned Neuroscience Provider 06/04/20 04/01/23 Diana Desir, [facility] [address] [place] [address] Pharmacist Pharmacist 04/17/21 Rain Galaviz PA-C [address] [place] [address] [address] [place] [address] Physician Economic Development Manager Dermatology 04/28/21 Tavia Wyatt MD [address] [place] [address] [place] [address] Dermatology 07/14/21 Erica Farrell APRN CANCER GENETICS ASSISTANT [address] [facility] [address] [facility]00 [place] [address] Nurse Practitioner Cardiovascular Disease 09/09/21 Rich Barrett MD 516 [facility] 9A [place] [address] Physician Ophthalmology 01/21/22 Neil Kent MD 500 [place] [address] MD Dermatology 02/24/22 Diana Desir, [facility] [address] [place] [address] Assigned MTM Pharmacist 04/07/22 [place] [address] [place] [address] [place] [address] Assigned Surgical Provider 05/08/22 10/08/22 Livan Sharif MD [address], [place] [address] [place] [address] Cardiovascular Disease 05/14/22 Catherine Cm MD [address] [place] [address] [place] [address] Cardiovascular Disease 07/21/22 Valery Veronica, PA-C 909 [place] [address] Physician Economic Development Manager Dermatology 07/21/22 Catherine Cm MD [address] [place] [facility] [place] [address] Assigned Heart and Vascular Provider 07/24/22 11/05/22 Johnny Murillo MD [facility] [place] [address] Assigned Musculoskeletal Provider 08/14/22 10/08/22 Brea Quinn APRN CANCER GENETICS ASSISTANT 500 [place] [address] Nurse Practitioner Dermatology 09/21/22 Brea Quinn APRN CANCER GENETICS ASSISTANT 6401 [place] [address] Assigned Surgical Provider 10/09/22 05/01/24 [place] [address] [facility] 300 [place] [address] Assigned Musculoskeletal Provider 10/09/22 05/01/24 Livan Sharif MD [address] [facility] [place] , [facility] [address] [place] [address] Assigned Heart and Vascular Provider 11/06/22 11/12/22 Catherine Cm MD 6[address] [facility] [address] [place] [address] Assigned Heart and Vascular Provider 11/13/22 05/27/23 Sydnie Martinez RN Personal Advocate & Liaison (PAL) Family Medicine 03/28/23 07/31/23 Alfonso Renteria MD 5775 [facility] 200 [place] [address] Assigned Neuroscience Provider 04/02/23 Cheng Todd PA-C [address] [place] [address] Assigned PCP 04/30/23 07/15/23 Radha Lomeli APRN CANCER GENETICS ASSISTANT 6405 [facility] [address] [place] [address] Assigned Heart and Vascular Provider 05/28/23 Jelena David OD [address] [place] [address] MD Ophthalmology 06/15/23 Pao Joseph, VJ Personal Advocate & Liaison (PAL) Nurse 08/01/23 11/07/23 Esha Grimm PA-C [address] [place] [address] Assigned PCP 07/16/23 Valery Veronica PA-C [address] [place] [address]405 Physician Economic Development Manager Dermatology 09/19/23 Rey Tay MD [address] [place] [address] 711465 Gastroenterology 09/20/23 Rocky Zepeda DO [address] [place] [address] 799275 Physician Gastroenterology 09/20/23 Philip Dumont MD [address] [place] [address] 795035 Physician Ophthalmology 09/22/23 Meredith Carrera PA-C [address]09 [place] [address] Assigned Gastroenterology Provider 11/01/23 Neil Kent MD [address] 628140 Dermatology 11/02/23 [place] [address] [id number] Neurological Surgery 12/26/23 Audrey Waite PA-C [address] [place] [address] Physician Economic Development Manager Dermatology 02/28/24 Valery Veronica PA-C 4[address]48 [address] [address] Physician Economic Development Manager Dermatology 04/10/24 Herminia Hatch MD [facility]5 [place], [place] 24[address] Assigned Rheumatology Provider 07/02/24 documented as of this encounter
--- OUTSIDE RECORDS SUMMARY | 2024-08-28 19:09 | XMS_ITS | Encounter Summary ---
Author Organization [facility] Address [address] [place] [address] Care Team Providers Care Risk Control Officer Name Role Phone Lita Oseguera Unavailable Unavailable Marija Edgar LYFT DRIVER COO Primary Care Provider + Chanelle Mccann LYFT DRIVER CNM Unavailab le Marija Edgar APRN COO Unavailable [phone] Mynor Broussard MD Unavailable [phone] Keisha Dotson MD Unavailable Galo Burrell MD Unavailable Unavailable Diana Desir [facility] Unavailable Rain Galaviz PA-C Unavailable Summer Lara MD Unavailable [phone] Summer Lara MD Unavailable [phone] Summer Lara MD Unavailable Tavia Wyatt MD Unavailable Johnny Murillo MD Unavailable Erica Farrell LYFT DRIVER COO Unavailable Teresita Bean [facility] Unavailable [phone] Tavia Wyatt MD Unavailable DesirDiana [facility] Unavailable [phone] Rich Barrett MD Unavailable [phone] Neil Kent MD Unavailable Roney StoryM Unavailable [phone] Erica Farrell APRN COO Unavailable + Diana Desir [facility] Unavailable [phone] Jelena David OD Unavailable Galo Burrell MD Unavailable Unavailable Livan Sharif MD Unavailable + Livan Shraif MD Unavailable + Catherine Cm MD Unavailable + Valery VeronicaC Unavailable [phone] Catherine Cm MD Unavailable + Johnny Murillo MD Unavailable [phone] Brea Quinn LYFT DRIVER COO Unavailable [phone] Brea Quinn LYFT DRIVER COO Unavailable [phone] Jose Francisco Johnson MD Unavailable Livan Sharif MD Unavailable + Catherine Cm MD Unavailable + Sydnie Martinez RN Unavailable Unavailable Alfonso Renteria MD Unavailable [phone] Esha GrimmC Primary Care Provider Cheng Todd PA-C Unavailable [phone] Radha Lomeli APRN COO Unavailable [phone] Jelena David OD Unavailable Jake, Pao RN Unavailable Unavailable Alfa, Esha M PA-C Unavailable [phone] Valery VeronicaC Unavailable [phone] Rey Tay MD Unavailable Duane Rockyanne [place] Unavailable Philip Dumont MD Unavailable Meredith Carrera PA-C Unavailable Neil Kent MD Unavailable Juan Pablo Emmanuel MD Unavailable Audrey Waite PA-C Unavailable Valery Veronica PA-C Unavailable Herminia Hatch MD Unavailable Encounter Details Date Type Department Care Team (Late st Contact Info) Description 04/17/2021 [facility] [address] [address] [place] [id number] [place] [address] Social History Tobacco Use Types Packs/Day Years [...] do you attend [facility] or [facility] services? More than 4 times per year [...] Answer Date Recorded PHQ-2 Score 0 04/02/2021 [facility] [...] a group home (including now)? No 08/11/2020 [place] Depression Scale Answer Date Recorded [place] Depression Score 5 01/14/2021 Last EPDS Self Harm Result Not on file 01/14 Education Answer Date Recorded What is the highest level of school you have completed or the highest degree you have received? 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 Gender Identity Female 03/02/2021 5:45 PM [...] AM CDT Office Visit [facility] - [address], [address] [place] [address] [place] [address] [place] [address] Johnny Penn MD [address] [place] [id number] documented as of this encounter Visit Diagnoses Not on filedocumented in this encounter Additional Health Concerns Infection Onset Date Last Indicated Resolved Time Rule Out COVID-19 05/11/2021 05/11/2021 05/13/2021 10:18 AM CDT Rule Out COVID-19 07/13/2021 07/13/2021 07/14/2021 3:04 PM COSMETOLOGIST APPRENTICE Rule Out COVID-19 07/18/2021 07/18/2021 07/20/2021 1:56 PM COSMETOLOGIST APPRENTICE COVID-19 07/18/2021 07/18/2021 08/08/2021 11:3 9 PM COSMETOLOGIST APPRENTICE Rule Out COVID-19 12/18/2021 12/18/2021 12/19/2021 11:34 AM CDT Rule Out COVID-19 02/24/2022 02/24/2022 02/25/2022 1:08 PM CDT Rule Out COVID-19 04/26/2022 04/26/2022 04/26/2022 6:47 AM CDT Rule Out COVID-19 05/17/2022 05/17/2022 05/17/2022 10:20 PM COSMETOLOGIST APPRENTICE Rule Out COVID-19 06/09/2022 06/09/2022 06/09/2022 9:35 AM COSMETOLOGIST APPRENTICE COVID-19 06/09/2022 06/09/2022 06/30/2022 11:4 1 PM COSMETOLOGIST APPRENTICE Rule Out COVID-19 11/10/2022 11/10/2022 11/11/2022 12:17 PM CDT Rule Out COVID-19 03/07/2023 03/07/2023 03/07/2023 1:20 PM CDT Rule Out COVID-19 12/26/2023 12/26/2023 12/26/2023 9:50 AM CDT Rule Out COVID-19 04/09/2024 04/09/2024 04/10/2024 6:48 PM CDT Assessment Noted Time PHQ-9 Depression Total Score: 2 04/02/20 10:19 AM CDT documented as of this encounter Care Teams Risk Control Officer Relationship Specialty Start Date End Date Marija Edgar APRN COO PCP - General Nurse Practitioner 04/30/20 04/14/23 Esha Grimm PA-C [address] [place] [address] PCP - General Family Medicine 05/04/23 Lita Oseguera Personal Advocate & Liaison (PAL) 02/28/20 03/27/23 [place] [address] [place] [address] 200 [place], [place] 868657 Assigned OBGYN Provider 05/02/2005/09 Marija Edgar APRN COO Assigned PCP 06/08/20 04/29/23 Mynor Broussard MD 6363 [facility] 500 [place], [place] 208185 Assigned Surgical Provider 06/01/20 11/28/21 Keisha Dotson MD 909 [place], [place] 827915 Assigned Neuroscience Provider 06/04/20 04/01/23 Galo Burrell MD Assigned Heart and Vascular Provider 10/05/20 04/02/22 [facility] 3033 [place] [address] Pharmacist Pharmacist 04/17/21 Rain Galaviz PA-C [address] [place] [address] [place] [address] Physician Porcelain Enamel Repairer Dermatology 04/28/21 Summer Lara MD [address] [place] [address] Assigned OBGYN Provider 05/10/2105/23 Summer Lara MD [address] [facility] [place] [address] Assigned OBGYN Provider 05/31/21 Summer Lara MD [address] [place] [address] [place] [address] Assigned OBGYN Provider 05/24/2105/30 Tavia Wyatt MD [address] [place] [address] [address] [place], [place] 765174 Dermatology 07/14/21 Johnny Murillo MD [address] [place] [address] Assigned Musculoskeletal Provider 08/30/21 03/17/22 Erica Farrell APRN COO 6405 [facility] [address] [place] [address] Nurse Practitioner Cardiovascular Disease 09/09/21 Teresita Bean [facility] [address] [place] [address] Pharmacist Pharmacist 09/24/21 09/29/21 Tavia Wyatt MD [address] [place] [address] Assigned Surgical Provider 11/29/21 05/07/22 [facility] 3033 [place] [address] Assigned MTM Pharmacist 01/02/22 Rich Barrett MD [address] 977[address] Physician Ophthalmology 01/21/22 Neil Kent MD 500 [place], [place] 6[address]25 Dermatology 02/24/22 Roney Story DPM [address] [facility] [address] [place] [address] Assigned Musculoskeletal Provider 03/20/22 08/13/22 Erica Farrell APRN COO 1700 [place] [address] Assigned Heart and Vascular Provider 04/03/22 04/16/22 Diana Desir, [facility] 30[address] [place] [address] Assigned MTM Pharmacist 04/07/22 Jelena David OD [address] [place] [address] Assigned Surgical Provider 05/08/22 10/08/22 Galo Burrell MD Assigned Heart and Vascular Provider 04/17/22 06/11/22 Livan Sharif MD [address], [facility] [address] [place], [place] 237[address] Cardiovascular Disease 05/14/22 Livan Sharif MD [address], [facility] [address] [place], [place] 8166[address] Assigned Heart and Vascular Provider 06/12/22 07/23/22 Catherine Cm MD [address] [facility]00 [place], [place] 154575 Cardiovascular Disease 07/21/22 Valery Veronica, PA-C [address] [place] [address] Physician Porcelain Enamel Repairer Dermatology 07/21/22 Catherine Cm MD [address] [facility]00 [place] [address] Assigned Heart and Vascular Provider 07/24/22 11/05/22 Johnny Murillo MD [facility] [address] Assigned Musculoskeletal Provider 08/14/22 10/08/22 Brea Quinn APRN COO [address] [place] [address] Nurse Practitioner Dermatology 09/21/22 rBea Quinn APRN COO 6401 [facility] [place] [address] Assigned Surgical Provider 10/09/22 05/01/24 [place] [address] [address] [facility] 300 [place] [address] Assigned Musculoskeletal Provider 10/09/22 05/01/24 Livan Sharif MD [address] [facility] [address] [place] [address] Assigned Heart and Vascular Provider 11/06/22 11/12/22 Catherine Cm MD [address] [facility]00 [place] 540535 Assigned Heart and Vascular Provider 11/13/22 05/27/23 Sydnie Martinez, VJ Personal Advocate & Liaison (PAL) Family Medicine 03/28/23 07/31/23 Alfonso Renteria MD 5775 [facility] 200 [place] [address] Assigned Neuroscience Provider 04/02/23 Cheng Todd PA-C [address] [place] [address] Assigned PCP 04/30/23 07/15/23 Radha Lomeli APRN COO [address] [place] [address] Assigned Heart and Vascular Provider 05/28/23 Jelena David OD [address] [place] [address] MD Ophthalmology 06/15/23 Pao Joseph, RN Personal Advocate & Liaison (PAL) Nurse 08/01/23 11/07/23 Esha Grimm PA-C [address] [place] [phone] Assigned PCP 07/16/23 Valery Veronica PA-C [address] [place] [address] 824295 Physician Porcelain Enamel Repairer Dermatology 09/19/23 Rey Tay MD [address] [place] [address] 587015 Gastroenterology 09/20/23 Rocky Zepeda DO [address] [place] [address] 316695 Physician Gastroenterology 09/20/23 Philip Dumont MD [address] [place] [address] 074035 Physician Ophthalmology 09/22/23 Meredith Carrera PA-C [address] [place] [address] 444835 Assigned Gastroenterology Provider 11/01/23 Neil Kent MD [address] [place] [address] Dermatology 11/02/23 [place] [address] [address] Neurological Surgery 12/26/23 Audrey Waite PA-C 500 [place] [address] Physician Porcelain Enamel Repairer Dermatology 02/28/24 Valery Veronica PA-C [address] [place] [address] Physician Porcelain Enamel Repairer Dermatology 04/10/24 Herminia Hatch MD [facility]5 [place], [place] 17429125 Assigned Rheumatology Provider 07/02/24 documented as of this encounter
--- OUTSIDE RECORDS SUMMARY | 2024-08-28 19:09 | XMS_ITS | Encounter Summary ---
Author Organization [facility] Address [address] [place] [address] Care Team Providers Care Matrix Worker Name Role Phone Lita Oseguera Unavailable Unavailable Marija Edgar DRYWALL INSTALLER CHINESE HERBALIST Primary Care Provider + Chanelle Mccann DRYWALL INSTALLER CNM Unavailab le Marija Edgar APRN CHINESE HERBALIST Unavailable [phone] Mynor Broussard MD Unavailable [phone] Keisha Dotson MD Unavailable Galo Burrell MD Unavailable Unavailable Diana Desir [facility] Unavailable Rain Galaviz PA-C Unavailable Summer Lara MD Unavailable [phone] Summer Lara MD Unavailable [phone] Summer Lara MD Unavailable [phone] Tavia Wyatt MD Unavailable Johnny Murillo MD Unavailable [phone] Erica Farrell DRYWALL INSTALLER CHINESE HERBALIST Unavailable Teresita Bean [facility] Unavailable aTvia Wyatt MD Unavailable DesirDiana [facility] Unavailable [phone] Rich Barrett MD Unavailable [phone] Neil Kent MD Unavailable Roney StoryM Unavailable [phone] Erica Farrell APRN CHINESE HERBALIST Unavailable + Diana Desir [facility] Unavailable [phone] Jelena David OD Unavailable Galo Burrell MD Unavailable Unavailable Livan Sharif MD Unavailable + Livan Sharif MD Unavailable + Catherine Cm MD Unavailable + Valery VeronicaC Unavailable [phone] Catherine Cm MD Unavailable + Johnny Murillo MD Unavailable [phone] Brea Quinn DRYWALL INSTALLER CHINESE HERBALIST Unavailable [phone] Brea Quinn DRYWALL INSTALLER CHINESE HERBALIST Unavailable [phone] Jose Francisco Johnson MD Unavailable Livan Sharif MD Unavailable + Catherine Cm MD Unavailable + Sydnie Martinez RN Unavailable Unavailable Alfonso Renteria MD Unavailable [phone] Esha GrimmC Primary Care Provider Cheng Todd PA-C Unavailable [phone] Radha Lomeli APRN CHINESE HERBALIST Unavailable [phone] Jelena David OD Unavailable Jake, Pao RN Unavailable Unavailable Alfa, Esha M PA-C Unavailable [phone] Valery Veronica PA-C Unavailable Rey Tay MD Unavailable Duane Rockyanne [place] Unavailable Philip Dumont MD Unavailable [phone] Meredith Carrera PA-C Unavailable [phone] Neil Kent MD Unavailable Juan Pablo Emmanuel MD Unavailable [phone] Audrey Waite PA-C Unavailable [phone] Valery Veronica PA-C Unavailable [phone] Herminia Hatch MD Unavailable Encounter Details Date Type Department Care Team (Late st Contact Info) Description 05/05/2021 [facility] [address] [address] Lauren Gan RN Social History [...] a nursing home (including now)? No 08/11/2020 [place] Depression Scale Answer Date Recorded [place] Depression Score 5 01/14/2021 Last EPDS Self Harm Result Not on file 01/14 Education Answer Date Recorded What is the highest level of school you have completed or the highest degree you have received? 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 SPEAKER MOUNTER Gender Identity Female 03/02/2021 5:45 PM CDT [...] AM CDT Office Visit [facility] [address], [address] [place] [address] [place] [address] [address] [place] [address] IsamarJohnny mead MD [address] [place] [address] documented as of this encounter Visit Diagnoses Not on filedocumented in this encounter Additional Health Concerns Infection Onset Date Last Indicated Resolved Time Rule Out COVID-19 05/11/2021 05/11/2021 05/13/2021 10:18 AM CDT Rule Out COVID-19 07/13/2021 07/13/2021 07/14/2021 3:04 PM SPEAKER MOUNTER Rule Out COVID-19 07/18/2021 07/18/2021 07/20/2021 1:56 PM SPEAKER MOUNTER COVID-19 07/18/2021 07/18/2021 08/08/2021 11:3 9 PM SPEAKER MOUNTER Rule Out COVID-19 12/18/2021 12/18/2021 12/19/2021 11:34 AM CDT Rule Out COVID-19 02/24/2022 02/24/2022 02/25/2022 1:08 PM CDT Rule Out COVID-19 04/26/2022 04/26/2022 04/26/2022 6:47 AM CDT Rule Out COVID-19 05/17/2022 05/17/2022 05/17/2022 10:20 PM SPEAKER MOUNTER Rule Out COVID-19 06/09/2022 06/09/2022 06/09/2022 9:35 AM SPEAKER MOUNTER COVID-19 06/09/2022 06/09/2022 06/30/2022 11:4 1 PM SPEAKER MOUNTER Rule Out COVID-19 11/10/2022 11/10/2022 11/11/2022 12:17 PM CDT Rule Out COVID-19 03/07/2023 03/07/2023 03/07/2023 1:20 PM CDT Rule Out COVID-19 12/26/2023 12/26/2023 12/26/2023 9:50 AM CDT Rule Out COVID-19 04/09/2024 04/09/2024 04/10/2024 6:48 PM CDT Assessment Noted Time PHQ-9 Depression Total Score: 2 04/02/20 10:19 AM CDT documented as of this encounter Care Teams Matrix Worker Relationship Specialty Start Date End Date Marija Edgar APRN CHINESE HERBALIST PCP - General Nurse Practitioner 04/30/20 04/14/23 Esha Grimm PA-C [address] [place] [phone] PCP - General Family Medicine 05/04/23 Lita Oseguera Personal Advocate & Liaison (PAL) 02/28/20 03/27/23 Chanelle Mccann APRN CNM [address] [facility] 200 [place] [address] Assigned OBGYN Provider 05/02/2005/09 Marija Edgar APRN CHINESE HERBALIST Assigned PCP 06/08/20 04/29/23 Mynor Broussard MD 6363 [facility] 500 [place] [address] Assigned Surgical Provider 06/01/20 11/28/21 Keisha Dotson MD 909 [place] [address] Assigned Neuroscience Provider 06/04/20 04/01/23 Galo Burrell MD Assigned Heart and Vascular Provider 10/05/20 04/02/22 Diana Desir, [facility] 3033 [place], [place] [address] Pharmacist Pharmacist 04/17/21 Rain Galaviz PA-C [address] [place] [address] [place] [address] Physician Lamination Builder Dermatology 04/28/21 Summer Lara MD [address] [place] [address] Assigned OBGYN Provider 05/10/2105/23 Summer Lara MD [address] [place] [address] 555024 Assigned OBGYN Provider 05/31/21 Summer Lara MD [address] [place] [address] Assigned OBGYN Provider 05/24/2105/30 Tavia Wyatt MD [address] [place] [address] Dermatology 07/14/21 Johnny Murillo MD [facility] [facility] [address] [place] [address] Assigned Musculoskeletal Provider 08/30/21 03/17/22 Erica Farrell APRN CHINESE HERBALIST 6405 [facility] [address] [place] [address] Nurse Practitioner Cardiovascular Disease 09/09/21 Teresita Bean, [facility] [address] [id number] Pharmacist Pharmacist 09/24/21 09/29/21 Tavia Wyatt MD [address] [place] [address] Assigned Surgical Provider 11/29/21 05/07/22 Diana Desir [facility] 3033 [place] [address] Assigned MTM Pharmacist 01/02/22 Rich Barrett MD [address] [address] Physician Ophthalmology 01/21/22 Neil Kent MD 500 [place] [address] Dermatology 02/24/22 Roney [place] D[place] [address] [facility] 300 [place] [address] Assigned Musculoskeletal Provider 03/20/22 08/13/22 Erica Farrell APRN CHINESE HERBALIST 1700 [place] [address] Assigned Heart and Vascular Provider 04/03/22 04/16/22 Diana Desir [facility] [place] [address] Assigned MTM Pharmacist 04/07/22 Jelena David OD [address] [facility] [place] [address] Assigned Surgical Provider 05/08/22 10/08/22 Galo Burrell MD Assigned Heart and Vascular Provider 04/17/22 06/11/22 Livan Sharif MD [address], [place] [address] [place] [address] Cardiovascular Disease 05/14/22 Livan Sharif MD [address], [place] [address] [place] [address] Assigned Heart and Vascular Provider 06/12/22 07/23/22 Catherine Cm MD [address] [place] [address] [place] [address] Cardiovascular Disease 07/21/22 Valery Veronica, PAUcheC [address] [place] [address] 007525 Physician Lamination Builder Dermatology 07/21/22 Catherine Cm MD [address] [place] [address] [place], [place] [address] Assigned Heart and Vascular Provider 07/24/22 11/05/22 Johnny Murillo MD [facility] 575024 Assigned Musculoskeletal Provider 08/14/22 10/08/22 Brea Quinn APRN CHINESE HERBALIST [address] [place] [address] 185245 Nurse Practitioner Dermatology 09/21/22 Brea Quinn, DRYWALL INSTALLER CHINESE HERBALIST [address] [place] [address] Assigned Surgical Provider 10/09/22 05/01/24 [place] [address] [address] [address] Assigned Musculoskeletal Provider 10/09/22 05/01/24 Livan Sharif MD [address] [place] [address] [place] [address] Assigned Heart and Vascular Provider 11/06/22 11/12/22 Catherine Cm MD [address] [facility] [place] [address] Assigned Heart and Vascular Provider 11/13/22 05/27/23 Sydnie Martinez RN Personal Advocate & Liaison (PAL) Family Medicine 03/28/23 07/31/23 Alfonso Renteria MD 5775 [facility] 200 [place] [address] Assigned Neuroscience Provider 04/02/23 Cheng Todd PA-C [address] [place] [address] Assigned PCP 04/30/23 07/15/23 Radha Lomeli, ARLENE CHINESE HERBALIST [address] [place] 915625 Assigned Heart and Vascular Provider 05/28/23 Jelena David OD [address] [facility] [place] [address] MD Ophthalmology 06/15/23 Pao Joseph, RN Personal Advocate & Liaison (PAL) Nurse 08/01/23 11/07/23 Esha Grimm PA-C [address] [place] [phone] Assigned PCP 07/16/23 Valery Veronica PA-C [address] [place] [address] 118735 Physician Lamination Builder Dermatology 09/19/23 Rey Tay MD [address] [place] [address] 965885 MD Gastroenterology 09/20/23 Rocky Zepeda DO [address] [place] [address] 930635 Physician Gastroenterology 09/20/23 Philip Dumont MD [address] [place] [address] 418565 Physician Ophthalmology 09/22/23 Meredith Carrera PA-C [address] [place] [address] 939695 Assigned Gastroenterology Provider 11/01/23 Neil Kent MD [address] [address] Dermatology 11/02/23 [place] [address] [place] [address] Neurological Surgery 12/26/23 Audrey Waite PA-C 500 [place] [address] Physician Lamination Builder Dermatology 02/28/24 Valery Veronica PA-C [address] [place] [address] Physician Lamination Builder Dermatology 04/10/24 Herminia Hatch MD [address] [place] [address] Assigned Rheumatology Provider 07/02/24 documented as of this encounter
--- OUTSIDE RECORDS SUMMARY | 2024-08-28 19:09 | XMS_ITS | Encounter Summary ---
Author Organization [facility] Address [address] [place] [address] Care Team Providers Care Collar Sewer Name Role Phone Lita Oseguera Unavailable Unavailable Marija Edgar APRN FORMING MACHINE TENDER Primary Care Provider + Marija Edgar APRN FORMING MACHINE TENDER Unavailable [phone] Keisha Dotson MD Unavailable Diana Desir [facility] Unavailable Rain Galaviz PA-C Unavailable Taiva Wyatt MD Unavailable Erica Farrell APRN FORMING MACHINE TENDER Unavailable Rich Barrett MD Unavailable [phone] Neil Kent MD Unavailable Diana Desir [facility] Unavailable Jelena David OD Unavailable Livan Sharif MD Unavailable Catherine Cm MD Unavailable + Valery Veronica PA-C Unavailable [phone] Catherine Cm MD Unavailable + Johnny Murillo MD Unavailable [phone] Brea Quinn ASSISTANT PASTRY CHEF FORMING MACHINE TENDER Unavailable [phone] Brea Quinn ASSISTANT PASTRY CHEF FORMING MACHINE TENDER Unavailable [phone] Jose Francisco Johnson MD Unavailable Livan Sharif MD Unavailable Catherine Cm MD Unavailable + Sydnie Martinez RN Unavailable Unavailable Alfonso Renteria MD Unavailable Esha Grimm PA-C Primary Care Provider Cheng Todd PA-C Unavailable [phone] Radha Lomeli ASSISTANT PASTRY CHEF FORMING MACHINE TENDER Unavailable Jelena David OD Unavailable Pao Joseph RN Unavailable Unavailable Esha Grimm PA-C Unavailable [phone] Valery Veronica PA-C Unavailable Rey Tay MD Unavailable Rocky Zepeda DO Unavailable Philip Dumont MD Unavailable Meredith Carrera PA-C Unavailable Neil Kent MD Unavailable Juan Pablo Emmanuel MD Unavailable Audrey Waite PA-C Unavailable Valery Veronica PA-C Unavailable [phone] Herminia Hatch MD Unavailable Reason for Visit * Reason Onset Date Comments Call Back 09/21/2022 Change of provid er request Encounter Details Date Type Department Care Team (Late st Contact Info) Description 09/21/2022 Telephone [facility] [address], [address] [place] [address] Keisha Dotson MD [address] [place] [address] Call Back (Change of provider request) Social [...] How often do you attend confucianism or synagogue serv ices? Never 09/22/2021 Do [...] Answer Date Recorded PHQ-2 Score 2 08/27/2022 [facility] [...] in a long-term (including now)? No 09/22/2021 [place] Depression Scale Answer Date Recorded [place] Depression Score 5 01/14/2021 Last EPDS Self Harm Result Not on file 01/14 Education Answer Date Recorded What is the highest level of school you have completed or the highest degree you have received? 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 CREATIVE SERVICES DESIGNER Gender Identity Female 03/02/2021 5:45 PM [...] Aleyda Guan - 09/21/2022 10:47 AM CDT [facility] Call Center Phone Message May a detailed message be left on voicemail: yes Reason for Call: Other: Change of provider request, Pt would like to be seen with another provider. Please call Pt back at [phone] to scheduled or advise. Action Taken: Message routed to: [facility] Neu[facility] Travel Screening: Not Applicable documented in this encounter Plan of Treatment Upcoming Encounters Date Type Department Care Team (Late st Contact Info) Description 10/23/2024 9:30 AM CDT Office Visit [facility] [place] [address] [place] [address], [address] [place] [address] [place] [address] [address] [place] [address] Johnny Penn MD [address] [facility] [address] [place] [address] documented [...] Depression Total Score: 5 08/27/19 1:14 PM CREATIVE SERVICES DESIGNER documented as of this encounter Care Teams Collar Sewer Relationship Specialty Start Date End Date Marija Edgar APRN FORMING MACHINE TENDER PCP - General Nurse Practitioner 04/30/20 04/14/23 Esha Grimm PA-C [address] [place] [address] PCP - General Family Medicine 05/04/23 Lita Oseguera Personal Advocate & Liaison (PAL) 02/28/20 03/27/23 Marija Edgar APRN FORMING MACHINE TENDER Assigned PCP 06/08/20 04/29/23 Keisha Dotson MD [address] [place], [place] 0[address] Assigned Neuroscience Provider 06/04/20 04/01/23 Diana Desir [facility] [address] [place] [address] Pharmacist Pharmacist 04/17/21 Rain Galaviz PA-C [address] [place] [address] [address] [place] [address] Physician Warehouse Forklift Operator Dermatology 04/28/21 Tavia Wyatt MD [address] [place] [address] [address] [place] [address] Dermatology 07/14/21 Erica Farrell APRN FORMING MACHINE TENDER [address] [place] [address] Nurse Practitioner Cardiovascular Disease 09/09/21 Rich Barrett MD [address] 431425 Physician Ophthalmology 01/21/22 Neil Kent MD 500 [place], [place] [address] Dermatology 02/24/22 Diana Desir, [facility] [address] [place] [address] Assigned MTM Pharmacist 04/07/22 Jelena David OD [address] [facility] [place] [address] Assigned Surgical Provider 05/08/22 10/08/22 Livan Sharif MD [address] [place] [address] Cardiovascular Disease 05/14/22 Catherine Cm MD [address] [place] [address] Cardiovascular Disease 07/21/22 Valery Veronica, PAUcheC [address]09 [place] [address] Physician Warehouse Forklift Operator Dermatology 07/21/22 Catherine Cm MD [address] [facility] [address] [place] 268455 Assigned Heart and Vascular Provider 07/24/22 11/05/22 Johnny Murillo MD [address] [place] [address] [id number] Assigned Musculoskeletal Provider 08/14/22 10/08/22 Brea Quinn APRN FORMING MACHINE TENDER [address] [place] [address] 970835 Nurse Practitioner Dermatology 09/21/22 Brea Quinn APRN FORMING MACHINE TENDER [address] [place] [address] [place] [address] Assigned Surgical Provider 10/09/22 05/01/24 [place] [address] [place] [address] [place] [address] Assigned Musculoskeletal Provider 10/09/22 05/01/24 Livan Sharif MD [address], [facility] [address] [place] 879705 Assigned Heart and Vascular Provider 11/06/22 11/12/22 Catherine Cm MD [address] [place] 8[address]65 Assigned Heart and Vascular Provider 11/13/22 05/27/23 Syndie Martinez RN Personal Advocate & Liaison (PAL) Family Medicine 03/28/23 07/31/23 Alfonso Renteria MD [address] [facility] [address] [place], [place] 77[address] Assigned Neuroscience Provider 04/02/23 Cheng Todd PA-C [address] [place] [address] [id number] Assigned PCP 04/30/23 07/15/23 Radha Lomeli, ARLENE FORMING MACHINE TENDER [address] [place] 117[address] Assigned Heart and Vascular Provider 05/28/23 Jelena David OD [address] [facility] [place] [address] Ophthalmology 06/15/23 Pao Joseph, VJ Personal Advocate & Liaison (PAL) Nurse 08/01/23 11/07/23 Esha Grimm PA-C [address] [place] [phone] Assigned PCP 07/16/23 Valery Veronica PA-C [address] [place], [place] 470865 Physician Warehouse Forklift Operator Dermatology 09/19/23 Rey Tay MD [address] [place] [address] MD Gastroenterology 09/20/23 Rocky Zepeda DO 500 [place] [address] Physician Gastroenterology 09/20/23 Philip Dumont MD [address] [place], [place] 6[address] Physician Ophthalmology 09/22/23 Meredith Carrera PA-C [address] [place] [address] Assigned Gastroenterology Provider 11/01/23 Neil Kent MD [address] [place] [address] Dermatology 11/02/23 [place] [address] [address] [facility] [place] [address] Neurological Surgery 12/26/23 Audrey Waite PA-C 500 [place] [address] Physician Warehouse Forklift Operator Dermatology 02/28/24 Valery Veronica PA-C 141254 [address], [place] [address] Physician Warehouse Forklift Operator Dermatology 04/10/24 Herminia Hatch MD [facility]5 [place], [place] [address] Assigned Rheumatology Provider 07/02/24 documented as of this encounter
--- OUTSIDE RECORDS SUMMARY | 2024-08-28 19:09 | XMS_ITS | Encounter Summary ---
Author Organization [facility] Address [address] [place] [address] Care Team Providers Care Painter Decorator Name Role Phone Lita Oseguera Unavailable Unavailable Marija Edgar YARN SIZER TESTER ARMATURE OR FIELDS Primary Care Provider + Chanelle Mccann YARN SIZER CNM Unavailab le Marija Edgar APRN TESTER ARMATURE OR FIELDS Unavailable [phone] Mynor Broussard MD Unavailable [phone] Keisha Dotson MD Unavailable Galo Burrell MD Unavailable Unavailable Diana Desir [facility] Unavailable Rain Galaviz PA-C Unavailable Summer Lara MD Unavailable [phone] Summer Lara MD Unavailable [phone] Summer Lara MD Unavailable [phone] Tavia Wyatt MD Unavailable Johnny Murillo MD Unavailable Erica Farrell YARN SIZER TESTER ARMATURE OR FIELDS Unavailable Teresita Bean [facility] Unavailable Tavia Wyatt MD Unavailable DesirDiana [facility] Unavailable [phone] Rich Barrett MD Unavailable [phone] Neil Kent MD Unavailable Roney StoryM Unavailable [phone] Erica Farrell APRN TESTER ARMATURE OR FIELDS Unavailable + Diana Desir [facility] Unavailable [phone] Jelena David OD Unavailable Galo Burrell MD Unavailable Unavailable Livan Sharif MD Unavailable + Livan Sharif MD Unavailable + Catherine Cm MD Unavailable + Valery VeronicaC Unavailable [phone] Catherine Cm MD Unavailable + Johnny Murillo MD Unavailable [phone] Brea Quinn YARN SIZER TESTER ARMATURE OR FIELDS Unavailable [phone] Brea Quinn YARN SIZER TESTER ARMATURE OR FIELDS Unavailable [phone] Jose Francisco Johnson MD Unavailable Livan Sharif MD Unavailable + Catherine Cm MD Unavailable + Sydnie Martinez RN Unavailable Unavailable Alfonso Renteria MD Unavailable [phone] Esha GrimmC Primary Care Provider Cheng Todd PA-C Unavailable [phone] Radha Lomeli APRN TESTER ARMATURE OR FIELDS Unavailable [phone] Jelena David OD Unavailable Jake, Pao RN Unavailable Unavailable Alfa, Esha M PA-C Unavailable [phone] Valery Veronica PA-C Unavailable [phone] Rey Tay MD Unavailable Duane Rockyanne STEVENS Unavailable Philip Dumont MD Unavailable [phone] Meredith Carrera PA-C Unavailable [phone] Neil Kent MD Unavailable Juan Pablo Emmanuel MD Unavailable [phone] Audrey Waite PA-C Unavailable [phone] Valery Veronica PA-C Unavailable [phone] Herminia Hatch MD Unavailable Encounter Details Date Type Department Care Team (Late st Contact Info) Description 04/28/2021 [facility] Medical Advice [address] [address] Lauren Gan RN Social History [...] in a long-term (including now)? No 08/11/2020 [place] Depression Scale Answer Date Recorded [place] Depression Score 5 01/14/2021 Last EPDS Self Harm Result Not on file 01/14 Education Answer Date Recorded What is the highest level of school you have completed or the highest degree you have received? 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 PRODUCT OPERATIONS ASSOCIATE Gender Identity Female 03/02/2021 5:45 PM [...] AM CDT Office Visit [facility] Neurology [address], [address] [place] [address] [place] [address] [address] [place] [address] IsamarJohnny farnsworth MD [address] [place] [address] documented as of this encounter Visit Diagnoses Not on filedocumented in this encounter Additional Health Concerns Infection Onset Date Last Indicated Resolved Time Rule Out COVID-19 05/11/2021 05/11/2021 05/13/2021 10:18 AM CDT Rule Out COVID-19 07/13/2021 07/13/2021 07/14/2021 3:04 PM PRODUCT OPERATIONS ASSOCIATE Rule Out COVID-19 07/18/2021 07/18/2021 07/20/2021 1:56 PM PRODUCT OPERATIONS ASSOCIATE COVID-19 07/18/2021 07/18/2021 08/08/2021 11:3 9 PM PRODUCT OPERATIONS ASSOCIATE Rule Out COVID-19 12/18/2021 12/18/2021 12/19/2021 11:34 AM CDT Rule Out COVID-19 02/24/2022 02/24/2022 02/25/2022 1:08 PM CDT Rule Out COVID-19 04/26/2022 04/26/2022 04/26/2022 6:47 AM CDT Rule Out COVID-19 05/17/2022 05/17/2022 05/17/2022 10:20 PM PRODUCT OPERATIONS ASSOCIATE Rule Out COVID-19 06/09/2022 06/09/2022 06/09/2022 9:35 AM PRODUCT OPERATIONS ASSOCIATE COVID-19 06/09/2022 06/09/2022 06/30/2022 11:4 1 PM PRODUCT OPERATIONS ASSOCIATE Rule Out COVID-19 11/10/2022 11/10/2022 11/11/2022 12:17 PM CDT Rule Out COVID-19 03/07/2023 03/07/2023 03/07/2023 1:20 PM CDT Rule Out COVID-19 12/26/2023 12/26/2023 12/26/2023 9:50 AM CDT Rule Out COVID-19 04/09/2024 04/09/2024 04/10/2024 6:48 PM CDT Assessment Noted Time PHQ-9 Depression Total Score: 2 04/02/20 10:19 AM CDT documented as of this encounter Care Teams Painter Decorator Relationship Specialty Start Date End Date Marija Edgar APRN TESTER ARMATURE OR FIELDS PCP - General Nurse Practitioner 04/30/20 04/14/23 Esha Grimm PA-C [address] [place] [phone] PCP - General Family Medicine 05/04/23 Lita Oseguera Personal Advocate & Liaison (PAL) 02/28/20 03/27/23 Chanelle Mccann APRN CNAdam [address] [facility] 200 [place] [address] Assigned OBGYN Provider 05/02/2005/09 Marija Edgar APRN TESTER ARMATURE OR FIELDS Assigned PCP 06/08/20 04/29/23 Mynor Broussard MD [address] [facility] 500 [place] [address] Assigned Surgical Provider 06/01/20 11/28/21 Keisha Dotson MD 909 [place] [address] Assigned Neuroscience Provider 06/04/20 04/01/23 Galo Burrell MD Assigned Heart and Vascular Provider 10/05/20 04/02/22 Diana Desir, [facility] [address] [place], [place] 976796 Pharmacist Pharmacist 04/17/21 Rain Galaviz PA-C [address] [place] [address] [place] [address] Physician Blow Down Operator Dermatology 04/28/21 Summer Lara MD [address] [place] [address] 569444 Assigned OBGYN Provider 05/10/2105/23 Summer Lara MD [address] [place] [address] 724144 Assigned OBGYN Provider 05/31/21 2 Summer Lara MD [address] [place] [address] Assigned OBGYN Provider 05/24/2105/30 Tavia Wyatt MD [address] [place] [address] 284624 Dermatology 07/14/21 Johnny Murillo MD [facility] [facility] [address] [place] [address] Assigned Musculoskeletal Provider 08/30/21 03/17/22 Erica Farrell APRN TESTER ARMATURE OR FIELDS [address] [facility] [address] [place] [address] Nurse Practitioner Cardiovascular Disease 09/09/21 Teresita Bean, [facility] [address] [id number] Pharmacist Pharmacist 09/24/21 09/29/21 Tavia Wyatt MD [address] [place] [address] Assigned Surgical Provider 11/29/21 05/07/22 Diana Desir [facility] [address] [place] [address] Assigned MTM Pharmacist 01/02/22 Rich Barrett MD [address] [address] Physician Ophthalmology 01/21/22 Neil Kent MD 500 [place] [address] Dermatology 02/24/22 Roney Story DPM [address] [facility] [address] [place] [address] Assigned Musculoskeletal Provider 03/20/22 08/13/22 Erica Farrell APRN TESTER ARMATURE OR FIELDS 1700 [place] [address] Assigned Heart and Vascular Provider 04/03/22 04/16/22 Diana Desir [facility] [place] [address] Assigned MTM Pharmacist 04/07/22 Jelena David OD [address] [facility] [place] [address] Assigned Surgical Provider 05/08/22 10/08/22 Galo Burrell MD Assigned Heart and Vascular Provider 04/17/22 06/11/22 Livan Sharif MD [address], [address] [place] [address] Cardiovascular Disease 05/14/22 Livan Sharif MD [address], [address] [place] [address] Assigned Heart and Vascular Provider 06/12/22 07/23/22 Catherine Cm MD [address] [place], [place] [address] Cardiovascular Disease 07/21/22 Valery Veronica, PAUcheC [address] [place] [address] [phone] Physician Blow Down Operator Dermatology 07/21/22 Catherine Cm MD [address] [place], [place] [address] Assigned Heart and Vascular Provider 07/24/22 11/05/22 Johnny Murillo MD [facility] [address] 359[address] Assigned Musculoskeletal Provider 08/14/22 10/08/22 Brea Quinn APRN TESTER ARMATURE OR FIELDS [address] [place] [address] 961165 Nurse Practitioner Dermatology 09/21/22 Brea Quinn, YARN SIZER TESTER ARMATURE OR FIELDS [address] [place] [address] Assigned Surgical Provider 10/09/22 05/01/24 [place] [address] [address] Assigned Musculoskeletal Provider 10/09/22 05/01/24 Livan Sharif MD [address] [facility] [address] [place] [address] Assigned Heart and Vascular Provider 11/06/22 11/12/22 Catherine Cm MD [address] [facility] [place] [address] Assigned Heart and Vascular Provider 11/13/22 05/27/23 Sydnie Martinez, RN Personal Advocate & Liaison (PAL) Family Medicine 03/28/23 07/31/23 Alfonso Renteria MD 5775 [facility] 200 [place] [address] Assigned Neuroscience Provider 04/02/23 Cheng Todd PA-C [address] [place] [address] Assigned PCP 04/30/23 07/15/23 Radha Lomeli APRN TESTER ARMATURE OR FIELDS [address] [place] [address] Assigned Heart and Vascular Provider 05/28/23 Jelena David OD [address] [facility] [place] [address] MD Ophthalmology 06/15/23 Pao Joseph, RN Personal Advocate & Liaison (PAL) Nurse 08/01/23 11/07/23 Esha Grimm PA-C [address] [place] [phone] Assigned PCP 07/16/23 Valery Veronica PA-C [address] [place] [address] 087195 Physician Blow Down Operator Dermatology 09/19/23 Rey Tay MD [address] [place] [address] 839725 MD Gastroenterology 09/20/23 Rocky Zepeda DO [address] [place] [address] 851645 Physician Gastroenterology 09/20/23 Philip Dumont MD [address] [place] [address] 270275 Physician Ophthalmology 09/22/23 Meredith Carrera PA-C [address] [place] [address] 409335 Assigned Gastroenterology Provider 11/01/23 Neil Kent MD [address] [address] Dermatology 11/02/23 [place] [address] [place] [address] Neurological Surgery 12/26/23 Audrey Waite PA-C 500 [place] [address] Physician Blow Down Operator Dermatology 02/28/24 Valery Veronica PA-C [address] [place] [address] Physician Blow Down Operator Dermatology 04/10/24 Herminia Hatch MD [address] [place] [address] Assigned Rheumatology Provider 07/02/24 documented as of this encounter
--- OUTSIDE RECORDS SUMMARY | 2024-08-28 19:09 | XMS_ITS | Encounter Summary ---
Author Organization [facility] Address [address] [place] [address] Care Team Providers Care Assistant Program Manager Name Role Phone Lita Oseguera Unavailable Unavailable Marija Edgar APRN PHILATELIC CONSULTANT Primary Care Provider + Marija Edgar APRN PHILATELIC CONSULTANT Unavailable [phone] Keisha Doston MD Unavailable Diana Desir [facility] Unavailable Rain Galaviz PA-C Unavailable Tavia Wyatt MD Unavailable [phone] Erica Farrell APRN PHILATELIC CONSULTANT Unavailable Rich Barrett MD Unavailable [phone] Neil Kent MD Unavailable Diana Desir [facility] Unavailable [phone] Livan Sharif MD Unavailable Catherine Cm MD Unavailable + Valery Veronica PA-C Unavailable [phone] Catherine Cm MD Unavailable + Brea Quinn BOLT CUTTER PHILATELIC CONSULTANT Unavailable [phone] Brea Quinn APRN PHILATELIC CONSULTANT Unavailable Jose Francisco Johnson MD Unavailable Livan Sharif MD Unavailable Catherine Cm MD Unavailable + Sydnie Martinez RN Unavailable Unavailable Alfonso Renteria MD Unavailable [phone] Esha Grimm PA-C Primary Care Provider Cheng Todd PA-C Unavailable Radha Lomeli BOLT CUTTER PHILATELIC CONSULTANT Unavailable Jelena David OD Unavailable Pao Joseph RN Unavailable Unavailable Esha Grimm PA-C Unavailable [phone] Valery Veronica PA-C Unavailable Rey Tay MD Unavailable Rocky Zepeda DO Unavailable Philip Dumont MD Unavailable Meredith Carrera PA-C Unavailable [phone] Neil Kent MD Unavailable Juan Pablo Emmanuel MD Unavailable Audrey Waite PA-C Unavailable JeremíasValery damon PA-C Unavailable Herminia Hatch MD Unavailable Encounter Details Date Type Department Care Team (Late st Contact Info) Description 10/22/2022 [facility] Sports Medicine [facility] [address] [facility] [address] [place] [address] [place] [address] [place] [address] Social History Tobacco Use Types [...] Answer Date Recorded PHQ-2 Score 1 10/11/2022 [facility] - Occupational Stress Questionnaire Answer Date [...] in a intermediate (including now)? No 09/22/2021 [place] Depression Scale [...] PM CDT Legal Sex Female 4:13 AM NETWORKS COMPUTER CONSULTANT Gender Identity Female 03/02/2021 5:45 PM [...] has follow-up appointment 10/27/22 to discuss Kristina aEsley ATC documented in this encounter Plan of Treatment Upcoming Encounters Date Type Department Care Team (Late st Contact Info) Description 10/23/2024 9:30 AM CDT Office Visit [facility] Neurology Clinics [address], [address] [place] [address] [place] [address] [address] [place] 180367 Johnny Penn MD [address] [facility] [place] [id number] documented as of this encounter Visit Diagnoses [...] as of this encounter Care Teams Assistant Program Manager Relationship Specialty Start Date End Date Marija Edgar APRN PHILATELIC CONSULTANT PCP - General Nurse Practitioner 04/30/20 04/14/23 Esha Grimm PA-C [address] [place] [address] PCP - General Family Medicine 05/04/23 Lita Oseguera Personal Advocate & Liaison (PAL) 02/28/20 03/27/23 Marija Edgar APRN PHILATELIC CONSULTANT Assigned PCP 06/08/20 04/29/23 Keisha Dotson MD 909 [place] [address] Assigned Neuroscience Provider 06/04/20 04/01/23 Diana Desir, [facility] 3033 [place] [address] Pharmacist Pharmacist 04/17/21 Rain Galaviz PA-C [address] [place] [address] [place] [address] Physician Door To Door Lead Generation Dermatology 04/28/21 Tavia Wyatt MD [address] [place] [address] [address] [place] [address] Dermatology 07/14/21 Erica Farrell APRN PHILATELIC CONSULTANT [address] [place] [address] Nurse Practitioner Cardiovascular Disease 09/09/21 Rich Barrett MD [address] [place] [address], [address] 107[address] Physician Ophthalmology 01/21/22 Neil Kent MD [address] [place] [address] [phone] Dermatology 02/24/22 [facility] [address] [place] [address] Assigned [place] Pharmacist 04/07/22 Livan Sharif MD [address], [facility] [address] [place] [address] Cardiovascular Disease 05/14/22 Catherine Cm MD [address] [place] [address] Cardiovascular Disease 07/21/22 Valery Veronica, PA-C [address] [place] [address] Physician Door To Door Lead Generation Dermatology 07/21/22 Catherine Cm MD [address] [place] [address] Assigned Heart and Vascular Provider 07/24/22 11/05/22 Brea Quinn APRN PHILATELIC CONSULTANT [address] [place] [address] Nurse Practitioner Dermatology 09/21/22 Brea Quinn APRN PHILATELIC CONSULTANT [address] [facility] [place] [address] Assigned Surgical Provider 10/09/22 05/01/24 [place] [address] [address] [place] [address] Assigned Musculoskeletal Provider 10/09/22 05/01/24 Livan Sharif MD [address], [facility] [address] [place] [address] Assigned Heart and Vascular Provider 11/06/22 11/12/22 Catherine Cm MD [address] [facility] [address] [place], [place] 354835 Assigned Heart and Vascular Provider 11/13/22 05/27/23 Sydnie Martinez RN Personal Advocate & Liaison (PAL) Family Medicine 03/28/23 07/31/23 Alfonso Renteria MD 5775 [facility] 200 [place] [address] Assigned Neuroscience Provider 04/02/23 Cheng Todd PA-C [address] [place] [address] [phone] Assigned PCP 04/30/23 07/15/23 Radha Lomeli APRN CNP [address] [facility] [address] [place] [address] Assigned Heart and Vascular Provider 05/28/23 Jelena David OD [address] [facility] [place] [address] MD Ophthalmology 06/15/23 Pao Joseph, VJ Personal Advocate & Liaison (PAL) Nurse 08/01/23 11/07/23 Esha Grimm PA-C [address] [place] [phone] Assigned PCP 07/16/23 Vaelry Veronica PA-C [address] [place] [address] 347805 Physician Door To Door Lead Generation Dermatology 09/19/23 Rey Tay MD [address] [place] [address] 512015 Gastroenterology 09/20/23 Rocky Zepeda DO [address] [place] [address] 017255 Physician Gastroenterology 09/20/23 Philip Dumont MD [address] [place] [address] 871815 Physician Ophthalmology 09/22/23 Meredith Carrera PA-C [address] [place] [address] Assigned Gastroenterology Provider 11/01/23 Neil Kent MD [address] [address] Dermatology 11/02/23 [place] [address] [address] [address] Neurological Surgery 12/26/23 Audrey Waite PA-C 500 [place] [address] Physician Door To Door Lead Generation Dermatology 02/28/24 Valery Veronica PA-C 85[address]43 [address] [place] [address] Physician Door To Door Lead Generation Dermatology 04/10/24 Herminia Hatch MD [facility]5 [place], [place] 8288[address] Assigned Rheumatology Provider 07/02/24 documented as of this encounter
--- OUTSIDE RECORDS SUMMARY | 2024-08-28 19:10 | XMS_ITS | Encounter Summary ---
Author Organization [facility] Address [address] [place] [address] Care Team Providers Care Academic Affairs Manager Name Role Phone Lita Oseguera Unavailable Unavailable Marija Edgar APRN WEAVING TEACHER Primary Care Provider + Marija Edgar APRN WEAVING TEACHER Unavailable Keisha Dotson MD Unavailable Diana Desir [facility] Unavailable [phone] Rain Galaviz PA-C Unavailable Tavia Wyatt MD Unavailable Erica Farrell APRN WEAVING TEACHER Unavailable Rich Barrett MD Unavailable Neil Kent MD Unavailable Roney Story DPM Unavailable Diana Desir [facility] Unavailable Jelena David OD Unavailable Galo Burrell MD Unavailable Unavailable Livan Sharif MD Unavailable Livan Sharif MD Unavailable Catherine Cm MD Unavailable + Valery Veronica PA-C Unavailable Catherine Cm MD Unavailable + Johnny Murillo MD Unavailable [phone] Brea Quinn RHEOSTAT ASSEMBLER WEAVING TEACHER Unavailable [phone] Brea Quinn RHEOSTAT ASSEMBLER WEAVING TEACHER Unavailable [phone] Jose Francisco Johnson MD Unavailable Livan Sharif MD Unavailable Catherine Cm MD Unavailable + Sydnie Martinez RN Unavailable Unavailable Alfonso Renteria MD Unavailable Esha Grimm PA-C Primary Care Provider Cheng Todd PA-C Unavailable [phone] Radha Lomeli RHEOSTAT ASSEMBLER WEAVING TEACHER Unavailable Frankie Jelena Garcia OD Unavailable [phone] Pao Joseph RN Unavailable Unavailable Esha Grimm PA-C Unavailable [phone] JeremíasValery damon PA-C Unavailable Rey Tay MD Unavailable Rocky Zepeda DO Unavailable Philip Dumont MD Unavailable [phone] Meredith Carrera PA-C Unavailable Neil Kent MD Unavailable Juan Pablo Emmanuel MD Unavailable Audrey Waite PA-C Unavailable Valery Veronica PA-C Unavailable Herminia Hatch MD Unavailable Encounter Details Date Type Department Care Team (Late st Contact Info) Description 05/11/2022 [facility] Medical Advice [address] [address] Diana Desir, [facility] [address] [place] [address] Social History Tobacco Use Types Packs/Day Years [...] How often do you attend uatsdin or latter-day serv ices? Never 09/22/2021 Do [...] in a half-way (including now)? No 09/22/2021 [place] Depression Scale Answer Date Recorded [place] Depression Score 5 01/14/2021 Last EPDS Self Harm Result Not on file 01/14 Education Answer Date Recorded What is the highest level of school you have completed or the highest degree you have received? 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 FLUE LINING DIPPER Gender Identity Female 03/02/2021 5:45 PM CDT [...] Office Visit [facility] Neurology [address], [address] [place] [address] [place] [address] [address] [place] 959847 Johnny Penn MD [address] [place] 849135 documented as of this encounter Visit Diagnoses Not on filedocumented in this encounter Additional Health Concerns Infection Onset Date Last Indicated Resolved Time Rule Out COVID-19 05/17/2022 05/17/2022 05/17/2022 10:20 PM FLUE LINING DIPPER Rule Out COVID-19 06/09/2022 06/09/2022 06/09/2022 9:35 AM FLUE LINING DIPPER COVID-19 06/09/2022 06/09/2022 06/30/2022 11:4 1 PM FLUE LINING DIPPER Rule Out COVID-19 11/10/2022 11/10/2022 11/11/2022 12:17 PM CDT Rule Out COVID-19 03/07/2023 03/07/2023 03/07/2023 1:20 PM CDT Rule Out COVID-19 12/26/2023 12/26/2023 12/26/2023 9:50 AM CDT Rule Out COVID-19 04/09/2024 04/09/2024 04/10/2024 6:48 PM CDT Assessment Noted Time PHQ-9 Depression Total Score: 3 05/13/20 8:49 PM CDT documented as of this encounter Care Teams Academic Affairs Manager Relationship Specialty Start Date End Date Marija Edgar APRN WEAVING TEACHER PCP - General Nurse Practitioner 04/30/20 04/14/23 Esha Grimm PA-C [address] [place] [phone] PCP - General Family Medicine 05/04/23 Lita Oseguera Personal Advocate & Liaison (PAL) 02/28/20 03/27/23 Marija Edgar APRN WEAVING TEACHER Assigned PCP 06/08/20 04/29/23 Keisha Dotson MD 909 [place], [place] 808345 Assigned Neuroscience Provider 06/04/20 04/01/23 Diana Desir [facility] [address] [place], [place] 740506 Pharmacist Pharmacist 04/17/21 Rain Galaviz PA-C [address] [place] [address] [place] [address] Physician Guide Plant Dermatology 04/28/21 Tavia Wyatt MD [address] [place] [address] [address] [facility] [place] [address] Dermatology 07/14/21 Erica Farrell APRN WEAVING TEACHER [address] [place] [address] Nurse Practitioner Cardiovascular Disease 09/09/21 Rich Barrett MD [address] 125565 Physician Ophthalmology 01/21/22 Neil Kent MD 500 [place], [place] 348905 Dermatology 02/24/[address] [facility] 300 [place] [address] Assigned Musculoskeletal Provider 03/20/22 08/13/22 Diana Desir, [facility] [address] [place] [address] Assigned MTM Pharmacist 04/07/22 Jelena David OD [address] [facility] [place] [address] Assigned Surgical Provider 05/08/22 10/08/22 Galo Burrell MD Assigned Heart and Vascular Provider 04/17/22 06/11/22 Livan Sharif MD [address] [place] [address] Cardiovascular Disease 05/14/22 Livan Sharif MD [address] [place] [address] Assigned Heart and Vascular Provider 06/12/22 07/23/22 Catherine Cm MD [address] [place] 018365 Cardiovascular Disease 07/21/22 Valery Veronica, PAUcheC [address] [place] [address] 585305 Physician Guide Plant Dermatology 07/21/22 Catherine Cm MD [address] [place] 987425 Assigned Heart and Vascular Provider 07/24/22 11/05/22 Johnny Murillo MD [address] 504414 Assigned Musculoskeletal Provider 08/14/22 10/08/22 Brea Quinn APRN WEAVING TEACHER [address] [place] [address] 817665 Nurse Practitioner Dermatology 09/21/22 Brea Quinn APRN WEAVING TEACHER [address] [place] [address] [place] 310222 Assigned Surgical Provider 10/09/22 05/01/24 [place] [address] [address] [place] [address] Assigned Musculoskeletal Provider 10/09/22 05/01/24 Livan Sharif MD [address], [facility] [address] [place] [address] Assigned Heart and Vascular Provider 11/06/22 11/12/22 Catherine Cm MD [address] [facility] [address] [place] [address] Assigned Heart and Vascular Provider 11/13/22 05/27/23 Sydnie Martinez RN Personal Advocate & Liaison (PAL) Family Medicine 03/28/23 07/31/23 Alfonso Renteria MD 5775 [facility] 200 [place], [place] 018326 Assigned Neuroscience Provider 04/02/23 Cheng Todd PA-C [address] [place] [address] [id number] Assigned PCP 04/30/23 07/15/23 Radha Lomeli APRN WEAVING TEACHER [address] [place] [address] Assigned Heart and Vascular Provider 05/28/23 Jelena David OD [address] [place] [address] Ophthalmology 06/15/23 Pao Joseph, VJ Personal Advocate & Liaison (PAL) Nurse 08/01/23 11/07/23 Esha Grimm PA-C [address] [place] [address] Assigned PCP 07/16/23 Valery Veronica PA-C [address] [place] [address] 418125 Physician Guide Plant Dermatology 09/19/23 Rey Tay MD [address] [place] [address] 452775 MD Gastroenterology 09/20/23 Rocky Zepeda DO [address] [place] [address] 585045 Physician Gastroenterology 09/20/23 Philip Dumont MD [address] [place] [address] 824795 Physician Ophthalmology 09/22/23 Meredith Carrera PA-C [address] [place] [address] Assigned Gastroenterology Provider 11/01/23 Neil Kent MD [address] [place] [address] Dermatology 11/02/23 [place] [address] [place] [address] Neurological Surgery 12/26/23 Audrey Waite PA-C 500 [place] [address] Physician Guide Plant Dermatology 02/28/24 Valery Veronica PA-C [address] [place] [address] Physician Guide Plant Dermatology 04/10/24 Herminia Hatch MD [address] [place] [address] Assigned Rheumatology Provider 07/02/24 documented as of this encounter
--- OUTSIDE RECORDS SUMMARY | 2024-08-28 19:10 | XMS_ITS | Encounter Summary ---
Author Organization [place] Address [address] [place] [address] Care Team Providers Care Director Of Learning Name Role Phone Diana Desir [facility] Unavailable Rain Galaviz PA-C Unavailable Tavia Wyatt MD Unavailable Erica Farrell APRN MEDICAL BILLING ASSISTANT Unavailable Rich Barrett MD Unavailable [phone] Niel Kent MD Unavailable Diana Desir [facility] Unavailable [phone] Livan Sharif MD Unavailable Catherine Cm MD Unavailable + Valery Veronica PA-C Unavailable Brea Quinn REALTIME CAPTIONER MEDICAL BILLING ASSISTANT Unavailable Brea Quinn REALTIME CAPTIONER MEDICAL BILLING ASSISTANT Unavailable [phone] Jose Francisco Johnson MD Unavailable Alfonso Renteria MD Unavailable [phone] Esha Grimm PA-C Primary Care Provider Radha Lomeli APRN MEDICAL BILLING ASSISTANT Unavailable Jelena David OD Unavailable Pao Joseph RN Unavailable Unavailable Esha Grimm PA-C Unavailable [phone] Valery Veronica PA-C Unavailable [phone] Rey Tay MD Unavailable Rocky Zepeda DO Unavailable Philip Dumont MD Unavailable [phone] Meredith Carrera PA-C Unavailable [phone] Neil Kent MD Unavailable Juan Pablo Emmanuel MD Unavailable [phone] Audrey Waite PA-C Unavailable [phone] Valery Veronica PA-C Unavailable Herminia Hatch MD Unavailable Encounter Details Date Type Department Care Team (Late st Contact Info) Description 09/20/2023 [facility] Medical Advice [facility] Gastroenterology Clinic [address] [address] Jeffery Vieira, RN Social History [...] Answer Date Recorded PHQ-2 Score 0 06/20/2023 [facility] [place] of Occupat ional Health - Occupational [...] exercise at this level? 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 Gender Identity Female 03/02/2021 5:45 PM CDT Sexual Orientation Straight 02/28/2020 12 :51 AM CDT documented as of this encounter Plan of Treatment Upcoming Encounters Date Type Department Care Team (Late st Contact Info) Description 10/23/2024 9:30 AM CDT Office Visit [facility] Neurology [address], [address] [place] [address] [place] [address] [address] [place] 022267 Johnny Penn MD [address] [place] [address] documented as of this encounter Visit Diagnoses Not on filedocumented in this encounter Additional Health Concerns Infection Onset Date Last Indicated Resolved Time Rule Out COVID-19 12/26/2023 12/26/2023 12/26/2023 9:50 AM CDT Rule Out COVID-19 04/09/2024 04/09/2024 04/10/2024 6:48 PM CDT Assessment Noted Time PHQ-9 Depression Total Score: 4 06/20/20 23 8:40 AM CUSTOMER SALES CONSULTANT documented as of this encounter Care Teams Director Of Learning Relationship Specialty Start Date End Date Esha Grimm PA-C [address] [place] [address] PCP - General Family Medicine 05/04/23 Diana Desir, [facility] [address] [place], [place] 123276 Pharmacist Pharmacist 04/17/21 Rain Galaviz PA-C [address] [place] [address] [address] [place] [address] Physician Client Service Professional Dermatology 04/28/21 Tavia Wyatt MD [address] [place] [address] DR [address] [place] [address] [id number] Dermatology 07/14/21 Erica Farrell APRN MEDICAL BILLING ASSISTANT [address] [facility] [address] [place], [place] 743935 Nurse Practitioner Cardiovascular Disease 09/09/21 Rich Barrett MD [address] 909205 Physician Ophthalmology 01/21/22 Neil Kent MD 500 [place], [place] 935565 Dermatology 02/24/22 Diana Desir, [facility] 3033 [place], [place] 966896 Assigned MTM Pharmacist 04/07/22 Livan Sharif MD [address], [facility] [address] [place], [place] 5187[address] Cardiovascular Disease 05/14/22 Catherine Cm MD [address] [facility] [address] [place], [place] 832555 Cardiovascular Disease 07/21/22 Valery Veronica, PA-C [address] [place] [address] 527875 Physician Client Service Professional Dermatology 07/21/22 Brea Quinn APRN MEDICAL BILLING ASSISTANT [address] [place], [place] 810185 Nurse Practitioner Dermatology 09/21/22 Brea Quinn APRN MEDICAL BILLING ASSISTANT [address] [place] [address] Assigned Surgical Provider 10/09/22 05/01/24 [place] [address] [facility] 300 [place], [place] 834067 Assigned Musculoskeletal Provider 10/09/22 05/01/24 Alfonso Renteria MD 5775 [facility] 200 [place], [place] 807806 Assigned Neuroscience Provider 04/02/23 Radha Lomeli APRN MEDICAL BILLING ASSISTANT [address] [place] [address] Assigned Heart and Vascular Provider 05/28/23 Jelena David OD [address] [place] [address] MD Ophthalmology 06/15/23 Pao Joseph, VJ Personal Advocate & Liaison (PAL) Nurse 08/01/23 11/07/23 Esha Grimm PA-C [address] [place] [phone] Assigned PCP 07/16/23 Valery Veronica PA-C [address] [place] [address] 661405 Physician Client Service Professional Dermatology 09/19/23 Rey Tay MD [address] [place] [address] 543545 Gastroenterology 09/20/23 Rocky Zepeda DO [address] [place] [address] 332415 Physician Gastroenterology 09/20/23 Philip Dumont MD [address] [place] [address] 207165 Physician Ophthalmology 09/22/23 Meredith Carrera PA-C [address] [place] [address] 315585 Assigned Gastroenterology Provider 11/01/23 Neil Kent MD [address] [address] Dermatology 11/02/23 [place] [address] 932757 Neurological Surgery 12/26/23 Audrey Waite PA-C 500 [place] [address] Physician Client Service Professional Dermatology 02/28/24 Valery Veronica PA-C 127810 [address], [place] [address] Physician Client Service Professional Dermatology 04/10/24 Herminia Hatch MD [facility] [place] [address] Assigned Rheumatology Provider 07/02/24 documented as of this encounter
--- OUTSIDE RECORDS SUMMARY | 2024-08-28 19:10 | XMS_ITS | Encounter Summary ---
Author Organization [facility] Address [address] [place] [address] Care Team Providers Care Breakdown Person Name Role Phone Lita Oseguera Unavailable Unavailable Marija Edgar APRN KETTLEMAN Primary Care Provider + Marija Edgar APRN KETTLEMAN Unavailable [phone] Keisha Dotson MD Unavailable Diana Desir [facility] Unavailable [phone] Rain Galaviz PA-C Unavailable [phone] Tavia Wyatt MD Unavailable Erica Farrell APRN KETTLEMAN Unavailable Rich Barrett MD Unavailable Neil Kent MD Unavailable Roney Story DPM Unavailable Diana Desir [facility] Unavailable Jelena David OD Unavailable Livan Sharif MD Unavailable Livan Sharif MD Unavailable Catherine Cm MD Unavailable + Valery Veronica PA-C Unavailable Catherine Cm MD Unavailable + Johnny Murillo MD Unavailable [phone] Brea Quinn W[facility]T SE[facility] KETTLEMAN Unavailable [phone] Bera Quinn W[facility]T SE[facility] KETTLEMAN Unavailable [phone] Jose Francisco Johnson MD Unavailable Livan Sharif MD Unavailable Catherine Cm MD Unavailable + Sydnie Martinez RN Unavailable Unavailable Alfonso Renteria MD Unavailable Esha Grimm PA-C Primary Care Provider Cheng Todd PA-C Unavailable [phone] Radha Lomeli [facility] SE[facility] KETTLEMAN Unavailable Jelena David OD Unavailable Pao Joseph RN Unavailable Unavailable Esha Grimm PA-C Unavailable [phone] Valery Veronica PA-C Unavailable [phone] Rey Tay MD Unavailable Rocky Zepeda DO Unavailable Philip Dumont MD Unavailable [phone] Meredith Carrera PA-C Unavailable Neil Kent MD Unavailable Juan Pablo Emmanuel MD Unavailable Audrey Waite PA-C Unavailable [phone] Valery Veronica PA-C Unavailable [phone] Herminia Hatch MD Unavailable Encounter Details Date Type Department Care Team (Late st Contact Info) Description 07/02/2022 MyC Medical Advice [address] [address] Diana Desir, [facility] [address] [place] [address] Social History Tobacco Use Types Packs/Day Years [...] How often do you attend yazdanism or hindu serv ices? Never 09/22/2021 Do [...] points; Administer PHQ-9 if positive 1 05/13/2022 [facility] [place] of Occupat ional Health - Occupational Stress [...] a nursing home (including now)? No 09/22/2021 Central Depression Scale Answer Date Recorded Central Depression Score 5 01/14/2021 Last EPDS Self Harm Result Not on file 01/14 Education Answer Date Recorded What is the highest level of school you have completed or the highest degree you have received? 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 No / Unsure 06/25/2022 8:44 AM SENIOR BOILER OPERATOR documented as of this encounter Plan of Treatment Upcoming Encounters Date Type Department Care Team (Late st Contact Info) Description 10/23/2024 9:30 AM CDT Office Visit [facility] Neurology Clinics [address], [address] [place] [address] [place] [address] [place] [address] Johnny Penn MD [address] [facility] [place] [id number] documented as of this encounter Visit Diagnoses [...] documented as of this encounter Care Teams Breakdown Person Relationship Specialty Start Date End Date Marija Edgar APRN KETTLEMAN PCP - General Nurse Practitioner 04/30/20 04/14/23 Esha Grimm PA-C [address] [place] [address] PCP - General Family Medicine 05/04/23 Lita Oseguera Personal Advocate & Liaison (PAL) 02/28/20 03/27/23 Marija Edgar APRN KETTLEMAN Assigned PCP 06/08/20 04/29/23 Keisha Dotson MD [address] [place] [address] Assigned Neuroscience Provider 06/04/20 04/01/23 Diana Desir, [facility] [address] [place] [address] Pharmacist Pharmacist 04/17/21 Rain Galaviz PA-C [address] [place] [address] [address] [place] [address] Physician Measurement Advisor Dermatology 04/28/21 Tavia Wyatt MD [address] [place] [address] [place] [address] Dermatology 07/14/21 Erica Farrell APRN KETTLEMAN [address] [place] [address] Nurse Practitioner Cardiovascular Disease 09/09/21 Rich Barrett MD 516 [facility] 9[address] [place], [place] 763395 Physician Ophthalmology 01/21/22 Neil Kent MD 500 [place], [place] 264675 Dermatology 02/24/22 Roney Story DPM [address] [email or web address] [facility] [address] [place], [place] 141727 Assigned Musculoskeletal Provider 03/20/22 08/13/22 Diana Desir, [facility] [address] [place], [place] [address] Assigned MTM Pharmacist 04/07/22 Jelena David OD 3[address] [facility] [place] [address] Assigned Surgical Provider 05/08/22 10/08/22 Livan Sharif MD [address] [place] [address] Cardiovascular Disease 05/14/22 Livan Sharif MD [address] [place] [address] Assigned Heart and Vascular Provider 06/12/22 07/23/22 Catherine Cm MD [address] [place] [address] Cardiovascular Disease 07/21/22 Valery Veronica PA-C [address] [place] [address] 386675 Physician Measurement Advisor Dermatology 07/21/22 Catherine Cm MD [address] [facility]00 [place] 253255 Assigned Heart and Vascular Provider 07/24/22 11/05/22 Johnny Murillo MD [facility] [address] 286174 Assigned Musculoskeletal Provider 08/14/22 10/08/22 Brea Quinn APRN KETTLEMAN [address] [place] [address] 060355 Nurse Practitioner Dermatology 09/21/22 Brea Quinn APRN KETTLEMAN [address] [place] [address] [place] 783392 Assigned Surgical Provider 10/09/22 05/01/24 [place] [address] [place] [address] [place] [address] Assigned Musculoskeletal Provider 10/09/22 05/01/24 Livan Sharif MD [address], [facility] [address] [place] 581135 Assigned Heart and Vascular Provider 11/06/22 11/12/22 Catherine Cm MD [address] [place] [address] Assigned Heart and Vascular Provider 11/13/22 05/27/23 Sydnie Martinez RN Personal Advocate & Liaison (PAL) Family Medicine 03/28/23 07/31/23 Alfonso Renteria MD 5775 [facility] 200 [place], [place] 370826 Assigned Neuroscience Provider 04/02/23 Cheng Todd PA-C [address] [place] [address] [id number] Assigned PCP 04/30/23 07/15/23 Radha Lomeli, ARLENE KETTLEMAN [address] [place] 697395 Assigned Heart and Vascular Provider 05/28/23 Jelena David OD [address] [facility] [place] [place] [address] Ophthalmology 06/15/23 Pao Joseph, VJ Personal Advocate & Liaison (PAL) Nurse 08/01/23 11/07/23 Esha Grimm PA-C [address] [place] [phone] Assigned PCP 07/16/23 Valery Veronica PA-C 909 [place], [place] 513[address] Physician Measurement Advisor Dermatology 09/19/23 Rey Tay MD [address] [place], [place] 941535 MD Gastroenterology 09/20/23 Rocky Zepeda DO 500 [place] [address] Physician Gastroenterology 09/20/23 Philip Dumont MD 516 [place], [place] 209555 Physician Ophthalmology 09/22/23 Meredith Carrera PA-C 9 [place], [place] 915565 Assigned Gastroenterology Provider 11/01/23 Neil Kent MD [address] [place] [address] 105870 Dermatology 11/02/23 [place] [address] [address] [facility] [address] [place], [place] 792597 Neurological Surgery 12/26/23 Audrey Waite PA-C 500 [place] [address] Physician Measurement Advisor Dermatology 02/28/24 Valery Veronica PA-C 268092 [address], [place] [address] Physician Measurement Advisor Dermatology 04/10/24 Herminia Hatch MD [facility]5 [place] [address] Assigned Rheumatology Provider 07/02/24 documented as of this encounter
--- OUTSIDE RECORDS SUMMARY | 2024-08-28 19:10 | XMS_ITS | Encounter Summary ---
Author Organization [facility] Address [address] [place] [address] Care Team Providers Care Cushion Worker Name Role Phone Diana Desir [facility] Unavailable Rain Galaviz PAUcheC Unavailable Tavia Wyatt MD Unavailable Erica Farrell WALL WORKER OUTBOARD MOTOR MECHANIC Unavailable Rich Barrett MD Unavailable [phone] Neil Kent MD Unavailable Kendrick Desirelle Stanislav [facility] Unavailable Livan Sharif MD Unavailable Catherine Cm MD Unavailable + Valery Veronica-C Unavailable Brea Quinn WALL WORKER OUTBOARD MOTOR MECHANIC Unavailable Alfonso Renteria MD Unavailable [phone] Esha GrimmC Primary Care Provider [phone] Radha Lomeli WALL WORKER OUTBOARD MOTOR MECHANIC Unavailable Jelena David OD Unavailable Esha Grimm PA-C Unavailable [phone] Valery VeronicaC Unavailable [phone] Rey Tay MD Unavailable Rocky Zepeda DO Unavailable Philip Dumont MD Unavailable [phone] Meredith CarreraC Unavailable [phone] Neil Kent MD Unavailable Juan Pablo Emmanuel MD Unavailable [phone] Audrey WaiteC Unavailable [phone] Valery VeronicaC Unavailable [phone] Herminia Hatch MD Unavailable Encounter Details Date [...] Answer Date Recorded PHQ-2 Score 1 02/07/2024 [facility] - Occupational Stress Questionnaire Answer [...] exercise at this level? 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 Gender Identity Female 03/02/2021 5:45 PM CDT Sexual Orientation Straight 02/28/2020 12 :51 AM CDT documented as of this encounter Plan of Treatment Upcoming Encounters Date Type Department Care Team (Late st Contact Info) Description 10/23/2024 9:30 AM CDT Office Visit [facility] Neurology [address], [address] [place] [address] [place] [address] [place] [address] Johnny Penn MD 6545 [facility] [place] [address] documented as of this encounter Visit Diagnoses Not on filedocumented in this encounter Additional Health Concerns Assessment Noted Time PHQ-9 Depression Total Score: 3 02/07/20 24 9:33 AM CDT documented as of this encounter Care Teams Cushion Worker Relationship Specialty Start Date End Date Esha Grimm PA-C [address] [place] [phone] PCP - General Family Medicine 05/04/23 Diana Desir, [facility] [address] [place] [address] Pharmacist Pharmacist 04/17/21 Rain Galaviz PA-C [address] [place] [address] [address] [place] [address] Physician Axminster Rug Setter Dermatology 04/28/21 Tavia Wyatt MD [address] [place] [address] [address] [place] [address] Dermatology 07/14/21 Erica Farrell APRN OUTBOARD MOTOR MECHANIC [address] [place] 134785 Nurse Practitioner Cardiovascular Disease 09/09/21 Rich Barrett MD 516 [facility] 9A [place], [place] 27[address] Physician Ophthalmology 01/21/22 Neil Kent MD 500 [place], [place] 187945 Dermatology 02/24/22 [facility] [address] [place] [address] Assigned MTM Pharmacist 04/07/22 Livan Sharif MD [address] [place] [address] Cardiovascular Disease 05/14/22 Catherine Cm MD [address] [place] [address] Cardiovascular Disease 07/21/22 Valery Veronica PA-C [address] [place] [address] 387555 Physician Axminster Rug Setter Dermatology 07/21/22 Brea Quinn APRN OUTBOARD MOTOR MECHANIC [address] [place] [address] 669595 Nurse Practitioner Dermatology 09/21/22 Alfonso Renteria MD 5775 [facility] 200 [place], [place] [address]886 Assigned Neuroscience Provider 04/02/23 Radha Lomeli APRN OUTBOARD MOTOR MECHANIC [address] [place] [address] Assigned Heart and Vascular Provider 05/28/23 Jelena David OD [address] [place] [address] [place] [address] Ophthalmology 06/15/23 Esha Grimm PA-C [address] [place] [address] Assigned PCP 07/16/23 Valery Veronica PA-C [address] [place] [address] 114795 Physician Axminster Rug Setter Dermatology 09/19/23 Rey Tay MD [address] [place] [address] Gastroenterology 09/20/23 Rocky Zepeda DO 500 [place] [address] Physician Gastroenterology 09/20/23 Philip Dumont MD 516 [place] [address] Physician Ophthalmology 09/22/23 Meredith Carrera PA-C 909 [place] [address] Assigned Gastroenterology Provider 11/01/23 Neil Kent MD [address] [address] MD Dermatology 11/02/23 [place] [address] 913037 Neurological Surgery 12/26/23 Audrey Waite PA-C 500 [place] [address] Physician Axminster Rug Setter Dermatology 02/28/24 Valery Veronica PA-C 800464 [address], [place] [address] Physician Axminster Rug Setter Dermatology 04/10/24 Herminia Hatch MD [facility]5 [place], [place] 47[address] Assigned Rheumatology Provider 07/02/24 documented as of this encounter
--- OUTSIDE RECORDS SUMMARY | 2024-08-28 19:10 | XMS_ITS | Encounter Summary ---
Author Organization [facility] Address [address] [place] [address] Care Team Providers Care Vice President Network Name Role Phone Lita Oseguera Unavailable Unavailable Marija Edgar APRN SECTION PLOTTER OPERATOR Primary Care Provider + Marija Edgar APRN SECTION PLOTTER OPERATOR Unavailable [phone] Keisha Dotson MD Unavailable Diana Desir [facility] Unavailable [phone] Rain Galaviz PA-C Unavailable Tavia Wyatt MD Unavailable Erica Farrell APRN SECTION PLOTTER OPERATOR Unavailable Rich Barrett MD Unavailable Neil Kent MD Unavailable Roney Story DPM Unavailable Diana Desir [facility] Unavailable [phone] Jelena David OD Unavailable Livan Sharif MD Unavailable Livan Sharif MD Unavailable Catherine Cm MD Unavailable + Valery Veronica PA-C Unavailable Catherine Cm MD Unavailable + Johnny Murillo MD Unavailable [phone] Brea Quinn PHYSICIAN ALLERGIST IMMUNOLOGIST SECTION PLOTTER OPERATOR Unavailable [phone] Brea Quinn PHYSICIAN ALLERGIST IMMUNOLOGIST SECTION PLOTTER OPERATOR Unavailable [phone] Jose Francisco Johnson MD Unavailable Livan Sharif MD Unavailable Catherine Cm MD Unavailable + Sydnie Martinez RN Unavailable Unavailable Alfonso Renteria MD Unavailable Esha Grimm PA-C Primary Care Provider Cheng Todd PA-C Unavailable [phone] Radha Lomeli PHYSICIAN ALLERGIST IMMUNOLOGIST SECTION PLOTTER OPERATOR Unavailable Jelena David OD Unavailable Pao Joseph RN Unavailable Unavailable Esha Grimm PA-C Unavailable [phone] Valery Veronica PA-C Unavailable [phone] Rey Tay MD Unavailable Rocky Zepeda DO Unavailable Philip Dumont MD Unavailable [phone] Meredith Carrera PA-C Unavailable Neil Kent MD Unavailable Juan Pablo Emmanuel MD Unavailable [phone] Audrey Waite PA-C Unavailable [phone] Valery Veronica PA-C Unavailable Hemrinia Hatch MD Unavailable Encounter Details Date Type Department Care Team (Late st Contact Info) Description 07/20/2022 MyC Medical Advice [facility] [address] [facility] [address] [place] [address] Livan Sharif MD [address] [place] [address] Social History Tobacco Use Types Packs/Day Years [...] How often do you attend confucianism or protestant serv ices? Never 09/22/2021 Do [...] Administer PHQ-9 if positive 1 05/13/2022 [facility] [place] of Occupat ional Health - Occupational Stress [...] in a penitentiary (including now)? No 09/22/2021 [place] Depression Scale Answer Date Recorded [place] Depression Score 5 01/14/2021 Last EPDS Self Harm Result Not on file 01/14 Education Answer Date Recorded What is the highest level of school you have completed or the highest degree you have received? 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 LEAD PHP DEVELOPER Gender Identity Female 03/02/2021 5:45 PM CDT Sexual Orientation Straight 02/28/2020 12 :51 AM CDT COVID-19 Exposure Response Date Recorded In the last 10 days, have yo u been in contact with someone who was confirmed or suspected to have Coronavirus/COVID-19? No / Unsure 07/23/2022 6:45 AM LEAD PHP DEVELOPER documented as of this encounter Plan of Treatment Upcoming Encounters Date Type Department Care Team (Late st Contact Info) Description 10/23/2024 9:30 AM CDT Office Visit [facility] Neurology Clinics [address], [address] [place] [address] [place] [address] [place] [address] Johnny Penn MD 8[address] [facility] [place] [phone] documented as of this encounter Visit Diagnoses [...] of this encounter Care Teams Vice President Network Relationship Specialty Start Date End Date Marija Edgar APRN SECTION PLOTTER OPERATOR PCP - General Nurse Practitioner 04/30/20 04/14/23 Esha Grimm PA-C [address] [place] [address] PCP - General Family Medicine 05/04/23 Lita Oseguera Personal Advocate & Liaison (PAL) 02/28/20 03/27/23 Marija Edgar APRN SECTION PLOTTER OPERATOR Assigned PCP 06/08/20 04/29/23 Keisha Dotson MD 909 [place] [address] Assigned Neuroscience Provider 06/04/20 04/01/23 Diana Desir, [facility] 3033 [place] [address] Pharmacist Pharmacist 04/17/21 Rain Galaviz PA-C [address] [place] [address] [address] [place] [address] Physician Mechanical Specialist Dermatology 04/28/21 Tavia Wyatt MD [address] [place] [address] [address] [place] [address] Dermatology 07/14/21 Erica Farrell APRN SECTION PLOTTER OPERATOR [address] [place] [address] Nurse Practitioner Cardiovascular Disease 09/09/21 Rich Barrett MD 516 [facility], [address] 752[address] Physician Ophthalmology 01/21/22 Neil Kent MD 500 [place], [place] 241085 Dermatology 02/24/22 Roney Story DPM [address] [facility] [address] [place], [place] 051537 Assigned Musculoskeletal Provider 03/20/22 08/13/22 Diana Desir, [facility] [address] [place], [place] 916816 Assigned MTM Pharmacist 04/07/22 Jelena David OD 3305 [facility] [place] [address] Assigned Surgical Provider 05/08/22 10/08/22 Livan Sharif MD [address] [place] [address] Cardiovascular Disease 05/14/22 Livan Sharif MD [address] [place] [address] Assigned Heart and Vascular Provider 06/12/22 07/23/22 Catherine Cm MD [address] [facility]00 [place] [address] Cardiovascular Disease 07/21/22 Valery Veronica PA-C 9 [place], [place] 342955 Physician Mechanical Specialist Dermatology 07/21/22 Catherine Cm MD [address] [facility]00 [place] 820625 Assigned Heart and Vascular Provider 07/24/22 11/05/22 Johnny Murillo MD [address] [place] [address] 307934 Assigned Musculoskeletal Provider 08/14/22 10/08/22 Brea Quinn APRN SECTION PLOTTER OPERATOR [address] [place] [address] [id number] Nurse Practitioner Dermatology 09/21/22 Brea Quinn APRN SECTION PLOTTER OPERATOR [address] [place] [address] [place] 113562 Assigned Surgical Provider 10/09/22 05/01/24 [place] [address] [place] [address] [facility] [place] [facility] 715367 Assigned Musculoskeletal Provider 10/09/22 05/01/24 Livan Sharif MD [address] [facility]00 [place] 974015 Assigned Heart and Vascular Provider 11/06/22 11/12/22 Catherine Cm MD [address] [place] [address] Assigned Heart and Vascular Provider 11/13/22 05/27/23 Sydnie Martinez RN Personal Advocate & Liaison (PAL) Family Medicine 03/28/23 07/31/23 Alfonso Renteria MD [address] [facility] [address] 200 [place], [place] 246556 Assigned Neuroscience Provider 04/02/23 Cheng Todd PA-C [address] [place] [address] [id number] Assigned PCP 04/30/23 07/15/23 Radha Lomeli APRN SECTION PLOTTER OPERATOR [address] [place], [place] 135055 Assigned Heart and Vascular Provider 05/28/23 Jelena David OD 3305 [facility] [place] [address] Ophthalmology 06/15/23 Pao Joseph, VJ Personal Advocate & Liaison (PAL) Nurse 08/01/23 11/07/23 Esha Grimm PA-C [address] [place] [phone] Assigned PCP 07/16/23 Valery Veronica PA-C 909 [place], [place] 783495 Physician Mechanical Specialist Dermatology 09/19/23 Rey Tay MD 909 [place], [place] 436785 MD Gastroenterology 09/20/23 Rocky Zepeda DO 500 [place] [address] Physician Gastroenterology 09/20/23 Philip Dumont MD 516 [place], [place] 961145 Physician Ophthalmology 09/22/23 Meredith Carrera PA-C 9 [place] [address] Assigned Gastroenterology Provider 11/01/23 Neil Kent MD [address] 325020 Dermatology 11/02/23 [place] [address] [address] [facility] [address], [place] 432[address] Neurological Surgery 12/26/23 Audrey Waite PA-C 500 [place] [address] Physician Mechanical Specialist Dermatology 02/28/24 Valery Veronica PA-C 131839 [place], [place] [address] Physician Mechanical Specialist Dermatology 04/10/24 Herminia Hatch MD [address] [place] [address] Assigned Rheumatology Provider 07/02/24 documented as of this encounter
--- OUTSIDE RECORDS SUMMARY | 2024-08-28 19:10 | XMS_ITS | Encounter Summary ---
Author Organization [place] Address [address] [place] [address] Care Team Providers Care Environmental Change Analyst Name Role Phone Diana Desir [facility] Unavailable Rain Galaviz PAUcheC Unavailable Tavia Wyatt MD Unavailable Erica Farrell US ADMINISTRATIVE LAW JUDGE HOOP MAKER HELPER MACHINE Unavailable Rich Barrett MD Unavailable [phone] Neil Kent MD Unavailable Kendrick Desirelle Stanislav [facility] Unavailable Livan Sharif MD Unavailable Catherine Cm MD Unavailable + Valery Veronica-C Unavailable [phone] Brea Quinn US ADMINISTRATIVE LAW JUDGE HOOP MAKER HELPER MACHINE Unavailable Alfonso Renteria MD Unavailable [phone] Esha GrimmC Primary Care Provider [phone] Radha Lomeli US ADMINISTRATIVE LAW JUDGE HOOP MAKER HELPER MACHINE Unavailable Jelena David OD Unavailable Esha Grimm PA-C Unavailable [phone] Valery VeronicaC Unavailable [phone] Rey Tay MD Unavailable Rocky Zepeda DO Unavailable Philip Dumont MD Unavailable [phone] Meredith CarreraC Unavailable [phone] Neil Kent MD Unavailable Juan Pablo Emmanuel MD Unavailable [phone] Audrey WaiteC Unavailable [phone] Valery VeronicaC Unavailable [phone] Herminia Hatch MD Unavailable Encounter Details Date [...] Answer Date Recorded PHQ-2 Score 1 02/07/2024 [facility] - Occupational Stress Questionnaire [...] exercise at this level? 20 min 05/07/2024 [place] Depression Scale Answer Date Recorded [...] PM CDT Legal Sex Female 4:13 AM ICT SYSTEMS TEST ENGINEER Gender Identity Female 03/02/2021 5:45 PM CDT Sexual Orientation Straight 02/28/2020 12 :51 AM CDT documented as of this encounter Plan of Treatment Upcoming Encounters Date Type Department Care Team (Late st Contact Info) Description 10/23/2024 9:30 AM CDT Office Visit [facility] Neurology [address], [address] [place] [address] [place] [address] [place] [address] Johnny Penn MD 6545 [facility] [place] 9[address] documented as of this encounter Visit Diagnoses Not on filedocumented in this encounter Additional Health Concerns Assessment Noted Time PHQ-9 Depression Total Score: 3 02/07/20 24 9:33 AM CDT documented as of this encounter Care Teams Environmental Change Analyst Relationship Specialty Start Date End Date Esha Grimm PA-C [address] [place] [address] PCP - General Family Medicine 05/04/23 Diana Desir, [facility] [address] [place] [address] Pharmacist Pharmacist 04/17/21 Rain Galaviz PA-C [address] [place] [address] [address] [place] [address] Physician Wire Spooler Dermatology 04/28/21 Tavia Wyatt MD [address] [place] [address] [address] [place] [address] Dermatology 07/14/21 Erica Farrell APRN HOOP MAKER HELPER MACHINE [address] [place] 844265 Nurse Practitioner Cardiovascular Disease 09/09/21 Rich Barrett MD 516 [facility] [address] [place], [place] [address] Physician Ophthalmology 01/21/22 Neil Kent MD 500 [place], [place] 509935 Dermatology 02/24/22 [facility] [address] [place] [address] Assigned MTM Pharmacist 04/07/22 Livan Sharif MD [address] [place] [address] Cardiovascular Disease 05/14/22 Catherine Cm MD [address] [place] [address] Cardiovascular Disease 07/21/22 Valery Veronica PA-C [address] [place] [address] 105925 Physician Wire Spooler Dermatology 07/21/22 Brea Quinn APRN HOOP MAKER HELPER MACHINE [address] [place] [address] 594115 Nurse Practitioner Dermatology 09/21/22 Alfonso Renteria MD 5775 [facility] 200 [place], [place] 103176 Assigned Neuroscience Provider 04/02/23 Radha Lomeli APRN HOOP MAKER HELPER MACHINE [address] [place] [address] Assigned Heart and Vascular Provider 05/28/23 Jelena David OD [address] [place] [address] [place] [address] Ophthalmology 06/15/23 Esha Grimm PA-C [address] [place] [address] Assigned PCP 07/16/23 Valery Veronica PA-C [address] [place] [address] 901525 Physician Wire Spooler Dermatology 09/19/23 Rey Tay MD [address] [place] [address] Gastroenterology 09/20/23 Rocky Zepeda DO 500 [place] [address] Physician Gastroenterology 09/20/23 Philip Dumont MD 516 [place] [address] Physician Ophthalmology 09/22/23 Meredith Carrera PA-C 909 [place] [address] Assigned Gastroenterology Provider 11/01/23 Neli Kent MD [address] [address] MD Dermatology 11/02/23 [place] [address] [id number] Neurological Surgery 12/26/23 Audrey Waite PA-C 500 [place] [address] Physician Wire Spooler Dermatology 02/28/24 Valery Veronica PA-C 353733 [address], [place] [address] Physician Wire Spooler Dermatology 04/10/24 Herminia Hatch MD [facility]5 [place], [place] [address]67[address] Assigned Rheumatology Provider 07/02/24 documented as of this encounter
--- OUTSIDE RECORDS SUMMARY | 2024-08-28 19:10 | XMS_ITS | Encounter Summary ---
Author Organization [place] Address [address] [place] [address] Care Team Providers Care Solar/Renewable Energy Sales Name Role Phone Lita Oseguera Unavailable Unavailable Marija Edgar APRN MAIL ORDER CLERK Primary Care Provider + Marija Edgar APRN MAIL ORDER CLERK Unavailable [phone] Keisha Dotson MD Unavailable [phone] Diana Desir [facility] Unavailable Rain Galaviz PA-C Unavailable Tavia Wyatt MD Unavailable Erica Farrell APRN MAIL ORDER CLERK Unavailable Rich Barrett MD Unavailable Neil Kent MD Unavailable Roney Story DPM Unavailable Diana Desir [facility] Unavailable [phone] Jelena David OD Unavailable Livan Sharif MD Unavailable Livan Sharif MD Unavailable Catherine Cm MD Unavailable + Valery Veronica PA-C Unavailable Catherine Cm MD Unavailable + Johnny Murillo MD Unavailable [phone] Brea Quinn WELDING MACHINE OPERATOR ELECTRON BEAM MAIL ORDER CLERK Unavailable [phone] Brea Quinn WELDING MACHINE OPERATOR ELECTRON BEAM MAIL ORDER CLERK Unavailable [phone] Jose Francisco Johnson MD Unavailable Livan Sharif MD Unavailable Catherine Cm MD Unavailable + Sydnie Martinez RN Unavailable Unavailable Alfonso Renteria MD Unavailable Esha Grimm PA-C Primary Care Provider Cheng Todd PA-C Unavailable [phone] Radha Lomeli WELDING MACHINE OPERATOR ELECTRON BEAM MAIL ORDER CLERK Unavailable Jelena David OD Unavailable Pao Joseph RN Unavailable Unavailable Esha Grimm PA-C Unavailable [phone] Valery Veronica PA-C Unavailable Rey Tay MD Unavailable Rocky Zepeda DO Unavailable Philip Dumont MD Unavailable [phone] Meredith Carrera PA-C Unavailable Neil Kent MD Unavailable Juan Pablo Emmanuel MD Unavailable Audrey Waite PA-C Unavailable [phone] Valery Veronica PA-C Unavailable Herminia Hatch MD Unavailable Reason for Visit * Reason Onset Date Comments Appointment 06/14/2022 Stress test and monitor on the same day Encounter Details Date Type Department Care Team (Late st Contact Info) Description 06/14/2022 Telephone [facility] Heart [facility] 6[address] [facility] [address] [place] [address] Livan Sharif MD [address] Sylvia [facility] [address] [place] [phone] Appointment (Stress test and monitor on the [...] How often do you attend latter-day or buddhism serv ices? Never 09/22/2021 Do [...] points; Administer PHQ-9 if positive 1 05/13/2022 [facility] [...] in a chcf (including now)? No 09/22/2021 [place] Depression Scale Answer Date Recorded [place] Depression Score 5 01/14/2021 Last EPDS Self Harm Result Not on file 01/14 Education Answer Date Recorded What is the highest level of school you have completed or the highest degree you have received? 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 HYDRAULIC AUTO JACK MECHANIC Gender Identity Female 03/02/2021 5:45 PM CDT Sexual Orientation Straight 02/28/2020 12 :51 AM CDT COVID-19 Exposure Response Date Recorded In the last 10 days, have yo u been in contact with someone who was confirmed or suspected to have Coronavirus/COVID-19? Yes 06/16/2022 12:32 PM HYDRAULIC AUTO JACK MECHANIC documented as of this encounter Miscellaneous Notes * Telephone Encounter - Amalia Matute MA - 06/14/2022 9:30 AM CST [facility] Call Center Phone Message May a [...] Not Applicable Thank you! [facility] AULIC AUTO JACK MECHANIC documented in this encounter Plan of Treatment Upcoming Encounters Date Type Department Care Team (Late st Contact Info) Description 10/23/2024 9:30 AM CDT Office Visit [facility] Neurology Clinics - [address], [address] [place] [address] [place] [address] [place] [phone] Johnny Penn MD 6545 [facility] [place], [place] 2[address] documented as of this encounter Visit Diagnoses Not on filedocumented in this encounter Additional Health Concerns Infection Onset Date Last Indicated Resolved Time COVID-19 06/09/2022 06/09/2022 06/30/2022 11:4 1 PM HYDRAULIC AUTO JACK MECHANIC Rule Out COVID-19 11/10/2022 11/10/2022 11/11/2022 12:17 PM CDT Rule Out COVID-19 03/07/2023 03/07/2023 03/07/2023 1:20 PM CDT Rule Out COVID-19 12/26/2023 12/26/2023 12/26/2023 9:50 AM CDT Rule Out COVID-19 04/09/2024 04/09/2024 04/10/2024 6:48 PM CDT Assessment Noted Time PHQ-9 Depression Total Score: 3 05/13/20 8:49 PM CDT documented as of this encounter Care Teams Solar/Renewable Energy Sales Relationship Specialty Start Date End Date Marija Edgar APRN MAIL ORDER CLERK PCP - General Nurse Practitioner 04/30/20 04/14/23 Esha Grimm PA-C [address] [place] [phone] PCP - General Family Medicine 05/04/23 Lita Oseguera Personal Advocate & Liaison (PAL) 02/28/20 03/27/23 Marija Edgar APRN MAIL ORDER CLERK Assigned PCP 06/08/20 04/29/23 Keisha Dotson MD [address] [place] [address] 335865 Assigned Neuroscience Provider 06/04/20 04/01/23 Diana Desir [facility] [address] [place] [address] Pharmacist Pharmacist 04/17/21 Rain Galaviz PA-C [address] [place] [address] [address] [facility] [address] Physician Unemployment Examiner Dermatology 04/28/21 Tavia Wyatt MD [address] [place] [address] [facility] [address] [facility] [address] Dermatology 07/14/21 Erica Farrell APRN MAIL ORDER CLERK [address] [place], [place] 780175 Nurse Practitioner Cardiovascular Disease 09/09/21 Rich Barrett MD 516 [facility] 9A [place], [place] 341885 Physician Ophthalmology 01/21/22 Neil Kent MD [address] [place] [address] 216025 Dermatology 02/24/22 Roney Story DPM [address] [facility] 300 [place], [place] 361377 Assigned Musculoskeletal Provider 03/20/22 08/13/22 Diana Desir [facility] [address] [place] [address] Assigned MTM Pharmacist 04/07/22 [place] [address] [place] [address] [place] [address] Assigned Surgical Provider 05/08/22 10/08/22 Livan Sharif MD [address], [facility] [address] [place] [address] Cardiovascular Disease 05/14/22 Livan Sharif MD [address], [facility]00 [place] [address] Assigned Heart and Vascular Provider 06/12/22 07/23/22 Catherine Cm MD [address] [facility]00 [place] [address] Cardiovascular Disease 07/21/22 Valery Veronica, PA-C [address] [place] [address] Physician Unemployment Examiner Dermatology 07/21/22 Catherine Cm MD [address] [facility]00 [place] [address] Assigned Heart and Vascular Provider 07/24/22 11/05/22 Johnyn Murillo MD [facility] [address] [address] Assigned Musculoskeletal Provider 08/14/22 10/08/22 Brea Quinn APRN MAIL ORDER CLERK [address] [place] [address] Nurse Practitioner Dermatology 09/21/22 Brea Quinn APRN MAIL ORDER CLERK 6401 [facility] [place] [address] Assigned Surgical Provider 10/09/22 05/01/24 [place] [address] [address] [facility] 300 [place] [address] Assigned Musculoskeletal Provider 10/09/22 05/01/24 Livan Sharif MD [address] [facility] [address] [place] [address] Assigned Heart and Vascular Provider 11/06/22 11/12/22 Catherine Cm MD [address] [facility]00 [place] 900015 Assigned Heart and Vascular Provider 11/13/22 05/27/23 Sydnie Martinez, VJ Personal Advocate & Liaison (PAL) Family Medicine 03/28/23 07/31/23 Alfonso Renteria MD 5775 [facility] 200 [place] [address] Assigned Neuroscience Provider 04/02/23 Cheng Todd PA-C [address] [place] [address] Assigned PCP 04/30/23 07/15/23 Radha Lomeli APRN MAIL ORDER CLERK [address] [place] [address] Assigned Heart and Vascular Provider 05/28/23 Jelena David OD [address] [place] [address] MD Ophthalmology 06/15/23 Pao Joseph, RN Personal Advocate & Liaison (PAL) Nurse 08/01/23 11/07/23 Esha Grimm PA-C [address] [place] [phone] Assigned PCP 07/16/23 Valery Veronica PA-C [address] [place] [address] [phone] Physician Unemployment Examiner Dermatology 09/19/23 Rey Tay MD [address] [place] [address] 452675 Gastroenterology 09/20/23 Rocky Zepeda DO [address] [place] [address] 650795 Physician Gastroenterology 09/20/23 Philip Dumont MD [address] [place] [address] 331465 Physician Ophthalmology 09/22/23 Meredith Carrera PA-C [address] [place] [address] 893325 Assigned Gastroenterology Provider 11/01/23 Neil Kent MD [address] [place] [address] 668120 Dermatology 11/02/23 [place] [address] [address] Neurological Surgery 12/26/23 Audrey Waite PA-C 500 [place] [address] Physician Unemployment Examiner Dermatology 02/28/24 Valery Veronica PA-C [address] [place] [address] Physician Unemployment Examiner Dermatology 04/10/24 Herminia Hatch MD [facility]5 [place], [place] [address] Assigned Rheumatology Provider 07/02/24 documented as of this encounter
--- OUTSIDE RECORDS SUMMARY | 2024-08-28 19:10 | XMS_ITS | Encounter Summary ---
Author Organization [place] Address [address] [place] [address] Care Team Providers Care Sas Analyst Name Role Phone Diana Desir [facility] Unavailable Rain Galaviz PA-C Unavailable Tavia Wyatt MD Unavailable Erica Farrell APRN OFFICE MACHINE INSPECTOR Unavailable Rich Barrett MD Unavailable [phone] Neil Kent MD Unavailable Diana Desir [facility] Unavailable [phone] Livan Sharif MD Unavailable Catherine Cm MD Unavailable + Valery Veronica PA-C Unavailable Brea Quinn MOTION STUDY ENGINEER OFFICE MACHINE INSPECTOR Unavailable Brea Quinn MOTION STUDY ENGINEER OFFICE MACHINE INSPECTOR Unavailable Jose Francisco Johnson MD Unavailable Alfonso Renteria MD Unavailable [phone] Esha Grimm PA-C Primary Care Provider Radha Lomeli APRN OFFICE MACHINE INSPECTOR Unavailable Jelena David OD Unavailable [phone] Pao Joseph RN Unavailable Unavailable Esha Grimm PA-C Unavailable [phone] Valery Veronica PA-C Unavailable [phone] Rey Tay MD Unavailable Rocky Zepeda DO Unavailable Philip Dumont MD Unavailable [phone] Meredith Carrera PA-C Unavailable [phone] Neil Kent MD Unavailable Juan Pablo Emmanuel MD Unavailable [phone] Audrey Waite PA-C Unavailable [phone] Valery Veronica PA-C Unavailable Herminia Hatch MD Unavailable Encounter Details Date Type Department Care Team (Late st Contact Info) Description 09/01/2023 [facility] [address] [address] [facility] [address] [place] [address] Social History Tobacco Use Types Packs/Day Years [...] attend [facility] or mandaeism services? 1 to 4 [...] 06/20/2023 [facility] Occupational Stress Questionnaire Answer [...] exercise at this level? 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 COMBINE DRIVER Gender Identity Female 03/02/2021 5:45 PM CDT Sexual Orientation Straight 02/28/2020 12 :51 AM CDT documented as of this encounter Plan of Treatment Upcoming Encounters Date Type Department Care Team (Late st Contact Info) Description 10/23/2024 9:30 AM CDT Office Visit [facility] Neurology Clinics [address], [address] [place] [address] [place] [address] [place] [address] Johnny Penn MD [address] [place] [address] documented as of this encounter Visit Diagnoses Not on filedocumented in this encounter Additional Health Concerns Infection Onset Date Last Indicated Resolved Time Rule Out COVID-19 12/26/2023 12/26/2023 12/26/2023 9:50 AM CDT Rule Out COVID-19 04/09/2024 04/09/2024 04/10/2024 6:48 PM CDT Assessment Noted Time PHQ-9 Depression Total Score: 4 06/20/20 23 8:40 AM COMBINE DRIVER documented as of this encounter Care Teams Sas Analyst Relationship Specialty Start Date End Date Esha Grimm PA-C [address] [place] [address] PCP - General Family Medicine 05/04/23 Diana Desir, [facility] 3033 [place] [address] Pharmacist Pharmacist 04/17/21 Rain Galaviz PA-C [address] [place] [address] [address] [place] [address] Physician Misdraw Hand Dermatology 04/28/21 Tavia Wyatt MD [address] [place] [address] [address] [place] [address] Dermatology 07/14/21 Erica Farrell APRN OFFICE MACHINE INSPECTOR 6405 [facility] [address] [place] [address] Nurse Practitioner Cardiovascular Disease 09/09/21 Rich Barrett MD [address] [place] [address] 297195 Physician Ophthalmology 01/21/22 Neil Kent MD [address] [place] [address] Dermatology 02/24/22 [facility] 3033 [place] [address] Assigned [place] Pharmacist 04/07/22 Livan Sharif MD [address] [place] 9687700 [place] [address] Cardiovascular Disease 05/14/22 Catherine Cm MD [address] 843405 Cardiovascular Disease 07/21/22 Valery Veronica, PAUcheC 909 [place] [address] Physician Misdraw Hand Dermatology 07/21/22 Brea Quinn APRN OFFICE MACHINE INSPECTOR 500 [place] [address] Nurse Practitioner Dermatology 09/21/22 Brea Quinn APRN OFFICE MACHINE INSPECTOR [address] [place] [address] Assigned Surgical Provider 10/09/22 05/01/24 [place] [address] [place] [address] [address] Assigned Musculoskeletal Provider 10/09/22 05/01/24 Alfonso Renteria MD 5793 [facility] 200 [place] [address] Assigned Neuroscience Provider 04/02/23 Radha Lomeli APRN OFFICE MACHINE INSPECTOR [address] [place] [address] Assigned Heart and Vascular Provider 05/28/23 Jelena David OD [address] [facility] [place] [address] Ophthalmology 06/15/23 Pao Joseph, VJ Personal Advocate & Liaison (PAL) Nurse 08/01/23 11/07/23 Esha Grimm PA-C [address] [place] [address]320[address]283 Assigned PCP 07/16/23 Valery Veronica PA-C [address] [place] [address] 202375 Physician Misdraw Hand Dermatology 09/19/23 Rey Tay MD [address] [place] [address] 879645 Gastroenterology 09/20/23 Rocky Zepeda DO [address] [place] [address] 891925 Physician Gastroenterology 09/20/23 Philip Dumont MD [address] [place] [address] 332125 Physician Ophthalmology 09/22/23 Meredith Carrera PA-C [address] [place] [address] Assigned Gastroenterology Provider 11/01/23 Neil Kent MD [address] [address] Dermatology 11/02/23 [place] [address] [place] [address] [address] Neurological Surgery 12/26/23 Audrey Waite PA-C 500 [place] [address] Physician [place]isdraw Hand Dermatology 02/28/24 Valery Veronica PA-C 407892 [address], [place] [address] Physician [place] Hand Dermatology 04/10/24 Herminia Hatch MD [facility]5 [place], [place] 89[address] Assigned Rheumatology Provider 07/02/24 documented as of this encounter
--- OUTSIDE RECORDS SUMMARY | 2024-08-28 19:10 | XMS_ITS | Encounter Summary ---
Author Organization [facility] Address [address] [place] [address] Care Team Providers Care Pickling Tank Operator Name Role Phone Lita Oseguera Unavailable Unavailable Marija Edgar APRN NURSE RN BSN Primary Care Provider + Marija Edgar APRN NURSE RN BSN Unavailable [phone] Keisha Dotson MD Unavailable [phone] Diana Desir [facility] Unavailable Rain Galaviz PA-C Unavailable Tavia yWatt MD Unavailable Erica Farrell APRN NURSE RN BSN Unavailable Rich Barrett MD Unavailable Neil Kent MD Unavailable Roney Story DPM Unavailable [phone] Diana Desir [facility] Unavailable Jelena David OD Unavailable [phone] Livan Sharif MD Unavailable Livan Sharif MD Unavailable Catherine Cm MD Unavailable + Valery Veronica PA-C Unavailable Catherine Cm MD Unavailable + Johnny Murillo MD Unavailable [phone] Brea Quinn SOURCING ANALYST NURSE RN BSN Unavailable [phone] Brea Quinn SOURCING ANALYST NURSE RN BSN Unavailable [phone] Jose Francisco Johnson MD Unavailable Livan Sharif MD Unavailable Catherine Cm MD Unavailable + Sydnie Martinez RN Unavailable Unavailable Alfonso Renteria MD Unavailable Esha Grimm PA-C Primary Care Provider Cheng Todd PA-C Unavailable [phone] Radha Lomeli SOURCING ANALYST NURSE RN BSN Unavailable Jelena David OD Unavailable Pao Joseph RN Unavailable Unavailable Esha Grimm PA-C Unavailable [phone] Valery Veronica PA-C Unavailable [phone] Rey Tay MD Unavailable Rocky Zepeda DO Unavailable Philip Dumont MD Unavailable [phone] Meredith Carrera PA-C Unavailable [phone] Neil Kent MD Unavailable Juan Pablo Emmanuel MD Unavailable [phone] Audrey Waite PA-C Unavailable [phone] Valery Veronica PA-C Unavailable Herminia Hatch MD Unavailable Encounter Details Date Type Department Care Team (Late st Contact Info) Description 07/07/2022 MyC Medical Advice [facility] [address] [facility] [address] [place] [address] Livan Sharif MD [address] [place] [address] Social History Tobacco Use Types Packs/Day Years [...] How often do you attend zoroastrianism or yazidism serv ices? Never 09/22/2021 Do [...] points; Administer PHQ-9 if positive 1 05/13/2022 [facility] [place] of Occupat ional Health - Occupational Stress [...] a skilled nursing (including now)? No 09/22/2021 [place] Depression Scale Answer Date Recorded [place] Depression Score 5 01/14/2021 Last EPDS Self Harm Result Not on file 01/14 Education Answer Date Recorded What is the highest level of school you have completed or the highest degree you have received? 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 No / Unsure 06/25/2022 8:44 AM TEMP RECRUITER documented as of this encounter Plan of Treatment Upcoming Encounters Date Type Department Care Team (Late st Contact Info) Description 10/23/2024 9:30 AM CDT Office Visit [facility] [address], [address] [place] [address] [place] [address] [place] [address] Johnny Penn MD [address] [facility] [place] [id number] documented as of this encounter Visit Diagnoses [...] documented as of this encounter Care Teams Pickling Tank Operator Relationship Specialty Start Date End Date Marija Edgar APRN NURSE RN BSN PCP - General Nurse Practitioner 04/30/20 04/14/23 Esha Grimm PA-C [address] [place] [address] PCP - General Family Medicine 05/04/23 Lita Oseguera Personal Advocate & Liaison (PAL) 02/28/20 03/27/23 Marija Edgar APRN NURSE RN BSN Assigned PCP 06/08/20 04/29/23 Keisha Dotson MD [address]09 [place] [address] Assigned Neuroscience Provider 06/04/20 04/01/23 Diana Desir, [facility] 3033 [place] [address] Pharmacist Pharmacist 04/17/21 Rain Galavzi PA-C [address] [place] [address] [address] [place] [address] Physician Hospice Consultant Dermatology 04/28/21 Tavia Wyatt MD [address] [place] [address] [address] [place] [address] Dermatology 07/14/21 Erica Farrell APRN NURSE RN BSN [address] [place] [address] Nurse Practitioner Cardiovascular Disease 09/09/21 Rich Barrett MD 516 [facility], [address] 052525 Physician Ophthalmology 01/21/22 Neil eKnt MD 500 [place], [place] 540505 Dermatology 02/24/22 Roney Story DPM [address] [employer] [facility] [address] [place], [place] 703827 Assigned Musculoskeletal Provider 03/20/22 08/13/22 Diana Desir, [facility] [address] [place], [place] 844766 Assigned MTM Pharmacist 04/07/22 Jelena David OD [address] [facility] [place] [address] Assigned Surgical Provider 05/08/22 10/08/22 Livan Sharif MD [address] [place] [address] Cardiovascular Disease 05/14/22 Livan Sharif MD [address] [place] [address] Assigned Heart and Vascular Provider 06/12/22 07/23/22 Catherine Cm MD [address] [facility]00 [place] [address] Cardiovascular Disease 07/21/22 Valery Veronica PA-C 9 [place], [place] 847165 Physician Hospice Consultant Dermatology 07/21/22 Catherine Cm MD [address] [facility]00 [place] 902805 Assigned Heart and Vascular Provider 07/24/22 11/05/22 Johnny Murillo MD [address] [place] [address] 906374 Assigned Musculoskeletal Provider 08/14/22 10/08/22 Brea Quinn APRN NURSE RN BSN [address] [place] [address] [id number] Nurse Practitioner Dermatology 09/21/22 Brea Quinn APRN [place]URSE RN BSN [address] [place] [address] [place] 238332 Assigned Surgical Provider 10/09/22 05/01/24 [place] [address] [facility] [place] 611427 Assigned Musculoskeletal Provider 10/09/22 05/01/24 Livan Sharif MD [address] [facility]00 [place] 868195 Assigned Heart and Vascular Provider 11/06/22 11/12/22 Catherine Cm MD [address] [place] [address] Assigned Heart and Vascular Provider 11/13/22 05/27/23 Sydnie Martinez RN Personal Advocate & Liaison (PAL) Family Medicine 03/28/23 07/31/23 Alfonso Renteria MD 5775 [facility] [address] [place], [place] 358886 Assigned Neuroscience Provider 04/02/23 Cheng Todd PA-C [address] [place] [address] [phone] Assigned PCP 04/30/23 07/15/23 Radha Lomeli APRN NURSE RN BSN [address] [place], [place] 894385 Assigned Heart and Vascular Provider 05/28/23 Jelena David OD [address] [facility] [place] [address] Ophthalmology 06/15/23 Pao Joseph, VJ Personal Advocate & Liaison (PAL) Nurse 08/01/23 11/07/23 Esha Grimm PA-C [address] [place] [phone] Assigned PCP 07/16/23 Valery Veronica PA-C 909 [place], [place] 530445 Physician Hospice Consultant Dermatology 09/19/23 Rey Tay MD 909 [place], [place] 050225 MD Gastroenterology 09/20/23 Rocky Zepeda DO 500 [place] [address] Physician Gastroenterology 09/20/23 Philip Dumont MD 516 [place], [place] 337165 Physician Ophthalmology 09/22/23 Meredith Carrera PA-C 9 [place] [address] Assigned Gastroenterology Provider 11/01/23 Neil Kent MD [address] 1955[address] Dermatology 11/02/23 [place] [address] [address] [facility] [place], [place] 777607 Neurological Surgery 12/26/23 Audrey [place] PA-C 500 [place] [address] Physician Hospice Consultant Dermatology 02/28/24 Valery Veronica PA-C 326506 [place] [address] Physician Hospice Consultant Dermatology 04/10/24 Herminia Hatch MD [address] [place] [address] Assigned Rheumatology Provider 07/02/24 documented as of this encounter
--- OUTSIDE RECORDS SUMMARY | 2024-08-28 19:10 | XMS_ITS | Encounter Summary ---
Author Organization [facility] Address [address] [place] [address] Care Team Providers Care Chemical Weigher Name Role Phone Diana Desir [facility] Unavailable Rain Galaviz PA-C Unavailable [phone] Tavia Wyatt MD Unavailable Erica Farrell APRN MARKETING DATABASE CONSULTANT Unavailable Rich Barrett MD Unavailable [phone] Neil Kent MD Unavailable Diana Desir [facility] Unavailable Livan Sharif MD Unavailable Catherine Cm MD Unavailable + Valery Veronica PA-C Unavailable Brea Quinn INDUSTRIAL CONVEYOR BELT REPAIRER MARKETING DATABASE CONSULTANT Unavailable Brea Quinn INDUSTRIAL CONVEYOR BELT REPAIRER MARKETING DATABASE CONSULTANT Unavailable Jose Francisco Johnson MD Unavailable Alfonso Renteria MD Unavailable [phone] Esha Grimm PA-C Primary Care Provider Radha Lomeli APRN MARKETING DATABASE CONSULTANT Unavailable Jelena David OD Unavailable [phone] Pao Joseph RN Unavailable Unavailable Esha Grimm PA-C Unavailable [phone] Valery Veronica PA-C Unavailable [phone] Rey Tay MD Unavailable Rocky Zepeda DO Unavailable Philip Dumont MD Unavailable [phone] Meredith Carrera PA-C Unavailable [phone] Neil Kent MD Unavailable Juan Pablo Emmanuel MD Unavailable [phone] Audrey Waite PA-C Unavailable [phone] Valery Veronica PA-C Unavailable Herminia Hatch MD Unavailable Encounter Details Date Type Department Care Team (Late st Contact Info) Description 09/08/2023 [facility] Medical Advice [facility] [address] [address] Marija Polanco RN Social [...] do you attend [facility] or mormonism services? 1 to 4 [...] Date Recorded PHQ-2 Score 0 06/20/2023 [facility] of Occupat ional [...] exercise at this level? 30 min 03/10/2023 [place] Depression Scale Answer Date [...] PM CDT Legal Sex Female 4:13 AM BUSHEL GIRL Gender Identity Female 03/02/2021 5:45 PM CDT Sexual Orientation Straight 02/28/2020 12 :51 AM CDT documented as of this encounter Plan of Treatment Upcoming Encounters Date Type Department Care Team (Late st Contact Info) Description 10/23/2024 9:30 AM CDT Office Visit [facility] Neurology [address], [address] [place] [address] [place] [address] [place] 911017 Johnny Penn MD [address] [place] [address] documented as of this encounter Visit Diagnoses Not on filedocumented in this encounter Additional Health Concerns Infection Onset Date Last Indicated Resolved Time Rule Out COVID-19 12/26/2023 12/26/2023 12/26/2023 9:50 AM CDT Rule Out COVID-19 04/09/2024 04/09/2024 04/10/2024 6:48 PM CDT Assessment Noted Time PHQ-9 Depression Total Score: 4 06/20/20 23 8:40 AM BUSHEL GIRL documented as of this encounter Care Teams Chemical Weigher Relationship Specialty Start Date End Date Esha Grimm PA-C [address] [place] [address] PCP - General Family Medicine 05/04/23 Diana Desir, [facility] [address] [place], [place] 106096 Pharmacist Pharmacist 04/17/21 Rain Galaviz PA-C [address] [place] [address] [address] [place] [address] Physician Paper Colorer Dermatology 04/28/21 Tavia Wyatt MD [address] [place] [address] [address] [place] [address] [id number] Dermatology 07/14/21 Erica Farrell APRN MARKETING DATABASE CONSULTANT 6405 [facility] [address] [place], [place] 717215 Nurse Practitioner Cardiovascular Disease 09/09/21 Rich Barrett MD 516 [facility] 9A [place], [place] 121185 Physician Ophthalmology 01/21/22 Neil Ketn MD 500 [place], [place] 819145 Dermatology 02/24/22 Diana Desir, [facility] 3033 [place] [address] Assigned MTM Pharmacist 04/07/22 Livan Sharif MD [address], [facility] [address] [place] 839775 Cardiovascular Disease 05/14/22 Catherine Cm MD [address] [facility] [address] [place] 468365 Cardiovascular Disease 07/21/22 Valery Veronica, PA-C 909 [place], [place] 697135 Physician Paper Colorer Dermatology 07/21/22 Brea Quinn APRN MARKETING DATABASE CONSULTANT 500 [place], [place] 078905 Nurse Practitioner Dermatology 09/21/22 Brea Quinn APRN MARKETING DATABASE CONSULTANT [address] [place] [address] 412042 Assigned Surgical Provider 10/09/22 05/01/24 [place] [address] [address] [facility] 300 [place], [place] 371847 Assigned Musculoskeletal Provider 10/09/22 05/01/24 Alfonso Renteria MD 5775 [facility] 200 [place], [place] 754876 Assigned Neuroscience Provider 04/02/23 Radha Lomeli APRN MARKETING DATABASE CONSULTANT 6[address] [facility] [address] [place] [address] Assigned Heart and Vascular Provider 05/28/23 Jelena David OD [address] [facility] [place] [address] MD Ophthalmology 06/15/23 Pao Joseph, VJ Personal Advocate & Liaison (PAL) Nurse 08/01/23 11/07/23 Esha Grimm PA-C [address] [place] [phone] Assigned PCP 07/16/23 Valery Veronica PA-C [address] [place] [address] 466225 Physician Paper Colorer Dermatology 09/19/23 Rey Tay MD [address] [place] [address] 800765 Gastroenterology 09/20/23 Rocky Zepeda DO [address] [place] [address] 313345 Physician Gastroenterology 09/20/23 Philip Dumont MD [address] [place] [address] 617825 Physician Ophthalmology 09/22/23 Meredith Carrera PA-C [address] [place] [address] 084145 Assigned Gastroenterology Provider 11/01/23 Neil Kent MD [address] [place] [address] Dermatology 11/02/23 [place] [address] 112107 Neurological Surgery 12/26/23 Audery [place] PA-C 500 [place] [address] Physician Paper Colorer Dermatology 02/28/24 Valery Veronica PA-C 317982 [address], [place] [address] Physician Paper Colorer Dermatology 04/10/24 Herminia Hatch MD [facility]5 [place] [address] Assigned Rheumatology Provider 07/02/24 documented as of this encounter
--- OUTSIDE RECORDS SUMMARY | 2024-08-28 19:10 | XMS_ITS | Encounter Summary ---
Author Organization [facility] Address [address] [place] [address] Care Team Providers Care Knitting Teacher Name Role Phone Lita Oseguera Unavailable Unavailable Marija Edgar APRN BRAILLE TRANSCRIBER Primary Care Provider + Marija Edgar APRN BRAILLE TRANSCRIBER Unavailable [phone] Keisha Dotson MD Unavailable Diana Desir [facility] Unavailable Rain Galaviz PA-C Unavailable Tavia Wyatt MD Unavailable Erica Farrell APRN BRAILLE TRANSCRIBER Unavailable Rich Barrett MD Unavailable Neil Kent MD Unavailable Roney Story DPM Unavailable Diana Desir [facility] Unavailable Jelena David OD Unavailable Livan Sharif MD Unavailable Livan Sharif MD Unavailable Catherine Cm MD Unavailable + Valery Veronica PA-C Unavailable Catherine Cm MD Unavailable + Johnny Murillo MD Unavailable [phone] Brea Quinn MATH SPECIALIST BRAILLE TRANSCRIBER Unavailable [phone] Brea Quinn MATH SPECIALIST BRAILLE TRANSCRIBER Unavailable [phone] Jose Francisco Johnson MD Unavailable Livan Sharif MD Unavailable Catherine Cm MD Unavailable + Sydnie Martinez RN Unavailable Unavailable Alfonso Renteria MD Unavailable Esha Grimm PA-C Primary Care Provider Cheng Todd PA-C Unavailable [phone] Radha Lomeli MATH SPECIALIST BRAILLE TRANSCRIBER Unavailable Jelena David OD Unavailable Pao Joseph RN Unavailable Unavailable Esha Grimm PA-C Unavailable [phone] Valery Veronica PA-C Unavailable [phone] Rey Tay MD Unavailable Rocky Zepeda DO Unavailable Philip Dumont MD Unavailable [phone] Meredith Carrera PA-C Unavailable Neil Kent MD Unavailable Juan Pablo Emmanuel MD Unavailable Audrey Waite PA-C Unavailable [phone] Valery Veronica PA-C Unavailable [phone] Herminia Hatch MD Unavailable Encounter Details Date Type Department Care Team (Late st Contact Info) Description 07/20/2022 MyC Medical Advice [address] [address] Pao Donahue RN Social History [...] How often do you attend sikh or holiness serv ices? Never 09/22/2021 Do [...] Administer PHQ-9 if positive 1 05/13/2022 [facility] of Occupat ional [facility] - Occupational Stress Questionnaire Answer Date [...] in a assisted (including now)? No 09/22/2021 [place] Depression Scale Answer Date Recorded [place] Depression Score 5 01/14/2021 Last EPDS Self Harm Result Not on file 01/14 Education Answer Date Recorded What is the highest level of school you have completed or the highest degree you have received? 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 Gender Identity Female 03/02/2021 5:45 PM CDT Sexual Orientation Straight 02/28/2020 12 :51 AM CDT COVID-19 Exposure Response Date Recorded In the last 10 days, have yo u been in contact with someone who was confirmed or suspected to have Coronavirus/COVID-19? No / Unsure 07/23/2022 6:[address] documented as of this encounter Plan of Treatment Upcoming Encounters Date Type Department Care Team (Late st Contact Info) Description 10/23/2024 9:30 AM CDT Office Visit [facility] Neurology [address], [address] [place] [address] [place] [address] [id number] Johnny Penn MD [address] [place] [address] documented as of this encounter Visit Diagnoses [...] as of this encounter Care Teams Knitting Teacher Relationship Specialty Start Date End Date Marija Edgar APRN BRAILLE TRANSCRIBER PCP - General Nurse Practitioner 04/30/20 04/14/23 Esha Grimm PA-C [address] [place] [address] PCP - General Family Medicine 05/04/23 Lita Oseguera Personal Advocate & Liaison (PAL) 02/28/20 03/27/23 Mariaj Edgar APRN BRAILLE TRANSCRIBER Assigned PCP 06/08/20 04/29/23 Keisha Dotson MD 909 [place], [place] 410075 Assigned Neuroscience Provider 06/04/20 04/01/23 Diana Desir, [facility] 3033 [place], [place] 910336 Pharmacist Pharmacist 04/17/21 Rain Galaviz PA-C [address] [place] [address] [address] [place] [address] Physician Business Intelligence Developer Dermatology 04/28/21 Tavia Wyatt MD [address] [place] [address] [address] [place] [address] Dermatology 07/14/21 Erica Farrell APRN BRAILLE TRANSCRIBER 6405 [facility] [address] [place] [address] Nurse Practitioner Cardiovascular Disease 09/09/21 Rich Barrett MD 516 [facility] 9A [place], [place] 387165 Physician Ophthalmology 01/21/22 Neil Kent MD 500 [place] [address] Dermatology 02/24/22 Roney Story DPM [address] [facility] [address] [place] [address] Assigned Musculoskeletal Provider 03/20/22 08/13/22 Diana Desir, [facility] [address] [place] [address] Assigned MTM Pharmacist 04/07/22 Jelena David OD 3305 [facility] [place] [address] Assigned Surgical Provider 05/08/22 10/08/22 Livan Sharif MD [address] [place] [address] Cardiovascular Disease 05/14/22 Livan Sharif MD [address] [place] [address] Assigned Heart and Vascular Provider 06/12/22 07/23/22 Catherine Cm MD [address] [place] [address] Cardiovascular Disease 07/21/22 Valery Veronica, PAUcheC [address] [place] [address] Physician Business Intelligence Developer Dermatology 07/21/22 Catherine Cm MD [address] [facility]00 [place] [address] Assigned Heart and Vascular Provider 07/24/22 11/05/22 Johnny Murillo MD [address] [place] [address] Assigned Musculoskeletal Provider 08/14/22 10/08/22 Brea Quinn APRN BRAILLE TRANSCRIBER [address] [place] [address] Nurse Practitioner Dermatology 09/21/22 Brea Quinn APRN BRAILLE TRANSCRIBER [address] [place] [address] Assigned Surgical Provider 10/09/22 05/01/24 [place] [address] [address] Assigned Musculoskeletal Provider 10/09/22 05/01/24 Livan Sharif MD [address] [place] 7230800 [place] [address] Assigned Heart and Vascular Provider 11/06/22 11/12/22 Catherine Cm MD [address] [place], [place] 557285 Assigned Heart and Vascular Provider 11/13/22 05/27/23 Sydnie Martinez RN Personal Advocate & Liaison (PAL) Family Medicine 03/28/23 07/31/23 Alfonso Renteria MD [facility] 200 [place] [address] Assigned Neuroscience Provider 04/02/23 Cheng Todd PA-C [address] [place] [address] [id number] Assigned PCP 04/30/23 07/15/23 Radha Lomeli APRN BRAILLE TRANSCRIBER [address] [place] [address] Assigned Heart and Vascular Provider 05/28/23 Jelena David OD [address] [place] [address] Ophthalmology 06/15/23 Pao Joseph RN Personal Advocate & Liaison (PAL) Nurse 08/01/23 11/07/23 Esha Grimm PA-C [address] [place] [address] Assigned PCP 07/16/23 Valery Veronica PA-C [address] [place] [address] Physician Business Intelligence Developer Dermatology 09/19/23 Rey Tay MD 909 [place] [address] Gastroenterology 09/20/23 Rocky Zepeda DO 500 [place] [address] Physician Gastroenterology 09/20/23 Philip Dumont MD 6 [place] [address] Physician Ophthalmology 09/22/23 Meredith Carrera PA-C 9 [place] [address] Assigned Gastroenterology Provider 11/01/23 Neil Kent MD [address] [address] MD Dermatology 11/02/23 [place] [address] [address] [address] Neurological Surgery 12/26/23 Audrey Waite PA-C 500 [place] [address] Physician Business Intelligence Developer Dermatology 02/28/24 Valery Veronica PA-C 111426 [address] [address] Physician Business Intelligence Developer Dermatology 04/10/24 Herminia Hatch MD 1875 [place], [place] 57378125 Assigned Rheumatology Provider 07/02/24 documented as of this encounter
--- OUTSIDE RECORDS SUMMARY | 2024-08-28 19:10 | XMS_ITS | Encounter Summary ---
Author Organization [place] Address [address] [place] [address] Care Team Providers Care Warehouse Insulation Worker Name Role Phone Diana Desir [facility] Unavailable Rain Galaviz PA-C Unavailable Tavia Wyatt MD Unavailable Erica Farrell APRN VOLUNTEER ASSISTANT Unavailable Rich Barrett MD Unavailable [phone] Neil Kent MD Unavailable Diana Desir [facility] Unavailable Livan Sharif MD Unavailable Catherine Cm MD Unavailable + Valery Veronica PA-C Unavailable [phone] Brea Quinn FLANGING MACHINE OPERATOR VOLUNTEER ASSISTANT Unavailable Brea Quinn FLANGING MACHINE OPERATOR VOLUNTEER ASSISTANT Unavailable Jose Francisco Johnson MD Unavailable Alfonso Renteria MD Unavailable [phone] Esha Grimm PA-C Primary Care Provider Radha Lomeli APRN VOLUNTEER ASSISTANT Unavailable Jelena David OD Unavailable Pao Joseph RN Unavailable Unavailable Esha Grimm PA-C Unavailable [phone] Valery Veronica PA-C Unavailable [phone] Rey Tay MD Unavailable Rocky Zepeda DO Unavailable Philip Dumont MD Unavailable [phone] Meredith Carrera PA-C Unavailable [phone] Neil Kent MD Unavailable Juan Pablo Emmanuel MD Unavailable [phone] Audrey Waite PA-C Unavailable [phone] Valery Veronica PA-C Unavailable Herminia Hatch MD Unavailable Encounter Details Date Type Department Care Team (Late st Contact Info) Description 09/08/2023 [facility] [address] [address] Mary Kelsey Social History Tobacco [...] CDT Legal 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 Gender Identity Female 03/02/2021 5:45 PM CDT Sexual Orientation Straight 02/28/2020 12 :51 AM CDT documented as of this encounter Plan of Treatment Upcoming Encounters Date Type Department Care Team (Late st Contact Info) Description 10/23/2024 9:30 AM CDT Office Visit [facility] Neurology [address], [address] [place] [address] [place] [address] [place] 758197 Johnny Penn MD [address] [place] [id number] documented as of this encounter Visit Diagnoses Not on filedocumented in this encounter Additional Health Concerns Infection Onset Date Last Indicated Resolved Time Rule Out COVID-19 12/26/2023 12/26/2023 12/26/2023 9:50 AM CDT Rule Out COVID-19 04/09/2024 04/09/2024 04/10/2024 6:48 PM CDT Assessment Noted Time PHQ-9 Depression Total Score: 4 06/20/20 23 8:40 AM 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 documented as of this encounter Care Teams Warehouse Insulation Worker Relationship Specialty Start Date End Date Esha Grimm PA-C [address] [place] [address] PCP - General Family Medicine 05/04/23 Diana Desir, [facility] [address] [place], [place] [phone] Pharmacist Pharmacist 04/17/21 Rain Galaviz PA-C [address] [place] [address] [address] [place] [address] Physician Cleaner Touch Up Worker Dermatology 04/28/21 Tavia Wyatt MD [address] [place] [address] [address] [place], [place] [phone] Dermatology 07/14/21 Erica Farrell APRN VOLUNTEER ASSISTANT [address] [facility] [address] [place], [place] 9885[address] Nurse Practitioner Cardiovascular Disease 09/09/21 Rich Barrett MD [address] [facility] [address] [place], [place] [address] Physician Ophthalmology 01/21/22 Neil Kent MD [address] [place], [place] 758465 Dermatology 02/24/22 Diana Desir, [facility] [address] [place] [address] Assigned MTM Pharmacist 04/07/22 Livan Sharif MD [address], [facility] [address] [place], [place] [address] Cardiovascular Disease 05/14/22 Catherine Cm MD [address] [facility] [address] [place], [place] 8068[address] Cardiovascular Disease 07/21/22 Valery Veronica, PAUcheC [address] [place], [place] 802635 Physician Cleaner Touch Up Worker Dermatology 07/21/22 Brea Quinn APRN VOLUNTEER ASSISTANT 500 [place], [place] 653155 Nurse Practitioner Dermatology 09/21/22 Brea Quinn APRN VOLUNTEER ASSISTANT [address] [place] [address] 858992 Assigned Surgical Provider 10/09/22 05/01/24 [place] [address] [address] [facility] [address] [place], [place] 970647 Assigned Musculoskeletal Provider 10/09/22 05/01/24 Alfonso Renteria MD [address] [facility] 200 [place], [place] 016806 Assigned Neuroscience Provider 04/02/23 Radha Lomeli APRN VOLUNTEER ASSISTANT 6[address] [facility] [address] [place] [address] Assigned Heart and Vascular Provider 05/28/23 Jelena David OD [address] [facility] [place] [id number] MD Ophthalmology 06/15/23 Pao Joseph, VJ Personal Advocate & Liaison (PAL) Nurse 08/01/23 11/07/23 Esha Grimm PA-C [address] [place] [phone] Assigned PCP 07/16/23 Valery Veronica PA-C [address] [place] [address] 906575 Physician Cleaner Touch Up Worker Dermatology 09/19/23 Rey Tay MD [address] [place] [address] 615565 Gastroenterology 09/20/23 Rocky Zepeda DO [address] [place] [address] 431105 Physician Gastroenterology 09/20/23 Philip Dumont MD [address] [place] [address] 681245 Physician Ophthalmology 09/22/23 Meredith Carrera PA-C [address] [place] [address] 187185 Assigned Gastroenterology Provider 11/01/23 Neil Kent MD [address] [place] [address] Dermatology 11/02/23 [place] [address] 578757 Neurological Surgery 12/26/23 Audrey Waite PAUcheC 500 [place] [address] Physician Cleaner Touch Up Worker Dermatology 02/28/24 Valery Veronica PAUcheC 113[address] [address] [place] [address] Physician Cleaner Touch Up Worker Dermatology 04/10/24 Herminia Hatch MD [address] [place] [address] Assigned Rheumatology Provider 07/02/24 documented as of this encounter
--- OUTSIDE RECORDS SUMMARY | 2024-08-28 19:11 | XMS_ITS | Encounter Summary ---
Author Organization [facility] Address [address] [place] [address] Care Team Providers Care Special Delivery Clerk Name Role Phone Diana Desir [facility] Unavailable Rain Galaviz PAUcheC Unavailable Tavia Wyatt MD Unavailable Erica Farrell SAGGER PREPARER BELT FIXER Unavailable Rich Barrett MD Unavailable [phone] Neil Kent MD Unavailable Kendrick Desirelle Stanislav [facility] Unavailable Livan Sharif MD Unavailable Catherine Cm MD Unavailable + Valery Veronica-C Unavailable Brea Quinn SAGGER PREPARER BELT FIXER Unavailable Alfonso Renteria MD Unavailable [phone] Esha GrimmC Primary Care Provider Radha Lomeli SAGGER PREPARER BELT FIXER Unavailable Jelena David OD Unavailable [place], Esha M PA-C Unavailable [phone] Valery Veronica PA-C Unavailable Rey Tay MD Unavailable Rocky Zepeda DO Unavailable Philip Dumont MD Unavailable Meredith Carrera PA-C Unavailable Neil Kent MD Unavailable Juan Pablo Emmanuel MD Unavailable [phone] Audrey Waite PA-C Unavailable [phone] Valery Veronica PA-C Unavailable Herminia Hatch MD [...] st Contact Info) Description 08/03/2024 2:45 PM PRICING STRATEGIST Office Visit [facility] [place] [address] [place] [phone] Jaron Hager PA-C [address] [place], [place] [phone] Abdominal discomfort (Primary Dx); Chest discomfort; Screen [...] How often do you attend chur or jehovah's witness services? 1 to 4 [...] PHQ-2 Score 1 [facility]2024 [facility] - [facility]ational [...] exercise at this level? 20 min 05/07/2024 [place] Depression Scale Answer Date Recorded [place] Depression Score 5 01/14/2021 Last EPDS Self [...] PM CDT Legal Sex Female 4:13 AM PRICING STRATEGIST Gender Identity Female 03/02/2021 5:45 PM CDT Sexual Orientation Straight 02/28/2020 12 :51 AM CDT documented as of this encounter Last Filed Vital Signs Vital Sign Reading Time Taken Comments Blood Pressure 102/66 08/03/2024 2:02 PM PRICING STRATEGIST Pulse 69 08/03/2024 2:02 PM PRICING STRATEGIST Temperature 36.9 C (98.4 F) 08/03/2024 2:02 PM PRICING STRATEGIST Respiratory Rate 18 08/03/2024 2:02 PM PRICING STRATEGIST Oxygen Saturation 98% 08/03/2024 2:02 PM PRICING STRATEGIST Inhaled Oxygen Concentration - - Weight 91.2 kg (201 lb) 08/03/2024 2:02 PM PRICING STRATEGIST Height - - Body Mass Index 32.44 05/31/2024 3:37 PM PRICING STRATEGIST documented in this encounter Progress Notes * [...] disease) Relevant Orders HIV Antigen Antibody Combo Juniata Treponema Abs w Reflex to RPR and [...] Negative Ketones Urine Negative Negative mg/dL Specific [place] Urine 1.010 1.003 - 1.035 Blood Urine [...] findings with the patient. The use of [employer] dictation services was used to construct the content of this note; any grammatical errors are non-intentional. Please contact the author directly if you are in need of any clarification. ING STRATEGIST documented in this encounter Plan of Treatment Upcoming Encounters Date Type Department Care Team (Late st Contact Info) Description 10/23/2024 9:30 AM CDT Office Visit [facility] Neurology [facility] [address] [facility], [address] [place] [address] [place] [address] [place] [address] Johnny Penn MD [address] [facility] [place] [phone] documented as of this encounter Procedures Procedure Name Priority Date/Time Associated Diagnosis Comments HIV ANTIGEN ANTIBODY COMBO Routine 08/03/2024 3:04 PM PRICING STRATEGIST Screen for STD (sexually transmitted disease) TREPONEMA ABS W REFLEX TO RPR AND TITER Routine 08/03/2024 3:04 PM PRICING STRATEGIST Screen for STD (sexually transmitted disease) HEPATITIS C ANTIBODY Routine 08/03/2024 3:04 PM PRICING STRATEGIST Screen for STD (sexually transmitted disease) HEPATITIS B CORE ANTIBODY Routine 08/03/2024 3:04 PM PRICING STRATEGIST Screen for STD (sexually transmitted disease) CHLAMYDIA TRACHOMATIS/NEISSERI A GONORRHOEAE BY PCR Routine 08/03/2024 2:28 PM PRICING STRATEGIST Abdominal discomfort WET PREPARATION Routine 08/03/2024 2:16 PM PRICING STRATEGIST Abdominal discomfort UA MACROSCOPIC WITH REFLEX TO MICRO AND CULTURE Routine 08/03/2024 2:15 PM PRICING STRATEGIST Abdominal discomfort EKG 12-LEAD COMPLETE W/READ - CLINICS Routine 08/03/2024 Chest discomfort documented in this encounter Results * Hepatitis B core antibody (08/03/2024 3:04 PM PRICING STRATEGIST) Hepatitis B Core Antibody Total Nonreactive Nonreactive 08/03/2024 8:55 PM PRICING STRATEGIST LABORATORY Comment:Nonreactive hepatiti s B core antibody test results indicate the absence of exposure to hepatitis B virus and no evidence of recent, past/resolved, or chronic hepatitis B. Blood BLOOD SPECIMEN / Unknown Venipuncture / Unknown 08/03/2024 3:04 PM PRICING STRATEGIST 08/03/2024 3:05 PM PRICING STRATEGIST Jaron Hager PA-C LAB - BLOOD ORDERABLES Final Result Performing Organization Address [facility]/ZIP Co de Phone Number LABORATORY [facility] [place] [facility] [address] [facility], [address] * Hepatitis C antibody (08/03/2024 3:04 PM PRICING STRATEGIST) Hepatitis C Antibody Nonreactive Nonreactive 08/03/2024 8:55 PM PRICING STRATEGIST LABORATORY Comment:A nonreactive screen ing test result [...] Unknown Venipuncture / Unknown 08/03/2024 3:04 PM PRICING STRATEGIST 08/03/2024 3:05 PM PRICING STRATEGIST Jaron Hager PA-C LAB - BLOOD ORDERABLES Final Result Performing Organization Address City/[facility]/ZIP Co de Phone Number [facility] [place] [facility] [address] [facility], [address] * Treponema Abs w Reflex to RPR and Titer (08/03/2024 3:04 PM PRICING STRATEGIST) Treponema Antibody Total Nonreactive Nonreactive 08/04/2024 10:06 AM PRICING STRATEGIST SPECIALTY CORE/PROT/EN DO Blood BLOOD SPECIMEN / Unknown Venipuncture / Unknown 08/03/2024 3:04 PM PRICING STRATEGIST 08/03/2024 3:05 PM PRICING STRATEGIST Jaron Hager PA-C LAB - BLOOD ORDERABLES Final Result SPECIALTY CORE/PROT/ENDO Specialty Core/Prot/Endo [address] [facility], [address] * HIV Antigen Antibody Combo Juniata (08/03/2024 3:04 PM PRICING STRATEGIST) HIV Antigen Antibody Combo Nonreactive Nonreactive 08/03/2024 9:29 PM PRICING STRATEGIST [facility] Comment:Negative HIV-1 p24 a ntigen [...] Unknown Venipuncture / Unknown 08/03/2024 3:04 PM PRICING STRATEGIST 08/03/2024 3:05 PM PRICING STRATEGIST Jaron Hager PA-C LAB - BLOOD ORDERABLES Final Result Performing Organization Address City/[facility] Co de Phone Number LABORATORY [facility] [place] [facility] [address] [facility], [address] * Chlamydia trachomatis/Neisseria gonorrhoeae by PCR (08/03/2024 2:28 PM PRICING STRATEGIST) Pathologist [facility] Chlamydia Trachomatis Negative Negative 08/04/2024 11:14 AM PRICING STRATEGIST [facility] Comment: Negative for C. trachomatis rRNA by corrections corporal mediated amplification. A negative result by corrections corporal mediated amplification does not preclude the presence of infection because results are dependent on proper and adequate collection, absence of inhibitors and sufficient rRNA to be detected. Neisseria gonorrhoeae Negative Negative 08/04/2024 11:14 AM PRICING STRATEGIST [facility] Comment:Negative for N. gono rrhoeae rRNA by corrections corporal mediated amplification. A negative result by corrections corporal mediated amplification does not preclude the presence of C. trachomatis infection because results are dependent on proper and adequate collection, absence of inhibitors and sufficient rRNA to be detected. CTNG Specimen Source Vagina 08/04/2024 11:14 AM PRICING STRATEGIST [facility] Swab VAGINAL STRUCTURE / Unknown Non-blood Collection / Unknown 08/03/2024 2:28 PM PRICING STRATEGIST 08/03/2024 2:28 PM PRICING STRATEGIST Mani Gentile MD LAB - MICRO GENERAL ORDERABLES F inal Result [facility] LABORATORY [facility] Inf. Diseases Diag. Lab [address] [facility], [address] [place] [address] * (ABNORMAL) Wet preparation (08/03/2024 2:16 PM PRICING STRATEGIST) Trichomonas Absent Absent REINA 08/03/2024 2:22 PM PRICING STRATEGIST LABORATORY Yeast Absent Absent REINA 08/03/2024 2:22 PM PRICING STRATEGIST LABORATORY Clue Cells Absent Absent REINA 08/03/2024 2:22 PM PRICING STRATEGIST LABORATORY WBCs/high power field 2+(A) None REINA 08/03/2024 2:22 PM PRICING STRATEGIST LABORATORY Swab VAGINAL STRUCTURE / Unknown Non-blood Collection / Unknown 08/03/2024 2:16 PM PRICING STRATEGIST 08/03/2024 2:16 PM PRICING STRATEGIST us Mani Gentile MD LAB - MICRO GENERAL ORDERABLES F inal Result LABORATORY [facility] [place] [facility] [address] [place] [address] (no room number, 1st floor of clinic) [place] [address] * UA Macroscopic with reflex to Microscopic and Culture (08/03/2024 2:15 PM PRICING STRATEGIST) Color Urine Yellow Colorless, Straw, Light Yellow, Yellow 08/03/2024 2:20 PM PRICING STRATEGIST LABORATORY Appearance Urine Clear Clear 08/03/19 2:20 PM PRICING STRATEGIST [facility] Glucose Urine Negative Negative mg/dL 08/03/2024 2:20 PM PRICING STRATEGIST [facility] Bilirubin Urine Negative Negative 2:20 PM PRICING STRATEGIST [facility] Ketones Urine Negative Negative mg/dL 08/03/2024 2:20 PM PRICING STRATEGIST [facility] Specific [place] Urine 1.010 1.003 - 1.035 08/03/2024 2:20 PM PRICING STRATEGIST [facility] Blood Urine Negative Negative 08/03/2024 2:20 PM PRICING STRATEGIST [facility] pH Urine 7.0 5.0 - 7.0 08/03/2024 2:20 PM PRICING STRATEGIST [facility] Protein Albumin Urine Negative Negative mg/dL 08/03/2024 2:20 PM PRICING STRATEGIST [facility] Urobilinogen Urine 0.2 0.2, 1.0 E.U./dL 08/03/2024 2:20 PM PRICING STRATEGIST [facility] Nitrite Urine Negative Negative 08/03/2024 2:20 PM PRICING STRATEGIST [facility] Leukocyte Esterase Urine Negative Negative 08/03/2024 2:20 PM PRICING STRATEGIST LABORATORY Urine URINE SPECIMEN OBTAINED BY CLEAN CATCH PROCEDURE / Unknown Non-blood Collection / Unknown 08/03/2024 2:15 PM PRICING STRATEGIST 08/03/2024 2:15 PM PRICING STRATEGIST Narrative [facility] - 08/03/2024 2:20 PM PRICING STRATEGIST Microscopic not indicated us Mani Gentile MD LAB - URINE ORDERABLES Final Res ult LABORATORY [facility] [place] [facility] [address] [facility] (no room number, 1st floor of clinic) [place] [address] * EKG 12-lead complete w/read [...] as of this encounter Care Teams Special Delivery Clerk Relationship Specialty Start Date End Date Esha Grimm PA-C [address] [facility] [address] PCP - General Family Medicine 05/04/23 Diana Desir, [facility] [address] [place] [address] Pharmacist Pharmacist 04/17/21 Rain Galaviz PA-C [address] [place] [address] [address] [place] [address] Physician Manager Life Dermatology 04/28/21 Tavia Wyatt MD [address] [place] [address] [address] [place] [address] Dermatology 07/14/21 Erica Farrell APRN BELT FIXER [address] [id number] [place] [address] Nurse Practitioner Cardiovascular Disease 09/09/21 Rich Barrett MD [address] [facility] [address] [place], [place] [address]95 Physician Ophthalmology 01/21/22 Neil Kent MD 500 [place], [place] 97[address] Dermatology 02/24/22 Diana Desir, [facility] [address] [place] [address] Assigned MTM Pharmacist 04/07/22 Livan Sharif MD [address] [facility] [address] [place] [address] Cardiovascular Disease 05/14/22 Catherine Cm MD [address] [facility] [address] [place] [address] Cardiovascular Disease 07/21/22 Valery Veronica PA-C [address] [place], [place] 161795 Physician Manager Life Dermatology 07/21/22 Brea Quinn APRN BELT FIXER [address] [place], [place] 911545 Nurse Practitioner Dermatology 09/21/22 Alfonso Renteria MD [address] [facility] 200 [place], [place] 6[address]106 Assigned Neuroscience Provider 04/02/23 Radha Lomeli APRN BELT FIXER [address] [place] [address] Assigned Heart and Vascular Provider 05/28/23 Jelena David OD [address] [place] [address] Ophthalmology 06/15/23 Esha Grimm PA-C [address] [place] [address] Assigned PCP 07/16/23 Valery Veronica PA-C [address] [place] [address] Physician Manager Life Dermatology 09/19/23 Rey Tay MD [address] [place] [address] MD Gastroenterology 09/20/23 Rocky Zepeda DO 500 [place] [address] Physician Gastroenterology 09/20/23 Philip Dumont MD [address] [place] [address] Physician Ophthalmology 09/22/23 Meredith Carrera PA-C [address] [place] [address] Assigned Gastroenterology Provider 11/01/23 Neil Kent MD [address] [address] Dermatology 11/02/23 [place] [address] [address] Neurological Surgery 12/26/23 Audrey Waite PA-C [address] [place] [address] Physician Manager Life Dermatology 02/28/24 Valery Veronica PA-C 668114 [address] [place] [address] Physician Manager Life Dermatology 04/10/24 Herminia Hatch MD [address] [place] [address] [id number] Assigned Rheumatology Provider 07/02/24 documented as of this encounter
--- OUTSIDE RECORDS SUMMARY | 2024-08-28 19:11 | XMS_ITS | Encounter Summary ---
Author Organization [facility] Address [address] [place] [address] Care Team Providers Care Edge Grinder Machine Name Role Phone Diana Desir [facility] Unavailable Rain Galaviz PAUcheC Unavailable Tavia Wyatt MD Unavailable Erica Farrell CALL CENTER RECEPTIONIST PRESIDENT PRACTICING UROLOGIST Unavailable Rich Barrett MD Unavailable [phone] Neil Kent MD Unavailable Kendrick Desirelle Stanislav [facility] Unavailable Livan Sharif MD Unavailable Catherine Cm MD Unavailable + Valery Veronica-C Unavailable Brea Quinn CALL CENTER RECEPTIONIST PRESIDENT PRACTICING UROLOGIST Unavailable Alfonso Renteria MD Unavailable [phone] Esha GrimmC Primary Care Provider Radha Lomeli CALL CENTER RECEPTIONIST PRESIDENT PRACTICING UROLOGIST Unavailable Jelena David OD Unavailable [phone] Esha Grimm PA-C Unavailable [phone] Valery VeronicaC Unavailable [phone] Rey Tay MD Unavailable Rocky Zepeda DO Unavailable Philip Dumont MD Unavailable [phone] Meredith CarreraC Unavailable [phone] Neil Kent MD Unavailable Juan Pablo Emmanuel MD Unavailable [phone] Audrey WaiteC Unavailable [phone] Valery VeronicaC Unavailable [phone] Herminia Hatch MD Unavailable Encounter Details Date [...] Answer Date Recorded PHQ-2 Score 1 02/07/2024 [facility] - Occupational Stress Questionnaire Answer Date [...] exercise at this level? 20 min 05/07/2024 [place] Depression Scale Answer Date Recorded [place] [...] PM CDT Legal Sex Female 4:13 AM EMR TRAINER Gender Identity Female 03/02/2021 5:45 PM CDT Sexual Orientation Straight 02/28/2020 12 :51 AM CDT documented as of this encounter Plan of Treatment Upcoming Encounters Date Type Department Care Team (Late st Contact Info) Description 10/23/2024 9:30 AM CDT Office Visit [facility] Neurology [address], [address] [place] [address] [place] [address] [place] [address] Johnny Penn MD [address] [facility] [place] [id number] documented as of this encounter Visit Diagnoses Not on filedocumented in this encounter Additional Health Concerns Assessment Noted Time PHQ-9 Depression Total Score: 3 02/07/20 24 9:33 AM CDT documented as of this encounter Care Teams Edge Grinder Machine Relationship Specialty Start Date End Date Esha Grimm PA-C [address] [place] [address] PCP - General Family Medicine 05/04/23 Diana Desir, [facility] [address] [place] [address] Pharmacist Pharmacist 04/17/21 Rain Galaviz PA-C [address] [place] [address] [address] [place] [address] Physician Production Department Supervisor Dermatology 04/28/21 Tavia Wyatt MD [address] [place] [address] [address] [place] [address] Dermatology 07/14/21 Erica Farrell APRN PRESIDENT PRACTICING UROLOGIST [address] [place] [address]84[address] Nurse Practitioner Cardiovascular Disease 09/09/21 Rich Barrett MD [address] [facility] [address] [place], [place] [address] Physician Ophthalmology 01/21/22 Neil Kent MD 500 [place], [place] 0[address] Dermatology 02/24/22 [facility] [address] [place] [address] Assigned MTM Pharmacist 04/07/22 Livan Sharif MD [address] [place] [address] Cardiovascular Disease 05/14/22 Catherine Cm MD [address] [place] [address] Cardiovascular Disease 07/21/22 Valery Veronica PA-C [address] [place] [address] 347865 Physician Production Department Supervisor Dermatology 07/21/22 Brea Quinn APRN PRESIDENT PRACTICING UROLOGIST [address] [place] [address] 549395 Nurse Practitioner Dermatology 09/21/22 Alfonso Renteria MD 5775 [facility] 200 [place], [place] [address]286 Assigned Neuroscience Provider 04/02/23 Radha Lomeli APRN PRESIDENT PRACTICING UROLOGIST [address] [place] [address] Assigned Heart and Vascular Provider 05/28/23 Jelena David OD [address] [place] [address] [place] [address] Ophthalmology 06/15/23 Esha Grimm PA-C [address] [place] [address] Assigned PCP 07/16/23 Valery Veronica PA-C [address] [place] [address] 744015 Physician Production Department Supervisor Dermatology 09/19/23 Rey Tay MD [address] [place] [address] Gastroenterology 09/20/23 Rocky Zepeda DO 500 [place] [address] Physician Gastroenterology 09/20/23 Philip Dumont MD 516 [place] [address] Physician Ophthalmology 09/22/23 Meredith Carrera PA-C 909 [place] [address] Assigned Gastroenterology Provider 11/01/23 Neil Kent MD [address] [address] MD Dermatology 11/02/23 [place] [address] 261397 Neurological Surgery 12/26/23 Audrey Waite PA-C 500 [place] [address] Physician Production Department Supervisor Dermatology 02/28/24 Valery Veronica PA-C 762163 [address] [address] Physician Production Department Supervisor Dermatology 04/10/24 Herminia Hatch MD [facility]5 [place], [place] [id number] Assigned Rheumatology Provider 07/02/24 documented as of this encounter
--- OUTSIDE RECORDS SUMMARY | 2024-08-28 19:11 | XMS_ITS | Encounter Summary ---
Author Organization [facility] Address [address] [place] [address] Care Team Providers Care Home Health Care Respiratory Therapist Name Role Phone Diana Desir [facility] Unavailable Rain Galaviz PAUcheC Unavailable Tavia Wyatt MD Unavailable Erica Farrell REGRINDER COMBAT SYSTEMS OPERATOR [facility] [facility] Unavailable Rich Barrett MD Unavailable [phone] Neil [place] MD Unavailable Kendrick Desirelle Stanislav [facility] Unavailable Livan Sharif MD Unavailable Catherine mC MD Unavailable + Valery Veronica-C Unavailable [phone] Brea Quinn REGRINDER COMBAT SYSTEMS OPERATOR [facility] [facility] Unavailable Alfonso Renteria MD Unavailable [phone] Esha GrimmC Primary Care Provider [phone] Radha Lomeli REGRINDER COMBAT SYSTEMS OPERATOR [employer] Unavailable Jelena David OD Unavailable [place], Esha M PA-C Unavailable [phone] Valery Veronica PA-C Unavailable Rey Tay MD Unavailable Rocky Zepeda DO Unavailable Philip Dumont MD Unavailable [phone] Meredith Carrera PA-C Unavailable [phone] Neil [place] MD Unavailable Juan Pablo Emmanuel MD Unavailable Audrey Waite PA-C Unavailable [phone] Valery Veronica PA-C Unavailable [phone] Herminia Hatch MD Unavailable Reason for Visit * Reason Comments Palpitations Encounter Details Date Type Department Care Team (Late st Contact Info) Description 08/27/2024 9:06 PM CHANGE BOOTH ATTENDANT - 08/27/2024 10:09 PM CHANGE BOOTH ATTENDANT Emergency [facility] Emergency Dept [address] [place] [address] Fady Vega MD [facility] [address] [place] [address] Palpitations Discharge Disposition: Home or Self Care [...] week 05/07/2024 How often do you attend [facility]? 1 to 4 times [...] PHQ-2 Score 1 02/07/2024 [facility] [...] exercise at this level? 20 min 05/07/2024 [place] Depression Scale Answer Date Recorded [...] CDT Legal Sex Female 4:13 AM CHANGE BOOTH ATTENDANT Gender Identity Female 03/02/2021 5:45 PM CDT Sexual Orientation Straight 02/28/2020 12 :51 AM CDT documented as of this encounter Last Filed Vital Signs Vital Sign Reading Time Taken Comments Blood Pressure 112/61 08/27/2024 10:08 PM CHANGE BOOTH ATTENDANT Pulse 82 08/27/2024 10:08 PM CHANGE BOOTH ATTENDANT Temperature 36.7 C (98.1 F) 08/27/2024 8:38 PM CHANGE BOOTH ATTENDANT Respiratory Rate 18 08/27/2024 8:38 PM CHANGE BOOTH ATTENDANT Oxygen Saturation 98% 08/27/2024 10: 08 PM CHANGE BOOTH ATTENDANT Inhaled Oxygen Concentration - - Weight 93.4 kg (205 lb 14.6 oz) 08/27/2024 8:38 PM CHANGE BOOTH ATTENDANT Height 167.6 cm (5' 6) 08/27/2024 8:38 PM CHANGE BOOTH ATTENDANT Body Mass Index 33.23 08/27/2024 8:38 PM CHANGE BOOTH ATTENDANT documented in this encounter Discharge Instructions * Attachments The following attachments cannot be sent through Care Everywhere. * Palpitations (Guamanian) documented in this encounter Medications at Time [...] Pressure Ventricular Rate 80 Atrial Rate 80 MT Interval 152 QRS Duration 94 QT 370 QTc 426 P Kamas 52 R AXIS 68 T Kamas 53 Interpretation ECG Sinus rhythm Normal ECG [...] Documentation None Medical Decision Making / Diagnosis [facility] Diagnoses: None MIPS None [facility] Kim Johnson is a 24 year [...] to me. Fady Vega MD 08/28/24 0025 GE BOOTH ATTENDANT * Alisia Giles RN - 08/27/2024 8:37 [...] WDL WDL Cognitive/Neuro/Behavioral WDL Cognitive/Neuro/Behavioral WDL WDL GE BOOTH ATTENDANT documented in this encounter Plan of Treatment Upcoming Encounters Date Type Department Care Team (Late st Contact Info) Description 10/23/2024 9:30 AM CDT Office Visit [facility] Neurology [facility] - [address], [address] [place] [address] [place] [address] [place] [place] [address] Johnny Penn MD [address] [place], [place] [address] documented as of this encounter Procedures Procedure Name Priority Date/Time Associated Diagnosis Comments EXTRA TUBE STAT 08/27/2024 9:19 PM CHANGE BOOTH ATTENDANT EXTRA RED TOP TUBE STAT 08/27/2024 9: 19 PM CHANGE BOOTH ATTENDANT EXTRA BLUE TOP TUBE STAT 08/27/2024 9 :19 PM CHANGE BOOTH ATTENDANT CBC WITH PLATELETS AND DIFFERENTIAL STAT 08/27/2024 9:19 PM CHANGE BOOTH ATTENDANT TROPONIN T, HIGH SENSITIVITY STAT 08/27/2024 9:19 PM CHANGE BOOTH ATTENDANT CBC WITH PLATELETS & DIFFERENTIAL STAT 08/27/2024 9:19 PM CHANGE BOOTH ATTENDANT BASIC METABOLIC PANEL STAT 08/27/2024 9:19 PM CHANGE BOOTH ATTENDANT EKG 12-LEAD, TRACING ONLY STAT 08/27/2024 8:48 PM CHANGE BOOTH ATTENDANT documented in this encounter Results * (ABNORMAL) CBC with platelets and differential (08/27/2024 9:19 PM CHANGE BOOTH ATTENDANT) WBC Count 8.7 4.0 - 11.0 10e3/uL 08/27/2024 9:26 PM CHANGE BOOTH ATTENDANT [facility] RBC Count 4.59 3.80 - 5.20 10e6/uL 08/27/2024 9:26 PM CHANGE BOOTH ATTENDANT [facility] Hemoglobin 11.7 11.7 - 15.7 g/dL 08/27/2024 9:26 PM CHANGE BOOTH ATTENDANT [facility] Hematocrit 36.7 35.0 - 47.0 % 08/27/2024 9:26 PM CHANGE BOOTH ATTENDANT [facility] MCV 80 78 - 100 fL 08/27/2024 9:26 PM CHANGE BOOTH ATTENDANT [facility] MCH 25.5(L) 26.5 - 33.0 pg 08/27/2024 9:26 PM CHANGE BOOTH ATTENDANT [facility] MCHC 31.9 31.5 - 36.5 g/dL 08/27/2024 9:26 PM CHANGE BOOTH ATTENDANT [facility] RDW 12.6 10.0 - 15.0 % 08/27/2024 9:26 PM CHANGE BOOTH ATTENDANT [facility] Platelet Count 252 150 - 450 10e3/uL 08/27/2024 9:26 PM CHANGE BOOTH ATTENDANT [facility] % Neutrophils 64 % 08/27/2024 9:26 PM CHANGE BOOTH ATTENDANT [facility] % Lymphocytes 26 % 08/27/2024 9:26 PM CHANGE BOOTH ATTENDANT [facility] % Monocytes 6 % 08/27/2024 9:26 PM CHANGE BOOTH ATTENDANT [facility] % Eosinophils 4 % 08/27/2024 9:26 PM CHANGE BOOTH ATTENDANT [facility] % Basophils 1 % 08/27/2024 9:26 PM CHANGE BOOTH ATTENDANT [facility] % Immature Granulocytes 0 % 08/27/2024 9:26 PM CHANGE BOOTH ATTENDANT [facility] NRBCs per 100 WBC 0 <1 /100 025 9:26 PM CHANGE BOOTH ATTENDANT LABORATORY Absolute Neutrophils 5.5 1.6 - 8.3 10e3/uL 08/27/2024 9:26 PM CHANGE BOOTH ATTENDANT [facility] Absolute Lymphocytes 2.3 0.8 - 5.3 10e3/uL 08/27/2024 9:26 PM CHANGE BOOTH ATTENDANT [facility] Absolute Monocytes 0.5 0.0 - 1.3 10e3/uL 08/27/2024 9:26 PM CHANGE BOOTH ATTENDANT [facility] Absolute Eosinophils 0.3 0.0 - 0.7 10e3/uL 08/27/2024 9:26 PM CHANGE BOOTH ATTENDANT LABORATORY Absolute Basophils 0.1 0.0 - 0.2 10e3/uL 08/27/2024 9:26 PM CHANGE BOOTH ATTENDANT LABORATORY Absolute Immature Granulocytes 0.0 <=0.4 10e3/uL 08/27/2024 9:26 PM CHANGE BOOTH ATTENDANT [facility] Absolute NRBCs 0.0 10e3/uL 08/27/2024 9:26 PM CHANGE BOOTH ATTENDANT [facility] Blood STRUCTURE OF RIGHT UPPER LIMB / Unknown Venipuncture / Unknown 08/27/2024 9:19 PM CHANGE BOOTH ATTENDANT 08/27/2024 9:23 PM CHANGE BOOTH ATTENDANT us Fady Vega MD LAB - BLOOD ORDERABLES Fi nal Result [facility] Acute Care Lab [address] Lab (1st floor, no room number) [place] [address] * Extra Red Top Tube (08/27/2024 9:19 PM CHANGE BOOTH ATTENDANT) Hold Specimen [facility] 08/27/2024 10:31 PM CHANGE BOOTH ATTENDANT LABORATORY Blood STRUCTURE OF RIGHT UPPER LIMB / Unknown Venipuncture / Unknown 08/27/2024 9:19 PM CHANGE BOOTH ATTENDANT 08/27/2024 9:23 PM CHANGE BOOTH ATTENDANT Fady Vega MD LAB - BLOOD ORDERABLES Fi nal Result [facility] Care Lab [address] Lab (1st floor, no room number) [place] [phone] * Extra Blue Top Tube (08/27/2024 9:19 PM CHANGE BOOTH ATTENDANT) Hold Specimen [facility] 08/27/2024 10:31 PM CHANGE BOOTH ATTENDANT LABORATORY Blood STRUCTURE OF RIGHT UPPER LIMB / Unknown Venipuncture / Unknown 08/27/2024 9:19 PM CHANGE BOOTH ATTENDANT 08/27/2024 9:23 PM CHANGE BOOTH ATTENDANT Fady Vega MD LAB - BLOOD ORDERABLES Fi nal Result [facility] Acute Care Lab [address] Lab (1st floor, no room number) [place] [phone] [place] [address] * Troponin T, High Sensitivity (08/27/2024 9:19 PM CHANGE BOOTH ATTENDANT) Troponin T, High Sensitivity <6 <=14 ng/L 08/27/2024 9:54 PM CHANGE BOOTH ATTENDANT LABORATORY Comment: Either a High Sensitivity Troponin [...] Unknown Venipuncture / Unknown 08/27/2024 9:19 PM CHANGE BOOTH ATTENDANT 08/27/2024 9:23 PM CHANGE BOOTH ATTENDANT us Fady Vega MD LAB - BLOOD ORDERABLES Fi nal Result LABORATORY [facility] Acute Care Lab [address] [facility] Lab (1st floor, no room number) [place] [address], [facility] * Basic metabolic panel (BMP) (08/27/2024 9:19 PM CHANGE BOOTH ATTENDANT) Sodium 137 135 - 145 mmol/L 08/27/2024 9:54 PM [facility] Potassium 3.9 3.4 - 5.3 mmol/L 08/27/2024 9:54 PM [facility] Chloride 103 98 - 107 mmol/L 08/27/2024 9:54 PM [facility] Carbon Dioxide (CO2) 23 22 - 29 mmol/L 08/27/2024 9:54 PM [facility] Anion Gap 11 7 - 15 mmol/L 08/27/2024 9:54 PM [facility] Urea Nitrogen 12.9 6.0 - 20.0 mg/dL 08/27/2024 9:54 PM [facility] Creatinine 0.68 0.51 - 0.95 mg/dL 08/27/2024 9:54 PM [facility] GFR Estimate >90 >60 mL/min/1.7 3m2 08/27/2024 9:54 PM [facility] Comment:eGFR calculated usin 2020 CKD-EPI equation. Calcium 9.1 8.8 - 10.4 mg/dL 08/27/2024 9:54 PM [facility] Glucose 86 70 - 99 mg/dL 08/27/2024 9:54 PM [facility] Blood STRUCTURE OF RIGHT UPPER LIMB / Unknown Venipuncture / Unknown 08/27/2024 9:19 PM CHANGE BOOTH ATTENDANT 08/27/2024 9:23 PM CHANGE BOOTH ATTENDANT Fady Vega MD LAB - BLOOD ORDERABLES Fi nal Result [facility] Acute Care Lab [address] Lab (1st floor, no room number) [place] [address] * EKG 12 lead (08/27/2024 8:48 PM CHANGE BOOTH ATTENDANT) Systolic Blood Pressure mmHg RADIOLOGY RESULTS Diastolic Blood Pressure mmHg RADIOLOGY RESULTS Ventricular Rate 80 BPM RAD IOLOGY RESULTS Atrial Rate 80 BPM RADIOLOG Y RESULTS MT Interval 152 ms RADIOLOG Y RESULTS QRS Duration 94 ms RADIOLO GY RESULTS QT 370 ms RADIOLOGY RESULTS QTc 426 ms RADIOLOGY RESULTS P Kamas 52 degrees RADIOLOGY RESULTS R AXIS 68 degrees RADIOLOGY RESULTS T Kamas 53 degrees RADIOLOGY RESULTS Interpretation ECG Sinus rhythm Normal ECG When compared with ECG of 07-Apr-2024 03:06, No significant change was found Confirmed by - EMERGENCY ROOM, PHYSICIAN ([id number]), offline editor RENITA MANZO ([id number]) on 08/28/2024 7:15:42 AM RADIOLOGY RESULTS 08/27/2024 8:48 PM CHANGE BOOTH ATTENDANT 08/28/2024 7:15 AM CHANGE BOOTH ATTENDANT Fady Vega MD ECG ORDERABLES Edited Re sult - Final RADIOLOGY RESULTS documented in this encounter Visit Diagnoses Diagnosis Palpitations documented in this encounter Additional Health Concerns Assessment Noted Time PHQ-9 Depression Total Score: 3 02/07/20 24 9:33 AM CDT documented as of this encounter Care Teams Home Health Care Respiratory Therapist Relationship Specialty Start Date End Date Esha Grimm PA-C [address] [place] [address] PCP - General Family Medicine 05/04/23 Diana Desir, [facility] [address] [place] [address] Pharmacist Pharmacist 04/17/21 Rain Galaviz PA-C [address] [place] [address] [address] [place] [address] Physician Reserves Clerk Dermatology 04/28/21 Tavia Wyatt MD [address] [place] [address] [address] [place] [facility] [place] [address] Dermatology 07/14/21 Erica Farrell APRN COMBAT SYSTEMS OPERATOR [employer] [facility] [address] [place], [place] [address] Nurse Practitioner Cardiovascular Disease 09/09/21 Rich Barrett MD [address] [place] [address], [facility] [address] [place], [place] [address] Physician Ophthalmology 01/21/22 Neil Kent MD [address] [place] [address] Dermatology 02/24/22 [facility] [address] [place] [address] Assigned MTM Pharmacist 04/07/22 Livan Sharif MD [address], [facility] [address] [place] [address] Cardiovascular Disease 05/14/22 Catherine Cm MD [address] [facility] [address] [place] [address] Cardiovascular Disease 07/21/22 Valery Veronica PA-C [address] [place] [address] Physician Reserves Clerk Dermatology 07/21/22 Brea Quinn APRN COMBAT SYSTEMS OPERATOR [employer] [address] [place] [address]115 Nurse Practitioner Dermatology 09/21/22 Alfonso Renteria MD 57[address] [facility] 200 [place], [place] [address] Assigned Neuroscience Provider 04/02/23 Radha Lomeli APRN COMBAT SYSTEMS OPERATOR [employer] [address] [facility] [address] [place] [address] Assigned Heart and Vascular Provider 05/28/23 Jelena David OD [address] [place] [address] Ophthalmology 06/15/23 Esha Grimm PA-C [address] [place] [address] Assigned PCP 07/16/23 Valery Veronica PA-C [address] [place] [address] Physician Reserves Clerk Dermatology 09/19/23 Rey Tay MD [address] [place] [address]18[address] MD Gastroenterology 09/20/23 Rocky Zepeda DO [address] [place], [place] [address] Physician Gastroenterology 09/20/23 Philip Dumont MD [address] [place] [address] Physician Ophthalmology 09/22/23 Meredith Carrera PA-C [address] [place], [place] [address] Assigned Gastroenterology Provider 11/01/23 Neil Kent MD [address] [address] MD Dermatology 11/02/23 [place] [address] [place] [address] [address] Neurological Surgery 12/26/23 Audrey Waite PA-C [address] [place] [address] Physician Reserves Clerk Dermatology 02/28/24 Valery Veronica PA-C [address]39 [address] [place] [address] Physician Reserves Clerk Dermatology 04/10/24 Herminia Hatch MD [facility]5 [place] [address] Assigned Rheumatology Provider 07/02/24 documented as of this encounter
--- OUTSIDE RECORDS SUMMARY | 2024-08-28 19:11 | XMS_ITS | Encounter Summary ---
Author Organization [place] Address [address] [place] [address] Care Team Providers Care Client Services Representative Name Role Phone Diana Desir [facility] Unavailable Rain Galaviz PA-C Unavailable Tavia Wyatt MD Unavailable Erica Farrell APRN FACILITIES MAINTENANCE SUPERVISOR Unavailable iRch Barrett MD Unavailable [phone] Neil Kent MD Unavailable Diana Desir [facility] Unavailable Livan Sharif MD Unavailable Catherine Cm MD Unavailable + Valery Veronica PA-C Unavailable [phone] Brea Quinn VACUUM WORKER FACILITIES MAINTENANCE SUPERVISOR Unavailable Brea Quinn VACUUM WORKER FACILITIES MAINTENANCE SUPERVISOR Unavailable [phone] Jose Francisco Johnson MD Unavailable Alfonso Renteria MD Unavailable [phone] Esha Grimm PA-C Primary Care Provider Radha Lomeli APRN FACILITIES MAINTENANCE SUPERVISOR Unavailable Jelena David OD Unavailable [phone] Pao Joseph RN Unavailable Unavailable Esha Grimm PA-C Unavailable [phone] Valery Veronica PA-C Unavailable [phone] Rey Tay MD Unavailable Rocky Zepeda DO Unavailable Philip Dumont MD Unavailable [phone] Meredith Carrera PA-C Unavailable [phone] Neil Kent MD Unavailable Juan Pablo Emmanuel MD Unavailable Audrey Waite PA-C Unavailable [phone] Valery Veronica PA-C Unavailable [phone] Herminia Hatch MD Unavailable Encounter Details Date Type Department Care Team (Late st Contact Info) Description 08/25/2023 [facility] [address] [address] [facility] [address] [place] [address] Social History Tobacco Use Types Packs/Day Years [...] often do you attend [facility] or druze services? 1 to 4 times [...] 06/20/2023 [facility]ational Stress Questionnaire Answer [...] exercise at this level? 30 min 03/10/2023 [place] Depression Scale Answer Date Recorded [place] Depression Score 5 01/14/2021 Last EPDS Self [...] PM CDT Legal Sex Female 4:13 AM CELLULOSE INSULATION HELPER Gender Identity Female 03/02/2021 5:45 PM CDT Sexual Orientation Straight 02/28/2020 12 :51 AM CDT documented as of this encounter Plan of Treatment Upcoming Encounters Date Type Department Care Team (Late st Contact Info) Description 10/23/2024 9:30 AM CDT Office Visit [facility] [address], [address] [place] [address] [place] [address] [place] [address] Johnny Penn MD [address] [place] [address] documented as of this encounter Visit Diagnoses Not on filedocumented in this encounter Additional Health Concerns Infection Onset Date Last Indicated Resolved Time Rule Out COVID-19 12/26/2023 12/26/2023 12/26/2023 9:50 AM CDT Rule Out COVID-19 04/09/2024 04/09/2024 04/10/2024 6:48 PM CDT Assessment Noted Time PHQ-9 Depression Total Score: 4 06/20/20 23 8:40 AM CELLULOSE INSULATION HELPER documented as of this encounter Care Teams Client Services Representative Relationship Specialty Start Date End Date Esha Grimm PA-C [address] [place] [address] PCP - General Family Medicine 05/04/23 Diana Desir, [facility] [address] [place] [address] Pharmacist Pharmacist 04/17/21 Rain Galaviz PA-C [address] [place] [address] [address] [place] [address] Physician Construction Job Cost Estimator Dermatology 04/28/21 Tavia Wyatt MD [address] [place] [address] [address] [place] [address] Dermatology 07/14/21 Erica Farrell APRN FACILITIES MAINTENANCE SUPERVISOR [address] [facility] [address] [place] [address] Nurse Practitioner Cardiovascular Disease 09/09/21 Rich Barrett MD [address] [place] [address] 215875 Physician Ophthalmology 01/21/22 Neil Kent MD [address] [place] [address] Dermatology 02/24/22 [facility] [address] [place] [address] Assigned [place] Pharmacist 04/07/22 Livan Sharif MD [address] [place] 77[address]300 [place] [address] Cardiovascular Disease 05/14/22 Catherine Cm MD [address] [address] Cardiovascular Disease 07/21/22 Valery Veronica, PAUcheC 909 [place] [address] Physician Construction Job Cost Estimator Dermatology 07/21/22 Brea Quinn APRN FACILITIES MAINTENANCE SUPERVISOR 500 [place] [address] Nurse Practitioner Dermatology 09/21/22 Brea Quinn APRN FACILITIES MAINTENANCE SUPERVISOR [address] [place] [address] Assigned Surgical Provider 10/09/22 05/01/24 [place] [address] [address] Assigned Musculoskeletal Provider 10/09/22 05/01/24 lAfonso Renteria MD 5704 [facility] 200 [place] [address] Assigned Neuroscience Provider 04/02/23 Radha Lomeli APRN FACILITIES MAINTENANCE SUPERVISOR [address] [place] [address] Assigned Heart and Vascular Provider 05/28/23 Jelena David OD [address] [facility] [place] [address] Ophthalmology 06/15/23 Pao Joseph, VJ Personal Advocate & Liaison (PAL) Nurse 08/01/23 11/07/23 Esha Grimm PA-C [address] [place] [address] Assigned PCP 07/16/23 Valery Veronica PA-C [address] [place] [address] 750255 Physician Construction Job Cost Estimator Dermatology 09/19/23 Rey Tay MD [address] [place] [address] Gastroenterology 09/20/23 Rocky Zepeda DO [address] [place] [address]2005 Physician Gastroenterology 09/20/23 Philip Dumont MD [address] [place] [address] 087135 Physician Ophthalmology 09/22/23 Meredith Carrera PA-C [address] [place] [address] Assigned Gastroenterology Provider 11/01/23 Neil Kent MD [address] [address] Dermatology 11/02/23 [place] [address] [address] Neurological Surgery 12/26/23 Audrey Waite PA-C 500 [place] [address] Physician Construction Job Cost Estimator Dermatology 02/28/24 Valery Veronica PA-C 272303 [place], [place] [address] Physician Construction Job Cost Estimator Dermatology 04/10/24 Herminia Hatch MD [employer] [place], [place] 37[address] Assigned Rheumatology Provider 07/02/24 documented as of this encounter
--- OUTSIDE RECORDS SUMMARY | 2024-08-28 19:11 | XMS_ITS | Encounter Summary ---
Author Organization [place] Address [address] [place] [address] Care Team Providers Care Brickmason Apprentice Name Role Phone Diana Desir [facility] Unavailable Rain Galaviz PA-C Unavailable Tavia Wyatt MD Unavailable Erica Farrell APRN VIRTUAL ASSISTANT Unavailable Rich Barrett MD Unavailable [phone] Neil Kent MD Unavailable Diana Desir [facility] Unavailable [phone] Livan Sharif MD Unavailable Catherine Cm MD Unavailable + Valery Veronica PA-C Unavailable Brea Quinn FLATBED OWNER OPERATOR VIRTUAL ASSISTANT Unavailable Brea Quinn FLATBED OWNER OPERATOR VIRTUAL ASSISTANT Unavailable [phone] Jose Francisco Johnson MD Unavailable Alfonso Renteria MD Unavailable [phone] Esha Grimm PA-C Primary Care Provider [phone] Radha Lomeli APRN VIRTUAL ASSISTANT Unavailable Jelena David OD Unavailable Pao Joseph RN Unavailable Unavailable Esha Grimm PA-C Unavailable [phone] Valery Veronica PA-C Unavailable [phone] Rey Tay MD Unavailable Rocky Zepeda DO Unavailable Philip Dumont MD Unavailable [phone] Meredith Carrera PA-C Unavailable [phone] Neil Kent MD Unavailable Juan Pablo Emmanuel MD Unavailable [phone] Audrey Waite PA-C Unavailable [phone] Valery Veronica PA-C Unavailable Herminia Hatch MD Unavailable Encounter Details Date Type Department Care Team (Late st Contact Info) Description 08/25/2023 [facility] [address] [address] Marija Polanco RN Social History [...] often do you attend [facility] or yazdanism services? 1 to 4 [...] exercise at this level? 30 min 03/10/2023 [place] Depression Scale Answer Date Recorded [place] Depression Score 5 01/14/2021 Last EPDS Self [...] PM CDT Legal Sex Female 4:13 AM HOSPICE EXECUTIVE DIRECTOR Gender Identity Female 03/02/2021 5:45 PM CDT Sexual Orientation Straight 02/28/2020 12 :51 AM CDT documented as of this encounter Plan of Treatment Upcoming Encounters Date Type Department Care Team (Late st Contact Info) Description 10/23/2024 9:30 AM CDT Office Visit [facility] Neurology [address], [address] [place] [address] [place] [address] [place] [address]127 Johnny Penn MD [address] [place] [address] documented as of this encounter Visit Diagnoses Not on filedocumented in this encounter Additional Health Concerns Infection Onset Date Last Indicated Resolved Time Rule Out COVID-19 12/26/2023 12/26/2023 12/26/2023 9:50 AM CDT Rule Out COVID-19 04/09/2024 04/09/2024 04/10/2024 6:48 PM CDT Assessment Noted Time PHQ-9 Depression Total Score: 4 06/20/20 23 8:40 AM HOSPICE EXECUTIVE DIRECTOR documented as of this encounter Care Teams Brickmason Apprentice Relationship Specialty Start Date End Date Esha Grimm PA-C [address] [place] [address] PCP - General Family Medicine 05/04/23 Diana Desir, [facility] [address] [place], [place] 285396 Pharmacist Pharmacist 04/17/21 Rain Galaviz PA-C [address] [place] [address] [address] [place] [address] Physician Distribution Manager Dermatology 04/28/21 Tavia Wyatt MD [address] [place] [address] [address] [place] [address] [id number] Dermatology 07/14/21 Erica Farrell APRN VIRTUAL ASSISTANT 6405 [facility] [address] [place], [place] 0[address] Nurse Practitioner Cardiovascular Disease 09/09/21 Rich Barrett MD 516 [facility] 9A [place], [place] 473765 Physician Ophthalmology 01/21/22 Neil Kent MD 500 [place], [place] 255045 Dermatology 02/24/22 Diana Desir, [facility] 3033 [place] [address] Assigned MTM Pharmacist 04/07/22 Livan Sharif MD [address], [facility] [address] [place] [address] Cardiovascular Disease 05/14/22 Catherine Cm MD [address] [facility] [address] [place] 981885 Cardiovascular Disease 07/21/22 Valery Veronica, PA-C 909 [place], [place] 177235 Physician Distribution Manager Dermatology 07/21/22 Brea Quinn APRN VIRTUAL ASSISTANT 500 [place], [place] 474065 Nurse Practitioner Dermatology 09/21/22 Brea Quinn APRN VIRTUAL ASSISTANT [address] [place] [address] 277582 Assigned Surgical Provider 10/09/22 05/01/24 [place] [address] [facility] 300 [place], [place] 917337 Assigned Musculoskeletal Provider 10/09/22 05/01/24 Alfonso Renteria MD 5775 [facility] 200 [place], [place] 592956 Assigned Neuroscience Provider 04/02/23 Radha Lomeli APRN VIRTUAL ASSISTANT 6405 [facility] [address] [place] [address] Assigned Heart and Vascular Provider 05/28/23 Jelena David OD [address] [place] [address] MD Ophthalmology 06/15/23 aPo Joseph, VJ Personal Advocate & Liaison (PAL) Nurse 08/01/23 11/07/23 Esha Grimm PA-C [address] [place] [phone] Assigned PCP 07/16/23 Valery Veronica PA-C [address] [place] [address] 842585 Physician Distribution Manager Dermatology 09/19/23 Rey Tay MD [address] [place] [address] 172295 Gastroenterology 09/20/23 Rocky Zepeda DO [address] [place] [address] 575375 Physician Gastroenterology 09/20/23 Philip Dumont MD [address] [place] [address] 117165 Physician Ophthalmology 09/22/23 Meredith Carrera PA-C [address] [place] [address] 599755 Assigned Gastroenterology Provider 11/01/23 Neil Kent MD [address] [place] [address] Dermatology 11/02/23 [place] [address] 775447 Neurological Surgery 12/26/23 Audrey Waite PA-C 500 [place] [address] Physician Distribution Manager Dermatology 02/28/24 Valery Veronica PA-C 614249 [place], [place] [address] Physician Distribution Manager Dermatology 04/10/24 Herminia Hatch MD [facility]5 [place] [address] Assigned Rheumatology Provider 07/02/24 documented as of this encounter
--- OUTSIDE RECORDS SUMMARY | 2024-08-28 19:11 | XMS_ITS | Encounter Summary ---
Author Organization [place] Address [address] [place] [address] Care Team Providers Care Station Tender Name Role Phone Diana Desir [facility] Unavailable [phone] Rain Galaviz PAUcheC Unavailable [phone] Tavia Wyatt MD Unavailable Erica Farrell RESEARCH PROJECT MANAGER MANGLE OPERATOR GARMENTS Unavailable Rich Barrett MD Unavailable [phone] Neil Kent MD Unavailable Kendrick Desirelle Stanislav [facility] Unavailable Livan Sharif MD Unavailable Catherine Cm MD Unavailable + Valery Veronica-C Unavailable Brea Quinn RESEARCH PROJECT MANAGER MANGLE OPERATOR GARMENTS Unavailable Alfonso Renteria MD Unavailable [phone] Esha GrimmC Primary Care Provider [phone] Radha Lomeli RESEARCH PROJECT MANAGER MANGLE OPERATOR GARMENTS Unavailable Jelena David OD Unavailable [place], Esha M PA-C Unavailable [phone] Valery Veronica PA-C Unavailable Rey Tay MD Unavailable Rocky Zepeda DO Unavailable Philip Dumont MD Unavailable [phone] Meredith Carrera PA-C Unavailable [phone] Neil Kent MD Unavailable Juan Pablo Emmanuel MD Unavailable [phone] Audrey Waite PA-C Unavailable [phone] Valery Veronica PA-C Unavailable [phone] Herminia Hatch MD Unavailable Encounter Details Date Type Department Care Team (Late st Contact Info) Description 08/16/2024 Orders Only (auto-released) [facility] [address] [place] [address] Fabiano Correa, DIRECTOR ENGINEERING [address] [place] [address] Palpitations Social History Tobacco Use [...] Answer Date Recorded PHQ-2 Score 1 02/07/2024 [facility] - [...] PM CDT Legal Sex Female 4:13 AM ROTARY 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 ENGINE OPERATOR Gender Identity Female 03/02/2021 5:45 PM CDT Sexual Orientation Straight 02/28/2020 12 :51 AM CDT documented as of this encounter Plan of Treatment Upcoming Encounters Date Type Department Care Team (Late st Contact Info) Description 10/23/2024 9:30 AM CDT Office Visit [facility] Neurology [address], [address] [place] [address] [place] [address] [place] [address] [place], [place] [address] [phone] Johnny Penn MD [address] [place] [address] documented as of this encounter Visit Diagnoses Diagnosis Palpitations documented in this encounter Additional Health Concerns Assessment Noted Time PHQ-9 Depression Total Score: 3 02/07/20 24 9:33 AM CDT documented as of this encounter Care Teams Station Tender Relationship Specialty Start Date End Date Esha Grimm PA-C [address] [place] [address] PCP - General Family Medicine 05/04/23 Diana Desir, [facility] [address] [place] [address] Pharmacist Pharmacist 04/17/21 Rain Galaviz PA-C [address] [place] [address] [address] [place] [address] Physician Program Coordinator For Residence Life Dermatology 04/28/21 Tavia Wyatt MD [address] [place] [address] [address] [place] [address] Dermatology 07/14/21 Erica Farrell APRN MANGLE OPERATOR GARMENTS [address] [address] Nurse Practitioner Cardiovascular Disease 09/09/21 Rich Barrett MD 516 [facility] 9A [place], [place] 455855 Physician Ophthalmology 01/21/22 Neil Kent MD 500 [place], [place] 937045 Dermatology 02/24/22 Diana Desir, [facility] [address] [place] [address] Assigned MTM Pharmacist 04/07/22 Livan Sharif MD [address], [facility] [address] [place] 220175 Cardiovascular Disease 05/14/22 Catherine Cm MD [address] [facility] [address] [place] 231255 Cardiovascular Disease 07/21/22 Valery Veronica PA-C 909 [place], [place] 5[address]415 Physician Program Coordinator For Residence [employer] Dermatology 07/21/22 Brea Quinn APRN MANGLE OPERATOR GARMENTS 500 [place], [place] 965515 Nurse Practitioner Dermatology 09/21/22 Alfonso Renteria MD 5775 [facility] 200 [place], [place] 733156 Assigned Neuroscience Provider 04/02/23 Radha Lomeli APRN MANGLE OPERATOR GARMENTS [address] [place] 701615 Assigned Heart and Vascular Provider 05/28/23 Jelena David OD 3305 [facility] [place] [address] Ophthalmology 06/15/23 Esha Grimm PA-C [address] [place] [address] Assigned PCP 07/16/23 Valery Veronica PA-C 909 [place] [address] Physician Program Coordinator For Residence Life Dermatology 09/19/23 Rey Tay MD [address] [place] [address] MD Gastroenterology 09/20/23 Rocky Zepeda DO 500 [place] [address] Physician Gastroenterology 09/20/23 Philip Dumont MD [address] [place] [address] Physician Ophthalmology 09/22/23 Meredith Carrera PA-C 9 [place] [address] Assigned Gastroenterology Provider 11/01/23 Neil Kent MD [address] [address] Dermatology 11/02/23 [place] [address] [place] [address] [address] Neurological Surgery 12/26/23 Audrey Waite PA-C 500 [place] [address] Physician Program Coordinator For Residence Life Dermatology 02/28/24 Valery Veronica PA-C 970204 [address] [place] [address] Physician Program Coordinator For Residence Life Dermatology 04/10/24 Herminia Hatch MD [address] [place] [address] [id number] Assigned Rheumatology Provider 07/02/24 documented as of this encounter
--- OUTSIDE RECORDS SUMMARY | 2024-08-28 19:11 | XMS_ITS | Encounter Summary ---
Author Organization [employer] Address [address] [place] [address] Care Team Providers Care Rum Processing Operator Name Role Phone Diana Desir [facility] Unavailable [phone] Rain Galaviz PAUcheC Unavailable Tavia Wyatt MD Unavailable Erica Farrell LICSW CURTAIN MENDER Unavailable Rich Barrett MD Unavailable [phone] Neil Kent MD Unavailable Kendrick Desirelle Stanislav [facility] Unavailable Livan Sharif MD Unavailable Catherine Cm MD Unavailable + Valery Veronica-C Unavailable [phone] Brea Quinn LICSW CURTAIN MENDER Unavailable Alfonso Renteria MD Unavailable [phone] Esha GrimmC Primary Care Provider [phone] Radha Lomeli LICSW CURTAIN MENDER Unavailable Jelena David OD Unavailable Esha Grimm PA-C Unavailable [phone] Valery VeronicaC Unavailable [phone] Rey Tay MD Unavailable Rocky Zepeda DO Unavailable Philip Dumont MD Unavailable Meredith CarreraC Unavailable [phone] Neil Kent MD Unavailable Juan Pablo Emmanuel MD Unavailable Audrey WaiteC Unavailable [phone] Valery VeronicaC Unavailable [phone] Herminia Hatch MD Unavailable Encounter Details Date Type Department Care Team (Late st Contact Info) Description 07/17/2024 12:30 PM SMALL PARTS ASSEMBLER E-Visit [facility] [address] [place] [address] Esha Grimm PA-C [id number] [place] [address] Bacterial vaginosis (Primary Dx) Social History [...] week 05/07/2024 How often do you attend [facility] or [facility] services? 1 to 4 times [...] 02/07/2024 [facility] ional Health [...] exercise at this level? 20 min 05/07/2024 [place] Depression Scale Answer Date Recorded [place] Depression Score 5 01/14/2021 Last EPDS Self [...] PM CDT Legal Sex Female 4:13 AM SMALL PARTS ASSEMBLER Gender Identity Female 03/02/2021 5:45 PM CDT Sexual Orientation Straight 02/28/2020 12 :51 AM CDT documented as of this encounter Miscellaneous Notes * Telephone Encounter - Esha Grimm PA-C - 07/17/2024 12:44 PM CST Provider E-Visit time total (minutes): 12 L PARTS ASSEMBLER documented in this encounter Plan of Treatment Upcoming Encounters Date Type Department Care Team (Late st Contact Info) Description 10/23/2024 9:30 AM CDT Office Visit [facility] Neurology [facility] - [address], [address] [place] [address] [place] [address] [place] [address] Johnny Penn MD [address] [place] [place] [address] documented as of this encounter Visit Diagnoses Diagnosis Bacterial vaginosis- Primary Vaginitis and vulvovaginitis, unspecified documented in this encounter Additional Health Concerns Assessment Noted Time PHQ-9 Depression Total Score: 3 02/07/20 24 9:33 AM CDT documented as of this encounter Care Teams Rum Processing Operator Relationship Specialty Start Date End Date Esha Grimm PA-C [address] [place] [address] PCP - General Family Medicine 05/04/23 Diana Desir, [facility] [address] [facility] [place], [place] 08[address] Pharmacist Pharmacist 04/17/21 Rain Galaviz PA-C [address] [place] [address] [address] [place] [address] Physician Hat Former Dermatology 04/28/21 Tavia Wyatt MD [address] [place] [address] [address] [place] [address] Dermatology 07/14/21 Erica Farrell APRN CURTAIN MENDER [address] [place] [address] Nurse Practitioner Cardiovascular Disease 09/09/21 Rich Barrett MD [address] 650715 Physician Ophthalmology 01/21/22 Neil Kent MD 500 [place], [place] 47[address] Dermatology 02/24/22 Diana Desir, [facility] 3033 [place], [place] 210796 Assigned MTM Pharmacist 04/07/22 Livan Sharif MD [address], [facility] [address] [place] [address]45 Cardiovascular Disease 05/14/22 Catherine Cm MD [address] [place] [address] [place], [place] 77[address] Cardiovascular Disease 07/21/22 Valery Veronica PAUcheC 909 [place], [place] 161115 Physician Hat Former Dermatology 07/21/22 Brea Quinn APRN CURTAIN MENDER 500 [place], [place] 658315 Nurse Practitioner Dermatology 09/21/22 Alfonso Renteria MD [address] [facility] 200 [place], [place] 70[address]86 Assigned Neuroscience Provider 04/02/23 Radha Lomeli APRN CURTAIN MENDER [address] [place] 457075 Assigned Heart and Vascular Provider 05/28/23 Jelena David OD 3305 [facility] [place] [address] Ophthalmology 06/15/23 Esha Grimm PA-C [address] [place] [address] Assigned PCP 07/16/23 Valery Veronica PA-C [address] [place] [address] Physician Hat Former Dermatology 09/19/23 Rey Tay MD [address] [place] [address] MD Gastroenterology 09/20/23 Rocky Zepeda DO [address] [place] [address] Physician Gastroenterology 09/20/23 Philip Dumont MD [address] [place] [address] Physician Ophthalmology 09/22/23 Meredith Carrera PA-C [address] [place] [address] Assigned Gastroenterology Provider 11/01/23 Neil Kent MD [address] 399[address] Dermatology 11/02/23 [place] [address] [address] [facility] [place] [address] Neurological Surgery 12/26/23 Audrey Waite PA-C 500 [place] [address] Physician Hat Former Dermatology 02/28/24 Valery Veronica PA-C [address] [place] [address] Physician Hat Former Dermatology 04/10/24 Herminia Hatch MD [address] [place] [address] [id number] Assigned Rheumatology Provider 07/02/24 documented as of this encounter
--- OUTSIDE RECORDS SUMMARY | 2024-08-28 19:11 | XMS_ITS | Encounter Summary ---
Author Organization [facility] Address [address] [place] [address] Care Team Providers Care Aerospace Project Manager Name Role Phone Diana Desir [facility] Unavailable Rain Galaviz PA-C Unavailable Tavia Wyatt MD Unavailable Erica Farrell APRN COMPOTYPE OPERATOR Unavailable Rich Barrett MD Unavailable [phone] Neil Kent MD Unavailable Diana Desir [facility] Unavailable Livan Sharif MD Unavailable Catherine Cm MD Unavailable + Valery Veronica PA-C Unavailable Brea Quinn TELETYPESETTER MONITOR COMPOTYPE OPERATOR Unavailable Brea Quinn TELETYPESETTER MONITOR COMPOTYPE OPERATOR Unavailable Jose Francisco Johnson MD Unavailable Alfonso Renteria MD Unavailable [phone] Esha Grimm PA-C Primary Care Provider Radha Lomeli APRN COMPOTYPE OPERATOR Unavailable Jelena David OD Unavailable [phone] Pao Joseph RN Unavailable Unavailable Esha Grimm PA-C Unavailable [phone] Valery Veronica PA-C Unavailable [phone] Rey Tay MD Unavailable Rocky Zepeda DO Unavailable Philip Dumont MD Unavailable [phone] Meredith Carrera PA-C Unavailable [phone] Neil Kent MD Unavailable Juan Pablo Emmanuel MD Unavailable [phone] Audrey Waite PA-C Unavailable [phone] Valery Veronica PA-C Unavailable [phone] Herminia Hatch MD Unavailable Encounter Details Date Type Department Care Team (Late st Contact Info) Description 08/31/2023 [facility] Medical Advice [facility] [address] [facility] [address] [place] [address] Amalia Reyes RN Social History [...] Score 0 06/20/2023 [facility] - [...] exercise at this level? 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 Gender Identity Female 03/02/2021 5:45 PM CDT Sexual Orientation Straight 02/28/2020 12 :51 AM CDT documented as of this encounter Plan of Treatment Upcoming Encounters Date Type Department Care Team (Late st Contact Info) Description 10/23/2024 9:30 AM CDT Office Visit [facility] Neurology [address], [address] [place] [address] [place] [address] [address] [place] 625767 Johnny Penn MD [address] [place] [id number] documented as of this encounter Visit Diagnoses Not on filedocumented in this encounter Additional Health Concerns Infection Onset Date Last Indicated Resolved Time Rule Out COVID-19 12/26/2023 12/26/2023 12/26/2023 9:50 AM CDT Rule Out COVID-19 04/09/2024 04/09/2024 04/10/2024 6:48 PM CDT Assessment Noted Time PHQ-9 Depression Total Score: 4 06/20/20 23 8:40 AM BLOOD BANK TECHNOLOGIST documented as of this encounter Care Teams Aerospace Project Manager Relationship Specialty Start Date End Date Esha Grimm PA-C [address] [place] [address] PCP - General Family Medicine 05/04/23 Diana Desir, [facility] [address] [place], [place] [address] Pharmacist Pharmacist 04/17/21 Rain Galaviz PA-C [address] [place] [address] [address] [place] [address] Physician Communication Manager Dermatology 04/28/21 Tavia Wyatt MD [address] [place] [address] [address] [place] [place], [place] [id number] Dermatology 07/14/21 Erica Farrell APRN COMPOTYPE OPERATOR [address] [facility] [address] [place], [place] 518[address] Nurse Practitioner Cardiovascular Disease 09/09/21 Rich Barrett MD 516 [facility] 9A [place], [place] 723175 Physician Ophthalmology 01/21/22 Neil Kent MD 500 [place], [place] 496915 Dermatology 02/24/22 Diana Desir, [facility] 3033 [place] [address] Assigned MTM Pharmacist 04/07/22 Livan Sharif MD [address], [facility] [address] [place], [place] 2137[address] Cardiovascular Disease 05/14/22 Catherine Cm MD [address] [facility] [address] [place], [place] 175625 Cardiovascular Disease 07/21/22 Valery Veronica, PAUcheC 9 [place], [place] 191155 Physician Communication Manager Dermatology 07/21/22 Brea Quinn APRN COMPOTYPE OPERATOR 500 [place], [place] 382925 Nurse Practitioner Dermatology 09/21/22 Brea Quinn APRN COMPOTYPE OPERATOR [address] [place] [address] Assigned Surgical Provider 10/09/22 05/01/24 [place] [address] [address] [facility] 300 [place] [address] Assigned Musculoskeletal Provider 10/09/22 05/01/24 Alfonso Renteria MD [address] [facility] 200 [place], [place] 532216 Assigned Neuroscience Provider 04/02/23 Radha Lomeli APRN COMPOTYPE OPERATOR 6[address] [facility] [address] [place] [address] Assigned Heart and Vascular Provider 05/28/23 Jelena David OD [address] [facility] [place] [address] MD Ophthalmology 06/15/23 Pao Joseph, VJ Personal Advocate & Liaison (PAL) Nurse 08/01/23 11/07/23 Esha Grimm PA-C [address] [place] [phone] Assigned PCP 07/16/23 Valery Veronica PA-C [address] [place] [address] 671955 Physician Communication Manager Dermatology 09/19/23 Rey Tay MD [address] [place] [address] 354595 Gastroenterology 09/20/23 Rocky Zepeda DO [address] [place] [address] 152165 Physician Gastroenterology 09/20/23 Philip Dumont MD [address] [place] [address] 660515 Physician Ophthalmology 09/22/23 Meredith Carrera PA-C [address] [place] [address] 763195 Assigned Gastroenterology Provider 11/01/23 Neil Kent MD [address] [address] Dermatology 11/02/23 [place] [address] 412967 Neurological Surgery 12/26/23 Audrey Waite PA-C 500 [place] [address] Physician Communication Manager Dermatology 02/28/24 Valery Veronica PAUcheC 077036 [place], [place] [address] Physician Communication Manager Dermatology 04/10/24 Herminia Hatch MD 1875 [place] [address] Assigned Rheumatology Provider 07/02/24 documented as of this encounter
--- OUTSIDE RECORDS SUMMARY | 2024-08-28 19:11 | XMS_ITS | Encounter Summary ---
Author Organization [facility] Address [address] [place] [address] Care Team Providers Care Production Planner Name Role Phone Diana Desir [facility] Unavailable Rain Galaviz PA-C Unavailable [phone] Tavia Wyatt MD Unavailable Erica Farrell APRN FOREPART ROUNDER Unavailable Rich Barrett MD Unavailable [phone] Neil Kent MD Unavailable Diana Desir [facility] Unavailable Livan Sharif MD Unavailable Catherine Cm MD Unavailable + Valery Veronica PA-C Unavailable Brea Quinn MELTER LOADER FOREPART ROUNDER Unavailable Brea Quinn MELTER LOADER FOREPART ROUNDER Unavailable Jose Francisco Johnson MD Unavailable Alfonso Renteria MD Unavailable [phone] Esha Grimm PA-C Primary Care Provider Radha Lomeli APRN FOREPART ROUNDER Unavailable Jelena David OD Unavailable [phone] Pao Joseph RN Unavailable Unavailable Esha Grimm PA-C Unavailable [phone] Valery Veronica PA-C Unavailable Rey Tay MD Unavailable Rocky Zepeda DO Unavailable Philip Dumont MD Unavailable [phone] Meredith Carrera PA-C Unavailable [phone] Neil Kent MD Unavailable Juan Pablo Emmanuel MD Unavailable Audrey Waite PA-C Unavailable [phone] Valery Veronica PA-C Unavailable [phone] Herminia Hatch MD Unavailable Encounter Details Date Type Department Care Team (Late st Contact Info) Description 08/04/2023 [facility] [address] [address] [facility] [address] [place] [address] Social History Tobacco Use Types Packs/Day Years [...] week 03/10/2023 How often do you attend [facility] or s[facility] services? 1 to 4 [...] Score 0 06/20/2023 [facility] - Occupational Stress Questionnaire Answer Date [...] exercise at this level? 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 RATE SUPERVISOR Gender Identity Female 03/02/2021 5:45 PM CDT Sexual Orientation Straight 02/28/2020 12 :51 AM CDT documented as of this encounter Plan of Treatment Upcoming Encounters Date Type Department Care Team (Late st Contact Info) Description 10/23/2024 9:30 AM CDT Office Visit [facility] Neurology Clinics [address], [address] [place] [address] [place] [address] [address] [place] [address] Johnny Penn MD [address] [place] [address] documented as of this encounter Visit Diagnoses Not on filedocumented in this encounter Additional Health Concerns Infection Onset Date Last Indicated Resolved Time Rule Out COVID-19 12/26/2023 12/26/2023 12/26/2023 9:50 AM CDT Rule Out COVID-19 04/09/2024 04/09/2024 04/10/2024 6:48 PM CDT Assessment Noted Time PHQ-9 Depression Total Score: 4 06/20/20 23 8:40 AM DUAL RATE SUPERVISOR documented as of this encounter Care Teams Production Planner Relationship Specialty Start Date End Date Esha Grimm PA-C [address] [place] [address] PCP - General Family Medicine 05/04/23 Diana Desir, [facility] 30[address] [place] [address] Pharmacist Pharmacist 04/17/21 Rain Galaviz PA-C [address] [place] [address] [address] [place] [address] Physician Epic Application Coordinator Dermatology 04/28/21 Tavia Wyatt MD [address] [place] [address] [address] [facility] [place] [address] Dermatology 07/14/21 Erica Farrell APRN FOREPART ROUNDER [address] [facility] [address] [place] [address] Nurse Practitioner Cardiovascular Disease 09/09/21 Rich Barrett MD [address] [place] [address]885 Physician Ophthalmology 01/21/22 Neil Kent MD [address] [place] [address] Dermatology 02/24/22 [facility] 3033 [place] [address] Assigned [place] Pharmacist 04/07/22 Livan Sharif MD [address] [place] 7438000 [place] [address] Cardiovascular Disease 05/14/22 Catherine Cm MD [address] 932635 Cardiovascular Disease 07/21/22 Valery Veronica, PAUcheC 909 [place] [address] Physician Epic Application Coordinator Dermatology 07/21/22 Brea Quinn APRN FOREPART ROUNDER 500 [place] [address] Nurse Practitioner Dermatology 09/21/22 Brea Quinn APRN FOREPART ROUNDER [address] [place] [address] Assigned Surgical Provider 10/09/22 05/01/24 [place] [address] [address] Assigned Musculoskeletal Provider 10/09/22 05/01/24 Alfonso Renteria MD 57[address] [facility] 200 [place] [address] Assigned Neuroscience Provider 04/02/23 Radha Lomeli APRN FOREPART ROUNDER [address] [place] [address] Assigned Heart and Vascular Provider 05/28/23 Jelena David OD [address] [facility] [place] [address] Ophthalmology 06/15/23 Pao Joseph, VJ Personal Advocate & Liaison (PAL) Nurse 08/01/23 11/07/23 Esha Grimm PA-C [address] [place] [address] Assigned PCP 07/16/23 Valery Veronica PA-C [address] [place] [address] 345295 Physician Epic Application Coordinator Dermatology 09/19/23 Rey Tay MD [address] [place] [address] 249365 Gastroenterology 09/20/23 Rocky Zepeda DO [address] [place] [address] 314625 Physician Gastroenterology 09/20/23 Philip Dumont MD [address] [place] [address] 078215 Physician Ophthalmology 09/22/23 Meredith Carrera PA-C [address] [place] [address] Assigned Gastroenterology Provider 11/01/23 Neil Kent MD [address] [address] Dermatology 11/02/23 [place] [address] [address] Neurological Surgery 12/26/23 Audrey Waite PA-C 500 [place] [address] Physician Epic Application Coordinator Dermatology 02/28/24 Valery Veronica PA-C 399421 [place], [place] [address] Physician Epic Application Coordinator Dermatology 04/10/24 Herminia Hatch MD [facility]5 [place], [place] 05[address] Assigned Rheumatology Provider 07/02/24 documented as of this encounter
--- OUTSIDE RECORDS SUMMARY | 2024-08-28 19:11 | XMS_ITS | Encounter Summary ---
Author Organization [facility] Address [address] [place] [address] Care Team Providers Care Grinder Set Up Operator Gear Tool Name Role Phone Diana Desir [facility] Unavailable Rain Galaviz PA-C Unavailable Tavia Wyatt MD Unavailable Erica Farrell APRN DEPUTY FIRE MARSHAL Unavailable Rich Barrett MD Unavailable [phone] Neil Kent MD Unavailable Diana Desir [facility] Unavailable Livan Sharif MD Unavailable Catherine Cm MD Unavailable + Valery Veronica PA-C Unavailable rBea Quinn NEWS CLIPPING CUTTER DEPUTY FIRE MARSHAL Unavailable [phone] Brea Quinn NEWS CLIPPING CUTTER DEPUTY FIRE MARSHAL Unavailable Jose Francisco Johnson MD Unavailable Alfonso Renteria MD Unavailable [phone] Esha Grimm PA-C Primary Care Provider Radha Lomeli APRN DEPUTY FIRE MARSHAL Unavailable Jelena David OD Unavailable Pao Joseph RN Unavailable Unavailable Esha Grimm PA-C Unavailable [phone] Valery Veronica PA-C Unavailable [phone] Rey Tay MD Unavailable Rocky Zepeda DO Unavailable Philip Dumont MD Unavailable [phone] Meredith Carrera PA-C Unavailable [phone] Neil Kent MD Unavailable Juan Pablo Emmanuel MD Unavailable [phone] Audrey Waite PA-C Unavailable [phone] Valery Veronica PA-C Unavailable Herminia Hatch MD Unavailable Encounter Details Date Type Department Care Team (Late st Contact Info) Description 08/11/2023 [facility] Medical Advice [address] [address] Pao Joseph, RN Social History [...] Date Recorded PHQ-2 Score 0 06/20/2023 [facility] - Occupational Stress Questionnaire Answer [...] exercise at this level? 30 min 03/10/2023 Fowler Depression Scale Answer Date Recorded Fowler [...] PM CDT Legal Sex Female 4:13 AM FURNITURE SALESPERSON Gender Identity Female 03/02/2021 5:45 PM CDT Sexual Orientation Straight 02/28/2020 12 :51 AM CDT documented as of this encounter Plan of Treatment Upcoming Encounters Date Type Department Care Team (Late st Contact Info) Description 10/23/2024 9:30 AM CDT Office Visit [facility] Neurology [address], [address] [place] [address] [place] [address] [address] [place] 215867 Johnny Penn MD [address] [place] [id number] documented as of this encounter Visit Diagnoses Not on filedocumented in this encounter Additional Health Concerns Infection Onset Date Last Indicated Resolved Time Rule Out COVID-19 12/26/2023 12/26/2023 12/26/2023 9:50 AM CDT Rule Out COVID-19 04/09/2024 04/09/2024 04/10/2024 6:48 PM CDT Assessment Noted Time PHQ-9 Depression Total Score: 4 06/20/20 23 8:40 AM FURNITURE SALESPERSON documented as of this encounter Care Teams Grinder Set Up Operator Gear Tool Relationship Specialty Start Date End Date Esha Grimm PA-C [address] [place] [address] PCP - General Family Medicine 05/04/23 Diana Desir, [facility] [address] [place], [place] 825[address] Pharmacist Pharmacist 04/17/21 Rain Galaviz PA-C [address] [place] [address] [address] [facility] [place] [address] Physician Rubber And Pounder Dermatology 04/28/21 Tavia Wyatt MD [address] [place] [address] [address] [place] [address] Dermatology 07/14/21 Erica Farrell APRN DEPUTY FIRE MARSHAL [address] [facility] [address] [place] [address] Nurse Practitioner Cardiovascular Disease 09/09/21 Rich Barrett MD 516 [facility] 9A [place], [place] 123755 Physician Ophthalmology 01/21/22 Neil Kent MD 500 [place], [place] 795465 Dermatology 02/24/22 Diana Desir, [facility] 3033 [place] [address] Assigned MTM Pharmacist 04/07/22 Livan Sharif MD [address], [facility] [address] [place], [place] 0[address] Cardiovascular Disease 05/14/22 Catherine Cm MD [address] [facility] [address] [place], [place] 116935 Cardiovascular Disease 07/21/22 Valery Veronica, PAUcheC 909 [place], [place] 154685 Physician Rubber And Pounder Dermatology 07/21/22 Brea Quinn APRN DEPUTY FIRE MARSHAL 500 [place], [place] 482515 Nurse Practitioner Dermatology 09/21/22 Brea Quinn APRN DEPUTY FIRE MARSHAL [address] [place] [address] Assigned Surgical Provider 10/09/22 05/01/24 [place] [address] [address] [facility] 300 [place] [address] Assigned Musculoskeletal Provider 10/09/22 05/01/24 Alfonso Renteria MD 5775 [facility] 200 [place], [place] 805366 Assigned Neuroscience Provider 04/02/23 Radha Lomeli, ARLENE DEPUTY FIRE MARSHAL 6405 [facility] [address] [place] [address] Assigned Heart and Vascular Provider 05/28/23 Jelena David OD 3305 [facility] [place] [address] MD Ophthalmology 06/15/23 Pao Joseph, VJ Personal Advocate & Liaison (PAL) Nurse 08/01/23 11/07/23 Esha Grimm PA-C [address] [place] [phone] Assigned PCP 07/16/23 Valery Veronica PA-C [address] [place] [address] 772745 Physician Rubber And Pounder Dermatology 09/19/23 Rey Tay MD [address] [place] [address] 788505 Gastroenterology 09/20/23 Rocky Zepeda DO [address] [place] [address] 650435 Physician Gastroenterology 09/20/23 Philip Dumont MD [address] [place] [address] 800005 Physician Ophthalmology 09/22/23 Meredith Carrera PA-C [address] [place] [address] 320265 Assigned Gastroenterology Provider 11/01/23 Neil Kent MD [address] [address] Dermatology 11/02/23 [place] [address] [place] [address] Neurological Surgery 12/26/23 Audrey Waite PAUcheC 500 [place] [address] Physician Rubber And Pounder Dermatology 02/28/24 Valery Veronica PAUcheC 666553 [place], [place] [address] Physician Rubber And Pounder Dermatology 04/10/24 Herminia Hatch MD [facility]5 [place] [address] Assigned Rheumatology Provider 07/02/24 documented as of this encounter
--- OUTSIDE RECORDS SUMMARY | 2024-08-28 19:11 | XMS_ITS | Encounter Summary ---
Author Organization [place] Address [address] [place] [address] Care Team Providers Care Pouncer Name Role Phone Diana Desir [facility] Unavailable Rain Galaviz PA-C Unavailable Tavia Wyatt MD Unavailable Erica Farrell APRN SIMPLEX OPERATOR Unavailable Rich Barrett MD Unavailable [phone] Neil Kent MD Unavailable Diana Desir [facility] Unavailable [phone] Livan Sharif MD Unavailable Catherine Cm MD Unavailable + Valery Veronica PA-C Unavailable Brea Quinn INSIDE SALES MANAGER SIMPLEX OPERATOR Unavailable [phone] Brea Quinn INSIDE SALES MANAGER SIMPLEX OPERATOR Unavailable [phone] Jose Francisco Johnson MD Unavailable Alfonso Renteria MD Unavailable [phone] Esha Grimm PA-C Primary Care Provider [phone] Radha Lomeli APRN SIMPLEX OPERATOR Unavailable Jelena David OD Unavailable Pao Joseph RN Unavailable Unavailable Esha Grimm PA-C Unavailable Valery Veronica PA-C Unavailable [phone] Rey Tay MD Unavailable Rocky Zepeda DO Unavailable Philip Dumont MD Unavailable [phone] Meredith Carrera PA-C Unavailable [phone] Neil Kent MD Unavailable Juan Pablo Emmanuel MD Unavailable [phone] Audrey Waite PA-C Unavailable [phone] Valery Veronica PA-C Unavailable Herminia Hatch MD Unavailable Encounter Details Date Type Department Care Team (Late st Contact Info) Description 08/25/2023 [facility] Medical Advice [facility] [address] [address] Marija Polanco RN Social History [...] do you attend [facility] or hinduism services? 1 to [...] Date Recorded PHQ-2 Score 0 06/20/2023 [facility] [...] exercise at this level? 30 min 03/10/2023 [place] Depression Scale Answer Date Recorded [place] Depression Score 5 01/14/2021 Last EPDS [...] PM CDT Legal Sex Female 4:13 AM PLEATER Gender Identity Female 03/02/2021 5:45 PM CDT Sexual Orientation Straight 02/28/2020 12 :51 AM CDT documented as of this encounter Plan of Treatment Upcoming Encounters Date Type Department Care Team (Late st Contact Info) Description 10/23/2024 9:30 AM CDT Office Visit [facility] Neurology [address], [address] [place] [address] [place] [address] [place] [address] Johnny Penn MD [address] [place] [address] documented as of this encounter Visit Diagnoses Not on filedocumented in this encounter Additional Health Concerns Infection Onset Date Last Indicated Resolved Time Rule Out COVID-19 12/26/2023 12/26/2023 12/26/2023 9:50 AM CDT Rule Out COVID-19 04/09/2024 04/09/2024 04/10/2024 6:48 PM CDT Assessment Noted Time PHQ-9 Depression Total Score: 4 06/20/20 23 8:40 AM PLEATER documented as of this encounter Care Teams Pouncer Relationship Specialty Start Date End Date Esha Grimm PA-C [address] [place] [address] PCP - General Family Medicine 05/04/23 Diana Desir, [facility] [address] [place], [place] [address] Pharmacist Pharmacist 04/17/21 Rain Galaviz PA-C [address] [place] [address] [address] [place] [address] Physician Miner Pick Dermatology 04/28/21 Tavia Wyatt MD [address] [place] [address] [address] [place] [address] [phone] Dermatology 07/14/21 Erica Farrell APRN SIMPLEX OPERATOR 6[address] [facility] [address] [place], [place] 391675 Nurse Practitioner Cardiovascular Disease 09/09/21 Rich Barrett MD 516 [facility] 9[address] [place], [place] 0[address] Physician Ophthalmology 01/21/22 Neil Kent MD 500 [place], [place] 0[address]35 Dermatology 02/24/22 Diana Desir, [facility] 3033 [place] [address] Assigned MTM Pharmacist 04/07/22 Livan Sharif MD [address], [facility] [address] [place] [address] Cardiovascular Disease 05/14/22 Catherine Cm MD [address] [facility] [address] [place] 8[address]65 Cardiovascular Disease 07/21/22 Valery Veronica, PA-C 909 [place], [place] 9[address]315 Physician Miner Pick Dermatology 07/21/22 Brea Quinn APRN SIMPLEX OPERATOR 500 [place], [place] 382535 Nurse Practitioner Dermatology 09/21/22 Brea Quinn APRN SIMPLEX OPERATOR [address] [place] [address] 605372 Assigned Surgical Provider 10/09/22 05/01/24 [place] [address] [address] [facility] 300 [place], [place] 546197 Assigned Musculoskeletal Provider 10/09/22 05/01/24 Alfonso Renteria MD [address] [facility] 200 [place], [place] 499326 Assigned Neuroscience Provider 04/02/23 Radha Lomeli APRN SIMPLEX OPERATOR 6[address] [facility] [address] [place] [address] Assigned Heart and Vascular Provider 05/28/23 Jelena David OD [address] [facility] [place] [address] MD Ophthalmology 06/15/23 Pao Joseph, VJ Personal Advocate & Liaison (PAL) Nurse 08/01/23 11/07/23 Esha Grimm PA-C [address] [place] [phone] Assigned PCP 07/16/23 Valery Veronica PA-C [address] [place] [address] Physician Miner Pick Dermatology 09/19/23 Rey Tay MD [address] [place] [address] 254085 Gastroenterology 09/20/23 Rocky Zepeda DO [address] [place] [address] 371035 Physician Gastroenterology 09/20/23 Philip Dumont MD [address] [place] [address] 631115 Physician Ophthalmology 09/22/23 Meredith Carrera PA-C [address] [place] [address] Assigned Gastroenterology Provider 11/01/23 Neil Kent MD [address] [place] [address] Dermatology 11/02/23 [place] [address] 965787 Neurological Surgery 12/26/23 Audrey Waite PA-C 500 [place] [address] Physician Miner Pick Dermatology 02/28/24 Valery Veronica PA-C 648200 [address] [address] Physician Miner Pick Dermatology 04/10/24 Herminia Hatch MD [facility]5 [place] [address] Assigned Rheumatology Provider 07/02/24 documented as of this encounter
--- OUTSIDE RECORDS SUMMARY | 2024-08-28 19:11 | XMS_ITS | Encounter Summary ---
Author Organization [place] Address [address] [place] [address] Care Team Providers Care Ground Helper Street Railway Name Role Phone Diana Desir [facility] Unavailable [phone] Rain Galaviz PAUcheC Unavailable Tavia Wyatt MD Unavailable Erica Farrell UPPER CUTTER OUT TELEGRAPH OFFICE MANAGER Unavailable Rich Barrett MD Unavailable [phone] Neil Kent MD Unavailable Kendrick Desirelle Stanislav [facility] Unavailable [phone] Livan Sharif MD Unavailable Catherine Cm MD Unavailable + Valery Veronica-C Unavailable Brea Quinn UPPER CUTTER OUT TELEGRAPH OFFICE MANAGER Unavailable Alfonso Renteria MD Unavailable [phone] Esha GrimmC Primary Care Provider Radha Lomeli UPPER CUTTER OUT TELEGRAPH OFFICE MANAGER Unavailable Jelena David OD Unavailable [place], Esha M PA-C Unavailable [phone] Valery Veronica PA-C Unavailable Rey Tay MD Unavailable Duane Rockyanne [facility] Unavailable Philip Dumont MD Unavailable Meredith Carrera PA-C Unavailable Neil Kent MD Unavailable Juan Pablo Emmanuel MD Unavailable [phone] Audrey Waite PA-C Unavailable Valery Veronica PA-C Unavailable [phone] Herminia Hatch MD Unavailable Reason for Referral * CV Testing (Routine) - Pending Review Specialty Diagnoses / Procedures Referred By Qian mayers Referred To Contact Diagnoses Palpitations Procedures ZIO PATCH MAIL OUT Fabiano Correa NP [address] [place] [address] Phone: tel: fax: Referral ID Status Reason Start Date Expiration Date V isits Requested Visits Authorized [id number] Pending Review 08/16/2024 08/16/2025 1 1 SPRAYER Reason for Visit * Reason Comments Tachycardia Encounter Details Date Type Department Care Team (Latest Contact Info) Description 08/16/2024 10:40 AM OIL SPRAYER Virtual Visit [facility] Heart [facility] [address] [place] [address] [address] [place] [address] Fabiano Correa NP [address] [place] [address] Palpitations (Primary Dx) Social History Tobacco Use [...] exercise at this level? 20 min 05/07/2024 [place] Depression Scale Answer Date Recorded [place] Depression Score 5 01/14/2021 Last EPDS Self [...] PM CDT Legal Sex Female 4:13 AM OIL SPRAYER Gender Identity Female 03/02/2021 5:45 PM CDT Sexual Orientation Straight 02/28/2020 12 :51 AM CDT documented as of this encounter Patient Instructions * Patient Instructions* Fabiano Correa NP - 08/16/2024 10:40 AM OIL SPRAYER Images from the original note were not included. Thank you for your phone visit with the [facility] today. Today's plan: -Check [...] concerns please call the nurse team at [phone] or send a [employer] message. Scheduling phone number: [phone] It was a pleasure speaking with you today! Rodrigo Correa APRN, TELEGRAPH OFFICE MANAGER Nurse Practitioner [facility] Care SPRAYER SPRAYER documented in this encounter Progress Notes * [...] her on these results by phone or [employer] message once they are received. - Counseled [...] if clarification is needed. Rodrigo Correa APRN, TELEGRAPH OFFICE MANAGER Nurse Practitioner [facility] - Heart Care Provider location: [facility] Heart [facility] Patient location: Home Total time on phone [...] would you like to be contacted at? [phone] How would you like to obtain your AVS? [facility] Originating Location (pt. Location): Home Distant Location [...] 2021 Other Topics Concern Parent/sibling w/ CABG, [place] or angioplasty before 65F 55M? No Social [...] 20 min Stress: Stress Concern Present (05/07/2024) [employer] [facility] [employer] - Occupational Stress Questionnaire Feeling of Stress : To some extent Social Connections: Moderately Isolated (05/07/2024) Social Connection and Isolation Panel [NHANES] Frequency of Communication with Friends and Family: Three times a week Frequency of Social Gatherings with Friends and Family: Once a week Attends Voodoo Services: 1 to 4 times per year [...] 12/27/2020 CECILLE 9.2 05/08/2024 CECILLE 9.1 12/27/2020 SPRAYER documented in this encounter Plan of Treatment Upcoming Encounters Date Type Department Care Team (Late st Contact Info) Description 10/23/2024 9:30 AM CDT Office Visit [facility] Neurology [address], [address] [place] [address] [place] [address] [facility] 300 [place], [place] [address] Johnny Penn MD 6545 [place], [place] 1713[address] documented as of this encounter Visit Diagnoses Diagnosis Palpitations- Primary documented in this encounter Additional Health Concerns Assessment Noted Time PHQ-9 Depression Total Score: 3 02/07/20 24 9:33 AM CDT documented as of this encounter Care Teams Ground Helper [address] Railway Relationship Specialty Start Date End Date Esha Grimm PA-C [address] [place] [phone] PCP - General Family Medicine 05/04/23 Diana Desir, [facility] [address] [place], [place] [phone] Pharmacist Pharmacist 04/17/21 Rain Galaviz PA-C [address] [place] [address] [address] [place] [address] Physician Call Specialist Dermatology 04/28/21 Tavia Wyatt MD [address] [place] [address] [address] [place] [address] Dermatology 07/14/21 Erica Farrell APRN TELEGRAPH OFFICE MANAGER [address] [place] [address] Nurse Practitioner Cardiovascular Disease 09/09/21 Rich Barrett MD [address] [place] [address] [address] [place], [place] 549085 Physician Ophthalmology 01/21/22 Neil Kent MD 500 [place], [place] 408135 Dermatology 02/24/22 Diana Desir, [facility] [address] [place] [address] Assigned MTM Pharmacist 04/07/22 Livan Sharif MD [address] [place] [address] Cardiovascular Disease 05/14/22 Catherine Cm MD [address] [place] [address] Cardiovascular Disease 07/21/22 Valery Veronica, PAUcheC [address] [place] [address] 789375 Physician Call Specialist Dermatology 07/21/22 Brea Quinn APRN TELEGRAPH OFFICE MANAGER [address] [place] [address] 346185 Nurse Practitioner Dermatology 09/21/22 Alfonso Renteria MD 5775 [facility] [address] 200 [place], [place] 9[address]146 Assigned Neuroscience Provider 04/02/23 Radha Lomeli APRN TELEGRAPH OFFICE MANAGER [address] 805135 Assigned Heart and Vascular Provider 05/28/23 Jelena David OD [facility] [address] [place] [id number] Ophthalmology 06/15/23 Esha Grimm PA-C [address] [place] [address] Assigned PCP 07/16/23 Valery Veronica PA-C [address] [place] [address] 535335 Physician Call Specialist Dermatology 09/19/23 Rey Tay MD 9 [place], [place] 415[address] Gastroenterology 09/20/23 Rocky Zepeda DO 500 [place] [address] Physician Gastroenterology 09/20/23 Philip Dumont MD 516 [place] [address] Physician Ophthalmology 09/22/23 Meredith Carrera PA-C 909 [place] [address] Assigned Gastroenterology Provider 11/01/23 Neil Kent MD [address] [address] MD Dermatology 11/02/23 [place] [address] [address] [address] [address] Neurological Surgery 12/26/23 Audrey Waite PA-C 500 [place] [address] Physician Call Specialist Dermatology 02/28/24 Valery Veronica PA-C 958449 99 [place] [address] Physician Call Specialist Dermatology 04/10/24 Herminia Hatch MD [facility]5 [place], [place] 12844[address] Assigned Rheumatology Provider 07/02/24 documented as of this encounter
--- OUTSIDE RECORDS SUMMARY | 2024-08-28 19:11 | XMS_ITS | Encounter Summary ---
Author Organization [place] Address [address] [place] [address] Care Team Providers Care Machine Ceramic Coater Name Role Phone Diana Desir [facility] Unavailable Rain Galaviz PAUcheC Unavailable Tavia Wyatt MD Unavailable Erica Farrell DIGESTER OPERATOR HELPER TECHNOLOGY COACH Unavailable Rich Barrett MD Unavailable [phone] Neil Kent MD Unavailable Kendrick Desirelle Stanislav [facility] Unavailable Livan Sharif MD Unavailable Catherine Cm MD Unavailable + Valery Veronica-C Unavailable Brea Quinn DIGESTER OPERATOR HELPER TECHNOLOGY COACH Unavailable Alfonso Renteria MD Unavailable [phone] Ehsa GrimmC Primary Care Provider Radha Lomeli DIGESTER OPERATOR HELPER TECHNOLOGY COACH Unavailable Jelena David OD Unavailable [phone] Esha Grimm PA-C Unavailable [phone] Valery VeronicaC Unavailable Rey Tay MD Unavailable Rocky Zepead DO Unavailable Philip Dumont MD Unavailable [phone] Meredith CarreraC Unavailable [phone] Neil Kent MD Unavailable Juan Pablo Emmanuel MD Unavailable [phone] Audrey WaiteC Unavailable [phone] Valery VeronicaC Unavailable Herminia Hatch MD Unavailable Reason for Visit * Reason Onset Date Comments Patient Request for Note/Letter 07/16/2024 Medication Question 07/16/2024 Encounter Details Date Type Department Care Team (Late st Contact Info) Description 07/16/2024 MyC Medical Advice [facility] [address] [place] [address] Esha Grimm PA-C [address] [place] [address] Patient Request for Note/Letter; Medicatio... Social [...] PHQ-2 Score 1 02/07/2024 [facility] - Occupational Stress Questionnaire Answer [...] exercise at this level? 20 min 05/07/2024 [place] Depression Scale Answer Date Recorded [place] [...] CDT Legal Sex Female 4:13 AM EQUIPMENT SCHEDULER Gender Identity Female 03/02/2021 5:45 PM [...] States she tested positive for BV at [facility], but they keep writing the prescription [...] done without a visit. Anni Grimm RN PMENT SCHEDULER documented in this encounter Plan of Treatment Upcoming Encounters Date Type Department Care Team (Late st Contact Info) Description 10/23/2024 9:30 AM CDT Office Visit [facility] Neu[facility] [address] [place] [address], [address] [place] [address] [place] [address] [place], [place] [phone] Johnny Penn MD 4399 [place] [address] documented as of this encounter Visit Diagnoses Not on filedocumented in this encounter Additional Health Concerns Assessment Noted Time PHQ-9 Depression Total Score: 3 02/07/20 24 9:33 AM CDT documented as of this encounter Care Teams Machine Ceramic Coater Relationship Specialty Start Date End Date Esha Grimm PA-C [address] [place] [phone] PCP - General Family Medicine 05/04/23 Diana Desir, [facility] [address] [place] [address] Pharmacist Pharmacist 04/17/21 Rain Galaviz PA-C [address] [place] [address] [address] [place], [place] 25[address] Physician Commonwealth Attorney Dermatology 04/28/21 Tavia Wyatt MD [address] [place] [address] DR [address] [facility] [address] Dermatology 07/14/21 Erica Farrell APRN TECHNOLOGY COACH [address] [place] [address] Nurse Practitioner Cardiovascular Disease 09/09/21 Rich Barrett MD [address] [place] [address] 833555 Physician Ophthalmology 01/21/22 Neil Kent MD [address] [place] [address] 832605 Dermatology 02/24/22 [facility] 3033 [place], [place] [address]267[address] Assigned [place] Pharmacist 04/07/22 Livan Sharif MD [address] [place] [address] [place] [address]255 Cardiovascular Disease 05/14/22 Catherine Cm MD [address] [place] [address] [place], [place] 429405 Cardiovascular Disease 07/21/22 Valery Veronica, PA-C [address] [place] [address] 966125 Physician Commonwealth Attorney Dermatology 07/21/22 Brea Quinn APRN TECHNOLOGY COACH 500 [place], [place] 867845 Nurse Practitioner Dermatology 09/21/22 Alfonso Renteria MD 5775 [facility] [address] 200 [place], [place] 0[address]66 Assigned Neuroscience Provider 04/02/23 Radha Lomeli APRN TECHNOLOGY COACH [address] [place] 4674100 [place], [place] 154095 Assigned Heart and Vascular Provider 05/28/23 Jelena David OD [address] [facility] [address] [place] [id number] Ophthalmology 06/15/23 Esha Grimm PA-C [address] [place] [phone] Assigned PCP 07/16/23 Valery Veronica PA-C 9 [place], [place] 2[address]95 Physician Commonwealth Attorney Dermatology 09/19/23 Rey Tay MD 909 [place], [place] 156[address] Gastroenterology 09/20/23 Rocky Zepeda DO 500 [place] [address] Physician Gastroenterology 09/20/23 Philip Dumont MD 516 [place] [address] Physician Ophthalmology 09/22/23 Meredith Carrera PA-C 909 [place] [address] Assigned Gastroenterology Provider 11/01/23 Neil Kent MD [address] [address] Dermatology 11/02/23 [place] [address] [address] Neurological Surgery 12/26/23 Audrey Waite PA-C [address] [place] [address] Physician Commonwealth Attorney Dermatology 02/28/24 Valery Veronica PA-C 967423 [address], [place] [address] Physician Commonwealth Attorney Dermatology 04/10/24 Herminia Hatch MD [facility]5 [place] [address] Assigned Rheumatology Provider 07/02/24 documented as of this encounter
--- OUTSIDE RECORDS SUMMARY | 2024-08-28 19:12 | XMS_ITS | Encounter Summary ---
Author Organization [place] Address [address] [place] [address] Care Team Providers Care Caretaker Grounds Name Role Phone Diana Desir [facility] Unavailable [phone] Rain Galaviz PAUcheC Unavailable [phone] Tavia Wyatt MD Unavailable Erica Farrell PUMP OPERATOR [employer]PRODUCTS SCHOOL DIRECTOR Unavailable Rich Barrett MD Unavailable [phone] Neil Kent MD Unavailable Kendrick Desirelle Stanislav [facility] Unavailable Livan Sharif MD Unavailable Catherine Cm MD Unavailable + Valery Veronica-C Unavailable Brea Quinn PUMP OPERATOR [employer] SCHOOL DIRECTOR Unavailable Alfonso Renteria MD Unavailable [phone] Esha GrimmC Primary Care Provider Radha Lomeli PUMP OPERATOR [employer] SCHOOL DIRECTOR Unavailable Jelena David OD Unavailable Esha Grimm PA-C Unavailable [phone] Valery VeronicaC Unavailable [phone] Rey Tay MD Unavailable Rocky eZpeda DO Unavailable Philip Dumont MD Unavailable [phone] Meredith CarreraC Unavailable [phone] Neil Kent MD Unavailable Juan Pablo Emmanuel MD Unavailable [phone] Audrey WaiteC Unavailable [phone] Valery VeronicaC Unavailable [phone] Herminia Hatch MD Unavailable Encounter Details Date Type Department Care Team (Late st Contact Info) Description 06/06/2024 Orders Only [facility] [address] [place] [address] Outside, Provider Social History Tobacco Use Types [...] Score 1 02/07/2024 [facility] of Occupat ional [facility] - [...] exercise at this level? 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 Gender Identity Female 03/02/2021 5:45 PM CDT Sexual Orientation Straight 02/28/2020 12 :51 AM CDT documented as of this encounter Plan of Treatment Upcoming Encounters Date Type Department Care Team (Late st Contact Info) Description 10/23/2024 9:30 AM CDT Office Visit [facility] Neurology [address], [address] [place] [address] [place] [address] [place] [facility] [place] [address] Johnny Penn MD 160[address] [facility] [place] [address] documented as of this encounter Procedures Procedure Name Priority Date/Time Associated Diagnosis Comments HLA RESULT REPORT 06/06/2024 2:04 PM JEWELRY DRILLING MACHINE OPERATOR documented in this encounter Results * HLA Result Report (06/06/2024 2:04 PM JEWELRY DRILLING MACHINE OPERATOR) us Provider Outside LAB - IMMUNOLOGY ORDERABLES Fin al Result documented in this encounter Visit Diagnoses Not on filedocumented in this encounter Additional Health Concerns Assessment Noted Time PHQ-9 Depression Total Score: 3 02/07/20 24 9:33 AM CDT documented as of this encounter Care Teams Caretaker Grounds Relationship Specialty Start Date End Date Esha Grimm PA-C [address] [place] [address] PCP - General Family Medicine 05/04/23 Diana Desir, [facility] [address] [place] [address] Pharmacist Pharmacist 04/17/21 Rain Galaviz PA-C [address] [place] [address] [address] [place] [address] Physician Parts Data Writer Dermatology 04/28/21 Tavia Wyatt MD [address] [place] [address] [address] [place] [address] Dermatology 07/14/21 Erica Farrell APRN SCHOOL DIRECTOR 6405 [facility] [address] [place] [address] Nurse Practitioner Cardiovascular Disease 09/09/21 Rich Barrett MD 516 [facility] 9[address] [place], [place] [address]545 Physician Ophthalmology 01/21/22 Neil Kent MD 500 [place] [address] Dermatology 02/24/22 Diana Desir, [facility] [address] [place] [address] Assigned [place] Pharmacist 04/07/22 Livan Sharif MD 6[address] [facility] [address] [place] [address] Cardiovascular Disease 05/14/22 Catherine Cm MD [address] [facility]00 [place] [address] Cardiovascular Disease 07/21/22 Valery Veronica PA-C [address] [place] [address] 543625 Physician Parts Data Writer Dermatology 07/21/22 Brea Quinn APRN SCHOOL DIRECTOR [address] [place] [address] 828735 Nurse Practitioner Dermatology 09/21/22 Alfonso Renteria MD 5775 [facility] 200 [place], [place] 908736 Assigned Neuroscience Provider 04/02/23 Radha Lomeli APRN SCHOOL DIRECTOR [address] [facility]00 [place] [address] Assigned Heart and Vascular Provider 05/28/23 Jelena David OD [address] [facility] [address] [place] [id number] Ophthalmology 06/15/23 Esha Grimm PA-C [address] [place] [address] Assigned PCP 07/16/23 Valery Veronica PA-C 9 [place] [address] Physician Parts Data Writer Dermatology 09/19/23 Rey Tay MD [address] [place] [address] 144265 MD Gastroenterology 09/20/23 Rocky Zepeda DO [address] [place] [address] 818895 Physician Gastroenterology 09/20/23 Philip Dumont MD [address] [place] [address] 920585 Physician Ophthalmology 09/22/23 Meredith Carrera PA-C 9 [place], [place] 879165 Assigned Gastroenterology Provider 11/01/23 Neil Kent MD [address] [address] Dermatology 11/02/23 [place] [address] [address] [facility] [place], [place] 854937 Neurological Surgery 12/26/23 Audrey Waite PA-C 500 [place] [address] Physician Parts Data Writer Dermatology 02/28/24 Valery Veronica PA-C [id number] [place] [address] Physician Parts Data Writer Dermatology 04/10/24 Herminia Hatch MD [address] [place] [address] Assigned Rheumatology Provider 07/02/24 documented as of this encounter
--- OUTSIDE RECORDS SUMMARY | 2024-08-28 19:12 | XMS_ITS | Encounter Summary ---
Author Organization [place] Address [address] [place] [address] Care Team Providers Care Green Material Value Added Assessor Name Role Phone Diana Desir [facility] Unavailable Rain Galaviz PA-C Unavailable Tavia Wyatt MD Unavailable Erica Farrell APRN DX BOARD OPERATOR Unavailable Rich Barrett MD Unavailable [phone] Neil [place] MD Unavailable Diana Desir [facility] Unavailable Livan Sharif MD Unavailable Catherine Cm MD Unavailable + Valery Veronica PA-C Unavailable Brea Quinn TUBE WORKER DX BOARD OPERATOR Unavailable Brea Quinn TUBE WORKER DX BOARD OPERATOR Unavailable Jose Francisco Johnson MD Unavailable Alfonso Renteria MD Unavailable [phone] Esha Grimm PA-C Primary Care Provider Radha Lomeli APRN DX BOARD OPERATOR Unavailable Jelena David OD Unavailable Pao Joseph RN Unavailable Unavailable Esha Grimm PA-C Unavailable [phone] Valery Veronica PA-C Unavailable [phone] Rey Tay MD Unavailable Rocky Zepeda DO Unavailable Philip Dumont MD Unavailable [phone] Meredith Carrera PA-C Unavailable [phone] Neil [place] MD Unavailable Juan Pablo Emmanuel MD Unavailable [phone] Audrey Waite PA-C Unavailable [phone] Valery Veronica PA-C Unavailable Herminia Hatch MD Unavailable Reason for Visit * Reason Onset Date Comments Outreach 08/01/2023 Encounter Details Date Type Department Care Team (Late st Contact Info) Description 08/01/2023 [facility] Medical Advice [facility] [address] [place] [address] Esha Grimm PA-C [id number] [place] [address] Outreach Social History Tobacco Use Types [...] Score 0 06/20/2023 [facility] - Occupational Stress [...] CDT Legal Sex Female 4:13 AM CHIEF MEDICAL OFFICER Gender Identity Female 03/02/2021 5:45 PM CDT Sexual Orientation Straight 02/28/2020 12 :51 AM CDT documented as of this encounter Miscellaneous Notes * Telephone Encounter - Pao Joseph RN - 08/01/2023 2:31 PM CST Esha Grimm PA-C- ANGEL LUIS. See pt's Mychart messages. Routed to PCP Pao Marcos RN PAL (Patient Advocate Liaison) [facility] F MEDICAL OFFICER documented in this encounter Plan of Treatment Upcoming Encounters Date Type Department Care Team (Late st Contact Info) Description 10/23/2024 9:30 AM CDT Office Visit [facility] Neurology [facility] - [address], [address] [place] [phone] [place] [address] [place], [place] [phone] Johnny Penn MD [address] [place] 807345 documented as of this encounter Visit Diagnoses Not on filedocumented in this encounter Additional Health Concerns Infection Onset Date Last Indicated Resolved Time Rule Out COVID-19 12/26/2023 12/26/2023 12/26/2023 9:50 AM CDT Rule Out COVID-19 04/09/2024 04/09/2024 04/10/2024 6:48 PM CDT Assessment Noted Time PHQ-9 Depression Total Score: 4 06/20/20 23 8:40 AM CHIEF MEDICAL OFFICER documented as of this encounter Care Teams Green Material Value Added Assessor Relationship Specialty Start Date End Date Esha Grimm PA-C [address] [place] [address] PCP - General Family Medicine 05/04/23 Diana Desir, [facility] 3033 [place] [address] Pharmacist Pharmacist 04/17/21 Rain Galaviz PA-C [address] [place] [address] [address] [place] [address] Physician Layout Former Dermatology 04/28/21 Tavia Wyatt MD [address] [place] [address] [address] [place] [address] Dermatology 07/14/21 Erica Farrell APRN DX BOARD OPERATOR [address] [place], [place] [address] Nurse Practitioner Cardiovascular Disease 09/09/21 Rich Barrett MD 516 [facility] 9A [place] [address] Physician Ophthalmology 01/21/22 Neil Kent MD 500 [place], [place] 943505 Dermatology 02/24/22 Diana Desir, [facility] 30[address] [place], [place] 383186 Assigned [place] Pharmacist 04/07/22 Livan Sharif MD [address] [place] [address] [place], [place] 8634[address] Cardiovascular Disease 05/14/22 Catherine Cm MD [address] [place], [place] 489795 Cardiovascular Disease 07/21/22 Valery Veronica, PA-C 909 [place], [place] 209215 Physician Layout Former Dermatology 07/21/22 Brea Quinn APRN DX BOARD OPERATOR 500 [place], [place] 431625 Nurse Practitioner Dermatology 09/21/22 Brea Quinn APRN DX BOARD OPERATOR 6401 [facility] [place] [address] Assigned Surgical Provider 10/09/22 05/01/24 [place] [address] [place] [address] Assigned Musculoskeletal Provider 10/09/22 05/01/24 lAfonso Renteria MD [address] [facility] 200 [place], [place] 379116 Assigned Neuroscience Provider 04/02/23 Radha Lomeli APRN DX BOARD OPERATOR [address] [facility] [address] [place] [address] Assigned Heart and Vascular Provider 05/28/23 Jelena David OD 3305 [facility] [place] [address] Ophthalmology 06/15/23 Pao Joseph, RN Personal Advocate & Liaison (PAL) Nurse 08/01/23 11/07/23 Esha Grimm PA-C [address] [place] [phone] Assigned PCP 07/16/23 Valery Veronica PA-C 9 [place], [place] 136125 Physician Layout Former Dermatology 09/19/23 Rey Tay MD 909 [place], [place] 386275 Gastroenterology 09/20/23 Rocky Zepeda DO 500 [place] [address] Physician Gastroenterology 09/20/23 Philip Dumont MD 516 [place] [address] Physician Ophthalmology 09/22/23 Meredith Carrera PA-C 909 [place] [address] Assigned Gastroenterology Provider 11/01/23 Neil Kent MD [address] [address] MD Dermatology 11/02/23 [place] [address] [address] Neurological Surgery 12/26/23 Audrey Waite PA-C 500 [place] [address] Physician Layout Former Dermatology 02/28/24 Valery Veronica PA-C [address]995 [address] [address] Physician Layout Former Dermatology 04/10/24 Herminia Hatch MD [facility]5 [place], [place] 3955[address] Assigned Rheumatology Provider 07/02/24 documented as of this encounter
--- OUTSIDE RECORDS SUMMARY | 2024-08-28 19:12 | XMS_ITS | Encounter Summary ---
Author Organization [place] Address [address] [place] [address] Care Team Providers Care Van Driver Name Role Phone Diana Desir [facility] Unavailable Rain Galaviz PAUcheC Unavailable Tavia Wyatt MD Unavailable Erica Farrell POLICE COMMUNICATIONS DISPATCHER LOGISTICS AND PLANNING MANAGER Unavailable Rich Barrett MD Unavailable [phone] Neil Kent MD Unavailable Kendrick Desirelle Stanislav [facility] Unavailable Livan Sharif MD Unavailable Catherine Cm MD Unavailable + Valery Veronica-C Unavailable Brea Quinn POLICE COMMUNICATIONS DISPATCHER LOGISTICS AND PLANNING MANAGER Unavailable Alfonso Renteria MD Unavailable [phone] Esha GrimmC Primary Care Provider Radha Lomeli POLICE COMMUNICATIONS DISPATCHER LOGISTICS AND PLANNING MANAGER Unavailable Jelena David OD Unavailable Esha Grimm PA-C Unavailable [phone] Valery Veronica PA-C Unavailable [phone] Rey Tay MD Unavailable Rocky Zepeda DO Unavailable Philip Dumont MD Unavailable [phone] Meredith Carrera-C Unavailable [phone] Neil Kent MD Unavailable Juan Pablo Emmanuel MD Unavailable [phone] Audrey Waite PA-C Unavailable [phone] Valery Veronica PA-C Unavailable [phone] Herminia Hatch MD Unavailable Encounter Details Date Type Department Care Team (Late st Contact Info) Description 06/20/2024 MyC Medical Advice [address] [address] Carley Myles RN Social History [...] Answer Date Recorded PHQ-2 Score 1 02/07/2024 [facility] of Occupat ional [...] exercise at this level? 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 Gender Identity Female 03/02/2021 5:45 PM CDT Sexual Orientation Straight 02/28/2020 12 :51 AM CDT documented as of this encounter Plan of Treatment Upcoming Encounters Date Type Department Care Team (Late st Contact Info) Description 10/23/2024 9:30 AM CDT Office Visit [facility] Neurology [address], [address] [place] [address] [place] [address] [id number] Johnny Penn MD [address] [place] 584625 documented as of this encounter Visit Diagnoses Not on filedocumented in this encounter Additional Health Concerns Assessment Noted Time PHQ-9 Depression Total Score: 3 02/07/20 24 9:33 AM CDT documented as of this encounter Care Teams Van Driver Relationship Specialty Start Date End Date Esha Grimm PA-C [address] [facility] [phone] PCP - General Family Medicine 05/04/23 Diana Desir, [facility] [address] [place] [address] Pharmacist Pharmacist 04/17/21 Rain Galaviz PA-C [address] [place] [address] [address] [facility] [place] [address] Physician Hotel Room Attendant Dermatology 04/28/21 Tavia Wyatt MD [address] [place] [address] [address] [facility] [place] [address] Dermatology 07/14/21 Erica Farrell APRN LOGISTICS AND PLANNING MANAGER [address] [place] 457275 Nurse Practitioner Cardiovascular Disease 09/09/21 Rich Barrett MD [address] 236[address] Physician Ophthalmology 01/21/22 Neil Kent MD [address] [place] [address] Dermatology 02/24/22 Diana Desir, [facility] [address] [place] [address] Assigned MTM Pharmacist 04/07/22 Livan Sharif MD [address] [place] [address] Cardiovascular Disease 05/14/22 Catherine Cm MD [address] [place] [address] Cardiovascular Disease 07/21/22 Valery Veronica PA-C [address] [place] [address] 926115 Physician Hotel Room Attendant Dermatology 07/21/22 Brea Quinn APRN LOGISTICS AND PLANNING MANAGER [address] [place] [address] 295205 Nurse Practitioner Dermatology 09/21/22 Alfonso Renteria MD 5775 [facility] 200 [place], [place] 631426 Assigned Neuroscience Provider 04/02/23 Radha Lomeli APRN LOGISTICS AND PLANNING MANAGER [address] [place] [address] Assigned Heart and Vascular Provider 05/28/[address] [facility] [place] [address] Ophthalmology 06/15/23 Esha Grimm PA-C [address] [place] [address] Assigned PCP 07/16/23 Valery Veronica PA-C [address] [place] [address] 336835 Physician Hotel Room Attendant Dermatology 09/19/23 eRy Tay MD 909 [place], [place] 872185 MD Gastroenterology 09/20/23 Rocky Zepeda DO 500 [place] [address] Physician Gastroenterology 09/20/23 Philip Dumont MD 516 [place], [place] 585345 Physician Ophthalmology 09/22/23 Meredith Carrera PA-C 909 [place], [place] 778765 Assigned Gastroenterology Provider 11/01/23 Neil Kent MD [address] [place] [address] 806820 Dermatology 11/02/23 [place] [address] [place] [place], [place] [address] Neurological Surgery 12/26/23 Audrey Waite PA-C 500 [place] [address] Physician Hotel Room Attendant Dermatology 02/28/24 Valery Veronica PA-C 500562 [place], [place] [address] Physician Hotel Room Attendant Dermatology 04/10/24 Herminia Hatch MD [facility] [place] [address] Assigned Rheumatology Provider 07/02/24 documented as of this encounter
--- OUTSIDE RECORDS SUMMARY | 2024-08-28 19:12 | XMS_ITS | Encounter Summary ---
Author Organization [place] Address [address] [place] [address] Care Team Providers Care Supervisor Sample Name Role Phone Diana Desir [facility] Unavailable Rain Galaviz PAUcheC Unavailable Tavia Wyatt MD Unavailable Erica Farrell BILLET HEATER OPERATOR EXECUTIVE SEARCH CONSULTANT Unavailable Rich Barrett MD Unavailable [phone] Neil Kent MD Unavailable Kendrick Desirelle Stanislav [facility] Unavailable Livan Sharif MD Unavailable Catherine Cm MD Unavailable + Valery Veronica-C Unavailable Brea Quinn BILLET HEATER OPERATOR EXECUTIVE SEARCH CONSULTANT Unavailable Alfonso Renteria MD Unavailable [phone] Esah GrimmC Primary Care Provider Radha Lomeli BILLET HEATER OPERATOR EXECUTIVE SEARCH CONSULTANT Unavailable Jelena David OD Unavailable Esha Grimm PA-C Unavailable [phone] Valery Veronica PA-C Unavailable [phone] Rey Tay MD Unavailable Rocky Zepeda DO Unavailable Philip Dumont MD Unavailable [phone] Meredith CarreraC Unavailable [phone] Neil Kent MD Unavailable Juan Pablo Emmanuel MD Unavailable [phone] Audrey Waite-C Unavailable [phone] Valery Veronica-C Unavailable [phone] Herminia Hatch MD Unavailable Encounter Details Date Type Department Care Team (Late st Contact Info) Description 06/21/2024 MyC Medical Advice [address] [address] Antonella Eldridge RN Social [...] 1 02/07/2024 [facility] of Occupat ional [facility] - Occupational Stress Questionnaire Answer [...] exercise at this level? 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 Gender Identity Female 03/02/2021 5:45 PM CDT Sexual Orientation Straight 02/28/2020 12 :51 AM CDT documented as of this encounter Plan of Treatment Upcoming Encounters Date Type Department Care Team (Late st Contact Info) Description 10/23/2024 9:30 AM CDT Office Visit [facility] Neurology [address], [address] [place] [address] [place] [address] [address] [place] [id number] Johnny Penn MD 0002 [facility] [place] [address] documented as of this encounter Visit Diagnoses Not on filedocumented in this encounter Additional Health Concerns Assessment Noted Time PHQ-9 Depression Total Score: 3 02/07/20 24 9:33 AM CDT documented as of this encounter Care Teams Supervisor Sample Relationship Specialty Start Date End Date Esha Grimm PA-C [address] [facility] [place] [address] PCP - General Family Medicine 05/04/23 Diana Desir, [facility] [address] [place] [address] Pharmacist Pharmacist 04/17/21 Rain Galaviz PA-C [address] [place] [address] [address] [facility] [address] Physician Records Management Assistant Dermatology 04/28/21 Tavia Wyatt MD [address] [place] [address] [address] [place] [address] Dermatology 07/14/21 Erica Farrell APRN EXECUTIVE SEARCH CONSULTANT [address] [place] 122275 Nurse Practitioner Cardiovascular Disease 09/09/21 Rich Barrett MD [address] [place] [address] 443055 Physician Ophthalmology 01/21/22 Neil Kent MD [address] [place] [address] Dermatology 02/24/22 Diana Desir [facility] [address] [place] [address] Assigned MTM Pharmacist 04/07/22 Livan Sharif MD [address] [place] [address] Cardiovascular Disease 05/14/22 Catherine Cm MD [address] [facility] [address] [place] [address] Cardiovascular Disease 07/21/22 Valery Veronica PA-C [address] [place] [address] 052155 Physician Records Management Assistant Dermatology 07/21/22 Brea Quinn APRN EXECUTIVE SEARCH CONSULTANT 500 [place], [place] 781715 Nurse Practitioner Dermatology 09/21/22 Alfonso Renteria MD 5775 [facility] 200 [place], [place] [address]996 Assigned Neuroscience Provider 04/02/23 Radha Lomeli APRN EXECUTIVE SEARCH CONSULTANT 6405 [facility] [address] [place] [address] Assigned Heart and Vascular Provider 05/28/23 Jelena David OD [address] [facility] [place] [address] Ophthalmology 06/15/23 Esha Grimm PA-C [address] [place] [address] Assigned PCP 07/16/23 Valery Veronica PA-C [address] [place] [address] 209975 Physician Records Management Assistant Dermatology 09/19/23 Rey Tay MD 909 [place], [place] 919585 MD Gastroenterology 09/20/23 Rocky Zepeda DO 500 [place] [address] Physician Gastroenterology 09/20/23 Philip Dumont MD 516 [place] [address] Physician Ophthalmology 09/22/23 Meredith Carrera PA-C 9 [place] [address] Assigned Gastroenterology Provider 11/01/23 Neil Kent MD [address] [place] [address] 515980 Dermatology 11/02/23 [place] [address] [address] [facility] [place], [place] 667547 Neurological Surgery 12/26/23 Audrey Waite PA-C 500 [place] [address] Physician Records Management Assistant Dermatology 02/28/24 Valery Veronica PA-C [address] [place] [address] Physician Records Management Assistant Dermatology 04/10/24 Herminia Hatch MD [address] [place] [address] Assigned Rheumatology Provider 07/02/24 documented as of this encounter
--- OUTSIDE RECORDS SUMMARY | 2024-08-28 19:12 | XMS_ITS | Encounter Summary ---
Author Organization [place] Address [address] [place] [address] Care Team Providers Care Data Processing Systems Consultant Name Role Phone Diana Desir [facility] Unavailable Rain Galaviz PAUcheC Unavailable [phone] Tavia Wyatt MD Unavailable Erica Farrell LAST MODEL MAKER PROBATION MANAGER Unavailable Rich Barrett MD Unavailable [phone] Neil Kent MD Unavailable Kendrick Desirelle Stanislav [facility] Unavailable Livan Sharif MD Unavailable Catherine Cm MD Unavailable + Valery Veronica-C Unavailable Brea Quinn LAST MODEL MAKER PROBATION MANAGER Unavailable Alfonso Renteria MD Unavailable [phone] Esha GrimmC Primary Care Provider Radha Lomeli LAST MODEL MAKER PROBATION MANAGER Unavailable Jelena David OD Unavailable Esha Grimm PA-C Unavailable [phone] Valery VeronicaC Unavailable [phone] Rey Tay MD Unavailable Rocky Zepeda DO Unavailable Philip Dumont MD Unavailable [phone] Meredith CarreraC Unavailable [phone] Neil Kent MD Unavailable Juan Pablo Emmanuel MD Unavailable [phone] Audrey WaiteC Unavailable [phone] Valery eVronicaC Unavailable [phone] Herminia Hatch MD Unavailable Encounter Details Date [...] Answer Date Recorded PHQ-2 Score 1 02/07/2024 [facility] - Occupational Stress Questionnaire Answer [...] exercise at this level? 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 Gender Identity Female 03/02/2021 5:45 PM CDT Sexual Orientation Straight 02/28/2020 12 :51 AM CDT documented as of this encounter Plan of Treatment Upcoming Encounters Date Type Department Care Team (Late st Contact Info) Description 10/23/2024 9:30 AM CDT Office Visit [facility] Neurology [address], [address] [place] [address] [place] [address] [place] [address] Johnny Penn MD 6545 [facility] [place] 199675 documented as of this encounter Visit Diagnoses Not on filedocumented in this encounter Additional Health Concerns Assessment Noted Time PHQ-9 Depression Total Score: 3 02/07/20 24 9:33 AM CDT documented as of this encounter Care Teams Data Processing Systems Consultant Relationship Specialty Start Date End Date Esha Grimm PA-C [address] [place] [address] PCP - General Family Medicine 05/04/23 Diana Desir, [facility] [address] [place] [address] Pharmacist Pharmacist 04/17/21 Rain Galaviz PA-C [address] [place] [address] [address] [place] [address] Physician Sash Maker Dermatology 04/28/21 Tavia Wyatt MD [address] [place] [address] [address] [place] [address] Dermatology 07/14/21 Erica Farrell APRN PROBATION MANAGER [address] [place] 612795 Nurse Practitioner Cardiovascular Disease 09/09/21 Rich Barrett MD 516 [facility] 9A [place], [place] [address] Physician Ophthalmology 01/21/22 Neil Kent MD 500 [place], [place] 504525 Dermatology 02/24/22 [facility] [address] [place] [address] Assigned MTM Pharmacist 04/07/22 Livan Sharif MD [address] [place] [address] Cardiovascular Disease 05/14/22 Catherine Cm MD [address] [place] [address] Cardiovascular Disease 07/21/22 Valery Veronica PA-C [address] [place] [address] 388665 Physician Sash Maker Dermatology 07/21/22 Brea Quinn APRN PROBATION MANAGER [address] [place] [address] 759755 Nurse Practitioner Dermatology 09/21/22 Alfonso Renteria MD [address] [facility] 200 [place], [place] 044276 Assigned Neuroscience Provider 04/02/23 Radha Lomeli APRN PROBATION MANAGER [address] [place] [address] Assigned Heart and Vascular Provider 05/28/23 Jelena David OD [address] [place] [address] [place] [address] Ophthalmology 06/15/23 Esha Grimm PA-C [address] [place] [address] Assigned PCP 07/16/23 Valery Veronica PA-C [address] [place] [address] 660505 Physician Sash Maker Dermatology 09/19/23 Rey Tay MD [address] [place] [address] Gastroenterology 09/20/23 Rocky Zepeda DO 500 [place] [address] Physician Gastroenterology 09/20/23 Philip Dumont MD 516 [place] [address] Physician Ophthalmology 09/22/23 Meredith Carrera PA-C 909 [place] [address] Assigned Gastroenterology Provider 11/01/23 Neil Kent MD [address] [address] MD Dermatology 11/02/23 [place] [address] 892057 Neurological Surgery 12/26/23 Audrey Waite PA-C 500 [place] [address] Physician Sash Maker Dermatology 02/28/24 Valery Veronica PA-C 703184 [place] [address] Physician Sash Maker Dermatology 04/10/24 Herminia Hatch MD [facility]5 [place], [place] [address]25 Assigned Rheumatology Provider 07/02/24 documented as of this encounter
--- OUTSIDE RECORDS SUMMARY | 2024-08-28 19:12 | XMS_ITS | Encounter Summary ---
Author Organization [place] Address [address] [place] [address] Care Team Providers Care Paper Machine Backtender Name Role Phone Diana Desir [facility] Unavailable Rain Galaviz PAUcheC Unavailable Tavia Wyatt MD Unavailable Erica Farrell SIGN FABRICATOR DBA Unavailable Rich Barrett MD Unavailable [phone] Neil Kent MD Unavailable Kendrick Desirelle Stanislav [facility] Unavailable Livan Sharif MD Unavailable Catherine Cm MD Unavailable + Valery Veronica-C Unavailable Brea Quinn SIGN FABRICATOR DBA Unavailable Alfonso Renteria MD Unavailable [phone] Esha GrimmC Primary Care Provider Radha Lomeli SIGN FABRICATOR DBA Unavailable Jelena David OD Unavailable [place], Esha M PA-C Unavailable [phone] Valery Veronica PA-C Unavailable [phone] Rey Tay MD Unavailable Rocky Zepeda DO Unavailable Philip Dumont MD Unavailable [phone] Meredith Carrera-C Unavailable [phone] Neil Kent MD Unavailable Juan Pablo Emmanuel MD Unavailable [phone] Audrey Waite PA-C Unavailable [phone] Valery Veronica-C Unavailable [phone] Herminia Hatch MD Unavailable Encounter Details Date Type Department Care Team (Late st Contact Info) Description 06/05/2024 [facility] Medical Advice [address] [address] Herminia Hatch MD [address] [place] [address] Social History Tobacco Use Types Packs/Day [...] exercise at this level? 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 Gender Identity Female 03/02/2021 5:45 PM CDT Sexual Orientation Straight 02/28/2020 12 :51 AM CDT documented as of this encounter Plan of Treatment Upcoming Encounters Date Type Department Care Team (Late st Contact Info) Description 10/23/2024 9:30 AM CDT Office Visit [facility] Neurology [address], [address] [place] [address] [place] [address] [place] [address] Johnny Penn MD [address] [place] [address] documented as of this encounter Visit Diagnoses Not on filedocumented in this encounter Additional Health Concerns Assessment Noted Time PHQ-9 Depression Total Score: 3 02/07/20 24 9:33 AM CDT documented as of this encounter Care Teams Paper Machine Backtender Relationship Specialty Start Date End Date Esha Grimm PA-C [address] [place] [address] PCP - General Family Medicine 05/04/23 Diana Desir, [facility] [address] [place] [address] Pharmacist Pharmacist 04/17/21 Rain Galaviz PA-C [address] [place] [address] [address] [place] [address] Physician Dip Filler Dermatology 04/28/21 Tavia Wyatt MD [address] [place] [address] [address] [place] [address] Dermatology 07/14/21 Erica Farrell APRN DBA [address] [place] 8927000 [place], [place] 991615 Nurse Practitioner Cardiovascular Disease 09/09/21 Rich Barrett MD [address] 176315 Physician Ophthalmology 01/21/22 Neil Kent MD [address] [place] [address] 804835 Dermatology 02/24/22 Diana Desir, [facility] [address] [place] [address] Assigned MTM Pharmacist 04/07/22 Livan Sharif MD [address], [facility] [address] [place] 797045 Cardiovascular Disease 05/14/22 Catherine Cm MD [address] [place] 293305 Cardiovascular Disease 07/21/22 Valery Veronica, PA-C 909 [place], [place] 10[address]65 Physician Dip Filler Dermatology 07/21/22 Brea Quinn APRN DBA 500 [place], [place] 407445 Nurse Practitioner Dermatology 09/21/22 Alfonso Renteria MD 5775 [facility] 200 [place], [place] 755236 Assigned Neuroscience Provider 04/02/23 Radha Lomeli APRN DBA [address] [place] [address] Assigned Heart and Vascular Provider 05/28/23 Jelena David OD [facility] [place] [address] Ophthalmology 06/15/23 Esha Grimm PA-C [address] [place] [address] Assigned PCP 07/16/23 Valery Veronica PA-C 909 [place] [address] Physician Dip Filler Dermatology 09/19/23 Rey Tay MD [address] [place] [address] MD Gastroenterology 09/20/23 Rocky Zepeda DO 500 [place] [address] Physician Gastroenterology 09/20/23 Philip Dumont MD [address] [place] [address] Physician Ophthalmology 09/22/23 Meredith Carrera PA-C [address] [place] [address] Assigned Gastroenterology Provider 11/01/23 Neil Kent MD [address] [address] Dermatology 11/02/23 [place] [address] [place] [address] [address] Neurological Surgery 12/26/23 Audrey Waite PA-C 500 [place] [address] Physician Dip Filler Dermatology 02/28/24 Valery Veronica PA-C [address]995 [address] [place] [address] Physician Dip Filler Dermatology 04/10/24 Herminia Hatch MD [address] [place] [address] Assigned Rheumatology Provider 07/02/24 documented as of this encounter
--- OUTSIDE RECORDS SUMMARY | 2024-08-28 19:12 | XMS_ITS | Encounter Summary ---
Author Organization [place] Address [address] [place] [address] Care Team Providers Care Client Services Account Manager Name Role Phone Diana Desir [facility] Unavailable [phone] Rain Galaviz PA-C Unavailable Tavia Wyatt MD Unavailable [phone] Erica Farrell APRN TREASURY ASSOCIATE Unavailable Rich Barrett MD Unavailable [phone] Neil Kent MD Unavailable Diana Desir [facility] Unavailable [phone] Livan Sharif MD Unavailable Catherine Cm MD Unavailable + Valery Veronica-C Unavailable Brea Quinn MANAGER MATERIALS MANAGEMENT TREASURY ASSOCIATE Unavailable Brea Quinn MANAGER MATERIALS MANAGEMENT TREASURY ASSOCIATE Unavailable Jose Francisco Johnson MD Unavailable Sydnie Martinez RN Unavailable Unavailable Alfonso Renteria MD Unavailable [phone] Esha Grimm PA-C Primary Care Provider [phone] Cheng Todd PA-C Unavailable Radha Lomeli APRN TREASURY ASSOCIATE Unavailable Jelena David OD Unavailable Pao Joseph RN Unavailable Unavailable Esha Grimm PA-C Unavailable [phone] Valery Veronica PA-C Unavailable [phone] Rey Tay MD Unavailable Rocky Zepeda DO Unavailable Philip Dumont MD Unavailable [phone] Meredith Carrera PA-C Unavailable Neil Kent MD Unavailable Juan Pablo Emmanuel MD Unavailable [phone] Audrey Waite PA-C Unavailable JeremíasValery damon PA-C Unavailable [phone] Herminia Hatch MD Unavailable Encounter Details Date Type Department Care Team (Late st Contact Info) Description 07/06/2023 [facility] [address] [place] [address] Esha Grimm PA-C [id number] [place] [address] Social History Tobacco Use Types Packs/Day [...] 06/20/2023 [facility] - [...] exercise at this level? 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 Gender Identity Female 03/02/2021 5:45 PM CDT Sexual Orientation Straight 02/28/2020 12 :51 AM CDT documented as of this encounter Plan of Treatment Upcoming Encounters Date Type Department Care Team (Late st Contact Info) Description 10/23/2024 9:30 AM CDT Office Visit [facility] Neurology Clin[facility] [address] [place] [address], [address] [place] [address] [place] [address] [place] [address] Johnny Penn MD [address] [place] [address] documented as of this encounter Visit Diagnoses Not on filedocumented in this encounter Additional Health Concerns Infection Onset Date Last Indicated Resolved Time Rule Out COVID-19 12/26/2023 12/26/2023 12/26/2023 9:50 AM CDT Rule Out COVID-19 04/09/2024 04/09/2024 04/10/2024 6:48 PM CDT Assessment Noted Time PHQ-9 Depression Total Score: 4 06/20/20 23 8:40 AM SAUSAGE MACHINE OPERATOR documented as of this encounter Care Teams Client Services Account Manager Relationship Specialty Start Date End Date Esha Grimm PA-C [address] [place] [address] PCP - General Family Medicine 05/04/23 Diana Desir, [facility] [address] [place], [place] 871766 Pharmacist Pharmacist 04/17/21 Rain Galaviz PA-C [address] [place] [address] [address] [place] [address] Physician Oyster Picker Dermatology 04/28/21 Tavia Wyatt MD [address] [place] [address] [address] [place], [place] 475[address] Dermatology 07/14/21 Erica Farrell APRN TREASURY ASSOCIATE 6405 [facility] [address] [place] [address] Nurse Practitioner Cardiovascular Disease 09/09/21 Rich Barrett MD 516 [facility] 9A [place] [address] Physician Ophthalmology 01/21/22 Neil Kent MD 500 [place], [place] 0[address]25 Dermatology 02/24/22 Diana Desir, [facility] 3033 [place] [address] Assigned MTM Pharmacist 04/07/22 Livan Sharif MD [address] [place] 929135 Cardiovascular Disease 05/14/22 Catherine Cm MD [address] [place] [address] Cardiovascular Disease 07/21/22 Valery Veronica, PA-C 909 [place], [place] 388775 Physician Oyster Picker Dermatology 07/21/22 Brea Quinn APRN TREASURY ASSOCIATE 500 [place] [address] Nurse Practitioner Dermatology 09/21/22 Brea Quinn APRN TREASURY ASSOCIATE 6401 [facility] [place] 597072 Assigned Surgical Provider 10/09/22 05/01/24 [place] [address] [place] [place] [address] Assigned Musculoskeletal Provider 10/09/22 05/01/24 Sydnie Martinez RN Personal Advocate & Liaison (PAL) Family Medicine 03/28/23 07/31/23 Alfonso Renteria MD 5775 [facility] [address] 200 [place] [address] Assigned Neuroscience Provider 04/02/23 Cheng Todd PA-C [address] [place] [address] Assigned PCP 04/30/23 07/15/23 Radha Lomeli APRN TREASURY ASSOCIATE 6405 [facility] [address] [place] [address] Assigned Heart and Vascular Provider 05/28/23 Jelena David OD [address] [facility] [place] [address] Ophthalmology 06/15/23 Pao Joseph, VJ Personal Advocate & Liaison (PAL) Nurse 08/01/23 11/07/23 Esha Grimm PA-C [address] [place] [address] Assigned PCP 07/16/23 Valery Veronica PA-C [address] [place] [address] 827365 Physician Oyster Picker Dermatology 09/19/23 Rey Tay MD [address] [place] [address] Gastroenterology 09/20/23 Rocky Zepeda DO 500 [place] [address] Physician Gastroenterology 09/20/23 Philip Dumont MD 516 [place] [address] Physician Ophthalmology 09/22/23 Meredith Carrera PA-C [address] [place] [address] Assigned Gastroenterology Provider 11/01/23 Neil Kent MD [address] [address] MD Dermatology 11/02/23 [place] [address] [place] [address] [address] Neurological Surgery 12/26/23 Audrey Waite PA-C 500 [place] [address] Physician Oyster Picker Dermatology 02/28/24 Valery Veronica PA-C [id number] [place] [address] Physician Oyster Picker Dermatology 04/10/24 Herminia Hatch MD [facility]5 [place], [place] [address] Assigned Rheumatology Provider 07/02/24 documented as of this encounter
--- OUTSIDE RECORDS SUMMARY | 2024-08-28 19:12 | XMS_ITS | Encounter Summary ---
Author Organization [place] Address [address] [place] [address] Care Team Providers Care Senior Account Representative Name Role Phone Diana Desir [facility] Unavailable Rain Galaviz PAUcheC Unavailable Tavia Wyatt MD Unavailable Erica Farrell ELECTRICAL LOGGING OPERATOR MULTIFOCAL LENS ASSEMBLER Unavailable Rich Barrett MD Unavailable [phone] Neil Kent MD Unavailable Kendrick Desirelle Stanislav [facility] Unavailable Livan Sharif MD Unavailable Catherine Cm MD Unavailable + Valery Veronica-C Unavailable [phone] Brea Quinn ELECTRICAL LOGGING OPERATOR MULTIFOCAL LENS ASSEMBLER Unavailable Alfonso Renteria MD Unavailable [phone] Esha GrmimC Primary Care Provider [phone] Radha Lomeli ELECTRICAL LOGGING OPERATOR MULTIFOCAL LENS ASSEMBLER Unavailable Jelena David OD Unavailable [place], Esha M PA-C Unavailable [phone] Valery Veronica PA-C Unavailable [phone] Rey Tay MD Unavailable Rocky Zepeda DO Unavailable Philip Dumont MD Unavailable Meredith Carrera PA-C Unavailable [phone] Neil Kent MD Unavailable Juan Pablo Emmanuel MD Unavailable Audrey Waite PA-C Unavailable [phone] Valery Veronica PA-C Unavailable [phone] Herminia Hatch MD Unavailable Reason for Visit * Reason Comments Urgent Care After working out, c hest tightness, pressure, lasted for about 45 minutes, felt nausea, no use of pre workout, hx of SVT Encounter Details Date Type Department Care Team (Late st Contact Info) Description 07/27/2024 5:10 PM KRAFT MILL OPERATOR Office Visit [facility] [place] [address] [place] [address] Amaris Pascal PA-C [address] [place] [address] Chest tightness (Primary Dx) Social History Tobacco [...] Answer Date Recorded PHQ-2 Score 1 02/07/2024 [facility] - Occupational Stress Questionnaire [...] exercise at this level? 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 Gender Identity Female 03/02/2021 5:45 PM CDT Sexual Orientation Straight 02/28/2020 12 :51 AM CDT documented as of this encounter Last Filed Vital Signs Vital Sign Reading Time Taken Comments Blood Pressure 106/67 07/27/2024 5:13 PM KRAFT MILL OPERATOR Pulse 78 07/27/2024 5:13 PM KRAFT MILL OPERATOR Temperature 36.8 C (98.3 F) 07/27/2024 5:13 PM KRAFT MILL OPERATOR Respiratory Rate - - Oxygen Saturation 96% 07/27/2024 5:13 PM KRAFT MILL OPERATOR Inhaled Oxygen Concentration - - Weight 90.7 kg (200 lb) 07/27/2024 5:13 PM KRAFT MILL OPERATOR Height - - Body Mass Index 32.28 05/31/2024 3:37 PM KRAFT MILL OPERATOR documented in this encounter Patient Instructions * Patient Instructions* Amaris Pascal PA-C - 07/27/2024 5:10 PM KRAFT MILL OPERATOR Your exam is reassuring today. Vitals are reassuring. Please keep monitoring symptoms. Please follow-up if any worsening symptoms. T MILL OPERATOR documented in this encounter Progress Notes [...] Symptoms failing to improve. Amaris Pascal PA-C [facility] Dario Alvarez is a 24 year old [...] edema SKIN: no suspicious lesions or rashes T MILL OPERATOR documented in this encounter Plan of Treatment Upcoming Encounters Date Type Department Care Team (Late st Contact Info) Description 10/23/2024 9:30 AM CDT Office Visit [facility] Neurology [facility] [address] [place] [address], [address] [place] [address] [place] [address] [place], [place] [address] Johnny Penn MD 9747 [facility] [place] [id number] documented as of this encounter Visit Diagnoses Diagnosis Chest tightness- Primary Other chest pain documented in this encounter Additional Health Concerns Assessment Noted Time PHQ-9 Depression Total Score: 3 02/07/20 24 9:33 AM CDT documented as of this encounter Care Teams Senior Account Representative Relationship Specialty Start Date End Date Ehsa Grimm PA-C [address] [place] [phone] PCP - General Family Medicine 05/04/23 Diana Desir, [facility] [address] [place] [address] Pharmacist Pharmacist 04/17/21 Rain Galaviz PA-C [address] [place] [address] [address] [facility] [place] [id number] Physician Family Medicine Physician Assistant Dermatology 04/28/21 Tavia Wyatt MD [address] [place] [address] DR RA[address] [facility] [place] [id number] Dermatology 07/14/21 Erica Farrell APRN MULTIFOCAL LENS ASSEMBLER [address] [place], [place] [address] Nurse Practitioner Cardiovascular Disease 09/09/21 Rich Barrett MD [address] [address] Physician Ophthalmology 01/21/22 Neil Kent MD [address] [place] [id number] Dermatology 02/24/22 Diana Desir, [facility] 3033 [place], [place] 397076 Assigned MTM Pharmacist 04/07/22 Livan Sharif MD [address] [place] [address] [place] 9[address]25 Cardiovascular Disease 05/14/22 Catherine Cm MD [address] [place] [address] [place] 296725 Cardiovascular Disease 07/21/22 Valery Veronica, PA-C [address] [place], [place] 156065 Physician Family Medicine Physician Assistant Dermatology 07/21/22 Brea Quinn APRN MULTIFOCAL LENS ASSEMBLER 500 [place] [address] Nurse Practitioner Dermatology 09/21/22 Alfonso Renteria MD 5775 [facility] [address] 200 [place], [place] 691596 Assigned Neuroscience Provider 04/02/23 Radha Lomeli APRN MULTIFOCAL LENS ASSEMBLER 6405 [facility] [address] [place], [place] 002635 Assigned Heart and Vascular Provider 05/28/23 Jelena David OD [address] [facility] [address] [place] [id number] Ophthalmology 06/15/23 Esha Grimm PA-C [address] [place] [phone] Assigned PCP 07/16/23 Valery Veronica PA-C [address] [place] [address] Physician Family Medicine Physician Assistant Dermatology 09/19/23 Rey Tay MD 909 [place] [address] Gastroenterology 09/20/23 Rocky Zepeda DO 500 [place] [address] Physician Gastroenterology 09/20/23 Philip Dumont MD 166 [place] [address] Physician Ophthalmology 09/22/23 Meredith Carrera PA-C [address] [place] [address] Assigned Gastroenterology Provider 11/01/23 Neil Kent MD [address] [address] Dermatology 11/02/23 [place] [address] [place] [address] [address] Neurological Surgery 12/26/23 Audrey Waite PA-C [address] [place] [address] Physician Family Medicine Physician Assistant Dermatology 02/28/24 Valery Veronica PA-C 937242 [address], [place] [address] Physician Family Medicine Physician Assistant Dermatology 04/10/24 Herminia Hatch MD [facility]5 [place], [place] 86[address] Assigned Rheumatology Provider 07/02/24 documented as of this encounter
--- OUTSIDE RECORDS SUMMARY | 2024-08-28 19:12 | XMS_ITS | Encounter Summary ---
Author Organization [place] Address [address] [place] [address] Care Team Providers Care Data Designer Name Role Phone Diana Desir [facility] Unavailable Rain Galaviz PA-C Unavailable Tavia Wyatt MD Unavailable Erica Farrell APRN TANBARK PEELER Unavailable Rich Barrett MD Unavailable [phone] Neil Kent MD Unavailable Diana Desir [facility] Unavailable Livan Sharif MD Unavailable Catherine Cm MD Unavailable + Valery Veronica-C Unavailable [phone] Brea Quinn NURSING SUPPORT WORKER TANBARK PEELER Unavailable Brea Quinn NURSING SUPPORT WORKER TANBARK PEELER Unavailable Jose Francisco Johnson MD Unavailable Sydnie Martinez RN Unavailable Unavailable Alfonso Renteria MD Unavailable [phone] Esha Grimm PA-C Primary Care Provider Radha Lomeli APRN TANBARK PEELER Unavailable Jelena David OD Unavailable Pao Joseph RN Unavailable Unavailable Esha Grimm PA-C Unavailable [phone] Valery Veronica PA-C Unavailable [phone] Rey Tay MD Unavailable Rocky Zepeda DO Unavailable Philip Dumont MD Unavailable [phone] Meredith Carrera PA-C Unavailable Neil Kent MD Unavailable Juan Pablo Emmanuel MD Unavailable Audrey Waite PA-C Unavailable Valery Veronica PA-C Unavailable [phone] Herminia Hatch MD Unavailable Encounter Details Date Type Department Care Team (Late st Contact Info) Description 07/27/2023 MyC Medical Advice [address] [address] Diana Desir, [facility] [address] [place] [address] Social History Tobacco Use Types Packs/Day Years [...] do you attend [facility] or [facility]? 1 to 4 [...] exercise at this level? 30 min 03/10/2023 [place] Depression Scale Answer Date Recorded [place] Depression Score 5 01/14/2021 Last EPDS Self [...] Sex Female 4:13 AM HEALTH AND SAFETY TRAINER Gender Identity Female 03/02/2021 5:45 PM CDT Sexual Orientation Straight 02/28/2020 12 :51 AM CDT documented as of this encounter Plan of Treatment Upcoming Encounters Date Type Department Care Team (Late st Contact Info) Description 10/23/2024 9:30 AM CDT Office Visit [facility] Neurology Clinics [address], [address] [place] [address] [place] [address] [place] [address] Johnny Penn MD [address] [place] [address] documented as of this encounter Visit Diagnoses Not on filedocumented in this encounter Additional Health Concerns Infection Onset Date Last Indicated Resolved Time Rule Out COVID-19 12/26/2023 12/26/2023 12/26/2023 9:50 AM CDT Rule Out COVID-19 04/09/2024 04/09/2024 04/10/2024 6:48 PM CDT Assessment Noted Time PHQ-9 Depression Total Score: 4 06/20/20 8:40 AM HEALTH AND SAFETY TRAINER documented as of this encounter Care Teams Data Designer Relationship Specialty Start Date End Date Esha Grimm PA-C [address] [place] [address] PCP - General Family Medicine 05/04/23 Diana Desir, [facility] [address] [place] [address] Pharmacist Pharmacist 04/17/21 Rain Galaviz PA-C [address] [place] [address] [address] [place] [address] Physician Patient Navigator Dermatology 04/28/21 Tavia Wyatt MD [address] [place] [address] [address] [place] [address] Dermatology 07/14/21 Erica Farrell APRN TANBARK PEELER [address] [facility] [address] [place] [address] Nurse Practitioner Cardiovascular Disease 09/09/21 Rich Barrett MD [address] [facility] 9A [place] [address] Physician Ophthalmology 01/21/22 Neil Kent MD 500 [place] [address] Dermatology 02/24/22 Diana Desir, [facility] [address] [place] [address] Assigned [place] Pharmacist 04/07/22 Livan Sharif MD [address] 303315 Cardiovascular Disease 05/14/22 Catherine Cm MD [address] 465095 Cardiovascular Disease 07/21/22 Valery Veronica, PA-C [address] [place] [address] Physician Patient Navigator Dermatology 07/21/22 Brea Quinn APRN TANBARK PEELER 500 [place] [address] Nurse Practitioner Dermatology 09/21/22 Brea Quinn APRN TANBARK PEELER [address] [place] [address] Assigned Surgical Provider 10/09/22 05/01/24 [place] [address] [address] Assigned Musculoskeletal Provider 10/09/22 05/01/24 Sydnie Martinez RN Personal Advocate & Liaison (PAL) Family Medicine 03/28/23 07/31/23 Alfonso Renteria MD [address] [facility] [address] [place] [address] Assigned Neuroscience Provider 04/02/23 Radha Lomeli APRN TANBARK PEELER [address] [facility] [address] [place] [address] Assigned Heart and Vascular Provider 05/28/23 Jelena David OD [address] [place] [address] Ophthalmology 06/15/23 Pao Joseph, VJ Personal Advocate & Liaison (PAL) Nurse 08/01/23 11/07/23 Esha Grimm PA-C [address] [place] [address] Assigned PCP 07/16/23 Valery Veronica PA-C [address] [place] [address] 354965 Physician Patient Navigator Dermatology 09/19/23 Rey Tay MD [address] [place] [address] 136025 Gastroenterology 09/20/23 Rocky Zepeda DO [address] [place] [address] 32870455 Physician Gastroenterology 09/20/23 Philip Dumont MD [address] [place] [address] 248905 Physician Ophthalmology 09/22/23 Meredith Carrera PA-C 909 [place] [address] Assigned Gastroenterology Provider 11/01/23 Neil Kent MD [address] [address] Dermatology 11/02/23 [place] [address] 324507 Neurological Surgery 12/26/23 Audrey Waite PA-C 500 [place] [address] Physician Patient Navigator Dermatology 02/28/24 Valery Veronica PA-C 030906 [place], [place] [address] Physician Patient Navigator Dermatology 04/10/24 Herminia Hatch MD [address] [place], [place] 17233125 Assigned Rheumatology Provider 07/02/24 documented as of this encounter
--- OUTSIDE RECORDS SUMMARY | 2024-08-28 19:12 | XMS_ITS | Encounter Summary ---
Author Organization [facility] Address [address] [place] [address] Care Team Providers Care Pressed Or Blown Glass Worker Name Role Phone Diana Desir [facility] Unavailable [phone] Rain Galaviz PA-C Unavailable Tavia Wyatt MD Unavailable Erica Farrell APRN COCOA MILL OPERATOR Unavailable Rich Barrett MD Unavailable [phone] Neil Kent MD Unavailable Diana Desir [facility] Unavailable Livan Sharif MD Unavailable Catherine Cm MD Unavailable + Valery Veronica PA-C Unavailable Brea Quinn DB2 DEVELOPER COCOA MILL OPERATOR Unavailable Brea Quinn DB2 DEVELOPER COCOA MILL OPERATOR Unavailable Jose Francisco Johnson MD Unavailable Alfonso Renteria MD Unavailable [phone] Esha Grimm PA-C Primary Care Provider [phone] Radha Lomeli APRN COCOA MILL OPERATOR Unavailable Jelena David OD Unavailable Pao Joseph RN Unavailable Unavailable Esha Grimm PA-C Unavailable [phone] Valery Veronica PA-C Unavailable [phone] Rey Tay MD Unavailable Rocky Zepeda DO Unavailable Philip Dumont MD Unavailable [phone] Meredith Carrera PA-C Unavailable Neil Kent MD Unavailable Juan Pablo Emmanuel MD Unavailable [phone] Audrey Waite PA-C Unavailable [phone] Valery Veronica PA-C Unavailable Herminia Hatch MD Unavailable Reason for Visit * Reason Onset Date Comments Call Back 08/01/2023 Encounter Details Date Type Department Care Team (Late st Contact Info) Description 08/01/2023 Telephone [facility] [address] [place] [address] Esha Grimm PA-C [address] [place] [address] Call Back Social History Tobacco [...] PHQ-2 Score 0 06/20/2023 [facility] - Occupational Stress Questionnaire Answer [...] exercise at this level? 30 min 03/10/2023 [place] Depression Scale Answer Date Recorded [place] Depression Score 5 01/14/2021 Last EPDS Self [...] PM CDT Legal Sex Female 4:13 AM SPACE PHYSICIST Gender Identity Female 03/02/2021 5:45 PM CDT Sexual Orientation Straight 02/28/2020 12 :51 AM CDT documented as of this encounter Miscellaneous Notes * Telephone Encounter - Esha Grimm PA-C - 08/02/2023 7:49 AM CST See telephone encounter. Seen by [facility] who reviewed imaging and note fracture. Custom wrap made for the patient. Esha Grimm PA-C on 08/02/2023 at 7:49 AM E PHYSICIST * Telephone Encounter - Debbie Shahid - [...] we send this information to you in [facility] or would you prefer to receive a phone call?: No preference Okay to leave a detailed message?: Yes at Home number on file [phone] (home) E PHYSICIST documented in this encounter Plan of Treatment Upcoming Encounters Date Type Department Care Team (Late st Contact Info) Description 10/23/2024 9:30 AM CDT Office Visit [facility] Neurology [address], [address] [place] [phone] [place] [address] [facility] [place] [address] Johnny Penn MD [address] [place] 3[address] documented as of this encounter Visit Diagnoses Not on filedocumented in this encounter Additional Health Concerns Infection Onset Date Last Indicated Resolved Time Rule Out COVID-19 12/26/2023 12/26/2023 12/26/2023 9:50 AM CDT Rule Out COVID-19 04/09/2024 04/09/2024 04/10/2024 6:48 PM CDT Assessment Noted Time PHQ-9 Depression Total Score: 4 06/20/20 23 8:40 AM SPACE PHYSICIST documented as of this encounter Care Teams Pressed Or Blown Glass Worker Relationship Specialty Start Date End Date Esha Grimm PA-C [address] [place] [address] PCP - General Family Medicine 05/04/23 Diana Desir, [facility] [address] [place] [address] Pharmacist Pharmacist 04/17/21 Rain Galaviz PA-C [address] [place] [address] [address] [place] [address] Physician Financial Services Specialist Dermatology 04/28/21 Tavia Wyatt MD [address] [place] [address] [address] [place] [id number] Dermatology 07/14/21 Erica Farrell APRN [facility] [address] [place] 960615 Nurse Practitioner Cardiovascular Disease 09/09/21 Rich Barrett MD 516 [facility] 9A [place], [place] 6860[address] Physician Ophthalmology 01/21/22 Neil Kent MD 500 [place], [place] 653395 Dermatology 02/24/22 Diana Desir, [facility] [address] [place] [address] Assigned MTM Pharmacist 04/07/22 Livan Sharif MD [address] [place] [address] Cardiovascular Disease 05/14/22 Catherine Cm MD [address] [place] [address] Cardiovascular Disease 07/21/22 Valery Veronica PA-C [address] [place] [address] Physician Financial Services Specialist Dermatology 07/21/22 Brea Quinn APRN COCOA MILL OPERATOR [address] [place], [place] 829375 Nurse Practitioner Dermatology 09/21/22 Brea Quinn APRN COCOA MILL OPERATOR 6401 [facility] [place] [address] Assigned Surgical Provider 10/09/22 05/01/24 [place] [address] [facility] 300 [place] [address] Assigned Musculoskeletal Provider 10/09/22 05/01/24 Alfonso Renteria MD 57[address] [facility] 200 [place], [place] 492436 Assigned Neuroscience Provider 04/02/23 Radha Lomeli, DB2 DEVELOPER COCOA MILL OPERATOR [address] [facility] [address] [place] 144535 Assigned Heart and Vascular Provider 05/28/23 Jelena David OD [address] [facility] [place] [address] Ophthalmology 06/15/23 Pao Joseph, RN Personal Advocate & Liaison (PAL) Nurse 08/01/23 11/07/23 Esha Grimm PA-C [address] [place] [address] Assigned PCP 07/16/23 Valery Veronica PA-C [address] [place] [address] 097225 Physician Financial Services Specialist Dermatology 09/19/23 Rey Tay MD [address] [place] [address] 996115 MD Gastroenterology 09/20/23 Rocky Zepeda DO [address] [place] [address] 630585 Physician Gastroenterology 09/20/23 Philip Dumont MD [address] [place] [address] 508395 Physician Ophthalmology 09/22/23 Meredith Carrera PA-C [address] [place] [address] Assigned Gastroenterology Provider 11/01/23 Neil Kent MD [address] [place] [address] Dermatology 11/02/23 [place] [address] [address] Neurological Surgery 12/26/23 Audrey Waite PA-C 500 [place] [address] Physician Financial Services Specialist Dermatology 02/28/24 Valery Veronica PA-C [address] [place] [address] Physician Financial Services Specialist Dermatology 04/10/24 Herminia Hatch MD [address] [place] [address] Assigned Rheumatology Provider 07/02/24 documented as of this encounter
--- OUTSIDE RECORDS SUMMARY | 2024-08-28 19:12 | XMS_ITS | Encounter Summary ---
Author Organization [place] Address [address] [place] [address] Care Team Providers Care Call Taker Name Role Phone Diana Desir [facility] Unavailable Rain Galaviz PA-C Unavailable [phone] Tavia Wyatt MD Unavailable Erica Farrell APRN SALES ARCHITECT Unavailable Rich Barrett MD Unavailable [phone] Neil Kent MD Unavailable Diana Desir [facility] Unavailable Livan Sharif MD Unavailable Catherine Cm MD Unavailable + Valery Veronica-C Unavailable Brea Quinn MANAGER CLIENT SERVICE SALES ARCHITECT Unavailable Brea Quinn MANAGER CLIENT SERVICE SALES ARCHITECT Unavailable Jose Francisco Johnson MD Unavailable Sydnie Martinez RN Unavailable Unavailable Alfonso Renteria MD Unavailable [phone] Esha Grimm PA-C Primary Care Provider Cheng Todd PA-C Unavailable Radha Lomeli APRN SALES ARCHITECT Unavailable Jelena David OD Unavailable Pao Joseph RN Unavailable Unavailable Esha Grimm PA-C Unavailable [phone] Valery Veronica PA-C Unavailable Rey Tay MD Unavailable Rocky Zepeda DO Unavailable Philip Dumont MD Unavailable [phone] Meredith Carrera PA-C Unavailable Neil Kent MD Unavailable Juan Pablo Emmanuel MD Unavailable Audrey Waite PA-C Unavailable JeremíasValery damon PA-C Unavailable [phone] Herminia Hatch MD Unavailable Encounter Details Date Type Department Care Team (Late st Contact Info) Description 07/06/2023 MyC Medical Advice [facility] [address] [facility], [address] [place] [address] Alfonso Renteria MD [address] [facility] [address] [place] [address] Social History Tobacco Use Types [...] Score 0 06/20/2023 [facility] - Occupational [...] exercise at this level? 30 min 03/10/2023 [place] Depression Scale Answer Date Recorded [place] Depression Score 5 01/14/2021 Last EPDS Self [...] in an overnight long-term, or couch-surfing.) Yes 06/20/2023 Are you worried [...] PM CDT Legal Sex Female 4:13 AM DISPATCHER MAINTENANCE Gender Identity Female 03/02/2021 5:45 PM CDT Sexual Orientation Straight 02/28/2020 12 :51 AM CDT documented as of this encounter Miscellaneous Notes * Telephone Encounter - Genny Hyman PA-C - 07/07/2023 11:13 AM DISPATCHER MAINTENANCE No lesions/abnormal findings on MRI to account for possible seizure activity. Last office note indicated: If repeat MRI was normal would reduce levetiracetam to 250 mg per day for two weeks and then stop. Ok to proceed with this plan. Call if questions, concerns, or worsening of symptoms with discontinuation of the medication Genny Hyman PA-C ATCHER MAINTENANCE documented in this encounter Plan of Treatment Upcoming Encounters Date Type Department Care Team (Late st Contact Info) Description 10/23/2024 9:30 AM CDT Office Visit [facility] Neurology [facility] [address] [facility], [address] [place] [address] [place] [address] [place], [place] [address] Johnny Penn MD [address] [facility] [place] 307735 documented as of this encounter Visit Diagnoses Not on filedocumented in this encounter Additional Health Concerns Infection Onset Date Last Indicated Resolved Time Rule Out COVID-19 12/26/2023 12/26/2023 12/26/2023 9:50 AM CDT Rule Out COVID-19 04/09/2024 04/09/2024 04/10/2024 6:48 PM CDT Assessment Noted Time PHQ-9 Depression Total Score: 4 06/20/20 23 8:40 AM DISPATCHER MAINTENANCE documented as of this encounter Care Teams Call Taker Relationship Specialty Start Date End Date Esha Grimm PA-C [address] [place] [address] PCP - General Family Medicine 05/04/23 Diana Desir, [facility] 30[address] [place] [address] Pharmacist Pharmacist 04/17/21 Rain Galaviz PA-C [address] [place] [address] [address] [place] [address] Physician Video Presentation Operator Dermatology 04/28/21 Tavia Wyatt MD [address] [place] [address] [address] [place] [address] Dermatology 07/14/21 Erica Farrell APRN SALES ARCHITECT [address] [place], [place] 55[address] Nurse Practitioner Cardiovascular Disease 09/09/21 Rich Barrett MD 516 [facility] 9A [place], [place] 345035 Physician Ophthalmology 01/21/22 Neil Kent MD 500 [place], [place] 342745 Dermatology 02/24/22 [facility] 3033 [place], [place] 952186 Assigned MTM Pharmacist 04/07/22 Livan Sharif MD [address] [facility]00 [place], [place] 283575 Cardiovascular Disease 05/14/22 Catherine Cm MD [address] 1417[address] Cardiovascular Disease 07/21/22 Valery Veronica, PA-C [address] [place] [address] 202865 Physician Video Presentation Operator Dermatology 07/21/22 Brea Quinn APRN SALES ARCHITECT 500 [place], [place] 131775 Nurse Practitioner Dermatology 09/21/22 Brea Quinn APRN SALES ARCHITECT 6401 [facility] [place] [address] Assigned Surgical Provider 10/09/22 05/01/24 [place] [address] [place] [address] Assigned Musculoskeletal Provider 10/09/22 05/01/24 Sydnie Martinez RN Personal Advocate & Liaison (PAL) Family Medicine 03/28/23 07/31/23 Alfonso Renteria MD 5775 [facility] 200 [place] [address] Assigned Neuroscience Provider 04/02/23 Cheng Todd PA-C [address] [place] [address] 72706127 Assigned PCP 04/30/23 07/15/23 Radha Lomeli APRN SALES ARCHITECT 6405 [facility] [address] [place] [address] Assigned Heart and Vascular Provider 05/28/23 Jelena David OD [address] [facility] [address] Ophthalmology 06/15/23 Pao Joseph, VJ Personal Advocate & Liaison (PAL) Nurse 08/01/23 11/07/23 Esha Grimm PAUcheC [address] [place] [phone] Assigned PCP 07/16/23 Valery Veronica PA-C 9 [place] [address] Physician Video Presentation Operator Dermatology 09/19/23 Rey Tay MD 9 [place], [place] 176875 MD Gastroenterology 09/20/23 Rocky Zepeda DO [address] [place] [address] 881675 Physician Gastroenterology 09/20/23 Philip Dumont MD [address] [place] [address] 502585 Physician Ophthalmology 09/22/23 Meredith Carrera PA-C 9 [place], [place] 661475 Assigned Gastroenterology Provider 11/01/23 Neil Kent MD [address] [address] Dermatology 11/02/23 [place] [address] [facility] [place] [address] Neurological Surgery 12/26/23 Audrey Waite PA-C 500 [place] [address] Physician Video Presentation Operator Dermatology 02/28/24 Valery Veronica PA-C [address] [place] [address] Physician Video Presentation Operator Dermatology 04/10/24 Herminia Hatch MD [address] [place] [address] Assigned Rheumatology Provider 07/02/24 documented as of this encounter
--- OUTSIDE RECORDS SUMMARY | 2024-08-28 19:12 | XMS_ITS | Encounter Summary ---
Author Organization [place] Address [address] [place] [address] Care Team Providers Care Lamp Developer Name Role Phone Diana Desir [facility] Unavailable [phone] Rain Galaviz PA-C Unavailable Tavia Wyatt MD Unavailable Erica Farrell APRN PNEUMATIC SYSTEMS OPERATOR Unavailable Rich Barrett MD Unavailable [phone] Neil Kent MD Unavailable Diana Desir [facility] Unavailable Livan Sharif MD Unavailable Catherine Cm MD Unavailable + Valery Veronica-C Unavailable Brea Quinn BRAID PATTERN SETTER PNEUMATIC SYSTEMS OPERATOR Unavailable Brea Quinn BRAID PATTERN SETTER PNEUMATIC SYSTEMS OPERATOR Unavailable Jose Francisco Johnson MD Unavailable Sydnie Martinez RN Unavailable Unavailable Alfonso Renteria MD Unavailable [phone] Esha Grimm PA-C Primary Care Provider Radha Lomeli APRN PNEUMATIC SYSTEMS OPERATOR Unavailable Jelena David OD Unavailable Pao Joseph RN Unavailable Unavailable Esha Grimm PA-C Unavailable [phone] Valery Veronica PA-C Unavailable Rey Tay MD Unavailable Rocky Zepeda DO Unavailable Philip Dumont MD Unavailable Meredith Carrera PA-C Unavailable [phone] Neil Kent MD Unavailable Juan Pablo Emmanuel MD Unavailable Audrey Waite PA-C Unavailable [phone] Valery Veronica PA-C Unavailable [phone] Herminia Hatch MD Unavailable Encounter Details Date Type Department Care Team (Late st Contact Info) Description 07/29/2023 [facility] [address] [address] Pao Joseph, RN Social History [...] do you attend [facility] or quaker services? 1 to 4 [...] Answer Date Recorded PHQ-2 Score 0 06/20/2023 [facility] of Occupat ional Health - Occupational Stress [...] exercise at this level? 30 min 03/10/2023 [place] Depression Scale Answer Date Recorded [...] PM CDT Legal Sex Female 4:13 AM IMAGING ADMINISTRATOR Gender Identity Female 03/02/2021 5:45 PM CDT Sexual Orientation Straight 02/28/2020 12 :51 AM CDT documented as of this encounter Plan of Treatment Upcoming Encounters Date Type Department Care Team (Late st Contact Info) Description 10/23/2024 9:30 AM CDT Office Visit [facility] Neurology [address], [address] [place] [address] [place] [address] [address] [place] 150477 Johnny Penn MD [address] [place] [address] documented as of this encounter Visit Diagnoses Not on filedocumented in this encounter Additional Health Concerns Infection Onset Date Last Indicated Resolved Time Rule Out COVID-19 12/26/2023 12/26/2023 12/26/2023 9:50 AM CDT Rule Out COVID-19 04/09/2024 04/09/2024 04/10/2024 6:48 PM CDT Assessment Noted Time PHQ-9 Depression Total Score: 4 06/20/20 23 8:40 AM IMAGING ADMINISTRATOR documented as of this encounter Care Teams Lamp Developer Relationship Specialty Start Date End Date Esha Grimm PA-C [address] [place] [address] PCP - General Family Medicine 05/04/23 Diana Desir, [facility] [address] [place], [place] 7[address] Pharmacist Pharmacist 04/17/21 Rain Galaviz PA-C [address] [place] [address] [address] [place] [address] Physician Dough Molder Hand Dermatology 04/28/21 Tavia Wyatt MD [address] [place] [address] [address] [place] [address] [id number] Dermatology 07/14/21 Erica aFrrell APRN PNEUMATIC SYSTEMS OPERATOR [address] [facility] [address] [place], [place] 00[address] Nurse Practitioner Cardiovascular Disease 09/09/21 Rich Barrett MD [address] 695665 Physician Ophthalmology 01/21/22 Neil Kent MD 500 [place], [place] 608685 Dermatology 02/24/22 Diana Desir, [facility] [address] [place], [place] 191126 Assigned MTM Pharmacist 04/07/22 Livan Sharif MD [address] [facility] [address], [facility] [address] [place], [place] [address] Cardiovascular Disease 05/14/22 Catherine Cm MD [address] [facility] [address] [place], [place] 8978[address] Cardiovascular Disease 07/21/22 Valery Veronica, PA-C 909 [place], [place] 203375 Physician Dough Molder Hand Dermatology 07/21/22 Brea Quinn APRN PNEUMATIC SYSTEMS OPERATOR 500 [place], [place] 176545 Nurse Practitioner Dermatology 09/21/22 Brea Quinn APRN PNEUMATIC SYSTEMS OPERATOR [address] [place] [address] 530302 Assigned Surgical Provider 10/09/22 05/01/24 [place] [address] [facility] 300 [place], [place] 315337 Assigned Musculoskeletal Provider 10/09/22 05/01/24 Sydnie Martinez RN Personal Advocate & Liaison (PAL) Family Medicine 03/28/23 07/31/23 Alfonso Renteria MD 5775 [facility] 200 [place] [address] Assigned Neuroscience Provider 04/02/23 Radha Lomeli APRN PNEUMATIC SYSTEMS OPERATOR [address] [place] [address] Assigned Heart and Vascular Provider 05/28/23 Jelena David OD [address] [facility] [place] [address] MD Ophthalmology 06/15/23 Pao Joseph, VJ Personal Advocate & Liaison (PAL) Nurse 08/01/23 11/07/23 Esha Grimm PA-C [address] [place] [phone] Assigned PCP 07/16/23 Valery Veronica PA-C [address] [place] [address] 756555 Physician Dough Molder Hand Dermatology 09/19/23 Rey Tay MD [address] [place] [address] 044375 Gastroenterology 09/20/23 Rocky Zepeda DO [address] [place] [address] Physician Gastroenterology 09/20/23 Philip Dumont MD [address] [place] [address] 285995 Physician Ophthalmology 09/22/23 Meredith Carrera PA-C [address] [place] [address] Assigned Gastroenterology Provider 11/01/23 Neil Kent MD [address] [address] Dermatology 11/02/23 [place] [address] [address] Neurological Surgery 12/26/23 Audrey Waite PA-C 500 [place] [address] Physician Dough Molder Hand Dermatology 02/28/24 Valery Veronica PA-C 510699 [address], [place] [address] Physician Dough Molder Hand Dermatology 04/10/24 Herminia Hatch MD [facility]5 [place], [place] 53856[address] Assigned Rheumatology Provider 07/02/24 documented as of this encounter
--- OUTSIDE RECORDS SUMMARY | 2024-08-28 19:12 | XMS_ITS | Encounter Summary ---
Author Organization [place] Address [address] [place] [address] Care Team Providers Care V Belt Coverer Name Role Phone Diana Desir [facility] Unavailable [phone] Rain Galaviz PA-C Unavailable Tavia Wyatt MD Unavailable Erica Farrell APRN BROWNFIELD REDEVELOPMENT SITE MANAGER Unavailable Rich Barrett MD Unavailable [phone] Neil Kent MD Unavailable Diana Desir [facility] Unavailable [phone] Livan Sharif MD Unavailable Catherine Cm MD Unavailable + Valery Veronica PA-C Unavailable Brea Quinn HANDWRITING EXPERT BROWNFIELD REDEVELOPMENT SITE MANAGER Unavailable Brea Quinn HANDWRITING EXPERT BROWNFIELD REDEVELOPMENT SITE MANAGER Unavailable Jose Francisco Johnson MD Unavailable Alfonso Renteria MD Unavailable [phone] Esha Grimm PA-C Primary Care Provider [phone] Radha Lomeli APRN BROWNFIELD REDEVELOPMENT SITE MANAGER Unavailable Jelena David OD Unavailable Pao Joseph RN Unavailable Unavailable Esha Grimm PA-C Unavailable [phone] Valery Veronica PA-C Unavailable Rey Tay MD Unavailable Rocky Zepeda DO Unavailable Philip Dumont MD Unavailable [phone] Meredith Carrera PA-C Unavailable [phone] Neil Kent MD Unavailable Juan Pablo Emmanuel MD Unavailable Audrey Waite PA-C Unavailable [phone] Valery Veronica PA-C Unavailable [phone] Herminia Hatch MD Unavailable Encounter Details Date Type Department Care Team (Late st Contact Info) Description 08/10/2023 [facility] [address] [address] Esha Grimm PA-C [id number] [place] [address] Social History Tobacco Use Types Packs/Day [...] often do you attend [facility] or orthodox services? 1 to 4 times [...] Score 0 06/20/2023 [facility] of Occupat ional Health [...] exercise at this level? 30 min 03/10/2023 [place] Depression Scale Answer Date Recorded [place] Depression Score 5 01/14/2021 Last EPDS [...] PM CDT Legal Sex Female 4:13 AM ORCHID WORKER Gender Identity Female 03/02/2021 5:45 PM CDT Sexual Orientation Straight 02/28/2020 12 :51 AM CDT documented as of this encounter Miscellaneous Notes * Telephone Encounter - Asiya Reddy RN - 08/10/2023 11:40 AM ORCHID WORKER Esha- see [employer] message below. Patient did call to see if E-Visit would be addressed today. No immediate concern at this time. Advised UC if needed sooner. Asiya Reddy RN ID WORKER documented in this encounter Plan of Treatment Upcoming Encounters Date Type Department Care Team (Late st Contact Info) Description 10/23/2024 9:30 AM CDT Office Visit [facility] Neurology [facility] - [address], [address] [place] [address] [place] [address] [place], [place] [phone] Johnny Penn MD [address] [place] 756315 documented as of this encounter Visit Diagnoses Not on filedocumented in this encounter Additional Health Concerns Infection Onset Date Last Indicated Resolved Time Rule Out COVID-19 12/26/2023 12/26/2023 12/26/2023 9:50 AM CDT Rule Out COVID-19 04/09/2024 04/09/2024 04/10/2024 6:48 PM CDT Assessment Noted Time PHQ-9 Depression Total Score: 4 06/20/20 23 8:40 AM ORCHID WORKER documented as of this encounter Care Teams V Belt Coverer Relationship Specialty Start Date End Date Esha Grimm PA-C [address] [place] [address] PCP - General Family Medicine 05/04/23 Diana Desir, [facility] 3033 [place] [address] Pharmacist Pharmacist 04/17/21 Rain Galaviz PA-C [address] [place] [address] [address] [facility] [place] [address] Physician Painter Dermatology 04/28/21 Tavia Wyatt MD [address] [place] [address] [address] [facility] [place] [id number] Dermatology 07/14/21 Eirca Farrell APRN BROWNFIELD REDEVELOPMENT SITE MANAGER [address] [place], [place] [address]045 Nurse Practitioner Cardiovascular Disease 09/09/21 Rich Barrett MD 516 [facility] 9A [place], [place] 5928[address] Physician Ophthalmology 01/21/22 Neil Kent MD 500 [place], [place] [address]75 Dermatology 02/24/22 Diana Desir, [facility] 30[address] [place], [place] 290146 Assigned [facility] Pharmacist 04/07/22 Livan Sharif MD [address], [facility] [place] [address] Cardiovascular Disease 05/14/22 Catherine Cm MD 6405 [facility] [address] 728135 Cardiovascular Disease 07/21/22 Valery Veronica, PA-C [address] [place] [address] 283725 Physician Painter Dermatology 07/21/22 Brea Quinn APRN BROWNFIELD REDEVELOPMENT SITE MANAGER 500 [place], [place] 633875 Nurse Practitioner Dermatology 09/21/22 Brea Quinn APRN BROWNFIELD REDEVELOPMENT SITE MANAGER 6401 [facility] [place] 752482 Assigned Surgical Provider 10/09/22 05/01/24 [place] [address] [address] [facility] 300 [place] [address] Assigned Musculoskeletal Provider 10/09/22 05/01/24 Alfonso Renteria MD [address] [facility] 200 [place] [address] Assigned Neuroscience Provider 04/02/23 Radha Lomeli APRN BROWNFIELD REDEVELOPMENT SITE MANAGER [address] [facility] [address] [place] [address] Assigned Heart and Vascular Provider 05/28/23 Jelena David OD [address] [facility] [place] [address] Ophthalmology 06/15/23 Pao Joseph, VJ Personal Advocate & Liaison (PAL) Nurse 08/01/23 11/07/23 Esha Grimm PA-C [address] [place] [phone] Assigned PCP 07/16/23 Valery Veronica PA-C [address] [place] [address] Physician Painter Dermatology 09/19/23 Rey Tay MD [address] [place] [address] Gastroenterology 09/20/23 Rocky Zepeda DO [address] [place] [address] Physician Gastroenterology 09/20/23 Philip Dumont MD 516 [place] [address] Physician Ophthalmology 09/22/23 Meredith Carrera PA-C [address] [place] [address] Assigned Gastroenterology Provider 11/01/23 Neil Kent MD [address] [address] MD Dermatology 11/02/23 [place] [address] [address] Neurological Surgery 12/26/23 Audrey Waite PA-C 500 [place] [address] Physician Painter Dermatology 02/28/24 Valery Veronica PA-C 511650 [place] [address] Physician Painter Dermatology 04/10/24 Herminia Hatch MD 1875 [place], [place] 90905[address] Assigned Rheumatology Provider 07/02/24 documented as of this encounter
--- OUTSIDE RECORDS SUMMARY | 2024-08-28 19:12 | XMS_ITS | Encounter Summary ---
Author Organization [place] Address [address] [place] [address] Care Team Providers Care Water Pump Operator Name Role Phone Diana Desir [facility] Unavailable [phone] Rain Galaviz PA-C Unavailable Tavia Wyatt MD Unavailable Erica Farerll APRN BITUMINOUS DISTRIBUTOR OPERATOR Unavailable Rich Barrett MD Unavailable [phone] Neil Kent MD Unavailable Diana Desir [facility] Unavailable Livan Sharif MD Unavailable Catherine Cm MD Unavailable + Valery Veronica-C Unavailable Brea Quinn WOOL BUYER BITUMINOUS DISTRIBUTOR OPERATOR Unavailable Brea Quinn WOOL BUYER BITUMINOUS DISTRIBUTOR OPERATOR Unavailable Jose Francisco Johnson MD Unavailable Sydnie Martinez RN Unavailable Unavailable Alfonso Renteria MD Unavailable [phone] Esha Grimm PA-C Primary Care Provider Cheng Todd PA-C Unavailable Radha Lomeli APRN BITUMINOUS DISTRIBUTOR OPERATOR Unavailable Jelena David OD Unavailable Pao Joseph RN Unavailable Unavailable Esha Grimm PA-C Unavailable [phone] Valery Veronica PA-C Unavailable [phone] Rey Tay MD Unavailable Rocky Zepeda DO Unavailable Philip Dumont MD Unavailable [phone] Meredith Carrera PA-C Unavailable Neil Kent MD Unavailable Juan Pablo Emmanuel MD Unavailable Audrey Waite PA-C Unavailable JeremíasValery damon PA-C Unavailable [phone] Herminia Hatch MD Unavailable Encounter Details Date Type Department Care Team (Late st Contact Info) Description 06/17/2023 [facility] [address] [facility], [address] [place] [address] Alfonso Renteria MD 5775 [facility] [address] 200 [place] [address] Social History Tobacco Use Types [...] do you attend chur or lutheran services? 1 to 4 times [...] Answer Date Recorded PHQ-2 Score 0 06/20/2023 [facility] - Occupational Stress [...] exercise at this level? 30 min 03/10/2023 [place] Depression Scale Answer Date Recorded [place] Depression Score 5 01/14/2021 Last EPDS Self [...] PM CDT Legal Sex Female 4:13 AM PEARL CUTTER Gender Identity Female 03/02/2021 5:45 PM CDT Sexual Orientation Straight 02/28/2020 12 :51 AM CDT documented as of this encounter Miscellaneous Notes * Telephone Encounter - Lulu Xie - 06/28/2023 12:08 PM CST Patient calling to follow up on the below [employer] message. Patient continues to have a lot of dizzyness and neck pain. L CUTTER documented in this encounter Plan of Treatment Upcoming Encounters Date Type Department Care Team (Late st Contact Info) Description 10/23/2024 9:30 AM CDT Office Visit [facility] Neurology [facility] - [address], [address] [place] [address] [place] [address] [place], [place] 4314[address] Johnny Penn MD [address] [place] [address] documented as of this encounter Visit Diagnoses Not on filedocumented in this encounter Additional Health Concerns Infection Onset Date Last Indicated Resolved Time Rule Out COVID-19 12/26/2023 12/26/2023 12/26/2023 9:50 AM CDT Rule Out COVID-19 04/09/2024 04/09/2024 04/10/2024 6:48 PM CDT Assessment Noted Time PHQ-9 Depression Total Score: 6 05/16/20 9:29 AM PEARL CUTTER documented as of this encounter Care Teams Water Pump Operator Relationship Specialty Start Date End Date Esha Grimm PA-C [address] [place] [address] PCP - General Family Medicine 05/04/23 Diana Desir, [facility] 3033 [place] [address] Pharmacist Pharmacist 04/17/21 Rain Galaviz PA-C [address] [place] [address] [address] [place] [address] Physician Supervisor Cellars Dermatology 04/28/21 Tavia Wyatt MD [address] [place] [address] [address] [place] [address] Dermatology 07/14/21 Erica Farrell APRN BITUMINOUS DISTRIBUTOR OPERATOR [address] [place], [place] 79[address] Nurse Practitioner Cardiovascular Disease 09/09/21 Rich Barrett MD 516 [facility] [address]A [place], [place] 5[address] Physician Ophthalmology 01/21/22 Neil Kent MD 500 [place], [place] 249855 Dermatology 02/24/22 Diana Desir, [facility] 30[address] [place], [place] 392566 Assigned [facility] Pharmacist 04/07/22 Livan Sharif MD [address], [address] [place] [address] Cardiovascular Disease 05/14/22 Catherine Cm MD [address] [place], [place] [address] Cardiovascular Disease 07/21/22 Valery Veronica, PAUcheC [address] [place] [address] 052705 Physician Supervisor Cellars Dermatology 07/21/22 Brea Quinn APRN BITUMINOUS DISTRIBUTOR OPERATOR 500 [place], [place] 9[address]285 Nurse Practitioner Dermatology 09/21/22 Brea Quinn APRN BITUMINOUS DISTRIBUTOR OPERATOR [address] [place] [address] [place] [address] Assigned Surgical Provider 10/09/22 05/01/24 [place] [address] [place] [address] Assigned Musculoskeletal Provider 10/09/22 05/01/24 Sydnie Martinez RN Personal Advocate & Liaison (PAL) Family Medicine 03/28/23 07/31/23 Alfonso Renteria MD [address] [facility] 200 [place], [place] [address] Assigned Neuroscience Provider 04/02/23 Cheng Todd PA-C [address] [place] [address] [id number] Assigned PCP 04/30/23 07/15/23 Radha Lomeli, ARLENE BITUMINOUS DISTRIBUTOR OPERATOR 6405 [facility] [place], [place] 393585 Assigned Heart and Vascular Provider 05/28/23 Jelena David OD [address] [place] [address] Ophthalmology 06/15/23 Pao Joseph, VJ Personal Advocate & Liaison (PAL) Nurse 08/01/23 11/07/23 Esha Grimm PA-C [address] [place] [address] Assigned PCP 07/16/23 Valery Veronica PA-C 909 [place] [address] Physician Supervisor Cellars Dermatology 09/19/23 Rey Tay MD 9 [place] [address] MD Gastroenterology 09/20/23 Rocky Zepeda DO 500 [place] [address] Physician Gastroenterology 09/20/23 Philip Dumont MD 516 [place], [place] 377335 Physician Ophthalmology 09/22/23 Meredith Carrera PA-C 9 [place] [address] Assigned Gastroenterology Provider 11/01/23 Neil Kent MD [address] [place] [address]370 Dermatology 11/02/23 [place] [address] [address] [facility] [place] [address] Neurological Surgery 12/26/23 Audrey Waite PA-C 500 [place] [address] Physician Supervisor Cellars Dermatology 02/28/24 Valery Veronica PA-C 859032 [address] [place] [address] Physician Supervisor Cellars Dermatology 04/10/24 Herminia Hatch MD [address] [place] [address] Assigned Rheumatology Provider 07/02/24 documented as of this encounter
[2024-08-28 19:31] LABS: Hemoglobin* 11.7 gm/dL (12.0-16.0)
[2024-08-28 19:57] LABS: Chloride* 103 mmol/L (96-114); Sodium* 135 mmol/L (135-149)
[2024-08-28 20:00] LABS: Creatinine* 0.6 mg/dL (0.5-1.5); Est. Creatinine Clearance* 135.35; Estimated Glomerular Filt Rate 128 ml/min
[2024-08-28 20:01] LABS: Anion Gap 9 mEq/L (7-15); Blood Urea Nitrogen* 15 mg/dL (5-24); Calcium* 9.2 mg/dL (8.4-10.6); Carbon Dioxide* 23 mmol/L (20-32); Glucose* 82 mg/dL (60-115); Magnesium* 1.8 mg/dL (1.5-2.6)
[2024-08-28 20:09] LABS: C Reactive Protein* < 0.5 mg/dL (0.5-1.0)
== END 2024-08-28 19:37 | disposition home or self-care (01) ==
PROVIDERS: Emergency Provider Family Medicine
DX: I49.3 Ventricular premature depolarization (principal); Z71.1 Person with feared health complaint in whom no diagnosis is made
CPT/HCPCS: 36415; 80048; 83735; 84484; 85018; 86140; 99283

== ENCOUNTER 2024-10-18 16:13 | Emergency (ER) | payer MEDICAID, SELFPAY ==
[2024-10-18] VITALS (7 sets, daily range): BP systolic 114; BP diastolic 63; PULSE 68–73; RESP 12–27; TEMP 36.8; O2SAT 96–99; BMI 32.3
--- NOTE | 2024-10-18 16:42 | ED_ITS ---
HPI - Chest Pain General Chief Complaint: Chest Pain Stated Complaint: L chest pain Time Seen by Provider: 10/18/24 16:14 History of Present Illness HPI narrative: This 24-year-old female comes in reporting pain in her left shoulder and a bit into her left chest and somewhat into her left arm. She states that she has been having this pain on occasion but comes in today as it began earlier today. 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 She states that she does exercise and has no symptoms when doing so. She does not report any nausea, vomiting, lightheadedness, shortness of breath, or diaphoresis. She states that sometimes she can reproduce some discomfort and reports some posterior left-sided neck discomfort also at times. She does have a history of supraventricular tachycardia and has had an ablation. She does not have any significant cardiac risk factors. Related Data Home Medications ?Medication ?Instructions ?Recorded ?Confirmed omeprazole 40 mg capsule,delayed 40 mg PO DAILY 04/28/22 10/18/24 release lorazepam 0.5 mg tablet 0.5 mg PO DAILY PRN anxiety 03/18/23 10/18/24 metoprolol succinate 25 mg 12.5 mg PO DAILY 10/15/23 10/18/24 tablet,extended release 24 hr paroxetine HCl 40 mg tablet 40 mg PO QAM 10/15/23 10/18/24 ketoconazole 2 % shampoo 1 applic topical 05/02/24 07/13/24 tretinoin 0.05 % topical cream 1 applic topical QPM 05/02/24 10/18/24 (Retin-A) Allergies Allergy/AdvReac Type Severity Reaction Status Date / Time vancomycin Allergy Verified 10/18/24 16:21 Review of Systems Status of ROS Reports: 10 or more systems reviewed and unremarkable except as noted in History and below Narrative Constitutional: No fevers, no weight gain or loss. Eyes: No discharge. No vision changes. HENT: No congestion, no sore throat, no ear pain. Cardiovascular: No palpitations. Respiratory: No shortness of breath, no wheezes, no cough. Gastrointestinal: No abdominal pain, no vomiting, no diarrhea. Genitourinary: No dysuria, no hematuria. Musculoskeletal: Normal range of motion. Skin: No rashes, no pruritis. Neurological: No dizziness, weakness, sensory change, speech change. Endo/Heme/Allergies: No bruising or bleeding. No polydipsia. Pysch: no suicidality, no anxiety, no insomnia. All other systems reviewed and are negative. [facility] Medical History SVT (supraventricular tachycardia) ?I47.10 - Supraventricular tachycardia, unspecified (ICD-10) Social History Smoking Status: Former smoker What tobacco products do you use: cigarettes Smoking quit date/years: <= 15 years ago Do you use any of these nicotine containing products: None and Vaping Products Second hand tobacco smoke exposure: No How often do you have a drink containing alcohol: monthly or less How often do you have six or more drinks on one occasion: Never AUDIT-C Alcohol total score: 1 Non-prescribed substance use: denies use service: No Exam Narrative Exam Narrative: Constitutional: Well-developed, well-nourished, no acute distress. HEENT: Normocephalic, atraumatic. Neck: Normal range of motion. Nontender. Supple. Heart: Regular. No murmurs. Normal rate. Intact distal pulses. Lungs: Clear to auscultation. No wheezes, rhonchi, or rales. Abdomen: Normal bowel sounds. Nontender. No rebound tenderness. Genitalia: Deferred. Back: No midline tenderness. Normal range of motion. Extremities: Normal range of motion. No injury. Skin: Intact. Warm. No erythema or pallor. Scattered psoriasis lesions. Neurologic: No altered sensation. No weakness. Alert and oriented. Psychiatric: No suicidality. No anxiety or depression. No insomnia. Nursing notes and vitals signs are reviewed. Const Vital Signs, click to edit/add: Vital Signs - 24 hr 10/18/24 16:15 10/18/24 16:40 10/18/24 16:50 Temperature 98.3 F Pulse Rate 71 Pulse Rate [Pulse Oximeter] 73 Respiratory Rate 16 21 12 Blood Pressure [Right Upper Arm] 114/63 Pulse Oximetry 99 96 Oxygen Delivery Method Room Air 10/18/24 17:00 10/18/24 17:05 10/18/24 17:15 Temperature Pulse Rate 68 Pulse Rate [Pulse Oximeter] Respiratory Rate 13 12 27 H Blood Pressure [Right Upper Arm] Pulse Oximetry 99 Oxygen Delivery Method 10/18/24 17:30 Temperature Pulse Rate Pulse Rate [Pulse Oximeter] Respiratory Rate 19 Blood Pressure [Right Upper Arm] Pulse Oximetry Oxygen Delivery Method Course Vital Signs Vital signs: Initial Vital Signs Temperature 98.3 F 10/18/24 16:15 Temperature Source Temporal Artery Scan 10/18/24 16:15 Pulse Rate 73 10/18/24 16:15 Respiratory Rate 16 10/18/24 16:15 Blood Pressure 114/63 10/18/24 16:15 Blood Pressure Mean 80 10/18/24 16:15 Blood Pressure Position Sitting 10/18/24 16:15 Pulse Oximetry 99 10/18/24 16:15 Oxygen Delivery Method Room Air 10/18/24 16:15 Vital Signs Temperature 98.3 F 10/18/24 16:15 Pulse Rate 73 10/18/24 16:15 Respiratory Rate 16 10/18/24 16:15 Blood Pressure 114/63 10/18/24 16:15 Pulse Oximetry 99 10/18/24 16:15 Oxygen Delivery Method Room Air 10/18/24 16:15 Temperature 98.3 F 10/18/24 16:15 Pulse Rate 68 10/18/24 17:15 Respiratory Rate 19 10/18/24 17:30 Blood Pressure 114/63 10/18/24 16:15 Pulse Oximetry 99 10/18/24 17:15 Oxygen Delivery Method Room Air 10/18/24 16:15 MDM - Chest Pain MDM Narrative Medical decision making narrative: This patient comes in with concern about some pain in her left shoulder region that seems to emanate a bit into her left arm and left chest. EKG and lab results are all returning with normal findings. I also did use bedside ultrasound to look at heart lungs with again normal results. This was reassuring to the patient. Her symptoms are somewhat reproducible and are much more likely to be musculoskeletal in nature. She is okay to be discharged home. Lab Data Labs: Lab Results 10/18/24 Range/Units 17:00 WBC 6.29 (4.50-11.00) K/uL RBC 4.54 (4.00-5.20) m/uL Hgb 11.4 L (12.0-16.0) gm/dL Hct 36.4 (33.0-51.0) % MCV 80 (80-100) fL MCH 25 L (26-34) pg MCHC 31 L (32-36) gm/dL RDW Coeff of Naina 12.9 (11.5-15.5) % Plt Count 264 (140-440) K/uL Neut % (Auto) 58.2 (42.0-72.0) % Lymph % (Auto) 30.2 (20-44) % Butts % (Auto) 5.6 (0.0-11.0) % Eos % (Auto) 5.7 (0.0-7.0) % Baso % (Auto) 0.3 (0.0-3.0) % Neut # (Auto) 3.66 (1.7-7.0) K/uL Lymph # (Auto) 1.90 (0.90-2.90) K/uL Butts # (Auto) 0.40 (0.00-0.90) K/UL Eos # (Auto) 0.36 (0.00-0.50) K/uL Baso # (Auto) 0.02 (0.00-0.30) K/uL Abs Immat Gran (auto) 0.00 (0.00-0.30) K/uL Imm/Tot Granulo (auto) 0.0 % ESR 6 (2-20) mm/hr Sodium 137 (135-149) mmol/L Potassium 3.8 (3.6-5.1) mmol/L Chloride 103 (96-114) mmol/L Carbon Dioxide 25 (20-32) mmol/L Anion Gap 9 (7-15) mEq/L BUN 15 (5-24) mg/dL Creatinine 0.7 (0.5-1.5) mg/dL Estimated Creat Clear 116.01 Estimated GFR 124 ml/min Glucose 81 (60-115) mg/dL Calcium 9.0 (8.4-10.6) mg/dL POC Troponin I 0.00 L (0.01-0.04) ng/ml ECG Data Attestation: I personally reviewed and interpreted this ECG as follows: Interpretation: Normal sinus rhythm. Rate is 72 beats per minute. There are no ST or T-wave abnormalities. Discharge Plan Discharge Clinical Impression: Atypical chest pain Patient Disposition: Home, Self-Care Condition: Stable Additional Instructions: Continue current plans. Use [id number] medicines as needed and directed. Follow up with MD return if worsening. Prescriptions: No Action tretinoin [Retin-A] 0.05 % cream 1 applic topical QPM ketoconazole 2 % shampoo 1 applic topical lorazepam 0.5 mg tablet 0.5 mg PO DAILY PRN (Reason: anxiety) omeprazole 40 mg capsule,delayed release(DR/EC) 40 mg PO DAILY Patient Comments: TAKE ONE CAPSULE BY MOUTH EVERY DAY . metoprolol succinate 25 mg tablet extended release 24 hr 12.5 mg PO DAILY paroxetine HCl 40 mg tablet 40 mg PO QAM Follow Up/Referrals: Provider,Not a Local [Primary Care Provider] - Stand Alone Forms: [facility] Info Instructions Procedures Ultrasound Cardiac exam #1: Anatomical areas examined: parasternal long and parasternal short Indications: chest pain Exam type: limited transthoracic echocardiogram Impression: negative exam
[2024-10-18 17:09] LABS: Basophils Absolute Auto 0.02 K/uL (0.00-0.30); Basophils Percent Auto 0.3 % (0.0-3.0); Eosinophils Absolute Auto 0.36 K/uL (0.00-0.50); Eosinophils Percent Auto 5.7 % (0.0-7.0); Hematocrit 36.4 % (33.0-51.0); Hemoglobin* 11.4 gm/dL (12.0-16.0); Lymphocytes Percent Auto 30.2 % (20-44); Mean Corpuscular HGB Conc 31 gm/dL (32-36); Mean Corpuscular Hemoglobin 25 pg (26-34); Mean Corpuscular Volume 80 fL (80-100); Monocytes Percent Auto 5.6 % (0.0-11.0); Neutrophils Absolute Auto 3.66 K/uL (1.7-7.0); Neutrophils Percent Auto 58.2 % (42.0-72.0); Platelet Count* 264 K/uL (140-440); RDW Coefficient of Variation % 12.9 % (11.5-15.5); Red Blood Count 4.54 m/uL (4.00-5.20); White Blood Count* 6.29 K/uL (4.50-11.00)
[2024-10-18 17:15] LABS: Slide Review Reflex No
[2024-10-18 17:25] LABS: Chloride* 103 mmol/L (96-114); Potassium* 3.8 mmol/L (3.6-5.1); Sodium* 137 mmol/L (135-149)
[2024-10-18 17:28] LABS: Anion Gap 9 mEq/L (7-15); Blood Urea Nitrogen* 15 mg/dL (5-24); Carbon Dioxide* 25 mmol/L (20-32); Creatinine* 0.7 mg/dL (0.5-1.5); Est. Creatinine Clearance* 116.01; Estimated Glomerular Filt Rate 124 ml/min
[2024-10-18 17:29] LABS: Glucose* 81 mg/dL (60-115)
[2024-10-18 18:05] LABS: Erythrocyte SedimentationRate* 6 mm/hr (2-20)
--- OUTSIDE RECORDS SUMMARY | 2024-10-18 19:19 | XMS_ITS | Encounter Summary ---
Author Organization [facility] Address [address] [place] [address] Care Team Providers Care Director Of Accreditation Name Role Phone Lita Oseguera Unavailable Unavailable Marija Edgar APRN DIRECTOR COUNSELING BUREAU Primary Care Provider + Chanelle Mccann CERTIFIED PEER SPECIALIST CNM Unavailab le Kyara De La Fuente RN Unavailable [phone] Marija Edgar APRN DIRECTOR COUNSELING BUREAU Unavailable [phone] Mynor Broussard MD Unavailable [phone] Keisha Dotson MD Unavailable Stacey Briones SALESPERSON TRAILERS AND MOTOR HOMES Unavailable Mary Mejia Unavailable Unavailable Galo Burrell MD Unavailable Unavailable Cristina Wood Unavailable Lesley Guillermo CHW Unavailable [phone] Meredith Bedoya Unavailable Unavailable Cristina Wood Unavailable Diana Desir [facility] Unavailable Rain Galaviz PA-C Unavailable Summer Lara MD Unavailable [phone] Summer Lara MD Unavailable [phone] Summer Lara MD Unavailable [phone] Tavia Wyatt MD Unavailable [phone] Johnny Murillo MD Unavailable [phone] Erica Farrell APRN DIRECTOR COUNSELING BUREAU Unavailable Teresita Bean [facility] Unavailable Tavia Wyatt MD Unavailable [phone] Diana [place] [facility] Unavailable [phone] Rich Barrett MD Unavailable Neil Kent MD Unavailable Roney Story DPM Unavailable Bud, Erica Guidry CERTIFIED PEER SPECIALIST DIRECTOR COUNSELING BUREAU Unavailable Diana Desir [facility] Unavailable [phone] Jelena David Radha Unavailable [phone] Galo Burrell MD Unavailable Unavailable Livan Sharif MD Unavailable + Livan Sharif MD Unavailable + Catherine Cm MD Unavailable + Valery Veronica PA-C Unavailable [phone] Catherine Cm MD Unavailable + Johnny Murillo MD Unavailable [phone] Quinn CERTIFIED PEER SPECIALIST DIRECTOR COUNSELING BUREAU Unavailable [phone] Brea Quinn CERTIFIED PEER SPECIALIST DIRECTOR COUNSELING BUREAU Unavailable [phone] Jose Francisco Johnson MD Unavailable Livan Sharif MD Unavailable Catherine Cm MD Unavailable + Sydnie Martinez RN Unavailable Unavailable Alfonso Renteria MD Unavailable [phone] Esha Grimm PA-C Primary Care Provider Cheng Todd PA-C Unavailable Radha Lomeli APRN DIRECTOR COUNSELING BUREAU Unavailable Jelena David OD Unavailable Pao Joseph RN Unavailable Unavailable Esha Grimm PA-C Unavailable [phone] Valery Veronica PA-C Unavailable Rey Tay MD Unavailable Rocky Zepeda DO Unavailable Philip Dumont MD Unavailable Meredith Carrera PA-C Unavailable Neil Kent MD Unavailable Juan Pablo Emmanuel MD Unavailable Audrey Waite PA-C Unavailable Valery Veronica PA-C Unavailable Herminia Hatch MD Unavailable Jelena David OD Unavailable Juan Pablo Emmanuel MD Unavailable Maru Man PA-C Unavailable Encounter Details Date Type Department Care Team (Late st Contact Info) Description 10/02/2020 [facility] Medical Advice [facility] Care Coordination [facility] [address] [place] [phone] Stacey Briones, [facility] Social History Tobacco Use Types Packs/Day [...] Answer Date Recorded PHQ-2 Score 3 09/29/2020 [facility] [...] PM CDT Legal Sex Female 4:13 AM CANDY SPREADER HELPER Gender Identity Female 03/02/2021 5:45 PM [...] Care Team (Late st Contact Info) Description 10/22/2024 11:00 AM CDT Office Visit [facility] [place] [address] [phone] Maru Man PA-C [address] [address] 10/23/2024 PRE VISIT [facility] Neurology [address], [facility] [address] [place] [phone] Johnny Penn MD [address] [place] [id number] Previsit 10/23/2024 9:30 AM CDT Office Visit [facility] Neurology [facility] - [address], [address] [place] [phone] [place] [address] [place] [address] [place] [address] Johnny Penn MD [address] [place] [id number] 10/24/2024 4:00 PM CDT Office Visit [facility] [place] [address] [place] [phone] Jelena David, [address] [facility] [place] [address] 10/31/2024 9:15 AM CDT Virtual Visit [facility] [address] [phone] Meredith Carrera PA-C [address] [place] [address] 12/20/2024 2:30 PM CDT Office Visit [facility] [address] [place] [address] Esha Grimm PA-C [address] [place] [address] documented as of this encounter Visit Diagnoses Not on filedocumented in this encounter Additional Health Concerns Infection Onset Date Last Indicated Resolved Time Rule Out COVID-19 11/05/2020 11/05/2020 11/06/2020 1:09 PM CDT Rule Out COVID-19 05/11/2021 05/11/2021 05/13/2021 10:18 AM CDT Rule Out COVID-19 07/13/2021 07/13/2021 07/14/2021 3:04 PM CANDY SPREADER HELPER Rule Out COVID-19 07/18/2021 07/18/2021 07/20/2021 1:56 PM CANDY SPREADER HELPER COVID-19 07/18/2021 07/18/2021 08/08/2021 11:3 9 PM CANDY SPREADER HELPER Rule Out COVID-19 12/18/2021 12/18/2021 12/19/2021 11:34 AM CDT Rule Out COVID-19 02/24/2022 02/24/2022 02/25/2022 1:08 PM CDT Rule Out COVID-19 04/26/2022 04/26/2022 04/26/2022 6:47 AM CDT Rule Out COVID-19 05/17/2022 05/17/2022 05/17/2022 10:20 PM CANDY SPREADER HELPER Rule Out COVID-19 06/09/2022 06/09/2022 06/09/2022 9:35 AM CANDY SPREADER HELPER COVID-19 06/09/2022 06/09/2022 06/30/2022 11:4 1 PM CANDY SPREADER HELPER Rule Out COVID-19 11/10/2022 11/10/2022 11/11/2022 12:17 PM CDT Rule Out COVID-19 03/07/2023 03/07/2023 03/07/2023 1:20 PM CDT Rule Out COVID-19 12/26/2023 12/26/2023 12/26/2023 9:50 AM CDT Rule Out COVID-19 04/09/2024 04/09/2024 04/10/2024 6:48 PM CDT Rule Out COVID-19 10/04/2024 10/04/2024 10/05/2024 9:42 AM CDT Assessment Noted Time PHQ-9 Depression Total Score: 6 09/30/19 3:25 PM CDT documented as of this encounter Care Teams Director Of Accreditation Relationship Specialty Start Date End Date Marija Edgar APRN DIRECTOR COUNSELING BUREAU PCP - General Nurse Practitioner 04/30/20 04/14/23 Esha Grimm PA-C [address] [place] [phone] PCP - General Family Medicine 05/04/23 Lita Oseguera Personal Advocate & Liaison (PAL) 02/28/20 03/27/23 Chanelle Mccann APRN CNM [id number] [address] Assigned OBGYN Provider 05/02/2005/09 Kyara De La Fuente, RN Specialty Conveyor Attendant Neurology 06/04/20 03/05/21 Marija Edgar APRN DIRECTOR COUNSELING BUREAU Assigned PCP 06/08/20 04/29/23 Mynor Broussard MD [address] [facility] [address] [place] [address] Assigned Surgical Provider 06/01/20 11/28/21 Keisha Dotson MD [address] [place] [address] Assigned Neuroscience Provider 06/04/20 04/01/23 Stacey Briones, [facility] Lead Conveyor Attendant Primary Care - CC 08/11/2012/30 Mary Mejia Financial Resource Worker 09/02/20 10/06/20 Galo Burrell MD Assigned Heart and Vascular Provider 10/05/20 04/02/22 Cristina Wood Financial Resource Worker 10/07/20 10/14/20 Lesley Guillermo, [facility] Community Health Worker 10/23/2012/30 Meredith Bedoya Financial Resource Worker 10/23/20 11/23/20 Cristina Wood Financial Resource Worker 02/09/21 02/09/21 Diana Desir, [facility] [address] [place] [address] Pharmacist Pharmacist 04/17/21 Rain Galaviz PA-C [address] [facility] [address] [place] [address] Physician Crystal Lapper Dermatology 04/28/21 Summer Lara MD [address] [place] [address] Assigned OBGYN Provider 05/10/2105/23 Summer Lara MD [address] [place] [address] Assigned OBGYN Provider 05/31/21 Summer Lara MD [address] [place] [address] Assigned OBGYN Provider 05/24/2105/30 Tavia Wyatt MD [address] [place] [address] Dermatology 07/14/21 Johnny Murillo MD [address] [place] [address] Assigned Musculoskeletal Provider 08/30/21 03/17/22 Erica Farrell APRN DIRECTOR COUNSELING BUREAU [address] [facility] [address] [place] [address] Nurse Practitioner Cardiovascular Disease 09/09/21 Teresita Bean [facility] [address] [place] [place], [place] [phone] Pharmacist Pharmacist 09/24/21 09/29/21 Tavia Wyatt MD [address] [place], [place] 447080 Assigned Surgical Provider 11/29/21 05/07/22 Diana Desir, [facility] [address] [place] [address] Assigned MTM Pharmacist 01/02/22 Rich Barrett MD [address] [place] [address] Physician Ophthalmology 01/21/22 Neil Kent MD [address] [place] [address] Dermatology 02/24/22 Roney Story DPM [address] [address] [facility] [address] [place], [place] [address] Assigned Musculoskeletal Provider 03/20/22 08/13/22 Erica Farrell APRN DIRECTOR COUNSELING BUREAU [address] [place] [address] Assigned Heart and Vascular Provider 04/03/22 04/16/22 Diana Desir, [facility] [address] [place] [address] Assigned MTM Pharmacist 04/07/22 Jelena David OD [address] [facility] [place] [address] Assigned Surgical Provider 05/08/22 10/08/22 Galo Burrell MD Assigned Heart and Vascular Provider 04/17/22 06/11/22 Livan Sharif MD [address] [place] [id number] Cardiovascular Disease 05/14/22 Livan Sharif MD [address] [place] [phone] Assigned Heart and Vascular Provider 06/12/22 07/23/22 Catherine Cm MD [address] [address] Cardiovascular Disease 07/21/22 Valery Veronica, PA-C [address] [place] [address] Physician Crystal Lapper Dermatology 07/21/22 Catherine Cm MD [address] [address] Assigned Heart and Vascular Provider 07/24/22 11/05/22 Johnny Murillo MD [address] [place] [address] Assigned Musculoskeletal Provider 08/14/22 10/08/22 Brea Quinn APRN DIRECTOR COUNSELING BUREAU [address] [place] [address] [phone] Nurse Practitioner Dermatology 09/21/22 Brea Quinn APRN DIRECTOR COUNSELING BUREAU [address] [place] [address] Assigned Surgical Provider 10/09/22 05/01/24 [place] [address] [address] Assigned Musculoskeletal Provider 10/09/22 05/01/24 Livan Sharif MD [address] [place] [address] Assigned Heart and Vascular Provider 11/06/22 11/12/22 Catherine Cm MD [address] [place] [address] Assigned Heart and Vascular Provider 11/13/22 05/27/23 Sydnie Martinez RN Personal Advocate & Liaison (PAL) Family Medicine 03/28/23 07/31/23 Alfonso Renteria MD [address] [facility] [address] [place] [address] Assigned Neuroscience Provider 04/02/23 09/29/24 Cheng Todd PA-C [address] [place] [address] Assigned PCP 04/30/23 07/15/23 Radha Lomeli APRN DIRECTOR COUNSELING BUREAU [address] [place] [address] Assigned Heart and Vascular Provider 05/28/23 Jelena David OD [facility] [facility] [place] [address] Ophthalmology 06/15/23 Pao Joseph, VJ Personal Advocate & Liaison (PAL) Nurse 08/01/23 11/07/23 Esha Grimm PA-C [address] [place] [phone] Assigned PCP 07/16/23 Valery Veronica PA-C [address] [place] [address] Physician Crystal Lapper Dermatology 09/19/23 Rey Tay MD [address] [place] [address] MD Gastroenterology 09/20/23 Rocky Zepeda DO [address] [place] [address] Physician Gastroenterology 09/20/23 Philip [place] MD [address] [place] [address] Physician Ophthalmology 09/22/23 Meredith Carrera PA-C [address] [place] [address] Assigned Gastroenterology Provider 11/01/23 Neil Kent MD [address] [address] Dermatology 11/02/23 [place] [address] 998537 Neurological Surgery 12/26/23 Audrey Waite PA-C [address] [place] [address] 924975 Physician Crystal Lapper Dermatology 02/28/24 Valery Veronica PA-C [address] [place] [address] Physician Crystal Lapper Dermatology 04/10/24 Herminia Hatch MD [address] [place], [place] [phone] Assigned Rheumatology Provider 07/02/24 Jelena David OD [address] [facility] [place] [address] Ophthalmology 08/30/24 [place] [address] [place] [address] Assigned Neuroscience Provider 09/30/24 Maru Man PA-C [address] [place] [address] Physician Crystal Lapper Dermatology 10/03/24 documented as of this encounter
--- OUTSIDE RECORDS SUMMARY | 2024-10-18 19:19 | XMS_ITS | Encounter Summary ---
Author Organization [facility] Address [address] [place] [address] Care Team Providers Care Animal Caretaker Supervisor Name Role Phone Lita Oseguera Unavailable Unavailable Marija Edgar APRN SUPPLY REQUIREMENTS OFFICER Primary Care Provider + Marija Edgar APRN SUPPLY REQUIREMENTS OFFICER Unavailable [phone] Keisha Dotson MD Unavailable Diana Desir [facility] Unavailable Rain Galaviz PA-C Unavailable [phone] Tavia Wyatt MD Unavailable Erica Farrell APRN SUPPLY REQUIREMENTS OFFICER Unavailable Tvaia Wyatt MD Unavailable [phone] Rich Barrett MD Unavailable [phone] Neil Kent MD Unavailable Roney Story DPM Unavailable [phone] Diana Desir [facility] Unavailable [phone] Jelena David OD Unavailable Galo Burrell MD Unavailable Unavailable Livan Sharif MD Unavailable Livan Sharif MD Unavailable IsCatherine hobbs MD Unavailable + Valery Veronica PA-C Unavailable Catherine Cm MD Unavailable + Johnny Murillo MD Unavailable Brea Quinn DIRECTOR OF PURCHASING SUPPLY REQUIREMENTS OFFICER Unavailable [phone] Brae Quinn DIRECTOR OF PURCHASING SUPPLY REQUIREMENTS OFFICER Unavailable [phone] Jose Francisco Johnson MD Unavailable Livan Sharif MD Unavailable Catherine Cm MD Unavailable + Sydnie Martinez RN Unavailable Unavailable Alfonso Renteria MD Unavailable [phone] Esha Grimm PA-C Primary Care Provider Cheng Todd PA-C Unavailable Radha Lomeli DIRECTOR OF PURCHASING SUPPLY REQUIREMENTS OFFICER Unavailable Jelena David OD Unavailable Pao Joseph RN Unavailable Unavailable Esha Grimm PA-C Unavailable [phone] Valery Veornica PA-C Unavailable Rey Tay MD Unavailable Rocky Zepeda DO Unavailable Philip Dumont MD Unavailable Meredith Carrera PA-C Unavailable [phone] Neil Kent MD Unavailable Juan Pablo Emmanuel MD Unavailable Audrey Waite PA-C Unavailable Valery Veronica PA-C Unavailable Herminia Hatch MD Unavailable Frankie Jelena Templetone OD Unavailable Juan Pablo Emmanuel MD Unavailable Maru Man PA-C Unavailable Encounter Details Date Type Department Care Team (Late st Contact Info) Description 05/01/2022 MyC Medical Advice [address] [phone] Diana Desir, [facility] [address] [place] [address] Social History Tobacco Use Types Packs/Day Years [...] How often do you attend hinduism or restoration serv ices? Never 09/22/2021 Do [...] Answer Date Recorded PHQ-2 Score 2 12/18/2021 [facility] ional [facility] - Occupational Stress Questionnaire Answer Date [...] in a chcf (including now)? No 09/22/2021 Nome Depression Scale Answer Date Recorded Nome Depression Score 5 01/14/2021 Last EPDS Self Harm Result Not on file 01/14 Education Answer Date Recorded What is the highest level of school you have completed or the highest degree you have received? 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 SOFTWARE DESIGN MANAGER Gender Identity Female 03/02/2021 5:45 PM [...] Description 10/22/2024 11:00 AM CDT Office Visit [address] [phone] Maru Man PA-C [address] [place] [address] 287160 10/23/[address] [facility] [address] [facility] - [address], [address] [place] [phone] Johnny Penn MD [address] [place] [address] Previsit 10/23/2024 9:30 AM CDT Office Visit [facility] Neurology [facility] - [address], [address] [place] [phone] [place] [address] [place] [id number] Johnny Penn MD [address] [facility] [place] [id number] 10/24/2024 4:00 PM CDT Office Visit [facility] [address] [place] [phone] Jelena David, [address] [facility] [place] [address] 10/31/2024 9:15 AM CDT Virtual Visit [facility] Gastroenterology Clinic [address] [phone] Meredith Carrera PA-C [address] [place] [address] 644885 12/20/2024 2:30 PM CDT Office Visit [facility] [address] [place] [phone] Esha Grimm PA-C [id number] [place] [phone] documented as of this encounter Visit Diagnoses Not on filedocumented in this encounter Additional Health Concerns Infection Onset Date Last Indicated Resolved Time Rule Out COVID-19 05/17/2022 05/17/2022 05/17/2022 10:20 PM SOFTWARE DESIGN MANAGER Rule Out COVID-19 06/09/2022 06/09/2022 06/09/2022 9:35 AM SOFTWARE DESIGN MANAGER COVID-19 06/09/2022 06/09/2022 06/30/2022 11:4 1 PM SOFTWARE DESIGN MANAGER Rule Out COVID-19 11/10/2022 11/10/2022 11/11/2022 [...] as of this encounter Care Teams Animal Caretaker Supervisor Relationship Specialty Start Date End Date Marija Edgar APRN SUPPLY REQUIREMENTS OFFICER PCP - General Nurse Practitioner 04/30/20 04/14/23 Esha Grimm PA-C [address] [place] [phone] PCP - General Family Medicine 05/04/23 Lita Oseguera Personal Advocate & Liaison (PAL) 02/28/20 03/27/23 Marija Edgar APRN SUPPLY REQUIREMENTS OFFICER Assigned PCP 06/08/20 04/29/23 Keisha Dotson MD [address] [place], [place] 296145 Assigned Neuroscience Provider 06/04/20 04/01/23 Diana Desir [facility] [address] [place], [place] [phone] Pharmacist Pharmacist 04/17/21 Rain Galaviz PA-C [address] [place] [address] [address] [place] [id number] Physician Telephone Betting Clerk Dermatology 04/28/21 Tvaia Wyatt MD [address] [place] [address] [address] [place] [id number] Dermatology 07/14/21 Erica Farrell APRN SUPPLY REQUIREMENTS OFFICER [address] [id number] [place], [place] [address] Nurse Practitioner Cardiovascular Disease 09/09/21 Tavia Wyatt MD 101 [place], [place] 738160 Assigned Surgical Provider 11/29/21 05/07/22 Rich Barrett MD 101 [place] [address] Physician Ophthalmology 01/21/22 Neil Kent MD 500 [place] [address] Dermatology 02/24/22 Roney Story DPM [address] [facility] 300 [place] [address] Assigned Musculoskeletal Provider 03/20/22 08/13/22 Diana Desir, [facility] [address] [place] [address] Assigned MTM Pharmacist 04/07/22 Jelena David OD [address] [facility] [address] [place] [address] Assigned Surgical Provider 05/08/22 10/08/22 Galo Burrell MD Assigned Heart and Vascular Provider 04/17/22 06/11/22 Livan Sharif MD [address] [place] [id number] Cardiovascular Disease 05/14/22 Livan Sharif MD [address] [place] [id number] Assigned Heart and Vascular Provider 06/12/22 07/23/22 Catherine Cm MD [address] [place] [address] Cardiovascular Disease 07/21/22 Valery Veronica, PA-C [address] [place] [address] 913955 Physician Telephone Betting Clerk Dermatology 07/21/22 Catherine Cm MD [address] [place], [place] 695085 Assigned Heart and Vascular Provider 07/24/22 11/05/22 [place] [address] [place] [address] 864714 Assigned Musculoskeletal Provider 08/14/22 10/08/22 Brea Quinn APRN SUPPLY REQUIREMENTS OFFICER [address] [place] [address] Nurse Practitioner Dermatology 09/21/22 Brea Quinn APRN SUPPLY REQUIREMENTS OFFICER 64[address] [facility] [place] [address] Assigned Surgical Provider 10/09/22 05/01/24 [place] [address] [facility] 300 [place] [address] Assigned Musculoskeletal Provider 10/09/22 05/01/24 Livan Sharif MD [address] [facility] [address] [place] [address] Assigned Heart and Vascular Provider 11/06/22 11/12/22 Catherine Cm MD [address] [phone] [place] [id number] Assigned Heart and Vascular Provider 11/13/22 05/27/23 Sydnie Martinez, RN Personal Advocate & Liaison (PAL) Family Medicine 03/28/23 07/31/23 Alfonso Renteria MD 5775 [facility] 200 [place] [address] Assigned Neuroscience Provider 04/02/23 09/29/24 Cheng Todd PA-C [address] [place] [address] Assigned PCP 04/30/23 07/15/23 Radha Lomeli APRN SUPPLY REQUIREMENTS OFFICER [address] [id number] [place] [address] Assigned Heart and Vascular Provider 05/28/23 Jelena David OD [address] [facility] [address] [place] [address] MD Ophthalmology 06/15/23 Pao Joseph, RN Personal Advocate & Liaison (PAL) Nurse 08/01/23 11/07/23 Esha Grimm PA-C [address] [place] [phone] Assigned PCP 07/16/23 Valery Veronica PA-C [address] [place] [address] 436165 Physician Telephone Betting Clerk Dermatology 09/19/23 Rey Tay MD [address] [place] [address] Gastroenterology 09/20/23 Rocky Zepeda DO [address] [place] [address] 230715 Physician Gastroenterology 09/20/23 Philip Dumont MD [address] [place] [address] 061775 Physician Ophthalmology 09/22/23 Meredith Carrera PA-C [address] [place] [address] 244525 Assigned Gastroenterology Provider 11/01/23 Neil Kent MD [address] [phone] Dermatology 11/02/23 [place] [address] [place] [address] Neurological Surgery 12/26/23 Audrey Waite PA-C 500 [place] [address] Physician Telephone Betting Clerk Dermatology 02/28/24 Valery Veronica PA-C [address] [place] [address] Physician Telephone Betting Clerk Dermatology 04/10/24 Herminia Hatch MD [address] [place] [address] [phone] Assigned Rheumatology Provider 07/02/24 [place] [address] [place] [address] [place] [id number] Ophthalmology 08/30/24 [place] [address] [place] [address] Assigned Neuroscience Provider 09/30/24 Maru Man PA-C [address] [place] [address] Physician Telephone Betting Clerk Dermatology 10/03/24 documented as of this encounter
--- OUTSIDE RECORDS SUMMARY | 2024-10-18 19:19 | XMS_ITS | Clinical Summary ---
Author Organization [facility] Address [address] [address] Phone Care Team Providers Care Sap Integration Architect Name Role Phone Unavailable Primary Care Provider [...]
--- OUTSIDE RECORDS SUMMARY | 2024-10-18 19:19 | XMS_ITS | Encounter Summary ---
Author Organization [facility] Address [address] [place] [address] Care Team Providers Care Dental Technician Apprentice Name Role Phone Lita Oseguera Unavailable Unavailable Marija Edgar APRN CHAIN SAW OPERATOR Primary Care Provider + Chanelle Mccann APRN CNM Unavailab le Kyara De La Fuente RN Unavailable [phone] Marija Edgar APRN CHAIN SAW OPERATOR Unavailable Mynor Broussard MD Unavailable [phone] Keisha Dotson MD Unavailable Galo Burrell MD Unavailable Unavailable Cristina Wood Unavailable Diana Desir [facility] Unavailable Rain Galaviz PA-C Unavailable Summer Lara MD Unavailable [phone] Summer Lara MD Unavailable [phone] Summer Lara MD Unavailable [phone] Tavia Wyatt MD Unavailable Johnny Murillo MD Unavailable Erica Farrell APRN CHAIN SAW OPERATOR Unavailable VikasTeresita [facility] Unavailable Tavia Wyatt MD Unavailable Diana Desir [facility] Unavailable Rich Barrett MD Unavailable [phone] Neil Kent MD Unavailable Roney Story DP Unavailable Erica Farrell APRN CHAIN SAW OPERATOR Unavailable Diana Desir [facility] Unavailable Jelena David Unavailable Galo Burrell MD Unavailable Unavailable Livan Sharif MD Unavailable Livan Sharif MD Unavailable Catherine Cm MD Unavailable + Valery Veronica-C Unavailable [phone] Catherine Cm MD Unavailable + Johnny Murillo MD Unavailable [phone] Brea Quinn SENIOR BRAND MANAGER CHAIN SAW OPERATOR Unavailable [phone] Brea Quinn SENIOR BRAND MANAGER CHAIN SAW OPERATOR Unavailable [phone] Jose Francisco Johnson MD Unavailable Livan Sharif MD Unavailable Catherine Cm MD Unavailable + Sydnie Martinez RN Unavailable Unavailable Alfonso Renteria MD Unavailable Esha Grimm PA-C Primary Care Provider Cheng Todd PA-C Unavailable Radha Lomeli SENIOR BRAND MANAGER CHAIN SAW OPERATOR Unavailable Jelena David OD Unavailable [phone] Pao Joseph RN Unavailable Unavailable Esha Grimm PA-C Unavailable [phone] Valery Veronica PA-C Unavailable Rey Tay MD Unavailable Rocky Zepeda DO Unavailable Philip Dumont MD Unavailable Meredith Carrera PA-C Unavailable [phone] Neil Kent MD Unavailable Juan Pablo Emmanuel MD Unavailable [phone] Audrey Waite PA-C Unavailable Valery Veronica PA-C Unavailable Herminia Hatch MD Unavailable Jelena David OD Unavailable Juan Pablo Emmanuel MD Unavailable [phone] Maru Man PA-C Unavailable Encounter Details Date Type Department Care Team (Late st Contact Info) Description 01/06/2021 Orders Only [facility] - Surgical Specialties Service Line On license of [facility] [place] [address] Saurabh Marcial MD [address] [facility] 200 [place] [address] Indication for care in labor [...] do you attend [facility] or rastafari services? More than 4 times [...] 09/29/2020 [facility] - Occupational [...] PM CDT Legal Sex Female 4:13 AM EMBRYOLOGY PROFESSOR Gender Identity Female 03/02/2021 5:45 PM [...] Description 10/22/2024 11:00 AM CDT Office Visit [facility] [address] [phone] Maru Man PA-C [address] [address] 10/23/2024 PRE VISIT [facility] Neurology [facility] - [address] [phone] Jhonny Penn MD [address] [place] [address] Previsit 10/23/2024 9:30 AM CDT Office Visit [facility] Neurology [facility] - [address], [address] [phone] [place] [address] [place], [place] [address] Johnny Penn MD [address] [place] [address] 10/24/2024 4:00 PM CDT Office Visit [facility] [place] [address] [facility] [address] [place] [phone] Jelena David, [address] [facility] [place] [address] 10/31/2024 9:15 AM CDT Virtual Visit [facility] Gastroenterology Clinic [address] 4th [place] [phone] Meredith Carrera PA-C [address] [place] [address] 12/20/2024 2:30 PM CDT Office Visit [facility] [address] [place] [address] Esha Grimm PA-C [address] [place] [address] documented as of this encounter Results * Asymptomatic COVID-19 Virus (Coronavirus) by PCR (01/09/2021 10:44 AM CDT) COVID-19 Virus PCR to [facility] - Source Nasopharyngeal 01/09/2021 10:45 AM CDT [facility] COVID-19 Virus PCR to [facility] - Result Test received-See reflex to IDDL test SARS CoV2 (COVID-19) Virus RT-PCR 01/09/2021 6:32 PM CDT [facility] Specimen from nasopharyngeal structure (specimen) 01/09/2021 10:44 AM CDT 01/09/2021 10:45 AM CDT Saurabh Marcial MD LAB - MICRO GENERAL [place]YA [place] Final Result [facility] [address] [place] [address], [facility] [address] [place] [address], [facility] [phone] documented in this encounter Visit Diagnoses Diagnosis Indication for care in labor and delivery, antepartum- Primary Unspecified indication for care or intervention related to labor and delivery, antepartum documented in this encounter Additional Health Concerns Infection Onset Date Last Indicated Resolved Time Rule Out COVID-19 05/11/2021 05/11/2021 05/13/2021 10:18 AM CDT Rule Out COVID-19 07/13/2021 07/13/2021 07/14/2021 3:04 PM EMBRYOLOGY PROFESSOR Rule Out COVID-19 07/18/2021 07/18/202107/20/2021 1:56 PM EMBRYOLOGY PROFESSOR COVID-19 07/18/2021 07/18/2021 08/08/2021 11:3 9 PM EMBRYOLOGY PROFESSOR Rule Out COVID-19 12/18/2021 12/18/2021 12/19/2021 11:34 AM CDT Rule Out COVID-19 02/24/2022 02/24/2022 02/25/2022 1:08 PM CDT Rule Out COVID-19 04/26/2022 04/26/2022 04/26/2022 6:47 AM CDT Rule Out COVID-19 05/17/2022 05/17/2022 05/17/2022 10:20 PM EMBRYOLOGY PROFESSOR Rule Out COVID-19 06/09/2022 06/09/2022 06/09/2022 9:35 AM EMBRYOLOGY PROFESSOR COVID-19 06/09/2022 06/09/2022 06/30/2022 11:4 1 PM EMBRYOLOGY PROFESSOR Rule Out COVID-19 11/10/2022 11/10/2022 11/11/2022 [...] as of this encounter Care Teams Dental Technician Apprentice Relationship Specialty Start Date End Date Marija Edgar APRN CNP PCP - General Nurse Practitioner 04/30/20 04/14/23 Esha Grimm PA-C [address] [place] [phone] PCP - General Family Medicine 05/04/23 Lita Oseguera Personal Advocate & Liaison (PAL) 02/28/20 03/27/23 Chanelle Mccann APRN CNM [address] [place], [address] [place] [address] Assigned OBGYN Provider 05/02/2005/09 Kyara De La Fuente, RN Specialty Overseer [employer] Neurology 06/04/20 03/05/21 Marija Edgar APRN CHAIN SAW OPERATOR Assigned PCP 06/08/20 04/29/23 Mynor Broussard MD 6363 [facility] 500 [place], [place] 041685 Assigned Surgical Provider 06/01/20 11/28/21 Keisha Dotson MD 9 [place] [address] Assigned Neuroscience Provider 06/04/20 04/01/23 aGlo Burrell MD Assigned Heart and Vascular Provider 10/05/20 04/02/22 Cristina Wood Financial Resource Worker 02/09/21 02/09/21 Diana Desir [facility] [address], [place] 336[address] Pharmacist Pharmacist 04/17/21 Rain Galaviz PA-C [address] [place] [address] [facility] [address] [place] [address] Physician Physician Coding Specialist Dermatology 04/28/21 Summer Lara MD [address] [place] [address] Assigned OBGYN Provider 05/10/2105/23 Summer Lara MD [address] [place] [address] Assigned OBGYN Provider 05/31/21 Summer Lara MD [address] [place] [address] Assigned OBGYN Provider 05/24/2105/30 Tavia Wyatt MD [address] [place] [address] Dermatology 07/14/21 Johnny Murillo MD [facility] [place] [address] Assigned Musculoskeletal Provider 08/30/21 03/17/22 Erica Farrell APRN CHAIN SAW OPERATOR [facility]5 [facility] [address] [place] [address] Nurse Practitioner Cardiovascular Disease 09/09/21 Teresita Bean [facility] [address] [place] [address] Pharmacist Pharmacist 09/24/21 09/29/21 Tavia Wyatt MD [address] [place] [address] 176404 Assigned Surgical Provider 11/29/21 05/07/22 Diana Desir [facility] [address] [place] [address] Assigned MTM Pharmacist 01/02/22 Rich Barrett MD [address] [place] [address] Physician Ophthalmology 01/21/22 Neil Kent MD 500 [place] [address] Dermatology 02/24/22 Roney Story DPM [address] [facility] [address] [place] [address] Assigned Musculoskeletal Provider 03/20/22 08/13/22 Erica Farrell APRN CHAIN SAW OPERATOR [address] [place] [address] Assigned Heart and Vascular Provider 04/03/22 04/16/22 Diana Desir [facility] [address] [place] [address] Assigned MTM Pharmacist 04/07/22 Jelena David OD [address] [facility] [address] Assigned Surgical Provider 05/08/22 10/08/22 Galo Burrell MD Assigned Heart and Vascular Provider 04/17/22 06/11/22 Livan Sharif MD [address] [place] [address] Cardiovascular Disease 05/14/22 Livan Sharif MD [address] [place] [address] Assigned Heart and Vascular Provider 06/12/22 07/23/22 Catherine Cm MD [address] [place] [address] Cardiovascular Disease 07/21/22 Valery Veronica, PA-C [address] [place] [address] 987285 Physician Physician Coding Specialist Dermatology 07/21/22 Catherine Cm MD [address] [place] [address] Assigned Heart and Vascular Provider 07/24/22 11/05/22 Johnny Murillo MD [address] 080084 Assigned Musculoskeletal Provider 08/14/22 10/08/22 Brea Quinn APRN CHAIN SAW OPERATOR [address] [place] [address] 797435 Nurse Practitioner Dermatology 09/21/22 Brea Quinn APRN CHAIN SAW OPERATOR [address] [place], [place] [address], [place] 195[address] Assigned Surgical Provider 10/09/22 05/01/24 [place] [address] [place] [address] Assigned Musculoskeletal Provider 10/09/22 05/01/24 Livan Sharif MD [address] [place] [phone] Assigned Heart and Vascular Provider 11/06/22 11/12/22 Catherine Cm MD [address] [place] 114285 Assigned Heart and Vascular Provider 11/13/22 05/27/23 Sydnie Martinez RN Personal Advocate & Liaison ([facility]) Family Medicine 03/28/23 07/31/23 Alfonso Renteria MD 5775 [facility] 200 [place] [address] Assigned Neuroscience Provider 04/02/23 09/29/24 Cheng Todd PA-C [address] [place] [address] [phone] Assigned PCP 04/30/23 07/15/23 Radha Lomeli, SENIOR BRAND MANAGER CHAIN SAW OPERATOR [address] [place] [address] Assigned Heart and Vascular Provider 05/28/23 Jelena David OD [address] [facility] [address] Ophthalmology 06/15/23 Pao Joseph, RN Personal Advocate & Liaison (PAL) Nurse 08/01/23 11/07/23 Esha Grimm PA-C [address] [place] [phone] Assigned PCP 07/16/23 Valery Veronica PA-C [address] [place] [address] 903475 Physician Physician Coding Specialist Dermatology 09/19/23 Rey Tay MD [address] [place] [address] 927775 Gastroenterology 09/20/23 Rocky Zepeda DO [address] [place] [address] 056415 Physician Gastroenterology 09/20/23 Philip Dumont MD [address] [place] [address] 198255 Physician Ophthalmology 09/22/23 Meredith Carrera PA-C [address] [place] [address] 300815 Assigned Gastroenterology Provider 11/01/23 Neil Kent MD [address] [address] Dermatology 11/02/23 [place] [address] [place] [address] Neurological Surgery 12/26/23 Audrey Waite PA-C [address] [place] [address] Physician Physician Coding Specialist Dermatology 02/28/24 Valery Veronica PA-C 866331 [address], [place] [address] Physician Physician Coding Specialist Dermatology 04/10/24 Herminia Hatch MD [address] [place] [address] Assigned Rheumatology Provider 07/02/24 Jelena David OD [address] [facility] [address] Ophthalmology 08/30/24 [place] [address] [place] [place] [address] Assigned Neuroscience Provider 09/30/24 Maru Man PA-C [address] [place] [address] Physician Physician Coding Specialist Dermatology 10/03/24 documented as of this encounter
--- OUTSIDE RECORDS SUMMARY | 2024-10-18 19:19 | XMS_ITS | Encounter Summary ---
Author Organization [place] Address [address] [place] [address] Care Team Providers Care Acid Condenser Name Role Phone Lita Oseguera Unavailable Unavailable Marija Edgar APRN VOCATIONAL TEACHER Primary Care Provider + Marija Edgar APRN VOCATIONAL TEACHER Unavailable [phone] Keisha Dotson MD Unavailable Diana Desir [facility] Unavailable Rain Galaviz PA-C Unavailable Tavia Wyatt MD Unavailable Erica Farrell APRN VOCATIONAL TEACHER Unavailable Tavia Wyatt MD Unavailable [phone] Rich Barrett MD Unavailable [phone] Neil Kent MD Unavailable Roney Story DPM Unavailable Diana Desir [facility] Unavailable Jelena David OD Unavailable Galo Burrell MD Unavailable Unavailable Livan Sharif MD Unavailable Livan Sharif MD Unavailable IsCatherine hobbs MD Unavailable + Valery Veronica PA-C Unavailable Catherine Cm MD Unavailable + Johnny Murillo MD Unavailable Brea Quinn POTTERY DECORATOR VOCATIONAL TEACHER Unavailable [phone] Brea Quinn POTTERY DECORATOR VOCATIONAL TEACHER Unavailable [phone] Jose Francisco Johnson MD Unavailable Livan Sharif MD Unavailable Catherine Cm MD Unavailable + Sydnie Martinez RN Unavailable Unavailable Alfonso Renteria MD Unavailable [phone] Esha Grimm PA-C Primary Care Provider Cheng Todd PA-C Unavailable Radha Lomeli POTTERY DECORATOR VOCATIONAL TEACHER Unavailable Jelena David OD Unavailable Pao Joseph RN Unavailable Unavailable Esha Grimm PA-C Unavailable [phone] Valery Veronica PA-C Unavailable Rey Tay MD Unavailable Rocky Zepeda DO Unavailable Philip Dumont MD Unavailable Meredith Carrera PA-C Unavailable Neil Kent MD Unavailable Juan Pablo Emmanuel MD Unavailable Audrey Waite PA-C Unavailable Valery Veronica PA-C Unavailable Herminia Hatch MD Unavailable Frankie Jelena Garcia OD Unavailable Juan Pablo Emmanuel MD Unavailable Maru Man PA-C Unavailable [phone] Encounter Details Date Type Department Care Team (Late st Contact Info) Description 04/20/2022 MyC Medical Advice [facility] Heart [facility] [address] [facility] [address] [place] [phone] Margaret Rendon, VJ Social History Tobacco [...] How often do you attend gnosticist or denominational serv ices? Never 09/22/2021 Do [...] a skilled nursing (including now)? No 09/22/2021 Sanford Depression Scale Answer Date Recorded Sanford Depression Score 5 01/14/2021 Last EPDS Self Harm Result Not on file 01/14 Education Answer Date Recorded What is the highest level of school you have completed or the highest degree you have received? 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 SUIT ATTENDANT Gender Identity Female 03/02/2021 5:45 PM [...] Description 10/22/2024 11:00 AM CDT Office Visit [address] [phone] Maru Man PA-C [address] [address] 10/23/2024 PRE VISIT [facility] Neurology [facility] - [address] [phone] Johnny Penn MD [address] [facility] [place], [place] [address] Previsit 10/23/2024 9:30 AM CDT Office Visit [facility] Neurology [address], [address] [address] [place] [address] [place], [place] [phone] Johnny Penn MD [address] [place] [address] 10/24/2024 4:00 PM CDT Office Visit [facility] [address] [facility] [address] [place] [phone] Jelena David, [address] [facility] [place] [address] 10/31/2024 9:15 AM CDT Virtual Visit [facility] G[facility]ology [facility] [address] [phone] Meredith Carrera PA-C [address] [place] [address] 12/20/2024 2:30 PM CDT Office Visit [facility] [address] [place] [phone] Esah Grimm PA-C [id number] [place] [phone] documented as of this encounter Visit Diagnoses Not on filedocumented in this encounter Additional Health Concerns Infection Onset Date Last Indicated Resolved Time Rule Out COVID-19 04/26/2022 04/26/2022 04/26/2022 6:47 AM CDT Rule Out COVID-19 05/17/2022 05/17/2022 05/17/2022 10:20 PM SUIT ATTENDANT Rule Out COVID-19 06/09/2022 06/09/2022 06/09/2022 9:35 AM SUIT ATTENDANT COVID-19 06/09/2022 06/09/2022 06/30/2022 11:4 1 PM SUIT ATTENDANT Rule Out COVID-19 11/10/2022 11/10/2022 11/11/2022 [...] as of this encounter Care Teams Acid Condenser Relationship Specialty Start Date End Date Marija Edgar APRN VOCATIONAL TEACHER PCP - General Nurse Practitioner 04/30/20 04/14/23 Esha Grimm PA-C [address] [place] [phone] PCP - General Family Medicine 05/04/23 Lita Oseguera Personal Advocate & Liaison (PAL) 02/28/20 03/27/23 Marija Edgar APRN VOCATIONAL TEACHER Assigned PCP 06/08/20 04/29/23 Keisha Dotson MD 909 [place], [place] 748735 Assigned Neuroscience Provider 06/04/20 04/01/23 Diana Desir [facility] 3033 [place], [place] [phone] Pharmacist Pharmacist 04/17/21 Rain Galaviz PA-C [address] [place] [address] [address] [place] [address] Physician Tube Sorter Dermatology 04/28/21 Tavia Wyatt MD [address] [place] [address] [address] Lara [place] [address] Dermatology 07/14/21 Erica Farrell APRN VOCATIONAL TEACHER [address] [id number] [place] [address] Nurse Practitioner Cardiovascular Disease 09/09/21 Tavia Wyatt MD 101 [place] [address] Assigned Surgical Provider 11/29/21 05/07/22 Rich Barrett MD 101 [place] [address] Physician Ophthalmology 01/21/22 Neil Kent MD 500 [place] [address] Dermatology 02/24/22 Roney Story DPM [address] [facility] 300 [place], [place] 253307 Assigned Musculoskeletal Provider 03/20/22 08/13/22 Diana Desir, [facility] 3033 [place] [address] Assigned MTM Pharmacist 04/07/22 [place] [address] [place] [address] Assigned Surgical Provider 05/08/22 10/08/22 Galo Burrell MD Assigned Heart and Vascular Provider 04/17/22 06/11/22 Livan Sharif MD [address] [place] [address] Cardiovascular Disease 05/14/22 Livan Sharif MD [address] [place] [address] Assigned Heart and Vascular Provider 06/12/22 07/23/22 Catherine Cm MD [address] [place] [address] Cardiovascular Disease 07/21/22 Valery Veronica, PA-C [address] [place] [address] Physician Tube Sorter Dermatology 07/21/22 Catherine Cm MD [address] [place] [address] Assigned Heart and Vascular Provider 07/24/22 11/05/22 Johnny Murillo MD [address] [address] Assigned Musculoskeletal Provider 08/14/22 10/08/22 Brea Quinn APRN VOCATIONAL TEACHER 500 [place] [address] Nurse Practitioner Dermatology 09/21/22 Brea Quinn APRN VOCATIONAL TEACHER 6401 [facility] [place] [address] Assigned Surgical Provider 10/09/22 05/01/24 [place] [address] [place] [address] Assigned Musculoskeletal Provider 10/09/22 05/01/24 Livan Sharif MD [address] [id number] [place] [address] Assigned Heart and Vascular Provider 11/06/22 11/12/22 Catherine Cm MD [address] 2[address] [place] 238835 Assigned Heart and Vascular Provider 11/13/22 05/27/23 Sydnie Martinez, RN Personal Advocate & Liaison (PAL) Family Medicine 03/28/23 07/31/23 Alfonso Renteria MD 5775 [facility] 200 [place] [address] Assigned Neuroscience Provider 04/02/23 09/29/24 Cheng Todd PA-C [address] [place] [address] Assigned PCP 04/30/23 07/15/23 Radha Lomeli APRN VOCATIONAL TEACHER 6[address] [facility] [address] [place] [address] Assigned Heart and Vascular Provider 05/28/23 Jelena David OD [address] [place] [address] MD Ophthalmology 06/15/23 Pao Joseph, VJ Personal Advocate & Liaison (PAL) Nurse 08/01/23 11/07/23 Esha Grimm PA-C [address] [place] [phone] Assigned PCP 07/16/23 Valery Veronica PA-C [address] [place] [address] 928695 Physician Tube Sorter Dermatology 09/19/23 Rey Tay MD [address] [place] [address] 996415 Gastroenterology 09/20/23 Rocky Zepeda DO [address] [place] [address] 183355 Physician Gastroenterology 09/20/23 Philip Dumont MD [address] [place] [address] 463915 Physician Ophthalmology 09/22/23 Meredith Carrera PA-C [address] [place] [address] 549725 Assigned Gastroenterology Provider 11/01/23 Neil Kent MD [address] 107450 Dermatology 11/02/23 [place] [address] [place] [address] Neurological Surgery 12/26/23 Audrey Waite PA-C 500 [place] [address] Physician Tube Sorter Dermatology 02/28/24 Valery Veronica PA-C 671014 [place], [place] 894719 Physician Tube Sorter Dermatology 04/10/24 Herminia Hatch MD [facility]5 [place], [place] 23639125 Assigned Rheumatology Provider 07/02/24 [place] OD [address] [place] [address] Ophthalmology 08/30/24 [place] [address] [place] [address] Assigned Neuroscience Provider 09/30/24 Maru Man PA-C [address] [place] [address] Physician Tube Sorter Dermatology 10/03/24 documented as of this encounter
--- OUTSIDE RECORDS SUMMARY | 2024-10-18 19:19 | XMS_ITS | Encounter Summary ---
Author Organization [place] Address [address] [place] [address] Care Team Providers Care Store Standards Associate Name Role Phone Lita Oseguera Unavailable Unavailable Marija Edgar APRN TRUST ADMINISTRATIVE ASSISTANT Primary Care Provider + Chanelle Mccann APRN CNM Unavailab le Kyara De La Fuente RN Unavailable [phone] Marija Edgar APRN TRUST ADMINISTRATIVE ASSISTANT Unavailable Mynor Broussard MD Unavailable [phone] Keisha Dotson MD Unavailable Stacey Briones SENIOR MICROSOFT CONSULTANT Unavailable Lesley Guillermo CHW Unavailable Mary Mejia Unavailable Unavailable Lita Oseguera Unavailable Unavailable Galo Burrell MD Unavailable Unavailable Cristina Wood Unavailable Lesley Guillermo CHW Unavailable Meredith Bedoya Unavailable Unavailable Cristina Wood Unavailable Diana Desir [facility] Unavailable Rain Galaviz PA-C Unavailable Summer Lara MD Unavailable [phone] Summer Lara MD Unavailable [phone] Summer Lara MD Unavailable [phone] Tavia Wyatt MD Unavailable [phone] Johnny Murillo MD Unavailable [phone] Erica Farrell RECRUITING COORDINATOR TRUST ADMINISTRATIVE ASSISTANT Unavailable Vikas Teresitakaren Watson [facility] Unavailable Tavia Wyatt MD Unavailable [phone] Diana Desir [facility] Unavailable [phone] Rich Barrett MD Unavailable Neil Kent MD Unavailable Roney StoryM Unavailable Erica Farrell RECRUITING COORDINATOR TRUST ADMINISTRATIVE ASSISTANT Unavailable Diana Desir [facility] Unavailable [phone] Jelena David OD Unavailable Galo Burrell MD Unavailable Unavailable Livan Sharif MD Unavailable Livan Sharif MD Unavailable Catherine Cm MD Unavailable + Valery Veronica PA-C Unavailable [phone] Catherine Cm MD Unavailable + Johnny Murillo MD Unavailable [phone] Brea Quinn APRN TRUST ADMINISTRATIVE ASSISTANT Unavailable [phone] Brea Quinn APRN TRUST ADMINISTRATIVE ASSISTANT Unavailable [phone] Jose Francisco Johnson MD Unavailable Livan Sharif MD Unavailable + Catherine Cm MD Unavailable + Sydnie Martinez RN Unavailable Unavailable Alfonso Renteria MD Unavailable [phone] Esha Grimm PA-C Primary Care Provider Perez Chengjc Fish PA-C Unavailable ArmaniRadha ARLENE TRUST ADMINISTRATIVE ASSISTANT Unavailable Jelena David OD Unavailable Pao Joseph RN Unavailable Unavailable Esha Grimm PA-C Unavailable [phone] Valery Veronica PA-C Unavailable Rey Tay [...] 09/02/2020 [facility] Care Coordination [facility] [address] [place] [phone] Mary Mejia Social History Tobacco Use Types [...] Answer Date Recorded PHQ-2 Score 0 08/12/2020 [facility] of Occupat ional [...] PM CDT Legal Sex Female 4:13 AM AIRPLANE DESIGNER Gender Identity Female 03/02/2021 5:45 PM CDT Sexual Orientation Straight 02/28/2020 12 :51 AM CDT COVID-19 Exposure Response Date Recorded In the last month, have you been in contact with someone who was confirmed or suspected to have Coronavirus / COVID-19? No / Unsure 09/05/2020 2:50 PM AIRPLANE DESIGNER documented as of this encounter Plan of Treatment Upcoming Encounters Date Type Department Care Team (Late st Contact Info) Description 10/22/2024 11:00 AM CDT Office Visit [facility] [address] [phone] Maru Man PA-C [address] [address] 10/23/2024 PRE VISIT [facility] Neurology [facility] - [address], [address] [place] [phone] Johnny Penn MD [address] [place] 567775 Previsit 10/23/2024 9:30 AM CDT Office Visit [facility] Neurology [facility] - [address], [address] [place] [phone] [place] [address] [place] [address] Johnny Penn MD [address] [place] 797715 10/24/2024 4:00 PM CDT [facility] [address] [facility] [address] [place] [phone] Jelena David, [place] 3305 [facility] [place] [address] 10/31/2024 9:15 AM CDT Virtual Visit [facility] Gastroenterology Clinic [address] 4th [place] [phone] Meredith Carrera PA-C [address] [place] [address] 12/20/2024 2:30 PM CDT Office Visit [facility] [address] [place] [address] Esha Grimm PA-C [address] [place] [address] documented as of this encounter Visit Diagnoses Not on filedocumented in this encounter Additional Health Concerns Infection Onset Date Last Indicated Resolved Time Rule Out COVID-19 09/24/2020 09/24/2020 09/24/2020 9:24 AM CDT Rule Out COVID-19 11/05/2020 11/05/2020 11/06/2020 1:09 PM CDT Rule Out COVID-19 05/11/2021 05/11/2021 05/13/2021 10:18 AM CDT Rule Out COVID-19 07/13/2021 07/13/2021 07/14/2021 3:04 PM AIRPLANE DESIGNER Rule Out COVID-19 07/18/2021 07/18/2021 07/20/2021 1:56 PM AIRPLANE DESIGNER COVID-19 07/18/2021 07/18/2021 08/08/2021 11:3 9 PM AIRPLANE DESIGNER Rule Out COVID-19 12/18/2021 12/18/2021 12/19/2021 11:34 AM CDT Rule Out COVID-19 02/24/2022 02/24/2022 02/25/2022 1:08 PM CDT Rule Out COVID-19 04/26/2022 04/26/2022 04/26/2022 6:47 AM CDT Rule Out COVID-19 05/17/2022 05/17/2022 05/17/2022 10:20 PM AIRPLANE DESIGNER Rule Out COVID-19 06/09/2022 06/09/2022 06/09/2022 9:35 AM AIRPLANE DESIGNER COVID-19 06/09/2022 06/09/2022 06/30/2022 11:4 1 PM AIRPLANE DESIGNER Rule Out COVID-19 11/10/2022 11/10/2022 11/11/2022 12:17 PM CDT Rule Out COVID-19 03/07/2023 03/07/2023 03/07/2023 1:20 PM CDT Rule Out COVID-19 12/26/2023 12/26/2023 12/26/2023 9:50 AM CDT Rule Out COVID-19 04/09/2024 04/09/2024 04/10/2024 6:48 PM CDT Rule Out COVID-19 10/04/2024 10/04/2024 10/05/2024 9:42 AM CDT Assessment Noted Time PHQ-9 Depression Total Score: 9 06/25/20 20 7:04 AM AIRPLANE DESIGNER documented as of this encounter Care Teams Store Standards Associate Relationship Specialty Start Date End Date Marija Edgar APRN TRUST ADMINISTRATIVE ASSISTANT PCP - General Nurse Practitioner 04/30/20 04/14/23 Esha Grimm PA-C [address] [place] [phone] PCP - General Family Medicine 05/04/23 Lita Oseguera Personal Advocate & Liaison (PAL) 02/28/20 03/27/23 Chanelle Mccann APRN CNM [address] [facility] [facility], [address] 0275[address] Assigned OBGYN Provider 05/02/2005/09 Kyara De La Fuente, RN Specialty Odd Jobs Day Worker Neurology 06/04/20 03/05/21 Marija Edgar APRN TRUST ADMINISTRATIVE ASSISTANT Assigned PCP 06/08/20 04/29/23 Mynor Broussard MD [address] [address] Assigned Surgical Provider 06/01/20 11/28/21 Keisha Dotson MD 909 [place], [place] 006515 Assigned Neuroscience Provider 06/04/20 04/01/23 Stacey Briones, [facility] Lead Odd Jobs Day Worker Primary Care - CC 08/11/2012/30 Lesley Guillermo, [facility] Community Health Worker 08/11/2010/01 Mary Mejia Financial Resource Worker 09/02/20 10/06/20 Lita Oseguera Personal Advocate & Liaison (PAL) Family Medicine 09/10/20 09/21/20 Galo Burrell MD Assigned Heart and Vascular Provider 10/05/20 04/02/22 Cristina Wood Financial Resource Worker 10/07/20 10/14/20 Lesley Guillermo, [facility] Community Health Worker 10/23/2012/30 Meredith Bedoya Financial Resource Worker 10/23/20 11/23/20 Cristina Wood Financial Resource Worker 02/09/21 02/09/21 Diana Desir, [facility] 3033 [place] [address] Pharmacist Pharmacist 04/17/21 Rain Galaviz PA-C [address] [facility] [address] [place] [place] [address] Physician Asbestos Hazard Abatement Worker Dermatology 04/28/21 Summer Lara MD [address] [facility] [place] [address] Assigned OBGYN Provider 05/10/2105/23 Summer Lara MD [address] [place] [address] Assigned OBGYN Provider 05/31/21 Summer Lara MD [address] [facility] [place] [address] Assigned OBGYN Provider 05/24/2105/30 Tavia Wyatt MD [address] [place] [address] Dermatology 07/14/21 Johnny Murillo MD [address] [place] [address] Assigned Musculoskeletal Provider 08/30/21 03/17/22 Erica Farrell APRN TRUST ADMINISTRATIVE ASSISTANT [address] [facility] [address] [place] [address] Nurse Practitioner Cardiovascular Disease 09/09/21 Teresita Bean, [facility] [address] [place] [address] Pharmacist Pharmacist 09/24/21 09/29/21 Tavia Wyatt MD [address] [place] [address] Assigned Surgical Provider 11/29/21 05/07/22 Diana Desir, [facility] [address] [place] [address] Assigned MTM Pharmacist 01/02/22 Rich Barrett MD [address] [place] [address] Physician Ophthalmology 01/21/22 Neil Kent MD 500 [place] [address] Dermatology 02/24/22 Roney Story DPM [address] [facility] [address] [place] [address] Assigned Musculoskeletal Provider 03/20/22 08/13/22 Erica Farrell APRN TRUST ADMINISTRATIVE ASSISTANT 1700 [place] [address] Assigned Heart and Vascular Provider 04/03/22 04/16/22 Diana Desir, [facility] [address] [place] [address] Assigned MTM Pharmacist 04/07/22 Jelena David OD [address] [place] [address] [place] [address] Assigned Surgical Provider 05/08/22 10/08/22 Galo Burrell MD Assigned Heart and Vascular Provider 04/17/22 06/11/22 Livan Sharif MD [address] [place] 570345 Cardiovascular Disease 05/14/22 Livan Sharif MD [address] [place] 059965 Assigned Heart and Vascular Provider 06/12/22 07/23/22 Catherine Cm MD [address] [place] [phone] Cardiovascular Disease 07/21/22 Valery Veronica, PA-C [address] [place] [address] 917745 Physician Asbestos Hazard Abatement Worker Dermatology 07/21/22 Catherine Cm MD [address] [facility] [address] [place] 834505 Assigned Heart and Vascular Provider 07/24/22 11/05/22 Johnny Murillo MD [address] [place] [address] 096064 Assigned Musculoskeletal Provider 08/14/22 10/08/22 Brea Quinn APRN TRUST ADMINISTRATIVE ASSISTANT [address] [place] [address] 598245 Nurse Practitioner Dermatology 09/21/22 Brea Quinn APRN TRUST ADMINISTRATIVE ASSISTANT [address] [place] [address] [place] 773902 Assigned Surgical Provider 10/09/22 05/01/24 [place] [address] [place] [address] Assigned Musculoskeletal Provider 10/09/22 05/01/24 Livan Sharif MD [address] [place] [address] Assigned Heart and Vascular Provider 11/06/22 11/12/22 Catherine Cm MD [address] [facility]00 [place] [address] Assigned Heart and Vascular Provider 11/13/22 05/27/23 Sydnie Martinez RN Personal Advocate & Liaison (PAL) Family Medicine 03/28/23 07/31/23 Alfonso Renteria MD 5775 [facility] 200 [place] [address] Assigned Neuroscience Provider 04/02/23 09/29/24 Cheng Todd PA-C [address] [place] [address] [phone] Assigned PCP 04/30/23 07/15/23 Radha Lomeli APRN TRUST ADMINISTRATIVE ASSISTANT [address] [place] [address] Assigned Heart and Vascular Provider 05/28/23 Jelena David OD [address] [facility] [place] [address] MD Ophthalmology 06/15/23 Pao Joseph, RN Personal Advocate & Liaison (PAL) Nurse 08/01/23 11/07/23 Esha Grimm PA-C [address] [place] [phone] Assigned PCP 07/16/23 Valery Veronica PA-C [address] [place] [address] 535595 Physician Asbestos Hazard Abatement Worker Dermatology 09/19/23 Rey Tay MD [address] [place] [address] 878105 MD Gastroenterology 09/20/23 Rocky Zepeda DO [address] [place] [address] 281345 Physician Gastroenterology 09/20/23 Philip Dumont MD [address] [place] [address] 402005 Physician Ophthalmology 09/22/23 Meredith Carrera PA-C [address] [place] [address] 804135 Assigned Gastroenterology Provider 11/01/23 Neil Kent MD [address] [place] [address] 094490 Dermatology 11/02/23 [place] [address] [place] [address] Neurological Surgery 12/26/23 Audrey Waite PA-C 500 [place] [address] Physician Asbestos Hazard Abatement Worker Dermatology 02/28/24 Valery Veronica PA-C [address] [place] [address] Physician Asbestos Hazard Abatement Worker Dermatology 04/10/24 Herminia Hatch MD [address] [place] [address] [phone] Assigned Rheumatology Provider 07/02/24 Jelena David OD [address] [facility] [place] [address] Ophthalmology 08/30/24 [place] [address] [place] [address] Assigned Neuroscience Provider 09/30/24 Maru Man PA-C [address] [address] Physician Asbestos Hazard Abatement Worker Dermatology 10/03/24 documented as of this encounter
--- OUTSIDE RECORDS SUMMARY | 2024-10-18 19:19 | XMS_ITS | Encounter Summary ---
Author Organization [facility] Address [address] [place] [address] Care Team Providers Care Fast Brim Pouncer Name Role Phone Lita Oseguera Unavailable Unavailable Marija Edgar APRN RN ICU Primary Care Provider + Marija Edgar APRN RN ICU Unavailable [phone] Keisha Dotson MD Unavailable Diana Desir [facility] Unavailable Rain Galaviz PA-C Unavailable Tavia Wyatt MD Unavailable Erica Farrell APRN [facility] Unavailable Tavia Wyatt MD Unavailable [phone] Rich Barrett MD Unavailable [phone] Neil Kent MD Unavailable Roney Story DPM Unavailable [phone] Erica Farrell APRN RN ICU Unavailable Diana Desir [facility] Unavailable Jelena David OD Unavailable Galo Burrell MD Unavailable Unavailable Livan Sharif MD Unavailable Livan Sharif MD Unavailable IsraynaCatherine boothe MD Unavailable + Valery Veronica PA-C Unavailable [phone] IsCatherine hobbs MD Unavailable + Johnny Murillo MD Unavailable [phone] Brea Quinn ONLINE MARKETING DIRECTOR RN ICU Unavailable [phone] Brea Quinn ONLINE MARKETING DIRECTOR RN ICU Unavailable [phone] Jose Francisco Johnson MD Unavailable Livan Sharif MD Unavailable Isfaby, Catherine Marques MD Unavailable + Sydnie Martinez RN Unavailable Unavailable Alfonso Renteria MD Unavailable [phone] Esha Grimm PA-C Primary Care Provider Cheng Todd PA-C Unavailable Radha Lomeli ONLINE MARKETING DIRECTOR RN ICU Unavailable [phone] Jelena David SONJA Unavailable Pao Joseph RN Unavailable Unavailable Esha Grimm PA-C Unavailable [phone] Valery Veronica PA-C Unavailable [phone] Rey Tay MD Unavailable Rocky Zepeda DO Unavailable Philip Dumont MD Unavailable [phone] Meredith Carrera PA-C Unavailable [phone] Neil Kent MD Unavailable Juan Pablo Emmanuel MD Unavailable Audrey Waite PA-C Unavailable Valery Veronica PA-C Unavailable Herminia Hatch MD Unavailable Jelena David OD Unavailable Juan Pablo Emmanuel MD Unavailable Maru Man PA-C Unavailable Encounter Details Date Type Department Care Team (Late st Contact Info) Description 04/07/2022 MyC Medical Advice [address] [address] Diana Desir, [facility] [address] [place] [address] Social History Tobacco Use [...] How often do you attend samaritan or christianity serv ices? Never 09/22/2021 Do [...] Score 2 12/18/2021 [facility] [...] in a mcfp (including now)? No 09/22/2021 Ethel Depression Scale Answer Date Recorded Ethel Depression Score 5 01/14/2021 Last EPDS Self Harm Result Not on file 01/14 Education Answer Date Recorded What is the highest level of school you have completed or the highest degree you have received? 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 FARMER Gender Identity Female 03/02/2021 5:45 PM CDT [...] Description 10/22/2024 11:00 AM CDT Office Visit [address] [phone] Maru Man PA-C [address] [place] [address] 665220 10/23/2024 PRE VISIT [facility] - [address], [address] [place] [address] Johnny Penn MD [address] [place] 475975 Previsit 10/23/2024 9:30 AM CDT Office Visit [facility] [place] [address] [facility], [address] [place] [phone] [place] [address] [place] [address] Johnny Penn MD [address] [facility] [place] [address] 10/24/2024 4:00 PM CDT Office Visit [facility] [address] [place] [phone] Jelena David, [address] [facility] [place] [address] 10/31/2024 9:15 AM CDT Virtual Visit [facility] [address] [phone] Meredith Carrera PA-C [address] [place] [address] 12/20/2024 2:30 PM CDT Office Visit [facility] [phone] [place] [phone] Esha Grimm PA-C [address] [place] [phone] documented as of this encounter Visit Diagnoses Not on filedocumented in this encounter Additional Health Concerns Infection Onset Date Last Indicated Resolved Time Rule Out COVID-19 04/26/2022 04/26/2022 04/26/2022 6:47 AM CDT Rule Out COVID-19 05/17/2022 05/17/2022 05/17/2022 10:20 PM WHEAT FARMER Rule Out COVID-19 06/09/2022 06/09/2022 06/09/2022 9:35 AM WHEAT FARMER COVID-19 06/09/2022 06/09/2022 06/30/2022 11:4 1 PM WHEAT FARMER Rule Out COVID-19 11/10/2022 11/10/2022 11/11/2022 [...] documented as of this encounter Care Teams Fast Brim Pouncer Relationship Specialty Start Date End Date Marija Edgar APRN RN ICU PCP - General Nurse Practitioner 04/30/20 04/14/23 Esha Grimm PA-C [address] [place] [phone] PCP - General Family Medicine 05/04/23 Lita Oseguera Personal Advocate & Liaison (PAL) 02/28/20 03/27/23 Marija Edgar APRN RN ICU Assigned PCP 06/08/20 04/29/23 Keisha Dotson MD 909 [place] [address] Assigned Neuroscience Provider 06/04/20 04/01/23 Diana Desir, [facility] [address] [place] [address] Pharmacist Pharmacist 04/17/21 Rain Galaviz PA-C [address] [place] [address] [address] [place] [address] Physician Assessment Director Dermatology 04/28/21 Tavia Wyatt MD [address] [place] [address] [address] [place] [address] Dermatology 07/14/21 Erica Farrell APRN RN ICU [address] 4978000 [place], [place] 707565 Nurse Practitioner Cardiovascular Disease 09/09/21 Tavia Wyatt MD 101 [place], [place] 492180 Assigned Surgical Provider 11/29/21 05/07/22 Rich Barrett MD 101 [place] [address] Physician Ophthalmology 01/21/22 Neil Kent MD 500 [place] [address] Dermatology 02/24/22 Roney Story DPM [address] [facility] 300 [place] [address] Assigned Musculoskeletal Provider 03/20/22 08/13/22 Erica Farrell APRN RN ICU 1700 [place] [address] Assigned Heart and Vascular Provider 04/03/22 04/16/22 Diana Desir, [facility] [address] [facility] [address] Assigned MTM Pharmacist 04/07/22 Jelena David OD [address] [place] [address] Assigned Surgical Provider 05/08/22 10/08/22 Galo Burrell MD Assigned Heart and Vascular Provider 04/17/22 06/11/22 Livan Sharif MD [address] [place] [address] Cardiovascular Disease 05/14/22 Livan Sharif MD [address] [place] [address] Assigned Heart and Vascular Provider 06/12/22 07/23/22 Catherine Cm MD [address] [place] [address] Cardiovascular Disease 07/21/22 Valery Veronica PA-C 909 [place], [place] 186365 Physician Assessment Director Dermatology 07/21/22 Catherine Cm MD [address] [place] 517365 Assigned Heart and Vascular Provider 07/24/22 11/05/22 Johnny Murillo MD [address] [address] Assigned Musculoskeletal Provider 08/14/22 10/08/22 Brea Quinn APRN RN ICU 500 [place] [address] Nurse Practitioner Dermatology 09/21/22 Brea Quinn APRN RN ICU 6401 [place] [address] Assigned Surgical Provider 10/09/22 05/01/24 [place] [address] [facility] 300 [place] [address] Assigned Musculoskeletal Provider 10/09/22 05/01/24 Livan Sharif MD 6405 [facility] [address] [place] [address] Assigned Heart and Vascular Provider 11/06/22 11/12/22 Catherine Cm MD 6[address] [facility] [address] [place] [address] Assigned Heart and Vascular Provider 11/13/22 05/27/23 Sydnie Martinez RN Personal Advocate & Liaison (PAL) Family Medicine 03/28/23 07/31/23 Alfonso Renteria MD 5775 [facility] 200 [place], [place] 492846 Assigned Neuroscience Provider 04/02/23 09/29/24 Cheng Todd PA-C [address] [place] [address] Assigned PCP 04/30/23 07/15/23 Radha Lomeli APRN RN ICU [address] [facility] [address] [place] [address] Assigned Heart and Vascular Provider 05/28/23 Jelena David OD [address] [place] [address] MD Ophthalmology 06/15/23 Pao Joseph, VJ Personal Advocate & Liaison (PAL) Nurse 08/01/23 11/07/23 Esha Grimm PA-C [address] [place] [address] Assigned PCP 07/16/23 Valery Veronica PA-C [address] [place] [address] Physician Assessment Director Dermatology 09/19/23 Rey Tay MD [address] [place] [address] 985595 Gastroenterology 09/20/23 Rocky Zepeda DO [address] [place] [address] 951195 Physician Gastroenterology 09/20/23 Philip Dumont MD [address] [place] [address] 493815 Physician Ophthalmology 09/22/23 Meredith Carrera PA-C 909 [place] [address] Assigned Gastroenterology Provider 11/01/23 Neil Kent MD [address] [address] Dermatology 11/02/23 [place] [address] [place] 632587 Neurological Surgery 12/26/23 Audrey Waite PA-C 500 [place] [address] Physician Assessment Director Dermatology 02/28/24 Valery Veronica PA-C 219029 [address], [place] [address] Physician Assessment Director Dermatology 04/10/24 Herminia Hatch MD [facility]5 [place], [place] 95790125 Assigned Rheumatology Provider 07/02/24 Jelena David OD [address] [place] [address] Ophthalmology 08/30/24 [place] [address] [place] [address] Assigned Neuroscience Provider 09/30/24 Maru Man PA-C [address] [place] [address] Physician Assessment Director Dermatology 10/03/24 documented as of this encounter
--- OUTSIDE RECORDS SUMMARY | 2024-10-18 19:19 | XMS_ITS | Encounter Summary ---
Author Organization [facility] Address [address] [place] [address] Care Team Providers Care Roll Contour Grinder Name Role Phone Lita Oseguera Unavailable Unavailable Marija Edgar APRN TRAVEL CONSULTANT Primary Care Provider + Chanelle Mccann FLIGHT ENGINEER INSPECTOR CNM Unavailab le Kyara De La Fuente RN Unavailable [phone] Marija Edgar APRN TRAVEL CONSULTANT Unavailable Mynor Broussard MD Unavailable [phone] Keisha Dotson MD Unavailable Stacey Briones FOOD SERVICE SPECIALIST Unavailable Galo Burrell MD Unavailable Unavailable Lesley Guillermo CHW Unavailable Meredith Bedoya Unavailable Unavailable Cristina Wood Unavailable Diana Desir [facility] Unavailable Rain Galaviz PA-C Unavailable [phone] Summer Lara MD Unavailable [phone] Summer Lara MD Unavailable Summer Lara MD Unavailable [phone] Tavia Wyatt MD Unavailable Johnny Murillo MD Unavailable [phone] Erica Farrell FLIGHT ENGINEER INSPECTOR TRAVEL CONSULTANT Unavailable Vikas Teresita Watson [facility] Unavailable Tavia Wyatt MD Unavailable [phone] Diana Desir [facility] Unavailable Rich Barrett MD Unavailable Neil Kent MD Unavailable Roney Story DPM Unavailable Erica Farrell FLIGHT ENGINEER INSPECTOR TRAVEL CONSULTANT Unavailable Diana Desir [facility] Unavailable Jelena David Unavailable Galo Burrell MD Unavailable Unavailable Livan Sharif MD Unavailable + Livan Sharif MD Unavailable + Catherine Cm MD Unavailable + Valery Veronica PA-C Unavailable [phone] Catherine Cm MD Unavailable + Johnny Murillo MD Unavailable [phone] Brea Quinn FLIGHT ENGINEER INSPECTOR TRAVEL CONSULTANT Unavailable [phone] Brea Quinn FLIGHT ENGINEER INSPECTOR TRAVEL CONSULTANT Unavailable [phone] Jose Francisco Johnson MD Unavailable Livan Sharif MD Unavailable Catherine Cm MD Unavailable + Sydnie Martinez RN Unavailable Unavailable Alfonso Renteria MD Unavailable [phone] [place], Esha M PA-C Primary Care Provider Cheng Todd PA-C Unavailable Radha Lomeli APRN TRAVEL CONSULTANT Unavailable Jelena David OD Unavailable Pao Joseph RN Unavailable Unavailable Esha Grimm PA-C Unavailable [phone] Valery Veronica PA-C Unavailable Rey Tay MD Unavailable Rocky Zepeda DO Unavailable Philip Dumont MD Unavailable Meredith Carrera PA-C Unavailable Neil Kent MD Unavailable Juan Pablo Emmanuel MD Unavailable Audrey Waite PA-C Unavailable JeremíasValery damon PA-C Unavailable Herminia Hatch MD Unavailable Jelena David OD Unavailable Juan Pablo Emmanuel MD Unavailable Maru Man PA-C Unavailable Encounter Details Date Type Department Care Team (Late st Contact Info) Description 10/24/2020 MyC Medical Advice [address] [address] Marija Edgar APRN TRAVEL CONSULTANT [address] [place] [address] Social History Tobacco Use Types Packs/Day [...] week 08/07/2020 How often do you attend [facility] or alevism services? More than 4 times [...] Date Recorded PHQ-2 Score 3 09/29/2020 [facility] [...] PM CDT Legal Sex Female 4:13 AM ANNUAL CAMPAIGN MANAGER Gender Identity Female 03/02/2021 5:45 PM [...] 11:44 AM CDT Replied to patient via [employer]IR[employer]. Anthony Doe PA-C on 10/27/2020 at 11:54 AM documented in this encounter Plan of Treatment Upcoming Encounters Date Type Department Care Team (Late st Contact Info) Description 10/22/2024 11:00 AM CDT Office Visit [address] [address] Maru Man PA-C [address] [place] [address] 10/23/[address] [facility] - [address] [phone] Johnny Penn MD [address] [place] [address] Previsit 10/23/2024 9:30 AM CDT Office Visit [facility] - [address] [phone] [place] [address] [place], [place] 154427 Johnny Penn MD [address] [place] 8[address]295 10/24/2024 4:00 PM CDT Office Visit [facility] [place] [address] [facility] [address] [place] [phone] Jelena David, [place] [address] [facility] [place] [address] 10/31/2024 9:15 AM CDT Virtual Visit [facility] [address] 4th [place] [phone] Meredith Carrera PA-C [address] [place] [address] 12/20/2024 2:30 PM CDT Office Visit [facility] [address] [place] [phone] Esha Grimm PA-C [address] [place] [address] documented as of this encounter Visit Diagnoses Not on filedocumented in this encounter Additional Health Concerns Infection Onset Date Last Indicated Resolved Time Rule Out COVID-19 11/05/2020 11/05/2020 11/06/2020 1:09 PM CDT Rule Out COVID-19 05/11/2021 05/11/2021 05/13/2021 10:18 AM CDT Rule Out COVID-19 07/13/2021 07/13/2021 07/14/2021 3:04 PM ANNUAL CAMPAIGN MANAGER Rule Out COVID-19 07/18/2021 07/18/2021 07/20/2021 1:56 PM ANNUAL CAMPAIGN MANAGER COVID-19 07/18/2021 07/18/2021 08/08/2021 11:3 9 PM ANNUAL CAMPAIGN MANAGER Rule Out COVID-19 12/18/2021 12/18/2021 12/19/2021 11:34 AM CDT Rule Out COVID-19 02/24/2022 02/24/2022 02/25/2022 1:08 PM CDT Rule Out COVID-19 04/26/2022 04/26/2022 04/26/2022 6:47 AM CDT Rule Out COVID-19 05/17/2022 05/17/2022 05/17/2022 10:20 PM ANNUAL CAMPAIGN MANAGER Rule Out COVID-19 06/09/2022 06/09/2022 06/09/2022 9:35 AM ANNUAL CAMPAIGN MANAGER COVID-19 06/09/2022 06/09/2022 06/30/2022 11:4 1 PM ANNUAL CAMPAIGN MANAGER Rule Out COVID-19 11/10/2022 11/10/2022 11/11/2022 [...] as of this encounter Care Teams Roll Contour Grinder Relationship Specialty Start Date End Date Marija Edgar APRN TRAVEL CONSULTANT PCP - General Nurse Practitioner 04/30/20 04/14/23 Esha Grimm PA-C [address] [place] [phone] PCP - General Family Medicine 05/04/23 Lita Oseguera Personal Advocate & Liaison (PAL) 02/28/20 03/27/23 Chanelle Mccann APRN [place] [address] [address] Assigned OBGYN Provider 05/02/2005/09 Kyara De La Fuente, RN Specialty Regional Operations Manager Neurology 06/04/20 03/05/21 Marija Edgar APRN CNP Assigned PCP 06/08/20 04/29/23 Mynor Broussard MD [address] [place] [address] Assigned Surgical Provider 06/01/20 11/28/21 Keisha Dotson MD 909 [place], [place] 966105 Assigned Neuroscience Provider 06/04/20 04/01/23 Stacey Briones, [facility] Lead Regional Operations Manager Primary Care - CC 08/11/2012/30 Galo Burrell MD Assigned Heart and Vascular Provider 10/05/20 04/02/22 Lesley Guillermo, [facility] Community Health Worker 10/23/2012/30 Meredith Bedoya Financial Resource Worker 10/23/20 11/23/20 Cristina Wood Financial Resource Worker 02/09/21 02/09/21 Diana Desir, [facility] [address] [place], [place] 096766 Pharmacist Pharmacist 04/17/21 Rain Galaviz PA-C [address] [place] [address] [place] [address] Physician Museum Registrar Dermatology 04/28/21 Summer Lara MD [address] [place], [place] 2039[address] Assigned OBGYN Provider 05/10/2105/23 Summer Lara MD [address] [place], [place] [address] Assigned OBGYN Provider 05/31/21 Summer Lara MD [address] [place], [place] [address]594 Assigned OBGYN Provider 05/24/2105/30 Tavia Wyatt MD [address] [address] [place], [place] [address] Dermatology 07/14/21 Johnny Murillo MD [address] [facility] [address] [place], [place] 271014 Assigned Musculoskeletal Provider 08/30/21 03/17/22 Erica Farrell APRN TRAVEL CONSULTANT [address] [facility] [address] [place] 222735 Nurse Practitioner Cardiovascular Disease 09/09/21 Teresita Bean [facility] [address] [phone] Pharmacist Pharmacist 09/24/21 09/29/21 Tavia Wyatt MD [facility] [place], [place] 593470 Assigned Surgical Provider 11/29/21 05/07/22 Diana Desir, [facility] 30[address] [place] [address] Assigned MTM Pharmacist 01/02/22 Rich Barrett MD [address] [place] [address] Physician Ophthalmology 01/21/22 Neil Kent MD 500 [place], [place] 680265 Dermatology 02/24/22 Roney Story DPM [address] [facility] [address] [place] [address] Assigned Musculoskeletal Provider 03/20/22 08/13/22 Erica Farrell APRN TRAVEL CONSULTANT 1700 [place] [address] Assigned Heart and Vascular Provider 04/03/22 04/16/22 Diana Desir, [facility] 3033 [place] [address] Assigned MTM Pharmacist 04/07/22 Jelena David OD [address] [facility] [place] [address] Assigned Surgical Provider 05/08/22 10/08/22 Galo Burrell MD Assigned Heart and Vascular Provider 04/17/22 06/11/22 Livan Sharif MD 6[address] [facility] [address] [place] [address] Cardiovascular Disease 05/14/22 Livan Sharif MD [address] [facility] [address] [place] [address] Assigned Heart and Vascular Provider 06/12/22 07/23/22 Catherine Cm MD 6[address] [facility] [address] [place] [address] Cardiovascular Disease 07/21/22 Valery Veronica, PA-C [address] [place] [address] Physician Museum Registrar Dermatology 07/21/22 Catherine Cm MD [address] 7227100 [place] [address] Assigned Heart and Vascular Provider 07/24/22 11/05/22 Johnny Murillo MD [address] [place] [address] 016714 Assigned Musculoskeletal Provider 08/14/22 10/08/22 Brea Quinn APRN TRAVEL CONSULTANT [address] [place] [address] Nurse Practitioner Dermatology 09/21/22 Brea Quinn APRN TRAVEL CONSULTANT [address] [place] [address] [place] [address] Assigned Surgical Provider 10/09/22 05/01/24 [place] [address] [place] [address] Assigned Musculoskeletal Provider 10/09/22 05/01/24 Livan Sharif MD [address] [facility] [address] [place] [address] Assigned Heart and Vascular Provider 11/06/22 11/12/22 Catherine Cm MD [address] [facility] [address] [place] [address] Assigned Heart and Vascular Provider 11/13/22 05/27/23 Sydnie Martinez RN Personal Advocate & Liaison (PAL) Family Medicine 03/28/23 07/31/23 Alfonso Renteria MD 5775 [facility] 200 [place] [address] Assigned Neuroscience Provider 04/02/23 09/29/24 Cheng Tdod PA-C [address] [place] [address] Assigned PCP 04/30/23 07/15/23 Radha Lomeli APRN TRAVEL CONSULTANT [address] [place] [address] Assigned Heart and Vascular Provider 05/28/23 Jelena David OD [address] [place] [address] [place] [address] Ophthalmology 06/15/23 Pao Joseph, VJ Personal Advocate & Liaison (PAL) Nurse 08/01/23 11/07/23 Esha Grimm PA-C [address] [place] [address] Assigned PCP 07/16/23 Valery Veronica PA-C [address] [place] [address] 916655 Physician Museum Registrar Dermatology 09/19/23 Rey Tay MD [address] [place] [address] MD Gastroenterology 09/20/23 Rocky Zepeda DO [address] [place] [address] 696985 Physician Gastroenterology 09/20/23 Philip Dumont MD [address] [place] [address] 783955 Physician Ophthalmology 09/22/23 Meredith Carrera PA-C [address] [place] [address] 909005 Assigned Gastroenterology Provider 11/01/23 Neil Kent MD [address] 543270 Dermatology 11/02/23 [place] [address] [place] 799[address] Neurological Surgery 12/26/23 Audrey Waite PA-C [address] [place] [address] 986235 Physician Museum Registrar Dermatology 02/28/24 Valery Veronica PA-C [address] [facility] [place] [address] Physician Museum Registrar Dermatology 04/10/24 Herminia Hatch MD 1875 [place], [place] 38757125 Assigned Rheumatology Provider 07/02/24 Jelena David OD [address] [facility] [place] [address] Ophthalmology 08/30/24 [place] [address] [place] [address] Assigned Neuroscience Provider 09/30/24 Maru Man PA-C [address] [place] [address] Physician Museum Registrar Dermatology 10/03/24 documented as of this encounter
--- OUTSIDE RECORDS SUMMARY | 2024-10-18 19:19 | XMS_ITS | Encounter Summary ---
Author Organization [place] Address [address] [place] [address] Care Team Providers Care Car Knocker Name Role Phone Lita Oseguera Unavailable Unavailable Marija Edgar APRN STRATEGIC COMMUNICATIONS MANAGER Primary Care Provider + Chanelle Mccann APRN CNM Unavailab le Kyara De La Fuente RN Unavailable [phone] Marija Edgar APRN STRATEGIC COMMUNICATIONS MANAGER Unavailable [phone] Mynor Broussard MD Unavailable [phone] Keisha Dotson MD Unavailable Galo Burrell MD Unavailable Unavailable Cristina Wood Unavailable Diana Desir [facility] Unavailable Rain Galaviz PA-C Unavailable Summer Lara MD Unavailable [phone] Summer Lara MD Unavailable [phone] Summer Lara MD Unavailable [phone] Tavia Wyatt MD Unavailable Johnny Murillo MD Unavailable Erica Farrell APRN STRATEGIC COMMUNICATIONS MANAGER Unavailable VikasTeresita [facility] Unavailable Tavia Wyatt MD Unavailable Diana Desir [facility] Unavailable Rich Barrett MD Unavailable [phone] Neil Kent MD Unavailable Roney Story DP Unavailable Erica Farrell APRN STRATEGIC COMMUNICATIONS MANAGER Unavailable Diana Desir [facility] Unavailable Jelena David Unavailable Galo Burrell MD Unavailable Unavailable Livan Sharif MD Unavailable Livan Sharif MD Unavailable Catherine Cm MD Unavailable + Valery Veronica-C Unavailable [phone] Catherine Cm MD Unavailable + Johnny Murillo MD Unavailable [phone] Brea Quinn NURSING SCHEDULER STRATEGIC COMMUNICATIONS MANAGER Unavailable [phone] Brea Quinn NURSING SCHEDULER STRATEGIC COMMUNICATIONS MANAGER Unavailable [phone] Jose Francisco [place] MD Unavailable Livan Sharif MD Unavailable Catherine Cm MD Unavailable + Sydnie Martinez RN Unavailable Unavailable Alfonso Renteria MD Unavailable Esha Grimm PA-C Primary Care Provider Cheng Todd PA-C Unavailable Radha Lomeli NURSING SCHEDULER STRATEGIC COMMUNICATIONS MANAGER Unavailable Jelena David OD Unavailable Pao Joseph RN Unavailable Unavailable Esha Grimm PA-C Unavailable [phone] Valery Veronica PA-C Unavailable Rey Tay MD Unavailable Rocky Zepeda DO Unavailable Philip Dumont MD Unavailable [phone] Meredith Carrera PA-C Unavailable Neil Kent MD Unavailable Juan Pablo Emmanuel MD Unavailable [phone] Audrey Waite PA-C Unavailable [phone] Valery Veronica PA-C Unavailable [phone] Herminia Hatch MD Unavailable Jelena David OD Unavailable [phone] Juan Pablo Emmanuel MD Unavailable Maru Man PA-C Unavailable [phone] Encounter Details Date Type Department Care Team (Late st Contact Info) Description 01/02/2021 MyC Medical Advice [address] [phone] Kierra Eller Social History Tobacco [...] Answer Date Recorded PHQ-2 Score 3 09/29/2020 [facility] Occupat ional Health - Occupational Stress [...] PM CDT Legal Sex Female 4:13 AM RIVET SPINNER Gender Identity Female 03/02/2021 5:45 PM [...] Description 10/22/2024 11:00 AM CDT Office Visit [address] [phone] Maru Man PA-C [address] [place] [address] 10/23/2024 PRE VISIT [facility] - [address] [place] [phone] Johnny Penn MD [address] [place], [place] [address] Previsit 10/23/2024 9:30 AM CDT Office Visit [facility] - [address] [phone] [place] [address] [place], [place] [address] Johnny Penn MD [address] [place], [place] [address] 10/24/2024 4:00 PM CDT Office Visit [facility] [address] [place] [phone] Jelena David, [address] [facility] [address] 10/31/2024 9:15 AM CDT Virtual Visit [facility] Gastroenterology [address] 4[address] [place] [phone] Meredith Carrera PA-C [address] [place] [address] 12/20/2024 2:30 PM CDT Office Visit [address] [phone] Esha Grimm PA-C [address] [phone] documented as of this encounter Visit Diagnoses Not on filedocumented in this encounter Additional Health Concerns Infection Onset Date Last Indicated Resolved Time Rule Out COVID-19 05/11/2021 05/11/2021 05/13/2021 10:18 AM CDT Rule Out COVID-19 07/13/2021 07/13/2021 07/14/2021 3:04 PM RIVET SPINNER Rule Out COVID-19 07/18/2021 07/18/2021 07/20/2021 1:56 PM RIVET SPINNER COVID-19 07/18/2021 07/18/2021 08/08/2021 11:3 9 PM RIVET SPINNER Rule Out COVID-19 12/18/2021 12/18/2021 12/19/2021 11:34 AM CDT Rule Out COVID-19 02/24/2022 02/24/2022 02/25/2022 1:08 PM CDT Rule Out COVID-19 04/26/2022 04/26/2022 04/26/2022 6:47 AM CDT Rule Out COVID-19 05/17/2022 05/17/2022 05/17/2022 10:20 PM RIVET SPINNER Rule Out COVID-19 06/09/2022 06/09/2022 06/09/2022 9:35 AM RIVET SPINNER COVID-19 06/09/2022 06/09/2022 06/30/2022 11:4 1 PM RIVET SPINNER Rule Out COVID-19 11/10/2022 11/10/2022 11/11/2022 12:17 [...] as of this encounter Care Teams Car Knocker Relationship Specialty Start Date End Date Marija Edgar APRN STRATEGIC COMMUNICATIONS MANAGER PCP - General Nurse Practitioner 04/30/20 04/14/23 Esha Grimm PA-C [address] [place] [phone] PCP - General Family Medicine 05/04/23 Lita Oseguera Personal Advocate & Liaison (PAL) 02/28/20 03/27/23 [place] [address] [place] [address] [address] [place] [address] Assigned OBGYN Provider 05/02/2005/09 Kyara De La Fuente, RN Specialty Net Mender Neurology 06/04/20 03/05/21 Marija Edgar APRN STRATEGIC COMMUNICATIONS MANAGER Assigned PCP 06/08/20 04/29/23 Mynor Broussard MD [address] [facility] 500 [place] [address] Assigned Surgical Provider 06/01/20 11/28/21 Keisha Dotson MD [address] [place] [address] Assigned Neuroscience Provider 06/04/20 04/01/23 Galo Burrell MD Assigned Heart and Vascular Provider 10/05/20 04/02/22 Nina Cristina Financial Resource Worker 02/09/21 02/09/21 Diana Desir, [facility] [address] [place] [address] Pharmacist Pharmacist 04/17/21 Rain Galaviz PA-C [address] [place] [address] [place] [address] Physician Stuffer Dermatology 04/28/21 Summer Lara MD [address] [place] [address] Assigned OBGYN Provider 05/10/2105/23 Summer Lara MD [address] [place], [place] [address] Assigned OBGYN Provider 05/31/21 2 Summer Lara MD [address] [place], [place] [address] Assigned OBGYN Provider 05/24/2105/30 Tavia Wyatt MD [address] [place], [place] [address] Dermatology 07/14/21 Johnny Murillo MD [address] [place] [address] Assigned Musculoskeletal Provider 08/30/21 03/17/22 Erica Farrell APRN STRATEGIC COMMUNICATIONS MANAGER [address] [facility] [address] [place] [address] Nurse Practitioner Cardiovascular Disease 09/09/21 Teresita Bean [facility] [address] [place] [phone] Pharmacist Pharmacist 09/24/21 09/29/21 Tavia Wyatt MD [address] [place], [place] [phone] Assigned Surgical Provider 11/29/21 05/07/22 Diana Desir, [facility] [address] [place] [address] Assigned MTM Pharmacist 01/02/22 Rich Barrett MD [address] [place] [address] Physician Ophthalmology 01/21/22 Neil Kent MD [address] [place] [address] Dermatology 02/24/22 Roney Story DPM [address] [facility] [address] [place] [address] Assigned Musculoskeletal Provider 03/20/22 08/13/22 Erica Farrell APRN STRATEGIC COMMUNICATIONS MANAGER [address] [place] [address] Assigned Heart and Vascular Provider 04/03/22 04/16/22 Diana Desir, [facility] [address] [place] [address] Assigned MTM Pharmacist 04/07/22 Frankie Jelena GarciaSONJA [address] [facility] [address] Assigned Surgical Provider 05/08/22 10/08/22 Galo Burrell MD Assigned Heart and Vascular Provider 04/17/22 06/11/22 Livan Sharif MD [address] [place] [id number] Cardiovascular Disease 05/14/22 Livan Sharif MD [address] [place] [address] Assigned Heart and Vascular Provider 06/12/22 07/23/22 Catherine Cm MD [address] [place] [id number] Cardiovascular Disease 07/21/22 Valery Veronica, PA-C [address] [place], [place] [address] Physician Stuffer Dermatology 07/21/22 Catherine Cm MD [address] [place] [address]305 Assigned Heart and Vascular Provider 07/24/22 11/05/22 Johnny Murillo MD [address] [address] Assigned Musculoskeletal Provider 08/14/22 10/08/22 Brea Quinn APRN STRATEGIC COMMUNICATIONS MANAGER [address] [place] [address] Nurse Practitioner Dermatology 09/21/22 Brea Quinn APRN STRATEGIC COMMUNICATIONS MANAGER [address] [place] [address] Assigned Surgical Provider 10/09/22 05/01/24 [place] [address] [facility] [address] [place] [address] Assigned Musculoskeletal Provider 10/09/22 05/01/24 Livan Sharif MD [address] [facility] [address] [place] [address] Assigned Heart and Vascular Provider 11/06/22 11/12/22 Catherine Cm MD [address] [facility] [address] [place] [address] Assigned Heart and Vascular Provider 11/13/22 05/27/23 Sydnie Martinez RN Personal Advocate & Liaison (PAL) Family Medicine 03/28/23 07/31/23 Alfonso Renteria MD [address] [facility] 200 [place] [address] Assigned Neuroscience Provider 04/02/23 09/29/24 Cheng Todd PA-C [address] [place] [address] [phone] Assigned PCP 04/30/23 07/15/23 Radha Lomeli APRN STRATEGIC COMMUNICATIONS MANAGER [address] [place] [address] Assigned Heart and Vascular Provider 05/28/23 Jelena David OD [address] [facility] [address] MD Ophthalmology 06/15/23 Pao Joseph, RN Personal Advocate & Liaison (PAL) Nurse 08/01/23 11/07/23 Esha Grimm PA-C [address] [place] [phone] Assigned PCP 07/16/23 Valery Veronica PA-C [address] [place] [address] 022665 Physician Stuffer Dermatology 09/19/23 Rey Tay MD [address] [place] [address] Gastroenterology 09/20/23 Rocky Zepeda DO [address] [place] [address] [phone] Physician Gastroenterology 09/20/23 Philip Dumont MD [address] [place] [address] 086065 Physician Ophthalmology 09/22/23 Meredith Carrera PA-C [address] [place] [address] [phone] Assigned Gastroenterology Provider 11/01/23 Neil Kent MD [address] [place] [address] MD Dermatology 11/02/23 [place] [address] [place] [address] MD Neurological Surgery 12/26/23 Audrey Waite PA-C 500 [place] [address] Physician Stuffer Dermatology 02/28/24 Valery Veronica PA-C 873893 [address], [place] [address] Physician Stuffer Dermatology 04/10/24 Herminia Hatch MD [facility]5 [place], [place] [id number] Assigned Rheumatology Provider 07/02/24 [place] [address] [place] [address] [place] [address] Ophthalmology 08/30/24 [place] [address] [place] [address] Assigned Neuroscience Provider 09/30/24 Maru Man PA-C [address] [place] [address] Physician Stuffer Dermatology 10/03/24 documented as of this encounter
--- OUTSIDE RECORDS SUMMARY | 2024-10-18 19:19 | XMS_ITS | Encounter Summary ---
Author Organization [facility] Address [address] [place] [address] Care Team Providers Care Powertrain Control Systems Engineer Name Role Phone Lita Oseguera Unavailable Unavailable Marija Edgar APRN MARKET RESEARCH SPECIALIST Primary Care Provider + Chanelle Mccann APRN CNM Unavailab le Kyara De La Fuente RN Unavailable [phone] Marija Edgar APRN MARKET RESEARCH SPECIALIST Unavailable Mynor Broussard MD Unavailable [phone] Keisha Dotson MD Unavailable [phone] Stacey Briones [employer] Unavailable Lesley Guillermo CHW Unavailable Mary Mejia Unavailable Unavailable Lita Oseguera Unavailable Unavailable Galo Burrell MD Unavailable Unavailable Cristina Wood Unavailable Lesley Guillermo CHW Unavailable Meredith Bedoya Unavailable Unavailable Cristina Wood Unavailable Diana Desir [facility] Unavailable Rain Galaviz PA-C Unavailable Summer Lara MD Unavailable [phone] Summer Lara MD Unavailable [phone] Summer Lara MD Unavailable [phone] Tavia Wyatt MD Unavailable [phone] Johnny Murillo MD Unavailable [phone] Erica Farrell SITE DAMAGE PREVENTION TECHNICIAN MARKET RESEARCH SPECIALIST Unavailable Vikas Teresitakaren Watson [facility] Unavailable Tavia Wyatt MD Unavailable [phone] Diana Desir [facility] Unavailable [phone] Rich Barrett MD Unavailable Neil Kent MD Unavailable Roney StoryM Unavailable Erica Farrell SITE DAMAGE PREVENTION TECHNICIAN MARKET RESEARCH SPECIALIST Unavailable Diana Desir [facility] Unavailable [phone] Jelena David OD Unavailable Galo Burrell MD Unavailable Unavailable Livan Sharif MD Unavailable Livan Sharif MD Unavailable Catherine Cm MD Unavailable + Valery Veronica PA-C Unavailable [phone] Catherine Cm MD Unavailable + Johnny Murillo MD Unavailable +[phone] Brea Quinn APRN MARKET RESEARCH SPECIALIST Unavailable [phone] Brea Quinn APRN MARKET RESEARCH SPECIALIST Unavailable [phone] Jose Francisco Johnson MD Unavailable Livan Sharif MD Unavailable + Catherine Cm MD Unavailable + Sydnie Martinez RN Unavailable Unavailable Alfonso Renteria MD Unavailable [phone] Esha Grimm PA-C Primary Care Provider Cheng Todd PA-C Unavailable Radha Lomeli APRN MARKET RESEARCH SPECIALIST Unavailable Jelena David OD Unavailable Pao Joseph RN Unavailable Unavailable Esha Grimm PA-C Unavailable [phone] Valery Veronica PA-C Unavailable Rey Tay MD Unavailable Rocky Zepeda DO Unavailable Philip Dumont MD Unavailable Meredith Carrera PA-C Unavailable Neil Kent MD Unavailable Juan Pablo Emmanuel MD Unavailable Audrey Waite PA-C Unavailable Valery Veronica PA-C Unavailable Herminia Hatch MD Unavailable Jelena David OD Unavailable Juan Pablo Emmanuel MD Unavailable [phone] Maru Man PA-C Unavailable Reason for Visit * Reason Onset Date Comments MyChart Communication 09/08/2020 Encounter Details Date Type Department Care Team (Latest Contact Info) Description 09/08/2020 [facility] [address] [phone] Marija Edgar APRN MARKET RESEARCH SPECIALIST [address] [facility] [place] [phone] MyChart Communication Social History Tobacco Use Types [...] Answer Date Recorded PHQ-2 Score 0 08/12/2020 [facility] - [...] PM CDT Legal Sex Female 4:13 AM PRODUCT/INDUSTRY CONSULTANT Gender Identity Female 03/02/2021 5:45 PM CDT Sexual Orientation Straight 02/28/2020 12 :51 AM CDT COVID-19 Exposure Response Date Recorded In the last month, have you been in contact with someone who was confirmed or suspected to have Coronavirus / COVID-19? No / Unsure 09/09/2020 10:09 AM PRODUCT/INDUSTRY CONSULTANT documented as of this encounter Miscellaneous [...] RN, BSN Message handled by CLINIC NURSE.' UCT/INDUSTRY CONSULTANT * Telephone Encounter - Ever Cardozo MA - 09/09/2020 7:08 AM CST Triage, could you please see if results are posted yet in regards to patients ultrasound. Ever Cardozo [facility] UCT/INDUSTRY CONSULTANT documented in this encounter Plan of Treatment Upcoming Encounters Date Type Department Care Team (Late st Contact Info) Description 10/22/2024 11:00 AM CDT Office Visit [facility] [address] [phone] Maru Man PA-C [address] [address] 10/23/2024 PRE VISIT [facility] - [address], [address] [place] [phone] Johnny Penn MD [address] [place] [phone] Previsit 10/23/2024 9:30 AM CDT Office Visit [facility] - [address], [address] [place] [phone] [place] [address] [place] [phone] Johnny Penn MD [address] [place] [id number] 10/24/2024 4:00 PM CDT Office Visit [facility] [address] [facility] [address] [place] [phone] Jelena David, [address] [facility] [place] [address] 10/31/2024 9:15 AM CDT Virtual Visit [facility] [address] [place] [phone] Meredith Carrera PA-C [address] [place] [address] 622175 12/20/2024 2:30 PM CDT Office Visit [facility] [id number] [place] [phone] Esha Grimm PA-C [address] [place] [address] documented as of this encounter Visit Diagnoses Not on filedocumented in this encounter Additional Health Concerns Infection Onset Date Last Indicated Resolved Time Rule Out COVID-19 09/24/2020 09/24/2020 09/24/2020 9:24 AM CDT Rule Out COVID-19 11/05/2020 11/05/2020 11/06/2020 1:09 PM CDT Rule Out COVID-19 05/11/2021 05/11/2021 05/13/2021 10:18 AM CDT Rule Out COVID-19 07/13/2021 07/13/2021 07/14/2021 3:04 PM PRODUCT/INDUSTRY CONSULTANT Rule Out COVID-19 07/18/2021 07/18/2021 07/20/2021 1:56 PM PRODUCT/INDUSTRY CONSULTANT COVID-19 07/18/2021 07/18/2021 08/08/2021 11:3 9 PM PRODUCT/INDUSTRY CONSULTANT Rule Out COVID-19 12/18/2021 12/18/2021 12/19/2021 11:34 AM CDT Rule Out COVID-19 02/24/2022 02/24/2022 02/25/2022 1:08 PM CDT Rule Out COVID-19 04/26/2022 04/26/2022 04/26/2022 6:47 AM CDT Rule Out COVID-19 05/17/2022 05/17/2022 05/17/2022 10:20 PM PRODUCT/INDUSTRY CONSULTANT Rule Out COVID-19 06/09/2022 06/09/2022 06/09/2022 9:35 AM PRODUCT/INDUSTRY CONSULTANT COVID-19 06/09/2022 06/09/2022 06/30/2022 11:4 1 PM PRODUCT/INDUSTRY CONSULTANT Rule Out COVID-19 11/10/2022 11/10/2022 11/11/2022 12:17 PM CDT Rule Out COVID-19 03/07/2023 03/07/2023 03/07/2023 1:20 PM CDT Rule Out COVID-19 12/26/2023 12/26/2023 12/26/2023 9:50 AM CDT Rule Out COVID-19 04/09/2024 04/09/2024 04/10/2024 6:48 PM CDT Rule Out COVID-19 10/04/2024 10/04/2024 10/05/2024 9:42 AM CDT Assessment Noted Time PHQ-9 Depression Total Score: 9 06/25/20 20 7:04 AM PRODUCT/INDUSTRY CONSULTANT documented as of this encounter Care Teams Powertrain Control Systems Engineer Relationship Specialty Start Date End Date Marija Edgar APRN MARKET RESEARCH SPECIALIST PCP - General Nurse Practitioner 04/30/20 04/14/23 Esha Grimm PA-C [address] [place] [phone] PCP - General Family Medicine 05/04/23 Lita Oseguera Personal Advocate & Liaison (PAL) 02/28/20 03/27/23 [place] [address] [place] [address] [address] [place] [address] Assigned OBGYN Provider 05/02/2005/09 Kyara De La Fuente, RN Specialty Telecommunications Facility Examiner Neurology 06/04/20 03/05/21 Marija Edgar APRN MARKET RESEARCH SPECIALIST Assigned PCP 06/08/20 04/29/23 Mynor Broussard MD [address] [facility] 500 [place], [place] [phone] Assigned Surgical Provider 06/01/20 11/28/21 Keisha Dotson MD [address] [place] [address] Assigned Neuroscience Provider 06/04/20 04/01/23 Stacey Briones, [facility] Lead Telecommunications Facility Examiner Primary Care - CC 08/11/2012/30 Lesley Guillermo, [facility] Community Health Worker 08/11/2010/01 JackieAditiMary Financial Resource Worker 09/02/20 10/06/20 Lita Oseguera Personal Advocate & Liaison (PAL) Family Medicine 09/10/20 09/21/20 Galo Burrell MD Assigned Heart and Vascular Provider 10/05/20 04/02/22 Cristina Wood Financial Resource Worker 10/07/20 10/14/20 Lesley Guillermo, [facility] Community Health Worker 10/23/2012/30 Meredith Bedoya Financial Resource Worker 10/23/20 11/23/20 Cristina Wood Financial Resource Worker 02/09/21 02/09/21 Diana Desir, [facility] [address] [place], [place] [address] Pharmacist Pharmacist 04/17/21 Rain Galaviz PA-C [address] [place] [address] [address] [place], [place] [phone] Physician Gravity Prospecting Supervisor Dermatology 04/28/21 Summer Lara MD [address] [place] [address] [phone] Assigned OBGYN Provider 05/10/2105/23 Summer Lara MD [address] [place] [address] [phone] Assigned OBGYN Provider 05/31/21 2 Summer Lara MD [address] [place], [place] [address] Assigned OBGYN Provider 05/24/2105/30 Tavia Wyatt MD [address] [place], [place] 4[address] Dermatology 07/14/21 Johnny Murillo MD [address] [place], [place] [address] Assigned Musculoskeletal Provider 08/30/21 03/17/22 Erica Farrell APRN MARKET RESEARCH SPECIALIST [address] [facility] [address] [place] [address] Nurse Practitioner Cardiovascular Disease 09/09/21 Teresita Bean [facility] [address] [place], [place] [phone] Pharmacist Pharmacist 09/24/21 09/29/21 Tavia Wyatt MD [address] [place], [place] [phone] Assigned Surgical Provider 11/29/21 05/07/22 Diana Desir [facility] [address] [place] [address] Assigned MTM Pharmacist 01/02/22 Rich Barrett MD [address] [place] [address] Physician Ophthalmology 01/21/22 Neil Kent MD 500 [place] [address] Dermatology 02/24/22 Roney Story DPM [address] [facility] [address] [place] [address] Assigned Musculoskeletal Provider 03/20/22 08/13/22 Erica Farrell APRN MARKET RESEARCH SPECIALIST [address] [place] [address] Assigned Heart and Vascular Provider 04/03/22 04/16/22 Diana Desir, [facility] [address] [place] [address] Assigned MTM Pharmacist 04/07/22 Jelena David OD [address] [facility] [place] [address] Assigned Surgical Provider 05/08/22 10/08/22 Galo Burrell MD Assigned Heart and Vascular Provider 04/17/22 06/11/22 Livan Sharif MD [address] [place] [address] Cardiovascular Disease 05/14/22 Livan Sharif MD [address] [place] [address] Assigned Heart and Vascular Provider 06/12/22 07/23/22 Catherine Cm MD [address] [facility] [address] [place] [address] Cardiovascular Disease 07/21/22 Valery Veronica PAUcheC [address] [place] [address] Physician Gravity Prospecting Supervisor Dermatology 07/21/22 Catherine Cm MD [address] [facility] [address] [place] [address] Assigned Heart and Vascular Provider 07/24/22 11/05/22 Johnny Murillo MD [address] [place] [address] Assigned Musculoskeletal Provider 08/14/22 10/08/22 Brea Quinn APRN MARKET RESEARCH SPECIALIST [address] [place] [address] Nurse Practitioner Dermatology 09/21/22 Brea Quinn APRN MARKET RESEARCH SPECIALIST [address] [place] [address] Assigned Surgical Provider 10/09/22 05/01/24 [place] [address] RA[address] [place] [address] Assigned Musculoskeletal Provider 10/09/22 05/01/24 Livan Sharif MD [address] [facility] [address] [place] [address] Assigned Heart and Vascular Provider 11/06/22 11/12/22 Catherine Cm MD [address] [place] [address] Assigned Heart and Vascular Provider 11/13/22 05/27/23 Sydnie Martinez RN Personal Advocate & Liaison (PAL) Family Medicine 03/28/23 07/31/23 Alfonso Renteria MD [address] [facility] 200 [place] [address] Assigned Neuroscience Provider 04/02/23 09/29/24 Cheng Todd PA-C [address] [place] [address] [phone] Assigned PCP 04/30/23 07/15/23 Radha Lomeli APRN MARKET RESEARCH SPECIALIST [address] [place] [address] Assigned Heart and Vascular Provider 05/28/23 Jelena David OD [address] [facility] [address] Ophthalmology 06/15/23 Pao Joseph RN Personal Advocate & Liaison (PAL) Nurse 08/01/23 11/07/23 Esha Grimm PA-C [address] [place] [phone] Assigned PCP 07/16/23 Valery Veronica PA-C [address]09 [place], [place] 8260[address] Physician Gravity Prospecting Supervisor Dermatology 09/19/23 Rey Tay MD [address] [place] [address] MD Gastroenterology 09/20/23 Rocky Zepeda DO [address] [place] [address] Physician Gastroenterology 09/20/23 Philip Dumont MD [address] [place] [address] Physician Ophthalmology 09/22/23 Meredith Carrera PA-C [address] [place] [address] Assigned Gastroenterology Provider 11/01/23 Neil Kent MD [address] [address] MD Dermatology 11/02/23 [place] [address] [address] Neurological Surgery 12/26/23 Audrey Waite PA-C [address] [place] [address] Physician Gravity Prospecting Supervisor Dermatology 02/28/24 Valery Veronica PA-C 709271 [address] [place] [address] Physician Gravity Prospecting Supervisor Dermatology 04/10/24 Herminia Hatch MD [address] [place] [address] [phone] Assigned Rheumatology Provider 07/02/24 Jelena David OD [address] [facility] [place] [address] Ophthalmology 08/30/24 [place] [address] [place] [address] Assigned Neuroscience Provider 09/30/24 Maru Man PA-C [address] [place] [address] Physician Gravity Prospecting Supervisor Dermatology 10/03/24 documented as of this encounter
--- OUTSIDE RECORDS SUMMARY | 2024-10-18 19:20 | XMS_ITS | Encounter Summary ---
Author Organization [facility] Address [address] [place] [address] Care Team Providers Care Gutter Installer Name Role Phone Lita Oseguera Unavailable Unavailable Marija Edgar APRN WARP CLAMPER Primary Care Provider + Chanelle Mccann APRN CNM Unavailab le Kyara De La Fuente RN Unavailable [phone] Marija Edgar APRN WARP CLAMPER Unavailable Mynor Broussard MD Unavailable [phone] Keisha Dotson MD Unavailable [phone] Stacey Briones CHARGING CAR OPERATOR Unavailable Lesley Guillermo CHW Unavailable Mary Mejia Unavailable Unavailable Lita Oseguera Unavailable Unavailable Galo Burrell MD Unavailable Unavailable Cristina Wood Unavailable Lesley Guillermo CHW Unavailable Meredith Bedoya Unavailable Unavailable Cristina Wood Unavailable Diana Desir [facility] Unavailable [phone] Rain Galaviz PA-C Unavailable [phone] Summer Lara MD Unavailable [phone] Summer Lara MD Unavailable [phone] Summer Lara MD Unavailable [phone] Tavia Wyatt MD Unavailable [phone] Johnny Murillo MD Unavailable [phone] Erica Farrell CONSUMER RELATIONS COMPLAINT CLERK WARP CLAMPER Unavailable Vikas Teresitakaren Watson [facility] Unavailable Tavia Wyatt MD Unavailable [phone] Diana Desir [facility] Unavailable [phone] Rich Barrett MD Unavailable Neil Kent MD Unavailable Roney StoryM Unavailable Erica Farrell CONSUMER RELATIONS COMPLAINT CLERK WARP CLAMPER Unavailable Diana Desir [facility] Unavailable [phone] Jelena David OD Unavailable Galo Burrell MD Unavailable Unavailable Livan Sharif MD Unavailable Livan Sharif MD Unavailable Catherine Cm MD Unavailable + Valery Veronica PA-C Unavailable [phone] Catherine Cm MD Unavailable + Johnny Murillo MD Unavailable [phone] Brea Quinn APRN WARP CLAMPER Unavailable [phone] Brea Quinn APRN WARP CLAMPER Unavailable [phone] Jose Francisco Johnson MD Unavailable Livan Sharif MD Unavailable + Catherine Cm MD Unavailable + Sydnie Martinez RN Unavailable Unavailable Alfonso Renteria MD Unavailable [phone] Esha Grimm PA-C Primary Care Provider [phone] Cheng Todd PA-C Unavailable Radha Lomeli APRN WARP CLAMPER Unavailable Jelena David OD Unavailable Pao Joseph RN Unavailable Unavailable Esha Grimm PA-C Unavailable [phone] Valery Veronica PA-C Unavailable Rey Tay MD Unavailable Rocky Zepeda DO Unavailable Philip Dumont MD Unavailable Meredith Carrera PA-C Unavailable Neil Kent MD Unavailable Juan Pablo Emmanuel MD Unavailable Audrey Waite PA-C Unavailable Valery Veronica PA-C Unavailable Herminia Hatch MD Unavailable Jelena David OD Unavailable Juan Pablo Emmanuel MD Unavailable [phone] Maru Man PA-C Unavailable Reason for Visit * Reason Onset Date Comments MyChart Communication 09/02/2020 Encounter Details Date Type Department Care Team (Latest Contact Info) Description 09/02/2020 [facility] [address] [phone] Marija Edgar APRN WARP CLAMPER [address] [facility] [place] [phone] MyChart Communication Social History Tobacco Use Types [...] Recorded PHQ-2 Score 0 08/12/2020 [facility] critical access hospital[facility] - Occupational Stress Questionnaire Answer Date Recorded [...] PM CDT Legal Sex Female 4:13 AM TILE SORTER Gender Identity Female 03/02/2021 5:45 PM CDT Sexual Orientation Straight 02/28/2020 12 :51 AM CDT COVID-19 Exposure Response Date Recorded In the last month, have you been in contact with someone who was confirmed or suspected to have Coronavirus / COVID-19? No / Unsure 09/05/2020 2:50 PM TILE SORTER documented as of this encounter Miscellaneous Notes * Telephone Encounter - Ever Cardozo MA - 09/03/2020 10:34 AM CST Responded to patient as below. Ever Cardozo MULTIMEDIA PROGRAMMER (AAMA) SORTER documented in this encounter Plan of Treatment Upcoming Encounters Date Type Department Care Team (Late st Contact Info) Description 10/22/2024 11:00 AM CDT Office Visit [address] [phone] Maru Man PA-C [address] [place] [address]98120 10/23/2024 PRE VISIT [facility] [address] [phone] Johnny Penn MD [address] [place], [place] [address] Previsit 10/23/2024 9:30 AM CDT Office Visit [facility] - [address] [phone] [place] [address] [place] [address] [place] [address] IsamarJohnny mead MD [address] [place] [address] 10/24/2024 4:00 PM CDT Office Visit [facility] [address] [facility] [facility] [address] [place] [phone] Jelena David, SONJA [address] [facility] [place] [address] 10/31/2024 9:15 AM CDT Virtual Visit [facility] [address] 4th [place] [phone] Meredith Carrera PA-C [address] [place] [address] 12/20/2024 2:30 PM CDT Office Visit [facility] [address] [place] [phone] Esha Grimm PA-C [address] [place] [address] documented as of this encounter Visit Diagnoses Not on filedocumented in this encounter Additional Health Concerns Infection Onset Date Last Indicated Resolved Time Rule Out COVID-19 09/24/2020 09/24/2020 09/24/2020 9:24 AM CDT Rule Out COVID-19 11/05/2020 11/05/2020 11/06/2020 1:09 PM CDT Rule Out COVID-19 05/11/2021 05/11/2021 05/13/2021 10:18 AM CDT Rule Out COVID-19 07/13/2021 07/13/2021 07/14/2021 3:04 PM TILE SORTER Rule Out COVID-19 07/18/2021 07/18/2021 07/20/2021 1:56 PM TILE SORTER COVID-19 07/18/2021 07/18/2021 08/08/2021 11:3 9 PM TILE SORTER Rule Out COVID-19 12/18/2021 12/18/2021 12/19/2021 11:34 AM CDT Rule Out COVID-19 02/24/2022 02/24/2022 02/25/2022 1:08 PM CDT Rule Out COVID-19 04/26/2022 04/26/2022 04/26/2022 6:47 AM CDT Rule Out COVID-19 05/17/2022 05/17/2022 05/17/2022 10:20 PM TILE SORTER Rule Out COVID-19 06/09/2022 06/09/2022 06/09/2022 9:35 AM TILE SORTER COVID-19 06/09/2022 06/09/2022 06/30/2022 11:4 1 PM TILE SORTER Rule Out COVID-19 11/10/2022 11/10/2022 11/11/2022 12:17 PM CDT Rule Out COVID-19 03/07/2023 03/07/2023 03/07/2023 1:20 PM CDT Rule Out COVID-19 12/26/2023 12/26/2023 12/26/2023 9:50 AM CDT Rule Out COVID-19 04/09/2024 04/09/2024 04/10/2024 6:48 PM CDT Rule Out COVID-19 10/04/2024 10/04/2024 10/05/2024 9:42 AM CDT Assessment Noted Time PHQ-9 Depression Total Score: 9 06/25/20 20 7:04 AM TILE SORTER documented as of this encounter Care Teams Gutter Installer Relationship Specialty Start Date End Date Marija Edgar APRN CNP PCP - General Nurse Practitioner 04/30/20 04/14/23 Esha Grimm PA-C [address] [place] [address] PCP - General Family Medicine 05/04/23 Lita Oseguera Personal Advocate & Liaison (PAL) 02/28/20 03/27/23 Chanelle Mccann APRN CNM [address] [facility] [address] [place] [address] Assigned OBGYN Provider 05/02/2005/09 Kyara De La Fuente, RN Specialty Butcher [place] Neurology 06/04/20 03/05/21 Marija Edgar APRN WARP CLAMPER Assigned PCP 06/08/20 04/29/23 Mynor Broussard MD [address] [facility] [address] [place], [place] [address] Assigned Surgical Provider 06/01/20 11/28/21 Keisha Dotson MD 9 [place], [place] [phone] Assigned Neuroscience Provider 06/04/20 04/01/23 Stacey Briones, [facility] Lead Butcher [place] Primary Care - CC 08/11/2012/30 Lesley Guillermo, W Community Health Worker 08/11/2010/01 Mary Mejia Financial Resource Worker 09/02/20 10/06/20 Lita Oseguera Personal Advocate & Liaison (PAL) Family Medicine 09/10/20 09/21/20 Galo Burrell MD Assigned Heart and Vascular Provider 10/05/20 04/02/22 Cristina Wood Financial Resource Worker 10/07/20 10/14/20 Lesley Guillermo, [facility] Community Health Worker 10/23/2012/30 Meredith Bedoya Financial Resource Worker 10/23/20 11/23/20 Cristina Wood Financial Resource Worker 02/09/21 02/09/21 Diana Desir, [facility] [address] [place] [address] Pharmacist Pharmacist 04/17/21 Rain Galaviz PA-C [address] [place] [address] [address] [place], [place] [phone] Physician Drum Saw Operator Dermatology 04/28/21 Summer Lara MD [address] [place] [address] [phone] Assigned OBGYN Provider 05/10/2105/23 Summer Lara MD [address] [place] [address] [phone] Assigned OBGYN Provider 05/31/21 2 Summer Lara MD [address] [place] [address] [phone] Assigned OBGYN Provider 05/24/2105/30 Tavia Wyatt MD [address] [place] [address] [phone] Dermatology 07/14/21 Johnny Murillo MD [address] [facility] [address] [place], [place] [address] Assigned Musculoskeletal Provider 08/30/21 03/17/22 Erica Farrell APRN WARP CLAMPER [address] [facility] [address] [place] [address] Nurse Practitioner Cardiovascular Disease 09/09/21 Teresita Bean, [facility] [address] [place] [phone] Pharmacist Pharmacist 09/24/21 09/29/21 Tavia Wyatt MD [address] [place], [place] 133280 Assigned Surgical Provider 11/29/21 05/07/22 [facility] [address] [place] [address] Assigned MTM Pharmacist 01/02/22 Rich Barrett MD [facility] [place] [address] Physician Ophthalmology 01/21/22 Neil Kent MD [address] [place] [address] Dermatology 02/24/22 Roney Story DPM [address] [facility] [address] [place], [place] [address] Assigned Musculoskeletal Provider 03/20/22 08/13/22 Erica Farrell APRN WARP CLAMPER [address] [place] [address] Assigned Heart and Vascular Provider 04/03/22 04/16/22 Diana Desir, [facility] [address] [place], [place] [address]246 Assigned MTM Pharmacist 04/07/22 Frankie Jelenamao Garcia [place] [address] [facility] [address] Assigned Surgical Provider 05/08/22 10/08/22 Galo Burrell MD Assigned Heart and Vascular Provider 04/17/22 06/11/22 Livan Sharif MD [address] [place] [phone] Cardiovascular Disease 05/14/22 Livan Sharif MD [address] [place] [address] Assigned Heart and Vascular Provider 06/12/22 07/23/22 Catherine Cm MD [address] [place], [place] [phone] Cardiovascular Disease 07/21/22 Valery Veronica PAUcheC [address] [place] [address] Physician Drum Saw Operator Dermatology 07/21/22 Catherine Cm MD [address] [place] [address]45 Assigned Heart and Vascular Provider 07/24/22 11/05/22 Johnny Murillo MD [address] [facility] [address] [place] [address] Assigned Musculoskeletal Provider 08/14/22 10/08/22 Brea Quinn APRN WARP CLAMPER [address] [facility] [place] [address] Nurse Practitioner Dermatology 09/21/22 Brea Quinn APRN WARP CLAMPER [address] [facility] [place] 368912 Assigned Surgical Provider 10/09/22 05/01/24 [place] [address] [facility] [facility] [address] [place], [place] [address]37 Assigned Musculoskeletal Provider 10/09/22 05/01/24 Livan Sharif MD [address] [facility] [address] [place] [address] Assigned Heart and Vascular Provider 11/06/22 11/12/22 Catherine Cm MD [address] [facility] [address] [place] [address] Assigned Heart and Vascular Provider 11/13/22 05/27/23 Sydnie Martinez RN Personal Advocate & Liaison (PAL) Family Medicine 03/28/23 07/31/23 Alfonso Renteria MD [address] [facility] 200 [place] [address] Assigned Neuroscience Provider 04/02/23 09/29/24 Cheng Todd PA-C [address] [place] [address] Assigned PCP 04/30/23 07/15/23 Radha Lomeli APRN WARP CLAMPER [address] [facility] [address] [place] [address] Assigned Heart and Vascular Provider 05/28/23 Jelena David [place] [address] [facility] [address] MD Ophthalmology 06/15/23 Pao Joseph, VJ Personal Advocate & Liaison (PAL) Nurse 08/01/23 11/07/23 Esha Grimm PA-C [address] [place] [phone] Assigned PCP 07/16/23 Valery Veronica PA-C [address] [place] [address] [phone] Physician Drum Saw Operator Dermatology 09/19/23 Rey Tay MD [address] [place] [address] [phone] Gastroenterology 09/20/23 Rocky Zepeda DO [address] [place] [address] [phone] Physician Gastroenterology 09/20/23 Philip Dumont MD [address] [place] [address] [phone] Physician Ophthalmology 09/22/23 Meredith [place] PA-C [address] [place] [address] Assigned Gastroenterology Provider 11/01/23 Neil Kent MD [address] [place] [address] Dermatology 11/02/23 [place] [address] [place] [address] Neurological Surgery 12/26/23 Audrey Waite PA-C [address] [place] [address] Physician Drum Saw Operator Dermatology 02/28/24 Valery Veronica PA-C [address]112 [address] [place] [address] Physician Drum Saw Operator Dermatology 04/10/24 Herminia Hatch MD [address] [place] [address] [phone] Assigned Rheumatology Provider 07/02/24 Jelena David OD [address] [place] [address] [place] [address] Ophthalmology 08/30/24 [place] [address] [place] [address] Assigned Neuroscience Provider 09/30/24 Maru Man PA-C [address] [place] [address] Physician Drum Saw Operator Dermatology 10/03/24 documented as of this encounter
--- OUTSIDE RECORDS SUMMARY | 2024-10-18 19:20 | XMS_ITS | Encounter Summary ---
Author Organization [facility] Address [address] [place] [address] 21485 Care Team Providers Care Automatic Silk Screen Printer Name Role Phone Lita Oseguera Unavailable Unavailable Marija Edgar APRN MARKETING BUDGET ANALYST Primary Care Provider + Marija Edgar APRN MARKETING BUDGET ANALYST Unavailable Keisha Dotson MD Unavailable [phone] Galo Burrell MD Unavailable Unavailable Diana Desir [facility] Unavailable [phone] Rain Galaviz PA-C Unavailable Summer Lara MD Unavailable [phone] Tavia Wyatt MD Unavailable Johnny Murillo MD Unavailable Erica Farrell APRN MARKETING BUDGET ANALYST Unavailable Tavia Wyatt MD Unavailable Diana Desir [facility] Unavailable Rich Barrett MD Unavailable [phone] Neil Kent MD Unavailable Roney Story DPM Unavailable Erica Farrell APRN MARKETING BUDGET ANALYST Unavailable Diana Desir [facility] Unavailable [phone] Jelena David OD Unavailable [phone] Galo Burrell MD Unavailable Unavailable HoLivan MD Unavailable Livan Sharif MD Unavailable IsCatherine hobbs MD Unavailable + Valery Veronica PA-C Unavailable [phone] Catherine Cm MD Unavailable + Johnny Murillo MD Unavailable [phone] Brea Quinn SUPPOSITORY MOLDING MACHINE OPERATOR MARKETING BUDGET ANALYST Unavailable [phone] Brea Quinn SUPPOSITORY MOLDING MACHINE OPERATOR MARKETING BUDGET ANALYST Unavailable [phone] Jose Francisco Johnson MD Unavailable Livan Sharif MD Unavailable + IsCatherine boothe MD Unavailable + Sydnie Martinez RN Unavailable Unavailable Alfonso Renteria MD Unavailable Esha Grimm PA-C Primary Care Provider Cheng Todd PA-C Unavailable Radha Lomeli SUPPOSITORY MOLDING MACHINE OPERATOR MARKETING BUDGET ANALYST Unavailable [phone] Jelena David OD Unavailable Pao Joseph RN Unavailable Unavailable Esha Grimm PA-C Unavailable [phone] Valery Veronica PA-C Unavailable [phone] Rey Tay MD Unavailable Rocky Zepeda DO Unavailable Philip Dumont MD Unavailable [phone] Meredith Carrera PA-C Unavailable [phone] Neil Kent MD Unavailable Juan Pablo Emmanuel MD Unavailable [phone] Audrey Waite PA-C Unavailable [phone] Valery Veronica PA-C Unavailable [phone] Herminia Hatch MD Unavailable Jelena David OD Unavailable [phone] Juan Pablo Emmanuel MD Unavailable [phone] Maru Man PA-C Unavailable [phone] Encounter Details Date Type Department Care Team (Late st Contact Info) Description 12/03/2021 MyC Medical Advice [address] [address] Debbie Hdez MA Social History [...] How often do you attend zoroastrianism or christianity serv ices? Never 09/22/2021 Do [...] Answer Date Recorded PHQ-2 Score 2 09/22/2021 [facility]at ional [...] a long term (including now)? No 09/22/2021 Hammond Depression Scale Answer Date Recorded Hammond Depression Score 5 01/14/2021 Last EPDS Self Harm Result Not on file 01/14 Education Answer Date Recorded What is the highest level of school you have completed or the highest degree you have received? 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 SKEIN WINDING OPERATOR Gender Identity Female 03/02/2021 5:45 PM [...] Description 10/22/2024 11:00 AM CDT Office Visit [address] [phone] Maru Man PA-C [address] [phone] 10/23/2024 PRE VISIT [facility] Neurology [facility] [address], [address] [place] [address] Johnny Penn MD [address] [place] [address] Previsit 10/23/2024 9:30 AM CDT Office Visit [facility] Neurology [facility] [address] [facility], [address] [place] [phone] [place] [address] [place] [address] Johnny Penn MD 6545 [facility] [place] 54[address] 10/24/2024 4:00 PM CDT Office Visit [facility] [address] [facility] [address] [place] [phone] Jelena David, 3[address] [facility] [place] [address] 10/31/2024 9:15 AM CDT Virtual Visit [facility] G[facility] [address] [phone] Meredith Carrera PA-C [address] [place] [address] 12/20/2024 2:30 PM CDT Office Visit [facility] [address] [place] [phone] Esha Grimm PA-C [address] [place] [address] documented as of this encounter Visit Diagnoses Not on filedocumented in this encounter Additional Health Concerns Infection Onset Date Last Indicated Resolved Time Rule Out COVID-19 12/18/2021 12/18/2021 12/19/2021 11:34 AM CDT Rule Out COVID-19 02/24/2022 02/24/2022 02/25/2022 1:08 PM CDT Rule Out COVID-19 04/26/2022 04/26/2022 04/26/2022 6:47 AM CDT Rule Out COVID-19 05/17/2022 05/17/2022 05/17/2022 10:20 PM SKEIN WINDING OPERATOR Rule Out COVID-19 06/09/2022 06/09/2022 06/09/2022 9:35 AM SKEIN WINDING OPERATOR COVID-19 06/09/2022 06/09/2022 06/30/2022 11:4 1 PM SKEIN WINDING OPERATOR Rule Out COVID-19 11/10/2022 11/10/2022 11/11/2022 [...] as of this encounter Care Teams Automatic Silk Screen Printer Relationship Specialty Start Date End Date Marija Edgar APRN MARKETING BUDGET ANALYST PCP - General Nurse Practitioner 04/30/20 04/14/23 Esha Grimm PA-C [address] [place] [address]307[address] PCP - General Family Medicine 05/04/23 Lita Oseguera Personal Advocate & Liaison (PAL) 02/28/20 03/27/23 Marija Edgar APRN MARKETING BUDGET ANALYST Assigned PCP 06/08/20 04/29/23 Keisha Dotson MD [address] [place] [address] Assigned Neuroscience Provider 06/04/20 04/01/23 Galo Burrell MD Assigned Heart and Vascular Provider 10/05/20 04/02/22 [facility] [address] [place] [address] Pharmacist Pharmacist 04/17/21 Rain Galaviz PA-C [address] [place] [address] [address] [place], [place] [phone] Physician Dock Attendant Dermatology 04/28/21 Summer Lara MD [address] [place] [address] 950024 Assigned OBGYN Provider 05/31/21 2 Tavia Wyatt MD [address] [place] [address] 064884 Dermatology 07/14/21 Johnny Murillo MD [address] [id number] [place], [place] [address]294 Assigned Musculoskeletal Provider 08/30/21 03/17/22 Erica Farrell APRN MARKETING BUDGET ANALYST 6405 [facility] [address] [place], [place] 645085 Nurse Practitioner Cardiovascular Disease 09/09/21 Tavia Wyatt MD [address] [place] [address] Assigned Surgical Provider 11/29/21 05/07/22 Diana Desir, [facility] 3033 [place] [address] Assigned MTM Pharmacist 01/02/22 Rich Barrett MD [address] [place] [address] Physician Ophthalmology 01/21/22 Neil Kent MD 500 [place] [address] Dermatology 02/24/22 [place] [address] [facility] [address] [place] [address] Assigned Musculoskeletal Provider 03/20/22 08/13/22 Erica Farrell APRN MARKETING BUDGET ANALYST 1700 [place] [address] Assigned Heart and Vascular Provider 04/03/22 04/16/22 Diana Desir, [facility] [address] [place] [address] Assigned MTM Pharmacist 04/07/22 [place] [address] [place] [address] [place] [address] Assigned Surgical Provider 05/08/22 10/08/22 Galo Burrell MD Assigned Heart and Vascular Provider 04/17/22 06/11/22 Livan Sharif MD [address] [facility] [address] [place] 551735 Cardiovascular Disease 05/14/22 Livan Sharif MD [address] [facility] [address] [place] 752625 Assigned Heart and Vascular Provider 06/12/22 07/23/22 Catherine Cm MD [address] 2636700 [place] 944705 Cardiovascular Disease 07/21/22 Valery Veronica, PA-C [address] [address] 863445 Physician Dock Attendant Dermatology 07/21/22 Catherine Cm MD [address] [phone] [place] 407075 Assigned Heart and Vascular Provider 07/24/22 11/05/22 Johnny Murillo MD [address] [place] [address] Assigned Musculoskeletal Provider 08/14/22 10/08/22 Brea Quinn APRN MARKETING BUDGET ANALYST [address] [place] [address] 608695 Nurse Practitioner Dermatology 09/21/22 Brea Quinn APRN MARKETING BUDGET ANALYST [address] [place] [address] [place] [address] Assigned Surgical Provider 10/09/22 05/01/24 [place] [address] [place] [address] Assigned Musculoskeletal Provider 10/09/22 05/01/24 Livan Sharif MD [address] [facility] [address] [place] [address] Assigned Heart and Vascular Provider 11/06/22 11/12/22 Catherine Cm MD [address] [facility]00 [place] [address] Assigned Heart and Vascular Provider 11/13/22 05/27/23 Sydnie Martinez RN Personal Advocate & Liaison (PAL) Family Medicine 03/28/23 07/31/23 Alfonso Renteria MD 5775 [facility] 200 [place] [address] Assigned Neuroscience Provider 04/02/23 09/29/24 Cheng Todd PA-C [address] [place] [address] Assigned PCP 04/30/23 07/15/23 Radha Lomeli APRN MARKETING BUDGET ANALYST [address] [place] [address] Assigned Heart and Vascular Provider 05/28/23 Jelena David OD [address] [facility] [place] [address] MD Ophthalmology 06/15/23 Pao Joseph, RN Personal Advocate & Liaison (PAL) Nurse 08/01/23 11/07/23 Esha Grimm PA-C [address] [place] [address] Assigned PCP 07/16/23 Valery Veronica PA-C [address] [place] [address] Physician Dock Attendant Dermatology 09/19/23 Rey Tay MD [address] [place] [address] MD Gastroenterology 09/20/23 Rocky Zepeda DO [address] [place] [address] 137115 Physician Gastroenterology 09/20/23 Philip Dumont MD [address] [place] [address] [phone] Physician Ophthalmology 09/22/23 Meredith Carrera PA-C [address] [place] [address] 907005 Assigned Gastroenterology Provider 11/01/23 Neli Kent MD [address] [place] [address] 724230 Dermatology 11/02/23 [place] [address] [place] [address] Neurological Surgery 12/26/23 Audrey Waite PA-C 500 [place] [address] Physician Dock Attendant Dermatology 02/28/24 Valery Veronica PA-C [id number] [place] [address] Physician Dock Attendant Dermatology 04/10/24 Herminia Hatch MD [facility]5 [place], [place] 69271125 Assigned Rheumatology Provider 07/02/24 Jelena David OD [address] [facility] [place] [address] Ophthalmology 08/30/24 [place] [address] [place], [place] 402237 Assigned Neuroscience Provider 09/30/24 Maru Man PA-C [address] [address] Physician Dock Attendant Dermatology 10/03/24 documented as of this encounter
--- OUTSIDE RECORDS SUMMARY | 2024-10-18 19:20 | XMS_ITS | Encounter Summary ---
Author Organization [facility] Address [address] [place] [address] Care Team Providers Care Gasoline Dragline Operator Name Role Phone Lita Oseguera Unavailable Unavailable Marija Edgar APRN INTELLIGENCE OPERATIONS Primary Care Provider + Marija Edgar APRN INTELLIGENCE OPERATIONS Unavailable Keisha Dotson MD Unavailable Galo Burrell MD Unavailable Unavailable Diana Desir [facility] Unavailable Rain Galaviz PA-C Unavailable Summer Lara MD Unavailable [phone] Tavia Wyatt MD Unavailable Johnny Murillo MD Unavailable Erica Farrell APRN INTELLIGENCE OPERATIONS Unavailable Tavia Wyatt MD Unavailable Diana Desir [facility] Unavailable Rich Barrett MD Unavailable [phone] Neil Kent MD Unavailable Roney Story DPM Unavailable Erica Farrell APRN INTELLIGENCE OPERATIONS Unavailable Diana Desir [facility] Unavailable [phone] Jelena David OD Unavailable [phone] Galo Burrell MD Unavailable Unavailable HoLivan MD Unavailable Livan Sharif MD Unavailable IsCatherine hobbs MD Unavailable + Valery Veronica PA-C Unavailable [phone] Catherine Cm MD Unavailable + Johnny Murillo MD Unavailable [phone] Brea Quinn INTELLIGENCE OPERATIONS INTELLIGENCE OPERATIONS Unavailable [phone] Brea Quinn INTELLIGENCE OPERATIONS INTELLIGENCE OPERATIONS Unavailable [phone] Jose Francisco Johnson MD Unavailable Livan Sharif MD Unavailable + IsCatherine boothe MD Unavailable + Sydnie Martinez RN Unavailable Unavailable Alfonso Renteria MD Unavailable Esha Grimm PA-C Primary Care Provider Cheng Todd PA-C Unavailable Radha Lomeli INTELLIGENCE OPERATIONS INTELLIGENCE OPERATIONS Unavailable [phone] Jelena David OD Unavailable Pao Joseph RN Unavailable Unavailable Esha Grimm PA-C Unavailable [phone] Valery Veronica PA-C Unavailable [phone] Rey Tay MD Unavailable Rocky Zepeda DO Unavailable Philip Dumont MD Unavailable [phone] Meredith Carrera PA-C Unavailable Neil Kent MD Unavailable Juan Pablo Emmanuel MD Unavailable [phone] Audrey Waite PA-C Unavailable [phone] Valery Veronica PA-C Unavailable [phone] Herminia Hatch MD Unavailable Jelena David OD Unavailable Juan Pablo Emmanuel MD Unavailable [phone] Maru Man PA-C Unavailable [phone] Encounter Details Date Type Department Care Team (Late st Contact Info) Description 03/09/2022 MyC Medical Advice [address] [address] Abby Dye Social History Tobacco [...] How often do you attend anabaptist or sabianism serv ices? Never 09/22/2021 Do [...] Answer Date Recorded PHQ-2 Score 2 12/18/2021 [facility] - [...] medical appointments or from getting medications? No 03/1 11/2021 In the past 12 months, has l [...] a senior care (including now)? No 09/22/2021 Rapelje Depression Scale Answer Date Recorded Rapelje Depression Score 5 01/14/2021 Last EPDS Self Harm Result Not on file 01/14 Education Answer Date Recorded What is the highest level of school you have completed or the highest degree you have received? 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 SYSTEM ARCHIVE ANALYST Gender Identity Female 03/02/2021 5:45 PM [...] Description 10/22/2024 11:00 AM CDT Office Visit [address] [phone] Maru Man PA-C [address] [place] [address] 070750 10/23/2024 PRE VISIT [facility] Neurology [facility] - [address], [address] [place] [address] Johnny Penn MD [address] [place] [address] Previsit 10/23/2024 9:30 AM CDT Office Visit [facility] Neurology [facility] 65[address] [facility], [address] [place] [phone] [place] [address] [place] [address] Johnny Penn MD [address] [place] 973895 10/24/2024 4:00 PM CDT Office Visit [facility] [address] [facility] [address] [place] [phone] Jelena David, [address] [facility] [place] [address] 10/31/2024 9:15 AM CDT Virtual Visit [facility] Gastroenterology Clinic [address] [phone] Meredith Carrera PA-C [address] [place] [address] 085335 12/20/2024 2:30 PM CDT Office Visit [facility] [address] [place] [phone] Esha Grimm PA-C [address] [place] [address] documented as of this encounter Visit Diagnoses Not on filedocumented in this encounter Additional Health Concerns Infection Onset Date Last Indicated Resolved Time Rule Out COVID-19 04/26/2022 04/26/2022 04/26/2022 6:47 AM CDT Rule Out COVID-19 05/17/2022 05/17/2022 05/17/2022 10:20 PM SYSTEM ARCHIVE ANALYST Rule Out COVID-19 06/09/2022 06/09/2022 06/09/2022 9:35 AM SYSTEM ARCHIVE ANALYST COVID-19 06/09/2022 06/09/2022 06/30/2022 11:4 1 PM SYSTEM ARCHIVE ANALYST Rule Out COVID-19 11/10/2022 11/10/2022 11/11/2022 [...] documented as of this encounter Care Teams Gasoline Dragline Operator Relationship Specialty Start Date End Date Marija Edgar APRN INTELLIGENCE OPERATIONS PCP - General Nurse Practitioner 04/30/20 04/14/23 Esha Grimm PA-C [address] [place] [address] PCP - General Family Medicine 05/04/23 Lita Oseguera Personal Advocate & Liaison (PAL) 02/28/20 03/27/23 Marija Edgar APRN INTELLIGENCE OPERATIONS Assigned PCP 06/08/20 04/29/23 Keisha Dotson MD [address] [place] [address] Assigned Neuroscience Provider 06/04/20 04/01/23 Galo Burrell MD Assigned Heart and Vascular Provider 10/05/20 04/02/22 Diana Desir, [facility] [address] [place] [address] Pharmacist Pharmacist 04/17/21 Rain Galaviz PA-C [address] [place] [address] [place] [address] Physician Sueding Machine Operator Dermatology 04/28/21 Summer Lara MD [address] [place], [place] [address] [place] [address] Assigned OBGYN Provider 05/31/21 2 Tavia Wyatt MD [address] [place], [place] 937[address] Dermatology 07/14/21 Johnny Murillo MD [address] [place] [address] Assigned Musculoskeletal Provider 08/30/21 03/17/22 Erica Farrell APRN INTELLIGENCE OPERATIONS 6405 [facility] [address] [place], [place] 039015 Nurse Practitioner Cardiovascular Disease 09/09/21 Tavia Wyatt MD [address] [place], [place] 930390 Assigned Surgical Provider 11/29/21 05/07/22 Diana Desir, [facility] [address] [place] [address] Assigned MTM Pharmacist 01/02/22 Rich Barrett MD [address] [place] [address] Physician Ophthalmology 01/21/22 Neil Kent MD 500 [place], [place] 121685 Dermatology 02/24/22 [place]oney [place] D[place] [address] [employer] [address] [place] [address] Assigned Musculoskeletal Provider 03/20/22 08/13/22 Erica Farrell APRN INTELLIGENCE OPERATIONS 1700 [place] [address] Assigned Heart and Vascular Provider 04/03/22 04/16/22 Diana Desir, [facility] [address] [place] [address] Assigned MTM Pharmacist 04/07/22 Jelena David OD [address] [facility] [place] [address] Assigned Surgical Provider 05/08/22 10/08/22 Galo Burrell MD Assigned Heart and Vascular Provider 04/17/22 06/11/22 Livan Sharif MD 6405 [facility] [address] [place] 944875 Cardiovascular Disease 05/14/22 Livan Sharif MD 6405 [facility] [address] [place] [address] Assigned Heart and Vascular Provider 06/12/22 07/23/22 Catherine Cm MD [address] [facility] [address] [place] [address] Cardiovascular Disease 07/21/22 Valery Veronica, PA-C [address] [place] [address] Physician Sueding Machine Operator Dermatology 07/21/22 Catherine Cm MD [address] 6408500 [place] [address] Assigned Heart and Vascular Provider 07/24/22 11/05/22 Johnny Murillo MD [address] [place] [address] 230684 Assigned Musculoskeletal Provider 08/14/22 10/08/22 Brea Quinn APRN INTELLIGENCE OPERATIONS [address] [place] [address] Nurse Practitioner Dermatology 09/21/22 Brea Quinn APRN INTELLIGENCE OPERATIONS [address] [place] [address] [place] [address] Assigned Surgical Provider 10/09/22 05/01/24 [place] [address] [place] [address] [place] [address] Assigned Musculoskeletal Provider 10/09/22 05/01/24 Livan Sharif MD [address] [facility] [address] [place] [address] Assigned Heart and Vascular Provider 11/06/22 11/12/22 Catherine Cm MD [address] [facility] [address] [place] [address] Assigned Heart and Vascular Provider 11/13/22 05/27/23 Sydnie Martinez RN Personal Advocate & Liaison (PAL) Family Medicine 03/28/23 07/31/23 Alfonso Renteria MD 5775 [facility] 200 [place] [address] Assigned Neuroscience Provider 04/02/23 09/29/24 Cheng Todd PA-C [address] [place] [address] Assigned PCP 04/30/23 07/15/23 Radha Lomeli APRN INTELLIGENCE OPERATIONS [address] [place] [address] Assigned Heart and Vascular Provider 05/28/23 Jelena David OD [address] [place] [address] [place] [address] Ophthalmology 06/15/23 Poa Joseph, VJ Personal Advocate & Liaison (PAL) Nurse 08/01/23 11/07/23 Esha Grimm PA-C [address] [place] [address]83 Assigned PCP 07/16/23 Valery Veronica PA-C [address] [place] [address] 916825 Physician Sueding Machine Operator Dermatology 09/19/23 Rey Tay MD [address] [place] [address] MD Gastroenterology 09/20/23 Rocky Zepeda DO [address] [place] [address] 574895 Physician Gastroenterology 09/20/23 Philip Dumont MD [address] [place] [address] 121945 Physician Ophthalmology 09/22/23 Meredith Carrera PA-C [address] [place] [address] 157395 Assigned Gastroenterology Provider 11/01/23 Neil Kent MD [address] 309270 Dermatology 11/02/23 [place] [address] [place] [address] [place] 95[address] Neurological Surgery 12/26/23 Audrey Waite PA-C [address] [place] [address] 757205 Physician Sueding Machine Operator Dermatology 02/28/24 Valery Veronica PA-C [address] [facility] [place] [address] Physician Sueding Machine Operator Dermatology 04/10/24 Herminia Hatch MD [address]75 [place], [place] 03301125 Assigned Rheumatology Provider 07/02/24 Jelena David OD [address] [facility] [place] [address] Ophthalmology 08/30/24 [place] [address] [place] [address] Assigned Neuroscience Provider 09/30/24 Maru Man PA-C [address] [place] [address] Physician Sueding Machine Operator Dermatology 10/03/24 documented as of this encounter
--- OUTSIDE RECORDS SUMMARY | 2024-10-18 19:20 | XMS_ITS | Encounter Summary ---
Author Organization [facility] Address [address] [place] [address] Care Team Providers Care Drop Forge Operator Name Role Phone Lita Oseguera Unavailable Unavailable Marija Edgar APRN PIPELINER Primary Care Provider + Marija Edgar APRN PIPELINER Unavailable Keisha Dotson MD Unavailable Galo Burrell MD Unavailable Unavailable Diana Desir [facility] Unavailable Rain Galaviz PA-C Unavailable Summer Lara MD Unavailable [phone] Tavia Wyatt MD Unavailable Johnny Murillo MD Unavailable [phone] Erica Farrell APRN PIPELINER Unavailable Tavia Wyatt MD Unavailable Diana Desir [facility] Unavailable Rich Barrett MD Unavailable [phone] Neil Kent MD Unavailable Roney Story DPM Unavailable Erica Farrell APRN PIPELINER Unavailable Diana Desir [facility] Unavailable [phone] Jelena David OD Unavailable [phone] Galo Burrell MD Unavailable Unavailable HoLivan MD Unavailable Livan Sharif MD Unavailable IsCatherine hbobs MD Unavailable + Valery Veronica PA-C Unavailable [phone] Catherine Cm MD Unavailable + Johnny Murillo MD Unavailable [phone] Brea Quinn HAIRSPRING ADJUSTER PIPELINER Unavailable [phone] Brea Quinn HAIRSPRING ADJUSTER PIPELINER Unavailable [phone] Jose Francisco Johnson MD Unavailable Livan Sharif MD Unavailable + IsCatherine boothe MD Unavailable + Sydnie Martinez RN Unavailable Unavailable Alfonso Renteria MD Unavailable sEha Grimm PA-C Primary Care Provider Cheng Todd PA-C Unavailable Radha Lomeli HAIRSPRING ADJUSTER PIPELINER Unavailable [phone] Jelena David OD Unavailable Pao Joseph RN Unavailable Unavailable Esha Grimm PA-C Unavailable [phone] Valery Veronica PA-C Unavailable [phone] Rey Tay MD Unavailable Rocky Zepeda DO Unavailable Philip Dumont MD Unavailable [phone] Meredith Carrera PA-C Unavailable Neil Kent MD Unavailable Juan Pablo Emmanuel MD Unavailable [phone] Audrey Waite PA-C Unavailable [phone] Valery Veronica PA-C Unavailable [phone] Herminia Hatch MD Unavailable Jelena David OD Unavailable Juan Pablo Emmanuel MD Unavailable [phone] Maru Man PA-C Unavailable [phone] Encounter Details Date Type Department Care Team (Late st Contact Info) Description 01/22/2022 MyC Medical Advice [address] [address] [facility] [address] [place] [address] Social History Tobacco Use Types Packs/Day Years [...] How often do you attend alevism or gnosticist serv ices? Never 09/22/2021 Do [...] Date Recorded PHQ-2 Score 2 12/18/2021 [facility] [...] in a half-way (including now)? No 09/22/2021 [place] Depression Scale Answer Date Recorded [place] Depression Score 5 01/14/2021 Last EPDS Self Harm Result Not on file 01/14 Education Answer Date Recorded What is the highest level of school you have completed or the highest degree you have received? 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 RAILCAR MECHANIC Gender Identity Female 03/02/2021 5:45 PM [...] Description 10/22/2024 11:00 AM CDT Office Visit [facility] [address] [phone] Maru Man PA-C [address] [address] 10/23/[address] [facility] - [address], [address] [place] [phone] Johnny Penn MD [address] [place] [address] Previsit 10/23/2024 9:30 AM CDT Office Visit [facility] [place] [address] [facility], [address] [place] [phone] [place] [address] [place] [address] Johnny Penn MD [address] [place] [address] 10/24/2024 4:00 PM CDT Office Visit [facility] [address] [facility] [address] [place] [phone] Jelena David, [place] [address] [facility] [place] [address] 10/31/2024 9:15 AM CDT Virtual Visit [facility] [address] 4th [place] [phone] Meredith Carrera PA-C [address] [place] [address] 12/20/2024 2:30 PM CDT Office Visit [facility] [address] [place] [phone] Esha Grimm PA-C [address] [place] [phone] documented as of this encounter Visit Diagnoses Not on filedocumented in this encounter Additional Health Concerns Infection Onset Date Last Indicated Resolved Time Rule Out COVID-19 02/24/2022 02/24/2022 02/25/2022 1:08 PM CDT Rule Out COVID-19 04/26/2022 04/26/2022 04/26/2022 6:47 AM CDT Rule Out COVID-19 05/17/2022 05/17/2022 05/17/2022 10:20 PM RAILCAR MECHANIC Rule Out COVID-19 06/09/2022 06/09/2022 06/09/2022 9:35 AM RAILCAR MECHANIC COVID-19 06/09/2022 06/09/2022 06/30/2022 11:4 1 PM RAILCAR MECHANIC Rule Out COVID-19 11/10/2022 11/10/2022 11/11/2022 [...] as of this encounter Care Teams Drop Forge Operator Relationship Specialty Start Date End Date Marija Edgar APRN PIPELINER PCP - General Nurse Practitioner 04/30/20 04/14/23 Esha Grimm PA-C [address] [place] [phone] PCP - General Family Medicine 05/04/23 Lita Oseguera Personal Advocate & Liaison (PAL) 02/28/20 03/27/23 Marija Edgar APRN PIPELINER Assigned PCP 06/08/20 04/29/23 Keisha Dotson MD [address] [place] [address] Assigned Neuroscience Provider 06/04/20 04/01/23 Galo Burrell MD Assigned Heart and Vascular Provider 10/05/20 04/02/22 [facility] [address] [place] [address] Pharmacist Pharmacist 04/17/21 Rain Galaviz PA-C [address] [facility] [place] [address] Physician Home Care Giver Dermatology 04/28/21 Summer Lara MD [address] [place] [address] 052124 Assigned OBGYN Provider 05/31/21 2 Tavia Wyatt MD [address] [place] [address] [phone] Dermatology 07/14/21 Johnny Murillo MD [address] [facility] [address] [place] [address] Assigned Musculoskeletal Provider 08/30/21 03/17/22 Erica Farrell APRN PIPELINER [address] [facility] [address] [place] [address] Nurse Practitioner Cardiovascular Disease 09/09/21 Tavia Wyatt MD [address] [place] [address] Assigned Surgical Provider 11/29/21 05/07/22 Diana Desir, [facility] [address] [place] [address] Assigned MTM Pharmacist 01/02/22 Rich Barrett MD [address] [place] [address] Physician Ophthalmology 01/21/22 Neil Kent MD [address] [place], [place] [address] Dermatology 02/24/22 Roney Story DPM [address] [facility] [address] [place] [address] Assigned Musculoskeletal Provider 03/20/22 08/13/22 Erica Farrell APRN PIPELINER [address] [place] [address] Assigned Heart and Vascular Provider 04/03/22 04/16/22 Diana Desir, [facility] [address] [place] [address] Assigned MTM Pharmacist 04/07/22 Jelena David OD [address] [facility] [place] [address] Assigned Surgical Provider 05/08/22 10/08/22 Galo Burrell MD Assigned Heart and Vascular Provider 04/17/22 06/11/22 Livan Sharif MD [address] [facility] [address] [place] [address] Cardiovascular Disease 05/14/22 Livan Sharif MD [address] [facility] [address] [place] [address] Assigned Heart and Vascular Provider 06/12/22 07/23/22 Catherine Cm MD [address] [facility] [address] [place] [address] Cardiovascular Disease 07/21/22 Valery Veronica, PA-C [address] [place] [address] Physician Home Care Giver Dermatology 07/21/22 Catherine Cm MD [address] [facility] [address] [place] [address] Assigned Heart and Vascular Provider 07/24/22 11/05/22 Johnny Murillo MD [address] [place] [address] Assigned Musculoskeletal Provider 08/14/22 10/08/22 Brea Quinn APRN PIPELINER [address] [place] [address] [phone] Nurse Practitioner Dermatology 09/21/22 Brea Quinn APRN PIPELINER [address] [place], [place] [address], [place] [address] Assigned Surgical Provider 10/09/22 05/01/24 [place] [address] [place] [address] Assigned Musculoskeletal Provider 10/09/22 05/01/24 Livan Sharif MD [address] [facility] [address] [place] [address] Assigned Heart and Vascular Provider 11/06/22 11/12/22 Catherine Cm MD [address] [facility] [place] [address] Assigned Heart and Vascular Provider 11/13/22 05/27/23 Sydnie Martinez RN Personal Advocate & Liaison (PAL) Family Medicine 03/28/23 07/31/23 Alfonso Renteria MD [address] [facility] [address] [place] [address] Assigned Neuroscience Provider 04/02/23 09/29/24 Cheng Todd PA-C [address] [place] [address] Assigned PCP 04/30/23 07/15/23 Radha Lomeli APRN PIPELINER [address] [place] [address] Assigned Heart and Vascular Provider 05/28/23 Jelena David OD [address] [facility] [place] [address] MD Ophthalmology 06/15/23 Pao Joseph, RN Personal Advocate & Liaison (PAL) Nurse 08/01/23 11/07/23 Esha Grimm PA-C [address] [place] [phone] Assigned PCP 07/16/23 Valery Veronica PA-C [address] [place] [address] 689505 Physician Home Care Giver Dermatology 09/19/23 Rey Tay MD [address] [place] [address] 312505 MD Gastroenterology 09/20/23 Rocky Zepeda DO [address] [place] [address] 513235 Physician Gastroenterology 09/20/23 Philip Dumont MD [address] [place] [address] 034765 Physician Ophthalmology 09/22/23 Meredith Carrera PA-C [address] [place] [address] [phone] Assigned Gastroenterology Provider 11/01/23 Neil Kent MD [address] [place] [address] [phone] Dermatology 11/02/23 [place] [address] [place] [address] Neurological Surgery 12/26/23 Audrey Waite PA-C [address] [place] [address] Physician Home Care Giver Dermatology 02/28/24 Valery Veronica PA-C [address] [place] [address] Physician Home Care Giver Dermatology 04/10/24 Herminia Hatch MD [facility] [place], [place] [phone] Assigned Rheumatology Provider 07/02/24 Jelena David OD [address] [facility] [place] [address] Ophthalmology 08/30/24 [place] [address] [place] [address] Assigned Neuroscience Provider 09/30/24 Maru Man PA-C [address] [address] Physician Home Care Giver Dermatology 10/03/24 documented as of this encounter
--- OUTSIDE RECORDS SUMMARY | 2024-10-18 19:20 | XMS_ITS | Encounter Summary ---
Author Organization [facility] Address [address] [place] [address] Care Team Providers Care 3Rd Pressman Name Role Phone Lita Oseguera Unavailable Unavailable Marija Edgar APRN DOCTOR OF CHIROPRACTIC Primary Care Provider + Chanelle Mccann APRN CNM Unavailab le Kyara De La Fuente RN Unavailable [phone] Marija Edgar APRN DOCTOR OF CHIROPRACTIC Unavailable [phone] Mynor Broussard MD Unavailable [phone] Keisha Dotson MD Unavailable [phone] Stacey Briones SCHEDULING CLERK Unavailable Lesley Guillermo CHW Unavailable Mary Mejia Unavailable Unavailable Lita Oseguera Unavailable Unavailable Galo Burrell MD Unavailable Unavailable Cristina Wood Unavailable Lesley Guillermo CHW Unavailable Meredith Bedoya Unavailable Unavailable Cristina Wood Unavailable Diana Desir [facility] Unavailable Rain Galaviz PA-C Unavailable Summer Lara MD Unavailable [phone] Summer Lara MD Unavailable [phone] Summer Lara MD Unavailable [phone] Tavia Wyatt MD Unavailable [phone] Johnny Murillo MD Unavailable [phone] Erica Farrell SPECIAL EFFECTS MAKEUP ARTIST DOCTOR OF CHIROPRACTIC Unavailable Vikas Teresitakaren Watson [facility] Unavailable Tavia Wyatt MD Unavailable [phone] Diana Desir [facility] Unavailable [phone] Rich Barrett MD Unavailable Neil Kent MD Unavailable Roney StoryM Unavailable Erica Farrell SPECIAL EFFECTS MAKEUP ARTIST DOCTOR OF CHIROPRACTIC Unavailable Diana Desir [facility] Unavailable [phone] Jelena David OD Unavailable Galo Burrell MD Unavailable Unavailable Livan Sharif MD Unavailable Livan Sharif MD Unavailable Catherine Cm MD Unavailable + Valery Veronica PA-C Unavailable [phone] Catherine Cm MD Unavailable + Johnny Murillo MD Unavailable [phone] Brea Quinn APRN DOCTOR OF CHIROPRACTIC Unavailable [phone] Brea Quinn APRN DOCTOR OF CHIROPRACTIC Unavailable [phone] Jose Francisco Johnson MD Unavailable Livan Sharif MD Unavailable + Catherine Cm MD Unavailable + Sydnie Martinez RN Unavailable Unavailable Alfonso Renteria MD Unavailable [phone] Esha Grimm PA-C Primary Care Provider [phone] Cheng Todd PA-C Unavailable Radha Lomeli APRN DOCTOR OF CHIROPRACTIC Unavailable Jelena David OD Unavailable Pao Joseph RN Unavailable Unavailable Esha Grimm PA-C Unavailable Valery Veronica PA-C Unavailable Rey Tay MD Unavailable Rocky Zepeda DO Unavailable Philip Dumont MD Unavailable Meredith Carrera PA-C Unavailable Neil Kent MD Unavailable Juan Pablo Emmanuel MD Unavailable Audrey Waite PA-C Unavailable Valery Veronica PA-C Unavailable Herminia Hatch MD Unavailable Jelena David OD Unavailable Jaun Pablo Emmanuel MD Unavailable Maru Man PA-C Unavailable Reason for Visit * Reason Onset Date Comments Patient/info Update 08/31/2020 appointment request Encounter Details Date Type Department Care Team (Late st Contact Info) Description 08/31/2020 [facility] [address] [address] Marija Edgar APRN DOCTOR OF CHIROPRACTIC [address] [place] [phone] Patient/info Update (appointment request ) Social History [...] often do you attend [facility] or worship services? More than 4 times [...] Answer Date Recorded PHQ-2 Score 0 08/12/2020 [facility] - Occupational Stress Questionnaire [...] PM CDT Legal Sex Female 4:13 AM STRUCTURAL BIOLOGIST Gender Identity Female 03/02/2021 5:45 PM CDT Sexual Orientation Straight 02/28/2020 12 :51 AM CDT COVID-19 Exposure Response Date Recorded In the last month, have you been in contact with someone who was confirmed or suspected to have Coronavirus / COVID-19? No / Unsure 09/03/2020 12:11 PM STRUCTURAL BIOLOGIST documented as of this encounter Miscellaneous Notes * Telephone Encounter - Maryjane Mccallum RN - 09/01/2020 7:21 AM STRUCTURAL BIOLOGIST Patient sent message requesting office visit with [...] Office Visit with Marija Edgar APRN CNP [facility] ([facility] ) [address] [facility] [phone] Maryjane Mccallum Registered Nurse [facility] CTURAL BIOLOGIST documented in this encounter Plan of Treatment Upcoming Encounters Date Type Department Care Team (Late st Contact Info) Description 10/22/2024 11:00 AM CDT Office [facility] [address] [phone] Maru Man PA-C [address] [address] 10/23/2024 PRE VISIT [facility] - [address], [address] [place] [address] Johnny Penn MD [address] [place] 76[address] Previsit 10/23/2024 9:30 AM CDT Office Visit [facility] [address] [facility], [address] [place] [phone] [place] [address] [place] [address] Johnny Penn MD [address] [place] 47[address] 10/24/2024 4:00 PM CDT Office Visit [facility] [address] [facility] [address] [place] [phone] Jelena David, [address] [facility] [place] [address] 10/31/2024 9:15 AM CDT Virtual Visit [facility] Gastroenterology [address] [phone] Meredith Carrera PA-C [address] [place] [address] 335825 12/20/2024 2:30 PM CDT Office Visit [facility] [address] [place] [address] Esha Grimm PA-C [address] [place] [address] documented as of this encounter Visit Diagnoses Not on filedocumented in this encounter Additional Health Concerns Infection Onset Date Last Indicated Resolved Time Rule Out COVID-19 09/24/2020 09/24/2020 09/24/2020 9:24 AM CDT Rule Out COVID-19 11/05/2020 11/05/2020 11/06/2020 1:09 PM CDT Rule Out COVID-19 05/11/2021 05/11/2021 05/13/2021 10:18 AM CDT Rule Out COVID-19 07/13/2021 07/13/2021 07/14/2021 3:04 PM STRUCTURAL BIOLOGIST Rule Out COVID-19 07/18/2021 07/18/2021 07/20/2021 1:56 PM STRUCTURAL BIOLOGIST COVID-19 07/18/2021 07/18/2021 08/08/2021 11:3 9 PM STRUCTURAL BIOLOGIST Rule Out COVID-19 12/18/2021 12/18/2021 12/19/2021 11:34 AM CDT Rule Out COVID-19 02/24/2022 02/24/2022 02/25/2022 1:08 PM CDT Rule Out COVID-19 04/26/2022 04/26/2022 04/26/2022 6:47 AM CDT Rule Out COVID-19 05/17/2022 05/17/2022 05/17/2022 10:20 PM STRUCTURAL BIOLOGIST Rule Out COVID-19 06/09/2022 06/09/2022 06/09/2022 9:35 AM STRUCTURAL BIOLOGIST COVID-19 06/09/2022 06/09/2022 06/30/2022 11:4 1 PM STRUCTURAL BIOLOGIST Rule Out COVID-19 11/10/2022 11/10/2022 11/11/2022 12:17 PM CDT Rule Out COVID-19 03/07/2023 03/07/2023 03/07/2023 1:20 PM CDT Rule Out COVID-19 12/26/2023 12/26/2023 12/26/2023 9:50 AM CDT Rule Out COVID-19 04/09/2024 04/09/2024 04/10/2024 6:48 PM CDT Rule Out COVID-19 10/04/2024 10/04/2024 10/05/2024 9:42 AM CDT Assessment Noted Time PHQ-9 Depression Total Score: 9 06/25/20 20 7:04 AM STRUCTURAL BIOLOGIST documented as of this encounter Care Teams 3Rd Pressman Relationship Specialty Start Date End Date Marija Edgar APRN DOCTOR OF CHIROPRACTIC PCP - General Nurse Practitioner 04/30/20 04/14/23 Esha Grimm PA-C [address] [place] [phone] PCP - General Family Medicine 05/04/23 Lita Oseguera Personal Advocate & Liaison (PAL) 02/28/20 03/27/23 Chanelle Mccann APRN CNM [address] [facility] 200 [place] [address] Assigned OBGYN Provider 05/02/2005/09 Kyara De La Fuente, RN Specialty Teamsite Developer Neurology 06/04/20 03/05/21 Marija Edgar APRN DOCTOR OF CHIROPRACTIC Assigned PCP 06/08/20 04/29/23 Mynor Broussard MD 6[address] [facility] 500 [place], [place] 691065 Assigned Surgical Provider 06/01/20 11/28/21 Keisha Dotson MD 909 [place], [place] 353455 Assigned Neuroscience Provider 06/04/20 04/01/23 Stacey Briones, SCHEDULING CLERK Lead Teamsite Developer Primary Care - CC 08/11/2012/30 Lesley Guillermo, [facility] Community Health Worker 08/11/2010/01 Jackie Mary Financial Resource Worker 09/02/20 10/06/20 Lita Oseguera Personal Advocate & Liaison (PAL) Family Medicine 09/10/20 09/21/20 Galo Burrell MD Assigned Heart and Vascular Provider 10/05/20 04/02/22 Cristina Wood Financial Resource Worker 10/07/20 10/14/20 Lesley Guillermo, [facility] Community Health Worker 10/23/2012/30 Meredith Bedoya Financial Resource Worker 10/23/20 11/23/20 Cristina Wood Financial Resource Worker 02/09/21 02/09/21 Diana Desir, [facility] [address] [place] [address] Pharmacist Pharmacist 04/17/21 Rain Galaviz PA-C [address] [place] [address] [address] [place], [place] [phone] Physician Music Specialist Dermatology 04/28/21 Summer Lara MD [address] [place] [address] 616194 Assigned OBGYN Provider 05/10/2105/23 Summer Lara MD [address] [place] [address] 372424 Assigned OBGYN Provider 05/31/21 2 Summer Lara MD [address] [place] [address] Assigned OBGYN Provider 05/24/2105/30 Tavia Wyatt MD [address] [place] [address] Dermatology 07/14/21 Johnny Murillo MD [address] [place] [address] Assigned Musculoskeletal Provider 08/30/21 03/17/22 Erica Farrell APRN DOCTOR OF CHIROPRACTIC 6405 [facility] [address] [place], [place] 2289[address] Nurse Practitioner Cardiovascular Disease 09/09/21 [facility] [address] [place], [place] [phone] Pharmacist Pharmacist 09/24/21 09/29/21 Tavia Wyatt MD [address] [place] [address] Assigned Surgical Provider 11/29/21 05/07/22 [facility] [address] [place] [address] Assigned MTM Pharmacist 01/02/22 Rich Barrett MD [address] [place] [address] Physician Ophthalmology 01/21/22 Neil Kent MD 500 [place] [address] Dermatology 02/24/22 Roney Story DPM [address] [facility] [address] [place] [address] Assigned Musculoskeletal Provider 03/20/22 08/13/22 Erica Farrell APRN DOCTOR OF CHIROPRACTIC 1700 [place] [address] Assigned Heart and Vascular Provider 04/03/22 04/16/22 Dinaa Desir, [facility] 3033 [place] [address] Assigned MTM Pharmacist 04/07/22 Jelena David OD [address] [facility] [place] [address] Assigned Surgical Provider 05/08/22 10/08/22 Galo Burrell MD Assigned Heart and Vascular Provider 04/17/22 06/11/22 Livan Sharif MD [address] [place] [address] Cardiovascular Disease 05/14/22 Livan Sharif MD [address] [place] [address] Assigned Heart and Vascular Provider 06/12/22 07/23/22 Catherine Cm MD [address] [place] [address] Cardiovascular Disease 07/21/22 Valery Veronica, PAUcheC 909 [place] [address] Physician Music Specialist Dermatology 07/21/22 Catherine Cm MD [address] [place] [address] Assigned Heart and Vascular Provider 07/24/22 11/05/22 Johnny Murillo MD [address] [place] [address] Assigned Musculoskeletal Provider 08/14/22 10/08/22 Brea Quinn APRN DOCTOR OF CHIROPRACTIC [address] [place] [address] Nurse Practitioner Dermatology 09/21/22 Brea Quinn APRN DOCTOR OF CHIROPRACTIC [address] [place] [address] Assigned Surgical Provider 10/09/22 05/01/24 [place] [address] [place] [address] Assigned Musculoskeletal Provider 10/09/22 05/01/24 Livan Sharif MD [address] [place] [address] Assigned Heart and Vascular Provider 11/06/22 11/12/22 Catherine Cm MD [address] [place] [address] Assigned Heart and Vascular Provider 11/13/22 05/27/23 Sydnie Martinez RN Personal Advocate & Liaison (PAL) Family Medicine 03/28/23 07/31/23 Alfonso Renteria MD 5775 [facility] [address] 200 [place] [address] Assigned Neuroscience Provider 04/02/23 09/29/24 Cheng Todd PA-C [address] [place] [address] [phone] Assigned PCP 04/30/23 07/15/23 Radha Lomeli APRN DOCTOR OF CHIROPRACTIC 6405 [facility] [address] [place], [place] 972725 Assigned Heart and Vascular Provider 05/28/23 Jelena David OD [address] [facility] [address] [place] [phone] Ophthalmology 06/15/23 Pao Joseph RN Personal Advocate & Liaison (PAL) Nurse 08/01/23 11/07/23 Esha Grimm PA-C [address] [place] [address] Assigned PCP 07/16/23 Valery Veronica PA-C [address] [place] [address] 297335 Physician Music Specialist Dermatology 09/19/23 Rey Tay MD [address] [place] [address] [phone] MD Gastroenterology 09/20/23 Rocky Zepeda DO [address] [place] [address] 121185 Physician Gastroenterology 09/20/23 Philip Dumont MD [address] [place] [address] 558395 Physician Ophthalmology 09/22/23 Meredith Carrera PA-C [address] [place] [address] 041225 Assigned Gastroenterology Provider 11/01/23 Neil Kent MD [address] [place] [address] 119490 Dermatology 11/02/23 [place] [address] [address] 561717 Neurological Surgery 12/26/23 Audrey Waite PA-C [address] [place] [address] 449435 Physician Music Specialist Dermatology 02/28/24 Valery Veronica PA-C 903310 99[place] [address] Physician Music Specialist Dermatology 04/10/24 Herminia Hatch MD [facility]5 [place] [address] Assigned Rheumatology Provider 07/02/24 [place] [address] [place] [address] [place] [address] Ophthalmology 08/30/24 [place] [address] [address] [place] [address] Assigned Neuroscience Provider 09/30/24 Maru Man PA-C [address] [place] [address] Physician Music Specialist Dermatology 10/03/24 documented as of this encounter
--- OUTSIDE RECORDS SUMMARY | 2024-10-18 19:20 | XMS_ITS | Encounter Summary ---
Author Organization [facility] Address [address] [place] [address] Care Team Providers Care Pharmacist Assistant Name Role Phone Diana Desir [facility] Unavailable [phone] Rain Galaviz PA-C Unavailable Tavia Wyatt MD Unavailable Erica Farrell APRN BREAD WRAPPER OPERATOR Unavailable Rich Barrett MD Unavailable [phone] Neil Kent MD Unavailable DesirDiana [facility] Unavailable Livan Sharif MD Unavailable Catherine Cm MD Unavailable + Valery Veronica PA-C Unavailable [phone] Brea Quinn APRN BREAD WRAPPER OPERATOR Unavailable Brea Quinn UPHOLSTERY PARTS SORTER BREAD WRAPPER OPERATOR Unavailable Jose Francisco Johnson MD Unavailable Sydnie Martinez RN Unavailable Unavailable Alfonso Renteria MD Unavailable [phone] Esha Grimm PA-C Primary Care Provider [phone] Cheng Todd PA-C Unavailable Radha Lomeli APRN BREAD WRAPPER OPERATOR Unavailable Jelena David OD Unavailable Pao Joseph RN Unavailable Unavailable Esha Grimm Adam PA-C Unavailable [phone] Valery Veronica PA-C Unavailable Rey Tay MD Unavailable Rocky Zepeda DO Unavailable Philip Dumont MD Unavailable Meredith Carrera PA-C Unavailable [phone] Neil Kent MD Unavailable Juan Pablo Emmanuel MD Unavailable [phone] Audrey Waite PA-C Unavailable JeremíasValery damon PA-C Unavailable Herminia Hatch MD Unavailable Jelena David OD Unavailable [phone] Juan Pablo Emmanuel MD Unavailable Maru Man PA-C Unavailable Encounter Details Date Type Department Care Team (Late st Contact Info) Description 06/15/2023 MyC Medical Advice [facility] [address] [place] [address] [place] [address] Doris Levi Social History Tobacco [...] often do you attend [facility] or evangelical services? 1 to 4 times per year 03/10/2023 Do you belong to any clubs o r organizations such as mormon groups, unions, fraLaguo or athletic groups, or school groups? No [...] Answer Date Recorded PHQ-2 Score 1 05/16/2023 [facility] [...] exercise at this level? 30 min 03/10/2023 Roseland Depression Scale Answer Date Recorded Roseland Depression Score 5 01/14/2021 Last EPDS Self [...] [facility], or couch-surfing.) Yes 04/18/2023 Are you worried [...] PM CDT Legal Sex Female 4:13 AM LEADERSHIP PROGRAM INTERN Gender Identity Female 03/02/2021 5:45 PM CDT Sexual Orientation Straight 02/28/2020 12 :51 AM CDT documented as of this encounter Plan of Treatment Upcoming Encounters Date Type Department Care Team ([facility] st Contact Info) Description 10/22/2024 11:00 AM CDT Office Visit [address] [phone] Maru Man PA-C [address] [address] 10/23/2024 PRE VISIT [facility] [address] [facility], [address] [place] [phone] Johnny Penn MD [address] [place] [address] Previsit 10/23/2024 9:30 AM CDT Office Visit [facility] [address] [place] [address], [address] [place] [phone] [place] [address] [place] 37[address] Johnny Penn MD [address] [place] 35[address] 10/24/2024 4:00 PM CDT Office Visit [facility] [address] [facility] [address] [place] [phone] Jelena David, [place] [address] [facility] [place] [address] 10/31/2024 9:15 AM CDT Virtual Visit [facility] Gastroenterology [address] 4th [place] [phone] Meredith Carrera PA-C 909 [place], [place] 6[address] 12/20/2024 2:30 PM CDT Office Visit [address] [phone] Esha Grimm PA-C [address] [place] [address] documented as of this encounter Visit Diagnoses Not on filedocumented in this encounter Additional Health Concerns Infection Onset Date Last Indicated Resolved Time Rule Out COVID-19 12/26/2023 12/26/2023 12/26/2023 9:50 AM CDT Rule Out COVID-19 04/09/2024 04/09/2024 04/10/2024 6:48 PM CDT Rule Out COVID-19 10/04/2024 10/04/2024 10/05/2024 9:42 AM CDT Assessment Noted Time PHQ-9 Depression Total Score: 6 05/16/20 9:29 AM LEADERSHIP PROGRAM INTERN documented as of this encounter Care Teams Pharmacist Assistant Relationship Specialty Start Date End Date Esha Grimm PA-C [address] [place] [phone] PCP - General Family Medicine 05/04/23 Diana Desir, [facility] [address] [place], [place] 169[address] Pharmacist Pharmacist 04/17/21 Rain Galaviz PA-C [address] [place] [address] [address] [place] [address] Physician Assembly Machine Set Up Mechanic Dermatology 04/28/21 Tavia Wyatt MD [address] [place] [address] [address] [place] [id number] Dermatology 07/14/21 Erica Farrell APRN BREAD WRAPPER OPERATOR 6405 [facility] [address] [place] [address] Nurse Practitioner Cardiovascular Disease 09/09/21 Rich Barrett MD [address] [place] [address] Physician Ophthalmology 01/21/22 Neil Kent MD 500 [place], [place] 388705 Dermatology 02/24/22 [facility] [address] [place], [place] 828[address] Assigned MTM Pharmacist 04/07/22 Livan Sharif MD [address] [place] [address] Cardiovascular Disease 05/14/22 Catherine Cm MD [address] [place], [place] 5108[address] Cardiovascular Disease 07/21/22 Valery Veronica, PA-C 909 [place], [place] 113[address] Physician Assembly Machine Set Up Mechanic Dermatology 07/21/22 Brea Quinn APRN BREAD WRAPPER OPERATOR 500 [place] [address] Nurse Practitioner Dermatology 09/21/22 Brea Quinn APRN BREAD WRAPPER OPERATOR [address] [place] [address] [facility] [place] [address] Assigned Surgical Provider 10/09/22 05/01/24 [place] [address] [address] [facility] 300 [place] [address] Assigned Musculoskeletal Provider 10/09/22 05/01/24 Sydnie Martinez RN Personal Advocate & Liaison (PAL) Family Medicine 03/28/23 07/31/23 Alfonso Renteria MD 5775 [facility] 200 [place] [address] Assigned Neuroscience Provider 04/02/23 09/29/24 Cheng Todd PA-C [address] [place] [address] [phone] Assigned PCP 04/30/23 07/15/23 Radha Lomeli APRN BREAD WRAPPER OPERATOR [address] [place] 8497700 [place] [address] Assigned Heart and Vascular Provider 05/28/23 Jelena David OD [address] [facility] [place] [address] Ophthalmology 06/15/23 Pao Joseph, VJ Personal Advocate & Liaison (PAL) Nurse 08/01/23 11/07/23 Esha Grimm PA-C [address] [place] [address] Assigned PCP 07/16/23 Valery Veronica PA-C 9 [place] [address] Physician Assembly Machine Set Up Mechanic Dermatology 09/19/23 Rey Tay MD [address] [place] [address] Gastroenterology 09/20/23 Rocky Zepeda DO [address] [place] [address] Physician Gastroenterology 09/20/23 Philip Dumont MD [address] [place] [address] Physician Ophthalmology 09/22/23 Meredith Carrera PA-C [address] [place] [address] 194905 Assigned Gastroenterology Provider 11/01/23 Neil Kent MD [address] [place] [address] 441960 MD Dermatology 11/02/23 [place] [address] 293347 Neurological Surgery 12/26/23 Audrey Waite PA-C [address] [place] [address] Physician Assembly Machine Set Up Mechanic Dermatology 02/28/24 Valery Veronica PA-C 252183 [address], [place] [address] Physician Assembly Machine Set Up Mechanic Dermatology 04/10/24 Herminia Hatch MD [address] [place] [address] Assigned Rheumatology Provider 07/02/24 Jelena David OD [address] [facility] [place] [address] Ophthalmology 08/30/24 [place] [address] [place], [place] [address] Assigned Neuroscience Provider 09/30/24 Maru Man PA-C [address] [place] [address] Physician Assembly Machine Set Up Mechanic Dermatology 10/03/24 documented as of this encounter
--- OUTSIDE RECORDS SUMMARY | 2024-10-18 19:20 | XMS_ITS | Encounter Summary ---
Author Organization [facility] Address [address] [place] [address] Care Team Providers Care Copier Field Service Technician Name Role Phone Lita Oseguera Unavailable Unavailable Marija Edgar APRN WAITER/WAITRESS Primary Care Provider + Chanelle Mccann APRN CNM Unavailab le Kyara De La Fuente RN Unavailable [phone] Marija Edgar APRN WAITER/WAITRESS Unavailable Mynor Broussard MD Unavailable [phone] Keisha Dotson MD Unavailable Stacey Briones BI ANALYST Unavailable Lesley Guillermo CHW Unavailable Mary Mejia Unavailable Unavailable Lita Oseguera Unavailable Unavailable Galo Burrell MD Unavailable Unavailable Cristina Wood Unavailable Lesley Guillermo CHW Unavailable Meredith Bedoya Unavailable Unavailable Cristina Wood Unavailable Diana Desir [facility] Unavailable Rain Galaviz PA-C Unavailable [phone] Summer Lara MD Unavailable [phone] Summer Lara MD Unavailable [phone] Summer Lara MD Unavailable [phone] Tavia Wyatt MD Unavailable [phone] Johnny Murillo MD Unavailable [phone] Erica Farrell ROUTE RETURNER WAITER/WAITRESS Unavailable Vikas Teresitakaren Watson [facility] Unavailable Tavia Wyatt MD Unavailable [phone] Diana Desir [facility] Unavailable [phone] Rich Barrett MD Unavailable Neil Kent MD Unavailable Roney StoryM Unavailable Erica Farrell ROUTE RETURNER WAITER/WAITRESS Unavailable Diana Desir [facility] Unavailable [phone] Jelena David OD Unavailable Galo Burrell MD Unavailable Unavailable Livan Sharif MD Unavailable Livan Sharif MD Unavailable Catherine Cm MD Unavailable + Valery Veronica PA-C Unavailable [phone] Catherine Cm MD Unavailable + Johnny Murillo MD Unavailable +[phone] Brea Quinn APRN WAITER/WAITRESS Unavailable [phone] Brea Quinn APRN WAITER/WAITRESS Unavailable [phone] Jose Francisco Johnson MD Unavailable Livan Sharif MD Unavailable + Catherine Cm MD Unavailable + Sydnie Martinez RN Unavailable Unavailable Alfonso Renteria MD Unavailable [phone] Esha Grimm PA-C Primary Care Provider Cheng Todd PA-C Unavailable Radha Lomeli APRN WAITER/WAITRESS Unavailable Jelena David OD Unavailable Pao Joseph RN Unavailable Unavailable Esha Grimm PA-C Unavailable [phone] Valery Veronica PA-C Unavailable Rey Tay MD Unavailable Rocky Zepeda DO Unavailable Philip Dumont MD Unavailable Meredith Carrera PA-C Unavailable Neil Kent MD Unavailable Juan Pablo Emmanuel MD Unavailable Audrey Waite PA-C Unavailable Valery Veronica PA-C Unavailable Herminia Hatch MD Unavailable Jelena David OD Unavailable [phone] Juan Pablo Emmanuel MD Unavailable [phone] Maru Man PA-C Unavailable Encounter Details Date Type Department Care Team (Late st Contact Info) Description 08/24/2020 [facility] [address] [address] Marija Edgar APRN WAITER/WAITRESS [address] [place] [address] Social History Tobacco Use Types Packs/Day Years [...] you attend chur ch or zoroastrianism services? More than 4 times [...] Answer Date Recorded PHQ-2 Score 0 08/12/2020 [facility] [...] PM CDT Legal Sex Female 4:13 AM SHELL SIEVE OPERATOR Gender Identity Female 03/02/2021 5:45 PM CDT Sexual Orientation Straight 02/28/2020 12 :51 AM CDT COVID-19 Exposure Response Date Recorded In the last month, have you been in contact with someone who was confirmed or suspected to have Coronavirus / COVID-19? No / Unsure 08/20/2020 12:47 PM SHELL SIEVE OPERATOR documented as of this encounter Miscellaneous Notes * Telephone Encounter - Marija Edgar APRN WAITER/WAITRESS - 08/25/2020 11:47 AM SHELL SIEVE OPERATOR Replied via MyChart Marija Edgar APRN WAITER/WAITRESS on 08/25/2020 at 11:51 AM L SIEVE OPERATOR documented in this encounter Plan of Treatment Upcoming Encounters Date Type Department Care Team (Late st Contact Info) Description 10/22/2024 11:00 AM CDT Office Visit [address] [phone] Maru Man PA-C [address] [place] [address] 10/23/2024 PRE VISIT [facility] Neurology [address] [phone] Johnny Penn MD [address] [place] [phone] Previsit 10/23/2024 9:30 AM CDT Office Visit [facility] Neurology [address] [address] [place] [address] [place], [place] [address] Johnny Penn MD [address] [place] [address] 10/24/2024 4:00 PM CDT Office Visit [facility] [address] [place] [phone] Frankie Jelena Garcia, [place] [address] [facility] [place] [address] 10/31/2024 9:15 AM CDT Virtual Visit [facility] Gastroenterology Clinic [address] 4th [place] [phone] Meredith Carrera PA-C [address] [place] [address] 12/20/2024 2:30 PM CDT Office Visit [facility] [address] [place] [phone] Esha Grimm PA-C [address] [place] [address] documented as of this encounter Visit Diagnoses Not on filedocumented in this encounter Additional Health Concerns Infection Onset Date Last Indicated Resolved Time Rule Out COVID-19 08/30/2020 08/30/2020 08/30/2020 5:05 PM SHELL SIEVE OPERATOR Rule Out COVID-19 09/24/2020 09/24/2020 09/24/2020 9:24 AM CDT Rule Out COVID-19 11/05/2020 11/05/2020 11/06/2020 1:09 PM CDT Rule Out COVID-19 05/11/2021 05/11/2021 05/13/2021 10:18 AM CDT Rule Out COVID-19 07/13/2021 07/13/2021 07/14/2021 3:04 PM SHELL SIEVE OPERATOR Rule Out COVID-19 07/18/2021 07/18/2021 07/20/2021 1:56 PM SHELL SIEVE OPERATOR COVID-19 07/18/2021 07/18/2021 08/08/2021 11:3 9 PM SHELL SIEVE OPERATOR Rule Out COVID-19 12/18/2021 12/18/2021 12/19/2021 11:34 AM CDT Rule Out COVID-19 02/24/2022 02/24/2022 02/25/2022 1:08 PM CDT Rule Out COVID-19 04/26/2022 04/26/2022 04/26/2022 6:47 AM CDT Rule Out COVID-19 05/17/2022 05/17/2022 05/17/2022 10:20 PM SHELL SIEVE OPERATOR Rule Out COVID-19 06/09/2022 06/09/2022 06/09/2022 9:35 AM SHELL SIEVE OPERATOR COVID-19 06/09/2022 06/09/2022 06/30/2022 11:4 1 PM SHELL SIEVE OPERATOR Rule Out COVID-19 11/10/2022 11/10/2022 11/11/2022 12:17 PM CDT Rule Out COVID-19 03/07/2023 03/07/2023 03/07/2023 1:20 PM CDT Rule Out COVID-19 12/26/2023 12/26/2023 12/26/2023 9:50 AM CDT Rule Out COVID-19 04/09/2024 04/09/2024 04/10/2024 6:48 PM CDT Rule Out COVID-19 10/04/2024 10/04/2024 10/05/2024 9:42 AM CDT Assessment Noted Time PHQ-9 Depression Total Score: 9 06/25/20 20 7:04 AM SHELL SIEVE OPERATOR documented as of this encounter Care Teams Copier Field Service Technician Relationship Specialty Start Date End Date Marija Edgar APRN CNP PCP - General Nurse Practitioner 04/30/20 04/14/23 Esha Grimm PA-C [address] [place] [phone] PCP - General Family Medicine 05/04/23 Lita Oseguera Personal Advocate & Liaison (PAL) 02/28/20 03/27/23 Chanelle Mccann APRN CNM [address] [facility] 200 [place] [address] Assigned OBGYN Provider 05/02/2005/09 Kyara De La Fuente, RN Specialty Sock Folder Neurology 06/04/20 03/05/21 Marija Edgar APRN WAITER/WAITRESS Assigned PCP 06/08/20 04/29/23 Mynor Broussard MD 6363 [facility] 500 [place], [place] 213745 Assigned Surgical Provider 06/01/20 11/28/21 Keisha Dotson MD 9 [place] [address] Assigned Neuroscience Provider 06/04/20 04/01/23 Stacey Briones, BI ANALYST Lead Sock Folder Primary Care - CC 08/11/2012/30 Lesley Guillermo, [facility] Community Health Worker 08/11/2010/01 Mary Mejia Financial Resource Worker 09/02/20 10/06/20 Lita Oseguera Personal Advocate & Liaison (PAL) Family Medicine 09/10/20 09/21/20 Galo Burrell MD Assigned Heart and Vascular Provider 10/05/20 04/02/22 Cristina Wood Financial Resource Worker 10/07/20 10/14/20 Lesley Guillermo, [facility] Community Health Worker 10/23/2012/30 Meredith Bedoya Financial Resource Worker 10/23/20 11/23/20 Cristina Wood Financial Resource Worker 02/09/21 02/09/21 Diana Desir, [facility] [address] [place] [address] Pharmacist Pharmacist 04/17/21 Rain Galaviz PA-C [address] [place] [address] [address] [place] [place], [place] [phone] Physician Piece Dyer Dermatology 04/28/21 Summer Lara MD [address] [place] [address] [phone] Assigned OBGYN Provider 05/10/2105/23 Summer Lara MD [address] [place] [address] [phone] Assigned OBGYN Provider 05/31/21 2 Summer Lara MD [address] [place] [address] [phone] Assigned OBGYN Provider 05/24/2105/30 Tavia Wyatt MD [address] [place] [address] [phone] Dermatology 07/14/21 Johnny Murillo MD [address] [place] [address] Assigned Musculoskeletal Provider 08/30/21 03/17/22 Erica Farrell APRN WAITER/WAITRESS 6[address] [facility] [address] [place] [address] Nurse Practitioner Cardiovascular Disease 09/09/21 Teresita Bean [facility] [address] [facility] [place] [place] [address] Pharmacist Pharmacist 09/24/21 09/29/21 Tavia Wyatt MD [address] [place] [address] Assigned Surgical Provider 11/29/21 05/07/22 [facility] 3033 [place] [address] Assigned MTM Pharmacist 01/02/22 Rich Barrett MD 3033 [place] [address] Physician Ophthalmology 01/21/22 Neil Kent MD 500 [place] [address] Dermatology 02/24/22 Roney Story DPM [address] [facility] [address] [place], [place] 482667 Assigned Musculoskeletal Provider 03/20/22 08/13/22 Erica Farrell APRN WAITER/WAITRESS 1700 [place] [address] Assigned Heart and Vascular Provider 04/03/22 04/16/22 Diana Desir, [facility] 30[address] [place] [address] Assigned MTM Pharmacist 04/07/22 Jelena David OD [address] [facility] [address] Assigned Surgical Provider 05/08/22 10/08/22 Galo Burrell MD Assigned Heart and Vascular Provider 04/17/22 06/11/22 Livan Sharif MD [address] [address] [place] [address] Cardiovascular Disease 05/14/22 Livan Sharif MD [address] [address] [place] [address] Assigned Heart and Vascular Provider 06/12/22 07/23/22 Catherine Cm MD [address] [place] [address] Cardiovascular Disease 07/21/22 Valery Veronica PA-C 909 [place], [place] 7[address]475 Physician Piece Dyer Dermatology 07/21/22 Catherine Cm MD [address] [place] [address] Assigned Heart and Vascular Provider 07/24/22 11/05/22 Johnny Murillo MD [address] [facility] [address] [place] [address] Assigned Musculoskeletal Provider 08/14/22 10/08/22 Brea Quinn APRN WAITER/WAITRESS 500 [place], [place] 227035 Nurse Practitioner Dermatology 09/21/22 Brea Quinn APRN WAITER/WAITRESS 6401 [facility] [place] 47[address] Assigned Surgical Provider 10/09/22 05/01/24 [place] [address] [facility] 300 [place], [place] 214217 Assigned Musculoskeletal Provider 10/09/22 05/01/24 Livan Sharif MD 6[address] [facility] [address] [place] [address] Assigned Heart and Vascular Provider 11/06/22 11/12/22 Catherine Cm MD 6[address] [facility] [address] [place] [address] Assigned Heart and Vascular Provider 11/13/22 05/27/23 Sydnie Martinez, VJ Personal Advocate & Liaison (PAL) Family Medicine 03/28/23 07/31/23 Alfonso Renteria MD [address] [facility] 200 [place] [address] Assigned Neuroscience Provider 04/02/23 09/29/24 Cheng Todd PA-C [address] [place] [address] [phone] Assigned PCP 04/30/23 07/15/23 Radha Lomeli APRN WAITER/WAITRESS 6[address] [facility] [address] [place] [address] Assigned Heart and Vascular Provider 05/28/23 Jelena David OD [address] [place] [address] MD Ophthalmology 06/15/23 Pao Joseph, VJ Personal Advocate & Liaison (PAL) Nurse 08/01/23 11/07/23 Esha Grimm PA-C [address] [place] [phone] Assigned PCP 07/16/23 Valery Veronica PA-C [address] [place] [address] 720835 Physician Piece Dyer Dermatology 09/19/23 Rey Tay MD [address] [place] [address] 145495 Gastroenterology 09/20/23 Rocky Zepeda DO [address] [place] [address] 697295 Physician Gastroenterology 09/20/23 Philip Dumont MD [address] [place] [address] Physician Ophthalmology 09/22/23 Meredith Carrera PA-C [address] [place] [address] Assigned Gastroenterology Provider 11/01/23 Neil Kent MD [address] [place] [address] Dermatology 11/02/23 [place] [address] [place] [address] Neurological Surgery 12/26/23 Audrey Waite PA-C [address] [place] [address] Physician Piece Dyer Dermatology 02/28/24 Valery Veronica PA-C [address] [place] [address] Physician Piece Dyer Dermatology 04/10/24 Herminia Hatch MD [facility]5 [place], [place] [phone] Assigned Rheumatology Provider 07/02/24 Jelena David OD [address] [place] [address] [place] [address] Ophthalmology 08/30/24 [place] [address] [place] [address] Assigned Neuroscience Provider 09/30/24 Maru Man PA-C [address] [place] [address] Physician Piece Dyer Dermatology 10/03/24 documented as of this encounter
--- OUTSIDE RECORDS SUMMARY | 2024-10-18 19:20 | XMS_ITS | Encounter Summary ---
Author Organization [facility] Address [address] [place] [address] Care Team Providers Care Arts And Crafts Instructor Name Role Phone Lita Oseguera Unavailable Unavailable Marija Edgar APRN BUTT TRIMMER Primary Care Provider + Marija Edgar APRN BUTT TRIMMER Unavailable Keisha Dotson MD Unavailable Galo Burrell MD Unavailable Unavailable Diana Desir [facility] Unavailable Rain Galaviz PA-C Unavailable Summer Lara MD Unavailable [phone] Tavia Wyatt MD Unavailable Johnny Murillo MD Unavailable Erica Farrell APRN BUTT TRIMMER Unavailable Tavia Wyatt MD Unavailable Diana Desir [facility] Unavailable Rich Barrett MD Unavailable [phone] Neil Kent MD Unavailable Roney Story DPM Unavailable Erica Farrell APRN BUTT TRIMMER Unavailable Diana Desir [facility] Unavailable [phone] Jelena David OD Unavailable [phone] Galo Burrell MD Unavailable Unavailable HoLivan MD Unavailable Livan Sharif MD Unavailable IsCatherine hobbs MD Unavailable + Valery Veronica PA-C Unavailable [phone] Catherine Cm MD Unavailable + Johnny Murillo MD Unavailable [phone] Brea Quinn WOOL CLEANER BUTT TRIMMER Unavailable [phone] Brea Quinn WOOL CLEANER BUTT TRIMMER Unavailable [phone] Jose Francisco Johnson MD Unavailable Livan Sharif MD Unavailable + IsCatherine boothe MD Unavailable + Sydnie Martinez RN Unavailable Unavailable Alfonso Renteria MD Unavailable Esha Grimm PA-C Primary Care Provider Cheng Todd PA-C Unavailable Radha Lomeli WOOL CLEANER BUTT TRIMMER Unavailable [phone] Jelena David OD Unavailable Pao Joseph RN Unavailable Unavailable Esha Grimm PA-C Unavailable [phone] Valery Veronica PA-C Unavailable [phone] Rey Tay MD Unavailable Rocky Zepeda DO Unavailable Philip Dumont MD Unavailable [phone] Meredith Carrera PA-C Unavailable Neil Kent MD Unavailable Juan Pablo Emmanuel MD Unavailable Audrey Waite PA-C Unavailable [phone] Valery Veronica PA-C Unavailable Herminia Hatch MD Unavailable Jelena David OD Unavailable Juan Pablo Emmanuel MD Unavailable Maru Man PA-C Unavailable [phone] Encounter Details Date Type Department Care Team (Late st Contact Info) Description 12/03/2021 MyC Medical Advice [facility] Epilepsy Care [address] [place], [facility] 255 [place] [address] Keisha Dotson MD [address] [place] [address] Social History Tobacco Use Types Packs/Day [...] How often do you attend pentecostal or mosque serv ices? Never 09/22/2021 Do [...] Answer Date Recorded PHQ-2 Score 2 09/22/2021 [facility] [...] in a longterm (including now)? No 09/22/2021 Grayson Depression Scale Answer Date Recorded Grayson Depression Score 5 01/14/2021 Last EPDS Self Harm Result Not on file 01/14 Education Answer Date Recorded What is the highest level of school you have completed or the highest degree you have received? 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 ENGINE REPAIRER Gender Identity Female 03/02/2021 5:45 PM [...] Description 10/22/2024 11:00 AM CDT Office Visit [facility] [address] [address] Maru Man PA-C [address] [address] 10/23/2024 PRE VISIT [facility] Neurology [facility] - [address], [address] [place] [phone] Johnny Penn MD [address] [place] [phone] Previsit 10/23/2024 9:30 AM CDT Office Visit [facility] Neurology [facility] [place] [address] [place] [address], [address] [place] [phone] [place] [address] [place] [address] Johnny Penn MD [address] [place] [address] 10/24/2024 4:00 PM CDT Office Visit [facility] [address] [facility] [address] [place] [phone] Jelena David, [address] [facility] [place] [address] 10/31/2024 9:15 AM CDT Virtual Visit [facility] Gastroenterology Clinic [address] [phone] Meredith Carrera PA-C [address] [place] [address] 12/20/2024 2:30 PM CDT Office Visit [facility] [address] [place] [phone] Esha Grimm PA-C [address] [place] [address] documented as of this encounter Visit Diagnoses Not on filedocumented in this encounter Additional Health Concerns Infection Onset Date Last Indicated Resolved Time Rule Out COVID-19 12/18/2021 12/18/2021 12/19/2021 11:34 AM CDT Rule Out COVID-19 02/24/2022 02/24/2022 02/25/2022 1:08 PM CDT Rule Out COVID-19 04/26/2022 04/26/2022 04/26/2022 6:47 AM CDT Rule Out COVID-19 05/17/2022 05/17/2022 05/17/2022 10:20 PM ENGINE REPAIRER Rule Out COVID-19 06/09/2022 06/09/2022 06/09/2022 9:35 AM ENGINE REPAIRER COVID-19 06/09/2022 06/09/2022 06/30/2022 11:4 1 PM ENGINE REPAIRER Rule Out COVID-19 11/10/2022 11/10/2022 11/11/2022 [...] of this encounter Care Teams Arts And Crafts Instructor Relationship Specialty Start Date End Date Marija Edgar APRN CNP PCP - General Nurse Practitioner 04/30/20 04/14/23 Esha Grimm PA-C [address] [place] [address] PCP - General Family Medicine 05/04/23 Lita Oseguera Personal Advocate & Liaison (PAL) 02/28/20 03/27/23 Marija Edgar APRN BUTT TRIMMER Assigned PCP 06/08/20 04/29/23 Keisha Dotson MD 909 [place] [address] Assigned Neuroscience Provider 06/04/20 04/01/23 Galo Burrell MD Assigned Heart and Vascular Provider 10/05/20 04/02/22 [facility] 3033 [place] [address] Pharmacist Pharmacist 04/17/21 Rain Galaviz PA-C [address] [place] [address] [place] [address] Physician Plastic Block Boiler Reliner Dermatology 04/28/21 Summer Lara MD [address] [place] [address] 156004 Assigned OBGYN Provider 05/31/21 2 Tavia Wyatt MD [address] [place], [place] 865804 Dermatology 07/14/21 Johnny Murillo MD [address] [place] 0285000 [place] [address] Assigned Musculoskeletal Provider 08/30/21 03/17/22 Erica Farrell APRN BUTT TRIMMER 640 [facility] [address] [place] [address] Nurse Practitioner Cardiovascular Disease 09/09/21 Tavia Wyatt MD [address] [place] [address] Assigned Surgical Provider 11/29/21 05/07/22 Diana Desir [facility] [address] [place] [address] Assigned MTM Pharmacist 01/02/22 Rich Barrett MD [address] [place] [address] Physician Ophthalmology 01/21/22 Neil Kent MD 500 [place] [address] Dermatology 02/24/22 Roney Story DPM [address] [facility] [address] [place] [address] Assigned Musculoskeletal Provider 03/20/22 08/13/22 Erica Farrell APRN BUTT TRIMMER 1700 [place] [address] Assigned Heart and Vascular Provider 04/03/22 04/16/22 Diana Desir [facility] [address] [place] [address] Assigned MTM Pharmacist 04/07/22 Jelena David OD [address] [facility] [place] [address] Assigned Surgical Provider 05/08/22 10/08/22 Galo Burrell MD Assigned Heart and Vascular Provider 04/17/22 06/11/22 Livan Sharif MD [address] [address] [place] 288[address] Cardiovascular Disease 05/14/22 Livan Sharif MD [address] [address] [place] 64[address] Assigned Heart and Vascular Provider 06/12/22 07/23/22 Catherine Cm MD [address] [address] [place] 197[address] Cardiovascular Disease 07/21/22 Valery Veronica, PAUcheC [address] [place] [address] 166515 Physician Plastic Block Boiler Reliner Dermatology 07/21/22 Catherine Cm MD [address] [address] [place] [address] Assigned Heart and Vascular Provider 07/24/22 11/05/22 Johnny Murillo MD [address] 830524 Assigned Musculoskeletal Provider 08/14/22 10/08/22 Brea Quinn APRN BUTT TRIMMER [address] [place] [address] 648795 Nurse Practitioner Dermatology 09/21/22 Brea Quinn, WOOL CLEANER BUTT TRIMMER 6401 [facility] [place] [address] Assigned Surgical Provider 10/09/22 05/01/24 [place] [address] [facility] 300 [place] [address] Assigned Musculoskeletal Provider 10/09/22 05/01/24 Livan Sharif MD [address] [place] 4268200 [place] [address] Assigned Heart and Vascular Provider 11/06/22 11/12/22 Catherine Cm MD [address] [place] [address] [place] [address] Assigned Heart and Vascular Provider 11/13/22 05/27/23 Sydnie Martinez RN Personal Advocate & Liaison (PAL) Family Medicine 03/28/23 07/31/23 Alfonso Renteria MD 5775 [facility] 200 [place] [address] Assigned Neuroscience Provider 04/02/23 09/29/24 Cheng Todd PA-C [address] [place] [address] Assigned PCP 04/30/23 07/15/23 Radha Lomeli, ARLENE BUTT TRIMMER 6[address] [facility] [address] [place] [address] Assigned Heart and Vascular Provider 05/28/23 Frankie Jelena TempletonSONJA woods [address] [facility] [place] [address] MD Ophthalmology 06/15/23 Pao Joseph, RN Personal Advocate & Liaison (PAL) Nurse 08/01/23 11/07/23 Esha Grimm PA-C [address] [place] [address] Assigned PCP 07/16/23 Valery Veronica PA-C [address] [place] [address] 068595 Physician Plastic Block Boiler Reliner Dermatology 09/19/23 Rey Tay MD [address] [place] [address] MD Gastroenterology 09/20/23 Rocky Zepeda DO [address] [place] [address] 339575 Physician Gastroenterology 09/20/23 Philip Dumont MD [address] [place] [address] 924875 Physician Ophthalmology 09/22/23 Meredith Carrera PA-C [address] [place] [address] 052475 Assigned Gastroenterology Provider 11/01/23 Neil Kent MD [address] [address] Dermatology 11/02/23 [place] [address] [place] [address] Neurological Surgery 12/26/23 Audrey Waite PA-C 500 [place] [address] Physician Plastic Block Boiler Reliner Dermatology 02/28/24 Valery Veronica PA-C 315540 [address], [place] [address] Physician Plastic Block Boiler Reliner Dermatology 04/10/24 Herminia Hatch MD [address] [place] [address] Assigned Rheumatology Provider 07/02/24 [place] [address] [place] [address] [place] [address] Ophthalmology 08/30/24 [place] [address] [place] [address] Assigned Neuroscience Provider 09/30/24 Maru Man PA-C [address] [place] [address] Physician Plastic Block Boiler Reliner Dermatology 10/03/24 documented as of this encounter
--- OUTSIDE RECORDS SUMMARY | 2024-10-18 19:20 | XMS_ITS | Encounter Summary ---
Author Organization [facility] Address [address] [place] [address] Care Team Providers Care Side Stitcher Name Role Phone Lita Oseguera Unavailable Unavailable Marija Edgar APRN ANTIQUER Primary Care Provider + Chanelle Mccann APRN CNM Unavailab le Kyara De La Fuente RN Unavailable [phone] Marija Edgar APRN ANTIQUER Unavailable [phone] Mynor Broussard MD Unavailable [phone] Keisha Dotson MD Unavailable [phone] Mary Mejia Unavailable Unavailable Stacey Briones SIGNAL OPERATOR Unavailable [phone] Lesley Guillermo CHW Unavailable Mary Mejia Unavailable Unavailable Lita Oseguera Unavailable Unavailable Galo Burrell MD Unavailable Unavailable Cristina Wood Unavailable Lesley Guillermo CHW Unavailable Meredith Bedoya Unavailable Unavailable Cristina Wood Unavailable Diana Desir [facility] Unavailable Ruhland, Rain Lena PA-C Unavailable Summer Lara MD Unavailable [phone] Summer Lara MD Unavailable [phone] Summer Lara MD Unavailable [phone] Tavia Wyatt MD Unavailable [phone] Johnny Murillo MD Unavailable [phone] Erica Farrell APRN ANTIQUER Unavailable VikasTeresita H Unavailable Tavia Wyatt MD Unavailable [phone] iDana Desir [facility] Unavailable [phone] Rich Barrett MD Unavailable [phone] Neil Kent MD Unavailable Roney Story [facility] Unavailable Erica Farrell APRN ANTIQUER Unavailable Diana Desir [facility] Unavailable [phone] Jelena David OD Unavailable Galo Burrell MD Unavailable Unavailable Livan Sharif MD Unavailable Livan Sharif MD Unavailable Catherine Cm MD Unavailable + Valery Veronica PA-C Unavailable [phone] Catherine Cm MD Unavailable + Johnny Murillo MD Unavailable +[phone] Brea Quinn APRN ANTIQUER Unavailable [phone] Brea Quinn HOST/HOSTESS ANTIQUER Unavailable [phone] Jose Francisco Johnson MD Unavailable Livan Sharif MD Unavailable Catherine Cm MD Unavailable + Sydnie Martinez RN Unavailable Unavailable Alfonso Renteria MD Unavailable [phone] Esha Grimm PA-C Primary Care Provider [phone] Cheng Todd PA-C Unavailable Radha Lomeli APRN ANTIQUER Unavailable Jelena David OD Unavailable [phone] Pao Joseph RN Unavailable Unavailable Esha Grimm PA-C Unavailable Valery Veronica PA-C Unavailable Rey Tay MD Unavailable Rocky Zepeda DO Unavailable Philip Dumont MD Unavailable Meredith Carrera PA-C Unavailable Neil Kent MD Unavailable Juan Pablo Emmanuel MD Unavailable Audrey Waite PA-C Unavailable Valery Veronica PA-C Unavailable Herminia Hatch MD Unavailable Jelena David OD Unavailable Juan Pablo Emmanuel MD Unavailable [phone] Maru Man PA-C Unavailable Encounter Details Date Type Department Care Team (Late st Contact Info) Description 08/07/2020 [facility] Care Coordination [facility] [address] [place] [address] Lesley Guillermo, [facility] Social History Tobacco Use Types [...] do you attend chur or sikhism services? More than 4 times [...] Answer Date Recorded PHQ-2 Score 3 06/24/2020 [facility] of Occupat ional Health - Occupational Stress [...] in a residential (including now)? No 08/11/2020 Education Answer Date Recorded What is the highest level of school you have completed or the highest degree you have received? 12th grade 08/07/2020 Comments Yes Sex and Gender Information Value Date Recorded Sex Assigned at Female 03/02/2021 5:45 PM CDT Legal Sex Female 4:13 AM DYNAMITE CARTRIDGE CRIMPER Gender Identity Female 03/02/2021 5:45 PM CDT Sexual Orientation Straight 02/28/2020 12 :51 AM CDT COVID-19 Exposure Response Date Recorded In the last month, have you been in contact with someone who was confirmed or suspected to have Coronavirus / COVID-19? No / Unsure 08/06/2020 2:03 PM DYNAMITE CARTRIDGE CRIMPER documented as of this encounter Plan of Treatment Upcoming Encounters Date Type Department Care Team ([facility] st Contact Info) Description 10/22/2024 11:00 AM CDT Office Visit [facility] [place] [address] [phone] Maru Man PA-C [address] [address] 10/23/2024 PRE VISIT [facility] Neurology [address] [place] [phone] Johnny Penn MD [address] [place] [id number] Previsit 10/23/2024 9:30 AM CDT Office Visit [facility] Neurology [address], [address] [place] [phone] [place] [address] [place] 448447 Johnny Penn MD [address] [place] [id number] 10/24/2024 4:00 PM CDT Office Visit [facility] [address] [place] [phone] Jelena David, [place] [address] [facility] [place] [address] 10/31/2024 9:15 AM CDT Virtual Visit [facility] Gastroenterology Clinic [place] [address] [facility] [address] 4th [place] [phone] Meredith Carrera PA-C [address] [place] [address] 12/20/2024 2:30 PM CDT Office Visit [facility] [address] [place] [address] Esha Grimm PA-C [address] [place] [address] documented as of this encounter Visit Diagnoses Not on filedocumented in this encounter Additional Health Concerns Infection Onset Date Last Indicated Resolved Time Rule Out COVID-19 08/30/2020 08/30/2020 08/30/2020 5:05 PM DYNAMITE CARTRIDGE CRIMPER Rule Out COVID-19 09/24/2020 09/24/2020 09/24/2020 9:24 AM CDT Rule Out COVID-19 11/05/2020 11/05/2020 11/06/2020 1:09 PM CDT Rule Out COVID-19 05/11/2021 05/11/2021 05/13/2021 10:18 AM CDT Rule Out COVID-19 07/13/2021 07/13/2021 07/14/2021 3:04 PM DYNAMITE CARTRIDGE CRIMPER Rule Out COVID-19 07/18/2021 07/18/2021 07/20/2021 1:56 PM DYNAMITE CARTRIDGE CRIMPER COVID-19 07/18/2021 07/18/2021 08/08/2021 11:3 9 PM DYNAMITE CARTRIDGE CRIMPER Rule Out COVID-19 12/18/2021 12/18/2021 12/19/2021 11:34 AM CDT Rule Out COVID-19 02/24/2022 02/24/2022 02/25/2022 1:08 PM CDT Rule Out COVID-19 04/26/2022 04/26/2022 04/26/2022 6:47 AM CDT Rule Out COVID-19 05/17/2022 05/17/2022 05/17/2022 10:20 PM DYNAMITE CARTRIDGE CRIMPER Rule Out COVID-19 06/09/2022 06/09/2022 06/09/2022 9:35 AM DYNAMITE CARTRIDGE CRIMPER COVID-19 06/09/2022 06/09/2022 06/30/2022 11:4 1 PM DYNAMITE CARTRIDGE CRIMPER Rule Out COVID-19 11/10/2022 11/10/2022 11/11/2022 12:17 PM CDT Rule Out COVID-19 03/07/2023 03/07/2023 03/07/2023 1:20 PM CDT Rule Out COVID-19 12/26/2023 12/26/2023 12/26/2023 9:50 AM CDT Rule Out COVID-19 04/09/2024 04/09/2024 04/10/2024 6:48 PM CDT Rule Out COVID-19 10/04/2024 10/04/2024 10/05/2024 9:42 AM CDT Assessment Noted Time PHQ-9 Depression Total Score: 9 06/25/20 20 7:04 AM DYNAMITE CARTRIDGE CRIMPER documented as of this encounter Care Teams Side Stitcher Relationship Specialty Start Date End Date Marija Edgar APRN ANTIQUER PCP - General Nurse Practitioner 04/30/20 04/14/23 Esha Grimm PA-C [address] [place] [phone] PCP - General Family Medicine 05/04/23 Lita Oseguera Personal Advocate & Liaison (PAL) 02/28/20 03/27/23 Chanelle Mccann APRN CNM [address] [address] Assigned OBGYN Provider 05/02/2005/09 Kyara De La Fuente, RN Specialty Color Buffer Neurology 06/04/20 03/05/21 Marija Edgar APRN CNP Assigned PCP 06/08/20 04/29/23 Mynor Broussard MD [address] [id number] Assigned Surgical Provider 06/01/20 11/28/21 Keisha Dotson MD 9 [place], [place] 920105 Assigned Neuroscience Provider 06/04/20 04/01/23 Mary Mejia Financial Resource Worker 08/07/20 08/21/20 Stacey Briones, [facility] Lead Color Buffer Primary Care - CC 08/11/2012/30 Lesley Guillermo, [facility] Community Health Worker 08/11/2010/01 Mary Mejia Financial Resource Worker 09/02/20 10/06/20 Lita Oseguera Personal Advocate & Liaison (PAL) Family Medicine 09/10/20 09/21/20 Galo Burrell MD Assigned Heart and Vascular Provider 10/05/20 04/02/22 Cristina Wood Financial Resource Worker 10/07/20 10/14/20 Lesley Guillermo, [facility] Community Health Worker 10/23/2012/30 Meredith Bedoya Financial Resource Worker 10/23/20 11/23/20 Cristina Wood Financial Resource Worker 02/09/21 02/09/21 Diana Desir, [facility] [address] [place] [address] Pharmacist Pharmacist 04/17/21 Rain Galaviz PA-C [address] [facility] [place] [address] Physician Waiter/Waitress Cafeteria Dermatology 04/28/21 Summer Lara MD [address] [address] [place], [place] 462344 Assigned OBGYN Provider 05/10/2105/23 Summer Lara MD [address] [place], [place] 177044 Assigned OBGYN Provider 05/31/21 Summer Lara MD [address] [place] [address] [address] [place], [place] 021434 Assigned OBGYN Provider 05/24/2105/30 Tavia Wyatt MD [address] [place], [place] 0[address] Dermatology 07/14/21 Johnny Murillo MD [address] [place] [address] Assigned Musculoskeletal Provider 08/30/21 03/17/22 Erica Farrell APRN ANTIQUER [address] [facility] [address] [place] [address] Nurse Practitioner Cardiovascular Disease 09/09/21 Teresita Bean, [facility] [address] [place] [address] Pharmacist Pharmacist 09/24/21 09/29/21 Tavia Wyatt MD [address] [place], [place] 008630 Assigned Surgical Provider 11/29/21 05/07/22 Diana Desir, [facility] [place] [address] Assigned MTM Pharmacist 01/02/22 Rich Barrett MD [facility] [place] [address] Physician Ophthalmology 01/21/22 Neil Kent MD 500 [place] [address] Dermatology 02/24/22 [place] DPM [address] [facility] 300 [place] [address] Assigned Musculoskeletal Provider 03/20/22 08/13/22 Erica Farrell APRN ANTIQUER 1700 [place] [address] Assigned Heart and Vascular Provider 04/03/22 04/16/22 Diana Desir, [facility] [place] [address] Assigned MTM Pharmacist 04/07/22 Jelena David OD [address] [facility] [address] Assigned Surgical Provider 05/08/22 10/08/22 Galo Burrell MD Assigned Heart and Vascular Provider 04/17/22 06/11/22 Livan Sharif MD [address] [facility]00 [place], [place] 363425 Cardiovascular Disease 05/14/22 Livan Sharif MD [address] [place], [place] 754475 Assigned Heart and Vascular Provider 06/12/22 07/23/22 Catherine Cm MD [address] [facility] [address] [facility]00 [place], [place] 726105 Cardiovascular Disease 07/21/22 Valery Veronica, PA-C [address] [place] [address] 029685 Physician Waiter/Waitress Cafeteria Dermatology 07/21/22 Catherine Cm MD [address] [facility]00 [place], [place] 524305 Assigned Heart and Vascular Provider 07/24/22 11/05/22 Johnny Murillo MD [facility] [address] 881894 Assigned Musculoskeletal Provider 08/14/22 10/08/22 Brea Quinn APRN ANTIQUER [address] [place] [address] Nurse Practitioner Dermatology 09/21/22 Brea Quinn APRN ANTIQUER [address] [facility] [place] [address] Assigned Surgical Provider 10/09/22 05/01/24 [place] [address] [place] [address] [address] Assigned Musculoskeletal Provider 10/09/22 05/01/24 Livan Sharif MD [address] [address] [place] [address] Assigned Heart and Vascular Provider 11/06/22 11/12/22 Catherine Cm MD [address] [address] [place] [address] Assigned Heart and Vascular Provider 11/13/22 05/27/23 Sydnie Martinez RN Personal Advocate & Liaison (PAL) Family Medicine 03/28/23 07/31/23 Alfonso Renteria MD 5775 [facility] 200 [place] [address] Assigned Neuroscience Provider 04/02/23 09/29/24 Cheng Todd PA-C [address] [place] [address] Assigned PCP 04/30/23 07/15/23 Radha Lomeli APRN ANTIQUER [address] [phone] [place] 526015 Assigned Heart and Vascular Provider 05/28/23 Jelena David OD [address] [facility] [address] MD Ophthalmology 06/15/23 Pao Joseph, RN Personal Advocate & Liaison (PAL) Nurse 08/01/23 11/07/23 Esha Grimm PA-C [address] [place] [address] Assigned PCP 07/16/23 Valery Veronica PA-C [address] [place] [address] Physician Waiter/Waitress Cafeteria Dermatology 09/19/23 Rey Tay MD [address] [place] [address] Gastroenterology 09/20/23 Rocky Zepeda DO [address] [place] [address] 986825 Physician Gastroenterology 09/20/23 Philip Dumont MD [address] [place] [address] 068395 Physician Ophthalmology 09/22/23 Meredith Carrera PA-C [address] [place] [address] 531375 Assigned Gastroenterology Provider 11/01/23 Neil Kent MD [address] 320070 Dermatology 11/02/23 [place] [address] [place] [address] Neurological Surgery 12/26/23 Audrey Waite PA-C 500 [place] [address] Physician Waiter/Waitress Cafeteria Dermatology 02/28/24 Valery Veronica PA-C 283168 [place] [address] Physician Waiter/Waitress Cafeteria Dermatology 04/10/24 Herminia Hatch MD [address] [place] [address] 83800125 Assigned Rheumatology Provider 07/02/24 Jelena David OD [address] [facility] [address] Ophthalmology 08/30/24 [place] [address] [place] [address] Assigned Neuroscience Provider 09/30/24 Maru Man PA-C [address] [place] [address] Physician Waiter/Waitress Cafeteria Dermatology 10/03/24 documented as of this encounter
--- OUTSIDE RECORDS SUMMARY | 2024-10-18 19:21 | XMS_ITS | Encounter Summary ---
Author Organization [facility] Address [address] [place] [address] Care Team Providers Care Events Assistant Name Role Phone Marija Edgar APRN INTAKE SPECIALIST Primary Care Provider + Marija Edgar APRN INTAKE SPECIALIST Unavailable [phone] Diana Desir [facility] Unavailable Rain Galaviz PA-C Unavailable Tavia Wyatt MD Unavailable Erica Farrell APRN INTAKE SPECIALIST Unavailable Rich Barrett MD Unavailable [phone] eNil Kent MD Unavailable Diana Desir [facility] Unavailable Livna Sharif MD Unavailable Catherine Cm MD Unavailable + Valery Veronica PA-C Unavailable [phone] Brea Quinn APRN INTAKE SPECIALIST Unavailable [phone] Brea Quinn APRN, CNP Unavailable Jose Francisco Johnson MD Unavailable Catherine Cm MD Unavailable + Sydnie Martinez RN Unavailable Unavailable Alfonso Renteria MD Unavailable [phone] Esha Grimm PA-C Primary Care Provider Cheng Todd PA-C Unavailable Armani Radha Stovall ARLENE INTAKE SPECIALIST Unavailable Jelena David OD Unavailable [phone] Pao Joseph RN Unavailable Unavailable sEha Grimm PA-C Unavailable [phone] Valery Veronica PA-C Unavailable [phone] Rey Tay MD Unavailable Rocky Zepeda DO Unavailable Philip Dumont MD Unavailable Meredith Carrera PA-C Unavailable Neil Kent MD Unavailable Juan Pablo Emmanuel MD Unavailable [phone] Audrey Waite PA-C Unavailable JeremíasValery damon PA-C Unavailable Herminia Hatch MD Unavailable Jelena David OD Unavailable Juan Pablo Emmanuel MD Unavailable Maru Man PA-C Unavailable Encounter Details Date Type Department Care Team (Late st Contact Info) Description 04/12/2023 [facility] [place] [facility] [address] [facility] [address] [place] [address] Livan Sharif MD [address] [facility] [address] [place] [address] Social History Tobacco Use Types Packs/Day [...] you attend [facility] or mandaeism services? 1 to 4 times [...] Date Recorded PHQ-2 Score 0 03/10/2023 [facility] ional [facility] - Occupational Stress Questionnaire Answer Date Recorded [...] slept in a residential (including now)? 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 Kim Swann, We are in [place], but asked a tech here to check the photo. He said the spot you chose is OK but he thinks we should have the [employer] check in with you as you may need to have some extra prep gelif you have have issues with the pads. We are reaching out to that [employer] team to let them know you are having some issues. Team [address] [place] [address] Sharif [phone] documented in this encounter Plan of Treatment Upcoming Encounters Date Type Department Care Team (Late st Contact Info) Description 10/22/2024 11:00 AM CDT Office Visit [facility] [place] [address] [phone] Maru Man PA-C [address] [address] 10/23/2024 PRE VISIT [facility] Neurology [facility] - [address], [facility] 450 [place] [phone] Johnny Penn MD [address] [place] 834845 Previsit 10/23/2024 9:30 AM CDT Office Visit [facility] Neurology [facility] - [address] [place] [phone] [place] [address] [place], [place] 2335[address] Johnny Penn MD [address] [place] 808345 10/24/2024 4:00 PM CDT [facility] [address] [facility] [address] [place] [phone] Jelena David, [place] 3[address] [facility] [place] [address] 10/31/2024 9:15 AM CDT Virtual Visit [facility] Gastroenterology [address] 4th [place] [phone] Meredith Carrera PA-C [address] [place] [address] 12/20/2024 2:30 PM CDT Office Visit [facility] [address] [place] [address] Esha Grimm PA-C [address] [place] [address] documented as of this encounter [...] as of this encounter Care Teams Events Assistant Relationship Specialty Start Date End Date Marija Edgar APRN INTAKE SPECIALIST PCP - General Nurse Practitioner 04/30/20 04/14/23 Esha Grimm PA-C [address] [place] [address] PCP - General Family Medicine 05/04/23 Marija Edgar APRN INTAKE SPECIALIST Assigned PCP 06/08/20 04/29/23 Diana Desir [facility] 3033 [place] [address] Pharmacist Pharmacist 04/17/21 Rain Galaviz PA-C [address] [place] [address] [address] [place] [address] Physician Fitter Placer Dermatology 04/28/21 Tavia Wyatt MD [address] [place] [address] [address] [place] [id number] Dermatology 07/14/21 Erica Farrell APRN INTAKE SPECIALIST [address] [place] 7[address]255 Nurse Practitioner Cardiovascular Disease 09/09/21 Rich Barrett MD [address] [place] 119255 Physician Ophthalmology 01/21/22 Neil Kent MD [address] [place] [address] 772195 Dermatology 02/24/22 [facility] [address] [place] [address] 762956 Assigned [place] Pharmacist 04/07/22 Livan Sharif MD [address] [place] [address] Cardiovascular Disease 05/14/22 Catherine Cm MD [address] [place] [address] Cardiovascular Disease 07/21/22 Valery Veronica PA-C [address] [place] [address] Physician Fitter Placer Dermatology 07/21/22 Brea Quinn APRN INTAKE SPECIALIST 500 [place] [address] Nurse Practitioner Dermatology 09/21/22 Brea Quinn APRN INTAKE SPECIALIST 6401 [place] [address] Assigned Surgical Provider 10/09/22 05/01/24 [place] [address] [address] Assigned Musculoskeletal Provider 10/09/22 05/01/24 Catherine Cm MD [address] 8427600 [place] [address] Assigned Heart and Vascular Provider 11/13/22 05/27/23 Sydnie Martinez RN Personal Advocate & Liaison (PAL) Family Medicine 03/28/23 07/31/23 Alfonso Renteria MD 5775 [facility] 200 [place] [address] Assigned Neuroscience Provider 04/02/23 09/29/24 Cheng Todd PA-C [address] [place] [address] [id number] Assigned PCP 04/30/23 07/15/23 Radha Lomeli APRN INTAKE SPECIALIST [address] [phone] [place] [address] Assigned Heart and Vascular Provider 05/28/23 Jelena David OD [address] [facility] [place] [address] MD Ophthalmology 06/15/23 Pao Joseph, RN Personal Advocate & Liaison (PAL) Nurse 08/01/23 11/07/23 Esha Grimm PA-C [address] [place] [address] Assigned PCP 07/16/23 Valery Veronica PA-C [address] [place] [address] Physician Fitter Placer Dermatology 09/19/23 Rey Tay MD [address] [place] [address] MD Gastroenterology 09/20/23 Rocky Zepeda DO [address] [place] [address] 063995 Physician Gastroenterology 09/20/23 Philip Dumont MD [address] [place] [address]235 Physician Ophthalmology 09/22/23 Meredith Carrera PA-C [address] [place] [address] 968735 Assigned Gastroenterology Provider 11/01/23 Neil Kent MD [address] 735010 Dermatology 11/02/23 [place] [address] [place] [address] Neurological Surgery 12/26/23 Audrey Waite PA-C 500 [place] [address] Physician Fitter Placer Dermatology 02/28/24 Valery Veronica PA-C 674678 [place] [address] Physician Fitter Placer Dermatology 04/10/24 Herminia Hatch MD [address] [place] [address] [phone] Assigned Rheumatology Provider 07/02/24 [place] [address] [place] [address] [place] [address] Ophthalmology 08/30/24 [place] [address] [place] [address] Assigned Neuroscience Provider 09/30/24 Maru Man PA-C [address] [place] [address] Physician Fitter Placer Dermatology 10/03/24 documented as of this encounter
--- OUTSIDE RECORDS SUMMARY | 2024-10-18 19:21 | XMS_ITS | Encounter Summary ---
Author Organization Center Address [address] [place] [address] Care Team Providers Care Inside Sales Person Name Role Phone Lita Oseguera Unavailable Unavailable Marija Edgar APRN DIAMOND MOUNTER Primary Care Provider + Chanelle Mccann APRN CNM Unavailab le Kyara De La Fuente RN Unavailable [phone] Marija Edgar APRN DIAMOND MOUNTER Unavailable Mynor Broussard MD Unavailable [phone] Keisha Dotson MD Unavailable [phone] Mary Mejia Unavailable Unavailable Stacey Briones EBD SPECIAL EDUCATION TEACHER Unavailable Lesley Guillermo CHW Unavailable Mary Mejia Unavailable Unavailable Lita Oseguera Unavailable Unavailable Galo Burrell MD Unavailable Unavailable Cristina Wood Unavailable Lesley Guillermo CHW Unavailable Meredith Bedoya Unavailable Unavailable Cristina Wood Unavailable Diana Desir [facility] Unavailable [phone] Ruhland, Rain Lena PA-C Unavailable Summer Lara MD Unavailable [phone] Summer Lara MD Unavailable [phone] Summer Lara MD Unavailable [phone] Tavia Wyatt MD Unavailable [phone] Johnny Murillo MD Unavailable [phone] Erica Farrell APRN DIAMOND MOUNTER Unavailable VikasTeresita H Unavailable Tavia Wyatt MD Unavailable [phone] Diana Desir [facility] Unavailable [phone] Rich Barrett MD Unavailable [phone] Neil Kent MD Unavailable Roney Story [facility] Unavailable Erica Farrell APRN DIAMOND MOUNTER Unavailable Diana Desir [facility] Unavailable [phone] Jelena David OD Unavailable Galo Burrell MD Unavailable Unavailable Livan Sharif MD Unavailable Livan Sharif MD Unavailable Catherine Cm MD Unavailable + Valery Veronica PA-C Unavailable [phone] Catherine Cm MD Unavailable + Johnny Murillo MD Unavailable +[phone] Brea Quinn APRN DIAMOND MOUNTER Unavailable [phone] GRADER OPERATOR DIAMOND MOUNTER Unavailable [phone] Jose Francisco Johnson MD Unavailable Livan Sharif MD Unavailable Catherine Cm MD Unavailable + Sydnie Martinez RN Unavailable Unavailable Alfonso Renteria MD Unavailable [phone] Esha Grimm PA-C Primary Care Provider Cheng Todd PA-C Unavailable Radha Lomeli APRN DIAMOND MOUNTER Unavailable Jelena David OD Unavailable [phone] Pao Joseph RN Unavailable Unavailable Esha Grimm PA-C Unavailable Valery Veronica PA-C Unavailable Rey Tay MD Unavailable Rocky Zepeda DO Unavailable Philip Dumont MD Unavailable Meredith Carrera PA-C Unavailable Neil Kent MD Unavailable Juan Pablo Emmanuel MD Unavailable Audrey Waite PA-C Unavailable Valery Veronica PA-C Unavailable Herminia Hatch MD Unavailable Jelena David OD Unavailable Juan Pablo Emmanuel MD Unavailable [phone] Maru Man PA-C Unavailable Encounter Details Date Type Department Care Team (Late st Contact Info) Description 08/01/2020 [facility] [address] [phone] Marija Edgar APRN DIAMOND MOUNTER [address] [place] [phone] Social History Tobacco Use Types Packs/Day Years [...] CDT Legal Sex Female 4:13 AM ROBOTIC WELDING OPERATOR Gender Identity Female 03/02/2021 5:45 PM CDT Sexual Orientation Straight 02/28/2020 12 :51 AM CDT COVID-19 Exposure Response Date Recorded In the last month, have you been in contact with someone who was confirmed or suspected to have Coronavirus / COVID-19? No / Unsure 07/30/2020 4:53 PM ROBOTIC WELDING OPERATOR documented as of this encounter Miscellaneous Notes * Telephone Encounter - Estephania Black RN - 08/01/2020 9:11 AM ROBOTIC WELDING OPERATOR Schedule patient for Zio Patch. Detailed message left on phone and through [employer]. Estephania Black RN Flex TIC WELDING OPERATOR * Telephone Encounter - Marija Edgar APRN CNP - 08/01/2020 8:46 AM ROBOTIC WELDING OPERATOR Please help patient schedule her zio patch. This order has been in place since 05/2020 and a new order was placed this week. TIC WELDING OPERATOR documented in this encounter Plan of Treatment Upcoming Encounters Date Type Department Care Team ([facility] st Contact Info) Description 10/22/2024 11:00 AM CDT Office Visit [facility] [address] [phone] Maru Man PA-C [address] [place] [address] [phone] 10/23/2024 PRE VISIT [facility] Neurology [facility] [address], [address] [place] [phone] Johnny Penn MD [address] [place] [phone] Previsit 10/23/2024 9:30 AM CDT Office Visit [facility] Neurology [facility] [address], [address] [place] [phone] [place] [address] [place], [place] [phone] Johnny Penn MD [address] [place], [place] [phone] 10/24/2024 4:00 PM CDT Office Visit [facility] [address] [place] [phone] Jelena David, [address] [facility] [place] [address] 10/31/2024 9:15 AM CDT Virtual Visit [facility] [address] [place] [phone] Meredith Carrera PA-C [address] [place] [address] [phone] 12/20/2024 2:30 PM CDT Office Visit [address] [phone] Esha Grimm PA-C [address] [place] [phone] documented as of this encounter Visit Diagnoses Not on filedocumented in this encounter Additional Health Concerns Infection Onset Date Last Indicated Resolved Time Rule Out COVID-19 08/30/2020 08/30/2020 08/30/2020 5:05 PM ROBOTIC WELDING OPERATOR Rule Out COVID-19 09/24/2020 09/24/2020 09/24/2020 9:24 AM CDT Rule Out COVID-19 11/05/2020 11/05/2020 11/06/2020 1:09 PM CDT Rule Out COVID-19 05/11/2021 05/11/2021 05/13/2021 10:18 AM CDT Rule Out COVID-19 07/13/2021 07/13/2021 07/14/2021 3:04 PM ROBOTIC WELDING OPERATOR Rule Out COVID-19 07/18/2021 07/18/2021 07/20/2021 1:56 PM ROBOTIC WELDING OPERATOR COVID-19 07/18/2021 07/18/2021 08/08/2021 11:3 9 PM ROBOTIC WELDING OPERATOR Rule Out COVID-19 12/18/2021 12/18/2021 12/19/2021 11:34 AM CDT Rule Out COVID-19 02/24/2022 02/24/2022 02/25/2022 1:08 PM CDT Rule Out COVID-19 04/26/2022 04/26/2022 04/26/2022 6:47 AM CDT Rule Out COVID-19 05/17/2022 05/17/2022 05/17/2022 10:20 PM ROBOTIC WELDING OPERATOR Rule Out COVID-19 06/09/2022 06/09/2022 06/09/2022 9:35 AM ROBOTIC WELDING OPERATOR COVID-19 06/09/2022 06/09/2022 06/30/2022 11:4 1 PM ROBOTIC WELDING OPERATOR Rule Out COVID-19 11/10/2022 11/10/2022 11/11/2022 12:17 PM CDT Rule Out COVID-19 03/07/2023 03/07/2023 03/07/2023 1:20 PM CDT Rule Out COVID-19 12/26/2023 12/26/2023 12/26/2023 9:50 AM CDT Rule Out COVID-19 04/09/2024 04/09/2024 04/10/2024 6:48 PM CDT Rule Out COVID-19 10/04/2024 10/04/2024 10/05/2024 9:42 AM CDT Assessment Noted Time PHQ-9 Depression Total Score: 9 06/25/20 20 7:04 AM ROBOTIC WELDING OPERATOR documented as of this encounter Care Teams Inside Sales Person Relationship Specialty Start Date End Date Marija Edgar APRN DIAMOND MOUNTER PCP - General Nurse Practitioner 04/30/20 04/14/23 Esha Grimm PA-C [address] [place] [phone] PCP - General Family Medicine 05/04/23 Lita Oseguera Personal Advocate & Liaison (PAL) 02/28/20 03/27/23 Chanelle Mccann APRN CNM [address] [place] [address] 200 [place] [address] Assigned OBGYN Provider 05/02/2005/09 Kyara De La Fuente, RN Specialty Desulphuring Operator Neurology 06/04/20 03/05/21 Marija Edgar APRN DIAMOND MOUNTER Assigned PCP 06/08/20 04/29/23 Mynor Broussard MD [address] [facility] 500 [place] [address] Assigned Surgical Provider 06/01/20 11/28/21 Keisha Dotson MD [address] [place], [place] [address] Assigned Neuroscience Provider 06/04/20 04/01/23 Chico Mejiara Financial Resource Worker 08/07/20 08/21/20 Stacey Briones, [facility] Lead Desulphuring Operator Primary Care - CC 08/11/2012/30 Lesley Guillermo, [facility] Community Health Worker 08/11/2010/01 NikiaMary aguirre Financial Resource Worker 09/02/20 10/06/20 Lita Oseguera Personal Advocate & Liaison (PAL) Family Medicine 09/10/20 09/21/20 Galo Burrell MD Assigned Heart and Vascular Provider 10/05/20 04/02/22 Cristina Wood Financial Resource Worker 10/07/20 10/14/20 Lesley Guillermo, [facility] Community Health Worker 10/23/2012/30 Meredith Bedoya Financial Resource Worker 10/23/20 11/23/20 Cristina Wood Financial Resource Worker 02/09/21 02/09/21 Diana Desir, [facility] [address] [place] [address] Pharmacist Pharmacist 04/17/21 Rain Galaviz PA-C [address] [place] [address] [facility] [place] [phone] Physician Glove Printer Dermatology 04/28/21 Summer Lara MD [address] [place] [address] [phone] Assigned OBGYN Provider 05/10/2105/23 Summer Lara MD [address] [facility] [place] [address] Assigned OBGYN Provider 05/31/21 2 Summer Lara MD [address] [place] [address] [place] [address] Assigned OBGYN Provider 05/24/2105/30 Tavia Wyatt MD [address] [place] [address] Dermatology 07/14/21 Johnny Murillo MD [facility] [address] [facility] [address] [place] [address] Assigned Musculoskeletal Provider 08/30/21 03/17/22 Erica Farrell APRN [facility] [address] [facility] [address] [place] [address] Nurse Practitioner Cardiovascular Disease 09/09/21 Teresita Bean [facility] [address] [place] [address] Pharmacist Pharmacist 09/24/21 09/29/21 Tavia Wyatt MD [address] [place] [address] Assigned Surgical Provider 11/29/21 05/07/22 Diana Desir, [facility] [address] [facility] [place] [address] Assigned MTM Pharmacist 01/02/22 Rich Barrett MD [address] [place] [address] Physician Ophthalmology 01/21/22 Neil Kent MD [address] [place], [place] 464[address] Dermatology 02/24/22 Roney Story DPM [address] [facility] [address] [place], [place] [address] Assigned Musculoskeletal Provider 03/20/22 08/13/22 Erica Farrell APRN DIAMOND MOUNTER [address] [place] [address] Assigned Heart and Vascular Provider 04/03/22 04/16/22 [facility] [address] [place] [address] Assigned MTM Pharmacist 04/07/22 Jelena David OD [address] [place] [address] [place] [address] Assigned Surgical Provider 05/08/22 10/08/22 Galo Burrell MD Assigned Heart and Vascular Provider 04/17/22 06/11/22 Livan Sharif MD [address] [facility] [address] [place] [address] Cardiovascular Disease 05/14/22 Livan Sharif MD [address] [facility] [address] [place] [address] Assigned Heart and Vascular Provider 06/12/22 07/23/22 Catherine Cm MD [address] [place] [phone] [place] [address] Cardiovascular Disease 07/21/22 Valery Veronica, PA-C [address] [place] [address] [phone] Physician Glove Printer Dermatology 07/21/22 Catherine Cm MD [address] [place] [phone] [place] [address] Assigned Heart and Vascular Provider 07/24/22 11/05/22 Johnny Murlilo MD [address] 479[address] Assigned Musculoskeletal Provider 08/14/22 10/08/22 Brea Quinn APRN DIAMOND MOUNTER [address] [place] [address] 751965 Nurse Practitioner Dermatology 09/21/22 Brea Quinn APRN DIAMOND MOUNTER [address] [place] [address] [place] 488302 Assigned Surgical Provider 10/09/22 05/01/24 [place] [address] [place] [address] 197447 Assigned Musculoskeletal Provider 10/09/22 05/01/24 Livan Sharif MD [address] [place] [phone] Assigned Heart and Vascular Provider 11/06/22 11/12/22 Catherine Cm MD [address] [place] [phone] Assigned Heart and Vascular Provider 11/13/22 05/27/23 Sydnie Martinez, RN Personal Advocate & Liaison (PAL) Family Medicine 03/28/23 07/31/23 Alfonso Renteria MD [address] [facility] 200 [place] [address] Assigned Neuroscience Provider 04/02/23 09/29/24 Cheng Todd PA-C [address] [place] [address] [phone] Assigned PCP 04/30/23 07/15/23 Radha Lomeli, [place] DIAMOND MOUNTER [address] [place] [address] Assigned Heart and Vascular Provider 05/28/23 Jelena David OD [address] [facility] [place] [address] Ophthalmology 06/15/23 Pao Joseph, RN Personal Advocate & Liaison (PAL) Nurse 08/01/23 11/07/23 Esha Grimm PAUcheC [address] [place] [phone] Assigned PCP 07/16/23 Valery Veronica PA-C [address] [place] [address] [phone] Physician Glove Printer Dermatology 09/19/23 Rey Tay MD [address] [place] [address] 006285 Gastroenterology 09/20/23 Rocky Zepeda DO [address] [place] [address] [phone] Physician Gastroenterology 09/20/23 Philip Dumont MD [address] [place] [address] 979115 Physician Ophthalmology 09/22/23 Meredith Carrera PA-C [address] [place] [address] Assigned Gastroenterology Provider 11/01/23 Neil Kent MD [address] [address] Dermatology 11/02/23 [place] [address] [address] [address] Neurological Surgery 12/26/23 Audrey Waite PA-C [address] [place] [address] Physician Glove Printer Dermatology 02/28/24 Valery Veronica PA-C 400888 [address] [place] [address] Physician Glove Printer Dermatology 04/10/24 Herminia Hatch MD [facility] [place] [address] Assigned Rheumatology Provider 07/02/24 Jelena David OD [address] [facility] [place] [address] Ophthalmology 08/30/24 [place] [address] [place] [address] Assigned Neuroscience Provider 09/30/24 Maru Man PA-C [address] [place] [address] Physician Glove Printer Dermatology 10/03/24 documented as of this encounter
--- OUTSIDE RECORDS SUMMARY | 2024-10-18 19:21 | XMS_ITS | Encounter Summary ---
Author Organization [place] Address [address] [place] [address] Care Team Providers Care Disposal Plant Operator Name Role Phone Lita Oseguera Unavailable Unavailable Marija Edgar APRN GYN PHYSICIAN Primary Care Provider + Marija Edgar APRN GYN PHYSICIAN Unavailable [phone] Mynor Broussard MD Unavailable [phone] Keisha Dotson MD Unavailable Galo Burrell MD Unavailable Unavailable Diana Desir [facility] Unavailable Rain Galaviz PA-C Unavailable Summer Lara MD Unavailable [phone] Tavia Wyatt MD Unavailable Johnny Murillo MD Unavailable [phone] Erica Farrell APRN GYN PHYSICIAN Unavailable Tavia Wyatt MD Unavailable Diana Desir [facility] Unavailable Rich Barrett MD Unavailable [phone] Neil Kent MD Unavailable Roney StoryM Unavailable Erica Farrell APRN GYN PHYSICIAN Unavailable Diana Desir [facility] Unavailable Jelena David OD Unavailable Galo Burrell MD Unavailable Unavailable Livan Sharif MD Unavailable Livan Sharif MD Unavailable IsCatherine hobbs MD Unavailable + Valery Veronica PA-C Unavailable [phone] Catherine Cm MD Unavailable + Johnny Murillo MD Unavailable [phone] Brea Quinn CLINICAL SERVICES SPECIALIST GYN PHYSICIAN Unavailable [phone] Brea Quinn CLINICAL SERVICES SPECIALIST GYN PHYSICIAN Unavailable [phone] Jose Francisco Johnson MD Unavailable Livan Sharif MD Unavailable + IsCatherine hobbs MD Unavailable + Sydnie Martinez RN Unavailable Unavailable Alfonso Renteria MD Unavailable Esha Grimm PA-C Primary Care Provider Cheng Todd PA-C Unavailable Radha Lomeli CLINICAL SERVICES SPECIALIST GYN PHYSICIAN Unavailable [phone] Jelena David OD Unavailable Pao Joseph RN Unavailable Unavailable Esha Grimm-C Unavailable [phone] Valery Veronica PA-C Unavailable [phone] Rey Tay MD Unavailable Rocky Zepeda DO Unavailable Philip uDmont MD Unavailable [phone] PinoMeredith paezC Unavailable [phone] Neil Kent MD Unavailable Juan Pablo Emmanuel MD Unavailable [phone] Audrey WaiteC Unavailable [phone] Valery VeronicaC Unavailable [phone] Herminia Hatch MD Unavailable Jelena David OD Unavailable Juan Pablo Emmanuel MD Unavailable [phone] Maru Man PA-C Unavailable [phone] Reason for Visit * Reason Onset Date Comments Refill Request 10/31/2021 sertraline Encounter Details Date Type Department Care Team (Late st Contact Info) Description 10/31/[address] [address] Marija Edgar APRN GYN PHYSICIAN [address] [facility] [place] [address] Refill Request (sertraline) Social History [...] How often do you attend episcopalian or buddhism serv ices? Never 09/22/2021 Do [...] Answer Date Recorded PHQ-2 Score 2 09/22/2021 [facility] [...] in a mcfp (including now)? No 09/22/2021 Holden Depression Scale Answer Date Recorded Holden Depression Score 5 01/14/2021 Last EPDS Self Harm Result Not on file 01/14 Education Answer Date Recorded What is the highest level of school you have completed or the highest degree you have received? 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 CLINICAL RESEARCH SPECIALIST Gender Identity Female 03/02/2021 5:45 [...] 11/02/2021 8:58 AM CDT Approved per [facility] CPA. Diana Desir PharmD Medication Therapy Management Provider, [facility] Pager: [phone] * Telephone Encounter - Aleyda Scott RN [...] Pt has follow up tomorrow with [facility] pharmacist to continue to work on taper. Appointments in Next Year Nov 03, 2021 3:30 PM Pharmacist Visit with Diana Desir [facility] ([facility] ) [phone] Informed patient that will route refill request [...] can be reached at: Other phone number: [phone] Best Time: ANYTIME Can we leave a detailed message on this number? YES Call taken on 10/31/2021 at 10:31 AM by Amalia Deluca documented in this encounter Plan of Treatment Upcoming Encounters Date Type Department Care Team (Late st Contact Info) Description 10/22/2024 11:00 AM CDT Office Visit [facility] [address] [phone] Maru Man PA-C [address] [address] 10/23/2024 PRE VISIT [facility] Neurology [facility] [address] [facility], [address] [place] [phone] Johnny Penn MD [address] [place] [address] Previsit 10/23/2024 9:30 AM CDT Office Visit [facility] Neurology [facility] [address] [facility], [address] [place] [phone] [place] [address] [place], [place] [address] Johnny Penn MD [address] [place] [address] 10/24/2024 4:00 PM CDT [facility] Visit [facility] [address] [facility] [address] [place] [phone] Jelena David, [address] [facility] [place] [address] 10/31/2024 9:15 AM CDT Virtual Visit [facility] Gastroenterology Clinic [address] [address] Meredith Carrera PA-C [address] [place], [place] [phone] 12/20/2024 2:30 PM CDT Office Visit [facility] [address] [place] [address] Esha Grimm PA-C [address] [place] [address] documented as of this encounter Visit Diagnoses [...] Out COVID-19 05/17/2022 05/17/2022 05/17/2022 10:20 PM CLINICAL RESEARCH SPECIALIST Rule Out COVID-19 06/09/2022 06/09/2022 06/09/2022 9:35 AM CLINICAL RESEARCH SPECIALIST COVID-19 06/09/2022 06/09/2022 06/30/2022 11:4 1 PM CLINICAL RESEARCH SPECIALIST Rule Out COVID-19 11/10/2022 11/10/2022 11/11/2022 [...] documented as of this encounter Care Teams Disposal Plant Operator Relationship Specialty Start Date End Date Marija Edgar APRN CNP PCP - General Nurse Practitioner 04/30/20 04/14/23 Esha Grimm PAUcheC [address] [place] [phone] PCP - General Family Medicine 05/04/23 Lita Oseguera Personal Advocate & Liaison (PAL) 02/28/20 03/27/23 Marija Edgar APRN GYN PHYSICIAN Assigned PCP 06/08/20 04/29/23 Mynor Broussard MD [address] [facility] 500 [place], [place] [address] Assigned Surgical Provider 06/01/20 11/28/21 Keisha Dotson MD [address] [place], [place] 9[address] Assigned Neuroscience Provider 06/04/20 04/01/23 Galo Burrell MD Assigned Heart and Vascular Provider 10/05/20 04/02/22 [facility] 3033 [place] [address] Pharmacist Pharmacist 04/17/21 Rain Galaviz PA-C [address] [place] [place] [address] [address] [place] [address] Physician Hotel General Manager Dermatology 04/28/21 Summer Lara MD [address] [place] [address] 070234 Assigned OBGYN Provider 05/31/21 2 Tavia Wyatt MD [address] [place] [address] Dermatology 07/14/21 Johnny Murillo MD [address] [address] Assigned Musculoskeletal Provider 08/30/21 03/17/22 Erica Farrell APRN GYN PHYSICIAN [address] [facility] [address] [place] [address] Nurse Practitioner Cardiovascular Disease 09/09/21 Tavia Wyatt MD [address] [place] [address] Assigned Surgical Provider 11/29/21 05/07/22 [facility] 3033 [place] [address] Assigned MTM Pharmacist 01/02/22 Rich Barrett MD [facility]3 [place] [address] Physician Ophthalmology 01/21/22 Neil Kent MD 500 [place] [address] Dermatology 02/24/22 Roney Story DPM [address] [facility] [address] [place] [address] Assigned Musculoskeletal Provider 03/20/22 08/13/22 Erica Farrell APRN GYN PHYSICIAN 1700 [place] [address] Assigned Heart and Vascular Provider 04/03/22 04/16/22 Diana Desir, [facility] [address] [place] [address] Assigned MTM Pharmacist 04/07/22 Jelena David OD [address] [facility] [place] [address] Assigned Surgical Provider 05/08/22 10/08/22 Galo Burrell MD Assigned Heart and Vascular Provider 04/17/22 06/11/22 Livan Sharif MD [address] [place] [address] Cardiovascular Disease 05/14/22 Livan Sharif MD [address] [place] [address] Assigned Heart and Vascular Provider 06/12/22 07/23/22 Catherine Cm MD [address] [place] 8[address] Cardiovascular Disease 07/21/22 Valery Veronica PA-C 909 [place], [place] 685035 Physician Hotel General Manager Dermatology 07/21/22 Catherine Cm MD [address] [place] [address] Assigned Heart and Vascular Provider 07/24/22 11/05/22 Johnny Murillo MD [address] [place] [address] Assigned Musculoskeletal Provider 08/14/22 10/08/22 Brea Quinn APRN GYN PHYSICIAN 500 [place], [place] [address] Nurse Practitioner Dermatology 09/21/22 Brea Quinn APRN GYN PHYSICIAN 6401 [facility] [place] [address]702 Assigned Surgical Provider 10/09/22 05/01/24 [place] [address] [facility] 300 [place] [address] Assigned Musculoskeletal Provider 10/09/22 05/01/24 Livan Sharif MD [address] [facility] [address] [place] 285815 Assigned Heart and Vascular Provider 11/06/22 11/12/22 Catherine Cm MD [address] [facility] [address] [place] [address] Assigned Heart and Vascular Provider 11/13/22 05/27/23 Sydnie Martinez, VJ Personal Advocate & Liaison (PAL) Family Medicine 03/28/23 07/31/23 Alfonso Renteria MD [address] [facility] 200 [place] [address] Assigned Neuroscience Provider 04/02/23 09/29/24 Cheng Todd PA-C [address] [place] [address] [phone] Assigned PCP 04/30/23 07/15/23 Radha Lomeli APRN GYN PHYSICIAN [address] [facility] [address] [place] [address] Assigned Heart and Vascular Provider 05/28/23 Jelena David OD [address] [facility] [place] [address] MD Ophthalmology 06/15/23 Pao Joseph, VJ Personal Advocate & Liaison (PAL) Nurse 08/01/23 11/07/23 Esha Grimm PA-C [address] [place] [phone] Assigned PCP 07/16/23 Valery Veronica PA-C [address] [place] [address]45 Physician Hotel General Manager Dermatology 09/19/23 Rey Tay MD [address] [place] [address] 862965 Gastroenterology 09/20/23 Rocky Zepeda DO [address] [place] [address] 265015 Physician Gastroenterology 09/20/23 Philip Dumont MD [address] [place] [address] Physician Ophthalmology 09/22/23 Meredith Carrera PA-C [address] [place] [address] Assigned Gastroenterology Provider 11/01/23 Neil Kent MD [address] [place] [address] Dermatology 11/02/23 [place] [address] [place] [address] Neurological Surgery 12/26/23 Audrey Waite PA-C [address] [place] [address] Physician Hotel General Manager Dermatology 02/28/24 Valery Veronica PA-C [address]155 [address] [place] [address] Physician Hotel General Manager Dermatology 04/10/24 Herminia Hatch MD [facility]5 [place], [place] 63793[address] Assigned Rheumatology Provider 07/02/24 Jelena David OD [address] [place] [address] [place] [address] Ophthalmology 08/30/24 [place] [address] [place] [address] Assigned Neuroscience Provider 09/30/24 Maru Man PA-C [address] [place] [address] Physician Hotel General Manager Dermatology 10/03/24 documented as of this encounter
--- OUTSIDE RECORDS SUMMARY | 2024-10-18 19:21 | XMS_ITS | Encounter Summary ---
Author Organization [place] Address [address] [place] [address] Care Team Providers Care Metal Bed Assembler Name Role Phone Marija Edgar ARLENE OFFSET PRESSMAN Unavailable Diana Desir [facility] Unavailable [phone] Rain Galaviz PA-C Unavailable [phone] Tavia Wyatt MD Unavailable Erica Farrell APRN OFFSET PRESSMAN Unavailable Rich Barrett MD Unavailable [phone] Neil Kent MD Unavailable Diana Desir [facility] Unavailable [phone] Livan Sharif MD Unavailable Catherine Cm MD Unavailable + Valery Veronica PA-C Unavailable [phone] Brea Quinn APRN OFFSET PRESSMAN Unavailable Brea Quinn APRN OFFSET PRESSMAN Unavailable Jose Francisco Johnson MD Unavailable Catherine Cm MD Unavailable + Sydnie Martinez RN Unavailable Unavailable Alfonso Renteria MD Unavailable [phone] Esha Grimm PA-C Primary Care Provider [phone] Cheng Todd PA-C Unavailable Radha Lomeli APRN OFFSET PRESSMAN Unavailable Jelena David OD Unavailable Pao Joseph RN Unavailable Unavailable Esha Grimm PA-C Unavailable [phone] Valery Veronica PA-C Unavailable Rey Tay MD Unavailable Rocky Zepeda DO Unavailable Philip Dumont MD Unavailable Meredith Carrrea PA-C Unavailable Neil Kent MD Unavailable Juan Pablo Emmanuel MD Unavailable Audrey Waite PA-C Unavailable Valery Veronica PA-C Unavailable Herminia Hatch MD Unavailable Jelena David OD Unavailable Juan Pablo Emmanuel MD Unavailable [phone] Maru Man PA-C Unavailable Encounter Details Date Type Department Care Team (Late st Contact Info) Description 04/18/2023 [facility] Advice [facility] Gastroenterology Clinic [address] [address] Mary Calvo Social History Tobacco [...] do you attend [facility] or latter day services? 1 to [...] Answer Date Recorded PHQ-2 Score 0 03/10/2023 [facility] [place] [facility] Occupat ional Health - Occupational Stress [...] in an overnight penitentiary, or couch-surfing.) Yes 04/18/2023 Are you worried [...] PM CDT Legal Sex Female 4:13 AM MAPPER Gender Identity Female 03/02/2021 5:45 PM CDT [...] Description 10/22/2024 11:00 AM CDT Office Visit [facility] [address] [phone] Maru Man PA-C [address] [address] 10/23/2024 PRE VISIT [facility] Neurology [address], [facility] 450 [place] [phone] Johnny Penn MD [address] [place] [address] Previsit 10/23/2024 9:30 AM CDT Office Visit [facility] Neurology [facility] - [address], [address] [place] [phone] [place] [address] [place] [address] Johnny Penn MD [address] [place] [address] 10/24/2024 4:00 PM CDT Office Visit [facility] [place] [address] [facility] [address] [place] [phone] Jelena David, [address] [facility] [place] [address] 10/31/2024 9:15 AM CDT Virtual Visit [facility] [address] 4th [place] [phone] Meredith Carrera PA-C 909 [place] [address] 12/20/2024 2:30 PM CDT Office Visit [facility] [address] [place] [phone] Esha Grimm PA-C [address] [place] [address] documented as of this encounter [...] as of this encounter Care Teams Metal Bed Assembler Relationship Specialty Start Date End Date Esha Grimm PA-C [address] [place] [address] PCP - General Family Medicine 05/04/23 Marija Edgar APRN CNP Assigned PCP 06/08/20 04/29/23 Diana Desir, [facility] 3033 [place] [address] Pharmacist Pharmacist 04/17/21 Rain Galaviz PA-C [address] [place] [address] [place] [address] Physician Posting Clerk Dermatology 04/28/21 Tavia Wyatt MD [address] [place] [address] [address] [facility] [place] [address] Dermatology 07/14/21 Erica Farrell APRN OFFSET PRESSMAN [address] [place] [address] Nurse Practitioner Cardiovascular Disease 09/09/21 Rich Barrett MD [address] [address] Physician Ophthalmology 01/21/22 Neil Kent MD [address] [place] [address] 562295 Dermatology 02/24/22 [facility] 3033 [place], [place] [address] Assigned [place] Pharmacist 04/07/22 Livan Sharif MD [address] [address] Cardiovascular Disease 05/14/22 Catherine Cm MD [address] [place] [address] [place], [place] 8[address] Cardiovascular Disease 07/21/22 Valery Veronica, PA-C 909 [place], [place] 9[address] Physician Posting Clerk Dermatology 07/21/22 Brea Quinn APRN OFFSET PRESSMAN 500 [place] [address] Nurse Practitioner Dermatology 09/21/22 Brea Quinn APRN OFFSET PRESSMAN 6401 [facility] [place] [address] Assigned Surgical Provider 10/09/22 05/01/24 [place] [address] [facility] 300 [place], [place] [address] Assigned Musculoskeletal Provider 10/09/22 05/01/24 Catherine Cm MD [address] [place] [address] Assigned Heart and Vascular Provider 11/13/22 05/27/23 JuanSydnie malik, RN Personal Advocate & Liaison (PAL) Family Medicine 03/28/23 07/31/23 Alfonso Renteria MD 5775 [facility] 200 [place], [place] [address] Assigned Neuroscience Provider 04/02/23 09/29/24 Cheng Todd PA-C [address] [place] [address] [phone] Assigned PCP 04/30/23 07/15/23 Radha Lomeli APRN OFFSET PRESSMAN [address] [place] [address] Assigned Heart and Vascular Provider 05/28/23 Jelena David OD [address] [facility] [place] [address] Ophthalmology 06/15/23 Pao Joseph, RN Personal Advocate & Liaison (PAL) Nurse 08/01/23 11/07/23 Esha Grimm PA-C [address] [place] [phone] Assigned PCP 07/16/23 Valery Veronica PA-C [address] [place] [address] 854455 Physician Posting Clerk Dermatology 09/19/23 Rey Tay MD [address] [place] [address] 737455 MD Gastroenterology 09/20/23 Rocky Zepeda DO [address] [place] [address] 797065 Physician Gastroenterology 09/20/23 Philip Dumont MD [address] [place] [address] 673635 Physician Ophthalmology 09/22/23 Meredith Carrera PA-C [address] [place] [address] 312015 Assigned Gastroenterology Provider 11/01/23 Neil Kent MD [address] [address] Dermatology 11/02/23 Juan Pablo [place] [address] [place] [address] [place] [address] Neurological Surgery 12/26/23 Audrey Waite PA-C 500 [place] [address] Physician Posting Clerk Dermatology 02/28/24 Valery Veronica PA-C [address]86 [address] [place] [address] Physician Posting Clerk Dermatology 04/10/24 Herminia Hatch MD [address] [place] [address] Assigned Rheumatology Provider 07/02/24 Jelena David OD [address] [place] [address] [place] [address] Ophthalmology 08/30/24 [place] [address] [place] [address] Assigned Neuroscience Provider 09/30/24 Maru Man PA-C [address] [place] [address] Physician Posting Clerk Dermatology 10/03/24 documented as of this encounter
--- OUTSIDE RECORDS SUMMARY | 2024-10-18 19:21 | XMS_ITS | Encounter Summary ---
Author Organization [facility] Address [address] [place] [address] Care Team Providers Care Hand Gluer And Slicer Name Role Phone Diana Desir [facility] Unavailable Rain Galaviz PA-C Unavailable Tavia Wyatt MD Unavailable Erica Farrell APRN CHILD DEVELOPMENT CONSULTANT Unavailable Rich Barrett MD Unavailable [phone] Neil Kent MD Unavailable DesirDiana [facility] Unavailable [phone] Livan Sharif MD Unavailable Catherine Cm MD Unavailable + Valery Veronica PA-C Unavailable Brea Quinn APRN CHILD DEVELOPMENT CONSULTANT Unavailable Brea Quinn BUSINESS MANAGER COLLEGE OR UNIVERSITY CHILD DEVELOPMENT CONSULTANT Unavailable Jose Francisco Johnson MD Unavailable Sydnie Martinez RN Unavailable Unavailable Alfonso Renteria MD Unavailable [phone] Esha Grimm PA-C Primary Care Provider [phone] Cheng Todd PA-C Unavailable Radha Lomeli APRN CHILD DEVELOPMENT CONSULTANT Unavailable Jelena David OD Unavailable Pao Joseph RN Unavailable Unavailable Esha Grimm PA-C Unavailable [phone] Valery Veronica PA-C Unavailable Rey Tay [...] (Late st Contact Info) Description 06/17/2023 Telephone [facility] [address] [place] [address] Esha Grimm PAUcheC [address] [place] [address] Appointment Social History Tobacco Use Types [...] Answer Date Recorded PHQ-2 Score 0 06/20/2023 [facility] [...] exercise at this level? 30 min 03/10/2023 [place] Depression Scale Answer Date Recorded [place] Depression Score 5 01/14/2021 Last EPDS Self [...] CDT Legal Sex Female 4:13 AM MANAGER TRANSMISSION Gender Identity Female 03/02/2021 5:45 PM CDT Sexual Orientation Straight 02/28/2020 12 :51 AM CDT documented as of this encounter Miscellaneous Notes * Telephone Encounter - Lulu Day - 06/17/2023 7:19 AM CST [facility] doesn't have anything, we are down providers and they are all full today Lulu Day/ Hot Iron Worker GER TRANSMISSION * Telephone Encounter - Rosio Eller - 06/17/2023 7:13 AM CST Reason for Call: Appointment Request Patient requesting this type of appt: follow-up breast pain Requested provider: any Reason patient unable to be scheduled: Not within requested timeframe When does patient want to be seen/preferred time: today or Tuesday Comments: patient wondering if she could be worked in [facility] Could we send this information to you in [facility] [employer] or would you prefer to receive a phone call?: Patient would prefer a phone call Okay to leave a detailed message?: Yes at Home number on file [phone] (home) Call taken on 06/17/2023 at 7:13 AM by Rosio Eller [employer]ER [employer]SMISSION documented in this encounter Plan of Treatment Upcoming Encounters Date Type Department Care Team (Late st Contact Info) Description 10/22/2024 11:00 AM CDT Office Visit [address] [phone] Maru Man PA-C [address] [place] [address] 10/23/2024 PRE VISIT [facility] Neurology [address] [phone] Johnny Penn MD [address] [facility] [place], [place] 7[address] Previsit 10/23/2024 9:30 AM CDT Office Visit [facility] Neurology [facility] - [address], [address] [phone] [place] [address] [place] [phone] Johnny Penn MD [address] [place] [place] [address] 10/24/2024 4:00 PM CDT Office Visit [facility] [place] [address] [place] [phone] Jelena David, SONJA [address] [facility] [place] [address] 10/31/2024 9:15 AM CDT Virtual Visit [facility] G[facility]ology Clinic [address] [place] [phone] Meredith Carrera PA-C [address] [place] [address] 12/20/2024 2:30 PM CDT Office Visit [facility] [address] [place] [phone] Esha Grimm PA-C [address] [place] [address] documented as of this encounter Visit Diagnoses Not on filedocumented in this encounter Additional Health Concerns Infection Onset Date Last Indicated Resolved Time Rule Out COVID-19 12/26/2023 12/26/2023 12/26/2023 9:50 AM CDT Rule Out COVID-19 04/09/2024 04/09/2024 04/10/2024 6:48 PM CDT Rule Out COVID-19 10/04/2024 10/04/2024 10/05/2024 9:42 AM CDT Assessment Noted Time PHQ-9 Depression Total Score: 6 05/16/20 9:29 AM MANAGER TRANSMISSION documented as of this encounter Care Teams Hand Gluer And Slicer Relationship Specialty Start Date End Date Esha Grimm PA-C [address] [place] [address] PCP - General Family Medicine 05/04/23 Diana Desir, [facility] [address] [place] [address] Pharmacist Pharmacist 04/17/21 Rian Galaviz PA-C [address] [place] [address] [address] [facility] [place] [address] Physician Software Programmer Dermatology 04/28/21 Tavia Wyatt MD [address] [place] [address] [place] [address] Dermatology 07/14/21 Erica Farrell APRN CHILD DEVELOPMENT CONSULTANT [address] [place] [address] Nurse Practitioner Cardiovascular Disease 09/09/21 Rich Barrett MD [address] [place] [address] Physician Ophthalmology 01/21/22 Neil Kent MD 500 [place] [address] Dermatology 02/24/22 Daina Desir, [facility] [address] [place] [address] Assigned MTM Pharmacist 04/07/22 Livan Sharif MD [address] [place] 764155 Cardiovascular Disease 05/14/22 Catherine Cm MD [address] [facility] [address] [place], [place] 093[address] Cardiovascular Disease 07/21/22 Valery Veronica PA-C 909 [place], [place] 463595 Physician Software Programmer Dermatology 07/21/22 Brea Quinn APRN CHILD DEVELOPMENT CONSULTANT [address] [place] [address] 134755 Nurse Practitioner Dermatology 09/21/22 Brea Quinn APRN CHILD DEVELOPMENT CONSULTANT 6401 [place] [address] Assigned Surgical Provider 10/09/22 05/01/24 [place] [address] [facility] 300 [place] [address] Assigned Musculoskeletal Provider 10/09/22 05/01/24 Sydnie Martinez RN Personal Advocate & Liaison (PAL) Family Medicine 03/28/23 07/31/23 Alfonso Renteria MD [address] [facility] 200 [place], [place] [address]1936 Assigned Neuroscience Provider 04/02/23 09/29/24 Cheng Todd PA-C [address] [place] [address] [phone] Assigned PCP 04/30/23 07/15/23 Radha Lomeli, ARLENE CHILD DEVELOPMENT CONSULTANT [address] [facility] [address] [place], [place] 6[address] Assigned Heart and Vascular Provider 05/28/23 Jelena David OD [address] [facility] [place] [address] MD Ophthalmology 06/15/23 Pao Joseph, VJ Personal Advocate & Liaison (PAL) Nurse 08/01/23 11/07/23 Esha Grimm PA-C [address] [place] [phone] Assigned PCP 07/16/23 Valery eVronica PA-C [address] [place] [address] 487925 Physician Software Programmer Dermatology 09/19/23 Rey Tay MD [address] [place] [address] 005275 Gastroenterology 09/20/23 Rocky Zepeda DO [address] [place] [address] 855915 Physician Gastroenterology 09/20/23 Philip Dumont MD [address] [place] [address] 728665 Physician Ophthalmology 09/22/23 Meredith Carrera PA-C [address] [place] [address] 598975 Assigned Gastroenterology Provider 11/01/23 Neil Kent MD [address] [place] [address] Dermatology 11/02/23 [place] [address] [place] [address] Neurological Surgery 12/26/23 Audrey Waite PA-C 500 [place] [address] Physician Software Programmer Dermatology 02/28/24 Valery Veronica PA-C 858907 [address] [address] Physician Software Programmer Dermatology 04/10/24 Herminia Hatch MD [address] [place] [address] Assigned Rheumatology Provider 07/02/24 Jelena David OD [address] [place] [address] [place] [address] Ophthalmology 08/30/24 [place] [address] [place] [address] Assigned Neuroscience Provider 09/30/24 Maru Man PA-C [address] [place] [address] Physician Software Programmer Dermatology 10/03/24 documented as of this encounter
--- OUTSIDE RECORDS SUMMARY | 2024-10-18 19:21 | XMS_ITS | Encounter Summary ---
Author Organization [facility] Address [address] [place] [address] Care Team Providers Care Hair Or Beauty Salon Assistant Name Role Phone Lita Oseguera Unavailable Unavailable Marija Edgar APRN CARTOGRAPHY TEACHER Primary Care Provider + Marija Edgar APRN CARTOGRAPHY TEACHER Unavailable [phone] Mynor Broussard MD Unavailable [phone] Keisha Dotson MD Unavailable Galo Burrell MD Unavailable Unavailable Diana Desir [facility] Unavailable [phone] Rain Galaviz PA-C Unavailable Summer Lara MD Unavailable [phone] Tavia Wyatt MD Unavailable Johnny Murillo MD Unavailable [phone] Erica Farrell APRN CARTOGRAPHY TEACHER Unavailable Tavia Wyatt MD Unavailable Diana Desir [facility] Unavailable Rich Barrett MD Unavailable [phone] Neil Kent MD Unavailable Roney StoryM Unavailable Erica Farrell APRN CARTOGRAPHY TEACHER Unavailable Diana Desir [facility] Unavailable Jelena David OD Unavailable Galo Burrell MD Unavailable Unavailable Livan Sharif MD Unavailable Livan Sharif MD Unavailable IsCatherine hobbs MD Unavailable + Valery Veronica PA-C Unavailable [phone] Catherine Cm MD Unavailable + Johnny Murillo MD Unavailable [phone] Brea Quinn MUD ENGINEER CARTOGRAPHY TEACHER Unavailable [phone] Brea Quinn MUD ENGINEER CARTOGRAPHY TEACHER Unavailable [phone] Jose Francisco Johnson MD Unavailable Livan Sharif MD Unavailable + IsCatherine hobbs MD Unavailable + Sydnie Martinez RN Unavailable Unavailable Alfonso Renteria MD Unavailable Esha Grimm PA-C Primary Care Provider Cheng Todd PA-C Unavailable Radha Lomeli MUD ENGINEER CARTOGRAPHY TEACHER Unavailable [phone] Jelena David OD Unavailable Pao Joseph RN Unavailable Unavailable Esha Grimm-C Unavailable [phone] Valery Veronica PA-C Unavailable [phone] Rey Tay MD Unavailable Rocky Zepeda DO Unavailable Philip Dumont MD Unavailable [phone] LoreMeredith mayersC Unavailable [phone] Neil Kent MD Unavailable Juan Pablo Emmanuel MD Unavailable [phone] Audrey WaiteC Unavailable [phone] Valery VeronicaC Unavailable [phone] Herminia Hatch MD Unavailable Jelena David OD Unavailable [phone] Juan Pablo Emmanuel MD Unavailable [phone] Maru Man PA-C Unavailable [phone] Encounter Details Date Type Department Care Team (Late st Contact Info) Description 11/16/2021 [facility] [address] [address] [facility] [address] [place] [address] Social History Tobacco Use Types Packs/Day Years [...] How often do you attend advent or bahai serv ices? Never 09/22/2021 Do [...] Answer Date Recorded PHQ-2 Score 2 09/22/2021 [facility] [...] in a assisted (including now)? No 09/22/2021 [place] Depression Scale Answer Date Recorded [place] [...] PM CDT Legal Sex Female 4:13 AM HEALTHCARE ADMINISTRATION INTERNSHIP Gender Identity Female 03/02/2021 5:45 PM [...] Description 10/22/2024 11:00 AM CDT Office Visit [facility] [address] [address] Maru Man PA-C [address] [address] 10/23/2024 PRE VISIT [facility] Neurology [place] [address] [place] [address], [address] [place] [phone] Johnny Penn MD [address] 330[address] Previsit 10/23/2024 9:30 AM CDT Office Visit [facility] Neu[facility] [address] [place] [address], [address] [place] [phone] [place] [address] [place], [place] 2584[address] Johnny Penn MD [address] [place] 34[address]65 10/24/2024 4:00 PM CDT Office Visit [facility] [address] [facility] [address] [place] [phone] Jelena David, [address] [place] [address] 10/31/2024 9:15 AM CDT Virtual Visit [facility] Gastroenterology [address] 4th [place] [phone] Meredith [place] PA-C [address] [place] [address] 066295 12/20/2024 2:30 PM CDT Office Visit [facility] [address] [place] [address] Esha Grimm PA-C [address] [place] [address] documented as of this encounter Visit Diagnoses Not on filedocumented in this encounter Additional Health Concerns Infection Onset Date Last Indicated Resolved Time Rule Out COVID-19 12/18/2021 12/18/2021 12/19/2021 11:34 AM CDT Rule Out COVID-19 02/24/2022 02/24/2022 02/25/2022 1:08 PM CDT Rule Out COVID-19 04/26/2022 04/26/2022 04/26/2022 6:47 AM CDT Rule Out COVID-19 05/17/2022 05/17/2022 05/17/2022 10:20 PM HEALTHCARE ADMINISTRATION INTERNSHIP Rule Out COVID-19 06/09/2022 06/09/2022 06/09/2022 9:35 AM HEALTHCARE ADMINISTRATION INTERNSHIP COVID-19 06/09/2022 06/09/2022 06/30/2022 11:4 1 PM HEALTHCARE ADMINISTRATION INTERNSHIP Rule Out COVID-19 11/10/2022 11/10/2022 11/11/2022 [...] documented as of this encounter Care Teams Hair Or Beauty Salon Assistant Relationship Specialty Start Date End Date Marija Edgar APRN CNP PCP - General Nurse Practitioner 04/30/20 04/14/23 Esha Grimm PA-C [address] [place] [address] PCP - General Family Medicine 05/04/23 Lita Oseguera Personal Advocate & Liaison (PAL) 02/28/20 03/27/23 Marija Edgar APRN CNP Assigned PCP 06/08/20 04/29/23 Mynor Broussard MD [address] 419[address] Assigned Surgical Provider 06/01/20 11/28/21 Keisha Dotson MD 909 [place], [place] 834165 Assigned Neuroscience Provider 06/04/20 04/01/23 Galo Burrell MD Assigned Heart and Vascular Provider 10/05/20 04/02/22 [facility] [address] [place], [place] 7[address]26 Pharmacist Pharmacist 04/17/21 Rain Galaviz PA-C [address] [facility] [address] [place] [address] Physician Veneer Gluer Dermatology 04/28/21 Summer Lara MD [address] [place], [place] [address] Assigned OBGYN Provider 05/31/21 2 Tavia Wyatt MD [address] [place], [place] [address] Dermatology 07/14/21 Johnny Murillo MD [address] [facility] [address] [place] [address] Assigned Musculoskeletal Provider 08/30/21 03/17/22 Erica Farrell APRN CARTOGRAPHY TEACHER 6[address] [facility] [address] [place] [address] Nurse Practitioner Cardiovascular Disease 09/09/21 Tavia Wyatt MD [address] [place], [place] 402380 Assigned Surgical Provider 11/29/21 05/07/22 Diana Desir, [facility] 3033 [place] [address] Assigned MTM Pharmacist 01/02/22 Rich Barrett MD 3033 [place] [address] Physician Ophthalmology 01/21/22 Neil [place] MD 500 [place] [address] Dermatology 02/24/22 Roney tSory DPM [address] [facility] [address] [place] [address] Assigned Musculoskeletal Provider 03/20/22 08/13/22 Erica Farrell APRN CARTOGRAPHY TEACHER 1700 [place] [address] Assigned Heart and Vascular Provider 04/03/22 04/16/22 Diana Desir [facility] [address] [place] [address] Assigned MTM Pharmacist 04/07/22 Jelena David OD [address] [place] [address] Assigned Surgical Provider 05/08/22 10/08/22 Galo Burrell MD Assigned Heart and Vascular Provider 04/17/22 06/11/22 Livan Sharif MD [address] [place], [place] [address] Cardiovascular Disease 05/14/22 Livan Sharif MD [address] [place] 693135 Assigned Heart and Vascular Provider 06/12/22 07/23/22 Catherine Cm MD [address] [place] 0[address]995 Cardiovascular Disease 07/21/22 Valery Veronica, PA-C 9[address] [place], [place] 917885 Physician Veneer Gluer Dermatology 07/21/22 Catherine Cm MD [address] [place] 761585 Assigned Heart and Vascular Provider 07/24/22 11/05/22 Johnny Murillo MD [facility] [address] [address] Assigned Musculoskeletal Provider 08/14/22 10/08/22 Brea Quinn APRN CARTOGRAPHY TEACHER 500 [place] [address] Nurse Practitioner Dermatology 09/21/22 Brea Quinn APRN CARTOGRAPHY TEACHER 64[address] [facility] [place] [address] Assigned Surgical Provider 10/09/22 05/01/24 [place] [address] [facility] 300 [place] [address] Assigned Musculoskeletal Provider 10/09/22 05/01/24 Livan Sharif MD 6405 [facility] [address] [place] [address] Assigned Heart and Vascular Provider 11/06/22 11/12/22 Catherine Cm MD [address] [facility] [address] [place] [address] Assigned Heart and Vascular Provider 11/13/22 05/27/23 Sydnie Martinez RN Personal Advocate & Liaison (PAL) Family Medicine 03/28/23 07/31/23 Alfonso Renteria MD 5775 [facility] 200 [place], [place] [address]456 Assigned Neuroscience Provider 04/02/23 09/29/24 Cheng Todd PA-C [address] [place] [address] [id number] Assigned PCP 04/30/23 07/15/23 Radha Lomeli APRN CNP [address] [place] [address] Assigned Heart and Vascular Provider 05/28/23 Jelena David OD [address] [place] [address] MD Ophthalmology 06/15/23 Pao Joseph, RN Personal Advocate & Liaison (PAL) Nurse 08/01/23 11/07/23 Esha Grimm PA-C [address] [place] [phone] Assigned PCP 07/16/23 Valery Veronica PA-C [address] [place] [address] 085625 Physician Veneer Gluer Dermatology 09/19/23 Rey Tay MD [address] [place] [address] 444685 Gastroenterology 09/20/23 Rocky Zepeda DO [address] [place] [address] 412105 Physician Gastroenterology 09/20/23 Philip Dumont MD [address] [place] [address] 865395 Physician Ophthalmology 09/22/23 Meredith Carrera PA-C [address] [place] [address] 861805 Assigned Gastroenterology Provider 11/01/23 Neil Kent MD [address] [place] [address] MD Dermatology 11/02/23 [place] [address] [facility] [address] [place] [address] Neurological Surgery 12/26/23 Audrey Waite PA-C 500 [place] [address] Physician Veneer Gluer Dermatology 02/28/24 Valery Veronica PA-C 324979 [address] [place] [address] Physician Veneer Gluer Dermatology 04/10/24 Herminia Hatch MD [address] [place] [address] [id number] Assigned Rheumatology Provider 07/02/24 Jelena David OD [address] [place] [address] [place] [address] Ophthalmology 08/30/24 [place] [address] [place] [address] Assigned Neuroscience Provider 09/30/24 Maru Man PA-C [address] [place] [address] Physician Veneer Gluer Dermatology 10/03/24 documented as of this encounter
--- OUTSIDE RECORDS SUMMARY | 2024-10-18 19:21 | XMS_ITS | Encounter Summary ---
Author Organization [place] Address [address] [place] [address] Care Team Providers Care B2B Outside Sales Representative Name Role Phone Lita Oseguera Unavailable Unavailable Marija Edgar APRN FIRE PREVENTION BUREAU CAPTAIN Primary Care Provider + Marija Edgar APRN FIRE PREVENTION BUREAU CAPTAIN Unavailable [phone] Mynor Broussard MD Unavailable [phone] Keisha Dotson MD Unavailable Galo Burrell MD Unavailable Unavailable Diana Desir [facility] Unavailable Rain Galaviz PA-C Unavailable Summer Lara MD Unavailable [phone] Tavia Wyatt MD Unavailable Johnny Murillo MD Unavailable Erica Farrell APRN FIRE PREVENTION BUREAU CAPTAIN Unavailable Tavia Wyatt MD Unavailable Diana Desir [facility] Unavailable Rich Barrett MD Unavailable [phone] Neil Kent MD Unavailable Roney StoryM Unavailable Erica Farrell APRN FIRE PREVENTION BUREAU CAPTAIN Unavailable Diana Desir [facility] Unavailable Jelena David OD Unavailable Galo Burrell MD Unavailable Unavailable Livan Sharif MD Unavailable Livan Sharif MD Unavailable IsCatherine hobbs MD Unavailable + Valery Veronica PA-C Unavailable [phone] Catherine Cm MD Unavailable + Johnny Murillo MD Unavailable [phone] Brea Quinn OUTREACH ASSOCIATE FIRE PREVENTION BUREAU CAPTAIN Unavailable [phone] Brea Quinn OUTREACH ASSOCIATE FIRE PREVENTION BUREAU CAPTAIN Unavailable [phone] Jose Francisco Johnson MD Unavailable Livan Sharif MD Unavailable + IsCatherine hobbs MD Unavailable + Sydnie Martinez RN Unavailable Unavailable Alfonso Renteria MD Unavailable Esha Grimm PA-C Primary Care Provider Chneg Todd PA-C Unavailable Radha Lomeli OUTREACH ASSOCIATE FIRE PREVENTION BUREAU CAPTAIN Unavailable [phone] Jelena David OD Unavailable Pao Joseph RN Unavailable Unavailable Esha Grimm-C Unavailable Valery Veronica PA-C Unavailable [phone] Rey Tay MD Unavailable Rocky Zepeda DO Unavailable Philip Dumont MD Unavailable [phone] LoreMeredith mayersC Unavailable [phone] eNil Kent MD Unavailable Juan Pablo Emmanuel MD Unavailable [phone] Audrey WaiteC Unavailable [phone] Valery VeronicaC Unavailable [phone] Herminia Hatch MD Unavailable Jelena David OD Unavailable [phone] Juan Pablo Emmanuel MD Unavailable [phone] Maru Man PA-C Unavailable [phone] Encounter Details Date Type Department Care Team (Late st Contact Info) Description 10/17/2021 [facility] Medical Advice [address] [address] [facility] 30[address] [place] [address] Social History Tobacco Use Types Packs/Day Years [...] How often do you attend restoration or sabianism serv ices? Never 09/22/2021 Do [...] Answer Date Recorded PHQ-2 Score 2 09/22/2021 [facility] [...] in a penitentiary (including now)? No 09/22/2021 Jackson Depression Scale Answer Date Recorded Jackson [...] PM CDT Legal Sex Female 4:13 AM NITROGLYCERIN NEUTRALIZER Gender Identity Female 03/02/2021 5:45 PM CDT [...] Description 10/22/2024 11:00 AM CDT Office Visit [facility] [address] [phone] Maru Man PA-C [address] [address] 10/23/[address] [facility] Neurology [address], [address] [place] [phone] Johnny Penn MD [address] [place] [address] Previsit 10/23/2024 9:30 AM CDT Office Visit [facility] Neurology [address], [address] [place] [phone] [place] [address] [place], [place] 52[address] Johnny Penn MD [address] [place] 334925 10/24/2024 4:00 PM CDT Office Visit [facility] 3305 [facility] [address] [place] [phone] Jelena David, [address] [place] [address] 10/31/2024 9:15 AM CDT Virtual Visit [facility] Gastroenterology Clinic [address] 4th [place] [phone] Meredith Carrera PA-C [address] [place] [address] 579425 12/20/2024 2:30 PM CDT Office Visit [facility] [address] [place] [address] Esha Grimm PA-C [address] [place] [address] documented as of this encounter Visit Diagnoses Not on filedocumented in this encounter Additional Health Concerns Infection Onset Date Last Indicated Resolved Time Rule Out COVID-19 12/18/2021 12/18/2021 12/19/2021 11:34 AM CDT Rule Out COVID-19 02/24/2022 02/24/2022 02/25/2022 1:08 PM CDT Rule Out COVID-19 04/26/2022 04/26/2022 04/26/2022 6:47 AM CDT Rule Out COVID-19 05/17/2022 05/17/2022 05/17/2022 10:20 PM NITROGLYCERIN NEUTRALIZER Rule Out COVID-19 06/09/2022 06/09/2022 06/09/2022 9:35 AM NITROGLYCERIN NEUTRALIZER COVID-19 06/09/2022 06/09/2022 06/30/2022 11:4 1 PM NITROGLYCERIN NEUTRALIZER Rule Out COVID-19 11/10/2022 11/10/2022 11/11/2022 12:17 [...] documented as of this encounter Care Teams B2B Outside Sales Representative Relationship Specialty Start Date End Date Marija Edgar APRN FIRE PREVENTION BUREAU CAPTAIN PCP - General Nurse Practitioner 04/30/20 04/14/23 Esha Grimm PA-C [address] [place] [phone] PCP - General Family Medicine 05/04/23 Lita Oseguera Personal Advocate & Liaison (PAL) 02/28/20 03/27/23 Marija Edgar APRN FIRE PREVENTION BUREAU CAPTAIN Assigned PCP 06/08/20 04/29/23 Mynor Broussard MD 6363 [facility] 500 [place], [place] 7[address]85 Assigned Surgical Provider 06/01/20 11/28/21 Keisha Dotson MD 909 [place], [place] 451855 Assigned Neuroscience Provider 06/04/20 04/01/23 Galo Burrell MD Assigned Heart and Vascular Provider 10/05/20 04/02/22 [facility] [address] [place] [address] Pharmacist Pharmacist 04/17/21 Rain Galaviz PA-C 5 [facility] [address] [place] [address] Physician Railroad Maintenance Clerk Dermatology 04/28/21 Summer Lara MD [address] [place] [address] [phone] Assigned OBGYN Provider 05/31/21 2 Tavia Wyatt MD [address] [place], [place] 540884 Dermatology 07/14/21 Johnny Murillo MD [address] [place], [place] 0834[address] [place] [address] Assigned Musculoskeletal Provider 08/30/21 03/17/22 Erica Farrell APRN FIRE PREVENTION BUREAU CAPTAIN 6405 [facility] [address] [place] [address] Nurse Practitioner Cardiovascular Disease 09/09/21 Tavia Wyatt MD [address] [place], [place] 391790 Assigned Surgical Provider 11/29/21 05/07/22 Diana Desir, [facility] 3033 [place] [address] Assigned MTM Pharmacist 01/02/22 Rich Barrett MD 3033 [place] [address] Physician Ophthalmology 01/21/22 Neil Kent MD 500 [place] [address] Dermatology 02/24/22 Roney Story DPM 313[address] [facility] [address] [place] [address] Assigned Musculoskeletal Provider 03/20/22 08/13/22 Erica Farrell APRN FIRE PREVENTION BUREAU CAPTAIN 1700 [place] [address] Assigned Heart and Vascular Provider 04/03/22 04/16/22 Diana Desir [facility] [address] [place] [address] Assigned MTM Pharmacist 04/07/22 Jelena David OD 3305 [facility] [place] [address] Assigned Surgical Provider 05/08/22 10/08/22 Galo Burrell MD Assigned Heart and Vascular Provider 04/17/22 06/11/22 Livan Sharif MD [address] [place] 404675 Cardiovascular Disease 05/14/22 Livan Sharif MD [address] [place] 612315 Assigned Heart and Vascular Provider 06/12/22 07/23/22 Catherine Cm MD [address] [place] 471675 Cardiovascular Disease 07/21/22 Valery Veronica, PA-C 909 [place], [place] 719655 Physician Railroad Maintenance Clerk Dermatology 07/21/22 Catherine Cm MD [address] [place] 379165 Assigned Heart and Vascular Provider 07/24/22 11/05/22 Johnny Murillo MD [facility] [address] [place] [address] 364684 Assigned Musculoskeletal Provider 08/14/22 10/08/22 Brea Quinn APRN FIRE PREVENTION BUREAU CAPTAIN 500 [place] [address] Nurse Practitioner Dermatology 09/21/22 Brea Quinn APRN FIRE PREVENTION BUREAU CAPTAIN 6401 [place] [address] Assigned Surgical Provider 10/09/22 05/01/24 [place] [address] [address] Assigned Musculoskeletal Provider 10/09/22 05/01/24 Livan Sharif MD 6405 [facility] [address] [place] [address] Assigned Heart and Vascular Provider 11/06/22 11/12/22 Catherine Cm MD 6405 [facility] [address] [place] [address] Assigned Heart and Vascular Provider 11/13/22 05/27/23 Sydnie Martinez RN Personal Advocate & Liaison (PAL) Family Medicine 03/28/23 07/31/23 Alfonso Renteria MD 5775 [facility] 200 [place], [place] 983516 Assigned Neuroscience Provider 04/02/23 09/29/24 Cheng Todd PA-C [address] [place] [address] [phone] Assigned PCP 04/30/23 07/15/23 Radha Lomeli APRN FIRE PREVENTION BUREAU CAPTAIN 6405 [facility] [address] [address] [place] [address] Assigned Heart and Vascular Provider 05/28/23 Jelena David OD [address] [place] [address] MD Ophthalmology 06/15/23 Pao Joseph, VJ Personal Advocate & Liaison (PAL) Nurse 08/01/23 11/07/23 Esha Grimm PA-C [address] [place] [phone] Assigned PCP 07/16/23 Valery Veronica PA-C [address] [place] [address] 073085 Physician Railroad Maintenance Clerk Dermatology 09/19/23 Rey Tay MD [address] [place] [address] 564075 Gastroenterology 09/20/23 Rocky Zepeda DO [address] [place] [address] 395665 Physician Gastroenterology 09/20/23 Philip Dumont MD [address] [place] [address] 752595 Physician Ophthalmology 09/22/23 Meredith Carrera PA-C [address] [place] [address] [phone] Assigned Gastroenterology Provider 11/01/23 Neil Kent MD [address] [place] [address] MD Dermatology 11/02/23 [place] [address] [place] [address] Neurological Surgery 12/26/23 Audrey Waite PA-C 500 [place] [address] Physician Railroad Maintenance Clerk Dermatology 02/28/24 Valery Veronica PA-C 847125 [place], [place] [address] Physician Railroad Maintenance Clerk Dermatology 04/10/24 Herminia Hatch MD [address] [place] [address] [phone] Assigned Rheumatology Provider 07/02/24 Jelena David OD [address] [place] [address] [place] [address] Ophthalmology 08/30/24 [place] [address] [place] [address] Assigned Neuroscience Provider 09/30/24 Maru Man PA-C [address] [place] [address] Physician Railroad Maintenance Clerk Dermatology 10/03/24 documented as of this encounter
--- OUTSIDE RECORDS SUMMARY | 2024-10-18 19:21 | XMS_ITS | Encounter Summary ---
Author Organization [place] Address [address] [place] [address] Care Team Providers Care Credit Verifier Name Role Phone Lita Oseguera Unavailable Unavailable Marija Edgar APRN PARACHUTE LINE TIER Primary Care Provider + Marija Edgar APRN PARACHUTE LINE TIER Unavailable Keisha Dotson MD Unavailable Galo Burrell MD Unavailable Unavailable Diana Desir [facility] Unavailable [phone] Rain Galaviz PA-C Unavailable Summer Lara MD Unavailable Tavia Wyatt MD Unavailable Johnny Murillo MD Unavailable Erica Farrell APRN PARACHUTE LINE TIER Unavailable Tavia Wyatt MD Unavailable Diana Desir [facility] Unavailable Rich Barrett MD Unavailable [phone] Neil Kent MD Unavailable Roney Story DPM Unavailable Erica Farrell APRN PARACHUTE LINE TIER Unavailable Diana Desir [facility] Unavailable [phone] Jelena David OD Unavailable [phone] Galo Burrell MD Unavailable Unavailable HoLivan MD Unavailable Livan Sharif MD Unavailable IsCatherine hobbs MD Unavailable + Valery Veronica PA-C Unavailable [phone] Catherine Cm MD Unavailable + Johnny Murillo MD Unavailable [phone] Brea Quinn REFINERY OPERATOR REFORMING UNIT PARACHUTE LINE TIER Unavailable [phone] Brea Quinn REFINERY OPERATOR REFORMING UNIT PARACHUTE LINE TIER Unavailable [phone] Jose Francisco Johnson MD Unavailable Livan Sharif MD Unavailable + IsCatherine boothe MD Unavailable + Sydnie Martinez RN Unavailable Unavailable Alfonso Renteria MD Unavailable Esha Grimm PA-C Primary Care Provider Cheng Todd PA-C Unavailable Radha Lomeli REFINERY OPERATOR REFORMING UNIT PARACHUTE LINE TIER Unavailable [phone] Jelena David OD Unavailable Pao Joseph RN Unavailable Unavailable Esha Grimm PA-C Unavailable [phone] Valery Veronica PA-C Unavailable [phone] Rey Tay MD Unavailable Rocky Zepeda DO Unavailable Philip Dumont MD Unavailable [phone] Meredith Carrera PA-C Unavailable Neil Kent MD Unavailable Juan Pablo Emmanuel MD Unavailable [phone] Audrey Waite PA-C Unavailable [phone] Valery Veronica PA-C Unavailable [phone] Herminia Hatch MD Unavailable Jelena David OD Unavailable Juan Pablo Emmanuel MD Unavailable [phone] Maru Man PA-C Unavailable [phone] Encounter Details Date Type Department Care Team (Late st Contact Info) Description 12/18/[address] [facility] [address] [place] [phone] Lauren Claudio PA-C [address] [place] [address] Social History [...] How often do you attend mosque or hoahaoism serv ices? Never 09/22/2021 Do [...] Answer Date Recorded PHQ-2 Score 2 12/18/2021 [facility] [...] in a fdc (including now)? No 09/22/2021 Alabaster Depression Scale Answer Date Recorded Alabaster Depression Score 5 01/14/2021 Last EPDS Self Harm Result Not on file 01/14 Education Answer Date Recorded What is the highest level of school you have completed or the highest degree you have received? 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 No / Unsure 12/18/2021 2:40 PM CDT documented as of this encounter Miscellaneous Notes * Telephone Encounter - Amalia Deluca Adam - [...] be reached at: Home number on file [phone] (home) Best Time: ANYTIME Can we leave a detailed message on this number? YES Call taken on 12/18/2021 at 11:01 AM by Amalia Deluca documented in this encounter Plan of Treatment Upcoming Encounters Date Type Department Care Team (Late st Contact Info) Description 10/22/2024 11:00 AM CDT Office Visit [facility] [address] [phone] Maru Man PA-C [address] [address] 10/23/2024 PRE VISIT [facility] Neurology [facility] - [address], [address] [place] [phone] Johnny Penn MD 6200 [facility] [place] 5486[address] Previsit 10/23/2024 9:30 AM CDT Office Visit [facility] Neurology [facility] - [address], [address] [place] [phone] [place] [address] [place] [address]34[address] Johnny Penn MD [address] [place] 470695 10/24/2024 4:00 PM CDT Office Visit [facility] [place] [address] [facility] [address] [place] [phone] Jelena David, 3305 [facility] [place] [address] 10/31/2024 9:15 AM CDT Virtual Visit [facility] Gastroenterology Clinic [place] [address]79 [facility] [address] 4th [place] [phone] Meredith Carrera PA-C 9 [place] [address] 12/20/2024 2:30 PM CDT Office Visit [facility] [address] [place] [address] Esha Grimm PA-C [address] [place] [address] documented as of this encounter Visit Diagnoses Not on filedocumented in this encounter Additional Health Concerns Infection Onset Date Last Indicated Resolved Time Rule Out COVID-19 12/18/2021 12/18/2021 12/19/2021 11:34 AM CDT Rule Out COVID-19 02/24/2022 02/24/2022 02/25/2022 1:08 PM CDT Rule Out COVID-19 04/26/2022 04/26/2022 04/26/2022 6:47 AM CDT Rule Out COVID-19 05/17/2022 05/17/2022 05/17/2022 10:20 PM STAMPING DIE TRY OUT WORKER Rule Out COVID-19 06/09/2022 06/09/2022 06/09/2022 9:35 AM STAMPING DIE TRY OUT WORKER COVID-19 06/09/2022 06/09/2022 06/30/2022 11:4 1 PM STAMPING DIE TRY OUT WORKER Rule Out COVID-19 11/10/2022 11/10/2022 11/11/2022 12:17 PM CDT Rule Out COVID-19 03/07/2023 03/07/2023 03/07/2023 1:20 PM CDT Rule Out COVID-19 12/26/2023 12/26/2023 12/26/2023 9:50 AM CDT Rule Out COVID-19 04/09/2024 04/09/2024 04/10/2024 6:48 PM CDT Rule Out COVID-10/04/2024 10/04/2024 10/05/2024 9:42 AM CDT Assessment Noted Time PHQ-9 Depression Total Score: 2 12/19/19 2:50 PM CDT documented as of this encounter Care Teams Credit Verifier Relationship Specialty Start Date End Date Marija Edgar APRN PARACHUTE LINE TIER PCP - General Nurse Practitioner 04/30/20 04/14/23 Esha Grimm PA-C [address] [place] [phone] PCP - General Family Medicine 05/04/23 Lita Oseguera Personal Advocate & Liaison (PAL) 02/28/20 03/27/23 Marija Edgar APRN PARACHUTE LINE TIER Assigned PCP 06/08/20 04/29/23 Keisha Dotson MD 909 [place], [place] 639525 Assigned Neuroscience Provider 06/04/20 04/01/23 Galo Burrell MD Assigned Heart and Vascular Provider 10/05/20 04/02/22 Diana Desir, [facility] [address] [place] [address] Pharmacist Pharmacist 04/17/21 Rain Galaviz PA-C [address] [place] [address] [place] [address] Physician Broach Setter Dermatology 04/28/21 Summer Lara MD [address] [place] [address] Assigned OBGYN Provider 05/31/21 2 Tavia Wyatt MD [address] [place] [address] Dermatology 07/14/21 Johnny Murillo MD [address] [place] [address] Assigned Musculoskeletal Provider 08/30/21 03/17/22 Erica Farrell APRN PARACHUTE LINE TIER 6405 [facility] [address] [place] [address] Nurse Practitioner Cardiovascular Disease 09/09/21 Tavia Wyatt MD [address] [place] [address] Assigned Surgical Provider 11/29/21 05/07/22 [facility] 3033 [place] [address] Assigned MTM Pharmacist 01/02/22 Rich Barrett MD [address] [place] [address] Physician Ophthalmology 01/21/22 Neil Kent MD 500 [place], [place] [address] Dermatology 02/24/22 Roney Story DPM [address] [facility] 300 [place], [place] 70125337 Assigned Musculoskeletal Provider 03/20/22 08/13/22 Erica Farrell APRN PARACHUTE LINE TIER 1700 [place] [address] Assigned Heart and Vascular Provider 04/03/22 04/16/22 [facility] 3033 [facility] [place] [address] Assigned MTM Pharmacist 04/07/22 Jelena David OD [address] [facility] [place] [address] Assigned Surgical Provider 05/08/22 10/08/22 Galo Burrell MD Assigned Heart and Vascular Provider 04/17/22 06/11/22 Livan Sharif MD [address] [place], [place] [address] Cardiovascular Disease 05/14/22 Livan Sharif MD [address] [place] [address] Assigned Heart and Vascular Provider 06/12/22 07/23/22 Catherine Cm MD [address] [place] 269385 Cardiovascular Disease 07/21/22 Valery Veronica, PAUcheC 909 [place] [address] Physician Broach Setter Dermatology 07/21/22 Catherine Cm MD 6405 [facility] [address] [place] 548185 Assigned Heart and Vascular Provider 07/24/22 11/05/22 Johnny Murillo MD [address] 186[address] Assigned Musculoskeletal Provider 08/14/22 10/08/22 Brea Quinn APRN PARACHUTE LINE TIER 500 [place], [place] 217565 Nurse Practitioner Dermatology 09/21/22 Brea Quinn APRN PARACHUTE LINE TIER 6401 [facility] [place] 030722 Assigned Surgical Provider 10/09/22 05/01/24 [place] [address] [place] [address] 829207 Assigned Musculoskeletal Provider 10/09/22 05/01/24 Livan Sharif MD 6405 [facility] [facility] [address] [place] 729585 Assigned Heart and Vascular Provider 11/06/22 11/12/22 Catherine Cm MD [address] [facility] [address] [place] 283425 Assigned Heart and Vascular Provider 11/13/22 05/27/23 Sydnie Martinez RN Personal Advocate & Liaison (PAL) Family Medicine 03/28/23 07/31/23 Alfonso Renteria MD 5775 [facility] [address] [place] [address] Assigned Neuroscience Provider 04/02/23 09/29/24 Cheng Todd PA-C [address] [place] [address] Assigned PCP 04/30/23 07/15/23 Radha Lomeli, ARLENE PARACHUTE LINE TIER 6405 [facility] [address] [place], [place] 824035 Assigned Heart and Vascular Provider 05/28/23 Jelena David OD [address] [facility] [place] [address] Ophthalmology 06/15/23 Pao Joseph, VJ Personal Advocate & Liaison (PAL) Nurse 08/01/23 11/07/23 Esha Grimm PA-C [address] [place] [phone] Assigned PCP 07/16/23 Valery Veronica PA-C [address] [place] [address] Physician Broach Setter Dermatology 09/19/23 Rey Tay MD [address] [place] [address] 703525 Gastroenterology 09/20/23 Rocky Zepeda DO [address] [place] [address] 053755 Physician Gastroenterology 09/20/23 Philip Dumont MD 516 [place] [address] Physician Ophthalmology 09/22/23 Meredith Carrera PA-C [address] [place] [address] Assigned Gastroenterology Provider 11/01/23 Neil Kent MD [address] [address] Dermatology 11/02/23 [place] [address] [place], [place] 6567[address] Neurological Surgery 12/26/23 Audrey Waite PA-C 500 [place] [address] Physician Broach Setter Dermatology 02/28/24 Valery Veronica PA-C 160126 [place] [address] Physician Broach Setter Dermatology 04/10/24 Herminia Hatch MD [address] [place] [address] [phone] Assigned Rheumatology Provider 07/02/24 Jelena David OD [address] [place] [address] [place] [address] Ophthalmology 08/30/24 [place] [address] [place] [address] Assigned Neuroscience Provider 09/30/24 Maru Man PA-C [address] [place] [address] Physician Broach Setter Dermatology 10/03/24 documented as of this encounter
--- OUTSIDE RECORDS SUMMARY | 2024-10-18 19:21 | XMS_ITS | Encounter Summary ---
Author Organization [place] Address [address] [place] [address] Care Team Providers Care Fax Machine Repairer Name Role Phone Lita Oseguera Unavailable Unavailable Marija Edgar APRN CLINICAL FELLOW Primary Care Provider + Chanelle Mccann APRN CNM Unavailab le Kyara De La Fuente RN Unavailable [phone] Marija Edgar APRN CLINICAL FELLOW Unavailable Mynor Broussard MD Unavailable [phone] Keisha Dotson MD Unavailable Mary Mejia Unavailable Unavailable Stacey Briones DISTRICT MANAGER PRIMARY CARE SALES Unavailable [phone] Lesley Guillermo CHW Unavailable Mary Mejia Unavailable Unavailable Lita Oseguera Unavailable Unavailable Galo Burrell MD Unavailable Unavailable Cristina Wood Unavailable Lesley Guillermo CHW Unavailable Meredith Bedoya Unavailable Unavailable Cristina Wood Unavailable Diana Desir [facility] Unavailable Ruhland, Rain Lena PA-C Unavailable Summer Lara MD Unavailable [phone] Summer Lara MD Unavailable [phone] Summer Lara MD Unavailable [phone] Tavia Wyatt MD Unavailable [phone] Johnny Murillo MD Unavailable [phone] Erica Farrell APRN CLINICAL FELLOW Unavailable VikasTeresita H Unavailable Tavia Wyatt MD Unavailable [phone] Diana Desir [facility] Unavailable [phone] Rich Barrett MD Unavailable [phone] Neil Kent MD Unavailable Roney Story [facility] Unavailable Erica Farrell APRN CLINICAL FELLOW Unavailable Diana Desir [facility] Unavailable [phone] Jel[place] David OD Unavailable Galo Burrell MD Unavailable Unavailable Livan Sharif MD Unavailable Livan Sharif MD Unavailable Catherine Cm MD Unavailable + Valery Veronica PA-C Unavailable [phone] Catherine Cm MD Unavailable + Johnny Murillo MD Unavailable +[phone] Brea Quinn APRN CLINICAL FELLOW Unavailable [phone] Brea Quinn LUMP ROLLER CLINICAL FELLOW Unavailable [phone] Jose Francisco Johnson MD Unavailable Livan Sharif MD Unavailable Catherine Cm MD Unavailable + Sydnie Martinez RN Unavailable Unavailable Alfonso Renteria MD Unavailable [phone] Esha Grimm PA-C Primary Care Provider Cheng Todd PA-C Unavailable Radha Lomeli APRN CLINICAL FELLOW Unavailable Jelena David OD Unavailable [phone] Pao Joseph RN Unavailable Unavailable Esha Grimm PA-C Unavailable [phone] Valery Veronica PA-C Unavailable Rey Tay [...] Contact Info) Description 07/29/2020 MyC Medical Advice [facility] [address], [address] [place] [address] Keisha Dotson MD [address] [place] [address] Social History Tobacco Use Types Packs/Day Years [...] PM CDT Legal Sex Female 4:13 AM BRAIDER TENDER Gender Identity Female 03/02/2021 5:45 PM CDT Sexual Orientation Straight 02/28/2020 12 :51 AM CDT COVID-19 Exposure Response Date Recorded In the last month, have you been in contact with someone who was confirmed or suspected to have Coronavirus / COVID-19? No / Unsure 07/30/2020 4:53 PM BRAIDER TENDER documented as of this encounter Plan of Treatment Upcoming Encounters Date Type Department Care Team (Late st Contact Info) Description 10/22/2024 11:00 AM CDT Office Visit [address] [phone] Maru Man PA-C [address] [place] [address] 10/23/2024 PRE VISIT [facility] Neurology [facility] - [address] [phone] Johnny Penn MD [address] [facility] [place], [place] [address] Previsit 10/23/2024 9:30 AM CDT Office Visit [facility] Neurology [facility] - [address], [address] [address] [place] [address] [place] [address] Johnny Penn MD [address] [place] [address] 10/24/2024 4:00 PM CDT Office Visit [facility] [address] [place] [phone] Jelena David, OD [address] [facility] [place] [address] 10/31/2024 9:15 AM CDT Virtual Visit [facility] Gastroenterology Clinic [address] [place] [phone] Meredith Carrera PA-C [address] [place] [address] 12/20/2024 2:30 PM CDT Office Visit [facility] [address] [place] [phone] Esha Grimm PA-C [address] [place] [phone] documented as of this encounter Visit Diagnoses Not on filedocumented in this encounter Additional Health Concerns Infection Onset Date Last Indicated Resolved Time Rule Out COVID-19 07/30/2020 07/30/2020 07/30/2020 7:11 PM BRAIDER TENDER Rule Out COVID-19 08/30/2020 08/30/2020 08/30/2020 5:05 PM BRAIDER TENDER Rule Out COVID-19 09/24/2020 09/24/2020 09/24/2020 9:24 AM CDT Rule Out COVID-19 11/05/2020 11/05/2020 11/06/2020 1:09 PM CDT Rule Out COVID-19 05/11/2021 05/11/2021 05/13/2021 10:18 AM CDT Rule Out COVID-19 07/13/2021 07/13/2021 07/14/2021 3:04 PM BRAIDER TENDER Rule Out COVID-19 07/18/2021 07/18/2021 07/20/2021 1:56 PM BRAIDER TENDER COVID-19 07/18/2021 07/18/2021 08/08/2021 11:3 9 PM BRAIDER TENDER Rule Out COVID-19 12/18/2021 12/18/2021 12/19/2021 11:34 AM CDT Rule Out COVID-19 02/24/2022 02/24/2022 02/25/2022 1:08 PM CDT Rule Out COVID-19 04/26/2022 04/26/2022 04/26/2022 6:47 AM CDT Rule Out COVID-19 05/17/2022 05/17/2022 05/17/2022 10:20 PM BRAIDER TENDER Rule Out COVID-19 06/09/2022 06/09/2022 06/09/2022 9:35 AM BRAIDER TENDER COVID-19 06/09/2022 06/09/2022 06/30/2022 11:4 1 PM BRAIDER TENDER Rule Out COVID-19 11/10/2022 11/10/2022 11/11/2022 12:17 PM CDT Rule Out COVID-19 03/07/2023 03/07/2023 03/07/2023 1:20 PM CDT Rule Out COVID-19 12/26/2023 12/26/2023 12/26/2023 9:50 AM CDT Rule Out COVID-19 04/09/2024 04/09/2024 04/10/2024 6:48 PM CDT Rule Out COVID-19 10/04/2024 10/04/2024 10/05/2024 9:42 AM CDT Assessment Noted Time PHQ-9 Depression Total Score: 9 06/25/20 20 7:04 AM BRAIDER TENDER documented as of this encounter Care Teams Fax Machine Repairer Relationship Specialty Start Date End Date Marija Edgar APRN CLINICAL FELLOW PCP - General Nurse Practitioner 04/30/20 04/14/23 Esha Grimm PA-C [address] [place] [phone] PCP - General Family Medicine 05/04/23 Lita Oseguera Personal Advocate & Liaison (PAL) 02/28/20 03/27/23 [place] [address] [address] [facility] 200 [place], [place] 513077 Assigned OBGYN Provider 05/02/2005/09 Kyara De La Fuente, RN Specialty Inclusion Intern Neurology 06/04/20 03/05/21 Marija Edgar APRN CLINICAL FELLOW Assigned PCP 06/08/20 04/29/23 Mynor Broussard MD 6[address] [facility] 500 [place] [address] Assigned Surgical Provider 06/01/20 11/28/21 Keisha Dotson MD 909 [place], [place] 659835 Assigned Neuroscience Provider 06/04/20 04/01/23 Mary Mejia Financial Resource Worker 08/07/20 08/21/20 Stacey Briones, DISTRICT MANAGER PRIMARY CARE SALES Lead Inclusion Intern Primary Care - CC 08/11/2012/30 Lesley Guillermo, W Community Health Worker 08/11/2010/01 Mary Mejia Financial Resource Worker 09/02/20 10/06/20 Lita Oseguera Personal Advocate & Liaison (PAL) Family Medicine 09/10/20 09/21/20 Galo Burrell MD Assigned Heart and Vascular Provider 10/05/20 04/02/22 Cristina Wood Financial Resource Worker 10/07/20 10/14/20 Lesley Guillermo, [facility] Community Health Worker 10/23/2012/30 Meredith Bedoya Financial Resource Worker 10/23/20 11/23/20 Cristina Wood Financial Resource Worker 02/09/21 02/09/21 Diana Desir, [facility] [address] [place], [place] [address]206 Pharmacist Pharmacist 04/17/21 Rain Galaviz PA-C [address] [place] [address] [address] [place], [place] [phone] Physician Contract Negotiator Dermatology 04/28/21 Summer Lara MD [address] [place] [address] 659394 Assigned OBGYN Provider 05/10/2105/23 Summer Lara MD [address] [place] [address] 185054 Assigned OBGYN Provider 05/31/21 Summer Lara MD [address] [place] [address] Assigned OBGYN Provider 05/24/2105/30 Tavia Wyatt MD [address] [place] [address] Dermatology 07/14/21 Johnny Murillo MD [address] [place] [address] Assigned Musculoskeletal Provider 08/30/21 03/17/22 Erica Farrell APRN CLINICAL FELLOW [address] [facility] [address] [place] [address] Nurse Practitioner Cardiovascular Disease 09/09/21 Teresita Bean, [facility] [address] [place] [phone] Pharmacist Pharmacist 09/24/21 09/29/21 Tavia Wyatt MD [address] [place], [place] 195750 Assigned Surgical Provider 11/29/21 05/07/22 Diana Desir, [facility] [address] [place] [address] Assigned MTM Pharmacist 01/02/22 Rich Barrett MD [address] [place] [address] Physician Ophthalmology 01/21/22 Neil Kent MD 500 [place] [address] Dermatology 02/24/22 Roney Story DPM [address] [facility] [address] [place] [address] Assigned Musculoskeletal Provider 03/20/22 08/13/22 Erica Farrell APRN CLINICAL FELLOW [address] [place] [address] Assigned Heart and Vascular Provider 04/03/22 04/16/22 [facility] [address] [facility] [place] [place] [address] Assigned MTM Pharmacist 04/07/22 Jelena David OD [address] [facility] [place] [address] Assigned Surgical Provider 05/08/22 10/08/22 Galo Burrell MD Assigned Heart and Vascular Provider 04/17/22 06/11/22 Livan Sharif MD [address] [place] [address] Cardiovascular Disease 05/14/22 Livan Sharif MD [address] [place] [address] Assigned Heart and Vascular Provider 06/12/22 07/23/22 Catherine Cm MD [address] [place] 823965 Cardiovascular Disease 07/21/22 Valery Veronica PAUcheC [address] [place], [place] 847875 Physician Contract Negotiator Dermatology 07/21/22 Catherine Cm MD [address] 5614400 [place] [address] Assigned Heart and Vascular Provider 07/24/22 11/05/22 Johnny Murillo MD [address] [place] [address] Assigned Musculoskeletal Provider 08/14/22 10/08/22 Brea Quinn APRN CLINICAL FELLOW [address] [place] [address] Nurse Practitioner Dermatology 09/21/22 Brea Quinn APRN CLINICAL FELLOW [address] [place] [address] Assigned Surgical Provider 10/09/22 05/01/24 [place] [address] [place] [address] Assigned Musculoskeletal Provider 10/09/22 05/01/24 Livan Sharif MD [address] [phone] [place] [address] Assigned Heart and Vascular Provider 11/06/22 11/12/22 Catherine Cm MD [address] [phone] [place] [address] Assigned Heart and Vascular Provider 11/13/22 05/27/23 Juan, Sydnie M, RN Personal Advocate & Liaison (PAL) Family Medicine 03/28/23 07/31/23 Alfonso Renteria MD 5775 [facility] 200 [place] [address] Assigned Neuroscience Provider 04/02/23 09/29/24 Cheng Todd PA-C [address] [place] [address] Assigned PCP 04/30/23 07/15/23 Radha Lomeli APRN CLINICAL FELLOW [address] [phone] [place] [address] Assigned Heart and Vascular Provider 05/28/23 Jelena David OD [address] [facility] [place] [address] Ophthalmology 06/15/23 Pao Joseph RN Personal Advocate & Liaison (PAL) Nurse 08/01/23 11/07/23 Esha Grimm PA-C [address] [place] [phone] Assigned PCP 07/16/23 Valery Veronica PA-C [address] [place] [address] 246225 Physician Contract Negotiator Dermatology 09/19/23 Rey Tay MD [address] [place] [address] 607045 Gastroenterology 09/20/23 Rocky Zepeda DO [address] [place] [address] Physician Gastroenterology 09/20/23 Philip Dumont MD [address] [place] [address] 330035 Physician Ophthalmology 09/22/23 Meredith Carrera PA-C [address] [place] [address] 366115 Assigned Gastroenterology Provider 11/01/23 Niel [place] MD [address] 461050 MD Dermatology 11/02/23 [place] [address] [place], [place] 266577 Neurological Surgery 12/26/23 Audrey Waite PA-C 500 [place], [place] 710415 Physician Contract Negotiator Dermatology 02/28/24 Valery Veronica PA-C 968490 [place], [place] [address] Physician Contract Negotiator Dermatology 04/10/24 Herminia Hatch MD [address] [place] [address] [phone] Assigned Rheumatology Provider 07/02/24 [place] [address] [place] [address] [place] [address] Ophthalmology 08/30/24 [place] [address] [place] [address] [address] Assigned Neuroscience Provider 09/30/24 Maru Man PA-C [address] [address] Physician Contract Negotiator Dermatology 10/03/24 documented as of this encounter
--- OUTSIDE RECORDS SUMMARY | 2024-10-18 19:22 | XMS_ITS | Encounter Summary ---
Author Organization [facility] Address [address] [place] [address] Care Team Providers Care Customs And Border Protection Inspector Name Role Phone Marija Edgar APRN EMBEDDED SYSTEM[employer] SOFTWARE ENGINEER Primary Care Provider + Marija Edgar APRN EMBEDDED SYSTEMS SOFTWARE ENGINEER Unavailable [phone] Kesiha Dotson MD Unavailable Diana Desir [facility] Unavailable Rain Galaviz PA-C Unavailable Tavia Wyatt MD Unavailable Erica Farrell APRN EMBEDDED SYSTEM[employer] SOFTWARE ENGINEER Unavailable Rich Barrett MD Unavailable [phone] Neil Kent MD Unavailable Diana Desir [facility] Unavailable Livan Sharif MD Unavailable Catherine Cm MD Unavailable + Valery Veronica PA-C Unavailable Brea Quinn APRN EMBEDDED SYSTEM[employer] SOFTWARE ENGINEER Unavailable Brea Quinn PEARL RESTORER EMBEDDED SYSTEMS SOFTWARE ENGINEER Unavailable Jose Francisco Johnson MD Unavailable Catherine Cm MD Unavailable + Sydnie Martinez RN Unavailable Unavailable Alfonso Renteria MD Unavailable [phone] Esha Grimm PA-C Primary Care Provider Cheng Todd PA-C Unavailable Radha Lomeli APRN EMBEDDED SYSTEMS SOFTWARE ENGINEER Unavailable Jelena David OD Unavailable Pao Joseph RN Unavailable Unavailable Esha Grimm PA-C Unavailable [phone] Valery Veronica PA-C Unavailable Rey Tay [...] Team (Late st Contact Info) Description 03/29/2023 [facility] [address] [address] Diana Desir, [facility] [address] [place] [address] Social History Tobacco Use Types Packs/Day Years [...] Date Recorded PHQ-2 Score 0 03/10/2023 [facility] - Occupational Stress Questionnaire Answer Date [...] in a jail (including now)? No 03/10/2023 Sturkie Depression Scale Answer Date Recorded Stur[place] Depression Score 5 01/14/2021 Last EPDS Self Harm Result Not on file 01/14 Education Answer Date Recorded What is the highest level of school you have completed or the highest degree you have received? 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 OTOLARYNGOLOGY NURSE Gender Identity Female 03/02/2021 5:45 PM [...] Description 10/22/2024 11:00 AM CDT Office Visit [address] [phone] Maru Man PA-C [address] 455[address] 10/23/2024 PRE VISIT [facility] Neurology [address] [phone] Johnny Penn MD [address] [place] [address]035 Previsit 10/23/2024 9:30 AM CDT Office Visit [facility] Neurology [address], [address] [place] [phone] [place] [address] [address] [place] [address] Johnny Penn MD [address] [place] 269125 10/24/2024 4:00 PM CDT Office Visit [address] [place] [phone] Frankie Jelena Garcia, [place] [address] [facility] [place] [address] 10/31/2024 9:15 AM CDT Virtual Visit [facility] Gastroenterology Clinic [address] 4th [place] [phone] Meredith Carrera PA-C [address] [place] [address] 12/20/2024 2:30 PM CDT Office Visit [facility] [address] [place] [address] Esha Grimm PA-C [address] [place] [phone] documented as of this encounter Visit [...] documented as of this encounter Care Teams Customs And Border Protection Inspector Relationship Specialty Start Date End Date Marija Edgar APRN CNP PCP - General Nurse Practitioner 04/30/20 04/14/23 Esha Grimm PA-C [address] [place] [address] PCP - General Family Medicine 05/04/23 Marija Edgar APRN EMBEDDED SYSTEMS SOFTWARE ENGINEER Assigned PCP 06/08/20 04/29/23 Keisha Dotson MD [address] [place] [address] Assigned Neuroscience Provider 06/04/20 04/01/23 Diana Desir, [facility] [address] [place] [address] Pharmacist Pharmacist 04/17/21 Rain Galaviz PA-C [address] [place] [address] [address] [place] [address] Physician Community Relations Representative Dermatology 04/28/21 Tavia Wyatt MD [address] [place] [address] [address] [facility] [place] [address] Dermatology 07/14/21 Erica Farrell APRN EMBEDDED SYSTEMS SOFTWARE ENGINEER [address] [place] [address] Nurse Practitioner Cardiovascular Disease 09/09/21 Rich Barrett MD [address] [place] 214145 Physician Ophthalmology 01/21/22 Neil Kent MD 500 [place] [address] Dermatology 02/24/22 [facility] 30[address] [place] [address] Assigned MTM Pharmacist 04/07/22 Livan Sharif MD [address] [place] [address] Cardiovascular Disease 05/14/22 Catherine Cm MD [address] [place] 375[address] Cardiovascular Disease 07/21/22 Valery Veronica, PA-C [address] [place] [address] 668205 Physician Community Relations Representative Dermatology 07/21/22 Brea Quinn APRN EMBEDDED SYSTEMS SOFTWARE ENGINEER 500 [place] [address] Nurse Practitioner Dermatology 09/21/22 Brea Quinn APRN EMBEDDED SYSTEMS SOFTWARE ENGINEER [address] [place] [address] Assigned Surgical Provider 10/09/22 05/01/24 [place] [address] [place] [address] Assigned Musculoskeletal Provider 10/09/22 05/01/24 Catherine Cm MD [address] [place] 117855 Assigned Heart and Vascular Provider 11/13/22 05/27/23 Sydnie Martinez RN Personal Advocate & Liaison (PAL) Family Medicine 03/28/23 07/31/23 Alfonso Renteria MD [address] [facility] [address] [place] [address] Assigned Neuroscience Provider 04/02/23 09/29/24 Cheng Todd PA-C [address] [place] [address] Assigned PCP 04/30/23 07/15/23 Radha Lomeli APRN EMBEDDED SYSTEMS SOFTWARE ENGINEER [address] [facility] [address] [place] [address] Assigned Heart and Vascular Provider 05/28/23 Jelena David OD [address] [facility] [address] Ophthalmology 06/15/23 Pao Joseph, VJ Personal Advocate & Liaison (PAL) Nurse 08/01/23 11/07/23 Esha Grimm PA-C [address] [place] [phone] Assigned PCP 07/16/23 Valery Veronica PA-C [address] [place] [address] 060595 Physician Community Relations Representative Dermatology 09/19/23 Rey Tay MD [address] [place] [address] Gastroenterology 09/20/23 Rocky Zepeda DO [address] [place] [address] Physician Gastroenterology 09/20/23 Philip Dumont MD [address] [place] [address] Physician Ophthalmology 09/22/23 Meredith Carrera PA-C [address] [place] [address] Assigned Gastroenterology Provider 11/01/23 Neil Kent MD [address] [place] [address] MD Dermatology 11/02/23 [place] [address] [place] [address] Neurological Surgery 12/26/23 Audrey Waite PA-C [address] [place] [address] Physician Community Relations Representative Dermatology 02/28/24 Valery Veronica PA-C [id number] [place] [address] Physician Community Relations Representative Dermatology 04/10/24 Herminia Hatch MD [facility]5 [place], [place] [id number] Assigned Rheumatology Provider 07/02/24 [place] [address] [place] [address] [place] [address] Ophthalmology 08/30/24 [place] [address] [address] Assigned Neuroscience Provider 09/30/24 Maru Man PA-C [address] [address] Physician Community Relations Representative Dermatology 10/03/24 documented as of this encounter
--- OUTSIDE RECORDS SUMMARY | 2024-10-18 19:22 | XMS_ITS | Encounter Summary ---
Author Organization [facility] Address [address] [place] [address] Care Team Providers Care Safety Lead Name Role Phone Liat Oseguera Unavailable Unavailable Marija Edgar APRN CASE OPERATOR Primary Care Provider + Marija Edgar APRN CASE OPERATOR Unavailable Mynor Broussard MD Unavailable [phone] Keisha Dotson MD Unavailable [phone] Galo Burrell MD Unavailable Unavailable Diana Desir [facility] Unavailable Rain Galaviz PA-C Unavailable Summer Lara MD Unavailable [phone] Tavia Wyatt MD Unavailable Johnny Murillo MD Unavailable Erica Farrell APRN CASE OPERATOR Unavailable Teresita Bean [facility] Unavailable Tavia Wyatt MD Unavailable Diana Desir [facility] Unavailable [phone] Rich Barrett MD Unavailable [phone] Neil Kent MD Unavailable Roney Story DPM Unavailable Erica Farrell AERONAUTICAL DESIGN ENGINEER CASE OPERATOR Unavailable Diana Desir [facility] Unavailable [phone] Jelena David OD Unavailable Galo Burrell MD Unavailable Unavailable Livan Sharif MD Unavailable + Livan Sharif MD Unavailable + Catherine Cm MD Unavailable + Valery Veronica PA-C Unavailable [phone] Catherine Cm MD Unavailable + Johnny Murillo MD Unavailable [phone] Brea Quinn AERONAUTICAL DESIGN ENGINEER CASE OPERATOR Unavailable [phone] Brea Quinn AERONAUTICAL DESIGN ENGINEER CASE OPERATOR Unavailable [phone] Jose Francisoc Johnson MD Unavailable Livan Sharif MD Unavailable + IsCatherine hobbs MD Unavailable + Sydnie Martinez RN Unavailable Unavailable Alfonso Renteria MD Unavailable Esha Grimm-C Primary Care Provider Cheng Todd PA-C Unavailable Radha Lomeli AERONAUTICAL DESIGN ENGINEER CASE OPERATOR Unavailable [phone] Jelena David OD Unavailable Pao Joseph RN Unavailable Unavailable Esha Grimm-C Unavailable [phone] JeremíasValery damon PA-C Unavailable [phone] Rey Tay MD Unavailable Rocky Zepeda DO Unavailable Philip Dumont MD Unavailable [phone] Meredith CarreraC Unavailable [phone] Neil Kent MD Unavailable Juan Pablo Emmanuel MD Unavailable [phone] Audrey WaiteC Unavailable [phone] Valery VeronicaC Unavailable [phone] Herminia Hatch MD Unavailable Jelena David OD Unavailable Juan Pablo Emmanuel MD Unavailable [phone] Maru Man PA-C Unavailable [phone] Encounter Details Date Type Department Care Team [...] you attend chur ch or evangelical services? More than 4 times [...] Answer Date Recorded PHQ-2 Score 0 04/02/2021 [facility] [...] health care facility (including now)? No 08/11/2020 [place] Depression Scale Answer Date Recorded [place] Depression Score 5 01/14/2021 Last EPDS Self Harm Result Not on file 01/14 Education Answer Date Recorded What is the highest level of school you have completed or the highest degree you have received? 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 ACCOUNTS RECEIVABLE SPECIALIST Gender Identity Female 03/02/2021 5:45 PM CDT Sexual Orientation Straight 02/28/2020 12 :51 AM CDT COVID-19 Exposure Response Date Recorded In the last month, have you been in contact with someone who was confirmed or suspected to have Coronavirus / COVID-19? No / Unsure 09/02/2021 12:26 PM ACCOUNTS RECEIVABLE SPECIALIST documented as of this encounter Plan of Treatment Upcoming Encounters Date Type Department Care Team (Late st Contact Info) Description 10/22/2024 11:00 AM CDT Office Visit [address] [phone] Maru Man PA-C [address] [place] [address] 10/23/2024 PRE VISIT [facility] Neurology [facility] - [address], [address] [place] [address] IsamarJohnny farnsworth MD [address] [place] [address] Previsit 10/23/2024 9:30 AM CDT Office Visit [facility] Neurology [facility] [address] [facility], [address] [place] [phone] [place] [address] [place] [address] Johnny Penn MD [address] [place] [phone] 10/24/2024 4:00 PM CDT Office Visit [facility] [address] [place] [phone] Jelena David, [address] [facility] [place] [address] 10/31/2024 9:15 AM CDT Virtual Visit [facility] Gastroenterology [address] [phone] Meredith Carrera PA-C [address] [place] [address] 12/20/2024 2:30 PM CDT Office Visit [facility] [address] [place] [address] Esha Grimm PA-C [address] [place] [address] documented as of this encounter Visit Diagnoses Not on filedocumented in this encounter Additional Health Concerns Infection Onset Date Last Indicated Resolved Time Rule Out COVID-19 12/18/2021 12/18/2021 12/19/2021 11:34 AM CDT Rule Out COVID-19 02/24/2022 02/24/2022 02/25/2022 1:08 PM CDT Rule Out COVID-19 04/26/2022 04/26/2022 04/26/2022 6:47 AM CDT Rule Out COVID-19 05/17/2022 05/17/2022 05/17/2022 10:20 PM ACCOUNTS RECEIVABLE SPECIALIST Rule Out COVID-19 06/09/2022 06/09/2022 06/09/2022 9:35 AM ACCOUNTS RECEIVABLE SPECIALIST COVID-19 06/09/2022 06/09/2022 06/30/2022 11:4 1 PM ACCOUNTS RECEIVABLE SPECIALIST Rule Out COVID-19 11/10/2022 11/10/2022 11/11/2022 [...] as of this encounter Care Teams Safety Lead Relationship Specialty Start Date End Date Marija Edgar APRN CASE OPERATOR PCP - General Nurse Practitioner 04/30/20 04/14/23 Esha Grimm PA-C [address] [place] [address] PCP - General Family Medicine 05/04/23 Lita Oseguera Personal Advocate & Liaison (PAL) 02/28/20 03/27/23 Marija Edgar APRN CASE OPERATOR Assigned PCP 06/08/20 04/29/23 Mynor Broussard MD [address] [facility] 500 [place] [address] Assigned Surgical Provider 06/01/20 11/28/21 Keisha Dotson MD 909 [place] [address] Assigned Neuroscience Provider 06/04/20 04/01/23 Galo Burrell MD Assigned Heart and Vascular Provider 10/05/20 04/02/22 [facility] [address] [place] [address] Pharmacist Pharmacist 04/17/21 Rain Galaviz PA-C [address] [place] [address] [address] [place] [address] Physician Commissary Helper Dermatology 04/28/21 Summer Lara MD [address] [place] [address] [phone] Assigned OBGYN Provider 05/31/21 2 Tavia Wyatt MD [address] [place] [address] [phone] Dermatology 07/14/21 Johnny Murillo MD [facility] [address] [facility] [address] [place], [place] 6737[address] Assigned Musculoskeletal Provider 08/30/21 03/17/22 Erica Farrell APRN CASE OPERATOR [address] [facility] [address] [place] [address] Nurse Practitioner Cardiovascular Disease 09/09/21 Teresita Bean, [facility] [address] [place] [phone] Pharmacist Pharmacist 09/24/21 09/29/21 Tavia Wyatt MD [address] [place] [address] Assigned Surgical Provider 11/29/21 05/07/22 [facility] 3033 [place] [address] Assigned MTM Pharmacist 01/02/22 Rich Barrett MD [facility]3 [place] [address] Physician Ophthalmology 01/21/22 Neil Kent MD 500 [place] [address] Dermatology 02/24/22 Roney Story DPM [address] [facility] 300 [place], [place] 173617 Assigned Musculoskeletal Provider 03/20/22 08/13/22 Erica Farrell APRN CASE OPERATOR 1700 [place] [address] Assigned Heart and Vascular Provider 04/03/22 04/16/22 Diana Desir, [facility] [address] [place], [place] 559066 Assigned MTM Pharmacist 04/07/22 Jelena David OD [address] [facility] [place] [address] Assigned Surgical Provider 05/08/22 10/08/22 Galo Burrell MD Assigned Heart and Vascular Provider 04/17/22 06/11/22 Livan Sharif MD [address] [place], [place] 4[address] Cardiovascular Disease 05/14/22 Livan Sharif MD [address] [place], [place] 9[address] Assigned Heart and Vascular Provider 06/12/22 07/23/22 Catherine Cm MD [address] [place] [address] Cardiovascular Disease 07/21/22 Valery Veronica, PA-C 909 [place] [address] Physician Commissary Helper Dermatology 07/21/22 Catherine Cm MD [address] [place], [place] 2069[address] Assigned Heart and Vascular Provider 07/24/22 11/05/22 Johnny Murillo MD [address] [place] [address] Assigned Musculoskeletal Provider 08/14/22 10/08/22 Brea Quinn APRN CASE OPERATOR [address] [place] [address] Nurse Practitioner Dermatology 09/21/22 Brea Quinn APRN CASE OPERATOR 6401 [facility] [place], [place] 8[address] Assigned Surgical Provider 10/09/22 05/01/24 [place] [address] [facility] 300 [place], [place] 318947 Assigned Musculoskeletal Provider 10/09/22 05/01/24 Livan Sharif MD [address] [facility] [address] [place] [address] Assigned Heart and Vascular Provider 11/06/22 11/12/22 Catherine Cm MD [address] [facility] [address] [place] [address] Assigned Heart and Vascular Provider 11/13/22 05/27/23 Sydnie Martinez RN Personal Advocate & Liaison (PAL) Family Medicine 03/28/23 07/31/23 Alfonso Renteria MD [address] [facility] 200 [place] [address] Assigned Neuroscience Provider 04/02/23 09/29/24 Cheng Todd PA-C [address] [place] [address] Assigned PCP 04/30/23 07/15/23 Radha Lomeli APRN CASE OPERATOR [address] [facility] [address] [place] [address] Assigned Heart and Vascular Provider 05/28/23 Jelena David OD [address] [facility] [place] [address] MD Ophthalmology 06/15/23 Pao Joseph, VJ Personal Advocate & Liaison (PAL) Nurse 08/01/23 11/07/23 Esha Grimm PA-C [address] [place] [phone] Assigned PCP 07/16/23 Valery Veronica PA-C [address] [place] [address] 028595 Physician Commissary Helper Dermatology 09/19/23 Rey Tay MD [address] [place] [address] 026615 Gastroenterology 09/20/23 Rocky Zepeda DO [address] [place] [address] 447435 Physician Gastroenterology 09/20/23 Philip Dumont MD [address] [place] [address] 257805 Physician Ophthalmology 09/22/23 Meredith Carrera PA-C [address] [place] [address] Assigned Gastroenterology Provider 11/01/23 Neil Kent MD [address] [place] [address] Dermatology 11/02/23 [place] [address] [place] [address] Neurological Surgery 12/26/23 Audrey Waite PA-C [address] [place] [address] Physician Commissary Helper Dermatology 02/28/24 Valery Veronica PA-C [address] [place] [address] Physician Commissary Helper Dermatology 04/10/24 Herminia Hatch MD [address] [place] [address] [phone] Assigned Rheumatology Provider 07/02/24 Jelena David OD [address] [place] [address] [place] [address] Ophthalmology 08/30/24 [place] [address] [place] [address] Assigned Neuroscience Provider 09/30/24 Maru Man PA-C [address] [place] [address] Physician Commissary Helper Dermatology 10/03/24 documented as of this encounter
--- OUTSIDE RECORDS SUMMARY | 2024-10-18 19:22 | XMS_ITS | Encounter Summary ---
Author Organization [facility] Address [address] [place] [address] Care Team Providers Care Interior Decorator Painting Name Role Phone Diana Desir [facility] Unavailable Rain Galaviz PA-C Unavailable [phone] Tavia Wyatt MD Unavailable [phone] Erica Farrell APRN STRAPPER OPERATOR Unavailable Rich Barrett MD Unavailable [phone] Neil Kent MD Unavailable Diana Desir [facility] Unavailable Livan Sharif MD Unavailable Catherine Cm MD Unavailable + Valery Veronica PA-C Unavailable Brea Quinn ORGAN BUILDER STRAPPER OPERATOR Unavailable Brea Quinn ORGAN BUILDER STRAPPER OPERATOR Unavailable Jose Francisco Johnson MD Unavailable Alfonso Renteria MD Unavailable [phone] Esha Grimm PA-C Primary Care Provider Radha Lomeli APRN STRAPPER OPERATOR Unavailable Jelena David OD Unavailable Esha Grimm PA-C Unavailable [phone] Valery Veronica PA-C Unavailable Rey Tay MD Unavailable Duane Rocky DO Unavailable Philip Dumont MD Unavailable Meredith Carrera PA-C Unavailable Neil Kent MD Unavailable Juan Pablo Emmanuel MD Unavailable Audrey Wiate PA-C Unavailable [phone] JeremíasValery damon PA-C Unavailable [phone] Herminia Hatch MD Unavailable Jelena David OD Unavailable Juan Pablo Emmanuel MD Unavailable Maru Man PA-C Unavailable Encounter Details Date Type Department Care Team (Late st Contact Info) Description 02/27/2024 MyC Medical Advice [facility] [address] [address] Ebony Cid APRN STRAPPER OPERATOR 500 [place] [address] Social History Tobacco Use Types [...] Score 1 02/07/2024 [facility] [...] at this level? 30 min 03/10/2023 [place] Depression Scale Answer Date Recorded [place] Depression Score 5 01/14/2021 Last EPDS Self [...] PM CDT Legal Sex Female 4:13 AM MONUMENT SETTER HELPER Gender Identity Female 03/02/2021 5:45 PM CDT Sexual Orientation Straight 02/28/2020 12 :51 AM CDT documented as of this encounter Plan of Treatment Upcoming Encounters Date Type Department Care Team (Late st Contact Info) Description 10/22/2024 11:00 AM CDT Office Visit [facility] [address] [address] Maru Man PA-C [address] [address] 10/23/2024 PRE VISIT [facility] - [address], [address] [place] [phone] Johnny Penn MD [address] [place] 618[address] Previsit 10/23/2024 9:30 AM CDT Office Visit [facility] - Deputy [address] [facility], [address] [place] [phone] [place] [address] [place], [place] [address] Johnny Penn MD [address] [place] 114995 10/24/2024 4:00 PM CDT Office Visit [facility] [address] [facility] [address] [place] [phone] Jelena David, [address] [facility] [place] [address] 10/31/2024 9:15 AM CDT Virtual Visit [facility] [address] 4th [place] [phone] Meredith Carrera PA-C [address] [place] [address] 392475 12/20/2024 2:30 PM CDT Office [facility] [address] [place] [address] Esha Grimm PA-C [address] [place] [address] documented as of this encounter [...] as of this encounter Care Teams Interior Decorator Painting Relationship Specialty Start Date End Date Esha Grimm PA-C [address] [place] [address] PCP - General Family Medicine 05/04/23 Diana Desir, [facility] [address] [place] [address] Pharmacist Pharmacist 04/17/21 Rain Galaviz PA-C [address] [place] [address] [address] [place] [address] Physician Wet Pan Operator Dermatology 04/28/21 Tavia Wyatt MD [address] [place] [address] [address] [place] [address] Dermatology 07/14/21 Erica Farrell APRN STRAPPER OPERATOR [address] [place] [address] Nurse Practitioner Cardiovascular Disease 09/09/21 Rich Barrett MD [address] [place] [address] Physician Ophthalmology 01/21/22 Neil Kent MD 500 [place] [address] Dermatology 02/24/22 [facility] [address] [place] [address] Assigned [place] Pharmacist 04/07/22 Livan Sharif MD [address] [place] [place] 2907800 [place] [address] Cardiovascular Disease 05/14/22 Catherine Cm MD [address] [address] Cardiovascular Disease 07/21/22 Valery Veronica, PA-C 909 [place] [address] Physician Wet Pan Operator Dermatology 07/21/22 Brea Quinn APRN STRAPPER OPERATOR 500 [place] [address] Nurse Practitioner Dermatology 09/21/22 Brea Quinn APRN STRAPPER OPERATOR [address] [place] [address] Assigned Surgical Provider 10/09/22 05/01/24 [place] [address] [address] Assigned Musculoskeletal Provider 10/09/22 05/01/24 Alfonso Renteria MD [address] [place] [address] Assigned Neuroscience Provider 04/02/23 09/29/24 Radha Lomeli APRN STRAPPER OPERATOR [address] [place] [address] Assigned Heart and Vascular Provider 05/28/23 Jelena David OD [address] [place] [address] MD Ophthalmology 06/15/23 Esha Grimm PA-C [address] [place] [address] Assigned PCP 07/16/23 Valery Veronica PA-C [address] [place] [place] [address] 020215 Physician Wet Pan Operator Dermatology 09/19/23 Rey Tay MD [address] [place] [address] 042125 Gastroenterology 09/20/23 Rocky Zepeda DO [address] [place] [address] 400635 Physician Gastroenterology 09/20/23 Philip Dumont MD [address] [place] [address] 990645 Physician Ophthalmology 09/22/23 Meredith Carrera PA-C [address] [place] [address] 811685 Assigned Gastroenterology Provider 11/01/23 Neil Kent MD [address] [place] [address] Dermatology 11/02/23 [place] [address] [place] [address] Neurological Surgery 12/26/23 Audrey Waite PA-C 500 [place] [address] Physician Wet Pan Operator Dermatology 02/28/24 Valery Veronica PA-C 792184 [address] [place] [address] Physician Wet Pan Operator Dermatology 04/10/24 Herminia Hatch MD [address] [place] [address] [id number] Assigned Rheumatology Provider 07/02/24 [place] [address] [place] [address] [place] [address] Ophthalmology 08/30/24 [place] [address] [place] [address] Assigned Neuroscience Provider 09/30/24 Maru Man PA-C [address] [place] [address] Physician Wet Pan Operator Dermatology 10/03/24 documented as of this encounter
--- OUTSIDE RECORDS SUMMARY | 2024-10-18 19:22 | XMS_ITS | Encounter Summary ---
Author Organization [facility] Address [address] [place] [address] Care Team Providers Care Business Analytics Manager Name Role Phone Lita Oseguera Unavailable Unavailable Marija Edgar APRN PIPE BOWL PAINT TRIMMER Primary Care Provider + Marija Edgar APRN PIPE BOWL PAINT TRIMMER Unavailable [phone] Mynor Broussard MD Unavailable [phone] Keisha Dotson MD Unavailable Galo Burrell MD Unavailable Unavailable Diana Desir [facility] Unavailable Rain Galaviz PA-C Unavailable Summer Lara MD Unavailable [phone] Tavia Wyatt MD Unavailable Johnny Murillo MD Unavailable Erica Farrell APRN PIPE BOWL PAINT TRIMMER Unavailable Tavia Wyatt MD Unavailable Diana Desir [facility] Unavailable Rich Barrett MD Unavailable [phone] Neil Kent MD Unavailable Roney StoryM Unavailable Erica Farrell APRN PIPE BOWL PAINT TRIMMER Unavailable Diana Desir [facility] Unavailable Jelena David OD Unavailable [phone] Galo Burrell MD Unavailable Unavailable Livan Sharif MD Unavailable Livan Sharif MD Unavailable IsCatherine hobbs MD Unavailable + Valery Veronica PA-C Unavailable [phone] Catherine Cm MD Unavailable + Johnny Murillo MD Unavailable [phone] Brea Quinn COAT CUTTER PIPE BOWL PAINT TRIMMER Unavailable [phone] Brea Quinn COAT CUTTER PIPE BOWL PAINT TRIMMER Unavailable [phone] Jose Francisco Johnson MD Unavailable Livan Sharif MD Unavailable + IsCatherine hobbs MD Unavailable + Sydnie Martinez RN Unavailable Unavailable Alfonso Renteria MD Unavailable Esha Grimm PA-C Primary Care Provider Cheng Todd PA-C Unavailable Radha Lomeli COAT CUTTER PIPE BOWL PAINT TRIMMER Unavailable [phone] Jelena David OD Unavailable Pao Joseph RN Unavailable Unavailable Esha Grimm-C Unavailable [phone] Valery Veronica PA-C Unavailable [phone] Rey Tay MD Unavailable Rocky Zepeda DO Unavailable Philip Dumont MD Unavailable [phone] LoreMeredith mayersC Unavailable [phone] Neil Kent MD Unavailable Juan Pablo Emmanuel MD Unavailable [phone] Audrey WaiteC Unavailable [phone] Valery VeronicaC Unavailable [phone] Herminia Hatch MD Unavailable Jelena David OD Unavailable Juan Pablo Emmanuel MD Unavailable [phone] Maru Man PA-C Unavailable [phone] Encounter Details Date Type Department Care Team (Late st Contact Info) Description 10/28/2021 MyC Medical Advice [facility] Heart [address] [place] [address] Erica Farrell, COAT CUTTER PIPE BOWL PAINT TRIMMER [address] [place], [place] [phone] Social History Tobacco Use Types Packs/Day Years [...] How often do you attend muslim or scientologist serv ices? Never 09/22/2021 Do [...] Answer Date Recorded PHQ-2 Score 2 09/22/2021 [facility] [...] in a alf (including now)? No 09/22/2021 [place] Depression [...] PM CDT Legal Sex Female 4:13 AM COOKER SULFATE Gender Identity Female 03/02/2021 5:45 PM CDT [...] 10/22/2024 11:00 AM CDT Office Visit [facility] [address] [address] Maru Man PA-C [address] 487830 10/23/2024 PRE VISIT [facility] Neurology [facility] [address] [facility], [address] [place] [phone] Johnny Penn MD [address] [place] 660845 Previsit 10/23/2024 9:30 AM CDT Office Visit [facility] Neurology [facility] [address] [place] [address], [address] [place] [phone] [place] [address] [place], [place] [phone] Johnny Penn MD [address] [place] [address] 10/24/2024 4:00 PM CDT [facility] Visit [facility] [address] [facility] [address] [facility] [address] [place] [phone] Jelena David, 3305 [facility] [place] [address] 10/31/2024 9:15 AM CDT Virtual Visit [facility] Gastroenterology Clinic [address] 4th [place] [phone] Meredith Carrera PA-C [address] [place] [address] 448065 12/20/2024 2:30 PM CDT Office Visit [facility] [address] [place] [phone] Esha Grimm PA-C [address] [place] [address] documented as of this encounter Visit Diagnoses Not on filedocumented in this encounter Additional Health Concerns Infection Onset Date Last Indicated Resolved Time Rule Out COVID-19 12/18/2021 12/18/2021 12/19/2021 11:34 AM CDT Rule Out COVID-19 02/24/2022 02/24/2022 02/25/2022 1:08 PM CDT Rule Out COVID-19 04/26/2022 04/26/2022 04/26/2022 6:47 AM CDT Rule Out COVID-19 05/17/2022 05/17/2022 05/17/2022 10:20 PM COOKER SULFATE Rule Out COVID-19 06/09/2022 06/09/2022 06/09/2022 9:35 AM COOKER SULFATE COVID-19 06/09/2022 06/09/2022 06/30/2022 11:4 1 PM COOKER SULFATE Rule Out COVID-19 11/10/2022 11/10/2022 11/11/2022 12:17 [...] of this encounter Care Teams Business Analytics Manager Relationship Specialty Start Date End Date Marija Edgar APRN CNP PCP - General Nurse Practitioner 04/30/20 04/14/23 Esha Grimm PA-C [address] [place] [address] PCP - General Family Medicine 05/04/23 Lita Oseguera Personal Advocate & Liaison (PAL) 02/28/20 03/27/23 Marija Edgar APRN CNP Assigned PCP 06/08/20 04/29/23 Mynor Broussard MD 6[address] [facility] 500 [place], [place] [address] Assigned Surgical Provider 06/01/20 11/28/21 Keisha Dotson MD 909 [place], [place] 341395 Assigned Neuroscience Provider 06/04/20 04/01/23 Galo Burrell MD Assigned Heart and Vascular Provider 10/05/20 04/02/22 Diana Desir, [facility] [address] [place], [place] 0[address] Pharmacist Pharmacist 04/17/21 Rain Galaviz PA-C 5 [facility] [address] [place] [address] Physician Retort Feeder Ground Bone Dermatology 04/28/21 Summer Lara MD [address] [place], [place] 762134 Assigned OBGYN Provider 05/31/21 2 Tavia Wyatt MD [address] [facility] [place], [place] 7764[address] Dermatology 07/14/21 Johnny Murillo MD [address] [facility] [address] [place] [address] Assigned Musculoskeletal Provider 08/30/21 03/17/22 Erica Farrell APRN PIPE BOWL PAINT TRIMMER 6405 [facility] [address] [place] [address] Nurse Practitioner Cardiovascular Disease 09/09/21 Tavia Wyatt MD [address] [place], [place] 021230 Assigned Surgical Provider 11/29/21 05/07/22 Diana Desir, [facility] 3033 [place] [address] Assigned MTM Pharmacist 01/02/22 Rich Barrett MD 3033 [place] [address] Physician Ophthalmology 01/21/22 Neil Kent MD 500 [place] [address] Dermatology 02/24/22 Roney Story DPM [address] [facility] [address] [place] [address] Assigned Musculoskeletal Provider 03/20/22 08/13/22 Erica Farrell APRN PIPE BOWL PAINT TRIMMER 1700 [place] [address] Assigned Heart and Vascular Provider 04/03/22 04/16/22 [facility] [address] [place], [place] 02[address] Assigned MTM Pharmacist 04/07/22 Frankie Jelena TempletonSONJA woods [address] [facility] [place] [address] Assigned Surgical Provider 05/08/22 10/08/22 Galo Burrell MD Assigned Heart and Vascular Provider 04/17/22 06/11/22 Livan Sharif MD [address] [place] 8[address]055 Cardiovascular Disease 05/14/22 Livan Sharif MD [address] [place] 814935 Assigned Heart and Vascular Provider 06/12/22 07/23/22 Catherine Cm MD [address] [place] 208265 Cardiovascular Disease 07/21/22 Valery Veronica, PA-C 909 [place], [place] 936955 Physician Retort Feeder Ground Bone Dermatology 07/21/22 Catherine Cm MD [address] [place] 282405 Assigned Heart and Vascular Provider 07/24/22 11/05/22 Johnny Murillo MD [address] [place] [address] Assigned Musculoskeletal Provider 08/14/22 10/08/22 Brea Quinn APRN PIPE BOWL PAINT TRIMMER 500 [place] [address] Nurse Practitioner Dermatology 09/21/22 Brea Quinn APRN PIPE BOWL PAINT TRIMMER 6401 [place] [address] Assigned Surgical Provider 10/09/22 05/01/24 [place] [address] [facility] 300 [place] [address] Assigned Musculoskeletal Provider 10/09/22 05/01/24 Livan Sharif MD 6405 [facility] [address] [place] [address] Assigned Heart and Vascular Provider 11/06/22 11/12/22 Catherine Cm MD 6405 [facility] [address] [place] [address] Assigned Heart and Vascular Provider 11/13/22 05/27/23 Sydnie Martinez RN Personal Advocate & Liaison (PAL) Family Medicine 03/28/23 07/31/23 Alfonso Renteria MD [address] [facility] 200 [place] [address] Assigned Neuroscience Provider 04/02/23 09/29/24 Cheng Todd PA-C [address] [place] [address] [id number] Assigned PCP 04/30/23 07/15/23 Radha Lomeli APRN PIPE BOWL PAINT TRIMMER [address] [place] [address] Assigned Heart and Vascular Provider 05/28/23 Jelena David OD [address] [facility] [place] [address] MD Ophthalmology 06/15/23 Pao Joseph, VJ Personal Advocate & Liaison (PAL) Nurse 08/01/23 11/07/23 Esha Grimm PA-C [address] [place] [phone] Assigned PCP 07/16/23 Valery Veronica PA-C [address] [place] [address] 381875 Physician Retort Feeder Ground Bone Dermatology 09/19/23 Rey Tay MD [address] [place] [address] 836665 Gastroenterology 09/20/23 Rocky Zepeda DO [address] [place] [address] 749115 Physician Gastroenterology 09/20/23 Philip Dmuont MD [address] [place] [address] 013725 Physician Ophthalmology 09/22/23 Meredith Carrera PA-C [address] [place] [address] 143005 Assigned Gastroenterology Provider 11/01/23 Neil Kent MD [address] [place] [address] MD Dermatology 11/02/23 [place] [address] [facility] [address] [place] [address] Neurological Surgery 12/26/23 Audrey Waite PA-C 500 [place] [address] Physician Retort Feeder Ground Bone Dermatology 02/28/24 Valery Veronica PA-C 711056 [place] [address] Physician Retort Feeder Ground Bone Dermatology 04/10/24 Herminia Hatch MD [address] [place] [address] [id number] Assigned Rheumatology Provider 07/02/24 Jelena David OD [address] [place] [address] [place] [address] Ophthalmology 08/30/24 [place] [address] [place] [address] Assigned Neuroscience Provider 09/30/24 Maru Man PA-C [address] [place] [address] Physician Retort Feeder Ground Bone Dermatology 10/03/24 documented as of this encounter
--- OUTSIDE RECORDS SUMMARY | 2024-10-18 19:22 | XMS_ITS | Encounter Summary ---
Author Organization [facility] Address [address] [place] [address] Care Team Providers Care Seamer Name Role Phone Lita Oseguera Unavailable Unavailable Marija Edgar APRN HYDROGRAPHY TEACHER Primary Care Provider + Marija Edgar APRN HYDROGRAPHY TEACHER Unavailable Mynor Broussard MD Unavailable [phone] Keisha Dotson MD Unavailable Galo Burrell MD Unavailable Unavailable Diana Desir [facility] Unavailable Rain Galaviz PA-C Unavailable Summer Lara MD Unavailable [phone] Tavia Wyatt MD Unavailable Johnny Murillo MD Unavailable Erica Farrell APRN HYDROGRAPHY TEACHER Unavailable Teresita Bean [facility] Unavailable Tavia Wyatt MD Unavailable Diana Desir [facility] Unavailable Rich Barrett MD Unavailable [phone] Neil Kent MD Unavailable Roney Story DPM Unavailable Erica Farrell ORACLE DRM CONSULTANT HYDROGRAPHY TEACHER Unavailable Diana Desir [facility] Unavailable [phone] Jelena David OD Unavailable [phone] Galo Burrell MD Unavailable Unavailable Livan Sharif MD Unavailable + Livan Sharif MD Unavailable + Catherine Cm MD Unavailable + Valery Veronica PA-C Unavailable [phone] Catherine Cm MD Unavailable + Johnny Murillo MD Unavailable [phone] Brea Quinn ORACLE DRM CONSULTANT HYDROGRAPHY TEACHER Unavailable [phone] Brea Quinn ORACLE DRM CONSULTANT HYDROGRAPHY TEACHER Unavailable [phone] Jose Francisco Johnson MD Unavailable Livan Sharif MD Unavailable + IsCatherine hobbs MD Unavailable + Sydnie Martinez RN Unavailable Unavailable Alfonso Renteria MD Unavailable Esha Grimm-C Primary Care Provider Cheng Todd PA-C Unavailable Radha Lomeli ORACLE DRM CONSULTANT HYDROGRAPHY TEACHER Unavailable [phone] Jelena David OD Unavailable Pao Joseph RN Unavailable Unavailable Esha Grimm-C Unavailable [phone] JeremíasValery damon PA-C Unavailable [phone] Rey Tay MD Unavailable Rocky Zepeda DO Unavailable Philip Dumont MD Unavailable [phone] Meredith Carrera-C Unavailable [phone] Neil Kent MD Unavailable Juan Pablo Emmanuel MD Unavailable [phone] Audrey Waite PA-C Unavailable [phone] Valery Veronica-C Unavailable [phone] Herminia Hatch MD Unavailable Jelena David OD Unavailable Juan Pablo Emmanuel MD Unavailable [phone] Maru Man PA-C Unavailable [phone] Encounter Details Date Type Department Care Team (Late st Contact Info) Description 09/02/2021 [facility] [address] [address] [facility] 3033 [place] [address] Social History Tobacco Use Types Packs/Day Years [...] do you attend [facility] or synagogue services? More than 4 [...] Answer Date Recorded PHQ-2 Score 0 04/02/2021 [facility] Answer Date [...] a senior care (including now)? No 08/11/2020 [place] Depression Scale Answer Date Recorded [place] Depression Score 5 01/14/2021 Last EPDS Self Harm Result Not on file 01/14 Education Answer Date Recorded What is the highest level of school you have completed or the highest degree you have received? 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 OFFICE NURSE Gender Identity Female 03/02/2021 5:45 PM CDT Sexual Orientation Straight 02/28/2020 12 :51 AM CDT COVID-19 Exposure Response Date Recorded In the last month, have you been in contact with someone who was confirmed or suspected to have Coronavirus / COVID-19? No / Unsure 09/02/2021 12:26 PM OFFICE NURSE documented as of this encounter Plan of Treatment Upcoming Encounters Date Type Department Care Team ([facility] st Contact Info) Description 10/22/2024 11:00 AM CDT Office Visit [facility] [address] [phone] Maru Man PA-C [address] [address] 10/23/2024 PRE VISIT [facility] Neurology [facility] [address] [facility], [address] [place] [phone] Johnny Penn MD [address] [place] [address] Previsit 10/23/2024 9:30 AM CDT Office Visit [facility] Neurology [facility] [address] [facility], [address] [place] [phone] [place] [address] [place], [place] [address] Johnny Penn MD [address] [place] [address] 10/24/2024 4:00 PM CDT Office Visit [facility] [address] [facility] [address] [place] [phone] Jelena David, 3305 [facility] [place] [address] 10/31/2024 9:15 AM CDT Virtual Visit [facility] Gastroenterology Clinic [address] 4th [place] [phone] Meredith Carrera PA-C [address] [place] [address] 764035 12/20/2024 2:30 PM CDT Office Visit [address] [phone] Esha Grimm PA-C [address] [place] [phone] documented as of this encounter Visit Diagnoses Not on filedocumented in this encounter Additional Health Concerns Infection Onset Date Last Indicated Resolved Time Rule Out COVID-19 12/18/2021 12/18/2021 12/19/2021 11:34 AM CDT Rule Out COVID-19 02/24/2022 02/24/2022 02/25/2022 1:08 PM CDT Rule Out COVID-19 04/26/2022 04/26/2022 04/26/2022 6:47 AM CDT Rule Out COVID-19 05/17/2022 05/17/2022 05/17/2022 10:20 PM OFFICE NURSE Rule Out COVID-19 06/09/2022 06/09/2022 06/09/2022 9:35 AM OFFICE NURSE COVID-19 06/09/2022 06/09/2022 06/30/2022 11:4 1 PM OFFICE NURSE Rule Out COVID-19 11/10/2022 11/10/2022 11/11/2022 [...] documented as of this encounter Care Teams Seamer Relationship Specialty Start Date End Date Marija Edgar APRN CNP PCP - General Nurse Practitioner 04/30/20 04/14/23 Esha Grimm PA-C [address] [place] [address] PCP - General Family Medicine 05/04/23 Lita Oseguera Personal Advocate & Liaison (PAL) 02/28/20 03/27/23 Marija Edgar APRN HYDROGRAPHY TEACHER Assigned PCP 06/08/20 04/29/23 Mynor Broussard MD 6363 [facility] 500 [place], [place] 358785 Assigned Surgical Provider 06/01/20 11/28/21 Keisha Dotson MD 909 [place], [place] 817835 Assigned Neuroscience Provider 06/04/20 04/01/23 Galo Burrell MD Assigned Heart and Vascular Provider 10/05/20 04/02/22 [facility] 3033 [place] [address] Pharmacist Pharmacist 04/17/21 Rain Galaviz PA-C [address] [place] [address] [address] [place] [address] Physician Knobber Dermatology 04/28/21 Summer Lara MD [address] [place] [address] 567084 Assigned OBGYN Provider 05/31/21 9 2 Tavia Wyatt MD [address] [place] [address] 203462 Dermatology 07/14/21 Johnny Murillo MD [address] [place] [address] Assigned Musculoskeletal Provider 08/30/21 03/17/22 Erica Farrell APRN HYDROGRAPHY TEACHER 6405 [facility] [address] [place] [address] Nurse Practitioner Cardiovascular Disease 09/09/21 Teresita [facility] [address] [facility] [address] [place] [phone] Pharmacist Pharmacist 09/24/21 09/29/21 Tavia Wyatt MD [address] [place] [address] Assigned Surgical Provider 11/29/21 05/07/22 [facility] 3033 [place] [address] Assigned MTM Pharmacist 01/02/22 Rich Barrett MD [address] [place] [address] Physician Ophthalmology 01/21/22 Neil Kent MD 500 [place], [place] 195555 Dermatology 02/24/22 Roney Story DPM [address] [facility] 300 [place], [place] 590[address] Assigned Musculoskeletal Provider 03/20/22 08/13/22 Erica Farrell APRN HYDROGRAPHY TEACHER 1700 [place] [address] Assigned Heart and Vascular Provider 04/03/22 04/16/22 Diana Desir, [facility] 30[address] [place], [place] 445296 Assigned MTM Pharmacist 04/07/22 Jelena David OD [address] [facility] [place] [address] Assigned Surgical Provider 05/08/22 10/08/22 Galo Burrell MD Assigned Heart and Vascular Provider 04/17/22 06/11/22 Livan Sharif MD [address] [place] [address] Cardiovascular Disease 05/14/22 Livan Sharif MD [address] [place] [address] Assigned Heart and Vascular Provider 06/12/22 07/23/22 Catherine Cm MD [address] [place] [address] Cardiovascular Disease 07/21/22 Valery Veronica, PAUcheC 909 [place] [address] Physician Knobber Dermatology 07/21/22 Catherine Cm MD [address] [facility] [address] [place] [address] Assigned Heart and Vascular Provider 07/24/22 11/05/22 Johnny Murillo MD 25[address] [facility] [address] [place], [place] 818174 Assigned Musculoskeletal Provider 08/14/22 10/08/22 Brea Quinn APRN HYDROGRAPHY TEACHER 500 [facility] 94[address] Nurse Practitioner Dermatology 09/21/22 Brea Quinn APRN HYDROGRAPHY TEACHER 6401 [facility] [place] 746632 Assigned Surgical Provider 10/09/22 05/01/24 [place] [address] [place] [address] [address] Assigned Musculoskeletal Provider 10/09/22 05/01/24 Livan Sharif MD [address] [facility] [address] [place] [address] Assigned Heart and Vascular Provider 11/06/22 11/12/22 Catherine Cm MD [address] [facility] [address] [place] 343925 Assigned Heart and Vascular Provider 11/13/22 05/27/23 Sydnie Martinez RN Personal Advocate & Liaison (PAL) Family Medicine 03/28/23 07/31/23 Alfonso Renteria MD 57[address] [facility] [address] 200 [place] [address] Assigned Neuroscience Provider 04/02/23 09/29/24 Cheng Todd PA-C [address] [place] [address] Assigned PCP 04/30/23 07/15/23 Radha Lomeli, ORACLE DRM CONSULTANT HYDROGRAPHY TEACHER 6405 [facility] [address] [place], [place] 655435 Assigned Heart and Vascular Provider 05/28/23 Jelena David OD [address] [facility] [place] [address] Ophthalmology 06/15/23 Pao Joseph, VJ Personal Advocate & Liaison (PAL) Nurse 08/01/23 11/07/23 Esha Grimm PA-C [address] [place] [address] Assigned PCP 07/16/23 Valery Veronica PA-C [address] [place] [address] 775315 Physician Knobber Dermatology 09/19/23 Rey Tay MD [address] [place] [address] 792185 Gastroenterology 09/20/23 Rocky Zepeda DO [address] [place] [address] 080675 Physician Gastroenterology 09/20/23 Philip Dumont MD 575 [place] [address] Physician Ophthalmology 09/22/23 Meredith Carrera PA-C [address] [place] [address] Assigned Gastroenterology Provider 11/01/23 Neil Kent MD [address] [address] Dermatology 11/02/23 [place] [address] [place], [place] 495047 Neurological Surgery 12/26/23 Audrey Waite PA-C [address] [place] [address] Physician Knobber Dermatology 02/28/24 Valery Veronica PA-C [address]6778 [address] [place] [address] Physician Knobber Dermatology 04/10/24 Herminia Hatch MD [address] [place] [address] [phone] Assigned Rheumatology Provider 07/02/24 Jelena David OD [address] [place] [address] [place] [address] Ophthalmology 08/30/24 [place] [address] [place] 36[address] Assigned Neuroscience Provider 09/30/24 aMru Man PA-C [address] [place] [address] Physician Knobber Dermatology 10/03/24 documented as of this encounter
--- OUTSIDE RECORDS SUMMARY | 2024-10-18 19:22 | XMS_ITS | Encounter Summary ---
Author Organization [facility] Address [address] [place] [address] Care Team Providers Care Wood Floor Refinisher Name Role Phone Lita Oseguera Unavailable Unavailable Marija Edgar APRN SPEECH THERAPIST EARLY INTERVENTION Primary Care Provider + Marija Edgar APRN SPEECH THERAPIST EARLY INTERVENTION Unavailable Mnyor Broussard MD Unavailable [phone] Keisha Dotson MD Unavailable Galo Burrell MD Unavailable Unavailable Diana Desir [facility] Unavailable Rain Galaviz PA-C Unavailable Summer Lara MD Unavailable [phone] Tavia Wyatt MD Unavailable Johnny Murillo MD Unavailable Erica Farrell APRN SPEECH THERAPIST EARLY INTERVENTION Unavailable Teresita Bean [facility] Unavailable Tavia Wyatt MD Unavailable Diana Desir [facility] Unavailable Rich Barrett MD Unavailable [phone] Neil Kent MD Unavailable Roney Story DPM Unavailable Erica Farrell CUT OFF MACHINE HELPER SPEECH THERAPIST EARLY INTERVENTION Unavailable Diana Desir [facility] Unavailable [phone] Jelena David OD Unavailable Galo Burrell MD Unavailable Unavailable Livan Sharif MD Unavailable + Livan Sharif MD Unavailable + Catherine Cm MD Unavailable + Valery Veronica PA-C Unavailable [phone] Catherine Cm MD Unavailable + Johnny Murillo MD Unavailable [phone] Brea Quinn CUT OFF MACHINE HELPER SPEECH THERAPIST EARLY INTERVENTION Unavailable [phone] Brea Quinn CUT OFF MACHINE HELPER SPEECH THERAPIST EARLY INTERVENTION Unavailable [phone] Jose Francisco Johnson MD Unavailable Livan Sharif MD Unavailable + IsCatherine hobbs MD Unavailable + Sydnie Martinez RN Unavailable Unavailable Alfonso Renteria MD Unavailable Esha Grimm-C Primary Care Provider Cheng Todd PA-C Unavailable Radha Lomeli CUT OFF MACHINE HELPER SPEECH THERAPIST EARLY INTERVENTION Unavailable [phone] Jelena David OD Unavailable [phone] Pao Joseph RN Unavailable Unavailable Esha Grimm-C Unavailable [phone] JeremíasValery damon PA-C Unavailable [phone] Rey Tay MD Unavailable Rocky Zepeda DO Unavailable Philip Dumont MD Unavailable [phone] Meredith Carrera-C Unavailable [phone] Neil Kent MD Unavailable Juan Pablo Emmanuel MD Unavailable [phone] Audrey Waite PA-C Unavailable [phone] Valery Veronica PA-C Unavailable [phone] Herminia Hatch MD Unavailable Jelena David OD Unavailable Juan Pablo Emmanuel MD Unavailable [phone] Maru Man PA-C Unavailable [phone] Encounter Details Date Type Department Care Team (Late st Contact Info) Description 09/24/2021 [facility] [address] [facility] [address] [place] [address] Teresita Bean, [facility] [address] [facility] [place] [address] Social History Tobacco [...] How often do you attend uatsdin or lutheran serv ices? Never 09/22/2021 Do [...] PHQ-2 Score 2 09/22/2021 [facility] - Occupational Stress Questionnaire Answer [...] in a longterm (including now)? No 09/22/2021 Velarde Depression Scale Answer Date Recorded Velarde Depression Score 5 01/14/2021 Last EPDS Self Harm Result Not on file 01/14 Education Answer Date Recorded What is the highest level of school you have completed or the highest degree you have received? 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 WET FINISHER WOOL Gender Identity Female 03/02/2021 5:45 PM CDT [...] Description 10/22/2024 11:00 AM CDT Office Visit [facility] [address] [phone] Maru Man PA-C [address] [id number] 10/23/2024 PRE VISIT [facility] Neurology [facility] [address] [facility], [address] [place] [phone] Johnny Penn MD [address] [place] [address] Previsit 10/23/2024 9:30 AM CDT Office Visit [facility] [address] [facility], [address] [place] [phone] [place] [address] [place] [address] Johnny Penn MD [address] [place] [address] 10/24/2024 4:00 PM CDT Office Visit [facility] [address] [place] [address] Jelena David, [address] [facility] [place] [address] 10/31/2024 9:15 AM CDT Virtual Visit [facility] [address] [place] [address] Meredith Carrera PA-C 909 [place] [address] 12/20/2024 2:30 PM CDT Office Visit [facility] [address] [place] [address] Esha Grimm PA-C [address] [place] [address] documented as of this encounter Visit Diagnoses Not on filedocumented in this encounter Additional Health Concerns Infection Onset Date Last Indicated Resolved Time Rule Out COVID-19 12/18/2021 12/18/2021 12/19/2021 11:34 AM CDT Rule Out COVID-19 02/24/2022 02/24/2022 02/25/2022 1:08 PM CDT Rule Out COVID-19 04/26/2022 04/26/2022 04/26/2022 6:47 AM CDT Rule Out COVID-19 05/17/2022 05/17/2022 05/17/2022 10:20 PM WET FINISHER WOOL Rule Out COVID-19 06/09/2022 06/09/2022 06/09/2022 9:35 AM WET FINISHER WOOL COVID-19 06/09/2022 06/09/2022 06/30/2022 11:4 1 PM WET FINISHER WOOL Rule Out COVID-19 11/10/2022 11/10/2022 11/11/2022 12:17 [...] as of this encounter Care Teams Wood Floor Refinisher Relationship Specialty Start Date End Date Marija Edgar APRN CNP PCP - General Nurse Practitioner 04/30/20 04/14/23 Esha Grimm PA-C [address] [place] [phone] PCP - General Family Medicine 05/04/23 Lita Oseguera Personal Advocate & Liaison (PAL) 02/28/20 03/27/23 Marija Edgar APRN SPEECH THERAPIST EARLY INTERVENTION Assigned PCP 06/08/20 04/29/23 Mynor Broussard MD [address] [id number] Assigned Surgical Provider 06/01/20 11/28/21 Keisha Dotson MD 909 [place], [place] 889905 Assigned Neuroscience Provider 06/04/20 04/01/23 Galo Burrell MD Assigned Heart and Vascular Provider 10/05/20 04/02/22 Diana Desir, [facility] [address] [place], [place] 1730[address] Pharmacist Pharmacist 04/17/21 Rain Galaviz PA-C [address] [place] [address] [address] [place], [place] [phone] Physician Dynamic Balancer Dermatology 04/28/21 Summer Lara MD [address] [place] [address] [id number] Assigned OBGYN Provider 05/31/21 9 2 Tavia Wyatt MD 606 [address], [place] [phone] Dermatology 07/14/21 Johnny Murillo MD [address] [facility] [address] [place], [place] 29[address] Assigned Musculoskeletal Provider 08/30/21 03/17/22 Erica Farrell APRN SPEECH THERAPIST EARLY INTERVENTION [address] [facility] [address] [place], [place] 34[address] Nurse Practitioner Cardiovascular Disease 09/09/21 Teresita Bean [facility] [facility] [address] [place] [phone] Pharmacist Pharmacist 09/24/21 09/29/21 Tavia Wyatt MD [address] [place], [place] [phone] Assigned Surgical Provider 11/29/21 05/07/22 [facility] 3033 [place] [address] Assigned MTM Pharmacist 01/02/22 Rich Barrett MD [address] [place] [address] Physician Ophthalmology 01/21/22 Neil Kent MD 500 [place], [place] 609575 Dermatology 02/24/22 Roney Story DPM [address] [facility] [address] [place], [place] 7288[address] Assigned Musculoskeletal Provider 03/20/22 08/13/22 Erica Farrell APRN SPEECH THERAPIST EARLY INTERVENTION 1700 [place] [address] Assigned Heart and Vascular Provider 04/03/22 04/16/22 Diana Desir, [facility] 3033 [place] [address] Assigned MTM Pharmacist 04/07/22 Jelena David OD [address] [facility] [place] [address] Assigned Surgical Provider 05/08/22 10/08/22 Galo Burrell MD Assigned Heart and Vascular Provider 04/17/22 06/11/22 Livan Sharif MD [address] [place] [address] Cardiovascular Disease 05/14/22 Livan Sharif MD [address] [place] [address] Assigned Heart and Vascular Provider 06/12/22 07/23/22 Catherine Cm MD [address] [place] [address] Cardiovascular Disease 07/21/22 Valery Veronica PAUcheC [address]09 [place] [address] Physician Dynamic Balancer Dermatology 07/21/22 Catherine Cm MD [address] [place] [address] Assigned Heart and Vascular Provider 07/24/22 11/05/22 Johnny Murillo MD [address] [address] Assigned Musculoskeletal Provider 08/14/22 10/08/22 Brea Quinn APRN SPEECH THERAPIST EARLY INTERVENTION [address] [place] [address] 106645 Nurse Practitioner Dermatology 09/21/22 Brea Quinn APRN SPEECH THERAPIST EARLY INTERVENTION [address] [place] [address] [place] [address] Assigned Surgical Provider 10/09/22 05/01/24 [place] [address] [facility] 300 [place] [address] Assigned Musculoskeletal Provider 10/09/22 05/01/24 Livan Sharif MD [address] [facility] [address] [place] [address] Assigned Heart and Vascular Provider 11/06/22 11/12/22 Catherine Cm MD [address] [facility] [address] [place] [address]365 Assigned Heart and Vascular Provider 11/13/22 05/27/23 Sydnie Martinez RN Personal Advocate & Liaison (PAL) Family Medicine 03/28/23 07/31/23 Alfonso Renteria MD [address] [facility] 200 [place] [address] Assigned Neuroscience Provider 04/02/23 09/29/24 Cheng Todd PA-C [address] [place] [address] Assigned PCP 04/30/23 07/15/23 Radha Lomeli APRN SPEECH THERAPIST EARLY INTERVENTION [address] [facility] [address] [place] [address] Assigned Heart and Vascular Provider 05/28/23 Jelena David OD [address] [facility] [place] [address] Ophthalmology 06/15/23 Pao Joseph, VJ Personal Advocate & Liaison (PAL) Nurse 08/01/23 11/07/23 Esha Grimm PA-C [address] [place] [phone] Assigned PCP 07/16/23 Valery Veronica PA-C [address] [place] [address] 358785 Physician Dynamic Balancer Dermatology 09/19/23 Rey Tay MD [address] [place] [address] 655305 Gastroenterology 09/20/23 Rocky Zepeda DO [address] [place] [address] 626985 Physician Gastroenterology 09/20/23 Philip Dumont MD [address] [place] [address] Physician Ophthalmology 09/22/23 Meredith Carrera PA-C [address] [place] [address] Assigned Gastroenterology Provider 11/01/23 Neil eKnt MD [address] [address] Dermatology 11/02/23 [place] [address] [place] [address] Neurological Surgery 12/26/23 Audrey Waite PA-C 500 [place] [address] Physician Dynamic Balancer Dermatology 02/28/24 Valery Veronica PA-C [address]365 [address] [place] [address] Physician Dynamic Balancer Dermatology 04/10/24 Herminia Hatch MD [address] [place] [address] [phone] Assigned Rheumatology Provider 07/02/24 [place] [address] [place] [address] [place] [address] Ophthalmology 08/30/24 [place] [address] [place] [address] Assigned Neuroscience Provider 09/30/24 Maru Man PA-C [address] [address] Physician Dynamic Balancer Dermatology 10/03/24 documented as of this encounter
--- OUTSIDE RECORDS SUMMARY | 2024-10-18 19:22 | XMS_ITS | Encounter Summary ---
Author Organization [facility] Address [address] [place] [address] Care Team Providers Care Astrochemist Name Role Phone Diana Desir [facility] Unavailable Rain Galaviz PA-C Unavailable Tavia Wyatt MD Unavailable [phone] Erica Farrell APRN HAND WASHER Unavailable Rich Barrett MD Unavailable [phone] Neil [place] MD Unavailable Diana Desir [facility] Unavailable Livan Sharif MD Unavailable Catherine Cm MD Unavailable + Valery Veronica PA-C Unavailable Brea Quinn CLINICAL ATHLETIC INSTRUCTOR HAND WASHER Unavailable Brea Quinn CLINICAL ATHLETIC INSTRUCTOR HAND WASHER Unavailable Jose Francisco Johnson MD Unavailable Alfonso Renteria MD Unavailable [phone] Esha Grimm PA-C Primary Care Provider [phone] Radha Lomeli APRN HAND WASHER Unavailable Jelena David OD Unavailable [phone] sEha Grimm PA-C Unavailable [phone] Valery Veronica PA-C Unavailable Rey Tay MD Unavailable Duane Rocky DO Unavailable Philip Dumont MD Unavailable Meredith Carrera PA-C Unavailable Neil [place] MD Unavailable Juan Pablo Emmanuel MD Unavailable Audrey Waite PA-C Unavailable Valery Veronica PA-C Unavailable Herminia Hatch MD Unavailable Jelena David OD Unavailable Juan Pablo Emmanuel MD Unavailable Maru Man PA-C Unavailable Reason for Referral * CV Testing (Routine) - Closed Specialty Diagnoses / Procedures Referred By Contparviz t Referred To Contact Cardiology Diagnoses SVT (supraventricular tachycardia) Procedures Cardiac Event Monitor Adult Pediatric Radha Lomeli APRN HAND WASHER [address] [place] [address] Phone: tel: fax: [facility] [address] [facility] [address] [place] [address] Phone: tel: fax: Referral ID Status Reason Start Date Expiration Date Visits Re quested Visits Authorized [id number] Closed 03/07/2024 03/07/2025 1 1 Encounter Details Date Type Department Care Team (Late st Contact Info) Description 03/07/2024 Telephone [place] [id number] [facility] [address] [place] [address] Carley Myles, RN Social History [...] you attend [employer] [facility] or [employer]? 1 to 4 times [...] Answer Date Recorded PHQ-2 Score 1 02/07/2024 [facility] Occupat ional [facility] - Occupational Stress [...] exercise at this level? 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 Pt states she will mail back the Zio patch and get event monitor placed. Pt requested a receptionist scheduler to call her instead of her reaching out. Will route to scheduling team. Orders in EPIC. Carley ZABALA [facility] * Telephone Encounter - Radha Lomeli [...] Radha Lomeli CNP for review. Carley ZABALA [facility] documented in this encounter Plan of Treatment Upcoming Encounters Date Type Department Care Team (Late st Contact Info) Description 10/22/2024 11:00 AM CDT Office Visit [facility] [address] [address] Maru Man PA-C [address] [address] 10/23/2024 PRE VISIT [facility] - [address], [address] [place] [phone] Johnny Penn MD [address] [place] [address] Previsit 10/23/2024 9:30 AM CDT Office Visit [facility] [address] [place] [address], [address] [place] [phone] [place] [address] [place] [address] Johnny Penn MD [address] [place] 137295 10/24/2024 4:00 PM CDT Office Visit [facility] [address] [facility] [address] [place] [address] Jelena David, [address] [facility] [place] [address] 10/31/2024 9:15 AM CDT Virtual Visit [facility] Gastroenterology [address] [phone] Meredith Carrera PA-C [address] [place] [address] 12/20/2024 2:30 PM CDT Office Visit [facility] [address] [place] [address] Esha Grimm PA-C [address] [place] [address] documented as of this encounter Results * CARDIAC EVENT MONITOR APPLICATION AND PROVIDER INTERPRETATION (03/08/2024 11:18 AM CDT) Anatomical Region Laterality Modality Other Radha Lomeli APRN, CNP CV CARDIAC SERVICES ORDERA BLES Final Result [...] documented as of this encounter Care Teams Astrochemist Relationship Specialty Start Date End Date Esha Grimm PA-C [address] [place] [address] PCP - General Family Medicine 05/04/23 Diana Desir, [facility] 3033 [place] [address] Pharmacist Pharmacist 04/17/21 Rain Galaviz PA-C [address] [place] [address] [address] [place] [address] Physician Treater Dermatology 04/28/21 Tavia Wyatt MD [address] [place] [address] [address] [place] [address] Dermatology 07/14/21 Erica Farrell APRN HAND WASHER [address] [place] 3520500 [place] [address]285 Nurse Practitioner Cardiovascular Disease 09/09/21 Rich Barrett MD [address] [place] [address] Physician Ophthalmology 01/21/22 Neil Kent MD 500 [place], [place] 678935 MD Dermatology 02/24/22 Diana Desir, [facility] 3033 [place], [place] 584266 Assigned MTM Pharmacist 04/07/22 Livan Sharif MD [address] 0787[address] Cardiovascular Disease 05/14/22 Catherine Cm MD [address] [place] 6[address] Cardiovascular Disease 07/21/22 Valery Veronica, PA-C 909 [place], [place] 329505 Physician Treater Dermatology 07/21/22 Brea Quinn APRN HAND WASHER 500 [place], [place] 5055[address] Nurse Practitioner Dermatology 09/21/22 Brea Quinn APRN HAND WASHER [address] [place] [address] [place] 557672 Assigned Surgical Provider 10/09/22 05/01/24 [place] [address] [place] [address] Assigned Musculoskeletal Provider 10/09/22 05/01/24 Alfonso Renteria MD 5775 [facility] 200 [place], [place] 3757[address] Assigned Neuroscience Provider 04/02/23 09/29/24 Radha Lomeli, ARLENE HAND WASHER [address] [facility] [address] [place] [address] Assigned Heart and Vascular Provider 05/28/23 Jelena David OD [address] [place] [address] Ophthalmology 06/15/23 Esha Grimm PA-C [address] [place] [phone] Assigned PCP 07/16/23 Valery Veronica PA-C [address] [place] [address] 503905 Physician Treater Dermatology 09/19/23 Rey Tay MD [address] [place] [address] 444625 Gastroenterology 09/20/23 Rocky Zepeda DO [address] [place] [address] 291105 Physician Gastroenterology 09/20/23 Philip Dumont MD [address] [place] [address] Physician Ophthalmology 09/22/23 Meredith Carrera PA-C [address] [place] [address] Assigned Gastroenterology Provider 11/01/23 Neil Kent MD [address] [address] Dermatology 11/02/23 [place] [address] [place], [place] [address] Neurological Surgery 12/26/23 Audrey Waite PA-C [address] [place] [address] Physician Treater Dermatology 02/28/24 Valery Veronica PA-C [address] [place] [address] Physician Treater Dermatology 04/10/24 Herminia Hatch MD [address] [place] [address] [id number] Assigned Rheumatology Provider 07/02/24 Jelena David OD [address] [place] [address] [place] [address] Ophthalmology 08/30/24 [place] [address] [place] [address] Assigned Neuroscience Provider 09/30/24 Maru Man PA-C [address] [place] [address] Physician Treater Dermatology 10/03/24 documented as of this encounter
--- OUTSIDE RECORDS SUMMARY | 2024-10-18 19:22 | XMS_ITS | Encounter Summary ---
Author Organization [place] Address [address] [place] [address] 18[address] Care Team Providers Care Grain Drier Operator Name Role Phone Diana Desir [facility] Unavailable [phone] Rain Galaviz PA-C Unavailable Tavia Wyatt MD Unavailable [phone] Erica Farrell APRN ELEVATOR SERVICEMAN Unavailable Rich Barrett MD Unavailable [phone] Neil Kent MD Unavailable Diana Desir [facility] Unavailable [phone] Livan Sharif MD Unavailable Catherine Cm MD Unavailable + Valery Veronica PA-C Unavailable Brea Quinn MONUMENT CARVER ELEVATOR SERVICEMAN Unavailable [phone] Brea Quinn MONUMENT CARVER ELEVATOR SERVICEMAN Unavailable Jose Francisco Johnson MD Unavailable Alfonso Renteria MD Unavailable [phone] Esha Grimm PA-C Primary Care Provider Radha Lomeli APRN ELEVATOR SERVICEMAN Unavailable Jelena David OD Unavailable Esha Grimm PA-C Unavailable [phone] Valery Veronica PA-C Unavailable Rey Tay MD Unavailable Rocky Zepeda DO Unavailable Philip Dumont MD Unavailable [phone] Meredith Carrera PA-C Unavailable [phone] Neil Kent MD Unavailable Juan Pablo Emmanuel MD Unavailable [phone] Audrey Waite PA-C Unavailable [phone] Valery Veronica PA-C Unavailable [phone] Herminia Hatch MD Unavailable Jelena David OD Unavailable Juan Pablo Emmanuel MD Unavailable [phone] Maru Man PA-C Unavailable [phone] Encounter Details Date Type Department Care Team (Late st Contact Info) Description 03/19/2024 MyC Medical Advice [facility] Gastroenterology Clinic [address] [place] [address] [place] Social History Tobacco [...] Date Recorded PHQ-2 Score 1 02/07/2024 [facility] - Occupational Stress Questionnaire [...] exercise at this level? 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 Gender Identity Female 03/02/2021 5:45 PM CDT Sexual Orientation Straight 02/28/2020 12 :51 AM CDT documented as of this encounter Plan of Treatment Upcoming Encounters Date Type Department Care Team (Late st Contact Info) Description 10/22/2024 11:00 AM CDT Office Visit [address] [phone] Maru Man PA-C [address] [address] 10/23/2024 PRE VISIT [facility] Neurology [facility] [address], [address] [place] [address] Johnny Penn MD [address] [place] [address] [place] [address] Previsit 10/23/2024 9:30 AM CDT Office Visit [facility] Neurology [facility] [place] [address] [facility], [address] [place] [phone] [place] [address] [place] [address] Johnny Penn MD [address] [place] 352185 10/24/2024 4:00 PM CDT Office Visit [facility] [address] [facility] [address] [place] [phone] Jelena David, [address] [place] [address] 10/31/2024 9:15 AM CDT Virtual Visit [facility] Gastroenterology Clinic [address] [phone] Meredith Carrera PA-C [address] [place] [address] 216885 12/20/2024 2:30 PM CDT Office Visit [facility] [address] [place] [address] Esha Grimm PA-C [address] [place] [address] documented as of this encounter [...] as of this encounter Care Teams Grain Drier Operator Relationship Specialty Start Date End Date Esha Grimm PA-C [address] [place] [phone] PCP - General Family Medicine 05/04/23 [facility] [address] [place] [address] Pharmacist Pharmacist 04/17/21 Rain Galaviz PA-C [address] [place] [address] [address] [facility] [place] [address] Physician Federal Appellate Law Clerk Dermatology 04/28/21 Tavia Wyatt MD [address] [place] [address] DR [address] [facility] [place] [address] Dermatology 07/14/21 Erica Farrell APRN ELEVATOR SERVICEMAN [address] [place] [address] Nurse Practitioner Cardiovascular Disease 09/09/21 Rich Barrett MD [address] [place] 954595 Physician Ophthalmology 01/21/22 Neil Kent MD 500 [place] [address] Dermatology 02/24/22 Diana Desir, [facility] 3033 [place] [address] Assigned MTM Pharmacist 04/07/22 Livan Sharif MD [address] [place], [place] [address] Cardiovascular Disease 05/14/22 Catherine Cm MD [address] [place], [place] 165185 Cardiovascular Disease 07/21/22 Valery Veronica, PAUcheC 909 [place], [place] 034215 Physician Federal Appellate Law Clerk Dermatology 07/21/22 Brea Quinn APRN ELEVATOR SERVICEMAN 500 [place], [place] 061845 Nurse Practitioner Dermatology 09/21/22 Brea Quinn APRN ELEVATOR SERVICEMAN [address] [place] [address] 262542 Assigned Surgical Provider 10/09/22 05/01/24 [place] [address] [address] [facility] 300 [place], [place] 435607 Assigned Musculoskeletal Provider 10/09/22 05/01/24 Alfonso Renteria MD [address] [facility] 200 [place], [place] 378526 Assigned Neuroscience Provider 04/02/23 09/29/24 Armani Radha Sia MONUMENT CARVER ELEVATOR SERVICEMAN [address] [place], [place] 925725 Assigned Heart and Vascular Provider 05/28/23 Jelena David OD [address] [place] [address] MD Ophthalmology 06/15/23 Esha Grimm PA-C [address] [place] [phone] Assigned PCP 07/16/23 Valery Veronica PA-C [address] [place] [address] 767295 Physician Federal Appellate Law Clerk Dermatology 09/19/23 Rey Tay MD [address] [place] [address] 003225 Gastroenterology 09/20/23 Rocky Zepeda DO [address] [place] [address] 335845 Physician Gastroenterology 09/20/23 Philip Dumont MD [address] [place] [address] 799065 Physician Ophthalmology 09/22/23 Meredith Carrera PA-C [address] [place] [address] 117365 Assigned Gastroenterology Provider 11/01/23 Neil Kent MD [address] [place] [address] 556670 Dermatology 11/02/23 [place] [address] [place] [address] Neurological Surgery 12/26/23 Audrey Waite PA-C 500 [place] [address] Physician Federal Appellate Law Clerk Dermatology 02/28/24 Valery Veronica PA-C 628142 [place] [address] Physician Federal Appellate Law Clerk Dermatology 04/10/24 Herminia Hatch MD [facility]5 [place], [place] 78270125 Assigned Rheumatology Provider 07/02/24 Jelena David OD [address] [place] [address] Ophthalmology 08/30/24 [place] [address] [place] [facility] [address] Assigned Neuroscience Provider 09/30/24 Maru Man PA-C [address] [place] [address] Physician Federal Appellate Law Clerk Dermatology 10/03/24 documented as of this encounter
--- OUTSIDE RECORDS SUMMARY | 2024-10-18 19:22 | XMS_ITS | Encounter Summary ---
Author Organization [place] Address [address] [place] [address] Care Team Providers Care Transformer Assembler Name Role Phone Diana Desir [facility] Unavailable Rain Galaviz PA-C Unavailable Tavia Wyatt MD Unavailable [phone] Erica Farrell APRN COMPOSITION STONE APPLICATOR Unavailable Rich Barrett MD Unavailable [phone] Neil Kent MD Unavailable Diana Desir [facility] Unavailable Livan Sharif MD Unavailable Catherine Cm MD Unavailable + aVlery eVronica PA-C Unavailable Brea Quinn ALL AROUND GEAR MACHINE OPERATOR COMPOSITION STONE APPLICATOR Unavailable Brea Quinn ALL AROUND GEAR MACHINE OPERATOR COMPOSITION STONE APPLICATOR Unavailable Jose Francisco Johnson MD Unavailable Alfonso Renteria MD Unavailable [phone] Esha Grimm PA-C Primary Care Provider Radha Lomeli APRN COMPOSITION STONE APPLICATOR Unavailable Jelena David OD Unavailable [phone] Esha Grimm PA-C Unavailable [phone] Valery Veronica PA-C Unavailable Rey Tay MD Unavailable Duane Rocky DO Unavailable Philip Dumont MD Unavailable Meredith Carrera PA-C Unavailable Neil Kent MD Unavailable Juan Pablo Emmanuel MD Unavailable Audrey Waite PA-C Unavailable [phone] JeremíasValery damon PA-C Unavailable [phone] Herminia Hatch MD Unavailable Jelena David OD Unavailable Juan Pablo Emmanuel MD Unavailable Maru Man PA-C Unavailable Encounter Details Date Type Department Care Team (Late st Contact Info) Description 03/06/2024 MyC Medical Advice [facility] [address] [address] Ebony Cid APRN COMPOSITION STONE APPLICATOR 500 [place] [address] Social History Tobacco Use Types [...] 1 02/07/2024 [facility] - Occupational Stress Questionnaire Answer Date [...] at this level? 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 [address] [address] Maru Man PA-C [address] [address] 10/23/2024 PRE VISIT [facility] [address], [address] [place] [phone] Johnny Penn MD [address] [place] 5[address]605 Previsit 10/23/2024 9:30 AM CDT Office Visit [facility] - [address], [address] [place] [phone] [place] [address] [place], [place] 5[address]7 Johnny Penn MD [address] [place] [place] [address]265 10/24/2024 4:00 PM CDT Office Visit [facility] [address] [facility] [address] [place] [phone] Jelena David, [address] [place] [address] 10/31/2024 9:15 AM CDT Virtual Visit [facility] Gastroenterology [address]th [place] [phone] Meredith Carrera PA-C [address] [place] [address] 362075 12/20/2024 2:30 PM CDT Office Visit [facility] [address] [place] [address] Esha Grimm PA-C [address] [place] [address] documented as of this encounter Visit Diagnoses Not on filedocumented in this encounter Additional Health Concerns Infection Onset Date Last Indicated Resolved Time Rule Out COVID-19 04/09/2024 04/09/2024 04/10/2024 6:48 PM CDT Rule Out COVID-19 10/04/2024 10/04/2024 10/05/2024 9:42 AM CDT Assessment Noted Time PHQ-9 Depression Total Score: 3 02/07/20 24 9:33 AM CDT documented as of this encounter Care Teams Transformer Assembler Relationship Specialty Start Date End Date Esha Grimm PA-C [address] [place] [address] PCP - General Family Medicine 05/04/23 Diana Desir, [facility] [address] [place] [address] Pharmacist Pharmacist 04/17/21 Rain Galaviz PA-C [address] [place] [address] [address] [place] [address] Physician Hand Brim Ironer Dermatology 04/28/21 Tavia Wyatt MD [address] [place] [address] [address] [place] [address] Dermatology 07/14/21 Erica Farrell APRN COMPOSITION STONE APPLICATOR [address] [place] [address] Nurse Practitioner Cardiovascular Disease 09/09/21 Rich Barrett MD [address] [place] [address] Physician Ophthalmology 01/21/22 Neil Kent MD 500 [place] [address] Dermatology 02/24/22 [facility] 3033 [place] [address] Assigned [place] Pharmacist 04/07/22 Livan Sharif MD [address] [address] Cardiovascular Disease 05/14/22 Catherine Cm MD [address] 775705 Cardiovascular Disease 07/21/22 Valery Veronica, PAUcheC [address] [place] [address] Physician Hand Brim Ironer Dermatology 07/21/22 Brea Quinn APRN COMPOSITION STONE APPLICATOR 500 [place] [address] Nurse Practitioner Dermatology 09/21/22 Brea Quinn APRN COMPOSITION STONE APPLICATOR [address] [place] [address] Assigned Surgical Provider 10/09/22 05/01/24 [place] [address] [address] Assigned Musculoskeletal Provider 10/09/22 05/01/24 Alfonso Renteria MD [address]75 [facility] 200 [place] [address] Assigned Neuroscience Provider 04/02/23 09/29/24 Radha Lomeli APRN COMPOSITION STONE APPLICATOR [address] [facility] [address] [place] [address] Assigned Heart and Vascular Provider 05/28/23 Jelena David OD [address] [place] [address] MD Ophthalmology 06/15/23 Esha Grimm PA-C [address] [place] [address] Assigned PCP 07/16/23 Valery Veronica PA-C [address] [place] [address] 810195 Physician Hand Brim Ironer Dermatology 09/19/23 Rey Tay MD [address] [place] [address] 617235 Gastroenterology 09/20/23 Rocky Zepeda DO [address] [place] [address] 185805 Physician Gastroenterology 09/20/23 Philip Dumont MD [address] [place] [address] 219505 Physician Ophthalmology 09/22/23 Meredith Carrera PA-C [address] [place] [address] 266085 Assigned Gastroenterology Provider 11/01/23 Neil Kent MD [address] [place] [address] Dermatology 11/02/23 [place] [address] [place] [address] Neurological Surgery 12/26/23 Audrey Waite PA-C 500 [place] [address] Physician Hand Brim Ironer Dermatology 02/28/24 Valery Veronica PA-C 429839 [address] [place] [address] Physician Hand Brim Ironer Dermatology 04/10/24 Herminia Hatch MD [address] [place] [address] [id number] Assigned Rheumatology Provider 07/02/24 Jelena David OD [address] [place] [address] [place] [address] Ophthalmology 08/30/24 [place] [address] [place] [address] Assigned Neuroscience Provider 09/30/24 Maru Man PA-C [address] [place] [address] Physician Hand Brim Ironer Dermatology 10/03/24 documented as of this encounter
--- OUTSIDE RECORDS SUMMARY | 2024-10-18 19:22 | XMS_ITS | Encounter Summary ---
Author Organization [place] Address [address] [place] [address] Care Team Providers Care Storeroom Attendant Name Role Phone Diana Desir [facility] Unavailable Rain Galaviz PA-C Unavailable Tavia Wyatt MD Unavailable [phone] Eriac Farrell APRN PROPERTY CONSULTANT Unavailable Rich Barrett MD Unavailable [phone] Neil Kent MD Unavailable Diana Desir [facility] Unavailable Livan Sharif MD Unavailable Catherine Cm MD Unavailable + Valery Veronica PA-C Unavailable Brea Quinn SPEAKER MOUNTER PROPERTY CONSULTANT Unavailable Brea Quinn SPEAKER MOUNTER PROPERTY CONSULTANT Unavailable Jose Francisco Johnson MD Unavailable Alfonso Renteria MD Unavailable [phone] Esha Grimm PA-C Primary Care Provider [phone] Radha Lomeli APRN PROPERTY CONSULTANT Unavailable Jelena David OD Unavailable Esha Grimm PA-C Unavailable [phone] Valery Veronica PA-C Unavailable [phone] Rey Tay MD Unavailable Rocky Zepeda DO Unavailable Philip Dumont MD Unavailable [phone] Meredith Carrera PA-C Unavailable [phone] Neil Kent MD Unavailable Juan Pablo Emmanuel MD Unavailable [phone] Audrey Waite PA-C Unavailable [phone] JeremíasValery damon PA-C Unavailable [phone] Herminia Hatch MD Unavailable Jelena David OD Unavailable Juan Pablo Emmanuel MD Unavailable Maru Man PA-C Unavailable [phone] Encounter Details Date Type Department Care Team (Late st Contact Info) Description 02/28/2024 [facility] Medical Advice [facility] Gastroenterology Clinic [address] [place] [address] Rain Burnette, RN Social History [...] you attend chur ch or gnosticism services? 1 to 4 times [...] Answer Date Recorded PHQ-2 Score 1 02/07/2024 [facility] - Occupational Stress [...] exercise at this level? 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 Gender Identity Female 03/02/2021 5:45 PM CDT Sexual Orientation Straight 02/28/2020 12 :51 AM CDT documented as of this encounter Plan of Treatment Upcoming Encounters Date Type Department Care Team (Late st Contact Info) Description 10/22/2024 11:00 AM CDT Office Visit [address] [phone] Maru Man PA-C [address] [address] 10/23/2024 PRE VISIT [facility] Neurology [facility] - [address], [address] [place] [address] Johnny Penn MD [address] [place] [address] [place] [address] Previsit 10/23/2024 9:30 AM CDT Office Visit [facility] Neu[facility] [address] [facility], [address] [place] [phone] [place] [address] [place] [address] Johnyn Penn MD [address] [place] 6[address]205 10/24/2024 4:00 PM CDT Office Visit [facility] [address] [facility] [address] [place] [phone] Jelena David, [address] [facility] [place] [address] 10/31/2024 9:15 AM CDT Virtual Visit [facility] Gastroenterology Clinic [address] [phone] Meredith Carrera PA-C [address] [place] [address] 265325 12/20/2024 2:30 PM CDT Office Visit [facility] [address] [place] [address] Esha Grimm PA-C [address] [place] [address] documented as of this encounter Visit Diagnoses Not on filedocumented in this encounter Additional Health Concerns Infection Onset Date Last Indicated Resolved Time Rule Out COVID-19 04/09/2024 04/09/2024 04/10/2024 6:48 PM CDT Rule Out COVID-19 10/04/2024 10/04/2024 10/05/2024 9:42 AM CDT Assessment Noted Time PHQ-9 Depression Total Score: 3 02/07/20 24 9:33 AM CDT documented as of this encounter Care Teams Storeroom Attendant Relationship Specialty Start Date End Date Esha Grimm PA-C [address] [place] [address] PCP - General Family Medicine 05/04/23 [facility] [address] [place] [address] Pharmacist Pharmacist 04/17/21 Rain Galaviz PA-C [address] [place] [address] [address] [facility] [place] [address] Physician Footwear Sales Coordinator Dermatology 04/28/21 Tavia Wyatt MD [address] [place] [address] [address] [facility] [facility] [place] [address] Dermatology 07/14/21 Erica Farrell APRN PROPERTY CONSULTANT [address] [place] [address] Nurse Practitioner Cardiovascular Disease 09/09/21 Rich Barrett MD [address] [place] 870875 Physician Ophthalmology 01/21/22 Neil Kent MD 500 [place] [address] Dermatology 02/24/22 Diana Desir, [facility] [address]33 [place] [address] Assigned MTM Pharmacist 04/07/22 Livan Sharif MD [address] [place], [place] [address] Cardiovascular Disease 05/14/22 Catherine Cm MD [address] [place], [place] [address]45 Cardiovascular Disease 07/21/22 Valery Veronica, PAUcheC 909 [place], [place] 6[address]365 Physician Footwear Sales Coordinator Dermatology 07/21/22 Brea Quinn APRN PROPERTY CONSULTANT 500 [place], [place] 448275 Nurse Practitioner Dermatology 09/21/22 Brea Quinn APRN PROPERTY CONSULTANT [address] [place] [address] 765042 Assigned Surgical Provider 10/09/22 05/01/24 [place] [address] [facility] 300 [place], [place] 439297 Assigned Musculoskeletal Provider 10/09/22 05/01/24 Alfonso Renteria MD [address] [facility] 200 [place], [place] 779446 Assigned Neuroscience Provider 04/02/23 09/29/24 Armani Radha Sia SPEAKER MOUNTER PROPERTY CONSULTANT [address] [place], [place] 363435 Assigned Heart and Vascular Provider 05/28/23 Jelena David OD [address] [facility] [place] [address] MD Ophthalmology 06/15/23 Esha Grimm PA-C [address] [place] [phone] Assigned PCP 07/16/23 Valery Veronica PA-C [address] [place] [address] 492645 Physician Footwear Sales Coordinator Dermatology 09/19/23 Rey Tay MD [address] [place] [address] 046205 Gastroenterology 09/20/23 Rocky Zepeda DO [address] [place] [address] 112975 Physician Gastroenterology 09/20/23 Philip Dumont MD [address] [place] [address] 180745 Physician Ophthalmology 09/22/23 Meredith Carrera PA-C [address] [place] [address] 902905 Assigned Gastroenterology Provider 11/01/23 Neil Kent MD [address] [place] [address] 105900 Dermatology 11/02/23 [place] [address] [place] [address] Neurological Surgery 12/26/23 Audrey Waite PA-C 500 [place] [address] Physician Footwear Sales Coordinator Dermatology 02/28/24 Valery Veronica PA-C 327147 [place] [address] Physician Footwear Sales Coordinator Dermatology 04/10/24 Herminia Hatch MD [facility]5 [place], [place] 47895125 Assigned Rheumatology Provider 07/02/24 Jelena David OD [address] [facility] [place] [address] Ophthalmology 08/30/24 [place] [address] [facility] [place] [address] Assigned Neuroscience Provider 09/30/24 Maru Man PA-C [address] [place] [address] Physician Footwear Sales Coordinator Dermatology 10/03/24 documented as of this encounter
--- OUTSIDE RECORDS SUMMARY | 2024-10-18 19:23 | XMS_ITS | Encounter Summary ---
Author Organization [facility] Address [address] [place] [address] Care Team Providers Care Fabric And Textile Factory Worker Name Role Phone Diana Desir [facility] Unavailable [phone] Rain Galaviz PA-C Unavailable Tavia Wyatt MD Unavailable [phone] Erica Farrell APRN INSULATION MANAGER Unavailable Rich Barrett MD Unavailable [phone] Neil Kent MD Unavailable Diana Dseir [facility] Unavailable Livan Sharif MD Unavailable Catherine Cm MD Unavailable + Valery Veronica PA-C Unavailable Brea Quinn LAMINATED PLASTICS ASSEMBLER AND GLUER INSULATION MANAGER Unavailable Brea Quinn LAMINATED PLASTICS ASSEMBLER AND GLUER INSULATION MANAGER Unavailable Jose Francisco Johnson MD Unavailable Alfonso Renteria MD Unavailable [phone] Esha Grimm PA-C Primary Care Provider Lomeli, Radha E LAMINATED PLASTICS ASSEMBLER AND GLUER INSULATION MANAGER Unavailable Jelena David OD Unavailable [phone] Esha Grimm PA-C Unavailable [phone] Valery Veronica PA-C Unavailable Rey Tay MD Unavailable Duane Rocky Unavailable Philip Dumont MD Unavailable Meredith Carrera PA-C Unavailable Neil Kent MD Unavailable Juan Pablo Emmanuel MD Unavailable Audrey Waite PA-C Unavailable Valery Veronica PA-C Unavailable Herminia Hatch MD Unavailable Jelena David OD Unavailable [phone] Juan Pablo Emmanuel MD Unavailable Maru Man PA-C Unavailable Reason for Visit * Reason Onset Date Comments Call Back 12/21/2023 Schedule appt to brandy Encounter Details Date Type Department Care Team (Late st Contact Info) Description 12/21/2023 Telephone [facility] [address] [facility] [address] [place] [address] Livan Sharif MD [address] [facility] [address] [place] [address] Call Back (Schedule appt tomorrow ) [...] 10/25/2023 [facility] - Occupational Stress Questionnaire Answer [...] at this level? 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 Sharif per msg. Ty-Polo * Telephone Encounter - Carley Myles RN - 12/21/2023 4:16 PM CDT Discussed with patient. Pt states she can't make the OV scheduled for 12/22/23. Pt is stable at this time but was unsure if she should be waiting until Oct to see (only times available). Pt does have OV on 03/06/24 with Radha Lomeli CNP but would like this moved up sooner. Pt also requestto be put on wait list for . Routing to crm architect. Carley ZABALA [facility] * Telephone Encounter - Sandra Whiting - 12/21/2023 12:34 PM CDT [facility] Call Center Phone Message May [...] Description 10/22/2024 11:00 AM CDT Office Visit [facility] [address] [phone] Maru Man PA-C [address] [address] 10/23/2024 PRE VISIT [facility] Neurology Clinics - [address], [address] [place] [address] Johnny Penn MD [address] [place] [address] Previsit 10/23/2024 9:30 AM CDT Office Visit [facility] Neurology [facility] [address] [facility], [address] [place] [phone] [place] [address] [place] [address] Johnny Penn MD [address] [place] 12[address]35 10/24/2024 4:00 PM CDT Office Visit [facility] [address] [facility] [address] [place] [phone] Jelena David, [address] [place] [address] 10/31/2024 9:15 AM CDT Virtual Visit [facility] Gastroenterology [address] [phone] Meredith Carrera PA-C [address] [place] [address] 849955 12/20/2024 2:30 PM CDT Office Visit [facility] [address] [place] [address] Esha Grimm PA-C [address] [place] [address] documented as of this encounter [...] Total Score: 4 06/20/20 23 8:40 AM RENEWALS MANAGER documented as of this encounter Care Teams Fabric And Textile Factory Worker Relationship Specialty Start Date End Date Esha Grimm PA-C [address] [place] [address] PCP - General Family Medicine 05/04/23 Diana Desir, [facility] [address] [place] [address] Pharmacist Pharmacist 04/17/21 Rain Galaviz PA-C [address] [place] [address] [address] [place] [address] Physician Sausage Canner Dermatology 04/28/21 Tavia Wyatt MD [address] [place] [address] [address] [place] [address] Dermatology 07/14/21 Erica Farrell APRN INSULATION MANAGER [address] [place] [address] Nurse Practitioner Cardiovascular Disease 09/09/21 Rich Barrett MD [address] [place] [address] Physician Ophthalmology 01/21/22 Neil Kent MD 500 [place] [address] Dermatology 02/24/22 Diana Desir [facility] 3033 [place] [address] Assigned [facility] Pharmacist 04/07/22 Livan Sharif MD [address] 718895 Cardiovascular Disease 05/14/22 Catherine Cm MD [address] 318335 Cardiovascular Disease 07/21/22 Valery Veronica, PA-C 909 [place] [address] Physician Sausage Canner Dermatology 07/21/22 Brea Quinn APRN INSULATION MANAGER 500 [place] [address] Nurse Practitioner Dermatology 09/21/22 Brea Quinn APRN INSULATION MANAGER [address] [place] [address] Assigned Surgical Provider 10/09/22 05/01/24 [place] [address] [address] Assigned Musculoskeletal Provider 10/09/22 05/01/24 Alfonso Renteria MD [address] [facility] [address] 200 [place] [address] Assigned Neuroscience Provider 04/02/23 09/29/24 Radha Lomeli APRN INSULATION MANAGER [address] [place] [address] Assigned Heart and Vascular Provider 05/28/23 [place] OD [address] [place] [address] MD Ophthalmology 06/15/23 Esha Grimm PA-C [address] [place] [address] Assigned PCP 07/16/23 Valery Veronica PA-C [address] [place] [address] 508145 Physician Sausage Canner Dermatology 09/19/23 Rey Tay MD [address] [place] [address] 660155 Gastroenterology 09/20/23 Rocky Zepeda DO [address] [place] [address] 600225 Physician Gastroenterology 09/20/23 Philip Dumont MD [address] [place] [address] 001695 Physician Ophthalmology 09/22/23 Meredith Carrera PA-C [address] [place] [address] 416995 Assigned Gastroenterology Provider 11/01/23 Neil Kent MD [address] [place] [address] Dermatology 11/02/23 [place] [address] [place] [address] Neurological Surgery 12/26/23 Audrey Waite PA-C 500 [place] [address] Physician Sausage Canner Dermatology 02/28/24 Valery Veronica PA-C 027627 [place], [place] [address] Physician Sausage Canner Dermatology 04/10/24 Herminia Hatch MD [address] [place] [address] [id number] Assigned Rheumatology Provider 07/02/24 Jelena David OD [address] [place] [address] [place] [address] Ophthalmology 08/30/24 [place] [address] [place] [address] Assigned Neuroscience Provider 09/30/24 Maru Man PA-C [address] [place] [address] Physician Sausage Canner Dermatology 10/03/24 documented as of this encounter
--- OUTSIDE RECORDS SUMMARY | 2024-10-18 19:23 | XMS_ITS | Encounter Summary ---
Author Organization [facility] Address [address] [place] [address] Care Team Providers Care Cartography Supervisor Name Role Phone Lita Oseguera Unavailable Unavailable Marija Edgar APRN DUCT LAYER SUPERVISOR Primary Care Provider + Marija Edgar APRN DUCT LAYER SUPERVISOR Unavailable [phone] Keisha Dotson MD Unavailable Diana Desir [facility] Unavailable [phone] Rain Galaviz PA-C Unavailable Tavia Wyatt MD Unavailable Erica Farrell APRN DUCT LAYER SUPERVISOR Unavailable Rich Barrett MD Unavailable [phone] Neil Kent MD Unavailable Diana Desir [facility] Unavailable [phone] Livan Sharif MD Unavailable Catherine Cm MD Unavailable + Valery Veronica PA-C Unavailable [phone] Brea Quinn JET HANDLER DUCT LAYER SUPERVISOR Unavailable Brea Quinn JET HANDLER DUCT LAYER SUPERVISOR Unavailable Jose Francisco Johnson MD Unavailable Catherine Cm MD Unavailable + Sydnie Martinez RN Unavailable Unavailable Alfonso Renteria MD Unavailable [phone] Esha Grimm PA-C Primary Care Provider Cheng Todd PA-C Unavailable Armani Radha Stovall ARLENE DUCT LAYER SUPERVISOR Unavailable Jelena David OD Unavailable Pao Joseph RN Unavailable Unavailable Esha Grimm PA-C Unavailable Valery Veronica PA-C Unavailable Rey Tay MD Unavailable Rocky Zepeda DO Unavailable Philip Dumont MD Unavailable [phone] Meredith Carrera PA-C Unavailable [phone] Neil Kent MD Unavailable Juan Pablo Emmanuel MD Unavailable [phone] Audrey Waite PA-C Unavailable Valery Veronica PA-C Unavailable Herminia Hatch MD Unavailable Jelena David OD Unavailable [phone] Juan Pablo Emmanuel MD Unavailable Maru Man PA-C Unavailable Encounter Details Date Type Department Care Team (Late st Contact Info) Description 01/28/2023 [facility] [place] 290435 [facility] [address] [place] [address] Margaret Rendon, RN Social History Tobacco Use [...] How often do you attend catholic or synagogue serv ices? Never 09/22/2021 Do [...] [facility] - Occupational [...] in a intermediate (including now)? No 09/22/2021 [place] Depression Scale Answer Date Recorded Lam[place] Depression Score 5 01/14/2021 Last EPDS Self Harm Result Not on file 01/14 Education Answer Date Recorded What is the highest level of school you have completed or the highest degree you have received? 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 DAMPPROOFER Gender Identity Female 03/02/2021 5:45 PM CDT [...] Description 10/22/2024 11:00 AM CDT Office Visit [facility] [address] [phone] Maru Man PA-C [address] 93[address] 10/23/2024 PRE VISIT [facility] Neurology [address] 450 [place] [phone] Johnny Penn MD [address] [place] 280[address] Previsit 10/23/2024 9:30 AM CDT Office Visit [facility] Neurology [facility] - [address] [place] [phone] [place] [address] [place] 3877[address] Johnny Penn MD [address] [place] 067975 10/24/2024 4:00 PM CDT Office Visit [facility] [address] [facility] [address] [place] [address] J[place], [place] [address] [facility] [place] [address] 10/31/2024 9:15 AM CDT Virtual Visit [facility] Gastroenterology Clinic [address] 4th [place] [address] Meredith Carrera PA-C [address] [place] [address] 371375 12/20/2024 2:30 PM CDT Office Visit [facility] [address] [place] [address] Esha Grimm PA-C [address] [place] [address] documented as of this encounter [...] documented as of this encounter Care Teams Cartography Supervisor Relationship Specialty Start Date End Date Marija Edgar APRN CNP PCP - General Nurse Practitioner 04/30/20 04/14/23 Esha Grimm PA-C [address] [place] [address] PCP - General Family Medicine 05/04/23 Lita Oseguera Personal Advocate & Liaison (PAL) 02/28/20 03/27/23 Marija Edgar APRN DUCT LAYER SUPERVISOR Assigned PCP 06/08/20 04/29/23 Keisha Dotson MD [address] [place] [address] Assigned Neuroscience Provider 06/04/20 04/01/23 [facility] [address] [place] [address] Pharmacist Pharmacist 04/17/21 Rain Galaviz PA-C [address] [place] [address] [address] [facility] [place] [address] Physician Terminal Supervisor Dermatology 04/28/21 Tavia Wyatt MD [address] [place] [address] [address] [place] [place] [address] Dermatology 07/14/21 Erica Farrell APRN DUCT LAYER SUPERVISOR [address] [place] [address] Nurse Practitioner Cardiovascular Disease 09/09/21 Rich Barrett MD [address] [place] 665945 Physician Ophthalmology 01/21/22 Neil Kent MD 500 [place] [address] Dermatology 02/24/22 Diana Desir, [facility] 3033 [place] [address] Assigned [place] Pharmacist 04/07/22 iLvan Sharif MD [address] [place] [address] Cardiovascular Disease 05/14/22 Catherine Cm MD [address] [place] [address] Cardiovascular Disease 07/21/22 Valery Veronica, PA-C [address] [place] [address] Physician Terminal Supervisor Dermatology 07/21/22 Brea Quinn APRN DUCT LAYER SUPERVISOR 500 [place] [address] Nurse Practitioner Dermatology 09/21/22 Brea Quinn APRN DUCT LAYER SUPERVISOR [address] [place] [address] Assigned Surgical Provider 10/09/22 05/01/24 [place] [address] [place] [address] Assigned Musculoskeletal Provider 10/09/22 05/01/24 Catherine Cm MD [address] [place] [address] Assigned Heart and Vascular Provider 11/13/22 05/27/23 Sydnie Martinez RN Personal Advocate & Liaison (PAL) Family Medicine 03/28/23 07/31/23 Alfonso Renteria MD 5775 [facility] [address] 200 [place] [address] Assigned Neuroscience Provider 04/02/23 09/29/24 Cheng Todd PA-C [address] [place] [address] [id number] Assigned PCP 04/30/23 07/15/23 Radha Lomeli APRN DUCT LAYER SUPERVISOR 6405 [facility] [address] [place], [place] 847205 Assigned Heart and Vascular Provider 05/28/23 Jelena David OD [address] [facility] [address] [place] [phone] Ophthalmology 06/15/23 Pao Joseph RN Personal Advocate & Liaison (PAL) Nurse 08/01/23 11/07/23 Esha Grimm PA-C [address] [place] [address]945483 Assigned PCP 07/16/23 Valery Veronica PA-C [address] [place] [address] 538445 Physician Terminal Supervisor Dermatology 09/19/23 Rey Tay MD [address] [place] [address] [id number] MD Gastroenterology 09/20/23 Rocky Zepeda DO [address] [place] [address] 053585 Physician Gastroenterology 09/20/23 Philip Dumont MD [address] [place] [address] 782985 Physician Ophthalmology 09/22/23 Meredith Carrera PA-C [address] [place] [address] 001065 Assigned Gastroenterology Provider 11/01/23 Neil Kent MD [address] [place] [address] 483410 Dermatology 11/02/23 [place] [address] [address] 171487 Neurological Surgery 12/26/23 Audrey Waite PA-C [address] [place] [address] 514125 Physician Terminal Supervisor Dermatology 02/28/24 Valery Veronica PA-C 923875 [place] [address] Physician Terminal Supervisor Dermatology 04/10/24 Herminia Hatch MD [facility] [place] [address] Assigned Rheumatology Provider 07/02/24 [place] [address] [place] [address] [place] [address] Ophthalmology 08/30/24 [place] [address] [place] [address] Assigned Neuroscience Provider 09/30/24 Maru Man PA-C [address] [place] [address] Physician Terminal Supervisor Dermatology 10/03/24 documented as of this encounter
--- OUTSIDE RECORDS SUMMARY | 2024-10-18 19:23 | XMS_ITS | Encounter Summary ---
Author Organization [facility] Address [address] [place] [address] Care Team Providers Care Embroiderer Hand Name Role Phone Lita Oseguera Unavailable Unavailable Marija Edgar APRN HIGH SCHOOL SOCIAL STUDIES TUTOR Primary Care Provider + Marija Edgar APRN HIGH SCHOOL SOCIAL STUDIES TUTOR Unavailable [phone] Keisha Dotson MD Unavailable Diana eDsir [facility] Unavailable [phone] Rain Galaviz PA-C Unavailable [phone] Tavia Wyatt MD Unavailable Erica Farrell APRN HIGH SCHOOL SOCIAL STUDIES TUTOR Unavailable Rich Barrett MD Unavailable [phone] Neil Kent MD Unavailable Diana Desir [facility] Unavailable [phone] Livan Sharif MD Unavailable Catherine Cm MD Unavailable + Valery Veronica PA-C Unavailable Brea Quinn LITIGATION CLAIM REPRESENTATIVE HIGH SCHOOL SOCIAL STUDIES TUTOR Unavailable [phone] Brea Quinn LITIGATION CLAIM REPRESENTATIVE HIGH SCHOOL SOCIAL STUDIES TUTOR Unavailable [phone] Jose Francisco Johnson MD Unavailable Catherine Cm MD Unavailable + Sydnie Martinez RN Unavailable Unavailable Alfonso Renteria MD Unavailable [phone] Esha Grimm PA-C Primary Care Provider Cheng Todd PA-C Unavailable Radha Lomeli APRN HIGH SCHOOL SOCIAL STUDIES TUTOR Unavailable Jelena David OD Unavailable [phone] Pao Joseph RN Unavailable Unavailable Esha Grimm PA-C Unavailable [phone] Valery Veronica PA-C Unavailable Rey Tay MD Unavailable Rocky Zepeda DO Unavailable Philip Dumont MD Unavailable [phone] Meredith Carrera PA-C Unavailable Neil Kent MD Unavailable Juan Pablo Emmanuel MD Unavailable [phone] Audrey Waite PA-C Unavailable Valery Veronica PA-C Unavailable Herminia Hatch MD Unavailable Jelena David OD Unavailable Juan Pablo Emmanuel MD Unavailable Maru Man PA-C Unavailable Encounter Details Date Type Department Care Team (Late st Contact Info) Description 12/23/2022 [facility] [address] [address] Lauren Claudio PA-C [address] [place] [address] Social History Tobacco Use Types Packs/Day Years [...] How often do you attend rastafarian or oriental orthodox serv ices? Never 09/22/2021 [...] a care home (including now)? No 09/22/2021 Allons Depression Scale Answer Date Recorded All[place] Depression Score 5 01/14/2021 Last EPDS Self Harm Result Not on file 01/14 Education Answer Date Recorded What is the highest level of school you have completed or the highest degree you have received? 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 Gender Identity Female 03/02/2021 5:45 [...] Description 10/22/2024 11:00 AM CDT Office Visit [facility] [address] [phone] Maru Man PA-C [address] 909490 10/23/2024 PRE VISIT [facility] Neurology [address] [phone] Johnny Penn MD [address] [place] 437975 Previsit 10/23/2024 9:30 AM CDT Office Visit [facility] Neurology [facility] - [address] [place] [phone] [place] [address] [place] [address] [place] [address] Johnny Penn MD [address] [place] [address] 10/24/2024 4:00 PM CDT Office Visit [address] [place] [phone] Frankie Jelena Radha, [place] [address] [facility] [address] [place] [address] 10/31/2024 9:15 AM CDT Virtual Visit [facility] Gastroenterology [address] 4th [place] [phone] Meredith Carrera PA-C [address] [place] [address] 12/20/2024 2:30 PM CDT Office Visit [facility] [address] [place] [phone] Esha Grimm PA-C [address] [place] [address] documented as of this encounter [...] documented as of this encounter Care Teams Embroiderer Hand Relationship Specialty Start Date End Date Marija Edgar APRN CNP PCP - General Nurse Practitioner 04/30/20 04/14/23 Esha Grimm PA-C [address] [facility] [place] [address] PCP - General Family Medicine 05/04/23 Lita Oseguera Personal Advocate & Liaison (PAL) 02/28/20 03/27/23 Marija Edgar APRN HIGH SCHOOL SOCIAL STUDIES TUTOR Assigned PCP 06/08/20 04/29/23 Keisha Dotson MD 909 [place], [place] 322955 Assigned Neuroscience Provider 06/04/20 04/01/23 Diana Desir, [facility] [address] [place], [place] 027836 Pharmacist Pharmacist 04/17/21 Rain Galaviz PA-C [address] [place] [address] [address] [facility] [place] [address] Physician Concrete Swimming Pool Installer Dermatology 04/28/21 Tavia Wyatt MD [address] [place] [address] [address] [facility] [place] [address] Dermatology 07/14/21 Erica Farrell APRN HIGH SCHOOL SOCIAL STUDIES TUTOR [address] [place] [address] Nurse Practitioner Cardiovascular Disease 09/09/21 Rich aBrrett MD [address] [place] [address] Physician Ophthalmology 01/21/22 Neil Kent MD 500 [place] [address] Dermatology 02/24/22 Diana Desir, [facility] 3033 [place] [address] Assigned [place] Pharmacist 04/07/22 Livan Sharif MD [address] [facility] [address] [place] [address] Cardiovascular Disease 05/14/22 Catherine Cm MD [address] [place] [id number] [place] 223135 Cardiovascular Disease 07/21/22 Valery Veronica, PA-C 909 [place] [address] Physician Concrete Swimming Pool Installer Dermatology 07/21/22 Brea Quinn APRN HIGH SCHOOL SOCIAL STUDIES TUTOR 500 [place] [address] Nurse Practitioner Dermatology 09/21/22 Brea Quinn APRN HIGH SCHOOL SOCIAL STUDIES TUTOR 6401 [place] [address] Assigned Surgical Provider 10/09/22 05/01/24 [place] [address] [facility] [address] [place] [address] Assigned Musculoskeletal Provider 10/09/22 05/01/24 Catherine Cm MD [address] [place], [place] 770895 Assigned Heart and Vascular Provider 11/13/22 05/27/23 Sydnie Martinez RN Personal Advocate & Liaison (PAL) Family Medicine 03/28/23 07/31/23 Alfonso Renteria MD 5775 [facility] 200 [place] [address] Assigned Neuroscience Provider 04/02/23 09/29/24 Cheng Todd PA-C [address] [place] [address] [id number] Assigned PCP 04/30/23 07/15/23 Radha Lomeli APRN HIGH SCHOOL SOCIAL STUDIES TUTOR [address] [place] [address] Assigned Heart and Vascular Provider 05/28/23 Jelena David OD [address] [facility] [place] [address] Ophthalmology 06/15/23 Pao Joseph RN Personal Advocate & Liaison (PAL) Nurse 08/01/23 11/07/23 Esha Grimm PA-C [address] [place] [address] Assigned PCP 07/16/23 Valery Veronica PA-C 909 [place] [address] Physician Concrete Swimming Pool Installer Dermatology 09/19/23 Rey Tay MD [address] [place] [address] Gastroenterology 09/20/23 Rocky Zepeda DO [address] [place] [address] Physician Gastroenterology 09/20/23 Philip Dumont MD [address] [place] [address] Physician Ophthalmology 09/22/23 Meredith Carrera PA-C [address] [place] [address] Assigned Gastroenterology Provider 11/01/23 Neil Kent MD [address] [place] [address] 503690 MD Dermatology 11/02/23 [place] [address] [place] [address] 095967 Neurological Surgery 12/26/23 Audrey Waite PA-C [address] [place] [address] Physician Concrete Swimming Pool Installer Dermatology 02/28/24 Valery Veronica PA-C 050148 [place], [place] [address] Physician Concrete Swimming Pool Installer Dermatology 04/10/24 Herminia Hatch MD [address] [place] [address] [id number] Assigned Rheumatology Provider 07/02/24 Jelena David OD [address] [facility] [place] [address] Ophthalmology 08/30/24 [place] [address] [place] 514117 Assigned Neuroscience Provider 09/30/24 Maru Man PA-C [address] [place] [address] 250910 Physician Concrete Swimming Pool Installer Dermatology 10/03/24 documented as of this encounter
--- OUTSIDE RECORDS SUMMARY | 2024-10-18 19:23 | XMS_ITS | Encounter Summary ---
Author Organization [place] Address [address] [place] [address] Care Team Providers Care Harmonic Analyst Name Role Phone Diana Desir [facility] Unavailable Rain Galaviz PA-C Unavailable Tavia Wyatt MD Unavailable [phone] Erica Farrell APRN SHIPPING CLERK Unavailable Rich Barrett MD Unavailable [phone] Neil Kent MD Unavailable Diana Desir [facility] Unavailable Livan Sharif MD Unavailable Catherine Cm MD Unavailable + Valery Veronica PA-C Unavailable [phone] Brea Quinn MAINTENANCE SHOP WELDER SHIPPING CLERK Unavailable Brea Quinn MAINTENANCE SHOP WELDER SHIPPING CLERK Unavailable Jose Francisco Johnson MD Unavailable Alfonso Renteria MD Unavailable [phone] Esha Grimm PA-C Primary Care Provider Radha Lomeli APRN SHIPPING CLERK Unavailable Jelena David OD Unavailable [phone] Esha Grimm PA-C Unavailable [phone] Valery Veronica PA-C Unavailable Rey Tay MD Unavailable Rocky Zepeda DO Unavailable Philip Dumont MD Unavailable Meredith Carrera PA-C Unavailable [phone] Neil Kent MD Unavailable Juan Pablo Emmanuel MD Unavailable [phone] Audrey Waite PA-C Unavailable [phone] JeremíasValery damon PA-C Unavailable [phone] Herminia Hathc MD Unavailable Jelena David OD Unavailable Juan Pablo Emmanuel MD Unavailable Maru Man PA-C Unavailable [phone] Encounter Details Date Type Department Care Team (Late st Contact Info) Description 02/01/2024 MyC Medical Advice [facility] Neurology [address], [address] [place] [address] Macy Pinedo, RN Social History Tobacco [...] Recorded PHQ-2 Score 0 10/25/2023 [facility] - Occupational Stress Questionnaire Answer Date Recorded [...] exercise at this level? 30 min 03/10/2023 [place] Depression Scale Answer Date Recorded [place] [...] PM CDT Legal Sex Female 4:13 AM APPEALS RN Gender Identity Female 03/02/2021 5:45 PM CDT Sexual Orientation Straight 02/28/2020 12 :51 AM CDT documented as of this encounter Plan of Treatment Upcoming Encounters Date Type Department Care Team (Late st Contact Info) Description 10/22/2024 11:00 AM CDT Office Visit [address] [phone] Maru Man PA-C [address] [address] 10/23/2024 PRE VISIT [facility] Neurology [facility] - [address], [address] [place] [address] Johnny Penn MD [address] [place] [address] [place] [address] Previsit 10/23/2024 9:30 AM CDT Office Visit [facility] Neurology [facility] [place] [address] [facility], [address] [place] [phone] [place] [address] [place] [address] Johnny Penn MD [address] [place] [place] [address] 10/24/2024 4:00 PM CDT Office Visit [facility] [address] [facility] [address] [facility] [address] [place] [phone] Jelena David, [address] [facility] [place] [address] 10/31/2024 9:15 AM CDT Virtual Visit [facility] G[facility]enterology Clinic [address] [phone] Meredith Carrera PA-C [address] [place] [address] 12/20/2024 2:30 PM CDT Office Visit [facility] [address] [place] [address] Esha Grimm PA-C [address] [place] [address] documented as of this encounter Visit Diagnoses Not on filedocumented in this encounter Additional Health Concerns Infection Onset Date Last Indicated Resolved Time Rule Out COVID-19 04/09/2024 04/09/2024 04/10/2024 6:48 PM CDT Rule Out COVID-19 10/04/2024 10/04/2024 10/05/2024 9:42 AM CDT Assessment Noted Time PHQ-9 Depression Total Score: 4 06/20/20 23 8:40 AM APPEALS RN documented as of this encounter Care Teams Harmonic Analyst Relationship Specialty Start Date End Date Esha Grimm PA-C [address] [place] [address] PCP - General Family Medicine 05/04/23 [facility] [address] [place] [address] Pharmacist Pharmacist 04/17/21 Rain Galaviz PA-C [address] [place] [address] DR RAZO [facility] [place] [address] Physician Social Service Agency Director Dermatology 04/28/21 Tavia Wyatt MD [address] [place] [address] DR RAZO [facility] [place] [address] Dermatology 07/14/21 Erica Farrell APRN SHIPPING CLERK [address] [place] [address] Nurse Practitioner Cardiovascular Disease 09/09/21 Rich Barrett MD [address] [place] [address] Physician Ophthalmology 01/21/22 Neil Kent MD 500 [place] [address] Dermatology 02/24/22 Diana Desir, [facility] 3033 [place] [address] Assigned MTM Pharmacist 04/07/22 Livan Sharif MD [address] [place] [address] Cardiovascular Disease 05/14/22 Catherine Cm MD [address] [place], [place] 982705 Cardiovascular Disease 07/21/22 Valery Veronica, PAUcheC 909 [place], [place] 719025 Physician Social Service Agency Director Dermatology 07/21/22 Brea Quinn APRN SHIPPING CLERK 500 [place], [place] 234155 Nurse Practitioner Dermatology 09/21/22 Brea Quinn APRN SHIPPING CLERK [address] [place] [address] Assigned Surgical Provider 10/09/22 05/01/24 [place] [address] [facility] 300 [place] [address] Assigned Musculoskeletal Provider 10/09/22 05/01/24 Alfonso Renteria MD [address] [facility] 200 [place], [place] 14[address]56 Assigned Neuroscience Provider 04/02/23 09/29/24 Radha Lomeli APRN SHIPPING CLERK [address] [facility] [address] [place], [place] 7[address] Assigned Heart and Vascular Provider 05/28/23 Jelena David OD [address] [facility] [place] [address] MD Ophthalmology 06/15/23 Esha Grimm PA-C [address] [place] [phone] Assigned PCP 07/16/23 Valery Veronica PA-C [address] [place] [address] 840405 Physician Social Service Agency Director Dermatology 09/19/23 Rey Tay MD [address] [place] [address] 927755 Gastroenterology 09/20/23 Rocky Zepeda DO [address] [place] [address] 592335 Physician Gastroenterology 09/20/23 Philip Dumont MD [address] [place] [address] 161215 Physician Ophthalmology 09/22/23 Meredith Carrera PA-C [address] [place] [address] 351975 Assigned Gastroenterology Provider 11/01/23 Neil Kent MD [address] 978890 Dermatology 11/02/23 [place] [address] [place] [address] Neurological Surgery 12/26/23 Audrey Waite PA-C 500 [place] [address] Physician Social Service Agency Director Dermatology 02/28/24 Valery Veronica PA-C 299565 [place], [place] [address] Physician Social Service Agency Director Dermatology 04/10/24 Herminia Hatch MD [facility]5 [place], [place] 93582125 Assigned Rheumatology Provider 07/02/24 Jelena David OD [address] [facility] [place] [address] Ophthalmology 08/30/24 [place] [address] [place] [address] Assigned Neuroscience Provider 09/30/24 Maru Man PA-C [address] [place] [address] 249230 Physician Social Service Agency Director Dermatology 10/03/24 documented as of this encounter
--- OUTSIDE RECORDS SUMMARY | 2024-10-18 19:23 | XMS_ITS | Encounter Summary ---
Author Organization [facility] Address [address] [place] [address] Care Team Providers Care Committee Member Name Role Phone Lita Oseguera Unavailable Unavailable Marija Edgar APRN FLANGING MACHINE OPERATOR Primary Care Provider + Marija Edgar APRN FLANGING MACHINE OPERATOR Unavailable [phone] Keisha Dotson MD Unavailable [phone] Diana Desir [facility] Unavailable Rain Galaviz PA-C Unavailable [phone] Tavia Wyatt MD Unavailable Erica Farrell APRN FLANGING MACHINE OPERATOR Unavailable Rich Barrett MD Unavailable [phone] Neil Kent MD Unavailable Diana Desir [facility] Unavailable Livan Sharif MD Unavailable Catherine Cm MD Unavailable + Valery Veronica PA-C Unavailable Brea Quinn CERAMIC ENGINEER FLANGING MACHINE OPERATOR Unavailable Brea Quinn CERAMIC ENGINEER FLANGING MACHINE OPERATOR Unavailable Jose Francisco Johnson MD Unavailable Catherine Cm MD Unavailable + Sydnie Martinez RN Unavailable Unavailable Alfonso Renteria MD Unavailable [phone] Esha Grimm PA-C Primary Care Provider Cheng Todd PA-C Unavailable Radha Lomeli APRN FLANGING MACHINE OPERATOR Unavailable Jelena David OD Unavailable Pao Joseph RN Unavailable Unavailable Esha Grimm PA-C Unavailable [phone] Valery Veronica PA-C Unavailable Rey Tay MD Unavailable Rocky Zepeda DO Unavailable Philip Dumont MD Unavailable [phone] Meredith Carrera PA-C Unavailable Neil Kent MD Unavailable Juan Pablo Emmanuel MD Unavailable [phone] Audrey Waite PA-C Unavailable Valery Veronica PA-C Unavailable Herminia Hatch MD Unavailable Jelena David OD Unavailable Juan Pablo Emmanuel MD Unavailable [phone] Maru Man PA-C Unavailable Encounter Details Date Type Department Care Team (Late st Contact Info) Description 01/10/2023 [facility] [address] [address] Lauren Claudio PA-C [address] [place] [address] Social History Tobacco Use Types Packs/Day Years [...] How often do you attend congregational or samaritan serv ices? Never 09/22/2021 Do [...] in a prison (including now)? No 09/22/2021 [place] Depression Scale Answer Date Recorded [place] Depression Score 5 01/14/2021 Last EPDS Self Harm Result Not on file 01/14 Education Answer Date Recorded What is the highest level of school you have completed or the highest degree you have received? 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 Gender Identity Female 03/02/2021 5:45 PM [...] - 02/03/2023 11:52 AM CDT Incoming call Industrial Cook: Rosalva [place] [facility] referral following up on [facility] med information that is needed to be faxed at [phone] Erica David MA documented in this encounter Plan of Treatment Upcoming Encounters Date Type Department Care Team (Late st Contact Info) Description 10/22/2024 11:00 AM CDT Office Visit [address] [phone] Maru Man PA-C [address] [place] [address] 835210 10/23/2024 PRE VISIT [facility] Neurology [facility] [address] [facility], [address] [place] [phone] Johnny Penn MD [address] [place] 36[address]55 Previsit 10/23/2024 9:30 AM CDT Office Visit [facility] Neurology [facility] [address] [place] [address], [address] [place] [phone] [place] [address] [place], [place] 5770[address] Johnny Penn MD [address] [place], [place] 29[address] 10/24/2024 4:00 PM CDT Office Visit [facility] [address] [facility] [address] [place] [phone] Jelena Daivd, [address] [facility] [place] [address] 10/31/2024 9:15 AM CDT Virtual Visit [facility] G[facility]ology Clinic [address]th [place] [phone] Meredith Carrera PA-C [address] [place], [place] 124475 12/20/2024 2:30 PM CDT Office Visit [facility] [address] [place] [phone] Esha Grimm PA-C [address] [place] [address] documented as of this encounter [...] documented as of this encounter Care Teams Committee Member Relationship Specialty Start Date End Date Marija Edgar APRN FLANGING MACHINE OPERATOR PCP - General Nurse Practitioner 04/30/20 04/14/23 Esha Grimm PA-C [address] [place] [phone] PCP - General Family Medicine 05/04/23 Lita Oseguera Personal Advocate & Liaison (PAL) 02/28/20 03/27/23 Marija Edgar APRN FLANGING MACHINE OPERATOR Assigned PCP 06/08/20 04/29/23 Keisha Dotson MD [address] [place], [place] 516775 Assigned Neuroscience Provider 06/04/20 04/01/23 Diana Desir [facility] 3033 [place], [place] 751586 Pharmacist Pharmacist 04/17/21 Rain Galaviz PA-C [address] [place] [address] DR RAZO [place] [address] Physician Safety Equipment Testing Specialist Dermatology 04/28/21 Tavia Wyatt MD [address] [place] [address] [address] RAZO [place] [address] Dermatology 07/14/21 Erica Farrell APRN FLANGING MACHINE OPERATOR [address] [place] [address] Nurse Practitioner Cardiovascular Disease 09/09/21 Rich Barrett MD [address] [place] 65[address]15 Physician Ophthalmology 01/21/22 Neil Kent MD 500 [place], [place] 438815 Dermatology 02/24/22 Diana Desir, [facility] [address] [place] [address] Assigned MTM Pharmacist 04/07/22 Livan Sharif MD [address] [place] 374795 Cardiovascular Disease 05/14/22 Catherine Cm MD [address] [place] [address] Cardiovascular Disease 07/21/22 Valery Veronica PA-C 909 [place] [address] Physician Safety Equipment Testing Specialist Dermatology 07/21/22 Brea Quinn APRN FLANGING MACHINE OPERATOR 500 [place] [address] Nurse Practitioner Dermatology 09/21/22 Brea Quinn APRN FLANGING MACHINE OPERATOR 6401 [place], [place] 502962 Assigned Surgical Provider 10/09/22 05/01/24 [place] [address] [facility] 300 [place], [place] 0[address]287 Assigned Musculoskeletal Provider 10/09/22 05/01/24 Catherine Cm MD [address] [facility] [address] [place], [place] 598505 Assigned Heart and Vascular Provider 11/13/22 05/27/23 Sydnie Martinez RN Personal Advocate & Liaison (PAL) Family Medicine 03/28/23 07/31/23 Alfonso Renteria MD 5775 [facility] 200 [place], [place] 0[address]846 Assigned Neuroscience Provider 04/02/23 09/29/24 Cheng Todd PA-C [address] [place] [address] Assigned PCP 04/30/23 07/15/23 Radha Lomeli APRN FLANGING MACHINE OPERATOR [address] [place] [address] Assigned Heart and Vascular Provider 05/28/23 Jelena David OD [address] [facility] [place] [address] MD Ophthalmology 06/15/23 Pao Joseph, VJ Personal Advocate & Liaison (PAL) Nurse 08/01/23 11/07/23 Esha Grimm PA-C [address] [place] [phone] Assigned PCP 07/16/23 Valery Veronica PA-C [address] [place] [address] 767105 Physician Safety Equipment Testing Specialist Dermatology 09/19/23 Rey Tay MD [address] [place] [address] 487985 Gastroenterology 09/20/23 Rocky Zepeda DO [address] [place] [address] 688565 Physician Gastroenterology 09/20/23 Philip Dumont MD [address] [place] [address] 342275 Physician Ophthalmology 09/22/23 Meredith Carrera PA-C [address] [place] [address] 135655 Assigned Gastroenterology Provider 11/01/23 Neil Kent MD [address] [place] [address] 911300 Dermatology 11/02/23 [place] [address] [place] [address] Neurological Surgery 12/26/23 Audrey Waite PA-C 500 [place] [address] Physician Safety Equipment Testing Specialist Dermatology 02/28/24 Valery Veronica PA-C 137267 [place], [place] [address] Physician Safety Equipment Testing Specialist Dermatology 04/10/24 Herminia Hatch MD [address] [place] [address] 50728125 Assigned Rheumatology Provider 07/02/24 Jelena David OD [address] [place] [address] [place] [address] Ophthalmology 08/30/24 [place] [address] [place] [address] Assigned Neuroscience Provider 09/30/24 Maru Man PA-C [address] [place] [address] Physician Safety Equipment Testing Specialist Dermatology 10/03/24 documented as of this encounter
--- OUTSIDE RECORDS SUMMARY | 2024-10-18 19:23 | XMS_ITS | Encounter Summary ---
Author Organization [facility] Address [address] [place] [address] Care Team Providers Care Undercover Agent Name Role Phone Diana Desir [facility] Unavailable Rain Galaviz PA-C Unavailable Tavia Wyatt MD Unavailable [phone] Erica Farrell APRN DOBIE MAN Unavailable Rich Barrett MD Unavailable [phone] Neil Kent MD Unavailable Diana Desir [facility] Unavailable Livan Sharif MD Unavailable Catherine Cm MD Unavailable + Valery Veronica PA-C Unavailable Brea Quinn CORPORATE EVENTS DIRECTOR DOBIE MAN Unavailable [phone] Brea Quinn CORPORATE EVENTS DIRECTOR DOBIE MAN Unavailable Jose Francisco Johnson MD Unavailable Alfonso Renteria MD Unavailable [phone] Esha Grimm PA-C Primary Care Provider Radha Lomeli APRN DOBIE MAN Unavailable Tommy Davidmao Templetone OD Unavailable [phone] Pao Joseph RN Unavailable Unavailable AlfaJesusEsha M PA-C Unavailable [phone] Valery Veronica PA-C Unavailable Rey Tay MD Unavailable Rocky Zepeda DO Unavailable Philip Dumont MD Unavailable Meredith Carrera PA-C Unavailable [phone] Niel Kent MD Unavailable Juan Pablo Emmanuel MD Unavailable [phone] Audrey Waite PA-C Unavailable [phone] Valery Veronica PA-C Unavailable Herminia Hatch MD Unavailable Jelena David OD Unavailable [phone] Juan Pablo Emmanuel MD Unavailable Maru Man PA-C Unavailable Encounter Details Date Type Department Care Team (Late st Contact Info) Description 10/25/2023 [facility] Medical Advice [facility] Gastroenterology Clinic [address] [address] Nelly [place], RD [address] [place] [address] Social History Tobacco Use Types [...] Answer Date Recorded PHQ-2 Score 0 10/25/2023 [facility] [...] exercise at this level? 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 Neurology [address], [address] [place] [address] Johnny Penn MD [address] [place] 29[address] Previsit 10/23/2024 9:30 AM CDT Office Visit [facility] Neurology [address], [address] [place] [phone] [place] [address] [place], [place] 139[address] Johnny Penn MD [address] [place] 0[address]15 10/24/2024 4:00 PM CDT Office Visit [facility] [address] [facility] [address] [place] [phone] Jelena David, [address] [facility] [place] [address] 10/31/2024 9:15 AM CDT Virtual Visit [facility] Gastroenterology Clinic [address] 4th [place] [phone] Meredith Carrera PA-C [address] [place] [address] 893905 12/20/2024 2:30 PM CDT Office Visit [facility] [address] [place] [address] Esha Grimm PA-C [address] [place] [address] documented as of this encounter Visit Diagnoses Not on filedocumented in this encounter Additional Health Concerns Infection Onset Date Last Indicated Resolved Time Rule Out COVID-19 12/26/2023 12/26/2023 12/26/2023 9:50 AM CDT Rule Out COVID-19 04/09/2024 04/09/2024 04/10/2024 6:48 PM CDT Rule Out COVID-19 10/04/2024 10/04/2024 10/05/2024 9:42 AM CDT Assessment Noted Time PHQ-9 Depression Total Score: 4 06/20/20 8:40 AM SANDWICH BOARD CARRIER documented as of this encounter Care Teams Undercover Agent Relationship Specialty Start Date End Date Esha Grimm PA-C [address] [place] [address] PCP - General Family Medicine 05/04/23 [facility] 3033 [place] [address] Pharmacist Pharmacist 04/17/21 Rain Galaviz PA-C [address] [place] [address] [address] [place] [address] Physician Fast Food Assistant Restaurant Manager Dermatology 04/28/21 Tavia Wyatt MD [address] [place] [address] [address] [place] [address] Dermatology 07/14/21 Erica Farrell APRN DOBIE MAN [address] [place] [address] Nurse Practitioner Cardiovascular Disease 09/09/21 Rich Barrett MD [address] [place] [address] Physician Ophthalmology 01/21/22 Neil Kent MD 500 [place] [address] Dermatology 02/24/22 Diana Desir, [facility] [address] [place] [address] Assigned MTM Pharmacist 04/07/22 Livan Sharif MD [address] [place] 077545 Cardiovascular Disease 05/14/22 Catherine Cm MD [address] [place] 305675 Cardiovascular Disease 07/21/22 Valery Veronica, PA-C 909 [place], [place] [address] Physician Fast Food Assistant Restaurant Manager Dermatology 07/21/22 Brea Quinn APRN DOBIE MAN 500 [place] [address] Nurse Practitioner Dermatology 09/21/22 Brea Quinn APRN DOBIE MAN 6401 [facility] [place] 308392 Assigned Surgical Provider 10/09/22 05/01/24 [place] [address] [place] [address] Assigned Musculoskeletal Provider 10/09/22 05/01/24 Alfonso Renteria MD [address] [facility] [address] [place], [place] 00[address]56 Assigned Neuroscience Provider 04/02/23 09/29/24 Radha Lomeli APRN DOBIE MAN [address] [facility] [address] [place], [place] 465395 Assigned Heart and Vascular Provider 05/28/23 Jelena David OD [address] [facility] [address] [place] [phone] Ophthalmology 06/15/23 Pao Joseph, VJ Personal Advocate & Liaison (PAL) Nurse 08/01/23 11/07/23 Esha Grimm PA-C [address] [place] [address]83 Assigned PCP 07/16/23 Valery Veronica PA-C [address] [place] [address] 772705 Physician Fast Food Assistant Restaurant Manager Dermatology 09/19/23 Rey Tay MD [address] [place] [address] 947725 MD Gastroenterology 09/20/23 Rocky Zepeda DO [address] [place] [address] 424745 Physician Gastroenterology 09/20/23 Philip Dumont MD [address] [place] [address] 953685 Physician Ophthalmology 09/22/23 Meredith Carrera PA-C 909 [place] [address] Assigned Gastroenterology Provider 11/01/23 Neil Kent MD [address] [place] [address] Dermatology 11/02/23 [place] [address] [place], [place] 903247 Neurological Surgery 12/26/23 Audrey Waite PA-C 500 [place] [address] Physician Fast Food Assistant Restaurant Manager Dermatology 02/28/24 Valery Veronica PA-C 325566 [address], [place] 404269 Physician Fast Food Assistant Restaurant Manager Dermatology 04/10/24 Herminia Hatch MD [facility]5 [place], [place] 24442125 Assigned Rheumatology Provider 07/02/24 [place] [address] [place] [address] [place] [address] Ophthalmology 08/30/24 [place] [address] [place] [address] Assigned Neuroscience Provider 09/30/24 Maru Man PA-C [address] [place] [address] Physician Fast Food Assistant Restaurant Manager Dermatology 10/03/24 documented as of this encounter
--- OUTSIDE RECORDS SUMMARY | 2024-10-18 19:23 | XMS_ITS | Encounter Summary ---
Author Organization [place] Address [address] [place] [address] Care Team Providers Care Pastoral Counselor Name Role Phone Diana Desir [facility] Unavailable Rain Galaviz PA-C Unavailable Tavia Wyatt MD Unavailable [phone] Erica Farrell APRN SUGAR GRINDER Unavailable Rich Barrett MD Unavailable [phone] Neil Kent MD Unavailable Diana Desir [facility] Unavailable Livan Sharif MD Unavailable Catherine Cm MD Unavailable + Valery Veronica PA-C Unavailable Brea Quinn FLUSH TESTER SUGAR GRINDER Unavailable [phone] Brea Quinn FLUSH TESTER SUGAR GRINDER Unavailable [phone] Jose Francisco Johnson MD Unavailable Alfonso Renteria MD Unavailable [phone] Esha Grimm PA-C Primary Care Provider Radha Lomeli APRN SUGAR GRINDER Unavailable Jelena David OD Unavailable [phone] Esha Grimm PA-C Unavailable [phone] JeremíasValery damon PA-C Unavailable Rey Tay MD Unavailable Rocky Zepeda DO Unavailable Philip Dumont MD Unavailable [phone] Meredith Carrera PA-C Unavailable Neil Kent MD Unavailable Juan Pablo Emmanuel MD Unavailable Audrey Waite PA-C Unavailable [phone] JeremíasValery damon PA-C Unavailable Herminia Hatch MD Unavailable Jelena David OD Unavailable Juan Pablo Emmanuel MD Unavailable Maru Man PA-C Unavailable [phone] Encounter Details Date Type Department Care Team (Late st Contact Info) Description 11/16/2023 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 Gender Identity Female 03/02/2021 5:45 PM CDT Sexual Orientation Straight 02/28/2020 12 :51 AM CDT documented as of this encounter Plan of Treatment Upcoming Encounters Date Type Department Care Team (Late st Contact Info) Description 10/22/2024 11:00 AM CDT Office Visit [address] [phone] Maru Man PA-C [address] [address] 10/23/2024 PRE VISIT [facility] Neurology [facility] - [address], [address] [place] [address] Johnny Penn MD [address] [address] Previsit 10/23/2024 9:30 AM CDT Office Visit [facility] Neurology [facility] [address] [facility], [address] [place] [phone] [place] [address] [place] [address] Johnny Penn MD [address] [place] [place] [address] 10/24/2024 4:00 PM CDT Office Visit [facility] [address] [facility] [address] [place] [phone] Jelena David, [address] [place] [address] 10/31/2024 9:15 AM CDT Virtual Visit [facility] Gastroenterology [address] [phone] Meredith Carrera PA-C [address] [place] [address] 580[address] 12/20/2024 2:30 PM CDT Office Visit [facility] [address] [place] [address] Esha Grimm PA-C [address] [place] [address] documented as of this encounter Visit Diagnoses Not on filedocumented in this encounter Additional Health Concerns Infection Onset Date Last Indicated Resolved Time Rule Out COVID-19 12/26/2023 12/26/2023 12/26/2023 9:50 AM CDT Rule Out COVID-19 04/09/2024 04/09/2024 04/10/2024 6:48 PM CDT Rule Out COVID-19 10/04/2024 10/04/2024 10/05/2024 9:42 AM CDT Assessment Noted Time PHQ-9 Depression Total Score: 4 06/20/20 8:40 AM CONTRACTS ATTORNEY documented as of this encounter Care Teams Pastoral Counselor Relationship Specialty Start Date End Date Esha Grimm PA-C [address] [place] [address] PCP - General Family Medicine 05/04/23 Diana Desir, [facility] 30[address] [place] [address] Pharmacist Pharmacist 04/17/21 Rain Galaviz PA-C [address] [place] [address] [address] [place] [address] Physician Fan Blade Aligner Dermatology 04/28/21 Tavia Wyatt MD [address] [place] [address] [address] [place] [address] Dermatology 07/14/21 Erica Farrell APRN SUGAR GRINDER [address] [place] [address] Nurse Practitioner Cardiovascular Disease 09/09/21 Rich Barrett MD [address] [place] [address] Physician Ophthalmology 01/21/22 Neil Kent MD 500 [place] [address] Dermatology 02/24/22 Diana Desir, [facility] [address] [place], [place] 384476 Assigned [place] Pharmacist 04/07/22 Livan Sharif MD [address] [id number] [place], [place] 6[address]35 Cardiovascular Disease 05/14/22 Catherine Cm MD [address] 2480000 [place], [place] 0[address] Cardiovascular Disease 07/21/22 Valery Veronica, PA-C [address] [place] [address] 892825 Physician Fan Blade Aligner Dermatology 07/21/22 Brea Quinn APRN SUGAR GRINDER [address] [place] [address] 895825 Nurse Practitioner Dermatology 09/21/22 Brea Quinn APRN SUGAR GRINDER [address] [place] [address] 076982 Assigned Surgical Provider 10/09/22 05/01/24 [place] [address] 032897 Assigned Musculoskeletal Provider 10/09/22 05/01/24 Alfonso Renteria MD [address] [address] Assigned Neuroscience Provider 04/02/23 09/29/24 Radha Lomeli APRN SUGAR GRINDER [address] [place] [address] Assigned Heart and Vascular Provider 05/28/23 Jelena David OD [address] [facility] [place] [address] MD Ophthalmology 06/15/23 Esha Grimm PA-C [address] [place] [phone] Assigned PCP 07/16/23 Valery Veronica PA-C [address] [place] [address] 665865 Physician Fan Blade Aligner Dermatology 09/19/23 Rey Tay MD [address] [place] [address] 529915 Gastroenterology 09/20/23 Rocky Zepeda DO [address] [place] [address] 696725 Physician Gastroenterology 09/20/23 Philip Dumont MD [address] [place] [address] 673065 Physician Ophthalmology 09/22/23 Meredith Carrera PA-C [address] [place] [address] 723115 Assigned Gastroenterology Provider 11/01/23 Neil Kent MD [address] [place] [address] Dermatology 11/02/23 [place] [address] [place] [address] Neurological Surgery 12/26/23 Audrey Waite PA-C 500 [place] [address] Physician Fan Blade Aligner Dermatology 02/28/24 Valery Veronica PA-C 691044 [address] [address] Physician Fan Blade Aligner Dermatology 04/10/24 Herminia Hatch MD [address] [place] [address] Assigned Rheumatology Provider 07/02/24 Jelena David OD [address] [place] [address] [place] [address] Ophthalmology 08/30/24 [place] [address] [place] [address] Assigned Neuroscience Provider 09/30/24 Maru Man PA-C [address] [place] [address] Physician Fan Blade Aligner Dermatology 10/03/24 documented as of this encounter
--- OUTSIDE RECORDS SUMMARY | 2024-10-18 19:23 | XMS_ITS | Encounter Summary ---
Author Organization [place] Address [address] [place] [address] Care Team Providers Care Puttying And Calking Supervisor Name Role Phone Diana Desir [facility] Unavailable Rain Galaviz PA-C Unavailable [phone] Tavia Wyatt MD Unavailable [phone] Erica Farrell APRN SWITCHBOARD OPERATOR ASSISTANT Unavailable Rich Barrett MD Unavailable [phone] Neil [place] MD Unavailable Diana Desir [facility] Unavailable Livan Sharif MD Unavailable Catherine Cm MD Unavailable + Valery Veronica PA-C Unavailable Brea Quinn REAL ESTATE COORDINATOR SWITCHBOARD OPERATOR ASSISTANT Unavailable Brea Quinn REAL ESTATE COORDINATOR SWITCHBOARD OPERATOR ASSISTANT Unavailable Jose Francisco Johnson MD Unavailable Alfonso Renteria MD Unavailable [phone] Esha Grimm PA-C Primary Care Provider Radha Lomeli APRN SWITCHBOARD OPERATOR ASSISTANT Unavailable Jelena David OD Unavailable Esha Grimm PA-C Unavailable [phone] Valery Veronica PA-C Unavailable Rey Tay MD Unavailable Rocky Zepeda DO Unavailable Philip Dumont MD Unavailable [phone] Meredith Carrera PA-C Unavailable [phone] Neil [place] MD Unavailable Juan Pablo Emmanuel MD Unavailable Audrey Waite PA-C Unavailable [phone] JeremíasValery damon PA-C Unavailable Herminia Hatch MD Unavailable Jelena David OD Unavailable Juan Pablo Emmanuel MD Unavailable Maru Man PA-C Unavailable [phone] Encounter Details Date Type Department Care Team (Late st Contact Info) Description 03/05/2024 [facility] Medical Advice [facility] G[facility]enterology Clinic [address] [place] [address] Rebecca Moctezuma Social History Tobacco [...] Answer Date Recorded PHQ-2 Score 1 02/07/2024 [facility] - Occupational Stress [...] at this level? 30 min 03/10/2023 [place] Depression Scale Answer Date Recorded [place] Depression Score 5 01/14/2021 Last EPDS [...] PM CDT Legal Sex Female 4:13 AM BANDER Gender Identity Female 03/02/2021 5:45 PM CDT Sexual Orientation Straight 02/28/2020 12 :51 AM CDT documented as of this encounter Plan of Treatment Upcoming Encounters Date Type Department Care Team (Late st Contact Info) Description 10/22/2024 11:00 AM CDT Office Visit [address] [phone] Maru Man PA-C [address] [address] 10/23/2024 PRE VISIT [facility] Neurology [facility] - [address], [address] [place] [address] Johnny Penn MD [address] [address] Previsit 10/23/2024 9:30 AM CDT Office Visit [facility] Neurology [facility] [address] [facility], [address] [place] [phone] [place] [address] [place] 88[address] Johnny Penn MD [address] [place] [place] [address]505 10/24/2024 4:00 PM CDT Office Visit [facility] [address] [facility] [address] [place] [phone] Jelena David, [address] [facility] [place] [address] 10/31/2024 9:15 AM CDT Virtual Visit [facility] Gastroenterology [address] [phone] Meredith Carrera PA-C [address] [place] [address] 395145 12/20/2024 2:30 PM CDT Office Visit [facility] [address] [place] [phone] Esha Grimm PA-C [address] [place] [address] documented as of this encounter Visit Diagnoses Not on filedocumented in this encounter Additional Health Concerns Infection Onset Date Last Indicated Resolved Time Rule Out COVID-19 04/09/2024 04/09/2024 04/10/2024 6:48 PM CDT Rule Out COVID-19 10/04/2024 10/04/2024 10/05/2024 9:42 AM CDT Assessment Noted Time PHQ-9 Depression Total Score: 3 02/07/20 24 9:33 AM CDT documented as of this encounter Care Teams Puttying And Calking Supervisor Relationship Specialty Start Date End Date Esha Grimm PA-C [address] [place] [address] PCP - General Family Medicine 05/04/23 Diana Desir, [facility] [address] [place] [address] Pharmacist Pharmacist 04/17/21 Rain Galaviz PA-C [address] [place] [address] [address] [facility] [place] [address] Physician Senior Civil Engineer Dermatology 04/28/21 Tavia Wyatt MD [address] [place] [address] [address] RAZO [facility] [place] [address] Dermatology 07/14/21 Erica Farrell APRN SWITCHBOARD OPERATOR ASSISTANT [address] [place] [address] Nurse Practitioner Cardiovascular Disease 09/09/21 Rich Barrett MD [address] [place] [address] Physician Ophthalmology 01/21/22 Neil Kent MD 500 [place] [address] Dermatology 02/24/22 Diana Desir, [facility] 3033 [place] [address] Assigned MTM Pharmacist 04/07/22 Livan Sharif MD [address] [place] [address] Cardiovascular Disease 05/14/22 Catherine Cm MD [address] [place], [place] 663225 Cardiovascular Disease 07/21/22 Valery Veronica, PAUcheC 909 [place], [place] 812005 Physician Senior Civil Engineer Dermatology 07/21/22 Brea Quinn APRN SWITCHBOARD OPERATOR ASSISTANT 500 [place], [place] 322325 Nurse Practitioner Dermatology 09/21/22 Brea Quinn APRN SWITCHBOARD OPERATOR ASSISTANT 6401 [place] [address] Assigned Surgical Provider 10/09/22 05/01/24 [place] [address] [address] [facility] [address] [place] [address] Assigned Musculoskeletal Provider 10/09/22 05/01/24 Alfonso Renteria MD [address] [facility] 200 [place], [place] 343016 Assigned Neuroscience Provider 04/02/23 09/29/24 Radha Lomeli APRN SWITCHBOARD OPERATOR ASSISTANT [address] [place] [address] Assigned Heart and Vascular Provider 05/28/23 Jelena David OD [address] [facility] [place] [address] MD Ophthalmology 06/15/23 Esha Grimm PA-C [address] [place] [phone] Assigned PCP 07/16/23 Valery Veronica PA-C [address] [place] [address] 488045 Physician Senior Civil Engineer Dermatology 09/19/23 Rey Tay MD [address] [place] [address] 527865 Gastroenterology 09/20/23 Rocky Zepeda DO [address] [place] [address] 953545 Physician Gastroenterology 09/20/23 Philip Dumont MD [address] [place] [address] 826905 Physician Ophthalmology 09/22/23 Meredith Carrera PA-C [address] [place] [address] 156015 Assigned Gastroenterology Provider 11/01/23 Neil Kent MD [address] 769610 Dermatology 11/02/23 [place] [address] [place] [address] Neurological Surgery 12/26/23 Audrey Waite PA-C 500 [place] [address] Physician Senior Civil Engineer Dermatology 02/28/24 Valery Veronica PA-C 612962 [place], [place] 322909 Physician Senior Civil Engineer Dermatology 04/10/24 Herminia Hatch MD [facility]5 [place], [place] 76142125 Assigned Rheumatology Provider 07/02/24 [place] [address] [place] [address] [place] [address] Ophthalmology 08/30/24 [place] [address] [place] [address] Assigned Neuroscience Provider 09/30/24 Maru Man PA-C [address] [place] [address] 236830 Physician Senior Civil Engineer Dermatology 10/03/24 documented as of this encounter
--- OUTSIDE RECORDS SUMMARY | 2024-10-18 19:23 | XMS_ITS | Encounter Summary ---
Author Organization [place] Address [address] [place] [address] Care Team Providers Care Sewer And Drain Technician Name Role Phone Diana Desir [facility] Unavailable Rain Galaviz PA-C Unavailable [phone] Tavia Wyatt MD Unavailable [phone] Erica Farrell APRN SPEECH PATHOLOGIST ASSISTANT Unavailable Rich Barrett MD Unavailable [phone] Neil [place] MD Unavailable Diana Desir [facility] Unavailable [phone] Livan Sharif MD Unavailable Catherine Cm MD Unavailable + Valery Veronica PA-C Unavailable [phone] Brea Quinn ALIGNING CHECKER SPEECH PATHOLOGIST ASSISTANT Unavailable [phone] Brea Quinn ALIGNING CHECKER SPEECH PATHOLOGIST ASSISTANT Unavailable [phone] Jose Francisco Johnson MD Unavailable Alfonso Renteria MD Unavailable [phone] Esha Grimm PA-C Primary Care Provider [phone] Radha Lomeli APRN SPEECH PATHOLOGIST ASSISTANT Unavailable Jelena David OD Unavailable Pao Joseph RN Unavailable Unavailable AlfaJesusEsha M PA-C Unavailable [phone] Valery Veronica PA-C Unavailable [phone] Rey Tay MD Unavailable Rocky Zepeda DO Unavailable Philip Dumont MD Unavailable [phone] Meredith Carrera PA-C Unavailable [phone] Neil [place] MD Unavailable Juan Pablo Emmanuel MD Unavailable [phone] Audrey Waite PA-C Unavailable [phone] Valery Veronica PA-C Unavailable Herminia Hatch MD Unavailable Jelena David OD Unavailable Juan Pablo Emmanuel MD Unavailable Maru Man PA-C Unavailable [phone] Encounter Details Date Type Department Care Team (Late st Contact Info) Description 10/25/2023 [facility] Medical Advice [facility] Gastroenterology Clinic [address] [address] [place] Social History Tobacco [...] Score 0 10/25/2023 [facility] - Occupational Stress Questionnaire Answer Date [...] at this level? 30 min 03/10/2023 [place] Depression Scale Answer Date Recorded [place] Depression Score 5 01/14/2021 Last EPDS Self [...] PM CDT Legal Sex Female 4:13 AM ENGRAVER OPTICAL FRAMES Gender Identity Female 03/02/2021 5:45 PM CDT Sexual Orientation Straight 02/28/2020 12 :51 AM CDT documented as of this encounter Plan of Treatment Upcoming Encounters Date Type Department Care Team (Late st Contact Info) Description 10/22/2024 11:00 AM CDT Office Visit [address] [phone] Maru Man PA-C [address] [address] 10/23/[address] [facility] Neurology [facility] - [address], [address] [place] [address] Johnny Penn MD [address] [place] [address] Previsit 10/23/2024 9:30 AM CDT Office Visit [facility] Neurology [facility] [address] [facility], [address] [place] [phone] [place] [address] [place] [address] Johnny Penn MD [address] [place] 975035 10/24/2024 4:00 PM CDT Office Visit [facility] [address] [facility] [address] [place] [phone] Jelena David, [address] [facility] [place] [address] 10/31/2024 9:15 AM CDT Virtual Visit [facility] Gastroenterology Clinic [address] [phone] Meredith Carrera PA-C [address] [place] [address] 12/20/2024 2:30 PM CDT Office Visit [facility] [address] [place] [address] Esha Grimm PA-C [address] [place] [address] documented as of this encounter [...] Total Score: 4 06/20/20 23 8:40 AM ENGRAVER OPTICAL FRAMES documented as of this encounter Care Teams Sewer And Drain Technician Relationship Specialty Start Date End Date Esha Grimm PA-C [address] [place] [address] PCP - General Family Medicine 05/04/23 Diana Desir, [facility] [address] [place] [address] Pharmacist Pharmacist 04/17/21 Rain Galaviz PA-C [address] [place] [address] [address] [place] [address] Physician Sliver Chopper Dermatology 04/28/21 Tavia Wyatt MD [address] [place] [address] [address] [place] [address] Dermatology 07/14/21 Erica Farrell APRN SPEECH PATHOLOGIST ASSISTANT [address] [place] [address] Nurse Practitioner Cardiovascular Disease 09/09/21 Rich Barrett MD [address] [place] [address] Physician Ophthalmology 01/21/22 Neil Kent MD 500 [place] [address] Dermatology 02/24/22 [facility] 3033 [place] [address] Assigned [place] Pharmacist 04/07/22 Livan Sharif MD [address] 4985300 [place] [address] Cardiovascular Disease 05/14/22 Catherine Cm MD [address] [address] Cardiovascular Disease 07/21/22 Valery Veronica, PA-C 909 [place] [address] Physician Sliver Chopper Dermatology 07/21/22 Brea Quinn APRN SPEECH PATHOLOGIST ASSISTANT 500 [place] [address] Nurse Practitioner Dermatology 09/21/22 Brea Quinn APRN SPEECH PATHOLOGIST ASSISTANT [address] [place] [address] Assigned Surgical Provider 10/09/22 05/01/24 [place] [address] [address] Assigned Musculoskeletal Provider 10/09/22 05/01/24 Alfonso Renteria MD [address] [place] [address] Assigned Neuroscience Provider 04/02/23 09/29/24 Radha Lomeli APRN SPEECH PATHOLOGIST ASSISTANT [address] [place] [address] Assigned Heart and Vascular Provider 05/28/23 Jelena David, SONJA [address] [place] [address] MD Ophthalmology 06/15/23 Pao Joseph, VJ Personal Advocate & Liaison (PAL) Nurse 08/01/23 11/07/23 Esha Grimm PA-C [address] [place] [phone] Assigned PCP 07/16/23 Valery Veronica PA-C [address] [place] [address] 631735 Physician Sliver Chopper Dermatology 09/19/23 Rey Tay MD [address] [place] [address] 796585 Gastroenterology 09/20/23 Rocky Zepeda DO [address] [place] [address] 521255 Physician Gastroenterology 09/20/23 Philip Dumont MD [address] [place] [address] 561775 Physician Ophthalmology 09/22/23 Meredith Carrera PA-C [address] [place] [address] 565745 Assigned Gastroenterology Provider 11/01/23 Neil Kent MD [address] [place] [address] Dermatology 11/02/23 [place] [address] [place] [address] Neurological Surgery 12/26/23 Audrey Waite PA-C [address] [place] [address] Physician Sliver Chopper Dermatology 02/28/24 Valery Veronica PA-C 8[address]48 [address] [place] [address] Physician Sliver Chopper Dermatology 04/10/24 Herminia Hatch MD [address] [place] [address] [id number] Assigned Rheumatology Provider 07/02/24 Jelena David OD [address] [place] [address] [place] [address] Ophthalmology 08/30/24 [place] [address] [place] [address] Assigned Neuroscience Provider 09/30/24 Maru Man PA-C [address] [place] [address] Physician Sliver Chopper Dermatology 10/03/24 documented as of this encounter
--- OUTSIDE RECORDS SUMMARY | 2024-10-18 19:24 | XMS_ITS | Encounter Summary ---
Author Organization [facility] Address [address] [place] [address] Care Team Providers Care Administrative Intern Name Role Phone Lita Oseguera Unavailable Unavailable Marija Edgar APRN COMPUTER DESIGNER Primary Care Provider + Chanelle Mccann APRN CNM Unavailab le Kyara De La Fuente RN Unavailable [phone] Marija Edgar APRN COMPUTER DESIGNER Unavailable [phone] Mynor Broussard MD Unavailable [phone] Keisha Dotson MD Unavailable Mary Mejia Unavailable Unavailable Stacey Briones POWER SWEEPER OPERATOR Unavailable Lesley Guillermo CHW Unavailable Mary Mejia Unavailable Unavailable Lita Oseguera Unavailable Unavailable Galo Burrell MD Unavailable Unavailable Cristina Wood Unavailable Lesley Guillermo CHW Unavailable Meredith Bedoya Unavailable Unavailable Cristina Wood Unavailable Diana Desir [facility] Unavailable [phone] Ruhland, Rain Lena PA-C Unavailable Summer Lara MD Unavailable [phone] Summer Lara MD Unavailable [phone] Summer Lara MD Unavailable [phone] Tavia Wyatt MD Unavailable [phone] Johnny Murillo MD Unavailable [phone] Erica Farrell APRN COMPUTER DESIGNER Unavailable VikasTeresita H Unavailable Tavia Wyatt MD Unavailable [phone] Diana Desir [facility] Unavailable [phone] Rich Barrett MD Unavailable [phone] Neil Kent MD Unavailable Roney Story [facility] Unavailable Erica Farrell APRN COMPUTER DESIGNER Unavailable Diana Desir [facility] Unavailable [phone] Jelena David OD Unavailable [phone] Galo Burrell MD Unavailable Unavailable Livan Sharif MD Unavailable Livan Sharif MD Unavailable Catherine Cm MD Unavailable + Valery Veronica PA-C Unavailable [phone] Catherine Cm MD Unavailable + Johnny Murillo MD Unavailable +[phone] Brea Quinn APRN COMPUTER DESIGNER Unavailable [phone] Brea Quinn [employer]IAL SECURITY BENEFITS INTERVIEWER COMPUTER DESIGNER Unavailable [phone] Jose Francisco Johnson MD Unavailable Livan Sharif MD Unavailable Catherine Cm MD Unavailable + Sydnie Martinez RN Unavailable Unavailable Alfonso Renteria MD Unavailable [phone] Esha Grimm PA-C Primary Care Provider Cheng Todd PA-C Unavailable Radha Lomeli APRN COMPUTER DESIGNER Unavailable Jelena David OD Unavailable [phone] Pao Joseph RN Unavailable Unavailable Esha Grimm PA-C Unavailable [phone] Valery Veronica PA-C Unavailable Rey Tay [...] Team (Late st Contact Info) Description 07/10/2020 [facility] [place] [address] [place] [address] Mnyor Broussard MD [address] [place] [address] Social History Tobacco Use Types Packs/Day Years [...] PM CDT Legal Sex Female 4:13 AM DELIVERY ENGINEER Gender Identity Female 03/02/2021 5:45 PM CDT Sexual Orientation Straight 02/28/2020 12 :51 AM CDT COVID-19 Exposure Response Date Recorded In the last month, have you been in contact with someone who was confirmed or suspected to have Coronavirus / COVID-19? No / Unsure 06/24/2020 3:01 PM DELIVERY ENGINEER documented as of this encounter Plan of Treatment Upcoming Encounters Date Type Department Care Team (Late st Contact Info) Description 10/22/2024 11:00 AM CDT Office Visit [address] [phone] Maru Man PA-C [address] [place] [address] 10/23/2024 PRE VISIT [facility] Neurology [address] [place] [phone] Johnny Penn MD [address] [place] [address] Previsit 10/23/2024 9:30 AM CDT Office Visit [facility] Neurology [address], [address] [place] [phone] [place] [address] [place] [address] Johnny Penn MD [address] [place] [address] 10/24/2024 4:00 PM CDT Office Visit [facility] [address] [place] [phone] Jelena David, [place] [address] [facility] [place] [address] 10/31/2024 9:15 AM CDT Virtual Visit [facility] [address] [place] [phone] Meredith Carrera PA-C [address] [place] [address] 12/20/2024 2:30 PM CDT Office Visit [facility] [id number] [place] [phone] Esha Grimm PA-C [address] [place] [phone] documented as of this encounter Visit Diagnoses Not on filedocumented in this encounter Additional Health Concerns Infection Onset Date Last Indicated Resolved Time Rule Out COVID-19 07/30/2020 07/30/2020 07/30/2020 7:11 PM DELIVERY ENGINEER Rule Out COVID-19 08/30/2020 08/30/2020 08/30/2020 5:05 PM DELIVERY ENGINEER Rule Out COVID-19 09/24/2020 09/24/2020 09/24/2020 9:24 AM CDT Rule Out COVID-19 11/05/2020 11/05/2020 11/06/2020 1:09 PM CDT Rule Out COVID-19 05/11/2021 05/11/2021 05/13/2021 10:18 AM CDT Rule Out COVID-19 07/13/2021 07/13/2021 07/14/2021 3:04 PM DELIVERY ENGINEER Rule Out COVID-19 07/18/2021 07/18/2021 07/20/2021 1:56 PM DELIVERY ENGINEER COVID-19 07/18/2021 07/18/2021 08/08/2021 11:3 9 PM DELIVERY ENGINEER Rule Out COVID-19 12/18/2021 12/18/2021 12/19/2021 11:34 AM CDT Rule Out COVID-19 02/24/2022 02/24/2022 02/25/2022 1:08 PM CDT Rule Out COVID-19 04/26/2022 04/26/2022 04/26/2022 6:47 AM CDT Rule Out COVID-19 05/17/2022 05/17/2022 05/17/2022 10:20 PM DELIVERY ENGINEER Rule Out COVID-19 06/09/2022 06/09/2022 06/09/2022 9:35 AM DELIVERY ENGINEER COVID-19 06/09/2022 06/09/2022 06/30/2022 11:4 1 PM DELIVERY ENGINEER Rule Out COVID-19 11/10/2022 11/10/2022 11/11/2022 12:17 PM CDT Rule Out COVID-19 03/07/2023 03/07/2023 03/07/2023 1:20 PM CDT Rule Out COVID-19 12/26/2023 12/26/2023 12/26/2023 9:50 AM CDT Rule Out COVID-19 04/09/2024 04/09/2024 04/10/2024 6:48 PM CDT Rule Out COVID-19 10/04/2024 10/04/2024 10/05/2024 9:42 AM CDT Assessment Noted Time PHQ-9 Depression Total Score: 9 06/25/20 20 7:04 AM DELIVERY ENGINEER documented as of this encounter Care Teams Administrative Intern Relationship Specialty Start Date End Date Marija Edgar APRN COMPUTER DESIGNER PCP - General Nurse Practitioner 04/30/20 04/14/23 Esha Grimm PA-C [address] [place] [phone] PCP - General Family Medicine 05/04/23 Lita Oseguera Personal Advocate & Liaison (PAL) 02/28/20 03/27/23 [place] [address] [address] [facility] [address] [place], [place] [address] Assigned OBGYN Provider 05/02/2005/09 Kyara De La Fuente, RN Specialty Before School Neurology 06/04/20 03/05/21 Marija Edgar APRN COMPUTER DESIGNER Assigned PCP 06/08/20 04/29/23 Mynor Broussard MD [address] [facility] 500 [place] [address] Assigned Surgical Provider 06/01/20 11/28/21 Keisha Dotson MD [address] [place], [place] [phone] Assigned Neuroscience Provider 06/04/20 04/01/23 Mary Mejia Financial Resource Worker 08/07/20 08/21/20 Stacey Briones, POWER SWEEPER OPERATOR Lead Before School Primary Care - CC 08/11/2012/30 Lesley Guillermo, W Community Health Worker 08/11/2010/01 Mary Mejia Financial Resource Worker 09/02/20 10/06/20 Lita Oseguera Personal Advocate & Liaison (PAL) Family Medicine 09/10/20 09/21/20 Galo Burrell MD Assigned Heart and Vascular Provider 10/05/20 04/02/22 Cristina Wood Financial Resource Worker 10/07/20 10/14/20 Lesley Guillermo, [facility] Community Health Worker 10/23/2012/30 Meredith Bedoya Financial Resource Worker 10/23/20 11/23/20 Cristina Wood Financial Resource Worker 02/09/21 02/09/21 Diana Desir, [facility] [address] [place], [place] [phone] Pharmacist Pharmacist 04/17/21 Rain Galaviz PA-C [address] [place] [address] [address] [place], [place] [phone] Physician Machining Manager Dermatology 04/28/21 Summer Lara MD [address] [place] [address] [phone] Assigned OBGYN Provider 05/10/2105/23 Summer Lara MD [address] [place] [address] 069484 Assigned OBGYN Provider 05/31/21 Summer Lara MD [address] [place] [address] Assigned OBGYN Provider 05/24/2105/30 Tavia Wyatt MD [address] [place] [address] Dermatology 07/14/21 Johnny Murillo MD [address] [place] [address] Assigned Musculoskeletal Provider 08/30/21 03/17/22 Erica Farrell APRN COMPUTER DESIGNER [address] [facility] [address] [place] [address] Nurse Practitioner Cardiovascular Disease 09/09/21 Teresita Bean, [facility] [address] [place] [phone] Pharmacist Pharmacist 09/24/21 09/29/21 Tavia Wyatt MD [address] [place], [place] [address] Assigned Surgical Provider 11/29/21 05/07/22 Diana Desir, [facility] [address] [place] [address] Assigned MTM Pharmacist 01/02/22 Rich Barrett MD [address] [place] [address] Physician Ophthalmology 01/21/22 Neil Kent MD [address] [place] [address] Dermatology 02/24/22 Roney Story DPM [address] [facility] [address] [place] [address] Assigned Musculoskeletal Provider 03/20/22 08/13/22 Erica Farrell APRN COMPUTER DESIGNER [address] [place] [address] Assigned Heart and Vascular Provider 04/03/22 04/16/22 [facility] [address] [facility] [place], [place] [address] Assigned MTM Pharmacist 04/07/22 Jelena David OD [address] [place] [address] Assigned Surgical Provider 05/08/22 10/08/22 Galo Burrell MD Assigned Heart and Vascular Provider 04/17/22 06/11/22 Livan Sharif MD [address] [place] [address] Cardiovascular Disease 05/14/22 Livan Sharif MD [address] [place] [address] Assigned Heart and Vascular Provider 06/12/22 07/23/22 Catherine Cm MD [address] [place] [address] Cardiovascular Disease 07/21/22 Valery Veronica PAUcheC [address] [place], [place] [address] Physician Machining Manager Dermatology 07/21/22 Catherine Cm MD [address] 18[address]200 [place] [address] Assigned Heart and Vascular Provider 07/24/22 11/05/22 Johnny Murillo MD [address] [place] [address] Assigned Musculoskeletal Provider 08/14/22 10/08/22 Brea Quinn APRN COMPUTER DESIGNER [address] [place] [address] Nurse Practitioner Dermatology 09/21/22 Brea Quinn APRN COMPUTER DESIGNER [address] [place] [address] Assigned Surgical Provider 10/09/22 05/01/24 [place] [address] [place] [address] Assigned Musculoskeletal Provider 10/09/22 05/01/24 Livan Sharif MD [address] [phone] [place] [address] Assigned Heart and Vascular Provider 11/06/22 11/12/22 Catherine Cm MD [address] [phone] [place] [address] Assigned Heart and Vascular Provider 11/13/22 05/27/23 Juan, Sydnie M, RN Personal Advocate & Liaison (PAL) Family Medicine 03/28/23 07/31/23 Alfonso Renteria MD [address] [facility] [address] [place] [address] Assigned Neuroscience Provider 04/02/23 09/29/24 Cheng Todd PA-C [address] [place] [address] Assigned PCP 04/30/23 07/15/23 Radha Lomeli APRN COMPUTER DESIGNER [address] [phone] [place] [address] Assigned Heart and Vascular Provider 05/28/23 Jelena David OD [address] [place] [address] Ophthalmology 06/15/23 Pao Joseph RN Personal Advocate & Liaison (PAL) Nurse 08/01/23 11/07/23 Esha Grimm PA-C [address] [place] [phone] Assigned PCP 07/16/23 Valery Veronica PA-C [address] [place] [address] 276275 Physician Machining Manager Dermatology 09/19/23 Rey Tay MD [address] [place] [address] 604205 Gastroenterology 09/20/23 Rocky Zepeda DO [address] [place] [address] Physician Gastroenterology 09/20/23 Philip Dumont MD [address] [place] [address] 002135 Physician Ophthalmology 09/22/23 Meredith [place] PA-C [address] [place] [address] 934205 Assigned Gastroenterology Provider 11/01/23 Neil Kent MD [address] 309370 MD Dermatology 11/02/23 [place] [address] [place], [place] [address] Neurological Surgery 12/26/23 Audrey Waite PA-C [address] [place], [place] [address] Physician Machining Manager Dermatology 02/28/24 Valery Veronica PA-C 434[address] [address], [place] [address] Physician Machining Manager Dermatology 04/10/24 Herminia Hatch MD [address] [place] [address] [phone] Assigned Rheumatology Provider 07/02/24 [place] [address] [place] [address] [place] [address] Ophthalmology 08/30/24 [place] [address] [address] Assigned Neuroscience Provider 09/30/24 Maru Man PA-C [address] [address] Physician Machining Manager Dermatology 10/03/24 documented as of this encounter
--- OUTSIDE RECORDS SUMMARY | 2024-10-18 19:24 | XMS_ITS | Encounter Summary ---
Author Organization [facility] Address [address] [place] [address] Care Team Providers Care Veterinary Medicine Teacher Name Role Phone Lita Oseguera Unavailable Unavailable Rakesh Cid PA-C Unavailable Marija Edgar APRN BUSINESS PLANNING DIRECTOR Primary Care Provider + Chanelle Mccann APRN CN Unavailab le Lesley Guillermo CHW Unavailable [phone] Kyara De La Fuente RN Unavailable [phone] Marija Edgar APRN [facility] Unavailable Mynor Broussard MD Unavailable [phone] Keisha Dotson MD Unavailable [phone] Mary Mejia Unavailable Unavailable Stacey Briones GRAVITY METER OPERATOR Unavailable Lesley Giullermo CHW Unavailable [phone] Mary Mejia Unavailable Unavailable Lita Oseguera Unavailable Unavailable Galo Burrell MD Unavailable Unavailable Cristina Wood Unavailable Lesley Guillermo CHW Unavailable [phone] Meredith Bedoya Unavailable Unavailable Cristina Wood Unavailable Diana Desir [facility] Unavailable [phone] Rain Galaviz PA-C Unavailable Summer Lara MD Unavailable [phone] Summer Lara MD Unavailable [phone] Summer Lara MD Unavailable [phone] Tavia Wyatt MD Unavailable [phone] Johnny Murillo MD Unavailable [phone] Erica Farrell APRN BUSINESS PLANNING DIRECTOR Unavailable Teresita Bean [facility] Unavailable Tavia Wyatt MD Unavailable [phone] Diana Desir [facility] Unavailable [phone] Rich Barrett MD Unavailable Neil Kent MD Unavailable Roney StoryM Unavailable Erica Farrell APRN BUSINESS PLANNING DIRECTOR Unavailable + Diana Desir [facility] Unavailable [phone] Jelena David OD Unavailable Galo Burrell MD Unavailable Unavailable Livan Sharif MD Unavailable Livan Sharif MD Unavailable + Catherine Cm MD Unavailable + Valery Veronica PA-C Unavailable [phone] Catherine Cm MD Unavailable + Johnny Murillo MD Unavailable [phone] Brea Quinn APRN BUSINESS PLANNING DIRECTOR Unavailable [phone] [place], Brea P NURSE PRACTITIONER PHYSICIANS ASSISTANT BUSINESS PLANNING DIRECTOR Unavailable Jose Francisco Johnson MD Unavailable Livan Sharif MD Unavailable Catherine Cm MD Unavailable + Sydnie Martinez RN Unavailable Unavailable Alfonso Renteria MD Unavailable Esha Grimm PA-C Primary Care Provider Cheng Todd PA-C Unavailable ArmaniRadha NURSE PRACTITIONER PHYSICIANS ASSISTANT BUSINESS PLANNING DIRECTOR Unavailable [phone] Jelena David OD Unavailable [phone] Pao Joseph RN Unavailable Unavailable Esha Grimm PA-C Unavailable [phone] Valery Veronica PA-C Unavailable Rey Tay [...] Contact Info) Description 05/19/2020 Telephone [facility] Epilepsy Care [address], [address] [place] [phone] Unknown Referral Social History Tobacco Use Types [...] CDT Legal Sex Female 4:13 AM FIELD SALES MANAGER Gender Identity Female 03/02/2021 5:45 PM CDT Sexual Orientation Straight 02/28/2020 12 :51 AM CDT COVID-19 Exposure Response Date Recorded In the last month, have you been in contact with someone who was confirmed or suspected to have Coronavirus / COVID-19? No / Unsure 05/12/2020 9:03 AM FIELD SALES MANAGER documented as of this encounter Miscellaneous Notes * Telephone Encounter - Jolene Mcpherson - 05/19/2020 2:02 PM CST [facility] Phone Message May a detailed message be left on voicemail: yes Reason for Call: Appointment Intake Referring Provider Name: Marija Edgar APRN CNP in FAMILY PRACTICE Diagnosis and/or Symptoms: History of Seizures Being referred to [facility]. Please review. Thanks. Action Taken: Other: [facility] Travel Screening: Not Applicable D SALES MANAGER documented in this encounter Plan of Treatment Upcoming Encounters Date Type Department Care Team (Late st Contact Info) Description 10/22/2024 11:00 AM CDT Office Visit [facility] [address] [phone] Maru Man PA-C [address] [address] 10/23/[address] [facility] Neurology Clinics - [address], [address] [place] [phone] Johnny Penn MD [address] [address] Previsit 10/23/2024 9:30 AM CDT Office Visit [facility] Neurology [facility] [address] [facility], [address] [place] [phone] [place] [address] [place], [place] [address] Johnny Penn MD [address] [place] [address] 10/24/2024 4:00 PM CDT Office Visit [facility] [address] [facility] [address] [place] [phone] Jelena David, [address] [facility] [place] [address] 10/31/2024 9:15 AM CDT Virtual Visit [facility] Gastroenterology [address] [place] [phone] Meredith Carrera PA-C [address] [place] [address] 12/20/2024 2:30 PM CDT Office Visit [address] [address] Esha Grimm PA-C [address] [place] [address] documented as of this encounter Visit Diagnoses Not on filedocumented in this encounter Additional Health Concerns Infection Onset Date Last Indicated Resolved Time Rule Out COVID-19 07/30/2020 07/30/2020 07/30/2020 7:11 PM FIELD SALES MANAGER Rule Out COVID-19 08/30/2020 08/30/2020 08/30/2020 5:05 PM FIELD SALES MANAGER Rule Out COVID-19 09/24/2020 09/24/2020 09/24/2020 9:24 AM CDT Rule Out COVID-19 11/05/2020 11/05/2020 11/06/2020 1:09 PM CDT Rule Out COVID-19 05/11/2021 05/11/2021 05/13/2021 10:18 AM CDT Rule Out COVID-19 07/13/2021 07/13/2021 07/14/2021 3:04 PM FIELD SALES MANAGER Rule Out COVID-19 07/18/2021 07/18/2021 07/20/2021 1:56 PM FIELD SALES MANAGER COVID-19 07/18/2021 07/18/2021 08/08/2021 11:3 9 PM FIELD SALES MANAGER Rule Out COVID-19 12/18/2021 12/18/2021 12/19/2021 11:34 AM CDT Rule Out COVID-19 02/24/2022 02/24/2022 02/25/2022 1:08 PM CDT Rule Out COVID-19 04/26/2022 04/26/2022 04/26/2022 6:47 AM CDT Rule Out COVID-19 05/17/2022 05/17/2022 05/17/2022 10:20 PM FIELD SALES MANAGER Rule Out COVID-19 06/09/2022 06/09/2022 06/09/2022 9:35 AM FIELD SALES MANAGER COVID-19 06/09/2022 06/09/2022 06/30/2022 11:4 1 PM FIELD SALES MANAGER Rule Out COVID-19 11/10/2022 11/10/2022 11/11/2022 12:17 PM CDT Rule Out COVID-19 03/07/2023 03/07/2023 03/07/2023 1:20 PM CDT Rule Out COVID-19 12/26/2023 12/26/2023 12/26/2023 9:50 AM CDT Rule Out COVID-19 04/09/2024 04/09/2024 04/10/2024 6:48 PM CDT Rule Out COVID-19 10/04/2024 10/04/2024 10/05/2024 9:42 AM CDT Assessment Noted Time PHQ-9 Depression Total Score: 6 08/28/19 21 7:05 AM FIELD SALES MANAGER documented as of this encounter Care Teams Veterinary Medicine Teacher Relationship Specialty Start Date End Date Marija Edgar APRN BUSINESS PLANNING DIRECTOR [address] [place] [address] PCP - General Nurse Practitioner 04/30/20 04/14/23 Esha Grimm PA-C [address] [place] [phone] PCP - General Family Medicine 05/04/23 Lita Oseguera Personal Advocate & Liaison (PAL) 02/28/20 03/27/23 Rakesh Cid PA-C [address] [place] [address] Assigned PCP 03/02/20 06/07/20 Chanelle Mccann APRN CNM [address] [place] [address] Assigned OBGYN Provider 05/02/2005/09 Lesley Guillermo W Community Health Worker 05/30/2005/12 Kyara De La Fuente, RN Specialty Gold Nib Grinder Neurology 06/04/20 03/05/21 Marija Edgar APRN BUSINESS PLANNING DIRECTOR [address] [place] [address] Assigned PCP 06/08/20 04/29/23 Mynor Broussard MD [address] [place] [address] Assigned Surgical Provider 06/01/20 11/28/21 Keisha Dotson MD [address] [place], [place] [phone] Assigned Neuroscience Provider 06/04/20 04/01/23 Mary Mejia Financial Resource Worker 08/07/20 08/21/20 Stacey Briones, [facility] Lead Gold Nib Grinder Primary Care - CC 08/11/2012/30 Lesley Guillermo, [...] [facility] [address] [place], [place] [phone] Pharmacist Pharmacist 04/17/21 Rain Galaviz PA-C [address] [place] [address] [place] [address] Physician Sdc Teacher Dermatology 04/28/21 Summer Lara MD [address] [place] [address] Assigned OBGYN Provider 05/10/2105/23 Summer Lara MD [address] [place] [address] Assigned OBGYN Provider 05/31/21 Summer Lara MD [address] [place] [address] Assigned OBGYN Provider 05/24/2105/30 Tavia Wyatt MD [address] [place] [address] Dermatology 07/14/21 Johnny Murillo MD [facility] [address] [place] [address] Assigned Musculoskeletal Provider 08/30/21 03/17/22 Erica Farrell APRN BUSINESS PLANNING DIRECTOR [address] [facility] [address] [place] [address] Nurse Practitioner Cardiovascular Disease 09/09/21 Teresita Bean [facility] [address] [place] [phone] Pharmacist Pharmacist 09/24/21 09/29/21 Tavia Wyatt MD [address] [place] [address] Assigned Surgical Provider 11/29/21 05/07/22 Diana eDsir, [facility] [place] [address] Assigned MTM Pharmacist 01/02/22 Rich Barrett [facility] [place] [address] Physician Ophthalmology 01/21/22 Neil Kent MD [address] [place], [place] [address] Dermatology 02/24/22 Roney Story DPM [address] [facility] [address] [place], [place] [address] Assigned Musculoskeletal Provider 03/20/22 08/13/22 Erica Farrell APRN BUSINESS PLANNING DIRECTOR [address] [place] [address] Assigned Heart and Vascular Provider 04/03/22 04/16/22 Diana Desir, [facility] [place] [address] Assigned MTM Pharmacist 04/07/22 Jelena David OD [address] [facility] [place] [address] Assigned Surgical Provider 05/08/22 10/08/22 Galo Burrell MD Assigned Heart and Vascular Provider 04/17/22 06/11/22 Livan Sharif MD [address] [place] [address] Cardiovascular Disease 05/14/22 Livan Sharif MD [address] [place] [address] Assigned Heart and Vascular Provider 06/12/22 07/23/22 Catherine Cm MD [address] [place] [address] Cardiovascular Disease 07/21/22 Valery Veronica, PA-C [address] [place] [address] [phone] Physician Sdc Teacher Dermatology 07/21/22 Catherine Cm MD [address] [place] [address] Assigned Heart and Vascular Provider 07/24/22 11/05/22 Johnny Murillo MD [facility] [address] [phone] Assigned Musculoskeletal Provider 08/14/22 10/08/22 Brea Quinn APRN BUSINESS PLANNING DIRECTOR [address] [place] [address]295 Nurse Practitioner Dermatology 09/21/22 Brea Quinn APRN BUSINESS PLANNING DIRECTOR [address] [facility] [place] [address] Assigned Surgical Provider 10/09/22 05/01/24 [place] [address] [place] [address] Assigned Musculoskeletal Provider 10/09/22 05/01/24 Livan Sharif MD [address] [place] [address] Assigned Heart and Vascular Provider 11/06/22 11/12/22 Catherine Cm MD [address] [place] [address] Assigned Heart and Vascular Provider 11/13/22 05/27/23 Sydnie Martinez, RN Personal Advocate & Liaison (PAL) Family Medicine 03/28/23 07/31/23 Alfonso Renteria MD [address] [facility] [address] [place] [address] Assigned Neuroscience Provider 04/02/23 09/29/24 Cheng Todd PA-C [address] [place] [address] Assigned PCP 04/30/23 07/15/23 Radha Lomeli APRN BUSINESS PLANNING DIRECTOR [address] [place] [address] Assigned Heart and Vascular Provider 05/28/23 Jelena David OD [address] [facility] [place] [address] Ophthalmology 06/15/23 Pao Joseph, RN Personal Advocate & Liaison (PAL) Nurse 08/01/23 11/07/23 Esha Grimm PA-C [address] [place] [phone] Assigned PCP 07/16/23 Valery Veronica PA-C [address] [place] [address] [phone] Physician Sdc Teacher Dermatology 09/19/23 Rey Tay MD [address] [place] [address] 719165 MD Gastroenterology 09/20/23 Rocky Zepeda DO [address] [place] [address] 589395 Physician Gastroenterology 09/20/23 Philip Dumont MD [address] [place], [place] [address] Physician Ophthalmology 09/22/23 Meredith [place] PA-C [address] [place] [address] 401385 Assigned Gastroenterology Provider 11/01/23 Neil Kent MD [address] [address] Dermatology 11/02/23 [place] [address] [place] [address] Neurological Surgery 12/26/23 Audrey Waite PA-C [address] [place] [address] Physician Sdc Teacher Dermatology 02/28/24 Valery Veronica PA-C [address]25 [address] [place] [address] Physician Sdc Teacher Dermatology 04/10/24 Herminia Hatch MD [address] [place] [address] Assigned Rheumatology Provider 07/02/[address] [place] [address] [facility] [place] [address] Ophthalmology 08/30/24 [place] [address] [place] [address] Assigned Neuroscience Provider 09/30/24 Maru Man PA-C [address] [address] Physician Sdc Teacher Dermatology 10/03/24 documented as of this encounter
--- OUTSIDE RECORDS SUMMARY | 2024-10-18 19:24 | XMS_ITS | Encounter Summary ---
Author Organization [facility] Address [address] [place] [address] Care Team Providers Care Market Manager Name Role Phone Lita Oseguera Unavailable Unavailable Rakesh Cid PA-C Unavailable Marija Edgar APRN ROLLER STITCHER Primary Care Provider + Chanelle Mccann APRN CN Unavailab le Lesley Guillermo CHW Unavailable [phone] Kyara De La Fuente RN Unavailable Marija Edgar APRN [facility] Unavailable [phone] Mynor Broussard MD Unavailable [phone] Keisha Dotson MD Unavailable Mary Mejia Unavailable Unavailable Stacey Briones DECORATING EQUIPMENT SETTER Unavailable [phone] Lesley Guillermo CHW Unavailable [phone] Mary Mejia Unavailable Unavailable Lita Oseguera Unavailable Unavailable Galo Burrell MD Unavailable Unavailable Cristina Wood Unavailable Lesley Guillermo CHW Unavailable [phone] Meredith Bedoya Unavailable Unavailable Cristina Wood Unavailable Diana Desir [facility] Unavailable [phone] Rain Galaviz PA-C Unavailable Summer Lara MD Unavailable [phone] Summer Lara MD Unavailable [phone] Summer Lara MD Unavailable [phone] Tavia Wyatt MD Unavailable [phone] Johnny Murillo MD Unavailable [phone] Erica Farrell APRN ROLLER STITCHER Unavailable Teresita Bean [facility] Unavailable Tavia Wyatt MD Unavailable [phone] Diana Desir [facility] Unavailable [phone] Rich Barrett MD Unavailable Neil Kent MD Unavailable Roney StoryM Unavailable Erica Farrell APRN ROLLER STITCHER Unavailable + Diana Desir [facility] Unavailable [phone] Jelena David OD Unavailable Galo Burrell MD Unavailable Unavailable Livan Sharif MD Unavailable Livan Sharif MD Unavailable + Catherine Cm MD Unavailable + Valery Veronica PA-C Unavailable [phone] Catherine Cm MD Unavailable + Johnny Murillo MD Unavailable [phone] Brea Quinn APRN ROLLER STITCHER Unavailable [phone] [place], Brea P EPIC ANALYST ROLLER STITCHER Unavailable [phone] Jose Francisco Johnson MD Unavailable Livan Sharif MD Unavailable Catherine Cm MD Unavailable + Sydnie Martinez RN Unavailable Unavailable Alfonso Renteria MD Unavailable [phone] Esha Grimm PA-C Primary Care Provider Cheng Todd PA-C Unavailable Armani Radha Stovall EPIC ANALYST ROLLER STITCHER Unavailable Jelena David OD Unavailable Pao Joseph RN Unavailable Unavailable Esha Grimm PA-C Unavailable [phone] Valery Veronica PA-C Unavailable Rey Tay MD Unavailable Rocky Zepeda DO Unavailable Philip Dumont MD Unavailable [phone] Meredith Carrera PA-C Unavailable Neil Kent MD Unavailable Juan Pablo Emmanuel MD Unavailable Audrey Waite PA-C Unavailable Valery Veronica PA-C Unavailable Herminia Hatch MD Unavailable Jelena David OD Unavailable [phone] Juan Pablo Emmanuel MD Unavailable Maru Man PA-C Unavailable Encounter Details Date Type Department Care Team (Late st Contact Info) Description 06/05/2020 [facility] [address] [place] [phone] Marija Edgar APRN CNP [address] [place] [phone] Social History Tobacco Use Types Packs/Day Years [...] PM CDT Legal Sex Female 4:13 AM DIVER TENDER Gender Identity Female 03/02/2021 5:45 PM CDT Sexual Orientation Straight 02/28/2020 12 :51 AM CDT COVID-19 Exposure Response Date Recorded In the last month, have you been in contact with someone who was confirmed or suspected to have Coronavirus / COVID-19? No / Unsure 06/04/2020 10:30 AM DIVER TENDER documented as of this encounter Miscellaneous Notes * Telephone Encounter - Marija Edgar APRN CNP - 06/09/2020 9:38 AM DIVER TENDER Those referrals have been placed. The mental health attempted call but patient did not answer. Please have patient check voicemail's or await one further follow-up call. They will call her to set up Holter monitor. Thank you Marija Edgar APRN CNP on 06/09/2020 at 9:40 AM R TENDER documented in this encounter Plan of Treatment Upcoming Encounters Date Type Department Care Team (Late st Contact Info) Description 10/22/2024 11:00 AM CDT Office Visit [facility] [address] [phone] Maru Man PA-C [address] [address] 10/23/2024 PRE VISIT [facility] Neurology [facility] [address] [facility], [address] [place] [phone] Johnny Penn MD [address] [place] [phone] Previsit 10/23/2024 9:30 AM CDT Office Visit [facility] Neurology [facility] [address], [address] [place] [phone] [place] [address] [place] [address] Johnny Penn MD [address] [place] [address] 10/24/2024 4:00 PM CDT Office Visit [facility] [address] [facility] [address] [place] [address] Jelena David, [address] [facility] [address] 10/31/2024 9:15 AM CDT Virtual Visit [facility] [address] [place] [phone] Meredith Carrera PA-C [address] [place] [address] 12/20/2024 2:30 PM CDT Office Visit [facility] [id number] [place] [phone] Esha Grimm PA-C [address] [place] [address] documented as of this encounter Visit Diagnoses Not on filedocumented in this encounter Additional Health Concerns Infection Onset Date Last Indicated Resolved Time Rule Out COVID-19 07/30/2020 07/30/2020 07/30/2020 7:11 PM DIVER TENDER Rule Out COVID-19 08/30/2020 08/30/2020 08/30/2020 5:05 PM DIVER TENDER Rule Out COVID-19 09/24/2020 09/24/2020 09/24/2020 9:24 AM CDT Rule Out COVID-19 11/05/2020 11/05/2020 11/06/2020 1:09 PM CDT Rule Out COVID-19 05/11/2021 05/11/2021 05/13/2021 10:18 AM CDT Rule Out COVID-19 07/13/2021 07/13/2021 07/14/2021 3:04 PM DIVER TENDER Rule Out COVID-19 07/18/2021 07/18/2021 07/20/2021 1:56 PM DIVER TENDER COVID-19 07/18/2021 07/18/2021 08/08/2021 11:3 9 PM DIVER TENDER Rule Out COVID-19 12/18/2021 12/18/2021 12/19/2021 11:34 AM CDT Rule Out COVID-19 02/24/2022 02/24/2022 02/25/2022 1:08 PM CDT Rule Out COVID-19 04/26/2022 04/26/2022 04/26/2022 6:47 AM CDT Rule Out COVID-19 05/17/2022 05/17/2022 05/17/2022 10:20 PM DIVER TENDER Rule Out COVID-19 06/09/2022 06/09/2022 06/09/2022 9:35 AM DIVER TENDER COVID-19 06/09/2022 06/09/2022 06/30/2022 11:4 1 PM DIVER TENDER Rule Out COVID-19 11/10/2022 11/10/2022 11/11/2022 12:17 PM CDT Rule Out COVID-19 03/07/2023 03/07/2023 03/07/2023 1:20 PM CDT Rule Out COVID-19 12/26/2023 12/26/2023 12/26/2023 9:50 AM CDT Rule Out COVID-19 04/09/2024 04/09/2024 04/10/2024 6:48 PM CDT Rule Out COVID-19 10/04/2024 10/04/2024 10/05/2024 9:42 AM CDT Assessment Noted Time PHQ-9 Depression Total Score: 9 06/04/20 10:35 AM DIVER TENDER documented as of this encounter Care Teams Market Manager Relationship Specialty Start Date End Date Marija Edgar APRN ROLLER STITCHER [address] [place], [place] [phone] PCP - General Nurse Practitioner 04/30/20 04/14/23 Esha Grimm PA-C [address] [place] [phone] PCP - General Family Medicine 05/04/23 Lita Oseguera Personal Advocate & Liaison (PAL) 02/28/20 03/27/23 Rakesh Cid PA-C [address] [place] [address] Assigned PCP 03/02/20 06/07/20 Chanelle Mccann APRN CNM [address] [address] [facility], [address] [address] Assigned OBGYN Provider 05/02/2005/09 Lesley Guillermo CHW Community Health Worker 05/30/2005/12 Kyara De La Fuente, RN Specialty Wire Frame Dipper Neurology 06/04/20 03/05/21 Marija Edgar APRN ROLLER STITCHER [address] [place] [address] Assigned PCP 06/08/20 04/29/23 Mynor Broussard MD [address] [place] [address] Assigned Surgical Provider 06/01/20 11/28/21 Keisha Dotson MD [address] [place], [place] [address]995 Assigned Neuroscience Provider 06/04/20 04/01/23 Mary Mejia Financial Resource Worker 08/07/20 08/21/20 Stacey Briones, [facility] Lead Wire Frame Dipper Primary Care - CC 08/11/2012/30 Lesley Guillermo, [facility] Community Health Worker 08/11/2010/01 Mary Mejia Financial Resource Worker 09/02/20 10/06/20 Lita Oseguera Personal Advocate & Liaison (PAL) Family Medicine 09/10/20 09/21/20 Galo Burrell MD Assigned Heart and Vascular Provider 10/05/20 04/02/22 Cristina Wood Financial Resource Worker 10/07/20 10/14/20 Lesley Guillermo, [facility] Community Health Worker 10/23/2012/30 Meredith Bedoya Financial Resource Worker 10/23/20 11/23/20 Cristina Wood Financial Resource Worker 02/09/21 02/09/21 Diana Desir, [facility] [address] [place] [address] Pharmacist Pharmacist 04/17/21 Rain Galaviz PA-C [address] [address] Physician Dietist Dermatology 04/28/21 Summer Lara MD [address] [place] [address] [place] [address] Assigned OBGYN Provider 05/10/2105/23 Summer Lara MD [address] [facility] [place] [address] Assigned OBGYN Provider 05/31/21 Summer Lara MD [address] [place] [address] [place] [address] Assigned OBGYN Provider 05/24/2105/30 Tavia Wyatt MD [address] [facility] [place] [address] Dermatology 07/14/21 Johnny Murillo MD [address] [place] [address] Assigned Musculoskeletal Provider 08/30/21 03/17/22 Erica Farrell APRN ROLLER STITCHER [address] [facility] [address] [place] [address] Nurse Practitioner Cardiovascular Disease 09/09/21 [facility] [address] [facility] [place] [address] Pharmacist Pharmacist 09/24/21 09/29/21 Tavia Wyatt MD [address] [place] [address] Assigned Surgical Provider 11/29/21 05/07/22 Diana Desir, [facility] [address] [place] [address] Assigned MTM Pharmacist 01/02/22 Rich Barrett MD [address] [place] [address] Physician Ophthalmology 01/21/22 Neil Kent MD [address] [place] [address] Dermatology 02/24/22 Roney Story DPM [address] [facility] [address] [place] [address] Assigned Musculoskeletal Provider 03/20/22 08/13/22 Erica Farrell APRN ROLLER STITCHER [address] [place] [address] Assigned Heart and Vascular Provider 04/03/22 04/16/22 Diana Desir, [facility] [address] [place] [address] Assigned MTM Pharmacist 04/07/22 Jelena David OD [address] [facility] [place] [address] Assigned Surgical Provider 05/08/22 10/08/22 Galo Burrell MD Assigned Heart and Vascular Provider 04/17/22 06/11/22 Livan Sharif MD [address] [place] [phone] Cardiovascular Disease 05/14/22 Livan Sharif MD [address] [place] [phone] Assigned Heart and Vascular Provider 06/12/22 07/23/22 Catherine Cm MD [address] [place] 9[address]235 Cardiovascular Disease 07/21/22 Valery Veronica, PA-C [address] [place] [address] [phone] Physician Dietist Dermatology 07/21/22 Catherine Cm MD [address] [place] 577205 Assigned Heart and Vascular Provider 07/24/22 11/05/22 Johnny Murillo MD [address] [place] [address] [phone] Assigned Musculoskeletal Provider 08/14/22 10/08/22 Brea Quinn APRN ROLLER STITCHER [address] [place] [address] [phone] Nurse Practitioner Dermatology 09/21/22 Brea Quinn APRN ROLLER STITCHER [address] [facility] [place] [address] Assigned Surgical Provider 10/09/22 05/01/24 [place] [address] [address] Assigned Musculoskeletal Provider 10/09/22 05/01/24 Livan Sharif MD [address] [address] [place] [address] Assigned Heart and Vascular Provider 11/06/22 11/12/22 Catherine Cm MD [address] [address] [place] [address] Assigned Heart and Vascular Provider 11/13/22 05/27/23 Sydnie Martinez, RN Personal Advocate & Liaison (PAL) Family Medicine 03/28/23 07/31/23 Alfonso Renteria MD [address] [facility] [address] [place] [address] Assigned Neuroscience Provider 04/02/23 09/29/24 Cheng Todd PA-C [address] [place] [address] [phone] Assigned PCP 04/30/23 07/15/23 Radha Lomeli APRN ROLLER STITCHER [address] [address] [place] [address] Assigned Heart and Vascular Provider 05/28/23 Jelena David OD [address] [facility] [address] MD Ophthalmology 06/15/23 Pao Joseph, RN Personal Advocate & Liaison (PAL) Nurse 08/01/23 11/07/23 Esha Grimm PA-C [address] [place] [phone] Assigned PCP 07/16/23 Valery Veronica PA-C [address] [place] [address] [phone] Physician Dietist Dermatology 09/19/23 Rey Tay MD [address] [place] [address] 028325 MD Gastroenterology 09/20/23 Rocky Zepeda DO [address] [place] [address] 379255 Physician Gastroenterology 09/20/23 Philip Dumont MD [address] [place] [address] 398185 Physician Ophthalmology 09/22/23 Meredith Carrera PA-C [address] [place] [address] 730875 Assigned Gastroenterology Provider 11/01/23 Neil Kent MD [address] 835260 Dermatology 11/02/23 [place] [address] [place] [address] Neurological Surgery 12/26/23 Audrey Waite PA-C 500 [place] [address] Physician Dietist Dermatology 02/28/24 Valery Veronica PA-C 864234 [address] [address] Physician Dietist Dermatology 04/10/24 Herminia Hatch MD [address] [place] [address] [phone] Assigned Rheumatology Provider 07/02/24 [place] [address] [place] [address] [place] [address] Ophthalmology 08/30/24 [place] [address] [place] [address] Assigned Neuroscience Provider 09/30/24 Maru Man PA-C [address] [address] Physician Dietist Dermatology 10/03/24 documented as of this encounter
--- OUTSIDE RECORDS SUMMARY | 2024-10-18 19:24 | XMS_ITS | Encounter Summary ---
Author Organization [facility] Address [address] [place] [address] Care Team Providers Care Irrigation Tax Assessor Collector Name Role Phone Lita Oseguera Unavailable Unavailable Rakesh Cid PA-C Unavailable [phone] Marija Edgar APRN CHIEF PASSENGER SHIP STEWARD/STEWARDESS Primary Care Provider + Chanelle Mccann APRN CN Unavailab le Lesley Gulilermo CHW Unavailable [phone] Kyara De La Fuente RN Unavailable [phone] Marija Edgar APRN [facility] Unavailable Mynor Broussard MD Unavailable [phone] Keisha Dotson MD Unavailable Mary Mejia Unavailable Unavailable Stacey Briones MARKETING PROGRAM MANAGER Unavailable [phone] Lesley Guillermo CHW Unavailable [phone] Mary Mejia Unavailable Unavailable Lita Oseguera Unavailable Unavailable Galo Burrell MD Unavailable Unavailable Cristina Wood Unavailable Lesley Guillermo CHW Unavailable [phone] Meredith Bedoya Unavailable Unavailable Cristina Wood Unavailable Diana Desir [facility] Unavailable [phone] Rain Galaviz PA-C Unavailable Summer Lara MD Unavailable [phone] Summer Lara MD Unavailable [phone] Summer Lara MD Unavailable [phone] Tavia Wyatt MD Unavailable [phone] Johnny Murillo MD Unavailable [phone] Erica Farrell APRN CHIEF PASSENGER SHIP STEWARD/STEWARDESS Unavailable Teresita Bean [facility] Unavailable Tavia Wyatt MD Unavailable [phone] Diana Desir [facility] Unavailable [phone] Rich Barrett MD Unavailable Neil Kent MD Unavailable Roney StoryM Unavailable Erica Farrell APRN CHIEF PASSENGER SHIP STEWARD/STEWARDESS Unavailable + Diana Desir [facility] Unavailable [phone] Jelena David OD Unavailable Galo Burrell MD Unavailable Unavailable Livan Sharif MD Unavailable Livan Sharif MD Unavailable + Catherine Cm MD Unavailable + Valery Veronica PA-C Unavailable [phone] Catherine Cm MD Unavailable + Johnny Murillo MD Unavailable [phone] Brea Quinn APRN CHIEF PASSENGER SHIP STEWARD/STEWARDESS Unavailable [phone] [place], Brea P TOWER ATTENDANT CHIEF PASSENGER SHIP STEWARD/STEWARDESS Unavailable [phone] Jose Francisco Johnson MD Unavailable Livan Sharif MD Unavailable Catherine Cm MD Unavailable + Sydnie Martinez RN Unavailable Unavailable Alfonso Renteria MD Unavailable [phone] Esha Grimm PA-C Primary Care Provider Cheng Todd PA-C Unavailable Armani Radha Sia TOWER ATTENDANT CHIEF PASSENGER SHIP STEWARD/STEWARDESS Unavailable Jelena David OD Unavailable Pao Joseph RN Unavailable Unavailable Esha Grimm PA-C Unavailable [phone] Valery Veronica PA-C Unavailable Rey Tay MD Unavailable Rocky Zepeda DO Unavailable Philip Dumont MD Unavailable Meredith Carrera PA-C Unavailable Neil Kent MD Unavailable Juan Pablo Emmanuel MD Unavailable [phone] Audrey Waite PA-C Unavailable Valery Veronica PA-C Unavailable Herminia Hatch MD Unavailable Jelena David OD Unavailable Juan Pablo Emmanuel MD Unavailable Maru Man PA-C Unavailable Encounter Details Date Type Department Care Team (Late st Contact Info) Description 05/16/2020 [facility] Medical Advice [facility] [address] [phone] Jerome Ferrell RN Social History Tobacco Use Types Packs/Day [...] CDT Legal Sex Female 4:13 AM TOOL ANALYST Gender Identity Female 03/02/2021 5:45 PM CDT Sexual Orientation Straight 02/28/2020 12 :51 AM CDT COVID-19 Exposure Response Date Recorded In the last month, have you been in contact with someone who was confirmed or suspected to have Coronavirus / COVID-19? No / Unsure 05/12/2020 9:03 AM TOOL ANALYST documented as of this encounter Plan of Treatment Upcoming Encounters Date Type Department Care Team (Late st Contact Info) Description 10/22/2024 11:00 AM CDT Office Visit [address] [phone] Maru Man PA-C [address] [place] [address] 10/23/2024 PRE VISIT [facility] - [address] [address] Johnny Penn MD [address] [facility] [place] [place], [place] [address] Previsit 10/23/2024 9:30 AM CDT Office Visit [facility] - [address], [address] [address] [place] [address] [place] [address] Johnny Penn MD [address] [place] [address] 10/24/2024 4:00 PM CDT Office Visit [facility] [address] [place] [phone] Jelena David, OD 3305 [facility] [place] [address] 10/31/2024 9:15 AM CDT Virtual Visit [facility] [address] 4th [place] [phone] Meredith Carrera PA-C [address] [place] [address] 12/20/2024 2:30 PM CDT Office Visit [facility] [phone] [place] [phone] Esha Grimm PA-C [address] [place] [phone] documented as of this encounter Visit Diagnoses Not on filedocumented in this encounter Additional Health Concerns Infection Onset Date Last Indicated Resolved Time Rule Out COVID-19 07/30/2020 07/30/2020 07/30/2020 7:11 PM TOOL ANALYST Rule Out COVID-19 08/30/2020 08/30/2020 08/30/2020 5:05 PM TOOL ANALYST Rule Out COVID-19 09/24/2020 09/24/2020 09/24/2020 9:24 AM CDT Rule Out COVID-19 11/05/2020 11/05/2020 11/06/2020 1:09 PM CDT Rule Out COVID-19 05/11/2021 05/11/2021 05/13/2021 10:18 AM CDT Rule Out COVID-19 07/13/2021 07/13/2021 07/14/2021 3:04 PM TOOL ANALYST Rule Out COVID-19 07/18/2021 07/18/2021 07/20/2021 1:56 PM TOOL ANALYST COVID-19 07/18/2021 07/18/2021 08/08/2021 11:3 9 PM TOOL ANALYST Rule Out COVID-19 12/18/2021 12/18/2021 12/19/2021 11:34 AM CDT Rule Out COVID-19 02/24/2022 02/24/2022 02/25/2022 1:08 PM CDT Rule Out COVID-19 04/26/2022 04/26/2022 04/26/2022 6:47 AM CDT Rule Out COVID-19 05/17/2022 05/17/2022 05/17/2022 10:20 PM TOOL ANALYST Rule Out COVID-19 06/09/2022 06/09/2022 06/09/2022 9:35 AM TOOL ANALYST COVID-19 06/09/2022 06/09/2022 06/30/2022 11:4 1 PM TOOL ANALYST Rule Out COVID-19 11/10/2022 11/10/2022 11/11/2022 [...] as of this encounter Care Teams Irrigation Tax Assessor Collector Relationship Specialty Start Date End Date Marija Edgar APRN CHIEF PASSENGER SHIP STEWARD/STEWARDESS [address] [place] [address] PCP - General Nurse Practitioner 04/30/20 04/14/23 Esha Grimm PA-C [address] [place] [phone] PCP - General Family Medicine 05/04/23 Lita Oseguera Personal Advocate & Liaison (PAL) 02/28/20 03/27/23 Rakesh Cid PA-C [address] [facility] [place] [address] Assigned PCP 03/02/20 06/07/20 Chanelle Mccann APRN CNM [address] [address] 200 [place] [address] Assigned OBGYN Provider 05/02/2005/09 Lesley Guillermo, CHW Community Health Worker 05/30/2005/12 Kyara De La Fuente, RN Specialty Shift Engineer Neurology 06/04/20 03/05/21 Marija Edgar APRN CHIEF PASSENGER SHIP STEWARD/STEWARDESS [address] [facility] [address] Assigned PCP 06/08/20 04/29/23 Mynor Broussard MD 6363 [facility] 500 [place], [place] 658745 Assigned Surgical Provider 06/01/20 11/28/21 Keisha Dotson MD 9 [place], [place] 723365 Assigned Neuroscience Provider 06/04/20 04/01/23 Chico Mejiara Financial Resource Worker 08/07/20 08/21/20 Stacey Briones, [facility] Lead Shift Engineer Primary Care - CC 08/11/2012/30 Lesley Guillermo, [facility] Community Health Worker 08/11/2010/01 dAiti Mejiandra Financial Resource Worker 09/02/20 10/06/20 Lita Oseguera Personal Advocate & Liaison (PAL) Family Medicine 09/10/20 09/21/20 Galo Burrell MD Assigned Heart and Vascular Provider 10/05/20 04/02/22 Cristina Wood Financial Resource Worker 10/07/20 10/14/20 Lesley Guillermo, [facility] Community Health Worker 10/23/2012/30 Meredith Bedoya Financial Resource Worker 10/23/20 11/23/20 Cristina Wood Financial Resource Worker 02/09/21 02/09/21 Diana Desir, [facility] [address] [facility] [place] [address] Pharmacist Pharmacist 04/17/21 Rain Galaviz PA-C [address] [place] [address] [place] [phone] Physician Technical Specialist Cytology Dermatology 04/28/21 Summer Lara MD [address] [place] [address] Assigned OBGYN Provider 05/10/2105/23 Summer Lara MD [address] [place] [address] Assigned OBGYN Provider 05/31/21 Summer Lara MD [address] [place] [address] Assigned OBGYN Provider 05/24/2105/30 Tavia Wyatt MD [address] [place] [address] Dermatology 07/14/21 Johnny Murillo MD [address] [place] [address] Assigned Musculoskeletal Provider 08/30/21 03/17/22 Erica Farrell APRN CHIEF PASSENGER SHIP STEWARD/STEWARDESS 6405 [facility] [address] [place], [place] 803475 Nurse Practitioner Cardiovascular Disease 09/09/21 Teresita Bean [facility] [address] [place] [phone] Pharmacist Pharmacist 09/24/21 09/29/21 Tavia Wyatt MD [address] [place], [place] [phone] Assigned Surgical Provider 11/29/21 05/07/22 Diana Desir, [facility] [address] [place] [address] Assigned MTM Pharmacist 01/02/22 Rich Barrett MD [address] [place] [address] Physician Ophthalmology 01/21/22 Neil Kent MD 500 [place] [address] Dermatology 02/24/22 Roney Story DPM [address] [facility] [address] [place] [address] Assigned Musculoskeletal Provider 03/20/22 08/13/22 Erica Farrell APRN CHIEF PASSENGER SHIP STEWARD/STEWARDESS 1700 [place] [address] Assigned Heart and Vascular Provider 04/03/22 04/16/22 [facility] 3033 [place] [address] Assigned MTM Pharmacist 04/07/22 Jelena David OD [address] [facility] [place] [address] Assigned Surgical Provider 05/08/22 10/08/22 Galo Burrell MD Assigned Heart and Vascular Provider 04/17/22 06/11/22 Livan Sharif MD [address] [place] 849325 Cardiovascular Disease 05/14/22 Livan Sharif MD [address] [place] 603255 Assigned Heart and Vascular Provider 06/12/22 07/23/22 Catherine Cm MD [address] [address] Cardiovascular Disease 07/21/22 Valery Veronica, PA-C [address] [place] [place] [address] 017155 Physician Technical Specialist Cytology Dermatology 07/21/22 Catherine Cm MD 6[address] [facility] [address] [address] Assigned Heart and Vascular Provider 07/24/22 11/05/22 Johnny Murillo MD [address] [place] [address] Assigned Musculoskeletal Provider 08/14/22 10/08/22 Brea Quinn APRN CHIEF PASSENGER SHIP STEWARD/STEWARDESS [address] [place] [address] 954975 Nurse Practitioner Dermatology 09/21/22 Brea Quinn APRN CHIEF PASSENGER SHIP STEWARD/STEWARDESS [address] [place] [address] Assigned Surgical Provider 10/09/22 05/01/24 [place] [address] [address] Assigned Musculoskeletal Provider 10/09/22 05/01/24 Livan Sharif MD [address] [place] [address] Assigned Heart and Vascular Provider 11/06/22 11/12/22 Catherine Cm MD [address] [place] [address] Assigned Heart and Vascular Provider 11/13/22 05/27/23 Sydnie Martinez RN Personal Advocate & Liaison (PAL) Family Medicine 03/28/23 07/31/23 Alfonso Renteria MD 5775 [facility] 200 [place] [address] Assigned Neuroscience Provider 04/02/23 09/29/24 Cheng Todd PA-C [address] [place] [address] Assigned PCP 04/30/23 07/15/23 Radha Lomeli APRN CHIEF PASSENGER SHIP STEWARD/STEWARDESS [address] [place] [address] Assigned Heart and Vascular Provider 05/28/23 Jelena David OD 3[address] [facility] [place] [address] Ophthalmology 06/15/23 Pao Joseph, VJ Personal Advocate & Liaison (PAL) Nurse 08/01/23 11/07/23 Esha Grimm PA-C [address] [place] [address]595183 Assigned PCP 07/16/23 Valery Veronica PA-C [address] [place] [address] Physician Technical Specialist Cytology Dermatology 09/19/23 Rey Tay MD [address] [place] [address] MD Gastroenterology 09/20/23 Rocky Zepeda DO [address] [place] [address] Physician Gastroenterology 09/20/23 Philip Dumont MD [address] [place] [address] Physician Ophthalmology 09/22/23 Meredith Carrera PA-C [address] [place] [address] Assigned Gastroenterology Provider 11/01/23 Neil Kent MD [address] 233[address] Dermatology 11/02/23 [place] [address] [place], [place] 997[address] Neurological Surgery 12/26/23 Audrey Waite PA-C [address] [place] [address] Physician Technical Specialist Cytology Dermatology 02/28/24 Valery Veronica PA-C 113807 [address] [place] [address] Physician Technical Specialist Cytology Dermatology 04/10/24 Herminia Hatch MD 1875 [place] [address] Assigned Rheumatology Provider 07/02/24 Jelena David OD 3305 [facility] [place] [address] Ophthalmology 08/30/24 [place] [address] [address] [facility] [place], [place] 772[address] Assigned Neuroscience Provider 09/30/24 Maru Man PA-C [address] [place] [address] Physician Technical Specialist Cytology Dermatology 10/03/24 documented as of this encounter
--- OUTSIDE RECORDS SUMMARY | 2024-10-18 19:24 | XMS_ITS | Encounter Summary ---
Author Organization [facility] Address [address] [place] [address] Care Team Providers Care Strategic Development Manager Name Role Phone Diana Desir [facility] Unavailable Rain Galaviz PA-C Unavailable [phone] Tavia Wyatt MD Unavailable [phone] Erica Farrell APRN WIRE STRAIGHTENING MACHINE OPERATOR Unavailable Rich Barrett MD Unavailable [phone] Neil Kent MD Unavailable Diana Desir [facility] Unavailable Livan Sharif MD Unavailable Catherine Cm MD Unavailable + Valery Veronica PA-C Unavailable [phone] Brea Quinn CHILD CARE SUPERVISOR WIRE STRAIGHTENING MACHINE OPERATOR Unavailable [phone] Brea Quinn CHILD CARE SUPERVISOR WIRE STRAIGHTENING MACHINE OPERATOR Unavailable [phone] Jose Francisco Johnson MD Unavailable Alfonso Renteria MD Unavailable [phone] Esha Grimm PA-C Primary Care Provider [phone] Radha Lomeli APRN WIRE STRAIGHTENING MACHINE OPERATOR Unavailable Jelena David OD Unavailable [phone] Pao Joseph RN Unavailable Unavailable Esha Grimm PA-C Unavailable [phone] Valery Veronica PA-C Unavailable [phone] Rey Tay MD Unavailable Rocky Zepeda DO Unavailable Philip Dumont MD Unavailable [phone] Meredith Carrera-C Unavailable [phone] Neil Kent MD Unavailable Juan Pablo Emmanuel MD Unavailable Audrey Waite PA-C Unavailable Valery Veronica PA-C Unavailable Herminia Hatch MD Unavailable Jelena David OD Unavailable Juan Pablo Emmanuel MD Unavailable Maru Man-C Unavailable Reason for Visit * Reason Onset Date Comments Medication Question 10/21/2023 omeprazole Encounter Details Date Type Department Care Team (Late st Contact Info) Description 10/21/2023 Telephone [facility] G[facility]ology Clinic [address] [place] [address] Meredith Carrera PA-C [address] [place] [address] [phone] Medication Question (omeprazole ) Social History Tobacco [...] Date Recorded PHQ-2 Score 0 10/25/2023 [facility] - Occupational Stress [...] exercise at this level? 30 min 03/10/2023 Nabb Depression Scale Answer Date Recorded Nabb Depression Score 5 01/14/2021 Last EPDS Self [...] PM CDT Legal Sex Female 4:13 AM WINDOWS SYSTEMS ADMINISTRATOR Gender Identity Female 03/02/2021 5:45 PM [...] routed to: [facility]OLOGY [facility][[id number]] Travel Screening: Not Applicable documented in this encounter Plan of Treatment Upcoming Encounters Date Type Department Care Team (Late st Contact Info) Description 10/22/2024 11:00 AM CDT Office Visit [facility] [address] [phone] Maur Man PA-C [address] [address] 10/23/2024 PRE VISIT [facility] Neurology [address], [address] [place] [phone] Johnny Penn MD [address] 256635 Previsit 10/23/2024 9:30 AM CDT Office Visit [facility] Neurology [address], [address] [place] [phone] [place] [address] [place] 260087 Johnny Penn MD [address] [place] 615705 10/24/2024 4:00 PM CDT [facility] [address] [facility] [address] [place] [phone] Jelena David, [place] 3305 [facility] [place] [address] 10/31/2024 9:15 AM CDT Virtual Visit [facility] Gastroenterology Clinic [place] [address] [facility] [address] 4th [place] [phone] Meredith Carrera PA-C 9 [place] [address] 12/20/2024 2:30 PM CDT Office Visit [facility] [address] [place] [address] Esha Grimm PA-C [address] [place] [address] documented as of this encounter [...] Total Score: 4 06/20/20 23 8:40 AM WINDOWS SYSTEMS ADMINISTRATOR documented as of this encounter Care Teams Strategic Development Manager Relationship Specialty Start Date End Date Esha Grimm PA-C [id number] [place] [phone] PCP - General Family Medicine 05/04/23 Diana Desir [facility] [address] [place] [address] Pharmacist Pharmacist 04/17/21 Rain Galaviz PA-C [address] [place] [address] [place] [address] Physician Suction Plate Roller Hand Dermatology 04/28/21 Tavia Wyatt MD [address] [place] [address] [place] [address] Dermatology 07/14/21 Erica Farrell APRN [facility] [address] [place] [address] Nurse Practitioner Cardiovascular Disease 09/09/21 Rich Barrett MD [address] [place] [address] Physician Ophthalmology 01/21/22 Neil Kent MD [address] [place] [address] 723545 Dermatology 02/24/22 Diana Desir, [facility] 3033 [place], [place] 962536 Assigned MTM Pharmacist 04/07/22 Livan Sharif MD [address] [place] [address] Cardiovascular Disease 05/14/22 Catherine Cm MD [address] [place] 817285 Cardiovascular Disease 07/21/22 Valery Veronica, PAUcheC [address] [place] [address] 638585 Physician Suction Plate Roller Hand Dermatology 07/21/22 Brea Quinn APRN WIRE STRAIGHTENING MACHINE OPERATOR 500 [place], [place] 402745 Nurse Practitioner Dermatology 09/21/22 Brea Quinn APRN WIRE STRAIGHTENING MACHINE OPERATOR 6401 [place] [address] Assigned Surgical Provider 10/09/22 05/01/24 [place] [address] [address] [facility] 300 [place] [address] Assigned Musculoskeletal Provider 10/09/22 05/01/24 Alfonso Renteria MD 5775 [facility] 200 [place], [place] 507966 Assigned Neuroscience Provider 04/02/23 09/29/24 Radha Lomeli APRN WIRE STRAIGHTENING MACHINE OPERATOR [address] [address] Assigned Heart and Vascular Provider 05/28/23 Jelena David OD [address] [facility] [address] [place] [id number] Ophthalmology 06/15/23 Pao Joseph, VJ Personal Advocate & Liaison (PAL) Nurse 08/01/23 11/07/23 Esha Grimm PA-C [address] [place] [address] Assigned PCP 07/16/23 Valery Veronica PA-C [address] [place] [address] Physician Suction Plate Roller Hand Dermatology 09/19/23 Rey Tay MD [address] [place] [address] MD Gastroenterology 09/20/23 Rocky Zepeda DO [address] [place] [address] Physician Gastroenterology 09/20/23 Philip Dumont MD 6 [place], [place] 820225 Physician Ophthalmology 09/22/23 Meredith Carrera PA-C [address] [place] [address] 282485 Assigned Gastroenterology Provider 11/01/23 Neil Kent MD [address] 093460 Dermatology 11/02/23 [place] [address] [address] [facility] [place] [address] Neurological Surgery 12/26/23 Audrey Waite PA-C [address] [place] [address] Physician Suction Plate Roller Hand Dermatology 02/28/24 Valery Veronica PA-C 893129 [place], [place] [address] Physician Suction Plate Roller Hand Dermatology 04/10/24 Herminia Hatch MD 1875 [place] [address] Assigned Rheumatology Provider 07/02/24 Jelena David OD 3305 [facility] [place] [address] Ophthalmology 08/30/24 [place] [address] [place] [address] Assigned Neuroscience Provider 09/30/24 Maru Man PA-C [address] [address] Physician Suction Plate Roller Hand Dermatology 10/03/24 documented as of this encounter
--- OUTSIDE RECORDS SUMMARY | 2024-10-18 19:24 | XMS_ITS | Encounter Summary ---
Author Organization [place] Address [address] [place] [address] Care Team Providers Care Market Risk Manager Name Role Phone Diana Desir [facility] Unavailable Rain Galaviz PA-C Unavailable Tavia Wyatt MD Unavailable [phone] Erica Farrell APRN LONGWALL MACHINE OPERATOR HELPER Unavailable Rich Barrett MD Unavailable [phone] Neil Kent MD Unavailable Diana Desir [facility] Unavailable Livan Sharif MD Unavailable Catherine Cm MD Unavailable + Valery Veronica PA-C Unavailable Brea Quinn PARTS PICKER LONGWALL MACHINE OPERATOR HELPER Unavailable Brea Quinn PARTS PICKER LONGWALL MACHINE OPERATOR HELPER Unavailable Jose Francisco Johnson MD Unavailable Alfonso Renteria MD Unavailable [phone] Esha Grimm PA-C Primary Care Provider Radha Lomeli APRN LONGWALL MACHINE OPERATOR HELPER Unavailable Jelena David OD Unavailable [phone] Pao Joseph RN Unavailable Unavailable AlfaJesusEsha M PA-C Unavailable [phone] Valery Veronica PA-C Unavailable [phone] Rey Tay MD Unavailable Rocky Zepeda DO Unavailable Philip Dumont MD Unavailable [phone] Meredith Carrera PA-C Unavailable [phone] Neil Kent MD Unavailable Juan Pablo Emmanuel MD Unavailable [phone] Audrey Waite PA-C Unavailable [phone] Valery Veronica PA-C Unavailable [phone] Herminia Hatch MD Unavailable Jelena David OD Unavailable Juan Pablo Emmanuel MD Unavailable [phone] Maru Man PA-C Unavailable [phone] Encounter Details Date Type Department Care Team (Late st Contact Info) Description 10/26/2023 [facility] Medical Advice [facility] [address] [address] [place] Social History Tobacco [...] Date Recorded PHQ-2 Score 0 10/25/2023 [facility] - Occupational Stress Questionnaire [...] exercise at this level? 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 Gender Identity Female 03/02/2021 5:45 PM CDT Sexual Orientation Straight 02/28/2020 12 :51 AM CDT documented as of this encounter Plan of Treatment Upcoming Encounters Date Type Department Care Team (Late st Contact Info) Description 10/22/2024 11:00 AM CDT Office Visit [address] [phone] Maru Man PA-C [address] [address] 10/23/2024 PRE VISIT [facility] - [address], [address] [place] [address] Johnny Penn MD [address] [place] [address] Previsit 10/23/2024 9:30 AM CDT Office Visit [facility] [address] [facility], [address] [place] [phone] [place] [address] [place] [address] Johnny Penn MD [address] [place] [place] [address] 10/24/2024 4:00 PM CDT Office Visit [facility] [address] [facility] [address] [place] [phone] Jelena David, [address] [facility] [place] [address] 10/31/2024 9:15 AM CDT Virtual Visit [facility] [address] [phone] Meredith Carrera PA-C [address] [place] [address] 12/20/2024 2:30 PM CDT Office Visit [facility] [address] [place] [address] Esha Grimm PA-C [address] [place] [address] documented as of this encounter [...] as of this encounter Care Teams Market Risk Manager Relationship Specialty Start Date End Date Esha Grimm PA-C [address] [place] [address] PCP - General Family Medicine 05/04/23 Diana Desir, [facility] [address] [facility] [place] [address] Pharmacist Pharmacist 04/17/21 Rain Galaviz PA-C [address] [place] [address] [address] [facility] [place] [address] Physician Export Documents Clerk Dermatology 04/28/21 Tavia Wyatt MD [address] [place] [address] [address] [facility] [place] [address] Dermatology 07/14/21 Erica Farrell APRN LONGWALL MACHINE OPERATOR HELPER [address] [place] [address] Nurse Practitioner Cardiovascular Disease 09/09/21 Rich Barrett MD [address] [place] [address] Physician Ophthalmology 01/21/22 Neil Kent MD 500 [place] [address] Dermatology 02/24/22 [facility] 3033 [place] [address] Assigned [place] Pharmacist 04/07/22 Livan Sharif MD [address] [id number] [place] [address] Cardiovascular Disease 05/14/22 Catherine Cm MD [address] [address] Cardiovascular Disease 07/21/22 Valery Veronica, PA-C 909 [place] [address] Physician Export Documents Clerk Dermatology 07/21/22 Brea Quinn APRN LONGWALL MACHINE OPERATOR HELPER 500 [place] [address] Nurse Practitioner Dermatology 09/21/22 Brea Quinn APRN LONGWALL MACHINE OPERATOR HELPER [address] [place] [address] Assigned Surgical Provider 10/09/22 05/01/24 [place] [address] [address] Assigned Musculoskeletal Provider 10/09/22 05/01/24 Alfonso Renteria MD [address] [place] [address] Assigned Neuroscience Provider 04/02/23 09/29/24 Radha Lomeli APRN LONGWALL MACHINE OPERATOR HELPER [address] [place] [address] Assigned Heart and Vascular Provider 05/28/23 Jelena David, SONJA [address] [facility] [place] [address] MD Ophthalmology 06/15/23 Pao Joseph, VJ Personal Advocate & Liaison (PAL) Nurse 08/01/23 11/07/23 Esha Grimm PA-C [address] [place] [phone] Assigned PCP 07/16/23 Valery Veronica PA-C [address] [place] [address] 799715 Physician Export Documents Clerk Dermatology 09/19/23 Rey Tay MD [address] [place] [address] 240[address] Gastroenterology 09/20/23 Rocky Zepeda DO [address] [place] [address] 919085 Physician Gastroenterology 09/20/23 Philip Dumont MD [address] [place] [address]84[address] Physician Ophthalmology 09/22/23 Meredith Carrera PA-C [address] [place] [address] 582855 Assigned Gastroenterology Provider 11/01/23 Neil Kent MD [address] [place] [address] Dermatology 11/02/23 [place] [address] [place] [address] Neurological Surgery 12/26/23 Audrey Waite PA-C [address] [place] [address] Physician Export Documents Clerk Dermatology 02/28/24 Valery Veronica PA-C [address] [place] [address] Physician Export Documents Clerk Dermatology 04/10/24 Herminia Hatch MD [address] [place] [address] [id number] Assigned Rheumatology Provider 07/02/24 Jelena David OD [address] [place] [address] [place] [address] Ophthalmology 08/30/24 [place] [address] [place] [address] Assigned Neuroscience Provider 09/30/24 Maru Man PA-C [address] [place] [address] Physician Export Documents Clerk Dermatology 10/03/24 documented as of this encounter
--- OUTSIDE RECORDS SUMMARY | 2024-10-18 19:24 | XMS_ITS | Encounter Summary ---
Author Organization [place] Address [address] [place] [address] Care Team Providers Care Company Dancer Name Role Phone Lita Oseguera Unavailable Unavailable Marija Edgar APRN WEB EDITOR Primary Care Provider + Chanelle Mccann APRN CNM Unavailab le Kyara De La Fuente RN Unavailable [phone] Marija Edgar APRN WEB EDITOR Unavailable Mynor Broussard MD Unavailable [phone] Keisha Dotson MD Unavailable Mary Mejia Unavailable Unavailable Stacey Briones ASSOCIATE VETERINARIAN Unavailable Lesley Guillermo CHW Unavailable Mary Mejia Unavailable Unavailable Lita Oseguera Unavailable Unavailable Galo Burrell MD Unavailable Unavailable Cristina Wood Unavailable Lesley Guillermo CHW Unavailable Meredith Bedoya Unavailable Unavailable Cristina Wood Unavailable Diana Desir [facility] Unavailable [place], Rain Lena PA-C Unavailable Summer Lara MD Unavailable [phone] Sumemr Lara MD Unavailable Summer Lara MD Unavailable [phone] Tavia Wyatt MD Unavailable [phone] Johnny Murillo MD Unavailable [phone] Erica Farrell APRN WEB EDITOR Unavailable VikasTeresita H Unavailable Tavia Wyatt MD Unavailable [phone] Diana Desir [facility] Unavailable [phone] Rich Barrett MD Unavailable [phone] Neil Kent MD Unavailable Roney Story [facility] Unavailable Erica Farrell APRN WEB EDITOR Unavailable Diana Desir [facility] Unavailable [phone] Jelena David OD Unavailable Galo Burrell MD Unavailable Unavailable Livan Sharif MD Unavailable Livan Sharif MD Unavailable Catherine Cm MD Unavailable + Valery Veronica PA-C Unavailable [phone] Catherine Cm MD Unavailable + Johnny Murillo MD Unavailable +[phone] Brea Quinn APRN WEB EDITOR Unavailable [phone] Brea Quinn FINE GRADER WEB EDITOR Unavailable [phone] Jose Francisco Johnson MD Unavailable Livan Sharif MD Unavailable Catherine Cm MD Unavailable + Sydnie Martinez RN Unavailable Unavailable Alfonso Renteria MD Unavailable [phone] Esha Grimm PA-C Primary Care Provider Cheng oTdd PA-C Unavailable Radha Lomeli APRN WEB EDITOR Unavailable Jelena David OD Unavailable [phone] Pao Joseph RN Unavailable Unavailable Esha Grimm PA-C Unavailable [phone] Valery Veronica PA-C Unavailable Rey Tay MD Unavailable Rocky Zepeda DO Unavailable Philip Dumont MD Unavailable Meredith Carrera PA-C Unavailable Neil Kent MD Unavailable Juan Pablo Emmanuel MD Unavailable Audrey Waite PA-C Unavailable Valery Veronica PA-C Unavailable Herminia Hatch MD Unavailable Jelena David OD Unavailable [phone] Juan Pablo Emmanuel MD Unavailable [phone] Maru Man PA-C Unavailable Reason for Visit * Reason Comments Medication Refill Encounter Details Date Type Department Care Team (Late st Contact Info) Description 07/14/[address] [address] Rakesh Cid PA-C [address] [place] [address] Medication Refill Social History Tobacco Use Types [...] PM CDT Legal Sex Female 4:13 AM THREE KNIFE TRIMMER Gender Identity Female 03/02/2021 5:45 PM CDT Sexual Orientation Straight 02/28/2020 12 :51 AM CDT COVID-19 Exposure Response Date Recorded In the last month, have you been in contact with someone who was confirmed or suspected to have Coronavirus / COVID-19? No / Unsure 06/24/2020 3:01 PM THREE KNIFE TRIMMER documented as of this encounter Miscellaneous Notes * Telephone Encounter - Estephania Black RN - 07/16/2020 11:38 AM THREE KNIFE TRIMMER Routing refill request to provider for review/approval because: Labs out of range: PHQ9> 4 patient was seen 3 weeks ago. Estephania Black RN Flex E KNIFE TRIMMER * Telephone Encounter - Brea Perry RN - 07/16/2020 11:34 AM THREE KNIFE TRIMMER Routing to correct clinic. E KNIFE TRIMMER documented in this encounter Plan of Treatment Upcoming Encounters Date Type Department Care Team (Late st Contact Info) Description 10/22/2024 11:00 AM CDT Office Visit [facility] [address] [phone] Maru Man PA-C [address] [address] 10/23/2024 PRE VISIT [facility] Neurology [facility] [address] [facility], [address] [place] [phone] Johnny Penn MD [address] 348795 Previsit 10/23/2024 9:30 AM CDT Office Visit [facility] Neurology [facility] [address] [facility], [address] [place] [phone] [place] [address] [place], [place] [address] Johnny Penn MD [address] [place] 757555 10/24/2024 4:00 PM CDT Office Visit [facility] [address] [facility] [address] [place] [phone] Jelena David, [address] [facility] [place] [address] 10/31/2024 9:15 AM CDT Virtual Visit [facility] [address] [address] Meredith Carrera PA-C 909 [place], [place] 194[address] 12/20/2024 2:30 PM CDT Office Visit [facility] [address] [place] [address] Esha Grimm PA-C [address] [place] [address] documented as of this encounter Visit Diagnoses Diagnosis Anxiety Anxiety state, unspecified documented in this encounter Additional Health Concerns Infection Onset Date Last Indicated Resolved Time Rule Out COVID-19 07/30/2020 07/30/2020 07/30/2020 7:11 PM THREE KNIFE TRIMMER Rule Out COVID-19 08/30/2020 08/30/2020 08/30/2020 5:05 PM THREE KNIFE TRIMMER Rule Out COVID-19 09/24/2020 09/24/2020 09/24/2020 9:24 AM CDT Rule Out COVID-19 11/05/2020 11/05/2020 11/06/2020 1:09 PM CDT Rule Out COVID-19 05/11/2021 05/11/2021 05/13/2021 10:18 AM CDT Rule Out COVID-19 07/13/2021 07/13/2021 07/14/2021 3:04 PM THREE KNIFE TRIMMER Rule Out COVID-19 07/18/2021 07/18/2021 07/20/2021 1:56 PM THREE KNIFE TRIMMER COVID-19 07/18/2021 07/18/2021 08/08/2021 11:3 9 PM THREE KNIFE TRIMMER Rule Out COVID-19 12/18/2021 12/18/2021 12/19/2021 11:34 AM CDT Rule Out COVID-19 02/24/2022 02/24/2022 02/25/2022 1:08 PM CDT Rule Out COVID-19 04/26/2022 04/26/2022 04/26/2022 6:47 AM CDT Rule Out COVID-19 05/17/2022 05/17/2022 05/17/2022 10:20 PM THREE KNIFE TRIMMER Rule Out COVID-19 06/09/2022 06/09/2022 06/09/2022 9:35 AM THREE KNIFE TRIMMER COVID-19 06/09/2022 06/09/2022 06/30/2022 11:4 1 PM THREE KNIFE TRIMMER Rule Out COVID-19 11/10/2022 11/10/2022 11/11/2022 12:17 PM CDT Rule Out COVID-19 03/07/2023 03/07/2023 03/07/2023 1:20 PM CDT Rule Out COVID-19 12/26/2023 12/26/2023 12/26/2023 9:50 AM CDT Rule Out COVID-19 04/09/2024 04/09/2024 04/10/2024 6:48 PM CDT Rule Out COVID-19 10/04/2024 10/04/2024 10/05/2024 9:42 AM CDT Assessment Noted Time PHQ-9 Depression Total Score: 9 06/25/20 7:04 AM THREE KNIFE TRIMMER documented as of this encounter Care Teams Company Dancer Relationship Specialty Start Date End Date Marija Edgar APRN WEB EDITOR PCP - General Nurse Practitioner 04/30/20 04/14/23 Esha Grimm PA-C [address] [place] [phone] PCP - General Family Medicine 05/04/23 Lita Oseguera Personal Advocate & Liaison (PAL) 02/28/20 03/27/23 Chanelle Mccann APRN CNM [address] [facility] [facility] 200 [place] [address] Assigned OBGYN Provider 05/02/2005/09 Kyara De La Fuente, RN Specialty Coffee Attendant Neurology 06/04/20 03/05/21 Marija Edgar APRN WEB EDITOR Assigned PCP 06/08/20 04/29/23 Mynor Broussard MD 6[address] [facility] 500 [place] [address] Assigned Surgical Provider 06/01/20 11/28/21 Keisha Dotson MD 909 [place], [place] 40001[address] Assigned Neuroscience Provider 06/04/20 04/01/23 JackieChicora Financial Resource Worker 08/07/20 08/21/20 Stacey Briones, [facility] Lead Coffee Attendant Primary Care - CC 08/11/2012/30 Lesley Guillermo, [facility] Community Health Worker 08/11/2010/01 Mary Mejia Financial Resource Worker 09/02/20 10/06/20 Lita Oseguera Personal Advocate & Liaison (PAL) Family Medicine 09/10/20 09/21/20 Galo Burrell MD Assigned Heart and Vascular Provider 10/05/20 04/02/22 Cristina Wood Financial Resource Worker 10/07/20 10/14/20 Lesley Guillermo, [facility] Community Health Worker 10/23/2012/30 Meredith Bedoya Financial Resource Worker 10/23/20 11/23/20 Cristina Wood Financial Resource Worker 02/09/21 02/09/21 Diana Desir, [facility] [address] [place] [address] Pharmacist Pharmacist 04/17/21 Rain Galaviz PA-C [address] [place] [address] DR [address] [facility] [address] Physician Hull Line Crew Member Dermatology 04/28/21 Summer Lara MD [address] [place] [address] Assigned OBGYN Provider 05/10/2105/23 Summer Lara MD [address] [place] [address] Assigned OBGYN Provider 05/31/21 Summer Lara MD [address] [place] [address] Assigned OBGYN Provider 05/24/2105/30 Tavia Wyatt MD [address] [place] [address] Dermatology 07/14/21 Johnny Murillo MD [address] [place] [address] Assigned Musculoskeletal Provider 08/30/21 03/17/22 Erica Farrell APRN WEB EDITOR [address] [facility] [address] [place] [address] Nurse Practitioner Cardiovascular Disease 09/09/21 Teresita Bean [facility] [address] [place] [address] [phone] Pharmacist Pharmacist 09/24/21 09/29/21 Tavia Wyatt MD [address] [place] [address] Assigned Surgical Provider 11/29/21 05/07/22 Diana Desir, [facility] 3033 [place] [address] Assigned MTM Pharmacist 01/02/22 [place] [address] [place] [address] Physician Ophthalmology 01/21/22 Neil Kent MD 500 [place] [address] Dermatology 02/24/22 Roney Story DPM [address] [facility] [address] [place] [address] Assigned Musculoskeletal Provider 03/20/22 08/13/22 Erica Farrell APRN WEB EDITOR 1700 [place] [address] Assigned Heart and Vascular Provider 04/03/22 04/16/22 Diana Desir, [facility] [address] [place] [address] Assigned MTM Pharmacist 04/07/22 Jelena David OD [address] [facility] [place] [address] Assigned Surgical Provider 05/08/22 10/08/22 Galo Burrell MD Assigned Heart and Vascular Provider 04/17/22 06/11/22 Livan Sharif MD [address] [facility] [address] [place] [address] Cardiovascular Disease 05/14/22 Livan Sharif MD [address] [facility] [address] [place] [address] Assigned Heart and Vascular Provider 06/12/22 07/23/22 Catherine Cm MD [address] [address] [place] 752895 Cardiovascular Disease 07/21/22 Valery Veronica, PAUcheC [address] [place] [address] 453385 Physician Hull Line Crew Member Dermatology 07/21/22 Catherine Cm MD [address] [address] [place] [address] Assigned Heart and Vascular Provider 07/24/22 11/05/22 Johnny Murillo MD [address] [place] [address] Assigned Musculoskeletal Provider 08/14/22 10/08/22 Brea Quinn APRN WEB EDITOR [address] [place] [address] Nurse Practitioner Dermatology 09/21/22 Brea Quinn APRN WEB EDITOR [address] [place] [address] [place] [address] Assigned Surgical Provider 10/09/22 05/01/24 [place] [address] [place] [address] [place] [address] Assigned Musculoskeletal Provider 10/09/22 05/01/24 Livan Sharif MD [address] [facility] [address] [place] [address] Assigned Heart and Vascular Provider 11/06/22 11/12/22 Catherine Cm MD [address] [place] [address] [place] [address] Assigned Heart and Vascular Provider 11/13/22 05/27/23 Sydnie Martinez RN Personal Advocate & Liaison (PAL) Family Medicine 03/28/23 07/31/23 Alfonso Renteria MD [address] [facility] 200 [place] [address] Assigned Neuroscience Provider 04/02/23 09/29/24 Cheng Todd PA-C [address] [place] [address] [id number] Assigned PCP 04/30/23 07/15/23 Radha Lomeli, ARLENE WEB EDITOR [address] [place] [address] Assigned Heart and Vascular Provider 05/28/23 Jelena David OD [address] [facility] [place] [address] Ophthalmology 06/15/23 Pao Joseph RN Personal Advocate & Liaison (PAL) Nurse 08/01/23 11/07/23 Esha Grimm PA-C [address] [place] [address] Assigned PCP 07/16/23 Valery Veronica PA-C [address] [place] [address] Physician Hull Line Crew Member Dermatology 09/19/23 Rey Tay MD [address] [place] [address] MD Gastroenterology 09/20/23 Rocky Zepeda DO [address] [place] [address] 653025 Physician Gastroenterology 09/20/23 Philip Dumont MD [address] [place] [address] 536065 Physician Ophthalmology 09/22/23 Meredith Carrera PA-C [address] [place] [address] 384705 Assigned Gastroenterology Provider 11/01/23 Neil Kent MD [address] [address] Dermatology 11/02/23 [place] [address] [place], [place] 503067 Neurological Surgery 12/26/23 Audrey Waite PA-C [address] [place] [address] 629995 Physician Hull Line Crew Member Dermatology 02/28/24 Valery Veronica PA-C [address] [place] [address] Physician Hull Line Crew Member Dermatology 04/10/24 Herminia Hatch MD [facility]5 [place], [place] [phone] Assigned Rheumatology Provider 07/02/24 Jelena David OD [address] [facility] [place] [address] Ophthalmology 08/30/24 [place] [address] [place] [address] Assigned Neuroscience Provider 09/30/24 Maru Man PA-C [address] [place] [address] Physician Hull Line Crew Member Dermatology 10/03/24 documented as of this encounter
--- OUTSIDE RECORDS SUMMARY | 2024-10-18 19:24 | XMS_ITS | Encounter Summary ---
Author Organization [facility] Address [address] [place] [address]141 Care Team Providers Care Foil Stamp Operator Name Role Phone Lita Oseguera Unavailable Unavailable Marija Edgar APRN HYDRAULIC STRAINER OPERATOR Primary Care Provider + Chanelle Mccann APRN CNM Unavailab le Kyara De La Fuente RN Unavailable [phone] Marija Edgar APRN HYDRAULIC STRAINER OPERATOR Unavailable Mynor Broussard MD Unavailable [phone] Keisha Dotson MD Unavailable Mary Mejia Unavailable Unavailable Stacey Briones SENIOR PRODUCT ANALYST Unavailable [phone] Lesley Guillermo CHW Unavailable Mary Mejia Unavailable Unavailable Lita Oseguera Unavailable Unavailable Galo Burrell MD Unavailable Unavailable Cristina Wood Unavailable Lesley Guillermo CHW Unavailable Meredith Bedoya Unavailable Unavailable Cristina Wood Unavailable Diana Desir [facility] Unavailable Ruhland, Rain Lena PA-C Unavailable Summer Lara MD Unavailable [phone] Summer Lara MD Unavailable [phone] Summer Lara MD Unavailable [phone] Tavia Wyatt MD Unavailable [phone] Johnny Murillo MD Unavailable [phone] Erica Farrell APRN HYDRAULIC STRAINER OPERATOR Unavailable VikasTeresita H Unavailable Tavia Wyatt MD Unavailable [phone] Diana Desir [facility] Unavailable [phone] Rich Barrett MD Unavailable [phone] Neil Kent MD Unavailable Roney Story [facility] Unavailable Erica Farrell APRN HYDRAULIC STRAINER OPERATOR Unavailable Diana Desir [facility] Unavailable [phone] Jelena David OD Unavailable Galo Burrell MD Unavailable Unavailable Livan Sharif MD Unavailable Livan Sharif MD Unavailable Catherine Cm MD Unavailable + Valery Veronica PA-C Unavailable [phone] Catherine Cm MD Unavailable + Johnny Murillo MD Unavailable [phone] Brea Quinn APRN HYDRAULIC STRAINER OPERATOR Unavailable [phone] Brea Quinn [employer] HYDRAULIC STRAINER OPERATOR Unavailable [phone] Jose Francisco Johnson MD Unavailable Livan Sharif MD Unavailable Catherine Cm MD Unavailable + Sydnie Martinez RN Unavailable Unavailable Alfonso Renteria MD Unavailable [phone] Esha Grimm PA-C Primary Care Provider Cheng Todd PA-C Unavailable Radha Lomeli APRN HYDRAULIC STRAINER OPERATOR Unavailable Jelena David OD Unavailable [phone] Pao Joseph RN Unavailable Unavailable Esha Grimm PA-C Unavailable [phone] Valery Veronica PA-C Unavailable Rey Tay [...] Contact Info) Description 07/17/2020 MyC Medical Advice Adam [facility] Epilepsy [facility] Emergency Department [address], [address] [place] [address] Keisha Dotson MD [address] [place] [address]141 Social History Tobacco Use Types Packs/Day Years [...] PM CDT Legal Sex Female 4:13 AM DECISION SCIENCE ANALYST Gender Identity Female 03/02/2021 5:45 PM CDT Sexual Orientation Straight 02/28/2020 12 :51 AM CDT COVID-19 Exposure Response Date Recorded In the last month, have you been in contact with someone who was confirmed or suspected to have Coronavirus / COVID-19? No / Unsure 06/24/2020 3:01 PM DECISION SCIENCE ANALYST documented as of this encounter Miscellaneous Notes * Telephone Encounter - Kyara De La Fuente RN - 07/23/2020 1:41 PM CST [facility] levetiracetam. She stayed [...] her shewouldn't need medication her whole life. SION SCIENCE ANALYST documented in this encounter Plan of Treatment Upcoming Encounters Date Type Department Care Team (Late st Contact Info) Description 10/22/2024 11:00 AM CDT Office Visit [facility] [place] [address] [phone] Maru Man PA-C [address] [address] 10/23/2024 PRE VISIT [facility] Neurology [address] [phone] Johnny Penn MD [address] [place] [address] Previsit 10/23/2024 9:30 AM CDT Office Visit [facility] Neurology [address] [phone] [place] [address] [place], [place] [address] Johnny Penn MD [address] [place] [place] [id number] 10/24/2024 4:00 PM CDT [facility] [address] [place] [phone] Jelena David, [place] [address] [facility] [place] [address] 10/31/2024 9:15 AM CDT Virtual Visit [facility] Gastroenterology Clinic [address] 4th [place] [phone] Meredith Carrera PA-C [address] [place] [address] 12/20/2024 2:30 PM CDT Office Visit [facility] [address] [place] [address] Esha Grimm PA-C [address] [place] [address] documented as of this encounter Visit Diagnoses Not on filedocumented in this encounter Additional Health Concerns Infection Onset Date Last Indicated Resolved Time Rule Out COVID-19 07/30/2020 07/30/2020 07/30/2020 7:11 PM DECISION SCIENCE ANALYST Rule Out COVID-19 08/30/2020 08/30/2020 08/30/2020 5:05 PM DECISION SCIENCE ANALYST Rule Out COVID-19 09/24/2020 09/24/2020 09/24/2020 9:24 AM CDT Rule Out COVID-19 11/05/2020 11/05/2020 11/06/2020 1:09 PM CDT Rule Out COVID-19 05/11/2021 05/11/2021 05/13/2021 10:18 AM CDT Rule Out COVID-19 07/13/2021 07/13/2021 07/14/2021 3:04 PM DECISION SCIENCE ANALYST Rule Out COVID-19 07/18/2021 07/18/2021 07/20/2021 1:56 PM DECISION SCIENCE ANALYST COVID-19 07/18/2021 07/18/2021 08/08/2021 11:3 9 PM DECISION SCIENCE ANALYST Rule Out COVID-19 12/18/2021 12/18/2021 12/19/2021 11:34 AM CDT Rule Out COVID-19 02/24/2022 02/24/2022 02/25/2022 1:08 PM CDT Rule Out COVID-19 04/26/2022 04/26/2022 04/26/2022 6:47 AM CDT Rule Out COVID-19 05/17/2022 05/17/2022 05/17/2022 10:20 PM DECISION SCIENCE ANALYST Rule Out COVID-19 06/09/2022 06/09/2022 06/09/2022 9:35 AM DECISION SCIENCE ANALYST COVID-19 06/09/2022 06/09/2022 06/30/2022 11:4 1 PM DECISION SCIENCE ANALYST Rule Out COVID-19 11/10/2022 11/10/2022 11/11/2022 12:17 PM CDT Rule Out COVID-19 03/07/2023 03/07/2023 03/07/2023 1:20 PM CDT Rule Out COVID-19 12/26/2023 12/26/2023 12/26/2023 9:50 AM CDT Rule Out COVID-19 04/09/2024 04/09/2024 04/10/2024 6:48 PM CDT Rule Out COVID-19 10/04/2024 10/04/2024 10/05/2024 9:42 AM CDT Assessment Noted Time PHQ-9 Depression Total Score: 9 06/25/20 20 7:04 AM DECISION SCIENCE ANALYST documented as of this encounter Care Teams Foil Stamp Operator Relationship Specialty Start Date End Date Marija Edgar APRN HYDRAULIC STRAINER OPERATOR PCP - General Nurse Practitioner 04/30/20 04/14/23 Esha Grimm PA-C [address] [place] [phone] PCP - General Family Medicine 05/04/23 Lita Oseguera Personal Advocate & Liaison (PAL) 02/28/20 03/27/23 Chanelle Mccann APRN CNM [address] [place] [address] Assigned OBGYN Provider 05/02/2005/09 Kyara De La Fuente, VJ Specialty Veterans Service Officer Neurology 06/04/20 03/05/21 Marija Edgar APRN HYDRAULIC STRAINER OPERATOR Assigned PCP 06/08/20 04/29/23 Mynor Broussard MD [address] [address] Assigned Surgical Provider 06/01/20 11/28/21 Keisha Dotson MD 909 [place], [place] 555175 Assigned Neuroscience Provider 06/04/20 04/01/23 Mary Mejia Financial Resource Worker 08/07/20 08/21/20 Stacey Briones, [facility] Lead Veterans Service Officer Primary Care - CC 08/11/2012/30 Lesley Guillermo, [facility] Community Health Worker 08/11/2010/01 Mary Mejia Financial Resource Worker 09/02/20 10/06/20 Lita Oseguera Personal Advocate & Liaison (PAL) Family Medicine 09/10/20 09/21/20 Galo Burrell MD Assigned Heart and Vascular Provider 10/05/20 04/02/22 Cristina Wood Financial Resource Worker 10/07/20 10/14/20 Lesley Guillermo, [facility] Community Health Worker 10/23/2012/30 Meredith Bedoya Financial Resource Worker 10/23/20 11/23/20 Cristina Wood Financial Resource Worker 02/09/21 02/09/21 Diana Desir, [facility] [address] [place], [place] [phone] Pharmacist Pharmacist 04/17/21 Rain Galaviz PA-C [address] [place] [address] [place] [address] Physician Retort Kiln Burner Dermatology 04/28/21 Summer Lara MD [address] [place] [address] 100024 Assigned OBGYN Provider 05/10/2105/23 Summer Lara MD [address] [place] [address] 402324 Assigned OBGYN Provider 05/31/21 Summer Lara MD [address] [place] [address] Assigned OBGYN Provider 05/24/2105/30 Tavia Wyatt MD [address] [place] [address] Dermatology 07/14/21 Johnny Murillo MD [facility] [address] [place] [address] Assigned Musculoskeletal Provider 08/30/21 03/17/22 Erica Farrell APRN HYDRAULIC STRAINER OPERATOR [address] [facility] [address] [place] [address] Nurse Practitioner Cardiovascular Disease 09/09/21 Teresita Bean [facility] [address] [place] [phone] Pharmacist Pharmacist 09/24/21 09/29/21 Tavia Wyatt MD [address] [place] [address] Assigned Surgical Provider 11/29/21 05/07/22 Diana Desir, [facility] [address] [place] [address] Assigned MTM Pharmacist 01/02/22 Rich Barrett MD [address] [place] [address] Physician Ophthalmology 01/21/22 Neil Kent MD 500 [place], [place] [phone] Dermatology 02/24/22 Roney Story DPM [address] [facility] [address] [place], [place] [address] Assigned Musculoskeletal Provider 03/20/22 08/13/22 Erica Farrell APRN HYDRAULIC STRAINER OPERATOR [address] [place] [address] Assigned Heart and Vascular Provider 04/03/22 04/16/22 Diana Desir, [facility] [address] [place] [address] Assigned MTM Pharmacist 04/07/22 [place] [address] [place] [address] [place] [address] Assigned Surgical Provider 05/08/22 10/08/22 Galo Burrell MD Assigned Heart and Vascular Provider 04/17/22 06/11/22 Livan Sharif MD [address] [place], [place] [address] Cardiovascular Disease 05/14/22 Livan Sharif MD [address] [place] [address] Assigned Heart and Vascular Provider 06/12/22 07/23/22 Catherine Cm MD [address] [place] [address] Cardiovascular Disease 07/21/22 Valery Veronica, PA-C [address] [place] [address] 870765 Physician Retort Kiln Burner Dermatology 07/21/22 Catherine Cm MD [address] [place] [address] Assigned Heart and Vascular Provider 07/24/22 11/05/22 Johnny Murlilo MD [facility] [address] [address] Assigned Musculoskeletal Provider 08/14/22 10/08/22 Brea Quinn APRN HYDRAULIC STRAINER OPERATOR [address] [place] [address] 064965 Nurse Practitioner Dermatology 09/21/22 Brea Quinn APRN HYDRAULIC STRAINER OPERATOR [address] [place] [address] Assigned Surgical Provider 10/09/22 05/01/24 [place] [address] [place] [address] Assigned Musculoskeletal Provider 10/09/22 05/01/24 Livan Sharif MD [address] [place] 85[address]85 Assigned Heart and Vascular Provider 11/06/22 11/12/22 Catherine Cm MD [address] [place] [address] Assigned Heart and Vascular Provider 11/13/22 05/27/23 Sydnie Martinez, VJ Personal Advocate & Liaison (PAL) Family Medicine 03/28/23 07/31/23 Alfonso Renteria MD 5775 [facility] 200 [place] [address] Assigned Neuroscience Provider 04/02/23 09/29/24 Cheng Todd PA-C [address] [place] [address] Assigned PCP 04/30/23 07/15/23 Radha Lomeli APRN HYDRAULIC STRAINER OPERATOR [address] [place] [address] Assigned Heart and Vascular Provider 05/28/23 Jelena David OD [address] [facility] [place] [address] Ophthalmology 06/15/23 Pao Joseph, RN Personal Advocate & Liaison (PAL) Nurse 08/01/23 11/07/23 Esha Grimm PA-C [address] [place] [phone] Assigned PCP 07/16/23 Valery Veronica PA-C [address] [place] [address] 549365 Physician Retort Kiln Burner Dermatology 09/19/23 Rey Tay MD [address] [place] [address] 470975 MD Gastroenterology 09/20/23 Rocky Zepeda DO [address] [place] [address] 073765 Physician Gastroenterology 09/20/23 Philip Dumont MD 6 [place], [place] [address] Physician Ophthalmology 09/22/23 Meredith Carrera PA-C [address] [place] [address] 423905 Assigned Gastroenterology Provider 11/01/23 Neil Kent MD [address] [address] Dermatology 11/02/23 [place] [address] [place] [address] Neurological Surgery 12/26/23 Audrey Waite PA-C 500 [place] [address] Physician Retort Kiln Burner Dermatology 02/28/24 Valery Veronica PA-C [id number] [place] [address] Physician Retort Kiln Burner Dermatology 04/10/24 Herminia Hatch MD [address] [place] [address] Assigned Rheumatology Provider 07/02/24 Jelena David OD [address] [facility] [place] [address] Ophthalmology 08/30/24 [place] [address] [place] [address] Assigned Neuroscience Provider 09/30/24 Maru Man PA-C [address] [address] Physician Retort Kiln Burner Dermatology 10/03/24 documented as of this encounter
--- OUTSIDE RECORDS SUMMARY | 2024-10-18 19:24 | XMS_ITS | Encounter Summary ---
Author Organization [facility] Address [address] [place] [address] Care Team Providers Care Biomedical Engineering Director Name Role Phone Diana Desir [facility] Unavailable Rain Galaviz PA-C Unavailable Tavia Wyatt MD Unavailable [phone] Erica Farrell APRN MANAGER COMPLIANCE Unavailable Rich Barrett MD Unavailable [phone] Neil Kent MD Unavailable Diana Desir [facility] Unavailable Livan Sharif MD Unavailable Catherine Cm MD Unavailable + Valery Veronica PA-C Unavailable Brea Quinn CRIMINOLOGY PROFESSOR MANAGER COMPLIANCE Unavailable Brea Quinn CRIMINOLOGY PROFESSOR MANAGER COMPLIANCE Unavailable Jose Francisco Johnson MD Unavailable Alfonso Renteria MD Unavailable [phone] Esha Grimm PA-C Primary Care Provider Radha Lomeli APRN MANAGER COMPLIANCE Unavailable Jelena David OD Unavailable [phone] Pao Joseph RN Unavailable Unavailable AlfaJesusEsha M PA-C Unavailable [phone] Valery Veronica PA-C Unavailable [phone] Rey Tay MD Unavailable Rocky Zepeda DO Unavailable Philip Dumont MD Unavailable [phone] Meredith Carrera PA-C Unavailable [phone] Neil [place] MD Unavailable Juan Pablo Emmanuel MD Unavailable [phone] Audrey Waite PA-C Unavailable [phone] Valery Veronica PA-C Unavailable Herminia Hatch MD Unavailable Jelena David OD Unavailable [phone] Juan Pablo Emmanuel MD Unavailable [phone] Maru Man PA-C Unavailable [phone] Encounter Details Date Type Department Care Team (Late st Contact Info) Description 10/24/2023 [place] [facility] Gastroenterology Clinic [address] [phone] Kenneth Denson Social History Tobacco [...] you attend chur ch or christianity services? 1 to 4 times [...] Score 0 10/25/2023 [facility] - Occupational Stress Questionnaire Answer [...] exercise at this level? 30 min 03/10/2023 [place] Depression Scale Answer Date Recorded [place] Depression Score 5 01/14/2021 Last EPDS Self [...] PM CDT Legal Sex Female 4:13 AM COP BREAKER Gender Identity Female 03/02/2021 5:45 PM CDT Sexual Orientation Straight 02/28/2020 12 :51 AM CDT documented as of this encounter Plan of Treatment Upcoming Encounters Date Type Department Care Team (Late st Contact Info) Description 10/22/2024 11:00 AM CDT Office Visit [facility] [address] [phone] Maru Man PA-C [address] [address] 10/23/2024 PRE VISIT [facility] Neurology [facility] - [address], [address] [place] [address] Johnny Penn, MD [address] [place] [phone] Previsit 10/23/2024 9:30 AM CDT Office Visit [facility] Neurology [facility] [address] [facility], [address] [place] [phone] [place] [address] [place] [address] Johnny Penn MD [address] [place] [address] 10/24/2024 4:00 PM CDT Office Visit [facility] [address] [facility] [address] [place] [phone] Jelena David, [address] [facility] [place] [address] 10/31/2024 9:15 AM CDT Virtual Visit [facility] Gastroenterology Clinic [address] [phone] Meredith Carrera PA-C [address] [place] [address] 12/20/2024 2:30 PM CDT Office Visit [facility] [address] [place] [address] Esha Grimm PA-C [address] [place] [address] documented as of this encounter [...] Total Score: 4 06/20/20 23 8:40 AM COP BREAKER documented as of this encounter Care Teams Biomedical Engineering Director Relationship Specialty Start Date End Date Esha Grimm PA-C [address] [place] [address] PCP - General Family Medicine 05/04/23 Diana Desir, [facility] [address] [place] [address] Pharmacist Pharmacist 04/17/21 Rain Galaviz PA-C [address] [place] [address] [address] [facility] [place] [place] [address] Physician Hedis Registered Nurse Rn Dermatology 04/28/21 Tavia Wyatt MD [address] [place] [address] [address] [facility] [place] [address] Dermatology 07/14/21 Erica Farrell APRN MANAGER COMPLIANCE [address] [place] [address] Nurse Practitioner Cardiovascular Disease 09/09/21 Rich Barrett MD [address] [place] [address] Physician Ophthalmology 01/21/22 Neil Kent MD 500 [place] [address] Dermatology 02/24/22 [facility] 3033 [place] [address] Assigned [place] Pharmacist 04/07/22 Livan Sharif MD [address] 5974300 [place] [address] Cardiovascular Disease 05/14/22 Catherine Cm MD [address] [address] Cardiovascular Disease 07/21/22 Valery Veronica, PA-C 9 [place] [address] Physician Hedis Registered Nurse Rn Dermatology 07/21/22 Brea Quinn APRN MANAGER COMPLIANCE 500 [place] [address] Nurse Practitioner Dermatology 09/21/22 Brea Quinn APRN MANAGER COMPLIANCE [address] [place] [address] Assigned Surgical Provider 10/09/22 05/01/24 [place] [address] [address] Assigned Musculoskeletal Provider 10/09/22 05/01/24 Alfonso Renteria MD 57[address] [facility] 200 [place] [address] Assigned Neuroscience Provider 04/02/23 09/29/24 Radha Lomeli APRN MANAGER COMPLIANCE [address] [place] [address] Assigned Heart and Vascular Provider 05/28/23 Jelena David, SONJA [address] [facility] [place] [address] MD Ophthalmology 06/15/23 Pao Joseph, VJ Personal Advocate & Liaison (PAL) Nurse 08/01/23 11/07/23 Esha Grimm PA-C [address] [place] [phone] Assigned PCP 07/16/23 Valery Veronica PA-C [address] [place] [address] 635685 Physician Hedis Registered Nurse Rn Dermatology 09/19/23 Rey Tay MD [address] [place] [address] 361385 Gastroenterology 09/20/23 Rocky Zepeda DO [address] [place] [address] 929705 Physician Gastroenterology 09/20/23 Philip Dumont MD [address] [place] [address] 368905 Physician Ophthalmology 09/22/23 Meredith Carrera PA-C [address] [place] [address] 105865 Assigned Gastroenterology Provider 11/01/23 Neil Kent MD [address] [place] [address] MD Dermatology 11/02/23 [place] [address] [place] [address] Neurological Surgery 12/26/23 Audrey Waite PA-C [address] [place] [address] Physician Hedis Registered Nurse Rn Dermatology 02/28/24 Valery Veronica PA-C [address]153 [address] [place] [address] Physician Hedis Registered Nurse Rn Dermatology 04/10/24 Herminia Hatch MD [address] [place] [address] [id number] Assigned Rheumatology Provider 07/02/24 Jelena David OD [address] [place] [address] [place] [address] Ophthalmology 08/30/24 [place] [address] [place] [address] Assigned Neuroscience Provider 09/30/24 Maru Man PA-C [address] [place] [address] Physician Hedis Registered Nurse Rn Dermatology 10/03/24 documented as of this encounter
--- OUTSIDE RECORDS SUMMARY | 2024-10-18 19:24 | XMS_ITS | Encounter Summary ---
Author Organization [facility] Address [address] [place] [address] Care Team Providers Care Stringed Instrument Tuner Name Role Phone Lita Oseguera Unavailable Unavailable Marija Edgar APRN PULVERIZER Primary Care Provider + Chanelle Mccann APRN CNM Unavailab le Kyara De La Fuente RN Unavailable [phone] Marija Edgar APRN PULVERIZER Unavailable [phone] Mynor Broussard MD Unavailable [phone] Keisha Dotson MD Unavailable Mary Mejia Unavailable Unavailable Stacey Briones MAKE UP ARTIST Unavailable Lesley Guillermo CHW Unavailable Mary Mejia Unavailable Unavailable Lita Oseguera Unavailable Unavailable Galo Burrell MD Unavailable Unavailable Cristina Wood Unavailable Lesley Guillermo CHW Unavailable Meredith Bedoya Unavailable Unavailable Cristina Wood Unavailable Diana Desir [facility] Unavailable [place]uh[place], Rain Lena PA-C Unavailable Summer Lara MD Unavailable [phone] Summer Lara MD Unavailable [phone] Summer Lara MD Unavailable [phone] Tavia Wyatt MD Unavailable [phone] Johnny Murillo MD Unavailable [phone] Erica Farrell APRN PULVERIZER Unavailable VikasTeresita H Unavailable Tavia Wyatt MD Unavailable [phone] Diana Desir [facility] Unavailable [phone] Rich Barrett MD Unavailable [phone] Neil Kent MD Unavailable Roney Story [facility] Unavailable Erica Farrell APRN PULVERIZER Unavailable Diana Desir [facility] Unavailable [phone] Jelena David OD Unavailable Galo Burrell MD Unavailable Unavailable Livan Sharif MD Unavailable Livan Sharif MD Unavailable Catherine Cm MD Unavailable + Valery Veronica PA-C Unavailable [phone] Catherine Cm MD Unavailable + Johnny Murillo MD Unavailable +[phone] Brea Quinn APRN PULVERIZER Unavailable [phone] Brea Quinn INSURANCE INVESTIGATOR PULVERIZER Unavailable [phone] Jose Francisco Johnson MD Unavailable Livan Sharif MD Unavailable Catherine Cm MD Unavailable + Sydnie Martinez RN Unavailable Unavailable Alfonso Renteria MD Unavailable [phone] Esha Grimm PA-C Primary Care Provider Cheng Todd PA-C Unavailable Radha Lomeli APRN PULVERIZER Unavailable Jelena David OD Unavailable [phone] Pao Joseph RN Unavailable Unavailable Esha Grimm PA-C Unavailable [phone] Valery Veronica PA-C Unavailable Rey Tay [...] Care Team (Latest Contact Info) Description 07/29/2020 [facility] [address] [phone] Marija Edgar APRN PULVERIZER [address] [place] [phone] Palpitations (Primary Dx) Social History Tobacco Use [...] CDT Legal Sex Female 4:13 AM MANAGER STRATEGIC Gender Identity Female 03/02/2021 5:45 PM CDT Sexual Orientation Straight 02/28/2020 12 :51 AM CDT COVID-19 Exposure Response Date Recorded In the last month, have you been in contact with someone who was confirmed or suspected to have Coronavirus / COVID-19? No / Unsure 07/30/2020 4:53 PM MANAGER STRATEGIC documented as of this encounter Miscellaneous Notes * Telephone Encounter - Marija Edgar APRN CNP - 07/30/2020 10:21 AM MANAGER STRATEGIC Responded via [employer] Marija Edgar APRN PULVERIZER on 07/30/2020 at 10:28 AM GER STRATEGIC documented in this encounter Plan of Treatment Upcoming Encounters Date Type Department Care Team (Late st Contact Info) Description 10/22/2024 11:00 AM CDT Office Visit [address] [phone] Maru Man PA-C [address] [place] [address] 10/23/2024 PRE VISIT [facility] Neurology [facility] - [address], [address] [place] [address] Johnny Penn MD [address] [facility] [place] [address] Previsit 10/23/2024 9:30 AM CDT Office Visit [facility] Neurology [facility] [address] [facility], [address] [place] [phone] [place] [address] [place] [address] Johnny Penn MD [address] [facility] [place] [address] 10/24/2024 4:00 PM CDT Office Visit [facility] [address] [facility] [address] [place] [phone] Jelena David, [address] [facility] [address] 10/31/2024 9:15 AM CDT Virtual Visit [facility] [address] [phone] Meredith Carrera PA-C [address] [place] [address] 12/20/2024 2:30 PM CDT Office Visit [facility] [id number] [place] [phone] Esha Grimm PA-C [address] [place] [address] documented as of this encounter Visit Diagnoses Diagnosis Palpitations- Primary documented in this encounter Additional Health Concerns Infection Onset Date Last Indicated Resolved Time Rule Out COVID-19 07/30/2020 07/30/2020 07/30/2020 7:11 PM MANAGER STRATEGIC Rule Out COVID-19 08/30/2020 08/30/2020 08/30/2020 5:05 PM MANAGER STRATEGIC Rule Out COVID-19 09/24/2020 09/24/2020 09/24/2020 9:24 AM CDT Rule Out COVID-19 11/05/2020 11/05/2020 11/06/2020 1:09 PM CDT Rule Out COVID-19 05/11/2021 05/11/2021 05/13/2021 10:18 AM CDT Rule Out COVID-19 07/13/2021 07/13/2021 07/14/2021 3:04 PM MANAGER STRATEGIC Rule Out COVID-19 07/18/2021 07/18/2021 07/20/2021 1:56 PM MANAGER STRATEGIC COVID-19 07/18/2021 07/18/2021 08/08/2021 11:3 9 PM MANAGER STRATEGIC Rule Out COVID-19 12/18/2021 12/18/2021 12/19/2021 11:34 AM CDT Rule Out COVID-19 02/24/2022 02/24/2022 02/25/2022 1:08 PM CDT Rule Out COVID-19 04/26/2022 04/26/2022 04/26/2022 6:47 AM CDT Rule Out COVID-19 05/17/2022 05/17/2022 05/17/2022 10:20 PM MANAGER STRATEGIC Rule Out COVID-19 06/09/2022 06/09/2022 06/09/2022 9:35 AM MANAGER STRATEGIC COVID-19 06/09/2022 06/09/2022 06/30/2022 11:4 1 PM MANAGER STRATEGIC Rule Out COVID-19 11/10/2022 11/10/2022 11/11/2022 12:17 PM CDT Rule Out COVID-19 03/07/2023 03/07/2023 03/07/2023 1:20 PM CDT Rule Out COVID-19 12/26/2023 12/26/2023 12/26/2023 9:50 AM CDT Rule Out COVID-19 04/09/2024 04/09/2024 04/10/2024 6:48 PM CDT Rule Out COVID-19 10/04/2024 10/04/2024 10/05/2024 9:42 AM CDT Assessment Noted Time PHQ-9 Depression Total Score: 9 06/25/20 20 7:04 AM MANAGER STRATEGIC documented as of this encounter Care Teams Stringed Instrument Tuner Relationship Specialty Start Date End Date Marija Edgar APRN PULVERIZER PCP - General Nurse Practitioner 04/30/20 04/14/23 Esha Grimm PA-C [address] [place] [phone] PCP - General Family Medicine 05/04/23 Lita Oseguera Personal Advocate & Liaison (PAL) 02/28/20 03/27/23 [place] [address] [place] [address] [address] [place] [address] Assigned OBGYN Provider 05/02/2005/09 Kyara De La Fuente, RN Specialty Director Market Research Neurology 06/04/20 03/05/21 Marija Edgar APRN PULVERIZER Assigned PCP 06/08/20 04/29/23 Mynor Broussard MD [address] [facility] [address] [place], [place] [address] Assigned Surgical Provider 06/01/20 11/28/21 Keisha Dotson MD [address] [place], [place] 6[address] Assigned Neuroscience Provider 06/04/20 04/01/23 aMry Mejia Financial Resource Worker 08/07/20 08/21/20 Stacey Briones, [facility] Lead Director Market Research Primary Care - CC 08/11/2012/30 Lesley Guillermo, [facility] Community Health Worker 08/11/2010/01 Nikiatimothy Mary Financial Resource Worker 09/02/20 10/06/20 Lita Oseguera Personal Advocate & Liaison (PAL) Family Medicine 09/10/20 09/21/20 Galo Burrell MD Assigned Heart and Vascular Provider 10/05/20 04/02/22 Cristina Wood Financial Resource Worker 10/07/20 10/14/20 Lesley Guillermo, [facility] Community Health Worker 10/23/2012/30 Meredith Bedoya Financial Resource Worker 10/23/20 11/23/20 Cristina Wood Financial Resource Worker 02/09/21 02/09/21 Diana Desir, [facility] [address] [place], [place] [phone] Pharmacist Pharmacist 04/17/21 Rain Galaviz PA-C [address] [place] [address] [address] [place] [place], [place] [phone] Physician Mri Specialist Dermatology 04/28/21 Summer Lara MD [address] [place] [address] Assigned OBGYN Provider 05/10/2105/23 Summer Lara MD [address] [place] [address] Assigned OBGYN Provider 05/31/21 2 Summer Lara MD [address] [place] [address] Assigned OBGYN Provider 05/24/2105/30 Tavia Wyatt MD [address] [place] [address] Dermatology 07/14/21 Johnny Murillo MD [address] [place] [address] Assigned Musculoskeletal Provider 08/30/21 03/17/22 Erica Farrell APRN PULVERIZER [address] [facility] [address] [place] [address] Nurse Practitioner Cardiovascular Disease 09/09/21 Teresita Bean, [facility] [address] [place] [place], [place] [phone] Pharmacist Pharmacist 09/24/21 09/29/21 Tavia Wyatt MD [address] [place] [address] Assigned Surgical Provider 11/29/21 05/07/22 [facility] [address] [place] [address] Assigned MTM Pharmacist 01/02/22 Rich Barrett MD [address] [place] [address] Physician Ophthalmology 01/21/22 Neil Kent MD 500 [place] [address] Dermatology 02/24/22 Roney Story DPM [address] [facility] [address] [place], [place] [phone] Assigned Musculoskeletal Provider 03/20/22 08/13/22 Erica Farrell APRN PULVERIZER [address] [place] [address] Assigned Heart and Vascular Provider 04/03/22 04/16/22 [facility] [address] [place] [address] Assigned MTM Pharmacist 04/07/22 Jelena David OD [address] [facility] [address] Assigned Surgical Provider 05/08/22 10/08/22 Galo Burrell MD Assigned Heart and Vascular Provider 04/17/22 06/11/22 Livan Sharif MD [address] [place] [address] Cardiovascular Disease 05/14/22 Lvian Sharif MD [address] [place] [address] Assigned Heart and Vascular Provider 06/12/22 07/23/22 Catherine Cm MD [address] [place] [address] Cardiovascular Disease 07/21/22 Valery Veronica PA-C [address] [place] [address] Physician Mri Specialist Dermatology 07/21/22 Catherine Cm MD [address] [place] [address] Assigned Heart and Vascular Provider 07/24/22 11/05/22 Johnny Murillo MD [facility] [address] [address] Assigned Musculoskeletal Provider 08/14/22 10/08/22 Brea Quinn APRN PULVERIZER [address] [place] [address]765 Nurse Practitioner Dermatology 09/21/22 Brea Quinn APRN PULVERIZER [address] [place] [address] [place] [address] Assigned Surgical Provider 10/09/22 05/01/24 [place] [address] [place] [place], [place] [address] [address] Assigned Musculoskeletal Provider 10/09/22 05/01/24 Livan Sharif MD [address] [place] [address] Assigned Heart and Vascular Provider 11/06/22 11/12/22 Catherine Cm MD [address] [place] [address] Assigned Heart and Vascular Provider 11/13/22 05/27/23 Sydnie Martinez RN Personal Advocate & Liaison (PAL) Family Medicine 03/28/23 07/31/23 Alfonso Renteria MD [address] [facility] [address] [place] [address] Assigned Neuroscience Provider 04/02/23 09/29/24 Cheng Todd PA-C [address] [place] [address] [phone] Assigned PCP 04/30/23 07/15/23 Radha Lomeli APRN PULVERIZER [address] [place], [place] [address] Assigned Heart and Vascular Provider 05/28/23 Jelena David OD [address] [facility] [address] Ophthalmology 06/15/23 Pao Joseph RN Personal Advocate & Liaison (PAL) Nurse 08/01/23 11/07/23 Esha Grimm PA-C [address] [place] [phone] Assigned PCP 07/16/23 Valery Veronica PA-C [address] [place], [place] 497025 Physician Mri Specialist Dermatology 09/19/23 Rey Tay MD [address] [place] [address]955 MD Gastroenterology 09/20/23 Rocky Zepeda DO [address] [place] [address] 787205 Physician Gastroenterology 09/20/23 Philip Dumont MD [address] [place] [address] 088025 Physician Ophthalmology 09/22/23 Meredith Carrera PA-C [address] [place] [address] [phone] Assigned Gastroenterology Provider 11/01/23 Neil Kent MD [address] [address] Dermatology 11/02/23 [place] [address] [place] [address] [address] Neurological Surgery 12/26/23 Audrey Waite PA-C [address] [place] [address] Physician Mri Specialist Dermatology 02/28/24 Valery Veronica PA-C 373133 [place] [address] Physician Mri Specialist Dermatology 04/10/24 Herminia Hatch MD [address] [place] [address] Assigned Rheumatology Provider 07/02/24 [place]ena David OD [address] [facility] [address] Ophthalmology 08/30/24 [place] [address] [place] [address] Assigned Neuroscience Provider 09/30/24 Maru Man PA-C [address] [place] [address] Physician Mri Specialist Dermatology 10/03/24 documented as of this encounter
--- OUTSIDE RECORDS SUMMARY | 2024-10-18 19:24 | XMS_ITS | Encounter Summary ---
Author Organization [facility] Address [address] [place] [address] Care Team Providers Care Parimutuel Ticket Checker Name Role Phone Lita Oseguera Unavailable Unavailable Rakesh Cid PA-C Unavailable [phone] Marija Edgar APRN NEUROLOGY HOSPITALIST Primary Care Provider + Chanelle Mccann APRN CN Unavailab le Lesley Guillermo CHW Unavailable [phone] Kyara De La Fuente RN Unavailable [phone] Marija Edgar APRN [facility] Unavailable Mynor Broussard MD Unavailable [phone] Keisha Dotson MD Unavailable Mary Mejia Unavailable Unavailable Stacey Briones PREPARATION DEPARTMENT SUPERVISOR Unavailable Lesley Guillermo CHW Unavailable [phone] Mary Mejia Unavailable Unavailable Lita Oseguera Unavailable Unavailable Galo Burrell MD Unavailable Unavailable Cristina Wood Unavailable Lesley Guillermo CHW Unavailable [phone] Meredith Bedoya Unavailable Unavailable Cristina Wood Unavailable Diana Desir [facility] Unavailable [phone] Rain Galaviz PA-C Unavailable Summer Lara MD Unavailable [phone] Summer Lara MD Unavailable [phone] Summer Lara MD Unavailable [phone] Tavia Wyatt MD Unavailable [phone] Johnny Murillo MD Unavailable [phone] Erica Farrell APRN NEUROLOGY HOSPITALIST Unavailable Teresita Bean [facility] Unavailable Tavia Wyatt MD Unavailable [phone] Diana Desir [facility] Unavailable [phone] Rich Barrett MD Unavailable Neil Kent MD Unavailable Roney StoryM Unavailable Erica Farrell APRN NEUROLOGY HOSPITALIST Unavailable + Diana Desir [facility] Unavailable [phone] Jelena David OD Unavailable Galo Burrell MD Unavailable Unavailable Livan Sharif MD Unavailable Livan Sharif MD Unavailable + Catherine Cm MD Unavailable + Valery Veronica PA-C Unavailable [phone] Catherine Cm MD Unavailable + Johnny Murillo MD Unavailable [phone] Bera uQinn APRN NEUROLOGY HOSPITALIST Unavailable [phone] [place], Brea P AGRICULTURE MECHANIC NEUROLOGY HOSPITALIST Unavailable [phone] Jose Francisco Johnson MD Unavailable Livan Sharif MD Unavailable Catherine Cm MD Unavailable + Sydnie Martinez RN Unavailable Unavailable Alfonso Renteria MD Unavailable [phone] Esha Grimm PA-C Primary Care Provider Cheng Todd PA-C Unavailable Armani Radha Stovall AGRICULTURE MECHANIC NEUROLOGY HOSPITALIST Unavailable Jelena David OD Unavailable Pao Joseph RN Unavailable Unavailable Esha Grimm PA-C Unavailable [phone] Valery Veronica PA-C Unavailable Rey Tay MD Unavailable Rocky Zepeda DO Unavailable Philip Dumont MD Unavailable [phone] Meredith Carrera PA-C Unavailable Neil Kent MD Unavailable Juan Pablo Emmanuel MD Unavailable Audrey Waite PA-C Unavailable Valery Veronica PA-C Unavailable Herminia Hatch MD Unavailable Jelena David OD Unavailable Juan Pablo Emmanuel MD Unavailable [phone] Maru Man PA-C Unavailable Encounter Details Date Type Department Care Team (Late st Contact Info) Description 05/23/2020 [facility] [address] [place] [phone] Marija Edgar, AGRICULTURE MECHANIC NEUROLOGY HOSPITALIST [address] [place] [phone] Social History Tobacco Use Types [...] PM CDT Legal Sex Female 4:13 AM AUDITOR Gender Identity Female 03/02/2021 5:45 PM CDT Sexual Orientation Straight 02/28/2020 12 :51 AM CDT COVID-19 Exposure Response Date Recorded In the last month, have you been in contact with someone who was confirmed or suspected to have Coronavirus / COVID-19? No / Unsure 05/12/2020 9:03 AM AUDITOR documented as of this encounter Plan of Treatment Upcoming Encounters Date Type Department Care Team (Late st Contact Info) Description 10/22/2024 11:00 AM CDT Office Visit [address] [phone] Maru Man PA-C [address] [place] [address] 10/23/2024 PRE VISIT [facility] - [address], [address] [phone] Johnny Penn MD [address] [place] [address] Previsit 10/23/2024 9:30 AM CDT Office Visit [facility] - [address], [address] [place] [phone] [place] [address] [place] [address] Johnny Penn MD [address] [place] [place] [address] 10/24/2024 4:00 PM CDT Office Visit [facility] [address] [place] [phone] Jelena David, [address] [facility] [place] [address] 10/31/2024 9:15 AM CDT Virtual Visit [facility] [address] [phone] Meredith Carrera PA-C [address] [place] [address] 099075 12/20/2024 2:30 PM CDT Office Visit [facility] [id number] [place] [phone] Esha Grimm PA-C [id number] [place] [phone] documented as of this encounter Visit Diagnoses Not on filedocumented in this encounter Additional Health Concerns Infection Onset Date Last Indicated Resolved Time Rule Out COVID-19 07/30/2020 07/30/2020 07/30/2020 7:11 PM AUDITOR Rule Out COVID-19 08/30/2020 08/30/2020 08/30/2020 5:05 PM AUDITOR Rule Out COVID-19 09/24/2020 09/24/2020 09/24/2020 9:24 AM CDT Rule Out COVID-19 11/05/2020 11/05/2020 11/06/2020 1:09 PM CDT Rule Out COVID-19 05/11/2021 05/11/2021 05/13/2021 10:18 AM CDT Rule Out COVID-19 07/13/2021 07/13/2021 07/14/2021 3:04 PM AUDITOR Rule Out COVID-19 07/18/2021 07/18/2021 07/20/2021 1:56 PM AUDITOR COVID-19 07/18/2021 07/18/2021 08/08/2021 11:3 9 PM AUDITOR Rule Out COVID-19 12/18/2021 12/18/2021 12/19/2021 11:34 AM CDT Rule Out COVID-19 02/24/2022 02/24/2022 02/25/2022 1:08 PM CDT Rule Out COVID-19 04/26/2022 04/26/2022 04/26/2022 6:47 AM CDT Rule Out COVID-19 05/17/2022 05/17/2022 05/17/2022 10:20 PM AUDITOR Rule Out COVID-19 06/09/2022 06/09/2022 06/09/2022 9:35 AM AUDITOR COVID-19 06/09/2022 06/09/2022 06/30/2022 11:4 1 PM AUDITOR Rule Out COVID-19 11/10/2022 11/10/2022 11/11/2022 12:17 PM CDT Rule Out COVID-19 03/07/2023 03/07/2023 03/07/2023 1:20 PM CDT Rule Out COVID-19 12/26/2023 12/26/2023 12/26/2023 9:50 AM CDT Rule Out COVID-19 04/09/2024 04/09/2024 04/10/2024 6:48 PM CDT Rule Out COVID-19 10/04/2024 10/04/2024 10/05/2024 9:42 AM CDT Assessment Noted Time PHQ-9 Depression Total Score: 6 08/28/19 7:05 AM AUDITOR documented as of this encounter Care Teams Parimutuel Ticket Checker Relationship Specialty Start Date End Date Marija Edgar APRN NEUROLOGY HOSPITALIST [address] [place] [address] PCP - General Nurse Practitioner 04/30/20 04/14/23 Esha Grimm PA-C [address] [place] [phone] PCP - General Family Medicine 05/04/23 Lita Oseguera Personal Advocate & Liaison (PAL) 02/28/20 03/27/23 Rakesh Cid PA-C [address] [place] [address] Assigned PCP 03/02/20 06/07/20 [place] [address] [facility] [address] [place] [address] Assigned OBGYN Provider 05/02/2005/09 Lesley Guillermo CHW Community Health Worker 05/30/2005/12 Kyara De La Fuente, RN Specialty Metal Can Inspector Neurology 06/04/20 03/05/21 Marija Edgar APRN NEUROLOGY HOSPITALIST [address] [place] [address] Assigned PCP 06/08/20 04/29/23 Mynor Broussard MD [address] [facility] 500 [place] [address] Assigned Surgical Provider 06/01/20 11/28/21 Keisha Dotson MD 909 [place], [place] 912135 Assigned Neuroscience Provider 06/04/20 04/01/23 Nikiatimothy Amry Financial Resource Worker 08/07/20 08/21/20 Stacey Briones, [facility] Lead Metal Can Inspector Primary Care - CC 08/11/2012/30 Lesley Guillermo, [facility] Community Health Worker 08/11/2010/01 Mary Mejia Financial Resource Worker 09/02/20 10/06/20 Lita Oseguera Personal Advocate & Liaison (PAL) Family Medicine 09/10/20 09/21/20 Galo Burrell MD Assigned Heart and Vascular Provider 10/05/20 04/02/22 Cristina Wood Financial Resource Worker 10/07/20 10/14/20 Lesley Guillermo, [facility] Community Health Worker 10/23/2012/30 Meredith Bedoya Financial Resource Worker 10/23/20 11/23/20 Cristina Wood Financial Resource Worker 02/09/21 02/09/21 Diana Desir, [facility] [place] [address] Pharmacist Pharmacist 04/17/21 Rain Galaviz PA-C [address] [place] [address] [place] [address] Physician Estate Agent Dermatology 04/28/21 Summer Lara MD [address] [place] [address] Assigned OBGYN Provider 05/10/2105/23 Summer Lara MD [address] [place] [address] Assigned OBGYN Provider 05/31/21 2 Summer Lara MD [address] [place] [address] Assigned OBGYN Provider 05/24/2105/30 Tavia Wyatt MD [address] [place] [address] Dermatology 07/14/21 Johnny Murillo MD [facility] [facility] [address] [place] [address] Assigned Musculoskeletal Provider 08/30/21 03/17/22 Erica Farrell APRN [facility] [address] [facility] [address] [place] [address] Nurse Practitioner Cardiovascular Disease 09/09/21 Teresita Bean [facility] [address] [place] [address] Pharmacist Pharmacist 09/24/21 09/29/21 Tavia Wyatt MD [address] [place] [address] Assigned Surgical Provider 11/29/21 05/07/22 Diana Desir, [facility] [address] [place] [address] Assigned MTM Pharmacist 01/02/22 Rich Barrett MD [address] [place] [address] Physician Ophthalmology 01/21/22 Neil Kent MD [address] [place] [address] Dermatology 02/24/22 Roney Story DPM [address] [facility] [address] [place] [address] Assigned Musculoskeletal Provider 03/20/22 08/13/22 Erica Farrell APRN NEUROLOGY HOSPITALIST [address]00 [place] [address] Assigned Heart and Vascular Provider 04/03/22 04/16/22 Diana Desir, [facility] [address] [place] [address] Assigned MTM Pharmacist 04/07/22 Jelena David OD [address] [facility] [place] [address] Assigned Surgical Provider 05/08/22 10/08/22 Galo Burrell MD Assigned Heart and Vascular Provider 04/17/22 06/11/22 Livan Sharif MD [address] [facility] [address] [place], [place] 363455 Cardiovascular Disease 05/14/22 Livan Sharif MD [address] [facility] [address] [place] [address] Assigned Heart and Vascular Provider 06/12/22 07/23/22 Catherine Cm MD [address] [facility]00 [place] 437535 Cardiovascular Disease 07/21/22 Valery Veronica, PAUcheC [address] [place] [address] 610245 Physician Estate Agent Dermatology 07/21/22 Catherine Cm MD [address] [place] [id number] [place] 376335 Assigned Heart and Vascular Provider 07/24/22 11/05/22 Johnny Murillo MD [address] [place] [address] [id number] Assigned Musculoskeletal Provider 08/14/22 10/08/22 Brea Quinn APRN NEUROLOGY HOSPITALIST [address] [place] [address] [phone] Nurse Practitioner Dermatology 09/21/22 Brea Quinn APRN NEUROLOGY HOSPITALIST [address] [place] [address] [place] 310392 Assigned Surgical Provider 10/09/22 05/01/24 [place] [address] [place] [address] [place] [address] [phone] Assigned Musculoskeletal Provider 10/09/22 05/01/24 Livan Sharif MD [address] [facility] [address] [place] [address]695 Assigned Heart and Vascular Provider 11/06/22 11/12/22 Catherine Cm MD [address] [place] [address] [place] [address] Assigned Heart and Vascular Provider 11/13/22 05/27/23 Sydnie Martinez RN Personal Advocate & Liaison (PAL) Family Medicine 03/28/23 07/31/23 Alfonso Renteria MD 57[address] [facility] 200 [place] [address] Assigned Neuroscience Provider 04/02/23 09/29/24 Cheng Todd PA-C [address] [place] [address] [phone] Assigned PCP 04/30/23 07/15/23 Radha Lomeli, [place] NEUROLOGY HOSPITALIST [address] [place] [address] Assigned Heart and Vascular Provider 05/28/23 Jelena David OD [address] [facility] [place] [address] Ophthalmology 06/15/23 Pao Joseph, VJ Personal Advocate & Liaison (PAL) Nurse 08/01/23 11/07/23 Esha Grimm PAUcheC [address] [place] [address] Assigned PCP 07/16/23 Valery Veronica PA-C [address] [place] [address] Physician Estate Agent Dermatology 09/19/23 Rey Tay MD [address] [place] [address] MD Gastroenterology 09/20/23 Rocky Zepeda DO [address] [place] [address] 590265 Physician Gastroenterology 09/20/23 Philip Dumont MD [address] [place] [address] Physician Ophthalmology 09/22/23 Meredith Carrera PA-C [address] [place] [address] 326675 Assigned Gastroenterology Provider 11/01/23 Neil Kent MD [address] [address] Dermatology 11/02/23 [place] [address] [place] [address] Neurological Surgery 12/26/23 Audrey Waite PA-C [address] [place] [address] Physician Estate Agent Dermatology 02/28/24 Valery Veronica PA-C [address] [place] [address] Physician Estate Agent Dermatology 04/10/24 Herminia Hatch MD [address] [place] [address] Assigned Rheumatology Provider 07/02/24 Jelena David OD [address] [facility] [place] [address] Ophthalmology 08/30/24 [place] [address] [place] [address] Assigned Neuroscience Provider 09/30/24 Maru Man PA-C [address] [place] [address] Physician Estate Agent Dermatology 10/03/24 documented as of this encounter
--- OUTSIDE RECORDS SUMMARY | 2024-10-18 19:25 | XMS_ITS | Encounter Summary ---
Author Organization [facility] Address [address] [place] [address] Care Team Providers Care Catechist Name Role Phone Rakesh Cid PA-C Primary Care Provider Lita Oseguera Unavailable Unavailable Rakesh Cid PA-C Unavailable [phone] Lita Oseguera Unavailable Unavailable Marija Edgar APRN NOVELTY PRINTING MACHINE OPERATOR Primary Care Provider + Chanelle Mccann APRN CNM Unavailab le Lesley Guillermo Unavailable [phone] Kyara De La Fuente RN Unavailable [phone] Marija Edgar APRN NOVELTY PRINTING MACHINE OPERATOR Unavailable [phone] Mynor Broussard MD Unavailable [phone] Keisha Dotson MD Unavailable Mary Mejia Unavailable Unavailable Stacey Briones CABLE MECHANIC Unavailable Lesley Guillermo Unavailable [phone] Mary Mejia Unavailable Unavailable Lita Oseguera Unavailable Unavailable Galo Burrell MD Unavailable Unavailable Cristina Wood Unavailable Lesley Guillermo Unavailable [phone] Meredith Bedoya Unavailable Unavailable Cristina Wood Unavailable Diana Desir [facility] Unavailable [phone] Rain Galaviz PA-C Unavailable Summer Lara MD Unavailable [phone] Summer Lara MD Unavailable [phone] Summer Lara MD Unavailable [phone] Tavia Wyatt MD Unavailable [phone] Johnny Murillo MD Unavailable [phone] Erica Farrell APRN NOVELTY PRINTING MACHINE OPERATOR Unavailable Teresita Bean [facility] Unavailable Tavia Wyatt MD Unavailable [phone] Diana Desir [facility] Unavailable [phone] Rich Barrett MD Unavailable Neil Kent MD Unavailable Roney Story DPM Unavailable Erica Farrell APRN NOVELTY PRINTING MACHINE OPERATOR Unavailable Diana Desir [facility] Unavailable [phone] Jelena David OD Unavailable Galo Burrell MD Unavailable Unavailable Livan Sharif MD Unavailable Livan Sharif MD Unavailable + Catherine Cm MD Unavailable + Valery Veronica PA-C Unavailable [phone] Catherine Cm MD Unavailable + Johnny Murillo MD Unavailable [phone] Brea Quinn POWDER MILL OPERATOR NOVELTY PRINTING MACHINE OPERATOR Unavailable [phone] Brea Quinn POWDER MILL OPERATOR NOVELTY PRINTING MACHINE OPERATOR Unavailable [phone] Jose Francisco Johnson MD Unavailable Livan Sharif MD Unavailable Catherine Cm MD Unavailable + Sydnie Martinez RN Unavailable Unavailable Alfonso Renteria MD Unavailable Esha Grimm PA-C Primary Care Provider Cheng Todd PA-C Unavailable [phone] Radha Lomeli POWDER MILL OPERATOR NOVELTY PRINTING MACHINE OPERATOR Unavailable Jelena David OD Unavailable [phone] Pao Joseph RN Unavailable Unavailable Esha Grimm PA-C Unavailable [phone] Valery Veronica PA-C Unavailable Rey Tay MD Unavailable Rocky Zepeda DO Unavailable Philip Dumont MD Unavailable [phone] Meredith Carrera PA-C Unavailable Neil Kent MD Unavailable Juan Pablo Emmanuel MD Unavailable [phone] Audrey Waite PA-C Unavailable [phone] Valery Veronica PA-C Unavailable Herminia Hatch MD Unavailable Jelena David OD Unavailable Juan Pablo Emmanuel MD Unavailable Maru Man PA-C Unavailable Encounter Details Date Type Department Care Team (Late st Contact Info) Description 04/28/2020 MyC Medical Advice [facility] [address] [place] [phone] Rakesh Cid PA-C [address] [address] Social History Tobacco Use Types Packs/Day Years [...] PM CDT Legal Sex Female 4:13 AM AMBULATORY CARE COORDINATOR Gender Identity Female 03/02/2021 5:45 [...] Department Care Team (Late Contact Info) Description 10/22/2024 11:00 AM CDT Office Visit [address] [phone] Maru Man PA-C [address] [place] [address] 10/23/2024 PRE VISIT [facility]rology [facility] - [address], [address] [place] [phone] Johnny Penn MD [address] [facility] [address] [place] [address] Previsit 10/23/2024 9:30 AM CDT Office Visit [facility] Neurology [facility] [address] [facility], [address] [place] [phone] [place] [address] [place] [address] Johnny Penn MD [address] [facility] [place] [address] 10/24/2024 4:00 PM CDT Office Visit [facility] [address] [place] [phone] Jelena David, [address] [facility] [place] [address] 10/31/2024 9:15 AM CDT Virtual Visit [facility] G[facility] [address] [place] [phone] Meredith Carrera PA-C [address] [place] [address] 12/20/2024 2:30 PM CDT Office Visit [facility] [address] [place] [phone] Esha Grimm PA-C [address] [place] [phone] documented as of this encounter Visit Diagnoses Not on filedocumented in this encounter Additional Health Concerns Infection Onset Date Last Indicated Resolved Time Rule Out COVID-19 07/30/2020 07/30/2020 07/30/2020 7:11 PM AMBULATORY CARE COORDINATOR Rule Out COVID-19 08/30/2020 08/30/2020 08/30/2020 5:05 PM AMBULATORY CARE COORDINATOR Rule Out COVID-19 09/24/2020 09/24/2020 09/24/2020 9:24 AM CDT Rule Out COVID-19 11/05/2020 11/05/2020 11/06/2020 1:09 PM CDT Rule Out COVID-19 05/11/2021 05/11/2021 05/13/2021 10:18 AM CDT Rule Out COVID-19 07/13/2021 07/13/2021 07/14/2021 3:04 PM AMBULATORY CARE COORDINATOR Rule Out COVID-19 07/18/2021 07/18/2021 07/20/2021 1:56 PM AMBULATORY CARE COORDINATOR COVID-19 07/18/2021 07/18/2021 08/08/2021 11:3 9 PM AMBULATORY CARE COORDINATOR Rule Out COVID-19 12/18/2021 12/18/2021 12/19/2021 11:34 AM CDT Rule Out COVID-19 02/24/2022 02/24/2022 02/25/2022 1:08 PM CDT Rule Out COVID-19 04/26/2022 04/26/2022 04/26/2022 6:47 AM CDT Rule Out COVID-19 05/17/2022 05/17/2022 05/17/2022 10:20 PM AMBULATORY CARE COORDINATOR Rule Out COVID-19 06/09/2022 06/09/2022 06/09/2022 9:35 AM AMBULATORY CARE COORDINATOR COVID-19 06/09/2022 06/09/2022 06/30/2022 11:4 1 PM AMBULATORY CARE COORDINATOR Rule Out COVID-19 11/10/2022 11/10/2022 [...] documented as of this encounter Care Teams Catechist Relationship Specialty Start Date End Date Rakesh Cid PA-C PCP - General Physician Capacity Management Specialist - Medical 05/14/19 04/29/20 Marija Edgar APRN NOVELTY PRINTING MACHINE OPERATOR [address] [place] [address] PCP - General Nurse Practitioner 04/30/20 04/14/23 Esha Grimm PA-C [address] [place] [phone] PCP - General Family Medicine 05/04/23 Lita Oseguera Personal Advocate & Liaison (PAL) 02/28/20 03/27/23 Rakesh Cid PA-C [address] [place] [address] Assigned PCP 03/02/20 06/07/20 Lita Oseguera Personal Advocate & Liaison (PAL) 04/07/20 04/29/20 [place] [address] [address] Assigned OBGYN Provider 05/02/2005/09 Lesley Guillermo CHW Community Health Worker 05/30/2005/12 Kyara De La Fuente, RN Specialty Skip Tracer Neurology 06/04/20 03/05/21 Marija Edgar APRN NOVELTY PRINTING MACHINE OPERATOR [address] [place] [address] Assigned PCP 06/08/20 04/29/23 Mynor Broussard MD [address] [place] [address] Assigned Surgical Provider 06/01/20 11/28/21 Keisha Dotson MD [address] [place], [place] [address] Assigned Neuroscience Provider 06/04/20 04/01/23 Mary Mejia Financial Resource Worker 08/07/20 08/21/20 Stacey Briones, [facility] Lead Skip Tracer Primary Care - CC 08/11/2012/30 Lesley Guillermo, [facility] Community Health Worker 08/11/2010/01 Mary Mejia [...] 02/09/21 Diana Desir, [facility] [address] [place], [place] [phone] Pharmacist Pharmacist 04/17/21 Rain Galaviz PA-C [address] [place] [address] [place] [address] Physician Capacity Management Specialist Dermatology 04/28/21 Summer Lara MD [address] [place] [address] Assigned OBGYN Provider 05/10/2105/23 Summer Lara MD [address] [place] [address] Assigned OBGYN Provider 05/31/21 Summer Lara MD [address] [place] [address] Assigned OBGYN Provider 05/24/2105/30 Tavia Wyatt MD [address] [place] [address] Dermatology 07/14/21 Johnny Murillo MD [facility] [address] [place] [address] Assigned Musculoskeletal Provider 08/30/21 03/17/22 Erica Farrell APRN NOVELTY PRINTING MACHINE OPERATOR [address] [facility] [address] [place] [address] Nurse Practitioner Cardiovascular Disease 09/09/21 Teresita Bean, [facility] [address] [place] [address] Pharmacist Pharmacist 09/24/21 09/29/21 Tavia Wyatt MD [address] [place] [address] Assigned Surgical Provider 11/29/21 05/07/22 Diana Desir, [facility] [address] [place] [address] Assigned MTM Pharmacist 01/02/22 Rich Barrett MD [address] [place] [address] Physician Ophthalmology 01/21/22 Neil Kent MD [address] [place], [place] 450655 Dermatology 02/24/22 Roney Story DPM [address] [facility] [address] [place] [address] Assigned Musculoskeletal Provider 03/20/22 08/13/22 Erica Farrell APRN NOVELTY PRINTING MACHINE OPERATOR [address] [place] [address] Assigned Heart and Vascular Provider 04/03/22 04/16/22 Diana Desir, [facility] [place] [address] Assigned MTM Pharmacist 04/07/22 Jelena David OD [address] [facility] [place] [address] Assigned Surgical Provider 05/08/22 10/08/22 Galo Burrell MD Assigned Heart and Vascular Provider 04/17/22 06/11/22 Livan Sharif MD [address] [place] [address] Cardiovascular Disease 05/14/22 Livan Sharif MD [address] [place] [address] Assigned Heart and Vascular Provider 06/12/22 07/23/22 Catherine Cm MD [address] [place], [place] 6309[address] Cardiovascular Disease 07/21/22 Valery Veronica, PA-C [address] [place] [address] 329165 Physician Capacity Management Specialist Dermatology 07/21/22 Catherine Cm MD [address] [place], [place] 0[address]45 Assigned Heart and Vascular Provider 07/24/22 11/05/22 Johnny Murillo MD [facility] [address] 074374 Assigned Musculoskeletal Provider 08/14/22 10/08/22 Brea Quinn APRN NOVELTY PRINTING MACHINE OPERATOR [address] [place] [address] [phone] Nurse Practitioner Dermatology 09/21/22 Brea Quinn APRN NOVELTY PRINTING MACHINE OPERATOR [address] [place] [address] Assigned Surgical Provider 10/09/22 05/01/24 [place] [address] [facility] [address] [place] [address] Assigned Musculoskeletal Provider 10/09/22 05/01/24 Livan Sharif MD [address] [place] [address] Assigned Heart and Vascular Provider 11/06/22 11/12/22 Catherine Cm MD [address] [place] [address] Assigned Heart and Vascular Provider 11/13/22 05/27/23 Sydnie Martinez, RN Personal Advocate & Liaison (PAL) Family Medicine 03/28/23 07/31/23 Alfonso Renteria MD [address] [facility] [address] [place] [address] Assigned Neuroscience Provider 04/02/23 09/29/24 Cheng Todd PA-C [address] [place] [address] Assigned PCP 04/30/23 07/15/23 Radha Lomeli APRN NOVELTY PRINTING MACHINE OPERATOR [address] [place] [address] Assigned Heart and Vascular Provider 05/28/23 Jelena David OD [address] [facility] [place] [address] Ophthalmology 06/15/23 Pao Joseph, RN Personal Advocate & Liaison (PAL) Nurse 08/01/23 11/07/23 Esha Grimm PA-C [address] [place] [phone] Assigned PCP 07/16/23 Valery Veronica PA-C [address] [place] [address] 344015 Physician Capacity Management Specialist Dermatology 09/19/23 Rey Tay MD [address] [place] [address] [phone] Gastroenterology 09/20/23 Rocky Zepeda DO [address] [place] [address] 553875 Physician Gastroenterology 09/20/23 Philip Dumont MD [address] [place] [address] 623855 Physician Ophthalmology 09/22/23 Meredith Carrera PA-C [address] [place] [address] [phone] Assigned Gastroenterology Provider 11/01/23 Neil Kent MD [address] [address] Dermatology 11/02/23 [place] [address] [place] [address] Neurological Surgery 12/26/23 Audrey Waite PA-C [address] [place] [address] Physician Capacity Management Specialist Dermatology 02/28/24 Valery Veronica PA-C 401142 [address] [place] [address] Physician Capacity Management Specialist Dermatology 04/10/24 Herminia Hatch MD [address] [place] [address] Assigned Rheumatology Provider 07/02/24 Jelena David OD [address] [place] [address] [place] [address] Ophthalmology 08/30/24 [place] [address] [place] [address] Assigned Neuroscience Provider 09/30/24 Maru Man PA-C [address] [address] Physician Capacity Management Specialist Dermatology 10/03/24 documented as of this encounter
--- OUTSIDE RECORDS SUMMARY | 2024-10-18 19:25 | XMS_ITS | Encounter Summary ---
Author Organization [facility] Address [address] [place] [address] Care Team Providers Care Grinder Set Up Operator Thread Name Role Phone Rakesh Cid PA-C Primary Care Provider Lita Oseguera Unavailable Unavailable Rakesh Cid PA-C Unavailable [phone] Lita Oseguera Unavailable Unavailable Marija Edgar APRN TRANSITION MANAGER Primary Care Provider + Chanelle Mccann APRN CNM Unavailab le Lesley Guillermo Unavailable [phone] Kyara De La Fuente RN Unavailable Marija Edgar APRN TRANSITION MANAGER Unavailable Mynor Broussard MD Unavailable Keisha Dotson MD Unavailable Mary Mejia Unavailable Unavailable Stacey Briones SURGICAL SCRUB TECHNOLOGIST Unavailable Lesley Guillermo Unavailable [phone] Mary Mejia Unavailable Unavailable Lita Oseguera Unavailable Unavailable Galo Burrell MD Unavailable Unavailable Cristina Wood Unavailable Lesley Guillermo Unavailable [phone] Meredith Bedoya Unavailable Unavailable Cristina Wood Unavailable Diana Desir [facility] Unavailable [phone] Rain Galaviz PA-C Unavailable Summer Lara MD Unavailable [phone] Summer Lara MD Unavailable [phone] Summer Lara MD Unavailable [phone] Tavia Wyatt MD Unavailable [phone] Johnny Murillo MD Unavailable [phone] Erica Farrell APRN TRANSITION MANAGER Unavailable Teresita Bean [facility] Unavailable Tavia Wyatt MD Unavailable [phone] Diana Desir [facility] Unavailable [phone] Rich Barrett MD Unavailable Neil Kent MD Unavailable Roney Story DPM Unavailable Erica Farrell APRN TRANSITION MANAGER Unavailable Diana Desir [facility] Unavailable [phone] Jelena David OD Unavailable Galo Burrell MD Unavailable Unavailable Livan Sharif MD Unavailable Livan Sharif MD Unavailable + Catherine Cm MD Unavailable + Valery Veronica PA-C Unavailable [phone] Catherine Cm MD Unavailable + Johnny Murillo MD Unavailable [phone] Brea Quinn [employer]QUAD LE[employer] TRANSITION MANAGER Unavailable [phone] Brea Quinn [employer]QUAD LE[employer]ER TRANSITION MANAGER Unavailable [phone] Jose Francisco Johnson MD Unavailable Livan Sharif MD Unavailable Catherine Cm MD Unavailable + Sydnie Martinez RN Unavailable Unavailable Alfonso Renteria MD Unavailable Esha Grimm PA-C Primary Care Provider Cheng Todd PA-C Unavailable [phone] Radha Lomeli SQUAD LE[employer]ER TRANSITION MANAGER Unavailable Jelena David OD Unavailable [phone] Pao Joseph RN Unavailable Unavailable Esha Grimm PA-C Unavailable Valery Veronica PA-C Unavailable Rey Tay MD Unavailable Rocky Zepeda DO Unavailable Philip Dumont MD Unavailable [phone] Meredith Carrera PA-C Unavailable [phone] Neil Kent MD Unavailable Juan Pablo Emmanuel MD Unavailable Audrey Waite PA-C Unavailable [phone] Valery Veronica PA-C Unavailable Herminia Hatch MD Unavailable Jelena David OD Unavailable Juan Pablo Emmanuel MD Unavailable Maru Man PA-C Unavailable Encounter Details Date Type Department Care Team (Late st Contact Info) Description 04/25/2020 MyC Medical Advice [facility] [address] [place] [phone] Rakesh Cid PA-C [address] [address] Social History Tobacco Use Types Packs/Day Years [...] PM CDT Legal Sex Female 4:13 AM LINECASTING MACHINE KEYBOARD OPERATOR Gender Identity Female 03/02/2021 5:45 PM [...] 10/22/2024 11:00 AM CDT Office Visit [address] [phone] Maru Man PA-C [address] [place] [address] 10/23/2024 PRE VISIT [facility] - [address], [address] [place] [phone] Johnny Penn MD [address] [facility] [place] [address] Previsit 10/23/2024 9:30 AM CDT Office Visit [facility] [address] [facility], [address] [place] [phone] [place] [address] [place] [address] Johnny Penn MD [address] [facility] [place] [address] 10/24/2024 4:00 PM CDT Office Visit [facility] [address] [facility] [address] [place] [phone] Jelena David, [address] [facility] [place] [address] 10/31/2024 9:15 AM CDT Virtual Visit [facility] [address] [place] [phone] Meredith Carrera PA-C [address] [place] [address] 12/20/2024 2:30 PM CDT Office Visit [facility] [address] [place] [phone] Esha Grimm PA-C [address] [place] [phone] documented as of this encounter Visit Diagnoses Not on filedocumented in this encounter Additional Health Concerns Infection Onset Date Last Indicated Resolved Time Rule Out COVID-19 07/30/2020 07/30/2020 07/30/2020 7:11 PM LINECASTING MACHINE KEYBOARD OPERATOR Rule Out COVID-19 08/30/2020 08/30/2020 08/30/2020 5:05 PM LINECASTING MACHINE KEYBOARD OPERATOR Rule Out COVID-19 09/24/2020 09/24/2020 09/24/2020 9:24 AM CDT Rule Out COVID-19 11/05/2020 11/05/2020 11/06/2020 1:09 PM CDT Rule Out COVID-19 05/11/2021 05/11/2021 05/13/2021 10:18 AM CDT Rule Out COVID-19 07/13/2021 07/13/2021 07/14/2021 3:04 PM LINECASTING MACHINE KEYBOARD OPERATOR Rule Out COVID-19 07/18/2021 07/18/2021 07/20/2021 1:56 PM LINECASTING MACHINE KEYBOARD OPERATOR COVID-19 07/18/2021 07/18/2021 08/08/2021 11:3 9 PM LINECASTING MACHINE KEYBOARD OPERATOR Rule Out COVID-19 12/18/2021 12/18/2021 12/19/2021 11:34 AM CDT Rule Out COVID-19 02/24/2022 02/24/2022 02/25/2022 1:08 PM CDT Rule Out COVID-19 04/26/2022 04/26/2022 04/26/2022 6:47 AM CDT Rule Out COVID-19 05/17/2022 05/17/2022 05/17/2022 10:20 PM LINECASTING MACHINE KEYBOARD OPERATOR Rule Out COVID-19 06/09/2022 06/09/2022 06/09/2022 9:35 AM LINECASTING MACHINE KEYBOARD OPERATOR COVID-19 06/09/2022 06/09/2022 06/30/2022 11:4 1 PM LINECASTING MACHINE KEYBOARD OPERATOR Rule Out COVID-19 11/10/2022 11/10/2022 11/11/2022 [...] encounter Care Teams Grinder Set Up Operator Thread Relationship Specialty Start Date End Date Rakesh Cid PA-C PCP - General Physician Audit Reviewer - Medical 05/14/19 04/29/20 Marija Edgar APRN TRANSITION MANAGER [address] [place] [address] PCP - General Nurse Practitioner 04/30/20 04/14/23 Esha Grimm PA-C [address] [place] [phone] PCP - General Family Medicine 05/04/23 Lita Oseguera Personal Advocate & Liaison (PAL) 02/28/20 03/27/23 Rakesh Cid PA-C [address] [place] [address] Assigned PCP 03/02/20 06/07/20 Lita Oseguera Personal Advocate & Liaison (PAL) 04/07/20 04/29/20 [place] [address] [address] Assigned OBGYN Provider 05/02/2005/09 Lesley Guillermo CHW Community Health Worker 05/30/2005/12 Kyara De La Fuente, RN Specialty Kindergarten Assistant Neurology 06/04/20 03/05/21 Marija Edgar APRN TRANSITION MANAGER [address] [place] [address] Assigned PCP 06/08/20 04/29/23 Mynor Broussard MD [address] [place] [address] Assigned Surgical Provider 06/01/20 11/28/21 Keisha Dotson MD [address] [place], [place] 366885 Assigned Neuroscience Provider 06/04/20 04/01/23 Mary Mejia Financial Resource Worker 08/07/20 08/21/20 Stacey Briones, [facility] Lead Kindergarten Assistant Primary Care - CC 08/11/2012/30 Lesley Guillermo, [facility] Community Health Worker 08/11/2010/01 Mary Mejia Financial Resource Worker 09/02/20 10/06/20 Lita Oseguera Personal Advocate & Liaison (PAL) Family Medicine 09/10/20 09/21/20 Galo Burrell MD Assigned Heart and Vascular Provider 10/05/20 04/02/22 Cristina Wood Financial Resource Worker 10/07/20 10/14/20 Lesley Guillermo, [facility] Community Health Worker 10/23/2012/30 Meredith Bedoya Financial Resource Worker 10/23/20 11/23/20 Cristina Wood Financial Resource Worker 02/09/21 02/09/21 Diana Desir, [facility] [address] [place], [place] [phone] Pharmacist Pharmacist 04/17/21 Rain Galaviz PA-C [address] [place] [address] [place] [address] Physician Audit Reviewer Dermatology 04/28/21 Summer Lara MD [address] [place] [address] Assigned OBGYN Provider 05/10/2105/23 Summer Lara MD [address] [place] [address] Assigned OBGYN Provider 05/31/21 Summer Lara MD [address] [place] [address] Assigned OBGYN Provider 05/24/2105/30 Tavia Wyatt MD [address] [place] [address] Dermatology 07/14/21 Johnny Murillo MD [facility] [address] [place] [address] Assigned Musculoskeletal Provider 08/30/21 03/17/22 Erica Farrell APRN TRANSITION MANAGER [address] [facility] [address] [place] [address] Nurse Practitioner Cardiovascular Disease 09/09/21 Teresita Bean, [facility] [address] [place] [address] Pharmacist Pharmacist 09/24/21 09/29/21 Tavia Wyatt MD [address] [place] [address] Assigned Surgical Provider 11/29/21 05/07/22 Diana Desir, [facility] [address] [place] [address] Assigned MTM Pharmacist 01/02/22 Rich Barrett MD [address] [place] [address] Physician Ophthalmology 01/21/22 Neil Kent MD [address] [place], [place] [phone] Dermatology 02/24/22 Roney Story DPM [address] [facility] [address] [place] [address] Assigned Musculoskeletal Provider 03/20/22 08/13/22 Erica Farrell APRN TRANSITION MANAGER [address] [place] [address] Assigned Heart and Vascular Provider 04/03/22 04/16/22 Diana Desir, [facility] [place] [address] Assigned MTM Pharmacist 04/07/22 Jelena David OD [address] [facility] [place] [address] Assigned Surgical Provider 05/08/22 10/08/22 Galo Burrell MD Assigned Heart and Vascular Provider 04/17/22 06/11/22 Livan Sharif MD [address] [place] [address] Cardiovascular Disease 05/14/22 Livan Sharif MD [address] [place] [address] Assigned Heart and Vascular Provider 06/12/22 07/23/22 Catherine Cm MD [address] [place], [place] 169805 Cardiovascular Disease 07/21/22 Valery Veronica, PA-C [address] [place] [address] [phone] Physician Audit Reviewer Dermatology 07/21/22 Catherine Cm MD [address] [place], [place] 435335 Assigned Heart and Vascular Provider 07/24/22 11/05/22 Johnny Murillo MD [facility] [address] 128244 Assigned Musculoskeletal Provider 08/14/22 10/08/22 Brea Quinn APRN TRANSITION MANAGER [address] [place] [address] [phone] Nurse Practitioner Dermatology 09/21/22 Brea Quinn APRN TRANSITION MANAGER [address] [place] [address] Assigned Surgical Provider 10/09/22 05/01/24 [place] [address] [facility] [address] [place] [address] Assigned Musculoskeletal Provider 10/09/22 05/01/24 Livan Sharif MD [address] [place] [address] Assigned Heart and Vascular Provider 11/06/22 11/12/22 Catherine Cm MD [address] [place] [address] Assigned Heart and Vascular Provider 11/13/22 05/27/23 Sydnie Martinez, RN Personal Advocate & Liaison (PAL) Family Medicine 03/28/23 07/31/23 Alfonso Renteria MD [address] [facility] [address] [place] [address] Assigned Neuroscience Provider 04/02/23 09/29/24 Cheng Todd PA-C [address] [place] [address] Assigned PCP 04/30/23 07/15/23 Radha Lomeli APRN TRANSITION MANAGER [address] [place] [address] Assigned Heart and Vascular Provider 05/28/23 Jelena David OD [address] [facility] [address] Ophthalmology 06/15/23 Pao Joseph, RN Personal Advocate & Liaison (PAL) Nurse 08/01/23 11/07/23 Esha Grimm PA-C [address] [place] [phone] Assigned PCP 07/16/23 Valery Veronica PA-C [address] [place] [address] 712615 Physician Audit Reviewer Dermatology 09/19/23 Rey Tay MD [address] [place] [address] [phone] Gastroenterology 09/20/23 Rocky Zepeda DO [address] [place] [address] 301125 Physician Gastroenterology 09/20/23 Philip Dumont MD [address] [place] [address] [phone] Physician Ophthalmology 09/22/23 Meredith Carrera PA-C [address] [place] [address] [phone] Assigned Gastroenterology Provider 11/01/23 Neil Kent MD [address] [address] Dermatology 11/02/23 [place] [address] [place] [address] Neurological Surgery 12/26/23 Audrey Waite PA-C [address] [place] [address] Physician Audit Reviewer Dermatology 02/28/24 Valery Veronica PA-C 985307 [address] [place] [address] Physician Audit Reviewer Dermatology 04/10/24 Herminia Hatch MD [address] [place] [address] Assigned Rheumatology Provider 07/02/24 Jelena David OD [address] [place] [address] [place] [address] Ophthalmology 08/30/24 [place] [address] [place] [address] Assigned Neuroscience Provider 09/30/24 Maru Man PA-C [address] [address] Physician Audit Reviewer Dermatology 10/03/24 documented as of this encounter
--- OUTSIDE RECORDS SUMMARY | 2024-10-18 19:25 | XMS_ITS | Encounter Summary ---
Author Organization [facility] Address [address] [place] [address] Care Team Providers Care Materials Management Clerk Name Role Phone Rakesh Cid PA-C Unavailable [phone] Rakesh Cid PA-C Primary Care Provider [phone] Lita Oseguera Unavailable Unavailable Rakesh Cid PA-C Unavailable [phone] Isaura Lamar RN Unavailable Unavailable Lita Oseguera Unavailable Unavailable Marija Edgar APRN ROLLER VARNISHER Primary Care Provider + Chanelle Mccann APRN CN Unavailab le Lesley Guillermo CHKamryn Unavailable [phone] Kyara De La Fuente RN Unavailable [phone] Marija Edgar APRN ROLLER VARNISHER Unavailable [phone] Mynor Broussard MD Unavailable [phone] Keisha Dotson MD Unavailable [phone] Mary Mejia Unavailable Unavailable Stacey Briones IMPORT/EXPORT FREIGHT FORWARDER Unavailable [phone] Lesley Guillermo CHW Unavailable [phone] Mary Mejia Unavailable Unavailable Lita Oseguera Unavailable Unavailable Galo Burrell MD Unavailable Unavailable Cristina Wood Unavailable Eagle Lesley C [facility] Unavailable Meredith Bedoya Unavailable Unavailable Cristina Wood Unavailable Thang Diana [place] [facility] Unavailable [phone] Rain Galaviz-C Unavailable Summer Lara MD Unavailable [phone] Summer Lara MD Unavailable [phone] Summer Lara MD Unavailable [phone] Tavia Wyatt MD Unavailable [phone] Johnny Murillo MD Unavailable Erica Farrell APRN ROLLER VARNISHER Unavailable Teresita Bean [facility] Unavailable Tavia Wyatt MD Unavailable [phone] Diana Desir [facility] Unavailable [phone] Rich Barrett MD Unavailable [phone] Neil Kent MD Unavailable Roney Story DPM Unavailable Erica Farrell PLASTIC SURGERY ASSISTANT ROLLER VARNISHER Unavailable Diana Desir [facility] Unavailable [phone] Jelena David OD Unavailable [phone] Galo Burrell MD Unavailable Unavailable Livan Sharif MD Unavailable + Livan Sharif MD Unavailable + Catherine Cm MD Unavailable + Valery Veronica-C Unavailable Catherine Cm MD Unavailable + Johnny Murillo MD Unavailable [phone] Brea Quinn PLASTIC SURGERY ASSISTANT ROLLER VARNISHER Unavailable [phone] Brea Quinn PLASTIC SURGERY ASSISTANT ROLLER VARNISHER Unavailable [phone] Jose Francisco Johnson MD Unavailable Livan Sharif MD Unavailable Catherine Cm MD Unavailable + Sydnie Martinez RN Unavailable Unavailable Alfonso Renteria MD Unavailable Esha Grimm PA-C Primary Care Provider Cheng Todd PA-C Unavailable Radha Lomeli PLASTIC SURGERY ASSISTANT ROLLER VARNISHER Unavailable Jelena David OD Unavailable [phone] Pao Joseph RN Unavailable Unavailable Esha Grimm PA-C Unavailable [phone] Valery Veronica PA-C Unavailable Rey Tay MD Unavailable Rocky Zepeda DO Unavailable Philip Dumont MD Unavailable [phone] Meredith Carrera PA-C Unavailable [phone] Neil Kent MD Unavailable Juan Pablo Emmanuel MD Unavailable Audrey Waite PA-C Unavailable Valery Veronica PA-C Unavailable Herminia Hatch MD Unavailable Jelena David OD Unavailable Juan Pablo Emmanuel MD Unavailable Maru Man PA-C Unavailable Reason for Visit * Reason Onset Date Comments Appointment 02/13/2020 Anxiety Encounter Details Date Type Department Care Team (Late st Contact Info) Description 02/13/2020 [facility] [address] [phone] Rakesh Cid PA-C [address] [place] [address] Appointment (Anxiety) Social History Tobacco Use Types [...] CDT Legal Sex Female 4:13 AM HAND MOLDER MEAT Gender Identity Female 03/02/2021 5:45 PM CDT Sexual Orientation Straight 02/28/2020 12 :51 AM CDT documented as of this encounter Miscellaneous Notes * Telephone Encounter - Agatha Forrester RN - 02/15/2020 2:28 PM CDT [employer] message sent to patient to schedule a [...] Description 10/22/2024 11:00 AM CDT Office Visit [facility] [address] [phone] Maru Man PA-C [address] [address] 10/23/2024 PRE VISIT [facility] [address], [address] [place] [phone] Johnny Penn MD [address] [facility] [place] [address] Previsit 10/23/2024 9:30 AM CDT Office Visit [facility] [address], [address] [place] [phone] [place] [address] [address] [place] [address] Johnny Penn MD [address] [place] [id number] 10/24/2024 4:00 PM CD[facility] [address] [place] [phone] Jelena David, [address] [facility] [place] [address] 10/31/2024 9:15 AM CDT Virtual Visit [facility] [address] [place] [phone] Meredith Carrera PA-C [address] [place] [address] 12/20/2024 2:30 PM CDT Office Visit [facility] [address] [place] [address] Esha Grimm PA-C [address] [place] [address] documented as of this encounter Visit Diagnoses Not on filedocumented in this encounter Additional Health Concerns Infection Onset Date Last Indicated Resolved Time Rule Out COVID-19 07/30/2020 07/30/2020 07/30/2020 7:11 PM HAND MOLDER MEAT Rule Out COVID-19 08/30/2020 08/30/2020 08/30/2020 5:05 PM HAND MOLDER MEAT Rule Out COVID-19 09/24/2020 09/24/2020 09/24/2020 9:24 AM CDT Rule Out COVID-19 11/05/2020 11/05/2020 11/06/2020 1:09 PM CDT Rule Out COVID-19 05/11/2021 05/11/2021 05/13/2021 10:18 AM CDT Rule Out COVID-19 07/13/2021 07/13/2021 07/14/2021 3:04 PM HAND MOLDER MEAT Rule Out COVID-19 07/18/2021 07/18/2021 07/20/2021 1:56 PM HAND MOLDER MEAT COVID-19 07/18/2021 07/18/2021 08/08/2021 11:3 9 PM HAND MOLDER MEAT Rule Out COVID-19 12/18/2021 12/18/2021 12/19/2021 11:34 AM CDT Rule Out COVID-19 02/24/2022 02/24/2022 02/25/2022 1:08 PM CDT Rule Out COVID-19 04/26/2022 04/26/202204/2604/26/2022 6:47 AM CDT Rule Out COVID-19 05/17/2022 05/17/2022 05/17/2022 10:20 PM HAND MOLDER MEAT Rule Out COVID-19 06/09/2022 06/09/2022 06/09/2022 9:35 AM HAND MOLDER MEAT COVID-19 06/09/2022 06/09/2022 06/30/2022 11:4 1 PM HAND MOLDER MEAT Rule Out COVID-19 11/10/2022 11/10/2022 11/11/2022 12:17 PM CDT Rule Out COVID-19 03/07/2023 03/07/2023 03/07/2023 1:20 PM CDT Rule Out COVID-19 12/26/2023 12/26/2023 12/26/2023 9:50 AM CDT Rule Out COVID-19 04/09/2024 04/09/2024 04/10/2024 6:48 PM CDT Rule Out COVID-19 10/04/2024 10/04/2024 10/05/2024 9:42 AM CDT Assessment Noted Time PHQ-9 Depression Total Score: 1 09/11/19 20 1:42 PM HAND MOLDER MEAT documented as of this encounter Care Teams Materials Management Clerk Relationship Specialty Start Date End Date Rakesh Cid PA-C [address] [place] [address] PCP - General Physician International Accountant - Medical 05/14/19 04/29/20 Marija Edgar APRN CNP PCP - General Nurse Practitioner 04/30/20 04/14/23 Esha Grimm [place]-C [address] [place] [address] PCP - General Family Medicine 05/04/23 Rakesh Cid PA-C [address] [place] [address] Assigned PCP 05/06/19 03/01/20 Lita Oseguera Personal Advocate & Liaison (PAL) 02/28/20 03/27/23 Rakesh Cid PA-C [address] [place] [address] Assigned PCP 03/02/20 06/07/20 Isaura Lamar, RN Personal Advocate & Liaison (PAL) Family Practice 04/03/20 04/06/20 Lita Oseguera Personal Advocate & Liaison (PAL) 04/07/20 04/29/20 Chanelle Mccann APRN CNM [address] [facility] [address] [place], [place] [address] Assigned OBGYN Provider 05/02/2005/09 Lesley Guillermo, W Community Health Worker 05/30/2005/12 Kyara De La Fuente, RN Specialty Microbiological Laboratory Technician Neurology 06/04/20 03/05/21 Marija Edgar APRN ROLLER VARNISHER Assigned PCP 06/08/20 04/29/23 Mynor Broussard MD [address] [facility] [address] [place] [address] Assigned Surgical Provider 06/01/20 11/28/21 Keisha Dotson MD [address] [place] [address] Assigned Neuroscience Provider 06/04/20 04/01/23 Chico Mejiara Financial Resource Worker 08/07/20 08/21/20 Stacey Briones, [facility] Lead Microbiological Laboratory Technician Primary Care - CC 08/11/2012/30 Lesley Guillermo, [facility] Community Health Worker 08/11/2010/01 JackieAditiMary Financial Resource [...] [facility] [address] [place], [place] [address] Pharmacist Pharmacist 04/17/21 Rain Galaviz PA-C [address] [place] [address] [address] [place], [place] [phone] Physician International Accountant Dermatology 04/28/21 Summer Lara MD [address] [place], [place] [phone] Assigned OBGYN Provider 05/10/2105/23 Summer Lara MD [address] [place] [address] Assigned OBGYN Provider 05/31/21 2 Summer Lara MD [address] [place] [address] Assigned OBGYN Provider 05/24/2105/30 Tavia Wyatt MD [address] [place] [address] Dermatology 07/14/21 Johnny Murillo MD [address] [place] [address] Assigned Musculoskeletal Provider 08/30/21 03/17/22 Erica Farrell APRN ROLLER VARNISHER [address] [facility] [address] [place] [address] Nurse Practitioner Cardiovascular Disease 09/09/21 Teresita Bean [facility] [address] [place] [address] Pharmacist Pharmacist 09/24/21 09/29/21 Tavia Wyatt MD [address] [place] [address] Assigned Surgical Provider 11/29/21 05/07/22 Diana Desir, [facility] [address] [place] [address] Assigned MTM Pharmacist 01/02/22 Rich Barrett MD [address] [place] [address] Physician Ophthalmology 01/21/22 Neil Kent MD [address] [place] [address] Dermatology 02/24/22 Roney Story DPM [address] [facility] [address] [place] [address] Assigned Musculoskeletal Provider 03/20/22 08/13/22 Erica Farrell APRN ROLLER VARNISHER [address] [place] [address] Assigned Heart and Vascular Provider 04/03/22 04/16/22 [facility] [address] [place] [address] Assigned MTM Pharmacist 04/07/22 Jelena David OD [address] [facility] [place] [address] Assigned Surgical Provider 05/08/22 10/08/22 Galo Burrell MD Assigned Heart and Vascular Provider 04/17/22 06/11/22 Livan Sharif MD [address] [place] [address] Cardiovascular Disease 05/14/22 Livan Sharif MD [address] [place] [address] Assigned Heart and Vascular Provider 06/12/22 07/23/22 Catherine Cm MD [address] [facility] [place] [address] Cardiovascular Disease 07/21/22 Valery Veronica, [place] [address] [place] [address] Physician International Accountant Dermatology 07/21/22 Catherine Cm MD [address] [facility] [place] [address] Assigned Heart and Vascular Provider 07/24/22 11/05/22 Johnny Murillo MD [address] [place] [address] Assigned Musculoskeletal Provider 08/14/22 10/08/22 Brea Quinn APRN ROLLER VARNISHER [address] [place] [address] Nurse Practitioner Dermatology 09/21/22 Brea Quinn APRN ROLLER VARNISHER [address] [place] [address] [facility] [place] [address] Assigned Surgical Provider 10/09/22 05/01/24 [place] [address] [place] [address] [place] [address] Assigned Musculoskeletal Provider 10/09/22 05/01/24 Livan Sharif MD [address] [place] [address] Assigned Heart and Vascular Provider 11/06/22 11/12/22 Catherine Cm MD [address] [facility] [address] [place] [address] Assigned Heart and Vascular Provider 11/13/22 05/27/23 Sydnie Martinez RN Personal Advocate & Liaison (PAL) Family Medicine 03/28/23 07/31/23 Alfonso Renteria MD [address] [facility] [address] [place], [place] [address] Assigned Neuroscience Provider 04/02/23 09/29/24 Cheng Todd PA-C [address] [place] [address] [id number] Assigned PCP 04/30/23 07/15/23 Radha Lomeli APRN ROLLER VARNISHER [address] [facility] [address] [place], [place] [address] Assigned Heart and Vascular Provider 05/28/23 Jelena David OD [address] [facility] [place] [address] Ophthalmology 06/15/23 Pao Joseph, VJ Personal Advocate & Liaison (PAL) Nurse 08/01/23 11/07/23 Esha Grimm PA-C [address] [place] [phone] Assigned PCP 07/16/23 Valery Veronica PA-C [address] [place] [address] Physician International Accountant Dermatology 09/19/23 Rey Tay MD [address] [place] [address] MD Gastroenterology 09/20/23 Rocky Zepeda DO [address] [place] [address]44795 Physician Gastroenterology 09/20/23 Philip Dumont MD [address] [place] [address]3025 Physician Ophthalmology 09/22/23 Meredith Carrera PA-C [address] [place] [address] Assigned Gastroenterology Provider 11/01/23 Neil Kent MD [address] [address] Dermatology 11/02/23 [place] [address] [facility] [place] [address] Neurological Surgery 12/26/23 Audrey Waite PA-C [address] [place] [address] Physician International Accountant Dermatology 02/28/24 Valery Veronica PA-C 393613 [place], [place] [address] Physician International Accountant Dermatology 04/10/24 Herminia Hatch MD [facility] [place] [address] Assigned Rheumatology Provider 07/02/24 Jelena David OD [address] [facility] [place] [address] Ophthalmology 08/30/24 [place] [address] [place] [address] Assigned Neuroscience Provider 09/30/24 Maru Man PA-C [address] [address] Physician International Accountant Dermatology 10/03/24 documented as of this encounter
--- OUTSIDE RECORDS SUMMARY | 2024-10-18 19:25 | XMS_ITS | Clinical Summary ---
Author Organization [facility] Address [facility] [place] [address] Care Team Providers Care Survey Instrument Operator Name Role Phone Pcp, No Primary Care Provider Unavailabl e Clinic, No Pcp Or Unavailable Unavailable Allergies Active Allergy Reactions Criticality Noted Date Comments Vancomycin Other - Describe In Comment Field Medications biotin-silicon pxzn-R-khopweoz 3,000 mcg -100 mg-50 mg TbER Take [...] Apply topically to affected area(s). 8 Active ketoconazole 2% shampoo (NIZORAL) 2 % [...] breath),Mild intermittent reactive airway disease without complication (HC) Inhale 1-2 Puffs by mouth every 4 hours if needed for Shortness Of Breath or Wheezing. 1 Each 4 Active Active Problems No known active problems Encounters Date Type Department Care Team Description 08/29/2024 Orders Only [facility] [address] [address] Ernestina Toribio MD 1 scan: (1-Ord) 08/28/2024 08/28/2024 3:35 PM DB2 DEVELOPER Office Visit [facility] [address] [address] Ernestina Toribio MD Lightheaded (Started today ) 08/28/2024 Orders Only [facility] [address] [place] [id number] Ernestina Toribio MD Lab 08/28/2024 Travel from [...] on file Legal Sex Female 2:29 PM DB2 DEVELOPER Gender Identity Not on file Sexual Orientation Not on file Obstetrics History Last Filed Vital Signs Vital Sign Reading Time Taken Comments Blood Pressure 111/58 08/28/2024 3:42 PM DB2 DEVELOPER Pulse 72 08/28/2024 3:42 PM DB2 DEVELOPER Temperature 36.4 C (97.5 F) 08/28/2024 3:42 PM DB2 DEVELOPER Respiratory Rate 15 08/28/2024 3:42 PM DB2 DEVELOPER Oxygen Saturation 99% 08/28/2024 3:42 PM DB2 DEVELOPER Inhaled Oxygen Concentration - - Weight 90.7 kg (200 lb) 08/28/2024 3:42 PM DB2 DEVELOPER Height 166.5 cm (5' 5.55) 08/31/2018 11:[address] Body Mass Index - - Plan of Treatment Health Maintenance Due Date Last Done Comments Tdap 2011 Depression screening for age 12+ 2012 HPV series for age 9-26 (1 - 3-dose series) 2015 BMI (ht and wt on same day) for age 18+ 08/31/2019 08/31/2018 Tetanus booster 2020 Pap test for age 21-65 2021 COVID-19 vaccine series (2023- season) 2024 Influenza Vaccine (Season Ended) 2025 Chlamydia for age 16-24 08/28/2025 08/28/2024 HIV for age 15-65 Completed 08/28/2024 Hepatitis C screening for ag e 18-79 Completed 08/28/2024 Pneumococcal series for age 6-49 Aged Out No longer eligible based on patient's age to complete this topic Procedures Procedure Name Priority Date/Time Associated Diagnosis Comments 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) Routine 08/28/2024 5:57 PM DB2 DEVELOPER Sore throat Routine screening for STI (sexually transmitted infection) TREPONEMA PALLIDUM Routine 08/28/2024 5: 15 PM DB2 DEVELOPER Routine screening for STI (sexually transmitted infection) HSV TYPE SPEC IGG GENESIS Routine 08/28/2024 5:13 PM DB2 DEVELOPER Sore throat ANTI HIV 1/2 Routine 08/28/2024 4:58 PM DB2 DEVELOPER Routine screening for STI (sexually transmitted infection) ANTI HCV Routine 08/28/2024 4:58 PM DB2 DEVELOPER Routine screening for STI (sexually transmitted infection) HBSAG (HBS) Routine 08/28/2024 4:58 PM DB2 DEVELOPER Routine screening for STI (sexually transmitted infection) MS BLOOD COUNT COMPLETE AUTO&AUTO DIFRNTL WBC Routine 08/28/2024 4:57 PM DB2 DEVELOPER Dizzy ISTAT CHEM 8 Routine 08/28/2024 4:57 PM DB2 DEVELOPER Dizzy UA W/ SEDIMENT EXAM REFLEXED PER CRITERIA STAT 08/28/2024 4:40 PM DB2 DEVELOPER Urine frequency TRICHOMONAS, ANDREIA, AND BACTERIAL VAGINOSIS BY [facility] Routine 08/28/2024 4:35 PM DB2 DEVELOPER Routine screening for STI (sexually transmitted infection) GC CHLAMYDIA TRACH PROBE Routine 08/28/2024 4:35 PM DB2 DEVELOPER Routine screening for STI (sexually transmitted infection) EKG 12 LEAD Routine 08/28/2024 12:00 AM DB2 DEVELOPER Chest tightness from Last 3 Months Results * 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 (Lesions) [[id number]] (08/28/2024 5:57 PM DB2 DEVELOPER) HSV 1 Negative Negative 08/29/2024 10:39 AM DB2 DEVELOPER [facility] HSV 2 Negative Negative 08/29/2024 10:39 AM DB2 DEVELOPER [facility] Other LESION SPECIMEN / Unknown Non-Blood / Unknown 08/28/2024 5:57 PM DB2 DEVELOPER 08/28/2024 5:57 PM DB2 DEVELOPER [facility] - 08/29/2024 10:39 AM DB2 DEVELOPER Results from the Aptima HSV 1 & 2 assay should be interpreted in conjunction with other clinical data available to the clinician. A negative Aptima HSV 1 & 2 assay result does not preclude a possible infection because results are dependent on adequate specimen collection. us Ernestina Toribio MD MICROBIOLOGY Final Result Performing Organization Address City/[facility]/ZIP Co de Phone Number [facility] [address] [place] [address], [place] * TREPONEMA PALLIDUM [25601.1] (08/28/2024 5:15 PM DB2 DEVELOPER) TREPONEMA PALLIDUM Non-Reacti ve Non-Reacti ve 08/28/2024 10:36 PM DB2 DEVELOPER [facility] Blood BLOOD SPECIMEN / Unknown [facility] / Unknown 08/28/2024 5:15 PM DB2 DEVELOPER 08/28/2024 5:58 PM DB2 DEVELOPER us Ernestina Toribio MD SEND OUTS Final Result Performing Organization Address [facility] Co de Phone Number [facility] [address] [place] [address], [place] * HSV TYPE SPEC IGG GENESIS (08/28/2024 5:13 PM DB2 DEVELOPER) HSV 1 IGG, TYPE SPECIFIC AB <0.90 index [facility] HSV 2 IGG, TYPE SPECIFIC AB <0.90 index [facility] Comment: Index Interpretation ----- <0.90 Negative 0.90-1.09 Equivocal >1.09 Positive This assay utilizes recombinant type-specific antigens to differentiate HSV-1 from HSV-2 infections. A positive result cannot distinguish between recent and past infection. If recent HSV infection is suspected but the results are negative or equivocal, the assay should be repeated in 4-6 weeks. The performance characteristics of the assay have not been established for pediatric populations, immunocompromised patients, or screening. For additional information, please refer to http://Swapbox.Faction Skis/faq/PBH700 (This link is being provided for informational/ educational purposes only.) Blood BLOOD SPECIMEN / Unknown 08/28/2024 5:13 PM DB2 DEVELOPER 08/28/2024 5:13 PM DB2 DEVELOPER Ernestina Toribio MD SEND OUTS Final Result Performing Organization Address [facility] de Phone Number [employer] [facility] [address] [place] [address], [facility] [address] [place] [address] * HBSAG (HBS) [79424.2] (08/28/2024 4:58 PM DB2 DEVELOPER) HEPATITIS B SURFACE ANTIGEN NON-REACTI VE NON-REACTI VE [facility] Comment: For additional information, please refer to http://Swapbox.Scioderm/faq/FMW035 (This link is being provided for informational/ educational purposes only.) Blood BLOOD SPECIMEN / Unknown 08/28/2024 4:58 PM DB2 DEVELOPER 08/28/2024 4:58 PM DB2 DEVELOPER Ernestina Toribio MD SEND OUTS Final Result Performing Organization Address [facility]/ZIP Co de Phone Number [employer] [facility] [address] [place] [address], [place] [phone] [facility] [address] [place] [address] * ANTI HCV [25188.2] (08/28/2024 4:58 PM DB2 DEVELOPER) HEPATITIS C ANTIBODY NON-REACTI VE NON-REACT TAE [facility] Comment: HCV antibody was non-reactive. There is no laboratory evidence of HCV infection. In most cases, no further action is required. However, if recent HCV exposure is suspected, a test for HCV RNA (test code 55039) is suggested. For additional information please refer to http://Swapbox.Scioderm/faq/UZU05i8 (This link is being provided for informational/ educational purposes only.) Blood BLOOD SPECIMEN / Unknown 08/28/2024 4:58 PM DB2 DEVELOPER 08/28/2024 4:58 PM DB2 DEVELOPER Ernestina Toribio MD SEND OUTS Final Result [employer] [facility] [address] [place] [address], [facility] [address] [place] [address] * ANTI HIV 1/2 [72231.0] (08/28/2024 4:58 PM DB2 DEVELOPER) HIV AG/AB, 4TH GEN NON-REACT TAE NON-REACT TAE [facility] Comment: HIV-1 antigen and HIV-1/HIV-2 antibodies were not detected. There is no laboratory evidence of HIV infection. PLEASE NOTE: This information has been disclosed to you from records whose confidentiality may be protected by state law. If your state requires such protection, then the state law prohibits you from making any further disclosure of the information without the specific written consent of the person to whom it pertains, or as otherwise permitted by law. A general authorization for the release of medical or other information is NOT sufficient for this purpose. For additional information please refer to http://Swapbox.Contactual.Storitz/faq/TWX037 (This link is being provided for informational/ educational purposes only.) The performance of this assay has not been clinically validated in patients less than 2 years old. Blood BLOOD SPECIMEN / Unknown 08/28/2024 4:58 PM DB2 DEVELOPER 08/28/2024 4:58 PM DB2 DEVELOPER Ernestina Toribio MD SEND OUTS Final Result [facility] [address] [place] [address], [place] [phone] [facility] [address] [place] [address] * IN CLINIC Chem 8 (08/28/2024 4:57 PM DB2 DEVELOPER) POCT, SODIUM, ISTAT 139 138 - 146 mmol/L [facility]Urgent Care) POCT, POTASSIUM, ISTAT 3.7 3.5 - 4.9 mmol/L [facility]) POCT, CHLORIDE, ISTAT 101 98 - 109 mmol/L [facility]) POCT, CARBON DIOXIDE, ISTAT 26 24 - 29 mmol/L [facility] ([facility]) POCT, GLUCOSE ISTAT 77 70 - 105 mg/dL [facility] (Urgent Care) POCT, UREA NITROGEN (BUN) ISTAT 14 8 - 26 mg/dL [facility] ([facility]) POCT,CREATININE , ISTAT 0.9 0.6 - 1.3 mg/dL [facility] ([facility]) POCT, CALCIUM, IONIZED, ISTAT 4.9 4.5 - 5.3 mg/dL [facility] (Ur[facility]) Blood BLOOD SPECIMEN / Unknown 08/28/2024 4:57 PM DB2 DEVELOPER 08/28/2024 4:57 PM DB2 DEVELOPER us Ernestina Toribio MD CHEMISTRY Final Result [facility] [address] [place] [address], [place] [facility] (Urgent Care) [address] [place] [address] * (ABNORMAL) IN CLINIC CBC and Differential (08/28/2024 4:57 PM DB2 DEVELOPER) Pathologist [facility] WHITE BLOOD CELL COUNT 6.5 3.8 - 10.8 Thousand/u L [facility] (Urgent Care) RED BLOOD CELL COUNT 4.71 3.80 - 5.10 Million/uL [facility] (Urgent Care) HEMOGLOBIN 12.1 11.7 - 15.5 g/dL [facility] HEMATOCRIT 38.6 35.0 - 45.0 % [facility]) MCV 82.0 80.0 - 100.[address] [facility]) MCH 25.7(L) 27.0 - 33.[address] [facility] ([facility]) MCHC 31.3(L) 32.0 - 36.0 g/dL [facility] (Urgent Care) Comment: For adults, a slight decrease in the calculated MCHC value (in the range of 30 to 32 g/dL) is most likely not clinically significant; however, it should be interpreted with caution in correlation with other red cell parameters and the patient's clinical condition. RDW 12.5 11.0 - 15.0 % [facility] (Urgent Care) PLATELET COUNT 246 140 - 400 Thousand/u L [facility] (Urgent Care) MPV 10.2 7.5 - 12.5 fL [facility] (Urgent Care) ABSOLUTE NEUTROPHILS 3,816 1,500 - 7,800 cells/uL [facility]) ABSOLUTE LYMPHOCYTES 2,009 850 - 3,900 cells/uL [facility]) ABSOLUTE MONOCYTES 371 200 - 950 cells/uL [facility]) ABSOLUTE EOSINOPHILS 286 15 - 500 cells/uL [facility]) ABSOLUTE BASOPHILS 20 0 - 200 cells/uL [facility]) NEUTROPHILS 58.7 % [facility]) LYMPHOCYTES 30.9 % [facility] (Ur[facility] Care) MONOCYTES 5.7 % [facility] (Ur[facility] Care) EOSINOPHILS 4.4 % [facility] (Urgent Care) BASOPHILS 0.3 % [facility] ([facility] Care) Blood BLOOD SPECIMEN / Unknown 08/28/2024 4:57 PM DB2 DEVELOPER 08/28/2024 4:57 PM DB2 DEVELOPER us Ernestina Toribio MD HEMATOLOGY Final Result Performing Organization Address [facility] Co de Phone Number [facility] [address] [place] [address], [facility] [address] [place] [address] * STAT Urinalysis w/ reflex to Microscopic (08/28/2024 4:40 PM DB2 DEVELOPER) COLOR YELLOW YELLOW [facility] [...] URINE SPECIMEN / Unknown 08/28/2024 4:40 PM DB2 DEVELOPER 08/28/2024 4:41 PM DB2 DEVELOPER us Ernestina Toribio MD URINE Final Result Performing Organization Address [facility]/ZIP Co de Phone Number [facility] [address] [place] [address], [place] [facility] (Urgent Care) [address] [place] [address] * (ABNORMAL) Vaginal-TRICHOMONAS, ANDREIA, AND BACTERIAL VAGINOSIS BY [facility] (08/28/2024 4:35 PM DB2 DEVELOPER) ANDREIA SPECIES Positive(A) Negative 08/29/19 11:18 AM DB2 DEVELOPER [facility] ANDREIA GLABRATA Negative Negative 08/29/2024 11:18 AM DB2 DEVELOPER [facility] TRICHOMONAS VVA Negative Negative 11:18 AM DB2 DEVELOPER [facility] BACTERIAL VAGINOSIS Negative Negative 08/29/2024 11:18 AM DB2 DEVELOPER [facility] Other VAGINAL SWAB / Unknown Non-Blood / Unknown 08/28/2024 4:35 PM DB2 DEVELOPER 08/28/2024 4:36 PM DB2 DEVELOPER us Ernestina Toribio MD MICROBIOLOGY Final Result Performing Organization Address City/[facility]/ZIP Co de Phone Number [facility] [address] [place] [address], [place] * Vaginal GC CHLAMYDIA TRACH PROBE (08/28/2024 4:35 PM DB2 DEVELOPER) CHLAMYDIA PROBE Negative 11:45 AM DB2 DEVELOPER [facility] N GONORRHOEAE PROBE Negative 08/29/2024 11:45 AM DB2 DEVELOPER [facility] Other VAGINAL SWAB / Unknown Non-Blood / Unknown 08/28/2024 4:35 PM DB2 DEVELOPER 08/28/2024 4:36 PM DB2 DEVELOPER us Ernestina Toribio MD MICROBIOLOGY Final Result [facility] [address] [place] [address], [place] * EKG 12 LEAD (08/28/2024 12:00 AM DB2 DEVELOPER) us Ernestina Toribio MD EKG ORD Final Result from Last 3 Months Insurance [facility] Care Teams Survey Instrument Operator Relationship Specialty Start Date End Date Pcp, No . PCP - General 03/25/24 Clinic, No Pcp Or . 03/25/24
--- OUTSIDE RECORDS SUMMARY | 2024-10-18 19:25 | XMS_ITS | Encounter Summary ---
Author Organization [facility] Address [address] [place] [address] Care Team Providers Care Concrete Boom Pump Operator Name Role Phone Rakesh Cid PA-C Unavailable [phone] Rakesh Cid PA-C Primary Care Provider [phone] Lita Oseguera Unavailable Unavailable Rakesh Cid PA-C Unavailable [phone] Isaura Lamar RN Unavailable Unavailable Lita Oseguera Unavailable Unavailable Marija Edgar APRN WEB APPLICATIONS PROGRAMMER Primary Care Provider + Chanelle Mccann APRN CN Unavailab le Lesley Guillermo CHKamryn Unavailable [phone] Kyara De La Fuente RN Unavailable [phone] Marija Edgar APRN WEB APPLICATIONS PROGRAMMER Unavailable [phone] Mynor Broussard MD Unavailable Keisha Dotson MD Unavailable [phone] Mary Mejia Unavailable Unavailable Stacey Briones RESTAURANT HOSTESS Unavailable [phone] Lesley Guillermo CHW Unavailable [phone] Mary Mejia Unavailable Unavailable Lita Oseguera Unavailable Unavailable Galo Burrell MD Unavailable Unavailable Cristina Wood Unavailable Eagle Lesley [facility] Unavailable Meredith Bedoya Unavailable Unavailable Cristina Wood Unavailable Thang Diana [place] [facility] Unavailable [phone] Rain Galaviz-C Unavailable Summer Lara MD Unavailable Summer Lara MD Unavailable [phone] Summer Lara MD Unavailable [phone] Tavia Wyatt MD Unavailable [phone] Johnny Murillo MD Unavailable Erica Farrell APRN WEB APPLICATIONS PROGRAMMER Unavailable Teresita Bean [facility] Unavailable Tavia Wyatt MD Unavailable [phone] Diana Desir [facility] Unavailable [phone] Rich Barrett MD Unavailable [phone] Neil Kent MD Unavailable Roney Story DPM Unavailable Erica Farrell ARCH SUPPORT TECHNICIAN WEB APPLICATIONS PROGRAMMER Unavailable Diana Desir [facility] Unavailable [phone] Jelena David OD Unavailable Galo Burrell MD Unavailable Unavailable Livan Sharif MD Unavailable + Livan Sharif MD Unavailable + Catherine Cm MD Unavailable + Valery Veronica-C Unavailable Catherine Cm MD Unavailable + Johnny Murillo MD Unavailable [phone] Brea Quinn ARCH SUPPORT TECHNICIAN WEB APPLICATIONS PROGRAMMER Unavailable [phone] Brea Quinn ARCH SUPPORT TECHNICIAN WEB APPLICATIONS PROGRAMMER Unavailable [phone] Jose Francisco Johnson MD Unavailable Livan Sharif MD Unavailable Catherine Cm MD Unavailable + Sydnie Martinez RN Unavailable Unavailable Alfonso Renteria MD Unavailable Esha Grimm PA-C Primary Care Provider Cheng Todd PA-C Unavailable Radha Lomeli ARCH SUPPORT TECHNICIAN WEB APPLICATIONS PROGRAMMER Unavailable Jelena David OD Unavailable Pao Joseph RN Unavailable Unavailable Esha Grimm PA-C Unavailable [phone] Valery Veronica PA-C Unavailable Rey Tay MD Unavailable Rocky Zepeda DO Unavailable Philip Dumont MD Unavailable [phone] Meredith Carrera PA-C Unavailable [phone] Neil Kent MD Unavailable Juan Pablo Emmanuel MD Unavailable Audrey Waite PA-C Unavailable Valery Veronica PA-C Unavailable Herminia Hatch MD Unavailable Jelena David OD Unavailable Juan Pablo Emmanuel MD Unavailable Maru Man PA-C Unavailable Encounter Details Date Type Department Care Team (Late st Contact Info) Description 02/27/[address], [address] [place] [address] Rakesh Cid PA-C [address] [place] [address] Social History Tobacco Use Types [...] PM CDT Legal Sex Female 4:13 AM BANDMILL OPERATOR Gender Identity Female 03/02/2021 5:45 PM [...] message?: Yes at Home number on file [phone] (home) Violet Jeffrey Patient Director Of Direct Marketing documented in this encounter Plan of Treatment Upcoming Encounters Date Type Department Care Team (Late st Contact Info) Description 10/22/2024 11:00 AM CDT Office Visit [facility] [address] [phone] Maru Man PA-C [address] [address] 10/23/2024 PRE VISIT [facility] Neurology [facility] - [address], [address] [place] [phone] Johnny Penn MD [address] [place], [place] [address] Previsit 10/23/2024 9:30 AM CDT Office Visit [facility] Neurology [facility] - [address], [address] [place] [phone] [place] [address] [place], [place] [address] Johnny Penn MD [address] [place] [address] 10/24/2024 4:00 PM CDT Office Visit [facility] [place] [address] [place] [phone] Jelena David, [address] [facility] [place] [address] 10/31/2024 9:15 AM CDT Virtual Visit [facility] [address] 4th [place] [phone] Meredith Carrera PA-C [address] [place] [address] [phone] 12/20/2024 2:30 PM CDT Office Visit [facility] [address] [place] [address] Esha Grimm PA-C [address] [place] [address] documented as of this encounter Visit Diagnoses Not on filedocumented in this encounter Additional Health Concerns Infection Onset Date Last Indicated Resolved Time Rule Out COVID-19 07/30/2020 07/30/2020 07/30/2020 7:11 PM BANDMILL OPERATOR Rule Out COVID-19 08/30/2020 08/30/2020 08/30/2020 5:05 PM BANDMILL OPERATOR Rule Out COVID-19 09/24/2020 09/24/2020 09/24/2020 9:24 AM CDT Rule Out COVID-19 11/05/2020 11/05/2020 11/06/2020 1:09 PM CDT Rule Out COVID-19 05/11/2021 05/11/2021 05/13/2021 10:18 AM CDT Rule Out COVID-19 07/13/2021 07/13/2021 07/14/2021 3:04 PM BANDMILL OPERATOR Rule Out COVID-19 07/18/2021 07/18/2021 07/20/2021 1:56 PM BANDMILL OPERATOR COVID-19 07/18/2021 07/18/2021 08/08/2021 11:3 9 PM BANDMILL OPERATOR Rule Out COVID-19 12/18/2021 12/18/2021 12/19/2021 11:34 AM CDT Rule Out COVID-19 02/24/2022 02/24/2022 02/25/2022 1:08 PM CDT Rule Out COVID-19 04/26/2022 04/26/2022 04/26/2022 6:47 AM CDT Rule Out COVID-19 05/17/2022 05/17/2022 05/17/2022 10:20 PM BANDMILL OPERATOR Rule Out COVID-19 06/09/2022 06/09/2022 06/09/2022 9:35 AM BANDMILL OPERATOR COVID-19 06/09/2022 06/09/2022 06/30/2022 11:4 1 PM BANDMILL OPERATOR Rule Out COVID-19 11/10/2022 11/10/2022 11/11/2022 12:17 PM CDT Rule Out COVID-19 03/07/2023 03/07/2023 03/07/2023 1:20 PM CDT Rule Out COVID-19 12/26/2023 12/26/2023 12/26/2023 9:50 AM CDT Rule Out COVID-19 04/09/2024 04/09/2024 04/10/2024 6:48 PM CDT Rule Out COVID-19 10/04/2024 10/04/2024 10/05/2024 9:42 AM CDT Assessment Noted Time PHQ-9 Depression Total Score: 11 02/20/ 020 1:14 PM CDT documented as of this encounter Care Teams Concrete Boom Pump Operator Relationship Specialty Start Date End Date Rakesh Cid PA-C [address] [place] [address] PCP - General Physician Chairman & Co Founder - Medical 05/14/19 04/29/20 Marija Edgar APRN CNP PCP - General Nurse Practitioner 04/30/20 04/14/23 Esha Grimm PA-C [address] [place] [phone] PCP - General Family Medicine 05/04/23 Rakesh Cid PA-C [address] [facility] [place] [address] Assigned PCP 05/06/19 03/01/20 Lita Oseguera Personal Advocate & Liaison (PAL) 02/28/20 03/27/23 Rakesh Cid PA-C [address] [facility] [address] Assigned PCP 03/02/20 06/07/20 Isaura Lamar, RN Personal Advocate & Liaison (PAL) Family Practice 04/03/20 04/06/20 Lita Oseguera Personal Advocate & Liaison (PAL) 04/07/20 04/29/20 Chanelle Mccann APRN CNM [address] [facility] [address] [place], [place] [address] Assigned OBGYN Provider 05/02/2005/09 Lesley Guillermo, [facility] Community Health Worker 05/30/2005/12 Kyara De La Fuente, VJ Specialty Accounting Bookkeeper Neurology 06/04/20 03/05/21 Marija Edgar APRN WEB APPLICATIONS PROGRAMMER Assigned PCP 06/08/20 04/29/23 Mynor Broussard MD [address] [facility] 500 [place] [address] Assigned Surgical Provider 06/01/20 11/28/21 Keisha Dotson MD [address] [place], [place] [address] Assigned Neuroscience Provider 06/04/20 04/01/23 Mary Mejia Financial Resource Worker 08/07/20 08/21/20 Stacey Briones, RESTAURANT HOSTESS Lead Accounting Bookkeeper Primary Care - CC 08/11/2012/30 Lesley Guillermo, [facility] Community Health Worker 08/11/2010/01 Jackie Mary Financial Resource Worker 09/02/20 10/06/20 Lita Oseguera Personal Advocate & Liaison (PAL) Family Medicine 09/10/20 09/21/20 Galo Burrell MD Assigned Heart and Vascular Provider 10/05/20 04/02/22 Cristina Wood Financial Resource Worker 10/07/20 10/14/20 Lesley Guillermo, [facility] Community Health Worker 10/23/2012/30 Meredith Bedoya Financial Resource Worker 10/23/20 11/23/20 Cristina Wood Financial Resource Worker 02/09/21 02/09/21 [facility] [address] [place] [address] Pharmacist Pharmacist 04/17/21 Rain Galaviz PA-C [address] [place] [address] [address] [place], [place] [phone] Physician Chairman & Co Founder Dermatology 04/28/21 Summer Lara MD [address] [place] [address] [id number] Assigned OBGYN Provider 05/10/2105/23 Summer Lara MD [address] [place] [address] Assigned OBGYN Provider 05/31/21 2 Summer Lara MD [address] [place] [address] Assigned OBGYN Provider 05/24/2105/30 Tavia Wyatt MD [address] [place] [address] Dermatology 07/14/21 Johnny Murillo MD [address] [facility] [address] [place] [address] Assigned Musculoskeletal Provider 08/30/21 03/17/22 Erica Farrell APRN WEB APPLICATIONS PROGRAMMER [address] [facility] [address] [place] [address] Nurse Practitioner Cardiovascular Disease 09/09/21 [facility] [address] [place] [place] [phone] Pharmacist Pharmacist 09/24/21 09/29/21 Tavia Wyatt MD [address] [place] [address] Assigned Surgical Provider 11/29/21 05/07/22 [facility] [address] [place] [address] Assigned MTM Pharmacist 01/02/22 Rich Barrett MD [address] [place] [address] Physician Ophthalmology 01/21/22 Neil Kent MD 500 [place] [address] Dermatology 02/24/22 Roney Story DPM [address] [facility] [address] [place] [address] Assigned Musculoskeletal Provider 03/20/22 08/13/22 Erica Farrell APRN WEB APPLICATIONS PROGRAMMER [address]00 [place] [address] Assigned Heart and Vascular Provider 04/03/22 04/16/22 Diana Desir, [facility] [address] [place] [address] Assigned MTM Pharmacist 04/07/22 Jelena David OD [address] [facility] [place] [address] Assigned Surgical Provider 05/08/22 10/08/22 Galo Burrell MD Assigned Heart and Vascular Provider 04/17/22 06/11/22 Livan Sharif MD [address] [address] [place] [address] Cardiovascular Disease 05/14/22 Livan Sharif MD [address] [place] [address] [place] [address] Assigned Heart and Vascular Provider 06/12/22 07/23/22 Catherine Cm MD [address] [place] [address] Cardiovascular Disease 07/21/22 Valery Veronica, PAUcheC [address] [place] [address] Physician Chairman & Co Founder Dermatology 07/21/22 Catherine Cm MD [address] [facility] [address] [place] [address] Assigned Heart and Vascular Provider 07/24/22 11/05/22 Johnny Murillo MD [address] [place] [address] Assigned Musculoskeletal Provider 08/14/22 10/08/22 Brea Quinn APRN WEB APPLICATIONS PROGRAMMER [address] [place] [address] Nurse Practitioner Dermatology 09/21/22 Brea Quinn APRN WEB APPLICATIONS PROGRAMMER [address] [place] [address] [place] [address] Assigned Surgical Provider 10/09/22 05/01/24 [place] [address] [place] [address] [address] Assigned Musculoskeletal Provider 10/09/22 05/01/24 Livan Sharif MD [address] [place] [address] Assigned Heart and Vascular Provider 11/06/22 11/12/22 Catherine Cm MD [address] [place] [address] Assigned Heart and Vascular Provider 11/13/22 05/27/23 Sydnie Martinez, RN Personal Advocate & Liaison (PAL) Family Medicine 03/28/23 07/31/23 Alfonso Renteria MD [address] [facility] [address] [place] [address] Assigned Neuroscience Provider 04/02/23 09/29/24 Cheng Tdod PA-C [address] [place] [address] [phone] Assigned PCP 04/30/23 07/15/23 Radha Lomeli APRN WEB APPLICATIONS PROGRAMMER [address] [facility] [address] [place] [address] Assigned Heart and Vascular Provider 05/28/23 Jelena David OD [address] [facility] [address] [place] [phone] Ophthalmology 06/15/23 Pao Joseph RN Personal Advocate & Liaison (PAL) Nurse 08/01/23 11/07/23 Esha Grimm PA-C [address] [place] [phone] Assigned PCP 07/16/23 Valery Veronica PA-C [address] [place] [address] 684315 Physician Chairman & Co Founder Dermatology 09/19/23 Rey Tay MD [address] [place] [address] [phone] MD Gastroenterology 09/20/23 Rocky Zepeda DO [address] [place] [address] [phone] Physician Gastroenterology 09/20/23 Philip Dumont MD [address] [place] [address] 710045 Physician Ophthalmology 09/22/23 Meredith Carrera PA-C [address] [place] [address] 797075 Assigned Gastroenterology Provider 11/01/23 Neil Kent MD [address] [place] [address] [phone] MD Dermatology 11/02/23 [place] [address] [place] [address] [phone] Neurological Surgery 12/26/23 Audrey Waite PA-C [address] [place] [address] 614205 Physician Chairman & Co Founder Dermatology 02/28/24 Valery Veronica PA-C 127869 [place] [address] Physician Chairman & Co Founder Dermatology 04/10/24 Herminia Hatch MD [facility] [place] [address] Assigned Rheumatology Provider 07/02/24 [place] [address] [place] [address] [place] [address] Ophthalmology 08/30/24 [place] [address] [place] [address] Assigned Neuroscience Provider 09/30/24 Maru Man PA-C [address] [address] Physician Chairman & Co Founder Dermatology 10/03/24 documented as of this encounter
--- OUTSIDE RECORDS SUMMARY | 2024-10-18 19:25 | XMS_ITS | Encounter Summary ---
Author Organization [facility] Address [address] [place] [address] Care Team Providers Care Judge Clerk Name Role Phone Lita Oseguera Unavailable Unavailable Marija Edgar APRN TANK ASSEMBLER Primary Care Provider + Marija Edgar APRN TANK ASSEMBLER Unavailable [phone] Mynor Broussard MD Unavailable [phone] Keisha Dotson MD Unavailable Galo Burrell MD Unavailable Unavailable Diana Desir [facility] Unavailable Rain Galaviz PA-C Unavailable Summer Lara MD Unavailable [phone] Tavia Wyatt MD Unavailable Johnny Murillo MD Unavailable Erica Farrell APRN TANK ASSEMBLER Unavailable Teresita Bean [facility] Unavailable [phone] Tavia Wyatt MD Unavailable Diana Desir [facility] Unavailable Rich Barrett MD Unavailable [phone] Neil Kent MD Unavailable Roney Story DPM Unavailable Erica Farrell MEAL GRINDER TENDER TANK ASSEMBLER Unavailable Diana Desir [facility] Unavailable [phone] Jelena David OD Unavailable Galo Burrell MD Unavailable Unavailable Livan Sharif MD Unavailable + Livan Sharif MD Unavailable + Catherine Cm MD Unavailable + Valery Veronica PA-C Unavailable [phone] Catherine Cm MD Unavailable + Johnny Murillo MD Unavailable [phone] Brea Quinn MEAL GRINDER TENDER TANK ASSEMBLER Unavailable [phone] Brea Quinn MEAL GRINDER TENDER TANK ASSEMBLER Unavailable [phone] Jose Francisco Johnson MD Unavailable Livan Sharif MD Unavailable + IsCatherine hobbs MD Unavailable + Sydnie Martinez RN Unavailable Unavailable Alfonso Renteria MD Unavailable Esha Grimm-C Primary Care Provider Cheng Todd PA-C Unavailable Radha Lomeli MEAL GRINDER TENDER TANK ASSEMBLER Unavailable [phone] Jelena David OD Unavailable Pao Joseph RN Unavailable Unavailable Ehsa Grimm-C Unavailable [phone] JeremíasValery damon PA-C Unavailable [phone] Rey Tay MD Unavailable Rocky Zepeda DO Unavailable Philip Dumont MD Unavailable [phone] Meredith CarreraC Unavailable [phone] Neil Kent MD Unavailable Juan Pablo Emmanuel MD Unavailable [phone] Audrey WaiteC Unavailable [phone] Valery VeronicaC Unavailable [phone] Herminia Hatch MD Unavailable Jelena David OD Unavailable Juan Pablo Emmanuel MD Unavailable [phone] Maru Man PA-C Unavailable [phone] Encounter Details Date Type Department Care Team (Late st Contact Info) Description 08/04/[address] [address] [facility] Social History Tobacco Use Types Packs/Day Years [...] PHQ-2 Score 0 04/02/2021 [facility] - Occupational Stress Questionnaire [...] in a retirement (including now)? No 08/11/2020 [place] Depression Scale Answer Date Recorded [place] Depression Score 5 01/14/2021 Last EPDS Self Harm Result Not on file 01/14 Education Answer Date Recorded What is the highest level of school you have completed or the highest degree you have received? 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 LUBRICATION TECHNICIAN Gender Identity Female 03/02/2021 5:45 PM CDT Sexual Orientation Straight 02/28/2020 12 :51 AM CDT COVID-19 Exposure Response Date Recorded In the last month, have you been in contact with someone who was confirmed or suspected to have Coronavirus / COVID-19? No / Unsure 08/03/2021 2:24 PM LUBRICATION TECHNICIAN documented as of this encounter Plan of Treatment Upcoming Encounters Date Type Department Care Team (Late st Contact Info) Description 10/22/2024 11:00 AM CDT Office Visit [facility] [address] [phone] Maru Man PA-C [address] [address] 10/23/2024 PRE VISIT [facility] Neurology [address], [address] [place] [phone] Johnny Penn MD [address] [place] [address] Previsit 10/23/2024 9:30 AM CDT Office Visit [facility] Neurology [facility] - [address], [address] [place] [phone] [place] [address] [place] [address] Johnny Penn MD [address] [place] [place] 4[address]15 10/24/2024 4:00 PM CDT Office Visit [facility] [address] [facility] [address] [place] [phone] Jelena David, [address] [facility] [place] [address] 10/31/2024 9:15 AM CDT Virtual Visit [facility] Gastroenterology Clinic [address] 4th [place] [phone] Meerdith Carrera PA-C [address] [place] [address] [phone] 12/20/2024 2:30 PM CDT [facility] Visit [facility] [address] [place] [address] Esha Grimm PA-C [address] [place] [address] documented as of this encounter Visit Diagnoses Not on filedocumented in this encounter Additional Health Concerns Infection Onset Date Last Indicated Resolved Time COVID-19 07/18/2021 07/18/2021 08/08/2021 11:3 9 PM LUBRICATION TECHNICIAN Rule Out COVID-19 12/18/2021 12/18/2021 12/19/2021 11:34 AM CDT Rule Out COVID-19 02/24/2022 02/24/2022 02/25/2022 1:08 PM CDT Rule Out COVID-19 04/26/2022 04/26/2022 04/26/2022 6:47 AM CDT Rule Out COVID-19 05/17/2022 05/17/2022 05/17/2022 10:20 PM LUBRICATION TECHNICIAN Rule Out COVID-19 06/09/2022 06/09/2022 06/09/2022 9:35 AM LUBRICATION TECHNICIAN COVID-19 06/09/2022 06/09/2022 06/30/2022 11:4 1 PM LUBRICATION TECHNICIAN Rule Out COVID-19 11/10/2022 11/10/2022 11/11/2022 [...] documented as of this encounter Care Teams Judge Clerk Relationship Specialty Start Date End Date Marija Edgar APRN CNP PCP - General Nurse Practitioner 04/30/20 04/14/23 Esha Grimm PA-C [address] [place] [phone] PCP - General Family Medicine 05/04/23 Lita Oseguera Personal Advocate & Liaison (PAL) 02/28/20 03/27/23 Marija Edgar APRN TANK ASSEMBLER Assigned PCP 06/08/20 04/29/23 Mynor Broussard MD 6363 [facility] 500 [place] [address] Assigned Surgical Provider 06/01/20 11/28/21 Keisha Dotson MD 909 [place], [place] 753405 Assigned Neuroscience Provider 06/04/20 04/01/23 Galo Burrell MD Assigned Heart and Vascular Provider 10/05/20 04/02/22 Diana Desir, [facility] [address] [place], [place] [address] Pharmacist Pharmacist 04/17/21 Rain Galaviz PA-C [address] [place] [address] [address] [place] [address] Physician Utility Division Project Manager Dermatology 04/28/21 Summer Lara MD [address] [place] [address] [phone] Assigned OBGYN Provider 05/31/21 9 2 Tavia Wyatt MD [address] [place] [address] [phone] Dermatology 07/14/21 Johnny Murillo MD [address] [place] [address] Assigned Musculoskeletal Provider 08/30/21 03/17/22 Erica Farrell APRN TANK ASSEMBLER 6405 [facility] [address] [place] [address] Nurse Practitioner Cardiovascular Disease 09/09/21 Teresita Bean, [facility] [address] [facility] [address] [place] [phone] Pharmacist Pharmacist 09/24/21 09/29/21 Tavia Wyatt MD [address] [place] [address] Assigned Surgical Provider 11/29/21 05/07/22 [facility] [address] [place] [address] Assigned MTM Pharmacist 01/02/22 Rich Barrett MD [address] [place] [address] Physician Ophthalmology 01/21/22 Neil Kent MD 500 [place], [place] 0[address]005 Dermatology 02/24/22 Roney Story DPM [address] [facility] 300 [place], [place] 475867 Assigned Musculoskeletal Provider 03/20/22 08/13/22 Erica Farrell APRN TANK ASSEMBLER 1700 [place] [address] Assigned Heart and Vascular Provider 04/03/22 04/16/22 Diana Desir, [facility] [address] [place] [address] Assigned MTM Pharmacist 04/07/22 Jelena David OD [address] [facility] [place] [address] Assigned Surgical Provider 05/08/22 10/08/22 Galo Burrell MD Assigned Heart and Vascular Provider 04/17/22 06/11/22 Livan Sharif MD [address] [place] [address] Cardiovascular Disease 05/14/22 Livan Sharif MD [address] [place] [address] Assigned Heart and Vascular Provider 06/12/22 07/23/22 Catherine Cm MD [address] [place] [address] Cardiovascular Disease 07/21/22 Valery Veronica PA-C 909 [place] [address] Physician Utility Division Project Manager Dermatology 07/21/22 Catherine Cm MD [address] [place] [address] Assigned Heart and Vascular Provider 07/24/22 11/05/22 Johnny Murillo MD 25[address] [facility] [address] [place] [address] Assigned Musculoskeletal Provider 08/14/22 10/08/22 Brea Quinn APRN TANK ASSEMBLER 500 [facility], [place] 6[address] Nurse Practitioner Dermatology 09/21/22 Brea Quinn APRN TANK ASSEMBLER 6401 [facility] [place] [address] Assigned Surgical Provider 10/09/22 05/01/24 [place] [address] [phone] Assigned Musculoskeletal Provider 10/09/22 05/01/24 Livan Sharif MD 6405 [facility] S [email or web address] [address] [place] [address] Assigned Heart and Vascular Provider 11/06/22 11/12/22 Catherine Cm MD 6405 [facility] [address] [place] [address]25 Assigned Heart and Vascular Provider 11/13/22 05/27/23 Sydnie Martinez RN Personal Advocate & Liaison (PAL) Family Medicine 03/28/23 07/31/23 Alfonso Renteria MD 5775 [facility] [address] 200 [place] [address] Assigned Neuroscience Provider 04/02/23 09/29/24 Cheng Todd PA-C [address] [place] [address] Assigned PCP 04/30/23 07/15/23 Radha Lomeli APRN TANK ASSEMBLER 6405 [facility] [address] [place] [address] Assigned Heart and Vascular Provider 05/28/23 Jelena David OD [address] [facility] [place] [address] Ophthalmology 06/15/23 Pao Joseph, VJ Personal Advocate & Liaison (PAL) Nurse 08/01/23 11/07/23 Esha Grimm PA-C [address] [place] [phone] Assigned PCP 07/16/23 Valery Veronica PA-C [address] [place] [address] 798415 Physician Utility Division Project Manager Dermatology 09/19/23 Rey Tay MD [address] [place] [address] 153515 Gastroenterology 09/20/23 Rocky Zepeda DO [address] [place] [address] 922945 Physician Gastroenterology 09/20/23 Philip Dumont MD [address] [place] [address] Physician Ophthalmology 09/22/23 Meredith Carrera PA-C [address] [place] [address] Assigned Gastroenterology Provider 11/01/23 Neil Kent MD [address] [address] Dermatology 11/02/23 [place] [address] [facility] [place] [address] Neurological Surgery 12/26/23 Audrey Waite PA-C [address] [place] [address] Physician Utility Division Project Manager Dermatology 02/28/24 Valery Veronica PA-C 127391 [address] [place] [address] Physician Utility Division Project Manager Dermatology 04/10/24 Herminia Hatch MD [address] [place] [address] [phone] Assigned Rheumatology Provider 07/02/24 Jelena David OD [address] [place] [address] [place] [address] Ophthalmology 08/30/24 [place] [address] [place] [address] Assigned Neuroscience Provider 09/30/24 Maru Man PA-C [address] [address] Physician Utility Division Project Manager Dermatology 10/03/24 documented as of this encounter
--- OUTSIDE RECORDS SUMMARY | 2024-10-18 19:25 | XMS_ITS | Encounter Summary ---
Author Organization [facility] Address [address] [place] [address] Care Team Providers Care Director Of Contracts Name Role Phone Lita Oseguera Unavailable Unavailable Marija Edgar APRN HUMAN RESOURCES COMPENSATION ANALYST Primary Care Provider + Marija Edgar APRN HUMAN RESOURCES COMPENSATION ANALYST Unavailable Mynor Broussard MD Unavailable [phone] Keisha Dotson MD Unavailable Galo Burrell MD Unavailable Unavailable Diana Desir [facility] Unavailable Rain Galaviz PA-C Unavailable [phone] Summer Lara MD Unavailable [phone] Tavia Wyatt MD Unavailable Johnny Murillo MD Unavailable [phone] Erica Farrell APRN HUMAN RESOURCES COMPENSATION ANALYST Unavailable Teresita Bean [facility] Unavailable [phone] Tavia Wyatt MD Unavailable Diana Desir [facility] Unavailable [phone] Rich Barrett MD Unavailable [phone] Neil Kent MD Unavailable Roney Story DPM Unavailable Erica Farrell OFFICE MACHINES SALES REPRESENTATIVE HUMAN RESOURCES COMPENSATION ANALYST Unavailable Diana Desir [facility] Unavailable [phone] Jelena David OD Unavailable Galo Burrell MD Unavailable Unavailable Livan Sharif MD Unavailable + Livan Sharif MD Unavailable + Catherine Cm MD Unavailable + Valery Veronica PA-C Unavailable [phone] Catherine Cm MD Unavailable + Johnny Murillo MD Unavailable [phone] Brea Quinn OFFICE MACHINES SALES REPRESENTATIVE HUMAN RESOURCES COMPENSATION ANALYST Unavailable [phone] Brea Quinn OFFICE MACHINES SALES REPRESENTATIVE HUMAN RESOURCES COMPENSATION ANALYST Unavailable [phone] Jose Francisco Johnson MD Unavailable Livan Sharif MD Unavailable + IsCatherine hobbs MD Unavailable + Sydnie Martinez RN Unavailable Unavailable Alfonso Renteria MD Unavailable Esha Grimm-C Primary Care Provider Cheng Todd PA-C Unavailable Radha Lomeli OFFICE MACHINES SALES REPRESENTATIVE HUMAN RESOURCES COMPENSATION ANALYST Unavailable [phone] Jelena David OD Unavailable Pao Joseph RN Unavailable Unavailable Esha Grimm-C Unavailable JeremíasValery damon PA-C Unavailable [phone] Rey Tay MD Unavailable Rocky Zepeda DO Unavailable Philip Dumont MD Unavailable [phone] Meredith CarreraC Unavailable [phone] Neil Kent MD Unavailable Juan Pablo Emmanuel MD Unavailable [phone] Audrey Waite-C Unavailable [phone] Valery VeronicaC Unavailable [phone] Herminia Hatch MD Unavailable Jelena David OD Unavailable Juan Pablo Emmanuel MD Unavailable [phone] Maru Man PA-C Unavailable [phone] Encounter Details Date Type Department Care Team (Late st Contact Info) Description 07/14/2021 My[facility] Medical Advice [address] [address] Lauren Gan, RN Social History [...] attend chur ch or jehovah's witness services? More than 4 times per year [...] in a custodial (including now)? No 08/11/2020 [place] Depression Scale Answer Date Recorded [place] Depression Score 5 01/14/2021 Last EPDS Self Harm Result Not on file 01/14 Education Answer Date Recorded What is the highest level of school you have completed or the highest degree you have received? 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 BEEF CATTLE FARMER Gender Identity Female 03/02/2021 5:45 PM CDT Sexual Orientation Straight 02/28/2020 12 :51 AM CDT COVID-19 Exposure Response Date Recorded In the last month, have you been in contact with someone who was confirmed or suspected to have Coronavirus / COVID-19? Yes 07/15/2021 12:15 PM BEEF CATTLE FARMER documented as of this encounter Plan of Treatment Upcoming Encounters Date Type Department Care Team (Late st Contact Info) Description 10/22/2024 11:00 AM CDT Office Visit [facility] [address] [phone] Maru Man PA-C [address] [address] 10/23/2024 PRE VISIT [facility] Neurology [address], [address] [place] [phone] Johnny Penn MD [address] [place] [address] Previsit 10/23/2024 9:30 AM CDT Office Visit [facility] - [address], [address] [place] [phone] [place] [address] [address] [place] [address] Johnny Penn MD [address] [place] [address] 10/24/2024 4:00 PM CDT Office Visit [facility] 3305 [facility] [address] [place] [phone] Jelena David, [address] [facility] [address] 10/31/2024 9:15 AM CDT Virtual Visit [facility] [address] 4th [place] [phone] Meredith Carrera PA-C [address] [place] [address] 971175 12/20/2024 2:30 PM CDT Office Visit [facility] [address] [place] [address] Esha Grimm PA-C [address] [place] [address] documented as of this encounter Visit Diagnoses Not on filedocumented in this encounter Additional Health Concerns Infection Onset Date Last Indicated Resolved Time Rule Out COVID-19 07/13/2021 07/13/2021 07/14/2021 3:04 PM BEEF CATTLE FARMER Rule Out COVID-19 07/18/2021 07/18/2021 07/20/2021 1:56 PM BEEF CATTLE FARMER COVID-19 07/18/2021 07/18/2021 08/08/2021 11:3 9 PM BEEF CATTLE FARMER Rule Out COVID-19 12/18/2021 12/18/2021 12/19/2021 11:34 AM CDT Rule Out COVID-19 02/24/2022 02/24/2022 02/25/2022 1:08 PM CDT Rule Out COVID-19 04/26/2022 04/26/2022 04/26/2022 6:47 AM CDT Rule Out COVID-19 05/17/2022 05/17/2022 05/17/2022 10:20 PM BEEF CATTLE FARMER Rule Out COVID-19 06/09/2022 06/09/2022 06/09/2022 9:35 AM BEEF CATTLE FARMER COVID-19 06/09/2022 06/09/2022 06/30/2022 11:4 1 PM BEEF CATTLE FARMER Rule Out COVID-19 11/10/2022 11/10/2022 11/11/2022 [...] of this encounter Care Teams Director Of Contracts Relationship Specialty Start Date End Date Marija Edgar APRN HUMAN RESOURCES COMPENSATION ANALYST PCP - General Nurse Practitioner 04/30/20 04/14/23 Esha Grimm PA-C [address] [place] [phone] PCP - General Family Medicine 05/04/23 Lita Oseguera Personal Advocate & Liaison (PAL) 02/28/20 03/27/23 Marija Edgar APRN HUMAN RESOURCES COMPENSATION ANALYST Assigned PCP 06/08/20 04/29/23 Mynor Broussard MD [address] [address] Assigned Surgical Provider 06/01/20 11/28/21 Keisha Dotson MD 909 [place] [address] Assigned Neuroscience Provider 06/04/20 04/01/23 Galo Burrell MD Assigned Heart and Vascular Provider 10/05/20 04/02/22 Diana Desir, [facility] [address] [place] [address] Pharmacist Pharmacist 04/17/21 Rain Galaviz PA-C [address] [place] [address] [address] [facility] [place] [address] Physician Employee Operations Examiner Dermatology 04/28/21 Summer Lara MD [address] [place] [address] 138564 Assigned OBGYN Provider 05/31/21 2 Tavia Wyatt MD [address] [place] [address] 902494 Dermatology 07/14/21 Johnny Murillo MD [address] [place] [address] Assigned Musculoskeletal Provider 08/30/21 03/17/22 Erica Farrell APRN HUMAN RESOURCES COMPENSATION ANALYST 6405 [facility] [address] [place] [address] Nurse Practitioner Cardiovascular Disease 09/09/21 Teresita Bean [facility] [address] [facility] [place], [place] [phone] Pharmacist Pharmacist 09/24/21 09/29/21 Tavia Wyatt MD [address] [place] [address] Assigned Surgical Provider 11/29/21 05/07/22 [facility] [address] [place] [address] Assigned MTM Pharmacist 01/02/22 Rich Barrett MD [address] [place] [address] Physician Ophthalmology 01/21/22 Neil Kent MD 500 [place] [address] Dermatology 02/24/22 Roney Story DPM [address] [facility] [address] [place] [address] Assigned Musculoskeletal Provider 03/20/22 08/13/22 Erica Farrell APRN HUMAN RESOURCES COMPENSATION ANALYST 1700 [place] [address] Assigned Heart and Vascular Provider 04/03/22 04/16/22 Diana Desir, [facility] 3033 [place], [place] [address] Assigned MTM Pharmacist 04/07/22 Jelena David OD [address] [facility] [address] Assigned Surgical Provider 05/08/22 10/08/22 Galo Burrell MD Assigned Heart and Vascular Provider 04/17/22 06/11/22 Livan Sharif MD [address] [facility] [address] [place] [address] Cardiovascular Disease 05/14/22 Livan Sharif MD [address] [facility] [address] [place] [address] Assigned Heart and Vascular Provider 06/12/22 07/23/22 Catherine Cm MD [address] [facility] [address] [place] [address] Cardiovascular Disease 07/21/22 Valery Veronica, PA-C [address] [place] [address] Physician Employee Operations Examiner Dermatology 07/21/22 Catherine Cm MD 6[address] [facility] [place] [address] Assigned Heart and Vascular Provider 07/24/22 11/05/22 Johnny Murillo MD [address] [address] Assigned Musculoskeletal Provider 08/14/22 10/08/22 Brea Quinn APRN HUMAN RESOURCES COMPENSATION ANALYST [address] [place] [address] [phone] Nurse Practitioner Dermatology 09/21/22 Brea Quinn APRN HUMAN RESOURCES COMPENSATION ANALYST [address] [place] [address] Assigned Surgical Provider 10/09/22 05/01/24 [place] [address] [employer] [address] [address] Assigned Musculoskeletal Provider 10/09/22 05/01/24 Livan Sharif MD [address] [facility] [address] [place] [address] Assigned Heart and Vascular Provider 11/06/22 11/12/22 Catherine Cm MD [address] [facility] [place] [address] Assigned Heart and Vascular Provider 11/13/22 05/27/23 Sydnie Martinez RN Personal Advocate & Liaison (PAL) Family Medicine 03/28/23 07/31/23 Alfonso Renteria MD 5775 [facility] [address] 200 [place] [address] Assigned Neuroscience Provider 04/02/23 09/29/24 Cheng Todd PA-C [address] [place] [address] Assigned PCP 04/30/23 07/15/23 Radha Lomeli APRN HUMAN RESOURCES COMPENSATION ANALYST 6405 [facility] [address] [place] [address] Assigned Heart and Vascular Provider 05/28/23 Jelena David OD [address] [facility] [address] Ophthalmology 06/15/23 Pao Joseph, VJ Personal Advocate & Liaison (PAL) Nurse 08/01/23 11/07/23 Esha Grimm PA-C [address] [place] [phone] Assigned PCP 07/16/23 Valery Veronica PA-C [address] [place] [address] [phone] Physician Employee Operations Examiner Dermatology 09/19/23 Rey Tay MD 9 [place] [address] Gastroenterology 09/20/23 Rokcy Zepeda DO [address] [place] [address] Physician Gastroenterology 09/20/23 Philip Dumont MD [address] [place] [address] Physician Ophthalmology 09/22/23 Meredith Carrera PA-C [address] [place] [address] Assigned Gastroenterology Provider 11/01/23 Neil Kent MD [address] [place] [address] MD Dermatology 11/02/23 [place] [address] [place] [address] Neurological Surgery 12/26/23 Audrey Waite PA-C [address] [place] [address] Physician Employee Operations Examiner Dermatology 02/28/24 Valery Veronica PA-C [address] [place] [address] Physician Employee Operations Examiner Dermatology 04/10/24 Herminia Hatch MD [address] [place] [address] [phone] Assigned Rheumatology Provider 07/02/24 Jelena David OD [address] [place] [address] [place] [address] Ophthalmology 08/30/24 [place] [address] [employer] [address] [address] Assigned Neuroscience Provider 09/30/24 Maru Man PA-C [address] [place] [address] Physician Employee Operations Examiner Dermatology 10/03/24 documented as of this encounter
--- OUTSIDE RECORDS SUMMARY | 2024-10-18 19:25 | XMS_ITS | Encounter Summary ---
Author Organization [place] Address [address] [place] [address] Care Team Providers Care Director Of Acquisition Marketing Name Role Phone Lita Oseguera Unavailable Unavailable Marija Edgar APRN ROBOTICS SOFTWARE ENGINEER Primary Care Provider + Marija Edgar APRN ROBOTICS SOFTWARE ENGINEER Unavailable [phone] Mynor Broussard MD Unavailable [phone] Keisha Dotson MD Unavailable [phone] Galo Burrell MD Unavailable Unavailable Diana Desir [facility] Unavailable Rain Galaviz PA-C Unavailable Summer Lara MD Unavailable [phone] Tavia Wyatt MD Unavailable Johnny Murillo MD Unavailable Erica Farrell APRN ROBOTICS SOFTWARE ENGINEER Unavailable Teresita Bean [facility] Unavailable [phone] Tavia Wyatt MD Unavailable [place] Desir [facility] Unavailable Rich Barrett MD Unavailable [phone] Neil Kent MD Unavailable Roney Story DPM Unavailable Erica Farrell WOOD BUCKER ROBOTICS SOFTWARE ENGINEER Unavailable [place] Desir [facility] Unavailable [phone] Jelena David OD Unavailable [phone] Galo Burrell MD Unavailable Unavailable Livan Sharif MD Unavailable + Livan Sharif MD Unavailable + Catherine Cm MD Unavailable + Valery Veronica PA-C Unavailable [phone] Catherine Cm MD Unavailable + Johnny Murillo MD Unavailable [phone] Brea Quinn WOOD BUCKER ROBOTICS SOFTWARE ENGINEER Unavailable [phone] Brea Quinn WOOD BUCKER ROBOTICS SOFTWARE ENGINEER Unavailable [phone] Jose Francisco Johnson MD Unavailable Livan Sharif MD Unavailable + IsCatherine hobbs MD Unavailable + Sydnie Martinez RN Unavailable Unavailable Alfonso Renteria MD Unavailable Esha Grimm-C Primary Care Provider Cheng Todd PA-C Unavailable Radha Lomeli WOOD BUCKER ROBOTICS SOFTWARE ENGINEER Unavailable [phone] Jelena David OD Unavailable Pao Joseph RN Unavailable Unavailable Esha Grimm-C Unavailable [phone] JeremíasValery damon PA-C Unavailable [phone] Rey Tay MD Unavailable Rocky Zepeda DO Unavailable Philip Dumont MD Unavailable [phone] Meredith CarreraC Unavailable [phone] Neil Kent MD Unavailable Juan Pablo Emmanuel MD Unavailable [phone] Audrey WaiteC Unavailable [phone] Valery VeronicaC Unavailable [phone] Herminia Hatch MD Unavailable Jelena David OD Unavailable Juan Pablo Emmanuel MD Unavailable [phone] Maru Man PA-C Unavailable [phone] Encounter Details Date Type Department Care Team [...] Recorded PHQ-2 Score 0 04/02/2021 [facility] of Occupat ional [...] a care home (including now)? No 08/11/2020 [place] Depression Scale Answer Date Recorded [place] Depression Score 5 01/14/2021 Last EPDS Self Harm Result Not on file 01/14 Education Answer Date Recorded What is the highest level of school you have completed or the highest degree you have received? 12th grade 08/07/2020 Comments No Sex and Gender Information Value Date Recorded Sex Assigned at Female 03/02/2021 5:45 PM CDT Legal Sex Female 4:13 AM LITIGATION SERVICES MANAGER Gender Identity Female 03/02/2021 5:45 PM CDT Sexual Orientation Straight 02/28/2020 12 :51 AM CDT COVID-19 Exposure Response Date Recorded In the last month, have you been in contact with someone who was confirmed or suspected to have Coronavirus / COVID-19? No / Unsure 08/03/2021 2:24 PM LITIGATION SERVICES MANAGER documented as of this encounter Plan of Treatment Upcoming Encounters Date Type Department Care Team (Late st Contact Info) Description 10/22/2024 11:00 AM CDT Office Visit [address] [phone] Maru Man PA-C [address] [place] [address] 10/23/2024 PRE VISIT [facility] Neu[facility] - [address], [address] [place] [address] IsamarJohnny farnsworth MD [address] [place] [address] Previsit 10/23/2024 9:30 AM CDT Office Visit [facility] Neu[facility] [address] [facility], [address] [place] [phone] [place] [address] [place] 20[address] Johnny Penn MD [address] [place] [place] 4[address]85 10/24/2024 4:00 PM CDT Office Visit [facility] [address] [place] [phone] Jelena David, [address] [facility] [place] [address] 10/31/2024 9:15 AM CDT Virtual Visit [facility] Gastroenterology [address] [phone] Meredith Carrera PA-C [address] [place] [address] 12/20/2024 2:30 PM CDT Office Visit [facility] [address] [place] [address] Esha Grimm PA-C [address] [place] [address] documented as of this encounter Visit Diagnoses Not on filedocumented in this encounter Additional Health Concerns Infection Onset Date Last Indicated Resolved Time COVID-19 07/18/2021 07/18/2021 08/08/2021 11:3 9 PM LITIGATION SERVICES MANAGER Rule Out COVID-19 12/18/2021 12/18/2021 12/19/2021 11:34 AM CDT Rule Out COVID-19 02/24/2022 02/24/2022 02/25/2022 1:08 PM CDT Rule Out COVID-19 04/26/2022 04/26/2022 04/26/2022 6:47 AM CDT Rule Out COVID-19 05/17/2022 05/17/2022 05/17/2022 10:20 PM LITIGATION SERVICES MANAGER Rule Out COVID-19 06/09/2022 06/09/2022 06/09/2022 9:35 AM LITIGATION SERVICES MANAGER COVID-19 06/09/2022 06/09/2022 06/30/2022 11:4 1 PM LITIGATION SERVICES MANAGER Rule Out COVID-19 11/10/2022 11/10/2022 11/11/2022 [...] of this encounter Care Teams Director Of Acquisition Marketing Relationship Specialty Start Date End Date Marija Edgar APRN ROBOTICS SOFTWARE ENGINEER PCP - General Nurse Practitioner 04/30/20 04/14/23 Esha Grimm PA-C [address] [place] [address] PCP - General Family Medicine 05/04/23 Lita Oseguera Personal Advocate & Liaison (PAL) 02/28/20 03/27/23 Marija Edgar APRN ROBOTICS SOFTWARE ENGINEER Assigned PCP 06/08/20 04/29/23 Mynor Broussard MD [address] [facility] 500 [place] 522285 Assigned Surgical Provider 06/01/20 11/28/21 Keisha Dotson MD 909 [place], [place] 286455 Assigned Neuroscience Provider 06/04/20 04/01/23 Galo Burrell MD Assigned Heart and Vascular Provider 10/05/20 04/02/22 [facility] 3033 [place] [address] Pharmacist Pharmacist 04/17/21 Rain Galaviz PA-C [address] [facility] [address] [place] [address] Physician Animal Control Officer Dermatology 04/28/21 Summer Lara MD [address] [place] [address] 474954 Assigned OBGYN Provider 05/31/21 2 Tavia Wyatt MD [address] [place] [address] 929374 Dermatology 07/14/21 Johnny Murillo MD [address] [place] [address] Assigned Musculoskeletal Provider 08/30/21 03/17/22 Erica Farrell APRN ROBOTICS SOFTWARE ENGINEER [address] [facility] [address] [place], [place] 85[address] Nurse Practitioner Cardiovascular Disease 09/09/21 [facility] [address] [place] [phone] Pharmacist Pharmacist 09/24/21 09/29/21 Tavia Wyatt MD [address] [place] [address] Assigned Surgical Provider 11/29/21 05/07/22 [facility] [address] [place] [address] Assigned MTM Pharmacist 01/02/22 Rich Barrett MD [address] [place] [address] Physician Ophthalmology 01/21/22 Neil Kent MD 500 [place] [address] Dermatology 02/24/22 Roney Story DPM 77[address] [facility] 300 [place], [place] 989227 Assigned Musculoskeletal Provider 03/20/22 08/13/22 Erica Farrell APRN ROBOTICS SOFTWARE ENGINEER 1700 [place] [address] Assigned Heart and Vascular Provider 04/03/22 04/16/22 Diana Desir [facility] [address] [place] [address] Assigned [place] Pharmacist 04/07/22 Jelena David OD [address] [facility] [place] [address] Assigned Surgical Provider 05/08/22 10/08/22 Galo Burrell MD Assigned Heart and Vascular Provider 04/17/22 06/11/22 Livan Sharif MD [address] [place] [address] Cardiovascular Disease 05/14/22 Livan Sharif MD [address] [place] [address] Assigned Heart and Vascular Provider 06/12/22 07/23/22 Catherine Cm MD [address] [place] 983575 Cardiovascular Disease 07/21/22 Valery Veronica PAUcheC 909 [place] [address] Physician Animal Control Officer Dermatology 07/21/22 Catherine Cm MD [address] [place] [address] Assigned Heart and Vascular Provider 07/24/22 11/05/22 Johnny Murillo MD [facility] [place][note 2][address] 119[address] Assigned Musculoskeletal Provider 08/14/22 10/08/22 Brea Quinn APRN ROBOTICS SOFTWARE ENGINEER [address] [place] [address] 442195 Nurse Practitioner Dermatology 09/21/22 Brea Quinn APRN ROBOTICS SOFTWARE ENGINEER [address] [place] [address] [facility] [place] [address] Assigned Surgical Provider 10/09/22 05/01/24 [place] [address] [address] Assigned Musculoskeletal Provider 10/09/22 05/01/24 Livan Sharif MD [address] [facility] [address] [place] [address] Assigned Heart and Vascular Provider 11/06/22 11/12/22 Catherine Cm MD [address] [facility] [address] [place] [address] Assigned Heart and Vascular Provider 11/13/22 05/27/23 Sydnie Martinez RN Personal Advocate & Liaison (PAL) Family Medicine 03/28/23 07/31/23 Alfonso Renteria MD 5775 [facility] 200 [place], [place] 230656 Assigned Neuroscience Provider 04/02/23 09/29/24 Cheng Todd PA-C [address] [place] [address] [phone] Assigned PCP 04/30/23 07/15/23 Radha Lomeli APRN ROBOTICS SOFTWARE ENGINEER 6[address] [facility] [address] [place], [place] 0[address] Assigned Heart and Vascular Provider 05/28/23 Jelena David OD [address] [facility] [address] [place] [phone] Ophthalmology 06/15/23 Pao Joseph, VJ Personal Advocate & Liaison (PAL) Nurse 08/01/23 11/07/23 Esha Grimm PA-C [address] [place] [address] Assigned PCP 07/16/23 Valery Veronica PA-C [address] [place] [address] 290655 Physician Animal Control Officer Dermatology 09/19/23 Rey Tay MD [address] [place] [address] 628585 Gastroenterology 09/20/23 Rocky Zepeda DO [address] [place] [address] 528085 Physician Gastroenterology 09/20/23 Philip Dumont MD [address] [place] [address] 984825 Physician Ophthalmology 09/22/23 Meredith Carrera PA-C 909 [place] [address] Assigned Gastroenterology Provider 11/01/23 Neil Kent MD [address] [place] [address] Dermatology 11/02/23 [place] [address] [place] [address] 515887 Neurological Surgery 12/26/23 Audrey Waite PA-C 500 [place] [address] Physician Animal Control Officer Dermatology 02/28/24 Valery Veronica PA-C [address] [place] [address] 369139 Physician Animal Control Officer Dermatology 04/10/24 Herminia Hatch MD [address] [place] [address] [phone] Assigned Rheumatology Provider 07/02/24 Jelena David OD [address] [place] [address] [place] [address] Ophthalmology 08/30/24 [place] [address] [place] [address] Assigned Neuroscience Provider 09/30/24 Maru Man PA-C [address] [place] [address] Physician Animal Control Officer Dermatology 10/03/24 documented as of this encounter
--- OUTSIDE RECORDS SUMMARY | 2024-10-18 19:25 | XMS_ITS | Encounter Summary ---
Author Organization [place] Address [address] [place] [address] Care Team Providers Care Pallet Repairer Name Role Phone Lita Oseguera Unavailable Unavailable Marija Edgar APRN HAZARDOUS WASTE REMOVER Primary Care Provider + Marija Edgar APRN HAZARDOUS WASTE REMOVER Unavailable [phone] Mynor Broussard MD Unavailable [phone] Keisha Dotson MD Unavailable Galo Burrell MD Unavailable Unavailable [place] Desir [facility] Unavailable Rain Galaviz PA-C Unavailable Summer Lara MD Unavailable [phone] Tavia Wyatt MD Unavailable Johnny Murillo MD Unavailable [phone] Erica Farrell APRN HAZARDOUS WASTE REMOVER Unavailable Teresita Bean [facility] Unavailable [phone] Tavia Wyatt MD Unavailable [place] Desir [facility] Unavailable Rich Barrett MD Unavailable [phone] Neil Kent MD Unavailable Roney Story DPM Unavailable Erica Farrell COTTON SAMPLER HAZARDOUS WASTE REMOVER Unavailable [place] Desir [facility] Unavailable [phone] Jelena David OD Unavailable [phone] Galo Burrell MD Unavailable Unavailable Livan Sharif MD Unavailable + Livan Sharif MD Unavailable + Catherine Cm MD Unavailable + Valery Veronica PA-C Unavailable [phone] Catherine Cm MD Unavailable + Johnny Murillo MD Unavailable [phone] Brea Quinn COTTON SAMPLER HAZARDOUS WASTE REMOVER Unavailable [phone] Brea Quinn COTTON SAMPLER HAZARDOUS WASTE REMOVER Unavailable [phone] Jose Francisco Johnson MD Unavailable Livan Sharif MD Unavailable + IsCatherine hobbs MD Unavailable + Sydnie Martinez RN Unavailable Unavailable Alfonso Renteria MD Unavailable Esha Grimm-C Primary Care Provider Cheng Todd PA-C Unavailable Radha Lomeli COTTON SAMPLER HAZARDOUS WASTE REMOVER Unavailable [phone] Jelena David OD Unavailable [phone] Pao Joseph RN Unavailable Unavailable Esha Grimm-C Unavailable [phone] JeremíasValery damon PA-C Unavailable [phone] Rey Tay MD Unavailable Rocky Zepeda DO Unavailable Philip Dumont MD Unavailable [phone] Meredith Carrera-C Unavailable [phone] Neil Kent MD Unavailable Juan Pablo Emmanuel MD Unavailable [phone] Audrey Waite PA-C Unavailable [phone] Valery Veronica-C Unavailable [phone] Herminia Hatch MD Unavailable Jelena David OD Unavailable Juan Pbalo Emmanuel MD Unavailable [phone] Maru Man PA-C Unavailable [phone] Encounter Details Date Type Department Care Team (Late st Contact Info) Description 06/03/2021 [facility] [address] [address] [facility] 30[address] [place] [address] Social History Tobacco Use Types Packs/Day Years [...] week 08/07/2020 How often do you attend caro center or gnosticism services? More than 4 times [...] Answer Date Recorded PHQ-2 Score 0 [facility]02[facility] [...] in a prison (including now)? No 08/11/2020 [place] Depression Scale Answer Date Recorded [place] Depression Score 5 01/14/2021 Last EPDS Self Harm Result Not on file 01/14 Education Answer Date Recorded What is the highest level of school you have completed or the highest degree you have received? 12th grade 08/07/2020 Comments No Sex and Gender Information Value Date Recorded Sex Assigned at Female 03/02/2021 5:45 PM CDT Legal Sex Female 4:13 AM CHIEF ANALYTICS OFFICER Gender Identity Female 03/02/2021 5:45 PM [...] Upcoming Encounters Date Type Department Care Team ([facility] st Contact Info) Description 10/22/2024 11:00 AM CDT Office Visit [facility] [address] [phone] Maru Man PA-C [address] [address] 10/23/2024 PRE VISIT [facility] Neurology [facility] [address] [facility], [address] [place] [phone] Johnny Penn MD [address] [place] 248395 Previsit 10/23/2024 9:30 AM CDT Office Visit [facility] Neurology [facility] [address] [place] [address], [address] [place] [phone] [place] [address] [place] 509[address] Johnny Penn MD [address] [place] [address] 10/24/2024 4:00 PM CDT Office Visit [facility] [address] [facility] [address] [place] [phone] Jelena David, [address] [facility] [place] [address] 10/31/2024 9:15 AM CDT Virtual Visit [facility] Gastroenterology [address] 4th [place] [phone] Meredith Carrera PA-C [address] [place] [address] 683585 12/20/2024 2:30 PM CDT Office Visit [address] [phone] Esha Grimm PA-C [address] [place] [address] documented as of this encounter Visit Diagnoses Not on filedocumented in this encounter Additional Health Concerns Infection Onset Date Last Indicated Resolved Time Rule Out COVID-19 07/13/2021 07/13/2021 07/14/2021 3:04 PM CHIEF ANALYTICS OFFICER Rule Out COVID-19 07/18/2021 07/18/2021 07/20/2021 1:56 PM CHIEF ANALYTICS OFFICER COVID-19 07/18/2021 07/18/2021 08/08/2021 11:3 9 PM CHIEF ANALYTICS OFFICER Rule Out COVID-19 12/18/2021 12/18/2021 12/19/2021 11:34 AM CDT Rule Out COVID-19 02/24/2022 02/24/2022 02/25/2022 1:08 PM CDT Rule Out COVID-19 04/26/2022 04/26/2022 04/26/2022 6:47 AM CDT Rule Out COVID-19 05/17/2022 05/17/2022 05/17/2022 10:20 PM CHIEF ANALYTICS OFFICER Rule Out COVID-19 06/09/2022 06/09/2022 06/09/2022 9:35 AM CHIEF ANALYTICS OFFICER COVID-19 06/09/2022 06/09/2022 06/30/2022 11:4 1 PM CHIEF ANALYTICS OFFICER Rule Out COVID-19 11/10/2022 11/10/2022 11/11/2022 [...] documented as of this encounter Care Teams Pallet Repairer Relationship Specialty Start Date End Date Marija Edgar APRN HAZARDOUS WASTE REMOVER PCP - General Nurse Practitioner 04/30/20 04/14/23 Esha Grimm PA-C [address] [place] [phone] PCP - General Family Medicine 05/04/23 Lita Oseguera Personal Advocate & Liaison (PAL) 02/28/20 03/27/23 Marija Edgar APRN HAZARDOUS WASTE REMOVER Assigned PCP 06/08/20 04/29/23 Mynor Broussard MD 6363 [facility] [address] [address] Assigned Surgical Provider 06/01/20 11/28/21 Keisha Dotson MD 909 [place], [place] 892125 Assigned Neuroscience Provider 06/04/20 04/01/23 Galo Burrell MD Assigned Heart and Vascular Provider 10/05/20 04/02/22 [facility] 3033 [place] [address] Pharmacist Pharmacist 04/17/21 Rain Galaviz PA-C [address] [facility] [address] [facility] [place] [address] Physician Dog And Cat Food Cook Dermatology 04/28/21 Summer Lara MD [address] [place] [address] Assigned OBGYN Provider 05/31/21 Tavia Wyatt MD [address] [place] [address] Dermatology 07/14/21 Johnny Murillo MD [address] [place] [address] Assigned Musculoskeletal Provider 08/30/21 03/17/22 Erica Farrell APRN HAZARDOUS WASTE REMOVER 6[address] [facility] [address] [place], [place] [address] Nurse Practitioner Cardiovascular Disease 09/09/21 Teresita Bean [facility] [address] [place], [place] [phone] Pharmacist Pharmacist 09/24/21 09/29/21 Tavia Wyatt MD [address] [place], [place] 168730 Assigned Surgical Provider 11/29/21 05/07/22 [facility] [address] [place] [address] Assigned MTM Pharmacist 01/02/22 Rich Barrett MD [address] [place] [address] Physician Ophthalmology 01/21/22 Neil Kent MD 500 [place] [address] Dermatology 02/24/22 Roney Story DPM [address] [facility] [address] [place] [address] Assigned Musculoskeletal Provider 03/20/22 08/13/22 Erica Farrell APRN HAZARDOUS WASTE REMOVER 1700 [place] [address] Assigned Heart and Vascular Provider 04/03/22 04/16/22 Diana Desir, [facility] 30[address] [place] [address] Assigned MTM Pharmacist 04/07/22 Jelena David OD [address] [facility] [place] [address] Assigned Surgical Provider 05/08/22 10/08/22 Galo Burrell MD Assigned Heart and Vascular Provider 04/17/22 06/11/22 Livan Sharif MD [address] [place] [address] Cardiovascular Disease 05/14/22 Livan Sharif MD [address] [place] 781405 Assigned Heart and Vascular Provider 06/12/22 07/23/22 Catherine Cm MD [address] [place] 156945 Cardiovascular Disease 07/21/22 Valery Veronica, PA-C 9 [place] [address] Physician Dog And Cat Food Cook Dermatology 07/21/22 Catherine Cm MD [address] [place] [address] [place] [address] Assigned Heart and Vascular Provider 07/24/22 11/05/22 Johnny Murillo MD [address] [place] [address] Assigned Musculoskeletal Provider 08/14/22 10/08/22 Brea Quinn APRN HAZARDOUS WASTE REMOVER [address] [place] [address] Nurse Practitioner Dermatology 09/21/22 Brea Quinn APRN HAZARDOUS WASTE REMOVER [address] [place] [address] Assigned Surgical Provider 10/09/22 05/01/24 [place] [address] [address] Assigned Musculoskeletal Provider 10/09/22 05/01/24 Livan Sharif MD [address] [place] [address] [place] [address] Assigned Heart and Vascular Provider 11/06/22 11/12/22 Catherine Cm MD [address] [place] [address] Assigned Heart and Vascular Provider 11/13/22 05/27/23 Sydnie Martinez, RN Personal Advocate & Liaison (PAL) Family Medicine 03/28/23 07/31/23 Alfonso Renteria MD 5775 [facility] 200 [place], [place] [address] Assigned Neuroscience Provider 04/02/23 09/29/24 Cheng Todd PA-C [address] [place] [address] [phone] Assigned PCP 04/30/23 07/15/23 aRdha Lomeli APRN HAZARDOUS WASTE REMOVER [address] [place] [address] Assigned Heart and Vascular Provider 05/28/23 Jelena David OD [address] [facility] [place] [address] Ophthalmology 06/15/23 Pao Joseph, VJ Personal Advocate & Liaison (PAL) Nurse 08/01/23 11/07/23 Esha Grimm PA-C [address] [place] [phone] Assigned PCP 07/16/23 Valery Veronica PA-C [address] [place] [address] 702905 Physician Dog And Cat Food Cook Dermatology 09/19/23 Rey Tay MD [address] [place] [address] MD Gastroenterology 09/20/23 Rocky Zepeda DO [address] [place] [address] Physician Gastroenterology 09/20/23 Philip Dumont MD [address] [place] [address] Physician Ophthalmology 09/22/23 Meredith Carrera PA-C [address] [place] [address] 354565 Assigned Gastroenterology Provider 11/01/23 Neil Kent MD [address] [place] [address] MD Dermatology 11/02/23 [place] [address] [facility] [place] [address] Neurological Surgery 12/26/23 Audrey Waite PA-C [address] [place] [address] Physician Dog And Cat Food Cook Dermatology 02/28/24 Valery Veronica PA-C 256324 [address], [place] [address] Physician Dog And Cat Food Cook Dermatology 04/10/24 Herminia Hatch MD [facility] [place] [address] Assigned Rheumatology Provider 07/02/24 Jelena David OD [address] [facility] [place] [address] Ophthalmology 08/30/24 [place] [address] [place], [place] [address] Assigned Neuroscience Provider 09/30/24 Maru Man PA-C [address] [place] [address] Physician Dog And Cat Food Cook Dermatology 10/03/24 documented as of this encounter
--- OUTSIDE RECORDS SUMMARY | 2024-10-18 19:26 | XMS_ITS | Encounter Summary ---
Author Organization [place] Address [address] [place] [address] Care Team Providers Care Artist Woodblock Name Role Phone Lita Oseguera Unavailable Unavailable Marija Edgar APRN COUNTY SUPERVISOR Primary Care Provider + Marija Edgar APRN COUNTY SUPERVISOR Unavailable [phone] Keisha Dotson MD Unavailable Diana Desir [facility] Unavailable Rain Galaviz PA-C Unavailable Tavia Wyatt MD Unavailable Erica Farrell APRN COUNTY SUPERVISOR Unavailable Rich Barrett MD Unavailable [phone] Neil Kent MD Unavailable Diana Desir [facility] Unavailable Livan Sharif MD Unavailable Catherine Cm MD Unavailable + Valery Veronica PA-C Unavailable Brea Quinn FOUNDATION DIGGER COUNTY SUPERVISOR Unavailable [phone] Brea Quinn FOUNDATION DIGGER COUNTY SUPERVISOR Unavailable Jose Francisco Johnson MD Unavailable Livan Sharif MD Unavailable Catherine Cm MD Unavailable + Sydnie Martinez RN Unavailable Unavailable Alfonso Renteria MD Unavailable [phone] Esha Grimm PA-C Primary Care Provider Cheng Todd PA-C Unavailable ArmaniRadha APRN COUNTY SUPERVISOR Unavailable Jelena David OD Unavailable Pao Joseph RN Unavailable Unavailable Esha Grimm PA-C Unavailable [phone] Valery Veronica PA-C Unavailable [phone] Rey Tay MD Unavailable Rocky Zepeda DO Unavailable Philip Dumont MD Unavailable [phone] Meredith Carrera PA-C Unavailable Neil Kent MD Unavailable Juan Pablo Emmanuel MD Unavailable Audrey Waite PA-C Unavailable Valery Veronica PA-C Unavailable [phone] Herminia Hatch MD Unavailable Jelena David OD Unavailable Juan Pablo Emmanuel MD Unavailable [phone] Maru Man PA-C Unavailable [phone] Encounter Details Date Type Department Care Team (Late st Contact Info) Description 11/10/2022 [facility] [address] [address] Lauren Claudio PA-C [address] [place], [place] [phone] Social History Tobacco Use Types Packs/Day Years [...] How often do you attend jew or protestant serv ices? Never 09/22/2021 Do [...] Answer Date Recorded PHQ-2 Score 1 10/11/2022 [facility] - Occupational [...] in a prison (including now)? No 09/22/2021 [place] Depression Scale Answer Date Recorded [place] Depression Score 5 01/14/2021 Last EPDS Self Harm Result Not on file 01/14 Education Answer Date Recorded What is the highest level of school you have completed or the highest degree you have received? 12th grade 08/07/2020 Comments No Sex and Gender Information Value Date Recorded Sex Assigned at Female 03/02/2021 5:45 PM CDT Legal Sex Female 4:13 AM CORPORATE ASSOCIATE ATTORNEY Gender Identity Female 03/02/2021 5:45 PM [...] Description 10/22/2024 11:00 AM CDT Office Visit [address] [phone] Maru Man PA-C [address] [place] [address] 270870 10/23/2024 PRE VISIT [facility] Neurology [address] [address] Johnny Penn MD [address] [place] [place] [address] Previsit 10/23/2024 9:30 AM CDT Office Visit [facility] Neurology [address] [phone] [place] [address] [place] 825817 Johnny Penn MD [address] [place] 259[address] 10/24/2024 4:00 PM CDT Office Visit [facility] Monserrat [address] [place] [phone] Jelena David, SONJA [address] [facility] [place] [address] 10/31/2024 9:15 AM CDT Virtual Visit [facility] Gastroenterology [address] 4th [place] [phone] Meredith Carrera PA-C [address] [place] [address] 353005 12/20/2024 2:30 PM CDT Office Visit [facility] [address] [place] [phone] Esha Grimm PA-C [address] [place] [address] documented as of this encounter [...] documented as of this encounter Care Teams Artist Woodblock Relationship Specialty Start Date End Date Marija Edgar APRN COUNTY SUPERVISOR PCP - General Nurse Practitioner 04/30/20 04/14/23 Esha Grimm PA-C [address] [place] [address] PCP - General Family Medicine 05/04/23 Lita Oseguera Personal Advocate & Liaison (PAL) 02/28/20 03/27/23 Marija Edgar APRN COUNTY SUPERVISOR Assigned PCP 06/08/20 04/29/23 Keisha Dotson MD [address] [place] [address] Assigned Neuroscience Provider 06/04/20 04/01/23 [facility] 3033 [place], [place] 597076 Pharmacist Pharmacist 04/17/21 Rain Galaviz PA-C [address] [place] [address] [address] [facility] [place] [address] Physician Library Manager Dermatology 04/28/21 Tavia Wyatt MD [address] [place] [address] [address] [facility] [place] [address] Dermatology 07/14/21 Erica Farrell APRN COUNTY SUPERVISOR [address] [place] [address] Nurse Practitioner Cardiovascular Disease 09/09/21 Rich Barrett MD [address] [address] Physician Ophthalmology 01/21/22 Neil Kent MD 500 [place] [address] Dermatology 02/24/22 [facility] 3033 [place] [address] Assigned MTM Pharmacist 04/07/22 Livan Sharif MD [address] [address] Cardiovascular Disease 05/14/22 Catherine Cm MD [address] [facility] [address] [address] Cardiovascular Disease 07/21/22 Valery Veronica, PA-C 909 [place], [place] 6719[address] Physician Library Manager Dermatology 07/21/22 Brea Quinn APRN COUNTY SUPERVISOR [address] [place] [address] Nurse Practitioner Dermatology 09/21/22 Brea Quinn APRN COUNTY SUPERVISOR [address] [place] [address] [facility] [place] [place] [address] Assigned Surgical Provider 10/09/22 05/01/24 [place] [address] [place] [address] Assigned Musculoskeletal Provider 10/09/22 05/01/24 Livan Sharif MD [address] [place] [address] Assigned Heart and Vascular Provider 11/06/22 11/12/22 Catherine Cm MD [address] [place], [place] [address] Assigned Heart and Vascular Provider 11/13/22 05/27/23 Sydnie Martinez RN Personal Advocate & Liaison (PAL) Family Medicine 03/28/23 07/31/23 Alfonso Renteria MD [address]75 [facility] 200 [place] [address] Assigned Neuroscience Provider 04/02/23 09/29/24 Cheng Todd PA-C [address] [place] [address] [id number] Assigned PCP 04/30/23 07/15/23 Radha Lomeli, ARLENE COUNTY SUPERVISOR [address] [place] [address] Assigned Heart and Vascular Provider 05/28/23 Jelena David OD [address] [facility] [place] [address] Ophthalmology 06/15/23 Pao Joseph RN Personal Advocate & Liaison (PAL) Nurse 08/01/23 11/07/23 Esha Grimm PA-C [address] [place] [address] Assigned PCP 07/16/23 Valery Veronica PA-C [address] [place] [address] Physician Library Manager Dermatology 09/19/23 Rey Tay MD [address] [place] [address] MD Gastroenterology 09/20/23 Rocky Zepeda DO [address] [place] [address] 829325 Physician Gastroenterology 09/20/23 Philip Dumont MD [address] [place] [address] 508905 Physician Ophthalmology 09/22/23 Meredith Carrera PA-C [address] [place] [address] 147895 Assigned Gastroenterology Provider 11/01/23 Neil Kent MD [address] [address] Dermatology 11/02/23 [place] [address] [facility] [place], [place] [address] Neurological Surgery 12/26/23 Audrey Waite PA-C [address] [place] [address] Physician Library Manager Dermatology 02/28/24 Valery Veronica PA-C [address] [place] [address] Physician Library Manager Dermatology 04/10/24 Herminia Hatch MD [facility]5 [place] [address] Assigned Rheumatology Provider 07/02/24 Jelena David OD [address] [facility] [place] [address] Ophthalmology 08/30/24 [place] [address] [place] [address] Assigned Neuroscience Provider 09/30/24 Maru Man PA-C [address] [place] [address] Physician Library Manager Dermatology 10/03/24 documented as of this encounter
--- OUTSIDE RECORDS SUMMARY | 2024-10-18 19:26 | XMS_ITS | Encounter Summary ---
Author Organization [facility] Address [address] [place] [address] Care Team Providers Care Thread Reeler Name Role Phone Lita Oseguera Unavailable Unavailable Marija Edgar APRN CHOCOLATIER Primary Care Provider + Marija Edgar APRN CHOCOLATIER Unavailable Mynor Broussard MD Unavailable [phone] Keisha Dotson MD Unavailable Galo Burrell MD Unavailable Unavailable Diana Desir [facility] Unavailable Rain Galaviz PA-C Unavailable Summer Lara MD Unavailable [phone] Tavia Wyatt MD Unavailable Johnny Murillo MD Unavailable Erica Farrell APRN CHOCOLATIER Unavailable Teresita Bean [facility] Unavailable Tavia Wyatt MD Unavailable Diana Desir [facility] Unavailable Rich Barrett MD Unavailable [phone] Neil Kent MD Unavailable Roney Story DPM Unavailable Erica Farrell CAN CAPPER CHOCOLATIER Unavailable Diana Desir [facility] Unavailable [phone] Jelena David OD Unavailable Galo Burrell MD Unavailable Unavailable Livan Sharif MD Unavailable + Livan Sharif MD Unavailable + Catherine Cm MD Unavailable + Valery Veronica PA-C Unavailable [phone] Catherine Cm MD Unavailable + Johnny Murillo MD Unavailable [phone] Brea Quinn CAN CAPPER CHOCOLATIER Unavailable [phone] Brea Quinn CAN CAPPER CHOCOLATIER Unavailable [phone] Jose Francisco Johnson MD Unavailable Livan Sharif MD Unavailable + IsCatherine hobbs MD Unavailable + Sydnie [place] RN Unavailable Unavailable Alfonso Renteria MD Unavailable Esha Grimm-C Primary Care Provider Cheng Todd PA-C Unavailable Radha Lomeli CAN CAPPER CHOCOLATIER Unavailable [phone] Jelena David OD Unavailable Pao Joseph RN Unavailable Unavailable Esha Grimm-C Unavailable [phone] JeremíasValery damon PA-C Unavailable [phone] Rey Tay MD Unavailable Rocky Zepeda DO Unavailable Philip Dumont MD Unavailable [phone] Meredith Carrera-C Unavailable [phone] Neil Kent MD Unavailable Juan Pablo Emmanuel MD Unavailable [phone] Audrey Waite PA-C Unavailable [phone] Valery Veronica-C Unavailable [phone] Herminia Hatch MD Unavailable Jelena David OD Unavailable Juan Pablo Emmanuel MD Unavailable [phone] Maru Man PA-C Unavailable [phone] Encounter Details Date Type Department Care Team (Late st Contact Info) Description 06/25/2021 [facility] [address] [address] [facility] 30[address] [place] [address] Psoriasis (Primary Dx) Social History Tobacco Use [...] do you attend chur or confucianism services? More than 4 times [...] Answer Date Recorded PHQ-2 Score 0 04/02/2021 [facility]at ion[facility] Health - Occupational Stress [...] in a intermediate (including now)? No 08/11/2020 [place] Depression Scale Answer Date Recorded [place] Depression Score 5 01/14/2021 Last EPDS Self Harm Result Not on file 01/14 Education Answer Date Recorded What is the highest level of school you have completed or the highest degree you have received? 12th grade 08/07/2020 Comments No Sex and Gender Information Value Date Recorded Sex Assigned at Female 03/02/2021 5:45 PM CDT Legal Sex Female 4:13 AM HEALTH SAFETY COORDINATOR Gender Identity Female 03/02/2021 5:45 PM CDT Sexual Orientation Straight 02/28/2020 12 :51 AM CDT COVID-19 Exposure Response Date Recorded In the last month, have you been in contact with someone who was confirmed or suspected to have Coronavirus / COVID-19? No / Unsure 06/26/2021 8:28 AM HEALTH SAFETY COORDINATOR documented as of this encounter Miscellaneous Notes * Telephone Encounter - Diana Desir [facility] - 06/26/2021 9:53 AM CST Discussed with PCP and verbal approval for betamethasone cream. Diana Desir, PharmD Medication Therapy Management Provider, [facility] Pager: [phone] TH SAFETY COORDINATOR documented in this encounter Plan of Treatment Upcoming Encounters Date Type Department Care Team (Late st Contact Info) Description 10/22/2024 11:00 AM CDT Office Visit [facility] [address] [phone] Maru Man PA-C [address] 5776[address] 10/23/2024 PRE VISIT [facility] Neurology [address] [place] [phone] Johnny Penn MD [address] [place] 06[address]35 Previsit 10/23/2024 9:30 AM CDT Office Visit [facility] Neurology [facility] - [address], [address] [place] [address] [place] [address] [place] 87[address] Johnny Penn MD [address] [place] 787745 10/24/2024 4:00 PM CDT Office Visit [facility] Monserrat [address] [facility] [address] [place] [phone] Jelena David, [address] [facility] [place] [address] 10/31/2024 9:15 AM CDT Virtual Visit [facility] [address] [address] Meredith Carrera PA-C 909 [place] [address] 12/20/2024 2:30 PM CDT Office Visit [facility] [address] [place] [address] Esha Grimm PA-C [address] [place] [address] documented as of this encounter Visit Diagnoses Diagnosis Psoriasis- Primary Other psoriasis documented in this encounter Additional Health Concerns Infection Onset Date Last Indicated Resolved Time Rule Out COVID-19 07/13/2021 07/13/2021 07/14/2021 3:04 PM HEALTH SAFETY COORDINATOR Rule Out COVID-19 07/18/2021 07/18/2021 07/20/2021 1:56 PM HEALTH SAFETY COORDINATOR COVID-19 07/18/2021 07/18/2021 08/08/2021 11:3 9 PM HEALTH SAFETY COORDINATOR Rule Out COVID-19 12/18/2021 12/18/2021 12/19/2021 11:34 AM CDT Rule Out COVID-19 02/24/2022 02/24/2022 02/25/2022 1:08 PM CDT Rule Out COVID-19 04/26/2022 04/26/2022 04/26/2022 6:47 AM CDT Rule Out COVID-19 05/17/2022 05/17/2022 05/17/2022 10:20 PM HEALTH SAFETY COORDINATOR Rule Out COVID-19 06/09/2022 06/09/2022 06/09/2022 9:35 AM HEALTH SAFETY COORDINATOR COVID-19 06/09/2022 06/09/2022 06/30/2022 11:4 1 PM HEALTH SAFETY COORDINATOR Rule Out COVID-19 11/10/2022 11/10/2022 11/11/2022 [...] as of this encounter Care Teams Thread Reeler Relationship Specialty Start Date End Date Marija Edgar APRN CHOCOLATIER PCP - General Nurse Practitioner 04/30/20 04/14/23 Esha Grimm PA-C [address] [place] [phone] PCP - General Family Medicine 05/04/23 Lita Oseguera Personal Advocate & Liaison (PAL) 02/28/20 03/27/23 Marija Edgar APRN CHOCOLATIER Assigned PCP 06/08/20 04/29/23 Mynor Broussard MD [address] [address] Assigned Surgical Provider 06/01/20 11/28/21 Keisha Dotson MD 909 [place], [place] 29[address]15 Assigned Neuroscience Provider 06/04/20 04/01/23 Galo Burrell MD Assigned Heart and Vascular Provider 10/05/20 04/02/22 [facility] 3033 [place] [address] Pharmacist Pharmacist 04/17/21 Rain Galaviz PA-C [address] [facility] [place] [address] Physician Logging Contractor Dermatology 04/28/21 Summer Lara MD [address] [place] [address] Assigned OBGYN Provider 05/31/21 2 Tavia Wyatt MD [address] [place] [address] Dermatology 07/14/21 Johnny Murillo MD [facility] [address] [place] [address] Assigned Musculoskeletal Provider 08/30/21 03/17/22 Erica Farrell APRN CHOCOLATIER 6[address] [facility] [address] [place] [address] Nurse Practitioner Cardiovascular Disease 09/09/21 Teresita Bean [facility] [address] [place] [address] Pharmacist Pharmacist 09/24/21 09/29/21 Tavia Wyatt MD [address] [place] [address] Assigned Surgical Provider 11/29/21 05/07/22 [facility] [place] [address] Assigned MTM Pharmacist 01/02/22 Rich Barrett MD [address] [place] [address] Physician Ophthalmology 01/21/22 Neil Kent MD 500 [place] [address] Dermatology 02/24/22 Roney Story DPM [address] [facility] [address] [place] [address] Assigned Musculoskeletal Provider 03/20/22 08/13/22 Erica Farrell APRN CHOCOLATIER 1700 [place] [address] Assigned Heart and Vascular Provider 04/03/22 04/16/22 [facility] [address] [place] [address] Assigned MTM Pharmacist 04/07/22 Jelena David OD [address] [place] [address] Assigned Surgical Provider 05/08/22 10/08/22 Galo Burrell MD Assigned Heart and Vascular Provider 04/17/22 06/11/22 Livan Sharif MD 6405 [facility] [address] [place] [address] Cardiovascular Disease 05/14/22 Livan Sharif MD [address] [facility] [address] [place] [address] Assigned Heart and Vascular Provider 06/12/22 07/23/22 Catherine Cm MD [address] [place] [place] [address]84300 [place] [address] Cardiovascular Disease 07/21/22 Valery Veronica, PAUcheC 9 [place], [place] [address] Physician Logging Contractor Dermatology 07/21/22 Catherine Cm MD [address] 0584300 [place] 851065 Assigned Heart and Vascular Provider 07/24/22 11/05/22 [place] [address] [place] [address]1914 Assigned Musculoskeletal Provider 08/14/22 10/08/22 Brea Quinn APRN CHOCOLATIER [address] [place] [address] 030615 Nurse Practitioner Dermatology 09/21/22 Brea Quinn APRN CHOCOLATIER [address] [place] [address] [place] [id number] Assigned Surgical Provider 10/09/22 05/01/24 [place] [address] [place] [address] [place] 659937 Assigned Musculoskeletal Provider 10/09/22 05/01/24 Livan Sharif MD [address] [facility] [address] [place], [place] 836175 Assigned Heart and Vascular Provider 11/06/22 11/12/22 Catherine Cm MD [address] [place] [address] Assigned Heart and Vascular Provider 11/13/22 05/27/23 Sydnie Martinez RN Personal Advocate & Liaison (PAL) Family Medicine 03/28/23 07/31/23 Alfonso Renteria MD 5775 [facility] 200 [place] [address] Assigned Neuroscience Provider 04/02/23 09/29/24 Cheng Todd PA-C [address] [place] [address] [id number] Assigned PCP 04/30/23 07/15/23 Radha Lomeli, ARLENE CHOCOLATIER [address] [place] [address] Assigned Heart and Vascular Provider 05/28/23 Jelena David OD [address] [place] [address] Ophthalmology 06/15/23 Pao Joseph, VJ Personal Advocate & Liaison (PAL) Nurse 08/01/23 11/07/23 Esha Grimm PAUcheC [address] [place] [phone] Assigned PCP 07/16/23 Valery Veronica PA-C 9 [place] [address] Physician Logging Contractor Dermatology 09/19/23 Rey Tay MD [address] [place] [address] 379985 MD Gastroenterology 09/20/23 Rocky Zepeda DO [address] [place] [address] 942155 Physician Gastroenterology 09/20/23 Philip Dumont MD [address] [place] [address] 772105 Physician Ophthalmology 09/22/23 Meredith Carrera PA-C [address] [place] [address] 649775 Assigned Gastroenterology Provider 11/01/23 Neil Kent MD [address] [address] Dermatology 11/02/23 [place] [address] [address] Neurological Surgery 12/26/23 Audrey Waite PA-C [address] [place] [address] Physician Logging Contractor Dermatology 02/28/24 Valery Veronica PA-C [address] [place] [address] Physician Logging Contractor Dermatology 04/10/24 Herminia Hatch MD [facility]5 [place] [address] Assigned Rheumatology Provider 07/02/24 Jelena David OD [address] [place] [address] Ophthalmology 08/30/24 [place] [address] [place] [address] Assigned Neuroscience Provider 09/30/24 Maru Man PA-C [address] [place] [address] Physician Logging Contractor Dermatology 10/03/24 documented as of this encounter
--- OUTSIDE RECORDS SUMMARY | 2024-10-18 19:26 | XMS_ITS | Encounter Summary ---
Author Organization [facility] Address [address] [place] [address] Care Team Providers Care Homicide Investigator Name Role Phone Lita Oseguera Unavailable Unavailable Marija Edgar APRN GROUNDS MAINTENANCE SUPERVISOR Primary Care Provider + Marija Edgar APRN GROUNDS MAINTENANCE SUPERVISOR Unavailable [phone] Keisha Dotson MD Unavailable Diana Desir [facility] Unavailable [phone] Rain Galaviz PA-C Unavailable Tavia Wyatt MD Unavailable Erica Farrell APRN GROUNDS MAINTENANCE SUPERVISOR Unavailable Rich Barrett MD Unavailable [phone] Neil Kent MD Unavailable Diana Desir [facility] Unavailable [phone] Livan Sharif MD Unavailable Catherine Cm MD Unavailable + Valery Veronica PA-C Unavailable Catherine Cm MD Unavailable + Brea Quinn RECREATION INSTRUCTOR GROUNDS MAINTENANCE SUPERVISOR Unavailable [phone] Brea Quinn RECREATION INSTRUCTOR GROUNDS MAINTENANCE SUPERVISOR Unavailable [phone] Jsoe Francisco Johnson MD Unavailable Livan Sharif MD Unavailable Catherine Cm MD Unavailable + Sydnie Martinez RN Unavailable Unavailable Alfonso Renteria MD Unavailable sEha Grimm PA-C Primary Care Provider Cheng Todd PA-C Unavailable [phone] Radha Lomeli RECREATION INSTRUCTOR GROUNDS MAINTENANCE SUPERVISOR Unavailable [phone] Jelena David OD Unavailable Pao Joseph RN Unavailable Unavailable Esha Grimm PA-C Unavailable [phone] Valery Veronica PA-C Unavailable Rey Tay MD Unavailable Rocky Zepeda DO Unavailable Philip Dumont MD Unavailable Meredith Carrera PA-C Unavailable [phone] Neil Kent MD Unavailable Juan Pablo Emmanuel MD Unavailable [phone] Audrey Waite PA-C Unavailable [phone] Valery Veronica PA-C Unavailable Herminia Hatch MD Unavailable Jelena David OD Unavailable Juan Pablo Emmanuel MD Unavailable Maru Man PA-C Unavailable [phone] Encounter Details Date Type Department Care Team (Late st Contact Info) Description 10/22/2022 MyC Medical Advice [facility] [address] [place] [address] Lauren Claudio PA-C [address] [place] [address] Social History Tobacco Use Types Packs/Day Years [...] How often do you attend orthodox or protestant serv ices? Never 09/22/2021 Do [...] Answer Date Recorded PHQ-2 Score 1 10/11/2022 [facility] - Occupational Stress Questionnaire Answer Date [...] in a prison (including now)? No 09/22/2021 [place] Depression Scale Answer Date Recorded [place] Depression Score 5 01/14/2021 Last EPDS Self Harm Result Not on file 01/14 Education Answer Date Recorded What is the highest level of school you have completed or the highest degree you have received? 12th grade 08/07/2020 Comments No Sex and Gender Information Value Date Recorded Sex Assigned at Female 03/02/2021 5:45 PM CDT Legal Sex Female 4:13 AM PATENT PROSECUTION ATTORNEY Gender Identity Female 03/02/2021 5:45 PM [...] Upcoming Encounters Date Type Department Care Team ([facility] Contact Info) Description 10/22/2024 11:00 AM CDT Office Visit [address] [phone] Maru Man PA-C [address] [place] [address] 10/23/[address] [facility] Neurology [address] [phone] Johnny Penn MD [address] [place] [place] [id number] Previsit 10/23/2024 9:30 AM CDT Office Visit [facility] - [address], [address] [address] [place] [address] [place], [place] [address] Johnny Penn MD [address] [place] [place] [address] 10/24/2024 4:00 PM CDT Office Visit [facility] [place] [address] [place] [phone] Frankie Jelena Garcia, [place] [address] [facility] [place] [address] 10/31/2024 9:15 AM CDT Virtual Visit [facility] [address] 4th [place] [phone] Meredith Carrera PA-C [address] [place] [address] 949305 12/20/2024 2:30 PM CDT Office Visit [facility] [address] [place] [address] Esha Grimm PA-C [address] [place] [address] documented as of this encounter [...] documented as of this encounter Care Teams Homicide Investigator Relationship Specialty Start Date End Date Marija Edgar APRN GROUNDS MAINTENANCE SUPERVISOR PCP - General Nurse Practitioner 04/30/20 04/14/23 Esha Grimm PA-C [address] [facility] [place] [address] PCP - General Family Medicine 05/04/23 Lita Oseguera Personal Advocate & Liaison (PAL) 02/28/20 03/27/23 Marija Edgar APRN GROUNDS MAINTENANCE SUPERVISOR Assigned PCP 06/08/20 04/29/23 Keisha Dotson MD 909 [place], [place] 052915 Assigned Neuroscience Provider 06/04/20 04/01/23 Diana Desir, [facility] 3033 [place], [place] 399736 Pharmacist Pharmacist 04/17/21 Rain Galaviz PA-C [address] [place] [address] [address] [place] [address] Physician Card Grinder Helper Dermatology 04/28/21 Tavia Wyatt MD [address] [place] [address] [place] [phone] Dermatology 07/14/21 Erica Farrell APRN GROUNDS MAINTENANCE SUPERVISOR [address] [facility] [place] [address] [place] [address] Nurse Practitioner Cardiovascular Disease 09/09/21 Rcih Barrett MD [address] [place] [address] Physician Ophthalmology 01/21/22 Neil Kent MD 500 [place], [place] 818785 MD Dermatology 02/24/22 [facility] 3033 [place], [place] 602846 Assigned MTM Pharmacist 04/07/22 Livan Sharif MD [address] [place] 2168[address] Cardiovascular Disease 05/14/22 Catherine Cm MD [address] [place] 356615 Cardiovascular Disease 07/21/22 Valery Veronica, PA-C 909 [place], [place] 812905 Physician Card Grinder Helper Dermatology 07/21/22 Catherine Cm MD [address] [place] 692055 Assigned Heart and Vascular Provider 07/24/22 11/05/22 Brea Quinn APRN GROUNDS MAINTENANCE SUPERVISOR 500 [place], [place] [address]015 Nurse Practitioner Dermatology 09/21/22 Brea Quinn APRN GROUNDS MAINTENANCE SUPERVISOR [address] [place] [address] Assigned Surgical Provider 10/09/22 05/01/24 [place] [address] [facility] [address] [place] [address] Assigned Musculoskeletal Provider 10/09/22 05/01/24 Livan Sharif MD [address] [place] 0[address]15 Assigned Heart and Vascular Provider 11/06/22 11/12/22 Catherine Cm MD [address] [place] [address] Assigned Heart and Vascular Provider 11/13/22 05/27/23 Sydnie Martinez, RN Personal Advocate & Liaison (PAL) Family Medicine 03/28/23 07/31/23 Alfonso Renteria MD 5775 [facility] 200 [place] [address] Assigned Neuroscience Provider 04/02/23 09/29/24 Cheng Todd PA-C [address] [place] [address] Assigned PCP 04/30/23 07/15/23 Radha Lomeli APRN GROUNDS MAINTENANCE SUPERVISOR [address] [place] [address] Assigned Heart and Vascular Provider 05/28/23 Jelena David OD [address] [facility] [place] [address] Ophthalmology 06/15/23 Pao Joseph, RN Personal Advocate & Liaison (PAL) Nurse 08/01/23 11/07/23 Esha Grimm PA-C [address] [place] [phone] Assigned PCP 07/16/23 Valery Veronica PA-C [address] [place] [address] 323095 Physician Card Grinder Helper Dermatology 09/19/23 Rey Tay MD [address] [place] [address] 897925 MD Gastroenterology 09/20/23 Rocky Zepeda DO [address] [place] [address] 839705 Physician Gastroenterology 09/20/23 Philip Dumont MD 6 [place], [place] 299485 Physician Ophthalmology 09/22/23 Meredith Carrera PA-C [address] [place] [address] 287365 Assigned Gastroenterology Provider 11/01/23 Neil Kent MD [address] [address] Dermatology 11/02/23 [place] [address] [place] [address] Neurological Surgery 12/26/23 Audrey Waite PA-C 500 [place] [address] Physician Card Grinder Helper Dermatology 02/28/24 Valery Veronica PA-C 9[address]27 [address] [place] [address] Physician Card Grinder Helper Dermatology 04/10/24 Herminia Hatch MD [address] [place] [address] Assigned Rheumatology Provider 07/02/24 [place] [address] [place] [address] [place] [address] Ophthalmology 08/30/24 [place] [address] [place] [address] Assigned Neuroscience Provider 09/30/24 Maru Man PA-C [address] [address] Physician Card Grinder Helper Dermatology 10/03/24 documented as of this encounter
--- OUTSIDE RECORDS SUMMARY | 2024-10-18 19:26 | XMS_ITS | Encounter Summary ---
Author Organization [facility] Address [address] [place] [address] Care Team Providers Care Pearl Stringer Name Role Phone Lita Oseguera Unavailable Unavailable Marija Edgar EVENT SERVICES MANAGER SECURITY RISK ANALYST Primary Care Provider + Chanelle Mccann EVENT SERVICES MANAGER CNM Unavailab le Marija Edgar APRN SECURITY RISK ANALYST Unavailable Mynor Broussard MD Unavailable [phone] Keisha Dotson MD Unavailable [phone] Galo Burrell MD Unavailable Unavailable Diana Desir [facility] Unavailable Rain Galaviz PA-C Unavailable Summer Lara MD Unavailable [phone] Summer Lara MD Unavailable [phone] Summer Lara MD Unavailable Tavia Wyatt MD Unavailable Johnny Murillo MD Unavailable Erica Farrell EVENT SERVICES MANAGER SECURITY RISK ANALYST Unavailable Teresita Bean [facility] Unavailable [phone] Tavia Wyatt MD Unavailable DesirDiana [facility] Unavailable Rich Barrett MD Unavailable Neil Kent MD Unavailable Roney StoryM Unavailable [phone] Erica Farrell APRN SECURITY RISK ANALYST Unavailable Diana Desir [facility] Unavailable [phone] Jelena David OD Unavailable Galo Burrell MD Unavailable Unavailable Livan Sharif MD Unavailable Livan Sharif MD Unavailable Catherine Cm MD Unavailable + Valery VeronicaC Unavailable [phone] Catherine Cm MD Unavailable + Johnny Murillo MD Unavailable [phone] Brea Quinn EVENT SERVICES MANAGER SECURITY RISK ANALYST Unavailable [phone] Brea Quinn EVENT SERVICES MANAGER SECURITY RISK ANALYST Unavailable [phone] Jose Francisco Johnson MD Unavailable Livan Sharif MD Unavailable Catherine Cm MD Unavailable + Sydnie Martinez RN Unavailable Unavailable Alfonso Renteria MD Unavailable Esha GrimmC Primary Care Provider Cheng Todd-C Unavailable [phone] Radha Lomeli APRN SECURITY RISK ANALYST Unavailable [phone] Jelena aDvid OD Unavailable Pao Joseph RN Unavailable Unavailable Alfa, Esha M PA-C Unavailable [phone] Valery Veronica PA-C Unavailable Rey Tay MD Unavailable Rocky Zepeda DO Unavailable Philip Dumont MD Unavailable Meredith Carrera PA-C Unavailable [phone] Neil Kent MD Unavailable Juan Pablo Emmanuel MD Unavailable Audrey Waite PA-C Unavailable [phone] Valery Veronica PA-C Unavailable [phone] Herminia Hatch MD Unavailable Jelena David OD Unavailable Juan Pablo Emmanuel MD Unavailable [phone] Maru Man PA-C Unavailable Encounter Details Date Type Department Care Team (Late st Contact Info) Description 04/28/2021 [facility] [address] [address] Marija Edgar APRN SECURITY RISK ANALYST 5327 [facility] [place] [address] Social History Tobacco Use Types [...] do you attend chur or jewish services? More than 4 times [...] Answer Date Recorded PHQ-2 Score 0 04/02/2021 [facility] [place] of Occupat ional Health - Occupational Stress [...] in a chcf (including now)? No 08/11/2020 [place] Depression Scale Answer Date Recorded [place] [...] CDT Legal Sex Female 4:13 AM SALES RECRUITMENT SPECIALIST Gender Identity Female 03/02/2021 5:45 PM [...] Description 10/22/2024 11:00 AM CDT Office Visit [facility] [address] [phone] Maru Man PA-C [address] [address] 10/23/2024 PRE VISIT [facility] Neu[facility] - [address], [address] [place] [phone] Johnny Penn MD [address] [place], [place] 46[address] Previsit 10/23/2024 9:30 AM CDT Office Visit [facility] - [address], [address] [place] [phone] [place] [address] [place], [place] [address] Johnny Penn MD [address] [place] 7[address]195 10/24/2024 4:00 PM CDT Office Visit [facility] [place] [address] [facility] [address] [place] [phone] Jelena David, [address] [facility] [place] [address] 10/31/2024 9:15 AM CDT Virtual Visit [facility] Gastroenterology [address] 4th [place] [phone] Meredith Carrera PA-C [address] [place] [address] 12/20/2024 2:30 PM CDT Office Visit [facility] [address] [place] [address] Esha Grimm PA-C [address] [place] [address] documented as of this encounter Visit Diagnoses Not on filedocumented in this encounter Additional Health Concerns Infection Onset Date Last Indicated Resolved Time Rule Out COVID-19 05/11/2021 05/11/2021 05/13/2021 10:18 AM CDT Rule Out COVID-19 07/13/2021 07/13/2021 07/14/2021 3:04 PM SALES RECRUITMENT SPECIALIST Rule Out COVID-19 07/18/2021 07/18/2021 07/20/2021 1:56 PM SALES RECRUITMENT SPECIALIST COVID-19 07/18/2021 07/18/2021 08/08/2021 11:3 9 PM SALES RECRUITMENT SPECIALIST Rule Out COVID-19 12/18/2021 12/18/2021 12/19/2021 11:34 AM CDT Rule Out COVID-19 02/24/2022 02/24/2022 02/25/2022 1:08 PM CDT Rule Out COVID-19 04/26/2022 04/26/2022 04/26/2022 6:47 AM CDT Rule Out COVID-19 05/17/2022 05/17/2022 05/17/2022 10:20 PM SALES RECRUITMENT SPECIALIST Rule Out COVID-19 06/09/2022 06/09/2022 06/09/2022 9:35 AM SALES RECRUITMENT SPECIALIST COVID-19 06/09/2022 06/09/2022 06/30/2022 11:4 1 PM SALES RECRUITMENT SPECIALIST Rule Out COVID-19 11/10/2022 11/10/2022 11/11/2022 [...] documented as of this encounter Care Teams Pearl Stringer Relationship Specialty Start Date End Date Marija Edgar APRN SECURITY RISK ANALYST PCP - General Nurse Practitioner 04/30/20 04/14/23 Esha Grimm PA-C [address] [place] [phone] PCP - General Family Medicine 05/04/23 Lita Oseguera Personal Advocate & Liaison (PAL) 02/28/20 03/27/23 Chanelle Mccann APRN CNM [address] [place] [address] 200 [place], [place] 125477 Assigned OBGYN Provider 05/02/2005/09 Marija Edgar APRN SECURITY RISK ANALYST Assigned PCP 06/08/20 04/29/23 Mynor Broussard MD 6363 [facility] 500 [place], [place] [address]805 Assigned Surgical Provider 06/01/20 11/28/21 Keisha Dotson MD 909 [place] [address] Assigned Neuroscience Provider 06/04/20 04/01/23 Galo Burrell MD Assigned Heart and Vascular Provider 10/05/20 04/02/22 [facility] 3033 [place] [address] Pharmacist Pharmacist 04/17/21 Rain Galaviz PA-C [address] [place] [address] [place] [address] Physician Elementary Substitute Teacher Dermatology 04/28/21 Summer Lara MD [address] [place] [address] Assigned OBGYN Provider 05/10/2105/23 Summer Lara MD [address] [place] [address] Assigned OBGYN Provider 05/31/21 2 Summer Lara MD [address] [place] [address] 740464 Assigned OBGYN Provider 05/24/2105/30 Tavia Wyatt MD [address] [place] [address] 927584 Dermatology 07/14/21 Johnyn Murillo MD [facility] [address] [facility] [address] [place] [address] Assigned Musculoskeletal Provider 08/30/21 03/17/22 Erica Farrell APRN SECURITY RISK ANALYST 6405 [facility] [address] [place] [address] Nurse Practitioner Cardiovascular Disease 09/09/21 Teresita Bean [facility] [address] [facility] [place] [address] Pharmacist Pharmacist 09/24/21 09/29/21 Tavia Wyatt MD [address] [place] [address] Assigned Surgical Provider 11/29/21 05/07/22 Diana Desir, [facility] [place] [address] Assigned MTM Pharmacist 01/02/22 Rich Barrett MD [facility] [employer] [place] [address] Physician Ophthalmology 01/21/22 Neil Kent MD 500 [place] [address] Dermatology 02/24/22 [place] [address] [facility] 300 [place] [address] Assigned Musculoskeletal Provider 03/20/22 08/13/22 Erica Farrell APRN SECURITY RISK ANALYST 1700 [place] [address] Assigned Heart and Vascular Provider 04/03/22 04/16/22 Diana Desir, [facility] [place] [address] Assigned MTM Pharmacist 04/07/22 Jelena David OD [address]305 [facility] [place] [address] Assigned Surgical Provider 05/08/22 10/08/22 Galo Burrell MD Assigned Heart and Vascular Provider 04/17/22 06/11/22 Livan Sharif MD [address] [place] 232[address] Cardiovascular Disease 05/14/22 Livan Sharif MD [address] [place] [address] Assigned Heart and Vascular Provider 06/12/22 07/23/22 Catherine Cm MD [address] [place] 982275 Cardiovascular Disease 07/21/22 Valery Veronica, PAUcheC 909 [place], [place] 553635 Physician Elementary Substitute Teacher Dermatology 07/21/22 Catherine Cm MD [address] [place] [address] Assigned Heart and Vascular Provider 07/24/22 11/05/22 Johnny Murillo MD [address] 582504 Assigned Musculoskeletal Provider 08/14/22 10/08/22 Brea Quinn APRN SECURITY RISK ANALYST 500 [place] [address] Nurse Practitioner Dermatology 09/21/22 Brea Quinn APRN SECURITY RISK ANALYST 6401 [facility] [place] [address] Assigned Surgical Provider 10/09/22 05/01/24 [place] [address] [facility] 300 [place], [place] 164677 Assigned Musculoskeletal Provider 10/09/22 05/01/24 Livan Sharif MD 6405 [facility] [address] [place] [address] Assigned Heart and Vascular Provider 11/06/22 11/12/22 Catherine Cm MD 6405 [facility] [address] [place] [address] Assigned Heart and Vascular Provider 11/13/22 05/27/23 Sydnie Martinez RN Personal Advocate & Liaison (PAL) Family Medicine 03/28/23 07/31/23 Alfonso Renteria MD 5775 [facility] 200 [place], [place] 931646 Assigned Neuroscience Provider 04/02/23 09/29/24 Cheng Todd PA-C [address] [place] [address] Assigned PCP 04/30/23 07/15/23 Radha Lomeli APRN SECURITY RISK ANALYST 6405 [facility] [address] [place] [address] Assigned Heart and Vascular Provider 05/28/23 Jelena David OD [address] [facility] [place] [address] MD Ophthalmology 06/15/23 Pao Joseph, VJ Personal Advocate & Liaison (PAL) Nurse 08/01/23 11/07/23 Esha Grimm PA-C [address] [place] [phone] Assigned PCP 07/16/23 Valery Veronica PA-C [address] [place] [address] 837935 Physician Elementary Substitute Teacher Dermatology 09/19/23 Rey Tay MD [address] [place] [address] 174115 Gastroenterology 09/20/23 Rocky Zepeda DO [address] [place] [address] 937185 Physician Gastroenterology 09/20/23 Philip Dumont MD [address] [place] [address] 989005 Physician Ophthalmology 09/22/23 Meredith Carrera PA-C [address] [place] [address] 206385 Assigned Gastroenterology Provider 11/01/23 Neil Kent MD [address] [place] [address] Dermatology 11/02/23 [place] [address] [place] [address] Neurological Surgery 12/26/23 Audrey Waite PA-C 500 [place] [address] Physician Elementary Substitute Teacher Dermatology 02/28/24 Valery Veronica PA-C 444456 [place], [place] [address] Physician Elementary Substitute Teacher Dermatology 04/10/24 Herminia Hatch MD [address] [place] [address] Assigned Rheumatology Provider 07/02/24 Jelena David OD [address] [place] [address] [place] [address] Ophthalmology 08/30/24 [place] [address] [facility] [place] [address] Assigned Neuroscience Provider 09/30/24 Maru Man PA-C [address] [place] [address] Physician Elementary Substitute Teacher Dermatology 10/03/24 documented as of this encounter
--- OUTSIDE RECORDS SUMMARY | 2024-10-18 19:26 | XMS_ITS | Encounter Summary ---
Author Organization [facility] Address [address] [place] [address] Care Team Providers Care Budget Specialist Name Role Phone Lita Oseguera Unavailable Unavailable Marija Edgar LOG TRUCK DRIVER ASSISTANT SIGNAL MAINTAINER Primary Care Provider + Chanelle Mccann LOG TRUCK DRIVER CNM Unavailab le Marija Edgar APRN ASSISTANT SIGNAL MAINTAINER Unavailable [phone] Mynor Broussard MD Unavailable [phone] Keisha Dotson MD Unavailable [phone] Galo Burrell MD Unavailable Unavailable Diana Desir [facility] Unavailable Rain Galaviz PA-C Unavailable Summer Lara MD Unavailable Summer Lara MD Unavailable [phone] Summer Lara MD Unavailable [phone] Tavia Wyatt MD Unavailable Johnny Murillo MD Unavailable Erica Farrell LOG TRUCK DRIVER ASSISTANT SIGNAL MAINTAINER Unavailable Teresita Bean [facility] Unavailable Tavia Wyatt MD Unavailable DesirDiana [facility] Unavailable Rich Barrett MD Unavailable Neil Kent MD Unavailable Roney StoryM Unavailable [phone] Erica Farrell APRN ASSISTANT SIGNAL MAINTAINER Unavailable Diana Desir [facility] Unavailable [phone] Jelena David OD Unavailable [phone] Galo Burrell MD Unavailable Unavailable Livan Sharif MD Unavailable Livan Sharif MD Unavailable Catherine Cm MD Unavailable + Valery VeronicaC Unavailable [phone] Catherine Cm MD Unavailable + Johnny Murillo MD Unavailable [phone] Brea Quinn LOG TRUCK DRIVER ASSISTANT SIGNAL MAINTAINER Unavailable [phone] Brea Quinn LOG TRUCK DRIVER ASSISTANT SIGNAL MAINTAINER Unavailable [phone] Jose Francisco Johnson MD Unavailable Livan Sharif MD Unavailable Catherine Cm MD Unavailable + Sydnie Martinez RN Unavailable Unavailable Alfonso Renteria MD Unavailable Esha GrimmC Primary Care Provider Cheng Todd-C Unavailable [phone] Radha Lomeli APRN ASSISTANT SIGNAL MAINTAINER Unavailable [phone] Jelena David OD Unavailable Pao Joseph RN Unavailable Unavailable Alfa, Esha M PA-C Unavailable [phone] Valery Veronica PA-C Unavailable [phone] Rey Tay MD Unavailable Duane Rocky Unavailable Philip Dumont MD Unavailable [phone] Meredith Carrera PA-C Unavailable [phone] Neil Kent MD Unavailable Juan Pablo Emmanuel MD Unavailable Audrey Waite PA-C Unavailable [phone] Valery Veronica PA-C Unavailable Herminia Hatch MD Unavailable Jelena David OD Unavailable Juan Pablo Emmanuel MD Unavailable [phone] Maru Man PA-C Unavailable [phone] Encounter Details Date Type Department Care Team (Late st Contact Info) Description 04/28/2021 [facility] [address] [address] Lauren Gan, RN Social History [...] a nursing home (including now)? No 08/11/2020 [place] Depression Scale Answer Date Recorded [place] Depression Score 5 01/14/2021 Last EPDS Self Harm Result Not on file 01/14 Education Answer Date Recorded What is the highest level of school you have completed or the highest degree you have received? 12th grade 08/07/2020 Comments No Sex and Gender Information Value Date Recorded Sex Assigned at Female 03/02/2021 5:45 PM CDT Legal Sex Female 4:13 AM SPORTS MANAGEMENT INTERN Gender Identity Female 03/02/2021 5:45 PM [...] Care Team (Taylor munoz Contact Info) Description 10/22/2024 11:00 AM CDT Office Visit [address] [address] Maru Man PA-C [address] [place] [address] 10/23/2024 PRE VISIT [facility] Neurology [facility] - [address], [address] [place] [phone] Johnny Penn MD [address] [place], [place] [address] Previsit 10/23/2024 9:30 AM CDT Office Visit [facility] Neurology [facility] - [address] [place] [phone] [place] [address] [place], [place] [address] Johnny Penn MD [address] [place] [place] [address] 10/24/2024 4:00 PM CDT Office Visit [facility] [address] [facility] [address] [place] [phone] Jelena David, [address] [facility] [place] [address] 10/31/2024 9:15 AM CDT Virtual Visit [facility] Gastroenterology Clinic [address] [place] [phone] Meredith Carrera PA-C 909 [place], [place] 722905 12/20/2024 2:30 PM CDT Office Visit [address] [phone] Esha Grimm PA-C [address] [place] [phone] documented as of this encounter Visit Diagnoses Not on filedocumented in this encounter Additional Health Concerns Infection Onset Date Last Indicated Resolved Time Rule Out COVID-19 05/11/2021 05/11/2021 05/13/2021 10:18 AM CDT Rule Out COVID-19 07/13/2021 07/13/2021 07/14/2021 3:04 PM SPORTS MANAGEMENT INTERN Rule Out COVID-19 07/18/2021 07/18/2021 07/20/2021 1:56 PM SPORTS MANAGEMENT INTERN COVID-19 07/18/2021 07/18/2021 08/08/2021 11:3 9 PM SPORTS MANAGEMENT INTERN Rule Out COVID-19 12/18/2021 12/18/2021 12/19/2021 11:34 AM CDT Rule Out COVID-19 02/24/2022 02/24/2022 02/25/2022 1:08 PM CDT Rule Out COVID-19 04/26/2022 04/26/2022 04/26/2022 6:47 AM CDT Rule Out COVID-19 05/17/2022 05/17/2022 05/17/2022 10:20 PM SPORTS MANAGEMENT INTERN Rule Out COVID-19 06/09/2022 06/09/2022 06/09/2022 9:35 AM SPORTS MANAGEMENT INTERN COVID-19 06/09/2022 06/09/2022 06/30/2022 11:4 1 PM SPORTS MANAGEMENT INTERN Rule Out COVID-19 11/10/2022 11/10/2022 11/11/2022 [...] Date End Date Marija Edgar APRN ASSISTANT SIGNAL MAINTAINER PCP - General Nurse Practitioner 04/30/20 04/14/23 Esha Grimm PA-C [address] [place] [phone] PCP - General Family Medicine 05/04/23 Lita Oseguera Personal Advocate & Liaison (PAL) 02/28/20 03/27/23 [place] [address] [place] [address] 200 [place] [address] Assigned OBGYN Provider 05/02/2005/09 Marija Edgar APRN ASSISTANT SIGNAL MAINTAINER Assigned PCP 06/08/20 04/29/23 Mynor Broussard MD 6[address] [facility] 500 [place] [address] Assigned Surgical Provider 06/01/20 11/28/21 Keisha Dotson MD 909 [place], [place] 699235 Assigned Neuroscience Provider 06/04/20 04/01/23 Galo Burrell MD Assigned Heart and Vascular Provider 10/05/20 04/02/22 Diana Desir, [facility] [address] [place] [address] Pharmacist Pharmacist 04/17/21 Rain Galaviz PA-C [address] [place] [address] [place] [address] Physician Sexual Assault Counsellor Dermatology 04/28/21 Summer Lara MD [address] [place], [place] [address] Assigned OBGYN Provider 05/10/2105/23 Summer Lara MD [address] [place], [place] 2115[address] Assigned OBGYN Provider 05/31/21 Summer Lara MD [address] [place] [address] [address] [place], [place] 703504 Assigned OBGYN Provider 05/24/2105/30 Tavia Wyatt MD [address] [place], [place] 294894 Dermatology 07/14/21 Johnny Murillo MD [address] [place] [address] Assigned Musculoskeletal Provider 08/30/21 03/17/22 Erica Farrell APRN ASSISTANT SIGNAL MAINTAINER [address] [facility] [address] [place] [address] Nurse Practitioner Cardiovascular Disease 09/09/21 Teresita Bean [facility] [address] [place] [address] Pharmacist Pharmacist 09/24/21 09/29/21 Tavia Wyatt MD [address] [place] [address] Assigned Surgical Provider 11/29/21 05/07/22 iDana Desir, [facility] [address] [place] [address] Assigned MTM Pharmacist 01/02/22 Rich Barrett MD [facility] [place] [address] Physician Ophthalmology 01/21/22 Neil Kent MD 500 [place], [place] 156505 Dermatology 02/24/22 Roney Story DPM [address] [facility] [address] [place] [address] Assigned Musculoskeletal Provider 03/20/22 08/13/22 Erica Farrell APRN ASSISTANT SIGNAL MAINTAINER 1700 [place] [address] Assigned Heart and Vascular Provider 04/03/22 04/16/22 Diana Desir, [facility] [place] [address] Assigned MTM Pharmacist 04/07/22 Jelena David OD [address] [place] [address] Assigned Surgical Provider 05/08/22 10/08/22 Galo Burrell MD Assigned Heart and Vascular Provider 04/17/22 06/11/22 Livan Sharif MD [address] [place] 168[address] Cardiovascular Disease 05/14/22 Livan Sharif MD [address] [place] 864195 Assigned Heart and Vascular Provider 06/12/22 07/23/22 Catherine Cm MD [address] [place] [address] Cardiovascular Disease 07/21/22 Valery Veronica, PA-C [address] [place] [address] Physician Sexual Assault Counsellor Dermatology 07/21/22 Catherine Cm MD [address] [place] [address] Assigned Heart and Vascular Provider 07/24/22 11/05/22 Johnny Murillo MD [facility] [address] [address] Assigned Musculoskeletal Provider 08/14/22 10/08/22 Brea Quinn APRN ASSISTANT SIGNAL MAINTAINER [address] [place] [address] Nurse Practitioner Dermatology 09/21/22 Brea Quinn APRN ASSISTANT SIGNAL MAINTAINER 64[address] [facility] [place] [address] Assigned Surgical Provider 10/09/22 05/01/24 [place] [address] [facility] 300 [place] [address] Assigned Musculoskeletal Provider 10/09/22 05/01/24 Livan Sharif MD [address] [facility] [address] [place] [address] Assigned Heart and Vascular Provider 11/06/22 11/12/22 Catherine Cm MD [address] [place] 1747000 [place] [address] Assigned Heart and Vascular Provider 11/13/22 05/27/23 Sydnie Martinez RN Personal Advocate & Liaison (PAL) Family Medicine 03/28/23 07/31/23 Alfonso Renteria MD 5775 [facility] 200 [place] [address] Assigned Neuroscience Provider 04/02/23 09/29/24 Cheng Todd PA-C [address] [place] [address] Assigned PCP 04/30/23 07/15/23 Radha Lomeli APRN ASSISTANT SIGNAL MAINTAINER 6405 [facility] [address] [place] [address] Assigned Heart and Vascular Provider 05/28/23 Jelena David OD [address] [place] [address] MD Ophthalmology 06/15/23 Pao Joseph, RN Personal Advocate & Liaison (PAL) Nurse 08/01/23 11/07/23 Esha Grimm PA-C [address] [place] [phone] Assigned PCP 07/16/23 Valery Veronica PA-C [address] [place] [address] 104715 Physician Sexual Assault Counsellor Dermatology 09/19/23 Rey Tay MD [address] [place] [address] 512505 Gastroenterology 09/20/23 Rocky Zepeda DO [address] [place] [address] 178085 Physician Gastroenterology 09/20/23 Philip Dumont MD [address] [place] [address] 808665 Physician Ophthalmology 09/22/23 Meredith Carrera PA-C [address] [place] [address] 978475 Assigned Gastroenterology Provider 11/01/23 Neil Kent MD [address] [address] Dermatology 11/02/23 [place] [address] [place] [address] Neurological Surgery 12/26/23 Audrey Waite PA-C 500 [place] [address] Physician Sexual Assault Counsellor Dermatology 02/28/24 Valery Veronica PA-C 925072 [place] [address] Physician Sexual Assault Counsellor Dermatology 04/10/24 Herminia Hatch MD [address] [place] [address] [id number] Assigned Rheumatology Provider 07/02/24 [place] [address] [place] [address] [place] [address] Ophthalmology 08/30/24 [place] [address] [place] [address] Assigned Neuroscience Provider 09/30/24 Maru Man PA-C [address] [place] [address] Physician Sexual Assault Counsellor Dermatology 10/03/24 documented as of this encounter
--- OUTSIDE RECORDS SUMMARY | 2024-10-18 19:26 | XMS_ITS | Encounter Summary ---
Author Organization [facility] Address [address] [place] [address] Care Team Providers Care Fixer Boarding Room Name Role Phone Lita Oseguera Unavailable Unavailable Marija Edgar APRN LEADER WRITER Primary Care Provider + Marija Edgar APRN LEADER WRITER Unavailable Keisha Dotson MD Unavailable Diana Desir [facility] Unavailable Rain Galaviz PA-C Unavailable Tavia Wyatt MD Unavailable Erica Farrell APRN LEADER WRITER Unavailable Rich Barrett MD Unavailable [phone] Neil Kent MD Unavailable Diana Desir [facility] Unavailable Livan Sharif MD Unavailable Catherine Cm MD Unavailable + Valery Veronica PA-C Unavailable [phone] Catherine Cm MD Unavailable + Brea Quinn DENTAL ASSISTANT INSTRUCTOR LEADER WRITER Unavailable [phone] Brea Quinn DENTAL ASSISTANT INSTRUCTOR LEADER WRITER Unavailable [phone] Jose Francisco Johnson MD Unavailable Livan Sharif MD Unavailable Catherine Cm MD Unavailable + Sydnie Martinez RN Unavailable Unavailable Alfonso Renteria MD Unavailable Esha Grimm PA-C Primary Care Provider Cheng Todd PA-C Unavailable [phone] Radha Lomeli DENTAL ASSISTANT INSTRUCTOR LEADER WRITER Unavailable [phone] Jelena David OD Unavailable Pao Joseph RN Unavailable Unavailable Esha Grimm PA-C Unavailable [phone] Valery Veronica PA-C Unavailable Rey Tay MD Unavailable Rocky Zepeda DO Unavailable Philip Dumont MD Unavailable Meredith Carrera PA-C Unavailable Neil Kent MD Unavailable Juan Pablo Emmanuel MD Unavailable Audrey Waite PA-C Unavailable [phone] Valery Veronica PA-C Unavailable Herminia Hatch MD Unavailable Jelena David OD Unavailable Juan Pablo Emmanuel MD Unavailable Maru Man PA-C Unavailable [phone] Encounter Details Date Type Department Care Team (Late st Contact Info) Description 10/22/2022 [facility] Sports Medicine Clinic [place] [address] [place] [address] [place] [address] [place] [address] [place] [address] Social History Tobacco Use Types Packs/Day Years [...] How often do you attend orthodoxy or roman catholic serv ices? Never 09/22/2021 [...] Answer Date Recorded PHQ-2 Score 1 10/11/2022 [facility] - [...] a long term (including now)? No 09/22/2021 [place] Depression Scale Answer Date Recorded [place] Depression Score 5 01/14/2021 Last EPDS Self Harm Result Not on file 01/14 Education Answer Date Recorded What is the highest level of school you have completed or the highest degree you have received? 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 Gender Identity Female 03/02/2021 5:45 PM [...] Description 10/22/2024 11:00 AM CDT Office Visit [address] [address] Maru Man PA-C [address] [place] [address] 10/23/2024 PRE VISIT [facility] Neurology [facility] - [address], [address] [place] [phone] Johnny Penn MD [address] [facility] [place] [address] Previsit 10/23/2024 9:30 AM CDT Office Visit [facility] Neurology [facility] [address] [facility], [address] [place] [phone] [place] [address] [place], [place] [address] Johnny Penn MD [address] [facility] [place] [address] 10/24/2024 4:00 PM CDT Office Visit [facility] [address] [facility] [address] [place] [phone] Jelena David, [address] [facility] [place] [address] 10/31/2024 9:15 AM CDT Virtual Visit [facility] Gastroenterology Clinic [address] [place] [phone] Meredith Carrera PA-C [address] [place] [address] 12/20/2024 2:30 PM CDT Office Visit [facility] [address] [place] [phone] Esha Grimm PA-C [address] [place] [address] documented as of this encounter [...] documented as of this encounter Care Teams Fixer Boarding Room Relationship Specialty Start Date End Date Marija Edgar APRN LEADER WRITER PCP - General Nurse Practitioner 04/30/20 04/14/23 Esha Grimm PA-C [address] [place] [phone] PCP - General Family Medicine 05/04/23 Lita Oseguera Personal Advocate & Liaison (PAL) 02/28/20 03/27/23 Marija Edgar APRN LEADER WRITER Assigned PCP 06/08/20 04/29/23 Keisha Dotson MD 909 [place], [place] 391345 Assigned Neuroscience Provider 06/04/20 04/01/23 Diana Desri [facility] 3033 [place], [place] 5[address] Pharmacist Pharmacist 04/17/21 Rain Galaviz PA-C [address] [place] [address] [place] [address] Physician Automotive Parts Counterperson Dermatology 04/28/21 Tavia Wyatt MD [address] [place] [address] DR RA[address] [facility] [place] [address] Dermatology 07/14/21 Erica Farrell APRN LEADER WRITER [address] [place] [address] Nurse Practitioner Cardiovascular Disease 09/09/21 Rich Barrett MD [address] [facility] [place] [address] Physician Ophthalmology 01/21/22 Neil Kent MD [address] [place] [address] 375075 Dermatology 02/24/22 [facility] 3033 [place], [place] 382266 Assigned [place] Pharmacist 04/07/22 Livan Sharif MD [address] [place] [address] [place] [address] Cardiovascular Disease 05/14/22 Catherine Cm MD [address] [place] [address] [place] [address] Cardiovascular Disease 07/21/22 Valery Veronica, PA-C 909 [place], [place] 271315 Physician Automotive Parts Counterperson Dermatology 07/21/22 Catherine Cm MD [address] [facility] [address] [place] [address] Assigned Heart and Vascular Provider 07/24/22 11/05/22 Brea Quinn APRN LEADER WRITER 500 [place], [place] 244265 Nurse Practitioner Dermatology 09/21/22 Brea Quinn APRN LEADER WRITER 6401 [facility] [place] 15[address]2 Assigned Surgical Provider 10/09/22 05/01/24 [place] [address] 908627 Assigned Musculoskeletal Provider 10/09/22 05/01/24 Livna Sharif MD [address] [facility] [address] [place] [address] Assigned Heart and Vascular Provider 11/06/22 11/12/22 Catherine Cm MD [address] [facility] [address] [place] [address] Assigned Heart and Vascular Provider 11/13/22 05/27/23 Sydnie Martinez, VJ Personal Advocate & Liaison (PAL) Family Medicine 03/28/23 07/31/23 Alfonso Renteria MD 57[address] [facility] 200 [place], [place] 632746 Assigned Neuroscience Provider 04/02/23 09/29/24 Cheng Todd PA-C [address] [place] [address] [phone] Assigned PCP 04/30/23 07/15/23 Radha Lomeli APRN LEADER WRITER [address] [facility] [address] [place] [address] Assigned Heart and Vascular Provider 05/28/23 Jelena David OD [address] [facility] [address] Ophthalmology 06/15/23 Pao Joseph, VJ Personal Advocate & Liaison (PAL) Nurse 08/01/23 11/07/23 Esha Grimm PA-C [address] [place] [phone] Assigned PCP 07/16/23 Valery Veronica PA-C [address] [place] [address] Physician Automotive Parts Counterperson Dermatology 09/19/23 Rey Tay MD [address] [place] [address] 951635 Gastroenterology 09/20/23 Rocky Zepeda DO [address] [place] [address] 673715 Physician Gastroenterology 09/20/23 Philip Dumont MD [address] [place] [address] 758875 Physician Ophthalmology 09/22/23 Meredith Carrera PA-C [address]09 [place] [address] Assigned Gastroenterology Provider 11/01/23 Neil Kent MD [address] [place] [address] Dermatology 11/02/23 [place] [address] [place] [address] Neurological Surgery 12/26/23 Audrey Waite PA-C [address] [place] [address] Physician Automotive Parts Counterperson Dermatology 02/28/24 Valery Veronica PA-C 347181 [address] [place] [address] Physician Automotive Parts Counterperson Dermatology 04/10/24 Herminia Hatch MD [address] [place] [address] [id number] Assigned Rheumatology Provider 07/02/24 Jelena David OD [address] [place] [address] [place] [address] Ophthalmology 08/30/24 [place] [address] [place] [address] Assigned Neuroscience Provider 09/30/24 Maru Man PA-C [address] [place] [address] Physician Automotive Parts Counterperson Dermatology 10/03/24 documented as of this encounter
--- OUTSIDE RECORDS SUMMARY | 2024-10-18 19:26 | XMS_ITS | Encounter Summary ---
Author Organization [place] Address [address] [place] [address] Care Team Providers Care Government Affairs Specialist Name Role Phone Lita Oseguera Unavailable Unavailable Marija Edgar APRN FITNESS DIRECTOR Primary Care Provider + Marija Edgar APRN FITNESS DIRECTOR Unavailable Mynor Broussard MD Unavailable [phone] Keisha Dotson MD Unavailable [phone] Galo Burrell MD Unavailable Unavailable Diana Desir [facility] Unavailable [phone] Rain Galaviz PA-C Unavailable Summer Lara MD Unavailable [phone] Tavia Wyatt MD Unavailable Johnny Murillo MD Unavailable Erica Farrell APRN FITNESS DIRECTOR Unavailable Teresita Bean [facility] Unavailable Tavia Wyatt MD Unavailable Diana Desir [facility] Unavailable Rich Barrett MD Unavailable [phone] Neil Kent MD Unavailable Roney Story DPM Unavailable Erica Farrell SNAG GRINDER FITNESS DIRECTOR Unavailable Diana Desir [facility] Unavailable [phone] Jelena David OD Unavailable Galo Burrell MD Unavailable Unavailable Livan Sharif MD Unavailable + Livan Sharif MD Unavailable + Catherine Cm MD Unavailable + Valery Veronica PA-C Unavailable [phone] Catherine Cm MD Unavailable + Johnny Murillo MD Unavailable [phone] Brea Quinn SNAG GRINDER FITNESS DIRECTOR Unavailable [phone] Brea Quinn SNAG GRINDER FITNESS DIRECTOR Unavailable [phone] Jose Francisco Johnson MD Unavailable Livan Sharif MD Unavailable + IsCatherine hobbs MD Unavailable + Sydnie Martinez RN Unavailable Unavailable Alfonso Renteria MD Unavailable Esha Grimm-C Primary Care Provider Cheng Todd PA-C Unavailable Radha Lomeli SNAG GRINDER FITNESS DIRECTOR Unavailable [phone] Jelena David OD Unavailable Poa Joseph RN Unavailable Unavailable Esha Grimm-C Unavailable [phone] JeremíasValery damon PA-C Unavailable [phone] Rey Tay MD Unavailable Rocky Zepeda DO Unavailable Philip Dumont MD Unavailable [phone] Meredith Carrera-C Unavailable [phone] Neil Kent MD Unavailable Juan Pablo Emmanuel MD Unavailable [phone] Audrey Waite PA-C Unavailable [phone] Valery Veronica-C Unavailable [phone] Herminia Hatch MD Unavailable Jelena David OD Unavailable [phone] Juan Pablo Emmanuel MD Unavailable [phone] Maru Man PA-C Unavailable [phone] Encounter Details Date Type Department Care Team (Late st Contact Info) Description 06/01/2021 [facility] [address] [address] [address] [place] [address] Social History Tobacco Use Types Packs/Day Years [...] How often do you attend [facility] or spiritism services? More than 4 times per year [...] Date Recorded PHQ-2 Score 0 04/02[facility]2021 [facility] Answer [...] in a longterm (including now)? No 08/11/2020 [place] Depression [...] PM CDT Legal Sex Female 4:13 AM CAB SUPERVISOR Gender Identity Female 03/02/2021 5:45 PM CDT Sexual Orientation Straight 02/28/2020 12 :51 AM CDT COVID-19 Exposure Response Date Recorded In the last month, have you been in contact with someone who was confirmed or suspected to have Coronavirus / COVID-19? No / Unsure 05/11/2021 4:19 PM CDT documented as of this encounter Miscellaneous Notes * Telephone Encounter - Diana Desir, [facility] - 06/01/2021 3:43 PM CST Called patient and reassured 50 mg dose increase in sertraline is typical and okay to do. She will closely monitor changes in mental health over next couple weeks. Answered all questions. Diana Desir, PharmD Medication Therapy Management Provider, [facility] Pager: [phone] SUPERVISOR documented in this encounter Plan of Treatment Upcoming Encounters Date Type Department Care Team (Late st Contact Info) Description 10/22/2024 11:00 AM CDT Office Visit [facility] [address] [phone] Maru Man PA-C [address] [address] 10/23/2024 PRE VISIT [facility] Neurology [facility] - [address], [address] [place] [phone] Johnny Pnen MD [address] [place] [address] Previsit 10/23/2024 9:30 AM CDT Office Visit [facility] Neurology [facility] - [address], [address] [place] [phone] [place] [address] [address] [place] [id number] Johnny Penn MD [address] [place] [address] 10/24/2024 4:00 PM CDT Office Visit [facility] [address] [facility] [address] [address] [place] [phone] Jelena David, [place] [address] [facility] [place] [address] 10/31/2024 9:15 AM CDT Virtual Visit [facility] Gastroenterology Clinic [place] [address] [place] [phone] Meredith Carrera PA-C [address]09 [place] [address] 12/20/2024 2:30 PM CDT Office Visit [facility] [address] [place] [address] Esha Grimm PA-C [address] [place] [address] documented as of this encounter Visit Diagnoses Not on filedocumented in this encounter Additional Health Concerns Infection Onset Date Last Indicated Resolved Time Rule Out COVID-19 07/13/2021 07/13/2021 07/14/2021 3:04 PM CAB SUPERVISOR Rule Out COVID-19 07/18/2021 07/18/2021 07/20/2021 1:56 PM CAB SUPERVISOR COVID-19 07/18/2021 07/18/2021 08/08/2021 11:3 9 PM CAB SUPERVISOR Rule Out COVID-19 12/18/2021 12/18/2021 12/19/2021 11:34 AM CDT Rule Out COVID-19 02/24/2022 02/24/2022 02/25/2022 1:08 PM CDT Rule Out COVID-19 04/26/2022 04/26/2022 04/26/2022 6:47 AM CDT Rule Out COVID-19 05/17/2022 05/17/2022 05/17/2022 10:20 PM CAB SUPERVISOR Rule Out COVID-19 06/09/2022 06/09/2022 06/09/2022 9:35 AM CAB SUPERVISOR COVID-19 06/09/2022 06/09/2022 06/30/2022 11:4 1 PM CAB SUPERVISOR Rule Out COVID-19 11/10/2022 11/10/2022 11/11/2022 [...] documented as of this encounter Care Teams Government Affairs Specialist Relationship Specialty Start Date End Date Marija Edgar APRN FITNESS DIRECTOR PCP - General Nurse Practitioner 04/30/20 04/14/23 Esha Grimm PA-C [address] [place] [phone] PCP - General Family Medicine 05/04/23 Lita Oseguera Personal Advocate & Liaison (PAL) 02/28/20 03/27/23 Marija Edgar APRN FITNESS DIRECTOR Assigned PCP 06/08/20 04/29/23 Mynor Broussard MD [address] [address] Assigned Surgical Provider 06/01/20 11/28/21 Keisha Dotson MD 909 [place] [address] Assigned Neuroscience Provider 06/04/20 04/01/23 Galo Burrell MD Assigned Heart and Vascular Provider 10/05/20 04/02/22 Diana Desir, [facility] [address] [place] [address] Pharmacist Pharmacist 04/17/21 Rain Galaviz PA-C [address] [place] [address] DR [facility] [place] [address] Physician Electronic Specialist Dermatology 04/28/21 Summer Lara MD [address] [place] [address] 523004 Assigned OBGYN Provider 05/31/21 Tavia Wyatt MD [address] [place] [address] 547874 Dermatology 07/14/21 Johnny Murillo MD [address] [place], [place] 391854 Assigned Musculoskeletal Provider 08/30/21 03/17/22 Erica Farrell APRN FITNESS DIRECTOR [address] [facility] [address] [place], [place] 229395 Nurse Practitioner Cardiovascular Disease 09/09/21 Teresita Bean, [facility] [address] [place] [phone] Pharmacist Pharmacist 09/24/21 09/29/21 Tavia Wyatt MD [address] [place], [place] 529190 Assigned Surgical Provider 11/29/21 05/07/22 Diana Desir, [facility] [address] [place] [address] Assigned MTM Pharmacist 01/02/22 Rich Barrett MD [address] [place] [address] Physician Ophthalmology 01/21/22 Neil Kent MD 500 [place] [address] Dermatology 02/24/22 [place] [address] [facility] [address] [place] [address] Assigned Musculoskeletal Provider 03/20/22 08/13/22 Erica Farrell APRN FITNESS DIRECTOR [address] [place] [address] Assigned Heart and Vascular Provider 04/03/22 04/16/22 Diana Desir, [facility] [address] [place] [address] Assigned MTM Pharmacist 04/07/22 Jelena David OD [address] [facility] [place] [address] Assigned Surgical Provider 05/08/22 10/08/22 Galo Burrell MD Assigned Heart and Vascular Provider 04/17/22 06/11/22 Livan Sharif MD [address] [facility] [address] [place] [address] Cardiovascular Disease 05/14/22 Livan Sharif MD [address] [address] [place] 764525 Assigned Heart and Vascular Provider 06/12/22 07/23/22 Catherine Cm MD [address] [address] [place] [address] Cardiovascular Disease 07/21/22 Valery Veronica, PA-C [address] [place] [address] 045385 Physician Electronic Specialist Dermatology 07/21/22 Catherine Cm MD [address] [address] [place] [address] Assigned Heart and Vascular Provider 07/24/22 11/05/22 Johnny Murillo MD [address] [place] [address] Assigned Musculoskeletal Provider 08/14/22 10/08/22 Brea Quinn APRN FITNESS DIRECTOR [address] [place] [address] 125395 Nurse Practitioner Dermatology 09/21/22 Brea Quinn APRN FITNESS DIRECTOR [address] [place] [address] [place] [address] Assigned Surgical Provider 10/09/22 05/01/24 [place] [address] [place] [address] Assigned Musculoskeletal Provider 10/09/22 05/01/24 Livan Shairf MD [address] [facility] [address] [place] [address] Assigned Heart and Vascular Provider 11/06/22 11/12/22 Catherine Cm MD [address] [facility] [address] [place] [address] Assigned Heart and Vascular Provider 11/13/22 05/27/23 Sydnie Martinez RN Personal Advocate & Liaison (PAL) Family Medicine 03/28/23 07/31/23 Alfonso Renteria MD 5775 [facility] 200 [place] [address] Assigned Neuroscience Provider 04/02/23 09/29/24 Cheng Todd PA-C [address] [place] [address] Assigned PCP 04/30/23 07/15/23 Radha Lomeli, ARLENE FITNESS DIRECTOR [address] [place] [address] Assigned Heart and Vascular Provider 05/28/23 Jelena [facility] OD [facility] [place] [address] Ophthalmology 06/15/23 Pao Joseph, VJ Personal Advocate & Liaison (PAL) Nurse 08/01/23 11/07/23 Esha Grimm PAUcheC [address] [place] [address] Assigned PCP 07/16/23 Valery Veronica PA-C [address] [place] [address] Physician Electronic Specialist Dermatology 09/19/23 Rey Tay MD [address] [place] [address] MD Gastroenterology 09/20/23 Rocky Zepeda DO [address] [place] [address] 246565 Physician Gastroenterology 09/20/23 Philip Dumont MD [address] [place] [address] Physician Ophthalmology 09/22/23 Meredith Carrera PA-C [address] [place] [address] 763585 Assigned Gastroenterology Provider 11/01/23 Neil Kent MD [address] [address] Dermatology 11/02/23 [place] [address] [facility] [place] [address] Neurological Surgery 12/26/23 Audrey Waite PA-C [address] [place] [address] 339295 Physician Electronic Specialist Dermatology 02/28/24 Valery Veronica PA-C [address] [place] [address] Physician Electronic Specialist Dermatology 04/10/24 Herminia Hatch MD [facility] [place], [place] [phone] Assigned Rheumatology Provider 07/02/24 Jelena David OD [address] [facility] [place] [address] Ophthalmology 08/30/24 [place] [address] [place] [address] Assigned Neuroscience Provider 09/30/24 Maru Man PA-C [address] [place] [address] Physician Electronic Specialist Dermatology 10/03/24 documented as of this encounter
--- OUTSIDE RECORDS SUMMARY | 2024-10-18 19:26 | XMS_ITS | Encounter Summary ---
Author Organization [place] Address [address] [place] [address] Care Team Providers Care Industrial Electrician Name Role Phone Lita Oseguera Unavailable Unavailable Marija Edgar APRN RN PEDIATRIC ICU Primary Care Provider + Marija Edgar APRN RN PEDIATRIC ICU Unavailable Keisha Dotson MD Unavailable Diana Desir [facility] Unavailable [phone] Rain Galaviz PA-C Unavailable Tavia Wyatt MD Unavailable Erica Farrell APRN RN PEDIATRIC ICU Unavailable Rich Barrett MD Unavailable [phone] Neil Kent MD Unavailable Diana Desir [facility] Unavailable Livan Sharif MD Unavailable Catherine Cm MD Unavailable + Valery Veronica PA-C Unavailable Catherine Cm MD Unavailable + Brea Quinn COMMERCIAL LINES INSURANCE AGENT RN PEDIATRIC ICU Unavailable Brea Quinn COMMERCIAL LINES INSURANCE AGENT RN PEDIATRIC ICU Unavailable Jose Francisco Johnson MD Unavailable Livan Sharif MD Unavailable Catherine Cm MD Unavailable + Sydnie Martinez RN Unavailable Unavailable Alfonso Renteria MD Unavailable Esha Grimm PA-C Primary Care Provider Cheng Todd PA-C Unavailable [phone] Radha Lomeli COMMERCIAL LINES INSURANCE AGENT RN PEDIATRIC ICU Unavailable [phone] Jelena David OD Unavailable Pao Joseph RN Unavailable Unavailable Esha Grimm PA-C Unavailable [phone] Valery Veronica PA-C Unavailable [phone] Rey Tay MD Unavailable Rocky Zepeda DO Unavailable Philip Dumont MD Unavailable [phone] Meredith Carrera PA-C Unavailable [phone] Neil Kent MD Unavailable Juan Pablo Emmanuel MD Unavailable [phone] Audrey Waite PA-C Unavailable [phone] Valery Veronica PA-C Unavailable Herminia Hatch MD Unavailable Jelena David OD Unavailable Juan Pablo Emmanuel MD Unavailable [phone] Maru Man PA-C Unavailable [phone] Reason for Visit * Reason Onset Date Comments MyChart Communication 10/27/2022 Encounter Details Date Type Department Care Team (Late st Contact Info) Description 10/27/2022 MyC Medical Advice [facility] 64[address] [facility] [place] [address] Brea Quinn APRN [facility] 6401 [facility] [place] [address] MyChart Communication (/) Social History Tobacco Use [...] How often do you attend gnosticism or spiritism serv ices? Never 09/22/2021 Do [...] Answer Date Recorded PHQ-2 Score 1 10/11/2022 [facility] - Occupational Stress Questionnaire Answer [...] in a residential (including now)? No 09/22/2021 [place] Depression Scale Answer Date Recorded [place] Depression Score 5 01/14/2021 Last EPDS Self Harm Result Not on file 01/14 Education Answer Date Recorded What is the highest level of school you have completed or the highest degree you have received? 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 Gender Identity Female 03/02/2021 5:45 [...] Letha Driver RN [facility] Gloria Alvarenga [phone] documented in this encounter Plan of Treatment Upcoming Encounters Date Type Department Care Team (Late st Contact Info) Description 10/22/2024 11:00 AM CDT Office Visit [address] [phone] Maru Man PA-C [address] [place] [address] 8738[address] 10/23/2024 PRE VISIT [facility] Neurology Clinics - [address], [address] [place] [phone] Johnny Penn MD [address] [place] [address]13[address] Previsit 10/23/2024 9:30 AM CDT Office Visit [facility] Neurology [facility] [address] [facility], [address] [place] [phone] [place] [address] [place] [address] Johnny Penn MD [address] [facility] [place] [address] 10/24/2024 4:00 PM CDT Office Visit [facility] [address] [facility] [address] [place] [phone] Jelena David, [address] [facility] [place] [address] 10/31/2024 9:15 AM CDT Virtual Visit [facility] Gastroenterology Clinic [address] [phone] Meredith Carrera PA-C [address] [place] [address] 12/20/2024 2:30 PM CDT Office Visit [facility] [address] [place] [address] Esha Grimm PA-C [address] [place] [address] documented as of this encounter [...] as of this encounter Care Teams Industrial Electrician Relationship Specialty Start Date End Date Marija Edgar APRN RN PEDIATRIC ICU PCP - General Nurse Practitioner 04/30/20 04/14/23 Esha Grimm PA-C [address] [place] [address] PCP - General Family Medicine 05/04/23 Liat Oseguera Personal Advocate & Liaison (PAL) 02/28/20 03/27/23 Marija Edgar APRN RN PEDIATRIC ICU Assigned PCP 06/08/20 04/29/23 Keisha Dotson MD 909 [place], [place] 295895 Assigned Neuroscience Provider 06/04/20 04/01/23 Diana Desir [facility] [address] [facility] [place] [place] 7767[address] Pharmacist Pharmacist 04/17/21 Rain Galaviz PA-C [address] [facility] [address] [place] [address] Physician Baggage Agent Supervisor Dermatology 04/28/21 Tavia Wyatt MD [address] [place] [address] DR RA[address] [facility] [place] [phone] Dermatology 07/14/21 Erica Farrell APRN RN PEDIATRIC ICU [address] [place] [address] Nurse Practitioner Cardiovascular Disease 09/09/21 Rich Barrett MD [address] [place] 461305 Physician Ophthalmology 01/21/22 Neil Kent MD [address] [place] [address] Dermatology 02/24/22 [facility] [address] [place], [place] 168316 Assigned MTM Pharmacist 04/07/22 Livan Sharif MD [address] [place] 087085 Cardiovascular Disease 05/14/22 Catherine Cm MD [address] [place] 385775 Cardiovascular Disease 07/21/22 Valery Veronica, PA-C [address] [place] [address] Physician Baggage Agent Supervisor Dermatology 07/21/22 Catherine Cm MD [address] [place] [address] Assigned Heart and Vascular Provider 07/24/22 11/05/22 Brea Quinn APRN RN PEDIATRIC ICU 500 [facility], [place] 406[address] Nurse Practitioner Dermatology 09/21/22 Brea Quinn APRN RN PEDIATRIC ICU 6401 [facility] [place] 690402 Assigned Surgical Provider 10/09/22 05/01/24 [place] [address] [address] [facility] [address] [place] [address] Assigned Musculoskeletal Provider 10/09/22 05/01/24 Livan Sharif MD [address] [place] [address] Assigned Heart and Vascular Provider 11/06/22 11/12/22 Catherine Cm MD [address] [place] [address] Assigned Heart and Vascular Provider 11/13/22 05/27/23 Sydnie Martinez, RN Personal Advocate & Liaison (PAL) Family Medicine 03/28/23 07/31/23 Alfonso Renteria MD [address] [facility] 200 [place] [address] Assigned Neuroscience Provider 04/02/23 09/29/24 Cheng Todd PA-C [address] [place] [address] [phone] Assigned PCP 04/30/23 07/15/23 Armani Radha ARLENE Stovall RN PEDIATRIC ICU [address] [facility] [address] [place], [place] 7137[address] Assigned Heart and Vascular Provider 05/28/23 Jelena David OD [address] [place] [address] MD Ophthalmology 06/15/23 Pao Joseph, VJ Personal Advocate & Liaison (PAL) Nurse 08/01/23 11/07/23 Esha Grimm PA-C [address] [place] [phone] Assigned PCP 07/16/23 Valery Veronica PA-C [address] [place] [address] 410195 Physician Baggage Agent Supervisor Dermatology 09/19/23 Rey Tay MD [address] [place] [address] 620185 Gastroenterology 09/20/23 Rocky Zepeda DO [address] [place] [address] 063915 Physician Gastroenterology 09/20/23 Philip Dumont MD [address] [place] [address] Physician Ophthalmology 09/22/23 Meredith Carrera PA-C [address] [place] [address] Assigned Gastroenterology Provider 11/01/23 Neil Kent MD [address] [place] [address] MD Dermatology 11/02/23 [place] [address] [place] [address] Neurological Surgery 12/26/23 Audrey Waite PA-C [address] [place] [address] Physician Baggage Agent Supervisor Dermatology 02/28/24 Valery Veronica PA-C [address] [place] [address] Physician Baggage Agent Supervisor Dermatology 04/10/24 Herminia Hatch MD [address] [place] [address] [phone] Assigned Rheumatology Provider 07/02/24 Jelena David OD [address] [place] [address] [place] [address] Ophthalmology 08/30/24 [place] [address] [facility] [place] [address] Assigned Neuroscience Provider 09/30/24 Maru Man PA-C [address] [place] [address] Physician Baggage Agent Supervisor Dermatology 10/03/24 documented as of this encounter
--- OUTSIDE RECORDS SUMMARY | 2024-10-18 19:27 | XMS_ITS | Encounter Summary ---
Author Organization [facility] Address [address] [place] [address] Care Team Providers Care Postie Name Role Phone Lita Oseguera Unavailable Unavailable Marija Edgar APRN WATER/WASTEWATER PROJECT ENGINEER Primary Care Provider + Marija Edgar APRN WATER/WASTEWATER PROJECT ENGINEER Unavailable [phone] Keisha Dotson MD Unavailable Diana Desir [facility] Unavailable [phone] Rain Galaviz PA-C Unavailable Tavia Wyatt MD Unavailable Erica Farrell APRN WATER/WASTEWATER PROJECT ENGINEER Unavailable Rich Barrett MD Unavailable [phone] Neil Kent MD Unavailable Roney Stoyr DPM Unavailable Diana Desir [facility] Unavailable [phone] Jelena David OD Unavailable Livan Sharif MD Unavailable Livan Sharif MD Unavailable Catherine Cm MD Unavailable + Valery Veronica PA-C Unavailable Catherine Cm MD Unavailable + Johnny Murillo MD Unavailable [phone] Brea Quinn WINDOWS DESKTOP ENGINEER WATER/WASTEWATER PROJECT ENGINEER Unavailable [phone] Brea Quinn WINDOWS DESKTOP ENGINEER WATER/WASTEWATER PROJECT ENGINEER Unavailable [phone] Jose Francisco Johnson MD Unavailable Livan Sharif MD Unavailable Catherine Cm MD Unavailable + Sydnie Martinez RN Unavailable Unavailable Alfonso Renteria MD Unavailable [phone] Esha Grimm PA-C Primary Care Provider Cheng Todd PA-C Unavailable [phone] Radha Lomeli WINDOWS DESKTOP ENGINEER WATER/WASTEWATER PROJECT ENGINEER Unavailable Jeelna David OD Unavailable Pao Joseph RN Unavailable Unavailable Esha Grimm PA-C Unavailable [phone] Valeyr Veronica PA-C Unavailable Rey Tay MD Unavailable Rocky Zepeda DO Unavailable Philip Dumont MD Unavailable Meredith Carrera PA-C Unavailable Neil Kent MD Unavailable Juan Pablo Emmanuel MD Unavailable Audrey Waite PA-C Unavailable Valery Veronica PA-C Unavailable Hemrinia Hatch MD Unavailable Jelena David OD Unavailable Juan Pablo Emmanuel MD Unavailable Maru Man PA-C Unavailable [phone] Encounter Details Date Type Department Care Team (Late st Contact Info) Description 07/07/[address] [facility] [address] [facility] [address] [place] [address] Livan Sharif MD [address] [facility] [address] [place], [place] [phone] Social History Tobacco Use Types Packs/Day Years [...] How often do you attend gnosticism or scientologist serv ices? Never 09/22/2021 Do [...] Administer PHQ-9 if positive 1 05/13/2022 [facility] of Occupat [...] in a detention (including now)? No 09/22/2021 [place] Depression Scale Answer Date Recorded [place] Depression Score 5 01/14/2021 Last EPDS Self Harm Result Not on file 01/14 Education Answer Date Recorded What is the highest level of school you have completed or the highest degree you have received? 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 No / Unsure 06/25/2022 8:44 AM REROLLING MACHINE OPERATOR documented as of this encounter Plan of Treatment Upcoming Encounters Date Type Department Care Team (Late st Contact Info) Description 10/22/2024 11:00 AM CDT Office Visit [address] [phone] Maru Man PA-C [address] [place] [address] 10/23/2024 PRE VISIT [facility] Neurology [facility] - [address] [phone] Johnny Penn MD [address] [place] [address] Previsit 10/23/2024 9:30 AM CDT Office Visit [facility] Neurology [facility] - [address], [address] [place] [phone] [place] [address] [place] [address] Johnny Penn MD [address] [place] [address] 10/24/2024 4:00 PM CDT Office Visit [facility] [address] [place] [phone] Jelena David, [address] [facility] [place] [address] 10/31/2024 9:15 AM CDT Virtual Visit [facility] [address] [phone] Meredith Carrera PA-C [address] [place] [address] 12/20/2024 2:30 PM CDT Office Visit [facility] [id number] [place] [phone] Esha Grimm PA-C [id number] [place] [phone] documented as of this encounter Visit [...] documented as of this encounter Care Teams Postie Relationship Specialty Start Date End Date Marija Edgar APRN WATER/WASTEWATER PROJECT ENGINEER PCP - General Nurse Practitioner 04/30/20 04/14/23 Esha Grimm PA-C [address] [place] [address] PCP - General Family Medicine 05/04/23 Lita Oseguera Personal Advocate & Liaison (PAL) 02/28/20 03/27/23 Marija Edgar APRN WATER/WASTEWATER PROJECT ENGINEER Assigned PCP 06/08/20 04/29/23 Keisha Dotson MD [address] [place] [address] Assigned Neuroscience Provider 06/04/20 04/01/23 Diana Desir, [facility] [address] [place] [address] Pharmacist Pharmacist 04/17/21 Rain Galaviz PA-C [address] [place] [address] [place] [address] Physician Door Technician Dermatology 04/28/21 Tavia Wyatt MD [address] [place] [address] [address] [place] [address] Dermatology 07/14/21 Erica Farrell APRN WATER/WASTEWATER PROJECT ENGINEER [address] [place] [address] Nurse Practitioner Cardiovascular Disease 09/09/21 Rich Barrett MD [address] [place] [address] Physician Ophthalmology 01/21/22 Neil Kent MD 500 [place] [address] Dermatology 02/24/22 Roney Story DPM [address] [facility] [address] [place] [address] Assigned Musculoskeletal Provider 03/20/22 08/13/22 Diana Desir, [facility] [address] [place] [address] Assigned MTM Pharmacist 04/07/22 Jelena David OD [facility] [place] [address] Assigned Surgical Provider 05/08/22 10/08/22 Livan Sharif MD [address] [place] [address] Cardiovascular Disease 05/14/22 Livan Sharif MD [address] [place] 2622[address] Assigned Heart and Vascular Provider 06/12/22 07/23/22 Catherine Cm MD [address] 9344300 [place] [address] Cardiovascular Disease 07/21/22 Valery Veronica, PA-C [address] [place] [address] 440955 Physician Door Technician Dermatology 07/21/22 Catherine Cm MD [address] [address] Assigned Heart and Vascular Provider 07/24/22 11/05/22 Johnny Murillo MD [address] [place] [address] Assigned Musculoskeletal Provider 08/14/22 10/08/22 Brea Quinn APRN WATER/WASTEWATER PROJECT ENGINEER [address] [place] [address] 767995 Nurse Practitioner Dermatology 09/21/22 Brea Quinn APRN WATER/WASTEWATER PROJECT ENGINEER [address] [place] [address] Assigned Surgical Provider 10/09/22 05/01/24 [place] [address] [address] Assigned Musculoskeletal Provider 10/09/22 05/01/24 Livan Sharif MD [address] [place] [address] Assigned Heart and Vascular Provider 11/06/22 11/12/22 Catherine Cm MD [address] [place] [address] Assigned Heart and Vascular Provider 11/13/22 05/27/23 Sydnie Martinez RN Personal Advocate & Liaison (PAL) Family Medicine 03/28/23 07/31/23 Alfonso Renteria MD 5775 [facility] 200 [place] [address] Assigned Neuroscience Provider 04/02/23 09/29/24 Cheng Todd PA-C [address] [place] [address] Assigned PCP 04/30/23 07/15/23 Radha Lomeli APRN WATER/WASTEWATER PROJECT ENGINEER [address] [place] [address] Assigned Heart and Vascular Provider 05/28/23 Jelena David OD [facility] [place] [address] Ophthalmology 06/15/23 Pao Joseph, VJ Personal Advocate & Liaison (PAL) Nurse 08/01/23 11/07/23 Esha Grimm PA-C [address] [place] [address] Assigned PCP 07/16/23 Valery Veronica PA-C [address] [place] [address] Physician Door Technician Dermatology 09/19/23 Rey Tay MD [address] [place] [address] MD Gastroenterology 09/20/23 Rocky Zepeda DO [address] [place] [address] Physician Gastroenterology 09/20/23 Philip Dumont MD [address] [place] [address] Physician Ophthalmology 09/22/23 Meredith Carrera PA-C [address] [place] [address] Assigned Gastroenterology Provider 11/01/23 Neil Kent MD [address] [address] Dermatology 11/02/23 [place] [address] 771757 Neurological Surgery 12/26/23 Audrey Waite PA-C [address] [place] [address] 968635 Physician Door Technician Dermatology 02/28/24 Valery Veronica PA-C 419591 [address], [place] [address] Physician Door Technician Dermatology 04/10/24 Herminia Hatch MD [address] [place], [place] 28227125 Assigned Rheumatology Provider 07/02/24 Jelena David OD [address] [facility] [place] [address] Ophthalmology 08/30/24 [place] [address] [place] [address] Assigned Neuroscience Provider 09/30/24 Maru Man PA-C [address] [place] [address] Physician Door Technician Dermatology 10/03/24 documented as of this encounter
--- OUTSIDE RECORDS SUMMARY | 2024-10-18 19:27 | XMS_ITS | Encounter Summary ---
Author Organization [facility] Address [address] [place] [address] Care Team Providers Care Gummed Tape Press Operator Name Role Phone Lita Oseguera Unavailable Unavailable Mraija Edgar INSTRUMENT WORKER NURSE SPECIAL Primary Care Provider + Chanelle Mccann INSTRUMENT WORKER CNM Unavailab le Marija Edgar APRN NURSE SPECIAL Unavailable Mynor Broussard MD Unavailable [phone] Keisha Dotson MD Unavailable Galo Burrell MD Unavailable Unavailable Diana Desir [facility] Unavailable Rain Galaviz PA-C Unavailable [phone] Summer Lara MD Unavailable [phone] Summer Lara MD Unavailable [phone] Summer Lara MD Unavailable [phone] Tavia Wyatt MD Unavailable Johnny Murillo MD Unavailable Erica Farrell INSTRUMENT WORKER NURSE SPECIAL Unavailable Teresita Bean [facility] Unavailable Tavia Wyatt MD Unavailable DesirDiana [facility] Unavailable Rich Barrett MD Unavailable Neil Kent MD Unavailable Roney StoryM Unavailable [phone] Erica Farrell APRN NURSE SPECIAL Unavailable Diana Desir [facility] Unavailable [phone] Jelena David OD Unavailable [phone] Galo Burrell MD Unavailable Unavailable Livan Sharif MD Unavailable Livan Sharif MD Unavailable Catherine Cm MD Unavailable + Valery VeronicaC Unavailable [phone] Catherine Cm MD Unavailable + Johnny Murillo MD Unavailable [phone] Brea Quinn INSTRUMENT WORKER NURSE SPECIAL Unavailable [phone] Brea Quinn INSTRUMENT WORKER NURSE SPECIAL Unavailable [phone] Jose Francisco Johnson MD Unavailable Livan Sharif MD Unavailable Catherine Cm MD Unavailable + Sydnie Martinez RN Unavailable Unavailable Alfonso Renteria MD Unavailable Esha GrimmC Primary Care Provider Cheng Todd-C Unavailable [phone] Radha Lomeli APRN NURSE SPECIAL Unavailable [phone] Jelena David OD Unavailable [phone] Pao Joseph RN Unavailable Unavailable [place], Esha M PA-C Unavailable [phone] Valery Veronica PA-C Unavailable Rey Tay MD Unavailable ZepedaRocky woodard DO Unavailable Philip Dumont MD Unavailable Meredith Carrera PA-C Unavailable Neil Kent MD Unavailable Juan Pablo Emmanuel MD Unavailable Audrey Waite PA-C Unavailable Valery Veronica PA-C Unavailable Herminia Hatch MD Unavailable Jelena David OD Unavailable [phone] Juan Pablo Emmanuel MD Unavailable Maru Man PA-C Unavailable Encounter Details Date Type Department Care Team (Late st Contact Info) Description 04/17/2021 [facility] [address] [address] Diana Desir, [facility] [address] [place] [address] Social History Tobacco Use Types Packs/Day Years [...] Answer Date Recorded PHQ-2 Score 0 04/02/2021 [facility] [place] of Occupat ional Health - Occupational Stress [...] a senior care (including now)? No 08/11/2020 [place] Depression Scale Answer Date Recorded [place] Depression Score 5 01/14/2021 Last EPDS Self Harm Result Not on file 01/14 Education Answer Date Recorded What is the highest level of school you have completed or the highest degree you have received? 12th grade 08/07/2020 Comments No Sex and Gender Information Value Date Recorded Sex Assigned at Female 03/02/2021 5:45 PM CDT Legal Sex Female 4:13 AM LEATHER CRAFTER Gender Identity Female 03/02/2021 5:45 PM CDT [...] Description 10/22/2024 11:00 AM CDT Office Visit [facility] [address] [phone] Maru Man PA-C [address] [address] 10/23/[address] [facility] Neurology [facility] - [address], [address] [place] [phone] Johnny Penn MD [address] [place], [place] 3[address] Previsit 10/23/2024 9:30 AM CDT Office Visit [facility] Neurology [facility] - [address], [address] [place] [phone] [place] [address] [facility] [place] 073227 Johnny Penn MD [address] [place], [place] [address] 10/24/2024 4:00 PM CDT Office Visit [facility] [place] [address] [place] [phone] Jelena David, [address] [facility] [place] [address] 10/31/2024 9:15 AM CDT Virtual Visit [facility] Gastroenterology Clinic [address] 4th [place] [phone] Meredith Carrera PA-C [address] [place] [address] 12/20/2024 2:30 PM CDT Office Visit [facility] [address] [place] [address] Esha Grimm PA-C [address] [place] [address] documented as of this encounter Visit Diagnoses Not on filedocumented in this encounter Additional Health Concerns Infection Onset Date Last Indicated Resolved Time Rule Out COVID-19 05/11/2021 05/11/2021 05/13/2021 10:18 AM CDT Rule Out COVID-19 07/13/2021 07/13/2021 07/14/2021 3:04 PM LEATHER CRAFTER Rule Out COVID-19 07/18/2021 07/18/2021 07/20/2021 1:56 PM LEATHER CRAFTER COVID-19 07/18/2021 07/18/2021 08/08/2021 11:3 9 PM LEATHER CRAFTER Rule Out COVID-19 12/18/2021 12/18/2021 12/19/2021 11:34 AM CDT Rule Out COVID-19 02/24/2022 02/24/2022 02/25/2022 1:08 PM CDT Rule Out COVID-19 04/26/2022 04/26/2022 04/26/2022 6:47 AM CDT Rule Out COVID-19 05/17/2022 05/17/2022 05/17/2022 10:20 PM LEATHER CRAFTER Rule Out COVID-19 06/09/2022 06/09/2022 06/09/2022 9:35 AM LEATHER CRAFTER COVID-19 06/09/2022 06/09/2022 06/30/2022 11:4 1 PM LEATHER CRAFTER Rule Out COVID-19 11/10/2022 11/10/2022 11/11/2022 12:17 [...] documented as of this encounter Care Teams Gummed Tape Press Operator Relationship Specialty Start Date End Date Marija Edgar APRN NURSE SPECIAL PCP - General Nurse Practitioner 04/30/20 04/14/23 Esha Grimm PA-C [address] [place] [phone] PCP - General Family Medicine 05/04/23 Lita Oseguera Personal Advocate & Liaison (PAL) 02/28/20 03/27/23 Chanelle Mccann APRN CNM [address] [place] [address] 200 [place] [address] Assigned OBGYN Provider 05/02/2005/09 Marija Edgar APRN NURSE SPECIAL Assigned PCP 06/08/20 04/29/23 Mynor Broussard MD 6363 [facility] 500 [place] [address] Assigned Surgical Provider 06/01/20 11/28/21 Keisha Dotson MD 909 [place] [address] Assigned Neuroscience Provider 06/04/20 04/01/23 Galo Burrell MD Assigned Heart and Vascular Provider 10/05/20 04/02/22 [facility] 3033 [place] [address] Pharmacist Pharmacist 04/17/21 Rain Galaviz PA-C [address] [place] [address] [place] [address] Physician Dental Intern Dermatology 04/28/21 Summer Lara MD [address] [place] [address] Assigned OBGYN Provider 05/10/2105/23 Summer Lara MD [address] [place] [address] Assigned OBGYN Provider 05/31/21 2 Summer Lara MD [address] [place] [address] 588044 Assigned OBGYN Provider 05/24/2105/30 Tavia Wyatt MD [address] [place] [address] 335834 Dermatology 07/14/21 Johnny Murillo MD [facility] [address] [place] [address] Assigned Musculoskeletal Provider 08/30/21 03/17/22 Erica Farrell APRN NURSE SPECIAL [address] [id number] [place] [address] Nurse Practitioner Cardiovascular Disease 09/09/21 Teresita Bean [facility] [address] [facility] [address] [place] [phone] Pharmacist Pharmacist 09/24/21 09/29/21 Tavia Wyatt MD [address] [place] [address] Assigned Surgical Provider 11/29/21 05/07/22 Diana Desir [facility] [address] [place] [address] Assigned MTM Pharmacist 01/02/22 Rich Barrett MD [address] [place] [address] Physician Ophthalmology 01/21/22 Neil Kent MD 500 [place] [address] Dermatology 02/24/22 Roney Story DPM [address] [facility] 300 [place], [place] [address]48677 Assigned Musculoskeletal Provider 03/20/22 08/13/22 Erica Farrell APRN NURSE SPECIAL [address] [place] [address] Assigned Heart and Vascular Provider 04/03/22 04/16/22 Diana Desir [facility] [address] [place] [address] Assigned MTM Pharmacist 04/07/22 Jelena David OD [address] [facility] [place] [address] Assigned Surgical Provider 05/08/22 10/08/22 Galo Burrell MD Assigned Heart and Vascular Provider 04/17/22 06/11/22 Livan Sharif MD [address] [place], [place] 182085 Cardiovascular Disease 05/14/22 Livan Sharif MD [address] [place] [address] Assigned Heart and Vascular Provider 06/12/22 07/23/22 Catherine Cm MD [address] [place] [address]275 Cardiovascular Disease 07/21/22 Valery Veronica, PAUcheC [address]09 [place], [place] 734075 Physician Dental Intern Dermatology 07/21/22 Catherine Cm MD [address] [place] [address]725 Assigned Heart and Vascular Provider 07/24/22 11/05/22 Johnny Murillo MD [address] [facility] [address] [place] [address] 614894 Assigned Musculoskeletal Provider 08/14/22 10/08/22 Brea Quinn APRN NURSE SPECIAL 500 [place] [address] Nurse Practitioner Dermatology 09/21/22 Brea Quinn APRN NURSE SPECIAL 6401 [facility] [place] [address] Assigned Surgical Provider 10/09/22 05/01/24 [place] [address] [address] [facility] [address] [place], [place] 7[address]757 Assigned Musculoskeletal Provider 10/09/22 05/01/24 Livan Sharif MD [address] [facility] [address] [place] [address] Assigned Heart and Vascular Provider 11/06/22 11/12/22 Catherine Cm MD 6405 [facility] [address] [place] [address] Assigned Heart and Vascular Provider 11/13/22 05/27/23 Sydnie Martinez RN Personal Advocate & Liaison (PAL) Family Medicine 03/28/23 07/31/23 Alfonso Renteria MD [address] [facility] 200 [place], [place] [address]176 Assigned Neuroscience Provider 04/02/23 09/29/24 Cheng Todd PA-C [address] [place] [address] Assigned PCP 04/30/23 07/15/23 Radha Lomeli, INSTRUMENT WORKER NURSE SPECIAL 6405 [facility] [address] [place] [address] Assigned Heart and Vascular Provider 05/28/23 Jelena David OD [address] [facility] [place] [address] MD Ophthalmology 06/15/23 Pao Joseph, VJ Personal Advocate & Liaison (PAL) Nurse 08/01/23 11/07/23 Esha Grimm PA-C [address] [place] [phone] Assigned PCP 07/16/23 Valery Veronica PA-C [address] [place] [address] 227505 Physician Dental Intern Dermatology 09/19/23 Rey Tay MD [address] [place] [address] 532235 Gastroenterology 09/20/23 Rocky Zepeda DO [address] [place] [address] 782805 Physician Gastroenterology 09/20/23 Philip Dumont MD [address] [place] [address] 613355 Physician Ophthalmology 09/22/23 Meredith Carrera PA-C [address] [place] [address] Assigned Gastroenterology Provider 11/01/23 Neil Kent MD [address] [place] [address] Dermatology 11/02/23 [place] [address] [place] [address] Neurological Surgery 12/26/23 Audrey Waite PA-C 500 [place] [address] Physician Dental Intern Dermatology 02/28/24 Valery Veronica PA-C 444264 [place], [place] [address] Physician Dental Intern Dermatology 04/10/24 Herminia Hatch MD [address] [place] [address] Assigned Rheumatology Provider 07/02/24 Jelena David OD [address] [place] [address] [place] [address] Ophthalmology 08/30/24 [place] [address] [place] [address] Assigned Neuroscience Provider 09/30/24 Maru Man PA-C [address] [place] [address] Physician Dental Intern Dermatology 10/03/24 documented as of this encounter
--- OUTSIDE RECORDS SUMMARY | 2024-10-18 19:27 | XMS_ITS | Encounter Summary ---
Author Organization [place] Address [address] [place] [address] Care Team Providers Care Nuclear Plant Operator Name Role Phone Lita Oseguera Unavailable Unavailable Marija Edgar APRN PRESIDENT & FOUNDER Primary Care Provider + Marija Edgar APRN PRESIDENT & FOUNDER Unavailable Keisha Dotson MD Unavailable Diana Desir [facility] Unavailable [phone] Rain Galaviz PA-C Unavailable Tavia Wyatt MD Unavailable Erica Farrell APRN PRESIDENT & FOUNDER Unavailable Rich Barrett MD Unavailable [phone] Neil Kent MD Unavailable Diana Desir [facility] Unavailable [phone] Livan Sharif MD Unavailable Catherine Cm MD Unavailable + Valery Veronica PA-C Unavailable Catherine Cm MD Unavailable + Brea Quinn TISSUE PACKER PRESIDENT & FOUNDER Unavailable Brea Quinn TISSUE PACKER PRESIDENT & FOUNDER Unavailable [phone] Jose Francisco Johnson MD Unavailable Livan Sharif MD Unavailable Catherine Cm MD Unavailable + Sydnie Martinez RN Unavailable Unavailable Alfonso Renteria MD Unavailable [phone] Esha Grimm PA-C Primary Care Provider Cheng Todd PA-C Unavailable Radha Lomeli TISSUE PACKER PRESIDENT & FOUNDER Unavailable Jelena David OD Unavailable Pao Joseph RN Unavailable Unavailable Esha Grimm PA-C Unavailable [phone] Valery Veronica PA-C Unavailable Rey Tay MD Unavailable Rocky Zepeda DO Unavailable Philip Dumont MD Unavailable [phone] Meredith Carrera PA-C Unavailable [phone] Neil Kent MD Unavailable Juan Pablo Emmanuel MD Unavailable Audrey Waite PA-C Unavailable [phone] Valery Veronica PA-C Unavailable Herminia Hatch MD Unavailable Jelena David OD Unavailable Juan Pablo Emmanuel MD Unavailable Maru Man PA-C Unavailable [phone] Reason for Visit * Reason Onset Date Comments Pt. Information/instruction 10/11/2022 Appointment 10/11/2022 Encounter Details Date Type Department Care Team (Late st Contact Info) Description 10/11/[address] [facility] [place] [address] [facility] [address] [place], [place] [address] [place] [address] [place] [address] Pt. Information/instructio n; Appointment Social History Tobacco [...] How often do you attend gnosticism or zoroastrian serv ices? Never 09/22/2021 Do [...] Recorded PHQ-2 Score 1 10/11/2022 [facility] [place] of Occupat ional Health - Occupational Stress [...] in a penitentiary (including now)? No 09/22/2021 Aber[place] Depression Scale Answer Date Recorded [place] Depression Score 5 01/14/2021 Last EPDS Self Harm Result Not on file 01/14 Education Answer Date Recorded What is the highest level of school you have completed or the highest degree you have received? 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 Please see new request below from [facility] and advise. Mandi Byrd RN * Telephone Encounter - Treasure Lee - 10/15/2022 2:14 PM CDT [facility] Phone Message May a detailed message be left on voicemail: yes Reason for Call: Other: [facility] can also be conference in on patient's upcoming appointment (10/27). Action Taken: Other: [facility] Sports Medicine Travel Screening: Not Applicable * Telephone Encounter - Mary Easley - 10/12/2022 12:47 PM CDT Called [facility] to discuss what they are needing from 's office. No answer. Left message to call back Kristina Easley ATC * Telephone Encounter - Treasure Lee - 10/11/2022 10:05 AM CDT [facility] Call Center Phone Message May a detailed message be left on voicemail: yes Reason for Call: Other: Please contact patient's cartridge assembling machine adjusterRosalva so she can authorize patient's MRI. [facility]'s contact info: phone# [phone] fax# [phone] Action Taken: Other: [facility] Travel Screening: Not Applicable documented in this encounter Plan of Treatment Upcoming Encounters Date Type Department Care Team ([facility] Contact Info) Description 10/22/2024 11:00 AM CDT Office Visit [facility] [address] [phone] Maru Man PA-C [address] [place] [address] 094600 10/23/[address] [facility] - [address] [phone] Johnny Penn MD 6[address] [place], [place] [phone] Previsit 10/23/2024 9:30 AM CDT Office Visit [facility] - [address], [address] [phone] [place] [address] [place] [address] Johnny Penn MD [address] [place] [address] 10/24/2024 4:00 PM CDT Office Visit [facility] [place] [address] [facility] [address] [place] [phone] Jelena David, SONJA [address] [facility] [place] [address] 10/31/2024 9:15 AM CDT Virtual Visit [facility] [address] [place] [phone] Meredith Carrera PA-C [address] [place] [address] 12/20/2024 2:30 PM CDT Office Visit [facility] [address] [place] [phone] Esha Grimm PA-C [id number] [place] [phone] documented as of this encounter Visit [...] as of this encounter Care Teams Nuclear Plant Operator Relationship Specialty Start Date End Date Marija Edgar APRN PRESIDENT & FOUNDER PCP - General Nurse Practitioner 04/30/20 04/14/23 Esha Grimm PA-C [address] [place] [phone] PCP - General Family Medicine 05/04/23 Lita Oseguera Personal Advocate & Liaison (PAL) 02/28/20 03/27/23 Marija Edgar APRN PRESIDENT & FOUNDER Assigned PCP 06/08/20 04/29/23 Keisha Dotson MD 909 [place] [address] Assigned Neuroscience Provider 06/04/20 04/01/23 Diana Desir, [facility] [address] [place] [address] Pharmacist Pharmacist 04/17/21 Rain Galaviz PA-C [address] [place] [address] [address] [place] [address] Physician Bridal Stylist Sales Consultant Dermatology 04/28/21 Tavia Wyatt MD [address] [place] [address] [address] [place] [address] Dermatology 07/14/21 Erica Farrell APRN PRESIDENT & FOUNDER [address] [place] [address] Nurse Practitioner Cardiovascular Disease 09/09/21 Rich Barrett MD [address] [place] 39[address]85 Physician Ophthalmology 01/21/22 Neil Kent MD [address] [place], [place] [address] MD Dermatology 02/24/22 Diana Desir, [facility] [address] [place], [place] [address]076 Assigned MTM Pharmacist 04/07/22 Livan Sharif MD [address] [place] [address] Cardiovascular Disease 05/14/22 Catherine Cm MD [address] [place] [address] Cardiovascular Disease 07/21/22 Valery Veronica, PA-C [address] [place] [address] 203985 Physician Bridal Stylist Sales Consultant Dermatology 07/21/22 Catherine Cm MD [address] [place] [address]85 Assigned Heart and Vascular Provider 07/24/22 11/05/22 Brea Quinn APRN PRESIDENT & FOUNDER 500 [place] [address] Nurse Practitioner Dermatology 09/21/22 Brea Quinn APRN PRESIDENT & FOUNDER [address] [facility] [place] [address] Assigned Surgical Provider 10/09/22 05/01/24 [place] [address] [facility] [address] [place] [address] Assigned Musculoskeletal Provider 10/09/22 05/01/24 Livan Sharif MD [address] [facility] [address] [place] [address] Assigned Heart and Vascular Provider 11/06/22 11/12/22 Catherine Cm MD [address] [place] [id number] [place] [address] Assigned Heart and Vascular Provider 11/13/22 05/27/23 Sydnie Martinez RN Personal Advocate & Liaison (PAL) Family Medicine 03/28/23 07/31/23 Alfonso Renteria MD [address] [facility] 200 [place] [address] Assigned Neuroscience Provider 04/02/23 09/29/24 Cheng Todd PA-C [address] [place] [address] Assigned PCP 04/30/23 07/15/23 Radha Lomeli APRN PRESIDENT & FOUNDER [address] [facility] [address] [place] [address] Assigned Heart and Vascular Provider 05/28/23 Jelena David OD [address] [facility] [place] [address] MD Ophthalmology 06/15/23 Pao Joseph, RN Personal Advocate & Liaison (PAL) Nurse 08/01/23 11/07/23 Esha Grimm PA-C [address] [place] [phone] Assigned PCP 07/16/23 Valery Veronica PA-C [address] [place] [address] 555105 Physician Bridal Stylist Sales Consultant Dermatology 09/19/23 Rey Tay MD [address] [place] [address] 954235 MD Gastroenterology 09/20/23 Rocky Zepeda DO [address] [place] [address] 630925 Physician Gastroenterology 09/20/23 Philip Dumont MD [address] [place] [address] 631855 Physician Ophthalmology 09/22/23 Meredith Carrera PA-C [address] [place] [address] 568145 Assigned Gastroenterology Provider 11/01/23 Neil Kent MD [address] [phone] MD Dermatology 11/02/23 [place] [address] [place] [address] Neurological Surgery 12/26/23 Audrey Waite PA-C 500 [place] [address] Physician Bridal Stylist Sales Consultant Dermatology 02/28/24 Valery Veronica PA-C 6[address]169 [place] [address] Physician Bridal Stylist Sales Consultant Dermatology 04/10/24 Herminia Hatch MD [address] [place] [address] [id number] Assigned Rheumatology Provider 07/02/24 Jelena David OD [address] [place] [address] [place] [address] Ophthalmology 08/30/24 [place] [address] [place] [address] Assigned Neuroscience Provider 09/30/24 Maru Man PA-C [address], [place] [address] Physician Bridal Stylist Sales Consultant Dermatology 10/03/24 documented as of this encounter
--- OUTSIDE RECORDS SUMMARY | 2024-10-18 19:27 | XMS_ITS | Encounter Summary ---
Author Organization [facility] Address [address] [place] [address] Care Team Providers Care Robotics Technologist Name Role Phone Lita Oseguera Unavailable Unavailable Marija Edgar APRN DELIVERY DEPARTMENT SUPERVISOR Primary Care Provider + Marija Edgar APRN DELIVERY DEPARTMENT SUPERVISOR Unavailable [phone] Keisha Dotson MD Unavailable Diana Desir [facility] Unavailable Rain Galaviz PA-C Unavailable Tavia Wyatt MD Unavailable Erica Farrell APRN DELIVERY DEPARTMENT SUPERVISOR Unavailable Rich Barrett MD Unavailable [phone] Neil Kent MD Unavailable Roney Story DPM Unavailable Diana Desir [facility] Unavailable Jelena David OD Unavailable [phone] Livan Sharif MD Unavailable Livan Sharif MD Unavailable Catherine Cm MD Unavailable + Valery Veronica PA-C Unavailable Catherine Cm MD Unavailable + Johnny Murillo MD Unavailable [phone] Brea Quinn PASTRY CHEF DELIVERY DEPARTMENT SUPERVISOR Unavailable [phone] Brea Quinn PASTRY CHEF DELIVERY DEPARTMENT SUPERVISOR Unavailable [phone] Jose Francisco Johnson MD Unavailable Livan Sharif MD Unavailable Catherine Cm MD Unavailable + Sydnie Martinez RN Unavailable Unavailable Alfonso Renteria MD Unavailable [phone] Esha Grimm PA-C Primary Care Provider Cheng Todd PA-C Unavailable [phone] Radha Lomeli PASTRY CHEF DELIVERY DEPARTMENT SUPERVISOR Unavailable Jelena David OD Unavailable Pao Joseph RN Unavailable Unavailable Esha Grimm PA-C Unavailable [phone] Valery Veronica PA-C Unavailable Rey Tay [...] Contact Info) Description 07/02/2022 [facility] Medical Advice [address] [phone] Diana Desir, [facility] [address] [place] [address] Social History Tobacco Use Types Packs/Day Years [...] How often do you attend moravian or bahai serv ices? Never 09/22/2021 Do [...] if positive 1 05/13/2022 [facility] of Occupat ional Health - Occupational Stress [...] in a residential (including now)? No 09/22/2021 [place]wood Depression Scale Answer Date Recorded [place]wood Depression Score 5 01/14/2021 Last EPDS Self Harm Result Not on file 01/14 Education Answer Date Recorded What is the highest level of school you have completed or the highest degree you have received? 12th grade 08/07/2020 Comments No Sex and Gender Information Value Date Recorded Sex Assigned at Female 03/02/2021 5:45 PM CDT Legal Sex Female 4:13 AM TENNIS BALL COVERER HAND Gender Identity Female 03/02/2021 5:45 PM CDT Sexual Orientation Straight 02/28/2020 12 :51 AM CDT COVID-19 Exposure Response Date Recorded In the last 10 days, have yo u been in contact with someone who was confirmed or suspected to have Coronavirus/COVID-19? No / Unsure 06/25/2022 8:44 AM TENNIS BALL COVERER HAND documented as of this encounter Plan of Treatment Upcoming Encounters Date Type Department Care Team (Late st Contact Info) Description 10/22/2024 11:00 AM CDT Office Visit [address] [phone] Maru Man PA-C [address] [place] [address] 10/23/2024 PRE VISIT [facility] - [address] [phone] Johnny Penn MD [address] [place] [address] Previsit 10/23/2024 9:30 AM CDT Office Visit [facility] [address], [address] [phone] [place] [address] [address] [place] 639367 Johnny Penn MD [address] [place] [address] 10/24/2024 4:00 PM CDT Office Visit [facility] [address] [facility] [address] [place] [phone] Jelena David, [address] [facility] [place] [address] 10/31/2024 9:15 AM CDT Virtual Visit [facility] [address] [phone] Meredith Carrera PA-C [address] [place] [address] 12/20/2024 2:30 PM CDT Office Visit [facility] [address] [place] [phone] Esha Grimm PA-C [address] [place] [address] documented as of this encounter [...] as of this encounter Care Teams Robotics Technologist Relationship Specialty Start Date End Date Marija Edgar APRN DELIVERY DEPARTMENT SUPERVISOR PCP - General Nurse Practitioner 04/30/20 04/14/23 Esha Grimm PA-C [address] [place] [phone] PCP - General Family Medicine 05/04/23 Lita Oseguera Personal Advocate & Liaison (PAL) 02/28/20 03/27/23 Marija Edgar APRN DELIVERY DEPARTMENT SUPERVISOR Assigned PCP 06/08/20 04/29/23 Keisha Dotson MD [address] [place], [place] 126[address] Assigned Neuroscience Provider 06/04/20 04/01/23 Diana Desir, [facility] [address] [place] [address] Pharmacist Pharmacist 04/17/21 Rain Galaviz PA-C [address] [place] [address] [place] [address] Physician Safety Analyst Dermatology 04/28/21 Tavia Wyatt MD [address] [place] [address] [address] [facility] [place] [address] Dermatology 07/14/21 Erica Farrell APRN DELIVERY DEPARTMENT SUPERVISOR [address] [place] [address] Nurse Practitioner Cardiovascular Disease 09/09/21 Rich Barrett MD [address] [place] [address] Physician Ophthalmology 01/21/22 Neil Kent MD [address] [place] [address] Dermatology 02/24/22 Roney Story DPM [address] [facility] [address] [place] [address] Assigned Musculoskeletal Provider 03/20/22 08/13/22 [facility] [address] [place] [address] Assigned MTM Pharmacist 04/07/22 Jelena David OD [address] [place] [address] [place] [address] Assigned Surgical Provider 05/08/22 10/08/22 Livan Sharif MD [address] [place] 160[address] Cardiovascular Disease 05/14/22 Livan Sharif MD [address] [place] [address] Assigned Heart and Vascular Provider 06/12/22 07/23/22 Catherine Cm MD [address] [address] Cardiovascular Disease 07/21/22 Valery Veronica, PA-C [address] [place] [address] Physician Safety Analyst Dermatology 07/21/22 Catherine Cm MD [address] [address] Assigned Heart and Vascular Provider 07/24/22 11/05/22 Johnny Murillo MD [address] [place] [address] Assigned Musculoskeletal Provider 08/14/22 10/08/22 Brea Quinn APRN DELIVERY DEPARTMENT SUPERVISOR [address] [place] [address] 765445 Nurse Practitioner Dermatology 09/21/22 Brea Quinn APRN DELIVERY DEPARTMENT SUPERVISOR [address] [place] [address] Assigned Surgical Provider 10/09/22 05/01/24 [place] [address] [address] Assigned Musculoskeletal Provider 10/09/22 05/01/24 Livan Sharif MD [address] [place] [address] Assigned Heart and Vascular Provider 11/06/22 11/12/22 Catherine Cm MD [address] [place] [address] Assigned Heart and Vascular Provider 11/13/22 05/27/23 Sydnie Martinez RN Personal Advocate & Liaison (PAL) Family Medicine 03/28/23 07/31/23 Alfonso Renteria MD 5775 [facility] 200 [place] [address] Assigned Neuroscience Provider 04/02/23 09/29/24 Cheng Todd PA-C [address] [place] [address] Assigned PCP 04/30/23 07/15/23 Radha Lomeli APRN DELIVERY DEPARTMENT SUPERVISOR [address] [place] [address] Assigned Heart and Vascular Provider 05/28/23 Jelena David OD [facility] [facility] [place] [address] Ophthalmology 06/15/23 Pao Joseph, VJ Personal Advocate & Liaison (PAL) Nurse 08/01/23 11/07/23 Esha Grimm PA-C [address] [place] [address]287[address] Assigned PCP 07/16/23 Valery Veronica PA-C [address] [place] [address] Physician Safety Analyst Dermatology 09/19/23 Rey Tay MD [address] [place] [address] MD Gastroenterology 09/20/23 Rocky Zepeda DO [address] [place] [address] Physician Gastroenterology 09/20/23 Philip Dumont MD [address] [place] [address] Physician Ophthalmology 09/22/23 Meredith Carrera PA-C [address] [place] [address] Assigned Gastroenterology Provider 11/01/23 Neil Kent MD [address] [address] Dermatology 11/02/23 [place] [address] 117607 Neurological Surgery 12/26/23 Audrey Waite PA-C [address] [place] [address] 862325 Physician Safety Analyst Dermatology 02/28/24 Valery Veronica PA-C 269536 [place], [place] [address] Physician Safety Analyst Dermatology 04/10/24 Herminia Hatch MD [address]75 [place], [place] 74870125 Assigned Rheumatology Provider 07/02/24 Jelena David OD [address] [facility] [place] [address] Ophthalmology 08/30/24 [place] [address] [place] [address] Assigned Neuroscience Provider 09/30/24 Maru Man PA-C [address] [place] [address] Physician Safety Analyst Dermatology 10/03/24 documented as of this encounter
--- OUTSIDE RECORDS SUMMARY | 2024-10-18 19:27 | XMS_ITS | Encounter Summary ---
Author Organization [facility] Address [address] [place] [address] Care Team Providers Care Line Repairer Tower Name Role Phone Lita Oseguera Unavailable Unavailable Marija Edgar APRN CASCADE OPERATOR Primary Care Provider + Marija Edgar APRN CASCADE OPERATOR Unavailable Keisha Dotson MD Unavailable Diana Desir [facility] Unavailable Rain Galaviz PA-C Unavailable Tavia Wyatt MD Unavailable Erica Farrell APRN CASCADE OPERATOR Unavailable Rich Barrett MD Unavailable [phone] Neil Kent MD Unavailable Diana Desir [facility] Unavailable Jelena David OD Unavailable Livan Sharif MD Unavailable Catherine Cm MD Unavailable + Valery Veronica PA-C Unavailable Catherine Cm MD Unavailable + Johnny Murillo MD Unavailable [phone] Brea Quinn CONTROL SYSTEMS DEVELOPER CASCADE OPERATOR Unavailable [phone] Brea Quinn CONTROL SYSTEMS DEVELOPER CASCADE OPERATOR Unavailable [phone] Jose Francisco Johnson MD Unavailable Livan Sharif MD Unavailable Catherine Cm MD Unavailable + Sydnie Martinez RN Unavailable Unavailable Alfonso Renteria MD Unavailable [phone] Esha Grimm PA-C Primary Care Provider Cheng Todd PA-C Unavailable [phone] Radha Lomeli APRN CASCADE OPERATOR Unavailable Jelena David OD Unavailable Pao Joseph RN Unavailable Unavailable Esha Grimm PA-C Unavailable [phone] Valery Veronica PA-C Unavailable Rey Tay MD Unavailable Rocky Zepeda DO Unavailable Philip Dumont MD Unavailable Meredith Carrera PA-C Unavailable [phone] Neil Kent MD Unavailable Juan Pablo Emmanuel MD Unavailable [phone] Audrey Waite PA-C Unavailable Valery Veronica PA-C Unavailable Herminia Hatch MD Unavailable Jelena David OD Unavailable Juan Pablo Emmanuel MD Unavailable Maru Man PA-C Unavailable Reason for Visit * Reason Onset Date Comments Call Back 09/21/2022 Change of provid er request Encounter Details Date Type Department Care Team (Late st Contact Info) Description 09/21/2022 Telephone [facility] [address], [address] [place] [address] Keisha Dotson MD [address] [place] [address] Call Back (Change of provider request) [...] How often do you attend baptism or yazidi serv ices? Never 09/22/2021 Do [...] Answer Date Recorded PHQ-2 Score 2 08/27/2022 [facility] [...] a long term (including now)? No 09/22/2021 [place] Depression Scale [...] Legal Sex Female 4:13 AM PRODUCT MARKETING DIRECTOR Gender Identity Female 03/02/2021 5:45 PM [...] another provider. Please call Pt back at [phone] to scheduled or advise. Action Taken: Message routed to: [facility] [facility] Travel Screening: Not Applicable documented in this encounter Plan of Treatment Upcoming Encounters Date Type Department Care Team (Late st Contact Info) Description 10/22/2024 11:00 AM CDT Office Visit [facility] [address] [address] Maru Man PA-C [address] 8897[address] 10/23/2024 PRE VISIT [facility] Neu[facility] [address] [facility], [address] [place] [phone] Johnny Penn MD [address] [place] 44[address] Previsit 10/23/2024 9:30 AM CDT Office Visit [facility] [address] [facility], [address] [place] [phone] [place] [address] [place], [place] 40[address] Johnny Penn MD [address] [place] [address] 10/24/2024 4:00 PM CDT Office Visit [facility] [address] [facility] [address] [place] [phone] Jelena David, [address] [facility] [place] [address] 10/31/2024 9:15 AM CDT Virtual Visit [facility] [address] [place] [phone] Meredith Carrera PA-C [address] [place], [place] 0470[address] 12/20/2024 2:30 PM CDT Office Visit [facility] [address] [place] [address] Esha Grimm PA-C [address] [place] [address] documented as of this encounter [...] Depression Total Score: 5 08/27/19 1:14 PM PRODUCT MARKETING DIRECTOR documented as of this encounter Care Teams Line Repairer Tower Relationship Specialty Start Date End Date Marija Edgar APRN CASCADE OPERATOR PCP - General Nurse Practitioner 04/30/20 04/14/23 Esha Grimm PAUcheC [address] [place] [phone] PCP - General Family Medicine 05/04/23 Lita Oseguera Personal Advocate & Liaison (PAL) 02/28/20 03/27/23 Marija Edgar APRN CASCADE OPERATOR Assigned PCP 06/08/20 04/29/23 Keisha Dotson MD [address]09 [place] [address] Assigned Neuroscience Provider 06/04/20 04/01/23 Diana Desir [facility] [address]33 [place] [address] Pharmacist Pharmacist 04/17/21 Rain Galaviz PA-C [address] [place] [address] [address] [place] [address] Physician Mails Supervisor Dermatology 04/28/21 Tavia Wyatt MD [address] [place] [address] [address] [place] [address] Dermatology 07/14/21 Erica Farrell APRN CASCADE OPERATOR [address] [place] [address] Nurse Practitioner Cardiovascular Disease 09/09/21 Rich Barrett MD [address] [place] [address] Physician Ophthalmology 01/21/22 Neil Kent MD 500 [place] [address] Dermatology 02/24/22 Diana Desir, [facility] [address] [place] [address] Assigned MTM Pharmacist 04/07/22 [place] [address] [place] [address] [place] [address] Assigned Surgical Provider 05/08/22 10/08/22 Livan Sharif MD [address] [place] 739425 Cardiovascular Disease 05/14/22 Catherine Cm MD [address] [facility] [place] [address] Cardiovascular Disease 07/21/22 Valery Veronica, PA-C [address] [place] [address] Physician Mails Supervisor Dermatology 07/21/22 Catherine Cm MD [address] [address] Assigned Heart and Vascular Provider 07/24/22 11/05/22 Johnny Murillo MD [address] [place] [address] Assigned Musculoskeletal Provider 08/14/22 10/08/22 Brea Quinn APRN CASCADE OPERATOR [address] [place] [address] Nurse Practitioner Dermatology 09/21/22 Brea Quinn APRN CASCADE OPERATOR [address] [place] [address] Assigned Surgical Provider 10/09/22 05/01/24 [place] [address] [place] [address] Assigned Musculoskeletal Provider 10/09/22 05/01/24 Livan Sharif MD [address] [place] [address] Assigned Heart and Vascular Provider 11/06/22 11/12/22 Catherine Cm MD [address] [facility] [address] [place] [address] Assigned Heart and Vascular Provider 11/13/22 05/27/23 Sydnie Martinez RN Personal Advocate & Liaison (PAL) Family Medicine 03/28/23 07/31/23 Alfonso Renteria MD [address] [facility] 200 [place] [address] Assigned Neuroscience Provider 04/02/23 09/29/24 Cheng Todd PA-C [address] [place] [address] Assigned PCP 04/30/23 07/15/23 Radha Lomeli APRN CASCADE OPERATOR [address] [place] [address] Assigned Heart and Vascular Provider 05/28/23 Jelena David OD [facility] [facility] [place] [address] Ophthalmology 06/15/23 Pao Joseph, VJ Personal Advocate & Liaison (PAL) Nurse 08/01/23 11/07/23 Esha Grimm PA-C [address] [place] [phone] Assigned PCP 07/16/23 Valery Veronica PA-C [address] [place] [address] Physician Mails Supervisor Dermatology 09/19/23 Rey Tay MD [address] [place] [address] MD Gastroenterology 09/20/23 Rocky Zepeda DO [address] [place] [address] Physician Gastroenterology 09/20/23 Philip Dumont MD [address] [place] [address] 640345 Physician Ophthalmology 09/22/23 Meredith Carrera PA-C [address] [place] [address] 681045 Assigned Gastroenterology Provider 11/01/23 Neil Kent MD [address] 300350 Dermatology 11/02/23 [place] [address] [address] Neurological Surgery 12/26/23 Audrey Waite PA-C [address] [place] [address] Physician Mails Supervisor Dermatology 02/28/24 Valery Veronica PA-C 177998 [place] [address] Physician Mails Supervisor Dermatology 04/10/24 Herminia Hatch MD [address]75 [place], [place] 58098125 Assigned Rheumatology Provider 07/02/24 Jelena David OD [address] [facility] [place] [address] Ophthalmology 08/30/24 [place] [address] [place] [address] Assigned Neuroscience Provider 09/30/24 Maru Man PA-C [address] [place] [address] Physician Mails Supervisor Dermatology 10/03/24 documented as of this encounter
--- OUTSIDE RECORDS SUMMARY | 2024-10-18 19:27 | XMS_ITS | Encounter Summary ---
Author Organization [facility] Address [address] [place] [address] Care Team Providers Care Roto Rooter Operator Name Role Phone Lita Oseguera Unavailable Unavailable Marija Edgar APRN FUND DEVELOPMENT MANAGER Primary Care Provider + Marija Edgar APRN FUND DEVELOPMENT MANAGER Unavailable Keisha Dotson MD Unavailable Diana Desir [facility] Unavailable [phone] Rain Galaviz PA-C Unavailable Tavia Wyatt MD Unavailable [phone] Erica Farrell APRN FUND DEVELOPMENT MANAGER Unavailable Rich Barrett MD Unavailable [phone] Neil [place] MD Unavailable Diana Desir [facility] Unavailable Jelena David OD Unavailable Livan Sharif MD Unavailable Catherine Cm MD Unavailable + Valery Veronica PA-C Unavailable [phone] Catherine Cm MD Unavailable + Johnny Murillo MD Unavailable [phone] Brea Quinn BENCH ASSEMBLER ELECTRICAL FUND DEVELOPMENT MANAGER Unavailable [phone] Brea Quinn BENCH ASSEMBLER ELECTRICAL FUND DEVELOPMENT MANAGER Unavailable [phone] Jose Francisco Johnson MD Unavailable Livan Sharif MD Unavailable Catherine Cm MD Unavailable + Sydnie Martinez RN Unavailable Unavailable Alfonso Renteria MD Unavailable [phone] Esha Grimm PA-C Primary Care Provider Cheng Todd PA-C Unavailable [phone] Radha Lomeli APRN FUND DEVELOPMENT MANAGER Unavailable Jelena David OD Unavailable [phone] Pao Joseph RN Unavailable Unavailable Esha Grimm PA-C Unavailable [phone] Valery Veronica PA-C Unavailable Rey Tay MD Unavailable Rocky Zepeda DO Unavailable Philip Dumont MD Unavailable Meredith Carrera PA-C Unavailable [phone] Neil [place] MD Unavailable Juan Pablo Emmanuel MD Unavailable Audrey Waite PA-C Unavailable Valery Veronica PA-C Unavailable Herminia Hatch MD Unavailable Jelena David OD Unavailable Juan Pablo Emmanuel MD Unavailable Maru Man PA-C Unavailable Encounter Details Date Type Department Care Team (Late st Contact Info) Description 10/06/2022 MyC Medical Advice [facility] [address] [facility] [place] [phone] Brea Quinn APRN [facility] [address] [facility] [place] [address] Social History Tobacco Use Types Packs/Day Years [...] How often do you attend confucianism or lutheran serv ices? Never 09/22/2021 Do [...] points; Administer PHQ-9 if positive 1 10/10/2022 [facility] [...] in a halfway (including now)? No 09/22/2021 [place] Depression Scale Answer Date Recorded [place] Depression Score 5 01/14/2021 Last EPDS Self Harm Result Not on file 01/14 Education Answer Date Recorded What is the highest level of school you have completed or the highest degree you have received? 12th grade 08/07/2020 Comments No Sex and Gender Information Value Date Recorded Sex Assigned at Female 03/02/2021 5:45 PM CDT Legal Sex Female 4:13 AM PROSTHETICS TECHNICIAN Gender Identity Female 03/02/2021 5:45 PM [...] Description 10/22/2024 11:00 AM CDT Office Visit [address] [phone] Maru Man PA-C [address] [place] [address] 10/23/2024 PRE VISIT [facility] [address], [address] [place] [phone] Johnny Penn MD [address] [facility] [address] [place], [place] [address] Previsit 10/23/2024 9:30 AM CDT Office Visit [facility] - [address], [address] [place] [phone] Juan [place] [address] [place] [address] [place] [address] Johnny Penn MD [address] [place] [address] 10/24/2024 4:00 PM CDT [facility] [address] [facility] [address] [place] [phone] Jelena David, [address] [facility] [place] [address] 10/31/2024 9:15 AM CDT Virtual Visit [facility] [address] 4th [place] [phone] Meredith Carrera PA-C [address] [place] [address] 12/20/2024 2:30 PM CDT Office Visit [address] [phone] Esha Grimm PA-C [address] [place] [phone] documented as of this encounter Visit Diagnoses [...] Depression Total Score: 5 08/27/19 1:14 PM PROSTHETICS TECHNICIAN documented as of this encounter Care Teams Roto Rooter Operator Relationship Specialty Start Date End Date Marija Edgar APRN FUND DEVELOPMENT MANAGER PCP - General Nurse Practitioner 04/30/20 04/14/23 Esha Grimm PA-C [address] [place] [phone] PCP - General Family Medicine 05/04/23 Lita Oseguera Personal Advocate & Liaison (PAL) 02/28/20 03/27/23 Marija Edgar APRN FUND DEVELOPMENT MANAGER Assigned PCP 06/08/20 04/29/23 Keisha Dotson MD 909 [place], [place] 810975 Assigned Neuroscience Provider 06/04/20 04/01/23 Diana Deisr, [facility] [address] [place] [address] Pharmacist Pharmacist 04/17/21 Rain Galaviz PA-C [address] [place] [address] [place] [phone] Physician Low Pressure Kettle Operator Dermatology 04/28/21 Tavia Wyatt MD [address] [place] [address] [place] [phone] Dermatology 07/14/21 Erica Farrell APRN FUND DEVELOPMENT MANAGER [address] [place] [address] Nurse Practitioner Cardiovascular Disease 09/09/21 Rich Barrett MD [address] [place] [address] Physician Ophthalmology 01/21/22 Neil Kent MD 500 [place], [place] [phone] Dermatology 02/24/22 [facility] 3033 [place], [place] 387146 Assigned MTM Pharmacist 04/07/22 Jelena David OD [address] [facility] [place] [address] Assigned Surgical Provider 05/08/22 10/08/22 Livan Sharif MD [address] [place] [address] Cardiovascular Disease 05/14/22 Catherine Cm MD [address] [place] 898895 Cardiovascular Disease 07/21/22 Valery Veronica, PA-C 909 [place] [address] Physician Low Pressure Kettle Operator Dermatology 07/21/22 Catherine Cm MD [address] [facility] [address] [place] [address] Assigned Heart and Vascular Provider 07/24/22 11/05/22 Johnny Murillo MD [address] 574404 Assigned Musculoskeletal Provider 08/14/22 10/08/22 Brea Quinn APRN FUND DEVELOPMENT MANAGER [address] [place] [address] 750965 Nurse Practitioner Dermatology 09/21/22 Brea Quinn APRN FUND DEVELOPMENT MANAGER [address] [facility] [place] [address] Assigned Surgical Provider 10/09/22 05/01/24 [place] [address] 986[address] Assigned Musculoskeletal Provider 10/09/22 05/01/24 Livan Sharif MD [address] [place] [address] [place] [address] Assigned Heart and Vascular Provider 11/06/22 11/12/22 Catherine Cm MD [address] [facility] [address] [place] [address] [place] 681075 Assigned Heart and Vascular Provider 11/13/22 05/27/23 Sydnie Martinez RN Personal Advocate & Liaison (PAL) Family Medicine 03/28/23 07/31/23 Alfonso Renteria MD [address] [facility] [address] [place] [address] Assigned Neuroscience Provider 04/02/23 09/29/24 Cheng Todd PA-C [address] [place] [address] Assigned PCP 04/30/23 07/15/23 Radha Lomeli, ARLENE FUND DEVELOPMENT MANAGER [address] [facility] [address] [place], [place] 678[address] Assigned Heart and Vascular Provider 05/28/23 Jelena David OD [address] [facility] [address] Ophthalmology 06/15/23 Pao Joseph, VJ Personal Advocate & Liaison (PAL) Nurse 08/01/23 11/07/23 Esha Grimm PA-C [address] [place] [phone] Assigned PCP 07/16/23 Valery Veronica PA-C [address] [place] [address] 437195 Physician Low Pressure Kettle Operator Dermatology 09/19/23 Rey Tay MD [address] [place] [address] 650365 Gastroenterology 09/20/23 Rocky Zepeda DO [address] [place] [address] 756395 Physician Gastroenterology 09/20/23 Philip Dumont MD [address] [place] [address] Physician Ophthalmology 09/22/23 Meredith Carrera PA-C [address] [place] [address] Assigned Gastroenterology Provider 11/01/23 Neil Kent MD [address] [address] Dermatology 11/02/23 [place] [address] [place], [place] 0[address] Neurological Surgery 12/26/23 Audrey Waite PA-C [address] [place] [address] Physician Low Pressure Kettle Operator Dermatology 02/28/24 Valery Veronica PA-C [address] [place] [address] Physician Low Pressure Kettle Operator Dermatology 04/10/24 Herminia Hatch MD [address] [place] [address] [id number] Assigned Rheumatology Provider 07/02/24 Jelena David OD [address] [place] [address] [place] [address] Ophthalmology 08/30/24 [place] [address] [place] [address] Assigned Neuroscience Provider 09/30/24 Maru Man PA-C [address] [place] [address] Physician Low Pressure Kettle Operator Dermatology 10/03/24 documented as of this encounter
--- OUTSIDE RECORDS SUMMARY | 2024-10-18 19:27 | XMS_ITS | Encounter Summary ---
Author Organization [facility] Address [address] [place] [address] Care Team Providers Care Marketing Communication Manager Name Role Phone Lita Oseguera Unavailable Unavailable Marija Edgar APRN RAW MATERIAL HANDLER Primary Care Provider + Marija Edgar APRN RAW MATERIAL HANDLER Unavailable [phone] Keisha Dotson MD Unavailable [phone] Diana Desir [facility] Unavailable [phone] Rain Galaviz PA-C Unavailable Tavia Wyatt MD Unavailable Erica Farrell APRN RAW MATERIAL HANDLER Unavailable Rich Barrett MD Unavailable [phone] Neil Kent MD Unavailable Roney Story DPM Unavailable Diana Desir [facility] Unavailable Jelena David OD Unavailable [phone] Livan Sharif MD Unavailable Livan Sharif MD Unavailable Catherine Cm MD Unavailable + Valery Veronica PA-C Unavailable Catherine Cm MD Unavailable + Johnny Murillo MD Unavailable [phone] Brea Quinn PUMP TECHNICIAN RAW MATERIAL HANDLER Unavailable [phone] Brea Quinn PUMP TECHNICIAN RAW MATERIAL HANDLER Unavailable [phone] Jose Francisco Johnson MD Unavailable Livan Sharif MD Unavailable Catherine Cm MD Unavailable + Sydnie Martinez RN Unavailable Unavailable Alfonso Renteria MD Unavailable [phone] Esha Grimm PA-C Primary Care Provider Cheng Todd PA-C Unavailable [phone] Radha Lomeli PUMP TECHNICIAN RAW MATERIAL HANDLER Unavailable Jelena David OD Unavailable Pao Joseph RN Unavailable Unavailable Esha Grimm PA-C Unavailable [phone] Valery Veronica PA-C Unavailable Rey Tay MD Unavailable Rocky Zepeda DO Unavailable Philip Dumont MD Unavailable Meredith Carrera PA-C Unavailable Neil Kent MD Unavailable Juan Pablo Emmanuel MD Unavailable [phone] Audrey Waite PA-C Unavailable Valery Veronica PA-C Unavailable Herminia Hatch MD Unavailable Jelena David OD Unavailable [phone] Juan Pablo Emmanuel MD Unavailable Maru Man PA-C Unavailable [phone] Encounter Details Date Type Department Care Team (Late st Contact Info) Description 07/20/2022 MyC Medical Advice [facility] [address] [facility] [address] [place] [address] Livan Sharif MD [address] [facility] [address] [place], [place] [id number] Social History Tobacco Use Types Packs/Day Years [...] How often do you attend sikh or yarsanism serv ices? Never 09/22/2021 Do [...] points; Administer PHQ-9 if positive 1 05/13/2022 [facility] of Occupat [...] a nursing home (including now)? No 09/22/2021 A[place] Depression Scale Answer Date Recorded A[place] Depression Score 5 01/14/2021 Last EPDS Self Harm Result Not on file 01/14 Education Answer Date Recorded What is the highest level of school you have completed or the highest degree you have received? 12th grade 08/07/2020 Comments No Sex and Gender Information Value Date Recorded Sex Assigned at Female 03/02/2021 5:45 PM CDT Legal Sex Female 4:13 AM CARBOY FILLER Gender Identity Female 03/02/2021 5:45 PM CDT Sexual Orientation Straight 02/28/2020 12 :51 AM CDT COVID-19 Exposure Response Date Recorded In the last 10 days, have yo u been in contact with someone who was confirmed or suspected to have Coronavirus/COVID-19? No / Unsure 07/23/2022 6:45 AM CARBOY FILLER documented as of this encounter Plan of Treatment Upcoming Encounters Date Type Department Care Team (Late st Contact Info) Description 10/22/2024 11:00 AM CDT Office Visit [address] [phone] Maru Man PA-C [address] [place] [address] 10/23/2024 PRE VISIT [facility] Neurology [facility] - [address], [address] [phone] Johnny Penn MD [address] [place] [address] Previsit 10/23/2024 9:30 AM CDT Office Visit [facility] Neurology [facility] - [address], [address] [place] [phone] [place] [address] [place] [address] Johnny Penn MD [address] [place] [place] [address] 10/24/2024 4:00 PM CDT Office Visit [facility] [address] [facility] [address] [place] [phone] Jelena David, [address] [facility] [place] [address] 10/31/2024 9:15 AM CDT Virtual Visit [facility] G[facility]ology Clinic [address] [phone] Meredith Carrera PA-C [address] [place] [address] 12/20/2024 2:30 PM CDT Office Visit [facility] [address] [place] [phone] Esha Grimm PA-C [address] [place] [phone] documented as of this encounter Visit [...] as of this encounter Care Teams Marketing Communication Manager Relationship Specialty Start Date End Date Marija Edgar APRN RAW MATERIAL HANDLER PCP - General Nurse Practitioner 04/30/20 04/14/23 Esha Grimm PA-C [address] [place] [address] PCP - General Family Medicine 05/04/23 Lita Oseguera Personal Advocate & Liaison (PAL) 02/28/20 03/27/23 Marija Edgar APRN RAW MATERIAL HANDLER Assigned PCP 06/08/20 04/29/23 Keisha Dotson MD 909 [place] [address] Assigned Neuroscience Provider 06/04/20 04/01/23 Diana Desir, [facility] 3033 [place] [address] Pharmacist Pharmacist 04/17/21 Rain Galaviz PA-C [address] [place] [address] [place] [address] Physician Optical Instrument Repairer Dermatology 04/28/21 Tavia Wyatt MD [address] [place] [address] [address] [place] [address] Dermatology 07/14/21 Erica Farrell APRN RAW MATERIAL HANDLER [address] [place] [address] Nurse Practitioner Cardiovascular Disease 09/09/21 Rich Barrett MD [address] [place] [address] Physician Ophthalmology 01/21/22 Neil Kent MD 500 [place] [address] Dermatology 02/24/22 Roney Story DPM [address] [facility] [address] [place] [address] Assigned Musculoskeletal Provider 03/20/22 08/13/22 Diana Desir, [facility] [address] [place] [address] Assigned MTM Pharmacist 04/07/22 Jelena David OD [facility] [facility] [place] [address] Assigned Surgical Provider 05/08/22 10/08/22 Livan Sharif MD [address] [place] [address] Cardiovascular Disease 05/14/22 Livan Sharif MD [address] [place] [address] Assigned Heart and Vascular Provider 06/12/22 07/23/22 Catherine Cm MD [address] [id number] [place] [address] Cardiovascular Disease 07/21/22 Valery Veronica, PA-C [address] [place] [address] 480755 Physician Optical Instrument Repairer Dermatology 07/21/22 Catherine Cm MD [address] [address] Assigned Heart and Vascular Provider 07/24/22 11/05/22 Johnny Murillo MD [address] [place] [address] Assigned Musculoskeletal Provider 08/14/22 10/08/22 Brea Quinn APRN RAW MATERIAL HANDLER [address] [place] [address] 160075 Nurse Practitioner Dermatology 09/21/22 Brea Quinn APRN RAW MATERIAL HANDLER [address] [place] [address] Assigned Surgical Provider 10/09/22 05/01/24 [place] [address] [address] Assigned Musculoskeletal Provider 10/09/22 05/01/24 Livan Sharif MD [address] [place] [address] Assigned Heart and Vascular Provider 11/06/22 11/12/22 Catherine Cm MD [address] [place] [address] Assigned Heart and Vascular Provider 11/13/22 05/27/23 Sydnie Martinez RN Personal Advocate & Liaison (PAL) Family Medicine 03/28/23 07/31/23 Alfonso Renteria MD 5775 [facility] 200 [place] [address] Assigned Neuroscience Provider 04/02/23 09/29/24 Cheng Todd PA-C [address] [place] [address] Assigned PCP 04/30/23 07/15/23 Radha Lomeli APRN RAW MATERIAL HANDLER [address] [place] [address] Assigned Heart and Vascular Provider 05/28/23 Jelena David OD [facility]5 [facility] [address] Ophthalmology 06/15/23 Pao Joseph, VJ Personal Advocate & Liaison (PAL) Nurse 08/01/23 11/07/23 Esha Grimm PA-C [address] [place] [address] Assigned PCP 07/16/23 Valery Veronica PA-C [address] [place] [address] Physician Optical Instrument Repairer Dermatology 09/19/23 Rey Tay MD [address] [place] [address] MD Gastroenterology 09/20/23 Rocky Zepeda DO [address] [place] [address] Physician Gastroenterology 09/20/23 Philip Dumont MD [address] [place] [address] Physician Ophthalmology 09/22/23 Meredith Carrera PA-C [address] [place] [address] Assigned Gastroenterology Provider 11/01/23 Neil Kent MD [address] [address] Dermatology 11/02/23 [place] [address] 875277 Neurological Surgery 12/26/23 Adurey Waite PA-C [address] [place] [address] 338135 Physician Optical Instrument Repairer Dermatology 02/28/24 Valery Veronica PA-C 263423 [place], [place] [address] Physician Optical Instrument Repairer Dermatology 04/10/24 Herminia Hatch MD [address]75 [place], [place] 29926[address] Assigned Rheumatology Provider 07/02/24 Jelena David OD [address] [facility] [place] [address] Ophthalmology 08/30/24 [place] [address] [place] [address] Assigned Neuroscience Provider 09/30/24 Maru Man PA-C [address] [place] [address] Physician Optical Instrument Repairer Dermatology 10/03/24 documented as of this encounter
--- OUTSIDE RECORDS SUMMARY | 2024-10-18 19:27 | XMS_ITS | Encounter Summary ---
Author Organization [facility] Address [address] [place] [address] Care Team Providers Care Cigar Packer Name Role Phone Lita Oseguera Unavailable Unavailable Marija Edgar APRN DISTRICT MEDICAL EXAMINER Primary Care Provider + Chanelle Mccann APRN CNM Unavailab le Kyara De La Fuente RN Unavailable [phone] Marija Edgar APRN DISTRICT MEDICAL EXAMINER Unavailable [phone] Mynor Broussard MD Unavailable [phone] Keisha Dotson MD Unavailable Galo Burrell MD Unavailable Unavailable Cristina Wood Unavailable Diana Desir [facility] Unavailable Rain Galaviz PA-C Unavailable Summer Lara MD Unavailable [phone] Summer Lara MD Unavailable [phone] Summer Lara MD Unavailable [phone] Tavia Wyatt MD Unavailable Johnny Murillo MD Unavailable [phone] Erica Farrell APRN DISTRICT MEDICAL EXAMINER Unavailable VikasTeresita [facility] Unavailable Tavia Wyatt MD Unavailable Diana Desir [facility] Unavailable Rich Barrett MD Unavailable [phone] Neil Kent MD Unavailable Roney Story DP Unavailable Erica Farrell APRN DISTRICT MEDICAL EXAMINER Unavailable Diana Desir [facility] Unavailable Jelena David Unavailable Galo Burrell MD Unavailable Unavailable Livan Sharif MD Unavailable Livan Sharif MD Unavailable Catherine Cm MD Unavailable + Valery Veronica-C Unavailable [phone] Catherine Cm MD Unavailable + Johnny Murillo MD Unavailable [phone] Brea Quinn RUBBER STAMP DIE INSPECTOR DISTRICT MEDICAL EXAMINER Unavailable [phone] Brea Quinn RUBBER STAMP DIE INSPECTOR DISTRICT MEDICAL EXAMINER Unavailable [phone] Jose Francisco Johnson MD Unavailable Livan Sharif MD Unavailable Catherine Cm MD Unavailable + Sydnie Martinez RN Unavailable Unavailable Alfonso Renteria MD Unavailable Esha Grimm PA-C Primary Care Provider Cheng Todd PA-C Unavailable Radha Lomeli RUBBER STAMP DIE INSPECTOR DISTRICT MEDICAL EXAMINER Unavailable Jelena David OD Unavailable Pao Joseph RN Unavailable Unavailable Alfa Esha M PA-C Unavailable [phone] Valery Veronica PA-C Unavailable Rey Tay MD Unavailable Rocky Zepeda DO Unavailable Philip Dumont MD Unavailable Meredith Carrera PA-C Unavailable Neil Kent MD Unavailable Juan Pablo Emmanuel MD Unavailable Audrey Waite PA-C Unavailable [phone] Valery Veronica PA-C Unavailable Herminia Hatch MD Unavailable Jelena David OD Unavailable Juan Pablo Emmanuel MD Unavailable Maru Man PA-C Unavailable [phone] Encounter Details Date Type Department Care Team (Late st Contact Info) Description 02/06/[address] [phone] Medina Diopview Social History Tobacco [...] Answer Date Recorded PHQ-2 Score 3 09/29/2020 [facility] of Occupat ional Health - Occupational Stress [...] in a half-way (including now)? No 08/11/2020 [place] Depression Scale Answer Date Recorded [place] Depression Score 5 01/14/2021 Last EPDS Self Harm Result Not on file 01/14 Education Answer Date Recorded What is the highest level of school you have completed or the highest degree you have received? 12th grade 08/07/2020 Comments No Sex and Gender Information Value Date Recorded Sex Assigned at Female 03/02/2021 5:45 PM CDT Legal Sex Female 4:13 AM SUPERVISOR SHIPPING Gender Identity Female 03/02/2021 5:45 PM CDT [...] Description 10/22/2024 11:00 AM CDT Office Visit [facility] [address] [phone] Maru Man PA-C [address] [address] 10/23/2024 PRE VISIT [facility] Neurology [facility] - [address], [address] [place] [phone] Johnny Penn MD [address] [place], [place] [address] Previsit 10/23/2024 9:30 AM CDT Office Visit [facility] Neurology [facility] - [address], [address] [place] [phone] [place] [address] [place] [address] Johnny Penn MD [address] [place] [place] [address] 10/24/2024 4:00 PM CDT [facility] [address] [facility] [address] [place] [phone] Jelena David, [address] [facility] [place] [address] 10/31/2024 9:15 AM CDT Virtual Visit [facility] Gastroenterology Clinic [address] 4th [place] [phone] Meredith Carrera PA-C [address] [place] [address] 12/20/2024 2:30 PM CDT Office Visit [facility] [address] [place] [address] Esha Grimm PA-C [address] [place] [address] documented as of this encounter Visit Diagnoses Not on filedocumented in this encounter Additional Health Concerns Infection Onset Date Last Indicated Resolved Time Rule Out COVID-19 05/11/2021 05/11/2021 05/13/2021 10:18 AM CDT Rule Out COVID-19 07/13/2021 07/13/2021 07/14/2021 3:04 PM SUPERVISOR SHIPPING Rule Out COVID-19 07/18/2021 07/18/2021 07/20/2021 1:56 PM SUPERVISOR SHIPPING COVID-19 07/18/2021 07/18/2021 08/08/2021 11:3 9 PM SUPERVISOR SHIPPING Rule Out COVID-19 12/18/2021 12/18/2021 12/19/2021 11:34 AM CDT Rule Out COVID-19 02/24/2022 02/24/2022 02/25/2022 1:08 PM CDT Rule Out COVID-19 04/26/2022 04/26/2022 04/26/2022 6:47 AM CDT Rule Out COVID-19 05/17/2022 05/17/2022 05/17/2022 10:20 PM SUPERVISOR SHIPPING Rule Out COVID-19 06/09/2022 06/09/2022 06/09/2022 9:35 AM SUPERVISOR SHIPPING COVID-19 06/09/2022 06/09/2022 06/30/2022 11:4 1 PM SUPERVISOR SHIPPING Rule Out COVID-19 11/10/2022 11/10/2022 11/11/2022 12:17 [...] documented as of this encounter Care Teams Cigar Packer Relationship Specialty Start Date End Date Marija Edgar APRN DISTRICT MEDICAL EXAMINER PCP - General Nurse Practitioner 04/30/20 04/14/23 Esha Grimm PA-C [address] [place] [phone] PCP - General Family Medicine 05/04/23 Lita Oseguera Personal Advocate & Liaison (PAL) 02/28/20 03/27/23 Chanelle Mccann APRN CNM [address] [place] [address] 200 [place], [place] 3[address]47 Assigned OBGYN Provider 05/02/2005/09 Kyara De La Fuente, RN Specialty Bullet Maker Neurology 06/04/20 03/05/21 Marija Edgar APRN DISTRICT MEDICAL EXAMINER Assigned PCP 06/08/20 04/29/23 Mynor Broussard MD [address] [facility] 500 [place], [place] [address] Assigned Surgical Provider 06/01/20 11/28/21 Keisha Dotson MD 909 [place], [place] 964481 [phone] Assigned Neuroscience Provider 06/04/20 04/01/23 Galo Burrell MD Assigned Heart and Vascular Provider 10/05/20 04/02/22 Cristina Wood Financial Resource Worker 02/09/21 02/09/21 Diana Desir, [facility] [address] [place] [address] Pharmacist Pharmacist 04/17/21 Rain Galaviz PA-C [address] [place] [address] [address] [place], [place] [phone] Physician Bridge Painter Dermatology 04/28/21 Summer Lara MD [address] [place] [address] 943404 Assigned OBGYN Provider 05/10/2105/23 Summer Lara MD [address] [place] [address] [phone] Assigned OBGYN Provider 05/31/21 2 Summer Lara MD [address] [place] [address] 163894 Assigned OBGYN Provider 05/24/2105/30 Tavia Wyatt MD [address] [place] [address] 413964 Dermatology 07/14/21 Johnny Murillo MD [address] [place] [address] Assigned Musculoskeletal Provider 08/30/21 03/17/22 Erica Farrell APRN DISTRICT MEDICAL EXAMINER [address] [facility] [address] [place] [address] Nurse Practitioner Cardiovascular Disease 09/09/21 Teresita Bean [facility] [address] [facility] [place] [address] Pharmacist Pharmacist 09/24/21 09/29/21 Tavia Wyatt MD [address] [place] [address] Assigned Surgical Provider 11/29/21 05/07/22 [facility] [address] [place] [address] Assigned MTM Pharmacist 01/02/22 Rich Barrett MD [facility]3 [place] [address] Physician Ophthalmology 01/21/22 Neil Kent MD 500 [place] [address] Dermatology 02/24/22 Roney Story DPM [address] [facility] [address] [place], [place] [address] Assigned Musculoskeletal Provider 03/20/22 08/13/22 Erica Farrell APRN DISTRICT MEDICAL EXAMINER 1700 [place] [address] Assigned Heart and Vascular Provider 04/03/22 04/16/22 Diana Desir, [facility] [address] [place] [address] Assigned MTM Pharmacist 04/07/22 Jelena David OD [address] [facility] [place] [address] Assigned Surgical Provider 05/08/22 10/08/22 Galo Burrell MD Assigned Heart and Vascular Provider 04/17/22 06/11/22 Livan Sharif MD [address] [place] 354025 Cardiovascular Disease 05/14/22 Livan Sharif MD [address] [place] [address] Assigned Heart and Vascular Provider 06/12/22 07/23/22 Catherine Cm MD [address] [place] 428935 Cardiovascular Disease 07/21/22 Valery Veronica PA-C 909 [place], [place] 930975 Physician Bridge Painter Dermatology 07/21/22 Catherine Cm MD [address] [place] [address] Assigned Heart and Vascular Provider 07/24/22 11/05/22 Johnny Murillo MD [address] [place] [address] Assigned Musculoskeletal Provider 08/14/22 10/08/22 Brea Quinn APRN DISTRICT MEDICAL EXAMINER [address] [place], [place] 153035 Nurse Practitioner Dermatology 09/21/22 Brea Quinn APRN DISTRICT MEDICAL EXAMINER [address] [facility] [place] 147642 Assigned Surgical Provider 10/09/22 05/01/24 [place] [address] [facility] [address] [place] [address] Assigned Musculoskeletal Provider 10/09/22 05/01/24 Liavn Sharif MD [address] [facility] [address] [place] 564155 Assigned Heart and Vascular Provider 11/06/22 11/12/22 Catherine Cm MD [address] [facility] [address] [place] [address] Assigned Heart and Vascular Provider 11/13/22 05/27/23 Sydnie Martinez, VJ Personal Advocate & Liaison (PAL) Family Medicine 03/28/23 07/31/23 Alfonso Renteria MD [address] [facility] [address] [place] [address] Assigned Neuroscience Provider 04/02/23 09/29/24 Cheng Todd PA-C [address] [place] [address] [id number] Assigned PCP 04/30/23 07/15/23 Radha Lomeli APRN DISTRICT MEDICAL EXAMINER 6[address] [facility] [address] [place] [address] Assigned Heart and Vascular Provider 05/28/23 Jelena David OD [address] [facility] [place] [address] MD Ophthalmology 06/15/23 Pao Joseph, VJ Personal Advocate & Liaison (PAL) Nurse 08/01/23 11/07/23 Esha Grimm PA-C [address] [place] [phone] Assigned PCP 07/16/23 Valery Veronica PA-C [address] [place] [address] 990245 Physician Bridge Painter Dermatology 09/19/23 Rey Tay MD [address] [place] [address] 617135 Gastroenterology 09/20/23 Rocky Zepeda DO [address] [place] [address] 814835 Physician Gastroenterology 09/20/23 Philip Dumont MD [address] [place] [address] Physician Ophthalmology 09/22/23 Meredith Carrera PA-C [address] [place] [address] Assigned Gastroenterology Provider 11/01/23 Neil Kent MD [address] [place] [address] Dermatology 11/02/23 [place] [address] [place] [address] Neurological Surgery 12/26/23 Audrey Waite PA-C [address] [place] [address] Physician Bridge Painter Dermatology 02/28/24 Valery Veronica PA-C [id number] [address] [place] [address] Physician Bridge Painter Dermatology 04/10/24 Herminia Hatch MD [facility]5 [place], [place] 29786[address] Assigned Rheumatology Provider 07/02/24 Jelena David OD [address] [place] [address] [place] [address] Ophthalmology 08/30/24 [place] [address] [place] [address] Assigned Neuroscience Provider 09/30/24 Maru Man PA-C [address] [place] [address] Physician Bridge Painter Dermatology 10/03/24 documented as of this encounter
--- OUTSIDE RECORDS SUMMARY | 2024-10-18 19:27 | XMS_ITS | Encounter Summary ---
Author Organization [place] Address [address] [place] [address] Care Team Providers Care Environmental Services Lead Name Role Phone Lita Oseguera Unavailable Unavailable Marija Edgar ACCOUNT SERVICE ASSOCIATE VARNISH MELTER HELPER Primary Care Provider + Chanelle Mccann ACCOUNT SERVICE ASSOCIATE CNM Unavailab le Marija Edgar APRN VARNISH MELTER HELPER Unavailable [phone] Mynor Broussard MD Unavailable [phone] Keisha Dotson MD Unavailable Galo Burrell MD Unavailable Unavailable Diana Desir [facility] Unavailable Rain Galaviz PA-C Unavailable Summer Laar MD Unavailable [phone] Summer Lraa MD Unavailable [phone] Summer Lara MD Unavailable [phone] Tavia Wyatt MD Unavailable Johnny Murillo MD Unavailable Erica Farrell ACCOUNT SERVICE ASSOCIATE VARNISH MELTER HELPER Unavailable Teresita Bean [facility] Unavailable Tavia Wyatt MD Unavailable DesirDiana [facility] Unavailable Rich Barrett MD Unavailable Neil Kent MD Unavailable Roney StoryM Unavailable [phone] Erica Farrell APRN VARNISH MELTER HELPER Unavailable Diana Desir [facility] Unavailable [phone] Jelena David OD Unavailable Galo Burrell MD Unavailable Unavailable Livan Sharif MD Unavailable Livan Sharif MD Unavailable Catherine Cm MD Unavailable + Valery VeronicaC Unavailable [phone] Catherine Cm MD Unavailable + Johnny Murillo MD Unavailable [phone] Brea Quinn ACCOUNT SERVICE ASSOCIATE VARNISH MELTER HELPER Unavailable [phone] Brea Quinn ACCOUNT SERVICE ASSOCIATE VARNISH MELTER HELPER Unavailable [phone] Jose Francisco Johnson MD Unavailable Livan Sharif MD Unavailable Catherine Cm MD Unavailable + Sydnie Martinez RN Unavailable Unavailable Alfonso Renteria MD Unavailable Esha GrimmC Primary Care Provider Cheng Todd-C Unavailable [phone] Radha Lomeli APRN VARNISH MELTER HELPER Unavailable [phone] Jelena David OD Unavailable [phone] Pao Joseph RN Unavailable Unavailable Alfa, Esha M PA-C Unavailable [phone] Valery Veronica PA-C Unavailable Rey Tay MD Unavailable Rocky Zepeda DO Unavailable Philip Dumont MD Unavailable Meredith Carrera PA-C Unavailable Neil Kent MD Unavailable Juan Pablo Emmanuel MD Unavailable [phone] Audrey Waite PA-C Unavailable Valery Veronica PA-C Unavailable Herminia Hatch MD Unavailable Jelena David OD Unavailable Juan Pablo Emmanuel MD Unavailable [phone] Maru Man PA-C Unavailable [phone] Encounter Details Date Type Department Care Team (Late st Contact Info) Description 04/17/2021 [facility] [address] [address] Marija Edgar APRN VARNISH MELTER HELPER [address] [facility] [address] Social History Tobacco Use Types [...] Answer Date Recorded PHQ-2 Score 0 04/02/2021 [facility] [place] [facility] Occupat ional Health - Occupational Stress [...] in a custodial (including now)? No 08/11/2020 [place] Depression Scale Answer Date Recorded [place] Depression Score 5 01/14/2021 Last EPDS Self Harm Result Not on file 01/14 Education Answer Date Recorded What is the highest level of school you have completed or the highest degree you have received? 12th grade 08/07/2020 Comments No Sex and Gender Information Value Date Recorded Sex Assigned at Female 03/02/2021 5:45 PM CDT Legal Sex Female 4:13 AM ON AIR TALENT Gender Identity Female 03/02/2021 5:45 PM CDT [...] Description 10/22/2024 11:00 AM CDT Office Visit [facility] [address] [phone] Maru Man PA-C [address] [address] 10/23/2024 PRE VISIT [facility] - [address], [address] [place] [phone] Johnny Penn MD [address] [place] 217705 Previsit 10/23/2024 9:30 AM CDT Office Visit [facility] - [address], [address] [place] [phone] [place] [address] [place], [place] 9[address] Johnny Penn MD [address] [place] [id number] 10/24/2024 4:00 PM CDT Office Visit [facility] [place] [address] [place] [phone] Jelena David, 3305 [facility] [place] [address] 10/31/2024 9:15 AM CDT Virtual Visit [facility] [address] 4th [place] [phone] Meredith Carrera PA-C [address] [place] [address] 266355 12/20/2024 2:30 PM CDT Office Visit [facility] [address] [place] [address] Esha Grimm PA-C [address] [place] [address] documented as of this encounter Visit Diagnoses Not on filedocumented in this encounter Additional Health Concerns Infection Onset Date Last Indicated Resolved Time Rule Out COVID-19 05/11/2021 05/11/2021 05/13/2021 10:18 AM CDT Rule Out COVID-19 07/13/2021 07/13/2021 07/14/2021 3:04 PM ON AIR TALENT Rule Out COVID-19 07/18/2021 07/18/2021 07/20/2021 1:56 PM ON AIR TALENT COVID-19 07/18/2021 07/18/2021 08/08/2021 11:3 9 PM ON AIR TALENT Rule Out COVID-19 12/18/2021 12/18/2021 12/19/2021 11:34 AM CDT Rule Out COVID-19 02/24/2022 02/24/2022 02/25/2022 1:08 PM CDT Rule Out COVID-19 04/26/2022 04/26/2022 04/26/2022 6:47 AM CDT Rule Out COVID-19 05/17/2022 05/17/2022 05/17/2022 10:20 PM ON AIR TALENT Rule Out COVID-19 06/09/2022 06/09/2022 06/09/2022 9:35 AM ON AIR TALENT COVID-19 06/09/2022 06/09/2022 06/30/2022 11:4 1 PM ON AIR TALENT Rule Out COVID-19 11/10/2022 11/10/2022 11/11/2022 12:17 [...] as of this encounter Care Teams Environmental Services Lead Relationship Specialty Start Date End Date Marija Edgar APRN VARNISH MELTER HELPER PCP - General Nurse Practitioner 04/30/20 04/14/23 Esha Grimm PA-C [address] [place] [phone] PCP - General Family Medicine 05/04/23 Lita Oseguera Personal Advocate & Liaison (PAL) 02/28/20 03/27/23 Chanelle Mccann APRN CNM [address] [place] [address] 200 [place] [address] Assigned OBGYN Provider 05/02/2005/09 Marija Edgar APRN VARNISH MELTER HELPER Assigned PCP 06/08/20 04/29/23 Mynor Broussard MD 6363 [facility] 500 [place], [place] 232495 Assigned Surgical Provider 06/01/20 11/28/21 Keisha Dotson MD 909 [place], [place] 863745 Assigned Neuroscience Provider 06/04/20 04/01/23 Galo Burrell MD Assigned Heart and Vascular Provider 10/05/20 04/02/22 [facility] 3033 [place] [address] Pharmacist Pharmacist 04/17/21 Rain Galaviz PA-C [address] [place] [address] [place] [address] Physician Air And Missile Defense Crewmember Dermatology 04/28/21 Summer Lara MD [address] [place] [address] Assigned OBGYN Provider 05/10/2105/23 Summer Lara MD [address] [place] [address] Assigned OBGYN Provider 05/31/21 2 Summer Lara MD [address] [place] [address] 905494 Assigned OBGYN Provider 05/24/2105/30 Tavia Wyatt MD [address] [place] [address] 312794 Dermatology 07/14/21 Johnny Murillo MD [facility] [facility] [address] [place] [address] Assigned Musculoskeletal Provider 08/30/21 03/17/22 Erica Farrell APRN VARNISH MELTER HELPER 6405 [facility] [address] [place] [address] Nurse Practitioner Cardiovascular Disease 09/09/21 Teresita Bean [facility] [address] [place] [address] Pharmacist Pharmacist 09/24/21 09/29/21 Tavia Wyatt MD [address] [place] [address] Assigned Surgical Provider 11/29/21 05/07/22 Diana Desir, [facility] [place] [address] Assigned MTM Pharmacist 01/02/[address] [facility] [place] [address] Physician Ophthalmology 01/21/22 Neil Kent MD 500 [place] [address] Dermatology 02/24/22 [place] [address] [facility] [address] [place] [address] Assigned Musculoskeletal Provider 03/20/22 08/13/22 Erica Farrell APRN VARNISH MELTER HELPER 1700 [place] [address] Assigned Heart and Vascular Provider 04/03/22 04/16/22 Diana Desir [facility] [place] [address] Assigned MTM Pharmacist 04/07/22 Jelena David OD [address] [place] [address] Assigned Surgical Provider 05/08/22 10/08/22 Galo Burrell MD Assigned Heart and Vascular Provider 04/17/22 06/11/22 Livan Sharif MD [address] [place] 181095 Cardiovascular Disease 05/14/22 Livan Sharif MD [address] [place] 228765 Assigned Heart and Vascular Provider 06/12/22 07/23/22 Catherine Cm MD [address] [place] 621355 Cardiovascular Disease 07/21/22 Valery Veronica, PAUcheC 909 [place], [place] 605835 Physician Air And Missile Defense Crewmember Dermatology 07/21/22 Catherine Cm MD [address] [place] 783835 Assigned Heart and Vascular Provider 07/24/22 11/05/22 Johnny Murillo MD [address] [facility] [address] [place], [place] 760154 Assigned Musculoskeletal Provider 2/4/23 3/31/23 Brea Quinn APRN VARNISH MELTER HELPER 500 [place] [address] Nurse Practitioner Dermatology 09/21/22 Brea Quinn APRN VARNISH MELTER HELPER 6401 [facility] [place] 198942 Assigned Surgical Provider 10/09/22 05/01/24 [place] [address] [facility] 300 [place], [place] 688487 Assigned Musculoskeletal Provider 10/09/22 05/01/24 Livan Sharif MD 6405 [facility] [address] [place] [address] Assigned Heart and Vascular Provider 11/06/22 11/12/22 Catherine Cm MD 6405 [facility] [address] [place] [address] Assigned Heart and Vascular Provider 11/13/22 05/27/23 Sydnie Martinez RN Personal Advocate & Liaison (PAL) Family Medicine 03/28/23 07/31/23 Alfonso Renteria MD 5775 [facility] 200 [place], [place] 284576 Assigned Neuroscience Provider 04/02/23 09/29/24 Cheng Todd PA-C [address] [place] [address] Assigned PCP 04/30/23 07/15/23 Radha Lomeli APRN VARNISH MELTER HELPER 6[address] [facility] [address] [address] [place] [address] Assigned Heart and Vascular Provider 05/28/23 Jelena David OD [address] [place] [address] MD Ophthalmology 06/15/23 Pao Joseph, VJ Personal Advocate & Liaison (PAL) Nurse 08/01/23 11/07/23 Esha Grimm PA-C [address] [place] [phone] Assigned PCP 07/16/23 Valery Veronica PA-C [address] [place] [address] 195115 Physician Air And Missile Defense Crewmember Dermatology 09/19/23 Rey Tay MD [address] [place] [address] 814365 Gastroenterology 09/20/23 Rocky Zepeda DO [address] [place] [address] 235885 Physician Gastroenterology 09/20/23 Philip Dumont MD [address] [place] [address] 441145 Physician Ophthalmology 09/22/23 Meredith Carrera PA-C [address] [place] [address] 588715 Assigned Gastroenterology Provider 11/01/23 Neil Kent MD [address] [place] [address] Dermatology 11/02/23 [place] [address] [address] [place] [address] Neurological Surgery 12/26/23 Audrey Waite PA-C 500 [place] [address] Physician Air And Missile Defense Crewmember Dermatology 02/28/24 Valery Veronica PA-C 893573 [place], [place] [address] Physician Air And Missile Defense Crewmember Dermatology 04/10/24 Herminia Hatch MD [address] [place] [address] Assigned Rheumatology Provider 07/02/24 Jelena Dvaid OD [address] [place] [address] [place] [address] Ophthalmology 08/30/24 [place] [address] [place] [address] Assigned Neuroscience Provider 09/30/24 Maru Man PA-C [address] [place] [address] Physician Air And Missile Defense Crewmember Dermatology 10/03/24 documented as of this encounter
--- OUTSIDE RECORDS SUMMARY | 2024-10-18 19:27 | XMS_ITS | Encounter Summary ---
Author Organization [place] Address [address] [place] [address] Care Team Providers Care Line Lead Name Role Phone Lita Oseguera Unavailable Unavailable Marija Edgar AIRCRAFT ARMAMENT MECHANIC TREE GIRDLER Primary Care Provider + Chanelle Mccann AIRCRAFT ARMAMENT MECHANIC CNM Unavailab le Marija Edgar APRN TREE GIRDLER Unavailable Mynor Broussard MD Unavailable [phone] Keisha Dotson MD Unavailable Galo Burrell MD Unavailable Unavailable Diana Desir [facility] Unavailable Rain Galaviz PA-C Unavailable [phone] Summer Lara MD Unavailable Summer Lara MD Unavailable [phone] Summer Lara MD Unavailable [phone] Tavia Wyatt MD Unavailable Johnny Murillo MD Unavailable Erica Farrell AIRCRAFT ARMAMENT MECHANIC TREE GIRDLER Unavailable Teresita Bean [facility] Unavailable Tavia Wyatt MD Unavailable DesirDiana [facility] Unavailable Rich Barrett MD Unavailable Neil Kent MD Unavailable Roney StoryM Unavailable [phone] Erica Farrell APRN TREE GIRDLER Unavailable Diana Desir [facility] Unavailable [phone] Jelena David OD Unavailable Galo Burrell MD Unavailable Unavailable Livan Sharif MD Unavailable Livan Sharif MD Unavailable Catherine Cm MD Unavailable + Valery VeronicaC Unavailable [phone] Catherine Cm MD Unavailable + Johnny Murillo MD Unavailable [phone] Brea Quinn AIRCRAFT ARMAMENT MECHANIC TREE GIRDLER Unavailable [phone] Brea Quinn AIRCRAFT ARMAMENT MECHANIC TREE GIRDLER Unavailable [phone] Jose Francisco Johnson MD Unavailable Livan Sharif MD Unavailable Catherine Cm MD Unavailable + Sydnie Martinez RN Unavailable Unavailable Alfonso Renteria MD Unavailable Esha GrimmC Primary Care Provider Cheng Todd-C Unavailable [phone] Radha Lomeli APRN TREE GIRDLER Unavailable [phone] Jelena David OD Unavailable Pao Joseph RN Unavailable Unavailable Alfa, Esha M PA-C Unavailable [phone] Valery Veronica PA-C Unavailable Rey Tay MD Unavailable Duane Rocky Unavailable Philip Dumont MD Unavailable [phone] Meredith Carrera PA-C Unavailable [phone] Neil Kent MD Unavailable Juan Pablo Emmanuel MD Unavailable Audrey Waite PA-C Unavailable [phone] Valery Veronica PA-C Unavailable Herminia Hatch MD Unavailable Jelena David OD Unavailable Juan Pablo Emmanuel MD Unavailable [phone] Maru Man PA-C Unavailable [phone] Encounter Details Date Type Department Care Team (Late st Contact Info) Description 05/05/2021 [facility] [address] [address] Lauren Gan, RN Social History [...] in a detention (including now)? No 08/11/2020 [place] Depression Scale Answer Date Recorded Edwards Depression Score 5 01/14/2021 Last EPDS Self Harm Result Not on file 01/14 Education Answer Date Recorded What is the highest level of school you have completed or the highest degree you have received? 12th grade 08/07/2020 Comments No Sex and Gender Information Value Date Recorded Sex Assigned at Female 03/02/2021 5:45 PM CDT Legal Sex Female 4:13 AM MOLD BUNCH TRIMMER Gender Identity Female 03/02/2021 5:45 PM [...] 10/22/2024 11:00 AM CDT Office Visit [address] [address] Maru Man PA-C [address] [place] [address] 10/23/2024 PRE VISIT [facility] - [address], [address] [place] [phone] Johnny Penn MD [address] [place], [place] 8748[address] Previsit 10/23/2024 9:30 AM CDT Office Visit [facility] - [address] [place] [phone] [place] [address] [place], [place] 8[address] Johnny Penn MD [address] [place] 117[address] 10/24/2024 4:00 PM CDT Office Visit [facility] 3305 [facility] [address] [place] [phone] Jelena David, 3305 [facility] [place] [address] 10/31/2024 9:15 AM CDT Virtual Visit [facility] [address] 4th [place] [phone] Meredith Carrera PA-C [address] [place] [address] 964055 12/20/2024 2:30 PM CDT Office Visit [address] [phone] Esha Grimm PA-C [address] [place] [address] documented as of this encounter Visit Diagnoses Not on filedocumented in this encounter Additional Health Concerns Infection Onset Date Last Indicated Resolved Time Rule Out COVID-19 05/11/2021 05/11/2021 05/13/2021 10:18 AM CDT Rule Out COVID-19 07/13/2021 07/13/2021 07/14/2021 3:04 PM MOLD BUNCH TRIMMER Rule Out COVID-19 07/18/2021 07/18/2021 07/20/2021 1:56 PM MOLD BUNCH TRIMMER COVID-19 07/18/2021 07/18/2021 08/08/2021 11:3 9 PM MOLD BUNCH TRIMMER Rule Out COVID-19 12/18/2021 12/18/2021 12/19/2021 11:34 AM CDT Rule Out COVID-19 02/24/2022 02/24/2022 02/25/2022 1:08 PM CDT Rule Out COVID-19 04/26/2022 04/26/2022 04/26/2022 6:47 AM CDT Rule Out COVID-19 05/17/2022 05/17/2022 05/17/2022 10:20 PM MOLD BUNCH TRIMMER Rule Out COVID-19 06/09/2022 06/09/2022 06/09/2022 9:35 AM MOLD BUNCH TRIMMER COVID-19 06/09/2022 06/09/2022 06/30/2022 11:4 1 PM MOLD BUNCH TRIMMER Rule Out COVID-19 11/10/2022 11/10/2022 11/11/2022 [...] as of this encounter Care Teams Line Lead Relationship Specialty Start Date End Date Marija Edgar APRN TREE GIRDLER PCP - General Nurse Practitioner 04/30/20 04/14/23 Esha Grimm PA-C [address] [place] [phone] PCP - General Family Medicine 05/04/23 Lita Oseguera Personal Advocate & Liaison (PAL) 02/28/20 03/27/23 [place] [address] [place] [address] 200 [place] [address] Assigned OBGYN Provider 05/02/2005/09 Marija Edgar APRN TREE GIRDLER Assigned PCP 06/08/20 04/29/23 Mynor Broussard MD 6363 [facility] 500 [place] [address] Assigned Surgical Provider 06/01/20 11/28/21 Keisha Dotson MD 909 [place], [place] 970645 Assigned Neuroscience Provider 06/04/20 04/01/23 Galo Burrell MD Assigned Heart and Vascular Provider 10/05/20 04/02/22 Diana Desir, [facility] [address] [place] [address] Pharmacist Pharmacist 04/17/21 Rain Galaviz PA-C [address] [place] [address] [place] [address] Physician Equine Breeder Dermatology 04/28/21 Summer Lara MD [address] [facility] [address] [place], [place] [address] Assigned OBGYN Provider 05/10/2105/23 Summre Lara MD [address] [place], [place] 3518[address] Assigned OBGYN Provider 05/31/21 Summer Lara MD [address] [place] [address] [place], [place] [address] Assigned OBGYN Provider 05/24/2105/30 Tavia Wyatt MD [address] [place], [place] 5637[address] Dermatology 07/14/21 Johnny Murillo MD [address] [place] [address] Assigned Musculoskeletal Provider 08/30/21 03/17/22 Erica Farrell APRN TREE GIRDLER 6405 [facility] [address] [place] [address] Nurse Practitioner Cardiovascular Disease 09/09/21 Teresita Bean [facility] [address] [place] [address] Pharmacist Pharmacist 09/24/21 09/29/21 Tavia Wyatt MD [address] [place] [address] Assigned Surgical Provider 11/29/21 05/07/22 Diana Desir, [facility] [place] [address] Assigned MTM Pharmacist 01/02/22 Rich Barrett MD [facility] [place] [address] Physician Ophthalmology 01/21/22 Neil Kent MD 500 [place] [address] Dermatology 02/24/22 [place] [address] [facility] [address] [place] [address] Assigned Musculoskeletal Provider 03/20/22 08/13/22 Erica Farrell APRN TREE GIRDLER 1700 [place] [address] Assigned Heart and Vascular Provider 04/03/22 04/16/22 Diana Desir, [facility] [place] [address] Assigned MTM Pharmacist 04/07/22 Jelena David OD [address] [facility] [address] Assigned Surgical Provider 05/08/22 10/08/22 Galo Burrell MD Assigned Heart and Vascular Provider 04/17/22 06/11/22 Livan Sharif MD [address] [place], [place] 428[address] Cardiovascular Disease 05/14/22 Livan Sharif MD [address] [place] [address] Assigned Heart and Vascular Provider 06/12/22 07/23/22 Catherine Cm MD [address] [place] [address] Cardiovascular Disease 07/21/22 Valery Veronica, PA-C [address] [place] [address] Physician Equine Breeder Dermatology 07/21/22 Catherine Cm MD [address] [place] [address] Assigned Heart and Vascular Provider 07/24/22 11/05/22 Johnny Murillo MD [facility] [address] [address] Assigned Musculoskeletal Provider 08/14/22 10/08/22 Brea Quinn APRN TREE GIRDLER [address] [place] [address] Nurse Practitioner Dermatology 09/21/22 Brea Quinn APRN TREE GIRDLER 6401 [facility] [place] [address] Assigned Surgical Provider 10/09/22 05/01/24 [place] [address] [facility] 300 [place] [address] Assigned Musculoskeletal Provider 10/09/22 05/01/24 Livan Sharif MD 6405 [facility] [address] [place] [address] Assigned Heart and Vascular Provider 11/06/22 11/12/22 Catherine Cm MD [address] [place] 7503100 [place] [address] Assigned Heart and Vascular Provider 11/13/22 05/27/23 Sydnie Martinez RN Personal Advocate & Liaison (PAL) Family Medicine 03/28/23 07/31/23 Alfonso Renteria MD 5775 [facility] 200 [place] [address] Assigned Neuroscience Provider 04/02/23 09/29/24 Cheng Todd PA-C [address] [place] [address] Assigned PCP 04/30/23 07/15/23 Radha Lomeli APRN TREE GIRDLER [address] [facility] [address] [place] [address] Assigned Heart and Vascular Provider 05/28/23 Jelena David OD [address] [facility] [address] MD Ophthalmology 06/15/23 Pao Joseph, RN Personal Advocate & Liaison (PAL) Nurse 08/01/23 11/07/23 Esha Grimm PA-C [address] [place] [phone] Assigned PCP 07/16/23 Valery Veronica PA-C [address] [place] [address] 235445 Physician Equine Breeder Dermatology 09/19/23 Rey Tay MD [address] [place] [address] 125445 Gastroenterology 09/20/23 Rocky Zepeda DO [address] [place] [address] 311345 Physician Gastroenterology 09/20/23 Philip Dumont MD [address] [place] [address] 950545 Physician Ophthalmology 09/22/23 Meredith Carrera PA-C [address] [place] [address] 078495 Assigned Gastroenterology Provider 11/01/23 Neil Kent MD [address] 147940 Dermatology 11/02/23 [place] [address] [place] [address] Neurological Surgery 12/26/23 Audrey Waite PA-C 500 [place] [address] Physician Equine Breeder Dermatology 02/28/24 Valery Veronica PA-C 081668 [address], [place] [address] Physician Equine Breeder Dermatology 04/10/24 Herminia Hatch MD [address] [place] [address] [id number] Assigned Rheumatology Provider 07/02/24 [place] [address] [place] [address] [place] [address] Ophthalmology 08/30/24 [place] [address] [place] [address] Assigned Neuroscience Provider 09/30/24 Maru Man PA-C [address] [place] [address] Physician Equine Breeder Dermatology 10/03/24 documented as of this encounter
--- OUTSIDE RECORDS SUMMARY | 2024-10-18 19:27 | XMS_ITS | Encounter Summary ---
Author Organization [facility] Address [address] [place] [address] Care Team Providers Care Padder Cushion Name Role Phone Lita Oseguera Unavailable Unavailable Marija Edgar APRN LOSS PREVENTION/SAFETY DISTRICT MANAGER Primary Care Provider + Marija Edgar APRN LOSS PREVENTION/SAFETY DISTRICT MANAGER Unavailable [phone] Keisha Dotson MD Unavailable Diana Desir [facility] Unavailable Rain Galaviz PA-C Unavailable Tavia Wyatt MD Unavailable Erica Farrell APRN LOSS PREVENTION/SAFETY DISTRICT MANAGER Unavailable Rich Barrett MD Unavailable [phone] Neil Kent MD Unavailable Roney Story DPM Unavailable Diana Desir [facility] Unavailable [phone] Jelena David OD Unavailable Livan Sharif MD Unavailable Livan Sharif MD Unavailable Catherine Cm MD Unavailable + Valery Veronica PA-C Unavailable Catherine Cm MD Unavailable + Johnny Murillo MD Unavailable [phone] Brea Quinn QUALITY ASSURANCE INTERN LOSS PREVENTION/SAFETY DISTRICT MANAGER Unavailable [phone] Brea Quinn QUALITY ASSURANCE INTERN LOSS PREVENTION/SAFETY DISTRICT MANAGER Unavailable [phone] Jose Francisco Johnson MD Unavailable Livan Sharif MD Unavailable Catherine Cm MD Unavailable + Sydnie Martinez RN Unavailable Unavailable Alfonso Renteria MD Unavailable [phone] Esha Grimm PA-C Primary Care Provider Cheng Todd PA-C Unavailable [phone] Radha Lomeli QUALITY ASSURANCE INTERN LOSS PREVENTION/SAFETY DISTRICT MANAGER Unavailable Jelena David OD Unavailable Pao Joseph RN Unavailable Unavailable Esha Grimm PA-C Unavailable [phone] Valery Veronica PA-C Unavailable Rey Tay MD Unavailable Rocky Zepeda DO Unavailable Philip Dumont MD Unavailable Meredith Carrera PA-C Unavailable [phone] Neil Kent MD Unavailable Juan Pablo Emmanuel MD Unavailable Audrey Waite PA-C Unavailable Valery Veronica PA-C Unavailable Herminia Hatch MD Unavailable Jelena David OD Unavailable [phone] Juan Pablo Emmanuel MD Unavailable Maru Man PA-C Unavailable Encounter Details Date Type Department Care Team (Late st Contact Info) Description 07/20/2022 MyC Medical Advice [address] [address] Pao Donahue RN Social History [...] How often do you attend orthodox or synagogue serv ices? Never 09/22/2021 Do [...] points; Administer PHQ-9 if positive 1 05/13/2022 [facility] [place] of Occupat ional Health - Occupational [...] in a retirement (including now)? No 09/22/2021 Mcbrides Depression Scale Answer Date Recorded Mcbrides Depression Score 5 01/14/2021 Last EPDS Self Harm Result Not on file 01/14 Education Answer Date Recorded What is the highest level of school you have completed or the highest degree you have received? 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 No / Unsure 07/23/2022 6:45 AM OVEN OPERATOR AUTOMATIC documented as of this encounter Plan of Treatment Upcoming Encounters Date Type Department Care Team (Late st Contact Info) Description 10/22/2024 11:00 AM CDT Office Visit [address] [phone] Maru Man PA-C [address] [place] [address] 10/23/2024 PRE VISIT [facility] Neurology [address] [address] Johnny Penn MD [address] [facility] [place], [place] [address] Previsit 10/23/2024 9:30 AM CDT Office Visit [facility] Neurology [address], [address] [place] [address] [place] [address] [place] [address] Johnny Penn MD [address] [place] [address] 10/24/2024 4:00 PM CDT Office Visit [facility] [place] [address] [place] [phone] Jelena David, OD [address] [facility] [place] [address] 10/31/2024 9:15 AM CDT Virtual Visit [facility] Gastroenterology Clinic [address] [place] [phone] Meredith Carrera PA-C [address] [place] [address] 12/20/2024 2:30 PM CDT Office Visit [facility] [id number] [place] [address] Esha Grimm PA-C [address] [place] [phone] documented as of this encounter Visit Diagnoses Not on filedocumented in this encounter Additional Health Concerns Infection Onset Date Last Indicated Resolved Time Rule Out COVID-19 11/10/2022 11/10/2022 11/11/2022 12:17 PM CDT Rule Out COVID-19 03/07/2023 03/07/2023 03/07/2023 1:20 PM CDT Rule Out COVID-19 12/26/2023 12/26/2023 12/26/2023 9:50 AM CDT Rule Out COVID-19 04/09/2024 04/09/2024 04/10/2024 6:48 PM CDT Rule Out COVID10/04/2024 10/04/2024 10/05/2024 9:42 AM CDT Assessment Noted Time PHQ-9 Depression Total Score: 3 05/13/20 22 8:49 PM CDT documented as of this encounter Care Teams Padder Cushion Relationship Specialty Start Date End Date Marija Edgar APRN LOSS PREVENTION/SAFETY DISTRICT MANAGER PCP - General Nurse Practitioner 04/30/20 04/14/23 Esha Grimm PA-C [address] [place] [address] PCP - General Family Medicine 05/04/23 Lita Oseguera Personal Advocate & Liaison (PAL) 02/28/20 03/27/23 Marija Edgar APRN LOSS PREVENTION/SAFETY DISTRICT MANAGER Assigned PCP 06/08/20 04/29/23 Keisha Dotson MD 909 [place] [address] Assigned Neuroscience Provider 06/04/20 04/01/23 Diana Desir, [facility] [address] [place] [address] Pharmacist Pharmacist 04/17/21 Rain Galaviz PA-C [address] [place] [address] [address] [place] [address] Physician Chief Operating Officer Dermatology 04/28/21 Tavia Wyatt MD [address] [place] [address] [address] [place] [address] Dermatology 07/14/21 Erica Farrell APRN LOSS PREVENTION/SAFETY DISTRICT MANAGER [address] [place] [address] Nurse Practitioner Cardiovascular Disease 09/09/21 Rich Barrett MD [address] [place] [address] Physician Ophthalmology 01/21/22 Neil Kent MD [address] [place], [place] 391895 Dermatology 02/24/22 Roney Story DPAdam [address] [address] [facility] [address] [place], [place] 7[address]87 Assigned Musculoskeletal Provider 03/20/22 08/13/22 [facility] [address] [place], [place] 906766 Assigned MTM Pharmacist 04/07/22 Jelena David OD [address] [facility] [place] [address] Assigned Surgical Provider 05/08/22 10/08/22 Livan Sharif MD [address] [place] [address] Cardiovascular Disease 05/14/22 Livan Sharif MD [address] [place] [address] Assigned Heart and Vascular Provider 06/12/22 07/23/22 Catherine Cm MD [address] [place] [address] Cardiovascular Disease 07/21/22 Valery Veronica PA-C 909 [place] [address] Physician Chief Operating Officer Dermatology 07/21/22 Catherine Cm MD [address] [facility] [address] [place] 421085 Assigned Heart and Vascular Provider 07/24/22 11/05/22 Johnny Murillo MD [facility] [address] [address] Assigned Musculoskeletal Provider 08/14/22 10/08/22 Brea Quinn APRN LOSS PREVENTION/SAFETY DISTRICT MANAGER [address] [place] [address] 362755 Nurse Practitioner Dermatology 09/21/22 rBea Quinn APRN LOSS PREVENTION/SAFETY DISTRICT MANAGER [address] [place] [address] [place] [address] Assigned Surgical Provider 10/09/22 05/01/24 [place] [address] [place] [address] [place] [address] Assigned Musculoskeletal Provider 10/09/22 05/01/24 Livan Sharif MD [address] [place] [address] Assigned Heart and Vascular Provider 11/06/22 11/12/22 Catherine Cm MD [address] [place] [address] Assigned Heart and Vascular Provider 11/13/22 05/27/23 Sydnie Martinez RN Personal Advocate & Liaison (PAL) Family Medicine 03/28/23 07/31/23 Alfonso Renteria MD [address] [facility] [address] [place] [address] Assigned Neuroscience Provider 04/02/23 09/29/24 Cheng Todd PA-C [address] [place] [address] [phone] Assigned PCP 04/30/23 07/15/23 Radha Lomeli, ARLENE LOSS PREVENTION/SAFETY DISTRICT MANAGER [address] [place] [address]25 Assigned Heart and Vascular Provider 05/28/23 Jelena David OD [address] [place] [address] Ophthalmology 06/15/23 Pao Joseph, VJ Personal Advocate & Liaison (PAL) Nurse 08/01/23 11/07/23 Esha Grimm PA-C [address] [place] [phone] Assigned PCP 07/16/23 Valery Veronica PA-C [address]09 [place], [place] 848475 Physician Chief Operating Officer Dermatology 09/19/23 Rey Tay MD [address] [place] [address] 206015 MD Gastroenterology 09/20/23 Rocky Zepeda DO [address] [place] [address] 078565 Physician Gastroenterology 09/20/23 Philip Dumont MD 6 [place], [place] 7[address]45 Physician Ophthalmology 09/22/23 Meredith Carrera PA-C [address] [place] [address] 575035 Assigned Gastroenterology Provider 11/01/23 Neil Kent MD [address] [address] Dermatology 11/02/23 [place] [address] [address] [facility] [place] [address] Neurological Surgery 12/26/23 Audrey Waite PA-C [address] [place] [address] Physician Chief Operating Officer Dermatology 02/28/24 Valery Veronica PA-C 384628 [place], [place] [address] Physician Chief Operating Officer Dermatology 04/10/24 Herminia Hatch MD [address] [place] [address] Assigned Rheumatology Provider 07/02/24 Jelena David OD [address] [facility] [place] [address] Ophthalmology 08/30/24 [place] [address] [place] [address] Assigned Neuroscience Provider 09/30/24 Maru Man PA-C [address] [address] Physician Chief Operating Officer Dermatology 10/03/24 documented as of this encounter
--- OUTSIDE RECORDS SUMMARY | 2024-10-18 19:28 | XMS_ITS | Encounter Summary ---
Author Organization [facility] Address [address] [place] [address] Care Team Providers Care Php Architect Name Role Phone Diana Desir [facility] Unavailable Rain GalavizC Unavailable Tavia Wyatt MD Unavailable Erica Farrell APRN CUSTOMER ACCOUNT REPRESENTATIVE Unavailable Rich Barrett MD Unavailable [phone] Neil Kent MD Unavailable DesirKendrickDiana Stanislav [facility] Unavailable [phone] Livan Sharif MD Unavailable Catherine Cm MD Unavailable + Valery Veronica-C Unavailable Brea Quinn WARP DYEING TENDER CUSTOMER ACCOUNT REPRESENTATIVE Unavailable Alfonso Renteria MD Unavailable [phone] Esha GrimmC Primary Care Provider [phone] Radha Lomeli WARP DYEING TENDER CUSTOMER ACCOUNT REPRESENTATIVE Unavailable Jelena David OD Unavailable Alfa, Esha M PA-C Unavailable [phone] Valery Veronica PA-C Unavailable Rey Tay MD Unavailable Rocky Zepeda DO Unavailable Philip Dumont MD Unavailable Meredith Carrera-C Unavailable [phone] Neil Kent MD Unavailable Juan Pablo Emmanuel MD Unavailable [phone] Audrey Waite PA-C Unavailable [phone] Valery Veronica PA-C Unavailable Herminia Hatch MD Unavailable Jelena David OD Unavailable Reason for Visit * Reason Comments Medication Refill Encounter Details Date Type Department Care Team (Late st Contact Info) Description 09/17/2024 Refill [facility] [address] [place] [address] Anthony Doe PA-C [address] [place] [address] [phone] Medication Refill Social History Tobacco Use Types [...] 05/07/2024 How often do you attend [facility] or taoist services? 1 to 4 [...] exercise at this level? 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 Gender Identity Female 03/02/2021 5:45 PM CDT Sexual Orientation Straight 02/28/2020 12 :51 AM CDT documented as of this encounter Plan of Treatment Upcoming Encounters Date Type Department Care Team (Late st Contact Info) Description 10/22/2024 11:00 AM CDT Office Visit [address] [phone] Maru Man PA-C [address] 046430 10/23/2024 PRE VISIT [facility] Neurology [facility] - [address], [address] [place] [address] Johnny Penn MD [address] [facility] [place] 76[address] Previsit 10/23/2024 9:30 AM CDT Office Visit [facility] Neurology [facility] [place] [address] [facility], [address] [place] [phone] [place] [address] [place] [address] Johnny Penn MD [address] [facility] [place] [address] 10/24/2024 4:00 PM CDT Office Visit [facility] [address] [facility] [address] [place] [phone] Jelena David, [address] [facility] [address] 10/31/2024 9:15 AM CDT Virtual Visit [facility] Gastroenterology Clinic [address] [phone] Meredith Carrera PA-C [address] [place] [address] 12/20/2024 2:30 PM CDT Office Visit [facility] [address] [place] [phone] Esha Grimm PA-C [address] [place] [address] documented as of this encounter Visit Diagnoses Diagnosis Epigastric pain Abdominal pain, epigastric Anxiety Anxiety state, unspecified documented in this encounter Additional Health Concerns Assessment Noted Time PHQ-9 Depression Total Score: 3 02/07/20 24 9:33 AM CDT documented as of this encounter Care Teams Php Architect Relationship Specialty Start Date End Date Esha Grimm PA-C [address] [place] [address] PCP - General Family Medicine 05/04/23 Diana Desir, [facility] [address] [place] [address] Pharmacist Pharmacist 04/17/21 Rain Galaviz PA-C [address] [place] [address] [address] [place] [address] Physician Wrapper Caser Dermatology 04/28/21 Tavia Wyatt MD [address] [place] [address] [address] [facility] [place] [address] Dermatology 07/14/21 Erica Farrell APRN CUSTOMER ACCOUNT REPRESENTATIVE [address] [place], [place] 497555 Nurse Practitioner Cardiovascular Disease 09/09/21 Rich Barrett MD [address] [place], [place] 84[address] Physician Ophthalmology 01/21/22 Neil Kent MD 500 [place], [place] [address] Dermatology 02/24/22 Diana Desir, [facility] [address] [place] [address] Assigned MTM Pharmacist 04/07/22 Livan Sharif MD [address] [place] [address] Cardiovascular Disease 05/14/22 Catherine Cm MD [address] [facility] [address] [place] [address] Cardiovascular Disease 07/21/22 Valery Veronica PA-C [address] [place] [address] Physician Wrapper Caser Dermatology 07/21/22 Brea Quinn APRN CUSTOMER ACCOUNT REPRESENTATIVE [address] [place] [address] 821715 Nurse Practitioner Dermatology 09/21/22 Alfonso Renteria MD 5775 [facility] 200 [place], [place] 050736 Assigned Neuroscience Provider 04/02/23 09/29/24 Radha Lomeli APRN CUSTOMER ACCOUNT REPRESENTATIVE [address] [place] 394685 Assigned Heart and Vascular Provider 05/28/23 Jelena David OD [address] [facility] [address] Ophthalmology 06/15/23 Esha Grimm PA-C [address] [place] [address] Assigned PCP 07/16/23 Valery Veronica PA-C [address] [place] [address] Physician Wrapper Caser Dermatology 09/19/23 Rey Tay MD [address] [place] [address] MD Gastroenterology 09/20/23 Rocky Zepeda DO [address] [place] [address] Physician Gastroenterology 09/20/23 Philip Dumont MD [address] [place] [address] Physician Ophthalmology 09/22/23 Meredith Carrera PA-C [address] [place] [address] Assigned Gastroenterology Provider 11/01/23 Neil Kent MD [address] [place] [address] Dermatology 11/02/23 [place] [address] [address] [facility] [place] [address] Neurological Surgery 12/26/23 Audrey Waite PA-C [address] [place] [address] Physician Wrapper Caser Dermatology 02/28/24 Valery Veroniac PA-C 226396 [place], [place] [address] Physician Wrapper Caser Dermatology 04/10/24 Herminia Hatch MD [facility] [place] [address] Assigned Rheumatology Provider 07/02/24 Jelena David OD [address] [facility] [place] [address] Ophthalmology 08/30/24 documented as of this encounter
--- OUTSIDE RECORDS SUMMARY | 2024-10-18 19:28 | XMS_ITS | Encounter Summary ---
Author Organization [facility] Address [address] [place] [address] Care Team Providers Care Clarifying Plant Operator Name Role Phone Diana Desir [facility] Unavailable Rain Galaviz PA-C Unavailable Tavia Wyatt MD Unavailable [phone] Erica Farrell APRN MINIBUS DRIVER Unavailable Rich Barrett MD Unavailable [phone] Neil Kent MD Unavailable Diana Desir [facility] Unavailable [phone] Livan Sharif MD Unavailable Catherine Cm MD Unavailable + Valery Veronica PA-C Unavailable Brea Quinn CURRICULUM ASSISTANT PRINCIPAL MINIBUS DRIVER Unavailable Brea Quinn CURRICULUM ASSISTANT PRINCIPAL MINIBUS DRIVER Unavailable Jose Francisco Johnson MD Unavailable Alfonso Renteria MD Unavailable [phone] Esha Grimm PA-C Primary Care Provider [phone] Radha Lomeli APRN MINIBUS DRIVER Unavailable Tommy Davidmao Templetone OD Unavailable Pao Joseph RN Unavailable Unavailable Alfa[facility]olincoln [place] PA-C Unavailable [phone] Valery Veronica PA-C Unavailable [phone] Rey Tay MD Unavailable Rocky Zepeda DO Unavailable Philip Dumont MD Unavailable [phone] Meredith Carrera PA-C Unavailable [phone] Neil Kent MD Unavailable Juan Pablo Emmanuel MD Unavailable [phone] Audrey Waite PA-C Unavailable [phone] Valery Veronica PA-C Unavailable Herminia Hatch MD Unavailable Jelena David OD Unavailable Juan Pablo Emmanuel MD Unavailable [phone] Maru Man PA-C Unavailable [phone] Encounter Details Date Type Department Care Team (Late st Contact Info) Description 09/08/2023 [facility] Gastroenterology Clinic [address] [address] Marija Polanco, VJ Social History Tobacco [...] Score 0 06/20/2023 [facility] - Occupational Stress Questionnaire Answer [...] exercise at this level? 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 Gender Identity Female 03/02/2021 5:45 PM CDT Sexual Orientation Straight 02/28/2020 12 :51 AM CDT documented as of this encounter Plan of Treatment Upcoming Encounters Date Type Department Care Team (Late st Contact Info) Description 10/22/2024 11:00 AM CDT Office Visit [address] [phone] Maru Man PA-C [address] [address] 10/23/2024 PRE VISIT [facility] Neurology [facility] - [address], [address] [place] [address] Johnny Penn MD [address] [place] [address] Previsit 10/23/2024 9:30 AM CDT Office Visit [facility] Neurology [facility] [address] [facility], [address] [place] [phone] [place] [address] [place] [address] Johnny Penn MD [address] [place] [address] 10/24/2024 4:00 PM CDT Office Visit [facility] [address] [facility] [address] [place] [phone] Jelena David, [address] [facility] [place] [address] 10/31/2024 9:15 AM CDT Virtual Visit [facility] Gastroenterology Clinic [address] [phone] Meredith Carrera PA-C [address] [place] [address] 12/20/2024 2:30 PM CDT Office Visit [facility] [address] [place] [address] Esha Grimm PA-C [address] [place] [address] documented as of this encounter [...] Total Score: 4 06/20/20 23 8:40 AM COSTING MANAGER documented as of this encounter Care Teams Clarifying Plant Operator Relationship Specialty Start Date End Date Esha Grimm PA-C [address] [place] [address] PCP - General Family Medicine 05/04/23 Diana Desir, [facility] [address] [facility] [place] [address] Pharmacist Pharmacist 04/17/21 Rain Galaviz PA-C [address] [place] [address] [address] [address] Physician Supervisor Bindery Dermatology 04/28/21 Tavia Wyatt MD [address] [place] [address] [address] [place] [address] Dermatology 07/14/21 Erica Farrell APRN MINIBUS DRIVER [address] [place] [address] Nurse Practitioner Cardiovascular Disease 09/09/21 Rich Barrett MD [address] [place] [address] Physician Ophthalmology 01/21/22 Neil Kent MD 500 [place] [address] Dermatology 02/24/22 [facility] 3033 [place] [address] Assigned [place] Pharmacist 04/07/22 Livan Sharif MD [address] [place] 8412200 [place] [address] Cardiovascular Disease 05/14/22 Catherine Cm MD [address] [address] Cardiovascular Disease 07/21/22 Valery Veronica, PA-C [address]09 [place] [address] Physician Supervisor Bindery Dermatology 07/21/22 Brea Quinn APRN MINIBUS DRIVER 500 [place] [address] Nurse Practitioner Dermatology 09/21/22 Brea Quinn APRN MINIBUS DRIVER [address] [place] [address] Assigned Surgical Provider 10/09/22 05/01/24 [place] [address] [place] [address] [address] Assigned Musculoskeletal Provider 10/09/22 05/01/24 Alfonso Renteria MD [address] [place] [address] Assigned Neuroscience Provider 04/02/23 09/29/24 Radha Lomeli APRN MINIBUS DRIVER [address] [place] [address] Assigned Heart and Vascular Provider 05/28/23 Jelena David, SONJA [address] [facility] [place] [address] MD Ophthalmology 06/15/23 Pao Joseph, VJ Personal Advocate & Liaison (PAL) Nurse 08/01/23 11/07/23 Esha Grimm PA-C [address] [place] [phone] Assigned PCP 07/16/23 Valery Veronica PA-C [address] [place] [address] 696265 Physician Supervisor Bindery Dermatology 09/19/23 Rey Tay MD [address] [place] [address] 186655 Gastroenterology 09/20/23 Rocky Zepeda DO [address] [place] [address] 930025 Physician Gastroenterology 09/20/23 Philip Dumont MD [address] [place] [address] 703285 Physician Ophthalmology 09/22/23 Meredith Carrera PA-C [address] [place] [address] 767915 Assigned Gastroenterology Provider 11/01/23 Neil Kent MD [address] [place] [address] Dermatology 11/02/23 [place] [address] [place] [address] Neurological Surgery 12/26/23 Audrey Waite PA-C [address] [place] [address] Physician Supervisor Bindery Dermatology 02/28/24 Valery Veronica PA-C [id number] [address] [place] [address] Physician Supervisor Bindery Dermatology 04/10/24 Herminia Hatch MD [address] [place] [address] [phone] Assigned Rheumatology Provider 07/02/24 Jelena David OD [address] [place] [address] [place] [address] Ophthalmology 08/30/24 [place] [address] [place] [address] Assigned Neuroscience Provider 09/30/24 Maru Man PA-C [address] [place] [address] Physician Supervisor Bindery Dermatology 10/03/24 documented as of this encounter
--- OUTSIDE RECORDS SUMMARY | 2024-10-18 19:28 | XMS_ITS | Encounter Summary ---
Author Organization [facility] Address [address] [place] [address] Care Team Providers Care Front Man Name Role Phone Diana Desir [facility] Unavailable [phone] Rain GalavizC Unavailable [phone] Tavia Wyatt MD Unavailable Erica Farrell APRN SMALL BATTERY PLATE ASSEMBLER Unavailable Rich Barrett MD Unavailable [phone] Neil Kent MD Unavailable DesirKendrickDiana Stanislav [facility] Unavailable [phone] Livan Sharif MD Unavailable Catherine Cm MD Unavailable + Valery Veronica-C Unavailable Brea Quinn FUNERAL SERVICE PRACTITIONER/EMBALMER SMALL BATTERY PLATE ASSEMBLER Unavailable [phone] Alfonso Renteria MD Unavailable [phone] Esha GrimmC Primary Care Provider Radha Lomeli FUNERAL SERVICE PRACTITIONER/EMBALMER SMALL BATTERY PLATE ASSEMBLER Unavailable Jelena David OD Unavailable Al[place], Esha M PA-C Unavailable [phone] Valery Veronica PA-C Unavailable [phone] Rey Tay MD Unavailable Rocky Zepeda DO Unavailable Philip Dumont MD Unavailable [phone] Meredith Carrera PA-C Unavailable [phone] Neil Kent MD Unavailable Juan Pablo Emmanuel MD Unavailable Audrey Waite PA-C Unavailable [phone] Valery Veronica PA-C Unavailable [phone] Herminia Hatch MD Unavailable Jelena David OD Unavailable Encounter Details Date Type Department Care Team (Late st Contact Info) Description 09/20/2024 1:45 PM CDT Lab [facility] [address] [place] [phone] Vaginal discharge Social History Tobacco Use Types Packs/Day Years [...] exercise at this level? 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 Gender Identity Female 03/02/2021 5:45 PM CDT Sexual Orientation Straight 02/28/2020 12 :51 AM CDT documented as of this encounter Plan of Treatment Upcoming Encounters Date Type Department Care Team (Late st Contact Info) Description 10/22/2024 11:00 AM CDT Office Visit [address] [phone] Maru Man PA-C [address] [place] [address] 203770 10/23/2024 PRE VISIT [facility] Neurology [facility] - [address], [address] [address] Johnny Penn MD [address] [place] [address] Previsit 10/23/2024 9:30 AM CDT Office Visit [facility] Neu[facility] - [address], [address] [place] [phone] [place] [address] [place] [address] Johnny Penn MD [address] [facility] [place] [address] 10/24/2024 4:00 PM CDT Office Visit [facility] [address] [place] [phone] Jelena David, [address] [facility] [place] [address] 10/31/2024 9:15 AM CDT Virtual Visit [facility] [address] [place] [phone] Meredith Carrera PA-C [address] [place] [address] 12/20/2024 2:30 PM CDT [facility] [address] [place] [address] Esha Grimm PA-C [id number] [place] [phone] documented as of this encounter Procedures Procedure Name Priority Date/Time Associated Diagnosis Comments UA MICROSCOPIC WITH REFLEX TO CULTURE Routine 09/20/2024 1:42 PM CDT Vaginal discharge UA MACROSCOPIC WITH REFLEX TO MICRO AND CULTURE Routine 09/20/2024 1:42 PM CDT Vaginal discharge WET PREPARATION Routine 09/20/2024 1:42 PM CDT Vaginal discharge TREPONEMA ABS W REFLEX TO RPR AND TITER Routine 09/20/2024 1:38 PM CDT Vaginal discharge documented in this encounter Results * (ABNORMAL) UA Microscopic with Reflex to Culture (09/20/2024 1:42 PM CDT) Bacteria Urine Few(A) None Seen /HPF [facility] 09/20/2024 1:56 PM CDT [facility] RBC Urine 0-2 0-2 /HPF /HPF [facility] 09/20/2024 1:56 PM CDT [facility] WBC Urine 0-5 0-5 /HPF /HPF [facility] 09/20/2024 1:56 PM CDT [facility] Squamous Epithelials Urine Few(A) None Seen /LPF [facility] 09/20/2024 1:56 PM CDT [facility] Urine URINE SPECIMEN OBTAINED BY CLEAN CATCH PROCEDURE / Unknown Non-blood Collection / Unknown 09/20/2024 1:42 PM CDT 09/20/2024 1:42 PM CDT Narrative [facility] - 09/20/2024 1:56 PM CDT Urine Culture not indicated us Esha Grimm PA-C LAB - URINE ORDERABLES Final R esult [facility] [address] [place] [address] Lab (no room number, 1st floor of clinic) [place] [address], [place] * (ABNORMAL) Wet preparation (09/20/2024 1:42 PM CDT) Trichomonas Absent Absent REINA 09/20/2024 1:56 PM CDT [facility] Yeast Absent Absent [facility] 09/20/2024 1:56 PM CDT [facility] Clue Cells Absent Absent [facility] 09/20/2024 1:56 PM CDT [facility] WBCs/high power field 1+(A) None REINA 09/20/2024 1:56 PM CDT [facility] Swab VAGINAL STRUCTURE / Unknown Non-blood Collection / Unknown 09/20/2024 1:42 PM CDT 09/20/2024 1:42 PM CDT us Esha Grimm PA-C LAB - MICRO GENERAL ORDERABLES Final Result [facility] [id number] [place] [address] Lab (no room number, 1st floor of clinic) [place] [address], [place] * (ABNORMAL) UA Macroscopic with reflex to Microscopic and Culture (09/20/2024 1:42 PM CDT) Color Urine Yellow Colorless, Straw, Light Yellow, Yellow 09/20/2024 1:46 PM CDT [facility] Appearance Urine Clear Clear 09/21/19 25 1:46 PM CDT [facility] Glucose Urine Negative Negative mg/dL 09/20/2024 1:46 PM CDT [facility] Bilirubin Urine Negative Negative 1:46 PM CDT [facility] Ketones Urine Negative Negative mg/dL 09/20/2024 1:46 PM CDT [facility] Specific Basom Urine <=1.005 1.003 - 1.035 09/20/2024 1:46 PM CDT [facility] Blood Urine Trace(A) Negative 09/20/2024 1:46 PM CDT [facility] pH Urine 5.5 5.0 - 7.0 09/20/2024 1:46 PM CDT [facility] Protein Albumin Urine Negative Negative mg/dL 09/20/2024 1:46 PM CDT [facility] Urobilinogen Urine 0.2 0.2, 1.0 E.U./dL 09/20/2024 1:46 PM CDT [facility] Nitrite Urine Negative Negative 09/20/2024 1:46 PM CDT [facility] Leukocyte Esterase Urine Negative Negative 09/20/2024 1:46 PM CDT [facility] Urine URINE SPECIMEN OBTAINED BY CLEAN CATCH PROCEDURE / Unknown Non-blood Collection / Unknown 09/20/2024 1:42 PM CDT 09/20/2024 1:42 PM CDT us Esha Grimm PA-C LAB - URINE ORDERABLES Final R esult [facility] [address] [place] [address] Lab (no room number, 1st floor of clinic) [place] [address] * Treponema Abs w Reflex to RPR and Titer (09/20/2024 1:38 PM CDT) Treponema Antibody Total Nonreactive Nonreactive 09/20/2024 8:54 PM CDT [facility]/EN DO Blood BLOOD SPECIMEN / Unknown Venipuncture / Unknown 09/20/2024 1:38 PM CDT 09/20/2024 1:38 PM CDT us Esha Grimm PA-C LAB - BLOOD ORDERABLES Final R esult [facility]PROT/ENDO [facility]/Prot/Endo [address] [facility] [address] Building, [address] documented in this encounter Visit Diagnoses Diagnosis Vaginal discharge Leukorrhea, not specified as infective documented in this encounter Additional Health Concerns Assessment Noted Time PHQ-9 Depression Total Score: 3 02/07/20 24 9:33 AM CDT documented as of this encounter Care Teams Front Man Relationship Specialty Start Date End Date Esha Grimm PA-C [address] [place] [phone] PCP - General Family Medicine 05/04/23 Diana Desir, [facility] [place] [address] Pharmacist Pharmacist 04/17/21 Rain Galaviz PA-C [address] [place] [address] [address] [place] [phone] Physician Residential Instructor Dermatology 04/28/21 Tavia Wyatt MD [address] [place] [address] [address] [place] [phone] Dermatology 07/14/21 Erica Farrell APRN SMALL BATTERY PLATE ASSEMBLER [address] [place] [address] Nurse Practitioner Cardiovascular Disease 09/09/21 Rich Barrett MD [address] [place] [address] Physician Ophthalmology 01/21/22 Neil Kent MD 500 [place], [place] 268815 Dermatology 02/24/22 Diana Desir, [facility] [address] [place], [place] 4218[address] Assigned MTM Pharmacist 04/07/22 Livan Sharif MD [address] [place] 09[address] Cardiovascular Disease 05/14/22 Catherine Cm MD [address] [place] 74[address]55 Cardiovascular Disease 07/21/22 Valery Veronica PAUcheC [address] [place], [place] 462225 Physician Residential Instructor Dermatology 07/21/22 Brea Quinn APRN SMALL BATTERY PLATE ASSEMBLER 500 [place], [place] 244295 Nurse Practitioner Dermatology 09/21/22 Alfonso Renteria MD [address] [facility] [address] [place] [address] Assigned Neuroscience Provider 04/02/23 09/29/24 Radha Lomeli APRN SMALL BATTERY PLATE ASSEMBLER [address] [facility] [address] [place], [place] 440[address] Assigned Heart and Vascular Provider 05/28/23 Jelena David OD [address] [facility] [place] [address] MD Ophthalmology 06/15/23 Esha Grimm PA-C [address] [place] [phone] Assigned PCP 07/16/23 Valery Veronica PA-C [address] [place] [address] 078005 Physician Residential Instructor Dermatology 09/19/23 Rey Tay MD [address] [place] [address] 372255 Gastroenterology 09/20/23 Rocky Zepeda DO [address] [place] [address] 531885 Physician Gastroenterology 09/20/23 Philip Dumont MD [address] [place] [address] 706655 Physician Ophthalmology 09/22/23 Meredith Carrera PA-C [address] [place] [address] 966695 Assigned Gastroenterology Provider 11/01/23 Neil Kent MD [address] [address] Dermatology 11/02/23 [place] [address] [place] [address] Neurological Surgery 12/26/23 Audrey Waite PA-C 500 [place] [address] Physician Residential Instructor Dermatology 02/28/24 Valery Veronica PA-C [address]16 [address] [place] [address] Physician Residential Instructor Dermatology 04/10/24 Herminia Hatch MD [facility]5 [place], [place] [phone] Assigned Rheumatology Provider 07/02/24 [place] [address] [place] [address] [place] [address] Ophthalmology 08/30/24 documented as of this encounter
--- OUTSIDE RECORDS SUMMARY | 2024-10-18 19:28 | XMS_ITS | Encounter Summary ---
Author Organization [facility] Address [address] [place] [address] Care Team Providers Care Temp Recruiter Name Role Phone Diana Desir [facility] Unavailable Rain GalavizC Unavailable Tavia Wyatt MD Unavailable Erica Farrell APRN PACKAGE DYEING MACHINE OPERATOR Unavailable Rich Barrett MD Unavailable [phone] Neil Kent MD Unavailable DesirKendrickDiaan Stanislav [facility] Unavailable [phone] Livan Sharif MD Unavailable Catherine Cm MD Unavailable + Valery Veronica-C Unavailable Brea Quinn TOBACCO BLENDER PACKAGE DYEING MACHINE OPERATOR Unavailable Alfonso Renteria MD Unavailable [phone] Esha GrmimC Primary Care Provider Radha Lomeli TOBACCO BLENDER PACKAGE DYEING MACHINE OPERATOR Unavailable Jelena David OD Unavailable Alfa, Esha M PA-C Unavailable [phone] Valery Veronica PA-C Unavailable Rey Tay MD Unavailable Duane Rockyanne [facility] Unavailable Philip Dumont MD Unavailable Meredith Carrera-C Unavailable [phone] Neil Kent MD Unavailable Juan Pablo Emmanuel MD Unavailable Audrey Waite PA-C Unavailable Valery Veronica PA-C Unavailable [phone] Herminia Hatch MD Unavailable Jelena David OD Unavailable Reason for Visit * Reason Onset Date Comments Vaginal Discharge Entered automa [facility] Problem 09/20/2024 Encounter Details Date Type Department Care Team (Late st Contact Info) Description 09/19/2024 9:40 PM CDT E-Visit [address] [phone] Esha Grimm PA-C [id number] [place] [phone] Vaginal Discharge (Entered automatically b... Social History Tobacco Use Types Packs/Day Years [...] Answer Date Recorded PHQ-2 Score 1 02/07/2024 [facility] - Occupational Stress [...] exercise at this level? 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 Given your symptoms, I would like you to do a lab-only visit to determine what is causing them. I have placed the orders. Please schedule an appointment with the lab right here in [facility], or call [phone]. I will let you know when the results are back and next steps to take. Schedule a Lab Only appointment here. documented in this encounter Miscellaneous Notes * Telephone Encounter - Esha Grimm PA-C - 09/20/2024 7:16 AM CDT Provider E-Visit time total (minutes): 13 minutes documented in this encounter Plan of Treatment Upcoming Encounters Date Type Department Care Team (Late st Contact Info) Description 10/22/2024 11:00 AM CDT Office Visit [facility] [address] [phone] Maru Man PA-C [address] [place] [address] 10/23/2024 PRE VISIT [facility] - [address] [place] [phone] Johnny Penn MD [address] [place], [place] 5[address] Previsit 10/23/2024 9:30 AM CDT Office Visit [facility] - [address] [place] [phone] [place] [address] [place] [address] Johnny Penn MD [address] [place] [address] 10/24/2024 4:00 PM CDT Office Visit [facility] [address] [facility] [address] [place] [address] Jelena David, OD [address] [facility] [address] 10/31/2024 9:15 AM CDT Virtual Visit [facility] [address] 4th [place] [phone] Meredith Carrera PA-C [address] [place] [address] 12/20/2024 2:30 PM CDT Office Visit [facility] [address] [place] [phone] Esha Girmm PA-C [address] [place] [address] documented as of this encounter Procedures Procedure Name Priority Date/Time Associated Diagnosis Comments CHLAMYDIA TRACHOMATIS/NEISSERI A GONORRHOEAE BY PCR Routine 09/20/2024 1:42 PM CDT Vaginal discharge documented in this encounter Results * Chlamydia & Gonorrhea by PCR, [facility] Collect (09/20/2024 1:42 PM CDT) Chlamydia Trachomatis Negative Negative 09/21/2024 11:40 AM CDT [facility] Comment: Negative for C. trachomatis rRNA by tool and equipment rental clerk mediated amplification. A negative result by tool and equipment rental clerk mediated amplification does not preclude the presence of infection because results are dependent on proper and adequate collection, absence of inhibitors and sufficient rRNA to be detected. Neisseria gonorrhoeae Negative Negative 09/21/2024 11:40 AM CDT [facility] Comment:Negative for N. gono rrhoeae rRNA by tool and equipment rental clerk mediated amplification. A negative result by tool and equipment rental clerk mediated amplification does not preclude the presence of C. trachomatis infection because results are dependent on proper and adequate collection, absence of inhibitors and sufficient rRNA to be detected. CTNG Specimen Source Urine, Voided 09/21/2024 11:40 AM CDT [facility] Urine VOIDED URINE SPECIMEN / Unknown Non-blood Collection / Unknown 09/20/2024 1:42 PM CDT 09/20/2024 1:42 PM CDT Esha Grimm PA-C LAB - MICRO GENERAL ORDERABLES Final Result [facility] Inf. Diseases Diag. Lab [address] [facility], [address] [place] [address] * (ABNORMAL) Wet preparation (09/20/2024 1:42 PM [...] 1:42 PM CDT 09/20/2024 1:42 PM CDT Esha Grimm PA-C LAB - MICRO GENERAL ORDERABLES Final Result [facility] Lab [address] [place] [address] Lab (no room number, 1st floor of clinic) [place] [address], [facility] * (ABNORMAL) UA Macroscopic with reflex to Microscopic and Culture (09/20/2024 1:42 PM CDT) Color Urine Yellow Colorless, Straw, Light Yellow, Yellow 09/20/2024 1:46 PM CDT [facility] Appearance Urine Clear Clear 09/21/19 25 1:46 PM CDT [facility] Glucose Urine Negative Negative mg/dL 09/20/2024 1:46 PM CDT [facility] Bilirubin Urine Negative Negative 5 1:46 PM CDT [facility] Ketones Urine Negative Negative mg/dL 09/20/2024 1:46 PM CDT [facility] Specific [place] Urine <=1.005 1.003 - 1.035 09/20/2024 1:46 [...] 1:42 PM CDT 09/20/2024 1:42 PM CDT Esha Grimm PA-C LAB - URINE ORDERABLES Final R esult CR [facility] [address] [facility] (no room number, 1st floor of clinic) [place] [address], [facility] * Treponema Abs w Reflex to RPR and Titer (09/20/2024 1:38 PM CDT) Treponema Antibody Total Nonreactive Nonreactive 09/20/2024 8:54 PM CDT [facility]/PROT/EN DO Blood BLOOD SPECIMEN / Unknown Venipuncture / Unknown 09/20/2024 1:38 PM CDT 09/20/2024 1:38 PM CDT Esha Grimm PA-C LAB - BLOOD ORDERABLES Final R esult [facility] SPECIAL[facility] CORE/PROT/ENDO [facility] Special[facility] Core/Prot/Endo [address] Building, Room [address] documented in this encounter Visit Diagnoses Diagnosis Vaginal discharge- Primary Leukorrhea, not specified as infective documented in this encounter Additional Health Concerns Assessment Noted Time PHQ-9 Depression Total Score: 3 02/07/20 24 9:33 AM CDT documented as of this encounter Care Teams Temp Recruiter Relationship Specialty Start Date End Date Esha Grimm PA-C [address] [place] [address] PCP - General Family Medicine 05/04/23 Diana Desir, [facility] [address] [place] [address] Pharmacist Pharmacist 04/17/21 Rain Galaviz PA-C [address] [place] [address] [address] [place] [address] Physician Personal Consultant Dermatology 04/28/21 Tavia Wyatt MD [address] [place] [address] [address] [place], [place] [phone] Dermatology 07/14/21 Erica Farrell APRN PACKAGE DYEING MACHINE OPERATOR [address] [place], [place] [address] Nurse Practitioner Cardiovascular Disease 09/09/21 Rich Barrett MD [address] [place] [address] Physician Ophthalmology 01/21/22 Neil Kent MD 500 [place] [address] Dermatology 02/24/22 Diana Desir, [facility] [address] [place] [address] Assigned MTM Pharmacist 04/07/22 Livan Sharif MD [address] [facility] [address] [place] [address] Cardiovascular Disease 05/14/22 Catherine Cm MD [address] [facility] [place] [address] Cardiovascular Disease 07/21/22 Valery Veronica PA-C [address] [place] [address] Physician Personal Consultant Dermatology 07/21/22 Brea Quinn APRN PACKAGE DYEING MACHINE OPERATOR [address] [place] [address] 133695 Nurse Practitioner Dermatology 09/21/22 Alfonso Renteria MD [address] [facility] 200 [place], [place] 217836 Assigned Neuroscience Provider 04/02/23 09/29/24 Radha Lomeli APRN PACKAGE DYEING MACHINE OPERATOR [address] [place] [address] Assigned Heart and Vascular Provider 05/28/23 Jelena David OD [address] [facility] [address] Ophthalmology 06/15/23 Ehsa Grimm PA-C [address] [place] [address] Assigned PCP 07/16/23 Valery Veronica PA-C [address] [place] [address] Physician Personal Consultant Dermatology 09/19/23 Rey Tay MD [address] [place] [address] MD Gastroenterology 09/20/23 Rocky Zepeda DO [address] [place] [address] 017855 Physician Gastroenterology 09/20/23 Philip Dumont MD [address] [place] [address] 801975 Physician Ophthalmology 09/22/23 Meredith Carrera PA-C [address] [place] [address] 288985 Assigned Gastroenterology Provider 11/01/23 Neil Kent MD [address] [address] Dermatology 11/02/23 [place] [address] [facility] [place] [address] Neurological Surgery 12/26/23 Audrey Waite PA-C [address] [place] [address] Physician Personal Consultant Dermatology 02/28/24 Valery Veronica PA-C [address] [place] [address] Physician Personal Consultant Dermatology 04/10/24 Herminia Hatch MD [facility]5 [place] [address] Assigned Rheumatology Provider 07/02/24 Jelena David OD [address] [place] [address] [place] [address] Ophthalmology 08/30/24 documented as of this encounter
--- OUTSIDE RECORDS SUMMARY | 2024-10-18 19:28 | XMS_ITS | Encounter Summary ---
Author Organization [facility] Address [address] [place] [address] Care Team Providers Care Automotive Paint Technician Name Role Phone Diana Desir [facility] Unavailable Rain GalavizC Unavailable Tavia Wyatt MD Unavailable Erica Farrell APRN PROPAGATION WORKER Unavailable Rich Barrett MD Unavailable [phone] Neil Kent MD Unavailable DesirKendrickDiana Stanislav [facility] Unavailable [phone] Livan Sharif MD Unavailable Catherine Cm MD Unavailable + Valery Veronica-C Unavailable [phone] Brea Quinn ROLLOUT MANAGER PROPAGATION WORKER Unavailable Alfonso Renteria MD Unavailable [phone] Esha GrimmC Primary Care Provider Radha Lomeli ROLLOUT MANAGER PROPAGATION WORKER Unavailable Jelena David OD Unavailable Alfa, Esha M PA-C Unavailable [phone] Valery Veronica PA-C Unavailable Rey Tay MD Unavailable Rocyk Zepeda DO Unavailable Philip Dumont MD Unavailable [phone] Meredith Carrera-C Unavailable Neil Kent MD Unavailable Juan Pablo Emmanuel MD Unavailable [phone] Audrey Waite PA-C Unavailable Valery Veronica PA-C Unavailable Herminia Hatch MD Unavailable Jelena David OD Unavailable Juan Pablo Emmanuel MD Unavailable Maru Man-C Unavailable Encounter Details Date Type Department Care Team (Late st Contact Info) Description 09/07/2024 MyC Medical Advice [facility] [address] [address] Meredith Carrera PAUcheC [address] [place] [address] Social History Tobacco Use Types Packs/Day [...] you attend chur ch or sabianist services? 1 to 4 times [...] Answer Date Recorded PHQ-2 Score 1 02/07/2024 [facility] [...] exercise at this level? 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 Gender Identity Female 03/02/2021 5:45 PM CDT Sexual Orientation Straight 02/28/2020 12 :51 AM CDT documented as of this encounter Plan of Treatment Upcoming Encounters Date Type Department Care Team (Late st Contact Info) Description 10/22/2024 11:00 AM CDT Office Visit [facility] [address] [phone] Maru Man PA-C [address] [address] 10/23/2024 PRE VISIT [facility] Neurology [facility] - [address], [address] [place] [address] Johnny Penn MD [address] [place] [address] Previsit 10/23/2024 9:30 AM CDT Office Visit [facility] Neurology [facility] [address] [facility], [address] [place] [phone] [place] [address] [place] [place] [address] Johnny Penn MD [address] [place] 3[address]85 10/24/2024 4:00 PM CDT Office Visit [facility] [address] [place] [phone] Jelena David, [address] [facility] [place] [address] 10/31/2024 9:15 AM CDT Virtual Visit [facility] Gastroenterology [address] 4th [place] [phone] Meredith Carrera PA-C [address] [place] [address] 576[address] 12/20/2024 2:30 PM CDT Office Visit [facility] [address] [place] [address] Esha Grimm PA-C [address] [place] [address] documented as of this encounter Visit Diagnoses Not on filedocumented in this encounter Additional Health Concerns Infection Onset Date Last Indicated Resolved Time Rule Out COVID-19 10/04/2024 10/04/2024 10/05/2024 9:42 AM CDT Assessment Noted Time PHQ-9 Depression Total Score: 3 02/07/20 24 9:33 AM CDT documented as of this encounter Care Teams Automotive Paint Technician Relationship Specialty Start Date End Date Esha Grimm PA-C [address] [place] [address] PCP - General Family Medicine 05/04/23 Diana Desir, [facility] [address] [place] [address] Pharmacist Pharmacist 04/17/21 Rain Galaviz PA-C [address] [place] [address] [address] [facility] [address] Physician Audit Clerk Dermatology 04/28/21 Tavia Wyatt MD [address] [place] [address] DR RAZO [facility] [address] Dermatology 07/14/21 Erica Farrell APRN PROPAGATION WORKER [address] [place] [address] Nurse Practitioner Cardiovascular Disease 09/09/21 Rich Barrett MD [address] [place] [address] Physician Ophthalmology 01/21/22 Neil Kent MD 500 [place] [address] Dermatology 02/24/22 Diana Desir, [facility] 3033 [place] [address] Assigned MTM Pharmacist 04/07/22 Livan Sharif MD [address] [place] 717185 Cardiovascular Disease 05/14/22 Catherine Cm MD [address] [place] 020215 Cardiovascular Disease 07/21/22 Valery Veronica PA-C 909 [place], [place] 0[address]215 Physician Audit Clerk Dermatology 07/21/22 Brea Quinn APRN PROPAGATION WORKER 500 [place], [place] 238535 Nurse Practitioner Dermatology 09/21/22 Alfonso Renteria MD 5775 [facility] 200 [place], [place] 963156 Assigned Neuroscience Provider 04/02/23 09/29/24 Radha Lomeli, ROLLOUT MANAGER PROPAGATION WORKER [address] [place] 622335 Assigned Heart and Vascular Provider 05/28/23 Jelena David OD [address] [facility] [place] [address] Ophthalmology 06/15/23 Esha Grimm PA-C [address] [place] [address] Assigned PCP 07/16/23 Valery Veronica PA-C [address] [place] [address] Physician Audit Clerk Dermatology 09/19/23 Rey Tay MD [address] [place] [address] MD Gastroenterology 09/20/23 Rocky Zepeda DO [address] [place] [address] 724685 Physician Gastroenterology 09/20/23 Philip Dumont MD [address] [place] [address] 518345 Physician Ophthalmology 09/22/23 Meredith Carrera PA-C [address] [place] [address] 133025 Assigned Gastroenterology Provider 11/01/23 Neil Kent MD [address] [address] Dermatology 11/02/23 [place] [address] [place], [place] 289827 Neurological Surgery 12/26/23 Audrey Waite PA-C [address] [place] [address] 476005 Physician Audit Clerk Dermatology 02/28/24 Valery Veronica PA-C [address] [place] [address] Physician Audit Clerk Dermatology 04/10/24 Herminia Hatch MD [facility]5 [place], [place] 75735125 Assigned Rheumatology Provider 07/02/24 Jelena David OD [address] [facility] [place] [address] Ophthalmology 08/30/24 [place] [address] [place] [address] Assigned Neuroscience Provider 09/30/24 Maru Man PA-C [address] [place] [address] Physician Audit Clerk Dermatology 10/03/24 documented as of this encounter
--- OUTSIDE RECORDS SUMMARY | 2024-10-18 19:28 | XMS_ITS | Encounter Summary ---
Author Organization [facility] Address [address] [place] [address] Care Team Providers Care Plant Worker Name Role Phone Diana Desir [facility] Unavailable [phone] Rain GalavizC Unavailable Tavia Wyatt MD Unavailable Erica Farrell APRN BOAT HAND Unavailable Rich Barrett MD Unavailable [phone] Neil Kent MD Unavailable DesirKendrickDiana Stanislav [facility] Unavailable [phone] Livan Sharif MD Unavailable Catherine Cm MD Unavailable + Valery Veronica-C Unavailable Brea Quinn FIELD SERVICE TECHNICIAN POULTRY BOAT HAND Unavailable Alfonso Renteria MD Unavailable [phone] Esha GrimmC Primary Care Provider Radha Lomeli FIELD SERVICE TECHNICIAN POULTRY BOAT HAND Unavailable Jleena David OD Unavailable Alfa, Esha M PA-C Unavailable [phone] Valery Veronica PA-C Unavailable [phone] Rey Tay MD Unavailable Rocky Zepeda DO Unavailable Philip Dumont MD Unavailable [phone] Meredith Carrera PA-C Unavailable [phone] Neil Kent MD Unavailable Juan Pablo Emmanuel MD Unavailable [phone] Audrey Waite PA-C Unavailable [phone] Valery Veronica-C Unavailable [phone] Herminia Hatch MD Unavailable Jelena David OD Unavailable Encounter Details Date Type Department Care Team (Latest Contact Info) Description 09/20/2024 Travel Social History Tobacco Use Types Packs/Day [...] Recorded PHQ-2 Score 1 02/07/2024 [facility] - Occupational [...] exercise at this level? 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 Gender Identity Female 03/02/2021 5:45 PM CDT Sexual Orientation Straight 02/28/2020 12 :51 AM CDT documented as of this encounter Plan of Treatment Upcoming Encounters Date Type Department Care Team (Late st Contact Info) Description 10/22/2024 11:00 AM CDT Office Visit [address] [phone] Maru Man PA-C [address] [place] [address] 10/23/2024 PRE VISIT [facility] Neurology [facility] - [address] [address] Johnny Penn MD 0443 [place], [place] [address]415 Previsit 10/23/2024 9:30 AM CDT Office Visit [facility] Neurology [facility] - [address], [facility] 450 [place] [address] [place] [address] [place] [address] Johnny Penn MD [address] [place] 2[address]75 10/24/2024 4:00 PM CDT [facility] [address] [facility] [address] [place] [phone] Jelena David, SONJA [address] [place] [address] 10/31/2024 9:15 AM CDT Virtual Visit [facility] Gastroenterology [address] 4th [place] [phone] Meredith Carrera PA-C [address] [place] [address] 252745 12/20/2024 2:30 PM CDT Office Visit [facility] [address] [place] [address] Esha Grimm PA-C [address] [place] [phone] documented as of this encounter Visit Diagnoses Not on filedocumented in this encounter Additional Health Concerns Assessment Noted Time PHQ-9 Depression Total Score: 3 02/07/20 24 9:33 AM CDT documented as of this encounter Care Teams Plant Worker Relationship Specialty Start Date End Date Esha Grimm PA-C [id number] [place] [address] PCP - General Family Medicine 05/04/23 Diana Desir, [facility] 3033 [place] [address] Pharmacist Pharmacist 04/17/21 Rain Galaviz PA-C [address] [place] [address] DR RAZO Lara [place] [address] Physician Retail Management Keyholder Dermatology 04/28/21 Tavia Wyatt MD [address] [place] [address] DR RAZO Lara ADAIR FELICIAKIARRAENMA [place] [address] Dermatology 07/14/21 Erica Farrell APRN BOAT HAND [address] [place] [address] Nurse Practitioner Cardiovascular Disease 09/09/21 Rich Barrett MD [address] [place] 150155 Physician Ophthalmology 01/21/22 Neil Kent MD 500 [place], [place] 203885 Dermatology 02/24/22 Diana Desir, [facility] [address] [place] [address] Assigned MTM Pharmacist 04/07/22 Livan Sharif MD [address] [place] 745815 Cardiovascular Disease 05/14/22 Catherine Cm MD [address] [place] 036805 Cardiovascular Disease 07/21/22 Valery Veronica, PA-C [address] [place] [address] 701355 Physician Retail Management Keyholder Dermatology 07/21/22 Brea Quinn APRN BOAT HAND [address] [place] [address] 576475 Nurse Practitioner Dermatology 09/21/22 Alfonso Renteria MD 57[address] [facility] [address] 200 [place], [place] 746526 Assigned Neuroscience Provider 04/02/23 09/29/24 Radha Lomeli APRN BOAT HAND [address] [place] 6388500 [place], [place] 207755 Assigned Heart and Vascular Provider 05/28/23 Jelena David OD [facility] [facility] [address] [place] [phone] Ophthalmology 06/15/23 Esha Grimm PA-C [address] [place] [address]6867283 Assigned PCP 07/16/23 Valery Veronica, PA-C [address] [place] [address] 779225 Physician Retail Management Keyholder Dermatology 09/19/23 Rey Tay MD [address] [place] [address] 653435 Gastroenterology 09/20/23 Rocky Zepeda DO [address] [place] [address] Physician Gastroenterology 09/20/23 Philip Dumont MD [address] [place] [address] Physician Ophthalmology 09/22/23 Meredith Carrera PA-C [address] [place] [address] Assigned Gastroenterology Provider 11/01/23 Neil Kent MD [address] [place] [address] MD Dermatology 11/02/23 Juan [place] [address] [place] [address] [address] Neurological Surgery 12/26/23 Audrey Waite PA-C [address] [place] [address] Physician Retail Management Keyholder Dermatology 02/28/24 Valery Veronica PA-C 112561 [place] [address] Physician Retail Management Keyholder Dermatology 04/10/24 Herminia Hatch MD [facility]5 [place], [place] 31196125 Assigned Rheumatology Provider 07/02/24 [place] [address] [place] [address] [place] [address] Ophthalmology 08/30/24 documented as of this encounter
--- OUTSIDE RECORDS SUMMARY | 2024-10-18 19:28 | XMS_ITS | Encounter Summary ---
Author Organization [facility] Address [address] [place] [address] Care Team Providers Care Micro Paleontologist Name Role Phone Lita Oseguera Unavailable Unavailable Marija Edgar APRN ROSIN BARREL FILLER Primary Care Provider + Marija Edgar APRN ROSIN BARREL FILLER Unavailable Keisha Dotson MD Unavailable Diana Desir [facility] Unavailable [phone] Rain Galaviz PA-C Unavailable Tavia Wyatt MD Unavailable [phone] Erica Farrell APRN ROSIN BARREL FILLER Unavailable Rich Barrett MD Unavailable [phone] Neil Kent MD Unavailable Roney Story DPM Unavailable Diana Desir [facility] Unavailable [phone] Jelena David OD Unavailable Galo Burrell MD Unavailable Unavailable Livan Sharif MD Unavailable Livan Sharif MD Unavailable Catherine Cm MD Unavailable + Vlaery Veronica PA-C Unavailable Catherine Cm MD Unavailable + Johnny Murillo MD Unavailable [phone] Brea Quinn FLATCAR WHACKER ROSIN BARREL FILLER Unavailable [phone] Brea Quinn FLATCAR WHACKER ROSIN BARREL FILLER Unavailable [phone] Jose Francisco Johnson MD Unavailable Livan Sharif MD Unavailable Catherine Cm MD Unavailable + Sydnie Martinez RN Unavailable Unavailable Alfonso Renteria MD Unavailable Esha Grimm PA-C Primary Care Provider Cheng Todd PA-C Unavailable Radha Lomeli FLATCAR WHACKER ROSIN BARREL FILLER Unavailable Jelena David Radha OD Unavailable [phone] Pao Joseph RN Unavailable Unavailable Esha Grimm PA-C Unavailable [phone] JeremíasValery damon PA-C Unavailable Rey Tay MD Unavailable Rocky Zepeda DO Unavailable Philip Dumont MD Unavailable [phone] Meredith Carrera PA-C Unavailable [phone] Neil Kent MD Unavailable Juan Pablo Emmanuel MD Unavailable Audrey Waite PA-C Unavailable Valery Veronica PA-C Unavailable Herminia Hatch MD Unavailable Jelena David OD Unavailable Juan Pablo Emmanuel MD Unavailable Maru Man PA-C Unavailable [phone] Encounter Details Date Type Department Care Team (Late st Contact Info) Description 05/11/2022 [facility] Medical Advice [address] [address] Diana Desir, [facility] [address] [place] [address] Social History Tobacco Use Types Packs/Day Years [...] How often do you attend sikhism or pentecostal serv ices? Never 09/22/2021 Do [...] points; Administer PHQ-9 if positive 1 05/13/2022 [facility] [...] a senior living (including now)? No 09/22/2021 [place] Depression Scale Answer Date Recorded [place] Depression Score 5 01/14/2021 Last EPDS Self Harm Result Not on file 01/14 Education Answer Date Recorded What is the highest level of school you have completed or the highest degree you have received? 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 Gender Identity Female 03/02/2021 5:45 PM [...] 10/22/2024 11:00 AM CDT Office Visit [address] [phone] Maru Man PA-C [address] [place] [address] 406570 10/23/2024 PRE VISIT [facility] Neurology [facility] - [address], [address] [place] [phone] Johnny Penn MD [address] [place] [address] Previsit 10/23/2024 9:30 AM CDT Office Visit [facility] Neu[facility] - [address], [address] [place] [phone] [place] [address] [place] [address] Johnny Penn MD [address] [facility] [address] 10/24/2024 4:00 PM CDT Office Visit [facility] [address] [facility] [address] [place] [phone] Jelena David, [address] [facility] [place] [address] 10/31/2024 9:15 AM CDT Virtual Visit [facility] Clinic [address] [phone] Meredith Carrera PA-C [address] [place] [address] 169425 12/20/2024 2:30 PM CDT Office Visit [facility] [address] [place] [phone] Esha Grimm PA-C [address] [place] [address] documented as of this encounter Visit Diagnoses Not on filedocumented in this encounter Additional Health Concerns Infection Onset Date Last Indicated Resolved Time Rule Out COVID-19 05/17/2022 05/17/2022 05/17/2022 10:20 PM BACK END ARCHITECT Rule Out COVID-19 06/09/2022 06/09/2022 06/09/2022 9:35 AM BACK END ARCHITECT COVID-19 06/09/2022 06/09/2022 06/30/2022 11:4 1 PM BACK END ARCHITECT Rule Out COVID-19 11/10/2022 11/10/2022 11/11/2022 [...] documented as of this encounter Care Teams Micro Paleontologist Relationship Specialty Start Date End Date Marija Edgar APRN ROSIN BARREL FILLER PCP - General Nurse Practitioner 04/30/20 04/14/23 Esha Grimm PA-C [address] [place] [phone] PCP - General Family Medicine 05/04/23 Lita Oseguera Personal Advocate & Liaison (PAL) 02/28/20 03/27/23 Marija Edgar APRN ROSIN BARREL FILLER Assigned PCP 06/08/20 04/29/23 Keisha Dotson MD 909 [place], [place] 358005 Assigned Neuroscience Provider 06/04/20 04/01/23 Diana Deisr [facility] [address] [place], [place] 9[address] Pharmacist Pharmacist 04/17/21 Rain Galaviz PA-C [address] [place] [address] [address] [place] [address] Physician Cad Design Engineer Dermatology 04/28/21 Tavia Wyatt MD [address] [place] [address] DR RA[address] Lara [place] [address] Dermatology 07/14/21 Erica Farrell APRN ROSIN BARREL FILLER [address] [place] 511[address] Nurse Practitioner Cardiovascular Disease 09/09/21 Rich Barrett MD [address] [place] 252765 Physician Ophthalmology 01/21/22 Neil Kent MD 500 [place] [address] Dermatology 02/24/22 Roney Story DPM [address] [facility] [address] [place], [place] 938697 Assigned Musculoskeletal Provider 03/20/22 08/13/22 Diana Desir, [facility] [address] [place], [place] 372276 Assigned MTM Pharmacist 04/07/22 Jelena David OD [address] [facility] [place] [address] Assigned Surgical Provider 05/08/22 10/08/22 Galo Burrell MD Assigned Heart and Vascular Provider 04/17/22 06/11/22 Livan Sharif MD [address] [facility] [address] [place] [address] Cardiovascular Disease 05/14/22 Livan Sharif MD [address] [facility] [address] [place] [address] Assigned Heart and Vascular Provider 06/12/22 07/23/22 Catherine Cm MD [address] [facility] [address] [place] [address] Cardiovascular Disease 07/21/22 Valery Veronica, PA-C [address] [place] [address] Physician Cad Design Engineer Dermatology 07/21/22 Catherine Cm MD [address] [facility] [address] [place] [address] Assigned Heart and Vascular Provider 07/24/22 11/05/22 Johnny Murillo MD [address] [place] [address] Assigned Musculoskeletal Provider 08/14/22 10/08/22 Brea Quinn APRN ROSIN BARREL FILLER [address] [place] [address] Nurse Practitioner Dermatology 09/21/22 Brea Quinn APRN ROSIN BARREL FILLER [address] [place], [place] [address], [place] [address] Assigned Surgical Provider 10/09/22 05/01/24 [place] [address] [place] [address] Assigned Musculoskeletal Provider 10/09/22 05/01/24 Livan Sharif MD [address] [facility] [address] [place] [address] Assigned Heart and Vascular Provider 11/06/22 11/12/22 Catherine Cm MD [address] [facility] [address] [place] [address] [place] [address] Assigned Heart and Vascular Provider 11/13/22 05/27/23 Sydnie Martinez RN Personal Advocate & Liaison (PAL) Family Medicine 03/28/23 07/31/23 Alfonso Renteria MD 5775 [facility] 200 [place] [address] Assigned Neuroscience Provider 04/02/23 09/29/24 Cheng Todd PA-C [address] [place] [address] Assigned PCP 04/30/23 07/15/23 Radha Lomeli APRN ROSIN BARREL FILLER [address] [place] [address] Assigned Heart and Vascular Provider 05/28/23 Jelena David OD [address] [facility] [place] [address] MD Ophthalmology 06/15/23 Pao Joseph, RN Personal Advocate & Liaison (PAL) Nurse 08/01/23 11/07/23 Esha Grimm PA-C [address] [place] [phone] Assigned PCP 07/16/23 Valery Veronica PA-C [address] [place] [address]15 Physician Cad Design Engineer Dermatology 09/19/23 Rey Tay MD [address] [place] [address] 428255 MD Gastroenterology 09/20/23 Rocky Zepeda DO [address] [place] [address] 722995 Physician Gastroenterology 09/20/23 Philip Dumont MD [address] [place] [address] 615445 Physician Ophthalmology 09/22/23 Meredith Carrera PA-C [address] [place] [address] 622725 Assigned Gastroenterology Provider 11/01/23 Neil Kent MD [address] [place] [address] 497220 Dermatology 11/02/23 [place] [address] [place] [address] Neurological Surgery 12/26/23 Audrey Waite PA-C [address] [place] [address] Physician Cad Design Engineer Dermatology 02/28/24 Valery Veronica PA-C [address] [place] [address] Physician Cad Design Engineer Dermatology 04/10/24 Herminia Hatch MD [address] [place], [place] 86[address] Assigned Rheumatology Provider 07/02/24 Jelena David OD [address] [facility] [place] [address] Ophthalmology 08/30/24 [place] [address] [place] [address] Assigned Neuroscience Provider 09/30/24 Maru Man PA-C [address] [address] Physician Cad Design Engineer Dermatology 10/03/24 documented as of this encounter
--- OUTSIDE RECORDS SUMMARY | 2024-10-18 19:28 | XMS_ITS | Encounter Summary ---
Author Organization [facility] Address [address] [place] [address] Care Team Providers Care Home Economics Expert Name Role Phone Diana Desir [facility] Unavailable Rain GalavizC Unavailable Tavia Wyatt MD Unavailable Erica Farrell APRN POSITION CLASSIFICATION SPECIALIST Unavailable Rich Barrett MD Unavailable [phone] Neil Kent MD Unavailable DesirKendrickDiana Stanislav [facility] Unavailable [phone] Livan Sharif MD Unavailable Catherine Cm MD Unavailable + Valery Veronica-C Unavailable Brea Quinn TRAFFIC CONTROL SUPERVISOR POSITION CLASSIFICATION SPECIALIST Unavailable Alfonso Renteria MD Unavailable [phone] Esha GrimmC Primary Care Provider [phone] Radha Lomeli TRAFFIC CONTROL SUPERVISOR POSITION CLASSIFICATION SPECIALIST Unavailable [phone] Jelena David OD Unavailable Alfa, Esha M PA-C Unavailable [phone] Valery Veronica PA-C Unavailable Rey Tay MD Unavailable Rocky Zepeda DO Unavailable Philip Dumont MD Unavailable [phone] Meredith Carrera PA-C Unavailable [phone] Neil Kent MD Unavailable Juan Pablo Emmanuel MD Unavailable [phone] Audrey Waite PA-C Unavailable [phone] Valery Veronica PA-C Unavailable Herminia Hatch MD Unavailable Jelena David OD Unavailable Encounter Details Date Type Department Care Team (Late st Contact Info) Description 09/10/2024 Orders Only (auto-released) [facility] [address] [place] [address] [address] [place] [address] Fabiano Correa, REFRIGERATION TECHNICIAN [address] [place], [place] [address] Palpitations Social History Tobacco Use Types Packs/Day [...] week 05/07/2024 How often do you attend [facility] or [facility]ondo[facility] services? 1 to 4 [...] exercise at this level? 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 Neurology [facility] - [address], [address] [place] [address] Johnny Penn MD [address] [facility] [place] [address] Previsit 10/23/2024 9:30 AM CDT Office Visit [facility] Neurology [facility] [place] [address] [facility], [address] [place] [phone] [place] [address] [place], [place] [address] Johnny Penn MD [address] [facility] [place] [address] 10/24/2024 4:00 PM CDT Office Visit [facility] 3[address] [facility] [address] [place] [phone] Jelena David, [address] [facility] [place] [address] 10/31/2024 9:15 AM CDT Virtual Visit [facility] G[facility]ology [facility] [address]th [place] [phone] Meredith Carrera PA-C [address] [place] [address] 12/20/2024 2:30 PM CDT Office Visit [facility] [address] [place] [phone] Esha Grimm PA-C [address] [place] [address] documented as of this encounter Procedures Procedure Name Priority Date/Time Associated Diagnosis Comments ZIO PATCH MAIL OUT Routine 10/09/2024 5: 49 AM CDT Palpitations documented in this encounter Results * ZIO PATCH MAIL OUT (10/09/2024 5:49 AM CDT) Pathologist [facility] Prelim Results Patient had a min HR of 54 bpm, max HR of 133 bpm, and avg HR of 76 bpm. Predominant underlying rhythm was Sinus Rhythm. Isolated SVEs were rare (<1.0%), and no SVE Couplets or SVE Triplets were present. Isolated VEs were rare (<1.0%), and no VE Couplets or VE Triplets were present. CARDIOLOGY RESULTS Anatomical Region Laterality Modality Other 10/09/2024 5:49 AM CDT Narrative 10/09/2024 8:44 AM CDT 2-day and 8-hour recording. Rare PACs and PVCs. Patient-triggered activations correlated with sinus rhythm. us Fabiano Correa NP CV CARDIAC SERVICES ORDERA BLES Final Result documented in this encounter Visit Diagnoses Diagnosis Palpitations documented in this encounter Additional Health Concerns Assessment Noted Time PHQ-9 Depression Total Score: 3 02/07/20 24 9:33 AM CDT documented as of this encounter Care Teams Home Economics Expert Relationship Specialty Start Date End Date Esha Grimm PA-C [address] [place] [address] PCP - General Family Medicine 05/04/23 Diana Desir, [facility] [address] [facility] [place] [address] Pharmacist Pharmacist 04/17/21 Rain Galaviz PA-C [address] [place] [address] [address] [place], [place] [phone] Physician Atomic Fuel Assembler Dermatology 04/28/21 Tavia Wyatt MD [address] [place] [address] [address] [place], [place] [phone] Dermatology 07/14/21 Erica Farrell APRN POSITION CLASSIFICATION SPECIALIST [address] [place] [address] Nurse Practitioner Cardiovascular Disease 09/09/21 Rich Barrett MD [address] [place] [address] Physician Ophthalmology 01/21/22 Neil Kent MD 500 [place], [place] 835345 Dermatology 02/24/22 Diana Desir, [facility] 3033 [place], [place] 660816 Assigned [place] Pharmacist 04/07/22 Livan Sharif MD [address] [place] [address] Cardiovascular Disease 05/14/22 Catherine Cm MD [address] [place] 284535 Cardiovascular Disease 07/21/22 Valery Veronica PA-C 909 [place], [place] 6[address] Physician Atomic Fuel Assembler Dermatology 07/21/22 Brea Quinn APRN POSITION CLASSIFICATION SPECIALIST 500 [place], [place] 0[address]85 Nurse Practitioner Dermatology 09/21/22 Alfonso Renteria MD [address] [facility] [address] [place] [address] Assigned Neuroscience Provider 04/02/23 09/29/24 Lomeli Radha StovallARLENE POSITION CLASSIFICATION SPECIALIST [address] [place], [place] 16[address] Assigned Heart and Vascular Provider 05/28/23 Jelena David OD [address] [facility] [place] [address] MD Ophthalmology 06/15/23 Esha Grimm PA-C [address] [place] [phone] Assigned PCP 07/16/23 Valery Veronica PA-C [address] [place] [address] 004645 Physician Atomic Fuel Assembler Dermatology 09/19/23 Rey Tay MD [address] [place] [address] 979505 Gastroenterology 09/20/23 Rocky Zepeda DO [address] [place] [address] 723935 Physician Gastroenterology 09/20/23 Philip Dumont MD [address] [place] [address] [phone] Physician Ophthalmology 09/22/23 Meredith Carrera PA-C [address] [place] [address] 377905 Assigned Gastroenterology Provider 11/01/23 Neil Kent MD [address] [place] [address] Dermatology 11/02/23 [place] [address] [place] [address] Neurological Surgery 12/26/23 Audrey Waite PA-C 500 [place] [address] Physician Atomic Fuel Assembler Dermatology 02/28/24 Valery Veronica PAUcheC 925360 [place] [address] Physician Atomic Fuel Assembler Dermatology 04/10/24 Herminia Hatch MD [facility]5 [place], [place] 40048[address] Assigned Rheumatology Provider 07/02/24 Jelena David OD [address] [place] [address] [place] [address] Ophthalmology 08/30/24 documented as of this encounter
--- OUTSIDE RECORDS SUMMARY | 2024-10-18 19:28 | XMS_ITS | Encounter Summary ---
Author Organization [facility] Address [address] [place] [address] Care Team Providers Care Hotel Attendant Name Role Phone Diana Desir [facility] Unavailable [phone] Rain GalavizC Unavailable Tavia Wyatt MD Unavailable Erica Farrell APRN GROUND SUPPORT AGENT Unavailable Rich Barrett MD Unavailable [phone] Neil Kent MD Unavailable DesirKendrickDiana Stanislav [facility] Unavailable [phone] Livan Sharif MD Unavailable Catherine Cm MD Unavailable + Valery Veronica-C Unavailable Brea Quinn HOUSE MOVER HELPER GROUND SUPPORT AGENT Unavailable Alfonso Renteria MD Unavailable [phone] Esha GrimmC Primary Care Provider [phone] Radha Lomeli HOUSE MOVER HELPER GROUND SUPPORT AGENT Unavailable Jelena David OD Unavailable Alfa, Esha M PA-C Unavailable [phone] Valery Veronica PA-C Unavailable [phone] Rey Tay MD Unavailable Duane Rocky Unavailable Philip Dumont MD Unavailable [phone] Meredith Carrera PA-C Unavailable Neil Kent MD Unavailable Juan Pablo Emmanuel MD Unavailable [phone] Audrey Waite PA-C Unavailable Valery Veronica PA-C Unavailable [phone] Herminia Hatch MD Unavailable Jelena David OD Unavailable [phone] Reason for Referral * CV Testing (Routine) - Pending Review Specialty Diagnoses / Procedures Referred By Contparviz t Referred To Contact Diagnoses Palpitations Procedures ZIO PATCH MAIL OUT Fabiano Correa NP [address] [place] [address] Phone: tel: fax: Referral ID Status Reason Start Date Expiration Date V isits Requested Visits Authorized [id number] Pending Review 09/10/2024 09/10/2025 1 1 ER V GROOVE Encounter Details Date Type Department Care Team (Late st Contact Info) Description 09/07/2024 [facility] Medical Advice [facility] Heart [address] [place] [address] Fabiano Correa NP [address] [place] [id number] Palpitations (Primary Dx) Social History Tobacco Use [...] Score 1 02/07/2024 [facility] - Occupational Stress Questionnaire [...] exercise at this level? 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 Preliminary findings from the previous monitor look good without any episodes noted. Thank you! Rodrigo Correa APRN, GROUND SUPPORT AGENT ER [facility] * Addendum Note - Bharat Haji RN - 09/07/2024 1:03 AM CSTAddended by: BHARAT HAJI on: 09/10/2024 12:06 PM Modules accepted: Orders ER V [facility] documented in this encounter Plan of Treatment Upcoming Encounters Date Type Department Care Team (Late st Contact Info) Description 10/22/2024 11:00 AM CDT Office Visit [address] [phone] Maru Man PA-C [address] [place] [address] 10/23/2024 PRE VISIT [facility] Neurology [address] [phone] Johnny Penn MD [address] [place] [place] [address] Previsit 10/23/2024 9:30 AM CDT Office Visit [facility] Neurology [facility] - [address], [address] [address] [place] [address] [place] [address] Johnny Penn MD [address] [place] [address]68[address] 10/24/2024 4:00 PM CDT Office Visit [facility] [place] [address] [facility] [address] [place] [phone] FrankieJelena Radha, OD [address] [facility] [place], [place] [address] 10/31/2024 9:15 AM CDT Virtual Visit [facility] Gastroenterology Clinic [address] 4th [place] [phone] Meredith Carrera PA-C [address] [place] [address] 446855 12/20/2024 2:30 PM CDT Office Visit [facility] [address] [place] [address] Esha Grimm PA-C [address] [place] [address] documented as of this encounter Results * ZIO PATCH MAIL OUT (10/09/2024 5:49 AM CDT) Zio Prelim Results Patient had a min HR [...] documented in this encounter Visit Diagnoses Diagnosis Palpitations- Primary Palpitations documented in this encounter Additional Health Concerns Assessment Noted Time PHQ-9 Depression Total Score: 3 02/07/20 24 9:33 AM CDT documented as of this encounter Care Teams Hotel Attendant Relationship Specialty Start Date End Date Esha Grimm PA-C [address] [place] [address] PCP - General Family Medicine 05/04/23 Diana Desir, [facility] [address] [place], [place] 7934[address] Pharmacist Pharmacist 04/17/21 Rain Galaviz PA-C [address] [place] [address] [address] [place] [address] Physician Dimensional Engineer Dermatology 04/28/21 Tavia Wyatt MD [address] [place] [address] [address] [place] [address] [phone] Dermatology 07/14/21 Erica Farrell APRN GROUND SUPPORT AGENT [address] [place] [address] Nurse Practitioner Cardiovascular Disease 09/09/21 Rich Barrett MD [address] [place] [address] Physician Ophthalmology 01/21/22 Neil Kent MD 500 [place] [address] Dermatology 02/24/22 [facility] 3033 [place] [address] Assigned MTM Pharmacist 04/07/22 Livan Sharif MD [address] [place] [address] Cardiovascular Disease 05/14/22 Cathreine Cm MD [address] [place] 011605 Cardiovascular Disease 07/21/22 Valery Veronica PA-C 909 [place], [place] 903015 Physician Dimensional Engineer Dermatology 07/21/22 Brae Quinn APRN GROUND SUPPORT AGENT 500 [place], [place] 986865 Nurse Practitioner Dermatology 09/21/22 Alfonso Renteria MD [address]75 [facility] 200 [place], [place] [address] Assigned Neuroscience Provider 04/02/23 09/29/24 Radha Lomeli, ARLENE GROUND SUPPORT AGENT [address] [place] [address] Assigned Heart and Vascular Provider 05/28/23 [place] [address] [place] [address] [place] [address] Ophthalmology 06/15/23 Esha Grimm PA-C [address] [place] [address] Assigned PCP 07/16/23 Valery Veronica PA-C [address] [place] [address] Physician Dimensional Engineer Dermatology 09/19/23 Rey Tay MD [address] [place] [address] MD Gastroenterology 09/20/23 Rocky Zepeda DO [address] [place] [address] 566835 Physician Gastroenterology 09/20/23 Philip Dumont MD [address] [place] [address] 535035 Physician Ophthalmology 09/22/23 Meredith Carrera PA-C [address] [place] [address] 587835 Assigned Gastroenterology Provider 11/01/23 Neil Kent MD [address] [address] Dermatology 11/02/23 [place] [address] [facility] 903707 Neurological Surgery 12/26/23 Audrey Waite PA-C [address] [place] [address] Physician Dimensional Engineer Dermatology 02/28/24 Valery Veronica PA-C [address] [place] [address] Physician Dimensional Engineer Dermatology 04/10/24 Herminia Hatch MD [facility]5 [place], [place] 38902[address] Assigned Rheumatology Provider 07/02/24 Jelena David OD [address] [facility] [place] [address] Ophthalmology 08/30/24 documented as of this encounter
--- OUTSIDE RECORDS SUMMARY | 2024-10-18 19:28 | XMS_ITS | Encounter Summary ---
Author Organization [facility] [place] Address [address] [place] [address] Care Team Providers Care Biostatistics Teacher Name Role Phone Diana Desir [facility] Unavailable Rain Galaviz PA-C Unavailable Tavia Wyatt MD Unavailable [phone] Erica Farrell APRN SURGICAL SERVICES ASSISTANT Unavailable Rich Barrett MD Unavailable [phone] Neil Kent MD Unavailable Diana Desir [facility] Unavailable Livan Sharif MD Unavailable Catherine Cm MD Unavailable + Valery Veronica PA-C Unavailable Brea Quinn EDGE PLUGGER SURGICAL SERVICES ASSISTANT Unavailable Brea Quinn EDGE PLUGGER SURGICAL SERVICES ASSISTANT Unavailable Jose Francisco Johnson MD Unavailable Alfonso Renteria MD Unavailable [phone] Esha Grimm PA-C Primary Care Provider [phone] Radha Lomeli APRN SURGICAL SERVICES ASSISTANT Unavailable Jelena David OD Unavailable Pao Joseph RN Unavailable Unavailable AlfaJesusEsha M PA-C Unavailable [phone] Valery Veronica PA-C Unavailable Rey Tay MD Unavailable Rocky Zepeda DO Unavailable Philip Dumont MD Unavailable [phone] Meredith Carrera PA-C Unavailable [phone] Neil Kent MD Unavailable Juan Pablo Emmanuel MD Unavailable [phone] Audrey Waite PA-C Unavailable [phone] Valery Veronica PA-C Unavailable [phone] Herminia Hatch MD Unavailable Jelena David OD Unavailable [phone] Juan Pablo Emmanuel MD Unavailable Maru Man PA-C Unavailable [phone] Encounter Details Date Type Department Care Team (Late st Contact Info) Description 09/08/2023 [facility] Medical Advice [facility] Gastroenterology Clinic [address] [address] Mary Kelsey Social History Tobacco [...] PHQ-2 Score 0 06/20/2023 [facility] - Occupational Stress [...] exercise at this level? 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 Gender Identity Female 03/02/2021 5:45 PM CDT Sexual Orientation Straight 02/28/2020 12 :51 AM CDT documented as of this encounter Plan of Treatment Upcoming Encounters Date Type Department Care Team (Late st Contact Info) Description 10/22/2024 11:00 AM CDT Office Visit [address] [phone] Maru Man PA-C [address] [place] [address] 10/23/2024 PRE VISIT [facility] Neurology [facility] - [address], [address] [place] [address] Johnny Penn MD [address] [place] [address] Previsit 10/23/2024 9:30 AM CDT Office Visit [facility] Neurology [facility] [place] [address] [facility], [address] [place] [phone] [place] [address] [place] [address] Johnny Penn MD [address] [place] [address]245 10/24/2024 4:00 PM CDT Office Visit [facility] [address] [facility] [address] [place] [phone] Jelena David, [address] [facility] [place] [address] 10/31/2024 9:15 AM CDT Virtual Visit [facility] Gastroenterology Clinic [address] [phone] Meredith Carrera PA-C [address] [place] [address] 12/20/2024 2:30 PM CDT Office Visit [facility] [address] [place] [address] Esha Grimm PA-C [address] [place] [address] documented as of this encounter Visit Diagnoses Not on filedocumented in this encounter Additional Health Concerns Infection Onset Date Last Indicated Resolved Time Rule Out COVID-19 12/26/2023 12/26/202312/2512/26/2023 9:50 AM CDT Rule Out COVID-19 04/09/2024 04/09/2024 04/10/2024 6:48 PM CDT Rule Out COVID-19 10/04/2024 10/04/2024 10/05/2024 9:42 AM CDT Assessment Noted Time PHQ-9 Depression Total Score: 4 06/20/20 8:40 AM DIVER'S TENDER documented as of this encounter Care Teams Biostatistics Teacher Relationship Specialty Start Date End Date Esha Grimm PA-C [address] [place] [address] PCP - General Family Medicine 05/04/23 Diana Desir, [facility] [address] [place] [address] Pharmacist Pharmacist 04/17/21 Rain Galaviz PA-C [address] [place] [address] [address] [place] [address] Physician Mobile Home Mechanic Dermatology 04/28/21 Tavia Wyatt MD [address] [place] [address] [address] [place] [address] Dermatology 07/14/21 Erica Farrell APRN SURGICAL SERVICES ASSISTANT [address] [place] [address] Nurse Practitioner Cardiovascular Disease 09/09/21 Rich Barrett MD [address] [place] [address] Physician Ophthalmology 01/21/22 Neil Kent MD 500 [place] [address] Dermatology 02/24/22 [facility] 3033 [place] [address] Assigned [place] Pharmacist 04/07/22 Livan Sharif MD [address] 4040900 [place] [address] Cardiovascular Disease 05/14/22 Catherine Cm MD [address] 9292900 [place] [address] Cardiovascular Disease 07/21/22 Valery Veronica, PA-C 909 [place] [address] Physician Mobile Home Mechanic Dermatology 07/21/22 Brea Quinn APRN SURGICAL SERVICES ASSISTANT 500 [place] [address] Nurse Practitioner Dermatology 09/21/22 Brea Quinn APRN SURGICAL SERVICES ASSISTANT [address] [place] [address] Assigned Surgical Provider 10/09/22 05/01/24 [place] [address] [address] Assigned Musculoskeletal Provider 10/09/22 05/01/24 Alfonso Renteria MD 5775 [facility] 200 [place] [address] Assigned Neuroscience Provider 04/02/23 09/29/24 Radha Lomeli APRN SURGICAL SERVICES ASSISTANT [address] [place] [address] Assigned Heart and Vascular Provider 05/28/23 Jelena David, SONJA [address] [facility] [place] [address] Ophthalmology 06/15/23 Pao Joseph, VJ Personal Advocate & Liaison (PAL) Nurse 08/01/23 11/07/23 Esha Grimm PA-C [address] [place] [phone] Assigned PCP 07/16/23 Valery Veronica PA-C [address] [place] [address] 464875 Physician Mobile Home Mechanic Dermatology 09/19/23 Rey Tay MD [address] [place] [address] 688295 Gastroenterology 09/20/23 Rocky Zepeda DO [address] [place] [address] 050845 Physician Gastroenterology 09/20/23 Philip Dumont MD [address] [place] [address] 950425 Physician Ophthalmology 09/22/23 Meredith Carrera PA-C [address] [place] [address] [id number] Assigned Gastroenterology Provider 11/01/23 Neil Kent MD [address] [place] [address] Dermatology 11/02/23 [place] [address] [place] [address] Neurological Surgery 12/26/23 Audrey Waite PA-C [address] [place] [address] Physician Mobile Home Mechanic Dermatology 02/28/24 Valery Veronica PA-C [address] [place] [address] Physician Mobile Home Mechanic Dermatology 04/10/24 Herminia Hatch MD [address] [place] [address] [id number] Assigned Rheumatology Provider 07/02/24 Jelena David OD [address] [place] [address] [place] [address] Ophthalmology 08/30/24 [place] [address] [place] [address] Assigned Neuroscience Provider 09/30/24 Maru Man PA-C [address] [place] [address] Physician Mobile Home Mechanic Dermatology 10/03/24 documented as of this encounter
--- OUTSIDE RECORDS SUMMARY | 2024-10-18 19:28 | XMS_ITS | Encounter Summary ---
Author Organization [facility] Address [address] [place] [address] Care Team Providers Care Porcelain Enamel Sprayer Name Role Phone Diana Desir [facility] Unavailable Rain Galaviz PA-C Unavailable Tavia Wyatt MD Unavailable [phone] Erica Farrell APRN JEWEL FLAT SURFACER Unavailable Rich Barrett MD Unavailable [phone] Neil Kent MD Unavailable Diana Desir [facility] Unavailable Livan Sharif MD Unavailable Catherine Cm MD Unavailable + Valery Veronica PA-C Unavailable Brea Quinn DATABASE COORDINATOR JEWEL FLAT SURFACER Unavailable Brea Quinn DATABASE COORDINATOR JEWEL FLAT SURFACER Unavailable Jose Francisco Johnson MD Unavailable Alfonso Renteria MD Unavailable [phone] Esha Grimm PA-C Primary Care Provider Radha Lomeli APRN JEWEL FLAT SURFACER Unavailable Tommy Davidmao Templetone OD Unavailable [phone] Pao Joseph RN Unavailable Unavailable [facility] PA-C Unavailable [phone] Valery Veronica PA-C Unavailable [phone] Rey Tay MD Unavailable Rocky Zepeda DO Unavailable Philip Dumont MD Unavailable [phone] Meredith Carrera PA-C Unavailable [phone] Neil Kent MD Unavailable Juan Pablo Emmanuel MD Unavailable [phone] Audrey Waite PA-C Unavailable [phone] Valery Veronica PA-C Unavailable [phone] Herminia Hatch MD Unavailable Jelena David OD Unavailable [phone] Juan Pablo Emmanuel MD Unavailable [phone] Maru Man PA-C Unavailable [phone] Encounter Details Date Type Department Care Team (Late st Contact Info) Description 09/20/2023 [facility] [facility] G[facility] [address] [address] Jeffery Vieira, RN Social History [...] Score 0 06/20[facility]2023 [facility] Questionnaire Answer Date [...] exercise at this level? 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 Gender Identity Female 03/02/2021 5:45 PM CDT Sexual Orientation Straight 02/28/2020 12 :51 AM CDT documented as of this encounter Plan of Treatment Upcoming Encounters Date Type Department Care Team (Late st Contact Info) Description 10/22/2024 11:00 AM CDT Office Visit [address] [phone] Maru Man PA-C [address] [address] 10/23/2024 PRE VISIT [facility] Neurology [facility] - [address], [address] [place] [address] IsamarJohnny farnsworth MD [address] [place] [address] Previsit 10/23/2024 9:30 AM CDT Office Visit [facility] Neurology [facility] [address] [facility], [address] [place] [phone] [place] [address] [place] [address] Johnny Penn MD [address] [place] [address] 10/24/2024 4:00 PM CDT Office Visit [facility] [address] [place] [phone] Jelena David, [address] [facility] [place] [address] 10/31/2024 9:15 AM CDT Virtual Visit [facility] Gastroenterology [address] [phone] Meredith Carrera PA-C [address] [place] [address] 12/20/2024 2:30 PM CDT Office Visit [facility] [address] [place] [phone] Esha Grimm PA-C [address] [place] [address] documented as of this encounter Visit Diagnoses Not on filedocumented in this encounter Additional Health Concerns Infection Onset Date Last Indicated Resolved Time Rule Out COVID-19 12/26/2023 12/26/2023 12/26/2023 9:50 AM CDT Rule Out COVID-19 04/09/2024 04/09/2024 04/10/2024 6:48 PM CDT Rule Out COVID-19 10/04/2024 10/04/2024 10/05/2024 9:42 AM CDT Assessment Noted Time PHQ-9 Depression Total Score: 4 06/20/20 8:40 AM BEHAVIORAL SCIENCES INSTRUCTOR documented as of this encounter Care Teams Porcelain Enamel Sprayer Relationship Specialty Start Date End Date sEha Grimm PA-C [address] [place] [address] PCP - General Family Medicine 05/04/23 Diana Desir, [facility] [address] [place] [address] Pharmacist Pharmacist 04/17/21 Rain Galaviz PA-C [address] [place] [address] [address] [place] [address] Man Dermatology 04/28/21 Tavia Wyatt MD [address] [place] [address] [address] [place] [address] Dermatology 07/14/21 Erica Farrell APRN JEWEL FLAT SURFACER [address] [place] [address] Nurse Practitioner Cardiovascular Disease 09/09/21 Rich Barrett MD [address] [place] [address] Physician Ophthalmology 01/21/22 Neil Kent MD 500 [place] [address] Dermatology 02/24/22 [facility] 3033 [place] [address] Assigned [place] Pharmacist 04/07/22 Livan Sharif MD [address] [address] Cardiovascular Disease 05/14/22 Catherine Cm MD [address] 3575[address] Cardiovascular Disease 07/21/22 Valery Veronica, PAUcheC [address] [place] [address] Man Dermatology 07/21/22 Brea Quinn APRN JEWEL FLAT SURFACER 500 [place] [address] Nurse Practitioner Dermatology 09/21/22 Brea Quinn APRN JEWEL FLAT SURFACER [address] [place] [address] Assigned Surgical Provider 10/09/22 05/01/24 [place] [address] [address] Assigned Musculoskeletal Provider 10/09/22 05/01/24 Alfonso Renteria MD [address] [facility] 200 [place] [address] Assigned Neuroscience Provider 04/02/23 09/29/24 Radha Lomeli APRN JEWEL FLAT SURFACER [address] [place] [address] Assigned Heart and Vascular Provider 05/28/23 Jelena David OD [address] [facility] [place] [address] MD Ophthalmology 06/15/23 Pao Joseph, VJ Personal Advocate & Liaison (PAL) Nurse 08/01/23 11/07/23 Esha Grimm PA-C [address] [place] [phone] Assigned PCP 07/16/23 Valery Veronica PA-C [address] [place] [address] Man Dermatology 09/19/23 Rey Tay MD [address] [place] [address] 610515 Gastroenterology 09/20/23 Rocky Zepeda DO [address] [place] [address] 085175 Physician Gastroenterology 09/20/23 Philip Dumont MD [address] [place] [address]995 Physician Ophthalmology 09/22/23 Meredith Carrera PA-C [address] [place] [address] Assigned Gastroenterology Provider 11/01/23 Neil Kent MD [address] [place] [address] MD Dermatology 11/02/23 [place] [address] [place] [address] Neurological Surgery 12/26/23 Audrey Waite PA-C [address] [place] [address] Man Dermatology 02/28/24 Valery Veronica PA-C [address] [place] [address] Man Dermatology 04/10/24 Herminia Hatch MD [address] [place] [address] [id number] Assigned Rheumatology Provider 07/02/24 Jelena David OD [address] [place] [address] [place] [address] Ophthalmology 08/30/24 [place] [address] [place] [address] Assigned Neuroscience Provider 09/30/24 Maru Man PA-C [address] [place] [address] Man Dermatology 10/03/24 documented as of this encounter
--- OUTSIDE RECORDS SUMMARY | 2024-10-18 19:28 | XMS_ITS | Encounter Summary ---
Author Organization [facility] Address [address] [place] [address] Care Team Providers Care Legal Executive Assistant Name Role Phone Lita Oseguera Unavailable Unavailable Marija Edgar APRN DISPUTE SPECIALIST Primary Care Provider + Marija Edgar APRN DISPUTE SPECIALIST Unavailable [phone] Keisha Dotson MD Unavailable Diana Desir [facility] Unavailable Rain Galaviz PA-C Unavailable Tavia Wyatt MD Unavailable Erica Farrell APRN DISPUTE SPECIALIST Unavailable Rich Barrett MD Unavailable [phone] Neil Kent MD Unavailable Roney Story DPM Unavailable Diana Desir [facility] Unavailable Jelena David OD Unavailable Livan Sharif MD Unavailable Livan Sharif MD Unavailable Catherine Cm MD Unavailable + Valery Veronica PA-C Unavailable Catherine Cm MD Unavailable + Johnny Murillo MD Unavailable [phone] Brea Quinn MANAGER APPLICATION DISPUTE SPECIALIST Unavailable [phone] Brea Quinn MANAGER APPLICATION DISPUTE SPECIALIST Unavailable [phone] Jose Francisco Johnson MD Unavailable Livan Sharif MD Unavailable Catherine Cm MD Unavailable + Sydnie Martinez RN Unavailable Unavailable Alfonso Renteria MD Unavailable [phone] Esha Grimm PA-C Primary Care Provider Cheng Todd PA-C Unavailable [phone] Radha Lomeli MANAGER APPLICATION DISPUTE SPECIALIST Unavailable Jelena David OD Unavailable Pao Joseph RN Unavailable Unavailable Esha Grimm PA-C Unavailable [phone] Valery Veronica PA-C Unavailable Rey Tay MD Unavailable Rocky Zepeda DO Unavailable Philip Dumont MD Unavailable Meredith Carrera PA-C Unavailable Neil Kent MD Unavailable Juan Pablo Emmanuel MD Unavailable Audrey Waite PA-C Unavailable Valery Veronica PA-C Unavailable Herminia Hatch MD Unavailable Jelena David OD Unavailable Juan Pablo Emmanuel MD Unavailable Maru Man PA-C Unavailable [phone] Reason for Visit * Reason Onset Date Comments Appointment 06/14/2022 Stress test and monitor on the same day Encounter Details Date Type Department Care Team (Late st Contact Info) Description 06/14/2022 Telephone [facility] Heart [facility] [address] [facility] [address] [place] [phone] Livan Sharif MD [address] [facility] [address] [place] [address] Appointment (Stress [...] How often do you attend yarsani or jain serv ices? Never 09/22/2021 Do [...] Health [facility] Occupat ional [facility] - Occupational Stress Questionnaire Answer [...] a skilled nursing (including now)? No 09/22/2021 [place] Depression Scale Answer Date Recorded [place] Depression Score 5 01/14/2021 Last EPDS Self Harm Result Not on file 01/14 Education Answer Date Recorded What is the highest level of school you have completed or the highest degree you have received? 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 Yes 06/16/2022 12:32 PM SECURITY AND PRIVACY CONSULTANT documented as of this encounter Miscellaneous Notes * Telephone Encounter - Amalia Matute MA - 06/14/2022 9:30 AM CST [facility] Call Center Phone Message May a detailed message be left on voicemail: yes Reason for Call: Other: Pt is needing to reschedule her stress test and ziopatch monitor on the same day. Fridays work best or M-Th at 3:30. Please call pt back to schedule. Thank you Action Taken: Message routed to: Other: Cardiology Travel Screening: Not Applicable Thank you! Specialty Access Center RITY AND PRIVACY CONSULTANT documented in this encounter Plan of Treatment Upcoming Encounters Date Type Department Care Team (Late st Contact Info) Description 10/22/2024 11:00 AM CDT Office Visit [address] [phone] Maru Man PA-C [address] [place] [address] 10/23/2024 PRE VISIT [facility] Neurology [facility] - [address], [address] [place] [phone] Johnny Penn MD [address] [facility] [place] [address] Previsit 10/23/2024 9:30 AM CDT Office Visit [facility] Neurology [facility] - [address], [address] [place] [phone] [place] [address] [place], [place] [address] Johnny Penn MD [address] [place], [place] [address] 10/24/2024 4:00 PM CDT Office Visit [facility] [address] [facility] [address] [place] [phone] Jelena David, [address] [facility] [place] [address] 10/31/2024 9:15 AM CDT Virtual Visit [facility] G[facility]ology [facility] [address] 4th [place] [address] Meredith Carrera PA-C [address] [place] [address] 12/20/2024 2:30 PM CDT Office Visit [address] [place] [phone] Esha Grimm PA-C [address] [place] [address] documented as of this encounter Visit Diagnoses Not on filedocumented in this encounter Additional Health Concerns Infection Onset Date Last Indicated Resolved Time COVID-19 06/09/2022 06/09/2022 06/30/2022 11:4 1 PM SECURITY AND PRIVACY CONSULTANT Rule Out COVID-19 11/10/2022 11/10/2022 11/11/2022 [...] documented as of this encounter Care Teams Legal Executive Assistant Relationship Specialty Start Date End Date Marija Edgar APRN DISPUTE SPECIALIST PCP - General Nurse Practitioner 04/30/20 04/14/23 Esha Grimm PA-C [address] [place] [address] PCP - General Family Medicine 05/04/23 Lita Oseguera Personal Advocate & Liaison (PAL) 02/28/20 03/27/23 Marija Edgar APRN DISPUTE SPECIALIST Assigned PCP 06/08/20 04/29/23 Keisha Dotson MD [address] [place] [address] Assigned Neuroscience Provider 06/04/20 04/01/23 Diana Desir, [facility] [address] [place] [address] Pharmacist Pharmacist 04/17/21 Rain Galaviz PA-C [address] [place] [address] [address] [place] [address] Physician Band Saw Operator Dermatology 04/28/21 Tavia Wyatt MD [address] [place] [address] [address] [facility] [place] [address] Dermatology 07/14/21 Erica Farrell APRN DISPUTE SPECIALIST [address] [place] [address] Nurse Practitioner Cardiovascular Disease 09/09/21 Rich Barrett MD [address] [place] [address] Physician Ophthalmology 01/21/22 Neil Kent MD 500 [place] [address] Dermatology 02/24/22 [place] [address] [facility] [address] [place] [address] Assigned Musculoskeletal Provider 03/20/22 08/13/22 Diana Desir, [facility] [address] [place] [address] Assigned MTM Pharmacist 04/07/22 Jelena David OD [address] [facility] [place] [address] Assigned Surgical Provider 05/08/22 10/08/22 Livan Sharif MD [address] [place], [place] [address] Cardiovascular Disease 05/14/22 Livan Sharif MD [address] [place], [place] [address] Assigned Heart and Vascular Provider 06/12/22 07/23/22 Catherine Cm MD [address] [place], [place] [address] Cardiovascular Disease 07/21/22 Valery Veronica, PAUcheC [address] [place], [place] [address] Physician Band Saw Operator Dermatology 07/21/22 Catherine Cm MD [address] [place], [place] [address] Assigned Heart and Vascular Provider 07/24/22 11/05/22 Johnny Murillo MD [address] [facility] [address] [place] [address] 531594 Assigned Musculoskeletal Provider 08/14/22 10/08/22 Brea Quinn APRN DISPUTE SPECIALIST 500 [place] [address] Nurse Practitioner Dermatology 09/21/22 Brea Quinn APRN DISPUTE SPECIALIST [address] [place] [address] Assigned Surgical Provider 10/09/22 05/01/24 [place] [address] [facility] [address] [place], [place] [address] Assigned Musculoskeletal Provider 10/09/22 05/01/24 Livan Sharif MD [address] [facility] [address] [place] [address] Assigned Heart and Vascular Provider 11/06/22 11/12/22 Catherine Cm MD [address] [facility] [address] [place] [address] Assigned Heart and Vascular Provider 11/13/22 05/27/23 Sydnie [place] RN Personal Advocate & Liaison (PAL) Family Medicine 03/28/23 07/31/23 Alfonso eRnteria MD 5775 [facility] 200 [place], [place] [address] Assigned Neuroscience Provider 04/02/23 09/29/24 Cheng Todd PA-C [address] [place] [address] Assigned PCP 04/30/23 07/15/23 Radha Lomeli, MANAGER APPLICATION DISPUTE SPECIALIST [address] [facility] [address] [place] [address] Assigned Heart and Vascular Provider 05/28/23 Jelena David OD [address] [facility] [place] [address] MD Ophthalmology 06/15/23 Pao Joseph, VJ Personal Advocate & Liaison (PAL) Nurse 08/01/23 11/07/23 Esha Grimm PA-C [address] [place] [phone] Assigned PCP 07/16/23 Valery Veronica PA-C [address] [place] [address] 437895 Physician Band Saw Operator Dermatology 09/19/23 Rey Tay MD [address] [place] [address] Gastroenterology 09/20/23 Rocky Zepeda DO [address] [place] [address] 794525 Physician Gastroenterology 09/20/23 Philip Dumont MD [address] [place] [address]175 Physician Ophthalmology 09/22/23 Meredith Carrera PA-C [address] [place] [address] Assigned Gastroenterology Provider 11/01/23 Neil Kent MD [address] [place] [address] Dermatology 11/02/23 [place] [address] [place] [address] Neurological Surgery 12/26/23 Audrey Waite PA-C 500 [place] [address] Physician Band Saw Operator Dermatology 02/28/24 Valery Veronica PA-C 446812 [address], [place] [address] Physician Band Saw Operator Dermatology 04/10/24 Herminia Hatch MD [address] [place] [address] Assigned Rheumatology Provider 07/02/24 Jelena David OD [address] [place] [address] [place] [address] Ophthalmology 08/30/24 [place] [address] [place] [address] Assigned Neuroscience Provider 09/30/24 Maru Man PA-C [address] [place] [address] Physician Band Saw Operator Dermatology 10/03/24 documented as of this encounter
--- OUTSIDE RECORDS SUMMARY | 2024-10-18 19:29 | XMS_ITS | Encounter Summary ---
Author Organization [place] Address [address] [place] [address] Care Team Providers Care Microsoft Architect Name Role Phone Diana Desir Stanislav [facility] Unavailable Rain Galaviz PA-C Unavailable Tavia Wyatt MD Unavailable Erica Farrell APRN NIGHT GUARD Unavailable Rich Barrett MD Unavailable [phone] Neil [place] MD Unavailable ThangKendrickDiana Stanislav [facility] Unavailable [phone] Livan Sharif MD Unavailable Catherine Cm MD Unavailable + Valery Veronica-C Unavailable Brea Quinn HAIRSPRING TRUING INSPECTOR NIGHT GUARD Unavailable Esha Grimm PA-C Primary Care Provider Radah Lomeli APRN NIGHT GUARD Unavailable Jelena David OD Unavailable Esha Grimm PA-C Unavailable [phone] Valery Veronica PA-C Unavailable [phone] Rey Tay MD Unavailable Rocky Zepeda DO Unavailable Philip Dumont MD Unavailable [phone] Meredith Carrera PA-C Unavailable [phone] Neil [place] MD Unavailable Juan Pablo Emmanuel MD Unavailable Audrey Waite PA-C Unavailable [phone] Valery Veronica PA-C Unavailable Herminia Hatch MD Unavailable Jelena David OD Unavailable Juan Pablo Emmanuel MD Unavailable [phone] Maru Man-C Unavailable [phone] Encounter Details Date Type Department Care Team (Late st Contact Info) Description 10/10/[address] [facility] Medical Advice [facility] Heart [address] [place] [address] Carley Myles RN Social History [...] exercise at this level? 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 Gender Identity Female 03/02/2021 5:45 PM CDT Sexual Orientation Straight 02/28/2020 12 :51 AM CDT documented as of this encounter Plan of Treatment Upcoming Encounters Date Type Department Care Team (Late st Contact Info) Description 10/22/2024 11:00 AM CDT Office Visit [address] [phone] Maru Man PA-C [address] [place] [address] 10/23/2024 PRE VISIT [facility] Neurology [facility] - [address], [address] [place] [address] Johnny Penn MD [address] [place] [address] Previsit 10/23/2024 9:30 AM CDT Office Visit [facility] [place] [address] [facility], [address] [place] [phone] [place] [address] [place] [address] Johnny Penn MD [address] [facility] [place] [id number] 10/24/2024 4:00 PM CDT Office Visit [facility] [address] [place] [phone] Jelena David, [address] [facility] [address] 10/31/2024 9:15 AM CDT Virtual Visit [facility] Gastroenterology [address] [phone] Meredith Carrera PA-C [address] [place] [address] 117635 12/20/2024 2:30 PM CDT Office Visit [facility] [address] [place] [address] Esha Grimm PA-C [id number] [place] [address] documented as of this encounter Visit Diagnoses Not on filedocumented in this encounter Additional Health Concerns Assessment Noted Time PHQ-9 Depression Total Score: 3 02/07/20 24 9:33 AM CDT documented as of this encounter Care Teams Microsoft Architect Relationship Specialty Start Date End Date Esha Grimm PA-C [id number] [place] [phone] PCP - General Family Medicine 05/04/23 Diana Desir, [facility] [address] [place] [address] Pharmacist Pharmacist 04/17/21 Rain Galaviz PA-C [address] [place] [address] [address] [facility] [address] Physician Data Center Technician Dermatology 04/28/21 Tavia Wyatt MD [address] [place] [address] DR [address] [facility] [place] [address] Dermatology 07/14/21 Erica Farrell APRN NIGHT GUARD [address] [place] [address] Nurse Practitioner Cardiovascular Disease 09/09/21 Rich Barrett MD [address] [place] [address] Physician Ophthalmology 01/21/22 Neil Kent MD 500 [place], [place] 518285 Dermatology 02/24/22 Diana Desir, [facility] [address] [place] [address] Assigned MTM Pharmacist 04/07/22 Livan Sharif MD [address] [place] 585[address] Cardiovascular Disease 05/14/22 Catherine Cm MD [address] [place], [place] 621355 Cardiovascular Disease 07/21/22 Valery Veronica PA-C [address] [place] [address] 219255 Physician Data Center Technician Dermatology 07/21/22 Brea Quinn APRN NIGHT GUARD [address] [place] [address] Nurse Practitioner Dermatology 09/21/22 Radha Lomeli APRN NIGHT GUARD [address] [place], [place] 353885 Assigned Heart and Vascular Provider 05/28/23 Jelena David OD [facility] [facility] [place] [address] Ophthalmology 06/15/23 Esha Grimm PA-C [address] [place] [phone] Assigned PCP 07/16/23 Valery Veronica, [facility] [address] [place] [address] 499685 Physician Data Center Technician Dermatology 09/19/23 Rey Tay MD 9 [place], [place] 898285 Gastroenterology 09/20/23 Rocky Zepeda DO [address] [place] [address] Physician Gastroenterology 09/20/23 Philip Dumont MD [address] [place] [address] Physician Ophthalmology 09/22/23 Meredith Carrera PA-C [address] [place] [address] Assigned Gastroenterology Provider 11/01/23 Neil Kent MD [address] [place] [address] MD Dermatology 11/02/23 [place] [address] [facility] [place] [address] Neurological Surgery 12/26/23 Audrey Waite PA-C [address] [place] [address] Physician Data Center Technician Dermatology 02/28/24 Valery Veronica PA-C [id number] [place] [address] Physician Data Center Technician Dermatology 04/10/24 Herminia Hatch MD [address] [place] [address] [id number] Assigned Rheumatology Provider 07/02/24 [place] [address] [place] [address] [place] [address] Ophthalmology 08/30/24 [place] [address] [address] Assigned Neuroscience Provider 09/30/24 Maru Man PA-C [address] [address] Physician Data Center Technician Dermatology 10/03/24 documented as of this encounter
--- OUTSIDE RECORDS SUMMARY | 2024-10-18 19:29 | XMS_ITS | Encounter Summary ---
Author Organization [place] Address [address] [place] [address] Care Team Providers Care Ad Compositor Name Role Phone Diana Desir [facility] Unavailable Rain Galaviz PA-C Unavailable Tavia Wyatt MD Unavailable [phone] Erica Farrell APRN CERTIFIED CONTROL SYSTEMS TECHNICIAN Unavailable Rich Barrett MD Unavailable [phone] Neil [place] MD Unavailable Diana Desir [facility] Unavailable Livan Sharif MD Unavailable Catherine Cm MD Unavailable + Valery Veronica PA-C Unavailable Brea Quinn CONTENT EDITOR CERTIFIED CONTROL SYSTEMS TECHNICIAN Unavailable Brea Quinn CONTENT EDITOR CERTIFIED CONTROL SYSTEMS TECHNICIAN Unavailable Jose Francisco Johnson MD Unavailable Alfonso Renteria MD Unavailable [phone] Esha Grimm PA-C Primary Care Provider Radha Lomeli APRN CERTIFIED CONTROL SYSTEMS TECHNICIAN Unavailable Jelena David OD Unavailable Pao Joseph RN Unavailable Unavailable [facility] PA-C Unavailable [phone] Valery Veronica PA-C Unavailable [phone] Rey Tay MD Unavailable Rocky Zepeda DO Unavailable Philip Dumont MD Unavailable [phone] Meredith Carrera PA-C Unavailable [phone] Neil [place] MD Unavailable Juan Pablo Emmanuel MD Unavailable [phone] Audrey Waite PA-C Unavailable [phone] Valery Veronica PA-C Unavailable Herminia Hatch MD Unavailable Jelena David OD Unavailable Juan Pablo Emmanuel MD Unavailable Maru Man PA-C Unavailable [phone] Encounter Details Date Type Department Care Team (Late st Contact Info) Description 08/31/2023 MyC Medical Advice [facility] [address] [facility] [address] [place] [address] Amalia Reyes, VJ Social History [...] Answer Date Recorded PHQ-2 Score 0 06/20/2023 [facility] - Occupational Stress Questionnaire Answer [...] at this level? 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 Neurology [facility] - [address], [address] [place] [address] Johnny Penn MD [address] [place] [address] Previsit 10/23/2024 9:30 AM CDT Office Visit [facility] Neurology [facility] [address] [facility], [address] [place] [phone] [place] [address] [place] [address] Johnny Penn MD [address] [place] [address] 10/24/2024 4:00 PM CDT Office Visit [facility] [address] [facility] [address] [place] [phone] Jelena David, [address] [facility] [place] [address] 10/31/2024 9:15 AM CDT Virtual Visit [facility] Gastroenterology Clinic [address] [phone] Meredith Carrera PA-C [address] [place] [address] 716765 12/20/2024 2:30 PM CDT Office Visit [facility] [address] [place] [address] Esha Grimm PA-C [address] [place] [address] documented as of this encounter Visit Diagnoses Not on filedocumented in this encounter Additional Health Concerns Infection Onset Date Last Indicated Resolved Time Rule Out COVID-19 12/26/2023 12/26/202312/26/2023 9:50 AM CDT Rule Out COVID-19 04/09/2024 04/09/2024 04/10/2024 6:48 PM CDT Rule Out COVID-19 10/04/2024 10/04/2024 10/05/2024 9:42 AM CDT Assessment Noted Time PHQ-9 Depression Total Score: 4 06/20/20 8:40 AM BOMB SQUAD COMMANDER documented as of this encounter Care Teams Ad Compositor Relationship Specialty Start Date End Date Esha Grimm PA-C [address] [place] [address] PCP - General Family Medicine 05/04/23 Diana Desir, [facility] [address] [place] [address] Pharmacist Pharmacist 04/17/21 Rain Galaviz PA-C [address] [place] [address] [address] [place] [address] Physician Custom Motorcycle Painter Dermatology 04/28/21 Tavia Wyatt MD [address] [place] [address] [address] [place] [address] Dermatology 07/14/21 Erica Farrell APRN CERTIFIED CONTROL SYSTEMS TECHNICIAN [address] [place] [address] Nurse Practitioner Cardiovascular Disease 09/09/21 Rich Barrett MD [address] [place] [address] Physician Ophthalmology 01/21/22 Neil Kent MD 500 [place] [address] Dermatology 02/24/22 Diana Desir, [facility] 3033 [place] [address] Assigned [place] Pharmacist 04/07/22 Livan Sharif MD [address] [place] [address] Cardiovascular Disease 05/14/22 Catherine Cm MD [address] 3898800 [place], [place] 952595 Cardiovascular Disease 07/21/22 Valery Veronica, PA-C 909 [place] [address] Physician Custom Motorcycle Painter Dermatology 07/21/22 Brea Quinn APRN CERTIFIED CONTROL SYSTEMS TECHNICIAN 500 [place] [address] Nurse Practitioner Dermatology 09/21/22 Brea Quinn APRN CERTIFIED CONTROL SYSTEMS TECHNICIAN [address] [place] [address] Assigned Surgical Provider 10/09/22 05/01/24 [place] [address] [address] Assigned Musculoskeletal Provider 10/09/22 05/01/24 Alfonso Renteria MD [address] [facility] 200 [place] [address] Assigned Neuroscience Provider 04/02/23 09/29/24 Radha Lomeli APRN CERTIFIED CONTROL SYSTEMS TECHNICIAN [address] [place] [address] Assigned Heart and Vascular Provider 05/28/23 Jelena David OD [address] [facility] [place] [address] Ophthalmology 06/15/23 Pao Joseph, VJ Personal Advocate & Liaison (PAL) Nurse 08/01/23 11/07/23 Esha Grimm PA-C [address] [place] [phone] Assigned PCP 07/16/23 Valery Veronica PA-C [address] [place] [address] 896085 Physician Custom Motorcycle Painter Dermatology 09/19/23 Rey Tay MD [address] [place] [address] 282325 Gastroenterology 09/20/23 Rocky Zepeda DO [address] [place] [address] 721255 Physician Gastroenterology 09/20/23 Philip Dumont MD [address] [place] [address] 484705 Physician Ophthalmology 09/22/23 Meredith Carrera PA-C [address] [place] [address] Assigned Gastroenterology Provider 11/01/23 Neil Kent MD [address] [place] [address] MD Dermatology 11/02/23 [place] [address] [place] [address] Neurological Surgery 12/26/23 Audrey Waite PA-C [address] [place] [address] Physician Custom Motorcycle Painter Dermatology 02/28/24 Valery Veronica PA-C 295658 [address] [place] [address] Physician Custom Motorcycle Painter Dermatology 04/10/24 Herminia Hatch MD [facility] [place], [place] 98909125 Assigned Rheumatology Provider 07/02/24 Jelena David OD [address] [facility] [place] [address] Ophthalmology 08/30/24 [place] [address] [place] [address] Assigned Neuroscience Provider 09/30/24 Maru Man PA-C [address] [place] [address] Physician Custom Motorcycle Painter Dermatology 10/03/24 documented as of this encounter
--- OUTSIDE RECORDS SUMMARY | 2024-10-18 19:29 | XMS_ITS | Encounter Summary ---
Author Organization [place] Address [address] [place] [address] Care Team Providers Care Master At Arms Name Role Phone Diana Desir Stanislav [facility] Unavailable [phone] Rain Galaviz PA-C Unavailable Tavia Wyatt MD Unavailable Erica Farrell APRN CALENDER OPERATOR Unavailable Rich Barrett MD Unavailable [phone] Neil Kent MD Unavailable ThangKendrickDiana Stanislav [facility] Unavailable [phone] Livan Sharif MD Unavailable Catherine Cm MD Unavailable + Valery Veronica-C Unavailable [phone] Brea Quinn RAMP ATTENDANT CALENDER OPERATOR Unavailable Esha Grimm PA-C Primary Care Provider Radha Lomeli APRN CALENDER OPERATOR Unavailable Jelena David OD Unavailable [phone] Esha Grimm PA-C Unavailable [phone] Valery Veronica PA-C Unavailable Rey Tay MD Unavailable Rocky Zepeda DO Unavailable Philip Dumont MD Unavailable [phone] Meredith Carrera PA-C Unavailable Neil Kent MD Unavailable Juan Pablo Emmanuel MD Unavailable Audrey Waite PA-C Unavailable [phone] Valery Veronica PA-C Unavailable Herminia Hatch MD Unavailable Jelena David OD Unavailable Juan Pablo Emmanuel MD Unavailable [phone] Maru Man-C Unavailable [phone] Encounter Details Date Type Department Care Team (Late st Contact Info) Description 10/11/2024 MyC Medical Advice [address] [address] Diana Desir, [facility] [address] [place], [place] 814806 Social History Tobacco Use Types Packs/Day Years [...] you attend [facility] or [facility]? 1 to 4 [...] 02/07/2024 [facility] [...] exercise at this level? 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 Gender Identity Female 03/02/2021 5:45 PM CDT Sexual Orientation Straight 02/28/2020 12 :51 AM CDT documented as of this encounter Plan of Treatment Upcoming Encounters Date Type Department Care Team (Late st Contact Info) Description 10/22/2024 11:00 AM CDT Office Visit [address] [phone] Maru Man PA-C [address] 829700 10/23/2024 PRE VISIT [facility] Neurology [facility] [place], [address] [place] [address] Johnny Penn MD [address] [facility] [place] [address] Previsit 10/23/2024 9:30 AM CDT Office Visit [facility] Neurology [facility] [address] [facility], [address] [place] [phone] [place] [address] [place] [address] Johnny Penn MD [address] [facility] [place] [address] 10/24/2024 4:00 PM CDT Office Visit [facility] [address] [facility] [address] [place] [phone] Jelena David, [address] [place] [address] 10/31/2024 9:15 AM CDT Virtual Visit [facility] Gastroenterology Clinic [address] [phone] Meredith Carrera PA-C [address] [place] [address] 113405 12/20/2024 2:30 PM CDT Office Visit [facility] [address] [place] [address] Esha Grimm PA-C [address] [place] [phone] documented as of this encounter Visit Diagnoses Not on filedocumented in this encounter Additional Health Concerns Assessment Noted Time PHQ-9 Depression Total Score: 3 02/07/20 24 9:33 AM CDT documented as of this encounter Care Teams Master At Arms Relationship Specialty Start Date End Date Esha Grimm PA-C [address] [place] [address] PCP - General Family Medicine 05/04/23 Diana Desir, [facility] [address] [place] [address] Pharmacist Pharmacist 04/17/21 Rain Galaviz PA-C [address] [place] [address] [address] [place] [address] Physician Temp Recruiter Dermatology 04/28/21 Tavia Wyatt MD [address] [place] [address] [address] [place] [address] Dermatology 07/14/21 Erica Farrell APRN CALENDER OPERATOR [address] [place], [place] [address] Nurse Practitioner Cardiovascular Disease 09/09/21 Rich Barrett MD [address] [place] [address] Physician Ophthalmology 01/21/22 Neil Kent MD 500 [place], [place] 0[address]365 Dermatology 02/24/22 Diana Desir, [facility] [address] [place] [address] Assigned MTM Pharmacist 04/07/22 Livan Sharif MD [address] [place] [address] Cardiovascular Disease 05/14/22 Catherine Cm MD [address] [place] [address] Cardiovascular Disease 07/21/22 Valery Veronica PA-C [address] [place] [address] 087215 Physician Temp Recruiter Dermatology 07/21/22 Brea Quinn APRN CALENDER OPERATOR [address] [place] [address] 531705 Nurse Practitioner Dermatology 09/21/22 Radha Lomeli APRN CALENDER OPERATOR [address] [place] [address] Assigned Heart and Vascular Provider 05/28/23 Jelena David OD [address] [place] [address] [place] [address] Ophthalmology 06/15/23 Esha Grimm PA-C [address] [place] [address] Assigned PCP 07/16/23 Valery Veronica PA-C [address] [place] [address] 025675 Physician Temp Recruiter Dermatology 09/19/23 Rey Tay MD [address] [place] [address] [phone] MD Gastroenterology 09/20/23 Rocky Zepeda DO [address] [place] [address] 082655 Physician Gastroenterology 09/20/23 Philip Dumont MD [address] [place] [address] 249855 Physician Ophthalmology 09/22/23 Meredith Carrera PA-C [address] [place] [address] 100335 Assigned Gastroenterology Provider 11/01/23 Neil Kent MD [address] [place] [address] 024670 MD Dermatology 11/02/23 [place] [address] 517517 Neurological Surgery 12/26/23 Audrey Waite PA-C [address] [place] [address] 239035 Physician Temp Recruiter Dermatology 02/28/24 Valery Veronica PA-C 566953 [address], [place] [address] Physician Temp Recruiter Dermatology 04/10/24 Herminia Hatch MD [facility] [place] [address] Assigned Rheumatology Provider 07/02/24 Jelena David OD [address] [facility] [place] [address] Ophthalmology 08/30/24 [place] [address] [place] [address] Assigned Neuroscience Provider 09/30/24 Maru Man PA-C [address] [place] [address] Physician Temp Recruiter Dermatology 10/03/24 documented as of this encounter
--- OUTSIDE RECORDS SUMMARY | 2024-10-18 19:29 | XMS_ITS | Encounter Summary ---
Author Organization [facility] Address [address] [place] [address] Care Team Providers Care Physician Relations Representative Name Role Phone Diana Desir [facility] Unavailable Rain Galaviz PA-C Unavailable [phone] Tavia Wyatt MD Unavailable [phone] Erica Farrell APRN TOOL MECHANIC Unavailable Rich Barrett MD Unavailable [phone] Neil Kent MD Unavailable Diana Desri [facility] Unavailable Livan Sharif MD Unavailable Catherine Cm MD Unavailable + Valery Veronica PA-C Unavailable Brea Quinn CEMENT FINISHER TOOL MECHANIC Unavailable [phone] Brea Quinn CEMENT FINISHER TOOL MECHANIC Unavailable Jose Francisco Johnson MD Unavailable Alfonso Renteria MD Unavailable [phone] Esha Grimm PA-C Primary Care Provider Radha Lomeli APRN TOOL MECHANIC Unavailable Tommy Davidmao Templetone OD Unavailable Pao Joseph RN Unavailable Unavailable AlfaWicholincoln [place] PA-C Unavailable [phone] Valery Veronica PA-C Unavailable [phone] Rey Tay MD Unavailable Rocky Zepeda DO Unavailable Philip Dumont MD Unavailable [phone] Meredith Carrera PA-C Unavailable [phone] Neil Kent MD Unavailable Juan Pablo Emmanuel MD Unavailable [phone] Audrey Waite PA-C Unavailable [phone] Valery Veronica PA-C Unavailable [phone] Herminia Hatch MD Unavailable Jelena David OD Unavailable Juan Pablo Emmanuel MD Unavailable [phone] Maru Man PA-C Unavailable [phone] Encounter Details Date Type Department Care Team (Late st Contact Info) Description 08/25/2023 [facility] Medical Advice [facility] [address] [address] Marija Polanco, VJ Social History [...] PHQ-2 Score 0 06/20/2023 [facility] - Occupational [...] at this level? 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 [address], [address] [place] [address] Johnny Penn MD [address] [place] [address] Previsit 10/23/2024 9:30 AM CDT Office Visit [facility] Neurology [facility] [address] [facility], [address] [place] [phone] [place] [address] [place] [address] Johnny Penn MD [address] [place] [address] 10/24/2024 4:00 PM CDT Office Visit [facility] [address] [facility] [address] [place] [phone] Jelena David, [address] [facility] [place] [address] 10/31/2024 9:15 AM CDT Virtual Visit [facility] [address] [phone] Meredith Carrera PA-C [address] [place] [address] 12/20/2024 2:30 PM CDT Office Visit [facility] [address] [place] [address] Esha Grimm PA-C [address] [place] [address] documented as of this encounter [...] Total Score: 4 06/20/20 23 8:40 AM LIGHT TECHNICIAN documented as of this encounter Care Teams Physician Relations Representative Relationship Specialty Start Date End Date Esha Grimm PA-C [address] [place] [address] PCP - General Family Medicine 05/04/23 Diana Desir, [facility] [address] [facility] [place] [address] Pharmacist Pharmacist 04/17/21 Rain Galaviz PA-C [address] [place] [address] [address] [facility] [place] [place] [address] Physician Email Producer Dermatology 04/28/21 Tavia Wyatt MD [address] [place] [address] [address] [facility] [place] [place] [address] Dermatology 07/14/21 Erica Farrell APRN TOOL MECHANIC [address] [place] [address] Nurse Practitioner Cardiovascular Disease 09/09/21 Rich Barrett MD [address] [place] [address] Physician Ophthalmology 01/21/22 Neil Kent MD 500 [place] [address] Dermatology 02/24/22 [facility] 3033 [place] [address] Assigned [place] Pharmacist 04/07/22 Livan Sharif MD [address] [place] [address] Cardiovascular Disease 05/14/22 Catherine Cm MD [address] [address] Cardiovascular Disease 07/21/22 Valery Veronica, PA-C 909 [place] [address] Physician Email Producer Dermatology 07/21/22 Brea Quinn APRN TOOL MECHANIC 500 [place] [address] Nurse Practitioner Dermatology 09/21/22 Brea Quinn APRN TOOL MECHANIC [address] [place] [address] Assigned Surgical Provider 10/09/22 05/01/24 [place] [address] [address] Assigned Musculoskeletal Provider 10/09/22 05/01/24 Alfonso Renteria MD [address] [place] [address] Assigned Neuroscience Provider 04/02/23 09/29/24 Radha Lomeli APRN TOOL MECHANIC [address] [place] [address] Assigned Heart and Vascular Provider 05/28/23 Jelena David, SONJA [address] [facility] [place] [place] [address] MD Ophthalmology 06/15/23 Pao Joseph, VJ Personal Advocate & Liaison (PAL) Nurse 08/01/23 11/07/23 Esha Grimm PA-C [address] [place] [phone] Assigned PCP 07/16/23 Valery Veronica PA-C [address] [place] [address] 917425 Physician Email Producer Dermatology 09/19/23 Rey Tay MD [address] [place] [address] 568235 Gastroenterology 09/20/23 Rocky Zepeda DO [address] [place] [address] 450125 Physician Gastroenterology 09/20/23 Philip Dumont MD [address] [place] [address] 055245 Physician Ophthalmology 09/22/23 Meredith Carrera PA-C [address] [place] [address] 605575 Assigned Gastroenterology Provider 11/01/23 Neil Kent MD [address] [place] [address] Dermatology 11/02/23 [place] [address] [place] [address] Neurological Surgery 12/26/23 Audrey Waite PA-C [address] [place] [address] Physician Email Producer Dermatology 02/28/24 Valery Veronica PA-C [address]756 [address] [place] [address] Physician Email Producer Dermatology 04/10/24 Herminia Hatch MD [address] [place] [address] [phone] Assigned Rheumatology Provider 07/02/24 Jelena Davdi OD [address] [place] [address] [place] [address] Ophthalmology 08/30/24 [place] [address] [place] [address] Assigned Neuroscience Provider 09/30/24 Maru Man PA-C [address] [place] [address] Physician Email Producer Dermatology 10/03/24 documented as of this encounter
--- OUTSIDE RECORDS SUMMARY | 2024-10-18 19:29 | XMS_ITS | Encounter Summary ---
Author Organization [facility] Address [address] [place] [address] Care Team Providers Care Lead Fabricator Name Role Phone Diana Desir [facility] Unavailable Rain Galaviz PA-C Unavailable [phone] Tavia Wyatt MD Unavailable [phone] Erica Farrell APRN CLINIC LEAD Unavailable Rich Barrett MD Unavailable [phone] Neil Kent MD Unavailable Diana Desir [facility] Unavailable [phone] Livan Sharif MD Unavailable Catherine Cm MD Unavailable + Valery Veronica PA-C Unavailable [phone] Brea Quinn [facility] Unavailable Brea Quinn [facility] Unavailable [phone] Jose Francisco Johnson MD Unavailable Alfonso Renteria MD Unavailable [phone] Esha Grimm PA-C Primary Care Provider Radha Lomeli APRN CLINIC LEAD Unavailable Tommy Davidmao Templetone OD Unavailable [phone] Pao Joseph RN Unavailable Unavailable AlfaJesusEsha M PA-C Unavailable [phone] Valery Veronica PA-C Unavailable [phone] Rey Tay MD Unavailable Rocky Zepeda DO Unavailable Philip Dumont MD Unavailable Meredith Carrera PA-C Unavailable [phone] Neil Kent MD Unavailable Juan Pablo Emmaneul MD Unavailable [phone] Audrey Waite PA-C Unavailable [phone] Valery Veronica PA-C Unavailable Herminia Hatch MD Unavailable Jelena David OD Unavailable Juan Pablo Emmanuel MD Unavailable Maru Man PA-C Unavailable [phone] Encounter Details Date Type Department Care Team (Late st Contact Info) Description 08/25/2023 [facility] Medical Advice [address] [address] [facility] [address] [place] [address] Social History Tobacco Use Types [...] PHQ-2 Score 0 06/20/2023 [facility] [...] at this level? 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 Gender Identity Female 03/02/2021 5:45 PM CDT Sexual Orientation Straight 02/28/2020 12 :51 AM CDT documented as of this encounter Plan of Treatment Upcoming Encounters Date Type Department Care Team (Late st Contact Info) Description 10/22/2024 11:00 AM CDT Office Visit [facility] [address] [address] Maru Man PA-C [address] [address] 10/23/2024 PRE VISIT [facility] Neurology [address], [address] [place] [phone] Johnny Penn MD [address] [place] [address] Previsit 10/23/2024 9:30 AM CDT Office Visit [facility] Neu[facility] [address] [place] [address], [address] [place] [phone] [place] [address] [place], [place] [address] Johnny Penn MD [address] [address] 10/24/2024 4:00 PM CDT Office Visit [facility] [address] [facility] [address] [place] [phone] Jelena David, [address] [facility] [place] [address] 10/31/2024 9:15 AM CDT Virtual Visit [facility] Gastroenterology [address] [place] [phone] Meredith Carrera PA-C [address] [place] [address] 088585 12/20/2024 2:30 PM CDT Office Visit [facility] [address] [place] [address] Esha Grimm PA-C [address] [place] [address] documented as of this encounter [...] Total Score: 4 06/20/20 23 8:40 AM ACCOUNTS RECEIVABLE ASSISTANT documented as of this encounter Care Teams Lead Fabricator Relationship Specialty Start Date End Date Esha Grimm PA-C [address] [place] [address] PCP - General Family Medicine 05/04/23 Diana Desir, [facility] [address] [place] [address] Pharmacist Pharmacist 04/17/21 Rain Galaviz PA-C [address] [place] [address] [address] [facility] [place] [place] [address] Physician Fast Food Team Member Dermatology 04/28/21 Tavia Wyatt MD [address] [place] [address] [address] [facility] [place] [place] [address] Dermatology 07/14/21 Erica Farrell APRN CLINIC LEAD [address] [place] [address] Nurse Practitioner Cardiovascular Disease 09/09/21 Rich Barrett MD [address] [place] [address] Physician Ophthalmology 01/21/22 Neil Kent MD 500 [place], [place] 349805 Dermatology 02/24/22 Diana Desir, [facility] [address] [place], [place] 211676 Assigned MTM Pharmacist 04/07/22 Livan Sharif MD [address] [place] 807935 Cardiovascular Disease 05/14/22 Catherine Cm MD [address] [place] [address]365 Cardiovascular Disease 07/21/22 Valery Veronica, PAUcheC 909 [place], [place] 724845 Physician Fast Food Team Member Dermatology 07/21/22 Brea Quinn APRN CLINIC LEAD 500 [place] [address] Nurse Practitioner Dermatology 09/21/22 Brea Quinn APRN CLINIC LEAD [facility] 641922 Assigned Surgical Provider 10/09/22 05/01/24 [place] [address] [place] [address] Assigned Musculoskeletal Provider 10/09/22 05/01/24 Alfonso Renteria MD [address] [facility] [address] [place] [address] Assigned Neuroscience Provider 04/02/23 09/29/24 Radha Lomeli APRN CLINIC LEAD [address] [facility] [address] [place], [place] 900465 Assigned Heart and Vascular Provider 05/28/23 Jelena David OD [address] [facility] [place] [address] Ophthalmology 06/15/23 Pao Joseph, VJ Personal Advocate & Liaison (PAL) Nurse 08/01/23 11/07/23 Esha Grimm PA-C [address] [place] [address] Assigned PCP 07/16/23 Valery Veronica PA-C [address] [place] [address] 183905 Physician Fast Food Team Member Dermatology 09/19/23 Rey Tay MD [address] [place] [address] 476765 Gastroenterology 09/20/23 Rocky Zepeda DO [address] [place] [address] 209335 Physician Gastroenterology 09/20/23 Philip Dumont MD [address] [place] [address] 509925 Physician Ophthalmology 09/22/23 Meredith Carrera PA-C 909 [place] [address] Assigned Gastroenterology Provider 11/01/23 Neil Kent MD [address] [place] [address] Dermatology 11/02/23 [place] [address] [place] [address] 192087 Neurological Surgery 12/26/23 Audrey [place] PA-C 500 [place] [address] Physician Fast Food Team Member Dermatology 02/28/24 Valery Veronica PA-C 622573 [place], [place] 717589 Physician Fast Food Team Member Dermatology 04/10/24 Herminia Hatch MD [address] [place] [address] [phone] Assigned Rheumatology Provider 07/02/24 Jelena David OD [address] [place] [address] [place] [address] Ophthalmology 08/30/24 [place] [address] [place] [address] Assigned Neuroscience Provider 09/30/24 Maru Man PA-C [address] [place] [address] Physician Fast Food Team Member Dermatology 10/03/24 documented as of this encounter
--- OUTSIDE RECORDS SUMMARY | 2024-10-18 19:29 | XMS_ITS | Encounter Summary ---
Author Organization [facility] Address [address] [place] [address] Care Team Providers Care Assistant Education Director Name Role Phone Diana Deisr Stanislav [facility] Unavailable Rain Galaviz PA-C Unavailable Tavia Wyatt MD Unavailable Erica Farrell APRN V BELT FINISHER Unavailable Rich Barrett MD Unavailable [phone] Neil Kent MD Unavailable ThangKendrickDiana Stanislav [facility] Unavailable [phone] Livan Sharif MD Unavailable Catherine Cm MD Unavailable + Valery Veronica-C Unavailable Brea Quinn REAL ESTATE FIRM MANAGER V BELT FINISHER Unavailable Esha Grimm PA-C Primary Care Provider Radha Lomeli APRN V BELT FINISHER Unavailable Jelena David OD Unavailable Esha Grimm PA-C Unavailable [phone] Valery Veronica PA-C Unavailable Rey Tay MD Unavailable Duane Rockyanne [facility] Unavailable Philip Dumont MD Unavailable [phone] Meredith Carrera PA-C Unavailable [phone] Neil Kent MD Unavailable Juan Pablo Emmanuel MD Unavailable [phone] Audrey Waite PA-C Unavailable [phone] Valery Veronica-C Unavailable [phone] Herminia Hatch MD Unavailable Jelena David OD Unavailable [phone] Juan Pablo Emmanuel MD Unavailable [phone] Maru ManC Unavailable [phone] Encounter Details Date Type Department Care Team (Latest Contact Info) Description 10/04/2024 Travel Social History Tobacco Use Types Packs/Day [...] exercise at this level? 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 Neurology [address] [address] Johnny Penn MD [address] [facility] [place] [address] Previsit 10/23/2024 9:30 AM CDT Office Visit [facility] Neurology [address], [address] [address] [place] [address] [place], [place] [address] Johnny Penn MD [address] [place] 683745 10/24/2024 4:00 PM CDT Office Visit [facility] [address] [facility] [address] [place] [phone] Jelena David, [address] [facility] [place] [address] 10/31/2024 9:15 AM CDT Virtual Visit [facility] Gastroenterology [address]th [place] [phone] Meredith Carrera PA-C [address] [place] [address] 12/20/2024 2:30 PM CDT Office Visit [facility] [address] [place] [address] Esha Grimm PA-C [address] [place] [address] documented as of this encounter Visit Diagnoses Not on filedocumented in this encounter Additional Health Concerns Infection Onset Date Last Indicated Resolved Time Rule Out COVID-19 10/04/2024 10/04/2024 10/05/2024 9:42 AM CDT Assessment Noted Time PHQ-9 Depression Total Score: 3 02/07/20 9:33 AM CDT documented as of this encounter Care Teams Assistant Education Director Relationship Specialty Start Date End Date Esha Grimm PA-C [address] [place] [address] PCP - General Family Medicine 05/04/23 Diana Desir, [facility] 3033 [place] [address] Pharmacist Pharmacist 04/17/21 Rain Galaviz PA-C [address] [place] [address] [address] [place] [address] Physician Information Systems Project Manager Dermatology 04/28/21 Tavia Wyatt MD [address] [place] [address] [place] [address] Dermatology 07/14/21 Erica Farrell APRN V BELT FINISHER [address] [place] [address] Nurse Practitioner Cardiovascular Disease 09/09/21 Rich Barrett MD [address] [place] [address] Physician Ophthalmology 01/21/22 Neil Kent MD 500 [place], [place] 603045 Dermatology 02/24/22 Diana Desir, [facility] [address] [place] [address] Assigned MTM Pharmacist 04/07/22 Livan Sharif MD [address] [facility] [address] [place] 798055 Cardiovascular Disease 05/14/22 Catherine Cm MD [address] [place], [place] 0[address] Cardiovascular Disease 07/21/22 Valery Veronica PA-C [address] [place] [address] 158735 Physician Information Systems Project Manager Dermatology 07/21/22 Brea Quinn, REAL ESTATE FIRM MANAGER V BELT FINISHER [address] [place] [address] [phone] Nurse Practitioner Dermatology 09/21/22 Radha Lomeli, ARLENE V BELT FINISHER [address] [place], [place] 961875 Assigned Heart and Vascular Provider 05/28/23 Jelena David OD [address] [facility] [place] [address] Ophthalmology 06/15/23 Esha Grimm PA-C [address] [place] [address] Assigned PCP 07/16/23 Valery Veronica, PALOM[place] [address] [place] [address] 050585 Physician Information Systems Project Manager Dermatology 09/19/23 Rey Tay MD 9 [place], [place] 6[address]305 Gastroenterology 09/20/23 Rocky Zepeda DO [address] [place] [address] Physician Gastroenterology 09/20/23 Philip Dumont MD [address] [place] [address] Physician Ophthalmology 09/22/23 Meredith Carrera PA-C [address] [place] [address] Assigned Gastroenterology Provider 11/01/23 Neil Kent MD [address] [place] [address] 416370 MD Dermatology 11/02/23 [place] [address] [place] [facility] [place] [address] Neurological Surgery 12/26/23 Audrey Waite PA-C [address] [place] [address] Physician Information Systems Project Manager Dermatology 02/28/24 Valery Veronica PA-C [id number] [address] [place] [address] Physician Information Systems Project Manager Dermatology 04/10/24 Herminia Hatch MD [address] [place] [address] [id number] Assigned Rheumatology Provider 07/02/24 Jelena David OD [address] [place] [address] [place] [address] Ophthalmology 08/30/24 [place] [address] [place] [address] [address] Assigned Neuroscience Provider 09/30/24 Maru Man PA-C [address] [place] [address] Physician Information Systems Project Manager Dermatology 10/03/24 documented as of this encounter
--- OUTSIDE RECORDS SUMMARY | 2024-10-18 19:29 | XMS_ITS | Encounter Summary ---
Author Organization [facility] Address [address] [place] [address] Care Team Providers Care Human Resources Supervisor Name Role Phone Diana Desir Stanislav [facility] Unavailable Rain Galaviz PA-C Unavailable Tavia Wyatt MD Unavailable Erica Farrell APRN PATIENT SCHEDULER Unavailable Rich Barrett MD Unavailable [phone] Neil Kent MD Unavailable ThangKendrickDiana Stanislav [facility] Unavailable [phone] Livan Sharif MD Unavailable Catherine Cm MD Unavailable + Valery Veronica-C Unavailable Brea Quinn [employer]ED [employer]N MANAGER PRODUCTION PATIENT SCHEDULER Unavailable Esha Grimm PA-C Primary Care Provider Radha Lomeli APRN PATIENT SCHEDULER Unavailable Jelena David OD Unavailable [phone] Esha Grimm PA-C Unavailable [phone] Valery Veronica PA-C Unavailable [phone] Rey Tay MD Unavailable Duane Rocky Unavailable Philip Dumont MD Unavailable [phone] Meredith Carrera-C Unavailable [phone] Neil Kent MD Unavailable Juan Pablo Emmanuel MD Unavailable Audrey Waite-C Unavailable [phone] Valery Veronica-C Unavailable Herminia Hatch MD Unavailable Jelena David OD Unavailable Juan Pablo Emmanuel MD Unavailable [phone] Maru ManC Unavailable [phone] Reason for Visit * Reason Comments Medication Refill Encounter Details Date Type Department Care Team (Late st Contact Info) Description 10/17/[address] [address] Esha Grimm PA-C [id number] [place] [phone] Medication Refill Social History Tobacco Use [...] 02/07/2024 [facility] - Occupational Stress Questionnaire Answer [...] exercise at this level? 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 Gender Identity Female 03/02/2021 5:45 PM CDT Sexual Orientation Straight 02/28/2020 12 :51 AM CDT documented as of this encounter Plan of Treatment Upcoming Encounters Date Type Department Care Team (Late st Contact Info) Description 10/22/2024 11:00 AM CDT Office Visit [facility] [address] [phone] Maru Man PA-C [address] [address] 10/23/2024 PRE VISIT [facility] Neurology [facility] - [address], [address] [place] [address] Johnny Penn, MD [address] [place] [address] Previsit 10/23/2024 9:30 AM CDT Office Visit [facility] [place] [address] [facility], [address] [place] [phone] [place] [address] [place] [address] Johnny Penn MD [address] [place] [id number] 10/24/2024 4:00 PM CDT Office Visit [facility] [address] [facility] [address] [place] [phone] Jelena David, [address] [facility] [place] [address] 10/31/2024 9:15 AM CDT Virtual Visit [facility] [address] [phone] Meredith Carrera PA-C [address] [place] [address] 12/20/2024 2:30 PM CDT Office Visit [facility] [id number] [place] [phone] Esha Grimm PA-C [id number] [place] [phone] documented as of this encounter Visit Diagnoses Diagnosis Anxiety Anxiety state, unspecified documented in this encounter Additional Health Concerns Assessment Noted Time PHQ-9 Depression Total Score: 3 02/07/20 24 9:33 AM CDT documented as of this encounter Care Teams Human Resources Supervisor Relationship Specialty Start Date End Date Esha Grimm PA-C [address] [place] [address] PCP - General Family Medicine 05/04/23 Diana Desir, [facility] [place], [place] 472[address] Pharmacist Pharmacist 04/17/21 Rain Galaviz PA-C [address] [place] [address] [address] [facility] [place] [address] Physician International Sales Manager Dermatology 04/28/21 Tavia Wyatt MD [address] [place] [address] [address] [facility] [address] Dermatology 07/14/21 Erica Farrell APRN PATIENT SCHEDULER [address] [place] [address] Nurse Practitioner Cardiovascular Disease 09/09/21 Rich Barrett MD [address] [place] [address] Physician Ophthalmology 01/21/22 Neil Kent MD [address] [place], [place] 023175 Dermatology 02/24/22 Diana Desir, [facility] [place] [address] Assigned MTM Pharmacist 04/07/22 Livan Sharif MD [address] [address] [place] [address] Cardiovascular Disease 05/14/22 Catherine Cm MD [address] [address] [place] 825895 Cardiovascular Disease 07/21/22 Valery Veronica PA-C [address] [place] [address] 105055 Physician International Sales Manager Dermatology 07/21/22 Brea Quinn APRN PATIENT SCHEDULER [address] [place] [address] [phone] Nurse Practitioner Dermatology 09/21/22 Radha Lomeli APRN PATIENT SCHEDULER [address] [place] 428875 Assigned Heart and Vascular Provider 05/28/23 Jelena David OD [facility] [facility] [address] Ophthalmology 06/15/23 Esha Grimm PA-C [address] [place] [phone] Assigned PCP 07/16/23 Valery Veronica PA-C [address] [place] [address] 805755 Physician International Sales Manager Dermatology 09/19/23 Rey Tay MD [address] [place] [address] Gastroenterology 09/20/23 Rocky Zepeda DO [address] [place] [address] Physician Gastroenterology 09/20/23 Philip Dumont MD [address] [place] [address] Physician Ophthalmology 09/22/23 Meredith Carrera PA-C [address] [place] [address] 274295 Assigned Gastroenterology Provider 11/01/23 Neil Kent MD [address] [place] [address] 857660 Dermatology 11/02/23 [place] [address] 522[address] Neurological Surgery 12/26/23 Audrey Waite PA-C [address] [place] [address] Physician International Sales Manager Dermatology 02/28/24 Valery Veronica PA-C 167907 [place] [address] Physician International Sales Manager Dermatology 04/10/24 Herminia Hatch MD [address] [place] [address] Assigned Rheumatology Provider 07/02/24 Jelena David OD [address] [facility] [place] [address] Ophthalmology 08/30/24 [place] [address] [address] [place] [address] Assigned Neuroscience Provider 09/30/24 Maru Man PA-C [address] [place] [address] Physician International Sales Manager Dermatology 10/03/24 documented as of this encounter
--- OUTSIDE RECORDS SUMMARY | 2024-10-18 19:29 | XMS_ITS | Encounter Summary ---
Author Organization [facility] Address [address] [place] [address] Care Team Providers Care Mower Operator Name Role Phone Diana Desir Stanislav [facility] Unavailable Rain Galaviz PA-C Unavailable Tavia Wyatt MD Unavailable Erica Farrell APRN SUPERVISOR WASH HOUSE Unavailable Rich Barrett MD Unavailable [phone] Neil [place] MD Unavailable ThangKendrickDiana Stanislav [facility] Unavailable [phone] Livan Sharif MD Unavailable Catherine Cm MD Unavailable + Valery Veronica-C Unavailable Brea Quinn ASSEMBLER GARMENT FORM SUPERVISOR WASH HOUSE Unavailable Esha Grimm PA-C Primary Care Provider [phone] Radha Lomeli APRN SUPERVISOR WASH HOUSE Unavailable Jelena David OD Unavailable Esha Grimm PA-C Unavailable [phone] Valery Veronica PA-C Unavailable [phone] Rey Tay MD Unavailable ZepedaRocky Unavailable Philip Dumont MD Unavailable Meredith Carrera PA-C Unavailable [phone] Neil [place] MD Unavailable Juan Pablo Emmanuel MD Unavailable [phone] Audrey Waite PA-C Unavailable Valery Veronica PA-C Unavailable [phone] Herminia Hatch MD Unavailable Jelena David OD Unavailable Juan Pablo Emmanuel MD Unavailable [phone] Maru Man PA-C Unavailable [phone] Reason for Visit * Reason Onset Date Comments Call Back 10/09/2024 Heart Monitor Encounter Details Date Type Department Care Team (Late st Contact Info) Description 10/09/2024 Telephone [facility] [address] [facility] [address] [place] [address] Livan Sharif MD [address] [facility] [address] [place] [address] Call Back (Heart Monitor) Social History Tobacco Use Types Packs/Day Years [...] Score 1 02/07/2024 [facility] - Occupational [...] exercise at this level? 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 Carley Medina [facility] * Telephone Encounter - Fabiano Correa NP - 10/10/2024 4:21 PM CDT Thank you for the update. Please let Kim know that her most recent Zio patch monitor results looked reassuring with no concerning arrhythmias. She has worn a number of monitors over the past few years which have looked good with no recurrent episodes of SVT following her ablation or other concerning rhythm issues to explain her symptoms, which is good news. If she would like to schedule follow-up with Dr. Sharif to discuss further we can certainly offer. Thanks! Rodrigo Correa APRN, SUPERVISOR WASH HOUSE * Telephone Encounter - Mary Stapleton - 10/09/2024 1:57 PM CDT [facility] Call [facility] Phone Message May a detailed message be left on voicemail: yes Reason for Call: Other: Heart Monitor did not catch any data, so she would like to do another one maybe a different kind that doesn't bother her skin so much. Most of her symptoms come while she is sleeping and when she wakes up. The zio patch causes blisters when she wears it. Pt would like to speak w/Dr. Sharif instead of one of the nurses as she is not feeling heard. Action Taken: Message routed to: [facility] cardio Travel Screening: Not Applicable Thank you! [facility] Date of Service: documented in this encounter Plan of Treatment Upcoming Encounters Date Type Department Care Team (Late st Contact Info) Description 10/22/2024 11:00 AM CDT Office Visit [address] [address] Maru Man PA-C [address] [place] [address] 520730 10/23/2024 PRE VISIT [facility] Neurology [facility] - [address], [address] [place] [address] Johnny Penn MD [address] [facility] [place] [address] Previsit 10/23/2024 9:30 AM CDT Office Visit [facility] Neu[facility] [place] [address] [facility], [address] [place] [phone] [place] [address] [address] [place] [id number] Johnny Penn MD [address] [facility] [place] [address] 10/24/2024 4:00 PM CDT Office Visit [facility] [address] [facility] [address] [place] [phone] Jelena David, [address] [facility] [place] [address] 10/31/2024 9:15 AM CDT Virtual Visit [facility] Gastro[facility]ology Clinic [address] [place] [phone] Meredith Carrera PA-C [address] [place] [address] 12/20/2024 2:30 PM CDT Office Visit [facility] [address] [place] [address] Esha Grimm PA-C [address] [place] [address] documented as of this encounter Visit Diagnoses Not on filedocumented in this encounter Additional Health Concerns Assessment Noted Time PHQ-9 Depression Total Score: 3 02/07/20 24 9:33 AM CDT documented as of this encounter Care Teams Mower Operator Relationship Specialty Start Date End Date Esha Grimm PA-C [id number] [place] [phone] PCP - General Family Medicine 05/04/23 Diana Desir, [facility] [address] [place] [address] Pharmacist Pharmacist 04/17/21 Rain Galaviz PA-C [address] [place] [address] [address] [facility] [place] [address] Physician Hand Filer Balance Wheel Dermatology 04/28/21 Tavia Wyatt MD [address] [place] [address] [place] [address] Dermatology 07/14/21 Erica Farrell APRN SUPERVISOR WASH HOUSE [address] [place] [address] Nurse Practitioner Cardiovascular Disease 09/09/21 Rich Barrett MD [address] [place] [address] Physician Ophthalmology 01/21/22 Neil Kent MD 500 [place] [address] Dermatology 02/24/22 Diana Desir, [facility] [address] [place] [address] Assigned MTM Pharmacist 04/07/22 Livan Sharif MD [address] [place] 855165 Cardiovascular Disease 05/14/22 Catherine Cm MD [address] [place] 37[address] Cardiovascular Disease 07/21/22 Valery Veronica PA-C [address] [place] [address] Physician Hand Filer Balance Wheel Dermatology 07/21/22 Brea Quinn APRN SUPERVISOR WASH HOUSE [address] [place] [address] 946705 Nurse Practitioner Dermatology 09/21/22 Radha Lomeli APRN SUPERVISOR WASH HOUSE [address] [place] [address] Assigned Heart and Vascular Provider 05/28/23 Jelena David OD [facility] [facility] [address] [place] [id number] Ophthalmology 06/15/23 Esha Grimm PA-C [address] [place] [phone] Assigned PCP 07/16/23 Valery Veronica PA-C [address] [place] [address] 437085 Physician Hand Filer Balance Wheel Dermatology 09/19/23 Rey Tay MD [address] [place] [address] 067225 Gastroenterology 09/20/23 Rocky Zepeda DO [address] [place] [address] Physician Gastroenterology 09/20/23 Philip Dumont MD [address] [place] [address] Physician Ophthalmology 09/22/23 Meredith Carrera PA-C [address] [place] [address] Assigned Gastroenterology Provider 11/01/23 Neil Kent MD [address] [place] [address] MD Dermatology 11/02/23 Juan [place] [id number] [place] [address] [address] Neurological Surgery 12/26/23 Audrey Waite PA-C [address] [place] [address] Physician Hand Filer Balance Wheel Dermatology 02/28/24 Valery Veronica PA-C 0[address]497 [address] [place] [address] Physician Hand Filer Balance Wheel Dermatology 04/10/24 Herminia Hatch MD [address] [place] [address] [id number] Assigned Rheumatology Provider 07/02/24 [place] [address] [place] [address] [place] [address] Ophthalmology 08/30/24 [place] [address] 233447 Assigned Neuroscience Provider 09/30/24 Maru Man PA-C [address] [place] [address] 657640 Physician Hand Filer Balance Wheel Dermatology 10/03/24 documented as of this encounter
--- OUTSIDE RECORDS SUMMARY | 2024-10-18 19:29 | XMS_ITS | Encounter Summary ---
Author Organization [facility] Address [address] [place] [address] Care Team Providers Care Exhibit Display Representative Name Role Phone Diana Desir Stanislav [facility] Unavailable [phone] Rain Galaviz PA-C Unavailable [phone] Tavia Wyatt MD Unavailable Erica Farrell APRN TELETYPE ADJUSTER Unavailable Rich Barrett MD Unavailable [phone] Neil Kent MD Unavailable ThangKendrickDiana Stanislav [facility] Unavailable [phone] Livan Sharif MD Unavailable Catherine Cm MD Unavailable + Valery Veronica-C Unavailable Brea Quinn BLOOD TESTER FOWL TELETYPE ADJUSTER Unavailable Esha Grimm PA-C Primary Care Provider Radha Lomeli APRN TELETYPE ADJUSTER Unavailable Jelena David OD Unavailable Esha Grimm PA-C Unavailable [phone] Valery Veronica PA-C Unavailable Rey Tay MD Unavailable ZepedaRocky woodard Unavailable Philip Dumont MD Unavailable Meredith Carrera-C Unavailable [phone] Neil Kent MD Unavailable Juan Pablo Emmanuel MD Unavailable Audrey Waite-C Unavailable [phone] Valery Veronica-C Unavailable Herminia Hatch MD Unavailable Jelena David OD Unavailable Juan Pablo Emmanuel MD Unavailable Maru ManC Unavailable [phone] Reason for Visit * Reason Comments Urgent Care Sore throat x 1 day ago- didn't feel sick, migraine started yesterday- body aches, chills, tender sore throat white spots in the back of throat- maybe feverish didn't check temp. Ibuprofen and tylenol taken. Encounter Details Date Type Department Care Team (Late st Contact Info) Description 10/04/2024 10:00 AM CDT Office Visit [facility] Urgent Care [place] [address] [place] [address] Audrey Díaz PA-C Throat pain (Primary Dx) Social History Tobacco Use [...] 1 02/07/2024 [facility] - Occupational [...] exercise at this level? 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 Gender Identity Female 03/02/2021 5:45 PM CDT Sexual Orientation Straight 02/28/2020 12 :51 AM CDT documented as of this encounter Last Filed Vital Signs Vital Sign Reading Time Taken Comments Blood Pressure 108/60 10/04/2024 10:04 AM CDT Pulse 72 10/04/2024 10:04 AM CDT Temperature 36.9 C (98.5 F) 10/04/2024 10:04 AM CDT Respiratory Rate 18 10/04/2024 10:04 AM CDT Oxygen Saturation 100% 10/04/2024 10:04 AM CDT Inhaled Oxygen Concentration - - Weight 93 kg (205 lb) 10/04/2024 10:04 AM CDT Height - - Body Mass Index 33.09 08/27/2024 8:38 PM AUTOMATED 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 Throat pain R07.0 Streptococcus A Rapid Screen w/Reflex to PCR - Clinic Collect Group A Streptococcus PCR Throat Swab Streptococcus A Rapid Screen w/Reflex to PCR - Clinic Collect COVID-19 Virus (Coronavirus) by PCR Nose Influenza A & B Antigen Plan/Clinical Decision Making: Patient presents with acute ST, body aches, chills. Flu- negative, Strep-negative, PCR pending. Rest, fluids, Tylenol as needed. Covid pending. Return if symptoms worsen or fail to improve, for in 5-7 days. At the end of the encounter, I discussed results, diagnosis, medications. Discussed red flags for immediate return to clinic/ER, as well as indications for follow up if no improvement. Patient understood and agreed to plan. Patient was stable for discharge. Audrey Díaz PA-C on 10/04/2024 at 10:21 AM Subjective: HPI: Kim is a 24 year old female who presents to clinic today for the following health issues: Chief Complaint Patient presents with Urgent Care Sore throat x 1 day ago- didn't feel sick, migraine started yesterday- body aches, chills, tender sore throat white spots in the back of throat- maybe feverish didn't check temp. Ibuprofen and tylenol taken. HPI Woke up with ST, had migraine yesterday. Chills body aches then started. Raw ST. Review of Systems Constitutional: Positive for chills. HENT: Positive for sore throat. Neurological: Positive for headaches. 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) Paroxysmal supraventricular tachycardia SVT (supraventricular tachycardia) Other ventricular tachycardia (H) Past Medical History: Diagnosis Date Anxiety Chronic kidney disease stones, history of infections Depressive disorder Gastroesophageal reflux disease Psoriasis Seizure (H) 05/02/2019 no seizure since approx 2018 SVT (supraventricular tachycardia) Social History Tobacco Use Smoking status: Former Current packs/day: 0.00 Average packs/day: 1 pack/day for 4.0 years (4.0 ttl pk-yrs) Types: Cigarettes, Other Quit date: 12/07/2019 Years since quittin.8 Passive exposure: Past Smokeless tobacco: Never Tobacco comments: 1 year 4 months tobacco free Substance Use Topics Alcohol use: Not Currently Comment: social Objective: Vitals: 10/04/24 1004 BP: 108/60 Pulse: 72 Resp: 18 Temp: 98.5 ??F (36.9 ??C) SpO2: 100% Weight: 93 kg (205 lb) Physical Exam EXAM: Pleasant, alert, appropriate appearance. NAD. Head Exam: Normocephalic, atraumatic. Eye Exam: non icteric/injection. Ear Exam: TMs hassan without bulging. Normal canals. Normal pinna. Nose Exam: Normal external nose. OroPharynx Exam: Moist mucous membranes. mild erythema, pharynx without exudate, mild hypertrophy. Neck/Thyroid Exam: No LAD. Chest/Respiratory Exam: CTAB. Cardiovascular Exam: RRR. No murmur or rubs. Skin: multiple scaly patches on back psoriasis. Results: Results for orders placed or performed in visit on 10/04/24 Streptococcus A Rapid Screen w/Reflex to PCR - Clinic Collect Status: Normal Specimen: Throat; Swab Result Value Ref Range Group A Strep antigen Negative Negative Influenza A & B Antigen Status: Normal Specimen: Nose; Swab Result Value Ref Range Influenza A antigen Negative Negative Influenza B antigen Negative Negative Narrative Test results must be correlated with clinical data. If necessary, results should be confirmed by a molecular assay or viral culture. documented in this encounter Plan of Treatment Upcoming Encounters Date Type Department Care Team (Late st Contact Info) Description 10/22/2024 11:00 AM CDT Office Visit [facility] [address] [phone] Maru Man PA-C [address] [place] [address] 10/23/2024 PRE VISIT [facility] Neurology [facility] [address] [facility], [address] [place] [address] Johnny Penn MD [address] [place] [address] Previsit 10/23/2024 9:30 AM CDT Office Visit [facility] Neurology [facility] [address] [facility] [address], [address] [place] [address] [place] [address] [place] [phone] Johnny Penn MD [address] [place] [address] 10/24/2024 4:00 PM CDT Office Visit [facility] [address] [place] [address] Jelena David, [address] [facility] [place] [address] 10/31/2024 9:15 AM CDT Virtual Visit [facility] G[facility]ology [facility] [address] [phone] Meredith Carrera PA-C [address] [place], [place] [phone] 12/20/2024 2:30 PM CDT Office Visit [facility] [address] [place] [address] Esha Grimm PA-C [address] [place] [address] documented as of this encounter Procedures Procedure Name Priority Date/Time Associated Diagnosis Comments COVID-19 VIRUS (CORONAVIRUS) BY PCR Routine 10/04/2024 10:31 AM CDT Throat pain INFLUENZA A/B ANTIGEN STAT 10/04/2024 10:31 AM CDT Throat pain STREPTOCOCCUS A RAPID SCREEN W REFELX TO PCR Routine 10/04/2024 10:08 AM CDT Throat pain GROUP A STREPTOCOCCUS PCR THROAT SWAB Routine 10/04/2024 10:08 AM CDT Throat pain documented in this encounter Results * Influenza A & B Antigen (10/04/2024 10:31 AM CDT) Influenza A antigen Negative Negative 10/04/2024 10:57 AM CDT [facility] Influenza B antigen Negative Negative 10/04/2024 10:57 AM CDT [facility] Swab NASAL STRUCTURE / Unknown Non-blood Collection / Unknown 10/04/2024 10:31 AM CDT 10/04/2024 10:37 AM CDT Narrative LABORATORY - 10/04/2024 10:57 AM CDT Test results must be correlated with clinical data. If necessary, results should be confirmed by a molecular assay or viral culture. Audrey Díaz PA-C LAB - MICRO GENERAL ORDERAB LES Final Result LABORATORY [facility] Clinic - [place] Lab [address] [facility] (no room number, 1st floor of clinic) [place] [address], [facility] * COVID-19 Virus (Coronavirus) by PCR Nose (10/04/2024 10:31 AM CDT) SARS CoV2 PCR Negative Negative 10/05/2024 9:42 AM CDT [facility] Comment:NEGATIVE: SARS-CoV-2 (COVID-19) RNA not detected, presumed negative. Swab NASAL STRUCTURE / Unknown Non-blood Collection / Unknown 10/04/2024 10:31 AM CDT 10/04/2024 10:37 AM CDT Narrative [facility] - 10/05/2024 9:42 AM CDT Testing was performed using the Aptima SARS-CoV-2 Assay on the i[employer] Instrument System. Additional information about this Emergency [...] COVID-19. This test was validated by the [facility] Infectious Diseases Diagnostic [facility]. This laboratory is certified under the Clinical Laboratory Improvement Amendments of 1988 (CLIA-88) as qualified to perform high complexity laboratory testing. Audrey Díaz PA-C LAB - MICRO GENERAL ORDERAB LES Final Result [facility] Inf. Diseases Diag. Lab [address] [facility], [address] [place] [address] * Group A Streptococcus PCR Throat Swab (10/04/2024 10:08 AM CDT) Group A strep by PCR Not Detected Not Detected 10/04/2024 7:45 PM CDT [facility] Swab STRUCTURE OF ANTERIOR PORTION OF NECK / Unknown Non-blood Collection / Unknown 10/04/2024 10:08 AM CDT 10/04/2024 10:24 AM CDT Narrative [facility] - 10/04/2024 7:45 PM CDT The Xpert Xpress Strep A test, performed on the GeneXpert Instrument Systems, is a rapid, qualitative in [...] reaction (PCR) to detect Streptococcus pyogenes DNA. Audrey Díaz PA-C LAB - MICRO GENERAL ORDERAB LES Final Result [facility]. [facility] Lab [address] [facility], [address] [place] [address] * Streptococcus A Rapid Screen w/Reflex to PCR - Clinic Collect (10/04/2024 10:08 AM CDT) [facility] Signature Group A Strep antigen Negative Negative 10/04/2024 10:24 AM CDT LABORATORY Swab STRUCTURE OF ANTERIOR PORTION OF NECK / Unknown Non-blood Collection / Unknown 10/04/2024 10:08 AM CDT 10/04/2024 10:15 AM CDT Audrey ALCALA-Romana LAB - MICRO GENERAL ORDERAB LES Final Result LABORATORY [facility] [place] Lab [address] [facility] (no room number, 1st floor of clinic) [place] [address] documented in this encounter Visit Diagnoses Diagnosis Throat pain- Primary documented in this encounter Additional Health Concerns Assessment Noted Time PHQ-9 Depression Total Score: 3 02/07/20 24 9:33 AM CDT documented as of this encounter Care Teams Exhibit Display Representative Relationship Specialty Start Date End Date Esha Grimm PA-C [address] [place] [phone] PCP - General Family Medicine 05/04/23 Diana Desir, [facility] [address] [place] [address] Pharmacist Pharmacist 04/17/21 Rain Galaviz PA-C [address] [place] [address] [address] [place] [address] Physician Manager Action Dermatology 04/28/21 Tavia Wyatt MD [address] [place] [address] [address] [place] [address] Dermatology 07/14/21 Erica Farrell APRN TELETYPE ADJUSTER [address] [place] [address] Nurse Practitioner Cardiovascular Disease 09/09/21 Rich Barrett MD [address] [place] [address] Physician Ophthalmology 01/21/22 Neil Kent MD 500 [place] [address] Dermatology 02/24/22 Diana Desir, [facility] [place] [address] Assigned MTM Pharmacist 04/07/22 Livan Sharif MD [address] [place] [address] Cardiovascular Disease 05/14/22 Catherine Cm MD [address] [place] [address] Cardiovascular Disease 07/21/22 Valery Veronica PA-C [address] [place] [address] Physician Manager Action Dermatology 07/21/22 Brea Quinn APRN TELETYPE ADJUSTER [address] [place] [address] 058915 Nurse Practitioner Dermatology 09/21/22 Radha Lomeli APRN TELETYPE ADJUSTER [address] [place] [address] Assigned Heart and Vascular Provider 05/28/23 Jelena David OD [address] [place] [address] [place] [address] Ophthalmology 06/15/23 Esha Grimm PA-C [address] [place] [address] Assigned PCP 07/16/23 Valery Veronica PA-C [address] [place] [address] Physician Manager Action Dermatology 09/19/23 Rey Tay MD [address] [place] [address] 555985 Gastroenterology 09/20/23 Rocky Zepeda DO [address] [place] [address] 031255 Physician Gastroenterology 09/20/23 Philip Dumont MD [address] [place] [address] Physician Ophthalmology 09/22/23 Meredith Carrera PA-C [address] [place] [address] Assigned Gastroenterology Provider 11/01/23 Neil Kent MD [address] [address] Dermatology 11/02/23 [place] [address] [place] [address] 860027 Neurological Surgery 12/26/23 Audrey Waite PA-C [address] [place] [address] Physician Manager Action Dermatology 02/28/24 Valery Veronica PA-C 984170 [place], [place] [address] Physician Manager Action Dermatology 04/10/24 Herminia Hatch MD [address] [place] [address] [id number] Assigned Rheumatology Provider 07/02/24 Jelena David OD [address] [place] [address] [place] [address] Ophthalmology 08/30/24 [place] [address] [place] [address] Assigned Neuroscience Provider 09/30/24 Maru Man PA-C [address] [place] [address] Physician Manager Action Dermatology 10/03/24 documented as of this encounter
--- OUTSIDE RECORDS SUMMARY | 2024-10-18 19:29 | XMS_ITS | Encounter Summary ---
Author Organization [facility] Address [address] [place] [address] Care Team Providers Care Seed Cutter Name Role Phone Diana Desir [facility] Unavailable Rain GalavizC Unavailable Tavia Wyatt MD Unavailable Erica Farrell APRN BULLDOZER/LOADER/COMPACTOR/SCRAPER Unavailable Rich Barrett MD Unavailable [phone] Neil Kent MD Unavailable DesirKendrickDiana Stanislav [facility] Unavailable [phone] Livan Sharif MD Unavailable Catherine Cm MD Unavailable + Valery Veronica-C Unavailable Brea Quinn COLOR TECHNICIAN BULLDOZER/LOADER/COMPACTOR/SCRAPER Unavailable Alfonso Renteria MD Unavailable [phone] Esha GrimmC Primary Care Provider Radha Lomeli COLOR TECHNICIAN BULLDOZER/LOADER/COMPACTOR/SCRAPER Unavailable Jelena David OD Unavailable Alfa, Esha M PA-C Unavailable [phone] Valery Veronica PA-C Unavailable [phone] Rey Tay MD Unavailable Duane Rockyanne [facility] Unavailable Philip Dumont MD Unavailable Meredith Carrera PA-C Unavailable [phone] Neil Kent MD Unavailable Juan Pablo Emmanuel MD Unavailable [phone] Audrey Waite PA-C Unavailable [phone] Valery Veronica PA-C Unavailable Herminia Hatch MD Unavailable Jelena David OD Unavailable Reason for Visit * Reason Onset Date Comments Allergies 09/28/2024 Allergic reactio n to zio patch Encounter Details Date Type Department Care Team (Late st Contact Info) Description 09/28/2024 Telephone [facility] [address] [facility] [address] [place] [address] Livan Sharif MD [address] [facility] [address] [place] [address] Allergies (Allergic reaction to zio patch ) Social History Tobacco Use Types Packs/Day [...] PHQ-2 Score 1 02/07/2024 [facility] - Occupational Stress Questionnaire [...] exercise at this level? 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 message and she has only been able to wear the monitor for 2/7 days she is tryingto wear it as long as possible however she has noticed itching and blisters. Patient is asking if there is an alternative ie holter or event monitor would be less irritating for her skin? She has worn those in the past. Zio is a continuous EKG and would provide the best information for SVT if she is unable to tolerate wearing the monitor she can discontinue wearing it an mail it back. Will forward to Rodrigo with update. Franchesca Johns RN, BSN [phone] Left detailed message on V.M unfortunately reached out to Cardiopulmonary on previous TE. How many days she has been able to wear the 7 day Zio and if she was having sx while wearing the monitor? Possible need to discontinue wearing the monitor and unfortunately there are no other alternative patches. Patient to call back on nurse line. Franchesca Johns RN, BSN [phone] * Telephone Encounter - Rain Bee - 09/28/2024 7:25 AM CDT [facility] Call Center Phone Message May a detailed message be left on voicemail: yes Reason for Call: Other: Zio patch is giving patient allergic reaction where she is blistering and itchy. Patient would like to know if there is an alternative. Patient works, it okay to leave voicemail or mychart message. Action Taken: Other: cardio Travel Screening: Not Applicable Date of Service: documented in this encounter Plan of Treatment Upcoming Encounters Date Type Department Care Team (Late st Contact Info) Description 10/22/2024 11:00 AM CDT Office Visit [address] [phone] Maru Man PA-C [address] [place] [address] 10/23/2024 PRE VISIT [facility] Neurology [facility] - [address], [address] [place] [phone] Johnny Penn MD [address] [place] [address] Previsit 10/23/2024 9:30 AM CDT Office Visit [facility] Neurology Clinics - [place] [address] [facility], [address] [place] [phone] [place] [address] [place] [address] Johnny Penn MD [address] [facility] [place] [address] 10/24/2024 4:00 PM CDT Office Visit [facility] [address] [place] [phone] Jelena David, OD [address] [facility] [place] [phone] 10/31/2024 9:15 AM CDT Virtual Visit [facility] Gastroenterology Clinic [address] [phone] Meredith Carrera PA-C [address] [place] [phone] 12/20/2024 2:30 PM CDT Office Visit [facility] [address] [place] [address] Esha Grimm PA-C [address] [place] [address] documented as of this encounter Visit Diagnoses Not on filedocumented in this encounter Additional Health Concerns Assessment Noted Time PHQ-9 Depression Total Score: 3 02/07/20 24 9:33 AM CDT documented as of this encounter Care Teams Seed Cutter Relationship Specialty Start Date End Date Esha Grimm PA-C [id number] [place] [phone] PCP - General Family Medicine 05/04/23 Diana Desir, [facility] [address] [place] [address] Pharmacist Pharmacist 04/17/21 Rain Galaviz PA-C [address] [place] [address] [address] [facility] [place] [address] Physician Ship Self Defense System Mk1 Operator Dermatology 04/28/21 Tavia Wyatt MD [address] [place] [address] DR [facility] [facility] [place] [place] [address] Dermatology 07/14/21 Erica Farrell APRN BULLDOZER/LOADER/COMPACTOR/SCRAPER [address] [place] [address] Nurse Practitioner Cardiovascular Disease 09/09/21 Rich Barrett MD [address] [place] [address] Physician Ophthalmology 01/21/22 Neil Kent MD 500 [place] [address] Dermatology 02/24/22 Diana Desir, [facility] [address] [place] [address] Assigned MTM Pharmacist 04/07/22 Livan Sharif MD [address] [place] [id number] Cardiovascular Disease 05/14/22 Catherine Cm MD [address] [facility] [address] [place] [address] Cardiovascular Disease 07/21/22 Valery Veronica PA-C [address] [place] [address] 967755 Physician Ship Self Defense System Mk1 Operator Dermatology 07/21/22 Brea Quinn APRN BULLDOZER/LOADER/COMPACTOR/SCRAPER [address] [place] [address] 423355 Nurse Practitioner Dermatology 09/21/22 Alfonso Renteria MD [address] [facility] [address] [place], [place] [phone] Assigned Neuroscience Provider 04/02/23 09/29/24 Radha Lomeli APRN BULLDOZER/LOADER/COMPACTOR/SCRAPER [address] [facility] [address] [place] [address] Assigned Heart and Vascular Provider 05/28/23 Jelena David OD [facility] [facility] [place] [address] Ophthalmology 06/15/23 Esha Grimm PA-C [address] [place] [address] Assigned PCP 07/16/23 Valery Veronica PA-C [address] [place] [address] 618685 Physician Ship Self Defense System Mk1 Operator Dermatology 09/19/23 Rey Tay MD [address] [place] [address] MD Gastroenterology 09/20/23 Rocky Zepeda DO [address] [place] [address] Physician Gastroenterology 09/20/23 Philip Dumont MD [address] [place] [address] Physician Ophthalmology 09/22/23 Meredith Carrera PA-C [address] [place] [address] Assigned Gastroenterology Provider 11/01/23 Neil Kent MD [address] [address] Dermatology 11/02/23 [place] [address] [address] Neurological Surgery 12/26/23 Audrey Waite PA-C [address] [place] [address] Physician Ship Self Defense System Mk1 Operator Dermatology 02/28/24 Valery Veronica PA-C [address]275 [address] [place] [address] Physician Ship Self Defense System Mk1 Operator Dermatology 04/10/24 Herminia Hatch MD [address] [place] [address] Assigned Rheumatology Provider 07/02/24 Jelena David OD [address] [facility] [place] [address] Ophthalmology 08/30/24 documented as of this encounter
--- OUTSIDE RECORDS SUMMARY | 2024-10-18 19:29 | XMS_ITS | Encounter Summary ---
Author Organization [place] Address [address] [place] [address] Care Team Providers Care Crm Coordinator Name Role Phone Diana Desir Stanislav [facility] Unavailable [phone] Rain Galaviz PA-C Unavailable [phone] Tavia Wyatt MD Unavailable Erica Farrell APRN COTTON PULLER Unavailable Rich Barrett MD Unavailable [phone] Neil Kent MD Unavailable ThangKendrickDiana Stanislav [facility] Unavailable [phone] Livan Sharif MD Unavailable Catherine Cm MD Unavailable + Valery Veronica-C Unavailable Brea Quinn ETIQUETTE TEACHER COTTON PULLER Unavailable Esha Grimm PA-C Primary Care Provider [phone] Radha Lomeli APRN COTTON PULLER Unavailable Jelena David OD Unavailable Esha Grimm PA-C Unavailable [phone] Valery Veronica PA-C Unavailable Rey Tay MD Unavailable DuaneRocky Unavailable Philip Dumont MD Unavailable Meredith CarreraC Unavailable Neil Kent MD Unavailable Juan Pablo Emmanuel MD Unavailable [phone] Audrey WaiteC Unavailable Valery VeronicaC Unavailable [phone] Herminia Hatch MD Unavailable Jelena David OD Unavailable Juan Pablo Emmanuel MD Unavailable [phone] Maru ManC Unavailable [phone] Encounter Details Date Type Department Care Team (Late st Contact Info) Description 10/02/2024 [facility] Medical Advice [facility] [address] [place] [address] Esha Grimm PA-C [address] [place] [address] Social History Tobacco Use Types [...] 05/07/2024 How often do you attend [facility] or [facility] services? 1 to 4 times [...] Answer Date Recorded PHQ-2 Score 1 02/07/2024 [facility] - Occupational Stress Questionnaire Answer [...] exercise at this level? 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 Neurology [facility] - [address], [address] [place] [address] Johnny Penn MD [address] [place] [address] Previsit 10/23/2024 9:30 AM CDT Office Visit [facility] Neu[facility] [address] [facility], [address] [place] [phone] [place] [address] [place] [id number] Johnny Penn MD [address] [place] [place] 8[address]35 10/24/2024 4:00 PM CDT Office Visit [facility] [address] [facility] [address] [place] [phone] Jelena David, [address] [place] [address] [place] [address] 10/31/2024 9:15 AM CDT Virtual [address] [facility] Gastroenterology [address] [phone] Meredith Carrera PA-C [address] [place] [address]405 12/20/2024 2:30 PM CDT Office Visit [facility] [address] [place] [address] Esha Grimm PA-C [id number] [place] [address] documented as of this encounter Visit Diagnoses Not on filedocumented in this encounter Additional Health Concerns Assessment Noted Time PHQ-9 Depression Total Score: 3 02/07/20 24 9:33 AM CDT documented as of this encounter Care Teams Crm Coordinator Relationship Specialty Start Date End Date Esha Grimm PA-C [address] [place] [address] PCP - General Family Medicine 05/04/23 Diana Desir, [facility] [address] [place] [address] Pharmacist Pharmacist 04/17/21 Rain Galaviz PA-C [address] [place] [address] [address] [place] [address] Physician Geriatric Nurse Practitioner Dermatology 04/28/21 Tavia Wyatt MD [address] [place] [address] [address] [place] [address] Dermatology 07/14/21 Erica Farrell APRN COTTON PULLER [address] [place], [place] 668925 Nurse Practitioner Cardiovascular Disease 09/09/21 Rich Barrett MD [address] [place] [address] Physician Ophthalmology 01/21/22 Neil Kent MD 500 [place] [address] Dermatology 02/24/22 Diana Desir, [facility] [address] [place] [address] Assigned MTM Pharmacist 04/07/22 Livan Sharif MD [address] [place] [address] Cardiovascular Disease 05/14/22 Catherine Cm MD [address] [place] 415185 Cardiovascular Disease 07/21/22 Valery Veronica PA-C [address] [place] [address] 893795 Physician Geriatric Nurse Practitioner Dermatology 07/21/22 Brea Quinn APRN COTTON PULLER [address] [place] [address] 219335 Nurse Practitioner Dermatology 09/21/22 Radha Lomeli APRN COTTON PULLER [address] [place] 212155 Assigned Heart and Vascular Provider 05/28/23 Jelena David OD [address] [place] [address] Ophthalmology 06/15/23 Esha Grimm PA-C [address] [place] [address] Assigned PCP 07/16/23 Valery Veronica PA-C [address] [place] [address] 861995 Physician Geriatric Nurse Practitioner Dermatology 09/19/23 Rey Tay MD [address] [place] [address] MD Gastroenterology 09/20/23 Rocky Zepeda DO [address] [place] [address] Physician Gastroenterology 09/20/23 Philip Dumont MD [address] [place] [address] Physician Ophthalmology 09/22/23 Meredith Carrera PA-C [address] [place] [address] 698035 Assigned Gastroenterology Provider 11/01/23 Neil Kent MD [address] [place] [address] MD Dermatology 11/02/23 [place] [address] [address] [facility] [place] [address] Neurological Surgery 12/26/23 Audrey Waite PA-C [address] [place] [address] Physician Geriatric Nurse Practitioner Dermatology 02/28/24 Valery Veronica PA-C 641373 [place] [address] Physician Geriatric Nurse Practitioner Dermatology 04/10/24 Herminia Hatch MD [facility] [place] [address] Assigned Rheumatology Provider 07/02/24 Jelena David OD [address] [place] [address] Ophthalmology 08/30/24 [place] [address] [place], [place] [address] Assigned Neuroscience Provider 09/30/24 Maru Man PA-C [address] [place] [address] Physician Geriatric Nurse Practitioner Dermatology 10/03/24 documented as of this encounter
--- OUTSIDE RECORDS SUMMARY | 2024-10-18 19:29 | XMS_ITS | Encounter Summary ---
Author Organization [place] Address [address] [place] [address] Care Team Providers Care Scenery Builder Name Role Phone Diana Desir [facility] Unavailable Rain Galaviz PA-C Unavailable Tavia Wyatt MD Unavailable [phone] Erica Farrell APRN FAMILY PRESERVATION WORKER Unavailable Rich Barrett MD Unavailable [phone] Neil Kent MD Unavailable Diana Desir [facility] Unavailable [phone] Livan Sharif MD Unavailable Catherine mC MD Unavailable + Valery Veronica PA-C Unavailable Brea Quinn BULK TANK DRIVER FAMILY PRESERVATION WORKER Unavailable Brea Quinn BULK TANK DRIVER FAMILY PRESERVATION WORKER Unavailable [phone] Jose Francisco Johnson MD Unavailable Alfonso Renteria MD Unavailable [phone] Esha Grimm PA-C Primary Care Provider [phone] Radha Lomeli APRN FAMILY PRESERVATION WORKER Unavailable Tommy Davidmao Templetone OD Unavailable [phone] Pao Joseph RN Unavailable Unavailable [facility] PA-C Unavailable [phone] Valery Veronica PA-C Unavailable [phone] Rey Tay MD Unavailable Rocky Zepeda DO Unavailable Philip Dumont MD Unavailable [phone] Meredith Carrera PA-C Unavailable [phone] Neil Kent MD Unavailable Juan Pablo Emmanuel MD Unavailable [phone] Audrey Waite PA-C Unavailable [phone] Valery Veronica PA-C Unavailable [phone] Herminia Hatch MD Unavailable Jelena David OD Unavailable Juan Pablo Emmanuel MD Unavailable [phone] Maru Man PA-C Unavailable [phone] Encounter Details Date Type Department Care Team (Late st Contact Info) Description 08/25/2023 [facility] Medical Advice [facility] G[facility] Clinic [address] [address] Marija Polanco, VJ Social History [...] Score 0 06/20/2023 [facility] - Occupational Stress Questionnaire [...] at this level? 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 Gender Identity Female 03/02/2021 5:45 PM CDT Sexual Orientation Straight 02/28/2020 12 :51 AM CDT documented as of this encounter Plan of Treatment Upcoming Encounters Date Type Department Care Team (Late st Contact Info) Description 10/22/2024 11:00 AM CDT Office Visit [address] [phone] Maru Man PA-C [address] [address] 10/23/2024 PRE VISIT [facility] Neurology [facility] - [address], [address] [place] [address] Johnny Penn MD [address] [place] [address] Previsit 10/23/2024 9:30 AM CDT Office Visit [facility] Neurology [facility] [address] [facility], [address] [place] [phone] [place] [address] [place] [id number] Johnny Penn MD [address] [place] [place] 2[address]75 10/24/2024 4:00 PM CDT Office Visit [facility] [address] [facility] [address] [place] [phone] Jelena David, [address] [facility] [place] [address] 10/31/2024 9:15 AM CDT Virtual Visit [facility] Gastroenterology Clinic [address] [phone] Meredith Carrera PA-C [address] [place] [address] 12/20/2024 2:30 PM CDT Office Visit [facility] [address] [place] [address] Esha Grimm PA-C [address] [place] [address] documented as of this [...] Total Score: 4 06/20/20 23 8:40 AM TELEPRINTER INSTALLER documented as of this encounter Care Teams Scenery Builder Relationship Specialty Start Date End Date Esha Grimm PA-C [address] [place] [address] PCP - General Family Medicine 05/04/23 Diana Desir, [facility] [address] [facility] [place] [address] Pharmacist Pharmacist 04/17/21 Rain Galaviz PA-C [address] [place] [address] [address] [facility] [place] [address] Physician Gynaecological Oncologist Dermatology 04/28/21 Tavia Wyatt MD [address] [place] [address] [address] [facility] [place] [address] Dermatology 07/14/21 Erica Farrell APRN FAMILY PRESERVATION WORKER [address] [place] [address] Nurse Practitioner Cardiovascular Disease 09/09/21 Rich Barrett MD [address] [place] [address] Physician Ophthalmology 01/21/22 Neil Kent MD 500 [place] [address] Dermatology 02/24/22 [facility] 3033 [place] [address] Assigned [place] Pharmacist 04/07/22 Livan Sharif MD [address] [place] 5632100 [place] [address] Cardiovascular Disease 05/14/22 Catherine Cm MD [address] [address] Cardiovascular Disease 07/21/22 Valery Veronica, PA-C 909 [place] [address] Physician Gynaecological Oncologist Dermatology 07/21/22 Brea Quinn APRN FAMILY PRESERVATION WORKER 500 [place] [address] Nurse Practitioner Dermatology 09/21/22 Brea Quinn APRN FAMILY PRESERVATION WORKER [address] [place] [address] Assigned Surgical Provider 10/09/22 05/01/24 [place] [address] [place] [address] [address] Assigned Musculoskeletal Provider 10/09/22 05/01/24 Alfonso Renteria MD [address] [place] [address] Assigned Neuroscience Provider 04/02/23 09/29/24 Radha Lomeli APRN FAMILY PRESERVATION WORKER [address] [place] [id number] Assigned Heart and Vascular Provider 05/28/23 Jelena David, SONJA [address] [facility] [place] [address] MD Ophthalmology 06/15/23 Pao Joseph, VJ Personal Advocate & Liaison (PAL) Nurse 08/01/23 11/07/23 Esha Grimm PA-C [address] [place] [phone] Assigned PCP 07/16/23 Valery Veronica PA-C [address] [place] [address] 319815 Physician Gynaecological Oncologist Dermatology 09/19/23 Rey Tay MD [address] [place] [address] 299345 Gastroenterology 09/20/23 Rocky Zepeda DO [address] [place] [address] 881435 Physician Gastroenterology 09/20/23 Philip Dumont MD [address] [place] [address] 637195 Physician Ophthalmology 09/22/23 Meredith Carrera PA-C [address] [place] [address] 483795 Assigned Gastroenterology Provider 11/01/23 Neil Kent MD [address] [place] [address] Dermatology 11/02/23 [place] [address] [place] [address] Neurological Surgery 12/26/23 Audrey Waite PA-C [address] [place] [address] Physician Gynaecological Oncologist Dermatology 02/28/24 Valery Veronica PA-C [address] [place] [address] Physician Gynaecological Oncologist Dermatology 04/10/24 Herminia Hatch MD [address] [place] [address] [id number] Assigned Rheumatology Provider 07/02/24 Jelena David OD [address] [place] [address] [place] [id number] Ophthalmology 08/30/24 [place] [address] [place] [id number] Assigned Neuroscience Provider 09/30/24 Maru Man PA-C [address] [place] [address] Physician Gynaecological Oncologist Dermatology 10/03/24 documented as of this encounter
--- OUTSIDE RECORDS SUMMARY | 2024-10-18 19:30 | XMS_ITS | Encounter Summary ---
Author Organization [place] Address [address] [place] [address] Care Team Providers Care Pediatric Orthodontist Name Role Phone Diana Desir [facility] Unavailable Rain Galaviz PA-C Unavailable Tavia Wyatt MD Unavailable [phone] Erica Farrell APRN ENGINEERING DOCUMENT CONTROL CLERK Unavailable Rich Barrett MD Unavailable [phone] Neil Kent MD Unavailable Diana Desir [facility] Unavailable Livan Sharif MD Unavailable Catherine Cm MD Unavailable + Valery Veronica PA-C Unavailable [phone] Brea Quinn JACQUARD LOOM HEDDLES TIER ENGINEERING DOCUMENT CONTROL CLERK Unavailable Brea Quinn JACQUARD LOOM HEDDLES TIER ENGINEERING DOCUMENT CONTROL CLERK Unavailable Jose Francisco Johnson MD Unavailable Alfonso Renteria MD Unavailable [phone] Esha Grimm PA-C Primary Care Provider Radha Lomeli APRN ENGINEERING DOCUMENT CONTROL CLERK Unavailable FarnkieJelenae OD Unavailable Pao Joseph RN Unavailable Unavailable Esha Grimm Adam PA-C Unavailable [phone] Valery Veronica PA-C Unavailable [phone] Rey Tay MD Unavailable Rocky Zepeda DO Unavailable Philip Dumont MD Unavailable [phone] Meredith Carrera PA-C Unavailable [phone] Neil Kent MD Unavailable Juan Pablo Emmanuel MD Unavailable [phone] Audrey Waite PA-C Unavailable [phone] Valery Veronica PA-C Unavailable Herminia Hatch MD Unavailable Jelena David OD Unavailable Juan Pablo Emmanuel MD Unavailable Maru Man PA-C Unavailable [phone] Encounter Details Date Type Department Care Team (Late st Contact Info) Description 08/11/2023 [facility] Medical Advice [address] [address] Pao Joseph, RN Social History [...] Recorded PHQ-2 Score 0 06/20/2023 [facility] - [...] exercise at this level? 30 min 03/10/2023 [place] Depression Scale Answer Date Recorded [place] [...] PM CDT Legal Sex Female 4:13 AM COLOR CHECKER Gender Identity Female 03/02/2021 5:45 PM CDT Sexual Orientation Straight 02/28/2020 12 :51 AM CDT documented as of this encounter Plan of Treatment Upcoming Encounters Date Type Department Care Team (Late st Contact Info) Description 10/22/2024 11:00 AM CDT Office Visit [address] [phone] Maru Man PA-C [address] [address] 10/23/2024 PRE VISIT [facility] Neurology [facility] - [address], [address] [place] [address] Johnny Penn MD [address] [place], [place] [address]E [place] [address] Previsit 10/23/2024 9:30 AM CDT Office Visit [facility] Neurology [facility] [address] [facility], [address] [place] [phone] [place] [address] [place] [address] Johnny Penn MD [address] [place] [place] 2134[address] 10/24/2024 4:00 PM CDT Office Visit [facility] [address] [facility] [address] [place] [phone] Jelena David, [address] [facility] [place] [address] 10/31/2024 9:15 AM CDT Virtual Visit [facility] Gastroenterology Clinic [address] [phone] Meredith Carrera PA-C [address] [place] [address] 852605 12/20/2024 2:30 PM CDT Office Visit [facility] [address] [place] [address] Esha Grimm PA-C [address] [place] [address] documented as of this encounter Visit Diagnoses Not on filedocumented in this encounter Additional Health Concerns Infection Onset Date Last Indicated Resolved Time Rule Out COVID-19 12/26/2023 12/26/2023 12/26/2023 9:50 AM CDT Rule Out COVID-19 04/09/2024 04/09/2024 04/10/2024 6:48 PM CDT Rule Out COVID-19 10/04/2024 10/04/2024 10/05/2024 9:42 AM CDT Assessment Noted Time PHQ-9 Depression Total Score: 4 06/20/20 8:40 AM COLOR CHECKER documented as of this encounter Care Teams Pediatric Orthodontist Relationship Specialty Start Date End Date Esha Grimm PA-C [address] [place] [address] PCP - General Family Medicine 05/04/23 Diana Desir, [facility] 3033 [place] [address] Pharmacist Pharmacist 04/17/21 Rain Galaviz PA-C [address] [place] [address] [address] [place] [address] Physician Yard Hand Dermatology 04/28/21 Tavia Wyatt MD [address] [place] [address] [address] [place] [address] Dermatology 07/14/21 Erica Farrell APRN ENGINEERING DOCUMENT CONTROL CLERK [address] [place] [address] Nurse Practitioner Cardiovascular Disease 09/09/21 Rich Barrett MD [address] [place] [address] Physician Ophthalmology 01/21/22 Neil Kent MD 500 [place] [address] Dermatology 02/24/22 Diana Desir, [facility] 3033 [place] [address] Assigned [place] Pharmacist 04/07/22 Livan Sharif MD [address] [facility] [address] [place] [address] Cardiovascular Disease 05/14/22 Catherine Cm MD [address] [facility] [address] [place] [address] Cardiovascular Disease 07/21/22 Valery Veronica, PA-C [address] [place] [address] Physician Yard Hand Dermatology 07/21/22 Brea Quinn APRN ENGINEERING DOCUMENT CONTROL CLERK 500 [place] [address] Nurse Practitioner Dermatology 09/21/22 Brea Quinn APRN ENGINEERING DOCUMENT CONTROL CLERK [address] [place] [address] Assigned Surgical Provider 10/09/22 05/01/24 [place] [address] [facility] [address] [place] [address] Assigned Musculoskeletal Provider 10/09/22 05/01/24 Alfonso Renteria MD [address] [facility] 200 [place] [address] Assigned Neuroscience Provider 04/02/23 09/29/24 Radha Lomeli APRN ENGINEERING DOCUMENT CONTROL CLERK [address] [place] [address] Assigned Heart and Vascular Provider 05/28/23 Jelena David OD [address] [facility] [address] Ophthalmology 06/15/23 Pao Joseph, VJ Personal Advocate & Liaison (PAL) Nurse 08/01/23 11/07/23 Esha Grimm PA-C [address] [place] [phone] Assigned PCP 07/16/23 Valery Veronica PA-C [address] [place] [address] 884045 Physician Yard Hand Dermatology 09/19/23 Rey Tay MD [address] [place] [address] 767665 Gastroenterology 09/20/23 Rocky Zepeda DO [address] [place] [address] 367105 Physician Gastroenterology 09/20/23 Philip Dumont MD [address] [place] [address] 817415 Physician Ophthalmology 09/22/23 Meredith Carrera PA-C [address] [place] [address] 574755 Assigned Gastroenterology Provider 11/01/23 Neil Kent MD [address] [place] [address] MD Dermatology 11/02/23 [place] [address] [place] [address] Neurological Surgery 12/26/23 Audrey Waite PA-C 500 [place] [address] Physician Yard Hand Dermatology 02/28/24 Valery Veronica PA-C 281187 [address], [place] [address] Physician Yard Hand Dermatology 04/10/24 Herminia Hatch MD [address] [place] [address] [phone] Assigned Rheumatology Provider 07/02/24 [place] [address] [place] [address] [place] [address] Ophthalmology 08/30/24 [place] [address] [place] [address] Assigned Neuroscience Provider 09/30/24 Maru Man PA-C [address] [place] [address] Physician Yard Hand Dermatology 10/03/24 documented as of this encounter
--- OUTSIDE RECORDS SUMMARY | 2024-10-18 19:30 | XMS_ITS | Encounter Summary ---
Author Organization [facility] Address [address] [place] [address] Care Team Providers Care Nurse Quality Name Role Phone Diana Desir [facility] Unavailable Rain Galaviz PA-C Unavailable Tavia Wyatt MD Unavailable [phone] Erica Farrell APRN ACCOUNTS RECEIVABLE EXECUTIVE Unavailable Rich Barrett MD Unavailable [phone] Neil Kent MD Unavailable Diana Desir [facility] Unavailable Livan Sharif MD Unavailable Catherine Cm MD Unavailable + Valery Veronica PA-C Unavailable Brea Quinn MASTER NAVAL PARACHUTIST ACCOUNTS RECEIVABLE EXECUTIVE Unavailable Brea Quinn MASTER NAVAL PARACHUTIST ACCOUNTS RECEIVABLE EXECUTIVE Unavailable Jose Francisco Johnson MD Unavailable Sydnie Martinez RN Unavailable Unavailable Alfonso Renteria MD Unavailable [phone] Esha Grimm PA-C Primary Care Provider Radha Lomeli APRN ACCOUNTS RECEIVABLE EXECUTIVE Unavailable FrankieJelenae OD Unavailable [phone] Pao Joseph RN Unavailable Unavailable Esha Grimm PA-C Unavailable [phone] Valery Veronica PA-C Unavailable [phone] Rey Tay MD Unavailable Rocky Zepeda [...] Contact Info) Description 07/27/2023 MyC Medical Advice [address] [address] Diana Desir, [facility] [address] [place] [address] Social History Tobacco Use Types [...] exercise at this level? 30 min 03/10/2023 [place] Depression Scale Answer Date Recorded [place] Depression Score 5 01/14/2021 Last EPDS Self [...] PM CDT Legal Sex Female 4:[address]UTTER Gender Identity Female 03/02/2021 5:45 PM CDT Sexual Orientation Straight 02/28/2020 12 :51 AM CDT documented as of this encounter Plan of Treatment Upcoming Encounters Date Type Department Care Team (Late st Contact Info) Description 10/22/2024 11:00 AM CDT Office Visit [facility] [address] [address] Maru Man PA-C [address] [address] 10/23/2024 PRE VISIT [facility] Neurology [address], [address] [place] [phone] Johnny Penn MD [address] [place] [address] Previsit 10/23/2024 9:30 AM CDT Office Visit [facility] Neurology [address], [address] [place] [phone] [place] [address] [place], [place] [address] Johnny Penn MD [address] [place] [address]75 10/24/2024 4:00 PM CDT Office Visit [facility] [address] [facility] [address] [place] [phone] Jelena David, [address] [place] [address] 10/31/2024 9:15 AM CDT Virtual Visit [facility] Gastroenterology Clinic [address] 4th [place] [phone] Meredith Carrera PA-C [address] [place] [address]225 12/20/2024 2:30 PM CDT Office Visit [facility] [address] [place] [address] Esha Grimm PA-C [address] [place] [address] documented as of this encounter Visit Diagnoses Not on filedocumented in this encounter Additional Health Concerns Infection Onset Date Last Indicated Resolved Time Rule Out COVID-19 12/26/2023 12/26/2023 12/26/2023 9:50 AM CDT Rule Out COVID-19 04/09/2024 04/09/2024 04/10/2024 6:48 PM CDT Rule Out COVID-19 10/04/2024 10/04/2024 10/05/2024 9:42 AM CDT Assessment Noted Time PHQ-9 Depression Total Score: 4 06/20/20 8:[address]UTTER documented as of this encounter Care Teams Nurse Quality Relationship Specialty Start Date End Date Esha Grimm PA-C [address] [place] [phone] PCP - General Family Medicine 05/04/23 [facility] [address] [place] [address] Pharmacist Pharmacist 04/17/21 Rain Galaviz PA-C [address] [place] [address] [address] [place] [address] Physician Institutional Research Director Dermatology 04/28/21 Tavia Wyatt MD [address] [place] [address] [address] [place] [address] Dermatology 07/14/21 Erica Farrell APRN ACCOUNTS RECEIVABLE EXECUTIVE [address] [place] [address] Nurse Practitioner Cardiovascular Disease 09/09/21 Rich Barrett MD [address] [place] [address] Physician Ophthalmology 01/21/22 Neil Kent MD 500 [place] [address] Dermatology 02/24/22 Diana Desir, [facility] [address] [place] [address] Assigned MTM Pharmacist 04/07/22 Livan Sharif MD [address] [place] 100425 Cardiovascular Disease 05/14/22 Catherine Cm MD [address] [place] 940825 Cardiovascular Disease 07/21/22 Valery Veronica, PA-C 909 [place], [place] 7[address] Physician Institutional Research Director Dermatology 07/21/22 Brea Quinn APRN ACCOUNTS RECEIVABLE EXECUTIVE 500 [place] [address] Nurse Practitioner Dermatology 09/21/22 Brea Quinn APRN ACCOUNTS RECEIVABLE EXECUTIVE 6401 [facility] [place] 391662 Assigned Surgical Provider 10/09/22 05/01/24 [place] [address] [place] [address] Assigned Musculoskeletal Provider 10/09/22 05/01/24 Sydnie Martinez RN Personal Advocate & Liaison (PAL) Family Medicine 03/28/23 07/31/23 Alfonso Renteria MD [address] [facility] [address] 200 [place] [address] Assigned Neuroscience Provider 04/02/23 09/29/24 Radha Lomeli, MASTER NAVAL PARACHUTIST ACCOUNTS RECEIVABLE EXECUTIVE [address] [facility] [address] [place] [address] Assigned Heart and Vascular Provider 05/28/23 Jelena David OD [address] [place] [address] Ophthalmology 06/15/23 Pao Joseph, VJ Personal Advocate & Liaison (PAL) Nurse 08/01/23 11/07/23 Esha Grimm PA-C [address] [place] [phone] Assigned PCP 07/16/23 Valery Veronica PA-C [address] [place] [address] 069735 Physician Institutional Research Director Dermatology 09/19/23 Rey Tay MD [address] [place] [address] 615745 Gastroenterology 09/20/23 Rocky Zepeda DO [address] [place] [address] 951505 Physician Gastroenterology 09/20/23 Philip Dumont MD [address] [place] [address] Physician Ophthalmology 09/22/23 Meredith Carrera PA-C [address] [place] [address] Assigned Gastroenterology Provider 11/01/23 Neil Kent MD [address] [address] Dermatology 11/02/23 [place] [address] [place] [address] Neurological Surgery 12/26/23 Audrey Waite PA-C [address] [place] [address] Physician Institutional Research Director Dermatology 02/28/24 Valery Veronica PA-C [address] [place] [address] Physician Institutional Research Director Dermatology 04/10/24 Herminia Hatch MD [address] [place] [address] [id number] Assigned Rheumatology Provider 07/02/24 [place] [address] [place] [address] [place] [address] Ophthalmology 08/30/24 [place] [address] [place] [address] Assigned Neuroscience Provider 09/30/24 Maru Man PA-C [address] [address] Physician Institutional Research Director Dermatology 10/03/24 documented as of this encounter
--- OUTSIDE RECORDS SUMMARY | 2024-10-18 19:30 | XMS_ITS | Encounter Summary ---
Author Organization [facility] Address [address] [place] [address] Care Team Providers Care Clinical Trial Manager Name Role Phone Diana Desir [facility] Unavailable Rain GalaivzC Unavailable Tavia Wyatt MD Unavailable Erica Farrell APRN CHIP CRUSHER OPERATOR Unavailable Rich Barrett MD Unavailable [phone] Neil Kent MD Unavailable DesirKendrickDiana Stanislav [facility] Unavailable [phone] Livan Sharif MD Unavailable Catherine Cm MD Unavailable + Valery Veronica-C Unavailable Brea Quinn HEAD SUGAR REPROCESS OPERATOR CHIP CRUSHER OPERATOR Unavailable Alfonso Renteria MD Unavailable [phone] Esha GrmimC Primary Care Provider [phone] Radha Lomeli HEAD SUGAR REPROCESS OPERATOR CHIP CRUSHER OPERATOR Unavailable Jelena David OD Unavailable [place], Esha M PA-C Unavailable [phone] Vlaery Veronica PA-C Unavailable [phone] Rey Tay MD Unavailable Rocky Zeepda DO Unavailable Philip Dumont MD Unavailable Meredith Carrera PA-C Unavailable Neil Kent MD Unavailable Juan Pablo Emmanuel MD Unavailable [phone] Audrey Waite PA-C Unavailable [phone] Valery Veronica PA-C Unavailable Herminia Hatch MD Unavailable Jelena David OD Unavailable Juan Pablo Emmanuel MD Unavailable Maru Man PA-C Unavailable [phone] Encounter Details Date Type Department Care Team (Late st Contact Info) Description 06/05/2024 MyC Medical Advice [address] [address] Herminia Hatch MD [address] [place] [address] Social History Tobacco Use Types Packs/Day [...] 1 02/07/2024 [facility] - Occupational Stress Questionnaire [...] exercise at this level? 20 min 05/07/2024 [place] Depression Scale Answer Date Recorded [place] [...] PM CDT Legal Sex Female 4:13 AM AGRONOMY MANAGER Gender Identity Female 03/02/2021 5:45 PM CDT Sexual Orientation Straight 02/28/2020 12 :51 AM CDT documented as of this encounter Plan of Treatment Upcoming Encounters Date Type Department Care Team (Late st Contact Info) Description 10/22/2024 11:00 AM CDT Office Visit [facility] [address] [phone] Maru Man PA-C [address] [place] [address] 10/23/2024 PRE VISIT [facility] Neurology [facility] - [address], [address] [place] [address] Johnny Penn MD [address] [place] 378[address] Previsit 10/23/2024 9:30 AM CDT Office Visit [facility] Neurology [facility] [address] [facility], [address] [place] [phone] [place] [address] [place] [address] Johnny Penn MD [address] [place] 24[address] 10/24/2024 4:00 PM CDT Office Visit [facility] [address] [facility] [address] [place] [phone] Jelena David, [address] [facility] [place] [address] 10/31/2024 9:15 AM CDT Virtual Visit [facility] Gastroenterology Clinic [address] 4th [place] [phone] Meredith Carrera PA-C [address] [place] [address] 920135 12/20/2024 2:30 PM CDT Office Visit [facility] [address] [place] [address] Esha Grimm PA-C [address] [place] [address] documented as of this encounter Visit Diagnoses Not on filedocumented in this encounter Additional Health Concerns Infection Onset Date Last Indicated Resolved Time Rule Out COVID-19 10/04/202410/04/2024 10/05/2024 9:42 AM CDT Assessment Noted Time PHQ-9 Depression Total Score: 3 02/07/20 24 9:33 AM CDT documented as of this encounter Care Teams Clinical Trial Manager Relationship Specialty Start Date End Date Esha Grimm PA-C [address] [place] [address] PCP - General Family Medicine 05/04/23 Diana Desir, [facility] [address] [place], [place] [address] Pharmacist Pharmacist 04/17/21 Rain Galaviz PA-C [address] [place] [address] [address] [place] [address] Physician Him Assistant Dermatology 04/28/21 Tavia Wyatt MD [address] [place] [address] [address] [place] [facility] [place] [address] Dermatology 07/14/21 Erica Farrell APRN CHIP CRUSHER OPERATOR [address] [place] [address] Nurse Practitioner Cardiovascular Disease 09/09/21 Rich Barrett MD [address] [place] [address] Physician Ophthalmology 01/21/22 Neil Kent MD 500 [place] [address] Dermatology 02/24/22 Diana Desir, [facility] 3033 [place] [address] Assigned MTM Pharmacist 04/07/22 Livan Sharif MD [address] [facility] [address] [place] [address] Cardiovascular Disease 05/14/22 Catherine Cm MD [address] [facility] [address] [place], [place] 06[address] Cardiovascular Disease 07/21/22 Valery Veronica PA-C 909 [place] [address] Physician Him Assistant Dermatology 07/21/22 Brea Quinn APRN CHIP CRUSHER OPERATOR 500 [place] [address] Nurse Practitioner Dermatology 09/21/22 Alfonso Renteria MD 5775 [facility] 200 [place] [address] Assigned Neuroscience Provider 04/02/23 09/29/24 Radha Lomeli APRN CHIP CRUSHER OPERATOR [address] [place] [address] Assigned Heart and Vascular Provider 05/28/23 Jelena David OD [address] [place] [address] [place] [address] Ophthalmology 06/15/23 Esha Grimm PA-C [address] [place] [address] Assigned PCP 07/16/23 Valery Veronica PA-C [address] [place] [address] Physician Him Assistant Dermatology 09/19/23 Rey Tay MD [address] [place] [address] MD Gastroenterology 09/20/23 Rocky Zepeda DO [address] [place] [address] 266715 Physician Gastroenterology 09/20/23 Philip Dumont MD [address] [place] [address] Physician Ophthalmology 09/22/23 Meredith Carrera PA-C [address] [place] [address] 519155 Assigned Gastroenterology Provider 11/01/23 Neil Kent MD [address] [address] Dermatology 11/02/23 [place] [address] [place], [place] [address] Neurological Surgery 12/26/23 Audrey Waite PA-C [address] [place] [address] Physician Him Assistant Dermatology 02/28/24 Valery Veronica PA-C [address] [address] Physician Him Assistant Dermatology 04/10/24 Herminia Hatch MD 1875 [place] [address] Assigned Rheumatology Provider 07/02/24 Jelena David OD [address] [facility] [place] [address] Ophthalmology 08/30/24 [place] [address] [place] [address] Assigned Neuroscience Provider 09/30/24 Maru Man PA-C [address] [place] [address] Physician Him Assistant Dermatology 10/03/24 documented as of this encounter
--- OUTSIDE RECORDS SUMMARY | 2024-10-18 19:30 | XMS_ITS | Encounter Summary ---
Author Organization [facility] Address [address] [place] [address] Care Team Providers Care Healthcare Applications Analyst Name Role Phone Diana Desir [facility] Unavailable Rain Galaviz PA-C Unavailable aTvia Wyatt MD Unavailable [phone] Erica Farrell APRN CYLINDER DIE MACHINE OPERATOR Unavailable Rich Barrett MD Unavailable [phone] Neil Kent MD Unavailable Diana Desir [facility] Unavailable Livan Sharif MD Unavailable Catherine Cm MD Unavailable + Valery Veronica PA-C Unavailable Brea Quinn ELECTRONIC SALES AND SERVICE TECHNICIAN CYLINDER DIE MACHINE OPERATOR Unavailable Brea Quinn ELECTRONIC SALES AND SERVICE TECHNICIAN CYLINDER DIE MACHINE OPERATOR Unavailable Jose Francisco Johnson MD Unavailable Alfonso Renteria MD Unavailable [phone] Esha Grimm PA-C Primary Care Provider aRdha Lomeli APRN CYLINDER DIE MACHINE OPERATOR Unavailable Tommy Davidmao Templetone OD Unavailable Pao Joseph RN Unavailable Unavailable Esha Grimm PA-C Unavailable [phone] Valery Veronica PA-C Unavailable Rey Tay MD Unavailable Rocky Zepeda DO Unavailable Philip Dumont MD Unavailable Meredith Carrera PA-C Unavailable Neil Kent MD Unavailable Juan Pablo Emmanuel MD Unavailable [phone] Audrey Waite PA-C Unavailable Valery Veronica PA-C Unavailable Herminia Hatch MD Unavailable Jelena David OD Unavailable Juan Pablo Emmanuel MD Unavailable [phone] Maru Man PA-C Unavailable Reason for Visit * Reason Onset Date Comments Call Back 08/01/2023 Encounter Details Date Type Department Care Team (Late st Contact Info) Description 08/01/2023 Telephone [facility] [address] [place] [address] Esha Grimm PA-C [address] [place] [address] Call Back Social History Tobacco [...] Score 0 06/20/2023 [facility] - [...] exercise at this level? 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 Seen by [facility] who reviewed imaging and note fracture. Custom wrap made for the patient. Esha Grimm PA-C on 08/02/2023 at 7:49 AM AURANT CREW PERSON * Telephone Encounter - Debbie Shahid - [...] we send this information to you in [facility] [facility] [place] or would you prefer to receive a phone call?: No preference Okay to leave a detailed message?: Yes at Home number on file [phone] (home) AURANT CREW PERSON documented in this encounter Plan of Treatment Upcoming Encounters Date Type Department Care Team (Late st Contact Info) Description 10/22/2024 11:00 AM CDT Office Visit [address] [phone] Maru Man PA-C [address] [place] [address] 10/23/2024 PRE VISIT [facility] Neurology [facility] - [address] [phone] Johnny Penn MD [address] [facility] [place], [place] [address] Previsit 10/23/2024 9:30 AM CDT Office Visit [facility] Neurology [facility] - [address], [address] [place] [phone] [place] [address] [place] [address] Johnny Penn MD [address] [place] [address]29[address] 10/24/2024 4:00 PM CDT Office Visit [facility] [place] [address] [place] [phone] Jelena David, SONJA [address] [facility] [place] [address] 10/31/2024 9:15 AM CDT Virtual Visit [facility] Gastroenterology [address]th [place] [phone] Meredith Carrera PA-C [address] [place] [address] 12/20/2024 2:30 PM CDT Office Visit [facility] [address] [place] [address] Esha Grimm PA-C [address] [place] [address] documented as of this encounter [...] Total Score: 4 06/20/20 23 8:40 AM RESTAURANT CREW PERSON documented as of this encounter Care Teams Healthcare Applications Analyst Relationship Specialty Start Date End Date Esha Grimm PA-C [address] [place] [address] PCP - General Family Medicine 05/04/23 Diana Desir, [facility] [address] [place] [address] Pharmacist Pharmacist 04/17/21 Rain Galaviz PA-C [address] [place] [address] [address] [place] [address] Physician Senior Network Architect Dermatology 04/28/21 Tavia Wyatt MD [address] [place] [address] [place] [address] Dermatology 07/14/21 Erica Farrell APRN CYLINDER DIE MACHINE OPERATOR [address] [place] 53[address]85 Nurse Practitioner Cardiovascular Disease 09/09/21 Rich Barrett MD [address] [place] [address]395 Physician Ophthalmology 01/21/22 Neil Kent MD 500 [place] [address] Dermatology 02/24/22 Diana Desir, [facility] [address] [place] [address] Assigned MTM Pharmacist 04/07/22 Livan Sharif MD [address] [place] 758175 Cardiovascular Disease 05/14/22 Catherine Cm MD [address] [place] [phone] [place] [address] Cardiovascular Disease 07/21/22 Valery Veronica, PA-C [address] [place] [address] Physician Senior Network Architect Dermatology 07/21/22 Brea Quinn APRN CYLINDER DIE MACHINE OPERATOR [address] [place] [address] 214105 Nurse Practitioner Dermatology 09/21/22 Brea Quinn APRN CYLINDER DIE MACHINE OPERATOR 6401 [place] [address] Assigned Surgical Provider 10/09/22 05/01/24 [place] [address] [address] Assigned Musculoskeletal Provider 10/09/22 05/01/24 Alfonso Renteria MD [address] [facility] 200 [place] [address] Assigned Neuroscience Provider 04/02/23 09/29/24 Radha Lomeli APRN CYLINDER DIE MACHINE OPERATOR [address] [address] Assigned Heart and Vascular Provider 05/28/23 Jelena David OD [address] [place] [address] Ophthalmology 06/15/23 Pao Joseph, RN Personal Advocate & Liaison (PAL) Nurse 08/01/23 11/07/23 Esha Grimm PA-C [address] [place] [phone] Assigned PCP 07/16/23 Valrey Veronica PA-C [address] [place] [address] 815715 Physician Senior Network Architect Dermatology 09/19/23 Rey Tay MD [address] [place] [address] 562185 MD Gastroenterology 09/20/23 Rocky Zepeda DO [address] [place] [address] 030855 Physician Gastroenterology 09/20/23 Philip Dumont MD [address] [place] [address] 847365 Physician Ophthalmology 09/22/23 Meredith Carrera PA-C [address] [place] [address] 104405 Assigned Gastroenterology Provider 11/01/23 Neil Kent MD [address] [place] [address] 219450 Dermatology 11/02/23 [place] [address] [place] [address] Neurological Surgery 12/26/23 Audrey Waite PA-C 500 [place] [address] Physician Senior Network Architect Dermatology 02/28/24 Valery Veronica PA-C 259604 [facility] [address] Physician Senior Network Architect Dermatology 04/10/24 Herminia Hatch MD [address]75 [place], [place] 93773125 Assigned Rheumatology Provider 07/02/24 Jelena David OD [address] [place] [address] Ophthalmology 08/30/24 [place] [address] [place] [address] Assigned Neuroscience Provider 09/30/24 Maru Man PA-C [address] [address] Physician Senior Network Architect Dermatology 10/03/24 documented as of this encounter
--- OUTSIDE RECORDS SUMMARY | 2024-10-18 19:30 | XMS_ITS | Encounter Summary ---
Author Organization [place] Address [address] [place] [address] Care Team Providers Care Toll Settlement Clerk Name Role Phone Diana Desir [facility] Unavailable Rain GalavizC Unavailable Tavia Wyatt MD Unavailable Erica Farrell APRN VASCULAR MANAGER Unavailable Rich Barrett MD Unavailable [phone] Neil Kent MD Unavailable DesirKendrickDiana Stanislav [facility] Unavailable [phone] Livan Sharif MD Unavailable Catherine Cm MD Unavailable + Valery Veronica-C Unavailable Brea Quinn MANDOLIN REPAIR PERSON VASCULAR MANAGER Unavailable Alfonso Renteria MD Unavailable [phone] Esha GrimmC Primary Care Provider Radha Lomeli MANDOLIN REPAIR PERSON VASCULAR MANAGER Unavailable Jelena David OD Unavailable [place], Esha M PA-C Unavailable [phone] Valery Veronica PA-C Unavailable Rey Tay MD Unavailable Rocky Zepeda DO Unavailable Philip Dumont MD Unavailable Meredith Carrera PA-C Unavailable [phone] Neil Kent MD Unavailable Juan Pablo Emmanuel MD Unavailable Audrey Waite PA-C Unavailable [phone] Valery Veronica PA-C Unavailable Herminia Hatch MD Unavailable Jelena David OD Unavailable Juan Pablo Emmanuel MD Unavailable [phone] Maru Man PA-C Unavailable [phone] Encounter Details Date Type Department Care Team (Late st Contact Info) Description 06/21/2024 [facility] Medical Advice [address] [address] Antonella Eldridge RN Social History [...] you attend [facility] or anabaptism services? 1 to 4 times [...] Answer Date Recorded PHQ-2 Score 1 02/07/2024 [facility] - Occupational Stress Questionnaire Answer Date [...] at this level? 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 Gender Identity Female 03/02/2021 5:45 PM CDT Sexual Orientation Straight 02/28/2020 12 :51 AM CDT documented as of this encounter Plan of Treatment Upcoming Encounters Date Type Department Care Team (Late st Contact Info) Description 10/22/2024 11:00 AM CDT Office Visit [address] [phone] Maru Man PA-C [address] 226410 10/23/2024 PRE VISIT [facility] [address], [address] [place] [address] Johnny Penn MD [address] [facility] [place] [address] Previsit 10/23/2024 9:30 AM CDT Office Visit [facility] Neu[facility] [address] [facility], [address] [place] [phone] [place] [address] [place] [address] Johnny Penn MD [address] [facility] [place] [address] 10/24/2024 4:00 PM CDT Office Visit [facility] [address] [facility] [address] [place] [phone] Jelena David, [address] [place] [address] 10/31/2024 9:15 AM CDT Virtual Visit [facility] Gastroenterology Clinic [address] [phone] Meredith Carrera PA-C [address] [place] [address] 12/20/2024 2:30 PM CDT Office Visit [facility] [address] [place] [phone] Esha Grimm PA-C [address] [place] [address] documented as of this encounter Visit Diagnoses Not on filedocumented in this encounter Additional Health Concerns Infection Onset Date Last Indicated Resolved Time Rule Out COVID-19 10/04/2024 10/04/2024 10/05/2024 9:42 AM CDT Assessment Noted Time PHQ-9 Depression Total Score: 3 02/07/20 24 9:33 AM CDT documented as of this encounter Care Teams Toll Settlement Clerk Relationship Specialty Start Date End Date Esha Grimm PA-C [address] [place] [address] PCP - General Family Medicine 05/04/23 Diana Desir, [facility] [employer] [address] Pharmacist Pharmacist 04/17/21 Rain Galaviz PA-C [address] [place] [address] [address] [place] [address] Physician Aadc Plans Staff Officer Dermatology 04/28/21 Tavia Wyatt MD [address] [place] [address] [address] [place] [address] Dermatology 07/14/21 Erica Farrell APRN CNP [address] [place], [place] [address] Nurse Practitioner Cardiovascular Disease 09/09/21 Rich Barrett MD [address] [facility] [place] [address] Physician Ophthalmology 01/21/22 Neil Kent MD 500 [place], [place] 953705 Dermatology 02/24/22 Diana Desir, [facility] [place] [address] Assigned MTM Pharmacist 04/07/22 Livan Sharif MD [address] [facility] [address] [place] 76[address]85 Cardiovascular Disease 05/14/22 Catherine Cm MD [address] [facility] [place] 313515 Cardiovascular Disease 07/21/22 Valery Veronica PA-C 909 [place], [place] 260255 Physician Aadc Plans Staff Officer Dermatology 07/21/22 Brea Quinn APRN VASCULAR MANAGER 500 [place], [place] 2536[address] Nurse Practitioner Dermatology 09/21/22 Alfonso Renteria MD 57[address] [facility] 200 [place], [place] 2849[address] Assigned Neuroscience Provider 04/02/23 09/29/24 Radha Lomeli APRN VASCULAR MANAGER [address] [facility] [place] [address]295 Assigned Heart and Vascular Provider 05/28/23 Jelena David OD [address] [facility] [place] [address] Ophthalmology 06/15/23 Esha Grimm PA-C [address] [place] [address] Assigned PCP 07/16/23 Valery Veronica PA-C [address] [place] [address] Physician Aadc Plans Staff Officer Dermatology 09/19/23 Rey Tay MD [address] [place] [address] MD Gastroenterology 09/20/23 Rocky Zepeda DO [address] [place] [address] 824785 Physician Gastroenterology 09/20/23 Philip Dumont MD [address] [place] [address] Physician Ophthalmology 09/22/23 Meredith Carrera PA-C [address] [place] [address] Assigned Gastroenterology Provider 11/01/23 Neil Kent MD [address] [address] Dermatology 11/02/23 [place] [address] [address] Neurological Surgery 12/26/23 Audrey Waite PA-C [address] [place] [address] Physician Aadc Plans Staff Officer Dermatology 02/28/24 Valery Veronica PA-C [id number] [address] [place] [place] [address] Physician Aadc Plans Staff Officer Dermatology 04/10/24 Herminia Hatch MD [facility]5 [place], [place] [id number] Assigned Rheumatology Provider 07/02/24 Jelena David OD [address] [place] [address] Ophthalmology 08/30/24 [place] [address] [place], [place] [address] Assigned Neuroscience Provider 09/30/24 Maru Man PA-C [address] [address] Physician Aadc Plans Staff Officer Dermatology 10/03/24 documented as of this encounter
--- OUTSIDE RECORDS SUMMARY | 2024-10-18 19:30 | XMS_ITS | Encounter Summary ---
Author Organization [place] Address [address] [place] [address] Care Team Providers Care Buyer Internship Name Role Phone Diana Desir Stanislav [facility] Unavailable Rain Galaviz PA-C Unavailable [phone] Tavia Wyatt MD Unavailable Erica Farrell APRN ELECTRICIAN MAINTENANCE Unavailable Rich Barrett MD Unavailable [phone] Neil Kent MD Unavailable ThangKendrickDiana Stanislav [facility] Unavailable [phone] Livan Sharif MD Unavailable Catherine Cm MD Unavailable + Valery Veronica-C Unavailable Brea Quinn TOBACCO CURER ELECTRICIAN MAINTENANCE Unavailable [phone] Esha Grimm PA-C Primary Care Provider Radha Lomeli APRN ELECTRICIAN MAINTENANCE Unavailable Jelena David OD Unavailable Esha Grimm PA-C Unavailable [phone] Valery Veronica PA-C Unavailable Rey Tay MD Unavailable Duane Rockyanne [facility] Unavailable Philip Dumont MD Unavailable Meredith CarreraC Unavailable [phone] Neil Kent MD Unavailable Juan Pablo Emmanuel MD Unavailable [phone] Audrey Waite-C Unavailable [phone] Valery Veronica-C Unavailable Herminia Hatch MD Unavailable Jelena David OD Unavailable Juan Pablo Emmanuel MD Unavailable Maru ManC Unavailable [phone] Reason for Visit * Reason Onset Date Comments Appointment 10/18/2024 10/31/2024 Encounter Details Date Type Department Care Team (Late st Contact Info) Description 10/18/2024 [facility] [address] [place] [address] Meredith Carrera PA-C [address] [place] [address] Appointment (10/31/2024) Social History Tobacco Use Types Packs/Day Years [...] 1 02/07/2024 [facility] - Occupational Stress [...] exercise at this level? 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 Vocal Music Instructor called and talked with the Pt. Pt was okay with the appointment time change to 9:15 AM. documented in this encounter Plan of Treatment Upcoming Encounters Date Type Department Care Team (Late st Contact Info) Description 10/22/2024 11:00 AM CDT Office Visit [facility] [address] [phone] Maru Man PA-C [address] [address] 10/23/2024 PRE VISIT [facility] Neurology [address] [phone] Johnny Penn MD [address] [place] [address] Previsit 10/23/2024 9:30 AM CDT Office Visit [facility] Neurology [address] [phone] [place] [address] [place], [place] [address] Johnny Penn MD [address] [place] [address] 10/24/2024 4:00 PM CDT [facility] [address] [facility] [address] [place] [phone] Jelena David, OD [address] [facility] [place] [address] 10/31/2024 9:15 AM CDT Virtual Visit [facility] Gastroenterology Clinic [address] 4th [place] [phone] Meredith Carrera PA-C [address] [place] [address] 12/20/2024 2:30 PM CDT Office Visit [facility] [address] [place] [address] Esha Grimm PA-C [address] [place] [address] documented as of this encounter Visit Diagnoses Not on filedocumented in this encounter Additional Health Concerns Assessment Noted Time PHQ-9 Depression Total Score: 3 02/07/20 24 9:33 AM CDT documented as of this encounter Care Teams Buyer Internship Relationship Specialty Start Date End Date Esah Grimm PA-C [id number] [place] [address] PCP - General Family Medicine 05/04/23 [facility] 3033 [place], [place] 277266 Pharmacist Pharmacist 04/17/21 Rain Galaviz PA-C [address] [place] [address] [address] [facility] [address] Physician Sales Service Route Manager Dermatology 04/28/21 Tavia Wyatt MD [address] [place] [address] [address] [facility] [place] [address] Dermatology 07/14/21 Erica Farrell APRN ELECTRICIAN MAINTENANCE 6[address] [facility] [address] [place] [address] Nurse Practitioner Cardiovascular Disease 09/09/21 Rich Barrett MD [address] [place] [address] Physician Ophthalmology 01/21/22 Neil Kent MD 500 [place] [address] Dermatology 02/24/22 [facility] [address] [place] [address] Assigned MTM Pharmacist 04/07/22 Livan Sharif MD [address] [place] [address] [address] Cardiovascular Disease 05/14/22 Catherine Cm MD [address] [address] Cardiovascular Disease 07/21/22 Valery Veronica, PA-C [address] [place] [address] Physician Sales Service Route Manager Dermatology 07/21/22 Brea Quinn APRN ELECTRICIAN MAINTENANCE 500 [place] [address] Nurse Practitioner Dermatology 09/21/22 Radha Lomeli APRN ELECTRICIAN MAINTENANCE [address] [place], [place] 839455 Assigned Heart and Vascular Provider 05/28/23 Jelena David OD [address] [facility] [place] [address] MD Ophthalmology 06/15/23 Esha Grimm PA-C [address] [place] [phone] Assigned PCP 07/16/23 Valery Veronica PA-C [address] [place] [address] 181565 Physician Sales Service Route Manager Dermatology 09/19/23 Rey Tay MD [address] [place] [address] 006135 Gastroenterology 09/20/23 Rocky Zepeda DO [address] [place] [address] 647905 Physician Gastroenterology 09/20/23 Philip Dumont MD [address] [place] [address] 299065 Physician Ophthalmology 09/22/23 Meredith Carrera PA-C [address] [place] [address] 078925 Assigned Gastroenterology Provider 11/01/23 Neil Kent MD [address] [address] Dermatology 11/02/23 [place] [address] [place] [address] Neurological Surgery 12/26/23 Audrey Waite PA-C [address] [place] [address] Physician Sales Service Route Manager Dermatology 02/28/24 Valery Veronica PA-C 067120 [place], [place] [address] Physician Sales Service Route Manager Dermatology 04/10/24 Herminia Hatch MD [address] [place] [address] Assigned Rheumatology Provider 07/02/24 Jelena David OD [address] [facility] [address] Ophthalmology 08/30/24 [place] [address] [place] [address] Assigned Neuroscience Provider 09/30/24 Maru Man PA-C [address] [address] Physician Sales Service Route Manager Dermatology 10/03/24 documented as of this encounter
--- OUTSIDE RECORDS SUMMARY | 2024-10-18 19:30 | XMS_ITS | Encounter Summary ---
Author Organization [place] Address [address] [place] [address] Care Team Providers Care Clinical Account Executive Name Role Phone Diana Desir Stanislav [facility] Unavailable Rain Galaviz PA-C Unavailable [phone] Tavia Wyatt MD Unavailable Erica Farrell APRN X RAY EQUIPMENT TESTER Unavailable Rich Barrett MD Unavailable [phone] Neil Kent MD Unavailable ThangKendrickDiana Stanislav [facility] Unavailable [phone] Livan Sharif MD Unavailable Catherine Cm MD Unavailable + Valery Veronica-C Unavailable Brea Quinn SLUNK SKINNER X RAY EQUIPMENT TESTER Unavailable Esha Grimm PA-C Primary Care Provider Radha Lomeli APRN X RAY EQUIPMENT TESTER Unavailable Jelena David OD Unavailable Esha Grimm PA-C Unavailable [phone] Valery Veronica PA-C Unavailable Rey Tay MD Unavailable Duane Rockyanne [place] Unavailable Philip Dumont MD Unavailable [phone] Meredith Carrera PA-C Unavailable [phone] Neil Kent MD Unavailable Juan Pablo mEmanuel MD Unavailable [phone] Audrey Waite PA-C Unavailable [phone] Valery Veronica PA-C Unavailable Herminia Hatch MD Unavailable Jelena David OD Unavailable Juan Pablo Emmanuel MD Unavailable [phone] Maru Man-C Unavailable [phone] Encounter Details Date Type Department Care Team (Late st Contact Info) Description 10/01/2024 [facility] Medical Advice [facility] Heart [address] [place] [address] Marija Bailey RN Social History Tobacco Use Types Packs/Day [...] you attend [facility] or synagogue services? 1 to 4 times [...] exercise at this level? 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 Gender Identity Female 03/02/2021 5:45 PM CDT Sexual Orientation Straight 02/28/2020 12 :51 AM CDT documented as of this encounter Plan of Treatment Upcoming Encounters Date Type Department Care Team (Late st Contact Info) Description 10/22/2024 11:00 AM CDT Office Visit [address] [phone] Maru Man PA-C [address] [place] [address] 10/23/2024 PRE VISIT [facility] Neurology [facility] - [address], [address] [place] [address] Johnny Penn MD [address] [place] [address] Previsit 10/23/2024 9:30 AM CDT Office Visit [facility] Neurology Clinics - [place] [address] [facility], [address] [place] [phone] [place] [address] [place] [address] Johnny Penn MD [address] [facility] [place] [address] 10/24/2024 4:00 PM CDT Office Visit [facility] [address] [facility] [address] [place] [phone] Jelena David, [address] [facility] [place] [address] 10/31/2024 9:15 AM CDT Virtual Visit [facility] Gastroenterology Clinic [address] [phone] Meredith Carrera PA-C [address] [place] [address] 426475 12/20/2024 2:30 PM CDT Office Visit [facility] [address] [place] [address] Esha Grimm PA-C [address] [place] [address] documented as of this encounter Visit Diagnoses Not on filedocumented in this encounter Additional Health Concerns Infection Onset Date Last Indicated Resolved Time Rule Out COVID-19 10/04/2024 10/04/2024 10/05/2024 9:42 AM CDT Assessment Noted Time PHQ-9 Depression Total Score: 3 02/07/20 24 9:33 AM CDT documented as of this encounter Care Teams Clinical Account Executive Relationship Specialty Start Date End Date Esha Grimm PA-C [address] [place] [address] PCP - General Family Medicine 05/04/23 Diana Desir, [facility] [address] [place] [address] Pharmacist Pharmacist 04/17/21 Rain Galaviz PA-C [address] [place] [address] [address] [place] [address] Physician Temporary Help Agency Referral Clerk Dermatology 04/28/21 Tavia Wyatt MD [address] [place] [address] [address] [facility] [address] Dermatology 07/14/21 Erica Farrell APRN X RAY EQUIPMENT TESTER [address] [place], [place] 47[address] Nurse Practitioner Cardiovascular Disease 09/09/21 Rich Barrett MD [address] [place], [place] [address] Physician Ophthalmology 01/21/22 Neil Kent MD 500 [place], [place] 7[address]265 Dermatology 02/24/22 Diana Desir, [facility] [address] [place] [address] Assigned MTM Pharmacist 04/07/22 Livan Sharif MD [address] [place] [address] Cardiovascular Disease 05/14/22 Catherine Cm MD [address] [place] 8[address]475 Cardiovascular Disease 07/21/22 Valery Veronica PA-C [address] [place] [address] 860505 Physician Temporary Help Agency Referral Clerk Dermatology 07/21/22 Brea Quinn APRN X RAY EQUIPMENT TESTER [address] [place] [address] 115805 Nurse Practitioner Dermatology 09/21/22 Radha Lomeli APRN X RAY EQUIPMENT TESTER [address] [place] 304925 Assigned Heart and Vascular Provider 05/28/23 Jelena David OD [facility] [facility] [place] [address] Ophthalmology 06/15/23 Esha Grimm PA-C [address] [place] [address]74[address] Assigned PCP 07/16/23 Valery Veronica PA-C [address] [place] [address] 290085 Physician Temporary Help Agency Referral Clerk Dermatology 09/19/23 Rey Tay MD [address] [place] [address] 385095 MD Gastroenterology 09/20/23 Rocky Zepeda DO 9 [place], [place] 6[address]055 Physician Gastroenterology 09/20/23 Philip Dumont MD [address] [place] [address] Physician Ophthalmology 09/22/23 Meredith Carrera PA-C [address] [place] [address] 233145 Assigned Gastroenterology Provider 11/01/23 Neil Kent MD [address] 768760 MD Dermatology 11/02/23 [place] [address] [place] [address] 189[address] Neurological Surgery 12/26/23 Audrey Waite PA-C [address] [place] [address] Physician Temporary Help Agency Referral Clerk Dermatology 02/28/24 Valery Veronica PA-C 816383 [place], [place] [address] Physician Temporary Help Agency Referral Clerk Dermatology 04/10/24 Herminia Hatch MD [address] [place] [address] Assigned Rheumatology Provider 07/02/24 Jelena David OD [address] [facility] [place] [address] Ophthalmology 08/30/24 [place] [address] [place] [address] Assigned Neuroscience Provider 09/30/24 Maru Man PA-C [address] [place] [address] Physician Temporary Help Agency Referral Clerk Dermatology 10/03/24 documented as of this encounter
--- OUTSIDE RECORDS SUMMARY | 2024-10-18 19:30 | XMS_ITS | Encounter Summary ---
Author Organization [facility] Address [address] [place] [address] Care Team Providers Care Screen Vent Binder Name Role Phone Diana Desir [facility] Unavailable Rain Galaviz PA-C Unavailable Tavia Wyatt MD Unavailable Erica Farrell APRN ETCHER APPRENTICE PHOTOENGRAVING Unavailable Rich Barrett MD Unavailable [phone] Neil Kent MD Unavailable Diana Desir [facility] Unavailable Livan Sharif MD Unavailable Catherine Cm MD Unavailable + Valery Veronica PA-C Unavailable [phone] Brea Quinn ACCOUNTING SYSTEM EXPERT ETCHER APPRENTICE PHOTOENGRAVING Unavailable Brea Quinn ACCOUNTING SYSTEM EXPERT ETCHER APPRENTICE PHOTOENGRAVING Unavailable Jose Francisco Johnson MD Unavailable Sydnie Martinez RN Unavailable Unavailable Alfonso Renteria MD Unavailable [phone] Esha Grimm PA-C Primary Care Provider Radha Lomeli APRN ETCHER APPRENTICE PHOTOENGRAVING Unavailable FrankieJelenae OD Unavailable Pao Joseph RN Unavailable Unavailable AlfaEsha Adam PA-C Unavailable [phone] Valery Veronica PA-C Unavailable Rey Tay MD Unavailable Rocky Zepeda DO Unavailable Philip Dumont MD Unavailable Meredith Carrera PA-C Unavailable Neil Kent MD Unavailable Juan Pablo Emmanuel MD Unavailable Audrey Waite PA-C Unavailable Valery Veronica PA-C Unavailable [phone] Herminia Hatch MD Unavailable Jelena David OD Unavailable Juan Pablo Emmanuel MD Unavailable [phone] Maru Man PA-C Unavailable Encounter Details Date Type Department Care Team (Late st Contact Info) Description 07/29/2023 MyC Medical Advice [address] [address] Pao Joseph, RN Social History [...] Answer Date Recorded PHQ-2 Score 0 06/20/2023 [facility] [place] - Occupational Stress [...] exercise at this level? 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 Gender Identity Female 03/02/2021 5:45 PM CDT Sexual Orientation Straight 02/28/2020 12 :51 AM CDT documented as of this encounter Plan of Treatment Upcoming Encounters Date Type Department Care Team (Late st Contact Info) Description 10/22/2024 11:00 AM CDT Office Visit [facility] [address] [phone] Maru Man PA-C [address] [address] 10/23/2024 PRE [facility]ISIT [facility] - [address], [address] [place] [address] Johnny Penn, MD [address] [place] [address] Previsit 10/23/2024 9:30 AM CDT [facility] [address] [facility], [address] [place] [phone] [place] [address] [place] [address] Johnny Penn MD [address] [place] [address]135 10/24/2024 4:00 PM CDT Office Visit [facility] [address] [facility] [address] [place] [phone] Jelena David, [address] [facility] [place] [address] 10/31/2024 9:15 AM CDT Virtual Visit [facility] [address] [phone] Meredith Carrera PA-C [address] [place] [address] 12/20/2024 2:30 PM CDT Office Visit [facility] [address] [place] [address] Esha Grimm PA-C [address] [place] [address] documented as of this encounter [...] Total Score: 4 06/20/20 23 8:40 AM SOA ENGINEER documented as of this encounter Care Teams Screen Vent Binder Relationship Specialty Start Date End Date Esha Grimm PA-C [address] [place] [address] PCP - General Family Medicine 05/04/23 Diana Desir, [facility] [address] [place] [address] Pharmacist Pharmacist 04/17/21 Rain Galaviz PA-C [address] [place] [address] [address] [facility] [address] Physician Car Rental Deliverer Dermatology 04/28/21 Tavia Wyatt MD [address] [place] [address] [address] [facility] [place] [address] Dermatology 07/14/21 Erica Farrell APRN ETCHER APPRENTICE PHOTOENGRAVING [address] [place] [address] Nurse Practitioner Cardiovascular Disease 09/09/21 Rich Barrett MD [address] [place] [address] Physician Ophthalmology 01/21/22 Neil Kent MD 500 [place] [address] Dermatology 02/24/22 [facility] 3033 [place] [address] Assigned [place] Pharmacist 04/07/22 Livan Sharif MD [address] 0[address]100 [place] [address] Cardiovascular Disease 05/14/22 Catherine Cm MD [address] [address] Cardiovascular Disease 07/21/22 Valery Veronica, PA-C [address] [place] [address] Physician Car Rental Deliverer Dermatology 07/21/22 Brea Quinn APRN ETCHER APPRENTICE PHOTOENGRAVING 500 [place] [address] Nurse Practitioner Dermatology 09/21/22 Brea Quinn APRN ETCHER APPRENTICE PHOTOENGRAVING [address] [place] [address] Assigned Surgical Provider 10/09/22 05/01/24 [place] [address] [place] [address] Assigned Musculoskeletal Provider 10/09/22 05/01/24 JuanSydnie RN Personal Advocate & Liaison (PAL) Family Medicine 03/28/23 07/31/23 Alfonso Renteria MD [address] [facility] [address] [place] [address] Assigned Neuroscience Provider 04/02/23 09/29/24 Radha Lomeli APRN ETCHER APPRENTICE PHOTOENGRAVING [address] [facility] [address] [place] [address] Assigned Heart and Vascular Provider 05/28/23 Jelena David OD [address] [place] [address] Ophthalmology 06/15/23 Pao Joseph, VJ Personal Advocate & Liaison (PAL) Nurse 08/01/23 11/07/23 Esha Grimm PA-C [address] [place] [address] Assigned PCP 07/16/23 Valery Veronica PA-C [address] [place] [address] Physician Car Rental Deliverer Dermatology 09/19/23 Rey Tay MD [address] [place] [address] 228545 Gastroenterology 09/20/23 Rocky Zepeda DO [address] [place] [address] 081175 Physician Gastroenterology 09/20/23 Philip Dumnot MD [address] [place] [address] 897195 Physician Ophthalmology 09/22/23 Meredith Carrera PA-C 909 [place] [address] Assigned Gastroenterology Provider 11/01/23 Niel Kent MD [address] [place] [address] Dermatology 11/02/23 [place] [address] RA[address] [place] [address] Neurological Surgery 12/26/23 Audrey Waite PA-C [address] [place] [address] Physician Car Rental Deliverer Dermatology 02/28/24 Valery Veronica PA-C 077842 [place], [place] [address] Physician Car Rental Deliverer Dermatology 04/10/24 Herminia Hatch MD [facility] [place], [place] 635[address] Assigned Rheumatology Provider 07/02/24 Jelena David OD [address] [place] [address] [place] [address] Ophthalmology 08/30/24 [place] [address] [place] [address] Assigned Neuroscience Provider 09/30/24 Maru Man PA-C [address] [place] [address] Physician Car Rental Deliverer Dermatology 10/03/24 documented as of this encounter
--- OUTSIDE RECORDS SUMMARY | 2024-10-18 19:30 | XMS_ITS | Encounter Summary ---
Author Organization [facility] Address [address] [place] [address] Care Team Providers Care Angle Dozer Operator Name Role Phone Diana Desir Stanislav [facility] Unavailable Rain Galaviz PA-C Unavailable Tavia Wyatt MD Unavailable Erica Farrell APRN PROMOTIONAL REPRESENTATIVE Unavailable Rich Barrett MD Unavailable [phone] Neil Kent MD Unavailable ThangKendrickDiana Stanislav [facility] Unavailable [phone] Livan Sharif MD Unavailable Catherine Cm MD Unavailable + Valery Veronica-C Unavailable Brea Quinn HEMATOLOGY TECHNOLOGIST PROMOTIONAL REPRESENTATIVE Unavailable [phone] Esha Grimm PA-C Primary Care Provider Radha Lomeli APRN PROMOTIONAL REPRESENTATIVE Unavailable Jelena David OD Unavailable Esha Grimm PA-C Unavailable [phone] Valery Veronica PA-C Unavailable [phone] Rey Tay MD Unavailable DuaneRocky Unavailable Philip Dumont MD Unavailable [phone] Meredith Carrera PA-C Unavailable [phone] Neil Kent MD Unavailable Juan Pablo Emmanuel MD Unavailable Audrey Waite PA-C Unavailable [phone] Valery Veronica PA-C Unavailable Herminia Hatch MD Unavailable Jelena David OD Unavailable Juan Pablo Emmanuel MD Unavailable [phone] Maru Man-C Unavailable [phone] Reason for Visit * Reason Onset Date Comments Refill Request 10/18/2024 Triamcinolone Ac etonide 0.1% ointment Encounter Details Date Type Department Care Team (Late st Contact Info) Description 10/18/[address] [address] Brea Quinn APRN [address] [address] Refill Request (Triamcinolone Acetonide 0.1% ointment) Social History Tobacco Use Types [...] Answer Date Recorded PHQ-2 Score 1 02/07/2024 [facility] Occupat ional [...] exercise at this level? 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 Patient is scheduled With Dermatology (Maru Man PA-C) 10/22/2024 Antonella Kidd RN BSN [facility] Dermatology [phone] * Telephone Encounter - Erum Mcginnis LPN - 10/18/2024 8:06 AM CDT Last Written Prescription Date: 06/21/24 Last Fill Quantity:80 gm , # refills: 0 Last office visit: Visit date not found ; last virtual visit: Visit date not found with prescribingprovider: Future Office Visit: 10/22/24 Next 5 appointments (look out 90 days) Dec 20, 2024 2:30 PM (Arrive by 2:10 PM) Provider Visit with Esha Grimm PA-C [facility] ([facility] [address] [place] [address] Requested Prescriptions Pending Prescriptions Disp Refills triamcinolone (KENALOG) 0.1 % external ointment 80 g 0 Sig: Apply topically 2 times daily. To psoriasis on body or arms/legs until healed then stop There is no refill protocol information for this order Seeing provider Maru Man 10/22/24. documented in this encounter Plan of Treatment Upcoming Encounters Date Type Department Care Team (Late st Contact Info) Description 10/22/2024 11:00 AM CDT Office Visit [address] [phone] Maru Man PA-C [address] [place] [address] 10/23/2024 PRE VISIT [facility] Neurology Clinics - [address], [address] [place] [phone] Johnny Penn MD [address] [facility] [place] [address] Previsit 10/23/2024 9:30 AM CDT Office Visit [facility] - [place] 65[address] [facility], [address] [place] [phone] [place] [address] [place] [address] Johnny Penn MD 65[address] [facility] [place] 58[address] 10/24/2024 4:00 PM CDT Office Visit [facility] [address] [place] [phone] Jelena David, [address] [facility] [place] [address] 10/31/2024 9:15 AM CDT Virtual Visit [facility] Gastroenterology Clinic [address] [phone] Meredith Carrera PA-C [address] [place] [address] 513445 12/20/2024 2:30 PM CDT Office Visit [facility] [address] [place] [address] Esha Grimm PA-C [id number] [place] [address] documented as of this encounter Visit Diagnoses Diagnosis Psoriasis Other psoriasis documented in this encounter Additional Health Concerns Assessment Noted Time PHQ-9 Depression Total Score: 3 02/07/20 24 9:33 AM CDT documented as of this encounter Care Teams Angle Dozer Operator Relationship Specialty Start Date End Date Esha Grimm PA-C [id number] [place] [phone] PCP - General Family Medicine 05/04/23 Diana Desir, [facility] [address] [place] [address] Pharmacist Pharmacist 04/17/21 Rain Galaviz PA-C [address] [place] [address] [address] [facility] [address] Physician Utilities Equipment Repairer Dermatology 04/28/21 Tavia Wyatt MD [address] [place] [address] DR [facility] [place] [address] Dermatology 07/14/21 Erica Farrell APRN PROMOTIONAL REPRESENTATIVE [address] [place] [address] Nurse Practitioner Cardiovascular Disease 09/09/21 Rich Barrett MD [address] [place] [address] Physician Ophthalmology 01/21/22 Neil Kent MD 500 [place], [place] 014815 Dermatology 02/24/22 Diana Desir, [facility] [address] [place] [address] Assigned MTM Pharmacist 04/07/22 Livan Sharif MD [address] [place] [address] Cardiovascular Disease 05/14/22 Catherine Cm MD [address] [place], [place] [address] Cardiovascular Disease 07/21/22 Valery Veronica PA-C [address] [place] [address] 722135 Physician Utilities Equipment Repairer Dermatology 07/21/22 Brea Quinn APRN PROMOTIONAL REPRESENTATIVE [address] [place] [address] Nurse Practitioner Dermatology 09/21/22 Radha Lomeli APRN PROMOTIONAL REPRESENTATIVE [address] [place], [place] 259865 Assigned Heart and Vascular Provider 05/28/23 Jelena David OD [facility] [facility] [place] [address] Ophthalmology 06/15/23 Esha Grimm PA-C [address] [place] [phone] Assigned PCP 07/16/23 Valery Veronica, [place] [address] [place] [address] 153925 Physician Utilities Equipment Repairer Dermatology 09/19/23 Rey Tay MD 9 [place], [place] 905[address] Gastroenterology 09/20/23 Rocky Zepeda DO [address] [place] [address] Physician Gastroenterology 09/20/23 Philip Dumont MD [address] [place] [address] Physician Ophthalmology 09/22/23 Meredith Carrera PA-C [address] [place] [address] Assigned Gastroenterology Provider 11/01/23 Neil Kent MD [address] [place] [address] MD Dermatology 11/02/23 [place] [address] [place] [address] Neurological Surgery 12/26/23 Audrey [place]ite PA-C [address] [place] [address] Physician Utilities Equipment Repairer Dermatology 02/28/24 Valery Veronica PA-C [id number] [place] [address] Physician Utilities Equipment Repairer Dermatology 04/10/24 Herminia Hatch MD [address] [place] [address] 57326125 Assigned Rheumatology Provider 07/02/24 [place] [address] [place] [address] [place] [address] Ophthalmology 08/30/24 [place] [address] [address] Assigned Neuroscience Provider 09/30/24 Maru Man PA-C [address] [address] Physician Utilities Equipment Repairer Dermatology 10/03/24 documented as of this encounter
--- OUTSIDE RECORDS SUMMARY | 2024-10-18 19:30 | XMS_ITS | Encounter Summary ---
Author Organization [facility] Address [address] [place] [address] Care Team Providers Care Care Worker Name Role Phone Diana Desir [facility] Unavailable Rain Galaviz PA-C Unavailable Tavia Wyatt MD Unavailable [phone] Erica Farrell APRN LAWN SPRINKLER INSTALLER Unavailable Rich Barrett MD Unavailable [phone] Neil Kent MD Unavailable Diana Desir [facility] Unavailable Livan Sharif MD Unavailable Catherine Cm MD Unavailable + Valery Veronica PA-C Unavailable Brea Quinn STRADDLE CARRIER OPERATOR LAWN SPRINKLER INSTALLER Unavailable Brea Quinn STRADDLE CARRIER OPERATOR LAWN SPRINKLER INSTALLER Unavailable Jose Francisco Johnson MD Unavailable Alfonso Renteria MD Unavailable [phone] Esha Grimm PA-C Primary Care Provider Radha Lomeli APRN LAWN SPRINKLER INSTALLER Unavailable FrankieJelenae OD Unavailable Pao Joseph RN Unavailable Unavailable Esha Grimm PA-C Unavailable [phone] Valery Veronica PA-C Unavailable Rey Tay [...] Team (Late st Contact Info) Description 08/10/2023 [facility] [address] [place] [phone] Esha Grimm PA-C [address] [place] [address] Social History Tobacco Use Types [...] 06/20/2023 [facility] of Occupat [...] exercise at this level? 30 min 03/10/2023 [place] Depression Scale Answer Date Recorded [place] Depression Score 5 01/14/2021 Last EPDS Self [...] PM CDT Legal Sex Female 4:13 AM TOW FEEDER Gender Identity Female 03/02/2021 5:45 PM CDT Sexual Orientation Straight 02/28/2020 12 :51 AM CDT documented as of this encounter Miscellaneous Notes * Telephone Encounter - Asiya Reddy RN - 08/10/2023 11:40 AM TOW FEEDER Esha- see [employer] message below. Patient did call to see if E-Visit would be addressed today. No immediate concern at this time. Advised UC if needed sooner. Asiya Reddy RN FEEDER documented in this encounter Plan of Treatment Upcoming Encounters Date Type Department Care Team (Taylor munoz Contact Info) Description 10/22/2024 11:00 AM CDT Office Visit [facility] [address] [phone] Maru Man PA-C [address] [address] 10/23/2024 PRE VISIT [facility] - [address] [phone] Johnny Penn MD [address] 934025 Previsit 10/23/2024 9:30 AM CDT Office Visit [facility] - [address], [address] [phone] [place] [address] [place], [place] [address] Johnny Penn MD [address] [place] [address] 10/24/2024 4:00 PM CDT [facility] [address] [facility] [address] [place] [phone] Jelena David, [address] [facility] [place] [address] 10/31/2024 9:15 AM CDT Virtual Visit [facility] [address] 4th [place] [phone] Meredith Carrera PA-C [address] [place] [address] 12/20/2024 2:30 PM CDT Office Visit [facility] [address] [place] [phone] Esha Grimm PA-C [address] [place] [address] documented as of this encounter [...] Score: 4 06/20/20 23 8:40 AM TOW FEEDER documented as of this encounter Care Teams Care Worker Relationship Specialty Start Date End Date Esha Grimm PA-C [id number] [place] [phone] PCP - General Family Medicine 05/04/23 Diana Desir, [facility] [place] [address] Pharmacist Pharmacist 04/17/21 Rain Galaviz PA-C [address] [place] [address] [place] [address] Physician Tax Accounting Manager Dermatology 04/28/21 Tavia Wyatt MD [address] [place] [address] [place] [phone] Dermatology 07/14/21 Erica Farrell APRN LAWN SPRINKLER INSTALLER [address] [place] [address] Nurse Practitioner Cardiovascular Disease 09/09/21 Rich Barrett MD [address] [place] [address] Physician Ophthalmology 01/21/22 Neil Kent MD 500 [place], [place] [address] Dermatology 02/24/22 Diana Desir, [facility] [address] [place], [place] 647696 Assigned [facility] Pharmacist 04/07/22 Livan Sharif MD [address] [place] [address] Cardiovascular Disease 05/14/22 Catherine Cm MD [address] [place] 432[address] Cardiovascular Disease 07/21/22 Valery Veronica PA-C 909 [place], [place] 654795 Physician Tax Accounting Manager Dermatology 07/21/22 Brea Quinn APRN LAWN SPRINKLER INSTALLER 500 [place], [place] 247775 Nurse Practitioner Dermatology 09/21/22 Brea Quinn APRN LAWN SPRINKLER INSTALLER 6401 [place] [address] Assigned Surgical Provider 10/09/22 05/01/24 [place] [address] [place] [address] Assigned Musculoskeletal Provider 10/09/22 05/01/24 Alfonso Renteria MD [address] [facility] 200 [place], [place] 0[address] Assigned Neuroscience Provider 04/02/23 09/29/24 Radha Lomeli, STRADDLE CARRIER OPERATOR LAWN SPRINKLER INSTALLER 6405 [facility] [address] [place] [address] Assigned Heart and Vascular Provider 05/28/23 Jelena David OD [address] [facility] [place] [address] Ophthalmology 06/15/23 Pao Joseph, VJ Personal Advocate & Liaison (PAL) Nurse 08/01/23 11/07/23 Esha Grimm PA-C [address] [place] [address]783 Assigned PCP 07/16/23 Valery Veronica PA-C [address] [place] [address] 195915 Physician Tax Accounting Manager Dermatology 09/19/23 Rey Tay MD [address] [place] [address] [phone] Gastroenterology 09/20/23 Rocky Zepeda DO [address] [place] [address] 469225 Physician Gastroenterology 09/20/23 Philip Dumont MD [address] [place] [address] 281865 Physician Ophthalmology 09/22/23 Meredith Carrera PA-C [address] [place] [address] 194735 Assigned Gastroenterology Provider 11/01/23 Neil Kent MD [address] [address] Dermatology 11/02/23 [place] [address] [address] Neurological Surgery 12/26/23 Audrey Waite PA-C [address] [place] [address] 333805 Physician Tax Accounting Manager Dermatology 02/28/24 Valery Veronica PA-C 714680 [address] [address] Physician Tax Accounting Manager Dermatology 04/10/24 Herminia Hatch MD [address] [place] [address] Assigned Rheumatology Provider 07/02/24 Jelena David OD [address] [place] [address] [place] [address] Ophthalmology 08/30/24 [place] [address] [place] [address] Assigned Neuroscience Provider 09/30/24 Maru Man PA-C [address] [place] [address] Physician Tax Accounting Manager Dermatology 10/03/24 documented as of this encounter
--- OUTSIDE RECORDS SUMMARY | 2024-10-18 19:30 | XMS_ITS | Encounter Summary ---
Author Organization [facility] Address [address] [place] [address] Care Team Providers Care Title 1 Tutor Name Role Phone Diana Desir Stanislav [facility] Unavailable Rain Galaviz PA-C Unavailable Tavia Wyatt MD Unavailable Erica Farrell APRN METAL MINER Unavailable Rich Barrett MD Unavailable [phone] Neil Kent MD Unavailable ThangKendrickDiana Stanislav [facility] Unavailable [phone] Livan Sharif MD Unavailable Catherine Cm MD Unavailable + Valery Veronica-C Unavailable Brea Quinn ELECTRICIAN SECOND METAL MINER Unavailable Esha Grimm PA-C Primary Care Provider Radha Lomeli APRN METAL MINER Unavailable Jelena David OD Unavailable Esha Grimm PA-C Unavailable [phone] Valery Veronica PA-C Unavailable [phone] Rey Tay MD Unavailable ZepedaRocky Unavailable Philip Dumont MD Unavailable [phone] LoreMeredith mayers PA-C Unavailable Neil Kent MD Unavailable Juan Pablo Emmanuel MD Unavailable Audrey Waite PA-C Unavailable [phone] Valery Veronica PA-C Unavailable Herminia Hatch MD Unavailable Jelena David OD Unavailable [phone] Juan Pablo Emamnuel MD Unavailable Reason for Visit * Reason Onset Date Comments Orders 10/01/2024 Zio Patch Encounter Details Date Type Department Care Team (Late st Contact Info) Description 10/01/2024 Telephone [facility] [id number] [place] [address] [address] [place] [address] Fabiano Correa, HOSPITAL CLERK [address] [place] [address] Orders (Zio Patch) Social History Tobacco Use Types Packs/Day Years [...] [facility] or [facility] services? 1 to 4 times [...] PHQ-2 Score 1 02/07/2024 [facility] [...] exercise at this level? 20 min 05/07/2024 Chelan Depression Scale Answer Date Recorded Chelan Depression Score 5 01/14/2021 Last EPDS Self [...] PM CDT Legal Sex Female 4:13 AM DEICER FINISHER Gender Identity Female 03/02/2021 5:45 PM CDT Sexual Orientation Straight 02/28/2020 12 :51 AM CDT documented as of this encounter Miscellaneous Notes * Telephone Encounter - Marija Bailey RN - 10/01/2024 12:20 PM CDT Updated patient with recommendations from Rodrigo via [employer]. * Telephone Encounter - Fabiano Correa NP - 10/01/2024 12:08 PM CDT Let's see how the results of the 3-day monitor look first and if they are unremarkable then she likely does not need to repeat a monitor or have any longer-term monitoring done as she has had severalmonitors done in the past which have looked okay. Thank you! Rodrigo Correa APRN, METAL MINER * Telephone Encounter - Mayra Rajput - 10/01/2024 11:42 AM CDT [facility] Phone Message May a detailed message be left on voicemail: yes Reason for Call: Order(s): Other: Reason for requested: Pt was only able to wear the mail out Zio Patch for three days due to skin irritation. Pt states she was told if this happened again to call clinic to have one placed in clinic instead. No orders to schedule an office visit from, please review and call pt back to coordinate. Thank you! Date needed: TBD by care team Provider name: Ximenachuck Action Taken: Message routed to: Other: [facility] [[id number]] Travel Screening: Not Applicable Date of Service: documented in this encounter Plan of Treatment Upcoming Encounters Date Type Department Care Team (Late st Contact Info) Description 10/22/2024 11:00 AM CDT Office Visit [address] [phone] Maru Man PA-C [address] [place] [address] 10/23/2024 PRE VISIT [facility] Neurology [facility] - [address], [address] [phone] Johnny Penn MD [address] [facility] [place], [place] [address] Previsit 10/23/2024 9:30 AM CDT Office Visit [facility] Neurology [facility] - [address], [address] [place] [phone] [place] [address] [place] [address] Johnny Penn MD [address] [place] [address] 10/24/2024 4:00 PM CDT [facility] [address] [place] [phone] Jelena David, SONJA [address] [facility] [place] [address] 10/31/2024 9:15 AM CDT Virtual Visit [facility] Gastroenterology [address]th [place] [phone] Meredith Carrera PA-C [address] [place] [address] 712485 12/20/2024 2:30 PM CDT Office Visit [facility] [address] [place] [address] Esha Grimm PA-C [address] [place] [phone] documented as of this encounter Visit Diagnoses Not on filedocumented in this encounter Additional Health Concerns Assessment Noted Time PHQ-9 Depression Total Score: 3 02/07/20 24 9:33 AM CDT documented as of this encounter Care Teams Title 1 Tutor Relationship Specialty Start Date End Date Esha Grimm PA-C [id number] [place] [address] PCP - General Family Medicine 05/04/23 Diana Desir, [facility] [address] [place] [address] Pharmacist Pharmacist 04/17/21 Rain Galaviz PA-C [address] [place] [place] [address] DR RAZO Lara [place] [address] Physician Certified Alcohol And Drug Counselor Dermatology 04/28/21 Tavia Waytt MD [address] [place] [place] [address] DR RAZO Lara ADAIR FELICIAKIARRAENMA [place] [address] Dermatology 07/14/21 Erica Farrell APRN METAL MINER [address] [place] [address] Nurse Practitioner Cardiovascular Disease 09/09/21 Rich Barrett MD [address] [place] 807745 Physician Ophthalmology 01/21/22 Neil Kent MD 500 [place], [place] 832635 Dermatology 02/24/22 Diana Desir, [facility] [address] [place] [address] Assigned MTM Pharmacist 04/07/22 Livan Sharif MD [address] [place] 607905 Cardiovascular Disease 05/14/22 Catherine Cm MD [address] [place] 040335 Cardiovascular Disease 07/21/22 Valery Veronica PA-C [address] [place] [address] 983625 Physician Certified Alcohol And Drug Counselor Dermatology 07/21/22 Brea Quinn APRN METAL MINER [address] [place] [address] 495035 Nurse Practitioner Dermatology 09/21/22 Radha Lomeli, ELECTRICIAN SECOND METAL MINER [address] 444055 Assigned Heart and Vascular Provider 05/28/23 Jelena David OD [address] [facility] [address] [place] [id number] MD Ophthalmology 06/15/23 Esha Grimm PA-C [address] [place] [phone] Assigned PCP 07/16/23 Valery Veronica PA-C [address] [place] [address] 970145 Physician Certified Alcohol And Drug Counselor Dermatology 09/19/23 Rey Tay MD [address] [place] [address] 589255 Gastroenterology 09/20/23 Rocky Zepeda DO [address] [place] [address] 302335 Physician Gastroenterology 09/20/23 Philip Dumont MD [address] [place] [address] Physician Ophthalmology 09/22/23 Meredith Carrera PA-C [address] [place] [address] Assigned Gastroenterology Provider 11/01/23 Neil Kent MD [address] [address] Dermatology 11/02/23 [place] [address] [place] [address] Neurological Surgery 12/26/23 Audrey [place] PA-C 500 [place] [address] Physician Certified Alcohol And Drug Counselor Dermatology 02/28/24 Valery Veronica PA-C [id number] [place] [address] Physician Certified Alcohol And Drug Counselor Dermatology 04/10/24 Herminia Hatch MD [address] [place] [address] [id number] Assigned Rheumatology Provider 07/02/24 [place] [address] [place] [address] [place] [address] Ophthalmology 08/30/24 [place] [address] [address] [place] [address] Assigned Neuroscience Provider 09/30/24 documented as of this encounter
--- OUTSIDE RECORDS SUMMARY | 2024-10-18 19:30 | XMS_ITS | Encounter Summary ---
Author Organization [facility] Address [address] [place] [address] Care Team Providers Care Rotogravure Press Operator Name Role Phone Diana Dseir [facility] Unavailable Rain Galaviz PA-C Unavailable Tavia Wyatt MD Unavailable [phone] Erica Farrell APRN AIR BATTLE MANAGER Unavailable Rich Barrett MD Unavailable [phone] Neil Kent MD Unavailable Diana Desir [facility] Unavailable Livan Sharif MD Unavailable Catherine Cm MD Unavailable + Valery Veronica PA-C Unavailable Brea Quinn MECHANIC INSULATOR AIR BATTLE MANAGER Unavailable Brea Quinn MECHANIC INSULATOR AIR BATTLE MANAGER Unavailable Jose Francisco Johnson MD Unavailable Alfonso Renteria MD Unavailable [phone] Esha Grimm PA-C Primary Care Provider Radha Lomeli APRN AIR BATTLE MANAGER Unavailable Frankie Jelena Templetone OD Unavailable Pao Joseph RN Unavailable Unavailable Esha Grimm PA-C Unavailable [phone] Valery Veronica PA-C Unavailable Rey Tay MD Unavailable Rocky Zepeda DO Unavailable Philip Dumont MD Unavailable Meredith Carrera PA-C Unavailable [phone] Neil Kent MD Unavailable Juan Pablo Emmanuel MD Unavailable [phone] Audrey Waite PA-C Unavailable Valery Veronica PA-C Unavailable Herminia Hatch MD Unavailable Jelena David OD Unavailable Juan Pablo Emmanuel MD Unavailable Maru Man PA-C Unavailable Reason for Visit * Reason Onset Date Comments Outreach 08/01/2023 Encounter Details Date Type Department Care Team (Late st Contact Info) Description 08/01/2023 MyC Medical Advice [facility] [address] [place] [address] Esha Grimm PA-C [address] [place] [address] Outreach Social History Tobacco Use Types [...] Answer Date Recorded PHQ-2 Score 0 06/20/2023 [facility] - Occupational Stress Questionnaire [...] exercise at this level? 30 min 03/10/2023 Paton Depression Scale Answer Date Recorded Paton Depression Score 5 01/14/2021 Last EPDS Self [...] PM CDT Legal Sex Female 4:13 AM SCRAP CUTTER Gender Identity Female 03/02/2021 5:45 PM CDT Sexual Orientation Straight 02/28/2020 12 :51 AM CDT documented as of this encounter Miscellaneous Notes * Telephone Encounter - Pao Joseph RN - 08/01/2023 2:31 PM CST Esha Grimm PA-C- ANGEL LUIS. See pt's Mychart messages. Routed to PCP Pao Marcos RN PAL (Patient Advocate Liaison) [facility] P CUTTER documented in this encounter Plan of Treatment Upcoming Encounters Date Type Department Care Team (Late st Contact Info) Description 10/22/2024 11:00 AM CDT Office Visit [facility] [place] [address] [phone] Maru Man PA-C [address] [address] 10/23/2024 PRE VISIT [facility] Neurology [address], [facility] 450 [place] [phone] Johnny Penn MD [address] [facility] [place], [place] [address] Previsit 10/23/2024 9:30 AM CDT Office Visit [facility] Neurology [facility] - [address], [address] [place] [phone] [place] [address] [place] [address] Johnny Penn MD [address] [address]385 10/24/2024 4:00 PM CDT Office Visit [facility] [place] [address] [place] [phone] Jelena David, [address] [facility] [place] [address] 10/31/2024 9:15 AM CDT Virtual Visit [facility] Gastroenterology Clinic [address] 4th [place] [phone] Meredith Carrera PA-C 909 [place] [address] 12/20/2024 2:30 PM CDT Office Visit [facility] [address] [place] [address] Esha Grimm PA-C [address] [place] [address] documented as of this encounter [...] Total Score: 4 06/20/20 23 8:40 AM SCRAP CUTTER documented as of this encounter Care Teams Rotogravure Press Operator Relationship Specialty Start Date End Date Esha Grimm PA-C [id number] [place] [address] PCP - General Family Medicine 05/04/23 Diana Desir, [facility] [address] [facility] [place] [address] Pharmacist Pharmacist 04/17/21 Rain Galaviz PA-C [address] [place] [address] [address] [facility] [place] [address] Physician Parts Control Clerk Dermatology 04/28/21 Tavia Wyatt MD [address] [place] [address] [place] [address] Dermatology 07/14/21 Erica Farrell APRN AIR BATTLE MANAGER [address] [place] 259865 Nurse Practitioner Cardiovascular Disease 09/09/21 Rich Barrett MD [address] [place], [place] 4[address] Physician Ophthalmology 01/21/22 Neil Kent MD 500 [place], [place] 959585 Dermatology 02/24/22 Diana Desir, [facility] [address] [place], [place] 600626 Assigned MTM Pharmacist 04/07/22 Livan Sharif MD [address] [place], [place] [address] Cardiovascular Disease 05/14/22 Catherine Cm MD [address] [place], [place] 8047[address] Cardiovascular Disease 07/21/22 Valery Veronica, PA-C 909 [place], [place] 954925 Physician Parts Control Clerk Dermatology 07/21/22 Brea Quinn APRN AIR BATTLE MANAGER 500 [place], [place] 493555 Nurse Practitioner Dermatology 09/21/22 Brea Quinn APRN AIR BATTLE MANAGER [address] [place] [address] Assigned Surgical Provider 10/09/22 05/01/24 [place] [address] [facility] [address] [place], [place] 076377 Assigned Musculoskeletal Provider 10/09/22 05/01/24 Alfonso Renteria MD [address] [facility] 200 [place], [place] 938006 Assigned Neuroscience Provider 04/02/23 09/29/24 Radha Lomeli APRN AIR BATTLE MANAGER [address] [facility] [address] [place] [address] Assigned Heart and Vascular Provider 05/28/23 Jelena David OD [address] [facility] [place] [address] Ophthalmology 06/15/23 Pao Joseph, VJ Personal Advocate & Liaison (PAL) Nurse 08/01/23 11/07/23 Esha Grimm PA-C [address] [place] [address]24[address]83 Assigned PCP 07/16/23 Valery Veronica PA-C 9 [place] [address] Physician Parts Control Clerk Dermatology 09/19/23 Rey Tay MD [address] [place] [address] Gastroenterology 09/20/23 Rocky Zepeda DO [address] [place] [address] Physician Gastroenterology 09/20/23 Philip Dumont MD [address] [place] [address] Physician Ophthalmology 09/22/23 Meredith Carrera PA-C [address] [place] [address] 526065 Assigned Gastroenterology Provider 11/01/23 Neil Kent MD [address] 942390 Dermatology 11/02/23 [place] [address] [address] Neurological Surgery 12/26/23 Audrey Waite PA-C 500 [place] [address] Physician Parts Control Clerk Dermatology 02/28/24 Valery Veronica PA-C 226018 [place], [place] [address] Physician Parts Control Clerk Dermatology 04/10/24 Herminia Hatch MD [address] [place] [address] Assigned Rheumatology Provider 07/02/24 Jelena David OD [address] [facility] [place] [place] [address] Ophthalmology 08/30/24 [place] [address] [place] [address] Assigned Neuroscience Provider 09/30/24 Maru Man PA-C [address] [place] [address] Physician Parts Control Clerk Dermatology 10/03/24 documented as of this encounter
--- OUTSIDE RECORDS SUMMARY | 2024-10-18 19:30 | XMS_ITS | Encounter Summary ---
Author Organization [facility] Address [address] [place] [address] Care Team Providers Care Toe Trimmer Name Role Phone Diana Desir [facility] Unavailable Rain Galaviz PA-C Unavailable Tavia Wyatt MD Unavailable [phone] Erica Farrell APRN WOMEN SPECIALIST Unavailable Rich Barrett MD Unavailable [phone] Neil Kent MD Unavailable Diana Desir [facility] Unavailable Livan Sharif MD Unavailable Catherine Cm MD Unavailable + Valery Veronica PA-C Unavailable [phone] Brea Quinn AERODYNAMICS ENGINEER WOMEN SPECIALIST Unavailable Brea Quinn AERODYNAMICS ENGINEER WOMEN SPECIALIST Unavailable Jose Francisco Johnson MD Unavailable Alfonso Renteria MD Unavailable [phone] Esha Grimm PA-C Primary Care Provider Radha Lomeli APRN WOMEN SPECIALIST Unavailable Tommy Davidmao Templetone OD Unavailable Pao Joseph RN Unavailable Unavailable AlfaJesusEsha M PA-C Unavailable [phone] Valery Veronica PA-C Unavailable Rey Tay MD Unavailable Rocky Zepeda DO Unavailable Philip Dumnot MD Unavailable [phone] Meredith Carrera PA-C Unavailable Neil Kent MD Unavailable Juan Pablo Emmanuel MD Unavailable Audrey Waite PA-C Unavailable [phone] Valery Vreonica PA-C Unavailable [phone] Herminia Hatch MD Unavailable Jelena David OD Unavailable [phone] Juan Pablo Emmanuel MD Unavailable [phone] Maru Man PA-C Unavailable [phone] Encounter Details Date Type Department Care Team (Late st Contact Info) Description 08/04/2023 [facility] Medical Advice [address] [address] Diana Desir, [facility] [address] [place] [address] Social History Tobacco Use Types [...] Score 0 06/20/2023 [facility] - Occupational Stress Questionnaire Answer [...] PM CDT Legal Sex Female 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 [address] [address] Maru Man PA-C [address] [address] 10/23/2024 PRE VISIT [facility] Neurology [address], [address] [place] [phone] Johnny Penn MD [address] [place] 544135 Previsit 10/23/2024 9:30 AM CDT Office Visit [facility] Neu[facility] [address] [place] [address], [address] [place] [phone] [place] [address] [place], [place] 15[address] Johnny Penn MD [address] [place] [address] 10/24/2024 4:00 PM CDT Office Visit [facility] [address] [facility] [address] [place] [phone] Jelena David, [address] [facility] [place] [address] 10/31/2024 9:15 AM CDT Virtual Visit [facility] Gastroenterology [address] 4th [place] [phone] Meredith Carrera PA-C [address] [place] [address] 480225 12/20/2024 2:30 PM CDT Office [facility] [address] [place] [address] Esha Grimm PA-C [address] [place] [address] documented as of this [...] Total Score: 4 06/20/20 23 8:40 AM COMBINATION TECHNICIAN documented as of this encounter Care Teams Toe Trimmer Relationship Specialty Start Date End Date Esha Grimm PA-C [address] [place] [address] PCP - General Family Medicine 05/04/23 Diana Desir, [facility] [address] [place] [address] Pharmacist Pharmacist 04/17/21 Rain Galaviz PA-C [address] [place] [address] [address] [facility] [place] [address] Physician District Director Dermatology 04/28/21 Tavia Wyatt MD [address] [place] [address] [address] [facility] [place] [address] Dermatology 07/14/21 Erica Farrell APRN WOMEN SPECIALIST [address] [place] [address] Nurse Practitioner Cardiovascular Disease 09/09/21 Rich Barrett MD [address] [place] [address] Physician Ophthalmology 01/21/22 Neil Kent MD 500 [place], [place] 707745 Dermatology 02/24/22 Diana Desir, [facility] [address] [place], [place] 246506 Assigned MTM Pharmacist 04/07/22 Livan Sharif MD [address] [place] [address]25 Cardiovascular Disease 05/14/22 Catherine Cm MD [address] [place] [address]405 Cardiovascular Disease 07/21/22 Valery Veronica, PAUcheC 909 [place], [place] 213605 Physician District Director Dermatology 07/21/22 Brea Quinn APRN WOMEN SPECIALIST 500 [place] [address] Nurse Practitioner Dermatology 09/21/22 Brea Quinn APRN WOMEN SPECIALIST [facility] [place] [address]772 Assigned Surgical Provider 10/09/22 05/01/24 [place] [address] [place] [address] Assigned Musculoskeletal Provider 10/09/22 05/01/24 Alfonso Renteria MD [address] [facility] [address] 200 [place] [address] Assigned Neuroscience Provider 04/02/23 09/29/24 Radha Lomeli APRN WOMEN SPECIALIST [address] [facility] [address] [place], [place] 906455 Assigned Heart and Vascular Provider 05/28/23 Jelena David OD [address] [facility] [place] [address] Ophthalmology 06/15/23 Pao Joseph, VJ Personal Advocate & Liaison (PAL) Nurse 08/01/23 11/07/23 Esha Grimm PA-C [address] [place] [address]-765383 Assigned PCP 07/16/23 Valery Veronica PA-C [address] [place] [address] 616615 Physician District Director Dermatology 09/19/23 Rey Tay MD [address] [place] [address] 073985 Gastroenterology 09/20/23 Rocky Zepeda DO [address] [place] [address] 597925 Physician Gastroenterology 09/20/23 Philip Dumont MD [address] [place] [address] 253835 Physician Ophthalmology 09/22/23 Meredith Carrera PA-C 909 [place] [address] Assigned Gastroenterology Provider 11/01/23 Neil Kent MD [address] [place] [address] Dermatology 11/02/23 [place] [address] [place] [address] 037307 Neurological Surgery 12/26/23 Audrey Waite PA-C 500 [place] [address] Physician District Director Dermatology 02/28/24 Valery Veronica PA-C 513155 [address] [place], [place] 343129 Physician District Director Dermatology 04/10/24 Herminia Hatch MD [address] [place] [address] [id number] Assigned Rheumatology Provider 07/02/24 Jelena David OD [address] [place] [address] [place] [address] Ophthalmology 08/30/24 [place] [address] [place] [address] Assigned Neuroscience Provider 09/30/24 Maru Man PA-C [address] [place] [address] Physician District Director Dermatology 10/03/24 documented as of this encounter
--- OUTSIDE RECORDS SUMMARY | 2024-10-18 19:30 | XMS_ITS | Encounter Summary ---
Author Organization [place] Address [address] [place] [address] Care Team Providers Care Orchid Grower Name Role Phone Diana Desir [facility] Unavailable [phone] Rain GalavizC Unavailable [phone] Tavia Wyatt MD Unavailable Erica Farrell APRN MOTOR COACH BUS DRIVER Unavailable Rich Barrett MD Unavailable [phone] Neil Kent MD Unavailable DesirKendrickDiana Stanislav [facility] Unavailable [phone] Livan Sharif MD Unavailable Catherine Cm MD Unavailable + Valery Veronica-C Unavailable rBea Quinn BRIDGE IRONWORKER MOTOR COACH BUS DRIVER Unavailable Alfonso Renteria MD Unavailable [phone] Esha GrimmC Primary Care Provider Radha Lomeli BRIDGE IRONWORKER MOTOR COACH BUS DRIVER Unavailable Jelena David OD Unavailable [phone] Alfa, Esha M PA-C Unavailable [phone] Valery Veronica PA-C Unavailable [phone] Rey Tay MD Unavailable Rocky Zepeda DO Unavailable Philip Dumont MD Unavailable [phone] Meredith Carrera PA-C Unavailable [phone] Neil Kent MD Unavailable Juan Pablo Emmanuel MD Unavailable Audrey Waite PA-C Unavailable [phone] Valery Veronica PA-C Unavailable [phone] Herminia Hatch MD Unavailable Jelena David OD Unavailable Juan Pablo Emmanuel MD Unavailable [phone] Maru Man PA-C Unavailable [phone] Encounter Details Date Type Department Care Team (Late st Contact Info) Description 06/20/2024 MyC Medical Advice [address] [address] Carley Myles RN Social History [...] do you attend [facility]? 1 to 4 times [...] 02/07/2024 [facility] Occupational Stress Questionnaire Answer Date [...] exercise at this level? 20 min 05/07/2024 Reagan Depression Scale Answer Date Recorded Reagan Depression Score 5 01/14/2021 Last EPDS Self [...] PM CDT Legal Sex Female 4:13 AM DUST SAMPLER Gender Identity Female 03/02/2021 5:45 PM CDT Sexual Orientation Straight 02/28/2020 12 :51 AM CDT documented as of this encounter Plan of Treatment Upcoming Encounters Date Type Department Care Team (Late st Contact Info) Description 10/22/2024 11:00 AM CDT Office Visit [address] [address] Maru Man PA-C [address] [place] [address] 10/23/2024 PRE VISIT [facility] Neurology [facility] [address], [address] [place] [address] Johnny Penn MD [address] [place] [address] Previsit 10/23/2024 9:30 AM CDT Office Visit [facility] Neurology [facility] [place] [address] [facility], [address] [place] [phone] [place] [address] [place] [address] Johnny Penn MD 6545 [facility] [place] 60[address] 10/24/2024 4:00 PM CDT Office Visit [facility] [address] [facility] [address] [place] [phone] Jelena David, [address] [facility] [place] [address] 10/31/2024 9:15 AM CDT Virtual Visit [facility]ology Clinic [address]th [place] [phone] Meredith Carrera PA-C [address] [place] [address] 12/20/2024 2:30 PM CDT Office Visit [facility] [address] [place] [phone] Esha Grimm PA-C [address] [place] [address] documented as of this encounter Visit Diagnoses Not on filedocumented in this encounter Additional Health Concerns Infection Onset Date Last Indicated Resolved Time Rule Out COVID-19 10/04/2024 10/04/2024 10/05/2024 9:42 AM CDT Assessment Noted Time PHQ-9 Depression Total Score: 3 02/07/20 24 9:33 AM CDT documented as of this encounter Care Teams Orchid Grower Relationship Specialty Start Date End Date Ehsa Grimm PA-C [address] [place] [address] PCP - General Family Medicine 05/04/23 Diana Desir, [facility] [place] [address] Pharmacist Pharmacist 04/17/21 Rain Galaviz PA-C [address] [place] [address] [address] [place] [address] Physician Manufacturing Clerk Dermatology 04/28/21 Tavia Wyatt MD [address] [place] [address] [address] [place] [address] Dermatology 07/14/21 Erica Farrell APRN MOTOR COACH BUS DRIVER [address] [place] [address] Nurse Practitioner Cardiovascular Disease 09/09/21 Rich Barrett MD [address] [place] [address] Physician Ophthalmology 01/21/22 Neil Kent MD 500 [place], [place] 100[address]45 Dermatology 02/24/22 Diana Desir, [facility] [place] [address] Assigned MTM Pharmacist 04/07/22 Livan Sharif MD [address] [facility] [address] [place] 470465 Cardiovascular Disease 05/14/22 Catherine Cm MD [address] [facility] [address] [place] 486845 Cardiovascular Disease 07/21/22 Valery Veronica PA-C 909 [place], [place] 878965 Physician Manufacturing Clerk Dermatology 07/21/22 Brea Quinn APRN MOTOR COACH BUS DRIVER 500 [place], [place] 774675 Nurse Practitioner Dermatology 09/21/22 Alfonso Renteria MD 5775 [facility] 200 [place], [place] 869976 Assigned Neuroscience Provider 04/02/23 09/29/24 Radha Lomeli APRN MOTOR COACH BUS DRIVER [address] [place], [place] 298745 Assigned Heart and Vascular Provider 05/28/23 Jelena David OD [address]305 [facility] [place] [address] Ophthalmology 06/15/23 Esha Grimm PA-C [address] [place] [address] Assigned PCP 07/16/23 Valery Veronica PA-C [address] [place] [address] Physician Manufacturing Clerk Dermatology 09/19/23 Rey Tay MD [address] [place] [address] MD Gastroenterology 09/20/23 Rocky Zepeda DO [address] [place] [address] 902305 Physician Gastroenterology 09/20/23 Philip Dumont MD [address] [place] [address] Physician Ophthalmology 09/22/23 Meredith Carrera PA-C [address] [place] [address] 853175 Assigned Gastroenterology Provider 11/01/23 Neil Kent MD [address] [address] Dermatology 11/02/23 [place] [address] [address] Neurological Surgery 12/26/23 Audrey Waite PA-C [address] [place] [address] 371795 Physician Manufacturing Clerk Dermatology 02/28/24 Valery Veronica PA-C [address]436 [address] [place] [address] Physician Manufacturing Clerk Dermatology 04/10/24 Herminia Hatch MD [facility] [place], [place] 62[address] Assigned Rheumatology Provider 07/02/24 Jelena David OD [address]305 [facility] [place] [address] Ophthalmology 08/30/24 [place] [address] [place] [address] Assigned Neuroscience Provider 09/30/24 Maru Man PA-C [address] [place] [address] Physician Manufacturing Clerk Dermatology 10/03/24 documented as of this encounter
--- OUTSIDE RECORDS SUMMARY | 2024-10-18 19:31 | XMS_ITS | Encounter Summary ---
Author Organization [place] Address [address] [place] [address] Care Team Providers Care Boatswain'S Mate Name Role Phone Diana Desir [facility] Unavailable Rain Galaviz PA-C Unavailable Tavia Wyatt MD Unavailable Erica Farrell APRN PUBLIC SERVICES LIBRARIAN Unavailable Rich Barrett MD Unavailable [phone] Neil Kent MD Unavailable DesirDiana [facility] Unavailable Livan Sharif MD Unavailable Catherine Cm MD Unavailable + Valery Veronica PA-C Unavailable Brea Quinn APRN PUBLIC SERVICES LIBRARIAN Unavailable Brea Quinn BAND TUMBLER PUBLIC SERVICES LIBRARIAN Unavailable [phone] Jose Francisco Johnson MD Unavailable Sydnie Martinez RN Unavailable Unavailable Alfonso Renteria MD Unavailable [phone] Esha Grimm PA-C Primary Care Provider [phone] Cheng Todd PA-C Unavailable Radha Lomeli APRN PUBLIC SERVICES LIBRARIAN Unavailable Jelena David OD Unavailable Pao Joseph RN Unavailable Unavailable Esha Grimm PA-C Unavailable [phone] Valery Veronica PA-C Unavailable Rey Tay MD Unavailable Rocky Zeepda DO [...] Contact Info) Description 07/06/2023 MyC Medical Advice [facility] [address] [place] [address] Esha Grimm PA-C [address] [place] [address] Social History Tobacco Use Types [...] exercise at this level? 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 [address] [phone] Maru Man PA-C [address] [address] 10/23/2024 PRE VISIT [facility] Neurology [facility] [address] [facility], [address] [place] [phone] Johnny Penn MD [address] [place] 484865 Previsit 10/23/2024 9:30 AM CDT Office Visit [facility] Neurology [facility] [address] [facility], [address] [place] [address] [place] [address] [place] [address] Johnny Penn MD [address] [place] [address] 10/24/2024 4:00 PM CDT Office Visit [facility] [address] [facility] [address] [place] [address] Jelena David, [address] [facility] [place] [address] 10/31/2024 9:15 AM CDT Virtual Visit [facility] Gastroenterology Clinic [address] 4th [place] [phone] Meredith Carrera PA-C 909 [place], [place] [address] 12/20/2024 2:30 PM CDT Office Visit [facility] [address] [place] [address] Esha Grimm PA-C [address] [place] [address] documented as of this encounter Visit Diagnoses Not on filedocumented in this encounter Additional Health Concerns Infection Onset Date Last Indicated Resolved Time Rule Out COVID-19 12/26/2023 12/26/2023 12/26/2023 9:50 AM CDT Rule Out COVID-19 04/09/2024 04/09/2024 04/10/2024 6:48 PM CDT Rule Out COVID-19 10/04/2024 10/04/2024 10/05/2024 9:42 AM CDT Assessment Noted Time PHQ-9 Depression Total Score: 4 06/20/20 8:40 AM SORT SUPERVISOR documented as of this encounter Care Teams Boatswain'S Mate Relationship Specialty Start Date End Date Esha Grimm PA-C [address] [place] [phone] PCP - General Family Medicine 05/04/23 Diana Desir, [facility] [address] [place], [place] [address] Pharmacist Pharmacist 04/17/21 Rain Galaviz PA-C [address] [place] [address] [address] [facility] [place] [address] Physician Head Up Operator Helper Dermatology 04/28/21 Tavia Wyatt MD [address] [place] [address] [address] [facility] [place] [address] Dermatology 07/14/21 Erica Farrell APRN PUBLIC SERVICES LIBRARIAN 6405 [facility] [address] [place] [address] Nurse Practitioner Cardiovascular Disease 09/09/21 Rich Barrett MD [address] [place] [address] Physician Ophthalmology 01/21/22 Neil Kent MD 500 [place] [address] Dermatology 02/24/22 [facility] 3033 [place] [address] Assigned MTM Pharmacist 04/07/22 Livan Sharif MD [address] 398[address] Cardiovascular Disease 05/14/22 Catherine Cm MD [address] [facility] [address] 464045 Cardiovascular Disease 07/21/22 Valery Veronica, PA-C 909 [place], [place] 191745 Physician Head Up Operator Helper Dermatology 07/21/22 Brea Quinn APRN PUBLIC SERVICES LIBRARIAN 500 [place] [address] Nurse Practitioner Dermatology 09/21/22 Brea Quinn APRN PUBLIC SERVICES LIBRARIAN [address] [place] [address] [facility] [place] 257392 Assigned Surgical Provider 10/09/22 05/01/24 [place] [address] RA[address] [place] [address] Assigned Musculoskeletal Provider 10/09/22 05/01/24 Sydnie Martinez, RN Personal Advocate & Liaison (PAL) Family Medicine 03/28/23 07/31/23 Alfonso Renteria MD 5775 [facility] [address] 200 [place] [address] Assigned Neuroscience Provider 04/02/23 09/29/24 Cheng Todd PA-C [address] [place] [address] [id number] Assigned PCP 04/30/23 07/15/23 Radha Lomeli APRN PUBLIC SERVICES LIBRARIAN [address] [place] 5749100 [place], [place] 629455 Assigned Heart and Vascular Provider 05/28/23 Jelena David OD [address] [place] [address] Ophthalmology 06/15/23 Pao Joseph, VJ Personal Advocate & Liaison (PAL) Nurse 08/01/23 11/07/23 Esha Grimm PA-C [address] [place] [address]28[address]83 Assigned PCP 07/16/23 Valery Veronica PA-C [address] [place] [address] 195115 Physician Head Up Operator Helper Dermatology 09/19/23 Rey Tay MD [address] [place] [address] 507415 MD Gastroenterology 09/20/23 Rocky Zepeda DO [address] [place] [address] 953495 Physician Gastroenterology 09/20/23 Philip Dumont MD [address] [place] [address] 156335 Physician Ophthalmology 09/22/23 Meredith Carrera PA-C [address] [place] [address] 294245 Assigned Gastroenterology Provider 11/01/23 Neil Kent MD [address] [place] [address] 182240 Dermatology 11/02/23 [place] [address] 655977 Neurological Surgery 12/26/23 Audrey Waite PA-C [address] [place] [address] 690265 Physician Head Up Operator Helper Dermatology 02/28/24 Valery Veronica PA-C 877590 [place], [place] [address] Physician Head Up Operator Helper Dermatology 04/10/24 Herminia Hatch MD [facility] [place] [address] Assigned Rheumatology Provider 07/02/24 [place] [address] [place] [address] [place] [address] Ophthalmology 08/30/24 [place] [address] [place] [address] Assigned Neuroscience Provider 09/30/24 Maru Man PA-C [address] [address] Physician Head Up Operator Helper Dermatology 10/03/24 documented as of this encounter
--- OUTSIDE RECORDS SUMMARY | 2024-10-18 19:31 | XMS_ITS | Encounter Summary ---
Author Organization [place] Address [address] [place] [address] Care Team Providers Care Electrical Instrument Maker Name Role Phone Diana Desir [facility] Unavailable Rain Galaviz PA-C Unavailable Tavia Wyatt MD Unavailable [phone] Erica Farrell APRN PROPOSAL REVIEW ANALYST Unavailable Rich Barrett MD Unavailable [phone] Neil Kent MD Unavailable DesirDiana [facility] Unavailable Livan Sharif MD Unavailable Catherine Cm MD Unavailable + Valery Veronica PA-C Unavailable [phone] Brea Quinn APRN PROPOSAL REVIEW ANALYST Unavailable Brea Quinn COMMUNITY PHARMACIST PROPOSAL REVIEW ANALYST Unavailable Jose Francisco Johnson MD Unavailable Sydnie Martinez RN Unavailable Unavailable Alfonso Renteria MD Unavailable [phone] Esha Grimm PA-C Primary Care Provider [phone] Cheng Todd PA-C Unavailable Radha Lomeli APRN PROPOSAL REVIEW ANALYST Unavailable Jelena David OD Unavailable Pao Joseph RN Unavailable Unavailable Esha Grimm Adam PA-C Unavailable [phone] Valery Veronica PA-C Unavailable Rey Tay MD Unavailable Rocky Zepeda DO Unavailable Philip Dumont MD Unavailable Meredith Carrera PA-C Unavailable Neil Kent MD Unavailable Juan Pablo Emmanuel MD Unavailable Audrey Waite PA-C Unavailable JeremíasValery damon PA-C Unavailable Herminia Hatch MD Unavailable Jelena David OD Unavailable [phone] Juan Pablo Emmanuel MD Unavailable Maru Man PA-C Unavailable Encounter Details Date Type Department Care Team (Late st Contact Info) Description 07/06/2023 MyC Medical Advice Adam Elliott [facility] Epilepsy Care [address] [place] [address], [address] [place] [address] Alfonso Renteria MD [address] [facility] [address] [place] [address] Social History Tobacco Use Types [...] 06/20/2023 [facility] of Occupat [...] exercise at this level? 30 min 03/10/2023 [place] Depression Scale Answer Date Recorded [place] Depression Score 5 01/14/2021 Last EPDS Self [...] CDT Legal Sex Female 4:13 AM RIVET SORTER Gender Identity Female 03/02/2021 5:45 PM CDT Sexual Orientation Straight 02/28/2020 12 :51 AM CDT documented as of this encounter Miscellaneous Notes * Telephone Encounter - Genny Hyman PA-C - 07/07/2023 11:13 AM RIVET SORTER No lesions/abnormal findings on MRI to account for possible seizure activity. Last office note indicated: If repeat MRI was normal would reduce levetiracetam to 250 mg per day for two weeks and then stop. Ok to proceed with this plan. Call if questions, concerns, or worsening of symptoms with discontinuation of the medication Genny Hyman PA-C T SORTER documented in this encounter Plan of Treatment Upcoming Encounters Date Type Department Care Team (Late st Contact Info) Description 10/22/2024 11:00 AM CDT Office Visit [facility] [address] [phone] Maru Man PA-C [address] [address] 10/23/2024 PRE VISIT [facility] Neurology [facility] - [address] [place] [phone] Johnny Penn MD 5[address] [facility] [place] [address] Previsit 10/23/2024 9:30 AM CDT Office Visit [facility] Neurology [facility] - [address] [phone] [place] [address] [place] [address] Johnny Penn MD [address] [place] 889865 10/24/2024 4:00 PM CDT [facility] [address] [facility] [address] [place] [phone] Jelena David, [place] 3305 [facility] [place] [address] 10/31/2024 9:15 AM CDT Virtual Visit [facility] Gastroenterology Clinic [address] 4th [place] [phone] Meredith Carrera PA-C [address] [place] [address] 12/20/2024 2:30 PM CDT Office Visit [facility] [address] [place] [address] Esha Grimm PA-C [address] [place] [address] documented as of this encounter [...] Total Score: 4 06/20/20 23 8:40 AM RIVET SORTER documented as of this encounter Care Teams Electrical Instrument Maker Relationship Specialty Start Date End Date Esha Grimm PA-C [id number] [place] [address] PCP - General Family Medicine 05/04/23 Diana Desir, [facility] [address] [place] [address] Pharmacist Pharmacist 04/17/21 Rain Galaviz PA-C [address] [place] [address] [address] [facility] [id number] Physician Costume Shop Coordinator Dermatology 04/28/21 Tavia Wyatt MD [address] [place] [address] DR RAZO [facility] [place] [address] Dermatology 07/14/21 Erica Farrell APRN PROPOSAL REVIEW ANALYST [address] [place] [address] Nurse Practitioner Cardiovascular Disease 09/09/21 Rich Barrett MD [address] [place] [address]75 Physician Ophthalmology 01/21/22 Neil Kent MD 500 [place], [place] 618125 Dermatology 02/24/22 [facility] 3033 [place], [place] 7[address] Assigned [facility] Pharmacist 04/07/22 Livan Sharif MD [address] [place] [address] Cardiovascular Disease 05/14/22 Catherine Cm MD [address] [place] [address]25 Cardiovascular Disease 07/21/22 Valery Veronica, PA-C 909 [place] [address] Physician Costume Shop Coordinator Dermatology 07/21/22 Brea Quinn APRN PROPOSAL REVIEW ANALYST 500 [place] [address] Nurse Practitioner Dermatology 09/21/22 Brea Quinn APRN PROPOSAL REVIEW ANALYST [address] [place] [address] Assigned Surgical Provider 10/09/22 05/01/24 [place] [address] [place] [facility] 300 [place] [address] Assigned Musculoskeletal Provider 10/09/22 05/01/24 Sydnie Martinez RN Personal Advocate & Liaison (PAL) Family Medicine 03/28/23 07/31/23 Alfonso Renteria MD 5775 [facility] 200 [place] [address] Assigned Neuroscience Provider 04/02/23 09/29/24 Cheng Todd PA-C [address] [place] [address] [id number] Assigned PCP 04/30/23 07/15/23 Radha Lomeli, ARLENE PROPOSAL REVIEW ANALYST [address] [facility] [address] [place] [address] Assigned Heart and Vascular Provider 05/28/23 Jelena David OD [address] [facility] [place] [address] Ophthalmology 06/15/23 Pao Joseph, VJ Personal Advocate & Liaison (PAL) Nurse 08/01/23 11/07/23 Esha Grimm PA-C [address] [place] [address] Assigned PCP 07/16/23 Valery Veronica PA-C [address] [place] [address] 153605 Physician Costume Shop Coordinator Dermatology 09/19/23 Rey Tay MD [address] [place] [address] 481585 MD Gastroenterology 09/20/23 Rocky Zepeda DO [address] [place] [address] 083005 Physician Gastroenterology 09/20/23 Philip Dumont MD [address] [place] [address] 209805 Physician Ophthalmology 09/22/23 Meredith Carrera PA-C [address] [place] [address] 529155 Assigned Gastroenterology Provider 11/01/23 Neil Kent MD [address] [address] Dermatology 11/02/23 [place] [address] [place], [place] 3018[address] Neurological Surgery 12/26/23 Audrey Waite PA-C [address] [place] [address] 819375 Physician Costume Shop Coordinator Dermatology 02/28/24 Valery Veronica PA-C [address] [place] [address] Physician Costume Shop Coordinator Dermatology 04/10/24 Herminia Hatch MD 1875 [place], [place] 07443[address] Assigned Rheumatology Provider 07/02/24 Jelena David OD [address] [facility] [place] [address] Ophthalmology 08/30/24 [place] [address] [place] [address] Assigned Neuroscience Provider 09/30/24 Maru Man PA-C [address] [place] [address] Physician Costume Shop Coordinator Dermatology 10/03/24 documented as of this encounter
--- OUTSIDE RECORDS SUMMARY | 2024-10-18 19:31 | XMS_ITS | Encounter Summary ---
Author Organization [place] Address [address] [place] [address] Care Team Providers Care Wireless Architect Name Role Phone Diana Desir [facility] Unavailable Rain Galaviz PA-C Unavailable Tavia Wyatt MD Unavailable Erica Farrell APRN CARPENTRY SPECIALIST Unavailable Rich Barrett MD Unavailable [phone] Neil Kent MD Unavailable DesirDiana [facility] Unavailable Livan Sharif MD Unavailable Catherine Cm MD Unavailable + Valery Veronica PA-C Unavailable Brea Quinn APRN CARPENTRY SPECIALIST Unavailable [phone] Brea Quinn SERVICE OBSERVER CHIEF CARPENTRY SPECIALIST Unavailable Jose Francisco Johnson MD Unavailable Sydnie Martinez RN Unavailable Unavailable Alfonso Renteria MD Unavailable [phone] Esha Grimm PA-C Primary Care Provider Cheng Todd PA-C Unavailable Radha Lomeli APRN CARPENTRY SPECIALIST Unavailable Jelena David OD Unavailable Pao Joseph RN Unavailable Unavailable Esha Grimm Adam PA-C Unavailable [phone] Valery Veronica PA-C Unavailable Rey Tay [...] Description 06/17/2023 MyC Medical Advice Adam Elliott [facility] Epilepsy Care [address], [address] [place] [address] Alfonso Renteria MD [address] [facility] [address] [place] [address] Social History Tobacco Use Types [...] Recorded PHQ-2 Score 0 06/20/2023 [facility] of Occupat [...] exercise at this level? 30 min 03/10/2023 [place] Depression Scale Answer Date Recorded [...] CDT Legal Sex Female 4:13 AM MOLD PULLER Gender Identity Female 03/02/2021 5:45 PM CDT Sexual Orientation Straight 02/28/2020 12 :51 AM CDT documented as of this encounter Miscellaneous Notes * Telephone Encounter - Lulu Xie - 06/28/2023 12:08 PM CST Patient calling to follow up on the below [employer] message. Patient continues to have a lot of dizzyness and neck pain. PULLER documented in this encounter Plan of Treatment Upcoming Encounters Date Type Department Care Team (Late st Contact Info) Description 10/22/2024 11:00 AM CDT Office Visit [facility] [place] [address] [phone] Maru Man PA-C [address] [address] 10/23/2024 PRE VISIT [facility] [address], [facility] 450 [place] [phone] Johnny Penn MD [address] [place] [address] Previsit 10/23/2024 9:30 AM CDT Office Visit [facility] [address], [address] [place] [phone] [place] [address] [place], [place] [address] Johnny Penn MD [address] [place] 84[address] 10/24/2024 4:00 PM CDT Office Visit [facility] [place] [address] [place] [phone] Jelena David, [address] [facility] [place] [address] 10/31/2024 9:15 AM CDT Virtual Visit [facility] Gastroenter[facility] [address] 4th [place] [phone] Meredith Carrera PA-C [address] [place] [address] [place] [address] 12/20/2024 2:30 PM CDT Office Visit [facility] [address] [place] [phone] Esha Grimm PA-C [address] [place] [address] documented as of this encounter Visit Diagnoses Not on filedocumented in this encounter Additional Health Concerns Infection Onset Date Last Indicated Resolved Time Rule Out COVID-19 12/26/2023 12/26/2023 12/26/2023 9:50 AM CDT Rule Out COVID-19 04/09/2024 04/09/2024 04/10/2024 6:48 PM CDT Rule Out COVID-19 10/04/2024 10/04/2024 10/05/2024 9:42 AM CDT Assessment Noted Time PHQ-9 Depression Total Score: 6 05/16/20 9:29 AM MOLD PULLER documented as of this encounter Care Teams Wireless Architect Relationship Specialty Start Date End Date Esha Grimm PA-C [id number] [place] [phone] PCP - General Family Medicine 05/04/23 Diana Desir, [facility] [facility] [place] [address] Pharmacist Pharmacist 04/17/21 Rain Galaviz PA-C [address] [place] [address] [place] [address] Physician Transformer Molder Dermatology 04/28/21 Tavia Wyatt MD [address] [place] [address] [place] [address] Dermatology 07/14/21 Erica Farrell APRN CARPENTRY SPECIALIST [address] [place] [address] Nurse Practitioner Cardiovascular Disease 09/09/21 Rich Barrett MD [address] [place] [address] Physician Ophthalmology 01/21/22 Neil Kent MD 500 [place], [place] 6[address] Dermatology 02/24/22 Diana Desir, [facility] [address] [place], [place] [address]406 Assigned MTM Pharmacist 04/07/22 Livan Sharif MD [address] [address] Cardiovascular Disease 05/14/22 Catherine Cm MD [address] [address] Cardiovascular Disease 07/21/22 Valery Veronica PAUcheC 909 [place], [place] 96[address] Physician Transformer Molder Dermatology 07/21/22 Brea Quinn APRN CARPENTRY SPECIALIST 500 [place], [place] 79[address] Nurse Practitioner Dermatology 09/21/22 Brea Quinn, SERVICE OBSERVER CHIEF CARPENTRY SPECIALIST [address] [facility] [place] [address] Assigned Surgical Provider 10/09/22 05/01/24 [place] [address] [facility] 300 [place] [address] Assigned Musculoskeletal Provider 10/09/22 05/01/24 Sydnie Martinez RN Personal Advocate & Liaison (PAL) Family Medicine 03/28/23 07/31/23 Alfonso Renteria MD 5775 [facility] 200 [place] [address] Assigned Neuroscience Provider 04/02/23 09/29/24 Cheng Todd PA-C [address] [place] [address] [id number] Assigned PCP 04/30/23 07/15/23 Radha Lomeli APRN CARPENTRY SPECIALIST [address] [facility] [address] [place] [address] Assigned Heart and Vascular Provider 05/28/23 Jelena David OD [address] [facility] [place] [address] Ophthalmology 06/15/23 Pao Joseph, VJ Personal Advocate & Liaison (PAL) Nurse 08/01/23 11/07/23 Esha Grimm PA-C [address] [place] [phone] Assigned PCP 07/16/23 Valery Veronica PA-C [address] [place] [address] Physician Transformer Molder Dermatology 09/19/23 Rey Tay MD [address] [place] [address] MD Gastroenterology 09/20/23 Rocky Zepeda DO [address] [place] [address] 283825 Physician Gastroenterology 09/20/23 Philip Dumont MD [address] [place] [address] 339365 Physician Ophthalmology 09/22/23 Meredith Carrera PA-C [address] [place] [address] 691865 Assigned Gastroenterology Provider 11/01/23 Neil Kent MD [address] [address] Dermatology 11/02/23 [place] [address] [place] [address] [address] Neurological Surgery 12/26/23 Audrey Waite PA-C [address] [place] [address] 692775 Physician Transformer Molder Dermatology 02/28/24 Valery Veronica PA-C [id number] [place] [address] 691509 Physician Transformer Molder Dermatology 04/10/24 Herminia Hatch MD [facility]5 [place], [place] [phone] Assigned Rheumatology Provider 07/02/24 Jelena David OD [address] [facility] [place] [address] Ophthalmology 08/30/24 [place] [address] [place] [address] Assigned Neuroscience Provider 09/30/24 Maru Man PA-C [address] [place] [address] Physician Transformer Molder Dermatology 10/03/24 documented as of this encounter
--- OUTSIDE RECORDS SUMMARY | 2024-10-18 19:31 | XMS_ITS | Encounter Summary ---
Author Organization [place] Address [address] [place] [address] Care Team Providers Care Dust Box Tender Name Role Phone Diana Desir [facility] Unavailable Rain GalavizC Unavailable Tavia Wyatt MD Unavailable Erica Farrell APRN NOODLE MAKER Unavailable Rich Barrett MD Unavailable [phone] Neil Kent MD Unavailable DesirKendrickDiana Stanislav [facility] Unavailable [phone] Livan Sharif MD Unavailable Catherine Cm MD Unavailable + Valery Veronica-C Unavailable [phone] Brea Quinn PUBLIC FINANCE SPECIALIST NOODLE MAKER Unavailable [phone] Alfonso Renteria MD Unavailable [phone] Esha GrimmC Primary Care Provider [phone] Radha Lomeli PUBLIC FINANCE SPECIALIST NOODLE MAKER Unavailable Jelena David OD Unavailable [place], Esha M PA-C Unavailable [phone] Valery Veronica PA-C Unavailable Rey Tay MD Unavailable Rocky Zepeda DO Unavailable Philip Dumont MD Unavailable [phone] Meredith Carrera PA-C Unavailable [phone] Neil Kent MD Unavailable Juan Pablo Emmanuel MD Unavailable Audrey Waite PA-C Unavailable [phone] Valery Veronica PA-C Unavailable [phone] Herminia Hatch MD Unavailable Jelena David OD Unavailable Juan Pablo Emmanuel MD Unavailable [phone] Maru Man PA-C Unavailable [phone] Encounter Details Date Type Department Care Team (Late st Contact Info) Description 06/06/2024 [facility] [address] [place] [address] Outside, Provider Social History Tobacco Use Types [...] Answer Date Recorded PHQ-2 Score 1 02/07/2024 [facility] [...] exercise at this level? 20 min 05/07/2024 [place] Depression Scale Answer Date Recorded Craig [...] PM CDT Legal Sex Female 4:13 AM SEO CONSULTANT Gender Identity Female 03/02/2021 5:45 PM CDT Sexual Orientation Straight 02/28/2020 12 :51 AM CDT documented as of this encounter Plan of Treatment Upcoming Encounters Date Type Department Care Team (Late st Contact Info) Description 10/22/2024 11:00 AM CDT Office Visit [address] [address] Maru Man PA-C [address] [place] [address] 507470 10/23/2024 PRE VISIT [facility] Neurology [facility] [address], [address] [place] [address] Johnny Penn MD [address] [facility] [place] [id number] Previsit 10/23/2024 9:30 AM CDT Office Visit [facility] Neurology [facility] [address] [facility], [address] [place] [phone] [place] [address] [place] [address] Johnny Penn MD [address] [facility] [place] [address] 10/24/2024 4:00 PM CDT Office Visit [facility] [address] [facility] [address] [place] [phone] Jelena David, [address] [facility] [place] [address] 10/31/2024 9:15 AM CDT Virtual Visit [facility] Gastroenterology Clinic [address] [place] [phone] Meredith Carrera PA-C [address] [place] [address] 12/20/2024 2:30 PM CDT Office Visit [facility] [address] [place] [address] Esha Grimm PA-C [address] [place] [address] documented as of this encounter Procedures Procedure Name Priority Date/Time Associated Diagnosis Comments HLA RESULT REPORT 06/06/2024 2:04 PM SEO CONSULTANT documented in this encounter Results * HLA Result Report (06/06/2024 2:04 PM SEO CONSULTANT) us Provider Outside LAB - IMMUNOLOGY ORDERABLES Fin al Result documented in this encounter Visit Diagnoses Not on filedocumented in this encounter Additional Health Concerns Infection Onset Date Last Indicated Resolved Time Rule Out COVID-19 10/04/2024 10/04/2024 10/05/2024 9:42 AM CDT Assessment Noted Time PHQ-9 Depression Total Score: 3 02/07/20 24 9:33 AM CDT documented as of this encounter Care Teams Dust Box Tender Relationship Specialty Start Date End Date Esha Grimm PA-C [address] [place] [address] PCP - General Family Medicine 05/04/23 Diana Desir, [facility] [address] [place] [address] Pharmacist Pharmacist 04/17/21 Rain Galaviz PA-C [address] [place] [address] [address] [place] [address] Physician Poising Inspector Dermatology 04/28/21 Tavia Wyatt MD [address] [place] [address] [address] [place] [address] Dermatology 07/14/21 Erica Farrell APRN NOODLE MAKER [address] [place] [address] Nurse Practitioner Cardiovascular Disease 09/09/21 Rich Barrett MD [address] [place] [address] Physician Ophthalmology 01/21/22 Neil Kent MD 500 [place], [place] 490185 Dermatology 02/24/22 Diana Desir, [facility] [address] [place], [place] [phone] Assigned MTM Pharmacist 04/07/22 Livan hSarif MD [address] [place] 9950[address] Cardiovascular Disease 05/14/22 Catherine Cm MD [address] [place] [address] Cardiovascular Disease 07/21/22 Valery Veronica, PA-C 909 [place], [place] [address]105 Physician Poising Inspector Dermatology 07/21/22 Brea Quinn APRN NOODLE MAKER 500 [place] [address] Nurse Practitioner Dermatology 09/21/22 Alfonso Renteria MD 5775 [facility] 200 [place], [place] [id number] Assigned Neuroscience Provider 04/02/23 09/29/24 Radha Lomeli APRN NOODLE MAKER [address] [place] 57[address] Assigned Heart and Vascular Provider 05/28/23 [place] [address] [place] [address] [place] [address] MD Ophthalmology 06/15/23 Esha Grimm PA-C [address] [place] [address] Assigned PCP 07/16/23 Valery Veronica PA-C [address] [place] [address] 170255 Physician Poising Inspector Dermatology 09/19/23 Rey Tay MD [address] [place] [address] 617985 MD Gastroenterology 09/20/23 Rocky Zepeda DO [address] [place] [address] 679305 Physician Gastroenterology 09/20/23 Philip Dumont MD [address] [place] [address] 014875 Physician Ophthalmology 09/22/23 Meredith Carrera PA-C [address] [place] [address] 752965 Assigned Gastroenterology Provider 11/01/23 Neil Kent MD [address] [address] Dermatology 11/02/23 [place] [address] [place] [address] Neurological Surgery 12/26/23 Audrey Waite PA-C [address] [place] [address] 898605 Physician Poising Inspector Dermatology 02/28/24 Valery Veronica PA-C 012367 [address], [place] [address] Physician Poising Inspector Dermatology 04/10/24 Herminia Hatch MD [facility]5 [place], [place] 6[address] Assigned Rheumatology Provider 07/02/24 Jelena David OD [address] [facility] [place] [address] Ophthalmology 08/30/24 [place] [address] [place], [place] [address] Assigned Neuroscience Provider 09/30/24 Maru Man PA-C [address] [place] [address] Physician Poising Inspector Dermatology 10/03/24 documented as of this encounter
== END 2024-10-18 18:24 | disposition home or self-care (01) ==
PROVIDERS: Emergency Provider Emergency Medicine Emergency Medical Services
DX: R07.89 Other chest pain (principal)
CPT/HCPCS: 36415; 76604; 76705; 80048; 84484; 85025; 85651; 93005; 93308; 99284; 99285

== ENCOUNTER 2024-11-21 04:08 | Emergency (ER) | payer MEDICAID, SELFPAY ==
--- OUTSIDE RECORDS SUMMARY | 2024-11-21 04:11 | XMS_ITS | Encounter Summary ---
Author Organization [facility] Address [address] [place] [address] Care Team Providers Care Ios Developer Name Role Phone Diana Desir [facility] Unavailable Rain Galaviz PA-C Unavailable Tavia Wyatt MD Unavailable Erica Farrell APRN [employer] Unavailable Rich Barrett MD Unavailable [phone] Neil [place] MD Unavailable Diana Desir [facility] Unavailable Livan Sharif MD Unavailable Catherine Cm MD Unavailable + Valery Veronica PA-C Unavailable [phone] Brea Quinn HOUSEHOLD MANAGER [employer] Unavailable Brea Quinn HOUSEHOLD MANAGER [employer] Unavailable Jose Francisco Johnson MD Unavailable Alfonso Renteria MD Unavailable [phone] Esha Grimm PA-C Primary Care Provider Lomeli, Radha E HOUSEHOLD MANAGER [employer] Unavailable Jelena David OD Unavailable [phone] Esha Grimm PA-C Unavailable JeremíasValery damon PA-C Unavailable Rey Tay MD Unavailable Rocky Zepeda DO Unavailable Philip Dumont MD Unavailable Meredith Carrera PA-C Unavailable Neil [place] MD Unavailable Juan Pablo Emmanuel MD Unavailable Audrey Waite PA-C Unavailable JeremíasValery damon PA-C Unavailable Herminia Hatch MD Unavailable Jelena David OD Unavailable Juan Pablo Emmanuel MD Unavailable Maru Man PA-C Unavailable Maru Man PA-C Unavailable Jelena David OD Unavailable [phone] Encounter Details Date Type Department Care Team (Late st Contact Info) Description 04/24/2024 [facility] Medical Advice [facility] [address] [place] [address] [address] [place] [address] Radha Lomeli, HOUSEHOLD MA[employer]GER [employer] [address] [place] [address] Social History Tobacco Use Types Packs/Day [...] How often do you attend chur or druze services? 1 to 4 times [...] 02/07/2024 [facility] - [...] exercise at this level? 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 documented in this encounter Plan of Treatment Upcoming Encounters Date Type Department Care Team (Late st Contact Info) Description 11/21/2024 7:00 AM CDT Office Visit [facility] [address] [address] Maru Man PA-C [address] [address] 12/20/2024 2:30 PM CDT Office Visit [facility] [address] [place] [address] Esha Grimm PA-C [id number] [place] [address] 04/16/2025 11:00 AM CDT Virtual Visit [facility] [address] [phone] Meredith Carrera PA-C [address] [place] [address] 886215 documented as of this encounter Visit Diagnoses Not on filedocumented in this encounter Additional Health Concerns Infection Onset Date Last Indicated Resolved Time Rule Out COVID-19 10/04/2024 10/04/2024 10/05/2024 9:42 AM CDT Rule Out COVID-19 11/20/2024 11/20/2024 Assessment Noted Time PHQ-9 Depression Total Score: 3 02/07/20 24 9:33 AM CDT documented as of this encounter Care Teams Ios Developer Relationship Specialty Start Date End Date Esha Grimm PA-C [address] [place] [address] PCP - General Family Medicine 05/04/23 Diana Desir, [facility] 3033 [place] [address] Pharmacist Pharmacist 04/17/21 Rain Galaviz PA-C [address] [place] [address] [address] [place] [address] Physician Guard Captain Dermatology 04/28/21 Tavia Wyatt MD [address] [place] [address] [address] [place] [address] Dermatology 07/14/21 Erica Farrell APRN [employer] [address] [place] 372705 Nurse Practitioner Cardiovascular Disease 09/09/21 Rich Barrett MD [address] [place] [address]755 Physician Ophthalmology 01/21/22 Neil [place] MD 500 [place], [place] 869595 Dermatology 02/24/22 [facility] 3033 [place] [address] Assigned MTM Pharmacist 04/07/22 Livan Sharif MD [address] [place] 778285 Cardiovascular Disease 05/14/22 Catherine Cm MD [address] [facility] [address] [place] [address] Cardiovascular Disease 07/21/22 Valery Veronica PA-C 909 [place] [address] Physician Guard Captain Dermatology 07/21/22 Brea Quinn APRN [employer] [address] [place] [address] Nurse Practitioner Dermatology 09/21/22 Brea Quinn APRN [employer] 64[address] [place] [address] Assigned Surgical Provider 10/09/22 05/01/24 [place] [address] 300 [place] [address] Assigned Musculoskeletal Provider 10/09/22 05/01/24 Alfonso Renteria MD 5775 [facility] 200 [place], [place] 577756 Assigned Neuroscience Provider 04/02/23 09/29/24 Radha Lomeli APRN [employer] 6[address] [facility] [address] [place] 370845 Assigned Heart and Vascular Provider 05/28/23 Jelena David OD [address] [facility] [place] [address] Ophthalmology 06/15/23 Esha Grimm PA-C [address] [facility] [address] Assigned PCP 07/16/23 Valery Veronica PA-C [address] [place] [address] Physician Guard Captain Dermatology 09/19/23 Rey Tay MD [address] [place] [address] MD Gastroenterology 09/20/23 Rocky Zepeda DO [address] [place] [address] 690845 Physician Gastroenterology 09/20/23 Philip Dumont MD [address] [place] [address] 275745 Physician Ophthalmology 09/22/23 Meredtih Carrera PA-C [address] [place] [address] Assigned Gastroenterology Provider 11/01/23 Neil Kent MD [address] [address] Dermatology 11/02/23 [place] [address] [place] 7[address]87 Neurological Surgery 12/26/23 Audrey Waite PA-C [address] [place] [address] 640155 Physician Guard Captain Dermatology 02/28/24 Valery Veronica PA-C 7[address]36 [address] [place] [address] Physician Guard Captain Dermatology 04/10/24 Herminia Hatch MD [address] [place] [address] [id number] Assigned Rheumatology Provider 07/02/24 Jelena David OD [address] [place] [address] [place] [address] Ophthalmology 08/30/24 [place] [address] [place] [address] Assigned Neuroscience Provider 09/30/24 Maru Man PA-C [address] [place] [address] Physician Guard Captain Dermatology 10/03/24 Maru Man PA-C [address] [place] [address] Physician Guard Captain Dermatology 10/22/24 Jelena David OD [address] [place] [address] [place] [address] Assigned Surgical Provider 10/31/24 documented as of this encounter
--- OUTSIDE RECORDS SUMMARY | 2024-11-21 04:12 | XMS_ITS | Encounter Summary ---
Author Organization [place] Address [address] [place] [address] Care Team Providers Care Stove Cleaner Name Role Phone Diana Desir Stanislav [facility] Unavailable Rain Galaviz PA-C Unavailable Tavia Wyatt MD Unavailable Erica Farrell APRN PROCESS ENVIRONMENTAL TECHNICIAN Unavailable Rich Barrett MD Unavailable [phone] Neil Kent MD Unavailable ThangKendrickDiana Stanislav [facility] Unavailable [phone] Livan Sharif MD Unavailable Catherine Cm MD Unavailable + Valery Veronica-C Unavailable Brea Quinn MAINTAINER SEWER [employer] WATERWORKS PROCESS ENVIRONMENTAL TECHNICIAN Unavailable Esha Grimm PA-C Primary Care Provider Radha Lomeli APRN PROCESS ENVIRONMENTAL TECHNICIAN Unavailable Jelena David OD Unavailable Esha Grimm PA-C Unavailable [phone] Valery Veronica PA-C Unavailable Rey Tay MD Unavailable DuaneRocky Unavailable Philip Dumont MD Unavailable Meredith Carrera PA-C Unavailable Neil Kent MD Unavailable Juan Pablo Emmanuel MD Unavailable Audrey Waite PA-C Unavailable Valery Veronica PA-C Unavailable Herminia Hatch MD Unavailable Jelena David OD Unavailable Juan Pablo Emmanule MD Unavailable Maru ManC Unavailable [phone] Maru ManC Unavailable Encounter Details Date Type Department Care Team (Late st Contact Info) Description 10/24/2024 Orders Only (auto-released) [facility] [id number] [place] [phone] Anthony Doe PA-C [address] [place] [address] SVT (supraventricular tachycardia) Social History Tobacco Use Types Packs/Day Years [...] or neighbors? Three times a week 05/07/20 24 How often do you get togethe [...] Answer Date Recorded PHQ-2 Score 1 10/24/2024 [facility] ional [...] exercise at this level? 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 Gender Identity Female 03/02/2021 5:45 PM CDT Sexual Orientation Straight 02/28/2020 12 :51 AM CDT documented as of this encounter Plan of Treatment Upcoming Encounters Date Type Department Care Team (Late st Contact Info) Description 11/21/2024 7:00 AM CDT Office Visit [facility] [address] [phone] Maru Man PA-C [address] [address] 12/20/2024 2:30 PM CDT Office Visit [address] [phone] Esha Grimm PA-C [address] [place] [phone] 04/16/2025 11:00 AM CDT Virtual Visit [facility] [address] 4th [place] [phone] Meredith Carrera PA-C [address] [place] [address] documented as of this encounter Visit Diagnoses Diagnosis SVT (supraventricular tachycardia) Other specified cardiac dysrhythmias documented in this encounter Additional Health Concerns Assessment Noted Time PHQ-9 Depression Total Score: 5 10/25/19 25 10:38 AM CDT documented as of this encounter Care Teams Stove Cleaner Relationship Specialty Start Date End Date Esha Grimm PA-C [address] [place] [phone] PCP - General Family Medicine 05/04/23 Diana Desir, [facility] [address] [place] [address] Pharmacist Pharmacist 04/17/21 Rain Galaviz PA-C [address] [place] [address] [address] [facility] [place] [address] Physician Solar Development Engineer Dermatology 04/28/21 Tavia Wyatt MD [address] [place] [address] [address] [place] [address] Dermatology 07/14/21 Erica Farrell APRN PROCESS ENVIRONMENTAL TECHNICIAN [address] [phone] [place] [address] Nurse Practitioner Cardiovascular Disease 09/09/21 Rich Barrett MD [address] [facility] [place] 420935 Physician Ophthalmology 01/21/22 Neil Kent MD 500 [place], [place] 526455 Dermatology 02/24/22 Diana Desir, [facility] [address] [place], [place] 660666 Assigned [facility] Pharmacist 04/07/22 Livan Sharif MD [address] [address] Cardiovascular Disease 05/14/22 Catherine Cm MD [address] [place] [address] Cardiovascular Disease 07/21/22 Valery Veronica, PA-C [address] [place] [address] 841335 Physician Solar Development Engineer Dermatology 07/21/22 Brea Quinn APRN PROCESS ENVIRONMENTAL TECHNICIAN [address] [place] [address] 879365 Nurse Practitioner Dermatology 09/21/22 Radha Lomeli APRN PROCESS ENVIRONMENTAL TECHNICIAN [address] 561585 Assigned Heart and Vascular Provider 05/28/23 Frankie Jelena Templetone, SONJA [address] [facility] [place] [address] MD Ophthalmology 06/15/23 Esha Grimm PA-C [address] [place] [phone] Assigned PCP 07/16/23 Valery Veronica PA-C [address] [place] [address] 543195 Physician Solar Development Engineer Dermatology 09/19/23 Rey Tay MD [address] [place] [address] 212245 MD Gastroenterology 09/20/23 Rocky Zepeda DO [address] [place] [address] 966625 Physician Gastroenterology 09/20/23 Philip Dumont MD [address] [place] [address] 184095 Physician Ophthalmology 09/22/23 Meredith Carrera PA-C [address] [place] [address] 608405 Assigned Gastroenterology Provider 11/01/23 Neil Kent MD [address] 632720 Dermatology 11/02/23 [place] [address] [place] [address] Neurological Surgery 12/26/23 Audrey Waite PA-C 500 [place] [address] Physician Solar Development Engineer Dermatology 02/28/24 Valery Veronica PA-C 837429 [place] [address] Physician Solar Development Engineer Dermatology 04/10/24 Herminia Hatch MD [address] [place] [address] Assigned Rheumatology Provider 07/02/24 Jelena David OD [address] [place] [address] [place] [address] Ophthalmology 08/30/24 [place] [address] [place] [address] Assigned Neuroscience Provider 09/30/24 Maru Man PA-C [address] [place] [place] [address] Physician Solar Development Engineer Dermatology 10/03/24 Maru Man PA-C [address] [place] [place] [address] Physician Solar Development Engineer Dermatology 10/22/24 documented as of this encounter
--- OUTSIDE RECORDS SUMMARY | 2024-11-21 04:12 | XMS_ITS | Encounter Summary ---
Author Organization [place] Address [address] [place] [address] Care Team Providers Care Center Medical Director Name Role Phone Diana Desir Stanislav [facility] Unavailable Rain Galaviz PA-C Unavailable Tavia Wyatt MD Unavailable Erica Farrell APRN ASSISTANT STATISTICIAN Unavailable Rich Barrett MD Unavailable [phone] Neil Kent MD Unavailable ThangKendrickDiana Stanislav [facility] Unavailable [phone] Livan Sharif MD Unavailable Catherine Cm MD Unavailable + Valery Veronica-C Unavailable Brea Quinn REVENUE DIRECTOR ASSISTANT STATISTICIAN Unavailable Esha Grimm PA-C Primary Care Provider Radha Lomeli APRN ASSISTANT STATISTICIAN Unavailable Jelena David OD Unavailable Esha Grimm PA-C Unavailable [phone] Valery Veronica PA-C Unavailable [phone] Rey Tay MD Unavailable Duane Rocky Unavailable Philip Dumont MD Unavailable [phone] PinoMeredith paez PA-C Unavailable [phone] Neil Kent MD Unavailable Juan Pablo Emmanuel MD Unavailable [phone] Audrey Waite PA-C Unavailable [phone] Valery Veronica PA-C Unavailable [phone] Herminia Hatch MD Unavailable Jelena David OD Unavailable Juan Pablo Emmanuel MD Unavailable [phone] Maru ManC Unavailable [phone] Maru Man PA-C Unavailable [phone] Encounter Details Date Type Department Care Team (Latest Contact Info) Description 10/28/2024 Travel Social History Tobacco Use Types Packs/Day [...] Answer Date Recorded PHQ-2 Score 1 10/24/2024 [facility] - Occupational [...] exercise at this level? 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 [address] [place] [address] Esha Grimm PA-C [id number] [place] [phone] 04/16/2025 11:00 AM CDT Virtual Visit [facility] [address]th [place] [phone] Meredith Carrera PA-C 909 [place] [address] documented as of this encounter Visit Diagnoses Not on filedocumented in this encounter Additional Health Concerns Assessment Noted Time PHQ-9 Depression Total Score: 5 10/25/19 25 10:38 AM CDT documented as of this encounter Care Teams Center Medical Director Relationship Specialty Start Date End Date Esha Grimm PA-C [address] [place] [phone] PCP - General Family Medicine 05/04/23 Diana Desir, [facility] [address] [place] [address] Pharmacist Pharmacist 04/17/21 Rain Galaviz PA-C [address] [place] [address] [address] [facility] [place] [address] Physician Clinical Business Manager Dermatology 04/28/21 Tavia Wyatt MD [address] [place] [address] [address] [place] [address] Dermatology 07/14/21 Erica Farrell APRN ASSISTANT STATISTICIAN [address] [place] [address] Nurse Practitioner Cardiovascular Disease 09/09/21 Rich Barrett MD [address] [place] [address] Physician Ophthalmology 01/21/22 Neil Kent MD 500 [place], [place] 843495 Dermatology 02/24/22 Diana Desir, [facility] [address] [place] [address] Assigned [facility] Pharmacist 04/07/22 Livan Sharif MD [address] [place], [place] 274325 Cardiovascular Disease 05/14/22 Catherine Cm MD [address] [place], [place] 408845 Cardiovascular Disease 07/21/22 Valery Veronica PA-C 909 [place], [place] 671565 Physician Clinical Business Manager Dermatology 07/21/22 Brea Quinn APRN ASSISTANT STATISTICIAN 500 [place] [address] Nurse Practitioner Dermatology 09/21/22 Radha Lomeli APRN ASSISTANT STATISTICIAN [address] [place], [place] 327955 Assigned Heart and Vascular Provider 05/28/23 Jelena David OD [address] [facility] [place] [address] Ophthalmology 06/15/23 Esha Grimm, PA-C [address] [place] [phone] Assigned PCP 07/16/23 Valery Veronica PA-C [address] [place] [address] Physician Clinical Business Manager Dermatology 09/19/23 Rey Tay MD [address] [place] [address] MD Gastroenterology 09/20/23 Rocky Zepeda DO [address] [place] [address] Physician Gastroenterology 09/20/23 Philip Dumont MD [address] [place] [address] Physician Ophthalmology 09/22/23 Meredith Carrera PA-C [address] [place] [address] 937165 Assigned Gastroenterology Provider 11/01/23 Neil Kent MD [address] [address] Dermatology 11/02/23 [place] [address] [place] [address] Neurological Surgery 12/26/23 Audrey Waite PA-C [address] [place] [address] Physician Clinical Business Manager Dermatology 02/28/24 Valery Veronica PA-C [address] [place] [address] Physician Clinical Business Manager Dermatology 04/10/24 Herminia Hatch MD [facility] [place], [place] 90982125 Assigned Rheumatology Provider 07/02/24 Jelena David OD [address] [facility] [place] [address] Ophthalmology 08/30/24 [place] [address] [place] [address] Assigned Neuroscience Provider 09/30/24 Maru Man PA-C [address] [place] [address] Physician Clinical Business Manager Dermatology 10/03/24 Maru Man PA-C [address] [place] [address] Physician Clinical Business Manager Dermatology 10/22/24 documented as of this encounter
--- OUTSIDE RECORDS SUMMARY | 2024-11-21 04:12 | XMS_ITS | Encounter Summary ---
Author Organization [place] Address [address] [place] [address] Care Team Providers Care Car Usher Name Role Phone Diana Desir Stanislav [facility] Unavailable Rain Galaviz PA-C Unavailable [phone] Tavia Wyatt MD Unavailable Erica Farrell APRN FLOW SPECIALIST Unavailable Rich Barrett MD Unavailable [phone] Neil Kent MD Unavailable ThangKendrickDiana Stanislav [facility] Unavailable [phone] Livan Sharif MD Unavailable Catherine Cm MD Unavailable + Valery Veronica-C Unavailable Brea Quinn EXTRACTOR AND WRINGER OPERATOR FLOW SPECIALIST Unavailable Ehsa Grimm PA-C Primary Care Provider [phone] Radha Lomeli APRN FLOW SPECIALIST Unavailable Jelena David OD Unavailable Esha Grimm PA-C Unavailable [phone] Valery Veronica PA-C Unavailable [phone] Rey Tay MD Unavailable Duane Rocky Unavailable Philip Dumont MD Unavailable [phone] PinoMeredith paez PA-C Unavailable [phone] Neil Kent MD Unavailable Juan Pablo Emmanuel MD Unavailable [phone] Audrey Waite PA-C Unavailable [phone] Valery Veronica PA-C Unavailable [phone] Herminia Hatch MD Unavailable Jelena David OD Unavailable Juan Pablo Emmanuel MD Unavailable [phone] Maru ManC Unavailable [phone] Maru Man PA-C Unavailable [phone] Encounter Details Date Type Department Care Team (Latest Contact Info) Description 10/24/2024 Travel Social History Tobacco Use Types Packs/Day [...] Answer Date Recorded PHQ-2 Score 1 10/24/2024 [facility] - Occupational [...] exercise at this level? 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 Gender Identity Female 03/02/2021 5:45 PM CDT Sexual Orientation Straight 02/28/2020 12 :51 AM CDT documented as of this encounter Plan of Treatment Upcoming Encounters Date Type Department Care Team (Late st Contact Info) Description 11/21/2024 7:00 AM CDT Office Visit [facility] [address] [phone] Maru Man PA-C [address] [place] [address] 12/20/2024 2:30 PM CDT Office Visit [facility] [address] [place] [address] Esha Grimm PA-C [address] [place] [phone] 04/16/2025 11:00 AM CDT Virtual Visit [facility] [address] [place] [phone] Meredith Carrera PA-C 909 [place] [address] documented as of this encounter Visit Diagnoses Not on filedocumented in this encounter Additional Health Concerns Assessment Noted Time PHQ-9 Depression Total Score: 5 10/25/19 25 10:38 AM CDT documented as of this encounter Care Teams Car Usher Relationship Specialty Start Date End Date Esha Grimm PA-C [address] [place] [phone] PCP - General Family Medicine 05/04/23 Diana Desir, [facility] [address] [place] [address] Pharmacist Pharmacist 04/17/21 Rain Galaviz PA-C [address] [place] [address] [address] [facility] [place] [address] Physician Proposition Player Dermatology 04/28/21 Tavia Wyatt MD [address] [place] [address] [address] [place] [address] Dermatology 07/14/21 Erica Farrell APRN FLOW SPECIALIST [address] [place] [address] Nurse Practitioner Cardiovascular Disease 09/09/21 Rich Barrett MD [address] [place] [address] Physician Ophthalmology 01/21/22 Neil Kent MD 500 [place], [place] 976185 Dermatology 02/24/22 Diana Desir, [facility] 30[address] [place] [address] Assigned MTM Pharmacist 04/07/22 Livan Sharif MD [address] [place], [place] 493435 Cardiovascular Disease 05/14/22 Catherine Cm MD [address] [place], [place] 471495 Cardiovascular Disease 07/21/22 Valery Veronica PA-C 909 [place], [place] 356415 Physician Proposition Player Dermatology 07/21/22 Brea Quinn APRN FLOW SPECIALIST 500 [place] [address] Nurse Practitioner Dermatology 09/21/22 Radha Lomeli APRN FLOW SPECIALIST [address] [place], [place] 036175 Assigned Heart and Vascular Provider 05/28/23 Jelena David OD [address] [place] [address] Ophthalmology 06/15/23 Esha Grimm, PA-C [address] [place] [address]-945983 Assigned PCP 07/16/23 Valery Veronica PA-C [address] [place] [address] Physician Proposition Player Dermatology 09/19/23 Rey Tay MD [address] [place] [address] MD Gastroenterology 09/20/23 Rocky Zepeda DO [address] [place] [address] Physician Gastroenterology 09/20/23 Philip Dumont MD [address] [place] [address] Physician Ophthalmology 09/22/23 Meredith Carrera PA-C [address] [place] [address] 882865 Assigned Gastroenterology Provider 11/01/23 Neil Kent MD [address] [address] Dermatology 11/02/23 [place] [address] [place] [address] Neurological Surgery 12/26/23 Audrey Waite PA-C [address] [place] [address] Physician Proposition Player Dermatology 02/28/24 Valery Veronica PA-C [address] [place] [address] Physician Proposition Player Dermatology 04/10/24 Herminia Hatch MD [facility] [place], [place] 41328125 Assigned Rheumatology Provider 07/02/24 Jelena David OD [address] [facility] [place] [address] Ophthalmology 08/30/24 [place] [address] [place] [address] Assigned Neuroscience Provider 09/30/24 Maru Man PA-C [address] [place] [address] Physician Proposition Player Dermatology 10/03/24 Maru Man PA-C [address] [place] [address] Physician Proposition Player Dermatology 10/22/24 documented as of this encounter
--- OUTSIDE RECORDS SUMMARY | 2024-11-21 04:12 | XMS_ITS | Encounter Summary ---
Author Organization [facility] Address [address] [place] [address] Care Team Providers Care Therapeutic Recreation Leader Name Role Phone Diana Desir Stanislav [facility] Unavailable Rain Galaviz PA-C Unavailable Tavia Wyatt MD Unavailable Erica Farrell APRN DIRECTOR OF RETAIL MARKETING Unavailable Rich Barrett MD Unavailable [phone] Neil Kent MD Unavailable ThangKendrickDiana Stanislav [facility] Unavailable [phone] Livan Sharif MD Unavailable Catherine Cm MD Unavailable + Valery Veronica-C Unavailable Brea Quinn ENGINEER SYSTEM ADMINISTRATOR DIRECTOR OF RETAIL MARKETING Unavailable [phone] Esha Grimm PA-C Primary Care Provider Radha Lomeli APRN DIRECTOR OF RETAIL MARKETING Unavailable Jelena David OD Unavailable Esha Grimm PA-C Unavailable [phone] Valery Veronica PA-C Unavailable Rey Tay MD Unavailable ZepedaRocky Unavailable Philip Dumont MD Unavailable [phone] LoreMeredith mayers PA-C Unavailable [phone] Neil Kent MD Unavailable Juan Pablo Luong MD Unavailable Audrey Waite PA-C Unavailable Valery Veronica PA-C Unavailable [phone] Herminia Hatch MD Unavailable Jelena David OD Unavailable Juan Pablo Luong MD Unavailable [phone] Maru Man-C Unavailable [phone] Maru Man-C Unavailable [phone] Reason for Visit * Reason Onset Date Comments Previsit 10/23/2024 Encounter Details Date Type Department Care Team (Late st Contact Info) Description 10/23/2024 PRE VISIT [facility] Neurology [address], [address] [place] [address] Johnny Penn MD [address] [facility] [place] [phone] Previsit Social History Tobacco Use Types Packs/Day [...] do you attend chur or episcopal services? 1 to 4 times [...] Answer Date Recorded PHQ-2 Score 1 02/07/2024 [facility] [...] exercise at this level? 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 Gender Identity Female 03/02/2021 5:45 PM CDT Sexual Orientation Straight 02/28/2020 12 :51 AM CDT documented as of this encounter Miscellaneous Notes * Telephone Encounter - Travonchuck Eladio - 10/11/2024 1:33 PM CDT SPINE PATIENTS - NEW PROTOCOL PREVISIT RECORDS RECEVEIVED FROM: ref by JUAN PABLO LUONG REASON FOR VISIT: Paresthesia of arm PROVIDER: Isamar DATE OF APPT: 10/23/2024 NOTES (FOR ALL VISITS) STATUS DETAILS OFFICE NOTE from referring provider Referral and notes in chart OFFICE NOTE from other specialist DISCHARGE SUMMARY from hospital DISCHARGE REPORT from ER OPERATIVE REPORT EMG REPORT Injection Physical therapy internal PT last completed 05/14/2024 IMAGING (FOR ALL VISITS) STATUS DETAILS MRI (HEAD, NECK, SPINE) internal MR cervical 01/06/2024 XRAY (SPINE) *NEUROSURGERY* CT (HEAD, NECK, SPINE) Does patient have C2C? Year last updated Action YES [x] 2023 Please update at appointment if outdated more than 5 years NO [] N/A Please complete C2C at appointment documented in this encounter Plan of Treatment Upcoming Encounters Date Type Department Care Team (Late st Contact Info) Description 11/21/2024 7:00 AM CDT Office Visit [address] [phone] Maru Man PA-C [address] [place] [address] [phone] 12/20/2024 2:30 PM CDT Office Visit [facility] [address] [place] [address] Esha Grimm PA-C [address] [place] [address] 04/16/2025 11:00 AM CDT Virtual Visit [facility] [address] [place] [phone] Meredith Carrera PA-C [address] [place] [address] 438015 documented as of this encounter Visit Diagnoses Not on filedocumented in this encounter Additional Health Concerns Assessment Noted Time PHQ-9 Depression Total Score: 3 02/07/20 24 9:33 AM CDT documented as of this encounter Care Teams Therapeutic Recreation Leader Relationship Specialty Start Date End Date Esha Grimm PA-C [address] [place] [address] PCP - General Family Medicine 05/04/23 Diana Desir [facility] [address] [place] [address] Pharmacist Pharmacist 04/17/21 Rain Galaviz PA-C [address] [place] [address] [address] [facility] [place] [place] [address] Physician Assistant Education Director Dermatology 04/28/21 Tavia Wyatt MD [address] [place] [address] [address] [facility] [address] Dermatology 07/14/21 Erica Farrell APRN DIRECTOR OF RETAIL MARKETING [address] [place] [id number] Nurse Practitioner Cardiovascular Disease 09/09/21 Rich Barrett MD [address] [place] [address] Physician Ophthalmology 01/21/22 Neil Kent MD [address] [place] [address] Dermatology 02/24/22 Diana Desir, [facility] [address] [place] [address] Assigned MTM Pharmacist 04/07/22 Livan Sharif MD [address] [facility] [address] [place] [phone] Cardiovascular Disease 05/14/22 Catherine Cm MD [address] [place] [address] Cardiovascular Disease 07/21/22 Valery Veronica PAUcheC [address] [place] [address] Physician Assistant Education Director Dermatology 07/21/22 Brea Quinn APRN DIRECTOR OF RETAIL MARKETING [address] [place] [address] [phone] Nurse Practitioner Dermatology 09/21/22 Radha Lomeli APRN DIRECTOR OF RETAIL MARKETING [address] [place] [address] Assigned Heart and Vascular Provider 05/28/23 Jelena David OD [facility] [place] [address] Ophthalmology 06/15/23 Esha Grimm PA-C [address] [place] [phone] Assigned PCP 07/16/23 Valery Veronica PA-C [address] [place] [address] [phone] Physician Assistant Education Director Dermatology 09/19/23 Rey Tay MD [address] [place] [address] 748645 Gastroenterology 09/20/23 Rocky Zepeda DO [address] [place] [address] 128755 Physician Gastroenterology 09/20/23 Philip Dumont MD [address] [place] [address] Physician Ophthalmology 09/22/23 Meredith Carrera PA-C [address] [place] [address] 207195 Assigned Gastroenterology Provider 11/01/23 Neil Kent MD [address] [address] MD Dermatology 11/02/23 [place] [address] [place] [address] [address] Neurological Surgery 12/26/23 Audrey Waite PA-C [address] [place] [address] Physician Assistant Education Director Dermatology 02/28/24 Valery Veronica PA-C [id number] [address], [place] [address] Physician Assistant Education Director Dermatology 04/10/24 Herminia Hatch MD [address] [place] [address] Assigned Rheumatology Provider 07/02/24 Jelena David OD [address] [place] [address] [place] [address] Ophthalmology 08/30/24 [place] [address] [place] [address] Assigned Neuroscience Provider 09/30/24 Maru Man PA-C [address] [address] Physician Assistant Education Director Dermatology 10/03/24 Maru Man PA-C [address] [place] [address] Physician Assistant Education Director Dermatology 10/22/24 documented as of this encounter
--- OUTSIDE RECORDS SUMMARY | 2024-11-21 04:12 | XMS_ITS | Clinical Summary ---
Author Organization Black Address [address] [place] [id number] Care Team Providers Care [facility] Adviser Name Role Phone Diana Desir [facility] Unavailable [phone] Rain Galaviz PA-C Unavailable Tavia Wyatt MD Unavailable Erica Farrell APRN CREDIT RATING CHECKER Unavailable Rich Barrett MD Unavailable [phone] Neil Kent MD Unavailable ThangKendrickDiana Stanislav [facility] Unavailable [phone] Livan Sharif MD Unavailable Catherine Cm MD Unavailable + Valery Veronica-C Unavailable Brea Quinn [employer] MANAGER PRODUCTION CREDIT RATING CHECKER Unavailable Esha Grimm PA-C Primary Care Provider Radha Lomeli APRN CREDIT RATING CHECKER Unavailable Jelena David OD Unavailable Esha Grimm PA-C Unavailable [phone] Jeremías, Valery D PA-C Unavailable Rey Tay MD Unavailable DuaneRocky Unavailable Philip Dumont MD Unavailable LoreMeredith mayers PA-C Unavailable [phone] Neil Kent MD Unavailable Juan Pablo Emmanuel MD Unavailable Audrey Waite PA-C Unavailable Valery Veronica PA-C Unavailable Herminia Hatch MD Unavailable Jelena David OD Unavailable [phone] Juan Pablo Emmanuel MD Unavailable Maru Man PA-C Unavailable Maru Man-C Unavailable Jelena David OD Unavailable [phone] Allergies Active Allergy Reactions Criticality Noted Date Comments Vancomycin 04/26/2022 Medications levonorgestrel (MIRENA) 52 MG (20 mcg/day) IUD by Intrauterine route once Active clindamycin (CLEOCIN T) 1 % external lotionIndicatio ns:Acne, unspecified acne type Apply topically 2 times daily 60 mL 1 4 Active tretinoin (RETIN-A) 0.05 % external creamIndication s:Acne, unspecified acne type Apply topically at bedtime 45 g 4 Active Multiple Vitamin (MULTIVITAMIN ADULT PO) [...] prevent flares. 120 mL 11 4 Active metoprolol succinate ER (TOPROL XL) 25 MG 24 hr tabletIndicatio ns:Palpitations Take 0.5 tablets (12.5 mg) by mouth daily. 45 tablet 3 4 Active tacrolimus (PROTOPIC) 0.1 % external ointmentIndicat ions:Psoriasis Apply thin layer to psoriasis on thinner skin of face/genitals up to twice daily as needed. 60 g 4 Active omeprazole (PRILOSEC) [address] capsuleIndicati ons:Epigastric pain Take 1 capsule (40 mg) by mouth daily. 90 capsule 2 5 Active PARoxetine (PAXIL) 40 MG tabletIndicatio ns:Anxiety Take 1 tablet (40 mg) by mouth every morning. NEED APPT FOR FURTHER REFILLS. 30 tablet 1 5 Active triamcinolone (KENALOG) 0.1 % external ointmentIndicat ions:Psoriasis Apply topically 2 times daily. To psoriasis on body or arms/legs until healed then stop 80 g 5 Active fluconazole (DIFLUCAN) 150 MG tabletIndicatio ns:Yeast infection of the vagina Take 1 tablet (150 mg) by mouth every 3 days for 2 doses. 2 tablet 5 11/25/19 25 Active Hospital, Clinic, or Other Facility Administered [...] available in ED consider consultation with ED Human Resources District Manager. Relevant Medical History (at time Care [...] to initiation of Care Plan: 11 Total [facility] Hospital Admissions in 12 months prior to initiation of Care Plan: 0 (she has technically had 2 admissions due to related issues with OBGYN) Expected home rescue plan: Metoprolol 12.5mg PRN PCP: Marija Edgar APRN CNP - Family Medicine - [facility] Specialists: Dr. Galo Burrell - Cardiology - [facility] Heart Clinic Dee Dotson - Neurology - [facility] Epilepsy Care Care Coordination: Has worked with Community Health Worker in past - ARACELIS Parker, Clinical Care Coordination - [facility] ([place], [place] and [place]) - Follow up plan after an ED visit: Marija Edgar APRN CNP - Family Medicine - [facility] Initiated: 2020 Problem [...] (05/27/2020): Added automatically from request for surgery [id number] Left ureteral stone 05/27/2020 Overview (05/27/2020): Added automatically from request for surgery [id number] Head ache 02/18/2020 Seizure 05/02/2019 Depressed 05/02/2019 Anxiety 05/02/2019 Tobacco abuse counseling 05/02/2019 Psoriasis 05/02/2019 Resolved Problems Problem Noted Date Diagnosed Date Resolved Date Neck pain 08/25/2022 06/29/2024 Lower back pain 08/25/2022 08/17/2023 Term 01/13/2021 10/11/2022 Encounter for triage in patient 12/09/2020 04/18/2023 Asthma 06/04/2020 02/07/2024 Encounters Date Type Department Care Team Description 11/21/2024 Telephone [facility] Nurse Advisors [facility] [place] [phone] Celine Vogel RN General 11/20/2024 11:20 AM CDT Ancillary Procedure [address] [address] Estephania Flannery NP Acute cough 11/20/2024 11:15 AM CDT Office Visit [facility] Urgent Care [address] [address] Estephania Flannery NP Yeast infection of the vagina (Primary Dx); Fever, unspecified; Acute cough; Screening examination for STI; Dysuria; Viral URI with cough; Irregular bowel habits 11/20/2024 Travel 11/09/2024 MyC Medical Advice [facility] Gastroenterology Clinic [address] [phone] Apolinar Gresham 11/07/2024 Telephone [facility] Gastroenterology Clinic [address] [phone] Meredith Carrera PA-C Appointment 11/02/2024 7:45 AM CDT Virtual Visit [facility] Gastroenterology [address] [phone] Meredith Carrera PA-C Bloating symptom (Primary Dx); Irregular bowel habits; Eosinophilic esophagitis 10/28/2024 3:58 PM CDT - 10/28/2024 6:57 PM CDT Emergency [facility] Emergency Dept [address] [place] [phone] [phone] Jeffrey Fofana MD Acute chest pain Discharge Disposition: Home or Self Care 10/28/2024 Travel 10/24/2024 4:00 PM CDT Office Visit [address] [place] [address] Jelena David, OD Hyperopia of both eyes with astigmatism (Primary Dx); Headache, unspecified headache type 10/24/2024 11:00 AM CDT Office Visit [address] [address] Anthony Doe PA-C Sore throat (Primary Dx); Abdominal bloating; SVT (supraventricular tachycardia) 10/24/2024 Orders Only (auto-released) [address] [address] Anthony Doe PA-C SVT (supraventricular tachycardia) 10/24/2024 Travel 10/23/2024 PRE VISIT [facility] Neurology [facility] [address], [address] [place] [phone] Johnny Penn MD Previsit 10/21/2024 Travel 10/18/2024 Telephone [facility] Gastroenterology Clinic [place] [address] 4[address] [place] [address] Meredith Carrera PA-C Appointment (10/31/2024) 10/18/[address] [address] Brea Quinn APRN CREDIT RATING CHECKER Refill Request (Triamcinolone Acetonide 0.1% ointment) 10/17/[address] [address] Esha Grimm PA-C Medication Refill 10/11/2024 MyC Medical Advice [address] [phone] Diana Desir, [facility] 10/10/2024 MyC Medical Advice [facility] Heart [facility] [address] [facility] [address] [place] [address] Carley Myles RN 10/09/2024 Telephone [facility] Heart [facility] [address] [facility] [facility] [address] [place] [phone] Livan Sharif MD Call Back (Heart Monitor) 10/04/2024 10:00 AM CDT Office Visit [facility] Urgent Care [place] [address] [place] [address] Audrey Díaz PA-C Throat pain (Primary Dx) 10/04/2024 Travel 10/02/2024 MyC Medical Advice [address] [address] Esha Grimm PA-C 10/01/2024 MyC Medical Advice [facility] [address] [facility] [address] [place] [phone] Marija Bailey RN 10/01/2024 Telephone [facility] [address] [place] [address] [address] [place] [phone] Fabiano Correa, BRYCE Orders (Zio Patch) 09/28/[address] [place] [phone] Livan Sharif MD Allergies (Allergic reaction to zio patch ) 09/20/2024 1:45 PM CDT Lab [facility] [phone] [place] [phone] Vaginal discharge 09/20/2024 Travel 09/19/2024 9:40 PM CDT E-Visit [address] [phone] Esha Grimm PA-C Vaginal Discharge (Entered automatically b... 09/17/[address] [address] Anthony Doe PA-C Medication Refill 09/10/2024 Orders Only (auto-released) [address] [place] [phone] Fabiano Correa NP Palpitations 09/07/2024 MyC Medical Advice [facility] Gastroenterology Clinic [address] [phone] Meredith Carrera PA-C 09/07/2024 MyC Medical Advice [facility] [address] [place] [address] [address] [place] [phone] Fabiano Correa NP Palpitations (Primary Dx) 08/27/2024 9:06 PM NEUROPSYCHIATRIC AIDE - 08/27/2024 10:09 PM NEUROPSYCHIATRIC AIDE Emergency [facility] Emergency Dept [address] [place] [phone] Fady Vega MD Palpitations Discharge Disposition: Home or Self Care 08/27/2024 Travel from Last 3 Months Immunizations Immunization Administration Dates Next Due DTAP (<7y) 11/23/2004, 1,2000,06/23 Flu, Unspecified 05/26/2009, 7,07/22/2003,06/03 HIB (PRP-T) 2000,2000,2000 HPV Quadrivalent 03/01/2012,10/27/2011, 2 HepB, Unspecified 08/07/2001,03/28/2001,11/05/19 01 Hepatitis A (Vaqta/Havrix)(P eds 12m-18y) 03/01/2012,08/10/2011 Hepatitis A Vac Ped/Adol-3 Dose 03/01/2012,08/10 Hepatitis B, Peds (Engerix-B/Recombivax HB) 08/07/2001,03/28/2001,2000 Influenza (H1N1) 06/06/2009 Influenza (prior to 2023) 07/14/2012,,05/13/2010,05/26,07/22/2003 Influenza Vaccine >6 months,quad, PF ,03/27/2020,05/02/2019,05/16,04/12/2016,08/12/2014,04/24/2013 Influenza Vaccine IM Ages 6- 35 Months 4 Valent (PF) 04/24/2013 Influenza, Split Virus, Triv alent, Pf (Fluzone\Fluarix) 07/14/2012,05/25/2011,05/13/2010 MMR (MMRII) 01/15/2021,11/23/2004,08/07/2001 Meningococcal ACWY (Menactra ) 08/10/2011 Meningococcal ACWY (Menveo ) 05/16/2017 Nasal Influenza Vaccine 2-49 (FluMist) 7 Pneumococcal (PCV 7) 2000,2000,06/23 Pneumococcal 23 valent 09/22/2021 Poliovirus, inactivated (IPV) 11/23/2004 ,03/28/2001,2000,06/23 TDAP Vaccine (Adacel) 11/11/2020,08/10/2011 TRIHIBIT (DTAP/HIB, <7y) 08/07/2001 Varicella (Varivax) 03/05/2013,10/17/2001 Family History Medical History Relation Comments [...] Answer Date Recorded PHQ-2 Score 1 10/24/2024 [facility] ional [...] exercise at this level? 20 min 05/07/2024 Kirkland Depression Scale Answer Date Recorded Kirkland Depression Score 5 01/14/2021 Last EPDS Self [...] PM CDT Legal Sex Female 4:13 AM NEUROPSYCHIATRIC AIDE Gender Identity Female 03/02/2021 5:45 PM [...] Mass Index 33.14 11/20/2024 10:36 AM CDT Plan of Treatment Upcoming Encounters Date Type Department Care Team (Late st Contact Info) Description 11/21/2024 7:00 AM CDT Office Visit [address] [phone] Maru Man PA-C [address] [place] [address] 12/20/2024 2:30 PM CDT Office Visit [facility] [address] [place] [address] Esha Grimm PA-C [address] [place] [address] 04/16/2025 11:00 AM CDT Virtual Visit [facility] Gastroenterology Clinic [place] [address] [facility] 4th [place] [address] Meredith Carrera PA-C [address] [place], [place] [phone] Health Maintenance Due Date Last Done Comments Pneumococcal Vaccine: Pediatrics (0 to 5 Years) and At-Risk Patients (6 to 49 Years) (2 of 2 - PCV) 09/22/2022 09/22/2021, 2000, 2000, Additional history exists ANNUAL REVIEW OF HM ORDERS 03/10/202403/10, 09/22/2021, 06/24/2020 COVID-19 Vaccine ( season) 2024 INFLUENZA VACCINE (Season Ended) 2025 04/02/2021, 03/27/2020, 05/02/2019, Additional history exists PHQ-9 04/25/2025 10/24/2024, 07/3 , 06/20/2023, Additional history exists YEARLY PREVENTIVE VISIT 05/08/2025 05/08/20, 03/10/2023, 09/22/2021, Additional history exists CHLAMYDIA SCREENING 09/20/2025 09/20/2024, 08/28/2024, 08/03/2024, Additional history exists PAP 05/01/2027 05/01/2024, 09/22/2021 ADVANCE CARE PLANNING 05/08/2029 05/08/2024 DTAP/TDAP/TD IMMUNIZATION (8 - Td or Tdap) 11/11/2030 11/11/2020, 08/10/2011, 11/23/2004, Additional history exists ZOSTER IMMUNIZATION (1 of 2) 2050 HEPATITIS B IMMUNIZATION Completed 002, 08/07/2001, 03/28/2001, Additional history exists HPV IMMUNIZATION Completed 03/01/2012, , 08/10/2011 MENINGITIS IMMUNIZATION Completed 05/16/2017, 08/10 DEPRESSION ACTION PLAN Completed 04/17/2021, 2020 HEPATITIS C SCREENING Completed 08/28/2024 , 08/03/2024, 05/31/2024, Additional history exists HIV SCREENING Completed 11/20/2024, 08/11, 08/03/2024, Additional history exists MENINGITIS B IMMUNIZATION Aged Out No longer eligible based on patient's age to complete this topic Procedures Procedure Name Priority Date/Time Associated Diagnosis Comments HIV ANTIGEN ANTIBODY COMBO Routine 11/20/2024 3:15 PM CDT Screening examination for STI WET PREPARATION Routine 11/20/2024 11:45 AM CDT Dysuria UA MICROSCOPIC WITH REFLEX TO CULTURE Routine 11/20/2024 11:45 AM CDT Dysuria ROUTINE UA WITH MICROSCOPIC REFLEX TO CULTURE Routine 11/20/2024 11:45 AM CDT Dysuria WBC AND DIFFERENTIAL Routine 11/20/2024 11:41 AM CDT Fever, unspecified Acute cough WBC AND DIFFERENTIAL Routine 11/20/2024 11:41 AM CDT Fever, unspecified Acute cough TREPONEMA ABS W REFLEX TO RPR AND TITER Routine 11/20/2024 11:40 AM CDT Screening examination for STI XR CHEST 2 VIEWS STAT 11/20/2024 11:2 0 AM CDT Acute cough INFLUENZA A/B ANTIGEN Routine 11/20/2024 10:45 AM CDT Fever, unspecified TROPONIN T, HIGH SENSITIVITY STAT 10/28/2024 6:23 PM CDT XR CHEST 2 VIEWS STAT 10/28/2024 5:41 PM CDT EKG 12-LEAD, TRACING ONLY STAT 10/28/2024 5:27 PM CDT D DIMER QUANTITATIVE STAT 10/28/2024 4:20 PM CDT HCG QUALITATIVE STAT 10/28/2024 4:20 PM CDT CBC WITH PLATELETS & DIFFERENTIAL STAT 10/28/2024 4:19 PM CDT CBC WITH PLATELETS AND DIFFERENTIAL STAT 10/28/2024 4:19 PM CDT TROPONIN T, HIGH SENSITIVITY STAT 10/28/2024 4:19 PM CDT BASIC METABOLIC PANEL STAT 10/28/2024 4:19 PM CDT EKG 12-LEAD, TRACING ONLY STAT 10/28/2024 3:14 PM CDT PA REFRACTION Routine 10/24/2024 4:23 PM CDT Hyperopia of both eyes with astigmatism Headache, unspecified headache type EYE EXAM (SIMPLE-NONBILLABLE) Routine 10/24/2024 4:23 PM CDT Hyperopia of both eyes with astigmatism Headache, unspecified headache type UA MICROSCOPIC WITH REFLEX TO CULTURE Routine 10/24/2024 11:16 AM CDT Abdominal bloating UA MACROSCOPIC WITH REFLEX TO MICRO AND CULTURE Routine 10/24/2024 11:16 AM CDT Abdominal bloating ZIO PATCH MAIL OUT Routine 10/09/2024 5: 49 AM CDT Palpitations INFLUENZA A/B ANTIGEN STAT 10/04/2024 10:31 AM CDT Throat pain COVID-19 VIRUS (CORONAVIRUS) BY PCR Routine 10/04/2024 10:31 AM CDT Throat pain GROUP A STREPTOCOCCUS PCR THROAT SWAB Routine 10/04/2024 10:08 AM CDT Throat pain STREPTOCOCCUS A RAPID SCREEN W REFELX TO PCR Routine 10/04/2024 10:08 AM CDT Throat pain WET PREPARATION Routine 09/20/2024 1:42 PM CDT Vaginal discharge CHLAMYDIA TRACHOMATIS/NEISSERIA GONORRHOEAE BY PCR Routine 09/20/2024 1:42 PM CDT Vaginal discharge UA MICROSCOPIC WITH REFLEX TO CULTURE Routine 09/20/2024 1:42 PM CDT Vaginal discharge UA MACROSCOPIC WITH REFLEX TO MICRO AND CULTURE Routine 09/20/2024 1:42 PM CDT Vaginal discharge TREPONEMA ABS W REFLEX TO RPR AND TITER Routine 09/20/2024 1:38 PM CDT Vaginal discharge ZIO PATCH MAIL OUT Routine 09/07/2024 10 :31 AM NEUROPSYCHIATRIC AIDE Palpitations CBC WITH PLATELETS & DIFFERENTIAL STAT 08/27/2024 9:19 PM NEUROPSYCHIATRIC AIDE CBC WITH PLATELETS AND DIFFERENTIAL STAT 08/27/2024 9:19 PM NEUROPSYCHIATRIC AIDE EXTRA RED TOP TUBE STAT 08/27/2024 9: 19 PM NEUROPSYCHIATRIC AIDE EXTRA BLUE TOP TUBE STAT 08/27/2024 9 :19 PM NEUROPSYCHIATRIC AIDE TROPONIN T, HIGH SENSITIVITY STAT 08/27/2024 9:19 PM NEUROPSYCHIATRIC AIDE BASIC METABOLIC PANEL STAT 08/27/2024 9:19 PM NEUROPSYCHIATRIC AIDE EXTRA TUBE STAT 08/27/2024 9:19 PM NEUROPSYCHIATRIC AIDE EKG 12-LEAD, TRACING ONLY STAT 08/27/2024 8:48 PM NEUROPSYCHIATRIC AIDE HEPATITIS C ANTIBODY Routine 08/03/2024 3:04 PM NEUROPSYCHIATRIC AIDE Screen for STD (sexually transmitted disease) GYNECOLOGIC CYTOLOGY Routine 09/22/2021 3:14 PM CDT Encounter for screening for cervical cancer from Last 3 Months or Most Recently Relevant to Health Maintenance Results * HIV Antigen Antibody Combo (11/20/2024 3:15 [...] LAB - BLOOD ORDERABLES Shira snyder Result [facility] [address] [facility] [address] [facility] [place] [address], [facility] [[email or web address]] * (ABNORMAL) UA Microscopic with Reflex to Culture (11/20/2024 11:45 AM CDT) Only the most recent of3 resultswithin the time period is included. Bacteria [...] 11:58 AM CDT Urine Culture not indicated us Estephania Flannery EXECUTIVE RECRUITER LAB - URINE ORDERABLES Shira snyder Result LABORATORY [facility] Clinic - [facility] [address] [facility] (no room number, 1st floor of clinic) [place] [address], [facility] [[email or web address]] * UA with Microscopic reflex to Culture - Clinic Collect (11/20/2024 11:45 AM CDT) Color Urine Yellow Colorless, Straw, Light Yellow, Yellow 11/20/2024 11:47 AM CDT [facility] Appearance Urine Clear Clear 11/21/19 11:47 AM CDT [facility] Glucose Urine Negative Negative mg/dL 11/20/2024 11:47 AM CDT [facility] Bilirubin Urine Negative Negative 11:47 AM CDT [facility] Ketones Urine Negative Negative mg/dL 11/20/2024 11:47 AM CDT [facility] Specific [place] Urine 1.015 1.003 - 1.035 11/20/2024 11:47 AM CDT [facility] Blood Urine Negative Negative 11/20/2024 11:47 AM CDT [facility] pH Urine 7.0 5.0 - 7.0 11/20/2024 11:47 AM CDT [facility] Protein Albumin Urine Negative Negative mg/dL 11/20/2024 11:47 AM CDT [facility] Urobilinogen Urine 0.2 0.2, 1.0 E.U./dL 11/20/2024 11:47 AM CDT [facility] Nitrite Urine Negative Negative 11/20/2024 11:47 AM CDT [facility] Leukocyte Esterase Urine Negative Negative 11/20/2024 11:47 AM CDT [facility] Urine URETHRAL STRUCTURE / Unknown Non-blood Collection / Unknown 11/20/2024 11:45 AM CDT 11/20/2024 11:45 AM CDT Estephania Flannery NP LAB - URINE ORDERABLES Shira l Result Performing Organization Address [facility]/ZIP Co de Phone Number LABORATORY [address] Lab (no room number, 1st floor of [facility]) [address] * (ABNORMAL) Wet prep - Clinic Collect (11/20/2024 11:45 AM CDT) Only the most recent of2 resultswithin the time period is included. Trichomonas Absent Absent REINA 11/20/2024 11:58 AM [...] Final Result Performing Organization Address [facility]/ZIP Co de Phone Number LABORATORY [address] Lab (no room number, 1st floor of [facility]) [address] * WBC and Differential (11/20/2024 11:41 AM CDT) WBC Count 5.2 4.0 - 11.0 10e3/uL 11/20/2024 11:47 AM CDT [facility] % Neutrophils 66 % 11/20/2024 11:47 AM CDT [facility] % Lymphocytes 20 % 11/20/2024 11:47 AM CDT [facility] % Monocytes 10 % 11/20/2024 11:47 AM CDT [facility] % Eosinophils 4 % 11/20/2024 11:47 AM CDT LABORATORY % Basophils 1 % 11/20/2024 11:47 [...] - 0.2 10e3/uL 11/20/2024 11:47 AM CDT LABORATORY Absolute Immature Granulocytes 0.0 <=0.4 10e3/uL 11/20/2024 11:47 AM CDT LABORATORY Blood BLOOD SPECIMEN / Unknown Venipuncture / Unknown 11/20/2024 11:41 AM CDT 11/20/2024 11:41 AM CDT Estephania Flannery NP LAB - BLOOD ORDERABLES Shira l Result LABORATORY [facility] [address] [facility] (no room number, 1st floor of clinic) [place] [address], [facility] [[email or web address]] * Treponema Abs w Reflex to RPR and Titer (11/20/2024 11:40 AM CDT) Only the most recent of2 resultswithin the time period is included. Treponema Antibody Total Nonreactive Nonreactive 11/20/2024 9:56 PM CDT SPECIALTY LABS Blood BLOOD SPECIMEN / Unknown Venipuncture / Unknown 11/20/2024 11:40 AM CDT 11/20/2024 11:40 AM CDT Estephania Flannery NP LAB - BLOOD ORDERABLES Shira l Result [facility] SPECIALTY CORE/PROT/ENDO [facility] Specialty Core/Prot/Endo [address], [address] [place] [address] SPECIALTY LABS Specialty Lab [address], [address] [place] [address] * XR Chest 2 Views (11/20/2024 11:20 AM CDT) Only the most recent of2 resultswithin the time period is included. Anatomical Region Laterality Modality Chest Computed Radiogr aphy 11/20/2024 11:2 0 AM CDT Impressions 11/20/2024 11:22 AM CDT IMPRESSION: Negative chest. Narrative 11/20/2024 11:22 AM CDT EXAM: XR CHEST 2 VIEWS LOCATION: [facility] DATE: 11/20/2024 INDICATION: Acute cough COMPARISON: 10/28/2024 Procedure Note Robert Ramos MD - 11/20/2024 EXAM: XR CHEST 2 VIEWS LOCATION: [facility] DATE: 11/20/2024 INDICATION: Acute cough COMPARISON: 10/28/2024 IMPRESSION: Negative chest. Estephania Flannery NP IMG DIAGNOSTIC IMAGING ORDSia HERRERA Final Result * Influenza A & B Antigen (11/20/2024 10:45 AM CDT) Only the most recent of2 resultswithin the time period is included. Influenza A antigen Negative Negative 11/20/2024 11:22 AM CDT [facility] Influenza B antigen Negative Negative 11/20/2024 11:22 AM CDT [facility] Swab NASAL STRUCTURE / Unknown Non-blood Collection / Unknown 11/20/2024 10:45 AM CDT 11/20/2024 10:47 AM CDT Narrative [facility] - 11/20/2024 11:22 AM CDT Test results must be correlated with clinical data. If necessary, results should be confirmed by a molecular assay or viral culture. Amaris Pascal PA-C LAB - MICRO GENERAL ORD ERABLES Final Result LABORATORY [facility] [address] [facility] Lab (no room number, 1st floor of clinic) [place] [address], [facility] [[email or web address] * Troponin T, High Sensitivity (10/28/2024 6:23 PM CDT) Only the most recent of3 resultswithin the time period is included. Troponin T, High Sensitivity <6 <=14 ng/L 10/28/2024 6:49 PM CDT LABORATORY Comment: Either a High Sensitivity [...] UPPER LIMB / Unknown Venipuncture / Unknown 10/28/2024 6:23 PM CDT 10/28/2024 6:28 PM CDT Jeffrey Fofana MD LAB - BLOOD ORDERABLES Fin al Result LABORATORY [facility] Acute Care Lab [address] Lab (1st floor, no room number) [place] [address], [facility] [[email or web address]] * EKG 12 lead (10/28/2024 5:27 PM CDT) Only the most recent of3 resultswithin the time period is included. Systolic Blood Pressure mmHg RADIOLOGY RESULTS Diastolic Blood Pressure mmHg RADIOLOGY RESULTS Ventricular Rate 65 BPM RAD IOLOGY RESULTS Atrial Rate 65 BPM RADIOLOG Y RESULTS PA Interval 150 ms RADIOLOG Y RESULTS QRS Duration 86 ms RADIOLO GY RESULTS QT 398 ms RADIOLOGY RESULTS QTc 413 ms RADIOLOGY RESULTS P [place] 43 degrees RADIOLOGY RESULTS R AXIS 61 degrees RADIOLOGY RESULTS T [place] 45 degrees RADIOLOGY RESULTS Interpretation ECG Sinus rhythm Normal ECG When compared with ECG of 28-Oct-2024 15:14, (unconfirmed ) Vent. rate has decreased by 32 bpm Confirmed by - EMERGENCY ROOM, PHYSICIAN ([id number]), book editor KEYLA MERIDA ([id number]) on 10/29/2024 6:55:27 AM RADIOLOGY RESULTS 10/28/2024 5:27 PM CDT 10/29/2024 6:55 AM CDT Jeffrey Fofana MD ECG ORDERABLES Edited Res ult - Final RADIOLOGY RESULTS * HCG QUALitative (blood) (10/28/2024 4:20 PM CDT) hCG Serum Qualitative Negative Negative REINA 10/28/2024 5:14 PM CDT [facility] Comment:This test is for scr eening purposes. Results should be interpreted along with the clinical picture. Confirmation testing is available if warranted by ordering [id number], HCG Quantitative . Blood STRUCTURE OF RIGHT UPPER LIMB / Unknown Venipuncture / Unknown 10/28/2024 4:20 PM CDT 10/28/2024 4:31 PM CDT Jeffrey Fofana MD LAB - BLOOD ORDERABLES Fin al Result RH LABORATORY [facility] Lab [address] Lab (1st floor, no room number) [place] [address], [facility] [[email or web address]] * D dimer quantitative (10/28/2024 4:20 PM CDT) D-Dimer Quantitative <0.27 0.00 - 0.50 ug/mL FEU 10/28/2024 5:14 PM CDT RH LABORATORY Blood STRUCTURE OF RIGHT UPPER LIMB / Unknown Venipuncture / Unknown 10/28/2024 4:20 PM CDT 10/28/2024 4:31 PM CDT Narrative [facility] LABORATORY - 10/28/2024 5:14 PM CDT This D-dimer assay is intended for use in conjunction with a clinical pretest probability assessment model to exclude pulmonary embolism (PE) and deep venous thrombosis (DVT) in outpatients suspected of PE or DVT. The cut-off value is 0.50 ug/mL FEU. us Jeffrey Fofana MD LAB - BLOOD ORDERABLES Fin al Result RH LABORATORY [facility] [address] Lab (1st floor, no room number) [place] [address], [facility] [[email or web address]] * (ABNORMAL) CBC with platelets and differential (10/28/2024 4:19 PM CDT) Only the most recent of2 resultswithin the time period is included. WBC Count 6.6 4.0 - 11.0 10e3/uL 10/28/2024 4:36 PM CDT [facility] LABORATORY RBC Count 4.79 3.80 - 5.20 10e6/uL 10/28/2024 4:36 PM CDT RH LABORATORY Hemoglobin 12.2 11.7 - 15.7 g/dL 10/28/2024 4:36 PM CDT RH LABORATORY Hematocrit 37.5 35.0 - 47.0 % 10/28/2024 4:36 PM CDT RH LABORATORY MCV 78 78 - 100 fL 10/28/2024 4:36 PM CDT RH LABORATORY MCH 25.5(L) 26.5 - 33.0 pg 10/28/2024 4:36 PM CDT RH LABORATORY MCHC 32.5 31.5 - 36.5 g/dL 10/28/2024 4:36 PM CDT RH LABORATORY RDW 13.2 10.0 - 15.0 % 10/28/2024 4:36 PM CDT RH LABORATORY Platelet Count 234 150 - 450 10e3/uL 10/28/2024 4:36 PM CDT [facility] LAB[facility]AT[facility] % Neutrophils 52 % 10/28/2024 4:36 PM CDT [facility] LAB[facility]AT[facility] % Lymphocytes 33 % 10/28/2024 4:36 PM CDT [facility] LAB[facility]AT[facility] % Monocytes 7 % 10/28/2024 4:36 PM CDT [facility] LAB[facility] % Eosinophils 7 % 10/28/2024 4:36 PM CDT [facility] LAB[facility] % Basophils 1 % 10/28/2024 4:36 PM CDT [facility] LAB[facility] % Immature Granulocytes 0 % 10/28/2024 4:36 PM CDT RH LABORATORY NRBCs per 100 WBC 0 <1 /100 025 4:36 PM CDT RH LABORATORY Absolute Neutrophils 3.4 1.6 - 8.3 10e3/uL 10/28/2024 4:36 PM CDT RH LABORATORY Absolute Lymphocytes 2.1 0.8 - 5.3 10e3/uL 10/28/2024 4:36 PM CDT RH LABORATORY Absolute Monocytes 0.5 0.0 - 1.3 10e3/uL 10/28/2024 4:36 PM CDT RH LABORATORY Absolute Eosinophils 0.5 0.0 - 0.7 10e3/uL 10/28/2024 4:36 PM CDT RH LABORATORY Absolute Basophils 0.0 0.0 - 0.2 10e3/uL 10/28/2024 4:36 PM CDT [facility] LAB[facility]AT[facility] Absolute Immature Granulocytes 0.0 <=0.4 10e3/uL 10/28/2024 4:36 PM CDT RH LABORATORY Absolute NRBCs 0.0 10e3/uL 10/28/2024 4:36 PM CDT RH LABORATORY Blood STRUCTURE OF RIGHT UPPER LIMB / Unknown Venipuncture / Unknown 10/28/2024 4:19 PM CDT 10/28/2024 4:32 PM CDT us Jeffrey Fofana MD LAB - BLOOD ORDERABLES Fin al Result LABORATORY [facility] Lab [address] Lab (1st floor, no room number) [place] [address], [facility] [[email or web address]] * Basic metabolic panel (BMP) (10/28/2024 4:19 PM CDT) Only the most recent of2 resultswithin the time period is included. Sodium 137 135 - 145 mmol/L 10/28/2024 5:02 PM CDT RH LABORATORY Potassium 3.7 3.4 - 5.3 mmol/L 10/28/2024 5:02 PM CDT LABORATORY Chloride 102 98 - 107 mmol/L 10/28/2024 5:02 PM CDT LABORATORY Carbon Dioxide (CO2) 23 22 - 29 mmol/L 10/28/2024 5:02 PM CDT LABORATORY Anion Gap 12 7 - 15 mmol/L 10/28/2024 5:02 PM CDT LABORATORY Urea Nitrogen 17.3 6.0 - 20.0 mg/dL 10/28/2024 5:02 PM CDT LABORATORY Creatinine 0.78 0.51 - 0.95 mg/dL 10/28/2024 5:02 PM CDT LABORATORY GFR Estimate >90 >60 mL/min/1.7 3m2 10/28/2024 5:02 PM CDT LABORATORY Comment:eGFR calculated us2020 CKD-EPI equation. Calcium 9.2 8.8 - 10.4 mg/dL 10/28/2024 5:02 PM CDT LABORATORY Glucose 86 70 - 99 mg/dL 10/28/2024 5:02 PM CDT LABORATORY Blood STRUCTURE OF RIGHT UPPER LIMB / Unknown Venipuncture / Unknown 10/28/2024 4:19 PM CDT 10/28/2024 4:32 PM CDT Jeffrey Fofana MD LAB - BLOOD ORDERABLES Fin al Result LABORATORY [facility] [address] [facility] Lab (1st floor, no room number) [place] [address], [facility] [[email or web address]] * (ABNORMAL) UA Macroscopic with reflex to Microscopic and Culture - Lab Collect (10/24/2024 11:16 AMCDT) Only the most recent of2 resultswithin the time period is included. Color Urine Yellow Colorless, Straw, Light Yellow, Yellow 10/24/2024 11:21 AM CDT CR LABORATORY Appearance Urine Slightly Cloudy(A) Clear 10/24/2024 11:21 AM CDT CR LABORATORY Glucose Urine Negative Negative mg/dL 10/24/2024 11:21 AM CDT CR LABORATORY Bilirubin Urine Negative Negative 04/16/202 5 11:21 AM CDT CR LABORATORY Ketones Urine Negative Negative mg/dL 10/24/2024 11:21 AM CDT CR LABORATORY Specific [place] Urine 1.015 1.003 - 1.035 10/24/2024 11:21 AM CDT CR LABORATORY Blood Urine Negative Negative 10/24/2024 11:21 AM CDT CR LABORATORY pH Urine 6.5 5.0 - 7.0 10/24/2024 11:21 AM CDT CR LABORATORY Protein Albumin Urine Negative Negative mg/dL 10/24/2024 11:21 AM CDT CR LABORATORY Urobilinogen Urine 0.2 0.2, 1.0 E.U./dL 10/24/2024 11:21 AM CDT CR LABORATORY Nitrite Urine Negative Negative 10/24/2024 11:21 AM CDT CR LABORATORY Leukocyte Esterase Urine Negative Negative 10/24/2024 11:21 AM CDT CR LABORATORY Urine URINE SPECIMEN OBTAINED BY CLEAN CATCH PROCEDURE / Unknown Non-blood Collection / Unknown 10/24/2024 11:16 AM CDT 10/24/2024 11:16 AM CDT us Anthony Doe PA-C LAB - URINE ORDERABLES Final Result CR LABORATORY [facility] [address] [place] [address] (no room number, 1st floor of clinic) [place] [address], [facility] [[email or web address]] * ZIO PATCH MAIL OUT (10/09/2024 5:49 AM CDT) Only the most recent of2 resultswithin the time period is included. Zio Prelim Results Patient had a min [...] CARDIAC SERVICES ORDERA BLES Final Result * COVID-19 Virus (Coronavirus) by [...] using the Aptima SARS-CoV-2 Assay on the [employer] Instrument System. Additional information about this Emergency [...] COVID-19. This test was validated by the [facility] Infectious Diseases Diagnostic Laboratory. This laboratory is certified under the Clinical Laboratory Improvement Amendments of 1988 (CLIA-88) as qualified to perform high complexity laboratory testing. us Audrey Díaz PA-C LAB - MICRO GENERAL ORDERAB LES Final Result [facility] ID[facility] LABORATORY [facility] Inf. Diseases Diag. Lab [address] [facility], [address] [place] [address], [facility] [[email or web address]] * Streptococcus A Rapid Screen w/Reflex to PCR - Clinic Collect (10/04/2024 10:08 AM CDT) Group A Strep antigen Negative Negative 10/04/2024 10:24 AM CDT LABORATORY Swab STRUCTURE OF ANTERIOR PORTION OF NECK / Unknown Non-blood Collection / Unknown 10/04/2024 10:08 AM CDT 10/04/2024 10:15 AM CDT Audrey Díaz PA-C LAB - MICRO GENERAL ORDERAB LES Final Result LABORATORY [facility] [address] [place] [address] (no room number, 1st floor of clinic) [place] [address], [facility] [[email or web address]] * Group A Streptococcus PCR Throat Swab [...] Xpress Strep A test, performed on the [employer], is a rapid, qualitative [...] (PCR) to detect Streptococcus pyogenes DNA. Audrey Hermosilloct PA-C LAB - MICRO GENERAL ORDERAB LES Final Result [facility]AT[facility] Inf. Diseases Diag. Lab [address] [facility], [address] [place], [place] [address] * Chlamydia & Gonorrhea by PCR, GICH/Range - Clinic Collect (09/20/2024 1:42 PM CDT) Chlamydia Trachomatis Negative Negative 09/21/2024 11:40 AM CDT [facility] IDD LABORATORY Comment: Negative for C. trachomatis rRNA by sourcer mediated amplification. A negative result by sourcer mediated amplification does not preclude the presence of infection because results are dependent on proper and adequate collection, absence of inhibitors and sufficient rRNA to be detected. Neisseria gonorrhoeae Negative Negative 09/21/2024 11:40 AM CDT [facility] LABORAT[facility] Comment:Negative for N. gono rrhoeae rRNA by sourcer mediated amplification. A negative result by sourcer mediated amplification does not preclude the presence [...] GENERAL ORDERABLES Final Result [facility]ORAT[facility] Inf. Diseases Diag. Lab [address] [facility], Room [place] [id number] * Extra Red Top Tube (08/27/2024 9:19 PM NEUROPSYCHIATRIC AIDE) Hold Specimen JIC 08/27/2024 10:31 PM NEUROPSYCHIATRIC AIDE LABORATORY Blood STRUCTURE OF RIGHT UPPER LIMB / Unknown Venipuncture / Unknown 08/27/2024 9:19 PM NEUROPSYCHIATRIC AIDE 08/27/2024 9:23 PM NEUROPSYCHIATRIC AIDE us Fady Vega MD LAB - BLOOD ORDERABLES Fi nal Result RH LABORATORY [facility] Lab [address] Lab (1st floor, no room number) [place] [address], [facility] [[email or web address]] * Extra Blue Top Tube (08/27/2024 9:19 PM NEUROPSYCHIATRIC AIDE) Pathologist [facility] Hold Specimen JIC 08/27/2024 10:31 PM NEUROPSYCHIATRIC AIDE LABORATORY Blood STRUCTURE OF RIGHT UPPER LIMB / Unknown Venipuncture / Unknown 08/27/2024 9:19 PM NEUROPSYCHIATRIC AIDE 08/27/2024 9:23 PM NEUROPSYCHIATRIC AIDE Fady Vega MD LAB - BLOOD ORDERABLES Fi nal Result LABORATORY [facility] Lab [address] [employer] Lab (1st floor, no room number) [place] [address] * Hepatitis C antibody (08/03/2024 3:04 PM NEUROPSYCHIATRIC AIDE) [facility] Hepatitis C Antibody Nonreactive Nonreactive 08/03/2024 8:55 PM NEUROPSYCHIATRIC AIDE LABORATORY Comment:A nonreactive screen ing test result [...] Unknown Venipuncture / Unknown 08/03/2024 3:04 PM NEUROPSYCHIATRIC AIDE 08/03/2024 3:05 PM NEUROPSYCHIATRIC AIDE Jaron Hager PA-C LAB - BLOOD ORDERABLES Final Result LABORATORY [facility] [address] [facility] [address] [facility], [address] [place] [address], [facility] [[email or web address]] * Pap screen reflex to HPV if [...] component of this testing was completed at [facility] Laboratory 09/25/2021 10:27 AM CDT SPECIALTY LABS Brushing CERVIX UTERI STRUCTURE / Unknown 09/22/2021 3:14 PM CDT 09/22/2021 3:48 PM CDT Marija Edgar APRN CREDIT RATING CHECKER LAB - [place] AP Final Re sult SPECIALTY LAB[facility] Specialty Lab [address] [facility], [address] [place] [address], [facility] [[email or web address]] [phone] from Last 3 Months or Most Recently Relevant to Health Maintenance Additional Health Concerns Infection Onset Date Last Indicated Rule Out COVID-19 11/20/2024 11/20/2024 Insurance [facility] [address] [address] [facility] [address] [address] [facility] * Guarantor: Kim Johnson Account Type Relation to Patient Date of Phone Billing Address Medication Therapy Self [address] [place] [phone] [facility] * Guarantor: Kim Johnson Account Type Relation to Patient Date of Phone Billing Address Medication Therapy Self [address] [place] [phone] [facility] Address: [address] [address] [facility] Advance Directives For more information, please contact: [phone] * Full Code (Latest Code Status on File) Date Activated Date Inactivated Comments 01/14/2021 7:36 AM 01/15/2021 6:05 PM All basic and advanced life-sustaining interventions are performed as appropriate Question Answer Comments Code status determined by: Discussion with patie nt/ legal decision maker Care Teams Memorial Adviser Relationship Specialty Start Date End Date Esha Grimm PA-C [address] [place] [address] PCP - General Family Medicine 05/04/23 Diana Desir, [facility] [address] [place] [address] Pharmacist Pharmacist 04/17/21 Rain Galaviz PA-C [address] [place] [address] [address] [place] [address] Physician Professor Of Latin American Studies Dermatology 04/28/21 Tavia Wyatt MD [address] [place] [address] [address] [place] [address] Dermatology 07/14/21 Erica Farrell APRN CREDIT RATING CHECKER [address] [place] [address] Nurse Practitioner Cardiovascular Disease 09/09/21 Rich Barrett MD [address] [place] [address] Physician Ophthalmology 01/21/22 Neil Kent MD 500 [place] [address] Dermatology 02/24/22 Diana eDsir [facility] [address] [place] [address] Assigned MTM Pharmacist 04/07/22 Livan Sharif MD [address] [place], [place] 8940[address] Cardiovascular Disease 05/14/22 Catherine Cm MD [address] [place], [place] 87[address] Cardiovascular Disease 07/21/22 Valery Veronica PA-C [address] [place] [address] Physician Professor Of Latin American Studies Dermatology 07/21/22 Brea Quinn APRN CREDIT RATING CHECKER [address] [place] [address] Nurse Practitioner Dermatology 09/21/22 Radha Lomeli APRN CREDIT RATING CHECKER [address] [place], [place] 95[address] Assigned Heart and Vascular Provider 05/28/23 Jelena David OD [address] [facility] [place] [address] Ophthalmology 06/15/23 Esha Grimm PA-C [address] [place] [phone] Assigned PCP 07/16/23 Valery Veronica PA-C [address] [place] [address] Physician Professor Of Latin American Studies Dermatology 09/19/23 Rey Tay MD [address] [place] [address] [phone] MD Gastroenterology 09/20/23 Rocky Zepeda DO [address] [place] [address] [phone] Physician Gastroenterology 09/20/23 Philip Dumont MD [address] [place] [address] 824405 Physician Ophthalmology 09/22/23 Meredith Carrera PA-C [address] [place] [address] [phone] Assigned Gastroenterology Provider 11/01/23 Neil Kent MD [address] [address] Dermatology 11/02/23 [place] [address] [address] [facility] [place], [place] [address] Neurological Surgery 12/26/23 Audrey Waite PA-C [address] [place] [address] Physician Professor Of Latin American Studies Dermatology 02/28/24 Valery Veronica PA-C [id number] [place] [address] Physician Professor Of Latin American Studies Dermatology 04/10/24 Herminia Hatch MD [address] [place] [address] Assigned Rheumatology Provider 07/02/24 Jelena David OD [address] [place] [address] [place] [address] Ophthalmology 08/30/24 [place] [address] [place] [address] Assigned Neuroscience Provider 09/30/24 Maru Man PA-C [address] [place] [address] Physician Professor Of Latin American Studies Dermatology 10/03/24 Maru Man PA-C [address] [place] [address] Physician Professor Of Latin American Studies Dermatology 10/22/24 Jelena David OD [address] [place] [address] [place] [address] Assigned Surgical Provider 10/31/24
--- OUTSIDE RECORDS SUMMARY | 2024-11-21 04:12 | XMS_ITS | Encounter Summary ---
Author Organization [facility] Address [address] [place] [address] Care Team Providers Care Plant Sciences Professor Name Role Phone Diana Desir Stanislav [facility] Unavailable [phone] Rain Galaviz PA-C Unavailable Tavia Wyatt MD Unavailable Erica Farrell APRN LINING STUFFER Unavailable Rich Barrett MD Unavailable [phone] Neil [place] MD Unavailable ThangKendrickDiana Stanislav [facility] Unavailable [phone] Livan Sharif MD Unavailable Catherine Cm MD Unavailable + Valery Veronica-C Unavailable Brea Quinn CHIEF PETROLEUM ENGINEER LINING STUFFER Unavailable Esha Grimm PA-C Primary Care Provider Radha Lomeli APRN LINING STUFFER Unavailable Jelena David OD Unavailable Esha Grimm PA-C Unavailable [phone] Valery Veronica PA-C Unavailable Rey Tay MD Unavailable Duane Rockyanne [facility] Unavailable Philip Dumont MD Unavailable [phone] Meredith Carrera PA-C Unavailable [phone] Neil [place] MD Unavailable Juan Pablo Emmanuel MD Unavailable [phone] Audrey Waite PA-C Unavailable [phone] Valery Veronica-C Unavailable [phone] Herminia Hatch MD Unavailable Jelena David OD Unavailable Juan Pablo Emmanuel MD Unavailable [phone] Maru ManC Unavailable [phone] Encounter Details Date Type Department Care Team (Latest Contact Info) Description 10/21/2024 Travel Social History Tobacco Use Types Packs/Day [...] Answer Date Recorded PHQ-2 Score 1 02/07/2024 [facility] [...] exercise at this level? 20 min 05/07/2024 Jessie Depression Scale Answer Date Recorded Jessie Depression Score 5 01/14/2021 Last EPDS Self [...] CDT Legal Sex Female 4:13 AM MARKET SPECIALIST Gender Identity Female 03/02/2021 5:45 PM CDT Sexual Orientation Straight 02/28/2020 12 :51 AM CDT documented as of this encounter Plan of Treatment Upcoming Encounters Date Type Department Care Team (Late st Contact Info) Description 11/21/2024 7:00 AM CDT Office Visit [facility] [address] [phone] Maru Man PA-C [address] 8446[address] 12/20/2024 2:30 PM CDT Office Visit [facility] [id number] [place] [phone] Esha Grimm PA-C [id number] [place] [phone] 04/16/2025 11:00 AM CDT Virtual Visit [facility] Gastroenterology [address] [place] [phone] Meredith Carrera PA-C [address] [place] [address] documented as of this encounter Visit Diagnoses Not on filedocumented in this encounter Additional Health Concerns Assessment Noted Time PHQ-9 Depression Total Score: 3 02/07/20 24 9:33 AM CDT documented as of this encounter Care Teams Plant Sciences Professor Relationship Specialty Start Date End Date Esha Grimm PA-C [address] [place] [address] PCP - General Family Medicine 05/04/23 [facility] [address] [place] [address] Pharmacist Pharmacist 04/17/21 Rain Galaviz PA-C [address] [place] [address] [address] [place] [address] Physician Crawler Dragline Operator Dermatology 04/28/21 Tavia Wyatt MD [address] [place] [address] [address] [place] [address] Dermatology 07/14/21 Erica Farrell APRN LINING STUFFER [address] [place] [address] Nurse Practitioner Cardiovascular Disease 09/09/21 Rich Barrett MD [address] [place] [address] Physician Ophthalmology 01/21/22 Neil Kent MD 500 [place] [address] Dermatology 02/24/22 Diana Desir, [facility] [address] [place] [address] Assigned MTM Pharmacist 04/07/22 Livan Sharif MD [address] [place] [address] Cardiovascular Disease 05/14/22 Catherine Cm MD [address] [place], [place] 4587[address] Cardiovascular Disease 07/21/22 Valery Veronica, PA-C [address] [place] [address] Physician Crawler Dragline Operator Dermatology 07/21/22 Brea Quinn APRN LINING STUFFER [address] [place] [address] Nurse Practitioner Dermatology 09/21/22 Radha Lomeli APRN LINING STUFFER [address] [place], [place] [address] Assigned Heart and Vascular Provider 05/28/23 Jelena David OD [address] [facility] [place] [address] Ophthalmology 06/15/23 Esha Grimm PAUcheC [address] [place] [phone] Assigned PCP 07/16/23 Valery Veronica PA-C [address] [place], [place] [address] Physician Crawler Dragline Operator Dermatology 09/19/23 Rey Tay MD [address] [place] [address] MD Gastroenterology 09/20/23 Rocky Zepeda DO [address] [place] [address] Physician Gastroenterology 09/20/23 Philip Dumont MD [address] [place] [address] 427235 Physician Ophthalmology 09/22/23 Meredith Carrera PA-C [address] [place] [address] [phone] Assigned Gastroenterology Provider 11/01/23 Neil Kent MD [address] [place] [address] Dermatology 11/02/23 [place] [address] [place] [address] Neurological Surgery 12/26/23 Audrey Waite PA-C [address] [place] [address] Physician Crawler Dragline Operator Dermatology 02/28/24 Valery Veronica PA-C [address] [place] [address] Physician Crawler Dragline Operator Dermatology 04/10/24 Herminia Hatch MD [facility]5 [place] [address] Assigned Rheumatology Provider 07/02/24 Jelena David OD [facility] [place] [address] Ophthalmology 08/30/24 [place] [address] [place] [address] Assigned Neuroscience Provider 09/30/24 Maru Man PA-C [address] [place] [address] Physician Crawler Dragline Operator Dermatology 10/03/24 documented as of this encounter
--- OUTSIDE RECORDS SUMMARY | 2024-11-21 04:12 | XMS_ITS | Encounter Summary ---
Author Organization [facility] Address [address] [place] [address] Care Team Providers Care High School Sports Coach Name Role Phone Diana Desir Stanislav [facility] Unavailable [phone] Rain Galaviz PA-C Unavailable Tavia Wyatt MD Unavailable Erica Farrell APRN BOAT DRIVER Unavailable Rich Barrett MD Unavailable [phone] Neil Kent MD Unavailable ThangKendrcikDiana Stanislav [facility] Unavailable [phone] Livan Sharif MD Unavailable Catherine Cm MD Unavailable + Valery Veronica-C Unavailable Brea Quinn RAWHIDE TRIMMER BOAT DRIVER Unavailable Esha Grimm PA-C Primary Care Provider Radha Lomeli APRN BOAT DRIVER Unavailable Jelena David OD Unavailable Esha Grimm PA-C Unavailable [phone] Valery Veronica PA-C Unavailable Rey Tay MD Unavailable DuaneRocky Unavailable Philip Dumont MD Unavailable [phone] PinoMeredith paez PA-C Unavailable [phone] Neil Kent MD Unavailable Juan Pablo Emmanuel MD Unavailable [phone] Audrey Waite PA-C Unavailable Valery Veronica PA-C Unavailable Herminia Hatch MD Unavailable Jelena David OD Unavailable Juan Pablo Emmanuel MD Unavailable Maru ManC Unavailable Maru Man PA-C Unavailable Reason for Referral * CV Testing (Routine) - Pending Review Specialty Diagnoses / Procedures Referred By Qian mayers Referred To Contact Diagnoses SVT (supraventricular tachycardia) Procedures ZIO PATCH MAIL OUT Anthony Doe PA-C [address] [place] [address] Phone: tel: fax: Referral ID Status Reason Start Date Expiration Date V isits Requested Visits Authorized [id number] Pending Review 10/24/2024 10/24/2025 1 1 Reason for Visit * Reason Comments Pharyngitis Encounter Details Date Type Department Care Team (Late st Contact Info) Description 10/24/2024 11:00 AM CDT Office Visit [facility] [address] [place] [phone] Anthony Doe PA-C [address] [place] [address] Sore throat (Primary Dx); Abdominal bloating; SVT (supraventricular tachycardia) Social History Tobacco Use [...] Answer Date Recorded PHQ-2 Score 1 10/24/2024 [facility] [place] of Occupat ional Health - Occupational Stress [...] exercise at this level? 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 Gender Identity Female 03/02/2021 5:45 PM CDT Sexual Orientation Straight 02/28/2020 12 :51 AM CDT documented as of this encounter Last Filed Vital Signs Vital Sign Reading Time Taken Comments Blood Pressure 100/62 10/24/2024 10:47 AM CDT Pulse 65 10/24/2024 10:47 AM CDT Temperature 36.4 C (97.6 F) 10/24/2024 10:47 AM CDT Respiratory Rate 20 10/24/2024 10:47 AM CDT Oxygen Saturation 100% 10/24/2024 10:47 AM CDT Inhaled Oxygen Concentration - - Weight 94.3 kg (208 lb) 10/24/2024 10:47 AM CDT Height 167.6 cm (5' 6) 10/24/2024 10:47 AM CDT Body Mass Index 33.57 10/24/2024 10:47 AM CDT documented in this encounter Progress Notes * Anthony Doe PA-C - 10/24/2024 11:00 AM CDT Assessment & Plan Sore throat Normal exam. If not improving in the next couple weeks, can refer to ENT. Abdominal bloating Patient requested a recheck of her urine. Ordered today. Urine is normal. - UA Macroscopic with reflex to Microscopic and Culture - Lab Collect; Future - UA Macroscopic with reflex to Microscopic and Culture - Lab Collect - UA Microscopic with Reflex to Culture SVT (supraventricular tachycardia) Patient requested a new order for Zio patch. States cardiology ordered one but she developed a blistery rash and removed it early. It didn't catch what she was hoping to and she would like it reordered. Recommended that she follow-up with cardiology but she wants it ordered here. Did tell her that if any abnormal results, she would need to follow-up with cardiology. - ZIO PATCH MAIL OUT; Future The longitudinal plan of care for the diagnosis(es)/condition(s) as documented were addressed during this visit. Due to the added complexity in care, I will continue to support Kim in the subsequent management and with ongoing continuity of care. Subjective Kim is a 24 year old, presenting for the following health issues: Pharyngitis 10/24/2024 10:46 AM Additional Questions Roomed by Amy Ward Pharyngitis History of Present Illness Reason for visit: Sore Throat Symptom onset: 1-2 weeks ago Symptoms include: Sores in throat Symptom intensity: Moderate Symptom progression: Staying the same Had these symptoms before: Yes Has tried/received treatment for these symptoms: No What makes it worse: Swallowing What makes it better: Sometimes cold drinks help She is taking medications regularly. Sore throat off and on for about a month. Noticed a sore on the back of her tongue about a week ago. It went away but got a new one today. Review of Systems Constitutional, HEENT, cardiovascular, pulmonary, gi and gu systems are negative, except as otherwise noted. Objective BP 100/62 (BP Location: Left arm, Patient Position: Sitting, Cuff Size: Adult Large) Pulse 65 Temp 97.6 ??F (36.4 ??C) (Oral) Resp 20 Ht 1.676 m (5' 6) Wt 94.3 kg (208 lb) LMP (LMP Unknown) SpO2 100% BMI 33.57 kg/m?? Body mass index is 33.57 kg/m??. Physical Exam GENERAL: alert and no distress EYES: Eyes grossly normal to inspection, PERRL and conjunctivae and sclerae normal HENT: normal cephalic/atraumatic, nose and mouth without ulcers or lesions, oropharynx clear, and oral mucous membranes moist MS: no gross musculoskeletal defects noted, no edema SKIN: no suspicious lesions or rashes NEURO: Normal strength and tone, mentation intact and speech normal PSYCH: mentation appears normal, affect normal/bright Results for orders placed or performed in visit on 10/24/24 (from the past 24 hours) UA Macroscopic with reflex to Microscopic and Culture - Lab Collect Specimen: Urine, Clean Catch Result Value Ref Range Color Urine Yellow Colorless, Straw, Light Yellow, Yellow Appearance Urine Slightly Cloudy (A) Clear Glucose Urine Negative Negative mg/dL Bilirubin Urine Negative Negative Ketones Urine Negative Negative mg/dL Specific [place] Urine 1.015 1.003 - 1.035 Blood Urine Negative Negative pH Urine 6.5 5.0 - 7.0 Protein Albumin Urine Negative Negative mg/dL Urobilinogen Urine 0.2 0.2, 1.0 E.U./dL Nitrite Urine Negative Negative Leukocyte Esterase Urine Negative Negative UA Microscopic with Reflex to Culture Result Value Ref Range Bacteria Urine Few (A) None Seen /HPF RBC Urine 0-2 0-2 /HPF /HPF WBC Urine 0-5 0-5 /HPF /HPF Squamous Epithelials Urine Few (A) None Seen /LPF Narrative Urine Culture not indicated *Note: Due to a large number of results and/or encounters for the requested time period, some results have not been displayed. A complete set of results can be found in Results Review. Signed Electronically by: Anthony Doe PA-C documented in this encounter Plan of Treatment Upcoming Encounters Date Type Department Care Team (Late st Contact Info) Description 11/21/2024 7:00 AM CDT Office Visit [facility] [address] [phone] Mrau Man PA-C [address] [id number] 12/20/2024 2:30 PM CDT Office Visit [facility] [address] [place] [phone] sEha Grimm PA-C [id number] [place] [phone] 04/16/2025 11:00 AM CDT Virtual Visit [facility] [address] 4th [place] [phone] Merediht Carrera PA-C [address] [place] [phone] documented as of this encounter Procedures Procedure Name Priority Date/Time Associated Diagnosis Comments UA MICROSCOPIC WITH REFLEX TO CULTURE Routine 10/24/2024 11:16 AM CDT Abdominal bloating UA MACROSCOPIC WITH REFLEX TO MICRO AND CULTURE Routine 10/24/2024 11:16 AM CDT Abdominal bloating documented in this encounter Results * (ABNORMAL) UA Microscopic with Reflex to Culture (10/24/2024 11:16 AM CDT) Bacteria Urine Few(A) None Seen /HPF REINA 10/24/2024 11:23 AM CDT [facility] RBC Urine 0-2 0-2 /HPF /HPF REINA 10/24/2024 11:23 AM CDT [facility] WBC Urine 0-5 0-5 /HPF /HPF REINA 10/24/2024 11:23 AM CDT [facility] Squamous Epithelials Urine Few(A) None Seen /LPF REINA 10/24/2024 11:23 AM CDT [facility] Urine URINE SPECIMEN OBTAINED BY CLEAN CATCH PROCEDURE / Unknown Non-blood Collection / Unknown 10/24/2024 11:16 AM CDT 10/24/2024 11:16 AM CDT Narrative [facility] - 10/24/2024 11:23 AM CDT Urine Culture not indicated Anthony Doe PA-C LAB - URINE ORDERABLES Final Result [facility] [place] [facility] [address] [facility] (no room number, 1st floor of clinic) [place] [address], [facility] * (ABNORMAL) UA Macroscopic with reflex to Microscopic and Culture - Lab Collect (10/24/2024 11:16 AMCDT) Color Urine Yellow Colorless, Straw, Light Yellow, Yellow 10/24/2024 11:21 AM CDT [facility] Appearance Urine Slightly Cloudy(A) Clear 10/24/2024 11:21 AM CDT [facility] Glucose Urine Negative Negative mg/dL 10/24/2024 11:21 AM CDT [facility] Bilirubin Urine Negative Negative 11:21 AM CDT [facility] Ketones Urine Negative Negative mg/dL 10/24/2024 11:21 AM CDT [facility] Specific [place] Urine 1.015 1.003 - 1.035 10/24/2024 11:21 [...] 11:16 AM CDT 10/24/2024 11:16 AM CDT Anthony Doe PA-C LAB - URINE ORDERABLES Final Result [facility] [place] [facility] [address] [facility] (no room number, 1st floor of clinic) [place] [address], [facility] documented in this encounter Visit Diagnoses Diagnosis Sore throat- Primary Acute pharyngitis Abdominal bloating Flatulence, eructation, and gas pain SVT (supraventricular tachycardia) Other specified cardiac dysrhythmias documented in this encounter Additional Health Concerns Assessment Noted Time PHQ-9 Depression Total Score: 5 10/25/19 25 10:38 AM CDT documented as of this encounter Care Teams High School Sports Coach Relationship Specialty Start Date End Date Esha Grimm PA-C [address] [place] [address] PCP - General Family Medicine 05/04/23 Diana Desir [facility] [address] [place] [address] Pharmacist Pharmacist 04/17/21 Rain Galaviz PA-C [address] [place] [address] [place] [address] Physician X Ray Tech Dermatology 04/28/21 Tavia Wyatt MD [address] [place] [address] [facility] [place] [id number] Dermatology 07/14/21 Erica Farrell APRN BOAT DRIVER [address] [place] [address] Nurse Practitioner Cardiovascular Disease 09/09/21 Rich Barrett MD [address] [place] 597145 Physician Ophthalmology 01/21/22 Neil Kent MD [address] [place] [address] 565185 Dermatology 02/24/22 [facility] [address] [place], [place] 342196 Assigned [place] Pharmacist 04/07/22 Livan Sharif MD [address] [facility] [place] [address] Cardiovascular Disease 05/14/22 Catherine Cm MD [address] [facility] [place] 7[address]995 Cardiovascular Disease 07/21/22 Valery Veronica, PA-C [address] [place], [place] 345565 Physician X Ray Tech Dermatology 07/21/22 Brea Quinn APRN BOAT DRIVER [address] [place] [address] Nurse Practitioner Dermatology 09/21/22 Radha Lomeli APRN BOAT DRIVER [address] [facility] [address] [place] [address] Assigned Heart and Vascular Provider 05/28/23 Jelena David OD [address] [facility] [place] [address] MD Ophthalmology 06/15/23 Esha Grimm PA-C [address] [place] [phone] Assigned PCP 07/16/23 Valery Veronica PA-C [address] [place] [address] 180505 Physician X Ray Tech Dermatology 09/19/23 Rey Tay MD [address] [place] [address] 569175 Gastroenterology 09/20/23 Rocky Zepeda DO [address] [place] [address] Physician Gastroenterology 09/20/23 Philip Dumont MD [address] [place] [address] 220025 Physician Ophthalmology 09/22/23 Meredith Carrera PA-C [address] [place] [address] Assigned Gastroenterology Provider 11/01/23 Neil Kent MD [address] [place] [address] Dermatology 11/02/23 [place] [address] [place] [address] Neurological Surgery 12/26/23 Audrey Waite PA-C [address] [place] [address] Physician X Ray Tech Dermatology 02/28/24 Valery Veronica PA-C [id number] [place] [address] Physician X Ray Tech Dermatology 04/10/24 Herminia Hatch MD [address] [place] [address] [id number] Assigned Rheumatology Provider 07/02/24 Jelena David OD [address] [place] [address] [place] [address] Ophthalmology 08/30/24 [place] [address] [place] [address] Assigned Neuroscience Provider 09/30/24 Maru Man PA-C [address] [place] [address] Physician X Ray Tech Dermatology 10/03/24 Maru Man PA-C [address] [address] Physician X Ray Tech Dermatology 10/22/24 documented as of this encounter
--- OUTSIDE RECORDS SUMMARY | 2024-11-21 04:12 | XMS_ITS | Encounter Summary ---
Author Organization [facility] Address [address] [place] [address] Care Team Providers Care Speech Pathology Supervisor Name Role Phone Lita Oseguera Unavailable Unavailable Marija Edgar APRN BUSINESS ADVISOR Primary Care Provider + Chanelle Mccann APRN CNM Unavailab le Kyara De La Fuente RN Unavailable [phone] Marija Edgar APRN BUSINESS ADVISOR Unavailable Mynor Broussard MD Unavailable [phone] Keisha Dotson MD Unavailable Galo Burrell MD Unavailable Unavailable Cristina Wood Unavailable Diana Desir [facility] Unavailable Rain Galaviz PA-C Unavailable Summer Lara MD Unavailable [phone] Summer Lara MD Unavailable [phone] Summer Lara MD Unavailable [phone] Tavia Wyatt MD Unavailable [phone] Johnny Murillo MD Unavailable Erica Farrell APRN BUSINESS ADVISOR Unavailable VikasTeresita [facility] Unavailable Tavia Wyatt MD Unavailable Diana Desir [facility] Unavailable Rich Barrett MD Unavailable [phone] Neil Kent MD Unavailable Roney Story DP Unavailable Erica Farrell APRN BUSINESS ADVISOR Unavailable Diana Desir [facility] Unavailable Jelena David Unavailable Galo Burrell MD Unavailable Unavailable Livan Sharif MD Unavailable Livan Sharif MD Unavailable Catherine Cm MD Unavailable + Valery Veronica-C Unavailable [phone] Catherine Cm MD Unavailable + Johnny Murillo MD Unavailable [phone] Brea Quinn SEE SUPERVISOR BUSINESS ADVISOR Unavailable [phone] Brea Quinn SEE SUPERVISOR BUSINESS ADVISOR Unavailable [phone] Jose Francisco Johnson MD Unavailable Livan Sharif MD Unavailable Catherine Cm MD Unavailable + Sydnie Martinez RN Unavailable Unavailable Alfonso Renteria MD Unavailable Esha Grimm PA-C Primary Care Provider Cheng Todd PA-C Unavailable Radha Lomeli SEE SUPERVISOR BUSINESS ADVISOR Unavailable Jelena David OD Unavailable Pao Joseph RN Unavailable Unavailable Alfa[facility]ol[facility]ina PA-C Unavailable Valery Veronica PA-C Unavailable Rey Tay MD Unavailable Rocky Zepeda DO Unavailable Philip Dumont MD Unavailable [phone] Meredith Carrera PA-C Unavailable [phone] Neil Kent MD Unavailable Juan Pablo Emmanuel MD Unavailable Audrey Waite PA-C Unavailable [phone] JeremíasValery damon PA-C Unavailable Herminia Hatch MD Unavailable Jelena David OD Unavailable Juan Pablo Emmanuel MD Unavailable [phone] Maru Man PA-C Unavailable Maru Man PA-C Unavailable Jelena David OD Unavailable Encounter Details Date Type Department Care Team (Late st Contact Info) Description 01/02/2021 My[facility] Medical Advice [address] [phone] Kierra Eller Social History Tobacco [...] Answer Date Recorded PHQ-2 Score 3 09/29/2020 [facility] of Occupat ional Health [...] PM CDT Legal Sex Female 4:13 AM QUILL WINDER Gender Identity Female 03/02/2021 5:45 PM [...] Description 11/21/2024 7:00 AM CDT Office Visit [facility] [place] [address] [phone] Maru Man PA-C [address] [address] 12/20/2024 2:30 PM CDT Office Visit [facility] [address] [place] [phone] Esha Grimm PA-C [address] [place] [address] 04/16/2025 11:00 AM CDT Virtual Visit [facility] Gastroenterology Clinic [address] [place] [phone] Meredith Carrera PA-C [address] [place] [address] documented as of this encounter Visit Diagnoses Not on filedocumented in this encounter Additional Health Concerns Infection Onset Date Last Indicated Resolved Time Rule Out COVID-19 05/11/2021 05/11/2021 05/13/2021 10:18 AM CDT Rule Out COVID-19 07/13/2021 07/13/2021 07/14/2021 3:04 PM QUILL WINDER Rule Out COVID-19 07/18/2021 07/18/2021 07/20/2021 1:56 PM QUILL WINDER COVID-19 07/18/2021 07/18/2021 08/08/2021 11:3 9 PM QUILL WINDER Rule Out COVID-19 12/18/2021 12/18/2021 12/19/2021 11:34 AM CDT Rule Out COVID-19 02/24/2022 02/24/2022 02/25/2022 1:08 PM CDT Rule Out COVID-19 04/26/2022 04/26/2022 04/26/2022 6:47 AM CDT Rule Out COVID-19 05/17/2022 05/17/2022 05/17/2022 10:20 PM QUILL WINDER Rule Out COVID-19 06/09/2022 06/09/2022 06/09/2022 9:35 AM QUILL WINDER COVID-19 06/09/2022 06/09/2022 06/30/2022 11:4 1 PM QUILL WINDER Rule Out COVID-19 11/10/2022 11/10/2022 11/11/2022 12:17 [...] as of this encounter Care Teams Speech Pathology Supervisor Relationship Specialty Start Date End Date Marija Edgar APRN BUSINESS ADVISOR PCP - General Nurse Practitioner 04/30/20 04/14/23 Esha Grimm PA-C [address] [place] [phone] PCP - General Family Medicine 05/04/23 Lita Oseguera Personal Advocate & Liaison (PAL) 02/28/20 03/27/23 Chanelle Mccann APRN CNAdam [address] [address] Assigned OBGYN Provider 05/02/2005/09 Kyara De La Fuente, RN Specialty Formula Room Worker Neurology 06/04/20 03/05/21 Marija Edgar APRN BUSINESS ADVISOR Assigned PCP 06/08/20 04/29/23 Mynor Broussard MD [address] [address] Assigned Surgical Provider 06/01/20 11/28/21 Keisha Dotson MD 909 [place] [address] Assigned Neuroscience Provider 06/04/20 04/01/23 Galo Burrell MD Assigned Heart and Vascular Provider 10/05/20 04/02/22 Cristina Wood Financial Resource Worker 02/09/21 02/09/21 Diana Desir, [facility] 30[address] [place] [address] Pharmacist Pharmacist 04/17/21 Rain Galaviz PA-C [address] [place] [address] [address] [place] [address] Physician Dismantler Dermatology 04/28/21 Summer Lara MD [address] [place] [address] Assigned OBGYN Provider 05/10/2105/23 Summer Lara MD [address] [place] [address], [place] [address] Assigned OBGYN Provider 05/31/21 2 Summer Lara MD [address] [facility] [place] [address] Assigned OBGYN Provider 05/24/2105/30 Tavia Wyatt MD [address] [place] [address] Dermatology 07/14/21 Johnny Murillo MD [address] [place] [address] Assigned Musculoskeletal Provider 08/30/21 03/17/22 Erica Farrell APRN BUSINESS ADVISOR [address] [facility] [address] [place] [address] Nurse Practitioner Cardiovascular Disease 09/09/21 Teresita Bean [facility] [address] [place], [place] [phone] Pharmacist Pharmacist 09/24/21 09/29/21 Tavia Wyatt MD [address] [place] [address] Assigned Surgical Provider 11/29/21 05/07/22 Diana Desir, [facility] [address] [place] [address] Assigned MTM Pharmacist 01/02/22 Rich Barrett MD [address] [place] [address] Physician Ophthalmology 01/21/22 Neil Kent MD 500 [place] [address] Dermatology 02/24/22 Roney Story DPM [address] [facility] [address] [place] [address] Assigned Musculoskeletal Provider 03/20/22 08/13/22 Erica Farrell APRN BUSINESS ADVISOR [address] [place] [address] Assigned Heart and Vascular Provider 04/03/22 04/16/22 [facility] [address] [place] [address] Assigned MTM Pharmacist 04/07/22 Jelena David OD [address] [facility] [place] [address] Assigned Surgical Provider 05/08/22 10/08/22 Galo Burrell MD Assigned Heart and Vascular Provider 04/17/22 06/11/22 Livan Sharif MD [address] [place] [address] Cardiovascular Disease 05/14/22 Livan Sharif MD [address] [place] 949255 Assigned Heart and Vascular Provider 06/12/22 07/23/22 Catherine Cm MD [address] [facility] S [facility] [address] [place] [address] Cardiovascular Disease 07/21/22 Valery Veronica, PA-C [address] [place] [address] 763695 Physician Dismantler Dermatology 07/21/22 Catherine Cm MD [address] [place] 3[address]000 [place] [address] Assigned Heart and Vascular Provider 07/24/22 11/05/22 Johnny Murillo MD [address] [place] [address] Assigned Musculoskeletal Provider 08/14/22 10/08/22 Brea Quinn APRN BUSINESS ADVISOR [address] [place] [address] Nurse Practitioner Dermatology 09/21/22 Brea Quinn APRN BUSINESS ADVISOR [address] [place] [address] [place] [address] Assigned Surgical Provider 10/09/22 05/01/24 [place] [address] [place] [address] [place] [address] Assigned Musculoskeletal Provider 10/09/22 05/01/24 Livan Sharif MD [address] [facility] [place] [address] Assigned Heart and Vascular Provider 11/06/22 11/12/22 Catherine Cm MD [address] [place] [address] Assigned Heart and Vascular Provider 11/13/22 05/27/23 Sydnie Martinez RN Personal Advocate & Liaison (PAL) Family Medicine 03/28/23 07/31/23 Alfonso Renteria MD [address] [facility] 200 [place] [address] Assigned Neuroscience Provider 04/02/23 09/29/24 Cheng Todd PA-C [address] [place] [address] [phone] Assigned PCP 04/30/23 07/15/23 Radha Lomeli APRN BUSINESS ADVISOR [address] [place] [address] Assigned Heart and Vascular Provider 05/28/23 Jelena David OD [address] [facility] [place] [address] Ophthalmology 06/15/23 Pao Joseph, VJ Personal Advocate & Liaison (PAL) Nurse 08/01/23 11/07/23 Esha Grimm PA-C [address] [place] [phone] Assigned PCP 07/16/23 Valery Veronica PA-C [address] [place] [address] Physician Dismantler Dermatology 09/19/23 Rey Tay MD [address] [place] [address] MD Gastroenterology 09/20/23 Rocky Zepeda DO [address] [place] [address] Physician Gastroenterology 09/20/23 Philip Dumont MD [address] [place] [address] Physician Ophthalmology 09/22/23 Meredith Carrera PA-C [address] [place] [address] Assigned Gastroenterology Provider 11/01/23 Neil Kent MD [address] [phone] Dermatology 11/02/23 [place] [address] [place], [place] 5787[address] Neurological Surgery 12/26/23 Audrey Waite PA-C [address] [place] [address] Physician Dismantler Dermatology 02/28/24 Valery Veronica PA-C [address] [place] [address] Physician Dismantler Dermatology 04/10/24 Herminia Hatch MD [facility] [place] [address] Assigned Rheumatology Provider 07/02/24 Jelena David OD [facility] [place] [address] Ophthalmology 08/30/24 [place] [address] [place] [address] Assigned Neuroscience Provider 09/30/24 Maru Man PA-C [address] [place] [place] [address] Physician Dismantler Dermatology 10/03/24 Maru Man PA-C [address] [place] [place] [address] Physician Dismantler Dermatology 10/22/24 Jelena David OD [facility] [place] [address] Assigned Surgical Provider 10/31/24 documented as of this encounter
--- OUTSIDE RECORDS SUMMARY | 2024-11-21 04:12 | XMS_ITS | Encounter Summary ---
Author Organization [facility] Address [address] [place] [address] Care Team Providers Care Clerical Assistant Name Role Phone Diana Desir Stanislav [facility] Unavailable Rain Galaviz PA-C Unavailable Tavia Wyatt MD Unavailable Erica Farrell APRN FOWL BLOOD TESTER Unavailable Rich Barrett MD Unavailable [phone] Neil Kent MD Unavailable ThangKendrickDiana Stanislav [facility] Unavailable [phone] Livan Sharif MD Unavailable Catherine Cm MD Unavailable + Valery Veronica-C Unavailable Brea Quinn SORT LINE FOWL BLOOD TESTER Unavailable Esha Grimm PA-C Primary Care Provider Radha Lomeli APRN FOWL BLOOD TESTER Unavailable Jelena David OD Unavailable Esha Grimm PA-C Unavailable [phone] Valery Veronica PA-C Unavailable [phone] Rey Tay MD Unavailable DuaneRocky Unavailable Philip Dumont MD Unavailable [phone] Meredith Carrera PA-C Unavailable Neil Kent MD Unavailable Juan Pablo Emmanuel MD Unavailable [phone] Audrey Waite PA-C Unavailable [phone] Valery Veronica PA-C Unavailable [phone] Herminia Hatch MD Unavailable Jelena David OD Unavailable Juan Pablo Emmanuel MD Unavailable Maru Man-C Unavailable [phone] Maru ManC Unavailable [phone] Reason for Visit * Reason Comments Annual Eye Exam Encounter Details Date Type Department Care Team (Late st Contact Info) Description 10/24/2024 4:00 PM CDT Office Visit [facility] [place] [address] [place] [phone] Jelena David, OD [address] [facility] [place] [phone] Hyperopia of both eyes with astigmatism (Primary Dx); Headache, unspecified headache type Social History Tobacco Use Types Packs/Day Years [...] Answer Date Recorded PHQ-2 Score 1 10/24/2024 [facility] [...] exercise at this level? 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 does not use glasses or contacts Distance Vision Acuity: Noticed gradual change in both eyes Near Vision Acuity: Not satisfied unaided Eye Comfort: good Do you use eye drops? : No Kyara Shanor - Cigar Inspector Medical, surgical and family histories reviewed and updated 10/24/2024. OBJECTIVE: See Ophthalmology exam ASSESSMENT: ICD-10-CM 1. Hyperopia of both eyes with astigmatism H52.03 H52.203 2. Headache, unspecified headache type R51.9 Poor contact lens candidate Headaches can definitely be from being uncorrected PLAN: Prescription as needed Jelena David OD documented in this encounter Plan of Treatment Upcoming Encounters Date Type Department Care Team (Late st Contact Info) Description 11/21/2024 7:00 AM CDT Office Visit [facility] [address] [phone] Maru Man PA-C [address] [address] 12/20/2024 2:30 PM CDT Office Visit [facility] [id number] [place] [phone] Esha Grimm PA-C [id number] [place] [phone] 04/16/2025 11:00 AM CDT Virtual Visit [facility] [address] [place] [phone] Meredith Carrera PA-C [address] [place] [address] documented as of this encounter Procedures Procedure Name Priority Date/Time Associated Diagnosis Comments OR REFRACTION Routine 10/24/2024 4:23 PM CDT Hyperopia of both eyes with astigmatism Headache, unspecified headache type EYE EXAM (SIMPLE-NONBILLABLE) Routine 10/24/2024 4:23 PM CDT Hyperopia of both eyes with astigmatism Headache, unspecified headache type documented in this encounter Visit Diagnoses Diagnosis Hyperopia of both eyes with astigmatism- Primary Headache, unspecified headache type documented in this encounter Additional Health Concerns Assessment Noted Time PHQ-9 Depression Total Score: 5 10/25/19 25 10:38 AM CDT documented as of this encounter Care Teams Clerical Assistant Relationship Specialty Start Date End Date Esha Grimm PA-C [address] [place] [phone] PCP - General Family Medicine 05/04/23 Diana Desir, [facility] [address] [place] [address] Pharmacist Pharmacist 04/17/21 Rain Galaviz PA-C [address] [place] [address] [address] [place] [address] Physician Antique Furniture Restorer Dermatology 04/28/21 Tavia Wyatt MD [address] [place] [address] [address] [place], [place] [phone] Dermatology 07/14/21 Erica Farrell APRN FOWL BLOOD TESTER [address] [place], [place] [address] Nurse Practitioner Cardiovascular Disease 09/09/21 Rich Barrett MD [address] [place] [phone] Physician Ophthalmology 01/21/22 Neil Kent MD [address] [place] [address] Dermatology 02/24/22 Diana Desir, [facility] [address] [place] [address] Assigned MTM Pharmacist 04/07/22 Livan Sharif MD [address] [place] [address] Cardiovascular Disease 05/14/22 Catherine Cm MD [address] [place] [id number] Cardiovascular Disease 07/21/22 Valery Veronica PA-C [address] [place] [address] [phone] Physician Antique Furniture Restorer Dermatology 07/21/22 Brea Quinn APRN FOWL BLOOD TESTER [address] [place] [address] [phone] Nurse Practitioner Dermatology 09/21/22 Radha Lomeli APRN FOWL BLOOD TESTER [address] [place] [address] [address] [place], [place] [phone] Assigned Heart and Vascular Provider 05/28/23 Jelena David OD [address] [place] [address] [place] [address] Ophthalmology 06/15/23 Esha Grimm PA-C [address] [place] [phone] Assigned PCP 07/16/23 Valery Veronica PA-C [address] [place] [address] Physician Antique Furniture Restorer Dermatology 09/19/23 Rey Tay MD [address] [place] [address] MD Gastroenterology 09/20/23 Rocky Zepeda DO [address] [place] [address] Physician Gastroenterology 09/20/23 Philip Dumont MD [address] [place] [address] Physician Ophthalmology 09/22/23 Meredith Carrera PA-C [address] [place] [address] Assigned Gastroenterology Provider 11/01/23 Neil Kent MD [address] [address] Dermatology 11/02/23 [place] [address] [place] [address] Neurological Surgery 12/26/23 Audrey Waite PA-C [address] [place] [address] Physician Antique Furniture Restorer Dermatology 02/28/24 Valery Veronica PA-C [address]292 [address] [address] Physician Antique Furniture Restorer Dermatology 04/10/24 Herminia Hatch MD [address] [place], [place] [phone] Assigned Rheumatology Provider 07/02/24 Jelena David OD [address] [facility] [place] [address] Ophthalmology 08/30/24 [place] [address] [facility] [place] [address] Assigned Neuroscience Provider 09/30/24 Maru Man PA-C [address] [place] [address] Physician Antique Furniture Restorer Dermatology 10/03/24 Maru Man PA-C [address] [place] [address] Physician Antique Furniture Restorer Dermatology 10/22/24 documented as of this encounter
--- OUTSIDE RECORDS SUMMARY | 2024-11-21 04:12 | XMS_ITS | Encounter Summary ---
Author Organization [facility] Address [address] [place] [address] Care Team Providers Care All Source Intelligence Name Role Phone Diana Desir Stanislav [facility] Unavailable [phone] Rain Galaviz PA-C Unavailable Tavia Wyatt MD Unavailable Erica Farrell APRN STATEMENT REQUEST CLERK Unavailable Rich Barrett MD Unavailable [phone] Neil Kent MD Unavailable ThangKendrickDiana Stanislav [facility] Unavailable [phone] Livan Sharif MD Unavailable Catherine Cm MD Unavailable + Valery Veronica-C Unavailable Brea Quinn ARTIFICIAL SNOW MAKING MACHINE OPERATOR STATEMENT REQUEST CLERK Unavailable Esha Grimm PA-C Primary Care Provider Radha Lomeli APRN STATEMENT REQUEST CLERK Unavailable Jelena David OD Unavailable Esha Grimm PA-C Unavailable [phone] Valery Veronica PA-C Unavailable [phone] Rey Tay MD Unavailable DuaneRocky Unavailable Philip Dumont MD Unavailable PinoMeredith paez PA-C Unavailable [phone] Neil Kent MD Unavailable Juan Pablo Emmanuel MD Unavailable [phone] Audrey Waite PA-C Unavailable Valery Veronica PA-C Unavailable Herminia Hatch MD Unavailable Jelena David OD Unavailable Juan Pablo Emmanuel MD Unavailable [phone] Maru Man-C Unavailable [phone] Maru Man PA-C Unavailable Reason for Visit * Reason Comments Chest Pain Encounter Details Date Type Department Care Team (Late st Contact Info) Description 10/28/2024 3:58 PM CDT - 10/28/2024 6:57 PM CDT Emergency [facility] Emergency Dept [address] [place] [address] Jeffrey Fofana MD [facility] [address] [place] [address] Acute chest pain Discharge Disposition: Home or [...] Answer Date Recorded PHQ-2 Score 1 10/24/2024 [facility]ational Stress Questionnaire Answer Date [...] exercise at this level? 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 Gender Identity Female 03/02/2021 5:45 PM CDT Sexual Orientation Straight 02/28/2020 12 :51 AM CDT documented as of this encounter Last Filed Vital Signs Vital Sign Reading Time Taken Comments Blood Pressure 116/73 10/28/2024 6:56 PM CDT Pulse 79 10/28/2024 6:56 PM CDT Temperature 36.4 C (97.6 F) 10/28/2024 3:23 PM CDT Respiratory Rate 18 10/28/2024 6:56 PM CDT Oxygen Saturation 100% 10/28/2024 6:56 PM CDT Inhaled Oxygen Concentration - - Weight 94.3 kg (207 lb 14.3 oz) 10/28/2024 3:23 PM CDT Height 167.6 cm (5' 6) 10/28/2024 3:23 PM CDT Body Mass Index 33.55 10/28/2024 3:23 PM CDT documented in this encounter Discharge Instructions * Discharge Instructions* Jeffrey Fofana MD - 10/28/2024 6:49 PM CDT Please continue to monitor symptoms closely. I would recommend completion of the heart monitor you have previously been instructed to use. If you develop worsening symptoms please return to the ER for reassessment. Discharge Instructions Chest Pain You have been [...] (PRILOSEC) [address] capsuleIndication s:Epigastric pain Take 1 capsule (40 mg) by mouth daily. 90 capsule 2 09/17/2024 PARoxetine (PAXIL) 40 MG tabletIndications :Anxiety Take 1 tablet (40 mg) by mouth every morning. NEED APPT FOR FURTHER REFILLS. 30 tablet 1 10/18/2024 Probiotic Product (PROBIOTIC BLEND PO) tacrolimus (PROTOPIC) [...] arms/legs until healed then stop 80 g 10/18/2024 documented as of this encounter ED Notes * Jeffrey Fofana MD - 10/28/2024 3:59 PM CDT Emergency Department Note History of Present Illness Chief Complaint Chest Pain HPI Kim Johnson is a 24 year old female with a history of SVT s/p ablation, tobacco abuse, and anxiety who presents to the ED for evaluation of chest pain. 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 She has felt shaky throughout the day today. Her blood pressure at the time of onset was 136/89 compared to her normal of 105/60. She has had chest tightness in the past butnot heaviness. Notes a history of SVT with an ablation about 3 years ago. She has been having nighttime episodes of tachycardia and palpitations for the past few weeks. She was seen by her PCP for this and a ZioPatch was ordered. She has not yet been able to apply the device. Notes a family historyof 3 IL's under the age of 40. Her father also has a history of SVT, stroke, and PFO. Denies recentanxiety or stress triggers. Notes she has been working a long day yesterday and again today, and attributes her symptoms to be related to being overworked. Movements about her back and chest do change and somewhat worsen her pain. Independent Historian None Review of External Notes I reviewed the ER visit from 08/27/24 and the family practice office visit note from 10/24/24 where she had a ZioPtach placed. Past Medical History Medical History and Problem List Eosinophilic esophagitis Anxiety Depression Tobacco abuse SVT Psoriasis Seizure Nephrolithiasis Medications Mirena Ativan Toprol Omeprazole Paxil Surgical History SVT cardiac ablation Kidney surgery Physical Exam Patient Vitals for the past 24 hrs: BP Temp Temp src Pulse Resp SpO2 Height Weight 10/28/24 1856 116/73 -- -- 79 18 100 % -- -- 10/28/24 1606 123/68 -- -- 86 -- 98 % -- -- 10/28/24 1523 134/86 97.6 ??F (36.4 ??C) Oral 90 18 98 % 1.676 m (5' 6) 94.3 kg (207 lb 14.3 oz) Physical Exam General: Well-nourished Speaking in full sentences Eyes: Conjunctiva without injection or scleral icterus ENT: Moist mucous membranes Nares patent Pinnae normal Neck: Full ROM No stiffness appreciated Resp: Lungs CTAB No crackles, wheezing or audible rubs Good air movement CV: Normal rate, regular rhythm S1 and S2 present No murmur, gallop or rub 2+ radial pulse and symmetric GI: BS present Abdomen soft without distention Non-tender to light and deep palpation No guarding or rebound tenderness Skin: Warm, dry, well perfused No rashes or open wounds on exposed skin MSK: Moves all extremities No focal deformities or swelling Some tenderness to palpation over anterior chest wall Neuro: Alert Answers questions appropriately Moves all extremities equally Gait stable Psych: Normal affect, normal mood Diagnostics Lab Results Labs Ordered and Resulted from Time of ED Arrival to Time of ED Departure CBC WITH PLATELETS AND DIFFERENTIAL - Abnormal Result Value WBC Count 6.6 RBC Count 4.79 Hemoglobin 12.2 Hematocrit 37.5 MCV 78 MCH 25.5 (*) MCHC 32.5 RDW 13.2 Platelet Count 234 % Neutrophils 52 % Lymphocytes 33 % Monocytes 7 % Eosinophils 7 % Basophils 1 % Immature Granulocytes 0 NRBCs per 100 WBC 0 Absolute Neutrophils 3.4 Absolute Lymphocytes 2.1 Absolute Monocytes 0.5 Absolute Eosinophils 0.5 Absolute Basophils 0.0 Absolute Immature Granulocytes 0.0 Absolute NRBCs 0.0 BASIC METABOLIC PANEL - Normal Sodium 137 Potassium 3.7 Chloride 102 Carbon Dioxide (CO2) 23 Anion Gap 12 Urea Nitrogen 17.3 Creatinine 0.78 GFR Estimate >90 Calcium 9.2 Glucose 86 TROPONIN T, HIGH SENSITIVITY - Normal Troponin T, High Sensitivity <6 HCG QUALITATIVE - Normal hCG Serum Qualitative Negative D DIMER QUANTITATIVE - Normal D-Dimer Quantitative <0.27 TROPONIN T, HIGH SENSITIVITY - Normal Troponin T, High Sensitivity <6 Imaging Chest XR, PA & LAT Final Result IMPRESSION: No focal airspace disease. No pleural effusion or pneumothorax. The cardiomediastinal silhouette is unremarkable. EKG ECG taken at 1514, ECG read at 1614 Normal sinus rhythm Nonspecific ST abnormality No significant change as compared to prior, dated 08/27/24. Rate 97 bpm. MS interval 142 ms. QRS duration 82 ms. QT/QTc 344/436 ms. P-R-T axes 52 56 28. EKG ECG taken at 1727, ECG read at 1730 Normal sinus rhythm No significant change as compared to prior, dated 10/28/24 at 1514. Rate 65 bpm. MS interval 150 ms. QRS duration 86 ms. QT/QTc 398/413 ms. P-R-T axes 43 61 45. Independent Interpretation CXR: No infiltrate. ED Course Medications Administered Medications - No data to display Procedures Procedures Discussion of Management None ED Course ED Course as of 10/28/24 2306 Sun Oct 28, 2024 1614 I obtained history and performed a physical exam as noted above. 1752 I rechecked and updated the patient. She is feeling improved. 1851 I rechecked and updated the patient. Additional Documentation None Medical Decision Making / Diagnosis [facility] Diagnoses: None MIPS None [facility] Kim Johnson is a 24 year old female presenting to the ER for evaluation of chest pain. VS on presentation reveal mildly elevated BP which improved on recheck, though otherwise is unremarkable. Differential diagnosis includes acute coronary syndrome, PE, pneumothorax, pneumonia, aortic dissection, musculoskeletal etiologies, atypical reflux, among others. At present, precise etiology for patient's discomfort not entirely clear. EKG on presentation demonstrates sinus rhythm, nonspecific ST-T wave changes, though no significant change compared with previous. No significant dynamic changes noted on recheck. Per initial and repeat high-sensitivity troponin did return undetectable which I feel argues against acute cardiac ischemia. Pulmonary embolism also considered though felt unlikely as patient is low risk utilizing Wells criteria and D-dimer is negative. Chest x-ray negative for pneumothorax or pneumonia. Mediastinum is unremarkable, and overall suspicion for aortic dissection is low. I do feel risks of further imaging with CT outweigh benefits at this time. There is no family history of known aortic dissection. Patient is resting comfortably on the gurney, and otherwise clinically well-appearing. She exhibits metric radial pulses. Patient does have a history of SVT, and has aoutpatient order for a Zio patch. I feel this to be reasonable to continue with and follow-up closely with primary care provider. Patient feels comfortable with outlined plan of care. I recommended rest, fluids, anti-inflammatories as needed. She is feeling improved during her ED course. She is welcome to return to the ER should any new or troubling symptoms arise such as worsening pain, shortness of breath, fevers, chills or any other concerns. Questions answered prior to discharge. Disposition The patient was discharged. Diagnosis ICD-10-CM 1. Acute chest pain R07.9 Scribe Disclosure: I, Lauren Hernandezjolene, am serving as a scribe at 4:22 PM on 10/28/2024 to document services personally performed by Jeffrey Fofana MD based on my observations and the provider's statements to me. Jeffrey Fofana MD 10/28/24 1332 * Jyoti Seaman RN - 10/28/2024 3:21 PM CDT Pt coming from 3rd floor, was working when started having heavy chest pressure about an hour ago. Hx of ablasion for SVT, 2 years ago. VSS. documented in this encounter Plan of Treatment Upcoming Encounters Date Type Department Care Team (Late st Contact Info) Description 11/21/2024 7:00 AM CDT Office Visit [address] [phone] Maru Man PA-C [address] [address] 12/20/2024 2:30 PM CDT Office Visit [address] [address] Esha Grimm PA-C [id number] [place] [phone] 04/16/2025 11:00 AM CDT Virtual Visit [facility] [address] [place] [address] Meredith Carrera PA-C [address] [place] [address] documented as of this encounter Procedures Procedure Name Priority Date/Time Associated Diagnosis Comments TROPONIN T, HIGH SENSITIVITY STAT 10/28/2024 6:23 PM CDT XR CHEST 2 VIEWS STAT 10/28/2024 5:41 PM CDT EKG 12-LEAD, TRACING ONLY STAT 10/28/2024 5:27 PM CDT HCG QUALITATIVE STAT 10/28/2024 4:20 PM CDT D DIMER QUANTITATIVE STAT 10/28/2024 4:20 PM CDT CBC WITH PLATELETS AND DIFFERENTIAL STAT 10/28/2024 4:19 PM CDT TROPONIN T, HIGH SENSITIVITY STAT 10/28/2024 4:19 PM CDT CBC WITH PLATELETS & DIFFERENTIAL STAT 10/28/2024 4:19 PM CDT BASIC METABOLIC PANEL STAT 10/28/2024 4:19 PM CDT EKG 12-LEAD, TRACING ONLY STAT 10/28/2024 3:14 PM CDT documented in this encounter Results * Troponin T, High Sensitivity (10/28/2024 6:23 PM CDT) Troponin T, High Sensitivity <6 <=14 ng/L 10/28/2024 6:49 PM CDT [facility] Comment: Either a High [...] LAB - BLOOD ORDERABLES Fin al Result [facility] Acute Care Lab [address] [facility] Lab (1st floor, no room number) [place] [address] * Chest XR, PA & LAT (10/28/2024 5:41 PM CDT) Anatomical Region Laterality Modality Chest Computed Radiogr aphy 10/28/2024 5:41 PM CDT Impressions 10/28/2024 5:44 PM CDT IMPRESSION: No focal airspace disease. No pleural effusion or pneumothorax. The cardiomediastinal silhouette is unremarkable. Narrative 10/28/2024 5:44 PM CDT EXAM: XR CHEST 2 VIEWS LOCATION: [facility] DATE: 10/28/2024 INDICATION: Chest pain. COMPARISON: 03/25/2024 Procedure Note Elver Murillo MD - 10/28/2024 EXAM: XR CHEST 2 VIEWS LOCATION: [facility] DATE: 10/28/2024 INDICATION: Chest pain. COMPARISON: 03/25/2024 IMPRESSION: No focal airspace disease. No pleural effusion or pneumothorax. The cardiomediastinal silhouette is unremarkable. Jeffrey Fofana MD IMG DIAGNOSTIC IMAGING ORD ERABLES Final Result * EKG 12 lead (10/28/2024 5:27 PM CDT) Systolic Blood Pressure mmHg RADIOLOGY RESULTS Diastolic Blood Pressure mmHg RADIOLOGY RESULTS Ventricular Rate 65 BPM RAD IOLOGY RESULTS Atrial Rate 65 BPM RADIOLOG Y RESULTS MS Interval 150 ms RADIOLOG Y RESULTS QRS Duration 86 ms RADIOLO GY RESULTS QT 398 ms RADIOLOGY RESULTS QTc 413 ms RADIOLOGY RESULTS P Cameron 43 degrees RADIOLOGY RESULTS R AXIS 61 degrees RADIOLOGY RESULTS T Cameron 45 degrees RADIOLOGY RESULTS Interpretation ECG Sinus rhythm Normal ECG When compared with ECG of 28-Oct-2024 15:14, (unconfirmed ) Vent. rate has decreased by 32 bpm Confirmed by - EMERGENCY ROOM, PHYSICIAN ([id number]), editorial project manager KEYLA MERIDA ([id number]) on 10/29/2024 6:55:27 AM RADIOLOGY RESULTS 10/28/2024 5:27 PM CDT 10/29/2024 6:55 AM CDT Jeffrey Fofana MD ECG ORDERABLES Edited Res ult - Final RADIOLOGY RESULTS * D dimer quantitative (10/28/2024 4:20 PM [...] cut-off value is 0.50 ug/mL FEU. Jeffrey Fofana MD LAB - BLOOD ORDERABLES Fin al Result LABORATORY [facility] Acute Care Lab [address] Lab (1st floor, no room number) [place] [phone] * HCG QUALitative (blood) (10/28/2024 4:20 PM CDT) hCG Serum Qualitative Negative Negative REINA 10/28/2024 5:14 PM CDT [facility] Comment:This test is for scr eening purposes. Results should be interpreted along with the clinical picture. Confirmation testing is available if warranted by ordering [id number], HCG Quantitative . Blood STRUCTURE OF RIGHT UPPER LIMB / Unknown Venipuncture / Unknown 10/28/2024 4:20 PM CDT 10/28/2024 4:31 PM CDT us Jeffrey Fofana MD LAB - BLOOD ORDERABLES Fin al Result [facility] [address] Lab (1st floor, no room number) [place] [phone] * (ABNORMAL) CBC with platelets and differential (10/28/2024 4:19 PM CDT) WBC Count 6.6 4.0 - 11.0 10e3/uL [...] BLOOD ORDERABLES Fin al Result [facility] [address] Lab (1st floor, no room number) [place] [address], [facility] * Troponin T, High Sensitivity (10/28/2024 4:19 PM CDT) Troponin T, High Sensitivity <6 <=14 ng/L 10/28/2024 5:02 PM CDT [facility] Comment: Either a High [...] - BLOOD ORDERABLES Fin al Result LABORATORY [facility] [address] [facility] Lab (1st floor, no room number) [place] [address], [facility] * Basic metabolic panel (BMP) (10/28/2024 4:19 PM CDT) [facility] Sodium 137 135 - 145 mmol/L 10/28/2024 5:02 PM CDT LABORATORY Potassium 3.7 3.4 - 5.3 mmol/L [...] - 0.95 mg/dL 10/28/2024 5:02 PM CDT [facility] GFR Estimate >90 >60 mL/min/1.7 3m2 10/28/2024 5:02 PM CDT [facility] Comment:eGFR calculated 2020 CKD-EPI equation. Calcium 9.2 8.8 - 10.4 mg/dL 10/28/2024 5:02 PM CDT [facility] Glucose 86 70 - 99 mg/dL 10/28/2024 5:02 PM CDT [facility] Blood STRUCTURE OF RIGHT UPPER LIMB / Unknown Venipuncture / Unknown 10/28/2024 4:19 PM CDT 10/28/2024 4:32 PM CDT Jeffrey Fofana MD LAB - BLOOD ORDERABLES Fin al Result [facility] [address] Lab (1st floor, no room number) [place] [address] * EKG 12-lead, tracing only (10/28/2024 3:14 PM CDT) Systolic Blood Pressure mmHg RADIOLOGY RESULTS Diastolic Blood Pressure mmHg RADIOLOGY RESULTS Ventricular Rate 97 BPM RAD IOLOGY RESULTS Atrial Rate 97 BPM RADIOLOG Y RESULTS MS Interval 142 ms RADIOLOG Y RESULTS QRS Duration 82 ms RADIOLO GY RESULTS QT 344 ms RADIOLOGY RESULTS QTc 436 ms RADIOLOGY RESULTS P Cameron 52 degrees RADIOLOGY RESULTS R AXIS 56 degrees RADIOLOGY RESULTS T Cameron 28 degrees RADIOLOGY RESULTS Interpretation ECG Sinus rhythm Nonspecific ST abnormality Abnormal ECG When compared with ECG of 27-Aug-2024 20:48, No significant change was found Confirmed by - EMERGENCY ROOM, PHYSICIAN ([id number]), editorial project manager KEYLA MERIDA (Carlos) on 10/29/2024 6:55:43 AM RADIOLOGY RESULTS 10/28/2024 3:14 PM CDT 10/29/2024 6:55 AM CDT Jeffrey Fofana MD ECG ORDERABLES Edited Res ult - Final RADIOLOGY RESULTS documented in this encounter Visit Diagnoses Diagnosis Acute chest pain Chest pain, unspecified documented in this encounter Additional Health Concerns Assessment Noted Time PHQ-9 Depression Total Score: 5 10/25/19 25 10:38 AM CDT documented as of this encounter Care Teams All Source Intelligence Relationship Specialty Start Date End Date Esha Grimm PA-C [address] [place] [address] PCP - General Family Medicine 05/04/23 Diana Desir, [facility] [address] [place] [address] Pharmacist Pharmacist 04/17/21 Rain Galaviz PA-C [address] [place] [address] [address] [place] [address] Physician Patient Services Rep Dermatology 04/28/21 Tavia Wyatt MD [address] [place] [address] [address] [place], [place] [phone] Dermatology 07/14/21 Erica Farrell APRN STATEMENT REQUEST CLERK [address] [place], [place] [phone] Nurse Practitioner Cardiovascular Disease 09/09/21 Rich Barrett MD [address] [place] [address] Physician Ophthalmology 01/21/22 Neil Kent MD [address] [place] [address] Dermatology 02/24/22 Diana Desir, [facility] [address] [place] [address] Assigned MTM Pharmacist 04/07/22 Livan Sharif MD [address] [place] [address] Cardiovascular Disease 05/14/22 Catherine Cm MD [address] [place], [place] [address] Cardiovascular Disease 07/21/22 Valery Veronica PA-C [address] [place] [address] Physician Patient Services Rep Dermatology 07/21/22 Brea Quinn APRN STATEMENT REQUEST CLERK [address] [place] [phone] Nurse Practitioner Dermatology 09/21/22 Radha Lomeli APRN STATEMENT REQUEST CLERK [address] [place] [address] [address] [place], [place] [address] Assigned Heart and Vascular Provider 05/28/23 Jelena David OD [address] [place] [address] [place] [address] Ophthalmology 06/15/23 Esha Grimm PA-C [address] [place] [phone] Assigned PCP 07/16/23 Valery Veronica PA-C [address] [place] [address] Physician Patient Services Rep Dermatology 09/19/23 Rey Tay MD [address] [place] [address] MD Gastroenterology 09/20/23 Rocky Zepeda DO [address] [place] [address] Physician Gastroenterology 09/20/23 Philip Dumont MD [address] [place] [address] Physician Ophthalmology 09/22/23 Meredith Carrera PA-C [address] [place] [address] Assigned Gastroenterology Provider 11/01/23 Neil Kent MD [address] [place] [address] Dermatology 11/02/23 [place] [address] [address] [facility] [place] [address] Neurological Surgery 12/26/23 Audrey Waite PA-C [address] [place] [address] Physician Patient Services Rep Dermatology 02/28/24 Valery Veronica PA-C 3[address]18 [address], [place] [address] Physician Patient Services Rep Dermatology 04/10/24 Herminia Hatch MD [address] [place], [place] [phone] Assigned Rheumatology Provider 07/02/24 Jelena David OD [address] [place] [address] Ophthalmology 08/30/24 [place] [address] [place] [address] Assigned Neuroscience Provider 09/30/24 Maru Man PA-C [address] [place] [address] Physician Patient Services Rep Dermatology 10/03/24 Maru Man PA-C [address] [place] [address] Physician Patient Services Rep Dermatology 10/22/24 documented as of this encounter
--- OUTSIDE RECORDS SUMMARY | 2024-11-21 04:12 | XMS_ITS | Encounter Summary ---
Author Organization [place] Address [address] [place] [address] Care Team Providers Care Lawn Mower Repairer Name Role Phone Lita Oseguera Unavailable Unavailable Marija Edgar APRN TURKEY PICKER Primary Care Provider + Chanelle Mccann APRN CNM Unavailab le Kyara De La Fuente RN Unavailable [phone] Marija Edgar APRN TURKEY PICKER Unavailable [phone] Mynor Broussard MD Unavailable [phone] Keisha Dotson MD Unavailable Galo Burrell MD Unavailable Unavailable Cristina Wood Unavailable Diana Desir [facility] Unavailable Rain Galaviz PA-C Unavailable Summer Lara MD Unavailable Summer Lara MD Unavailable [phone] Summer Lara MD Unavailable [phone] Tavia Wyatt MD Unavailable Johnny Murillo MD Unavailable Erica Farrell APRN TURKEY PICKER Unavailable VikasTeresita [facility] Unavailable Tavia Wyatt MD Unavailable Diana Desir [facility] Unavailable Rich Barrett MD Unavailable [phone] Neil Kent MD Unavailable Roney Story DP Unavailable Erica Farrell APRN TURKEY PICKER Unavailable Diana Desir [facility] Unavailable Jelena David Unavailable Galo Burrell MD Unavailable Unavailable Livan Sharif MD Unavailable Livan Sharif MD Unavailable Catherine Cm MD Unavailable + Valery Veronica-C Unavailable [phone] Catherine Cm MD Unavailable + Jonhny Murillo MD Unavailable [phone] Brea Quinn EXCEL SPECIALIST TURKEY PICKER Unavailable [phone] Brea Quinn EXCEL SPECIALIST TURKEY PICKER Unavailable [phone] Jose Francisco Johnson MD Unavailable Livan Sharif MD Unavailable Catherine Cm MD Unavailable + Sydnie Martinez RN Unavailable Unavailable Alfonso Renteria MD Unavailable Esha Grimm PA-C Primary Care Provider Cheng Todd PA-C Unavailable Radha Lomeli EXCEL SPECIALIST TURKEY PICKER Unavailable Jelena David OD Unavailable [phone] Pao Joseph RN Unavailable Unavailable Esha Grimm PA-C Unavailable [phone] Valery Veronica PA-C Unavailable Rey Tay [...] st Contact Info) Description 01/06/2021 Orders Only [facility] - Surgical Specialties Service Line [address] [place] [address] Saurabh Marcial MD [address] [facility] [address] [place] [address] Indication for care in labor [...] do you attend [facility] or confucianism services? More than 4 times [...] Answer Date Recorded PHQ-2 Score 3 09/29/2020 [facility] - Occupational Stress [...] CDT Legal Sex Female 4:13 AM PUTTY AND PATCH WORKER Gender Identity Female 03/02/2021 5:45 PM [...] Description 11/21/2024 7:00 AM CDT Office Visit [facility] [place] [address] [phone] Maru Man PA-C [address] [address] 12/20/2024 2:30 PM CDT Office Visit [facility] [address] [place] [address] Esha Grimm PA-C [id number] [place] [address] 04/16/2025 11:00 AM CDT Virtual Visit [facility] Gastroenterology Clinic [address] 4th [place] [address] Meredith Carrera PA-C [address] [place] [address] 012875 documented as of this encounter Results * Asymptomatic COVID-19 Virus (Coronavirus) by PCR (01/09/2021 10:44 AM CDT) COVID-19 Virus PCR to [facility] - Source Nasopharyngeal 01/09/2021 10:45 AM CDT [facility] COVID-19 Virus PCR to [facility] - Result Test received-See reflex to IDDL test SARS CoV2 (COVID-19) Virus RT-PCR 01/09/2021 6:32 PM CDT [facility], [facility] Specimen from nasopharyngeal structure (specimen) 01/09/2021 10:44 AM CDT 01/09/2021 10:45 AM CDT us Saurabh Marcial MD LAB - MICRO GENERAL ORDSia HERRERA Final Result INFECTIOUS DISEASES [facility]ST[facility], [facility] [address] [place] [address], [facility] [address] [place] [address], [facility] [phone] documented in this encounter Visit Diagnoses Diagnosis Indication for care in labor and delivery, antepartum- Primary Unspecified indication for care or intervention related to labor and delivery, antepartum documented in this encounter Additional Health Concerns Infection Onset Date Last Indicated Resolved Time Rule Out COVID-19 05/11/2021 05/11/2021 05/13/2021 10:18 AM CDT Rule Out COVID-19 07/13/2021 07/13/2021 07/14/2021 3:04 PM PUTTY AND PATCH WORKER Rule Out COVID-19 07/18/2021 07/18/2021 07/20/2021 1:56 PM PUTTY AND PATCH WORKER COVID-19 07/18/2021 07/18/2021 08/08/2021 11:3 9 PM PUTTY AND PATCH WORKER Rule Out COVID-19 12/18/2021 12/18/2021 12/19/2021 11:34 AM CDT Rule Out COVID-19 02/24/2022 02/24/2022 02/25/2022 1:08 PM CDT Rule Out COVID-19 04/26/2022 04/26/2022 04/26/2022 6:47 AM CDT Rule Out COVID-19 05/17/2022 05/17/2022 05/17/2022 10:20 PM PUTTY AND PATCH WORKER Rule Out COVID-19 06/09/2022 06/09/2022 06/09/2022 9:35 AM PUTTY AND PATCH WORKER COVID-19 06/09/2022 06/09/2022 06/30/2022 11:4 1 PM PUTTY AND PATCH WORKER Rule Out COVID-19 11/10/2022 11/10/2022 11/11/2022 [...] documented as of this encounter Care Teams Lawn Mower Repairer Relationship Specialty Start Date End Date Marija Edgar APRN TURKEY PICKER PCP - General Nurse Practitioner 04/30/20 04/14/23 Esha Grimm PA-C [address] [place] [phone] PCP - General Family Medicine 05/04/23 Lita Oseguera Personal Advocate & Liaison (PAL) 02/28/20 03/27/23 Chanelle Mccann APRN CNM [address] [facility] [address] [place] [address] Assigned OBGYN Provider 05/02/2005/09 Kyara De La Fuente, RN Specialty Audio Tape Librarian Neurology 06/04/20 03/05/21 Marija Edgar APRN TURKEY PICKER Assigned PCP 06/08/20 04/29/23 Mynor Broussard MD [address] [facility] 500 [place] [address] Assigned Surgical Provider 06/01/20 11/28/21 Keisha Dotson MD [address] [place] [address] Assigned Neuroscience Provider 06/04/20 04/01/23 Galo Burrell MD Assigned Heart and Vascular Provider 10/05/20 04/02/22 Cristina Wood Financial Resource Worker 02/09/21 02/09/21 [facility] [address] [place] [address] Pharmacist Pharmacist 04/17/21 Rain Galaviz PA-C [address] [place] [address] [address] [place] [place], [place] [phone] Physician Event Marketing Specialist Dermatology 04/28/21 Summer Lara MD [address] [place] [address] 957204 Assigned OBGYN Provider 05/10/2105/23 Summer Lara MD [address] [place] [address] 253894 Assigned OBGYN Provider 05/31/21 Summer Lara MD [address] [place] [address] 689314 Assigned OBGYN Provider 05/24/2105/30 Tavia Wyatt MD [address] [place] [address] 751894 Dermatology 07/14/21 Johnny Murillo MD [address] [place] [address] Assigned Musculoskeletal Provider 08/30/21 03/17/22 Erica Farrell APRN TURKEY PICKER 6405 [facility] [address] [place], [place] 323845 Nurse Practitioner Cardiovascular Disease 09/09/21 Teresita eBan [facility] [address] [place] [phone] Pharmacist Pharmacist 09/24/21 09/29/21 Tavia Wyatt MD [address] [place] [address] Assigned Surgical Provider 11/29/21 05/07/22 [facility] [address] [place], [place] 993646 Assigned MTM Pharmacist 01/02/22 Rich Barrett MD [address] [place] [address] 908996 Physician Ophthalmology 01/21/22 Neil Kent MD 500 [place], [place] 193715 Dermatology 02/24/22 Roney Story DPM 114[address] [facility] [address] [place], [place] 326867 Assigned Musculoskeletal Provider 03/20/22 08/13/22 Erica Farrell APRN TURKEY PICKER 1700 [place] [address] Assigned Heart and Vascular Provider 04/03/22 04/16/22 Diana Desir, [facility] [address] [place] [address] Assigned MTM Pharmacist 04/07/22 Jelena David OD [address] [facility] [place] [address] Assigned Surgical Provider 05/08/22 10/08/22 Galo Burrell MD Assigned Heart and Vascular Provider 04/17/22 06/11/22 Livan Sharif MD [address] [place] [address] Cardiovascular Disease 05/14/22 Livan Sharif MD [address] [place] [address] Assigned Heart and Vascular Provider 06/12/22 07/23/22 Catherine Cm MD [address] [place] [address] Cardiovascular Disease 07/21/22 Valery Veronica PA-C [address]09 [place] [address] Physician Event Marketing Specialist Dermatology 07/21/22 Catherine Cm MD [address] [place] [address] Assigned Heart and Vascular Provider 07/24/22 11/05/22 Johnny Murillo MD [address] [facility] [address] [place] [address] Assigned Musculoskeletal Provider 08/14/22 10/08/22 Brea Quinn APRN TURKEY PICKER 500 [facility], [place] 667475 Nurse Practitioner Dermatology 09/21/22 Brea Quinn APRN TURKEY PICKER 6401 [facility] [place] [address] Assigned Surgical Provider 10/09/22 05/01/24 [place] [address] 365847 Assigned Musculoskeletal Provider 10/09/22 05/01/24 Livan Sharif MD 6405 [facility] S [facility] [address] [place] [address] Assigned Heart and Vascular Provider 11/06/22 11/12/22 Catherine Cm MD 6[address] [facility] [address] [place] [id number] Assigned Heart and Vascular Provider 11/13/22 05/27/23 Sydnie Martinez RN Personal Advocate & Liaison (PAL) Family Medicine 03/28/23 07/31/23 Alfonso Renteria MD [address]75 [facility] [address] 200 [place] [address] Assigned Neuroscience Provider 04/02/23 09/29/24 Cheng Todd PA-C [address] [place] [address] Assigned PCP 04/30/23 07/15/23 Radha Lomeli APRN TURKEY PICKER 6[address] [facility] [address] [place] [address] Assigned Heart and Vascular Provider 05/28/23 Jelena David OD [address] [facility] [place] [address] Ophthalmology 06/15/23 Pao Joseph, VJ Personal Advocate & Liaison (PAL) Nurse 08/01/23 11/07/23 Esha Grimm PA-C [address] [place] [address] Assigned PCP 07/16/23 Valery Veronica PA-C [address] [place] [address] Physician Event Marketing Specialist Dermatology 09/19/23 Rey Tay MD [address] [place] [address] [phone] Gastroenterology 09/20/23 Rocky Zepeda DO [address] [place] [address] Physician Gastroenterology 09/20/23 Philip Dumont MD [address] [place] [place] [address] Physician Ophthalmology 09/22/23 Meredith Carrera PA-C [address] [place] [address] Assigned Gastroenterology Provider 11/01/23 Neil Kent MD [address] [address] Dermatology 11/02/23 [place] [address] [place], [place] 937917 Neurological Surgery 12/26/23 Audrey Waite PA-C [address] [place] [address] Physician Event Marketing Specialist Dermatology 02/28/24 Valery Veronica PA-C [id number] [address] [place] [address] Physician Event Marketing Specialist Dermatology 04/10/24 Hermiina Hatch MD [address] [place] [address] [phone] Assigned Rheumatology Provider 07/02/24 Jelena David OD [address] [place] [address] [place] [address] Ophthalmology 08/30/24 [place] [address] [place] [address] Assigned Neuroscience Provider 09/30/24 Maru Man PA-C [address] [place] [address] Physician Event Marketing Specialist Dermatology 10/03/24 Maru Man PA-C [address] [place] [address] Physician Event Marketing Specialist Dermatology 10/22/24 Jelena David OD [address] [place] [address] [place] [address] Assigned Surgical Provider 10/31/24 documented as of this encounter
[2024-11-21 04:13] VITALS: BP 125/81; PULSE 109; RESP 20; TEMP 36.7; O2SAT 96; BMI 32.3
--- OUTSIDE RECORDS SUMMARY | 2024-11-21 04:13 | XMS_ITS | Encounter Summary ---
Author Organization [place] Address [address] [place] [address] Care Team Providers Care Travel Counselor Automobile Club Name Role Phone Lita Oseguera Unavailable Unavailable Marija Edgar APRN MEDICAL RECORD SPECIALIST Primary Care Provider + Marija Edgar APRN MEDICAL RECORD SPECIALIST Unavailable [phone] Keisha Dotson MD Unavailable [phone] Diana Desir [facility] Unavailable Rain Galaviz PA-C Unavailable Tavia Wyatt MD Unavailable Erica Farrell APRN MEDICAL RECORD SPECIALIST Unavailable Tavia Wyatt MD Unavailable [phone] Rich Barrett MD Unavailable [phone] Neil Kent MD Unavailable Roney Story DPM Unavailable Diana Desir [facility] Unavailable Jelena David OD Unavailable Galo Burrell MD Unavailable Unavailable Livan Sharif MD Unavailable Livan Sharif MD Unavailable IsCatherine hobbs MD Unavailable + Valery Veronica PA-C Unavailable Catherine Cm MD Unavailable + Johnny Murillo MD Unavailable Brea Quinn OCTAVE BOARD ASSEMBLER MEDICAL RECORD SPECIALIST Unavailable [phone] Brea Quinn OCTAVE BOARD ASSEMBLER MEDICAL RECORD SPECIALIST Unavailable [phone] Jose Francisco Johnson MD Unavailable Livan Sharif MD Unavailable Catherine Cm MD Unavailable + Sydnie Martinez RN Unavailable Unavailable Alfonso Renteria MD Unavailable [phone] Esha Grimm PA-C Primary Care Provider Cheng Todd PA-C Unavailable Radha Lomeli OCTAVE BOARD ASSEMBLER MEDICAL RECORD SPECIALIST Unavailable Jelena David OD Unavailable Pao Joseph RN Unavailable Unavailable Esha Grimm PA-C Unavailable [phone] Valery Veronica PA-C Unavailable Rey Tay MD Unavailable Rocky Zepeda DO Unavailable Philip Dumont MD Unavailable Meredith Carrera PA-C Unavailable Neil Kent MD Unavailable Juan Pablo Emmanuel MD Unavailable Audrey Waite PA-C Unavailable Valery Veronica PA-C Unavailable Herminia Hatch MD Unavailable Jelena David OD Unavailable [phone] Juan Pablo Emmanuel MD Unavailable [phone] Maru Man PA-C Unavailable +[phone] Maru Man PA-C Unavailable + Jelena David OD Unavailable [phone] Encounter Details Date Type Department Care Team (Late st Contact Info) Description 05/01/2022 [facility] Medical Advice [address] [address] Diana Desir, [facility] [address] [place], [place] 122246 Social History Tobacco Use Types Packs/Day Years [...] How often do you attend holiness or methodist serv ices? Never 09/22/2021 Do [...] Answer Date Recorded PHQ-2 Score 2 12/18/2021 [facility] [...] in a jail (including now)? No 09/22/2021 Baxter Depression Scale Answer Date Recorded Baxter Depression Score 5 01/14/2021 Last EPDS Self Harm Result Not on file 01/14 Education Answer Date Recorded What is the highest level of school you have completed or the highest degree you have received? 12th grade 08/07/2020 Comments No Sex and Gender Information Value Date Recorded Sex Assigned at Female 03/02/2021 5:45 PM CDT Legal Sex Female 4:13 AM EXECUTIVE MEETING MANAGER Gender Identity Female 03/02/2021 5:45 PM [...] Upcoming Encounters Date Type Department Care Team ([facility] st Contact Info) Description 11/21/2024 7:00 AM CDT Office Visit [address] [address] Maru Man PA-C [address] [address] 12/20/2024 2:30 PM CDT Office Visit [facility] [address] [place] [address] Esha Grimm PA-C [id number] [place] [address] 04/16/2025 11:00 AM CDT Virtual Visit [facility] Gastroenterology Clinic [place] 4[address] [facility] [address] 4th [place] [address] Meredith Carrera PA-C [address] [place] [address] documented as of this encounter Visit Diagnoses Not on filedocumented in this encounter Additional Health Concerns Infection Onset Date Last Indicated Resolved Time Rule Out COVID-19 05/17/2022 05/17/2022 05/17/2022 10:20 PM EXECUTIVE MEETING MANAGER Rule Out COVID-19 06/09/2022 06/09/2022 06/09/2022 9:35 AM EXECUTIVE MEETING MANAGER COVID-19 06/09/2022 06/09/2022 06/30/2022 11:4 1 PM EXECUTIVE MEETING MANAGER Rule Out COVID-19 11/10/2022 11/10/2022 11/11/2022 [...] as of this encounter Care Teams Travel Counselor Automobile Club Relationship Specialty Start Date End Date Marija Edgar APRN CNP PCP - General Nurse Practitioner 04/30/20 04/14/23 Esha Grimm PA-C [address] [place] [address] PCP - General Family Medicine 05/04/23 Lita Oseguera Personal Advocate & Liaison (PAL) 02/28/20 03/27/23 Marija Edgar APRN MEDICAL RECORD SPECIALIST Assigned PCP 06/08/20 04/29/23 Keisha Dotson MD 909 [place] [address] Assigned Neuroscience Provider 06/04/20 04/01/23 [facility] [address] [place] [address] Pharmacist Pharmacist 04/17/21 Rain Galaviz PA-C [address] [place] [address] [address] [place] [address] Physician Rn Allergy Dermatology 04/28/21 Tavia Wyatt MD [address] [place] [address] [address] [place] [address] Dermatology 07/14/21 Erica Farrell APRN MEDICAL RECORD SPECIALIST 6405 [facility] [address] [place] 902195 Nurse Practitioner Cardiovascular Disease 09/09/21 Tavia Wyatt MD [address] [place] [address] Assigned Surgical Provider 11/29/21 05/07/22 Rich Barrett MD [address] [place] [address] Physician Ophthalmology 01/21/22 Neil Kent MD 500 [place] [address] Dermatology 02/24/22 Roney Story DPM [address] [facility] [address] [place], [place] 210257 Assigned Musculoskeletal Provider 03/20/22 08/13/22 Diana Desir, [facility] [address] [place], [place] 9[address]86 Assigned MTM Pharmacist 04/07/22 Jelena David OD [address] [facility] [place] [address] Assigned Surgical Provider 05/08/22 10/08/22 Galo Burrell MD Assigned Heart and Vascular Provider 04/17/22 06/11/22 Livan Sharif MD [address] [place] 810675 Cardiovascular Disease 05/14/22 Livan Sharif MD [address] [place] 254235 Assigned Heart and Vascular Provider 06/12/22 07/23/22 Catherine Cm MD [address] [place] 672925 Cardiovascular Disease 07/21/22 Valery Veronica, PA-C 9 [place] [address] Physician Rn Allergy Dermatology 07/21/22 Catherine Cm MD [address] [place] [address] Assigned Heart and Vascular Provider 07/24/22 11/05/22 Johnny Murillo MD [address] [place] [address] Assigned Musculoskeletal Provider 08/14/22 10/08/22 Brea Quinn APRN MEDICAL RECORD SPECIALIST [address] [place] [address] Nurse Practitioner Dermatology 09/21/22 Brea Quinn APRN MEDICAL RECORD SPECIALIST [address] [place] [address] Assigned Surgical Provider 10/09/22 05/01/24 [place] [address] [address] Assigned Musculoskeletal Provider 10/09/22 05/01/24 Livan Sharif MD [address] [place] [address] [place] [address] Assigned Heart and Vascular Provider 11/06/22 11/12/22 Catherine Cm MD [address] [place] [address] Assigned Heart and Vascular Provider 11/13/22 05/27/23 Sydnie Martinez, RN Personal Advocate & Liaison (PAL) Family Medicine 03/28/23 07/31/23 Alfonso Renteria MD 5775 [facility] 200 [place], [place] 759816 Assigned Neuroscience Provider 04/02/23 09/29/24 Cheng Todd PA-C [address] [place] [address] [phone] Assigned PCP 04/30/23 07/15/23 Radha Lomeli APRN MEDICAL RECORD SPECIALIST [address] [place] [address] Assigned Heart and Vascular Provider 05/28/23 Jelena David OD [address] [facility] [place] [address] Ophthalmology 06/15/23 Pao Joseph RN Personal Advocate & Liaison (PAL) Nurse 08/01/23 11/07/23 Esha Grimm PA-C [address] [place] [address] Assigned PCP 07/16/23 Valery Veronica PA-C [address] [place] [address] 780685 Physician Rn Allergy Dermatology 09/19/23 Rey Tay MD [address] [place] [address] MD Gastroenterology 09/20/23 Rocky Zepeda DO [address] [place] [address] Physician Gastroenterology 09/20/23 Philip Dumont MD [address] [place] [address] Physician Ophthalmology 09/22/23 Meredith Carrera PA-C [address] [place] [address] 796035 Assigned Gastroenterology Provider 11/01/23 Neil Kent MD [address] [place] [address] 552200 MD Dermatology 11/02/23 [place] [address] 633837 Neurological Surgery 12/26/23 Audrey Waite PA-C [address] [place] [address] Physician Rn Allergy Dermatology 02/28/24 Valery Veronica PA-C 569574 [address] [address] Physician Rn Allergy Dermatology 04/10/24 Herminia Hatch MD [address] [place] [address] Assigned Rheumatology Provider 07/02/24 Jelena David, SONJA [address] [facility] [place] [address] Ophthalmology 08/30/24 [place] [address] [place] [address] Assigned Neuroscience Provider 09/30/24 Maru Man PA-C [address] [place] [address] Physician Rn Allergy Dermatology 10/03/24 Maru Man PA-C [address] [address] Physician Rn Allergy Dermatology 10/22/24 Jelena David, SONJA [address] [facility] [place] [address] Assigned Surgical Provider 10/31/24 documented as of this encounter
--- OUTSIDE RECORDS SUMMARY | 2024-11-21 04:13 | XMS_ITS | Encounter Summary ---
Author Organization [facility] Address [address] [place] [address] Care Team Providers Care Bed Manager Name Role Phone Diana Desir Stanislav [facility] Unavailable Rain Galaviz PA-C Unavailable Tavia Wyatt MD Unavailable Erica Farrell APRN SOIL CHECKER Unavailable Rich Barrett MD Unavailable [phone] Neil Kent MD Unavailable ThangKendrickDiana Stanislav [facility] Unavailable [phone] Livan Sharif MD Unavailable Catherine Cm MD Unavailable + Valery Veronica-C Unavailable Brea Quinn MECHANICAL ASSEMBLER SOIL CHECKER Unavailable [phone] Esha Grimm PA-C Primary Care Provider Radha Lomeli APRN SOIL CHECKER Unavailable Jelena David OD Unavailable Esha Grimm PA-C Unavailable [phone] Valery Veronica PA-C Unavailable Rey Tay MD Unavailable Rocky Zepeda DO Unavailable Philip Dumont MD Unavailable [phone] Meredith Carrera PA-C Unavailable [phone] Neil Kent MD Unavailable Juan Pablo Emmanuel MD Unavailable [phone] Audrey Waite PA-C Unavailable [phone] Valery Veronica PA-C Unavailable Herminia Hatch MD Unavailable Jelena David OD Unavailable Juan Pablo Emmanuel MD Unavailable [phone] Maru Man-C Unavailable [phone] Maru Man-C Unavailable [phone] Jelena David OD Unavailable [phone] Reason for Referral * Consultation (Routine: Next available opening) - Pending Review Specialty Diagnoses / Procedures Referred By Qian mayers Referred To Contact Gastroenterology Diagnoses Eosinophilic esophagitis Meredith Carrera PA-C [address] [place] [address] Phone: tel: fax: Referral ID Status Reason Start Date Expiration Date V isits Requested Visits Authorized [id number] Pending Review 11/02/2024 11/02/2025 1 1 Scheduling [...] gastric biopsies for H Pylori Preferred Location: [facility] Patient Scheduling Instructions: [facility] will call you to coordinate your care as prescribed by the provider. If you don t hear from a accounts payable representative within 2 business days, please call . Comments Please be aware that coverage of these services is subject to the terms and limitations of your health insurance plan. Call member services at your health plan with any benefit or coverage questions. [facility] will call you to coordinate your care as prescribed by the provider. If you don t hear from a accounts payable representative within 2 business days, please call . * Nutrition (Routine: Next available opening) - Pending Review Specialty Diagnoses / Procedures Referred By Qian t Referred To Contact Gastroenterology Diagnoses Eosinophilic esophagitis Meredith Carrera PA-C [address] [place] [address] Phone: tel: fax: [place] [place], [address] [place] [address] Phone: tel: fax: Referral ID Status Reason Start Date Expiration Date V isits Requested Visits Authorized [id number] Pending Review 11/02/2024 11/02/2025 1 1 Question [...] Description 11/02/2024 7:45 AM CDT Virtual Visit [facility] [address] [place] [address] Meredith Carrera PA-C [address] [place] [address] Bloating symptom (Primary Dx); Irregular bowel habits; [...] Answer Date Recorded PHQ-2 Score 1 10/24/2024 [facility] [place] [facility] - Occupational Stress [...] exercise at this level? 20 min 05/07/2024 [place] Depression Scale Answer Date Recorded [place] Depression Score 5 01/14/2021 Last EPDS Self [...] PM CDT Legal Sex Female 4:13 AM MEDICAL IMAGING SPECIALIST Gender Identity Female 03/02/2021 5:45 PM [...] to obtain follow up with [place] loading rack supervisor and initiate a dairy free diet with [...] a low FODMAP diet provided by the [facility]:[email or web address] -- Many patients do benefit from discussion with a registered private duty nurse to discuss these dietary options -- Attempt [...] times daily Please call my nurse Desmond ([phone]) or Damaris ([phone] ) with any questions or concerns. See below for any additional questions and scheduling guidelines. Sign up for [employer]: [employer] patient portal serves as a secure platform for accessing your medical records from the [facility]. Additionally, [employer] facilitates easy, timely, and securemessaging with your care team. If you have not signed up, you may do so by using the provided code or calling [phone]. Coordinating your care after your visit: There are multiple options for scheduling your follow-up care based on your provider's recommendation. How do I schedule a follow-up clinic appointment: After your appointment, you may receive scheduling assistance with the Clinic Coordinators by having a seat in the waiting room and a Food And Beverage Order Clerk will call you up to schedule. Virtual visits or after you leave the clinic: Your provider has placed a follow-up order in the [employer] portal for scheduling your return appointment. A member of the scheduling team will contact you to schedule. [employer] Scheduling: Timely scheduling through [employer] is advised to ensure appointment availability. Call to schedule: You may schedule your follow-up appointment(s) by calling [phone], option 1. How do I schedule my endoscopy or colonoscopy procedure: If a procedure, such as a colonoscopy or upper endoscopy was ordered by your provider, the scheduling team will contact you to schedule this procedure. Or you may choose to call to schedule at [phone], option 2. Please allow 20-30 minutes when scheduling a procedure. How do I get my blood work done? To get your blood work done, you need to schedule a lab appointment at an [facility]. There are multiple ways to schedule: At the clinic: The Food And Beverage Order Clerk you meet after your visit can help you schedule a lab appointment. MyChart scheduling: [employer] offers online lab scheduling at all [facility] laboratory locations. Call to schedule: You can call [phone] to schedule your lab appointment. How do I schedule my imaging study: To schedule imaging studies, such as CT scans, ultrasounds, MRIs, or X-rays, contact Imaging Services at [phone]. How do I schedule a referral to another doctor: If your provider recommended a referral to another specialist(s), the referral order was placed by your provider. You will receive a phone call to schedule this referral, or you may choose to call the number attached to the referral to self-schedule. For Post-Visit Question(s): For any inquiries following today's visit: Please utilize [employer] messaging and allow 48 hours for reply or contact the Call Center during normal business hours at [phone], option 3. For Emergent After-hours questions, contact the On-Call GI Fellow through the [facility] at . In addition, you may contact your Nurse directly using the provided contact information. Test Results: Test results will be accessible via [employer] in compliance with the [employer]. This means [...] PA-C Division of Gastroenterology, Hepatology, and Nutrition [facility] documented in this encounter Progress Notes * Meredith Carrera PA-C - 11/02/2024 7:45 AM CDT Images from the original note were not included. Virtual Visit Details Type of service: Video Visit Video Start Time: 7:50 AM Video End Time:8:11 AM Originating Location (pt. Location): Home Distant Location (provider location): On-site Platform used for Video Visit: [facility] Gastroenterology Visit for: Kim Johnson 2000 Reason for Visit: chief complaint Referred by: Jasvir / Mar [facility] [address] Patient Care Team: Esha Grimm PA-C as PCP - General (Family Medicine) Diana Desir RPH as Pharmacist (Pharmacist) Rain Galaviz PA-C as Physician Computer Systems Information Director (Dermatology) Tavia Wyatt MD as MD (Dermatology) Erica Farrell APRN SOIL CHECKER as Nurse Practitioner (Cardiovascular Disease) Rich Barrett MD as Physician (Ophthalmology) Neil Kent MD as MD (Dermatology) Diana Desir RP as Assigned MTM Pharmacist Livan Sharif MD as MD (Cardiovascular Disease) Catherine Cm MD as MD (Cardiovascular Disease) Valery Veronica PA-C as Physician Computer Systems Information Director (Dermatology) Brea Quinn APRN SOIL CHECKER as Nurse Practitioner (Dermatology) Radha Lomeli APRN SOIL CHECKER as Assigned Heart and Vascular Provider Jelena David OD as MD (Ophthalmology) Esha Grimm PA-C as Assigned PCP Valery Veronica PA-C as Physician Computer Systems Information Director (Dermatology) Rey Tay MD as (Gastroenterology) Rocky Zepeda DO as Physician (Gastroenterology) Philip Dumont MD as Physician (Ophthalmology) Meredith Carrera PA-C as Assigned Gastroenterology Provider Neil Kent MD as (Dermatology) Juan Pablo Emmanuel MD as MD (Neurological Surgery) Audrey Waite PA-C as Physician Computer Systems Information Director (Dermatology) Valery Veronica PA-C as Physician Computer Systems Information Director (Dermatology) Herminia Hatch MD as Assigned Rheumatology Provider Jelena David OD as MD (Ophthalmology) Juan Pablo Emmanuel MD as Assigned Neuroscience Provider Maru Man PA-C as Physician Computer Systems Information Director (Dermatology) Maru Man PA-C as Physician Computer Systems Information Director (Dermatology) Jelena David OD as Assigned Surgical [...] Bowel patterns are occurring daily consistent with Howell Stool Scale Type 4/5. Described as 50/50between [...] Ablation SVT; Surgeon: Galo Burrell MD; Location: [facility] CARDIAC RADIOGRAPHER ESOPHAGOSCOPY, GASTROSCOPY, DUODENOSCOPY (EGD), COMBINED N/A 06/26/2021 [...] 2021 Other Topics Concern Parent/sibling w/ CABG, TN or angioplasty before 65F 55M? No Social [...] 20 min Stress: Stress Concern Present (05/07/2024) [facility] [place] [facility] - Occupational Stress Questionnaire Feeling of Stress : To some extent Social Connections: Moderately Isolated (05/07/2024) Social Connection and Isolation Panel [NHANES] Frequency of Communication with Friends and Family: Three times a week Frequency of Social Gatherings with Friends and Family: Once a week Attends Christianity Services: 1 to 4 times per year [...] Medium Added automatically from request for surgery [id number] Left ureteral stone 05/27/2020 Priority: Medium Added automatically from request for surgery [id number] Head ache 02/18/2020 Priority: Medium Seizure (H) [...] Hernia - 3 cm EGD 09/12/2023 EREFS [id number]. Additional findings were notable for 3 cm [...] Inessa WD, Yoli BMR. Am J Gastroenterol 2020;115:1171-8602).This was discussed with the patient in detail. The quality of research studies was described (retrospective vs prospective). Data from recent review article provided (Duane MCGOWAN, John PO. Proton Pump Inhibitors in 2020: Pros, Cons, and Everything in Between. Foregut. November 2020. Doi:10.1177/[id number]). The value of joint decision making was [...] to obtain follow up with [place] loading rack supervisor and per patient request initiate a dairy [...] a low FODMAP diet provided [facility] the [facility]:[email or web address] -- Many patients do benefit from discussion with a registered private duty nurse to discuss these dietary options -- Attempt [...] PA-C Division of Gastroenterology, Hepatology, and Nutrition [facility] Documentation assisted by voice recognition and documentation system. documented in this encounter Nursing Notes * Kiah Dominguez - 11/02/2024 7:45 AM CDT Current patient location: [address] [place] [address] Is the patient currently in the state of [place]? YES Visit mode: VIDEO If the visit is dropped, the patient can be reconnected by:VIDEO VISIT: Send to e-mail at: [email or web address] Will anyone else be joining the visit? NO (If patient encounters technical issues they should call [phone] :[phone]) Are changes needed to the allergy or medication list? No Are refills needed on medications prescribed by this physician? NO Rooming Documentation: Unable to complete questionnaire(s) due to time Reason for visit: CHAVA Dominguez VVF documented in this encounter Plan of Treatment Upcoming Encounters Date Type Department Care Team (Late st Contact Info) Description 11/21/2024 7:00 AM CDT Office Visit [address] [phone] Maru Man PA-C [address] [place] [address] 12/20/2024 2:30 PM CDT Office Visit [facility] [address] [place] [address] Esha Grimm PA-C [address] [place] [address] 04/16/2025 11:00 AM CDT Virtual Visit [facility] [address] 4th [place] [address] Meredith Carrera PA-C [address] [place] [address] Pending Results Name Type Priority Associated Diagnoses Date /Time TSH with free T4 reflex Lab Routine Viral URI with cough Irregular bowel habits 11/20/2024 3:16 PM CDT Tissue transglutaminase dennis IgA and IgG Lab Routine Viral URI with cough Irregular bowel habits 11/20/2024 11:40 AM CDT IgA Lab Routine Viral URI with cough Irregular bowel habits 11/20/2024 11:40 AM CDT CRP inflammation Lab Routine Viral URI with cough Irregular bowel habits 11/20/2024 3:16 PM CDT Scheduled Orders Name Type Priority Associated Diagnoses Orde r Schedule TSH with free T4 reflex Lab Routine Bloating symptom Irregular bowel habits Expected: 11/02/2024 (Approximate), Expires: 11/02/2025 Tissue transglutaminase dennis IgA and IgG Lab Routine Bloating symptom Irregular bowel habits Expected: 11/02/2024 (Approximate), Expires: 11/02/2025 IgA Lab Routine Bloating symptom Irregular bowel habits Expected: 11/02/2024 (Approximate), Expires: 11/02/2025 CRP inflammation Lab Routine Bloating symptom Irregular bowel habits Expected: 11/02/2024 (Approximate), Expires: 11/02/2025 Calprotectin Feces Lab Routine Bloating symptom Irregular bowel habits Expected: 11/02/2024 (Approximate), Expires: 11/02/2025 Scheduled Referrals Name Type Priority Associated Diagnoses Orde r Schedule Adult Nutrition Public Records Officer Referral Referral Routine: Next available opening Eosinophilic esophagitis Expected: 11/02/2024 (Approximate), Expires: 11/02/2025 Adult GI Public Records Officer Referral - Procedure Only Referral Routine: Next available opening Eosinophilic esophagitis Expected: 02/01/2025 (Approximate), Expires: 11/02/2025 documented as of this encounter Visit Diagnoses Diagnosis Bloating symptom- Primary Flatulence, eructation, and gas pain Irregular bowel habits Other specified disorder of intestines Eosinophilic esophagitis documented in this encounter Additional Health Concerns Assessment Noted Time PHQ-9 Depression Total Score: 5 10/25/19 10:38 AM CDT documented as of this encounter Care Teams Bed Manager Relationship Specialty Start Date End Date Esha Grimm PA-C [address] [place] [address] PCP - General Family Medicine 05/04/23 Diana Desir [facility] [address] [place], [place] [phone] Pharmacist Pharmacist 04/17/21 Rain Galaviz PA-C [address] [place] [address] [address] [place] [address] Physician Computer Systems Information Director Dermatology 04/28/21 Tavia Wyatt MD [address] [place] [address] [address] [place] [address] Dermatology 07/14/21 Erica Farrell APRN SOIL CHECKER [address] [facility] [address] [place] [address] Nurse Practitioner Cardiovascular Disease 09/09/21 Rich Barrett MD [address] [place] [phone] Physician Ophthalmology 01/21/22 Neil Kent MD [address] [place], [place] [phone] Dermatology 02/24/[address] [facility] [address] [place], [place] [address] Assigned MTM Pharmacist 04/07/22 Livan Sharif MD [address] [place] [address] Cardiovascular Disease 05/14/22 Catherine Cm MD [address] [place] [address]75 Cardiovascular Disease 07/21/22 Valery Veronica, PA-C [address] [place], [place] [address] Physician Computer Systems Information Director Dermatology 07/21/22 Brea Quinn APRN SOIL CHECKER [address] [place] [address] Nurse Practitioner Dermatology 09/21/22 Radha Lomeli APRN SOIL CHECKER [address] [place] [phone] Assigned Heart and Vascular Provider 05/28/23 Jelena David OD [address] [place] [address] MD Ophthalmology 06/15/23 Esha Grimm PA-C [address] [place] [phone] Assigned PCP 07/16/23 Valery Veronica PA-C [address] [place] [address] Physician Computer Systems Information Director Dermatology 09/19/23 Rey Tay MD [address] [place] [address] MD Gastroenterology 09/20/23 Rocky Zepeda DO [address] [place] [address]225 Physician Gastroenterology 09/20/23 Philip Dumont MD [address] [place] [address] Physician Ophthalmology 09/22/23 Meredith Carrera PA-C [address] [place] [address] Assigned Gastroenterology Provider 11/01/23 Neil Kent MD [address] [place] [id number] Dermatology 11/02/23 [place] [address] [place] [address] Neurological Surgery 12/26/23 Audrey Waite PA-C [address] [place] [address] Physician Computer Systems Information Director Dermatology 02/28/24 Valery Veronica PA-C [id number] [place] [address] Physician Computer Systems Information Director Dermatology 04/10/24 Herminia Hatch MD [address] [place] [address] Assigned Rheumatology Provider 07/02/24 Jelena David OD [address] [place] [address] [place] [address] Ophthalmology 08/30/24 [place] [address] [place] [address] Assigned Neuroscience Provider 09/30/24 Maru Man PA-C [address] [place] [address] Physician Computer Systems Information Director Dermatology 10/03/24 Maru Man PA-C [address] [place] [address] Physician Computer Systems Information Director Dermatology 10/22/24 Jelena David OD [address] [place] [address] [place] [address] Assigned Surgical Provider 10/31/24 documented as of this encounter
--- OUTSIDE RECORDS SUMMARY | 2024-11-21 04:13 | XMS_ITS | Encounter Summary ---
Author Organization [facility] Address [address] [place] [address] Care Team Providers Care Ammonia Box Operator Name Role Phone Diana Desir Stanislav [facility] Unavailable Rain Galaviz PA-C Unavailable Tavia Wyatt MD Unavailable Erica Farrell APRN HEAD OF MARKETING ANALYTICS Unavailable Rich Barrett MD Unavailable [phone] Neil Kent MD Unavailable ThangKendrickDiana Stanislav [facility] Unavailable [phone] Livan Sharif MD Unavailable Catherine Cm MD Unavailable + Valery Veronica-C Unavailable [phone] Brea Quinn FORENSIC ENGINEER HEAD OF MARKETING ANALYTICS Unavailable Esha Grimm PA-C Primary Care Provider Radha Lomeli APRN HEAD OF MARKETING ANALYTICS Unavailable Jelena David OD Unavailable [phone] Esha Grimm PA-C Unavailable [phone] Valery Veronica PA-C Unavailable Rey Tay MD Unavailable Duane Rocky Unavailable Philip Dumont MD Unavailable [phone] LoreMeredith mayers PA-C Unavailable [phone] Neil Kent MD Unavailable Juan Pablo Emmanuel MD Unavailable Audrey Waite PA-C Unavailable [phone] Valery Veronica PA-C Unavailable Herminia Hatch MD Unavailable Jelena David OD Unavailable Juan Pablo Emmanuel MD Unavailable [phone] Maru Man-C Unavailable [phone] Maru Man-C Unavailable [phone] Jelena David OD Unavailable Encounter Details Date Type Department Care Team (Late st Contact Info) Description 11/09/2024 [facility] [place] [facility] [address] [address] Apolinar Gresham Social History Tobacco Use Types Packs/Day Years [...] Answer Date Recorded PHQ-2 Score 1 10/24/2024 [facility] - Occupational Stress [...] exercise at this level? 20 min 05/07/2024 [place] Depression Scale Answer Date Recorded [place] Depression Score 5 01/14/2021 Last EPDS Self [...] PM CDT Legal Sex Female 4:13 AM CURRICULUM SPECIALIST Gender Identity Female 03/02/2021 5:45 PM CDT Sexual Orientation Straight 02/28/2020 12 :51 AM CDT documented as of this encounter Plan of Treatment Upcoming Encounters Date Type Department Care Team (Late st Contact Info) Description 11/21/2024 7:00 AM CDT Office Visit [address] [phone] Maru Man PA-C [address] [address] 12/20/2024 2:30 PM CDT Office Visit [facility] [id number] [place] [phone] Esha Grimm PA-C [address] [place] [phone] 04/16/2025 11:00 AM CDT Virtual Visit [facility] [address] [place] [phone] Meredith Carrera PA-C [address] [place] [address] documented as of this encounter Visit Diagnoses Not on filedocumented in this encounter Additional Health Concerns Infection Onset Date Last Indicated Resolved Time Rule Out COVID-19 11/20/2024 11/20/2024 Assessment Noted Time PHQ-9 Depression Total Score: 5 10/25/19 25 10:38 AM CDT documented as of this encounter Care Teams Ammonia Box Operator Relationship Specialty Start Date End Date Esha Grimm PA-C [address] [place] [phone] PCP - General Family Medicine 05/04/23 Diana Desri, [facility] [address] [place], [place] 6[address] Pharmacist Pharmacist 04/17/21 Rain Galaviz PA-C [address] [place] [address] [address] [place] [address] Physician Trailer Truck Driver Dermatology 04/28/21 Tavia Wyatt MD [address] [place] [address] EN[place] KNUTSON [id number] Dermatology 07/14/21 Erica Farrell APRN HEAD OF MARKETING ANALYTICS [address] [facility] [address] [place] [id number] Nurse Practitioner Cardiovascular Disease 09/09/21 Rich Barrett MD [address] [place] [address] Physician Ophthalmology 01/21/22 Neil Kent MD 500 [place], [place] 614435 Dermatology 02/24/22 Diana Desir, [facility] [address] [place], [place] 792636 Assigned MTM Pharmacist 04/07/22 Livan Sharif MD [address] [place], [place] 502825 Cardiovascular Disease 05/14/22 Catherine Cm MD [address] 678645 Cardiovascular Disease 07/21/22 Valery Veronica, PA-C 909 [place], [place] 899015 Physician Trailer Truck Driver Dermatology 07/21/22 Brea Quinn APRN HEAD OF MARKETING ANALYTICS 500 [place], [place] 636645 Nurse Practitioner Dermatology 09/21/22 Radha Lomeli APRN HEAD OF MARKETING ANALYTICS [address] [place] 8[address]195 Assigned Heart and Vascular Provider 05/28/23 [place]elena David OD [address] [place] [address] MD Ophthalmology 06/15/23 Esha Grimm PA-C [address] [place] [phone] Assigned PCP 07/16/23 Valery Veronica PA-C [address] [place] [address] 752425 Physician Trailer Truck Driver Dermatology 09/19/23 Rey Tay MD [address] [place] [address] 722275 MD Gastroenterology 09/20/23 Rocky Zepeda DO [address] [place] [address] 193565 Physician Gastroenterology 09/20/23 Philip Dumont MD 6 [place], [place] 900565 Physician Ophthalmology 09/22/23 Meredith Carrera PA-C [address] [place] [address] 263685 Assigned Gastroenterology Provider 11/01/23 Neil Kent MD [address] 248910 Dermatology 11/02/23 [place] [address] [place] [address] Neurological Surgery 12/26/23 Audrey Waite PA-C 500 [place] [address] Physician Trailer Truck Driver Dermatology 02/28/24 Valery Veronica PA-C [address] [place] [address] Physician Trailer Truck Driver Dermatology 04/10/24 Herminia Hatch MD [address] [place] [address] Assigned Rheumatology Provider 07/02/24 Jelena David OD [address] [place] [address] [place] K[place] [address] Ophthalmology 08/30/24 [place] [address] [place] [address] Assigned Neuroscience Provider 09/30/24 Maru Man PA-C [address] [place] [address] Physician Trailer Truck Driver Dermatology 10/03/24 Maru Man PA-C [address] [place] [address] Physician Trailer Truck Driver Dermatology 10/22/24 Jelena David OD [address] [place] [address] [place] [address] Assigned Surgical Provider 10/31/24 documented as of this encounter
--- OUTSIDE RECORDS SUMMARY | 2024-11-21 04:13 | XMS_ITS | Encounter Summary ---
Author Organization [place] [facility] Address [address] [place] [address] Care Team Providers Care Mirror Machine Feeder Name Role Phone Lita Oseguera Unavailable Unavailable Marija Edgar APRN CHRISTMAS BELL RINGER Primary Care Provider + Chanelle Mccann FAMILY AND CONSUMER SCIENCES TEACHER CNM Unavailab le Kyara De La Fuente RN Unavailable [phone] Marija Edgar APRN CHRISTMAS BELL RINGER Unavailable [phone] Mynor Broussard MD Unavailable [phone] Keisha Dotson MD Unavailable Stacey Briones PUBLIC ADDRESS SYSTEM OPERATOR Unavailable [phone] Mary Mejia Unavailable Unavailable Galo Burrell MD Unavailable Unavailable Cristina Wood Unavailable Lesley Guillermo CHW Unavailable [phone] Meredith Bedoya Unavailable Unavailable Cristina Wood Unavailable Diana Desir [facility] Unavailable Rain Galaviz PA-C Unavailable Summer Lara MD Unavailable [phone] Summer Lara MD Unavailable [phone] Summer Lara MD Unavailable [phone] Tavia Wyatt MD Unavailable [phone] Johnny Murillo MD Unavailable [phone] Erica Farrell APRN [employer]RISTMAS BELL RINGER Unavailable Teresita Bean [facility] Unavailable Tavia Wyatt MD Unavailable [phone] Diana [place] [facility] Unavailable [phone] Rich Barrett MD Unavailable Neil Kent MD Unavailable Roney Story DPM Unavailable Bud, Erica Guidry FAMILY AND CONSUMER SCIENCES TEACHER [employer] RINGER Unavailable Diana Desir [facility] Unavailable [phone] Jelena David Radha Unavailable Galo Burrell MD Unavailable Unavailable Livan Sharif MD Unavailable + Livan Sharif MD Unavailable + Catherine Cm MD Unavailable + Valery Veronica PA-C Unavailable [phone] Catherine Cm MD Unavailable + Johnny Murillo MD Unavailable [phone] Brea Quinn FAMILY AND CONSUMER SCIENCES TEACHER CHRISTMAS BELL RINGER Unavailable [phone] Brea Quinn FAMILY AND CONSUMER SCIENCES TEACHER [employer]RISTMAS BELL RINGER Unavailable [phone] Jose Francisco Johnson MD Unavailable Livan Sharif MD Unavailable Catherine Cm MD Unavailable + Sydnie Martinez RN Unavailable Unavailable Alfonso Renteria MD Unavailable [phone] Esha Grimm PA-C Primary Care Provider Cheng Todd PA-C Unavailable Radha Lomeli APRN [employer] RINGER Unavailable Jelena David OD Unavailable Pao Joseph RN Unavailable Unavailable Esha Grimm PA-C Unavailable [phone] Valery Veronica PA-C Unavailable Rey Tay MD Unavailable Rocky Zepeda DO Unavailable Philip Dumont MD Unavailable Meredith Carrera PA-C Unavailable Neil Kent MD Unavailable Juan Pablo Emmanuel MD Unavailable Audrey Waite PA-C Unavailable Valery Veronica PA-C Unavailable Herminia Hatch MD Unavailable Jelena David OD Unavailable Juan Pablo Emmanuel MD Unavailable [phone] Maru Man PA-C Unavailable [phone] Maru Man PA-C Unavailable Jelena David OD Unavailable Encounter Details Date Type Department Care Team (Late st Contact Info) Description 10/02/2020 [facility] [place] [facility] Medical Advice [facility] Care Coordination [facility] [address] [place] [address] Stacey Briones, [facility] Social History Tobacco Use Types Packs/Day [...] you attend chur or jehovah's witness services? More than 4 [...] Answer Date Recorded PHQ-2 Score 3 09/29/2020 [facility] of Occupat ional [facility] - Occupational Stress Questionnaire Answer Date [...] CDT Legal Sex Female 4:13 AM COMPUTER SUPPORT TECHNICIAN Gender Identity Female 03/02/2021 5:45 [...] Description 11/21/2024 7:00 AM CDT Office [facility] [address] [phone] Maru Man PA-C [address] 653190 12/20/2024 2:30 PM CDT Office Visit [facility] [address] [place] [phone] Esha Grimm PA-C [address] [place] [address] [phone] 04/16/2025 11:00 AM CDT Virtual Visit [facility] Gastro[facility]ology [facility] [address] [phone] Meredith Carrera PA-C [address] [place] [address] documented as of this encounter Visit Diagnoses Not on filedocumented in this encounter Additional Health Concerns Infection Onset Date Last Indicated Resolved Time Rule Out COVID-19 11/05/2020 11/05/2020 11/06/2020 1:09 PM CDT Rule Out COVID-19 05/11/2021 05/11/2021 05/13/2021 10:18 AM CDT Rule Out COVID-19 07/13/2021 07/13/2021 07/14/2021 3:04 PM COMPUTER SUPPORT TECHNICIAN Rule Out COVID-19 07/18/2021 07/18/2021 07/20/2021 1:56 PM COMPUTER SUPPORT TECHNICIAN COVID-19 07/18/2021 07/18/2021 08/08/2021 11:3 9 PM COMPUTER SUPPORT TECHNICIAN Rule Out COVID-19 12/18/2021 12/18/2021 12/19/2021 11:34 AM CDT Rule Out COVID-19 02/24/2022 02/24/2022 02/25/2022 1:08 PM CDT Rule Out COVID-19 04/26/2022 04/26/2022 04/26/2022 6:47 AM CDT Rule Out COVID-19 05/17/2022 05/17/2022 05/17/2022 10:20 PM COMPUTER SUPPORT TECHNICIAN Rule Out COVID-19 06/09/2022 06/09/2022 06/09/2022 9:35 AM COMPUTER SUPPORT TECHNICIAN COVID-19 06/09/2022 06/09/2022 06/30/2022 11:4 1 PM COMPUTER SUPPORT TECHNICIAN Rule Out COVID-19 11/10/2022 11/10/2022 [...] documented as of this encounter Care Teams Mirror Machine Feeder Relationship Specialty Start Date End Date Marija Edgar APRN CNP PCP - General Nurse Practitioner 04/30/20 04/14/23 Esha Grimm PA-C [address] [place] [phone] PCP - General Family Medicine 05/04/23 Lita Oseguera Personal Advocate & Liaison (PAL) 02/28/20 03/27/23 Chanelle Mccann APRN CNM [address], [facility] 200 [place], [place] 437287 Assigned OBGYN Provider 05/02/2005/09 Kyara De La Fuente, RN Specialty Asphalt [facility]uber Neurology 06/04/20 03/05/21 Marija Edgar APRN CHRISTMAS BELL RINGER Assigned PCP 06/08/20 04/29/23 Mynor Broussard MD [address] [facility] 500 [place], [place] 080115 Assigned Surgical Provider 06/01/20 11/28/21 Keisha Dotson MD [address] [place], [place] 192795 Assigned Neuroscience Provider 06/04/20 04/01/23 Stacey Briones, [facility] Lead Asphalt Dauber Primary Care - CC 08/11/2012/30 Mary Mejia Financial Resource Worker 09/02/20 10/06/20 Galo Burrell MD Assigned Heart and Vascular Provider 10/05/20 04/02/22 Cristina Wood Financial Resource Worker 10/07/20 10/14/20 Lesley Guillermo, [facility] Community Health Worker 10/23/2012/30 Meredith Bedoya Financial Resource Worker 10/23/20 11/23/20 Cristina Wood Financial Resource Worker 02/09/21 02/09/21 Diana Desir, [facility] [address] [facility] [place] [address] Pharmacist Pharmacist 04/17/21 Rain Galaviz PA-C [address] [place] [address] [place] [address] Physician Gizzard Peeler Dermatology 04/28/21 Summer Lara MD [address] [place] [address] Assigned OBGYN Provider 05/10/2105/23 Summer Lara MD [address] [place], [place] 924304 Assigned OBGYN Provider 05/31/21 Summer Lara MD [address] [place] [address] Assigned OBGYN Provider 05/24/2105/30 Tavia Wyatt MD [address] [place], [place] 326214 Dermatology 07/14/21 Johnny Murillo MD [address] [facility] [address] [place] [address] Assigned Musculoskeletal Provider 08/30/21 03/17/22 Erica Farrell APRN CHRISTMAS BELL RINGER 6405 [facility] [address] [place], [place] 151915 Nurse Practitioner Cardiovascular Disease 09/09/21 Teresita Bean [facility] [address] [place] [address] Pharmacist Pharmacist 09/24/21 09/29/21 Tavia Wyatt MD [address] [place] [address] Assigned Surgical Provider 11/29/21 05/07/22 Diana Desir, [facility] [address] [place] [address] Assigned MTM Pharmacist 01/02/22 Rich Barrett MD [address] [place], [place] 467266 Physician Ophthalmology 01/21/22 Neil Kent MD 500 [place] [address] Dermatology 02/24/22 Roney Story DPM [address] [facility] 300 [place] [address] Assigned Musculoskeletal Provider 03/20/22 08/13/22 Erica Farrell APRN CHRISTMAS BELL RINGER [address] [place] [address] Assigned Heart and Vascular Provider 04/03/22 04/16/22 Diana Desir, [facility] [address] [place] [address] Assigned MTM Pharmacist 04/07/22 Jelena David OD [address] [facility] [place] [address] Assigned Surgical Provider 05/08/22 10/08/22 Galo Burrell MD Assigned Heart and Vascular Provider 04/17/22 06/11/22 Livan Sharif MD [address] [place], [place] [address] Cardiovascular Disease 05/14/22 Livan Sharif MD [address] [place] 349725 Assigned Heart and Vascular Provider 06/12/22 07/23/22 Catherine Cm MD [address] [place] 783815 Cardiovascular Disease 07/21/22 Valery Veronica, PA-C [address] [place], [place] 806325 Physician Gizzard Peeler Dermatology 07/21/22 Catherine Cm MD [address] [place] 191265 Assigned Heart and Vascular Provider 07/24/22 11/05/22 Johnny Murilol MD [facility] [address] [address] Assigned Musculoskeletal Provider 08/14/22 10/08/22 Brea Quinn APRN CHRISTMAS BELL RINGER 500 [place] [address] Nurse Practitioner Dermatology 09/21/22 Brea Quinn APRN CHRISTMAS BELL RINGER 6401 [facility] [place] [address] Assigned Surgical Provider 10/09/22 05/01/24 [place] [address] [facility] 300 [place] [address] Assigned Musculoskeletal Provider 10/09/22 05/01/24 Livan Sharif MD 6405 [facility] [address] [place] [address] Assigned Heart and Vascular Provider 11/06/22 11/12/22 Catherine Cm MD [address] [facility] [address] [place] [address] Assigned Heart and Vascular Provider 11/13/22 05/27/23 Sydnie Martinez RN Personal Advocate & Liaison (PAL) Family Medicine 03/28/23 07/31/23 Alfonso Renteria MD 5775 [facility] 200 [place], [place] 994146 Assigned Neuroscience Provider 04/02/23 09/29/24 Cheng Todd PA-C [address] [place] [address] [id number] Assigned PCP 04/30/23 07/15/23 Radha Lomeli APRN CNP [address] [place] [address] Assigned Heart and Vascular Provider 05/28/23 Jelena David OD [address] [facility] [place] [address] MD Ophthalmology 06/15/23 Pao Joseph, VJ Personal Advocate & Liaison (PAL) Nurse 08/01/23 11/07/23 Esha Grimm PA-C [address] [place] [phone] Assigned PCP 07/16/23 Valery Veronica PA-C [address] [place] [address] 592315 Physician Gizzard Peeler Dermatology 09/19/23 Rey Tay MD [address] [place] [address] [id number] MD Gastroenterology 09/20/23 Rocky Zepeda DO [address] [place] [address] 597335 Physician Gastroenterology 09/20/23 Philip Dumont MD [address] [place] [address] 228595 Physician Ophthalmology 09/22/23 Meredith Carrera PA-C [address] [place] [address] Assigned Gastroenterology Provider 11/01/23 Neil Kent MD [address] [place] [address] MD Dermatology 11/02/23 [place] [address] [place] [address] Neurological Surgery 12/26/23 Audrey Waite PA-C [address] [place] [address] Physician Gizzard Peeler Dermatology 02/28/24 Valery Veronica PA-C 0[address]129 [address] [place] [address] Physician Gizzard Peeler Dermatology 04/10/24 Herminia Hatch MD [facility]5 [place], [place] 15079125 Assigned Rheumatology Provider 07/02/24 Jelena David OD [address] [facility] [place] [address] Ophthalmology 08/30/24 [place] [address] [place] [address] Assigned Neuroscience Provider 09/30/24 Maru Man PA-C [address] [place] [address] Physician Gizzard Peeler Dermatology 10/03/24 Maru Man PA-C [address] [place] [address] Physician Gizzard Peeler Dermatology 10/22/24 Jelena David OD [address] [place] [address] [place] KING [address] Assigned Surgical Provider 10/31/24 documented as of this encounter
--- OUTSIDE RECORDS SUMMARY | 2024-11-21 04:13 | XMS_ITS | Encounter Summary ---
Author Organization [facility] Address [address] [place] [address] Care Team Providers Care Rotary Soil Stabilizer Operator Name Role Phone Lita Oseguera Unavailable Unavailable Marija Edgar APRN OUTSIDE SALES EXECUTIVE Primary Care Provider + Chanelle Mccann MEDICAL CLAIMS SPECIALIST CNM Unavailab le Kyara De La Fuente RN Unavailable [phone] Marija Edgar APRN OUTSIDE SALES EXECUTIVE Unavailable Mynor Broussard MD Unavailable [phone] Keisha Dotson MD Unavailable [phone] Stacey Briones BOX TOE CUTTER Unavailable Galo Burrell MD Unavailable Unavailable Lesley Guillermo CHW Unavailable Meredith Bedoya Unavailable Unavailable Cristina Wood Unavailable Diana Desir [facility] Unavailable Rain Galaviz PA-C Unavailable Summer Lara MD Unavailable [phone] Summer Lara MD Unavailable [phone] Summer Lara MD Unavailable [phone] Tavia Wyatt MD Unavailable Johnny Murillo MD Unavailable [phone] Erica Farrell MEDICAL CLAIMS SPECIALIST OUTSIDE SALES EXECUTIVE Unavailable Vikas Teresita Watson [facility] Unavailable Tavia Wyatt MD Unavailable [phone] Diana Desir [facility] Unavailable Rich Barrett MD Unavailable Neil Kent MD Unavailable Roney Story DPM Unavailable Erica Farrell MEDICAL CLAIMS SPECIALIST OUTSIDE SALES EXECUTIVE Unavailable Diana Desir [facility] Unavailable Jelena David Unavailable Galo Burrell MD Unavailable Unavailable Livan Sharif MD Unavailable + Livan Sharif MD Unavailable + Catherine Cm MD Unavailable + Valery Veronica PA-C Unavailable [phone] Catherine Cm MD Unavailable + Johnny Murillo MD Unavailable [phone] Brea Quinn MEDICAL CLAIMS SPECIALIST OUTSIDE SALES EXECUTIVE Unavailable [phone] Brea Quinn MEDICAL CLAIMS SPECIALIST OUTSIDE SALES EXECUTIVE Unavailable [phone] Jose Francisco Johnson MD Unavailable Livan Sharif MD Unavailable Catherine Cm MD Unavailable + Sydnie Martinez RN Unavailable Unavailable Alfonso Renteria MD Unavailable [phone] [place], Esha M PA-C Primary Care Provider Cheng Todd PA-C Unavailable Radha Lomeli APRN OUTSIDE SALES EXECUTIVE Unavailable Jelena David OD Unavailable [phone] Pao Joseph RN Unavailable Unavailable Esha Grimm PA-C Unavailable [phone] Valery Veronica PA-C Unavailable Rey Tay [...] Team (Late st Contact Info) Description 10/24/2020 [facility] [address] [address] Marija Edgar APRN OUTSIDE SALES EXECUTIVE [address] [place], [place] [address] Social History Tobacco [...] Answer Date Recorded PHQ-2 Score 3 09/29/2020 [facility] - Occupational Stress Questionnaire Answer Date [...] Legal Sex Female 4:13 AM MANAGED CARE PROVIDER Gender Identity Female 03/02/2021 5:45 PM CDT [...] 11:44 AM CDT Replied to patient via [employer] Anthony Doe PA-C on 10/27/2020 at 11:54 AM documented in this encounter Plan of Treatment Upcoming Encounters Date Type Department Care Team (Late st Contact Info) Description 11/21/2024 7:00 AM CDT Office Visit [address] [phone] Maru Man PA-C [address] [place] [address] 12/20/2024 2:30 PM CDT Office Visit [facility] [address] [place] [address] [phone] Esha Grimm PA-C [address] [place] [address] [phone] 04/16/2025 11:00 AM CDT Virtual Visit [facility] [address] 4th [place] [address] Meredith Carrera PA-C [address] [place] [address] documented as of this encounter Visit Diagnoses Not on filedocumented in this encounter Additional Health Concerns Infection Onset Date Last Indicated Resolved Time Rule Out COVID-19 11/05/2020 11/05/2020 11/06/2020 1:09 PM CDT Rule Out COVID-19 05/11/2021 05/11/2021 05/13/2021 10:18 AM CDT Rule Out COVID-19 07/13/2021 07/13/2021 07/14/2021 3:04 PM MANAGED CARE PROVIDER Rule Out COVID-19 07/18/2021 07/18/2021 07/20/2021 1:56 PM MANAGED CARE PROVIDER COVID-19 07/18/2021 07/18/2021 08/08/2021 11:3 9 PM MANAGED CARE PROVIDER Rule Out COVID-19 12/18/2021 12/18/2021 12/19/2021 11:34 AM CDT Rule Out COVID-19 02/24/2022 02/24/2022 02/25/2022 1:08 PM CDT Rule Out COVID-19 04/26/2022 04/26/2022 04/26/2022 6:47 AM CDT Rule Out COVID-19 05/17/2022 05/17/2022 05/17/2022 10:20 PM MANAGED CARE PROVIDER Rule Out COVID-19 06/09/2022 06/09/2022 06/09/2022 9:35 AM MANAGED CARE PROVIDER COVID-19 06/09/2022 06/09/2022 06/30/2022 11:4 1 PM MANAGED CARE PROVIDER Rule Out COVID-19 11/10/2022 11/10/2022 [...] as of this encounter Care Teams Rotary Soil Stabilizer Operator Relationship Specialty Start Date End Date Marija Edgar APRN OUTSIDE SALES EXECUTIVE PCP - General Nurse Practitioner 04/30/20 04/14/23 Esha Grimm PA-C [address] [place] [phone] PCP - General Family Medicine 05/04/23 Lita Oseguera Personal Advocate & Liaison (PAL) 02/28/20 03/27/23 Chanelle Mccann APRN CNM 40892 [facility] 200 [place] [address] Assigned OBGYN Provider 05/02/2005/09 Kyara De La Fuente, RN Specialty Drilling Field Professional Neurology 06/04/20 03/05/21 Marija Edgar APRN OUTSIDE SALES EXECUTIVE Assigned PCP 06/08/20 04/29/23 Mynor Broussard MD 6[address] [facility] 500 [place], [place] 507225 Assigned Surgical Provider 06/01/20 11/28/21 Keisha Dotson MD [address]09 [place], [place] 273425 Assigned Neuroscience Provider 06/04/20 04/01/23 Stacey Briones, BOX TOE CUTTER Lead Drilling Field Professional Primary Care - CC 08/11/2012/30 Galo Burrell MD Assigned Heart and Vascular Provider 10/05/20 04/02/22 Lesley Guillermo, [facility] Community Health Worker 10/23/2012/30 Meredith Bedoya Financial Resource Worker 10/23/20 11/23/20 Cristina Wood Financial Resource Worker 02/09/21 02/09/21 Diana Desir, [facility] [address] [place] [address] Pharmacist Pharmacist 04/17/21 Rain Galaviz PA-C [address] [place] [address] [address] [place], [place] [phone] Physician Mushroom Cutter Dermatology 04/28/21 Summer Lara MD [address] [place] [address] [phone] Assigned OBGYN Provider 05/10/2105/23 Summer Lara MD [address] [place] [address] [phone] Assigned OBGYN Provider 05/31/21 2 Summer Lara MD [address] [place] [address] 900024 Assigned OBGYN Provider 05/24/2105/30 Tavia Wyatt MD [address] [place] [address] 143994 Dermatology 07/14/21 Johnny Murillo MD [address] [facility] [address] [place] [address] Assigned Musculoskeletal Provider 08/30/21 03/17/22 Erica Farrell APRN OUTSIDE SALES EXECUTIVE 6405 [facility] [address] [place], [place] 601965 Nurse Practitioner Cardiovascular Disease 09/09/21 [facility] [address] [place] [address] Pharmacist Pharmacist 09/24/21 09/29/21 Tavia Wyatt MD [address] [place], [place] 176810 Assigned Surgical Provider 11/29/21 05/07/22 [facility] [address] [place] [address] Assigned MTM Pharmacist 01/02/22 Rich Barrett MD [address] [place], [place] 246616 Physician Ophthalmology 01/21/22 Neil Kent MD 500 [place] [address] Dermatology 02/24/22 Roney Story DPM [address] [facility] 300 [place] [address] Assigned Musculoskeletal Provider 03/20/22 08/13/22 Erica Farrell APRN OUTSIDE SALES EXECUTIVE [address]00 [place] [address] Assigned Heart and Vascular Provider 04/03/22 04/16/22 Diana Desir, [facility] [address] [place] [address] Assigned MTM Pharmacist 04/07/22 [place]ena David OD [address] [place] [address] Assigned Surgical Provider 05/08/22 10/08/22 Galo Burrell MD Assigned Heart and Vascular Provider 04/17/22 06/11/22 Livan Sharif MD [address] [place] [address] Cardiovascular Disease 05/14/22 Livan Sharif MD [address] [place] 931865 Assigned Heart and Vascular Provider 06/12/22 07/23/22 Catherine Cm MD [address] [place] 6[address]5 Cardiovascular Disease 07/21/22 Valery Veronica PA-C [address] [place], [place] 134845 Physician Mushroom Cutter Dermatology 07/21/22 Catherine Cm MD [address] [place] 930265 Assigned Heart and Vascular Provider 07/24/22 11/05/22 Johnny Murillo MD [address] [address] Assigned Musculoskeletal Provider 08/14/22 10/08/22 Brea Quinn APRN OUTSIDE SALES EXECUTIVE 500 [place] [address] Nurse Practitioner Dermatology 09/21/22 Brea Quinn APRN OUTSIDE SALES EXECUTIVE [address] [place] [address] Assigned Surgical Provider 10/09/22 05/01/24 [place] [address] [facility] [address] [place] [address] Assigned Musculoskeletal Provider 10/09/22 05/01/24 Livan Sharif MD [address]405 [facility] [address] [place] [address] Assigned Heart and Vascular Provider 11/06/22 11/12/22 Catherine Cm MD 6[address] [facility] [address] [place] [address] Assigned Heart and Vascular Provider 11/13/22 05/27/23 Sydnie Martinez, VJ Personal Advocate & Liaison (PAL) Family Medicine 03/28/23 07/31/23 Alfonso Renteria MD 5775 [facility] 200 [place], [place] 294576 Assigned Neuroscience Provider 04/02/23 09/29/24 Cheng Todd PA-C [address] [place] [address] Assigned PCP 04/30/23 07/15/23 Radha Lomeli APRN OUTSIDE SALES EXECUTIVE 6405 [facility] [address] [place] [address] Assigned Heart and Vascular Provider 05/28/23 Jelena David OD [address] [place] [address] MD Ophthalmology 06/15/23 Pao Joseph, VJ Personal Advocate & Liaison (PAL) Nurse 08/01/23 11/07/23 Ehsa Grimm PA-C [address] [place] [phone] Assigned PCP 07/16/23 Valery Veronica PA-C [address] [place] [address] 140775 Physician Mushroom Cutter Dermatology 09/19/23 Rey Tay MD [address] [place] [address] 462805 Gastroenterology 09/20/23 Rocky Zepeda DO [address] [place] [address] 271385 Physician Gastroenterology 09/20/23 Philip Dumont MD [address] [place] [address] 081065 Physician Ophthalmology 09/22/23 Meredith Carrera PA-C [address]09 [place] [address] Assigned Gastroenterology Provider 11/01/23 Neil Kent MD [address] 280[address] Dermatology 11/02/23 [place] [address] [facility] [place], [place] [phone] Neurological Surgery 12/26/23 Audrey Waite PA-C [address] [place] [address] Physician Mushroom Cutter Dermatology 02/28/24 Valery Veronica PA-C [address] [place] [address] 810099 Physician Mushroom Cutter Dermatology 04/10/24 Herminia Hatch MD [facility]5 [place], [place] [phone] Assigned Rheumatology Provider 07/02/24 [place] [address] [place] [address] [place] [address] Ophthalmology 08/30/24 [place] [address] [place] [address] Assigned Neuroscience Provider 09/30/24 Maru Man PA-C [address] [place] [address] Physician Mushroom Cutter Dermatology 10/03/24 Maru Man PA-C [address] [place] [address] Physician Mushroom Cutter Dermatology 10/22/24 Jelena David OD [address] [place] [address] [place] [address] Assigned Surgical Provider 10/31/24 documented as of this encounter
--- OUTSIDE RECORDS SUMMARY | 2024-11-21 04:13 | XMS_ITS | Encounter Summary ---
Author Organization [facility] Address [address] [place] [address] Care Team Providers Care Stoker Erector Name Role Phone Diana Desir Stanislav [facility] Unavailable Rain Galaviz PA-C Unavailable Tavia Wyatt MD Unavailable Erica Farrell APRN CUSTOMS EXAMINER Unavailable Rich Barrett MD Unavailable [phone] Neil Kent MD Unavailable ThangKendrickDiana Stanislav [facility] Unavailable [phone] Livan Sharif MD Unavailable Catherine Cm MD Unavailable + Valery Veronica-C Unavailable Brea Quinn CAUSTICS LOADER CUSTOMS EXAMINER Unavailable Esha Grimm PA-C Primary Care Provider Radha Lomeli APRN CUSTOMS EXAMINER Unavailable Jelena David OD Unavailable Esha Grimm PA-C Unavailable [phone] Valery Veronica PA-C Unavailable [phone] Rey Tay MD Unavailable Duane Rockyanne [facility] Unavailable Philip Dumont MD Unavailable [phone] LoreMeredith mayers PA-C Unavailable [phone] Neil Kent MD Unavailable Juan Pablo Emmanuel MD Unavailable [phone] Audrey Waite PA-C Unavailable [phone] Valery Veronica PA-C Unavailable [phone] Herminia Hatch MD Unavailable Jelena David OD Unavailable [phone] Juan Pablo Emmanuel MD Unavailable [phone] Maru Man-C Unavailable [phone] Maru Man-C Unavailable [phone] Jelena David OD Unavailable Encounter Details Date Type Department Care Team (Latest Contact Info) Description 11/20/2024 Travel Social History Tobacco Use Types Packs/Day [...] Answer Date Recorded PHQ-2 Score 1 10/24/2024 [facility] [...] exercise at this level? 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 [address] [place] [phone] Esha Grimm PA-C [address] [place] [phone] 04/16/2025 11:00 AM CDT Virtual Visit [facility] [place] [address] [facility] [address] 4th [place] [phone] Meredith Carrera PA-C [address] [place] [place] [address] documented as of this encounter Visit Diagnoses Not on filedocumented in this encounter Additional Health Concerns Infection Onset Date Last Indicated Resolved Time Rule Out COVID-19 11/20/2024 11/20/2024 Assessment Noted Time PHQ-9 Depression Total Score: 5 10/25/19 25 10:38 AM CDT documented as of this encounter Care Teams Stoker Erector Relationship Specialty Start Date End Date Esha Grimm PA-C [address] [place] [phone] PCP - General Family Medicine 05/04/23 Diana Desir, [facility]3 [place] [address] Pharmacist Pharmacist 04/17/21 Rain Galaviz PA-C [address] [place] [address] [address] [place] [address] Physician Solutions Executive Cloud Sales Dermatology 04/28/21 Tavia Wyatt MD [address] [place] [address] [address] [place] [address] Dermatology 07/14/21 Erica Farrell APRN CUSTOMS EXAMINER [address] [place] [address] Nurse Practitioner Cardiovascular Disease 09/09/21 Rich Barrett MD [address] [place] [address] Physician Ophthalmology 01/21/22 Neil Kent MD 500 [place] [address] Dermatology 02/24/22 [facility] [address] [place] [address] Assigned MTM Pharmacist 04/07/22 Livan Sharif MD [address] [address] Cardiovascular Disease 05/14/22 Catherine Cm MD [address] [address] Cardiovascular Disease 07/21/22 Valery Veronica, PA-C [address] [place] [address] [employer] Executive Cloud Sales Dermatology 07/21/22 Brea Quinn APRN CUSTOMS EXAMINER [address] [place] [address] Nurse Practitioner Dermatology 09/21/22 Radha Lomeli APRN CUSTOMS EXAMINER [address] [place], [place] [address] Assigned Heart and Vascular Provider 05/28/23 Jelena David OD 3305 [facility] [place] [address] MD Ophthalmology 06/15/23 Esha Grimm PA-C [address] [place] [phone] Assigned PCP 07/16/23 Valery Veronica PA-C [address] [place] [address] 695755 [employer] Executive Cloud Sales Dermatology 09/19/23 Rey Tay MD [address] [place] [place] [address] 622385 MD Gastroenterology 09/20/23 Rocky Zepeda DO [address] [place] [place] [address] 769775 Physician Gastroenterology 09/20/23 Philip Dumont MD [address] [place] [address] 925425 Physician Ophthalmology 09/22/23 Meredith Carrera PA-C [address] [place] [place] [address] 419365 Assigned Gastroenterology Provider 11/01/23 Neil Kent MD [address] [place] [address] Dermatology 11/02/23 [place] [address] [place] [address] Neurological Surgery 12/26/23 Audrey Waite PA-C 500 [place] [address] [employer] Executive Cloud Sales Dermatology 02/28/24 Valery Veronica PA-C [address] [place] [address] [employer]ician Solutions Executive Cloud Sales Dermatology 04/10/24 Herminia Hatch MD [address] [place] [address] Assigned Rheumatology Provider 07/02/24 Jelena David OD [address] [place] [address] [place] [address] Ophthalmology 08/30/24 [place] [address] [place] [address] Assigned Neuroscience Provider 09/30/24 Maru Man PA-C [address] [place] [address] [employer] Sales Dermatology 10/03/24 Maru Man PA-C [address] [place] [address] [employer] Executive Cloud Sales Dermatology 10/22/24 Jelena David OD [address] [place] [address] [place] [address] Assigned Surgical Provider 10/31/24 documented as of this encounter
--- OUTSIDE RECORDS SUMMARY | 2024-11-21 04:13 | XMS_ITS | Encounter Summary ---
Author Organization [facility] Address [address] [place] [address] Care Team Providers Care Greenhouse Florist Name Role Phone Diana Desir Stanislav [facility] Unavailable Rain Galaviz PA-C Unavailable Tavia Wyatt MD Unavailable Erica Farrell APRN ELECTRONIC GAMING DEVICE SUPERVISOR Unavailable Rich Barrett MD Unavailable [phone] Neil Kent MD Unavailable ThangKendrickDiana Stanislav [facility] Unavailable [phone] Livan Sharif MD Unavailable Catherine Cm MD Unavailable + Valery Veronica-C Unavailable [phone] Brea Quinn MILLINERY BLOCKER ELECTRONIC GAMING DEVICE SUPERVISOR Unavailable Esha Grimm PA-C Primary Care Provider Radha Lomeli APRN ELECTRONIC GAMING DEVICE SUPERVISOR Unavailable Jelena David OD Unavailable Esah Grimm PA-C Unavailable [phone] Valery Veronica PA-C Unavailable Rey Tay MD Unavailable DuaneRocky Unavailable Philip Dumont MD Unavailable [phone] PinoMeredith paez PA-C Unavailable [phone] Neil Kent MD Unavailable Juan Pablo Emmanuel MD Unavailable Audrey Waite PA-C Unavailable [phone] Valery Veronica PA-C Unavailable Herminia Hatch MD Unavailable Jelena David OD Unavailable Juan Pablo Emmanuel MD Unavailable [phone] Maru Man-C Unavailable [phone] Maru Man-C Unavailable [phone] Jelena David OD Unavailable Reason for Visit * Reason Onset Date Comments General 11/21/2024 Encounter Details Date Type Department Care Team (Late st Contact Info) Description 11/21/2024 Telephone [facility] Nurse Advisors [facility] [place] [address] Celine Vogel RN General Social History Tobacco Use Types Packs/Day Years [...] Answer Date Recorded PHQ-2 Score 1 10/24/2024 [facility] of Occupat ional [facility] - Occupational Stress Questionnaire Answer [...] exercise at this level? 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 Patient states that she had already spoken with someone at the [facility] and She states that she had asked them to transfer her to someone so she could speak with someone as she was traveling with her 4 year old daughter. Patient reported to telegraphic typewriter mechanic that she arrived safely to the hospital at 0405. documented in this encounter Plan of Treatment Upcoming Encounters Date Type Department Care Team (Late st Contact Info) Description 11/21/2024 7:00 AM CDT Office Visit [facility] [address] [phone] Maru Man PA-C [address] [address] 12/20/2024 2:30 PM CDT Office Visit [facility] [address] [place] [address] Esha Grimm PA-C [address] [place] [address] 04/16/2025 11:00 AM CDT Virtual Visit [facility] Gastroenterology Clinic [address] [phone] Meredith Carrera PA-C [address] [place] [address] documented as of this encounter Visit Diagnoses Not on filedocumented in this encounter Additional Health Concerns Infection Onset Date Last Indicated Resolved Time Rule Out COVID-19 11/20/2024 11/20/2024 Assessment Noted Time PHQ-9 Depression Total Score: 5 10/25/19 25 10:38 AM CDT documented as of this encounter Care Teams Greenhouse Florist Relationship Specialty Start Date End Date Esha Grimm PA-C [address] [place] [address] PCP - General Family Medicine 05/04/23 Diana Desir, [facility] [address] [place] [address] Pharmacist Pharmacist 04/17/21 Rain Galaviz PA-C [address] [place] [address] [address] [place] [address] Physician Vehicle Safety Inspector Dermatology 04/28/21 Tavia Wyatt MD [address] [place] [address] [address] [place] [address] Dermatology 07/14/21 Erica Farrell APRN ELECTRONIC GAMING DEVICE SUPERVISOR [address] [place] [address] Nurse Practitioner Cardiovascular Disease 09/09/21 Rich Barrett MD [address] [place] [address] Physician Ophthalmology 01/21/22 Neil Kent MD 500 [place], [place] 9[address]25 Dermatology 02/24/22 Diana Desir, [facility] [address] [place], [place] 797916 Assigned MTM Pharmacist 04/07/22 Livan Sharif MD [address] [place] [address] Cardiovascular Disease 05/14/22 Catherine Cm MD [address] [place] [address] Cardiovascular Disease 07/21/22 Valery Veronica PA-C [address] [place] [address] Physician Vehicle Safety Inspector Dermatology 07/21/22 Brea Quinn APRN ELECTRONIC GAMING DEVICE SUPERVISOR [address] [place] [address] Nurse Practitioner Dermatology 09/21/22 Radha Lomeli APRN ELECTRONIC GAMING DEVICE SUPERVISOR [address] [facility] [address] [place] [address] Assigned Heart and Vascular Provider 05/28/23 Jelena David OD [address] [facility] [place] [address] MD Ophthalmology 06/15/23 Esha Grimm PA-C [address] [place] [address] Assigned PCP 07/16/23 Valery Veronica PA-C [address] [place] [address] Physician Vehicle Safety Inspector Dermatology 09/19/23 Rey Tay MD [address] [place] [address] Gastroenterology 09/20/23 Rocky Zepeda DO [address] [place] [address] 126665 Physician Gastroenterology 09/20/23 Philip Dumont MD [address] [place] [address] 674505 Physician Ophthalmology 09/22/23 Meredith Carrera PA-C [address]09 [place], [place] 650615 Assigned Gastroenterology Provider 11/01/23 Neil Kent MD [address] [address] Dermatology 11/02/23 [place] [address] [facility] [address] [place] [address] [id number] Neurological Surgery 12/26/23 Audrey Waite PA-C [address] [place] [address] Physician Vehicle Safety Inspector Dermatology 02/28/24 Valery Veronica PA-C 093695 [address], [place] 041969 Physician Vehicle Safety Inspector Dermatology 04/10/24 Herminia Hatch MD [address] [place] [address] [id number] Assigned Rheumatology Provider 07/02/24 Jelena David OD [address] [place] [address] [place] [address] Ophthalmology 08/30/24 [place] [address] [facility] [address] [place] [address] Assigned Neuroscience Provider 09/30/24 Maru Man PA-C [address] [place] [address] Physician Vehicle Safety Inspector Dermatology 10/03/24 Maru Man PA-C [address] [place] [address] Physician Vehicle Safety Inspector Dermatology 10/22/24 Jelena David OD [address] [place] [address] [place] [address] Assigned Surgical Provider 10/31/24 documented as of this encounter
--- OUTSIDE RECORDS SUMMARY | 2024-11-21 04:13 | XMS_ITS | Encounter Summary ---
Author Organization [facility] Address [address] [place] [address] Care Team Providers Care Stringer Machine Tender Name Role Phone Diana Desir Stanislav [facility] Unavailable Rain Galaviz PA-C Unavailable [phone] Tavia Wyatt MD Unavailable Erica Farrell APRN CLINICAL DATA ASSOCIATE Unavailable Rich Barrett MD Unavailable [phone] Neil Kent MD Unavailable ThangKendrickDiana Stanislav [facility] Unavailable [phone] Livan Sharif MD Unavailable Catherine Cm MD Unavailable + Valery Veronica-C Unavailable Brea Quinn FLOUR BLENDER HELPER CLINICAL DATA ASSOCIATE Unavailable Esha Grimm PA-C Primary Care Provider Radha Lomeli APRN CLINICAL DATA ASSOCIATE Unavailable Jelena David OD Unavailable Esha Grimm PA-C Unavailable Valery Veronica PA-C Unavailable [phone] Rey Tay MD Unavailable Rocky Zepeda DO Unavailable Philip Dumont MD Unavailable DebiMeredith PA-C Unavailable [phone] Neil Kent MD Unavailable Juan Pablo Emmanuel MD Unavailable Audrey Waite PA-C Unavailable [phone] Valery Veronica PA-C Unavailable [phone] Herminia Hatch MD Unavailable Jelena David OD Unavailable Juan Pablo Emmanuel MD Unavailable [phone] Maru Man PA-C Unavailable Maru Man PA-C Unavailable Jelena David OD Unavailable Reason for Referral * Diagnostic Imaging XR (Routine) - Pending Review Specialty Diagnoses / Procedures Referred By Qian mayers Referred To Contact Radiology. Diagnoses Acute cough Procedures XR Chest 2 Views Estephania Flannery NP [address] [place] [address] Phone: tel: fax: Referral ID Status Reason Start Date Expiration Date V isits Requested Visits Authorized [id number] Pending Review 11/20/2024 11/20/2025 1 1 Reason [...] Description 11/20/2024 11:15 AM CDT Office Visit [facility] [address] [place] [address] Estephania Flannery NP [address] [place] [address] Yeast infection of the vagina (Primary Dx); [...] Answer Date Recorded PHQ-2 Score 1 10/24/2024 [facility] [place] of Occupat ional Health - Occupational [...] exercise at this level? 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 Please also have daily probiotic and mongolian yogurtto help your symptoms. A yeast infection [...] pharmacy. Please also have daily probiotic and mongolian yogurtto help your symptoms. A yeast infection [...] Narrative EXAM: XR CHEST 2 VIEWS LOCATION: [facility] DATE: 11/20/2024 INDICATION: Acute [...] Negative Ketones Urine Negative Negative mg/dL Specific [place] Urine 1.015 1.003 - 1.035 Blood Urine [...] Procedure Abnormality Status --------- ------ WBC and Differential[[id number]] Final result Please view results for these [...] Description 11/21/2024 7:00 AM CDT Office Visit [facility] [address] [phone] Maru Man PA-C [address] [address] 12/20/2024 2:30 PM CDT Office Visit [facility] [id number] [place] [address] Esha Grimm PA-C [id number] [place] [address] 04/16/2025 11:00 AM CDT Virtual Visit [facility] Gastroenterology Clinic [address] [place] [address] Meredith Carrera PA-C [address] [place] [address] [phone] Pending Results Name Type Priority Associated Diagnoses Date /Time COVID-19 Virus (Coronavirus) by PCR Nose Lab Routine Fever, unspecified 11/20/2024 10:45 AM CDT NEISSERIA GONORRHOEA PCR Microbiology Routine Screening examination for STI 11/20/2024 11:45 AM CDT CHLAMYDIA TRACHOMATIS PCR Microbiology Routine Screening examination for STI 11/20/2024 11:45 AM CDT TSH with free T4 reflex Lab Routine [...] Type Priority Associated Diagnoses Orde r Schedule NEISSERIA GONORRHOEA PCR Microbiology Routine Screening examination for STI Expected: 11/20/2024 (Approximate), Expires: 11/20/2025 CHLAMYDIA TRACHOMATIS PCR Microbiology Routine Screening examination for STI Expected: 11/20/2024 (Approximate), Expires: 11/20/2025 documented as of this encounter Procedures Procedure Name Priority Date/Time Associated Diagnosis Comments HIV ANTIGEN ANTIBODY COMBO Routine 11/20/2024 3:15 PM CDT Screening examination for STI UA MICROSCOPIC WITH REFLEX TO CULTURE Routine 11/20/2024 11:45 AM CDT Dysuria ROUTINE UA WITH MICROSCOPIC REFLEX TO CULTURE Routine 11/20/2024 11:45 AM CDT Dysuria WET PREPARATION Routine 11/20/2024 11:45 AM CDT Dysuria WBC AND DIFFERENTIAL Routine 11/20/2024 11:41 AM CDT Fever, unspecified Acute cough WBC AND DIFFERENTIAL Routine 11/20/2024 11:41 AM CDT Fever, unspecified Acute cough TREPONEMA ABS W REFLEX TO RPR AND TITER Routine 11/20/2024 11:40 AM CDT Screening examination for STI INFLUENZA A/B ANTIGEN Routine 11/20/2024 10:45 AM CDT Fever, unspecified documented in this encounter Results * HIV Antigen Antibody Combo (11/20/2024 [...] PM CDT 11/20/2024 3:15 PM CDT Estephania Flnanery PRINCIPAL ANDROID DEVELOPER LAB - BLOOD ORDERABLES Shira l Result U[facility] LABORATORY [facility] [place] Core Lab 500 [facility], Room [address] [place] [phone] * (ABNORMAL) UA Microscopic with [...] - URINE ORDERABLES Shira l Result LABORATORY [facility] [place] [facility] [address] [facility] Lab (no room number, 1st floor of clinic) [place] [address], [facility] [place] * UA with [...] mg/dL 11/20/2024 11:47 AM CDT LABORATORY Specific [place] Urine 1.015 1.003 - 1.035 11/20/2024 11:47 [...] CDT us Estephania Flannery NP LAB - URINE ORDERABLES Shira snyder Result LABORATORY [facility] - [place] [facility] [address] [facility] Lab (no room number, 1st floor of clinic) [place] [address], [facility] [place] * (ABNORMAL) Wet prep - Clinic Collect [...] LES Final Result LV LABORATORY [facility] - [place] [facility] [address] [facility] Lab (no room number, 1st floor of clinic) [place] [address], [facility] [place] * WBC and Differential (11/20/2024 11:41 AM CDT) [facility] Signature WBC Count 5.2 4.0 - 11.0 10e3/uL [...] 11/20/2024 11:41 AM CDT us Estephania Flannery PRINCIPAL ANDROID DEVELOPER LAB - BLOOD ORDERABLES Shira l Result LV LABORATORY [facility] [address] [facility] Lab (no room number, 1st floor of clinic) [place] [address] * Treponema Abs w Reflex to RPR and Titer (11/20/2024 11:40 AM CDT) Treponema Antibody Total Nonreactive Nonreactive 11/20/2024 9:56 PM CDT SPECIALTY LABS Blood BLOOD SPECIMEN / Unknown Venipuncture / Unknown 11/20/2024 11:40 AM CDT 11/20/2024 11:40 AM CDT Estephania Flannery NP LAB - BLOOD ORDERABLES Shira l Result Performing Organization Address City/[facility]/ZIP Co de Phone Number UM SPECIALTY CORE/PROT/ENDO UM Specialty Core/Prot/Endo [address] [facility], Room [address] SPECIALTY LABS Specialty Lab 500 [facility], [address] [phone] [place] [address] * XR Chest 2 Views (11/20/2024 11:20 AM CDT) Anatomical Region Laterality Modality Chest Computed Radiogr aphy 11/20/2024 11:2 0 AM CDT Impressions 11/20/2024 11:22 AM CDT IMPRESSION: Negative chest. Narrative 11/20/2024 11:22 AM CDT EXAM: XR CHEST 2 VIEWS LOCATION: [facility] DATE: 11/20/2024 INDICATION: Acute cough COMPARISON: 10/28/2024 Procedure Note Robert Ramos MD - 11/20/2024 EXAM: XR CHEST 2 VIEWS LOCATION: [facility] DATE: 11/20/2024 INDICATION: Acute cough COMPARISON: 10/28/2024 IMPRESSION: Negative chest. us Estephania Flannery PRINCIPAL ANDROID DEVELOPER IMG DIAGNOSTIC IMAGING ORDE RABLES Final Result * Influenza A & B [...] MICRO GENERAL ORD ERABLES Final Result LABORATORY [facility] - [facility] [address] [facility] (no room number, 1st floor of clinic) [place] [address], [facility] [place] documented in this [...] documented as of this encounter Care Teams Stringer Machine Tender Relationship Specialty Start Date End Date Esha Grimm PA-C [address] [place] [phone] PCP - General Family Medicine 05/04/23 Diana Desir [facility] [address] [place] [address] Pharmacist Pharmacist 04/17/21 Rain Galaviz PA-C [address] [place] [address] [address] [place] [address] Physician Account Executive Agribusiness Dermatology 04/28/21 Tavia Wyatt MD [address] [place] [address] [address] [place] [address] Dermatology 07/14/21 Erica Farrell APRN CLINICAL DATA ASSOCIATE [address] [place], [place] [address] Nurse Practitioner Cardiovascular Disease 09/09/21 Rich Barrett MD [address] [place], [place] [address] Physician Ophthalmology 01/21/22 Neil Kent MD [address] [place] [address] 198025 Dermatology 02/24/22 [facility] [address] [place] [address] Assigned [facility] Pharmacist 04/07/22 Livan Sharif MD [address] [place], [place] [address] Cardiovascular Disease 05/14/22 Catherine Cm MD [address] [place], [place] 6[address] Cardiovascular Disease 07/21/22 Valery Veronica, PA-C [address] [place] [address] Physician Account Executive Agribusiness Dermatology 07/21/22 Brea Quinn APRN CLINICAL DATA ASSOCIATE [address] [place] [address] Nurse Practitioner Dermatology 09/21/22 Radha Lomeli APRN CLINICAL DATA ASSOCIATE [address] [place], [place] [address] [place] [address] Assigned Heart and Vascular Provider 05/28/23 [place] [address] [place] [address] [place] [address] MD Ophthalmology 06/15/23 Esha Grimm PA-C [address] [place] [address] Assigned PCP 07/16/23 Valery Veronica PA-C [address] [place] [address] Physician Account Executive Agribusiness Dermatology 09/19/23 Rey Tay MD [address] [place] [address] Gastroenterology 09/20/23 Rocky Zepeda DO [address] [place] [address] 661585 Physician Gastroenterology 09/20/23 Philip Dumont MD [address] [place] [address] 636095 Physician Ophthalmology 09/22/23 Meredith Carrera PA-C [address]09 [place] [address] Assigned Gastroenterology Provider 11/01/23 Neil Kent MD [address] [place] [address] Dermatology 11/02/23 [place] [address] [place], [place] 1765[address] Neurological Surgery 12/26/23 Audrey Waite PA-C 500 [place] [address] Physician Account Executive Agribusiness Dermatology 02/28/24 Valery Veronica PA-C 931185 [address], [place] 918189 Physician Account Executive Agribusiness Dermatology 04/10/24 Herminia Hatch MD [facility] [place], [place] [phone] Assigned Rheumatology Provider 07/02/24 Jelena David OD [address] [facility] [place] [address] Ophthalmology 08/30/24 [place] [address] [place] [address] Assigned Neuroscience Provider 09/30/24 Maru Man PA-C [address] [place] [address] Physician Account Executive Agribusiness Dermatology 10/03/24 Maru Man PA-C [address] [place] [address] Physician Account Executive Agribusiness Dermatology 10/22/24 Jelena David OD [address] [place] [address] [place] [address] Assigned Surgical Provider 10/31/24 documented as of this encounter
--- OUTSIDE RECORDS SUMMARY | 2024-11-21 04:13 | XMS_ITS | Encounter Summary ---
Author Organization [facility] Address [address] [place] [address] Care Team Providers Care Broadcasting Equipment Mechanic Name Role Phone Lita Oseguera Unavailable Unavailable Marija Edgar APRN HEAD OF MEASUREMENT & INSIGHTS Primary Care Provider + Chanelle Mccann APRN CNM Unavailab le Kyara De La Fuente RN Unavailable [phone] Marija Edgar APRN HEAD OF MEASUREMENT & INSIGHTS Unavailable [phone] Mynor Broussard MD Unavailable [phone] Keisha Dotson MD Unavailable [phone] Stacey Briones CLERICAL COORDINATOR Unavailable Lesley Guillermo CHW Unavailable Mary Mejia Unavailable Unavailable Lita Oseguera Unavailable Unavailable Galo Burrell MD Unavailable Unavailable Cristina Wood Unavailable Lesley Guillermo CHW Unavailable Meredith Bedoya Unavailable Unavailable Cristina Wood Unavailable Diana Desir [facility] Unavailable Rain Galaviz PA-C Unavailable Summer Lara MD Unavailable [phone] Summer Lara MD Unavailable [phone] Summer Lara MD Unavailable [phone] Tavia Wyatt MD Unavailable [phone] Johnny Murillo MD Unavailable [phone] Erica Farrell SENIOR DIRECTOR FINANCE HEAD OF MEASUREMENT & INSIGHTS Unavailable Vikas Teresitakaren Watson [facility] Unavailable Tavia Wyatt MD Unavailable [phone] Diana Desir [facility] Unavailable [phone] Rich Barrett MD Unavailable Neil Kent MD Unavailable Roney StoryM Unavailable Erica Farrell SENIOR DIRECTOR FINANCE HEAD OF MEASUREMENT & INSIGHTS Unavailable Diana Desir [facility] Unavailable [phone] Jelena David OD Unavailable Galo Burrell MD Unavailable Unavailable Livan Sharif MD Unavailable Livan Sharif MD Unavailable Catherine Cm MD Unavailable + Valery Veronica PA-C Unavailable [phone] Catherine Cm MD Unavailable + Johnny Murillo MD Unavailable +[phone] Brea Quinn APRN HEAD OF MEASUREMENT & INSIGHTS Unavailable [phone] Brea Quinn APRN HEAD OF MEASUREMENT & INSIGHTS Unavailable [phone] Jose Francisco Johnson MD Unavailable Livan Sharif MD Unavailable + Catherine Cm MD Unavailable + Sydnie Martinez RN Unavailable Unavailable Alfonso Renteria MD Unavailable [phone] Esha Grimm PA-C Primary Care Provider Perez Chengjc Fish PA-C Unavailable Armani Radha Stovall ARLENE GRANADOS Unavailable Jelena David OD Unavailable Pao Joseph RN Unavailable Unavailable Esha Grimm PA-C Unavailable [phone] Valery Veronica PA-C Unavailable Rey Tay MD Unavailable Rocky Zepeda DO Unavailable Philip Dumont MD Unavailable Meredith Carrera PA-C Unavailable [phone] Neil Kent MD Unavailable Juan Pablo Emmanuel MD Unavailable Audrey Waite PA-C Unavailable aVlery Veronica PA-C Unavailable Herminia Hatch MD Unavailable Jelena David OD Unavailable [phone] Juan Pablo Emmanuel MD Unavailable Maru Man PA-C Unavailable Maru Man PA-C Unavailable [phone] Jelena David OD Unavailable Reason for Visit * Reason Onset Date Comments MyChart Communication 09/08/2020 Encounter Details Date Type Department Care Team (Latest Contact Info) Description 09/08/2020 MyC Medical Advice [address] [address] Marija Edgar APRN [facility] [address] [facility] [place] [address] MyChart Communication Social History Tobacco Use [...] Answer Date Recorded PHQ-2 Score 0 08/12/2020 [facility]at [facility] [...] PM CDT Legal Sex Female 4:13 AM AGENCY RECRUITER Gender Identity Female 03/02/2021 5:45 PM CDT Sexual Orientation Straight 02/28/2020 12 :51 AM CDT COVID-19 Exposure Response Date Recorded In the last month, have you been in contact with someone who was confirmed or suspected to have Coronavirus / COVID-19? No / Unsure 09/09/2020 10:09 AM AGENCY RECRUITER documented as of this encounter Miscellaneous Notes * Telephone Encounter - Natasha Luis RN - 09/09/2020 7:29 AM CST See [employer] message, cardio ordered, pt cannot view echo [...] RN, BSN Message handled by CLINIC NURSE.' CY RECRUITER * Telephone Encounter - Ever Cardozo MA - 09/09/2020 7:08 AM CST Triage, could you please see if results are posted yet in regards to patients ultrasound. Ever Cardozo [employer] CY RECRUITER documented in this encounter Plan of Treatment Upcoming Encounters Date Type Department Care Team (Late st Contact Info) Description 11/21/2024 7:00 AM CDT Office Visit [facility] [address] [phone] Maru Man PA-C [address] [place] [address] 12/20/2024 2:30 PM CDT Office Visit [facility] [address] [place] [address] Esha Grimm PA-C [address] [place] [address] 04/16/2025 11:00 AM CDT Virtual Visit [facility] [address] 4th [place] [phone] Meredith Carrera PA-C [address] [place] [address] documented as of this encounter Visit Diagnoses Not on filedocumented in this encounter Additional Health Concerns Infection Onset Date Last Indicated Resolved Time Rule Out COVID-19 09/24/2020 09/24/2020 09/24/2020 9:24 AM CDT Rule Out COVID-19 11/05/2020 11/05/2020 11/06/2020 1:09 PM CDT Rule Out COVID-19 05/11/2021 05/11/2021 05/13/2021 10:18 AM CDT Rule Out COVID-19 07/13/2021 07/13/2021 07/14/2021 3:04 PM AGENCY RECRUITER Rule Out COVID-19 07/18/2021 07/18/2021 07/20/2021 1:56 PM AGENCY RECRUITER COVID-19 07/18/2021 07/18/2021 08/08/2021 11:3 9 PM AGENCY RECRUITER Rule Out COVID-19 12/18/2021 12/18/2021 12/19/2021 11:34 AM CDT Rule Out COVID-19 02/24/2022 02/24/2022 02/25/2022 1:08 PM CDT Rule Out COVID-19 04/26/2022 04/26/2022 04/26/2022 6:47 AM CDT Rule Out COVID-19 05/17/2022 05/17/2022 05/17/2022 10:20 PM AGENCY RECRUITER Rule Out COVID-19 06/09/2022 06/09/2022 06/09/2022 9:35 AM AGENCY RECRUITER COVID-19 06/09/2022 06/09/2022 06/30/2022 11:4 1 PM AGENCY RECRUITER Rule Out COVID-19 11/10/2022 11/10/2022 11/11/2022 12:17 PM CDT Rule Out COVID-19 03/07/2023 03/07/2023 03/07/2023 1:20 PM CDT Rule Out COVID-19 12/26/2023 12/26/2023 12/26/2023 9:50 AM CDT Rule Out COVID-19 04/09/2024 04/09/2024 04/10/2024 6:48 PM CDT Rule Out COVID-19 10/04/2024 10/04/2024 10/05/2024 9:42 AM CDT Rule Out COVID-19 11/20/2024 11/20/2024 Assessment Noted Time PHQ-9 Depression Total Score: 9 06/25/20 20 7:04 AM AGENCY RECRUITER documented as of this encounter Care Teams Broadcasting Equipment Mechanic Relationship Specialty Start Date End Date Marija Edgar APRN HEAD OF MEASUREMENT & INSIGHTS PCP - General Nurse Practitioner 04/30/20 04/14/23 Esha Grimm PAUcheC [address] [place] [phone] PCP - General Family Medicine 05/04/23 Lita Oseguera Personal Advocate & Liaison (PAL) 02/28/20 03/27/23 Chanelle Mccann APRN [facility] [address] [address] Assigned OBGYN Provider 05/02/2005/09 Kyara De La Fuente, RN Specialty Site Acquisition Specialist Neurology 06/04/20 03/05/21 Marija Edgar APRN CNP Assigned PCP 06/08/20 04/29/23 Mynor Broussard MD [address] [phone] Assigned Surgical Provider 06/01/20 11/28/21 Keisha Dotson MD 909 [place], [place] 6[address] Assigned Neuroscience Provider 06/04/20 04/01/23 Stacey Briones, [facility] Lead Site Acquisition Specialist Primary Care - CC 08/11/2012/30 Lesley Guillermo, [facility] Community Health Worker 08/11/2010/01 Mary Mejia [...] 02/09/21 Diana Desir, [facility]3 [place] [address] Pharmacist Pharmacist 04/17/21 Rain Galaviz PA-C [address] [facility] [place] [address] Physician Still Operator Dermatology 04/28/21 Summer Lara MD [address] [place] [address] [place] [address] Assigned OBGYN Provider 05/10/2105/23 Summer Lara MD [address] [facility] [place] [address] Assigned OBGYN Provider 05/31/21 Summer Lara MD [address] [place] [address] [place] [address] Assigned OBGYN Provider 05/24/2105/30 Tavia Wyatt MD [address] [facility] [place] [address] Dermatology 07/14/21 Johnny Murillo MD [address] [place] [address] Assigned Musculoskeletal Provider 08/30/21 03/17/22 Erica Farrell APRN HEAD OF MEASUREMENT & INSIGHTS [address] [facility] [address] [place] [address] Nurse Practitioner Cardiovascular Disease 09/09/21 Teresita Bean, [facility] [address] [place] [address] Pharmacist Pharmacist 09/24/21 09/29/21 Tavia Wyatt MD [address] [place] [address] Assigned Surgical Provider 11/29/21 05/07/22 Diana Desir, [facility] [address] [place] [address] Assigned MTM Pharmacist 01/02/22 Rich Barrett MD [facility] [place] [address] Physician Ophthalmology 01/21/22 Neil Kent MD 500 [place], [place] 052245 Dermatology 02/24/22 Roney Story DPM [address] [facility] [address] [place] [address] Assigned Musculoskeletal Provider 03/20/22 08/13/22 Erica Farrell APRN HEAD OF MEASUREMENT & INSIGHTS 1700 [place] [address] Assigned Heart and Vascular Provider 04/03/22 04/16/22 Diana Desir, [facility] [address] [place] [address] Assigned MTM Pharmacist 04/07/22 Jelena David OD [address] [facility] [address] Assigned Surgical Provider 05/08/22 10/08/22 Galo Burrell MD Assigned Heart and Vascular Provider 04/17/22 06/11/22 Livan Sharif MD [address] [place] [id number] Cardiovascular Disease 05/14/22 Livan Sharif MD [address] [place] 792285 Assigned Heart and Vascular Provider 06/12/22 07/23/22 Catherine Cm MD [address] [place] [address] Cardiovascular Disease 07/21/22 Valery Veronica, PA-C [address] [place] [address] Physician Still Operator Dermatology 07/21/22 Catherine Cm MD [address] [place] [address] Assigned Heart and Vascular Provider 07/24/22 11/05/22 Johnny Murillo MD [facility] [address] [address] Assigned Musculoskeletal Provider 08/14/22 10/08/22 Brea Quinn APRN HEAD OF MEASUREMENT & INSIGHTS [address] [place] [address] Nurse Practitioner Dermatology 09/21/22 Brea Quinn APRN HEAD OF MEASUREMENT & INSIGHTS [facility] [facility] [place] [address] Assigned Surgical Provider 10/09/22 05/01/24 [place] [address] [facility] 300 [place] [address] Assigned Musculoskeletal Provider 10/09/22 05/01/24 Livan Sharif MD [address] [facility] [address] [place] [address] Assigned Heart and Vascular Provider 11/06/22 11/12/22 Catherine Cm MD [address] 2[address]100 [place] [address] Assigned Heart and Vascular Provider 11/13/22 05/27/23 Sydnie Martinez RN Personal Advocate & Liaison (PAL) Family Medicine 03/28/23 07/31/23 Alfonso Renteria MD 5775 [facility] 200 [place] [address] Assigned Neuroscience Provider 04/02/23 09/29/24 Cheng Todd PA-C [address] [place] [address] Assigned PCP 04/30/23 07/15/23 Radha Lomeli APRN HEAD OF MEASUREMENT & INSIGHTS 6405 [facility] [address] [place] [address] Assigned Heart and Vascular Provider 05/28/23 Jelena David OD [address] [facility] [address] MD Ophthalmology 06/15/23 Pao Joseph, RN Personal Advocate & Liaison (PAL) Nurse 08/01/23 11/07/23 Esha Grimm PA-C [address] [place] [phone] Assigned PCP 07/16/23 Valery Veronica PA-C [address] [place] [address] 750655 Physician Still Operator Dermatology 09/19/23 Rey Tay MD [address] [place] [address] 273065 Gastroenterology 09/20/23 Rocky Zepeda DO [address] [place] [address] 447925 Physician Gastroenterology 09/20/23 Philip Dumont MD [address] [place] [address] 600335 Physician Ophthalmology 09/22/23 Meredith Carrera PA-C [address] [place] [address] 426475 Assigned Gastroenterology Provider 11/01/23 Neil Kent MD [address] [place] [address] 267000 Dermatology 11/02/23 [place] [address] [place] [address] Neurological Surgery 12/26/23 Audrey Waite PA-C 500 [place] [address] Physician Still Operator Dermatology 02/28/24 Valery Veronica PA-C 885497 99 [place] [address] Physician Still Operator Dermatology 04/10/24 Herminia Hatch MD [address] [place] [address] [phone] Assigned Rheumatology Provider 07/02/24 [place] [address] [place] [address] [place] [address] Ophthalmology 08/30/24 [place] [address] RA[address] [facility] [place] [address] Assigned Neuroscience Provider 09/30/24 Maru Man PA-C [address] [place] [address] Physician Still Operator Dermatology 10/03/24 Maru Man PA-C [address] [place] [address] Physician Still Operator Dermatology 10/22/24 [place] [address] [facility] [address] [place], [place] [address] Assigned Surgical Provider 10/31/24 documented as of this encounter
--- OUTSIDE RECORDS SUMMARY | 2024-11-21 04:13 | XMS_ITS | Encounter Summary ---
Author Organization [facility] Address [address] [place] [address] Care Team Providers Care Manager Content Name Role Phone Lita Oseguera Unavailable Unavailable Marija Edgar APRN INSTRUMENT TECHNICIAN Primary Care Provider + Marija Edgar APRN INSTRUMENT TECHNICIAN Unavailable [phone] Keisha Dotson MD Unavailable Diana Desir [facility] Unavailable [phone] Rain Galaviz PA-C Unavailable Tavia Wyatt MD Unavailable Erica Farrell APRN [facility] Unavailable Tavia Wyatt MD Unavailable [phone] Rich Barrett MD Unavailable [phone] Neil Kent MD Unavailable Roney Story DPM Unavailable Erica Farrell APRN INSTRUMENT TECHNICIAN Unavailable Diana Desir [facility] Unavailable Jelena David OD Unavailable Galo Burrell MD Unavailable Unavailable Livan Sharif MD Unavailable Livan Sharif MD Unavailable IsraynaCatherine boothe MD Unavailable + Valery Veronica PA-C Unavailable [phone] IsCatherine hobbs MD Unavailable + Johnny Murillo MD Unavailable [phone] Brea Quinn ORNITHOLOGY TEACHER INSTRUMENT TECHNICIAN Unavailable [phone] Brea Quinn ORNITHOLOGY TEACHER INSTRUMENT TECHNICIAN Unavailable [phone] Jose Francisco Johnson MD Unavailable Livan Sharif MD Unavailable Isfaby, Catherine Marques MD Unavailable + Sydnie Martinez RN Unavailable Unavailable Alfonso Renteria MD Unavailable [phone] Esha Grimm PA-C Primary Care Provider Cheng Todd PA-C Unavailable Radha Lomeli ORNITHOLOGY TEACHER INSTRUMENT TECHNICIAN Unavailable [phone] Jelena David SONJA Unavailable Pao Joseph RN Unavailable Unavailable Esha Grimm PA-C Unavailable [phone] Valery Veronica PA-C Unavailable [phone] Rey Tay MD Unavailable Rocky Zepeda DO Unavailable Philip Dumont MD Unavailable [phone] Meredith Carrera PA-C Unavailable [phone] Neil Kent MD Unavailable Juan Pablo Emmanuel MD Unavailable Audrey Waite PA-C Unavailable Valery Veronica PA-C Unavailable Herminia Hatch MD Unavailable Jelena David OD Unavailable Juan Pablo Emmanuel MD Unavailable [phone] Maru Man PA-C Unavailable [phone] Maru Man PA-C Unavailable +- Jelena David OD Unavailable Encounter Details Date Type Department Care Team (Late st Contact Info) Description 04/07/2022 [facility] Medical Advice [address] [address] Diana Desir, [facility] 30[address] [place] [address] Social History Tobacco Use Types [...] How often do you attend christianity or episcopalian serv ices? Never 09/22/2021 Do [...] Answer Date Recorded PHQ-2 Score 2 12/18/2021 [facility]at [facility] Health [...] in a fdc (including now)? No 09/22/2021 [place] Depression Scale [...] PM CDT Legal Sex Female 4:13 AM DRUG ABUSE TECHNICIAN Gender Identity Female 03/02/2021 5:45 PM [...] Description 11/21/2024 7:00 AM CDT Office Visit [address] [phone] Maru Man PA-C [address] [phone] 12/20/2024 2:30 PM CDT Office Visit [facility] [phone] [place] [phone] Esha Grimm PA-C [address] [place] [phone] 04/16/2025 11:00 AM CDT Virtual Visit [facility] [address] [place] [phone] Meredith Carrera PA-C [address] [place] [address] documented as of this encounter Visit Diagnoses Not on filedocumented in this encounter Additional Health Concerns Infection Onset Date Last Indicated Resolved Time Rule Out COVID-19 04/26/2022 04/26/2022 04/26/2022 6:47 AM CDT Rule Out COVID-19 05/17/2022 05/17/2022 05/17/2022 10:20 PM DRUG ABUSE TECHNICIAN Rule Out COVID-19 06/09/2022 06/09/2022 06/09/2022 9:35 AM DRUG ABUSE TECHNICIAN COVID-19 06/09/2022 06/09/2022 06/30/2022 11:4 1 PM DRUG ABUSE TECHNICIAN Rule Out COVID-19 11/10/2022 11/10/2022 11/11/2022 [...] as of this encounter Care Teams Manager Content Relationship Specialty Start Date End Date Marija Edgar APRN INSTRUMENT TECHNICIAN PCP - General Nurse Practitioner 04/30/20 04/14/23 Esha Grimm PA-C [address] [place] [phone] PCP - General Family Medicine 05/04/23 Lita Oseguera Personal Advocate & Liaison (PAL) 02/28/20 03/27/23 Marija Edgar APRN INSTRUMENT TECHNICIAN Assigned PCP 06/08/20 04/29/23 Keisha Dotson MD 909 [place] [address] Assigned Neuroscience Provider 06/04/20 04/01/23 [facility] 3033 [place] [address] Pharmacist Pharmacist 04/17/21 Rain Galaviz PA-C [address] [place] [address] [address] [facility] [address] Physician Coloring Machine Operator Dermatology 04/28/21 Tavia Wyatt MD [address] [place] [address] [address] [place] [address] Dermatology 07/14/21 Erica Farrell APRN INSTRUMENT TECHNICIAN 6405 [facility] [address] [place] [address] Nurse Practitioner Cardiovascular Disease 09/09/21 Tavia Wyatt MD 101 [place] [address] Assigned Surgical Provider 11/29/21 05/07/22 Rich Barrett MD 101 [place] [address] Physician Ophthalmology 01/21/22 Neil Kent MD 500 [place] [address] Dermatology 02/24/22 Roney Story DPM 11848 [facility] [address] [place] [address] Assigned Musculoskeletal Provider 03/20/22 08/13/22 Erica Farrell APRN INSTRUMENT TECHNICIAN 1700 [place] [address] Assigned Heart and Vascular Provider 04/03/22 04/16/22 Diana Desir, [facility] 3033 [place] [address] Assigned MTM Pharmacist 04/07/22 Jelena David OD 3305 [facility] [place] [address] Assigned Surgical Provider 05/08/22 10/08/22 Galo Burrell MD Assigned Heart and Vascular Provider 04/17/22 06/11/22 Livan Sharif MD 6405 [facility] [address] [place] [id number] Cardiovascular Disease 05/14/22 Livan Sharif MD [address] 0701300 [place] [address] Assigned Heart and Vascular Provider 06/12/22 07/23/22 Catherine Cm MD [address] [address] [place] [address] Cardiovascular Disease 07/21/22 Valery Veronica, PA-C [address] [place] [address] 189275 Physician Coloring Machine Operator Dermatology 07/21/22 Catherine Cm MD [address] [address] [place] 368025 Assigned Heart and Vascular Provider 07/24/22 11/05/22 Johnny Murillo MD [address] [place] [address] 771564 Assigned Musculoskeletal Provider 08/14/22 10/08/22 Brea Quinn APRN INSTRUMENT TECHNICIAN [address] [place] [address] 683725 Nurse Practitioner Dermatology 09/21/22 Brea Quinn APRN INSTRUMENT TECHNICIAN [address] [place] [address] [place] 018012 Assigned Surgical Provider 10/09/22 05/01/24 [place] [address] [place] [address] 815267 Assigned Musculoskeletal Provider 10/09/22 05/01/24 Livan Sharif MD [address] [facility] [address] [place] [address] Assigned Heart and Vascular Provider 11/06/22 11/12/22 Catherine Cm MD [address] [facility] [address] [place] [address] Assigned Heart and Vascular Provider 11/13/22 05/27/23 Sydnie Martinez RN Personal Advocate & Liaison (PAL) Family Medicine 03/28/23 07/31/23 Alfonso Renteria MD 5775 [facility] 200 [place] [address] Assigned Neuroscience Provider 04/02/23 09/29/24 Cheng Todd PA-C [address] [place] [address] [phone] Assigned PCP 04/30/23 07/15/23 Radha Lomeli APRN INSTRUMENT TECHNICIAN [address] [place] [address] Assigned Heart and Vascular Provider 05/28/23 Jelena David OD [address] [facility] [place] [address] Ophthalmology 06/15/23 Pao Joseph RN Personal Advocate & Liaison (PAL) Nurse 08/01/23 11/07/23 Esha Grimm PAUcheC [address] [place] [phone] Assigned PCP 07/16/23 Valery Veronica PA-C [address] [place] [address] Physician Coloring Machine Operator Dermatology 09/19/23 Rey Tay MD [address] [place] [address] MD Gastroenterology 09/20/23 Rocky Zepeda DO [address] [place] [address] 871705 Physician Gastroenterology 09/20/23 Philip Dumont MD [address] [place] [address] Physician Ophthalmology 09/22/23 Meredith Carrera PA-C [address] [place] [address] 760415 Assigned Gastroenterology Provider 11/01/23 Neil Kent MD [address] 917460 Dermatology 11/02/23 [place] [address] [facility] [place] [address] Neurological Surgery 12/26/23 Audrey Waite PA-C [address] [place] [address] Physician Coloring Machine Operator Dermatology 02/28/24 Valery Veronica PA-C [address] [facility] [place] [address] Physician Coloring Machine Operator Dermatology 04/10/24 Herminia Hatch MD [address] [place] [address] Assigned Rheumatology Provider 07/02/24 Jelena David OD [address] [place] [address] [place] [address] Ophthalmology 08/30/24 [place] [address] [place] [address] Assigned Neuroscience Provider 09/30/24 Maru Man PA-C [address] [place] [address] Physician Coloring Machine Operator Dermatology 10/03/24 Maru Man PA-C [address] [place] [address] Physician Coloring Machine Operator Dermatology 10/22/24 Jelena David OD [address] [place] [address] [place] [address] Assigned Surgical Provider 10/31/24 documented as of this encounter
--- OUTSIDE RECORDS SUMMARY | 2024-11-21 04:13 | XMS_ITS | Encounter Summary ---
Author Organization [place] Address [address] [place] [address] Care Team Providers Care Fire Control Assistant Name Role Phone Diana Desir Stanislav [facility] Unavailable [phone] Rain Galaviz PA-C Unavailable [phone] Tavia Wyatt MD Unavailable Erica Farrell APRN DIRECTOR BUSINESS TRAVEL Unavailable Rich Barrett MD Unavailable [phone] Neil Kent MD Unavailable ThangKendrickDiana Stanislav [facility] Unavailable [phone] Livan Sharif MD Unavailable Catherine Cm MD Unavailable + Valery Veronica-C Unavailable Brea Quinn LINE SUPERVISOR DIRECTOR BUSINESS TRAVEL Unavailable [phone] Esha Grimm PA-C Primary Care Provider [phone] Radha Lomeli APRN DIRECTOR BUSINESS TRAVEL Unavailable Jelena David OD Unavailable Esha Grimm PA-C Unavailable [phone] Valery Veronica PA-C Unavailable Rey Tay MD Unavailable Rocky Zepeda DO Unavailable Philip Dumont MD Unavailable [phone] Meredith Carrera-C Unavailable Neil Kent MD Unavailable Juan Pablo Emmanuel MD Unavailable [phone] Audrey Waite PA-C Unavailable Valery Veronica PA-C Unavailable Herminia Hatch MD Unavailable Jelena David OD Unavailable Juan Pablo Emmanuel MD Unavailable Maru Man-C Unavailable Maru Man-C Unavailable Jelena David OD Unavailable Reason for Visit * Reason Onset Date Comments Appointment 11/07/2024 Encounter Details Date Type Department Care Team (Late st Contact Info) Description 11/07/2024 Telephone [facility] Gastroenterology Clinic [address] [address] Meredith Carrera PA-C [address] [place] [address] [phone] Appointment Social History Tobacco Use Types Packs/Day [...] Answer Date Recorded PHQ-2 Score 1 10/24/2024 [facility] - [...] exercise at this level? 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 Gender Identity Female 03/02/2021 5:45 PM CDT Sexual Orientation Straight 02/28/2020 12 :51 AM CDT documented as of this encounter Miscellaneous Notes * Telephone Encounter - Kinza Cervantes - 11/07/2024 1:57 PM CDT Left Voicemail (1st Attempt) and Sent Mychart (1st Attempt) for the patient to call back and schedule the following: Appointment type: Return Provider: CARI Hannah Return date: ~ RTC 03/04 Specialty phone number: [phone] Additional appointment(s) needed: Labs Additonal Notes: Follow up per provider req - 11/07 AA documented in this encounter Plan of Treatment Upcoming Encounters Date Type Department Care Team (Late st Contact Info) Description 11/21/2024 7:00 AM CDT Office Visit [facility] [address] [address] Maru Man PA-C [address] [address] 12/20/2024 2:30 PM CDT Office Visit [facility] [address] [place] [address] Esha Grimm PA-C [address] [place] [address] 04/16/2025 11:00 AM CDT Virtual Visit [facility] Gastroenterology Clinic [address] [phone] Meredith Carrera PA-C [address] [place] [address] [phone] documented as of this encounter Visit Diagnoses Not on filedocumented in this encounter Additional Health Concerns Assessment Noted Time PHQ-9 Depression Total Score: 5 10/25/19 25 10:38 AM CDT documented as of this encounter Care Teams Fire Control Assistant Relationship Specialty Start Date End Date Esha Grimm PA-C [address] [place] [address] PCP - General Family Medicine 05/04/23 Diana Desir, [facility] [address] [place] [address] Pharmacist Pharmacist 04/17/21 Rain Galaviz PA-C [address] [place] [address] [address] [place] [address] Physician Hand Paint Mixer Dermatology 04/28/21 Tavia Wyatt MD [address] [place] [address] [address] [place] [address] Dermatology 07/14/21 Erica Farrell APRN DIRECTOR BUSINESS TRAVEL [address] [place] 527005 Nurse Practitioner Cardiovascular Disease 09/09/21 Rich Barrett MD [address] [place] 169485 Physician Ophthalmology 01/21/22 Neil Kent MD 500 [place], [place] 205245 Dermatology 02/24/22 Diana Desir, [facility] 30[address] [place], [place] 833906 Assigned MTM Pharmacist 04/07/22 Livan Sharif MD [address] [place] 6[address]145 Cardiovascular Disease 05/14/22 Catherine Cm MD [address] [place] 528515 Cardiovascular Disease 07/21/22 Valery Veronica PA-C [address] [place] [address] Physician Hand Paint Mixer Dermatology 07/21/22 Brea Quinn APRN DIRECTOR BUSINESS TRAVEL [address] [place] [address] 953495 Nurse Practitioner Dermatology 09/21/22 Radha Lomeli, LINE SUPERVISOR DIRECTOR BUSINESS TRAVEL [address] [facility] [address] [place], [place] 116115 Assigned Heart and Vascular Provider 05/28/23 Jelena David OD [address] [facility] [address] MD Ophthalmology 06/15/23 Esha Grimm PA-C [address] [place] [phone] Assigned PCP 07/16/23 Valery Veronica PA-C [address] [place] [address] Physician Hand Paint Mixer Dermatology 09/19/23 Rey Tay MD [address] [place] [address] Gastroenterology 09/20/23 Rocky Zepeda DO [address] [place] [address] 540185 Physician Gastroenterology 09/20/23 Philip Dumont MD [address] [place] [address] Physician Ophthalmology 09/22/23 Meredith Carrera PA-C [address] [place] [address] Assigned Gastroenterology Provider 11/01/23 Neil Kent MD [address] [address] Dermatology 11/02/23 [place] [address] [place] [address] Neurological Surgery 12/26/23 Audrey Waite PA-C [address] [place] [address] Physician Hand Paint Mixer Dermatology 02/28/24 Valery Veronica PA-C [id number] [place] [address] Physician Hand Paint Mixer Dermatology 04/10/24 Herminia Hatch MD [address] [place] [address] [phone] Assigned Rheumatology Provider 07/02/24 [place] [address] [place] [address] [place] [address] Ophthalmology 08/30/24 [place] [address] [place] [address] Assigned Neuroscience Provider 09/30/24 Maru Man PA-C [address] [place] [address] Physician Hand Paint Mixer Dermatology 10/03/24 Maru Man PA-C [address] [place] [address] Physician Hand Paint Mixer Dermatology 10/22/24 Jelena David OD [address] [place] [address] [place] [address] Assigned Surgical Provider 10/31/24 documented as of this encounter
--- OUTSIDE RECORDS SUMMARY | 2024-11-21 04:13 | XMS_ITS | Encounter Summary ---
Author Organization [place] Address [address] [place] [address] Care Team Providers Care Social Science Analyst Name Role Phone Lita Oseguera Unavailable Unavailable Marija Edgar APRN FINANCIAL AGENT Primary Care Provider + Marija Edgar APRN FINANCIAL AGENT Unavailable [phone] Keisha Dotson MD Unavailable Diana Desir [facility] Unavailable [phone] Rain Galaviz PA-C Unavailable Tavia Wyatt MD Unavailable Erica Farrell APRN FINANCIAL AGENT Unavailable Tavia Wyatt MD Unavailable [phone] Rich Barrett MD Unavailable [phone] Neil Kent MD Unavailable Roney Story DPM Unavailable Diana Desir [facility] Unavailable Jelena David OD Unavailable Galo Burrell MD Unavailable Unavailable Livan Sharif MD Unavailable Livan Sharif MD Unavailable IsCatherine hobbs MD Unavailable + Valery Veronica PA-C Unavailable Catehrine Cm MD Unavailable + Johnny Murillo MD Unavailable Brea Quinn [employer] FINANCIAL AGENT Unavailable [phone] Brea Quinn [employer]OND [employer]ER FINANCIAL AGENT Unavailable [phone] Jose Francisco Johnson MD Unavailable Livan Sharif MD Unavailable Catherine Cm MD Unavailable + Sydnie Martinez RN Unavailable Unavailable Alfonso Renteria MD Unavailable [phone] Esha Grimm PA-C Primary Care Provider Cheng Todd PA-C Unavailable Radha Lomeli [employer] FINANCIAL AGENT Unavailable Jelena David OD Unavailable Pao Joseph RN Unavailable Unavailable Esha Grimm PA-C Unavailable [phone] Valery Veronica PA-C Unavailable Rey Tay MD Unavailable Rocky Zepeda DO Unavailable Philip Dumont MD Unavailable Meredith Carrera PA-C Unavailable Neil Kent MD Unavailable Juan Pablo Emmanuel MD Unavailable Audrey Waite PA-C Unavailable Valery Veronica PA-C Unavailable Herminia Hatch MD Unavailable Jelena David OD Unavailable [phone] Juan Pablo Emmanuel MD Unavailable Maru Man PA-C Unavailable [phone] Maru Man PA-C Unavailable + Jelena David OD Unavailable [phone] Encounter Details Date Type Department Care Team (Late st Contact Info) Description 04/20/2022 MyC Medical Advice [facility] [place] [id number] [facility] [address] [place] [address] Margaret Rendon RN Social History Tobacco Use Types Packs/Day [...] How often do you attend zoroastrianism or nondenominational serv ices? Never 09/22/2021 Do [...] Answer Date Recorded PHQ-2 Score 2 12/18/2021 [facility] - Occupational Stress [...] in a snf (including now)? 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 Gender Identity Female 03/02/2021 5:45 [...] 11/21/2024 7:00 AM CDT Office Visit [address] [phone] Maru Man PA-C [address] [place] [address] 12/20/2024 2:30 PM CDT Office Visit [address] [address] Esha Grimm PA-C [address] [place] [phone] 04/16/2025 11:00 AM CDT Virtual Visit [facility] Gastroenterology Clinic [address] 4[address] [place] [address] Meredith Carrera PA-C [address] [place] [address] documented as of this encounter Visit Diagnoses Not on filedocumented in this encounter Additional Health Concerns Infection Onset Date Last Indicated Resolved Time Rule Out COVID-19 04/26/2022 04/26/2022 04/26/2022 6:47 AM CDT Rule Out COVID-19 05/17/2022 05/17/2022 05/17/2022 10:20 PM SERVICE INSPECTOR Rule Out COVID-19 06/09/2022 06/09/2022 06/09/2022 9:35 AM SERVICE INSPECTOR COVID-19 06/09/2022 06/09/2022 06/30/2022 11:4 1 PM SERVICE INSPECTOR Rule Out COVID-19 11/10/2022 11/10/2022 [...] documented as of this encounter Care Teams Social Science Analyst Relationship Specialty Start Date End Date Marija Edgar APRN CNP PCP - General Nurse Practitioner 04/30/20 04/14/23 Esha Grimm PA-C [address] [place] [address] PCP - General Family Medicine 05/04/23 Lita Oseguera Personal Advocate & Liaison (PAL) 02/28/20 03/27/23 Marija Edgar APRN FINANCIAL AGENT Assigned PCP 06/08/20 04/29/23 Keisha Dotson MD [address] [place], [place] 595765 Assigned Neuroscience Provider 06/04/20 04/01/23 Diana Desir [facility] 3033 [place], [place] [phone] Pharmacist Pharmacist 04/17/21 Rain Galaviz PA-C [address] [place] [address] [address] [place] [address] Physician National Flatbed Truck Driver Dermatology 04/28/21 Tavia Wyatt MD [address] [place] [address] [address] [place] [address] Dermatology 07/14/21 Erica Farrell APRN FINANCIAL AGENT [address] [facility] [address] [place] 425995 Nurse Practitioner Cardiovascular Disease 09/09/21 Tavia Wyatt MD [address] [place] [address] Assigned Surgical Provider 11/29/21 05/07/22 Rich Barrett MD [address] [place] [address] Physician Ophthalmology 01/21/22 Neil Kent MD 500 [place] [address] Dermatology 02/24/22 Roney Story DPM [address] [facility] [address] [place], [place] 917417 Assigned Musculoskeletal Provider 03/20/22 08/13/22 Diana Desir, [facility] [address] [place], [place] 336826 Assigned MTM Pharmacist 04/07/22 Jelena David OD [address] [place] [address] Assigned Surgical Provider 05/08/22 10/08/22 Galo Burrell MD Assigned Heart and Vascular Provider 04/17/22 06/11/22 Livan Sharif MD [address] [place] [id number] Cardiovascular Disease 05/14/22 Livan Sharif MD [address] [place] 739745 Assigned Heart and Vascular Provider 06/12/22 07/23/22 Catherine Cm MD [address] [place] 377815 Cardiovascular Disease 07/21/22 Valery Veronica, PAUcheC [address]09 [place] [address] Physician National Flatbed Truck Driver Dermatology 07/21/22 Catherine Cm MD [address] [address] Assigned Heart and Vascular Provider 07/24/22 11/05/22 Johnny Murillo MD [address] [place] [address] Assigned Musculoskeletal Provider 08/14/22 10/08/22 Brea Quinn APRN FINANCIAL AGENT [address] [place] [address] Nurse Practitioner Dermatology 09/21/22 Brea Quinn APRN FINANCIAL AGENT [address] [place] [address] Assigned Surgical Provider 10/09/22 05/01/24 [place] [address] [address] Assigned Musculoskeletal Provider 10/09/22 05/01/24 Livan Sharif MD [address] [place] [address] [place] [address] Assigned Heart and Vascular Provider 11/06/22 11/12/22 Catherine Cm MD [address] [place] [address] Assigned Heart and Vascular Provider 11/13/22 05/27/23 Sydnie Martinez RN Personal Advocate & Liaison (PAL) Family Medicine 03/28/23 07/31/23 Alfonso Renteria MD 5775 [facility] 200 [place] [address] Assigned Neuroscience Provider 04/02/23 09/29/24 Cheng Todd PA-C [address] [place] [address] [phone] Assigned PCP 04/30/23 07/15/23 Radha Lomeli APRN FINANCIAL AGENT [address] [place] [address] Assigned Heart and Vascular Provider 05/28/23 Jelena David OD [address] [place] [address] Ophthalmology 06/15/23 Pao Joseph RN Personal Advocate & Liaison (PAL) Nurse 08/01/23 11/07/23 Esha Grimm PA-C [address] [place] [address] Assigned PCP 07/16/23 Valery Veronica PA-C [address] [place] [address] Physician National Flatbed Truck Driver Dermatology 09/19/23 Rey Tay MD [address] [place] [address] MD Gastroenterology 09/20/23 Rocky Zepeda DO [address] [place] [address] Physician Gastroenterology 09/20/23 Philip Dumont MD [address] [place] [address] Physician Ophthalmology 09/22/23 Meredith Carrera PA-C [address] [place] [address] Assigned Gastroenterology Provider 11/01/23 Neil Kent MD [address] [place] [address] MD Dermatology 11/02/23 [place] [address] [address] Neurological Surgery 12/26/23 Audrey Waite PA-C [address] [place] [address] Physician National Flatbed Truck Driver Dermatology 02/28/24 Valery Veronica PA-C 203130 [address], [place] [address] Physician National Flatbed Truck Driver Dermatology 04/10/24 Herminia Hatch MD [address] [place] [address] [phone] Assigned Rheumatology Provider 07/02/24 Jelena David OD [address] [facility] [place] [address] Ophthalmology 08/30/24 [place] [address] [address] [place] [address] Assigned Neuroscience Provider 09/30/24 Maru Man PA-C [address] [place] [address] Physician National Flatbed Truck Driver Dermatology 10/03/24 Maru Man PA-C [address] [place] [address] Physician National Flatbed Truck Driver Dermatology 10/22/24 Jelena David OD [address] [facility] [place] [address] Assigned Surgical Provider 10/31/24 documented as of this encounter
--- OUTSIDE RECORDS SUMMARY | 2024-11-21 04:14 | XMS_ITS | Encounter Summary ---
Author Organization [place] Address [address] [place] [address] Care Team Providers Care Investigation Division Captain Name Role Phone Diana Desir [facility] Unavailable Rain Galaviz PA-C Unavailable Tavia Wyatt MD Unavailable Erica Farrell APRN PARK INTERPRETIVE RANGER Unavailable Rich Barrett MD Unavailable [phone] Neil Kent MD Unavailable DesirDiana [facility] Unavailable [phone] Livan Sharif MD Unavailable Catherine Cm MD Unavailable + Valery Veronica PA-C Unavailable Brea Quinn APRN PARK INTERPRETIVE RANGER Unavailable Brea Quinn EVENING SITTER PARK INTERPRETIVE RANGER Unavailable [phone] Jose Francisco Johnson MD Unavailable Sydnie Martinez RN Unavailable Unavailable Alfonso Renteria MD Unavailable [phone] Esha Grimm PA-C Primary Care Provider Cheng oTdd PA-C Unavailable [phone] Radha Lomeli APRPhani GRANADOS Unavailable Jelena David OD Unavailable Pao Joseph RN Unavailable Unavailable Esha Grimm Adam PA-C Unavailable [phone] Valery Veronica PA-C Unavailable Rey Tay MD Unavailable Rocky Zepeda DO Unavailable Philip Dumont MD Unavailable Meredith Carrera PA-C Unavailable Neil Kent MD Unavailable Juan Pablo Emmanuel MD Unavailable Audrey Waite PA-C Unavailable JeremíasValery damon PA-C Unavailable Herminia Hatch MD Unavailable Jelena David OD Unavailable Juan Pablo Emmanuel MD Unavailable [phone] Maru Man PA-C Unavailable Maru Man PA-C Unavailable Jelena David OD Unavailable Encounter Details Date Type Department Care Team (Late st Contact Info) Description 06/15/2023 [facility] [place] [facility] [place] [facility] G[facility]ology [facility] [address] [address] Doris Levi Social History Tobacco [...] you attend [facility] or sikh services? 1 to 4 [...] Answer Date Recorded PHQ-2 Score 1 05/16/2023 [facility] Occupat ional [...] exercise at this level? 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 Gender Identity Female 03/02/2021 5:45 PM CDT Sexual Orientation Straight 02/28/2020 12 :51 AM CDT documented as of this encounter Plan of Treatment Upcoming Encounters Date Type Department Care Team (Late st Contact Info) Description 11/21/2024 7:00 AM CDT Office Visit [address] [place] [phone] Maru Man PA-C [address] [address] 12/20/2024 2:30 PM CDT Office Visit [facility] [address] [place] [address] Esha Grimm PA-C [address] [place] [address] 04/16/2025 11:00 AM CDT Virtual Visit [facility] Gastroenterology Clinic [address] [phone] Meredith Carrera PA-C [address] [place] [address] 816045 documented as of this encounter Visit Diagnoses [...] Depression Total Score: 6 05/16/20 9:29 AM DISPOSAL OPERATOR documented as of this encounter Care Teams Investigation Division Captain Relationship Specialty Start Date End Date Esha Grimm PA-C [address] [place] [address] PCP - General Family Medicine 05/04/23 Diana Desir, [facility] 30[address] [place] [address] Pharmacist Pharmacist 04/17/21 Rain Galaviz PA-C [address] [place] [address] [address] [place] [address] Physician Commercial Decorator Dermatology 04/28/21 Tavia Wyatt MD [address] [place] [address] [address] [place] [address] Dermatology 07/14/21 Erica Farrell APRN PARK INTERPRETIVE RANGER [address] [place] [address] Nurse Practitioner Cardiovascular Disease 09/09/21 Rich Barrett MD [address] [place] [address]45 Physician Ophthalmology 01/21/22 Neil Kent MD 500 [place] [address] Dermatology 02/24/22 [facility] 3033 [place] [address] Assigned MTM Pharmacist 04/07/22 Livan Sharif MD [address] [place] [address] Cardiovascular Disease 05/14/22 Catherine Cm MD [address] [place] [address] Cardiovascular Disease 07/21/22 Valery Veronica PA-C 909 [place] [address] Physician Commercial Decorator Dermatology 07/21/22 Brea Quinn APRN PARK INTERPRETIVE RANGER [address] [place] [address] Nurse Practitioner Dermatology 09/21/22 Brea Quinn APRN PARK INTERPRETIVE RANGER [address]01 [place] [address] Assigned Surgical Provider 10/09/22 05/01/24 [place] [address] [facility] 300 [place] [address] Assigned Musculoskeletal Provider 10/09/22 05/01/24 Sydnie Martinez RN Personal Advocate & Liaison (PAL) Family Medicine 03/28/23 07/31/23 Alfonso Renteria MD 5775 [facility] 200 [place], [place] 0[address]16 Assigned Neuroscience Provider 04/02/23 09/29/24 Cheng Todd PA-C [address] [place] [address] [id number] Assigned PCP 04/30/23 07/15/23 Radha Lomeli APRN PARK INTERPRETIVE RANGER [address] [place] [address]1600 [place] [address] Assigned Heart and Vascular Provider 05/28/23 Jelena David OD [address] [facility] [place] [address] MD Ophthalmology 06/15/23 Pao Joseph, RN Personal Advocate & Liaison (PAL) Nurse 08/01/23 11/07/23 Esha Grimm PA-C [address] [place] [address] Assigned PCP 07/16/23 Valery Veronica PA-C [address] [place] [address] 819025 Physician Commercial Decorator Dermatology 09/19/23 Rey Tay MD [address] [place] [address] MD Gastroenterology 09/20/23 Rocky Zepeda DO [address] [place] [address] 152725 Physician Gastroenterology 09/20/23 Philip Dumont MD [address] [place] [address] 248535 Physician Ophthalmology 09/22/23 Meredith Carrera PA-C [address] [place] [address] 461485 Assigned Gastroenterology Provider 11/01/23 Neil Kent MD [address] 946120 Dermatology 11/02/23 [place] [address] [place] [place] [address] Neurological Surgery 12/26/23 Audrey Waite PA-C 500 [place] [address] Physician Commercial Decorator Dermatology 02/28/24 Valery Veronica PA-C 959856 [address] [place] [address] Physician Commercial Decorator Dermatology 04/10/24 Herminia Hatch MD [address] [place] [address] [phone] Assigned Rheumatology Provider 07/02/24 Jelena David, SONJA [address] [place] [address] [place] [address] Ophthalmology 08/30/24 [place] [address] [place] [address] Assigned Neuroscience Provider 09/30/24 Maru Man PA-C [address] [place] [address] Physician Commercial Decorator Dermatology 10/03/24 Maru Man PA-C [address] [place] [address] Physician Commercial Decorator Dermatology 10/22/24 Jelena David OD [address] [facility] [address] [place] [address] Assigned Surgical Provider 10/31/24 documented as of this encounter
--- OUTSIDE RECORDS SUMMARY | 2024-11-21 04:14 | XMS_ITS | Encounter Summary ---
Author Organization [facility] Address [address] [place] [address] Care Team Providers Care Traveling Auditor Name Role Phone Diana Desir Stanislav [facility] Unavailable Rain Galaviz PA-C Unavailable Tavia Wyatt MD Unavailable Erica Farrell APRN HEALTH AND FITNESS INSTRUCTOR Unavailable Rich Barrett MD Unavailable [phone] Neil Kent MD Unavailable ThangKendrickDiana Stanislav [facility] Unavailable [phone] Livan Sharif MD Unavailable Catherine Cm MD Unavailable + Valery Veronica-C Unavailable Brea Quinn ADVISER SALES HEALTH AND FITNESS INSTRUCTOR Unavailable Esha Grimm PA-C Primary Care Provider [phone] Radha Lomeli APRN HEALTH AND FITNESS INSTRUCTOR Unavailable Jelena David OD Unavailable Esha Grimm PA-C Unavailable [phone] Valery Veronica PA-C Unavailable Rey Tay [...] 2 Views Estephania Flannery NP [address] [place] [address] Phone: tel: fax: Referral ID Status Reason Start Date Expiration Date V isits Requested Visits Authorized [id number] Pending Review 11/20/2024 11/20/2025 1 1 Encounter Details Date Type Department Care Team (Late st Contact Info) Description 11/20/2024 11:20 AM CDT Ancillary Procedure [facility] [address] [place] [address] Estephania Flannery NP [address] [place] [address] Acute cough Social History Tobacco Use [...] Answer Date Recorded PHQ-2 Score 1 10/24/2024 [facility] - [...] exercise at this level? 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 [address] [place] [phone] Esha Grimm PA-C [address] [place] [address] 04/16/2025 11:00 AM CDT Virtual Visit [facility] [address] [place] [phone] Meredith Carrera PA-C [address] [place] [address] documented as of this encounter Procedures Procedure [...] CDT EXAM: XR CHEST 2 VIEWS LOCATION: [facility] DATE: 11/20/2024 INDICATION: Acute cough COMPARISON: 10/28/2024 Procedure Note Robert Ramos MD - 11/20/2024 EXAM: XR CHEST 2 VIEWS LOCATION: [facility] DATE: 11/20/2024 INDICATION: Acute cough COMPARISON: 10/28/2024 IMPRESSION: Negative chest. Estephania Flannery FIRE MARSHAL REFINERY IMG DIAGNOSTIC IMAGING DONYA HERRERA Final Result documented in this encounter Visit Diagnoses Diagnosis Acute cough documented in this encounter Additional Health Concerns Infection Onset Date Last Indicated Resolved Time Rule Out COVID-19 11/20/2024 11/20/2024 Assessment Noted Time PHQ-9 Depression Total Score: 5 10/25/19 10:38 AM CDT documented as of this encounter Care Teams Traveling Auditor Relationship Specialty Start Date End Date Esha Grimm PA-C [address] [place] [phone] PCP - General Family Medicine 05/04/23 Diana Desir, [facility] [address] [place] [address] Pharmacist Pharmacist 04/17/21 Rain Galaviz PA-C [address] [place] [address] [address] [place] [address] Physician Computer Animator Dermatology 04/28/21 Tavia Wyatt MD [address] [place] [address] [address] [place] [address] Dermatology 07/14/21 Erica Farrell APRN HEALTH AND FITNESS INSTRUCTOR [address] [place] [address] Nurse Practitioner Cardiovascular Disease 09/09/21 Rich Barrett MD [address] [place] 230645 Physician Ophthalmology 01/21/22 Neil Kent MD 500 [place], [place] 18[address] Dermatology 02/24/22 Diana Desir, [facility] [address] [place], [place] 390726 Assigned MTM Pharmacist 04/07/22 Livan Sharif MD [address] [place] [id number] Cardiovascular Disease 05/14/22 Catherine Cm MD [address] [place] 745785 Cardiovascular Disease 07/21/22 Valery Veronica, PA-C [address] [place], [place] 058565 Physician Computer Animator Dermatology 07/21/22 Brea Quinn APRN HEALTH AND FITNESS INSTRUCTOR 500 [place] [address] Nurse Practitioner Dermatology 09/21/22 Radha Lomeli APRN HEALTH AND FITNESS INSTRUCTOR [address] [place] [id number] Assigned Heart and Vascular Provider 05/28/23 Jelena David OD [address] [facility] [place] [address] Ophthalmology 06/15/23 Esha Grimm PA-C [address] [place] [phone] Assigned PCP 07/16/23 Valery Veronica PA-C [address] [place] [address] 268365 Physician Computer Animator Dermatology 09/19/23 Rey Tay MD [address] [place] [address] [phone] MD Gastroenterology 09/20/23 Rocky Zepeda DO [address] [place] [address] 740725 Physician Gastroenterology 09/20/23 Philip Dumont MD [address] [place] [address] 111185 Physician Ophthalmology 09/22/23 Meredith Carrera PA-C [address] [place] [address] 963345 Assigned Gastroenterology Provider 11/01/23 Neil Kent MD [address] [address] Dermatology 11/02/23 [place] [address] [address] [facility] [address] Neurological Surgery 12/26/23 Audrey Waite PA-C [address] [place] [address] Physician Computer Animator Dermatology 02/28/24 Valery Veronica PA-C [address] [place] [address] Physician Computer Animator Dermatology 04/10/24 Herminia Hatch MD [address] [place] [address] Assigned Rheumatology Provider 07/02/24 Jelena David OD [address] [place] [address] [place] [address] MD Ophthalmology 08/30/24 [place] [address] [place] [address] Assigned Neuroscience Provider 09/30/24 Maru Man PA-C [address] [place] [address] Physician Computer Animator Dermatology 10/03/24 Maru Man PA-C [address] [place] [address] Physician Computer Animator Dermatology 10/22/24 Jelena David OD [address] [place] [address] [place] [address] Assigned Surgical Provider 10/31/24 documented as of this encounter
--- OUTSIDE RECORDS SUMMARY | 2024-11-21 04:14 | XMS_ITS | Encounter Summary ---
Author Organization [facility] Address [address] [place] [address] Care Team Providers Care Drone Pilot Name Role Phone Lita Oseguera Unavailable Unavailable Marija Edgar APRN SPECIAL FORCES MEDICAL SERGEANT Primary Care Provider + Marija Edgar APRN SPECIAL FORCES MEDICAL SERGEANT Unavailable Keisha Dotson MD Unavailable Galo Burrell MD Unavailable Unavailable Diana Desir [facility] Unavailable Rain Galaviz PA-C Unavailable Summer Lara MD Unavailable [phone] Tavia Wyatt MD Unavailable Johnny Murillo MD Unavailable Erica Farrell APRN SPECIAL FORCES MEDICAL SERGEANT Unavailable Tavia Wyatt MD Unavailable Diana Desir [facility] Unavailable Rich Barrett MD Unavailable [phone] Neil Kent MD Unavailable Roney Story DPM Unavailable Erica Farrell APRN SPECIAL FORCES MEDICAL SERGEANT Unavailable Diana Desir [facility] Unavailable [phone] Jelena David OD Unavailable [phone] Galo Burrell MD Unavailable Unavailable HoLivan MD Unavailable Livan Sharif MD Unavailable IsCatherine hobbs MD Unavailable + Valery Veronica PA-C Unavailable [phone] Catherine Cm MD Unavailable + Johnny Murillo MD Unavailable [phone] Brea Quinn [employer] MEDICAL SERGEANT Unavailable [phone] Brea Quinn [employer] MEDICAL SERGEANT Unavailable [phone] Jose Francisco Johnson MD Unavailable Livan Sharif MD Unavailable + IsCatherine boothe MD Unavailable + Sydnie Martinez RN Unavailable Unavailable Alfonso Renteria MD Unavailable Esha Grimm PA-C Primary Care Provider Cheng Todd PA-C Unavailable Radha Lomeli [employer] MEDICAL SERGEANT Unavailable [phone] Jelena David OD Unavailable Pao Joseph RN Unavailable Unavailable Esha Grimm PA-C Unavailable [phone] Valery Veronica PA-C Unavailable [phone] Rey Tay MD Unavailable Rocky Zepeda DO Unavailable Philip Dumont MD Unavailable [phone] Meredith Carrera PA-C Unavailable Neil Kent MD Unavailable Juan Pablo Emmanuel MD Unavailable [phone] Adurey Waite-C Unavailable [phone] Valery VeronicaC Unavailable [phone] Herminia Hatch MD Unavailable Jelena David OD Unavailable Juan Pablo Emmanuel MD Unavailable [phone] Maur Man PA-C Unavailable [phone] Maru Man PA-C Unavailable [phone] Jelena David OD Unavailable Encounter Details Date Type Department Care Team (Late st Contact Info) Description 03/09/2022 [facility]ice [address] [address] Abby Dye Social History Tobacco [...] How often do you attend religious or advent serv ices? Never 09/22/2021 Do [...] Date Recorded PHQ-2 Score 2 12/18/2021 [facility] [...] in a fpc (including now)? No 09/22/2021 [place] Depression Scale Answer Date Recorded [place] Depression Score 5 01/14/2021 Last EPDS Self [...] Description 11/21/2024 7:00 AM CDT Office Visit [facility] [address] [address] Maru Man PA-C [address] [address] 12/20/2024 2:30 PM CDT Office Visit [address] [phone] Esha Grimm PA-C [address] [place] [address] 04/16/2025 11:00 AM CDT Virtual Visit [facility] [address] 4th [place] [phone] Meredith Carrera PA-C 909 [place] [address] documented as of this encounter Visit Diagnoses Not on filedocumented in this encounter Additional Health Concerns Infection Onset Date Last Indicated Resolved Time Rule Out COVID-19 04/26/2022 04/26/2022 04/26/2022 6:47 AM CDT Rule Out COVID-19 05/17/2022 05/17/2022 05/17/2022 10:20 PM CONTRACTS ATTORNEY Rule Out COVID-19 06/09/2022 06/09/2022 06/09/2022 9:35 AM CONTRACTS ATTORNEY COVID-19 06/09/2022 06/09/2022 06/30/2022 11:4 1 PM CONTRACTS ATTORNEY Rule Out COVID-19 11/10/2022 11/10/2022 11/11/2022 [...] documented as of this encounter Care Teams Drone Pilot Relationship Specialty Start Date End Date Marija Edgar APRN SPECIAL FORCES MEDICAL SERGEANT PCP - General Nurse Practitioner 04/30/20 04/14/23 Esha Grimm PA-C [address] [place] [phone] PCP - General Family Medicine 05/04/23 Lita Oseguera Personal Advocate & Liaison (PAL) 02/28/20 03/27/23 Marija Edgar APRN [employer] FORCES MEDICAL SERGEANT Assigned PCP 06/08/20 04/29/23 Keisha Dotson MD [address] [place], [place] 430435 Assigned Neuroscience Provider 06/04/20 04/01/23 Galo Burrell MD Assigned Heart and Vascular Provider 10/05/20 04/02/22 Diana Desir, [facility] [address] [place] [address] Pharmacist Pharmacist 04/17/21 Rain Galaviz PA-C [address] [place] [address] [place] [address] Physician Runner On Dermatology 04/28/21 Summer Lara MD [address] [place] [address] Assigned OBGYN Provider 05/31/21 2 Tavia Wyatt MD [address] [place] [address] Dermatology 07/14/21 Johnny Murillo MD [address] [place] [address] Assigned Musculoskeletal Provider 08/30/21 03/17/22 Erica Farrell APRN SPECIAL FORCES MEDICAL SERGEANT [address] [facility] [address] [place] [address] Nurse Practitioner Cardiovascular Disease 09/09/21 Tavia Wyatt MD [address] [place] [address] Assigned Surgical Provider 11/29/21 05/07/[address] [facility] [address] [place] [address] Assigned MTM Pharmacist 01/02/22 Rich Barrett MD [address] [place] [address] Physician Ophthalmology 01/21/22 Neil Kent MD 500 [place] [address] Dermatology 02/24/22 [place] Story DPM [address] [facility] [address] [place], [place] 936387 Assigned Musculoskeletal Provider 03/20/22 08/13/22 Erica Farrell APRN [employer] MEDICAL SERGEANT 1700 [place] [address] Assigned Heart and Vascular Provider 04/03/22 04/16/22 Diana Desir, [facility] [address] [place] [address] Assigned MTM Pharmacist 04/07/22 Jelena David OD [address] [place] [address] Assigned Surgical Provider 05/08/22 10/08/22 Galo Burrell MD Assigned Heart and Vascular Provider 04/17/22 06/11/22 Livan Sharif MD [address] [place] [address] Cardiovascular Disease 05/14/22 Livan Sharif MD [address] [place] 701835 Assigned Heart and Vascular Provider 06/12/22 07/23/22 Catherine Cm MD [address] [place] 9[address]145 Cardiovascular Disease 07/21/22 Valery Veronica PA-C [address] [place], [place] 919585 Physician Runner On Dermatology 07/21/22 Catherine Cm MD [address] [place] 612245 Assigned Heart and Vascular Provider 07/24/22 11/05/22 Johnny Murillo MD [address] [address] Assigned Musculoskeletal Provider 08/14/22 10/08/22 Brea Quinn APRN SPECIAL FORCES MEDICAL SERGEANT 500 [place] [address] Nurse Practitioner Dermatology 09/21/22 Brea Quinn APRN [employer] FORCES MEDICAL SERGEANT [address] [place] [address] Assigned Surgical Provider 10/09/22 05/01/24 [place] [address] [facility] [address] [place] [address] Assigned Musculoskeletal Provider 10/09/22 05/01/24 Livan Sharif MD [address] [facility] [address] [place] [address] Assigned Heart and Vascular Provider 11/06/22 11/12/22 Catherine Cm MD [address] [facility] [address] [place] [address] Assigned Heart and Vascular Provider 11/13/22 05/27/23 Sydnie Martinez, VJ Personal Advocate & Liaison (PAL) Family Medicine 03/28/23 07/31/23 Alfonso Renteria MD [address] [facility] 200 [place], [place] 386506 Assigned Neuroscience Provider 04/02/23 09/29/24 Cheng Todd PA-C [address] [place] [address] Assigned PCP 04/30/23 07/15/23 Radha Lomeli APRN SPECIAL FORCES MEDICAL SERGEANT 6[address] [facility] [address] [place] [address] Assigned Heart and Vascular Provider 05/28/23 Jelena David OD [address] [place] [address] MD Ophthalmology 06/15/23 Pao Joseph, VJ Personal Advocate & Liaison (PAL) Nurse 08/01/23 11/07/23 Esha Grimm PA-C [address] [place] [address] Assigned PCP 07/16/23 Valery Veronica PA-C [address] [place] [address] 377765 Physician Runner On Dermatology 09/19/23 Rey Tay MD [address] [place] [address] 551385 Gastroenterology 09/20/23 Rocky Zepeda DO [address] [place] [address] 912255 Physician Gastroenterology 09/20/23 Philip Dumont MD [address] [place] [address] 407695 Physician Ophthalmology 09/22/23 Meredith Carrera PA-C [address] [place] [address] Assigned Gastroenterology Provider 11/01/23 Neil Kent MD [address] 927500 Dermatology 11/02/23 [place] [address] [facility] [place], [place] [phone] Neurological Surgery 12/26/23 Audrey Waite PA-C [address] [place] [address] Physician Runner On Dermatology 02/28/24 Valery Veronica PA-C [address]442 [address] [place] [address] 480979 Physician Runner On Dermatology 04/10/[address] [facility]5 [place], [place] 50245125 Assigned Rheumatology Provider 07/02/24 [place] [address] [place] [address] [place] [address] Ophthalmology 08/30/24 [place] [address] [place] [address] Assigned Neuroscience Provider 09/30/24 Maru Man PA-C [address] [place] [address] Physician Runner On Dermatology 10/03/24 Maru Man PA-C [address] [place] [address] Physician Runner On Dermatology 10/22/24 Jelean David OD [address] [place] [address] [place] [address] Assigned Surgical Provider 10/31/24 documented as of this encounter
--- OUTSIDE RECORDS SUMMARY | 2024-11-21 04:14 | XMS_ITS | Encounter Summary ---
Author Organization [facility] Address [address] [place] [address] Care Team Providers Care Wharf Tender Head Name Role Phone Lita Oseguera Unavailable Unavailable Marija Edgar APRN AIR CHIEF MARSHAL Primary Care Provider + Marija Edgar APRN AIR CHIEF MARSHAL Unavailable Keisha Dotson MD Unavailable Galo Burrell MD Unavailable Unavailable Diana Desir [facility] Unavailable [phone] Rain Galaviz PA-C Unavailable Summer Lara MD Unavailable [phone] Tavia Wyatt MD Unavailable Johnny Murillo MD Unavailable Erica Farrell APRN AIR CHIEF MARSHAL Unavailable Tavia Wyatt MD Unavailable Diana Desir [facility] Unavailable Rich Barrett MD Unavailable [phone] Neil Kent MD Unavailable Roney Story DPM Unavailable Erica Farrell APRN AIR CHIEF MARSHAL Unavailable Diana Desir [facility] Unavailable [phone] Jelena David OD Unavailable [phone] Galo Burrell MD Unavailable Unavailable HoLivan MD Unavailable Livan Sharif MD Unavailable IsCatherine hobbs MD Unavailable + Valery Veronica PA-C Unavailable [phone] Catherine Cm MD Unavailable + Johnny Murillo MD Unavailable [phone] Brea Quinn POLICE OFFICER AIR CHIEF MARSHAL Unavailable [phone] Brea Quinn POLICE OFFICER AIR CHIEF MARSHAL Unavailable [phone] Jose Francisco Johnson MD Unavailable Livan Sharif MD Unavailable + IsCatherine boothe MD Unavailable + Sydnie Martinez RN Unavailable Unavailable Alfonso Renteria MD Unavailable Esha Grimm PA-C Primary Care Provider Cheng Todd PA-C Unavailable Radha Lomeli POLICE OFFICER AIR CHIEF MARSHAL Unavailable [phone] Jelena David OD Unavailable Pao Joseph RN Unavailable Unavailable Esha Grimm PA-C Unavailable [phone] Valery Veronica PA-C Unavailable [phone] Rey Tay MD Unavailable Rocky Zepeda DO Unavailable Philip Dumont MD Unavailable [phone] Meredith Carrera PA-C Unavailable Neil Kent MD Unavailable Juan Pablo Emmanuel MD Unavailable [phone] Audrey Waite-C Unavailable [phone] Valery VeronicaC Unavailable [phone] Herminia Hatch MD Unavailable Jelena David OD Unavailable [phone] Juan Pablo Emmanuel MD Unavailable [phone] Maru Man PA-C Unavailable [phone] Maru Man PA-C Unavailable [phone] Jelena David OD Unavailable [phone] Encounter Details Date Type Department Care Team (Late st Contact Info) Description 12/03/2021 [facility] [address] [address] Debbie Hdez MA Social History [...] How often do you attend confucianism or sikhism serv ices? Never 09/22/2021 Do [...] Date Recorded PHQ-2 Score 2 09/22/2021 [facility] of Occupat [...] in a residential (including now)? No 09/22/2021 Willmar Depression Scale Answer Date Recorded Willmar Depression Score 5 01/14/2021 Last EPDS Self Harm Result Not on file 01/14 Education Answer Date Recorded What is the highest level of school you have completed or the highest degree you have received? 12th grade 08/07/2020 Comments No Sex and Gender Information Value Date Recorded Sex Assigned at Female 03/02/2021 5:45 PM CDT Legal Sex Female 4:13 AM ACID CORRECTION HAND Gender Identity Female 03/02/2021 5:45 PM [...] AM CDT Office Visit [facility] [address] [address] Maru Man PA-C [address] [address] 12/20/2024 2:30 PM CDT Office Visit [address] [phone] Esha Grimm PA-C [address] [place] [address] 04/16/2025 11:00 AM CDT Virtual Visit [facility] [address] [place] [phone] Meredith Carrera PA-C [address] [place] [address] documented as of this encounter Visit Diagnoses Not on filedocumented in this encounter Additional Health Concerns Infection Onset Date Last Indicated Resolved Time Rule Out COVID-19 12/18/2021 12/18/2021 12/19/2021 11:34 AM CDT Rule Out COVID-19 02/24/2022 02/24/2022 02/25/2022 1:08 PM CDT Rule Out COVID-19 04/26/2022 04/26/2022 04/26/2022 6:47 AM CDT Rule Out COVID-19 05/17/2022 05/17/2022 05/17/2022 10:20 PM ACID CORRECTION HAND Rule Out COVID-19 06/09/2022 06/09/2022 06/09/2022 9:35 AM ACID CORRECTION HAND COVID-19 06/09/2022 06/09/2022 06/30/2022 11:4 1 PM ACID CORRECTION HAND Rule Out COVID-19 11/10/2022 11/10/2022 11/11/2022 [...] documented as of this encounter Care Teams Wharf Tender Head Relationship Specialty Start Date End Date Marija Edgar APRN AIR CHIEF MARSHAL PCP - General Nurse Practitioner 04/30/20 04/14/23 Esha Grimm PA-C [address] [place] [phone] PCP - General Family Medicine 05/04/23 Lita Oseguera Personal Advocate & Liaison (PAL) 02/28/20 03/27/23 Marija Edgar APRN AIR CHIEF MARSHAL Assigned PCP 06/08/20 04/29/23 Keisha Dotson MD 909 [place], [place] [phone] Assigned Neuroscience Provider 06/04/20 04/01/23 Galo Burrell MD Assigned Heart and Vascular Provider 10/05/20 04/02/22 [facility] [address] [place] [address] Pharmacist Pharmacist 04/17/21 Rain Galaviz PA-C [address] [place] [address] [place] [address] Physician Boat Cleaning Supervisor Dermatology 04/28/21 Summer Lara MD [address] [place] [address] Assigned OBGYN Provider 05/31/21 2 Tavia Wyatt MD [address] [place] [address] Dermatology 07/14/21 Johnny Murillo MD [address] [facility] [address] [place] [address] Assigned Musculoskeletal Provider 08/30/21 03/17/22 Erica Farrell APRN AIR CHIEF MARSHAL [address] [facility] [address] [place] [address] Nurse Practitioner Cardiovascular Disease 09/09/21 Tavia Wyatt MD [address] [place] [address] Assigned Surgical Provider 11/29/21 05/07/22 [facility] 3033 [place] [address] Assigned MTM Pharmacist 01/02/22 Rich Barrett MD 3033 [place] [address] Physician Ophthalmology 01/21/22 Neil Kent MD 500 [place] [address] Dermatology 02/24/22 Roney Story DPM [address] [address] Assigned Musculoskeletal Provider 03/20/22 08/13/22 Erica Farrell APRN CNP 1700 [place] [address] Assigned Heart and Vascular Provider 04/03/22 04/16/22 [facility] 3033 [place] [address] Assigned MTM Pharmacist 04/07/22 Jelena David OD [address] [place] [address] Assigned Surgical Provider 05/08/22 10/08/22 Galo Burrell MD Assigned Heart and Vascular Provider 04/17/22 06/11/22 Livan Sharif MD [address] [place], [place] 428935 Cardiovascular Disease 05/14/22 Livan Sharif MD [address] [place] [address] Assigned Heart and Vascular Provider 06/12/22 07/23/22 Catherine Cm MD [address] [place] [address] Cardiovascular Disease 07/21/22 Valery Veronica, PAUcheC 909 [place], [place] 476535 Physician Boat Cleaning Supervisor Dermatology 07/21/22 Catherine Cm MD [address] [address] [place] [address] Assigned Heart and Vascular Provider 07/24/22 11/05/22 Johnny Murillo MD [address] [place] [address] 424774 Assigned Musculoskeletal Provider 08/14/22 10/08/22 Brea Quinn APRN AIR CHIEF MARSHAL [address] [place] [address] 454505 Nurse Practitioner Dermatology 09/21/22 Brea Quinn APRN AIR CHIEF MARSHAL [address] [place] [address] [place] [address] Assigned Surgical Provider 10/09/22 05/01/24 [place] [address] [place] [address] Assigned Musculoskeletal Provider 10/09/22 05/01/24 Livan Sharif MD [address] [address] [place] [address] Assigned Heart and Vascular Provider 11/06/22 11/12/22 Catherine Cm MD [address] [address] [place] [address] Assigned Heart and Vascular Provider 11/13/22 05/27/23 Sydnie Martinez RN Personal Advocate & Liaison (PAL) Family Medicine 03/28/23 07/31/23 Alfonso Renteria MD [address] [facility] [address] 200 [place] [address] Assigned Neuroscience Provider 04/02/23 09/29/24 Cheng Todd PA-C [address] [place] [address] [id number] Assigned PCP 04/30/23 07/15/23 Radha Lomeli APRN AIR CHIEF MARSHAL [address] [facility] [address] [place], [place] 071085 Assigned Heart and Vascular Provider 05/28/23 Jelena David OD [address] [place] [address] Ophthalmology 06/15/23 Pao Joseph, RN Personal Advocate & Liaison (PAL) Nurse 08/01/23 11/07/23 Esha Grimm PA-C [address] [place] [phone] Assigned PCP 07/16/23 Vlaery Veronica PA-C [address] [place] [address] 465325 Physician Boat Cleaning Supervisor Dermatology 09/19/23 Rey Tay MD [address] [place] [address] 874805 Gastroenterology 09/20/23 Rocky Zepeda DO [address] [place] [address] [phone] Physician Gastroenterology 09/20/23 Philip Dumont MD 516 [place], [place] 496945 Physician Ophthalmology 09/22/23 Meredith Carrera PA-C [address] [place] [address] 137815 Assigned Gastroenterology Provider 11/01/23 Neil Kent MD [address] 29[address] MD Dermatology 11/02/23 [place] [address] [place], [place] 102707 Neurological Surgery 12/26/23 Audrey Waite PA-C 500 [place], [place] 184075 Physician Boat Cleaning Supervisor Dermatology 02/28/24 Valery Veronica PA-C [address] [address] [address] Physician Boat Cleaning Supervisor Dermatology 04/10/24 Herminia Hatch MD [facility]5 [place], [place] [phone] Assigned Rheumatology Provider 07/02/24 [place] [address] [place] [address] [place] [address] Ophthalmology 08/30/24 [place] [address] [place] [address] Assigned Neuroscience Provider 09/30/24 Maru Man PA-C [address] [place] [address] Physician Boat Cleaning Supervisor Dermatology 10/03/24 Maru Man PA-C [address] [place] [address] Physician Boat Cleaning Supervisor Dermatology 10/22/24 Jelena David OD [address] [facility] [place] [address] Assigned Surgical Provider 10/31/24 documented as of this encounter
--- OUTSIDE RECORDS SUMMARY | 2024-11-21 04:14 | XMS_ITS | Encounter Summary ---
Author Organization [place] Address [address] [place] [address] Care Team Providers Care Ticket Broker Name Role Phone Lita Oseguera Unavailable Unavailable Marija Edgar APRN LOFT WORKER HEAD Primary Care Provider + Chanelle Mccann APRN CNM Unavailab le Kyara De La Fuente RN Unavailable [phone] Marija Edgar APRN LOFT WORKER HEAD Unavailable Mynor Broussard MD Unavailable [phone] Keisha Dotson MD Unavailable [phone] Stacey Briones RECEPTIONIST CLERK Unavailable Lesley Guillermo CHW Unavailable Mary Mejia Unavailable Unavailable Lita Oseguera Unavailable Unavailable Galo Burrell MD Unavailable Unavailable Cristina Wood Unavailable Lesley Guillermo CHW Unavailable Meredith Bedoya Unavailable Unavailable Cristina Wood Unavailable Diana Desir [facility] Unavailable [phone] Rain Galaviz PA-C Unavailable Summer Lara MD Unavailable [phone] Summer Lara MD Unavailable [phone] Summer Lara MD Unavailable [phone] Tavia Wyatt MD Unavailable [phone] Johnny Murillo MD Unavailable [phone] Erica Farrell TRANSPORTATION SECURITY SCREENER LOFT WORKER HEAD Unavailable Vikas Teresitakaren Watson [facility] Unavailable Tavia Wyatt MD Unavailable [phone] Diana Desir [facility] Unavailable [phone] Rich Barrett MD Unavailable Neil Kent MD Unavailable Roney StoryM Unavailable Erica Farrell TRANSPORTATION SECURITY SCREENER LOFT WORKER HEAD Unavailable Diana Desir [facility] Unavailable [phone] Jelena David OD Unavailable Galo Burrell MD Unavailable Unavailable Livan Sharif MD Unavailable Livan Sharif MD Unavailable Catherine Cm MD Unavailable + Valery Veronica PA-C Unavailable [phone] Catherine Cm MD Unavailable + Johnny Murillo MD Unavailable [phone] Quinn APRN LOFT WORKER HEAD Unavailable [phone] Brea Quinn APRN LOFT WORKER HEAD Unavailable [phone] Jose Francisco Johnson MD Unavailable Livan Sharif MD Unavailable + Catherine Cm MD Unavailable + Sydnie Martinez RN Unavailable Unavailable Alfonso Renteria MD Unavailable [phone] Esha Grimm PA-C Primary Care Provider Perez Chengjc Fish PA-C Unavailable Armani Radha Stovall ARLENE GRANADOS Unavailable Jelena David OD Unavailable Pao Joseph RN Unavailable Unavailable Esha Grimm PA-C Unavailable [phone] Valery Veronica PA-C Unavailable Rey Tay MD Unavailable Rocky Zepeda DO Unavailable Philip Dumont MD Unavailable Meredith Carrera PA-C Unavailable [phone] Neil Kent MD Unavailable Juan Pablo Emmanuel MD Unavailable Audrey Waite PA-C Unavailable Valery Veronica PA-C Unavailable Herminia Hatch MD Unavailable Jelena David OD Unavailable Juan Pablo Emmanuel MD Unavailable Maru Man PA-C Unavailable Maru Man PA-C Unavailable [phone] Jelena David OD Unavailable Reason for Visit * Reason Onset Date Comments Patient/info Update 08/31/2020 appointment request Encounter Details Date Type Department Care Team (Late st Contact Info) Description 08/31/2020 MyC Medical Advice [address] [address] Marija Edgar APRN [facility] [address] [facility] [place] [address] Patient/info Update (appointment request ) Social [...] Score 0 08/12/2020 [facility] - Occupational Stress Questionnaire Answer [...] PM CDT Legal Sex Female 4:13 AM PATTERN PUNCHER Gender Identity Female 03/02/2021 5:45 PM CDT Sexual Orientation Straight 02/28/2020 12 :51 AM CDT COVID-19 Exposure Response Date Recorded In the last month, have you been in contact with someone who was confirmed or suspected to have Coronavirus / COVID-19? No / Unsure 09/03/2020 12:11 PM PATTERN PUNCHER documented as of this encounter Miscellaneous Notes * Telephone Encounter - Maryjane Mccallum RN - 09/01/2020 7:21 AM PATTERN PUNCHER Patient sent message requesting office visit with [...] Office Visit with Marija Edgar APRN CNP [facility] ([facility] ) [address] [facility] [phone] Maryjane Mccallum Registered Nurse [facility] ERN PUNCHER documented in this encounter Plan of Treatment Upcoming Encounters Date Type Department Care Team (Late st Contact Info) Description 11/21/2024 7:00 AM CDT Office Visit [facility] [address] [phone] Maru Man PA-C [address] [address] 12/20/2024 2:30 PM CDT Office Visit [facility] [address] [place] [address] Esha Grimm PA-C [address] [place] [address] 04/16/2025 11:00 AM CDT Virtual Visit [facility] [address]th [place] [phone] Meredith Carrera PA-C [address] [place] [address] 239175 documented as of this encounter Visit Diagnoses Not on filedocumented in this encounter Additional Health Concerns Infection Onset Date Last Indicated Resolved Time Rule Out COVID-19 09/24/2020 09/24/2020 09/24/2020 9:24 AM CDT Rule Out COVID-19 11/05/2020 11/05/2020 11/06/2020 1:09 PM CDT Rule Out COVID-19 05/11/2021 05/11/2021 05/13/2021 10:18 AM CDT Rule Out COVID-19 07/13/2021 07/13/2021 07/14/2021 3:04 PM PATTERN PUNCHER Rule Out COVID-19 07/18/2021 07/18/2021 07/20/2021 1:56 PM PATTERN PUNCHER COVID-19 07/18/2021 07/18/2021 08/08/2021 11:3 9 PM PATTERN PUNCHER Rule Out COVID-19 12/18/2021 12/18/2021 12/19/2021 11:34 AM CDT Rule Out COVID-19 02/24/2022 02/24/2022 02/25/2022 1:08 PM CDT Rule Out COVID-19 04/26/2022 04/26/2022 04/26/2022 6:47 AM CDT Rule Out COVID-19 05/17/2022 05/17/2022 05/17/2022 10:20 PM PATTERN PUNCHER Rule Out COVID-19 06/09/2022 06/09/2022 06/09/2022 9:35 AM PATTERN PUNCHER COVID-19 06/09/2022 06/09/2022 06/30/2022 11:4 1 PM PATTERN PUNCHER Rule Out COVID-19 11/10/2022 11/10/2022 11/11/2022 12:17 PM CDT Rule Out COVID-19 03/07/2023 03/07/2023 03/07/2023 1:20 PM CDT Rule Out COVID-19 12/26/2023 12/26/2023 12/26/2023 9:50 AM CDT Rule Out COVID-19 04/09/2024 04/09/2024 04/10/2024 6:48 PM CDT Rule Out COVID-19 10/04/2024 10/04/2024 10/05/2024 9:42 AM CDT Rule Out COVID-19 11/20/2024 11/20/2024 Assessment Noted Time PHQ-9 Depression Total Score: 9 06/25/20 20 7:04 AM PATTERN PUNCHER documented as of this encounter Care Teams Ticket Broker Relationship Specialty Start Date End Date Marija Edgar APRN LOFT WORKER HEAD PCP - General Nurse Practitioner 04/30/20 04/14/23 Esha Grimm PA-C [address] [place] [phone] PCP - General Family Medicine 05/04/23 Lita Oseguera Personal Advocate & Liaison (PAL) 02/28/20 03/27/23 Chanelle Mccann APRN CNM [address] [place] [address] Assigned OBGYN Provider 05/02/2005/09 Kyara De La Fuente, VJ Specialty Vice President Of Manufacturing Neurology 06/04/20 03/05/21 Marija Edgar APRN LOFT WORKER HEAD Assigned PCP 06/08/20 04/29/23 Mynor Broussard MD [address] 015325 Assigned Surgical Provider 06/01/20 11/28/21 Keisha Dotson MD 909 [place] [address] Assigned Neuroscience Provider 06/04/20 04/01/23 Stacey Briones, [facility] Lead Vice President Of Manufacturing Primary Care - CC 08/11/2012/30 Lesley Guillermo, [facility] Community Health Worker 08/11/2010/01 Mary Mejia Financial Resource Worker 09/02/20 10/06/20 Lita Oseguera Personal Advocate & Liaison (PAL) Family Medicine 09/10/20 09/21/20 Galo Burrell MD Assigned Heart and Vascular Provider 10/05/20 04/02/22 Cristina Wood Financial Resource Worker 10/07/20 10/14/20 Lesley Guillermo, [facility] Community Health Worker 10/23/2012/30 Meredith Bedoya Financial Resource Worker 10/23/20 11/23/20 Cristina Wood Financial Resource Worker 02/09/21 02/09/21 Diana Desir, [facility] 3033 [place] [address] Pharmacist Pharmacist 04/17/21 Rain Galaviz PA-C [address] [place] [address] [place] [address] Physician Stonework Tracer Dermatology 04/28/21 Summer Lara MD [address] [place] [address] Assigned OBGYN Provider 05/10/2105/23 Summer Lara MD [address] [place] [address] Assigned OBGYN Provider 05/31/21 Summer Lara MD [address] [place] [address] Assigned OBGYN Provider 05/24/2105/30 Tavia Wyatt MD [address] [place] [address] Dermatology 07/14/21 Johnny Murillo MD [facility] [address] [place] [address] Assigned Musculoskeletal Provider 08/30/21 03/17/22 Erica Farrell APRN LOFT WORKER HEAD [address] [facility] [address] [place] [address] Nurse Practitioner Cardiovascular Disease 09/09/21 Teresita Bean, [facility] [address] [place] [phone] Pharmacist Pharmacist 09/24/21 09/29/21 Tavia Wyatt MD [address] [place] [address] Assigned Surgical Provider 11/29/21 05/07/22 Diana Desir [facility] [address] [place] [address] Assigned MTM Pharmacist 01/02/22 Rich Barrett MD [address] [place] [address] Physician Ophthalmology 01/21/22 Neil Kent MD [address] [place] [address] Dermatology 02/24/22 Roney Story DPM [address] [facility] 300 [place] [address] Assigned Musculoskeletal Provider 03/20/22 08/13/22 Erica Farrell APRN LOFT WORKER HEAD 1700 [place] [address] Assigned Heart and Vascular Provider 04/03/22 04/16/22 Diana Desir [facility] [address] [place] [address] Assigned MTM Pharmacist 04/07/22 Jelena David OD [address] [place] [place] [address] Assigned Surgical Provider 05/08/22 10/08/22 Galo Burrell MD Assigned Heart and Vascular Provider 04/17/22 06/11/22 Livan Sharif MD [address] [place] [address] Cardiovascular Disease 05/14/22 Livan Shairf MD [address] [place] [address] Assigned Heart and Vascular Provider 06/12/22 07/23/22 Catherine Cm MD [address] [place] [address] Cardiovascular Disease 07/21/22 Valery Veronica, PAUcheC [address] [place] [address] 570615 Physician Stonework Tracer Dermatology 07/21/22 Catherine Cm MD [address] [place], [place] 848965 Assigned Heart and Vascular Provider 07/24/22 11/05/22 Johnny Murillo MD [facility] [address] 725654 Assigned Musculoskeletal Provider 08/14/22 10/08/22 Brea Quinn APRN LOFT WORKER HEAD [address] [place] [address] 175735 Nurse Practitioner Dermatology 09/21/22 Brea Quinn APRN LOFT WORKER HEAD 6401 [facility] [place] [address] Assigned Surgical Provider 10/09/22 05/01/24 [place] [address] [address] Assigned Musculoskeletal Provider 10/09/22 05/01/24 Livan Sharif MD [address] [facility]00 [place] [address] Assigned Heart and Vascular Provider 11/06/22 11/12/22 Catherine Cm MD [address] [facility] [place] [address] Assigned Heart and Vascular Provider 11/13/22 05/27/23 Sydnie Martinez, RN Personal Advocate & Liaison (PAL) Family Medicine 03/28/23 07/31/23 Alfonso Renteria MD 57[address] [facility] 200 [place] [address] Assigned Neuroscience Provider 04/02/23 09/29/24 Cheng Todd PA-C [address] [place] [address] [phone] Assigned PCP 04/30/23 07/15/23 Radha Lomeli APRN LOFT WORKER HEAD [address] [place] [address] Assigned Heart and Vascular Provider 05/28/23 Jelena David OD [address] [place] [address] MD Ophthalmology 06/15/23 Pao Joseph, RN Personal Advocate & Liaison (PAL) Nurse 08/01/23 11/07/23 Esha Grimm PA-C [address] [place] [phone] Assigned PCP 07/16/23 Valery Veronica PA-C [address] [place] [address] 444735 Physician Stonework Tracer Dermatology 09/19/23 Rey Tay MD [address] [place] [address] 139675 MD Gastroenterology 09/20/23 Rocky Zepeda DO [address] [place] [address] 123195 Physician Gastroenterology 09/20/23 Philip Dumont MD [address] [place] [address] 530715 Physician Ophthalmology 09/22/23 Meredith Carrera PA-C [address] [place] [address] 814045 Assigned Gastroenterology Provider 11/01/23 Neil Kent MD [address] [address] Dermatology 11/02/23 [place] [address] [place] [address] Neurological Surgery 12/26/23 Audrey Waite PA-C [address] [place] [address] Physician Stonework Tracer Dermatology 02/28/24 Valery Veronica PA-C 128277 [address] [place] [address] Physician Stonework Tracer Dermatology 04/10/24 Herminia Hatch MD [address] [place] [address] [phone] Assigned Rheumatology Provider 07/02/24 Jelena David, SONJA [address] [place] [address] [place] [address] Ophthalmology 08/30/24 [place] [address] [place] [address] Assigned Neuroscience Provider 09/30/24 Maru Man PA-C [address] [place] [address] Physician Stonework Tracer Dermatology 10/03/24 Maru Man PA-C [address] [place] [address] Physician Stonework Tracer Dermatology 10/22/24 Jelena David OD [address] [place] [address] [place] [address] Assigned Surgical Provider 10/31/24 documented as of this encounter
--- OUTSIDE RECORDS SUMMARY | 2024-11-21 04:14 | XMS_ITS | Encounter Summary ---
Author Organization [facility] Address [address] [place] [address] Care Team Providers Care Plastics Patternmaker Name Role Phone Lita Oseguera Unavailable Unavailable Marija Edgar APRN SENIOR WEB ARCHITECT Primary Care Provider + Chanelle Mccann APRN CNM Unavailab le Kyara De La Fuente RN Unavailable Marija Edgar APRN SENIOR WEB ARCHITECT Unavailable Mynor Broussard MD Unavailable [phone] Keisha Dotson MD Unavailable Stacey Briones LAB TECHNOLOGIST Unavailable [phone] Lesley Guillermo CHW Unavailable Mary Mejia Unavailable Unavailable Lita Oseguera Unavailable Unavailable Galo Burrell MD Unavailable Unavailable Cristina Wood Unavailable Lesley Guillermo CHW Unavailable Meredith Bedoya Unavailable Unavailable Cristina Wood Unavailable Diana Desir [facility] Unavailable Rain Galaviz PA-C Unavailable Summer Lara MD Unavailable [phone] Summer Lara MD Unavailable [phone] Summer Lara MD Unavailable [phone] Tavia Wyatt MD Unavailable [phone] Johnny Murillo MD Unavailable [phone] Erica Farrell AUTOMATIC DRY STARCH OPERATOR SENIOR WEB ARCHITECT Unavailable Vikas Teresitakaren Watson [facility] Unavailable Tavia Wyatt MD Unavailable [phone] Diana Desir [facility] Unavailable [phone] Rich Barrett MD Unavailable Neil Kent MD Unavailable Roney StoryM Unavailable Erica Farrell AUTOMATIC DRY STARCH OPERATOR SENIOR WEB ARCHITECT Unavailable Diana Desir [facility] Unavailable [phone] Jelena David OD Unavailable Galo Burrell MD Unavailable Unavailable Livan Sharif MD Unavailable Livan Sharif MD Unavailable Catherine Cm MD Unavailable + Valery Veronica PA-C Unavailable [phone] Catherine Cm MD Unavailable + Johnny Murillo MD Unavailable +[phone] Brea Quinn APRN SENIOR WEB ARCHITECT Unavailable [phone] Brea Quinn APRN SENIOR WEB ARCHITECT Unavailable [phone] Jose Francisco Johnson MD Unavailable Livan Sharif MD Unavailable + Catherine Cm MD Unavailable + Sydnie Martinez RN Unavailable Unavailable Alfonso Renteria MD Unavailable [phone] Esha Grimm PA-C Primary Care Provider Cheng Todd PA-C Unavailable Armani Radha Sia JACOBS CNP Unavailable Jelena David OD Unavailable Pao Joseph RN Unavailable Unavailable Esha Grimm PA-C Unavailable [phone] Valery Veronica PA-C Unavailable Rey Tay MD Unavailable Rocky Zepeda DO Unavailable Philip Dumont MD Unavailable Meredith Carrera PA-C Unavailable Neil Kent MD Unavailable Juan Pablo Emmanuel MD Unavailable Audrey Waite PA-C Unavailable Valery Veronica PA-C Unavailable Herminia Hatch MD Unavailable Jelena David OD Unavailable Juan Pablo Emmanuel MD Unavailable Maru Man PA-C Unavailable [phone] Maru Man PA-C Unavailable Jelena David OD Unavailable Encounter Details Date Type Department Care Team (Late st Contact Info) Description 08/24/2020 [facility] [address] [address] Marija Edgar APRN SENIOR WEB ARCHITECT [address] [place] [address] Social History Tobacco Use Types Packs/Day [...] often do you attend [facility] or jehovah's witness services? More than 4 [...] Answer Date Recorded PHQ-2 Score 0 08/12/2020 [facility] of Occupat ional [...] CDT Legal Sex Female 4:13 AM SUPERVISOR FABRICATION AND ASSEMBLY Gender Identity Female 03/02/2021 5:45 PM CDT Sexual Orientation Straight 02/28/2020 12 :51 AM CDT COVID-19 Exposure Response Date Recorded In the last month, have you been in contact with someone who was confirmed or suspected to have Coronavirus / COVID-19? No / Unsure 08/20/2020 12:47 PM SUPERVISOR FABRICATION AND ASSEMBLY documented as of this encounter Miscellaneous Notes * Telephone Encounter - Marija Edgar APRN SENIOR WEB ARCHITECT - 08/25/2020 11:47 AM SUPERVISOR FABRICATION AND ASSEMBLY Replied via MyChart Marija Edgar APRN SENIOR WEB ARCHITECT on 08/25/2020 at 11:51 AM RVISOR FABRICATION AND ASSEMBLY documented in this encounter Plan of Treatment Upcoming Encounters Date Type Department Care Team (Late st Contact Info) Description 11/21/2024 7:00 AM CDT Office Visit [facility] [address] [phone] Maru Man PA-C [address] [place] [address] 12/20/2024 2:30 PM CDT Office Visit [facility] [address] [place] [phone] Esha Grimm PA-C [id number] [place] [address] 04/16/2025 11:00 AM CDT Virtual Visit [facility] [address] 4th [place] [phone] Meredith Carrera PA-C [address] [place] [address] [phone] (work) documented as of this encounter Visit Diagnoses Not on filedocumented in this encounter Additional Health Concerns Infection Onset Date Last Indicated Resolved Time Rule Out COVID-19 08/30/2020 08/30/2020 08/30/2020 5:05 PM SUPERVISOR FABRICATION AND ASSEMBLY Rule Out COVID-19 09/24/2020 09/24/2020 09/24/2020 9:24 AM CDT Rule Out COVID-19 11/05/2020 11/05/2020 11/06/2020 1:09 PM CDT Rule Out COVID-19 05/11/2021 05/11/2021 05/13/2021 10:18 AM CDT Rule Out COVID-19 07/13/2021 07/13/2021 07/14/2021 3:04 PM SUPERVISOR FABRICATION AND ASSEMBLY Rule Out COVID-19 07/18/2021 07/18/2021 07/20/2021 1:56 PM SUPERVISOR FABRICATION AND ASSEMBLY COVID-19 07/18/2021 07/18/2021 08/08/2021 11:3 9 PM SUPERVISOR FABRICATION AND ASSEMBLY Rule Out COVID-19 12/18/2021 12/18/2021 12/19/2021 11:34 AM CDT Rule Out COVID-19 02/24/2022 02/24/2022 02/25/2022 1:08 PM CDT Rule Out COVID-19 04/26/2022 04/26/2022 04/26/2022 6:47 AM CDT Rule Out COVID-19 05/17/2022 05/17/2022 05/17/2022 10:20 PM SUPERVISOR FABRICATION AND ASSEMBLY Rule Out COVID-19 06/09/2022 06/09/2022 06/09/2022 9:35 AM SUPERVISOR FABRICATION AND ASSEMBLY COVID-19 06/09/2022 06/09/2022 06/30/2022 11:4 1 PM SUPERVISOR FABRICATION AND ASSEMBLY Rule Out COVID-19 11/10/2022 11/10/2022 11/11/2022 12:17 PM CDT Rule Out COVID-19 03/07/2023 03/07/2023 03/07/2023 1:20 PM CDT Rule Out COVID-19 12/26/2023 12/26/2023 12/26/2023 9:50 AM CDT Rule Out COVID-19 04/09/2024 04/09/2024 04/10/2024 6:48 PM CDT Rule Out COVID-19 10/04/2024 10/04/2024 10/05/2024 9:42 AM CDT Rule Out COVID-19 11/20/2024 11/20/2024 Assessment Noted Time PHQ-9 Depression Total Score: 9 06/25/20 7:04 AM SUPERVISOR FABRICATION AND ASSEMBLY documented as of this encounter Care Teams Plastics Patternmaker Relationship Specialty Start Date End Date Marija Edgar APRN SENIOR WEB ARCHITECT PCP - General Nurse Practitioner 04/30/20 04/14/23 Esha Grimm PA-C [address] [place] [phone] PCP - General Family Medicine 05/04/23 Lita Oseguera Personal Advocate & Liaison (PAL) 02/28/20 03/27/23 Chanelle Mccann APRN CNM [address] [place] [address] 200 [place] [address] Assigned OBGYN Provider 05/02/2005/09 Kyara De La Fuente, RN Specialty Clinical Application Manager Neurology 06/04/20 03/05/21 Marija Edgar APRN SENIOR WEB ARCHITECT Assigned PCP 06/08/20 04/29/23 Mynor Broussard MD 6[address] [facility] 500 [place] [address] Assigned Surgical Provider 06/01/20 11/28/21 Keisha Dotson MD 909 [place], [place] 340525 Assigned Neuroscience Provider 06/04/20 04/01/23 Stacey Briones, [facility] Lead Clinical Application Manager Primary Care - CC 08/11/2012/30 Lesley Guillermo, [facility] Community Health Worker 08/11/2010/01 Mary Mejia Financial Resource Worker 09/02/20 10/06/20 Lita Oseguera Personal Advocate & Liaison (PAL) Family Medicine 09/10/20 09/21/20 Galo Burrell MD Assigned Heart and Vascular Provider 10/05/20 04/02/22 Cristina Wood Financial Resource Worker 10/07/20 10/14/20 Lesley Guillermo, [facility] Community Health Worker 10/23/2012/30 Meredith Bedoya Financial Resource Worker 10/23/20 11/23/20 Cristina Wood Financial Resource Worker 02/09/21 02/09/21 Diana Desir, [facility] [address] [place] [address] Pharmacist Pharmacist 04/17/21 Rain Galaviz PA-C [address] [place] [address] [facility] [place] [phone] Physician Sand Slinger Dermatology 04/28/21 Summer Lara MD [address] [place], [place] 946194 Assigned OBGYN Provider 05/10/2105/23 Summer Lara MD [address] [place] [address] [place], [place] 660224 Assigned OBGYN Provider 05/31/21 2 Summer Lara MD [address] [place] [address] 323714 Assigned OBGYN Provider 05/24/2105/30 Tavia Wyatt MD [address] [place] [address] 965644 Dermatology 07/14/21 Johnny Murillo MD [address] [facility] [address] [place] [address] Assigned Musculoskeletal Provider 08/30/21 03/17/22 Erica Farrell APRN [facility] [address] [facility] [address] [place] [address] Nurse Practitioner Cardiovascular Disease 09/09/21 Teresita Bean [facility] [address] [place] [phone] Pharmacist Pharmacist 09/24/21 09/29/21 Tavia Wyatt MD [address] [place], [place] [phone] Assigned Surgical Provider 11/29/21 05/07/22 Diana Desir, [facility] [address] [place] [address] Assigned MTM Pharmacist 01/02/22 Rich Barrett MD 30[address] [place], [place] 732886 Physician Ophthalmology 01/21/22 Neil Kent MD 500 [place], [place] 914275 Dermatology 02/24/22 Roney Story DPM [address] [facility] [address] [place], [place] 666347 Assigned Musculoskeletal Provider 03/20/22 08/13/22 Erica Farrell APRN SENIOR WEB ARCHITECT [facility]0 [place] [address] Assigned Heart and Vascular Provider 04/03/22 04/16/22 Diana Desir, [facility] [address] [place] [address] Assigned MTM Pharmacist 04/07/22 Jelena David OD [address] [facility] [address] Assigned Surgical Provider 05/08/22 10/08/22 Galo Burrell MD Assigned Heart and Vascular Provider 04/17/22 06/11/22 Livan Sharif MD [address] [place] 448765 Cardiovascular Disease 05/14/22 Livan Sharif MD [address] [facility] [address] [place] [address] Assigned Heart and Vascular Provider 06/12/22 07/23/22 Catherine Cm MD 6405 [facility] [address] [place] [address] Cardiovascular Disease 07/21/22 Valery Veronica, PA-C [address] [place] [address] 965455 Physician Sand Slinger Dermatology 07/21/22 Catherine Cm MD [address] [place] [phone] [place] [address] Assigned Heart and Vascular Provider 07/24/22 11/05/22 Johnny Murillo MD [address] [place] [address] 158284 Assigned Musculoskeletal Provider 08/14/22 10/08/22 Brea Quinn APRN SENIOR WEB ARCHITECT [address] [place] [address] 974525 Nurse Practitioner Dermatology 09/21/22 Brea Quinn APRN SENIOR WEB ARCHITECT [address] [place] [address] [place] [id number] Assigned Surgical Provider 10/09/22 05/01/24 [place] [address] RAZO [address] [place] [address] Assigned Musculoskeletal Provider 10/09/22 05/01/24 Livan Sharif MD [address] [place] 588075 Assigned Heart and Vascular Provider 11/06/22 11/12/22 Catherine Cm MD [address] [place] 317885 Assigned Heart and Vascular Provider 11/13/22 05/27/23 Sydnie Martinez RN Personal Advocate & Liaison (PAL) Family Medicine 03/28/23 07/31/23 Alfonso Renteria MD [address] [facility] [address] 200 [place] [address] Assigned Neuroscience Provider 04/02/23 09/29/24 Cheng Todd PA-C [address] [place] [address] [phone] Assigned PCP 04/30/23 07/15/23 Radha Lomeli APRN SENIOR WEB ARCHITECT [address] [place] [address] Assigned Heart and Vascular Provider 05/28/23 Jelena David OD [address] [place] [address] Ophthalmology 06/15/23 Pao Joseph, VJ Personal Advocate & Liaison (PAL) Nurse 08/01/23 11/07/23 Esha Grimm PA-C [address] [place] [phone] Assigned PCP 07/16/23 Valery Veronica PA-C 9 [place], [place] 454765 Physician Sand Slinger Dermatology 09/19/23 Rey Tay MD [address] [place] [address] MD Gastroenterology 09/20/23 Rocky Zepeda DO [address] [place] [address] 932165 Physician Gastroenterology 09/20/23 Philip Dumont MD [address] [place] [address] 645775 Physician Ophthalmology 09/22/23 Meredith Carrera PA-C [address] [place] [address] 306365 Assigned Gastroenterology Provider 11/01/23 Neil Kent MD [address] [place] [address] Dermatology 11/02/23 [place] [address] [place] [address] Neurological Surgery 12/26/23 Audrey Waite PA-C [address] [place] [address] Physician Sand Slinger Dermatology 02/28/24 Valery Veronica PA-C [address] [facility] [place] [address] Physician Sand Slinger Dermatology 04/10/24 Herminia Hatch MD [address] [place] [address] Assigned Rheumatology Provider 07/02/24 Jelena David OD [address] [place] [address] [place] [address] Ophthalmology 08/30/24 [place] [address] [place] [address] Assigned Neuroscience Provider 09/30/24 Maru Man PA-C [address] [place] [address] Physician Sand Slinger Dermatology 10/03/24 Maru Man PA-C [address] [place] [address] Physician Sand Slinger Dermatology 10/22/24 Jelena David OD [address] [place] [address] [place] [address] Assigned Surgical Provider 10/31/24 documented as of this encounter
--- OUTSIDE RECORDS SUMMARY | 2024-11-21 04:14 | XMS_ITS | Encounter Summary ---
Author Organization [place] Address [address] [place] [address] Care Team Providers Care Casting House Laborer Name Role Phone Lita Oseguera Unavailable Unavailable Marija Edgar APRN HEEL SANDER Primary Care Provider + Marija Edgra APRN HEEL SANDER Unavailable [phone] Keisha Dotson MD Unavailable [phone] Galo Burrell MD Unavailable Unavailable Diana Desir [facility] Unavailable Rain Galaviz PA-C Unavailable Summer Lara MD Unavailable Tavia Wyatt MD Unavailable Johnny Murillo MD Unavailable [phone] Erica Farrell APRN HEEL SANDER Unavailable Tavia Wyatt MD Unavailable Diana Desir [facility] Unavailable Rich Barrett MD Unavailable [phone] Neil Kent MD Unavailable Roney Story DPM Unavailable Erica Farrell APRN HEEL SANDER Unavailable Diana Desir [facility] Unavailable [phone] Jelena David OD Unavailable [phone] Galo Burrell MD Unavailable Unavailable HoLivan MD Unavailable Livan Sharif MD Unavailable IsCatherine hobbs MD Unavailable + Valery Veronica PA-C Unavailable [phone] Catherine Cm MD Unavailable + Johnny Murillo MD Unavailable [phone] Brea Quinn RADIAL DRILL PRESS SET UP OPERATOR HEEL SANDER Unavailable [phone] Brea Quinn RADIAL DRILL PRESS SET UP OPERATOR HEEL SANDER Unavailable [phone] Jose Francisco Johnson MD Unavailable Livan Sharif MD Unavailable + IsCatherine boothe MD Unavailable + Sydnie Martinez RN Unavailable Unavailable Alfonso Renteria MD Unavailable Esha Grimm PA-C Primary Care Provider Cheng Todd PA-C Unavailable Radha Lomeli RADIAL DRILL PRESS SET UP OPERATOR HEEL SANDER Unavailable [phone] Jelena David OD Unavailable Pao Joseph RN Unavailable Unavailable Esha Grimm PA-C Unavailable [phone] Valery Veronica PA-C Unavailable [phone] Rey Tay MD Unavailable Rocky Zepeda DO Unavailable Philip Dumont MD Unavailable [phone] Meredith Carrera PA-C Unavailable [phone] Neil Kent MD Unavailable Juan Pablo Emmanuel MD Unavailable [phone] Audrey Waite-C Unavailable [phone] Valery Veronica-C Unavailable [phone] Herminia Hatch MD Unavailable Jelena David OD Unavailable Juan Pablo Emmanuel MD Unavailable [phone] Maru Man PA-C Unavailable [phone] Maru Man PA-C Unavailable [phone] Jelena David OD Unavailable Encounter Details Date Type Department Care Team (Late st Contact Info) Description 01/22/2022 [facility] [address] [address] [facility] [address] [place] [address] Social History Tobacco Use Types Packs/Day Years [...] How often do you attend jain or sabianist serv ices? Never 09/22/2021 Do you belong to any clubs o r organizations such as jain groups, unions, fraOne Exchange [address] or athletic groups, or school groups? No [...] [facility] of Occupat ional [facility] - Occupational Stress Questionnaire [...] in a detention (including now)? No 09/22/2021 Volborg Depression Scale Answer Date Recorded Volborg Depression Score 5 01/14/2021 Last EPDS Self Harm Result Not on file 01/14 Education Answer Date Recorded What is the highest level of school you have completed or the highest degree you have received? 12th grade 08/07/2020 Comments No Sex and Gender Information Value Date Recorded Sex Assigned at Female 03/02/2021 5:45 PM CDT Legal Sex Female 4:13 AM REGIONAL CLINICAL DIRECTOR Gender Identity Female 03/02/2021 5:45 PM [...] Description 11/21/2024 7:00 AM CDT Office Visit [facility] [address] [phone] Maru Man PA-C [address] [phone] 12/20/2024 2:30 PM CDT Office Visit [facility] [address] [place] [address] Esha Grimm PA-C [address] [place] [address] 04/16/2025 11:00 AM CDT Virtual Visit [facility] Gastroenterology Clinic [address] 4th [place] [address] Meredith Carrera PA-C [address] [place] [address] 102365 documented as of this encounter Visit Diagnoses Not on filedocumented in this encounter Additional Health Concerns Infection Onset Date Last Indicated Resolved Time Rule Out COVID-19 02/24/2022 02/24/2022 02/25/2022 1:08 PM CDT Rule Out COVID-19 04/26/2022 04/26/2022 04/26/2022 6:47 AM CDT Rule Out COVID-19 05/17/2022 05/17/2022 05/17/2022 10:20 PM REGIONAL CLINICAL DIRECTOR Rule Out COVID-19 06/09/2022 06/09/2022 06/09/2022 9:35 AM REGIONAL CLINICAL DIRECTOR COVID-19 06/09/2022 06/09/2022 06/30/2022 11:4 1 PM REGIONAL CLINICAL DIRECTOR Rule Out COVID-19 11/10/2022 11/10/2022 11/11/2022 [...] as of this encounter Care Teams Casting House Laborer Relationship Specialty Start Date End Date Marija Edgar APRN HEEL SANDER PCP - General Nurse Practitioner 04/30/20 04/14/23 Esha Grimm PA-C [address] [place] [phone] PCP - General Family Medicine 05/04/23 Lita Oseguera Personal Advocate & Liaison (PAL) 02/28/20 03/27/23 Marija Edgar APRN HEEL SANDER Assigned PCP 06/08/20 04/29/23 Keisha Dotson MD 909 [place], [place] [phone] Assigned Neuroscience Provider 06/04/20 04/01/23 Galo Burrell MD Assigned Heart and Vascular Provider 10/05/20 04/02/22 [facility] 3033 [place], [place] 583046 Pharmacist Pharmacist 04/17/21 Rain Galaviz PA-C [address] [place] [address] DR [facility] [facility] [place] [address] Physician Building Equipment Operator Dermatology 04/28/21 Summer Lara MD [address] [place] [address] Assigned OBGYN Provider 05/31/21 Tavia Wyatt MD [address] [place] [address] Dermatology 07/14/21 Johnny Murillo MD [address] [place] [address] Assigned Musculoskeletal Provider 08/30/21 03/17/22 Erica Farrell APRN HEEL SANDER 6405 [facility] [address] [place], [place] 537245 Nurse Practitioner Cardiovascular Disease 09/09/21 Tavia Wyatt MD [address] [place] [address] Assigned Surgical Provider 11/29/21 05/07/22 Diana Desir, [facility] 3033 [place] [address] Assigned MTM Pharmacist 01/02/22 Rich Barrett MD 3033 [place] [address] Physician Ophthalmology 01/21/22 Neil Kent MD 500 [place] [address] Dermatology 02/24/22 Roney Story DPM [address] [place] [address] [place] [address] Assigned Musculoskeletal Provider 03/20/22 08/13/22 Erica Farrell APRN CNP 1700 [place] [address] Assigned Heart and Vascular Provider 04/03/22 04/16/22 [facility] [address] [place] [address] Assigned MTM Pharmacist 04/07/22 Jelena David OD [address] [place] [address] Assigned Surgical Provider 05/08/22 10/08/22 Galo Burrell MD Assigned Heart and Vascular Provider 04/17/22 06/11/22 Livan Sharif MD [address] [place] [address] Cardiovascular Disease 05/14/22 Livan Sharif MD [address] [place] 435955 Assigned Heart and Vascular Provider 06/12/22 07/23/22 Catherine Cm MD [address] [place] 161165 Cardiovascular Disease 07/21/22 Valery Veronica, PA-C 909 [place], [place] 783505 Physician Building Equipment Operator Dermatology 07/21/22 Catherine Cm MD [address] [place] [address] [place] [address] Assigned Heart and Vascular Provider 07/24/22 11/05/22 Johnny Murillo MD [address] [place] [address] Assigned Musculoskeletal Provider 08/14/22 10/08/22 Brea Quinn APRN HEEL SANDER [address] [place] [address] [phone] Nurse Practitioner Dermatology 09/21/22 Brea Quinn APRN HEEL SANDER [address] [place] [address] Assigned Surgical Provider 10/09/22 05/01/24 [place] [address] [address] Assigned Musculoskeletal Provider 10/09/22 05/01/24 Livan Sharif MD [address] [place] [address] [place] [address] Assigned Heart and Vascular Provider 11/06/22 11/12/22 Catherine Cm MD [address] [place] [address] [place] [address] Assigned Heart and Vascular Provider 11/13/22 05/27/23 Sydnie Martinez RN Personal Advocate & Liaison (PAL) Family Medicine 03/28/23 07/31/23 Alfonso Renteria MD 5775 [facility] 200 [place] [address] Assigned Neuroscience Provider 04/02/23 09/29/24 Cheng Todd PA-C [address] [place] [address] Assigned PCP 04/30/23 07/15/23 Radha Lomeli APRN HEEL SANDER 6405 [facility] [address] [place] [address] Assigned Heart and Vascular Provider 05/28/23 Jelena David OD [address] [place] [address] Ophthalmology 06/15/23 Pao Joseph RN Personal Advocate & Liaison (PAL) Nurse 08/01/23 11/07/23 Esha Grimm PA-C [address] [place] [phone] Assigned PCP 07/16/23 Valery Veronica PA-C [address] [place] [address] Physician Building Equipment Operator Dermatology 09/19/23 Rey Tay MD [address] [place] [address] 277795 Gastroenterology 09/20/23 Rocky Zepeda DO [address] [place] [address] Physician Gastroenterology 09/20/23 Philip Dumont MD [address] [place] [address] Physician Ophthalmology 09/22/23 Meredith Carrera PA-C [address] [place] [address] Assigned Gastroenterology Provider 11/01/23 Neil Kent MD [address] [place] [address] 237810 MD Dermatology 11/02/23 [place] [address] [facility] [place] [address] Neurological Surgery 12/26/23 Audrey Waite PA-C [address] [place] [address] Physician Building Equipment Operator Dermatology 02/28/24 Valery Veronica PA-C 143006 [address] [place] [address] Physician Building Equipment Operator Dermatology 04/10/24 Herminia Hatch MD [address] [place] [address] [id number] Assigned Rheumatology Provider 07/02/24 Jelena David OD [address] [place] [address] [place] [address] Ophthalmology 08/30/24 [place] [address] [address] [place] [address] Assigned Neuroscience Provider 09/30/24 Maru Man PA-C [address] [place] [address] Physician Building Equipment Operator Dermatology 10/03/24 Maru Man PA-C [address] [place] [address] Physician Building Equipment Operator Dermatology 10/22/24 Jelena David OD [facility] [place] [address] Assigned Surgical Provider 10/31/24 documented as of this encounter
--- OUTSIDE RECORDS SUMMARY | 2024-11-21 04:14 | XMS_ITS | Encounter Summary ---
Author Organization [facility] Address [address] [place] [address] Care Team Providers Care Professor Of Mathematics Name Role Phone Lita Oseguera Unavailable Unavailable Marija Edgar APRN IDENTITY MANAGEMENT CONSULTANT Primary Care Provider + Chanelle Mccann APRN CNM Unavailab le Kyara De La Fuente RN Unavailable [phone] Marija Edgar APRN IDENTITY MANAGEMENT CONSULTANT Unavailable [phone] Mynor Broussard MD Unavailable [phone] Keisha Dotson MD Unavailable [phone] Stacey Briones FACILITY SALES AND ADMIN Unavailable Lesley Guillermo CHW Unavailable Mary Mejia Unavailable Unavailable Lita Oseguera Unavailable Unavailable Galo Burrell MD Unavailable Unavailable Cristina Wood Unavailable Lesley Guillermo CHW Unavailable Meredith Bedoya Unavailable Unavailable Cristina Wood Unavailable Diana Desir [facility] Unavailable [phone] Rain Galaviz PA-C Unavailable Summer Lara MD Unavailable [phone] Summer Lara MD Unavailable [phone] Summer Lara MD Unavailable [phone] Tavia Wyatt MD Unavailable [phone] Johnny Murillo MD Unavailable [phone] Erica Farrell TAX SERVICES MANAGER IDENTITY MANAGEMENT CONSULTANT Unavailable Vikas Teresitakaren Watson [facility] Unavailable Tavia Wyatt MD Unavailable [phone] Diana Desir [facility] Unavailable [phone] Rich Barrett MD Unavailable Neil Kent MD Unavailable Roney StoryM Unavailable Erica Farrell TAX SERVICES MANAGER IDENTITY MANAGEMENT CONSULTANT Unavailable Diana Desir [facility] Unavailable [phone] Jelena David OD Unavailable Galo Burrell MD Unavailable Unavailable Livan Sharif MD Unavailable Livan Sharif MD Unavailable Catherine Cm MD Unavailable + Valery Veronica PA-C Unavailable [phone] Catherine Cm MD Unavailable + Johnny Murillo MD Unavailable [phone] Brea Quinn APRN IDENTITY MANAGEMENT CONSULTANT Unavailable [phone] Brea Quinn APRN IDENTITY MANAGEMENT CONSULTANT Unavailable [phone] Jose Francisco Jonhson MD Unavailable Livan Sharif MD Unavailable + Catherine Cm MD Unavailable + Sydnie Martinez RN Unavailable Unavailable Alfonso Renteria MD Unavailable [phone] Esha Grimm PA-C Primary Care Provider Perez Chengjc Fish PA-C Unavailable Armani Radha Stovall ARLENE GRANADOS Unavailable Jelena David OD Unavailable Pao Joseph RN Unavailable Unavailable Esha Grimm PA-C Unavailable [phone] Valery Veronica PA-C Unavailable Rey Tay MD Unavailable Rocky Zepeda DO Unavailable Philip Dumont MD Unavailable Meredith Carerra PA-C Unavailable [phone] Neil Kent MD Unavailable Juan Pablo [...] Care Team (Latest Contact Info) Description 09/02/2020 [facility] [place], [place] Medical Advice [address] [phone] Marija Edgar APRN [facility] [address] [facility] [place] [phone] MyChart Communication Social History Tobacco Use [...] do you attend chur or shinto services? More than 4 times [...] 08/12/2020 [facility] of Occupat [...] PM CDT Legal Sex Female 4:13 AM TRADESHOW WORKER Gender Identity Female 03/02/2021 5:45 PM CDT Sexual Orientation Straight 02/28/2020 12 :51 AM CDT COVID-19 Exposure Response Date Recorded In the last month, have you been in contact with someone who was confirmed or suspected to have Coronavirus / COVID-19? No / Unsure 09/05/2020 2:50 PM TRADESHOW WORKER documented as of this encounter Miscellaneous Notes * Telephone Encounter - Ever Cardozo MA - 09/03/2020 10:34 AM CST Responded to patient as below. 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 documented in this encounter Plan of Treatment Upcoming Encounters Date Type Department Care Team (Late st Contact Info) Description 11/21/2024 7:00 AM CDT Office Visit [address] [phone] Maru Man PA-C [address] [place] [address] 12/20/2024 2:30 PM CDT Office Visit [facility] [id number] [place] [phone] Esha Grimm PA-C [address] [place] [phone] 04/16/2025 11:00 AM CDT Virtual Visit [facility] [address] [place] [phone] Meredith Carrera PA-C [address] [place] [address] (work) documented as of this encounter Visit Diagnoses Not on filedocumented in this encounter Additional Health Concerns Infection Onset Date Last Indicated Resolved Time Rule Out COVID-19 09/24/2020 09/24/2020 09/24/2020 9:24 AM CDT Rule Out COVID-19 11/05/2020 11/05/2020 11/06/2020 1:09 PM CDT Rule Out COVID-19 05/11/2021 05/11/2021 05/13/2021 10:18 AM CDT Rule Out COVID-19 07/13/2021 07/13/2021 07/14/2021 3:04 PM TRADESHOW WORKER Rule Out COVID-19 07/18/2021 07/18/2021 07/20/2021 1:56 PM TRADESHOW WORKER COVID-19 07/18/2021 07/18/2021 08/08/2021 11:3 9 PM TRADESHOW WORKER Rule Out COVID-19 12/18/2021 12/18/2021 12/19/2021 11:34 AM CDT Rule Out COVID-19 02/24/2022 02/24/2022 02/25/2022 1:08 PM CDT Rule Out COVID-19 04/26/2022 04/26/2022 04/26/2022 6:47 AM CDT Rule Out COVID-19 05/17/2022 05/17/2022 05/17/2022 10:20 PM TRADESHOW WORKER Rule Out COVID-19 06/09/2022 06/09/2022 06/09/2022 9:35 AM TRADESHOW WORKER COVID-19 06/09/2022 06/09/2022 06/30/2022 11:4 1 PM TRADESHOW WORKER Rule Out COVID-19 11/10/2022 11/10/2022 11/11/2022 12:17 PM CDT Rule Out COVID-19 03/07/2023 03/07/2023 03/07/2023 1:20 PM CDT Rule Out COVID-19 12/26/2023 12/26/2023 12/26/2023 9:50 AM CDT Rule Out COVID-19 04/09/2024 04/09/2024 04/10/2024 6:48 PM CDT Rule Out COVID-19 10/04/2024 10/04/2024 10/05/2024 9:42 AM CDT Rule Out COVID-19 11/20/2024 11/20/2024 Assessment Noted Time PHQ-9 Depression Total Score: 9 06/25/20 7:04 AM TRADESHOW WORKER documented as of this encounter Care Teams Professor Of Mathematics Relationship Specialty Start Date End Date Marija Edgar APRN IDENTITY MANAGEMENT CONSULTANT PCP - General Nurse Practitioner 04/30/20 04/14/23 Esha Grimm PA-C [address] [place] [phone] PCP - General Family Medicine 05/04/23 Lita Oseguera Personal Advocate & Liaison (PAL) 02/28/20 03/27/23 Chanelle Mccann APRN CNM [address] [place] [address] [address] [place] [address] Assigned OBGYN Provider 05/02/2005/09 Kyara De La Fuente, VJ Specialty Fiber Analyst Neurology 06/04/20 03/05/21 Marija Edgar APRN IDENTITY MANAGEMENT CONSULTANT Assigned PCP 06/08/20 04/29/23 Mynor Broussard MD [address] [facility] [address] [place] [address] Assigned Surgical Provider 06/01/20 11/28/21 Keisha Dotson MD [address] [place] [address] Assigned Neuroscience Provider 06/04/20 04/01/23 Stacey Briones, [facility] Lead Fiber Analyst Primary Care - CC 08/11/2012/30 Lesley Guillermo, [facility] Community Health Worker 08/11/2010/01 Mary Mejia Financial Resource Worker 09/02/20 10/06/20 Lita Oseguera Personal Advocate & Liaison (PAL) Family Medicine 09/10/20 09/21/20 Galo Burrell MD Assigned Heart and Vascular Provider 10/05/20 04/02/22 Cristina Wood Financial Resource Worker 10/07/20 10/14/20 Lesley Guillermo, [facility] Community Health Worker 10/23/2012/30 Meredith Bedoya Financial Resource Worker 10/23/20 11/23/20 Cristina Wood Financial Resource Worker 02/09/21 02/09/21 Diana Desir, [facility] [address] [place] [address] Pharmacist Pharmacist 04/17/21 Rain Galaviz PA-C [address] [place] [address] [place] [address] Physician Emergency Medicine Physician Dermatology 04/28/21 Summer Lara MD [address] [place] [address] Assigned OBGYN Provider 05/10/2105/23 Summer Lara MD [address] [place] [address] Assigned OBGYN Provider 05/31/21 Summer Lara MD [address] [place] [address] Assigned OBGYN Provider 05/24/2105/30 Tavia Wyatt MD [address] [place], [place] [phone] Dermatology 07/14/21 Johnny Murillo MD [address] [place] [address] Assigned Musculoskeletal Provider 08/30/21 03/17/22 Erica Farrell APRN IDENTITY MANAGEMENT CONSULTANT [address] [facility] [address] [place] [address] Nurse Practitioner Cardiovascular Disease 09/09/21 Teresita Bean, [facility] [address] [place] [address] Pharmacist Pharmacist 09/24/21 09/29/21 Tavia Wyatt MD [address] [place], [place] 955940 Assigned Surgical Provider 11/29/21 05/07/22 Diana Desir, [facility] [address] [place] [address] Assigned MTM Pharmacist 01/02/22 Rich Barrett MD [address] [place] [address] Physician Ophthalmology 01/21/22 eNil Kent MD [address] [place] [address] Dermatology 02/24/22 Roney Story DPM [address] [employer] [facility] [address] [place], [place] 5460[address] Assigned Musculoskeletal Provider 03/20/22 08/13/22 Erica Farrell APRN IDENTITY MANAGEMENT CONSULTANT [address] [place] [address] Assigned Heart and Vascular Provider 04/03/22 04/16/22 Diana Desir, [facility] [address] [place] [address] Assigned MTM Pharmacist 04/07/22 Jelena David OD [address] [facility] [place] [address] Assigned Surgical Provider 05/08/22 10/08/22 Galo Burrell MD Assigned Heart and Vascular Provider 04/17/22 06/11/22 Livan Sharif MD [address] [place] [address] Cardiovascular Disease 05/14/22 Livan Sharif MD [address] [place] [address] Assigned Heart and Vascular Provider 06/12/22 07/23/22 Catherine Cm MD [address] [place] [place] [phone] [place] [address] Cardiovascular Disease 07/21/22 Valery Veronica, PA-C [address] [place] [address] 912295 Physician Emergency Medicine Physician Dermatology 07/21/22 Catherine Cm MD [address] [address] Assigned Heart and Vascular Provider 07/24/22 11/05/22 Johnny Murillo MD [address] [place] [address] Assigned Musculoskeletal Provider 08/14/22 10/08/22 Brea Quinn APRN IDENTITY MANAGEMENT CONSULTANT [address] [place] [address] [phone] Nurse Practitioner Dermatology 09/21/22 Brea Quinn APRN IDENTITY MANAGEMENT CONSULTANT [address] [place] [address] Assigned Surgical Provider 10/09/22 05/01/24 [place] [address] [address] Assigned Musculoskeletal Provider 10/09/22 05/01/24 Livan Sharif MD [address] [place] [address] Assigned Heart and Vascular Provider 11/06/22 11/12/22 Catherine Cm MD [address] [place] [address] Assigned Heart and Vascular Provider 11/13/22 05/27/23 Sydnie Martinez RN Personal Advocate & Liaison (PAL) Family Medicine 03/28/23 07/31/23 Alfonso Renteria MD [address] [facility] 200 [place] [address] Assigned Neuroscience Provider 04/02/23 09/29/24 Cheng Todd PA-C [address] [place] [address] Assigned PCP 04/30/23 07/15/23 Radha Lomeli APRN IDENTITY MANAGEMENT CONSULTANT [address] [place] [address] Assigned Heart and Vascular Provider 05/28/23 Jelena David OD [facility] [facility] [place] [address] Ophthalmology 06/15/23 Pao Joseph, VJ Personal Advocate & Liaison (PAL) Nurse 08/01/23 11/07/23 Esha Grimm PA-C [address] [place] [phone] Assigned PCP 07/16/23 Valery Veronica PA-C [address] [place] [address] Physician Emergency Medicine Physician Dermatology 09/19/23 Rey Tay MD [address] [place] [address] MD Gastroenterology 09/20/23 Rocky Zepeda DO [address] [place] [address] Physician Gastroenterology 09/20/23 Philip Dumont MD [address] [place] [address] Physician Ophthalmology 09/22/23 Meredith Carrera PA-C [address] [place] [address] Assigned Gastroenterology Provider 11/01/23 Neil Kent MD [address] [address] Dermatology 11/02/23 [place] [address] [place] [address] [address] Neurological Surgery 12/26/23 Audrey Waite PA-C [address] [place] [address] Physician Emergency Medicine Physician Dermatology 02/28/24 Valery Veronica PA-C [id number] [address] [place] [address] Physician Emergency Medicine Physician Dermatology 04/10/24 Herminia Hatch MD [facility]5 [place] [address] Assigned Rheumatology Provider 07/02/24 Jelena David OD [address] [place] [address] [place] [address] Ophthalmology 08/30/24 [place] [address] [place] [address] Assigned Neuroscience Provider 09/30/24 Maru Man PA-C [address] [place] [address] Physician Emergency Medicine Physician Dermatology 10/03/24 Maru Man PA-C [address] [place] [address] Physician Emergency Medicine Physician Dermatology 10/22/24 Jelena David OD [address] [place] [address] [place] [address] Assigned Surgical Provider 10/31/24 documented as of this encounter
--- OUTSIDE RECORDS SUMMARY | 2024-11-21 04:14 | XMS_ITS | Encounter Summary ---
Author Organization [facility] Address [address] [place] [address] Care Team Providers Care Cattle Farmer Name Role Phone Lita Oseguera Unavailable Unavailable Marija Edgar APRN EASEMENT MAN Primary Care Provider + Chanelle Mccann APRN CNM Unavailab le Kyara De La Fuente RN Unavailable [phone] Marija Edgar APRN EASEMENT MAN Unavailable Mynor Broussard MD Unavailable [phone] Keisha Dotson MD Unavailable Stacey Briones AERIAL LINEMAN Unavailable Lesley Guillermo CHW Unavailable Mary Mejia Unavailable Unavailable Lita Oseguera Unavailable Unavailable Galo Burrell MD Unavailable Unavailable Cristina Wood Unavailable Lesley Guillermo CHW Unavailable Meredith Bedoya Unavailable Unavailable Cristina Wood Unavailable Diana Desir [facility] Unavailable Rain Galaviz PA-C Unavailable Summer Lara MD Unavailable [phone] Summer Lara MD Unavailable Summer Lara MD Unavailable [phone] Tavia Wyatt MD Unavailable [phone] Johnny Murillo MD Unavailable [phone] Erica Farrell CHIEF CLINICAL OFFICER EASEMENT MAN Unavailable Vikas Teresitakaren Watson [facility] Unavailable Tavia Wyatt MD Unavailable [phone] Diana Desir [facility] Unavailable [phone] Rich Barrett MD Unavailable Neil Kent MD Unavailable Roney StoryM Unavailable Erica Farrell CHIEF CLINICAL OFFICER EASEMENT MAN Unavailable Diana Desir [facility] Unavailable [phone] Jelena David OD Unavailable Galo Burrell MD Unavailable Unavailable Livan Sharif MD Unavailable Livan Sharif MD Unavailable Catherine Cm MD Unavailable + Valery Veronica PA-C Unavailable [phone] Catherine Cm MD Unavailable + Johnny Murillo MD Unavailable +[phone] Brea Quinn APRN EASEMENT MAN Unavailable [phone] Brea Quinn APRN EASEMENT MAN Unavailable [phone] Jose Francisco Johnson MD Unavailable Livan Sharif MD Unavailable + Catherine Cm MD Unavailable + Sydnie Martinez RN Unavailable Unavailable Alfonso Renteria MD Unavailable [phone] Esha Grimm PA-C Primary Care Provider Cheng Todd PA-C Unavailable Armani Radha Sia JACOBS CNP Unavailable Jelena David OD Unavailable Pao Joseph RN Unavailable Unavailable Esha Grimm PA-C Unavailable [phone] Valery Veronica PA-C Unavailable Rey Tay [...] Team (Late st Contact Info) Description 09/02/2020 [facility] [place] [facility] [place] [address] [place] [phone] Mary Mejia Social History Tobacco Use Types [...] Answer Date Recorded PHQ-2 Score 0 08/12/2020 [facility] [...] PM CDT Legal Sex Female 4:13 AM COATING OPERATOR Gender Identity Female 03/02/2021 5:45 PM CDT Sexual Orientation Straight 02/28/2020 12 :51 AM CDT COVID-19 Exposure Response Date Recorded In the last month, have you been in contact with someone who was confirmed or suspected to have Coronavirus / COVID-19? No / Unsure 09/05/2020 2:50 PM COATING OPERATOR documented as of this encounter Plan of Treatment Upcoming Encounters Date Type Department Care Team (Late st Contact Info) Description 11/21/2024 7:00 AM CDT Office Visit [facility] [address] [phone] Maru Man PA-C [address] [place] [address] [phone] 12/20/2024 2:30 PM CDT Office Visit [facility] [id number] [place] [address] [phone] Esha Grimm PA-C [id number] [place] [phone] 04/16/2025 11:00 AM CDT Virtual Visit [facility] [address] [phone] Meredith Carrera PA-C [address] [place] [address] documented as of this encounter Visit Diagnoses Not on filedocumented in this encounter Additional Health Concerns Infection Onset Date Last Indicated Resolved Time Rule Out COVID-19 09/24/2020 09/24/2020 09/24/2020 9:24 AM CDT Rule Out COVID-19 11/05/2020 11/05/2020 11/06/2020 1:09 PM CDT Rule Out COVID-19 05/11/2021 05/11/2021 05/13/2021 10:18 AM CDT Rule Out COVID-19 07/13/2021 07/13/2021 07/14/2021 3:04 PM COATING OPERATOR Rule Out COVID-19 07/18/2021 07/18/2021 07/20/2021 1:56 PM COATING OPERATOR COVID-19 07/18/2021 07/18/2021 08/08/2021 11:3 9 PM COATING OPERATOR Rule Out COVID-19 12/18/2021 12/18/2021 12/19/2021 11:34 AM CDT Rule Out COVID-19 02/24/2022 02/24/2022 02/25/2022 1:08 PM CDT Rule Out COVID-19 04/26/2022 04/26/2022 04/26/2022 6:47 AM CDT Rule Out COVID-19 05/17/2022 05/17/2022 05/17/2022 10:20 PM COATING OPERATOR Rule Out COVID-19 06/09/2022 06/09/2022 06/09/2022 9:35 AM COATING OPERATOR COVID-19 06/09/2022 06/09/2022 06/30/2022 11:4 1 PM COATING OPERATOR Rule Out COVID-19 11/10/2022 11/10/2022 11/11/2022 12:17 PM CDT Rule Out COVID-19 03/07/2023 03/07/2023 03/07/2023 1:20 PM CDT Rule Out COVID-19 12/26/2023 12/26/2023 12/26/2023 9:50 AM CDT Rule Out COVID-19 04/09/2024 04/09/2024 04/10/2024 6:48 PM CDT Rule Out COVID-19 10/04/2024 10/04/2024 10/05/2024 9:42 AM CDT Rule Out COVID-19 11/20/2024 11/20/2024 Assessment Noted Time PHQ-9 Depression Total Score: 9 06/25/20 20 7:04 AM COATING OPERATOR documented as of this encounter Care Teams Cattle Farmer Relationship Specialty Start Date End Date Marija Edgar APRN EASEMENT MAN PCP - General Nurse Practitioner 04/30/20 04/14/23 Esha Grimm PA-C [address] [place] [phone] PCP - General Family Medicine 05/04/23 Lita Oseguera Personal Advocate & Liaison (PAL) 02/28/20 03/27/23 Chanelle Mccann APRN CNM [id number] [place] [address], [facility] [address] [place] [address] Assigned OBGYN Provider 05/02/2005/09 Kyara De La Fuente, VJ Specialty Float Nurse Neurology 06/04/20 03/05/21 Marija Edgar APRN EASEMENT MAN Assigned PCP 06/08/20 04/29/23 Mynor Broussard MD [address] [facility] 500 [place], [place] 708[address] Assigned Surgical Provider 06/01/20 11/28/21 Keisha Dotson MD [address] [place], [place] 267135 Assigned Neuroscience Provider 06/04/20 04/01/23 Stacey Briones, AERIAL LINEMAN Lead Float Nurse Primary Care - CC 08/11/2012/30 Lesley Guillermo, W Community Health Worker 08/11/2010/01 Mary Mejia Financial Resource Worker 09/02/20 10/06/20 Lita Oseguera Personal Advocate & Liaison (PAL) Family Medicine 09/10/20 09/21/20 Galo Burrell MD Assigned Heart and Vascular Provider 10/05/20 04/02/22 Cristina Wood Financial Resource Worker 10/07/20 10/14/20 Lesley Guillermo, [facility] Community Health Worker 10/23/2012/30 Meredith Bedoya Financial Resource Worker 10/23/20 11/23/20 Cristina Wood Financial Resource Worker 02/09/21 02/09/21 Diana Desir, [facility] [address] [place], [place] 509256 Pharmacist Pharmacist 04/17/21 Rain Galaviz PA-C [address] [place] [address] [address] [place], [place] [phone] Physician Family And Consumer Science Professor Dermatology 04/28/21 Summer Lara MD [address] [place] [address] [phone] Assigned OBGYN Provider 05/10/2105/23 Summer Lara MD [address] [place] [address] [phone] Assigned OBGYN Provider 05/31/21 2 Summer Lara MD [address] [place] [address] [phone] Assigned OBGYN Provider 05/24/2105/30 Tavia Wyatt MD [address] [place] [address] Dermatology 07/14/21 Johnny Murillo MD [address] [place] [address] Assigned Musculoskeletal Provider 08/30/21 03/17/22 Erica Farrell APRN EASEMENT MAN [address] [facility] [address] [place] [address] Nurse Practitioner Cardiovascular Disease 09/09/21 Teresita Bean [facility] [address] [facility] [place], [place] [phone] Pharmacist Pharmacist 09/24/21 09/29/21 Tavia Wyatt MD [address] [place] [address] Assigned Surgical Provider 11/29/21 05/07/22 [facility] [address] [place] [address] Assigned MTM Pharmacist 01/02/22 Rich Barrett MD [address] [place] [address] Physician Ophthalmology 01/21/22 Neil Kent MD [address] [place], [place] 916205 Dermatology 02/24/22 Roney Story DPM [address] [facility] [address] [place], [place] 190137 Assigned Musculoskeletal Provider 03/20/22 08/13/22 Erica Farrell APRN EASEMENT MAN [address] [place] [address] Assigned Heart and Vascular Provider 04/03/22 04/16/22 [facility] [address] [place] [address] Assigned MTM Pharmacist 04/07/22 Jelena David OD [address] [facility] [place] [address] Assigned Surgical Provider 05/08/22 10/08/22 Galo Burrell MD Assigned Heart and Vascular Provider 04/17/22 06/11/22 Livan Sharif MD [address] [place] [address]875 Cardiovascular Disease 05/14/22 Livan Sharif MD [address] [place] [address] Assigned Heart and Vascular Provider 06/12/22 07/23/22 Catherine Cm MD [address] [place] 450755 Cardiovascular Disease 07/21/22 Valery Veronica PA-C [address] [place] [address] Physician Family And Consumer Science Professor Dermatology 07/21/22 Catherine Cm MD [address] [facility] [address] [place] [address] Assigned Heart and Vascular Provider 07/24/22 11/05/22 Johnny Murillo MD [address] [phone] Assigned Musculoskeletal Provider 08/14/22 10/08/22 Brea Quinn APRN EASEMENT MAN [address] [place], [place] 611585 Nurse Practitioner Dermatology 09/21/22 Brea Quinn APRN EASEMENT MAN [address] [place] [address] [place] 716622 Assigned Surgical Provider 10/09/22 05/01/24 [place] [address] [place] [address] Assigned Musculoskeletal Provider 10/09/22 05/01/24 Livan Sharif MD [address] [facility] [address] [place] [address] Assigned Heart and Vascular Provider 11/06/22 11/12/22 Catherine Cm MD [address] [place] [address] Assigned Heart and Vascular Provider 11/13/22 05/27/23 Sydnie Martinez RN Personal Advocate & Liaison (PAL) Family Medicine 03/28/23 07/31/23 Alfonso Renteria MD [address] [facility] [address] [place] [address] Assigned Neuroscience Provider 04/02/23 09/29/24 Cheng Todd PA-C [address] [place] [address] Assigned PCP 04/30/23 07/15/23 Radha Lomeli, ARLENE EASEMENT MAN [address] [facility] [address] [place], [place] 319615 Assigned Heart and Vascular Provider 05/28/23 Jelena aDvid OD [address] [facility] [address] [place] [phone] Ophthalmology 06/15/23 Pao Joseph, VJ Personal Advocate & Liaison (PAL) Nurse 08/01/23 11/07/23 Esha Grimm PA-C [address] [place] [phone] Assigned PCP 07/16/23 Valery Veronica PA-C [address] [place] [address] Physician Family And Consumer Science Professor Dermatology 09/19/23 Rey Tay MD [address] [place] [address] 037025 Gastroenterology 09/20/23 Rocky Zepeda DO [address] [place] [address] 288425 Physician Gastroenterology 09/20/23 Philip Dumont MD [address] [place] [address] Physician Ophthalmology 09/22/23 Meredith Carrera PA-C [address] [place] [address] Assigned Gastroenterology Provider 11/01/23 Neil Kent MD [address] [phone] MD Dermatology 11/02/23 [place] [address] [facility] [place] [address] Neurological Surgery 12/26/23 Audrey Waite PA-C 500 [place] [address] Physician Family And Consumer Science Professor Dermatology 02/28/24 Valery Veronica PA-C 345642 [address], [place] [address] Physician Family And Consumer Science Professor Dermatology 04/10/24 Herminia Hatch MD [facility]5 [place], [place] [phone] Assigned Rheumatology Provider 07/02/24 Jelena David OD [address] [facility] [place] [address] Ophthalmology 08/30/24 [place] [address] [address] [place] [address] Assigned Neuroscience Provider 09/30/24 Maru Man PA-C [address] [place] [address] Physician Family And Consumer Science Professor Dermatology 10/03/24 Maru Man PA-C [address] [place] [address] Physician Family And Consumer Science Professor Dermatology 10/22/24 Jelena David OD [address] [facility] [place] [address] Assigned Surgical Provider 10/31/24 documented as of this encounter
--- OUTSIDE RECORDS SUMMARY | 2024-11-21 04:14 | XMS_ITS | Clinical Summary ---
Author Organization [facility] Address [address] [address] Phone Care Team Providers Care C Application Developer Name Role Phone Unavailable Primary Care Provider [...] Not on file Insurance [employer]BS OTHER [facility] Commercial Address: [address] [place] [address]
--- OUTSIDE RECORDS SUMMARY | 2024-11-21 04:14 | XMS_ITS | Encounter Summary ---
Author Organization [facility] Address [address] [place] [address] Care Team Providers Care Television News Anchor Name Role Phone Lita Oseguera Unavailable Unavailable Marija Edgar APRN INSURANCE RISK ANALYST Primary Care Provider + Chanelle Mccann APRN CNM Unavailab le Kyara De La Fuente RN Unavailable [phone] Marija Edgar APRN INSURANCE RISK ANALYST Unavailable Mynor Broussard MD Unavailable [phone] Keisha Dotson MD Unavailable [phone] Mary Mejia Unavailable Unavailable Stacey Briones BITUMASTIC APPLIER Unavailable Lesley Guillermo CHW Unavailable Mary Mejia Unavailable Unavailable Lita Oseguera Unavailable Unavailable Galo Burrell MD Unavailable Unavailable Cristina Wood Unavailable Lesley Guillermo CHW Unavailable Meredith Bedoya Unavailable Unavailable Cristina Wood Unavailable Diana Desir [facility] Unavailable [place]uhland, Rain Lena PA-C Unavailable Summer Lara MD Unavailable [phone] Summer Lara MD Unavailable [phone] Summer Lara MD Unavailable Tavia Wyatt MD Unavailable [phone] Johnny Murillo MD Unavailable [phone] Erica Farrell APRN INSURANCE RISK ANALYST Unavailable VikasTeresita H Unavailable Tavia Wyatt MD Unavailable [phone] Diana Desir [facility] Unavailable [phone] Rich Barrett MD Unavailable [phone] Neil Kent MD Unavailable Roney Story [facility] Unavailable Erica Farrell APRN INSURANCE RISK ANALYST Unavailable Diana Desir [facility] Unavailable [phone] Jelena David OD Unavailable [phone] Galo Burrell MD Unavailable Unavailable Livan Sharif MD Unavailable Livan Sharif MD Unavailable Catherine Cm MD Unavailable + Valery Veronica PA-C Unavailable [phone] Catherine Cm MD Unavailable + Johnny Murillo MD Unavailable [phone] Brea Quinn APRN INSURANCE RISK ANALYST Unavailable [phone] Brea Quinn [employer] INSURANCE RISK ANALYST Unavailable [phone] Jose Francisco Johnson MD Unavailable Livan Sharif MD Unavailable Catherine Cm MD Unavailable + Sydnie Martinez RN Unavailable Unavailable Alfonso Renteria MD Unavailable [phone] Esha Grimm PA-C Primary Care Provider Cheng Todd PA-C Unavailable Radha Lomeli APRN, CNP Unavailable Jelena David OD Unavailable Pao Joseph RN Unavailable Unavailable Esha Grimm PA-C Unavailable [phone] Valery Veronica PA-C Unavailable eRy Tay MD Unavailable Rocky Zepeda DO Unavailable Philip Dumont MD Unavailable Meredith Carrera PA-C Unavailable Neil Kent MD Unavailable Juan Pablo Emmanuel MD Unavailable Audrey Waite PA-C Unavailable Valery Veronica PA-C Unavailable Herminia Hatch MD Unavailable Jelena David OD Unavailable Juan Pablo Emmanuel MD Unavailable Maru Man PA-C Unavailable [phone] Maru Man PA-C Unavailable [phone] Jelena David OD Unavailable Encounter Details Date Type Department Care Team (Late st Contact Info) Description 08/07/2020 [facility] [address] [place] [address] Mau Guillermolincoln Avendano, [facility] Social History Tobacco Use Types Packs/Day [...] Answer Date Recorded PHQ-2 Score 3 06/24/2020 [facility] [place] of Occupat ional Health - Occupational Stress [...] PM CDT Legal Sex Female 4:13 AM DENTAL LABORATORY MANAGER Gender Identity Female 03/02/2021 5:45 PM CDT Sexual Orientation Straight 02/28/2020 12 :51 AM CDT COVID-19 Exposure Response Date Recorded In the last month, have you been in contact with someone who was confirmed or suspected to have Coronavirus / COVID-19? No / Unsure 08/06/2020 2:03 PM DENTAL LABORATORY MANAGER documented as of this encounter Functional Status documented as of this encounter Plan of Treatment Upcoming Encounters Date Type Department Care Team (Late st Contact Info) Description 11/21/2024 7:00 AM CDT Office Visit [facility] [address] [phone] Maru Man PA-C [address] [place] [address] 12/20/2024 2:30 PM CDT Office Visit [facility] [address] [place] [phone] Esha Grimm PA-C [id number] [place] [phone] 04/16/2025 11:00 AM CDT Virtual Visit [facility] [address] [place] [phone] Meredith Carrera PA-C [address] [place] [address] documented as of this encounter Visit Diagnoses Not on filedocumented in this encounter Additional Health Concerns Infection Onset Date Last Indicated Resolved Time Rule Out COVID-19 08/30/2020 08/30/2020 08/30/2020 5:05 PM DENTAL LABORATORY MANAGER Rule Out COVID-19 09/24/2020 09/24/2020 09/24/2020 9:24 AM CDT Rule Out COVID-19 11/05/2020 11/05/2020 11/06/2020 1:09 PM CDT Rule Out COVID-19 05/11/2021 05/11/2021 05/13/2021 10:18 AM CDT Rule Out COVID-19 07/13/2021 07/13/2021 07/14/2021 3:04 PM DENTAL LABORATORY MANAGER Rule Out COVID-19 07/18/2021 07/18/2021 07/20/2021 1:56 PM DENTAL LABORATORY MANAGER COVID-19 07/18/2021 07/18/2021 08/08/2021 11:3 9 PM DENTAL LABORATORY MANAGER Rule Out COVID-19 12/18/2021 12/18/2021 12/19/2021 11:34 AM CDT Rule Out COVID-19 02/24/2022 02/24/2022 02/25/2022 1:08 PM CDT Rule Out COVID-19 04/26/2022 04/26/2022 04/26/2022 6:47 AM CDT Rule Out COVID-19 05/17/2022 05/17/2022 05/17/2022 10:20 PM DENTAL LABORATORY MANAGER Rule Out COVID-19 06/09/2022 06/09/2022 06/09/2022 9:35 AM DENTAL LABORATORY MANAGER COVID-19 06/09/2022 06/09/2022 06/30/2022 11:4 1 PM DENTAL LABORATORY MANAGER Rule Out COVID-19 11/10/2022 11/10/2022 11/11/2022 12:17 PM CDT Rule Out COVID-19 03/07/2023 03/07/2023 03/07/2023 1:20 PM CDT Rule Out COVID-19 12/26/2023 12/26/2023 12/26/2023 9:50 AM CDT Rule Out COVID-19 04/09/2024 04/09/2024 04/10/2024 6:48 PM CDT Rule Out COVID-19 10/04/2024 10/04/2024 10/05/2024 9:42 AM CDT Rule Out COVID-19 11/20/2024 11/20/2024 Assessment Noted Time PHQ-9 Depression Total Score: 9 06/25/20 20 7:04 AM DENTAL LABORATORY MANAGER documented as of this encounter Care Teams Television News Anchor Relationship Specialty Start Date End Date Marija Edgar APRN INSURANCE RISK ANALYST PCP - General Nurse Practitioner 04/30/20 04/14/23 Esha Grimm PA-C [address] [place] [phone] PCP - General Family Medicine 05/04/23 Lita Oseguera Personal Advocate & Liaison (PAL) 02/28/20 03/27/23 Chanelle Mccann APRN CNAdam [address] [address] [address] [place] [address] Assigned OBGYN Provider 05/02/2005/09 Kyara De La Fuente, RN Specialty Manager [facility] 06/04/20 03/05/21 Marija Edgar APRN INSURANCE RISK ANALYST Assigned PCP 06/08/20 04/29/23 Mynor Broussard MD [address] [place] [address] Assigned Surgical Provider 06/01/20 11/28/21 Keisha Dotson MD [address] [place], [place] [phone] Assigned Neuroscience Provider 06/04/20 04/01/23 Mary Mejia Financial Resource Worker 08/07/20 08/21/20 Stacey Briones, BITUMASTIC APPLIER Lead Manager [facility] - [facility] 08/11/2012/30 Lesley Guillermo, [facility] Community Health Worker 08/11/2010/01 Jackie Mary [...] 02/09/21 02/09/21 Diana Desir, [facility] [address] [place] [address] Pharmacist Pharmacist 04/17/21 Rain Galaviz PA-C [address] [place] [address] [address] [place] [place], [place] [phone] Physician [employer] Truck Driver Dermatology 04/28/21 Summer Lara MD [address] [place] [address] [phone] Assigned OBGYN Provider 05/10/2105/23 Summer Lara MD [address] [place] [address] 751994 Assigned OBGYN Provider 05/31/21 2 Summer Lara MD [address] [place] [address] Assigned OBGYN Provider 05/24/2105/30 Tavia Wyatt MD [address] [place] [address] Dermatology 07/14/21 Johnny Murillo MD [address] [place] [address] Assigned Musculoskeletal Provider 08/30/21 03/17/22 Erica Farrell APRN INSURANCE RISK ANALYST [address] [facility] [address] [place] [address] Nurse Practitioner Cardiovascular Disease 09/09/21 Teresita Bean [facility] [address] [place] [place], [place] [phone] Pharmacist Pharmacist 09/24/21 09/29/21 Tavia Wyatt MD [address] [place] [address] Assigned Surgical Provider 11/29/21 05/07/22 [facility] [address] [place] [address] Assigned MTM Pharmacist 01/02/22 Rich Barrett MD [address] [place] [address] Physician Ophthalmology 01/21/22 Neil Kent MD [address] [place] [address] Dermatology 02/24/22 Roney Story DPM [address] [facility] [address] [place] [address] Assigned Musculoskeletal Provider 03/20/22 08/13/22 Erica Farrell APRN INSURANCE RISK ANALYST [address] [place] [address] Assigned Heart and Vascular Provider 04/03/22 04/16/22 Diana Desir, [facility] [address] [place] [address] Assigned MTM Pharmacist 04/07/22 Jelena David OD [address] [facility] [place] [address] Assigned Surgical Provider 05/08/22 10/08/22 Galo Burrell MD Assigned Heart and Vascular Provider 04/17/22 06/11/22 Livan Sharif MD [address] [place] [address] Cardiovascular Disease 05/14/22 Livan Sharif MD [address] [place] [address] Assigned Heart and Vascular Provider 06/12/22 07/23/22 Catherine Cm MD [address] [place] 663175 Cardiovascular Disease 07/21/22 Valery Veronica PA-C [address] [place], [place] [phone] Physician [employer] Truck Driver Dermatology 07/21/22 Catherine mC MD [address] [place] [address] [place] [address] Assigned Heart and Vascular Provider 07/24/22 11/05/22 Johnny Murillo MD [address] [place] [address] Assigned Musculoskeletal Provider 08/14/22 10/08/22 Brea Quinn APRN INSURANCE RISK ANALYST [address] [place] [address] Nurse Practitioner Dermatology 09/21/22 Brea Quinn APRN INSURANCE RISK ANALYST [address] [place] [address] Assigned Surgical Provider 10/09/22 05/01/24 [place] [address] [place] [address] [address] Assigned Musculoskeletal Provider 10/09/22 05/01/24 Livan Sharif MD [address] [place] [address] [place] [address] Assigned Heart and Vascular Provider 11/06/22 11/12/22 Catherine Cm MD [address] [place] [address] Assigned Heart and Vascular Provider 11/13/22 05/27/23 Sydnie Martinez, RN Personal Advocate & Liaison (PAL) Family Medicine 03/28/23 07/31/23 Alfonso Renteria MD [address] [facility] 200 [place] [address] Assigned Neuroscience Provider 04/02/23 09/29/24 Cheng Todd PA-C [address] [place] [address] [phone] Assigned PCP 04/30/23 07/15/23 Radha Lomeli APRN INSURANCE RISK ANALYST [address] [place] [address] Assigned Heart and Vascular Provider 05/28/23 Jelena David OD [facility] [facility] [place] [address] Ophthalmology 06/15/23 Pao Joseph RN Personal Advocate & Liaison (PAL) Nurse 08/01/23 11/07/23 Esha Grimm PA-C [address] [place] [phone] Assigned PCP 07/16/23 Valery Veronica PA-C [address] [place] [address] Physician [employer] Truck Driver Dermatology 09/19/23 Rey Tay MD [address] [place] [address] Gastroenterology 09/20/23 Rocky Zepeda DO [address] [place] [address] Physician Gastroenterology 09/20/23 Philip Dumont MD [address] [place] [address] Physician Ophthalmology 09/22/23 Meredith Carrera PA-C [address] [place] [address] Assigned Gastroenterology Provider 11/01/23 Neil Kent MD [address] [place] [address] MD Dermatology 11/02/23 [place] [address] [place] [address] 786267 Neurological Surgery 12/26/23 Audrey Waite PA-C [address] [place] [address] Physician [employer] Truck Driver Dermatology 02/28/24 Valery Veronica PA-C [address]263 [address] [place] [address] Physician [employer] Truck Driver Dermatology 04/10/24 Herminia Hatch MD [address] [place] [address] [phone] Assigned Rheumatology Provider 07/02/24 Jelena David OD [address] [facility] [place] [address] Ophthalmology 08/30/24 [place] [address] [place] [address] Assigned Neuroscience Provider 09/30/24 Maru Man PA-C [address] [place] [address] Physician [employer] Truck Driver Dermatology 10/03/24 Maru Man PA-C [address] [place] [address] Physician [employer] Truck Driver Dermatology 10/22/24 Jelena David OD [address] [facility] [place] [address] Assigned Surgical Provider 10/31/24 documented as of this encounter
--- OUTSIDE RECORDS SUMMARY | 2024-11-21 04:15 | XMS_ITS | Encounter Summary ---
Author Organization [facility] Address [address] [place] [address] Care Team Providers Care Truckman Name Role Phone Lita Oseguera Unavailable Unavailable Marija Edgar APRN BATTERY TEST ENGINEER Primary Care Provider + Chanelle Mccann APRN CNM Unavailab le Kyara De La Fuente RN Unavailable [phone] Marija Edgar APRN BATTERY TEST ENGINEER Unavailable Mynor Broussard MD Unavailable [phone] Keisha Dotson MD Unavailable Mary Mejia Unavailable Unavailable Stacey Briones MAKEUP EDITOR Unavailable [phone] Lesley Guillermo CHW Unavailable Mary Mejia Unavailable Unavailable Lita Oseguera Unavailable Unavailable Galo Burrell MD Unavailable Unavailable Cristina Wood Unavailable Lesley Guillermo CHW Unavailable Meredith Bedoya Unavailable Unavailable Cristina Wood Unavailable Diana Desir [facility] Unavailable [phone] Ruhland, Rain Lena PA-C Unavailable Summer Lara MD Unavailable [phone] Summer Lara MD Unavailable [phone] Summer Lara MD Unavailable [phone] Tavia Wyatt MD Unavailable [phone] Johnny Murillo MD Unavailable [phone] Erica Farrell APRN BATTERY TEST ENGINEER Unavailable VikasTeresita H Unavailable Tavia Wyatt MD Unavailable [phone] Diana Desir [facility] Unavailable [phone] Rich Barrett MD Unavailable [phone] Neil Kent MD Unavailable Roney Story [facility] Unavailable Erica Farrell APRN BATTERY TEST ENGINEER Unavailable Diana Desir [facility] Unavailable [phone] Jelena David OD Unavailable Galo Burrell MD Unavailable Unavailable Livan Sharif MD Unavailable Livan Sharif MD Unavailable Catherine Cm MD Unavailable + Valery Veronica PA-C Unavailable [phone] Catherine Cm MD Unavailable + Johnny Murillo MD Unavailable +[phone] Brea Quinn APRN BATTERY TEST ENGINEER Unavailable [phone] Brea Quinn WELDER ASSEMBLER BATTERY TEST ENGINEER Unavailable [phone] Jose Francisco Johnson MD Unavailable Livan Sharif MD Unavailable Catherine Cm MD Unavailable + Sydnie Martinez RN Unavailable Unavailable Alfonso Renteria MD Unavailable [phone] Esha Grimm PA-C Primary Care Provider Cheng Todd PA-C Unavailable Radha Lomeli APRN, CNP Unavailable Jelena David OD Unavailable Pao Joseph RN Unavailable Unavailable Esha Grimm PA-C Unavailable [phone] Valery Veronica PA-C Unavailable Rey Tay MD Unavailable Rocky Zepeda DO Unavailable Philip Dumont MD Unavailable Meredith Carrera PA-C Unavailable Neil Kent MD Unavailable Juan Pablo Emmanuel MD Unavailable Audrey Waite PA-C Unavailable Valery Veronica PA-C Unavailable Herminia Hatch MD Unavailable Jelena David OD Unavailable [phone] Juan Pablo Emmanuel MD Unavailable Maru Man PA-C Unavailable Maru Man PA-C Unavailable Jelena David OD Unavailable Encounter Details Date Type Department Care Team (Late st Contact Info) Description 07/29/2020 MyC Medical Advice [facility] Epilepsy Care [address], [address] [place] [address] Keisha Dotson MD [address] [place] [address] [id number] Social History Tobacco Use Types Packs/Day Years [...] CDT Legal Sex Female 4:13 AM WATER RESOURCES PROJECT MANAGER Gender Identity Female 03/02/2021 5:45 PM CDT Sexual Orientation Straight 02/28/2020 12 :51 AM CDT COVID-19 Exposure Response Date Recorded In the last month, have you been in contact with someone who was confirmed or suspected to have Coronavirus / COVID-19? No / Unsure 07/30/2020 4:53 PM WATER RESOURCES PROJECT MANAGER documented as of this encounter Plan of Treatment Upcoming Encounters Date Type Department Care Team (Late st Contact Info) Description 11/21/2024 7:00 AM CDT Office Visit [address] [phone] Maru Man PA-C [address] [place] [address] [phone] 12/20/2024 2:30 PM CDT Office Visit [facility] [address] [place] [address] Esha Grimm PA-C [address] [place] [phone] 04/16/2025 11:00 AM CDT Virtual Visit [facility] Gastroenterology [address]th [place] [phone] Meredith Carrera PA-C 909 [place] [address] documented as of this encounter Visit Diagnoses Not on filedocumented in this encounter Additional Health Concerns Infection Onset Date Last Indicated Resolved Time Rule Out COVID-19 07/30/2020 07/30/2020 07/30/2020 7:11 PM WATER RESOURCES PROJECT MANAGER Rule Out COVID-19 08/30/2020 08/30/2020 08/30/2020 5:05 PM WATER RESOURCES PROJECT MANAGER Rule Out COVID-19 09/24/2020 09/24/2020 09/24/2020 9:24 AM CDT Rule Out COVID-19 11/05/2020 11/05/2020 11/06/2020 1:09 PM CDT Rule Out COVID-19 05/11/2021 05/11/2021 05/13/2021 10:18 AM CDT Rule Out COVID-19 07/13/2021 07/13/2021 07/14/2021 3:04 PM WATER RESOURCES PROJECT MANAGER Rule Out COVID-19 07/18/2021 07/18/2021 07/20/2021 1:56 PM WATER RESOURCES PROJECT MANAGER COVID-19 07/18/2021 07/18/2021 08/08/2021 11:3 9 PM WATER RESOURCES PROJECT MANAGER Rule Out COVID-19 12/18/2021 12/18/2021 12/19/2021 11:34 AM CDT Rule Out COVID-19 02/24/2022 02/24/2022 02/25/2022 1:08 PM CDT Rule Out COVID-19 04/26/2022 04/26/2022 04/26/2022 6:47 AM CDT Rule Out COVID-19 05/17/2022 05/17/2022 05/17/2022 10:20 PM WATER RESOURCES PROJECT MANAGER Rule Out COVID-19 06/09/2022 06/09/2022 06/09/2022 9:35 AM WATER RESOURCES PROJECT MANAGER COVID-19 06/09/2022 06/09/2022 06/30/2022 11:4 1 PM WATER RESOURCES PROJECT MANAGER Rule Out COVID-19 11/10/2022 11/10/2022 [...] Total Score: 9 06/25/20 7:04 AM WATER RESOURCES PROJECT MANAGER documented as of this encounter Care Teams Truckman Relationship Specialty Start Date End Date Marija Edgar APRN BATTERY TEST ENGINEER PCP - General Nurse Practitioner 04/30/20 04/14/23 Esha Grimm PA-C [address] [place] [phone] PCP - General Family Medicine 05/04/23 Lita Oseguera Personal Advocate & Liaison (PAL) 02/28/20 03/27/23 Chanelle Mccann APRN CNM [id number] [place] [address] 0[address] Assigned OBGYN Provider 05/02/2005/09 Kyara De La Fuente, RN Specialty Weighing Station Operator Neurology 06/04/20 03/05/21 Marija Edgar APRN BATTERY TEST ENGINEER Assigned PCP 06/08/20 04/29/23 Mynor Broussard MD [address] [facility] 500 [place], [place] 021665 Assigned Surgical Provider 06/01/20 11/28/21 Keisha Dotson MD [address] [place], [place] 070305 Assigned Neuroscience Provider 06/04/20 04/01/23 Mary Mejia Financial Resource Worker 08/07/20 08/21/20 Stacey Briones, [facility] Lead Weighing Station Operator Primary Care - CC 08/11/2012/30 Lesley Guillermo, [facility] Community Health Worker 08/11/2010/01 Mary Mejia Financial Resource Worker 09/02/20 10/06/20 Lita Oseguera Personal Advocate & Liaison (PAL) Family Medicine 09/10/20 09/21/20 Galo Burrell MD Assigned Heart and Vascular Provider 10/05/20 04/02/22 Cristina Wood Financial Resource Worker 10/07/20 10/14/20 Lesley Guillermo, [facility] Community Health Worker 10/23/2012/30 Meredith Bedoya Financial Resource Worker 10/23/20 11/23/20 Cristina Wood Financial Resource Worker 02/09/21 02/09/21 Diana Desir, [facility] [address] [place] [address] Pharmacist Pharmacist 04/17/21 Rain Galaviz PA-C [address] [place] [address] [address] [facility] [place] [address] Physician Principal Architect Dermatology 04/28/21 Summer Lara MD [address] [facility] [place] [address] Assigned OBGYN Provider 05/10/2105/23 Summer Lara MD [address] [place] [address] Assigned OBGYN Provider 05/31/21 2 Summer Lara MD [address] [facility] [place] [address] Assigned OBGYN Provider 05/24/2105/30 Tavia Wyatt MD [address] [facility] [place] [address] Dermatology 07/14/21 Johnny Murillo MD [address] [place] [address] Assigned Musculoskeletal Provider 08/30/21 03/17/22 Erica Farrell APRN BATTERY TEST ENGINEER [address] [facility] [address] [place] [address] Nurse Practitioner Cardiovascular Disease 09/09/21 Teresita Bean, [facility] [address] [place] [address] Pharmacist Pharmacist 09/24/21 09/29/21 Tavia Wyatt MD [address] [place] [address] Assigned Surgical Provider 11/29/21 05/07/22 Diana Desir, [facility] [address] [place] [address] Assigned MTM Pharmacist 01/02/22 Rich Barrett MD [address] [place] [address] Physician Ophthalmology 01/21/22 Neil Kent MD 500 [place] [address] Dermatology 02/24/22 Roney Story DPM [address] [facility] [address] [place] [address] Assigned Musculoskeletal Provider 03/20/22 08/13/22 Erica Farrell APRN BATTERY TEST ENGINEER [address] [place] [address] Assigned Heart and Vascular Provider 04/03/22 04/16/22 Diana Desir, [facility] [address] [place] [address] Assigned MTM Pharmacist 04/07/22 Jelena David OD [address] [place] [address] [place] [address] Assigned Surgical Provider 05/08/22 10/08/22 Galo Burrell MD Assigned Heart and Vascular Provider 04/17/22 06/11/22 Livan Sharif MD [address] [place] 626645 Cardiovascular Disease 05/14/22 Livan Sharif MD [address] [place] 814115 Assigned Heart and Vascular Provider 06/12/22 07/23/22 Catherine Cm MD [address] [facility] 947215 Cardiovascular Disease 07/21/22 Valery Veronica PA-C [address] [place] [address] 648305 Physician Principal Architect Dermatology 07/21/22 Catherine Cm MD [address] [place] [address] 834285 Assigned Heart and Vascular Provider 07/24/22 11/05/22 Johnny Murillo MD [address] [place] [address] 211864 Assigned Musculoskeletal Provider 08/14/22 10/08/22 Brea Quinn APRN BATTERY TEST ENGINEER [address] [place] [address] 162845 Nurse Practitioner Dermatology 09/21/22 Brea Quinn APRN BATTERY TEST ENGINEER [address] [place] [address] [place] 611882 Assigned Surgical Provider 10/09/22 05/01/24 [place] [address] [place] [address] Assigned Musculoskeletal Provider 10/09/22 05/01/24 Livan Sharif MD [address] [place] [address] Assigned Heart and Vascular Provider 11/06/22 11/12/22 Catherine Cm MD [address] [place] [address] Assigned Heart and Vascular Provider 11/13/22 05/27/23 Sydnie Martinez RN Personal Advocate & Liaison (PAL) Family Medicine 03/28/23 07/31/23 Alfonso Renteria MD [address] [facility] 200 [place] [address] Assigned Neuroscience Provider 04/02/23 09/29/24 Cheng Todd PA-C [address] [place] [address] Assigned PCP 04/30/23 07/15/23 Radha Lomeli APRN BATTERY TEST ENGINEER [address] [place] [address] Assigned Heart and Vascular Provider 05/28/23 Jelena David OD [address] [facility] [place] [address] MD Ophthalmology 06/15/23 Pao Joseph, RN Personal Advocate & Liaison (PAL) Nurse 08/01/23 11/07/23 Esha Grimm PA-C [address] [place] [phone] Assigned PCP 07/16/23 Valery Veronica PA-C [address] [place] [address] 159595 Physician Principal Architect Dermatology 09/19/23 Rey Tay MD [address] [place] [address] 761265 MD Gastroenterology 09/20/23 Rocky Zepeda DO [address] [place] [address] 364455 Physician Gastroenterology 09/20/23 Philip Dumont MD [address] [place] [address] 394615 Physician Ophthalmology 09/22/23 Meredith Carrera PA-C [address] [place] [address] 648625 Assigned Gastroenterology Provider 11/01/23 Neil Kent MD [address] [place] [address] 317180 Dermatology 11/02/23 [place] [address] [place] [address] Neurological Surgery 12/26/23 Audrey Waite PA-C 500 [place] [address] Physician Principal Architect Dermatology 02/28/24 Valery Veronica PA-C [address] [place] [address] Physician Principal Architect Dermatology 04/10/24 Herminia Hatch MD [address] [place] [address] Assigned Rheumatology Provider 07/02/24 Jelena David OD [address] [place] [address] [place] [address] Ophthalmology 08/30/24 [place] [address] [place] [address] Assigned Neuroscience Provider 09/30/24 Maru Man PA-C [address] [place] [address] Physician Principal Architect Dermatology 10/03/24 Maru Man PA-C [address] [place] [address] 81274 Physician Principal Architect Dermatology 10/22/24 Jelena David OD [address] [place] [address] [place] [address] Assigned Surgical Provider 10/31/24 documented as of this encounter
--- OUTSIDE RECORDS SUMMARY | 2024-11-21 04:15 | XMS_ITS | Encounter Summary ---
Author Organization [facility] Address [address] [place] [address] Care Team Providers Care Codifier Name Role Phone Lita Oseguera Unavailable Unavailable Marija Edgar APRN PIN MACHINE OPERATOR Primary Care Provider + Marija Edgar APRN PIN MACHINE OPERATOR Unavailable Keisha Dotson MD Unavailable Galo Burrell MD Unavailable Unavailable Diana Desir [facility] Unavailable Rain Galaviz PA-C Unavailable Summer Lara MD Unavailable [phone] Tavia Wyatt MD Unavailable Johnny Murillo MD Unavailable Erica Farrell APRN PIN MACHINE OPERATOR Unavailable Tavia Wyatt MD Unavailable Diana Desir [facility] Unavailable Rich Barrett MD Unavailable [phone] Neil Kent MD Unavailable Roney Story DPM Unavailable Erica Farrell APRN PIN MACHINE OPERATOR Unavailable Diana Desir [facility] Unavailable [phone] Jelena David OD Unavailable [phone] Galo Burrell MD Unavailable Unavailable HoLivan MD Unavailable Livan Sharif MD Unavailable IsCatherine hobbs MD Unavailable + Valery Veronica PA-C Unavailable [phone] Catherine Cm MD Unavailable + Johnny Murillo MD Unavailable [phone] Brea Quinn CENTRAL SERVICE SUPPLY DISTRIBUTOR PIN MACHINE OPERATOR Unavailable [phone] Brea Quinn CENTRAL SERVICE SUPPLY DISTRIBUTOR PIN MACHINE OPERATOR Unavailable [phone] Jose Francisco Johnson MD Unavailable Livan Sharif MD Unavailable + IsCatherine boothe MD Unavailable + Sydnie Martinez RN Unavailable Unavailable Alfonso Renteria MD Unavailable Esha Grimm PA-C Primary Care Provider Cheng Todd PA-C Unavailable Radha Lomeli CENTRAL SERVICE SUPPLY DISTRIBUTOR PIN MACHINE OPERATOR Unavailable [phone] Jelena David OD Unavailable Pao Joseph RN Unavailable Unavailable Esha Grimm PA-C Unavailable [phone] Valery Veronica PA-C Unavailable [phone] Rey Tay MD Unavailable Rocky Zepeda DO Unavailable Philip Dumont MD Unavailable [phone] Meredith Carrera PA-C Unavailable [phone] Neil Kent MD Unavailable Juan Pablo Emmanuel MD Unavailable Audrey Waite-C Unavailable [phone] Valery Veronica-C Unavailable Herminia Hatch MD Unavailable Jelena David OD Unavailable Juan Pablo Emmanuel MD Unavailable Maru Man PA-C Unavailable [phone] Maru Man PA-C Unavailable [phone] Jelena David OD Unavailable Encounter Details Date Type Department Care Team (Late st Contact Info) Description 12/03/2021 MyC Medical Advice [facility] Epilepsy [facility] [address] [facility] 255 [place] [address] Keisha Dotson MD 9 [place] [address] Social History Tobacco Use Types [...] Answer Date Recorded PHQ-2 Score 2 09/22/2021 [facility] Occupat ional [facility] - Occupational Stress Questionnaire Answer [...] in a fdc (including now)? No 09/22/2021 Casselberry Depression Scale Answer Date Recorded Casselberry Depression Score 5 01/14/2021 Last EPDS Self Harm Result Not on file 01/14 Education Answer Date Recorded What is the highest level of school you have completed or the highest degree you have received? 12th grade 08/07/2020 Comments No Sex and Gender Information Value Date Recorded Sex Assigned at Female 03/02/2021 5:45 PM CDT Legal Sex Female 4:13 AM FILTER CLEANER Gender Identity Female 03/02/2021 5:45 PM [...] 7:00 AM CDT Office Visit [facility] [address] [phone] Maru Man PA-C [address] [place] [address] 695370 12/20/2024 2:30 PM CDT Office Visit [facility] [address] [place] [address] Esha Grimm PA-C [address] [place] [address] 04/16/2025 11:00 AM CDT Virtual Visit [facility] [address] 4th [place] [phone] Meredith Carrera PA-C [address] [place] [address] 048965 documented as of this encounter Visit Diagnoses Not on filedocumented in this encounter Additional Health Concerns Infection Onset Date Last Indicated Resolved Time Rule Out COVID-19 12/18/2021 12/18/2021 12/19/2021 11:34 AM CDT Rule Out COVID-19 02/24/2022 02/24/2022 02/25/2022 1:08 PM CDT Rule Out COVID-19 04/26/2022 04/26/2022 04/26/2022 6:47 AM CDT Rule Out COVID-19 05/17/2022 05/17/2022 05/17/2022 10:20 PM FILTER CLEANER Rule Out COVID-19 06/09/2022 06/09/2022 06/09/2022 9:35 AM FILTER CLEANER COVID-19 06/09/2022 06/09/2022 06/30/2022 11:4 1 PM FILTER CLEANER Rule Out COVID-19 11/10/2022 11/10/2022 11/11/2022 [...] documented as of this encounter Care Teams Codifier Relationship Specialty Start Date End Date Marija Edgar APRN PIN MACHINE OPERATOR PCP - General Nurse Practitioner 04/30/20 04/14/23 Esha Grimm PA-C [address] [place] [phone] PCP - General Family Medicine 05/04/23 Lita Oseguera Personal Advocate & Liaison (PAL) 02/28/20 03/27/23 Marija Edgar APRN PIN MACHINE OPERATOR Assigned PCP 06/08/20 04/29/23 Keisha Dotson MD [address] [place], [place] 630525 Assigned Neuroscience Provider 06/04/20 04/01/23 Galo Burrell MD Assigned Heart and Vascular Provider 10/05/20 04/02/22 Diana Desir, [facility] [address] [place], [place] [phone] Pharmacist Pharmacist 04/17/21 Rain Galaviz PA-C [address] [place] [address] [place] [address] Physician Tong Hooker Dermatology 04/28/21 Summer Lara MD [address] [place] [address] 610814 Assigned OBGYN Provider 05/31/21 2 Tavia Wyatt MD [address] [place] [address] 978074 Dermatology 07/14/21 Johnny Murillo MD [address] [place] [address] 836664 Assigned Musculoskeletal Provider 08/30/21 03/17/22 Erica Farrell APRN [facility] [address] Nurse Practitioner Cardiovascular Disease 09/09/21 Tavia Wyatt MD [facility] [address] [place], [place] 564980 Assigned Surgical Provider 11/29/21 05/07/22 [facility] [address] [place] [address] Assigned MTM Pharmacist 01/02/22 Rich Barrett MD [address] [place] [address] Physician Ophthalmology 01/21/22 Neil Kent MD [address] [place] [address] Dermatology 02/24/22 Roney Story DPM [address] [facility] [address] [place], [place] 297917 Assigned Musculoskeletal Provider 03/20/22 08/13/22 Erica Farrell APRN PIN MACHINE OPERATOR [address] [place] [address] Assigned Heart and Vascular Provider 04/03/22 04/16/22 Diana Desir, [facility] 3033 [place] [address] Assigned MTM Pharmacist 04/07/22 Jelena David OD [address] [place] [address] Assigned Surgical Provider 05/08/22 10/08/22 Galo Burrell MD Assigned Heart and Vascular Provider 04/17/22 06/11/22 Livan Sharif MD [address] [place] [address] Cardiovascular Disease 05/14/22 Livan Sharif MD [address] [place] [address] Assigned Heart and Vascular Provider 06/12/22 07/23/22 Catherine Cm MD [address] [place] [address] Cardiovascular Disease 07/21/22 Valery Veronica PA-C 909 [place] [address] Physician Tong Hooker Dermatology 07/21/22 Catherine Cm MD [address] [place] [address] [place] [address] Assigned Heart and Vascular Provider 07/24/22 11/05/22 Johnny Murillo MD [facility] [address] 033454 Assigned Musculoskeletal Provider 08/14/22 10/08/22 Brea Quinn APRN PIN MACHINE OPERATOR [address] [place] [address] 446485 Nurse Practitioner Dermatology 09/21/22 Brea Quinn APRN PIN MACHINE OPERATOR 6401 [place] [address] Assigned Surgical Provider 10/09/22 05/01/24 [place] [address] [place] [address] [address] Assigned Musculoskeletal Provider 10/09/22 05/01/24 Livan Sharif MD [address] [facility] [address] [place] 143595 Assigned Heart and Vascular Provider 11/06/22 11/12/22 Catherine Cm MD [address] [facility] [address] [place] 231045 Assigned Heart and Vascular Provider 11/13/22 05/27/23 Sydnie Martinez, VJ Personal Advocate & Liaison (PAL) Family Medicine 03/28/23 07/31/23 Alfonso Renteria MD [address] [facility] [address] [place] [address] Assigned Neuroscience Provider 04/02/23 09/29/24 Cheng Todd PA-C [address] [place] [address] [phone] Assigned PCP 04/30/23 07/15/23 Radha Lomeli APRN PIN MACHINE OPERATOR 6405 [facility] [address] [place] [address] Assigned Heart and Vascular Provider 05/28/23 Jelena David OD [address] [facility] [address] [place] [phone] Ophthalmology 06/15/23 Pao Joseph, VJ Personal Advocate & Liaison (PAL) Nurse 08/01/23 11/07/23 Esha Grimm PA-C [address] [place] [phone] Assigned PCP 07/16/23 Valery Veronica PA-C [address] [place] [address] 352925 Physician Tong Hooker Dermatology 09/19/23 Rey Tay MD [address] [place] [address] 627675 MD Gastroenterology 09/20/23 Rocky Zepeda DO [address] [place] [address] 811555 Physician Gastroenterology 09/20/23 Philip Dumont MD [address] [place] [address] Physician Ophthalmology 09/22/23 Meredith Carrera PA-C [address] [place] [address] 740085 Assigned Gastroenterology Provider 11/01/23 Neil Kent MD [address] [place] [address] [phone] MD Dermatology 11/02/23 [place] [address] [place] [address] [address] Neurological Surgery 12/26/23 Audrey Waite PA-C [address] [place] [address] Physician Tong Hooker Dermatology 02/28/24 Valery Veronica PA-C 406176 [address], [place] [address] Physician Tong Hooker Dermatology 04/10/24 Herminia Hatch MD [facility]5 [place] [address] Assigned Rheumatology Provider 07/02/24 [place] [address] [place] [address] [place] [address] Ophthalmology 08/30/24 [place] [address] [place] [address] Assigned Neuroscience Provider 09/30/24 Maru Man PA-C [address] [place] [address] Physician Tong Hooker Dermatology 10/03/24 Maru Man PA-C [address] [place] [address] Physician Tong Hooker Dermatology 10/22/24 Jelena David OD [address] [facility] [place] [address] Assigned Surgical Provider 10/31/24 documented as of this encounter
--- OUTSIDE RECORDS SUMMARY | 2024-11-21 04:15 | XMS_ITS | Encounter Summary ---
Author Organization [place] Address [address] [place] [address] Care Team Providers Care Touch Up Painter Name Role Phone Lita Oseguera Unavailable Unavailable Marija Edgar APRN RESOLUTION SPECIALIST Primary Care Provider + Marija Edgar APRN RESOLUTION SPECIALIST Unavailable [phone] Mynor Broussard MD Unavailable [phone] Keisha Dotson MD Unavailable [phone] Galo Burrell MD Unavailable Unavailable Diana Desir [facility] Unavailable [phone] Rain Galaviz PA-C Unavailable Summer Lara MD Unavailable [phone] Tavia Wyatt MD Unavailable Johnny Murillo MD Unavailable Erica Farrell APRN RESOLUTION SPECIALIST Unavailable Tavia Wyatt MD Unavailable Diana Desir [facility] Unavailable Rich Barrett MD Unavailable [phone] Neil Kent MD Unavailable Roney StoryM Unavailable Erica Farrell APRN RESOLUTION SPECIALIST Unavailable Diana Desir [facility] Unavailable Jelena David OD Unavailable Galo Burrell MD Unavailable Unavailable Livan Sharif MD Unavailable Livan Sharif MD Unavailable IsCatherine hobbs MD Unavailable + Valery Veronica PA-C Unavailable [phone] Catherine Cm MD Unavailable + Johnny Murillo MD Unavailable [phone] Brea Quinn LEGISLATIVE ASSISTANT RESOLUTION SPECIALIST Unavailable [phone] Brea Quinn LEGISLATIVE ASSISTANT RESOLUTION SPECIALIST Unavailable [phone] Jose Francisco Johnson MD Unavailable Livan Sharif MD Unavailable + IsCatherine hobbs MD Unavailable + Sydnie Martinez RN Unavailable Unavailable Alfonso Renteria MD Unavailable Esha Grimm PA-C Primary Care Provider Cheng Todd PA-C Unavailable Radha Lomeli LEGISLATIVE ASSISTANT RESOLUTION SPECIALIST Unavailable [phone] Jelena David OD Unavailable Pao Joseph RN Unavailable Unavailable Esha Grimm-C Unavailable [phone] Valery Veronica PA-C Unavailable [phone] Rey Tay MD Unavailable Rocky Zepeda DO Unavailable Philip Dumont MD Unavailable Byron Carreranahed Troncoso PA-C Unavailable [phone] Neil Kent MD Unavailable Juan Pablo Emmanuel MD Unavailable Audrey Waite PA-C Unavailable [phone] Valery Veronica PA-C Unavailable Herminia Hatch MD Unavailable Jelena David OD Unavailable Jaun Pablo Emmanuel MD Unavailable Maru ManC Unavailable [phone] Maru ManC Unavailable [phone] Jelena David OD Unavailable Reason for Visit * Reason Onset Date Comments Refill Request 10/31/2021 sertraline Encounter Details Date Type Department Care Team (Late st Contact Info) Description 10/31/[address] [address] Marija Edgar APRN RESOLUTION SPECIALIST [address] [facility] [place] [address] Refill Request (sertraline) Social History Tobacco [...] ways by your partner or ex-partner? No 02 /07/2020 Within the last year, have y ou [...] How often do you attend buddhist or alevism serv ices? Never 09/22/2021 Do you belong [...] Answer Date Recorded PHQ-2 Score 2 09/22/2021 [facility] [place] of Occupat ional Health - Occupational Stress [...] in a fpc (including now)? No 09/22/2021 [place] Depression [...] PM CDT Legal Sex Female 4:13 AM DOWEL PIN MAN Gender Identity Female 03/02/2021 5:45 PM CDT Sexual Orientation Straight 02/28/2020 12 :51 AM CDT COVID-19 Exposure Response Date Recorded In the last 10 days, have yo u been in contact with someone who was confirmed or suspected to have Coronavirus/COVID-19? No / Unsure 10/30/2021 10:32 AM CDT documented as of this encounter Miscellaneous Notes * Telephone Encounter - Diana Desir, [facility] - 11/02/2021 8:58 AM CDT Approved per [place] CPA. Diana Desir PharmD Medication Therapy Management Provider, [facility] Pager: [phone] * Telephone Encounter - Aleyda Scott RN [...] daily. Pt has follow up tomorrow with [facility] pharmacist to continue to work on taper. Appointments in Next Year Nov 03, 2021 3:30 PM Pharmacist Visit with Diana Desir RPH [facility] ([facility] ) [phone] Informed patient that will route refill request [...] can be reached at: Other phone number: [phone] Best Time: ANYTIME Can we leave a detailed message on this number? YES Call taken on 10/31/2021 at 10:31 AM by Amalia Deluca documented in this encounter Plan of Treatment Upcoming Encounters Date Type Department Care Team (Late st Contact Info) Description 11/21/2024 7:00 AM CDT Office Visit [address] [address] Maru Man PA-C [address] [place] [address] 12/20/2024 2:30 PM CDT Office Visit [facility] [address] [place] [phone] Esha Grimm PA-C [address] [place] [address] 04/16/2025 11:00 AM CDT Virtual Visit [facility] [address] [place] [phone] Meredith Carrera PA-C [address] [place] [address] documented as of this encounter Visit Diagnoses [...] Out COVID-19 05/17/2022 05/17/2022 05/17/2022 10:20 PM DOWEL PIN MAN Rule Out COVID-19 06/09/2022 06/09/2022 06/09/2022 9:35 AM DOWEL PIN MAN COVID-19 06/09/2022 06/09/2022 06/30/2022 11:4 1 PM DOWEL PIN MAN Rule Out COVID-19 11/10/2022 11/10/2022 11/11/2022 12:17 [...] documented as of this encounter Care Teams Touch Up Painter Relationship Specialty Start Date End Date Marija Edgar APRN RESOLUTION SPECIALIST PCP - General Nurse Practitioner 04/30/20 04/14/23 Esha Grimm PA-C [address] [place] [phone] PCP - General Family Medicine 05/04/23 Lita Oseguera Personal Advocate & Liaison (PAL) 02/28/20 03/27/23 Marija Edgar APRN RESOLUTION SPECIALIST Assigned PCP 06/08/20 04/29/23 Mynor Broussard MD [address] [address] Assigned Surgical Provider 06/01/20 11/28/21 Keisha Dotson MD [address] [place] [address] Assigned Neuroscience Provider 06/04/20 04/01/23 Galo Burrell MD Assigned Heart and Vascular Provider 10/05/20 04/02/22 Diana Desir [facility] 30[address] [place] [address] Pharmacist Pharmacist 04/17/21 Rain Galaviz PA-C [address] [place] [address] [address] [place], [place] [phone] Physician Impact Hammer Operator Dermatology 04/28/21 Summer Lara MD [address] [place] [address] 389454 Assigned OBGYN Provider 05/31/21 2 Tavia Wyatt MD [address] [place] [address] 869724 Dermatology 07/14/21 Johnny Murillo MD [address] [facility] [address] [place], [place] 856584 Assigned Musculoskeletal Provider 08/30/21 03/17/22 Erica Farrell APRN RESOLUTION SPECIALIST [address] [facility] [address] [place] [address] Nurse Practitioner Cardiovascular Disease 09/09/21 Tavia Wyatt MD [address] [place], [place] [phone] Assigned Surgical Provider 11/29/21 05/07/22 Diana Desir [facility] 30[address] [place] [address] Assigned MTM Pharmacist 01/02/22 Rich Barrett MD [address] [place], [place] 697666 Physician Ophthalmology 01/21/22 Neil Kent MD 500 [place], [place] 020895 Dermatology 02/24/22 Roney Story DPM [address] [facility] [address] [place], [place] 342507 Assigned Musculoskeletal Provider 03/20/22 08/13/22 Erica Farrell APRN RESOLUTION SPECIALIST [facility] [place] [address] Assigned Heart and Vascular Provider 04/03/22 04/16/22 [facility] [address] [place] [address] Assigned MTM Pharmacist 04/07/22 Jelena David OD [address] [facility] [place] [address] Assigned Surgical Provider 05/08/22 10/08/22 Galo Burrell MD Assigned Heart and Vascular Provider 04/17/22 06/11/22 Livan Sharif MD [address] [place] [address] Cardiovascular Disease 05/14/22 Livan Sharif MD [address] [place] [address] Assigned Heart and Vascular Provider 06/12/22 07/23/22 Catherine Cm MD [address] [facility] [address] [place] [address] Cardiovascular Disease 07/21/22 Valery Veronica, PA-C [address] [place] [address] 248055 Physician Impact Hammer Operator Dermatology 07/21/22 Catherine Cm MD [address] [place] [phone] [place] [address] Assigned Heart and Vascular Provider 07/24/22 11/05/22 Johnny Murillo MD [address] [place] [address] 954444 Assigned Musculoskeletal Provider 08/14/22 10/08/22 Brea Quinn APRN RESOLUTION SPECIALIST [address] [place] [address] 753725 Nurse Practitioner Dermatology 09/21/22 Brea Quinn APRN RESOLUTION SPECIALIST [address] [place] [address] [place] 236802 Assigned Surgical Provider 10/09/22 05/01/24 [place] [address] [place] [address] Assigned Musculoskeletal Provider 10/09/22 05/01/24 Livan Sharif MD [address] [place], [place] 640[address] Assigned Heart and Vascular Provider 11/06/22 11/12/22 Catherine Cm MD [address] [place] [address] Assigned Heart and Vascular Provider 11/13/22 05/27/23 Sydnie Martinez RN Personal Advocate & Liaison (PAL) Family Medicine 03/28/23 07/31/23 Alfonso Renteria MD [address] [facility] [address] [place] [address] Assigned Neuroscience Provider 04/02/23 09/29/24 Cheng Todd PA-C [address] [place] [address] [phone] Assigned PCP 04/30/23 07/15/23 Radha Lomeli, ARLENE RESOLUTION SPECIALIST [address] [place] [address] Assigned Heart and Vascular Provider 05/28/23 Jelena David OD [address] [facility] [place] [address] Ophthalmology 06/15/23 Pao Joseph, VJ Personal Advocate & Liaison (PAL) Nurse 08/01/23 11/07/23 Esha Grimm PA-C [address] [place] [phone] Assigned PCP 07/16/23 Valery Veronica PA-C 9 [place], [place] 376235 Physician Impact Hammer Operator Dermatology 09/19/23 Rey Tay MD [address] [place] [address] MD Gastroenterology 09/20/23 Rocky Zepeda DO [address] [place] [address] 608585 Physician Gastroenterology 09/20/23 Philip Dumont MD [address] [place] [address] 048895 Physician Ophthalmology 09/22/23 Meredith Carrera PA-C [address] [place] [address] 660845 Assigned Gastroenterology Provider 11/01/23 Neil Kent MD [address] [address] Dermatology 11/02/23 [place] [address] [place] [address] Neurological Surgery 12/26/23 Audrey Waite PA-C [address] [place] [address] Physician Impact Hammer Operator Dermatology 02/28/24 Valery Veronica PA-C 366732 [facility] [place] [address] Physician Impact Hammer Operator Dermatology 04/10/24 Herminia Hatch MD [address] [place] [address] Assigned Rheumatology Provider 07/02/24 Jelena David OD [address] [place] [address] [place] [address] Ophthalmology 08/30/24 [place] [address] [place] [address] Assigned Neuroscience Provider 09/30/24 Maru Man PA-C [address] [place] [address] Physician Impact Hammer Operator Dermatology 10/03/24 aMru Man PA-C [address] [place] [address] Physician Impact Hammer Operator Dermatology 10/22/24 Jelena David OD [address] [place] [address] [place] [address] Assigned Surgical Provider 10/31/24 documented as of this encounter
--- OUTSIDE RECORDS SUMMARY | 2024-11-21 04:15 | XMS_ITS | Encounter Summary ---
Author Organization [place] Address [address] [place] [address] Care Team Providers Care International Relations Teacher Name Role Phone Lita Oseguera Unavailable Unavailable Marija Edgar APRN MECHANICAL TECH Primary Care Provider + Marija Edgar APRN MECHANICAL TECH Unavailable Keisha Dotson MD Unavailable Galo Burrell MD Unavailable Unavailable Diana Desir [facility] Unavailable Rain Galaviz PA-C Unavailable Summer Lara MD Unavailable [phone] Tavia Wyatt MD Unavailable Johnny Murillo MD Unavailable Erica Farrell APRN MECHANICAL TECH Unavailable Tavia Wyatt MD Unavailable Diana Desir [facility] Unavailable Rich Barrett MD Unavailable [phone] Neil Kent MD Unavailable Roney Story DPM Unavailable Erica Farrell APRN MECHANICAL TECH Unavailable Diana Desir [facility] Unavailable [phone] Jelena David OD Unavailable [phone] Galo Burrell MD Unavailable Unavailable HoLivan MD Unavailable Livan Sharif MD Unavailable IsCatherine hobbs MD Unavailable + Valery Veronica PA-C Unavailable [phone] Catherine Cm MD Unavailable + Johnny Murilol MD Unavailable [phone] Brea Quinn LORRY WEIGHER MECHANICAL TECH Unavailable [phone] Brea Quinn LORRY WEIGHER MECHANICAL TECH Unavailable [phone] Jose Francisco Johnson MD Unavailable Livan Sharif MD Unavailable + IsCatherine boothe MD Unavailable + Sydnie Martinez RN Unavailable Unavailable Alfonso eRnteria MD Unavailable Esha Grimm PA-C Primary Care Provider Cheng Todd PA-C Unavailable Radha Lomeli LORRY WEIGHER MECHANICAL TECH Unavailable [phone] Jelena David OD Unavailable Pao Joseph RN Unavailable Unavailable Esha Grimm PA-C Unavailable [phone] Valery Veronica PA-C Unavailable [phone] Rey Tay MD Unavailable Rocky Zepeda DO Unavailable Philip Dumont MD Unavailable [phone] Meredith Carrera PA-C Unavailable [phone] Neil Kent MD Unavailable Juan Pablo Emmanuel MD Unavailable [phone] Audrey Waite PA-C Unavailable [phone] Valery Veronica PA-C Unavailable [phone] Herminia Hatch MD Unavailable Jelena David OD Unavailable Juan Pablo Emmanuel MD Unavailable [phone] Maru Man PA-C Unavailable [phone] Maru Man PA-C Unavailable [phone] Encounter Details Date Type Department Care Team (Late st Contact Info) Description 12/18/[address] [facility] [id number] [place] [phone] Lauren Claudio PA-C [id number] [place] [address] Social History Tobacco Use Types Packs/Day [...] How often do you attend chur or yarsanism services? 1 to 4 times [...] Answer Date Recorded PHQ-2 Score 1 10/24/2024 [facility] of Occupat ional Health [...] exercise at this level? 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 No / Unsure 04/18/2023 7:29 AM CDT documented as of this encounter Functional Status * Audit-C Score Answer Date of Assessment Author 2 03/28/2024 5:48 PM CDT Bob Diop * Q1: How often do you have a drink containing alcohol? Answer Date of Assessment Author Monthly or less 03/28/2024 5:48 PM CDT Bob Diop * Q2: How many drinks containing alcohol do you have on a typical day when you are drinking? Answer Date of Assessment Author 3 or 4 03/28/2024 5:48 PM CDT Bob Diop * Q3: How often do you have six or more drinks on one occasion? Answer Date of Assessment Author Never 03/28/2024 5:48 PM CDT Bob Diop documented as of this encounter Miscellaneous Notes [...] be reached at: Home number on file [phone] (home) Best Time: ANYTIME Can we leave a detailed message on this number? YES Call taken on 12/18/2021 at 11:01 AM by Amalia Deluca documented in this encounter Plan of Treatment Upcoming Encounters Date Type Department Care Team (Late st Contact Info) Description 11/21/2024 7:00 AM CDT Office Visit [address] [phone] Maru Man PA-C [address] [place] [address] 12/20/2024 2:30 PM CDT Office Visit [address] [phone] Esha Grimm PA-C [id number] [place] [address] 04/16/2025 11:00 AM CDT Virtual Visit [facility] [address] 4th [place] [phone] Meredith Carrera PA-C [address] [place] [address] [phone] documented as of this encounter Visit Diagnoses Not on filedocumented in this encounter Additional Health Concerns Infection Onset Date Last Indicated Resolved Time Rule Out COVID-19 12/18/2021 12/18/2021 12/19/2021 11:34 AM CDT Rule Out COVID-19 02/24/2022 02/24/2022 02/25/2022 1:08 PM CDT Rule Out COVID-19 04/26/2022 04/26/2022 04/26/2022 6:47 AM CDT Rule Out COVID-19 05/17/2022 05/17/2022 05/17/2022 10:20 PM PLASTIC SURGERY MANAGER Rule Out COVID-19 06/09/2022 06/09/2022 06/09/2022 9:35 AM PLASTIC SURGERY MANAGER COVID-19 06/09/2022 06/09/2022 06/30/2022 11:4 1 PM PLASTIC SURGERY MANAGER Rule Out COVID-19 11/10/2022 11/10/2022 11/11/2022 [...] as of this encounter Care Teams International Relations Teacher Relationship Specialty Start Date End Date Marija Edgar APRN MECHANICAL TECH PCP - General Nurse Practitioner 04/30/20 04/14/23 Esha Grimm PA-C [address] [place] [phone] PCP - General Family Medicine 05/04/23 Lita Oseguera Personal Advocate & Liaison (PAL) 02/28/20 03/27/23 Marija Edgar APRN MECHANICAL TECH Assigned PCP 06/08/20 04/29/23 Keisha Dotson MD [address] [place] [address] Assigned Neuroscience Provider 06/04/20 04/01/23 Galo Burrell MD Assigned Heart and Vascular Provider 10/05/20 04/02/22 [facility] [address] [place] [address] Pharmacist Pharmacist 04/17/21 Rain Galaviz PA-C [address] [facility] [place] [address] Physician Cdl Team Truck Driver Dermatology 04/28/21 Summer Lara MD [address] [place] [address] 500904 Assigned OBGYN Provider 05/31/21 2 Tavia Wyatt MD [address] [place] [address] 025744 Dermatology 07/14/21 Johnny Murillo MD [address] [facility] [place] [facility] [address] [place] [address] Assigned Musculoskeletal Provider 08/30/21 03/17/22 Erica Farrell APRN MECHANICAL TECH [address]405 [facility] [address] [place] [address] Nurse Practitioner Cardiovascular Disease 09/09/21 Tavia Wyatt MD [address] [place] [address] Assigned Surgical Provider 11/29/21 05/07/22 Diana Desir, [facility] 3033 [place] [address] Assigned MTM Pharmacist 01/02/22 Rich Barrett MD 3033 [place] [address] Physician Ophthalmology 01/21/22 Neil Kent MD 500 [place] [address] Dermatology 02/24/22 Roney Story DPM [address] [facility] 300 [place] [address] Assigned Musculoskeletal Provider 03/20/22 08/13/22 Erica Farrell APRN MECHANICAL TECH 1700 [place] [address] Assigned Heart and Vascular Provider 04/03/22 04/16/22 Diana Desir, [facility] [address] [place] [address] Assigned MTM Pharmacist 04/07/22 Jelena David OD [address] [facility] [place] [address] Assigned Surgical Provider 05/08/22 10/08/22 Galo Burrell MD Assigned Heart and Vascular Provider 04/17/22 06/11/22 Livan Sharif MD [address] [place] [address] Cardiovascular Disease 05/14/22 Livan Sharif MD [address] [place] [address] Assigned Heart and Vascular Provider 06/12/22 07/23/22 Catherine Cm MD [address] [place] [address] Cardiovascular Disease 07/21/22 Valery Veronica, PA-C [address] [place] [address] 079945 Physician Cdl Team Truck Driver Dermatology 07/21/22 Catherine Cm MD [address] [place] 420535 Assigned Heart and Vascular Provider 07/24/22 11/05/22 Johnny Murillo MD [address] [place] [address] Assigned Musculoskeletal Provider 08/14/22 10/08/22 Brea Quinn APRN MECHANICAL TECH [address] [place] [address] 856805 Nurse Practitioner Dermatology 09/21/22 Brea Quinn APRN MECHANICAL TECH [address] [place] [address] Assigned Surgical Provider 10/09/22 05/01/24 [place] [address] [place] [address], [place] [address] Assigned Musculoskeletal Provider 10/09/22 05/01/24 Livan Sharif MD [address] [place] 738145 Assigned Heart and Vascular Provider 11/06/22 11/12/22 Catherine Cm MD [address] [place] [address] Assigned Heart and Vascular Provider 11/13/22 05/27/23 Sydnie Martinez, VJ Personal Advocate & Liaison (PAL) Family Medicine 03/28/23 07/31/23 Alfonso Renteria MD 5775 [facility] 200 [place] [address] Assigned Neuroscience Provider 04/02/23 09/29/24 Cheng Todd PA-C [address] [place] [address] Assigned PCP 04/30/23 07/15/23 Radha Lomeli APRN MECHANICAL TECH [address] [place] [address] Assigned Heart and Vascular Provider 05/28/23 Jelena David OD [address] [facility] [place] [address] MD Ophthalmology 06/15/23 Pao Joseph, RN Personal Advocate & Liaison (PAL) Nurse 08/01/23 11/07/23 Esha Grimm PA-C [address] [place] [address] Assigned PCP 07/16/23 Valery Veronica PA-C [address] [place] [address] 681415 Physician Cdl Team Truck Driver Dermatology 09/19/23 Rey Tay MD [address] [place] [address] 752035 MD Gastroenterology 09/20/23 Rocky Zepeda DO [address] [place] [address] 843805 Physician Gastroenterology 09/20/23 Philip Dumont MD [address] [place] [address] 482775 Physician Ophthalmology 09/22/23 Meredith Carrera PA-C [address] [place] [address] 946265 Assigned Gastroenterology Provider 11/01/23 Neil Kent MD [address] [place] [address] 038410 Dermatology 11/02/23 [place] [address] [place] [address] Neurological Surgery 12/26/23 Audrey Waite PA-C 500 [place] [address] Physician Cdl Team Truck Driver Dermatology 02/28/24 Valery Veronica PA-C [id number] [address] [place] [address] Physician Cdl Team Truck Driver Dermatology 04/10/24 Herminia Hatch MD [address] [place] [address] Assigned Rheumatology Provider 07/02/24 Jelena David OD [address] [place] [address] [place] [address] Ophthalmology 08/30/24 [place] [address] [place] [address] Assigned Neuroscience Provider 09/30/24 Maru Man PA-C [address] [place] [address] Physician Cdl Team Truck Driver Dermatology 10/03/24 Maru Man PA-C [address] [place] [address] Physician Cdl Team Truck Driver Dermatology 10/22/24 documented as of this encounter
--- OUTSIDE RECORDS SUMMARY | 2024-11-21 04:15 | XMS_ITS | Encounter Summary ---
Author Organization [place] Address [address] [place] [address] Care Team Providers Care All Around Gear Machine Operator Name Role Phone Lita Oseguera Unavailable Unavailable Marija Edgar APRN COMMUNITY RELATIONS REPRESENTATIVE Primary Care Provider + Marija Edgar APRN COMMUNITY RELATIONS REPRESENTATIVE Unavailable [phone] Mynor Broussard MD Unavailable [phone] Keisha Dotson MD Unavailable Galo Burrell MD Unavailable Unavailable Diana Desir [facility] Unavailable Rain Galaviz PA-C Unavailable Summer Lara MD Unavailable [phone] Tavia Wyatt MD Unavailable Johnny Murillo MD Unavailable Erica Farrell APRN COMMUNITY RELATIONS REPRESENTATIVE Unavailable Tavia Wyatt MD Unavailable Diana Desir [facility] Unavailable Rich Barrett MD Unavailable [phone] Neil Kent MD Unavailable Roney StoryM Unavailable Erica Farrell APRN COMMUNITY RELATIONS REPRESENTATIVE Unavailable Diana Desir [facility] Unavailable Jelena David OD Unavailable Galo Burrell MD Unavailable Unavailable Livan Sharif MD Unavailable Livan Sharif MD Unavailable IsCatherine hobbs MD Unavailable + Valery Veronica PA-C Unavailable [phone] Catherine Cm MD Unavailable + Johnny Murillo MD Unavailable [phone] Brea Quinn MOBILE PHLEBOTOMIST COMMUNITY RELATIONS REPRESENTATIVE Unavailable [phone] Brea Quinn MOBILE PHLEBOTOMIST COMMUNITY RELATIONS REPRESENTATIVE Unavailable [phone] Jose Francisco Johnson MD Unavailable Livan Sharif MD Unavailable + IsCatherine hobbs MD Unavailable + Sydnie Martinez RN Unavailable Unavailable Alfonso Renteria MD Unavailable Esha Grimm PA-C Primary Care Provider Cheng Todd PA-C Unavailable Radha Lomeli MOBILE PHLEBOTOMIST COMMUNITY RELATIONS REPRESENTATIVE Unavailable [phone] Jelena David OD Unavailable Pao Joseph RN Unavailable Unavailable Esha Grimm-C Unavailable [phone] Valery Veronica PA-C Unavailable [phone] Rey Tay MD Unavailable Rocky Zepeda DO Unavailable Philip Dumont MD Unavailable Byron Carreranahed Troncoso PA-C Unavailable [phone] Neil Kent MD Unavailable Juan Pablo Emmanuel MD Unavailable Audrey Waite PA-C Unavailable [phone] Valery Veronica PA-C Unavailable [phone] Herminia Hatch MD Unavailable Jelena David OD Unavailable Juan Pablo mEmanuel MD Unavailable [phone] Maru Man-C Unavailable [phone] Maru Man-C Unavailable [phone] Jelena David OD Unavailable Encounter Details Date Type Department Care Team (Late st Contact Info) Description 11/04/2021 MyC Medical Advice [address] [address] Diana Desir, [place] [address] [place] [address] Social History Tobacco Use Types Packs/Day Years [...] How often do you attend bahai or jehovah's witness serv ices? Never 09/22/2021 [...] Answer Date Recorded PHQ-2 Score 2 09/22/2021 [facility] [...] in a longterm (including now)? No 09/22/2021 [place] Depression Scale [...] PM CDT Legal Sex Female 4:13 AM DONATION WORKER Gender Identity Female 03/02/2021 5:45 PM [...] Upcoming Encounters Date Type Department Care Team ([facility] st Contact Info) Description 11/21/2024 7:00 AM CDT Office Visit [facility] [address] [address] Maru Man PA-C [address] [address] 12/20/2024 2:30 PM CDT Office Visit [facility] [address] [place] [address] Esha Grimm PA-C [address] [place] [address] 04/16/2025 11:00 AM CDT Virtual Visit [facility] [address] 4th [place] [phone] Meredith Carrera PA-C 909 [place] [address] documented as of this encounter Visit Diagnoses Not on filedocumented in this encounter Additional Health Concerns Infection Onset Date Last Indicated Resolved Time Rule Out COVID-19 12/18/2021 12/18/2021 12/19/2021 11:34 AM CDT Rule Out COVID-19 02/24/2022 02/24/2022 02/25/2022 1:08 PM CDT Rule Out COVID-19 04/26/2022 04/26/2022 04/26/2022 6:47 AM CDT Rule Out COVID-19 05/17/2022 05/17/2022 05/17/2022 10:20 PM DONATION WORKER Rule Out COVID-19 06/09/2022 06/09/2022 06/09/2022 9:35 AM DONATION WORKER COVID-19 06/09/2022 06/09/2022 06/30/2022 11:4 1 PM DONATION WORKER Rule Out COVID-19 11/10/2022 11/10/2022 11/11/2022 [...] as of this encounter Care Teams All Around Gear Machine Operator Relationship Specialty Start Date End Date Marija Edgar APRN COMMUNITY RELATIONS REPRESENTATIVE PCP - General Nurse Practitioner 04/30/20 04/14/23 Esha Grimm PA-C [address] [place] [address] PCP - General Family Medicine 05/04/23 Lita Oseguera Personal Advocate & Liaison (PAL) 02/28/20 03/27/23 Marija Edgar APRN COMMUNITY RELATIONS REPRESENTATIVE Assigned PCP 06/08/20 04/29/23 Mynor Broussard MD [address] 285815 Assigned Surgical Provider 06/01/20 11/28/21 Keisha Dotson MD 909 [place], [place] 267605 Assigned Neuroscience Provider 06/04/20 04/01/23 Galo Burrell MD Assigned Heart and Vascular Provider 10/05/20 04/02/22 Diana Desir, [facility] 3033 [place] [address] Pharmacist Pharmacist 04/17/21 Rain Galaviz PA-C [address] [place] [address] [place] [address] Physician Crib Clerk Dermatology 04/28/21 Summer Lara MD [address] [place] [address] Assigned OBGYN Provider 05/31/21 Tavia Wyatt MD [address] [place] [address] 884294 Dermatology 07/14/21 Johnny Murillo MD [address] [facility] [address] [place] [address] Assigned Musculoskeletal Provider 08/30/21 03/17/22 Erica Farrell APRN COMMUNITY RELATIONS REPRESENTATIVE [address] [facility] [address] [place] [address] Nurse Practitioner Cardiovascular Disease 09/09/21 Tavia Wyatt MD [address] [place], [place] 113640 Assigned Surgical Provider 11/29/21 05/07/22 Diana Desir, [facility] 3033 [place] [address] Assigned MTM Pharmacist 01/02/22 Rich Barrett MD 3033 [place] [address] Physician Ophthalmology 01/21/22 Neil Ketn MD 500 [place] [address] Dermatology 02/24/22 Roney Story DPM [address] [facility] [address] [place] [address] Assigned Musculoskeletal Provider 03/20/22 08/13/22 Erica Farrell APRN COMMUNITY RELATIONS REPRESENTATIVE 1700 [place] [address] Assigned Heart and Vascular Provider 04/03/22 04/16/22 [facility] 3033 [place] [address] Assigned MTM Pharmacist 04/07/22 Jelena David OD [address] [facility] [place] [address] Assigned Surgical Provider 05/08/22 10/08/22 Galo Burrell MD Assigned Heart and Vascular Provider 04/17/22 06/11/22 Livan Sharif MD [address] [place] [address] Cardiovascular Disease 05/14/22 Livan Sharif MD [address] [place] [address] [place] 558035 Assigned Heart and Vascular Provider 06/12/22 07/23/22 Catherine Cm MD [address] [facility] [place] [address] Cardiovascular Disease 07/21/22 Valery Veronica, PA-C [address] [place] [address] Physician Crib Clerk Dermatology 07/21/22 Catherine Cm MD [address] [place] [id number] [place] 235935 Assigned Heart and Vascular Provider 07/24/22 11/05/22 Johnny Murillo MD [address] [place] [address] Assigned Musculoskeletal Provider 08/14/22 10/08/22 Brea Quinn APRN COMMUNITY RELATIONS REPRESENTATIVE [address] [place] [address] Nurse Practitioner Dermatology 09/21/22 Brea Quinn APRN COMMUNITY RELATIONS REPRESENTATIVE [address] [place] [address] [place] [address] Assigned Surgical Provider 10/09/22 05/01/24 [place] [address] [place] [address] [place] [address] Assigned Musculoskeletal Provider 10/09/22 05/01/24 Livan Sharif MD [address] [facility] [place] [address] Assigned Heart and Vascular Provider 11/06/22 11/12/22 Catherine Cm MD [address] [facility] [address] [place] [address] Assigned Heart and Vascular Provider 11/13/22 05/27/23 Sydnie Martinez RN Personal Advocate & Liaison (PAL) Family Medicine 03/28/23 07/31/23 Alfonso Renteria MD 5775 [facility] 200 [place] [address] Assigned Neuroscience Provider 04/02/23 09/29/24 Cheng Todd PA-C [address] [place] [address] [id number] Assigned PCP 04/30/23 07/15/23 Radha Lomeli APRN COMMUNITY RELATIONS REPRESENTATIVE [address] [facility] [address] [place] [address] Assigned Heart and Vascular Provider 05/28/23 Jelena David OD [address] [facility] [place] [address] Ophthalmology 06/15/23 Pao Joseph RN Personal Advocate & Liaison (PAL) Nurse 08/01/23 11/07/23 Esha Grimm PA-C [address] [place] [address] Assigned PCP 07/16/23 Valery Veronica PA-C [address] [place] [address] Physician Crib Clerk Dermatology 09/19/23 Rey Tay MD [address] [place] [address] MD Gastroenterology 09/20/23 Rocky Zepeda DO [address] [place] [address] Physician Gastroenterology 09/20/23 Philip Dumont MD [address] [place] [address] Physician Ophthalmology 09/22/23 Meredith Carrera PA-C [address] [place] [address] Assigned Gastroenterology Provider 11/01/23 Neil Kent MD [address] 816490 Dermatology 11/02/23 [place] [address] [address] Neurological Surgery 12/26/23 Audrey Waite PA-C [address] [place] [address] Physician Crib Clerk Dermatology 02/28/24 Valery Veronica PA-C 135701 [place] [address] Physician Crib Clerk Dermatology 04/10/24 Herminia Hatch MD [facility]5 [place], [place] [address] Assigned Rheumatology Provider 07/02/24 Jelena David OD [facility]5 [facility] [place] [address] Ophthalmology 08/30/24 [place] [address] [place] [address] Assigned Neuroscience Provider 09/30/24 Maru Man PA-C [address] [place] [address] Physician Crib Clerk Dermatology 10/03/24 Maru Man PA-C [address] [place] [address] Physician Crib Clerk Dermatology 10/22/24 Jelena David OD [address] [place] [address] [place] [address] Assigned Surgical Provider 10/31/24 documented as of this encounter
--- OUTSIDE RECORDS SUMMARY | 2024-11-21 04:15 | XMS_ITS | Encounter Summary ---
Author Organization [place] Address [address] [place] [address] Care Team Providers Care Chef Saucier Name Role Phone Lita Oseguera Unavailable Unavailable Marija Edgar APRN DIRECTORY CLERK Primary Care Provider + Marija Edgar APRN DIRECTORY CLERK Unavailable [phone] Mynor Broussard MD Unavailable [phone] Keisha Dotson MD Unavailable [phone] Galo Burrell MD Unavailable Unavailable Diana Desir [facility] Unavailable Rain Galaviz PA-C Unavailable Summer Lara MD Unavailable [phone] Tavia Wyatt MD Unavailable Johnny Murillo MD Unavailable [phone] Erica Farrell APRN DIRECTORY CLERK Unavailable Tavia Wyatt MD Unavailable Diana Desir [facility] Unavailable [phone] Rich Barrett MD Unavailable [phone] Neil Kent MD Unavailable Roney StoryM Unavailable Erica Farrell APRN DIRECTORY CLERK Unavailable Diana Desir [facility] Unavailable Jelena David OD Unavailable Galo Burrell MD Unavailable Unavailable Livan Sharif MD Unavailable Livan Sharif MD Unavailable IsCatherine hobbs MD Unavailable + Valery Veronica PA-C Unavailable [phone] Catherine Cm MD Unavailable + Johnny Murillo MD Unavailable [phone] Brea Quinn BUILDING CUSTODIAN DIRECTORY CLERK Unavailable [phone] Brea Quinn BUILDING CUSTODIAN DIRECTORY CLERK Unavailable [phone] Jose Francisco Johnson MD Unavailable Livan Sharif MD Unavailable + IsCatherine hobbs MD Unavailable + Sydnie Martinez RN Unavailable Unavailable Alfonso Renteria MD Unavailable Esha Grimm PA-C Primary Care Provider Cheng Todd PA-C Unavailable Radha Lomeli BUILDING CUSTODIAN DIRECTORY CLERK Unavailable [phone] Jelena David OD Unavailable [phone] Pao Joseph RN Unavailable Unavailable Esha Grimm-C Unavailable [phone] Valery Veronica PA-C Unavailable [phone] Rey Tay MD Unavailable Rocky Zepeda DO Unavailable Philip Dumont MD Unavailable [phone] Byron Carreranahed Troncoso PA-C Unavailable [phone] Neil Kent MD Unavailable Juan Pablo Emmanuel MD Unavailable [phone] Audrey Waite PA-C Unavailable [phone] Valery Veronica PA-C Unavailable [phone] Herminia Hatch MD Unavailable Jelena David OD Unavailable Juan Pablo Emmanuel MD Unavailable [phone] Maru Man-C Unavailable [phone] Maru Man-C Unavailable [phone] Jelena David OD Unavailable Encounter Details Date Type Department Care Team (Late st Contact Info) Description 11/16/2021 MyC Medical Advice [address] [address] Diana Desir, [place] [address] [place] [address] Social History Tobacco Use Types Packs/Day Years [...] Answer Date Recorded PHQ-2 Score 2 09/22/2021 [facility] - [...] in a alf (including now)? No 09/22/2021 [place] Depression Scale Answer Date Recorded [place] Depression Score 5 01/14/2021 Last EPDS Self Harm Result Not on file 01/14 Education Answer Date Recorded What is the highest level of school you have completed or the highest degree you have received? 12th grade 08/07/2020 Comments No Sex and Gender Information Value Date Recorded Sex Assigned at Female 03/02/2021 5:45 PM CDT Legal Sex Female 4:13 AM ADJUNCT FACULTY Gender Identity Female 03/02/2021 5:45 PM CDT Sexual Orientation Straight 02/28/2020 12 :51 AM CDT COVID-19 Exposure Response Date Recorded In the last 10 days, have yo u been in contact with someone who was confirmed or suspected to have Coronavirus/COVID-19? No / Unsure 11/12/2021 5:01 PM CDT documented as of this encounter Plan of Treatment Upcoming Encounters Date Type Department Care Team ([facility] st Contact Info) Description 11/21/2024 7:00 AM CDT Office Visit [facility] [address] [address] Maru Man PA-C [address] [address] 12/20/2024 2:30 PM CDT Office Visit [facility] [address] [place] [address] Esha Grimm PA-C [address] [place] [address] 04/16/2025 11:00 AM CDT Virtual Visit [facility] [address] 4th [place] [phone] Meredith Carrera PA-C 909 [place] [address] documented as of this encounter Visit Diagnoses Not on filedocumented in this encounter Additional Health Concerns Infection Onset Date Last Indicated Resolved Time Rule Out COVID-19 12/18/2021 12/18/2021 12/19/2021 11:34 AM CDT Rule Out COVID-19 02/24/2022 02/24/2022 02/25/2022 1:08 PM CDT Rule Out COVID-19 04/26/2022 04/26/2022 04/26/2022 6:47 AM CDT Rule Out COVID-19 05/17/2022 05/17/2022 05/17/2022 10:20 PM ADJUNCT FACULTY Rule Out COVID-19 06/09/2022 06/09/2022 06/09/2022 9:35 AM ADJUNCT FACULTY COVID-19 06/09/2022 06/09/2022 06/30/2022 11:4 1 PM ADJUNCT FACULTY Rule Out COVID-19 11/10/2022 11/10/2022 11/11/2022 12:17 [...] documented as of this encounter Care Teams Chef Saucier Relationship Specialty Start Date End Date Marija Edgar APRN DIRECTORY CLERK PCP - General Nurse Practitioner 04/30/20 04/14/23 Esha Grimm PA-C [address] [place] [phone] PCP - General Family Medicine 05/04/23 Lita Oseguera Personal Advocate & Liaison (PAL) 02/28/20 03/27/23 Marija Edgar APRN DIRECTORY CLERK Assigned PCP 06/08/20 04/29/23 Mynor Broussard MD [address] 369[address] Assigned Surgical Provider 06/01/20 11/28/21 Keisha Dotson MD 909 [place], [place] 421485 Assigned Neuroscience Provider 06/04/20 04/01/23 Galo Burrell MD Assigned Heart and Vascular Provider 10/05/20 04/02/22 Diana Desir, [facility] 3033 [place] [address] Pharmacist Pharmacist 04/17/21 Rain Galaviz PA-C [address] [place] [address] [place] [address] Physician Family Literacy Coordinator Dermatology 04/28/21 Summer Lara MD [address] [place] [address] Assigned OBGYN Provider 05/31/21 Tavia Wyatt MD [address] [place] [address] 434114 Dermatology 07/14/21 Johnny Murillo MD [address] [facility] [address] [place] [address] Assigned Musculoskeletal Provider 08/30/21 03/17/22 Erica Farrell APRN DIRECTORY CLERK 6[address] [facility] [address] [place] [address] Nurse Practitioner Cardiovascular Disease 09/09/21 Tavia Wyatt MD [address] [place], [place] 247780 Assigned Surgical Provider 11/29/21 05/07/22 Diana Desir, [facility] 3033 [place] [address] Assigned MTM Pharmacist 01/02/22 Rich Barrett MD 3033 [place] [address] Physician Ophthalmology 01/21/22 Neil Kent MD 500 [place] [address] Dermatology 02/24/22 Roney Story DPM [address] [facility] [address] [place] [address] Assigned Musculoskeletal Provider 03/20/22 08/13/22 Eriac Farrell APRN DIRECTORY CLERK 1700 [place] [address] Assigned Heart and Vascular Provider 04/03/22 04/16/22 [facility] 3033 [place] [address] Assigned MTM Pharmacist 04/07/22 Jelena David OD [address] [facility] [address] Assigned Surgical Provider 05/08/22 10/08/22 Galo Burrell MD Assigned Heart and Vascular Provider 04/17/22 06/11/22 Livan Sharif MD [address] [place] [address] Cardiovascular Disease 05/14/22 Livan Sharif MD [address] [place] 691865 Assigned Heart and Vascular Provider 06/12/22 07/23/22 Catherine Cm MD [address] [facility]00 [place] [address] Cardiovascular Disease 07/21/22 Valery Veronica, PA-C [address] [place] [address] Physician Family Literacy Coordinator Dermatology 07/21/22 Catherine Cm MD [address] [place] 3545900 [place] [address]695 Assigned Heart and Vascular Provider 07/24/22 11/05/22 Johnny Murillo MD [address] [place] [address] Assigned Musculoskeletal Provider 08/14/22 10/08/22 Brea Quinn APRN DIRECTORY CLERK [address] [place] [address] Nurse Practitioner Dermatology 09/21/22 Brea Quinn APRN DIRECTORY CLERK [address] [place] [address] [place] [address] Assigned Surgical Provider 10/09/22 05/01/24 [place] [address] [place] [address] [place] [address] Assigned Musculoskeletal Provider 10/09/22 05/01/24 Livan Sharif MD [address] [facility]00 [place] [address] Assigned Heart and Vascular Provider 11/06/22 11/12/22 Catherine Cm MD [address] [facility] [address] [place] [address] Assigned Heart and Vascular Provider 11/13/22 05/27/23 Sydnie Martinez RN Personal Advocate & Liaison (PAL) Family Medicine 03/28/23 07/31/23 Alfonso Renteria MD 5775 [facility] 200 [place] [address] Assigned Neuroscience Provider 04/02/23 09/29/24 Cheng Todd PA-C [address] [place] [address] [id number] Assigned PCP 04/30/23 07/15/23 Radha Lomeli APRN DIRECTORY CLERK 6405 [facility] [address] [place] [address] Assigned Heart and Vascular Provider 05/28/23 Jelena David OD [address] [facility] [place] [address] Ophthalmology 06/15/23 Pao Joseph RN Personal Advocate & Liaison (PAL) Nurse 08/01/23 11/07/23 Esha Grimm PA-C [address] [place] [address] Assigned PCP 07/16/23 Valery Veronica PA-C [address] [place] [address] Physician Family Literacy Coordinator Dermatology 09/19/23 Rey Tay MD [address] [place] [address] MD Gastroenterology 09/20/23 Rocky Zepeda DO [address] [place] [address] Physician Gastroenterology 09/20/23 Philip Dumont MD [address] [place] [address] Physician Ophthalmology 09/22/23 Meredith Carrera PA-C [address] [place] [address] Assigned Gastroenterology Provider 11/01/23 Neil Kent MD [address] 982050 Dermatology 11/02/23 [place] [address] [address] Neurological Surgery 12/26/23 Audrey Waite PA-C [address] [place] [address] Physician Family Literacy Coordinator Dermatology 02/28/24 Valery Veronica PA-C 421434 [address] [address] Physician Family Literacy Coordinator Dermatology 04/10/24 Herminia Hatch MD [facility] [place], [place] 55409125 Assigned Rheumatology Provider 07/02/24 Jelena David OD [facility]5 [facility] [place] [address] Ophthalmology 08/30/24 [place] [address] [place] [address] Assigned Neuroscience Provider 09/30/24 Maru Man PA-C [address] [place] [address] Physician Family Literacy Coordinator Dermatology 10/03/24 Maru Man PA-C [address] [place] [address] Physician Family Literacy Coordinator Dermatology 10/22/24 Jelena David OD [address] [place] [address] [place] [address] Assigned Surgical Provider 10/31/24 documented as of this encounter
--- OUTSIDE RECORDS SUMMARY | 2024-11-21 04:15 | XMS_ITS | Encounter Summary ---
Author Organization [facility] Address [address] [place] [address] Care Team Providers Care Utility Worker Forge Name Role Phone Marija Edgra ARLENE CENTRIFUGE OPERATOR Unavailable Diana Desir [facility] Unavailable Rain Galaviz PA-C Unavailable Tavia Wyatt MD Unavailable Erica Farrell APRN CENTRIFUGE OPERATOR Unavailable Rich Barrett MD Unavailable [phone] Neil Kent MD Unavailable Diana Desir [facility] Unavailable [phone] Livan Sharif MD Unavailable Catherine Cm MD Unavailable + Valery Veronica PA-C Unavailable Brea Quinn APRN CENTRIFUGE OPERATOR Unavailable Brea Quinn APRN CENTRIFUGE OPERATOR Unavailable [phone] Jose Francsico Johnson MD Unavailable Catherine Cm MD Unavailable + Sydnie Martinez RN Unavailable Unavailable Alfonso Renteria MD Unavailable [phone] Esha Grimm PA-C Primary Care Provider Cheng Todd PA-C Unavailable Radha Lomeli APRN CENTRIFUGE OPERATOR Unavailable Jelena David OD Unavailable [phone] Pao Joseph RN Unavailable Unavailable Esha Grimm PA-C Unavailable [phone] Valery Veronica PA-C Unavailable [phone] Rey Tay MD Unavailable Rocky Zepeda DO Unavailable Philip Dumont MD Unavailable [phone] Meredith Carrera PA-C Unavailable Neil Kent MD Unavailable Juan Pablo Emmanuel MD Unavailable Audrey Waite PA-C Unavailable JeremíasValery damon PA-C Unavailable Herminia Hatch MD Unavailable Jelena David OD Unavailable Juan Pablo Emmanuel MD Unavailable [phone] Maru Man PA-C Unavailable Maru Man PA-C Unavailable Jelena David OD Unavailable Encounter Details Date Type Department Care Team (Late st Contact Info) Description 04/18/2023 [facility] [address] [place] [address] Mary Calvo Social History Tobacco [...] week 03/10/2023 How often [facility] you [facility]? 1 to 4 times [...] Answer Date Recorded PHQ-2 Score 0 03/10/2023 [facility] of Occupat ional Health - Occupational Stress [...] exercise at this level? 30 min 03/10/2023 [place] Depression Scale Answer Date Recorded Post [place] Depression Score 5 01/14/2021 Last EPDS [...] in an overnight mcfp, or couch-surfing.) Yes 04/18/2023 Are you worried [...] CDT Legal Sex Female 4:13 AM DIRECTOR PRINT Gender Identity Female 03/02/2021 5:45 PM CDT [...] Description 11/21/2024 7:00 AM CDT Office Visit [facility] [employer] [address] [phone] Maru Man PA-C [address] [address] 12/20/2024 2:30 PM CDT Office Visit [facility] [id number] [place] [phone] Esha Grimm PA-C [id number] [place] [phone] 04/16/2025 11:00 AM CDT Virtual Visit [facility] [address] [phone] Meredith Carrera PA-C [address] [place] [address] documented as of this encounter Visit Diagnoses Not on filedocumented in this encounter Additional Health Concerns Infection Onset Date Last Indicated Resolved Time Rule Out COVID-19 12/26/2023 12/26/2023 12/26/2023 9:50 AM CDT Rule Out COVID-19 04/09/2024 04/09/2024 04/10/2024 6:48 PM CDT Rule Out COVID-19 10/04/2024 10/04/2024 10/05/2024 9:42 AM CDT Rule Out COVID-19 11/20/2024 11/20/2024 Assessment Noted Time PHQ-9 Depression Total Score: 5 08/31/20 23 6:49 AM CDT documented as of this encounter Care Teams Utility Worker Forge Relationship Specialty Start Date End Date Esha Grimm PA-C [address] [place] [phone] PCP - General Family Medicine 05/04/23 Marija Edgar APRN CENTRIFUGE OPERATOR Assigned PCP 06/08/20 04/29/23 Diana Desir, [facility] [address] [place], [place] 424296 Pharmacist Pharmacist 04/17/21 Rain Galaviz PA-C [address] [place] [address] [address] [place] [address] Physician Integration Developer Dermatology 04/28/21 Tavia Wyatt MD [address] [place] [address] [address] [place] [address] Dermatology 07/14/21 Erica Farrell APRN CENTRIFUGE OPERATOR [address] [place] [address] Nurse Practitioner Cardiovascular Disease 09/09/21 Rich Barrett MD [address] [place] 722165 Physician Ophthalmology 01/21/22 Neil Kent MD 500 [place] [address] Dermatology 02/24/22 Diana Desir, [facility] 3033 [place], [place] 244196 Assigned MTM Pharmacist 04/07/22 Livan Sharif MD [address] [place] 766255 Cardiovascular Disease 05/14/22 Catherine Cm MD [address] [place] 519705 Cardiovascular Disease 07/21/22 Valery Veronica, PAUcheC [address] [place] [address] 887215 Physician Integration Developer Dermatology 07/21/22 Brea Quinn APRN CENTRIFUGE OPERATOR [address] [place] [address] 211545 Nurse Practitioner Dermatology 09/21/22 Brea Quinn APRN CENTRIFUGE OPERATOR [address] [place] [address] 868002 Assigned Surgical Provider 10/09/22 05/01/24 [place] [address] [place] [address] 366887 Assigned Musculoskeletal Provider 10/09/22 05/01/24 Catherine Cm MD [address] [place] 559655 Assigned Heart and Vascular Provider 11/13/22 05/27/23 Sydnie Martinez, RN Personal Advocate & Liaison (PAL) Family Medicine 03/28/23 07/31/23 Alfonso Renteria MD 5775 [facility] [address] [place] [address] Assigned Neuroscience Provider 04/02/23 09/29/24 Cheng Todd PA-C [address] [place] [address] Assigned PCP 04/30/23 07/15/23 Radha Lomeli APRN CENTRIFUGE OPERATOR [address] [facility] [address] [place], [place] 512415 Assigned Heart and Vascular Provider 05/28/23 Jelena David OD [address] [facility] [place] [address] Ophthalmology 06/15/23 Pao Joseph, VJ Personal Advocate & Liaison (PAL) Nurse 08/01/23 11/07/23 Esha Grimm PA-C [address] [place] [phone] Assigned PCP 07/16/23 Valery Veronica PA-C 9 [place], [place] 670205 Physician Integration Developer Dermatology 09/19/23 Rey Tay MD 909 [place], [place] 852745 Gastroenterology 09/20/23 Rocky Zepeda DO [address] [place] [address] Physician Gastroenterology 09/20/23 Philip Dumont MD [address] [place] [address] Physician Ophthalmology 09/22/23 Meredith Carrera PA-C [address] [place] [address] Assigned Gastroenterology Provider 11/01/23 Niel Kent MD [address] [address] MD Dermatology 11/02/23 [place] [address] [place] [address] Neurological Surgery 12/26/23 Audrey Waite PA-C [address] [place] [address] Physician Integration Developer Dermatology 02/28/24 Valery Veronica PA-C [address] [place] [address] Physician Integration Developer Dermatology 04/10/24 Herminia Hatch MD [address] [place] [address] [id number] Assigned Rheumatology Provider 07/02/24 Jelena David OD [address] [place] [address] [place] [address] Ophthalmology 08/30/24 [place] [address] [place] [address] Assigned Neuroscience Provider 09/30/24 Maru Man PA-C [address] [place] [address] Physician Integration Developer Dermatology 10/03/24 Maru Man PA-C [address] [place] [address] Physician Integration Developer Dermatology 10/22/24 Jelena David OD 3[address] [facility] [place] [address] Assigned Surgical Provider 10/31/24 documented as of this encounter
--- OUTSIDE RECORDS SUMMARY | 2024-11-21 04:15 | XMS_ITS | Encounter Summary ---
Author Organization [facility] Address [address] [place] [address] Care Team Providers Care Registered Public Surveyor Name Role Phone Lita Oseguera Unavailable Unavailable Marija Edgar APRN CAR SEAT UPHOLSTERER Primary Care Provider + Chanelle Mccann APRN CNM Unavailab le Kyara De La Fuente RN Unavailable [phone] Marija Edgar APRN CAR SEAT UPHOLSTERER Unavailable [phone] Mynor Broussard MD Unavailable [phone] Keisha Dotson MD Unavailable Mary Mejia Unavailable Unavailable Stacey Briones MANAGER DIVERSITY Unavailable [phone] Lesley Guillermo CHW Unavailable Mary Mejia Unavailable Unavailable Lita Oseguera Unavailable Unavailable Galo Burrell MD Unavailable Unavailable Cristina Wood Unavailable Lesley Guillermo CHW Unavailable Meredith Bedoya Unavailable Unavailable Cristina Wood Unavailable Diana Desir [facility] Unavailable [phone] [place], Rain Lena PA-C Unavailable Summer Lara MD Unavailable [phone] Summer Lara MD Unavailable [phone] Summer Lara MD Unavailable [phone] Tavia Wyatt MD Unavailable [phone] Johnny Murillo MD Unavailable [phone] Erica Farrell APRN CAR SEAT UPHOLSTERER Unavailable VikasTeresita H Unavailable Tavia Wyatt MD Unavailable [phone] Diana Desir [facility] Unavailable [phone] Rich Barrett MD Unavailable [phone] Neil Kent MD Unavailable Roney Story [facility] Unavailable Erica Farrell APRN CAR SEAT UPHOLSTERER Unavailable Diana Desir [facility] Unavailable [phone] Jelena David OD Unavailable Galo Burrell MD Unavailable Unavailable Livan Sharif MD Unavailable Livan Sharif MD Unavailable Catherine Cm MD Unavailable + Valery Veronica PA-C Unavailable [phone] Catherine Cm MD Unavailable + Johnny Murillo MD Unavailable [phone] Qunin APRN CAR SEAT UPHOLSTERER Unavailable [phone] Brea Quinn YIELD ANALYST CAR SEAT UPHOLSTERER Unavailable [phone] Jose Francisco Johnson MD Unavailable Livan Sharif MD Unavailable Catherine Cm MD Unavailable + Sydnie Martinez RN Unavailable Unavailable Alfonso Renteria MD Unavailable [phone] Esha Grimm PA-C Primary Care Provider Cheng Todd PA-C Unavailable Radha Lomeli APRN, CNP Unavailable Jelena David OD Unavailable [phone] Pao Joseph RN Unavailable Unavailable Esha Grimm PA-C Unavailable [phone] Valery Veronica PA-C Unavailable Rey Tay MD Unavailable Rocky Zepeda DO Unavailable Philip Dumont MD Unavailable Meredith Carrera PA-C Unavailable Neil Kent MD Unavailable Juan Pablo Emmanuel MD Unavailable Audrey Waite PA-C Unavailable Valery Veronica PA-C Unavailable Herminia Hatch MD Unavailable Jelena David OD Unavailable [phone] Juan Pablo Emmanuel MD Unavailable Maru Man PA-C Unavailable Maru Man PA-C Unavailable Jelena David OD Unavailable Encounter Details Date Type Department Care Team (Late st Contact Info) Description 08/01/2020 [facility] [address] [place] [phone] Marija Edgar APRN CAR SEAT UPHOLSTERER [address] [place] [address] Social History Tobacco Use Types Packs/Day [...] CDT Legal Sex Female 4:13 AM NATIONAL SALES ASSOCIATE Gender Identity Female 03/02/2021 5:45 PM CDT Sexual Orientation Straight 02/28/2020 12 :51 AM CDT COVID-19 Exposure Response Date Recorded In the last month, have you been in contact with someone who was confirmed or suspected to have Coronavirus / COVID-19? No / Unsure 07/30/2020 4:53 PM NATIONAL SALES ASSOCIATE documented as of this encounter Miscellaneous Notes * Telephone Encounter - Estephania Black RN - 08/01/2020 9:11 AM NATIONAL SALES ASSOCIATE Schedule patient for Zio Patch. Detailed message left on phone and through [employer]. Estephania Black RN Flex ONAL SALES ASSOCIATE * Telephone Encounter - Marija Edgar APRN CNP - 08/01/2020 8:46 AM NATIONAL SALES ASSOCIATE Please help patient schedule her zio patch. This order has been in place since 05/2020 and a new order was placed this week. ONAL SALES ASSOCIATE documented in this encounter Plan of Treatment Upcoming Encounters Date Type Department Care Team (Late st Contact Info) Description 11/21/2024 7:00 AM CDT Office Visit [address] [phone] Maru Man PA-C [address] [place] [address] 12/20/2024 2:30 PM CDT Office Visit [facility] [address] [place] [phone] Esha Grimm PA-C [address] [place] [address] 04/16/2025 11:00 AM CDT Virtual Visit [facility] [address] [place] [phone] Meredith Carrera PA-C [address] [place] [address] documented as of this encounter Visit Diagnoses Not on filedocumented in this encounter Additional Health Concerns Infection Onset Date Last Indicated Resolved Time Rule Out COVID-19 08/30/2020 08/30/2020 08/30/2020 5:05 PM NATIONAL SALES ASSOCIATE Rule Out COVID-19 09/24/2020 09/24/2020 09/24/2020 9:24 AM CDT Rule Out COVID-19 11/05/2020 11/05/2020 11/06/2020 1:09 PM CDT Rule Out COVID-19 05/11/2021 05/11/2021 05/13/2021 10:18 AM CDT Rule Out COVID-19 07/13/2021 07/13/2021 07/14/2021 3:04 PM NATIONAL SALES ASSOCIATE Rule Out COVID-19 07/18/2021 07/18/2021 07/20/2021 1:56 PM NATIONAL SALES ASSOCIATE COVID-19 07/18/2021 07/18/2021 08/08/2021 11:3 9 PM NATIONAL SALES ASSOCIATE Rule Out COVID-19 12/18/2021 12/18/2021 12/19/2021 11:34 AM CDT Rule Out COVID-19 02/24/2022 02/24/2022 02/25/2022 1:08 PM CDT Rule Out COVID-19 04/26/2022 04/26/2022 04/26/2022 6:47 AM CDT Rule Out COVID-19 05/17/2022 05/17/2022 05/17/2022 10:20 PM NATIONAL SALES ASSOCIATE Rule Out COVID-19 06/09/2022 06/09/2022 06/09/2022 9:35 AM NATIONAL SALES ASSOCIATE COVID-19 06/09/2022 06/09/2022 06/30/2022 11:4 1 PM NATIONAL SALES ASSOCIATE Rule Out COVID-19 11/10/2022 11/10/2022 11/11/2022 12:17 PM CDT Rule Out COVID-19 03/07/2023 03/07/2023 03/07/2023 1:20 PM CDT Rule Out COVID-19 12/26/2023 12/26/2023 12/26/2023 9:50 AM CDT Rule Out COVID-19 04/09/2024 04/09/2024 04/10/2024 6:48 PM CDT Rule Out COVID-19 10/04/2024 10/04/2024 10/05/2024 9:42 AM CDT Rule Out COVID-19 11/20/2024 11/20/2024 Assessment Noted Time PHQ-9 Depression Total Score: 9 06/25/20 20 7:04 AM NATIONAL SALES ASSOCIATE documented as of this encounter Care Teams Registered Public Surveyor Relationship Specialty Start Date End Date Marija Edgar APRN CNP PCP - General Nurse Practitioner 04/30/20 04/14/23 Esha Grimm PAUcheC [address] [place] [phone] PCP - General Family Medicine 05/04/23 Lita Oseguera Personal Advocate & Liaison (PAL) 02/28/20 03/27/23 Chanelle Mccann APRN CNM [address] [facility] [facility] 200 [place], [place] 240437 Assigned OBGYN Provider 05/02/2005/09 Kyara De La Fuente, RN Specialty Black Oxide Coating Equipment Tender Neurology 06/04/20 03/05/21 Marija Edgar APRN CAR SEAT UPHOLSTERER Assigned PCP 06/08/20 04/29/23 Mynor Broussard MD 6363 [facility] 500 [place], [place] 994715 Assigned Surgical Provider 06/01/20 11/28/21 Keisha Dotson MD 9 [place], [place] 659655 Assigned Neuroscience Provider 06/04/20 04/01/23 Mary Mejia Financial Resource Worker 08/07/20 08/21/20 Stacey Briones, [facility] Lead Black Oxide Coating Equipment Tender Primary Care - CC 08/11/2012/30 Lesley Guillermo, [facility] Community Health Worker 08/11/2010/01 Mary Mejia Financial Resource Worker 09/02/20 10/06/20 Lita Oseguera Personal Advocate & Liaison (PAL) Family Medicine 09/10/20 09/21/20 Galo Burrell MD Assigned Heart and Vascular Provider 10/05/20 04/02/22 Cristina Wood Financial Resource Worker 10/07/20 10/14/20 Lesley Guillermo, [facility] Community Health Worker 10/23/2012/30 Meredith Bedoya Financial Resource Worker 10/23/20 11/23/20 Cristina Wood Financial Resource Worker 02/09/21 02/09/21 Diana Desir, [facility] [address] [place] [address] Pharmacist Pharmacist 04/17/21 Rain Galaviz PA-C [address] [place] [address] [address] [place], [place] [phone] Physician Supervisor Laboratory Animal Facility Dermatology 04/28/21 Summer Lara MD [address] [place], [place] 901344 Assigned OBGYN Provider 05/10/2105/23 Summer Lara MD [address] [place], [place] 31230454 Assigned OBGYN Provider 05/31/21 2 Summer Lara MD [address] [place], [place] [phone] Assigned OBGYN Provider 05/24/2105/30 Tavia Wyatt MD [address] [place], [place] [phone] Dermatology 07/14/21 Johnny Murillo MD [address] [facility] [address] [place], [place] 213934 Assigned Musculoskeletal Provider 2/20/22 9/7/22 Erica Farrell APRN CAR SEAT UPHOLSTERER [address] [facility] [address] [place] 930625 Nurse Practitioner Cardiovascular Disease 09/09/21 Teresita Bean, [facility] [address] [facility] [address] [place] [phone] Pharmacist Pharmacist 09/24/21 09/29/21 Tavia Wyatt MD [address] [place], [place] 403080 Assigned Surgical Provider 11/29/21 05/07/22 [facility] [address] [place] [address] Assigned MTM Pharmacist 01/02/22 Rich Barrett MD [facility] [place] [address] Physician Ophthalmology 01/21/22 Neil Kent MD 500 [place], [place] 637755 Dermatology 02/24/22 Roney Story DPM [address] [facility] [address] [place], [place] 530027 Assigned Musculoskeletal Provider 03/20/22 08/13/22 Erica Farrell APRN CAR SEAT UPHOLSTERER 1700 [place] [address] Assigned Heart and Vascular Provider 04/03/22 04/16/22 Diana Desir, [facility] 30[address] [place], [place] 112286 Assigned MTM Pharmacist 04/07/22 Jelena David OD [address] [place] [address] Assigned Surgical Provider 05/08/22 10/08/22 Galo Burrell MD Assigned Heart and Vascular Provider 04/17/22 06/11/22 Livan Sharif MD [address] [place], [place] 678065 Cardiovascular Disease 05/14/22 Livan Sharif MD [address] [place], [place] 643305 Assigned Heart and Vascular Provider 06/12/22 07/23/22 Catherine Cm MD [address] [place] [address] Cardiovascular Disease 07/21/22 Valery Veronica, PA-C [address]09 [place] [address] Physician Supervisor Laboratory Animal Facility Dermatology 07/21/22 Catherine Cm MD [address] [place], [place] 923255 Assigned Heart and Vascular Provider 07/24/22 11/05/22 Johnny Murillo MD [address] [place] [address] Assigned Musculoskeletal Provider 08/14/22 10/08/22 Brea Quinn APRN CAR SEAT UPHOLSTERER [address] [place] [address] Nurse Practitioner Dermatology 09/21/22 Brea Quinn APRN CAR SEAT UPHOLSTERER 6401 [facility] [place], [place] 084542 Assigned Surgical Provider 10/09/22 05/01/24 [place] [address] [facility] 300 [place], [place] 715327 Assigned Musculoskeletal Provider 10/09/22 05/01/24 Livan Sharif MD 6[address] [facility] [address] [place] [address] Assigned Heart and Vascular Provider 11/06/22 11/12/22 Catherine Cm MD [address] [facility] [address] [place] [address] Assigned Heart and Vascular Provider 11/13/22 05/27/23 Sydnie Martinez RN Personal Advocate & Liaison (PAL) Family Medicine 03/28/23 07/31/23 Alfonso Renteria MD 5775 [facility] 200 [place] [address] Assigned Neuroscience Provider 04/02/23 09/29/24 Cheng Todd PA-C [address] [place] [address] Assigned PCP 04/30/23 07/15/23 Radha Lomeli APRN CAR SEAT UPHOLSTERER 6[address] [facility] [address] [place] [address] Assigned Heart and Vascular Provider 05/28/23 Jelena David OD [address] [place] [address] MD Ophthalmology 06/15/23 Pao Joseph, VJ Personal Advocate & Liaison (PAL) Nurse 08/01/23 11/07/23 Esha Grimm PA-C [address] [place] [address] Assigned PCP 07/16/23 Valery Veronica PA-C [address] [place] [address] 293465 Physician Supervisor Laboratory Animal Facility Dermatology 09/19/23 Rey Tay MD [address] [place] [address] 988825 Gastroenterology 09/20/23 Rocky Zepeda DO [address] [place] [address] 546455 Physician Gastroenterology 09/20/23 Philip Dumont MD [address] [place] [address] Physician Ophthalmology 09/22/23 Meredith Carrera PA-C [address] [place] [address] Assigned Gastroenterology Provider 11/01/23 Neil Kent MD [address] [place] [address] Dermatology 11/02/23 [place] [address] [place] [address] Neurological Surgery 12/26/23 Audrey Waite PA-C [address] [place] [address] Physician Supervisor Laboratory Animal Facility Dermatology 02/28/24 Valery Veronica PA-C 789691 [address] [place] [address] Physician Supervisor Laboratory Animal Facility Dermatology 04/10/24 Herminia Hatch MD [facility] [place], [place] 50411125 Assigned Rheumatology Provider 07/02/24 Jelena David OD [address] [place] [address] [place] [address] Ophthalmology 08/30/24 [place] [address] [place] [address] Assigned Neuroscience Provider 09/30/24 Maru Man PA-C [address] [place] [address] Physician Supervisor Laboratory Animal Facility Dermatology 10/03/24 Maru Man PA-C [address] [address] Physician Supervisor Laboratory Animal Facility Dermatology 10/22/24 Jelena David OD [address] [place] [address] [place] [address] Assigned Surgical Provider 10/31/24 documented as of this encounter
--- OUTSIDE RECORDS SUMMARY | 2024-11-21 04:15 | XMS_ITS | Encounter Summary ---
Author Organization [facility] Address [address] [place] [address] Care Team Providers Care Enforcement Manager Name Role Phone Lita Oseguera Unavailable Unavailable Marija Edgar APRN PARCEL POST ORDER CLERK Primary Care Provider + Marija Edgar APRN PARCEL POST ORDER CLERK Unavailable [phone] Mynor Broussard MD Unavailable [phone] Keisha Dotson MD Unavailable Galo Burrell MD Unavailable Unavailable Diana Desir [facility] Unavailable Rain Galaviz PA-C Unavailable Summer Lara MD Unavailable [phone] Tavia Wyatt MD Unavailable Johnny Murillo MD Unavailable [phone] Erica Farrell APRN PARCEL POST ORDER CLERK Unavailable Tavia Wyatt MD Unavailable Diana Desir [facility] Unavailable Rich Barrett MD Unavailable [phone] Neil Kent MD Unavailable Roney StoryM Unavailable Erica Farrell APRN PARCEL POST ORDER CLERK Unavailable Diana Desir [facility] Unavailable Jelena David OD Unavailable Galo Burrell MD Unavailable Unavailable Livan Sharif MD Unavailable Livan Sharif MD Unavailable IsCatherine hobbs MD Unavailable + Valery Veronica PA-C Unavailable [phone] Catherine Cm MD Unavailable + Johnny Murillo MD Unavailable [phone] Brea Quinn SPUD SORTER PARCEL POST ORDER CLERK Unavailable [phone] Brea Quinn SPUD SORTER PARCEL POST ORDER CLERK Unavailable [phone] Jose Francisco Johnson MD Unavailable Livan Sharif MD Unavailable + IsCatherine hobbs MD Unavailable + Sydnie Martinez RN Unavailable Unavailable Alfonso Renteria MD Unavailable Esha Grimm PA-C Primary Care Provider Cheng Todd PA-C Unavailable Radha Lomeli SPUD SORTER PARCEL POST ORDER CLERK Unavailable [phone] Jelena David OD Unavailable Pao Joseph RN Unavailable Unavailable Esha Grimm-C Unavailable [phone] Valery Veronica PA-C Unavailable [phone] Rey Tay MD Unavailable Rocky Zepeda DO Unavailable Philip Dumont MD Unavailable [phone] Byron Carreranahed Troncoso PA-C Unavailable [phone] Neil Kent MD Unavailable Juan Pablo Emmanuel MD Unavailable Audrey Waite PA-C Unavailable [phone] Valery Veronica PA-C Unavailable [phone] Herminia Hatch MD Unavailable Jelena David OD Unavailable Juan Pablo Emmanuel MD Unavailable [phone] Maru Man-C Unavailable [phone] Maru Man-C Unavailable [phone] Jelena David OD Unavailable [phone] Encounter Details Date Type Department Care Team (Late st Contact Info) Description 10/17/2021 [facility] Medical Advice [address] [address] Diana Desir, [place] [address] [place] [address] Social History Tobacco Use Types Packs/Day Years [...] How often do you attend spiritism or restoration serv ices? Never 09/22/2021 Do [...] Answer Date Recorded PHQ-2 Score 2 09/22/2021 [facility] [...] health care facility (including now)? No 09/22/2021 [place] Depression [...] CDT Legal Sex Female 4:13 AM FIRE SPRINKLER SERVICE TECHNICIAN Gender Identity Female 03/02/2021 5:45 PM [...] Upcoming Encounters Date Type Department Care Team ([facility] st Contact Info) Description 11/21/2024 7:00 AM CDT Office Visit [facility] [address] [address] Maru Man PA-C [address] [address] 12/20/2024 2:30 PM CDT Office Visit [facility] [address] [place] [address] Esha Grimm PA-C [address] [place] [address] 04/16/2025 11:00 AM CDT Virtual Visit [facility] [address] 4th [place] [phone] Meredith Carrera PA-C [address] [place] [address] documented as of this encounter Visit Diagnoses Not on filedocumented in this encounter Additional Health Concerns Infection Onset Date Last Indicated Resolved Time Rule Out COVID-19 12/18/2021 12/18/2021 12/19/2021 11:34 AM CDT Rule Out COVID-19 02/24/2022 02/24/2022 02/25/2022 1:08 PM CDT Rule Out COVID-19 04/26/2022 04/26/2022 04/26/2022 6:47 AM CDT Rule Out COVID-19 05/17/2022 05/17/2022 05/17/2022 10:20 PM FIRE SPRINKLER SERVICE TECHNICIAN Rule Out COVID-19 06/09/2022 06/09/2022 06/09/2022 9:35 AM FIRE SPRINKLER SERVICE TECHNICIAN COVID-19 06/09/2022 06/09/2022 06/30/2022 11:4 1 PM FIRE SPRINKLER SERVICE TECHNICIAN Rule Out COVID-19 11/10/2022 11/10/2022 11/11/2022 [...] documented as of this encounter Care Teams Enforcement Manager Relationship Specialty Start Date End Date Marija Edgar APRN PARCEL POST ORDER CLERK PCP - General Nurse Practitioner 04/30/20 04/14/23 Esha Grimm PA-C [address] [place] [phone] PCP - General Family Medicine 05/04/23 Lita Oseguera Personal Advocate & Liaison (PAL) 02/28/20 03/27/23 Marija Edgar APRN PARCEL POST ORDER CLERK Assigned PCP 06/08/20 04/29/23 Mynor Broussard MD [address] [id number] Assigned Surgical Provider 06/01/20 11/28/21 Keisha Dotson MD 909 [place], [place] 602105 Assigned Neuroscience Provider 06/04/20 04/01/23 Galo Burrell MD Assigned Heart and Vascular Provider 10/05/20 04/02/22 Diana Desir, [facility] 3033 [place] [address] Pharmacist Pharmacist 04/17/21 Rain Galaviz PA-C [address] [place] [address] [place] [address] Physician Sole Leather Cutting Machine Operator Dermatology 04/28/21 Summer Lara MD [address] [place] [address] Assigned OBGYN Provider 05/31/21 Tavia Wyatt MD [address] [place] [address] Dermatology 07/14/21 Johnny Murillo MD [facility] [facility] [address] [place] [address] Assigned Musculoskeletal Provider 08/30/21 03/17/22 Erica Farrell APRN PARCEL POST ORDER CLERK 6405 [facility] [address] [place] [address] Nurse Practitioner Cardiovascular Disease 09/09/21 Tavia Wyatt MD [address] [place], [place] 859540 Assigned Surgical Provider 11/29/21 05/07/22 Diana Desir, [facility] 3033 [place] [address] Assigned MTM Pharmacist 01/02/22 Rich Barrett MD 3033 [place] [address] Physician Ophthalmology 01/21/22 Neil Kent MD 500 [place] [address] Dermatology 02/24/22 Roney Story DPM [address] [facility] [address] [place] [address] Assigned Musculoskeletal Provider 03/20/22 08/13/22 Erica Farrell APRN PARCEL POST ORDER CLERK 1700 [place] [address] Assigned Heart and Vascular Provider 04/03/22 04/16/22 [facility] [address] [place] [address] Assigned MTM Pharmacist 04/07/22 [place] [address] [place] [address] [place] [address] Assigned Surgical Provider 05/08/22 10/08/22 Galo Burrell MD Assigned Heart and Vascular Provider 04/17/22 06/11/22 Livan Sharif MD [address] [place] [address] Cardiovascular Disease 05/14/22 Livan Sharif MD [address] [place] [id number] Assigned Heart and Vascular Provider 06/12/22 07/23/22 Catherine Cm MD [address] [facility]00 [place] [address] Cardiovascular Disease 07/21/22 Valery Veronica, PAUcheC [address] [place] [address] 067855 Physician Sole Leather Cutting Machine Operator Dermatology 07/21/22 Catherine Cm MD [address] [place] [phone] [place] 262705 Assigned Heart and Vascular Provider 07/24/22 11/05/22 Johnny Murillo MD [address] [place] [address] Assigned Musculoskeletal Provider 08/14/22 10/08/22 Brea Quinn APRN PARCEL POST ORDER CLERK [address] [place] [address] [id number] Nurse Practitioner Dermatology 09/21/22 Brea Quinn APRN PARCEL POST ORDER CLERK [address] [place] [address] [place] [address] Assigned Surgical Provider 10/09/22 05/01/24 [place] [address] [place] [address] 666797 Assigned Musculoskeletal Provider 10/09/22 05/01/24 Livan Sharif MD [address] [facility] [facility]00 [place] 609605 Assigned Heart and Vascular Provider 11/06/22 11/12/22 Catherine Cm MD [address] [facility] [address] [place] [address] Assigned Heart and Vascular Provider 11/13/22 05/27/23 Sydnie Martinez RN Personal Advocate & Liaison (PAL) Family Medicine 03/28/23 07/31/23 Alfonso Renteria MD 5775 [facility] 200 [place] [address] Assigned Neuroscience Provider 04/02/23 09/29/24 Cheng Todd PA-C [address] [place] [address] [id number] Assigned PCP 04/30/23 07/15/23 Radha Lomeli APRN PARCEL POST ORDER CLERK [address] [place] [address] Assigned Heart and Vascular Provider 05/28/23 Jelena David OD [address] [place] [address] Ophthalmology 06/15/23 Pao Joseph RN Personal Advocate & Liaison (PAL) Nurse 08/01/23 11/07/23 Esha Grimm PA-C [address] [place] [address] Assigned PCP 07/16/23 Valery Veronica PA-C [address] [place] [address] Physician Sole Leather Cutting Machine Operator Dermatology 09/19/23 Rey Tay MD [address] [place] [address] MD Gastroenterology 09/20/23 Rocky Zepeda DO [address] [place] [address] Physician Gastroenterology 09/20/23 Philip Dumont MD [address] [place] [address] Physician Ophthalmology 09/22/23 Meredith Carrera PA-C [address] [place] [address] Assigned Gastroenterology Provider 11/01/23 Neil Kent MD [address] [address] Dermatology 11/02/23 [place] [address] [place] [address] Neurological Surgery 12/26/23 Audrey Waite PA-C [address] [place] [address] Physician Sole Leather Cutting Machine Operator Dermatology 02/28/24 Valery Veronica PA-C [id number] [address] [place] [address] Physician Sole Leather Cutting Machine Operator Dermatology 04/10/24 Herminia Hatch MD [facility] [place] [place], [place] 48272[address] Assigned Rheumatology Provider 07/02/24 Jelena David OD [facility] [place] [address] Ophthalmology 08/30/24 [place] [address] [place] [address] Assigned Neuroscience Provider 09/30/24 Maru Man PA-C [address] [place] [address] Physician Sole Leather Cutting Machine Operator Dermatology 10/03/24 Maru Man PA-C [address] [place] [address] Physician Sole Leather Cutting Machine Operator Dermatology 10/22/24 Jelena David OD [address] [place] [address] [place] [address] Assigned Surgical Provider 10/31/24 documented as of this encounter
--- OUTSIDE RECORDS SUMMARY | 2024-11-21 04:15 | XMS_ITS | Encounter Summary ---
Author Organization [facility] Address [address] [place] [address] Care Team Providers Care Qc Lab Technician Name Role Phone Marija Edgar APRN BARBER SHOP MANAGER Primary Care Provider + Marija Edgar APRN BARBER SHOP MANAGER Unavailable Diana Desir [facility] Unavailable Rain Galaviz PA-C Unavailable Tavia Wyatt MD Unavailable Erica Farrell APRN BARBER SHOP MANAGER Unavailable Rich Barrett MD Unavailable [phone] Neil Kent MD Unavailable Diana Desir [facility] Unavailable [phone] Livan Sharif MD Unavailable Catherine Cm MD Unavailable + Valery Veronica PA-C Unavailable [phone] Brea Quinn APRN BARBER SHOP MANAGER Unavailable Brea Quinn APRN, CNP Unavailable Jose Francisco Johnson MD Unavailable Catherine Cm MD Unavailable + Sydnie Martinez RN Unavailable Unavailable Alfonso Renteria MD Unavailable [phone] Esha Grimm PA-C Primary Care Provider Cheng Todd PA-C Unavailable Armani Radha Sia JACOBS CNP Unavailable Jelena David OD Unavailable [phone] Pao Joseph RN Unavailable Unavailable Esha Grimm PA-C Unavailable [phone] Valery Veronica PA-C Unavailable Rey Tay MD Unavailable Rocky Zepeda DO Unavailable Philip Dumont MD Unavailable Meredith Carrera PA-C Unavailable [phone] Neil Kent MD Unavailable Juan Pablo Emmanuel MD Unavailable Audrey Waite PA-C Unavailable JeremíasValery damon PA-C Unavailable Herminia Hatch MD Unavailable Jelena David OD Unavailable Juan Pablo Emmanuel MD Unavailable Maru Man PA-C Unavailable Maru Man PA-C Unavailable Jelena David OD Unavailable Encounter Details Date Type Department Care Team (Late st Contact Info) Description 04/12/2023 [facility] Heart [address] [phone] Livan Sharif MD [address] [place] [address] Social History Tobacco Use Types Packs/Day Years [...] attend [facility] or hoahaoism services? 1 to 4 [...] Answer Date Recorded PHQ-2 Score 0 03/10/2023 [facility] - Occupational Stress Questionnaire Answer Date Recorded [...] slept in a mcfp (including now)? 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 Kim Swann, We are in [place], but asked a tech here to check the photo. He said the spot you chose is OK but he thinks we should have the [facility] techs check in with you as you may need to have some extra prep gelif you have have issues with the pads. We are reaching out to that [facility] team to let them know you are having some issues. Team [address] [place] [address] Sharif [phone] documented in this encounter Plan of Treatment Upcoming Encounters Date Type Department Care Team (Late st Contact Info) Description 11/21/2024 7:00 AM CDT Office Visit [facility] [address] [address] Maru Man PA-C [address] [address] 12/20/2024 2:30 PM CDT Office Visit [facility] [address] [place] [address] Esha Grimm PA-C [address] [place] [address] 04/16/2025 11:00 AM CDT Virtual Visit [facility] G[facility] [address] [phone] Meredith Carrera PA-C [address] [place] [address] [phone] documented as of this encounter Visit Diagnoses [...] documented as of this encounter Care Teams Qc Lab Technician Relationship Specialty Start Date End Date Marija Edgar APRN BARBER SHOP MANAGER PCP - General Nurse Practitioner 04/30/20 04/14/23 Esha Grimm PA-C [address] [place] [address] PCP - General Family Medicine 05/04/23 Marija Edgar APRN BARBER SHOP MANAGER Assigned PCP 06/08/20 04/29/23 [facility] 3033 [place] [address] Pharmacist Pharmacist 04/17/21 Rain Galaviz PA-C [address] [place] [address] [address] [place] [address] Physician Procurement Services Manager Dermatology 04/28/21 Tavia Wyatt MD [address] [place] [address] [address] [place] [address] Dermatology 07/14/21 Erica Farrell APRN BARBER SHOP MANAGER [address] [place] [address] Nurse Practitioner Cardiovascular Disease 09/09/21 Rich Barrett MD [address] [place] [address] Physician Ophthalmology 01/21/22 Neil Kent MD 500 [place] [address] Dermatology 02/24/22 Diana Desir, [facility] 3033 [place] [address] Assigned [place] Pharmacist 04/07/22 Livan Sharif MD [address] [place] [address] Cardiovascular Disease 05/14/22 Catherine Cm MD [address] [place] [address] Cardiovascular Disease 07/21/22 Valery Veronica, PA-C [address] [place] [address] Physician Procurement Services Manager Dermatology 07/21/22 Brea Quinn APRN BARBER SHOP MANAGER [address] [place] [address] Nurse Practitioner Dermatology 09/21/22 Brea Quinn APRN BARBER SHOP MANAGER [address] [place] [address] Assigned Surgical Provider 10/09/22 05/01/24 [place] [address] [place] [address] Assigned Musculoskeletal Provider 10/09/22 05/01/24 Catherine Cm MD [address] [place] [address] Assigned Heart and Vascular Provider 11/13/22 05/27/23 Sydnie Martinez, RN Personal Advocate & Liaison (PAL) Family Medicine 03/28/23 07/31/23 Alfonso Renteria MD 5775 [facility] 200 [place] [address] Assigned Neuroscience Provider 04/02/23 09/29/24 Cheng Todd PA-C [address] [place] [address] [phone] Assigned PCP 04/30/23 07/15/23 Radha Lomeli APRN BARBER SHOP MANAGER [address] [facility] [address] [place], [place] 131835 Assigned Heart and Vascular Provider 05/28/23 Jelena David OD [address] [facility] [address] [place] [id number] Ophthalmology 06/15/23 Pao Joseph RN Personal Advocate & Liaison (PAL) Nurse 08/01/23 11/07/23 Esha Grimm PA-C [address] [place] [address] Assigned PCP 07/16/23 Valery Veronica PA-C [address] [place] [address] 661195 Physician Procurement Services Manager Dermatology 09/19/23 Rey Tay MD [address] [place] [address] [phone] MD Gastroenterology 09/20/23 Rocky Zepeda DO [address] [place] [address] 605165 Physician Gastroenterology 09/20/23 Philip Dumont MD [address] [place] [address] 188505 Physician Ophthalmology 09/22/23 Meredith Carrera PA-C [address] [place] [address] 372895 Assigned Gastroenterology Provider 11/01/23 Neil Kent MD [address] [place] [address] 537170 MD Dermatology 11/02/23 [place] [address] [address] Neurological Surgery 12/26/23 Audrey Waite PA-C 500 [place] [address] Physician Procurement Services Manager Dermatology 02/28/24 Valery Veronica PA-C 3[address]69 [address], [place] [address] Physician Procurement Services Manager Dermatology 04/10/24 Herminia Htach MD [facility]5 [place] [address] Assigned Rheumatology Provider 07/02/24 Jelena David OD [address] [facility] [place] [address] Ophthalmology 08/30/24 [place] [address] [place] [address] Assigned Neuroscience Provider 09/30/24 Maru Man PA-C [address] [place] [address] Physician Procurement Services Manager Dermatology 10/03/24 Maru Man PA-C [address] [place] [address] Physician Procurement Services Manager Dermatology 10/22/24 Jelena David, SONJA [address] [facility] [place] [address] Assigned Surgical Provider 10/31/24 documented as of this encounter
--- OUTSIDE RECORDS SUMMARY | 2024-11-21 04:15 | XMS_ITS | Encounter Summary ---
Author Organization [place] Address [address] [place] [address] Care Team Providers Care Product Safety Administrator Name Role Phone Diana Desir [facility] Unavailable Rain Galaviz PA-C Unavailable [phone] Tavia Wyatt MD Unavailable Erica Farrell APRN LATEX DIPPER Unavailable Rich Barrett MD Unavailable [phone] Neil Kent MD Unavailable DesirDiana [facility] Unavailable Livan Sharif MD Unavailable Catherine Cm MD Unavailable + Valery Veronica PA-C Unavailable [phone] Brea Quinn APRN LATEX DIPPER Unavailable [phone] Brea Quinn CHIROPRACTIC NEUROLOGIST LATEX DIPPER Unavailable Jose Francisco Johnson MD Unavailable Sydnie Martinez RN Unavailable Unavailable Alfonso Renteria MD Unavailable [phone] Esha Grimm PA-C Primary Care Provider [phone] Cheng Todd PA-C Unavailable Radha Lomeli APRN LATEX DIPPER Unavailable Jelena David OD Unavailable Pao Joseph RN Unavailable Unavailable Esha Grimm PA-C Unavailable [phone] Valery Veronica PA-C Unavailable Rey Tay MD Unavailable Rocky Zepeda DO Unavailable Philip Dumont MD Unavailable Meredith Carrera PA-C Unavailable Neil Kent MD Unavailable Juan Pablo Emmanuel MD Unavailable Audrey Waite PA-C Unavailable JeremíasValery damon PA-C Unavailable Herminia Hatch MD Unavailable Jelena David OD Unavailable Juan Pablo Emmanuel MD Unavailable Maru Man PA-C Unavailable Maru Man PA-C Unavailable Reason for Visit * Reason Onset Date Comments Appointment 06/17/2023 Encounter Details Date Type Department Care Team (Late st Contact Info) Description 06/17/2023 Telephone [facility] [address] [place] [address] Esha Grimm PA-C [address] [place] [address] Appointment Social History Tobacco Use [...] Answer Date Recorded PHQ-2 Score 1 10/24/2024 [facility] - Occupational Stress Questionnaire Answer Date [...] exercise at this level? 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 Gender Identity Female 03/02/2021 5:45 PM [...] they are all full today Lulu Day/ Hardware Technician LE SCHOOL DIRECTOR * Telephone Encounter - Rosio Eller - 06/17/2023 7:13 AM CST Reason for Call: Appointment Request Patient requesting this type of appt: follow-up breast pain Requested provider: any Reason patient unable to be scheduled: Not within requested timeframe When does patient want to be seen/preferred time: today or Tuesday Comments: patient wondering if she could be worked in [employer] Could we send this information to you in [employer] or would you prefer to receive a phone call?: Patient would prefer a phone call Okay to leave a detailed message?: Yes at Home number on file [phone] (home) Call taken on 06/17/2023 at 7:13 AM by Rosio Eller LE SCHOOL DIRECTOR documented in this encounter Plan of Treatment Upcoming Encounters Date Type Department Care Team (Late st Contact Info) Description 11/21/2024 7:00 AM CDT Office Visit [address] [phone] Maru Man PA-C [address] [address] 12/20/2024 2:30 PM CDT Office Visit [facility] [address] [place] [address] Esha Grimm PA-C [address] [place] [address] 04/16/2025 11:00 AM CDT Virtual Visit [facility] [address] [place] [phone] Meredith Carrera PA-C [address] [place] [address] [phone] documented as of this encounter Visit Diagnoses Not on filedocumented in this encounter Additional Health Concerns Infection Onset Date Last Indicated Resolved Time Rule Out COVID-19 12/26/2023 12/26/2023 12/26/2023 9:50 AM CDT Rule Out COVID-19 04/09/2024 04/09/2024 04/10/2024 6:48 PM CDT Rule Out COVID-19 10/04/2024 10/04/2024 10/05/2024 9:42 AM CDT Assessment Noted Time PHQ-9 Depression Total Score: 6 05/16/20 23 9:29 AM MIDDLE SCHOOL DIRECTOR documented as of this encounter Care Teams Product Safety Administrator Relationship Specialty Start Date End Date Esha Grimm PA-C [address] [place] [address] PCP - General Family Medicine 05/04/23 Diana Desir, [facility] [address] [place], [place] [phone] Pharmacist Pharmacist 04/17/21 Rain aGlaviz PA-C [address] [place] [address] DR [facility] [address] Physician Cognos Consultant Dermatology 04/28/21 Tavia Wyatt MD [address] [place] [address] [place]MA [place]UTSON [address] Dermatology 07/14/21 Erica Farrell APRN LATEX DIPPER [address] [place] [address] Nurse Practitioner Cardiovascular Disease 09/09/21 Rich Barrett MD [address] [place] [id number] Physician Ophthalmology 01/21/22 Neil Kent MD [address] [place] [address] 517995 Dermatology 02/24/22 [facility] [address] [place] [address] 368346 Assigned [place] Pharmacist 04/07/22 Livan Sharif MD [address] [facility] [place] [address] Cardiovascular Disease 05/14/22 Catherine Cm MD [address] [facility] [place] 612975 Cardiovascular Disease 07/21/22 Valery Veronica, PA-C [address] [place] [address] 745875 Physician Cognos Consultant Dermatology 07/21/22 Brea Quinn APRN LATEX DIPPER 500 [place], [place] 168855 Nurse Practitioner Dermatology 09/21/22 Brea Quinn APRN LATEX DIPPER [address] [place] 379422 Assigned Surgical Provider 10/09/22 05/01/24 [place] [address] [facility] 300 [place] [address] Assigned Musculoskeletal Provider 10/09/22 05/01/24 Sydnie Martinez RN Personal Advocate & Liaison (PAL) Family Medicine 03/28/23 07/31/23 Alfonso Renteria MD 5775 [facility] 200 [place], [place] 044236 Assigned Neuroscience Provider 04/02/23 09/29/24 Cheng Todd PA-C [address] [place] [address] [phone] Assigned PCP 04/30/23 07/15/23 Radha Lomeli APRN LATEX DIPPER [address] [facility] [address] [place] 222735 Assigned Heart and Vascular Provider 05/28/23 Jelena David OD [address] [facility] [place] [address] Ophthalmology 06/15/23 Pao Joseph, VJ Personal Advocate & Liaison (PAL) Nurse 08/01/23 11/07/23 Esha Grimm PA-C [address] [place] [phone] Assigned PCP 07/16/23 Valery Veronica PA-C [address] [place] [address] 644855 Physician Cognos Consultant Dermatology 09/19/23 Rey Tay MD [address] [place] [address] [id number] MD Gastroenterology 09/20/23 Rocky Zepeda DO [address] [place] [address] [phone] Physician Gastroenterology 09/20/23 Philip Dumont MD [address] [place] [address] 676675 Physician Ophthalmology 09/22/23 Meredith Carrera PA-C [address] [place] [address] 012875 Assigned Gastroenterology Provider 11/01/23 Neil Kent MD [address] [place] [address] Dermatology 11/02/23 [place] [address] [place] [address] Neurological Surgery 12/26/23 Audrey Waite PA-C [address] [place] [address] Physician Cognos Consultant Dermatology 02/28/24 Valery Veronica PA-C [address] [place] [address] Physician Cognos Consultant Dermatology 04/10/24 Herminia Hatch MD [address] [place] [address] Assigned Rheumatology Provider 07/02/24 Jelena David OD [address] [facility] [place] [address] Ophthalmology 08/30/24 [place] [address] [place] [address] Assigned Neuroscience Provider 09/30/24 Maru Man PA-C [address] [place] [address] Physician Cognos Consultant Dermatology 10/03/24 Maru Man PA-C [address] [place] [address] Physician Cognos Consultant Dermatology 10/22/24 documented as of this encounter
--- OUTSIDE RECORDS SUMMARY | 2024-11-21 04:16 | XMS_ITS | Encounter Summary ---
Author Organization [facility] Address [address] [place] [address] Care Team Providers Care Proration Clerk Name Role Phone Diana Desir [facility] Unavailable [phone] Rain Galaviz PA-C Unavailable Tavia Wyatt MD Unavailable Erica Farrell APRN DIRECTOR SPECIAL EDUCATION Unavailable Rich Barrett MD Unavailable [phone] Neil Kent MD Unavailable Diana Desir [facility] Unavailable Livan Sharif MD Unavailable Catherine Cm MD Unavailable + Valery Veronica PA-C Unavailable Brea Quinn COLLEGE TUTOR DIRECTOR SPECIAL EDUCATION Unavailable Brea Quinn COLLEGE TUTOR DIRECTOR SPECIAL EDUCATION Unavailable Jose Francisco Johnson MD Unavailable Alfonso Renteria MD Unavailable [phone] Esha Grimm PA-C Primary Care Provider Rahda Lomeli APRN DIRECTOR SPECIAL EDUCATION Unavailable Jelena David OD Unavailable [phone] Esha Grimm PA-C Unavailable [phone] JeremíasValery damon PA-C Unavailable Rey Tay MD Unavailable Rocky Zepeda DO Unavailable Philip Dumont MD Unavailable [phone] Meredith Carrera PA-C Unavailable [phone] Neil Kent MD Unavailable Juan Pablo Emmanuel MD Unavailable Audrey Waite PA-C Unavailable [phone] JeremíasValery damon PA-C Unavailable Herminia Hatch MD Unavailable Jelena David OD Unavailable Juan Pablo Emmanuel MD Unavailable Maru Man PA-C Unavailable Maru Man PA-C Unavailable Jelena David OD Unavailable Encounter Details Date Type Department Care Team (Late st Contact Info) Description 03/05/2024 [facility] [address] [place] [address] Rebecca Moctezuma Social History Tobacco [...] Answer Date Recorded PHQ-2 Score 1 02/07/2024 [facility] - Occupational [...] exercise at this level? 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 Gender Identity Female 03/02/2021 5:45 PM CDT Sexual Orientation Straight 02/28/2020 12 :51 AM CDT documented as of this encounter Plan of Treatment Upcoming Encounters Date Type Department Care Team (Late st Contact Info) Description 11/21/2024 7:00 AM CDT Office Visit [facility] [address] [address] Maru Man PA-C [address] [address] 12/20/2024 2:30 PM CDT Office Visit [address] [place] [phone] Esha Grimm PA-C [address] [place] [address] 04/16/2025 11:00 AM CDT Virtual Visit [facility] [address] 4th [place] [phone] Meredith Carrera PA-C [address] [place] [address] documented as of this encounter Visit Diagnoses [...] documented as of this encounter Care Teams Proration Clerk Relationship Specialty Start Date End Date Esha Grimm PA-C [address] [place] [address] PCP - General Family Medicine 05/04/23 Diana Desir, [facility] 3033 [place] [address] Pharmacist Pharmacist 04/17/21 Rain Galaviz PA-C [address] [place] [address] DR [facility]OLA [facility] [address] Physician Pinball Machine Repairer Dermatology 04/28/21 Tavia Wyatt MD [address] [place] [address] [address] [place], [place] [phone] Dermatology 07/14/21 Erica Farrell APRN DIRECTOR SPECIAL EDUCATION [address] [place], [place] 540405 Nurse Practitioner Cardiovascular Disease 09/09/21 Rich Barrett MD [address] [place], [place] 473875 Physician Ophthalmology 01/21/22 Neil Kent MD 500 [place], [place] 335645 Dermatology 02/24/22 [facility] 30[address] [place], [place] 434946 Assigned [place] Pharmacist 04/07/22 Livan Sharif MD [address] [place] [address] Cardiovascular Disease 05/14/22 Catherine Cm MD [address] [place] [address] Cardiovascular Disease 07/21/22 Valery Veronica, PA-C [address] [place] [address] Physician Pinball Machine Repairer Dermatology 07/21/22 Brea Quinn APRN DIRECTOR SPECIAL EDUCATION 500 [place] [address] Nurse Practitioner Dermatology 09/21/22 Brea Quinn APRN DIRECTOR SPECIAL EDUCATION 6401 [facility] [place] [address] Assigned Surgical Provider 10/09/22 05/01/24 [place] [address] [place] [facility] 300 [place] [address] Assigned Musculoskeletal Provider 10/09/22 05/01/24 Alfonso Renteria MD 5775 [facility] 200 [place], [place] 218996 Assigned Neuroscience Provider 04/02/23 09/29/24 Radha Lomeli APRN DIRECTOR SPECIAL EDUCATION [address] [facility] [address] [place], [place] 333285 Assigned Heart and Vascular Provider 05/28/23 [place] David OD [address] [place] [address] Ophthalmology 06/15/23 Esha Grimm PA-C [address] [place] [address]83 Assigned PCP 07/16/23 Valery Veronica PA-C 9 [place] [address] Physician Pinball Machine Repairer Dermatology 09/19/23 Rey Tay MD [address] [place] [address] MD Gastroenterology 09/20/23 Rocky Zepeda DO [address] [place] [address] Physician Gastroenterology 09/20/23 Philip Dumont MD [address] [place] [address] Physician Ophthalmology 09/22/23 Meredith Carrera PA-C [address] [place] [address] Assigned Gastroenterology Provider 11/01/23 Neil Kent MD [address] [place] [address] Dermatology 11/02/23 [place] [address] [place] [address] [address] Neurological Surgery 12/26/23 Audrey Waite PA-C [address] [place] [address] Physician Pinball Machine Repairer Dermatology 02/28/24 Valery Veronica PA-C [id number] [address] [place] [address] Physician Pinball Machine Repairer Dermatology 04/10/24 Herminia Hatch MD [address] [place] [address] Assigned Rheumatology Provider 07/02/24 [place] [address] [facility] [place] [address] Ophthalmology 08/30/24 [place] [address] [place] [address] Assigned Neuroscience Provider 09/30/24 Maru Man PA-C [address] [place] [address] Physician Pinball Machine Repairer Dermatology 10/03/24 Maru Man PA-C [address] [place] [address] Physician Pinball Machine Repairer Dermatology 10/22/24 Jelena David OD [address] [facility] [place] [address] Assigned Surgical Provider 10/31/24 documented as of this encounter
--- OUTSIDE RECORDS SUMMARY | 2024-11-21 04:16 | XMS_ITS | Encounter Summary ---
Author Organization [facility] Address [address] [place] [address] Care Team Providers Care Limnology Teacher Name Role Phone Lita Oseguera Unavailable Unavailable Marija Edgar APRN ACCOUNTS RECEIVABLE COORDINATOR Primary Care Provider + Marija Edgar APRN ACCOUNTS RECEIVABLE COORDINATOR Unavailable Mynor Broussard MD Unavailable [phone] Keisha Dotson MD Unavailable Galo Burrell MD Unavailable Unavailable Diana Desir [facility] Unavailable Rain Galaviz PA-C Unavailable [phone] Summer Lara MD Unavailable [phone] Tavia Wyatt MD Unavailable Johnny Murillo MD Unavailable Erica Farrell APRN ACCOUNTS RECEIVABLE COORDINATOR Unavailable Teresita Bean [facility] Unavailable Tavia Wyatt MD Unavailable Diana Desir [facility] Unavailable [phone] Rich Barrett MD Unavailable [phone] Neil Kent MD Unavailable Roney Story DPM Unavailable Erica Farrell EDITORIAL CLERK ACCOUNTS RECEIVABLE COORDINATOR Unavailable Diana Desir [facility] Unavailable [phone] Jelena David OD Unavailable [phone] Galo Burrell MD Unavailable Unavailable Livan Sharif MD Unavailable + Livan Sharif MD Unavailable + Catherine Cm MD Unavailable + Valery Veronica PA-C Unavailable [phone] Catherine Cm MD Unavailable + Johnny Murillo MD Unavailable [phone] Brea Quinn EDITORIAL CLERK ACCOUNTS RECEIVABLE COORDINATOR Unavailable [phone] Brea Quinn EDITORIAL CLERK ACCOUNTS RECEIVABLE COORDINATOR Unavailable [phone] Jose Francisco Johnson MD Unavailable Livan Sharif MD Unavailable + IsCatherine hobbs MD Unavailable + Sydnie Martinez RN Unavailable Unavailable Alfonso Renteria MD Unavailable Esha Grimm-C Primary Care Provider Cheng Todd PA-C Unavailable Radha Lomeli EDITORIAL CLERK ACCOUNTS RECEIVABLE COORDINATOR Unavailable [phone] Jelena David OD Unavailable Pao Joseph RN Unavailable Unavailable Esha Grimm-C Unavailable [phone] JeremíasValery damon PA-C Unavailable [phone] Rey Tay MD Unavailable Rocky Zepeda DO Unavailable Philip Dumont MD Unavailable [phone] Meredith Carrera PA-C Unavailable [phone] Neil Kent MD Unavailable Juan Pablo Emmanuel MD Unavailable Audrey Waite PA-C Unavailable [phone] Valery Veronica PA-C Unavailable [phone] Herminia Hatch MD Unavailable Jelena David OD Unavailable Juan Pablo Emmanuel MD Unavailable [phone] Maru ManC Unavailable [phone] Maru Man PA-C Unavailable [phone] Jelena David OD Unavailable [phone] Encounter Details Date Type Department Care Team (Late st Contact Info) Description 09/24/2021 MyC Medical Advice [facility] [address] [facility] [address] [place] [address] Teresita Bean, [facility] [address] [facility] [place] [address] Social History Tobacco Use [...] How often do you attend jainism or mandaeism serv ices? Never 09/22/2021 Do [...] 2 09/22/2021 [facility] - [...] in a mcfp (including now)? No 09/22/2021 [place] Depression Scale Answer Date Recorded [place] Depression Score 5 01/14/2021 Last EPDS Self Harm Result Not on file 01/14 Education Answer Date Recorded What is the highest level of school you have completed or the highest degree you have received? 12th grade 08/07/2020 Comments No Sex and Gender Information Value Date Recorded Sex Assigned at Female 03/02/2021 5:45 PM CDT Legal Sex Female 4:13 AM CARBONIZER TESTER Gender Identity Female 03/02/2021 5:45 PM CDT [...] Description 11/21/2024 7:00 AM CDT Office Visit [address] [address] Maru Man PA-C [address] [place] [address] 12/20/2024 2:30 PM CDT Office Visit [facility] [address] [place] [phone] Esha Grimm PA-C [address] [place] [address] 04/16/2025 11:00 AM CDT Virtual Visit [facility] [address] 4th [place] [phone] Meredith Carrera PA-C 909 [place] [address] documented as of this encounter Visit Diagnoses Not on filedocumented in this encounter Additional Health Concerns Infection Onset Date Last Indicated Resolved Time Rule Out COVID-19 12/18/2021 12/18/2021 12/19/2021 11:34 AM CDT Rule Out COVID-19 02/24/2022 02/24/2022 02/25/2022 1:08 PM CDT Rule Out COVID-19 04/26/2022 04/26/2022 04/26/2022 6:47 AM CDT Rule Out COVID-19 05/17/2022 05/17/2022 05/17/2022 10:20 PM CARBONIZER TESTER Rule Out COVID-19 06/09/2022 06/09/2022 06/09/2022 9:35 AM CARBONIZER TESTER COVID-19 06/09/2022 06/09/2022 06/30/2022 11:4 1 PM CARBONIZER TESTER Rule Out COVID-19 11/10/2022 11/10/2022 11/11/2022 12:17 PM CDT Rule Out COVID-19 03/07/2023 03/07/2023 03/07/2023 1:20 PM CDT Rule Out COVID-12/26/2023 12/26/2023 12/26/2023 9:50 AM CDT Rule Out COVID-19 04/09/2024 04/09/2024 04/10/2024 6:48 PM CDT Rule Out COVID-19 10/04/2024 10/04/2024 10/05/2024 9:42 AM CDT Rule Out COVID-19 11/20/2024 11/20/2024 Assessment Noted Time PHQ-9 Depression Total Score: 2 04/02/20 10:19 AM CDT documented as of this encounter Care Teams Limnology Teacher Relationship Specialty Start Date End Date Marija Edgar APRN ACCOUNTS RECEIVABLE COORDINATOR PCP - General Nurse Practitioner 04/30/20 04/14/23 Esha Grimm PA-C [address] [place] [phone] PCP - General Family Medicine 05/04/23 Lita Oseguera Personal Advocate & Liaison (PAL) 02/28/20 03/27/23 Marija Edgar APRN ACCOUNTS RECEIVABLE COORDINATOR Assigned PCP 06/08/20 04/29/23 Mynor Broussard MD [address] [address] Assigned Surgical Provider 06/01/20 11/28/21 Keisha Dotson MD 909 [place], [place] 362905 Assigned Neuroscience Provider 06/04/20 04/01/23 Galo Burrell MD Assigned Heart and Vascular Provider 10/05/20 04/02/22 Diana Desir, [facility] [address] [place] [address] Pharmacist Pharmacist 04/17/21 Rain Galaviz PA-C [address] [facility] [place] [address] Physician Nuclear Engineer Dermatology 04/28/21 Summer Lara MD [address] [facility] [place], [place] 627[address] Assigned OBGYN Provider 05/31/21 aTvia Wyatt MD [address] [address] [place], [place] 0988[address] Dermatology 07/14/21 Johnny Murillo MD [address] [place] [address] Assigned Musculoskeletal Provider 08/30/21 03/17/22 Erica Farrell APRN ACCOUNTS RECEIVABLE COORDINATOR 6[address] [facility] [address] [place] [address] Nurse Practitioner Cardiovascular Disease 09/09/21 Teresita Bean [facility] [address] [place] [phone] Pharmacist Pharmacist 09/24/21 09/29/21 Tavia Wyatt MD [address] [place] [address] Assigned Surgical Provider 11/29/21 05/07/22 Diana Desir, [facility] 3033 [place] [address] Assigned MTM Pharmacist 01/02/22 Rich Barrett MD 3033 [place] [address] Physician Ophthalmology 01/21/22 Neil Kent MD 500 [place], [place] 402535 Dermatology 02/24/22 [place] Story DPM [address] [employer] [facility] [address] [place], [place] 115067 Assigned Musculoskeletal Provider 03/20/22 08/13/22 Erica Farrell APRN ACCOUNTS RECEIVABLE COORDINATOR 1700 [place] [address] Assigned Heart and Vascular Provider 04/03/22 04/16/22 Diana Desir, [facility] 30[address] [place] [address] Assigned MTM Pharmacist 04/07/22 Jelena David OD [address] [facility] [place] [address] Assigned Surgical Provider 05/08/22 10/08/22 Galo Burrell MD Assigned Heart and Vascular Provider 04/17/22 06/11/22 Livan Sharif MD 6[address] [facility] [address] [place] 185[address] Cardiovascular Disease 05/14/22 Livan Sharif MD 6[address] [facility] [address] [place] [address] Assigned Heart and Vascular Provider 06/12/22 07/23/22 Catherine Cm MD 6[address] [facility] [address] [place] [address] Cardiovascular Disease 07/21/22 Valery Veronica, PA-C [address] [place] [address] Physician Nuclear Engineer Dermatology 07/21/22 Catherine Cm MD [address] [place] [address]197500 [place] [address] Assigned Heart and Vascular Provider 07/24/22 11/05/22 Johnny Murillo MD [address] [place] [address] 480624 Assigned Musculoskeletal Provider 08/14/22 10/08/22 Brea Quinn APRN ACCOUNTS RECEIVABLE COORDINATOR [address] [place] [address] Nurse Practitioner Dermatology 09/21/22 Brea Quinn APRN ACCOUNTS RECEIVABLE COORDINATOR [address] [place] [address] [place] [address] Assigned Surgical Provider 10/09/22 05/01/24 [place] [address] [place] [address] Assigned Musculoskeletal Provider 10/09/22 05/01/24 Livan Sharif MD [address] [facility] [address] [place] [address] Assigned Heart and Vascular Provider 11/06/22 11/12/22 Catherine Cm MD [address] [facility] [address] [place] [address] Assigned Heart and Vascular Provider 11/13/22 05/27/23 Sydnie Martinez RN Personal Advocate & Liaison (PAL) Family Medicine 03/28/23 07/31/23 Alfonso Renteria MD 57[address] [facility] 200 [place] [address] Assigned Neuroscience Provider 04/02/23 09/29/24 Cheng Todd PA-C [address] [place] [address] Assigned PCP 04/30/23 07/15/23 Radha Lomeli APRN ACCOUNTS RECEIVABLE COORDINATOR [address] [place] [address] Assigned Heart and Vascular Provider 05/28/23 Jelena David OD [address] [place] [address] [place] [address] Ophthalmology 06/15/23 Pao Joseph, VJ Personal Advocate & Liaison (PAL) Nurse 08/01/23 11/07/23 Esha Grimm PA-C [address] [place] [address]219683 Assigned PCP 07/16/23 Valery Veronica PA-C [address] [place] [address] 830015 Physician Nuclear Engineer Dermatology 09/19/23 Rey Tay MD [address] [place] [address] MD Gastroenterology 09/20/23 Rocky Zepeda DO [address] [place] [address] 918525 Physician Gastroenterology 09/20/23 Philip Dumont MD [address] [place] [address] 472745 Physician Ophthalmology 09/22/23 Meredith Carrera PA-C [address] [place] [address] 172795 Assigned Gastroenterology Provider 11/01/23 Neil Kent MD [address] [address] Dermatology 11/02/23 [place] [address] [place], [place] [address] Neurological Surgery 12/26/23 Audrey Waite PA-C [address] [place] [address] 735585 Physician Nuclear Engineer Dermatology 02/28/24 Valery Veronica PA-C [address] [place] [address] Physician Nuclear Engineer Dermatology 04/10/24 Herminia Hatch MD [address] [place] [address] [id number] Assigned Rheumatology Provider 07/02/24 Jelena David OD [address] [place] [address] [place] [address] Ophthalmology 08/30/24 [place] [address] [place] [address] Assigned Neuroscience Provider 09/30/24 Maru Man PA-C [address] [place] [address] Physician Nuclear Engineer Dermatology 10/03/24 Maru Man PA-C [address] [place] [address] Physician Nuclear Engineer Dermatology 10/22/24 Jelena David OD [address] [place] [address] [place] [address] Assigned Surgical Provider 10/31/24 documented as of this encounter
--- OUTSIDE RECORDS SUMMARY | 2024-11-21 04:16 | XMS_ITS | Encounter Summary ---
Author Organization [facility] Address [address] [place] [address] Care Team Providers Care Miter Cutter Name Role Phone Diana Desir [facility] Unavailable [phone] Rain Galaviz PA-C Unavailable Tavia Wyatt MD Unavailable Erica Farrell APRN GALLERY HOST Unavailable Rich Barrett MD Unavailable [phone] Neil Kent MD Unavailable Diana Desir [facility] Unavailable [phone] Livan Sharif MD Unavailable Catherine Cm MD Unavailable + Valery Veronica PA-C Unavailable Brea Quinn SUPERVISOR TRANSFERRING AND BOXING GALLERY HOST Unavailable Brea Quinn SUPERVISOR TRANSFERRING AND BOXING GALLERY HOST Unavailable Jose Francisco Johnson MD Unavailable Alfonso Renteria MD Unavailable [phone] Esha Grimm PA-C Primary Care Provider Radha Lomeli APRN GALLERY HOST Unavailable Jelena David OD Unavailable [phone] Esha Grimm PA-C Unavailable [phone] JeremíasValery damon PA-C Unavailable [phone] Rey Tay MD Unavailable Rocky Zepeda DO Unavailable Philip Dumont MD Unavailable Meredith Carrera PA-C Unavailable [phone] Neil Kent MD Unavailable Juan Pablo Emmanuel MD Unavailable Audrey Waite PA-C Unavailable [phone] JeremíasValery damon PA-C Unavailable Herminia Hatch MD Unavailable Jelena David OD Unavailable Juan Pablo Emmanuel MD Unavailable Maru Man PA-C Unavailable Maru Man PA-C Unavailable Jelena David OD Unavailable Encounter Details Date Type Department Care Team (Late st Contact Info) Description 03/19/2024 [facility] [address] 4th [place] [address] [place] Social History Tobacco [...] often do you attend [facility] or scientology services? 1 to 4 [...] exercise at this level? 30 min 03/10/2023 [place] Depression Scale Answer Date Recorded [place] Depression Score 5 01/14/2021 Last EPDS Self [...] PM CDT Legal Sex Female 4:13 AM DISPLAY SCREEN FABRICATOR Gender Identity Female 03/02/2021 5:45 PM CDT Sexual Orientation Straight 02/28/2020 12 :51 AM CDT documented as of this encounter Plan of Treatment Upcoming Encounters Date Type Department Care Team (Late st Contact Info) Description 11/21/2024 7:00 AM CDT Office Visit [facility] [address] [phone] Maru Man PA-C [address] [address] 12/20/2024 2:30 PM CDT Office Visit [place] [address] [place] [phone] Esha Grimm PA-C [address] [place] [address] 04/16/2025 11:00 AM CDT Virtual [facility] [address] 4th [place] [phone] Meredith Carrera PA-C [address] [place] [address] documented as of this encounter Visit Diagnoses [...] as of this encounter Care Teams Miter Cutter Relationship Specialty Start Date End Date Esha Grimm PA-C [address] [place] [address] PCP - General Family Medicine 05/04/23 Diana Desir, [facility] [address] [place] [address] Pharmacist Pharmacist 04/17/21 Rain Galaviz PA-C [address] [place] [address] DR ARRIOLA [facility] [place] [address] Physician Body Finisher Dermatology 04/28/21 Tavia Wyatt MD [address] [place] [address] DR [address] [place] [id number] Dermatology 07/14/21 Erica Farrell APRN GALLERY HOST [address] [place] 498365 Nurse Practitioner Cardiovascular Disease 09/09/21 Rich Barrett MD [address] [place] 327355 Physician Ophthalmology 01/21/22 Neil Kent MD [address] [place] [address] 879985 MD Dermatology 02/24/22 Diana Desir, [facility] 3033 [place], [place] 001366 Assigned [place] Pharmacist 04/07/22 Livan Sharif MD [address] [address] [place] [address] Cardiovascular Disease 05/14/22 Catherine Cm MD [address] [place] [address] Cardiovascular Disease 07/21/22 Valery Veronica, PA-C [address] [place] [address] Physician Body Finisher Dermatology 07/21/22 Brea Quinn APRN GALLERY HOST 500 [place] [address] Nurse Practitioner Dermatology 09/21/22 Brea Quinn APRN GALLERY HOST 6401 [facility] [place] [address] Assigned Surgical Provider 10/09/22 05/01/24 [place] [address] [place] [facility] 300 [place] [address] Assigned Musculoskeletal Provider 10/09/22 05/01/24 Alfonso Renteria MD 5775 [facility] 200 [place], [place] 293536 Assigned Neuroscience Provider 04/02/23 09/29/24 Radha Lomeli APRN GALLERY HOST 6405 [facility] [address] [place] [address] Assigned Heart and Vascular Provider 05/28/23 [place] OD [address] [place] [address] Ophthalmology 06/15/23 Esha Grimm PA-C [address] [place] [phone] Assigned PCP 07/16/23 Valery Veronica PA-C [address] [place] [address] Physician Body Finisher Dermatology 09/19/23 Rey Tay MD [address] [place] [address] MD Gastroenterology 09/20/23 Rocky Zepeda DO [address] [place] [address] Physician Gastroenterology 09/20/23 Philip Dumont MD [address] [place] [address] Physician Ophthalmology 09/22/23 Meredith Carrera PA-C [address] [place] [address] Assigned Gastroenterology Provider 11/01/23 Neil Kent MD [address] [address] Dermatology 11/02/23 [place] [address] [address] [address] Neurological Surgery 12/26/23 Audrey Waite PA-C [address] [place] [address] Physician Body Finisher Dermatology 02/28/24 Valery Veronica PA-C 8[address]294 [address] [place] [address] Physician Body Finisher Dermatology 04/10/24 Herminia Hatch MD [address] [place] [address] [id number] Assigned Rheumatology Provider 07/02/24 Jelena David OD 3305 [facility] [place] [address] Ophthalmology 08/30/24 [place] [address] [place] [address] Assigned Neuroscience Provider 09/30/24 Maru Man PA-C [address] [place] [address] Physician Body Finisher Dermatology 10/03/24 Maru Man PA-C [address] [place] [address] Physician Body Finisher Dermatology 10/22/24 Jelena David OD 3305 [facility] [place] [address] Assigned Surgical Provider 10/31/24 documented as of this encounter
--- OUTSIDE RECORDS SUMMARY | 2024-11-21 04:16 | XMS_ITS | Encounter Summary ---
Author Organization [facility] Address [address] [place] [address] Care Team Providers Care Solar Crew Member Name Role Phone Diana Desir [facility] Unavailable [phone] Rain Galaviz PA-C Unavailable [phone] Tavia Wyatt MD Unavailable Erica Farrell APRN ANALYTICAL DATA MINER Unavailable Rich Barrett MD Unavailable [phone] Neil Kent MD Unavailable Diana Desir [facility] Unavailable Livan Sharif MD Unavailable Catherine Cm MD Unavailable + Valery Veronica PA-C Unavailable Brea Quinn BUSINESS SYSTEMS ARCHITECT ANALYTICAL DATA MINER Unavailable [phone] Brea Quinn BUSINESS SYSTEMS ARCHITECT ANALYTICAL DATA MINER Unavailable Jose Francisco Johnson MD Unavailable Alfonso Renteria MD Unavailable [phone] Esha Grimm PA-C Primary Care Provider [phone] Radha Lomeli APRN ANALYTICAL DATA MINER Unavailable Jelena David OD Unavailable [phone] Esha Grimm PA-C Unavailable [phone] JeremíasValery damon PA-C Unavailable Rey Tay [...] Team (Late st Contact Info) Description 03/06/2024 [facility] [address] [place] [phone] Ebony Cid APRN ANALYTICAL DATA MINER 500 [place] [address] Social History Tobacco Use [...] 1 02/07/2024 [facility] - Occupational Stress Questionnaire Answer Date [...] exercise at this level? 30 min 03/10/2023 [place] Depression Scale Answer Date Recorded [place] [...] CDT Legal Sex Female 4:13 AM ADVERTISING SPECIALIST Gender Identity Female 03/02/2021 5:45 PM CDT Sexual Orientation Straight 02/28/2020 12 :51 AM CDT documented as of this encounter Plan of Treatment Upcoming Encounters Date Type Department Care Team (Late st Contact Info) Description 11/21/2024 7:00 AM CDT Office Visit [facility] [address] [phone] Maru Man PA-C [address] [address] 12/20/2024 2:30 PM CDT Office Visit [facility] [address] [place] [address] Esha Grimm PA-C [address] [place] [address] 04/16/2025 11:00 AM CDT Virtual Visit [facility] [address] 4th [place] [phone] Meredith Carrera PA-C [address] [place] [address] 106395 documented as of this encounter Visit [...] as of this encounter Care Teams Solar Crew Member Relationship Specialty Start Date End Date Esha Grimm PA-C [address] [place] [address] PCP - General Family Medicine 05/04/23 Diana Desir, [facility] [address] [facility] [place] [address] Pharmacist Pharmacist 04/17/21 Rain Galaviz PA-C [address] [place] [address] [place] [address] Physician Manager Transit Dermatology 04/28/21 Tavia Wyatt MD [address] [place] [address] [address] [place] [address] Dermatology 07/14/21 Erica Farrell APRN ANALYTICAL DATA MINER [address] [place] [address] Nurse Practitioner Cardiovascular Disease 09/09/21 Rich Barrett MD [address] [place] 550085 Physician Ophthalmology 01/21/22 Neil Kent MD [address] [place] [address] 775245 Dermatology 02/24/22 [facility] [address] [place] [address] Assigned [facility] Pharmacist 04/07/22 Livan Sharif MD [address] [place] [address] Cardiovascular Disease 05/14/22 Catherine Cm MD [address] [place] 661225 Cardiovascular Disease 07/21/22 Valery Veronica, PA-C [address] [place] [address] 194715 Physician Manager Transit Dermatology 07/21/22 Brea Quinn APRN ANALYTICAL DATA MINER 500 [place], [place] 611675 Nurse Practitioner Dermatology 09/21/22 Brea Quinn APRN ANALYTICAL DATA MINER 6401 [place] [address] Assigned Surgical Provider 10/09/22 05/01/24 [place] [address] [place] [address] [address] Assigned Musculoskeletal Provider 10/09/22 05/01/24 Alfonso Renteria MD [address] 132896 Assigned Neuroscience Provider 04/02/23 09/29/24 Radha Lomeli APRN ANALYTICAL DATA MINER [address] [place] 0583000 [place], [place] 418845 Assigned Heart and Vascular Provider 05/28/23 Jelena David OD [address] [facility] [place] [address] Ophthalmology 06/15/23 Esha Grimm PA-C [address] [place] [phone] Assigned PCP 07/16/23 Valery Veronica PA-C 9 [place] [address] Physician Manager Transit Dermatology 09/19/23 Rey Tay MD [address] [place] [address] MD Gastroenterology 09/20/23 Rocky Zepeda DO [address] [place] [address] Physician Gastroenterology 09/20/23 Philip Dumont MD [address] [place] [address] 169105 Physician Ophthalmology 09/22/23 Meredith Carrera PA-C [address] [place] [address] Assigned Gastroenterology Provider 11/01/23 Neil Kent MD [address] [place] [address] Dermatology 11/02/23 [place] [address] [place] [address] Neurological Surgery 12/26/23 Audrey Waite PA-C [address] [place] [address] Physician Manager Transit Dermatology 02/28/24 Valery Veronica PA-C 780838 [address] [place] [address] Physician Manager Transit Dermatology 04/10/24 Herminia Hatch MD [facility]5 [place], [place] 66526125 Assigned Rheumatology Provider 07/02/24 Jelena David OD [address] [facility] [address] Ophthalmology 08/30/24 [place] [address] [place] [address] Assigned Neuroscience Provider 09/30/24 Maru Man PA-C [address] [place] [address] Physician Manager Transit Dermatology 10/03/24 Maru Man PA-C [address] [place] [address] Physician Manager Transit Dermatology 10/22/24 Jelena David OD [address] [facility] [address] Assigned Surgical Provider 10/31/24 documented as of this encounter
--- OUTSIDE RECORDS SUMMARY | 2024-11-21 04:16 | XMS_ITS | Encounter Summary ---
Author Organization [facility] Address [address] [place] [address] Care Team Providers Care Plate Finisher Name Role Phone Lita Oseguera Unavailable Unavailable Marija Edgar APRN FOSTER WINDER Primary Care Provider + Marija Edgar APRN FOSTER WINDER Unavailable [phone] Keisha Dotson MD Unavailable Diana Desir [facility] Unavailable Rain Galaviz PA-C Unavailable Tavia Wyatt MD Unavailable Erica Farrell APRN FOSTER WINDER Unavailable Rich Barrett MD Unavailable [phone] Neil Kent MD Unavailable Diana Desir [facility] Unavailable Livan Sharif MD Unavailable Catherine Cm MD Unavailable + Valery Veronica PA-C Unavailable Brea Quinn CONCRETE FINISHING MACHINE OPERATOR FOSTER WINDER Unavailable Brea Quinn CONCRETE FINISHING MACHINE OPERATOR FOSTER WINDER Unavailable Jose Francisco Johnson MD Unavailable Catherine Cm MD Unavailable + Sydnie Martinez RN Unavailable Unavailable Alfonso Renteria MD Unavailable [phone] Esha Grimm PA-C Primary Care Provider Cheng Todd PA-C Unavailable Armani Radha Stovall ARLENE FOSTER WINDER Unavailable Jelena David OD Unavailable Pao Joseph RN Unavailable Unavailable Esha Grimm PA-C Unavailable [phone] Valery Veronica PA-C Unavailable Rey Tay MD Unavailable Rocky Zepeda DO Unavailable Philip Dumont MD Unavailable [phone] Meredith Carrera PA-C Unavailable [phone] Neil Kent MD Unavailable Juan Pablo Emmanuel MD Unavailable [phone] Audrey Waite PA-C Unavailable Valery Veronica PA-C Unavailable Herimnia Hatch MD Unavailable Jelena David OD Unavailable [phone] Juan Pablo Emmanuel MD Unavailable [phone] Maru Man PA-C Unavailable [phone] Maru Man PA-C Unavailable [phone] Jelena David OD Unavailable [phone] Encounter Details Date Type Department Care Team (Late st Contact Info) Description 01/10/2023 MyC Medical Advice [facility] [address] [place] [phone] Lauren Claudio PA-C [address] [place] [address] Social History Tobacco Use Types Packs/Day Years [...] How often do you attend orthodox or mandaeism serv ices? Never 09/22/2021 Do [...] 1 10/11/2022 [facility] ional [facility] [...] a skilled nursing (including now)? No 09/22/2021 [place] Depression Scale Answer Date Recorded [place] Depression Score 5 01/14/2021 Last EPDS Self Harm Result Not on file 01/14 Education Answer Date Recorded What is the highest level of school you have completed or the highest degree you have received? 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 Gender Identity Female 03/02/2021 5:45 PM CDT [...] - 02/03/2023 11:52 AM CDT Incoming call Gymnastic Teacher: Rosalva [place] [facility] referral following up on [facility] med information that is needed to be faxed at [phone] Erica David MA documented in this encounter Plan of Treatment Upcoming Encounters Date Type Department Care Team (Late st Contact Info) Description 11/21/2024 7:00 AM CDT Office Visit [address] [address] Maru Man PA-C [address] [place] [address] 12/20/2024 2:30 PM CDT Office Visit [facility] [address] [place] [phone] Esha Grimm PA-C [address] [place] [address] 04/16/2025 11:00 AM CDT Virtual Visit [facility] [address] 4th [place] [phone] Meredith Carrera PA-C [address] [place], [place] [phone] documented as of this encounter Visit Diagnoses [...] as of this encounter Care Teams Plate Finisher Relationship Specialty Start Date End Date Marija Edgar APRN CNP PCP - General Nurse Practitioner 04/30/20 04/14/23 Esha Grimm PA-C [address] [place] [phone] PCP - General Family Medicine 05/04/23 Lita Oseguera Personal Advocate & Liaison (PAL) 02/28/20 03/27/23 Marija Edgar APRN FOSTER WINDER Assigned PCP 06/08/20 04/29/23 Keisha Dotson MD [address] [place], [place] 586[address] Assigned Neuroscience Provider 06/04/20 04/01/23 Diana Desir, [facility] [address] [place], [place] [address] Pharmacist Pharmacist 04/17/21 Rain Galaviz PA-C [address] [place] [address] [address] [place] [address] Physician Assistant Analyst Dermatology 04/28/21 Tavia Wyatt MD [address] [place] [address] [address] [place] [address] Dermatology 07/14/21 Erica Farrell APRN FOSTER WINDER [address] [place] [address] Nurse Practitioner Cardiovascular Disease 09/09/21 Rich Barrett MD [address] [place] [address] Physician Ophthalmology 01/21/22 Neil Kent MD [address] [place] [address] Dermatology 02/24/22 Diana Desir, [facility] [address] [place] [address] Assigned [place] Pharmacist 04/07/22 Livan Sharif MD [address] [id number] [place] [address] Cardiovascular Disease 05/14/22 Catherine Cm MD [address] 804905 Cardiovascular Disease 07/21/22 Valery Veronica, PA-C 909 [place] [address] Physician Assistant Analyst Dermatology 07/21/22 Brea Quinn APRN FOSTER WINDER 500 [place] [address] Nurse Practitioner Dermatology 09/21/22 Brea Quinn APRN FOSTER WINDER 6401 [place] [address] Assigned Surgical Provider 10/09/22 05/01/24 [place] [address] [place] [address] Assigned Musculoskeletal Provider 10/09/22 05/01/24 Catherine Cm MD [address] [place] [address] Assigned Heart and Vascular Provider 11/13/22 05/27/23 Sydnie Martinez RN Personal Advocate & Liaison (PAL) Family Medicine 03/28/23 07/31/23 Alfonso Renteria MD [address]75 [facility] 200 [place] [address] Assigned Neuroscience Provider 04/02/23 09/29/24 Cheng Todd PA-C [address] [place] [address] [phone] Assigned PCP 04/30/23 07/15/23 Radha Lomeli APRN FOSTER WINDER [address] [place] [address] Assigned Heart and Vascular Provider 05/28/23 Jelena David OD [address] [facility] [place] [address] Ophthalmology 06/15/23 Pao Joseph RN Personal Advocate & Liaison (PAL) Nurse 08/01/23 11/07/23 Esha Grimm PA-C [address] [place] [phone] Assigned PCP 07/16/23 Valery Veronica PA-C 909 [place] [address] Physician Assistant Analyst Dermatology 09/19/23 Rey Tay MD [address] [place] [address] MD Gastroenterology 09/20/23 Rocky Zepeda DO [address] [place] [address] Physician Gastroenterology 09/20/23 Philip Dumont MD [address] [place] [address] Physician Ophthalmology 09/22/23 Mreedith Carrera PA-C [address] [place] [address] Assigned Gastroenterology Provider 11/01/23 Neil Kent MD [address] [address] Dermatology 11/02/23 [place] [address] [address] Neurological Surgery 12/26/23 Audrey Waite PA-C [address] [place] [address] Physician Assistant Analyst Dermatology 02/28/24 Valery Veronica PA-C [id number] [place] [address] Physician Assistant Analyst Dermatology 04/10/24 Herminia Hatch MD [address] [place] [address] [phone] Assigned Rheumatology Provider 07/02/24 Jelena David OD [address] [facility] [place] [address] Ophthalmology 08/30/24 [place] [address] [place] [address] Assigned Neuroscience Provider 09/30/24 Maru Man PA-C [address] [place] [address] Physician Assistant Analyst Dermatology 10/03/24 Maru Man PA-C [address] [place] [address] Physician Assistant Analyst Dermatology 10/22/24 Jelena David OD [address] [facility] [place] [address] Assigned Surgical Provider 10/31/24 documented as of this encounter
--- OUTSIDE RECORDS SUMMARY | 2024-11-21 04:16 | XMS_ITS | Encounter Summary ---
Author Organization [facility] Address [address] [place] [address] Care Team Providers Care Blending Operator Name Role Phone Diana Desir [facility] Unavailable [phone] Rain Galaviz PA-C Unavailable [phone] Tavia Wyatt MD Unavailable Erica Farrell APRN CONSTRUCTION IRONWORKER HELPER Unavailable Rich Barrett MD Unavailable [phone] Neil Kent MD Unavailable Diana Desir [facility] Unavailable Livan Sharif MD Unavailable Catherine Cm MD Unavailable + Valery Veronica PA-C Unavailable Brea Quinn WHOLESALE AND RETAIL MERCHANT CONSTRUCTION IRONWORKER HELPER Unavailable Brea Quinn WHOLESALE AND RETAIL MERCHANT CONSTRUCTION IRONWORKER HELPER Unavailable Jose Francisco Johnson MD Unavailable Alfonso Renteria MD Unavailable [phone] Esha Grimm PA-C Primary Care Provider Radha Lomeli APRN CONSTRUCTION IRONWORKER HELPER Unavailable Jelena David OD Unavailable [phone] Esha Grimm PA-C Unavailable [phone] JeremíasValery damon PA-C Unavailable Rey Tay MD Unavailable Duane Rockyanne [place] Unavailable Philip Dumont MD Unavailable Meredith Carrera PA-C Unavailable [phone] Neil Kent MD Unavailable Juan Pablo Emmanuel MD Unavailable Audrey Waite PA-C Unavailable [phone] JeremíasValery damon PA-C Unavailable Herminia Hatch MD Unavailable Jelena David OD Unavailable Juan Pablo Emmanuel MD Unavailable Maru Man PA-C Unavailable Maru Man PA-C Unavailable Jelena David OD Unavailable Encounter Details Date Type Department Care Team (Late st Contact Info) Description 02/28/2024 [facility] Medical Advice [facility] [address] [place] [address] Rain Burnette, RN Social History [...] week 03/10/2023 How often do you attend [facility] or rastafari services? 1 to 4 [...] Answer Date Recorded PHQ-2 Score 1 02/07/2024 [facility] [...] exercise at this level? 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 Gender Identity Female 03/02/2021 5:45 PM CDT Sexual Orientation Straight 02/28/2020 12 :51 AM CDT documented as of this encounter Plan of Treatment Upcoming Encounters Date Type Department Care Team (Late st Contact Info) Description 11/21/2024 7:00 AM CDT Office Visit [facility] [address] [phone] Maru Mna PA-C [address] [address] 12/20/2024 2:30 PM CDT Office Visit [place] [address] [place] [phone] Esha Grimm PA-C [address] [place] [address] 04/16/2025 11:00 AM CDT Virtual Visit [facility] [address] 4th [place] [phone] Meredith Carrera PA-C [address] [place] [address] documented as of this encounter Visit Diagnoses [...] Start Date End Date Esha Grimm PA-C [address] [place] [address] PCP - General Family Medicine 05/04/23 Diana Desir, [facility] [address] [place] [address] Pharmacist Pharmacist 04/17/21 Rain Galaviz PA-C [address] [place] [address] DR [facility] [facility] [place] [address] Physician Jet Aircraft Servicer Dermatology 04/28/21 Tavia Wyatt MD [address] [place] [address] [address] [place] [id number] Dermatology 07/14/21 Erica Farrell APRN CONSTRUCTION IRONWORKER HELPER [address] [place] [address] Nurse Practitioner Cardiovascular Disease 09/09/21 Rihc Barrett MD [address] [place] [address] Physician Ophthalmology 01/21/22 Neil Kent MD [address] [place] [address] [id number] MD Dermatology 02/24/22 Diana Desir, [facility] [address] [place], [place] 974076 Assigned [place] Pharmacist 04/07/22 Livan Sharif MD [address] [place] [address] Cardiovascular Disease 05/14/22 Catherine Cm MD [address] [place] [address] Cardiovascular Disease 07/21/22 Valery Veronica, PA-C [address] [place] [address] Physician Jet Aircraft Servicer Dermatology 07/21/22 Brea Quinn APRN CONSTRUCTION IRONWORKER HELPER 500 [place] [address] Nurse Practitioner Dermatology 09/21/22 Brea Quinn APRN CONSTRUCTION IRONWORKER HELPER 6401 [facility] [place] [address] Assigned Surgical Provider 10/09/22 05/01/24 [place] [address] [facility] 300 [place] [address] Assigned Musculoskeletal Provider 10/09/22 05/01/24 Alfonso Renteria MD 5775 [facility] 200 [place], [place] [address] Assigned Neuroscience Provider 04/02/23 09/29/24 Radha Lomeli APRN CONSTRUCTION IRONWORKER HELPER [address] [facility] [address] [place] [address] Assigned Heart and Vascular Provider 05/28/23 Jel[address] David OD [address] [place] [address] Ophthalmology 06/15/23 Esha Grimm PA-C [address] [place] [phone] Assigned PCP 07/16/23 Valery Veronica PA-C 909 [place] [address] Physician Jet Aircraft Servicer Dermatology 09/19/23 Rey Tay MD [address] [place] [address] MD Gastroenterology 09/20/23 Rocky Zepeda DO [address] [place] [address] Physician Gastroenterology 09/20/23 Philip Dumont MD [address] [place] [address] Physician Ophthalmology 09/22/23 Meredith Carrera PA-C [address] [place] [address] Assigned Gastroenterology Provider 11/01/23 Neil Kent MD [address] [address] Dermatology 11/02/23 [place] [address] [place] [address] [address] Neurological Surgery 12/26/23 Audrey Waite PA-C [address] [place] [address] Physician Jet Aircraft Servicer Dermatology 02/28/24 Valery Veronica PA-C [id number] [place] [address] Physician Jet Aircraft Servicer Dermatology 04/10/24 Herminia Hatch MD [address] [place] [address] [id number] Assigned Rheumatology Provider 07/02/24 Jel[address] David [place] [address] [facility] [place] [address] Ophthalmology 08/30/24 [place] [address] [place] [address] Assigned Neuroscience Provider 09/30/24 Maru Man PA-C [address] [place] [address] Physician Jet Aircraft Servicer Dermatology 10/03/24 Maru Man PA-C [address] [place] [address] Physician Jet Aircraft Servicer Dermatology 10/22/24 Jel[address] David OD [address] [facility] [place] [address] Assigned Surgical Provider 10/31/24 documented as of this encounter
--- OUTSIDE RECORDS SUMMARY | 2024-11-21 04:16 | XMS_ITS | Encounter Summary ---
Author Organization [facility] Address [address] [place] [address] Care Team Providers Care Ginner Name Role Phone Lita Oseguera Unavailable Unavailable Marija Edgar APRN PHOTOGEOLOGIST Primary Care Provider + Marija Edgar APRN PHOTOGEOLOGIST Unavailable [phone] Mynor Broussard MD Unavailable [phone] Keisha Dotson MD Unavailable Galo Burrell MD Unavailable Unavailable Diana Desir [facility] Unavailable Rain Galaviz PA-C Unavailable Summer Lara MD Unavailable [phone] Tavia Wyatt MD Unavailable Johnny Murillo MD Unavailable Erica Farrell APRN PHOTOGEOLOGIST Unavailable Teresita Bean [facility] Unavailable [phone] Tavia Wyatt MD Unavailable Diana Desir [facility] Unavailable Rich Barrett MD Unavailable [phone] Neil Kent MD Unavailable Roney Story DPM Unavailable Erica Farrell KEEL PRESS OPERATOR PHOTOGEOLOGIST Unavailable Diana Desir [facility] Unavailable [phone] Jelena David OD Unavailable Galo Burrell MD Unavailable Unavailable Livan Sharif MD Unavailable + Livan Sharif MD Unavailable + Catherine Cm MD Unavailable + Valery Veronica PA-C Unavailable [phone] Catherine Cm MD Unavailable + Johnny Murillo MD Unavailable [phone] Brea Quinn KEEL PRESS OPERATOR PHOTOGEOLOGIST Unavailable [phone] Brea Quinn KEEL PRESS OPERATOR PHOTOGEOLOGIST Unavailable [phone] Jose Francisco Johnson MD Unavailable Livan Sharif MD Unavailable + IsCatherine hobbs MD Unavailable + Sydnie Martinez RN Unavailable Unavailable Alfonso Renteria MD Unavailable Esha Grimm-C Primary Care Provider Cheng Todd PA-C Unavailable Radha Lomeli KEEL PRESS OPERATOR PHOTOGEOLOGIST Unavailable [phone] Jelena David OD Unavailable Pao Joseph RN Unavailable Unavailable Esha Grimm-C Unavailable [phone] JeremíasValery damon PA-C Unavailable [phone] Rey Tay MD Unavailable Rocky Zepeda DO Unavailable Philip Dumont MD Unavailable [phone] Meredith Carrera PA-C Unavailable [phone] Neil Kent MD Unavailable Jua nPablo Emmanuel MD Unavailable Audrey Waite PA-C Unavailable [phone] Valery Veronica PA-C Unavailable [phone] Herminia Hatch MD Unavailable Jelena David OD Unavailable Juan Pablo Emmanuel MD Unavailable [phone] Maru ManC Unavailable [phone] Maru ManC Unavailable [phone] Jelena David OD Unavailable Encounter Details Date Type Department Care Team (Late st Contact Info) Description 09/02/2021 [facility] [address] [address] Diana Desir, [facility] [address] [place], [place] [phone] Social History Tobacco Use Types Packs/Day Years [...] 04/02/2021 [facility] of Occupat ional [...] in a penitentiary (including now)? No 08/11/2020 [place] Depression Scale Answer Date Recorded [place] Depression Score 5 01/14/2021 Last EPDS Self Harm Result Not on file 01/14 Education Answer Date Recorded What is the highest level of school you have completed or the highest degree you have received? 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 No / Unsure 09/02/2021 12:26 PM BUSINESS ANALYST SALES OPERATIONS documented as of this encounter Plan of Treatment Upcoming Encounters Date Type Department Care Team (Late st Contact Info) Description 11/21/2024 7:00 AM CDT Office Visit [address] [phone] Maru Man PA-C [address] [place] [address] 12/20/2024 2:30 PM CDT Office Visit [facility] [address] [place] [address] Esha Grimm PA-C [address] [place] [address] 04/16/2025 11:00 AM CDT Virtual Visit [facility] [place] [id number] [facility] [address] [place] [phone] Meredith Carrera PA-C [address] [place] [address] documented as of this encounter Visit Diagnoses Not on filedocumented in this encounter Additional Health Concerns Infection Onset Date Last Indicated Resolved Time Rule Out COVID-19 12/18/2021 12/18/2021 12/19/2021 11:34 AM CDT Rule Out COVID-19 02/24/2022 02/24/2022 02/25/2022 1:08 PM CDT Rule Out COVID-19 04/26/2022 04/26/2022 04/26/2022 6:47 AM CDT Rule Out COVID-19 05/17/2022 05/17/2022 05/17/2022 10:20 PM BUSINESS ANALYST SALES [employer]PERATIONS Rule Out COVID-19 06/09/2022 06/09/2022 06/09/2022 9:35 AM BUSINESS ANALYST SALES OPERATIONS COVID-19 06/09/2022 06/09/2022 06/30/2022 11:4 1 PM BUSINESS ANALYST SALES OPERATIONS Rule Out COVID-19 11/10/2022 11/10/2022 11/11/2022 12:17 [...] documented as of this encounter Care Teams Ginner Relationship Specialty Start Date End Date Marija Edgar APRN PHOTOGEOLOGIST PCP - General Nurse Practitioner 04/30/20 04/14/23 Esha Grimm PA-C [address] [place] [phone] PCP - General Family Medicine 05/04/23 Lita Oseguera Personal Advocate & Liaison (PAL) 02/28/20 03/27/23 Marija Edgar APRN PHOTOGEOLOGIST Assigned PCP 06/08/20 04/29/23 Mynor Broussard MD [address] [address] Assigned Surgical Provider 06/01/20 11/28/21 Keisha Dotson MD [address] [place] [address] Assigned Neuroscience Provider 06/04/20 04/01/23 Galo Burrell MD Assigned Heart and Vascular Provider 10/05/20 04/02/22 Diana Desir, [facility] [address] [place] [address] Pharmacist Pharmacist 04/17/21 Rain Galaviz PA-C [address] [place] [address] [address] [facility] [place] [address] Physician Industrial Equipment Mechanic Dermatology 04/28/21 Summer Lara MD [address] [place] [address] 245234 Assigned OBGYN Provider 05/31/21 Tavia Wyatt MD [address] [place] [address] 036914 Dermatology 07/14/21 Johnny Murillo MD [address] [place], [place] 013624 Assigned Musculoskeletal Provider 08/30/21 03/17/22 Erica Farrell APRN PHOTOGEOLOGIST [address] [facility] [address] [place], [place] 187[address] Nurse Practitioner Cardiovascular Disease 09/09/21 Teresita Bean, [facility] [address] [place] [phone] Pharmacist Pharmacist 09/24/21 09/29/21 Tavia Wyatt MD [address] [place] [phone] Assigned Surgical Provider 11/29/21 05/07/22 Diana Desir, [facility] [address] [place] [address] Assigned MTM Pharmacist 01/02/22 Rich Barrett MD [address] [place] [address] Physician Ophthalmology 01/21/22 Neil Kent MD 500 [place], [place] 912155 Dermatology 02/24/22 Roney Story DPM [address] [facility] [address] [place] [address] Assigned Musculoskeletal Provider 03/20/22 08/13/22 Erica Farrell APRN PHOTOGEOLOGIST 1700 [place] [address] Assigned Heart and Vascular Provider 04/03/22 04/16/22 Diana Desir, [facility] [address] [place] [address] Assigned MTM Pharmacist 04/07/22 Jelena David OD [address] [facility] [address] Assigned Surgical Provider 05/08/22 10/08/22 Galo Burrell MD Assigned Heart and Vascular Provider 04/17/22 06/11/22 Livan Sharif MD [address] [facility] [address] [place] [address] Cardiovascular Disease 05/14/22 Livan Sharif MD [address] [place] [address] Assigned Heart and Vascular Provider 06/12/22 07/23/22 Catherine Cm MD [address] [facility] [address] [place] [address] Cardiovascular Disease 07/21/22 Valery Veronica, PAUcheC [address] [place] [address] Physician Industrial Equipment Mechanic Dermatology 07/21/22 Catherine Cm MD [address] [facility] [facility] [address] [place] [address] Assigned Heart and Vascular Provider 07/24/22 11/05/22 Johnny Murillo MD [address] [place] [address] 575034 Assigned Musculoskeletal Provider 08/14/22 10/08/22 Brea Quinn APRN PHOTOGEOLOGIST [address] [place] [address] [phone] Nurse Practitioner Dermatology 09/21/22 Brea Quinn APRN PHOTOGEOLOGIST [address] [place] [address] [place] [address] Assigned Surgical Provider 10/09/22 05/01/24 [place] [address] [place] [address] Assigned Musculoskeletal Provider 10/09/22 05/01/24 Livan Sharif MD [address] [place] [address] Assigned Heart and Vascular Provider 11/06/22 11/12/22 Catherine Cm MD [address] [place] [address] Assigned Heart and Vascular Provider 11/13/22 05/27/23 Sydnie Martinez RN Personal Advocate & Liaison (PAL) Family Medicine 03/28/23 07/31/23 Alfonso Renteria MD [address] [facility] [address] [place] [address] Assigned Neuroscience Provider 04/02/23 09/29/24 Cheng Todd PA-C [address] [place] [address] [phone] Assigned PCP 04/30/23 07/15/23 Radha Lomeli, KEEL PRESS OPERATOR PHOTOGEOLOGIST [address] [place] [address] Assigned Heart and Vascular Provider 05/28/23 Jelena David OD [address] [facility] [address] Ophthalmology 06/15/23 Pao Joseph, VJ Personal Advocate & Liaison (PAL) Nurse 08/01/23 11/07/23 Esha Grimm PA-C [address] [place] [phone] Assigned PCP 07/16/23 Valery Veronica PA-C [address] [place] [address] 594335 Physician Industrial Equipment Mechanic Dermatology 09/19/23 Rey Tay MD [address] [place] [address] [id number] MD Gastroenterology 09/20/23 Rocky Zepeda DO [address] [place] [address] 764125 Physician Gastroenterology 09/20/23 Philip Dumont MD [address] [place] [address] 918135 Physician Ophthalmology 09/22/23 Meredith Carrera PA-C [address] [place] [address] 616045 Assigned Gastroenterology Provider 11/01/23 Neil Kent MD [address] [address] Dermatology 11/02/23 [place] [address] [place] [address] Neurological Surgery 12/26/23 Audrey Waite PA-C [address] [place] [address] Physician Industrial Equipment Mechanic Dermatology 02/28/24 Valery Veronica PA-C [address] [place] [address] Physician Industrial Equipment Mechanic Dermatology 04/10/24 Herminia Hatch MD [address] [place] [address] Assigned Rheumatology Provider 07/02/24 Jelena David OD [address] [place] [address] [place] [address] Ophthalmology 08/30/24 [place] [address] [place] [address] Assigned Neuroscience Provider 09/30/24 Maru Man PA-C [address] [place] [address] Physician Industrial Equipment Mechanic Dermatology 10/03/24 Maru Man PA-C [address] [place] [address] Physician Industrial Equipment Mechanic Dermatology 10/22/24 Jelena David OD [address] [place] [address] [place] [address] Assigned Surgical Provider 10/31/24 documented as of this encounter
--- OUTSIDE RECORDS SUMMARY | 2024-11-21 04:16 | XMS_ITS | Encounter Summary ---
Author Organization [facility] Address [address] [place] [address] Care Team Providers Care Sensory Scientist Name Role Phone Diana Desir [facility] Unavailable [phone] Rain Galaviz PA-C Unavailable Tavia Wyatt MD Unavailable Erica Farrell APRN MONKEY TRAINER Unavailable Rich Barrett MD Unavailable [phone] Neil Kent MD Unavailable Diana Desir [facility] Unavailable Livan Sharif MD Unavailable Catherine Cm MD Unavailable + Valery Veronica PA-C Unavailable Brea Quinn PLANNER CHIEF MONKEY TRAINER Unavailable Brea Quinn PLANNER CHIEF MONKEY TRAINER Unavailable [phone] Jose Francisco Johnson MD Unavailable Alfonso Renteria MD Unavailable [phone] Esha Grimm PA-C Primary Care Provider Radha Lomeli APRN MONKEY TRAINER Unavailable Jelena David OD Unavailable [phone] Esha Grimm PA-C Unavailable [phone] Valery Veronica PA-C Unavailable Rey Tay MD Unavailable Marimar Zepedashximena [facility]EV[facility] Unavailable Philip Dumont MD Unavailable Meredith [...] tachycardia) Procedures Cardiac Event Monitor Adult Pediatric Lomeli, December, PLANNER CHIEF MONKEY TRAINER [address] [place] [address] Phone: tel: fax: [facility] [address] [facility] [address] [place] [address] Phone: tel: fax: Referral ID Status Reason Start Date Expiration Date Visits Re quested Visits Authorized [id number] Closed 03/07/2024 03/07/2025 1 1 Encounter Details Date Type Department Care Team (Late st Contact Info) Description 03/07/2024 Telephone [place] [id number] [facility] [address] [place] [address] Carley Myles RN Social History [...] [facility]? 1 to 4 [...] Answer Date Recorded PHQ-2 Score 1 10/24/2024 [facility] of Occupat ional Health - [...] exercise at this level? 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 Pt requested a medical scheduler to call her instead of her reaching out. Will route to scheduling team. Orders in EPIC. Carley ZABALA [facility] [...] Radha Lomeli CNP for review. Carley ZABALA [facility] Heart [facility] documented in this encounter Plan of Treatment Upcoming Encounters Date Type Department Care Team (Late st Contact Info) Description 11/21/2024 7:00 AM CDT Office Visit [facility] [address] [phone] Maru Man PA-C [address] [address] 12/20/2024 2:30 PM CDT Office Visit [facility] [address] [place] [phone] Esha Grimm PA-C [address] [place] [address] 04/16/2025 11:00 AM CDT Virtual Visit [facility] [address] [phone] Meredith Carrera PA-C [address] [place] [address] documented as of this encounter Results * [...] Out COVID-19 04/09/2024 04/09/202404/10/2024 6:48 PM CDT Rule Out COVID-19 10/04/2024 10/04/2024 10/05/2024 9:42 AM CDT Assessment Noted Time PHQ-9 Depression Total Score: 3 02/07/20 24 9:33 AM CDT documented as of this encounter Care Teams Sensory Scientist Relationship Specialty Start Date End Date Esha Grimm PA-C [address] [place] [phone] PCP - General Family Medicine 05/04/23 Diana Desir, [facility] [address] [facility] [place] [address] Pharmacist Pharmacist 04/17/21 Rain Galaviz PA-C [address] [place] [address] DR [address] [facility] [place] [address] Physician Fluxer Dermatology 04/28/21 Tavia Wyatt MD [address] [place] [address] DR [address] [facility] [place] [address] Dermatology 07/14/21 Erica Farrell APRN MONKEY TRAINER [address] [place] [address] Nurse Practitioner Cardiovascular Disease 09/09/21 Rich Barrett MD [address] [place] [address] Physician Ophthalmology 01/21/22 Neil Kent MD 500 [place] [address] Dermatology 02/24/22 Diana Desir, [facility] 3033 [place], [place] 97[address]86 Assigned MTM Pharmacist 04/07/22 Livan Sharif MD 6405 [facility] S [facility]00 [place], [place] [address] Cardiovascular Disease 05/14/22 Catherine Cm MD 6405 [facility] [address] [place], [place] 9548[address] Cardiovascular Disease 07/21/22 Valery Veronica, PA-C [address] [place] [address] 720945 Physician Fluxer Dermatology 07/21/22 Brea Quinn APRN MONKEY TRAINER [address] [place], [place] [phone] Nurse Practitioner Dermatology 09/21/22 Brea Quinn APRN MONKEY TRAINER [address] [place] [address] 112872 Assigned Surgical Provider 10/09/22 05/01/24 [place] [address] 835977 Assigned Musculoskeletal Provider 10/09/22 05/01/24 Alfonso Renteria MD [address] [facility] 200 [place], [place] [phone] Assigned Neuroscience Provider 04/02/23 09/29/24 Radha Lomeli APRN MONKEY TRAINER 6[address] [facility] [address] [place] [address] Assigned Heart and Vascular Provider 05/28/23 [place] David [place] [address] [facility] [address] [place] [phone] MD Ophthalmology 06/15/23 Esha Grimm PA-C [address] [place] [phone] Assigned PCP 07/16/23 Valery Veronica PA-C [address] [place] [address] 230695 Physician Fluxer Dermatology 09/19/23 Rey Tay MD [address] [place] [address] 098055 Gastroenterology 09/20/23 Rocky Zepeda DO 9 [place], [place] 494625 Physician Gastroenterology 09/20/23 Philip Dumont MD [address] [place] [address] 143385 Physician Ophthalmology 09/22/23 Meredith Carrera PA-C [address] [place] [address] 376075 Assigned Gastroenterology Provider 11/01/23 Neil Kent MD [address] [place] [address] Dermatology 11/02/23 [place] [address] [place] [address] Neurological Surgery 12/26/23 Audrey Waite PA-C [address] [place] [address] Physician Fluxer Dermatology 02/28/24 Valery Veronica PA-C [address] [place] [address] Physician Fluxer Dermatology 04/10/24 Herminia Hatch MD [address] [place] [address] [phone] Assigned Rheumatology Provider 07/02/24 Jelena David OD [address] [place] [address] [place] [address] Ophthalmology 08/30/24 [place] [address] [place] [address] Assigned Neuroscience Provider 09/30/24 Maru Man PA-C [address] [place] [address] Physician Fluxer Dermatology 10/03/24 Maru Man PA-C [address] [place] [address] Physician Fluxer Dermatology 10/22/24 documented as of this encounter
--- OUTSIDE RECORDS SUMMARY | 2024-11-21 04:16 | XMS_ITS | Encounter Summary ---
Author Organization [facility] Address [address] [place] [address] Care Team Providers Care Rat Breeder Name Role Phone Lita Oseguera Unavailable Unavailable Marija Edgar APRN BOTTOM POUNDER CEMENT SHOES Primary Care Provider + Marija Edgar APRN BOTTOM POUNDER CEMENT SHOES Unavailable [phone] Mynor Broussard MD Unavailable Keisha Dotson MD Unavailable Galo Burrell MD Unavailable Unavailable Diana Desir [facility] Unavailable Rain Galaviz PA-C Unavailable Summer Lara MD Unavailable [phone] Tavia Wyatt MD Unavailable Johnny Murillo MD Unavailable Erica Farrell APRN BOTTOM POUNDER CEMENT SHOES Unavailable Teresita Bean [facility] Unavailable Tavia Wyatt MD Unavailable Diana Desir [facility] Unavailable Rich Barrett MD Unavailable [phone] Neil Kent MD Unavailable Roney Story DPM Unavailable Erica Farrell STATION TENDER BOTTOM POUNDER CEMENT SHOES Unavailable Diana Desir [facility] Unavailable [phone] Jelena David OD Unavailable Galo Burrell MD Unavailable Unavailable Livan Sharif MD Unavailable + Livan Sharif MD Unavailable + Catherine Cm MD Unavailable + Valery Veronica PA-C Unavailable [phone] Catherine Cm MD Unavailable + Johnny Murillo MD Unavailable [phone] Brea Quinn STATION TENDER BOTTOM POUNDER CEMENT SHOES Unavailable [phone] Brea Quinn STATION TENDER BOTTOM POUNDER CEMENT SHOES Unavailable [phone] Jose Francisco Johnson MD Unavailable Livan Sharif MD Unavailable + IsCatherine hobbs MD Unavailable + Sydnie Martinez RN Unavailable Unavailable Alfonso Renteria MD Unavailable Esha Grimm-C Primary Care Provider Cheng Todd PA-C Unavailable Radha Lomeli STATION TENDER BOTTOM POUNDER CEMENT SHOES Unavailable [phone] Jelena David OD Unavailable Pao Joseph RN Unavailable Unavailable Esha Grimm-C Unavailable [phone] JeremíasValery damon PA-C Unavailable [phone] Rey Tay MD Unavailable Rocky Zepeda DO Unavailable Philip Dumont MD Unavailable [phone] Meredith Carrera-C Unavailable [phone] Neil Kent MD Unavailable Juan Pablo Emmanuel MD Unavailable [phone] Audrey Waite PA-C Unavailable [phone] Valery Veronica-C Unavailable [phone] Herminia Hatch MD Unavailable Jelena David OD Unavailable Juan Pablo Emmanuel MD Unavailable [phone] Maru Man PA-C Unavailable [phone] Maru Man PA-C Unavailable [phone] Encounter Details Date Type Department Care Team [...] Answer Date Recorded PHQ-2 Score 1 10/24/2024 [facility]ational [...] exercise at this level? 20 min 05/07/2024 Corona Depression Scale Answer Date Recorded Corona Depression Score 5 01/14/2021 Last EPDS Self [...] in an overnight prison, or couch-surfing.) Yes 05/07/2024 Are you worried [...] of Assessment Author Never 03/28/2024 5:48 PM OLIVERIOT Bob Diop documented as of this encounter Plan of Treatment Upcoming Encounters Date Type Department Care Team (Late st Contact Info) Description 11/21/2024 7:00 AM CDT Office Visit [address] [address] Maru Man PA-C [address] [place] [address] 12/20/2024 2:30 PM CDT Office Visit [facility] [address] [place] [address] Esha Grimm PA-C [address] [place] [address] 04/16/2025 11:00 AM CDT Virtual Visit [facility] [address] [place] [phone] Meredith Carrera PA-C 909 [place] [address] documented as of this encounter Visit Diagnoses Not on filedocumented in this encounter Additional Health Concerns Infection Onset Date Last Indicated Resolved Time Rule Out COVID-19 12/18/2021 12/18/2021 12/19/2021 11:34 AM CDT Rule Out COVID-19 02/24/2022 02/24/2022 02/25/2022 1:08 PM CDT Rule Out COVID-19 04/26/2022 04/26/2022 04/26/2022 6:47 AM CDT Rule Out COVID-19 05/17/2022 05/17/2022 05/17/2022 10:20 PM FINANCIAL INTERN Rule Out COVID-19 06/09/2022 06/09/2022 06/09/2022 9:35 AM FINANCIAL INTERN COVID-19 06/09/2022 06/09/2022 06/30/2022 11:4 1 PM FINANCIAL INTERN Rule Out COVID-19 11/10/2022 11/10/2022 11/11/2022 [...] documented as of this encounter Care Teams Rat Breeder Relationship Specialty Start Date End Date Marija Edgar APRN BOTTOM POUNDER C[employer] SHOES PCP - General Nurse Practitioner 04/30/20 04/14/23 Esha Grimm PA-C [address] [place] [address] PCP - General Family Medicine 05/04/23 Lita Oseguera Personal Advocate & Liaison (PAL) 02/28/20 03/27/23 Marija Edgar APRN BOTTOM POUNDER C[employer] SHOES Assigned PCP 06/08/20 04/29/23 Mynor Broussard MD [address] [address] Assigned Surgical Provider 06/01/20 11/28/21 Keisha Dotson MD [address] [place] [address] Assigned Neuroscience Provider 06/04/20 04/01/23 Galo Burrell MD Assigned Heart and Vascular Provider 10/05/20 04/02/22 [facility] [address] [place] [address] Pharmacist Pharmacist 04/17/21 Rain Galaviz PA-C [address] [place] [address] [address] [facility] [facility] [place] [address] Physician Front Desk Lead Dermatology 04/28/21 Summer Lara MD [address] [place] [address] [place] [address] Assigned OBGYN Provider 05/31/21 2 Tavia Wyatt MD [address] [place] [address] Dermatology 07/14/21 Johnny Murillo MD [facility] [facility] [address] [place] [address] Assigned Musculoskeletal Provider 08/30/21 03/17/22 Erica Farrell APRN [facility] 6405 [facility] [address] [place] [address] Nurse Practitioner Cardiovascular Disease 09/09/21 Teresita Bean [facility] [address] [place] [address] Pharmacist Pharmacist 09/24/21 09/29/21 Tavia Wyatt MD [address] [place] [address] Assigned Surgical Provider 11/29/21 05/07/22 [facility] 3033 [place] [address] Assigned MTM Pharmacist 01/02/22 Rich Barrett MD 3033 [place] [address] Physician Ophthalmology 01/21/22 Neil Kent MD 500 [place] [address] Dermatology 02/24/22 Roney Story DPM [address] [facility] [address] [place] [address] Assigned Musculoskeletal Provider 03/20/22 08/13/22 Erica Farrell APRN [employer] P[employer]OES 1700 [place] [address] Assigned Heart and Vascular Provider 04/03/22 04/16/22 Diana Desir, [facility] [address] [place] [address] Assigned MTM Pharmacist 04/07/22 Jelena David OD [address] [facility] [place] [address] Assigned Surgical Provider 05/08/22 10/08/22 Galo Burrell MD Assigned Heart and Vascular Provider 04/17/22 06/11/22 Livan Sharif MD [address] [facility] [address] [place] [id number] Cardiovascular Disease 05/14/22 Livan Sharif MD [address] [place] 0585200 [place] 034525 Assigned Heart and Vascular Provider 06/12/22 07/23/22 Catherine Cm MD [address] [place] [address] [place] 582025 Cardiovascular Disease 07/21/22 Valery Veronica, PA-C [address] [place] [address] 336275 Physician Front Desk Lead Dermatology 07/21/22 Catherine Cm MD [address] [place] [address] [place] 552295 Assigned Heart and Vascular Provider 07/24/22 11/05/22 Johnny Murillo MD [address] [place] [address] 948434 Assigned Musculoskeletal Provider 08/14/22 10/08/22 Brea Quinn APRN [employer] [address] [place] [address] 585605 Nurse Practitioner Dermatology 09/21/22 Brea Quinn APRN [employer]OTTOM P[employer]OES [address] [place] [address] [place] [id number] Assigned Surgical Provider 10/09/22 05/01/24 [place] [address] RAZO [address] [place] [address] 729968 Assigned Musculoskeletal Provider 10/09/22 05/01/24 Livan Sharif MD [address] [place] [address] [place] [address] Assigned Heart and Vascular Provider 11/06/22 11/12/22 Catherine Cm MD [address] [place] [address] [place] [address] Assigned Heart and Vascular Provider 11/13/22 05/27/23 Sydnie Martinez RN Personal Advocate & Liaison (PAL) Family Medicine 03/28/23 07/31/23 Alfonso Renteria MD 5775 [facility] 200 [place] [address] Assigned Neuroscience Provider 04/02/23 09/29/24 Cheng Todd PA-C [address] [place] [address] [id number] Assigned PCP 04/30/23 07/15/23 Radha Lomeli, ARLENE BOTTOM POUNDER CEMENT SHOES [address] [place] [address] Assigned Heart and Vascular Provider 05/28/23 Jelena David OD [facility] [facility] [place] [address] Ophthalmology 06/15/23 aPo Joseph RN Personal Advocate & Liaison (PAL) Nurse 08/01/23 11/07/23 Esha Grimm PAUcheC [address] [place] [address] Assigned PCP 07/16/23 Valery Veronica PA-C [address] [place] [address] Physician Front Desk Lead Dermatology 09/19/23 Rey Tay MD [address] [place] [address] MD Gastroenterology 09/20/23 Rocky Zepeda DO [address] [place] [address] Physician Gastroenterology 09/20/23 Philip Dumont MD [address] [place] [address] Physician Ophthalmology 09/22/23 Meredith Carrera PA-C [address] [place] [address] Assigned Gastroenterology Provider 11/01/23 Neil Kent MD [address] 528550 Dermatology 11/02/23 [place] [address] [place] [address] Neurological Surgery 12/26/23 Audrey Waite PA-C [address] [place] [address] Physician Front Desk Lead Dermatology 02/28/24 Valery Veronica PA-C [address] [facility] [place] [address] Physician Front Desk Lead Dermatology 04/10/24 Herminia Hatch MD 1875 [place] [address] Assigned Rheumatology Provider 07/02/24 Jelena Davdi OD [address] [facility] [place] [address] Ophthalmology 08/30/24 [place] [address] [place] [address] Assigned Neuroscience Provider 09/30/24 Maru Man PA-C [address] [place] [address] Physician Front Desk Lead Dermatology 10/03/24 Maru Man PA-C [address] [place] [address] Physician Front Desk Lead Dermatology 10/22/24 documented as of this encounter
--- OUTSIDE RECORDS SUMMARY | 2024-11-21 04:16 | XMS_ITS | Encounter Summary ---
Author Organization [facility] Address [address] [place] [address] Care Team Providers Care Aerial Erector Name Role Phone Lita Oseguera Unavailable Unavailable Marija Edgar APRN SHOWCASE TRIMMER Primary Care Provider + Marija Edgar APRN SHOWCASE TRIMMER Unavailable [phone] Mynor Broussard MD Unavailable [phone] Keisha Dotson MD Unavailable Galo Burrell MD Unavailable Unavailable Diana Desir [facility] Unavailable Rain Galaviz PA-C Unavailable Summer Lara MD Unavailable [phone] Tavia Wyatt MD Unavailable Johnny Murillo MD Unavailable [phone] Erica Farrell APRN SHOWCASE TRIMMER Unavailable Tavia Wyatt MD Unavailable Diana Desir [facility] Unavailable Rich Barrett MD Unavailable [phone] Neil Kent MD Unavailable Roney StoryM Unavailable Erica Farrell APRN SHOWCASE TRIMMER Unavailable Diana Desir [facility] Unavailable Jelena David OD Unavailable [phone] Galo Burrell MD Unavailable Unavailable Livan Sharif MD Unavailable Livan Sharif MD Unavailable IsCatherine hobbs MD Unavailable + Valery Veronica PA-C Unavailable [phone] Catherine Cm MD Unavailable + Johnny Murillo MD Unavailable [phone] Brea Quinn PLANNING MANAGER SHOWCASE TRIMMER Unavailable [phone] Brea Quinn PLANNING MANAGER SHOWCASE TRIMMER Unavailable [phone] Jose Francisco Johnson MD Unavailable Livan Sharif MD Unavailable + IsCatherine hobbs MD Unavailable + Sydnie Martinez RN Unavailable Unavailable Alfonso Renteria MD Unavailable Esha Grimm PA-C Primary Care Provider Cheng Todd PA-C Unavailable Radha Lomeli PLANNING MANAGER SHOWCASE TRIMMER Unavailable [phone] Jelena David OD Unavailable Pao Joseph RN Unavailable Unavailable Esha Grimm-C Unavailable [phone] Valery Veronica PA-C Unavailable [phone] Rey Tay MD Unavailable Rocky Zepeda DO Unavailable Philip Dumont MD Unavailable Byron Carreranahed Troncoso PA-C Unavailable [phone] Neil Kent MD Unavailable Juan Pablo Emmanuel MD Unavailable Ravindra Audrey R PA-C Unavailable [phone] Valery Veronica PA-C Unavailable Herminia Hatch MD Unavailable Jelena David OD Unavailable Juan Pablo Emmanuel MD Unavailable [phone] Maru Man-C Unavailable [phone] Maru Man-C Unavailable [phone] Jelena David OD Unavailable Encounter Details Date Type Department Care Team (Late st Contact Info) Description 10/28/2021 MyC Medical Advice [facility] [address] [place] [address] Erica Farrell APRN [facility] 1700 [place] [address] Social History Tobacco Use Types Packs/Day Years [...] How often do you attend sikh or pentecostalism serv ices? Never 09/22/2021 Do [...] a nursing home (including now)? No 09/22/2021 Crowley Depression Scale Answer Date Recorded Crowley Depression Score 5 01/14/2021 Last EPDS Self Harm Result Not on file 01/14 Education Answer Date Recorded What is the highest level of school you have completed or the highest degree you have received? 12th grade 08/07/2020 Comments No Sex and Gender Information Value Date Recorded Sex Assigned at Female 03/02/2021 5:45 PM CDT Legal Sex Female 4:13 AM EMERGENCY DEPARTMENT RN Gender Identity Female 03/02/2021 5:45 PM [...] Description 11/21/2024 7:00 AM CDT Office Visit [address] [address] Maru Man PA-C [address] [place] [address] 12/20/2024 2:30 PM CDT Office Visit [facility] [address] [place] [address] Esha Grimm PA-C [address] [place] [address] 04/16/2025 11:00 AM CDT Virtual Visit [facility] [address] [place] [phone] Meredith Carrera PA-C 909 [place] [address] documented as of this encounter Visit Diagnoses Not on filedocumented in this encounter Additional Health Concerns Infection Onset Date Last Indicated Resolved Time Rule Out COVID-19 12/18/2021 12/18/2021 12/19/2021 11:34 AM CDT Rule Out COVID-19 02/24/2022 02/24/2022 02/25/2022 1:08 PM CDT Rule Out COVID-19 04/26/2022 04/26/2022 04/26/2022 6:47 AM CDT Rule Out COVID-19 05/17/2022 05/17/2022 05/17/2022 10:20 PM EMERGENCY DEPARTMENT RN Rule Out COVID-19 06/09/2022 06/09/2022 06/09/2022 9:35 AM EMERGENCY DEPARTMENT RN COVID-19 06/09/2022 06/09/2022 06/30/2022 11:4 1 PM EMERGENCY DEPARTMENT RN Rule Out COVID-19 11/10/2022 11/10/2022 11/11/2022 [...] documented as of this encounter Care Teams Aerial Erector Relationship Specialty Start Date End Date Marija Edgar APRN SHOWCASE TRIMMER PCP - General Nurse Practitioner 04/30/20 04/14/23 Esha Grimm PA-C [address] [place] [address] PCP - General Family Medicine 05/04/23 Lita Oseguera Personal Advocate & Liaison (PAL) 02/28/20 03/27/23 Marija Edgar APRN SHOWCASE TRIMMER Assigned PCP 06/08/20 04/29/23 Mynor Broussard MD [address] [address] Assigned Surgical Provider 06/01/20 11/28/21 Keisha Dotson MD 909 [place] [address] Assigned Neuroscience Provider 06/04/20 04/01/23 Galo Burrell MD Assigned Heart and Vascular Provider 10/05/20 04/02/22 [facility] 3033 [place] [address] Pharmacist Pharmacist 04/17/21 Rain Galaviz PA-C [address] [place] [address] [place] [address] Physician Senior Research Analyst Dermatology 04/28/21 Summer Lara MD [address] [place] [address] Assigned OBGYN Provider 05/31/21 Tavia Wyatt MD [address] [place] [place] [address] Dermatology 07/14/21 Johnny Murillo MD [address] [facility] [address] [place] [address] Assigned Musculoskeletal Provider 08/30/21 03/17/22 Erica Farrell APRN SHOWCASE TRIMMER 6405 [facility] [address] [place] [address] Nurse Practitioner Cardiovascular Disease 09/09/21 Tavia Wyatt MD [address] [place] [address] Assigned Surgical Provider 11/29/21 05/07/22 Diana Desir, [facility] 30[address] [place] [address] Assigned MTM Pharmacist 01/02/22 Rich Barrett MD [address]33 [place] [address] Physician Ophthalmology 01/21/22 Neil Kent MD 500 [place] [address] Dermatology 02/24/22 [place] [address] [facility] [address] [place] [address] Assigned Musculoskeletal Provider 03/20/22 08/13/22 Erica Farrell APRN SHOWCASE TRIMMER [address] [place] [address] Assigned Heart and Vascular Provider 04/03/22 04/16/22 [facility] 30[address] [place] [address] Assigned MTM Pharmacist 04/07/22 Jelena David OD [address] [facility] [place] [address] Assigned Surgical Provider 05/08/22 10/08/22 Galo Burrell MD Assigned Heart and Vascular Provider 04/17/22 06/11/22 Livan Sharif MD [address] [place] [id number] Cardiovascular Disease 05/14/22 Livan Sharif MD [address] [address] [place] 035375 Assigned Heart and Vascular Provider 06/12/22 07/23/22 Catherine Cm MD 6[address] [facility] [address] [address] [place] [address] Cardiovascular Disease 07/21/22 Valery Veronica PAUcheC [address] [place] [address] 143725 Physician Senior Research Analyst Dermatology 07/21/22 Catherine Cm MD 6405 [facility] S [facility] [address] [place] [address] Assigned Heart and Vascular Provider 07/24/22 11/05/22 Johnny Murillo MD [address] [place] [address] Assigned Musculoskeletal Provider 08/14/22 10/08/22 Brea Quinn APRN SHOWCASE TRIMMER [address] [place] [address] 135085 Nurse Practitioner Dermatology 09/21/22 Brea Quinn APRN SHOWCASE TRIMMER [address] [place] [address] [place] [address] Assigned Surgical Provider 10/09/22 05/01/24 [place] [address] [facility] [place] [address] Assigned Musculoskeletal Provider 10/09/22 05/01/24 Livan Sharif MD [address] [facility] [address] [address] [place] [address] Assigned Heart and Vascular Provider 11/06/22 11/12/22 Catherine Cm MD [address] [place] [address] Assigned Heart and Vascular Provider 11/13/22 05/27/23 Sydnie Martinez, RN Personal Advocate & Liaison (PAL) Family Medicine 03/28/23 07/31/23 Alfonso Renteria MD 5775 [facility] 200 [place] [address] Assigned Neuroscience Provider 04/02/23 09/29/24 Cheng Todd PA-C [address] [place] [address] [id number] Assigned PCP 04/30/23 07/15/23 Radha Lomeli APRN SHOWCASE TRIMMER [address] [place] [address] Assigned Heart and Vascular Provider 05/28/23 Jelena David OD [address] [facility] [place] [address] Ophthalmology 06/15/23 Pao Joseph, VJ Personal Advocate & Liaison (PAL) Nurse 08/01/23 11/07/23 Esha Grimm PA-C [address] [place] [address] Assigned PCP 07/16/23 Valery Veronica PA-C [address] [place] [address] Physician Senior Research Analyst Dermatology 09/19/23 Rey Tay MD [address] [place] [address] MD Gastroenterology 09/20/23 Rocky Zepeda DO [address] [place] [address] Physician Gastroenterology 09/20/23 Philip Dumont MD [address] [place] [address] Physician Ophthalmology 09/22/23 Meredith Carrera PA-C [address] [place] [address] Assigned Gastroenterology Provider 11/01/23 Neil Kent MD [address] [address] Dermatology 11/02/23 [place] [address] [address] [facility] [place], [place] 273617 Neurological Surgery 12/26/23 Audrey Waite PA-C [address] [place] [address] Physician Senior Research Analyst Dermatology 02/28/24 Valery Veronica PA-C 496691 [place] [address] Physician Senior Research Analyst Dermatology 04/10/24 Herminia Hatch MD [facility]5 [place] [address] Assigned Rheumatology Provider 07/02/24 Jelena David OD [address] [place] [address] [place] [address] Ophthalmology 08/30/24 [place] [address] [place] [address] Assigned Neuroscience Provider 09/30/24 Maru Man PA-C [address] [place] [address] Physician Senior Research Analyst Dermatology 10/03/24 Maru Man PA-C [address] [place] [address] Physician Senior Research Analyst Dermatology 10/22/24 Jelena David OD [address] [place] [address] [place] [address] Assigned Surgical Provider 10/31/24 documented as of this encounter
--- OUTSIDE RECORDS SUMMARY | 2024-11-21 04:16 | XMS_ITS | Encounter Summary ---
Author Organization [place] Address [address] [place] [address] Care Team Providers Care Coagulating Operator Name Role Phone Marija Edgar APRN COUNSELLORS Primary Care Provider + Marija Edgar APRN COUNSELLORS Unavailable Keisha Dotson MD Unavailable [phone] Diana Desir [facility] Unavailable Rain Galaviz PA-C Unavailable Tavia Wyatt MD Unavailable Erica Farrell APRN COUNSELLORS Unavailable Rich Barrett MD Unavailable [phone] Neil Kent MD Unavailable Diana Desir [facility] Unavailable Livan Sharif MD Unavailable Catherine Cm MD Unavailable + Valery Veronica PA-C Unavailable Brae Quinn APRN COUNSELLORS Unavailable Brea Quinn TOURS CAPTAIN COUNSELLORS Unavailable Jose Francisco Johnson MD Unavailable Catherine Cm MD Unavailable + Sydnie Martinez RN Unavailable Unavailable Alfonso Renteria MD Unavailable [phone] Esha Grimm PA-C Primary Care Provider Cheng Todd PA-C Unavailable Radha Lomeli APRN, CNP Unavailable Jelena David OD Unavailable Pao Joseph RN Unavailable Unavailable Esha Grimm PA-C Unavailable [phone] Valery Veronica PA-C Unavailable Rey Tay MD Unavailable Rocky Zepeda DO Unavailable Philip Dumont MD Unavailable Meredith Carrera PA-C Unavailable Neil Kent MD Unavailable Juan Pablo Emmanuel MD Unavailable Audrey Waite PA-C Unavailable JeremíasValery damon PA-C Unavailable Herminia Hatch MD Unavailable Jelena David OD Unavailable [phone] Juan Pablo Emmanuel MD Unavailable Maru Man PA-C Unavailable Maru Man PA-C Unavailable Jelena David OD Unavailable [phone] Encounter Details Date Type Department Care Team (Late st Contact Info) Description 03/29/[address] [place] [address] Diana Desir, [facility] [address] [place] [address] Social History Tobacco Use Types Packs/Day Years [...] often do you attend [facility] or gnosticism services? 1 to 4 times [...] Answer Date Recorded PHQ-2 Score 0 03/10/2023 [facility] - Occupational Stress [...] in a group home (including now)? No 03/10/2023 [place] Depression Scale Answer Date Recorded [place] Depression Score 5 01/14/2021 Last EPDS Self Harm Result Not on file 01/14 Education Answer Date Recorded What is the highest level of school you have completed or the highest degree you have received? 12th grade 08/07/2020 Comments No Sex and Gender Information Value Date Recorded Sex Assigned at Female 03/02/2021 5:45 PM CDT Legal Sex Female 4:13 AM ADVERTISING ASSOCIATE Gender Identity Female 03/02/2021 5:45 PM [...] Upcoming Encounters Date Type Department Care Team ([facility] st Contact Info) Description 11/21/2024 7:00 AM CDT Office Visit [address] [phone] Maru Man PA-C [address] [place] [address] 12/20/2024 2:30 PM CDT Office Visit [facility] [address] [place] [address] [phone] Esha Grimm PA-C [address] [place] [phone] 04/16/2025 11:00 AM CDT Virtual Visit [facility] [address] 4th [place] [address] Meredith Carrera PA-C [address] [place] [address] 559515 documented as of this encounter Visit Diagnoses [...] documented as of this encounter Care Teams Coagulating Operator Relationship Specialty Start Date End Date Marija Edgar APRN COUNSELLORS PCP - General Nurse Practitioner 04/30/20 04/14/23 Esha Grimm PA-C [address] [place] [phone] PCP - General Family Medicine 05/04/23 Marija Edgar APRN COUNSELLORS Assigned PCP 06/08/20 04/29/23 Keisha Dotson MD [address]09 [place], [place] 710345 Assigned Neuroscience Provider 06/04/20 04/01/23 Diana Desir, [facility] [address] [place] [address] Pharmacist Pharmacist 04/17/21 Rain Galaviz PA-C [address] [facility] [address] [place] [facility] [place] [address] Physician Aquarium Tank Attendant Dermatology 04/28/21 Tavia Wyatt MD [address] [place] [address] [address] [place], [place] [phone] Dermatology 07/14/21 Erica Farrell APRN COUNSELLORS [address] [place] [address] Nurse Practitioner Cardiovascular Disease 09/09/21 Rich Barrett MD [address] [place], [place] 630025 Physician Ophthalmology 01/21/22 Neil Kent MD 500 [place], [place] 881475 Dermatology 02/24/22 [facility] [address] [place], [place] 248426 Assigned [place] Pharmacist 04/07/22 Livan Sharif MD [address] [place] [address] Cardiovascular Disease 05/14/22 Catherine Cm MD [address] [place] [address] Cardiovascular Disease 07/21/22 Valery Veronica, PA-C [address] [place] [address] Physician Aquarium Tank Attendant Dermatology 07/21/22 Brea Quinn APRN COUNSELLORS 500 [place] [address] Nurse Practitioner Dermatology 09/21/22 Brea Quinn APRN COUNSELLORS 6401 [facility] [place] [address] Assigned Surgical Provider 10/09/22 05/01/24 [place] [address] [place] [address] Assigned Musculoskeletal Provider 10/09/22 05/01/24 Catherine Cm MD [address] [facility] [address] [place] [address] Assigned Heart and Vascular Provider 11/13/22 05/27/23 Sydnie Martinez RN Personal Advocate & Liaison (PAL) Family Medicine 03/28/23 07/31/23 Alfonso Renteria MD 5775 [facility] 200 [place] [address] Assigned Neuroscience Provider 04/02/23 09/29/24 Cheng Todd PA-C [address] [place] [address] [phone] Assigned PCP 04/30/23 07/15/23 Radha Lomeli APRN COUNSELLORS 6[address] [facility] [address] [place] [address] Assigned Heart and Vascular Provider 05/28/23 Jelena David OD 3305 [facility] [place] [address] MD Ophthalmology 06/15/23 Poa Joseph, RN Personal Advocate & Liaison (PAL) Nurse 08/01/23 11/07/23 Esha Grimm PA-C [address] [place] [address]605[address] Assigned PCP 07/16/23 Valery Veronica PA-C [address] [place] [address] 530175 Physician Aquarium Tank Attendant Dermatology 09/19/23 Rey Tay MD [address] [place] [address] MD Gastroenterology 09/20/23 Rocky Zepeda DO [address] [place] [address] 852515 Physician Gastroenterology 09/20/23 Philip Dumont MD [address] [place] [address] 748965 Physician Ophthalmology 09/22/23 Meredith Carrera PA-C [address] [place] [address] Assigned Gastroenterology Provider 11/01/23 Neil Kent MD [address] [phone] Dermatology 11/02/23 [place] [address] [place], [place] 530817 Neurological Surgery 12/26/23 Audrey Waite PA-C 500 [place] [address] Physician Aquarium Tank Attendant Dermatology 02/28/24 Valery Veronica PA-C [address] [place] [address] Physician Aquarium Tank Attendant Dermatology 04/10/24 Herminia Hatch MD [address] [place] [address] [phone] Assigned Rheumatology Provider 07/02/24 Jelena David OD [address] [place] [address] [place] [address] Ophthalmology 08/30/24 [place] [address] [place] [address] Assigned Neuroscience Provider 09/30/24 Maru Man PA-C [address] [place] [address] Physician Aquarium Tank Attendant Dermatology 10/03/24 Maru Man PA-C [address] [place] [address] Physician Aquarium Tank Attendant Dermatology 10/22/24 Jelena David OD [address] [place] [address] [place] [address] Assigned Surgical Provider 10/31/24 documented as of this encounter
--- OUTSIDE RECORDS SUMMARY | 2024-11-21 04:16 | XMS_ITS | Encounter Summary ---
Author Organization [place] Address [address] [place] [address] Care Team Providers Care Photoengraving Photographer Name Role Phone Diana Desir [facility] Unavailable Rain Galaviz PA-C Unavailable [phone] Tavia Wyatt MD Unavailable Erica Farrell APRN FOUNDER & CEO Unavailable Rich Barrett MD Unavailable [phone] Neil Kent MD Unavailable Diana Desir [facility] Unavailable Livan Sharif MD Unavailable Catherine Cm MD Unavailable + Valery Veronica PA-C Unavailable Brea Quinn FISHER TROLL LINE FOUNDER & CEO Unavailable Brea Quinn [employer] FOUNDER & CEO Unavailable [phone] Jose Francisco Johnson MD Unavailable Alfonso Renteria MD Unavailable [phone] Esha Grimm PA-C Primary Care Provider Radha Lomeli APRN FOUNDER & CEO Unavailable Jelena David OD Unavailable [phone] Esha Grimm PA-C Unavailable [phone] Valery Veronica PA-C Unavailable Rey Tay [...] Team (Late st Contact Info) Description 02/27/2024 [facility] Medical Advice [facility]ine [facility] Neurosurgery [address] [place] [phone] Ebony Cid APRN FOUNDER & CEO 500 [place] [address] Social History Tobacco Use Types [...] Answer Date Recorded PHQ-2 Score 1 02/07/2024 [facility] of Occupat [...] PM CDT Legal Sex Female 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 Gender Identity Female 03/02/2021 5:45 PM CDT Sexual Orientation Straight 02/28/2020 12 :51 AM CDT documented as of this encounter Plan of Treatment Upcoming Encounters Date Type Department Care Team (Late st Contact Info) Description 11/21/2024 7:00 AM CDT Office Visit [facility] [address] [phone] Maru Man PA-C [address] [place] [address] 12/20/2024 2:30 PM CDT Office Visit [facility] [address] [place] [address] Esha Grimm PA-C [address] [place] [address] 04/16/2025 11:00 AM CDT Virtual Visit [facility] [address] 4th [place] [phone] Meredith Carrera PA-C [address] [place] [address] [phone] documented as of this encounter Visit Diagnoses [...] documented as of this encounter Care Teams Photoengraving Photographer Relationship Specialty Start Date End Date Esha Grimm PA-C [id number] [place] [phone] PCP - General Family Medicine 05/04/23 Diana Desir, [facility] [address] [place] [address] Pharmacist Pharmacist 04/17/21 Rain Galaviz PA-C [address] [place] [address] [place] [address] Physician Cath Lab Radiological Technologist Dermatology 04/28/21 Tavia Wyatt MD [address] [place] [address] [address] [place] [address] Dermatology 07/14/21 Erica Farrell APRN FOUNDER & CEO [address] [place] [address] Nurse Practitioner Cardiovascular Disease 09/09/21 Rich Barrett MD [address] [place] 859225 Physician Ophthalmology 01/21/22 Neil Kent MD [address] [place] [address] 803295 Dermatology 02/24/22 [facility] [address] [place] [address] 429296 Assigned [facility] Pharmacist 04/07/22 Livan Sharif MD [address] [place] [address] Cardiovascular Disease 05/14/22 Catherine Cm MD [address] [place] 978845 Cardiovascular Disease 07/21/22 Valery Veronica, PA-C [address] [place] [address] 137555 Physician Cath Lab Radiological Technologist Dermatology 07/21/22 Brea Quinn APRN FOUNDER & CEO 500 [place], [place] 769215 Nurse Practitioner Dermatology 09/21/22 Brea Quinn APRN FOUNDER & CEO [facility]1 [place], [place] 684952 Assigned Surgical Provider 10/09/22 05/01/24 [place] [address] [address] Assigned Musculoskeletal Provider 10/09/22 05/01/24 Alfonso Renteria MD [address] 446686 Assigned Neuroscience Provider 04/02/23 09/29/24 Radha Lomeli APRN FOUNDER & CEO [address] [place] [address] 515715 Assigned Heart and Vascular Provider 05/28/23 Jelena David OD [address] [facility] [place] [address] Ophthalmology 06/15/23 Esha Grimm PA-C [address] [place] [phone] Assigned PCP 07/16/23 Valery Veronica PA-C [address] [place], [place] 374005 Physician Cath Lab Radiological Technologist Dermatology 09/19/23 Rey Tay MD [address] [place] [address] 668705 MD Gastroenterology 09/20/23 Rocky Zepeda DO [address] [place] [address] 816095 Physician Gastroenterology 09/20/23 Philip Dumont MD 6 [place] [address] Physician Ophthalmology 09/22/23 Meredith Carrera PA-C [address] [place] [address] 075445 Assigned Gastroenterology Provider 11/01/23 Neil Kent MD [address] [place] [address] Dermatology 11/02/23 [place] [address] [facility] [place] [address] Neurological Surgery 12/26/23 Audrey Waite PA-C [address] [place] [address] Physician Cath Lab Radiological Technologist Dermatology 02/28/24 Valery Veronica PA-C [address] [place] [address] Physician Cath Lab Radiological Technologist Dermatology 04/10/24 Herminia Hatch MD [facility]5 [place] [address] Assigned Rheumatology Provider 07/02/24 Jelena David OD [facility] [facility] [place] [address] Ophthalmology 08/30/24 [place] [address] [place] [address] Assigned Neuroscience Provider 09/30/24 Maru Man PA-C [address] [place] [address] Physician Cath Lab Radiological Technologist Dermatology 10/03/24 Maru Man PA-C [address] [place] [address] Physician Cath Lab Radiological Technologist Dermatology 10/22/24 Jelena David OD [address] [place] [address] [place] [address] Assigned Surgical Provider 10/31/24 documented as of this encounter
--- OUTSIDE RECORDS SUMMARY | 2024-11-21 04:16 | XMS_ITS | Encounter Summary ---
Author Organization [facility] Address [address] [place] [address] Care Team Providers Care Senior Program Manager Name Role Phone Lita Oseguera Unavailable Unavailable Marija Edgar APRN ETL PROGRAMMER Primary Care Provider + Marija Edgar APRN ETL PROGRAMMER Unavailable [phone] Keisha Dotson MD Unavailable Diana Desir [facility] Unavailable Rain Galaviz PA-C Unavailable Tavia Wyatt MD Unavailable Erica Farrell APRN ETL PROGRAMMER Unavailable Rich Barrett MD Unavailable [phone] Neil Kent MD Unavailable Diana Desir [facility] Unavailable Livan Sharif MD Unavailable Catherine Cm MD Unavailable + Valery Veronica PA-C Unavailable [phone] Brea Quinn WEBSPHERE COMMERCE CONSULTANT ETL PROGRAMMER Unavailable Brea Quinn WEBSPHERE COMMERCE CONSULTANT ETL PROGRAMMER Unavailable Jose Francisco Johnson MD Unavailable Catherine Cm MD Unavailable + Sydnie Martinez RN Unavailable Unavailable Alfonso Renteria MD Unavailable [phone] Esha Grimm PA-C Primary Care Provider Cheng Todd PA-C Unavailable Armani Radha Stovall ARLENE ETL PROGRAMMER Unavailable Jelena David OD Unavailable Pao Joseph RN Unavailable Unavailable Esha Grimm PA-C Unavailable [phone] Valery Veronica PA-C Unavailable Rey Tay MD Unavailable Rocky Zepeda DO Unavailable Philip Dumont MD Unavailable [phone] Meredith Carrera PA-C Unavailable [phone] Neil Kent MD Unavailable Juan Pablo Emmanuel MD Unavailable Audrey Waite PA-C Unavailable Valery Veronica PA-C Unavailable Herminia Hatch MD Unavailable Jelena David OD Unavailable Juan Pablo Emmanuel MD Unavailable Maru Man PA-C Unavailable [phone] Maru Man PA-C Unavailable [phone] Jelena David OD Unavailable Encounter Details Date Type Department Care Team (Late st Contact Info) Description 01/28/2023 [facility] Medical Advice [facility] Heart [facility] 6405 [facility] [address] [place] [address] Margaret Rendon, RN Social History Tobacco Use [...] How often do you attend nondenominational or samaritan serv ices? Never 09/22/2021 Do [...] 1 10/11/2022 [facility] - Occupational Stress Questionnaire Answer Date [...] in a halfway (including now)? No 09/22/2021 [place] Depression Scale Answer Date Recorded [place] Depression Score 5 01/14/2021 Last EPDS Self Harm Result Not on file 01/14 Education Answer Date Recorded What is the highest level of school you have completed or the highest degree you have received? 12th grade 08/07/2020 Comments No Sex and Gender Information Value Date Recorded Sex Assigned at Female 03/02/2021 5:45 PM CDT Legal Sex Female 4:13 AM MERCHANDISE FLOW ASSOCIATE Gender Identity Female 03/02/2021 5:45 PM [...] Description 11/21/2024 7:00 AM CDT Office Visit [facility] [address] [phone] Maru Man PA-C [address] [place] [address] 785380 12/20/2024 2:30 PM CDT Office Visit [facility] [address] [place] [phone] Esha Grimm PA-C [address] [place] [phone] 04/16/2025 11:00 AM CDT Virtual Visit [facility] [address] 4th [place] [phone] Meredith Carrera PA-C [address] [place] [address] 927535 documented as of this encounter Visit Diagnoses [...] as of this encounter Care Teams Senior Program Manager Relationship Specialty Start Date End Date Marija Edgar APRN ETL PROGRAMMER PCP - General Nurse Practitioner 04/30/20 04/14/23 Esha Grimm PA-C [address] [place] [address] PCP - General Family Medicine 05/04/23 Lita Oseguera Personal Advocate & Liaison (PAL) 02/28/20 03/27/23 Marija Edgar APRN ETL PROGRAMMER Assigned PCP 06/08/20 04/29/23 Keisha Dotson MD 909 [place], [place] 087905 Assigned Neuroscience Provider 06/04/20 04/01/23 Diana Desir [facility] 30[address] [place], [place] [phone] Pharmacist Pharmacist 04/17/21 Rain Galaviz PA-C [address] [place] [address] [place] [address] Physician Control Engineer Dermatology 04/28/21 Tavia Wyatt MD [address] [place] [address] [place] [address] Dermatology 07/14/21 Erica Farrell APRN ETL PROGRAMMER [address] [place] [address] Nurse Practitioner Cardiovascular Disease 09/09/21 Rich Barrett MD [address] [place] 6[address]15 Physician Ophthalmology 01/21/22 Neil Kent MD [address] [place] [address] 379265 Dermatology 02/24/22 Diana Desir, [facility] [address] [place], [place] 975436 Assigned [place] Pharmacist 04/07/22 Livan Sharif MD [address] [place] 9[address]25 Cardiovascular Disease 05/14/22 Catherine Cm MD [address] [facility]00 [place] 122245 Cardiovascular Disease 07/21/22 Valery Veronica, PA-C 909 [place], [place] 188565 Physician Control Engineer Dermatology 07/21/22 Brea Quinn APRN ETL PROGRAMMER 500 [place], [place] 550565 Nurse Practitioner Dermatology 09/21/22 Brea Quinn APRN ETL PROGRAMMER 6401 [facility] [place] [address] Assigned Surgical Provider 10/09/22 05/01/24 [place] [address] [facility] 300 [place], [place] 417967 Assigned Musculoskeletal Provider 10/09/22 05/01/24 Catherine Cm MD [address] [facility] [address] [place] [address] Assigned Heart and Vascular Provider 11/13/22 05/27/23 Sydnie Martinez RN Personal Advocate & Liaison (PAL) Family Medicine 03/28/23 07/31/23 Alfonso Renteria MD [address] [facility] 200 [place] [address] Assigned Neuroscience Provider 04/02/23 09/29/24 Cheng Todd PA-C [address] [place] [address] [phone] Assigned PCP 04/30/23 07/15/23 Radha Lomeli APRN ETL PROGRAMMER [address] [place] [address] Assigned Heart and Vascular Provider 05/28/23 Jelena David OD [address] [place] [address] MD Ophthalmology 06/15/23 Pao Joseph, RN Personal Advocate & Liaison (PAL) Nurse 08/01/23 11/07/23 Esha Grimm PA-C [address] [place] [phone] Assigned PCP 07/16/23 Valery Veronica PA-C [address] [place] [address] 914695 Physician Control Engineer Dermatology 09/19/23 Rey Tay MD [address] [place] [address] 475945 MD Gastroenterology 09/20/23 Rocky Zepeda DO [address] [place] [address] 497755 Physician Gastroenterology 09/20/23 Philip Dumont MD [address] [place] [address] 461115 Physician Ophthalmology 09/22/23 Meredith Carrera PA-C [address] [place] [address] 982665 Assigned Gastroenterology Provider 11/01/23 Neil Kent MD [address] [address] Dermatology 11/02/23 [place] [address] [place] [address] Neurological Surgery 12/26/23 Audrey Waite PA-C 500 [place] [address] Physician Control Engineer Dermatology 02/28/24 Valery Veronica PA-C 80[address]59 [address] [place] [address] Physician Control Engineer Dermatology 04/10/24 Herminia Hatch MD [address] [place] [address] [phone] Assigned Rheumatology Provider 07/02/24 Jelena David, SONJA [address] [place] [address] [place] [address] Ophthalmology 08/30/24 [place] [address] [place] [address] Assigned Neuroscience Provider 09/30/24 Maru Man PA-C [address] [place] [address] Physician Control Engineer Dermatology 10/03/24 Maru Man PA-C [address] [place] [address] Physician Control Engineer Dermatology 10/22/24 Jelena David OD [address] [place] [address] [place] [address] Assigned Surgical Provider 10/31/24 documented as of this encounter
--- OUTSIDE RECORDS SUMMARY | 2024-11-21 04:17 | XMS_ITS | Encounter Summary ---
Author Organization [facility] Address [address] [place] [address] Care Team Providers Care Desizing Machine Back Tender Name Role Phone Lita Oseguera Unavailable Unavailable Marija Edgar APRN FACE CLEANER Primary Care Provider + Chanelle Mccann APRN CNM Unavailab le Kyara De La Fuente RN Unavailable [phone] Marija Edgar APRN FACE CLEANER Unavailable Mynor Broussard MD Unavailable [phone] Keisha Dotson MD Unavailable Mary Mejia Unavailable Unavailable Stacey Briones MARKETING CAMPAIGN ANALYST Unavailable Lesley Guillermo CHW Unavailable Mary Mejia Unavailable Unavailable Lita Oseguera Unavailable Unavailable Galo Burrell MD Unavailable Unavailable Cristina Wood Unavailable Lesley Guillermo CHW Unavailable Meredith Bedoya Unavailable Unavailable Cristina Wood Unavailable Diana Desir [facility] Unavailable Ruhland, Rain Lena PA-C Unavailable Summer Lara MD Unavailable [phone] Summer Lara MD Unavailable [phone] Summer Lara MD Unavailable [phone] Tavia Wyatt MD Unavailable [phone] Johnny Murillo MD Unavailable [phone] Erica Farrell APRN FACE CLEANER Unavailable VikasTeresita H Unavailable Tavia Wyatt MD Unavailable [phone] Diana Desir [facility] Unavailable [phone] Rich Barrett MD Unavailable [phone] Neil Kent MD Unavailable Roney Story [facility] Unavailable Erica Farrell APRN FACE CLEANER Unavailable Diana Desir [facility] Unavailable [phone] Jelena David OD Unavailable Galo Burrell MD Unavailable Unavailable Livan Sharif MD Unavailable Livan Sharif MD Unavailable Catherine Cm MD Unavailable + Valery Veronica PA-C Unavailable [phone] Cahterine Cm MD Unavailable + Johnny Murillo MD Unavailable +[phone] Brea Quinn APRN FACE CLEANER Unavailable [phone] Brea Quinn LEAD ENTERPRISE ARCHITECT FACE CLEANER Unavailable [phone] Jose Francisco Johnson MD Unavailable Livan Sharif MD Unavailable Catherine Cm MD Unavailable + Sydnie Martinez RN Unavailable Unavailable Alfonso Renteria MD Unavailable [phone] Esha Grimm PA-C Primary Care Provider Cheng Todd PA-C Unavailable Radha Lomeli APRN, CNP Unavailable Jelena David OD Unavailable Pao Joseph RN Unavailable Unavailable Esha Grimm PA-C Unavailable [phone] Valery Veronica PA-C Unavailable Rey Tay MD Unavailable Rocky Zepeda DO Unavailable Philip Dumont MD Unavailable Meredith Carrera PA-C Unavailable Neil Kent MD Unavailable Juan Pablo Emmanuel MD Unavailable Audrey Waite PA-C Unavailable Valery Veronica PA-C Unavailable Herminia Hatch MD Unavailable Jelena David OD Unavailable [phone] Juan Pablo Emmanuel MD Unavailable Maru Man PA-C Unavailable Maru Man PA-C Unavailable Jelena David OD Unavailable Encounter Details Date Type Department Care Team (Late st Contact Info) Description 07/17/2020 MyC Medical Advice [facility] Ep[facility]psy [facility] [address], [address] [place] [address] Keisha Dotson MD [address] [place] [address] Social History Tobacco Use Types Packs/Day Years [...] CDT Legal Sex Female 4:13 AM CHEMICAL BLENDER Gender Identity Female 03/02/2021 5:45 PM CDT Sexual Orientation Straight 02/28/2020 12 :51 AM CDT COVID-19 Exposure Response Date Recorded In the last month, have you been in contact with someone who was confirmed or suspected to have Coronavirus / COVID-19? No / Unsure 06/24/2020 3:01 PM CHEMICAL BLENDER documented as of this encounter Miscellaneous Notes * Telephone Encounter - Kyara De La Fuente RN - 07/23/2020 1:41 PM CST [facility] report intolerability of levetiracetam. She stayed [...] her shewouldn't need medication her whole life. ICAL BLENDER documented in this encounter Plan of Treatment Upcoming Encounters Date Type Department Care Team (Late st Contact Info) Description 11/21/2024 7:00 AM CDT Office Visit [facility] [address] [address] Maru Man PA-C [address] [address] 12/20/2024 2:30 PM CDT Office Visit [facility] [address] [place] [phone] Esha Grimm PA-C [id number] [place] [address] 04/16/2025 11:00 AM CDT Virtual Visit [facility] [address] [place] [phone] Meredith Carrera PA-C [address] [place] [address] documented as of this encounter Visit Diagnoses Not on filedocumented in this encounter Additional Health Concerns Infection Onset Date Last Indicated Resolved Time Rule Out COVID-19 07/30/2020 07/30/2020 07/30/2020 7:11 PM CHEMICAL BLENDER Rule Out COVID-19 08/30/2020 08/30/2020 08/30/2020 5:05 PM CHEMICAL BLENDER Rule Out COVID-19 09/24/2020 09/24/2020 09/24/2020 9:24 AM CDT Rule Out COVID-19 11/05/2020 11/05/2020 11/06/2020 1:09 PM CDT Rule Out COVID-19 05/11/2021 05/11/2021 05/13/2021 10:18 AM CDT Rule Out COVID-19 07/13/2021 07/13/2021 07/14/2021 3:04 PM CHEMICAL BLENDER Rule Out COVID-19 07/18/2021 07/18/2021 07/20/2021 1:56 PM CHEMICAL BLENDER COVID-19 07/18/2021 07/18/2021 08/08/2021 11:3 9 PM CHEMICAL BLENDER Rule Out COVID-19 12/18/2021 12/18/2021 12/19/2021 11:34 AM CDT Rule Out COVID-19 02/24/2022 02/24/2022 02/25/2022 1:08 PM CDT Rule Out COVID-19 04/26/2022 04/26/2022 04/26/2022 6:47 AM CDT Rule Out COVID-19 05/17/2022 05/17/2022 05/17/2022 10:20 PM CHEMICAL BLENDER Rule Out COVID-19 06/09/2022 06/09/2022 06/09/2022 9:35 AM CHEMICAL BLENDER COVID-19 06/09/2022 06/09/2022 06/30/2022 11:4 1 PM CHEMICAL BLENDER Rule Out COVID-19 11/10/2022 11/10/2022 11/11/2022 12:17 PM CDT Rule Out COVID-19 03/07/2023 03/07/2023 03/07/2023 1:20 PM CDT Rule Out COVID-19 12/26/2023 12/26/2023 12/26/2023 9:50 AM CDT Rule Out COVID-19 04/09/2024 04/09/2024 04/10/2024 6:48 PM CDT Rule Out COVID-19 10/04/2024 10/04/2024 10/05/2024 9:42 AM CDT Rule Out COVID-19 11/20/2024 11/20/2024 Assessment Noted Time PHQ-9 Depression Total Score: 9 06/25/20 20 7:04 AM CHEMICAL BLENDER documented as of this encounter Care Teams Desizing Machine Back Tender Relationship Specialty Start Date End Date Marija Edgar APRN FACE CLEANER PCP - General Nurse Practitioner 04/30/20 04/14/23 Esha Grimm PA-C [address] [place] [phone] PCP - General Family Medicine 05/04/23 Lita Oseguera Personal Advocate & Liaison (PAL) 02/28/20 03/27/23 [place] [address] [address] [facility] 200 [place], [place] [address] Assigned OBGYN Provider 05/02/2005/09 Kyara De La Fuente, RN Specialty Machinery Repair Maintenance Supervisor Neurology 06/04/20 03/05/21 Marija Edgar APRN FACE CLEANER Assigned PCP 06/08/20 04/29/23 Mynor Broussard MD 6[address] [facility] 500 [place] [address] Assigned Surgical Provider 06/01/20 11/28/21 Keisha Dotson MD [address] [place], [place] [address] Assigned Neuroscience Provider 06/04/20 04/01/23 Mary Mejia Financial Resource Worker 08/07/20 08/21/20 Stacey Briones, MARKETING CAMPAIGN ANALYST Lead Machinery Repair Maintenance Supervisor Primary Care - CC 08/11/2012/30 Lesley Guillermo, W Community Health Worker 08/11/2010/01 Mary Mejia Financial Resource Worker 09/02/20 10/06/20 Lita Oseguera Personal Advocate & Liaison (PAL) Family Medicine 09/10/20 09/21/20 Galo Burrell MD Assigned Heart and Vascular Provider 10/05/20 04/02/22 Cristina Wood Financial Resource Worker 10/07/20 10/14/20 Lesley Guillermo, [facility] Community Health Worker 10/23/2012/30 Meredith Bedoya Financial Resource Worker 10/23/20 11/23/20 Cristina Wood Financial Resource Worker 02/09/21 02/09/21 Diana Desir, [facility] [address] [place], [place] [phone] Pharmacist Pharmacist 04/17/21 Rain Galaviz PA-C [address] [place] [address] DR ARRIOLA [place], [place] [phone] Physician Training Instructor Dermatology 04/28/21 Summer Lara MD [address] [place] [address] 037844 Assigned OBGYN Provider 05/10/2105/23 Summer Lara MD [address] [place] [address] 795424 Assigned OBGYN Provider 05/31/21 Summer Lara MD [address] [place] [address] Assigned OBGYN Provider 05/24/2105/30 Tavia yWatt MD [address] [place] [address] Dermatology 07/14/21 Johnny Murillo MD [address] [place] [address] Assigned Musculoskeletal Provider 08/30/21 03/17/22 Erica Farrell APRN FACE CLEANER [address] [facility] [address] [place] [address] Nurse Practitioner Cardiovascular Disease 09/09/21 Teresita Bean, [facility] [address] [place] [phone] Pharmacist Pharmacist 09/24/21 09/29/21 Tavia Wyatt MD [address] [place] [address] Assigned Surgical Provider 11/29/21 05/07/22 Diana Desir, [facility] [address] [place] [address] Assigned MTM Pharmacist 01/02/22 Rich Barrett MD [address] [place] [address] Physician Ophthalmology 01/21/22 Neil Kent MD 500 [place] [address] Dermatology 02/24/22 Roney Story DPM [address] [facility] [address] [place], [place] 637[address] Assigned Musculoskeletal Provider 03/20/22 08/13/22 Erica Farrell APRN FACE CLEANER [address] [place] [address] Assigned Heart and Vascular Provider 04/03/22 04/16/22 Diana Desir, [facility] [address] [place], [place] 013666 Assigned MTM Pharmacist 04/07/22 Jelena David OD [address] [place] [address] Assigned Surgical Provider 05/08/22 10/08/22 Galo Burrell MD Assigned Heart and Vascular Provider 04/17/22 06/11/22 Livan Sharif MD [address] [address] [place] [address] Cardiovascular Disease 05/14/22 Livan Sharif MD [address] [address] [place] [address] Assigned Heart and Vascular Provider 06/12/22 07/23/22 Catherine Cm MD [address] [place], [place] 522625 Cardiovascular Disease 07/21/22 Valery Veronica, PA-C [address] [place] [address] Physician Training Instructor Dermatology 07/21/22 Catherine Cm MD [address] [facility] [address] [place] [address] [place] [address] Assigned Heart and Vascular Provider 07/24/22 11/05/22 Johnny Murillo MD [address] [place] [address] Assigned Musculoskeletal Provider 08/14/22 10/08/22 Brea Quinn APRN FACE CLEANER [address] [place] [address] 903215 Nurse Practitioner Dermatology 09/21/22 Brea Quinn APRN FACE CLEANER 64[address] [place] [address] Assigned Surgical Provider 10/09/22 05/01/24 [place] [address] RA[address] [place] [address] Assigned Musculoskeletal Provider 10/09/22 05/01/24 Livan Sharif MD [address] [facility]00 [place] [address] Assigned Heart and Vascular Provider 11/06/22 11/12/22 Catherine Cm MD [address] [facility]00 [place] 138435 Assigned Heart and Vascular Provider 11/13/22 05/27/23 Sydnie Martinez RN Personal Advocate & Liaison (PAL) Family Medicine 03/28/23 07/31/23 Alfonso Renteria MD [address] [facility] [address] 200 [place] [address] Assigned Neuroscience Provider 04/02/23 09/29/24 Cheng Todd PA-C [address] [place] [address] Assigned PCP 04/30/23 07/15/23 Radha Lomeli APRN FACE CLEANER 6[address] [facility] [address] [place] [address] Assigned Heart and Vascular Provider 05/28/23 Jelena David OD [address] [place] [address] Ophthalmology 06/15/23 Pao Joseph, VJ Personal Advocate & Liaison (PAL) Nurse 08/01/23 11/07/23 Esha Grimm PA-C [address] [place] [phone] Assigned PCP 07/16/23 Valery Veronica PA-C [address] [place] [address] 199575 Physician Training Instructor Dermatology 09/19/23 Rey Tay MD 909 [place] [address] Gastroenterology 09/20/23 Rocky Zepeda DO [address] [place] [address] Physician Gastroenterology 09/20/23 Philip Dumont MD [address] [place] [address] Physician Ophthalmology 09/22/23 Meredith Carrera PA-C [address] [place] [address] Assigned Gastroenterology Provider 11/01/23 Neil Kent MD [address] [place] [address] MD Dermatology 11/02/23 [place] [address] [place] [address] [address] Neurological Surgery 12/26/23 Audrey Waite PA-C [address] [place] [address] Physician Training Instructor Dermatology 02/28/24 Valery Veronica PA-C [id number] [place] [address] Physician Training Instructor Dermatology 04/10/24 Herminia Hatch MD [address] [place] [address] [phone] Assigned Rheumatology Provider 07/02/24 [place] [address] [place] [address] [place] [id number] Ophthalmology 08/30/24 [place] [address] [address] [place] [address] Assigned Neuroscience Provider 09/30/24 Maru Man PA-C [address] [place] [address] Physician Training Instructor Dermatology 10/03/24 Maru Man PA-C [address] [place] [address] Physician Training Instructor Dermatology 10/22/24 Jelena David OD [address] [facility] [place] [address] Assigned Surgical Provider 10/31/24 documented as of this encounter
--- OUTSIDE RECORDS SUMMARY | 2024-11-21 04:17 | XMS_ITS | Encounter Summary ---
Author Organization [facility] Address [address] [place] [address] Care Team Providers Care Tubing Supervisor Name Role Phone Diana Desir [facility] Unavailable [phone] Rain Galaviz PA-C Unavailable Tavia Wyatt MD Unavailable Erica Farrell APRN FRONT DESK WORKER Unavailable Rich Barrett MD Unavailable [phone] Neil Kent MD Unavailable Diana Desir [facility] Unavailable Livan Sharif MD Unavailable Catherine Cm MD Unavailable + Valery Veronica PA-C Unavailable Brea Quinn MEMBERSHIP DIRECTOR FRONT DESK WORKER Unavailable [phone] Brea Quinn MEMBERSHIP DIRECTOR FRONT DESK WORKER Unavailable [phone] Jose Francisco Johnson MD Unavailable Alfonso Renteria MD Unavailable [phone] Esha Grimm PA-C Primary Care Provider Radha Lomeli APRN FRONT DESK WORKER Unavailable Jelena David OD Unavailable [phone] Esha Grimm PA-C Unavailable [phone] JeremíasValery damon PA-C Unavailable Rey Tay MD Unavailable Duane Rockyanne ST[place] Unavailable Philip Dumont MD Unavailable [phone] Meredith Carrera PA-C Unavailable [phone] Neil Kent MD Unavailable Juan Pablo Emmanuel MD Unavailable Audrey Waite PA-C Unavailable [phone] JeremíasValery damon PA-C Unavailable Herminia Hatch MD Unavailable Jelena David OD Unavailable [phone] Juan Pablo Emmanuel MD Unavailable Maru Man PA-C Unavailable Maru Man PA-C Unavailable Jelena David OD Unavailable Encounter Details Date Type Department Care Team (Late st Contact Info) Description 11/16/2023 [facility] Medical Advice [address] [address] Asiya Reddy, RN Social History [...] Answer Date Recorded PHQ-2 Score 0 10/25/2023 [facility]ational Stress Questionnaire [...] exercise at this level? 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 Gender Identity Female 03/02/2021 5:45 PM CDT Sexual Orientation Straight 02/28/2020 12 :51 AM CDT documented as of this encounter Plan of Treatment Upcoming Encounters Date Type Department Care Team (Late st Contact Info) Description 11/21/2024 7:00 AM CDT Office Visit [facility] [address] [address] Maru Man PA-C [address] [address] 12/20/2024 2:30 PM CDT Office Visit [address] [place] [phone] Esha Grimm PA-C [address] [place] [address] 04/16/2025 11:00 AM CDT Virtual Visit [facility] Gastro[facility]ology Clinic [address] 4th [place] [phone] Meredith Carrera PA-C [address] [place] [address] documented as of this encounter Visit Diagnoses [...] Total Score: 4 06/20/20 23 8:40 AM NON CATEGORICAL PRESCHOOL TEACHER documented as of this encounter Care Teams Tubing Supervisor Relationship Specialty Start Date End Date Esha Grimm PA-C [address] [place] [address] PCP - General Family Medicine 05/04/23 Diana Desir, [facility] [address] [place], [place] [phone] Pharmacist Pharmacist 04/17/21 Rain Galaviz PA-C [address] [place] [address] [facility] [place] [id number] Physician Invertebrate Paleontologist Dermatology 04/28/21 Tavia Wyatt MD [address] [place] [address] DR RAZO [facility] [place] [id number] Dermatology 07/14/21 Erica Farrell APRN FRONT DESK WORKER [address] [place] 45[address] Nurse Practitioner Cardiovascular Disease 09/09/21 Rich Barrett MD [address] [place] 139095 Physician Ophthalmology 01/21/22 Neil Kent MD [address] [place] [address] 469575 Dermatology 02/24/22 [facility] [address] [place] [address] 956556 Assigned [place] Pharmacist 04/07/22 Livan Sharif MD [address] [place] [facility] [place] 583705 Cardiovascular Disease 05/14/22 Catherine Cm MD [address] [facility]00 [place] [address]225 Cardiovascular Disease 07/21/22 Valery Veronica, PA-C [address] [place] [address] 633765 Physician Invertebrate Paleontologist Dermatology 07/21/22 Brea Quinn APRN FRONT DESK WORKER 500 [place] [address] Nurse Practitioner Dermatology 09/21/22 Brea Quinn APRN FRONT DESK WORKER 6401 [place] [address] Assigned Surgical Provider 10/09/22 05/01/24 [place] [address] [place] [address] [address] Assigned Musculoskeletal Provider 10/09/22 05/01/24 Alfonso Renteria MD [address] 933506 Assigned Neuroscience Provider 04/02/23 09/29/24 Radha Lomeli APRN FRONT DESK WORKER [address] [address] Assigned Heart and Vascular Provider 05/28/23 Jelena David OD [address] [facility] [place] [address] Ophthalmology 06/15/23 Esha Grimm PA-C [address] [place] [phone] Assigned PCP 07/16/23 Valery Veronica PA-C [address] [place], [place] 9229[address] Physician Invertebrate Paleontologist Dermatology 09/19/23 Rey Tay MD [address] [place] [address] 874415 MD Gastroenterology 09/20/23 Rocky Zepeda DO [address] [place] [address] Physician Gastroenterology 09/20/23 Philip Dumont MD [address] [place] [address] 480635 Physician Ophthalmology 09/22/23 Meredith Carrera PA-C [address] [place] [address] 259875 Assigned Gastroenterology Provider 11/01/23 Neil Kent MD [address] [place] [address] Dermatology 11/02/23 [place] [address] [place] [address] [address] Neurological Surgery 12/26/23 Audrey Waite PA-C [address] [place] [address] Physician Invertebrate Paleontologist Dermatology 02/28/24 Valery Veronica PA-C 805178 [place], [place] [address] Physician Invertebrate Paleontologist Dermatology 04/10/24 Herminia Hatch MD [address] [place] [address] Assigned Rheumatology Provider 07/02/24 Jelena David OD [address] [place] [address] [place] [address] Ophthalmology 08/30/24 [place] [address] [place] [address] Assigned Neuroscience Provider 09/30/24 Maru Man PA-C [address] [place] [address] Physician Invertebrate Paleontologist Dermatology 10/03/24 Maru Man PA-C [address] [place] [address] Physician Invertebrate Paleontologist Dermatology 10/22/24 Jelena David OD [address] [place] [address] [place] [address] Assigned Surgical Provider 10/31/24 documented as of this encounter
--- OUTSIDE RECORDS SUMMARY | 2024-11-21 04:17 | XMS_ITS | Encounter Summary ---
Author Organization [facility] Address [address] [place] [address] Care Team Providers Care Nicker And Breaker Name Role Phone Diana Desir [facility] Unavailable Rain Galaviz PA-C Unavailable Tavia Wyatt MD Unavailable Erica Farrell APRN TYPING OFFICE WORKER Unavailable Rich Barrett MD Unavailable [phone] Neil Kent MD Unavailable Diana Desir [facility] Unavailable [phone] Livan Sharif MD Unavailable Catherine Cm MD Unavailable + Valery Veronica PA-C Unavailable Brea Quinn HEAVY TRUCK DRIVER TYPING OFFICE WORKER Unavailable Brea Quinn HEAVY TRUCK DRIVER TYPING OFFICE WORKER Unavailable Jose Francisco Johnson MD Unavailable Alfonso Renteria MD Unavailable [phone] Esha Grimm PA-C Primary Care Provider [phone] Radha Lomeli APRN TYPING OFFICE WORKER Unavailable Jelena David OD Unavailable [phone] Esha Grimm PA-C Unavailable [phone] JeremíasValery damon PA-C Unavailable Rey Tay MD Unavailable Rocky Zepeda DO Unavailable Philip Dumont MD Unavailable Meredith Carrera PA-C Unavailable [phone] Neil Kent MD Unavailable Juan Pablo Emmanuel MD Unavailable Audrey Waite PA-C Unavailable [phone] JeremíasValery damon PA-C Unavailable Herminia Hatch MD Unavailable Jelena David OD Unavailable Juan Pablo Emmanuel MD Unavailable Maru Man PA-C Unavailable Maru Man PA-C Unavailable Jelena David OD Unavailable [phone] Encounter Details Date Type Department Care Team (Late st Contact Info) Description 11/21/2023 [facility] Medical Advice [facility] [address] [place] [address] Sofia Alcantar Social History Tobacco [...] Score 0 10/25/2023 [facility] [...] exercise at this level? 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 Gender Identity Female 03/02/2021 5:45 PM CDT Sexual Orientation Straight 02/28/2020 12 :51 AM CDT documented as of this encounter Plan of Treatment Upcoming Encounters Date Type Department Care Team (Late st Contact Info) Description 11/21/2024 7:00 AM CDT Office Visit [facility] [address] [address] Maru Man PA-C [address] [address] 12/20/2024 2:30 PM CDT Office Visit [address] [place] [phone] Esha Grimm PA-C [address] [place] [address] 04/16/2025 11:00 AM CDT Virtual Visit [facility] [address] 4th [place] [phone] Meredith Carrera PA-C [address] [place] [address] 427315 documented as of this encounter Visit Diagnoses [...] Score: 4 06/20/20 23 8:40 AM HAND DRILLER documented as of this encounter Care Teams Nicker And Breaker Relationship Specialty Start Date End Date Esha Grimm PA-C [address] [place] [address] PCP - General Family Medicine 05/04/23 Diana Desir, [facility] [address] [place], [place] [id number] Pharmacist Pharmacist 04/17/21 Rain Galaviz PA-C [address] [place] [address] DR [facility] [id number] Physician Salon Professional Dermatology 04/28/21 Tavia Wyatt MD [address] [place] [address] DR RAZO [facility] [place] [id number] Dermatology 07/14/21 Erica Farrell APRN TYPING OFFICE WORKER [address] [place] 5[address]35 Nurse Practitioner Cardiovascular Disease 09/09/21 Rich Barrett MD [address] [place] 243935 Physician Ophthalmology 01/21/22 Neil Kent MD [address] [place] [address] 395995 Dermatology 02/24/22 Diana Desir, [facility] 3033 [place], [place] 136176 Assigned [place] Pharmacist 04/07/22 Livan Sharif MD [address] [place] [address] Cardiovascular Disease 05/14/22 Catherine Cm MD [address] [place] [id number] Cardiovascular Disease 07/21/22 Valery Veronica, PA-C [address] [place] [address] 300495 Physician Salon Professional Dermatology 07/21/22 Brea Quinn APRN TYPING OFFICE WORKER 500 [place] [address] Nurse Practitioner Dermatology 09/21/22 Brea Quinn APRN TYPING OFFICE WORKER 6401 [place] [address] Assigned Surgical Provider 10/09/22 05/01/24 [place] [address] [address] [address] Assigned Musculoskeletal Provider 10/09/22 05/01/24 Alfonso Renteria MD 5775 [facility] 200 [place], [place] 930606 Assigned Neuroscience Provider 04/02/23 09/29/24 Radha Lomeli APRN TYPING OFFICE WORKER [address] [id number] [place] [address] Assigned Heart and Vascular Provider 05/28/23 Jelena David OD [address] [facility] [place] [address] Ophthalmology 06/15/23 Esha Grimm PA-C [address] [place] [phone] Assigned PCP 07/16/23 Valery Veronica PA-C 909 [place], [place] 323295 Physician Salon Professional Dermatology 09/19/23 Rey Tay MD [address] [place] [address] 006285 MD Gastroenterology 09/20/23 Rocky Zepeda DO [address] [place] [address] Physician Gastroenterology 09/20/23 Philip Dumont MD [address] [place] [address] 406085 Physician Ophthalmology 09/22/23 Meredith Carrera PA-C [address] [place] [address] 379455 Assigned Gastroenterology Provider 11/01/23 Neil Kent MD [address] [place] [address] Dermatology 11/02/23 [place] [address] [address] [facility] [place] [address] Neurological Surgery 12/26/23 Audrey Waite PA-C [address] [place] [address] Physician Salon Professional Dermatology 02/28/24 Valery Veronica PA-C 465765 [address], [place] [address] Physician Salon Professional Dermatology 04/10/24 Herminia Hatch MD [address] [place] [address] Assigned Rheumatology Provider 07/02/24 Jelena David OD [address] [place] [address] [place] [address] Ophthalmology 08/30/24 [place] [address] [place] [address] Assigned Neuroscience Provider 09/30/24 Maru Man PA-C [address] [place] [address] Physician Salon Professional Dermatology 10/03/24 Maru Man PA-C [address] [place] [address] Physician Salon Professional Dermatology 10/22/24 Jelena David OD [address] [place] [address] [place] [address] Assigned Surgical Provider 10/31/24 documented as of this encounter
--- OUTSIDE RECORDS SUMMARY | 2024-11-21 04:17 | XMS_ITS | Encounter Summary ---
Author Organization [facility] Address [address] [place] [address] Care Team Providers Care Coil Former Name Role Phone Diana Desir [facility] Unavailable Rain Galaviz PA-C Unavailable Tavia Wyatt MD Unavailable Erica Farrell APRN PRINCIPLE INDUSTRIAL HYGIENIST Unavailable Rich Barrett MD Unavailable [phone] Neil Kent MD Unavailable Diana Desir [facility] Unavailable Livan Sharif MD Unavailable Catherine Cm MD Unavailable + Valery Veronica PA-C Unavailable Brea Quinn RACE STEWARD PRINCIPLE INDUSTRIAL HYGIENIST Unavailable Brea Quinn RACE STEWARD PRINCIPLE INDUSTRIAL HYGIENIST Unavailable Jose Francisco Johnson MD Unavailable Alfonso Renteria MD Unavailable [phone] Esha Grimm PA-C Primary Care Provider [phone] Radha Lomeli APRN PRINCIPLE INDUSTRIAL HYGIENIST Unavailable Jelena David OD Unavailable Pao Joseph RN Unavailable Unavailable AlfaJesusEsha M PA-C Unavailable [phone] Valery Veronica PA-C Unavailable [phone] Rey Tay MD Unavailable Rocky Zepeda DO Unavailable Philip Dumont MD Unavailable [phone] Meredith Carrera PA-C Unavailable [phone] Neil Kent MD Unavailable Juan Pablo Emmanuel MD Unavailable [phone] Audrey Waite PA-C Unavailable [phone] JeremíasValery damon PA-C Unavailable Herminia Hatch MD Unavailable Jelena David OD Unavailable Juan Pablo Emmanuel MD Unavailable [phone] Maru Man PA-C Unavailable Maru Man PA-C Unavailable [phone] Jelena David OD Unavailable Encounter Details Date Type Department Care Team (Late st Contact Info) Description 10/26/2023 [facility] Medical Advice [facility] [address] 4th [place] [address] Wesley Powell Social History Tobacco [...] PM CDT 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 Gender Identity Female 03/02/2021 5:45 PM CDT Sexual Orientation Straight 02/28/2020 12 :51 AM CDT documented as of this encounter Plan of Treatment Upcoming Encounters Date Type Department Care Team (Late st Contact Info) Description 11/21/2024 7:00 AM CDT Office Visit [facility] [address] [address] Maru Man PA-C [address] [address] 12/20/2024 2:30 PM CDT Office Visit [facility] [address] [place] [phone] Esha Grimm PA-C [address] [place] [phone] 04/16/2025 11:00 AM CDT Virtual Visit [facility] [address]th [place] [phone] Meredith Carrera PA-C [address] [place] [address] 937835 documented as of this encounter Visit Diagnoses [...] Total Score: 4 06/20/20 23 8:40 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 documented as of this encounter Care Teams Coil Former Relationship Specialty Start Date End Date Esha Grimm PA-C [address] [place] [phone] PCP - General Family Medicine 05/04/23 Diana Desir, [facility] [address] [place] [address] Pharmacist Pharmacist 04/17/21 Rain Galaviz PA-C [address] [place] [address] [place] [address] Physician Blending Machine Operator Dermatology 04/28/21 Tavia Wyatt MD [address] [place] [address] DR [address] [place] [address] Dermatology 07/14/21 Erica Farrell APRN PRINCIPLE INDUSTRIAL HYGIENIST [address] [place] [address] Nurse Practitioner Cardiovascular Disease 09/09/21 Rich Barrett MD [address] [place] 768115 Physician Ophthalmology 01/21/22 Neil Kent MD [address] [place] [address] 200355 Dermatology 02/24/22 [facility] [address] [place] [address] 409446 Assigned [facility] Pharmacist 04/07/22 Livan Sharif MD [address] [place] [address] Cardiovascular Disease 05/14/22 Catherine Cm MD [address] 756635 Cardiovascular Disease 07/21/22 Valery Veronica, PA-C [address] [place] [address] 856165 Physician Blending Machine Operator Dermatology 07/21/22 Brea Quinn APRN PRINCIPLE INDUSTRIAL HYGIENIST 500 [place], [place] 407805 Nurse Practitioner Dermatology 09/21/22 Brea Quinn APRN PRINCIPLE INDUSTRIAL HYGIENIST 6401 [place] [address] Assigned Surgical Provider 10/09/22 05/01/24 [place] [address] [place] [address] [address] Assigned Musculoskeletal Provider 10/09/22 05/01/24 Alfonso Renteria MD [address] [place], [place] 129686 Assigned Neuroscience Provider 04/02/23 09/29/24 Radha Lomeli APRN PRINCIPLE INDUSTRIAL HYGIENIST [address] [id number] [place] [address] Assigned Heart and Vascular Provider 05/28/23 Jelena David OD [address] [facility] [place] [address] Ophthalmology 06/15/23 Pao Joseph, RN Personal Advocate & Liaison (PAL) Nurse 08/01/23 11/07/23 Esha Grimm PA-C [address] [place] [address]-208283 Assigned PCP 07/16/23 Valery Veronica PA-C [address] [place] [address] Physician Blending Machine Operator Dermatology 09/19/23 Rey Tay MD [address] [place] [address] MD Gastroenterology 09/20/23 Rocky Zepeda DO [address] [place] [address] Physician Gastroenterology 09/20/23 Philip Dumont MD [address] [place] [address] Physician Ophthalmology 09/22/23 Meredith Carrera PA-C [address] [place] [address] Assigned Gastroenterology Provider 11/01/23 Neil Kent MD [address] [address] Dermatology 11/02/23 [place] [address] [place] [address] Neurological Surgery 12/26/23 Audrey Waite PA-C [address] [place] [address] 314885 Physician Blending Machine Operator Dermatology 02/28/24 Valery Veronica PA-C [address]00 [address] [place] [address] Physician Blending Machine Operator Dermatology 04/10/24 Herminia Hatch MD [facility]5 [place], [place] 91137125 Assigned Rheumatology Provider 07/02/24 Jelena David OD 3305 [facility] [place] [address] Ophthalmology 08/30/24 [place] [address] [place] [address] Assigned Neuroscience Provider 09/30/24 Maru Man PA-C [address] [place] [address] Physician Blending Machine Operator Dermatology 10/03/24 Maru Man PA-C [address] [place] [address] Physician Blending Machine Operator Dermatology 10/22/24 Jelena David OD [address] [facility] [place] [address] Assigned Surgical Provider 10/31/24 documented as of this encounter
--- OUTSIDE RECORDS SUMMARY | 2024-11-21 04:17 | XMS_ITS | Encounter Summary ---
Author Organization [facility] Address [address] [place] [address] Care Team Providers Care Sales And Catering Coordinator Name Role Phone Diana Desir [facility] Unavailable [phone] Rain Galaviz PA-C Unavailable Tavia Wyatt MD Unavailable Erica Farrell APRN FILL PLANT OPERATOR Unavailable Rich Barrett MD Unavailable [phone] Neil Kent MD Unavailable Diana Desir [facility] Unavailable Livan Sharif MD Unavailable Catherine Cm MD Unavailable + Valery Veronica PA-C Unavailable Brea Quinn CUSTOM TAILOR APPRENTICE FILL PLANT OPERATOR Unavailable Brea Quinn CUSTOM TAILOR APPRENTICE FILL PLANT OPERATOR Unavailable Jose Francisco Johnson MD Unavailable Alfonso Renteria MD Unavailable [phone] Esha Grimm PA-C Primary Care Provider [phone] Radha Lomeli APRN FILL PLANT OPERATOR Unavailable Jelena David OD Unavailable [phone] Esha Grimm PA-C Unavailable [phone] JeremíasValery damon PA-C Unavailable Rey Tay MD Unavailable Duane Rocky Unavailable Philip Dumont MD Unavailable Meredith Carrera PA-C Unavailable [phone] Neil Kent MD Unavailable Juan Pablo [...] 02/01/2024 MyC Medical Advice [facility] Neurology Clinics [address], [address] [place] [address] Macy Pinedo, RN Social History [...] do you attend [facility] or hinduism services? 1 to 4 [...] Score 0 10/25/2023 [facility] [...] exercise at this level? 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 [address] [phone] Maru Man PA-C [address] [address] 12/20/2024 2:30 PM CDT Office Visit [address] [place] [phone] Esha Grimm PA-C [address] [place] [address] 04/16/2025 11:00 AM CDT Virtual Visit [facility] [address] 4th [place] [phone] Meredith Carrera PA-C [address] [place] [address] documented as of this encounter Visit Diagnoses Not on filedocumented in this encounter Additional Health Concerns Infection Onset Date Last Indicated Resolved Time Rule Out COVID-19 04/09/2024 04/09/2024 04/10/2024 6:48 PM CDT Rule Out COVID-19 10/04/2024 10/04/2024 10/05/2024 9:42 AM CDT Rule Out COVID-19 11/20/2024 11/20/2024 Assessment Noted Time PHQ-9 Depression Total Score: 4 06/20/20 23 8:40 AM AIRCRAFT MAINTENANCE SUPERVISOR documented as of this encounter Care Teams Sales And Catering Coordinator Relationship Specialty Start Date End Date Esha Grimm PA-C [address] [place] [address] PCP - General Family Medicine 05/04/23 Diana Desir, [facility] [address] [place] [address] Pharmacist Pharmacist 04/17/21 Rain Galaviz PA-C [address] [place] [address] DR [facility] [place] [address] Physician Sole Filler Dermatology 04/28/21 Tavia Wyatt MD [address] [place] [address] [address] [facility] [place] [id number] Dermatology 07/14/21 Erica Farrell APRN FILL PLANT OPERATOR [address] [place], [place] 353095 Nurse Practitioner Cardiovascular Disease 09/09/21 Rich Barrett MD [address] [place] 285815 Physician Ophthalmology 01/21/22 Neil Kent MD 500 [place], [place] 683585 Dermatology 02/24/22 [facility] 3033 [place], [place] 979006 Assigned [place] Pharmacist 04/07/22 Livan Sharif MD [address] [place] [address] Cardiovascular Disease 05/14/22 Catherine Cm MD [address] [place] 592245 Cardiovascular Disease 07/21/22 Valery Veronica, PA-C [address] [place] [address] Physician Sole Filler Dermatology 07/21/22 Brea Quinn APRN FILL PLANT OPERATOR 500 [place] [address] Nurse Practitioner Dermatology 09/21/22 Brea Quinn APRN FILL PLANT OPERATOR 6401 [facility] [place] [address] Assigned Surgical Provider 10/09/22 05/01/24 [place] [address] [place] [facility] 300 [place] [address] Assigned Musculoskeletal Provider 10/09/22 05/01/24 Alfonso Renteria MD 5775 [facility] 200 [place], [place] 123256 Assigned Neuroscience Provider 04/02/23 09/29/24 Radha Lomeli APRN FILL PLANT OPERATOR [address] [facility] [address] [place] [address] Assigned Heart and Vascular Provider 05/28/23 Jel[address] David OD [address] [facility] [place] [address] Ophthalmology 06/15/23 Esha Grimm PA-C [address] [place] [phone] Assigned PCP 07/16/23 Valery Veronica PA-C [address] [place] [address] Physician Sole Filler Dermatology 09/19/23 Rey Tay MD [address] [place] [address] MD Gastroenterology 09/20/23 Rocky Zepeda DO [address] [place] [address] Physician Gastroenterology 09/20/23 Philip Dumont MD [address] [place] [address] Physician Ophthalmology 09/22/23 Meredith Carrera PA-C [address] [place] [address] Assigned Gastroenterology Provider 11/01/23 Neil Kent MD [address] [place] [address] MD Dermatology 11/02/23 [place] [address] [place] [address] [address] Neurological Surgery 12/26/23 Audrey Waite PA-C [address] [place] [address] Physician Sole Filler Dermatology 02/28/24 Valery Veronica PA-C 308369 [address] [place] [address] Physician Sole Filler Dermatology 04/10/24 Herminia Hatch MD [address] [place] [address] [id number] Assigned Rheumatology Provider 07/02/24 J[place] David [place] [address] [facility] [place] [address] Ophthalmology 08/30/24 [place] [address] [place] [address] Assigned Neuroscience Provider 09/30/24 Maru Man PA-C [address] [place] [address] Physician Sole Filler Dermatology 10/03/24 Maru Man PA-C [address] [place] [address] Physician Sole Filler Dermatology 10/22/24 J[address] David [place] [address] [facility] [place] [address] Assigned Surgical Provider 10/31/24 documented as of this encounter
--- OUTSIDE RECORDS SUMMARY | 2024-11-21 04:17 | XMS_ITS | Encounter Summary ---
Author Organization [facility] Address [address] [place] [address] Care Team Providers Care Vibration Engineer Name Role Phone Diana Desir [facility] Unavailable Rain Galaviz PA-C Unavailable [phone] Tavia Wyatt MD Unavailable Erica Farrell APRN EPIDEMIOLOGY INTERNSHIP Unavailable Rich Barrett MD Unavailable [phone] Neil Kent MD Unavailable Diana Desir [facility] Unavailable [phone] Livan Sharif MD Unavailable Catherine Cm MD Unavailable + Valery Veronica PA-C Unavailable Brea Quinn MEDICAL VOUCHER CLERK EPIDEMIOLOGY INTERNSHIP Unavailable Brea Quinn MEDICAL VOUCHER CLERK EPIDEMIOLOGY INTERNSHIP Unavailable [phone] Jose Francisco Johnson MD Unavailable Alfonso Renteria MD Unavailable [phone] Esha Grimm PA-C Primary Care Provider Radha Lomeli APRN EPIDEMIOLOGY INTERNSHIP Unavailable FrankieJelenae OD Unavailable [phone] Esha Grimm PA-C Unavailable [phone] Valrey Veronica PA-C Unavailable Rey Tay MD Unavailable [...] (Late st Contact Info) Description 12/21/2023 Telephone [facility] [address] [facility] [address] [place] [address] Livan Sharif MD [address] [facility] [address] [place] [address] Call Back (Schedule appt tomorrow ) [...] do you attend [facility] or [facility] services? 1 to 4 [...] Answer Date Recorded PHQ-2 Score 1 10/24/2024 [facility] - Occupational [...] exercise at this level? 20 min 05/07/2024 [place] Depression Scale Answer Date Recorded [place] Depression Score 5 01/14/2021 Last EPDS Self [...] CDT Legal Sex Female 4:13 AM BANQUET PREP COOK Gender Identity Female 03/02/2021 5:45 PM CDT [...] on wait list for . Routing to recruiting scheduler. Carley ZABALA [facility] * Telephone Encounter - Sandra Whiting - 12/21/2023 12:34 PM CDT [facility] Call Center Phone Message May a detailed message be left on voicemail: yes Reason for Call: Other: pt was calling to r/s her appt tomorrow with Kole that was scheduled per RN team. Pt has a conflict and is unable to make it but the next available is not until Oct. SAC can seeon current note that tomorrows [...] AM CDT Office [facility] [address] [phone] Maru Man PA-C [address] [address] 12/20/2024 2:30 PM CDT Office Visit [facility] [id number] [place] [phone] Esha Grimm PA-C [address] [place] [address] 04/16/2025 11:00 AM CDT Virtual Visit [facility] G[facility] Clinic [address] 4th [place] [address] Meredith Carrera PA-C [address] [place] [address] documented as of this encounter Visit Diagnoses Not on filedocumented in this encounter Additional Health Concerns Infection Onset Date Last Indicated Resolved Time Rule Out COVID-19 12/26/2023 12/26/2023 12/26/2023 9:50 AM CDT Rule Out COVID-19 04/09/2024 04/09/2024 04/10/2024 6:48 PM CDT Rule Out COVID-19 10/04/2024 10/04/2024 10/05/2024 9:42 AM CDT Assessment Noted Time PHQ-9 Depression Total Score: 4 06/20/20 23 8:40 AM BANQUET PREP COOK documented as of this encounter Care Teams Vibration Engineer Relationship Specialty Start Date End Date Esha Grimm PA-C [address] [place] [address] PCP - General Family Medicine 05/04/[address] [facility] [address] [place] [address] Pharmacist Pharmacist 04/17/21 Rain Galaviz PA-C [address] [place] [address] [address] [facility] [place] [address] Physician Product Accountant Dermatology 04/28/21 Tavia Wyatt MD [address] [place] [address] [address] [facility] [place] [address] Dermatology 07/14/21 Erica Farrell APRN EPIDEMIOLOGY INTERNSHIP [address] [place] [address] Nurse Practitioner Cardiovascular Disease 09/09/21 Rich Barrett MD [address] [place] [address] Physician Ophthalmology 01/21/22 Neil Kent MD 500 [place] [address] Dermatology 02/24/[address] [facility] [address] [place] [address] Assigned MTM Pharmacist 04/07/22 Livan Sharif MD [address] [place] [address] [place] [address] Cardiovascular Disease 05/14/22 Catherine Cm MD [address] [facility] [place] [facility] [address] [place] [address] Cardiovascular Disease 07/21/22 Valery Veronica PAUcheC [address] [place] [address] Physician Product Accountant Dermatology 07/21/22 Brea Quinn APRN EPIDEMIOLOGY INTERNSHIP [address] [place] [address] Nurse Practitioner Dermatology 09/21/22 Brea Quinn APRN EPIDEMIOLOGY INTERNSHIP [address] [place] [address] Assigned Surgical Provider 10/09/22 05/01/24 [place] [address] [facility] 300 [place] [address] Assigned Musculoskeletal Provider 10/09/22 05/01/24 Alfnoso Renteria MD 5775 [facility] 200 [place] [address] Assigned Neuroscience Provider 04/02/23 09/29/24 Radha Lomeli APRN EPIDEMIOLOGY INTERNSHIP [address] [place] [id number] [place] [address] Assigned Heart and Vascular Provider 05/28/23 Jelena David OD [address] [place] [address] MD Ophthalmology 06/15/23 Esha Grimm PA-C [address] [place] [address] Assigned PCP 07/16/23 Valery Veronica PA-C [address] [place] [address] Physician Product Accountant Dermatology 09/19/23 Rey Tay MD [address] [place] [address] MD Gastroenterology 09/20/23 Rocky Zepeda DO [address] [place] [address] Physician Gastroenterology 09/20/23 Philip Dumont MD [address] [place] [address] Physician Ophthalmology 09/22/23 Meredith Carrera PA-C [address] [place] [address] Assigned Gastroenterology Provider 11/01/23 Neil Kent MD [address] [place] [address] 018390 Dermatology 11/02/23 [place] [address] [place] [address] Neurological Surgery 12/26/23 Audrey Waite PA-C 500 [place] [address] Physician Product Accountant Dermatology 02/28/24 Valery Veronica PA-C [address] [address] Physician Product Accountant Dermatology 04/10/24 Herminia Hatch MD [facility]5 [place], [place] [address] Assigned Rheumatology Provider 07/02/24 Jelena David OD [address] [place] [address] Ophthalmology 08/30/24 [place] [address] [address] Assigned Neuroscience Provider 09/30/24 Maru Man PA-C [address] [place] [address] Physician Product Accountant Dermatology 10/03/24 Maru Man PA-C [address] [place] [address] Physician Product Accountant Dermatology 10/22/24 documented as of this encounter
--- OUTSIDE RECORDS SUMMARY | 2024-11-21 04:17 | XMS_ITS | Encounter Summary ---
Author Organization [facility] Address [address] [place] [address] Care Team Providers Care Outside Dealer Sales Representative Name Role Phone Diana Desir [facility] Unavailable Rain Galaviz PA-C Unavailable Tavia Wyatt MD Unavailable Erica Farrell APRN RED HAT LINUX ADMINISTRATOR Unavailable Rich Barrett MD Unavailable [phone] Neil Kent MD Unavailable Diana Desir [facility] Unavailable Livan Sharif MD Unavailable Catherine Cm MD Unavailable + Valery Veronica PA-C Unavailable Brea Quinn FURNACE REPAIRER HELPER RED HAT LINUX ADMINISTRATOR Unavailable Brea Quinn FURNACE REPAIRER HELPER RED HAT LINUX ADMINISTRATOR Unavailable Jose Francisco Johnson MD Unavailable Alfonso Renteria MD Unavailable [phone] Esha Grimm PA-C Primary Care Provider Lomeli, Radha E FURNACE REPAIRER HELPER RED HAT LINUX ADMINISTRATOR Unavailable Jelena David OD Unavailable [phone] Esha Grimm PA-C Unavailable [phone] JeremíasValery damon PA-C Unavailable Rey Tay MD Unavailable Duane Rocky DO Unavailable Philip Dumont MD Unavailable Meredith Carrera PA-C Unavailable [phone] Neil Kent MD Unavailable Juan Pablo Emmanuel MD Unavailable Audrey Waite PA-C Unavailable JeremíasValery damon PA-C Unavailable Herminia Hatch MD Unavailable Jelena David OD Unavailable [phone] Juan Pablo Emmanuel MD Unavailable [phone] Maru Man PA-C Unavailable Maru Man PA-C Unavailable Reason for Visit * Reason Onset Date Comments Appointment 12/02/2023 Clarification Encounter Details Date Type Department Care Team (Late st Contact Info) Description 12/02/2023 Telephone [facility] Heart [facility] [address] [facility] [address] [place] [phone] Armani Radha E, FURNACE REPAIRER HELPER RED HAT LINUX ADMINISTRATOR [address] [facility] [address] [place] [phone] Appointment (Clarification) Social History Tobacco Use Types [...] Answer Date Recorded PHQ-2 Score 1 10/24/2024 [facility] [...] exercise at this level? 20 min 05/07/2024 [place] Depression Scale Answer Date Recorded [place] Depression Score 5 01/14/2021 Last EPDS Self [...] CDT Legal Sex Female 4:13 AM BILINGUAL TEACHER ASSISTANT Gender Identity Female 03/02/2021 5:45 PM [...] Questions pertaining to OV's scheduled. Carley ZABALA [facility] * Telephone Encounter - Janett Fragoso - 12/02/2023 8:56 AM CDT [facility] Call Center Phone Message May a [...] Description 11/21/2024 7:00 AM CDT Office Visit [address] [phone] Maru Man PA-C [address] [address] 12/20/2024 2:30 PM CDT Office Visit [facility] [address] [place] [phone] Esha Grimm PA-C [address] [place] [address] 04/16/2025 11:00 AM CDT Virtual Visit [facility] Gastro[facility]ology [facility] [place] [address] [facility] [address] 4th [place] [phone] Meredith Carrera PA-C 9 [place] [address] documented as of this encounter Visit Diagnoses Not on filedocumented in this encounter Additional Health Concerns Infection Onset Date Last Indicated Resolved Time Rule Out COVID-19 12/26/2023 12/26/2023 12/26/2023 9:50 AM CDT Rule Out COVID-19 04/09/2024 04/09/2024 04/10/2024 6:48 PM CDT Rule Out COVID-19 10/04/2024 10/04/2024 10/05/2024 9:42 AM CDT Assessment Noted Time PHQ-9 Depression Total Score: 4 06/20/20 8:40 AM BILINGUAL TEACHER ASSISTANT documented as of this encounter Care Teams Outside Dealer Sales Representative Relationship Specialty Start Date End Date Esha Grimm PA-C [address] [place] [phone] PCP - General Family Medicine 05/04/23 Diana Desir, [facility] [address] [place] [address] Pharmacist Pharmacist 04/17/21 Rain Galaviz PA-C [address] [place] [address] [address] [place] [address] Physician Retail Sales Merchandiser Development Dermatology 04/28/21 Tavia Wyatt MD [address] [place] [address] [place] [address] Dermatology 07/14/21 Erica Farrell APRN RED HAT LINUX ADMINISTRATOR [address] [place] [address] Nurse Practitioner Cardiovascular Disease 09/09/21 Rich Barrett MD [address] [place] 299645 Physician Ophthalmology 01/21/22 Neil Kent MD 500 [place] [address] Dermatology 02/24/22 Diana Desir, [facility] 3033 [place], [place] 001486 Assigned [facility] Pharmacist 04/07/22 Livan Sharif MD [address] [place] [address] [place] [address] Cardiovascular Disease 05/14/22 Catherine Cm MD [address] [address] [place] 717635 Cardiovascular Disease 07/21/22 Valery Veronica PAUcheC 909 [place], [place] 493845 Physician Retail Sales Merchandiser Development Dermatology 07/21/22 Brea Quinn APRN RED HAT LINUX ADMINISTRATOR 500 [place], [place] 170465 Nurse Practitioner Dermatology 09/21/22 Brea Quinn APRN RED HAT LINUX ADMINISTRATOR [address] [facility] [place] [address] Assigned Surgical Provider 10/09/22 05/01/24 [place] [address] [place] [address] [place] [address] Assigned Musculoskeletal Provider 10/09/22 05/01/24 Alfonso Renteria MD [address] [facility] 200 [place], [place] 214916 Assigned Neuroscience Provider 04/02/23 09/29/24 Radha Lomeli APRN RED HAT LINUX ADMINISTRATOR [address] [facility] [address] [place] [address] Assigned Heart and Vascular Provider 05/28/23 Jelena David OD [address] [facility] [place] [address] Ophthalmology 06/15/23 Esha Grimm PA-C [address] [place] [phone] Assigned PCP 07/16/23 Valery Veronica PA-C 909 [place], [place] 440965 Physician Retail Sales Merchandiser Development Dermatology 09/19/23 Rey Tay MD 909 [place], [place] 248695 Gastroenterology 09/20/23 Rocky Zepeda DO [address] [place] [address] Physician Gastroenterology 09/20/23 Philip Dumont MD [address] [place] [address] Physician Ophthalmology 09/22/23 Meredith Carrera PA-C [address] [place] [address] Assigned Gastroenterology Provider 11/01/23 Neil Kent MD [address] [place] [address] MD Dermatology 11/02/23 Juan [place] [address] [place] [address] [address] Neurological Surgery 12/26/23 Audrey Waite PA-C [address] [place] [address] Physician Retail Sales Merchandiser Development Dermatology 02/28/24 Valery Veronica PA-C [address] [place] [address] Physician Retail Sales Merchandiser Development Dermatology 04/10/24 Herminia Hatch MD [address] [place] [address] 37065125 Assigned Rheumatology Provider 07/02/24 [place] [address] [place] [address] [place] [id number] Ophthalmology 08/30/24 [place] [address] [place] [address] [address] Assigned Neuroscience Provider 09/30/24 Maru Man PA-C [address] [place] [address] 090570 Physician Retail Sales Merchandiser Development Dermatology 10/03/24 Maru Man PA-C [address] [place] [address] Physician Retail Sales Merchandiser Development Dermatology 10/22/24 documented as of this encounter
--- OUTSIDE RECORDS SUMMARY | 2024-11-21 04:17 | XMS_ITS | Encounter Summary ---
Author Organization [facility] Address [address] [place] [address] Care Team Providers Care Civil Preparedness Coordinator Name Role Phone Diana Desir [facility] Unavailable Rain Galaviz PA-C Unavailable [phone] Tavia Wyatt MD Unavailable Erica Farrell APRN VARNISH DIPPER Unavailable Rich Barrett MD Unavailable [phone] Neil Kent MD Unavailable Diana Desir [facility] Unavailable Livan Sharif MD Unavailable Catherine Cm MD Unavailable + Vlaery Veronica PA-C Unavailable Brea Quinn [employer] TEACHER VARNISH DIPPER Unavailable Brea Quinn [employer] TEACHER VARNISH DIPPER Unavailable Jose Francisco Johnson MD Unavailable Alfonso Renteria MD Unavailable [phone] Esha Grimm PA-C Primary Care Provider Radha Lomeli APRN VARNISH DIPPER Unavailable Jelena David OD Unavailable [phone] Esha Grimm PA-C Unavailable [phone] Valery Veronica PA-C Unavailable Rey aTy MD Unavailable Rocky Zepeda DO Unavailable Philip Dumont MD Unavailable [phone] Meredith Carrera PA-C Unavailable [phone] Neil Kent MD Unavailable Juan Pablo Emmanuel MD Unavailable Audrey Waite PA-C Unavailable [phone] JeremíasValery damon PA-C Unavailable Herminia Hatch MD Unavailable Jelena David OD Unavailable Juan Pablo Emmanuel MD Unavailable Maru Man PA-C Unavailable Maru Man PA-C Unavailable Jelena David OD Unavailable Encounter Details Date Type Department Care Team (Late st Contact Info) Description 11/15/2023 [facility] Medical Advice [facility] [address] [address] Vivian Grant Social History Tobacco Use Types [...] PHQ-2 Score 0 10/25/2023 [facility] - Occupational Stress Questionnaire [...] exercise at this level? 30 min 03/10/2023 [place] Depression Scale Answer Date Recorded [place] Depression Score 5 01/14/2021 Last EPDS Self [...] PM CDT Legal Sex Female 4:13 AM [employer] [facility] [facility] TECHNICIAN Gender Identity Female 03/02/2021 5:45 PM CDT Sexual Orientation Straight 02/28/2020 12 :51 AM CDT documented as of this encounter Plan of Treatment Upcoming Encounters Date Type Department Care Team (Late st Contact Info) Description 11/21/2024 7:00 AM CDT Office Visit [facility] [address] [phone] Maru Man PA-C [address] [address] 12/20/2024 2:30 PM CDT Office Visit [address] [phone] Esha Grimm PA-C [address] [place] [address] 04/16/2025 11:00 AM CDT Virtual Visit [facility] [address] 4th [place] [phone] Meredith Carerra PA-C 909 [place], [place] 719885 documented as of this encounter Visit Diagnoses [...] Total Score: 4 06/20/20 23 8:40 AM [facility] [employer] [facility] TECHNICIAN documented as of this encounter Care Teams Civil Preparedness Coordinator Relationship Specialty Start Date End Date Esha Grimm PA-C [address] [place] [address] PCP - General Family Medicine 05/04/23 Diana Desir, [facility] [address] [place], [place] [address] Pharmacist Pharmacist 04/17/21 Rain Galaviz PA-C [address] [place] [address] DR ARRIOLA [facility] [place] [id number] Physician Iron Launder Operator Dermatology 04/28/21 Tavia Wyatt MD [address] [place] [address] DR RAZO [facility] [place] [id number] Dermatology 07/14/21 Erica Farrell APRN VARNISH DIPPER [address] [place] 273875 Nurse Practitioner Cardiovascular Disease 09/09/21 Rich Barrett MD [address] [place] 946465 Physician Ophthalmology 01/21/22 Neil Kent MD [address] [place] [address] 768015 Dermatology 02/24/22 [facility] 3033 [place], [place] 400396 Assigned [place] Pharmacist 04/07/22 Livan Sharif MD [address] [facility] [place] [address] Cardiovascular Disease 05/14/22 Catherine Cm MD [address] [facility]00 [place] [address]45 Cardiovascular Disease 07/21/22 Valery Veronica, PA-C 909 [place], [place] 550635 Physician Iron Launder Operator Dermatology 07/21/22 Brea Quinn APRN VARNISH DIPPER 500 [place] [address] Nurse Practitioner Dermatology 09/21/22 Brea Quinn APRN VARNISH DIPPER 6401 [place] [address] Assigned Surgical Provider 10/09/22 05/01/24 [place] [address] [facility] 300 [place] [address] Assigned Musculoskeletal Provider 10/09/22 05/01/24 Alfonso Renteria MD 5775 [facility] 200 [place], [place] 603036 Assigned Neuroscience Provider 04/02/23 09/29/24 Radha Lomeli APRN VARNISH DIPPER [address] [address] Assigned Heart and Vascular Provider 05/28/23 Jelena David OD [address] [facility] [address] Ophthalmology 06/15/23 Esha Grimm PA-C [address] [place] [phone] Assigned PCP 07/16/23 Valery Veronica PA-C 909 [place], [place] 260285 Physician Iron Launder Operator Dermatology 09/19/23 Rey Tay MD [address] [place] [address] MD Gastroenterology 09/20/23 Rocky Zepeda DO [address] [place] [address] Physician Gastroenterology 09/20/23 Philip Dumont MD [address] [place] [address] 508995 Physician Ophthalmology 09/22/23 Meredith Carrera PA-C [address] [place] [address] 436845 Assigned Gastroenterology Provider 11/01/23 Neil Kent MD [address] [place] [address] Dermatology 11/02/23 [place] [address] [facility] [place] [address] Neurological Surgery 12/26/23 Audrey Waite PA-C [address] [place] [address] Physician Iron Launder Operator Dermatology 02/28/24 Valery Veronica PA-C 111864 [place] [address] Physician Iron Launder Operator Dermatology 04/10/24 Herminia Hatch MD [address] [place] [address] Assigned Rheumatology Provider 07/02/24 [place] David OD [address] [facility] [place] [address] Ophthalmology 08/30/24 [place] [address] [place] [address] Assigned Neuroscience Provider 09/30/24 Maru Man PA-C [address] [place] [address] Physician Iron Launder Operator Dermatology 10/03/24 Maru Man PA-C [address] [place] [address] Physician Iron Launder Operator Dermatology 10/22/24 Jelena David OD 3305 [facility] [place] [address] Assigned Surgical Provider 10/31/24 documented as of this encounter
--- OUTSIDE RECORDS SUMMARY | 2024-11-21 04:17 | XMS_ITS | Encounter Summary ---
Author Organization [place] Address [address] [place] [address] Care Team Providers Care Metal Fabricating Inspector Name Role Phone Diana Desir [facility] Unavailable Rain Galaviz PA-C Unavailable [phone] Tavia Wyatt MD Unavailable Erica Farrell APRN DIESEL STATIONARY ENGINEER Unavailable Rich Barrett MD Unavailable [phone] Neil Kent MD Unavailable Diana Desir [facility] Unavailable Livan Sharif MD Unavailable Catherine Cm MD Unavailable + Valery Veronica PA-C Unavailable Brea Quinn PREPARER DIESEL STATIONARY ENGINEER Unavailable Brea Quinn PREPARER DIESEL STATIONARY ENGINEER Unavailable Jose Francisco Johnson MD Unavailable Alfonso Renteria MD Unavailable [phone] Esha Grimm PA-C Primary Care Provider Radha Lomeli APRN DIESEL STATIONARY ENGINEER Unavailable Jelena David OD Unavailable Pao Joseph RN Unavailable Unavailable AlfaJesusEsha M PA-C Unavailable [phone] Valery Veronica PA-C Unavailable Rey Tay MD Unavailable Rocky Zepeda DO Unavailable Philip Dumont MD Unavailable Meredith Carrera PA-C Unavailable [phone] Neil Kent MD Unavailable Juan Pablo Emmanuel MD Unavailable Audrey Waite PA-C Unavailable JeremíasValery damon PA-C Unavailable [phone] Herminia Hatch MD Unavailable Jelena David OD Unavailable [phone] Juan Pablo Emmanuel MD Unavailable Maru Man PA-C Unavailable Maru Man PA-C Unavailable Jelena David OD Unavailable Encounter Details Date Type Department Care Team (Late st Contact Info) Description 10/25/2023 [facility] [place] Medical Advice [facility] [address] [place] [address] N[address], RD [address] [place] [address] Social History Tobacco Use Types [...] [facility] attend [facility]? 1 to 4 [...] Score 0 10/25/2023 [facility] [...] Legal Sex Female 4:13 AM MANAGER OF IT Gender Identity Female 03/02/2021 5:45 PM CDT Sexual Orientation Straight 02/28/2020 12 :51 AM CDT documented as of this encounter Plan of Treatment Upcoming Encounters Date Type Department Care Team ([facility] st Contact Info) Description 11/21/2024 7:00 AM CDT Office Visit [facility] [address] [phone] Maru Man PA-C [address] [address] 12/20/2024 2:30 PM CDT Office Visit [facility] [address] [place] [address] Esha Grimm PA-C [address] [place] [address] 04/16/2025 11:00 AM CDT Virtual Visit [facility] [address] 4th [place] [address] Meredith Carrera PA-C [address] [place] [address] documented as of this encounter Visit Diagnoses [...] Score: 4 06/20/20 23 8:40 AM MANAGER OF IT documented as of this encounter Care Teams Metal Fabricating Inspector Relationship Specialty Start Date End Date Esha Grimm PA-C [id number] [place] [phone] PCP - General Family Medicine 05/04/23 Diana Desir [facility] [address] [place] [address] Pharmacist Pharmacist 04/17/21 Rain Galaviz PA-C [address] [place] [address] [address] [place] [address] Physician Apartment Maintenance Dermatology 04/28/21 Tavia Wyatt MD [address] [place] [address] [place] [address] Dermatology 07/14/21 Erica Farrell APRN DIESEL STATIONARY ENGINEER [address] [place] 961125 Nurse Practitioner Cardiovascular Disease 09/09/21 Rich Barrett MD [address] [place] 542265 Physician Ophthalmology 01/21/22 Neil Kent MD 500 [place], [place] 541075 Dermatology 02/24/22 Diana Desir, [facility] [address] [place], [place] 962456 Assigned MTM Pharmacist 04/07/22 Livan Sharif MD [address] [place] 16[address]35 Cardiovascular Disease 05/14/22 Catherine Cm MD [address] [place] [address] Cardiovascular Disease 07/21/22 Vlaery Veronica PA-C 909 [place] [address] Physician Apartment Maintenance Dermatology 07/21/22 Brea Quinn APRN DIESEL STATIONARY ENGINEER 500 [place] [address] Nurse Practitioner Dermatology 09/21/22 Brea Quinn APRN DIESEL STATIONARY ENGINEER 6401 [place], [place] 525442 Assigned Surgical Provider 10/09/22 05/01/24 [place] [address] [facility] [address] [place], [place] 156687 Assigned Musculoskeletal Provider 10/09/22 05/01/24 Alfonso Renteria MD 5775 [facility] 200 [place] [address] Assigned Neuroscience Provider 04/02/23 09/29/24 Radha Lomeli APRN DIESEL STATIONARY ENGINEER 6405 [facility] [address] [place] 954575 Assigned Heart and Vascular Provider 05/28/23 Jelena David OD [address] [facility] [address] [place] [id number] Ophthalmology 06/15/23 Pao Joseph, VJ Personal Advocate & Liaison (PAL) Nurse 08/01/23 11/07/23 Esha Grimm PA-C [address] [place] [phone] Assigned PCP 07/16/23 Valery Veronica PA-C [address] [place] [address] Physician Apartment Maintenance Dermatology 09/19/23 Rey Tay MD [address] [place] [address] 363015 MD Gastroenterology 09/20/23 Rocky Zepeda DO [address] [place] [address] 595395 Physician Gastroenterology 09/20/23 Philip Dumont MD [address] [place] [address] 236685 Physician Ophthalmology 09/22/23 Meredith Carrera PA-C [address] [place] [address] 927925 Assigned Gastroenterology Provider 11/01/23 Neil Kent MD [address] [address] Dermatology 11/02/23 [place] [address] [facility] [place], [place] 413207 Neurological Surgery 12/26/23 Audrey Waite PA-C [address] [place] [address] Physician Apartment Maintenance Dermatology 02/28/24 Valery Veronica PA-C [address] [place] [address] Physician Apartment Maintenance Dermatology 04/10/24 Herminia Hatch MD [address] [place] [address] Assigned Rheumatology Provider 07/02/24 Jelena David OD [address] [place] [address] [place] [address] Ophthalmology 08/30/24 [place] [address] [place] [address] Assigned Neuroscience Provider 09/30/24 Maru Man PA-C [address] [place] [address] Physician Apartment Maintenance Dermatology 10/03/24 Maru Man PA-C [address] [place] [address] Physician Apartment Maintenance Dermatology 10/22/24 Jelena David OD [address] [place] [address] [place] [address] Assigned Surgical Provider 10/31/24 documented as of this encounter
--- OUTSIDE RECORDS SUMMARY | 2024-11-21 04:17 | XMS_ITS | Encounter Summary ---
Author Organization [place] Address [address] [place] [address] Care Team Providers Care Treating Plant Pumper Name Role Phone Lita Oseguera Unavailable Unavailable Marjia Edgar APRN TRANSMISSION OPERATOR Primary Care Provider + Chanelle Mccann APRN CNM Unavailab le Kyara De La Fuente RN Unavailable [phone] Marija Edgar APRN TRANSMISSION OPERATOR Unavailable [phone] Mynor Broussard MD Unavailable [phone] Keisha Dotson MD Unavailable [phone] Mary Mejia Unavailable Unavailable Stacey Briones CAFE ASSISTANT Unavailable [phone] Lesley Guillermo CHW Unavailable Mary Mejia Unavailable Unavailable Lita Oseguera Unavailable Unavailable Galo Burrell MD Unavailable Unavailable Cristina Wood Unavailable Lesley Guillermo CHW Unavailable Meredith Bedoya Unavailable Unavailable Cristina Wood Unavailable Diana Desir [facility] Unavailable Ruhland, Rain Lena PA-C Unavailable Summer Lara MD Unavailable [phone] Summer Lara MD Unavailable [phone] Summer Lara MD Unavailable [phone] Tavia Wyatt MD Unavailable [phone] Johnny Murillo MD Unavailable [phone] Erica Farrell APRN TRANSMISSION OPERATOR Unavailable VikasTeresita H Unavailable Tavia Wyatt MD Unavailable [phone] Diana Desir [facility] Unavailable [phone] Rich Barrett MD Unavailable [phone] Neil Kent MD Unavailable Roney Story [facility] Unavailable Erica Farrell APRN TRANSMISSION OPERATOR Unavailable Diana Desir [facility] Unavailable [phone] Jelena David OD Unavailable Galo Burrell MD Unavailable Unavailable Livan Sharif MD Unavailable Livan Sharif MD Unavailable Catherine Cm MD Unavailable + Valery Veronica PA-C Unavailable [phone] Catherine Cm MD Unavailable + Johnny Murillo MD Unavailable [phone] Brea Quinn APRN TRANSMISSION OPERATOR Unavailable [phone] Brea Quinn CATTLE SPRAYER TRANSMISSION OPERATOR Unavailable [phone] Jose Francisco Johnson MD Unavailable Livan Sharif MD Unavailable Catherine Cm MD Unavailable + Sydnie Martinez RN Unavailable Unavailable Alfonso Renteria MD Unavailable [phone] Esha Grimm PA-C Primary Care Provider Cheng Todd PA-C Unavailable Radha Lomeli APRN, CNP Unavailable Jelena David OD Unavailable [phone] Pao Joseph RN Unavailable Unavailable Esha Grimm PA-C Unavailable [phone] Valery Veronica PA-C Unavailable Rey Tay MD Unavailable Rocky Zepeda DO Unavailable Philip Dumont MD Unavailable [phone] Meredith Carrera PA-C Unavailable [phone] Neil Kent MD Unavailable Juan Pablo Emmanuel MD Unavailable Audrey Waite PA-C Unavailable Valery Veronica PA-C Unavailable Herminia Hatch MD Unavailable Jelena David OD Unavailable Juan Pablo Emmanuel MD Unavailable Maru Man PA-C Unavailable [phone] Maru Man PA-C Unavailable [phone] Jelena David OD Unavailable [phone] Encounter Details Date Type Department Care Team (Latest Contact Info) Description 07/29/2020 [facility] [address] [place] [phone] Marija Edgar APRN TRANSMISSION OPERATOR [address] [place] [phone] Palpitations (Primary Dx) Social History Tobacco Use [...] PM CDT Legal Sex Female 4:13 AM YARN SKEINS EXAMINER Gender Identity Female 03/02/2021 5:45 PM CDT Sexual Orientation Straight 02/28/2020 12 :51 AM CDT COVID-19 Exposure Response Date Recorded In the last month, have you been in contact with someone who was confirmed or suspected to have Coronavirus / COVID-19? No / Unsure 07/30/2020 4:53 PM YARN SKEINS EXAMINER documented as of this encounter Miscellaneous Notes * Telephone Encounter - Marija Edgar APRN CNP - 07/30/2020 10:21 AM YARN SKEINS EXAMINER Responded via [employer] Marija Edgar APRN CNP on 07/30/2020 at 10:28 AM SKEINS EXAMINER documented in this encounter Plan of Treatment Upcoming Encounters Date Type Department Care Team (Late st Contact Info) Description 11/21/2024 7:00 AM CDT Office Visit [address] [phone] Maru Man PA-C [address] [address] 12/20/2024 2:30 PM CDT Office Visit [address] [phone] Esha Grimm PA-C [address] [place] [address] 04/16/2025 11:00 AM CDT Virtual Visit [facility] [address] [place] [phone] Meredith Carrera PA-C 909 [place] [address] documented as of this encounter Visit Diagnoses Diagnosis Palpitations- Primary documented in this encounter Additional Health Concerns Infection Onset Date Last Indicated Resolved Time Rule Out COVID-19 07/30/2020 07/30/2020 07/30/2020 7:11 PM YARN SKEINS EXAMINER Rule Out COVID-19 08/30/2020 08/30/2020 08/30/2020 5:05 PM YARN SKEINS EXAMINER Rule Out COVID-19 09/24/2020 09/24/2020 09/24/2020 9:24 AM CDT Rule Out COVID-19 11/05/2020 11/05/2020 11/06/2020 1:09 PM CDT Rule Out COVID-19 05/11/2021 05/11/2021 05/13/2021 10:18 AM CDT Rule Out COVID-19 07/13/2021 07/13/2021 07/14/2021 3:04 PM YARN SKEINS EXAMINER Rule Out COVID-19 07/18/2021 07/18/2021 07/20/2021 1:56 PM YARN SKEINS EXAMINER COVID-19 07/18/2021 07/18/2021 08/08/2021 11:3 9 PM YARN SKEINS EXAMINER Rule Out COVID-19 12/18/2021 12/18/2021 12/19/2021 11:34 AM CDT Rule Out COVID-19 02/24/2022 02/24/2022 02/25/2022 1:08 PM CDT Rule Out COVID-19 04/26/2022 04/26/2022 04/26/2022 6:47 AM CDT Rule Out COVID-19 05/17/2022 05/17/2022 05/17/2022 10:20 PM YARN SKEINS EXAMINER Rule Out COVID-19 06/09/2022 06/09/2022 06/09/2022 9:35 AM YARN SKEINS EXAMINER COVID-19 06/09/2022 06/09/2022 06/30/2022 11:4 1 PM YARN SKEINS EXAMINER Rule Out COVID-19 11/10/2022 11/10/2022 11/11/2022 12:17 PM CDT Rule Out COVID-19 03/07/2023 03/07/2023 03/07/2023 1:20 PM CDT Rule Out COVID-19 12/26/2023 12/26/2023 12/26/2023 9:50 AM CDT Rule Out COVID-19 04/09/2024 04/09/2024 04/10/2024 6:48 PM CDT Rule Out COVID-19 10/04/2024 10/04/2024 10/05/2024 9:42 AM CDT Rule Out COVID-19 11/20/2024 11/20/2024 Assessment Noted Time PHQ-9 Depression Total Score: 9 06/25/20 20 7:04 AM YARN SKEINS EXAMINER documented as of this encounter Care Teams Treating Plant Pumper Relationship Specialty Start Date End Date Marija Edgar APRN TRANSMISSION OPERATOR PCP - General Nurse Practitioner 04/30/20 04/14/23 Esha Grimm PA-C [address] [place] [phone] PCP - General Family Medicine 05/04/23 Lita Oseguera Personal Advocate & Liaison (PAL) 02/28/20 03/27/23 Chanelle Mccann APRN [place]dam [address] [address] Assigned OBGYN Provider 05/02/2005/09 Kyara De La Fuente, RN Specialty Press Leader Neurology 06/04/20 03/05/21 Marija Edgar APRN CNP Assigned PCP 06/08/20 04/29/23 Mynor Broussard MD [address] [address] Assigned Surgical Provider 06/01/20 11/28/21 Keisha Dotson MD 909 [place], [place] 498945 Assigned Neuroscience Provider 06/04/20 04/01/23 Mary Mejia Financial Resource Worker 08/07/20 08/21/20 Stacey Briones, [facility] Lead Press Leader Primary Care - CC 08/11/2012/30 Lesley Guillermo, [facility] Community Health Worker 08/11/2010/01 Mary Mejia Financial Resource Worker 09/02/20 10/06/20 Lita Oseguera Personal Advocate & Liaison (PAL) Family Medicine 09/10/20 09/21/20 Galo Burrell MD Assigned Heart and Vascular Provider 10/05/20 04/02/22 Cristina Wood Financial Resource Worker 10/07/20 10/14/20 Lesley Guillermo, [facility] Community Health Worker 10/23/2012/30 Meredith Bedoya Financial Resource Worker 10/23/20 11/23/20 Cristina Wood Financial Resource Worker 02/09/21 02/09/21 Thang Diana T, [facility] [address] [place] [address] Pharmacist Pharmacist 04/17/21 Rain Galaviz PA-C [address] [place] [address] DR [place] [place], [place] [phone] Physician Jailor Dermatology 04/28/21 Summer Lara MD [address] [place] [address] 074164 Assigned OBGYN Provider 05/10/2105/23 Summer Lara MD [address] [place] [address] 407694 Assigned OBGYN Provider 05/31/21 Summer Lara MD [address] [place] [address] 073174 Assigned OBGYN Provider 05/24/2105/30 Tavia Wyatt MD [address] [place] [address] 240104 Dermatology 07/14/21 Johnny Murillo MD [address] [place], [place] 837614 Assigned Musculoskeletal Provider 08/30/21 03/17/22 Erica Farrell APRN TRANSMISSION OPERATOR [address] [facility] [address] [place], [place] [phone] Nurse Practitioner Cardiovascular Disease 09/09/21 Teresita Bean [facility] [address] [place] [phone] Pharmacist Pharmacist 09/24/21 09/29/21 Tavia Wyatt MD [address] [place] [address] Assigned Surgical Provider 11/29/21 05/07/22 Diana Desir, [facility] [place] [address] Assigned MTM Pharmacist 01/02/22 Rich Barrett MD [facility] [place] [address] Physician Ophthalmology 01/21/22 Neil Kent MD 500 [place], [place] 000455 Dermatology 02/24/22 Roney Story DPM [address] [facility] [address] [place], [place] 997037 Assigned Musculoskeletal Provider 03/20/22 08/13/22 Erica Farrell APRN TRANSMISSION OPERATOR 1700 [place] [address] Assigned Heart and Vascular Provider 04/03/22 04/16/22 Diana Desir, [facility] [place] [address] Assigned MTM Pharmacist 04/07/22 Jelena David OD 3305 [facility] [place] [address] Assigned Surgical Provider 05/08/22 10/08/22 Galo Burrell MD Assigned Heart and Vascular Provider 04/17/22 06/11/22 Livan Sharif MD [address] [place] [address] Cardiovascular Disease 05/14/22 Livan Sharif MD [address] [place] [address] Assigned Heart and Vascular Provider 06/12/22 07/23/22 Catherine Cm MD [address] [place] [address] Cardiovascular Disease 07/21/22 Valery Veronica, PA-C 909 [place] [address] Physician Jailor Dermatology 07/21/22 Catherine Cm MD [address] [place] [address] Assigned Heart and Vascular Provider 07/24/22 11/05/22 Johnny Murillo MD [address] [facility] [address] [place] [address] Assigned Musculoskeletal Provider 08/14/22 10/08/22 Brea Quinn APRN TRANSMISSION OPERATOR 500 [place] [address] Nurse Practitioner Dermatology 09/21/22 Brea Quinn APRN TRANSMISSION OPERATOR 6401 [facility] [place] [address] Assigned Surgical Provider 10/09/22 05/01/24 [place] [address] [place] [facility] 300 [place] [address] Assigned Musculoskeletal Provider 10/09/22 05/01/24 Livan Sharif MD 6405 [facility] [address] [place] [address] Assigned Heart and Vascular Provider 11/06/22 11/12/22 Catherine Cm MD 6[address] [facility] [address] [place] [address] Assigned Heart and Vascular Provider 11/13/22 05/27/23 Sydnie Martinez RN Personal Advocate & Liaison (PAL) Family Medicine 03/28/23 07/31/23 Alfonso Renteria MD 5775 [facility] 200 [place], [place] 152746 Assigned Neuroscience Provider 04/02/23 09/29/24 Cheng Todd PA-C [address] [place] [address] Assigned PCP 04/30/23 07/15/23 Radha Lomeli APRN TRANSMISSION OPERATOR [address] [place], [place] 049765 Assigned Heart and Vascular Provider 05/28/23 Jelena David OD [address] [facility] [address] MD Ophthalmology 06/15/23 Pao Joseph, VJ Personal Advocate & Liaison (PAL) Nurse 08/01/23 11/07/23 Esha Grimm PA-C [address] [place] [address] Assigned PCP 07/16/23 Valery Veronica PA-C [address] [place] [address] 599025 Physician Jailor Dermatology 09/19/23 Rey Tay MD [address] [place] [address] 005665 Gastroenterology 09/20/23 Rocky Zepeda DO [address] [place] [address] 567135 Physician Gastroenterology 09/20/23 Philip Dumont MD [address] [place] [address] 115675 Physician Ophthalmology 09/22/23 Meredith Carrera PA-C [address] [place] [address] 925355 Assigned Gastroenterology Provider 11/01/23 Neil Kent MD [address] [place] [address]25 Dermatology 11/02/23 [place] [address] [place] [place] [address] Neurological Surgery 12/26/23 Audrey Waite PA-C [address] [place] [address] Physician Jailor Dermatology 02/28/24 Valery Veronica PA-C 950352 [address], [place] [address] Physician Jailor Dermatology 04/10/24 Herminia Hatch MD [address] [place] [address] Assigned Rheumatology Provider 07/02/24 Jelena David OD [address] [place] [address] [place] [address] Ophthalmology 08/30/24 [place] [address] [place] [address] Assigned Neuroscience Provider 09/30/24 Maru Man PA-C [address] [place] [address] Physician Jailor Dermatology 10/03/24 Maru Mna PA-C [address] [place] [address] Physician Jailor Dermatology 10/22/24 Jelena David OD 3[address] [facility] [place] [address] Assigned Surgical Provider 10/31/24 documented as of this encounter
--- OUTSIDE RECORDS SUMMARY | 2024-11-21 04:17 | XMS_ITS | Encounter Summary ---
Author Organization [place] Address [address] [place] [address] Care Team Providers Care Behavior Support Specialist Name Role Phone Lita Oseguera Unavailable Unavailable Marija Edgar APRN SR. MANAGER Primary Care Provider + Marija Edgar APRN SR. MANAGER Unavailable [phone] Keisha Dotson MD Unavailable Diana Desir [facility] Unavailable Rain Galaviz PA-C Unavailable Tavia Wyatt MD Unavailable Erica Farrell APRN SR. MANAGER Unavailable Rich Barrett MD Unavailable [phone] Neil Kent MD Unavailable Diana Desir [facility] Unavailable [phone] Livan Sharif MD Unavailable Catherine Cm MD Unavailable + Valery Veronica PA-C Unavailable Brea Quinn PEDIATRIC SPORTS MEDICINE SPECIALIST SR. MANAGER Unavailable Brea Quinn PEDIATRIC SPORTS MEDICINE SPECIALIST SR. MANAGER Unavailable [phone] Jose Francisco Johnson MD Unavailable Catherine Cm MD Unavailable + Sydnie Martinez RN Unavailable Unavailable Alfonso Renteria MD Unavailable [phone] Esha Grimm PA-C Primary Care Provider Cheng Todd PA-C Unavailable Armani Radha Stovall ARLENE SR. MANAGER Unavailable Jelena David OD Unavailable Pao Joseph RN Unavailable Unavailable Esha Grimm PA-C Unavailable [phone] Valery Veronica PA-C Unavailable Rey Tay MD Unavailable Rocky Zepeda DO Unavailable Philip Dumont MD Unavailable [phone] Meredith Carrera PA-C Unavailable [phone] Neil Kent MD Unavailable Juan Pablo Emmanuel MD Unavailable Audrey Waite PA-C Unavailable Valery Veronica PA-C Unavailable Herminia Hatch MD Unavailable Jelena David OD Unavailable [phone] Juan Pablo Emmanuel MD Unavailable Maru Man PA-C Unavailable [phone] Maru Man PA-C Unavailable [phone] Jelena David OD Unavailable Encounter Details Date Type Department Care Team (Late st Contact Info) Description 12/23/2022 MyC Medical Advice [facility] [address] [place] [phone] Lauren Claudio PA-C [address] [place] [address] Social History Tobacco Use Types Packs/Day Years [...] How often do you attend mandaen or baptist serv ices? Never 09/22/2021 Do [...] Answer Date Recorded PHQ-2 Score 1 10/11/2022 [facility] - Occupational [...] in a intermediate (including now)? No 09/22/2021 [place] Depression Scale Answer Date Recorded [place] Depression Score 5 01/14/2021 Last EPDS Self Harm Result Not on file 01/14 Education Answer Date Recorded What is the highest level of school you have completed or the highest degree you have received? 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 Gender Identity Female 03/02/2021 5:45 PM [...] 11/21/2024 7:00 AM CDT Office Visit [address] [phone] Maru Man PA-C [address] [place] [address] 12/20/2024 2:30 PM CDT Office Visit [facility] [address] [place] [phone] Esha Grimm PA-C [address] [place] [address] 04/16/2025 11:00 AM CDT Virtual Visit [facility] Gastroenterology Clinic [address] 4th [place] [address] Meredith Carrera PA-C [address] [place] [address] 305225 documented as of this encounter Visit Diagnoses [...] documented as of this encounter Care Teams Behavior Support Specialist Relationship Specialty Start Date End Date Marija Edgar APRN SR. MANAGER PCP - General Nurse Practitioner 04/30/20 04/14/23 Esha Grimm PA-C [address] [place] [address] PCP - General Family Medicine 05/04/23 Lita Oseguera Personal Advocate & Liaison (PAL) 02/28/20 03/27/23 Marija Edgar APRN SR. MANAGER Assigned PCP 06/08/20 04/29/23 Keisha Dotson MD [address] [place] [address] Assigned Neuroscience Provider 06/04/20 04/01/23 Diana Desir [facility] 3033 [place], [place] 628166 Pharmacist Pharmacist 04/17/21 Rain Galaviz PA-C [address] [place] [address] [address] [place] [address] Physician Powder Mixer Dermatology 04/28/21 Tavia Wyatt MD [address] [place] [address] [address] [place] [address] Dermatology 07/14/21 Erica Farrell APRN SR. MANAGER [address] [place], [place] 212[address] Nurse Practitioner Cardiovascular Disease 09/09/21 Rich Barrett MD [address] [place], [place] 137[address]85 Physician Ophthalmology 01/21/22 Neil Kent MD [address] [place] [address] 527775 Dermatology 02/24/22 [facility] [address] [place] [address] Assigned [place] Pharmacist 04/07/22 Livan Sharif MD [address] [place], [place] 110645 Cardiovascular Disease 05/14/22 Catherine Cm MD [address] [place], [place] 788915 Cardiovascular Disease 07/21/22 Valery Veronica, PA-C [address] [place] [address] Physician Powder Mixer Dermatology 07/21/22 Brea Quinn APRN SR. MANAGER [address] [place] [address] Nurse Practitioner Dermatology 09/21/22 Brea Quinn APRN SR. MANAGER 6401 [place] [address] Assigned Surgical Provider 10/09/22 05/01/24 [place] [address] [address] Assigned Musculoskeletal Provider 10/09/22 05/01/24 Catherine Cm MD 6405 [facility] [address] [place] [address] Assigned Heart and Vascular Provider 11/13/22 05/27/23 Sydnie Martinez RN Personal Advocate & Liaison (PAL) Family Medicine 03/28/23 07/31/23 Alfonso Renteria MD 5775 [facility] 200 [place] [address] Assigned Neuroscience Provider 04/02/23 09/29/24 Cheng Todd PA-C [address] [place] [address] [phone] Assigned PCP 04/30/23 07/15/23 Radha Lomeli APRN SR. MANAGER [address] [place] [phone] [place] [address] Assigned Heart and Vascular Provider 05/28/23 Jelena David OD [address] [facility] [address] MD Ophthalmology 06/15/23 Pao Joseph, RN Personal Advocate & Liaison (PAL) Nurse 08/01/23 11/07/23 Esha Grimm PA-C [address] [place] [address] Assigned PCP 07/16/23 Valery Veronica PA-C [address] [place] [address] 062275 Physician Powder Mixer Dermatology 09/19/23 Rey Tay MD [address] [place] [address] Gastroenterology 09/20/23 Rocky Zepeda DO [address] [place] [address] 161545 Physician Gastroenterology 09/20/23 Philip Dumont MD [address] [place] [address] 272345 Physician Ophthalmology 09/22/23 Meredith Carrera PA-C [address] [place] [address] [phone] Assigned Gastroenterology Provider 11/01/23 Neil Kent MD [address] [phone] Dermatology 11/02/23 [place] [address] [place] [address] Neurological Surgery 12/26/23 Audrey Waite PA-C [address] [place] [address] Physician Powder Mixer Dermatology 02/28/24 Valery Veronica PA-C 665410 [place], [place] [address] Physician Powder Mixer Dermatology 04/10/24 Herminia Hatch MD [address] [place] [address] [phone] Assigned Rheumatology Provider 07/02/24 [place] [address] [place] [address] [place] [address] Ophthalmology 08/30/24 [place] [address] [facility] [place] [address] Assigned Neuroscience Provider 09/30/24 Maru Man PA-C [address] [place] [address] Physician Powder Mixer Dermatology 10/03/24 Maru Man PA-C [address] [place] [address] Physician Powder Mixer Dermatology 10/22/24 Jelena David OD [address] [facility] [address] [place], [place] [address] Assigned Surgical Provider 10/31/24 documented as of this encounter
--- OUTSIDE RECORDS SUMMARY | 2024-11-21 04:17 | XMS_ITS | Encounter Summary ---
Author Organization [place] Address [address] [place] [address] Care Team Providers Care Steeler Name Role Phone Diana Desir [facility] Unavailable [phone] Rain Galaviz PA-C Unavailable Tavia Wyatt MD Unavailable Erica Farrell APRN MACHINE PAINT MIXER Unavailable Rich Barrett MD Unavailable [phone] Neil Kent MD Unavailable Diana Desir [facility] Unavailable Livan Sharif MD Unavailable Catherine Cm MD Unavailable + Valery Veronica PA-C Unavailable Brea Quinn HEAD BELLHOP CAPTAIN MACHINE PAINT MIXER Unavailable Brea Quinn HEAD BELLHOP CAPTAIN MACHINE PAINT MIXER Unavailable Jose Francisco Johnson MD Unavailable Alfonso Renteria MD Unavailable [phone] Esha Grimm PA-C Primary Care Provider Radha Lomeli APRN MACHINE PAINT MIXER Unavailable Jelena David OD Unavailable Pao Joseph RN Unavailable Unavailable AlfaJesusEsha M PA-C Unavailable [phone] Valery Veronica PA-C Unavailable [phone] Rey Tay MD Unavailable Rocky Zepeda DO Unavailable Philip Dumont MD Unavailable [phone] Meredith Carrera PA-C Unavailable [phone] Neil Kent MD Unavailable Juan Pablo Emmanuel MD Unavailable [phone] Audrey Waite PA-C Unavailable [phone] JeremíasValery damon PA-C Unavailable Herminia Hatch MD Unavailable Jelena David OD Unavailable Juan Pablo Emmanuel MD Unavailable [phone] Maru Man PA-C Unavailable Maru Man PA-C Unavailable [phone] Jelena David OD Unavailable Encounter Details Date Type Department Care Team (Late st Contact Info) Description 10/25/2023 MyC Medical Advice [facility] Gastroenterology Clinic [address] 4th [place] [address] [place] Social History Tobacco [...] Recorded PHQ-2 Score 0 10/25/2023 [facility] of Occupat [...] exercise at this level? 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 Gender Identity Female 03/02/2021 5:45 PM CDT Sexual Orientation Straight 02/28/2020 12 :51 AM CDT documented as of this encounter Plan of Treatment Upcoming Encounters Date Type Department Care Team (Late st Contact Info) Description 11/21/2024 7:00 AM CDT Office Visit [facility] [address] [address] Maru Man PA-C [address] [address] 12/20/2024 2:30 PM CDT Office Visit [facility] [address] [place] [phone] Esha rGimm PA-C [address] [place] [phone] 04/16/2025 11:00 AM CDT Virtual Visit [facility] Gastroenterology Clinic [address]th [place] [phone] Meredith Carrera PA-C [address] [place] [address] 352645 documented as of this encounter Visit Diagnoses [...] Total Score: 4 06/20/20 23 8:40 AM BILINGUAL RESEARCH INTERVIEWER documented as of this encounter Care Teams Steeler Relationship Specialty Start Date End Date Esha Grimm PA-C [address] [place] [phone] PCP - General Family Medicine 05/04/23 Diana Desir, [facility] [address] [facility] [address] Pharmacist Pharmacist 04/17/21 Rain Galaviz PA-C [address] [place] [address] [place] [address] Physician Quality Compliance Consultant Dermatology 04/28/21 Tavia Wyatt MD [address] [place] [address] [address] [place] [address] Dermatology 07/14/21 Erica Farrell APRN MACHINE PAINT MIXER [address] [place] [address] Nurse Practitioner Cardiovascular Disease 09/09/21 Rich Barrett MD [address] [place] 962825 Physician Ophthalmology 01/21/22 Neil Kent MD [address] [place] [address] 032845 Dermatology 02/24/22 [facility] [address] [place] [address] 259356 Assigned [facility] Pharmacist 04/07/22 Livan Sharif MD [address] [place] [address] Cardiovascular Disease 05/14/22 Catherine Cm MD [address] [place] 268795 Cardiovascular Disease 07/21/22 Valery Veronica, PA-C [address] [place] [address] 374335 Physician Quality Compliance Consultant Dermatology 07/21/22 Brea Quinn APRN MACHINE PAINT MIXER 500 [place], [place] 900285 Nurse Practitioner Dermatology 09/21/22 Brea Quinn APRN MACHINE PAINT MIXER 6401 [place] [address] Assigned Surgical Provider 10/09/22 05/01/24 [place] [address] [place] [address] [address] Assigned Musculoskeletal Provider 10/09/22 05/01/24 Alfonso Renteria MD 5775 [facility] 200 [place], [place] 602326 Assigned Neuroscience Provider 04/02/23 09/29/24 Radha Lomeli APRN MACHINE PAINT MIXER [address] [place] [phone] [place] [address] Assigned Heart and Vascular Provider 05/28/23 [place] David OD [address] [facility] [place] [address] Ophthalmology 06/15/23 Pao Joseph, RN Personal Advocate & Liaison (PAL) Nurse 08/01/23 11/07/23 Esha Grimm PA-C [address] [place] [phone] Assigned PCP 07/16/23 Valery Veronica PA-C [address] [place] [address] Physician Quality Compliance Consultant Dermatology 09/19/23 Rey Tay MD [address] [place] [address] MD Gastroenterology 09/20/23 Rocky Zepeda DO [address] [place] [address] Physician Gastroenterology 09/20/23 Philip Dumont MD [address] [place] [address] Physician Ophthalmology 09/22/23 Meredith Carrera PA-C [address] [place] [address] Assigned Gastroenterology Provider 11/01/23 Neil Kent MD [address] [address] Dermatology 11/02/23 [place] [address] [place] [address] Neurological Surgery 12/26/23 Audrey Waite PA-C [address] [place] [address] 819025 Physician Quality Compliance Consultant Dermatology 02/28/24 Valery Veronica PA-C [address]751 [address] [place] [address] Physician Quality Compliance Consultant Dermatology 04/10/24 Herminia Hatch MD [facility] [place], [place] 99983125 Assigned Rheumatology Provider 07/02/24 Jel[address] David [place] [address] [facility] [place] [address] Ophthalmology 08/30/24 [place] [address] [place] [address] Assigned Neuroscience Provider 09/30/24 Maru Man PA-C [address] [place] [address] Physician Quality Compliance Consultant Dermatology 10/03/24 Maru Man PA-C [address] [place] [address] Physician Quality Compliance Consultant Dermatology 10/22/24 J[address] David OD [address] [facility] [place] [address] Assigned Surgical Provider 10/31/24 documented as of this encounter
--- OUTSIDE RECORDS SUMMARY | 2024-11-21 04:17 | XMS_ITS | Encounter Summary ---
Author Organization [place] Address [address] [place] [address] Care Team Providers Care Labor Gang Supervisor Name Role Phone Diana Desir [facility] Unavailable Rain Galaviz PA-C Unavailable Tavia Wyatt MD Unavailable Erica Farrell APRN SOFTWARE REVERSE ENGINEER Unavailable Rich Barrett MD Unavailable [phone] Neil Kent MD Unavailable Diana Desir [facility] Unavailable Livan Sharif MD Unavailable Catherine Cm MD Unavailable + Valery Veronica PA-C Unavailable [phone] Brea Quinn FISHERIES DIRECTOR SOFTWARE REVERSE ENGINEER Unavailable Brea Quinn FISHERIES DIRECTOR SOFTWARE REVERSE ENGINEER Unavailable [phone] Jose Francisco Johnson MD Unavailable Alfonso Renteria MD Unavailable [phone] Esha Grimm PA-C Primary Care Provider [phone] Radha Lomeli APRN SOFTWARE REVERSE ENGINEER Unavailable Jelena David OD Unavailable [phone] Esha Grimm PA-C Unavailable [phone] JeremíasValery damon PA-C Unavailable Rey Tay MD Unavailable Rocky Zepeda DO Unavailable Philip Dumont MD Unavailable Meredith Carrera PA-C Unavailable [phone] Neil Kent MD Unavailable Juan Pablo Emmanuel MD Unavailable Audrey Waite PA-C Unavailable [phone] JeremíasValery damon PA-C Unavailable Herminia Hatch MD Unavailable Jelena David OD Unavailable Juan Pablo Emmanuel MD Unavailable Maru Man PA-C Unavailable Maru Man PA-C Unavailable Jelena David OD Unavailable Encounter Details Date Type Department Care Team (Late st Contact Info) Description 11/21/2023 [facility] Medical Advice [facility] Gastroenterology Clinic [address] [place] [address] Sofia [place]ar Social History Tobacco [...] 10/25/2023 [facility] - Occupational Stress Questionnaire Answer Date [...] exercise at this level? 30 min 03/10/2023 [place] Depression Scale Answer Date Recorded [place] Depression Score 5 01/14/2021 Last EPDS Self [...] CDT Legal Sex Female 4:13 AM MANAGER BUSINESS Gender Identity Female 03/02/2021 5:45 PM CDT Sexual Orientation Straight 02/28/2020 12 :51 AM CDT documented as of this encounter Plan of Treatment Upcoming Encounters Date Type Department Care Team (Late st Contact Info) Description 11/21/2024 7:00 AM CDT Office Visit [facility] [address] [address] Maru Man PA-C [address] [address] 12/20/2024 2:30 PM CDT Office Visit [address] [place] [phone] Esha Grimm PA-C [address] [place] [address] 04/16/2025 11:00 AM CDT Virtual Visit [facility] Gastroenterology Clinic [address] 4th [place] [phone] Meredith Carrera PA-C [address] [place] [address] 405495 documented as of this encounter Visit Diagnoses [...] Score: 4 06/20/20 23 8:40 AM MANAGER BUSINESS documented as of this encounter Care Teams Labor Gang Supervisor Relationship Specialty Start Date End Date Esha Grimm PA-C [address] [place] [address] PCP - General Family Medicine 05/04/23 Diana Desir, [facility] [address] [place], [place] [phone] Pharmacist Pharmacist 04/17/21 Rain Galaviz PA-C [address] [place] [address] DR AR[address] [facility] [phone] Physician Enterprise Security Architect Dermatology 04/28/21 Tavia Wyatt MD [address] [place] [address] DR [address] [facility][note 2] [place] [id number] Dermatology 07/14/21 Erica Farrell APRN SOFTWARE REVERSE ENGINEER [address] [place] 432[address] Nurse Practitioner Cardiovascular Disease 09/09/21 Rich Barrett MD [address] [place] 883325 Physician Ophthalmology 01/21/22 Neil Kent MD [address] [place] [address] 454975 Dermatology 02/24/22 Diana Desir, [facility] 3033 [place], [place] 343296 Assigned [place] Pharmacist 04/07/22 Livan Sharif MD [address] [place] 418965 Cardiovascular Disease 05/14/22 Catherine Cm MD [address] [place] 148305 Cardiovascular Disease 07/21/22 Valery Veronica, PA-C [address] [place] [address] 952595 Physician Enterprise Security Architect Dermatology 07/21/22 Brea Quinn APRN SOFTWARE REVERSE ENGINEER 500 [place] [address] Nurse Practitioner Dermatology 09/21/22 Brea Quinn APRN SOFTWARE REVERSE ENGINEER 6401 [place] [address] Assigned Surgical Provider 10/09/22 05/01/24 [place] [address] [place] [address] [address] Assigned Musculoskeletal Provider 10/09/22 05/01/24 Alfonso Renteria MD 5775 [facility] 200 [place], [place] 888156 Assigned Neuroscience Provider 04/02/23 09/29/24 Radha Lomeli APRN SOFTWARE REVERSE ENGINEER [address] [place] [address] 1377300 [place] [address] Assigned Heart and Vascular Provider 05/28/23 [place] David [place] [address] [facility] [place] [address] Ophthalmology 06/15/23 Esha Grimm PA-C [address] [place] [phone] Assigned PCP 07/16/23 Valery Veronica PA-C 909 [place], [place] 077485 Physician Enterprise Security Architect Dermatology 09/19/23 Rey Tay MD [address] [place] [address] 458645 MD Gastroenterology 09/20/23 Rocky Zepeda DO [address] [place] [address] Physician Gastroenterology 09/20/23 Philip Dumont MD [address] [place] [address] 422035 Physician Ophthalmology 09/22/23 Meredith Carrera PA-C [address] [place] [address] 108945 Assigned Gastroenterology Provider 11/01/23 Neil Kent MD [address] [place] [address] Dermatology 11/02/23 [place] [address] [address] [facility] [place] [address] Neurological Surgery 12/26/23 Audrey Waite PA-C [address] [place] [address] Physician Enterprise Security Architect Dermatology 02/28/24 Valery Veronica PA-C 159097 [place] [address] Physician Enterprise Security Architect Dermatology 04/10/24 Herminia Hatch MD [address] [place] [address] Assigned Rheumatology Provider 07/02/24 Jelena David OD [address] [place] [address] [place] [address] Ophthalmology 08/30/24 [place] [address] [place] [address] Assigned Neuroscience Provider 09/30/24 Maru Man PA-C [address] [place] [address] Physician Enterprise Security Architect Dermatology 10/03/24 Maru Man PA-C [address] [place] [address] Physician Enterprise Security Architect Dermatology 10/22/24 Jelena David OD [address] [place] [address] [place] [address] Assigned Surgical Provider 10/31/24 documented as of this encounter
--- OUTSIDE RECORDS SUMMARY | 2024-11-21 04:18 | XMS_ITS | Encounter Summary ---
Author Organization [facility] Address [address] [place] [address] Care Team Providers Care Web Content Specialist Name Role Phone Lita Oseguera Unavailable Unavailable Rakesh Cid PA-C Unavailable Marija Edgar APRN STRAIGHT PIN MAKING MACHINE OPERATOR Primary Care Provider + Chanelle Mccann APRN CN Unavailab le Lesley Guillermo CHW Unavailable [phone] Kyara De La Fuente RN Unavailable [phone] Marija Edgar APRN [facility] Unavailable Mynor Broussard MD Unavailable [phone] Keisha Dotson MD Unavailable [phone] Mary Mejia Unavailable Unavailable Stacey Briones BIRD RAISER Unavailable [phone] Lesley Guillermo CHW Unavailable [phone] Mary Mejia Unavailable Unavailable Lita Oseguera Unavailable Unavailable Galo Burrell MD Unavailable Unavailable Cristina Wood Unavailable Lesley Guillermo CHW Unavailable [phone] Meredith Bedoya Unavailable Unavailable Cristina Wood Unavailable Diana Desir [facility] Unavailable [phone] Rain Galaviz PA-C Unavailable Summer Lara MD Unavailable [phone] Summer Lara MD Unavailable [phone] Summer Lara MD Unavailable [phone] Tavia Wyatt MD Unavailable [phone] Johnny Murillo MD Unavailable [phone] Erica Farrell APRN STRAIGHT PIN MAKING MACHINE OPERATOR Unavailable Teresita Bean [facility] Unavailable Tavia Wyatt MD Unavailable [phone] Diana Desir [facility] Unavailable [phone] Rich Barrett MD Unavailable Neil Kent MD Unavailable Roney StoryM Unavailable Erica Farrell APRN STRAIGHT PIN MAKING MACHINE OPERATOR Unavailable + Diana Desir [facility] Unavailable [phone] Jelena David OD Unavailable Galo Burrell MD Unavailable Unavailable Livan Sharif MD Unavailable Livan Sharif MD Unavailable + Catherine Cm MD Unavailable + Valery Veronica PA-C Unavailable [phone] Catherine Cm MD Unavailable + Johnny Murillo MD Unavailable [phone] Brea Quinn APRN STRAIGHT PIN MAKING MACHINE OPERATOR Unavailable [phone] [place], Brea P DARKROOM TECHNICIAN STRAIGHT PIN MAKING MACHINE OPERATOR Unavailable [phone] Jose Francisco Johnson MD Unavailable Livan Sharif MD Unavailable Catherine Cm MD Unavailable + Sydnie Martinez RN Unavailable Unavailable Alfonso Renteria MD Unavailable Esha Grimm PA-C Primary Care Provider Cheng Todd PA-C Unavailable Armani Radha Sia DARKROOM TECHNICIAN STRAIGHT PIN MAKING MACHINE OPERATOR Unavailable [phone] Jelena David OD Unavailable [phone] Pao Joseph RN Unavailable Unavailable Esha Grimm PA-C Unavailable [phone] Valery Veronica PA-C Unavailable Rey Tay MD Unavailable Rocky Zepeda DO Unavailable Philip Dumont MD Unavailable [phone] Meredith Carrera PA-C Unavailable [phone] Neil Kent MD Unavailable Juan Pablo Emmanuel MD Unavailable Audrey Waite PA-C Unavailable Valery Veronica PA-C Unavailable Herminia Hatch MD Unavailable Jelena David OD Unavailable [phone] Juan Pablo Emmanuel MD Unavailable Maru Man PA-C Unavailable [phone] Maru Man PA-C Unavailable [phone] Jelena David OD Unavailable Encounter Details Date Type Department Care Team (Late st Contact Info) Description 05/16/2020 MyC Medical Advice [address] [phone] Jerome Ferrell RN Social History Tobacco Use [...] PM CDT Legal Sex Female 4:13 AM CARTON COUNTER FEEDER Gender Identity Female 03/02/2021 5:45 PM CDT Sexual Orientation Straight 02/28/2020 12 :51 AM CDT COVID-19 Exposure Response Date Recorded In the last month, have you been in contact with someone who was confirmed or suspected to have Coronavirus / COVID-19? No / Unsure 05/12/2020 9:03 AM CARTON COUNTER FEEDER documented as of this encounter Plan of Treatment Upcoming Encounters Date Type Department Care Team (Late st Contact Info) Description 11/21/2024 7:00 AM CDT Office Visit [facility] [address] [phone] Maru Man PA-C [address] [place] [address] 12/20/2024 2:30 PM CDT Office Visit [facility] [phone] [place] [phone] Esha Grimm PA-C [id number] [place] [phone] 04/16/2025 11:00 AM CDT Virtual Visit [facility] [address] [phone] Meredith Carrera PA-C [address] [place] [address] documented as of this encounter Visit Diagnoses Not on filedocumented in this encounter Additional Health Concerns Infection Onset Date Last Indicated Resolved Time Rule Out COVID-19 07/30/2020 07/30/2020 07/30/2020 7:11 PM CARTON COUNTER FEEDER Rule Out COVID-19 08/30/2020 08/30/2020 08/30/2020 5:05 PM CARTON COUNTER FEEDER Rule Out COVID-19 09/24/2020 09/24/2020 09/24/2020 9:24 AM CDT Rule Out COVID-19 11/05/2020 11/05/2020 11/06/2020 1:09 PM CDT Rule Out COVID-19 05/11/2021 05/11/2021 05/13/2021 10:18 AM CDT Rule Out COVID-19 07/13/2021 07/13/2021 07/14/2021 3:04 PM CARTON COUNTER FEEDER Rule Out COVID-19 07/18/2021 07/18/2021 07/20/2021 1:56 PM CARTON COUNTER FEEDER COVID-19 07/18/2021 07/18/2021 08/08/2021 11:3 9 PM CARTON COUNTER FEEDER Rule Out COVID-19 12/18/2021 12/18/2021 12/19/2021 11:34 AM CDT Rule Out COVID-19 02/24/2022 02/24/2022 02/25/2022 1:08 PM CDT Rule Out COVID-19 04/26/2022 04/26/2022 04/26/2022 6:47 AM CDT Rule Out COVID-19 05/17/2022 05/17/2022 05/17/2022 10:20 PM CARTON COUNTER FEEDER Rule Out COVID-19 06/09/2022 06/09/2022 06/09/2022 9:35 AM CARTON COUNTER FEEDER COVID-19 06/09/2022 06/09/2022 06/30/2022 11:4 1 PM CARTON COUNTER FEEDER Rule Out COVID-19 11/10/2022 11/10/2022 11/11/2022 [...] as of this encounter Care Teams Web Content Specialist Relationship Specialty Start Date End Date Marija Edgar APRN STRAIGHT PIN MAKING MACHINE OPERATOR [address] [place] [address] PCP - General Nurse Practitioner 04/30/20 04/14/23 Esha Grimm PA-C [address] [place] [phone] PCP - General Family Medicine 05/04/23 Lita Oseguera Personal Advocate & Liaison (PAL) 02/28/20 03/27/23 Rakesh Cid PA-C [address] [place] [address] Assigned PCP 03/02/20 06/07/20 Chanelle Mccann APRN CNM [address] [address] Assigned OBGYN Provider 05/02/2005/09 Lesley Guillermo, CHW Community Health Worker 05/30/2005/12 Kyara De La Fuente, RN Specialty Flame Channeler Neurology 06/04/20 03/05/21 Marija Edgar APRN CNP [address] [place] [address] Assigned PCP 06/08/20 04/29/23 Mynor Broussard MD [address] [place] [phone] Assigned Surgical Provider 06/01/20 11/28/21 Keisha Dotson MD [address] [place] [address] Assigned Neuroscience Provider 06/04/20 04/01/23 Mary Mejia Financial Resource Worker 08/07/20 08/21/20 Stacey Briones, [facility] Lead Flame Channeler Primary Care - CC 08/11/2012/30 Lesley Guillermo, W Community Health Worker 08/11/2010/01 Mary Meija Financial Resource Worker 09/02/20 10/06/20 Lita Oseguera Personal Advocate & Liaison (PAL) Family Medicine 09/10/20 09/21/20 Galo Burrell MD Assigned Heart and Vascular Provider 10/05/20 04/02/22 Cristina Wood Financial Resource Worker 10/07/20 10/14/20 Lesley Guillermo, W Community Health Worker 10/23/2012/30 Meredith Bedoya Financial Resource Worker 10/23/20 11/23/20 Cristina Wood Financial Resource Worker 02/09/21 02/09/21 Diana Desir, [facility] [address] [facility] [place] [address] Pharmacist Pharmacist 04/17/21 Rain Galaviz PA-C [address] [place] [address] [place] [address] Physician Acid Cutter Dermatology 04/28/21 Summer Lara MD [address] [place] [address] Assigned OBGYN Provider 05/10/2105/23 Summer Lara MD [address] [place], [place] [address] Assigned OBGYN Provider 05/31/21 Summer Lara MD [address] [place], [place] [address] Assigned OBGYN Provider 05/24/2105/30 Tavia Wyatt MD [address] [place], [place] [address] Dermatology 07/14/21 Johnny Murillo MD [address] [place] [address] Assigned Musculoskeletal Provider 08/30/21 03/17/22 Erica Farrell APRN STRAIGHT PIN MAKING MACHINE OPERATOR [address] [facility] [address] [place] [address] Nurse Practitioner Cardiovascular Disease 09/09/21 Teresita Bean [facility] [address] [place] [address] Pharmacist Pharmacist 09/24/21 09/29/21 Tavia Wyatt MD [address] [place] [address] Assigned Surgical Provider 11/29/21 05/07/22 Diana Desir, [facility] [address] [place] [address] Assigned MTM Pharmacist 01/02/22 Rich Barrett MD [address] [place] [address] Physician Ophthalmology 01/21/22 Neil Kent MD [address] [place] [address] Dermatology 02/24/22 Roney Story DPM [address] [facility] [address] [place] [address] Assigned Musculoskeletal Provider 03/20/22 08/13/22 Erica Farrell APRN STRAIGHT PIN MAKING MACHINE OPERATOR [address] [place] [address] Assigned Heart and Vascular Provider 04/03/22 04/16/22 Diana Desir, [facility] [address] [place] [address] Assigned MTM Pharmacist 04/07/22 [place] David [place] [address] [facility] [place] [address] Assigned Surgical Provider 05/08/22 10/08/22 Galo Burrell MD Assigned Heart and Vascular Provider 04/17/22 06/11/22 Livan Sharif MD [address] [place] [phone] Cardiovascular Disease 05/14/22 Livan Sharif MD [address] [place] [address]83[address] Assigned Heart and Vascular Provider 06/12/22 07/23/22 Catherine Cm MD [address] [place] [address] Cardiovascular Disease 07/21/22 Valery Veronica, PA-C [address] [place], [place] [phone] Physician Acid Cutter Dermatology 07/21/22 Catherine Cm MD [address] [place] 750935 Assigned Heart and Vascular Provider 07/24/22 11/05/22 Johnny Murillo MD [address] [place] [address]14 Assigned Musculoskeletal Provider 08/14/22 10/08/22 Brea Quinn APRN STRAIGHT PIN MAKING MACHINE OPERATOR [address] [place] [address] Nurse Practitioner Dermatology 09/21/22 Brea Quinn APRN STRAIGHT PIN MAKING MACHINE OPERATOR [address] [place] [address] Assigned Surgical Provider 10/09/22 05/01/24 [place] [address] [facility] [address] [place] [address] Assigned Musculoskeletal Provider 10/09/22 05/01/24 Livan Sharif MD [address] [facility] [address] [place] [address] Assigned Heart and Vascular Provider 11/06/22 11/12/22 Catherine Cm MD [address] [facility] [address] [place] [address] Assigned Heart and Vascular Provider 11/13/22 05/27/23 Sydnie Martinez RN Personal Advocate & Liaison (PAL) Family Medicine 03/28/23 07/31/23 Alfonso Renteria MD [address] [facility] [address] [place], [place] [address] Assigned Neuroscience Provider 04/02/23 09/29/24 Cheng Todd PA-C [address] [place] [address] [phone] Assigned PCP 04/30/23 07/15/23 Radha Lomeli APRN STRAIGHT PIN MAKING MACHINE OPERATOR [address] [facility] [address] [place] [address] Assigned Heart and Vascular Provider 05/28/23 [place] David [place] [address] [facility] [place] [place] [address] MD Ophthalmology 06/15/23 Pao Joseph, VJ Personal Advocate & Liaison (PAL) Nurse 08/01/23 11/07/23 Esha Grimm PA-C [address] [place] [phone] Assigned PCP 07/16/23 Valery Veronica PA-C [address] [place] [address] [phone] Physician Acid Cutter Dermatology 09/19/23 Rey Tay MD [address] [place] [address] [phone] Gastroenterology 09/20/23 Rocky Zepeda DO [address] [place] [address] 613635 Physician Gastroenterology 09/20/23 Philip Dumont MD [address] [place] [address] [phone] Physician Ophthalmology 09/22/23 Meredith Carrera PA-C [address] [place] [address] [phone] Assigned Gastroenterology Provider 11/01/23 Neil Kent MD [address] [place] [address] MD Dermatology 11/02/23 [place] [address] [place] [address] Neurological Surgery 12/26/23 Audrey Waite PA-C [address] [place] [address] Physician Acid Cutter Dermatology 02/28/24 Valery Veronica PA-C 674039 [address] [address] Physician Acid Cutter Dermatology 04/10/24 Herminia Hatch MD [address] [place] [address] [phone] Assigned Rheumatology Provider 07/02/24 Jelena David OD [address] [place] [address] [place] [address] Ophthalmology 08/30/24 [place] [address] [place] [address] Assigned Neuroscience Provider 09/30/24 Maru Man PA-C [address] [place] [address] Physician Acid Cutter Dermatology 10/03/24 Maru Man PA-C [address] [place] [address] Physician Acid Cutter Dermatology 10/22/24 [place] David [place] [address] [facility] [place] [address] Assigned Surgical Provider 10/31/24 documented as of this encounter
--- OUTSIDE RECORDS SUMMARY | 2024-11-21 04:18 | XMS_ITS | Encounter Summary ---
Author Organization [facility] Address [address] [place] [address] Care Team Providers Care Pure Culture Operator Name Role Phone Rakesh Cid PA-C Primary Care Provider [phone] Lita Oseguera Unavailable Unavailable Rakesh Cid PA-C Unavailable [phone] Lita Oseguera Unavailable Unavailable Marija Edgar APRN MOLD MAINTENANCE TECHNICIAN Primary Care Provider + Chanelle Mccann APRN CNM Unavailab le Lesley Guillermo Unavailable [phone] Kyara De La Fuente RN Unavailable Marija Edgar APRN MOLD MAINTENANCE TECHNICIAN Unavailable Mynor Broussard MD Unavailable [phone] Keisha Dotson MD Unavailable [phone] Mary Mejia Unavailable Unavailable Stacey Briones CRYSTALIZER TENDER Unavailable [phone] Lesley Guillermo Unavailable [phone] Mary Mejia Unavailable Unavailable Lita Oseguera Unavailable Unavailable Galo Burrell MD Unavailable Unavailable Cristina Wood Unavailable Lesley Guillermo Unavailable Meredith Bedoya Unavailable Unavailable Cristina Wood Unavailable Diana Desir [facility] Unavailable [phone] Rain Galaviz PA-C Unavailable Summer Lara MD Unavailable [phone] Summer Lara MD Unavailable [phone] Summer Lara MD Unavailable [phone] Tavia Wyatt MD Unavailable [phone] Johnny Murillo MD Unavailable [phone] Erica Farrell APRN MOLD MAINTENANCE TECHNICIAN Unavailable Teresita Bean [facility] Unavailable Tavia Wyatt MD Unavailable [phone] Diana Desir [facility] Unavailable [phone] Rich Barrett MD Unavailable Neil Kent MD Unavailable Roney Story DPM Unavailable Erica Farrell APRN MOLD MAINTENANCE TECHNICIAN Unavailable Diana Desir [facility] Unavailable [phone] Jelena David OD Unavailable Galo Burrell MD Unavailable Unavailable Livan Sharif MD Unavailable Livan Sharif MD Unavailable + Catherine Cm MD Unavailable + Valery Veronica PA-C Unavailable [phone] Catherine Cm MD Unavailable + Johnny Murillo MD Unavailable [phone] Brea Quinn APRN MOLD MAINTENANCE TECHNICIAN Unavailable [phone] Brea Quinn TILE SPRAYER MOLD MAINTENANCE TECHNICIAN Unavailable [phone] Jose Francisco Johnson MD Unavailable Livan Sharif MD Unavailable Catherine Cm MD Unavailable + Sydnie Martinez RN Unavailable Unavailable Alfonso Renteria MD Unavailable [phone] Esha Grimm PA-C Primary Care Provider Cheng Todd PA-C Unavailable [phone] Radha Lomeli TILE SPRAYER MOLD MAINTENANCE TECHNICIAN Unavailable Jelena David OD Unavailable [phone] Pao Joseph RN Unavailable Unavailable Esha Grimm PA-C Unavailable [phone] Valery Veronica PA-C Unavailable Rey Tay [...] Contact Info) Description 04/25/2020 MyC Medical Advice [facility] [address] [place] [address] [phone] Rakesh Cid PA-C [address] [place] [address] Social History Tobacco Use Types Packs/Day Years [...] PM CDT Legal Sex Female 4:13 AM FRETTED INSTRUMENTS INSPECTOR Gender Identity Female 03/02/2021 5:45 PM [...] Description 11/21/2024 7:00 AM CDT Office Visit [address] [phone] Maru Man PA-C [address] [place] [address] 12/20/2024 2:30 PM CDT Office Visit [address] [phone] Esha Grimm PA-C [address] [place] [phone] 04/16/2025 11:00 AM CDT Virtual Visit [facility] [address] 4[address] [place] [phone] Meredith Carrera PA-C [address] [place] [address] documented as of this encounter Visit Diagnoses Not on filedocumented in this encounter Additional Health Concerns Infection Onset Date Last Indicated Resolved Time Rule Out COVID-19 07/30/2020 07/30/2020 07/30/2020 7:11 PM FRETTED INSTRUMENTS INSPECTOR Rule Out COVID-19 08/30/2020 08/30/2020 08/30/2020 5:05 PM FRETTED INSTRUMENTS INSPECTOR Rule Out COVID-19 09/24/2020 09/24/2020 09/24/2020 9:24 AM CDT Rule Out COVID-19 11/05/2020 11/05/2020 11/06/2020 1:09 PM CDT Rule Out COVID-19 05/11/2021 05/11/2021 05/13/2021 10:18 AM CDT Rule Out COVID-19 07/13/2021 07/13/2021 07/14/2021 3:04 PM FRETTED INSTRUMENTS INSPECTOR Rule Out COVID-19 07/18/2021 07/18/2021 07/20/2021 1:56 PM FRETTED INSTRUMENTS INSPECTOR COVID-19 07/18/2021 07/18/2021 08/08/2021 11:3 9 PM FRETTED INSTRUMENTS INSPECTOR Rule Out COVID-19 12/18/2021 12/18/2021 12/19/2021 11:34 AM CDT Rule Out COVID-19 02/24/2022 02/24/2022 02/25/2022 1:08 PM CDT Rule Out COVID-19 04/26/2022 04/26/2022 04/26/2022 6:47 AM CDT Rule Out COVID-19 05/17/2022 05/17/2022 05/17/2022 10:20 PM FRETTED INSTRUMENTS INSPECTOR Rule Out COVID-19 06/09/2022 06/09/2022 06/09/2022 9:35 AM FRETTED INSTRUMENTS INSPECTOR COVID-19 06/09/2022 06/09/2022 06/30/2022 11:4 1 PM FRETTED INSTRUMENTS INSPECTOR Rule Out COVID-19 11/10/2022 11/10/2022 11/11/2022 [...] documented as of this encounter Care Teams Pure Culture Operator Relationship Specialty Start Date End Date Rakesh Cid PA-C PCP - General Physician Laborer [employer] - Medical 05/14/19 04/29/20 Marija Edgar APRN CNP [id number] [place] [address] PCP - General Nurse Practitioner 04/30/20 04/14/23 Esha Grimm PA-C [address] [place] [phone] PCP - General Family Medicine 05/04/23 Lita Oseguera Personal Advocate & Liaison (PAL) 02/28/20 03/27/23 Rakesh Cid PA-C [address] [place] [address] Assigned PCP 03/02/20 06/07/20 Lita Oseguera Personal Advocate & Liaison (PAL) 04/07/20 04/29/20 Chanelle Mccann APRN CNM [address] [facility] [address] [place] [address] Assigned OBGYN Provider 05/02/2005/09 Lesley Guillermo, CHW Community Health Worker 05/30/2005/12 Kyara De La Fuente, RN Specialty Steward/Stewardess Banquet Neurology 06/04/20 03/05/21 Marija Edgar APRN MOLD MAINTENANCE TECHNICIAN [address] [place] [address] Assigned PCP 06/08/20 04/29/23 Mynor Broussard MD [address] [facility] [address] [place] [address] Assigned Surgical Provider 06/01/20 11/28/21 Keisha Dotson MD [address] [place] [address] Assigned Neuroscience Provider 06/04/20 04/01/23 Mary Mejia Financial Resource Worker 08/07/20 08/21/20 Stacey Briones, CRYSTALIZER TENDER Lead Steward/Stewardess Banquet Primary Care - CC 08/11/2012/30 Lesley Giullermo CHW Community Health Worker 08/11/2010/01 Mary Mejia Financial Resource Worker 09/02/20 10/06/20 Lita Oseguera Personal Advocate & Liaison (PAL) Family Medicine 09/10/20 09/21/20 Galo Burrell MD Assigned Heart and Vascular Provider 10/05/20 04/02/22 Cristina Wood Financial Resource Worker 10/07/20 10/14/20 Lesley Guillermo, [facility] Community Health Worker 10/23/2012/30 Meredith Bedoya Financial Resource Worker 10/23/20 11/23/20 Cristina Wood Financial Resource Worker 02/09/21 02/09/21 Diana Desir, [facility] [address] [place], [place] [address] Pharmacist Pharmacist 04/17/21 Rain Galaviz PA-C [address] [place] [address] [address] [place], [place] [phone] Physician Laborer [employer] Dermatology 04/28/21 Summer Lara MD [facility] [place], [place] [address] Assigned OBGYN Provider 05/10/2105/23 Summer Lara MD [address] [place] [address] [id number] Assigned OBGYN Provider 05/31/21 2 Summer Lara MD [address] [place] [address] Assigned OBGYN Provider 05/24/2105/30 Tavia Wyatt MD [address] [place] [address] Dermatology 07/14/21 Johnny Murillo MD [address] [place] [address] Assigned Musculoskeletal Provider 08/30/21 03/17/22 Erica Farrell APRN MOLD MAINTENANCE TECHNICIAN [address] [facility] [address] [place] [address] Nurse Practitioner Cardiovascular Disease 09/09/21 [facility] [address] [facility] [address] [place], [place] [phone] Pharmacist Pharmacist 09/24/21 09/29/21 Tavia Wyatt MD [address] [place] [address] Assigned Surgical Provider 11/29/21 05/07/22 [facility] [address] [place] [address] Assigned MTM Pharmacist 01/02/22 Rich Barrett MD [address] [place] [address] Physician Ophthalmology 01/21/22 Neil Kent MD [address] [place] [address] Dermatology 02/24/22 Roney Story DPM [address] [facility] [address] [place] [address] Assigned Musculoskeletal Provider 03/20/22 08/13/22 Erica Farrell APRN MOLD MAINTENANCE TECHNICIAN [address] [place] [address] Assigned Heart and Vascular Provider 04/03/22 04/16/22 Diana Desir, [facility] [address] [place], [place] 0[address] Assigned MTM Pharmacist 04/07/22 Jelena David OD [address] [facility] [place] [address] Assigned Surgical Provider 05/08/22 10/08/22 Galo Burrell MD Assigned Heart and Vascular Provider 04/17/22 06/11/22 Livan Sharif MD [address] [facility] [address] [address] [place] [address] Cardiovascular Disease 05/14/22 Livan Sharif MD [address] [place] [address] Assigned Heart and Vascular Provider 06/12/22 07/23/22 Catherine Cm MD [address] [facility] [address] [place] 484305 Cardiovascular Disease 07/21/22 Valery Veronica, PA-C [address] [place] [address] Physician Laborer [employer] Dermatology 07/21/22 Catherine Cm MD [address] [facility] S [email or web address]00 [place] [address] Assigned Heart and Vascular Provider 07/24/22 11/05/22 Johnny Murillo MD [address] [place] [address] Assigned Musculoskeletal Provider 08/14/22 10/08/22 Brea Quinn APRN MOLD MAINTENANCE TECHNICIAN [address] [place] [address] [phone] Nurse Practitioner Dermatology 09/21/22 Brea Quinn APRN MOLD MAINTENANCE TECHNICIAN [address] [place] [address] [place] 700472 Assigned Surgical Provider 10/09/22 05/01/24 [place] [address] [address] Assigned Musculoskeletal Provider 10/09/22 05/01/24 Livan Sharif MD [address] [facility] [address] [place] [address] Assigned Heart and Vascular Provider 11/06/22 11/12/22 Catherine Cm MD [address] [facility] S [facility] [[email or web address]][address] [place] 720675 Assigned Heart and Vascular Provider 11/13/22 05/27/23 Sydnie Martinez, VJ Personal Advocate & Liaison (PAL) Family Medicine 03/28/23 07/31/23 Alfonso Renteria MD [address] [facility] [address] [place] [address] Assigned Neuroscience Provider 04/02/23 09/29/24 Cheng Todd PA-C [address] [place] [address] Assigned PCP 04/30/23 07/15/23 Radha Lomeli APRN MOLD MAINTENANCE TECHNICIAN [address] [facility] [address] [place] [address] Assigned Heart and Vascular Provider 05/28/23 Jelena David OD [address] [facility] [address] Ophthalmology 06/15/23 Pao Joseph, VJ Personal Advocate & Liaison (PAL) Nurse 08/01/23 11/07/23 Esha Grimm PA-C [address] [place] [phone] Assigned PCP 07/16/23 Valery Veronica PA-C [address] [place], [place] 9[address] Physician Laborer [employer] Dermatology 09/19/23 Rey Tay MD [address] [place] [address] [phone] Gastroenterology 09/20/23 Rocky Zepeda DO [address] [place] [address] Physician Gastroenterology 09/20/23 Philip Dumont MD [address] [place] [address] Physician Ophthalmology 09/22/23 Meredith Carrera PA-C [address] [place] [address] Assigned Gastroenterology Provider 11/01/23 Neil Kent MD [address] [place] [address] MD Dermatology 11/02/23 Juan Pablo Emmanuel [place] [address] [place] [address] [facility] [place] [address] Neurological Surgery 12/26/23 Audrey Waite PA-C [address] [place] [address] Physician [employer] Dermatology 02/28/24 Valery Veronica PA-C 271977 [address], [place] [address] Physician Laborer [employer] Dermatology 04/10/24 Herminia Hatch MD [address] [place] [address] [id number] Assigned Rheumatology Provider 07/02/24 Jelena David OD [address] [place] [address] [place] [address] Ophthalmology 08/30/24 [place] [address] [address] [address] [address] Assigned Neuroscience Provider 09/30/24 Maru Man PA-C [address] [place] [address] Physician Lab[employer] Dermatology 10/03/24 Maru Man PA-C [address] [place] [address] Physician Laborer [employer] Dermatology 10/22/24 Jelena David OD [address] [facility] [place] [address] Assigned Surgical Provider 10/31/24 documented as of this encounter
--- OUTSIDE RECORDS SUMMARY | 2024-11-21 04:18 | XMS_ITS | Encounter Summary ---
Author Organization [facility] Address [address] [place] [address] Care Team Providers Care Crop Picker Name Role Phone Lita Oseguera Unavailable Unavailable Marija Edgar APRN CENTRAL CONTROL ROOM OPERATOR Primary Care Provider + Chanelle Mccann APRN CNM Unavailab le Kyara De La Fuente RN Unavailable [phone] Marija Edgar APRN CENTRAL CONTROL ROOM OPERATOR Unavailable [phone] Mynor Broussard MD Unavailable Keisha Dotson MD Unavailable Mary Mejia Unavailable Unavailable Stacey Briones EMPLOYMENT ASSISTANT Unavailable Lesley Guillermo CHW Unavailable Mary Mejia Unavailable Unavailable Lita Oseguera Unavailable Unavailable Galo Burrell MD Unavailable Unavailable Cristina Wood Unavailable Lesley Guillermo CHW Unavailable Meredith Bedoya Unavailable Unavailable Cristina Wood Unavailable Diana Desir [facility] Unavailable Ruhland, Rain Lena PA-C Unavailable Summer Lara MD Unavailable [phone] Summer Lara MD Unavailable [phone] Summer Lara MD Unavailable [phone] Tavia Wyatt MD Unavailable [phone] Johnny Murillo MD Unavailable [phone] Erica Farrell APRN CENTRAL CONTROL ROOM OPERATOR Unavailable VikasTeresita H Unavailable Tavia Wyatt MD Unavailable [phone] Diana Desir [facility] Unavailable [phone] Rich Barrett MD Unavailable [phone] Neil Kent MD Unavailable Roney Story [facility] Unavailable Erica Farrell APRN CENTRAL CONTROL ROOM OPERATOR Unavailable Diana Desir [facility] Unavailable [phone] Jelena David OD Unavailable Galo Burrell MD Unavailable Unavailable Livan Sharif MD Unavailable Livan Sharif MD Unavailable Catherine Cm MD Unavailable + Valery Veronica PA-C Unavailable [phone] Catherine Cm MD Unavailable + Johnny Murillo MD Unavailable [phone] Brea Quinn APRN CENTRAL CONTROL ROOM OPERATOR Unavailable [phone] Brea Quinn MEDICAL AND HEALTH SERVICES MANAGER CENTRAL CONTROL ROOM OPERATOR Unavailable [phone] Jose Francisco Johnson MD Unavailable Livan Sharif MD Unavailable Catherine Cm MD Unavailable + Sydnie Martinez RN Unavailable Unavailable Alfonso Renteria MD Unavailable [phone] Esha Grimm PA-C Primary Care Provider Cheng Todd PA-C Unavailable Radha Lomeli APRN CENTRAL CONTROL ROOM OPERATOR Unavailable Jelena David OD Unavailable Pao Joseph RN Unavailable Unavailable Esha Grimm PA-C Unavailable [phone] Valery Veronica PA-C Unavailable Rey Tay MD Unavailable Rocky Zepeda DO Unavailable Philip Dumont MD Unavailable Meredith Carrera PA-C Unavailable Neil Kent MD Unavailable Juan Pablo Emmanuel MD Unavailable Audrey Waite PA-C Unavailable Valery Veronica PA-C Unavailable Herminia Hatch MD Unavailable Jelena David OD Unavailable [phone] Juan Pablo Emmanuel MD Unavailable Maru Man PA-C Unavailable Maru Man PA-C Unavailable Jelena David OD Unavailable Encounter Details Date Type Department Care Team (Late st Contact Info) Description 07/10/2020 [facility] [address] [place] [phone] Mynor Broussard MD [address] [place] [id number] Social History Tobacco Use Types Packs/Day Years [...] PM CDT Legal Sex Female 4:13 AM MASTER BREWER Gender Identity Female 03/02/2021 5:45 PM CDT Sexual Orientation Straight 02/28/2020 12 :51 AM CDT COVID-19 Exposure Response Date Recorded In the last month, have you been in contact with someone who was confirmed or suspected to have Coronavirus / COVID-19? No / Unsure 06/24/2020 3:01 PM MASTER BREWER documented as of this encounter Plan of Treatment Upcoming Encounters Date Type Department Care Team (Late st Contact Info) Description 11/21/2024 7:00 AM CDT Office Visit [address] [phone] Maru Man PA-C [address] [place] [address] 12/20/2024 2:30 PM CDT Office Visit [facility] [address] [place] [address] Esha Grimm PA-C [id number] [place] [phone] 04/16/2025 11:00 AM CDT Virtual Visit [facility] Gastroenterology [address] [phone] Meredith Carrera PA-C [address] [place] [address] documented as of this encounter Visit Diagnoses Not on filedocumented in this encounter Additional Health Concerns Infection Onset Date Last Indicated Resolved Time Rule Out COVID-19 07/30/2020 07/30/2020 07/30/2020 7:11 PM MASTER BREWER Rule Out COVID-19 08/30/2020 08/30/2020 08/30/2020 5:05 PM MASTER BREWER Rule Out COVID-19 09/24/2020 09/24/2020 09/24/2020 9:24 AM CDT Rule Out COVID-19 11/05/2020 11/05/2020 11/06/2020 1:09 PM CDT Rule Out COVID-19 05/11/2021 05/11/2021 05/13/2021 10:18 AM CDT Rule Out COVID-19 07/13/2021 07/13/2021 07/14/2021 3:04 PM MASTER BREWER Rule Out COVID-19 07/18/2021 07/18/2021 07/20/2021 1:56 PM MASTER BREWER COVID-19 07/18/2021 07/18/2021 08/08/2021 11:3 9 PM MASTER BREWER Rule Out COVID-19 12/18/2021 12/18/2021 12/19/2021 11:34 AM CDT Rule Out COVID-19 02/24/2022 02/24/2022 02/25/2022 1:08 PM CDT Rule Out COVID-19 04/26/2022 04/26/2022 04/26/2022 6:47 AM CDT Rule Out COVID-19 05/17/2022 05/17/2022 05/17/2022 10:20 PM MASTER BREWER Rule Out COVID-19 06/09/2022 06/09/2022 06/09/2022 9:35 AM MASTER BREWER COVID-19 06/09/2022 06/09/2022 06/30/2022 11:4 1 PM MASTER BREWER Rule Out COVID-19 11/10/2022 11/10/2022 11/11/2022 12:17 PM CDT Rule Out COVID-19 03/07/2023 03/07/2023 03/07/2023 1:20 PM CDT Rule Out COVID-19 12/26/2023 12/26/2023 12/26/2023 9:50 AM CDT Rule Out COVID-19 04/09/2024 04/09/2024 04/10/2024 6:48 PM CDT Rule Out COVID-19 10/04/2024 10/04/2024 10/05/2024 9:42 AM CDT Rule Out COVID-19 11/20/2024 11/20/2024 Assessment Noted Time PHQ-9 Depression Total Score: 9 06/25/20 7:04 AM MASTER BREWER documented as of this encounter Care Teams Crop Picker Relationship Specialty Start Date End Date Marija Edgar APRN CENTRAL CONTROL ROOM OPERATOR PCP - General Nurse Practitioner 04/30/20 04/14/23 Esha Grimm PA-C [address] [place] [phone] PCP - General Family Medicine 05/04/23 Lita Oseguera Personal Advocate & Liaison (PAL) 02/28/20 03/27/23 Chanelle Mccann APRN CNM [address] [place] [address] Assigned OBGYN Provider 05/02/2005/09 Kyara De La Fuente, RN Specialty Barrel Endshaker Adjuster Neurology 06/04/20 03/05/21 Marija Edgar APRN CENTRAL CONTROL ROOM OPERATOR Assigned PCP 06/08/20 04/29/23 Mynor Broussard MD [address] [facility] [address] [place], [place] [phone] Assigned Surgical Provider 06/01/20 11/28/21 Keisha Dotson MD [address], [place] 263175 Assigned Neuroscience Provider 06/04/20 04/01/23 Mary Mejia Financial Resource Worker 08/07/20 08/21/20 Stacey Briones, [facility] Lead Barrel Endshaker Adjuster Primary Care - CC 08/11/2012/30 Lesley Guillermo, [facility] Community Health Worker 08/11/2010/01 Mary Mejia Financial Resource Worker 09/02/20 10/06/20 Lita Oseguera Personal Advocate & Liaison (PAL) Family Medicine 09/10/20 09/21/20 Galo Burrell MD Assigned Heart and Vascular Provider 10/05/20 04/02/22 Cristina Wood Financial Resource Worker 10/07/20 10/14/20 Lesley Guillermo, [facility] Community Health Worker 10/23/2012/30 Meredith Bedoya Financial Resource Worker 10/23/20 11/23/20 Cristina Wood Financial Resource Worker 02/09/21 02/09/21 Diana Desir, [facility] [address] [place] [address] Pharmacist Pharmacist 04/17/21 Rain Galaviz PA-C [address] [place] [address] [address] [facility] [place] [place] [address] Physician Paraprofessional Interpreter Dermatology 04/28/21 Summer Lara MD [address] [facility] [place] [address] Assigned OBGYN Provider 05/10/2105/23 Summer Lara MD [address] [place] [address] Assigned OBGYN Provider 05/31/21 2 Summer Lara MD [address] [facility] [place] [address] Assigned OBGYN Provider 05/24/2105/30 Tavia Wyatt MD [address] [facility] [place] [address] Dermatology 07/14/21 Johnny Murillo MD [address] [place] [address] Assigned Musculoskeletal Provider 08/30/21 03/17/22 Erica Farrell APRN CENTRAL CONTROL ROOM OPERATOR [address] [facility] [address] [place] [address] Nurse Practitioner Cardiovascular Disease 09/09/21 Teresita Bean, [facility] [address] [place] [address] Pharmacist Pharmacist 09/24/21 09/29/21 Tavia Wyatt MD [address] [place] [address] Assigned Surgical Provider 11/29/21 05/07/22 Diana Desir, [facility] [address] [place] [address] Assigned MTM Pharmacist 01/02/22 Rich Barrett MD [address] [place] [address] Physician Ophthalmology 01/21/22 Neil Kent MD [address] [place] [address] Dermatology 02/24/22 Roney Story DPM [address] [facility] [address] [place] [address] Assigned Musculoskeletal Provider 03/20/22 08/13/22 Erica Farrell APRN CENTRAL CONTROL ROOM OPERATOR [address] [place] [address] Assigned Heart and Vascular Provider 04/03/22 04/16/22 Diana Desir, [facility] [address] [place] [address] Assigned MTM Pharmacist 04/07/22 Jelena David OD [address] [place] [address] [place] [address] Assigned Surgical Provider 05/08/22 10/08/22 Galo Burrell MD Assigned Heart and Vascular Provider 04/17/22 06/11/22 Livan Sharif MD [address] [place] [id number] Cardiovascular Disease 05/14/22 Livan Sharif MD [address] [place] [phone] Assigned Heart and Vascular Provider 06/12/22 07/23/22 Catherine Cm MD [address] [facility] [id number] Cardiovascular Disease 07/21/22 Valery Veronica PA-C [address] [place] [address] [phone] Physician Paraprofessional Interpreter Dermatology 07/21/22 Catherine Cm MD [address] [place] [address] [id number] Assigned Heart and Vascular Provider 07/24/22 11/05/22 Johnny Murillo MD [address] [place] [address] [phone] Assigned Musculoskeletal Provider 08/14/22 10/08/22 Brea Quinn APRN CENTRAL CONTROL ROOM OPERATOR [address] [place] [address] [phone] Nurse Practitioner Dermatology 09/21/22 Brea Quinn APRN CENTRAL CONTROL ROOM OPERATOR [address] [place] [address] [place] 820962 Assigned Surgical Provider 10/09/22 05/01/24 [place] [address] [place] [address] Assigned Musculoskeletal Provider 10/09/22 05/01/24 Livan Sharif MD [address] [place] [address] Assigned Heart and Vascular Provider 11/06/22 11/12/22 Catherine Cm MD [address] [place] [address] Assigned Heart and Vascular Provider 11/13/22 05/27/23 Sydnie Martinez RN Personal Advocate & Liaison (PAL) Family Medicine 03/28/23 07/31/23 Alfonso Renteria MD [address] [facility] [address] [place] [address] Assigned Neuroscience Provider 04/02/23 09/29/24 Cheng Todd PA-C [address] [place] [address] Assigned PCP 04/30/23 07/15/23 Radha Lomeli APRN CENTRAL CONTROL ROOM OPERATOR [address] [place] [address] Assigned Heart and Vascular Provider 05/28/23 Jelena David OD [address] [facility] [place] [address] MD Ophthalmology 06/15/23 Pao Joseph, RN Personal Advocate & Liaison (PAL) Nurse 08/01/23 11/07/23 Esha Grimm PA-C [address] [place] [phone] Assigned PCP 07/16/23 Valery Veronica PA-C [address] [place] [address] [phone] Physician Paraprofessional Interpreter Dermatology 09/19/23 Rey Tay MD [address] [place] [address] [phone] MD Gastroenterology 09/20/23 Rocky Zepeda DO [address] [place] [address] 406775 Physician Gastroenterology 09/20/23 Philip Dumont MD [address] [place] [address] 192765 Physician Ophthalmology 09/22/23 Meredith Carrera PA-C [address] [place] [address] [phone] Assigned Gastroenterology Provider 11/01/23 Neil Kent MD [address] [place] [address] [phone] Dermatology 11/02/23 [place] [address] [place] [address] Neurological Surgery 12/26/23 Audrey Waite PA-C [address] [place] [address] Physician Paraprofessional Interpreter Dermatology 02/28/24 Valery Veronica PA-C [address] [place] [address] Physician Paraprofessional Interpreter Dermatology 04/10/24 Herminia Hatch MD [address] [place] [address] Assigned Rheumatology Provider 07/02/24 Jelena David OD [address] [place] [address] [place] [address] Ophthalmology 08/30/24 [place] [address] [place] [address] Assigned Neuroscience Provider 09/30/24 Maru Man PA-C [address] [place] [address] Physician Paraprofessional Interpreter Dermatology 10/03/24 Maru Man PA-C [address] [place] [address] Physician Paraprofessional Interpreter Dermatology 10/22/24 Jelena David OD [address] [place] [address] [place] [address] Assigned Surgical Provider 10/31/24 documented as of this encounter
--- OUTSIDE RECORDS SUMMARY | 2024-11-21 04:18 | XMS_ITS | Encounter Summary ---
Author Organization [facility] Address [address] [place] [address] Care Team Providers Care Powderer Name Role Phone Lita Oseguera Unavailable Unavailable Rakesh Cid PA-C Unavailable Marija Edgar APRN PHOTOGRAPHIC TECHNICIAN Primary Care Provider + Chanelle Mccann APRN CN Unavailab le Lesley Guillermo CHW Unavailable [phone] Kyara De La Fuente RN Unavailable [phone] Marija Edgar APRN [facility] Unavailable Mynor Broussard MD Unavailable [phone] Keisha Dotson MD Unavailable Mary Mejia Unavailable Unavailable Stacey Briones PATCH MACHINE OPERATOR Unavailable Lesley Guillermo CHW Unavailable [phone] Mary Mejia Unavailable Unavailable Lita Oseguera Unavailable Unavailable Galo Burrell MD Unavailable Unavailable Cristina oWod Unavailable Lesley Guillermo CHW Unavailable [phone] Meredith Bedoya Unavailable Unavailable Cristina Wood Unavailable Diana Desir [facility] Unavailable [phone] Rain Galaviz PA-C Unavailable Summer Lara MD Unavailable [phone] Summer Lara MD Unavailable [phone] Summer Lara MD Unavailable [phone] Tavia Wyatt MD Unavailable [phone] Johnny Murillo MD Unavailable [phone] Erica Farrell APRN PHOTOGRAPHIC TECHNICIAN Unavailable Teresita Bean [facility] Unavailable Tavia Wyatt MD Unavailable [phone] Diana Desir [facility] Unavailable [phone] Rich Barrett MD Unavailable Neil Kent MD Unavailable Roney StoryM Unavailable Erica Farrell APRN PHOTOGRAPHIC TECHNICIAN Unavailable + Diana Desir [facility] Unavailable [phone] Jelena David OD Unavailable [phone] Galo Burrell MD Unavailable Unavailable Livan Sharif MD Unavailable Livan Sharif MD Unavailable + Catherine Cm MD Unavailable + Valery Veronica PA-C Unavailable [phone] Catherine Cm MD Unavailable + Johnny Murillo MD Unavailable [phone] Brea Quinn APRN PHOTOGRAPHIC TECHNICIAN Unavailable [phone] [place], Brea P INSPECTOR REPAIRER SANDSTONE PHOTOGRAPHIC TECHNICIAN Unavailable [phone] Jose Francisco Johnson MD Unavailable Livan Sharif MD Unavailable Catherine Cm MD Unavailable + Sydnie Martinez RN Unavailable Unavailable Alfonso Renteria MD Unavailable Esha Grimm PA-C Primary Care Provider Cheng Todd PA-C Unavailable Armani Radha Sia INSPECTOR REPAIRER SANDSTONE PHOTOGRAPHIC TECHNICIAN Unavailable [phone] Jelena David OD Unavailable [phone] Pao Joseph RN Unavailable Unavailable Esha Grimm PA-C Unavailable Valery Veronica PA-C Unavailable Rey Tay MD Unavailable Rocky Zepeda DO Unavailable Philip Dumont MD Unavailable [phone] Meredith Carrera PA-C Unavailable [phone] Neil Kent MD Unavailable Juan Pablo Emmanuel MD Unavailable Audrey Waite PA-C Unavailable Valery Veronica PA-C Unavailable Herminia Hatch MD Unavailable Jelena David OD Unavailable [phone] Juan Pablo Emmanuel MD Unavailable Maru Man PA-C Unavailable [phone] Maru Man PA-C Unavailable [phone] Jelena David OD Unavailable Encounter Details Date Type Department Care Team (Late st Contact Info) Description 05/23/2020 MyC Medical Advice [address] [address] Marija Edgar, ARLENE PHOTOGRAPHIC TECHNICIAN [address] [place] [phone] Social History Tobacco Use Types Packs/Day Years [...] CDT Legal Sex Female 4:13 AM STRATEGIC SOURCING CONSULTANT Gender Identity Female 03/02/2021 5:45 PM CDT Sexual Orientation Straight 02/28/2020 12 :51 AM CDT COVID-19 Exposure Response Date Recorded In the last month, have you been in contact with someone who was confirmed or suspected to have Coronavirus / COVID-19? No / Unsure 05/12/2020 9:03 AM STRATEGIC SOURCING CONSULTANT documented as of this encounter Plan of Treatment Upcoming Encounters Date Type Department Care Team (Late st Contact Info) Description 11/21/2024 7:00 AM CDT Office Visit [address] [phone] Maru Man PA-C [address] [place] [address] 12/20/2024 2:30 PM CDT Office Visit [facility] [id number] [place] [phone] Esha Grimm PA-C [id number] [place] [phone] 04/16/2025 11:00 AM CDT Virtual Visit [facility] [place] [address] [place] [address] Meredith Carrera PA-C [address] [place] [address] documented as of this encounter Visit Diagnoses Not on filedocumented in this encounter Additional Health Concerns Infection Onset Date Last Indicated Resolved Time Rule Out COVID-19 07/30/2020 07/30/2020 07/30/2020 7:11 PM STRATEGIC SOURCING CONSULTANT Rule Out COVID-19 08/30/2020 08/30/2020 08/30/2020 5:05 PM STRATEGIC SOURCING CONSULTANT Rule Out COVID-19 09/24/2020 09/24/2020 09/24/2020 9:24 AM CDT Rule Out COVID-19 11/05/2020 11/05/2020 11/06/2020 1:09 PM CDT Rule Out COVID-19 05/11/2021 05/11/2021 05/13/2021 10:18 AM CDT Rule Out COVID-19 07/13/2021 07/13/2021 07/14/2021 3:04 PM STRATEGIC SOURCING CONSULTANT Rule Out COVID-19 07/18/2021 07/18/2021 07/20/2021 1:56 PM STRATEGIC SOURCING CONSULTANT COVID-19 07/18/2021 07/18/2021 08/08/2021 11:3 9 PM STRATEGIC SOURCING CONSULTANT Rule Out COVID-19 12/18/2021 12/18/2021 12/19/2021 11:34 AM CDT Rule Out COVID-19 02/24/2022 02/24/2022 02/25/2022 1:08 PM CDT Rule Out COVID-19 04/26/2022 04/26/2022 04/26/2022 6:47 AM CDT Rule Out COVID-19 05/17/2022 05/17/2022 05/17/2022 10:20 PM STRATEGIC SOURCING CONSULTANT Rule Out COVID-19 06/09/2022 06/09/2022 06/09/2022 9:35 AM STRATEGIC SOURCING CONSULTANT COVID-19 06/09/2022 06/09/2022 06/30/2022 11:4 1 PM STRATEGIC SOURCING CONSULTANT Rule Out COVID-19 11/10/2022 11/10/2022 11/11/2022 12:17 PM CDT Rule Out COVID-19 03/07/2023 03/07/2023 03/07/2023 1:20 PM CDT Rule Out COVID-19 12/26/2023 12/26/2023 12/26/2023 9:50 AM CDT Rule Out COVID-19 04/09/2024 04/09/2024 04/10/2024 6:48 PM CDT Rule Out COVID-19 10/04/2024 10/04/2024 10/05/2024 9:42 AM CDT Rule Out COVID-19 11/20/2024 11/20/2024 Assessment Noted Time PHQ-9 Depression Total Score: 6 08/28/19 7:05 AM STRATEGIC SOURCING CONSULTANT documented as of this encounter Care Teams Powderer Relationship Specialty Start Date End Date Marija Edgar APRN PHOTOGRAPHIC TECHNICIAN [address] [place] [address] PCP - General Nurse Practitioner 04/30/20 04/14/23 Esha Grimm PA-C [address] [place] [phone] PCP - General Family Medicine 05/04/23 Lita Oseguera Personal Advocate & Liaison (PAL) 02/28/20 03/27/23 Rakesh Cid PA-C [address] [place] [address] Assigned PCP 03/02/20 06/07/20 Chanelle Mccann APRN CNAdma [address] [place] [address] Assigned OBGYN Provider 05/02/2005/09 Lesley Guillermo [facility] Community Health Worker 05/30/2005/12 Kyara De La Fuente, RN Specialty Cheese Tester Neurology 06/04/20 03/05/21 Marija Edgar APRN PHOTOGRAPHIC TECHNICIAN [address] [place] [address] Assigned PCP 06/08/20 04/29/23 Mynor Broussard MD [address] [address] Assigned Surgical Provider 06/01/20 11/28/21 Keisha Dotson MD [address] [place], [place] 774855 Assigned Neuroscience Provider 06/04/20 04/01/23 Mary Mejia Financial Resource Worker 08/07/20 08/21/20 Stacey Briones, [facility] Lead Cheese Tester Primary Care - CC 08/11/2012/30 Lesley Guillermo [facility] Community Health Worker 08/11/2010/01 Mary Mejia Financial Resource Worker 09/02/20 10/06/20 Lita Oseguera Personal Advocate & Liaison (PAL) Family Medicine 09/10/20 09/21/20 Galo Burrell MD Assigned Heart and Vascular Provider 10/05/20 04/02/22 Cristina Wood Financial Resource Worker 10/07/20 10/14/20 Lesley Guillermo, [facility] Community Health Worker 10/23/2012/30 Meredith Bedoya Financial Resource Worker 10/23/20 11/23/20 Nina Cristina Financial Resource Worker 02/09/21 02/09/21 Diana Desir, [facility] [address] [place] [address] Pharmacist Pharmacist 04/17/21 Rain Galaviz PA-C [address] [place] [address] [address] [place], [place] [phone] Physician Dumbwaiter Operator Dermatology 04/28/21 Summer Lara MD [address] [place] [address] [phone] Assigned OBGYN Provider 05/10/2105/23 Summer Lara MD [address] [facility] [place], [place] [phone] Assigned OBGYN Provider 05/31/21 2 Summer Lara MD [address] [place] [address] 470234 Assigned OBGYN Provider 05/24/2105/30 Tavia Wyatt MD [address] [facility] [place], [place] [phone] Dermatology 07/14/21 Johnny Murillo MD [address] [facility] [address] [place], [place] [address] Assigned Musculoskeletal Provider 08/30/21 03/17/22 Erica Farrell APRN PHOTOGRAPHIC TECHNICIAN [address] [facility] [address] [place] [address] Nurse Practitioner Cardiovascular Disease 09/09/21 Teresita Bean, [facility] [address] [place] [phone] Pharmacist Pharmacist 09/24/21 09/29/21 Tavia Wyatt MD [address] [place] [address] Assigned Surgical Provider 11/29/21 05/07/22 [facility] [address] [place] [address] Assigned MTM Pharmacist 01/02/22 Rich Barrett MD [address] [place] [address] Physician Ophthalmology 01/21/22 Neil Kent MD [address] [place], [place] 656355 Dermatology 02/24/22 Roney Story DPM [address] [facility] [address] [place], [place] 1883[address] Assigned Musculoskeletal Provider 03/20/22 08/13/22 Erica Farrell APRN PHOTOGRAPHIC TECHNICIAN [address] [place] [address] Assigned Heart and Vascular Provider 04/03/22 04/16/22 Diana Desir, [facility] [address] [place] [address] Assigned MTM Pharmacist 04/07/22 Jelena David OD [address] [facility] [place] [address] Assigned Surgical Provider 05/08/22 10/08/22 Galo Burrell MD Assigned Heart and Vascular Provider 04/17/22 06/11/22 Livan Sharif MD [address] [place] [phone] Cardiovascular Disease 05/14/22 Livan Sharif MD [address] [place] [address] Assigned Heart and Vascular Provider 06/12/22 07/23/22 Catherine Cm MD [address] [place] [phone] Cardiovascular Disease 07/21/22 Valery Veronica PAUcheC [address] [place], [place] 376425 Physician Dumbwaiter Operator Dermatology 07/21/22 Catherine Cm MD [address] [place] [address] Assigned Heart and Vascular Provider 07/24/22 11/05/22 Johnny Murillo MD [address] [place] [address] Assigned Musculoskeletal Provider 08/14/22 10/08/22 Brea Quinn APRN PHOTOGRAPHIC TECHNICIAN [address] [facility], [place] [phone] Nurse Practitioner Dermatology 09/21/22 Brea Quinn APRN PHOTOGRAPHIC TECHNICIAN [facility] [place] 191552 Assigned Surgical Provider 10/09/22 05/01/24 [place] [address] [facility] [address] [place], [place] [address] Assigned Musculoskeletal Provider 10/09/22 05/01/24 Livan Sharif MD [address] [facility] [address] [place] 629695 Assigned Heart and Vascular Provider 11/06/22 11/12/22 Catherine Cm MD [address] [facility] [address] [place] 527965 Assigned Heart and Vascular Provider 11/13/22 05/27/23 Sydnie Martinez, RN Personal Advocate & Liaison (PAL) Family Medicine 03/28/23 07/31/23 Alfonso Renteria MD [address] [facility] [address] [place] [address] Assigned Neuroscience Provider 04/02/23 09/29/24 Cheng Todd PA-C [address] [place] [address] [phone] Assigned PCP 04/30/23 07/15/23 Radha Lomeli APRN PHOTOGRAPHIC TECHNICIAN [address] [facility] [address] [place] [address] Assigned Heart and Vascular Provider 05/28/23 Jelena David OD [address] [facility] [address] [place] [phone] MD Ophthalmology 06/15/23 Pao Joseph, VJ Personal Advocate & Liaison (PAL) Nurse 08/01/23 11/07/23 Esha Grimm PA-C [address] [place] [phone] Assigned PCP 07/16/23 Valery Veronica PA-C [address] [place] [address] [phone] Physician Dumbwaiter Operator Dermatology 09/19/23 Rey Tay MD [address] [place] [address] [phone] Gastroenterology 09/20/23 Rocky Zepeda DO [address] [place] [address] 274275 Physician Gastroenterology 09/20/23 Philip Dumont MD [address] [place] [address] 025375 Physician Ophthalmology 09/22/23 Meredith Carrera PA-C [address] [place] [address] Assigned Gastroenterology Provider 11/01/23 Neil Kent MD [address] [place] [address] Dermatology 11/02/23 [place] [address] [place] [address] [phone] Neurological Surgery 12/26/23 Audrey Waite PA-C 500 [place] [address] Physician Dumbwaiter Operator Dermatology 02/28/24 Valery Veronica PA-C 293900 [address], [place] [address] Physician Dumbwaiter Operator Dermatology 04/10/24 Herminia Hatch MD [facility] [place], [place] [phone] Assigned Rheumatology Provider 07/02/24 Jelena David OD [address] [place] [address] [place] [address] Ophthalmology 08/30/24 [place] [address] [place] [address] Assigned Neuroscience Provider 09/30/24 Maru Man PA-C [address] [place] [address] Physician Dumbwaiter Operator Dermatology 10/03/24 Maru Man PA-C [address] [place] [address] Physician Dumbwaiter Operator Dermatology 10/22/24 Jelena David OD [address] [place] [address] [place] [address] Assigned Surgical Provider 10/31/24 documented as of this encounter
--- OUTSIDE RECORDS SUMMARY | 2024-11-21 04:18 | XMS_ITS | Encounter Summary ---
Author Organization [place] Address [address] [place] [address] Care Team Providers Care Pen Tender Name Role Phone Lita Oseguera Unavailable Unavailable Rakesh Cid PA-C Unavailable Marija Edgar APRN BOOT AND SADDLE REPAIR PERSON Primary Care Provider + Chanelle Mccann APRN CN Unavailab le Lesley Guillermo CHW Unavailable [phone] Kyara De La Fuente RN Unavailable [phone] Marija Edgar APRN [facility] Unavailable [phone] Mynor Broussard MD Unavailable [phone] Keisha Dotson MD Unavailable [phone] Mary Mejia Unavailable Unavailable Stacey Briones PLASTIC PROCESS TECHNICIAN Unavailable [phone] Lesley Guillermo CHW Unavailable [phone] Mary Mejia Unavailable Unavailable Lita Oseguera Unavailable Unavailable Galo Burrell MD Unavailable Unavailable Cristina Wood Unavailable Lesley Guillermo CHW Unavailable [phone] Meredith Bedoya Unavailable Unavailable Cristina Wood Unavailable Diana Desir [facility] Unavailable [phone] Rain Galaviz PA-C Unavailable Summer Lara MD Unavailable [phone] Summer Lara MD Unavailable [phone] Summer Lara MD Unavailable [phone] Tavia Wyatt MD Unavailable [phone] Johnny Murillo MD Unavailable [phone] Erica Farrell APRN BOOT AND SADDLE REPAIR PERSON Unavailable Teresita Bean [facility] Unavailable Tavia Wyatt MD Unavailable [phone] Diana Desir [facility] Unavailable [phone] Rich Barrett MD Unavailable Neil Kent MD Unavailable Roney StoryM Unavailable Erica Farrell APRN BOOT AND SADDLE REPAIR PERSON Unavailable + Diana Desir [facility] Unavailable [phone] Jelena David OD Unavailable Galo Burrell MD Unavailable Unavailable Livan Sharif MD Unavailable Livan Sharif MD Unavailable + Catherine Cm MD Unavailable + Valery Veronica PA-C Unavailable [phone] Catherine Cm MD Unavailable + Johnny Murillo MD Unavailable [phone] Brea Quinn APRN BOOT AND SADDLE REPAIR PERSON Unavailable [phone] [place], Brea P ROLL FILLER BOOT AND SADDLE REPAIR PERSON Unavailable [phone] Jose Francisco Johnson MD Unavailable Livan Sharif MD Unavailable Catherine Cm MD Unavailable + Sydnie Martinez RN Unavailable Unavailable Alfonso Renteria MD Unavailable Esha Grimm PA-C Primary Care Provider Cheng Todd PA-C Unavailable Armani Radha Sia RO[employer] FILLER BOOT AND SADDLE REPAIR PERSON Unavailable [phone] Jelena David OD Unavailable [phone] Pao Joseph RN Unavailable Unavailable Esha Grimm PA-C Unavailable [phone] Valery Veronica PA-C Unavailable Rey Tay MD Unavailable Rocky Zepeda DO Unavailable Philip Dumont MD Unavailable [phone] Meredith Carrera PA-C Unavailable [phone] Neil Kent MD Unavailable Juan Pablo Emmanuel MD Unavailable Audrey Waite PA-C Unavailable Valery Veronica PA-C Unavailable Herminia Hatch MD Unavailable Jelena David OD Unavailable [phone] Juan Pablo Emmanuel MD Unavailable Maru Man PA-C Unavailable [phone] Maru Man PA-C Unavailable [phone] Jelena David OD Unavailable Encounter Details Date Type Department Care Team (Late st Contact Info) Description 06/05/2020 MyC Medical Advice [address] [address] Marija Edgar APRN BOOT AND SADDLE REPAIR PERSON [address] [place] [phone] Social History Tobacco Use Types Packs/Day Years [...] PM CDT Legal Sex Female 4:13 AM WATERPROOFING MACHINE OPERATOR Gender Identity Female 03/02/2021 5:45 PM CDT Sexual Orientation Straight 02/28/2020 12 :51 AM CDT COVID-19 Exposure Response Date Recorded In the last month, have you been in contact with someone who was confirmed or suspected to have Coronavirus / COVID-19? No / Unsure 06/04/2020 10:30 AM WATERPROOFING MACHINE OPERATOR documented as of this encounter Miscellaneous Notes * Telephone Encounter - Marija Edgar APRN CNP - 06/09/2020 9:38 AM WATERPROOFING MACHINE OPERATOR Those referrals have been placed. The mental health attempted call but patient did not answer. Please have patient check voicemail's or await one further follow-up call. They will call her to set up Holter monitor. Thank you Marija Edgar APRN CNP on 06/09/2020 at 9:40 AM RPROOFING MACHINE OPERATOR documented in this encounter Plan of Treatment Upcoming Encounters Date Type Department Care Team (Late st Contact Info) Description 11/21/2024 7:00 AM CDT Office Visit [address] [address] Maru Man PA-C [address] [place] [address] 12/20/2024 2:30 PM CDT Office Visit [facility] [address] [place] [address] Esha Grimm PA-C [address] [place] [address] 04/16/2025 11:00 AM CDT Virtual Visit [facility] [address] [place] [phone] Meredith Carrera PA-C [address] [place] [address] documented as of this encounter Visit Diagnoses Not on filedocumented in this encounter Additional Health Concerns Infection Onset Date Last Indicated Resolved Time Rule Out COVID-19 07/30/2020 07/30/2020 07/30/2020 7:11 PM WATERPROOFING MACHINE OPERATOR Rule Out COVID-19 08/30/2020 08/30/2020 08/30/2020 5:05 PM WATERPROOFING MACHINE OPERATOR Rule Out COVID-19 09/24/2020 09/24/2020 09/24/2020 9:24 AM CDT Rule Out COVID-19 11/05/2020 11/05/2020 11/06/2020 1:09 PM CDT Rule Out COVID-19 05/11/2021 05/11/2021 05/13/2021 10:18 AM CDT Rule Out COVID-19 07/13/2021 07/13/2021 07/14/2021 3:04 PM WATERPROOFING MACHINE OPERATOR Rule Out COVID-19 07/18/2021 07/18/2021 07/20/2021 1:56 PM WATERPROOFING MACHINE OPERATOR COVID-19 07/18/2021 07/18/2021 08/08/2021 11:3 9 PM WATERPROOFING MACHINE OPERATOR Rule Out COVID-19 12/18/2021 12/18/2021 12/19/2021 11:34 AM CDT Rule Out COVID-19 02/24/2022 02/24/2022 02/25/2022 1:08 PM CDT Rule Out COVID-19 04/26/2022 04/26/2022 04/26/2022 6:47 AM CDT Rule Out COVID-19 05/17/2022 05/17/2022 05/17/2022 10:20 PM WATERPROOFING MACHINE OPERATOR Rule Out COVID-19 06/09/2022 06/09/2022 06/09/2022 9:35 AM WATERPROOFING MACHINE OPERATOR COVID-19 06/09/2022 06/09/2022 06/30/2022 11:4 1 PM WATERPROOFING MACHINE OPERATOR Rule Out COVID-19 11/10/2022 11/10/2022 11/11/2022 12:17 PM CDT Rule Out COVID-19 03/07/2023 03/07/2023 03/07/2023 1:20 PM CDT Rule Out COVID-19 12/26/2023 12/26/2023 12/26/2023 9:50 AM CDT Rule Out COVID-19 04/09/2024 04/09/2024 04/10/2024 6:48 PM CDT Rule Out COVID-19 10/04/2024 10/04/2024 10/05/2024 9:42 AM CDT Rule Out COVID-19 11/20/2024 11/20/2024 Assessment Noted Time PHQ-9 Depression Total Score: 9 06/04/20 10:35 AM WATERPROOFING MACHINE OPERATOR documented as of this encounter Care Teams Pen Tender Relationship Specialty Start Date End Date Marija Edgar APRN BOOT AND SADDLE REPAIR PERSON [address] [place] [address] PCP - General Nurse Practitioner 04/30/20 04/14/23 Esha Grimm PA-C [address] [place] [address] PCP - General Family Medicine 05/04/23 Lita Oseguera Personal Advocate & Liaison (PAL) 02/28/20 03/27/23 Rakesh Cid PA-C [address] [place] [address] Assigned PCP 03/02/20 06/07/20 Chanelle Mccann APRN CNM [address] [facility] [address] [place] [address] Assigned OBGYN Provider 05/02/2005/09 Lesley Guillermo, CHW Community Health Worker 05/30/2005/12 Kyara De La Fuente, VJ Specialty Tafe Registrar Neurology 06/04/20 03/05/21 Marija Edgar APRN BOOT AND SADDLE REPAIR PERSON [address] [place] [address] Assigned PCP 06/08/20 04/29/23 Mynor Broussard MD [address] [facility] 500 [place], [place] 666705 Assigned Surgical Provider 06/01/20 11/28/21 Keisha Dotson MD [address] [place], [place] 5[address]15 Assigned Neuroscience Provider 06/04/20 04/01/23 Mary Mejia Financial Resource Worker 08/07/20 08/21/20 Stacey Briones, PLASTIC PROCESS TECHNICIAN Lead Tafe Registrar Primary Care - CC 08/11/2012/30 Lesley Guillermo, CHW Community Health Worker 08/11/2010/01 Mary Mejia Financial Resource Worker 09/02/20 10/06/20 Lita Oseguera Personal Advocate & Liaison (PAL) Family Medicine 09/10/20 09/21/20 Galo Burrell MD Assigned Heart and Vascular Provider 10/05/20 04/02/22 Cristina Wood Financial Resource Worker 10/07/20 10/14/20 Lesley Guillermo, [facility] Community Health Worker 10/23/2012/30 Meredith Bedoya Financial Resource Worker 10/23/20 11/23/20 Cristina Wood Financial Resource Worker 02/09/21 02/09/21 [facility] [address] [place] [address] Pharmacist Pharmacist 04/17/21 Rain Galaviz PA-C [address] [place] [address] [address] [place], [place] [phone] Physician Release And Technical Records Clerk Dermatology 04/28/21 Summer Lara MD [address] [place] [address] 428404 Assigned OBGYN Provider 05/10/2105/23 Summer Lara MD [address] [place] [address] 178064 Assigned OBGYN Provider 05/31/21 2 Summer Lara MD [address] [place] [address] Assigned OBGYN Provider 05/24/2105/30 Tavia Wyatt MD [address] [place] [address] Dermatology 07/14/21 Johnny Murillo MD [facility] [place] 16[address] [place] [address] Assigned Musculoskeletal Provider 08/30/21 03/17/22 Erica Farrell APRN BOOT AND SADDLE REPAIR PERSON [address] [facility] [address] [place] [address] Nurse Practitioner Cardiovascular Disease 09/09/21 [facility] [address] [facility] [place], [place] [phone] Pharmacist Pharmacist 09/24/21 09/29/21 Tavia Wyatt MD [address] [place] [address] Assigned Surgical Provider 11/29/21 05/07/22 [facility] [address] [place] [address] Assigned MTM Pharmacist 01/02/[address] [facility]3 [place] [address] Physician Ophthalmology 01/21/22 Neil Kent MD [address] [place] [address] Dermatology 02/24/22 Roney Story DPM [address] [facility] [address] [place] [address] Assigned Musculoskeletal Provider 03/20/22 08/13/22 Erica Farrell APRN BOOT AND SADDLE REPAIR PERSON [address] [place] [address] Assigned Heart and Vascular Provider 04/03/22 04/16/22 [facility] [address] [place] [address] Assigned MTM Pharmacist 04/07/22 Jelena David OD [address] [facility] [place] [address] Assigned Surgical Provider 05/08/22 10/08/22 Galo Burrell MD Assigned Heart and Vascular Provider 04/17/22 06/11/22 Livan Sharif MD [address] [place] [address] [place] [address] Cardiovascular Disease 05/14/22 Livan Sharif MD [address] [place] [address] [place] [address] Assigned Heart and Vascular Provider 06/12/22 07/23/22 Catherine Cm MD [address] [address] [place] 133595 Cardiovascular Disease 07/21/22 Valery Veronica, PALOMAC [address] [place] [address] Physician Release And Technical Records Clerk Dermatology 07/21/22 Catherine Cm MD [address] [facility] [address] [place] [address] Assigned Heart and Vascular Provider 07/24/22 11/05/22 Johnny Murillo MD [address] [place] [address] Assigned Musculoskeletal Provider 08/14/22 10/08/22 Brea Quinn APRN BOOT AND SADDLE REPAIR PERSON [address] [place] [address] 566975 Nurse Practitioner Dermatology 09/21/22 Brea Quinn APRN BOOT AND SADDLE REPAIR PERSON [address] [place] [address] [place] [address] Assigned Surgical Provider 10/09/22 05/01/24 [place] [address] [place] [address] [address] Assigned Musculoskeletal Provider 10/09/22 05/01/24 Livan Sharif MD [address] [address] [place] 338935 Assigned Heart and Vascular Provider 11/06/22 11/12/22 Catherine Cm MD [address] [place] [address] [place] [address] Assigned Heart and Vascular Provider 11/13/22 05/27/23 Sydnie Martinez, RN Personal Advocate & Liaison (PAL) Family Medicine 03/28/23 07/31/23 Alfonso Renteria MD [address] [facility] [address] [place] [address] Assigned Neuroscience Provider 04/02/23 09/29/24 Cheng Todd PA-C [address] [place] [address] [phone] Assigned PCP 04/30/23 07/15/23 Radha Lomeli APRN BOOT AND SADDLE REPAIR PERSON [address] [facility] [address] [place] [address] Assigned Heart and Vascular Provider 05/28/23 Jelena David OD [address] [facility] [address] [place] [phone] Ophthalmology 06/15/23 Pao Joseph RN Personal Advocate & Liaison (PAL) Nurse 08/01/23 11/07/23 Esha Grimm PA-C [address] [place] [address] Assigned PCP 07/16/23 Valery Veronica PA-C [address] [place] [address] 111805 Physician Release And Technical Records Clerk Dermatology 09/19/23 Rey Tay MD [address] [place] [address] 406445 MD Gastroenterology 09/20/23 Rocky Zepeda DO [address] [place] [address] 400855 Physician Gastroenterology 09/20/23 Philip Dumont MD [address] [place] [address] 761445 Physician Ophthalmology 09/22/23 Meredith Carrera PA-C [address] [place] [address] 741745 Assigned Gastroenterology Provider 11/01/23 Neil Kent MD [address] 269230 MD Dermatology 11/02/23 [place] [address] [place] [address] 459787 Neurological Surgery 12/26/23 Audrey Waite PA-C [address] [place] [address] 443575 Physician Release And Technical Records Clerk Dermatology 02/28/24 Valery Veronica PA-C 729112 [place] [address] Physician Release And Technical Records Clerk Dermatology 04/10/24 Herminia Hatch MD [facility]5 [place] [address] Assigned Rheumatology Provider 07/02/24 Jelena David OD [address] [facility] [place] [address] Ophthalmology 08/30/24 [place] [address] [place] [address] Assigned Neuroscience Provider 09/30/24 Maru Man PA-C [address] [place] [address] Physician Release And Technical Records Clerk Dermatology 10/03/24 Maru Man PA-C [address] [place] [address] Physician Release And Technical Records Clerk Dermatology 10/22/24 Jelena David, SONJA [address] [facility] [place] [address] Assigned Surgical Provider 10/31/24 documented as of this encounter
--- OUTSIDE RECORDS SUMMARY | 2024-11-21 04:18 | XMS_ITS | Encounter Summary ---
Author Organization [facility] Address [address] [place] [address] Care Team Providers Care Operations Specialists Name Role Phone Diana Desir [facility] Unavailable Rain Galaviz PA-C Unavailable Tavia Wyatt MD Unavailable Erica Farrell APRN BRANCH CONTROLLER Unavailable Rich Barrett MD Unavailable [phone] Neil Kent MD Unavailable Diana Desir [facility] Unavailable [phone] Livan Sharif MD Unavailable Catherine Cm MD Unavailable + Valery Veronica PA-C Unavailable Brea Quinn CORK MOLDER BRANCH CONTROLLER Unavailable Brea Quinn CORK MOLDER BRANCH CONTROLLER Unavailable Jose Francisco Johnson MD Unavailable Alfonso Renteria MD Unavailable [phone] Esha Grimm PA-C Primary Care Provider [phone] Radha Lomeli APRN BRANCH CONTROLLER Unavailable Jelena David OD Unavailable Pao Joseph RN Unavailable Unavailable AlfaJesusEsha M PA-C Unavailable Valery Veronica PA-C Unavailable [phone] Rey Tay MD Unavailable Rocky Zepeda DO Unavailable Philip Dumont MD Unavailable [phone] Meredith Carrera PA-C Unavailable [phone] Neil Kent MD Unavailable Juan Pablo Emmanuel MD Unavailable Audrey Waite PA-C Unavailable [phone] JeremíasValery damon PA-C Unavailable [phone] Herminia Hatch MD Unavailable Jelena David OD Unavailable Juan Pablo Emmanuel MD Unavailable [phone] Maru Man PA-C Unavailable Maru Man PA-C Unavailable [phone] Jelena David OD Unavailable Encounter Details Date Type Department Care Team (Late st Contact Info) Description 10/24/2023 MyC Medical Advice [facility] [address] 4th [place] [address] Kenneth Denson Social History Tobacco [...] Date Recorded PHQ-2 Score 0 10/25/2023 [facility] [...] exercise at this level? 30 min 03/10/2023 [place] Depression Scale Answer Date Recorded [place] Depression Score 5 01/14/2021 Last EPDS [...] PM CDT Legal Sex Female 4:13 AM PROBE OPERATOR Gender Identity Female 03/02/2021 5:45 PM CDT Sexual Orientation Straight 02/28/2020 12 :51 AM CDT documented as of this encounter Plan of Treatment Upcoming Encounters Date Type Department Care Team (Late st Contact Info) Description 11/21/2024 7:00 AM CDT Office Visit [facility] [address] [address] Maru Man PA-C [address] [address] 12/20/2024 2:30 PM CDT Office Visit [facility] [address] [place] [phone] Esha Grimm PA-C [address] [place] [phone] 04/16/2025 11:00 AM CDT Virtual Visit [facility] [address] 4th [place] [phone] Meredith Carrera PA-C [address] [place] [address] 339205 documented as of this encounter Visit Diagnoses [...] Total Score: 4 06/20/20 23 8:40 AM PROBE OPERATOR documented as of this encounter Care Teams Operations Specialists Relationship Specialty Start Date End Date Esha Grimm PA-C [address] [place] [phone] PCP - General Family Medicine 05/04/23 Diana Desir, [facility] [address] [place] [address] Pharmacist Pharmacist 04/17/21 Rain Galaviz PA-C [address] [place] [address] [place] [address] Physician Manager Life Dermatology 04/28/21 Tavia Wyatt MD [address] [place] [address] [address] [place] [address] Dermatology 07/14/21 Erica Farrell APRN BRANCH CONTROLLER [address] [place] [address] Nurse Practitioner Cardiovascular Disease 09/09/21 Rich Barrett MD [address] [place] 803595 Physician Ophthalmology 01/21/22 Neil Kent MD [address] [place] [address] 305655 Dermatology 02/24/22 [facility] [address] [place] [address] Assigned [facility] Pharmacist 04/07/22 Livan Sharif MD [address] [facility] [place] [address] Cardiovascular Disease 05/14/22 Catherine Cm MD [address] [facility] [place] [place] 426145 Cardiovascular Disease 07/21/22 Valery Veronica, PA-C [address] [place] [address] 415225 Physician Manager Life Dermatology 07/21/22 Brea Quinn APRN BRANCH CONTROLLER 500 [place], [place] 629475 Nurse Practitioner Dermatology 09/21/22 Brea Quinn APRN BRANCH CONTROLLER 6401 [place] [address] Assigned Surgical Provider 10/09/22 05/01/24 [place] [address] [address] Assigned Musculoskeletal Provider 10/09/22 05/01/24 Alfonso Renteria MD 5775 [facility] 200 [place], [place] 685896 Assigned Neuroscience Provider 04/02/23 09/29/24 Radha Lomeli APRN BRANCH CONTROLLER [address] [place] [phone] [place] [address] Assigned Heart and Vascular Provider 05/28/23 Jelena David OD [address] [facility] [address] Ophthalmology 06/15/23 Pao Joseph, RN Personal Advocate & Liaison (PAL) Nurse 08/01/23 11/07/23 Esha Grimm PA-C [address] [place] [address] Assigned PCP 07/16/23 Valery Veronica PA-C [address] [place] [address] Physician Manager Life Dermatology 09/19/23 Rey Tay MD [address] [place] [address] MD Gastroenterology 09/20/23 Rocky Zepeda DO [address] [place] [address] Physician Gastroenterology 09/20/23 Philip Dumont MD [address] [place] [address] Physician Ophthalmology 09/22/23 Meredith Carrera PA-C [address] [place] [address] Assigned Gastroenterology Provider 11/01/23 Neil Kent MD [address] [address] Dermatology 11/02/23 [place] [address] [place] [address] Neurological Surgery 12/26/23 Audrey Waite PA-C [address] [place] [address] 045955 Physician Manager Life Dermatology 02/28/24 Valery Veronica PA-C [address] [place] [address] Physician Manager Life Dermatology 04/10/24 Herminia Hatch MD [facility]5 [place], [place] [address] Assigned Rheumatology Provider 07/02/24 Jelena David OD [address] [facility] [place] [address] Ophthalmology 08/30/24 [place] [address] [place] [address] Assigned Neuroscience Provider 09/30/24 Maru Man PA-C [address] [place] [address] Physician Manager Life Dermatology 10/03/24 Maru Man PA-C [address] [place] [address] Physician Manager Life Dermatology 10/22/24 Jelena David OD [address] [facility] [place] [address] Assigned Surgical Provider 10/31/24 documented as of this encounter
--- OUTSIDE RECORDS SUMMARY | 2024-11-21 04:18 | XMS_ITS | Encounter Summary ---
Author Organization [facility] Address [address] [place] [address] Care Team Providers Care Clinical Team Lead Name Role Phone Lita Oseguera Unavailable Unavailable Marija Edgar APRN CORRECTIONAL OFFICER SERGEANT Primary Care Provider + Chanelle Mccann APRN CNM Unavailab le Kyara De La Fuente RN Unavailable [phone] Marija Edgar APRN CORRECTIONAL OFFICER SERGEANT Unavailable [phone] Mynor Broussard MD Unavailable [phone] Keisha Dotson MD Unavailable Mary Mejia Unavailable Unavailable Stacey Briones BAKERY SUPERVISOR Unavailable Lesley Guillermo CHW Unavailable Mary Mejia Unavailable Unavailable Lita Oseguera Unavailable Unavailable Galo Burrell MD Unavailable Unavailable Cristina Wood Unavailable Lesley Guillermo CHW Unavailable Meredith Bedoya Unavailable Unavailable Cristina Wood Unavailable Diana Desir [facility] Unavailable [phone] [place], Rain Lena PA-C Unavailable Summer Lara MD Unavailable [phone] Summer Lara MD Unavailable [phone] Summer Lara MD Unavailable [phone] Tavia Wyatt MD Unavailable [phone] Johnny Murillo MD Unavailable [phone] Erica Farrell APRN CORRECTIONAL OFFICER SERGEANT Unavailable VikasTeresita H Unavailable Tavia Wyatt MD Unavailable [phone] Diana Desir [facility] Unavailable [phone] Rich Barrett MD Unavailable [phone] Neil Kent MD Unavailable Roney Story [facility] Unavailable Erica Farrell APRN CORRECTIONAL OFFICER SERGEANT Unavailable Diana Desir [facility] Unavailable [phone] Jelena David OD Unavailable Galo Burrell MD Unavailable Unavailable Livan Sharif MD Unavailable Livan Sharif MD Unavailable Catherine Cm MD Unavailable + Valery Veronica PA-C Unavailable [phone] Catherine Cm MD Unavailable + Johnny Murillo MD Unavailable [phone] Brea Quinn APRN CORRECTIONAL OFFICER SERGEANT Unavailable [phone] Brea Quinn TESTER OPERATOR HELPER CORRECTIONAL OFFICER SERGEANT Unavailable [phone] Jose Francisco Johnson MD Unavailable Livan Sharif MD Unavailable Catherine Cm MD Unavailable + Sydnie Martinez RN Unavailable Unavailable Alfonso Renteria MD Unavailable [phone] Esha Grimm PA-C Primary Care Provider Cheng Todd PA-C Unavailable Radha Lomeli APRN, CNP Unavailable Jelena David OD Unavailable Pao Joseph RN Unavailable Unavailable Esha Grimm PA-C Unavailable [phone] Valery Veronica PA-C Unavailable Rey Tay MD Unavailable Rocky Zepeda DO Unavailable Philip Dumont MD Unavailable Meredith Carrera PA-C Unavailable [phone] Neil Kent MD Unavailable Juan Pablo Emmanuel MD Unavailable Audrey Waite PA-C Unavailable Valery Veronica PA-C Unavailable Herminia Hatch MD Unavailable Jelena David OD Unavailable [phone] Juan Pablo Emmanuel MD Unavailable Maru Man PA-C Unavailable Maru Man PA-C Unavailable Jelena David OD Unavailable [phone] Reason for Visit * Reason Comments Medication Refill Encounter Details Date Type Department Care Team (Late st Contact Info) Description 07/14/2020 Refill [facility] [id number] [place] [phone] Rakesh Cid PA-C [address] [place] [address] Medication Refill Social History Tobacco Use Types [...] PM CDT Legal Sex Female 4:13 AM EXPRESSIVE THERAPIST Gender Identity Female 03/02/2021 5:45 PM CDT Sexual Orientation Straight 02/28/2020 12 :51 AM CDT COVID-19 Exposure Response Date Recorded In the last month, have you been in contact with someone who was confirmed or suspected to have Coronavirus / COVID-19? No / Unsure 06/24/2020 3:01 PM EXPRESSIVE THERAPIST documented as of this encounter Miscellaneous Notes * Telephone Encounter - Estephania Black RN - 07/16/2020 11:38 AM EXPRESSIVE THERAPIST Routing refill request to provider for review/approval because: Labs out of range: PHQ9> 4 patient was seen 3 weeks ago. Estephania Black RN Flex ESSIVE THERAPIST * Telephone Encounter - Brea Perry RN - 07/16/2020 11:34 AM EXPRESSIVE THERAPIST Routing to correct clinic. ESSIVE THERAPIST documented in this encounter Plan of Treatment Upcoming Encounters Date Type Department Care Team (Late st Contact Info) Description 11/21/2024 7:00 AM CDT Office Visit [address] [phone] Maru Man PA-C [address] [place] [address] 12/20/2024 2:30 PM CDT Office Visit [facility] [address] [place] [address] Esha Grimm PA-C [address] [place] [address] 04/16/2025 11:00 AM CDT Virtual Visit [facility] [address] [place] [phone] Meredith Carrera PA-C [address] [place] [address] documented as of this encounter Visit Diagnoses Diagnosis Anxiety Anxiety state, unspecified documented in this encounter Additional Health Concerns Infection Onset Date Last Indicated Resolved Time Rule Out COVID-19 07/30/2020 07/30/2020 07/30/2020 7:11 PM EXPRESSIVE THERAPIST Rule Out COVID-19 08/30/2020 08/30/2020 08/30/2020 5:05 PM EXPRESSIVE THERAPIST Rule Out COVID-19 09/24/2020 09/24/2020 09/24/2020 9:24 AM CDT Rule Out COVID-19 11/05/2020 11/05/2020 11/06/2020 1:09 PM CDT Rule Out COVID-19 05/11/2021 05/11/2021 05/13/2021 10:18 AM CDT Rule Out COVID-19 07/13/2021 07/13/2021 07/14/2021 3:04 PM EXPRESSIVE THERAPIST Rule Out COVID-19 07/18/2021 07/18/2021 07/20/2021 1:56 PM EXPRESSIVE THERAPIST COVID-19 07/18/2021 07/18/2021 08/08/2021 11:3 9 PM EXPRESSIVE THERAPIST Rule Out COVID-19 12/18/2021 12/18/2021 12/19/2021 11:34 AM CDT Rule Out COVID-19 02/24/2022 02/24/2022 02/25/2022 1:08 PM CDT Rule Out COVID-19 04/26/2022 04/26/2022 04/26/2022 6:47 AM CDT Rule Out COVID-19 05/17/2022 05/17/2022 05/17/2022 10:20 PM EXPRESSIVE THERAPIST Rule Out COVID-19 06/09/2022 06/09/2022 06/09/2022 9:35 AM EXPRESSIVE THERAPIST COVID-19 06/09/2022 06/09/2022 06/30/2022 11:4 1 PM EXPRESSIVE THERAPIST Rule Out COVID-19 11/10/2022 11/10/2022 11/11/2022 12:17 PM CDT Rule Out COVID-19 03/07/2023 03/07/2023 03/07/2023 1:20 PM CDT Rule Out COVID-19 12/26/2023 12/26/2023 12/26/2023 9:50 AM CDT Rule Out COVID-19 04/09/2024 04/09/2024 04/10/2024 6:48 PM CDT Rule Out COVID-19 10/04/2024 10/04/2024 10/05/2024 9:42 AM CDT Rule Out COVID-19 11/20/2024 11/20/2024 Assessment Noted Time PHQ-9 Depression Total Score: 9 06/25/20 20 7:04 AM EXPRESSIVE THERAPIST documented as of this encounter Care Teams Clinical Team Lead Relationship Specialty Start Date End Date Marija Edgar APRN CNP PCP - General Nurse Practitioner 04/30/20 04/14/23 Esha Grimm PA-C [address] [place] [address] PCP - General Family Medicine 05/04/23 Lita Oseguera Personal Advocate & Liaison (PAL) 02/28/20 03/27/23 Chanelle Mccann APRN CNM [address] [facility] [address] [place] [address] Assigned OBGYN Provider 05/02/2005/09 Kyara De La Fuente, RN Specialty Reel Man Neurology 06/04/20 03/05/21 Marija Edgar APRN CORRECTIONAL OFFICER SERGEANT Assigned PCP 06/08/20 04/29/23 Mynor Broussard MD 6[address] [facility] 500 [place], [place] 505815 Assigned Surgical Provider 06/01/20 11/28/21 Keisha Dotson MD [address] [place] [address] Assigned Neuroscience Provider 06/04/20 04/01/23 Mary Mejia Financial Resource Worker 08/07/20 08/21/20 Stacey Briones, BAKERY SUPERVISOR Lead Reel Man Primary Care - CC 08/11/2012/30 Lesley Guillermo, [...] [facility] [address] [place] [address] Pharmacist Pharmacist 04/17/21 Rain Galaviz PA-C [address] [place] [address] [address] [place], [place] [phone] Physician Dispatcher Tow Truck Dermatology 04/28/21 Summer Lara MD [address] [place] [address] [phone] Assigned OBGYN Provider 05/10/2105/23 Summer Lara MD [address] [place] [address] [phone] Assigned OBGYN Provider 05/31/21 2 Summer Lara MD [address] [place] [address] [phone] Assigned OBGYN Provider 05/24/2105/30 Tavia Wyatt MD [address] [place] [address] [phone] Dermatology 07/14/21 Johnny Murillo MD [address] [place] [address] Assigned Musculoskeletal Provider 08/30/21 03/17/22 Erica Farrell APRN CORRECTIONAL OFFICER SERGEANT [address] [facility] [address] [place] [address] Nurse Practitioner Cardiovascular Disease 09/09/21 Teresita Bean [facility] [address] [facility] [address] Pharmacist Pharmacist 09/24/21 09/29/21 Tavia Wyatt MD [address] [place] [address] Assigned Surgical Provider 11/29/21 05/07/22 [facility] 30[address] [place] [address] Assigned MTM Pharmacist 01/02/22 Rich Barrett MD [address] [place] [address] Physician Ophthalmology 01/21/22 Neil Kent MD 500 [place] [address] Dermatology 02/24/22 Roney Story DPM [address] [facility] [address] [place] [address] Assigned Musculoskeletal Provider 03/20/22 08/13/22 Erica Farrell APRN CORRECTIONAL OFFICER SERGEANT [address] [place] [address] Assigned Heart and Vascular Provider 04/03/22 04/16/22 Diana Desir [facility] [address] [place] [address] Assigned MTM Pharmacist 04/07/22 Jelena David OD [address] [place] [address] Assigned Surgical Provider 05/08/22 10/08/22 Galo Burrell MD Assigned Heart and Vascular Provider 04/17/22 06/11/22 Livan Sharif MD [address] [place] [address] Cardiovascular Disease 05/14/22 Livan Sharif MD [address] [place] [address] Assigned Heart and Vascular Provider 06/12/22 07/23/22 Catherine Cm MD [address] [place] 210025 Cardiovascular Disease 07/21/22 Valery Veronica PAUcheC [address]09 [place] [address] Physician Dispatcher Tow Truck Dermatology 07/21/22 Catherine Cm MD [address] [place] [address] Assigned Heart and Vascular Provider 07/24/22 11/05/22 Johnny Murillo MD [address] 395384 Assigned Musculoskeletal Provider 08/14/22 10/08/22 Brea Quinn APRN CORRECTIONAL OFFICER SERGEANT 500 [place], [place] 881135 Nurse Practitioner Dermatology 09/21/22 Brea Quinn APRN CORRECTIONAL OFFICER SERGEANT [facility] [place] 824952 Assigned Surgical Provider 10/09/22 05/01/24 [place] [address] [facility] [address] [place] [address] Assigned Musculoskeletal Provider 10/09/22 05/01/24 Livan Sharif MD [address] [facility] [address] [place] [address] Assigned Heart and Vascular Provider 11/06/22 11/12/22 Catherine Cm MD 6405 [facility] [address] [place] [address] Assigned Heart and Vascular Provider 11/13/22 05/27/23 Sydnie Martinez RN Personal Advocate & Liaison (PAL) Family Medicine 03/28/23 07/31/23 Alfonso Renteria MD [address] [facility] 200 [place], [place] 018306 Assigned Neuroscience Provider 04/02/23 09/29/24 Cheng Todd PA-C [address] [place] [address] [phone] Assigned PCP 04/30/23 07/15/23 Radha Lomeli APRN CORRECTIONAL OFFICER SERGEANT [address] [facility] [address] [place], [place] 580[address] Assigned Heart and Vascular Provider 05/28/23 Jelena David OD [address] [facility] [address] [place] [id number] MD Ophthalmology 06/15/23 Pao Joseph, VJ Personal Advocate & Liaison (PAL) Nurse 08/01/23 11/07/23 Esha Grimm PA-C [address] [place] [phone] Assigned PCP 07/16/23 Valery Veronica PA-C [address] [place] [address] Physician Dispatcher Tow Truck Dermatology 09/19/23 Rey Tay MD [address] [place] [address] [phone] Gastroenterology 09/20/23 Rocky Zepeda DO [address] [place] [address] 729485 Physician Gastroenterology 09/20/23 Philip Dumont MD [address] [place] [address] [phone] Physician Ophthalmology 09/22/23 Meredith Carrera PA-C 909 [place] [address] Assigned Gastroenterology Provider 11/01/23 Neil Kent MD [address] [address] Dermatology 11/02/23 [place] [address] [place] 0[address]77 Neurological Surgery 12/26/23 Audrey Waite PA-C 500 [place] [address] Physician Dispatcher Tow Truck Dermatology 02/28/24 Valery Veronica PA-C 64[address]88 [place] [address] Physician Dispatcher Tow Truck Dermatology 04/10/24 Herminia Hatch MD [facility] [place], [place] [phone] Assigned Rheumatology Provider 07/02/24 Jelena David OD [address] [facility] [address] Ophthalmology 08/30/24 [place] [address] [address] [place] [address] Assigned Neuroscience Provider 09/30/24 Maru Man PA-C [address] [place] [address] Physician Dispatcher Tow Truck Dermatology 10/03/24 Maru Man PA-C [address] [place] [address] Physician Dispatcher Tow Truck Dermatology 10/22/24 Jelena David OD [address] [place] [address] [place] [address] Assigned Surgical Provider 10/31/24 documented as of this encounter
--- OUTSIDE RECORDS SUMMARY | 2024-11-21 04:18 | XMS_ITS | Encounter Summary ---
Author Organization [facility] Address [address] [place] [address] Care Team Providers Care Area Coordinator Name Role Phone Diana Desir [facility] Unavailable Rain Galaviz PA-C Unavailable Tavia Wyatt MD Unavailable Erica Farrell APRN RN [facility] Unavailable Rich Barrett MD Unavailable [phone] Neil Kent MD Unavailable Diana Desir [facility] Unavailable Livan Sharif MD Unavailable Catherine Cm MD Unavailable + Valery Veronica PA-C Unavailable Brea Quinn ENVELOPE MACHINE OPERATOR RN [facility] Unavailable Brea Quinn ENVELOPE MACHINE OPERATOR RN [facility] Unavailable [phone] Jose Francisco Johnson MD Unavailable Alfonso Renteria MD Unavailable [phone] Esha Grimm PA-C Primary Care Provider Radha Lomeli APRN RN [facility] Unavailable FrankieJelenae OD Unavailable Pao Joseph RN Unavailable Unavailable AlfaJesusEsha M PA-C Unavailable [phone] Valery Veronica PA-C Unavailable Rey Tay MD Unavailable Rocky Zepeda DO Unavailable Philip Dumont MD Unavailable [phone] Meredith Carrera-C Unavailable Neil Kent MD Unavailable Juan Pablo Emmanuel MD Unavailable Audrey Waite PA-C Unavailable Valery Veronica PA-C Unavailable [phone] Herminia Hatch MD Unavailable Jelena David OD Unavailable Juan Pablo Emmanuel MD Unavailable Maru ManC Unavailable Maru ManC Unavailable Reason for Visit * Reason Onset Date Comments Medication Question 10/21/2023 omeprazole Encounter Details Date Type Department Care Team (Late st Contact Info) Description 10/21/2023 Telephone [facility] [address] [place] [address] Meredith Carrera PA-C [address] [place] [address] Medication Question (omeprazole ) Social History [...] week 05/07/2024 How often do you attend [facility] or [facility]? 1 to 4 times [...] Date Recorded PHQ-2 Score 1 10/24/2024 [facility]ational Stress Questionnaire [...] exercise at this level? 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 Ptdeclined to schedule follow up until she speaks to someone from care team about the medication. Thank you. Action Taken: Message routed to: [facility] GASTRO[facility]OLOGY ADULT [facility][[id number]] Travel Screening: Not Applicable documented in this encounter Plan of Treatment Upcoming Encounters Date Type Department Care Team (Late st Contact Info) Description 11/21/2024 7:00 AM CDT Office Visit [facility] [address] [phone] Maru Man PA-C [address] [address] 12/20/2024 2:30 PM CDT Office [facility] [address] [place] [phone] Esha Grimm PA-C [address] [place] [phone] 04/16/2025 11:00 AM CDT Virtual Visit [facility] [address] 4th [place] [phone] Meredith Carrera PA-C 909 [place] [address] documented as of this encounter Visit Diagnoses Not on filedocumented in this encounter Additional Health Concerns Infection Onset Date Last Indicated Resolved Time Rule Out COVID-19 12/26/2023 12/26/2023 12/26/2023 9:50 AM CDT Rule Out COVID-19 04/09/2024 04/09/2024 04/10/2024 6:48 PM CDT Rule Out COVID-19 10/04/2024 10/04/2024 10/05/2024 9:42 AM CDT Assessment Noted Time PHQ-9 Depression Total Score: 4 06/20/20 23 8:40 AM LANDSCAPE HORTICULTURE INSTRUCTOR documented as of this encounter Care Teams Area Coordinator Relationship Specialty Start Date End Date Esha Grimm PA-C [address] [place] [phone] PCP - General Family Medicine 05/04/23 Diana Desir, [facility] [address] [facility] [place], [place] [address] Pharmacist Pharmacist 04/17/21 Rain Galaviz PA-C [address] [place] [address] [address] [facility] [place] [place] [address] Physician Farm Field Manager Dermatology 04/28/21 Tavia Wyatt MD [address] [place] [address] [address] [facility] [place] [id number] Dermatology 07/14/21 Erica Farrell APRN RN [facility] [address] [facility] [address] [place] [address] Nurse Practitioner Cardiovascular Disease 09/09/21 Rich Barrett MD [address] [place], [place] [address] Physician Ophthalmology 01/21/22 Neil Kent MD 500 [place], [place] 9[address] Dermatology 02/24/22 Diana Desir, [facility] 3033 [place], [place] 647046 Assigned [place] Pharmacist 04/07/22 Livan Sharif MD [address] [place] [address] Cardiovascular Disease 05/14/22 Catherine Cm MD [address] [facility] [address] [address] Cardiovascular Disease 07/21/22 Valery Veronica, PA-C 909 [place], [place] 332545 Physician Farm Field Manager Dermatology 07/21/22 Brea Quinn APRN RN [facility] 500 [place], [place] 020575 Nurse Practitioner Dermatology 09/21/22 Brea Quinn APRN RN [facility] 6401 [facility] [place], [place] [address] Assigned Surgical Provider 10/09/22 05/01/24 [place] [address] [address] [place] [address] Assigned Musculoskeletal Provider 10/09/22 05/01/24 Alfonso Renteria MD [facility] 200 [place], [place] [address]84[address] Assigned Neuroscience Provider 04/02/23 09/29/24 Radha Lomeli APRN RN [facility] [address] [facility] [address] [place], [place] [address]45 Assigned Heart and Vascular Provider 05/28/23 Jelena David OD [address] [facility] [place] [address] Ophthalmology 06/15/23 Pao Joseph, VJ Personal Advocate & Liaison (PAL) Nurse 08/01/23 11/07/23 Esha Grimm PA-C [address] [place] [address]299[address] Assigned PCP 07/16/23 Valery Veronica PA-C [address] [place] [address] 670525 Physician Farm Field Manager Dermatology 09/19/23 Rey Tay MD [address] [place] [address] 091465 Gastroenterology 09/20/23 Rocky Zepeda DO [address] [place] [address] [phone] Physician Gastroenterology 09/20/23 Philip Dumont MD [address] [place] [address] Physician Ophthalmology 09/22/23 Meredith Carrera PA-C [address] [place] [address] Assigned Gastroenterology Provider 11/01/23 Neil Kent MD [address] 156590 MD Dermatology 11/02/23 [place] [address] [place] [address] Neurological Surgery 12/26/23 Audrey Waite PA-C 500 [place], [place] 815745 Physician Farm Field Manager Dermatology 02/28/24 Valery Veronica PA-C [address] [place] [address] Physician Farm Field Manager Dermatology 04/10/24 Herminia Hatch MD [address]75 [place], [place] [phone] Assigned Rheumatology Provider 07/02/24 Jelena David OD [address] [facility] [place] [address] Ophthalmology 08/30/24 [place] [address] [place] [address] Assigned Neuroscience Provider 09/30/24 Maru Man PA-C [address] [place] [address] Physician Farm Field Manager Dermatology 10/03/24 Maru Man PA-C [address] [place] [address] Physician Farm Field Manager Dermatology 10/22/24 documented as of this encounter
--- OUTSIDE RECORDS SUMMARY | 2024-11-21 04:18 | XMS_ITS | Encounter Summary ---
Author Organization [place] Address [address] [place] [address] Care Team Providers Care Crane Ladle Person Name Role Phone Lita Oseguera Unavailable Unavailable Rakesh Cid PA-C Unavailable Marija Edgar APRN JUVENILE JUSTICE OFFICER Primary Care Provider + Chanelle Mccann APRN CN Unavailab le Lesley Guillermo CHW Unavailable [phone] Kyara De La Fuente RN Unavailable [phone] Marija Edgar APRN [facility] Unavailable Mynor Broussard MD Unavailable [phone] Keisha Dotson MD Unavailable [phone] Mary Mejia Unavailable Unavailable Stacey Briones PLEAT TAPER Unavailable Lesley Guillermo CHW Unavailable [phone] Mary Mejia Unavailable Unavailable Lita Oseguera Unavailable Unavailable Galo Burrell MD Unavailable Unavailable Cristina Wood Unavailable Lesley Guillermo CHW Unavailable [phone] Meredith Bedoya Unavailable Unavailable Cristina Wood Unavailable Diana Desir [facility] Unavailable [phone] Rain Galaviz PA-C Unavailable Summer Lara MD Unavailable [phone] Summer Lara MD Unavailable [phone] Summer Lara MD Unavailable [phone] Tavia Wyatt MD Unavailable [phone] Johnny Murillo MD Unavailable [phone] Erica Farrell APRN JUVENILE JUSTICE OFFICER Unavailable Teresita Bean [facility] Unavailable Tavia Wyatt MD Unavailable [phone] Diana Desir [facility] Unavailable [phone] Rich Barrett MD Unavailable Neil Kent MD Unavailable Roney StoryM Unavailable Erica Farrell APRN JUVENILE JUSTICE OFFICER Unavailable + Diana Desir [facility] Unavailable [phone] Jelena David OD Unavailable Galo Burrell MD Unavailable Unavailable Livan Sharif MD Unavailable Livan Sharif MD Unavailable + Catherine Cm MD Unavailable + Valery Veronica PA-C Unavailable [phone] Catherine Cm MD Unavailable + Johnny Murillo MD Unavailable [phone] Brea Quinn APRN JUVENILE JUSTICE OFFICER Unavailable [phone] [place], Brea P ROBOTICS TESTING TECHNICIAN JUVENILE JUSTICE OFFICER Unavailable [phone] Jose Francisco Johnson MD Unavailable Livan Sharif MD Unavailable Catherine Cm MD Unavailable + Sydnie Martinez RN Unavailable Unavailable Alfonso Renteria MD Unavailable Esha Grimm PA-C Primary Care Provider Cheng Todd PA-C Unavailable ArmaniRadha ROBOTICS TESTING TECHNICIAN JUVENILE JUSTICE OFFICER Unavailable Jelena David OD Unavailable [phone] Pao Joseph RN Unavailable Unavailable Esha Grimm PA-C Unavailable [phone] Valery Veronica PA-C Unavailable [phone] Rey Tay MD Unavailable Rocky Zepeda DO Unavailable Philip Dumont MD Unavailable [phone] Meredith Carrera PA-C Unavailable [phone] Neil Kent MD Unavailable Juan Pablo Emmanuel MD Unavailable Audrey Waite PA-C Unavailable Valery Veronica PA-C Unavailable Herminia Hatch MD Unavailable Jelena David OD Unavailable Juan Pablo Emmanuel MD Unavailable Maru Man PA-C Unavailable [phone] Maru Man PA-C Unavailable [phone] Reason for Visit * Reason Onset Date Comments Referral 05/19/2020 Encounter Details Date Type Department Care Team (Late st Contact Info) Description 05/19/2020 Telephone [facility] [address], [address] [place] [address] Unknown Referral Social History Tobacco [...] Answer Date Recorded PHQ-2 Score 1 10/24/2024 [facility] Occup[facility] ional [facility] - Occupational Stress [...] exercise at this level? 20 min 05/07/2024 Waldorf Depression Scale Answer Date Recorded Waldorf Depression Score 5 01/14/2021 Last EPDS Self [...] by your partner or ex-partner? No 05/08/2024 Comments No Sex and Gender Information Value Date Recorded Sex Assigned at Female 03/02/2021 5:45 PM CDT Legal Sex Female 4:13 AM ZOO CARETAKER Gender Identity Female 03/02/2021 5:45 PM [...] Mcpherson - 05/19/2020 2:02 PM CST [facility] Call Center Phone Message May a detailed message be left on voicemail: yes Reason for Call: Appointment Intake Referring Provider Name: Marija Edgar APRN CNP in FAMILY PRACTICE Diagnosis and/or Symptoms: History of Seizures Being referred to [facility]. Please review. Thanks. Action Taken: Other: [facility] Travel Screening: Not Applicable CARETAKER documented in this encounter Plan of Treatment Upcoming Encounters Date Type Department Care Team ([facility] st Contact Info) Description 11/21/2024 7:00 AM CDT Office Visit [facility] [address] [phone] Maru Man PA-C [address] [place] [address] 12/20/2024 2:30 PM CDT Office Visit [address] [phone] Esha Grimm PA-C [address] [place] [phone] 04/16/2025 11:00 AM CDT Virtual Visit [facility] [address] [place] [phone] Meredith Carrera PA-C [address] [place] [address] documented as of this encounter Visit Diagnoses Not on filedocumented in this encounter Additional Health Concerns Infection Onset Date Last Indicated Resolved Time Rule Out COVID-19 07/30/2020 07/30/2020 07/30/2020 7:11 PM ZOO CARETAKER Rule Out COVID-19 08/30/2020 08/30/2020 08/30/2020 5:05 PM ZOO CARETAKER Rule Out COVID-19 09/24/2020 09/24/2020 09/24/2020 9:24 AM CDT Rule Out COVID-19 11/05/2020 11/05/2020 11/06/2020 1:09 PM CDT Rule Out COVID-19 05/11/2021 05/11/2021 05/13/2021 10:18 AM CDT Rule Out COVID-19 07/13/2021 07/13/2021 07/14/2021 3:04 PM ZOO CARETAKER Rule Out COVID-19 07/18/2021 07/18/2021 07/20/2021 1:56 PM ZOO CARETAKER COVID-19 07/18/2021 07/18/2021 08/08/2021 11:3 9 PM ZOO CARETAKER Rule Out COVID-19 12/18/2021 12/18/2021 12/19/2021 11:34 AM CDT Rule Out COVID-19 02/24/2022 02/24/2022 02/25/2022 1:08 PM CDT Rule Out COVID-19 04/26/2022 04/26/2022 04/26/2022 6:47 AM CDT Rule Out COVID-19 05/17/2022 05/17/2022 05/17/2022 10:20 PM ZOO CARETAKER Rule Out COVID-19 06/09/2022 06/09/2022 06/09/2022 9:35 AM ZOO CARETAKER COVID-19 06/09/2022 06/09/2022 06/30/2022 11:4 1 PM ZOO CARETAKER Rule Out COVID-19 11/10/2022 11/10/2022 11/11/2022 12:17 PM CDT Rule Out COVID-19 03/07/2023 03/07/2023 03/07/2023 1:20 PM CDT Rule Out COVID-19 12/26/2023 12/26/2023 12/26/2023 9:50 AM CDT Rule Out COVID-19 04/09/2024 04/09/2024 04/10/2024 6:48 PM CDT Rule Out COVID-19 10/04/2024 10/04/2024 10/05/2024 9:42 AM CDT Assessment Noted Time PHQ-9 Depression Total Score: 6 08/28/19 7:05 AM ZOO CARETAKER documented as of this encounter Care Teams Crane Ladle Person Relationship Specialty Start Date End Date Marija Edgar APRN JUVENILE JUSTICE OFFICER [address] [place] [address] PCP - General Nurse Practitioner 04/30/20 04/14/23 Esha Grimm PA-C [address] [place] [phone] PCP - General Family Medicine 05/04/23 Lita Oseguera Personal Advocate & Liaison (PAL) 02/28/20 03/27/23 Rakesh Cid PA-C [address] [place] [address] Assigned PCP 03/02/20 06/07/20 [place] [address] [address] [facility] [address] [place] [address] Assigned OBGYN Provider 05/02/2005/09 Lesley Guillermo, CHW Community Health Worker 05/30/2005/12 Kyara De La Fuente, RN Specialty General Labor Forklift Operator Neurology 06/04/20 03/05/21 Marija Edgar APRN JUVENILE JUSTICE OFFICER [address] [place], [place] [phone] Assigned PCP 06/08/20 04/29/23 Mynor Broussard MD [address] [facility] 500 [place], [place] 233235 Assigned Surgical Provider 06/01/20 11/28/21 Keisha Dotson MD [address] [place], [place] [phone] Assigned Neuroscience Provider 06/04/20 04/01/23 Mary Mejia Financial Resource Worker 08/07/20 08/21/20 Stacey Briones, [facility] Lead General Labor Forklift Operator Primary Care - CC 08/11/2012/30 Lesley Guillermo, W Community Health Worker 08/11/2010/01 Mary Mejia Financial Resource Worker 09/02/20 10/06/20 Lita Oseguera Personal Advocate & Liaison (PAL) Family Medicine 09/10/20 09/21/20 Galo Burrell MD Assigned Heart and Vascular Provider 10/05/20 04/02/22 Cristina Wood Financial Resource Worker 10/07/20 10/14/20 Lesley Guillermo, [facility] Community Health Worker 10/23/2012/30 Meredith Bedoya Financial Resource Worker 10/23/20 11/23/20 Nina Cristina Financial Resource Worker 02/09/21 02/09/21 Diana Desir, [facility] [address] [place] [address] Pharmacist Pharmacist 04/17/21 Rain Galaviz PA-C [address] [place] [address] [address] [place], [place] [phone] Physician Quality Assurance Group Leader Dermatology 04/28/21 Summer Lara MD [facility] [place], [place] 42[address] Assigned OBGYN Provider 05/10/2105/23 Summer Lara MD [address] [facility] [place], [place] 901264 Assigned OBGYN Provider 05/31/21 2 Summer Lara MD [address] [facility] [place], [place] 141464 Assigned OBGYN Provider 05/24/2105/30 Tavia Wyatt MD [address] [facility] [place] [address] Dermatology 07/14/21 Johnny Murillo MD [address] [place] [address] [address] [place] [address] Assigned Musculoskeletal Provider 08/30/21 03/17/22 Erica Farrell APRN JUVENILE JUSTICE OFFICER [address] [facility] [address] [place] [address] Nurse Practitioner Cardiovascular Disease 09/09/21 Teresita Bean, [facility] [address] [place] [address] Pharmacist Pharmacist 09/24/21 09/29/21 Tavia Wyatt MD [address] [place], [place] 430480 Assigned Surgical Provider 11/29/21 05/07/22 [facility] [address] [place] [address] Assigned MTM Pharmacist 01/02/22 Rich Barrett MD [address] [place] [address] Physician Ophthalmology 01/21/22 Neil Kent MD [address] [place] [address] Dermatology 02/24/22 [place] DPM [address] [facility] [address] [place] [address] Assigned Musculoskeletal Provider 03/20/22 08/13/22 Erica Farrell APRN JUVENILE JUSTICE OFFICER [address] [place] [address] Assigned Heart and Vascular Provider 04/03/22 04/16/22 Diana Desir, [facility] [address] [place] [address] Assigned MTM Pharmacist 04/07/22 Jelena David OD [address] [facility] [place] [address] Assigned Surgical Provider 05/08/22 10/08/22 Galo Burrell MD Assigned Heart and Vascular Provider 04/17/22 06/11/22 Livan Sharif MD [address] [address] [place] [address] Cardiovascular Disease 05/14/22 Livan Sharif MD [address] [address] [place] [address] Assigned Heart and Vascular Provider 06/12/22 07/23/22 Catherine Cm MD [address] [place] [address] Cardiovascular Disease 07/21/22 Valery Veronica PA-C [address] [place], [place] 477285 Physician Quality Assurance Group Leader Dermatology 07/21/22 Catherine Cm MD [address] [address] [place] [address] Assigned Heart and Vascular Provider 07/24/22 11/05/22 Johnny Murillo MD [facility] [address] Assigned Musculoskeletal Provider 08/14/22 10/08/22 Brea Quinn APRN JUVENILE JUSTICE OFFICER [address] [place] [address] Nurse Practitioner Dermatology 09/21/22 Brea Quinn APRN JUVENILE JUSTICE OFFICER [facility]1 [place] [address] Assigned Surgical Provider 10/09/22 05/01/24 [place] [address] [facility] [address] [place] [address] Assigned Musculoskeletal Provider 10/09/22 05/01/24 Livan Sharif MD [address] [facility] [address] [place] [address] Assigned Heart and Vascular Provider 11/06/22 11/12/22 Catherine Cm MD [address] [facility] [address] [place] [address] Assigned Heart and Vascular Provider 11/13/22 05/27/23 Sydnie Martinez RN Personal Advocate & Liaison (PAL) Family Medicine 03/28/23 07/31/23 Alfonso Renteria MD [address] [facility] 200 [place], [place] [address]126 Assigned Neuroscience Provider 04/02/23 09/29/24 Cheng Todd PA-C [address] [place] [address] [phone] Assigned PCP 04/30/23 07/15/23 Radha Lomeli APRN JUVENILE JUSTICE OFFICER [address] [facility] [address] [place] [address] Assigned Heart and Vascular Provider 05/28/23 Jelena David OD [address] [facility] [place] [address] MD Ophthalmology 06/15/23 Pao Joseph, VJ Personal Advocate & Liaison (PAL) Nurse 08/01/23 11/07/23 Esha Grimm PA-C [address] [place] [phone] Assigned PCP 07/16/23 Valery Veronica PA-C [address] [place] [address] Physician Quality Assurance Group Leader Dermatology 09/19/23 Rey Tay MD [address] [place] [address] Gastroenterology 09/20/23 Rocky Zepeda DO [address] [place] [address] [phone] Physician Gastroenterology 09/20/23 Philip Dumont MD [address] [place] [address] [phone] Physician Ophthalmology 09/22/23 Meredith Carrera PA-C [address] [place] [address] Assigned Gastroenterology Provider 11/01/23 Neil Kent MD [address] [address] Dermatology 11/02/23 [place] [address] [place] [address] Neurological Surgery 12/26/23 Audrey Waite PA-C 500 [place] [address] Physician Quality Assurance Group Leader Dermatology 02/28/24 Valery Veronica PA-C 381883 [place], [place] 242899 Physician Quality Assurance Group Leader Dermatology 04/10/24 Herminia Hatch MD [facility]5 [place], [place] [phone] Assigned Rheumatology Provider 07/02/24 [place] [address] [place] [address] [place] [address] Ophthalmology 08/30/24 [place] [address] [place] [address] Assigned Neuroscience Provider 09/30/24 Maru Man PA-C [address] [place] [address] Physician Quality Assurance Group Leader Dermatology 10/03/24 Maru Man PA-C [address] [place] [address] Physician Quality Assurance Group Leader Dermatology 10/22/24 documented as of this encounter
--- OUTSIDE RECORDS SUMMARY | 2024-11-21 04:18 | XMS_ITS | Encounter Summary ---
Author Organization [facility] Address [address] [place] [address] Care Team Providers Care Manager Ship Name Role Phone Rakesh Cid PA-C Unavailable [phone] Rakesh Cid PA-C Primary Care Provider [phone] Lita Oseguera Unavailable Unavailable Rakesh Cid PA-C Unavailable [phone] Isaura Lamar RN Unavailable Unavailable Lita Oseguera Unavailable Unavailable Marija Edgar APRN PROJECT SCHEDULER Primary Care Provider + Chanelle Mccann APRN CN Unavailab le Lesley Guillermo CHKamryn Unavailable [phone] Kyara De La Fuente RN Unavailable [phone] Marija Edgar APRN PROJECT SCHEDULER Unavailable [phone] Mynor Broussard MD Unavailable [phone] Keisha Dotson MD Unavailable [phone] Mary Mejia Unavailable Unavailable Stacey Briones COMMERCIAL LENDING VICE PRESIDENT Unavailable [phone] Lesley Guillermo CHW Unavailable [phone] Mary Mejia Unavailable Unavailable Lita Oseguera Unavailable Unavailable Galo Burrell MD Unavailable Unavailable Cristina Wood Unavailable Eagle Lesley C [facility] Unavailable Meredith Bedoya Unavailable Unavailable Cristina Wood Unavailable Thang Diana [place] [facility] Unavailable [phone] Rain Galaviz-C Unavailable Summer Lara MD Unavailable [phone] Summer Lara MD Unavailable [phone] Summer Lara MD Unavailable [phone] Tavia Wyatt MD Unavailable [phone] Johnny Murillo MD Unavailable Erica Farrell APRN PROJECT SCHEDULER Unavailable Teresita Bean [facility] Unavailable Tavia Wyatt MD Unavailable [phone] Diana Desir [facility] Unavailable [phone] Rich Barrett MD Unavailable [phone] Neil Kent MD Unavailable Roney Story DPM Unavailable Erica Farrell BRAND PROTECTION MANAGER PROJECT SCHEDULER Unavailable Diana Desir [facility] Unavailable [phone] Jelena David OD Unavailable Glao Burrell MD Unavailable Unavailable Livan Sharif MD Unavailable + Livan Sharif MD Unavailable + Catherine Cm MD Unavailable + Valery Veronica-C Unavailable Catherine Cm MD Unavailable + Johnny Murillo MD Unavailable [phone] Brea Quinn BRAND PROTECTION MANAGER PROJECT SCHEDULER Unavailable [phone] Brea Quinn BRAND PROTECTION MANAGER PROJECT SCHEDULER Unavailable [phone] Jose Francisco Johnson MD Unavailable Livan Sharif MD Unavailable Catherine Cm MD Unavailable + Sydnie Martinez RN Unavailable Unavailable Alfonso Renteria MD Unavailable Esha Grimm PA-C Primary Care Provider Cheng Todd PA-C Unavailable Radha Lomeli BRAND PROTECTION MANAGER PROJECT SCHEDULER Unavailable Jelena David OD Unavailable Pao Joseph RN Unavailable Unavailable Esha Grimm PA-C Unavailable [phone] Valery Veronica PA-C Unavailable Rey Tay MD Unavailable Rocky Zepeda DO Unavailable Philip Dumont MD Unavailable [phone] Meredith Carrera PA-C Unavailable [phone] Neil Kent MD Unavailable Juan Pablo Emmanuel MD Unavailable Audrey Waite PA-C Unavailable Valery Veronica PA-C Unavailable Herminia Hatch MD Unavailable Jelena David OD Unavailable Juan Pablo Emmanuel MD Unavailable Maru Man PA-C Unavailable [phone] Maru Man PA-C Unavailable + Jelena David OD Unavailable [phone] Reason for Visit * Reason Onset Date Comments Appointment 02/13/2020 Anxiety Encounter Details Date Type Department Care Team (Late st Contact Info) Description 02/13/[address] [phone] Rakesh Cid PA-C [address] [place] [address] Appointment (Anxiety) Social History Tobacco [...] CDT Legal Sex Female 4:13 AM GEL COAT SPRAYER Gender Identity Female 03/02/2021 5:45 PM CDT Sexual Orientation Straight 02/28/2020 12 :51 AM CDT documented as of this encounter Miscellaneous Notes * Telephone Encounter - Agatha Forrester RN - 02/15/2020 2:28 PM CDT Kim message sent to patient to schedule a [...] CDT Office Visit [facility] [address] [phone] Maru Man PA-C [address] [place] [address] 848100 12/20/2024 2:30 PM CDT Office Visit [facility] [address] [place] [phone] Esha Grimm PA-C [address] [place] [phone] 04/16/2025 11:00 AM CDT Virtual Visit [facility] [address] [place] [phone] Meredith Carrera PA-C [address] [place] [address] documented as of this encounter Visit Diagnoses Not on filedocumented in this encounter Additional Health Concerns Infection Onset Date Last Indicated Resolved Time Rule Out COVID-19 07/30/2020 07/30/2020 07/30/2020 7:11 PM GEL COAT SPRAYER Rule Out COVID-19 08/30/2020 08/30/2020 08/30/2020 5:05 PM GEL COAT SPRAYER Rule Out COVID-19 09/24/2020 09/24/2020 09/24/2020 9:24 AM CDT Rule Out COVID-19 11/05/2020 11/05/2020 11/06/2020 1:09 PM CDT Rule Out COVID-19 05/11/2021 05/11/2021 05/13/2021 10:18 AM CDT Rule Out COVID-19 07/13/2021 07/13/2021 07/14/2021 3:04 PM GEL COAT SPRAYER Rule Out COVID-19 07/18/2021 07/18/2021 07/20/2021 1:56 PM GEL COAT SPRAYER COVID-19 07/18/2021 07/18/2021 08/08/2021 11:3 9 PM GEL COAT SPRAYER Rule Out COVID-19 12/18/2021 12/18/2021 12/19/2021 11:34 AM CDT Rule Out COVID-19 02/24/2022 02/24/2022 02/25/2022 1:08 PM CDT Rule Out COVID-19 04/26/2022 04/26/2022 04/26/2022 6:47 AM CDT Rule Out COVID-19 05/17/2022 05/17/2022 05/17/2022 10:20 PM GEL COAT SPRAYER Rule Out COVID-19 06/09/2022 06/09/2022 06/09/2022 9:35 AM GEL COAT SPRAYER COVID-19 06/09/2022 06/09/2022 06/30/2022 11:4 1 PM GEL COAT SPRAYER Rule Out COVID-19 11/10/2022 11/10/2022 11/11/2022 12:17 PM CDT Rule Out COVID-19 03/07/2023 03/07/2023 03/07/2023 1:20 PM CDT Rule Out COVID-19 12/26/2023 12/26/2023 12/26/2023 9:50 AM CDT Rule Out COVID-19 04/09/2024 04/09/2024 04/10/2024 6:48 PM CDT Rule Out COVID-19 10/04/2024 10/04/2024 10/05/2024 9:42 AM CDT Rule Out COVID-19 11/20/2024 11/20/2024 Assessment Noted Time PHQ-9 Depression Total Score: 1 09/11/19 1:42 PM GEL COAT SPRAYER documented as of this encounter Care Teams Manager Ship Relationship Specialty Start Date End Date Rakesh Cid PA-C [address] [address] [facility] [address] PCP - General Physician Web Developer - Medical 05/14/19 04/29/20 Marija Edgar APRN PROJECT SCHEDULER PCP - General Nurse Practitioner 04/30/20 04/14/23 Esha Grimm PA-C [address] [place] [phone] PCP - General Family Medicine 05/04/23 Rakesh Cid PA-C [address] [place] [address] Assigned PCP 05/06/19 03/01/20 Lita Oseguera Personal Advocate & Liaison (PAL) 02/28/20 03/27/23 Rakesh Cid PA-C [address] [address] [place] [address] Assigned PCP 03/02/20 06/07/20 Isaura Lamar, RN Personal Advocate & Liaison (PAL) Family Practice 04/03/20 04/06/20 Lita Oseguera Personal Advocate & Liaison (PAL) 04/07/20 04/29/20 Chanelle Mccann APRN CNM [address] [address] [facility], [address] [address] Assigned OBGYN Provider 05/02/2005/09 Lesley Guillermo, [facility] Community Health Worker 05/30/2005/12 Kyara De La Fuente, RN Specialty Bakery Team Leader Neurology 06/04/20 03/05/21 Marija Edgar APRN PROJECT SCHEDULER Assigned PCP 06/08/20 04/29/23 Mynor Broussard MD [address] [address] Assigned Surgical Provider 06/01/20 11/28/21 Keisha Dotson MD [address] [place], [place] 029025 Assigned Neuroscience Provider 06/04/20 04/01/23 Mary Mejia Financial Resource Worker 08/07/20 08/21/20 Stacey Briones, [facility] Lead Bakery Team Leader Primary Care - CC 08/11/2012/30 Lesley Guillermo, [facility] Community Health Worker 08/11/2010/01 Mary Mejia Financial Resource Worker 09/02/20 10/06/20 Lita Oseguera Personal Advocate & Liaison (PAL) Family Medicine 09/10/20 09/21/20 Galo Burrell MD Assigned Heart and Vascular Provider 10/05/20 04/02/22 Cristina Wood Financial Resource Worker 10/07/20 10/14/20 Lesley Guillermo, [facility] Community Health Worker 10/23/2012/30 Meredith Bedoya Financial Resource Worker 10/23/20 11/23/20 Cristina Wood Financial Resource Worker 02/09/21 02/09/21 Diana Desir, [facility] [address] [place] [address] Pharmacist Pharmacist 04/17/21 Rain Galaviz PA-C [address] [place] [address] [place] [address] Physician Web Developer Dermatology 04/28/21 Summer Lara MD [address] [place] [address] [phone] Assigned OBGYN Provider 05/10/2105/23 Summer Lara MD [address] [place] [address] Assigned OBGYN Provider 05/31/21 Summer Lara MD [address] [place] [address] 527204 Assigned OBGYN Provider 05/24/2105/30 Tavia Wyatt MD [address] [place] [address] [phone] Dermatology 07/14/21 Johnny Murillo MD [address] [place], [place] [phone] Assigned Musculoskeletal Provider 08/30/21 03/17/22 Erica Farrell APRN PROJECT SCHEDULER [address] [facility] [address] [place] [address] Nurse Practitioner Cardiovascular Disease 09/09/21 Teresita Bean [facility] [address] [place] [phone] Pharmacist Pharmacist 09/24/21 09/29/21 Tavia Wyatt MD [address] [place] [address] Assigned Surgical Provider 11/29/21 05/07/22 Diana Desir, [facility] [address] [place] [address] Assigned MTM Pharmacist 01/02/22 Rich Barrett MD [address] [place] [address] Physician Ophthalmology 01/21/22 Neil Kent MD [address] [place] [address] Dermatology 02/24/22 Roney Story DPM [address] [facility] [address] [place], [place] 786267 Assigned Musculoskeletal Provider 03/20/22 08/13/22 Erica Farrell APRN PROJECT SCHEDULER [address] [place] [address] Assigned Heart and Vascular Provider 04/03/22 04/16/22 Diana Desir [facility] [address] [place] [address] Assigned MTM Pharmacist 04/07/22 Jelena David OD [address] [facility] [place] [address] Assigned Surgical Provider 05/08/22 10/08/22 Galo Burrell MD Assigned Heart and Vascular Provider 04/17/22 06/11/22 Livan Sharif MD [address] [place], [place] [phone] Cardiovascular Disease 05/14/22 Livan Sharif MD [address] [place] [address] Assigned Heart and Vascular Provider 06/12/22 07/23/22 Catherine Cm MD [address] [place] [phone] Cardiovascular Disease 07/21/22 Valery Veronica, PAUcheC [address] [place], [place] 564495 Physician Web Developer Dermatology 07/21/22 Catherine Cm MD [address] [place] [phone] Assigned Heart and Vascular Provider 07/24/22 11/05/22 Johnny Murillo MD [address] [place] [address] [phone] Assigned Musculoskeletal Provider 08/14/22 10/08/22 Brea Quinn APRN PROJECT SCHEDULER [address] [place] [address] Nurse Practitioner Dermatology 09/21/22 Brea Quinn APRN PROJECT SCHEDULER [address] [facility] [place] [address] Assigned Surgical Provider 10/09/22 05/01/24 [place] [address] [place] [facility] [address] [place], [place] 380987 Assigned Musculoskeletal Provider 10/09/22 05/01/24 Livan Sharif MD [address] [facility] [address] [place] [address] Assigned Heart and Vascular Provider 11/06/22 11/12/22 Catherine Cm MD [address] [facility] [address] [place] [address] Assigned Heart and Vascular Provider 11/13/22 05/27/23 Sydnie Martinez RN Personal Advocate & Liaison (PAL) Family Medicine 03/28/23 07/31/23 Alfonso Renteria MD [address] [facility] 200 [place], [place] 036606 Assigned Neuroscience Provider 04/02/23 09/29/24 Cheng Todd PA-C [address] [place] [address] Assigned PCP 04/30/23 07/15/23 Radha Lomeli, ARLENE PROJECT SCHEDULER [address] [facility] [address] [place] [address] Assigned Heart and Vascular Provider 05/28/23 Jelena David OD [address] [facility] [place] [address] MD Ophthalmology 06/15/23 Pao Joseph, VJ Personal Advocate & Liaison (PAL) Nurse 08/01/23 11/07/23 Esha Grimm PA-C [address] [place] [phone] Assigned PCP 07/16/23 Valery Veronica PA-C [address] [place] [address] 142925 Physician Web Developer Dermatology 09/19/23 Rey Tay MD [address] [place] [address] 104455 Gastroenterology 09/20/23 Rocky Zepeda DO [address] [place] [address] [phone] Physician Gastroenterology 09/20/23 Philip Dumont MD [address] [place] [address] [phone] Physician Ophthalmology 09/22/23 Meredith Carrera PA-C [address] [place] [address] 868775 Assigned Gastroenterology Provider 11/01/23 Neil Kent MD [address] [place] [address] Dermatology 11/02/23 [place] [address] [place] [address] Neurological Surgery 12/26/23 Audrey Waite PA-C 500 [place] [address] Physician Web Developer Dermatology 02/28/24 Valery Veronica PA-C 153029 [address], [place] [address] Physician Web Developer Dermatology 04/10/24 Herminia Hatch MD [address] [place] [address] [phone] Assigned Rheumatology Provider 07/02/24 [place] [address] [place] [address] [place] [address] Ophthalmology 08/30/24 [place] [address] [place] [address] Assigned Neuroscience Provider 09/30/24 Maru Man PA-C [address] [place] [address] Physician Web Developer Dermatology 10/03/24 Maru Man PA-C [address] [place] [address] Physician Web Developer Dermatology 10/22/24 Jelena David OD [address] [place] [address] [place] [address] Assigned Surgical Provider 10/31/24 documented as of this encounter
--- OUTSIDE RECORDS SUMMARY | 2024-11-21 04:18 | XMS_ITS | Encounter Summary ---
Author Organization [facility] Address [address] [place] [address] Care Team Providers Care Ssrs Report Developer Name Role Phone Rakesh Cid PA-C Primary Care Provider Lita Oseguera Unavailable Unavailable Rakesh Cid PA-C Unavailable [phone] Lita Oseguera Unavailable Unavailable Marija Edgar APRN AUTOMOTIVE UPHOLSTERER Primary Care Provider + Chanelle Mccann APRN CNM Unavailab le Lesley Guillermo Unavailable [phone] Kyara De La Fuente RN Unavailable [phone] Marija Edgar APRN AUTOMOTIVE UPHOLSTERER Unavailable [phone] Mynor Broussard MD Unavailable [phone] Keisha Dotson MD Unavailable Mary Mejia Unavailable Unavailable Stacey Briones INJECTION MOLD TECHNICIAN Unavailable [phone] Lesley Guillermo Unavailable [phone] Mary Mejia Unavailable Unavailable Lita Oseguera Unavailable Unavailable Galo Burrell MD Unavailable Unavailable Cristina Wood Unavailable Lesley Guillermo Unavailable Meredith Bedoya Unavailable Unavailable Cristina Wood Unavailable Diana Desir [facility] Unavailable [phone] Rain Galaviz PA-C Unavailable Summer Lara MD Unavailable [phone] Summer Lara MD Unavailable [phone] Summer Lara MD Unavailable [phone] Tavia Wyatt MD Unavailable [phone] Johnny Murillo MD Unavailable [phone] Erica Farrell APRN AUTOMOTIVE UPHOLSTERER Unavailable Teresita Bean [facility] Unavailable Tavia Wyatt MD Unavailable [phone] Diana Desir [facility] Unavailable [phone] Rich Barrett MD Unavailable Neil Kent MD Unavailable Roney Story DPM Unavailable Erica Farrell APRN AUTOMOTIVE UPHOLSTERER Unavailable Diana Desir [facility] Unavailable [phone] Jelena David OD Unavailable Galo Burrell MD Unavailable Unavailable Livan Sharif MD Unavailable Livan Sharif MD Unavailable + Catherine Cm MD Unavailable + Valery Veronica PA-C Unavailable [phone] Catherine Cm MD Unavailable + Johnny Murillo MD Unavailable [phone] Brea Quinn APRN AUTOMOTIVE UPHOLSTERER Unavailable [phone] Brea Quinn HOSE TURNER AUTOMOTIVE UPHOLSTERER Unavailable [phone] Jose Francisco Johnson MD Unavailable Livan Sharif MD Unavailable Catherine Cm MD Unavailable + Sydnie Martinez RN Unavailable Unavailable Alfonso Renteria MD Unavailable [phone] Esha Grimm PA-C Primary Care Provider Cheng Todd PA-C Unavailable [phone] Radha Lomeli HOSE TURNER AUTOMOTIVE UPHOLSTERER Unavailable Jelena David OD Unavailable Pao Joseph RN Unavailable Unavailable Esha Grimm PA-C Unavailable [phone] Valery Veronica PA-C Unavailable Rey Tay [...] Contact Info) Description 04/28/2020 MyC Medical Advice [facility] [address] [place] [address] [phone] Rakesh Cid PA-C [address] [place] [address] Social History Tobacco Use Types Packs/Day Years [...] PM CDT Legal Sex Female 4:13 AM HYDROTEL OPERATOR Gender Identity Female 03/02/2021 5:45 PM [...] 11/21/2024 7:00 AM CDT Office Visit [address] [phone] Maru Man PA-C [address] [place] [address] 12/20/2024 2:30 PM CDT Office Visit [address] [phone] Esha Grimm PA-C [address] [place] [address] 04/16/2025 11:00 AM CDT Virtual Visit [facility] [address] 4th [place] [phone] Meredith Carrera PA-C [address] [place] [address] documented as of this encounter Visit Diagnoses Not on filedocumented in this encounter Additional Health Concerns Infection Onset Date Last Indicated Resolved Time Rule Out COVID-19 07/30/2020 07/30/2020 07/30/2020 7:11 PM HYDROTEL OPERATOR Rule Out COVID-19 08/30/2020 08/30/2020 08/30/2020 5:05 PM HYDROTEL OPERATOR Rule Out COVID-19 09/24/2020 09/24/2020 09/24/2020 9:24 AM CDT Rule Out COVID-19 11/05/2020 11/05/2020 11/06/2020 1:09 PM CDT Rule Out COVID-19 05/11/2021 05/11/2021 05/13/2021 10:18 AM CDT Rule Out COVID-19 07/13/2021 07/13/2021 07/14/2021 3:04 PM HYDROTEL OPERATOR Rule Out COVID-19 07/18/2021 07/18/2021 07/20/2021 1:56 PM HYDROTEL OPERATOR COVID-19 07/18/2021 07/18/2021 08/08/2021 11:3 9 PM HYDROTEL OPERATOR Rule Out COVID-19 12/18/2021 12/18/2021 12/19/2021 11:34 AM CDT Rule Out COVID-19 02/24/2022 02/24/2022 02/25/2022 1:08 PM CDT Rule Out COVID-19 04/26/2022 04/26/2022 04/26/2022 6:47 AM CDT Rule Out COVID-19 05/17/2022 05/17/2022 05/17/2022 10:20 PM HYDROTEL OPERATOR Rule Out COVID-19 06/09/2022 06/09/2022 06/09/2022 9:35 AM HYDROTEL OPERATOR COVID-19 06/09/2022 06/09/2022 06/30/2022 11:4 1 PM HYDROTEL OPERATOR Rule Out COVID-19 11/10/2022 11/10/2022 11/11/2022 [...] documented as of this encounter Care Teams Ssrs Report Developer Relationship Specialty Start Date End Date Rakesh Cid PA-C PCP - General Physician Car Hopper - Medical 05/14/19 04/29/20 Marija Edgar APRN CNP 92[address] [place] [address] PCP - General Nurse Practitioner 04/30/20 04/14/23 Esha Grimm PA-C [address] [place] [phone] PCP - General Family Medicine 05/04/23 Lita Oseguera Personal Advocate & Liaison (PAL) 02/28/20 03/27/23 Rakesh Cid PA-C [address] [place] [address] Assigned PCP 03/02/20 06/07/20 Lita Oseguera Personal Advocate & Liaison (PAL) 04/07/20 04/29/20 Chanelle Mccann APRN CNM [address]18 [address] 200 [place] [address] Assigned OBGYN Provider 05/02/2005/09 Lesley Guillermo, CHW Community Health Worker 05/30/2005/12 Kyara De La Fuente, RN Specialty Cant Gang Sawyer Neurology 06/04/20 03/05/21 Marija Edgar APRN AUTOMOTIVE UPHOLSTERER [address] [place] [address] Assigned PCP 06/08/20 04/29/23 Mynor Broussard MD 6363 [facility] 500 [place] [address] Assigned Surgical Provider 06/01/20 11/28/21 Keisha Dotson MD 909 [place] [address] Assigned Neuroscience Provider 06/04/20 04/01/23 Mary Mejia Financial Resource Worker 08/07/20 08/21/20 Stacey Briones, INJECTION MOLD TECHNICIAN Lead Cant Gang Sawyer Primary Care - CC 08/11/2012/30 Lesley Guillermo CHW Community Health Worker 08/11/2010/01 Mary Mejia Financial Resource Worker 09/02/20 10/06/20 Lita Oseguera Personal Advocate & Liaison (PAL) Family Medicine 09/10/20 09/21/20 Galo Burrell MD Assigned Heart and Vascular Provider 10/05/20 04/02/22 Cristina Wood Financial Resource Worker 10/07/20 10/14/20 Lesley Guillermo, [facility] Community Health Worker 10/23/2012/30 Meredith Bedoya Financial Resource Worker 10/23/20 11/23/20 Cristina Wood Financial Resource Worker 02/09/21 02/09/21 Diana Desir, [facility] [address] [place], [place] 8[address] Pharmacist Pharmacist 04/17/21 Rain Galaviz PA-C [address] [place] [address] DR [place], [place] [phone] Physician Car Hopper Dermatology 04/28/21 Summer Lara MD [address] [place], [place] 979784 Assigned OBGYN Provider 05/10/2105/23 Summer Lara MD [address] [place] [address] 221274 Assigned OBGYN Provider 05/31/21 2 Summer Lara MD [address] [place] [address] Assigned OBGYN Provider 05/24/2105/30 Tavia Wyatt MD [address] [place] [address] Dermatology 07/14/21 Johnny Murillo MD [address] [place] [address] Assigned Musculoskeletal Provider 08/30/21 03/17/22 Erica Farrell APRN AUTOMOTIVE UPHOLSTERER [address] [facility] [address] [place] [address] Nurse Practitioner Cardiovascular Disease 09/09/21 [facility] [address] [facility] [address] [place], [place] [phone] Pharmacist Pharmacist 09/24/21 09/29/21 Tavia Wyatt MD [address] [place] [address] Assigned Surgical Provider 11/29/21 05/07/22 [facility] 3033 [place] [address] Assigned MTM Pharmacist 01/02/22 Rich Barrett MD [address] [place] [address] Physician Ophthalmology 01/21/22 Neil Kent MD 500 [place] [address] Dermatology 02/24/22 [place] [address] [facility] [address] [place] [address] Assigned Musculoskeletal Provider 03/20/22 08/13/22 Erica Farrell APRN AUTOMOTIVE UPHOLSTERER 1700 [place] [address] Assigned Heart and Vascular Provider 04/03/22 04/16/22 Diana Desir, [facility] [address] [place], [place] 554156 Assigned MTM Pharmacist 04/07/22 Jelena David OD [address] [place] [address] Assigned Surgical Provider 05/08/22 10/08/22 Galo Burrell MD Assigned Heart and Vascular Provider 04/17/22 06/11/22 Livan Sharif MD [address] [facility] [address] [place] [address] Cardiovascular Disease 05/14/22 Livan Sharif MD [address] [place] [address] Assigned Heart and Vascular Provider 06/12/22 07/23/22 Catherine Cm MD [address] [facility] [address] [place] 132015 Cardiovascular Disease 07/21/22 Valery Veronica, PA-C 909 [place] [address] Physician Car Hopper Dermatology 07/21/22 Catherine Cm MD [address] [facility]00 [place] [address] Assigned Heart and Vascular Provider 07/24/22 11/05/22 Johnny Murillo MD [address] [place] [address] Assigned Musculoskeletal Provider 08/14/22 10/08/22 Brea Quinn APRN AUTOMOTIVE UPHOLSTERER [address] [place] [address] 986435 Nurse Practitioner Dermatology 09/21/22 Brea Quinn APRN AUTOMOTIVE UPHOLSTERER [address] [place] [address] [place] 897282 Assigned Surgical Provider 10/09/22 05/01/24 [place] [address] [address] Assigned Musculoskeletal Provider 10/09/22 05/01/24 Livan Sharif MD [address] [facility] [address] [facility] [address] [place] [address] Assigned Heart and Vascular Provider 11/06/22 11/12/22 Catherine Cm MD [address] [facility]00 [place] 504765 Assigned Heart and Vascular Provider 11/13/22 05/27/23 Sydnie Martinez, VJ Personal Advocate & Liaison (PAL) Family Medicine 03/28/23 07/31/23 Alfonso Renteria MD 5775 [facility] [address] 200 [place] [address] Assigned Neuroscience Provider 04/02/23 09/29/24 Cheng Todd PA-C [address] [place] [address] Assigned PCP 04/30/23 07/15/23 Radha Lomeli APRN AUTOMOTIVE UPHOLSTERER [address] [facility] [address] [place] [address] Assigned Heart and Vascular Provider 05/28/23 Jelena David OD [address] [place] [address] Ophthalmology 06/15/23 Pao Joseph, VJ Personal Advocate & Liaison (PAL) Nurse 08/01/23 11/07/23 Esha Grimm PA-C [address] [place] [phone] Assigned PCP 07/16/23 Valery Veronica PA-C 9 [place], [place] 00[address]145 Physician Car Hopper Dermatology 09/19/23 Rey Tay MD [address] [place] [address] 200715 Gastroenterology 09/20/23 Rocky Zepeda DO [address] [place] [address] Physician Gastroenterology 09/20/23 Philip Dumont MD [address] [place] [address] Physician Ophthalmology 09/22/23 Meredith Carrera PA-C [address] [place] [address] Assigned Gastroenterology Provider 11/01/23 Neil Kent MD [address] [place] [address] MD Dermatology 11/02/23 Juan [place] [address] [place] [address] [facility] [place] [address] Neurological Surgery 12/26/23 Audrey Waite PA-C [address] [place] [address] Physician Car Hopper Dermatology 02/28/24 Valery Veronica PA-C 931742 [address] [address] Physician Car Hopper Dermatology 04/10/24 Herminia Hatch MD [address] [place] [address] [id number] Assigned Rheumatology Provider 07/02/24 Jelena David OD [address] [place] [address] [place] [address] Ophthalmology 08/30/24 [place] [address] [address] [place] [address] Assigned Neuroscience Provider 09/30/24 Maru Man PA-C [address] [place] [address] Physician Car Hopper Dermatology 10/03/24 Maru Man PA-C [address] [place] [address] Physician Car Hopper Dermatology 10/22/24 Jelena David OD [address] [facility] [place] [address] Assigned Surgical Provider 10/31/24 documented as of this encounter
--- OUTSIDE RECORDS SUMMARY | 2024-11-21 04:19 | XMS_ITS | Encounter Summary ---
Author Organization [facility] Address [address] [place] [address] Care Team Providers Care Forming Press Operator Name Role Phone Lita Oseguera Unavailable Unavailable Marija Edgar APRN WET WASH ASSEMBLER Primary Care Provider + Marija Edgar APRN WET WASH ASSEMBLER Unavailable Mynor Broussard MD Unavailable [phone] Keisha Dotson MD Unavailable Galo Burrell MD Unavailable Unavailable Diana Desir [facility] Unavailable Rain Galaviz PA-C Unavailable Summer Lara MD Unavailable [phone] Tavia Wyatt MD Unavailable Johnny Murillo MD Unavailable Erica Farrell APRN WET WASH ASSEMBLER Unavailable Teresita Bean [facility] Unavailable Tavia Wyatt MD Unavailable Diana Desir [facility] Unavailable Rich Barrett MD Unavailable [phone] Neil Kent MD Unavailable Roney Story DPM Unavailable Erica Farrell KNIFER UP WET WASH ASSEMBLER Unavailable Diana Desir [facility] Unavailable [phone] Jelena David OD Unavailable Galo Burrell MD Unavailable Unavailable Livan Sharif MD Unavailable + Livan Sharif MD Unavailable + Catherine Cm MD Unavailable + Valery Veronica PA-C Unavailable [phone] Catherine Cm MD Unavailable + Johnny Murillo MD Unavailable [phone] Brea Quinn KNIFER UP WET WASH ASSEMBLER Unavailable [phone] Brea Quinn KNIFER UP WET WASH ASSEMBLER Unavailable [phone] Jose Francisco Johnson MD Unavailable Livan Sharif MD Unavailable + IsCatherine hobbs MD Unavailable + Sydnie Martinez RN Unavailable Unavailable Alfonso Renteria MD Unavailable Esha Grimm-C Primary Care Provider Cheng Todd PA-C Unavailable Radha Lomeli KNIFER UP WET WASH ASSEMBLER Unavailable [phone] Jelena David OD Unavailable Pao Joseph RN Unavailable Unavailable Esha Grimm-C Unavailable [phone] JeremíasValery damon PA-C Unavailable [phone] Rey Tay MD Unavailable Rocky Zepeda DO Unavailable Philip Dumont MD Unavailable [phone] Meredith Carrera PA-C Unavailable [phone] Neil Kent MD Unavailable Juan Pablo Emmanuel MD Unavailable [phone] Audrey Waite PA-C Unavailable [phone] Valery Veronica PA-C Unavailable [phone] Herminia Hatch MD Unavailable Jelena David OD Unavailable Juan Pablo Emmanuel MD Unavailable [phone] Maru ManC Unavailable [phone] Maru ManC Unavailable + [phone] Jelena David OD Unavailable Encounter Details Date Type Department Care Team (Late st Contact Info) Description 08/04/[address] [address] [facility] [place] Social History Tobacco Use Types Packs/Day Years [...] Score 0 04/02/2021 [facility] - Occupational Stress Questionnaire Answer Date [...] a senior living (including now)? No 08/11/2020 [place] Depression Scale Answer Date Recorded [place] Depression Score 5 01/14/2021 Last EPDS Self Harm Result Not on file 01/14 Education Answer Date Recorded What is the highest level of school you have completed or the highest degree you have received? 12th grade 08/07/2020 Comments No Sex and Gender Information Value Date Recorded Sex Assigned at Female 03/02/2021 5:45 PM CDT Legal Sex Female 4:13 AM REAL ESTATE TRANSACTION COORDINATOR Gender Identity Female 03/02/2021 5:45 PM CDT Sexual Orientation Straight 02/28/2020 12 :51 AM CDT COVID-19 Exposure Response Date Recorded In the last month, have you been in contact with someone who was confirmed or suspected to have Coronavirus / COVID-19? No / Unsure 08/03/2021 2:24 PM REAL ESTATE TRANSACTION COORDINATOR documented as of this encounter Plan of Treatment Upcoming Encounters Date Type Department Care Team ([facility] st Contact Info) Description 11/21/2024 7:00 AM CDT Office Visit [facility] [address] [phone] Maru Man PA-C [address] [address] 12/20/2024 2:30 PM CDT Office Visit [facility] [address] [place] [address] Esha Grimm PA-C [address] [place] [address] 04/16/2025 11:00 AM CDT Virtual Visit [facility] Gastro[facility]ology Clinic [address] 4th [place] [phone] Meredith Carrera PA-C [address] [place] [address] documented as of this encounter Visit Diagnoses Not on filedocumented in this encounter Additional Health Concerns Infection Onset Date Last Indicated Resolved Time COVID-19 07/18/2021 07/18/2021 08/08/2021 11:3 9 PM REAL ESTATE TRANSACTION COORDINATOR Rule Out COVID-19 12/18/2021 12/18/2021 12/19/2021 11:34 AM CDT Rule Out COVID-19 02/24/2022 02/24/2022 02/25/2022 1:08 PM CDT Rule Out COVID-19 04/26/2022 04/26/2022 04/26/2022 6:47 AM CDT Rule Out COVID-19 05/17/2022 05/17/2022 05/17/2022 10:20 PM REAL ESTATE TRANSACTION COORDINATOR Rule Out COVID-19 06/09/2022 06/09/2022 06/09/2022 9:35 AM REAL ESTATE TRANSACTION COORDINATOR COVID-19 06/09/2022 06/09/2022 06/30/2022 11:4 1 PM REAL ESTATE TRANSACTION COORDINATOR Rule Out COVID-19 11/10/2022 11/10/2022 11/11/2022 [...] as of this encounter Care Teams Forming Press Operator Relationship Specialty Start Date End Date Marija Edgar APRN WET WASH ASSEMBLER PCP - General Nurse Practitioner 04/30/20 04/14/23 Esha Grimm PA-C [address] [place] [phone] PCP - General Family Medicine 05/04/23 Lita Oseguera Personal Advocate & Liaison (PAL) 02/28/20 03/27/23 Marija Edgar APRN WET WASH ASSEMBLER Assigned PCP 06/08/20 04/29/23 Mynor Broussard MD [address] [address] Assigned Surgical Provider 06/01/20 11/28/21 Keisha Dotson MD 909 [place] [address] Assigned Neuroscience Provider 06/04/20 04/01/23 Galo Burrell MD Assigned Heart and Vascular Provider 10/05/20 04/02/22 Diana Desir, [facility] [address] [place] [address] Pharmacist Pharmacist 04/17/21 Rain Galaviz PA-C [address] [place] [address] [address] [facility] [facility] [address] Physician Tare Worker Dermatology 04/28/21 Summer Lara MD [address] [place] [address] 115874 Assigned OBGYN Provider 05/31/21 Tavia Wyatt MD [address] [place] [address] 778434 Dermatology 07/14/21 Johnny Murillo MD [address] [place], [place] 684174 Assigned Musculoskeletal Provider 08/30/21 03/17/22 Erica Farrell APRN WET WASH ASSEMBLER 6405 [facility] [address] [place], [place] [address] Nurse Practitioner Cardiovascular Disease 09/09/21 Teresita Bean, [facility] [address] [place] [place] [phone] Pharmacist Pharmacist 09/24/21 09/29/21 Tavia Wyatt MD [address] [place], [place] 383840 Assigned Surgical Provider 11/29/21 05/07/22 Diana Desir, [facility] 3033 [place] [address] Assigned MTM Pharmacist 01/02/22 Rich Barrett MD 3033 [place] [address] Physician Ophthalmology 01/21/22 Neil Kent MD 500 [place], [place] 613805 Dermatology 02/24/22 Roney Story DPM [address] [facility] [address] [place], [place] [address] Assigned Musculoskeletal Provider 03/20/22 08/13/22 Erica Farrell APRN WET WASH ASSEMBLER 1700 [place] [address] Assigned Heart and Vascular Provider 04/03/22 04/16/22 Diana Desir, [facility] [address] [place] [address] Assigned MTM Pharmacist 04/07/22 Jelena David OD [address] [facility] [place] [address] Assigned Surgical Provider 05/08/22 10/08/22 Galo Burrell MD Assigned Heart and Vascular Provider 04/17/22 06/11/22 Livan Sharif MD 6405 [facility] [address] [place] [address] Cardiovascular Disease 05/14/22 Livan Sharif MD [address] [place] [address] Assigned Heart and Vascular Provider 06/12/22 07/23/22 Catherine Cm MD [address] [facility] [address] [place] [address] Cardiovascular Disease 07/21/22 Valery Veronica, PAUcheC [address] [place] [address] Physician Tare Worker Dermatology 07/21/22 Catherine Cm MD [address] [facility] [address] [place] [address] Assigned Heart and Vascular Provider 07/24/22 11/05/22 Johnny Murillo MD [address] [place] [address] Assigned Musculoskeletal Provider 08/14/22 10/08/22 Brea Quinn APRN WET WASH ASSEMBLER [address] [place] [address] Nurse Practitioner Dermatology 09/21/22 Brea Quinn APRN WET WASH ASSEMBLER [address] [place] [address] [place] [address] Assigned Surgical Provider 10/09/22 05/01/24 [place] [address] [facility] [address] [place] [address] Assigned Musculoskeletal Provider 10/09/22 05/01/24 Livan Sharif MD [address] [place] [address] Assigned Heart and Vascular Provider 11/06/22 11/12/22 Catherine Cm MD [address] [place] [address] Assigned Heart and Vascular Provider 11/13/22 05/27/23 Sydnie Martinez RN Personal Advocate & Liaison (PAL) Family Medicine 03/28/23 07/31/23 Alfonso Renteria MD 5775 [facility] 200 [place] [address] Assigned Neuroscience Provider 04/02/23 09/29/24 Cheng Todd PA-C [address] [place] [address] [phone] Assigned PCP 04/30/23 07/15/23 Radha Lomeli, ARL[place] WET WASH ASSEMBLER [address] [place] [address] Assigned Heart and Vascular Provider 05/28/23 Jelena David OD [address] [facility] [place] [address] Ophthalmology 06/15/23 Pao Joseph, VJ Personal Advocate & Liaison (PAL) Nurse 08/01/23 11/07/23 Esha Grimm PA-C [address] [place] [phone] Assigned PCP 07/16/23 Valery Veronica PA-C [address] [place] [address] 884665 Physician Tare Worker Dermatology 09/19/23 Rey Tay MD [address] [place] [address] [phone] MD Gastroenterology 09/20/23 Rocky Zepeda DO [address] [place] [address] [phone] Physician Gastroenterology 09/20/23 Philip Dumont MD [address] [place] [address] 639875 Physician Ophthalmology 09/22/23 Meredith Carrera PA-C [address] [place] [address] Assigned Gastroenterology Provider 11/01/23 Neil Kent MD [address] [address] Dermatology 11/02/23 [place] [address] [place] [address] Neurological Surgery 12/26/23 Audrey Waite PA-C [address] [place] [address] Physician Tare Worker Dermatology 02/28/24 Valery Veronica PA-C [address]32 [address] [facility] [address] Physician Tare Worker Dermatology 04/10/24 Herminia Hatch MD [address] [place] [address] Assigned Rheumatology Provider 07/02/24 Jelena David OD [address] [place] [address] [place] [address] Ophthalmology 08/30/24 [place] [address] [place] [address] Assigned Neuroscience Provider 09/30/24 Maru Man PA-C [address] [place] [address] Physician Tare Worker Dermatology 10/03/24 Maru Man PA-C [address] [place] [address] Physician Tare Worker Dermatology 10/22/24 Jelena David OD [address] [place] [address] [place] [address] Assigned Surgical Provider 10/31/24 documented as of this encounter
--- OUTSIDE RECORDS SUMMARY | 2024-11-21 04:19 | XMS_ITS | Encounter Summary ---
Author Organization [place] Address [address] [place] [address] Care Team Providers Care Environmental Management Specialist Name Role Phone Lita Oseguera Unavailable Unavailable Marija Edgar APRN SHIPPING SPECIALIST Primary Care Provider + Marija Edgar APRN SHIPPING SPECIALIST Unavailable Mynor Broussard MD Unavailable [phone] Keisha Dotson MD Unavailable Galo Burrell MD Unavailable Unavailable Diana Desir [facility] Unavailable Rain Galaviz PA-C Unavailable Summer Lara MD Unavailable [phone] Tavia Wyatt MD Unavailable Johnny Murillo MD Unavailable Erica Farrell APRN SHIPPING SPECIALIST Unavailable Teresita Bean [facility] Unavailable Tavia Wyatt MD Unavailable Diana Desir [facility] Unavailable Rich Barrett MD Unavailable [phone] Neil Kent MD Unavailable Roney Story DPM Unavailable Erica Farrell FAN MAIL EDITOR SHIPPING SPECIALIST Unavailable Diana Desir [facility] Unavailable [phone] Jelena David OD Unavailable Galo Burrell MD Unavailable Unavailable Livan Sharif MD Unavailable + Livan Sharif MD Unavailable + Catherine Cm MD Unavailable + Valery Veronica PA-C Unavailable [phone] Catherine Cm MD Unavailable + Johnny Murillo MD Unavailable [phone] Brea Quinn FAN MAIL EDITOR SHIPPING SPECIALIST Unavailable [phone] Brea Quinn FAN MAIL EDITOR SHIPPING SPECIALIST Unavailable [phone] Jose Francisco Johnson MD Unavailable Livan Sharif MD Unavailable + IsCatherine hobbs MD Unavailable + Sydnie Martinez RN Unavailable Unavailable Alfonso Renteria MD Unavailable Esha Grimm-C Primary Care Provider Cheng Todd PA-C Unavailable Radha Lomeli FAN MAIL EDITOR SHIPPING SPECIALIST Unavailable [phone] Jelena David OD Unavailable Pao Joseph RN Unavailable Unavailable Esha Grimm-C Unavailable [phone] JeremíasValery damon PA-C Unavailable [phone] Rey Tay MD Unavailable Rocky Zepeda DO Unavailable Philip Dumont MD Unavailable [phone] Meredith Carrera PA-C Unavailable [phone] Neil Kent MD Unavailable Juan Pablo Emmanuel MD Unavailable [phone] Audrey Waite PA-C Unavailable [phone] Valery Veronica PA-C Unavailable [phone] Herminia Hatch MD Unavailable Jelena David OD Unavailable Juan Pablo Emmanuel MD Unavailable [phone] Maru ManC Unavailable [phone] Maru ManC Unavailable [phone] Jelena David OD Unavailable Encounter Details Date Type Department Care Team (Late st Contact Info) Description 06/03/2021 [facility] [address] [address] Diana Desir, [facility] [address] [place], [place] [phone] Social History Tobacco Use Types Packs/Day Years [...] in a chcf (including now)? No 08/11/2020 [place] Depression Scale Answer Date Recorded [place] Depression Score 5 01/14/2021 Last EPDS Self Harm Result Not on file 01/14 Education Answer Date Recorded What is the highest level of school you have completed or the highest degree you have received? 12th grade 08/07/2020 Comments No Sex and Gender Information Value Date Recorded Sex Assigned at Female 03/02/2021 5:45 PM CDT Legal Sex Female 4:13 AM CARD PROCESSING CLERK Gender Identity Female 03/02/2021 5:45 PM [...] Description 11/21/2024 7:00 AM CDT Office Visit [address] [address] Maru Man PA-C [address] [place] [address] 12/20/2024 2:30 PM CDT Office Visit [facility] [address] [place] [address] Esha Grimm PA-C [address] [place] [address] 04/16/2025 11:00 AM CDT Virtual Visit [facility] [place] [id number] [facility] 4th [place] [phone] Meredith Carrera PA-C [address] [place] [address] documented as of this encounter Visit Diagnoses Not on filedocumented in this encounter Additional Health Concerns Infection Onset Date Last Indicated Resolved Time Rule Out COVID-19 07/13/2021 07/13/2021 07/14/2021 3:04 PM CARD PROCESSING CLERK Rule Out COVID-19 07/18/2021 07/18/2021 07/20/2021 1:56 PM CARD PROCESSING CLERK COVID-19 07/18/2021 07/18/2021 08/08/2021 11:3 9 PM CARD PROCESSING CLERK Rule Out COVID-19 12/18/2021 12/18/2021 12/19/2021 11:34 AM CDT Rule Out COVID-19 02/24/2022 02/24/2022 02/25/2022 1:08 PM CDT Rule Out COVID-19 04/26/2022 04/26/2022 04/26/2022 6:47 AM CDT Rule Out COVID-19 05/17/2022 05/17/2022 05/17/2022 10:20 PM CARD PROCESSING CLERK Rule Out COVID-19 06/09/2022 06/09/2022 06/09/2022 9:35 AM CARD PROCESSING CLERK COVID-19 06/09/2022 06/09/2022 06/30/2022 11:4 1 PM CARD PROCESSING CLERK Rule Out COVID-19 11/10/2022 11/10/2022 11/11/2022 [...] as of this encounter Care Teams Environmental Management Specialist Relationship Specialty Start Date End Date Marija Edgar APRN SHIPPING SPECIALIST PCP - General Nurse Practitioner 04/30/20 04/14/23 Esha Grimm PA-C [address] [place] [address] PCP - General Family Medicine 05/04/23 Lita Oseguera Personal Advocate & Liaison (PAL) 02/28/20 03/27/23 Marija Edgar APRN SHIPPING SPECIALIST Assigned PCP 06/08/20 04/29/23 Mynor Broussard MD [address] [address] Assigned Surgical Provider 06/01/20 11/28/21 Keisha Dotson MD 909 [place] [address] Assigned Neuroscience Provider 06/04/20 04/01/23 Galo Burrell MD Assigned Heart and Vascular Provider 10/05/20 04/02/22 Diana Desir, [facility] [address] [place] [address] Pharmacist Pharmacist 04/17/21 Rain Galaviz PA-C [address] [place] [address] [place] [address] Physician Order Filler Dermatology 04/28/21 Summer Lara MD [address] [place] [address] Assigned OBGYN Provider 05/31/21 2 Tavia Wyatt MD [address] [place] [address] 963504 Dermatology 07/14/21 Johnny Murlilo MD [facility] [address] Assigned Musculoskeletal Provider 08/30/21 03/17/22 Erica Farrell APRN SHIPPING SPECIALIST 6405 [facility] [address] [place] [address] Nurse Practitioner Cardiovascular Disease 09/09/21 Teresita Bean, [facility] [address] [place] [address] Pharmacist Pharmacist 09/24/21 09/29/21 Tavia Wyatt MD [address] [place] [address] Assigned Surgical Provider 11/29/21 05/07/22 Diana Desir, [facility] [address] [place] [address] Assigned MTM Pharmacist 01/02/22 Rich Barrett MD [address] [place] [address] Physician Ophthalmology 01/21/22 Neil Kent MD 500 [place] [address] Dermatology 02/24/22 [place] [address] [facility] [address] [place] [address] Assigned Musculoskeletal Provider 03/20/22 08/13/22 Erica Farrell APRN SHIPPING SPECIALIST [facility]0 [place] [address] Assigned Heart and Vascular Provider 04/03/22 04/16/22 Diana Desir, [facility] [address] [place] [address] Assigned MTM Pharmacist 04/07/22 [place] [address] [place] [address] [place] [address] Assigned Surgical Provider 05/08/22 10/08/22 Galo Burrell MD Assigned Heart and Vascular Provider 04/17/22 06/11/22 Livan Sharif MD [address] [place] [address] [place] 071165 Cardiovascular Disease 05/14/22 Livan Sharif MD [address] [place] [address] [place] [address] Assigned Heart and Vascular Provider 06/12/22 07/23/22 Catherine Cm MD [address] [address] [place] 412095 Cardiovascular Disease 07/21/22 Valery Veronica, PAUcheC [address] [place] [address] 901215 Physician Order Filler Dermatology 07/21/22 Catherine Cm MD [address] [place] [address] [place] 090955 Assigned Heart and Vascular Provider 07/24/22 11/05/22 Johnny Murillo MD [address] 940384 Assigned Musculoskeletal Provider 08/14/22 10/08/22 Brea Quinn APRN SHIPPING SPECIALIST [address] [place] [address] 648355 Nurse Practitioner Dermatology 09/21/22 Brea Quinn APRN SHIPPING SPECIALIST 6401 [facility] [place] [address] Assigned Surgical Provider 10/09/22 05/01/24 [place] [address] [place] [address] Assigned Musculoskeletal Provider 10/09/22 05/01/24 Livan Sharif MD [address] [place] [id number] [place] [address] Assigned Heart and Vascular Provider 11/06/22 11/12/22 Catherine Cm MD [address] [place] [address] [place] [address] Assigned Heart and Vascular Provider 11/13/22 05/27/23 Sydnie Martinez RN Personal Advocate & Liaison (PAL) Family Medicine 03/28/23 07/31/23 Alfonso Renteria MD 5775 [facility] 200 [place] [address] Assigned Neuroscience Provider 04/02/23 09/29/24 Cheng Todd PA-C [address] [place] [address] Assigned PCP 04/30/23 07/15/23 Radha Lomeli APRN SHIPPING SPECIALIST [address] [facility] [address] [place] [address] Assigned Heart and Vascular Provider 05/28/23 Tommy Davidmao [place] [address] [place] [address] MD Ophthalmology 06/15/23 Pao Joseph, RN Personal Advocate & Liaison (PAL) Nurse 08/01/23 11/07/23 Esha Grimm PA-C [address] [place] [address] Assigned PCP 07/16/23 Valery Veronica PA-C [address] [place] [address] 352085 Physician Order Filler Dermatology 09/19/23 Rey Tay MD [address] [place] [address] MD Gastroenterology 09/20/23 Rocky Zepeda DO [address] [place] [address] 535255 Physician Gastroenterology 09/20/23 Philip Dumont MD [address] [place] [address] 444695 Physician Ophthalmology 09/22/23 Meredith Carrera PA-C [address] [place] [address] 594285 Assigned Gastroenterology Provider 11/01/23 Neil Kent MD [address] 317620 Dermatology 11/02/23 [place] [address] [place] [address] Neurological Surgery 12/26/23 Audrey Waite PA-C 500 [place] [address] Physician Order Filler Dermatology 02/28/24 Valery Veronica PA-C 710707 [place] [address] Physician Order Filler Dermatology 04/10/24 Herminia Hatch MD [address] [place] [address] [id number] Assigned Rheumatology Provider 07/02/24 Jelena David OD [address] [place] [address] [place] [address] Ophthalmology 08/30/24 [place] [address] [place] [address] Assigned Neuroscience Provider 09/30/24 Maru Man PA-C [address] [place] [address] Physician Order Filler Dermatology 10/03/24 Maru Man PA-C [address] [place] [address] Physician Order Filler Dermatology 10/22/24 Jelena David OD [facility] [place] [address] Assigned Surgical Provider 10/31/24 documented as of this encounter
--- OUTSIDE RECORDS SUMMARY | 2024-11-21 04:19 | XMS_ITS | Encounter Summary ---
Author Organization [facility] Address [address] [place] [address] Care Team Providers Care Mineral Mixer Name Role Phone Lita Oseguera Unavailable Unavailable Marija Edgar FILLING HAULER WEAVING MACHINE CEMENTER AND FOLDER Primary Care Provider + Chanelle Mccann FILLING HAULER WEAVING CNM Unavailab le Marija Edgar APRN MACHINE CEMENTER AND FOLDER Unavailable [phone] Mynor Broussard MD Unavailable [phone] Keisha Dotson MD Unavailable [phone] Galo Burrell MD Unavailable Unavailable Diana Desir [facility] Unavailable Rain Galaviz PA-C Unavailable Summer Lara MD Unavailable [phone] Summer Lara MD Unavailable [phone] Summer Lara MD Unavailable [phone] Tavia Wyatt MD Unavailable Johnny Murillo MD Unavailable [phone] Erica Farrell FILLING HAULER WEAVING MACHINE CEMENTER AND FOLDER Unavailable Teresita Bean [facility] Unavailable Tavia Wyatt MD Unavailable DesirDiana [facility] Unavailable Rich Barrett MD Unavailable Neil Kent MD Unavailable Roney StoryM Unavailable [phone] Erica Farrell APRN MACHINE CEMENTER AND FOLDER Unavailable Diana Desir [facility] Unavailable [phone] Jelena David OD Unavailable [phone] Galo Burrell MD Unavailable Unavailable Livan Sharif MD Unavailable Livan Sharif MD Unavailable Catherine Cm MD Unavailable + Valery VeronicaC Unavailable [phone] Catherine Cm MD Unavailable + Johnny Murillo MD Unavailable [phone] Brea Quinn FILLING HAULER WEAVING MACHINE CEMENTER AND FOLDER Unavailable [phone] Brea Quinn FILLING HAULER WEAVING MACHINE CEMENTER AND FOLDER Unavailable [phone] Jose Francisco Johnson MD Unavailable Livan Sharif MD Unavailable Catherine Cm MD Unavailable + Sydnie Martinez RN Unavailable Unavailable Alfonso Renteria MD Unavailable Esha GrimmC Primary Care Provider Cheng Todd-C Unavailable [phone] Radha Lomeli APRN MACHINE CEMENTER AND FOLDER Unavailable [phone] Jelena David OD Unavailable Pao Joseph RN Unavailable Unavailable [place], Esha M PA-C Unavailable [phone] Valery Veronica PA-C Unavailable Rey Tay MD Unavailable Rocky Zepeda DO Unavailable Philip Dumont MD Unavailable Meredith Carrera PA-C Unavailable Neil Kent MD Unavailable Juan Pablo Emmanuel MD Unavailable Audrey Waite PA-C Unavailable JeremíasValery damon PA-C Unavailable [phone] Herminia Hatch MD Unavailable Jelena David OD Unavailable Juan Pablo Emmanuel MD Unavailable Maru Man PA-C Unavailable Maru Man PA-C Unavailable Jelena David OD Unavailable Encounter Details Date Type Department Care Team (Late st Contact Info) Description 04/28/2021 [facility] Medical Advice [address] [address] Marija Edgar APRN MACHINE CEMENTER AND FOLDER 1347 [facility] [place] [address] Social History Tobacco Use [...] do you attend chur or synagogue services? More than 4 times [...] a care home (including now)? No 08/11/2020 [place] Depression Scale Answer Date Recorded [place] [...] PM CDT Legal Sex Female 4:13 AM ACQUISITIONS LOGISTICS ANALYST Gender Identity Female 03/02/2021 5:45 PM [...] Health [facility] [place] [address] [address] Maru Man PA-C [address] [address] 12/20/2024 2:30 PM CDT Office Visit [facility] [address] [place] [address] Esha Grimm PA-C [address] [place] [address] 04/16/2025 11:00 AM CDT Virtual Visit [facility] [address]th [place] [phone] Meredith Carrera PA-C [address] [place] [address] 318105 documented as of this encounter Visit Diagnoses Not on filedocumented in this encounter Additional Health Concerns Infection Onset Date Last Indicated Resolved Time Rule Out COVID-19 05/11/2021 05/11/2021 05/13/2021 10:18 AM CDT Rule Out COVID-19 07/13/2021 07/13/2021 07/14/2021 3:04 PM ACQUISITIONS LOGISTICS ANALYST Rule Out COVID-19 07/18/2021 07/18/2021 07/20/2021 1:56 PM ACQUISITIONS LOGISTICS ANALYST COVID-19 07/18/2021 07/18/2021 08/08/2021 11:3 9 PM ACQUISITIONS LOGISTICS ANALYST Rule Out COVID-19 12/18/2021 12/18/2021 12/19/2021 11:34 AM CDT Rule Out COVID-19 02/24/2022 02/24/2022 02/25/2022 1:08 PM CDT Rule Out COVID-19 04/26/2022 04/26/2022 04/26/2022 6:47 AM CDT Rule Out COVID-19 05/17/2022 05/17/2022 05/17/2022 10:20 PM ACQUISITIONS LOGISTICS ANALYST Rule Out COVID-19 06/09/2022 06/09/2022 06/09/2022 9:35 AM ACQUISITIONS LOGISTICS ANALYST COVID-19 06/09/2022 06/09/2022 06/30/2022 11:4 1 PM ACQUISITIONS LOGISTICS ANALYST Rule Out COVID-19 11/10/2022 11/10/2022 11/11/2022 [...] as of this encounter Care Teams Mineral Mixer Relationship Specialty Start Date End Date Marija Edgar APRN MACHINE CEMENTER AND FOLDER PCP - General Nurse Practitioner 04/30/20 04/14/23 Esha Grimm PA-C [address] [place] [address] PCP - General Family Medicine 05/04/23 Lita Oseguera Personal Advocate & Liaison (PAL) 02/28/20 03/27/23 Chanelle Mccann APRN CNM [address] [place] [address], [facility] 200 [place] [address] Assigned OBGYN Provider 05/02/2005/09 Marija Edgar APRN MACHINE CEMENTER AND FOLDER Assigned PCP 06/08/20 04/29/23 Mynor Broussard MD 6363 [facility] 500 [place] [address] Assigned Surgical Provider 06/01/20 11/28/21 Keisha Dotson MD 909 [place] [address] Assigned Neuroscience Provider 06/04/20 04/01/23 Galo Burerll MD Assigned Heart and Vascular Provider 10/05/20 04/02/22 Diana Desir, [facility] [address] [place], [place] 4[address] Pharmacist Pharmacist 04/17/21 Rain Galaviz PA-C [address] [place] [address] [facility] 250 [place] [address] Physician Flat Lock Machine Operator Dermatology 04/28/21 Summer Lara MD [address] [place], [place] 948[address] Assigned OBGYN Provider 05/10/2105/23 Summer Lara MD [address] [place], [place] 782214 Assigned OBGYN Provider 05/31/21 2 Summer Lara MD [address] [place], [place] 431174 Assigned OBGYN Provider 05/24/2105/30 Tavia Wyatt MD 606 [facility] AV S [place], [place] 502404 Dermatology 07/14/21 Johnny Murillo MD [address] [place], [place] 070244 Assigned Musculoskeletal Provider 08/30/21 03/17/22 Erica Farrell APRN MACHINE CEMENTER AND FOLDER 6405 [facility] [address] [place] [address] Nurse Practitioner Cardiovascular Disease 09/09/21 Teresita Bean [facility] [address] [place] [phone] Pharmacist Pharmacist 09/24/21 09/29/21 Tavia Wyatt MD [address] [place], [place] 73[address] Assigned Surgical Provider 11/29/21 05/07/22 [facility] 3033 [place], [place] 894936 Assigned MTM Pharmacist 01/02/22 Rich Barrett MD 3033 [place], [place] 122146 Physician Ophthalmology 01/21/22 Neil Kent MD 500 [place], [place] 471925 Dermatology 02/24/22 Roney Story DPM [address] [facility] [address] [place], [place] 837347 Assigned Musculoskeletal Provider 03/20/22 08/13/22 Erica Farrell APRN MACHINE CEMENTER AND FOLDER 1700 [place] [address] Assigned Heart and Vascular Provider 04/03/22 04/16/22 [facility] [address] [place] [address] [address] Assigned MTM Pharmacist 04/07/22 Jelena David OD [address] [facility] [place] [address] Assigned Surgical Provider 05/08/22 10/08/22 Galo Burrell MD Assigned Heart and Vascular Provider 04/17/22 06/11/22 Livan Sharif MD [address] [place] [address] [place] [address] Cardiovascular Disease 05/14/22 Livan Sharif MD [address] [place] [address] [place] [address] Assigned Heart and Vascular Provider 06/12/22 07/23/22 Catherine Cm MD [address] [place] [address] [place] [address] Cardiovascular Disease 07/21/22 Valery Veronica, PAUcheC 909 [place] [address] Physician Flat Lock Machine Operator Dermatology 07/21/22 Catherine Cm MD [address] [address] [place] 431365 Assigned Heart and Vascular Provider 07/24/22 11/05/22 Johnny Murillo MD [address] [place] [address] 360784 Assigned Musculoskeletal Provider 08/14/22 10/08/22 Brea Quinn APRN MACHINE CEMENTER AND FOLDER [address] [place] [address] 930965 Nurse Practitioner Dermatology 09/21/22 Brea Quinn APRN MACHINE CEMENTER AND FOLDER [address] [place] [address] [place] [address] Assigned Surgical Provider 10/09/22 05/01/24 [place] [address] [place], [place] [address] [address] Assigned Musculoskeletal Provider 10/09/22 05/01/24 Livan Sharif MD [address] [address] [place] 122315 Assigned Heart and Vascular Provider 11/06/22 11/12/22 Catherine Cm MD [address] [address] [place] 681225 Assigned Heart and Vascular Provider 11/13/22 05/27/23 Sydnie Martinez RN Personal Advocate & Liaison (PAL) Family Medicine 03/28/23 07/31/23 Alfonso Renteria MD [address] [facility] [address] 200 [place] [address] Assigned Neuroscience Provider 04/02/23 09/29/24 Cheng Todd PA-C [address] [place] [address] [id number] Assigned PCP 04/30/23 07/15/23 Radha Lomeli APRN MACHINE CEMENTER AND FOLDER [address] [place] 08[address]95 Assigned Heart and Vascular Provider 05/28/23 Jelena David OD [address] [facility] [place] [address] Ophthalmology 06/15/23 Pao Joseph, VJ Personal Advocate & Liaison (PAL) Nurse 08/01/23 11/07/23 Esha Grimm PA-C [address] [place] [address] Assigned PCP 07/16/23 Valery Veronica PA-C 909 [place], [place] 401395 Physician Flat Lock Machine Operator Dermatology 09/19/23 Rey Tay MD [address] [place] [address] 035335 MD Gastroenterology 09/20/23 Rocky Zepeda DO [address] [place] [address] Physician Gastroenterology 09/20/23 Philip Dumont MD [address] [place] [address] 533335 Physician Ophthalmology 09/22/23 Meredith Carrera PA-C [address] [place] [address] 775825 Assigned Gastroenterology Provider 11/01/23 Neil Kent MD [address] [place] [address] Dermatology 11/02/23 [place] [address] [address] Neurological Surgery 12/26/23 Audrey Waite PA-C [address] [place] [address] Physician Flat Lock Machine Operator Dermatology 02/28/24 Valery Veronica PA-C 443467 [address] [address] Physician Flat Lock Machine Operator Dermatology 04/10/24 Herminia Hatch MD [address] [place] [address] Assigned Rheumatology Provider 07/02/24 Jelena David OD [address] [place] [address] [place] [address] Ophthalmology 08/30/24 [place] [address] [place] [address] Assigned Neuroscience Provider 09/30/24 Maru Man PA-C [address] [place] [address] Physician Flat Lock Machine Operator Dermatology 10/03/24 Maru Man PA-C [address] [place] [address] Physician Flat Lock Machine Operator Dermatology 10/22/24 Jelena David OD [address] [place] [address] [place] [address] Assigned Surgical Provider 10/31/24 documented as of this encounter
--- OUTSIDE RECORDS SUMMARY | 2024-11-21 04:19 | XMS_ITS | Encounter Summary ---
Author Organization [place] Address [address] [place] [address] Care Team Providers Care University Services Program Associate Name Role Phone Lita Oseguera Unavailable Unavailable Marija Edgar APRN DAIRY HELPER Primary Care Provider + Marija Edgar APRN DAIRY HELPER Unavailable [phone] Keisha Dotson MD Unavailable Diana Desir [facility] Unavailable Rain Galaviz PA-C Unavailable Tavia Wyatt MD Unavailable Erica Farrell APRN DAIRY HELPER Unavailable Rich Barrett MD Unavailable [phone] Neil Kent MD Unavailable Diana Desir [facility] Unavailable Livan Sharif MD Unavailable Catherine Cm MD Unavailable + Valery Veronica PA-C Unavailable Brea Quinn ROUNDHOUSE WORKER DAIRY HELPER Unavailable Brea Quinn ROUNDHOUSE WORKER DAIRY HELPER Unavailable Jose Francisco Johnson MD Unavailable Livan Sharif MD Unavailable Catherine Cm MD Unavailable + Sydnie Martinez RN Unavailable Unavailable Alfonso Renteria MD Unavailable Esha Grimm PA-C Primary Care Provider Cheng Todd PA-C Unavailable [phone] ArmaniRadha APRN DAIRY HELPER Unavailable [phone] Jelena David OD Unavailable [phone] Pao Joseph RN Unavailable Unavailable Esha Grimm PA-C Unavailable [phone] Valery Veronica PA-C Unavailable [phone] Rey Tay MD Unavailable Rocky Zepeda DO Unavailable Philip Dumont MD Unavailable [phone] Meredith Carrera PA-C Unavailable [phone] Neil Kent MD Unavailable Juan Pablo Emmanuel MD Unavailable [phone] Audrey Waite PA-C Unavailable [phone] Valery Veronica PA-C Unavailable Herminia Hatch MD Unavailable Jelena David OD Unavailable [phone] Juan Pablo Emmanuel MD Unavailable [phone] Maru Man PA-C Unavailable +[phone] Maru Man PA-C Unavailable [phone] Jelena David OD Unavailable [phone] Encounter Details Date Type Department Care Team (Late st Contact Info) Description 11/10/2022 MyC Medical Advice [facility] [address] [place] [phone] Lauren Claudio PA-C [address] [place], [place] [phone] Social History Tobacco Use Types Packs/Day Years [...] How often do you attend anabaptism or roman catholic serv ices? Never 09/22/2021 [...] Score 1 10/11/2022 [facility] of Occupat ional Health [...] in a longterm (including now)? No 09/22/2021 [place] Depression Scale Answer Date Recorded [place] Depression Score 5 01/14/2021 Last EPDS Self Harm Result Not on file 01/14 Education Answer Date Recorded What is the highest level of school you have completed or the highest degree you have received? 12th grade 08/07/2020 Comments No Sex and Gender Information Value Date Recorded Sex Assigned at Female 03/02/2021 5:45 PM CDT Legal Sex Female 4:13 AM BROOMCORN GRADER Gender Identity Female 03/02/2021 5:45 PM [...] 11/21/2024 7:00 AM CDT Office Visit [facility] [address] [phone] Maru Man PA-C [address] [place] [address] [phone] 12/20/2024 2:30 PM CDT Office Visit [facility] [address] [place] [phone] Esha Grimm PA-C [address] [place] [phone] 04/16/2025 11:00 AM CDT Virtual Visit [facility] [address] 4th [place] [address] Meredith Carrera PA-C [address] [place] [address] 545815 documented as of this encounter Visit Diagnoses [...] documented as of this encounter Care Teams University Services Program Associate Relationship Specialty Start Date End Date Marija Edgar APRN DAIRY HELPER PCP - General Nurse Practitioner 04/30/20 04/14/23 Esha Grimm PA-C [address] [place] [phone] PCP - General Family Medicine 05/04/23 Lita Oseguera Personal Advocate & Liaison (PAL) 02/28/20 03/27/23 Marija Edgar APRN DAIRY HELPER Assigned PCP 06/08/20 04/29/23 Keisha Dotson MD 9 [place], [place] [phone] Assigned Neuroscience Provider 06/04/20 04/01/23 Diana Desir [facility] 3033 [place], [place] [phone] Pharmacist Pharmacist 04/17/21 Rain Galaviz PA-C [address] [place] [address] [address] [place] [address] Physician Sales Service Promoter Dermatology 04/28/21 Tavia Wyatt MD [address] [place] [address] [place] [address] Dermatology 07/14/21 Erica Farrell APRN DAIRY HELPER [address] [place] [id number] Nurse Practitioner Cardiovascular Disease 09/09/21 Rich Barrett MD [address] [place] 062765 Physician Ophthalmology 01/21/22 Neil Kent MD 500 [place], [place] 723005 Dermatology 02/24/22 [facility] 3033 [place] [address] Assigned MTM Pharmacist 04/07/22 Livan Sharif MD [address] [place] 423335 Cardiovascular Disease 05/14/22 Catherine Cm MD [address] [place] 322505 Cardiovascular Disease 07/21/22 Valery Veronica PA-C 909 [place], [place] 954885 Physician Sales Service Promoter Dermatology 07/21/22 Brea Quinn APRN DAIRY HELPER [address] [place] [address] Nurse Practitioner Dermatology 09/21/22 Brea Quinn APRN DAIRY HELPER 6401 [place], [place] 331662 Assigned Surgical Provider 10/09/22 05/01/24 [place] [address] [address] Assigned Musculoskeletal Provider 10/09/22 05/01/24 Livan Sharif MD 6405 [facility] [address] [place] [address] Assigned Heart and Vascular Provider 11/06/22 11/12/22 Catherine Cm MD 6405 [facility] [address] [place] [address] Assigned Heart and Vascular Provider 11/13/22 05/27/23 Sydnie Martinez RN Personal Advocate & Liaison (PAL) Family Medicine 03/28/23 07/31/23 Alfonso Renteria MD 5775 [facility] 200 [place], [place] 616076 Assigned Neuroscience Provider 04/02/23 09/29/24 Cheng Todd PA-C [address] [place] [address] [phone] Assigned PCP 04/30/23 07/15/23 Radha Lomeli APRN DAIRY HELPER 6405 [facility] [address] [place], [place] 422535 Assigned Heart and Vascular Provider 05/28/23 Jelena David OD [address] [facility] [address] [place] [phone] Ophthalmology 06/15/23 Pao Joseph, VJ Personal Advocate & Liaison (PAL) Nurse 08/01/23 11/07/23 Esha Grimm PA-C [address] [place] [address]-726083 Assigned PCP 07/16/23 Valery Veronica PA-C [address] [place] [address] 449385 Physician Sales Service Promoter Dermatology 09/19/23 Rey Tay MD [address] [place] [address] 895435 Gastroenterology 09/20/23 Rocky Zepeda DO [address] [place] [address] 121695 Physician Gastroenterology 09/20/23 Philip Dumont MD [address] [place] [address] 147925 Physician Ophthalmology 09/22/23 Meredith Carrera PA-C 909 [place] [address] Assigned Gastroenterology Provider 11/01/23 Neil [place] MD [address] [address] MD Dermatology 11/02/23 [place] [address] [place] 416437 Neurological Surgery 12/26/23 Audrey Waite PA-C 500 [place] [address] Physician Sales Service Promoter Dermatology 02/28/24 Valery Veronica PA-C 025784 [place], [place] [address] Physician Sales Service Promoter Dermatology 04/10/24 Herminia Hatch MD [facility] [place], [place] [phone] Assigned Rheumatology Provider 07/02/24 Jelena David OD [address] [facility] [place] [address] Ophthalmology 08/30/24 [place] [address] [place] [address] Assigned Neuroscience Provider 09/30/24 Maru Man PA-C [address] [place] [address] Physician Sales Service Promoter Dermatology 10/03/24 Maru Man PA-C [address] [place] [address] Physician Sales Service Promoter Dermatology 10/22/24 Jelena David OD [address] [place] [address] [address] [place], [place] [address] Assigned Surgical Provider 10/31/24 documented as of this encounter
--- OUTSIDE RECORDS SUMMARY | 2024-11-21 04:19 | XMS_ITS | Encounter Summary ---
Author Organization [place] Address [address] [place] [address] Care Team Providers Care Semi Conductor Assembler Name Role Phone Rakesh Cid PA-C Unavailable [phone] Rakesh Cid PA-C Primary Care Provider [phone] Lita Oseguera Unavailable Unavailable Rakesh Cid PA-C Unavailable [phone] Isaura Lamar RN Unavailable Unavailable Lita Oseguera Unavailable Unavailable Marija Edgar APRN ROTOR COIL TAPER Primary Care Provider + Chanelle Mccann APRN CN Unavailab le Lesley Guillermo CHKamryn Unavailable [phone] Kyara De La Fuente RN Unavailable [phone] Marija Edgar APRN ROTOR COIL TAPER Unavailable [phone] Mynor Broussard MD Unavailable [phone] Keisha Dotson MD Unavailable [phone] Mary Mejia Unavailable Unavailable Stacey Briones SEXUAL ABUSE COUNSELLOR Unavailable [phone] Lesley Guillermo CHW Unavailable [phone] Mary Mejia Unavailable Unavailable Lita Oseguera Unavailable Unavailable Galo Burrell MD Unavailable Unavailable Cristina Wood Unavailable Eagle Lesley C [facility] Unavailable Meredith Bedoya Unavailable Unavailable Cristina Wood Unavailable Thang Diana [place] [facility] Unavailable [phone] Rain Galaviz-C Unavailable Summer Lara MD Unavailable [phone] Summer Laar MD Unavailable [phone] Summer Lara MD Unavailable [phone] Tavia Wyatt MD Unavailable [phone] Johnny Murillo MD Unavailable Erica Farrell APRN ROTOR COIL TAPER Unavailable Teresita Bean [facility] Unavailable Tavia Wyatt MD Unavailable [phone] Diana Desir [facility] Unavailable [phone] Rich Barrett MD Unavailable [phone] Neil [place] MD Unavailable Roney Story DPM Unavailable Erica Farrell BENCH MECHANIC ROTOR COIL TAPER Unavailable Diana Desir [facility] Unavailable [phone] Jelena David OD Unavailable Galo Burrell MD Unavailable Unavailable Livan Sharif MD Unavailable + Livan Sharif MD Unavailable + Catherine Cm MD Unavailable + Valery Veronica-C Unavailable Catherine Cm MD Unavailable + Johnny Murillo MD Unavailable [phone] Brea Quinn BENCH MECHANIC ROTOR COIL TAPER Unavailable [phone] Brea Quinn BENCH MECHANIC ROTOR COIL TAPER Unavailable [phone] Jose Francisco Johnson MD Unavailable iLvan Sharif MD Unavailable Catherine Cm MD Unavailable + Sydnie Martinez RN Unavailable Unavailable Alfonso Renteria MD Unavailable Esha Grimm PA-C Primary Care Provider Cheng Todd PA-C Unavailable Radha Lomeli BENCH MECHANIC ROTOR COIL TAPER Unavailable Jelena David OD Unavailable Pao Joseph RN Unavailable Unavailable Esha Grimm PA-C Unavailable [phone] Valery Veronica PA-C Unavailable eRy Tay MD Unavailable Rocky Zepeda DO Unavailable Philip Dumont MD Unavailable [phone] Meredith Carrera PA-C Unavailable [phone] Neil [place] MD Unavailable Juan Pablo Emmanuel MD Unavailable Aurdey Waite PA-C Unavailable Valery Veronica PA-C Unavailable Herminia Hatch MD Unavailable Jelena David OD Unavailable Juan Pablo Emmanuel MD Unavailable Maru Man PA-C Unavailable [phone] Maru Man PA-C Unavailable [phone] Encounter Details Date Type Department Care Team (Late st Contact Info) Description 02/27/2020 Telephone [facility] [address] [facility], [address] [place] [address] Rakesh Cid PA-C [address] [place] [address] Social History Tobacco Use Types [...] Answer Date Recorded PHQ-2 Score 1 10/24/2024 [facility] [place] of Occupat ional Health - Occupational Stress [...] exercise at this level? 20 min 05/07/2024 [place] Depression Scale Answer Date Recorded [place] Depression Score 5 01/14/2021 Last EPDS [...] CDT Legal Sex Female 4:13 AM MANAGER MILITARY Gender Identity Female 03/02/2021 5:45 PM CDT [...] message?: Yes at Home number on file [phone] (home) Violet Jeffrey Patient Campaign Marketing Manager documented in this encounter Plan of Treatment Upcoming Encounters Date Type Department Care Team (Late st Contact Info) Description 11/21/2024 7:00 AM CDT Office Visit [address] [place] [address] Maru Man PA-C [address] [address] 12/20/2024 2:30 PM CDT Office Visit [facility] [address] [place] [address] Esha Grimm PA-C [address] [place] [address] 04/16/2025 11:00 AM CDT Virtual Visit [facility] [address] [place] [phone] Meredith Carrera PA-C [address] [place] [address] documented as of this encounter Visit Diagnoses Not on filedocumented in this encounter Additional Health Concerns Infection Onset Date Last Indicated Resolved Time Rule Out COVID-19 07/30/2020 07/30/2020 07/30/2020 7:11 PM MANAGER MILITARY Rule Out COVID-19 08/30/2020 08/30/2020 08/30/2020 5:05 PM MANAGER MILITARY Rule Out COVID-19 09/24/2020 09/24/2020 09/24/2020 9:24 AM CDT Rule Out COVID-19 11/05/2020 11/05/2020 11/06/2020 1:09 PM CDT Rule Out COVID-19 05/11/2021 05/11/2021 05/13/2021 10:18 AM CDT Rule Out COVID-19 07/13/2021 07/13/2021 07/14/2021 3:04 PM MANAGER MILITARY Rule Out COVID-19 07/18/2021 07/18/2021 07/20/2021 1:56 PM MANAGER MILITARY COVID-19 07/18/2021 07/18/2021 08/08/2021 11:3 9 PM MANAGER MILITARY Rule Out COVID-19 12/18/2021 12/18/2021 12/19/2021 11:34 AM CDT Rule Out COVID-19 02/24/2022 02/24/2022 02/25/2022 1:08 PM CDT Rule Out COVID-19 04/26/2022 04/26/2022 04/26/2022 6:47 AM CDT Rule Out COVID-19 05/17/2022 05/17/2022 05/17/2022 10:20 PM MANAGER MILITARY Rule Out COVID-19 06/09/2022 06/09/2022 06/09/2022 9:35 AM MANAGER MILITARY COVID-19 06/09/2022 06/09/2022 06/30/2022 11:4 1 PM MANAGER MILITARY Rule Out COVID-19 11/10/2022 11/10/2022 11/11/2022 12:17 PM CDT Rule Out COVID-19 03/07/2023 03/07/2023 03/07/2023 1:20 PM CDT Rule Out COVID-19 12/26/2023 12/26/2023 12/26/2023 9:50 AM CDT Rule Out COVID-19 04/09/2024 04/09/2024 04/10/2024 6:48 PM CDT Rule Out COVID-19 10/04/2024 10/04/2024 10/05/2024 9:42 AM CDT Assessment Noted Time PHQ-9 Depression Total Score: 020 1:14 PM CDT documented as of this encounter Care Teams Semi Conductor Assembler Relationship Specialty Start Date End Date Rakesh Cid PA-C [address] [place] [address] PCP - General Physician Value Analysis Coordinator - Medical 05/14/19 04/29/20 Marija Edgar APRN CNP PCP - General Nurse Practitioner 04/30/20 04/14/23 Esha Grimm PA-C [address] [place] [phone] PCP - General Family Medicine 05/04/23 Rakesh Cid PA-C [address] [place] [address] Assigned PCP 05/06/19 03/01/20 Lita Oseguera Personal Advocate & Liaison (PAL) 02/28/20 03/27/23 Rakesh Cid PA-C [address] [place] [address] Assigned PCP 03/02/20 06/07/20 Isaura Lamar RN Personal Advocate & Liaison (PAL) Family Practice 04/03/20 04/06/20 Lita Oseguera Personal Advocate & Liaison (PAL) 04/07/20 04/29/20 Chanelle Mccann APRN CNM [address] [place] [address] 200 [place], [place] 970217 Assigned OBGYN Provider 05/02/2005/09 Lesley Guillermo W Community Health Worker 05/30/2005/12 Kyara De La Fuente, RN Specialty Web Feeder Neurology 06/04/20 03/05/21 Marija Edgar APRN ROTOR COIL TAPER Assigned PCP 06/08/20 04/29/23 Mynor Broussard MD 6363 [facility] 500 [place], [place] 969395 Assigned Surgical Provider 06/01/20 11/28/21 Keisha Dotson MD 909 [place], [place] 259745 Assigned Neuroscience Provider 06/04/20 04/01/23 Mary Mejia Financial Resource Worker 08/07/20 08/21/20 Stacey Briones, [facility] Lead Web Feeder Primary Care - CC 08/11/2012/30 Lesley Guillermo, [facility] Community Health Worker 08/11/2010/01 Mary Mejia Financial Resource Worker 09/02/20 10/06/20 Lita Oseguera Personal Advocate & Liaison (PAL) Family Medicine 09/10/20 09/21/20 Galo Burrell MD Assigned Heart and Vascular Provider 10/05/20 04/02/22 Cristina Wood Financial Resource Worker 10/07/20 10/14/20 Lesley Guillermo, [facility] Community Health Worker 10/23/2012/30 Meredith Bedoya Financial Resource Worker 10/23/20 11/23/20 Cristina Wood Financial Resource Worker 02/09/21 02/09/21 Diana Desir, [facility] [address] [place] [address] Pharmacist Pharmacist 04/17/21 Rain Galaviz PA-C [address] [place] [address] [facility] [address] Physician Value Analysis Coordinator Dermatology 04/28/21 Summer Lara MD [address] [place], [place] 150434 Assigned OBGYN Provider 05/10/2105/23 Summer Lara MD [address] [place], [place] 343854 Assigned OBGYN Provider 05/31/21 Summer Lara MD [address] [place], [place] 918[address] Assigned OBGYN Provider 05/24/2105/30 Tavia Wyatt MD [address] [place], [place] 5240[address] Dermatology 07/14/21 Johnny Murillo MD [address] [facility] [address] [place], [place] 792304 Assigned Musculoskeletal Provider 08/30/21 03/17/22 Erica Farrell APRN ROTOR COIL TAPER 6405 [facility] [address] [place], [place] 274815 Nurse Practitioner Cardiovascular Disease 09/09/21 Teresita Bean [facility] [address] [place] [phone] Pharmacist Pharmacist 09/24/21 09/29/21 Tavia Wyatt MD [address] [place] [address] 659420 Assigned Surgical Provider 11/29/21 05/07/22 Diana Desir, [facility] 3033 [place] [address] Assigned MTM Pharmacist 01/02/22 Rich Barrett MD 3033 [place] [address] Physician Ophthalmology 01/21/22 Neil Kent MD 500 [place], [place] 346175 Dermatology 02/24/22 Roney Story DPM [address] [employer] [facility] [address] [place] [address] Assigned Musculoskeletal Provider 03/20/22 08/13/22 Erica Farrell APRN ROTOR COIL TAPER 1700 [place] [address] Assigned Heart and Vascular Provider 04/03/22 04/16/22 Diana Desir, [facility] 3033 [place] [address] Assigned MTM Pharmacist 04/07/22 Jelena David OD 3305 [facility] [place] [address] Assigned Surgical Provider 05/08/22 10/08/22 Galo Burrell MD Assigned Heart and Vascular Provider 04/17/22 06/11/22 Livan Sharif MD 6405 [facility] [address] [place] [address] Cardiovascular Disease 05/14/22 Livan Sharif MD [address] [facility] W2[place] [address] Assigned Heart and Vascular Provider 06/12/22 07/23/22 Catherine Cm MD [address] [place] [address] [address] Cardiovascular Disease 07/21/22 Valery Veronica, PAUcheC [address] [place] [address] 218055 Physician Value Analysis Coordinator Dermatology 07/21/22 Catherine Cm MD [address] [place] [address] [address] Assigned Heart and Vascular Provider 07/24/22 11/05/22 [place] [address] [place] [address] Assigned Musculoskeletal Provider 08/14/22 10/08/22 Brea Quinn APRN ROTOR COIL TAPER [address] [place] [address] 154495 Nurse Practitioner Dermatology 09/21/22 Brea Quinn APRN ROTOR COIL TAPER [address] [place] [address] [place] 681652 Assigned Surgical Provider 10/09/22 05/01/24 [place] [address] [place] [address] Assigned Musculoskeletal Provider 10/09/22 05/01/24 Livan Sharif MD [address] [place] [address] Assigned Heart and Vascular Provider 11/06/22 11/12/22 Catherine Cm MD [address] [place] [address] Assigned Heart and Vascular Provider 11/13/22 05/27/23 Sydnie Martinez RN Personal Advocate & Liaison (PAL) Family Medicine 03/28/23 07/31/23 Alfonso Renteria MD 5775 [facility] 200 [place] [address] Assigned Neuroscience Provider 04/02/23 09/29/24 Cheng Todd PA-C [address] [place] [address] [id number] Assigned PCP 04/30/23 07/15/23 Radha Lomeli APRN ROTOR COIL TAPER [address] [place] [address] Assigned Heart and Vascular Provider 05/28/23 Jelena David OD [facility] [facility] [place] [address] Ophthalmology 06/15/23 Pao Joseph, VJ Personal Advocate & Liaison (PAL) Nurse 08/01/23 11/07/23 Esha Grimm PA-C [address] [place] [address] Assigned PCP 07/16/23 Valery Veronica PA-C [address] [place] [address] 825825 Physician Value Analysis Coordinator Dermatology 09/19/23 Rey Tay MD [address] [place] [address] 039495 MD Gastroenterology 09/20/23 Rocky Zepeda DO [address] [place] [address] 691795 Physician Gastroenterology 09/20/23 Philip Dumont MD [address] [place] [address] 591165 Physician Ophthalmology 09/22/23 Meredith Carrera PA-C [address] [place] [address] 670245 Assigned Gastroenterology Provider 11/01/23 Neil Kent MD [address] [address] Dermatology 11/02/23 [place] [address] [place] [address] Neurological Surgery 12/26/23 Audrey Waite PA-C [address] [place] [address] Physician Value Analysis Coordinator Dermatology 02/28/24 Valery Veronica PA-C 232766 [address] [place] [address] Physician Value Analysis Coordinator Dermatology 04/10/24 Herminia Hatch MD [address] [place] [address] Assigned Rheumatology Provider 07/02/24 Jelena David OD [address] [facility] [place] [address] Ophthalmology 08/30/24 [place] [address] [place] [address] Assigned Neuroscience Provider 09/30/24 Maru Man PA-C [address] [place] [address] Physician Value Analysis Coordinator Dermatology 10/03/24 Maru Man PA-C [address] [place] [address] Physician Value Analysis Coordinator Dermatology 10/22/24 documented as of this encounter
--- OUTSIDE RECORDS SUMMARY | 2024-11-21 04:19 | XMS_ITS | Encounter Summary ---
Author Organization [facility] Address [address] [place] [address] Care Team Providers Care Metal Box Maker Name Role Phone Lita Oseguera Unavailable Unavailable Marija Edgar APRN SHINGLE SHEARING MACHINE OPERATOR Primary Care Provider + Marija Edgar APRN SHINGLE SHEARING MACHINE OPERATOR Unavailable Mynor Broussard MD Unavailable [phone] Keisha Dotson MD Unavailable Galo Burrell MD Unavailable Unavailable Diana Desir [facility] Unavailable Rain Galaviz PA-C Unavailable Summer Lara MD Unavailable [phone] Tavia Wyatt MD Unavailable Johnny Murillo MD Unavailable Erica Farrell APRN SHINGLE SHEARING MACHINE OPERATOR Unavailable Teresiat Bean [facility] Unavailable [phone] Tavia Wyatt MD Unavailable Diana Desir [facility] Unavailable Rich Barrett MD Unavailable [phone] Neil Kent MD Unavailable Roney Story DPM Unavailable Erica Farrell INDUSTRIAL SALES REPRESENTATIVE SHINGLE SHEARING MACHINE OPERATOR Unavailable Diana Desir [facility] Unavailable [phone] Jelena David OD Unavailable [phone] Galo Burrell MD Unavailable Unavailable Livan Sharif MD Unavailable + Livan Sharif MD Unavailable + Catherine Cm MD Unavailable + Valery Veronica PA-C Unavailable [phone] Catherine Cm MD Unavailable + Johnny Murillo MD Unavailable [phone] Brea Quinn INDUSTRIAL SALES REPRESENTATIVE SHINGLE SHEARING MACHINE OPERATOR Unavailable [phone] Brea Quinn INDUSTRIAL SALES REPRESENTATIVE SHINGLE SHEARING MACHINE OPERATOR Unavailable [phone] Jose Francisco Johnson MD Unavailable Livan Sharif MD Unavailable + IsCatherine hobbs MD Unavailable + Sydnie Martinez RN Unavailable Unavailable Alfonso Renteria MD Unavailable Esha Grimm-C Primary Care Provider Cheng Todd PA-C Unavailable Radha Lomeli INDUSTRIAL SALES REPRESENTATIVE SHINGLE SHEARING MACHINE OPERATOR Unavailable [phone] Jelena David OD Unavailable Pao Joseph RN Unavailable Unavailable Esha Grimm-C Unavailable [phone] JeremíasValery damon PA-C Unavailable [phone] Rey Tay MD Unavailable Rocky Zepeda DO Unavailable Philip Dumont MD Unavailable [phone] Meredith Carrera PA-C Unavailable [phone] Neil Kent MD Unavailable Juan Pablo Emmanuel MD Unavailable Audrey Waite PA-C Unavailable [phone] Valery Veronica PA-C Unavailable [phone] Herminia Hatch MD Unavailable Jelena David OD Unavailable Juan Pablo Emmanuel MD Unavailable [phone] Maru ManC Unavailable [phone] Maru ManC Unavailable [phone] Jelena David OD Unavailable Encounter Details Date Type Department Care Team (Late st Contact Info) Description 06/01/2021 [facility] [address] [address] Diana Desir, [facility] [address] [place], [place] [id number] Social History Tobacco Use Types Packs/Day Years [...] do you attend chur or amish services? More than 4 times [...] PHQ-2 Score 0 04/02/2021 [facility] [...] in a assisted (including now)? No 08/11/2020 Napoleon Depression Scale Answer Date Recorded Napoleon [...] PM CDT Legal Sex Female 4:13 AM LIQUOR INSPECTOR Gender Identity Female 03/02/2021 5:45 PM CDT Sexual Orientation Straight 02/28/2020 12 :51 AM CDT COVID-19 Exposure Response Date Recorded In the last month, have you been in contact with someone who was confirmed or suspected to have Coronavirus / COVID-19? No / Unsure 05/11/2021 4:19 PM CDT documented as of this encounter Miscellaneous Notes * Telephone Encounter - Diana Desir, [facility] - 06/01/2021 3:43 PM CST Called patient and reassured 50 mg dose increase in sertraline is typical and okay to do. She will closely monitor changes in mental health over next couple weeks. Answered all questions. Diana Desir, PharmD Medication Therapy Management Provider, [facility] Pager: [phone] OR INSPECTOR documented in this encounter Plan of Treatment Upcoming Encounters Date Type Department Care Team (Late st Contact Info) Description 11/21/2024 7:00 AM CDT Office Visit [facility] [address] [phone] Maru Man PA-C [address] [place] [phone] 12/20/2024 2:30 PM CDT Office Visit [facility] [address] [place] [address] Esha Grimm PA-C [address] [place] [phone] 04/16/2025 11:00 AM CDT Virtual Visit [facility] [address] [phone] Meredith Carrera PA-C [address] [place] [address] [phone] documented as of this encounter Visit Diagnoses Not on filedocumented in this encounter Additional Health Concerns Infection Onset Date Last Indicated Resolved Time Rule Out COVID-19 07/13/2021 07/13/2021 07/14/2021 3:04 PM LIQUOR INSPECTOR Rule Out COVID-19 07/18/2021 07/18/2021 07/20/2021 1:56 PM LIQUOR INSPECTOR COVID-19 07/18/2021 07/18/2021 08/08/2021 11:3 9 PM LIQUOR INSPECTOR Rule Out COVID-19 12/18/2021 12/18/2021 12/19/2021 11:34 AM CDT Rule Out COVID-19 02/24/2022 02/24/2022 02/25/2022 1:08 PM CDT Rule Out COVID-19 04/26/2022 04/26/2022 04/26/2022 6:47 AM CDT Rule Out COVID-19 05/17/2022 05/17/2022 05/17/2022 10:20 PM LIQUOR INSPECTOR Rule Out COVID-19 06/09/2022 06/09/2022 06/09/2022 9:35 AM LIQUOR INSPECTOR COVID-19 06/09/2022 06/09/2022 06/30/2022 11:4 1 PM LIQUOR INSPECTOR Rule Out COVID-19 11/10/2022 11/10/2022 11/11/2022 [...] as of this encounter Care Teams Metal Box Maker Relationship Specialty Start Date End Date Marija Edgar APRN CNP PCP - General Nurse Practitioner 04/30/20 04/14/23 Esha Grimm PA-C [address] [place] [address] PCP - General Family Medicine 05/04/23 Lita Oseguera Personal Advocate & Liaison (PAL) 02/28/20 03/27/23 Marija Edgar APRN SHINGLE SHEARING MACHINE OPERATOR Assigned PCP 06/08/20 04/29/23 Mynor Broussard MD [address] [facility] [address] [place] [address] Assigned Surgical Provider 06/01/20 11/28/21 Keisha Dotson MD [address] [place], [place] [phone] Assigned Neuroscience Provider 06/04/20 04/01/23 Galo Burrell MD Assigned Heart and Vascular Provider 10/05/20 04/02/22 [facility] [address] [place] [address] Pharmacist Pharmacist 04/17/21 Rain Galaviz PA-C [address] [facility] [address] [place] [address] Physician Perforator Typist Dermatology 04/28/21 Summer Lara MD [address] [place] [address] Assigned OBGYN Provider 05/31/21 2 Tavia Wyatt MD [address] [place] [address] 444174 Dermatology 07/14/21 Johnny Murillo MD [facility] [place] [address] Assigned Musculoskeletal Provider 08/30/21 03/17/22 Erica Farrell APRN SHINGLE SHEARING MACHINE OPERATOR [address] [facility] [address] [place] [address] Nurse Practitioner Cardiovascular Disease 09/09/21 [facility] [address] [facility] [address] [place], [place] [phone] Pharmacist Pharmacist 09/24/21 09/29/21 Tavia Wyatt MD [address] [place] [address] Assigned Surgical Provider 11/29/21 05/07/22 [facility] [address] [place] [address] Assigned MTM Pharmacist 01/02/22 Rich Barrett MD [address] [place] [address] Physician Ophthalmology 01/21/22 Neil Kent MD [address] [place] [address] Dermatology 02/24/22 Roney Story DPM [address] [facility] [address] [place] [address] Assigned Musculoskeletal Provider 03/20/22 08/13/22 Erica Farrell APRN SHINGLE SHEARING MACHINE OPERATOR [address] [place] [address] Assigned Heart and Vascular Provider 04/03/22 04/16/22 Diana Desir, [facility] [address] [place] [address] Assigned MTM Pharmacist 04/07/22 Jelena David OD [address] [facility] [place] [address] Assigned Surgical Provider 05/08/22 10/08/22 Galo Burrell MD Assigned Heart and Vascular Provider 04/17/22 06/11/22 Livan Sharif MD [address] [address] [place] [address] Cardiovascular Disease 05/14/22 Livan Sharif MD [address] [address] [place] [address] Assigned Heart and Vascular Provider 06/12/22 07/23/22 Catherine Cm MD [address] [address] [place] 398[address] Cardiovascular Disease 07/21/22 Valery Veronica, PA-C [address] [place], [place] [address] Physician Perforator Typist Dermatology 07/21/22 Catherine Cm MD [address] [place] [phone] Assigned Heart and Vascular Provider 07/24/22 11/05/22 Johnny Murillo MD [facility] [address] [address] Assigned Musculoskeletal Provider 08/14/22 10/08/22 Brea Quinn APRN SHINGLE SHEARING MACHINE OPERATOR [address] [place] [address] Nurse Practitioner Dermatology 09/21/22 Brea Quinn APRN SHINGLE SHEARING MACHINE OPERATOR [address] [place] [address] Assigned Surgical Provider 10/09/22 05/01/24 [place] [address] [address] Assigned Musculoskeletal Provider 10/09/22 05/01/24 Livan Sharif MD [address] [facility] [address] [place] [address] Assigned Heart and Vascular Provider 11/06/22 11/12/22 Catherine Cm MD [address] [place] [place] [phone] [place] [address] Assigned Heart and Vascular Provider 11/13/22 05/27/23 Sydnie Martinez RN Personal Advocate & Liaison (PAL) Family Medicine 03/28/23 07/31/23 Alfonso Renteria MD [address] [facility] [address] [place], [place] 2805[address] Assigned Neuroscience Provider 04/02/23 09/29/24 Cheng Todd PA-C [address] [place] [address] [phone] Assigned PCP 04/30/23 07/15/23 Radha Lomeli APRN SHINGLE SHEARING MACHINE OPERATOR [address] [facility] [address] [place] [address] Assigned Heart and Vascular Provider 05/28/23 Jelena David OD [address] [facility] [place] [address] MD Ophthalmology 06/15/23 Pao Joseph, VJ Personal Advocate & Liaison (PAL) Nurse 08/01/23 11/07/23 Esha Grimm PA-C [address] [place] [phone] Assigned PCP 07/16/23 Valery Veronica PA-C [address] [place] [address] Physician Perforator Typist Dermatology 09/19/23 Rey Tay MD [address] [place] [address] 694235 Gastroenterology 09/20/23 Rocky Zepeda DO [address] [place] [address] [phone] Physician Gastroenterology 09/20/23 Philip Dumont MD [address] [place] [address] [phone] Physician Ophthalmology 09/22/23 Meredith Carrera PA-C [address] [place], [place] [phone] Assigned Gastroenterology Provider 11/01/23 eNil Kent MD [address] [place] [address] Dermatology 11/02/23 [place] [address] [facility] [place], [place] [phone] Neurological Surgery 12/26/23 Audrey Waite PA-C [address] [place], [place] [address] Physician Perforator Typist Dermatology 02/28/24 Valery Veronica PA-C 223023 [address], [place] [address] Physician Perforator Typist Dermatology 04/10/24 Herminia Hatch MD [address] [place] [address] [phone] Assigned Rheumatology Provider 07/02/24 Jelena David OD [address] [place] [address] [place] [address] Ophthalmology 08/30/24 [place] [address] [place] [address] Assigned Neuroscience Provider 09/30/24 Maru Man PA-C [address] [place] [address] Physician Perforator Typist Dermatology 10/03/24 Maru Man PA-C [address] [place] [address] Physician Perforator Typist Dermatology 10/22/24 Jelena David OD [address] [place] [address] [place] [address] Assigned Surgical Provider 10/31/24 documented as of this encounter
--- OUTSIDE RECORDS SUMMARY | 2024-11-21 04:19 | XMS_ITS | Clinical Summary ---
Author Organization [employer] [facility] Address [facility] [place] [address] Care Team Providers Care Silverer Name Role Phone Pcp, No Primary Care Provider Unavailabl e Clinic, No Pcp Or Unavailable Unavailable Allergies Active Allergy Reactions Criticality Noted Date Comments Vancomycin Other - Describe In Comment Field Medications biotin-silicon oykv-C-pljbyhyh 3,000 mcg -100 mg-50 mg TbER Take [...] Department Care Team Description 08/29/2024 Orders Only [facility] [place] [id number] [address] Ernestina Toribio MD 1 scan: (1-Ord) 08/28/2024 08/28/2024 3:35 PM [employer]ETING [employer] Office Visit [facility] [place] [address] [address] Ernestina Toribio MD Lightheaded (Started today ) 08/28/2024 Orders Only [facility] [address] [place] [phone] Ernestina Toribio MD Lab 08/28/2024 Travel from [...] on file Legal Sex Female 2:29 PM [employer]ETING [employer] Gender Identity Not on file Sexual Orientation Not on file Obstetrics History Last Filed Vital Signs Vital Sign Reading Time Taken Comments Blood Pressure 111/58 08/28/2024 3:42 PM [employer] Pulse 72 08/28/2024 3:42 PM [employer] Temperature 36.4 C (97.5 F) 08/28/2024 3:42 PM [employer] Respiratory Rate 15 08/28/2024 3:42 PM [employer] Oxygen Saturation 99% 08/28/2024 3:42 PM [employer] Inhaled Oxygen Concentration - - Weight 90.7 kg (200 lb) 08/28/2024 3:42 PM [employer] Height 166.5 cm (5' 5.55) 08/31/2018 11:46 [...] BY NAAT (LESIONS) Routine 08/28/2024 5:57 PM [employer] Sore throat Routine screening for STI (sexually transmitted infection) TREPONEMA PALLIDUM Routine 08/28/2024 5: 15 PM [employer] Routine screening for STI (sexually transmitted infection) HSV TYPE SPEC IGG GENESIS Routine 08/28/2024 5:13 PM [employer] Sore throat ANTI HIV 1/2 Routine 08/28/2024 4:58 PM [employer] Routine screening for STI (sexually transmitted infection) ANTI HCV Routine 08/28/2024 4:58 PM [employer] Routine screening for STI (sexually transmitted infection) HBSAG (HBS) Routine 08/28/2024 4:58 PM [employer] Routine screening for STI (sexually transmitted infection) SC BLOOD COUNT COMPLETE AUTO&AUTO DIFRNTL WBC Routine 08/28/2024 4:57 PM [employer] Dizzy ISTAT CHEM 8 Routine 08/28/2024 4:57 PM [employer]ING [employer] Dizzy UA W/ SEDIMENT EXAM REFLEXED PER CRITERIA STAT 08/28/2024 4:40 PM [employer] Urine frequency TRICHOMONAS, ANDREIA, AND BACTERIAL VAGINOSIS BY [facility] Routine 08/28/2024 4:35 PM [employer] Routine screening for STI (sexually transmitted infection) GC CHLAMYDIA TRACH PROBE Routine 08/28/2024 4:35 PM [employer] Routine screening for STI (sexually transmitted infection) EKG 12 LEAD Routine 08/28/2024 12:00 AM [employer] Chest tightness from Last 3 Months Results * 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 (Lesions) [[id number]] (08/28/2024 5:57 PM [employer]ING [employer]) HSV 1 Negative Negative 08/29/2024 10:39 AM [employer]ETING [employer] [facility] HSV 2 Negative Negative 08/29/2024 10:39 AM MARKETING [employer] [facility] Other LESION SPECIMEN / Unknown Non-Blood / Unknown 08/28/2024 5:57 PM [employer]ING [employer] 08/28/2024 5:57 PM MARKETING ASS[employer] [facility] - 08/29/2024 10:39 AM [employer]ETING [employer] Results from the Aptima HSV 1 & 2 assay should be interpreted in conjunction with other clinical data available to the clinician. A negative Aptima HSV 1 & 2 assay result does not preclude a possible infection because results are dependent on adequate specimen collection. us Ernestina Toribio MD MICROBIOLOGY Final Result Performing Organization Address City/[facility]/ZIP Co de Phone Number [facility] [address] [place] [address], [place] * TREPONEMA PALLIDUM [29981.1] (08/28/2024 5:15 PM [employer]ING [employer]) TREPONEMA PALLIDUM Non-Reacti ve Non-Reacti ve 08/28/2024 10:36 PM [employer]ETING [employer] [facility] Blood BLOOD SPECIMEN / Unknown [facility] / Unknown 08/28/2024 5:15 PM [employer]ING [employer] 08/28/2024 5:58 PM [employer]ING [employer] us Ernestina Toribio MD SEND OUTS Final Result Performing Organization Address [facility] Co de Phone Number [facility] [address] [place] [address], [place] * HSV TYPE SPEC IGG GENESIS (08/28/2024 5:13 PM [employer]ING [employer]) HSV 1 IGG, TYPE SPECIFIC AB <0.90 [...] screening. For additional information, please refer to http://[employer]form.[employer]/faq/CQV467 (This link is being provided for informational/ educational purposes only.) Blood BLOOD SPECIMEN / Unknown 08/28/2024 5:13 PM [employer]ING [employer] 08/28/2024 5:13 PM [employer]ING [employer] Ernestina Toribio MD SEND OUTS Final Result Performing Organization Address [facility] de Phone Number [employer] [facility] [address] [place] [address], [facility] [address] [place] [address] * HBSAG (HBS) [72044.2] (08/28/2024 4:58 PM [employer]ETING [employer]) HEPATITIS B SURFACE ANTIGEN NON-REACTI VE NON-REACTI VE [facility] Comment: For additional information, please refer to http://Adform.[employer]/faq/SIZ482 (This link is being provided for informational/ educational purposes only.) Blood BLOOD SPECIMEN / Unknown 08/28/2024 4:58 PM MARKETING [employer] 08/28/2024 4:58 PM [employer]ING [employer] Ernestina Toribio MD SEND OUTS Final Result Performing Organization Address [facility]/ZIP Co de Phone Number [employer] [facility] [address] [place] [address], [place] [phone] [facility] [address] [place] [address] * ANTI HCV [63167.2] (08/28/2024 4:58 PM MARKETING [employer]) HEPATITIS C ANTIBODY NON-REACTI VE NON-REACT TAE [facility] Comment: HCV antibody was non-reactive. There is no laboratory evidence of HCV infection. In most cases, no further action is required. However, if recent HCV exposure is suspected, a test for HCV RNA (test code 41150) is suggested. For additional information please refer to http://[employer]form[employer]/faq/RFR17o4 (This link is being provided for informational/ educational purposes only.) Blood BLOOD SPECIMEN / Unknown 08/28/2024 4:58 PM [employer]ING [employer] 08/28/2024 4:58 PM MARKETING [employer] Ernestina Toribio MD SEND OUTS Final Result [employer] [facility] [address] [place] [address], [facility] [address] [place] [address] * ANTI HIV 1/2 [20878.0] (08/28/2024 4:58 PM MARKETING [employer]) HIV AG/AB, 4TH GEN NON-REACT TAE NON-REACT TAE [facility] Comment: HIV-1 antigen and HIV-1/HIV-2 antibodies were [...] purpose. For additional information please refer to http://Adform.[employer]/faq/WRM078 (This link is being provided for informational/ educational purposes only.) The performance of this assay has not been clinically validated in patients less than 2 years old. Blood BLOOD SPECIMEN / Unknown 08/28/2024 4:58 PM [employer]ETING [employer] 08/28/2024 4:58 PM [employer]ETING ASS[employer] Ernestina Toribio MD SEND OUTS Final Result [facility] [address] [place] [address], [place] [phone] [facility] [address] [place] [address] * IN CLINIC Chem 8 (08/28/2024 4:57 PM [employer]ETING [employer]) POCT, SODIUM, ISTAT 139 138 - 146 mmol/L [facility]) POCT, POTASSIUM, ISTAT 3.7 3.5 - 4.9 mmol/L [facility]) POCT, CHLORIDE, ISTAT 101 98 - 109 mmol/L [facility]) POCT, CARBON DIOXIDE, ISTAT 26 24 - 29 mmol/L [facility]) POCT, GLUCOSE ISTAT 77 70 - 105 mg/dL [facility]) POCT, UREA NITROGEN (BUN) ISTAT 14 8 - 26 mg/dL [facility]) POCT,CREATININE , ISTAT 0.9 0.6 - 1.3 mg/dL [facility]) POCT, CALCIUM, IONIZED, ISTAT 4.9 4.5 - 5.3 mg/dL [facility]) Blood BLOOD SPECIMEN / Unknown 08/28/2024 4:57 PM [employer]ETING [employer] 08/28/2024 4:57 PM MARKETING ASS[employer] us Ernestina Toribio MD CHEMISTRY Final Result [facility] [address] [place] [address], [place] [facility] ([facility]gent Care) [address] [place] [address] * (ABNORMAL) IN CLINIC CBC and Differential (08/28/2024 4:57 PM MARKETING ASSIST[employer]) Pathologist [facility] WHITE BLOOD CELL COUNT 6.5 3.8 - 10.8 Thousand/u L [facility] (Urgent Care) RED BLOOD CELL COUNT 4.71 3.80 - 5.10 Million/uL [facility]) HEMOGLOBIN 12.1 11.7 - 15.5 g/dL [facility] (Urgent Care) HEMATOCRIT 38.6 35.0 - 45.0 % [facility]) MCV 82.0 80.0 - 100.0 fL [facility]) MCH 25.7(L) 27.0 - 33.0 pg [facility] ([facility] Care) MCHC 31.3(L) 32.0 - 36.0 g/dL [facility]Urgent Care) Comment: For adults, a slight decrease in the calculated MCHC value (in the range of 30 to 32 g/dL) is most likely not clinically significant; however, it should be interpreted with caution in correlation with other red cell parameters and the patient's clinical condition. RDW 12.5 11.0 - 15.0 % [facility]Urgent [facility]) PLATELET COUNT 246 140 - 400 Thousand/u L [facility]) MPV 10.2 7.5 - 12.5 fL [facility]Urgent [facility]) ABSOLUTE NEUTROPHILS 3,816 1,500 - 7,800 cells/uL [facility] ([facility]gent Care) ABSOLUTE LYMPHOCYTES 2,009 850 - 3,900 cells/uL [facility]) ABSOLUTE MONOCYTES 371 200 - 950 cells/uL [facility]) ABSOLUTE EOSINOPHILS 286 15 - 500 cells/uL [facility]) ABSOLUTE BASOPHILS 20 0 - 200 cells/uL [facility] ([facility]) NEUTROPHILS 58.7 % [facility] (Urgent Care) LYMPHOCYTES 30.9 % [facility] ([facility]) MONOCYTES 5.7 % [facility]) EOSINOPHILS 4.4 % [facility] ([facility]) BASOPHILS 0.3 % [facility]) Blood BLOOD SPECIMEN / Unknown 08/28/2024 4:57 PM [employer] 08/28/2024 4:57 PM [employer] us Ernestina Toribio MD HEMATOLOGY Final Result Performing Organization Address [facility] Co de Phone Number [facility] [address] [place] [address], [facility] [address] [place] [address] * STAT Urinalysis w/ reflex to Microscopic (08/28/2024 4:40 PM [employer]ETING [employer]) COLOR YELLOW YELLOW [facility] [...] URINE SPECIMEN / Unknown 08/28/2024 4:40 PM MARKETING [employer] 08/28/2024 4:41 PM [employer]ETING [employer] us Ernestina Toribio MD URINE Final Result Performing Organization Address [facility]/ZIP Co de Phone Number [facility] [address] [place] [address], [place] [facility] ([facility]gent Care) [address] [place] [address] * (ABNORMAL) Vaginal-TRICHOMONAS, ANDREIA, AND BACTERIAL VAGINOSIS BY [facility] (08/28/2024 4:35 PM [employer]ETING [employer]) ANDREIA SPECIES Positive(A) Negative 08/29/19 11:18 AM MARKETING ASS[employer] [facility] ANDREIA GLABRATA Negative Negative 08/29/2024 11:18 AM MARKETING ASS[employer] [facility] TRICHOMONAS VVA Negative Negative 11:18 AM [employer]ETING [employer] [facility] BACTERIAL VAGINOSIS Negative Negative 08/29/2024 11:18 AM [employer]ETING [employer] [facility] Other VAGINAL SWAB / Unknown Non-Blood / Unknown 08/28/2024 4:35 PM [employer] 08/28/2024 4:36 PM [employer] us Ernestina Toribio MD MICROBIOLOGY Final Result Performing Organization Address City/[facility]/ZIP Co de Phone Number [facility] [address] [place] [address], [place] * Vaginal GC CHLAMYDIA TRACH PROBE (08/28/2024 4:35 PM [employer]) CHLAMYDIA PROBE Negative 11:45 AM MARKETING ASS[employer] [facility] N GONORRHOEAE PROBE Negative 08/29/2024 11:45 AM MARKETING ASS[employer] [facility] Other VAGINAL SWAB / Unknown Non-Blood / Unknown 08/28/2024 4:35 PM [employer]ING [employer] 08/28/2024 4:36 PM [employer] us Ernestina Toribio MD MICROBIOLOGY Final Result [facility] [address] [place] [address], [place] * EKG 12 LEAD (08/28/2024 12:00 AM [employer]) us Ernestina Toribio MD EKG ORD Final Result from Last [address] [facility] Care Teams Silverer Relationship Specialty Start Date End Date Pcp, No . PCP - General 03/25/24 Clinic, No Pcp Or . 03/25/24
--- OUTSIDE RECORDS SUMMARY | 2024-11-21 04:19 | XMS_ITS | Encounter Summary ---
Author Organization [facility] Address [address] [place] [address] Care Team Providers Care Commonwealth Attorney Name Role Phone Lita Oseguera Unavailable Unavailable Marija Edgar APRN DIVISION HEAD Primary Care Provider + Marija Edgar APRN DIVISION HEAD Unavailable Mynor Broussard MD Unavailable [phone] Keisha Dotson MD Unavailable Galo Burrell MD Unavailable Unavailable Diana Desir [facility] Unavailable [phone] Rain Galaviz PA-C Unavailable Summer Lara MD Unavailable [phone] Tavia Wyatt MD Unavailable Johnny Murillo MD Unavailable Erica Farrell APRN DIVISION HEAD Unavailable Teresita Bean [facility] Unavailable [phone] Tavia Wyatt MD Unavailable Diana Desir [facility] Unavailable Rich Barrett MD Unavailable [phone] Neil Kent MD Unavailable Roney Story DPM Unavailable Erica Farrell REINFORCING METAL WORKER DIVISION HEAD Unavailable Diana Desir [facility] Unavailable [phone] Jelena David OD Unavailable Galo Burrell MD Unavailable Unavailable Livan Sharif MD Unavailable + Livan Sharif MD Unavailable + Catherine Cm MD Unavailable + Valery Veronica PA-C Unavailable [phone] Catherine Cm MD Unavailable + Johnny Murillo MD Unavailable [phone] Brea Quinn REINFORCING METAL WORKER DIVISION HEAD Unavailable [phone] Brea Quinn REINFORCING METAL WORKER DIVISION HEAD Unavailable [phone] Jose Francisco Johnson MD Unavailable Livan Sharif MD Unavailable + IsCatherine hobbs MD Unavailable + Sydnie Martinez RN Unavailable Unavailable Alfonso Renteria MD Unavailable Esha Grimm-C Primary Care Provider Cheng Todd PA-C Unavailable Radha Lomeli REINFORCING METAL WORKER DIVISION HEAD Unavailable [phone] Jelena David OD Unavailable [phone] Pao Joseph RN Unavailable Unavailable Esha Grimm-C Unavailable JeremíasValery damon PA-C Unavailable [phone] Rey Tay MD Unavailable Rocky Zepeda DO Unavailable Philip Dumont MD Unavailable [phone] Meredith Carrera PA-C Unavailable [phone] Neil Kent MD Unavailable Juan Pablo Emmanuel MD Unavailable [phone] Audrey Waite PA-C Unavailable [phone] Valery Veronica PA-C Unavailable [phone] Herminia Hatch MD Unavailable Jelena David OD Unavailable Juan Pablo Emmanuel MD Unavailable [phone] Maru ManC Unavailable [phone] Maru ManC Unavailable [phone] Jelena David OD Unavailable Encounter Details Date Type Department Care Team (Late st Contact Info) Description 07/14/2021 MyC Medical Advice [address] [address] Lauren Gan, RN Social History [...] you attend formerly [facility] or [employer] services? More than 4 times [...] 0 04/02/2021 [facility] - Occupational Stress Questionnaire Answer Date [...] in a penitentiary (including now)? No 08/11/2020 Nilwood Depression Scale Answer Date Recorded Nilwood Depression Score 5 01/14/2021 Last EPDS Self Harm Result Not on file 01/14 Education Answer Date Recorded What is the highest level of school you have completed or the highest degree you have received? 12th grade 08/07/2020 Comments No Sex and Gender Information Value Date Recorded Sex Assigned at Female 03/02/2021 5:45 PM CDT Legal Sex Female 4:13 AM MARKETING MANAGER Gender Identity Female 03/02/2021 5:45 PM CDT Sexual Orientation Straight 02/28/2020 12 :51 AM CDT COVID-19 Exposure Response Date Recorded In the last month, have you been in contact with someone who was confirmed or suspected to have Coronavirus / COVID-19? Yes 07/15/2021 12:15 PM MARKETING MANAGER documented as of this encounter Plan of Treatment Upcoming Encounters Date Type Department Care Team ([facility] st Contact Info) Description 11/21/2024 7:00 AM CDT Office Visit [facility] [address] [phone] Maru Man PA-C [address] [address] 12/20/2024 2:30 PM CDT Office Visit [facility] [address] [place] [address] Esha Grimm PA-C [address] [place] [address] 04/16/2025 11:00 AM CDT Virtual Visit [facility] [address] 4th [place] [phone] Meredith Carrera PA-C [address] [place] [address] documented as of this encounter Visit Diagnoses Not on filedocumented in this encounter Additional Health Concerns Infection Onset Date Last Indicated Resolved Time Rule Out COVID-19 07/13/2021 07/13/2021 07/14/2021 3:04 PM MARKETING MANAGER Rule Out COVID-19 07/18/2021 07/18/2021 07/20/2021 1:56 PM MARKETING MANAGER COVID-19 07/18/2021 07/18/2021 08/08/2021 11:3 9 PM MARKETING MANAGER Rule Out COVID-19 12/18/2021 12/18/2021 12/19/2021 11:34 AM CDT Rule Out COVID-19 02/24/2022 02/24/2022 02/25/2022 1:08 PM CDT Rule Out COVID-19 04/26/2022 04/26/2022 04/26/2022 6:47 AM CDT Rule Out COVID-19 05/17/2022 05/17/2022 05/17/2022 10:20 PM MARKETING MANAGER Rule Out COVID-19 06/09/2022 06/09/2022 06/09/2022 9:35 AM MARKETING MANAGER COVID-19 06/09/2022 06/09/2022 06/30/2022 11:4 1 PM MARKETING MANAGER Rule Out COVID-19 11/10/2022 11/10/2022 11/11/2022 [...] documented as of this encounter Care Teams Commonwealth Attorney Relationship Specialty Start Date End Date Marija Edgar APRN DIVISION HEAD PCP - General Nurse Practitioner 04/30/20 04/14/23 Esha Grimm PA-C [address] [place] [phone] PCP - General Family Medicine 05/04/23 Lita Oseguera Personal Advocate & Liaison (PAL) 02/28/20 03/27/23 Marija Edgar APRN DIVISION HEAD Assigned PCP 06/08/20 04/29/23 Mynor Broussard MD [address] [address] Assigned Surgical Provider 06/01/20 11/28/21 Keisha Dotson MD 9 [place] [address] Assigned Neuroscience Provider 06/04/20 04/01/23 Galo Burrell MD Assigned Heart and Vascular Provider 10/05/20 04/02/22 Diana Desir, [facility] [address] [place] [address] Pharmacist Pharmacist 04/17/21 Rain Galaviz PA-C [address] [place] [address] [place] [address] Physician Picker Box Operator Dermatology 04/28/21 Summer Lara MD [address] [place], [place] 16[address] Assigned OBGYN Provider 05/31/21 2 Tavia Wyatt MD [address] [place], [place] [phone] Dermatology 07/14/21 Johnny Murillo MD [address] [place], [place] 224194 Assigned Musculoskeletal Provider 08/30/21 03/17/22 Erica Farrell APRN DIVISION HEAD [address] [facility] [address] [place] [address] Nurse Practitioner Cardiovascular Disease 09/09/21 Teresita Bean, [facility] [address] [place] [address] Pharmacist Pharmacist 09/24/21 09/29/21 Tavia Wyatt MD [address] [place] [address] Assigned Surgical Provider 11/29/21 05/07/22 Diana Desir, [facility] 3033 [place] [address] Assigned MTM Pharmacist 01/02/22 Rich Barrett MD [address] [place] [address] 145756 Physician Ophthalmology 01/21/22 Neil Kent MD 500 [place], [place] 290105 Dermatology 02/24/22 [place] [address] [facility] [address] [place] [address] Assigned Musculoskeletal Provider 03/20/22 08/13/22 Erica Farrell APRN DIVISION HEAD 1700 [place] [address] Assigned Heart and Vascular Provider 04/03/22 04/16/22 Diana Desir, [facility] [address] [place] [address] Assigned MTM Pharmacist 04/07/22 Jel[place] David [place] [address] [facility] [address] Assigned Surgical Provider 05/08/22 10/08/22 Galo Burrell MD Assigned Heart and Vascular Provider 04/17/22 06/11/22 Livan Sharif MD [address] [facility] [address] [place] [address] Cardiovascular Disease 05/14/22 Livan Sharif MD [address] [facility] [address] [place] [address] Assigned Heart and Vascular Provider 06/12/22 07/23/22 Catherine Cm MD [address] [facility] [address] [place] [address] Cardiovascular Disease 07/21/22 Valery Veronica, PA-C [address] [place] [address] Physician Picker Box Operator Dermatology 07/21/22 Catherine Cm MD [address] [facility] [address] [place] [address] Assigned Heart and Vascular Provider 07/24/22 11/05/22 Johnny Murillo MD [address] [place] [address] Assigned Musculoskeletal Provider 08/14/22 10/08/22 Brea Quinn APRN DIVISION HEAD [address] [place] [address] Nurse Practitioner Dermatology 09/21/22 Brea Quinn APRN DIVISION HEAD [address] [place], [place] [address], [place] [address] Assigned Surgical Provider 10/09/22 05/01/24 [place] [address] [place] [address] Assigned Musculoskeletal Provider 10/09/22 05/01/24 Livan Sharif MD [address] [facility] [address] [place] [address] Assigned Heart and Vascular Provider 11/06/22 11/12/22 Catherine Cm MD [address] [facility] [place] [address] [place] [address] Assigned Heart and Vascular Provider 11/13/22 05/27/23 Sydnie Martinez RN Personal Advocate & Liaison (PAL) Family Medicine 03/28/23 07/31/23 Alfonso Renteria MD 5775 [facility] 200 [place] [address] Assigned Neuroscience Provider 04/02/23 09/29/24 Cheng Todd PA-C [address] [place] [address] Assigned PCP 04/30/23 07/15/23 Radha Lomeli APRN DIVISION HEAD [address] [place] [address] Assigned Heart and Vascular Provider 05/28/23 Jelena David OD [address] [facility] [place] [address] MD Ophthalmology 06/15/23 Pao Joseph, RN Personal Advocate & Liaison (PAL) Nurse 08/01/23 11/07/23 Esha Grimm PA-C [address] [place] [phone] Assigned PCP 07/16/23 Valery Veronica PA-C [address] [place] [address] 530605 Physician Picker Box Operator Dermatology 09/19/23 Rey Tay MD [address] [place] [address] 224675 MD Gastroenterology 09/20/23 Rocky Zepeda DO [address] [place] [address] 893095 Physician Gastroenterology 09/20/23 Philip Dumont MD [address] [place] [address] 279785 Physician Ophthalmology 09/22/23 Meredith Carrera PA-C [address] [place] [address] 056605 Assigned Gastroenterology Provider 11/01/23 Neil Kent MD [address] [place] [address] 166410 Dermatology 11/02/23 [place] [address] [place] [address] Neurological Surgery 12/26/23 Audrey Waite PA-C 500 [place] [address] Physician Picker Box Operator Dermatology 02/28/24 Valery Veronica PA-C [address] [place] [address] Physician Picker Box Operator Dermatology 04/10/24 Herminia Hatch MD [address] [place] [address] Assigned Rheumatology Provider 07/02/24 Jelena David OD [address] [place] [address] [place] [address] Ophthalmology 08/30/24 [place] [address] [place] [address] Assigned Neuroscience Provider 09/30/24 Maru Man PA-C [address] [place] [address] Physician Picker Box Operator Dermatology 10/03/24 Maru Man PA-C [address] [place] [address] Physician Picker Box Operator Dermatology 10/22/24 Jelena David OD [address] [place] [address] [place] [address] Assigned Surgical Provider 10/31/24 documented as of this encounter
--- OUTSIDE RECORDS SUMMARY | 2024-11-21 04:19 | XMS_ITS | Encounter Summary ---
Author Organization [facility] Address [address] [place] [address] Care Team Providers Care Edge Banding Off Bearer Name Role Phone Lita Oseguera Unavailable Unavailable Marija Edgar APRN PLASTER MIXER Primary Care Provider + Marija Edgar APRN PLASTER MIXER Unavailable [phone] Mynor Broussard MD Unavailable [phone] Keisha Dotson MD Unavailable Galo Burrell MD Unavailable Unavailable Diana Desir [facility] Unavailable Rain Galaviz PA-C Unavailable [phone] Summer Lara MD Unavailable [phone] Tavia Wyatt MD Unavailable Johnny Murillo MD Unavailable Erica Farrell APRN PLASTER MIXER Unavailable Teresita Bean [facility] Unavailable [phone] Tavia Wyatt MD Unavailable Diana Desir [facility] Unavailable Rich Barrett MD Unavailable [phone] Neil Kent MD Unavailable Roney Story DPM Unavailable Erica Farrell ENGAGEMENT LEAD PLASTER MIXER Unavailable Diana Desir [facility] Unavailable [phone] Jelena David OD Unavailable [phone] Galo Burrell MD Unavailable Unavailable Livan Sharif MD Unavailable + Livan Sharif MD Unavailable + Catherine Cm MD Unavailable + Valery Veronica PA-C Unavailable [phone] Catherine Cm MD Unavailable + Johnny Murillo MD Unavailable [phone] Brea Quinn ENGAGEMENT LEAD PLASTER MIXER Unavailable [phone] Brea Quinn ENGAGEMENT LEAD PLASTER MIXER Unavailable [phone] Jose Francisco Johnson MD Unavailable Livan Sharif MD Unavailable + IsCatherine hobbs MD Unavailable + Sydnie Martinez RN Unavailable Unavailable Alfonso Renteria MD Unavailable Esha Grimm-C Primary Care Provider Cheng Todd PA-C Unavailable Radha Lomeli ENGAGEMENT LEAD PLASTER MIXER Unavailable [phone] Jelena David OD Unavailable Pao Joseph RN Unavailable Unavailable Esha Grimm-C Unavailable [phone] JeremíasValery damon PA-C Unavailable [phone] Rey Tay MD Unavailable Rocky Zepeda DO Unavailable Philip Dumont MD Unavailable [phone] Meredith Carrera-C Unavailable [phone] Neil Kent MD Unavailable Juan Pablo Emmanuel MD Unavailable [phone] Audrey Waite PA-C Unavailable [phone] Valery Veronica-C Unavailable [phone] Herminia Hatch MD Unavailable Jelena David OD Unavailable Juan Pablo Emmanuel MD Unavailable [phone] Maru Man PA-C Unavailable [phone] Maru Man PA-C Unavailable [phone] Encounter Details Date Type Department Care Team [...] Answer Date Recorded PHQ-2 Score 1 [facility]/24/20[facility] [...] exercise at this level? 20 min 05/07/2024 [place] Depression Scale Answer Date Recorded [place] [...] PM CDT Legal Sex Female 4:13 AM UNIX ADMINISTRATOR Gender Identity Female 03/02/2021 5:45 PM [...] 11/21/2024 7:00 AM CDT Office Visit [address] [address] Maru Man PA-C [address] [place] [address] 12/20/2024 2:30 PM CDT Office Visit [facility] [address] [place] [address] Esha Grimm PA-C [address] [place] [address] 04/16/2025 11:00 AM CDT Virtual Visit [facility] [address]th [place] [phone] Meredith Carrera PA-C 909 [place] [address] documented as of this encounter Visit Diagnoses Not on filedocumented in this encounter Additional Health Concerns Infection Onset Date Last Indicated Resolved Time COVID-19 07/18/2021 07/18/2021 08/08/2021 11:3 9 PM UNIX ADMINISTRATOR Rule Out COVID-19 12/18/2021 12/18/2021 12/19/2021 11:34 AM CDT Rule Out COVID-19 02/24/2022 02/24/2022 02/25/2022 1:08 PM CDT Rule Out COVID-19 04/26/2022 04/26/2022 04/26/2022 6:47 AM CDT Rule Out COVID-19 05/17/2022 05/17/2022 05/17/2022 10:20 PM UNIX ADMINISTRATOR Rule Out COVID-19 06/09/2022 06/09/2022 06/09/2022 9:35 AM UNIX ADMINISTRATOR COVID-19 06/09/2022 06/09/2022 06/30/2022 11:4 1 PM UNIX ADMINISTRATOR Rule Out COVID-19 11/10/2022 11/10/2022 11/11/2022 [...] as of this encounter Care Teams Edge Banding Off Bearer Relationship Specialty Start Date End Date Marija Edgar APRN PLASTER MIXER PCP - General Nurse Practitioner 04/30/20 04/14/23 Esha Grimm PA-C [address] [place] [phone] PCP - General Family Medicine 05/04/23 Lita Oseguera Personal Advocate & Liaison (PAL) 02/28/20 03/27/23 Marija Edgar APRN PLASTER MIXER Assigned PCP 06/08/20 04/29/23 Mynor Broussard MD [address] [address] Assigned Surgical Provider 06/01/20 11/28/21 Keisha Dotson MD 909 [place] [address] Assigned Neuroscience Provider 06/04/20 04/01/23 Galo Burrell MD Assigned Heart and Vascular Provider 10/05/20 04/02/22 Diana Desir, [facility] [address] [place] [address] Pharmacist Pharmacist 04/17/21 Rain Galaviz PA-C [address] [place] [address] [place] [address] Physician Gastroenterology Professor Dermatology 04/28/21 Summer Lara MD [address] [place] [address] 368634 Assigned OBGYN Provider 05/31/21 Tavia Wyatt MD [address] [place] [address] 612374 Dermatology 07/14/21 Johnny Murillo MD [address] [place], [place] 07[address] Assigned Musculoskeletal Provider 08/30/21 03/17/22 Erica Farrell APRN PLASTER MIXER 6405 [facility] [address] [place], [place] 7789[address] Nurse Practitioner Cardiovascular Disease 09/09/21 Teresita Bean, [facility] [address] [place] [phone] Pharmacist Pharmacist 09/24/21 09/29/21 Tavia Wyatt MD [address] [place], [place] 375[address] Assigned Surgical Provider 11/29/21 05/07/22 Diana Desir, [facility] 3033 [place] [address] Assigned MTM Pharmacist 01/02/22 Rich Barrett MD 3033 [place] [address] Physician Ophthalmology 01/21/22 Neil Kent MD 500 [place] [address] Dermatology 02/24/22 Roney Story DPM [address] [facility] [address] [place] [address] Assigned Musculoskeletal Provider 03/20/22 08/13/22 Erica Farrell APRN PLASTER MIXER 1700 [place] [address] Assigned Heart and Vascular Provider 04/03/22 04/16/22 Diana Desir, [facility] 3033 [place] [address] Assigned MTM Pharmacist 04/07/22 Jelena David OD [address] [facility] [place] [address] Assigned Surgical Provider 05/08/22 10/08/22 Galo Burrell MD Assigned Heart and Vascular Provider 04/17/22 06/11/22 Livan Sharif MD 6[address] [facility] [address] [place] [address] Cardiovascular Disease 05/14/22 Livan Sharif MD [address] [place] [address] Assigned Heart and Vascular Provider 06/12/22 07/23/22 Catherine Cm MD [address] [place] [address] Cardiovascular Disease 07/21/22 Valery Veronica, PA-C [address] [place] [address] Physician Gastroenterology Professor Dermatology 07/21/22 Catherine Cm MD [address] [facility] [address] [place] [address] Assigned Heart and Vascular Provider 07/24/22 11/05/22 Johnny Murillo MD [address] [place] [address] 862694 Assigned Musculoskeletal Provider 08/14/22 10/08/22 Brea Quinn APRN PLASTER MIXER [address] [place] [address] Nurse Practitioner Dermatology 09/21/22 Brea Quinn APRN PLASTER MIXER [address] [place] [address] [place] [address] Assigned Surgical Provider 10/09/22 05/01/24 [place] [address] [place] [address] Assigned Musculoskeletal Provider 10/09/22 05/01/24 Livan Sharif MD [address] [place] [address] Assigned Heart and Vascular Provider 11/06/22 11/12/22 Catherine Cm MD [address] [place] [address] Assigned Heart and Vascular Provider 11/13/22 05/27/23 Sydnie Martinez RN Personal Advocate & Liaison (PAL) Family Medicine 03/28/23 07/31/23 Alfonso Renteria MD 5775 [facility] 200 [place] [address] Assigned Neuroscience Provider 04/02/23 09/29/24 Cheng Todd PA-C [address] [place] [address] [phone] Assigned PCP 04/30/23 07/15/23 Radha Lomeli, ENGAGEMENT LEAD PLASTER MIXER [address] [place] [address] Assigned Heart and Vascular Provider 05/28/23 Jelena David OD [address] [facility] [place] [address] Ophthalmology 06/15/23 Pao Joseph, VJ Personal Advocate & Liaison (PAL) Nurse 08/01/23 11/07/23 Esha Grimm PA-C [address] [place] [phone] Assigned PCP 07/16/23 Valery Veronica PA-C [address] [place] [address] 337745 Physician Gastroenterology Professor Dermatology 09/19/23 Rey Tay MD [address] [place] [address] 059775 MD Gastroenterology 09/20/23 Rocky Zepeda DO [address] [place] [address] 252325 Physician Gastroenterology 09/20/23 Philip Dumont MD [address] [place] [address] 813665 Physician Ophthalmology 09/22/23 Meredith Carrera PA-C [address] [place] [address] Assigned Gastroenterology Provider 11/01/23 Neil Kent MD [address] [address] Dermatology 11/02/23 [place] [address] [place] [address] Neurological Surgery 12/26/23 Audrey Waite PA-C [address] [place] [address] Physician Gastroenterology Professor Dermatology 02/28/24 Valery Veronica PA-C [address]232 [address] [place] [address] Physician Gastroenterology Professor Dermatology 04/10/24 Herminia Hatch MD [address] [place] [address] Assigned Rheumatology Provider 07/02/24 Jelena David OD [address] [facility] [place] [address] Ophthalmology 08/30/24 [place] [address] [place] [address] Assigned Neuroscience Provider 09/30/24 Maru Man PA-C [address] [place] [address] Physician Gastroenterology Professor Dermatology 10/03/24 Maru Man PA-C [address] [place] [address] Physician Gastroenterology Professor Dermatology 10/22/24 documented as of this encounter
--- OUTSIDE RECORDS SUMMARY | 2024-11-21 04:19 | XMS_ITS | Encounter Summary ---
Author Organization [place] Address [address] [place] [address] Care Team Providers Care Publication Designer Name Role Phone Lita Oseguera Unavailable Unavailable Marija Edgar APRN JACKERMAN Primary Care Provider + Marija Edgar APRN JACKERMAN Unavailable Mynor Broussard MD Unavailable [phone] Keisha Dotson MD Unavailable Galo Burrell MD Unavailable Unavailable Diana Desir [facility] Unavailable [phone] Rain Galaviz PA-C Unavailable Summer Lara MD Unavailable [phone] Tavia Wyatt MD Unavailable Johnny Murillo MD Unavailable Erica Farrell APRN JACKERMAN Unavailable Teresita Bean [facility] Unavailable Tavia Wyatt MD Unavailable Diana Desir [facility] Unavailable [phone] Rich Barrett MD Unavailable [phone] Neil Kent MD Unavailable Roney Story DPM Unavailable Erica Farrell VACUUM BOTTLE ASSEMBLER JACKERMAN Unavailable Diana Desir [facility] Unavailable [phone] Jelena David OD Unavailable Galo Burrell MD Unavailable Unavailable Livan Sharif MD Unavailable + Livan Sharif MD Unavailable + Catherine Cm MD Unavailable + Valery Veronica PA-C Unavailable [phone] Catherine Cm MD Unavailable + Johnny Murillo MD Unavailable [phone] Brea Quinn [employer] ASSEMBLER JACKERMAN Unavailable [phone] Brea Quinn [employer]LE ASSEMBLER JACKERMAN Unavailable [phone] Jose Francisco Johnson MD Unavailable Livan Sharif MD Unavailable + IsCatherine hobbs MD Unavailable + Sydnie Martinez RN Unavailable Unavailable Alfonso Renteria MD Unavailable Esha Grimm-C Primary Care Provider Cheng Todd PA-C Unavailable Radha Lomeli [employer] BOTTLE ASSEMBLER JACKERMAN Unavailable [phone] Jelena David OD Unavailable Pao Joseph RN Unavailable Unavailable Esha Grimm-C Unavailable JeremíasValery damon PA-C Unavailable [phone] Rey Tay MD Unavailable Rocky Zepeda DO Unavailable Philip Dumont MD Unavailable Meredith Carrera PA-C Unavailable [phone] Neil Kent MD Unavailable Juan Pablo Emmanuel MD Unavailable Audrey Waite PA-C Unavailable [phone] Valery Veronica PA-C Unavailable [phone] Herminia Hatch MD Unavailable Jelena David OD Unavailable Juan Pablo Emmanuel MD Unavailable [phone] Maru ManC Unavailable [phone] Maru ManC Unavailable [phone] Jelena David OD Unavailable Encounter Details Date Type Department Care Team (Late st Contact Info) Description 06/25/2021 [facility] Medical Advice [address] [phone] Diana Desir, [facility] [address] [place], [place] [phone] Psoriasis (Primary Dx) Social History Tobacco Use [...] in a mcfp (including now)? No 08/11/2020 [place] Depression Scale Answer Date Recorded [place] Depression Score 5 01/14/2021 Last EPDS Self Harm Result Not on file 01/14 Education Answer Date Recorded What is the highest level of school you have completed or the highest degree you have received? 12th grade 08/07/2020 Comments No Sex and Gender Information Value Date Recorded Sex Assigned at Female 03/02/2021 5:45 PM CDT Legal Sex Female 4:13 AM AIR CONDITIONING SERVICE TECHNICIAN Gender Identity Female 03/02/2021 5:45 PM CDT Sexual Orientation Straight 02/28/2020 12 :51 AM CDT COVID-19 Exposure Response Date Recorded In the last month, have you been in contact with someone who was confirmed or suspected to have Coronavirus / COVID-19? No / Unsure 06/26/2021 8:28 AM AIR CONDITIONING SERVICE TECHNICIAN documented as of this encounter Miscellaneous Notes * Telephone Encounter - Diana Desir, [facility] - 06/26/2021 9:53 AM CST Discussed with PCP and verbal approval for betamethasone cream. Diana Desir, PharmD Medication Therapy Management Provider, [facility] Pager: [phone] CONDITIONING SERVICE TECHNICIAN documented in this encounter Plan of Treatment Upcoming Encounters Date Type Department Care Team (Late st Contact Info) Description 11/21/2024 7:00 AM CDT Office Visit [facility] [address] [phone] Maru Man PA-C [address] [address] 12/20/2024 2:30 PM CDT Office Visit [facility] [address] [place] [phone] Esha Grimm PA-C [id number] [place] [phone] 04/16/2025 11:00 AM CDT Virtual Visit [facility] [address] [phone] Meredith Carrera PA-C [address] [place] [address] 069475 documented as of this encounter Visit Diagnoses Diagnosis Psoriasis- Primary Other psoriasis documented in this encounter Additional Health Concerns Infection Onset Date Last Indicated Resolved Time Rule Out COVID-19 07/13/2021 07/13/2021 07/14/2021 3:04 PM AIR CONDITIONING SERVICE TECHNICIAN Rule Out COVID-19 07/18/2021 07/18/2021 07/20/2021 1:56 PM AIR CONDITIONING SERVICE TECHNICIAN COVID-19 07/18/2021 07/18/2021 08/08/2021 11:3 9 PM AIR CONDITIONING SERVICE TECHNICIAN Rule Out COVID-19 12/18/2021 12/18/2021 12/19/2021 11:34 AM CDT Rule Out COVID-19 02/24/2022 02/24/2022 02/25/2022 1:08 PM CDT Rule Out COVID-19 04/26/2022 04/26/2022 04/26/2022 6:47 AM CDT Rule Out COVID-19 05/17/2022 05/17/2022 05/17/2022 10:20 PM AIR CONDITIONING SERVICE TECHNICIAN Rule Out COVID-19 06/09/2022 06/09/2022 06/09/2022 9:35 AM AIR CONDITIONING SERVICE TECHNICIAN COVID-19 06/09/2022 06/09/2022 06/30/2022 11:4 1 PM AIR CONDITIONING SERVICE TECHNICIAN Rule Out COVID-19 11/10/2022 11/10/2022 [...] documented as of this encounter Care Teams Publication Designer Relationship Specialty Start Date End Date Marija Edgar APRN JACKERMAN PCP - General Nurse Practitioner 04/30/20 04/14/23 Esha Grimm PA-C [address] [place] [phone] PCP - General Family Medicine 05/04/23 Lita Oseguera Personal Advocate & Liaison (PAL) 02/28/20 03/27/23 Marija Edgar APRN JACKERMAN Assigned PCP 06/08/20 04/29/23 Mynor Broussard MD [address] [facility] 500 [place] [address] Assigned Surgical Provider 06/01/20 11/28/21 Keisha Dotson MD 909 [place] [address] Assigned Neuroscience Provider 06/04/20 04/01/23 Galo Burrell MD Assigned Heart and Vascular Provider 10/05/20 04/02/[address] [facility] [address] [place] [address] Pharmacist Pharmacist 04/17/21 Rain Galaviz PA-C [address] [place] [address] [address] [place] [address] Physician Debrander Dermatology 04/28/21 Summer Lara MD [address] [place] [address] [phone] Assigned OBGYN Provider 05/31/21 2 Tavia Wyatt MD [address] [place] [address] [phone] Dermatology 07/14/21 Johnny Murillo MD [facility] [address] [place], [place] 158864 Assigned Musculoskeletal Provider 08/30/21 03/17/22 Erica Farrell APRN JACKERMAN [address] [facility] [address] [place] [address] Nurse Practitioner Cardiovascular Disease 09/09/21 Teresita Bean, [facility] [address] [place] [phone] Pharmacist Pharmacist 09/24/21 09/29/21 Tavia Wyatt MD [address] [place] [address] Assigned Surgical Provider 11/29/21 05/07/[address] [address] [place] [address] Assigned MTM Pharmacist 01/02/22 Rich Barrett MD [address] [place] [address] Physician Ophthalmology 01/21/22 Neil Kent MD 500 [place], [place] [phone] Dermatology 02/24/22 Roney Story DPM [address] [facility] [address] [place], [place] 675037 Assigned Musculoskeletal Provider 03/20/22 08/13/22 Erica Farrell APRN JACKERMAN 1700 [place] [address] Assigned Heart and Vascular Provider 04/03/22 04/16/22 Diana Desir, [facility] [address] [place] [address] Assigned MTM Pharmacist 04/07/22 [place] [address] [facility] [place] [address] Assigned Surgical Provider 05/08/22 10/08/22 Glao Burrell MD Assigned Heart and Vascular Provider 04/17/22 06/11/22 Livan Sharif MD [address] [place] [address] Cardiovascular Disease 05/14/22 Livan Sharif MD [address] [place] [address] Assigned Heart and Vascular Provider 06/12/22 07/23/22 Catherine Cm MD [address] [place] 0[address]365 Cardiovascular Disease 07/21/22 Valery Veronica PAUcheC 909 [place] [address] Physician [place]ander Dermatology 07/21/22 Catherine Cm MD [address] [place] [address] Assigned Heart and Vascular Provider 07/24/22 11/05/22 Johnny Murillo MD [address] [place] [address] Assigned Musculoskeletal Provider 08/14/22 10/08/22 Brea Quinn APRN JACKERMAN 500 [place] [address] Nurse Practitioner Dermatology 09/21/22 Brea Quinn APRN JACKERMAN [facility], [place] [address] Assigned Surgical Provider 10/09/22 05/01/24 [place] [address] [facility] 300 [place] [address] Assigned Musculoskeletal Provider 10/09/22 05/01/24 Livan Sharif MD [address] [facility] [address] [place] 319015 Assigned Heart and Vascular Provider 11/06/22 11/12/22 Catherine Cm MD 6405 [facility] [address] [place] [address] Assigned Heart and Vascular Provider 11/13/22 05/27/23 Sydnie Martinez, JV Personal Advocate & Liaison (PAL) Family Medicine 03/28/23 07/31/23 Alfonso Renteria MD [address] [facility] 200 [place] [address] Assigned Neuroscience Provider 04/02/23 09/29/24 Cheng Todd PA-C [address] [place] [address] [phone] Assigned PCP 04/30/23 07/15/23 Radha Lomeli APRN JACKERMAN [address] [facility] [address] [place], [place] 512495 Assigned Heart and Vascular Provider 05/28/23 Jelena David OD [address] [place] [address] MD Ophthalmology 06/15/23 Pao Joseph, VJ Personal Advocate & Liaison (PAL) Nurse 08/01/23 11/07/23 Esha Grimm PA-C [address] [place] [phone] Assigned PCP 07/16/23 Valery Veronica PA-C [address] [place] [address] 964465 Physician De[place]ander Dermatology 09/19/23 Rey Tay MD [address] [place] [address] 226385 Gastroenterology 09/20/23 Rocky Zepeda DO [address] [place] [address] 588675 Physician Gastroenterology 09/20/23 Philip Dumont MD [address] [place] [address] 533035 Physician Ophthalmology 09/22/23 Meredith Carrera PA-C 909 [place] [address] Assigned Gastroenterology Provider 11/01/23 Neil Kent MD [address] [place] [address] Dermatology 11/02/23 [place] [address] [place] [address] Neurological Surgery 12/26/23 Audrey Waite PA-C 500 [place] [address] Physician Debrander Dermatology 02/28/24 Valery Veronica PA-C 216291 [place] [address] Physician Debrander Dermatology 04/10/24 Herminia Hatch MD [facility]5 [place], [place] [phone] Assigned Rheumatology Provider 07/02/24 Jelena David OD [address] [place] [address] [place] [address] Ophthalmology 08/30/24 [place] [address] [place] [address] Assigned Neuroscience Provider 09/30/24 Maru Man PA-C [address] [address] [address] Physician [place]ander Dermatology 10/03/24 Maru Man PA-C [address] [place] [address] Physician Debrander Dermatology 10/22/24 [place] [address] [place] [address] [place] [address] Assigned Surgical Provider 10/31/24 documented as of this encounter
--- OUTSIDE RECORDS SUMMARY | 2024-11-21 04:19 | XMS_ITS | Encounter Summary ---
Author Organization [facility] Address [address] [place] [address] Care Team Providers Care Integrated Marketing Manager Name Role Phone Lita Oseguera Unavailable Unavailable Marija Edgar APRN IRRIGATIONIST Primary Care Provider + Marija Edgar APRN IRRIGATIONIST Unavailable Keisha Dotson MD Unavailable Diana Desir [facility] Unavailable Rain Galaviz PA-C Unavailable Tavia Wyatt MD Unavailable Erica Farrell APRN IRRIGATIONIST Unavailable Rich Barrett MD Unavailable [phone] Neil [place] MD Unavailable Diana Desir [facility] Unavailable Livan Sharif MD Unavailable Catherine Cm MD Unavailable + Valery Veronica PA-C Unavailable [phone] Catherine Cm MD Unavailable + Brea Quinn [employer] GANG SAWYER IRRIGATIONIST Unavailable Brea Quinn [employer]ER IRRIGATIONIST Unavailable [phone] Jose Francisco Johnson MD Unavailable Livan Sharif MD Unavailable ChivoraynaCatherine boothe MD Unavailable + Sydnie Martinez RN Unavailable Unavailable Alfonso Renteria MD Unavailable Esha Grimm PA-C Primary Care Provider Cheng Todd PA-C Unavailable [phone] Rahda Lomeli [employer] GANG SAWYER IRRIGATIONIST Unavailable [phone] Jelena David OD Unavailable [phone] Pao Joseph RN Unavailable Unavailable Esha Grimm PA-C Unavailable [phone] Valery Veronica PA-C Unavailable Rey Tay MD Unavailable Rocky Zepeda DO Unavailable Philip Dumont MD Unavailable [phone] Meredith Carrera PA-C Unavailable [phone] Neil Kent MD Unavailable Juan Pablo Emmanuel MD Unavailable Audrey Waite PA-C Unavailable [phone] Valery Veronica PA-C Unavailable Herminia Hatch MD Unavailable Jelena David OD Unavailable Juan Pablo Emmanuel MD Unavailable [phone] Maru Man PA-C Unavailable [phone] Maru Man PA-C Unavailable [phone] Jelena Davide OD Unavailable Reason for Visit * Reason Onset Date Comments MyChart Communication 10/27/2022 Encounter Details Date Type Department Care Team (Late st Contact Info) Description 10/27/2022 MyC Medical Advice [facility] [address] [facility] [place] [phone] Brea Quinn, WOOD GANG SAWYER [facility] 6401 [facility] [place] [phone] MyChart Communication (/) Social History Tobacco Use [...] How often do you attend temple or jehovah's witness serv ices? Never 09/22/2021 [...] Answer Date Recorded PHQ-2 Score 1 10/11/2022 [facility] [...] health care facility (including now)? No 09/22/2021 [place] Depression Scale Answer Date Recorded [place] Depression Score 5 01/14/2021 Last EPDS Self Harm Result Not on file 01/14 Education Answer Date Recorded What is the highest level of school you have completed or the highest degree you have received? 12th grade 08/07/2020 Comments No Sex and Gender Information Value Date Recorded Sex Assigned at Female 03/02/2021 5:45 PM CDT Legal Sex Female 4:13 AM CHIEF OF STAFF Gender Identity Female 03/02/2021 5:45 PM CDT [...] chart message and advise. Letha Driver RN ealth Dermatology Gloria Alvarenga [phone] documented in this encounter Plan of Treatment Upcoming Encounters Date Type Department Care Team (Late st Contact Info) Description 11/21/2024 7:00 AM CDT Office [facility] [address] [phone] Maru Man PA-C [address] [place] [address] 12/20/2024 2:30 PM CDT Office Visit [facility] [address] [place] [phone] Esha Grimm PA-C [address] [place] [phone] 04/16/2025 11:00 AM CDT Virtual Visit [facility] [address] [place] [phone] Meredith Carrera PA-C [address] [place] [address] documented as of this encounter Visit Diagnoses [...] documented as of this encounter Care Teams Integrated Marketing Manager Relationship Specialty Start Date End Date Marija Edgar APRN CNP PCP - General Nurse Practitioner 04/30/20 04/14/23 Esha Grimm PA-C [address] [place] [phone] PCP - General Family Medicine 05/04/23 Lita Oseguera Personal Advocate & Liaison (PAL) 02/28/20 03/27/23 Marija Edgar APRN IRRIGATIONIST Assigned PCP 06/08/20 04/29/23 Keisha Dotson MD 909 [place] [address] Assigned Neuroscience Provider 06/04/20 04/01/23 Diana Desir, [facility] [address] [place], [place] [phone] Pharmacist Pharmacist 04/17/21 Rain Galaviz PA-C [address] [place] [address] [address] [place] [address] Physician Master Ship Dermatology 04/28/21 Tavia Wyatt MD [address] [place] [address] [address] [place] [address] Dermatology 07/14/21 Erica Farrell APRN IRRIGATIONIST [address] [place] [address] Nurse Practitioner Cardiovascular Disease 09/09/21 Rich Barrett MD [address] [place] [address] Physician Ophthalmology 01/21/22 Neil Kent MD 500 [place] [address] Dermatology 02/24/22 Diana Desri, [facility] [address] [place] [address] Assigned MTM Pharmacist 04/07/22 Livan Sharif MD [address] [place] [address] Cardiovascular Disease 05/14/22 Catherine Cm MD [address] [place] 979575 Cardiovascular Disease 07/21/22 Valery Veronica, PA-C [address] [place] [address] 884465 Physician Master Ship Dermatology 07/21/22 Catherine Cm MD [address] [place] [address] Assigned Heart and Vascular Provider 07/24/22 11/05/22 Brea Quinn APRN IRRIGATIONIST [address] [place] [address] 983375 Nurse Practitioner Dermatology 09/21/22 Brea Quinn APRN IRRIGATIONIST [address] [place] [address] [place] 980832 Assigned Surgical Provider 10/09/22 05/01/24 [place] [address] [facility] [place] [address] Assigned Musculoskeletal Provider 10/09/22 05/01/24 Livan Sharif MD [address] [place], [place] 330945 Assigned Heart and Vascular Provider 11/06/22 11/12/22 Catherine Cm MD [address] [place] [address] Assigned Heart and Vascular Provider 11/13/22 05/27/23 Sydnie Martinez RN Personal Advocate & Liaison (PAL) Family Medicine 03/28/23 07/31/23 Alfonso Renteria MD [address] [facility] 200 [place] [address] Assigned Neuroscience Provider 04/02/23 09/29/24 Cheng Todd PA-C [address] [place] [address] [phone] Assigned PCP 04/30/23 07/15/23 Radha Lomeli, WO[employer] GANG SAWYER IRRIGATIONIST [address] [place] [address] Assigned Heart and Vascular Provider 05/28/23 Jelena David OD [address] [place] [address] Ophthalmology 06/15/23 Pao Joseph, VJ Personal Advocate & Liaison (PAL) Nurse 08/01/23 11/07/23 Esha Grimm PAUcheC [address] [place] [address]-496183 Assigned PCP 07/16/23 Valery Veronica PA-C [address] [place] [address] Physician Master Ship Dermatology 09/19/23 Rey Tay MD [address] [place] [address] 990155 MD Gastroenterology 09/20/23 Rocky Zepeda DO [address] [place] [address] 199555 Physician Gastroenterology 09/20/23 Philip Dumont MD [address] [place] [address] 635155 Physician Ophthalmology 09/22/23 Meredith Carrera PA-C [address] [place] [address] 966895 Assigned Gastroenterology Provider 11/01/23 Neil Kent MD [address] [address] Dermatology 11/02/23 [place] [address] [place] [address] Neurological Surgery 12/26/23 Audrey Waite PA-C [address] [place] [address] Physician Master Ship Dermatology 02/28/24 Valery Veronica PA-C [address] [place] [address] Physician Master Ship Dermatology 04/10/24 Herminia Hatch MD [address] [place] [address] Assigned Rheumatology Provider 07/02/24 Jelena David OD [address] [place] [address] [place] [address] Ophthalmology 08/30/24 [place] [address] [place] [address] Assigned Neuroscience Provider 09/30/24 Maru Man PA-C [address] [place] [address] Physician Master Ship Dermatology 10/03/24 Maru Man PA-C [address] [place] [address] Physician Master Ship Dermatology 10/22/24 Jelena David OD [address] [place] [address] [place] [address] Assigned Surgical Provider 10/31/24 documented as of this encounter
--- OUTSIDE RECORDS SUMMARY | 2024-11-21 04:20 | XMS_ITS | Encounter Summary ---
Author Organization [place] Address [address] [place] [address] Care Team Providers Care Customs Inspector Name Role Phone Lita Oseguera Unavailable Unavailable Marija Edgar APRN PRECISION FARMING COORDINATOR Primary Care Provider + Chanelle Mccann APRN CNM Unavailab le Kyara De La Fuente RN Unavailable [phone] Marija Edgar APRN PRECISION FARMING COORDINATOR Unavailable [phone] Mynor Broussard MD Unavailable [phone] Keisha Dotson MD Unavailable Galo Burrell MD Unavailable Unavailable Cristina Wood Unavailable Diana Desir [facility] Unavailable [phone] Rain Galaviz PA-C Unavailable Summer Lara MD Unavailable [phone] Summer Lara MD Unavailable [phone] Summer Lara MD Unavailable [phone] Tavia Wyatt MD Unavailable Johnny Murillo MD Unavailable [phone] Erica Farrell APRN PRECISION FARMING COORDINATOR Unavailable VikasTeresita [facility] Unavailable Tavia Wyatt MD Unavailable Diana Desir [facility] Unavailable Rich Barrett MD Unavailable [phone] Neil Kent MD Unavailable Roney Story DP Unavailable Erica Farrell APRN PRECISION FARMING COORDINATOR Unavailable Diana Desir [facility] Unavailable Jelena David Unavailable Galo Burrell MD Unavailable Unavailable Livan Sharif MD Unavailable Livan Sharif MD Unavailable Catherine Cm MD Unavailable + Valery Veronica-C Unavailable [phone] Catherine Cm MD Unavailable + Johnny Murillo MD Unavailable [phone] Brea Quinn BUS DRIVER SUPERVISOR PRECISION FARMING COORDINATOR Unavailable [phone] Brea Quinn BUS DRIVER SUPERVISOR PRECISION FARMING COORDINATOR Unavailable [phone] Jose Francisco Johnson MD Unavailable Livan Sharif MD Unavailable Catherine Cm MD Unavailable + Sydnie Martinez RN Unavailable Unavailable Alfonso Renteria MD Unavailable Esha Grimm PA-C Primary Care Provider Cheng Todd PA-C Unavailable Radha Lomeli BUS DRIVER SUPERVISOR PRECISION FARMING COORDINATOR Unavailable Jelena David OD Unavailable Pao Joseph RN Unavailable Unavailable AlfaWicholincoln [facility]ina PA-C Unavailable [phone] Valery Veronica PA-C Unavailable Rey Tay MD Unavailable Rocky Zepeda DO Unavailable Philip Dumont MD Unavailable [phone] Meredith Carrera PA-C Unavailable [phone] Neil Kent MD Unavailable Juan Pablo Emmanuel MD Unavailable [phone] Audrey Waite PA-C Unavailable [phone] JeremíasValery damon PA-C Unavailable [phone] Herminia Hatch MD Unavailable Jelena David OD Unavailable Juan Pablo Emmanuel MD Unavailable Maru Man PA-C Unavailable Maru Man PA-C Unavailable [phone] Jelena David OD Unavailable Encounter Details Date Type Department Care Team (Late st Contact Info) Description 02/06/2021 [facility] Medical Advice [address] [address] Bob Diop Social History Tobacco [...] do you attend chur or religion services? More than 4 times [...] Date Recorded PHQ-2 Score 3 09/29/2020 [facility] of [...] in a jail (including now)? No 08/11/2020 [place] Depression Scale Answer Date Recorded [place] Depression Score 5 01/14/2021 Last EPDS Self Harm Result Not on file 01/14 Education Answer Date Recorded What is the highest level of school you have completed or the highest degree you have received? 12th grade 08/07/2020 Comments No Sex and Gender Information Value Date Recorded Sex Assigned at Female 03/02/2021 5:45 PM CDT Legal Sex Female 4:13 AM FLAME ANNEALING MACHINE SETTER Gender Identity Female 03/02/2021 5:45 PM [...] Description 11/21/2024 7:00 AM CDT Office Visit [facility] [place] [address] [address] Maru Man PA-C [address] [address] 12/20/2024 2:30 PM CDT Office Visit [facility] [address] [place] [address] Esha Grimm PA-C [id number] [place] [address] 04/16/2025 11:00 AM CDT Virtual Visit [facility] Clinic [address] [phone] Meredith Carrera PA-C [address] [place] [address] documented as of this encounter Visit Diagnoses Not on filedocumented in this encounter Additional Health Concerns Infection Onset Date Last Indicated Resolved Time Rule Out COVID-19 05/11/2021 05/11/2021 05/13/2021 10:18 AM CDT Rule Out COVID-19 07/13/2021 07/13/2021 07/14/2021 3:04 PM FLAME ANNEALING MACHINE SETTER Rule Out COVID-19 07/18/2021 07/18/2021 07/20/2021 1:56 PM FLAME ANNEALING MACHINE SETTER COVID-19 07/18/2021 07/18/2021 08/08/2021 11:3 9 PM FLAME ANNEALING MACHINE SETTER Rule Out COVID-19 12/18/2021 12/18/2021 12/19/2021 11:34 AM CDT Rule Out COVID-19 02/24/2022 02/24/2022 02/25/2022 1:08 PM CDT Rule Out COVID-19 04/26/2022 04/26/2022 04/26/2022 6:47 AM CDT Rule Out COVID-19 05/17/2022 05/17/2022 05/17/2022 10:20 PM FLAME ANNEALING MACHINE SETTER Rule Out COVID-19 06/09/2022 06/09/2022 06/09/2022 9:35 AM FLAME ANNEALING MACHINE SETTER COVID-19 06/09/2022 06/09/2022 06/30/2022 11:4 1 PM FLAME ANNEALING MACHINE SETTER Rule Out COVID-19 11/10/2022 11/10/2022 11/11/2022 [...] as of this encounter Care Teams Customs Inspector Relationship Specialty Start Date End Date Marija Edgar APRN PRECISION FARMING COORDINATOR PCP - General Nurse Practitioner 04/30/20 04/14/23 Esha Grimm PABaldo [address] [place] [phone] PCP - General Family Medicine 05/04/23 Lita Oseguera Personal Advocate & Liaison (PAL) 02/28/20 03/27/23 Chanelle Mccann APRN CNM [address] [place] [address], [address] [place] [address] Assigned OBGYN Provider 05/02/2005/09 Kyara De La Fuente, RN Specialty Asp Web Developer Neurology 06/04/20 03/05/21 Marija Edgar APRN PRECISION FARMING COORDINATOR Assigned PCP 06/08/20 04/29/23 Mynor Broussard MD 6363 [facility] 500 [place], [place] 825415 Assigned Surgical Provider 06/01/20 11/28/21 Keisha Dotson MD 909 [place], [place] 015255 Assigned Neuroscience Provider 06/04/20 04/01/23 Galo Burrell MD Assigned Heart and Vascular Provider 10/05/20 04/02/22 Cristina Wood Financial Resource Worker 02/09/21 02/09/21 Diana Desir, [facility] [address] [place] [address] Pharmacist Pharmacist 04/17/21 Rain Galaviz PA-C [address] [facility] [address] [place] [id number] Physician Software Deployment Engineer Dermatology 04/28/21 Summer Lara MD [address] [place], [place] [address] Assigned OBGYN Provider 05/10/2105/23 Summer Lara MD [address] [place] [address] [place], [place] 229204 Assigned OBGYN Provider 05/31/21 2 Summer Lara MD [address] [place] [address] 795124 Assigned OBGYN Provider 05/24/2105/30 Tavia Wyatt MD [address] [place] [address] [phone] MD Amato 07/14/21 Johnny Murillo MD [address] [place] [address] Assigned Musculoskeletal Provider 08/30/21 03/17/22 Erica Farrell APRN [facility] 6405 [facility] [address] [place] [address] Nurse Practitioner Cardiovascular Disease 09/09/21 Teresita Bean [facility] [address] [place] [phone] Pharmacist Pharmacist 09/24/21 09/29/21 Tavia Wyatt MD [address] [place], [place] [id number] Assigned Surgical Provider 11/29/21 05/07/22 Diana Desir, [facility] [address] [place] [address] Assigned MTM Pharmacist 01/02/22 Rich Barrett MD 3033 [place], [place] [address] Physician Ophthalmology 01/21/22 Neil Kent MD 500 [place], [place] 130235 Dermatology 02/24/22 Roney Story DPM [address] [facility] [address] [place], [place] 324967 Assigned Musculoskeletal Provider 03/20/22 08/13/22 Erica Farrell APRN PRECISION FARMING COORDINATOR [facility] [place] [address] Assigned Heart and Vascular Provider 04/03/22 04/16/22 [facility] [address] [place] [address] Assigned MTM Pharmacist 04/07/22 Jelena David OD [address] [place] [address] Assigned Surgical Provider 05/08/22 10/08/22 Galo Burrell MD Assigned Heart and Vascular Provider 04/17/22 06/11/22 Livan Sharif MD [address] [place] [address] [place] 425915 Cardiovascular Disease 05/14/22 Livan Sharif MD [address] [place] [address] [place] [address] Assigned Heart and Vascular Provider 06/12/22 07/23/22 Catherine Cm MD 6405 [facility] [address] [place] [address] Cardiovascular Disease 07/21/22 Valery Veronica, PA-C [address] [place] [address] 252685 Physician Software Deployment Engineer Dermatology 07/21/22 Catherine Cm MD [address] [place] [id number] [place] [address] Assigned Heart and Vascular Provider 07/24/22 11/05/22 Johnny Murillo MD [address] [place] [address] 448284 Assigned Musculoskeletal Provider 08/14/22 10/08/22 Brea Quinn APRN PRECISION FARMING COORDINATOR [address] [place] [address] 038805 Nurse Practitioner Dermatology 09/21/22 Brea Quinn APRN PRECISION FARMING COORDINATOR [address] [place] [address] [place] 118082 Assigned Surgical Provider 10/09/22 05/01/24 [place] [address] [facility] [place] [address] Assigned Musculoskeletal Provider 10/09/22 05/01/24 Liavn Sharif MD [address] [place] [address] [place], [place] 108775 Assigned Heart and Vascular Provider 11/06/22 11/12/22 Catherine Cm MD [address] [address] [place] [address] Assigned Heart and Vascular Provider 11/13/22 05/27/23 Sydnie Martinez RN Personal Advocate & Liaison (PAL) Family Medicine 03/28/23 07/31/23 Alfonso Renteria MD 5775 [facility] [address] 200 [place] [address] Assigned Neuroscience Provider 04/02/23 09/29/24 Cheng Todd PA-C [address] [place] [address] [phone] Assigned PCP 04/30/23 07/15/23 Radha Lomeli, ARLENE PRECISION FARMING COORDINATOR [address] [place] [address] Assigned Heart and Vascular Provider 05/28/23 Jelena David OD [address] [place] [address] Ophthalmology 06/15/23 Pao Joseph, VJ Personal Advocate & Liaison (PAL) Nurse 08/01/23 11/07/23 Esha Grimm PA-C [address] [place] [address] Assigned PCP 07/16/23 Valery Veronica PA-C 9 [place], [place] 157135 Physician Software Deployment Engineer Dermatology 09/19/23 Rey Tay MD [address] [place] [address] MD Gastroenterology 09/20/23 Rocky Zepeda DO [address] [place] [address] 042715 Physician Gastroenterology 09/20/23 Philip Dumont MD [address] [place] [address] 886705 Physician Ophthalmology 09/22/23 Meredith Carrera PA-C [address] [place] [address] 629375 Assigned Gastroenterology Provider 11/01/23 Neil eKnt MD [address] [address] Dermatology 11/02/23 [place] [address] [place] [address] Neurological Surgery 12/26/23 Audrey Waite PA-C [address] [place] [address] Physician Software Deployment Engineer Dermatology 02/28/24 Valery Veronica PA-C 802732 [address] [place] [address] Physician Software Deployment Engineer Dermatology 04/10/24 Herminia Hatch MD [address] [place] [address] Assigned Rheumatology Provider 07/02/24 Jelena David OD [address] [place] [address] [place] [address] Ophthalmology 08/30/24 [place] [address] [place] [address] Assigned Neuroscience Provider 09/30/24 Maru Man PA-C [address] [place] [address] Physician Software Deployment Engineer Dermatology 10/03/24 Maru Man PA-C [address] [place] [address] Physician Software Deployment Engineer Dermatology 10/22/24 Jeelna David OD [address] [place] [address] [place] [address] Assigned Surgical Provider 10/31/24 documented as of this encounter
--- OUTSIDE RECORDS SUMMARY | 2024-11-21 04:20 | XMS_ITS | Encounter Summary ---
Author Organization [place] Address [address] [place] [address] Care Team Providers Care Commodities Requirements Analyst Name Role Phone Lita Oseguera Unavailable Unavailable Marija Edgar RADIOLOGICAL HEALTH SPECIALIST JAVA WEB APPLICATION DEVELOPER Primary Care Provider + Chanelle Mccann RADIOLOGICAL HEALTH SPECIALIST CNM Unavailab le Marija Edgar APRN JAVA WEB APPLICATION DEVELOPER Unavailable [phone] Mynor Broussard MD Unavailable [phone] Keisha Dotson MD Unavailable Galo Burrell MD Unavailable Unavailable Diana Desir [facility] Unavailable Rain Galaviz PA-C Unavailable [phone] Summer Lara MD Unavailable [phone] Summer Lara MD Unavailable [phone] Summer Lara MD Unavailable [phone] Tavia Wyatt MD Unavailable Johnny Murillo MD Unavailable Erica Farrell RADIOLOGICAL HEALTH SPECIALIST JAVA WEB APPLICATION DEVELOPER Unavailable Teresita Bean [facility] Unavailable Tavia Wyatt MD Unavailable DesirDiana [facility] Unavailable Rich Barrett MD Unavailable Neil Kent MD Unavailable Roney StoryM Unavailable [phone] Erica Farrell APRN JAVA WEB APPLICATION DEVELOPER Unavailable Diana Desir [facility] Unavailable [phone] Jelena David OD Unavailable Galo Burrell MD Unavailable Unavailable Livan Sharif MD Unavailable Livan Sharif MD Unavailable Catherine Cm MD Unavailable + Valery VeronicaC Unavailable [phone] Catherine Cm MD Unavailable + Johnny Murillo MD Unavailable [phone] Brea Quinn RADIOLOGICAL HEALTH SPECIALIST JAVA WEB APPLICATION DEVELOPER Unavailable [phone] Brea Quinn RADIOLOGICAL HEALTH SPECIALIST JAVA WEB APPLICATION DEVELOPER Unavailable [phone] Jose Francisco Johnson MD Unavailable Livan Sharif MD Unavailable Catherine Cm MD Unavailable + Sydnie Martinez RN Unavailable Unavailable Alfonso Renteria MD Unavailable Esha GrimmC Primary Care Provider Cheng Todd-C Unavailable [phone] Radha Lomeli APRN JAVA WEB APPLICATION DEVELOPER Unavailable [phone] Jelena David OD Unavailable [phone] Pao Joseph RN Unavailable Unavailable Alfa, Esha M PA-C Unavailable [phone] Valery Veronica PA-C Unavailable [phone] Rey Tay MD Unavailable Rocky Zepeda DO Unavailable Philip Dumont MD Unavailable Meredith Carrera PA-C Unavailable [phone] Neil Kent MD Unavailable Juan Pablo Emmanuel MD Unavailable [phone] Audrey Waite PA-C Unavailable [phone] Valery Veronica PA-C Unavailable Herminia Hatch MD Unavailable Jelena David OD Unavailable Juan Pablo Emmanuel MD Unavailable [phone] Maru Man PA-C Unavailable [phone] Maru Man PA-C Unavailable [phone] Jelena David OD Unavailable Encounter Details Date Type Department Care Team (Late st Contact Info) Description 05/05/2021 [facility] Medical Advice [address] [address] Lauren Gan, RN Social History [...] Answer Date Recorded PHQ-2 Score 0 04/02/2021 [facility] [place] of Occupat ional Health - Occupational Stress [...] in a half-way (including now)? No 08/11/2020 [place] Depression Scale Answer Date Recorded [place] Depression Score 5 01/14/2021 Last EPDS Self Harm Result Not on file 01/14 Education Answer Date Recorded What is the highest level of school you have completed or the highest degree you have received? 12th grade 08/07/2020 Comments No Sex and Gender Information Value Date Recorded Sex Assigned at Female 03/02/2021 5:45 PM CDT Legal Sex Female 4:13 AM PREPRINT ANALYST Gender Identity Female 03/02/2021 5:45 PM [...] 7:00 AM CDT Office Visit [facility] [place] [address] [phone] Maru Man PA-C [address] [address] 12/20/2024 2:30 PM CDT Office Visit [facility] [address] [place] [phone] Esha Grimm PA-C [address] [place] [address] 04/16/2025 11:00 AM CDT Virtual Visit [facility] Gastroenterology Clinic [address] [phone] Meredith Carrera PA-C [address] [place] [address] documented as of this encounter Visit Diagnoses Not on filedocumented in this encounter Additional Health Concerns Infection Onset Date Last Indicated Resolved Time Rule Out COVID-19 05/11/2021 05/11/2021 05/13/2021 10:18 AM CDT Rule Out COVID-19 07/13/2021 07/13/2021 07/14/2021 3:04 PM PREPRINT ANALYST Rule Out COVID-19 07/18/2021 07/18/2021 07/20/2021 1:56 PM PREPRINT ANALYST COVID-19 07/18/2021 07/18/2021 08/08/2021 11:3 9 PM PREPRINT ANALYST Rule Out COVID-19 12/18/2021 12/18/2021 12/19/2021 11:34 AM CDT Rule Out COVID-19 02/24/2022 02/24/2022 02/25/2022 1:08 PM CDT Rule Out COVID-19 04/26/2022 04/26/2022 04/26/2022 6:47 AM CDT Rule Out COVID-19 05/17/2022 05/17/2022 05/17/2022 10:20 PM PREPRINT ANALYST Rule Out COVID-19 06/09/2022 06/09/2022 06/09/2022 9:35 AM PREPRINT ANALYST COVID-19 06/09/2022 06/09/2022 06/30/2022 11:4 1 PM PREPRINT ANALYST Rule Out COVID-19 11/10/2022 11/10/2022 11/11/2022 [...] documented as of this encounter Care Teams Commodities Requirements Analyst Relationship Specialty Start Date End Date Marija Edgar APRN JAVA WEB APPLICATION DEVELOPER PCP - General Nurse Practitioner 04/30/20 04/14/23 Esha Grimm PA-C [address] [place] [phone] PCP - General Family Medicine 05/04/23 Lita Oseguera Personal Advocate & Liaison (PAL) 02/28/20 03/27/23 Chanelle Mccann APRN [place] [address] [address] Assigned OBGYN Provider 05/02/2005/09 Marija Edgar APRN JAVA WEB APPLICATION DEVELOPER Assigned PCP 06/08/20 04/29/23 Mynor Broussard MD 6363 [facility] 500 [place] [address] Assigned Surgical Provider 06/01/20 11/28/21 Keisha Dotson MD 909 [place], [place] 708735 Assigned Neuroscience Provider 06/04/20 04/01/23 Galo Burrell MD Assigned Heart and Vascular Provider 10/05/20 04/02/22 [facility] 3033 [place] [address] Pharmacist Pharmacist 04/17/21 Rain Galaviz PA-C 5 [facility] [address] [place] [address] Physician Paper Final Inspector Dermatology 04/28/21 Summer Lara MD [address] [place] [address] Assigned OBGYN Provider 05/10/2105/23 Summer Lara MD 606 [facility] [address] Assigned OBGYN Provider 05/31/21 2 Summer Lara MD [address] [place] [address] Assigned OBGYN Provider 05/24/2105/30 Tavia Wyatt MD [address] [place] [address] Dermatology 07/14/21 Johnny Murillo MD [address] [place] [address] Assigned Musculoskeletal Provider 08/30/21 03/17/22 Erica Farrell APRN JAVA WEB APPLICATION DEVELOPER 6405 [facility] [address] [place] [address] Nurse Practitioner Cardiovascular Disease 09/09/21 [facility] [address] [place] [phone] Pharmacist Pharmacist 09/24/21 09/29/21 Tavia Wyatt MD [address] [place] [address] Assigned Surgical Provider 11/29/21 05/07/22 [facility] 3033 [place] [address] Assigned MTM Pharmacist 01/02/22 Rich Barrett MD 3033 [place] [address] Physician Ophthalmology 01/21/22 Neil Kent MD 500 [place] [address] Dermatology 02/24/22 Roney Story DPM [address] [facility] [address] [place] [address] Assigned Musculoskeletal Provider 03/20/22 08/13/22 Erica Farrell APRN JAVA WEB APPLICATION DEVELOPER 1700 [place] [address] Assigned Heart and Vascular Provider 04/03/22 04/16/22 Diana Desir, [facility] 3033 [place] [address] Assigned MTM Pharmacist 04/07/22 Jelena David OD [address] [facility] [place] [address] Assigned Surgical Provider 05/08/22 10/08/22 Galo Burrell MD Assigned Heart and Vascular Provider 04/17/22 06/11/22 Livan Sharif MD [address] [place] [address] Cardiovascular Disease 05/14/22 Livan Sharif MD [address] [place] [address] [place] [address] Assigned Heart and Vascular Provider 06/12/22 07/23/22 Catherine Cm MD [address] [address] [place] [address] Cardiovascular Disease 07/21/22 Valery Veronica PA-C 909 [place], [place] 8[address]75 Physician Paper Final Inspector Dermatology 07/21/22 Catherine Cm MD [address] [place] [address] [place] [address] Assigned Heart and Vascular Provider 07/24/22 11/05/22 Johnny Murillo MD [address] [place] [address] Assigned Musculoskeletal Provider 08/14/22 10/08/22 Brea Quinn APRN JAVA WEB APPLICATION DEVELOPER [address] [place] [address] Nurse Practitioner Dermatology 09/21/22 Brea Quinn APRN JAVA WEB APPLICATION DEVELOPER [address] [place] [address] Assigned Surgical Provider 10/09/22 05/01/24 [place] [address] [place] [address] [address] Assigned Musculoskeletal Provider 10/09/22 05/01/24 Livan Sharif MD [address] [facility]00 [place] [address] Assigned Heart and Vascular Provider 11/06/22 11/12/22 Catherine Cm MD [address] [address] [place] [address] Assigned Heart and Vascular Provider 11/13/22 05/27/23 Sydnie Martinez, RN Personal Advocate & Liaison (PAL) Family Medicine 03/28/23 07/31/23 Alfonso Renteria MD 5775 [facility] 200 [place] [address] Assigned Neuroscience Provider 04/02/23 09/29/24 Cheng Todd PA-C [address] [place] [address] [phone] Assigned PCP 04/30/23 07/15/23 Radha Lomeli APRN JAVA WEB APPLICATION DEVELOPER [address] [place] [address] Assigned Heart and Vascular Provider 05/28/23 Jelena David OD [facility] [facility] [place] [address] Ophthalmology 06/15/23 Pao Joseph RN Personal Advocate & Liaison (PAL) Nurse 08/01/23 11/07/23 Esha Grimm PA-C [address] [place] [address] Assigned PCP 07/16/23 Valery Veronica PA-C [address] [place] [address] 931015 Physician Paper Final Inspector Dermatology 09/19/23 Rey Tay MD [address] [place] [address] MD Gastroenterology 09/20/23 Rocky Zepeda DO [address] [place] [address] Physician Gastroenterology 09/20/23 Philip Dumont MD [address] [place] [address] Physician Ophthalmology 09/22/23 Meredith Carrera PA-C [address] [place] [address] Assigned Gastroenterology Provider 11/01/23 Neil Kent MD [address] [place] [address] MD Dermatology 11/02/23 [place] [address] [place] [address] 077897 Neurological Surgery 12/26/23 Audrey Waite PA-C [address] [place] [address] Physician Paper Final Inspector Dermatology 02/28/24 Valery Veronica PA-C 394436 [address] [place] [address] Physician Paper Final Inspector Dermatology 04/10/24 Herminia Hatch MD [address] [place] [address] [phone] Assigned Rheumatology Provider 07/02/24 Jelena David OD 3305 [facility] [place] [address] Ophthalmology 08/30/24 [place] [address] [place] [address] Assigned Neuroscience Provider 09/30/24 Maru Man PA-C [address] [place] [address] Physician Paper Final Inspector Dermatology 10/03/24 Maru Man PA-C [address] [place] [address] Physician Paper Final Inspector Dermatology 10/22/24 Jelena David OD 3305 [facility] [place] [address] Assigned Surgical Provider 10/31/24 documented as of this encounter
--- OUTSIDE RECORDS SUMMARY | 2024-11-21 04:20 | XMS_ITS | Encounter Summary ---
Author Organization [facility] Address [address] [place] [address] Care Team Providers Care Hand Ornament Maker Name Role Phone Lita Oseguera Unavailable Unavailable Marija Edgar APARTMENT RENTAL CLERK CLINICAL NURSING ASSISTANT Primary Care Provider + Chanelle Mccann APARTMENT RENTAL CLERK CNM Unavailab le Marija Edgar APRN CLINICAL NURSING ASSISTANT Unavailable Mynor Broussard MD Unavailable [phone] Keisha Dotson MD Unavailable [phone] Galo Burrell MD Unavailable Unavailable Diana Desir [facility] Unavailable Rain Galaviz PA-C Unavailable Summer Lara MD Unavailable [phone] Summer Lara MD Unavailable [phone] Summer Lara MD Unavailable [phone] Tavia Wyatt MD Unavailable Johnny Murillo MD Unavailable Erica Farrell APARTMENT RENTAL CLERK CLINICAL NURSING ASSISTANT Unavailable Teresita Bean [facility] Unavailable Tavia Wyatt MD Unavailable DesirDiana [facility] Unavailable Rich Barrett MD Unavailable Neil Kent MD Unavailable Roney StoryM Unavailable [phone] Erica Farrell APRN CLINICAL NURSING ASSISTANT Unavailable Diana Desir [facility] Unavailable [phone] Jelena David OD Unavailable Galo Burrell MD Unavailable Unavailable Livan Sharif MD Unavailable Livan Sharif MD Unavailable Catherine Cm MD Unavailable + Valery VeronicaC Unavailable [phone] Catherine Cm MD Unavailable + Johnny Murillo MD Unavailable [phone] Brea Quinn APARTMENT RENTAL CLERK CLINICAL NURSING ASSISTANT Unavailable [phone] Brea Quinn APARTMENT RENTAL CLERK CLINICAL NURSING ASSISTANT Unavailable [phone] Jose Francisco Johnson MD Unavailable Livan Sharif MD Unavailable Catherine Cm MD Unavailable + Sydnie Martinez RN Unavailable Unavailable Alfonso Renteria MD Unavailable Esha GrimmC Primary Care Provider Cheng Todd-C Unavailable [phone] Radha Lomeli APRN CLINICAL NURSING ASSISTANT Unavailable [phone] Jelena David OD Unavailable [phone] Pao Joseph RN Unavailable Unavailable Alfa, Esha M PA-C Unavailable [phone] Valery Veronica PA-C Unavailable [phone] Rey Tay MD Unavailable Rocky Zepeda DO Unavailable Philip Dumont MD Unavailable Meredith Carrera PA-C Unavailable [phone] Neil Kent MD Unavailable Juan Pablo Emmanuel MD Unavailable Audrey Waite PA-C Unavailable [phone] Valery Veronica PA-C Unavailable Herminia Hatch MD Unavailable Jelena David OD Unavailable Juan Pablo Emmanuel MD Unavailable [phone] Maru Man PA-C Unavailable [phone] Maru Man PA-C Unavailable [phone] Jelena David OD Unavailable Encounter Details Date Type Department Care Team (Late st Contact Info) Description 04/28/2021 [facility] Medical Advice [address] [phone] Lauren Gan, RN Social [...] do you attend chur or baptism services? More than 4 times [...] Answer Date Recorded PHQ-2 Score 0 04/02/2021 [facility] [place] of Occupat ional Health - Occupational Stress [...] in a jail (including now)? No 08/11/2020 [place] Depression Scale Answer Date Recorded [place] Depression Score 5 01/14/2021 Last EPDS Self Harm Result Not on file 01/14 Education Answer Date Recorded What is the highest level of school you have completed or the highest degree you have received? 12th grade 08/07/2020 Comments No Sex and Gender Information Value Date Recorded Sex Assigned at Female 03/02/2021 5:45 PM CDT Legal Sex Female 4:13 AM GLASS FRAME FITTER Gender Identity Female 03/02/2021 5:45 PM [...] AM CDT Office Visit [facility] [place] [address] [phone] Maru Man PA-C [address] [address] 12/20/2024 2:30 PM CDT Office Visit [facility] [address] [place] [phone] Esha Grimm PA-C [address] [place] [address] 04/16/2025 11:00 AM CDT Virtual Visit [facility] [address] [phone] Meredith Carrera PA-C [address] [place] [address] documented as of this encounter Visit Diagnoses Not on filedocumented in this encounter Additional Health Concerns Infection Onset Date Last Indicated Resolved Time Rule Out COVID-19 05/11/2021 05/11/2021 05/13/2021 10:18 AM CDT Rule Out COVID-19 07/13/2021 07/13/2021 07/14/2021 3:04 PM GLASS FRAME FITTER Rule Out COVID-19 07/18/2021 07/18/2021 07/20/2021 1:56 PM GLASS FRAME FITTER COVID-19 07/18/2021 07/18/2021 08/08/2021 11:3 9 PM GLASS FRAME FITTER Rule Out COVID-19 12/18/2021 12/18/2021 12/19/2021 11:34 AM CDT Rule Out COVID-19 02/24/2022 02/24/2022 02/25/2022 1:08 PM CDT Rule Out COVID-19 04/26/2022 04/26/2022 04/26/2022 6:47 AM CDT Rule Out COVID-19 05/17/2022 05/17/2022 05/17/2022 10:20 PM GLASS FRAME FITTER Rule Out COVID-19 06/09/2022 06/09/2022 06/09/2022 9:35 AM GLASS FRAME FITTER COVID-19 06/09/2022 06/09/2022 06/30/2022 11:4 1 PM GLASS FRAME FITTER Rule Out COVID-19 11/10/2022 11/10/2022 11/11/2022 [...] as of this encounter Care Teams Hand Ornament Maker Relationship Specialty Start Date End Date Marija Edgar APRN CLINICAL NURSING ASSISTANT PCP - General Nurse Practitioner 04/30/20 04/14/23 Esha Grimm PA-C [address] [place] [phone] PCP - General Family Medicine 05/04/23 Lita Oseguera Personal Advocate & Liaison (PAL) 02/28/20 03/27/23 Chanelle Mccann APRN [place] [address] [address] Assigned OBGYN Provider 05/02/2005/09 Marija Edgar APRN CLINICAL NURSING ASSISTANT Assigned PCP 06/08/20 04/29/23 Mynor Broussard MD [address] [facility] 500 [place] [address] Assigned Surgical Provider 06/01/20 11/28/21 Keisha Dotson MD 909 [place] [address] Assigned Neuroscience Provider 06/04/20 04/01/23 Galo Burrell MD Assigned Heart and Vascular Provider 10/05/20 04/02/22 [facility] 3033 [place] [address] Pharmacist Pharmacist 04/17/21 Rain Galaviz PA-C [address] [facility] [address] [place] [address] Physician Cancer Genetic Counselor Dermatology 04/28/21 Summer Lara MD [address] [place] [address] Assigned OBGYN Provider 05/10/2105/23 Summer Lara MD [address] [place] [address] Assigned OBGYN Provider 05/31/21 2 Summer Lara MD [address] [place] [address] Assigned OBGYN Provider 05/24/2105/30 Tavia Wyatt MD [address] [place] [address] Dermatology 07/14/21 Johnny Murillo MD [address] [facility] [address] [place] [address] Assigned Musculoskeletal Provider 08/30/21 03/17/22 Erica Farrell APRN CLINICAL NURSING ASSISTANT 6405 [facility] [address] [place] [address] Nurse Practitioner Cardiovascular Disease 09/09/21 [facility] [address] [place] [phone] Pharmacist Pharmacist 09/24/21 09/29/21 Tavia Wyatt MD [address] [place] [address] Assigned Surgical Provider 11/29/21 05/07/22 [facility] 3033 [place] [address] Assigned MTM Pharmacist 01/02/22 [place] [address] [place] [address] Physician Ophthalmology 01/21/22 Neil Kent MD 500 [place] [address] Dermatology 02/24/22 Roney Story DPM [address] [facility] [address] [place] [address] Assigned Musculoskeletal Provider 03/20/22 08/13/22 Erica Farrell APRN CLINICAL NURSING ASSISTANT 1700 [place] [address] Assigned Heart and Vascular Provider 04/03/22 04/16/22 Diana Desir, [facility] 3033 [place] [address] Assigned MTM Pharmacist 04/07/22 Jelena David OD [address] [facility] [place] [address] Assigned Surgical Provider 05/08/22 10/08/22 Galo Burrell MD Assigned Heart and Vascular Provider 04/17/22 06/11/22 Livan Sharif MD [address] [place] [address] Cardiovascular Disease 05/14/22 Livan Sharif MD [address] [address] [place] [address] Assigned Heart and Vascular Provider 06/12/22 07/23/22 Catherine Cm MD [address] [place] [address] Cardiovascular Disease 07/21/22 Valery Veronica PA-C 9 [place], [place] 30260[address] Physician Cancer Genetic Counselor Dermatology 07/21/22 Catherine Cm MD [address] [place] [address] Assigned Heart and Vascular Provider 07/24/22 11/05/22 Johnny Murillo MD [address] [place] [address] Assigned Musculoskeletal Provider 08/14/22 10/08/22 Brea Quinn APRN CLINICAL NURSING ASSISTANT [address] [place] [address] Nurse Practitioner Dermatology 09/21/22 Brea Quinn APRN CLINICAL NURSING ASSISTANT [address] [place] [address] Assigned Surgical Provider 10/09/22 05/01/24 [place] [address] [address] Assigned Musculoskeletal Provider 10/09/22 05/01/24 Livan Sharif MD [address] [address] [place] [address] Assigned Heart and Vascular Provider 11/06/22 11/12/22 Catherine Cm MD [address] [place] [address] Assigned Heart and Vascular Provider 11/13/22 05/27/23 Sydnie Martinez, RN Personal Advocate & Liaison (PAL) Family Medicine 03/28/23 07/31/23 Alfonso Renteria MD 5775 [facility] 200 [place] [address] Assigned Neuroscience Provider 04/02/23 09/29/24 Cheng Todd PA-C [address] [place] [address] [id number] Assigned PCP 04/30/23 07/15/23 Radha Lomeli APRN CLINICAL NURSING ASSISTANT [address] [place] [address] Assigned Heart and Vascular Provider 05/28/23 Jelena David OD [address] [facility] [place] [address] Ophthalmology 06/15/23 Pao Joseph RN Personal Advocate & Liaison (PAL) Nurse 08/01/23 11/07/23 Esha Grimm PA-C [address] [place] [address] Assigned PCP 07/16/23 Valery Veronica PA-C [address] [place] [address] 137835 Physician Cancer Genetic Counselor Dermatology 09/19/23 Rey Tay MD [address] [place] [address] MD Gastroenterology 09/20/23 Rocky Zepeda DO [address] [place] [address] Physician Gastroenterology 09/20/23 Philip Dumont MD [address] [place] [address] Physician Ophthalmology 09/22/23 Meredith Carrera PA-C [address] [place] [address] Assigned Gastroenterology Provider 11/01/23 Neil Kent MD [address] [place] [address] 275270 MD Dermatology 11/02/23 [place] [address] [phone] Neurological Surgery 12/26/23 Audrey Waite PA-C [address] [place] [address] Physician Cancer Genetic Counselor Dermatology 02/28/24 Valery Veronica PA-C 406179 [place] [address] Physician Cancer Genetic Counselor Dermatology 04/10/24 Herminia Hatch MD [address] [place] [address] Assigned Rheumatology Provider 07/02/24 Jelena David OD [address] [facility] [place] [address] Ophthalmology 08/30/24 [place] [address] [place] [address] Assigned Neuroscience Provider 09/30/24 Maru Man PA-C [address] [place] [address] Physician Cancer Genetic Counselor Dermatology 10/03/24 Maru Man PA-C [address] [place] [address] Physician Cancer Genetic Counselor Dermatology 10/22/24 Jelena David OD [address] [facility] [place] [address] Assigned Surgical Provider 10/31/24 documented as of this encounter
--- OUTSIDE RECORDS SUMMARY | 2024-11-21 04:20 | XMS_ITS | Encounter Summary ---
Author Organization [facility] Address [address] [place] [address] Care Team Providers Care Machine Operator Hop Worker Name Role Phone Lita Oseguera Unavailable Unavailable Marija Edgar APRN SHOP HELPER Primary Care Provider + Marija Edgar APRN SHOP HELPER Unavailable Keisha Dotson MD Unavailable Diana Desir [facility] Unavailable [phone] Rain Galaviz PA-C Unavailable Tavia Wyatt MD Unavailable Erica Farrell APRN SHOP HELPER Unavailable Rich Barrett MD Unavailable [phone] Neil Kent MD Unavailable Diana Desir [facility] Unavailable [phone] Jelena David OD Unavailable Livan Sharif MD Unavailable Catherine Cm MD Unavailable + Valery Veronica PA-C Unavailable [phone] Catherine Cm MD Unavailable + Johnny Murillo MD Unavailable [phone] Brea Quinn PLANT OPERATIONS COORDINATOR SHOP HELPER Unavailable [phone] Brea Quinn PLANT OPERATIONS COORDINATOR SHOP HELPER Unavailable [phone] Jose Francisco Johnson MD Unavailable Livan Sharif MD Unavailable Catherine Cm MD Unavailable + Sydnie Martinez RN Unavailable Unavailable Alfonso Renteria MD Unavailable [phone] Esha Grimm PA-C Primary Care Provider Cheng Todd PA-C Unavailable [phone] Radha Lomeli APRN SHOP HELPER Unavailable Jelena David OD Unavailable Pao Joseph RN Unavailable Unavailable Esha Grimm PA-C Unavailable [phone] Valery Veronica PA-C Unavailable Rey Tay MD Unavailable Rocky Zepeda DO Unavailable Philip Dumont MD Unavailable Meredith Carrera PA-C Unavailable [phone] Neil Kent MD Unavailable Juan Pablo Emmanuel MD Unavailable Audrey Waite PA-C Unavailable Valery Veronica PA-C Unavailable Herminia Hatch MD Unavailable Jelena David OD Unavailable Juan Pablo Emmanuel MD Unavailable Maru Man PA-C Unavailable [phone] Maru Man PA-C Unavailable [phone] Reason for Visit * Reason Onset Date Comments Call Back 09/21/2022 Change of provid er request Encounter Details Date Type Department Care Team (Late st Contact Info) Description 09/21/2022 Telephone [facility] [address], [address] [place] [address] Keisha Dotson MD [address] [place] [address] Call Back (Change of provider request) [...] Answer Date Recorded PHQ-2 Score 1 10/24/2024 [facility]at ional [facility] - Occupational Stress Questionnaire Answer Date [...] CDT Legal 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 Please call Pt back at [phone] to scheduled or advise. Action Taken: Message routed to: [facility] Neurology Travel Screening: Not Applicable documented in this encounter Plan of Treatment Upcoming Encounters Date Type Department Care Team (Late st Contact Info) Description 11/21/2024 7:00 AM CDT Office Visit [facility] [place] [address] [phone] Maru Man PA-C [address] [address] 12/20/2024 2:30 PM CDT Office Visit [facility] [address] [place] [phone] Esha Grimm PA-C [address] [place] [address] 04/16/2025 11:00 AM CDT Virtual Visit [facility] [address] [phone] Meredith Carrera PA-C [address] [place] [address] documented as of this encounter Visit Diagnoses [...] Total Score: 5 08/27/19 23 1:14 PM MAKE READY MECHANIC documented as of this encounter Care Teams Machine Operator Hop Worker Relationship Specialty Start Date End Date Marija Edgar APRN SHOP HELPER PCP - General Nurse Practitioner 04/30/20 04/14/23 Esha Grimm PA-C [address] [place] [address] PCP - General Family Medicine 05/04/23 Lita Oseguera Personal Advocate & Liaison (PAL) 02/28/20 03/27/23 Marija Edgar APRN SHOP HELPER Assigned PCP 06/08/20 04/29/23 Keisha Dotson MD 909 [place], [place] 234945 Assigned Neuroscience Provider 06/04/20 04/01/23 Diana Desir, [facility] 3033 [place], [place] [phone] Pharmacist Pharmacist 04/17/21 Rain Galaviz PA-C [address] [place] [address] [address] [place] [address] Physician Deputy Sheriff K9 Handler Dermatology 04/28/21 Tavia Wyatt MD [address] [place] [address] [place] [address] Dermatology 07/14/21 Erica Farrell APRN SHOP HELPER [address] [facility] [address] [address] [place] [address] Nurse Practitioner Cardiovascular Disease 09/09/21 Rich Barrett MD [address] [place] 6128[address] Physician Ophthalmology 01/21/22 Neil Kent MD [address] [place] [address] Dermatology 02/24/22 Diana Desir, [facility] [address] [place] [address] Assigned MTM Pharmacist 04/07/22 Jelena David OD [address] [facility] [place] [address] Assigned Surgical Provider 05/08/22 10/08/22 Livan Sharif MD [address] [place] [address] Cardiovascular Disease 05/14/22 Catherine Cm MD [address] [place] [address] Cardiovascular Disease 07/21/22 Valery Veronica PAUcheC 909 [place] [address] Physician Deputy Sheriff K9 Handler Dermatology 07/21/22 Catherine Cm MD [address] [place] [address] Assigned Heart and Vascular Provider 07/24/22 11/05/22 Johnny Murillo MD [address] [facility] [address] [place] [address] Assigned Musculoskeletal Provider 08/14/22 10/08/22 Brea Quinn APRN SHOP HELPER 500 [place], [place] 494315 Nurse Practitioner Dermatology 09/21/22 Brea Quinn APRN SHOP HELPER 6401 [facility] [place] [address] Assigned Surgical Provider 10/09/22 05/01/24 [place] [address] [address] Assigned Musculoskeletal Provider 10/09/22 05/01/24 Livan Sharif MD 6405 [facility] [address] [place] [address] Assigned Heart and Vascular Provider 11/06/22 11/12/22 Catherine Cm MD [address] [facility] [address] [place] [address] Assigned Heart and Vascular Provider 11/13/22 05/27/23 Sydnie Martinez RN Personal Advocate & Liaison (PAL) Family Medicine 03/28/23 07/31/23 Alfonso Renteria MD [address] [facility] 200 [place], [place] 669456 Assigned Neuroscience Provider 04/02/23 09/29/24 Cheng Todd PA-C [address] [place] [address] [phone] Assigned PCP 04/30/23 07/15/23 Radha Lomeli APRN SHOP HELPER 6405 [facility] [address] [place] [address] Assigned Heart and Vascular Provider 05/28/23 Jelena David OD [address] [facility] [place] [address] Ophthalmology 06/15/23 Pao Joseph, RN Personal Advocate & Liaison (PAL) Nurse 08/01/23 11/07/23 Esha Grimm PA-C [address] [place] [phone] Assigned PCP 07/16/23 Valery Veronica PA-C [address] [place] [address] 616535 Physician Deputy Sheriff K9 Handler Dermatology 09/19/23 Rey Tay MD [address] [place] [address] 776735 Gastroenterology 09/20/23 Rocky Zepeda DO [address] [place] [address] 909415 Physician Gastroenterology 09/20/23 Philip Dumont MD [address] [place] [address] 486035 Physician Ophthalmology 09/22/23 Meredith Carrera PA-C 909 [place] [address] Assigned Gastroenterology Provider 11/01/23 Neil Kent MD [address] [address] Dermatology 11/02/23 [place] [address] [place], [place] [address] Neurological Surgery 12/26/23 Audrey Waite PA-C 500 [place] [address] Physician Deputy Sheriff K9 Handler Dermatology 02/28/24 Valery Veronica PA-C 737848 [address], [place] 2367[address] Physician Deputy Sheriff K9 Handler Dermatology 04/10/24 Herminia Hatch MD [facility]5 [place], [place] 94[address] Assigned Rheumatology Provider 07/02/24 Jelena David OD [address] [facility] [place] [address] Ophthalmology 08/30/24 [place] [address] [place] [address] Assigned Neuroscience Provider 09/30/24 Maru Man PA-C [address] [place] [address] Physician Deputy Sheriff K9 Handler Dermatology 10/03/24 Maru Man PA-C [address] [place] [address] Physician Deputy Sheriff K9 Handler Dermatology 10/22/24 documented as of this encounter
--- OUTSIDE RECORDS SUMMARY | 2024-11-21 04:20 | XMS_ITS | Encounter Summary ---
Author Organization [facility] Address [address] [place] [address] Care Team Providers Care Creative/Art Director Name Role Phone Lita Oseguera Unavailable Unavailable Marija Edgar APRN GL ACCOUNTANT Primary Care Provider + Marija Edgar APRN GL ACCOUNTANT Unavailable Keisha Dotson MD Unavailable [phone] [facility] Unavailable [phone] Rain Galaviz PA-C Unavailable Tavia Wyatt MD Unavailable Erica Farrell APRN GL ACCOUNTANT Unavailable Rich Barrett MD Unavailable [phone] Neil Kent MD Unavailable [facility] Unavailable Livan Sharif MD Unavailable Catherine Cm MD Unavailable + Valery Veronica PA-C Unavailable Catherine Cm MD Unavailable + Brea Quinn ONLINE TUTOR GL ACCOUNTANT Unavailable Brea Quinn ONLINE TUTOR GL ACCOUNTANT Unavailable [phone] Jose Francisco Johnson MD Unavailable Livan Sharif MD Unavailable ChivoraynaCatherine boothe MD Unavailable + Sydnie Martinez RN Unavailable Unavailable Alfonso Renteria MD Unavailable Esha Grimm PA-C Primary Care Provider Cheng Todd PA-C Unavailable [phone] Radha Lomeli ONLINE TUTOR GL ACCOUNTANT Unavailable [phone] Jelena David OD Unavailable [phone] Pao Joseph RN Unavailable Unavailable Esha Grimm PA-C Unavailable [phone] Valery Veronica PA-C Unavailable Rey Tya MD Unavailable Rocky Zepeda DO Unavailable Philip Dumont MD Unavailable [phone] Meredith Carrera PA-C Unavailable [phone] Neil Kent MD Unavailable Juan Pablo Emmanuel MD Unavailable Audrey Waite PA-C Unavailable [phone] Valery Veronica PA-C Unavailable Herminia Hatch MD Unavailable Jelena David OD Unavailable Juan Pablo Emmanuel MD Unavailable Maru Man PA-C Unavailable [phone] Maru Man PA-C Unavailable [phone] Jelena Davide OD Unavailable Encounter Details Date Type Department Care Team (Late st Contact Info) Description 10/22/2022 MyC Medical Advice [facility] [address] [place] [phone] Lauren Claudio PABaldo [address] [place] [address] Social History Tobacco Use Types [...] How often do you attend jewish or presybeterian serv ices? Never 09/22/2021 Do [...] Answer Date Recorded PHQ-2 Score 1 10/11/2022 [facility] of Occupat ional Health - Occupational Stress [...] in a half-way (including now)? No 09/22/2021 [place] Depression Scale Answer Date Recorded [place] Depression Score 5 01/14/2021 Last EPDS Self Harm Result Not on file 01/14 Education Answer Date Recorded What is the highest level of school you have completed or the highest degree you have received? 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 Gender Identity Female 03/02/2021 5:45 PM CDT [...] Description 11/21/2024 7:00 AM CDT Office Visit [facility] [address] [phone] Maru Man PA-C [address] [place] [address] [phone] 12/20/2024 2:30 PM CDT Office Visit [address] [phone] Esha Grimm PA-C [id number] [place] [phone] 04/16/2025 11:00 AM CDT Virtual Visit [facility] [address] 4th [place] [phone] Meredith Carrera PA-C [address] [place] [address] [phone] documented as of this encounter Visit Diagnoses [...] documented as of this encounter Care Teams Creative/Art Director Relationship Specialty Start Date End Date Marija Edgar APRN GL ACCOUNTANT PCP - General Nurse Practitioner 04/30/20 04/14/23 Esha Grimm PA-C [address] [place] [phone] PCP - General Family Medicine 05/04/23 Lita Oseguera Personal Advocate & Liaison (PAL) 02/28/20 03/27/23 Marija Edgar APRN GL ACCOUNTANT Assigned PCP 06/08/20 04/29/23 Keisha Dotson MD [address] [place] [address] Assigned Neuroscience Provider 06/04/20 04/01/23 [facility] [address] [place] [address] Pharmacist Pharmacist 04/17/21 Rain Galaviz PA-C [address] [place] [address] [address] [place] [address] Physician Job Coaching Dermatology 04/28/21 Tavia Wyatt MD [address] [place] [address] [address] [facility] [place] [address] Dermatology 07/14/21 Erica Farrell APRN GL ACCOUNTANT [address] [place] [address] Nurse Practitioner Cardiovascular Disease 09/09/21 Rich Barrett MD [address] [place] [address] Physician Ophthalmology 01/21/22 Neil Kent MD 500 [place], [place] [phone] Dermatology 02/24/22 [facility] [address] [place] [address] Assigned MTM Pharmacist 04/07/22 Livan Sharif MD [address] [place] [address] Cardiovascular Disease 05/14/22 Catherine Cm MD [address] [place] [address] Cardiovascular Disease 07/21/22 Valery Veronica PA-C [address] [place] [address] Physician Job Coaching Dermatology 07/21/22 Catherine Cm MD [address] [place] [address] Assigned Heart and Vascular Provider 07/24/22 11/05/22 Brea Quinn APRN GL ACCOUNTANT [address] [place] [address] 526675 Nurse Practitioner Dermatology 09/21/22 Brea Quinn APRN GL ACCOUNTANT [address] [place] [address] Assigned Surgical Provider 10/09/22 05/01/24 [place] [address] [place] [address] Assigned Musculoskeletal Provider 10/09/22 05/01/24 Livan Sharif MD [address] [place] [address] Assigned Heart and Vascular Provider 11/06/22 11/12/22 Catherine Cm MD [address] [place] [address] Assigned Heart and Vascular Provider 11/13/22 05/27/23 Sydnie Martinez RN Personal Advocate & Liaison (PAL) Family Medicine 03/28/23 07/31/23 Alfonso Renteria MD [address] [facility] [address] [place] [address] Assigned Neuroscience Provider 04/02/23 09/29/24 Cheng Todd PA-C [address] [place] [address] Assigned PCP 04/30/23 07/15/23 Radha Lomeli APRN GL ACCOUNTANT [address] [facility] [address] [place] [address] Assigned Heart and Vascular Provider 05/28/23 Jelena David OD [address] [facility] [place] [address] Ophthalmology 06/15/23 Pao Joseph, VJ Personal Advocate & Liaison (PAL) Nurse 08/01/23 11/07/23 Esha Grimm PA-C [address] [place] [phone] Assigned PCP 07/16/23 Valery Veronica PA-C [address] [place] [address] 915125 Physician Job Coaching Dermatology 09/19/23 Rey Tay MD [address] [place] [address] Gastroenterology 09/20/23 Rocky Zepeda DO [address] [place] [address] Physician Gastroenterology 09/20/23 Philip Dumont MD [address] [place] [address] Physician Ophthalmology 09/22/23 Meredith Carrera PA-C [address] [place] [address] Assigned Gastroenterology Provider 11/01/23 Neil Kent MD [address] [address] MD Dermatology 11/02/23 Juan Pablo [place] [id number] [place] [address] [address] Neurological Surgery 12/26/23 Audrey Waite PA-C 500 [place] [address] Physician Job Coaching Dermatology 02/28/24 Valery Veronica PA-C [address] [place] [address] Physician Job Coaching Dermatology 04/10/24 Herminia Hatch MD [address] [place] [address] [id number] Assigned Rheumatology Provider 07/02/24 [place] [address] [place] [address] [place] [address] Ophthalmology 08/30/24 [place] [address] [place] [address] Assigned Neuroscience Provider 09/30/24 Maru Man PA-C [address] [place] [address] Physician Job Coaching Dermatology 10/03/24 Maru Man PA-C [address] [place] [address] Physician Job Coaching Dermatology 10/22/24 Jelena David OD [address] [facility] [place] [address] Assigned Surgical Provider 10/31/24 documented as of this encounter
--- OUTSIDE RECORDS SUMMARY | 2024-11-21 04:20 | XMS_ITS | Encounter Summary ---
Author Organization [facility] Address [address] [place] [address] Care Team Providers Care Field Evidence Technician Name Role Phone Lita Oseguera Unavailable Unavailable Marija Edgar APRN FIBRE CEMENT MOULDER Primary Care Provider + Marija Edgar APRN FIBRE CEMENT MOULDER Unavailable Keisha Dotson MD Unavailable Diana Desir [facility] Unavailable Rain Galaviz PA-C Unavailable Tavia Wyatt MD Unavailable Erica Farrell APRN FIBRE CEMENT MOULDER Unavailable Rich Barrett MD Unavailable [phone] Neil Kent MD Unavailable Diana Desir [facility] Unavailable Livan Sharif MD Unavailable Catherine Cm MD Unavailable + Valery Veronica PA-C Unavailable Catherine Cm MD Unavailable + Brea Quinn COMMUNITY ENGAGEMENT MANAGER FIBRE CEMENT MOULDER Unavailable [phone] Brea Quinn COMMUNITY ENGAGEMENT MANAGER FIBRE CEMENT MOULDER Unavailable [phone] Jose Francisco Johnson MD Unavailable Livan Sharif MD Unavailable Catherine Cm MD Unavailable + Sydnie Martinez RN Unavailable Unavailable Alfonso Renteria MD Unavailable Esha Grimm PA-C Primary Care Provider Cheng Todd PA-C Unavailable [phone] Radha Lomeli COMMUNITY ENGAGEMENT MANAGER FIBRE CEMENT MOULDER Unavailable [phone] Jelena David OD Unavailable [phone] Pao Joseph RN Unavailable Unavailable Esha Grimm PA-C Unavailable [phone] Valery Veronica PA-C Unavailable Rey Tay MD Unavailable Rocky Zepeda DO Unavailable Philip Dumont MD Unavailable [phone] Meredith Carrera PA-C Unavailable [phone] Neil Kent MD Unavailable Juan Pablo Emmanuel MD Unavailable Audrey Waite PA-C Unavailable [phone] Valery Veronica PA-C Unavailable Herminia Hatch MD Unavailable Jelena David OD Unavailable [phone] Juan Pablo Emmanuel MD Unavailable Maru Man PA-C Unavailable [phone] Maru Man PA-C Unavailable [phone] Reason for Visit * Reason Onset Date Comments Pt. Information/instruction 10/11/2022 Appointment 10/11/2022 Encounter Details Date Type Department Care Team (Late st Contact Info) Description 10/11/2022 Telephone [facility] [place] [address] [facility] [address] [place] [address] [place] [address] [place] [address] Pt. Information/instructio n; Appointment Social History Tobacco [...] Answer Date Recorded PHQ-2 Score 1 10/24/2024 [facility] [place] of Occupat ional Health - Occupational Stress [...] exercise at this level? 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 Please see new request below from [facility] and advise. Mandi Byrd RN * Telephone Encounter - Treasure Lee - 10/15/2022 2:14 PM CDT [facility] Phone Message May a detailed message be left on voicemail: yes Reason for Call: Other: Patient's QRCMeredith is wondering if she can also be conference in on patient's upcoming appointment (10/27). Action Taken: Other: [facility] Travel Screening: Not Applicable * Telephone Encounter - Mary Easley - 10/12/2022 12:47 PM CDT Called [facility] to discuss what they are needing from 's office. No answer. Left message to call back Kristina Easley ATC * Telephone Encounter - Treasure Lee - 10/11/2022 10:05 AM CDT [facility] Phone Message May a detailed message be left on voicemail: yes Reason for Call: Other: Please contact patient's medicare compliance auditorRosalva so she can authorize patient's MRI. Ros[facility]va's contact info: phone# [phone] fax# [phone] Action Taken: Other: [facility] Travel Screening: Not Applicable documented in this encounter Plan of Treatment Upcoming Encounters Date Type Department Care Team ([facility] st Contact Info) Description 11/21/2024 7:00 AM CDT Office Visit [address] [phone] Maru Man PA-C [address] [address] 12/20/2024 2:30 PM CDT Office Visit [facility] [address] [place] [phone] Esha Grimm PA-C [address] [place] [address] 04/16/2025 11:00 AM CDT Virtual Visit [facility] [address]th [place] [address] Meredith Carrera PA-C [address] [place] [address] documented as of this encounter Visit Diagnoses [...] as of this encounter Care Teams Field Evidence Technician Relationship Specialty Start Date End Date Marija Edgar APRN FIBRE CEMENT MOULDER PCP - General Nurse Practitioner 04/30/20 04/14/23 Esha Grimm PA-C [address] [place] [phone] PCP - General Family Medicine 05/04/23 Lita Oseguera Personal Advocate & Liaison (PAL) 02/28/20 03/27/23 Marija Edgar APRN FIBRE CEMENT MOULDER Assigned PCP 11/29/20 10/20/23 Keisha Dotson MD [address] [place] [address] Assigned Neuroscience Provider 06/04/20 04/01/23 Diana Desir, [facility] [address] [place] [address] Pharmacist Pharmacist 04/17/21 Rain Galaviz PA-C [address] [place] [address] [address] [place] [address] Physician Poker Dealer Dermatology 04/28/21 Tavia Wyatt MD [address] [place] [address] DR [address] [facility] [facility] [place] [address] Dermatology 07/14/21 Erica Farrell APRN FIBRE CEMENT MOULDER [address] [place] [address] Nurse Practitioner Cardiovascular Disease 09/09/21 Rich Barrett MD [address] [place] [address] Physician Ophthalmology 01/21/22 Neil Kent MD [address] [place] [address] Dermatology 02/24/22 Diana Desir, [facility] [address] [place] [address] Assigned MTM Pharmacist 04/07/22 Livan Sharif MD [address] [place] [address] Cardiovascular Disease 05/14/22 Catherine Cm MD [address] [facility] [place] [address] Cardiovascular Disease 07/21/22 Valery Veronica, PA-C [address] [place] [address] 161545 Physician Poker Dealer Dermatology 07/21/22 Catherine Cm MD [address] [place] 535965 Assigned Heart and Vascular Provider 07/24/22 11/05/22 Brea Quinn APRN FIBRE CEMENT MOULDER [address] [place] [address] 075485 Nurse Practitioner Dermatology 09/21/22 Brea Quinn APRN FIBRE CEMENT MOULDER [address] [place] [address] W[place] [id number] Assigned Surgical Provider 10/09/22 05/01/24 [place] [address] [facility] [place] 888827 Assigned Musculoskeletal Provider 10/09/22 05/01/24 Livan Sharif MD [address] [place] 022225 Assigned Heart and Vascular Provider 11/06/22 11/12/22 Catherine Cm MD [address] [facility] [address] [place] [address]135 Assigned Heart and Vascular Provider 11/13/22 05/27/23 Sydnie Martinez RN Personal Advocate & Liaison (PAL) Family Medicine 03/28/23 07/31/23 Alfonso Renteria MD 5775 [facility] 200 [place], [place] 153266 Assigned Neuroscience Provider 04/02/23 09/29/24 Cheng Todd PA-C [address] [place] [address] [phone] Assigned PCP 04/30/23 07/15/23 Radha Lomeli APRN FIBRE CEMENT MOULDER [address] [place], [place] 545[address] Assigned Heart and Vascular Provider 05/28/23 Jelena David OD [address] [facility] [address] Ophthalmology 06/15/23 Pao Joseph, VJ Personal Advocate & Liaison (PAL) Nurse 08/01/23 11/07/23 Esha Grimm PA-C [address] [place] [phone] Assigned PCP 07/16/23 Valery Veronica PA-C [address] [place] [address] Physician Poker Dealer Dermatology 09/19/23 Rey Tay MD [address] [place] [address] MD Gastroenterology 09/20/23 Rocky Zepeda DO [address] [place] [address] Physician Gastroenterology 09/20/23 Philip Dumont MD [address] [place] [address] Physician Ophthalmology 09/22/23 Meredith Carrera PA-C [address] [place] [address] Assigned Gastroenterology Provider 11/01/23 Neil Kent MD [address] [place] [address] Dermatology 11/02/23 [place] [address] [address] [facility] [place] [address] Neurological Surgery 12/26/23 Audrey Waite PA-C [address] [place] [address] Physician Poker Dealer Dermatology 02/28/24 Valery Veronica PA-C 251045 [place] [address] Physician Poker Dealer Dermatology 04/10/24 Herminia Hatch MD [address] [place], [place] 02426125 Assigned Rheumatology Provider 07/02/24 Jelena David OD [address] [facility] [place] [address] Ophthalmology 08/30/24 [place] [address] [place] [address] Assigned Neuroscience Provider 09/30/24 Maru Man PA-C [address] [place] [address] Physician Poker Dealer Dermatology 10/03/24 Maru Man PA-C [address] [place] [address] Physician Poker Dealer Dermatology 10/22/24 documented as of this encounter
--- OUTSIDE RECORDS SUMMARY | 2024-11-21 04:20 | XMS_ITS | Encounter Summary ---
Author Organization Lillian Address [address] [place] [address] 248[address] Care Team Providers Care Director Of Partnerships Name Role Phone Lita Oseguera Unavailable Unavailable Marija Edgar INKJET OPERATOR CUSHION ASSEMBLER Primary Care Provider + Chanelle Mccann INKJET OPERATOR CNM Unavailab le Marija Edgar APRN CUSHION ASSEMBLER Unavailable [phone] Mynor Broussard MD Unavailable [phone] Keisha Dotson MD Unavailable Galo Burrell MD Unavailable Unavailable Diana Desir [facility] Unavailable Rain Galaviz PA-C Unavailable Summer Lara MD Unavailable [phone] Summer Lara MD Unavailable [phone] Summer Lara MD Unavailable [phone] Tavia Wyatt MD Unavailable Johnny Murillo MD Unavailable Erica Farrell INKJET OPERATOR CUSHION ASSEMBLER Unavailable Teresita Bean [facility] Unavailable Tavia Wyatt MD Unavailable DesirDiana [facility] Unavailable Rich Barrett MD Unavailable Neil Kent MD Unavailable Roney StoryM Unavailable [phone] Erica Farrell APRN CUSHION ASSEMBLER Unavailable Diana Desir [facility] Unavailable [phone] Jelena David OD Unavailable Galo Burrell MD Unavailable Unavailable Livan Sharif MD Unavailable Livan Sharif MD Unavailable Catherine Cm MD Unavailable + Valery VeronicaC Unavailable [phone] Catherine Cm MD Unavailable + Johnny Murillo MD Unavailable [phone] Brea Quinn INKJET OPERATOR CUSHION ASSEMBLER Unavailable [phone] Brea Quinn INKJET OPERATOR CUSHION ASSEMBLER Unavailable [phone] Jose Francisco Johnson MD Unavailable Livan Sharif MD Unavailable Catherine Cm MD Unavailable + Sydnie Martinez RN Unavailable Unavailable Alfonso Renteria MD Unavailable Esha GrimmC Primary Care Provider Cheng Todd-C Unavailable [phone] Radha Lomeli APRN CUSHION ASSEMBLER Unavailable [phone] Jelena David OD Unavailable Pao Joseph RN Unavailable Unavailable Al[place], Esha M PA-C Unavailable [phone] Valery Veronica PA-C Unavailable Rey Tay MD Unavailable Rocky Zepeda DO Unavailable Philip Dumont MD Unavailable [phone] Meredith Carrera PA-C Unavailable Neil Kent MD Unavailable Juan Pablo Emmanuel MD Unavailable Audrey Waite PA-C Unavailable JeremíasValery damon PA-C Unavailable Herminia Hatch MD Unavailable Jelena David OD Unavailable Juan Pablo Emmanuel MD Unavailable [phone] Maru Man PA-C Unavailable Maru Man PA-C Unavailable Jelena David OD Unavailable Encounter Details Date Type Department Care Team (Late st Contact Info) Description 04/17/2021 MyC Medical Advice [address] [address] Marija Edgar APRN CUSHION ASSEMBLER [address] [facility] [place] [address] Social History Tobacco Use Types Packs/Day [...] do you attend chur or mosque services? More than 4 times [...] in a usp (including now)? No 08/11/2020 [place] Depression Scale Answer Date Recorded [place] Depression Score 5 01/14/2021 Last EPDS Self Harm Result Not on file 01/14 Education Answer Date Recorded What is the highest level of school you have completed or the highest degree you have received? 12th grade 08/07/2020 Comments No Sex and Gender Information Value Date Recorded Sex Assigned at Female 03/02/2021 5:45 PM CDT Legal Sex Female 4:13 AM HEALTH PLAN MANAGER Gender Identity Female 03/02/2021 5:45 PM [...] Description 11/21/2024 7:00 AM CDT Office Visit [facility] [place] [address] [phone] Maru Man PA-C [address] [address] 12/20/2024 2:30 PM CDT Office Visit [facility] [address] [place] [phone] Esha Grimm PA-C [id number] [place] [address] 04/16/2025 11:00 AM CDT Virtual Visit [facility] [address] [phone] Meredith Carrera PA-C [address] [place] [address] 905565 documented as of this encounter Visit Diagnoses Not on filedocumented in this encounter Additional Health Concerns Infection Onset Date Last Indicated Resolved Time Rule Out COVID-19 05/11/2021 05/11/2021 05/13/2021 10:18 AM CDT Rule Out COVID-19 07/13/2021 07/13/2021 07/14/2021 3:04 PM HEALTH PLAN MANAGER Rule Out COVID-19 07/18/2021 07/18/2021 07/20/2021 1:56 PM HEALTH PLAN MANAGER COVID-19 07/18/2021 07/18/2021 08/08/2021 11:3 9 PM HEALTH PLAN MANAGER Rule Out COVID-19 12/18/2021 12/18/2021 12/19/2021 11:34 AM CDT Rule Out COVID-19 02/24/2022 02/24/2022 02/25/2022 1:08 PM CDT Rule Out COVID-19 04/26/2022 04/26/2022 04/26/2022 6:47 AM CDT Rule Out COVID-19 05/17/2022 05/17/2022 05/17/2022 10:20 PM HEALTH PLAN MANAGER Rule Out COVID-19 06/09/2022 06/09/2022 06/09/2022 9:35 AM HEALTH PLAN MANAGER COVID-19 06/09/2022 06/09/2022 06/30/2022 11:4 1 PM HEALTH PLAN MANAGER Rule Out COVID-19 11/10/2022 11/10/2022 11/11/2022 [...] of this encounter Care Teams Director Of Partnerships Relationship Specialty Start Date End Date Marija Edgar APRN CUSHION ASSEMBLER PCP - General Nurse Practitioner 04/30/20 04/14/23 Esha Grimm PA-C [address] [place] [phone] PCP - General Family Medicine 05/04/23 Lita Oseguera Personal Advocate & Liaison (PAL) 02/28/20 03/27/23 Chanelle Mccann APRN CNM [address] [place], [facility] 200 [place] [address] Assigned OBGYN Provider 05/02/2005/09 Marija Edgar APRN CUSHION ASSEMBLER Assigned PCP 06/08/20 04/29/23 Mynor Broussard MD 6363 [facility] 500 [place] [address] Assigned Surgical Provider 06/01/20 11/28/21 Keisha Dotson MD 909 [place] [address] Assigned Neuroscience Provider 06/04/20 04/01/23 Galo Burrell MD Assigned Heart and Vascular Provider 10/05/20 04/02/22 Diana Desir, [facility] [address] [place], [place] 346446 Pharmacist Pharmacist 04/17/21 Rain Galaviz PA-C [address] [place] [address] [facility] 250 [place] [address] Physician Furnace Charging Machine Operator Dermatology 04/28/21 Summer Lara MD 606 [facility] [place], [place] 725[address] Assigned OBGYN Provider 05/10/2105/23 Summer Lara MD 606 24 [place], [place] 151054 Assigned OBGYN Provider 05/31/21 2 Summer Lara MD [address] [place] [address] [place], [place] 688994 Assigned OBGYN Provider 05/24/2105/30 Tavia Wyatt MD [address] [place] [address] 563914 Dermatology 07/14/21 Johnny Murillo MD [address] [facility] [address] [place], [place] 429104 Assigned Musculoskeletal Provider 08/30/21 03/17/22 Erica Farrell APRN CUSHION ASSEMBLER [address] [facility] [address] [place] [address] Nurse Practitioner Cardiovascular Disease 09/09/21 Teresita Bean [facility] [address] [place], [place] [phone] Pharmacist Pharmacist 09/24/21 09/29/21 Tavia Wyatt MD [address] [place], [place] 206720 Assigned Surgical Provider 11/29/21 05/07/22 [facility] 3033 [place], [place] 622406 Assigned MTM Pharmacist 01/02/22 Rich Barrett MD [facility] [place], [place] 691466 Physician Ophthalmology 01/21/22 Neil Kent MD 500 [place], [place] 293975 Dermatology 02/24/22 Roney Story DPM [address] [facility] [address] [place], [place] 974447 Assigned Musculoskeletal Provider 03/20/22 08/13/22 Erica Farrell APRN CUSHION ASSEMBLER 1700 [place] [address] Assigned Heart and Vascular Provider 04/03/22 04/16/22 Diana Desir, [facility] [address] [place] [address] Assigned MTM Pharmacist 04/07/22 [place] OD [address] [place] [address] Assigned Surgical Provider 05/08/22 10/08/22 Galo Burrell MD Assigned Heart and Vascular Provider 04/17/22 06/11/22 Livan Sharif MD [address] [address] [place] 304945 Cardiovascular Disease 05/14/22 Livan Sharif MD [address] [place] [address] [place] 803335 Assigned Heart and Vascular Provider 06/12/22 07/23/22 Catherine Cm MD [address] [place] [address] Cardiovascular Disease 07/21/22 Valery Veronica, [facility] 909 [place] [address] Physician Furnace Charging Machine Operator Dermatology 07/21/22 Catherine Cm MD [address] [facility] S [facility] [address] [place] 990375 Assigned Heart and Vascular Provider 07/24/22 11/05/22 Johnny Murillo MD [address] [place] [address] 498374 Assigned Musculoskeletal Provider 08/14/22 10/08/22 Brea Quinn APRN CUSHION ASSEMBLER [address] [place] [address] 592465 Nurse Practitioner Dermatology 09/21/22 Brea Quinn APRN CUSHION ASSEMBLER [address] [place] [address] [place] [address] Assigned Surgical Provider 10/09/22 05/01/24 [place] [address] [place] [address] Assigned Musculoskeletal Provider 10/09/22 05/01/24 Livan Sharif MD [address] [address] [place] 287495 Assigned Heart and Vascular Provider 11/06/22 11/12/22 Catherine Cm MD [address] [place] [address] Assigned Heart and Vascular Provider 11/13/22 05/27/23 Sydnie Martinez RN Personal Advocate & Liaison (PAL) Family Medicine 03/28/23 07/31/23 Alfonso Renteria MD [facility] [facility] 200 [place] [address] Assigned Neuroscience Provider 04/02/23 09/29/24 Cheng Todd PA-C [address] [place] [address] [id number] Assigned PCP 04/30/23 07/15/23 Radha Lomeli APRN CUSHION ASSEMBLER [address] [place] [address] Assigned Heart and Vascular Provider 05/28/23 Jelena David OD 3[address] [facility] [place] [address] Ophthalmology 06/15/23 Pao Joseph, VJ Personal Advocate & Liaison (PAL) Nurse 08/01/23 11/07/23 Esha Grimm PA-C [address] [place] [phone] Assigned PCP 07/16/23 Valery Veronica PA-C 909 [place], [place] 569675 Physician Furnace Charging Machine Operator Dermatology 09/19/23 Rey Tay MD [address] [place] [address] 258985 MD Gastroenterology 09/20/23 Rocky Zepeda DO [address] [place] [address] Physician Gastroenterology 09/20/23 Philip Dumont MD [address] [place] [address] 296795 Physician Ophthalmology 09/22/23 Meredith Carrera PA-C [address] [place] [address] 000655 Assigned Gastroenterology Provider 11/01/23 Neil Kent MD [address] [place] [address] 449500 Dermatology 11/02/23 [place] [address] [address] Neurological Surgery 12/26/23 Audrey Waite PA-C [address] [place] [address] Physician Furnace Charging Machine Operator Dermatology 02/28/24 Valery Veronica PA-C 095869 [address], [place] [address] Physician Furnace Charging Machine Operator Dermatology 04/10/24 Herminia Hatch MD [address] [place] [address] Assigned Rheumatology Provider 07/02/24 Jelena David OD [address] [place] [address] [place] [address] Ophthalmology 08/30/24 [place] [address] [place] [place] [address] Assigned Neuroscience Provider 09/30/24 Maru Man PA-C [address] [place] [address] Physician Furnace Charging Machine Operator Dermatology 10/03/24 Maru Man PA-C [address] [place] [address] Physician Furnace Charging Machine Operator Dermatology 10/22/24 Jelena David OD [address] [place] [address] [place] [address] Assigned Surgical Provider 10/31/24 documented as of this encounter
--- OUTSIDE RECORDS SUMMARY | 2024-11-21 04:20 | XMS_ITS | Encounter Summary ---
Author Organization Johnson Address [address] [place] [address] Care Team Providers Care Day Care Aide Name Role Phone Lita Oseguera Unavailable Unavailable Marija Edgar APRN FLYER BUILDER Primary Care Provider + Marija Edgar APRN FLYER BUILDER Unavailable [phone] Keisha Dotson MD Unavailable Diana Desir [facility] Unavailable Rain Galaviz PA-C Unavailable [phone] Tavia Wyatt MD Unavailable Erica Farrell APRN FLYER BUILDER Unavailable Rich Barrett MD Unavailable [phone] Neil Kent MD Unavailable Diana Desir [facility] Unavailable Livan Sharif MD Unavailable Catherine Cm MD Unavailable + Valery Veronica PA-C Unavailable [phone] Catherine Cm MD Unavailable + Brea Quinn SPRAY PAINTING MACHINE OPERATOR FLYER BUILDER Unavailable [phone] Brea Quinn SPRAY PAINTING MACHINE OPERATOR FLYER BUILDER Unavailable [phone] Jose Francisco Johnson MD Unavailable Livan Sharif MD Unavailable ChivoraynaCatherine boothe MD Unavailable + Sydnie Martinez RN Unavailable Unavailable Alfonso Renteria MD Unavailable Esha Grimm PA-C Primary Care Provider Cheng Todd PA-C Unavailable [phone] Radha Lomeli SPRAY PAINTING MACHINE OPERATOR FLYER BUILDER Unavailable [phone] Jelena David OD Unavailable [phone] Pao Joseph RN Unavailable Unavailable Esha Grimm PA-C Unavailable Valery Veronica PA-C Unavailable Rey Tay MD Unavailable Rocky Zepeda DO Unavailable Philip Dumont MD Unavailable [phone] Meredith Carrera PA-C Unavailable [phone] Neil Kent MD Unavailable Juan Pablo Emmanuel MD Unavailable Audrey Waite PA-C Unavailable [phone] Valery Veronica PA-C Unavailable Herminia Hatch MD Unavailable Jelena David OD Unavailable Juan Pablo Emmanuel MD Unavailable Maru Man PA-C Unavailable [phone] Maru Man PA-C Unavailable [phone] Jelena Davide OD Unavailable Encounter Details Date Type Department Care Team (Late st Contact Info) Description 10/22/[address] [facility] [place] [address] [facility] [address] [place] [address] [place] [address] [facility] 300 [place] [address] Social History Tobacco Use Types Packs/Day Years [...] How often do you attend mormonism or tenriism serv ices? Never 09/22/2021 Do [...] Answer Date Recorded PHQ-2 Score 1 10/11/2022 [facility] - Occupational Stress [...] in a detention (including now)? No 09/22/2021 [place] Depression Scale Answer Date Recorded [place] Depression Score 5 01/14/2021 Last EPDS Self Harm Result Not on file 01/14 Education Answer Date Recorded What is the highest level of school you have completed or the highest degree you have received? 12th grade 08/07/2020 Comments No Sex and Gender Information Value Date Recorded Sex Assigned at Female 03/02/2021 5:45 PM CDT Legal Sex Female 4:13 AM MINING AND QUARRYING MACHINERY REPAIRER Gender Identity Female 03/02/2021 5:45 PM [...] Upcoming Encounters Date Type Department Care Team ([facility] st Contact Info) Description 11/21/2024 7:00 AM CDT Office Visit [facility] [address] [phone] Maru Man PA-C [address] [place] [address] 12/20/2024 2:30 PM CDT Office Visit [address] [address] Esha Grimm PA-C [address] [place] [address] 04/16/2025 11:00 AM CDT Virtual Visit [facility] [address] 4th [place] [phone] Meredith Carrera PA-C [address] [place] [address] 598665 documented as of this encounter Visit Diagnoses [...] documented as of this encounter Care Teams Day Care Aide Relationship Specialty Start Date End Date Marija Edgar APRN CNP PCP - General Nurse Practitioner 04/30/20 04/14/23 Esha Grimm PA-C [address] [place] [phone] PCP - General Family Medicine 05/04/23 Lita Oseguera Personal Advocate & Liaison (PAL) 02/28/20 03/27/23 Marija Edgar APRN FLYER BUILDER Assigned PCP 06/08/20 04/29/23 Keisha Dotson MD 909 [place], [place] 894215 Assigned Neuroscience Provider 06/04/20 04/01/23 [facility] [address] [place], [place] 272816 Pharmacist Pharmacist 04/17/21 Rain Galaviz PA-C [address] [place] [address] [address] [place] [address] Physician Bill Of Materials Clerk Dermatology 04/28/21 Tavia Wyatt MD [address] [place] [address] DR [facility] [place] [place] [phone] Dermatology 07/14/21 Erica Farrell APRN FLYER BUILDER [address] [place] [address] Nurse Practitioner Cardiovascular Disease 09/09/21 Rich Barrett MD [address] [place] 312975 Physician Ophthalmology 01/21/22 Neil Kent MD 500 [place], [place] 819505 Dermatology 02/24/22 Diana Desir, [facility] 3033 [place], [place] 632706 Assigned MTM Pharmacist 04/07/22 Livan Sharif MD [address] [address] [place] 8[address]35 Cardiovascular Disease 05/14/22 Catherine Cm MD [address] [place] 025165 Cardiovascular Disease 07/21/22 Valery Veronica, PA-C [address] [place] [address] 103985 Physician Bill Of Materials Clerk Dermatology 07/21/22 Catherine Cm MD [address] [facility] [address] [place] 426005 Assigned Heart and Vascular Provider 07/24/22 11/05/22 Brea Quinn APRN FLYER BUILDER [address] [place] [address] 272905 Nurse Practitioner Dermatology 09/21/22 Brea Quinn APRN FLYER BUILDER [address] [place] [address] [facility] 618322 Assigned Surgical Provider 10/09/22 05/01/24 [place] [address] [place] [address] SD 803597 Assigned Musculoskeletal Provider 10/09/22 05/01/24 Livan Sharif MD [address] [place] 213465 Assigned Heart and Vascular Provider 11/06/22 11/12/22 Catherine Cm MD [address] [place] [address] Assigned Heart and Vascular Provider 11/13/22 05/27/23 Sydnie Martinez, RN Personal Advocate & Liaison (PAL) Family Medicine 03/28/23 07/31/23 Alfonso Renteria MD 5775 [facility] 200 [place] [address] Assigned Neuroscience Provider 04/02/23 09/29/24 Cheng Todd PA-C [address] [place] [address] [id number] Assigned PCP 04/30/23 07/15/23 Radha Lomeli, ARLENE FLYER BUILDER [address] [place] [address] Assigned Heart and Vascular Provider 05/28/23 Jelena David OD [facility] [facility] [place] [address] Ophthalmology 06/15/23 Pao Joseph, VJ Personal Advocate & Liaison (PAL) Nurse 08/01/23 11/07/23 Esha Grimm PA-C [address] [place] [phone] Assigned PCP 07/16/23 Valery Veronica PA-C 9 [place], [place] 360835 Physician Bill Of Materials Clerk Dermatology 09/19/23 Rey Tay MD [address] [place] [address] 870735 MD Gastroenterology 09/20/23 Rocky Zepeda DO [address] [place] [address] 914545 Physician Gastroenterology 09/20/23 Philip Dumont MD [address] [place] [address] 382775 Physician Ophthalmology 09/22/23 Meredith Carrera PA-C [address] [place] [address] 749305 Assigned Gastroenterology Provider 11/01/23 Neil Kent MD [address] [address] Dermatology 11/02/23 [place] [address] [address] Neurological Surgery 12/26/23 Audrey Waite PA-C [address] [place] [address] Physician Bill Of Materials Clerk Dermatology 02/28/24 Valery Veronica PA-C [address] [facility] [place] [address] Physician Bill Of Materials Clerk Dermatology 04/10/24 Herminia Hatch MD [facility]5 [place] [address] Assigned Rheumatology Provider 07/02/24 Jelena David OD [address] [place] [address] [place] [address] Ophthalmology 08/30/24 [place] [address] [place] [address] Assigned Neuroscience Provider 09/30/24 Maru Man PA-C [address] [place] [address] Physician Bill Of Materials Clerk Dermatology 10/03/24 Maru Man PA-C [address] [place] [address] Physician Bill Of Materials Clerk Dermatology 10/22/24 Jelena David OD [address] [place] [address] [place] [address] Assigned Surgical Provider 10/31/24 documented as of this encounter
--- OUTSIDE RECORDS SUMMARY | 2024-11-21 04:20 | XMS_ITS | Encounter Summary ---
Author Organization [facility] Address [address] [place] [address] Care Team Providers Care Facilities Maintenance Assistant Name Role Phone Lita Oseguera Unavailable Unavailable Marija Edgar APRN IT SALES EXECUTIVE Primary Care Provider + Marija Edgar APRN IT SALES EXECUTIVE Unavailable Keisha Dotson MD Unavailable Diana Desir [facility] Unavailable [phone] Rain Galaviz PA-C Unavailable Tavia Wyatt MD Unavailable Erica Farrell APRN IT SALES EXECUTIVE Unavailable Rich Barrett MD Unavailable [phone] Neil Kent MD Unavailable Diana Desir [facility] Unavailable Jelena David OD Unavailable Livan Sharif MD Unavailable Catherine Cm MD Unavailable + Valery Veronica PA-C Unavailable Catherine Cm MD Unavailable + Johnny Murillo MD Unavailable [phone] Brea Quinn AGRICULTURAL AIRCRAFT PILOT IT SALES EXECUTIVE Unavailable [phone] Brea Quinn AGRICULTURAL AIRCRAFT PILOT IT SALES EXECUTIVE Unavailable [phone] Jose Francisco Johnson MD Unavailable Livan Sharif MD Unavailable Catherine Cm MD Unavailable + Sydnie Martinez RN Unavailable Unavailable Alfonso Renteria MD Unavailable [phone] Esha Grimm PA-C Primary Care Provider Cheng Todd PA-C Unavailable [phone] Radha Lomeli APRN IT SALES EXECUTIVE Unavailable Jelena David OD Unavailable Pao Joseph RN Unavailable Unavailable Esha Grimm PA-C Unavailable [phone] Valery Veronica PA-C Unavailable Rey Tay MD Unavailable Rocky Zepeda DO Unavailable Philip Dumont MD Unavailable Meredith Carrera PA-C Unavailable [phone] Neil Kent MD Unavailable Juan Pablo Emmanuel MD Unavailable Audrey Waite PA-C Unavailable Valery Veronica PA-C Unavailable Herminia Hatch MD Unavailable Jelena David OD Unavailable Juan Pablo Emmanuel MD Unavailable Maru Man PA-C Unavailable + Maru Man PA-C Unavailable + Jelena David OD Unavailable [phone] Encounter Details Date Type Department Care Team (Late st Contact Info) Description 10/06/2022 MyC Medical Advice [facility] [address] [facility] [place] [address] Brea Quinn APRN [facility] 6401 [facility] [place] [address] Social History Tobacco Use Types Packs/Day Years [...] How often do you attend mormonism or baptism serv ices? Never 09/22/2021 Do [...] points; Administer PHQ-9 if positive 1 10/10/2022 [facility] - Occupational Stress Questionnaire [...] in a residential (including now)? No 09/22/2021 [place] Depression Scale Answer Date Recorded [place] [...] Legal Sex Female 4:13 AM OVEN OPERATOR Gender Identity Female 03/02/2021 5:45 PM [...] AM CDT Office Visit [facility] [address] [phone] Maru Man PA-C [address] [place] [address] 12/20/2024 2:30 PM CDT Office Visit [facility] [address] [place] [phone] Esha Grimm PA-C [address] [place] [phone] 04/16/2025 11:00 AM CDT Virtual Visit [facility] [address] [place] [phone] Meredith Carrera PA-C [address]09 [place] [address] documented as of this encounter Visit Diagnoses [...] Depression Total Score: 5 08/27/19 1:14 PM OVEN OPERATOR documented as of this encounter Care Teams Facilities Maintenance Assistant Relationship Specialty Start Date End Date Marija Edgar APRN IT SALES EXECUTIVE PCP - General Nurse Practitioner 04/30/20 04/14/23 Esha Grimm PA-C [address] [place] [phone] PCP - General Family Medicine 05/04/23 Lita Oseguera Personal Advocate & Liaison (PAL) 02/28/20 03/27/23 Marija Edgar APRN IT SALES EXECUTIVE Assigned PCP 06/08/20 04/29/23 Keisha Dotson MD [address] [place] [address] Assigned Neuroscience Provider 06/04/20 04/01/23 Diana Desir [facility] 30[address] [place] [address] Pharmacist Pharmacist 04/17/21 Rain Galaviz PA-C [address] [place] [address] [address] [place] [address] Physician Studio Engineer Dermatology 04/28/21 Tavia Wyatt MD [address] [place] [address] [address] [facility] [place] [address] Dermatology 07/14/21 Erica Farrell APRN IT SALES EXECUTIVE [address] [place], [place] [address] Nurse Practitioner Cardiovascular Disease 09/09/21 Rich Barrett MD [address] [place], [place] [address] Physician Ophthalmology 01/21/22 Neil Kent MD 500 [place] [address] Dermatology 02/24/22 Diana Desir, [facility] [address] [place] [address] Assigned MTM Pharmacist 04/07/22 Jelena David OD [address] [facility] [place] [address] Assigned Surgical Provider 05/08/22 10/08/22 Livan Sharif MD [address] [place] [address] Cardiovascular Disease 05/14/22 Catherine Cm MD [address] [place] [address] Cardiovascular Disease 07/21/22 Valery Veronica, PA-C [address] [place] [address] Physician Studio Engineer Dermatology 07/21/22 Catherine Cm MD [address] [place] [address] Assigned Heart and Vascular Provider 07/24/22 11/05/22 Johnny Murillo MD [facility] [address] [phone] Assigned Musculoskeletal Provider 08/14/22 10/08/22 Brea Quinn APRN IT SALES EXECUTIVE [address] [place] [address] 551515 Nurse Practitioner Dermatology 09/21/22 Brea Quinn APRN IT SALES EXECUTIVE [address] [place] [address] [place] [address] Assigned Surgical Provider 10/09/22 05/01/24 [place] [address] [address] [facility] [address] [place] [address] Assigned Musculoskeletal Provider 10/09/22 05/01/24 Livan Sharif MD [address] [place], [place] 822[address] Assigned Heart and Vascular Provider 11/06/22 11/12/22 Catherine Cm MD [address] [place] [address] Assigned Heart and Vascular Provider 11/13/22 05/27/23 Sydnie Martinez RN Personal Advocate & Liaison (PAL) Family Medicine 03/28/23 07/31/23 Alfonso Renteria MD 5775 [facility] 200 [place] [address] Assigned Neuroscience Provider 04/02/23 09/29/24 Cheng Todd PA-C [address] [place] [address] [phone] Assigned PCP 04/30/23 07/15/23 Radha Lomeli, ARLENE IT SALES EXECUTIVE [address] [place] [address] Assigned Heart and Vascular Provider 05/28/23 Jelena David OD [facility] [facility] [place] [address] Ophthalmology 06/15/23 Pao Joseph RN Personal Advocate & Liaison (PAL) Nurse 08/01/23 11/07/23 Esha Grimm PA-C [address] [place] [phone] Assigned PCP 07/16/23 Valery Veronica PA-C [address] [place] [address] 468495 Physician Studio Engineer Dermatology 09/19/23 Rey Tay MD [address] [place] [address] 069965 MD Gastroenterology 09/20/23 Rocky Zepeda DO [address] [place] [address] 932255 Physician Gastroenterology 09/20/23 Philip Dumont MD [address] [place] [address] 518465 Physician Ophthalmology 09/22/23 Meredith Carrera PA-C [address] [place] [address] 048055 Assigned Gastroenterology Provider 11/01/23 Neil Kent MD [address] [address] Dermatology 11/02/23 [place] [address] [place] [address] Neurological Surgery 12/26/23 Audrey Waite PA-C [address] [place] [address], [place] [address] Physician Studio Engineer Dermatology 02/28/24 Valery Veronica PA-C [address] [place] [address] Physician Studio Engineer Dermatology 04/10/24 Herminia Hatch MD [address] [place] [address] Assigned Rheumatology Provider 07/02/24 Jelena David OD [address] [place] [address] [place] [address] Ophthalmology 08/30/24 [place] [address] [place] [address] Assigned Neuroscience Provider 09/30/24 Maru Man PA-C [address] [place] [address] Physician Studio Engineer Dermatology 10/03/24 Maru Man PA-C [address] [place] [address] Physician Studio Engineer Dermatology 10/22/24 Jelena David OD [address] [place] [address] [place] [address] Assigned Surgical Provider 10/31/24 documented as of this encounter
--- OUTSIDE RECORDS SUMMARY | 2024-11-21 04:20 | XMS_ITS | Encounter Summary ---
Author Organization [facility] Address [address] [place] [address] Care Team Providers Care Ticket Sales Supervisor Name Role Phone Lita Oseguera Unavailable Unavailable Marija Edgar HYDROGEN POWER PLANT ENGINEER GRADER OPERATOR Primary Care Provider + Chanelle Mccann HYDROGEN POWER PLANT ENGINEER CNM Unavailab le Marija Edgar APRN GRADER OPERATOR Unavailable [phone] Mynor Broussard MD Unavailable [phone] Keisha Dotson MD Unavailable [phone] Galo Burrell MD Unavailable Unavailable Diana Desir [facility] Unavailable Rain Galaviz PA-C Unavailable Summer Lara MD Unavailable [phone] Summer Lara MD Unavailable [phone] Summer Lara MD Unavailable [phone] Tavia Wyatt MD Unavailable Johnny Murillo MD Unavailable [phone] Erica Farrell HYDROGEN POWER PLANT ENGINEER GRADER OPERATOR Unavailable Teresita Bean [facility] Unavailable Tavia Wyatt MD Unavailable DesirDiana [facility] Unavailable Rich Barrett MD Unavailable Neil Kent MD Unavailable Roney StoryM Unavailable [phone] Erica Farrell APRN GRADER OPERATOR Unavailable Diana Desir [facility] Unavailable [phone] Jelena David OD Unavailable Galo Burrell MD Unavailable Unavailable Livan Sharif MD Unavailable Livan Sharif MD Unavailable Catherine Cm MD Unavailable + Valery VeronicaC Unavailable [phone] Catherine Cm MD Unavailable + Johnny Murillo MD Unavailable [phone] Brea Quinn HYDROGEN POWER PLANT ENGINEER GRADER OPERATOR Unavailable [phone] Brea Quinn HYDROGEN POWER PLANT ENGINEER GRADER OPERATOR Unavailable [phone] Jose Francisco Johnson MD Unavailable Livan Sharif MD Unavailable Catherine Cm MD Unavailable + Sydnie Martinez RN Unavailable Unavailable Alfonso Renteria MD Unavailable Esha GrimmC Primary Care Provider Cheng Todd-C Unavailable [phone] Radha Lomeli APRN GRADER OPERATOR Unavailable [phone] Jelena David OD Unavailable Pao Joseph RN Unavailable Unavailable [place], Esha M PA-C Unavailable [phone] Valery Veronica PA-C Unavailable Rey Tay MD Unavailable Rocky Zepeda DO Unavailable Philip Dumont MD Unavailable Meredith Carrera PA-C Unavailable Neil Kent MD Unavailable Juan Pablo Emmanuel MD Unavailable [phone] Audrey Waite PA-C Unavailable Valery Veronica PA-C Unavailable Herminia Hatch MD Unavailable Jelena David OD Unavailable Juan Pablo Emmanuel MD Unavailable [phone] Maru Man PA-C Unavailable Maru Man PA-C Unavailable Jelena David OD Unavailable Encounter Details Date Type Department Care Team (Late st Contact Info) Description 04/17/2021 [facility] [address] [address] Diana Desir, [facility] [address] [place], [place] [phone] Social History Tobacco Use Types Packs/Day Years [...] in a correction (including now)? No 08/11/2020 [place] Depression Scale Answer Date Recorded [place] Depression Score 5 01/14/2021 Last EPDS Self Harm Result Not on file 01/14 Education Answer Date Recorded What is the highest level of school you have completed or the highest degree you have received? 12th grade 08/07/2020 Comments No Sex and Gender Information Value Date Recorded Sex Assigned at Female 03/02/2021 5:45 PM CDT Legal Sex Female 4:13 AM LANDSCAPE ARCHITECT AND PLANNER Gender Identity Female 03/02/2021 5:45 PM [...] Description 11/21/2024 7:00 AM CDT Office Visit [facility] [address] [address] Maru Man PA-C [address] [address] 12/20/2024 2:30 PM CDT Office Visit [facility] [address] [place] [phone] Esha Grimm PA-C [address] [place] [phone] 04/16/2025 11:00 AM CDT Virtual Visit [facility] [address] [phone] Meredith Carrera PA-C [address] [place] [address] 012885 documented as of this encounter Visit Diagnoses Not on filedocumented in this encounter Additional Health Concerns Infection Onset Date Last Indicated Resolved Time Rule Out COVID-19 05/11/2021 05/11/2021 05/13/2021 10:18 AM CDT Rule Out COVID-19 07/13/2021 07/13/2021 07/14/2021 3:04 PM LANDSCAPE ARCHITECT AND PLANNER Rule Out COVID-19 07/18/2021 07/18/2021 07/20/2021 1:56 PM LANDSCAPE ARCHITECT AND PLANNER COVID-19 07/18/2021 07/18/2021 08/08/2021 11:3 9 PM LANDSCAPE ARCHITECT AND PLANNER Rule Out COVID-19 12/18/2021 12/18/2021 12/19/2021 11:34 AM CDT Rule Out COVID-19 02/24/2022 02/24/2022 02/25/2022 1:08 PM CDT Rule Out COVID-19 04/26/2022 04/26/2022 04/26/2022 6:47 AM CDT Rule Out COVID-19 05/17/2022 05/17/2022 05/17/2022 10:20 PM LANDSCAPE ARCHITECT AND PLANNER Rule Out COVID-19 06/09/2022 06/09/2022 06/09/2022 9:35 AM LANDSCAPE ARCHITECT AND PLANNER COVID-19 06/09/2022 06/09/2022 06/30/2022 11:4 1 PM LANDSCAPE ARCHITECT AND PLANNER Rule Out COVID-19 11/10/2022 11/10/2022 11/11/2022 [...] as of this encounter Care Teams Ticket Sales Supervisor Relationship Specialty Start Date End Date Marija Edgar APRN GRADER OPERATOR PCP - General Nurse Practitioner 04/30/20 04/14/23 Esha Grimm PA-C [address] [place] [phone] PCP - General Family Medicine 05/04/23 Lita Oseguera Personal Advocate & Liaison (PAL) 02/28/20 03/27/23 Chanelle Mccann APRN CNM [id number] [place] [address], [address] [place] [address] Assigned OBGYN Provider 05/02/2005/09 Marija Edgar APRN CNP Assigned PCP 06/08/20 04/29/23 Mynor Broussard MD 6[address] [facility] 500 [place] [address] Assigned Surgical Provider 06/01/20 11/28/21 Keisha Dotson MD 909 [place] [address] Assigned Neuroscience Provider 06/04/20 04/01/23 Galo Burrell MD Assigned Heart and Vascular Provider 10/05/20 04/02/22 [facility] [address] [place] [address] Pharmacist Pharmacist 04/17/21 Rain Galaviz PA-C [address] [place] [address] [address] [place] [address] Physician Concrete Buildings Assembler Dermatology 04/28/21 Summer Lara MD [address] [place] [address] Assigned OBGYN Provider 05/10/2105/23 Summer Lara MD [address] [place] [address] Assigned OBGYN Provider 05/31/21 2 Summer Lara MD [address] [place], [place] 401[address] Assigned OBGYN Provider 05/24/2105/30 Tavia Wyatt MD [address] [place], [place] 0[address] Dermatology 07/14/21 Johnny Murillo MD [address] [place], [place] [address]694 Assigned Musculoskeletal Provider 08/30/21 03/17/22 Erica Farrell APRN GRADER OPERATOR [address] [facility] [address] [place] [address] Nurse Practitioner Cardiovascular Disease 09/09/21 Teresita Bean [facility] [address] [place] [place], [place] [phone] Pharmacist Pharmacist 09/24/21 09/29/21 Tavia Wyatt MD [facility] [place], [place] 463230 Assigned Surgical Provider 11/29/21 05/07/22 Diana Desir [facility] [address] [place] [address] Assigned MTM Pharmacist 01/02/22 Rich Barrett MD [address] [place] [address] Physician Ophthalmology 01/21/22 Neil Kent MD 500 [place] [address] Dermatology 02/24/22 Roney Story DPM [address] [facility] [address] [place] [address] Assigned Musculoskeletal Provider 03/20/22 08/13/22 Erica Farrell APRN GRADER OPERATOR 1700 [place] [address] Assigned Heart and Vascular Provider 04/03/22 04/16/22 Diana Desir, [facility] [address] [place] [address] Assigned MTM Pharmacist 04/07/22 Jelena David OD [address] [place] [address] Assigned Surgical Provider 05/08/22 10/08/22 Galo Burrell MD Assigned Heart and Vascular Provider 04/17/22 06/11/22 Livan Sharif MD [address] [place] [address] Cardiovascular Disease 05/14/22 Livan Sharif MD [address] [place] [address] Assigned Heart and Vascular Provider 06/12/22 07/23/22 Catherine Cm MD [address] [place] [address] Cardiovascular Disease 07/21/22 Valery Veronica, PAUcheC [address] [place] [address] Physician Concrete Buildings Assembler Dermatology 07/21/22 Catherine Cm MD [address] [facility] [address] [place] [address] Assigned Heart and Vascular Provider 07/24/22 11/05/22 Johnny Murillo MD [address] [place] [address] Assigned Musculoskeletal Provider 08/14/22 10/08/22 Brea Quinn APRN GRADER OPERATOR [address] [place] [address] 438195 Nurse Practitioner Dermatology 09/21/22 Brea Quinn APRN GRADER OPERATOR [address] [place] [address] [place] [address] Assigned Surgical Provider 10/09/22 05/01/24 [place] [address] [place] [address] Assigned Musculoskeletal Provider 10/09/22 05/01/24 Livan Sharif MD [address] [place] [address] Assigned Heart and Vascular Provider 11/06/22 11/12/22 Catherine Cm MD [address] [place] [address] Assigned Heart and Vascular Provider 11/13/22 05/27/23 Sydnie Martinez RN Personal Advocate & Liaison (PAL) Family Medicine 03/28/23 07/31/23 Alfonso Renteria MD [address] [facility] [address] [place] [address] Assigned Neuroscience Provider 04/02/23 09/29/24 Cheng Todd PA-C [address] [place] [address] [phone] Assigned PCP 04/30/23 07/15/23 Radha Lomeli, ARLENE GRADER OPERATOR [address] [place] [address]65 Assigned Heart and Vascular Provider 05/28/23 Jelena David OD [address] [place] [address] Ophthalmology 06/15/23 Pao Joseph, VJ Personal Advocate & Liaison (PAL) Nurse 08/01/23 11/07/23 Esha Grimm PA-C [address] [place] [address] Assigned PCP 07/16/23 Valery Veronica PA-C [address]09 [place], [place] 7[address]15 Physician Concrete Buildings Assembler Dermatology 09/19/23 Rey Tay MD [address] [place] [address] MD Gastroenterology 09/20/23 Rocky Zepeda DO [address] [place] [address] 431835 Physician Gastroenterology 09/20/23 Philip Dumont MD [address] [place] [address] 050305 Physician Ophthalmology 09/22/23 Meredith Carrera PA-C [address] [place] [address] 072215 Assigned Gastroenterology Provider 11/01/23 Neil Kent MD [address] [address] Dermatology 11/02/23 [place] [address] [facility] [place] [address] Neurological Surgery 12/26/23 Audrey Waite PA-C [address] [place] [address] Physician Concrete Buildings Assembler Dermatology 02/28/24 Valery Veronica PA-C 04[address]97 [place] [address] Physician Concrete Buildings Assembler Dermatology 04/10/24 Herminia Hatch MD [address] [place] [address] Assigned Rheumatology Provider 07/02/24 [place] [address] [place] [address] [place] [address] Ophthalmology 08/30/24 [place] [address] [place] [address] Assigned Neuroscience Provider 09/30/24 Maru Man PA-C [address] [place] [address] Physician Concrete Buildings Assembler Dermatology 10/03/24 Maru Man PA-C [address] [place] [address] Physician Concrete Buildings Assembler Dermatology 10/22/24 Jelena David OD [address] [facility] [place] [address] Assigned Surgical Provider 10/31/24 documented as of this encounter
--- OUTSIDE RECORDS SUMMARY | 2024-11-21 04:21 | XMS_ITS | Encounter Summary ---
Author Organization [place] Address [address] [place] [address] Care Team Providers Care Computer Systems Manager Name Role Phone Lita Oseguera Unavailable Unavailable Marija Edgar APRN FIRST GRADE TEACHER Primary Care Provider + Marija Edgar APRN FIRST GRADE TEACHER Unavailable [phone] Keisha Dotson MD Unavailable Diana Desir [facility] Unavailable Rain Galaviz PA-C Unavailable Tavia Wyatt MD Unavailable Erica Farrell APRN FIRST GRADE TEACHER Unavailable Rich Barrett MD Unavailable [phone] Neil Kent MD Unavailable Roney Story DPM Unavailable Diana Desir [facility] Unavailable Jelena David OD Unavailable Livan Sharif MD Unavailable Livan Sharif MD Unavailable Catherine Cm MD Unavailable + Valery Veronica PA-C Unavailable Catherine Cm MD Unavailable + Johnny Murillo MD Unavailable [phone] Brea Quinn GOVERNMENT GUARD FIRST GRADE TEACHER Unavailable [phone] Brea Quinn GOVERNMENT GUARD FIRST GRADE TEACHER Unavailable [phone] Jose Francisco Johnson MD Unavailable Livan Sharif MD Unavailable Catherine Cm MD Unavailable + Sydnie Martinez RN Unavailable Unavailable Alfonso Renteria MD Unavailable [phone] Esha Grimm PA-C Primary Care Provider Cheng Todd PA-C Unavailable [phone] Radha Lomeli GOVERNMENT GUARD FIRST GRADE TEACHER Unavailable Jelena David OD Unavailable Pao Joseph RN Unavailable Unavailable Esha Grimm PA-C Unavailable [phone] Valery Veronica PA-C Unavailable Rey Tay MD Unavailable Rocky Zepeda DO Unavailable Philip Dumont MD Unavailable Meredith Carrera PA-C Unavailable Neil Kent MD Unavailable Juan Pablo Emmanuel MD Unavailable Audrey Waite PA-C Unavailable Valery Veronica PA-C Unavailable Herminia Hatch MD Unavailable Jelena David OD Unavailable Juan Pablo Emmanuel MD Unavailable [phone] Maru Man PA-C Unavailable [phone] Maru Man PA-C Unavailable [phone] Reason for Visit * Reason Onset Date Comments Appointment 06/14/2022 Stress test and monitor on the same day Encounter Details Date Type Department Care Team (Late st Contact Info) Description 06/14/2022 Telephone [facility] [address] [facility] [address] [place] [phone] Livan Sharif MD [address] [facility] [address] [place] [address] Appointment (Stress test [...] Answer Date Recorded PHQ-2 Score 1 10/24/2024 [facility] [...] exercise at this level? 20 min 05/07/2024 [place] Depression Scale Answer Date Recorded [place] Depression Score 5 01/14/2021 Last EPDS Self [...] CDT Legal Sex Female 4:13 AM DIRECTOR OF CASINO MARKETING Gender Identity Female 03/02/2021 5:45 PM CDT [...] Matute MA - 06/14/2022 9:30 AM [facility] Phone Message May a [...] Not Applicable Thank you! [facility] CTOR OF CASINO MARKETING documented in this encounter Plan of Treatment Upcoming Encounters Date Type Department Care Team (Late st Contact Info) Description 11/21/2024 7:00 AM CDT Office Visit [facility] [address] [phone] Maru Man PA-C [address] [address] 12/20/2024 2:30 PM CDT Office Visit [address] [phone] Esha Grimm PA-C [id number] [place] [phone] 04/16/2025 11:00 AM CDT Virtual Visit [facility] [address]th [place] [phone] Meredith Carrera PA-C [address] [place] [address] documented as of this encounter Visit Diagnoses Not on filedocumented in this encounter Additional Health Concerns Infection Onset Date Last Indicated Resolved Time COVID-19 06/09/2022 06/09/2022 06/30/2022 11:4 1 PM DIRECTOR OF CASINO MARKETING Rule Out COVID-19 11/10/2022 11/10/2022 11/11/2022 12:17 [...] as of this encounter Care Teams Computer Systems Manager Relationship Specialty Start Date End Date Marija Edgar APRN FIRST GRADE TEACHER PCP - General Nurse Practitioner 04/30/20 04/14/23 Esha Grimm PA-C [address] [place] [phone] PCP - General Family Medicine 05/04/23 Lita Oseguera Personal Advocate & Liaison (PAL) 02/28/20 03/27/23 Marija Edgar APRN FIRST GRADE TEACHER Assigned PCP 06/08/20 04/29/23 Keisha Dotson MD 9 [place] [address] Assigned Neuroscience Provider 06/04/20 04/01/23 Diana Desir, [facility] [address] [place] [address] Pharmacist Pharmacist 04/17/21 Rain Galaviz PA-C [address] [place] [address] [place] [address] Physician Screedman/Laborer Dermatology 04/28/21 Tavia Wyatt MD [address] [place] [address] [place] [address] Dermatology 07/14/21 Erica Farrell APRN FIRST GRADE TEACHER [address] [place] [address] Nurse Practitioner Cardiovascular Disease 09/09/21 Rich Barrett MD [address] [place] [address] Physician Ophthalmology 01/21/22 Neil Kent MD 500 [place] [address] Dermatology 02/24/22 Roney Story DPM [address] [facility] 300 [place] [address] Assigned Musculoskeletal Provider 03/20/22 08/13/22 Diana Desir, [facility] [address] [place] [address] Assigned MTM Pharmacist 04/07/22 Jelena David OD [address] [facility] [place] [address] Assigned Surgical Provider 05/08/22 10/08/22 Livan Sharif MD [address] [place] [address] [place] 487405 Cardiovascular Disease 05/14/22 Livan Sharif MD [address] [place] [address] [place] [address] Assigned Heart and Vascular Provider 06/12/22 07/23/22 Catherine Cm MD [address] [place] [address] [place] [address] Cardiovascular Disease 07/21/22 Valery Veronica, PA-C [address] [place] [address] 381745 Physician Screedman/Laborer Dermatology 07/21/22 Catherine Cm MD [address] [place] [address] [place] [address] Assigned Heart and Vascular Provider 07/24/22 11/05/22 Johnny Murillo MD [address] [place] [address] Assigned Musculoskeletal Provider 08/14/22 10/08/22 Brea Quinn APRN FIRST GRADE TEACHER [address] [place] [address] [phone] Nurse Practitioner Dermatology 09/21/22 Brea Quinn APRN FIRST GRADE TEACHER [address] [place] [address] Assigned Surgical Provider 10/09/22 05/01/24 [place] [address] [place] [address] Assigned Musculoskeletal Provider 10/09/22 05/01/24 Livan Sharif MD [address] [place] [address] [place] [address] Assigned Heart and Vascular Provider 11/06/22 11/12/22 Catherine Cm MD [address] [place] [address] [place] [address] Assigned Heart and Vascular Provider 11/13/22 05/27/23 Sydnie Martinez RN Personal Advocate & Liaison (PAL) Family Medicine 03/28/23 07/31/23 Alfonso Renteria MD 57[address] [facility] 200 [place] [address] Assigned Neuroscience Provider 04/02/23 09/29/24 Cheng Todd PA-C [address] [place] [address] [phone] Assigned PCP 04/30/23 07/15/23 Radha Lomeli APRN FIRST GRADE TEACHER [address] [place] [address] Assigned Heart and Vascular Provider 05/28/23 Jelena David OD [address] [facility] [place] [address] Ophthalmology 06/15/23 Pao Joseph, VJ Personal Advocate & Liaison (PAL) Nurse 08/01/23 11/07/23 Esha Grimm PA-C [address] [place] [phone] Assigned PCP 07/16/23 Valery Veronica PA-C [address] [place] [address] Physician Screedman/Laborer Dermatology 09/19/23 Rey Tay MD [address] [place] [address] MD Gastroenterology 09/20/23 Rocky Zepeda DO [address] [place] [address] Physician Gastroenterology 09/20/23 Philip Dumont MD [address] [place] [address] Physician Ophthalmology 09/22/23 Meredith Carrera PA-C [address] [place] [address] Assigned Gastroenterology Provider 11/01/23 Neil Kent MD [address] [address] Dermatology 11/02/23 [place] [address] [place] [address] Neurological Surgery 12/26/23 Audrey Waite PA-C [address] [place] [address] 678455 Physician Screedman/Laborer Dermatology 02/28/24 Valery Veronica PA-C [address] [place] [address] Physician Screedman/Laborer Dermatology 04/10/24 Herminia Hatch MD [address]75 [place], [place] [phone] Assigned Rheumatology Provider 07/02/24 Jelena David OD [address] [facility] [place] [address] Ophthalmology 08/30/24 [place] [address] [place] [address] Assigned Neuroscience Provider 09/30/24 Maru Man PA-C [address] [place] [address] Physician Screedman/Laborer Dermatology 10/03/24 Maru Man PA-C [address] [place] [address] Physician Screedman/Laborer Dermatology 10/22/24 documented as of this encounter
--- OUTSIDE RECORDS SUMMARY | 2024-11-21 04:21 | XMS_ITS | Encounter Summary ---
Author Organization [place] Address [address] [place] [address] Care Team Providers Care Zyglo Inspector Name Role Phone Lita Oseguera Unavailable Unavailable Marija Edgar APRN FLY MAKER Primary Care Provider + Marija Edgar APRN FLY MAKER Unavailable [phone] Keisha Dotson MD Unavailable Diana Desir [facility] Unavailable Rain Galaviz PA-C Unavailable [phone] Tavia Wyatt MD Unavailable Erica Farrell APRN FLY MAKER Unavailable Rich Barrett MD Unavailable [phone] Neil Kent MD Unavailable Roney Story DPM Unavailable Diana Desir [facility] Unavailable Jelena David OD Unavailable Livan Sharif MD Unavailable Livan Sharif MD Unavailable Catherine Cm MD Unavailable + Valery Veronica PA-C Unavailable Catherine Cm MD Unavailable + Johnny Murillo MD Unavailable [phone] Brea Quinn WRAPPER CASHIER FLY MAKER Unavailable [phone] Brea Quinn WRAPPER CASHIER FLY MAKER Unavailable [phone] Jose Francisco Johnson MD Unavailable Livan Sharif MD Unavailable Catherine Cm MD Unavailable + Sydnie Martinez RN Unavailable Unavailable Alfonso Renteria MD Unavailable [phone] Esha Grimm PA-C Primary Care Provider Cheng Todd PA-C Unavailable [phone] Radha Lomeli WRAPPER CASHIER FLY MAKER Unavailable Jelena David OD Unavailable Pao Joseph RN Unavailable Unavailable Esha Grimm PA-C Unavailable Valery Veronica PA-C Unavailable Rey Tay MD Unavailable Rocky Zepeda DO Unavailable Philip Dumont MD Unavailable Meredith Carrera PA-C Unavailable Neil Kent MD Unavailable Juan Pablo Emmanuel MD Unavailable Audrey Waite PA-C Unavailable Valery Veronica PA-C Unavailable Herminia Hatch MD Unavailable Jelena David OD Unavailable [phone] Juan Pablo Emmanuel MD Unavailable Maru Man PA-C Unavailable + Maru Man PA-C Unavailable + Jelena David Radha OD Unavailable [phone] Encounter Details Date Type Department Care Team (Late st Contact Info) Description 07/02/2022 MyC Medical Advice [address] [phone] [facility] [address] [place] [address] Social History Tobacco Use Types Packs/Day Years [...] How often do you attend hinduism or amish serv ices? Never 09/22/2021 Do [...] points; Administer PHQ-9 if positive 1 05/13/2022 [facility] ional [...] in a long-term (including now)? No 09/22/2021 [place] Depression Scale Answer Date Recorded [place] Depression Score 5 01/14/2021 Last EPDS Self Harm Result Not on file 01/14 Education Answer Date Recorded What is the highest level of school you have completed or the highest degree you have received? 12th grade 08/07/2020 Comments No Sex and Gender Information Value Date Recorded Sex Assigned at Female 03/02/2021 5:45 PM CDT Legal Sex Female 4:13 AM ISOTOPE HYDROLOGIST Gender Identity Female 03/02/2021 5:45 PM CDT Sexual Orientation Straight 02/28/2020 12 :51 AM CDT COVID-19 Exposure Response Date Recorded In the last 10 days, have yo u been in contact with someone who was confirmed or suspected to have Coronavirus/COVID-19? No / Unsure 06/25/2022 8:44 AM ISOTOPE HYDROLOGIST documented as of this encounter Plan of Treatment Upcoming Encounters Date Type Department Care Team (Late st Contact Info) Description 11/21/2024 7:00 AM CDT Office Visit [address] [phone] Maru Man PA-C [address] [place] [address] 12/20/2024 2:30 PM CDT Office Visit [facility] [address] [place] [phone] Esha Grimm PA-C [id number] [place] [phone] 04/16/2025 11:00 AM CDT Virtual Visit [facility] [address] 4th [place] [phone] Meredith Carrera PA-C [address] [place] [address] documented as of this encounter Visit Diagnoses [...] documented as of this encounter Care Teams Zyglo Inspector Relationship Specialty Start Date End Date Marija Edgar APRN FLY MAKER PCP - General Nurse Practitioner 04/30/20 04/14/23 Esha Grimm PA-C [address] [place] [phone] PCP - General Family Medicine 05/04/23 Lita Oseguera Personal Advocate & Liaison (PAL) 02/28/20 03/27/23 Marija Edgar APRN FLY MAKER Assigned PCP 06/08/20 04/29/23 Keisha Dotson MD [address] [place], [place] [phone] Assigned Neuroscience Provider 06/04/20 04/01/23 Diana Desir, [facility] [address] [place], [place] [phone] Pharmacist Pharmacist 04/17/21 Rain Galaviz PA-C [address] [place] [address] [facility] [place] [address] Physician Hose Tender Dermatology 04/28/21 Tavia Wyatt MD [address] [place] [address] [facility] [place] [address] Dermatology 07/14/21 Erica Farrell APRN FLY MAKER [address] [place] [address] Nurse Practitioner Cardiovascular Disease 09/09/21 Rich Barrett MD [address] [place] [address] Physician Ophthalmology 01/21/22 Neil Kent MD 500 [place], [place] 343095 Dermatology 02/24/22 Roney Story DPM [address] [facility] [address] [place], [place] 240517 Assigned Musculoskeletal Provider 03/20/22 08/13/22 Diana Desir, [facility] [address] [facility] [place], [place] 617066 Assigned MTM Pharmacist 04/07/22 Jelena David OD [address] [facility] [address] [place] [phone] Assigned Surgical Provider 05/08/22 10/08/22 Livan Sharif MD [address] [place] [address] Cardiovascular Disease 05/14/22 Livan Sharif MD [address] [place] 265255 Assigned Heart and Vascular Provider 06/12/22 07/23/22 Catherine Cm MD [address] [place] 2[address]65 Cardiovascular Disease 07/21/22 Valery Veronica, PA-C [address]09 [place], [place] 912745 Physician Hose Tender Dermatology 07/21/22 Catherine Cm MD [address] [place] 490845 Assigned Heart and Vascular Provider 07/24/22 11/05/22 Johnny Murillo MD [address] [address] Assigned Musculoskeletal Provider 08/14/22 10/08/22 Brea Quinn APRN FLY MAKER 500 [place] [address] Nurse Practitioner Dermatology 09/21/22 Brea Quinn APRN FLY MAKER 6401 [facility] [place] [address] Assigned Surgical Provider 10/09/22 05/01/24 [place] [address] [facility] 300 [place] [address] Assigned Musculoskeletal Provider 10/09/22 05/01/24 Livan Sharif MD [address] [facility] [address] [place] [address] Assigned Heart and Vascular Provider 11/06/22 11/12/22 Catherine Cm MD [address] [facility] [address] [place] [address] Assigned Heart and Vascular Provider 11/13/22 05/27/23 Sydnie Martinez RN Personal Advocate & Liaison (PAL) Family Medicine 03/28/23 07/31/23 Alfonso Renteria MD 5775 [facility] 200 [place], [place] 450636 Assigned Neuroscience Provider 04/02/23 09/29/24 Cheng Todd PA-C [address] [place] [address] [phone] Assigned PCP 04/30/23 07/15/23 Radha Lomeli APRN CNP [address] [place] [address] Assigned Heart and Vascular Provider 05/28/23 Jelena David OD [address] [facility] [place] [address] MD Ophthalmology 06/15/23 Pao Joseph, VJ Personal Advocate & Liaison (PAL) Nurse 08/01/23 11/07/23 Esha Grimm PA-C [address] [place] [phone] Assigned PCP 07/16/23 Valery Veronica PA-C [address] [place] [address] 267195 Physician Hose Tender Dermatology 09/19/23 eRy Tay MD [address] [place] [address] [id number] MD Gastroenterology 09/20/23 Rocky Zepeda DO [address] [place] [address] [phone] Physician Gastroenterology 09/20/23 Philip Dumont MD [address] [place] [address] 570525 Physician Ophthalmology 09/22/23 Meredith Carrera PA-C [address] [place] [address] Assigned Gastroenterology Provider 11/01/23 Neil Kent MD [address] [place] [address] MD Dermatology 11/02/23 [place] [address] [place] [address] Neurological Surgery 12/26/23 Audrey Waite PA-C [address] [place] [address] Physician Hose Tender Dermatology 02/28/24 Valery Veronica PA-C [id number] [address] [place] [address] Physician Hose Tender Dermatology 04/10/24 Herminia Hatch MD [facility]5 [place], [place] [phone] Assigned Rheumatology Provider 07/02/24 Jelena David OD [address] [facility] [place] [address] Ophthalmology 08/30/24 [place] [address] [place] [address] Assigned Neuroscience Provider 09/30/24 Maru Man PA-C [address] [place] [address] Physician Hose Tender Dermatology 10/03/24 Maru Man PA-C [address] [place] [address] Physician Hose Tender Dermatology 10/22/24 Jelena David OD [address] [place] [address] [place] [address] Assigned Surgical Provider 10/31/24 documented as of this encounter
--- OUTSIDE RECORDS SUMMARY | 2024-11-21 04:21 | XMS_ITS | Encounter Summary ---
Author Organization [facility] Address [address] [place] [address] Care Team Providers Care Director Translational Name Role Phone Diana Desir [facility] Unavailable Rain Galaviz PA-C Unavailable Tavia Wyatt MD Unavailable Erica Farrell APRN EXTRACTOR OPERATOR Unavailable Rich Barrett MD Unavailable [phone] Neil Kent MD Unavailable Diana Desir [facility] Unavailable [phone] Livan Sharif MD Unavailable Catherine Cm MD Unavailable + Valery Veronica PA-C Unavailable [phone] Brea Quinn SILVER CHASER EXTRACTOR OPERATOR Unavailable Brea Quinn SILVER CHASER EXTRACTOR OPERATOR Unavailable [phone] Jose Francisco Johnson MD Unavailable Alfonso Renteria MD Unavailable [phone] Esha Grimm PA-C Primary Care Provider [phone] Radha Lomeli APRN EXTRACTOR OPERATOR Unavailable Jelena David OD Unavailable Pao Joseph RN Unavailable Unavailable AlfaJesusEsha M PA-C Unavailable [phone] Valery Veronica PA-C Unavailable [phone] Rey Tay MD Unavailable Rocky Zepeda DO Unavailable Philip Dumont MD Unavailable Meredith Carrera PA-C Unavailable Neil Kent MD Unavailable Juan Pablo Emmanuel MD Unavailable Audrey Waite PA-C Unavailable JeremíasValery damon PA-C Unavailable Herminia Hatch MD Unavailable Jelena David OD Unavailable Juan Pablo Emmanuel MD Unavailable Maru Man PA-C Unavailable Maru Man PA-C Unavailable Jelena David OD Unavailable [phone] Encounter Details Date Type Department Care Team (Late st Contact Info) Description 09/01/2023 MyC Medical Advice [address] [address] Diana Desir, [facility] [address] [place] [address] Social History Tobacco Use Types [...] 0 06/20/2023 [facility] Occupational Stress Questionnaire Answer Date [...] PM CDT Legal Sex Female 4:13 AM ORDER TAKER Gender Identity Female 03/02/2021 5:45 PM CDT Sexual Orientation Straight 02/28/2020 12 :51 AM CDT documented as of this encounter Plan of Treatment Upcoming Encounters Date Type Department Care Team (Late st Contact Info) Description 11/21/2024 7:00 AM CDT Office Visit [facility] [address] [phone] Maru Man PA-C [address] [address] 12/20/2024 2:30 PM CDT Office Visit [facility] [address] [place] [address] Esha Grimm PA-C [address] [place] [address] 04/16/2025 11:00 AM CDT Virtual Visit [facility] [address] 4th [place] [phone] Meredith Carrera PA-C [address] [place] [address] 939405 documented as of this encounter Visit Diagnoses [...] Score: 4 06/20/20 23 8:40 AM ORDER TAKER documented as of this encounter Care Teams Director Translational Relationship Specialty Start Date End Date Esha Grimm PA-C [address] [place] [address] PCP - General Family Medicine 05/04/23 Diana Desir, [facility] [address] [place] [address] Pharmacist Pharmacist 04/17/21 Rain Galaviz PA-C [address] [place] [address] [address] [address] [address] Physician Tape Duplicator Dermatology 04/28/21 Tavia Wyatt MD [address] [place] [address] [address] [address] [address] Dermatology 07/14/21 Erica Farrell APRN EXTRACTOR OPERATOR [address] [place] [address] Nurse Practitioner Cardiovascular Disease 09/09/21 Rich Barrett MD [address] [place] [address] Physician Ophthalmology 01/21/22 Neil Kent MD 500 [place], [place] 686695 Dermatology 02/24/22 Diana Desir, [facility] [address] [place], [place] 186396 Assigned MTM Pharmacist 04/07/22 Livan Sharif MD [address] [place] [address] Cardiovascular Disease 05/14/22 Catherine Cm MD [address] [place] [address] Cardiovascular Disease 07/21/22 Valery Veronica PA-C 909 [place] [address] Physician Tape Duplicator Dermatology 07/21/22 Brea Quinn APRN EXTRACTOR OPERATOR 500 [place] [address] Nurse Practitioner Dermatology 09/21/22 Brea Quinn APRN EXTRACTOR OPERATOR [address] [place] [address] Assigned Surgical Provider 10/09/22 05/01/24 [place] [address] [place] [address] Assigned Musculoskeletal Provider 10/09/22 05/01/24 Alfonso Renteria MD 5775 [facility] 200 [place], [place] [phone] Assigned Neuroscience Provider 04/02/23 09/29/24 Radha Lomeli APRN EXTRACTOR OPERATOR 6405 [facility] [address] [place] [address] Assigned Heart and Vascular Provider 05/28/23 Jelena David OD [address] [facility] [place] [address] Ophthalmology 06/15/23 Pao Joseph, VJ Personal Advocate & Liaison (PAL) Nurse 08/01/23 11/07/23 Esha Grimm PA-C [address] [place] [phone] Assigned PCP 07/16/23 Valery Veronica PA-C 9 [place] [address] Physician Tape Duplicator Dermatology 09/19/23 Rey Tay MD [address] [place] [address] [phone] MD Gastroenterology 09/20/23 Rocky Zepeda DO [address] [place] [address] 323395 Physician Gastroenterology 09/20/23 Philip Dumont MD [address] [place] [address] 214455 Physician Ophthalmology 09/22/23 Meredith Carrera PA-C [address] [place] [address] [phone] Assigned Gastroenterology Provider 11/01/23 Neil Kent MD [address] 375[address] Dermatology 11/02/23 [place] [address] [facility] [place] [address] Neurological Surgery 12/26/23 Audrey Waite PA-C [address] [place] [address] Physician Tape Duplicator Dermatology 02/28/24 Valery Veronica PA-C [address] [facility] [place] [place] [address] Physician Tape Duplicator Dermatology 04/10/24 Herminia Hatch MD [facility]5 [place] [address] Assigned Rheumatology Provider 07/02/24 Jelena David OD [address] [place] [address] [place] [address] Ophthalmology 08/30/24 [place] [address] [address] Assigned Neuroscience Provider 09/30/24 Maru Man PA-C [address] [place] [address] Physician Tape Duplicator Dermatology 10/03/24 Maru Man PA-C [address] [place] [address] Physician Tape Duplicator Dermatology 10/22/24 Jelena David OD [address] [place] [address] [place] [address] Assigned Surgical Provider 10/31/24 documented as of this encounter
--- OUTSIDE RECORDS SUMMARY | 2024-11-21 04:21 | XMS_ITS | Encounter Summary ---
Author Organization [facility] Address [address] [place] [address] Care Team Providers Care Infection Prevention Coordinator Name Role Phone Lita Oseguera Unavailable Unavailable Marija Edgar APRN POLITICAL RESEARCHER Primary Care Provider + Marija Edgar APRN POLITICAL RESEARCHER Unavailable [phone] Keisha Dotson MD Unavailable Diana Desir [facility] Unavailable Rain Galaviz PA-C Unavailable Tavia Wyatt MD Unavailable Erica Farrell APRN POLITICAL RESEARCHER Unavailable Rich Barrett MD Unavailable [phone] Neil Kent MD Unavailable Roney Story DPM Unavailable Diana Desir [facility] Unavailable Jelena David OD Unavailable Livan Sharif MD Unavailable Livan Sharif MD Unavailable Catherine Cm MD Unavailable + Valery Veronica PA-C Unavailable Catherine Cm MD Unavailable + Johnny Murillo MD Unavailable [phone] Brea Quinn FAMILY INDEPENDENCE CASE MANAGER POLITICAL RESEARCHER Unavailable [phone] Brea Quinn FAMILY INDEPENDENCE CASE MANAGER POLITICAL RESEARCHER Unavailable [phone] Jose Francisco Johnson MD Unavailable Livan Sharif MD Unavailable Catherine Cm MD Unavailable + Sydnie Martinez RN Unavailable Unavailable Alfonso Renteria MD Unavailable [phone] Esha Grimm PA-C Primary Care Provider Cheng Todd PA-C Unavailable [phone] Radha Lomeli FAMILY INDEPENDENCE CASE MANAGER POLITICAL RESEARCHER Unavailable Jelena David OD Unavailable Pao Joseph RN Unavailable Unavailable Esha Grimm PA-C Unavailable [phone] Valery Veronica PA-C Unavailable Rey Tay MD Unavailable Rocky Zepeda DO Unavailable Philip Dumont MD Unavailable Meredith Carrera PA-C Unavailable Neil Kent MD Unavailable Juan Pablo Emmanuel MD Unavailable Audrey Waite PA-C Unavailable Valery Veronica PA-C Unavailable Herminia Hatch MD Unavailable Jelena David OD Unavailable [phone] Juan Pablo Emmanuel MD Unavailable Maru Man PA-C Unavailable + Maru Man PA-C Unavailable + Frankie Jelena Garcia OD Unavailable [phone] Encounter Details Date Type Department Care Team (Late st Contact Info) Description 07/07/2022 MyC Medical Advice [facility] [address] [facility] [address] [place] [address] Livan Sharif MD [address] [facility] [address] [place], [place] [address] Social History Tobacco Use Types Packs/Day Years [...] How often do you attend synagogue or adventist serv ices? Never 09/22/2021 Do [...] in a penitentiary (including now)? No 09/22/2021 Crowder Depression Scale Answer Date Recorded Crowder Depression Score 5 01/14/2021 Last EPDS Self Harm Result Not on file 01/14 Education Answer Date Recorded What is the highest level of school you have completed or the highest degree you have received? 12th grade 08/07/2020 Comments No Sex and Gender Information Value Date Recorded Sex Assigned at Female 03/02/2021 5:45 PM CDT Legal Sex Female 4:13 AM AERIAL INSTALLER Gender Identity Female 03/02/2021 5:45 PM CDT Sexual Orientation Straight 02/28/2020 12 :51 AM CDT COVID-19 Exposure Response Date Recorded In the last 10 days, have yo u been in contact with someone who was confirmed or suspected to have Coronavirus/COVID-19? No / Unsure 06/25/2022 8:44 AM AERIAL INSTALLER documented as of this encounter Plan of Treatment Upcoming Encounters Date Type Department Care Team (Late st Contact Info) Description 11/21/2024 7:00 AM CDT Office Visit [address] [phone] Maru Man PA-C [address] [address] 12/20/2024 2:30 PM CDT Office Visit [facility] [address] [place] [address] Esha Grimm PA-C [address] [place] [address] 04/16/2025 11:00 AM CDT Virtual Visit [facility] [address] 4th [place] [phone] Meredith Carrera PA-C [address] [place] [address] documented as of this encounter Visit Diagnoses [...] documented as of this encounter Care Teams Infection Prevention Coordinator Relationship Specialty Start Date End Date Marija Edgar APRN POLITICAL RESEARCHER PCP - General Nurse Practitioner 04/30/20 04/14/23 Esha Grimm PA-C [address] [place] [phone] PCP - General Family Medicine 05/04/23 Lita Oseguera Personal Advocate & Liaison (PAL) 02/28/20 03/27/23 Marija Edgar APRN POLITICAL RESEARCHER Assigned PCP 06/08/20 04/29/23 Keisha Dotson MD 909 [place], [place] 351295 Assigned Neuroscience Provider 06/04/20 04/01/23 [facility] [address] [place], [place] [address]526 Pharmacist Pharmacist 04/17/21 Rain Galaviz PA-C [address] [place] [address] [address] [facility] [place] [address] Physician Wigs Salesperson Dermatology 04/28/21 Tavia Wyatt MD [address] [place] [address] [address] [facility] [place] [address] Dermatology 07/14/21 Erica Farrell APRN POLITICAL RESEARCHER [address] [place] [address] Nurse Practitioner Cardiovascular Disease 09/09/21 Rich Barrett MD [address] [place] [address] Physician Ophthalmology 01/21/22 Neil Kent MD 500 [place], [place] [address]65 Dermatology 02/24/22 Roney Story DPM [address] [facility] [address] [place], [place] 476547 Assigned Musculoskeletal Provider 03/20/22 08/13/22 Diana Desir, [facility] [address] [facility] [place] [place] [address] Assigned MTM Pharmacist 04/07/22 Jelena David OD [address] [place] [address] Assigned Surgical Provider 05/08/22 10/08/22 Livan Sharif MD [address] [place] [id number] Cardiovascular Disease 05/14/22 Livan Sharif MD [address] [place] 858165 Assigned Heart and Vascular Provider 06/12/22 07/23/22 Catherine Cm MD [address] [place] [address] Cardiovascular Disease 07/21/22 Valery Veronica, PA-C [address]09 [place], [place] 366685 Physician Wigs Salesperson Dermatology 07/21/22 Catherine Cm MD [address] [place] 653915 Assigned Heart and Vascular Provider 07/24/22 11/05/22 Johnny Murillo MD [address] [address] Assigned Musculoskeletal Provider 08/14/22 10/08/22 Brea Quinn APRN POLITICAL RESEARCHER 500 [place] [address] Nurse Practitioner Dermatology 09/21/22 Brea Quinn APRN POLITICAL RESEARCHER 6401 [place] [address] Assigned Surgical Provider 10/09/22 05/01/24 [place] [address] [facility] 300 [place] [address] Assigned Musculoskeletal Provider 10/09/22 05/01/24 Livan Sharif MD 6405 [facility] [address] [place] [address] Assigned Heart and Vascular Provider 11/06/22 11/12/22 Catherine Cm MD [address]405 [facility] [address] [place] [address] Assigned Heart and Vascular Provider 11/13/22 05/27/23 Sydnie Martinez RN Personal Advocate & Liaison (PAL) Family Medicine 03/28/23 07/31/23 Alfonso Renteria MD 5775 [facility] 200 [place], [place] 572846 Assigned Neuroscience Provider 04/02/23 09/29/24 Cheng Todd PA-C [address] [place] [address] [phone] Assigned PCP 04/30/23 07/15/23 Radha Lomeli APRN CNP [address] [place] [address] Assigned Heart and Vascular Provider 05/28/23 Jelena David OD [address] [place] [address] MD Ophthalmology 06/15/23 Pao Joseph, RN Personal Advocate & Liaison (PAL) Nurse 08/01/23 11/07/23 Esha Grimm PA-C [address] [place] [phone] Assigned PCP 07/16/23 Valery Veronica PA-C [address] [place] [address] 436195 Physician Wigs Salesperson Dermatology 09/19/23 Rey Tay MD [address] [place] [address] 157395 MD Gastroenterology 09/20/23 Rocky Zepeda DO [address] [place] [address] 178975 Physician Gastroenterology 09/20/23 Philip Dumont MD [address] [place] [address] 990675 Physician Ophthalmology 09/22/23 Meredith Carrera PA-C [address] [place] [address] 810555 Assigned Gastroenterology Provider 11/01/23 Neil Kent MD [address] [place] [address] Dermatology 11/02/23 [place] [address] [place] [address] Neurological Surgery 12/26/23 Audrey Waite PA-C [address] [place] [address] Physician Wigs Salesperson Dermatology 02/28/24 Valery Veronica PA-C [address] [place] [address] Physician Wigs Salesperson Dermatology 04/10/24 Herminia Hatch MD [address] [place] [address] [phone] Assigned Rheumatology Provider 07/02/24 Jelena David OD [address] [place] [address] [place] [address] Ophthalmology 08/30/24 [place] [address] [place] [address] Assigned Neuroscience Provider 09/30/24 Maru Man PA-C [address] [place] [address] Physician Wigs Salesperson Dermatology 10/03/24 Maru Man PA-C [address] [place] [address] Physician Wigs Salesperson Dermatology 10/22/24 [place] [address] [place] [address] [place] [address] Assigned Surgical Provider 10/31/24 documented as of this encounter
--- OUTSIDE RECORDS SUMMARY | 2024-11-21 04:21 | XMS_ITS | Encounter Summary ---
Author Organization [facility] Address [address] [place] [address] Care Team Providers Care Land Conservation Specialist Name Role Phone Lita Oseguera Unavailable Unavailable Marija Edgar APRN BOILER OR ENGINE OPERATOR Primary Care Provider + Marija Edgar APRN BOILER OR ENGINE OPERATOR Unavailable [phone] Keisha Dotson MD Unavailable Diana Desir [facility] Unavailable Rain Galaviz PA-C Unavailable Tavia Wyatt MD Unavailable Erica Farrell APRN BOILER OR ENGINE OPERATOR Unavailable Rich Barrett MD Unavailable [phone] Neil [place] MD Unavailable Roney Story DPM Unavailable Diana Desir [facility] Unavailable Jelena David OD Unavailable Livan Sharif MD Unavailable Livan Sharif MD Unavailable Catherine Cm MD Unavailable + Valery Veronica PA-C Unavailable Catherine Cm MD Unavailable + Johnny Murillo MD Unavailable [phone] Brea Quinn METAL TANK ERECTOR BOILER OR ENGINE OPERATOR Unavailable [phone] Brea Quinn METAL TANK ERECTOR BOILER OR ENGINE OPERATOR Unavailable [phone] Jose Francisco Johnson MD Unavailable Livan Sharif MD Unavailable Catherine Cm MD Unavailable + Sydnie Martinez RN Unavailable Unavailable Alfonso Renteria MD Unavailable [phone] Esha Grimm PA-C Primary Care Provider Cheng Todd PA-C Unavailable [phone] Radha Lomeli METAL TANK ERECTOR BOILER OR ENGINE OPERATOR Unavailable Jelena David OD Unavailable Pao Joseph RN Unavailable Unavailable Esha Grimm PA-C Unavailable [phone] Valery Veronica PA-C Unavailable Rey Tay MD Unavailable Rocky Zepeda DO Unavailable Philip Dumont MD Unavailable Meredith Carrera PA-C Unavailable [place] MD Unavailable Juan Pablo Emmanuel MD Unavailable Audrey Waite PA-C Unavailable Valery Veronica PA-C Unavailable Herminia Hatch MD Unavailable Jelena David OD Unavailable [phone] Juan Pablo Emmanuel MD Unavailable Maru Man PA-C Unavailable + Maru Man PA-C Unavailable + Frankie Jelena Garcia OD Unavailable [phone] Encounter Details Date Type Department Care Team (Late st Contact Info) Description 07/20/2022 MyC Medical Advice [facility] [address] [facility] [address] [place] [address] Livan Sharif MD [address] [facility] [address] [place], [place] [address] Social History Tobacco Use Types Packs/Day Years [...] How often do you attend judaism or sikh serv ices? Never 09/22/2021 Do [...] in a correction (including now)? No 09/22/2021 [place] Depression Scale Answer Date Recorded [place] Depression Score 5 01/14/2021 Last EPDS Self Harm Result Not on file 01/14 Education Answer Date Recorded What is the highest level of school you have completed or the highest degree you have received? 12th grade 08/07/2020 Comments No Sex and Gender Information Value Date Recorded Sex Assigned at Female 03/02/2021 5:45 PM CDT Legal Sex Female 4:13 AM MATTRESS FILLER Gender Identity Female 03/02/2021 5:45 PM CDT Sexual Orientation Straight 02/28/2020 12 :51 AM CDT COVID-19 Exposure Response Date Recorded In the last 10 days, have yo u been in contact with someone who was confirmed or suspected to have Coronavirus/COVID-19? No / Unsure 07/23/2022 6:45 AM MATTRESS FILLER documented as of this encounter Plan of Treatment Upcoming Encounters Date Type Department Care Team ([facility] st Contact Info) Description 11/21/2024 7:00 AM CDT Office Visit [address] [phone] Maru Man PA-C [address] [address] 12/20/2024 2:30 PM CDT Office Visit [facility] [address] [place] [address] Esha Grimm PA-C [id number] [place] [address] 04/16/2025 11:00 AM CDT Virtual Visit [facility] [address] 4th [place] [phone] Meredith Carrera PA-C [address] [place] [address] documented as of this encounter Visit Diagnoses [...] documented as of this encounter Care Teams Land Conservation Specialist Relationship Specialty Start Date End Date Marija Edgar APRN BOILER OR ENGINE OPERATOR PCP - General Nurse Practitioner 04/30/20 04/14/23 Esha Grimm PA-C [address] [place] [phone] PCP - General Family Medicine 05/04/23 Lita Oseguera Personal Advocate & Liaison (PAL) 02/28/20 03/27/23 Marija Edgar APRN BOILER OR ENGINE OPERATOR Assigned PCP 06/08/20 04/29/23 Keisha Dotson MD [address]09 [place], [place] 998245 Assigned Neuroscience Provider 06/04/20 04/01/23 [facility] [address] [place], [place] 8[address] Pharmacist Pharmacist 04/17/21 Rain Galaviz PA-C [address] [place] [address] [address] [facility] [place] [address] Physician Colliery Clerk Dermatology 04/28/21 Tavia Wyatt MD [address] [place] [address] [address] [facility] [place] [address] Dermatology 07/14/21 Erica Farrell APRN BOILER OR ENGINE OPERATOR [address] [place] [address] Nurse Practitioner Cardiovascular Disease 09/09/21 Rich Barrett MD [address] [place] [address] Physician Ophthalmology 01/21/22 [place] MD 500 [place], [place] 25[address]95 Dermatology 02/24/22 Roney Story DPM [address] [facility] [address] [place], [place] 837867 Assigned Musculoskeletal Provider 03/20/22 08/13/22 Diana Desir, [facility] [address] [facility] [place], [place] 66[address]36 Assigned MTM Pharmacist 04/07/22 Jelena David OD [address] [facility] [place] [address] Assigned Surgical Provider 05/08/22 10/08/22 Livan Sharif MD [address] [place] 266[address] Cardiovascular Disease 05/14/22 Livan Sharif MD [address] [place] 977465 Assigned Heart and Vascular Provider 06/12/22 07/23/22 Catherine Cm MD [address] [place] [address] Cardiovascular Disease 07/21/22 Valery Veronica, PA-C 909 [place], [place] 0[address]85 Physician Colliery Clerk Dermatology 07/21/22 Catherine Cm MD [address] [place] 84[address]35 Assigned Heart and Vascular Provider 07/24/22 11/05/22 Johnny Murillo MD [address] [address] Assigned Musculoskeletal Provider 08/14/22 10/08/22 Brea Quinn APRN BOILER OR ENGINE OPERATOR 500 [place] [address] Nurse Practitioner Dermatology 09/21/22 Brea Quinn APRN BOILER OR ENGINE OPERATOR 6401 [place] [address] Assigned Surgical Provider 10/09/22 05/01/24 [place] [address] [facility] 300 [place] [address] Assigned Musculoskeletal Provider 10/09/22 05/01/24 Livan Sharif MD 6405 [facility] [address] [place] [address] Assigned Heart and Vascular Provider 11/06/22 11/12/22 Catherine Cm MD 6405 [facility] [address] [place] [address] Assigned Heart and Vascular Provider 11/13/22 05/27/23 Sydnie Martinez RN Personal Advocate & Liaison (PAL) Family Medicine 03/28/23 07/31/23 Alfonso Renteria MD 5775 [facility] 200 [place], [place] 669226 Assigned Neuroscience Provider 04/02/23 09/29/24 Cheng Todd PA-C [address] [place] [address] [phone] Assigned PCP 04/30/23 07/15/23 Radha Lomeli APRN CNP [address] [place] [address] Assigned Heart and Vascular Provider 05/28/23 Jelena David OD [address] [facility] [place] [address] MD Ophthalmology 06/15/23 Pao Joseph, RN Personal Advocate & Liaison (PAL) Nurse 08/01/23 11/07/23 Esha Grimm PA-C [address] [place] [phone] Assigned PCP 07/16/23 Valery Veronica PA-C [address] [place] [address] 436175 Physician Colliery Clerk Dermatology 09/19/23 Rey Tay MD [address] [place] [address] 718815 MD Gastroenterology 09/20/23 Rocky Zepeda DO [address] [place] [address] 117375 Physician Gastroenterology 09/20/23 Philip Dumont MD [address] [place] [address] 147595 Physician Ophthalmology 09/22/23 Meredith Carrera PA-C [address] [place] [address] 128645 Assigned Gastroenterology Provider 11/01/23 [place] MD [address] [place] [address] Dermatology 11/02/23 [place] [address] [place] [address] Neurological Surgery 12/26/23 Audrey Waite PA-C [address] [place] [address] Physician Colliery Clerk Dermatology 02/28/24 Valery Veronica PA-C [id number] [place] [address] Physician Colliery Clerk Dermatology 04/10/24 Herminia Hatch MD [address] [place] [address] [phone] Assigned Rheumatology Provider 07/02/24 Jelena David OD [address] [place] [address] [place] [address] Ophthalmology 08/30/24 [place] [address] [place] [address] Assigned Neuroscience Provider 09/30/24 Maru Man PA-C [address] [place] [address] Physician Colliery Clerk Dermatology 10/03/24 Maru Man PA-C [address] [place] [address] Physician Colliery Clerk Dermatology 10/22/24 [place] [address] [place] [address] [place] [address] Assigned Surgical Provider 10/31/24 documented as of this encounter
--- OUTSIDE RECORDS SUMMARY | 2024-11-21 04:21 | XMS_ITS | Encounter Summary ---
Author Organization [facility] Address [address] [place] [address] Care Team Providers Care Credit Associate Name Role Phone Diana Desir [facility] Unavailable Rain Galaviz PA-C Unavailable Tavia Wyatt MD Unavailable Erica Farrell APRN BEHAVIOR CLINICIAN Unavailable Rich Barrett MD Unavailable [phone] Neil [place] MD Unavailable Diana Desir [facility] Unavailable [phone] Livan Sharif MD Unavailable Catherine Cm MD Unavailable + Valery Veronica PA-C Unavailable Brea Quinn CARD GAME OPERATOR BEHAVIOR CLINICIAN Unavailable Brea Quinn CARD GAME OPERATOR BEHAVIOR CLINICIAN Unavailable Jose Francisco Johnson MD Unavailable Alfonso Renteria MD Unavailable [phone] Esha Grimm PA-C Primary Care Provider Radha Lomeli APRN BEHAVIOR CLINICIAN Unavailable Jelena David OD Unavailable Pao Joseph RN Unavailable Unavailable Esha Grimm Adam PA-C Unavailable [phone] Valery Veronica PA-C Unavailable [phone] Rey Tay MD Unavailable Rocky Zepeda DO Unavailable Philip Dumont MD Unavailable [phone] Meredith Carrera PA-C Unavailable [phone] Neil [place] MD Unavailable Juan Pablo Emmanuel MD Unavailable [phone] Audrey aWite PA-C Unavailable [phone] JeremíasValery damon PA-C Unavailable Herminia Hatch MD Unavailable Jelena David OD Unavailable Juan Pablo Emmanuel MD Unavailable [phone] Maru Man PA-C Unavailable Maru Man PA-C Unavailable [phone] Jelena David OD Unavailable Encounter Details Date Type Department Care Team (Late st Contact Info) Description 09/08/2023 MyC Medical Advice [facility] [address] [place] [address] Marija Polanco, VJ Social History [...] do you attend chur or voodoo services? 1 to 4 times [...] PHQ-2 Score 0 06/20/2023 [facility] - [...] exercise at this level? 30 min 03/10/2023 [place] Depression Scale Answer Date Recorded [place] Depression Score 5 01/14/2021 Last EPDS Self [...] PM CDT Legal Sex Female 4:13 AM FRUIT DUMPER Gender Identity Female 03/02/2021 5:45 PM CDT Sexual Orientation Straight 02/28/2020 12 :51 AM CDT documented as of this encounter Plan of Treatment Upcoming Encounters Date Type Department Care Team (Late st Contact Info) Description 11/21/2024 7:00 AM CDT Office Visit [facility] [address] [address] Maru Man PA-C [address] [address] 12/20/2024 2:30 PM CDT Office Visit [facility] [address] [place] [phone] Esha Grimm PA-C [address] [place] [phone] 04/16/2025 11:00 AM CDT Virtual Visit [facility] [address] [place] [phone] Meredith Carrera PA-C [address] [place] [address] 58[address] documented as of this encounter Visit Diagnoses [...] Total Score: 4 06/20/20 23 8:40 AM FRUIT DUMPER documented as of this encounter Care Teams Credit Associate Relationship Specialty Start Date End Date Esha Grimm PA-C [address] [place] [phone] PCP - General Family Medicine 05/04/23 Diana Desir, [facility] 3033 [facility] [place] [address] Pharmacist Pharmacist 04/17/21 Rain Galaviz PA-C [address] [place] [address] [place] [address] Physician Coping Machine Assembler Dermatology 04/28/21 Tavia Wyatt MD [address] [place] [address] [address] [place] [address] Dermatology 07/14/21 Erica Farrell APRN BEHAVIOR CLINICIAN [address] [place] [address] Nurse Practitioner Cardiovascular Disease 09/09/21 Rich Barrett MD [address] [place] [address]05 Physician Ophthalmology 01/21/22 Neil [place] MD [address] [place] [address] 625365 Dermatology 02/24/22 [facility] [address] [place] [address] 494956 Assigned [facility] Pharmacist 04/07/22 Livan Sharif MD [address] [place] [address] Cardiovascular Disease 05/14/22 Catherine Cm MD [address] [place] 594395 Cardiovascular Disease 07/21/22 Valery Veronica, PA-C [address] [place] [address] 263955 Physician Coping Machine Assembler Dermatology 07/21/22 Brea Quinn APRN BEHAVIOR CLINICIAN 500 [place], [place] 169365 Nurse Practitioner Dermatology 09/21/22 Brea Quinn APRN BEHAVIOR CLINICIAN 6401 [place] [address] Assigned Surgical Provider 10/09/22 05/01/24 [place] [address] [address] Assigned Musculoskeletal Provider 10/09/22 05/01/24 Alfonso Renteria MD 5775 [facility] 200 [place], [place] 401[address] Assigned Neuroscience Provider 04/02/23 09/29/24 Radha Lomeli APRN BEHAVIOR CLINICIAN [address] 4264500 [place] [address] Assigned Heart and Vascular Provider 05/28/23 Jelena Davdi OD 3305 [facility] [place] [address] Ophthalmology 06/15/23 Pao Joseph, RN Personal Advocate & Liaison (PAL) Nurse 08/01/23 11/07/23 Esha Grimm PA-C [address] [place] [address]83 Assigned PCP 07/16/23 Valery Veronica PA-C [address] [place] [address] Physician Coping Machine Assembler Dermatology 09/19/23 Rey Tay MD [address] [place] [address] MD Gastroenterology 09/20/23 Rocky Zepeda DO [address] [place] [address] Physician Gastroenterology 09/20/23 Philip Dumont MD [address] [place] [address] Physician Ophthalmology 09/22/23 Meredith Carrera PA-C [address] [place] [address] Assigned Gastroenterology Provider 11/01/23 Neil [place] MD [address] [address] Dermatology 11/02/23 [place] [address] [place] [address] Neurological Surgery 12/26/23 Audrey Waite PA-C [address] [place] [address] 602565 Physician Coping Machine Assembler Dermatology 02/28/24 Valery Veronica PA-C [address]332 [address] [place] [address] Physician Coping Machine Assembler Dermatology 04/10/24 Herminia Hatch MD [facility]5 [place], [place] 78450125 Assigned Rheumatology Provider 07/02/24 Jelena David OD 3305 [facility] [place] [address] Ophthalmology 08/30/24 [place] [address] [place] [address] Assigned Neuroscience Provider 09/30/24 Maru Man PA-C [address] [place] [address] Physician Coping Machine Assembler Dermatology 10/03/24 Maru Man PA-C [address] [place] [address] Physician Coping Machine Assembler Dermatology 10/22/24 Jelena David OD 3305 [facility] [place] [address] Assigned Surgical Provider 10/31/24 documented as of this encounter
--- OUTSIDE RECORDS SUMMARY | 2024-11-21 04:21 | XMS_ITS | Encounter Summary ---
Author Organization [facility] Address [address] [place] [address] Care Team Providers Care Director Script Name Role Phone Diana Desir [facility] Unavailable Rain Galaviz PA-C Unavailable Tavia Wyatt MD Unavailable Erica Farrell APRN FLOORING PROFESSIONAL Unavailable Rich Barrett MD Unavailable [phone] Neil [place] MD Unavailable Diana Desir [facility] Unavailable Livan Sharif MD Unavailable Catherine Cm MD Unavailable + Valery Veronica PA-C Unavailable Brea Quinn OBSTETRICIAN/GYNECOLOGIST FLOORING PROFESSIONAL Unavailable [phone] Brea Quinn OBSTETRICIAN/GYNECOLOGIST FLOORING PROFESSIONAL Unavailable Jose Francisco Johnson MD Unavailable Alfonso Renteria MD Unavailable [phone] Esha Grimm PA-C Primary Care Provider Radha Lomeli APRN FLOORING PROFESSIONAL Unavailable Jelena David OD Unavailable Pao Joseph RN Unavailable Unavailable AlfaJesusEsha M PA-C Unavailable [phone] Valery Veronica PA-C Unavailable [phone] Rey Tay MD Unavailable Rocky Zepeda DO Unavailable Philip Dumont MD Unavailable [phone] Meredith Carrera PA-C Unavailable [phone] Neil [place] MD Unavailable Juan Pablo Emmanuel MD Unavailable [phone] Audrey Waite PA-C Unavailable [phone] JeremíasValery damon PA-C Unavailable Herminia Hatch MD Unavailable Jelena David OD Unavailable [phone] Juan Pablo Emmanuel MD Unavailable [phone] Maru Man PA-C Unavailable Maru Man PA-C Unavailable [phone] Jelena David OD Unavailable [phone] Encounter Details Date Type Department Care Team (Late st Contact Info) Description 09/08/2023 MyC Medical Advice [facility] [address] 4th [place] [address] Mary [place] Social History Tobacco [...] exercise at this level? 30 min 03/10/2023 [place] Depression Scale Answer Date Recorded [place] [...] PM CDT Legal Sex Female 4:13 AM GAUGER CHIEF Gender Identity Female 03/02/2021 5:45 PM CDT Sexual Orientation Straight 02/28/2020 12 :51 AM CDT documented as of this encounter Plan of Treatment Upcoming Encounters Date Type Department Care Team (Late st Contact Info) Description 11/21/2024 7:00 AM CDT Office Visit [facility] [address] [address] Maru Man PA-C [address] [address] 12/20/2024 2:30 PM CDT Office Visit [facility] [address] [place] [phone] Esha Grimm PA-C [address] [place] [address] 04/16/2025 11:00 AM CDT Virtual Visit [facility] [address] 4th [place] [phone] Meredith Carrera PA-C [address] [place] [address] 981325 documented as of this encounter Visit Diagnoses [...] Total Score: 4 06/20/20 23 8:40 AM GAUGER CHIEF documented as of this encounter Care Teams Director Script Relationship Specialty Start Date End Date Esha Grimm PA-C [address] [place] [address] PCP - General Family Medicine 05/04/23 Diana Desir, [facility] [place] [address] Pharmacist Pharmacist 04/17/21 Rain Galaviz PA-C [address] [place] [address] [address] [facility] [facility] [address] Physician Rn First Assist Dermatology 04/28/21 Tavia Wyatt MD [address] [place] [address] [address] [place] [address] Dermatology 07/14/21 Erica Farrell APRN FLOORING PROFESSIONAL [address] [place] [address] Nurse Practitioner Cardiovascular Disease 09/09/21 Rich Barrett MD [address] [place] 3[address]65 Physician Ophthalmology 01/21/22 Neil [place] MD [address] [place] [address] 502895 Dermatology 02/24/22 [facility] [address] [place] [address] 383506 Assigned [facility] Pharmacist 04/07/22 Livan Sharif MD [address] [facility] [place] [address] Cardiovascular Disease 05/14/22 Catherine Cm MD [address] [facility] [place] [place] [address] Cardiovascular Disease 07/21/22 Valery Veronica, PA-C [address] [place] [address] 824025 Physician Rn First Assist Dermatology 07/21/22 Brea Quinn APRN FLOORING PROFESSIONAL 500 [place], [place] 923425 Nurse Practitioner Dermatology 09/21/22 Brea Quinn APRN FLOORING PROFESSIONAL 6401 [place] [address] Assigned Surgical Provider 10/09/22 05/01/24 [place] [address] [address] Assigned Musculoskeletal Provider 10/09/22 05/01/24 Alfonso Renteria MD 5775 [facility] 200 [place] [address] Assigned Neuroscience Provider 04/02/23 09/29/24 Radha Lomeli APRN FLOORING PROFESSIONAL [address] 9296300 [place] [address] Assigned Heart and Vascular Provider 05/28/23 Jelena David OD [address] [facility] [place] [address] Ophthalmology 06/15/23 Pao Joseph, RN Personal Advocate & Liaison (PAL) Nurse 08/01/23 11/07/23 Esha Grimm PA-C [address] [place] [address]646283 Assigned PCP 07/16/23 Valery Veronica PA-C [address] [place] [address] Physician Rn First Assist Dermatology 09/19/23 Rey Tay MD [address] [place] [address] MD Gastroenterology 09/20/23 Rocky Zepeda DO [address] [place] [address] Physician Gastroenterology 09/20/23 Philip Dumont MD [address] [place] [address] Physician Ophthalmology 09/22/23 Meredith Carrera PA-C [address] [place] [address] Assigned Gastroenterology Provider 11/01/23 Neil [place] MD [address] [address] Dermatology 11/02/23 [place] [address] [place] [address] Neurological Surgery 12/26/23 Audrey Waite PA-C [address] [place] [address] 194085 Physician Rn First Assist Dermatology 02/28/24 Valery Veronica PA-C 502311 99[place], [place] [address] Physician Rn First Assist Dermatology 04/10/24 Herminia Hatch MD [facility]5 [place], [place] 86942125 Assigned Rheumatology Provider 07/02/24 Jelena David OD 3305 [facility] [place] [address] Ophthalmology 08/30/24 [place] [address] [place] [address] Assigned Neuroscience Provider 09/30/24 Maru Man PA-C [address] [place] [address] Physician Rn First Assist Dermatology 10/03/24 Maru Man PA-C [address] [place] [address] Physician Rn First Assist Dermatology 10/22/24 Jelena David OD [facility]5 [facility] [place] [address] Assigned Surgical Provider 10/31/24 documented as of this encounter
--- OUTSIDE RECORDS SUMMARY | 2024-11-21 04:21 | XMS_ITS | Encounter Summary ---
Author Organization [place] Address [address] [place] [address] Care Team Providers Care Brine Room Laborer Name Role Phone Lita Oseguera Unavailable Unavailable Marija Edgar APRN REEL FILM INSPECTOR Primary Care Provider + Marija Edgar APRN REEL FILM INSPECTOR Unavailable [phone] Keisha Dotson MD Unavailable Diana Desir [facility] Unavailable [phone] Rain Galaviz PA-C Unavailable Tavia Wyatt MD Unavailable Erica Farrell APRN REEL FILM INSPECTOR Unavailable Rich Barrett MD Unavailable [phone] Neil Kent MD Unavailable Roney Story DPM Unavailable Diana Desir [facility] Unavailable Jelena David OD Unavailable Livan Sharif MD Unavailable Livan Sharif MD Unavailable Catherine Cm MD Unavailable + Valery Veronica PA-C Unavailable Catherine Cm MD Unavailable + Johnny Murillo MD Unavailable [phone] Brea Quinn NAIL CUTTER REEL FILM INSPECTOR Unavailable [phone] Brea Quinn NAIL CUTTER REEL FILM INSPECTOR Unavailable [phone] Jose Francisco Johnson MD Unavailable Livan Sharif MD Unavailable Catherine Cm MD Unavailable + Sydnie Martinez RN Unavailable Unavailable Alfonso Renteria MD Unavailable [phone] Esha Grimm PA-C Primary Care Provider Cheng Todd PA-C Unavailable [phone] Radha Lomeli NAIL CUTTER REEL FILM INSPECTOR Unavailable Jelena David OD Unavailable Pao Joseph RN Unavailable Unavailable Esha Grimm PA-C Unavailable [phone] Valery Veronica PA-C Unavailable Rey Tay MD Unavailable Rocky Zepeda DO Unavailable Philip Dumont MD Unavailable Meredith Carrera PA-C Unavailable [phone] Neil Kent MD Unavailable Juan Pablo Emmanuel MD Unavailable Audrey Waite PA-C Unavailable Valery Veronica PA-C Unavailable Herminia Hatch MD Unavailable Jelena David OD Unavailable [phone] Juan Pablo Emmanuel MD Unavailable [phone] Maru Man PA-C Unavailable + Maru Man PA-C Unavailable + Frankie Jelena Radha OD Unavailable [phone] Encounter Details Date Type Department Care Team (Late st Contact Info) Description 07/20/2022 MyC Medical Advice [facility] [address] [place] [address] [address] [place] [address] Pao Donahue RN Social History Tobacco [...] How often do you attend christianity or sikhism serv ices? Never 09/22/2021 Do [...] 1 05/13/2022 [facility] - Occupational Stress Questionnaire [...] in a mcfp (including now)? No 09/22/2021 Willcox Depression Scale Answer Date Recorded Willcox Depression Score 5 01/14/2021 Last EPDS Self Harm Result Not on file 01/14 Education Answer Date Recorded What is the highest level of school you have completed or the highest degree you have received? 12th grade 08/07/2020 Comments No Sex and Gender Information Value Date Recorded Sex Assigned at Female 03/02/2021 5:45 PM CDT Legal Sex Female 4:13 AM SOUND MIXER Gender Identity Female 03/02/2021 5:45 PM CDT Sexual Orientation Straight 02/28/2020 12 :51 AM CDT COVID-19 Exposure Response Date Recorded In the last 10 days, have yo u been in contact with someone who was confirmed or suspected to have Coronavirus/COVID-19? No / Unsure 07/23/2022 6:45 AM SOUND MIXER documented as of this encounter Plan of Treatment Upcoming Encounters Date Type Department Care Team (Late st Contact Info) Description 11/21/2024 7:00 AM CDT Office Visit [facility] [address] [address] Maru Man PA-C [address] [place] [address] 12/20/2024 2:30 PM CDT Office Visit [facility] [address] [place] [address] Esha Grimm PA-C [id number] [place] [address] 04/16/2025 11:00 AM CDT Virtual Visit [facility] [address] [place] [phone] Meredith Carrera PA-C [address] [place] [address] documented as of this encounter Visit Diagnoses [...] documented as of this encounter Care Teams Brine Room Laborer Relationship Specialty Start Date End Date Marija Edgar APRN REEL FILM INSPECTOR PCP - General Nurse Practitioner 04/30/20 04/14/23 Esha Grimm PA-C [address] [place] [phone] PCP - General Family Medicine 05/04/23 Lita Oseguera Personal Advocate & Liaison (PAL) 02/28/20 03/27/23 Marija Edgar APRN REEL FILM INSPECTOR Assigned PCP 06/08/20 04/29/23 Keisha Dotson MD [address]09 [place] [address] Assigned Neuroscience Provider 06/04/20 04/01/23 Diana Desir [facility] [address] [place] [address] Pharmacist Pharmacist 04/17/21 Rain Galaviz PA-C [address] [place] [address] [address] [place] [address] Physician Caisson Worker Dermatology 04/28/21 Tavia Wyatt MD [address] [place] [address] [address] [place] [address] Dermatology 07/14/21 Erica Farrell APRN REEL FILM INSPECTOR [address] [place], [place] [address] Nurse Practitioner Cardiovascular Disease 09/09/21 Rich Barrett MD [address] [place], [place] [address] Physician Ophthalmology 01/21/22 Neil Kent MD 500 [place] [address] Dermatology 02/24/22 Roney Story DPM [address] [facility] 300 [place] [address] Assigned Musculoskeletal Provider 03/20/22 08/13/22 Diana Desir [facility] [address] [place] [address] Assigned MTM Pharmacist 04/07/22 Jelena David OD [address] [facility] [place] [address] Assigned Surgical Provider 05/08/22 10/08/22 Livan Sharif MD [address] [place] [address] Cardiovascular Disease 05/14/22 Livan Sharif MD [address] [place] [address] Assigned Heart and Vascular Provider 06/12/22 07/23/22 Catherine Cm MD [address] [place] [address] Cardiovascular Disease 07/21/22 Valery Veronica, PA-C 909 [place] [address] Physician Caisson Worker Dermatology 07/21/22 Catherine Cm MD [address] [place] [address] Assigned Heart and Vascular Provider 07/24/22 11/05/22 Johnny Murillo MD [address] [facility] [address] [place] [address] Assigned Musculoskeletal Provider 08/14/22 10/08/22 Brea Quinn APRN REEL FILM INSPECTOR 500 [place] [address] Nurse Practitioner Dermatology 09/21/22 Brea Quinn APRN REEL FILM INSPECTOR 6401 [facility] [place] [address] Assigned Surgical Provider 10/09/22 05/01/24 [place] [address] [facility] [address] [place] [address] Assigned Musculoskeletal Provider 10/09/22 05/01/24 Livan Sharif MD [address] [facility] [address] [place] [address] Assigned Heart and Vascular Provider 11/06/22 11/12/22 Catherine Cm MD [address] [facility] [address] [place] [address] Assigned Heart and Vascular Provider 11/13/22 05/27/23 Sydnie Martinez RN Personal Advocate & Liaison (PAL) Family Medicine 03/28/23 07/31/23 Alfonso Renteria MD [address] [facility] 200 [place] [address] Assigned Neuroscience Provider 04/02/23 09/29/24 Cheng Todd PA-C [address] [place] [address] Assigned PCP 04/30/23 07/15/23 Radha Lomeli APRN REEL FILM INSPECTOR [address] [place], [place] [address] Assigned Heart and Vascular Provider 05/28/23 Jelena David OD [address] [facility] [place] [address] Ophthalmology 06/15/23 Pao Joseph, VJ Personal Advocate & Liaison (PAL) Nurse 08/01/23 11/07/23 Esha Grimm PA-C [address] [place] [address] Assigned PCP 07/16/23 Valery Veronica PA-C [address] [place] [address] 648715 Physician Caisson Worker Dermatology 09/19/23 Rey Tay MD [address] [place] [address] [phone] Gastroenterology 09/20/23 Rocky Zepeda DO [address] [place] [address] 395485 Physician Gastroenterology 09/20/23 Philip Dumont MD [address] [place] [address] 407235 Physician Ophthalmology 09/22/23 Meredith Carrera PA-C [address] [place] [address] [phone] Assigned Gastroenterology Provider 11/01/23 Neil Kent MD [address] [place] [address] Dermatology 11/02/23 [place] [address] [place] [address] Neurological Surgery 12/26/23 Audrey Waite PA-C 500 [place] [address] Physician Caisson Worker Dermatology 02/28/24 Valery Veronica PA-C 742139 [place], [place] [address] Physician Caisson Worker Dermatology 04/10/24 Herminia Hatch MD [address] [place] [address] Assigned Rheumatology Provider 07/02/24 Jelena David OD [address] [place] [address] [place] [address] Ophthalmology 08/30/24 [place] [address] [place] [address] Assigned Neuroscience Provider 09/30/24 Maru Man PA-C [address] [place] [address] Physician Caisson Worker Dermatology 10/03/24 Maru Man PA-C [address] [place] [address] Physician Caisson Worker Dermatology 10/22/24 Jelena David OD 3305 [facility] [place] [address] Assigned Surgical Provider 10/31/24 documented as of this encounter
--- OUTSIDE RECORDS SUMMARY | 2024-11-21 04:21 | XMS_ITS | Encounter Summary ---
Author Organization [place] Address [address] [place] [address] Care Team Providers Care Disability Attorney Name Role Phone Diana Desir [facility] Unavailable Rain GalavizC Unavailable Tavia Wyatt MD Unavailable Erica Farrell APRN FLIGHT TEST DATA ACQUISITION TECHNICIAN Unavailable Rich Barrett MD Unavailable [phone] Neil Kent MD Unavailable DesirKendrickDiana Stanislav [facility] Unavailable [phone] Livan Sharif MD Unavailable Catherine Cm MD Unavailable + Valery Veronica-C Unavailable Brea Quinn SMOKE TESTER FLIGHT TEST DATA ACQUISITION TECHNICIAN Unavailable [phone] Alfonso Renteria MD Unavailable [phone] Esha GrimmC Primary Care Provider Radha Lomeli SMOKE TESTER FLIGHT TEST DATA ACQUISITION TECHNICIAN Unavailable [phone] Jelena David OD Unavailable [place], Esha M PA-C Unavailable [phone] Valery Veronica PA-C Unavailable [phone] Rey Tay MD Unavailable Rocyk Zepeda DO Unavailable Philip Dumont MD Unavailable [phone] Meredith Carrera PA-C Unavailable [phone] Neil Kent MD Unavailable Juan Pablo Emmanuel MD Unavailable Audrey Waite PA-C Unavailable Valery Veronica PA-C Unavailable [phone] Herminia Hatch MD Unavailable Jelena David OD Unavailable Juan Pablo Emmanuel MD Unavailable Maru Man PA-C Unavailable Maru Man-C Unavailable Jelena David OD Unavailable Encounter Details Date Type Department Care Team (Late st Contact Info) Description 09/07/2024 MyC Medical Advice [facility] [address] [address] Meredith Carrera PA-C [address] [place] [address] Social History Tobacco Use Types Packs/Day [...] PHQ-2 Score 1 02/07/2024 [facility] - Occupational Stress Questionnaire [...] exercise at this level? 20 min 05/07/2024 Windom Depression Scale Answer Date Recorded [place] Depression Score 5 01/14/2021 Last EPDS Self [...] CDT Legal Sex Female 4:13 AM LEAD FABRICATOR Gender Identity Female 03/02/2021 5:45 PM CDT Sexual Orientation Straight 02/28/2020 12 :51 AM CDT documented as of this encounter Plan of Treatment Upcoming Encounters Date Type Department Care Team (Late st Contact Info) Description 11/21/2024 7:00 AM CDT Office Visit [facility] [address] [address] Maru Man PA-C [address] [place] [address] [phone] 12/20/2024 2:30 PM CDT Office Visit [facility] [address] [place] [address] Esha Grimm PA-C [address] [place] [address] 04/16/2025 11:00 AM CDT Virtual Visit [facility] [address] 4th [place] [phone] Meredith Carrera PA-C [address] [place] [address] 288625 documented as of this encounter Visit Diagnoses Not on filedocumented in this encounter Additional Health Concerns Infection Onset Date Last Indicated Resolved Time Rule Out COVID-19 10/04/2024 10/04/2024 10/05/2024 9:42 AM CDT Rule Out COVID-19 11/20/2024 11/20/2024 Assessment Noted Time PHQ-9 Depression Total Score: 3 02/07/20 24 9:33 AM CDT documented as of this encounter Care Teams Disability Attorney Relationship Specialty Start Date End Date Esha Grimm PA-C [address] [place] [address] PCP - General Family Medicine 05/04/23 Diana Desir, [facility] [address] [place] [address] Pharmacist Pharmacist 04/17/21 Rain Galaviz PA-C [address] [place] [address] [place] [address] Physician Rn L And D Dermatology 04/28/21 Tavia Wyatt MD [address] [place] [address] [address] [facility] [place] [address] Dermatology 07/14/21 Erica Farrell APRN FLIGHT TEST DATA ACQUISITION TECHNICIAN [address] [place] [address] Nurse Practitioner Cardiovascular Disease 09/09/21 Rich Barrett MD [address] [place] [address]75 Physician Ophthalmology 01/21/22 Neil Kent MD 500 [place], [place] 870415 Dermatology 02/24/22 [facility] [address] [place] [address] 405396 Assigned [place] Pharmacist 04/07/22 Livan Sharif MD [address] [place] 7886[address] Cardiovascular Disease 05/14/22 Catherine Cm MD [address] [place] [address] Cardiovascular Disease 07/21/22 Valery Veronica, PA-C [address] [place] [address] 309535 Physician Rn L And D Dermatology 07/21/22 Brea Quinn APRN FLIGHT TEST DATA ACQUISITION TECHNICIAN [address] [place] [address] Nurse Practitioner Dermatology 09/21/22 Alfonso Renteria MD [address] [facility] [address] [place] [address] Assigned Neuroscience Provider 04/02/23 09/29/24 Radha Lomeli, ARLENE FLIGHT TEST DATA ACQUISITION TECHNICIAN 6405 [facility] [address] [place], [place] 899445 Assigned Heart and Vascular Provider 05/28/23 Jelena David OD [address] [facility] [address] Ophthalmology 06/15/23 Esha Grimm PA-C [address] [place] [phone] Assigned PCP 07/16/23 Valery Veronica PA-C [address] [place] [address] Physician Rn L And D Dermatology 09/19/23 Rey Tay MD [address] [place] [address] Gastroenterology 09/20/23 Rocky Zepeda DO [address] [place] [address] 708305 Physician Gastroenterology 09/20/23 Philip Dumont MD 6 [place], [place] 436525 Physician Ophthalmology 09/22/23 Meredith Carrera PA-C [address]09 [place] [address] Assigned Gastroenterology Provider 11/01/23 Neil Kent MD [address] [address] MD Dermatology 11/02/23 [place] [address] [place] 706037 Neurological Surgery 12/26/23 Audrey Waite PA-C 500 [place] [address] Physician Rn L And D Dermatology 02/28/24 Valery Veronica PA-C 7[address]2 [address], [place] [address] Physician Rn L And D Dermatology 04/10/24 Herminia Hatch MD [facility]5 [place], [place] 88100125 Assigned Rheumatology Provider 07/02/24 [place] David OD [address] [place] [address] Ophthalmology 08/30/24 [place] [address] [place] [address] [address] Assigned Neuroscience Provider 09/30/24 Maru Man PA-C [address] [place] [address] Physician Rn L And D Dermatology 10/03/24 Maru Man PA-C [address] [place] [address] Physician Rn L And D Dermatology 10/22/24 Jelena David OD [address] [place] [address] [address] [place], [place] [address] Assigned Surgical Provider 10/31/24 documented as of this encounter
--- OUTSIDE RECORDS SUMMARY | 2024-11-21 04:21 | XMS_ITS | Encounter Summary ---
Author Organization [place] Address [address] [place] [address] Care Team Providers Care Casino Supervisor Name Role Phone Lita Oseguera Unavailable Unavailable Marija Edgar APRN LENS SILVERER Primary Care Provider + Marija Edgar APRN LENS SILVERER Unavailable Keisha Dotson MD Unavailable [facility] Unavailable [phone] Rain Galaviz PA-C Unavailable Tavia Wyatt MD Unavailable Erica Farrell APRN LENS SILVERER Unavailable Rich Barrett MD Unavailable [phone] Neil Kent MD Unavailable Roney Story DPM Unavailable [facility] Unavailable Jelena David OD Unavailable Galo Burrell MD Unavailable Unavailable Livan Sharif MD Unavailable Livan Sharif MD Unavailable Catherine Cm MD Unavailable + Valery Veronica PA-C Unavailable Catherine Cm MD Unavailable + Johnny Murillo MD Unavailable [phone] Brea Quinn SPRING INTERN LENS SILVERER Unavailable [phone] Brea Quinn SPRING INTERN LENS SILVERER Unavailable [phone] Jose Francisco Johnson MD Unavailable Livan Sharif MD Unavailable Catherine Cm MD Unavailable + Sydnie Martinez RN Unavailable Unavailable Alfonso Renteria MD Unavailable Esha Grimm PA-C Primary Care Provider Cheng Todd PA-C Unavailable Radha Lomeli SPRING INTERN LENS SILVERER Unavailable Jelena David Radha OD Unavailable Pao Joseph RN Unavailable Unavailable Esha Grimm PA-C Unavailable [phone] JeremíasValery damon PA-C Unavailable Rey Tay MD Unavailable Rocky Zepeda DO Unavailable Philip Dumont MD Unavailable [phone] Meredith Carrera PA-C Unavailable [phone] Neil Kent MD Unavailable Juan Pablo Emmanuel MD Unavailable Audrey Waite PA-C Unavailable Valery Veronica PA-C Unavailable Herminia Hatch MD Unavailable Jelena David OD Unavailable Juan Pablo Emmanuel MD Unavailable Maru Man PA-C Unavailable [phone] Maru Man PA-C Unavailable + Jelena David OD Unavailable [phone] Encounter Details Date Type Department Care Team (Late st Contact Info) Description 05/11/2022 MyC Medical Advice [address] [address] Diana Desir, [facility] [address] [place], [place] [id number] Social History Tobacco Use Types Packs/Day Years [...] How often do you attend restoration or zoroastrianism serv ices? Never 09/22/2021 Do [...] points; Administer PHQ-9 if positive 1 05/13/2022 [facility] [...] a senior care (including now)? No 09/22/2021 [place] Depression Scale Answer Date Recorded [place] Depression Score 5 01/14/2021 Last EPDS Self Harm Result Not on file 01/14 Education Answer Date Recorded What is the highest level of school you have completed or the highest degree you have received? 12th grade 08/07/2020 Comments No Sex and Gender Information Value Date Recorded Sex Assigned at Female 03/02/2021 5:45 PM CDT Legal Sex Female 4:13 AM TOPOGRAPHICAL SURVEYOR Gender Identity Female 03/02/2021 5:45 PM CDT [...] Description 11/21/2024 7:00 AM CDT Office Visit [address] [address] Maru Man PA-C [address] [place] [address] 12/20/2024 2:30 PM CDT Office Visit [facility] [address] [place] [address] Esha Grimm PA-C [address] [place] [address] 04/16/2025 11:00 AM CDT Virtual Visit [facility] [place] [address] [place] [address] [address] 4th [place] [address] Meredith Carrera PA-C [address] [place] [address] documented as of this encounter Visit Diagnoses Not on filedocumented in this encounter Additional Health Concerns Infection Onset Date Last Indicated Resolved Time Rule Out COVID-19 05/17/2022 05/17/2022 05/17/2022 10:20 PM TOPOGRAPHICAL SURVEYOR Rule Out COVID-19 06/09/2022 06/09/2022 06/09/2022 9:35 AM TOPOGRAPHICAL SURVEYOR COVID-19 06/09/2022 06/09/2022 06/30/2022 11:4 1 PM TOPOGRAPHICAL SURVEYOR Rule Out COVID-19 11/10/2022 11/10/2022 11/11/2022 12:17 [...] documented as of this encounter Care Teams Casino Supervisor Relationship Specialty Start Date End Date Marija Edgar APRN CNP PCP - General Nurse Practitioner 04/30/20 04/14/23 Esha Grimm PA-C [address] [place] [phone] PCP - General Family Medicine 05/04/23 Lita Oseguera Personal Advocate & Liaison (PAL) 02/28/20 03/27/23 Marija Edgar APRN LENS SILVERER Assigned PCP 06/08/20 04/29/23 Keisha Dotson MD [address]09 [place] [address] Assigned Neuroscience Provider 06/04/20 04/01/23 Diana Desir, [facility] [address] [place] [address] Pharmacist Pharmacist 04/17/21 Rain Galaviz PA-C [address] [place] [address] [address] [place] [address] Physician Data Systems Analyst Dermatology 04/28/21 Tavia Wyatt MD [address] [place] [address] [address] [place] [id number] Dermatology 07/14/21 Erica Farrell APRN LENS SILVERER [address] [place] 117955 Nurse Practitioner Cardiovascular Disease 09/09/21 Rich Barrett MD [address] [place] [address] Physician Ophthalmology 01/21/22 Neil Kent MD 500 [place] [address] Dermatology 02/24/22 Roney Story DPM [address] [facility] [address] [place] [address] Assigned Musculoskeletal Provider 03/20/22 08/13/22 [facility] [address] [place], [place] 986716 Assigned MTM Pharmacist 04/07/22 Jelena David OD [address] [facility] [place] [address] Assigned Surgical Provider 05/08/22 10/08/22 Galo Burrell MD Assigned Heart and Vascular Provider 04/17/22 06/11/22 Livan Sharif MD [address] [place] [address] Cardiovascular Disease 05/14/22 Livan Sharif MD [address] [place] 097225 Assigned Heart and Vascular Provider 06/12/22 07/23/22 Catherine Cm MD [address] [place] 051525 Cardiovascular Disease 07/21/22 Valery Veronica, PA-C [address] [place] [address] 657465 Physician Data Systems Analyst Dermatology 07/21/22 Catherine Cm MD [address] [address] [place] [address] Assigned Heart and Vascular Provider 07/24/22 11/05/22 Johnny Murillo MD [address] [place] [address] Assigned Musculoskeletal Provider 08/14/22 10/08/22 Brea Quinn APRN LENS SILVERER [address] [place] [address] 843345 Nurse Practitioner Dermatology 09/21/22 Brea Quinn APRN LENS SILVERER [address] [place] [address] Assigned Surgical Provider 10/09/22 05/01/24 [place] [address] [address] Assigned Musculoskeletal Provider 10/09/22 05/01/24 Livan Sharif MD [address] [address] [place] [address] Assigned Heart and Vascular Provider 11/06/22 11/12/22 Catherine Cm MD [address] [id number] [place] 950585 Assigned Heart and Vascular Provider 11/13/22 05/27/23 Sydnie Martinez, RN Personal Advocate & Liaison (PAL) Family Medicine 03/28/23 07/31/23 Alfonso Renteria MD 5775 [facility] 200 [place] [address] Assigned Neuroscience Provider 04/02/23 09/29/24 Cheng Todd PA-C [address] [place] [address] Assigned PCP 04/30/23 07/15/23 Radha Lomeli APRN LENS SILVERER [address] [facility] [address] [place] [address] Assigned Heart and Vascular Provider 05/28/23 Jelena David OD [address] [facility] [place] [address] Ophthalmology 06/15/23 Pao Joseph RN Personal Advocate & Liaison (PAL) Nurse 08/01/23 11/07/23 Esha Grimm PA-C [address] [place] [address] Assigned PCP 07/16/23 Valery Veronica PA-C [address] [place] [address] 797995 Physician Data Systems Analyst Dermatology 09/19/23 Rey Tay MD [address] [place] [address] 506205 Gastroenterology 09/20/23 Rocky Zepeda DO [address] [place] [address] Physician Gastroenterology 09/20/23 Philip Dumont MD 6 [place] [address] Physician Ophthalmology 09/22/23 Meredith Carrera PA-C [address] [place] [address] Assigned Gastroenterology Provider 11/01/23 Neil Kent MD [address] [place] [address] MD Dermatology 11/02/23 [place] [address] [facility] [place] [address] Neurological Surgery 12/26/23 Audrey Waite PA-C [address] [place] [address] Physician Data Systems Analyst Dermatology 02/28/24 Valery Veronica PA-C [id number] [address] [place] [address] Physician Data Systems Analyst Dermatology 04/10/24 Herminia Hatch MD [address] [place] [address] [id number] Assigned Rheumatology Provider 07/02/24 Jelena David OD [address] [place] [address] [place] [address] Ophthalmology 08/30/24 [place] [address] [place] [address] Assigned Neuroscience Provider 09/30/24 Maru Man PA-C [address] [place] [address] Physician Data Systems Analyst Dermatology 10/03/24 Maru Man PA-C [address] [place] [address] Physician Data Systems Analyst Dermatology 10/22/24 Jelena David OD [address] [facility] [place] [address] Assigned Surgical Provider 10/31/24 documented as of this encounter
--- OUTSIDE RECORDS SUMMARY | 2024-11-21 04:21 | XMS_ITS | Encounter Summary ---
Author Organization [place] Address [address] [place] [address] Care Team Providers Care Aircraft Ordnance Technician Name Role Phone Diana Desir [facility] Unavailable Rain Galaviz PA-C Unavailable Tavia Wyatt MD Unavailable Erica Farrell APRN COUNTY SURVEYOR Unavailable Rich Barrett MD Unavailable [phone] Neil Kent MD Unavailable Diana Desir [facility] Unavailable Livan Sharif MD Unavailable Catherine Cm MD Unavailable + Valery Veronica PA-C Unavailable Brea Quinn FARMWORKER EGG PRODUCING FARM COUNTY SURVEYOR Unavailable Brea Quinn FARMWORKER EGG PRODUCING FARM COUNTY SURVEYOR Unavailable Jose Francisco Johnson MD Unavailable Alfonso Renteria MD Unavailable [phone] Esha Grimm PA-C Primary Care Provider [phone] Radha Lomeli APRN COUNTY SURVEYOR Unavailable Jelena David OD Unavailable Pao Joseph RN Unavailable Unavailable Esha Grimm Adam PA-C Unavailable [phone] Valery Veronica PA-C Unavailable [phone] Rey Tay MD Unavailable Rocky Zepeda DO Unavailable Philip Dumont MD Unavailable [phone] Meredith Carrera PA-C Unavailable [phone] Neil Kent MD Unavailable Juan Pablo Emmanuel MD Unavailable [phone] Audrey Waite PA-C Unavailable [phone] JeremíasValery damon PA-C Unavailable Herminia Hatch MD Unavailable Jelena David OD Unavailable Juan Pablo Emmanuel MD Unavailable [phone] Maru Man PA-C Unavailable Maru Man PA-C Unavailable [phone] Jelena David OD Unavailable Encounter Details Date Type Department Care Team (Late st Contact Info) Description 08/25/2023 MyC Medical Advice [facility] [address] [place] [address] Marija Polanco, VJ Social History [...] Score 0 06/20/2023 [facility]at [facility] [...] at this level? 30 min 03/10/2023 [place] Depression Scale Answer Date Recorded [place] Depression Score 5 01/14/2021 Last EPDS [...] PM CDT Legal Sex Female 4:13 AM CITY COUNCIL MEMBER Gender Identity Female 03/02/2021 5:45 PM CDT Sexual Orientation Straight 02/28/2020 12 :51 AM CDT documented as of this encounter Plan of Treatment Upcoming Encounters Date Type Department Care Team (Late st Contact Info) Description 11/21/2024 7:00 AM CDT Office Visit [facility] [address] [address] Maru Man PA-C [address] [address] 12/20/2024 2:30 PM CDT Office [facility] [address] [place] [phone] Esha Grimm PA-C [address] [place] [phone] 04/16/2025 11:00 AM CDT Virtual Visit [facility] [address] [place] [phone] Meredith Carrera PA-C [address] [place] [address] 211595 documented as of this encounter Visit Diagnoses [...] Total Score: 4 06/20/20 23 8:40 AM CITY COUNCIL MEMBER documented as of this encounter Care Teams Aircraft Ordnance Technician Relationship Specialty Start Date End Date Esha Grimm PA-C [address] [place] [phone] PCP - General Family Medicine 05/04/23 Diana Desir, [facility] 30[address] [facility] [place] [address] Pharmacist Pharmacist 04/17/21 Rain Galaviz PA-C [address] [place] [address] [place] [address] Physician Septic Cleaner Dermatology 04/28/21 Tavia Wyatt MD [address] [place] [address] [address] [place] [address] Dermatology 07/14/21 Erica Farrell APRN COUNTY SURVEYOR [address] [place] [address] Nurse Practitioner Cardiovascular Disease 09/09/21 Rich Barrett MD [address] [place] 346875 Physician Ophthalmology 01/21/22 Neil Kent MD [address] [place] [address] 268075 Dermatology 02/24/22 [facility] [address] [place] [address] 306616 Assigned [facility] Pharmacist 04/07/22 Livan Sharif MD [address] [address] Cardiovascular Disease 05/14/22 Catherine Cm MD [address] [place] 150345 Cardiovascular Disease 07/21/22 Valery Veronica, PA-C [address] [place] [address] 733875 Physician Septic Cleaner Dermatology 07/21/22 Brea Quinn APRN COUNTY SURVEYOR 500 [place], [place] 065875 Nurse Practitioner Dermatology 09/21/22 Brea Quinn APRN COUNTY SURVEYOR 6401 [place] [address] Assigned Surgical Provider 10/09/22 05/01/24 [place] [address] [address] Assigned Musculoskeletal Provider 10/09/22 05/01/24 Alfonso Renteria MD 5775 [facility] 200 [place], [place] 584556 Assigned Neuroscience Provider 04/02/23 09/29/24 Radha Lomeli APRN COUNTY SURVEYOR [address] 3617000 [place] [address] Assigned Heart and Vascular Provider 05/28/23 Jelena David OD [address] [facility] [place] [address] Ophthalmology 06/15/23 Pao Joseph, RN Personal Advocate & Liaison (PAL) Nurse 08/01/23 11/07/23 Esha Grimm PA-C [address] [place] [address]-748283 Assigned PCP 07/16/23 Valery Veronica PA-C [address] [place] [address] Physician Septic Cleaner Dermatology 09/19/23 Rey Tay MD [address] [place] [address] MD Gastroenterology 09/20/23 Rocky Zepeda DO [address] [place] [address] Physician Gastroenterology 09/20/23 Philip Dumont MD [address] [place] [address] Physician Ophthalmology 09/22/23 Meredith Carrera PA-C [address] [place] [address] Assigned Gastroenterology Provider 11/01/23 Neil Kent MD [address] [address] Dermatology 11/02/23 [place] [address] [place] [address] Neurological Surgery 12/26/23 Audrey Waite PA-C [address] [place] [address] 577345 Physician Septic Cleaner Dermatology 02/28/24 Valery Veronica PA-C [address]655 [address] [place] [address] Physician Septic Cleaner Dermatology 04/10/24 Herminia Hatch MD [facility] [place], [place] 28854125 Assigned Rheumatology Provider 07/02/24 Jelena David OD [address] [facility] [place] [address] Ophthalmology 08/30/24 [place] [address] [place] [address] Assigned Neuroscience Provider 09/30/24 Maru Man PA-C [address] [place] [address] Physician Septic Cleaner Dermatology 10/03/24 Maru Man PA-C [address] [place] [address] Physician Septic Cleaner Dermatology 10/22/24 Jelena David OD [address] [facility] [place] [address] Assigned Surgical Provider 10/31/24 documented as of this encounter
--- OUTSIDE RECORDS SUMMARY | 2024-11-21 04:21 | XMS_ITS | Encounter Summary ---
Author Organization [place] Address [address] [place] [address] Care Team Providers Care Large Animal Veterinarian Name Role Phone Diana Desir [facility] Unavailable Rain Galaviz PA-C Unavailable Tavia Wyatt MD Unavailable Erica Farrell APRN SLEEPING CAR PORTER Unavailable Rich Barrett MD Unavailable [phone] Neil Kent MD Unavailable Diana Desir [facility] Unavailable Livan Sharif MD Unavailable Catherine Cm MD Unavailable + Valery Veronica PA-C Unavailable Brea Quinn SENIOR CORPORATE RECRUITER SLEEPING CAR PORTER Unavailable Brea Quinn SENIOR CORPORATE RECRUITER SLEEPING CAR PORTER Unavailable Jose Francisco Johnson MD Unavailable Alfonso Renteria MD Unavailable [phone] Esha Grimm PA-C Primary Care Provider Radha Lomeli APRN SLEEPING CAR PORTER Unavailable Jelena David OD Unavailable [phone] Pao Joseph RN Unavailable Unavailable AlfaJesusEsha M PA-C Unavailable [phone] Valery Veronica PA-C Unavailable Rey Tay MD Unavailable Rocky Zepeda DO Unavailable Philip Dumont MD Unavailable Meredith Carrera PA-C Unavailable Neil Kent MD Unavailable Juan Pablo Emmanuel MD Unavailable Audrey Waite PA-C Unavailable JeremíasValery damon PA-C Unavailable [phone] Herminia Hatch MD Unavailable Jelena David OD Unavailable Juan Pablo Emmanuel MD Unavailable Maru Man PA-C Unavailable Maru Man PA-C Unavailable Jelena David OD Unavailable Encounter Details Date Type Department Care Team (Late st Contact Info) Description 08/25/2023 MyC Medical Advice [address] [address] Diana Desir, [facility] 16[address] [place] [address] Social History Tobacco Use Types [...] PHQ-2 Score 0 06/20/2023 [facility]ational Stress Questionnaire [...] exercise at this level? 30 min 03/10/2023 [place] Depression Scale Answer Date Recorded [place] Depression Score 5 01/14/2021 Last EPDS Self [...] PM CDT Legal Sex Female 4:13 AM HOOKER OFF Gender Identity Female 03/02/2021 5:45 PM CDT Sexual Orientation Straight 02/28/2020 12 :51 AM CDT documented as of this encounter Plan of Treatment Upcoming Encounters Date Type Department Care Team (Late st Contact Info) Description 11/21/2024 7:00 AM CDT Office Visit [facility] [address] [phone] Maru Man PA-C [address] [address] 12/20/2024 2:30 PM CDT Office Visit [facility] [address] [place] [address] Esha Grimm PA-C [address] [place] [address] 04/16/2025 11:00 AM CDT Virtual Visit [facility]ology Clinic [address] 4th [place] [phone] Meredith Carrera PA-C [address] [place] [address] 426715 documented as of this encounter Visit Diagnoses [...] Total Score: 4 06/20/20 23 8:40 AM HOOKER OFF documented as of this encounter Care Teams Large Animal Veterinarian Relationship Specialty Start Date End Date Esha Grimm PA-C [address] [place] [address] PCP - General Family Medicine 05/04/23 Diana Desir, [facility] [address] [place] [address] Pharmacist Pharmacist 04/17/21 Rain Galaviz PA-C [address] [place] [address] [address] [place] [address] Physician Insurance Underwriter Sales Dermatology 04/28/21 Tavia Wyatt MD [address] [place] [address] [address] [place] [address] Dermatology 07/14/21 Erica Farrell APRN SLEEPING CAR PORTER [address] [place] 191185 Nurse Practitioner Cardiovascular Disease 09/09/21 Rich Barrett MD [address] [place] 428915 Physician Ophthalmology 01/21/22 Neil Kent MD 500 [place], [place] 460965 Dermatology 02/24/22 Diana Desir, [facility] 30[address] [place], [place] 004266 Assigned MTM Pharmacist 04/07/22 Livan Sharif MD [address] [place] [address] Cardiovascular Disease 05/14/22 Catherine Cm MD [address] [place] [address] Cardiovascular Disease 07/21/22 Valery Veronica PA-C 909 [place] [address] Physician Insurance Underwriter Sales Dermatology 07/21/22 Brea Quinn APRN SLEEPING CAR PORTER 500 [place] [address] Nurse Practitioner Dermatology 09/21/22 Brea Quinn APRN SLEEPING CAR PORTER 6401 [place] [address] Assigned Surgical Provider 10/09/22 05/01/24 [place] [address] [place] [address] Assigned Musculoskeletal Provider 10/09/22 05/01/24 Alfonso Renteria MD 5775 [facility] 200 [place], [place] 67[address]44[address] Assigned Neuroscience Provider 04/02/23 09/29/24 Radha Lomeli APRN SLEEPING CAR PORTER 6405 [facility] [address] [place] [address] Assigned Heart and Vascular Provider 05/28/23 Jelena David OD [address] [place] [address] Ophthalmology 06/15/23 Pao Joseph, VJ Personal Advocate & Liaison (PAL) Nurse 08/01/23 11/07/23 Esha Grimm PA-C [address] [place] [phone] Assigned PCP 07/16/23 Valery Veronica PA-C 9 [place] [address] Physician Insurance Underwriter Sales Dermatology 09/19/23 Rey Tay MD [address] [place] [address] 427455 MD Gastroenterology 09/20/23 Rocky Zepeda DO [address] [place] [address] 666145 Physician Gastroenterology 09/20/23 Philip Dumont MD [address] [place] [address] 056695 Physician Ophthalmology 09/22/23 Meredith Carrera PA-C [address] [place] [address] 120145 Assigned Gastroenterology Provider 11/01/23 Neil Kent MD [address] 170680 Dermatology 11/02/23 [place] [address] [address] [facility] [place] [address] Neurological Surgery 12/26/23 Audrey Waite PA-C [address] [place] [address] Physician Insurance Underwriter Sales Dermatology 02/28/24 Valery Veronica PA-C [address] [facility] [place] [address] Physician Insurance Underwriter Sales Dermatology 04/10/24 Herminia Hatch MD [facility]5 [place] [address] Assigned Rheumatology Provider 07/02/24 Jelena David OD [address] [place] [address] [place] [address] Ophthalmology 08/30/24 [place] [address] [place] [address] Assigned Neuroscience Provider 09/30/24 Maru Man PA-C [address] [place] [address] Physician Insurance Underwriter Sales Dermatology 10/03/24 Maru Man PA-C [address] [place] [address] Physician Insurance Underwriter Sales Dermatology 10/22/24 Jelena David OD [address] [place] [address] [place] [address] Assigned Surgical Provider 10/31/24 documented as of this encounter
--- OUTSIDE RECORDS SUMMARY | 2024-11-21 04:21 | XMS_ITS | Encounter Summary ---
Author Organization [place] Address [address] [place] [address] Care Team Providers Care Director Biomedical Engineering Name Role Phone Diana Desir [facility] Unavailable [phone] Rain Galaviz PA-C Unavailable Tavia Wyatt MD Unavailable Erica Farrell APRN KNIFE SETTER GRINDER MACHINE Unavailable Rich Barrett MD Unavailable [phone] Neil Kent MD Unavailable Diana Desir [facility] Unavailable Livan Sharif MD Unavailable Catherine Cm MD Unavailable + Valery Veronica PA-C Unavailable Brea Quinn INVESTMENT UNDERWRITER KNIFE SETTER GRINDER MACHINE Unavailable Brea Quinn INVESTMENT UNDERWRITER KNIFE SETTER GRINDER MACHINE Unavailable Jose Francisco Johnson MD Unavailable Alfonso Renteria MD Unavailable [phone] Esha Grimm PA-C Primary Care Provider [phone] Radha Lomeli APRN KNIFE SETTER GRINDER MACHINE Unavailable Jelena David OD Unavailable Pao Joseph RN Unavailable Unavailable Esha Grimm Adam PA-C Unavailable [phone] Valery Veronica PA-C Unavailable [phone] Rey Tay MD Unavailable Rocky Zepeda DO Unavailable Philip Dumont MD Unavailable [phone] Meredith Carrera PA-C Unavailable [phone] Neil Kent MD Unavailable Juan Pablo Emmanuel MD Unavailable [phone] Audrey Waite PA-C Unavailable [phone] JeremíasValery damon PA-C Unavailable Herminia Hatch MD Unavailable Jelena David OD Unavailable [phone] Juan Pablo Emmanuel MD Unavailable Maru Man PA-C Unavailable Maru Man PA-C Unavailable Jelena David OD Unavailable Encounter Details Date Type Department Care Team (Late st Contact Info) Description 09/20/2023 MyC Medical Advice [facility] G[facility]ology [facility] [address] [place] [address] Jeffery Vieira, RN Social History [...] 06/20/2023 [facility] of Occupat ional [...] exercise at this level? 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 Gender Identity Female 03/02/2021 5:45 PM CDT Sexual Orientation Straight 02/28/2020 12 :51 AM CDT documented as of this encounter Plan of Treatment Upcoming Encounters Date Type Department Care Team (Late st Contact Info) Description 11/21/2024 7:00 AM CDT Office Visit [facility] [address] [address] Maru Man PA-C [address] [place] [address] 12/20/2024 2:30 PM CDT Office Visit [facility] [address] [place] [phone] Esha Grimm PA-C [address] [place] [phone] 04/16/2025 11:00 AM CDT Virtual Visit [facility] Gastro[facility]ology [facility] [address] 4th [place] [phone] Meredith Carrera PA-C [address] [place] [address] 563165 documented as of this encounter Visit Diagnoses [...] Total Score: 4 06/20/20 23 8:40 AM MANUFACTURING ASSEMBLER documented as of this encounter Care Teams Director Biomedical Engineering Relationship Specialty Start Date End Date Esha Grimm PA-C [address] [place] [phone] PCP - General Family Medicine 05/04/23 Diana Desir, [facility] [address] [facility] [place] [place] [address] Pharmacist Pharmacist 04/17/21 Rain Galaviz PA-C [address] [place] [address] [place] [address] Physician Eyeglass Frames Inspector Dermatology 04/28/21 Tavia Wyatt MD [address] [place] [address] [address] [place] [address] Dermatology 07/14/21 Erica Farrell APRN KNIFE SETTER GRINDER MACHINE [address] [place] [address] Nurse Practitioner Cardiovascular Disease 09/09/21 Rich Barrett MD [address] [place] [address]375 Physician Ophthalmology 01/21/22 Neil Kent MD [address] [place] [address] 364065 Dermatology 02/24/22 [facility] [address] [place] [address] Assigned [facility] Pharmacist 04/07/22 Livan Sharif MD [address] [place] [address] [address] Cardiovascular Disease 05/14/22 Catherine Cm MD [address] [place] 468535 Cardiovascular Disease 07/21/22 Valery Veronica, PA-C [address] [place] [address] 211925 Physician Eyeglass Frames Inspector Dermatology 07/21/22 Brea Quinn APRN KNIFE SETTER GRINDER MACHINE 500 [place], [place] 473855 Nurse Practitioner Dermatology 09/21/22 Brea Quinn APRN KNIFE SETTER GRINDER MACHINE 6401 [place] [address] Assigned Surgical Provider 10/09/22 05/01/24 [place] [address] [address] Assigned Musculoskeletal Provider 10/09/22 05/01/24 Alfonso Renteria MD 5775 [facility] 200 [place], [place] 399776 Assigned Neuroscience Provider 04/02/23 09/29/24 Radha Lomeli APRN KNIFE SETTER GRINDER MACHINE [address] [facility] [address] [place] [address] Assigned Heart and Vascular Provider 05/28/23 Jelena David OD [address] [place] [address] Ophthalmology 06/15/23 Pao Joseph, RN Personal Advocate & Liaison (PAL) Nurse 08/01/23 11/07/23 Esha Grimm PA-C [address] [place] [phone] Assigned PCP 07/16/23 Valery Veronica PA-C [address] [place] [address] Physician Eyeglass Frames Inspector Dermatology 09/19/23 Rey Tay MD [address] [place] [address] MD Gastroenterology 09/20/23 Rocky Zepeda DO [address] [place] [address] Physician Gastroenterology 09/20/23 Philip Dumont MD [address] [place] [address] Physician Ophthalmology 09/22/23 Meredith Carrera PA-C [address] [place] [address] Assigned Gastroenterology Provider 11/01/23 Neil Kent MD [address] [address] Dermatology 11/02/23 [place] [address] [address] Neurological Surgery 12/26/23 Audrey Waite PA-C [address] [place] [address] 096115 Physician Eyeglass Frames Inspector Dermatology 02/28/24 Valery Veronica PA-C [address] [place] [address] Physician Eyeglass Frames Inspector Dermatology 04/10/24 Herminia Hatch MD [facility]5 [place], [place] 59806125 Assigned Rheumatology Provider 07/02/24 Jelena David OD [address] [facility] [place] [address] Ophthalmology 08/30/24 [place] [address] [place] [address] Assigned Neuroscience Provider 09/30/24 Maru Man PA-C [address] [place] [address] Physician Eyeglass Frames Inspector Dermatology 10/03/24 Maru Man PA-C [address] [place] [address] Physician Eyeglass Frames Inspector Dermatology 10/22/24 Jelena David OD [address] [facility] [place] [address] Assigned Surgical Provider 10/31/24 documented as of this encounter
--- OUTSIDE RECORDS SUMMARY | 2024-11-21 04:22 | XMS_ITS | Encounter Summary ---
Author Organization [place] Address [address] [place] [address] Care Team Providers Care Wellness Assistant Name Role Phone Diana Desir [facility] Unavailable Rain GalavizC Unavailable Tavia Wyatt MD Unavailable Erica Farrell APRN JEWEL HOLE DRILLER Unavailable Rich Barrett MD Unavailable [phone] Neil Kent MD Unavailable DesirKendrickDiana Stanislav [facility] Unavailable [phone] Livan Sharif MD Unavailable Catherine Cm MD Unavailable + Valery Veronica-C Unavailable Brea Quinn JEWELRY SALES JEWEL HOLE DRILLER Unavailable Alfonso Renteria MD Unavailable [phone] Esha GrimmC Primary Care Provider Radha Lomeli JEWELRY SALES JEWEL HOLE DRILLER Unavailable [phone] Jelena David OD Unavailable [place], Esha M PA-C Unavailable Valery Veronica PA-C Unavailable Rey Tay MD Unavailable Rocky Zepeda DO Unavailable Philip Dumont MD Unavailable Meredith Carrera PA-C Unavailable [phone] Neil Kent MD Unavailable Juan Pablo Emmanuel MD Unavailable [phone] Audrey Waite PA-C Unavailable [phone] Valery Veronica PA-C Unavailable [phone] Herminia Hatch MD Unavailable Jelena David OD Unavailable Juan Pablo Emmanuel MD Unavailable [phone] Maru Man PA-C Unavailable Maru Man PA-C Unavailable Jelena David OD Unavailable Encounter Details Date Type Department Care Team (Late st Contact Info) Description 06/20/2024 [facility] Heart [address] [address] Carley Myles, RN Social History Tobacco [...] Date Recorded PHQ-2 Score 1 02/07/2024 [facility] [...] exercise at this level? 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 Gender Identity Female 03/02/2021 5:45 PM CDT Sexual Orientation Straight 02/28/2020 12 :51 AM CDT documented as of this encounter Plan of Treatment Upcoming Encounters Date Type Department Care Team (Late st Contact Info) Description 11/21/2024 7:00 AM CDT Office Visit [facility] [address] [phone] Maru Man PA-C [address] [address] 12/20/2024 2:30 PM CDT Office Visit [address] [address] Esha Grimm PA-C [address] [place] [phone] 04/16/2025 11:00 AM CDT Virtual Visit [facility] Gastroenterology Clinic [address] 4th [place] [phone] Meredith Carrera PA-C [address] [place] [address] documented as of this encounter Visit Diagnoses Not on filedocumented in this encounter Additional Health Concerns Infection Onset Date Last Indicated Resolved Time Rule Out COVID-19 10/04/2024 10/04/2024 10/05/2024 9:42 AM CDT Rule Out COVID-19 11/20/2024 11/20/2024 Assessment Noted Time PHQ-9 Depression Total Score: 3 02/07/20 24 9:33 AM CDT documented as of this encounter Care Teams Wellness Assistant Relationship Specialty Start Date End Date Esha Grimm PA-C [address] [place] [phone] PCP - General Family Medicine 05/04/23 Diana Desir, [facility] [address] [place] [address] Pharmacist Pharmacist 04/17/21 Rain Galaviz PA-C [address] [place] [address] [address] [place] [address] Physician Heart Surgeon Dermatology 04/28/21 Tavia Wyatt MD [address] [place] [address] [address] [place] [address] Dermatology 07/14/21 Erica Farrell APRN JEWEL HOLE DRILLER [address] [place] [address] Nurse Practitioner Cardiovascular Disease 09/09/21 Rich Barrett MD [address] [place] 292745 Physician Ophthalmology 01/21/22 Neil Kent MD 500 [place], [place] 717645 Dermatology 02/24/22 Diana Desir, [facility] 3033 [place], [place] 526526 Assigned [facility] Pharmacist 04/07/22 Livan Sharif MD [address] [place] 369765 Cardiovascular Disease 05/14/22 Catherine Cm MD [address] [place] 023785 Cardiovascular Disease 07/21/22 Valery Veronica PAUcheC 909 [place], [place] 949175 Physician Heart Surgeon Dermatology 07/21/22 Brea Quinn APRN JEWEL HOLE DRILLER 500 [place], [place] 559635 Nurse Practitioner Dermatology 09/21/22 MyraAlfonso garcia MD [address] [facility] [address] [place] [address] Assigned Neuroscience Provider 04/02/23 09/29/24 Armani Radha ARLENE Stovall JEWEL HOLE DRILLER [address] [place] 395605 Assigned Heart and Vascular Provider 05/28/23 Jelena David OD [address] [facility] [address] [place] [id number] MD Ophthalmology 06/15/23 Esha Grimm PA-C [address] [place] [phone] Assigned PCP 07/16/23 Valery Veronica PA-C [address] [place] [address] 074235 Physician Heart Surgeon Dermatology 09/19/23 Rey Tay MD [address] [place] [address] 782165 Gastroenterology 09/20/23 Rocky Zepeda DO [address] [place] [address] 665325 Physician Gastroenterology 09/20/23 Philip Dumont MD [address] [place] [address] 524305 Physician Ophthalmology 09/22/23 Meredith Carrera PA-C [address] [place] [address] Assigned Gastroenterology Provider 11/01/23 Neil Kent MD [address] [place] [address] Dermatology 11/02/23 [place] [address] [place] [address] Neurological Surgery 12/26/23 Audrey Waite PA-C [address] [place] [address] Physician Heart Surgeon Dermatology 02/28/24 Valery Veronica PA-C [address] [place] [address] Physician Heart Surgeon Dermatology 04/10/24 Herminia Hatch MD [address] [place] [address] 33698125 Assigned Rheumatology Provider 07/02/24 Jelena David OD [address] [place] [address] [place] [address] Ophthalmology 08/30/24 [place] [address] [place] [address] Assigned Neuroscience Provider 09/30/24 Maru Man PA-C [address] [place] [address] Physician Heart Surgeon Dermatology 10/03/24 Maru aMn PA-C [address] [place] [address] Physician Heart Surgeon Dermatology 10/22/24 Jelena David OD [address] [place] [address] Assigned Surgical Provider 10/31/24 documented as of this encounter
--- OUTSIDE RECORDS SUMMARY | 2024-11-21 04:22 | XMS_ITS | Encounter Summary ---
Author Organization [place] Address [address] [place] [address] Care Team Providers Care Wrapper Leaf Inspector Name Role Phone Diana Desir Stanislav [facility] Unavailable Rain Galaviz PA-C Unavailable Tavia Wyatt MD Unavailable Erica Farrell APRN CHILD CARE ASSISTANT Unavailable Rich Barrett MD Unavailable [phone] Neil Kent MD Unavailable ThangKendrickDiana Stanislav [facility] Unavailable [phone] Livan Sharif MD Unavailable Catherine Cm MD Unavailable + Valery Veronica-C Unavailable [phone] Brea Quinn PARALEGAL ASSISTANT CHILD CARE ASSISTANT Unavailable Esha Grimm PA-C Primary Care Provider [phone] Radha Lomeli APRN CHILD CARE ASSISTANT Unavailable Jelena David OD Unavailable Esha Grimm PA-C Unavailable [phone] Valery Veronica PA-C Unavailable Rey Tay MD Unavailable Duane Rockyanne [facility] Unavailable Philip Dumont MD Unavailable Meredith Carrera PA-C Unavailable Neil Kent MD Unavailable Juan Pablo Emmanuel MD Unavailable Audrey Waite PA-C Unavailable Valery Veronica PA-C Unavailable [phone] Herminia Hatch MD Unavailable Jelena David OD Unavailable Juan Pablo Emmanuel MD Unavailable Maru Man-C Unavailable Maru Man-C Unavailable Jelena David OD Unavailable Encounter Details Date Type Department Care Team (Late st Contact Info) Description 10/11/2024 [facility] Medical Advice [address] [address] Diana Desir, [facility] [address] [place] [address] Social History Tobacco Use Types Packs/Day Years [...] exercise at this level? 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 Gender Identity Female 03/02/2021 5:45 PM CDT Sexual Orientation Straight 02/28/2020 12 :51 AM CDT documented as of this encounter Plan of Treatment Upcoming Encounters Date Type Department Care Team (Late st Contact Info) Description 11/21/2024 7:00 AM CDT Office Visit [facility] [address] [address] Maru Man PA-C [address] [address] 12/20/2024 2:30 PM CDT Office Visit [address] [phone] Esha Grimm PA-C [address] [place] [address] 04/16/2025 11:00 AM CDT Virtual Visit [facility] Gastroenterology Clinic [address] 4th [place] [phone] Meredith Carrera PA-C [address] [place] [address] documented as of this encounter Visit Diagnoses Not on filedocumented in this encounter Additional Health Concerns Infection Onset Date Last Indicated Resolved Time Rule Out COVID-19 11/20/2024 11/20/2024 Assessment Noted Time PHQ-9 Depression Total Score: 3 02/07/20 24 9:33 AM CDT documented as of this encounter Care Teams Wrapper Leaf Inspector Relationship Specialty Start Date End Date Esha Grimm PA-C [address] [place] [address] PCP - General Family Medicine 05/04/23 Diana Desir, [facility] 30[address] [place] [address] Pharmacist Pharmacist 04/17/21 Rain Galaviz PA-C [address] [place] [address] [address] [place] [address] Physician Surveyor Oil Well Directional Dermatology 04/28/21 Tavia Wyatt MD [address] [place] [address] [place] [address] Dermatology 07/14/21 Erica Farrell, PARALEGAL ASSISTANT CHILD CARE ASSISTANT [address] [place], [place] 0[address] Nurse Practitioner Cardiovascular Disease 09/09/21 Rich Barrett MD [address] [place], [place] 157745 Physician Ophthalmology 01/21/22 Neil Kent MD 500 [place], [place] 602655 Dermatology 02/24/22 Diana Desir, [facility] [address] [place], [place] 0[address]886 Assigned [facility] Pharmacist 04/07/22 Livan Sharif MD [address] [place], [place] 942575 Cardiovascular Disease 05/14/22 Catherine Cm MD [address] [place], [place] 346765 Cardiovascular Disease 07/21/22 Valery Veronica, PA-C [address] [place] [address] 458985 Physician Surveyor Oil Well Directional Dermatology 07/21/22 Brea Quinn APRN CHILD CARE ASSISTANT 500 [place], [place] 135485 Nurse Practitioner Dermatology 09/21/22 Radha Lomeli APRN CHILD CARE ASSISTANT [address] [place] [address] Assigned Heart and Vascular Provider 05/28/23 Jelena David OD [address] [facility] [place] [address] MD Ophthalmology 06/15/23 Esha Grimm PA-C [address] [place] [address]-915[address]283 Assigned PCP 07/16/23 Valery Veronica PA-C [address] [place] [address] 538985 Physician Surveyor Oil Well Directional Dermatology 09/19/23 Rey Tay MD [address] [place] [address] 566745 Gastroenterology 09/20/23 Rocky Zepeda DO [address] [place] [address] 944255 Physician Gastroenterology 09/20/23 Philip Dumont MD [address] [place] [address] 443505 Physician Ophthalmology 09/22/23 Meredith Carrera PA-C [address] [place] [address] 646965 Assigned Gastroenterology Provider 11/01/23 eNil Kent MD [address] 058250 Dermatology 11/02/23 [place] [address] [place] [address] Neurological Surgery 12/26/23 Audrey Waite PA-C 500 [place] [address] Physician Surveyor Oil Well Directional Dermatology 02/28/24 Valery Veronica PA-C 178286 [address] [address] Physician Surveyor Oil Well Directional Dermatology 04/10/24 Herminia Hatch MD [address] [place] [address] [id number] Assigned Rheumatology Provider 07/02/24 Jelena David, SONJA [address] [place] [address] [place] [address] Ophthalmology 08/30/24 [place] [address] [place] [address] Assigned Neuroscience Provider 09/30/24 Maru Man PA-C [address] [place] [address] Physician Surveyor Oil Well Directional Dermatology 10/03/24 Maru Man PA-C [address] [place] [address] Physician Surveyor Oil Well Directional Dermatology 10/22/24 Jelena David OD [address] [facility] [place] [address] Assigned Surgical Provider 10/31/24 documented as of this encounter
--- OUTSIDE RECORDS SUMMARY | 2024-11-21 04:22 | XMS_ITS | Encounter Summary ---
Author Organization [place] Address [address] [place] [address] Care Team Providers Care Cataloging Assistant Name Role Phone Diana Desir Stanislav [facility] Unavailable [phone] Rain Galaviz PA-C Unavailable Tavia Wyatt MD Unavailable Erica Farrell APRN PRESIDENT AND CHIEF EXECUTIVE OFFICER Unavailable Rich Barrett MD Unavailable [phone] Neil Kent MD Unavailable ThangKendrickDiana Stanislav [facility] Unavailable [phone] Livan Sharif MD Unavailable Catherine Cm MD Unavailable + Valery Veronica-C Unavailable Brea Quinn CLOTH SHEARER PRESIDENT AND CHIEF EXECUTIVE OFFICER Unavailable Esha Grimm PA-C Primary Care Provider Radha Lomeli APRN PRESIDENT AND CHIEF EXECUTIVE OFFICER Unavailable Jelena David OD Unavailable [phone] Esha Grimm PA-C Unavailable Valery Veronica PA-C Unavailable [phone] Rey Tay MD Unavailable Duane Rocky Unavailable Philip Dumont MD Unavailable [phone] LoreMeredith mayers PA-C Unavailable [phone] Neil Kent MD Unavailable Juan Pablo Emmanuel MD Unavailable Audrey Waite PA-C Unavailable [phone] Valery Veronica PA-C Unavailable [phone] Herminia Hatch MD Unavailable Jelena David OD Unavailable [phone] Juan Pablo Emmanuel MD Unavailable [phone] Maru Man-C Unavailable [phone] Maru Man-C Unavailable [phone] Jelena David OD Unavailable Encounter Details Date Type Department Care Team (Late st Contact Info) Description 10/10/2024 [facility] [address] [place] [address] Carley Myles RN Social History [...] week 05/07/2024 How often do you attend [facility]? 1 to 4 [...] 1 02/07/2024 [facility] - Occupational Stress [...] exercise at this level? 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 Gender Identity Female 03/02/2021 5:45 PM CDT Sexual Orientation Straight 02/28/2020 12 :51 AM CDT documented as of this encounter Plan of Treatment Upcoming Encounters Date Type Department Care Team (Late st Contact Info) Description 11/21/2024 7:00 AM CDT Office Visit [address] [phone] Maru Man PA-C [address] 801310 12/20/2024 2:30 PM CDT Office Visit [facility] [address] [place] [address] Esha Grimm PA-C [address] [place] [phone] 04/16/2025 11:00 AM CDT Virtual Visit [facility] [address] 4th [place] [phone] Meredith Carrera PA-C [address] [place] [address] documented as of this encounter Visit Diagnoses Not on filedocumented in this encounter Additional Health Concerns Infection Onset Date Last Indicated Resolved Time Rule Out COVID-19 11/20/2024 11/20/2024 Assessment Noted Time PHQ-9 Depression Total Score: 3 02/07/20 24 9:33 AM CDT documented as of this encounter Care Teams Cataloging Assistant Relationship Specialty Start Date End Date Esha Grimm PA-C [address] [facility] [place] [place] [address] PCP - General Family Medicine 05/04/23 Diana Desir, [facility] [address] [place], [place] 722506 Pharmacist Pharmacist 04/17/21 Rain Galaviz PA-C [address] [place] [address] [address] [facility] [place] [address] Physician Director Of Convention Services Dermatology 04/28/21 Tavia Wyatt MD [address] [place] [address] [address] [place] [id number] Dermatology 07/14/21 Erica Farrell APRN PRESIDENT AND CHIEF EXECUTIVE OFFICER [address] [facility] [address] [place] 740785 Nurse Practitioner Cardiovascular Disease 09/09/21 Rich Barrett MD [address] [place] 849565 Physician Ophthalmology 01/21/22 Neil Kent MD 500 [place], [place] 719915 Dermatology 02/24/22 Diana Desir, [facility] [address] [place], [place] 678736 Assigned MTM Pharmacist 04/07/22 Livan Sharif MD [address] [place], [place] 664[address] Cardiovascular Disease 05/14/22 Catherine Cm MD [address] [place] 8[address] Cardiovascular Disease 07/21/22 Valery Veronica, PA-C 909 [place], [place] 769295 Physician Director Of Convention Services Dermatology 07/21/22 Brea Quinn APRN PRESIDENT AND CHIEF EXECUTIVE OFFICER 500 [place], [place] 616405 Nurse Practitioner Dermatology 09/21/22 Radha Lomeli APRN PRESIDENT AND CHIEF EXECUTIVE OFFICER [address] [place], [place] 967205 Assigned Heart and Vascular Provider 05/28/23 Tommy Davidistine SONJA Garcia [address] [facility] [place] [address] Ophthalmology 06/15/23 Esha Grimm PA-C [address] [place] [phone] Assigned PCP 07/16/23 Valery Veronica PA-C [address] [place] [address] 909875 Physician Director Of Convention Services Dermatology 09/19/23 Rey Tay MD [address] [place] [address] 648895 MD Gastroenterology 09/20/23 Rocky Zepeda DO [address] [place] [address] 048605 Physician Gastroenterology 09/20/23 Philip Dumont MD 6 [place], [place] 917135 Physician Ophthalmology 09/22/23 Meredith Carrera PA-C [address] [place] [address] 823225 Assigned Gastroenterology Provider 11/01/23 Neil Kent MD [address] [place] [address] 659290 Dermatology 11/02/23 [place] [address] [place] [address] Neurological Surgery 12/26/23 Audrey Waite PA-C 500 [place] [address] Physician Director Of Convention Services Dermatology 02/28/24 Valery Veronica PA-C [address] [place] [address] Physician Director Of Convention Services Dermatology 04/10/24 Herminia Hatch MD [address] [place] [address] Assigned Rheumatology Provider 07/02/24 Jelena David OD [address] [place] [address] [place] [address] Ophthalmology 08/30/24 [place] [address] [place] [address] Assigned Neuroscience Provider 09/30/24 Maru Man PA-C [address] [place] [address] Physician Director Of Convention Services Dermatology 10/03/24 Maru Man PA-C [address] [place] [address] Physician Director Of Convention Services Dermatology 10/22/24 Jelena David OD [address] [place] [address] [place] [address] Assigned Surgical Provider 10/31/24 documented as of this encounter
--- OUTSIDE RECORDS SUMMARY | 2024-11-21 04:22 | XMS_ITS | Encounter Summary ---
Author Organization [place] Address [address] [place] [address] Care Team Providers Care Ditch Repairer Name Role Phone Diana Desir [facility] Unavailable [phone] Rain GalavizC Unavailable Tavia Wyatt MD Unavailable Erica Farrell APRN DELICATESSEN GOODS STOCK CLERK Unavailable Rich Barrett MD Unavailable [phone] Neil [place] MD Unavailable DesirKendrickDiana Stanislav [facility] Unavailable [phone] Livan Sharif MD Unavailable Catherine Cm MD Unavailable + Valery Veronica-C Unavailable Brea Quinn PERFORMANCE MAKEUP ARTIST DELICATESSEN GOODS STOCK CLERK Unavailable Alfonso Renteria MD Unavailable [phone] Esha GrimmC Primary Care Provider [phone] Radha Lomeli PERFORMANCE MAKEUP ARTIST DELICATESSEN GOODS STOCK CLERK Unavailable Jelena David OD Unavailable [place], Esha M PA-C Unavailable Valery Veronica PA-C Unavailable [phone] Rey Tay MD Unavailable Rocky Zepeda DO Unavailable Philip Dumont MD Unavailable [phone] Meredith Carrera PA-C Unavailable [phone] Neil Kent MD Unavailable Juan Pablo Emmanuel MD Unavailable Audrey Waite PA-C Unavailable [phone] Valery Veronica PA-C Unavailable [phone] Herminia Hatch MD Unavailable Jelena David OD Unavailable Juan Pablo Emmanuel MD Unavailable Maru Man PA-C Unavailable Maru Man PA-C Unavailable Jelena David OD Unavailable Encounter Details Date Type Department Care Team (Late st Contact Info) Description 06/21/2024 [facility] Medical Advice [address] [place] [address] [address] Antonella Eldridge RN Social History [...] Answer Date Recorded PHQ-2 Score 1 02/07/2024 [facility] - Occupational Stress Questionnaire Answer [...] exercise at this level? 20 min 05/07/2024 [place] Depression Scale Answer Date Recorded [place] Depression Score 5 01/14/2021 Last EPDS [...] CDT Legal Sex Female 4:13 AM MECHANICAL DETAILER Gender Identity Female 03/02/2021 5:45 PM CDT Sexual Orientation Straight 02/28/2020 12 :51 AM CDT documented as of this encounter Plan of Treatment Upcoming Encounters Date Type Department Care Team (Late st Contact Info) Description 11/21/2024 7:00 AM CDT Office Visit [facility] [address] [phone] Maru Man PA-C [address] [address] 12/20/2024 2:30 PM CDT Office Visit [address] [phone] Esha Grimm PA-C [address] [place] [phone] 04/16/2025 11:00 AM CDT Virtual Visit [facility] G[facility] Clinic [address] 4th [place] [phone] Meredith Carrera PA-C [address] [place] [address] documented as of this encounter Visit Diagnoses Not on filedocumented in this encounter Additional Health Concerns Infection Onset Date Last Indicated Resolved Time Rule Out COVID-19 10/04/2024 10/04/2024 10/05/2024 9:42 AM CDT Rule Out COVID-19 11/20/2024 11/20/2024 Assessment Noted Time PHQ-9 Depression Total Score: 3 02/07/20 24 9:33 AM CDT documented as of this encounter Care Teams Ditch Repairer Relationship Specialty Start Date End Date Esha Grimm PA-C [address] [place] [address] PCP - General Family Medicine 05/04/23 Diana Desir, [facility] [address] [place] [address] Pharmacist Pharmacist 04/17/21 Rain Galaviz PA-C [address] [place] [address] [place] [address] Physician Block Cleaner Dermatology 04/28/21 Tavia Wyatt MD [address] [place] [address] [place] [address] Dermatology 07/14/21 Erica Farrell APRN DELICATESSEN GOODS STOCK CLERK [address] [place] [address] Nurse Practitioner Cardiovascular Disease 09/09/21 Rich Barrett MD [address] [place], [place] 115[address] Physician Ophthalmology 01/21/22 Neil [place] MD 500 [place], [place] 277815 Dermatology 02/24/22 Diana Desir, [facility] 3033 [place], [place] 182686 Assigned [place] Pharmacist 04/07/22 Livan Sharif MD [address] [place] [address]435 Cardiovascular Disease 05/14/22 Catherine Cm MD [address] [place] 7[address] Cardiovascular Disease 07/21/22 Valery Veronica, PA-C 909 [place], [place] 894995 Physician Block Cleaner Dermatology 07/21/22 Brea Quinn APRN DELICATESSEN GOODS STOCK CLERK 500 [place], [place] 600935 Nurse Practitioner Dermatology 09/21/22 Alfonso Renteria MD [address] [facility] [address] [place] [address] Assigned Neuroscience Provider 04/02/23 09/29/24 Armani Radha ARLENE Stovall DELICATESSEN GOODS STOCK CLERK [address] [place] [address] Assigned Heart and Vascular Provider 05/28/23 Jelena David OD [address] [facility] [address] MD Ophthalmology 06/15/23 Esha Grimm PA-C [address] [place] [phone] Assigned PCP 07/16/23 Valery Veronica PA-C [address] [place] [address] 296215 Physician Block Cleaner Dermatology 09/19/23 Rey Tay MD [address] [place] [address] 007855 Gastroenterology 09/20/23 Rocky Zepeda DO [address] [place] [address] Physician Gastroenterology 09/20/23 Philip Dumont MD [address] [place] [address] Physician Ophthalmology 09/22/23 Meredith Carrera PA-C [address] [place] [address] Assigned Gastroenterology Provider 11/01/23 Neil [place] MD [address] [place] [address] Dermatology 11/02/23 [place] [address] [place] [address] Neurological Surgery 12/26/23 Audrey Waite PA-C [address] [place] [address] Physician Block Cleaner Dermatology 02/28/24 Valery Veronica PA-C 165958 [address] [place] [address] Physician Block Cleaner Dermatology 04/10/24 Herminia Hatch MD [address] [place] [address] [phone] Assigned Rheumatology Provider 07/02/24 Jelena David OD [address] [place] [address] [place] [address] Ophthalmology 08/30/24 [place] [address] [place] [address] Assigned Neuroscience Provider 09/30/24 Maru Man PA-C [address] [place] [address] Physician Block Cleaner Dermatology 10/03/24 Maru Man PA-C [address] [place] [address] Physician Block Cleaner Dermatology 10/22/24 [place] [address] [place] [address] [place] [address] Assigned Surgical Provider 10/31/24 documented as of this encounter
--- OUTSIDE RECORDS SUMMARY | 2024-11-21 04:22 | XMS_ITS | Encounter Summary ---
Author Organization [facility] Address [address] [place] [address] Care Team Providers Care Video Game Tester Name Role Phone Diana Desir [facility] Unavailable Rain Galaviz PA-C Unavailable Tavia Wyatt MD Unavailable Erica Farrell APRN STRAIN TECHNICIAN Unavailable Rich Barrett MD Unavailable [phone] Neil [place] MD Unavailable iDana Desir [facility] Unavailable Livan Sharif MD Unavailable Catherine Cm MD Unavailable + Valery Veronica PA-C Unavailable Brea Quinn RN COMMUNITY STRAIN TECHNICIAN Unavailable Brea Quinn RN COMMUNITY STRAIN TECHNICIAN Unavailable Jose Francisco Johnson MD Unavailable Alfonso Renteria MD Unavailable [phone] Esha Grimm PA-C Primary Care Provider Radha Lomeli APRN STRAIN TECHNICIAN Unavailable Jelena David OD Unavailable Pao Joseph RN Unavailable Unavailable Esha Grimm PA-C Unavailable [phone] Valery Veronica PA-C Unavailable Rey Tay MD Unavailable Rocky Zepeda DO Unavailable Philip Dumont MD Unavailable Meredith Carrera PA-C Unavailable Neil [place] MD Unavailable Juan Pablo Emmanuel MD Unavailable Audrey Waite PA-C Unavailable JeremíasValery damon PA-C Unavailable Herminia Hatch MD Unavailable Jelena David OD Unavailable [phone] Juan Pablo Emmanuel MD Unavailable Maru Man PA-C Unavailable Maru Man PA-C Unavailable Jelena David OD Unavailable Encounter Details Date Type Department Care Team (Late st Contact Info) Description 08/10/2023 [facility] Medical Advice [facility] [address] [place] [phone] Esha Grimm PA-C [id number] [place] [phone] Social History Tobacco Use Types Packs/Day [...] exercise at this level? 30 min 03/10/2023 [place] Depression Scale Answer Date Recorded [place] Depression Score 5 01/14/2021 Last EPDS Self [...] CDT Legal Sex Female 4:13 AM IT SOLUTIONS ARCHITECT Gender Identity Female 03/02/2021 5:45 PM CDT Sexual Orientation Straight 02/28/2020 12 :51 AM CDT documented as of this encounter Miscellaneous Notes * Telephone Encounter - Asiya Reddy RN - 08/10/2023 11:40 AM IT SOLUTIONS ARCHITECT Esha- see [employer] message below. Patient did call to see if E-Visit would be addressed today. No immediate concern at this time. Advised UC if needed sooner. Asiya Fedderly, RN SOLUTIONS ARCHITECT documented in this encounter Plan of Treatment Upcoming Encounters Date Type Department Care Team (Late st Contact Info) Description 11/21/2024 7:00 AM CDT Office Visit [facility] [address] [address] Maru Man PA-C [address] [place] [address] 12/20/2024 2:30 PM CDT Office Visit [facility] [address] [place] [phone] Esha Grimm PA-C [id number] [place] [phone] 04/16/2025 11:00 AM CDT Virtual Visit [facility] Clinic [address] [phone] Meredith Carrera PA-C [address] [place] [address] documented as of this encounter Visit Diagnoses [...] Score: 4 06/20/20 23 8:40 AM IT SOLUTIONS ARCHITECT documented as of this encounter Care Teams Video Game Tester Relationship Specialty Start Date End Date Esha Grimm PA-C [address] [place] [address]483 PCP - General Family Medicine 05/04/23 Diana Desir, [facility] [address] [place] [address] Pharmacist Pharmacist 04/17/21 Rain Galaviz PA-C [address] [place] [address] [address] [facility] [place] [address] Physician Auditing Manager Dermatology 04/28/21 Tavia Wyatt MD [address] [place] [address] [address] [place] [address] Dermatology 07/14/21 Erica Farrell APRN STRAIN TECHNICIAN [address] [place] [address] Nurse Practitioner Cardiovascular Disease 09/09/21 Rich Barrett MD [address] [place] [address] Physician Ophthalmology 01/21/22 Neil Knet MD 500 [place] [address] Dermatology 02/24/22 Diana Desir, [facility] [address] [place] [address] Assigned MTM Pharmacist 04/07/22 Livan Sharif MD [address] [facility] [address] [place] [address] Cardiovascular Disease 05/14/22 Catherine Cm MD [address] [facility] S [facility] [address] [place] [address] Cardiovascular Disease 07/21/22 Valery Veronica, PA-C [address] [place] [address] 013765 Physician Auditing Manager Dermatology 07/21/22 Brea Quinn APRN STRAIN TECHNICIAN 500 [place], [place] 583545 Nurse Practitioner Dermatology 09/21/22 Brea Quinn APRN STRAIN TECHNICIAN 6401 [place] [address] Assigned Surgical Provider 10/09/22 05/01/24 [place] [address] [address] [facility] 300 [address] Assigned Musculoskeletal Provider 10/09/22 05/01/24 Alfonso Renteria MD [address] [facility] 200 [place], [place] 426806 Assigned Neuroscience Provider 04/02/23 09/29/24 Radha Lomeli APRN STRAIN TECHNICIAN [address] [place] [address] Assigned Heart and Vascular Provider 05/28/23 Jelena David OD [address] [place] [address] MD Ophthalmology 06/15/23 Pao Joseph, RN Personal Advocate & Liaison (PAL) Nurse 08/01/23 11/07/23 Esha Grimm PA-C [address] [place] [phone] Assigned PCP 07/16/23 Valery Veronica PA-C [address] [place] [address] 395385 Physician Auditing Manager Dermatology 09/19/23 Rey Tay MD [address] [place] [address] 869405 MD Gastroenterology 09/20/23 Rocky Zepeda DO [address] [place] [address] 105665 Physician Gastroenterology 09/20/23 Philip Dumont MD [address] [place] [address] 980355 Physician Ophthalmology 09/22/23 Meredith Carrera PA-C [address] [place] [address] 494605 Assigned Gastroenterology Provider 11/01/23 Neil Kent MD [address] [place] [address] Dermatology 11/02/23 [place] [address] [address] Neurological Surgery 12/26/23 Audrey Waite PA-C [address] [place] [address] Physician Auditing Manager Dermatology 02/28/24 Valery Veronica PA-C 694379 [address] [place] [address] Physician Auditing Manager Dermatology 04/10/24 Herminia Hatch MD [address] [place] [address] Assigned Rheumatology Provider 07/02/24 Jelena David OD [address] [place] [address] [place] [address] Ophthalmology 08/30/24 [place] [address] 300 [address] Assigned Neuroscience Provider 09/30/24 Maru Man PA-C [address] [place] [address] Physician Auditing Manager Dermatology 10/03/24 Maru Man PA-C [address] [place] [address] Physician Auditing Manager Dermatology 10/22/24 Jelena David OD [address] [place] [address] [place] [address] Assigned Surgical Provider 10/31/24 documented as of this encounter
--- OUTSIDE RECORDS SUMMARY | 2024-11-21 04:22 | XMS_ITS | Encounter Summary ---
Author Organization [place] Address [address] [place] [address] Care Team Providers Care Addresser Name Role Phone Diana Desir [facility] Unavailable Rain Galaviz PA-C Unavailable [phone] Tavia Wyatt MD Unavailable Erica Farrell APRN MUCKER OPERATOR Unavailable Rich Barrett MD Unavailable [phone] Neil Kent MD Unavailable Diana Desir [facility] Unavailable [phone] Livan Sharif MD Unavailable Catherine Cm MD Unavailable + Valery Veronica PA-C Unavailable Brea Quinn DIE EQUIPMENT OPERATOR MUCKER OPERATOR Unavailable Brea Quinn DIE EQUIPMENT OPERATOR MUCKER OPERATOR Unavailable Jose Francisco Johnson MD Unavailable Alfonso Renteria MD Unavailable [phone] Esha Grimm PA-C Primary Care Provider [phone] Radha Lomeli APRN MUCKER OPERATOR Unavailable Jelena David OD Unavailable Pao Joseph RN Unavailable Unavailable Esha Grimm Adam PA-C Unavailable [phone] Valery Veronica PA-C Unavailable [phone] Rey Tay MD Unavailable Rocky Zepeda DO Unavailable Philip Dumont MD Unavailable [phone] Meredith Carrera PA-C Unavailable [phone] Neil Kent MD Unavailable Juan Pablo Emmanuel MD Unavailable [phone] Audrey Waite PA-C Unavailable [phone] JeremíasValery damon PA-C Unavailable Herminia Hatch MD Unavailable Jelena David OD Unavailable [phone] Juan Pablo Emmanuel MD Unavailable [phone] Maru Man PA-C Unavailable Maru Man PA-C Unavailable [phone] Jelena David OD Unavailable Encounter Details Date Type Department Care Team (Late st Contact Info) Description 08/25/2023 MyC Medical Advice [facility] [address] [place] [address] Marija Polanco, VJ Social History [...] Answer Date Recorded PHQ-2 Score 0 06/20/2023 [facility] - [...] PM CDT Legal Sex Female 4:13 AM SCHOOL CLERK Gender Identity Female 03/02/2021 5:45 PM CDT Sexual Orientation Straight 02/28/2020 12 :51 AM CDT documented as of this encounter Plan of Treatment Upcoming Encounters Date Type Department Care Team (Late st Contact Info) Description 11/21/2024 7:00 AM CDT Office Visit [facility] [address] [address] Maru Man PA-C [address] [address] 12/20/2024 2:30 PM CDT Office Visit [facility] [address] [place] [phone] Esha Grimm PA-C [address] [place] [phone] 04/16/2025 11:00 AM CDT Virtual Visit [facility] [address] [place] [phone] Meredith Carrera PA-C [address] [place] [address] 803045 documented as of this encounter Visit Diagnoses [...] Total Score: 4 06/20/20 23 8:40 AM SCHOOL CLERK documented as of this encounter Care Teams Addresser Relationship Specialty Start Date End Date Esha Grimm PA-C [address] [place] [phone] PCP - General Family Medicine 05/04/23 Diana Desir, [facility] [address] [facility] [place] [address] Pharmacist Pharmacist 04/17/21 Rain Galaviz PA-C [address] [place] [address] [place] [address] Physician Press Operator [employer] Dermatology 04/28/21 Tavia Wyatt MD [address] [place] [address] [address] [place] [address] Dermatology 07/14/21 Erica Farrell APRN MUCKER OPERATOR [address] [place] [address] Nurse Practitioner Cardiovascular Disease 09/09/21 Rich Barrett MD [address] [place] 257435 Physician Ophthalmology 01/21/22 Neil Kent MD [address] [place] [address] 529195 Dermatology 02/24/22 [facility] [address] [place] [address] 323766 Assigned [facility] Pharmacist 04/07/22 Livan Sharif MD [address] [place] [address] Cardiovascular Disease 05/14/22 Catherine Cm MD [address] [place] 775675 Cardiovascular Disease 07/21/22 Valery Veronica, PA-C [address] [place] [address] 584335 Physician Press Operator [employer] Dermatology 07/21/22 Brea Quinn APRN MUCKER OPERATOR 500 [place], [place] 491895 Nurse Practitioner Dermatology 09/21/22 Brea Quinn APRN MUCKER OPERATOR 6401 [place] [address] Assigned Surgical Provider 10/09/22 05/01/24 [place] [address] [address] Assigned Musculoskeletal Provider 10/09/22 05/01/24 Alfonso Renteria MD 5775 [facility] 200 [place], [place] 235286 Assigned Neuroscience Provider 04/02/23 09/29/24 Radha Lomeli APRN MUCKER OPERATOR [address] [place] [id number] [place] [address] Assigned Heart and Vascular Provider 05/28/23 Jelena David OD [address] [place] [address] Ophthalmology 06/15/23 Pao Joseph, RN Personal Advocate & Liaison (PAL) Nurse 08/01/23 11/07/23 Esha Grimm PA-C [address] [place] [address]-807583 Assigned PCP 07/16/23 Valery Veronica PA-C [address] [place] [address] Physician Press Operator [employer] Dermatology 09/19/23 Rey Tay MD [address] [place] [address] MD Gastroenterology 09/20/23 Rocky Zepeda DO [address] [place] [address] Physician Gastroenterology 09/20/23 Philip Dumont MD [address] [place] [address] Physician Ophthalmology 09/22/23 Meredith Carrera PA-C [address] [place] [address] Assigned Gastroenterology Provider 11/01/23 Neil Kent MD [address] [address] Dermatology 11/02/23 [place] [address] [place] [address] Neurological Surgery 12/26/23 Audrey Waite PA-C [address] [place] [address] 865875 Physician Press Operator [employer] Dermatology 02/28/24 Valery Veronica PA-C [address]13 [address] [place] [address] Physician Press Operator [employer] Dermatology 04/10/24 Herminia Hatch MD [facility]5 [place], [place] 89304125 Assigned Rheumatology Provider 07/02/24 Jelena David OD [address] [facility] [place] [address] Ophthalmology 08/30/24 [place] [address] [place] [address] Assigned Neuroscience Provider 09/30/24 Maru Man PA-C [address] [place] [address] Physician Press Operator [employer] Dermatology 10/03/24 Maru Man PA-C [address] [place] [address] Physician Press Operator [employer] Dermatology 10/22/24 Jelena David OD [address] [facility] [place] [address] Assigned Surgical Provider 10/31/24 documented as of this encounter
--- OUTSIDE RECORDS SUMMARY | 2024-11-21 04:22 | XMS_ITS | Encounter Summary ---
Author Organization [facility] Address [address] [place] [address] Care Team Providers Care Medical Receptionist Name Role Phone Diana Desir [facility] Unavailable Rain Galaviz PA-C Unavailable [phone] Tavia Wyatt MD Unavailable Erica Farrell APRN ACTUARIAL SCIENCE PROFESSOR Unavailable Rich Barrett MD Unavailable [phone] Neil Kent MD Unavailable Diana Desir [facility] Unavailable Livan Sharif MD Unavailable Catherine Cm MD Unavailable + Valery Veronica PA-C Unavailable Brea Quinn MONEY POSITION OFFICER ACTUARIAL SCIENCE PROFESSOR Unavailable [phone] Brea Quinn MONEY POSITION OFFICER ACTUARIAL SCIENCE PROFESSOR Unavailable [phone] Jose Francisco Johnson MD Unavailable Alfonso Renteria MD Unavailable [phone] Esha Grimm PA-C Primary Care Provider Radha Lomeli APRN ACTUARIAL SCIENCE PROFESSOR Unavailable Jelena David OD Unavailable Pao Joseph RN Unavailable Unavailable AlfaJesusEsha M PA-C Unavailable [phone] Valery Veronica PA-C Unavailable [phone] Rey Tay MD Unavailable Rocky Zepeda DO Unavailable Philip Dumont MD Unavailable Meredith Carrera PA-C Unavailable Neil Kent MD Unavailable Juan Pablo Emmanuel MD Unavailable Audrey Waite PA-C Unavailable JeremíasValery damon PA-C Unavailable Herminai Hatch MD Unavailable Jelena David OD Unavailable Juan Pablo Emmanuel MD Unavailable Maru Man PA-C Unavailable Maur Man PA-C Unavailable Jelena David OD Unavailable Encounter Details Date Type Department Care Team (Late st Contact Info) Description 08/04/2023 MyC Medical Advice [address] [address] Diana Desir, [facility] 9282 [place] [address] Social History Tobacco Use Types [...] Score 0 06/20/2023 [facility] [...] at this level? 30 min 03/10/2023 [place] Depression Scale Answer Date Recorded [place] Depression Score 5 01/14/2021 Last EPDS Self [...] CDT Legal Sex Female 4:13 AM CABLE OPERATOR Gender Identity Female 03/02/2021 5:45 PM CDT Sexual Orientation Straight 02/28/2020 12 :51 AM CDT documented as of this encounter Plan of Treatment Upcoming Encounters Date Type Department Care Team (Late st Contact Info) Description 11/21/2024 7:00 AM CDT Office Visit [facility] [address] [phone] Maru Man PA-C [address] [address] 12/20/2024 2:30 PM CDT Office Visit [facility] [address] [place] [address] Esha Grimm PA-C [address] [place] [address] 04/16/2025 11:00 AM CDT Virtual Visit [facility] [address] 4th [place] [phone] Meredith Carrera PA-C [address] [place] [address] 411655 documented as of this encounter Visit Diagnoses [...] Total Score: 4 06/20/20 23 8:40 AM CABLE OPERATOR documented as of this encounter Care Teams Medical Receptionist Relationship Specialty Start Date End Date Esha Grimm PA-C [address] [place] [address] PCP - General Family Medicine 05/04/23 Diana Desir, [facility] [address] [place] [address] Pharmacist Pharmacist 04/17/21 Rain Galaviz PA-C [address] [place] [address] [address] [place] [address] Physician Size Mixer Dermatology 04/28/21 Tavia Wyatt MD [address] [place] [address] [address] [place] [address] Dermatology 07/14/21 Erica Farrell APRN ACTUARIAL SCIENCE PROFESSOR [address] [place] 345555 Nurse Practitioner Cardiovascular Disease 09/09/21 Rich Barrett MD [address] [place] 645235 Physician Ophthalmology 01/21/22 Neil Kent MD 500 [place], [place] 411785 Dermatology 02/24/22 Diana Desir, [facility] 30[address] [place], [place] 586086 Assigned MTM Pharmacist 04/07/22 Livan Sharif MD [address] [place] [address] Cardiovascular Disease 05/14/22 Catherine Cm MD [address] [place] [address] Cardiovascular Disease 07/21/22 Valery Veronica PA-C 909 [place] [address] Physician Size Mixer Dermatology 07/21/22 Brea Quinn APRN ACTUARIAL SCIENCE PROFESSOR 500 [place] [address] Nurse Practitioner Dermatology 09/21/22 Brea Quinn APRN ACTUARIAL SCIENCE PROFESSOR 6401 [place] [address] Assigned Surgical Provider 10/09/22 05/01/24 [place] [address] [place] [address] Assigned Musculoskeletal Provider 10/09/22 05/01/24 Alfonso Renteria MD 5775 [facility] 200 [place], [place] 53534416 Assigned Neuroscience Provider 04/02/23 09/29/24 Radha Lomeli APRN ACTUARIAL SCIENCE PROFESSOR 6405 [facility] [address] [place] [address] Assigned Heart and Vascular Provider 05/28/23 Jelena David OD [address] [place] [address] Ophthalmology 06/15/23 Pao Joseph, VJ Personal Advocate & Liaison (PAL) Nurse 08/01/23 11/07/23 Esha Grimm PA-C [address] [place] [phone] Assigned PCP 07/16/23 Valery Veronica PA-C 9 [place] [address] Physician Size Mixer Dermatology 09/19/23 Rey Tay MD [address] [place] [address] 129945 MD Gastroenterology 09/20/23 Rocky Zepeda DO [address] [place] [address] 231345 Physician Gastroenterology 09/20/23 Philip Dumont MD [address] [place] [address] 800825 Physician Ophthalmology 09/22/23 Meredith Carrera PA-C [address] [place] [address] 841505 Assigned Gastroenterology Provider 11/01/23 Neil Kent MD [address] 166060 Dermatology 11/02/23 [place] [address] [place] [address] Neurological Surgery 12/26/23 Audrey Waite PA-C [address] [place] [address] Physician Size Mixer Dermatology 02/28/24 Valery Veronica PA-C [address] [facility] [address] Physician Size Mixer Dermatology 04/10/24 Herminia Hatch MD [facility]5 [place] [address] Assigned Rheumatology Provider 07/02/24 Jelena David OD [address] [place] [address] [place] [address] Ophthalmology 08/30/24 [place] [address] [place] [address] Assigned Neuroscience Provider 09/30/24 Maru Man PA-C [address] [place] [address] Physician Size Mixer Dermatology 10/03/24 Maru Man PA-C [address] [place] [address] Physician Size Mixer Dermatology 10/22/24 Jelena David OD [address] [place] [address] [place] [address] Assigned Surgical Provider 10/31/24 documented as of this encounter
--- OUTSIDE RECORDS SUMMARY | 2024-11-21 04:22 | XMS_ITS | Encounter Summary ---
Author Organization [facility] Address [address] [place] [address] Care Team Providers Care Metal Coater Operator Name Role Phone Diana Desir [facility] Unavailable [phone] Rain Galaviz PA-C Unavailable Tavia Wyatt MD Unavailable Erica Farrell APRN PORCELAIN MIXER Unavailable Rich Barrett MD Unavailable [phone] Neil Kent MD Unavailable Diana Desir [facility] Unavailable Livan Sharif MD Unavailable Catherine Cm MD Unavailable + Valery Veronica PA-C Unavailable Brea Quinn NETWORK PLANNER PORCELAIN MIXER Unavailable Brea Quinn NETWORK PLANNER PORCELAIN MIXER Unavailable Jose Francisco Johnson MD Unavailable Alfonso Renteria MD Unavailable [phone] Esha Grimm PA-C Primary Care Provider [phone] Radha Lomeli APRN PORCELAIN MIXER Unavailable Jelena David OD Unavailable Pao Joseph RN Unavailable Unavailable AlfaWicholincoln Medina PA-C Unavailable [phone] Valery Veronica PA-C Unavailable [phone] Rey Tay MD Unavailable Duane Rockyanne [facility] Unavailable Philip Dumont MD Unavailable [phone] Meredith Carrera PA-C Unavailable [phone] Neil Kent MD Unavailable Juan Pablo Emmanuel MD Unavailable Audrey Waite PA-C Unavailable [phone] JeremíasValery damon PA-C Unavailable Herminia Hatch MD Unavailable Jelena David OD Unavailable [phone] Juan Pablo Emmanuel MD Unavailable [phone] Maru Man PA-C Unavailable Maru Man PA-C Unavailable [phone] Jelena David OD Unavailable Encounter Details Date Type Department Care Team (Late st Contact Info) Description 08/31/2023 MyC [facility]ice [facility] 5775 [facility] [address] [place] [address] Amalia Reyes, VJ Social History [...] PHQ-2 Score 0 06/20/2023 [facility] - [...] exercise at this level? 30 min 03/10/2023 [place] Depression Scale Answer Date Recorded [place] Depression Score 5 01/14/2021 Last EPDS Self [...] PM CDT Legal Sex Female 4:13 AM SEED COLLECTOR Gender Identity Female 03/02/2021 5:45 PM CDT Sexual Orientation Straight 02/28/2020 12 :51 AM CDT documented as of this encounter Plan of Treatment Upcoming Encounters Date Type Department Care Team (Late st Contact Info) Description 11/21/2024 7:00 AM CDT Office Visit [facility] [address] [phone] Maru Man PA-C [address] [address] 12/20/2024 2:30 PM CDT Office Visit [facility] [address] [place] [phone] Esha Grimm PA-C [address] [place] [address] 04/16/2025 11:00 AM CDT Virtual Visit [facility] [address] 4th [place] [phone] Meredith Carrera PA-C [address] [place] [address] 248125 documented as of this encounter Visit Diagnoses [...] Score: 4 06/20/20 23 8:40 AM SEED COLLECTOR documented as of this encounter Care Teams Metal Coater Operator Relationship Specialty Start Date End Date Esha Grimm PA-C [address] [place] [address] PCP - General Family Medicine 05/04/23 Diana Desir, [facility]3 [facility] [place] [address] Pharmacist Pharmacist 04/17/21 Rain Galaviz PA-C [address] [place] [address] DR [facility] [facility] [address] Physician Aws Software Development Engineer Dermatology 04/28/21 Tavia Wyatt MD [address] [place] [address] [place] [address] Dermatology 07/14/21 Erica Farrell APRN PORCELAIN MIXER [address] [place] [address] Nurse Practitioner Cardiovascular Disease 09/09/21 Rich Barrett MD [address] [place] 7[address]65 Physician Ophthalmology 01/21/22 Neil Kent MD [address] [place] [address] 542645 Dermatology 02/24/22 [facility] [address] [place] [address] 941096 Assigned [place] Pharmacist 04/07/22 Livan Sharif MD [address] [facility] [place] [address] Cardiovascular Disease 05/14/22 Catherine Cm MD [address] [facility] 481225 Cardiovascular Disease 07/21/22 Valery Veronica, PA-C [address] [place] [address] 595665 Physician Aws Software Development Engineer Dermatology 07/21/22 Brea Quinn APRN PORCELAIN MIXER 500 [place], [place] 164895 Nurse Practitioner Dermatology 09/21/22 Brea Quinn APRN PORCELAIN MIXER 6401 [place] [address] Assigned Surgical Provider 10/09/22 05/01/24 [place] [address] [facility] 300 [place] [address] Assigned Musculoskeletal Provider 10/09/22 05/01/24 Alfonso Renteria MD 5775 [facility] 200 [place] [address] Assigned Neuroscience Provider 04/02/23 09/29/24 Radha Lomeli APRN PORCELAIN MIXER 6405 [facility] [address] [place] [address] Assigned Heart and Vascular Provider 05/28/23 Jelena David OD [address] [facility] [place] [address] Ophthalmology 06/15/23 Pao Joseph, RN Personal Advocate & Liaison (PAL) Nurse 08/01/23 11/07/23 Esha Grimm PA-C [address] [place] [address]-629583 Assigned PCP 07/16/23 Valery Veronica PA-C [address] [place] [address] Physician Aws Software Development Engineer Dermatology 09/19/23 Rey Tay MD [address] [place] [address] MD Gastroenterology 09/20/23 Rocky Zepeda DO [address] [place] [address] Physician Gastroenterology 09/20/23 Philip Dumont MD [address] [place] [address] Physician Ophthalmology 09/22/23 Meredith Carrera PA-C [address] [place] [address] Assigned Gastroenterology Provider 11/01/23 Neil Kent MD [address] [address] Dermatology 11/02/23 [place] [address] [place] [address] Neurological Surgery 12/26/23 Audrey Waite PA-C [address] [place] [address] Physician Aws Software Development Engineer Dermatology 02/28/24 Valery Veronica PA-C [address]73 [address] [place] [address] Physician Aws Software Development Engineer Dermatology 04/10/24 Herminia Hatch MD [facility]5 [place], [place] 10793125 Assigned Rheumatology Provider 07/02/24 Jelena David OD [facility]5 [facility] [place] [address] Ophthalmology 08/30/24 [place] [address] [place] [address] Assigned Neuroscience Provider 09/30/24 Maru Man PA-C [address] [place] [address] Physician Aws Software Development Engineer Dermatology 10/03/24 Maru Man PA-C [address] [place] [address] Physician Aws Software Development Engineer Dermatology 10/22/24 Jelena David OD [facility]5 [facility] [place] [address] Assigned Surgical Provider 10/31/24 documented as of this encounter
--- OUTSIDE RECORDS SUMMARY | 2024-11-21 04:22 | XMS_ITS | Encounter Summary ---
Author Organization [place] Address [address] [place] [address] Care Team Providers Care Metal Or Wood Blocker Name Role Phone Diana Desir Stanislav [facility] Unavailable Rain Galaviz PA-C Unavailable Tavia Wyatt MD Unavailable Erica Farrell APRN RAILROAD COMMISSIONER Unavailable Rich Barrett MD Unavailable [phone] Neil Kent MD Unavailable ThangKendrickDiana Stanislav [facility] Unavailable [phone] Livan Sharif MD Unavailable Catherine Cm MD Unavailable + Valery Veronica-C Unavailable Brea Quinn ERP SPECIALIST RAILROAD COMMISSIONER Unavailable Esha Grimm PA-C Primary Care Provider Radha Lomeli APRN RAILROAD COMMISSIONER Unavailable Jelena David OD Unavailable Esha Grimm PA-C Unavailable [phone] Valery Veronica PA-C Unavailable [phone] Rey Tay MD Unavailable Duane Rocky Unavailable Philip Dumont MD Unavailable Meredith Carrera PA-C Unavailable [phone] Neil Kent MD Unavailable Juan Pablo Emmanuel MD Unavailable [phone] Audrey Waite PA-C Unavailable [phone] Valery Veronica PA-C Unavailable Herminia Hatch MD Unavailable Jelena David OD Unavailable Juan Pablo Emmanuel MD Unavailable [phone] Maru Man-C Unavailable [phone] Maru Man-C Unavailable [phone] Jelena David OD Unavailable Encounter Details Date Type Department Care Team (Late st Contact Info) Description 10/01/2024 [facility] Medical Advice [address] [place] [address] Marija Bailey RN Social History [...] week 05/07/2024 How often do you attend [facility]? 1 to 4 times [...] 02/07/2024 [facility] [...] exercise at this level? 20 min 05/07/2024 [place] Depression Scale Answer Date Recorded [place] [...] CDT Legal Sex Female 4:13 AM CONTRACT WRITER Gender Identity Female 03/02/2021 5:45 PM CDT Sexual Orientation Straight 02/28/2020 12 :51 AM CDT documented as of this encounter Plan of Treatment Upcoming Encounters Date Type Department Care Team (Late st Contact Info) Description 11/21/2024 7:00 AM CDT Office Visit [address] [phone] Maru Man PA-C [address] 182950 12/20/2024 2:30 PM CDT Office Visit [facility] [address] [place] [address] Esha Grimm PA-C [address] [place] [phone] 04/16/2025 11:00 AM CDT Virtual Visit [facility] Clinic [address] 4th [place] [phone] Meredith Carrera PA-C [address] [place] [address] documented as of this encounter Visit Diagnoses Not on filedocumented in this encounter Additional Health Concerns Infection Onset Date Last Indicated Resolved Time Rule Out COVID-19 10/04/2024 10/04/2024 10/05/2024 9:42 AM CDT Rule Out COVID-19 11/20/2024 11/20/2024 Assessment Noted Time PHQ-9 Depression Total Score: 3 02/07/20 24 9:33 AM CDT documented as of this encounter Care Teams Metal Or Wood Blocker Relationship Specialty Start Date End Date Esha Grimm PA-C [address] [place] [phone] PCP - General Family Medicine 05/04/23 Diana Desir, [facility] [address] [place] [address] Pharmacist Pharmacist 04/17/21 Rain Galaviz PA-C [address] [place] [address] [address] [place] [address] Physician Tool Room Attendant Dermatology 04/28/21 Tavia Wyatt MD [address] [place] [address] [address] [place] [address] Dermatology 07/14/21 Erica Farrell APRN RAILROAD COMMISSIONER [address] [place], [place] 1827[address] Nurse Practitioner Cardiovascular Disease 09/09/21 Rich Barrett MD [address] [place], [place] 897735 Physician Ophthalmology 01/21/22 Neil Kent MD [address] [place], [place] 194545 Dermatology 02/24/22 Diana Desir, [facility] [address] [place], [place] 425596 Assigned [facility] Pharmacist 04/07/22 Livan Sharif MD [address] [place] [address] Cardiovascular Disease 05/14/22 Catherine Cm MD [address] [place] 900865 Cardiovascular Disease 07/21/22 Valery Veronica PAUcheC [address] [place] [address] 100825 Physician Tool Room Attendant Dermatology 07/21/22 Brea Quinn APRN RAILROAD COMMISSIONER 500 [place] [address] Nurse Practitioner Dermatology 09/21/22 Radha Lomeli APRN RAILROAD COMMISSIONER [address] [place] [address] Assigned Heart and Vascular Provider 05/28/23 Jelena David OD [address] [place] [address] MD Ophthalmology 06/15/23 Esha Grimm PA-C [address] [place] [phone] Assigned PCP 07/16/23 Valery Veronica PA-C [address] [place] [address] 491125 Physician Tool Room Attendant Dermatology 09/19/23 Rey Tay MD [address] [place] [address] [id number] MD Gastroenterology 09/20/23 Rocky Zepeda DO [address] [place] [address] 599165 Physician Gastroenterology 09/20/23 Philip Dumont MD [address] [place] [address] 858915 Physician Ophthalmology 09/22/23 Meredith Carrera PA-C [address] [place] [address] 156225 Assigned Gastroenterology Provider 11/01/23 Neil Kent MD [address] 834530 Dermatology 11/02/23 [place] [address] [place] [address] Neurological Surgery 12/26/23 Audrey Waite PA-C 500 [place] [address] Physician Tool Room Attendant Dermatology 02/28/24 Valery Veronica PA-C [address] [place] [address] Physician Tool Room Attendant Dermatology 04/10/24 Herminia Hatch MD [address] [place] [address] [id number] Assigned Rheumatology Provider 07/02/24 Jelena David OD [address] [place] [address] [place] [address] Ophthalmology 08/30/24 [place] [address] [place] [address] Assigned Neuroscience Provider 09/30/24 Maru Man PA-C [address] [place] [address] Physician Tool Room Attendant Dermatology 10/03/24 Maru Man PA-C [address] [place] [address] Physician Tool Room Attendant Dermatology 10/22/24 Jelena David OD [address] [address] [place] [address] Assigned Surgical Provider 10/31/24 documented as of this encounter
--- OUTSIDE RECORDS SUMMARY | 2024-11-21 04:22 | XMS_ITS | Encounter Summary ---
Author Organization [place] Address [address] [place] [address] Care Team Providers Care Scarifier Operator Name Role Phone Diana Desir Stanislav [facility] Unavailable Rain Galaviz PA-C Unavailable Tavia Wyatt MD Unavailable Erica Farrell APRN EMAIL DESIGNER Unavailable Rich Barrett MD Unavailable [phone] Neil Kent MD Unavailable ThangKendrickDiana Stanislav [facility] Unavailable [phone] Livan Sharif MD Unavailable Catherine Cm MD Unavailable + Valery Veronica-C Unavailable [phone] Brea Quinn CANNON CREWMEMBER EMAIL DESIGNER Unavailable Ehsa Grimm PA-C Primary Care Provider [phone] Radha Lomeli APRN EMAIL DESIGNER Unavailable Jelena David OD Unavailable [phone] Esha Grimm PA-C Unavailable [phone] Valery Veronica PA-C Unavailable Rey Tay MD Unavailable DuaneRocky Unavailable Philip Dumont MD Unavailable [phone] Meredith Carrera PA-C Unavailable [phone] Neil Kent MD Unavailable Juan Pablo Emmanuel MD Unavailable Audrey Waite PA-C Unavailable [phone] Valery Veronica PA-C Unavailable Herminia Hatch MD Unavailable Jelena David OD Unavailable Juan Pablo Emmanuel MD Unavailable Maru Man-C Unavailable [phone] Reason for Visit * Reason Onset Date Comments Refill Request 10/18/2024 Triamcinolone Ac etonide 0.1% ointment Encounter Details Date Type Department Care Team (Late st Contact Info) Description 10/18/[address] [address] Brea Quinn APRN [address] [address] Refill Request (Triamcinolone Acetonide 0.1% ointment) Social [...] exercise at this level? 20 min 05/07/2024 [place] Depression Scale Answer Date Recorded [place] Depression Score 5 01/14/2021 Last EPDS Self [...] CDT Legal Sex Female 4:13 AM MANAGER FLOOR Gender Identity Female 03/02/2021 5:45 PM CDT [...] Man PA-C) 10/22/2024 Antonella Kidd RN BSN [facility] Dermatology [phone] * Telephone Encounter - Erum Mcginnis LPN [...] PM) Provider Visit with Esha Grimm PA-C [facility] [address] [place] [phone] Requested Prescriptions Pending Prescriptions Disp Refills [...] Description 11/21/2024 7:00 AM CDT Office Visit [address] [phone] Maru Man PA-C [address] [place] [address] 12/20/2024 2:30 PM CDT Office Visit [address] [address] Esha Grimm PA-C [address] [place] [phone] 04/16/2025 11:00 AM CDT Virtual Visit [facility] [place] [address] [facility] [address] 4th [place] [phone] Meredith Carrera PA-C [address] [place] [address] documented as of this encounter Visit Diagnoses Diagnosis Psoriasis Other psoriasis documented in this encounter Additional Health Concerns Assessment Noted Time PHQ-9 Depression Total Score: 3 02/07/20 24 9:33 AM CDT documented as of this encounter Care Teams Scarifier Operator Relationship Specialty Start Date End Date Esha Grimm PA-C [address] [place] [phone] PCP - General Family Medicine 05/04/23 Diana Desir, [facility] [address] [place] [address] Pharmacist Pharmacist 04/17/21 Rain Galaviz PA-C [address] [place] [address] [address] [place] [address] Physician Traffic Recorder Dermatology 04/28/21 Tavia Wyatt MD [address] [place] [address] [address] [place] [address] Dermatology 07/14/21 Erica Farrell APRN EMAIL DESIGNER [address] [place] 795975 Nurse Practitioner Cardiovascular Disease 09/09/21 Rich Barrett MD [address] [place] [address] Physician Ophthalmology 01/21/22 Neil Kent MD 500 [place], [place] 357995 Dermatology 02/24/22 Diana Desir, [facility] [address] [place], [place] 414476 Assigned [facility] Pharmacist 04/07/22 Livan Sharif MD [address] [place] 301685 Cardiovascular Disease 05/14/22 Catherine Cm MD [address] [place] [address] Cardiovascular Disease 07/21/22 Valery Veronica, PA-C [address] [place], [place] 525955 Physician Traffic Recorder Dermatology 07/21/22 Brea Quinn APRN EMAIL DESIGNER 500 [place] [address] Nurse Practitioner Dermatology 09/21/22 Radha Lomeli APRN EMAIL DESIGNER [address] [place] 405525 Assigned Heart and Vascular Provider 05/28/23 Jelena David OD [address] [facility] [address] MD Ophthalmology 06/15/23 Esha Grimm PA-C [address] [place] [address]-947083 Assigned PCP 07/16/23 Valery Veronica PA-C [address] [place] [address] 568815 Physician Traffic Recorder Dermatology 09/19/23 Rey Tay MD [address] [place] [address] MD Gastroenterology 09/20/23 Rocky Zepeda DO [address] [place] [address] 771945 Physician Gastroenterology 09/20/23 Philip Dumont MD [address] [place] [address] 355075 Physician Ophthalmology 09/22/23 Meredith Carrera PA-C [address] [place] [address] 476065 Assigned Gastroenterology Provider 11/01/23 Neil Kent MD [address] [address] Dermatology 11/02/23 [place] [address] [place], [place] 485077 Neurological Surgery 12/26/23 Audrey Waite PA-C [address] [place] [address] 480095 Physician Traffic Recorder Dermatology 02/28/24 Valery Veronica PA-C [address]161 [address] [place] [address] Physician Traffic Recorder Dermatology 04/10/24 Herminia Hatch MD [facility] [place], [place] 32469125 Assigned Rheumatology Provider 07/02/24 Jelena David OD [address] [facility] [address] Ophthalmology 08/30/24 [place] [address] [place] 383077 Assigned Neuroscience Provider 09/30/24 Maru Man PA-C [address] [place] [address] Physician Traffic Recorder Dermatology 10/03/24 documented as of this encounter
--- OUTSIDE RECORDS SUMMARY | 2024-11-21 04:22 | XMS_ITS | Encounter Summary ---
Author Organization [place] Address [address] [place] [address] Care Team Providers Care Supervisor Sound Technician Name Role Phone Diana Desir [facility] Unavailable [phone] Rain Galaviz PA-C Unavailable Tavia Wyatt MD Unavailable Erica Farrlel APRN REPAIR ORDER CLERK Unavailable Rich Barrett MD Unavailable [phone] Neil Kent MD Unavailable Diana Desir [facility] Unavailable Livan Sharif MD Unavailable Catherine Cm MD Unavailable + Valery Veronica PA-C Unavailable Brea Quinn PLUCK TRIMMER REPAIR ORDER CLERK Unavailable Brea Quinn PLUCK TRIMMER REPAIR ORDER CLERK Unavailable Jose Francisco Johnson MD Unavailable Alfonso Renteria MD Unavailable [phone] Esha Grimm PA-C Primary Care Provider Radha Lomeli APRN REPAIR ORDER CLERK Unavailable Jelena David OD Unavailable Pao Joseph RN Unavailable Unavailable Esha Grimm Adam PA-C Unavailable [phone] Valery Veronica PA-C Unavailable [phone] Rey Tay MD Unavailable Duane Rockyanne [facility] Unavailable Philip Dumont MD Unavailable [phone] Meredith aCrrera PA-C Unavailable [phone] Neil Kent MD Unavailable Juan Pablo Emmanuel MD Unavailable [phone] Audrey Waite PA-C Unavailable [phone] JeremíasValery damon PA-C Unavailable Herminia Hatch MD Unavailable Jelena David OD Unavailable Juan Pablo Emmanuel MD Unavailable [phone] Maru Man PA-C Unavailable [phone] Maru Man PA-C Unavailable [phone] Jelena David OD Unavailable Encounter Details Date Type Department Care Team (Late st Contact Info) Description 08/11/2023 [facility] Medical Advice [address] [address] Pao Joseph, RN Social History [...] 0 06/20/2023 [facility] [...] exercise at this level? 30 min 03/10/2023 [place] Depression Scale Answer Date Recorded [place] Depression Score 5 01/14/2021 Last EPDS Self [...] PM CDT Legal Sex Female 4:13 AM FLOUR WORKER Gender Identity Female 03/02/2021 5:45 PM CDT Sexual Orientation Straight 02/28/2020 12 :51 AM CDT documented as of this encounter Plan of Treatment Upcoming Encounters Date Type Department Care Team (Late st Contact Info) Description 11/21/2024 7:00 AM CDT Office Visit [facility] [address] [phone] aMru Man PA-C [address] [address] 12/20/2024 2:30 PM CDT Office Visit [place] [phone] [place] [phone] Esha Grimm PA-C [address] [place] [address] 04/16/2025 11:00 AM CDT Virtual Visit [facility] Gastroenterology Clinic [address] 4th [place] [phone] Meredith Carrera PA-C [address] [place] [address] 168595 documented as of this encounter Visit Diagnoses [...] Total Score: 4 06/20/20 23 8:40 AM FLOUR WORKER documented as of this encounter Care Teams Supervisor Sound Technician Relationship Specialty Start Date End Date Esha Grimm PA-C [address] [place] [address] PCP - General Family Medicine 05/04/23 Diana Desir, [facility] [address] [facility] [place] [address] Pharmacist Pharmacist 04/17/21 Rain Galaviz PA-C [address] [place] [address] [facility] [place] [phone] Physician Counter Attendant Dermatology 04/28/21 Tavia Wyatt MD [address] [place] [address] [place] [address] Dermatology 07/14/21 Erica Farrell APRN REPAIR ORDER CLERK [address] [place] [address] Nurse Practitioner Cardiovascular Disease 09/09/21 Rich Barrett MD [address] [place] 964[address] Physician Ophthalmology 01/21/22 Neil Kent MD [address] [place] [address] Dermatology 02/24/22 [facility] [address] [place] [address] Assigned [place] Pharmacist 04/07/22 Livan Sharif MD [address] [facility] [place] [address] Cardiovascular Disease 05/14/22 Catherine Cm MD [address] [place] [address] [place] 7754[address] Cardiovascular Disease 07/21/22 Valery Veronica, PA-C [address] [place] [address] 989305 Physician Counter Attendant Dermatology 07/21/22 Brea Quinn APRN REPAIR ORDER CLERK 500 [place], [place] 187775 Nurse Practitioner Dermatology 09/21/22 Brea Quinn APRN REPAIR ORDER CLERK 6401 [place] [address] Assigned Surgical Provider 10/09/22 05/01/24 [place] [address] [address] [facility] 300 [place] [address] Assigned Musculoskeletal Provider 10/09/22 05/01/24 Alfonso Renteria MD [address] [facility] 200 [place], [place] 821096 Assigned Neuroscience Provider 04/02/23 09/29/24 Radha Lomeli APRN REPAIR ORDER CLERK [address] [place] [id number] [place] [address] Assigned Heart and Vascular Provider 05/28/23 Jelena David OD [address] [facility] [place] [address] Ophthalmology 06/15/23 Pao Joseph, VJ Personal Advocate & Liaison (PAL) Nurse 08/01/23 11/07/23 Esha Grimm PA-C [address] [place] [address]415683 Assigned PCP 07/16/23 Valery Veronica PA-C [address] [place] [address] Physician Counter Attendant Dermatology 09/19/23 Rey Tay MD [address] [place] [address] MD Gastroenterology 09/20/23 Rocky Zepeda DO [address] [place] [address] Physician Gastroenterology 09/20/23 Philip Dumont MD [address] [place] [address] Physician Ophthalmology 09/22/23 Meredith Carrera PA-C [address] [place] [address] Assigned Gastroenterology Provider 11/01/23 Neil Kent MD [address] [address] Dermatology 11/02/23 [place] [address] 885217 Neurological Surgery 12/26/23 Audrey Waite PA-C [address] [place] [address] Physician Counter Attendant Dermatology 02/28/24 Valery Veronica PA-C 753740 [place], [place] [address] Physician Counter Attendant Dermatology 04/10/24 Herminia Hatch MD [facility]5 [place] [address] Assigned Rheumatology Provider 07/02/24 Jelena David OD [facility] [place] [address] Ophthalmology 08/30/24 [place] [address] [place] [address] Assigned Neuroscience Provider 09/30/24 Maru Man PA-C [address] [place] [address] Physician Counter Attendant Dermatology 10/03/24 Maru Man PA-C [address] [place] [address] Physician Counter Attendant Dermatology 10/22/24 Jelena David OD [facility] [place] [address] Assigned Surgical Provider 10/31/24 documented as of this encounter
--- OUTSIDE RECORDS SUMMARY | 2024-11-21 04:22 | XMS_ITS | Encounter Summary ---
Author Organization [place] Address [address] [place] [address] Care Team Providers Care Director Of Managed Services Name Role Phone Diana Desir Stanislav [facility] Unavailable Rain Galaviz PA-C Unavailable Tavia Wyatt MD Unavailable Erica Farrell APRN SERVICE SPECIALIST Unavailable Rich Barrett MD Unavailable [phone] Neil Kent MD Unavailable ThangKendrickDiana Stanislav [facility] Unavailable [phone] Livan Sharif MD Unavailable Catherine Cm MD Unavailable + Valery Veronica-C Unavailable Brea Quinn RN SECURITY SERVICE SPECIALIST Unavailable Esha Grimm PA-C Primary Care Provider Radha Lomeli APRN SERVICE SPECIALIST Unavailable Jelena David OD Unavailable Esha Grimm PA-C Unavailable [phone] Valery Veronica PA-C Unavailable Rey Tay MD Unavailable Duane Rocky Unavailable Philip Dumont MD Unavailable [phone] Meredith Carrera-C Unavailable [phone] Neil Kent MD Unavailable Juan Pablo Emmanuel MD Unavailable Audrey Waite-C Unavailable [phone] Valery Veronica-C Unavailable [phone] Herminia Hatch MD Unavailable Jelena David OD Unavailable Juna Pablo Emmanuel MD Unavailable Maru ManC Unavailable [phone] Reason for Visit * Reason Comments Medication Refill Encounter Details Date Type Department Care Team (Late st Contact Info) Description 10/17/[address] [address] Esha Grimm PA-C [id number] [place] [address] Medication Refill Social History Tobacco Use [...] 02/07/2024 [facility], [...] exercise at this level? 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 DEVELOPMENTAL Gender Identity Female 03/02/2021 5:45 PM CDT Sexual Orientation Straight 02/28/2020 12 :51 AM CDT documented as of this encounter Plan of Treatment Upcoming Encounters Date Type Department Care Team (Late st Contact Info) Description 11/21/2024 7:00 AM CDT Office Visit [facility] [address] [phone] Maru Man PA-C [address] [address] 12/20/2024 2:30 PM CDT Office Visit [facility] [address] [place] [address] Esha Grimm PA-C [address] [place] [phone] 04/16/2025 11:00 AM CDT Virtual Visit [facility] [address] 4th [place] [phone] Meredith Carrera PA-C [address] [place] [address] documented as of this encounter Visit Diagnoses Diagnosis Anxiety Anxiety state, unspecified documented in this encounter Additional Health Concerns Assessment Noted Time PHQ-9 Depression Total Score: 3 02/07/20 24 9:33 AM CDT documented as of this encounter Care Teams Director Of Managed Services Relationship Specialty Start Date End Date Esha Grimm PA-C [address] [place] [phone] PCP - General Family Medicine 05/04/23 Diana Desir, [facility] [address] [place], [place] [phone] Pharmacist Pharmacist 04/17/21 Rain Galaviz PA-C [address] [place] [address] [address] [place] [address] Physician Electrical Engineering Technologist Dermatology 04/28/21 Tavia Wyatt MD [address] [place] [address] [address] [place] [address] Dermatology 07/14/21 Erica Farrell APRN SERVICE SPECIALIST [address] [facility] [address] [place] 310355 Nurse Practitioner Cardiovascular Disease 09/09/21 Rich Barrett MD [address] [place] [address] Physician Ophthalmology 01/21/22 Neil Kent MD 500 [place], [place] 015145 MD Dermatology 02/24/22 Diana Desir, [facility] [address] [place], [place] 169766 Assigned MTM Pharmacist 04/07/22 Livan Sharif MD [address] [place] [address] Cardiovascular Disease 05/14/22 Catherine Cm MD [address] [place] 6[address]65 Cardiovascular Disease 07/21/22 Valery Veronica, PAUcheC 909 [place], [place] [address] Physician Electrical Engineering Technologist Dermatology 07/21/22 Brea Quinn APRN SERVICE SPECIALIST 500 [place], [place] 300615 Nurse Practitioner Dermatology 09/21/22 Radha Lomeli APRN SERVICE SPECIALIST [address] [place] 7[address]25 Assigned Heart and Vascular Provider 05/28/23 Jelena David OD [address] [facility] [place] [address] MD Ophthalmology 06/15/23 Esha Grimm PA-C [address] [place] [address]83 Assigned PCP 07/16/23 Valery Veronica PA-C [address] [place] [address] Physician Electrical Engineering Technologist Dermatology 09/19/23 Rey Tay MD [address] [place] [address] Gastroenterology 09/20/23 Rocky Zepeda DO [address] [place] [address] 804635 Physician Gastroenterology 09/20/23 Philip Dumont MD [address] [place] [address] Physician Ophthalmology 09/22/23 Meredith Carrera PA-C [address] [place] [address] Assigned Gastroenterology Provider 11/01/23 Neil Kent MD [address] [place] [address] 594970 Dermatology 11/02/23 [place] [address] [place] [address] Neurological Surgery 12/26/23 Audrey [place] PA-C 500 [place] [address] Physician Electrical Engineering Technologist Dermatology 02/28/24 Valery Veronica PA-C [id number] [place] [address] Physician Electrical Engineering Technologist Dermatology 04/10/24 Herminia Hatch MD [address] [place], [place] 84169125 Assigned Rheumatology Provider 07/02/24 Jelena David OD [address] [facility] [place] [address] Ophthalmology 08/30/24 [place] [address] [place] [address] Assigned Neuroscience Provider 09/30/24 Maru Man PA-C [address] [address] Physician Electrical Engineering Technologist Dermatology 10/03/24 documented as of this encounter
--- OUTSIDE RECORDS SUMMARY | 2024-11-21 04:22 | XMS_ITS | Encounter Summary ---
Author Organization [place] Address [address] [place] [address] Care Team Providers Care Assembly Line Machine Operator Name Role Phone Diana Desir Stanislav [facility] Unavailable Rain Galaviz PA-C Unavailable Tavia Wyatt MD Unavailable Erica Farrell APRN SERVICENOW ADMINISTRATOR Unavailable Rich Barrett MD Unavailable [phone] Neil Kent MD Unavailable ThangKendrickDiana Stanislav [facility] Unavailable [phone] Livan Sharif MD Unavailable Catherine Cm MD Unavailable + Valery Veronica-C Unavailable Brea Quinn SAND SLINGER OPERATOR SERVICENOW ADMINISTRATOR Unavailable Esha Grimm PA-C Primary Care Provider Radha Lomeli APRN SERVICENOW ADMINISTRATOR Unavailable Jelena David OD Unavailable Esha Grimm PA-C Unavailable [phone] Valery Veronica PA-C Unavailable Rey Tay MD Unavailable ZepedaRocky Unavailable Philip Dumont MD Unavailable [phone] DebiMeredith PA-C Unavailable Neil Kent MD Unavailable Juan Pablo Emmanuel MD Unavailable Audrey Waite PA-C Unavailable Valery Veronica PA-C Unavailable Herminia Hatch MD Unavailable Jelena David OD Unavailable Juan Pablo Emmanuel MD Unavailable [phone] Maru Man PA-C Unavailable Maru Man PA-C Unavailable Jelena David OD Unavailable Reason for Visit * Reason Onset Date Comments Call Back 10/09/2024 Heart Monitor Encounter Details Date Type Department Care Team (Late st Contact Info) Description 10/09/2024 Telephone [facility] [address] [facility] [address] [place] [address] Livan Sharif MD [address] [facility] [address] [place] [address] Call Back (Heart Monitor) Social [...] Date Recorded PHQ-2 Score 1 02/07/2024 [facility] - Occupational Stress [...] exercise at this level? 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 Carley Medina [facility] * Telephone Encounter - [...] can certainly offer. Thanks! Rodrigo Correa APRN, SERVICENOW ADMINISTRATOR * Telephone Encounter - Mary Stapleton - 10/09/2024 1:57 PM CDT [facility] Call Center Phone Message May a [...] Visit [facility] [address] [phone] Maru Man PA-C [address] 725720 12/20/2024 2:30 PM CDT Office Visit [address] [address] Esha Grimm PA-C [address] [place] [phone] 04/16/2025 11:00 AM CDT Virtual Visit [facility] [address] 4th [place] [phone] Meredith Carrera PA-C [address] [place] [address] 208685 documented as of this encounter Visit Diagnoses Not on filedocumented in this encounter Additional Health Concerns Infection Onset Date Last Indicated Resolved Time Rule Out COVID-19 11/20/2024 11/20/2024 Assessment Noted Time PHQ-9 Depression Total Score: 3 02/07/20 24 9:33 AM CDT documented as of this encounter Care Teams Assembly Line Machine Operator Relationship Specialty Start Date End Date Esha Grimm PA-C [address] [place] [phone] PCP - General Family Medicine 05/04/23 Diana Desir, [facility] 3033 [place], [place] 250546 Pharmacist Pharmacist 04/17/21 Rain Galaviz PA-C [address] [place] [address] [place] [address] Physician Cane Piler Dermatology 04/28/21 Tavia Wyatt MD [address] [place] [address] [place] [address] Dermatology 07/14/21 Erica Farrell APRN SERVICENOW ADMINISTRATOR [address] [place] [address] [place] [address] Nurse Practitioner Cardiovascular Disease 09/09/21 Rich Barrett MD [address] [place] 455225 Physician Ophthalmology 01/21/22 Neil Kent MD 500 [place], [place] 734505 Dermatology 02/24/22 Diana Desir, [facility] 30[address] [place], [place] [address]626 Assigned [facility] Pharmacist 04/07/22 Livan Sharif MD [address] [address] [address] Cardiovascular Disease 05/14/22 Catherine Cm MD [address] [place] [address] Cardiovascular Disease 07/21/22 Valery Veronica, PA-C [address] [place] [address] 376725 Physician Cane Piler Dermatology 07/21/22 Brea Quinn APRN SERVICENOW ADMINISTRATOR 500 [place], [place] 703605 Nurse Practitioner Dermatology 09/21/22 Radha Lomeli APRN SERVICENOW ADMINISTRATOR [address] [place], [place] 289965 Assigned Heart and Vascular Provider 05/28/23 Frankie Jelena Garcia, SONJA [address] [facility] [place] [address] MD Ophthalmology 06/15/23 Esha Grimm PA-C [address] [place] [phone] Assigned PCP 07/16/23 Valery Veronica PA-C [address] [place] [address] 555065 Physician Cane Piler Dermatology 09/19/23 Rey Tay MD [address] [place] [address] 609495 MD Gastroenterology 09/20/23 Rocky Zepeda DO [address] [place] [address] 347915 Physician Gastroenterology 09/20/23 Philip Dumont MD [address] [place] [address] 790565 Physician Ophthalmology 09/22/23 Meredith Carrera PA-C [address] [place] [address] Assigned Gastroenterology Provider 11/01/23 Neil Kent MD [address] [address] Dermatology 11/02/23 [place] [address] [place] [address] Neurological Surgery 12/26/23 Audrey [place] PA-C 500 [place] [address] Physician Cane Piler Dermatology 02/28/24 Valery Veronica PA-C 8[address]29 [address] [place] [address] Physician Cane Piler Dermatology 04/10/24 Herminia Hatch MD [address] [place] [address] Assigned Rheumatology Provider 07/02/24 Jelena David OD [address] [place] [address] [place] [address] Ophthalmology 08/30/24 [place] [address] [place] [address] Assigned Neuroscience Provider 09/30/24 Maru Man PA-C [address] [place] [address] Physician Cane Piler Dermatology 10/03/24 Maru Man PA-C [address] [place] [address] Physician Cane Piler Dermatology 10/22/24 Jelena David OD [address] [place] [address] [place] [address] (work) Assigned Surgical Provider 10/31/24 documented as of this encounter
--- OUTSIDE RECORDS SUMMARY | 2024-11-21 04:22 | XMS_ITS | Encounter Summary ---
Author Organization [facility] Address [address] [place] [address] Care Team Providers Care Woods Laborer Name Role Phone Diana Desir [facility] Unavailable Rain Galaviz PA-C Unavailable [phone] Tavia Wyatt MD Unavailable [phone] Ercia Farrell APRN DOMESTIC MAID Unavailable Rich Barrett MD Unavailable [phone] Neil Kent MD Unavailable Diana Desir [facility] Unavailable Livan Sharif MD Unavailable Catherine Cm MD Unavailable + Valery Veronica PA-C Unavailable Brea Quinn YARD COORDINATOR DOMESTIC MAID Unavailable Brea Quinn YARD COORDINATOR DOMESTIC MAID Unavailable [phone] Jose Francisco Johnson MD Unavailable Sydnie Martinez RN Unavailable Unavailable Alfonso Renteria MD Unavailable [phone] Esha Grimm PA-C Primary Care Provider [phone] Radha Lomeli APRN DOMESTIC MAID Unavailable Jelena David OD Unavailable Pao Joseph RN Unavailable Unavailable Esha Grimm PA-C Unavailable [phone] Valery Veronica PA-C Unavailable Rey Tay [...] Team (Late st Contact Info) Description 07/27/2023 [facility] [address] [address] Diana Desir, [facility] [address] [place], [place] [phone] Social History Tobacco Use Types Packs/Day Years [...] attend [facility] or [facility]? 1 to 4 [...] exercise at this level? 30 min 03/10/2023 [place] Depression Scale Answer Date Recorded [place] Depression Score 5 01/14/2021 Last EPDS Self [...] PM CDT Legal Sex Female 4:13 AM BARREL REAMER Gender Identity Female 03/02/2021 5:45 PM CDT Sexual Orientation Straight 02/28/2020 12 :51 AM CDT documented as of this encounter Plan of Treatment Upcoming Encounters Date Type Department Care Team ([facility] st Contact Info) Description 11/21/2024 7:00 AM CDT Office Visit [facility] [address] [phone] Maru Man PA-C [address] [address] 12/20/2024 2:30 PM CDT Office Visit [facility] [address] [place] [address] Esha Grimm PA-C [address] [place] [address] 04/16/2025 11:00 AM CDT Virtual Visit [facility] [address] 4th [place] [address] Meredith Carrera PA-C [address] [place] [address] documented as of this encounter Visit Diagnoses [...] Total Score: 4 06/20/20 23 8:40 AM BARREL REAMER documented as of this encounter Care Teams Woods Laborer Relationship Specialty Start Date End Date Esha Grimm PA-C [id number] [place] [address] PCP - General Family Medicine 05/04/23 Diana Desir [facility] [address] [place] [address] Pharmacist Pharmacist 04/17/21 Rain Galaviz PA-C [address] [place] [address] [address] [place] [address] Physician Forest Biometrics Professor Dermatology 04/28/21 Tavia Wyatt MD [address] [place] [address] [place] [address] Dermatology 07/14/21 Erica Farrell APRN DOMESTIC MAID [address] [place] 008695 Nurse Practitioner Cardiovascular Disease 09/09/21 Rich Barrett MD [address] [place] 461145 Physician Ophthalmology 01/21/22 Neil Kent MD 500 [place], [place] 883015 Dermatology 02/24/22 Diana Desir, [facility] 30[address] [place], [place] 741076 Assigned MTM Pharmacist 04/07/22 Livan Sharif MD [address] [place] [address] Cardiovascular Disease 05/14/22 Catherine Cm MD [address] [place] [address] Cardiovascular Disease 07/21/22 Valery Veronica PA-C 909 [place] [address] Physician Forest Biometrics Professor Dermatology 07/21/22 Brea Quinn APRN DOMESTIC MAID 500 [place] [address] Nurse Practitioner Dermatology 09/21/22 Brea Quinn APRN DOMESTIC MAID 6401 [place], [place] 539192 Assigned Surgical Provider 10/09/22 05/01/24 [place] [address] [address] Assigned Musculoskeletal Provider 10/09/22 05/01/24 Sydnie Martinez RN Personal Advocate & Liaison (PAL) Family Medicine 03/28/23 07/31/23 Alfonso Renteria MD 5775 [facility] 200 [place], [place] 231866 Assigned Neuroscience Provider 04/02/23 09/29/24 Radha Lomeli APRN DOMESTIC MAID [address] [facility] [address] [place] [address] Assigned Heart and Vascular Provider 05/28/23 Jelena David OD [address] [place] [address] Ophthalmology 06/15/23 Pao Joseph, VJ Personal Advocate & Liaison (PAL) Nurse 08/01/23 11/07/23 Esha Grimm PA-C [address] [place] [address] Assigned PCP 07/16/23 Valery Veronica PA-C [address] [place] [address] 758585 Physician Forest Biometrics Professor Dermatology 09/19/23 Rey Tay MD [address] [place] [address] MD Gastroenterology 09/20/23 Rocky Zepeda DO [address] [place] [address] 993815 Physician Gastroenterology 09/20/23 Philip Dumont MD [address] [place] [address] Physician Ophthalmology 09/22/23 Meredith Carrera PA-C [address] [place] [address] Assigned Gastroenterology Provider 11/01/23 Neil Kent MD [address] [address] Dermatology 11/02/23 [place] [address] [place] [address] Neurological Surgery 12/26/23 Audrey Waite PA-C [address] [place] [address] 374445 Physician Forest Biometrics Professor Dermatology 02/28/24 Valery Veronica PA-C [id number] [address] [place] [address] Physician Forest Biometrics Professor Dermatology 04/10/24 Herminia Hatch MD [address] [place] [address] Assigned Rheumatology Provider 07/02/24 Jelena David OD [address] [place] [address] [place] K[place] [address] Ophthalmology 08/30/24 [place] [address] [place] [address] Assigned Neuroscience Provider 09/30/24 Maru Man PA-C [address] [place] [address] Physician Forest Biometrics Professor Dermatology 10/03/24 Maru Man PA-C [address] [place] [address] Physician Forest Biometrics Professor Dermatology 10/22/24 Jelena David OD [facility] [facility] [place] [address] Assigned Surgical Provider 10/31/24 documented as of this encounter
--- OUTSIDE RECORDS SUMMARY | 2024-11-21 04:22 | XMS_ITS | Encounter Summary ---
Author Organization [place] Address [address] [place] [address] Care Team Providers Care Surveillance Operator Name Role Phone Diana Desir [facility] Unavailable [phone] Rain Galaviz PA-C Unavailable Tavia Wyatt MD Unavailable [phone] Erica Farrell APRN SUPERVISOR ASSEMBLY ROOM Unavailable Rich Barrett MD Unavailable [phone] Neil Kent MD Unavailable Diana Desir [facility] Unavailable Livan Sharif MD Unavailable Catherine Cm MD Unavailable + Valery Veronica PA-C Unavailable Brea Quinn PRICING DIRECTOR SUPERVISOR ASSEMBLY ROOM Unavailable Brea Quinn PRICING DIRECTOR SUPERVISOR ASSEMBLY ROOM Unavailable Jose Francisco Johnson MD Unavailable Sydnie Martinez RN Unavailable Unavailable Alfnoso Renteria MD Unavailable [phone] Esha Grimm PA-C Primary Care Provider Radha Lomeli APRN SUPERVISOR ASSEMBLY ROOM Unavailable Jelena David OD Unavailable [phone] Pao Joseph RN Unavailable Unavailable Esha Grimm Adam PA-C Unavailable [phone] Valery Veronica PA-C Unavailable Rey Tay [...] Team (Late st Contact Info) Description 07/29/2023 [facility] [address] [address] Pao Joseph, RN Social History [...] exercise at this level? 30 min 03/10/2023 [place] Depression Scale Answer Date Recorded [place] Depression Score 5 01/14/2021 Last EPDS Self [...] CDT Legal Sex Female 4:13 AM MANAGER APPLICATION Gender Identity Female 03/02/2021 5:45 PM CDT Sexual Orientation Straight 02/28/2020 12 :51 AM CDT documented as of this encounter Plan of Treatment Upcoming Encounters Date Type Department Care Team (Late st Contact Info) Description 11/21/2024 7:00 AM CDT Office Visit [facility] [address] [address] Maru Man PA-C [address] [address] 12/20/2024 2:30 PM CDT Office Visit [facility] [address] [place] [phone] Esha Grimm PA-C [address] [place] [phone] 04/16/2025 11:00 AM CDT Virtual Visit [facility] [address] 4th [place] [phone] Meredith Carrera PA-C [address] [place] [address] 305245 documented as of this encounter Visit Diagnoses [...] Score: 4 06/20/20 23 8:40 AM MANAGER APPLICATION documented as of this encounter Care Teams Surveillance Operator Relationship Specialty Start Date End Date Esha Grimm PA-C [address] [place] [phone] PCP - General Family Medicine 05/04/23 Diana Desir, [facility] [address] [facility] [address] Pharmacist Pharmacist 04/17/21 Rain Galaviz PA-C [address] [place] [address] [place] [address] Physician Tobacco Sprayer Dermatology 04/28/21 Tavia Wyatt MD [address] [place] [address] [address] [place] [address] Dermatology 07/14/21 Erica Farrell APRN SUPERVISOR ASSEMBLY ROOM [address] [place] [address] Nurse Practitioner Cardiovascular Disease 09/09/21 Rich Barrett MD [address] [place] 454305 Physician Ophthalmology 01/21/22 Neil Kent MD [address] [place] [address] 602795 Dermatology 02/24/22 [facility] [address] [place] [address] Assigned [facility] Pharmacist 04/07/22 Livan Sharif MD [address] [facility] [place] [address] Cardiovascular Disease 05/14/22 Catherine Cm MD [address] [facility] [place] 442695 Cardiovascular Disease 07/21/22 Valery Veronica, PA-C [address] [place] [address] 437345 Physician Tobacco Sprayer Dermatology 07/21/22 Brea Quinn APRN SUPERVISOR ASSEMBLY ROOM 500 [place], [place] 983375 Nurse Practitioner Dermatology 09/21/22 Brea Quinn APRN SUPERVISOR ASSEMBLY ROOM 6401 [place] [address] Assigned Surgical Provider 10/09/22 05/01/24 [place] [address] [place] [facility] 300 [place] [address] Assigned Musculoskeletal Provider 10/09/22 05/01/24 Sydnie Martinez RN Personal Advocate & Liaison (PAL) Family Medicine 03/28/23 07/31/23 Alfonso Renteria MD 5775 [facility] 200 [place], [place] 638826 Assigned Neuroscience Provider 04/02/23 09/29/24 Radha Lomeli APRN SUPERVISOR ASSEMBLY ROOM 6405 [facility] [address] [place] [address] Assigned Heart and Vascular Provider 05/28/23 Jelena David OD [address] [facility] [place] [address] Ophthalmology 06/15/23 Pao Joseph, VJ Personal Advocate & Liaison (PAL) Nurse 08/01/23 11/07/23 Esha Grimm, PA-C [address] [place] [phone] Assigned PCP 07/16/23 Valery Veronica PA-C 9 [place], [place] 698675 Physician Tobacco Sprayer Dermatology 09/19/23 Rey Tay MD [address] [place] [address] 127655 MD Gastroenterology 09/20/23 Rocky Zepeda DO [address] [place] [address] 490355 Physician Gastroenterology 09/20/23 Philip Dumont MD [address] [place] [address] 651065 Physician Ophthalmology 09/22/23 Meredith Carrera PA-C [address] [place] [address] 160215 Assigned Gastroenterology Provider 11/01/23 Neil Kent MD [address] [address] Dermatology 11/02/23 [place] [address] [address] Neurological Surgery 12/26/23 Audrey Waite PA-C [address] [place] [address] Physician Tobacco Sprayer Dermatology 02/28/24 Valery Veronica PA-C [address] [facility] [place] [address] Physician Tobacco Sprayer Dermatology 04/10/24 Herminia Hatch MD [facility]5 [place] [address] Assigned Rheumatology Provider 07/02/24 Jelena David OD [address] [place] [address] [place] [address] Ophthalmology 08/30/24 [place] [address] [place] [address] Assigned Neuroscience Provider 09/30/24 Maru Man PA-C [address] [place] [address] Physician Tobacco Sprayer Dermatology 10/03/24 Maru Man PA-C [address] [place] [address] Physician Tobacco Sprayer Dermatology 10/22/24 Jelena David OD [address] [place] [address] [place] [address] Assigned Surgical Provider 10/31/24 documented as of this encounter
--- OUTSIDE RECORDS SUMMARY | 2024-11-21 04:23 | XMS_ITS | Encounter Summary ---
Author Organization [place] Address [address] [place] [address] Care Team Providers Care Contact Lens Lathe Operator Name Role Phone Diana Desir [facility] Unavailable Rain Galaviz PA-C Unavailable Tavia Wyatt MD Unavailable Erica Farrell APRN EXTERNAL RELATIONS MANAGER Unavailable Rich Barrett MD Unavailable [phone] Neil Kent MD Unavailable Diana Desir [facility] Unavailable [phone] Livan Sharif MD Unavailable Catherine Cm MD Unavailable + Valery Veronica PA-C Unavailable Brea Quinn LANDSCAPE ARCHITECTURE TEACHER EXTERNAL RELATIONS MANAGER Unavailable Brea Quinn LANDSCAPE ARCHITECTURE TEACHER EXTERNAL RELATIONS MANAGER Unavailable Jose Francisco Johnson MD Unavailable Alfonso Renteria MD Unavailable [phone] Esha Grimm PA-C Primary Care Provider Radha Lomeli APRN EXTERNAL RELATIONS MANAGER Unavailable Jelena David OD Unavailable Pao Joseph RN Unavailable Unavailable Esha Grimm PA-C Unavailable [phone] Valery Veronica PA-C Unavailable Rey Tay MD Unavailable Rocky Zepeda DO Unavailable Philip Dumont MD Unavailable Meredith Carrera PA-C Unavailable Neil Kent MD Unavailable Juan Pablo Emmanuel MD Unavailable Audrey Waite PA-C Unavailable Valery Veronica PA-C Unavailable Herminia Hatch MD Unavailable Jelena David OD Unavailable Juan Pablo Emmanuel MD Unavailable Maru Man-C Unavailable Maru Man PA-C Unavailable Reason for Visit * Reason Onset Date Comments Call Back 08/01/2023 Encounter Details Date Type Department Care Team (Late st Contact Info) Description 08/01/[address] [facility] [address] [place] [address] Esha Grimm PA-C [address] [place] [address] Call Back Social History Tobacco [...] Answer Date Recorded PHQ-2 Score 1 10/24/2024 [facility]at [facility] [...] exercise at this level? 20 min 05/07/2024 [place] Depression Scale Answer Date Recorded [place] Depression Score 5 01/14/2021 Last EPDS Self [...] CDT Legal Sex Female 4:13 AM SYSTEM MANAGER Gender Identity Female 03/02/2021 5:45 PM [...] Grimm PA-C on 08/02/2023 at 7:49 AM EM MANAGER * Telephone Encounter - Debbie Shahid - [...] we send this information to you in [employer] or would you prefer to receive a phone call?: No preference Okay to leave a detailed message?: Yes at Home number on file [phone] (home) EM MANAGER documented in this encounter Plan of Treatment Upcoming Encounters Date Type Department Care Team (Late st Contact Info) Description 11/21/2024 7:00 AM CDT Office Visit [facility] [address] [phone] Maru Man PA-C [address] [place] [address] 12/20/2024 2:30 PM CDT Office Visit [facility] [address] [place] [address] Esha Grimm PA-C [address] [place] [address] 04/16/2025 11:00 AM CDT Virtual Visit [facility] [address]th [place] [address] Meredith Carrera PA-C [address] [place] [address] documented as of this encounter Visit Diagnoses Not on filedocumented in this encounter Additional Health Concerns Infection Onset Date Last Indicated Resolved Time Rule Out COVID-19 12/26/2023 12/26/2023 12/26/2023 9:50 AM CDT Rule Out COVID-19 04/09/2024 04/09/2024 04/10/2024 6:48 PM CDT Rule Out COVID-19 10/04/2024 10/04/2024 10/05/2024 9:42 AM CDT Assessment Noted Time PHQ-9 Depression Total Score: 4 06/20/20 23 8:40 AM SYSTEM MANAGER documented as of this encounter Care Teams Contact Lens Lathe Operator Relationship Specialty Start Date End Date Esha Grimm PA-C [address] [place] [address] PCP - General Family Medicine 05/04/23 Diana Desir, [facility] 3033 [place] [address] Pharmacist Pharmacist 04/17/21 Rain Galaviz PA-C [address] [place] [address] DR ARRIOLA PRAENMA BAER [address] Physician Director Financial Analysis Dermatology 04/28/21 Tavia Wyatt MD [address] [place] [address] DR RAZO Lara [place] [address] Dermatology 07/14/21 Erica Farrell APRN EXTERNAL RELATIONS MANAGER [address] [place] 448215 Nurse Practitioner Cardiovascular Disease 09/09/21 Rich Barrett MD [address] [place] 917015 Physician Ophthalmology 01/21/22 Neil Kent MD [address] [place] [address] 836265 Dermatology 02/24/22 [facility] [address] [place] [address] 721146 Assigned [facility] Pharmacist 04/07/22 Livan Sharif MD [address] [place] 075065 Cardiovascular Disease 05/14/22 Catherine Cm MD [address] [place] 700235 Cardiovascular Disease 07/21/22 Valery Veronica, PA-C [address] [place] [address] 694155 Physician Director Financial Analysis Dermatology 07/21/22 Brea Quinn APRN EXTERNAL RELATIONS MANAGER 500 [place] [address] Nurse Practitioner Dermatology 09/21/22 Brea Quinn APRN EXTERNAL RELATIONS MANAGER 6401 [place] [address] Assigned Surgical Provider 10/09/22 05/01/24 [place] [address] [place] [address] [address] Assigned Musculoskeletal Provider 10/09/22 05/01/24 Alfonso Renteria MD 5775 [facility] 200 [place], [place] 312406 Assigned Neuroscience Provider 04/02/23 09/29/24 Radha Lomeli APRN EXTERNAL RELATIONS MANAGER 6405 [facility] [address] [place] [address] Assigned Heart and Vascular Provider 05/28/23 Jelena David OD [address] [facility] [place] [address] Ophthalmology 06/15/23 Pao Joseph, VJ Personal Advocate & Liaison (PAL) Nurse 08/01/23 11/07/23 Esha Grimm PA-C [address] [place] [phone] Assigned PCP 07/16/23 Valery Veronica PA-C [address] [place] [address] Physician Director Financial Analysis Dermatology 09/19/23 Rey Tay MD [address] [place] [address] MD Gastroenterology 09/20/23 Rocky Zepeda DO [address] [place] [address] Physician Gastroenterology 09/20/23 Philip Dumont MD [address] [place] [address] Physician Ophthalmology 09/22/23 Meredith Carrera PA-C [address] [place] [address] Assigned Gastroenterology Provider 11/01/23 Neil Kent MD [address] [address] Dermatology 11/02/23 [place] [address] [place] [address] [address] Neurological Surgery 12/26/23 Audrey Waite PA-C [address] [place] [address] Physician Director Financial Analysis Dermatology 02/28/24 Valery Veronica PA-C [address] [place] [address] Physician Director Financial Analysis Dermatology 04/10/24 Herminia Hatch MD [facility]5 [place], [place] 54506125 Assigned Rheumatology Provider 07/02/24 Jelena David OD [address] [facility] [address] Ophthalmology 08/30/24 [place] [address] [place] [address] Assigned Neuroscience Provider 09/30/24 Maru aMn PA-C [address] [place] [address] Physician Director Financial Analysis Dermatology 10/03/24 Maru Man PA-C [address] [place] [address] Physician Director Financial Analysis Dermatology 10/22/24 documented as of this encounter
--- OUTSIDE RECORDS SUMMARY | 2024-11-21 04:23 | XMS_ITS | Encounter Summary ---
Author Organization [place] Address [address] [place] [address] Care Team Providers Care Road Design Engineer Name Role Phone Diana Desir [facility] Unavailable Rain Galaviz PA-C Unavailable Tavia Wyatt MD Unavailable Erica Farrell APRN BALANCE WHEEL SCREW HOLE TAPPER Unavailable Rich Barrett MD Unavailable [phone] Neil Kent MD Unavailable DesirDiana [facility] Unavailable Livan Sharif MD Unavailable Catherine Cm MD Unavailable + Valery Veronica PA-C Unavailable Brea Quinn APRN BALANCE WHEEL SCREW HOLE TAPPER Unavailable Brea Quinn LANDSCAPING MANAGER BALANCE WHEEL SCREW HOLE TAPPER Unavailable Jose Francisco Johnson MD Unavailable Sydnie Martinez RN Unavailable Unavailable Alfonso Renteria MD Unavailable [phone] Esha Grimm PA-C Primary Care Provider [phone] Cheng Todd PA-C Unavailable Radha Lomeli APRN BALANCE WHEEL SCREW HOLE TAPPER Unavailable Jelena David OD Unavailable [phone] Pao Joseph RN Unavailable Unavailable Esha Grimm PA-C Unavailable [phone] Valery Veronica PA-C Unavailable Rey Tay MD Unavailable Rocky Zepeda DO Unavailable Philip Dumont MD Unavailable Meredith Carrera PA-C Unavailable Neil Kent MD Unavailable Juan Pablo Emmanuel MD Unavailable Audrey Waite PA-C Unavailable JeremíasValery damon PA-C Unavailable Herminia Htach MD Unavailable Jelena David OD Unavailable Juan Pablo Emmanuel MD Unavailable Maru Man PA-C Unavailable Maru Man PA-C Unavailable Jelena David OD Unavailable Encounter Details Date Type Department Care Team (Late st Contact Info) Description 07/06/2023 [facility] [address] [place] [address] Esha Grimm PA-C [address] [place] [address] Social History Tobacco Use Types [...] do you attend [facility] or zoroastrian services? 1 to 4 [...] 0 06/20/2023 [facility]at [facility] [...] exercise at this level? 30 min 03/10/2023 [place] Depression Scale Answer Date Recorded [place] Depression Score 5 01/14/2021 Last EPDS Self [...] CDT Legal Sex Female 4:13 AM LUMBER MARKER Gender Identity Female 03/02/2021 5:45 PM CDT Sexual Orientation Straight 02/28/2020 12 :51 AM CDT documented as of this encounter Plan of Treatment Upcoming Encounters Date Type Department Care Team (Late st Contact Info) Description 11/21/2024 7:00 AM CDT Office Visit [address] [address] Maru Man PA-C [address] [place], [place] 563240 12/20/2024 2:30 PM CDT Office Visit [facility] [address] [place] [address] Esha Grimm PA-C [address] [place] [address] 04/16/2025 11:00 AM CDT Virtual Visit [facility] [address]th [place] [address] Meredith Carrera PA-C [address] [place] [address] 637915 documented as of this encounter Visit Diagnoses [...] Total Score: 4 06/20/20 23 8:40 AM LUMBER MARKER documented as of this encounter Care Teams Road Design Engineer Relationship Specialty Start Date End Date Esha Grimm PA-C [address] [place] [address] PCP - General Family Medicine 05/04/23 Diana Desir, [facility] 3033 [place], [place] 605766 Pharmacist Pharmacist 04/17/21 Rain Galaviz PA-C [address] [place] [address] DR [address] [place] [address] Physician Supervisor [employer] Dermatology 04/28/21 Tavia Wyatt MD [address] [place] [address] [place] [address] Dermatology 07/14/21 Erica Farrell APRN BALANCE WHEEL SCREW HOLE TAPPER [address] [place] 255225 Nurse Practitioner Cardiovascular Disease 09/09/21 Rich Barrett MD [address] [place] 302105 Physician Ophthalmology 01/21/22 Neil Kent MD 500 [place], [place] 455085 Dermatology 02/24/22 [facility] 3033 [place] [address] Assigned MTM Pharmacist 04/07/22 Livan Sharif MD [address] [place] 051265 Cardiovascular Disease 05/14/22 Catherine Cm MD [address] [place] 050255 Cardiovascular Disease 07/21/22 Valery Veronica PA-C 909 [place] [address] Physician Supervisor [employer] Dermatology 07/21/22 Brea Quinn APRN BALANCE WHEEL SCREW HOLE TAPPER [address] [place] [address] 723005 Nurse Practitioner Dermatology 09/21/22 Brea Quinn APRN BALANCE WHEEL SCREW HOLE TAPPER [address] [place] 060862 Assigned Surgical Provider 10/09/22 05/01/24 [place] [address] [facility] 300 [place] [address] Assigned Musculoskeletal Provider 10/09/22 05/01/24 Sydnie Martinez RN Personal Advocate & Liaison (PAL) Family Medicine 03/28/23 07/31/23 Alfonso Renteria MD 5775 [facility] 200 [place] [address] Assigned Neuroscience Provider 04/02/23 09/29/24 Cheng Todd PA-C [address] [place] [address] [id number] Assigned PCP 04/30/23 07/15/23 Radha Lomeli APRN BALANCE WHEEL SCREW HOLE TAPPER [address] [place] [address] Assigned Heart and Vascular Provider 05/28/23 Jelena David OD [address] [facility] [place] [address] MD Ophthalmology 06/15/23 Pao Joseph, RN Personal Advocate & Liaison (PAL) Nurse 08/01/23 11/07/23 Esha Grimm PA-C [address] [place] [phone] Assigned PCP 07/16/23 Valery Veronica PA-C [address] [place] [address] 531645 Physician Supervisor [employer] Dermatology 09/19/23 Rey Tay MD [address] [place] [address] 282555 MD Gastroenterology 09/20/23 Rocky Zepeda DO [address] [place] [address] 513315 Physician Gastroenterology 09/20/23 Philip Dumont MD [address] [place] [address] 688015 Physician Ophthalmology 09/22/23 Meredith Carrera PA-C [address] [place] [address] 826205 Assigned Gastroenterology Provider 11/01/23 Neil Kent MD [address] [address] Dermatology 11/02/23 [place] [address] [place] [address] Neurological Surgery 12/26/23 Audrey Waite PA-C 500 [place] [address] Physician Supervisor [employer] Dermatology 02/28/24 Valery Veronica PA-C [address] [place] [address] Physician Supervisor [employer] Dermatology 04/10/24 Herminia Hatch MD [address] [place] [address] [id number] Assigned Rheumatology Provider 07/02/24 Jelena David, SONJA [address] [place] [address] [place] [address] Ophthalmology 08/30/24 [place] [address] [place] [address] Assigned Neuroscience Provider 09/30/24 Maru Man PA-C [address] [place] [address] Physician Supervisor [employer] Dermatology 10/03/24 Maru Man PA-C [address] [place] [address] Physician Supervisor [employer] Dermatology 10/22/24 Jelena David OD [address] [place] [address] [place] [address] Assigned Surgical Provider 10/31/24 documented as of this encounter
--- OUTSIDE RECORDS SUMMARY | 2024-11-21 04:23 | XMS_ITS | Encounter Summary ---
Author Organization [place] Address [address] [place] [address] Care Team Providers Care Bill Peddler Name Role Phone Diana Desir [facility] Unavailable Rain GalavizC Unavailable Tavia Wyatt MD Unavailable Erica Farrell APRN DATA KEYER Unavailable Rich Barrett MD Unavailable [phone] Neil Kent MD Unavailable DesirKendrickDiana Stanislav [facility] Unavailable [phone] Livan Sharif MD Unavailable Catherine Cm MD Unavailable + Valery Veronica-C Unavailable Brea Quinn PEDIATRIC CLINICAL NURSE SPECIALIST DATA KEYER Unavailable Alfonso Renteria MD Unavailable [phone] Esha GrimmC Primary Care Provider [phone] Radha Lomeli PEDIATRIC CLINICAL NURSE SPECIALIST DATA KEYER Unavailable Jelena David OD Unavailable Alfa, Esha M PA-C Unavailable [phone] Valery Veronica PA-C Unavailable [phone] Rey Tay MD Unavailable Rocky Zepeda DO Unavailable Philip Dumont MD Unavailable Meredith Carrera PA-C Unavailable [phone] Neil Kent MD Unavailable Juan Pablo Emmanuel MD Unavailable [phone] Audrey Waite PA-C Unavailable [phone] Valery Veronica PA-C Unavailable Herminia Hatch MD Unavailable Jelena David OD Unavailable Juan Pablo Emmanuel MD Unavailable [phone] Maru Man PA-C Unavailable Maru Man PA-C Unavailable Jelena David OD Unavailable Encounter Details Date Type Department Care Team (Late st Contact Info) Description 06/06/2024 Orders Only [facility] [address] [place] [address] Outside, Provider Social History Tobacco Use Types [...] 1 02/07/2024 [facility] - Occupational Stress Questionnaire Answer Date [...] exercise at this level? 20 min 05/07/2024 [place] Depression Scale Answer Date Recorded [place] Depression Score 5 01/14/2021 Last EPDS Self [...] PM CDT Legal Sex Female 4:13 AM PCTS Gender Identity Female 03/02/2021 5:45 PM CDT Sexual Orientation Straight 02/28/2020 12 :51 AM CDT documented as of this encounter Plan of Treatment Upcoming Encounters Date Type Department Care Team (Late st Contact Info) Description 11/21/2024 7:00 AM CDT Office Visit [facility] [address] [phone] Maru Man PA-C [address] [address] 12/20/2024 2:30 PM CDT Office Visit [facility] [address] [place] [address] Esha Grimm PA-C [address] [place] [phone] 04/16/2025 11:00 AM CDT Virtual Visit [facility] [address] 4th [place] [phone] Meredith Carrera PA-C [address] [place] [address] 175265 documented as of this encounter Procedures Procedure Name Priority Date/Time Associated Diagnosis Comments HLA RESULT REPORT 06/06/2024 2:04 PM PCTS documented in this encounter Results * HLA Result Report (06/06/2024 2:04 PM PCTS) us Provider Outside LAB - IMMUNOLOGY ORDERABLES [...] as of this encounter Care Teams Bill Peddler Relationship Specialty Start Date End Date Esha Grimm PA-C [address] [place] [phone] PCP - General Family Medicine 05/04/23 Diana Desir, [facility] [address] [place] [address] Pharmacist Pharmacist 04/17/21 Rain Galaviz PA-C [address] [place] [address] ENMA KNUTSON [address] Physician Lending Consultant Dermatology 04/28/21 Tavia Wyatt MD [address] [place] [address] DR RAZO [facility] [place] [facility] [place] [id number] Dermatology 07/14/21 Erica Farrell APRN DATA KEYER [address] [place] 595435 Nurse Practitioner Cardiovascular Disease 09/09/21 Rich Barrett MD [address] [place] 314355 Physician Ophthalmology 01/21/22 Neil Kent MD [address] [place] [address] 240945 Dermatology 02/24/22 [facility] [address] [place], [place] 690916 Assigned [place] Pharmacist 04/07/22 Livan Sharif MD [address] [place] [address] Cardiovascular Disease 05/14/22 Catherine Cm MD [address] [place] 375425 Cardiovascular Disease 07/21/22 Valery Veronica, PA-C [address]09 [place], [place] 943145 Physician Lending Consultant Dermatology 07/21/22 Brea Quinn APRN DATA KEYER [address] [place] [address] Nurse Practitioner Dermatology 09/21/22 Alfonso Renteria MD [address] [facility] [address] [place], [place] 077346 Assigned Neuroscience Provider 04/02/23 09/29/24 Radha Lomeli, PEDIATRIC CLINICAL NURSE SPECIALIST DATA KEYER [address] [facility] [address] [place], [place] 101485 Assigned Heart and Vascular Provider 05/28/23 Jelena David OD [address] [facility] [address] [place] [id number] MD Ophthalmology 06/15/23 Esha Grimm PA-C [address] [place] [phone] Assigned PCP 07/16/23 Valery Veronica PA-C [address] [place] [address] 988955 Physician Lending Consultant Dermatology 09/19/23 Rey Tay MD [address] [place] [address] 389285 Gastroenterology 09/20/23 Rocky Zepeda DO [address] [place] [address] 349895 Physician Gastroenterology 09/20/23 Philip Dumont MD [address] [place] [address] Physician Ophthalmology 09/22/23 Meredith Carrera PA-C [address] [place] [address] Assigned Gastroenterology Provider 11/01/23 Neil Kent MD [address] [place] [address] Dermatology 11/02/23 [place] [address] [place] [address] 42951 Neurological Surgery 12/26/23 Audrey Waite PA-C [address] [place] [address] Physician Lending Consultant Dermatology 02/28/24 Valery Veronica PA-C [address] [place] [address] Physician Lending Consultant Dermatology 04/10/24 Herminia Hatch MD [address] [place] [address] [id number] Assigned Rheumatology Provider 07/02/24 Jelena David OD [address] [place] [address] [place] K[place] [address] Ophthalmology 08/30/24 [place] [address] [place] 432[address] Assigned Neuroscience Provider 09/30/24 Maru Man PA-C [address] [place] [address] Physician Lending Consultant Dermatology 10/03/24 Maru Man PA-C [address] [place] [address] Physician Lending Consultant Dermatology 10/22/24 Jelena David OD [facility] [facility] [place] [address] Assigned Surgical Provider 10/31/24 documented as of this encounter
--- OUTSIDE RECORDS SUMMARY | 2024-11-21 04:23 | XMS_ITS | Encounter Summary ---
Author Organization [place] Address [address] [place] [address] Care Team Providers Care Speech Pathology Supervisor Name Role Phone Diana Desir [facility] Unavailable Rain GalavizC Unavailable Tavia Wyatt MD Unavailable Erica Farrell APRN CEILING CLEANER Unavailable Rich Barrett MD Unavailable [phone] Neil Kent MD Unavailable DesirKendrickDiana Stanislav [facility] Unavailable [phone] Livan Sharif MD Unavailable Catherine Cm MD Unavailable + Valery Veronica-C Unavailable [phone] Brea Quinn BARREL RIFLER OPERATOR CEILING CLEANER Unavailable Alfonso Renteria MD Unavailable [phone] Esha GrimmC Primary Care Provider [phone] Radha Lomeli BARREL RIFLER OPERATOR CEILING CLEANER Unavailable Jelena David OD Unavailable Alfa, Esha M PA-C Unavailable [phone] Valery Veronica PA-C Unavailable [phone] Rey Tay MD Unavailable Rocky Zepeda DO Unavailable Philip Dumont MD Unavailable [phone] Meredith Carrera PA-C Unavailable Neil Kent MD Unavailable Juan Pablo Emmanuel MD Unavailable Audrey Waite PA-C Unavailable Valery Veronica PA-C Unavailable Herminia Hatch MD Unavailable Jelena David OD Unavailable Juan Pablo Emmanuel MD Unavailable Maru Man PA-C Unavailable Mrau Man PA-C Unavailable Jelena David OD Unavailable Encounter Details Date Type Department Care Team (Late st Contact Info) Description 06/05/2024 MyC Medical Advice [facility] Specialty [address] [phone] Herminia Hatch MD [facility] [place], [place] [phone] Social History Tobacco Use Types Packs/Day Years [...] 1 02/07/2024 [facility] of Occupat ional [...] exercise at this level? 20 min 05/07/2024 [place] Depression Scale Answer Date Recorded [place] Depression Score 5 01/14/2021 Last EPDS Self [...] PM CDT Legal Sex Female 4:13 AM NEW HOME SALES CONSULTANT Gender Identity Female 03/02/2021 5:45 PM CDT Sexual Orientation Straight 02/28/2020 12 :51 AM CDT documented as of this encounter Plan of Treatment Upcoming Encounters Date Type Department Care Team (Late st Contact Info) Description 11/21/2024 7:00 AM CDT Office Visit [facility] [address] [phone] Maru Man PA-C [address] [place] [address] 053300 12/20/2024 2:30 PM CDT Office Visit [facility] [address] [place] [phone] Esha Grimm PA-C [address] [place] [address] 04/16/2025 11:00 AM CDT Virtual Visit [facility] [address]th [place] [phone] Meredith Carrera PA-C [address] [place] [address] 170825 documented as of this encounter Visit Diagnoses [...] Start Date End Date Esha Grimm PA-C [address] [place] [address] PCP - General Family Medicine 05/04/23 Diana Desir, [facility] [address] Pharmacist Pharmacist 04/17/21 Rain Galaviz PA-C [address] [place] [address] [address] [place] [address] Physician Per Diem Rn Dermatology 04/28/21 Tavia Wyatt MD [address] [place] [address] [address] [place] [address] Dermatology 07/14/21 Erica Farrell APRN CEILING CLEANER [address] [place] 08[address]45 Nurse Practitioner Cardiovascular Disease 09/09/21 Rich Barrett MD [address] [place], [place] 340605 Physician Ophthalmology 01/21/22 Neil Kent MD 500 [place], [place] 925875 Dermatology 02/24/22 [facility] [address] [place] [address] Assigned MTM Pharmacist 04/07/22 Livan Sharif MD [address] [address] Cardiovascular Disease 05/14/22 Catherine Cm MD [address] [address] Cardiovascular Disease 07/21/22 Valery Veronica, PA-C [address] [place] [address] 496855 Physician Per Diem Rn Dermatology 07/21/22 Brea Quinn APRN CEILING CLEANER [address] [place] [address] 708775 Nurse Practitioner Dermatology 09/21/22 Alfonso Renteria MD [address] [facility] [address] [place] [address] Assigned Neuroscience Provider 04/02/23 09/29/24 Radha Lomeli APRN CEILING CLEANER [address] [facility] [address] [place] [address] Assigned Heart and Vascular Provider 05/28/23 Jelena David OD [address] [facility] [place] [address] MD Ophthalmology 06/15/23 Esha Grimm PA-C [address] [place] [address]114683 Assigned PCP 07/16/23 Valery Veronica PA-C [address] [place] [address] 124665 Physician Per Diem Rn Dermatology 09/19/23 Rey Tay MD [address] [place] [address] 046365 Gastroenterology 09/20/23 Rocky Zepeda DO [address] [place] [address] 174465 Physician Gastroenterology 09/20/23 Philip Dumont MD [address] [place] [address] 739715 Physician Ophthalmology 09/22/23 Meredith Carrera PA-C 909 [place] [address] Assigned Gastroenterology Provider 11/01/23 Neil Kent MD [address] [place] [address] Dermatology 11/02/23 [place] [address] [place], [place] 340947 Neurological Surgery 12/26/23 Audrey Waite PA-C 500 [place] [address] Physician Per Diem Rn Dermatology 02/28/24 Valery Veronica PA-C 811115 [place], [place] 855739 Physician Per Diem Rn Dermatology 04/10/24 Herminia Hatch MD [facility]5 [place], [place] 01765125 Assigned Rheumatology Provider 07/02/24 Jelena David OD [address] [facility] [place] [address] Ophthalmology 08/30/24 [place] [address] [place] [address] Assigned Neuroscience Provider 09/30/24 Maru Man PA-C [address] [place] [address] Physician Per Diem Rn Dermatology 10/03/24 Maru Man PA-C [address] [place] [address] Physician Per Diem Rn Dermatology 10/22/24 Jelena David OD [address] [place] [address] [place] KING [address] Assigned Surgical Provider 10/31/24 documented as of this encounter
--- OUTSIDE RECORDS SUMMARY | 2024-11-21 04:23 | XMS_ITS | Encounter Summary ---
Author Organization [place] Address [address] [place] [address] Care Team Providers Care Termite Control Servicer Name Role Phone Diana Desir [facility] Unavailable Rain Galaviz PA-C Unavailable Tavia Wyatt MD Unavailable Erica Farrell APRN EDUCATION PARAPROFESSIONAL Unavailable Rich Barrett MD Unavailable [phone] Neil Kent MD Unavailable Diana Desir [facility] Unavailable Livan Sharif MD Unavailable Catherine Cm MD Unavailable + Valery Veronica PA-C Unavailable Brea Quinn AIRCRAFT MECHANIC ELECTRICAL AND RADIO EDUCATION PARAPROFESSIONAL Unavailable Brea Quinn AIRCRAFT MECHANIC ELECTRICAL AND RADIO EDUCATION PARAPROFESSIONAL Unavailable Jose Francisco Johnson MD Unavailable Alfonso Renteria MD Unavailable [phone] Esha Grimm PA-C Primary Care Provider Radha Lomeli APRN EDUCATION PARAPROFESSIONAL Unavailable Jelena David OD Unavailable [phone] Pao Joseph RN Unavailable Unavailable Esha Grimm PA-C Unavailable [phone] Valery Veronica PA-C Unavailable Rey Tay [...] Contact Info) Description 08/01/[address] [facility] [address] [place] [address] Esha Grimm PA-C [address] [place] [address] Outreach Social History Tobacco Use [...] week 03/10/2023 How often do you attend [facility] or scientologist services? 1 to [...] PM CDT Legal Sex Female 4:13 AM FIXTURE REPAIRER FABRICATOR Gender Identity Female 03/02/2021 5:45 PM CDT Sexual Orientation Straight 02/28/2020 12 :51 AM CDT documented as of this encounter Miscellaneous Notes * Telephone Encounter - Pao Joseph RN - 08/01/2023 2:31 PM CST Esha Grimm PA-C- ANGEL LUIS. See pt's Mychart messages. Routed to PCP Pao Marcos RN PAL (Patient Advocate Liaison) [facility] URE REPAIRER FABRICATOR documented in this encounter Plan of Treatment Upcoming Encounters Date Type Department Care Team (Late st Contact Info) Description 11/21/2024 7:00 AM CDT Office Visit [facility] [address] [phone] Maru Man PA-C [address] 657910 12/20/2024 2:30 PM CDT Office Visit [address] [phone] Esha Grimm PA-C [address] [place] [address] 04/16/2025 11:00 AM CDT Virtual Visit [facility] [address] [place] [phone] Meredith Carrera PA-C [address] [place] [address] 351795 documented as of this encounter Visit Diagnoses [...] Total Score: 4 06/20/20 23 8:40 AM FIXTURE REPAIRER FABRICATOR documented as of this encounter Care Teams Termite Control Servicer Relationship Specialty Start Date End Date Esha Grimm PA-C [address] [place] [phone] PCP - General Family Medicine 05/04/23 Diana Desir, [facility] [address] [place] [address] Pharmacist Pharmacist 04/17/21 Rain Galaviz PA-C [address] [place] [address] [address] [place] [address] Physician Pulverizer Mill Operator Dermatology 04/28/21 Tavia Wyatt MD [address] [place] [address] [address] [facility] [place] [address] Dermatology 07/14/21 Erica Farrell APRN EDUCATION PARAPROFESSIONAL [address] [place] [address] Nurse Practitioner Cardiovascular Disease 09/09/21 Rich Barrett MD [address] [place] [address] Physician Ophthalmology 01/21/22 Neil Kent MD 500 [place], [place] 134015 Dermatology 02/24/22 Diana Desir, [facility] [address] [place] [address] Assigned MTM Pharmacist 04/07/22 Livan Sharif MD [address] [facility] [address] [place] [address] Cardiovascular Disease 05/14/22 Catherine Cm MD 6405 [facility] [address] [place] [address] Cardiovascular Disease 07/21/22 Valery Veronica, PAUcheC [address] [place] [address] 897245 Physician Pulverizer Mill Operator Dermatology 07/21/22 Brea Quinn APRN EDUCATION PARAPROFESSIONAL [address] [place] [address] 240405 Nurse Practitioner Dermatology 09/21/22 Brea Quinn APRN EDUCATION PARAPROFESSIONAL [address] [place], [place] 467032 Assigned Surgical Provider 10/09/22 05/01/24 [place] [address] [address] [facility] 300 [place] [address] Assigned Musculoskeletal Provider 10/09/22 05/01/24 Alfonso Renteria MD [address] [facility] 200 [place], [place] [id number] Assigned Neuroscience Provider 04/02/23 09/29/24 Radha Lomeli APRN EDUCATION PARAPROFESSIONAL [address] [place], [place] 882125 Assigned Heart and Vascular Provider 05/28/23 Jelena David OD [address] [facility] [place] [address] MD Ophthalmology 06/15/23 Pao Joseph, RN Personal Advocate & Liaison (PAL) Nurse 08/01/23 11/07/23 Esha Grimm PA-C [address] [place] [phone] Assigned PCP 07/16/23 Valery Veronica PA-C [address] [place] [address] 096265 Physician Pulverizer Mill Operator Dermatology 09/19/23 Rey Tay MD [address] [place] [address] MD Gastroenterology 09/20/23 Rocky Zepeda DO [address] [place] [address] 284095 Physician Gastroenterology 09/20/23 Philip Dumont MD [address] [place] [address] 320115 Physician Ophthalmology 09/22/23 Meredith Carrera PA-C [address] [place] [address] 720665 Assigned Gastroenterology Provider 11/01/23 Neil Kent MD [address] 001630 Dermatology 11/02/23 [place] [address] [place] [address] Neurological Surgery 12/26/23 Audrey Waite PA-C 500 [place] [address] Physician Pulverizer Mill Operator Dermatology 02/28/24 Valery Veronica PA-C [address] [place] [address] Physician Pulverizer Mill Operator Dermatology 04/10/24 Herminia Hatch MD [address] [place] [address] [id number] Assigned Rheumatology Provider 07/02/24 Jelena David, SONJA [address] [place] [address] [place] [address] Ophthalmology 08/30/24 [place] [address] [place] [address] Assigned Neuroscience Provider 09/30/24 Maru Man PA-C [address] [place] [address] Physician Pulverizer Mill Operator Dermatology 10/03/24 Maru Man PA-C [address] [place] [address] Physician Pulverizer Mill Operator Dermatology 10/22/24 Jelena David, SONJA [address] [facility] [place] [address] Assigned Surgical Provider 10/31/24 documented as of this encounter
--- OUTSIDE RECORDS SUMMARY | 2024-11-21 04:23 | XMS_ITS | Encounter Summary ---
Author Organization [place] Address [address] [place] [address] Care Team Providers Care Bite Block Maker Name Role Phone Diana Desir [facility] Unavailable [phone] Rain Galaviz PA-C Unavailable Tavia Wyatt MD Unavailable Erica Farrell APRN GI PHYSICIAN Unavailable Rich Barrett MD Unavailable [phone] Neil Kent MD Unavailable DesirDiana [facility] Unavailable [phone] Livan Sharif MD Unavailable Catherine Cm MD Unavailable + Valery Veronica PA-C Unavailable [phone] Brea Quinn APRN GI PHYSICIAN Unavailable [phone] Brea Quinn NETWORKING TECHNICIAN GI PHYSICIAN Unavailable [phone] Jose Francisco Johnson MD Unavailable Sydnie Martinez RN Unavailable Unavailable Alfonso Renteria MD Unavailable [phone] Esha Grimm PA-C Primary Care Provider Cheng Todd PA-C Unavailable Radha Lomeli APRN GI PHYSICIAN Unavailable Jelena David OD Unavailable Pao Joseph RN Unavailable Unavailable Esha Grimm Adam PA-C Unavailable [phone] Valery Veronica PA-C Unavailable Rey Tay [...] PA-C Unavailable Jelena David OD Unavailable [phone] Encounter Details Date Type Department Care Team (Late st Contact Info) Description 06/17/2023 MyC Medical Advice [facility] [address], [address] [place] [address] Alfonso Renteria MD [address] [facility] [address] 200 [place] [address] Social History Tobacco Use Types [...] 06/20/2023 [facility]at [...] exercise at this level? 30 min 03/10/2023 Questa Depression Scale Answer Date Recorded Questa Depression Score 5 01/14/2021 Last EPDS Self [...] in an overnight assisted, or couch-surfing.) Yes 06/20/2023 Are you worried [...] CDT Legal Sex Female 4:13 AM EXECUTIVE DIRECTOR Gender Identity Female 03/02/2021 5:45 PM CDT Sexual Orientation Straight 02/28/2020 12 :51 AM CDT documented as of this encounter Miscellaneous Notes * Telephone Encounter - Lulu Xie - 06/28/2023 12:08 PM CST Patient calling to follow up on the below [employer] message. Patient continues to have a lot of dizzyness and neck pain. UTIVE DIRECTOR documented in this encounter Plan of Treatment Upcoming Encounters Date Type Department Care Team (Late st Contact Info) Description 11/21/2024 7:00 AM CDT [facility] [address] [phone] Maru Man PA-C [address] [address] 12/20/2024 2:30 PM CDT Office Visit [address] [address] Esha Grimm PA-C [id number] [place] [address] 04/16/2025 11:00 AM CDT Virtual Visit [facility] [address] [place] [phone] Meredith Carrera PA-C [address] [place] [address] documented as of this encounter Visit Diagnoses [...] Depression Total Score: 6 05/16/20 9:29 AM EXECUTIVE DIRECTOR documented as of this encounter Care Teams Bite Block Maker Relationship Specialty Start Date End Date Esha Grimm PA-C [address] [place] [address] PCP - General Family Medicine 05/04/23 Diana Desir, [facility] [address] [place] [address] Pharmacist Pharmacist 04/17/21 Rain Galaviz PA-C [address] [place] [address] [address] [facility] [address] Physician Staple Laster Dermatology 04/28/21 Tavia Wyatt MD [address] [place] [address] [address] [facility] [place] [address] Dermatology 07/14/21 Erica Farrell APRN GI PHYSICIAN [address] [place], [place] 7825[address] Nurse Practitioner Cardiovascular Disease 09/09/21 Rich Barrett MD [address] [place] [address] Physician Ophthalmology 01/21/22 Neil Kent MD 500 [place], [place] 206915 Dermatology 02/24/22 Diana Desir, [facility] [address] [place] [address] Assigned MTM Pharmacist 04/07/22 Livan Sharif MD 6405 [facility] [address] [place] [address] Cardiovascular Disease 05/14/22 Catherine Cm MD [address] [facility] [address] [place] [address] Cardiovascular Disease 07/21/22 Valery Veronica PA-C [address] [place] [address] 905775 Physician Staple Laster Dermatology 07/21/22 Brea Quinn APRN GI PHYSICIAN [address] [place] [address] 154135 Nurse Practitioner Dermatology 09/21/22 Brea Quinn APRN GI PHYSICIAN 64[address] [place], [place] 869082 Assigned Surgical Provider 10/09/22 05/01/24 [place] [address] [facility] 300 [place] [address] Assigned Musculoskeletal Provider 10/09/22 05/01/24 Sydnie Martinez RN Personal Advocate & Liaison (PAL) Family Medicine 03/28/23 07/31/23 Alfonso Renteria MD 5775 [facility] 200 [place], [place] 923646 Assigned Neuroscience Provider 04/02/23 09/29/24 Cheng Todd PA-C [address] [place] [address] [phone] Assigned PCP 04/30/23 07/15/23 Radha Lomeli APRN CNP 6405 [facility] [address] [place] [address] Assigned Heart and Vascular Provider 05/28/23 Jelena David OD [address] [facility] [place] [address] MD Ophthalmology 06/15/23 Pao Joseph, VJ Personal Advocate & Liaison (PAL) Nurse 08/01/23 11/07/23 Esha Grimm PA-C [address] [place] [phone] Assigned PCP 07/16/23 Valery Veronica PA-C [address] [place] [address] 141835 Physician Staple Laster Dermatology 09/19/23 Rey Tay MD [address] [place] [address] 248565 Gastroenterology 09/20/23 Rocky Zepeda DO [address] [place] [address] Physician Gastroenterology 09/20/23 Philip Dumont MD [address] [place] [address] 124855 Physician Ophthalmology 09/22/23 Meredith Carrera PA-C [address] [place] [address] Assigned Gastroenterology Provider 11/01/23 Neil Kent MD [address] [place] [address] Dermatology 11/02/23 [place] [address] [place] [address] Neurological Surgery 12/26/23 Audrey Waite PA-C [address] [place] [address] Physician Staple Laster Dermatology 02/28/24 Valery Veronica PA-C [address] [place] [address] Physician Staple Laster Dermatology 04/10/24 Herminia Hatch MD [address] [place] [address] [phone] Assigned Rheumatology Provider 07/02/24 Jelena David OD [address] [place] [address] [place] [address] Ophthalmology 08/30/24 [place] [address] [place] [address] Assigned Neuroscience Provider 09/30/24 Maru Man PA-C [address] [place] [address] Physician Staple Laster Dermatology 10/03/24 Maru Man PA-C [address] [place] [address] Physician Staple Laster Dermatology 10/22/24 Jelena David OD [address] [facility] [place] [address] Assigned Surgical Provider 10/31/24 documented as of this encounter
--- OUTSIDE RECORDS SUMMARY | 2024-11-21 04:23 | XMS_ITS | Encounter Summary ---
Author Organization [place] Address [address] [place] [address] Care Team Providers Care Packing And Wrapping Supervisor Name Role Phone Diana Desir [facility] Unavailable Rain Galaviz PA-C Unavailable Tavia Wyatt MD Unavailable Erica Farrell APRN GRINDER SET UP OPERATOR SURFACE Unavailable Rich Barrett MD Unavailable [phone] Neil Kent MD Unavailable DesirDiana [facility] Unavailable Livan Sharif MD Unavailable Catherine Cm MD Unavailable + Valery Veronica PA-C Unavailable Brea Quinn APRN GRINDER SET UP OPERATOR SURFACE Unavailable Brea Quinn COTTON MACHINE OPERATOR GRINDER SET UP OPERATOR SURFACE Unavailable Jose Francisco Johnson MD Unavailable Sydnie Martinez RN Unavailable Unavailable Alfonso Renteria MD Unavailable [phone] Esha Grimm PA-C Primary Care Provider Cheng Todd PA-C Unavailable Radha Lomeli APRN GRINDER SET UP OPERATOR SURFACE Unavailable Jelena David OD Unavailable Pao Joseph RN Unavailable Unavailable Esha Grimm Adam PA-C Unavailable [phone] Valery Veronica PA-C Unavailable Rey Tay [...] Info) Description 07/06/2023 MyC Medical Advice [facility] [address], [address] [place] [address] Alfonso Renteria MD [address] [facility] [address] 200 [place] [address] Social History Tobacco Use Types [...] exercise at this level? 30 min 03/10/2023 Westover Depression Scale Answer Date Recorded [place]over Depression Score 5 01/14/2021 Last EPDS Self [...] CDT Legal Sex Female 4:13 AM FIELD PIPELINES SUPERVISOR Gender Identity Female 03/02/2021 5:45 PM CDT Sexual Orientation Straight 02/28/2020 12 :51 AM CDT documented as of this encounter Miscellaneous Notes * Telephone Encounter - Genny Hyman PA-C - 07/07/2023 11:13 AM FIELD PIPELINES SUPERVISOR No lesions/abnormal findings on MRI to account for possible seizure activity. Last office note indicated: If repeat MRI was normal would reduce levetiracetam to 250 mg per day for two weeks and then stop. Ok to proceed with this plan. Call if questions, concerns, or worsening of symptoms with discontinuation of the medication Genny Hyman PA-C D PIPELINES SUPERVISOR documented in this encounter Plan of Treatment Upcoming Encounters Date Type Department Care Team (Late st Contact Info) Description 11/21/2024 7:00 AM CDT [facility] [address] [address] Maru Man PA-C [address] [address] 12/20/2024 2:30 PM CDT Office Visit [facility] [address] [place] [phone] Esha Grimm PA-C [address] [place] [address] 04/16/2025 11:00 AM CDT Virtual Visit [facility] Gastroenterology Clinic [address] [place] [phone] Meredith Carrera PA-C [address] [place] [address] documented as of this encounter Visit Diagnoses [...] Score: 4 06/20/20 23 8:40 AM FIELD PIPELINES SUPERVISOR documented as of this encounter Care Teams Packing And Wrapping Supervisor Relationship Specialty Start Date End Date Esha Grimm [place]-C [address] [place] [phone] PCP - General Family Medicine 05/04/23 Diana Desir, [facility] [address] [place] [address] Pharmacist Pharmacist 04/17/21 Rain Galaviz PA-C [address] [place] [address] [address] [place] [address] Physician Order Analyst Dermatology 04/28/21 Tavia Wyatt MD [address] [place] [address] [address] [facility] [place] [place] [address] Dermatology 07/14/21 Erica Frarell APRN GRINDER SET UP OPERATOR SURFACE [address] [place] [address] Nurse Practitioner Cardiovascular Disease 09/09/21 Rich Barrett MD [address] [place] [address] Physician Ophthalmology 01/21/22 Neil Kent MD 500 [place] [address] Dermatology 02/24/22 [facility] 3033 [place] [address] Assigned MTM Pharmacist 04/07/22 Livan Sharif MD [address] [facility] [address] [facility] [address] [place] [address] Cardiovascular Disease 05/14/22 Catherine Cm MD [address] [place], [place] 682845 Cardiovascular Disease 07/21/22 Valery Veronica, PA-C [address] [place] [address] 738375 Physician Order Analyst Dermatology 07/21/22 Brea Quinn APRN GRINDER SET UP OPERATOR SURFACE 500 [place], [place] 310605 Nurse Practitioner Dermatology 09/21/22 Brea Quinn APRN GRINDER SET UP OPERATOR SURFACE [address] [place] [address] Assigned Surgical Provider 10/09/22 05/01/24 [place] [address] [facility] [facility] 300 [place] [address] Assigned Musculoskeletal Provider 10/09/22 05/01/24 Sydnie Martinez RN Personal Advocate & Liaison (PAL) Family Medicine 03/28/23 07/31/23 Alfonso Renteria MD 5775 [facility] 200 [place], [place] 371856 Assigned Neuroscience Provider 04/02/23 09/29/24 Cheng Todd PA-C [address] [place] [address] [id number] Assigned PCP 04/30/23 07/15/23 Radha Lomeli APRN GRINDER SET UP OPERATOR SURFACE [address] [facility] [address] [place] [address] Assigned Heart and Vascular Provider 05/28/23 Jelena David OD [address] [place] [address] Ophthalmology 06/15/23 Pao Joseph, VJ Personal Advocate & Liaison (PAL) Nurse 08/01/23 11/07/23 Esha Grimm PA-C [address] [place] [address] Assigned PCP 07/16/23 Valery Veronica PA-C [address] [place] [address] 269235 Physician Order Analyst Dermatology 09/19/23 Rey Tay MD [address] [place] [address] 771935 Gastroenterology 09/20/23 Rocky Zepeda DO [address] [place] [address] 896045 Physician Gastroenterology 09/20/23 Phliip Dumont MD [address] [place] [address] Physician Ophthalmology 09/22/23 Meredith Carrera PA-C [address] [place] [address] Assigned Gastroenterology Provider 11/01/23 Neil Kent MD [address] [address] Dermatology 11/02/23 [place] [address] [place] [address] Neurological Surgery 12/26/23 Audrey Waite PA-C 500 [place] [address] Physician Order Analyst Dermatology 02/28/24 Valery Veronica PA-C 285469 [address] [place] [address] Physician Order Analyst Dermatology 04/10/24 Hermiina Hatch MD [address] [place] [address] [id number] Assigned Rheumatology Provider 07/02/24 [place] [address] [place] [address] [place] [address] Ophthalmology 08/30/24 [place] [address] [place] [address] Assigned Neuroscience Provider 09/30/24 Maru Man PA-C [address] [place] [address] Physician Order Analyst Dermatology 10/03/24 Maru Man PA-C [address] [place] [address] Physician Order Analyst Dermatology 10/22/24 Jelena David OD [address] [place] [address] [place] [address] Assigned Surgical Provider 10/31/24 documented as of this encounter
--- OUTSIDE RECORDS SUMMARY | 2024-11-21 04:23 | XMS_ITS | Encounter Summary ---
Author Organization [place] Address [address] [place] [address] Care Team Providers Care Road Packer Operator Name Role Phone Diana Desir Stanislav [facility] Unavailable Rain Galaviz PA-C Unavailable Tavia Wyatt MD Unavailable Erica Farrell APRN WALL ATTENDANT Unavailable Rich Barrett MD Unavailable [phone] Neil Kent MD Unavailable ThangKendrickDiana Stanislav [facility] Unavailable [phone] Livan Sharif MD Unavailable Catherine Cm MD Unavailable + Valery Veronica-C Unavailable Brea Quinn ROLLING CHAIR PUSHER WALL ATTENDANT Unavailable Esha Grimm PA-C Primary Care Provider [phone] Radha Lomeli APRN WALL ATTENDANT Unavailable Jelena David OD Unavailable Esha Grimm PA-C Unavailable [phone] Valery Veronica PA-C Unavailable Rey Tay MD Unavailable Duane Rockyanne [facility] Unavailable Philip Dumont MD Unavailable [phone] Meredith CarreraC Unavailable Neil Kent MD Unavailable Juan Pablo Emmanuel MD Unavailable Audrey Waite-C Unavailable Valery Veronica-C Unavailable [phone] Herminia Hatch MD Unavailable Jelena David OD Unavailable Juan Pablo Emmanuel MD Unavailable Maru ManC Unavailable [phone] Reason for Visit * Reason Onset Date Comments Appointment 10/18/2024 10/31/2024 Encounter Details Date Type Department Care Team (Late st Contact Info) Description 10/18/2024 [facility] Gastro[facility] Clinic [address] [place] [address] Meredith Carrera PA-C [address] [place] [address] Appointment (10/31/2024) Social History Tobacco Use [...] PHQ-2 Score 1 02/07/2024 [facility] - [...] exercise at this level? 20 min 05/07/2024 Castile Depression Scale Answer Date Recorded Castile Depression Score 5 01/14/2021 Last EPDS Self [...] CDT Legal Sex Female 4:13 AM LIFE TEACHER Gender Identity Female 03/02/2021 5:45 PM CDT Sexual Orientation Straight 02/28/2020 12 :51 AM CDT documented as of this encounter Miscellaneous Notes * Telephone Encounter - Richar Schafer - 10/18/2024 2:37 PM CDT Due to a change in the provider's schedule for 10/31/2024, [employer] is reaching out to see if Pt is able to move Pt's appointment time form 10:45 AM to 9:15 AM. Car [employer]ocker called and talked with the Pt. Pt was okay with the appointment time change to 9:15 AM. documented in this encounter Plan of Treatment Upcoming Encounters Date Type Department Care Team (Late st Contact Info) Description 11/21/2024 7:00 AM CDT Office [facility] [address] [phone] Maru Man PA-C [address] [address] 12/20/2024 2:30 PM CDT Office Visit [facility] [address] [place] [phone] Esha Grimm PA-C [address] [place] [address] 04/16/2025 11:00 AM CDT Virtual Visit [facility] Gastroenterology Clinic [address] [phone] Meredith Carrera PA-C [address] [place] [address] documented as of this encounter Visit Diagnoses Not on filedocumented in this encounter Additional Health Concerns Assessment Noted Time PHQ-9 Depression Total Score: 3 02/07/20 24 9:33 AM CDT documented as of this encounter Care Teams Road Packer Operator Relationship Specialty Start Date End Date Esha Grimm PA-C [address] [place] [address] PCP - General Family Medicine 05/04/23 Diana Desir, [facility] [address] [facility] [place] [address] Pharmacist Pharmacist 04/17/21 Rain Galaviz PA-C [address] [place] [address] [place] [address] Physician Hot Wort Settler Dermatology 04/28/21 Tavia Wyatt MD [address] [place] [address] [address] [place] [address] Dermatology 07/14/21 Erica Farrell APRN WALL ATTENDANT [address] [place] [address] Nurse Practitioner Cardiovascular Disease 09/09/21 Rich Barrett MD [address] [place] 316325 Physician Ophthalmology 01/21/22 Neil Kent MD [address] [place] [address] 257825 Dermatology 02/24/22 [facility] [address] [place] [address] Assigned [facility] Pharmacist 04/07/22 Livan Sharif MD [address] [place] [address] Cardiovascular Disease 05/14/22 Catherine Cm MD [address] [place] 0[address] Cardiovascular Disease 07/21/22 Valery Veronica, PA-C [address] [place] [address] 510915 Physician Hot Wort Settler Dermatology 07/21/22 Brea Quinn APRN WALL ATTENDANT [address] [place] [address] 649875 Nurse Practitioner Dermatology 09/21/22 Radha Lomeli APRN WALL ATTENDANT [address] [place] [address] [address] [place], [place] 149465 Assigned Heart and Vascular Provider 05/28/23 Jelena David OD 3305 [facility] [address] [place] [id number] MD Ophthalmology 06/15/23 Esha Grimm PA-C [address] [place] [address] Assigned PCP 07/16/23 Valery Veronica PA-C [address] [place] [address] 318575 Physician Hot Wort Settler Dermatology 09/19/23 Rey Tay MD [address] [place] [address] 024185 Gastroenterology 09/20/23 Rocky Zepeda DO [address] [place] [address] 962245 Physician Gastroenterology 09/20/23 Philip Dumont MD [address] [place] [address] Physician Ophthalmology 09/22/23 Meredith Carrera PA-C 909 [place] [address] Assigned Gastroenterology Provider 11/01/23 Neil Kent MD [address] [place] [address] Dermatology 11/02/23 [place] [address] [place] [address] Neurological Surgery 12/26/23 Audrey Waite PA-C [address] [place] [address] Physician Hot Wort Settler Dermatology 02/28/24 Valery Veronica PA-C 629392 [place], [place] [address] Physician Hot Wort Settler Dermatology 04/10/24 Herminia Hatch MD [facility] [place], [place] 24552125 Assigned Rheumatology Provider 07/02/24 Jelena David OD [address] [place] [address] [place] [address] Ophthalmology 08/30/24 [place] [address] [place] [address] Assigned Neuroscience Provider 09/30/24 Maru Man PA-C [address] [place] [address] Physician Hot Wort Settler Dermatology 10/03/24 documented as of this encounter
[2024-11-21 04:34] VITALS: PULSE 106; RESP 18; TEMP 36.7; O2SAT 96; O2SAT 97
[2024-11-21] MEDS: IBUPROFEN 200 MG TABLET 600 MG PO (04:48)
--- NOTE | 2024-11-21 04:58 | ED_ITS ---
HPI - General Adult General Chief complaint: Fever Stated complaint: Fever, high HR, body aches, SOB, Time Seen by Provider: 11/21/24 04:45 Source: patient Mode of arrival: ambulatory Limitations: no limitations History of Present Illness HPI narrative: 24-year-old female presents to the emergency department for evaluation of fluctuating heart rate. She has a history of SVT and is prone to fluctuating heart rate when she gets ill. She says that she has had fever and body aches for the past 3 days, feeling similar to when she has had mastitis and COVID in the past. She is not immunocompromised, she does not use chemotherapy. She denies any dysuria, sore throat, productive cough or other localizing symptoms of infection. 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 Tried taking some Tylenol to help with symptoms but has not had ibuprofen. Notes no chest pain or tightness. She has had an ablation for her SVT in the past. Reports that her heart rate had went as high as 180 at home but quickly settled back to her typical baseline. She called 911 for ambulance to evaluate her, noting stable vital signs. She would not transport to the hospital by ambulance because there was no one to watch her daughter. She instead arrives driving herself by private car. Not currently on any antibiotics. Nonsmoker. Denies any other localizing or systemic symptoms of infection. Reports her past medical history is notable for anxiety, SVT. Home medications are paroxetine 40 mg once daily, omeprazole 40 mg once daily and metoprolol 12.5 mg once daily. Reports an allergy to vancomycin which does sound suspicious for red man syndrome rather than an anaphylactic allergy. ROS is notable for the generalized, cardiac symptoms as above. Otherwise denies times 12 systems. This is her 6th emergency department visit in the past 6 months. Related Data Home Medications ?Medication ?Instructions ?Recorded ?Confirmed omeprazole 40 mg capsule,delayed 40 mg PO DAILY 04/28/22 11/21/24 release lorazepam 0.5 mg tablet 0.5 mg PO DAILY PRN anxiety 03/18/23 11/21/24 metoprolol succinate 25 mg 12.5 mg PO DAILY 10/15/23 11/21/24 tablet,extended release 24 hr paroxetine HCl 40 mg tablet 40 mg PO QAM 10/15/23 11/21/24 ketoconazole 2 % shampoo 1 applic topical 05/02/24 07/13/24 tretinoin 0.05 % topical cream 1 applic topical QPM 05/02/24 10/18/24 (Retin-A) Allergies Allergy/AdvReac Type Severity Reaction Status Date / Time vancomycin Allergy Verified 10/18/24 16:21 [facility] Medical History SVT (supraventricular tachycardia) ?I47.10 - Supraventricular tachycardia, unspecified (ICD-10) Social History Smoking Status: Former smoker What tobacco products do you use: cigarettes Smoking quit date/years: <= 15 years ago Do you use any of these nicotine containing products: None and Vaping Products Second hand tobacco smoke exposure: No How often do you have a drink containing alcohol: monthly or less How often do you have six or more drinks on one occasion: Never AUDIT-C Alcohol total score: 1 Non-prescribed substance use: denies use service: No Exam Const: Vital Signs, click to edit/add: Vital Signs - 24 hr 11/21/24 04:13 11/21/24 04:34 11/21/24 04:34 Temperature 98.1 F 98.1 F 98.1 F Pulse Rate [Pulse Oximeter] 109 H 106 H Respiratory Rate 20 18 18 Blood Pressure [Ri ght Upper Arm] 125/81 Pulse Oximetry 96 97 96 Oxygen Delivery Me thod Room Air Room Air Room Air 11/21/24 05:54 Temperature Pulse Rate [Pulse Oximeter] 93 Respiratory Rate 16 Blood Pressure [Ri ght Upper Arm] Pulse Oximetry 96 Oxygen Delivery Me thod Room Air Documenting provider has reviewed patient's vital signs: yes Common normals: alert Other: Mildly anxious. Does seem quite clear about the tests and workup and treatment that she is wanting done here tonight. Appears well nourished, well hydrated. HENMT: Common normals: normocephalic and moist oral mucous membranes Head and scalp: normocephalic Face and sinus: normal facial exam Other: Mild erythema tonsillar pillars, right greater than left. No exudate. Eye: Common normals: conjunctivae normal General eye: normal appearance of both eyes Conjunctiva: conjunctiva(e) normal Neck & C-Spine: Common normals: full ROM and no meningeal signs General: normal visual inspection Other: Mild right-sided submandibular lymphadenopathy, left side normal. No anterior cervical lymphadenopathy. Resp: Common normals: normal respiratory effort, no use of accessory muscles and clear to auscultation bilaterally Effort & inspection: able to speak in complete sentences Auscultation: clear to auscultation bilaterally Cardio: Common normals: regular rate, regular rhythm, S1 normal heart sound, S2 normal heart sound and no murmurs Rate: regular rate Rhythm: regular rhythm Heart sounds: S1 normal and S2 normal Extremity: Common normals: normal to inspection and no pedal edema Neuro: Sensorium/orientation: alert Meningeal signs: no meningeal signs Speech: speech normal Motor exam: no movement abnormalities noted Psych: Common normals: speech normal Activity/motor behavior: appropriate eye contact Speech: normal speech Attention/concentration: attention grossly intact Memory/cognition: memory grossly intact Insight: fair Judgement: fair Skin: Common normals: no rashes or lesions noted General skin exam: no rashes or lesions noted Course Course ED Course: 24-year-old female with recent body aches, intermittent fevers suggestive of acute viral process. No other obvious localizing symptoms of infection. Fluctuating heart rate not unexpected with his history of fever. It is quite clear that patient is wanting IV fluids, a cardiac workup and additional lab testing. 1 L normal saline ordered. Viral and strep swabs ordered. Urinalysis, typical basic infection investigation labs. Ibuprofen 600 mg p.o. x1 and EKG ordered. Reevaluation(s) Time of Reevaluation #1: 06:06 Reevaluation #1: Patient has been monitored for about an hour and a half and heart rate has not been worrisome. Prior treatment, her EKG showed a heart rate of 92. Has been persistently in the low 90s. Feeling a little better after the ibuprofen in L of IV fluid. Counseled patient on all normal labs besides positive for influenza B. I do think this explains her symptoms. Alarm symptoms reviewed that would warrant ED presentation, written instructions provided. Off work for another 48 hours, then may return without restrictions. She has no further questions. Vital Signs Vital signs: Initial Vital Signs Temperature 98.1 F 11/21/24 04:13 Temperature Source Temporal Artery Scan 11/21/24 04:13 Pulse Rate 109 H 11/21/24 04:13 Respiratory Rate 20 11/21/24 04:13 Blood Pressure 125/81 11/21/24 04:13 Blood Pressure Mean 95 11/21/24 04:13 Blood Pressure Position Sitting 11/21/24 04:13 Pulse Oximetry 96 11/21/24 04:13 Oxygen Delivery Method Room Air 11/21/24 04:13 Vital Signs Temperature 98.1 F 11/21/24 04:13 Pulse Rate 109 H 11/21/24 04:13 Respiratory Rate 20 11/21/24 04:13 Blood Pressure 125/81 11/21/24 04:13 Pulse Oximetry 96 11/21/24 04:13 Oxygen Delivery Method Room Air 11/21/24 04:13 Temperature 98.1 F 11/21/24 04:34 Pulse Rate 93 11/21/24 05:54 Respiratory Rate 16 11/21/24 05:54 Blood Pressure 125/81 11/21/24 04:13 Pulse Oximetry 96 11/21/24 05:54 Oxygen Delivery Method Room Air 11/21/24 05:54 Medications Administered Medications: Discontinued Medications Generic Name Dose Route Start Last Admin Trade Name Freq PRN Reason Stop Dose Admin Sodium Chloride 1,000 mls @ 1,000 mls/hr 11/21/24 04:57 11/21/24 06:00 0.9 % Sodium Chloride 1000 Ml IV 11/21/24 05:56 Infused .Q1H MACIE Infusion Ibuprofen 600 mg 11/21/24 04:46 11/21/24 04:48 Ibuprofen 200 Mg Tablet PO 11/21/24 04:47 600 mg ONCE ONE Administration Medical Decision Making Lab Data Lab results reviewed: Yes I reviewed the patient's lab results Lab results narrative: Positive for influenza B. Remainder of labs reassuring. Labs: Lab Results 11/21/24 11/21/24 11/21/24 Range/Units 04:19 04:57 05:00 WBC (4.50-11.00) K/uL RBC (4.00-5.20) m/uL Hgb (12.0-16.0) gm/dL Hct (33.0-51.0) % MCV (80-100) fL MCH (26-34) pg MCHC (32-36) gm/dL RDW Coeff of Naina (11.5-15.5) % Plt Count (140-440) K/uL Neut % (Auto) (42.0-72.0) % Lymph % (Auto) (20-44) % Morris % (Auto) (0.0-11.0) % Eos % (Auto) (0.0-7.0) % Baso % (Auto) (0.0-3.0) % Neut # (Auto) (1.7-7.0) K/uL Lymph # (Auto) (0.90-2.90) K/uL Morris # (Auto) (0.00-0.90) K/UL Eos # (Auto) (0.00-0.50) K/uL Baso # (Auto) (0.00-0.30) K/uL Abs Immat Gran (auto) (0.00-0.30) K/uL Imm/Tot Granulo (auto) % Sodium (135-149) mmol/L Potassium (3.6-5.1) mmol/L Chloride (96-114) mmol/L Carbon Dioxide (20-32) mmol/L Anion Gap (7-15) mEq/L BUN (5-24) mg/dL Creatinine (0.5-1.5) mg/dL Estimated Creat Clear Estimated GFR ml/min Glucose (60-115) mg/dL Lactate (0.5-1.9) mmol/L Calcium (8.4-10.6) mg/dL C-Reactive Protein (0.5-1.0) mg/dL Urine Color Yellow (Yellow) Urine Appearance Clear (Clear) Urine pH 7.5 (5.0-8.5) Ur Specific University 1.010 (1.000-1.030) Urine Protein Negative (Negative) Urine Glucose (UA) Negative (Negative) Urine Ketones Negative (Negative) Urine Blood Negative (Negative) Urine Nitrite Negative (Negative) Urine Bilirubin Negative (Negative) Urine Urobilinogen 0.2 (0.2-1.0) Ur Leukocyte Esterase Negative (Negative) SARS-CoV-2 (PCR) Negative SARS-CoV-2 (Negative) Influenza Type A (PCR) Negative PCR FLU A (Negative) Influenza Type B (PCR) POSITIVE PCR FLU B A (Negative) RSV (PCR) Negative PCR RSV (Negative) Group A Strep DNA NOT DETECTED (Not Detectd) POC Troponin I 0.00 L (0.01-0.04) ng/ml 11/21/24 Range/Units 05:17 WBC 5.56 (4.50-11.00) K/uL RBC 4.71 (4.00-5.20) m/uL Hgb 12.0 (12.0-16.0) gm/dL Hct 37.6 (33.0-51.0) % MCV 80 (80-100) fL MCH 26 (26-34) pg MCHC 32 (32-36) gm/dL RDW Coeff of Naina 13.7 (11.5-15.5) % Plt Count 186 (140-440) K/uL Neut % (Auto) 74.6 H (42.0-72.0) % Lymph % (Auto) 14.7 L (20-44) % Morris % (Auto) 7.6 (0.0-11.0) % Eos % (Auto) 2.5 (0.0-7.0) % Baso % (Auto) 0.4 (0.0-3.0) % Neut # (Auto) 4.10 (1.7-7.0) K/uL Lymph # (Auto) 0.80 L (0.90-2.90) K/uL Morris # (Auto) 0.40 (0.00-0.90) K/UL Eos # (Auto) 0.14 (0.00-0.50) K/uL Baso # (Auto) 0.02 (0.00-0.30) K/uL Abs Immat Gran (auto) 0.01 (0.00-0.30) K/uL Imm/Tot Granulo (auto) 0.2 % Sodium 137 (135-149) mmol/L Potassium 3.9 (3.6-5.1) mmol/L Chloride 104 (96-114) mmol/L Carbon Dioxide 24 (20-32) mmol/L Anion Gap 9 (7-15) mEq/L BUN 14 (5-24) mg/dL Creatinine 0.8 (0.5-1.5) mg/dL Estimated Creat Clear 101.51 Estimated GFR 105 ml/min Glucose 95 (60-115) mg/dL Lactate 1.0 (0.5-1.9) mmol/L Calcium 9.1 (8.4-10.6) mg/dL C-Reactive Protein 0.8 (0.5-1.0) mg/dL Urine Color (Yellow) Urine Appearance (Clear) Urine pH (5.0-8.5) Ur Specific University (1.000-1.030) Urine Protein (Negative) Urine Glucose (UA) (Negative) Urine Ketones (Negative) Urine Blood (Negative) Urine Nitrite (Negative) Urine Bilirubin (Negative) Urine Urobilinogen (0.2-1.0) Ur Leukocyte Esterase (Negative) SARS-CoV-2 (PCR) (Negative) Influenza Type A (PCR) (Negative) Influenza Type B (PCR) (Negative) RSV (PCR) (Negative) Group A Strep DNA (Not Detectd) POC Troponin I (0.01-0.04) ng/ml ECG Data Attestation: I personally reviewed and interpreted this ECG as follows: Prior ECG tracings: available for review Interpretation: Comparison EKG 10/18/2024. Sinus rhythm with a rate of 92 prior to any treatments. No significant ST or T-wave abnormalities. Normal intervals and axis. Normal EKG. Discharge Plan Discharge Clinical Impression: Influenza B Patient Disposition: Home, Self-Care Condition: Stable Instructions: Influenza (ED) Additional Instructions: As we discussed, your swabs are positive for influenza B. The checks on her heart have all come back normal. It must be frustrating for you to have a heart rate that fluctuates when you get ill. But we are not detecting any dangerous abnormality at this time. Continue taking her metoprolol as prescribed. Drink lots of fluids. 5 days of quarantine are recommended with influenza B so you would be back to work on Tuesday. A work note has been provided for you. Would recommend you continue use of Tylenol 1000 mg every 6 hours and or ibuprofen 600 mg every 6 hours for the body ache, fever, fatigue and other generalized symptoms. Complications from influenza B are rare but can include pneumonia, amongst other ailments. If her symptoms persist for longer than 7 days, please make a follow-up appointment with your primary care provider. If you have severe weakness, severe shortness of breath or other alarming symptoms, please return to emergency department. Activity Level: Activity as Tolerated Discharge Diet: Regular Prescriptions: No Action tretinoin [Retin-A] 0.05 % cream 1 applic topical QPM ketoconazole 2 % shampoo 1 applic topical lorazepam 0.5 mg tablet 0.5 mg PO DAILY PRN (Reason: anxiety) omeprazole 40 mg capsule,delayed release(DR/EC) 40 mg PO DAILY Patient Comments: TAKE ONE CAPSULE BY MOUTH EVERY DAY . metoprolol succinate 25 mg tablet extended release 24 hr 12.5 mg PO DAILY paroxetine HCl 40 mg tablet 40 mg PO QAM Follow Up/Referrals: Provider,Not a Local [Primary Care Provider] - Stand Alone Forms: [employer] Info Instructions
--- OUTSIDE RECORDS SUMMARY | 2024-11-21 05:07 | XMS_ITS | Encounter Summary ---
Author Organization [facility] Address [address] [place] [address] Care Team Providers Care Gold Reclaimer Name Role Phone Diana Desir [facility] Unavailable Rain Galaviz PA-C Unavailable Tavia Wyatt MD Unavailable Erica Farrell APRN HOUSING INSPECTOR Unavailable Rich Barrett MD Unavailable [phone] Neil Kent MD Unavailable Diana Desir [facility] Unavailable [phone] Livan Sharif MD Unavailable Catherine Cm MD Unavailable + Valery Veronica PA-C Unavailable [phone] Brea Quinn MARKET BASKET MAKER HOUSING INSPECTOR Unavailable Brea Quinn MARKET BASKET MAKER HOUSING INSPECTOR Unavailable Jose Francisco Johnson MD Unavailable Alfonso Renteria MD Unavailable [phone] Esha Grimm PA-C Primary Care Provider Lomeli, Radha E MARKET BASKET MAKER HOUSING INSPECTOR Unavailable Jelena David OD Unavailable [phone] Esha Grimm PA-C Unavailable [phone] JeremíasValery damon PA-C Unavailable Rey Tay [...] PA-C Unavailable Jelena David OD Unavailable [phone] Encounter Details Date Type Department Care Team (Late st Contact Info) Description 04/24/2024 [facility] [place] [facility] [id number] [place] [address] [address] [place] [address] Radha Lomeli, MARKET BASKET MAKER HOUSING INSPECTOR [address] [place] [address] Social History Tobacco Use Types Packs/Day [...] Score 1 02/07/2024 [facility] - [...] exercise at this level? 30 min 03/28/2024 Ariton Depression Scale Answer Date Recorded Ariton Depression Score 5 01/14/2021 Last EPDS Self [...] CDT Legal Sex Female 4:13 AM [employer] Gender Identity Female 03/02/2021 5:45 PM CDT [...] 11/21/2024 7:00 AM CDT Office [facility] [address] [phone] Maru Man PA-C [address] [address] 12/20/2024 2:30 PM CDT Office Visit [facility] [address] [place] [address] Esha Grimm PA-C [id number] [place] [phone] 04/16/2025 11:00 AM CDT Virtual Visit [facility] [address] [phone] Meredith Carrera PA-C [address] [place] [address] [phone] documented as of this encounter Visit Diagnoses Not on filedocumented in this encounter Additional Health Concerns Infection Onset Date Last Indicated Resolved Time Rule Out COVID-19 10/04/2024 10/04/2024 10/05/2024 9:42 AM CDT Rule Out COVID-19 11/20/2024 11/20/2024 Assessment Noted Time PHQ-9 Depression Total Score: 3 02/07/20 24 9:33 AM CDT documented as of this encounter Care Teams Gold Reclaimer Relationship Specialty Start Date End Date Esha Grimm PA-C [address] [place] [address] PCP - General Family Medicine 05/04/23 Diana Desir, [facility] [address] [place] [address] Pharmacist Pharmacist 04/17/21 Rain Galaviz PA-C [address] [place] [address] [address] [place] [id number] Physician Site Inspector Dermatology 04/28/21 Tavia Wyatt MD [address] [place] [address] [address] [place] [id number] Dermatology 07/14/21 Erica Farrell APRN HOUSING INSPECTOR [address] [place] [id number] Nurse Practitioner Cardiovascular Disease 09/09/21 Rich Barrett MD [address] [place] [address] Physician Ophthalmology 01/21/22 Neil Kent MD [address] [place], [place] [phone] Dermatology 02/24/22 [facility] [address] [place] [address] Assigned MTM Pharmacist 04/07/22 Livan Sharif MD [address] [place] [id number] Cardiovascular Disease 05/14/22 Catherine Cm MD [address] [facility] [address] [place] [address] Cardiovascular Disease 07/21/22 Valery Veronica PA-C [address] [place] [address] Physician Site Inspector Dermatology 07/21/22 Brea Quinn APRN HOUSING INSPECTOR [address] [place] [address] Nurse Practitioner Dermatology 09/21/22 Brea Quinn APRN HOUSING INSPECTOR [address] [place] [address] Assigned Surgical Provider 10/09/22 05/01/24 [place] [address] [facility] [address] [place] [address] Assigned Musculoskeletal Provider 10/09/22 05/01/24 Alfonso Renteria MD [address] [facility] [address] [place], [place] [address] Assigned Neuroscience Provider 04/02/23 09/29/24 Radha Lomeli APRN HOUSING INSPECTOR [address] [facility] [address] [place] [id number] Assigned Heart and Vascular Provider 05/28/23 Jelena David OD [address] [place] [address] Ophthalmology 06/15/23 Esha Grimm PA-C [address] [facility] [place] [phone] Assigned PCP 07/16/23 Valery Veronica PA-C [address] [place] [address] Physician Site Inspector Dermatology 09/19/23 Rey Tay MD [address] [place] [address] MD Gastroenterology 09/20/23 Rocky Zepeda DO [address] [place] [address] 556145 Physician Gastroenterology 09/20/23 Philip Dumont MD [address] [place] [address] [phone] Physician Ophthalmology 09/22/23 Meredith Carrera PA-C [address] [place] [address] Assigned Gastroenterology Provider 11/01/23 Neil Kent MD [address] [address] Dermatology 11/02/23 [place] [address] [place] [address] Neurological Surgery 12/26/23 Audrey Waite PA-C [address] [place] [address] [phone] Physician Site Inspector Dermatology 02/28/24 Valery Veronica PA-C [id number] [place] [address] Physician Site Inspector Dermatology 04/10/24 Herminia Hatch MD [address] [place] [address] [id number] Assigned Rheumatology Provider 07/02/24 Jelena David OD [address] [place] [address] [place] [address] Ophthalmology 08/30/24 [place] [address] [place] [address] Assigned Neuroscience Provider 09/30/24 Maru Man PA-C [address] [place] [address] Physician Site Inspector Dermatology 10/03/24 Maru Man PA-C [address] [place] [address] Physician Site Inspector Dermatology 10/22/24 Jelena David OD [address] [place] [address] [place] [address] Assigned Surgical Provider 10/31/24 documented as of this encounter
--- OUTSIDE RECORDS SUMMARY | 2024-11-21 05:08 | XMS_ITS | Encounter Summary ---
Author Organization [facility] Address [address] [place] [address] Care Team Providers Care Police Magistrate Name Role Phone Diana Desir Stanislav [facility] Unavailable [phone] Rain Galaviz PA-C Unavailable Tavia Wyatt MD Unavailable Erica Farrell APRN FLOOR WINDER Unavailable Rich Barrett MD Unavailable [phone] Neil Kent MD Unavailable ThangKendrickDiana Stanislav [facility] Unavailable [phone] Livan Sharif MD Unavailable Catherine Cm MD Unavailable + Valery Veronica-C Unavailable Brea Quinn METAL RIVET MACHINE OPERATOR FLOOR WINDER Unavailable Esha Grimm PA-C Primary Care Provider Radha Lomeli APRN FLOOR WINDER Unavailable Jelena David OD Unavailable [phone] Esha Grimm PA-C Unavailable [phone] Valery Veronica PA-C Unavailable Rey Tay MD Unavailable Duane Rocky Unavailable Philip Dumont MD Unavailable [phone] PinoMeredith paez PA-C Unavailable [phone] Neil Kent MD Unavailable Juan Pablo Emmanuel MD Unavailable [phone] Audrey Waite PA-C Unavailable [phone] Valery Veronica PA-C Unavailable [phone] Herminia Hatch MD Unavailable Jelena David OD Unavailable Juan Pablo Emmanuel MD Unavailable [phone] Maru ManC Unavailable [phone] Maru Man PA-C Unavailable [phone] Encounter Details Date Type Department Care Team [...] Answer Date Recorded PHQ-2 Score 1 10/24/2024 [facility] - Occupational Stress Questionnaire [...] exercise at this level? 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 [address] [phone] Maru Man PA-C [address] [place] [address] 12/20/2024 2:30 PM CDT Office Visit [facility] [address] [place] [address] Esha Grimm PA-C [address] [place] [phone] 04/16/2025 11:00 AM CDT Virtual Visit [facility] [address]th [place] [phone] Meredith Carrera PA-C 909 [place] [address] documented as of this encounter Visit Diagnoses Not on filedocumented in this encounter Additional Health Concerns Assessment Noted Time PHQ-9 Depression Total Score: 5 10/25/19 25 10:38 AM CDT documented as of this encounter Care Teams Police Magistrate Relationship Specialty Start Date End Date Esha Grimm PA-C [address] [place] [address] PCP - General Family Medicine 05/04/23 Diana Desir, [facility] [address] [place] [address] Pharmacist Pharmacist 04/17/21 Rain Galaviz PA-C [address] [place] [address] [address] [facility] [place] [address] Physician Home Theater Specialist Dermatology 04/28/21 Tavia Wyatt MD [address] [place] [address] [address] [place] [address] Dermatology 07/14/21 Erica Farrell APRN FLOOR WINDER [address] [place] [address] Nurse Practitioner Cardiovascular Disease 09/09/21 Rich Barrett MD [address] [place] [address] Physician Ophthalmology 01/21/22 Neil Kent MD [address] [place], [place] [address] Dermatology 02/24/22 Diana Desir, [facility] 3033 [place] [address] Assigned MTM Pharmacist 04/07/22 Livan Sharif MD [address] [place], [place] [address] Cardiovascular Disease 05/14/22 Catherine Cm MD [address] [place], [place] 858035 Cardiovascular Disease 07/21/22 Valery Veronica PA-C 909 [place], [place] [address] Physician Home Theater Specialist Dermatology 07/21/22 Brea Quinn APRN FLOOR WINDER 500 [place] [address] Nurse Practitioner Dermatology 09/21/22 Radha Lomeli APRN FLOOR WINDER [address] [place], [place] [address] Assigned Heart and Vascular Provider 05/28/23 Jelena David OD [address] [facility] [place] [address] Ophthalmology 06/15/23 Esha Grimm, PA-C [address] [place] [address] Assigned PCP 07/16/23 Valery Veronica PA-C [address] [place] [address] Physician Home Theater Specialist Dermatology 09/19/23 Rey Tay MD [address] [place] [address] MD Gastroenterology 09/20/23 Rocky Zepeda DO [address] [place] [address] Physician Gastroenterology 09/20/23 Philip Dumont MD [address] [place] [address] Physician Ophthalmology 09/22/23 Meredith Carrera PA-C [address] [place] [address] 411535 Assigned Gastroenterology Provider 11/01/23 Neil Kent MD [address] [address] Dermatology 11/02/23 [place] [address] [place] [address] Neurological Surgery 12/26/23 Audrey Waite PA-C [address] [place] [address] Physician Home Theater Specialist Dermatology 02/28/24 Valery Veronica PA-C [address] [place] [address] Physician Home Theater Specialist Dermatology 04/10/24 Herminia Hatch MD [facility]5 [place], [place] 6[address] Assigned Rheumatology Provider 07/02/24 Jelena David OD [address] [facility] [place] [address] Ophthalmology 08/30/24 [place] [address] [place] [address] Assigned Neuroscience Provider 09/30/24 Maru Man PA-C [address] [place] [address] Physician Home Theater Specialist Dermatology 10/03/24 Maru Man PA-C [address] [place] [address] Physician Home Theater Specialist Dermatology 10/22/24 documented as of this encounter
--- OUTSIDE RECORDS SUMMARY | 2024-11-21 05:08 | XMS_ITS | Encounter Summary ---
Author Organization [facility] Address [address] [place] [address] Care Team Providers Care Media Consultant Outside Sales Name Role Phone Lita Oseguera Unavailable Unavailable Marija Edgar APRN CONTENT PRODUCER Primary Care Provider + Chanelle Mccann APRN CNM Unavailab le Kyara De La Fuente RN Unavailable [phone] Marija Edgar APRN CONTENT PRODUCER Unavailable Mynor Broussard MD Unavailable [phone] Keisha Dotson MD Unavailable Galo Burrell MD Unavailable Unavailable Cristina Wood Unavailable Diana Desir [facility] Unavailable Rain Galaviz PA-C Unavailable Summer Lara MD Unavailable [phone] Summer Lara MD Unavailable [phone] Summer Lara MD Unavailable [phone] Tavia Wyatt MD Unavailable [phone] Johnny Murillo MD Unavailable Erica Farrell APRN CONTENT PRODUCER Unavailable VikasTeresita [facility] Unavailable Tavia Wyatt MD Unavailable Diana Desir [facility] Unavailable Rich Barrett MD Unavailable [phone] Neil Kent MD Unavailable Roney Story DP Unavailable Erica Farrell APRN CONTENT PRODUCER Unavailable Diana Desir [facility] Unavailable Jelena David Unavailable Galo Burrell MD Unavailable Unavailable Livan Sharif MD Unavailable Livan Sharif MD Unavailable Catherine Cm MD Unavailable + Valery Veronica-C Unavailable [phone] Catherine Cm MD Unavailable + Johnny Murillo MD Unavailable [phone] Brea Quinn CRYSTAL ATTACHER CONTENT PRODUCER Unavailable [phone] Brea Quinn CRYSTAL ATTACHER CONTENT PRODUCER Unavailable [phone] Jose Francisco Johnson MD Unavailable Livan Sharif MD Unavailable Catherine Cm MD Unavailable + Sydnie Martinez RN Unavailable Unavailable Alfonso Renteria MD Unavailable Esha Grimm PA-C Primary Care Provider Cheng Todd PA-C Unavailable Radha Lomeli CRYSTAL ATTACHER CONTENT PRODUCER Unavailable Jelena David OD Unavailable [phone] Pao Joseph RN Unavailable Unavailable Esha Grimm PA-C Unavailable [phone] Valery Veronica PA-C Unavailable Rey Tay [...] Contact Info) Description 01/06/[address] [facility] - Surgical Specialties Service Line [address] [place] [address] Saurabh Marcial MD [address] [facility] 200 [place] [address] Indication for care in labor [...] often do you attend memorial healthcare or denominational services? 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 SPECIALIST Gender Identity Female 03/02/2021 5:45 PM [...] Description 11/21/2024 7:00 AM CDT Office Visit [facility] [place] [address] [phone] Maru Man PA-C [address] [address] 12/20/2024 2:30 PM CDT Office Visit [facility] [address] [place] [address] Esha Grimm PA-C [address] [place] [address] 04/16/2025 11:00 AM CDT Virtual Visit [facility] [address] 4th [place] [address] Meredith Carrera PA-C [address] [place] [address]755 documented as of this encounter Results * Asymptomatic COVID-19 Virus (Coronavirus) by PCR (01/09/2021 10:44 AM CDT) COVID-19 Virus PCR to [facility] - Source Nasopharyngeal 01/09/2021 10:45 AM CDT [facility] COVID-19 Virus PCR to [facility] - Result Test received-See reflex to IDDL test SARS CoV2 (COVID-19) Virus RT-PCR 01/09/2021 6:32 PM CDT [facility], [facility] Specimen from nasopharyngeal structure (specimen) 01/09/2021 10:44 AM CDT 01/09/2021 10:45 AM CDT us Saurabh Marcial MD LAB - MICRO GENERAL ORDSia HERRERA Final Result [facility], [facility] [address] [place] [address], [facility] [address] [place] [address], [facility] [phone] documented in this encounter Visit Diagnoses Diagnosis Indication for care in labor and delivery, antepartum- Primary Unspecified indication for care or intervention related to labor and delivery, antepartum documented in this encounter Additional Health Concerns Infection Onset Date Last Indicated Resolved Time Rule Out COVID-19 05/11/2021 05/11/2021 05/13/2021 10:18 AM CDT Rule Out COVID-19 07/13/2021 07/13/2021 07/14/2021 3:04 PM CUSTOMER SERVICE SPECIALIST Rule Out COVID-19 07/18/2021 07/18/2021 07/20/2021 1:56 PM CUSTOMER SERVICE SPECIALIST COVID-19 07/18/2021 07/18/2021 08/08/2021 11:3 9 PM CUSTOMER SERVICE SPECIALIST Rule Out COVID-19 12/18/2021 12/18/2021 12/19/2021 11:34 AM CDT Rule Out COVID-19 02/24/2022 02/24/2022 02/25/2022 1:08 PM CDT Rule Out COVID-19 04/26/2022 04/26/2022 04/26/2022 6:47 AM CDT Rule Out COVID-19 05/17/2022 05/17/2022 05/17/2022 10:20 PM CUSTOMER SERVICE SPECIALIST Rule Out COVID-19 06/09/2022 06/09/2022 06/09/2022 9:35 AM CUSTOMER SERVICE SPECIALIST COVID-19 06/09/2022 06/09/2022 06/30/2022 11:4 1 PM CUSTOMER SERVICE SPECIALIST Rule Out COVID-19 11/10/2022 11/10/2022 11/11/2022 [...] documented as of this encounter Care Teams Media Consultant Outside Sales Relationship Specialty Start Date End Date Marija Edgar APRN CONTENT PRODUCER PCP - General Nurse Practitioner 04/30/20 04/14/23 Esha Grimm PA-C [address] [place] [phone] PCP - General Family Medicine 05/04/23 Lita Oseguera Personal Advocate & Liaison (PAL) 02/28/20 03/27/23 Chanelle Mccann APRN CNM [address]06 [facility] 200 [place] [address] Assigned OBGYN Provider 05/02/2005/09 Kyara De La Fuente, RN Specialty Pinking Sewing Machine Operator Neurology 06/04/20 03/05/21 Marija Edgar APRN CONTENT PRODUCER Assigned PCP 06/08/20 04/29/23 Mynor Broussard MD [address] [facility] 500 [place] [address] Assigned Surgical Provider 06/01/20 11/28/21 Keisha Dotson MD 909 [place] [address] Assigned Neuroscience Provider 06/04/20 04/01/23 Galo Burrell MD Assigned Heart and Vascular Provider 10/05/20 04/02/22 Cristina Wood Financial Resource Worker 02/09/21 02/09/21 [facility] 3033 [place] [address] Pharmacist Pharmacist 04/17/21 Rain Galaviz PA-C [address] [place] [address] [address] [place], [place] [phone] Physician Gold Marker Dermatology 04/28/21 Summer Lara MD [address] [place] [address] 096604 Assigned OBGYN Provider 05/10/2105/23 Summer Lara MD [address] [place] [address] 205234 Assigned OBGYN Provider 05/31/21 Summer Lara MD [address] [place] [address] 213914 Assigned OBGYN Provider 05/24/2105/30 Tavia Wyatt MD [address] [place] [address] 519074 Dermatology 07/14/21 Johnny Murillo MD [address] [place] [address] Assigned Musculoskeletal Provider 08/30/21 03/17/22 Erica Farrell APRN CONTENT PRODUCER 6[address] [facility] [address] [place], [place] 7[address] Nurse Practitioner Cardiovascular Disease 09/09/21 Teresita Bean [facility] [address] [place] [phone] Pharmacist Pharmacist 09/24/21 09/29/21 Tavia Wyatt MD [address] [place] [address] Assigned Surgical Provider 11/29/21 05/07/22 [facility] 30[address] [place], [place] 086456 Assigned MTM Pharmacist 01/02/22 Rich Barrett MD [address] [place] [address] 107536 Physician Ophthalmology 01/21/22 Neil Kent MD 500 [place], [place] 403455 Dermatology 02/24/22 Roney Story DPM [address] [facility] [address] [place], [place] 310827 Assigned Musculoskeletal Provider 03/20/22 08/13/22 Erica Farrell APRN CONTENT PRODUCER 1700 [place] [address] Assigned Heart and Vascular Provider 04/03/22 04/16/22 Diana Desir, [facility] [address] [place] [address] Assigned MTM Pharmacist 04/07/22 Jelena David OD [address] [place] [address] Assigned Surgical Provider 05/08/22 10/08/22 Galo Burrell MD Assigned Heart and Vascular Provider 04/17/22 06/11/22 Livan Sharif MD [address] [place] [address] Cardiovascular Disease 05/14/22 Livan Sharif MD [address] [place] [address] Assigned Heart and Vascular Provider 06/12/22 07/23/22 Catherine Cm MD [address] [place] [address] Cardiovascular Disease 07/21/22 Valery Veronica PA-C 909 [place] [address] Physician Gold Marker Dermatology 07/21/22 Catherine Cm MD [address] [place] [address] Assigned Heart and Vascular Provider 07/24/22 11/05/22 Johnny Murillo MD [address] [facility] [address] [place] [address] Assigned Musculoskeletal Provider 08/14/22 10/08/22 Brea Quinn APRN CONTENT PRODUCER 500 [facility], [place] 734305 Nurse Practitioner Dermatology 09/21/22 Brea Quinn APRN CONTENT PRODUCER 6401 [facility] [place] [address] Assigned Surgical Provider 10/09/22 05/01/24 [place] [address] [place] [address] 940787 Assigned Musculoskeletal Provider 10/09/22 05/01/24 Livan Sharif MD [address] [facility] S [facility] [address] [place] [address] Assigned Heart and Vascular Provider 11/06/22 11/12/22 Catherine Cm MD [address] [facility] [address] [place] [address] Assigned Heart and Vascular Provider 11/13/22 05/27/23 Sydnie Martinez RN Personal Advocate & Liaison (PAL) Family Medicine 03/28/23 07/31/23 Alfonso Renteria MD 5775 [facility] [address] 200 [place] [address] Assigned Neuroscience Provider 04/02/23 09/29/24 Cheng Todd PA-C [address] [place] [address] Assigned PCP 04/30/23 07/15/23 Radha Lomeli APRN CONTENT PRODUCER 6[address] [facility] [address] [place] [address] Assigned Heart and Vascular Provider 05/28/23 Jelena David OD [address] [place] [address] Ophthalmology 06/15/23 Pao Joseph, VJ Personal Advocate & Liaison (PAL) Nurse 08/01/23 11/07/23 Esha Grimm PA-C [address] [place] [address] Assigned PCP 07/16/23 Valery Veronica PA-C [address] [place] [address] Physician Gold Marker Dermatology 09/19/23 Rey Tay MD [address] [place] [address] 327745 Gastroenterology 09/20/23 Rocky Zepeda DO [address] [place] [address] Physician Gastroenterology 09/20/23 Philip Dumont MD [address] [place] [address] Physician Ophthalmology 09/22/23 Meredith Carrera PA-C [address] [place] [address] Assigned Gastroenterology Provider 11/01/23 Neil Kent MD [address] [address] Dermatology 11/02/23 [place] [address] [place], [place] 3379[address] Neurological Surgery 12/26/23 Audrey [place]ite PA-C [address] [place] [address] Physician Gold Marker Dermatology 02/28/24 Valery Veronica PA-C [address] [place] [address] Physician Gold Marker Dermatology 04/10/24 Herminia Hatch MD [address] [place] [address] 78994125 Assigned Rheumatology Provider 07/02/24 Jelena David OD [address] [place] [address] [place] [address] Ophthalmology 08/30/24 [place] [address] [place] 228797 Assigned Neuroscience Provider 09/30/24 Maru Man PA-C [address] [place] [address] Physician Gold Marker Dermatology 10/03/24 Maru Man PA-C [address] [place] [address] Physician Gold Marker Dermatology 10/22/24 Jelena David OD [address] [place] [address] [place] [address] Assigned Surgical Provider 10/31/24 documented as of this encounter
--- OUTSIDE RECORDS SUMMARY | 2024-11-21 05:08 | XMS_ITS | Encounter Summary ---
Author Organization [facility] Address [address] [place] [address] Care Team Providers Care 21 Dealer Name Role Phone Diana Desir Stanislav [facility] Unavailable Rain Galaviz PA-C Unavailable Tavia Wyatt MD Unavailable Erica Farrell APRN INHALATION THERAPIST Unavailable Rich Barrett MD Unavailable [phone] Neil [place] MD Unavailable ThangKendrickDiana Stanislav [facility] Unavailable [phone] Livan Sharif MD Unavailable Catherine Cm MD Unavailable + Valery Veronica-C Unavailable Brea Quinn BED OPERATOR INHALATION THERAPIST Unavailable Esha Grimm PA-C Primary Care Provider Radha Lomeli APRN INHALATION THERAPIST Unavailable Jelena David OD Unavailable [phone] Esha Grimm PA-C Unavailable [phone] Valery Veronica PA-C Unavailable Rey Tay MD Unavailable Duane Rockyanne [facility] Unavailable Philip Dumont MD Unavailable [phone] Meredith Carrera PA-C Unavailable [phone] Neil Kent MD Unavailable Juan Pablo Emmanuel MD Unavailable [phone] Audrey Waite PA-C Unavailable [phone] Valery Veronica-C Unavailable [phone] Herminia Hatch MD Unavailable Jelena David OD Unavailable [phone] Juan Pablo Emmanuel MD Unavailable [phone] Maru ManC Unavailable [phone] Encounter Details Date Type Department Care Team [...] exercise at this level? 20 min 05/07/2024 [place] Depression Scale Answer Date Recorded [place] Depression Score 5 01/14/2021 Last EPDS Self [...] PM CDT Legal Sex Female 4:13 AM CALL WORKER PERSON Gender Identity Female 03/02/2021 5:45 PM CDT Sexual Orientation Straight 02/28/2020 12 :51 AM CDT documented as of this encounter Plan of Treatment Upcoming Encounters Date Type Department Care Team (Late st Contact Info) Description 11/21/2024 7:00 AM CDT Office Visit [facility] [address] [phone] Maru Man PA-C [address] 885270 12/20/2024 2:30 PM CDT Office Visit [facility] [address] [place] [phone] Esha Grimm PA-C [address] [place] [address] 04/16/2025 11:00 AM CDT Virtual Visit [facility] Gastroenterology [address]th [place] [phone] Meredith Carrera PA-C 909 [place] [address] documented as of this encounter Visit Diagnoses Not on filedocumented in this encounter Additional Health Concerns Assessment Noted Time PHQ-9 Depression Total Score: 3 02/07/20 24 9:33 AM CDT documented as of this encounter Care Teams 21 Dealer Relationship Specialty Start Date End Date Esha Grimm PA-C [address] [place] [address] PCP - General Family Medicine 05/04/23 [facility] 3033 [place] [address] Pharmacist Pharmacist 04/17/21 Rain Galaviz PA-C [address] [place] [address] [address] [place] [address] Physician Drain Technician Dermatology 04/28/21 Tavia Wyatt MD [address] [place] [address] [address] [place] [address] Dermatology 07/14/21 Erica Farrell APRN INHALATION THERAPIST [address] [place] [address] Nurse Practitioner Cardiovascular Disease 09/09/21 Rich Barrett MD [address] [place] [address] Physician Ophthalmology 01/21/22 Neil Kent MD 500 [place] [address] Dermatology 02/24/22 Diana Desir, [facility] [address] [place] [address] Assigned MTM Pharmacist 04/07/22 Livan Sharif MD [address] [place] [address] Cardiovascular Disease 05/14/22 Catherine Cm MD [address] [place], [place] 923055 Cardiovascular Disease 07/21/22 Valery Veronica, PA-C [address] [place] [address] Physician Drain Technician Dermatology 07/21/22 Brea Quinn APRN INHALATION THERAPIST 500 [place] [address] Nurse Practitioner Dermatology 09/21/22 Radha Lomeli APRN INHALATION THERAPIST [address] [place], [place] 114[address]05 Assigned Heart and Vascular Provider 05/28/23 Jelena David OD 3305 [facility] [place] [address] Ophthalmology 06/15/23 Esha Grimm PAUcheC [address] [place] [address] Assigned PCP 07/16/23 Valery Veronica PA-C 9 [place], [place] 233605 Physician Drain Technician Dermatology 09/19/23 Rey Tay MD [address] [place] [address] MD Gastroenterology 09/20/23 Rocky Zepeda DO [address] [place] [address] 191955 Physician Gastroenterology 09/20/23 Philip Dumont MD [address] [place] [address] 777025 Physician Ophthalmology 09/22/23 Meredith Carrera PA-C [address] [place] [address] 703545 Assigned Gastroenterology Provider 11/01/23 Neil Kent MD [address] [place] [address] Dermatology 11/02/23 [place] [address] [address] Neurological Surgery 12/26/23 Audrey Waite PA-C [address] [place] [address] Physician Drain Technician Dermatology 02/28/24 Valery Veronica PA-C [address] [place] [address] Physician Drain Technician Dermatology 04/10/24 Herminia Hatch MD [facility]5 [place] [address] Assigned Rheumatology Provider 07/02/24 Jelena David OD [facility] [facility] [place] [address] Ophthalmology 08/30/24 [place] [address] [address] Assigned Neuroscience Provider 09/30/24 Maru Man PA-C [address] [place] [address] Physician Drain Technician Dermatology 10/03/24 documented as of this encounter
--- OUTSIDE RECORDS SUMMARY | 2024-11-21 05:08 | XMS_ITS | Encounter Summary ---
Author Organization [facility] Address [address] [place] [address] Care Team Providers Care Petrographer Name Role Phone Lita Oseguera Unavailable Unavailable Marija Edgar APRN PROMOTION MANAGER Primary Care Provider + Chanelle Mccann WAREHOUSE COORDINATOR CNM Unavailab le Kyara De La Fuente RN Unavailable [phone] Marija Edgar APRN PROMOTION MANAGER Unavailable Mynor Broussard MD Unavailable [phone] Keisha Dotson MD Unavailable Stacey Briones BASIN FINISH OPERATOR TIG WELDER Unavailable Mary Mejia Unavailable Unavailable Galo Burrell MD Unavailable Unavailable Cristina Wood Unavailable Lesley Guillermo CHW Unavailable Meredith Bedoya Unavailable Unavailable Cristina oWod Unavailable Diana Desir [facility] Unavailable [phone] Rain Galaviz PA-C Unavailable Summer Lara MD Unavailable [phone] Summer Lara MD Unavailable [phone] Summer Lara MD Unavailable [phone] Tavia Wyatt MD Unavailable [phone] Johnny Murillo MD Unavailable [phone] Erica Farrell APRN PROMOTION MANAGER Unavailable Teresita Bean [facility] Unavailable Tavia Wyatt MD Unavailable [phone] Diana [place] [facility] Unavailable [phone] Rich Barrett MD Unavailable Neil Kent MD Unavailable Roney Story DPM Unavailable Bud, Erica Guidry WAREHOUSE COORDINATOR PROMOTION MANAGER Unavailable Diana Desir [facility] Unavailable [phone] Jelena David Radha Unavailable Galo Burrell MD Unavailable Unavailable Livan Sharif MD Unavailable + Livan Sharif MD Unavailable + Catherine Cm MD Unavailable + Valery Veronica PA-C Unavailable [phone] Catherine Cm MD Unavailable + Johnny Murillo MD Unavailable [phone] Quinn WAREHOUSE COORDINATOR PROMOTION MANAGER Unavailable [phone] Brea Quinn WAREHOUSE COORDINATOR PROMOTION MANAGER Unavailable [phone] Jose Francisco Johnson MD Unavailable Livan Sharif MD Unavailable Catherine Cm MD Unavailable + Sydnie Martinez RN Unavailable Unavailable Alfonso Renteria MD Unavailable [phone] Esha Grimm PA-C Primary Care Provider Cheng Todd PA-C Unavailable Radha Lomeli APRN PROMOTION MANAGER Unavailable Jelena David OD Unavailable Pao Joseph RN Unavailable Unavailable Esha Grimm PA-C Unavailable [phone] Valery Veronica PA-C Unavailable [phone] Rey Tay MD Unavailable Rocky Zepeda DO Unavailable Philip Dumont MD Unavailable Meredith Carrera PA-C Unavailable [phone] Neil Kent MD Unavailable Juan Pablo Emmanuel MD Unavailable Audrey Waite PA-C Unavailable Valery Veronica PA-C Unavailable Herminia Hatch MD Unavailable Jelena David OD Unavailable Juan Pablo Emmanuel MD Unavailable [phone] Maru Man PA-C Unavailable [phone] Maru Man PA-C Unavailable Jelena David OD Unavailable [phone] Encounter Details Date Type Department Care Team (Late st Contact Info) Description 10/02/2020 [facility] Care Coordination [facility] [address] [place] [address] Stacey Briones, [facility] Social History Tobacco Use Types Packs/Day [...] Answer Date Recorded PHQ-2 Score 3 09/29/2020 [facility] - Occupational Stress [...] in a custodial (including now)? No 08/11/2020 Education Answer Date Recorded What is the highest level of school you have completed or the highest degree you have received? 12th grade 08/07/2020 Comments Yes Sex and Gender Information Value Date Recorded Sex Assigned at Female 03/02/2021 5:45 PM CDT Legal Sex Female 4:13 AM SHIPPING CLERK PACKING Gender Identity Female 03/02/2021 5:45 PM CDT [...] 7:00 AM CDT Office Visit [facility] [address] [phone] Maru Man PA-C [address] [address] 12/20/2024 2:30 PM CDT Office Visit [facility] [address] [place] [address] [phone] Esha Grimm PA-C [id number] [place] [address] [phone] 04/16/2025 11:00 AM CDT Virtual Visit [facility] [address] [phone] Meredith Carrera PA-C [address] [place] [address] documented as of this encounter Visit Diagnoses Not on filedocumented in this encounter Additional Health Concerns Infection Onset Date Last Indicated Resolved Time Rule Out COVID-19 11/05/2020 11/05/2020 11/06/2020 1:09 PM CDT Rule Out COVID-19 05/11/2021 05/11/2021 05/13/2021 10:18 AM CDT Rule Out COVID-19 07/13/2021 07/13/2021 07/14/2021 3:04 PM SHIPPING CLERK PACKING Rule Out COVID-19 07/18/2021 07/18/2021 07/20/2021 1:56 PM SHIPPING CLERK PACKING COVID-19 07/18/2021 07/18/2021 08/08/2021 11:3 9 PM SHIPPING CLERK PACKING Rule Out COVID-19 12/18/2021 12/18/2021 12/19/2021 11:34 AM CDT Rule Out COVID-19 02/24/2022 02/24/2022 02/25/2022 1:08 PM CDT Rule Out COVID-19 04/26/2022 04/26/2022 04/26/2022 6:47 AM CDT Rule Out COVID-19 05/17/2022 05/17/2022 05/17/2022 10:20 PM SHIPPING CLERK PACKING Rule Out COVID-19 06/09/2022 06/09/2022 06/09/2022 9:35 AM SHIPPING CLERK PACKING COVID-19 06/09/2022 06/09/2022 06/30/2022 11:4 1 PM SHIPPING CLERK PACKING Rule Out COVID-19 11/10/2022 11/10/2022 11/11/2022 12:17 [...] documented as of this encounter Care Teams Petrographer Relationship Specialty Start Date End Date Marija Edgar APRN CNP PCP - General Nurse Practitioner 04/30/20 04/14/23 Esha Grimm PA-C [address] [place] [phone] PCP - General Family Medicine 05/04/23 Lita Oseguera Personal Advocate & Liaison (PAL) 02/28/20 03/27/23 Chanelle Mccann APRN CNM [id number] [place], [facility] 200 [place], [place] [address] Assigned OBGYN Provider 05/02/2005/09 Kyara De La Fuente, RN Specialty Precast Molder Neurology 06/04/20 03/05/21 Marija Edgar APRN PROMOTION MANAGER Assigned PCP 06/08/20 04/29/23 Mynor Broussard MD [address] [facility] 500 [place], [place] 466295 Assigned Surgical Provider 06/01/20 11/28/21 Keisha Dotson MD 9 [place], [place] 868405 Assigned Neuroscience Provider 06/04/20 04/01/23 Stacey Briones, [facility] Lead Precast Molder Primary Care - CC 08/11/2012/30 Mary Mejia Financial Resource Worker 09/02/20 10/06/20 Galo Burrell MD Assigned Heart and Vascular Provider 10/05/20 04/02/22 Cristina Wood Financial Resource Worker 10/07/20 10/14/20 Lesley Guillermo, [facility] Community Health Worker 10/23/2012/30 Meredith Bedoya Financial Resource Worker 10/23/20 11/23/20 Cristina Wood Financial Resource Worker 02/09/21 02/09/21 Diana Desir, [facility] [address] [facility] [place] [address] Pharmacist Pharmacist 04/17/21 Rain Galaviz PA-C [address] [place] [address] [place] [address] Physician Public Relations Dermatology 04/28/21 Summer Lara MD [address] [place] [address] Assigned OBGYN Provider 05/10/2105/23 Summer Lara MD [address] [place], [place] 7079[address] Assigned OBGYN Provider 05/31/21 Summer Lara MD [address] [place] [address] Assigned OBGYN Provider 05/24/2105/30 Tavia Wyatt MD [address] [place], [place] [address] Dermatology 07/14/21 Johnny Murillo MD [address] [facility] [address] [place] [address] Assigned Musculoskeletal Provider 08/30/21 03/17/22 Erica Farrell APRN PROMOTION MANAGER [address]405 [facility] [address] [place], [place] [address] Nurse Practitioner Cardiovascular Disease 09/09/21 Teresita Bean [facility] [address] [place] [address] Pharmacist Pharmacist 09/24/21 09/29/21 Tavia Wyatt MD [address] [place] [address] Assigned Surgical Provider 11/29/21 05/07/22 Diana Desir, [facility] 3033 [place] [address] Assigned MTM Pharmacist 01/02/22 Rich Barrett MD [address] [place], [place] [address] Physician Ophthalmology 01/21/22 Neil Kent MD 500 [place] [address] Dermatology 02/24/22 Roney Story DPM [address] [facility] 300 [place] [address] Assigned Musculoskeletal Provider 03/20/22 08/13/22 Erica Farrell APRN PROMOTION MANAGER [address]00 [place] [address] Assigned Heart and Vascular Provider 04/03/22 04/16/22 Diana Desir, [facility] [address] [place] [address] Assigned MTM Pharmacist 04/07/22 Jelena David OD [address] [facility] [place] [address] Assigned Surgical Provider 05/08/22 10/08/22 Galo Burrell MD Assigned Heart and Vascular Provider 04/17/22 06/11/22 Livan Sharif MD [address] [place], [place] [address] Cardiovascular Disease 05/14/22 Livan Sharif MD [address] [place] 455925 Assigned Heart and Vascular Provider 06/12/22 07/23/22 Catherine Cm MD [address] [place] 54[address] Cardiovascular Disease 07/21/22 Valery Veronica, PA-C [address] [place], [place] [address] Physician Public Relations Dermatology 07/21/22 Catherine Cm MD [address] [place] 339195 Assigned Heart and Vascular Provider 07/24/22 11/05/22 Johnny Murillo MD [facility] [address] [address] Assigned Musculoskeletal Provider 08/14/22 10/08/22 Brea Quinn APRN PROMOTION MANAGER 500 [place] [address] Nurse Practitioner Dermatology 09/21/22 Brea Quinn APRN PROMOTION MANAGER 64[address] [facility] [place] [address] Assigned Surgical Provider 10/09/22 05/01/24 [place] [address] [facility] 300 [place] [address] Assigned Musculoskeletal Provider 10/09/22 05/01/24 Livan Sharif MD [address] [facility] [address] [place] [address] Assigned Heart and Vascular Provider 11/06/22 11/12/22 Catherine Cm MD 6405 [facility] [address] [place] [address] Assigned Heart and Vascular Provider 11/13/22 05/27/23 Sydnie Martinez RN Personal Advocate & Liaison (PAL) Family Medicine 03/28/23 07/31/23 Alfonso Renteria MD [address] [facility] 200 [place], [place] [address] Assigned Neuroscience Provider 04/02/23 09/29/24 Cheng Todd PA-C [address] [place] [address] [id number] Assigned PCP 04/30/23 07/15/23 Radha Lomeli APRN CNP [address] [place] [address] Assigned Heart and Vascular Provider 05/28/23 Jelena David OD [address] [facility] [place] [address] MD Ophthalmology 06/15/23 Pao Joseph, VJ Personal Advocate & Liaison (PAL) Nurse 08/01/23 11/07/23 Esha Grimm PA-C [address] [place] [phone] Assigned PCP 07/16/23 Valery Veronica PA-C [address] [place] [address] 392225 Physician Public Relations Dermatology 09/19/23 Rey Tay MD [address] [place] [address] 952715 MD Gastroenterology 09/20/23 Rocky Zepeda DO [address] [place] [address] 226535 Physician Gastroenterology 09/20/23 Philip Dumont MD [address] [place] [address] 481545 Physician Ophthalmology 09/22/23 Meredith Carrera PA-C [address] [place] [address] Assigned Gastroenterology Provider 11/01/23 Neil Kent MD [address] [place] [address] MD Dermatology 11/02/23 [place] [address] [place] [address] Neurological Surgery 12/26/23 Audrey Waite PA-C [address] [place] [address] Physician Public Relations Dermatology 02/28/24 Valery Veronica PA-C [id number] [place] [address] Physician Public Relations Dermatology 04/10/24 Herminia Hatch MD [facility]5 [place], [place] 70477[address] Assigned Rheumatology Provider 07/02/24 Jelena David OD [address] [facility] [place] [address] Ophthalmology 08/30/24 [place] [address] [place] [address] Assigned Neuroscience Provider 09/30/24 Maru Man PA-C [address] [place] [address] Physician Public Relations Dermatology 10/03/24 Maru Man PA-C [address] [place] [address] Physician Public Relations Dermatology 10/22/24 Jelena David OD [address] [place] [address] [place] [address] Assigned Surgical Provider 10/31/24 documented as of this encounter
--- OUTSIDE RECORDS SUMMARY | 2024-11-21 05:08 | XMS_ITS | Encounter Summary ---
Author Organization [facility] Address [address] [place] [address] Care Team Providers Care Rubber Calender Helper Name Role Phone Diana Desir Stanislav [facility] Unavailable Rain Galaviz PA-C Unavailable Tavia Wyatt MD Unavailable Erica Farrell APRN OPERATIONS CONSULTANT Unavailable Rich Barrett MD Unavailable [phone] Neil Kent MD Unavailable ThangKendrickDiana Stanislav [facility] Unavailable [phone] Livan Sharif MD Unavailable Catherine Cm MD Unavailable + Valery Veronica-C Unavailable Brea Quinn PROCUREMENT ANALYST OPERATIONS CONSULTANT Unavailable Esha Grimm PA-C Primary Care Provider aRdha Lomeli APRN OPERATIONS CONSULTANT Unavailable Jelena David OD Unavailable Esha Grimm PA-C Unavailable [phone] Valery Veronica PA-C Unavailable [phone] Rey Tay MD Unavailable Duane Rocky Unavailable Philip Dumont MD Unavailable [phone] PinoMeredith paez PA-C Unavailable [phone] Neil Kent MD Unavailable Juan Pablo Emmanuel MD Unavailable [phone] Audrey Waite PA-C Unavailable [phone] Valery Veronica PA-C Unavailable [phone] Herminia Hatch MD Unavailable Jelena David OD Unavailable [phone] Juan Pablo Emmanuel MD Unavailable [phone] Maru ManC Unavailable [phone] Maru Man PA-C Unavailable [phone] Encounter Details Date Type Department Care Team [...] Answer Date Recorded PHQ-2 Score 1 10/24/2024 [facility] - [facility]ational [...] exercise at this level? 20 min 05/07/2024 [place] Depression Scale Answer Date Recorded [place] Depression Score 5 01/14/2021 Last EPDS [...] CDT Legal Sex Female 4:13 AM MANAGER CONTRACT Gender Identity Female 03/02/2021 5:45 PM CDT Sexual Orientation Straight 02/28/2020 12 :51 AM CDT documented as of this encounter Plan of Treatment Upcoming Encounters Date Type Department Care Team (Late st Contact Info) Description 11/21/2024 7:00 AM CDT Office Visit [facility] [address] [phone] Maru Man PA-C [address] [place] [address] 12/20/2024 2:30 PM CDT Office Visit [facility] [address] [place] [address] Esha Grimm PA-C [id number] [place] [address] [phone] 04/16/2025 11:00 AM CDT Virtual Visit [facility] [address] [place] [phone] Meredith Carrera PA-C 909 [place] [address] documented as of this encounter Visit Diagnoses Not on filedocumented in this encounter Additional Health Concerns Assessment Noted Time PHQ-9 Depression Total Score: 5 10/25/19 25 10:38 AM CDT documented as of this encounter Care Teams Rubber Calender Helper Relationship Specialty Start Date End Date Esha Grimm PA-C [address] [place] [phone] PCP - General Family Medicine 05/04/23 Diana Desir, [facility] [address] [place] [address] Pharmacist Pharmacist 04/17/21 Rain Galaviz PA-C [address] [place] [address] [address] [facility] [place] [address] Physician Sandblaster Supervisor Dermatology 04/28/21 Tavia Wyatt MD [address] [place] [address] [address] [place] [address] Dermatology 07/14/21 Erica Farrell APRN OPERATIONS CONSULTANT [address] [place] [address] Nurse Practitioner Cardiovascular Disease 09/09/21 Rich Barrett MD [address] [place] [address] Physician Ophthalmology 01/21/22 Neil Kent MD 500 [place], [place] [address]25 Dermatology 02/24/22 Diana Desir, [facility] 3033 [place] [address] Assigned MTM Pharmacist 04/07/22 Livan Sharif MD [address] [address] [place] [address] [address] Cardiovascular Disease 05/14/22 Catherine Cm MD [address] [place], [place] [address] Cardiovascular Disease 07/21/22 Valery Veronica PA-C [address] [place], [place] 4207[address] Physician Sandblaster Supervisor Dermatology 07/21/22 Brea Quinn APRN OPERATIONS CONSULTANT 500 [place] [address] Nurse Practitioner Dermatology 09/21/22 Radha Lomeli APRN OPERATIONS CONSULTANT [address] [place], [place] [address] Assigned Heart and Vascular Provider 05/28/23 Jelena David OD [address] [facility] [address] Ophthalmology 06/15/23 Esha Grimm, PA-C [address] [place] [address]-786583 Assigned PCP 07/16/23 Valery Veronica PA-C [address] [place] [address] Physician Sandblaster Supervisor Dermatology 09/19/23 Rey Tay MD [address] [place] [address] MD Gastroenterology 09/20/23 Rocky Zepeda DO [address] [place] [address] Physician Gastroenterology 09/20/23 Philip Dumont MD [address] [place] [address] Physician Ophthalmology 09/22/23 Meredith Carrera PA-C [address] [place] [address] 596605 Assigned Gastroenterology Provider 11/01/23 Neil Kent MD [address] [address] Dermatology 11/02/23 [place] [address] [place] [address] Neurological Surgery 12/26/23 Audrey Waite PA-C [address] [place] [address] Physician Sandblaster Supervisor Dermatology 02/28/24 Valery Veronica PA-C [address] [place] [address] Physician Sandblaster Supervisor Dermatology 04/10/24 Herminia Hatch MD [facility]5 [place], [place] [address] Assigned Rheumatology Provider 07/02/24 Jelena David OD [address] [place] [address] Ophthalmology 08/30/24 [place] [address] [place] [address] Assigned Neuroscience Provider 09/30/24 Maru Man PA-C [address] [place] [address] Physician Sandblaster Supervisor Dermatology 10/03/24 Maru Man PA-C [address] [place] [address] Physician Sandblaster Supervisor Dermatology 10/22/24 documented as of this encounter
--- OUTSIDE RECORDS SUMMARY | 2024-11-21 05:08 | XMS_ITS | Clinical Summary ---
Author Organization [place] Address [address] [place] [address] Care Team Providers Care Park Warden Name Role Phone Diana Desir [facility] Unavailable Rain Galaviz PA-C Unavailable Tavia Wyatt MD Unavailable Erica Farrell APRN DIE ASSEMBLER Unavailable Rich Barrett MD Unavailable [phone] Neil Kent MD Unavailable ThangKendrickDiana Stanislav [facility] Unavailable [phone] Livan Sharif MD Unavailable Catherine Cm MD Unavailable + Valery Veronica-C Unavailable Brea Quinn PARK RANGER DIE ASSEMBLER Unavailable Esha Grimm PA-C Primary Care Provider Radha Lomeli APRN DIE ASSEMBLER Unavailable Jelena David OD Unavailable Esha Grimm PA-C Unavailable [phone] Jeremías, Valery D PA-C Unavailable Rey Tay MD Unavailable DuaneRocky Unavailable Philip [place] MD Unavailable LoreMeredith mayers PA-C Unavailable Neil Kent MD Unavailable Juan Pablo Emmanuel MD Unavailable Audrey Waite PA-C Unavailable Valery Veronica PA-C Unavailable [phone] Herminia Hatch MD Unavailable Jelena David OD Unavailable [phone] Juan Pablo Emmanuel MD Unavailable Maru Man PA-C Unavailable Maru Man-C Unavailable Jleena David OD Unavailable Allergies Active Allergy Reactions Criticality Noted [...] available in ED consider consultation with ED Drying Frame Operator. Relevant Medical History (at time Care Plan [...] to initiation of Care Plan: 11 Total [facility] Hospital Admissions in 12 months prior to initiation of Care Plan: 0 (she has technically had 2 admissions due to related issues with OBGYN) Expected home rescue plan: Metoprolol 12.5mg PRN PCP: Marija Edgar APRN CNP - Family Medicine - [facility] Specialists: Dr. Galo Burrell - Cardiology - [facility] Dee Dotson - Neurology - [facility] Epilepsy Care Care Coordination: Has worked with Community Health Worker in past - ARACELIS Parker, Clinical Care Coordination - [facility] ([place], [place] and [place]) - Follow up plan after an ED [...] (05/27/2020): Added automatically from request for surgery [id number] Left ureteral stone 05/27/2020 Overview (05/27/2020): Added automatically from request for surgery [id number] Head ache 02/18/2020 Seizure 05/02/2019 Depressed 05/02/2019 Anxiety 05/02/2019 Tobacco abuse counseling 05/02/2019 Psoriasis 05/02/2019 Resolved Problems Problem Noted Date Diagnosed Date Resolved Date Neck pain 08/25/2022 06/29/2024 Lower back pain 08/25/2022 08/17/2023 Term 01/13/2021 10/11/2022 Encounter for triage in patient 12/09/2020 04/18/2023 Asthma 06/04/2020 02/07/2024 Encounters Date Type Department Care Team Description 11/21/2024 Telephone [facility] [place] [phone] Celine Vogel RN General 11/20/2024 11:20 AM CDT Ancillary Procedure [address] [address] Estephania Flannery NP Acute cough 11/20/2024 11:15 AM CDT Office Visit [facility] [address] [address] Estephania Flannery NP Yeast infection of the vagina (Primary Dx); Fever, unspecified; Acute cough; Screening examination for STI; Dysuria; Viral URI with cough; Irregular bowel habits 11/20/2024 Travel 11/09/2024 MyC Medical Advice [facility] [address] [phone] Apolinar Gresham 11/07/2024 Telephone [facility] [address] [phone] Meredith Carrera PA-C Appointment 11/02/2024 7:45 AM CDT Virtual Visit [facility] [address] [phone] Meredith Carrera PA-C Bloating symptom (Primary Dx); Irregular bowel habits; Eosinophilic esophagitis 10/28/2024 3:58 PM CDT - 10/28/2024 6:57 PM CDT Emergency [facility] Emergency Dept [address] [place] [address] [phone] Jeffrey Fofana MD Acute chest pain Discharge Disposition: Home or Self Care 10/28/2024 Travel 10/24/2024 4:00 PM CDT Office Visit [address] [place] [address] Jelena David, OD Hyperopia of both eyes with astigmatism (Primary Dx); Headache, unspecified headache type 10/24/2024 11:00 AM CDT Office Visit [address] [address] Anthony Doe PA-C Sore throat (Primary Dx); Abdominal bloating; SVT (supraventricular tachycardia) 10/24/2024 Orders Only (auto-released) [address] [address] Anthony Doe PA-C SVT (supraventricular tachycardia) 10/24/2024 Travel 10/23/2024 PRE VISIT [facility] [address] [facility], [address] [place] [phone] Johnny Penn MD Previsit 10/21/2024 Travel 10/18/2024 Telephone [facility] [place] [address] [facility] [address] 4th [place] [address] Meredith Carrera PA-C Appointment (10/31/2024) 10/18/[address] [address] Brea Quinn APRN DIE ASSEMBLER Refill Request (Triamcinolone Acetonide 0.1% ointment) 10/17/[address] [address] Esha Grimm PA-C Medication Refill 10/11/2024 MyC Medical Advice [address] [address] Diana Desir, [facility] 10/10/2024 MyC Medical Advice [facility] [address] [facility] [address] [place] [address] Carley Myles RN 10/09/2024 Telephone [facility] [address] [facility] [address] [place] [phone] Livan Sharif MD Call Back (Heart Monitor) 10/04/2024 10:00 AM CDT Office Visit [facility] [place] [address] [place] [address] Audrey Díaz PA-C Throat pain (Primary Dx) 10/04/2024 Travel 10/02/2024 MyC Medical Advice [address] [address] Esha Grimm PA-C 10/01/2024 MyC Medical Advice [facility] [address] [facility] [address] [place] [phone] Marija Bailey RN 10/01/2024 Telephone [facility] [address] [place] [address] [address] [place] [phone] Fabiano Correa, BRYCE Orders (Zio Patch) 09/28/[address] [place] [phone] Livan Sharif MD Allergies (Allergic reaction to zio patch ) 09/20/2024 1:45 PM CDT Lab [facility] [address] [place] [phone] Vaginal discharge 09/20/2024 Travel 09/19/2024 9:40 PM CDT E-Visit [address] [address] Esha Grimm PA-C Vaginal Discharge (Entered automatically b... 09/17/[address] [address] Anthony Doe PA-C Medication Refill 09/10/2024 Orders Only (auto-released) [address] [place] [phone] Fabiano Correa NP Palpitations 09/07/2024 MyC Medical Advice [facility] [address] [phone] Meredith Carrera PA-C 09/07/2024 MyC Medical Advice [facility] [address] [place] [address] [address] [place] [phone] Fabiano Correa NP Palpitations (Primary Dx) 08/27/2024 9:06 PM FUEL RETROFITTING TECHNICIAN - 08/27/2024 10:09 PM FUEL RETROFITTING TECHNICIAN Emergency [facility] Emergency Dept [address] [place] [phone] Fady Vega MD Palpitations Discharge Disposition: Home [...] Answer Date Recorded PHQ-2 Score 1 10/24/2024 [facility] [...] exercise at this level? 20 min 05/07/2024 [place] Depression Scale Answer Date Recorded [place] Depression Score 5 01/14/2021 Last EPDS [...] PM CDT Legal Sex Female 4:13 AM FUEL RETROFITTING TECHNICIAN Gender Identity Female 03/02/2021 5:45 PM [...] 11/21/2024 7:00 AM CDT Office Visit [address] [address] Maru Man PA-C [address] [place] [address] 12/20/2024 2:30 PM CDT Office Visit [facility] [address] [place] [address] Esha Grimm PA-C [address] [place] [address] 04/16/2025 11:00 AM CDT Virtual Visit [facility] [place] [address] [facility] 4th [place] [address] Meredith Carrera PA-C [address] [place], [place] [phone] Health Maintenance Due Date Last Done Comments [...] TRACING ONLY STAT 10/28/2024 3:14 PM CDT MT REFRACTION Routine 10/24/2024 4:23 PM CDT Hyperopia [...] MAIL OUT Routine 09/07/2024 10 :31 AM FUEL RETROFITTING TECHNICIAN Palpitations CBC WITH PLATELETS & DIFFERENTIAL STAT 08/27/2024 9:19 PM FUEL RETROFITTING TECHNICIAN CBC WITH PLATELETS AND DIFFERENTIAL STAT 08/27/2024 9:19 PM FUEL RETROFITTING TECHNICIAN EXTRA RED TOP TUBE STAT 08/27/2024 9: 19 PM FUEL RETROFITTING TECHNICIAN EXTRA BLUE TOP TUBE STAT 08/27/2024 9 :19 PM FUEL RETROFITTING TECHNICIAN TROPONIN T, HIGH SENSITIVITY STAT 08/27/2024 9:19 PM FUEL RETROFITTING TECHNICIAN BASIC METABOLIC PANEL STAT 08/27/2024 9:19 PM FUEL RETROFITTING TECHNICIAN EXTRA TUBE STAT 08/27/2024 9:19 PM FUEL RETROFITTING TECHNICIAN EKG 12-LEAD, TRACING ONLY STAT 08/27/2024 8:48 PM FUEL RETROFITTING TECHNICIAN HEPATITIS C ANTIBODY Routine 08/03/2024 3:04 PM FUEL RETROFITTING TECHNICIAN Screen for STD (sexually transmitted disease) GYNECOLOGIC [...] BLOOD ORDERABLES Shira snyder Result UU LABORATORY [facility] [place] Core Lab [address] [facility] J [facility], [address] [place] [address], [facility] * (ABNORMAL) UA Microscopic with [...] Urine Culture not indicated us Estephania Flannery DIGITAL ENGINEER LAB - URINE ORDERABLES Shira snyder Result LABORATORY [facility] [address] [facility] (no room number, 1st floor of clinic) [place] [address], [facility] * UA with Microscopic reflex to [...] 11/20/2024 11:47 AM CDT LV LABORATORY Specific [place] Urine 1.015 1.003 - 1.035 11/20/2024 11:47 [...] ORDERABLES Shira l Result Performing Organization Address [facility]/ZIP Co de Phone Number LABORATORY [address] Lab (no room number, 1st floor [address] [facility]) [address] * (ABNORMAL) Wet prep - Clinic Collect (11/20/2024 11:45 AM CDT) Only the most recent of2 resultswithin the time period is included. Trichomonas Absent Absent RENIA 11/20/2024 11:58 AM CDT LV LABORATORY Yeast [...] ORDERAB LES Final Result Performing Organization Address [facility]/ZIP Co de Phone Number LABORATORY [address] Lab (no room number, 1st floor [address] [facility]) [address] * WBC and Differential (11/20/2024 11:41 [...] - BLOOD ORDERABLES Shira l Result LABORATORY [facility] [address] [facility] (no room number, 1st floor of clinic) [place] [address], [facility] * Treponema Abs w Reflex [...] UM SPECIALTY CORE/PROT/ENDO UM Specialty Core/Prot/Endo [address] [facility] [address], Room [address] [place], [place] [address] SPECIALTY LABS Specialty Lab [address] [facility] [address], [address] [place] [address] [[email or web address]] * XR Chest 2 Views (11/20/2024 11:20 AM CDT) Only the most recent of2 resultswithin the time period is included. Anatomical Region Laterality Modality Chest Computed Radiogr aphy 11/20/2024 11:2 0 AM CDT Impressions 11/20/2024 11:22 AM CDT IMPRESSION: Negative chest. Narrative 11/20/2024 11:22 AM CDT EXAM: XR CHEST 2 VIEWS LOCATION: [facility] DATE: 11/20/2024 INDICATION: Acute cough COMPARISON: 10/28/2024 Procedure Note Robert Ramos MD - 11/20/2024 EXAM: XR CHEST 2 VIEWS LOCATION: [facility] DATE: 11/20/2024 INDICATION: Acute cough COMPARISON: [...] MICRO GENERAL ORD ERABLES Final Result LABORATORY [facility] [address] [facility] Lab (no room number, 1st floor of clinic) [place] [address], [facility] * Troponin T, High Sensitivity (10/28/2024 6:23 [...] - BLOOD ORDERABLES Fin al Result LABORATORY [facility] [address] Lab (1st floor, no room number) [place] [address], [facility] * EKG 12 lead (10/28/2024 5:27 PM CDT) Only the most recent of3 resultswithin the time period is included. Systolic Blood Pressure mmHg RADIOLOGY RESULTS Diastolic Blood Pressure mmHg RADIOLOGY RESULTS Ventricular Rate 65 BPM RAD IOLOGY RESULTS Atrial Rate 65 BPM RADIOLOG Y RESULTS MT Interval 150 ms RADIOLOG Y RESULTS QRS Duration 86 ms RADIOLO GY RESULTS QT 398 ms RADIOLOGY RESULTS QTc 413 ms RADIOLOGY RESULTS P [place] 43 degrees RADIOLOGY RESULTS R AXIS 61 degrees RADIOLOGY RESULTS T [place] 45 degrees RADIOLOGY RESULTS Interpretation ECG Sinus rhythm Normal ECG When compared with ECG of 28-Oct-2024 15:14, (unconfirmed ) Vent. rate has decreased by 32 bpm Confirmed by - EMERGENCY ROOM, PHYSICIAN ([id number]), video editor KEYLA MERIDA ([id number]) on 10/29/2024 6:55:27 [...] testing is available if warranted by ordering [id number], HCG Quantitative . Blood STRUCTURE OF RIGHT UPPER LIMB / Unknown Venipuncture / Unknown 10/28/2024 4:20 PM CDT 10/28/2024 4:31 PM CDT Jeffrey Fofana MD LAB - BLOOD ORDERABLES Fin al Result RH LABORATORY [facility] [address] Lab (1st floor, no room number) [place] [address], [facility] * D dimer quantitative (10/28/2024 4:20 PM [...] BLOOD ORDERABLES Fin al Result RH LABORATORY [facility] [address] Lab (1st floor, no room number) [place] [address], [facility] * (ABNORMAL) CBC with platelets [...] - BLOOD ORDERABLES Fin al Result LABORATORY [facility] [address] Lab (1st floor, no room number) [place] [address], [facility] * Basic metabolic panel (BMP) (10/28/2024 4:19 [...] - BLOOD ORDERABLES Fin al Result LABORATORY [facility] [address] [facility] Lab (1st floor, no room number) [place] [address], [facility] * (ABNORMAL) UA Macroscopic with [...] 10/24/2024 11:21 AM CDT CR LABORATORY Specific [place] Urine 1.015 1.003 - 1.035 10/24/2024 11:21 [...] - URINE ORDERABLES Final Result CR LABORATORY [facility] Clinic - [place] Lab [address] [place] [address] (no room number, 1st floor of clinic) [place] [address], [facility] * ZIO PATCH MAIL OUT (10/09/2024 5:49 [...] using the Aptima SARS-CoV-2 Assay on the [employer] Instrument System. Additional information about this Emergency [...] COVID-19. This test was validated by the [facility]. This laboratory is certified under the Clinical Laboratory Improvement Amendments of 1988 (CLIA-88) as qualified to perform high complexity laboratory testing. us Audrey Díaz PA-C LAB - MICRO GENERAL ORDERAB LES Final Result [facility]U IDD LABORATORY [facility] Inf. Diseases Diag. Lab [address] [facility], [address] [place] [address], [facility] * Streptococcus A Rapid Screen w/Reflex to PCR - Clinic Collect (10/04/2024 10:08 AM CDT) Group A Strep antigen Negative Negative 10/04/2024 10:24 AM CDT LABORATORY Swab STRUCTURE OF ANTERIOR PORTION OF NECK / Unknown Non-blood Collection / Unknown 10/04/2024 10:08 AM CDT 10/04/2024 10:15 AM CDT Audrey Díaz PA-C LAB - MICRO GENERAL ORDERAB LES Final Result LABORATORY [facility] [address] [place] [address] (no room number, 1st floor of clinic) [place] [address], [facility] * Group A Streptococcus PCR [...] Xpress Strep A test, performed on the [employer] Instrument Systems, is a rapid, qualitative in [...] ORDERAB LES Final Result UU IDD LABORATORY [facility] Inf. Diseases Diag. Lab [address] [facility], [address] [place], [place] [address] [[email or web address]] * Chlamydia & Gonorrhea by PCR, GICH/Range - Clinic Collect (09/20/2024 1:42 PM CDT) Chlamydia Trachomatis Negative Negative 09/21/2024 11:40 AM CDT UU IDD LABORATORY Comment: Negative for C. trachomatis rRNA by vehicle trimmer mediated amplification. A negative result by vehicle trimmer mediated amplification does not preclude the presence of infection because results are dependent on proper and adequate collection, absence of inhibitors and sufficient rRNA to be detected. Neisseria gonorrhoeae Negative Negative 09/21/2024 11:40 AM CDT UU IDD LABORATORY Comment:Negative for N. gono rrhoeae rRNA by vehicle trimmer mediated amplification. A negative result by vehicle trimmer mediated amplification does not preclude the presence [...] GENERAL ORDERABLES Final Result [facility]U IDD LABORATORY [facility] Inf. Diseases Diag. Lab [address] [facility], Room [place] [address] [[email or web address]] * Extra Red Top Tube (08/27/2024 9:19 PM FUEL RETROFITTING TECHNICIAN) Hold Specimen JIC 08/27/2024 10:31 PM FUEL RETROFITTING TECHNICIAN LABORATORY Blood STRUCTURE OF RIGHT UPPER LIMB / Unknown Venipuncture / Unknown 08/27/2024 9:19 PM FUEL RETROFITTING TECHNICIAN 08/27/2024 9:23 PM FUEL RETROFITTING TECHNICIAN us Fady Vega MD LAB - BLOOD ORDERABLES Fi nal Result RH LABORATORY [facility] [address] Lab (1st floor, no room number) [place] [address], [facility] * Extra Blue Top Tube (08/27/2024 9:19 PM FUEL RETROFITTING TECHNICIAN) Pathologist [facility] Hold Specimen JIC 08/27/2024 10:31 PM FUEL RETROFITTING TECHNICIAN LABORATORY Blood STRUCTURE OF RIGHT UPPER LIMB / Unknown Venipuncture / Unknown 08/27/2024 9:19 PM FUEL RETROFITTING TECHNICIAN 08/27/2024 9:23 PM FUEL RETROFITTING TECHNICIAN Fady Vega MD LAB - BLOOD ORDERABLES Fi nal Result LABORATORY [facility] Lab [address] [facility] Lab (1st floor, no room number) [place] [address] [[email or web address]] * Hepatitis C antibody (08/03/2024 3:04 PM FUEL RETROFITTING TECHNICIAN) [facility] Hepatitis C Antibody Nonreactive Nonreactive 08/03/2024 8:55 PM FUEL RETROFITTING TECHNICIAN LABORATORY Comment:A nonreactive screen ing test result [...] Unknown Venipuncture / Unknown 08/03/2024 3:04 PM FUEL RETROFITTING TECHNICIAN 08/03/2024 3:05 PM FUEL RETROFITTING TECHNICIAN Jaron Hager PA-C LAB - BLOOD ORDERABLES Final Result LABORATORY [facility] [place] Core Lab [address] [facility] J [facility], [address] [place] [address], [facility] * Pap screen reflex to [...] component of this testing was completed at [facility] Laboratory 09/25/2021 10:27 AM CDT SPECIALTY LABS Brushing CERVIX UTERI STRUCTURE / Unknown 09/22/2021 3:14 PM CDT 09/22/2021 3:48 PM CDT Marija Edgar APRN DIE ASSEMBLER LAB - [place] AP Final Re sult SPECIALTY LABS Specialty Lab [address] [facility] J [facility], Room [address] [place] [address], [facility] [phone] from Last 3 Months or Most Recently Relevant to Health Maintenance Additional Health Concerns Infection Onset Date Last Indicated Rule Out COVID-19 11/20/2024 11/20/2024 Insurance [facility] [address] [address] [facility] [address] [address] [facility] * Guarantor: Kim Johnson Account Type Relation to Patient Date of Phone Billing Address Medication Therapy Self [address] [place] [address] [facility] * Guarantor: Kim Johnson Account Type Relation to Patient Date of Phone Billing Address Medication Therapy Self [address] [place] [address] [facility] Advance Directives For more information, please contact: [phone] * Full Code (Latest Code Status on File) Date Activated Date Inactivated Comments 01/14/2021 7:36 AM 01/15/2021 6:05 PM All basic and advanced life-sustaining interventions are performed as appropriate Question Answer Comments Code status determined by: Discussion with patie nt/ legal decision maker Care Teams Park Warden Relationship Specialty Start Date End Date Esha Grimm PA-C [address] [place] [address] PCP - General Family Medicine 05/04/23 Diana Desir, [facility] [address] [place] [address] Pharmacist Pharmacist 04/17/21 Rain Galaviz PA-C [address] [place] [address] [address] [place] [address] Physician Acute Care Registered Nurse Dermatology 04/28/21 Tavia Wyatt MD [address] [place] [address] [address] [place] [address] Dermatology 07/14/21 Erica Farrell APRN DIE ASSEMBLER [address] [place] [address] Nurse Practitioner Cardiovascular Disease 09/09/21 Rich Barrett MD [address] [place] [address] Physician Ophthalmology 01/21/22 Neil Kent MD 500 [place] [address] Dermatology 02/24/22 Diana Desir [facility] [address] [place] [address] Assigned MTM Pharmacist 04/07/22 Livan Sharif MD [address] [place], [place] [address] Cardiovascular Disease 05/14/22 Catherine Cm MD [address] [place], [place] [address] Cardiovascular Disease 07/21/22 Valery Veronica PA-C [address] [place] [address] Physician Acute Care Registered Nurse Dermatology 07/21/22 Brea Quinn APRN DIE ASSEMBLER [address] [place] [address] Nurse Practitioner Dermatology 09/21/22 Radha Lomeli APRN DIE ASSEMBLER [address] [place], [place] [address] Assigned Heart and Vascular Provider 05/28/23 Jelena David OD [address] [facility] [place] [address] Ophthalmology 06/15/23 sEha Grimm PA-C [address] [place] [address] Assigned PCP 07/16/23 Valery Veronica PA-C [address] [place] [address] Physician Acute Care Registered Nurse Dermatology 09/19/23 Rey Tay MD [address] [place] [phone] MD Gastroenterology 09/20/23 Rocyk Zepeda DO [address] [place] [address] Physician Gastroenterology 09/20/23 Philip Dumont MD [address] [place] [phone] Physician Ophthalmology 09/22/23 Meredith Carrera PA-C [address] [place] [address] [phone] Assigned Gastroenterology Provider 11/01/23 Neil Kent MD [address] [address] Dermatology 11/02/23 [place] [address] [facility] [place], [place] [address] Neurological Surgery 12/26/23 Audrey Waite PA-C [address] [place] [address] Physician Acute Care Registered Nurse Dermatology 02/28/24 Valery Veronica PA-C [address] [place] [address] Physician Acute Care Registered Nurse Dermatology 04/10/24 Herminia Hatch MD [address] [place] [address] Assigned Rheumatology Provider 07/02/24 Jelena David OD [address] [place] [address] [place] [address] Ophthalmology 08/30/24 [place] [address] [place] [address] Assigned Neuroscience Provider 09/30/24 Maru Man PA-C [address] [place] [address] Physician Acute Care Registered Nurse Dermatology 10/03/24 Maru Man PA-C [address] [place] [address] Physician Acute Care Registered Nurse Dermatology 10/22/24 Jelena David OD [address] [place] [address] [place] [address] Assigned Surgical Provider 10/31/24
--- OUTSIDE RECORDS SUMMARY | 2024-11-21 05:08 | XMS_ITS | Encounter Summary ---
Author Organization [place] Address [address] [place] [address] Care Team Providers Care Seam Presser Name Role Phone Diana Desir Stanislav [facility] Unavailable Rain Galaviz PA-C Unavailable [phone] Tavia Wyatt MD Unavailable Erica Farrell APRN JUVENILE CORRECTIONAL OFFICER Unavailable Rich Barrett MD Unavailable [phone] Neil Kent MD Unavailable ThangKendrickDiana Stanislav [facility] Unavailable [phone] Livna Sharif MD Unavailable Catherine Cm MD Unavailable + Valery Veronica-C Unavailable Brea Quinn ARMED GUARD JUVENILE CORRECTIONAL OFFICER Unavailable Esha Grimm PA-C Primary Care Provider Radha Lomeli APRN JUVENILE CORRECTIONAL OFFICER Unavailable Jelena David OD Unavailable Esha Grimm PA-C Unavailable [phone] Valery Veronica PA-C Unavailable Rey Tay MD Unavailable DuaneRocky Unavailable Philip Dumont MD Unavailable Meredith Carrera PA-C Unavailable Neil Kent MD Unavailable Juan Pablo Emmanuel MD Unavailable Audrey Waite PA-C Unavailable [phone] Valery Veronica PA-C Unavailable Herminia Hatch MD Unavailable Jelena David OD Unavailable [phone] Juan Pablo Emmanuel MD Unavailable [phone] Maru Man-C Unavailable [phone] Maru ManC Unavailable [phone] Reason for Visit * Reason Comments Annual Eye Exam Encounter Details Date Type Department Care Team (Late st Contact Info) Description 10/24/2024 4:00 PM CDT Office Visit [facility] [place] [address] [place] [address] Jelena David, OD [address] [facility] [place] [id number] Hyperopia of both eyes with astigmatism (Primary [...] How often do you attend chur or buddhism services? 1 to 4 times [...] Answer Date Recorded PHQ-2 Score 1 10/24/2024 [facility] Occupat ional Health - [...] exercise at this level? 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 : No Kyara Shanor - [employer] Medical, surgical and family histories reviewed and [...] CDT Office Visit [facility] [address] [phone] Maru Man PA-C [address] [address] 12/20/2024 2:30 PM CDT Office Visit [facility] [address] [place] [phone] Esha Grimm PA-C [id number] [place] [address] 04/16/2025 11:00 AM CDT Virtual Visit [facility] [address] 4th [place] [phone] Meredith Carrera PA-C [address] [place] [address] documented as of this encounter Procedures Procedure Name Priority Date/Time Associated Diagnosis Comments DE REFRACTION Routine 10/24/2024 4:23 PM CDT Hyperopia [...] documented as of this encounter Care Teams Seam Presser Relationship Specialty Start Date End Date Esha Grimm PA-C [address] [place] [address] PCP - General Family Medicine 05/04/23 Diana Desir, [facility] [address] [place] [address] Pharmacist Pharmacist 04/17/21 Rain Galaviz PA-C [address] [place] [address] [address] [place] [address] Physician Loader Engineer Dermatology 04/28/21 Tavia Wyatt MD [address] [place] [address] [address] [place], [place] [phone] Dermatology 07/14/21 Erica Farrell APRN JUVENILE CORRECTIONAL OFFICER [address] [place], [place] 128[address] Nurse Practitioner Cardiovascular Disease 09/09/21 Rich Barrett MD [address] [place] [address]385 Physician Ophthalmology 01/21/22 Neil Kent MD 500 [place] [address] Dermatology 02/24/22 Diana Desir, [facility] [address] [facility] [place] [address] Assigned MTM Pharmacist 04/07/22 Livan Sharif MD [address] [place] [address] Cardiovascular Disease 05/14/22 Catherine Cm MD [address] [place] 6[address]805 Cardiovascular Disease 07/21/22 Valery Veronica PA-C [address] [place] [address] 094615 Physician Loader Engineer Dermatology 07/21/22 Brea Quinn APRN JUVENILE CORRECTIONAL OFFICER [address] [place] [address] 819475 Nurse Practitioner Dermatology 09/21/22 Radha Lomeli APRN JUVENILE CORRECTIONAL OFFICER [address] [place] [address] [address] [place], [place] 921835 Assigned Heart and Vascular Provider 05/28/23 Jelena David OD [address] [place] [address] [place] [address] Ophthalmology 06/15/23 Esha Grimm PA-C [address] [place] [phone] Assigned PCP 07/16/23 Valery Veronica PA-C [address] [place] [address] Physician Loader Engineer Dermatology 09/19/23 Rey Tay MD [address] [place] [address] MD Gastroenterology 09/20/23 Rocky Zepeda DO [address] [place] [address] Physician Gastroenterology 09/20/23 Philip Dumont MD [address] [place] [address] Physician Ophthalmology 09/22/23 Meredith Carrera PA-C [address] [place] [address] Assigned Gastroenterology Provider 11/01/23 Neil Kent MD [address] [address] Dermatology 11/02/23 [place] [address] [place] [address] Neurological Surgery 12/26/23 Audrey Waite PA-C 500 [place] [address] Physician Loader Engineer Dermatology 02/28/24 Valery Veronica PA-C 996810 [place] [address] Physician Loader Engineer Dermatology 04/10/24 Herminia Hatch MD 1875 [place], [place] 07441125 Assigned Rheumatology Provider 07/02/24 Jelena David OD [address] [facility] [place] [address] Ophthalmology 08/30/24 [place] [address] [address] [facility] [place] [address] Assigned Neuroscience Provider 09/30/24 Maru Man PA-C [address] [place] [address] Physician Loader Engineer Dermatology 10/03/24 Maru Man PA-C [address] [place] [address] Physician Loader Engineer Dermatology 10/22/24 documented as of this encounter
--- OUTSIDE RECORDS SUMMARY | 2024-11-21 05:08 | XMS_ITS | Encounter Summary ---
Author Organization [facility] Address [address] [place] [address] Care Team Providers Care Paper Folder Name Role Phone Diana Desir Stanislav [facility] Unavailable Rain Galaviz PA-C Unavailable Tavia Wyatt MD Unavailable Erica Farrell APRN DEVULCANIZER LOADER Unavailable Rich Barrett MD Unavailable [phone] Neil Kent MD Unavailable ThangKendrickDiana Stanislav [facility] Unavailable [phone] Livan Sharif MD Unavailable Catherine Cm MD Unavailable + Valery Veronica-C Unavailable Brea Quinn HYDROGEN TREATER DEVULCANIZER LOADER Unavailable Esha Grimm PA-C Primary Care Provider [phone] Radha Lomeli APRN DEVULCANIZER LOADER Unavailable Jelena David OD Unavailable Esha rGimm PA-C Unavailable [phone] Valery Veronica PA-C Unavailable [phone] Rey Tay MD Unavailable ZepedaRocky Unavailable Philip Dumont MD Unavailable LoreMeredith mayers PA-C Unavailable Neil Kent MD Unavailable Juan Pablo Luong MD Unavailable [phone] Audrey Waite PA-C Unavailable Valery Veronica PA-C Unavailable [phone] Herminia Hatch MD Unavailable Jelena David OD Unavailable [phone] Juan Pablo Luong MD Unavailable [phone] Maru Man-C Unavailable [phone] Maru Man-C Unavailable [phone] Reason for Visit * Reason Onset Date Comments Previsit 10/23/2024 Encounter Details Date Type Department Care Team (Late st Contact Info) Description 10/23/2024 PRE VISIT [facility] Neurology [address], [address] [place] [address] Johnny Penn MD [address] [facility] [place] [id number] Previsit Social History Tobacco Use Types Packs/Day [...] 1 02/07/2024 [facility] of Occupat ional [...] PM CDT 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 Gender Identity Female 03/02/2021 5:45 PM [...] 11/21/2024 7:00 AM CDT Office Visit [address] [phone] Maru Man PA-C [address] [place] [address] 776600 12/20/2024 2:30 PM CDT Office Visit [facility] [address] [place] [address] Esha Grimm PA-C [address] [place] [address] 04/16/2025 11:00 AM CDT Virtual Visit [facility] G[facility]ology Clinic [address] 4th [place] [phone] Meredith Carrera PA-C [address] [place] [address] 509685 documented as of this encounter Visit Diagnoses Not on filedocumented in this encounter Additional Health Concerns Assessment Noted Time PHQ-9 Depression Total Score: 3 02/07/20 24 9:33 AM CDT documented as of this encounter Care Teams Paper Folder Relationship Specialty Start Date End Date Esha Grimm [place]-C [address] [place] [address] PCP - General Family Medicine 05/04/23 Diana Desir [facility] [address] [place] [address] Pharmacist Pharmacist 04/17/21 Rain Galaviz PA-C [address] [place] [address] [address] [place] [facility] [place] [address] Physician Treatment Technician Dermatology 04/28/21 Tavia Wyatt MD [address] [place] [address] DR [facility] [address] Dermatology 07/14/21 Erica Farrell APRN DEVULCANIZER LOADER [address] [place] 232945 Nurse Practitioner Cardiovascular Disease 09/09/21 Rich Barrett MD [address] [place] [address]385 Physician Ophthalmology 01/21/22 Neil Kent MD 500 [place] [address] Dermatology 02/24/22 Diana Desir, [facility] [address] [place] [address] Assigned MTM Pharmacist 04/07/22 Livan Sharif MD [address] [facility] [address] [place] 728335 Cardiovascular Disease 05/14/22 Catherine Cm MD [address] [place] [address] Cardiovascular Disease 07/21/22 Valery Veronica PAUcheC [address] [place] [address] Physician Treatment Technician Dermatology 07/21/22 Brea Quinn APRN DEVULCANIZER LOADER [address] [place] [address] 419655 Nurse Practitioner Dermatology 09/21/22 Radha Lomeli APRN DEVULCANIZER LOADER [address] [place] [address] Assigned Heart and Vascular Provider 05/28/23 Jelena David OD [facility] [place] [place] [address] Ophthalmology 06/15/23 Esha Grimm PA-C [address] [place] [address]-131683 Assigned PCP 07/16/23 Valery Veronica PA-C [address] [place] [address] 889645 Physician Treatment Technician Dermatology 09/19/23 Rey Tay MD [address] [place] [address] 600435 Gastroenterology 09/20/23 Rocky Zepeda DO [address] [place] [address] 329815 Physician Gastroenterology 09/20/23 Philip Dumont MD [address] [place] [address] Physician Ophthalmology 09/22/23 Meredith Carrera PA-C [address] [place] [address] 759075 Assigned Gastroenterology Provider 11/01/23 Neil Kent MD [address] [address] MD Dermatology 11/02/23 [place] [address] [address] Neurological Surgery 12/26/23 Audrey Waite PA-C [address] [place] [address] Physician Treatment Technician Dermatology 02/28/24 Valery Veronica PA-C 666393 [place] [address] Physician Treatment Technician Dermatology 04/10/24 Herminia Hatch MD [address] [place] [address] Assigned Rheumatology Provider 07/02/24 Jelena David OD [address] [place] [address] [place] [address] Ophthalmology 08/30/24 [place] [address] [place] [address] Assigned Neuroscience Provider 09/30/24 Maru Man PA-C [address] [address] Physician Treatment Technician Dermatology 10/03/24 Maru Man PA-C [address] [place] [address] Physician Treatment Technician Dermatology 10/22/24 documented as of this encounter
--- OUTSIDE RECORDS SUMMARY | 2024-11-21 05:08 | XMS_ITS | Encounter Summary ---
Author Organization [place] Address [address] [place] [address] Care Team Providers Care Oracle Dba Name Role Phone Lita Oseguera Unavailable Unavailable Marija Edgar APRN GENERAL SCIENCE TEACHER Primary Care Provider + Chanelle Mccann APRN CNM Unavailab le Kyara De La Fuente RN Unavailable [phone] Marija Edgar APRN GENERAL SCIENCE TEACHER Unavailable Mynor Broussard MD Unavailable [phone] Keisha Dotson MD Unavailable Galo Burrell MD Unavailable Unavailable Cristina Wood Unavailable Diana Desir [facility] Unavailable Rain Galaviz PA-C Unavailable Summer Lara MD Unavailable [phone] Summer Lara MD Unavailable [phone] Summer Lara MD Unavailable Tavia Wyatt MD Unavailable Johnny Murillo MD Unavailable Erica Farrell APRN GENERAL SCIENCE TEACHER Unavailable VikasTeresita [facility] Unavailable Tavia Wyatt MD Unavailable Diana Desir [facility] Unavailable Rich Barrett MD Unavailable [phone] Neil Kent MD Unavailable Roney Story DP Unavailable Erica Farrell APRN GENERAL SCIENCE TEACHER Unavailable Diana Desir [facility] Unavailable Jelena David Unavailable Galo Burrell MD Unavailable Unavailable Livan Sharif MD Unavailable Livan Sharif MD Unavailable Catherine Cm MD Unavailable + Valery Veronica-C Unavailable [phone] Catherine Cm MD Unavailable + Johnny Murillo MD Unavailable [phone] Brea Quinn PUMP INSTALLER GENERAL SCIENCE TEACHER Unavailable [phone] Brea Quinn PUMP INSTALLER GENERAL SCIENCE TEACHER Unavailable [phone] Jose Francisco Johnson MD Unavailable Livan Sharif MD Unavailable Catherine Cm MD Unavailable + Sydnie Martinez RN Unavailable Unavailable Alfonso Renteria MD Unavailable Esha Grimm PA-C Primary Care Provider Cheng Todd PA-C Unavailable Radha Lomeli PUMP INSTALLER GENERAL SCIENCE TEACHER Unavailable Jelena David OD Unavailable Pao Joseph RN Unavailable Unavailable AlfaWicholincoln [place]ina PA-C Unavailable [phone] Valery Veronica PA-C Unavailable Rey Tay MD Unavailable Rocky Zepeda DO Unavailable Philip Dumont MD Unavailable [phone] Meredith Carrera PA-C Unavailable [phone] Neil Kent MD Unavailable Juan Pablo Emmanuel MD Unavailable [phone] Audrey Waite PA-C Unavailable [phone] JeremíasValery damon PA-C Unavailable Herminia Hatch MD Unavailable Jelena David OD Unavailable Juan Pablo Emmanuel MD Unavailable Maru Man PA-C Unavailable Maru Man PA-C Unavailable Jelena David OD Unavailable Encounter Details Date Type Department Care Team (Late st Contact Info) Description 01/02/2021 MyC Medical Advice [address] [address] Kierra Eller Social History Tobacco [...] Answer Date Recorded PHQ-2 Score 3 09/29/2020 [facility] of Occupat ional Health [...] PM CDT 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 [address] [place] [phone] Esha Grimm PA-C [address] [place] [address] 04/16/2025 11:00 AM CDT Virtual Visit [facility] [address] 4th [place] [phone] Meredith Carrera PA-C [address] [place] [address] documented as of this encounter Visit Diagnoses Not on filedocumented in this encounter Additional Health Concerns Infection Onset Date Last Indicated Resolved Time Rule Out COVID-19 05/11/2021 05/11/2021 05/13/2021 10:18 AM CDT Rule Out COVID-19 07/13/2021 07/13/2021 07/14/2021 3:04 PM JAVASCRIPT DEVELOPER Rule Out COVID-19 07/18/2021 07/18/2021 07/20/2021 1:56 PM JAVASCRIPT DEVELOPER COVID-19 07/18/2021 07/18/2021 08/08/2021 11:3 9 PM JAVASCRIPT DEVELOPER Rule Out COVID-19 12/18/2021 12/18/2021 12/19/2021 11:34 AM CDT Rule Out COVID-19 02/24/2022 02/24/2022 02/25/2022 1:08 PM CDT Rule Out COVID-19 04/26/2022 04/26/2022 04/26/2022 6:47 AM CDT Rule Out COVID-19 05/17/2022 05/17/2022 05/17/2022 10:20 PM JAVASCRIPT DEVELOPER Rule Out COVID-19 06/09/2022 06/09/2022 06/09/2022 9:35 AM JAVASCRIPT DEVELOPER COVID-19 06/09/2022 06/09/2022 06/30/2022 11:4 1 PM JAVASCRIPT DEVELOPER Rule Out COVID-19 11/10/2022 11/10/2022 11/11/2022 [...] as of this encounter Care Teams Oracle Dba Relationship Specialty Start Date End Date Marija Edgar APRN GENERAL SCIENCE TEACHER PCP - General Nurse Practitioner 04/30/20 04/14/23 Esha Grimm PA-C [address] [place] [phone] PCP - General Family Medicine 05/04/23 Lita Oseguera Personal Advocate & Liaison (PAL) 02/28/20 03/27/23 Chanelle Mccann APRN CNdAam [address] [address] Assigned OBGYN Provider 05/02/2005/09 Kyara De La Fuente, RN Specialty Supervisor Reactor Fueling Neurology 06/04/20 03/05/21 Marija Edgar APRN GENERAL SCIENCE TEACHER Assigned PCP 06/08/20 04/29/23 Mynor Broussard MD [address] [address] Assigned Surgical Provider 06/01/20 11/28/21 Keisha Dotson MD 909 [place] [address] Assigned Neuroscience Provider 06/04/20 04/01/23 Galo Burrell MD Assigned Heart and Vascular Provider 10/05/20 04/02/22 Cristina Wood Financial Resource Worker 02/09/21 02/09/21 Diana Desir, [facility] 30[address] [place] [address] Pharmacist Pharmacist 04/17/21 Rain Galaviz PA-C [address] [place] [address] [address] [place] [address] Physician Asbestos Siding Mechanic Dermatology 04/28/21 Summer Lara MD [address] [place] [address] Assigned OBGYN Provider 05/10/2105/23 Summer Lara MD [address] [place] [address], [place] [address] Assigned OBGYN Provider 05/31/21 2 Summer Lara MD [address] [facility] [place] [address] Assigned OBGYN Provider 05/24/2105/30 Tavia Wyatt MD [address] [place] [address] Dermatology 07/14/21 Johnny Murillo MD [address] [place] [address] Assigned Musculoskeletal Provider 08/30/21 03/17/22 Erica Farrell APRN GENERAL SCIENCE TEACHER [address] [facility] [address] [place] [address] Nurse Practitioner Cardiovascular Disease 09/09/21 Teresita Bean [facility] [address] [place], [place] [phone] Pharmacist Pharmacist 09/24/21 09/29/21 Tavia Wyatt MD [address] [place] [address] Assigned Surgical Provider 11/29/21 05/07/22 Diana Desir, [facility] [address] [place] [address] Assigned MTM Pharmacist 01/02/22 Rich Barrett MD [address] [place] [address] Physician Ophthalmology 01/21/22 Neil Kent MD 500 [place] [address] Dermatology 02/24/22 Roney Story DPM [address] [facility] [address] [place] [address] Assigned Musculoskeletal Provider 03/20/22 08/13/22 Erica Farrell APRN GENERAL SCIENCE TEACHER 1700 [place] [address] Assigned Heart and Vascular Provider 04/03/22 04/16/22 [facility] [address] [place] [address] Assigned MTM Pharmacist 04/07/22 Jelena David OD [address] [facility] [place] [address] Assigned Surgical Provider 05/08/22 10/08/22 Galo Burrell MD Assigned Heart and Vascular Provider 04/17/22 06/11/22 Livan Sharif MD [address] [place] [address] Cardiovascular Disease 05/14/22 Livan Sharif MD [address] [place] 720465 Assigned Heart and Vascular Provider 06/12/22 07/23/22 Catherine Cm MD [address] [facility] [address] [place] [address] Cardiovascular Disease 07/21/22 Valery Veronica, PA-C [address] [place] [address] 001225 Physician Asbestos Siding Mechanic Dermatology 07/21/22 Catherine Cm MD [address] [place] 1359100 [place] [address] Assigned Heart and Vascular Provider 07/24/22 11/05/22 Johnny Murillo MD [address] [place] [address] Assigned Musculoskeletal Provider 08/14/22 10/08/22 Brea Quinn APRN GENERAL SCIENCE TEACHER [address] [place] [address] Nurse Practitioner Dermatology 09/21/22 Brea Quinn APRN GENERAL SCIENCE TEACHER [address] [place] [address] [place] [address] Assigned Surgical Provider 10/09/22 05/01/24 [place] [address] [place] [address] [place] [address] Assigned Musculoskeletal Provider 10/09/22 05/01/24 Livan Sharif MD [address] [facility] [place] [address] Assigned Heart and Vascular Provider 11/06/22 11/12/22 Catherine Cm MD [address] [place] [address] Assigned Heart and Vascular Provider 11/13/22 05/27/23 Sydnie Martinez RN Personal Advocate & Liaison (PAL) Family Medicine 03/28/23 07/31/23 Alfonso Renteria MD 57[address] [facility] 200 [place] [address] Assigned Neuroscience Provider 04/02/23 09/29/24 Cheng Todd PA-C [address] [place] [address] [id number] Assigned PCP 04/30/23 07/15/23 Radha Lomeli APRN GENERAL SCIENCE TEACHER [address] [place] [address] Assigned Heart and Vascular Provider 05/28/23 Jelena David OD [address] [facility] [address] Ophthalmology 06/15/23 Pao Joseph, VJ Personal Advocate & Liaison (PAL) Nurse 08/01/23 11/07/23 Esha Grimm PA-C [address] [place] [phone] Assigned PCP 07/16/23 Valery Veronica PA-C [address] [place] [address] Physician Asbestos Siding Mechanic Dermatology 09/19/23 Rey Tay MD [address] [place] [address] MD Gastroenterology 09/20/23 Rocky Zepeda DO [address] [place] [address] Physician Gastroenterology 09/20/23 Philip Dumont MD [address] [place] [address] Physician Ophthalmology 09/22/23 Meredith Carrera PA-C [address] [place] [address] Assigned Gastroenterology Provider 11/01/23 Neil Kent MD [address] 913660 Dermatology 11/02/23 [place] [address] [place], [place] 492687 Neurological Surgery 12/26/23 Audrey Waite PA-C [address] [place] [address] Physician Asbestos Siding Mechanic Dermatology 02/28/24 Valery Veronica PA-C [address]605 [address] [place] [address] Physician Asbestos Siding Mechanic Dermatology 04/10/24 Herminia Hatch MD [facility]5 [place] [address] Assigned Rheumatology Provider 07/02/24 Jelena David OD [facility]5 [facility] [place] [address] Ophthalmology 08/30/24 [place] [address] [place] [address] Assigned Neuroscience Provider 09/30/24 Maru Man PA-C [address] [place] [address] Physician Asbestos Siding Mechanic Dermatology 10/03/24 Maru Man PA-C [address] [place] [address] Physician Asbestos Siding Mechanic Dermatology 10/22/24 Jelena David OD [facility]5 [facility] [place] [address] Assigned Surgical Provider 10/31/24 documented as of this encounter
--- OUTSIDE RECORDS SUMMARY | 2024-11-21 05:08 | XMS_ITS | Encounter Summary ---
Author Organization [place] Address [address] [place] [address] Care Team Providers Care Internet Sales Associate Name Role Phone Diana Desir Stanislav [facility] Unavailable [phone] Rain Galaviz PA-C Unavailable Tavia Wyatt MD Unavailable Erica Farrell APRN ENDO TECH Unavailable Rich Barrett MD Unavailable [phone] Neil Kent MD Unavailable ThangKendrickDiana Stanislav [facility] Unavailable [phone] Livan Sharif MD Unavailable Catherine Cm MD Unavailable + Valery Veronica-C Unavailable Brea Quinn NUT PACKER ENDO TECH Unavailable [phone] Esha Grimm PA-C Primary Care Provider Radha Lomeli APRN ENDO TECH Unavailable Jelena David OD Unavailable [phone] Esha Grimm PA-C Unavailable [phone] Valery Veronica PA-C Unavailable Rey Tay MD Unavailable DuaneRocky Unavailable Philip Dumont MD Unavailable [phone] PinoMeredith paez PA-C Unavailable Neil Kent MD Unavailable Juan Pablo Emmanuel MD Unavailable Audrey Waite PA-C Unavailable Valery Veronica PA-C Unavailable [phone] Herminia Hatch MD Unavailable Jelena David OD Unavailable Juan Pablo Emmanuel MD Unavailable Maru ManC Unavailable Maru Man PA-C Unavailable Reason for Referral * CV Testing (Routine) - Pending Review Specialty Diagnoses / Procedures Referred By Qian mayers Referred To Contact Diagnoses SVT (supraventricular tachycardia) Procedures ZIO PATCH MAIL OUT Anthony Doe PA-C [address] [place] [address] Phone: tel: fax: Referral ID Status Reason Start Date Expiration Date V isits Requested Visits Authorized [id number] Pending Review 10/24/2024 10/24/2025 1 1 Reason for Visit * Reason Comments Pharyngitis Encounter Details Date Type Department Care Team (Late st Contact Info) Description 10/24/2024 11:00 AM CDT Office Visit [facility] [address] [place] [phone] Anthony Doe PA-C [address] [place] [address] Sore throat (Primary Dx); Abdominal bloating; SVT [...] Answer Date Recorded PHQ-2 Score 1 10/24/2024 [facility] - Occupational [...] exercise at this level? 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 Gender Identity Female 03/02/2021 5:45 PM [...] Negative Ketones Urine Negative Negative mg/dL Specific [place] Urine 1.015 1.003 - 1.035 Blood Urine [...] CDT Office Visit [facility] [address] [phone] Maru Man PA-C [address] 438630 12/20/2024 2:30 PM CDT Office Visit [facility] [address] [place] [address] Esha Grimm PA-C [address] [place] [address] 04/16/2025 11:00 AM CDT Virtual Visit [facility] G[facility]ology Clinic [address] 4th [place] [phone] Meredith Carrera PA-C [address] [place] [address]405 documented as of this encounter Procedures Procedure [...] - URINE ORDERABLES Final Result CR LABORATORY [facility] [place] [facility] [address] [facility] (no room number, 1st floor of clinic) [place] [address], [facility] * (ABNORMAL) UA Macroscopic with [...] 10/24/2024 11:21 AM CDT CR LABORATORY Specific [place] Urine 1.015 1.003 - 1.035 10/24/2024 11:21 [...] - URINE ORDERABLES Final Result CR [facility] [address] [facility] (no room number, 1st floor of clinic) [place] [address], [facility] documented in this encounter Visit Diagnoses Diagnosis Sore throat- Primary Acute pharyngitis Abdominal bloating Flatulence, eructation, and gas pain SVT (supraventricular tachycardia) Other specified cardiac dysrhythmias documented in this encounter Additional Health Concerns Assessment Noted Time PHQ-9 Depression Total Score: 5 10/25/19 25 10:38 AM CDT documented as of this encounter Care Teams Internet Sales Associate Relationship Specialty Start Date End Date Esha Grimm PA-C [address] [place] [address] PCP - General Family Medicine 05/04/23 Diana Desir [facility] [address] [place] [address] Pharmacist Pharmacist 04/17/21 Rain Galaviz PA-C [address] [place] [address] [place] [address] Physician Freezing Room Worker Dermatology 04/28/21 Tavia Wyatt MD [address] [place] [address] DR RAZO [facility] GIOVANY SCHMIDT MD [id number] Dermatology 07/14/21 Erica Farrell APRN ENDO TECH [address] [place] [id number] Nurse Practitioner Cardiovascular Disease 09/09/21 Rich Barrett MD [address] [place] 860315 Physician Ophthalmology 01/21/22 Neil [place] MD [address] [place] [address] 309955 Dermatology 02/24/22 [facility] 3033 [place], [place] 870946 Assigned [place] Pharmacist 04/07/22 Livan Sharif MD [address] D[place] [facility] [place] MD 164125 Cardiovascular Disease 05/14/22 Catherine Cm MD [address] [facility] [place] 033095 Cardiovascular Disease 07/21/22 Valery Veronica, PA-C 909 [place], [place] 064195 Physician Freezing Room Worker Dermatology 07/21/22 Brea Quinn APRN ENDO TECH [address] [place] [address] Nurse Practitioner Dermatology 09/21/22 Radha Lomeli APRN ENDO TECH [address] [facility] [address] [place] [address] Assigned Heart and Vascular Provider 05/28/23 Jelena David OD [address] [place] [address] MD Ophthalmology 06/15/23 Esha Grimm PA-C [address] [place] [phone] Assigned PCP 07/16/23 Valery Veronica PA-C [address] [place] [address] 794925 Physician Freezing Room Worker Dermatology 09/19/23 Rey Tay MD [address] [place] [address] 741935 Gastroenterology 09/20/23 Rocky Zepeda DO [address] [place] [address] Physician Gastroenterology 09/20/23 Philip Dumont MD [address] [place] [address] 587485 Physician Ophthalmology 09/22/23 Meredith Carrera PA-C [address] [place] [address] Assigned Gastroenterology Provider 11/01/23 Neil [place] MD [address] [place] [address] Dermatology 11/02/23 [place] [address] [place] [address] Neurological Surgery 12/26/23 Audrey Waite PA-C [address] [place] [address] Physician Freezing Room Worker Dermatology 02/28/24 Valery Veronica PA-C [address]858 [address] [place] [address] Physician Freezing Room Worker Dermatology 04/10/24 Herminia Hatch MD [address] [place] [address] [phone] Assigned Rheumatology Provider 07/02/24 Jelena David OD [address] [place] [address] [place] [address] Ophthalmology 08/30/24 [place] [address] [place] [address] Assigned Neuroscience Provider 09/30/24 Maru Man PA-C [address] [place] [address] Physician Freezing Room Worker Dermatology 10/03/24 Maru Man PA-C [address] [address] Physician Freezing Room Worker Dermatology 10/22/24 documented as of this encounter
--- OUTSIDE RECORDS SUMMARY | 2024-11-21 05:08 | XMS_ITS | Encounter Summary ---
Author Organization [place] Address [address] [place] [address] Care Team Providers Care Kindergartners Helper Name Role Phone Diana Desir Stanislav [facility] Unavailable Rain Galaviz PA-C Unavailable Tavia Wyatt MD Unavailable Erica Farrell APRN SENIOR BUDGET ANALYST Unavailable Rich Barrett MD Unavailable [phone] Neil [place] MD Unavailable ThangKendrickDiana Stanislav [facility] Unavailable [phone] Livan Sharif MD Unavailable Catherine Cm MD Unavailable + Valery Veronica-C Unavailable [phone] Brea Quinn LOCOMOTIVE CRANE OPERATOR SENIOR BUDGET ANALYST Unavailable Esha Grimm PA-C Primary Care Provider Radha Lomeli APRN SENIOR BUDGET ANALYST Unavailable Jelena David OD Unavailable [phone] Esha Grimm PA-C Unavailable [phone] Valery Veronica PA-C Unavailable Rey Tay MD Unavailable DuaneRocky Unavailable Philip Dumont MD Unavailable PinoMeredith paez PA-C Unavailable Neil [place] MD Unavailable Juan Pablo Emmanuel MD Unavailable Audrey Waite PA-C Unavailable Valery Veronica PA-C Unavailable [phone] Herminia Hatch MD Unavailable Jelena David OD Unavailable Juan Pablo Emmanuel MD Unavailable [phone] Maru Man-C Unavailable [phone] Maru Man PA-C Unavailable Reason for Visit * Reason Comments Chest Pain Encounter Details Date Type Department Care Team (Late st Contact Info) Description 10/28/2024 3:58 PM CDT - 10/28/2024 6:57 PM CDT Emergency [facility] Emergency Dept [address] [place] [address] Jeffrey Fofana MD [facility] [address] [place] [address] Acute chest pain Discharge Disposition: Home or [...] Answer Date Recorded PHQ-2 Score 1 10/24/2024 [facility] Stress [...] PM CDT 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 Notes a family historyof 3 VA's under the age of 40. Her father [...] to prior, dated 08/27/24. Rate 97 bpm. RI interval 142 ms. QRS duration 82 ms. QT/QTc 344/436 ms. P-R-T axes 52 56 28. EKG ECG taken at 1727, ECG read at 1730 Normal sinus rhythm No significant change as compared to prior, dated 10/28/24 at 1514. Rate 65 bpm. RI interval 150 ms. QRS duration 86 ms. [...] Documentation None Medical Decision Making / Diagnosis [facility] Diagnoses: None MIPS None [facility] Kim Johnson is a 24 year [...] statements to me. Jeffrey Fofana MD 10/28/24 [id number] * Jyoti Seaman RN - 10/28/2024 3:21 PM CDT Pt coming from 3rd floor, was working when started having heavy chest pressure about an hour ago. Hx of ablasion for SVT, 2 years ago. VSS. documented in this encounter Plan of Treatment Upcoming Encounters Date Type Department Care Team (Late st Contact Info) Description 11/21/2024 7:00 AM CDT Office Visit [address] [phone] Maru Man PA-C [address] [address] 12/20/2024 2:30 PM CDT Office Visit [address] [address] Esha Grimm PA-C [id number] [place] [address] 04/16/2025 11:00 AM CDT Virtual Visit [facility] Gastroenterology Clinic [address] 4th [place] [address] Meredith Carrera PA-C [address] [place] [address] documented as of this encounter Procedures Procedure [...] LAB - BLOOD ORDERABLES Fin al Result [facility] Acute Care Lab [address] [facility] Lab (1st floor, no room number) [place] [address] * Chest XR, PA & LAT (10/28/2024 5:41 PM CDT) Anatomical Region Laterality Modality Chest Computed Radiogr aphy 10/28/2024 5:41 PM CDT Impressions 10/28/2024 5:44 PM CDT IMPRESSION: No focal airspace disease. No pleural effusion or pneumothorax. The cardiomediastinal silhouette is unremarkable. Narrative 10/28/2024 5:44 PM CDT EXAM: XR CHEST 2 VIEWS LOCATION: [facility] DATE: 10/28/2024 INDICATION: Chest pain. COMPARISON: 03/25/2024 Procedure Note Elver Murillo MD - 10/28/2024 EXAM: XR CHEST 2 VIEWS LOCATION: [facility] DATE: 10/28/2024 INDICATION: Chest pain. COMPARISON: 03/25/2024 [...] Atrial Rate 65 BPM RADIOLOG Y RESULTS RI Interval 150 ms RADIOLOG Y RESULTS QRS Duration 86 ms RADIOLO GY RESULTS QT 398 ms RADIOLOGY RESULTS QTc 413 ms RADIOLOGY RESULTS P Ragland 43 degrees RADIOLOGY RESULTS R AXIS 61 degrees RADIOLOGY RESULTS T Ragland 45 degrees RADIOLOGY RESULTS Interpretation ECG Sinus rhythm Normal ECG When compared with ECG of 28-Oct-2024 15:14, (unconfirmed ) Vent. rate has decreased by 32 bpm Confirmed by - EMERGENCY ROOM, PHYSICIAN ([id number]), editorial writer KEYLA MERIDA ([id number]) on 10/29/2024 6:55:27 AM [...] BLOOD ORDERABLES Fin al Result LABORATORY [facility] Acute Care Lab [address] Lab (1st floor, no room number) [place] [id number] * HCG QUALitative (blood) (10/28/2024 4:20 PM CDT) hCG Serum Qualitative Negative Negative REINA 10/28/2024 5:14 PM CDT [facility] Comment:This test is for scr eening purposes. Results should be interpreted along with the clinical picture. Confirmation testing is available if warranted by ordering [id number], HCG Quantitative . Blood STRUCTURE OF RIGHT UPPER LIMB / Unknown Venipuncture / Unknown 10/28/2024 4:20 PM CDT 10/28/2024 4:31 PM CDT us Jeffrey Fofana MD LAB - BLOOD ORDERABLES Fin al Result [facility] LABORATORY [facility] Acute Care Lab [address] Lab (1st floor, no room number) [place] [phone] * (ABNORMAL) CBC with [...] ORDERABLES Fin al Result [facility] LABORATORY [facility] Acute Care Lab [address] Lab (1st floor, no room number) [place] [address], [facility] * Troponin T, High Sensitivity (10/28/2024 [...] BLOOD ORDERABLES Fin al Result LABORATORY [facility] Acute Care Lab [address] [facility] Lab (1st floor, no room number) [place] [address], [facility] * Basic metabolic panel (BMP) (10/28/2024 4:19 PM CDT) [facility] Sodium 137 135 - 145 mmol/L 10/28/2024 [...] ORDERABLES Fin al Result [facility] LABORATORY [facility] Acute Care Lab [address] Lab (1st floor, no room number) [place] [address] * EKG 12-lead, tracing only (10/28/2024 3:14 PM CDT) Systolic Blood Pressure mmHg RADIOLOGY RESULTS Diastolic Blood Pressure mmHg RADIOLOGY RESULTS Ventricular Rate 97 BPM RAD IOLOGY RESULTS Atrial Rate 97 BPM RADIOLOG Y RESULTS RI Interval 142 ms RADIOLOG Y RESULTS QRS Duration 82 ms RADIOLO GY RESULTS QT 344 ms RADIOLOGY RESULTS QTc 436 ms RADIOLOGY RESULTS P Ragland 52 degrees RADIOLOGY RESULTS R AXIS 56 degrees RADIOLOGY RESULTS T Ragland 28 degrees RADIOLOGY RESULTS Interpretation ECG Sinus rhythm Nonspecific ST abnormality Abnormal ECG When compared with ECG of 27-Aug-2024 20:48, No significant change was found Confirmed by - EMERGENCY ROOM, PHYSICIAN ([id number]), editorial writer KEYLA MERIDA (Carlos) on 10/29/2024 6:55:43 AM [...] documented as of this encounter Care Teams Kindergartners Helper Relationship Specialty Start Date End Date Esha Grimm PA-C [address] [place] [address] PCP - General Family Medicine 05/04/23 Diana Desir, [facility] [address] [place] [address] Pharmacist Pharmacist 04/17/21 Rain Galaviz PA-C [address] [place] [address] [address] [place] [address] Physician Typewriter Assembly And Parts Inspector Dermatology 04/28/21 Tavia Wyatt MD [address] [place] [address] [address] [place], [place] [phone] Dermatology 07/14/21 Erica Farrell APRN SENIOR BUDGET ANALYST [address] [place], [place] 661375 Nurse Practitioner Cardiovascular Disease 09/09/21 Rich Barrett MD [address] [place] [address] Physician Ophthalmology 01/21/22 Neil [place] MD 500 [place] [address] Dermatology 02/24/22 Diana Desir, [facility] [address] [place] [address] Assigned MTM Pharmacist 04/07/22 Livan Sharif MD [address] [place] [address] Cardiovascular Disease 05/14/22 Catherine Cm MD [address] [place], [place] 563555 Cardiovascular Disease 07/21/22 Valery Veronica PA-C [address] [place] [address] 966445 Physician Typewriter Assembly And Parts Inspector Dermatology 07/21/22 Brea Quinn APRN SENIOR BUDGET ANALYST [address] [place] [address] 446095 Nurse Practitioner Dermatology 09/21/22 Radha Lomeli APRN SENIOR BUDGET ANALYST [address] [place] [address] S [address] [place], [place] 175135 Assigned Heart and Vascular Provider 05/28/23 Jelena David OD [address] [place] [address] [place] [address] Ophthalmology 06/15/23 Esha Grimm PA-C [address] [place] [phone] Assigned PCP 07/16/23 Valery Veronica PA-C [address] [place] [address] Physician Typewriter Assembly And Parts Inspector Dermatology 09/19/23 Rey Tay MD [address] [place] [address] MD Gastroenterology 09/20/23 Rocky Zepeda DO [address] [place] [address] Physician Gastroenterology 09/20/23 Philip Dumont MD [address] [place] [address] Physician Ophthalmology 09/22/23 Meredith Carrera PA-C [address] [place] [address] Assigned Gastroenterology Provider 11/01/23 Neil [place] MD [address] [place] [address] Dermatology 11/02/23 [place] [address] [facility] [place] [address] Neurological Surgery 12/26/23 Audrey Waite PA-C 500 [place] [address] Physician Typewriter Assembly And Parts Inspector Dermatology 02/28/24 Valery Veronica PA-C 006465 [address] [address] Physician Typewriter Assembly And Parts Inspector Dermatology 04/10/24 Herminia Hatch MD [address] [place], [place] 93599125 Assigned Rheumatology Provider 07/02/24 Jelena David OD [address] [facility] [place] [address] Ophthalmology 08/30/24 [place] [address] [place] [address] Assigned Neuroscience Provider 09/30/24 Maru Man PA-C [address] [place] [address] Physician Typewriter Assembly And Parts Inspector Dermatology 10/03/24 Maru Man PA-C [address] [place] [address] Physician Typewriter Assembly And Parts Inspector Dermatology 10/22/24 documented as of this encounter
--- OUTSIDE RECORDS SUMMARY | 2024-11-21 05:08 | XMS_ITS | Encounter Summary ---
Author Organization [place] Address [address] [place] [address] Care Team Providers Care Checking Department Supervisor Name Role Phone Diana Desir Stanislav [facility] Unavailable Rain Galaviz PA-C Unavailable Tavia Wyatt MD Unavailable Erica Farrell APRN ASSISTANT PROSECUTING ATTORNEY Unavailable Rich Barrett MD Unavailable [phone] Neil [place] MD Unavailable ThangKendrickDiana Stanislav [facility] Unavailable [phone] Livan Sharif MD Unavailable Catherine Cm MD Unavailable + Valery Veronica-C Unavailable Brea Quinn IC DESIGN MANAGER ASSISTANT PROSECUTING ATTORNEY Unavailable Esha Grimm PA-C Primary Care Provider Radha Lomeli APRN ASSISTANT PROSECUTING ATTORNEY Unavailable Jelena David OD Unavailable Esha Grimm PA-C Unavailable [phone] Valery Veronica PA-C Unavailable Rey Tay MD Unavailable DuaneRocky Unavailable Philip Dumont MD Unavailable [phone] Meredith Carrera PA-C Unavailable Neil [place] MD Unavailable Juan Pablo Emmanuel MD Unavailable [phone] Audrey Waite PA-C Unavailable Valery Veronica PA-C Unavailable Herminia Hatch MD Unavailable Jelena David OD Unavailable Juan Pablo Emmanuel MD Unavailable Maru ManC Unavailable [phone] Maru ManC Unavailable Encounter Details Date Type Department Care Team (Late st Contact Info) Description 10/24/2024 Orders Only (auto-released) [facility] [address] [place] [address] Anthony Doe PA-C [address] [place] [address] SVT (supraventricular tachycardia) Social History [...] exercise at this level? 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 Gastroenterology Clinic [address] 4th [place] [phone] Meredith Carrera PA-C [address] [place] [address] documented as of this encounter Visit Diagnoses Diagnosis SVT (supraventricular tachycardia) Other specified cardiac dysrhythmias documented in this encounter Additional Health Concerns Assessment Noted Time PHQ-9 Depression Total Score: 5 10/25/19 25 10:38 AM CDT documented as of this encounter Care Teams Checking Department Supervisor Relationship Specialty Start Date End Date Esha Grimm PA-C [address] [place] [phone] PCP - General Family Medicine 05/04/23 Diana Desir, [facility] 30[address] [place] [address] Pharmacist Pharmacist 04/17/21 Rain Galaviz PA-C [address] [place] [address] [address] [place] [address] Physician Topstitcher Zigzag Dermatology 04/28/21 Tavia Wyatt MD [address] [place] [address] [address] [place] [address] Dermatology 07/14/21 Erica Farrell APRN ASSISTANT PROSECUTING ATTORNEY [address] [place] [address] [place] [address] Nurse Practitioner Cardiovascular Disease 09/09/21 Rich Barrett MD [address] [facility] [place] 327045 Physician Ophthalmology 01/21/22 Neil [place] MD 500 [place], [place] 093925 Dermatology 02/24/22 Diana Desir, [facility] 3033 [place], [place] 653286 Assigned [facility] Pharmacist 04/07/22 Livan Sharif MD [address] [address] Cardiovascular Disease 05/14/22 Catherine Cm MD [address] [place] [address] Cardiovascular Disease 07/21/22 Valery Veronica, PA-C [address] [place] [address] 444125 Physician Topstitcher Zigzag Dermatology 07/21/22 Brea Quinn APRN ASSISTANT PROSECUTING ATTORNEY [address] [place] [address] 803365 Nurse Practitioner Dermatology 09/21/22 Radha Lomeli APRN ASSISTANT PROSECUTING ATTORNEY [address] 388345 Assigned Heart and Vascular Provider 05/28/23 Frankie Jelena Templetone, SONJA [address] [facility] [place] [address] MD Ophthalmology 06/15/23 Esha Grimm PA-C [address] [place] [phone] Assigned PCP 07/16/23 Valery Veronica PA-C [address] [place] [address] 719615 Physician Topstitcher Zigzag Dermatology 09/19/23 Rey Tay MD [address] [place] [address] 548605 MD Gastroenterology 09/20/23 Rocky Zepeda DO [address] [place] [address] 068185 Physician Gastroenterology 09/20/23 Philip Dumont MD [address] [place] [address] 437085 Physician Ophthalmology 09/22/23 Meredith Carrera PA-C [address] [place] [address] 153635 Assigned Gastroenterology Provider 11/01/23 Neil [place] MD [address] 964[address] Dermatology 11/02/23 [place] [address] [place] [address] Neurological Surgery 12/26/23 Audrey Waite PA-C 500 [place] [address] Physician Topstitcher Zigzag Dermatology 02/28/24 Valery Veronica PA-C 399855 [address] [address] Physician Topstitcher Zigzag Dermatology 04/10/24 Herminia Hatch MD [address] [place] [address] Assigned Rheumatology Provider 07/02/24 Jelena David OD [address] [place] [address] [place] [address] Ophthalmology 08/30/24 [place] [address] [place] [address] Assigned Neuroscience Provider 09/30/24 Maru Man PA-C [address] [place] [address] Physician Topstitcher Zigzag Dermatology 10/03/24 Maru Man PA-C [address] [place] [address] Physician Topstitcher Zigzag Dermatology 10/22/24 documented as of this encounter
--- OUTSIDE RECORDS SUMMARY | 2024-11-21 05:09 | XMS_ITS | Encounter Summary ---
Author Organization [facility] Address [address] [place] [address] Care Team Providers Care Traveling Storekeeper Name Role Phone Lita Oseguera Unavailable Unavailable Marija Edgar APRN GENERAL MERCHANDISE SALESPERSON Primary Care Provider + Marija Edgar APRN GENERAL MERCHANDISE SALESPERSON Unavailable [phone] Keisha Dotson MD Unavailable Diana Desir [facility] Unavailable Rain Galaviz PA-C Unavailable Tavia Wyatt MD Unavailable Erica Farrell APRN GENERAL MERCHANDISE SALESPERSON Unavailable Tavia Wyatt MD Unavailable [phone] Rich Barrett MD Unavailable [phone] Neil Kent MD Unavailable Roney Story DPM Unavailable Diana Desir [facility] Unavailable [phone] Jelena David OD Unavailable Galo Burrell MD Unavailable Unavailable Livan Sharif MD Unavailable Livan Sharif MD Unavailable IsCatherine hobbs MD Unavailable + Valery Veronica PA-C Unavailable Catherine Cm MD Unavailable + Johnny Murillo MD Unavailable Brea Quinn PROCESS AREA SUPERVISOR GENERAL MERCHANDISE SALESPERSON Unavailable [phone] Brea Quinn PROCESS AREA SUPERVISOR GENERAL MERCHANDISE SALESPERSON Unavailable [phone] Jose Francisco Johnson MD Unavailable Livan Sharif MD Unavailable Catherine Cm MD Unavailable + Sydnie Martinez RN Unavailable Unavailable Alfonso Renteria MD Unavailable [phone] Esha Grimm PA-C Primary Care Provider Cheng Todd PA-C Unavailable Radha Lomeli PROCESS AREA SUPERVISOR GENERAL MERCHANDISE SALESPERSON Unavailable Jelena David OD Unavailable Pao Joseph RN Unavailable Unavailable Esha Grimm PA-C Unavailable [phone] Valery Veronica PA-C Unavailable Rey Tay MD Unavailable Rocky Zepeda DO Unavailable Philip Dumont MD Unavailable Meredith Carrera PA-C Unavailable [phone] Neil Kent MD Unavailable Juan Pablo Emmanuel MD Unavailable Audrey Waite PA-C Unavailable Valery Veronica PA-C Unavailable Herminia Hatch MD Unavailable Jelena David OD Unavailable [phone] Juan Pablo Emmanuel MD Unavailable Maru Man PA-C Unavailable +[phone] Maru Man PA-C Unavailable + Jelena David OD Unavailable [phone] Encounter Details Date Type Department Care Team (Late st Contact Info) Description 05/01/2022 [facility] [place] Medical Advice [address] [address] Diana Desir, [facility] [address] [place], [place] 289466 Social History Tobacco Use Types Packs/Day Years [...] How often do you attend zoroastrian or adventism serv ices? Never 09/22/2021 Do [...] in a mcfp (including now)? No 09/22/2021 Lakeland Depression Scale Answer Date Recorded Lakeland Depression Score 5 01/14/2021 Last EPDS Self Harm Result Not on file 01/14 Education Answer Date Recorded What is the highest level of school you have completed or the highest degree you have received? 12th grade 08/07/2020 Comments No Sex and Gender Information Value Date Recorded Sex Assigned at Female 03/02/2021 5:45 PM CDT Legal Sex Female 4:13 AM YARD CALLER Gender Identity Female 03/02/2021 5:45 PM CDT Sexual Orientation Straight 02/28/2020 12 :51 AM CDT COVID-19 Exposure Response Date Recorded In the last 10 days, have yo u been in contact with someone who was confirmed or suspected to have Coronavirus/COVID-19? Unable to assess 05/03/2022 1:12 PM CDT documented as of this encounter Plan of Treatment Upcoming Encounters Date Type Department Care Team ([facility] st Contact Info) Description 11/21/2024 7:00 AM CDT Office Visit [address] [address] Maru Man PA-C [address] [address] 12/20/2024 2:30 PM CDT Office Visit [facility] [id number] [place] [address] Esha Grimm PA-C [id number] [place] [phone] 04/16/2025 11:00 AM CDT Virtual Visit [facility] [place] [address] [facility] [address] 4th [place] [address] Meredith Carrera PA-C [address] [place] [address] documented as of this encounter Visit Diagnoses Not on filedocumented in this encounter Additional Health Concerns Infection Onset Date Last Indicated Resolved Time Rule Out COVID-19 05/17/2022 05/17/2022 05/17/2022 10:20 PM YARD CALLER Rule Out COVID-19 06/09/2022 06/09/2022 06/09/2022 9:35 AM YARD CALLER COVID-19 06/09/2022 06/09/2022 06/30/2022 11:4 1 PM YARD CALLER Rule Out COVID-19 11/10/2022 11/10/2022 11/11/2022 12:17 [...] as of this encounter Care Teams Traveling Storekeeper Relationship Specialty Start Date End Date Marija Edgar APRN CNP PCP - General Nurse Practitioner 04/30/20 04/14/23 Esha Grimm PA-C [address] [place] [address] PCP - General Family Medicine 05/04/23 Lita Oseguera Personal Advocate & Liaison (PAL) 02/28/20 03/27/23 Marija Edgar APRN GENERAL MERCHANDISE SALESPERSON Assigned PCP 06/08/20 04/29/23 Keisha Dotson MD 909 [place] [address] Assigned Neuroscience Provider 06/04/20 04/01/23 [facility] [address] [place] [address] Pharmacist Pharmacist 04/17/21 Rain Galaviz PA-C [address] [place] [address] [address] [place] [address] Physician Regrind Mill Operator Dermatology 04/28/21 Tavia Wyatt MD [address] [place] [address] [address] [place] [address] Dermatology 07/14/21 Erica Farrell APRN GENERAL MERCHANDISE SALESPERSON [address] [facility] [address] [place] [address] Nurse Practitioner Cardiovascular Disease 09/09/21 Tavia Wyatt MD [address] [place] [address] Assigned Surgical Provider 11/29/21 05/07/22 Rich Barrett MD [address] [place] [address] Physician Ophthalmology 01/21/22 Neil Kent MD 500 [place] [address] Dermatology 02/24/22 Roney Story DPM [address] [facility] [address] [place], [place] 524327 Assigned Musculoskeletal Provider 03/20/22 08/13/22 Diana Desir, [facility] [address] [place], [place] [address]396 Assigned MTM Pharmacist 04/07/22 Jelena David OD [address] [place] [address] Assigned Surgical Provider 05/08/22 10/08/22 Galo Burrell MD Assigned Heart and Vascular Provider 04/17/22 06/11/22 Livan Sharif MD [address] [place] [address] [place] [id number] Cardiovascular Disease 05/14/22 Livan Sharif MD [address] [place] [address] [place] 251365 Assigned Heart and Vascular Provider 06/12/22 07/23/22 Catherine Cm MD [address] [place] [address] [place] 618905 Cardiovascular Disease 07/21/22 Valery Veronica, PA-C [address] [place] [address] Physician Regrind Mill Operator Dermatology 07/21/22 Catherine Cm MD [address] [place] [address] Assigned Heart and Vascular Provider 07/24/22 11/05/22 Johnny Murillo MD [address] [place] [address] Assigned Musculoskeletal Provider 08/14/22 10/08/22 Brea Quinn APRN GENERAL MERCHANDISE SALESPERSON [address] [place] [address] Nurse Practitioner Dermatology 09/21/22 Brea Quinn APRN GENERAL MERCHANDISE SALESPERSON [address] [place] [address] Assigned Surgical Provider 10/09/22 05/01/24 [place] [address] [address] Assigned Musculoskeletal Provider 10/09/22 05/01/24 Livan Sharif MD [address] [place] [address] [place] [address] Assigned Heart and Vascular Provider 11/06/22 11/12/22 Catherine Cm MD [address] [place] [address] [place] [address] Assigned Heart and Vascular Provider 11/13/22 05/27/23 Sydnie Martinez, RN Personal Advocate & Liaison (PAL) Family Medicine 03/28/23 07/31/23 Alfonso Renteria MD 5775 [facility] 200 [place], [place] 851446 Assigned Neuroscience Provider 04/02/23 09/29/24 Cheng Todd PA-C [address] [place] [address] [phone] Assigned PCP 04/30/23 07/15/23 Radha Lomeli APRN GENERAL MERCHANDISE SALESPERSON [address] [place] [address] Assigned Heart and Vascular Provider 05/28/23 Jelena David OD [address] [place] [address] Ophthalmology 06/15/23 Pao Joseph RN Personal Advocate & Liaison (PAL) Nurse 08/01/23 11/07/23 Esha Grimm PA-C [address] [place] [address] Assigned PCP 07/16/23 Valery Veronica PA-C [address] [place] [address] 255975 Physician Regrind Mill Operator Dermatology 09/19/23 Rey Tay MD [address] [place] [address] MD Gastroenterology 09/20/23 Rocky Zepeda DO [address] [place] [address] Physician Gastroenterology 09/20/23 Philip Dumont MD [address] [place] [address] Physician Ophthalmology 09/22/23 Meredith Carrera PA-C [address] [place] [address] 717495 Assigned Gastroenterology Provider 11/01/23 Neil Kent MD [address] [place] [address] [phone] MD Dermatology 11/02/23 [place] [address] 048027 Neurological Surgery 12/26/23 Audrey Wa[place] PA-C [address] [place] [address] Physician Regrind Mill Operator Dermatology 02/28/24 Valery Veronica PA-C [address]185 [place] [address] Physician Regrind Mill Operator Dermatology 04/10/24 Herminia Hatch MD [address] [place] [address] Assigned Rheumatology Provider 07/02/24 Jelena David, SONJA [address] [facility] [place] [address] Ophthalmology 08/30/24 [place] [address] [place] [address] Assigned Neuroscience Provider 09/30/24 Maru Man PA-C [address] [place] [address] Physician Regrind Mill Operator Dermatology 10/03/24 Maru Man PA-C [address] [place] [address] Physician Regrind Mill Operator Dermatology 10/22/24 Jelena David, SONJA [address] [facility] [place] [address] Assigned Surgical Provider 10/31/24 documented as of this encounter
--- OUTSIDE RECORDS SUMMARY | 2024-11-21 05:09 | XMS_ITS | Encounter Summary ---
Author Organization [facility] Address [address] [place] [address] Care Team Providers Care Fountain Roller Assembler Name Role Phone Lita Oseguera Unavailable Unavailable Marija Edgar APRN THEATER TECHNICIAN Primary Care Provider + Chanelle Mccann TANK CAR RECONDITIONER CNM Unavailab le Kyara De La Fuente RN Unavailable [phone] Marija Edgar APRN THEATER TECHNICIAN Unavailable Mynor Broussard MD Unavailable [phone] Keisha Dotson MD Unavailable [phone] Stacey Briones BIOINFORMATICS TECHNICIAN Unavailable [phone] Galo Burrell MD Unavailable Unavailable Lesley Guillermo CHW Unavailable Meredith Bedoya Unavailable Unavailable Cristina Wood Unavailable Diana Desir [facility] Unavailable Rain Galaviz PA-C Unavailable Summer Lara MD Unavailable [phone] Summer Lara MD Unavailable [phone] Summer Lara MD Unavailable [phone] Tavia Wyatt MD Unavailable Johnny Murillo MD Unavailable [phone] Erica Farrell TANK CAR RECONDITIONER THEATER TECHNICIAN Unavailable Vikas Teresita Watson [facility] Unavailable Tavia Wyatt MD Unavailable [phone] Diana Desir [facility] Unavailable Rich Barrett MD Unavailable Neil Kent MD Unavailable Roney Story DPM Unavailable Erica Farrell TANK CAR RECONDITIONER THEATER TECHNICIAN Unavailable Diana Desir [facility] Unavailable Jelena David Unavailable Galo Burrell MD Unavailable Unavailable Livan Sharif MD Unavailable + Livan Sharif MD Unavailable + Catherine Cm MD Unavailable + Valery Veronica PA-C Unavailable [phone] Catherine Cm MD Unavailable + Johnny Murillo MD Unavailable [phone] Brea Quinn TANK CAR RECONDITIONER THEATER TECHNICIAN Unavailable [phone] Brea Quinn TANK CAR RECONDITIONER THEATER TECHNICIAN Unavailable [phone] Jose Francisco Johnson MD Unavailable Livan Sharif MD Unavailable Catherine mC MD Unavailable + Sydnie Martinez RN Unavailable Unavailable Alfonso Renteria MD Unavailable [phone] [place], Esha M PA-C Primary Care Provider Cheng Todd PA-C Unavailable Radha Lomeli APRN THEATER TECHNICIAN Unavailable Jelena David OD Unavailable Pao Joseph RN Unavailable Unavailable Esha Grimm PA-C Unavailable [phone] Valery Veronica PA-C Unavailable Rey Tay [...] Team (Late st Contact Info) Description 10/24/2020 [facility] [address] [address] Marija Edgar APRN THEATER TECHNICIAN [address] [place], [place] [address] Social History Tobacco [...] Recorded PHQ-2 Score 3 09/29/2020 [facility] - Occupational Stress Questionnaire Answer [...] CDT Legal Sex Female 4:13 AM SPECIAL PROCEDURE TECH Gender Identity Female 03/02/2021 5:45 PM [...] 11:44 AM CDT Replied to patient via [email or web address]. Anthony Doe PA-C on 10/27/2020 at 11:54 AM documented in this encounter Plan of Treatment Upcoming Encounters Date Type Department Care Team (Late st Contact Info) Description 11/21/2024 7:00 AM CDT Office Visit [address] [phone] Maru Man PA-C [address] [place] [address] 12/20/2024 2:30 PM CDT Office Visit [facility] [address] [place] [phone] Esha Grimm PA-C [address] [place] [phone] 04/16/2025 11:00 AM CDT Virtual Visit [facility] Gastroenterology Clinic [address] 4th [place] [address] Meredith Carrera PA-C [address] [place] [address] documented as of this encounter Visit Diagnoses Not on filedocumented in this encounter Additional Health Concerns Infection Onset Date Last Indicated Resolved Time Rule Out COVID-19 11/05/2020 11/05/2020 11/06/2020 1:09 PM CDT Rule Out COVID-19 05/11/2021 05/11/2021 05/13/2021 10:18 AM CDT Rule Out COVID-19 07/13/2021 07/13/2021 07/14/2021 3:04 PM SPECIAL PROCEDURE TECH Rule Out COVID-19 07/18/2021 07/18/2021 07/20/2021 1:56 PM SPECIAL PROCEDURE TECH COVID-19 07/18/2021 07/18/2021 08/08/2021 11:3 9 PM SPECIAL PROCEDURE TECH Rule Out COVID-19 12/18/2021 12/18/2021 12/19/2021 11:34 AM CDT Rule Out COVID-19 02/24/2022 02/24/2022 02/25/2022 1:08 PM CDT Rule Out COVID-19 04/26/2022 04/26/2022 04/26/2022 6:47 AM CDT Rule Out COVID-19 05/17/2022 05/17/2022 05/17/2022 10:20 PM SPECIAL PROCEDURE TECH Rule Out COVID-19 06/09/2022 06/09/2022 06/09/2022 9:35 AM SPECIAL PROCEDURE TECH COVID-19 06/09/2022 06/09/2022 06/30/2022 11:4 1 PM SPECIAL PROCEDURE TECH Rule Out COVID-19 11/10/2022 11/10/2022 11/11/2022 [...] documented as of this encounter Care Teams Fountain Roller Assembler Relationship Specialty Start Date End Date Marija Edgar APRN THEATER TECHNICIAN PCP - General Nurse Practitioner 04/30/20 04/14/23 Esha Grimm PA-C [address] [place] [phone] PCP - General Family Medicine 05/04/23 Lita Oseguera Personal Advocate & Liaison (PAL) 02/28/20 03/27/23 Chanelle Mccann APRN CNM [address] [facility] 200 [place] [address] Assigned OBGYN Provider 05/02/2005/09 Kyara De La Fuente, RN Specialty Territory Sales Executive Neurology 06/04/20 03/05/21 Marija Edgar APRN THEATER TECHNICIAN Assigned PCP 06/08/20 04/29/23 Mynor Broussard MD 6363 [facility] 500 [place], [place] 623035 Assigned Surgical Provider 06/01/20 11/28/21 Keisha Dotson MD 909 [place], [place] 445735 Assigned Neuroscience Provider 06/04/20 04/01/23 Stacey Briones, BIOINFORMATICS TECHNICIAN Lead Territory Sales Executive Primary Care - CC 08/11/2012/30 Galo Burrell MD Assigned Heart and Vascular Provider 10/05/20 04/02/22 Lesley Guillermo, [facility] Community Health Worker 10/23/2012/30 Meredith Bedoya Financial Resource Worker 10/23/20 11/23/20 Cristina Wood Financial Resource Worker 02/09/21 02/09/21 Diana Desir, [facility] [address] [place] [address] Pharmacist Pharmacist 04/17/21 Rain Galaviz PA-C [address] [place] [address] [address] [place], [place] [phone] Physician Polysomnographer Dermatology 04/28/21 Summer Lara MD [address] [place] [address] [phone] Assigned OBGYN Provider 05/10/2105/23 Summer Lara MD [address] [place] [address] [id number] Assigned OBGYN Provider 05/31/21 2 Summer Lara MD [address] [place] [address] 128384 Assigned OBGYN Provider 05/24/2105/30 Tavia Wyatt MD [address] [place] [address] [phone] Dermatology 07/14/21 Johnny Murillo MD [address] [facility] [address] [place] [address] Assigned Musculoskeletal Provider 08/30/21 03/17/22 Erica Farrell APRN THEATER TECHNICIAN 6405 [facility] [address] [place], [place] 883375 Nurse Practitioner Cardiovascular Disease 09/09/21 [facility] [address] [place] [address] Pharmacist Pharmacist 09/24/21 09/29/21 Tavia Wyatt MD [address] [place], [place] 518790 Assigned Surgical Provider 11/29/21 05/07/22 [facility] 30[address] [place] [address] Assigned MTM Pharmacist 01/02/22 Rich Barrett MD [address] [place], [place] 900096 Physician Ophthalmology 01/21/22 Neil Kent MD 500 [place] [address] Dermatology 02/24/22 Roney Story DPM [address] [facility] 300 [place] [address] Assigned Musculoskeletal Provider 03/20/22 08/13/22 Erica Farrell APRN THEATER TECHNICIAN 1700 [place] [address] Assigned Heart and Vascular Provider 04/03/22 04/16/22 Diana Desir, [facility] [address] [place] [address] Assigned MTM Pharmacist 04/07/22 Jelena David OD [address] [facility] [place] [address] Assigned Surgical Provider 05/08/22 10/08/22 Galo Burrell MD Assigned Heart and Vascular Provider 04/17/22 06/11/22 Livan Sharif MD [address] [address] [place] [address] Cardiovascular Disease 05/14/22 Livan Sharif MD [address] [place] [address] [place] 723685 Assigned Heart and Vascular Provider 06/12/22 07/23/22 Catherine Cm MD [address] [place] [address] [place] 157065 Cardiovascular Disease 07/21/22 Valery Veronica PA-C 909 [place], [place] 850255 Physician Polysomnographer Dermatology 07/21/22 Catherine Cm MD [address] [place] [address] [place] 419715 Assigned Heart and Vascular Provider 07/24/22 11/05/22 Johnny Murillo MD [address] [address] Assigned Musculoskeletal Provider 08/14/22 10/08/22 Brea Quinn APRN THEATER TECHNICIAN 500 [place] [address] Nurse Practitioner Dermatology 09/21/22 Brea Quinn APRN THEATER TECHNICIAN [address] [place] [address] Assigned Surgical Provider 10/09/22 05/01/24 [place] [address] [facility] 300 [place] [address] Assigned Musculoskeletal Provider 10/09/22 05/01/24 Livan Sharif MD 6405 [facility] [address] [place] [address] Assigned Heart and Vascular Provider 11/06/22 11/12/22 Catherine Cm MD 6405 [facility] [address] [place] [address] Assigned Heart and Vascular Provider 11/13/22 05/27/23 Sydnie Martinez, VJ Personal Advocate & Liaison (PAL) Family Medicine 03/28/23 07/31/23 Alfonso Renteria MD 5775 [facility] 200 [place], [place] 788366 Assigned Neuroscience Provider 04/02/23 09/29/24 Cheng Todd PA-C [address] [place] [address] Assigned PCP 04/30/23 07/15/23 Radha Lomeli APRN THEATER TECHNICIAN 6[address] [facility] [address] [place] [address] Assigned Heart and Vascular Provider 05/28/23 Jelena David OD [address] [facility] [place] [address] MD Ophthalmology 06/15/23 Pao Joseph, VJ Personal Advocate & Liaison (PAL) Nurse 08/01/23 11/07/23 Esha Grimm PA-C [address] [place] [address] Assigned PCP 07/16/23 Valery Veronica PA-C [address] [place] [address] 547555 Physician Polysomnographer Dermatology 09/19/23 Rey Tay MD [address] [place] [address] 397625 Gastroenterology 09/20/23 Rocky Zepeda DO [address] [place] [address] 619105 Physician Gastroenterology 09/20/23 Philip Dumont MD [address] [place] [address] 719355 Physician Ophthalmology 09/22/23 Meredith Carrera PA-C 909 [place] [address] Assigned Gastroenterology Provider 11/01/23 Neil Kent MD [address] 640890 Dermatology 11/02/23 [place] [address] [facility] [place], [place] [phone] Neurological Surgery 12/26/23 Audrey Waite PA-C [address] [place] [address] Physician Polysomnographer Dermatology 02/28/24 Valery Veronica PA-C [address]28 [address] [place] [address] 465789 Physician Polysomnographer Dermatology 04/10/24 Herminia Hatch MD [facility]5 [place], [place] [phone] Assigned Rheumatology Provider 07/02/24 [place] [address] [place] [address] [place] [address] Ophthalmology 08/30/24 [place] [address] [place] [address] Assigned Neuroscience Provider 09/30/24 Maru Man PA-C [address] [place] [address] Physician Polysomnographer Dermatology 10/03/24 Maru Man PA-C [address] [place] [address] Physician Polysomnographer Dermatology 10/22/24 Jelena David OD [address] [place] [address] [place] [address] Assigned Surgical Provider 10/31/24 documented as of this encounter
--- OUTSIDE RECORDS SUMMARY | 2024-11-21 05:09 | XMS_ITS | Encounter Summary ---
Author Organization [facility] Address [address] [place] [address] Care Team Providers Care Digital Designer Name Role Phone Diana Desir Stanislav [facility] Unavailable Rain Galaviz PA-C Unavailable Tavia Wyatt MD Unavailable Erica Farrell APRN CERTIFIED PHLEBOTOMIST Unavailable Rich Barrett MD Unavailable [phone] Neil Kent MD Unavailable ThangKendrickDiana Stanislav [facility] Unavailable [phone] Livan Sharif MD Unavailable Catherine Cm MD Unavailable + Valery Veronica-C Unavailable Brea Quinn ATMOSPHERIC DRIER TENDER CERTIFIED PHLEBOTOMIST Unavailable Esha Grimm PA-C Primary Care Provider Radha Lomeli APRN CERTIFIED PHLEBOTOMIST Unavailable Jelena David OD Unavailable Esha Grimm PA-C Unavailable [phone] Valery Veronica PA-C Unavailable Rey Tay MD Unavailable Duane Rocky Unavailable Philip Dumont MD Unavailable [phone] LoreMeredith mayers PA-C Unavailable [phone] Neil Kent MD Unavailable Juan Pablo Emmanuel MD Unavailable Audrey Waite PA-C Unavailable [phone] Valery Veronica PA-C Unavailable Herminia Hatch MD Unavailable Jelena David OD Unavailable Juan Pablo Emmanuel MD Unavailable [phone] Maru Man-C Unavailable [phone] Maru Man-C Unavailable [phone] Jelena David OD Unavailable [phone] Encounter Details Date Type Department Care Team (Late st Contact Info) Description 11/09/2024 [facility] Medical Advice [facility] [address] [address] Apolinar Gresham Social History Tobacco [...] Answer Date Recorded PHQ-2 Score 1 10/24/2024 [facility] - Occupational [...] exercise at this level? 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 Gender Identity Female 03/02/2021 5:45 PM CDT Sexual Orientation Straight 02/28/2020 12 :51 AM CDT documented as of this encounter Plan of Treatment Upcoming Encounters Date Type Department Care Team (Late st Contact Info) Description 11/21/2024 7:00 AM CDT Office Visit [address] [phone] Maru Man PA-C [address] [address] 12/20/2024 2:30 PM CDT Office Visit [facility] [address] [place] [phone] Esha Grimm PA-C [address] [place] [phone] 04/16/2025 11:00 AM CDT Virtual Visit [facility] [address] [place] [phone] Meredith Carrera PA-C [address] [place] [address] documented as of this encounter Visit Diagnoses Not on filedocumented in this encounter Additional Health Concerns Infection Onset Date Last Indicated Resolved Time Rule Out COVID-19 11/20/2024 11/20/2024 Assessment Noted Time PHQ-9 Depression Total Score: 5 10/25/19 25 10:38 AM CDT documented as of this encounter Care Teams Digital Designer Relationship Specialty Start Date End Date Esha Grimm PA-C [address] [place] [phone] PCP - General Family Medicine 05/04/23 Diana Desir, [facility] [address] [place], [place] 8[address] Pharmacist Pharmacist 04/17/21 Rain Galaviz PA-C [address] [place] [address] [address] [place] [address] Physician Impregnator And Drier Helper Dermatology 04/28/21 Tavia Wyatt MD [address] [place] [address] ENMA KNUTSON [phone] Dermatology 07/14/21 Erica Farrell APRN CERTIFIED PHLEBOTOMIST [address] [facility] [address] [place] 172755 Nurse Practitioner Cardiovascular Disease 09/09/21 Rich Barrett MD [address] [place] 8[address] Physician Ophthalmology 01/21/22 Neil Kent MD 500 [place], [place] 038015 Dermatology 02/24/22 Diana Desir, [facility] [address] [place], [place] 159906 Assigned MTM Pharmacist 04/07/22 Livan Sharif MD [address] [place], [place] 909[address] Cardiovascular Disease 05/14/22 Catherine Cm MD [address] 687765 Cardiovascular Disease 07/21/22 Valery Veronica, PA-C 909 [place], [place] 258625 Physician Impregnator And Drier Helper Dermatology 07/21/22 Brea Quinn APRN CERTIFIED PHLEBOTOMIST 500 [place], [place] 859475 Nurse Practitioner Dermatology 09/21/22 Radha Lomeli APRN CERTIFIED PHLEBOTOMIST [address] [place] 759225 Assigned Heart and Vascular Provider 05/28/23 Jelena David OD [address] [place] [address] MD Ophthalmology 06/15/23 Esha Grimm PA-C [address] [place] [phone] Assigned PCP 07/16/23 Valery Veronica PA-C [address] [place] [address] 392075 Physician Impregnator And Drier Helper Dermatology 09/19/23 Rey Tay MD [address] [place] [address] 388015 MD Gastroenterology 09/20/23 Rocky Zepeda DO [address] [place] [address] 628995 Physician Gastroenterology 09/20/23 Philip Dumont MD 6 [place], [place] 7996[address] Physician Ophthalmology 09/22/23 Meredith Carrera PA-C [address] [place] [address] 094975 Assigned Gastroenterology Provider 11/01/23 Neil Kent MD [address] 401150 Dermatology 11/02/23 [place] [address] [place] [address] Neurological Surgery 12/26/23 Audrey Waite PA-C 500 [place] [address] Physician Impregnator And Drier Helper Dermatology 02/28/24 Valery Veronica PA-C [address]159 [address] [place] [address] Physician Impregnator And Drier Helper Dermatology 04/10/24 Herminia Hatch MD [address] [place] [address] Assigned Rheumatology Provider 07/02/24 Jelena David OD [address] [place] [address] [place] [address] Ophthalmology 08/30/24 [place] [address] [place] [address] Assigned Neuroscience Provider 09/30/24 Maru Man PA-C [address] [place] [address] Physician Impregnator And Drier Helper Dermatology 10/03/24 Maru Man PA-C [address] [place] [address] Physician Impregnator And Drier Helper Dermatology 10/22/24 Jelena David OD [address] [place] [address] [place] [address] Assigned Surgical Provider 10/31/24 documented as of this encounter
--- OUTSIDE RECORDS SUMMARY | 2024-11-21 05:09 | XMS_ITS | Encounter Summary ---
Author Organization [facility] Address [address] [place] [address] Care Team Providers Care Piping Blocker Name Role Phone Diana Desir Stanislav [facility] Unavailable Rain Galaviz PA-C Unavailable Tavia Wyatt MD Unavailable Erica Farrell APRN CHEMICAL RADIATION TECHNICIAN Unavailable Rich Barrett MD Unavailable [phone] Neil Kent MD Unavailable ThangKendrickDiana Stanislav [facility] Unavailable [phone] Livan Sharif MD Unavailable Catherine Cm MD Unavailable + Valery Veronica-C Unavailable Brea Quinn EXTRACTING MACHINE OPERATOR CHEMICAL RADIATION TECHNICIAN Unavailable Esha Grimm PA-C Primary Care Provider Radha Lomeli APRN CHEMICAL RADIATION TECHNICIAN Unavailable Jelena David OD Unavailable Esha Grimm PA-C Unavailable [phone] Valery Veronica PA-C Unavailable Rey Tay MD Unavailable Duane Rockyanne [facility] Unavailable Philip Dumont MD Unavailable [phone] LoreMeredith mayers PA-C Unavailable [phone] Neil Kent MD Unavailable Juan Pablo Emmanuel MD Unavailable [phone] Audrey Waite PA-C Unavailable [phone] Valery Veronica PA-C Unavailable Herminia Hatch MD Unavailable Jelena David OD Unavailable Juan Pablo Emmanuel MD Unavailable [phone] Maru Man-C Unavailable [phone] Maru Man-C Unavailable [phone] Jelena David OD Unavailable [phone] Encounter Details Date Type Department Care Team [...] week 05/07/2024 How often do you attend [facility] or taoist services? 1 to 4 times [...] Answer Date Recorded PHQ-2 Score 1 10/24/2024 [facility] [...] exercise at this level? 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 Gender Identity Female 03/02/2021 5:45 PM CDT Sexual Orientation Straight 02/28/2020 12 :51 AM CDT documented as of this encounter Plan of Treatment Upcoming Encounters Date Type Department Care Team (Late st Contact Info) Description 11/21/2024 7:00 AM CDT Office Visit [address] [phone] Maru Man PA-C [address] [place] [address] 12/20/2024 2:30 PM CDT Office Visit [facility] [address] [place] [phone] Esha Grimm PA-C [address] [place] [phone] 04/16/2025 11:00 AM CDT Virtual Visit [facility] [place] [address] [facility] [address] 4th [place] [phone] Meredith Carrera PA-C [address] [place] [address] documented as of this encounter Visit Diagnoses Not on filedocumented in this encounter Additional Health Concerns Infection Onset Date Last Indicated Resolved Time Rule Out COVID-19 11/20/2024 11/20/2024 Assessment Noted Time PHQ-9 Depression Total Score: 5 10/25/19 25 10:38 AM CDT documented as of this encounter Care Teams Piping Blocker Relationship Specialty Start Date End Date Esha Grimm PA-C [address] [place] [phone] PCP - General Family Medicine 05/04/23 Diana Desir, [facility] [place] [address] Pharmacist Pharmacist 04/17/21 Rain Galaviz PA-C [address] [place] [address] [address] [place] [address] Physician Paver Operator Dermatology 04/28/21 Tavia Wyatt MD [address] [place] [address] [address] [place] [address] Dermatology 07/14/21 Erica Farrell APRN CHEMICAL RADIATION TECHNICIAN [address] [place] [address] Nurse Practitioner Cardiovascular Disease 09/09/21 Rich Barrett MD [address] [place] [address] Physician Ophthalmology 01/21/22 Neil Kent MD 500 [place] [address] Dermatology 02/24/22 [facility] [address] [place] [address] Assigned MTM Pharmacist 04/07/22 Livan Sharif MD [address] [address] Cardiovascular Disease 05/14/22 Catherine Cm MD [address] [address] Cardiovascular Disease 07/21/22 Valery Veronica, PA-C [address] [place] [address] Physician Paver Operator Dermatology 07/21/22 Brea Quinn APRN CHEMICAL RADIATION TECHNICIAN [address] [place] [address] Nurse Practitioner Dermatology 09/21/22 Radha Lomeli APRN CHEMICAL RADIATION TECHNICIAN [address] [place], [place] 921105 Assigned Heart and Vascular Provider 05/28/23 Jelena David OD [address] [facility] [place] [address] MD Ophthalmology 06/15/23 Esha Grimm PA-C [address] [place] [phone] Assigned PCP 07/16/23 Valery Veronica PA-C [address] [place] [address] 976325 Physician Paver Operator Dermatology 09/19/23 Rey Tay MD [address] [place] [address] 119555 MD Gastroenterology 09/20/23 Rocky Zepeda DO [address] [place] [address] 433325 Physician Gastroenterology 09/20/23 Philip Dumont MD [address] [place] [address] 583085 Physician Ophthalmology 09/22/23 Meredith Carrera PA-C [address] [place] [address] 695925 Assigned Gastroenterology Provider 11/01/23 Neil Kent MD [address] [place] [address] Dermatology 11/02/23 [place] [address] [place] [address] Neurological Surgery 12/26/23 Audrey Waite PA-C 500 [place] [address] Physician Paver Operator Dermatology 02/28/24 Valery Veronica PA-C [address] [place] [address] Physician Paver Operator Dermatology 04/10/24 Herminia Hatch MD [address] [place] [address] Assigned Rheumatology Provider 07/02/24 Jelena David OD [address] [place] [address] [place] K[place] [address] Ophthalmology 08/30/24 [place] [address] [place] [address] Assigned Neuroscience Provider 09/30/24 Maru Man PA-C [address] [place] [address] Physician Paver Operator Dermatology 10/03/24 Maru Man PA-C [address] [place] [address] Physician Paver Operator Dermatology 10/22/24 Jelena David OD [address] [place] [address] [place] [address] Assigned Surgical Provider 10/31/24 documented as of this encounter
--- OUTSIDE RECORDS SUMMARY | 2024-11-21 05:09 | XMS_ITS | Encounter Summary ---
Author Organization [place] Address [address] [place] [address] Care Team Providers Care Boarder Machine Name Role Phone Diana Desir Stanislav [facility] Unavailable Rain Galaviz PA-C Unavailable Tavia Wyatt MD Unavailable Erica Farrell APRN WOODEN BOAT BUILDER Unavailable Rich Barrett MD Unavailable [phone] Neil Kent MD Unavailable ThangKendrickDiana Stanislav [facility] Unavailable [phone] Livan Sharif MD Unavailable Catherine Cm MD Unavailable + Valery Veronica-C Unavailable Brea Quinn INFORMATION SECURITY ENGINEER WOODEN BOAT BUILDER Unavailable Esha Grimm PA-C Primary Care Provider [phone] Radha Lomeli APRN WOODEN BOAT BUILDER Unavailable Jelena David OD Unavailable Esha Grimm PA-C Unavailable [phone] Valery Veronica PA-C Unavailable Rey Tay MD Unavailable Duane Rocky Unavailable Philip Dumont MD Unavailable [phone] LoreMeredith mayers PA-C Unavailable Neil Kent MD Unavailable Juan Pablo Emmanuel MD Unavailable Audrey Waite PA-C Unavailable Valery Veronica PA-C Unavailable [phone] Herminia Hatch MD Unavailable Jelena David OD Unavailable Juan Pablo Emmanuel MD Unavailable Maru Man PA-C Unavailable Maru Man PA-C Unavailable Jelena David OD Unavailable Reason for Visit * Diagnostic Imaging XR (Routine) - Pending Review Specialty Diagnoses / Procedures Referred By Qian mayers Referred To Contact Radiology. Diagnoses Acute cough Procedures XR Chest 2 Views Estephania Flannery NP [address] [place] [address] Phone: tel: fax: Referral ID Status Reason Start Date Expiration Date V isits Requested Visits Authorized [id number] Pending Review 11/20/2024 11/20/2025 1 1 Encounter Details Date Type Department Care Team (Late st Contact Info) Description 11/20/2024 11:20 AM CDT Ancillary Procedure [facility] [address] [place] [address] Estephania Flannery NP [address] [place] [address] Acute cough Social History Tobacco Use [...] exercise at this level? 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 [address] [place] [phone] Esha Grimm PA-C [address] [place] [address] 04/16/2025 11:00 AM CDT Virtual Visit [facility] [address]th [place] [phone] Meredith Carrera PA-C [address] [place] [address] documented as of this encounter Procedures Procedure [...] CDT EXAM: XR CHEST 2 VIEWS LOCATION: [facility] DATE: 11/20/2024 INDICATION: Acute cough COMPARISON: 10/28/2024 Procedure Note Robert Ramos MD - 11/20/2024 EXAM: XR CHEST 2 VIEWS LOCATION: [facility] DATE: 11/20/2024 INDICATION: Acute cough COMPARISON: 10/28/2024 IMPRESSION: Negative chest. Estephania Flannery SALES PROMOTION MANAGER IMG DIAGNOSTIC IMAGING DONYA HERRERA Final Result documented in this encounter Visit Diagnoses Diagnosis Acute cough documented in this encounter Additional Health Concerns Infection Onset Date Last Indicated Resolved Time Rule Out COVID-19 11/20/2024 11/20/2024 Assessment Noted Time PHQ-9 Depression Total Score: 5 10/25/19 10:38 AM CDT documented as of this encounter Care Teams Boarder Machine Relationship Specialty Start Date End Date Esha Grimm PA-C [address] [place] [phone] PCP - General Family Medicine 05/04/23 Diana Desir, [facility] [address] [place] [address] Pharmacist Pharmacist 04/17/21 Rain Galaviz PA-C [address] [place] [address] [address] [place] [address] Physician Blow Down Helper Dermatology 04/28/21 Tavia Wyatt MD [address] [place] [address] [address] [place] [address] Dermatology 07/14/21 Erica Farrell APRN WOODEN BOAT BUILDER [address] [place] 627955 Nurse Practitioner Cardiovascular Disease 09/09/21 Rich Barrett MD [address] [place] 736055 Physician Ophthalmology 01/21/22 Neil Kent MD 500 [place], [place] 9[address]375 Dermatology 02/24/22 Diana Desir, [facility] [address] [place], [place] 942486 Assigned MTM Pharmacist 04/07/22 Livan Sharif MD [address] [place] 268945 Cardiovascular Disease 05/14/22 Catherine Cm MD [address] [place] 876805 Cardiovascular Disease 07/21/22 Valery Veronica, PA-C 909 [place], [place] 827[address] Physician Blow Down Helper Dermatology 07/21/22 Brea Quinn APRN WOODEN BOAT BUILDER 500 [place] [address] Nurse Practitioner Dermatology 09/21/22 Radha Lomeli APRN WOODEN BOAT BUILDER [address] [place] 813675 Assigned Heart and Vascular Provider 05/28/23 Jelena David OD [address] [facility] [place] [address] Ophthalmology 06/15/23 Esha Grimm PA-C [address] [place] [address]49[address] Assigned PCP 07/16/23 Valery Veronica PA-C [address] [place] [address] 141905 Physician Blow Down Helper Dermatology 09/19/23 Rey Tay MD [address] [place] [address] 762195 MD Gastroenterology 09/20/23 Rocky Zepeda DO [address] [place] [address] 366015 Physician Gastroenterology 09/20/23 Philip Dumont MD [address] [place] [address] 331695 Physician Ophthalmology 09/22/23 Meredith Carrera PA-C [address] [place] [address] 371755 Assigned Gastroenterology Provider 11/01/23 Neil Kent MD [address] [address] Dermatology 11/02/23 [place] [address] [facility] [place] [address] Neurological Surgery 12/26/23 Audrey Waite PA-C [address] [place] [address] Physician Blow Down Helper Dermatology 02/28/24 Valery Veronica PA-C 239361 [address] [place] [address] Physician Blow Down Helper Dermatology 04/10/24 Herminia Hatch MD [address] [place] [address] Assigned Rheumatology Provider 07/02/24 Jelena David OD [address] [place] [address] [place] K[place] [address] MD Ophthalmology 08/30/24 [place] [address] [place] [address] Assigned Neuroscience Provider 09/30/24 Maru Man PA-C [address] [place] [address] Physician Blow Down Helper Dermatology 10/03/24 Maru Man PA-C [address] [place] [address] Physician Blow Down Helper Dermatology 10/22/24 Jelena David OD [address] [place] [address] [place] [address] Assigned Surgical Provider 10/31/24 documented as of this encounter
--- OUTSIDE RECORDS SUMMARY | 2024-11-21 05:09 | XMS_ITS | Encounter Summary ---
Author Organization [facility] Address [address] [place] [address] Care Team Providers Care General Merchandise Salesperson Name Role Phone Lita Oseguera Unavailable Unavailable Marija Edgar APRN RETORT LOAD EXPEDITER Primary Care Provider + Marija Edgar APRN RETORT LOAD EXPEDITER Unavailable [phone] Keisha Dotson MD Unavailable Diana Desir [facility] Unavailable Rain Galaviz PA-C Unavailable Tavia Wyatt MD Unavailable Erica Farrell APRN [facility] Unavailable Tavia Wyatt MD Unavailable [phone] Rich Barrett MD Unavailable [phone] Neil Kent MD Unavailable Roney Story DPM Unavailable Erica Farrell APRN RETORT LOAD EXPEDITER Unavailable Diana Desir [facility] Unavailable [phone] Jelena David OD Unavailable [phone] Galo Burrell MD Unavailable Unavailable Livan Sahrif MD Unavailable Livan Sharif MD Unavailable IsraynaCatherine boothe MD Unavailable + Valery Veronica PA-C Unavailable [phone] IsCatherine hobbs MD Unavailable + Johnny Murillo MD Unavailable [phone] Brea Quinn MEDICARE CONTACT SPECIALIST RETORT LOAD EXPEDITER Unavailable [phone] Brea Quinn MEDICARE CONTACT SPECIALIST RETORT LOAD EXPEDITER Unavailable [phone] Jose Francisco Johnson MD Unavailable Livan Sharif MD Unavailable Isfaby, Catherine Marques MD Unavailable + Sydnie Martinez RN Unavailable Unavailable Alfonso Renteria MD Unavailable [phone] Esha Grimm PA-C Primary Care Provider Cheng Todd PA-C Unavailable Radha Lomeli MEDICARE CONTACT SPECIALIST RETORT LOAD EXPEDITER Unavailable [phone] Jelena David SONJA Unavailable Pao Joseph RN Unavailable Unavailable Esha Grimm PA-C Unavailable [phone] Valery Veronica PA-C Unavailable [phone] Rey Tay MD Unavailable Rocky Zepeda DO Unavailable Philip Dumont MD Unavailable [phone] Meredith Carrera PA-C Unavailable [phone] Neil Kent MD Unavailable Juan Pablo Emmanuel MD Unavailable Audrey Waite PA-C Unavailable Valery Veronica PA-C Unavailable [phone] Herminia Hatch MD Unavailable Jelena David OD Unavailable [phone] Juan Pablo Emmanuel MD Unavailable [phone] Maru Man PA-C Unavailable [phone] Maru Man PA-C Unavailable +- Jelena David OD Unavailable Encounter Details Date Type Department Care Team (Late st Contact Info) Description 04/07/2022 [facility] [place], [place] Medical Advice [address] [phone] Diana Desir, [facility] [address] [place] [address] Social History Tobacco Use Types [...] How often do you attend sabianism or mu-ism serv ices? Never 09/22/2021 Do [...] in a fpc (including now)? No 09/22/2021 Mcdaniel Depression Scale Answer Date Recorded Mcdaniel Depression Score 5 01/14/2021 Last EPDS Self Harm Result Not on file 01/14 Education Answer Date Recorded What is the highest level of school you have completed or the highest degree you have received? 12th grade 08/07/2020 Comments No Sex and Gender Information Value Date Recorded Sex Assigned at Female 03/02/2021 5:45 PM CDT Legal Sex Female 4:13 AM COKE INSPECTOR Gender Identity Female 03/02/2021 5:45 PM [...] Description 11/21/2024 7:00 AM CDT Office Visit [address] [phone] Maru Man PA-C [address] [address] 12/20/2024 2:30 PM CDT Office Visit [facility] [id number] [place] [phone] Esha Grimm PA-C [address] [place] [phone] 04/16/2025 11:00 AM CDT Virtual Visit [facility] [address] [place] [phone] Meredith Carrera PA-C [address] [place] [address] documented as of this encounter Visit Diagnoses Not on filedocumented in this encounter Additional Health Concerns Infection Onset Date Last Indicated Resolved Time Rule Out COVID-19 04/26/2022 04/26/2022 04/26/2022 6:47 AM CDT Rule Out COVID-19 05/17/2022 05/17/2022 05/17/2022 10:20 PM COKE INSPECTOR Rule Out COVID-19 06/09/2022 06/09/2022 06/09/2022 9:35 AM COKE INSPECTOR COVID-19 06/09/2022 06/09/2022 06/30/2022 11:4 1 PM COKE INSPECTOR Rule Out COVID-19 11/10/2022 11/10/2022 11/11/2022 [...] as of this encounter Care Teams General Merchandise Salesperson Relationship Specialty Start Date End Date Marija Edgar APRN RETORT LOAD EXPEDITER PCP - General Nurse Practitioner 04/30/20 04/14/23 Esha Grimm PA-C [address] [place] [phone] PCP - General Family Medicine 05/04/23 Lita Oseguera Personal Advocate & Liaison (PAL) 02/28/20 03/27/23 Marija Edgar APRN RETORT LOAD EXPEDITER Assigned PCP 06/08/20 04/29/23 Keisha Dotson MD [address] [place] [address] Assigned Neuroscience Provider 06/04/20 04/01/23 [facility] [address] [place] [address] Pharmacist Pharmacist 04/17/21 Rain Galaviz PA-C [address] [place] [address] [address] [facility] [place] [address] Physician Rn Imcu Dermatology 04/28/21 Tavia Wyatt MD [address] [place] [address] [address] [place] [address] Dermatology 07/14/21 Erica Farrell APRN RETORT LOAD EXPEDITER [address] [facility] [address] [place] [address] Nurse Practitioner Cardiovascular Disease 09/09/21 Tavia Wyatt MD [address] [place] [address] Assigned Surgical Provider 11/29/21 05/07/22 Rich Barrett MD [address] [place] [address] Physician Ophthalmology 01/21/22 Neil Kent MD [address] [place] [address] Dermatology 02/24/22 Roney Story DPM [address] [facility] [address] [place] [address] Assigned Musculoskeletal Provider 03/20/22 08/13/22 Erica Farrell APRN RETORT LOAD EXPEDITER [address] [place] [address] Assigned Heart and Vascular Provider 04/03/22 04/16/22 Diana Desir, [facility] [address] [place] [address] Assigned MTM Pharmacist 04/07/22 Jelena David OD [address] [facility] [place] [address] Assigned Surgical Provider 05/08/22 10/08/22 Galo Burrell MD Assigned Heart and Vascular Provider 04/17/22 06/11/22 Livan Sharif MD [address] [facility] [address] [place] [id number] Cardiovascular Disease 05/14/22 Livan Sharif MD [id number] [place] [address] Assigned Heart and Vascular Provider 06/12/22 07/23/22 Catherine Cm MD [address] [address] [place] [id number] Cardiovascular Disease 07/21/22 Valery Veronica, PA-C [address] [place] [address] 320265 Physician Rn Imcu Dermatology 07/21/22 Catherine Cm MD [address] [address] [place] [id number] Assigned Heart and Vascular Provider 07/24/22 11/05/22 Johnny Murillo MD [address] [place] [address] 137884 Assigned Musculoskeletal Provider 08/14/22 10/08/22 Brea Quinn APRN RETORT LOAD EXPEDITER [address] [place] [address] [id number] Nurse Practitioner Dermatology 09/21/22 Brea Quinn APRN RETORT LOAD EXPEDITER [address] [place] [address] [place] [id number] Assigned Surgical Provider 10/09/22 05/01/24 [place] [address] [place] [address] [id number] Assigned Musculoskeletal Provider 10/09/22 05/01/24 Livan Sharif MD [address] [facility] [address] [place] [address] Assigned Heart and Vascular Provider 11/06/22 11/12/22 Catherine Cm MD [address] [facility] [address] [place] [address] Assigned Heart and Vascular Provider 11/13/22 05/27/23 Sydnie Martinez RN Personal Advocate & Liaison (PAL) Family Medicine 03/28/23 07/31/23 Alfonso Renteria MD [address] [facility] [address] [place] [address] Assigned Neuroscience Provider 04/02/23 09/29/24 Cheng Todd PA-C [address] [place] [address] [phone] Assigned PCP 04/30/23 07/15/23 Radha Lomeli APRN RETORT LOAD EXPEDITER [address] [place] [address] Assigned Heart and Vascular Provider 05/28/23 Jelena David OD [address] [facility] [place] [address] Ophthalmology 06/15/23 Pao Joseph RN Personal Advocate & Liaison (PAL) Nurse 08/01/23 11/07/23 Esha Grimm PAUcheC [address] [place] [phone] Assigned PCP 07/16/23 Valery Veronica PA-C [address] [place] [address] Physician Rn Imcu Dermatology 09/19/23 Rey Tay MD [address] [place] [address] MD Gastroenterology 09/20/23 Rocky Zepeda DO [address] [place] [address] 457345 Physician Gastroenterology 09/20/23 Philip Dumont MD [address] [place] [address] Physician Ophthalmology 09/22/23 Meredith Carrera PA-C [address] [place] [address] [phone] Assigned Gastroenterology Provider 11/01/23 Neil Kent MD [address] [phone] Dermatology 11/02/23 [place] [address] [facility] [place] [address] Neurological Surgery 12/26/23 Audrey Waite PA-C [address] [place] [address] Physician Rn Imcu Dermatology 02/28/24 Valery Veronica PA-C [address] [facility] [place] [address] Physician Rn Imcu Dermatology 04/10/24 Herminia Hatch MD [address] [place] [address] Assigned Rheumatology Provider 07/02/24 Jelena David OD [address] [place] [address] [place] [address] Ophthalmology 08/30/24 [place] [address] [place] [address] Assigned Neuroscience Provider 09/30/24 Maru Man PA-C [address] [place] [address] Physician Rn Imcu Dermatology 10/03/24 Maru Man PA-C [address] [place] [address] Physician Rn Imcu Dermatology 10/22/24 Jelena David OD [address] [place] [address] [place] [address] Assigned Surgical Provider 10/31/24 documented as of this encounter
--- OUTSIDE RECORDS SUMMARY | 2024-11-21 05:09 | XMS_ITS | Encounter Summary ---
Author Organization [facility] Address [address] [place] [address] Care Team Providers Care Office Sweeper Name Role Phone Diana Desir Stanislav [facility] Unavailable Rain Galaviz PA-C Unavailable [phone] Tavia Wyatt MD Unavailable Erica Farrell APRN SUPERVISOR FISHING Unavailable Rich Barrett MD Unavailable [phone] Neil Kent MD Unavailable ThangKendrickDiana Stanislav [facility] Unavailable [phone] Livan Sharif MD Unavailable Catherine Cm MD Unavailable + Valery Veronica-C Unavailable Brea Quinn REGISTERED LAND SURVEYOR SUPERVISOR FISHING Unavailable Esha Grimm PA-C Primary Care Provider Radha Lomeli APRN SUPERVISOR FISHING Unavailable Jelena David OD Unavailable Esha Grimm PA-C Unavailable [phone] Valery Veronica PA-C Unavailable [phone] Rey Tay MD Unavailable Rocky Zepeda DO Unavailable Philip Dumont MD Unavailable Meredith Carrera PA-C Unavailable [phone] Neil Kent MD Unavailable Juan Pablo Emmanuel MD Unavailable [phone] Audrey Waite PA-C Unavailable [phone] Valery Veronica PA-C Unavailable Herminia Hatch MD Unavailable Jelena David OD Unavailable Juan Pablo Emmanuel MD Unavailable [phone] Maru Man-C Unavailable [phone] Maru Man-C Unavailable [phone] Jelena David OD Unavailable Reason for Referral * Consultation (Routine: Next available opening) - Pending Review Specialty Diagnoses / Procedures Referred By Qian mayers Referred To Contact Gastroenterology Diagnoses Eosinophilic esophagitis Meredith Carrera PA-C [address] [place] [address] Phone: tel: fax: Referral ID Status Reason Start Date Expiration Date V isits Requested Visits Authorized [id number] Pending Review 11/02/2024 11/02/2025 1 1 Scheduling [...] gastric biopsies for H Pylori Preferred Location: [facility] Patient Scheduling Instructions: [facility] will call you to coordinate your care as prescribed by the provider. If you don t hear from a hardware supplies sales representative within 2 business days, please call . Comments Please be aware that coverage of these services is subject to the terms and limitations of your health insurance plan. Call member services at your health plan with any benefit or coverage questions. [facility] will call you to coordinate your care as prescribed by the provider. If you don t hear from a hardware supplies sales representative within 2 business days, please call . * Nutrition (Routine: Next available opening) - Pending Review Specialty Diagnoses / Procedures Referred By Qian t Referred To Contact Gastroenterology Diagnoses Eosinophilic esophagitis Meredith Carrera PA-C [address] [place] [address] Phone: tel: fax: Nelly [place], RD [address] [place] [address] Phone: tel: fax: Referral ID Status Reason Start Date Expiration Date V isits Requested Visits Authorized [id number] Pending Review 11/02/2024 11/02/2025 1 1 Question [...] Description 11/02/2024 7:45 AM CDT Virtual Visit [facility] Gastroenterology Clinic [address] [place] [address] Meredith Carrera PA-C [address] [place] [address] Bloating symptom (Primary Dx); Irregular bowel habits; [...] Answer Date Recorded PHQ-2 Score 1 10/24/2024 [employer] [place] [employer] [facility] - Occupational Stress [...] exercise at this level? 20 min 05/07/2024 Sheridan Depression Scale Answer Date Recorded Sheridan [...] PM CDT Legal Sex Female 4:13 AM WORKFORCE DEVELOPMENT SPECIALIST Gender Identity Female 03/02/2021 5:45 [...] to obtain follow up with [facility] psych arnp and initiate a dairy free diet with [...] a low FODMAP diet provided by the [facility]:[email or web address] -- Many patients do benefit from discussion with a wool and pelt grader to discuss these dietary options -- Attempt [...] times daily Please call my nurse Desmond ([phone]) or Damaris ([phone] ) with any questions or concerns. See below for any additional questions and scheduling guidelines. Sign up for [employer]: [employer] patient portal serves as a secure platform for accessing your medical records from the [facility]. Additionally, [employer] facilitates easy, timely, and securemessaging with your care team. If you have not signed up, you may do so by using the provided code or calling [phone]. Coordinating your care after your visit: There are multiple options for scheduling your follow-up care based on your provider's recommendation. How do I schedule a follow-up clinic appointment: After your appointment, you may receive scheduling assistance with the Clinic Coordinators by having a seat in the waiting room and a Mark Up Designer will call you up to schedule. Virtual visits or after you leave the clinic: Your provider has placed a follow-up order in the [employer] portal for scheduling your return appointment. A member of the scheduling team will contact you to schedule. [employer] Scheduling: Timely scheduling through [employer] is advised to ensure appointment availability. Call to schedule: You may schedule your follow-up appointment(s) by calling [phone], option 1. How do I schedule my endoscopy or colonoscopy procedure: If a procedure, such as a colonoscopy or upper endoscopy was ordered by your provider, the scheduling team will contact you to schedule this procedure. Or you may choose to call to schedule at [phone], option 2. Please allow 20-30 minutes when scheduling a procedure. How do I get my blood work done? To get your blood work done, you need to schedule a lab appointment at an [facility]. There are multiple ways to schedule: At the clinic: The Mark Up Designer you meet after your visit can help you schedule a lab appointment. MyChart scheduling: [employer] offers online lab scheduling at all [facility] laboratory locations. Call to schedule: You can call [phone] to schedule your lab appointment. How do I schedule my imaging study: To schedule imaging studies, such as CT scans, ultrasounds, MRIs, or X-rays, contact Imaging Services at [phone]. How do I schedule a referral to another doctor: If your provider recommended a referral to another specialist(s), the referral order was placed by your provider. You will receive a phone call to schedule this referral, or you may choose to call the number attached to the referral to self-schedule. For Post-Visit Question(s): For any inquiries following today's visit: Please utilize [employer] messaging and allow 48 hours for reply or contact the Call Center during normal business hours at [phone], option 3. For Emergent After-hours questions, contact the On-Call GI Fellow through the [facility] at . In addition, you may contact your Nurse directly using the provided contact information. Test Results: Test results will be accessible via [employer] in compliance with the CuresAct. This means [...] of Gastroenterology, Hepatology, and Nutrition [facility] documented in this encounter Progress Notes * Meredith Carrera PA-C - 11/02/2024 7:45 AM CDT Images from the original note were not included. Virtual Visit Details Type of service: Video Visit Video Start Time: 7:50 AM Video End Time:8:11 AM Originating Location (pt. Location): Home Distant Location (provider location): On-site Platform used for Video Visit: [facility] Gastroenterology Visit for: Kim Johnson 2000 Reason for Visit: chief complaint Referred by: Jasvir / Mar [facility] [id number] Patient Care Team: Esha Grimm PA-C as PCP - General (Family Medicine) Diana Desir RPH as Pharmacist (Pharmacist) Rain Galaviz PA-C as Physician Nipple Machine Operator (Dermatology) Tavia Wyatt MD as MD (Dermatology) Erica Farrell APRN SUPERVISOR FISHING as Nurse Practitioner (Cardiovascular Disease) Rich Barrett MD as Physician (Ophthalmology) Neil Kent MD as MD (Dermatology) Diana Desir RP as Assigned MTM Pharmacist Livan Sharif MD as MD (Cardiovascular Disease) Catherine Cm MD as MD (Cardiovascular Disease) Valery Veronica PA-C as Physician Nipple Machine Operator (Dermatology) Brea Quinn APRN SUPERVISOR FISHING as Nurse Practitioner (Dermatology) Radha Lomeli APRN SUPERVISOR FISHING as Assigned Heart and Vascular Provider Jelena David OD as MD (Ophthalmology) Esha Grimm PA-C as Assigned PCP Valery Veronica PA-C as Physician Nipple Machine Operator (Dermatology) Rey Tay MD as (Gastroenterology) Rocky Zepeda DO as Physician (Gastroenterology) Philip Dumont MD as Physician (Ophthalmology) Meredith Carrera PA-C as Assigned Gastroenterology Provider Neil Kent MD as (Dermatology) Juan Pablo Emmanuel MD as MD (Neurological Surgery) Audrey Waite PA-C as Physician Nipple Machine Operator (Dermatology) Valery Veronica PA-C as Physician Nipple Machine Operator (Dermatology) Herminia Hatch MD as Assigned Rheumatology Provider Jelena David OD as MD (Ophthalmology) Juan Pablo Emmanuel MD as Assigned Neuroscience Provider Maru Man PA-C as Physician Nipple Machine Operator (Dermatology) Maru Man PA-C as Physician Nipple Machine Operator (Dermatology) Jelena David OD as Assigned Surgical [...] Bowel patterns are occurring daily consistent with Jenkins Stool Scale Type 4/5. Described as 50/50between [...] Ablation SVT; Surgeon: Galo Burrell MD; Location: [facility] CARDIAC PLATE FITTER ESOPHAGOSCOPY, GASTROSCOPY, DUODENOSCOPY (EGD), COMBINED N/A 06/26/2021 [...] 2021 Other Topics Concern Parent/sibling w/ CABG, [place] or angioplasty before 65F 55M? No Social [...] 20 min Stress: Stress Concern Present (05/07/2024) [employer] [place] [employer] - Occupational Stress Questionnaire Feeling of Stress : To some extent Social Connections: Moderately Isolated (05/07/2024) Social Connection and Isolation Panel [NHANES] Frequency of Communication with Friends and Family: Three times a week Frequency of Social Gatherings with Friends and Family: Once a week Attends Confucianist Services: 1 to 4 times per year [...] Medium Added automatically from request for surgery [id number] Left ureteral stone 05/27/2020 Priority: Medium Added automatically from request for surgery [id number] Head ache 02/18/2020 Priority: Medium Seizure (H) [...] Hernia - 3 cm EGD 09/12/2023 EREFS [id number]. Additional findings were notable for 3 cm [...] Inessa WD, Yoli BMR. Am J Gastroenterol 2020;115:3196-3444).This was discussed with the patient in detail. The quality of research studies was described (retrospective vs prospective). Data from recent review article provided (Duane MCGOWAN, John PO. Proton Pump Inhibitors in 2020: Pros, Cons, and Everything in Between. Foregut. November 2020. Doi:10.1177/[id number]). The value of joint decision making was [...] to obtain follow up with [facility] psych arnp and per patient request initiate a dairy [...] a low FODMAP diet provided by the [facility]:[email or web address] -- Many patients do benefit from discussion with a wool and pelt grader to discuss these dietary options -- Attempt [...] of Gastroenterology, Hepatology, and Nutrition [facility] Documentation assisted by voice recognition and documentation system. documented in this encounter Nursing Notes * Kiah Dominguez - 11/02/2024 7:45 AM CDT Current patient location: [address] [place] [address] Is the patient currently in the state of [place]? YES Visit mode: VIDEO If the visit is dropped, the patient can be reconnected by:VIDEO VISIT: Send to e-mail at: Will anyone else be joining the visit? NO (If patient encounters technical issues they should call [phone] :[id number]) Are changes needed to the allergy or medication list? No Are refills needed on medications prescribed by this physician? NO Rooming Documentation: Unable to complete questionnaire(s) due to time Reason for visit: CHAVA Dominguez VVF documented in this encounter Plan of Treatment Upcoming Encounters Date Type Department Care Team (Late st Contact Info) Description 11/21/2024 7:00 AM CDT Office Visit [address] [phone] Maru Man PA-C [address] [place] [address] 12/20/2024 2:30 PM CDT Office Visit [facility] [address] [place] [address] Esha Grimm PA-C [address] [place] [address] 04/16/2025 11:00 AM CDT Virtual Visit [facility] Gastroenterology Clinic [address] [place] [address] Meredith Carrera PA-C [address] [place] [address] Pending Results Name Type Priority Associated Diagnoses [...] Associated Diagnoses Orde r Schedule Adult Nutrition Coating Manager Referral Referral Routine: Next available opening Eosinophilic esophagitis Expected: 11/02/2024 (Approximate), Expires: 11/02/2025 Adult GI Coating Manager Referral - Procedure Only Referral Routine: Next [...] as of this encounter Care Teams Office Sweeper Relationship Specialty Start Date End Date Esha Grimm PA-C [address] [place] [phone] PCP - General Family Medicine 05/04/23 Diana Desir [facility] [address] [place], [place] [phone] Pharmacist Pharmacist 04/17/21 Rain Galaviz PA-C [address] [place] [address] [address] [place] [address] Physician Nipple Machine Operator Dermatology 04/28/21 Tavia Wyatt MD [address] [place] [address] [address] [place] [address] Dermatology 07/14/21 Erica Farrell APRN SUPERVISOR FISHING [address] [facility] [address] [place] [address] Nurse Practitioner Cardiovascular Disease 09/09/21 Rich Barrett MD [address] [place] [address] Physician Ophthalmology 01/21/22 Neil Kent MD [address] [place], [place] 6[address] Dermatology 02/24/22 [facility] [address] [place], [place] [address] Assigned MTM Pharmacist 04/07/22 Livan Sharif MD [address] [place] [address] Cardiovascular Disease 05/14/22 Catherine Cm MD [address] [place] [phone] Cardiovascular Disease 07/21/22 Valery Veronica, PA-C [address] [place], [place] [address] Physician Nipple Machine Operator Dermatology 07/21/22 Brea Quinn APRN SUPERVISOR FISHING [address] [place] [address] Nurse Practitioner Dermatology 09/21/22 Radha Lomeli APRN SUPERVISOR FISHING [address] [place] [address] Assigned Heart and Vascular Provider 05/28/23 Jelena David OD [address] [facility] [place] [address] MD Ophthalmology 06/15/23 Esha Grimm PA-C [address] [place] [address] Assigned PCP 07/16/23 Valery Veronica PA-C [address] [place] [address] Physician Nipple Machine Operator Dermatology 09/19/23 Rey Tay MD [address] [place] [address] MD Gastroenterology 09/20/23 Rocky Zepeda DO [address] [place] [address] 031545 Physician Gastroenterology 09/20/23 Philip Dumont MD [address] [place] [address] 366475 Physician Ophthalmology 09/22/23 Meredith Carrera PA-C [address] [place] [address] [phone] Assigned Gastroenterology Provider 11/01/23 Neil Kent MD [address] [place] [phone] Dermatology 11/02/23 [place] [address] [place] [address] Neurological Surgery 12/26/23 Audrey Waite PA-C [address] [place] [address] Physician Nipple Machine Operator Dermatology 02/28/24 Valery Veronica PA-C [id number] [place] [address] Physician Nipple Machine Operator Dermatology 04/10/24 Herminia Hatch MD [address] [place] [address] Assigned Rheumatology Provider 07/02/24 Jelena David OD [address] [place] [address] [place] [address] Ophthalmology 08/30/24 [place] [address] [place] [address] Assigned Neuroscience Provider 09/30/24 Maru Man PA-C [address] [place] [address] Physician Nipple Machine Operator Dermatology 10/03/24 Maru Man PA-C [address] [place] [address] Physician Nipple Machine Operator Dermatology 10/22/24 Jelena David OD [address] [place] [address] [place] [address] Assigned Surgical Provider 10/31/24 documented as of this encounter
--- OUTSIDE RECORDS SUMMARY | 2024-11-21 05:09 | XMS_ITS | Encounter Summary ---
Author Organization [facility] Address [address] [place] [address] Care Team Providers Care Linoleum Mechanic Name Role Phone Lita Osegeura Unavailable Unavailable Marija Edgar APRN BRIM CURLER Primary Care Provider + Chanelle Mccann APRN CNM Unavailab le Kyara De La Fuente RN Unavailable [phone] Marija Edgar APRN BRIM CURLER Unavailable Mynor Broussard MD Unavailable [phone] Keisha Dotson MD Unavailable Stacey Briones SAW SUPERINTENDENT Unavailable Lesley Guillermo CHW Unavailable Mary Mejia Unavailable Unavailable Lita Oseguera Unavailable Unavailable Galo Burrell MD Unavailable Unavailable Cristina Wood Unavailable Lesley Guillermo CHW Unavailable Meredith Bedoya Unavailable Unavailable Cristina Wood Unavailable Diana Desir [facility] Unavailable Rain Galaviz PA-C Unavailable [phone] Summer Lara MD Unavailable [phone] Summer Lara MD Unavailable [phone] Summer Lara MD Unavailable [phone] Tavia Wyatt MD Unavailable [phone] Johnny Murillo MD Unavailable [phone] Erica Farrell SINGLE FOLD MACHINE OPERATOR BRIM CURLER Unavailable Vikas Teresitakaren Watson [facility] Unavailable Tavia Wyatt MD Unavailable [phone] Diana Desir [facility] Unavailable [phone] Rich Barrett MD Unavailable Neil Kent MD Unavailable Roney StoryM Unavailable Erica Farrell SINGLE FOLD MACHINE OPERATOR BRIM CURLER Unavailable Diana Desir [facility] Unavailable [phone] Jelena David OD Unavailable Galo Burrell MD Unavailable Unavailable Livan Sharif MD Unavailable Livan Sharif MD Unavailable Catherine Cm MD Unavailable + Valery Veronica PA-C Unavailable [phone] Catherine Cm MD Unavailable + Johnny Murillo MD Unavailable +[phone] Brea Quinn APRN BRIM CURLER Unavailable [phone] Brea Quinn APRN BRIM CURLER Unavailable [phone] Jose Francisco Johnson MD Unavailable Livan Sharif MD Unavailable + Catherine Cm MD Unavailable + Sydnie Martinez RN Unavailable Unavailable Alfonso Renteria MD Unavailable [phone] Esha Grimm PA-C Primary Care Provider Perez Chengjc Fish PA-C Unavailable Armani Radha Stovall ARLENE GRANADOS Unavailable Jelena David OD Unavailable Pao Joseph RN Unavailable Unavailable Esha Grimm PA-C Unavailable [phone] Valery Veronica PA-C Unavailable Rey Tay MD Unavailable Rocky Zepeda DO Unavailable Philip Dumont MD Unavailable Meredith Carrera PA-C Unavailable [phone] Neil Kent MD Unavailable Juan Pablo Emmanuel MD Unavailable Audrey Waite PA-C Unavailable Valery Veronica PA-C Unavailable Herminia Hatch MD Unavailable Jelena David OD Unavailable Juan Pablo Emmanuel MD Unavailable Maru Man PA-C Unavailable Maru Man PA-C Unavailable [phone] Jelena David OD Unavailable Reason for Visit * Reason Onset Date Comments MyChart Communication 09/08/2020 Encounter Details Date Type Department Care Team (Latest Contact Info) Description 09/08/2020 MyC Medical Advice [address] [address] Marija Edgar APRN [facility] [address] [place] [address] MyChart Communication Social History Tobacco Use [...] Answer Date Recorded PHQ-2 Score 0 08/12/2020 [facility] [...] CDT Legal Sex Female 4:13 AM JEWELRY SORTER Gender Identity Female 03/02/2021 5:45 PM CDT Sexual Orientation Straight 02/28/2020 12 :51 AM CDT COVID-19 Exposure Response Date Recorded In the last month, have you been in contact with someone who was confirmed or suspected to have Coronavirus / COVID-19? No / Unsure 09/09/2020 10:09 AM JEWELRY SORTER documented as of this encounter Miscellaneous Notes * Telephone Encounter - Natasha Luis RN - 09/09/2020 7:29 AM CST See [employer] message, cardio ordered, pt cannot view echo [...] RN, BSN Message handled by CLINIC NURSE.' LRY SORTER * Telephone Encounter - Ever Cardozo MA - 09/09/2020 7:08 AM CST Triage, could you please see if results are posted yet in regards to patients ultrasound. Ever Cardozo FELL CUTTER (AAMA) LRY SORTER documented in this encounter Plan of Treatment Upcoming Encounters Date Type Department Care Team (Late st Contact Info) Description 11/21/2024 7:00 AM CDT Office Visit [facility] [address] [phone] Maru Man PA-C [address] [place] [address] 12/20/2024 2:30 PM CDT Office Visit [facility] [address] [place] [address] Esha Grimm PA-C [address] [place] [address] 04/16/2025 11:00 AM CDT Virtual Visit [facility] [address] 4th [place] [phone] Meredith Carrera PA-C [address] [place] [address] documented as of this encounter Visit Diagnoses Not on filedocumented in this encounter Additional Health Concerns Infection Onset Date Last Indicated Resolved Time Rule Out COVID-19 09/24/2020 09/24/2020 09/24/2020 9:24 AM CDT Rule Out COVID-19 11/05/2020 11/05/2020 11/06/2020 1:09 PM CDT Rule Out COVID-19 05/11/2021 05/11/2021 05/13/2021 10:18 AM CDT Rule Out COVID-19 07/13/2021 07/13/2021 07/14/2021 3:04 PM JEWELRY SORTER Rule Out COVID-19 07/18/2021 07/18/2021 07/20/2021 1:56 PM JEWELRY SORTER COVID-19 07/18/2021 07/18/2021 08/08/2021 11:3 9 PM JEWELRY SORTER Rule Out COVID-19 12/18/2021 12/18/2021 12/19/2021 11:34 AM CDT Rule Out COVID-19 02/24/2022 02/24/2022 02/25/2022 1:08 PM CDT Rule Out COVID-19 04/26/2022 04/26/2022 04/26/2022 6:47 AM CDT Rule Out COVID-19 05/17/2022 05/17/2022 05/17/2022 10:20 PM JEWELRY SORTER Rule Out COVID-19 06/09/2022 06/09/2022 06/09/2022 9:35 AM JEWELRY SORTER COVID-19 06/09/2022 06/09/2022 06/30/2022 11:4 1 PM JEWELRY SORTER Rule Out COVID-19 11/10/2022 11/10/2022 11/11/2022 12:17 PM CDT Rule Out COVID-19 03/07/2023 03/07/2023 03/07/2023 1:20 PM CDT Rule Out COVID-19 12/26/2023 12/26/2023 12/26/2023 9:50 AM CDT Rule Out COVID-19 04/09/2024 04/09/2024 04/10/2024 6:48 PM CDT Rule Out COVID-19 10/04/2024 10/04/2024 10/05/2024 9:42 AM CDT Rule Out COVID-19 11/20/2024 11/20/2024 Assessment Noted Time PHQ-9 Depression Total Score: 9 06/25/20 20 7:04 AM JEWELRY SORTER documented as of this encounter Care Teams Linoleum Mechanic Relationship Specialty Start Date End Date Marija Edgar APRN BRIM CURLER PCP - General Nurse Practitioner 04/30/20 04/14/23 Esha Grimm PAUcheC [address] [place] [phone] PCP - General Family Medicine 05/04/23 Lita Oseguera Personal Advocate & Liaison (PAL) 02/28/20 03/27/23 Chanelle Mccann APRN [facility] [address] [address] Assigned OBGYN Provider 05/02/2005/09 Kyara De La Fuente, RN Specialty Mobile Application Development Lead Neurology 06/04/20 03/05/21 Marija Edgar APRN CNP Assigned PCP 06/08/20 04/29/23 Mynor Broussard MD [address] 860795 Assigned Surgical Provider 06/01/20 11/28/21 Keisha Dotson MD [address] [place], [place] 7789[address] Assigned Neuroscience Provider 06/04/20 04/01/23 Stacey Briones, [facility] Lead Mobile Application Development Lead Primary Care - CC 08/11/2012/30 Lesley Guillermo, [facility] Community Health Worker 08/11/2010/01 Mary Mejia Financial Resource Worker 09/02/20 10/06/20 Lita Oseguera Personal Advocate & Liaison (PAL) Family Medicine 09/10/20 09/21/20 Galo Burrell MD Assigned Heart and Vascular Provider 10/05/20 04/02/22 Cristina Wood Financial Resource Worker 10/07/20 10/14/20 Lesley Guillermo, [facility] Community Health Worker 10/23/2012/30 Meredith Bedoya Financial Resource Worker 10/23/20 11/23/20 Cristina Wood Financial Resource Worker 02/09/21 02/09/21 Diana Desir, [facility] [place] [address] Pharmacist Pharmacist 04/17/21 Rain Galaviz PA-C [address] [facility] [place] [address] Physician Electronic Scanner Operator Dermatology 04/28/21 Summer Lara MD [address] [place] [address] [place] [address] Assigned OBGYN Provider 05/10/2105/23 Summer Lara MD [address] [facility] [place] [address] Assigned OBGYN Provider 05/31/21 Summer Lara MD [address] [place] [address] [place] [address] Assigned OBGYN Provider 05/24/2105/30 Tavia Wyatt MD [address] [facility] [place] [address] Dermatology 07/14/21 Johnny Murillo MD [address] [place] [address] Assigned Musculoskeletal Provider 08/30/21 03/17/22 Erica Farrell APRN BRIM CURLER [address] [facility] [address] [place] [address] Nurse Practitioner Cardiovascular Disease 09/09/21 Teresita eBan, [facility] [address] [place] [address] Pharmacist Pharmacist 09/24/21 09/29/21 Tavia Wyatt MD [address] [place] [address] Assigned Surgical Provider 11/29/21 05/07/22 Diana Desir, [facility] [address] [place] [address] Assigned MTM Pharmacist 01/02/22 Rich Barrett MD [facility] [place] 0[address] Physician Ophthalmology 01/21/22 Neil Kent MD [address] [place], [place] 853245 Dermatology 02/24/22 Roney Story DPM [address] [facility] [address] [place] [address] Assigned Musculoskeletal Provider 03/20/22 08/13/22 Erica Farrell APRN BRIM CURLER [address] [place] [address] Assigned Heart and Vascular Provider 04/03/22 04/16/22 Diana Desir, [facility] [address] [place] [address] Assigned MTM Pharmacist 04/07/22 Jelena David OD [address] [facility] [place] [address] Assigned Surgical Provider 05/08/22 10/08/22 Galo Burrell MD Assigned Heart and Vascular Provider 04/17/22 06/11/22 Livan Sharif MD [address] [place] [address] Cardiovascular Disease 05/14/22 Livan Sharif MD [address] [place] [address]05 Assigned Heart and Vascular Provider 06/12/22 07/23/22 Catherine Cm MD [address] [place] [address] Cardiovascular Disease 07/21/22 Valery Veronica, PA-C [address] [place] [address] Physician Electronic Scanner Operator Dermatology 07/21/22 Catherine Cm MD [address] [place] [address] Assigned Heart and Vascular Provider 07/24/22 11/05/22 Johnny Murillo MD [facility] [address] [address] Assigned Musculoskeletal Provider 08/14/22 10/08/22 Brea Quinn APRN BRIM CURLER [address] [place] [address] Nurse Practitioner Dermatology 09/21/22 Brea Quinn APRN BRIM CURLER [address] [facility] [place] [address] Assigned Surgical Provider 10/09/22 05/01/24 [place] [address] [facility] [address] [place] [address] Assigned Musculoskeletal Provider 10/09/22 05/01/24 Livan Sharif MD [address] [facility] [address] [place] [address] Assigned Heart and Vascular Provider 11/06/22 11/12/22 Catherine Cm MD [address] [place] 8306400 [place] [address] Assigned Heart and Vascular Provider 11/13/22 05/27/23 Sydnie Martinez RN Personal Advocate & Liaison (PAL) Family Medicine 03/28/23 07/31/23 Alfonso Renteria MD [address] [facility] 200 [place] [address] Assigned Neuroscience Provider 04/02/23 09/29/24 Cheng Todd PA-C [address] [place] [address] Assigned PCP 04/30/23 07/15/23 Radha Lomeli APRN BRIM CURLER [address] [facility] [address] [place] [address] Assigned Heart and Vascular Provider 05/28/23 Jelena David OD [address] [facility] [place] [address] MD Ophthalmology 06/15/23 Poa Joseph, RN Personal Advocate & Liaison (PAL) Nurse 08/01/23 11/07/23 Esha Grimm PA-C [address] [place] [phone] Assigned PCP 07/16/23 Valery Veronica PA-C [address] [place] [address] 341745 Physician Electronic Scanner Operator Dermatology 09/19/23 Rey Tay MD [address] [place] [address] 430275 Gastroenterology 09/20/23 Rocky Zepeda DO [address] [place] [address] 066005 Physician Gastroenterology 09/20/23 Philip Dumont MD [address] [place] [address] 143005 Physician Ophthalmology 09/22/23 Meredith Carrera PA-C [address] [place] [address] 899345 Assigned Gastroenterology Provider 11/01/23 Neil Kent MD [address] [place] [address] 887790 Dermatology 11/02/23 [place] [address] [place] [address] Neurological Surgery 12/26/23 Audrey Waite PA-C 500 [place] [address] Physician Electronic Scanner Operator Dermatology 02/28/24 Valery Veronica PA-C 788827 99 [place] [address] Physician Electronic Scanner Operator Dermatology 04/10/24 Herminia Hatch MD [address] [place] [address] [id number] Assigned Rheumatology Provider 07/02/24 [place] [address] [place] [address] [place] [address] Ophthalmology 08/30/24 [place] [address] [facility] [place] [address] Assigned Neuroscience Provider 09/30/24 Maru Man PA-C [address] [place] [address] Physician Electronic Scanner Operator Dermatology 10/03/24 Maru Man PA-C [address] [place] [address] Physician Electronic Scanner Operator Dermatology 10/22/24 Jelena David OD [address] [facility] [address] [place], [place] 22[address] Assigned Surgical Provider 10/31/24 documented as of this encounter
--- OUTSIDE RECORDS SUMMARY | 2024-11-21 05:09 | XMS_ITS | Encounter Summary ---
Author Organization [facility] Address [address] [place] [address] Care Team Providers Care Prospecting Driller Helper Name Role Phone Diana Desir Stanislav [facility] Unavailable Rain Galaviz PA-C Unavailable Tavia Wyatt MD Unavailable Erica Farrell APRN ROLLER SKATE REPAIRER Unavailable Rich Barrett MD Unavailable [phone] Neil Kent MD Unavailable ThangKendrickDiana Stanislav [facility] Unavailable [phone] Livan Sharif MD Unavailable Catherine Cm MD Unavailable + Valery Veronica-C Unavailable Brea Quinn INTERNATIONAL STUDENT ADVISOR ROLLER SKATE REPAIRER Unavailable Esha Grimm PA-C Primary Care Provider Radha Lomeli APRN ROLLER SKATE REPAIRER Unavailable Jelena David OD Unavailable Esha Grimm PA-C Unavailable [phone] Valery Veronica PA-C Unavailable [phone] Rey Tay MD Unavailable Rocky Zepeda DO [...] (Late st Contact Info) Description 11/07/2024 Telephone [facility] [address] [address] Meredith Carrera PA-C [address] [place] [address] 894165 Appointment Social History Tobacco Use Types Packs/Day [...] How often do you attend chur or muslim services? 1 to 4 times [...] Answer Date Recorded PHQ-2 Score 1 10/24/2024 [facility] [...] PM CDT Legal Sex Female 4:13 AM STRAP MACHINE OPERATOR Gender Identity Female 03/02/2021 5:45 [...] date: ~ RTC 03/04 Specialty phone number: [phone] Additional appointment(s) needed: Labs Additonal Notes: Follow up per provider req - 11/07 AA documented in this encounter Plan of Treatment Upcoming Encounters Date Type Department Care Team (Late st Contact Info) Description 11/21/2024 7:00 AM CDT Office Visit [facility] [address] [phone] Maru Man PA-C [address] [address] 12/20/2024 2:30 PM CDT Office Visit [facility] [address] [place] [address] Esha Grimm PA-C [address] [place] [address] 04/16/2025 11:00 AM CDT Virtual Visit [facility] [address] [phone] Meredith Carrera PA-C [address] [place] [address] 670945 documented as of this encounter Visit Diagnoses Not on filedocumented in this encounter Additional Health Concerns Assessment Noted Time PHQ-9 Depression Total Score: 5 10/25/19 25 10:38 AM CDT documented as of this encounter Care Teams Prospecting Driller Helper Relationship Specialty Start Date End Date Esha Grimm PA-C [address] [place] [address] PCP - General Family Medicine 05/04/23 Diana Desir, [facility] [address] [place] [address] Pharmacist Pharmacist 04/17/21 Rain Galaviz PA-C [address] [place] [address] [address] [place] [address] Physician Patient Relations Coordinator Dermatology 04/28/21 Tavia Wyatt MD [address] [place] [address] [address] [place] [address] Dermatology 07/14/21 Erica Farrell APRN ROLLER SKATE REPAIRER [address] [place] [address]12005 Nurse Practitioner Cardiovascular Disease 09/09/21 Rich Barrett MD [address] [place] 598795 Physician Ophthalmology 01/21/22 Neil Kent MD 500 [place], [place] 427045 Dermatology 02/24/22 Diana Desir, [facility] [address] [place], [place] 619256 Assigned MTM Pharmacist 04/07/22 Livan Sharif MD [address] [place] 20[address] Cardiovascular Disease 05/14/22 Catherine Cm MD [address] [place] 317065 Cardiovascular Disease 07/21/22 Valery Veronica PA-C [address] [place] [address] Physician Patient Relations Coordinator Dermatology 07/21/22 Brea Quinn APRN ROLLER SKATE REPAIRER [address] [place] [address] 505435 Nurse Practitioner Dermatology 09/21/22 Radha Lomeli, INTERNATIONAL STUDENT ADVISOR ROLLER SKATE REPAIRER [address] [facility] [address] [place], [place] 359[address] Assigned Heart and Vascular Provider 05/28/23 Jelena David OD [address] [facility] [place] [address] MD Ophthalmology 06/15/23 Esha Grimm PA-C [address] [place] [phone] Assigned PCP 07/16/23 Valery Veronica PA-C [address] [place] [address] Physician Patient Relations Coordinator Dermatology 09/19/23 Rey Tay MD [address] [place] [address] Gastroenterology 09/20/23 Rocky Zepeda DO [address] [place] [address] 232305 Physician Gastroenterology 09/20/23 Philip Dumont MD [address] [place] [address] Physician Ophthalmology 09/22/23 Meredith Carrera PA-C [address] [place] [address] Assigned Gastroenterology Provider 11/01/23 Neil Kent MD [address] [address] Dermatology 11/02/23 [place] [address] [place] [address] Neurological Surgery 12/26/23 Audrey Waite PA-C [address] [place] [address] Physician Patient Relations Coordinator Dermatology 02/28/24 Valery Veronica PA-C [address]551 [address] [place] [address] Physician Patient Relations Coordinator Dermatology 04/10/24 Herminia Hatch MD [address] [place] [address] [phone] Assigned Rheumatology Provider 07/02/24 [place] [address] [place] [address] [place] [address] Ophthalmology 08/30/24 [place] [address] [place] [address] Assigned Neuroscience Provider 09/30/24 Maru Man PA-C [address] [place] [address] Physician Patient Relations Coordinator Dermatology 10/03/24 Maru Man PA-C [address] [place] [address] Physician Patient Relations Coordinator Dermatology 10/22/24 Jelena David OD [address] [place] [address] [place] [address] Assigned Surgical Provider 10/31/24 documented as of this encounter
--- OUTSIDE RECORDS SUMMARY | 2024-11-21 05:09 | XMS_ITS | Encounter Summary ---
Author Organization [facility] Address [address] [place] [address] Care Team Providers Care Healthcare Account Manager Name Role Phone Diana Desir Stanislav [facility] Unavailable Rain Galaviz PA-C Unavailable Tavia Wyatt MD Unavailable Erica Farrell APRN WESTERN PHILOSOPHY PROFESSOR Unavailable Rich Barrett MD Unavailable [phone] Neil Kent MD Unavailable ThangKendrickDiana Stanislav [facility] Unavailable [phone] Livan Sharif MD Unavailable Catherine Cm MD Unavailable + Valery Veronica-C Unavailable Brea Quinn CHINCHILLA FARMER WESTERN PHILOSOPHY PROFESSOR Unavailable Esha Grimm PA-C Primary Care Provider Radha Lomeli APRN WESTERN PHILOSOPHY PROFESSOR Unavailable Jelena David OD Unavailable Esha Grimm PA-C Unavailable Valery Veronica PA-C Unavailable Rey Tay MD Unavailable Rocky Zepeda DO Unavailable Philip Dumont MD Unavailable DebiMeredith PA-C Unavailable [phone] Neil Kent MD Unavailable Juan Pablo Emmanuel MD Unavailable [phone] Audrey Waite PA-C Unavailable [phone] Valery Veronica PA-C Unavailable Herminia Hatch MD Unavailable Jelena David OD Unavailable Juan Pablo Emmanuel MD Unavailable [phone] Maru Man PA-C Unavailable Maru Man PA-C Unavailable Jelena David OD Unavailable Reason for Referral * Diagnostic Imaging XR (Routine) - Pending Review Specialty Diagnoses / Procedures Referred By Qian mayers Referred To Contact Radiology. Diagnoses Acute cough Procedures XR Chest 2 Views Estephania Flannery NP [address] [place] [address] Phone: tel: fax: Referral ID Status Reason Start Date Expiration Date V isits Requested Visits Authorized [id number] Pending Review 11/20/2024 11/20/2025 1 1 Reason [...] Description 11/20/2024 11:15 AM CDT Office Visit [facility] [place] [address] [place] [address] Estephania Flannery NP [address] [place] [address] Yeast infection of the vagina (Primary Dx); [...] Answer Date Recorded PHQ-2 Score 1 10/24/2024 [facility] - Occupational Stress [...] exercise at this level? 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 Please also have daily probiotic and malay yogurtto help your symptoms. A yeast infection [...] pharmacy. Please also have daily probiotic and malay yogurtto help your symptoms. A yeast infection [...] Narrative EXAM: XR CHEST 2 VIEWS LOCATION: [facility] DATE: 11/20/2024 INDICATION: Acute cough [...] Negative Ketones Urine Negative Negative mg/dL Specific [place] Urine 1.015 1.003 - 1.035 Blood Urine [...] Procedure Abnormality Status --------- ------ WBC and Differential[[id number]] Final result Please view results for these [...] Office Visit [facility] [address] [phone] Maru Man PA-C [address] [address] 12/20/2024 2:30 PM CDT Office Visit [facility] [address] [place] [address] Esha Grimm PA-C [id number] [place] [address] 04/16/2025 11:00 AM CDT Virtual Visit [facility] [address] [place] [address] Meredith Carrera PA-C [address] [place] [address] [phone] Pending Results Name Type Priority Associated Diagnoses [...] CDT 11/20/2024 3:15 PM CDT Estephania Flannery AUTOMOTIVE GENERATOR REPAIRER LAB - BLOOD ORDERABLES Shira l Result UU LABORATORY [facility] [place] [facility] Lab [address] [facility], Room [address] [place] [phone] * (ABNORMAL) UA Microscopic with Reflex to [...] - URINE ORDERABLES Shira l Result LABORATORY [facility] [place] Lab [address] [facility] Lab (no room number, 1st floor of clinic) [place] [address], [facility] * UA with Microscopic reflex to Culture [...] mg/dL 11/20/2024 11:47 AM CDT LABORATORY Specific [place] Urine 1.015 1.003 - 1.035 11/20/2024 11:47 [...] - URINE ORDERABLES Shira snyder Result LABORATORY [facility] [place] Lab [address] [facility] Lab (no room number, 1st floor of clinic) [place] [address], [facility] * (ABNORMAL) Wet prep - Clinic Collect [...] GENERAL ORDERAB LES Final Result LV LABORATORY [facility] [place] [facility] [address] [facility] Lab (no room number, 1st floor of clinic) [place] [address], [facility] * WBC and Differential (11/20/2024 11:41 AM CDT) [facility] Signature WBC Count 5.2 4.0 - [...] 11/20/2024 11:41 AM CDT us Estephania Flannery AUTOMOTIVE GENERATOR REPAIRER LAB - BLOOD ORDERABLES Shira l Result LV LABORATORY [facility] Lab [address] [facility] Lab (no room number, 1st floor of clinic) [place] [address] * Treponema Abs w Reflex to RPR and Titer (11/20/2024 11:40 AM CDT) Treponema Antibody Total Nonreactive Nonreactive 11/20/2024 9:56 PM CDT SPECIALTY LABS Blood BLOOD SPECIMEN / Unknown Venipuncture / Unknown 11/20/2024 11:40 AM CDT 11/20/2024 11:40 AM CDT Estephania Flannery NP LAB - BLOOD ORDERABLES Shira l Result Performing Organization Address City/[facility]/ZIP Co de Phone Number UM SPECIALTY CORE/PROT/ENDO UM Specialty Core/Prot/Endo [address] [facility], Room [address] SPECIALTY LABS Specialty Lab [address] [facility], Room [address] [phone] [place] [address] * XR Chest 2 Views (11/20/2024 11:20 AM CDT) Anatomical Region Laterality Modality Chest Computed Radiogr aphy 11/20/2024 11:2 0 AM CDT Impressions 11/20/2024 11:22 AM CDT IMPRESSION: Negative chest. Narrative 11/20/2024 11:22 AM CDT EXAM: XR CHEST 2 VIEWS LOCATION: [facility] DATE: 11/20/2024 INDICATION: Acute cough COMPARISON: 10/28/2024 Procedure Note Robert Ramos MD - 11/20/2024 EXAM: XR CHEST 2 VIEWS LOCATION: [facility] DATE: 11/20/2024 INDICATION: Acute cough COMPARISON: 10/28/2024 IMPRESSION: Negative chest. us Estephania Flannery AUTOMOTIVE GENERATOR REPAIRER IMG DIAGNOSTIC IMAGING ORDE RABLES Final Result [...] MICRO GENERAL ORD ERABLES Final Result LABORATORY [facility] [address] [facility] (no room number, 1st floor of clinic) [place] [address], [facility] documented in this encounter Visit Diagnoses Diagnosis [...] as of this encounter Care Teams Healthcare Account Manager Relationship Specialty Start Date End Date Esha Grimm PA-C [address] [place] [phone] PCP - General Family Medicine 05/04/23 Diana Desir [facility] [address] [place] [address] Pharmacist Pharmacist 04/17/21 Rain Galaviz PA-C [address] [place] [address] [address] [place] [address] Physician Certified Professional Ergonomist Dermatology 04/28/21 Tavia Wyatt MD [address] [place] [address] [address] [place] [address] Dermatology 07/14/21 Erica Farrell APRN WESTERN PHILOSOPHY PROFESSOR [address] [place], [place] [address] Nurse Practitioner Cardiovascular Disease 09/09/21 Rich Barrett MD [address] [place], [place] [address] Physician Ophthalmology 01/21/22 Neil Kent MD [address] [place] [address] 638005 Dermatology 02/24/22 [facility] [address] [place] [address] Assigned [facility] Pharmacist 04/07/22 Livan Sharif MD [address] [place], [place] [address] Cardiovascular Disease 05/14/22 Catherine Cm MD [address] [place], [place] 846[address] Cardiovascular Disease 07/21/22 Valery Veronica, PA-C [address] [place] [address] Physician Certified Professional Ergonomist Dermatology 07/21/22 Brea Quinn APRN WESTERN PHILOSOPHY PROFESSOR [address] [place] [address] Nurse Practitioner Dermatology 09/21/22 Radha Lomeli APRN WESTERN PHILOSOPHY PROFESSOR [address] [place], [place] [address] [place] [address] Assigned Heart and Vascular Provider 05/28/23 [place] [address] [place] [address] [place] [address] MD Ophthalmology 06/15/23 Esha Grimm PA-C [address] [place] [address] Assigned PCP 07/16/23 Valery Veronica PA-C [address] [place] [address] Physician Certified Professional Ergonomist Dermatology 09/19/23 Rey Tay MD [address] [place] [address] Gastroenterology 09/20/23 Rocky Zepeda DO [address] [place] [address] 731835 Physician Gastroenterology 09/20/23 Philip Dumont MD [address] [place] [address] 254475 Physician Ophthalmology 09/22/23 Meredith Carrera PA-C [address] [place] [address] Assigned Gastroenterology Provider 11/01/23 Neil Kent MD [address] [place] [address] Dermatology 11/02/23 [place] [address] [place], [place] 8[address] Neurological Surgery 12/26/23 Audrey Waite PA-C [address] [place] [address] Physician Certified Professional Ergonomist Dermatology 02/28/24 Valery Veronica PA-C 43[address]53 [address], [place] [address]99 Physician Certified Professional Ergonomist Dermatology 04/10/24 Herminia Hatch MD [facility] [place], [place] 33735125 Assigned Rheumatology Provider 07/02/24 Jelena David OD [address] [facility] [place] [address] Ophthalmology 08/30/24 [place] [address] [place] [address] Assigned Neuroscience Provider 09/30/24 Maru Man PA-C [address] [place] [address] Physician Certified Professional Ergonomist Dermatology 10/03/24 Maru Man PA-C [address] [place] [address] Physician Certified Professional Ergonomist Dermatology 10/22/24 Jelena David OD [address] [place] [address] [place] [address] Assigned Surgical Provider 10/31/24 documented as of this encounter
--- OUTSIDE RECORDS SUMMARY | 2024-11-21 05:09 | XMS_ITS | Encounter Summary ---
Author Organization [facility] Address [address] [place] [address] Care Team Providers Care Rock Wool Applicator Name Role Phone Diana Desir Stanislav [facility] Unavailable Rain Galaviz PA-C Unavailable Tavia Wyatt MD Unavailable Erica Farrell APRN GRAPHIC ENGINEER Unavailable Rich Barrett MD Unavailable [phone] Neil Kent MD Unavailable ThangKendrickDiana Stanislav [facility] Unavailable [phone] Livan Sharif MD Unavailable Catherine Cm MD Unavailable + Valery Veronica-C Unavailable Brea Quinn WEB FEEDER GRAPHIC ENGINEER Unavailable [phone] Esha Grimm PA-C Primary Care Provider Radha Lomeli APRN GRAPHIC ENGINEER Unavailable Jelena David OD Unavailable Esha Grimm PA-C Unavailable [phone] Valery Veronica PA-C Unavailable Rey Tay MD Unavailable DuaneRocky Unavailable Philip Dumont MD Unavailable [phone] PinoMeredith paez PA-C Unavailable [phone] Neil Kent MD Unavailable Juan Pablo Emmanuel MD Unavailable Audrey Waite PA-C Unavailable [phone] Valery Veronica PA-C Unavailable Herminia Hatch MD Unavailable Jelena David OD Unavailable Juan Pablo Emmanuel MD Unavailable [phone] Maru Man-C Unavailable [phone] Mrau Man-C Unavailable [phone] Jelena David OD Unavailable Reason for Visit * Reason Onset Date Comments General 11/21/2024 Encounter Details Date Type Department Care Team (Late st Contact Info) Description 11/21/2024 Telephone [facility] Nurse Advisors [facility] [place] [address] Celine Vogel RN General Social [...] Answer Date Recorded PHQ-2 Score 1 10/24/2024 [facility] - Occupational Stress Questionnaire Answer [...] exercise at this level? 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 Patient states that she had already spoken with someone at the [facility] and She states that she had asked them to transfer her to someone so she could speak with someone as she was traveling with her 4 year old daughter. Patient reported to blurb writer that she arrived safely to the hospital at 0405. documented in this encounter Plan of Treatment Upcoming Encounters Date Type Department Care Team (Late st Contact Info) Description 11/21/2024 7:00 AM CDT Office Visit [facility] [place] [address] [phone] Maru Man PA-C [address] [address] 12/20/2024 2:30 PM CDT Office Visit [facility] [address] [place] [address] Esha Grimm PA-C [address] [place] [address] 04/16/2025 11:00 AM CDT Virtual Visit [facility] [address] [phone] Meredith Carrera PA-C [address] [place] [address] 854835 documented as of this encounter Visit Diagnoses Not on filedocumented in this encounter Additional Health Concerns Infection Onset Date Last Indicated Resolved Time Rule Out COVID-19 11/20/2024 11/20/2024 Assessment Noted Time PHQ-9 Depression Total Score: 5 10/25/19 25 10:38 AM CDT documented as of this encounter Care Teams Rock Wool Applicator Relationship Specialty Start Date End Date Esha Grimm PA-C [address] [place] [address] PCP - General Family Medicine 05/04/23 Diana Desir, [facility] [address] [place] [address] Pharmacist Pharmacist 04/17/21 Rain Galaviz PA-C [address] [place] [address] [address] [place], [place] [address] Physician Mask Layout Designer Dermatology 04/28/21 Tavia Wyatt MD [address] [place] [address] [address] [place] [address] Dermatology 07/14/21 Erica Farrell APRN GRAPHIC ENGINEER [address] [place] [address] Nurse Practitioner Cardiovascular Disease 09/09/21 Rich Barrett MD [address] [place] [address] Physician Ophthalmology 01/21/22 Neil Kent MD 500 [place], [place] 18[address]45 Dermatology 02/24/22 Diana Desir, [facility] [address] [place], [place] 774196 Assigned MTM Pharmacist 04/07/22 Livan Sharif MD [address] [place] [address] Cardiovascular Disease 05/14/22 Catherine Cm MD [address] [place] [address] Cardiovascular Disease 07/21/22 Valery Veronica PA-C [address] [place] [address] Physician Mask Layout Designer Dermatology 07/21/22 Brea Quinn APRN GRAPHIC ENGINEER [address] [place] [address] Nurse Practitioner Dermatology 09/21/22 Radha Lomeli APRN GRAPHIC ENGINEER [address] [facility] [address] [place] [address] Assigned Heart and Vascular Provider 05/28/23 [place] [address] [facility] [place] [address] MD Ophthalmology 06/15/23 Esha Grimm PA-C [address] [place] [address] Assigned PCP 07/16/23 Valery Veronica PA-C [address] [place] [address] Physician Mask Layout Designer Dermatology 09/19/23 Rey Tay MD [address] [place] [address] Gastroenterology 09/20/23 Rocky Zepeda DO [address] [place] [address] 024605 Physician Gastroenterology 09/20/23 Philip Dumont MD [address] [place] [address] 258595 Physician Ophthalmology 09/22/23 Meredith Carrera PA-C [address] [place], [place] 9608[address] Assigned Gastroenterology Provider 11/01/23 Neil Kent MD [address] [address] Dermatology 11/02/23 [place] [address] [facility] [address] [place] [address] [phone] Neurological Surgery 12/26/23 Audrey Waite PA-C [address] [place] [address] Physician Mask Layout Designer Dermatology 02/28/24 Valery Veronica PA-C 169422 [place], [place] 541099 Physician Mask Layout Designer Dermatology 04/10/24 Herminia Hatch MD [address] [place] [address] [phone] Assigned Rheumatology Provider 07/02/24 Jelena David OD [address] [place] [address] [place] [address] Ophthalmology 08/30/24 [place] [address] [facility] [address] [place] [address] Assigned Neuroscience Provider 09/30/24 Maru Man PA-C [address] [place] [address] Physician Mask Layout Designer Dermatology 10/03/24 Maru Man PA-C [address] [place] [address] Physician Mask Layout Designer Dermatology 10/22/24 Jelena David OD [address] [place] [address] [place] [address] Assigned Surgical Provider 10/31/24 documented as of this encounter
--- OUTSIDE RECORDS SUMMARY | 2024-11-21 05:09 | XMS_ITS | Encounter Summary ---
Author Organization [place] Address [address] [place] [address] Care Team Providers Care Mill Supervisor Name Role Phone Lita Oseguera Unavailable Unavailable Marija Edgar APRN AGENCY OWNER Primary Care Provider + Marija Edgar APRN AGENCY OWNER Unavailable [phone] Keisha Dotson MD Unavailable Diana Desir [facility] Unavailable [phone] aRin Galaviz PA-C Unavailable Tavia Wyatt MD Unavailable Erica Farrell APRN AGENCY OWNER Unavailable Tavia Wyatt MD Unavailable [phone] Rich Barrett MD Unavailable [phone] Neil Kent MD Unavailable Roney Story DPM Unavailable Diana Desir [facility] Unavailable Jelena David OD Unavailable Galo Burrell MD Unavailable Unavailable Livan Sharif MD Unavailable Livan Sharif MD Unavailable IsCatherine hobbs MD Unavailable + Valery Veronica PA-C Unavailable Catherine Cm MD Unavailable + Johnny Murillo MD Unavailable Brea Quinn MANAGER BIOLOGICS AGENCY OWNER Unavailable [phone] Brea Quinn MANAGER BIOLOGICS AGENCY OWNER Unavailable [phone] Jose Francisco Johnson MD Unavailable Livan Sharif MD Unavailable Catherine Cm MD Unavailable + Sydnie Martinez RN Unavailable Unavailable Alfonso Renteria MD Unavailable [phone] Esha Grimm PA-C Primary Care Provider Cheng Todd PA-C Unavailable Radha Lmoeli MANAGER BIOLOGICS AGENCY OWNER Unavailable Jelena David OD Unavailable Pao Joseph RN Unavailable Unavailable Esha Grimm PA-C Unavailable [phone] Valery Veronica PA-C Unavailable Rey Tay MD Unavailable Rocky Zepeda DO Unavailable Philip Dumont MD Unavailable Meredith Carrera PA-C Unavailable Neil Kent MD Unavailable Juan Pablo Emmanuel MD Unavailable Audrey Waite PA-C Unavailable Valery Veronica PA-C Unavailable Herminia Hatch MD Unavailable Jelena David OD Unavailable [phone] Juan Pablo Emmanuel MD Unavailable Maru Man PA-C Unavailable [phone] Maru Man PA-C Unavailable + Jelena David OD Unavailable [phone] Encounter Details Date Type Department Care Team (Late st Contact Info) Description 04/20/2022 MyC Medical Advice [facility] [place] [id number] [facility] [address] [place] [address] Margaret Rendon RN Social History [...] often do you attend christian or adventist serv ices? Never 09/22/2021 Do [...] Answer Date Recorded PHQ-2 Score 2 12/18/2021 [facility] - Occupational Stress [...] in a alf (including now)? 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 Gender Identity Female 03/02/2021 5:45 PM [...] Description 11/21/2024 7:00 AM CDT Office Visit [address] [phone] Maru Man PA-C [address] [place] [address] 12/20/2024 2:30 PM CDT Office Visit [address] [address] Esha Grimm PA-C [address] [place] [phone] 04/16/2025 11:00 AM CDT Virtual Visit [facility] [address] 4th [place] [address] Meredith Carrera PA-C [address] [place] [address] documented as of this encounter Visit Diagnoses Not on filedocumented in this encounter Additional Health Concerns Infection Onset Date Last Indicated Resolved Time Rule Out COVID-19 04/26/2022 04/26/2022 04/26/2022 6:47 AM CDT Rule Out COVID-19 05/17/2022 05/17/2022 05/17/2022 10:20 PM STAFF PHYSICAL THERAPIST Rule Out COVID-19 06/09/2022 06/09/2022 06/09/2022 9:35 AM STAFF PHYSICAL THERAPIST COVID-19 06/09/2022 06/09/2022 06/30/2022 11:4 1 PM STAFF PHYSICAL THERAPIST Rule Out COVID-19 11/10/2022 11/10/2022 11/11/2022 [...] documented as of this encounter Care Teams Mill Supervisor Relationship Specialty Start Date End Date Marija Edgar APRN CNP PCP - General Nurse Practitioner 04/30/20 04/14/23 Esha Grimm PA-C [address] [place] [phone] PCP - General Family Medicine 05/04/23 Lita Oseguera Personal Advocate & Liaison (PAL) 02/28/20 03/27/23 Marija Edgar APRN AGENCY OWNER Assigned PCP 06/08/20 04/29/23 Keisha Dotson MD [address] [place], [place] 065635 Assigned Neuroscience Provider 06/04/20 04/01/23 Diana Desir [facility] [address] [place], [place] [phone] Pharmacist Pharmacist 04/17/21 Rain Galaviz PA-C [address] [place] [address] [address] [place] [address] Physician Wood Finisher Apprentice Dermatology 04/28/21 Tavia Wyatt MD [address] [place] [address] [address] [place] [address] Dermatology 07/14/21 Erica Farrell APRN AGENCY OWNER [address] [facility] [address] [place] 977105 Nurse Practitioner Cardiovascular Disease 09/09/21 Tavia Wyatt MD [address] [place] [address] Assigned Surgical Provider 11/29/21 05/07/22 Rich Barrett MD [address] [place] [address] Physician Ophthalmology 01/21/22 Neil Kent MD 500 [place] [address] Dermatology 02/24/22 Roney Story DPM [address] [facility] [address] [place], [place] 641477 Assigned Musculoskeletal Provider 03/20/22 08/13/22 Diana Desir, [facility] [address] [place], [place] 777146 Assigned MTM Pharmacist 04/07/22 Jelena David OD [address] [facility] [place] [address] Assigned Surgical Provider 05/08/22 10/08/22 Galo Burrell MD Assigned Heart and Vascular Provider 04/17/22 06/11/22 Livan Sharif MD [address] [place] 545495 Cardiovascular Disease 05/14/22 Livan Sharif MD [address] [address] [place] 391085 Assigned Heart and Vascular Provider 06/12/22 07/23/22 Catherine Cm MD [address] [place] 903685 Cardiovascular Disease 07/21/22 Valery Veronica, PAUcheC [address]09 [place] [address] Physician Wood Finisher Apprentice Dermatology 07/21/22 Catherine Cm MD [address] [address] Assigned Heart and Vascular Provider 07/24/22 11/05/22 Johnny Murillo MD [address] [place] [address] Assigned Musculoskeletal Provider 08/14/22 10/08/22 Brea Quinn APRN AGENCY OWNER [address] [place] [address] Nurse Practitioner Dermatology 09/21/22 Brea Quinn APRN AGENCY OWNER [address] [place] [address] Assigned Surgical Provider 10/09/22 05/01/24 [place] [address] [address] Assigned Musculoskeletal Provider 10/09/22 05/01/24 Livan Sharif MD [address] [place] [address] [place] [address] Assigned Heart and Vascular Provider 11/06/22 11/12/22 Catherine Cm MD [address] [place] [address] Assigned Heart and Vascular Provider 11/13/22 05/27/23 Sydnie Martinez RN Personal Advocate & Liaison (PAL) Family Medicine 03/28/23 07/31/23 Alfonso Renteria MD [address] [facility] 200 [place] [address] Assigned Neuroscience Provider 04/02/23 09/29/24 Cheng Todd PA-C [address] [place] [address] [id number] Assigned PCP 04/30/23 07/15/23 Radha Lomeli APRN AGENCY OWNER [address] [place] [address] Assigned Heart and Vascular Provider 05/28/23 Jelena David OD [address] [facility] [place] [address] Ophthalmology 06/15/23 Pao Joseph RN Personal Advocate & Liaison (PAL) Nurse 08/01/23 11/07/23 Esha Grimm PA-C [address] [place] [phone] Assigned PCP 07/16/23 Valery Veronica PA-C 9 [place] [address] Physician Wood Finisher Apprentice Dermatology 09/19/23 Rey Tay MD [address] [place] [address] MD Gastroenterology 09/20/23 Rocky Zepeda DO [address] [place] [address] Physician Gastroenterology 09/20/23 Philip Dumont MD [address] [place] [address] Physician Ophthalmology 09/22/23 Meredith Carrera PA-C [address] [place] [address] Assigned Gastroenterology Provider 11/01/23 Neil Kent MD [address] [place] [address] MD Dermatology 11/02/23 [place] [address] [address] Neurological Surgery 12/26/23 Audrey Waite PA-C [address] [place] [place] [address] Physician Wood Finisher Apprentice Dermatology 02/28/24 Valery Veronica PA-C 985891 [place] [address] Physician Wood Finisher Apprentice Dermatology 04/10/24 Herminia Hatch MD [address] [place] [address] [phone] Assigned Rheumatology Provider 07/02/24 Jelena David OD [address] [facility] [place] [address] Ophthalmology 08/30/24 [place] [address] [address] [place] [address] Assigned Neuroscience Provider 09/30/24 Maru Man PA-C [address] [place] [address] Physician Wood Finisher Apprentice Dermatology 10/03/24 Maru Man PA-C [address] [place] [address] Physician Wood Finisher Apprentice Dermatology 10/22/24 Jelena David OD [address] [facility] [place] [address] Assigned Surgical Provider 10/31/24 documented as of this encounter
--- OUTSIDE RECORDS SUMMARY | 2024-11-21 05:10 | XMS_ITS | Encounter Summary ---
Author Organization [place] Address [address] [place] [address] Care Team Providers Care Green Building Energy Engineer Name Role Phone Lita Oseguera Unavailable Unavailable Marija Edgar APRN GAMBLING CASHIER Primary Care Provider + Chanelle Mccann APRN CNM Unavailab le Kyara De La Fuente RN Unavailable [phone] Marija Edgar APRN GAMBLING CASHIER Unavailable [phone] Mynor Broussard MD Unavailable [phone] Keisha Dotson MD Unavailable [phone] Stacey Briones VP SOFTWARE ENGINEERING Unavailable Lesley Guillermo CHW Unavailable Mary Mejia Unavailable Unavailable Lita Oseguera Unavailable Unavailable Galo Burrell MD Unavailable Unavailable Cristina Wood Unavailable Lesley Guillermo CHW Unavailable Meredith Bedoya Unavailable Unavailable Cristina Wood Unavailable Diana Desir [facility] Unavailable Rain Galaviz PA-C Unavailable [phone] Summer Lara MD Unavailable [phone] Summer Lara MD Unavailable [phone] Summer Lara MD Unavailable [phone] Tavia Wyatt MD Unavailable [phone] Johnny Murillo MD Unavailable [phone] Erica Farrell BARREL LOADER GAMBLING CASHIER Unavailable Vikas Teresitakaren Watson [facility] Unavailable Tavia Wyatt MD Unavailable [phone] Diana Desir [facility] Unavailable [phone] Rich Barrett MD Unavailable Neil Kent MD Unavailable Roney StoryM Unavailable Erica Farrell BARREL LOADER GAMBLING CASHIER Unavailable Diana Desir [facility] Unavailable [phone] Jelena David OD Unavailable Galo Burrell MD Unavailable Unavailable Livan Sharif MD Unavailable Livan Sharif MD Unavailable Catherine Cm MD Unavailable + Valery Veronica PA-C Unavailable [phone] Catherine Cm MD Unavailable + Johnny Murillo MD Unavailable +[phone] Brea Quinn APRN GAMBLING CASHIER Unavailable [phone] Brea Quinn APRN GAMBLING CASHIER Unavailable [phone] Jose Francisco Johnson MD Unavailable Livan Sharif MD Unavailable + Catherine Cm MD Unavailable + Sydnie [place] RN Unavailable Unavailable Alfonso Renteria MD Unavailable [phone] Esha Grimm PA-C Primary Care Provider Perez Chengjc Fish PA-C Unavailable Armani Radha Stovall ARLENE GRANADOS Unavailable Jelena David OD Unavailable Pao Joseph RN Unavailable Unavailable Esha Grimm PA-C Unavailable [phone] Valery Veronica PA-C Unavailable Rey Tay MD Unavailable Rocky Zepeda DO Unavailable Philip Dumont MD Unavailable Meredith Carrera PA-C Unavailable [phone] Neil Kent MD Unavailable Juan Pablo Emmanuel MD Unavailable Audrey Waite PA-C Unavailable Valery Veronica PA-C Unavailable Herminia Hatch MD Unavailable Jelena David OD Unavailable Juan Pablo Emmanuel MD Unavailable Maru Man PA-C Unavailable Maru Man PA-C Unavailable [phone] Jelena David OD Unavailable Reason for Visit * Reason Onset Date Comments Patient/info Update 08/31/2020 appointment request Encounter Details Date Type Department Care Team (Late st Contact Info) Description 08/31/2020 MyC Medical Advice [address] [address] Marija Edgar APRN [facility] [address] [facility] [place] [address] Patient/info Update (appointment request ) Social [...] Answer Date Recorded PHQ-2 Score 0 08/12/2020 [facility] - Occupational Stress Questionnaire Answer Date [...] PM CDT Legal Sex Female 4:13 AM HAMMERSMITH HELPER Gender Identity Female 03/02/2021 5:45 PM CDT Sexual Orientation Straight 02/28/2020 12 :51 AM CDT COVID-19 Exposure Response Date Recorded In the last month, have you been in contact with someone who was confirmed or suspected to have Coronavirus / COVID-19? No / Unsure 09/03/2020 12:11 PM HAMMERSMITH HELPER documented as of this encounter Miscellaneous Notes * Telephone Encounter - Maryjane Mccallum RN - 09/01/2020 7:21 AM HAMMERSMITH HELPER Patient sent message requesting office visit with [...] Office Visit with Marija Edgar APRN CNP [facility] ([facility] ) [address] [facility] [phone] Maryjane Mccallum Registered Nurse [facility] ERSMITH HELPER documented in this encounter Plan of Treatment Upcoming Encounters Date Type Department Care Team (Late st Contact Info) Description 11/21/2024 7:00 AM CDT Office Visit [facility] [address] [phone] Maru Man PA-C [address] [address] 12/20/2024 2:30 PM CDT Office Visit [facility] [address] [place] [address] Esha Grimm PA-C [address] [place] [address] 04/16/2025 11:00 AM CDT Virtual Visit [facility] [address] [place] [phone] Meredith Carrera PA-C [address] [place] [address] 026175 documented as of this encounter Visit Diagnoses Not on filedocumented in this encounter Additional Health Concerns Infection Onset Date Last Indicated Resolved Time Rule Out COVID-19 09/24/2020 09/24/2020 09/24/2020 9:24 AM CDT Rule Out COVID-19 11/05/2020 11/05/2020 11/06/2020 1:09 PM CDT Rule Out COVID-19 05/11/2021 05/11/2021 05/13/2021 10:18 AM CDT Rule Out COVID-19 07/13/2021 07/13/2021 07/14/2021 3:04 PM HAMMERSMITH HELPER Rule Out COVID-19 07/18/2021 07/18/2021 07/20/2021 1:56 PM HAMMERSMITH HELPER COVID-19 07/18/2021 07/18/2021 08/08/2021 11:3 9 PM HAMMERSMITH HELPER Rule Out COVID-19 12/18/2021 12/18/2021 12/19/2021 11:34 AM CDT Rule Out COVID-19 02/24/2022 02/24/2022 02/25/2022 1:08 PM CDT Rule Out COVID-19 04/26/2022 04/26/2022 04/26/2022 6:47 AM CDT Rule Out COVID-19 05/17/2022 05/17/2022 05/17/2022 10:20 PM HAMMERSMITH HELPER Rule Out COVID-19 06/09/2022 06/09/2022 06/09/2022 9:35 AM HAMMERSMITH HELPER COVID-19 06/09/2022 06/09/2022 06/30/2022 11:4 1 PM HAMMERSMITH HELPER Rule Out COVID-19 11/10/2022 11/10/2022 11/11/2022 12:17 PM CDT Rule Out COVID-19 03/07/2023 03/07/2023 03/07/2023 1:20 PM CDT Rule Out COVID-19 12/26/2023 12/26/2023 12/26/2023 9:50 AM CDT Rule Out COVID-19 04/09/2024 04/09/2024 04/10/2024 6:48 PM CDT Rule Out COVID-19 10/04/2024 10/04/2024 10/05/2024 9:42 AM CDT Rule Out COVID-19 11/20/2024 11/20/2024 Assessment Noted Time PHQ-9 Depression Total Score: 9 06/25/20 20 7:04 AM HAMMERSMITH HELPER documented as of this encounter Care Teams Green Building Energy Engineer Relationship Specialty Start Date End Date Marija Edgar APRN GAMBLING CASHIER PCP - General Nurse Practitioner 04/30/20 04/14/23 Esha Grimm PA-C [address] [place] [phone] PCP - General Family Medicine 05/04/23 Lita Oseguera Personal Advocate & Liaison (PAL) 02/28/20 03/27/23 Chanelle Mccann APRN CNM [address] [place] [address] Assigned OBGYN Provider 05/02/2005/09 Kyara De La Fuente, VJ Specialty Vp Product Marketing Neurology 06/04/20 03/05/21 Marija Edgar APRN GAMBLING CASHIER Assigned PCP 06/08/20 04/29/23 Mynor Broussard MD [address] 688745 Assigned Surgical Provider 06/01/20 11/28/21 Keisha Dotson MD 909 [place] [address] Assigned Neuroscience Provider 06/04/20 04/01/23 Stacey Briones, [facility] Lead Vp Product Marketing Primary Care - CC 08/11/2012/30 Lesley Guillermo, [facility] Community Health Worker 08/11/2010/01 Mary [...] 02/09/21 Diana Desir, [facility] [address] [place] [address] Pharmacist Pharmacist 04/17/21 Rain Galaviz PA-C [address] [place] [address] [place] [address] Physician Professor Of Voice Dermatology 04/28/21 Summer Lara MD [address] [place] [address] Assigned OBGYN Provider 05/10/2105/23 Summer Lara MD [address] [place] [address] Assigned OBGYN Provider 05/31/21 Summer Lara MD [address] [place] [address] Assigned OBGYN Provider 05/24/2105/30 Tavia Wyatt MD [address] [place] [address] Dermatology 07/14/21 Johnny Murillo MD [facility] [address] [place] [address] Assigned Musculoskeletal Provider 08/30/21 03/17/22 Erica Farrell APRN GAMBLING CASHIER [address] [facility] [address] [place] [address] Nurse Practitioner Cardiovascular Disease 09/09/21 Teresita Bean, [facility] [address] [place] [phone] Pharmacist Pharmacist 09/24/21 09/29/21 Tavia Wyatt MD [address] [place] [address] Assigned Surgical Provider 11/29/21 05/07/22 Diana Desir [facility] [address] [place] [address] Assigned MTM Pharmacist 01/02/22 Rich Barrett MD [address] [place] [address] Physician Ophthalmology 01/21/22 Neil Kent MD [address] [place] [address] Dermatology 02/24/22 Roney Story DPM [address] [facility] [address] [place] [address] Assigned Musculoskeletal Provider 03/20/22 08/13/22 Erica Farrell APRN GAMBLING CASHIER 1700 [place] [address] Assigned Heart and Vascular Provider 04/03/22 04/16/22 Diana Desir [facility] [address] [place] [address] Assigned MTM Pharmacist 04/07/22 Jelena David OD [address] [facility] [place] [address] Assigned Surgical Provider 05/08/22 10/08/22 Galo Burrell MD Assigned Heart and Vascular Provider 04/17/22 06/11/22 Livan Sharif MD [address] [place] [address] Cardiovascular Disease 05/14/22 Livan Sharif MD [address] [place] [address] Assigned Heart and Vascular Provider 06/12/22 07/23/22 Catherine Cm MD [address] [place] [address] Cardiovascular Disease 07/21/22 Valery Veronica, PAUcheC [address] [place] [address] 754205 Physician Professor Of Voice Dermatology 07/21/22 Catherine Cm MD [address] [place], [place] 127765 Assigned Heart and Vascular Provider 07/24/22 11/05/22 Johnny Murillo MD [facility] [address] 627844 Assigned Musculoskeletal Provider 08/14/22 10/08/22 Brea Quinn APRN GAMBLING CASHIER [address] [place] [address] 965465 Nurse Practitioner Dermatology 09/21/22 Brea Quinn APRN GAMBLING CASHIER 64[address] [facility] [place] [address] Assigned Surgical Provider 10/09/22 05/01/24 [place] [address] [address] Assigned Musculoskeletal Provider 10/09/22 05/01/24 Livan Sharif MD [address] [facility]00 [place] [address] Assigned Heart and Vascular Provider 11/06/22 11/12/22 Catherine Cm MD [address] [facility]00 [place] [address] Assigned Heart and Vascular Provider 11/13/22 05/27/23 Sydnie Martinez, RN Personal Advocate & Liaison (PAL) Family Medicine 03/28/23 07/31/23 Alfonso Renteria MD 5775 [facility] 200 [place] [address] Assigned Neuroscience Provider 04/02/23 09/29/24 Cheng Todd PA-C [address] [place] [address] [phone] Assigned PCP 04/30/23 07/15/23 Radha Lomeli APRN GAMBLING CASHIER [address] [place] [address] Assigned Heart and Vascular Provider 05/28/23 Jelena David OD [address] [facility] [address] MD Ophthalmology 06/15/23 Pao Joseph, RN Personal Advocate & Liaison (PAL) Nurse 08/01/23 11/07/23 Esha Grimm PA-C [address] [place] [phone] Assigned PCP 07/16/23 Valery Veronica PA-C [address] [place] [address] 046995 Physician Professor Of Voice Dermatology 09/19/23 Rey Tay MD [address] [place] [address] 703795 MD Gastroenterology 09/20/23 Rocky Zepeda DO [address] [place] [address] 069235 Physician Gastroenterology 09/20/23 Philip Dumont MD [address] [place] [address] 796875 Physician Ophthalmology 09/22/23 Meredith Carrera PA-C [address] [place] [address] 936395 Assigned Gastroenterology Provider 11/01/23 Neil Kent MD [address] [address] Dermatology 11/02/23 [place] [address] [place] [address] Neurological Surgery 12/26/23 Audrey Waite PA-C 500 [place] [address] Physician Professor Of Voice Dermatology 02/28/24 Valery Veronica PA-C [address]84 [address] [place] [address] Physician Professor Of Voice Dermatology 04/10/24 Herminia Hatch MD [address] [place] [address] [phone] Assigned Rheumatology Provider 07/02/24 Jelena David, SONJA [address] [place] [address] [place] [address] Ophthalmology 08/30/24 [place] [address] [place] [address] Assigned Neuroscience Provider 09/30/24 Maru Man PA-C [address] [place] [address] Physician Professor Of Voice Dermatology 10/03/24 Maru Man PA-C [address] [place] [address] Physician Professor Of Voice Dermatology 10/22/24 Jelena David OD [address] [place] [address] [place] [address] Assigned Surgical Provider 10/31/24 documented as of this encounter
--- OUTSIDE RECORDS SUMMARY | 2024-11-21 05:10 | XMS_ITS | Encounter Summary ---
Author Organization [facility] Address [address] [place] [address] Care Team Providers Care Health And Social Care Teacher Name Role Phone Lita Oseguera Unavailable Unavailable Marija Edgar APRN INDUSTRIAL COMMERCIAL GROUNDSKEEPER Primary Care Provider + Chanelle Mccann APRN CNM Unavailab le Kyara De La Fuente RN Unavailable [phone] Marija Edgar APRN INDUSTRIAL COMMERCIAL GROUNDSKEEPER Unavailable Mynor Broussard MD Unavailable [phone] Keisha Dotson MD Unavailable [phone] Stacey Briones TIMBER APPRAISER Unavailable Lesley Guillermo CHW Unavailable Mary Mejia Unavailable Unavailable Lita Oseguera Unavailable Unavailable Galo Burrell MD Unavailable Unavailable Cristina Wood Unavailable Lesley Guillermo CHW Unavailable Meredith Bedoya Unavailable Unavailable Cristina Wood Unavailable Diana Desir [facility] Unavailable Rain Galaviz PA-C Unavailable Summer Lara MD Unavailable [phone] Summer Lara MD Unavailable [phone] Summer Lara MD Unavailable [phone] Tavia Wyatt MD Unavailable [phone] Johnny Murillo MD Unavailable [phone] Erica Farrell LADLE HANDLER INDUSTRIAL COMMERCIAL GROUNDSKEEPER Unavailable Vikas Teresitakaren Watson [facility] Unavailable Tavia Wyatt MD Unavailable [phone] Diana Desir [facility] Unavailable [phone] Rich Barrett MD Unavailable Neil Kent MD Unavailable Roney StoryM Unavailable Erica Farrell LADLE HANDLER INDUSTRIAL COMMERCIAL GROUNDSKEEPER Unavailable Diana Desir [facility] Unavailable [phone] Jelena David OD Unavailable Galo Burrell MD Unavailable Unavailable Livan Sharif MD Unavailable Livan Sharif MD Unavailable Catherine Cm MD Unavailable + Valery Veronica PA-C Unavailable [phone] Catherine Cm MD Unavailable + Johnny Murillo MD Unavailable [phone] Brea Quinn APRN INDUSTRIAL COMMERCIAL GROUNDSKEEPER Unavailable [phone] Brea Quinn APRN INDUSTRIAL COMMERCIAL GROUNDSKEEPER Unavailable [phone] Jose Francisco Johnson MD Unavailable Livan Sharif MD Unavailable + Catherine Cm MD Unavailable + Sydnie Martinez RN Unavailable Unavailable Alfonso Renteria MD Unavailable [phone] Esha Grimm PA-C Primary Care Provider Perez Chengjc Fish PA-C Unavailable Armani Radha Stovall ARLENE GRANADOS Unavailable Jelena David OD Unavailable Pao Joseph RN Unavailable Unavailable Ehsa Grimm PA-C Unavailable [phone] Valery Veronica PA-C Unavailable Rey Tay MD Unavailable Rocky Zepeda DO Unavailable Philip Dumont MD Unavailable Meredith Carrera PA-C Unavailable [phone] Neil Kent MD [...] Care Team (Latest Contact Info) Description 09/02/2020 [facility] [place] [address] [address] Marija Edgar APRN [facility] [address] [facility] [place] [address] MyChart Communication Social History Tobacco Use [...] Date Recorded PHQ-2 Score 0 08/12/2020 [facility] of Occupat ional [...] CDT Legal Sex Female 4:13 AM AUTOMATIC GRINDER OPERATOR Gender Identity Female 03/02/2021 5:45 PM CDT Sexual Orientation Straight 02/28/2020 12 :51 AM CDT COVID-19 Exposure Response Date Recorded In the last month, have you been in contact with someone who was confirmed or suspected to have Coronavirus / COVID-19? No / Unsure 09/05/2020 2:50 PM AUTOMATIC GRINDER OPERATOR documented as of this encounter Miscellaneous Notes * Telephone Encounter - Ever Cardozo MA - 09/03/2020 10:34 AM CST Responded to patient as below. Ever Cardozo REPRODUCTION PRODUCTION MANAGER (AAMA) MATIC GRINDER OPERATOR documented in this encounter Plan of Treatment Upcoming Encounters Date Type Department Care Team (Late st Contact Info) Description 11/21/2024 7:00 AM CDT Office Visit [address] [phone] Maru Man PA-C [address] [place] [address] 12/20/2024 2:30 PM CDT Office Visit [facility] [phone] [place] [phone] Esha Grimm PA-C [address] [place] [phone] 04/16/2025 11:00 AM CDT Virtual Visit [facility] [address] 4th [place] [phone] Meredith Carrera PA-C [address] [place] [address] (work) documented as of this encounter Visit Diagnoses Not on filedocumented in this encounter Additional Health Concerns Infection Onset Date Last Indicated Resolved Time Rule Out COVID-19 09/24/2020 09/24/2020 09/24/2020 9:24 AM CDT Rule Out COVID-19 11/05/2020 11/05/2020 11/06/2020 1:09 PM CDT Rule Out COVID-19 05/11/2021 05/11/2021 05/13/2021 10:18 AM CDT Rule Out COVID-19 07/13/2021 07/13/2021 07/14/2021 3:04 PM AUTOMATIC GRINDER OPERATOR Rule Out COVID-19 07/18/2021 07/18/2021 07/20/2021 1:56 PM AUTOMATIC GRINDER OPERATOR COVID-19 07/18/2021 07/18/2021 08/08/2021 11:3 9 PM AUTOMATIC GRINDER OPERATOR Rule Out COVID-19 12/18/2021 12/18/2021 12/19/2021 11:34 AM CDT Rule Out COVID-19 02/24/2022 02/24/2022 02/25/2022 1:08 PM CDT Rule Out COVID-19 04/26/2022 04/26/2022 04/26/2022 6:47 AM CDT Rule Out COVID-19 05/17/2022 05/17/2022 05/17/2022 10:20 PM AUTOMATIC GRINDER OPERATOR Rule Out COVID-19 06/09/2022 06/09/2022 06/09/2022 9:35 AM AUTOMATIC GRINDER OPERATOR COVID-19 06/09/2022 06/09/2022 06/30/2022 11:4 1 PM AUTOMATIC GRINDER OPERATOR Rule Out COVID-19 11/10/2022 11/10/2022 11/11/2022 12:17 PM CDT Rule Out COVID-19 03/07/2023 03/07/2023 03/07/2023 1:20 PM CDT Rule Out COVID-19 12/26/2023 12/26/2023 12/26/2023 9:50 AM CDT Rule Out COVID-19 04/09/2024 04/09/2024 04/10/2024 6:48 PM CDT Rule Out COVID-19 10/04/2024 10/04/2024 10/05/2024 9:42 AM CDT Rule Out COVID-19 11/20/2024 11/20/2024 Assessment Noted Time PHQ-9 Depression Total Score: 9 06/25/20 7:04 AM AUTOMATIC GRINDER OPERATOR documented as of this encounter Care Teams Health And Social Care Teacher Relationship Specialty Start Date End Date Marija Edgar APRN INDUSTRIAL COMMERCIAL GROUNDSKEEPER PCP - General Nurse Practitioner 04/30/20 04/14/23 Esha Grimm PA-C [address] [place] [phone] PCP - General Family Medicine 05/04/23 Lita Oseguera Personal Advocate & Liaison (PAL) 02/28/20 03/27/23 Chanelle Mccann APRN CNM [address] [place] [address] [address] [place] [address] Assigned OBGYN Provider 05/02/2005/09 Kyara De La Fuente, VJ Specialty Laundry Operator Neurology 06/04/20 03/05/21 Marija Edgar APRN INDUSTRIAL COMMERCIAL GROUNDSKEEPER Assigned PCP 06/08/20 04/29/23 Mynor Broussard MD [address] [facility] 500 [place] [address] Assigned Surgical Provider 06/01/20 11/28/21 Keisha Dotson MD 909 [place] [address] Assigned Neuroscience Provider 06/04/20 04/01/23 Stacey Briones, [facility] Lead Laundry Operator Primary Care - CC 08/11/2012/30 Lesley Guillermo, [facility] Community Health Worker 08/11/2010/01 Mary Mejia Financial Resource Worker 09/02/20 10/06/20 Lita Oseguera Personal Advocate & Liaison (PAL) Family Medicine 09/10/20 09/21/20 Galo Burrell MD Assigned Heart and Vascular Provider 10/05/20 04/02/22 Cristina Wood Financial Resource Worker 10/07/20 10/14/20 Lesley Guillermo, [facility] Community Health Worker 10/23/2012/30 Meredith Bedoya Financial Resource Worker 10/23/20 11/23/20 Cristina Wood Financial Resource Worker 02/09/21 02/09/21 Diana Desir, [facility] [address] [place] [address] Pharmacist Pharmacist 04/17/21 Rain Galaviz PA-C [address] [place] [address] [place] [address] Physician Auto Porter Dermatology 04/28/21 Summer Lara MD [address] [place] [address] Assigned OBGYN Provider 05/10/2105/23 Summer Lara MD [address] [place] [address] Assigned OBGYN Provider 05/31/21 Summer Lara MD [address] [place] [address] Assigned OBGYN Provider 05/24/2105/30 Tavia Wyatt MD [address] [place], [place] 8938[address] Dermatology 07/14/21 Johnny Murillo MD [address] [place] [address] Assigned Musculoskeletal Provider 08/30/21 03/17/22 Erica Farrell APRN INDUSTRIAL COMMERCIAL GROUNDSKEEPER [address] [facility] [address] [place] [address] Nurse Practitioner Cardiovascular Disease 09/09/21 Teresita Bean, [facility] [address] [place] [address] Pharmacist Pharmacist 09/24/21 09/29/21 Tavia Wyatt MD [address] [place], [place] 830170 Assigned Surgical Provider 11/29/21 05/07/22 Diana Desir, [facility] [address] [place] [address] Assigned MTM Pharmacist 01/02/22 Rich Barrett MD [address] [place] [address] Physician Ophthalmology 01/21/22 Neil Kent MD 500 [place] [address] Dermatology 02/24/22 Roney Story DPM [address] [employer] [facility] [address] [place], [place] 894197 Assigned Musculoskeletal Provider 03/20/22 08/13/22 Erica Farrell APRN INDUSTRIAL COMMERCIAL GROUNDSKEEPER 1700 [place] [address] Assigned Heart and Vascular Provider 04/03/22 04/16/22 Diana Desir, [facility] [address] [place] [address] Assigned MTM Pharmacist 04/07/22 Jelena David OD [address] [facility] [place] [address] Assigned Surgical Provider 05/08/22 10/08/22 Galo Burrell MD Assigned Heart and Vascular Provider 04/17/22 06/11/22 Livan Sharif MD [address] [place] 385125 Cardiovascular Disease 05/14/22 Livan Sharif MD [address] [place] 872805 Assigned Heart and Vascular Provider 06/12/22 07/23/22 Catherine Cm MD [address] [id number] [place] [address] Cardiovascular Disease 07/21/22 Valery Veronica, PA-C [address] [place] [address] 121715 Physician Auto Porter Dermatology 07/21/22 Catherine Cm MD [address] [address] Assigned Heart and Vascular Provider 07/24/22 11/05/22 Johnny Murillo MD [address] [place] [address] Assigned Musculoskeletal Provider 08/14/22 10/08/22 Brea Quinn APRN INDUSTRIAL COMMERCIAL GROUNDSKEEPER [address] [place] [address] 416355 Nurse Practitioner Dermatology 09/21/22 Brea Quinn APRN INDUSTRIAL COMMERCIAL GROUNDSKEEPER [address] [place] [address] Assigned Surgical Provider 10/09/22 05/01/24 [place] [address] [address] Assigned Musculoskeletal Provider 10/09/22 05/01/24 Livan Sharif MD [address] [place] [address] Assigned Heart and Vascular Provider 11/06/22 11/12/22 Catherine Cm MD [address] [place] [address] Assigned Heart and Vascular Provider 11/13/22 05/27/23 Sydnie Martinez RN Personal Advocate & Liaison (PAL) Family Medicine 03/28/23 07/31/23 Alfonso Renteria MD 5775 [facility] 200 [place] [address] Assigned Neuroscience Provider 04/02/23 09/29/24 Cheng Todd PA-C [address] [place] [address] Assigned PCP 04/30/23 07/15/23 Radha Lomeli APRN INDUSTRIAL COMMERCIAL GROUNDSKEEPER [address] [place] [address] Assigned Heart and Vascular Provider 05/28/23 Jelena David OD [facility] [facility] [place] [address] Ophthalmology 06/15/23 Pao Joseph, VJ Personal Advocate & Liaison (PAL) Nurse 08/01/23 11/07/23 Esha Grimm PA-C [address] [place] [phone] Assigned PCP 07/16/23 Valery Veronica PA-C [address] [place] [address] Physician Auto Porter Dermatology 09/19/23 Rey Tay MD [address] [place] [address] MD Gastroenterology 09/20/23 Rocky Zepeda DO [address] [place] [address] Physician Gastroenterology 09/20/23 Philip Dumont MD [address] [place] [address] Physician Ophthalmology 09/22/23 Meredith Carrera PA-C [address] [place] [address] Assigned Gastroenterology Provider 11/01/23 Neil Kent MD [address] [address] Dermatology 11/02/23 [place] [address] [address] Neurological Surgery 12/26/23 Audrey Waite PA-C [address] [place] [address] Physician Auto Porter Dermatology 02/28/24 Valery Veronica PA-C 109657 [address] [place] [address] Physician Auto Porter Dermatology 04/10/24 Herminia Hatch MD [facility] [place] [address] Assigned Rheumatology Provider 07/02/24 Jelena David OD [address] [place] [address] [place] [address] Ophthalmology 08/30/24 [place] [address] [place] [address] Assigned Neuroscience Provider 09/30/24 Maru Man PA-C [address] [place] [address] Physician Auto Porter Dermatology 10/03/24 Maru Man PA-C [address] [place] [address] Physician Auto Porter Dermatology 10/22/24 Jelena David OD [address] [place] [address] [place] [address] Assigned Surgical Provider 10/31/24 documented as of this encounter
--- OUTSIDE RECORDS SUMMARY | 2024-11-21 05:10 | XMS_ITS | Encounter Summary ---
Author Organization [facility] Address [address] [place] [address] Care Team Providers Care Lace Mender Name Role Phone Diana Desir [facility] Unavailable Rain Galaviz PA-C Unavailable Tavia Wyatt MD Unavailable Erica Farrell APRN SHIPPING RECEIVING CLERK Unavailable Rich Barrett MD Unavailable [phone] Neil Kent MD Unavailable DesirDiana [facility] Unavailable [phone] Livan Sharif MD Unavailable Catherine Cm MD Unavailable + Valery Veronica PA-C Unavailable [phone] Brea Quinn APRN SHIPPING RECEIVING CLERK Unavailable Brea Quinn TRAILER DRIVER SHIPPING RECEIVING CLERK Unavailable Jose Francisco Johnson MD Unavailable Sydnie Martinez RN Unavailable Unavailable Alfonso Renteria MD Unavailable [phone] Esha Grimm PA-C Primary Care Provider [phone] Cheng Todd PA-C Unavailable [phone] Radha Lomeli APRPhani GRANADOS Unavailable Jelena David OD Unavailable Pao Joseph RN Unavailable Unavailable Esha Grimm Adam PA-C Unavailable [phone] Valery Veronica PA-C Unavailable Rey Tay MD Unavailable Rocky Zepeda DO Unavailable Philip Dumont MD Unavailable Meredith Carrera PA-C Unavailable Neil Kent MD Unavailable Juan Pablo Emmanuel MD Unavailable Audrey Waite PA-C Unavailable JeremíasValery damon PA-C Unavailable eHrminia Hatch MD Unavailable Jelena David OD Unavailable Juan Pablo Emmnauel MD Unavailable Maru Man PA-C Unavailable Maru Man PA-C Unavailable Jelena David OD Unavailable Encounter Details Date Type Department Care Team (Late st Contact Info) Description 06/15/2023 [facility] [place] [facility] [address] [phone] Doris Levi Social History Tobacco [...] do you attend [facility] or hoahaoism services? 1 to 4 [...] Answer Date Recorded PHQ-2 Score 1 05/16/2023 [facility] of Occupat ional [...] PM CDT Legal Sex Female 4:13 AM RECRUITMENT ASSISTANT Gender Identity Female 03/02/2021 5:45 PM CDT Sexual Orientation Straight 02/28/2020 12 :51 AM CDT documented as of this encounter Plan of Treatment Upcoming Encounters Date Type Department Care Team (Late st Contact Info) Description 11/21/2024 7:00 AM CDT Office Visit [address] [place] [phone] Maru Man PA-C [address] [address] 12/20/2024 2:30 PM CDT Office Visit [facility] [address] [place] [address] Esha Grimm PA-C [address] [place] [address] 04/16/2025 11:00 AM CDT Virtual Visit [facility] [address] [phone] Meredith Carrera PA-C [address] [place] [address] 493[address] documented as of this encounter Visit Diagnoses [...] Depression Total Score: 6 05/16/20 9:29 AM RECRUITMENT ASSISTANT documented as of this encounter Care Teams Lace Mender Relationship Specialty Start Date End Date Esha Grimm PA-C [address] [place] [address] PCP - General Family Medicine 05/04/23 Diana Desir, [facility] [address] [place] [address] Pharmacist Pharmacist 04/17/21 Rain Galaviz PA-C [address] [place] [address] [address] [place] [address] Physician Soft Work Wrapper Layer And Examiner Dermatology 04/28/21 Tavia Wyatt MD [address] [place] [address] [address] [facility] [place] [address] Dermatology 07/14/21 Erica Farrell APRN SHIPPING RECEIVING CLERK [address] [place] 503755 Nurse Practitioner Cardiovascular Disease 09/09/21 Rich Barrett MD [address] [place] 57[address]15 Physician Ophthalmology 01/21/22 Neil Kent MD 500 [place] [address] Dermatology 02/24/22 [facility] 3033 [place] [address] Assigned MTM Pharmacist 04/07/22 Livan Sharif MD [address] [place] [address] Cardiovascular Disease 05/14/22 Catherine Cm MD [address] [place] [address] Cardiovascular Disease 07/21/22 Valery Veronica PA-C 909 [place] [address] Physician Soft Work Wrapper Layer And Examiner Dermatology 07/21/22 Brea Quinn APRN SHIPPING RECEIVING CLERK [address] [place] [address] Nurse Practitioner Dermatology 09/21/22 Brea Quinn APRN SHIPPING RECEIVING CLERK 6401 [place] [address] Assigned Surgical Provider 10/09/22 05/01/24 [place] [address] [facility] [address] [place] [address] Assigned Musculoskeletal Provider 10/09/22 05/01/24 Sydnie Martinez RN Personal Advocate & Liaison (PAL) Family Medicine 03/28/23 07/31/23 Alfonso Renteria MD [address] [facility] 200 [place], [place] [address]8926 Assigned Neuroscience Provider 04/02/23 09/29/24 Cheng Todd PA-C [address] [place] [address] [id number] Assigned PCP 04/30/23 07/15/23 Radha Lomeli APRN SHIPPING RECEIVING CLERK [address] [place] [address] [id number] [place] [address] Assigned Heart and Vascular Provider 05/28/23 Jelena David OD [address] [place] [address] MD Ophthalmology 06/15/23 Pao Joseph, RN Personal Advocate & Liaison (PAL) Nurse 08/01/23 11/07/23 Esha Grimm PA-C [address] [place] [phone] Assigned PCP 07/16/23 Valery Veronica PA-C [address] [place] [address] 919635 Physician Soft Work Wrapper Layer And Examiner Dermatology 09/19/23 eRy Tay MD [address] [place] [address] MD Gastroenterology 09/20/23 Rocky Zepeda DO [address] [place] [address] 266345 Physician Gastroenterology 09/20/23 Philip Dumont MD [address] [place] [address] 903785 Physician Ophthalmology 09/22/23 Meredith Carrera PA-C [address] [place] [address] 632785 Assigned Gastroenterology Provider 11/01/23 Neil Kent MD [address] 280[address] Dermatology 11/02/23 [place] [address] [place] [address] Neurological Surgery 12/26/23 Audrey Waite PA-C 500 [place] [address] Physician Soft Work Wrapper Layer And Examiner Dermatology 02/28/24 Valery Veronica PA-C 161964 99 [place] [address] Physician Soft Work Wrapper Layer And Examiner Dermatology 04/10/24 Herminia Hatch MD [address] [place] [address] [id number] Assigned Rheumatology Provider 07/02/24 Jelena David, SONJA [address] [place] [address] [place] [address] Ophthalmology 08/30/24 [place] [address] [place] [address] Assigned Neuroscience Provider 09/30/24 Maru Man PA-C [address] [place] [address] Physician Soft Work Wrapper Layer And Examiner Dermatology 10/03/24 Maru Man PA-C [address] [place] [address] Physician Soft Work Wrapper Layer And Examiner Dermatology 10/22/24 Jelena David OD [address] [facility] [address] [place] [address] Assigned Surgical Provider 10/31/24 documented as of this encounter
--- OUTSIDE RECORDS SUMMARY | 2024-11-21 05:10 | XMS_ITS | Clinical Summary ---
Author Organization [facility] Address [address] [address] Phone Care Team Providers Care Waiter/Waitress Tourist Class Name Role Phone Unavailable Primary Care Provider [...] Not on file Insurance BCBS OTHER [facility] Commercial Address: [address] [place] [address]
--- OUTSIDE RECORDS SUMMARY | 2024-11-21 05:10 | XMS_ITS | Encounter Summary ---
Author Organization [facility] Address [address] [place] [address] Care Team Providers Care Automation Architect Name Role Phone Lita Oseguera Unavailable Unavailable Marija Edgar APRN FINANCIAL COACH Primary Care Provider + Chanelle Mccann APRN CNM Unavailab le Kyara De La Fuente RN Unavailable [phone] Marija Edgar APRN FINANCIAL COACH Unavailable Mynor Broussard MD Unavailable [phone] Keisha Dotson MD Unavailable Stacey Briones PROGRAM DEVELOPMENT MANAGER Unavailable Lesley Guillermo CHW Unavailable Mary Mejia Unavailable Unavailable Lita Oseguera Unavailable Unavailable Galo Burrell MD Unavailable Unavailable Cristina Wood Unavailable Lesley Guillermo CHW Unavailable Meredith Bedoya Unavailable Unavailable Cristina Wood Unavailable Diana Desir [facility] Unavailable [phone] Rain Galaviz PA-C Unavailable Summer Lara MD Unavailable [phone] Summer Lara MD Unavailable [phone] Summer Lara MD Unavailable [phone] Tavia Wyatt MD Unavailable [phone] Johnny Murillo MD Unavailable [phone] Erica Farrell ACDS BLOCK 1 OPERATOR FINANCIAL COACH Unavailable Vikas Teresitakaren Watson [facility] Unavailable Tavia Wyatt MD Unavailable [phone] Diana Desir [facility] Unavailable [phone] Rich Barrett MD Unavailable Neil Kent MD Unavailable Roney StoryM Unavailable Erica Farrell ACDS BLOCK 1 OPERATOR FINANCIAL COACH Unavailable Diana Desir [facility] Unavailable [phone] Jelena David OD Unavailable Galo Burrell MD Unavailable Unavailable Livan Sharif MD Unavailable Livan Sharif MD Unavailable Catherine Cm MD Unavailable + Valery Veronica PA-C Unavailable [phone] Catherine Cm MD Unavailable + Johnny Murillo MD Unavailable +[phone] Brea Quinn APRN FINANCIAL COACH Unavailable [phone] Brea Quinn APRN FINANCIAL COACH Unavailable [phone] Jose Francisco Johnson MD Unavailable Livan Sharif MD Unavailable + Catherine Cm MD Unavailable + Sydnie Martinez RN Unavailable Unavailable Alfonso Renteria MD Unavailable [phone] Esha Grimm PA-C Primary Care Provider Cheng Todd PA-C Unavailable Armani Radha Sia JACOBS CNP Unavailable Jelena David OD Unavailable Pao Joseph RN Unavailable Unavailable Esha Grimm PA-C Unavailable [phone] Valery Veronica PA-C Unavailable Rey Tay MD Unavailable Rocky Zepeda DO Unavailable Philip Dumont MD Unavailable Meredith Carrera PA-C Unavailable Neil Kent MD Unavailable Juan Pablo Emmanuel MD Unavailable Audrey Waite PA-C Unavailable Valery Veronica PA-C Unavailable Herminia Hatch MD Unavailable Jelena David OD Unavailable Juan Pablo Emmanuel MD Unavailable Maru Man PA-C Unavailable [phone] Maru Man PA-C Unavailable Jelena David OD Unavailable Encounter Details Date Type Department Care Team (Late st Contact Info) Description 08/24/2020 [facility] [address] [phone] Marija Edgar APRN FINANCIAL COACH [address] [place] [address] Social History Tobacco Use Types Packs/Day [...] How often do you attend [facility] or mu-ism services? More than 4 times [...] Date Recorded PHQ-2 Score 0 08/12/2020 [facility] [...] CDT Legal Sex Female 4:13 AM SECURITY PUBLIC SAFETY OFFICER Gender Identity Female 03/02/2021 5:45 PM CDT Sexual Orientation Straight 02/28/2020 12 :51 AM CDT COVID-19 Exposure Response Date Recorded In the last month, have you been in contact with someone who was confirmed or suspected to have Coronavirus / COVID-19? No / Unsure 08/20/2020 12:47 PM SECURITY PUBLIC SAFETY OFFICER documented as of this encounter Miscellaneous Notes * Telephone Encounter - Marija Edgar APRN FINANCIAL COACH - 08/25/2020 11:47 AM SECURITY PUBLIC SAFETY OFFICER Replied via MyChart Marija Edgar APRN FINANCIAL COACH on 08/25/2020 at 11:51 AM RITY PUBLIC SAFETY OFFICER documented in this encounter Plan of Treatment Upcoming Encounters Date Type Department Care Team (Late st Contact Info) Description 11/21/2024 7:00 AM CDT Office Visit [facility] [address] [phone] Maru Man PA-C [address] [place] [address] 12/20/2024 2:30 PM CDT Office Visit [facility] [address] [place] [phone] Esha Grimm PA-C [id number] [place] [phone] 04/16/2025 11:00 AM CDT Virtual Visit [facility] [address] 4th [place] [phone] Meredith Carrera PA-C [address] [place] [address] [phone] (work) documented as of this encounter Visit Diagnoses Not on filedocumented in this encounter Additional Health Concerns Infection Onset Date Last Indicated Resolved Time Rule Out COVID-19 08/30/2020 08/30/2020 08/30/2020 5:05 PM SECURITY PUBLIC SAFETY OFFICER Rule Out COVID-19 09/24/2020 09/24/2020 09/24/2020 9:24 AM CDT Rule Out COVID-19 11/05/2020 11/05/2020 11/06/2020 1:09 PM CDT Rule Out COVID-19 05/11/2021 05/11/2021 05/13/2021 10:18 AM CDT Rule Out COVID-19 07/13/2021 07/13/2021 07/14/2021 3:04 PM SECURITY PUBLIC SAFETY OFFICER Rule Out COVID-19 07/18/2021 07/18/2021 07/20/2021 1:56 PM SECURITY PUBLIC SAFETY OFFICER COVID-19 07/18/2021 07/18/2021 08/08/2021 11:3 9 PM SECURITY PUBLIC SAFETY OFFICER Rule Out COVID-19 12/18/2021 12/18/2021 12/19/2021 11:34 AM CDT Rule Out COVID-19 02/24/2022 02/24/2022 02/25/2022 1:08 PM CDT Rule Out COVID-19 04/26/2022 04/26/2022 04/26/2022 6:47 AM CDT Rule Out COVID-19 05/17/2022 05/17/2022 05/17/2022 10:20 PM SECURITY PUBLIC SAFETY OFFICER Rule Out COVID-19 06/09/2022 06/09/2022 06/09/2022 9:35 AM SECURITY PUBLIC SAFETY OFFICER COVID-19 06/09/2022 06/09/2022 06/30/2022 11:4 1 PM SECURITY PUBLIC SAFETY OFFICER Rule Out COVID-19 11/10/2022 11/10/2022 11/11/2022 12:17 PM CDT Rule Out COVID-19 03/07/2023 03/07/2023 03/07/2023 1:20 PM CDT Rule Out COVID-19 12/26/2023 12/26/2023 12/26/2023 9:50 AM CDT Rule Out COVID-19 04/09/2024 04/09/2024 04/10/2024 6:48 PM CDT Rule Out COVID-19 10/04/2024 10/04/2024 10/05/2024 9:42 AM CDT Rule Out COVID-19 11/20/2024 11/20/2024 Assessment Noted Time PHQ-9 Depression Total Score: 9 06/25/20 7:04 AM SECURITY PUBLIC SAFETY OFFICER documented as of this encounter Care Teams Automation Architect Relationship Specialty Start Date End Date Marija Edgar APRN FINANCIAL COACH PCP - General Nurse Practitioner 04/30/20 04/14/23 Esha Grimm PA-C [address] [place] [phone] PCP - General Family Medicine 05/04/23 Lita Oseguera Personal Advocate & Liaison (PAL) 02/28/20 03/27/23 Chanelle Mccann APRN CNM [address] [place] [address] [address] [place] [address] Assigned OBGYN Provider 05/02/2005/09 Kyara De La Fuente, RN Specialty Supervisor Fine Grading Neurology 06/04/20 03/05/21 Marija Edgar APRN FINANCIAL COACH Assigned PCP 06/08/20 04/29/23 Mynor Broussard MD [address] [facility] [address] [place] [address] Assigned Surgical Provider 06/01/20 11/28/21 Keisha Dotson MD [address] [place], [place] [phone] Assigned Neuroscience Provider 06/04/20 04/01/23 Stacey Briones, [facility] Lead Supervisor Fine Grading Primary Care - CC 08/11/2012/30 Lesley Guillermo, [facility] Community Health Worker 08/11/2010/01 Mary Mejia Financial Resource Worker 09/02/20 10/06/20 Lita Oseguera Personal Advocate & Liaison (PAL) Family Medicine 09/10/20 09/21/20 Galo Burrell MD Assigned Heart and Vascular Provider 10/05/20 04/02/22 Cristina Wood Financial Resource Worker 10/07/20 10/14/20 Lesley Guillermo, [facility] Community Health Worker 10/23/2012/30 Meredith Bedoya Financial Resource Worker 10/23/20 11/23/20 Cristina Wood Financial Resource Worker 02/09/21 02/09/21 Diana Desir, [facility] [address] [place] [address] Pharmacist Pharmacist 04/17/21 Rain Galaviz PA-C [address] [place] [address] [address] [facility] [place] [phone] Physician Commercial Loan Officer Dermatology 04/28/21 Summer Lara MD [address] [place], [place] [address] Assigned OBGYN Provider 05/10/2105/23 Summer Lara MD [address] [place] [address] [place], [place] [address] Assigned OBGYN Provider 05/31/21 2 Summer Lara MD [address] [place] [address] 095964 Assigned OBGYN Provider 05/24/2105/30 Tavia Wyatt MD [address] [place] [address] 120804 Dermatology 07/14/21 Johnny Murillo MD [address] [place] [address] Assigned Musculoskeletal Provider 08/30/21 03/17/22 Erica Farrell APRN [facility] [address] [facility] [address] [place] [address] Nurse Practitioner Cardiovascular Disease 09/09/21 Teresita Bean [facility] [address] [place] [phone] Pharmacist Pharmacist 09/24/21 09/29/21 Tavia Wyatt MD [address] [place], [place] [phone] Assigned Surgical Provider 11/29/21 05/07/22 Diana Desir, [facility] [address] [place] [address] Assigned MTM Pharmacist 01/02/22 Rich Barrett MD [address] [place], [place] [phone] Physician Ophthalmology 01/21/22 Neil Kent MD [address] [place], [place] [address] Dermatology 02/24/22 Roney Story DPM 113[address] [facility] [address] [place], [place] [address] Assigned Musculoskeletal Provider 03/20/22 08/13/22 Erica Farrell APRN FINANCIAL COACH [facility] [place] [address] Assigned Heart and Vascular Provider 04/03/22 04/16/22 Diana Desir, [facility] [address] [place] [address] Assigned MTM Pharmacist 04/07/22 Jelena David OD [address] [facility] [place] [address] Assigned Surgical Provider 05/08/22 10/08/22 Galo Burrell MD Assigned Heart and Vascular Provider 04/17/22 06/11/22 Livan Sharif MD [address] [place] [phone] Cardiovascular Disease 05/14/22 Livan Sharif MD [address] [facility] [address] [place] [address] Assigned Heart and Vascular Provider 06/12/22 07/23/22 Catherine Cm MD [address] [facility] [address] [place] [address] Cardiovascular Disease 07/21/22 Valery Veronica, PA-C [address] [place] [address] [phone] Physician Commercial Loan Officer Dermatology 07/21/22 Catherine Cm MD [address] [place] [phone] [place] [address] Assigned Heart and Vascular Provider 07/24/22 11/05/22 Johnny Murillo MD [address] [place] [address] 745274 Assigned Musculoskeletal Provider 08/14/22 10/08/22 Brea Quinn APRN FINANCIAL COACH [address] [place] [address] 434175 Nurse Practitioner Dermatology 09/21/22 Brea Quinn APRN FINANCIAL COACH [address] [place] [address] [place] [phone] Assigned Surgical Provider 10/09/22 05/01/24 [place] [address] [place] [address] Assigned Musculoskeletal Provider 10/09/22 05/01/24 Livan Sharif MD [address] [place] [phone] Assigned Heart and Vascular Provider 11/06/22 11/12/22 Catherine Cm MD [address] [place] 8[address]35 Assigned Heart and Vascular Provider 11/13/22 05/27/23 Sydnie Martinez RN Personal Advocate & Liaison (PAL) Family Medicine 03/28/23 07/31/23 Alfonso Renteria MD [address] [facility] [address] [place] [address] Assigned Neuroscience Provider 04/02/23 09/29/24 Cheng Todd PA-C [address] [place] [address] [phone] Assigned PCP 04/30/23 07/15/23 Radha Lomeli APRN FINANCIAL COACH [address] [place] [address] Assigned Heart and Vascular Provider 05/28/23 Jelena David OD [address] [facility] [place] [address] Ophthalmology 06/15/23 Pao Joseph, VJ Personal Advocate & Liaison (PAL) Nurse 08/01/23 11/07/23 Esha Grimm PA-C [address] [place] [phone] Assigned PCP 07/16/23 Valery Veronica PA-C [address] [place], [place] 2[address] Physician Commercial Loan Officer Dermatology 09/19/23 Rey Tay MD [address] [place] [address] MD Gastroenterology 09/20/23 Rocky Zepeda DO [address] [place] [address] 329205 Physician Gastroenterology 09/20/23 Philip Dumont MD [address] [place] [address] 302195 Physician Ophthalmology 09/22/23 Meredith Carrera PA-C [address] [place] [address] 379315 Assigned Gastroenterology Provider 11/01/23 Neil Kent MD [address] [place] [address] Dermatology 11/02/23 [place] [address] [place] [address] Neurological Surgery 12/26/23 Audrey Waite PA-C [address] [place] [address] Physician Commercial Loan Officer Dermatology 02/28/24 Valery Veronica PA-C [id number] [facility] [place] [address] Physician Commercial Loan Officer Dermatology 04/10/24 Herminia Hatch MD [address] [place] [address] Assigned Rheumatology Provider 07/02/24 Jelena David OD [address] [place] [address] [place] [address] Ophthalmology 08/30/24 [place] [address] [place] [address] Assigned Neuroscience Provider 09/30/24 Maru Man PA-C [address] [place] [address] Physician Commercial Loan Officer Dermatology 10/03/24 Maru Man PA-C [address] [place] [address] Physician Commercial Loan Officer Dermatology 10/22/24 Jelena David OD [address] [place] [address] [place] [address] Assigned Surgical Provider 10/31/24 documented as of this encounter
--- OUTSIDE RECORDS SUMMARY | 2024-11-21 05:10 | XMS_ITS | Encounter Summary ---
Author Organization [facility] Address [address] [place] [address] 15[address] Care Team Providers Care Head Of Marketing Adometry Name Role Phone Lita Oseguera Unavailable Unavailable Marija Edgar APRN CABLE INSPECTOR Primary Care Provider + Chanelle Mccann APRN CNM Unavailab le Kyara De La Fuente RN Unavailable [phone] Marija Edgar APRN CABLE INSPECTOR Unavailable [phone] Mynor Broussard MD Unavailable [phone] Keisha Dotson MD Unavailable Mary Mejia Unavailable Unavailable Stacey Briones FILTER TENDER Unavailable Lesley Guillermo CHW Unavailable Mary Mejia Unavailable Unavailable Lita Oseguera Unavailable Unavailable Galo Burrell MD Unavailable Unavailable Cristina Wood Unavailable Lesley Guillermo CHW Unavailable Meredith Bedoya Unavailable Unavailable Cristina Wood Unavailable Diana Desir [facility] Unavailable Ruhland, Rain Lena PA-C Unavailable Summer Lara MD Unavailable Summer Lara MD Unavailable [phone] Summer Lara MD Unavailable [phone] Tavia Wyatt MD Unavailable [phone] Johnny Murillo MD Unavailable [phone] Erica Farrell APRN CABLE INSPECTOR Unavailable VikasTeresita H Unavailable Tavia Wyatt MD Unavailable [phone] Diana Desir [facility] Unavailable [phone] Rich Barrett MD Unavailable [phone] Neil Kent MD Unavailable Roney Story [facility] Unavailable Erica Farrell APRN CABLE INSPECTOR Unavailable Diana Desir [facility] Unavailable [phone] Jelena David OD Unavailable Galo Burrell MD Unavailable Unavailable Livan Sharif MD Unavailable Livan Sharif MD Unavailable Catherine Cm MD Unavailable + Valery Veronica PA-C Unavailable [phone] Catherine Cm MD Unavailable + Johnny Murillo MD Unavailable [phone] Brea Quinn APRN CABLE INSPECTOR Unavailable [phone] Brea uQinn ADVANCED MANUFACTURING CONSULTANT CABLE INSPECTOR Unavailable [phone] Jose Francisco Johnson MD Unavailable Livan Sharif MD Unavailable Catherine Cm MD Unavailable + Sydnie Martinez RN Unavailable Unavailable Alfonso Renteria MD Unavailable [phone] Esha Grimm PA-C Primary Care Provider Cheng Todd PA-C Unavailable Radha Lomeli APRN, CNP Unavailable Jelena David OD Unavailable Pao Joseph RN Unavailable Unavailable Esha Grimm PA-C Unavailable [phone] Valery Veronica PA-C Unavailable Rey Tay [...] Contact Info) Description 08/07/2020 [facility] [address] [place] [address] Mau Guillermolincoln Avendano, [facility] Social History Tobacco Use Types [...] Answer Date Recorded PHQ-2 Score 3 06/24/2020 [facility] [place] [facility] Occupat ional Health - Occupational Stress [...] PM CDT Legal Sex Female 4:13 AM PASSENGER SCREENER Gender Identity Female 03/02/2021 5:45 PM CDT Sexual Orientation Straight 02/28/2020 12 :51 AM CDT COVID-19 Exposure Response Date Recorded In the last month, have you been in contact with someone who was confirmed or suspected to have Coronavirus / COVID-19? No / Unsure 08/06/2020 2:03 PM PASSENGER SCREENER documented as of this encounter Functional Status documented as of this encounter Plan of Treatment Upcoming Encounters Date Type Department Care Team (Late st Contact Info) Description 11/21/2024 7:00 AM CDT Office Visit [facility] [address] [phone] Maru Man PA-C [address] [place] [address] 12/20/2024 2:30 PM CDT Office Visit [facility] [address] [place] [address] [phone] Esha Grimm PA-C [id number] [place] [address] [phone] 04/16/2025 11:00 AM CDT Virtual Visit [facility] [address] [place] [phone] Meredith Carrera PA-C [address] [place] [address] documented as of this encounter Visit Diagnoses Not on filedocumented in this encounter Additional Health Concerns Infection Onset Date Last Indicated Resolved Time Rule Out COVID-19 08/30/2020 08/30/2020 08/30/2020 5:05 PM PASSENGER SCREENER Rule Out COVID-19 09/24/2020 09/24/2020 09/24/2020 9:24 AM CDT Rule Out COVID-19 11/05/2020 11/05/2020 11/06/2020 1:09 PM CDT Rule Out COVID-19 05/11/2021 05/11/2021 05/13/2021 10:18 AM CDT Rule Out COVID-19 07/13/2021 07/13/2021 07/14/2021 3:04 PM PASSENGER SCREENER Rule Out COVID-19 07/18/2021 07/18/2021 07/20/2021 1:56 PM PASSENGER SCREENER COVID-19 07/18/2021 07/18/2021 08/08/2021 11:3 9 PM PASSENGER SCREENER Rule Out COVID-19 12/18/2021 12/18/2021 12/19/2021 11:34 AM CDT Rule Out COVID-19 02/24/2022 02/24/2022 02/25/2022 1:08 PM CDT Rule Out COVID-19 04/26/2022 04/26/2022 04/26/2022 6:47 AM CDT Rule Out COVID-19 05/17/2022 05/17/2022 05/17/2022 10:20 PM PASSENGER SCREENER Rule Out COVID-19 06/09/2022 06/09/2022 06/09/2022 9:35 AM PASSENGER SCREENER COVID-19 06/09/2022 06/09/2022 06/30/2022 11:4 1 PM PASSENGER SCREENER Rule Out COVID-19 11/10/2022 11/10/2022 11/11/2022 12:17 PM CDT Rule Out COVID-19 03/07/2023 03/07/2023 03/07/2023 1:20 PM CDT Rule Out COVID-19 12/26/2023 12/26/2023 12/26/2023 9:50 AM CDT Rule Out COVID-19 04/09/2024 04/09/2024 04/10/2024 6:48 PM CDT Rule Out COVID-19 10/04/2024 10/04/2024 10/05/2024 9:42 AM CDT Rule Out COVID-19 11/20/2024 11/20/2024 Assessment Noted Time PHQ-9 Depression Total Score: 9 06/25/20 20 7:04 AM PASSENGER SCREENER documented as of this encounter Care Teams Head Of Marketing Adometry Relationship Specialty Start Date End Date Marija Edgar APRN CABLE INSPECTOR PCP - General Nurse Practitioner 04/30/20 04/14/23 Esha Grimm PA-C [address] [place] [phone] PCP - General Family Medicine 05/04/23 Lita Oseguera Personal Advocate & Liaison (PAL) 02/28/20 03/27/23 Chanelle Mccann APRN CNAdam [address] [facility] [address] [place] [address] Assigned OBGYN Provider 05/02/2005/09 Kyara De La Fuente, RN Specialty Management Trainee Neurology 06/04/20 03/05/21 Marija Edgar APRN CABLE INSPECTOR Assigned PCP 06/08/20 04/29/23 Mynor Broussard MD [address] [facility] 500 [place] [address] Assigned Surgical Provider 06/01/20 11/28/21 Keisha Dotson MD 909 [place], [place] 738235 Assigned Neuroscience Provider 06/04/20 04/01/23 Mary Mejia Financial Resource Worker 08/07/20 08/21/20 Stacey Briones, FILTER TENDER Lead Management Trainee Primary Care - CC 08/11/2012/30 Lesley Guillermo, [facility] Community Health Worker 08/11/2010/01 Jackie Mary Financial Resource Worker 09/02/20 10/06/20 Lita Oseguera Personal Advocate & Liaison (PAL) Family Medicine 09/10/20 09/21/20 Galo Burrell MD Assigned Heart and Vascular Provider 10/05/20 04/02/22 Cristina Wood Financial Resource Worker 10/07/20 10/14/20 Lesley Guillermo, [facility] Community Health Worker 10/23/2012/30 Meredith Bedoya Financial Resource Worker 10/23/20 11/23/20 Cristina Wood Financial Resource Worker 02/09/21 02/09/21 Diana Desir, [facility] [address] [place] [address] Pharmacist Pharmacist 04/17/21 Rain Galaviz PA-C [address] [place] [address] [address] [place]RIOLA [place], [place] [phone] Physician Non Acoustic Operator Dermatology 04/28/21 Summer Lara MD [address] [place] [address] 183334 Assigned OBGYN Provider 05/10/2105/23 Summer Lara MD [address] [place] [address] 927614 Assigned OBGYN Provider 05/31/21 2 Summer Lara MD [address] [place] [address] Assigned OBGYN Provider 05/24/2105/30 Tavia Wyatt MD [address] [place] [address] Dermatology 07/14/21 Johnny Murillo MD [address] [place] [address] Assigned Musculoskeletal Provider 08/30/21 03/17/22 Erica Farrell APRN CABLE INSPECTOR [address] [facility] [address] [place] [address] Nurse Practitioner Cardiovascular Disease 09/09/21 Teresita Bean [facility] [address] [place] [place], [place] [phone] Pharmacist Pharmacist 09/24/21 09/29/21 Tavia Wyatt MD [address] [place] [address] Assigned Surgical Provider 11/29/21 05/07/22 [facility] [address] [place] [address] Assigned MTM Pharmacist 01/02/22 Rich Barrett MD [address] [place] [address] Physician Ophthalmology 01/21/22 Neil Kent MD 500 [place] [address] Dermatology 02/24/22 Roney Story DPM [address] [facility] [address] [place] [address] Assigned Musculoskeletal Provider 03/20/22 08/13/22 Erica Farrell APRN CABLE INSPECTOR 1700 [place] [address] Assigned Heart and Vascular Provider 04/03/22 04/16/22 Diana Desir, [facility] [address] [place] [address] Assigned MTM Pharmacist 04/07/22 Jelena David OD [address] [facility] [place] [address] Assigned Surgical Provider 05/08/22 10/08/22 Galo Burrell MD Assigned Heart and Vascular Provider 04/17/22 06/11/22 Livan Sharif MD [address] [place] [address] [place] [address] Cardiovascular Disease 05/14/22 Livan Sharif MD [address] [place] [address] [place] [address] Assigned Heart and Vascular Provider 06/12/22 07/23/22 Catherine Cm MD [address] [place] [address] [place] 069195 Cardiovascular Disease 07/21/22 Valery Veronica PA-C [address], [place] 47[address] Physician Non Acoustic Operator Dermatology 07/21/22 Catherine Cm MD [address] [place] [address] [place] [address] Assigned Heart and Vascular Provider 07/24/22 11/05/22 Johnny Murillo MD [address] [place] [address] Assigned Musculoskeletal Provider 08/14/22 10/08/22 Brea Quinn APRN CABLE INSPECTOR [address] [place] [address] Nurse Practitioner Dermatology 09/21/22 Brea Quinn APRN CABLE INSPECTOR [address] [place] [address] Assigned Surgical Provider 10/09/22 05/01/24 [place] [address] [place] [address] [address] Assigned Musculoskeletal Provider 10/09/22 05/01/24 Livan Sharif MD [address] [place] [address] [place] [address] Assigned Heart and Vascular Provider 11/06/22 11/12/22 Catherine Cm MD [address] [address] [place] [address] Assigned Heart and Vascular Provider 11/13/22 05/27/23 Sydnie Martinez, RN Personal Advocate & Liaison (PAL) Family Medicine 03/28/23 07/31/23 Alfonso Renteria MD 5775 [facility] 200 [place] [address] Assigned Neuroscience Provider 04/02/23 09/29/24 Cheng Todd PA-C [address] [place] [address] [phone] Assigned PCP 04/30/23 07/15/23 Radha Lomeli APRN CABLE INSPECTOR [address] [place] [address] Assigned Heart and Vascular Provider 05/28/23 Jelena David OD [facility] [facility] [place] [address] Ophthalmology 06/15/23 Pao Joseph RN Personal Advocate & Liaison (PAL) Nurse 08/01/23 11/07/23 Esha Grimm PA-C [address] [place] [address] Assigned PCP 07/16/23 Valery Veronica PA-C [address] [place] [address] Physician Non Acoustic Operator Dermatology 09/19/23 Rey Tay MD [address] [place] [address] Gastroenterology 09/20/23 Rocky Zepeda DO [address] [place] [address] Physician Gastroenterology 09/20/23 Philip Dumont MD [address] [place] [address] Physician Ophthalmology 09/22/23 Meredith Carrera PA-C [address] [place] [address] Assigned Gastroenterology Provider 11/01/23 Neil Kent MD [address] [place] [address] MD Dermatology 11/02/23 [place] [address] [place] [address] 888847 Neurological Surgery 12/26/23 Audrey Waite PA-C [address] [place] [address] Physician Non Acoustic Operator Dermatology 02/28/24 Valery Veronica PA-C [address]351 [address] [place] [address] Physician Non Acoustic Operator Dermatology 04/10/24 Herminia Hatch MD [address] [place] [address] [phone] Assigned Rheumatology Provider 07/02/24 Jelena David OD [address] [facility] [place] [address] Ophthalmology 08/30/24 [place] [address] [place] [address] Assigned Neuroscience Provider 09/30/24 Maru Man PA-C [address] [place] [address] Physician Non Acoustic Operator Dermatology 10/03/24 Maru Man PA-C [address] [place] [address] Physician Non Acoustic Operator Dermatology 10/22/24 Jelena David OD [address] [facility] [place] [address] Assigned Surgical Provider 10/31/24 documented as of this encounter
--- OUTSIDE RECORDS SUMMARY | 2024-11-21 05:10 | XMS_ITS | Encounter Summary ---
Author Organization [facility] Address [address] [place] [address] Care Team Providers Care Acct Exec Name Role Phone Lita Oseguera Unavailable Unavailable Marija Edgar APRN REGIONAL AIRLINE PILOT Primary Care Provider + Marija Edgar APRN REGIONAL AIRLINE PILOT Unavailable [phone] Keisha Dotson MD Unavailable Galo Burrell MD Unavailable Unavailable Diana Desir [facility] Unavailable [phone] Rain Galaviz PA-C Unavailable Summer Lara MD Unavailable [phone] Tavia Wyatt MD Unavailable Johnny Murillo MD Unavailable Erica Farrell APRN REGIONAL AIRLINE PILOT Unavailable Tavia Wyatt MD Unavailable Diana Desir [facility] Unavailable Rich Barrett MD Unavailable [phone] Neil Kent MD Unavailable Roney Story DPM Unavailable Erica Farrell APRN REGIONAL AIRLINE PILOT Unavailable Diana Desir [facility] Unavailable [phone] Jelena David OD Unavailable [phone] Galo Burrell MD Unavailable Unavailable HoLivan MD Unavailable Livan Sharif MD Unavailable IsCatherine hobbs MD Unavailable + Valery Veronica PA-C Unavailable [phone] Catherine Cm MD Unavailable + Johnny Murillo MD Unavailable [phone] Brea Quinn SENIOR NET ENGINEER REGIONAL AIRLINE PILOT Unavailable [phone] Brea Quinn SENIOR NET ENGINEER REGIONAL AIRLINE PILOT Unavailable [phone] Jose Francisco Johnson MD Unavailable Livan Sharif MD Unavailable + IsCatherine boothe MD Unavailable + Sydnie Martinez RN Unavailable Unavailable Alfonso Renteria MD Unavailable Esha Grimm PA-C Primary Care Provider Cheng Todd PA-C Unavailable Radha Lomeli SENIOR NET ENGINEER REGIONAL AIRLINE PILOT Unavailable [phone] Jelena David OD Unavailable Pao Joseph RN Unavailable Unavailable Esha Grimm PA-C Unavailable [phone] Valery Veronica PA-C Unavailable [phone] Rey Tay MD Unavailable Rocky Zepeda DO Unavailable Philip Dumont MD Unavailable [phone] Meredith Carrera PA-C Unavailable Neil Kent MD Unavailable Juan Pablo Emmanuel MD Unavailable [phone] Audrey [place]-C Unavailable [phone] Valery Veronica-C Unavailable [phone] Herminia Hatch MD Unavailable Jelena David OD Unavailable Juan Pablo Emmanuel MD Unavailable [phone] Maru Man PA-C Unavailable [phone] Maru Man PA-C Unavailable [phone] Jelena David OD Unavailable [phone] Encounter Details Date Type Department Care Team (Late st Contact Info) Description 01/22/2022 [facility] [address] [address] Diana [facility] [address] [place] [address] Social History Tobacco Use Types Packs/Day Years [...] How often do you attend temple or mormonism serv ices? Never 09/22/2021 Do you belong to any clubs o r organizations such as temple groups, unions, fraTHE [place] NOT[employer] NETWORK or athletic groups, or school groups? No [...] 12/18/2021 [facility] [...] a skilled nursing (including now)? No 09/22/2021 [place] Depression Scale Answer Date Recorded [place] Depression Score 5 01/14/2021 Last EPDS Self Harm Result Not on file 01/14 Education Answer Date Recorded What is the highest level of school you have completed or the highest degree you have received? 12th grade 08/07/2020 Comments No Sex and Gender Information Value Date Recorded Sex Assigned at Female 03/02/2021 5:45 PM CDT Legal Sex Female 4:13 AM FIRE SPRINKLER INSPECTOR Gender Identity Female 03/02/2021 5:45 PM [...] Description 11/21/2024 7:00 AM CDT Office Visit [facility] [address] [phone] Maru Man PA-C [address] 398520 12/20/2024 2:30 PM CDT Office Visit [facility] [address] [place] [address] Esha Grimm PA-C [address] [place] [address] 04/16/2025 11:00 AM CDT Virtual Visit [facility] [address] 4th [place] [address] Meredith Carrera PA-C [address] [place] [address] 011455 documented as of this encounter Visit Diagnoses Not on filedocumented in this encounter Additional Health Concerns Infection Onset Date Last Indicated Resolved Time Rule Out COVID-19 02/24/2022 02/24/2022 02/25/2022 1:08 PM CDT Rule Out COVID-19 04/26/2022 04/26/2022 04/26/2022 6:47 AM CDT Rule Out COVID-19 05/17/2022 05/17/2022 05/17/2022 10:20 PM FIRE SPRINKLER INSPECTOR Rule Out COVID-19 06/09/2022 06/09/2022 06/09/2022 9:35 AM FIRE SPRINKLER INSPECTOR COVID-19 06/09/2022 06/09/2022 06/30/2022 11:4 1 PM FIRE SPRINKLER INSPECTOR Rule Out COVID-19 11/10/2022 11/10/2022 11/11/2022 [...] documented as of this encounter Care Teams Acct Exec Relationship Specialty Start Date End Date Marija Edgar APRN REGIONAL AIRLINE PILOT PCP - General Nurse Practitioner 04/30/20 04/14/23 Esha Grimm PA-C [address] [place] [phone] PCP - General Family Medicine 05/04/23 Lita Oseguera Personal Advocate & Liaison (PAL) 02/28/20 03/27/23 Marija Edgar APRN REGIONAL AIRLINE PILOT Assigned PCP 06/08/20 04/29/23 Keisha Dotson MD [address] [place], [place] 350[address] Assigned Neuroscience Provider 06/04/20 04/01/23 Galo Burrell MD Assigned Heart and Vascular Provider 10/05/20 04/02/22 [facility] 30[address] [place], [place] 570646 Pharmacist Pharmacist 04/17/21 Rain Galaviz PA-C [address] [place] [address] DR [facility] [facility] [place] [address] Physician Principal Systems Architect Dermatology 04/28/21 Summer Lara MD [address] [place] [address] Assigned OBGYN Provider 05/31/21 Tavia Wyatt MD [address] [place] [address] Dermatology 07/14/21 Johnny Murillo MD [address] [place] [address] Assigned Musculoskeletal Provider 08/30/21 03/17/22 Erica Farrell APRN REGIONAL AIRLINE PILOT 6405 [facility] [address] [place], [place] 620615 Nurse Practitioner Cardiovascular Disease 09/09/21 Tavia Wyatt MD [address] [place] [address] Assigned Surgical Provider 11/29/21 05/07/22 Diana Desir, [facility] 3033 [place] [address] Assigned MTM Pharmacist 01/02/22 Rich Barrett MD 3033 [place] [address] Physician Ophthalmology 01/21/22 Neil Kent MD 500 [place] [address] Dermatology 02/24/22 Roney Story DPM [address] [place] [address] [place] [address] Assigned Musculoskeletal Provider 03/20/22 08/13/22 Erica Farrell APRN CNP 1700 [place] [address] Assigned Heart and Vascular Provider 04/03/22 04/16/22 [facility] [address] [place] [address] Assigned MTM Pharmacist 04/07/22 Jelena David OD [address] [facility] [place] [address] Assigned Surgical Provider 05/08/22 10/08/22 Galo Burrell MD Assigned Heart and Vascular Provider 04/17/22 06/11/22 Livan Sharif MD [address] [address] [place] [address] Cardiovascular Disease 05/14/22 Livan Sharif MD [address] [address] [place] 527445 Assigned Heart and Vascular Provider 06/12/22 07/23/22 Catherine Cm MD [address] [address] [place] 368565 Cardiovascular Disease 07/21/22 Valery Veronica, PA-C 909 [place], [place] 132655 Physician Principal Systems Architect Dermatology 07/21/22 Catherine Cm MD [address] [place] [address] [place] [address] Assigned Heart and Vascular Provider 07/24/22 11/05/22 Johnny Murillo MD [address] [place] [address] Assigned Musculoskeletal Provider 08/14/22 10/08/22 Brea Quinn APRN REGIONAL AIRLINE PILOT [address] [place] [address] 682085 Nurse Practitioner Dermatology 09/21/22 Brea Quinn APRN REGIONAL AIRLINE PILOT [address] [place] [address] Assigned Surgical Provider 10/09/22 05/01/24 [place] [address] [address] Assigned Musculoskeletal Provider 10/09/22 05/01/24 Livan Sharif MD [address] [place] [address] [place] [address] Assigned Heart and Vascular Provider 11/06/22 11/12/22 Catherine Cm MD [address] [place] [address] [place] [address] Assigned Heart and Vascular Provider 11/13/22 05/27/23 Sydnie Martinez RN Personal Advocate & Liaison (PAL) Family Medicine 03/28/23 07/31/23 Alfonso Renteria MD 5775 [facility] 200 [place] [address] Assigned Neuroscience Provider 04/02/23 09/29/24 Cheng Todd PA-C [address] [place] [address] Assigned PCP 04/30/23 07/15/23 Radha Lomeli APRN REGIONAL AIRLINE PILOT [address] [facility] [address] [place] [address] Assigned Heart and Vascular Provider 05/28/23 Jelena David OD [address] [facility] [place] [address] Ophthalmology 06/15/23 Pao Joseph RN Personal Advocate & Liaison (PAL) Nurse 08/01/23 11/07/23 Esha Grimm PA-C [address] [place] [address] Assigned PCP 07/16/23 Valrey Veronica PA-C [address] [place] [address] Physician Principal Systems Architect Dermatology 09/19/23 Rey Tay MD [address] [place] [address] 908065 Gastroenterology 09/20/23 Rcoky Zepeda DO [address] [place] [address] Physician Gastroenterology 09/20/23 Philip Dumont MD [address] [place] [address] Physician Ophthalmology 09/22/23 Meredith Carrera PA-C [address] [place] [address] Assigned Gastroenterology Provider 11/01/23 Neil Kent MD [address] [place] [address] 664770 MD Dermatology 11/02/23 [place] [address] [facility] [place] [address] Neurological Surgery 12/26/23 Audrey Waite PA-C [address] [place] [address] Physician Principal Systems Architect Dermatology 02/28/24 Valery Veronica PA-C [address]1971 [address] [place] [address] Physician Principal Systems Architect Dermatology 04/10/24 Herminia Hatch MD [address] [place] [address] [phone] Assigned Rheumatology Provider 07/02/24 Jelena David OD [address] [place] [address] [place] [address] Ophthalmology 08/30/24 [place] [address] [place] [address] Assigned Neuroscience Provider 09/30/24 Maru Man PA-C [address] [place] [address] Physician Principal Systems Architect Dermatology 10/03/24 Maru Man PA-C [address] [place] [address] Physician Principal Systems Architect Dermatology 10/22/24 Jelena David OD [facility] [place] [address] Assigned Surgical Provider 10/31/24 documented as of this encounter
--- OUTSIDE RECORDS SUMMARY | 2024-11-21 05:10 | XMS_ITS | Encounter Summary ---
Author Organization [facility] Address [address] [place] [address] Care Team Providers Care Collections And Archives Director Name Role Phone Lita Oseguera Unavailable Unavailable Marija Edgar APRN GOVERNMENT SERVICE EXECUTIVE Primary Care Provider + Marija Edgar APRN GOVERNMENT SERVICE EXECUTIVE Unavailable [phone] Keisha Dotson MD Unavailable [phone] Galo Burrell MD Unavailable Unavailable Diana Desir [facility] Unavailable Rain Galaviz PA-C Unavailable Summer Lara MD Unavailable [phone] Tavia Wyatt MD Unavailable Johnny Murillo MD Unavailable Erica Farrell APRN GOVERNMENT SERVICE EXECUTIVE Unavailable Tavia Wyatt MD Unavailable Diana Desir [facility] Unavailable Rich Barrett MD Unavailable [phone] Neil Kent MD Unavailable Roney Story DPM Unavailable Erica Farrell APRN GOVERNMENT SERVICE EXECUTIVE Unavailable Diana Desir [facility] Unavailable [phone] Jelena David OD Unavailable [phone] Galo Burrell MD Unavailable Unavailable HoLivan MD Unavailable Livan Sharif MD Unavailable IsCatherine hobbs MD Unavailable + Valery Veronica PA-C Unavailable [phone] Catherine Cm MD Unavailable + Johnny Murillo MD Unavailable [phone] Brea Quinn FOUNTAIN ATTENDANT GOVERNMENT SERVICE EXECUTIVE Unavailable [phone] Brea Quinn FOUNTAIN ATTENDANT GOVERNMENT SERVICE EXECUTIVE Unavailable [phone] Jose Francisco Johnson MD Unavailable Livan Sharif MD Unavailable + IsCatherine boothe MD Unavailable + Sydnie Martinez RN Unavailable Unavailable Alfonso Renteria MD Unavailable Esha Grimm PA-C Primary Care Provider Cheng Todd PA-C Unavailable Radha Lomeli FOUNTAIN ATTENDANT GOVERNMENT SERVICE EXECUTIVE Unavailable [phone] Jelena David OD Unavailable Pao Joseph RN Unavailable Unavailable Esha Grimm PA-C Unavailable [phone] Valery Veronica PA-C Unavailable [phone] Rey Tay MD Unavailable Rocky Zepeda DO Unavailable Philip Dumont MD Unavailable [phone] Meredith Carrera PA-C Unavailable [phone] Neil Kent MD Unavailable Juan Pablo Emmanuel MD Unavailable [phone] Audrey Waite-C Unavailable [phone] Valery VeronicaC Unavailable [phone] Herminia Hatch MD Unavailable Jelena David OD Unavailable [phone] Juan Pablo Emmanuel MD Unavailable [phone] Maru Man PA-C Unavailable [phone] Maru Man PA-C Unavailable [phone] Jelena David OD Unavailable [phone] Encounter Details Date Type Department Care Team (Late st Contact Info) Description 12/03/2021 [facility] [address] [address] Debbie Hdez MA Social History [...] How often do you attend denominational or uatsdin serv ices? Never 09/22/2021 Do [...] Answer Date Recorded PHQ-2 Score 2 09/22/2021 [facility] [...] in a penitentiary (including now)? No 09/22/2021 Balfour Depression Scale Answer Date Recorded Balfour Depression Score 5 01/14/2021 Last EPDS Self Harm Result Not on file 01/14 Education Answer Date Recorded What is the highest level of school you have completed or the highest degree you have received? 12th grade 08/07/2020 Comments No Sex and Gender Information Value Date Recorded Sex Assigned at Female 03/02/2021 5:45 PM CDT Legal Sex Female 4:13 AM GAS MASK INSPECTOR Gender Identity Female 03/02/2021 5:45 PM [...] Description 11/21/2024 7:00 AM CDT Office Visit [facility] [address] [address] Maru Man PA-C [address] [address] 12/20/2024 2:30 PM CDT Office Visit [address] [phone] Esha Grimm PA-C [address] [place] [address] 04/16/2025 11:00 AM CDT Virtual Visit [facility] [address] [place] [phone] Meredith Carrera PA-C [address] [place] [address] documented as of this encounter Visit Diagnoses Not on filedocumented in this encounter Additional Health Concerns Infection Onset Date Last Indicated Resolved Time Rule Out COVID-19 12/18/2021 12/18/2021 12/19/2021 11:34 AM CDT Rule Out COVID-19 02/24/2022 02/24/2022 02/25/2022 1:08 PM CDT Rule Out COVID-19 04/26/2022 04/26/2022 04/26/2022 6:47 AM CDT Rule Out COVID-19 05/17/2022 05/17/2022 05/17/2022 10:20 PM GAS MASK INSPECTOR Rule Out COVID-19 06/09/2022 06/09/2022 06/09/2022 9:35 AM GAS MASK INSPECTOR COVID-19 06/09/2022 06/09/2022 06/30/2022 11:4 1 PM GAS MASK INSPECTOR Rule Out COVID-19 11/10/2022 11/10/2022 11/11/2022 [...] documented as of this encounter Care Teams Collections And Archives Director Relationship Specialty Start Date End Date Marija Edgar APRN GOVERNMENT SERVICE EXECUTIVE PCP - General Nurse Practitioner 04/30/20 04/14/23 Esha Grimm PA-C [address] [place] [phone] PCP - General Family Medicine 05/04/23 Lita Oseguera Personal Advocate & Liaison (PAL) 02/28/20 03/27/23 Marija Edgar APRN GOVERNMENT SERVICE EXECUTIVE Assigned PCP 06/08/20 04/29/23 Keisha Dotson MD 909 [place], [place] [phone] Assigned Neuroscience Provider 06/04/20 04/01/23 Galo Burrell MD Assigned Heart and Vascular Provider 10/05/20 04/02/22 [facility] [address] [place] [address] Pharmacist Pharmacist 04/17/21 Rain Galaviz PA-C [address] [place] [address] [place] [address] Physician Associate Software Application Engineer Dermatology 04/28/21 Summer Lara MD [address] [place] [address] Assigned OBGYN Provider 05/31/21 2 Tavia Wyatt MD [address] [place] [address] Dermatology 07/14/21 Johnny Murillo MD [address] [facility] [address] [place] [address] Assigned Musculoskeletal Provider 08/30/21 03/17/22 Erica Farrell APRN GOVERNMENT SERVICE EXECUTIVE 6405 [facility] [address] [place] [address] Nurse Practitioner Cardiovascular Disease 09/09/21 Tavia Wyatt MD [address] [place] [address] Assigned Surgical Provider 11/29/21 05/07/22 [facility] 3033 [place] [address] Assigned MTM Pharmacist 01/02/22 Rich Barrett MD 3033 [place] [address] Physician Ophthalmology 01/21/22 Neil Kent MD 500 [place] [address] Dermatology 02/24/22 Roney Story DPM [address] [address] Assigned Musculoskeletal Provider 03/20/22 08/13/22 Erica Farrell APRN CNP 1700 [place] [address] Assigned Heart and Vascular Provider 04/03/22 04/16/22 [facility] 3033 [place] [address] Assigned MTM Pharmacist 04/07/22 Jelena David OD [address] [place] [address] Assigned Surgical Provider 05/08/22 10/08/22 Galo Burrell MD Assigned Heart and Vascular Provider 04/17/22 06/11/22 Livan Sharif MD [address] [place], [place] [address] Cardiovascular Disease 05/14/22 Livan Sharif MD [address] [place] [address] Assigned Heart and Vascular Provider 06/12/22 07/23/22 Catherine Cm MD [address] [place] 458335 Cardiovascular Disease 07/21/22 Valery Veronica, PAUcheC 909 [place], [place] 719655 Physician Associate Software Application Engineer Dermatology 07/21/22 Catherine Cm MD [address] [address] [place] [address] Assigned Heart and Vascular Provider 07/24/22 11/05/22 Johnny Murillo MD [address] [place] [address] 420874 Assigned Musculoskeletal Provider 08/14/22 10/08/22 Brea Quinn APRN GOVERNMENT SERVICE EXECUTIVE [address] [place] [address] 944875 Nurse Practitioner Dermatology 09/21/22 Brea Quinn APRN GOVERNMENT SERVICE EXECUTIVE [address] [place] [address] [place] [address] Assigned Surgical Provider 10/09/22 05/01/24 [place] [address] RA[address] [place] [address] Assigned Musculoskeletal Provider 10/09/22 05/01/24 Livan Sharif MD [address] [address] [place] [address] Assigned Heart and Vascular Provider 11/06/22 11/12/22 Catherine Cm MD [address] [address] [place] [address] Assigned Heart and Vascular Provider 11/13/22 05/27/23 Sydnie Martinez RN Personal Advocate & Liaison (PAL) Family Medicine 03/28/23 07/31/23 Alfonso Renteria MD 5775 [facility] [address] 200 [place] [address] Assigned Neuroscience Provider 04/02/23 09/29/24 Cheng Todd PA-C [address] [place] [address] [phone] Assigned PCP 04/30/23 07/15/23 Radha Lomeli APRN GOVERNMENT SERVICE EXECUTIVE 6405 [facility] [address] [place], [place] 150645 Assigned Heart and Vascular Provider 05/28/23 Jelena David OD [address] [place] [address] Ophthalmology 06/15/23 Pao Joseph, RN Personal Advocate & Liaison (PAL) Nurse 08/01/23 11/07/23 Esha Grimm PA-C [address] [place] [phone] Assigned PCP 07/16/23 Valery Veronica PA-C [address] [place] [address] 211525 Physician Associate Software Application Engineer Dermatology 09/19/23 Rey Tay MD [address] [place] [address] 891665 Gastroenterology 09/20/23 Rocky Zepeda DO [address] [place] [address] [phone] Physician Gastroenterology 09/20/23 Philip Dumont MD 516 [place], [place] 704475 Physician Ophthalmology 09/22/23 Meredith Carrera PA-C [address] [place] [address] 961375 Assigned Gastroenterology Provider 11/01/23 Neil Kent MD [address] 038550 MD Dermatology 11/02/23 [place] [address] [place], [place] 553[address] Neurological Surgery 12/26/23 Audrey Waite PA-C 500 [place], [place] [address] Physician Associate Software Application Engineer Dermatology 02/28/24 Valery Veronica PA-C 929776 [address] [address] Physician Associate Software Application Engineer Dermatology 04/10/24 Herminia Hatch MD [facility]5 [place], [place] [phone] Assigned Rheumatology Provider 07/02/24 [place] [address] [place] [address] [place] [address] Ophthalmology 08/30/24 [place] [address] [place] [address] Assigned Neuroscience Provider 09/30/24 Maru Man PA-C [address] [place] [address] Physician Associate Software Application Engineer Dermatology 10/03/24 Maru Man PA-C [address] [place] [address] Physician Associate Software Application Engineer Dermatology 10/22/24 Jelena Davdi OD [address] [facility] [place] [address] Assigned Surgical Provider 10/31/24 documented as of this encounter
--- OUTSIDE RECORDS SUMMARY | 2024-11-21 05:10 | XMS_ITS | Encounter Summary ---
Author Organization [facility] Address [address] [place] [address] Care Team Providers Care Aircraft Engine Installer Name Role Phone Lita Oseguera Unavailable Unavailable Marija Edgar APRN ROUTING CLERK Primary Care Provider + Chanelle Mccann APRN CNM Unavailab le Kyara De La Fuente RN Unavailable [phone] Marija Edgar APRN ROUTING CLERK Unavailable Mynor Broussard MD Unavailable [phone] Keisha Dotson MD Unavailable [phone] Stacey Briones MOLD BURNER Unavailable [phone] Lesley Guillermo CHW Unavailable Mary Mejia Unavailable Unavailable Lita Oseguera Unavailable Unavailable Galo Burrell MD Unavailable Unavailable Cristina Wood Unavailable Lesley Guillermo CHW Unavailable Meredith Bedoya Unavailable Unavailable Cristina Wood Unavailable Diana Desir [facility] Unavailable [phone] Rain Galaviz PA-C Unavailable Summer Lara MD Unavailable [phone] Summer Lara MD Unavailable [phone] Summer Lara MD Unavailable [phone] Tavia Wyatt MD Unavailable [phone] Johnny Murillo MD Unavailable [phone] Erica Farrell DRY FOOD PRODUCTS MIXER ROUTING CLERK Unavailable Vikas Teresitakaren Watson [facility] Unavailable Tavia Wyatt MD Unavailable [phone] Diana Desir [facility] Unavailable [phone] Rich Barrett MD Unavailable Neil Kent MD Unavailable Roney StoryM Unavailable Erica Farerll [employer] FOOD PRODUCTS MIXER ROUTING CLERK Unavailable Diana Desir [facility] Unavailable [phone] Jelena David OD Unavailable Galo Burrell MD Unavailable Unavailable Livan Sharif MD Unavailable Livan Sharif MD Unavailable Catherine Cm MD Unavailable + Valery Veronica PA-C Unavailable [phone] Catherine Cm MD Unavailable + Johnny Murillo MD Unavailable +[phone] Brea Quinn APRN ROUTING CLERK Unavailable [phone] Brea Quinn APRN ROUTING CLERK Unavailable [phone] Jose Francisco Johnson MD Unavailable Livan Sharif MD Unavailable + Catherine Cm MD Unavailable + Sydnie Martinez RN Unavailable Unavailable Alfonso Renteria MD Unavailable [phone] Esha Grimm PA-C Primary Care Provider Cheng Todd PA-C Unavailable Armani Radha Sia JACOBS CNP Unavailable Jelena David OD Unavailable Pao Joseph RN Unavailable Unavailable Esha Grimm PA-C Unavailable [phone] Valery Veronica PA-C Unavailable Rey Tay [...] Team (Late st Contact Info) Description 09/02/2020 [facility] Care Coordination [facility] [address] [place] [phone] Mary Mejia Social History Tobacco Use Types [...] Date Recorded PHQ-2 Score 0 08/12/2020 [facility]at [facility] [...] CDT Legal Sex Female 4:13 AM SUPERVISOR FINISHING Gender Identity Female 03/02/2021 5:45 PM CDT Sexual Orientation Straight 02/28/2020 12 :51 AM CDT COVID-19 Exposure Response Date Recorded In the last month, have you been in contact with someone who was confirmed or suspected to have Coronavirus / COVID-19? No / Unsure 09/05/2020 2:50 PM SUPERVISOR FINISHING documented as of this encounter Plan of Treatment Upcoming Encounters Date Type Department Care Team (Late st Contact Info) Description 11/21/2024 7:00 AM CDT Office Visit [facility] [address] [phone] Maru Man PA-C [address] [place] [address] 574660 12/20/2024 2:30 PM CDT Office Visit [facility] [address] [place] [phone] Esha Grimm PA-C [address] [place] [phone] 04/16/2025 11:00 AM CDT Virtual Visit [facility] [address] [phone] Meredith Carrera PA-C [address] [place] [address] documented as of this encounter Visit Diagnoses Not on filedocumented in this encounter Additional Health Concerns Infection Onset Date Last Indicated Resolved Time Rule Out COVID-19 09/24/2020 09/24/2020 09/24/2020 9:24 AM CDT Rule Out COVID-19 11/05/2020 11/05/2020 11/06/2020 1:09 PM CDT Rule Out COVID-19 05/11/2021 05/11/2021 05/13/2021 10:18 AM CDT Rule Out COVID-19 07/13/2021 07/13/2021 07/14/2021 3:04 PM SUPERVISOR FINISHING Rule Out COVID-19 07/18/2021 07/18/2021 07/20/2021 1:56 PM SUPERVISOR FINISHING COVID-19 07/18/2021 07/18/2021 08/08/2021 11:3 9 PM SUPERVISOR FINISHING Rule Out COVID-19 12/18/2021 12/18/2021 12/19/2021 11:34 AM CDT Rule Out COVID-19 02/24/2022 02/24/2022 02/25/2022 1:08 PM CDT Rule Out COVID-19 04/26/2022 04/26/2022 04/26/2022 6:47 AM CDT Rule Out COVID-19 05/17/2022 05/17/2022 05/17/2022 10:20 PM SUPERVISOR FINISHING Rule Out COVID-19 06/09/2022 06/09/2022 06/09/2022 9:35 AM SUPERVISOR FINISHING COVID-19 06/09/2022 06/09/2022 06/30/2022 11:4 1 PM SUPERVISOR FINISHING Rule Out COVID-19 11/10/2022 11/10/2022 11/11/2022 12:17 PM CDT Rule Out COVID-19 03/07/2023 03/07/2023 03/07/2023 1:20 PM CDT Rule Out COVID-19 12/26/2023 12/26/2023 12/26/2023 9:50 AM CDT Rule Out COVID-19 04/09/2024 04/09/2024 04/10/2024 6:48 PM CDT Rule Out COVID-19 10/04/2024 10/04/2024 10/05/2024 9:42 AM CDT Rule Out COVID-19 11/20/2024 11/20/2024 Assessment Noted Time PHQ-9 Depression Total Score: 9 06/25/20 20 7:04 AM SUPERVISOR FINISHING documented as of this encounter Care Teams Aircraft Engine Installer Relationship Specialty Start Date End Date Marija Edgar APRN ROUTING CLERK PCP - General Nurse Practitioner 04/30/20 04/14/23 Esha Grimm PA-C [address] [place] [phone] PCP - General Family Medicine 05/04/23 Lita Oseguera Personal Advocate & Liaison (PAL) 02/28/20 03/27/23 Chanelle Mccann APRN CNM [address] [place] [address], [facility] 200 [place] [address] Assigned OBGYN Provider 05/02/2005/09 Kyara De La Fuente, VJ Specialty Vice President Media Relations Neurology 06/04/20 03/05/21 Marija Edgar APRN ROUTING CLERK Assigned PCP 06/08/20 04/29/23 Mynor Broussard MD 6363 [facility] 500 [place], [place] 252775 Assigned Surgical Provider 06/01/20 11/28/21 Keisha Dotson MD 909 [place], [place] [phone] Assigned Neuroscience Provider 06/04/20 04/01/23 Stacey Briones, MOLD BURNER Lead Vice President Media Relations Primary Care - CC 08/11/2012/30 Lelsey Guillermo, W Community Health Worker 08/11/2010/01 Mary Mejia Financial Resource Worker 09/02/20 10/06/20 Lita Oseguera Personal Advocate & Liaison (PAL) Family Medicine 09/10/20 09/21/20 Galo Burrell MD Assigned Heart and Vascular Provider 10/05/20 04/02/22 Cristina Wood Financial Resource Worker 10/07/20 10/14/20 Lesley Guillermo, [facility] Community Health Worker 10/23/2012/30 Meredith Bedoya Financial Resource Worker 10/23/20 11/23/20 Cristina Wood Financial Resource Worker 02/09/21 02/09/21 Diana Desir, [facility] [address] [place], [place] 767286 Pharmacist Pharmacist 04/17/21 Rain Galaviz PA-C [address] [place] [address] [address] [place], [place] [phone] Physician Cottrell Blower Dermatology 04/28/21 Summer Lara MD [address] [place] [address] [phone] Assigned OBGYN Provider 05/10/2105/23 Summer Lara MD [address] [place] [address] [phone] Assigned OBGYN Provider 05/31/21 2 Summer Lara MD [address] [place] [address] [phone] Assigned OBGYN Provider 05/24/2105/30 Tavia Wyatt MD [address] [place] [address] Dermatology 07/14/21 Johnny Murillo MD [address] [place] [address] Assigned Musculoskeletal Provider 08/30/21 03/17/22 Erica Farrell APRN ROUTING CLERK 6405 [facility] [address] [place] [address] Nurse Practitioner Cardiovascular Disease 09/09/21 Teresita Bean [facility] 1440 [facility] [place], [place] [phone] Pharmacist Pharmacist 09/24/21 09/29/21 Tavia Wyatt MD [address] [place] [address] Assigned Surgical Provider 11/29/21 05/07/22 [facility] 3033 [place] [address] Assigned MTM Pharmacist 01/02/22 Rich Barrett MD [address] [place] [address] Physician Ophthalmology 01/21/22 Neil Kent MD 500 [place], [place] 955475 Dermatology 02/24/22 Roney Story DPM [address] [facility] 300 [place], [place] 489097 Assigned Musculoskeletal Provider 03/20/22 08/13/22 Erica Farrell APRN ROUTING CLERK 1700 [place] [address] Assigned Heart and Vascular Provider 04/03/22 04/16/22 [facility] 3033 [place] [address] Assigned MTM Pharmacist 04/07/22 Jelena David OD [address] [facility] [place] [place] [address] Assigned Surgical Provider 05/08/22 10/08/22 Galo Burrell MD Assigned Heart and Vascular Provider 04/17/22 06/11/22 Livan Sharif MD [address] [place] 8[address]885 Cardiovascular Disease 05/14/22 Livan Sharif MD [address] [place] [address] Assigned Heart and Vascular Provider 06/12/22 07/23/22 Catherine Cm MD [address] [place] 743095 Cardiovascular Disease 07/21/22 Valery Veronica PA-C 909 [place] [address] Physician Cottrell Blower Dermatology 07/21/22 Catherine Cm MD [address] [facility] [address] [place] [address] Assigned Heart and Vascular Provider 07/24/22 11/05/22 Johnny Murillo MD [address] 999964 Assigned Musculoskeletal Provider 08/14/22 10/08/22 Brea Quinn APRN ROUTING CLERK 500 [place], [place] 525935 Nurse Practitioner Dermatology 09/21/22 Brea Quinn APRN ROUTING CLERK [address] [place] [address] [place] 359722 Assigned Surgical Provider 10/09/22 05/01/24 [place] [address] [place] [address] Assigned Musculoskeletal Provider 10/09/22 05/01/24 Livan Sharif MD [address] [facility] [address] [place] [address] Assigned Heart and Vascular Provider 11/06/22 11/12/22 Catherine Cm MD [address] [place] [address] Assigned Heart and Vascular Provider 11/13/22 05/27/23 Sydnie Martinez RN Personal Advocate & Liaison (PAL) Family Medicine 03/28/23 07/31/23 Alfonso Renteria MD 5775 [facility] [address] 200 [place] [address] Assigned Neuroscience Provider 04/02/23 09/29/24 Cheng Todd PA-C [address] [place] [address] Assigned PCP 04/30/23 07/15/23 Radha Lomeli, ARLENE ROUTING CLERK 6405 [facility] [address] [place], [place] 0[address]15 Assigned Heart and Vascular Provider 05/28/23 Jelena David OD [address] [facility] [address] [place] [phone] Ophthalmology 06/15/23 Pao Joseph, VJ Personal Advocate & Liaison (PAL) Nurse 08/01/23 11/07/23 Esha Grimm PA-C [address] [place] [address] Assigned PCP 07/16/23 Valery Veronica PA-C [address] [place] [address] Physician Cottrell Blower Dermatology 09/19/23 Rey Tay MD [address] [place] [address] 110355 Gastroenterology 09/20/23 Rocky Zepeda DO [address] [place] [address] 380415 Physician Gastroenterology 09/20/23 Philip Dumont MD 516 [place] [address] Physician Ophthalmology 09/22/23 Meredith Carrera PA-C [address] [place] [address] Assigned Gastroenterology Provider 11/01/23 Neil Kent MD [address] 159840 MD Dermatology 11/02/23 [place] [address] [facility] [place] [address] Neurological Surgery 12/26/23 Audrey Waite PA-C 500 [place] [address] Physician Cottrell Blower Dermatology 02/28/24 Valery Veronica PA-C 806372 [address] [address] Physician Cottrell Blower Dermatology 04/10/24 Herminia Hatch MD [facility]5 [place], [place] [phone] Assigned Rheumatology Provider 07/02/24 Jelena David OD 3305 [facility] [place] [address] Ophthalmology 08/30/24 [place] [address] [place] [address] Assigned Neuroscience Provider 09/30/24 Maru Man PA-C [address] [place] [address] Physician Cottrell Blower Dermatology 10/03/24 Maru Man PA-C [address] [place] [address] Physician Cottrell Blower Dermatology 10/22/24 Jelena David OD [address] [facility] [place] [address] Assigned Surgical Provider 10/31/24 documented as of this encounter
--- OUTSIDE RECORDS SUMMARY | 2024-11-21 05:10 | XMS_ITS | Encounter Summary ---
Author Organization [facility] Address [address] [place] [address] Care Team Providers Care Broom Man Name Role Phone Lita Oseguera Unavailable Unavailable Marija Edgar APRN BARREL BUILDER Primary Care Provider + Marija Edgar APRN BARREL BUILDER Unavailable Keisha Dotson MD Unavailable [phone] Galo Burrell MD Unavailable Unavailable Diana Desir [facility] Unavailable [phone] Rain Galaviz PA-C Unavailable Summer Lara MD Unavailable [phone] Tavia Wyatt MD Unavailable Johnny Murillo MD Unavailable Erica Farrell APRN BARREL BUILDER Unavailable Tavia Wyatt MD Unavailable Diana Desir [facility] Unavailable Rich Barrett MD Unavailable [phone] Neil Kent MD Unavailable Roney Story DPM Unavailable Erica Farrell APRN BARREL BUILDER Unavailable Diana Desir [facility] Unavailable [phone] Jelena David OD Unavailable [phone] Galo Burrell MD Unavailable Unavailable HoLivan MD Unavailable Livan Sharif MD Unavailable IsCatherine hobbs MD Unavailable + Valery Veronica PA-C Unavailable [phone] Catherine Cm MD Unavailable + Johnny Murillo MD Unavailable [phone] Brea Quinn PUBLIC RELATIONS WRITER BARREL BUILDER Unavailable [phone] Brea Quinn PUBLIC RELATIONS WRITER BARREL BUILDER Unavailable [phone] Jose Francisco Johnson MD Unavailable Livan Sharif MD Unavailable + IsCatherine boothe MD Unavailable + Sydnie Martinez RN Unavailable Unavailable Alfonso Renteria MD Unavailable Esha Grimm PA-C Primary Care Provider Cheng Todd PA-C Unavailable Radha Lomeli PUBLIC RELATIONS WRITER BARREL BUILDER Unavailable [phone] Jelena David OD Unavailable Pao Joseph RN Unavailable Unavailable Esha Grimm PA-C Unavailable [phone] Valery Veronica PA-C Unavailable [phone] Rey Tay MD Unavailable Rocky Zepeda DO Unavailable Philip Dumont MD Unavailable [phone] Meredith Carrera PA-C Unavailable Neil Kent MD Unavailable Juan Pablo Emmanuel MD Unavailable [phone] Audrey Waite-C Unavailable [phone] Valery VeronicaC Unavailable [phone] Herminia Hatch MD Unavailable Jelena David OD Unavailable Juan Pablo Emmanuel MD Unavailable [phone] Maru Man PA-C Unavailable [phone] Maru Man PA-C Unavailable [phone] Jelena David OD Unavailable Encounter Details Date Type Department Care Team (Late st Contact Info) Description 03/09/2022 [facility] Medical Advice [address] [address] Abby Dye Social History Tobacco [...] How often do you attend advent or christian serv ices? Never 09/22/2021 Do [...] a nursing home (including now)? No 09/22/2021 [place] Depression Scale Answer Date Recorded [place] Depression Score 5 01/14/2021 Last EPDS Self Harm Result Not on file 01/14 Education Answer Date Recorded What is the highest level of school you have completed or the highest degree you have received? 12th grade 08/07/2020 Comments No Sex and Gender Information Value Date Recorded Sex Assigned at Female 03/02/2021 5:45 PM CDT Legal Sex Female 4:13 AM SPECIAL NEEDS CHILD CAREGIVER Gender Identity Female 03/02/2021 5:45 PM CDT [...] Description 11/21/2024 7:00 AM CDT Office Visit [facility] [address] [address] Maru Man PA-C [address] [address] 12/20/2024 2:30 PM CDT Office Visit [address] [phone] Esha Grimm PA-C [address] [place] [address] 04/16/2025 11:00 AM CDT Virtual Visit [facility] [address] 4th [place] [phone] Meredith Carrera PA-C [address] [place] [address] documented as of this encounter Visit Diagnoses Not on filedocumented in this encounter Additional Health Concerns Infection Onset Date Last Indicated Resolved Time Rule Out COVID-19 04/26/2022 04/26/2022 04/26/2022 6:47 AM CDT Rule Out COVID-19 05/17/2022 05/17/2022 05/17/2022 10:20 PM SPECIAL NEEDS CHILD CAREGIVER Rule Out COVID-19 06/09/2022 06/09/2022 06/09/2022 9:35 AM SPECIAL NEEDS CHILD CAREGIVER COVID-19 06/09/2022 06/09/2022 06/30/2022 11:4 1 PM SPECIAL NEEDS CHILD CAREGIVER Rule Out COVID-19 11/10/2022 11/10/2022 11/11/2022 12:17 [...] documented as of this encounter Care Teams Broom Man Relationship Specialty Start Date End Date Marija Edgar APRN BARREL BUILDER PCP - General Nurse Practitioner 04/30/20 04/14/23 Esha Grimm PA-C [address] [place] [phone] PCP - General Family Medicine 05/04/23 Lita Oseguera Personal Advocate & Liaison (PAL) 02/28/20 03/27/23 Marija Edgar APRN BARREL BUILDER Assigned PCP 06/08/20 04/29/23 Keisha Dotson MD [address] [place], [place] 632855 Assigned Neuroscience Provider 06/04/20 04/01/23 Galo Burrell MD Assigned Heart and Vascular Provider 10/05/20 04/02/22 Diana Desir, [facility] [address] [place] [address] Pharmacist Pharmacist 04/17/21 Rain Galaviz PA-C [address] [place] [address] [place] [address] Physician Box Estimator Dermatology 04/28/21 Summer Lara MD [address] [place] [address] Assigned OBGYN Provider 05/31/21 2 Tavia Wyatt MD [address] [place] [address] Dermatology 07/14/21 Johnny Murillo MD [address] [place] [address] Assigned Musculoskeletal Provider 08/30/21 03/17/22 Erica Farrell APRN BARREL BUILDER [address] [facility] [address] [place] [address] Nurse Practitioner Cardiovascular Disease 09/09/21 Tavia Wyatt MD [address] [place] [address] Assigned Surgical Provider 11/29/21 05/07/22 [facility] [address] [place] [address] Assigned MTM Pharmacist 01/02/22 Rich Barrett MD [address] [place] [address] Physician Ophthalmology 01/21/22 Neil Kent MD 500 [place] [address] Dermatology 02/24/22 Roney Story DPM 136[address] [facility] 300 [place], [place] 990887 Assigned Musculoskeletal Provider 03/20/22 08/13/22 Erica Farrell APRN BARREL BUILDER 1700 [place] [address] Assigned Heart and Vascular Provider 04/03/22 04/16/22 Diana Desir, [facility] [address] [place] [address] Assigned MTM Pharmacist 04/07/22 Jelena David OD [address] [place] [address] Assigned Surgical Provider 05/08/22 10/08/22 Galo Burrell MD Assigned Heart and Vascular Provider 04/17/22 06/11/22 Livan Sharif MD [address] [place] [address] Cardiovascular Disease 05/14/22 Livan Sharif MD [address] [place] 792515 Assigned Heart and Vascular Provider 06/12/22 07/23/22 Catherine Cm MD [address] [place] 347665 Cardiovascular Disease 07/21/22 Valery Veronica PA-C 909 [place], [place] 432355 Physician Box Estimator Dermatology 07/21/22 Catherine Cm MD [address] [place] 395335 Assigned Heart and Vascular Provider 07/24/22 11/05/22 Johnny Murillo MD [address] [address] Assigned Musculoskeletal Provider 08/14/22 10/08/22 Brea Quinn APRN BARREL BUILDER [address] [place] [address] Nurse Practitioner Dermatology 09/21/22 Brea Quinn APRN BARREL BUILDER [address] [place] [address] Assigned Surgical Provider 10/09/22 05/01/24 [place] [address] [facility] 300 [place] [address] Assigned Musculoskeletal Provider 10/09/22 05/01/24 Livan Sharif MD 6[address] [facility] [address] [place] [address] Assigned Heart and Vascular Provider 11/06/22 11/12/22 Catherine Cm MD 6405 [facility] [address] [place] [address] Assigned Heart and Vascular Provider 11/13/22 05/27/23 Sydnie Martinez, VJ Personal Advocate & Liaison (PAL) Family Medicine 03/28/23 07/31/23 Alfonso Renteria MD 5775 [facility] 200 [place], [place] 417936 Assigned Neuroscience Provider 04/02/23 09/29/24 Cheng Todd PA-C [address] [place] [address] Assigned PCP 04/30/23 07/15/23 Radha Lomeli APRN BARREL BUILDER 6405 [facility] [address] [place] [address] Assigned Heart and Vascular Provider 05/28/23 Jelena David OD [address] [place] [address] MD Ophthalmology 06/15/23 Pao Joseph, VJ Personal Advocate & Liaison (PAL) Nurse 08/01/23 11/07/23 Esha Grimm PA-C [address] [place] [address]83 Assigned PCP 07/16/23 Valery Veronica PA-C [address] [place] [address]605 Physician Box Estimator Dermatology 09/19/23 Rey Tay MD [address] [place] [address] 525375 Gastroenterology 09/20/23 Rocky Zepeda DO [address] [place] [address] 526195 Physician Gastroenterology 09/20/23 Philip Dumont MD [address] [place] [address] 218925 Physician Ophthalmology 09/22/23 Meredith Carrera PA-C [address] [place] [address] Assigned Gastroenterology Provider 11/01/23 Neil Kent MD [address] 381370 Dermatology 11/02/23 [place] [address] [facility] [place] [address] Neurological Surgery 12/26/23 Audrey Waite PA-C [address] [place] [address] Physician Box Estimator Dermatology 02/28/24 Valery Veronica PA-C [address] [place] [address] 119399 Physician Box Estimator Dermatology 04/10/24 Herminia Hatch MD [facility]5 [place], [place] 02358125 Assigned Rheumatology Provider 07/02/24 [place] [address] [place] [address] [place] [address] Ophthalmology 08/30/24 [place] [address] [place] [address] Assigned Neuroscience Provider 09/30/24 Maru Man PA-C [address] [place] [address] Physician Box Estimator Dermatology 10/03/24 Maru Man PA-C [address] [place] [address] Physician Box Estimator Dermatology 10/22/24 Jelena David OD [address] [place] [address] [place] [address] Assigned Surgical Provider 10/31/24 documented as of this encounter
--- OUTSIDE RECORDS SUMMARY | 2024-11-21 05:11 | XMS_ITS | Encounter Summary ---
Author Organization [facility] Address [address] [place] [address] Care Team Providers Care Ward Aide Name Role Phone Lita Oseguera Unavailable Unavailable Marija Edgar APRN COSMETIC SALES ASSISTANT Primary Care Provider + Marija Edgar APRN COSMETIC SALES ASSISTANT Unavailable [phone] Mynor Broussard MD Unavailable [phone] Keisha Dotson MD Unavailable [phone] Galo Burrell MD Unavailable Unavailable Diana Desir [facility] Unavailable Rain Galaviz PA-C Unavailable Summer Lara MD Unavailable [phone] Tavia Wyatt MD Unavailable Johnny Murillo MD Unavailable Erica Farrell APRN COSMETIC SALES ASSISTANT Unavailable Tavia Wyatt MD Unavailable Diana Desir [facility] Unavailable Rich Barrett MD Unavailable [phone] Neil Kent MD Unavailable Roney StoryM Unavailable Erica Farrell APRN COSMETIC SALES ASSISTANT Unavailable Diana Desir [facility] Unavailable Jelena David OD Unavailable Galo Burrell MD Unavailable Unavailable Livan Sharif MD Unavailable Livan Sharif MD Unavailable IsCatherine hobbs MD Unavailable + Valery Veronica PA-C Unavailable [phone] Catherine Cm MD Unavailable + Johnny Murillo MD Unavailable [phone] Brea Quinn PALLETISER OPERATOR COSMETIC SALES ASSISTANT Unavailable [phone] Brea Quinn PALLETISER OPERATOR COSMETIC SALES ASSISTANT Unavailable [phone] Jose Francisco Johnson MD Unavailable Livan Sharif MD Unavailable + IsCatherine hobbs MD Unavailable + Sydine Martinez RN Unavailable Unavailable Alfonso Renteria MD Unavailable Esha Grimm PA-C Primary Care Provider Cheng Todd PA-C Unavailable Radha Loemli PALLETISER OPERATOR COSMETIC SALES ASSISTANT Unavailable [phone] Jelena David OD Unavailable Pao Joseph RN Unavailable Unavailable Esha Grimm-C Unavailable [phone] Valery Veronica PA-C Unavailable [phone] Rey Tay MD Unavailable Rocky Zepeda DO Unavailable Philip Dumont MD Unavailable Byron Carreranahed Troncoso PA-C Unavailable [phone] Neil Kent MD Unavailable Juan Pablo Emmanuel MD Unavailable [phone] Audrey Waite PA-C Unavailable [phone] Valery Veronica PA-C Unavailable [phone] Herminia Hatch MD Unavailable Jelena David OD Unavailable Juan Pablo Emmanuel MD Unavailable [phone] Maru Man-C Unavailable [phone] Maru Man-C Unavailable [phone] Jelena David OD Unavailable Encounter Details Date Type Department Care Team (Late st Contact Info) Description 10/17/2021 [facility] Medical Advice [address] [address] Diana Desir, [place] [address]283 [place] [address] Social History Tobacco Use Types Packs/Day Years [...] How often do you attend latter-day or zoroastrian serv ices? Never 09/22/2021 Do [...] 09/22/2021 [facility] [...] in a detention (including now)? No 09/22/2021 [place] Depression Scale Answer Date Recorded [place] Depression Score 5 01/14/2021 Last EPDS Self Harm Result Not on file 01/14 Education Answer Date Recorded What is the highest level of school you have completed or the highest degree you have received? 12th grade 08/07/2020 Comments No Sex and Gender Information Value Date Recorded Sex Assigned at Female 03/02/2021 5:45 PM CDT Legal Sex Female 4:13 AM GUNSTOCK SPRAY UNIT FEEDER Gender Identity Female 03/02/2021 5:45 PM [...] Upcoming Encounters Date Type Department Care Team ([facility] st Contact Info) Description 11/21/2024 7:00 AM CDT Office Visit [facility] [address] [address] Maru Man PA-C [address] [address] 12/20/2024 2:30 PM CDT Office Visit [facility] [address] [place] [address] Esha Grimm PA-C [address] [place] [address] 04/16/2025 11:00 AM CDT Virtual Visit [facility] [address] 4th [place] [phone] Meredith Carrera PA-C [address] [place] [address] documented as of this encounter Visit Diagnoses Not on filedocumented in this encounter Additional Health Concerns Infection Onset Date Last Indicated Resolved Time Rule Out COVID-19 12/18/2021 12/18/2021 12/19/2021 11:34 AM CDT Rule Out COVID-19 02/24/2022 02/24/2022 02/25/2022 1:08 PM CDT Rule Out COVID-19 04/26/2022 04/26/2022 04/26/2022 6:47 AM CDT Rule Out COVID-19 05/17/2022 05/17/2022 05/17/2022 10:20 PM GUNSTOCK SPRAY UNIT FEEDER Rule Out COVID-19 06/09/2022 06/09/2022 06/09/2022 9:35 AM GUNSTOCK SPRAY UNIT FEEDER COVID-19 06/09/2022 06/09/2022 06/30/2022 11:4 1 PM GUNSTOCK SPRAY UNIT FEEDER Rule Out COVID-19 11/10/2022 11/10/2022 11/11/2022 [...] documented as of this encounter Care Teams Ward Aide Relationship Specialty Start Date End Date Marija Edgar APRN COSMETIC SALES ASSISTANT PCP - General Nurse Practitioner 04/30/20 04/14/23 Esha Grimm PA-C [address] [place] [phone] PCP - General Family Medicine 05/04/23 Lita Oseguera Personal Advocate & Liaison (PAL) 02/28/20 03/27/23 Marija Edgar APRN COSMETIC SALES ASSISTANT Assigned PCP 06/08/20 04/29/23 Mynor Broussard MD [address] 235[address] Assigned Surgical Provider 06/01/20 11/28/21 Keisha Dotson MD 909 [place], [place] 996355 Assigned Neuroscience Provider 06/04/20 04/01/23 Galo Burrell MD Assigned Heart and Vascular Provider 10/05/20 04/02/22 Diana Desir, [facility] 3033 [place] [address] Pharmacist Pharmacist 04/17/21 Rain Galaviz PA-C [address] [place] [address] [place] [address] Physician Info Specialist Dermatology 04/28/21 Summer Lara MD [address] [place] [address] Assigned OBGYN Provider 05/31/21 Tavia Wyatt MD [address] [place] [address] Dermatology 07/14/21 Johnny Murillo MD [facility] [address] [facility] [address] [place] [address] Assigned Musculoskeletal Provider 08/30/21 03/17/22 Erica Farrell APRN COSMETIC SALES ASSISTANT 6405 [facility] [address] [place] [address] Nurse Practitioner Cardiovascular Disease 09/09/21 Tavia Wyatt MD [address] [place], [place] 481700 Assigned Surgical Provider 11/29/21 05/07/22 Diana Desir, [facility] 3033 [place] [address] Assigned MTM Pharmacist 01/02/22 Rich Barrett MD 3033 [place] [address] Physician Ophthalmology 01/21/22 Neil Kent MD 500 [place] [address] Dermatology 02/24/22 Roney Story DPM [address] [facility] [address] [place] [address] Assigned Musculoskeletal Provider 03/20/22 08/13/22 Erica Farrell APRN COSMETIC SALES ASSISTANT 1700 [place] [address] Assigned Heart and Vascular Provider 04/03/22 04/16/22 [facility] [address] [place] [address] Assigned MTM Pharmacist 04/07/22 [place] [address] [place] [address] [place] [address] Assigned Surgical Provider 05/08/22 10/08/22 Galo Burrell MD Assigned Heart and Vascular Provider 04/17/22 06/11/22 Livan Sharif MD [address] [place] [address] Cardiovascular Disease 05/14/22 Livan Sharif MD [address] [place] 427875 Assigned Heart and Vascular Provider 06/12/22 07/23/22 Catherine Cm MD [address] [facility]00 [place] [address] Cardiovascular Disease 07/21/22 Valery Veronica, PAUcheC [address] [place] [address] 080405 Physician Info Specialist Dermatology 07/21/22 Catherine Cm MD [address] [place] 9696300 [place] 901285 Assigned Heart and Vascular Provider 07/24/22 11/05/22 Johnny Murillo MD [address] [place] [address] Assigned Musculoskeletal Provider 08/14/22 10/08/22 Brea Quinn APRN COSMETIC SALES ASSISTANT [address] [place] [address] 586835 Nurse Practitioner Dermatology 09/21/22 Brea Quinn APRN COSMETIC SALES ASSISTANT [address] [place] [address] [place] [address] Assigned Surgical Provider 10/09/22 05/01/24 [place] [address] [place] [address] 796867 Assigned Musculoskeletal Provider 10/09/22 05/01/24 Livan Sharif MD [address] [facility]00 [place] 076295 Assigned Heart and Vascular Provider 11/06/22 11/12/22 Catherine Cm MD [address] [facility] [address] [place] [address] Assigned Heart and Vascular Provider 11/13/22 05/27/23 Sydnie Martinez RN Personal Advocate & Liaison (PAL) Family Medicine 03/28/23 07/31/23 Alfonso Renteria MD 5775 [facility] 200 [place] [address] Assigned Neuroscience Provider 04/02/23 09/29/24 Cheng Todd PA-C [address] [place] [address] [id number] Assigned PCP 04/30/23 07/15/23 Radha Lomeli APRN COSMETIC SALES ASSISTANT [address] [place] [address] Assigned Heart and Vascular Provider 05/28/23 Jelena David OD [address] [place] [address] Ophthalmology 06/15/23 Pao Joseph RN Personal Advocate & Liaison (PAL) Nurse 08/01/23 11/07/23 Esha Grimm PA-C [address] [place] [address] Assigned PCP 07/16/23 Valery Veronica PA-C [address] [place] [address] Physician Info Specialist Dermatology 09/19/23 Rey Tay MD [address] [place] [address] MD Gastroenterology 09/20/23 Rocky Zepeda DO [address] [place] [address] Physician Gastroenterology 09/20/23 Philip Dumont MD [address] [place] [address] Physician Ophthalmology 09/22/23 Meredith Carrera PA-C [address] [place] [address] Assigned Gastroenterology Provider 11/01/23 Neil Kent MD [address] [address] Dermatology 11/02/23 [place] [address] [place] [address] Neurological Surgery 12/26/23 Audrey Waite PA-C [address] [place] [address] Physician Info Specialist Dermatology 02/28/24 Valery Veronica PA-C [id number] [address] [place] [address] Physician Info Specialist Dermatology 04/10/24 Herminia Hatch MD [facility]5 [place], [place] 68[address] Assigned Rheumatology Provider 07/02/24 Jelena David OD [facility] [place] [address] Ophthalmology 08/30/24 [place] [address] [place] [address] Assigned Neuroscience Provider 09/30/24 Maru Man PA-C [address] [place] [address] Physician Info Specialist Dermatology 10/03/24 Maru Man PA-C [address] [place] [address] Physician Info Specialist Dermatology 10/22/24 Jelena David OD [address] [place] [address] [place] [address] Assigned Surgical Provider 10/31/24 documented as of this encounter
--- OUTSIDE RECORDS SUMMARY | 2024-11-21 05:11 | XMS_ITS | Encounter Summary ---
Author Organization [place] Address [address] [place] [address] 47[address] Care Team Providers Care Plate Painter Apprentice Name Role Phone Marija Edgar ARLENE TECHNICIAN TELECOMMUNICATION SYSTEMS Unavailable Diana Desir [facility] Unavailable [phone] Rain Galaviz PA-C Unavailable Tavia Wyatt MD Unavailable Erica Farrell APRN TECHNICIAN [employer]LECOMMUNICATION SYSTEMS Unavailable Rich Barrett MD Unavailable [phone] Neil Kent MD Unavailable Diana Desir [facility] Unavailable [phone] Livan Sharif MD Unavailable Catherine Cm MD Unavailable + Valery Veronica PA-C Unavailable Brea Quinn APRN TECHNICIAN TELECOMMUNICATION SYSTEMS Unavailable Brea Quinn APRN TECHNICIAN [employer]LECOMMUNICATION SYSTEMS Unavailable Jose Francisco Johnson MD Unavailable Catherine Cm MD Unavailable + Sydnie Martinez RN Unavailable Unavailable Alfonso Renteria MD Unavailable [phone] Esha Grimm PA-C Primary Care Provider Cheng Todd PA-C Unavailable Radha Lomeli APRN TECHNICIAN [employer]COMMUNICATION SYSTEMS Unavailable Jelena David OD Unavailable Pao Joseph RN Unavailable Unavailable Esha Grimm PA-C Unavailable [phone] Valery Veronica PA-C Unavailable Rey Tay [...] Contact Info) Description 04/18/2023 [facility] [address] [place] [address] Mary Calvo Social History Tobacco [...] often do you attend [facility] or [facility] services? 1 to 4 [...] Answer Date Recorded PHQ-2 Score 0 03/10/2023 [facility] of Occupat ional Health - Occupational Stress [...] exercise at this level? 30 min 03/10/2023 [place] Depression Scale Answer Date Recorded [place] Depression Score 5 01/14/2021 Last EPDS Self [...] CDT Legal Sex Female 4:13 AM CHIEF II DISPATCHER Gender Identity Female 03/02/2021 5:45 PM CDT [...] Visit [facility] [address] [phone] Maru Man PA-C [address] [address] 12/20/2024 2:30 PM CDT Office Visit [facility] [address] [place] [phone] Esha Grimm PA-C [id number] [place] [address] 04/16/2025 11:00 AM CDT Virtual Visit [facility] [address] [phone] Meredith Carrera PA-C [address] [place] [address] documented as of this encounter Visit Diagnoses [...] as of this encounter Care Teams Plate Painter Apprentice Relationship Specialty Start Date End Date Esha Grimm PA-C [address] [place] [phone] PCP - General Family Medicine 05/04/23 Marija Edgar APRN TECHNICIAN TELECOMMUNICATION SYSTEMS Assigned PCP 06/08/20 04/29/23 Diana Desir, [facility] [address] [place], [place] 0389[address] Pharmacist Pharmacist 04/17/21 Rain Galaviz PA-C [address] [place] [address] [address] RA[address] [place] [address] Physician Optimization Consultant Dermatology 04/28/21 Tavia Wyatt MD [address] [place] [address] [address] [place] [address] Dermatology 07/14/21 Erica Farrell APRN TECHNICIAN [employer] [address] [place] [address] Nurse Practitioner Cardiovascular Disease 09/09/21 Rich Barrett MD [address] [place] 184785 Physician Ophthalmology 01/21/22 Neil Kent MD 500 [place] [address] Dermatology 02/24/22 Diana Desir, [facility] [address] [place], [place] 414476 Assigned MTM Pharmacist 04/07/22 Livan Sharif MD [address] [place] [id number] Cardiovascular Disease 05/14/22 Catherine Cm MD [address] [place] 385145 Cardiovascular Disease 07/21/22 Valery Veronica, PAUcheC [address] [place] [address] 407495 Physician Optimization Consultant Dermatology 07/21/22 Brea Quinn APRN TECHNICIAN TE[employer]COMMUNICATION SYSTEM[employer] [address] [place] [address] 345575 Nurse Practitioner Dermatology 09/21/22 Brea Quinn APRN TECHNICIAN [employer]COMM[employer] [address] [place] [address] 908012 Assigned Surgical Provider 10/09/22 05/01/24 [place] [address] RAZO [address] [place] [address] 014857 Assigned Musculoskeletal Provider 10/09/22 05/01/24 Catherine Cm MD [address] [place] [id number] Assigned Heart and Vascular Provider 11/13/22 05/27/23 Sydnie Martinez, RN Personal Advocate & Liaison (PAL) Family Medicine 03/28/23 07/31/23 Alfonso Renteria MD [address] [facility] [address] [place] [address] Assigned Neuroscience Provider 04/02/23 09/29/24 Cheng Todd PA-C [address] [place] [address] Assigned PCP 04/30/23 07/15/23 Radha Lomeli APRN TECHNICIAN TELECOMMUNICATION SYSTEMS [address] [facility] [address] [place], [place] 270945 Assigned Heart and Vascular Provider 05/28/23 Jelena David OD [address] [facility] [place] [address] Ophthalmology 06/15/23 Pao Joseph, VJ Personal Advocate & Liaison (PAL) Nurse 08/01/23 11/07/23 Esha Grimm PA-C [address] [place] [phone] Assigned PCP 07/16/23 Valery Veronica PA-C 9 [place], [place] 355625 Physician Optimization Consultant Dermatology 09/19/23 Rey Tay MD 909 [place], [place] 615175 Gastroenterology 09/20/23 Rocky Zepeda DO [address] [place] [address] Physician Gastroenterology 09/20/23 Philip Dumont MD [address] [place] [address] Physician Ophthalmology 09/22/23 Meredith Carrera PA-C [address] [place] [address] Assigned Gastroenterology Provider 11/01/23 Neil Kent MD [address] [address] MD Dermatology 11/02/23 [place] [address] [place] [address] Neurological Surgery 12/26/23 Audrey Waite PA-C [address] [place] [address] Physician Optimization Consultant Dermatology 02/28/24 Valery Veronica PA-C [address] [place] [address] Physician Optimization Consultant Dermatology 04/10/24 Herminia Hatch MD [address] [place] [address] [phone] Assigned Rheumatology Provider 07/02/24 Jelena David OD [address] [place] [address] [place] [address] Ophthalmology 08/30/24 [place] [address] [address] [place] [address] Assigned Neuroscience Provider 09/30/24 Maru Man PA-C [address] [place] [address] Physician Optimization Consultant Dermatology 10/03/24 Maru Man PA-C [address] [place] [address] Physician Optimization Consultant Dermatology 10/22/24 Jelena David OD [address] [facility] [place] [address] Assigned Surgical Provider 10/31/24 documented as of this encounter
--- OUTSIDE RECORDS SUMMARY | 2024-11-21 05:11 | XMS_ITS | Encounter Summary ---
Author Organization [place] Address [address] [place] [address] Care Team Providers Care Building Maintenance Supervisor Name Role Phone Lita Oseguera Unavailable Unavailable Marija Edgar APRN [facility] Primary Care Provider + Marija Edgar APRN [facility] Unavailable [phone] Mynor Broussard MD Unavailable [phone] Keisha Dotson MD Unavailable Galo Burrell MD Unavailable Unavailable Diana Desir [facility] Unavailable [phone] Rain Galaviz PA-C Unavailable Summer Lara MD Unavailable [phone] Tavia Wyatt MD Unavailable Johnny Murillo MD Unavailable [phone] Erica Farrell APRN [facility] Unavailable Tavia Wyatt MD Unavailable Diana Desir [facility] Unavailable Rich Barrett MD Unavailable [phone] Neil Kent MD Unavailable Roney StoryM Unavailable Erica Farrell APRN [facility] Unavailable Diana Desir [facility] Unavailable Jelena David OD Unavailable Galo Burrell MD Unavailable Unavailable Livan Sharif MD Unavailable Livan Sharif MD Unavailable IsCatherine hobbs MD Unavailable + Valery Veronica PA-C Unavailable [phone] Catherine Cm MD Unavailable + Johnny Murillo MD Unavailable [phone] Brea Quinn SHIFT MGR [facility] Unavailable [phone] Brea Quinn SHIFT MGR [facility] Unavailable [phone] Jose Francisco Johnson MD Unavailable Livan Sharif MD Unavailable + IsCatherine hobbs MD Unavailable + Sydnie Martinez RN Unavailable Unavailable Alfonso Renteria MD Unavailable Esha Grimm PA-C Primary Care Provider Cheng Todd PA-C Unavailable Radha Lomeli SHIFT MGR [facility] Unavailable [phone] Jelena David OD Unavailable Pao Joseph RN Unavailable Unavailable Esha Grimm-C Unavailable [phone] Valery Veronica PA-C Unavailable [phone] Rey Tay MD Unavailable Rocky Zepeda DO Unavailable Philip Dumont MD Unavailable Byron Carreranahed Troncoso PA-C Unavailable [phone] Neil Kent MD Unavailable Juan Pablo Emmanuel MD Unavailable [phone] Audrey Waite PA-C Unavailable [phone] Valery Veronica PA-C Unavailable Herminia Hatch MD Unavailable Jelena David OD Unavailable Juan Pablo Emmanuel MD Unavailable Maru ManC Unavailable [phone] Maru ManC Unavailable [phone] Jelena David OD Unavailable Reason for Visit * Reason Onset Date Comments Refill Request 10/31/2021 sertraline Encounter Details Date Type Department Care Team (Late st Contact Info) Description 10/31/[address] [address] Marija Edgar APRN [facility] [address] [facility] [place] [address] Refill Request (sertraline) Social History Tobacco [...] often do you attend denominational or catholic serv ices? Never 09/22/2021 Do [...] Answer Date Recorded PHQ-2 Score 2 09/22/2021 [facility] [place] of Occupat ional Health - Occupational Stress [...] in a long-term (including now)? No 09/22/2021 [place] Depression Scale Answer Date Recorded [place] Depression Score 5 01/14/2021 Last EPDS Self Harm Result Not on file 01/14 Education Answer Date Recorded What is the highest level of school you have completed or the highest degree you have received? 12th grade 08/07/2020 Comments No Sex and Gender Information Value Date Recorded Sex Assigned at Female 03/02/2021 5:45 PM CDT Legal Sex Female 4:13 AM PLANNER Gender Identity Female 03/02/2021 5:45 PM CDT Sexual Orientation Straight 02/28/2020 12 :51 AM CDT COVID-19 Exposure Response Date Recorded In the last 10 days, have yo u been in contact with someone who was confirmed or suspected to have Coronavirus/COVID-19? No / Unsure 10/30/2021 10:32 AM CDT documented as of this encounter Miscellaneous Notes * Telephone Encounter - Diana Dseir, [facility] - 11/02/2021 8:58 AM CDT Approved per [place] CPA. Diana Desir PharmD Medication Therapy Management Provider, [facility] Pager: [phone] * Telephone Encounter - Aleyda Scott RN [...] Pt has follow up tomorrow with [facility] pharmacist to continue to work on taper. Appointments in Next Year Nov 03, 2021 3:30 PM Pharmacist Visit with Diana Desir RPH [facility] ([facility] ) [phone] Informed patient that will route refill request to Diana Desir. Pt verbalized understanding and is in agreement of plan. Aleyda Alvaerz RN * Telephone Encounter - Amalia Deluca - 10/31/2021 10:31 AM CDTSummary: MEDICATION REQUEST FROM PHARM Reason for Call: Other prescription Detailed comments: PHARM SAYS- PT IS TAPERING OFF OF SERTALINE BUT IS CURRENTLY OUT OF TABS AND LOOKS LIKE CLINIC CANCELLED REMAIN REFILLS YESTERDAY, CALLING TO REQUEST GET REST OF HER TAPER Phone Number Patient can be reached at: Other phone number: [phone] Best Time: ANYTIME Can we leave a detailed message on this number? YES Call taken on 10/31/2021 at 10:31 AM by Amalia Deluca documented in this encounter Plan of Treatment Upcoming Encounters Date Type Department Care Team (Late st Contact Info) Description 11/21/2024 7:00 AM CDT Office Visit [address] [phone] Maru Man PA-C [address] [place] [address] 12/20/2024 2:30 PM CDT Office Visit [facility] [address] [place] [phone] Esha Grimm PA-C [address] [place] [address] 04/16/2025 11:00 AM CDT Virtual Visit [facility] [address] [place] [phone] Meredith Carrera PA-C 909 [place] [address] documented as of this encounter Visit Diagnoses [...] Out COVID-19 05/17/2022 05/17/2022 05/17/2022 10:20 PM PLANNER Rule Out COVID-19 06/09/2022 06/09/2022 06/09/2022 9:35 AM PLANNER COVID-19 06/09/2022 06/09/2022 06/30/2022 11:4 1 PM PLANNER Rule Out COVID-19 11/10/2022 11/10/2022 11/11/2022 [...] as of this encounter Care Teams Building Maintenance Supervisor Relationship Specialty Start Date End Date Marija Edgar APRN [facility] PCP - General Nurse Practitioner 04/30/20 04/14/23 Esha Grimm PA-C [address] [place] [phone] PCP - General Family Medicine 05/04/23 Lita Oseguera Personal Advocate & Liaison (PAL) 02/28/20 03/27/23 Marija Edgar APRN [facility] Assigned PCP 06/08/20 04/29/23 Mynor Broussard MD [address] [address] Assigned Surgical Provider 06/01/20 11/28/21 Keisha Dotson MD 909 [place] [address] Assigned Neuroscience Provider 06/04/20 04/01/23 Galo Burrell MD Assigned Heart and Vascular Provider 10/05/20 04/02/22 Diana Desir [facility] 30[address] [place] [address] Pharmacist Pharmacist 04/17/21 Rain Galaviz PA-C [address] [place] [address] DR [address] [place], [place] [phone] Physician Extractive Metallurgist Dermatology 04/28/21 Summer Lara MD [address] [place] [address] 190674 Assigned OBGYN Provider 05/31/21 2 Tavia Wyatt MD [address] [place] [address] 773144 Dermatology 07/14/21 Johnny Murillo MD [address] [facility] [address] [place], [place] 935804 Assigned Musculoskeletal Provider 08/30/21 03/17/22 Erica Farrell APRN [facility] [address] [facility] [address] [place] [address] Nurse Practitioner Cardiovascular Disease 09/09/21 Tavia Wyatt MD [address] [place], [place] [phone] Assigned Surgical Provider 11/29/21 05/07/22 Diana Desir [facility] [address] [place] [address] Assigned MTM Pharmacist 01/02/22 Rich Barrett MD [address] [place], [place] 807396 Physician Ophthalmology 01/21/22 Neil Kent MD 500 [place], [place] 132425 Dermatology 02/24/22 [place] [address] [facility] [address] [place], [place] 902687 Assigned Musculoskeletal Provider 03/20/22 08/13/22 Erica Farrell APRN [facility] [place] [address] Assigned Heart and Vascular Provider 04/03/22 04/16/22 [facility] [address] [place] [address] Assigned MTM Pharmacist 04/07/22 Jelena David OD [address] [facility] [place] [address] Assigned Surgical Provider 05/08/22 10/08/22 Galo Burrell MD Assigned Heart and Vascular Provider 04/17/22 06/11/22 Livan Sharif MD [address] [place] 737125 Cardiovascular Disease 05/14/22 Livan Sharif MD [address] [address] [place] [address] Assigned Heart and Vascular Provider 06/12/22 07/23/22 Catherine Cm MD [address] [facility] [address] [place] [address] Cardiovascular Disease 07/21/22 Valery Veronica, PA-C [address] [place] [address] 655695 Physician Extractive Metallurgist Dermatology 07/21/22 Catherine Cm MD [address] [place] 8916200 [place] [address] Assigned Heart and Vascular Provider 07/24/22 11/05/22 Johnny Murillo MD [address] [place] [address] 103094 Assigned Musculoskeletal Provider 08/14/22 10/08/22 Brea Quinn APRN [facility] [address] [place] [address] 142685 Nurse Practitioner Dermatology 09/21/22 Brea Quinn APRN [facility] [address] [place] [address] [place] 596192 Assigned Surgical Provider 10/09/22 05/01/24 [place] [address] [facility] [place] [address] Assigned Musculoskeletal Provider 10/09/22 05/01/24 Livan Sharif MD [address] [place], [place] 219785 Assigned Heart and Vascular Provider 11/06/22 11/12/22 Catherine Cm MD [address] [place] [address] Assigned Heart and Vascular Provider 11/13/22 05/27/23 Sydnie Martinez RN Personal Advocate & Liaison (PAL) Family Medicine 03/28/23 07/31/23 Alfonso Renteria MD [address] [facility] [address] [place] [address] Assigned Neuroscience Provider 04/02/23 09/29/24 Cheng Todd PA-C [address] [place] [address] [phone] Assigned PCP 04/30/23 07/15/23 Radha Lomeli, ARLENE [facility] [address] [place] [address] Assigned Heart and Vascular Provider 05/28/23 Jelena David OD [address] [facility] [place] [address] Ophthalmology 06/15/23 Pao Joseph, VJ Personal Advocate & Liaison (PAL) Nurse 08/01/23 11/07/23 Esha Grimm PA-C [address] [place] [phone] Assigned PCP 07/16/23 Valery Veronica PA-C 9 [place], [place] 956025 Physician Extractive Metallurgist Dermatology 09/19/23 Rey Tay MD [address] [place] [address] MD Gastroenterology 09/20/23 Rocky Zepeda DO [address] [place] [address] 724615 Physician Gastroenterology 09/20/23 Philip Dumont MD [address] [place] [address] 025425 Physician Ophthalmology 09/22/23 Meredith Carrera PA-C [address] [place] [address] 930815 Assigned Gastroenterology Provider 11/01/23 Neil Kent MD [address] [address] Dermatology 11/02/23 [place] [address] [place] [address] Neurological Surgery 12/26/23 Audrey Waite PA-C [address] [place] [address] Physician Extractive Metallurgist Dermatology 02/28/24 Valery Veronica PA-C 977128 [address] [place] [address] Physician Extractive Metallurgist Dermatology 04/10/24 Herminia Hatch MD [address] [place] [address] Assigned Rheumatology Provider 07/02/24 Jelena David OD [address] [place] [address] [place] [address] Ophthalmology 08/30/24 [place] [address] [place] [address] Assigned Neuroscience Provider 09/30/24 Maru Man PA-C [address] [place] [address] Physician Extractive Metallurgist Dermatology 10/03/24 Maru Man PA-C [address] [place] [address] Physician Extractive Metallurgist Dermatology 10/22/24 Jelena David OD [address] [place] [address] [place] [address] Assigned Surgical Provider 10/31/24 documented as of this encounter
--- OUTSIDE RECORDS SUMMARY | 2024-11-21 05:11 | XMS_ITS | Encounter Summary ---
Author Organization [facility] Address [address] [place] [address] Care Team Providers Care Pewter Fabricator Name Role Phone Lita Oseguera Unavailable Unavailable Marija Edgar APRN QUALITY CONTROL TECH Primary Care Provider + Marija Edgar APRN QUALITY CONTROL TECH Unavailable Keisha Dotson MD Unavailable Galo Burrell MD Unavailable Unavailable Diana Desir [facility] Unavailable Rain Galaviz PA-C Unavailable Summer Lara MD Unavailable [phone] Tavia Wyatt MD Unavailable Johnny Murillo MD Unavailable Erica Farrell APRN QUALITY CONTROL TECH Unavailable Tavia Wyatt MD Unavailable Diana Desir [facility] Unavailable Rich Barrett MD Unavailable [phone] Neil Kent MD Unavailable Roney Story DPM Unavailable Erica Farrell APRN QUALITY CONTROL TECH Unavailable Diana Desir [facility] Unavailable [phone] Jelena David OD Unavailable [phone] Galo Burrell MD Unavailable Unavailable HoLivan MD Unavailable Livan Sharif MD Unavailable IsCatherine hobbs MD Unavailable + Valery Veronica PA-C Unavailable [phone] Catherine Cm MD Unavailable + Johnny Murillo MD Unavailable [phone] Brea Quinn CAMELID F[employer]ER SORTER QUALITY CONTROL TECH Unavailable [phone] Brea Quinn [employer] QUALITY CONTROL TECH Unavailable [phone] Jose Francisco Johnson MD Unavailable Livan Sharif MD Unavailable + IsCatherine boothe MD Unavailable + Sydnie Martinez RN Unavailable Unavailable Alfonso Renteria MD Unavailable Esha Grimm PA-C Primary Care Provider Cheng Todd PA-C Unavailable Radha Lomeli CAMEL[employer] S[employer]TER QUALITY CONTROL TECH Unavailable [phone] Jelena David OD Unavailable Pao Joseph RN Unavailable Unavailable Esha Grimm PA-C Unavailable [phone] Valery Veronica PA-C Unavailable [phone] Rey Tay MD Unavailable Rocky Zepeda DO Unavailable Philip Dumont MD Unavailable [phone] Meredith Carrera PA-C Unavailable Neil Ketn MD Unavailable Juan Pablo Emmanuel MD Unavailable Audrey Waite-C Unavailable [phone] Valery Veronica-C Unavailable Herminia Hatch MD Unavailable Jelena David OD Unavailable Juan Pablo Emmanuel MD Unavailable Maru Man PA-C Unavailable [phone] Maru Man PA-C Unavailable [phone] Jelena David OD Unavailable Encounter Details Date Type Department Care Team (Late st Contact Info) Description 12/03/2021 My[facility] [address] [facility] Epilepsy [facility] Emergency Department [address] [facility], [facility] [address] [place] [address] Keisha Dotson MD [address] [place] [address] Social History Tobacco Use Types [...] How often do you attend muslim or yazidi serv ices? Never 09/22/2021 Do [...] Date Recorded PHQ-2 Score 2 09/22/2021 [facility] of Occupat ional [facility] - Occupational Stress Questionnaire Answer Date [...] a care home (including now)? No 09/22/2021 Wardell Depression Scale Answer Date Recorded Wardell Depression Score 5 01/14/2021 Last EPDS Self Harm Result Not on file 01/14 Education Answer Date Recorded What is the highest level of school you have completed or the highest degree you have received? 12th grade 08/07/2020 Comments No Sex and Gender Information Value Date Recorded Sex Assigned at Female 03/02/2021 5:45 PM CDT Legal Sex Female 4:13 AM FAMILY DAY CARER Gender Identity Female 03/02/2021 5:45 PM CDT [...] AM CDT Office Visit [facility] [address] [phone] Maru Man PA-C [address] [place] [address] 413590 12/20/2024 2:30 PM CDT Office Visit [facility] [address] [place] [address] Esha Grimm PA-C [address] [place] [address] 04/16/2025 11:00 AM CDT Virtual Visit [facility] Gastroenterology Clinic [address] 4th [place] [phone] Meredith Carrera PA-C [address] [place] [address] 194245 documented as of this encounter Visit Diagnoses Not on filedocumented in this encounter Additional Health Concerns Infection Onset Date Last Indicated Resolved Time Rule Out COVID-19 12/18/2021 12/18/2021 12/19/2021 11:34 AM CDT Rule Out COVID-19 02/24/2022 02/24/2022 02/25/2022 1:08 PM CDT Rule Out COVID-19 04/26/2022 04/26/2022 04/26/2022 6:47 AM CDT Rule Out COVID-19 05/17/2022 05/17/2022 05/17/2022 10:20 PM FAMILY DAY CARER Rule Out COVID-19 06/09/2022 06/09/2022 06/09/2022 9:35 AM FAMILY DAY CARER COVID-19 06/09/2022 06/09/2022 06/30/2022 11:4 1 PM FAMILY DAY CARER Rule Out COVID-19 11/10/2022 11/10/2022 11/11/2022 12:17 [...] documented as of this encounter Care Teams Pewter Fabricator Relationship Specialty Start Date End Date Marija Edgar APRN QUALITY CONTROL TECH PCP - General Nurse Practitioner 04/30/20 04/14/23 Esha Grimm PA-C [address] [place] [address] PCP - General Family Medicine 05/04/23 Lita Oseguera Personal Advocate & Liaison (PAL) 02/28/20 03/27/23 Marija Edgar APRN QUALITY CONTROL TECH Assigned PCP 06/08/20 04/29/23 Keisha Dotson MD [address] [place], [place] 528235 Assigned Neuroscience Provider 06/04/20 04/01/23 Galo Burrell MD Assigned Heart and Vascular Provider 10/05/20 04/02/22 Diana Desir, [facility] [address] [place], [place] [phone] Pharmacist Pharmacist 04/17/21 Rain Galaviz PA-C [address] [place] [address] DR [facility] [address] Physician Fire Lookout Dermatology 04/28/21 Summer Lara MD [address] [place] [address] 687394 Assigned OBGYN Provider 05/31/21 2 Tavia Wyatt MD [address] [place] [address] 589694 Dermatology 07/14/21 Johnny Murillo MD [address] [place] [address] 465554 Assigned Musculoskeletal Provider 08/30/21 03/17/22 Erica Farrell APRN [facility] [address] Nurse Practitioner Cardiovascular Disease 09/09/21 Tavia Wyatt MD [facility] [place], [place] 961780 Assigned Surgical Provider 11/29/21 05/07/22 [facility] [address] [place] [address] Assigned MTM Pharmacist 01/02/22 Rich Barrett MD [address] [place] [address] Physician Ophthalmology 01/21/22 Neil Kent MD [address] [place] [address] Dermatology 02/24/22 Roney Story DPM [address] [facility] [address] [place], [place] 548807 Assigned Musculoskeletal Provider 03/20/22 08/13/22 Erica Farrell APRN QUALITY CONTROL TECH [address] [place] [address] Assigned Heart and Vascular Provider 04/03/22 04/16/22 Diana Desir, [facility] [address] [place] [address] Assigned MTM Pharmacist 04/07/22 Jelena David OD [address] [facility] [place] [address] Assigned Surgical Provider 05/08/22 10/08/22 Galo Burrell MD Assigned Heart and Vascular Provider 04/17/22 06/11/22 Livan Sharif MD [address] [place] [address] Cardiovascular Disease 05/14/22 Livan Sharif MD [address] [place] [address] Assigned Heart and Vascular Provider 06/12/22 07/23/22 Catherine Cm MD [address] [place] [address] Cardiovascular Disease 07/21/22 Valery Veronica PA-C [address] [place] [address] Physician Fire Lookout Dermatology 07/21/22 Catherine Cm MD [address] [place] [address] [place] [address] Assigned Heart and Vascular Provider 07/24/22 11/05/22 Johnny Murillo MD [facility] [address] [phone] Assigned Musculoskeletal Provider 08/14/22 10/08/22 Brea Quinn APRN QUALITY CONTROL TECH [address] [place] [address] [phone] Nurse Practitioner Dermatology 09/21/22 Brea Quinn APRN QUALITY CONTROL TECH [address] [place] [address] Assigned Surgical Provider 10/09/22 05/01/24 [place] [address] [place] [address] [address] Assigned Musculoskeletal Provider 10/09/22 05/01/24 Livan Sharif MD [address] [facility] [address] [place] 929685 Assigned Heart and Vascular Provider 11/06/22 11/12/22 Catherine Cm MD [address] [facility] [address] [place] [phone] Assigned Heart and Vascular Provider 11/13/22 05/27/23 Sydnie Martinez, VJ Personal Advocate & Liaison (PAL) Family Medicine 03/28/23 07/31/23 Alfonso Renteria MD [address] [facility] [address] [place] [address] Assigned Neuroscience Provider 04/02/23 09/29/24 Cheng Todd PA-C [address] [place] [address] [phone] Assigned PCP 04/30/23 07/15/23 Radha Lomeli APRN QUALITY CONTROL TECH [address] [facility] [address] [place] [address] Assigned Heart and Vascular Provider 05/28/23 Jelena David OD [address] [facility] [address] [place] [phone] Ophthalmology 06/15/23 Pao Joseph, VJ Personal Advocate & Liaison (PAL) Nurse 08/01/23 11/07/23 Esha Grimm PA-C [address] [place] [address] Assigned PCP 07/16/23 Valery Veronica PA-C [address] [place] [address] 405545 Physician Fire Lookout Dermatology 09/19/23 Rey Tay MD [address] [place] [address] [phone] MD Gastroenterology 09/20/23 Rocky Zepeda DO [address] [place] [address] 399415 Physician Gastroenterology 09/20/23 Philip Dumont MD [address] [place] [address] Physician Ophthalmology 09/22/23 Meredith Carrera PA-C [address] [place] [address] 041265 Assigned Gastroenterology Provider 11/01/23 Neil Kent MD [address] [place] [address] 400080 MD Dermatology 11/02/23 [place] [address] [place] [address] [address] Neurological Surgery 12/26/23 Audrey Waite PA-C [address] [place] [address] Physician Fire Lookout Dermatology 02/28/24 Valery Veronica PA-C 097414 [place], [place] [address] Physician Fire Lookout Dermatology 04/10/24 Herminia Hatch MD [facility] [place] [address] Assigned Rheumatology Provider 07/02/24 [place] [address] [place] [address] [place] [address] Ophthalmology 08/30/24 [place] [address] [place] [address] Assigned Neuroscience Provider 09/30/24 Maru Man PA-C [address] [place] [address] Physician Fire Lookout Dermatology 10/03/24 Maru Man PA-C [address] [place] [address] Physician Fire Lookout Dermatology 10/22/24 Jelena David OD [address] [facility] [place] [address] Assigned Surgical Provider 10/31/24 documented as of this encounter
--- OUTSIDE RECORDS SUMMARY | 2024-11-21 05:11 | XMS_ITS | Encounter Summary ---
Author Organization [facility] Address [address] [place] [address] Care Team Providers Care Family Service Counselor Name Role Phone Diana Desir [facility] Unavailable [phone] Rain Galaviz PA-C Unavailable Tavia Wyatt MD Unavailable Erica Farrell APRN OBSTETRICS SCRUB NURSE Unavailable Rich Barrett MD Unavailable [phone] Neil Kent MD Unavailable DesirDiana [facility] Unavailable Livan Sharif MD Unavailable Catherine Cm MD Unavailable + Valery Veronica PA-C Unavailable Brea Quinn APRN OBSTETRICS SCRUB NURSE Unavailable Brea Quinn MANAGER OF HEALTH OBSTETRICS SCRUB NURSE Unavailable Jose Francisco Johnson MD Unavailable Sydnie Martinez RN Unavailable Unavailable Alfonso Renteria MD Unavailable [phone] Esha Grimm PA-C Primary Care Provider Cheng Todd PA-C Unavailable Radha Lomeli APRN OBSTETRICS SCRUB NURSE Unavailable Jelena David OD Unavailable Pao Joseph RN Unavailable Unavailable Esha Grimm PA-C Unavailable [phone] Valery Veronica PA-C Unavailable Rey Tay [...] (Late st Contact Info) Description 06/17/2023 Telephone [facility] [address] [place] [address] Esha Grimm PA-C [address] [place] [address] Appointment Social History Tobacco Use [...] Answer Date Recorded PHQ-2 Score 1 10/24/2024 [facility] - Occupational Stress Questionnaire Answer [...] at this level? 20 min 05/07/2024 [place]edar Depression Scale Answer Date Recorded Cedar [...] CDT Legal Sex Female 4:13 AM WHEEL ALIGNMENT TECHNICIAN Gender Identity Female 03/02/2021 5:45 PM [...] they are all full today Lulu Day/ Plant Utility Person L ALIGNMENT TECHNICIAN * Telephone Encounter - Rosio Eller - 06/17/2023 7:13 AM CST Reason for Call: Appointment Request Patient requesting this type of appt: follow-up breast pain Requested provider: any Reason patient unable to be scheduled: Not within requested timeframe When does patient want to be seen/preferred time: today or Tuesday Comments: patient wondering if she could be worked in [employer] Could we send this information to you in [employer] or would you prefer to receive a phone call?: Patient would prefer a phone call Okay to leave a detailed message?: Yes at Home number on file [phone] (home) Call taken on 06/17/2023 at 7:13 AM by Rosio Eller L ALIGNMENT TECHNICIAN documented in this encounter Plan of Treatment Upcoming Encounters Date Type Department Care Team (Late st Contact Info) Description 11/21/2024 7:00 AM CDT Office Visit [address] [phone] Maru Man PA-C [address] [address] 12/20/2024 2:30 PM CDT Office Visit [facility] [address] [place] [address] Esha Grimm PA-C [address] [place] [address] 04/16/2025 11:00 AM CDT Virtual Visit [facility] Gastroenterology Clinic [address] [place] [phone] Meredith Carrera PA-C [address] [place] [address] [phone] documented as of this encounter Visit Diagnoses Not on filedocumented in this encounter Additional Health Concerns Infection Onset Date Last Indicated Resolved Time Rule Out COVID-19 12/26/2023 12/26/2023 12/26/2023 9:50 AM CDT Rule Out COVID-19 04/09/2024 04/09/2024 04/10/2024 6:48 PM CDT Rule Out COVID-19 10/04/2024 10/04/2024 10/05/2024 9:42 AM CDT Assessment Noted Time PHQ-9 Depression Total Score: 6 05/16/20 23 9:29 AM WHEEL ALIGNMENT TECHNICIAN documented as of this encounter Care Teams Family Service Counselor Relationship Specialty Start Date End Date Esha Grimm PA-C [address] [place] [address] PCP - General Family Medicine 05/04/23 Diana Desir, [facility] [address] [place], [place] 159316 Pharmacist Pharmacist 04/17/21 Rain Galaviz PA-C [address] [place] [address] [facility] [place] [address] Physician Associate Professor Of Law Dermatology 04/28/21 Tavia Wyatt MD [address] [place] [address] [place] [address] Dermatology 07/14/21 Erica Farrell APRN OBSTETRICS SCRUB NURSE [address] [place] [address] Nurse Practitioner Cardiovascular Disease 09/09/21 Rich Barrett MD [address] [place] 132805 Physician Ophthalmology 01/21/22 Neil Kent MD [address] [place] [address] 673105 Dermatology 02/24/22 [facility] [address] [place] [address] 854616 Assigned [place] Pharmacist 04/07/22 Livan Sharif MD [address] [facility] [place] [address] Cardiovascular Disease 05/14/22 Catherine Cm MD [address] [facility] [place] 6[address] Cardiovascular Disease 07/21/22 Valery Veronica, PA-C [address] [place] [address] 095425 Physician Associate Professor Of Law Dermatology 07/21/22 Brea Quinn APRN OBSTETRICS SCRUB NURSE [address] [place], [place] 373665 Nurse Practitioner Dermatology 09/21/22 Brea Quinn APRN OBSTETRICS SCRUB NURSE [address] [place] 612072 Assigned Surgical Provider 10/09/22 05/01/24 [place] [address] [address] [facility] [address] [place] [address] Assigned Musculoskeletal Provider 10/09/22 05/01/24 Sydnie Martinez RN Personal Advocate & Liaison (PAL) Family Medicine 03/28/23 07/31/23 Alfonso Renteria MD [address] [facility] 200 [place], [place] 687386 Assigned Neuroscience Provider 04/02/23 09/29/24 Cheng Todd PA-C [address] [place] [address] [phone] Assigned PCP 04/30/23 07/15/23 Radha Lomeli APRN OBSTETRICS SCRUB NURSE [address] [facility] [address] [place] 474745 Assigned Heart and Vascular Provider 05/28/23 Jelena David OD [address] [facility] [place] [address] Ophthalmology 06/15/23 Pao Joseph, VJ Personal Advocate & Liaison (PAL) Nurse 08/01/23 11/07/23 Esha Grimm PA-C [address] [place] [phone] Assigned PCP 07/16/23 Valery Veronica PA-C [address] [place] [address] 100905 Physician Associate Professor Of Law Dermatology 09/19/23 Rey Tay MD [address] [place] [address] 342495 MD Gastroenterology 09/20/23 Rocky Zepeda DO [address] [place] [address] 171535 Physician Gastroenterology 09/20/23 Philip Dumont MD [address] [place] [address] 449055 Physician Ophthalmology 09/22/23 Meredith Carrera PA-C [address] [place] [address] 844195 Assigned Gastroenterology Provider 11/01/23 Neil Kent MD [address] [place] [address] Dermatology 11/02/23 [place] [address] [place] [address] Neurological Surgery 12/26/23 Audrey Waite PA-C [address] [place] [address] Physician Associate Professor Of Law Dermatology 02/28/24 Valery Veronica PA-C [address] [place] [address] Physician Associate Professor Of Law Dermatology 04/10/24 Herminia Hatch MD [address] [place] [address] Assigned Rheumatology Provider 07/02/24 Jelena David OD [address] [facility] [place] [address] Ophthalmology 08/30/24 [place] [address] [place] [address] Assigned Neuroscience Provider 09/30/24 Maru Man PA-C [address] [place] [address] Physician Associate Professor Of Law Dermatology 10/03/24 Maru Man PA-C [address] [place] [address] Physician Associate Professor Of Law Dermatology 10/22/24 documented as of this encounter
--- OUTSIDE RECORDS SUMMARY | 2024-11-21 05:11 | XMS_ITS | Encounter Summary ---
Author Organization [facility] Address [address] [place] [address] Care Team Providers Care Auto Cleaner Name Role Phone Lita Oseguera Unavailable Unavailable Marija Edgar APRN POWERHOUSE OILER Primary Care Provider + Marija Edgar APRN POWERHOUSE OILER Unavailable [phone] Mynor Broussard MD Unavailable [phone] Keisha Dotson MD Unavailable Galo Burrell MD Unavailable Unavailable Diana Desir [facility] Unavailable Rain Galaviz PA-C Unavailable Summer Lara MD Unavailable [phone] Tavia Wyatt MD Unavailable Johnny Murillo MD Unavailable [phone] Erica Farrell APRN POWERHOUSE OILER Unavailable Tavia Wyatt MD Unavailable Diana Desir [facility] Unavailable Rich Barrett MD Unavailable [phone] Neil Kent MD Unavailable Roney StoryM Unavailable Erica Farrell APRN POWERHOUSE OILER Unavailable Diana Desir [facility] Unavailable Jelena David OD Unavailable Galo Burrell MD Unavailable Unavailable Livan Sharif MD Unavailable Livan Sharif MD Unavailable IsCatherine hobbs MD Unavailable + Valery Veronica PA-C Unavailable [phone] Catherine Cm MD Unavailable + Johnny Murillo MD Unavailable [phone] Brea Quinn LACQUER MIXER POWERHOUSE OILER Unavailable [phone] Brea Quinn LACQUER MIXER POWERHOUSE OILER Unavailable [phone] Jose Francisco Johnson MD Unavailable Livan Sharif MD Unavailable + IsCatherine hobbs MD Unavailable + Sydnie Martinez RN Unavailable Unavailable Alfonso Renteria MD Unavailable Esha Grimm PA-C Primary Care Provider Cheng Todd PA-C Unavailable Radha Lomeli LACQUER MIXER POWERHOUSE OILER Unavailable [phone] Jelena David OD Unavailable [phone] Pao Joseph RN Unavailable Unavailable Esha Grimm-C Unavailable [phone] Valery Veronica PA-C Unavailable [phone] Rey Tay MD Unavailable Rocky Zepeda DO Unavailable Philip Dumont MD Unavailable Byron Carreranahed Troncoso PA-C Unavailable [phone] Neil Kent MD Unavailable Juan Pablo Emmanuel MD Unavailable [phone] Audrey Waite PA-C Unavailable [phone] Valery Veronica PA-C Unavailable [phone] Herminia Hatch MD Unavailable Jelena David OD Unavailable [phone] Juan Pablo Emmanuel MD Unavailable [phone] Maru Man-C Unavailable [phone] Maru Man-C Unavailable [phone] Jelena David OD Unavailable Encounter Details Date Type Department Care Team (Late st Contact Info) Description 11/16/2021 MyC Medical Advice [address] [address] Diana Desir, [place] [address] [place] [address] Social History Tobacco Use Types Packs/Day Years [...] How often do you attend religion or worship serv ices? Never 09/22/2021 Do [...] in a usp (including now)? No 09/22/2021 [place] Depression Scale Answer Date Recorded [place] Depression Score 5 01/14/2021 Last EPDS Self Harm Result Not on file 01/14 Education Answer Date Recorded What is the highest level of school you have completed or the highest degree you have received? 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 No / Unsure 11/12/2021 5:01 PM CDT documented as of this encounter Plan of Treatment Upcoming Encounters Date Type Department Care Team ([facility] st Contact Info) Description 11/21/2024 7:00 AM CDT Office Visit [facility] [address] [address] Maru Man PA-C [address] [address] 12/20/2024 2:30 PM CDT Office Visit [facility] [address] [place] [address] Esha Grimm PA-C [address] [place] [address] 04/16/2025 11:00 AM CDT Virtual Visit [facility] [address] 4th [place] [phone] Meredith Carrera PA-C [address] [place] [address] documented as of this encounter Visit Diagnoses Not on filedocumented in this encounter Additional Health Concerns Infection Onset Date Last Indicated Resolved Time Rule Out COVID-19 12/18/2021 12/18/2021 12/19/2021 11:34 AM CDT Rule Out COVID-19 02/24/2022 02/24/2022 02/25/2022 1:08 PM CDT Rule Out COVID-19 04/26/2022 04/26/2022 04/26/2022 6:47 AM CDT Rule Out COVID-19 05/17/2022 05/17/2022 05/17/2022 10:20 PM SALESPERSON HOUSEHOLD APPLIANCES Rule Out COVID-19 06/09/2022 06/09/2022 06/09/2022 9:35 AM SALESPERSON HOUSEHOLD APPLIANCES COVID-19 06/09/2022 06/09/2022 06/30/2022 11:4 1 PM SALESPERSON HOUSEHOLD APPLIANCES Rule Out COVID-19 11/10/2022 11/10/2022 11/11/2022 12:17 [...] as of this encounter Care Teams Auto Cleaner Relationship Specialty Start Date End Date Marija Edgar APRN POWERHOUSE OILER PCP - General Nurse Practitioner 04/30/20 04/14/23 Esha Grimm PA-C [address] [place] [phone] PCP - General Family Medicine 05/04/23 Lita Oseguera Personal Advocate & Liaison (PAL) 02/28/20 03/27/23 Marija Edgar APRN POWERHOUSE OILER Assigned PCP 06/08/20 04/29/23 Mynor Broussard MD [address] [id number] Assigned Surgical Provider 06/01/20 11/28/21 Keisha Dotson MD [address] [place], [place] 579245 Assigned Neuroscience Provider 06/04/20 04/01/23 Galo Burrell MD Assigned Heart and Vascular Provider 10/05/20 04/02/22 Diana Desir, [facility] [address] [place] [address] Pharmacist Pharmacist 04/17/21 Rain Galaviz PA-C [address] [place] [address] [place] [address] Physician Staff Air Tactical Officer Dermatology 04/28/21 Summer Lara MD [address] [place] [address] Assigned OBGYN Provider 05/31/21 Tavia Wyatt MD [address] [place] [address] 419214 Dermatology 07/14/21 Johnny Murillo MD [address] [facility] [address] [place] [address] Assigned Musculoskeletal Provider 08/30/21 03/17/22 Erica Farrell APRN POWERHOUSE OILER [address] [facility] [address] [place] [address] Nurse Practitioner Cardiovascular Disease 09/09/21 Tavia Wyatt MD [address] [place], [place] 857740 Assigned Surgical Provider 11/29/21 05/07/22 Diana Desir, [facility] 30[address] [place] [address] Assigned MTM Pharmacist 01/02/22 Rich Barrett MD 3033 [place] [address] Physician Ophthalmology 01/21/22 Neil Kent MD 500 [place] [address] Dermatology 02/24/22 Roney Story DPM [address] [facility] [address] [place] [address] Assigned Musculoskeletal Provider 03/20/22 08/13/22 Erica Farrell APRN POWERHOUSE OILER 1700 [place] [address] Assigned Heart and Vascular Provider 04/03/22 04/16/22 [facility] [address] [place] [address] Assigned MTM Pharmacist 04/07/22 Jelena David OD [address] [facility] [place] [address] Assigned Surgical Provider 05/08/22 10/08/22 Galo Burrell MD Assigned Heart and Vascular Provider 04/17/22 06/11/22 Livan Sharif MD [address] [place] [address] Cardiovascular Disease 05/14/22 Livan Sharif MD [address] [place] 716965 Assigned Heart and Vascular Provider 06/12/22 07/23/22 Catherine Cm MD [address] [facility] [place] [address] Cardiovascular Disease 07/21/22 Valery Veronica, PA-C [address] [place] [address] Physician Staff Air Tactical Officer Dermatology 07/21/22 Catherine Cm MD [address] [place] [phone] [place] 9[address]25 Assigned Heart and Vascular Provider 07/24/22 11/05/22 Johnny Murillo MD [address] [place] [address] Assigned Musculoskeletal Provider 08/14/22 10/08/22 Brea Quinn APRN POWERHOUSE OILER [address] [place] [address] Nurse Practitioner Dermatology 09/21/22 Brea Quinn APRN POWERHOUSE OILER [address] [place] [address] [place] [address] Assigned Surgical Provider 10/09/22 05/01/24 [place] [address] [place] [address] [place] [address] Assigned Musculoskeletal Provider 10/09/22 05/01/24 Livan Sharif MD [address] [facility] [place] [address] Assigned Heart and Vascular Provider 11/06/22 11/12/22 Catherine Cm MD [address] [facility] [address] [place] [address] Assigned Heart and Vascular Provider 11/13/22 05/27/23 Sydnie Martinez RN Personal Advocate & Liaison (PAL) Family Medicine 03/28/23 07/31/23 Alfonso Renteria MD [address] [facility] 200 [place] [address] Assigned Neuroscience Provider 04/02/23 09/29/24 Cheng Todd PA-C [address] [place] [address] [id number] Assigned PCP 04/30/23 07/15/23 Radha Lomeli APRN POWERHOUSE OILER [address] [facility] [address] [place] [address] Assigned Heart and Vascular Provider 05/28/23 Jelena David OD [address] [facility] [place] [address] Ophthalmology 06/15/23 Pao Joseph RN Personal Advocate & Liaison (PAL) Nurse 08/01/23 11/07/23 Esha Grimm PA-C [address] [place] [address] Assigned PCP 07/16/23 Valery Veronica PA-C [address] [place] [address] Physician Staff Air Tactical Officer Dermatology 09/19/23 Rey Tay MD [address] [place] [address] MD Gastroenterology 09/20/23 Rocky Zepeda DO [address] [place] [address] Physician Gastroenterology 09/20/23 Philip Dumont MD [address] [place] [address] Physician Ophthalmology 09/22/23 Meredith Carrera PA-C [address] [place] [address] Assigned Gastroenterology Provider 11/01/23 Neil Kent MD [address] 116[address] Dermatology 11/02/23 [place] [address] [address] Neurological Surgery 12/26/23 Audrey Waite PA-C [address] [place] [address] Physician Staff Air Tactical Officer Dermatology 02/28/24 Valery Veronica PA-C 439369 [address], [place] [address] Physician Staff Air Tactical Officer Dermatology 04/10/24 Herminia Hatch MD [facility]5 [place], [place] [phone] Assigned Rheumatology Provider 07/02/[address] [facility]5 [facility] [place] [address] Ophthalmology 08/30/24 [place] [address] [place] [address] Assigned Neuroscience Provider 09/30/24 Maru Man PA-C [address] [place] [address] Physician Staff Air Tactical Officer Dermatology 10/03/24 Maru Man PA-C [address] [place] [address] Physician Staff Air Tactical Officer Dermatology 10/22/24 Jelena David OD [address] [place] [address] [place] [address] Assigned Surgical Provider 10/31/24 documented as of this encounter
--- OUTSIDE RECORDS SUMMARY | 2024-11-21 05:11 | XMS_ITS | Encounter Summary ---
Author Organization [facility] Address [address] [place] [address] Care Team Providers Care Hat Finishing Materials Preparer Name Role Phone Marija Edgar APRN BELT REPAIRER Primary Care Provider + Marija Edgar APRN BELT REPAIRER Unavailable Diana Desir [facility] Unavailable Rain Galaviz PA-C Unavailable Tavia Wyatt MD Unavailable Erica Farrell APRN BELT REPAIRER Unavailable Rich Barrett MD Unavailable [phone] Neil Kent MD Unavailable Diana Desir [facility] Unavailable iLvan Sharif MD Unavailable Catherine Cm MD Unavailable + Vlaery Veronica PA-C Unavailable [phone] Brea Quinn APRN BELT REPAIRER Unavailable [phone] Brea Quinn APRN, CNP Unavailable Jose Francisco Johnson MD Unavailable Catherine Cm MD Unavailable + Sydnie Martinez RN Unavailable Unavailable Alfonso Renteria MD Unavailable [phone] Esha Grimm PA-C Primary Care Provider Cheng Todd PA-C Unavailable Armani Radha Sia JACOBS CNP Unavailable Jelena David OD Unavailable Pao Joseph RN Unavailable Unavailable Esha Grimm PA-C Unavailable [phone] Valery Veronica PA-C Unavailable Rey Tay MD Unavailable Rocky Zepeda DO Unavailable Philip Dumont MD Unavailable Meredith Carrera PA-C Unavailable [phone] Neil Kent MD Unavailable Juan Pablo Emmanuel MD Unavailable Audrey Waite PA-C Unavailable JeremíasValery damon PA-C Unavailable Herminia Hatch MD Unavailable Jelena David OD Unavailable Juan Pablo Emmanuel MD Unavailable Maru Man PA-C Unavailable Maru Man PA-C Unavailable Jelena David OD Unavailable Encounter Details Date Type Department Care Team (Late st Contact Info) Description 04/12/2023 [facility] Heart [address] [phone] Livan Sharif MD [address] [place] [address] Social History Tobacco Use Types Packs/Day Years [...] week 03/10/2023 How often do you attend [facility] or christianity services? 1 to 4 [...] Answer Date Recorded PHQ-2 Score 0 03/10/2023 [facility] - Occupational [...] in a custodial (including now)? 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 Kim Swann, We are in [place], but asked a tech here to check the photo. He said the spot you chose is OK but he thinks we should have the [facility] techs check in with you as you may need to have some extra prep gelif you have have issues with the pads. We are reaching out to that [facility] team to let them know you are having some issues. Team [address] [place] [address] Sharif [phone] documented in this encounter Plan of Treatment Upcoming Encounters Date Type Department Care Team (Late st Contact Info) Description 11/21/2024 7:00 AM CDT Office Visit [facility] [address] [address] Maru Man PA-C [address] [address] 12/20/2024 2:30 PM CDT Office Visit [facility] [address] [place] [address] sEha Grimm PA-C [address] [place] [address] 04/16/2025 11:00 AM CDT Virtual Visit [facility] Gastroenterology Clinic [address] [phone] Meredith Carrera PA-C [address] [place] [address] 863915 documented as of this encounter Visit Diagnoses [...] documented as of this encounter Care Teams Hat Finishing Materials Preparer Relationship Specialty Start Date End Date Marija Edgar APRN BELT REPAIRER PCP - General Nurse Practitioner 04/30/20 04/14/23 Esha Grimm PA-C [address] [place] [address] PCP - General Family Medicine 05/04/23 Marija Edgar APRN BELT REPAIRER Assigned PCP 06/08/20 04/29/23 [facility] 3033 [place] [address] Pharmacist Pharmacist 04/17/21 Rain Galaviz PA-C [address] [place] [address] [address] [place] [address] Physician Pathology Laboratory Technologist Dermatology 04/28/21 Tavia Wyatt MD [address] [place] [address] [address] [place] [address] Dermatology 07/14/21 Erica Farrell APRN BELT REPAIRER [address] [place] [address] Nurse Practitioner Cardiovascular Disease 09/09/21 Rich Barrett MD [address] [place] [address] Physician Ophthalmology 01/21/22 Neil Kent MD 500 [place] [address] Dermatology 02/24/22 Diana Desir, [facility] 30[address] [place] [address] Assigned [place] Pharmacist 04/07/22 Livan Sharif MD [address] [place] [address] Cardiovascular Disease 05/14/22 Catherine Cm MD [address] [place] [address] Cardiovascular Disease 07/21/22 Valery Veronica, PA-C [address] [place] [address] Physician Pathology Laboratory Technologist Dermatology 07/21/22 Brea Quinn APRN BELT REPAIRER [address] [place] [address] Nurse Practitioner Dermatology 09/21/22 Brea Quinn APRN BELT REPAIRER [address] [place] [address] Assigned Surgical Provider 10/09/22 05/01/24 [place] [address] [place] [address] Assigned Musculoskeletal Provider 10/09/22 05/01/24 Catherine Cm MD [address] [place] [address] Assigned Heart and Vascular Provider 11/13/22 05/27/23 Sydnie Martinez, RN Personal Advocate & Liaison (PAL) Family Medicine 03/28/23 07/31/23 Alfonso Renteria MD [facility] 200 [place] [address] Assigned Neuroscience Provider 04/02/23 09/29/24 Cheng Todd PA-C [address] [place] [address] [phone] Assigned PCP 04/30/23 07/15/23 Radha Lomeli APRN BELT REPAIRER [address] [facility] [address] [place], [place] 131165 Assigned Heart and Vascular Provider 05/28/23 Jelena David OD [address] [facility] [address] [place] [phone] Ophthalmology 06/15/23 Pao Joseph RN Personal Advocate & Liaison (PAL) Nurse 08/01/23 11/07/23 Esha Grimm PA-C [address] [place] [address] Assigned PCP 07/16/23 Valery Veronica PA-C [address] [place] [address] 935135 Physician Pathology Laboratory Technologist Dermatology 09/19/23 Rey Tay MD [address] [place] [address] [id number] MD Gastroenterology 09/20/23 Rocky Zepeda DO [address] [place] [address] 093805 Physician Gastroenterology 09/20/23 Philip Dumont MD [address] [place] [address] 557445 Physician Ophthalmology 09/22/23 Meredith Carrera PA-C [address] [place] [address] 160115 Assigned Gastroenterology Provider 11/01/23 Neil Kent MD [address] [place] [address] 635530 MD Dermatology 11/02/23 [place] [address] [address] Neurological Surgery 12/26/23 Audrey Waite PA-C 500 [place] [address] Physician Pathology Laboratory Technologist Dermatology 02/28/24 Valery Veronica PA-C 59[address]56 [address] [place] [address] Physician Pathology Laboratory Technologist Dermatology 04/10/24 Herminia Hatch MD [facility]5 [place] [address] Assigned Rheumatology Provider 07/02/24 Jelena David OD [address] [facility] [place] [address] Ophthalmology 08/30/24 [place] [address] [place] [address] Assigned Neuroscience Provider 09/30/24 Maru Man PA-C [address] [place] [address] Physician Pathology Laboratory Technologist Dermatology 10/03/24 Maru Man PA-C [address] [place] [address] Physician Pathology Laboratory Technologist Dermatology 10/22/24 Jelena David, SONJA [address] [facility] [place] [address] Assigned Surgical Provider 10/31/24 documented as of this encounter
--- OUTSIDE RECORDS SUMMARY | 2024-11-21 05:11 | XMS_ITS | Encounter Summary ---
Author Organization [facility] Address [address] [place] [address] Care Team Providers Care Charger Operator Name Role Phone Lita Oseguera Unavailable Unavailable Marija Edgar APRN DELINQUENT NOTICE MACHINE OPERATOR Primary Care Provider + Marija Edgar APRN DELINQUENT NOTICE MACHINE OPERATOR Unavailable [phone] Mynor Broussard MD Unavailable [phone] Keisha Dotson MD Unavailable Galo Burrell MD Unavailable Unavailable Diana Desir [facility] Unavailable Rain Galaviz PA-C Unavailable Summer Lara MD Unavailable [phone] Tavia Wyatt MD Unavailable Johnny Murillo MD Unavailable Erica Farrell APRN DELINQUENT NOTICE MACHINE OPERATOR Unavailable Tavia Wyatt MD Unavailable Diana Desir [facility] Unavailable Rich Barrett MD Unavailable [phone] Neil Kent MD Unavailable Roney StoryM Unavailable Erica Farrell APRN DELINQUENT NOTICE MACHINE OPERATOR Unavailable Diana Desir [facility] Unavailable Jelena David OD Unavailable Galo Burrell MD Unavailable Unavailable Livan Sharif MD Unavailable Livan Sharif MD Unavailable IsCatherine hobbs MD Unavailable + Valery Veronica PA-C Unavailable [phone] Catherine Cm MD Unavailable + Johnny Murillo MD Unavailable [phone] Brea Quinn VP RESPIRATORY DELINQUENT NOTICE MACHINE OPERATOR Unavailable [phone] Brea Quinn VP RESPIRATORY DELINQUENT NOTICE MACHINE OPERATOR Unavailable [phone] Jose Francisco Johnson MD Unavailable Livan Sharif MD Unavailable + IsCatherine hobbs MD Unavailable + Sydnie Martinez RN Unavailable Unavailable Alfonso Renteria MD Unavailable Ehsa Grimm PA-C Primary Care Provider Cheng Todd PA-C Unavailable Radha Lomeli VP RESPIRATORY DELINQUENT NOTICE MACHINE OPERATOR Unavailable [phone] Jelena David OD Unavailable Pao Joseph RN Unavailable Unavailable Esha Grimm-C Unavailable [phone] Valery Veronica PA-C Unavailable [phone] Rey Tay MD Unavailable Rocky Zepeda DO Unavailable Philip Dumont MD Unavailable [phone] Byron Carreranahed Troncoso PA-C Unavailable [phone] Neil [place] MD Unavailable Juan Pablo Emmanuel MD Unavailable [phone] Audrey Waite PA-C Unavailable [phone] Valery Veronica PA-C Unavailable [phone] Herminia Hatch MD Unavailable Jelena David OD Unavailable [phone] Juan Pablo Emmanuel MD Unavailable [phone] Maru Man-C Unavailable [phone] Maru Man-C Unavailable [phone] Jelena David OD Unavailable Encounter Details Date Type Department Care Team (Late st Contact Info) Description 11/04/2021 MyC Medical Advice [address] [address] Diana Desir, [place] [address] [place] [address] Social History Tobacco Use Types Packs/Day Years [...] How often do you attend gnosticism or faith serv ices? Never 09/22/2021 Do [...] in a custodial (including now)? No 09/22/2021 Kamiah Depression Scale Answer Date Recorded Kamiah Depression Score 5 01/14/2021 Last EPDS Self Harm Result Not on file 01/14 Education Answer Date Recorded What is the highest level of school you have completed or the highest degree you have received? 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 Gender Identity Female 03/02/2021 5:45 [...] Upcoming Encounters Date Type Department Care Team ([facility] st Contact Info) Description 11/21/2024 7:00 AM CDT Office Visit [facility] [address] [address] Maru Man PA-C [address] [address] 12/20/2024 2:30 PM CDT Office Visit [facility] [address] [place] [address] Esha Grimm PA-C [address] [place] [address] 04/16/2025 11:00 AM CDT Virtual Visit [facility] [address] 4th [place] [phone] Meredith Carrera PA-C 909 [place] [address] documented as of this encounter Visit Diagnoses Not on filedocumented in this encounter Additional Health Concerns Infection Onset Date Last Indicated Resolved Time Rule Out COVID-19 12/18/2021 12/18/2021 12/19/2021 11:34 AM CDT Rule Out COVID-19 02/24/2022 02/24/2022 02/25/2022 1:08 PM CDT Rule Out COVID-19 04/26/2022 04/26/2022 04/26/2022 6:47 AM CDT Rule Out COVID-19 05/17/2022 05/17/2022 05/17/2022 10:20 PM SPUN PASTE MACHINE OPERATOR Rule Out COVID-19 06/09/2022 06/09/2022 06/09/2022 9:35 AM SPUN PASTE MACHINE OPERATOR COVID-19 06/09/2022 06/09/2022 06/30/2022 11:4 1 PM SPUN PASTE MACHINE OPERATOR Rule Out COVID-19 11/10/2022 11/10/2022 [...] documented as of this encounter Care Teams Charger Operator Relationship Specialty Start Date End Date Marija Edgar APRN DELINQUENT NOTICE MACHINE OPERATOR PCP - General Nurse Practitioner 04/30/20 04/14/23 Esha Grimm PA-C [address] [place] [phone] PCP - General Family Medicine 05/04/23 Lita Oseguera Personal Advocate & Liaison (PAL) 02/28/20 03/27/23 Marija Edgar APRN DELINQUENT NOTICE MACHINE OPERATOR Assigned PCP 06/08/20 04/29/23 Mynor Broussard MD [address] [id number] Assigned Surgical Provider 06/01/20 11/28/21 Keisha Dotson MD 909 [place], [place] 444455 Assigned Neuroscience Provider 06/04/20 04/01/23 Galo Burrell MD Assigned Heart and Vascular Provider 10/05/20 04/02/22 Diana Desir, [facility] 3033 [place] [address] Pharmacist Pharmacist 04/17/21 Rain Galaviz PA-C [address] [place] [address] [place] [address] Physician Biological Inspector Dermatology 04/28/21 Summer Lara MD [address] [place] [address] Assigned OBGYN Provider 05/31/21 Tavia Wyatt MD [address] [place] [address] 969264 Dermatology 07/14/21 Johnny Murillo MD [address] [facility] [address] [place] [address] Assigned Musculoskeletal Provider 08/30/21 03/17/22 Erica Farrell APRN DELINQUENT NOTICE MACHINE OPERATOR 6405 [facility] [address] [place] [address] Nurse Practitioner Cardiovascular Disease 09/09/21 Tavia Wyatt MD [address] [place], [place] 512410 Assigned Surgical Provider 11/29/21 05/07/22 Diana Desir, [facility] 30[address] [place] [address] Assigned MTM Pharmacist 01/02/22 Rich Barrett MD 30[address] [place] [address] Physician Ophthalmology 01/21/22 Neil Kent MD 500 [place] [address] Dermatology 02/24/22 Roney Story DPM [address] [facility] [address] [place] [address] Assigned Musculoskeletal Provider 03/20/22 08/13/22 Erica Farrell APRN DELINQUENT NOTICE MACHINE OPERATOR 1700 [place] [address] Assigned Heart and Vascular Provider 04/03/22 04/16/22 [facility] [address] [place] [address] Assigned MTM Pharmacist 04/07/22 Jelena David OD [address] [facility] [address] Assigned Surgical Provider 05/08/22 10/08/22 Galo Burrell MD Assigned Heart and Vascular Provider 04/17/22 06/11/22 Livan Sharif MD [address] [place] [address] Cardiovascular Disease 05/14/22 Livan Sharif MD [address] [place] 416765 Assigned Heart and Vascular Provider 06/12/22 07/23/22 Catherine Cm MD [address] [facility]00 [place] [address] Cardiovascular Disease 07/21/22 Valery Veronica, PA-C [address] [place] [address] Physician Biological Inspector Dermatology 07/21/22 Catherine Cm MD [address] [place] [phone] [place] [id number] Assigned Heart and Vascular Provider 07/24/22 11/05/22 Johnny Murillo MD [address] [place] [address] Assigned Musculoskeletal Provider 08/14/22 10/08/22 Brea Quinn APRN DELINQUENT NOTICE MACHINE OPERATOR [address] [place] [address] Nurse Practitioner Dermatology 09/21/22 Brea Quinn APRN DELINQUENT NOTICE MACHINE OPERATOR [address] [place] [address] [place] [address] Assigned Surgical Provider 10/09/22 05/01/24 [place] [address] [place] [address] [place] [address] Assigned Musculoskeletal Provider 10/09/22 05/01/24 Livan Sharif MD [address] [facility]00 [place] [address] Assigned Heart and Vascular Provider 11/06/22 11/12/22 Catherine Cm MD [address] [facility] [address] [place] [address] Assigned Heart and Vascular Provider 11/13/22 05/27/23 Sydnie Martinez RN Personal Advocate & Liaison (PAL) Family Medicine 03/28/23 07/31/23 Alfonso Renteria MD 5775 [facility] 200 [place] [address] Assigned Neuroscience Provider 04/02/23 09/29/24 Cheng Todd PA-C [address] [place] [address] [id number] Assigned PCP 04/30/23 07/15/23 Radha Lomeli APRN DELINQUENT NOTICE MACHINE OPERATOR 6405 [facility] [address] [place] [address] Assigned Heart and Vascular Provider 05/28/23 Jelena David OD [address] [facility] [address] Ophthalmology 06/15/23 Pao Joseph RN Personal Advocate & Liaison (PAL) Nurse 08/01/23 11/07/23 Esha Grimm PA-C [address] [place] [address] Assigned PCP 07/16/23 Valery Veronica PA-C [address] [place] [address] Physician Biological Inspector Dermatology 09/19/23 Rey Tay MD [address] [place] [address] MD Gastroenterology 09/20/23 Rocky Zepeda DO [address] [place] [address] Physician Gastroenterology 09/20/23 Philip Dumont MD [address] [place] [address] Physician Ophthalmology 09/22/23 Meredith Carrera PA-C [address] [place] [address] Assigned Gastroenterology Provider 11/01/23 Neil Kent MD [address] [phone] Dermatology 11/02/23 [place] [address] [address] [address] Neurological Surgery 12/26/23 Audrey Waite PA-C [address] [place] [address] Physician Biological Inspector Dermatology 02/28/24 Valery Veronica PA-C 426585 [address], [place] [address] Physician Biological Inspector Dermatology 04/10/24 Herminia Hatch MD [facility]5 [place], [place] 02697125 Assigned Rheumatology Provider 07/02/[address] [facility] [place] [address] Ophthalmology 08/30/24 [place] [address] [address] Assigned Neuroscience Provider 09/30/24 Maru Man PA-C [address] [place] [address] Physician Biological Inspector Dermatology 10/03/24 Maru Man PA-C [address] [place] [address] Physician Biological Inspector Dermatology 10/22/24 Jelena David OD [address] [place] [address] [place] [address] Assigned Surgical Provider 10/31/24 documented as of this encounter
--- OUTSIDE RECORDS SUMMARY | 2024-11-21 05:11 | XMS_ITS | Encounter Summary ---
Author Organization [facility] Address [address] [place] [address] Care Team Providers Care Robotic Technician Name Role Phone Lita Oseguera Unavailable Unavailable Marija Edgar APRN DOCUMENT IMAGE TECHNICIAN Primary Care Provider + Marija Edgar APRN DOCUMENT IMAGE TECHNICIAN Unavailable Keisha Dotson MD Unavailable Galo Burrell MD Unavailable Unavailable Diana Desir [facility] Unavailable Rain Galaviz PA-C Unavailable Summer Lara MD Unavailable [phone] Tavia Wyatt MD Unavailable Johnny Murillo MD Unavailable Erica Farrell APRN DOCUMENT IMAGE TECHNICIAN Unavailable Tavia Wyatt MD Unavailable Diana Desir [facility] Unavailable Rich Barrett MD Unavailable [phone] Neil Kent MD Unavailable Roney Story DPM Unavailable Erica Farrell APRN DOCUMENT IMAGE TECHNICIAN Unavailable Diana Desir [facility] Unavailable [phone] Jelena David OD Unavailable [phone] Galo Burrell MD Unavailable Unavailable HoLivan MD Unavailable Livan Sharif MD Unavailable IsCatherine hobbs MD Unavailable + Valery Veronica PA-C Unavailable [phone] Catherine Cm MD Unavailable + Johnny Murillo MD Unavailable [phone] Brea Quinn BROADBAND ENGINEER DOCUMENT IMAGE TECHNICIAN Unavailable [phone] Brea Quinn BROADBAND ENGINEER DOCUMENT IMAGE TECHNICIAN Unavailable [phone] Jose Francisco Johnson MD Unavailable Livan Sharif MD Unavailable + IsCatherine boothe MD Unavailable + Sydnie Martinez RN Unavailable Unavailable Alfonso Renteria MD Unavailable Esha Grimm PA-C Primary Care Provider Cheng Todd PA-C Unavailable Radha Lomeli BROADBAND ENGINEER DOCUMENT IMAGE TECHNICIAN Unavailable [phone] Jelena David OD Unavailable Pao Joseph RN Unavailable Unavailable Esha Grimm PA-C Unavailable [phone] Valery Veronica PA-C Unavailable [phone] Rey Tay MD Unavailable Rocky Zepeda DO Unavailable Philip Dumont MD Unavailable [phone] Meredith Carrera PA-C Unavailable Neil Kent MD Unavailable Juan Pablo Emmanuel MD Unavailable [phone] Audrey Waite PA-C Unavailable [phone] Valery Veronica PA-C Unavailable [phone] Herminia Hatch MD Unavailable Jelena David OD Unavailable Juan Pablo Emmanuel MD Unavailable [phone] Maru Man PA-C Unavailable [phone] Maru Man PA-C Unavailable [phone] Encounter Details Date Type Department Care Team (Late st Contact Info) Description 12/18/2021 Telephone [facility] [id number] [place] [address] Lauren Claudio PA-C [address] [place] [address] Social History Tobacco Use Types Packs/Day [...] PM CDT Legal Sex Female 4: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 YES Call taken on 12/18/2021 at 11:01 AM by Amalia Deluca documented in this encounter Plan of Treatment Upcoming Encounters Date Type Department Care Team (Late st Contact Info) Description 11/21/2024 7:00 AM CDT Office Visit [address] [phone] Maru Man PA-C [address] [place] [address] 12/20/2024 2:30 PM CDT Office Visit [address] [phone] Esha Grimm PA-C [id number] [place] [address] 04/16/2025 11:00 AM CDT Virtual Visit [facility] [address] 4th [place] [phone] Meredith Carrera PA-C [address] [place] [address] 703845 documented as of this encounter Visit Diagnoses Not on filedocumented in this encounter Additional Health Concerns Infection Onset Date Last Indicated Resolved Time Rule Out COVID-19 12/18/2021 12/18/2021 12/19/2021 11:34 AM CDT Rule Out COVID-19 02/24/2022 02/24/2022 02/25/2022 1:08 PM CDT Rule Out COVID-19 04/26/2022 04/26/2022 04/26/2022 6:47 AM CDT Rule Out COVID-19 05/17/2022 05/17/2022 05/17/2022 10:20 PM AN EMPLOYEE SPONSOR OR ADVOCATE AND Rule Out COVID-19 06/09/2022 06/09/2022 06/09/2022 9:35 AM AN EMPLOYEE SPONSOR OR ADVOCATE AND COVID-19 06/09/2022 06/09/2022 06/30/2022 11:4 1 PM AN EMPLOYEE SPONSOR OR ADVOCATE AND Rule Out COVID-19 11/10/2022 11/10/2022 11/11/2022 12:17 [...] documented as of this encounter Care Teams Robotic Technician Relationship Specialty Start Date End Date Marija Edgar APRN DOCUMENT IMAGE TECHNICIAN PCP - General Nurse Practitioner 04/30/20 04/14/23 Esha Grimm PA-C [address] [place] [phone] PCP - General Family Medicine 05/04/23 Lita Oseguera Personal Advocate & Liaison (PAL) 02/28/20 03/27/23 Marija Edgar APRN DOCUMENT IMAGE TECHNICIAN Assigned PCP 06/08/20 04/29/23 Keisha Dotson MD 909 [place] [address] Assigned Neuroscience Provider 06/04/20 04/01/23 Galo Burrell MD Assigned Heart and Vascular Provider 10/05/20 04/02/22 [facility] [address] [place] [address] Pharmacist Pharmacist 04/17/21 Rain Galaviz PA-C [address] [facility] [place] [address] Physician Mohs Surgeon Dermatology 04/28/21 Summer Lara MD [address] [place] [address] 58[address] Assigned OBGYN Provider 05/31/21 2 Tavia Wyatt MD [address] [place] [address] 072564 Dermatology 07/14/21 Johnny Murillo MD 2512 [address] [facility] [address] [place] [address] Assigned Musculoskeletal Provider 08/30/21 03/17/22 Erica Farrell APRN DOCUMENT IMAGE TECHNICIAN 6405 [facility] [address] [place] [address] Nurse Practitioner Cardiovascular Disease 09/09/21 Tavia Wyatt MD [address] [place] [address] Assigned Surgical Provider 11/29/21 05/07/22 Diana Desir, [facility] 3033 [place] [address] Assigned MTM Pharmacist 01/02/22 Rich Barrett MD 3033 [place] [address] Physician Ophthalmology 01/21/22 Neil Kent MD 500 [place] [address] Dermatology 02/24/22 Roney Story DPM [address] [facility] 300 [place] [address] Assigned Musculoskeletal Provider 03/20/22 08/13/22 Erica Farrell APRN DOCUMENT IMAGE TECHNICIAN 1700 [place] [address] Assigned Heart and Vascular Provider 04/03/22 04/16/22 Diana Desir, [facility] [address] [place] [address] Assigned MTM Pharmacist 04/07/22 Jelena David OD 3305 [facility] [place] [address] Assigned Surgical Provider 05/08/22 10/08/22 Galo Burrell MD Assigned Heart and Vascular Provider 04/17/22 06/11/22 Livan Sharif MD [address] [place] [address] Cardiovascular Disease 05/14/22 Livan Sharif MD [address] [place] [address] Assigned Heart and Vascular Provider 06/12/22 07/23/22 Catherine Cm MD [address] [place] [address] Cardiovascular Disease 07/21/22 Valery Veronica, PA-C [address] [place] [address] 312315 Physician Mohs Surgeon Dermatology 07/21/22 Catherine Cm MD [address] [place] 237745 Assigned Heart and Vascular Provider 07/24/22 11/05/22 Johnny Murillo MD [address] [place] [address] Assigned Musculoskeletal Provider 08/14/22 10/08/22 Brea Quinn APRN DOCUMENT IMAGE TECHNICIAN [address] [place] [address] 245665 Nurse Practitioner Dermatology 09/21/22 Brea Quinn APRN DOCUMENT IMAGE TECHNICIAN [address] [place] [address] Assigned Surgical Provider 10/09/22 05/01/24 [place] [address] [place] [address], [place] [address] Assigned Musculoskeletal Provider 10/09/22 05/01/24 Livan Sharif MD [address] [place] 891515 Assigned Heart and Vascular Provider 11/06/22 11/12/22 Catherine Cm MD [address] [place] [address] Assigned Heart and Vascular Provider 11/13/22 05/27/23 Sydnie Martinez, VJ Personal Advocate & Liaison (PAL) Family Medicine 03/28/23 07/31/23 Alfonso Renteria MD 5775 [facility] 200 [place] [address] Assigned Neuroscience Provider 04/02/23 09/29/24 Cheng Todd PA-C [address] [place] [address] Assigned PCP 04/30/23 07/15/23 Radha Lomeli APRN DOCUMENT IMAGE TECHNICIAN [address] [place] [address] Assigned Heart and Vascular Provider 05/28/23 Jelena David OD [address] [facility] [place] [address] MD Ophthalmology 06/15/23 Pao Joseph, RN Personal Advocate & Liaison (PAL) Nurse 08/01/23 11/07/23 Esha Grimm PA-C [address] [place] [address] Assigned PCP 07/16/23 Valery Veronica PA-C [address] [place] [address] 817325 Physician Mohs Surgeon Dermatology 09/19/23 Rey Tay MD [address] [place] [address] 470315 MD Gastroenterology 09/20/23 Rocky Zepeda DO [address] [place] [address] 048795 Physician Gastroenterology 09/20/23 Philip Dumont MD [address] [place] [address] 735625 Physician Ophthalmology 09/22/23 Meredith Carrera PA-C [address] [place] [address] 727775 Assigned Gastroenterology Provider 11/01/23 Neil Kent MD [address] [place] [address] 757110 Dermatology 11/02/23 [place] [address] [place] [address] Neurological Surgery 12/26/23 Audrey Waite PA-C 500 [place] [address] Physician Mohs Surgeon Dermatology 02/28/24 Valery Veronica PA-C [address]145 [address] [place] [address] Physician Mohs Surgeon Dermatology 04/10/24 Herminia Hatch MD [address] [place] [address] Assigned Rheumatology Provider 07/02/24 Jelena David OD [address] [place] [address] [place] [address] Ophthalmology 08/30/24 [place] [address] [place] [address] Assigned Neuroscience Provider 09/30/24 Maru Man PA-C [address] [place] [address] Physician Mohs Surgeon Dermatology 10/03/24 Maru Man PA-C [address] [place] [address] Physician Mohs Surgeon Dermatology 10/22/24 documented as of this encounter
--- OUTSIDE RECORDS SUMMARY | 2024-11-21 05:11 | XMS_ITS | Encounter Summary ---
Author Organization [facility] Address [address] [place] [address] Care Team Providers Care Upholsterer Limousine And Hearse Name Role Phone Lita Oseguera Unavailable Unavailable Marija Edgar APRN HEALTH PSYCHOLOGIST Primary Care Provider + Marija Edgar APRN HEALTH PSYCHOLOGIST Unavailable [phone] Mynor Broussard MD Unavailable [phone] Keisha Dotson MD Unavailable Galo Burrell MD Unavailable Unavailable Diana Desir [facility] Unavailable Rain Galaviz PA-C Unavailable Summer Lara MD Unavailable [phone] Tavia Wyatt MD Unavailable Johnny Murillo MD Unavailable [phone] Erica Farrell APRN HEALTH PSYCHOLOGIST Unavailable Tavia Wyatt MD Unavailable Diana Desir [facility] Unavailable Rich Barrett MD Unavailable [phone] Neil Kent MD Unavailable Roney StoryM Unavailable Erica Farrell APRN HEALTH PSYCHOLOGIST Unavailable Diana Desir [facility] Unavailable Jelena David OD Unavailable [phone] Galo Burrell MD Unavailable Unavailable Livan Sharif MD Unavailable Livan Sharif MD Unavailable IsCatherine hobbs MD Unavailable + Valery Veronica PA-C Unavailable [phone] Catherine Cm MD Unavailable + Johnny Murillo MD Unavailable [phone] Brea Quinn GROUNDMAN HEALTH PSYCHOLOGIST Unavailable [phone] Brea Quinn GROUNDMAN HEALTH PSYCHOLOGIST Unavailable [phone] Jose Francisco Johnson MD Unavailable Livan Sharif MD Unavailable + IsCatherine hobbs MD Unavailable + Sydnie Martinez RN Unavailable Unavailable Alfonso Renteria MD Unavailable Esha Grimm PA-C Primary Care Provider Cheng Todd PA-C Unavailable Radha Lomeli GROUNDMAN HEALTH PSYCHOLOGIST Unavailable [phone] Jelena David OD Unavailable [phone] Pao Joseph RN Unavailable Unavailable Esha Grimm-C Unavailable [phone] Valery Veronica PA-C Unavailable [phone] Rey Tay MD Unavailable Rocky Zepeda DO Unavailable Philip Dumont MD Unavailable Byron Carreranahed Troncoso PA-C Unavailable [phone] Neil Kent MD Unavailable Juan Pablo Emmanuel MD Unavailable [phone] Ravindra Audrey R PA-C Unavailable [phone] Valery Veronica PA-C Unavailable [phone] Herminia Hatch MD Unavailable Jelena David OD Unavailable Juan Pablo Emmanuel MD Unavailable [phone] Maru Man-C Unavailable [phone] Maru Man-C Unavailable [phone] Jelena David OD Unavailable Encounter Details Date Type Department Care Team (Late st Contact Info) Description 10/28/2021 MyC Medical Advice [facility] [address] [place] [address] Erica Farrell APRN [facility] [address] [place] [address] Social History Tobacco Use Types Packs/Day Years [...] Answer Date Recorded PHQ-2 Score 2 09/22/2021 [facility] - [...] in a longterm (including now)? 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 Gender Identity Female 03/02/2021 5:45 PM [...] Description 11/21/2024 7:00 AM CDT Office Visit [address] [address] Maru Man PA-C [address] [place] [address] 12/20/2024 2:30 PM CDT Office Visit [facility] [address] [place] [address] Esha Grimm PA-C [address] [place] [address] 04/16/2025 11:00 AM CDT Virtual Visit [facility] [address] [place] [phone] Meredith Carrera PA-C [address] [place] [address] documented as of this encounter Visit Diagnoses Not on filedocumented in this encounter Additional Health Concerns Infection Onset Date Last Indicated Resolved Time Rule Out COVID-19 12/18/2021 12/18/2021 12/19/2021 11:34 AM CDT Rule Out COVID-19 02/24/2022 02/24/2022 02/25/2022 1:08 PM CDT Rule Out COVID-19 04/26/2022 04/26/2022 04/26/2022 6:47 AM CDT Rule Out COVID-19 05/17/2022 05/17/2022 05/17/2022 10:20 PM HIGH ENERGY FORMING EQUIPMENT OPERATOR Rule Out COVID-19 06/09/2022 06/09/2022 06/09/2022 9:35 AM HIGH ENERGY FORMING EQUIPMENT OPERATOR COVID-19 06/09/2022 06/09/2022 06/30/2022 11:4 1 PM HIGH ENERGY FORMING EQUIPMENT OPERATOR Rule Out COVID-19 11/10/2022 11/10/2022 11/11/2022 [...] documented as of this encounter Care Teams Upholsterer Limousine And Hearse Relationship Specialty Start Date End Date Marija Edgar APRN HEALTH PSYCHOLOGIST PCP - General Nurse Practitioner 04/30/20 04/14/23 Esha Grimm PA-C [address] [place] [address] PCP - General Family Medicine 05/04/23 Lita Oseguera Personal Advocate & Liaison (PAL) 02/28/20 03/27/23 Marija Edgar APRN HEALTH PSYCHOLOGIST Assigned PCP 06/08/20 04/29/23 Mynor Broussard MD [address] [address] Assigned Surgical Provider 06/01/20 11/28/21 Keisha Dotson MD [address] [place] [address] Assigned Neuroscience Provider 06/04/20 04/01/23 Galo Burrell MD Assigned Heart and Vascular Provider 10/05/20 04/02/22 [facility] [address] [place] [address] Pharmacist Pharmacist 04/17/21 Rain Galaviz PA-C [address] [place] [address] [place] [address] Physician Head Librarian Dermatology 04/28/21 Summer Lara MD [address] [place] [address] Assigned OBGYN Provider 05/31/21 Tavia Wyatt MD [address] [place] [address] Dermatology 07/14/21 Johnny Murillo MD [address] [facility] [address] [place] [address] Assigned Musculoskeletal Provider 08/30/21 03/17/22 Erica Farrell APRN HEALTH PSYCHOLOGIST [address] [facility] [address] [place] [address] Nurse Practitioner Cardiovascular Disease 09/09/21 Tavia Wyatt MD [address] [place] [address] Assigned Surgical Provider 11/29/21 05/07/22 Diana Desir, [facility] [address] [place] [address] Assigned MTM Pharmacist 01/02/22 Rich Barrett MD [address] [place] [address] Physician Ophthalmology 01/21/22 Neil Kent MD 500 [place] [address] Dermatology 02/24/22 Roney Story DPM [address] [facility] [address] [place] [address] Assigned Musculoskeletal Provider 03/20/22 08/13/22 Erica Farrell APRN HEALTH PSYCHOLOGIST [address] [place] [address] Assigned Heart and Vascular Provider 04/03/22 04/16/22 [facility] [address] [place] [address] Assigned MTM Pharmacist 04/07/22 Jelena David OD [address] [place] [address] Assigned Surgical Provider 05/08/22 10/08/22 Galo Burrell MD Assigned Heart and Vascular Provider 04/17/22 06/11/22 Livan Sharif MD [address] [place] [address]34975 Cardiovascular Disease 05/14/22 Livan Sharif MD [address] [place] 956265 Assigned Heart and Vascular Provider 06/12/22 07/23/22 Catherine Cm MD [address] [facility] [address] [place] [address] Cardiovascular Disease 07/21/22 Valery Veronica PAUcheC [address] [place] [address] 998655 Physician Head Librarian Dermatology 07/21/22 Catherine Cm MD [address] [facility] [address] [place] [address] Assigned Heart and Vascular Provider 07/24/22 11/05/22 Johnny Murillo MD [address] [place] [address] Assigned Musculoskeletal Provider 08/14/22 10/08/22 Brea Quinn APRN HEALTH PSYCHOLOGIST [address] [place] [address] 700875 Nurse Practitioner Dermatology 09/21/22 Brea Quinn APRN HEALTH PSYCHOLOGIST [address] [place] [address] [place] [address] Assigned Surgical Provider 10/09/22 05/01/24 [place] [address] [place] [address] Assigned Musculoskeletal Provider 10/09/22 05/01/24 Livan Sharif MD [address] [facility] [address] [place] [address] Assigned Heart and Vascular Provider 11/06/22 11/12/22 Catherine Cm MD [address] [place] [address] Assigned Heart and Vascular Provider 11/13/22 05/27/23 Sydnie Martinez, RN Personal Advocate & Liaison (PAL) Family Medicine 03/28/23 07/31/23 Alfonso Renteria MD 5775 [facility] 200 [place] [address] Assigned Neuroscience Provider 04/02/23 09/29/24 Cheng Todd PA-C [address] [place] [address] [id number] Assigned PCP 04/30/23 07/15/23 Radha Lomeli APRN HEALTH PSYCHOLOGIST [address] [place] [address] Assigned Heart and Vascular Provider 05/28/23 Jelena David OD [address] [place] [address] Ophthalmology 06/15/23 Pao Joseph, VJ Personal Advocate & Liaison (PAL) Nurse 08/01/23 11/07/23 Esha Grimm PA-C [address] [place] [address] Assigned PCP 07/16/23 Valery Veronica PA-C [address] [place] [address] Physician Head Librarian Dermatology 09/19/23 Rey Tay MD [address] [place] [address] MD Gastroenterology 09/20/23 Rocky Zepeda DO [address] [place] [address] Physician Gastroenterology 09/20/23 Philip Dumont MD [address] [place] [address] Physician Ophthalmology 09/22/23 Meredith Carrera PA-C [address] [place] [address] Assigned Gastroenterology Provider 11/01/23 Neil Kent MD [address] [address] Dermatology 11/02/23 [place] [address] [facility] [place], [place] 646907 Neurological Surgery 12/26/23 Audrey Wiate PA-C [address] [place] [address] Physician Head Librarian Dermatology 02/28/24 Valery eVronica PA-C [address]82 [place] [address] Physician Head Librarian Dermatology 04/10/24 Herminia Hatch MD [facility]5 [place] [address] Assigned Rheumatology Provider 07/02/24 Jelena David OD [address] [place] [address] [place] [address] Ophthalmology 08/30/24 [place] [address] [place] [address] Assigned Neuroscience Provider 09/30/24 Maru Man PA-C [address] [place] [address] Physician Head Librarian Dermatology 10/03/24 Maru Man PA-C [address] [place] [address] Physician Head Librarian Dermatology 10/22/24 Jelena David OD [address] [place] [address] [place] [address] Assigned Surgical Provider 10/31/24 documented as of this encounter
--- OUTSIDE RECORDS SUMMARY | 2024-11-21 05:11 | XMS_ITS | Encounter Summary ---
Author Organization [facility] Address [address] [place] [address] Care Team Providers Care Global Implementation Manager Name Role Phone Lita Oseguera Unavailable Unavailable Marija Edgar APRN MEDICAL ESTHETICIAN Primary Care Provider + Chanelle Mccann APRN CNM Unavailab le Kyara De La Fuente RN Unavailable [phone] Marija Edgar APRN MEDICAL ESTHETICIAN Unavailable [phone] Mynor Broussard MD Unavailable [phone] Keisha Dotson MD Unavailable Mary Mejia Unavailable Unavailable Stacey Briones BIOMEDICAL ELECTRONICS TECHNICIAN Unavailable Lesley Guillermo CHW Unavailable Mary Mejia Unavailable Unavailable Lita Oseguera Unavailable Unavailable Galo Burrell MD Unavailable Unavailable Cristina Wood Unavailable Lesley Guillermo CHW Unavailable Meredith Bedoya Unavailable Unavailable Cristina Wood Unavailable Diana Desir [facility] Unavailable Ruhland, Rain Lena PA-C Unavailable Summer Lara MD Unavailable Summer Lara MD Unavailable [phone] Summer Lara MD Unavailable [phone] Tavia Wyatt MD Unavailable [phone] Johnny Murillo MD Unavailable [phone] Erica Farrell APRN MEDICAL ESTHETICIAN Unavailable VikasTeresita H Unavailable Tavia Wyatt MD Unavailable [phone] Diana Desir [facility] Unavailable [phone] Rich Barrett MD Unavailable [phone] Neil Kent MD Unavailable Roney Story [facility] Unavailable Erica Farrell APRN MEDICAL ESTHETICIAN Unavailable Diana Desir [facility] Unavailable [phone] Jelena David OD Unavailable Galo Burrell MD Unavailable Unavailable Livan Sharif MD Unavailable Livan Sharif MD Unavailable Catherine Cm MD Unavailable + Valery Veronica PA-C Unavailable [phone] Catherine Cm MD Unavailable + Johnny Murillo MD Unavailable +[phone] Brea Quinn APRN MEDICAL ESTHETICIAN Unavailable [phone] Brea Quinn HOT KNIFE CUTTER MEDICAL ESTHETICIAN Unavailable [phone] Jose Francisco Johnson MD Unavailable Livan Sharif MD Unavailable Catherine Cm MD Unavailable + Sydnie Martinez RN Unavailable Unavailable Alfonso Renteria MD Unavailable [phone] Esha Grimm PA-C Primary Care Provider Cheng Todd PA-C Unavailable Radha Lomeli APRN, CNP Unavailable Jelena David OD Unavailable [phone] Pao Joseph RN Unavailable Unavailable Esha Grimm PA-C Unavailable [phone] Valery Veronica PA-C Unavailable Rey Tay [...] Info) Description 08/01/2020 [facility] [address] [place] [phone] Marija Edgar APRN MEDICAL ESTHETICIAN [address] [place] [address] Social History Tobacco Use Types Packs/Day [...] PM CDT Legal 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 No / Unsure 07/30/2020 4:53 PM FOUNTAIN WORKER documented as of this encounter Miscellaneous Notes * Telephone Encounter - Estephania Black RN - 08/01/2020 9:11 AM FOUNTAIN WORKER Schedule patient for Zio Patch. Detailed message left on phone and through [employer]. Estephania Black RN Flex TAIN WORKER * Telephone Encounter - Marija Egdar APRN CNP - 08/01/2020 8:46 AM FOUNTAIN WORKER Please help patient schedule her zio patch. This order has been in place since 05/2020 and a new order was placed this week. TAIN WORKER documented in this encounter Plan of Treatment Upcoming Encounters Date Type Department Care Team (Late st Contact Info) Description 11/21/2024 7:00 AM CDT Office Visit [address] [phone] Maru Man PA-C [address] [place] [address] 12/20/2024 2:30 PM CDT Office Visit [facility] [address] [place] [phone] Esha Grimm PA-C [address] [place] [address] 04/16/2025 11:00 AM CDT Virtual Visit [facility] [address] [place] [phone] Meredith Carrera PA-C [address] [place] [address] documented as of this encounter Visit Diagnoses Not on filedocumented in this encounter Additional Health Concerns Infection Onset Date Last Indicated Resolved Time Rule Out COVID-19 08/30/2020 08/30/2020 08/30/2020 5:05 PM FOUNTAIN WORKER Rule Out COVID-19 09/24/2020 09/24/2020 09/24/2020 9:24 AM CDT Rule Out COVID-19 11/05/2020 11/05/2020 11/06/2020 1:09 PM CDT Rule Out COVID-19 05/11/2021 05/11/2021 05/13/2021 10:18 AM CDT Rule Out COVID-19 07/13/2021 07/13/2021 07/14/2021 3:04 PM FOUNTAIN WORKER Rule Out COVID-19 07/18/2021 07/18/2021 07/20/2021 1:56 PM FOUNTAIN WORKER COVID-19 07/18/2021 07/18/2021 08/08/2021 11:3 9 PM FOUNTAIN WORKER Rule Out COVID-19 12/18/2021 12/18/2021 12/19/2021 11:34 AM CDT Rule Out COVID-19 02/24/2022 02/24/2022 02/25/2022 1:08 PM CDT Rule Out COVID-19 04/26/2022 04/26/2022 04/26/2022 6:47 AM CDT Rule Out COVID-19 05/17/2022 05/17/2022 05/17/2022 10:20 PM FOUNTAIN WORKER Rule Out COVID-19 06/09/2022 06/09/2022 06/09/2022 9:35 AM FOUNTAIN WORKER COVID-19 06/09/2022 06/09/2022 06/30/2022 11:4 1 PM FOUNTAIN WORKER Rule Out COVID-19 11/10/2022 11/10/2022 11/11/2022 12:17 PM CDT Rule Out COVID-19 03/07/2023 03/07/2023 03/07/2023 1:20 PM CDT Rule Out COVID-19 12/26/2023 12/26/2023 12/26/2023 9:50 AM CDT Rule Out COVID-19 04/09/2024 04/09/2024 04/10/2024 6:48 PM CDT Rule Out COVID-19 10/04/2024 10/04/2024 10/05/2024 9:42 AM CDT Rule Out COVID-19 11/20/2024 11/20/2024 Assessment Noted Time PHQ-9 Depression Total Score: 9 06/25/20 20 7:04 AM FOUNTAIN WORKER documented as of this encounter Care Teams Global Implementation Manager Relationship Specialty Start Date End Date Marija Edgar APRN CNP PCP - General Nurse Practitioner 04/30/20 04/14/23 Esha Grimm PAUcheC [address] [place] [phone] PCP - General Family Medicine 05/04/23 Lita Oseguera Personal Advocate & Liaison (PAL) 02/28/20 03/27/23 Chanelle Mccann APRN CNM [address] [facility] 200 [place], [place] 692667 Assigned OBGYN Provider 05/02/2005/09 Kyara De La Fuente, RN Specialty Feed Handler Neurology 06/04/20 03/05/21 Marija Edgar APRN MEDICAL ESTHETICIAN Assigned PCP 06/08/20 04/29/23 Mynor Broussard MD 6363 [facility] 500 [place], [place] 200205 Assigned Surgical Provider 06/01/20 11/28/21 Keisha Dotson MD 9 [place], [place] 314655 Assigned Neuroscience Provider 06/04/20 04/01/23 Mary Mejia Financial Resource Worker 08/07/20 08/21/20 Stacey Briones, [facility] Lead Feed Handler Primary Care - CC 08/11/2012/30 Lesley Guillermo, [facility] Community Health Worker 08/11/2010/01 Mary Mejia Financial Resource Worker 09/02/20 10/06/20 Lita Oseguera Personal Advocate & Liaison (PAL) Family Medicine 09/10/20 09/21/20 Galo Burrell MD Assigned Heart and Vascular Provider 10/05/20 04/02/22 Cristina Wood Financial Resource Worker 10/07/20 10/14/20 Lesley Guillermo, [facility] Community Health Worker 10/23/2012/30 Meredith Bedoya Financial Resource Worker 10/23/20 11/23/20 Cristina Wood Financial Resource Worker 02/09/21 02/09/21 Diana Desir, [facility] [address] [place] [address] Pharmacist Pharmacist 04/17/21 Rain Galaviz PA-C [address] [place] [address] [address] [place], [place] [phone] Physician Grain Manager Dermatology 04/28/21 Summer Lara MD [address] [place], [place] 535264 Assigned OBGYN Provider 05/10/2105/23 Summer Lara MD [address] [place], [place] 87740454 Assigned OBGYN Provider 05/31/21 2 Summer Lara MD [address] [place], [place] 56516454 Assigned OBGYN Provider 05/24/2105/30 Tavia Wyatt MD [address] [place], [place] 80[address] Dermatology 07/14/21 Johnny Murillo MD [address] [facility] [address] [place], [place] 659584 Assigned Musculoskeletal Provider 2/20/22 9/7/22 Erica Farrell APRN MEDICAL ESTHETICIAN 6405 [facility] [address] [place] 054165 Nurse Practitioner Cardiovascular Disease 09/09/21 Teresita Bean, [facility] [address] [facility] [address] [place] [id number] Pharmacist Pharmacist 09/24/21 09/29/21 Tavia Wyatt MD [address] [place], [place] 215810 Assigned Surgical Provider 11/29/21 05/07/22 [facility] [address] [place] [address] Assigned MTM Pharmacist 01/02/22 Rich Barrett MD [facility] [place] [address] Physician Ophthalmology 01/21/22 Neil Kent MD 500 [place], [place] 514065 Dermatology 02/24/22 Roney Story DPM [address] [facility] 300 [place], [place] 860817 Assigned Musculoskeletal Provider 03/20/22 08/13/22 Erica Farrell APRN MEDICAL ESTHETICIAN [address] [place] [address] Assigned Heart and Vascular Provider 04/03/22 04/16/22 Diana Desir, [facility] [address] [place], [place] [address] Assigned MTM Pharmacist 04/07/22 Jelena David OD [address] [place] [address] Assigned Surgical Provider 05/08/22 10/08/22 Galo Burrell MD Assigned Heart and Vascular Provider 04/17/22 06/11/22 Livan Sharif MD [address] [place], [place] [address] Cardiovascular Disease 05/14/22 Livan Sharif MD [address] [place], [place] 811305 Assigned Heart and Vascular Provider 06/12/22 07/23/22 Catherine Cm MD [address] [place] [address] Cardiovascular Disease 07/21/22 Valery Veronica, PA-C [address] [place] [address] Physician Grain Manager Dermatology 07/21/22 Catherine Cm MD [address] [place], [place] 187375 Assigned Heart and Vascular Provider 07/24/22 11/05/22 Johnny Murillo MD [address] [place] [address] Assigned Musculoskeletal Provider 08/14/22 10/08/22 Brea Quinn APRN MEDICAL ESTHETICIAN [address] [facility] [place] [address] Nurse Practitioner Dermatology 09/21/22 Brea Quinn APRN MEDICAL ESTHETICIAN 6401 [facility] [place], [place] 487362 Assigned Surgical Provider 10/09/22 05/01/24 [place] [address] [facility] 300 [place], [place] [address]097 Assigned Musculoskeletal Provider 10/09/22 05/01/24 Livan Sharif MD 6405 [facility] [address] [place] [address] Assigned Heart and Vascular Provider 11/06/22 11/12/22 Catherine Cm MD 6405 [facility] [address] [place] [address] Assigned Heart and Vascular Provider 11/13/22 05/27/23 Sydnie Martinez RN Personal Advocate & Liaison (PAL) Family Medicine 03/28/23 07/31/23 Alfonso Renteria MD 5775 [facility] 200 [place] [address] Assigned Neuroscience Provider 04/02/23 09/29/24 Cheng Todd PA-C [address] [place] [address] Assigned PCP 04/30/23 07/15/23 Radha Lomeli APRN MEDICAL ESTHETICIAN 6[address] [facility] [address] [place] [address] Assigned Heart and Vascular Provider 05/28/23 Jelena David OD [address] [place] [address] MD Ophthalmology 06/15/23 Pao Joseph, VJ Personal Advocate & Liaison (PAL) Nurse 08/01/23 11/07/23 Esha Grimm PA-C [address] [place] [address] Assigned PCP 07/16/23 Valery Veronica PA-C [address] [place] [address] 462045 Physician Grain Manager Dermatology 09/19/23 Rey Tay MD [address] [place] [address] 123675 Gastroenterology 09/20/23 Rocky Zepeda DO [address] [place] [address] 678295 Physician Gastroenterology 09/20/23 Philip Dumont MD [address] [place] [address] Physician Ophthalmology 09/22/23 Meredith Carrera PA-C [address] [place] [address] Assigned Gastroenterology Provider 11/01/23 Neil Kent MD [address] [place] [address] Dermatology 11/02/23 [place] [address] [place] [address] Neurological Surgery 12/26/23 Audrey Waite PA-C [address] [place] [address] Physician Grain Manager Dermatology 02/28/24 Valery Veronica PA-C [address] [place] [address] Physician Grain Manager Dermatology 04/10/24 Herminia Hatch MD [facility]5 [place], [place] [address] Assigned Rheumatology Provider 07/02/24 Jelena David OD [address] [place] [address] [place] [address] Ophthalmology 08/30/24 [place] [address] [place] [address] Assigned Neuroscience Provider 09/30/24 Maru Man PA-C [address] [place] [address] Physician Grain Manager Dermatology 10/03/24 Maru Man PA-C [address] [address] Physician Grain Manager Dermatology 10/22/24 Jelena David OD [address] [place] [address] [place] [address] Assigned Surgical Provider 10/31/24 documented as of this encounter
--- OUTSIDE RECORDS SUMMARY | 2024-11-21 05:11 | XMS_ITS | Encounter Summary ---
Author Organization [facility] Address [address] [place] [address] Care Team Providers Care Hand Violin Maker Name Role Phone Lita Oseguera Unavailable Unavailable Marija Edgar APRN DUST COLLECTOR TREATER Primary Care Provider + Chanelle Mccann APRN CNM Unavailab le Kyara De La Fuente RN Unavailable [phone] Marija Edgar APRN DUST COLLECTOR TREATER Unavailable Mynor Broussard MD Unavailable [phone] Keisha Dotson MD Unavailable Mary Mejia Unavailable Unavailable Stacey Briones POT ROOM SUPERVISOR Unavailable Lesley Guillermo CHW Unavailable Mary Mejia Unavailable Unavailable Lita Oseguera Unavailable Unavailable Galo Burrell MD Unavailable Unavailable Cristina Wood Unavailable Lesley Guillermo CHW Unavailable Meredith Bedoya Unavailable Unavailable Cristina Wood Unavailable Diana Desir [facility] Unavailable [phone] Ruhland, Rain Lena PA-C Unavailable Summer Lara MD Unavailable [phone] Summer Lara MD Unavailable [phone] Summer Lara MD Unavailable [phone] Tavia Wyatt MD Unavailable [phone] Johnny Murillo MD Unavailable [phone] Erica Farrell APRN DUST COLLECTOR TREATER Unavailable VikasTeresita H Unavailable Tavia Wyatt MD Unavailable [phone] Diana Desir [facility] Unavailable [phone] Rich Barrett MD Unavailable [phone] Neil Kent MD Unavailable Roney Story [facility] Unavailable Erica Farrell APRN DUST COLLECTOR TREATER Unavailable Diana Desir [facility] Unavailable [phone] Jelena David OD Unavailable Galo Burrell MD Unavailable Unavailable Livan Sharif MD Unavailable Livan Sharif MD Unavailable Catherine Cm MD Unavailable + Valery Veronica PA-C Unavailable [phone] Catherine Cm MD Unavailable + Johnny Murillo MD Unavailable [phone] Brea Quinn APRN DUST COLLECTOR TREATER Unavailable [phone] Brea Quinn CANTEEN OPERATOR DUST COLLECTOR TREATER Unavailable [phone] Jose Francisco Johnson MD Unavailable Livan Sharif MD Unavailable Catherine Cm MD Unavailable + Sydnie Martinez RN Unavailable Unavailable Alfonso Renteria MD Unavailable [phone] Esha Grimm PA-C Primary Care Provider Cheng Todd PA-C Unavailable Radha Lomeli APRN, CNP Unavailable Jelena David OD Unavailable Pao Joseph RN Unavailable Unavailable Esha Grimm PA-C Unavailable [phone] Valery Veronica PA-C Unavailable Rey Tay MD Unavailable Rocky Zepeda DO Unavailable Philip Dumont MD Unavailable Meredith Carrera PA-C Unavailable Neil Kent MD Unavailable Juan Pablo Emmanuel MD Unavailable Audrey Waite PA-C Unavailable Valery Veronica PA-C Unavailable Herminia Hatch MD Unavailable Jelena David OD Unavailable [phone] Juan Pablo Emmanuel MD Unavailable Maru Man PA-C Unavailable Maru Man PA-C Unavailable Jelena David OD Unavailable Encounter Details Date Type Department Care Team (Late st Contact Info) Description 07/29/2020 MyC Medical Advice [facility] Epilepsy Care [address], [address] [place] [address] Keisha Dotson MD [address] [place] [address] [phone] Social History Tobacco Use Types Packs/Day Years [...] PM CDT Legal Sex Female 4:13 AM MULTIPLE DRUM SANDER HELPER Gender Identity Female 03/02/2021 5:45 PM CDT Sexual Orientation Straight 02/28/2020 12 :51 AM CDT COVID-19 Exposure Response Date Recorded In the last month, have you been in contact with someone who was confirmed or suspected to have Coronavirus / COVID-19? No / Unsure 07/30/2020 4:53 PM MULTIPLE DRUM SANDER HELPER documented as of this encounter Plan of Treatment Upcoming Encounters Date Type Department Care Team (Late st Contact Info) Description 11/21/2024 7:00 AM CDT Office Visit [address] [phone] Maru Man PA-C [address] [place] [address] [phone] 12/20/2024 2:30 PM CDT Office Visit [facility] [address] [place] [address] Esha Grimm PA-C [id number] [place] [phone] 04/16/2025 11:00 AM CDT Virtual Visit [facility] Gastroenterology [address] [place] [phone] Meredith Carrera PA-C [address] [place] [address] documented as of this encounter Visit Diagnoses Not on filedocumented in this encounter Additional Health Concerns Infection Onset Date Last Indicated Resolved Time Rule Out COVID-19 07/30/2020 07/30/2020 07/30/2020 7:11 PM MULTIPLE DRUM SANDER HELPER Rule Out COVID-19 08/30/2020 08/30/2020 08/30/2020 5:05 PM MULTIPLE DRUM SANDER HELPER Rule Out COVID-19 09/24/2020 09/24/2020 09/24/2020 9:24 AM CDT Rule Out COVID-19 11/05/2020 11/05/2020 11/06/2020 1:09 PM CDT Rule Out COVID-19 05/11/2021 05/11/2021 05/13/2021 10:18 AM CDT Rule Out COVID-19 07/13/2021 07/13/2021 07/14/2021 3:04 PM MULTIPLE DRUM SANDER HELPER Rule Out COVID-19 07/18/2021 07/18/2021 07/20/2021 1:56 PM MULTIPLE DRUM SANDER HELPER COVID-19 07/18/2021 07/18/2021 08/08/2021 11:3 9 PM MULTIPLE DRUM SANDER HELPER Rule Out COVID-19 12/18/2021 12/18/2021 12/19/2021 11:34 AM CDT Rule Out COVID-19 02/24/2022 02/24/2022 02/25/2022 1:08 PM CDT Rule Out COVID-19 04/26/2022 04/26/2022 04/26/2022 6:47 AM CDT Rule Out COVID-19 05/17/2022 05/17/2022 05/17/2022 10:20 PM MULTIPLE DRUM SANDER HELPER Rule Out COVID-19 06/09/2022 06/09/2022 06/09/2022 9:35 AM MULTIPLE DRUM SANDER HELPER COVID-19 06/09/2022 06/09/2022 06/30/2022 11:4 1 PM MULTIPLE DRUM SANDER HELPER Rule Out COVID-19 11/10/2022 11/10/2022 11/11/2022 12:17 PM CDT Rule Out COVID-19 03/07/2023 03/07/2023 03/07/2023 1:20 PM CDT Rule Out COVID-19 12/26/2023 12/26/2023 12/26/2023 9:50 AM CDT Rule Out COVID-19 04/09/2024 04/09/2024 04/10/2024 6:48 PM CDT Rule Out COVID-19 10/04/2024 10/04/2024 10/05/2024 9:42 AM CDT Rule Out COVID-19 11/20/2024 11/20/2024 Assessment Noted Time PHQ-9 Depression Total Score: 9 06/25/20 7:04 AM MULTIPLE DRUM SANDER HELPER documented as of this encounter Care Teams Hand Violin Maker Relationship Specialty Start Date End Date Marija Edgar APRN DUST COLLECTOR TREATER PCP - General Nurse Practitioner 04/30/20 04/14/23 Esha Grimm PA-C [address] [place] [phone] PCP - General Family Medicine 05/04/23 Lita Oseguera Personal Advocate & Liaison (PAL) 02/28/20 03/27/23 Chanelle Mccann APRN CNM [address] [place] [address] 6[address] Assigned OBGYN Provider 05/02/2005/09 Kyara De La Fuente, RN Specialty Manufacturing Intern Neurology 06/04/20 03/05/21 Marija Edgar APRN DUST COLLECTOR TREATER Assigned PCP 06/08/20 04/29/23 Mynor Broussard MD [address] [facility] [address] [place], [place] 282695 Assigned Surgical Provider 06/01/20 11/28/21 Keisha Dotson MD [address] [place], [place] 113465 Assigned Neuroscience Provider 06/04/20 04/01/23 Mary Mejia Financial Resource Worker 08/07/20 08/21/20 Stacey Briones, [facility] Lead Manufacturing Intern Primary Care - CC 08/11/2012/30 Lesley Guillermo, [facility] Community Health Worker 08/11/2010/01 Mary Mejia Financial Resource Worker 09/02/20 10/06/20 Lita Oseguera Personal Advocate & Liaison (PAL) Family Medicine 09/10/20 09/21/20 Galo Burrell MD Assigned Heart and Vascular Provider 10/05/20 04/02/22 Cristina Wood Financial Resource Worker 10/07/20 10/14/20 Lesley Guillermo, [facility] Community Health Worker 10/23/2012/30 Meredith Bedoya Financial Resource Worker 10/23/20 11/23/20 Cristina Wood Financial Resource Worker 02/09/21 02/09/21 Diana Desir, [facility] [address] [place] [address] Pharmacist Pharmacist 04/17/21 Rain Galaviz PA-C [address] [place] [address] [place] [address] Physician Projection Technician Dermatology 04/28/21 Summer Lara MD [address] [place] [place] [address] Assigned OBGYN Provider 05/10/2105/23 Summer Lara MD [address] [place] [address] Assigned OBGYN Provider 05/31/21 2 Summer Lara MD [address] [place] [place] [address] Assigned OBGYN Provider 05/24/2105/30 Tavia Wyatt MD [address] [place] [address] Dermatology 07/14/21 Johnny Murillo MD [address] [place] [address] Assigned Musculoskeletal Provider 08/30/21 03/17/22 Erica Farrell APRN DUST COLLECTOR TREATER [address] [facility] [address] [place] [address] Nurse Practitioner Cardiovascular Disease 09/09/21 Teresita Bean, [facility] [address] [place] [address] Pharmacist Pharmacist 09/24/21 09/29/21 Tavia Wyatt MD [address] [place] [address] Assigned Surgical Provider 11/29/21 05/07/22 Diana Desir, [facility] [address] [place] [address] Assigned MTM Pharmacist 01/02/22 Rich Barrett MD [address] [place] [address] Physician Ophthalmology 01/21/22 Neil Kent MD [address] [place] [address] Dermatology 02/24/22 Roney Story DPM [address] [facility] [address] [place] [address] Assigned Musculoskeletal Provider 03/20/22 08/13/22 Erica Farrell APRN DUST COLLECTOR TREATER [address] [place] [address] Assigned Heart and Vascular Provider 04/03/22 04/16/22 Diana Desir, [facility] [address] [place] [address] Assigned MTM Pharmacist 04/07/22 Jelnea David OD [address] [place] [address] [place] [address] Assigned Surgical Provider 05/08/22 10/08/22 Galo Burrell MD Assigned Heart and Vascular Provider 04/17/22 06/11/22 Livan Sharif MD [address] [place] 768105 Cardiovascular Disease 05/14/22 Livan Sharif MD [address] [place] 483065 Assigned Heart and Vascular Provider 06/12/22 07/23/22 Catherine Cm MD [address] [facility] 299555 Cardiovascular Disease 07/21/22 Valery Veronica PA-C [address] [place] [address] 342985 Physician Projection Technician Dermatology 07/21/22 Catherine Cm MD [address] [place] [address]ENMA [place] 906675 Assigned Heart and Vascular Provider 07/24/22 11/05/22 Johnny Murillo MD [address] [place] [address] 858134 Assigned Musculoskeletal Provider 08/14/22 10/08/22 Brea Quinn APRN DUST COLLECTOR TREATER [address] [place] [address] 865185 Nurse Practitioner Dermatology 09/21/22 Brea Quinn APRN DUST COLLECTOR TREATER [address] [place] [address] [place] 944922 Assigned Surgical Provider 10/09/22 05/01/24 [place] [address] [place] [address] Assigned Musculoskeletal Provider 10/09/22 05/01/24 Livan Sharif MD [address] [place] [address] Assigned Heart and Vascular Provider 11/06/22 11/12/22 Catherine Cm MD [address] [place] [address] Assigned Heart and Vascular Provider 11/13/22 05/27/23 Sydnie Martinez RN Personal Advocate & Liaison (PAL) Family Medicine 03/28/23 07/31/23 Alfonso Renteria MD [address] [facility] 200 [place] [address] Assigned Neuroscience Provider 04/02/23 09/29/24 Cheng Todd PA-C [address] [place] [address] 939[address] Assigned PCP 04/30/23 07/15/23 Radha Lomeli APRN DUST COLLECTOR TREATER [address] [place] [address] Assigned Heart and Vascular Provider 05/28/23 Jelena David OD [address] [place] [address] MD Ophthalmology 06/15/23 Pao Joseph, RN Personal Advocate & Liaison (PAL) Nurse 08/01/23 11/07/23 Esha Grimm PA-C [address] [place] [phone] Assigned PCP 07/16/23 Valery Veronica PA-C [address] [place] [address] 799555 Physician Projection Technician Dermatology 09/19/23 Rey Tay MD [address] [place] [address] 735535 MD Gastroenterology 09/20/23 Rocky Zepeda DO [address] [place] [address] 999155 Physician Gastroenterology 09/20/23 Philip Dumont MD [address] [place] [address] 628955 Physician Ophthalmology 09/22/23 Meredith Carrera PA-C [address] [place] [address] 309275 Assigned Gastroenterology Provider 11/01/23 Neil Kent MD [address] [place] [address] 719640 Dermatology 11/02/23 [place] [address] [place] [address] Neurological Surgery 12/26/23 Audrey Waite PA-C [address] [place] [address] Physician Projection Technician Dermatology 02/28/24 Valery Veronica PA-C [address] [place] [address] Physician Projection Technician Dermatology 04/10/24 Herminia Hatch MD [address] [place] [address] Assigned Rheumatology Provider 07/02/24 Jelena David OD [address] [place] [address] [place] [address] Ophthalmology 08/30/24 [place] [address] [place] [address] Assigned Neuroscience Provider 09/30/24 Maru Man PA-C [address] [place] [address] Physician Projection Technician Dermatology 10/03/24 Maru Man PA-C [address] [place] [address] Physician Projection Technician Dermatology 10/22/24 Jelena David OD [address] [place] [address] [place] [address] Assigned Surgical Provider 10/31/24 documented as of this encounter
--- OUTSIDE RECORDS SUMMARY | 2024-11-21 05:12 | XMS_ITS | Encounter Summary ---
Author Organization [facility] Address [address] [place] [address] Care Team Providers Care Cardiology Nurse Practitioner Name Role Phone Diana Desir [facility] Unavailable Rain Galaviz PA-C Unavailable Tavia Wyatt MD Unavailable Erica Farrell APRN CODE ENFORCEMENT OFFICER Unavailable Rich Barrett MD Unavailable [phone] Neil Kent MD Unavailable Diana Desir [facility] Unavailable Livan Sharif MD Unavailable Catherine Cm MD Unavailable + Valery Veronica PA-C Unavailable Brea Quinn OFFICE RUNNER CODE ENFORCEMENT OFFICER Unavailable Brea Quinn OFFICE RUNNER CODE ENFORCEMENT OFFICER Unavailable Jose rFancisco Johnson MD Unavailable Alfonso Renteria MD Unavailable [phone] Esha Grimm PA-C Primary Care Provider [phone] Radha Lomeli APRN CODE ENFORCEMENT OFFICER Unavailable Jelena David OD Unavailable [phone] Esha Grimm PA-C Unavailable [phone] Valery Veronica PA-C Unavailable Rey Tay [...] Cardiac Event Monitor Adult Pediatric Lomeli, December, OFFICE RUNNER CODE ENFORCEMENT OFFICER [address] [place] [address] Phone: tel: fax: [facility] Specialty Care [address] [facility] [address] [place] [address] Phone: tel: fax: Referral ID Status Reason Start Date Expiration Date Visits Re quested Visits Authorized [id number] Closed 03/07/2024 03/07/2025 1 1 Encounter Details Date Type Department Care Team (Late st Contact Info) Description 03/07/2024 Telephone [place] [id number] [facility] [address] [place] [address] Carley Myles RN Social History [...] week 05/07/2024 How often do you attend [facility]? 1 to 4 times [...] PHQ-2 Score 1 10/24/2024 [facility] [place] of Occupat ional Health - Occupational Stress [...] exercise at this level? 20 min 05/07/2024 [place] Depression Scale Answer Date Recorded [place] Depression Score 5 01/14/2021 Last EPDS [...] in an overnight fdc, or couch-surfing.) Yes 05/07/2024 Are you worried [...] PM CDT Legal Sex Female 4:13 AM WINDING INSPECTOR Gender Identity Female 03/02/2021 5:45 PM [...] get event monitor placed. Pt requested a production control scheduler to call her instead of her reaching out. Will route to scheduling team. Orders in EPIC. Carley ZABALA [facility] * Telephone Encounter [...] Radha Lomeli CNP for review. Carley ZABALA [facility] Heart [facility] documented in this encounter Plan of Treatment Upcoming Encounters Date Type Department Care Team (Late st Contact Info) Description 11/21/2024 7:00 AM CDT Office Visit [facility] [place] [address] [phone] Maru Man PA-C [address] [address] 12/20/2024 2:30 PM CDT Office Visit [facility] [id number] [place] [phone] Esha Grimm PA-C [id number] [place] [phone] 04/16/2025 11:00 AM CDT Virtual Visit [facility] Gastroenterology Clinic [address] [phone] Meredith Carrera PA-C [address] [place] [address] documented as of this encounter Results * [...] as of this encounter Care Teams Cardiology Nurse Practitioner Relationship Specialty Start Date End Date Esha Grimm PA-C [address] [place] [phone] PCP - General Family Medicine 05/04/23 Diana Desir, [facility] [address] [place] [address] Pharmacist Pharmacist 04/17/21 Rain Galaviz PA-C [address] [place] [address] [address] [facility] [place] [address] Physician Shank Sorter Dermatology 04/28/21 Tavia Wyatt MD [address] [place] [address] [address] [facility] [place] [address] Dermatology 07/14/21 Erica Farrell APRN CODE ENFORCEMENT OFFICER [address] [place] [address] Nurse Practitioner Cardiovascular Disease 09/09/21 Rich Barrett MD [address] [place] [address] Physician Ophthalmology 01/21/22 Neil Kent MD 500 [place] [address] Dermatology 02/24/22 Diana Desir, [facility] [address] [place], [place] 781816 Assigned MTM Pharmacist 04/07/22 Livan Sharif MD [address] [facility] [address] [email or web address]00 [place], [place] 1049[address] Cardiovascular Disease 05/14/22 Catherine Cm MD [address] [facility] [address] [facility] [address] [place], [place] 547515 Cardiovascular Disease 07/21/22 Valery Veronica, PA-C [address] [place] [address] 905735 Physician Shank Sorter Dermatology 07/21/22 Brea Quinn APRN CODE ENFORCEMENT OFFICER [address] [place], [place] [phone] Nurse Practitioner Dermatology 09/21/22 Brea Quinn APRN CODE ENFORCEMENT OFFICER [address] [place] [address] 867792 Assigned Surgical Provider 10/09/22 05/01/24 [place] [address] 722827 Assigned Musculoskeletal Provider 10/09/22 05/01/24 Alfonso Renteria MD [address] [facility] 200 [place], [place] [phone] Assigned Neuroscience Provider 04/02/23 09/29/24 Radha Lomeli APRN CODE ENFORCEMENT OFFICER [address] [facility] [address] [place] [address] Assigned Heart and Vascular Provider 05/28/23 Jelena David OD [address] [facility] [address] [place] [id number] MD Ophthalmology 06/15/23 Esha Grimm PA-C [address] [place] [phone] Assigned PCP 07/16/23 Valery Veronica PA-C [address] [place] [address] 568325 Physician Shank Sorter Dermatology 09/19/23 Rey Tay MD [address] [place] [address] 013055 Gastroenterology 09/20/23 Rocky Zepeda DO 9 [place], [place] 149305 Physician Gastroenterology 09/20/23 Philip Dumont MD [address] [place] [address] 381665 Physician Ophthalmology 09/22/23 Meredith Carrera PA-C [address] [place] [address] 352535 Assigned Gastroenterology Provider 11/01/23 Neil Kent MD [address] [place] [address] Dermatology 11/02/23 [place] [address] [place] [address]26 Neurological Surgery 12/26/23 Audrey Waite PA-C [address] [place] [address] Physician Shank Sorter Dermatology 02/28/24 Valery Veronica PA-C 94[address]35 [address] [place] [address] Physician Shank Sorter Dermatology 04/10/24 Herminia Hatch MD [address] [place] [address] [phone] Assigned Rheumatology Provider 07/02/24 Jelena David OD [address] [place] [address] [place] [address] Ophthalmology 08/30/24 [place] [address] [place] [address] Assigned Neuroscience Provider 09/30/24 Maru Man PA-C [address] [place] [address] Physician Shank Sorter Dermatology 10/03/24 Maru Man PA-C [address] [place] [address] Physician Shank Sorter Dermatology 10/22/24 documented as of this encounter
--- OUTSIDE RECORDS SUMMARY | 2024-11-21 05:12 | XMS_ITS | Encounter Summary ---
Author Organization [facility] Address [address] [place] [address] Care Team Providers Care Barrel Planer Name Role Phone Diana Desir [facility] Unavailable Rain Galaviz PA-C Unavailable Tavia Wyatt MD Unavailable Erica Farrell APRN PROGRAM CHECKER Unavailable Rich Barrett MD Unavailable [phone] Neil Kent MD Unavailable Diana Desir [facility] Unavailable Livan Sharif MD Unavailable Catherine Cm MD Unavailable + Valery Veronica PA-C Unavailable Brea Quinn PRODUCT HANDLER PROGRAM CHECKER Unavailable [phone] Brea Quinn PRODUCT HANDLER PROGRAM CHECKER Unavailable Jose Francisco Johnson MD Unavailable Alfonso Renteria MD Unavailable [phone] Esha Grimm PA-C Primary Care Provider Radha Lomeli APRN PROGRAM CHECKER Unavailable Jelena David OD Unavailable [phone] Esha Grimm PA-C Unavailable [phone] JeremíasValery damon PA-C Unavailable Rey Tay MD Unavailable Rocky Zepeda DO Unavailable Philip Dumont MD Unavailable [phone] Meredith Carrera PA-C Unavailable [phone] Neil Kent MD Unavailable Juan Pablo Emmanuel MD Unavailable Audrey Waite PA-C Unavailable [phone] JeremíasValery damon PA-C Unavailable [phone] Herminia Hatch MD Unavailable Jelena David OD Unavailable [phone] Juan Pablo Emmanuel MD Unavailable Maru Man PA-C Unavailable Maru Man PA-C Unavailable Jelena David OD Unavailable Encounter Details Date Type Department Care Team (Late st Contact Info) Description 03/05/2024 [facility] [address] [place] [address] Rebecca Moctezuma Social History Tobacco [...] Score 1 02/07/2024 [facility] [...] exercise at this level? 30 min 03/10/2023 [place] Depression Scale Answer Date Recorded [place] Depression Score 5 01/14/2021 Last EPDS [...] CDT Legal Sex Female 4:13 AM FRUIT RAISER Gender Identity Female 03/02/2021 5:45 PM CDT Sexual Orientation Straight 02/28/2020 12 :51 AM CDT documented as of this encounter Plan of Treatment Upcoming Encounters Date Type Department Care Team (Late st Contact Info) Description 11/21/2024 7:00 AM CDT Office Visit [facility] [address] [address] Maru Man PA-C [address] [address] 12/20/2024 2:30 PM CDT Office Visit [address] [place] [phone] Esha Grimm PA-C [address] [place] [address] 04/16/2025 11:00 AM CDT Virtual Visit [facility] [address] 4th [place] [phone] Meredith Carrera PA-C [address] [place] [address] documented as of this encounter Visit Diagnoses [...] as of this encounter Care Teams Barrel Planer Relationship Specialty Start Date End Date Esha Grimm PA-C [address] [place] [address] PCP - General Family Medicine 05/04/23 Diana Desir, [facility] 3033 [place] [address] Pharmacist Pharmacist 04/17/21 Rain Galaviz PA-C [address] [place] [address] [address] [facility] [facility] [address] Physician Credit Card Associate Dermatology 04/28/21 Tavia Wyatt MD [address] [place] [address] [address] [place], [place] [phone] Dermatology 07/14/21 Erica Farrell APRN PROGRAM CHECKER [address] [place], [place] 749[address] Nurse Practitioner Cardiovascular Disease 09/09/21 Rich Barrett MD [address] [place], [place] [address] Physician Ophthalmology 01/21/22 Neil Kent MD [address] [place], [place] 145945 Dermatology 02/24/22 [facility] 3033 [place], [place] 549296 Assigned [place] Pharmacist 04/07/22 Livan Sharif MD [address] [place] [address] Cardiovascular Disease 05/14/22 Catherine Cm MD [address] [place] [address] Cardiovascular Disease 07/21/22 Valery Veronica, PA-C [address] [place] [address] Physician Credit Card Associate Dermatology 07/21/22 Brea Quinn APRN PROGRAM CHECKER 500 [place] [address] Nurse Practitioner Dermatology 09/21/22 Brea Quinn APRN PROGRAM CHECKER [address] [facility] [place] [address] Assigned Surgical Provider 10/09/22 05/01/24 [place] [address] [facility] [address] [place] [address] Assigned Musculoskeletal Provider 10/09/22 05/01/24 Alfonso Renteria MD 5775 [facility] 200 [place], [place] 575886 Assigned Neuroscience Provider 04/02/23 09/29/24 Radha Lomeli APRN PROGRAM CHECKER 6405 [facility] [address] [place], [place] 0[address]285 Assigned Heart and Vascular Provider 05/28/23 Jelena David OD [address] [facility] [place] [address] Ophthalmology 06/15/23 Esha Grimm PA-C [address] [place] [address] Assigned PCP 07/16/23 Valery Veronica PA-C 9 [place] [address] Physician Credit Card Associate Dermatology 09/19/23 Rey Tay MD [address] [place] [address] MD Gastroenterology 09/20/23 Rocky Zepeda DO [address] [place] [address] Physician Gastroenterology 09/20/23 Philip Dumont MD [address] [place] [address] Physician Ophthalmology 09/22/23 Meredith Carrera PA-C [address] [place] [address] Assigned Gastroenterology Provider 11/01/23 Neil Kent MD [address] [place] [address] Dermatology 11/02/23 [place] [address] [address] Neurological Surgery 12/26/23 Audrey Waite PA-C [address] [place] [address] Physician Credit Card Associate Dermatology 02/28/24 Valery Veronica PA-C [address] [place] [address] Physician Credit Card Associate Dermatology 04/10/24 Herminia Hatch MD [address] [place] [address] Assigned Rheumatology Provider 07/02/24 Jelena David OD 3305 [facility] [place] [address] Ophthalmology 08/30/24 [place] [address] [address] [place] [address] Assigned Neuroscience Provider 09/30/24 Maru Man PA-C [address] [place] [address] Physician Credit Card Associate Dermatology 10/03/24 Maru Man PA-C [address] [place] [address] Physician Credit Card Associate Dermatology 10/22/24 Jelena David OD 3305 [facility] [place] [address] Assigned Surgical Provider 10/31/24 documented as of this encounter
--- OUTSIDE RECORDS SUMMARY | 2024-11-21 05:12 | XMS_ITS | Encounter Summary ---
Author Organization [place] Address [address] [place] [address] Care Team Providers Care Art Gallery Internship Name Role Phone Lita Oseguera Unavailable Unavailable Marija Edgar APRN RADIOLOGY ASSISTANT Primary Care Provider + Marija Edgar APRN RADIOLOGY ASSISTANT Unavailable [phone] Keisha Dotson MD Unavailable Diana Desir [facility] Unavailable [phone] Rain Galaviz PA-C Unavailable Tavia Wyatt MD Unavailable Erica Farrell APRN RADIOLOGY ASSISTANT Unavailable Rich Barrett MD Unavailable [phone] Neil Kent MD Unavailable Diana Desir [facility] Unavailable Livan Sharif MD Unavailable Catherine Cm MD Unavailable + Valery Veronica PA-C Unavailable Brea Quinn SET UP PERSON RADIOLOGY ASSISTANT Unavailable Brea Quinn SET UP PERSON RADIOLOGY ASSISTANT Unavailable Jose Francisco Johnson MD Unavailable Catherine Cm MD Unavailable + Sydnie Martinez RN Unavailable Unavailable Alfonso Renteria MD Unavailable [phone] Esha Grimm PA-C Primary Care Provider Cheng Todd PA-C Unavailable Armani Radha Stovall ARLENE RADIOLOGY ASSISTANT Unavailable Jelena David OD Unavailable Pao Joseph RN Unavailable Unavailable Esha Grimm PA-C Unavailable [phone] Valery Veronica PA-C Unavailable Rey Tay MD Unavailable Rocky Zepeda DO Unavailable Philip Dumont MD Unavailable [phone] Meredith Carrera PA-C Unavailable [phone] Neil Kent MD Unavailable Juan Pablo Emmanuel MD Unavailable Audrey Waite PA-C Unavailable Valery Veronica PA-C Unavailable Herminia Hatch MD Unavailable Jelena David OD Unavailable Juan Pablo Emmanuel MD Unavailable Maru Man PA-C Unavailable [phone] Maru Man PA-C Unavailable [phone] Jelena David OD Unavailable Encounter Details Date Type Department Care Team (Late st Contact Info) Description 01/28/2023 [facility] Medical Advice [facility] Heart [facility] 6[address] [facility] [address] [place] [address] Margaret Rendon, RN [...] How often do you attend pentecostal or advent serv ices? Never 09/22/2021 Do [...] Answer Date Recorded PHQ-2 Score 1 10/11/2022 [facility] - Occupational Stress Questionnaire Answer Date [...] in a detention (including now)? No 09/22/2021 [place] Depression Scale Answer Date Recorded [place] [...] 7:00 AM CDT Office Visit [facility] [address] [phone] Maru Man PA-C [address] [place] [address] 977990 12/20/2024 2:30 PM CDT Office Visit [facility] [address] [place] [address] Esha Grimm PA-C [address] [place] [phone] 04/16/2025 11:00 AM CDT Virtual Visit [facility] [address] 4th [place] [phone] Meredith Carrera PA-C [address] [place] [address] 915135 documented as of this encounter Visit Diagnoses [...] documented as of this encounter Care Teams Art Gallery Internship Relationship Specialty Start Date End Date Marija Edgar APRN RADIOLOGY ASSISTANT PCP - General Nurse Practitioner 04/30/20 04/14/23 Esha Grimm PA-C [address] [place] [address] PCP - General Family Medicine 05/04/23 Lita Oseguera Personal Advocate & Liaison (PAL) 02/28/20 03/27/23 Marija Edgar APRN RADIOLOGY ASSISTANT Assigned PCP 06/08/20 04/29/23 Keisha Dotson MD [address] [place], [place] 473875 Assigned Neuroscience Provider 06/04/20 04/01/23 Diana Desir [facility] 30[address] [place], [place] [phone] Pharmacist Pharmacist 04/17/21 Rain Galaviz PA-C [address] [place] [address] [place] [address] Physician Hop Sorter Dermatology 04/28/21 Tavia Wyatt MD [address] [place] [address] [place] [address] Dermatology 07/14/21 Erica Farrell APRN RADIOLOGY ASSISTANT [address] [place] [address] Nurse Practitioner Cardiovascular Disease 09/09/21 Rich Barrett MD [address] [place] 801395 Physician Ophthalmology 01/21/22 Neil Kent MD [address] [place] [address] 197385 Dermatology 02/24/22 Diana Desir, [facility] [address] [place], [place] 017026 Assigned [place] Pharmacist 04/07/22 Livan Sharif MD [address] 00 [place] 350455 Cardiovascular Disease 05/14/22 Catherine Cm MD [address] [facility]00 [place] 132845 Cardiovascular Disease 07/21/22 Valery Veronica, PA-C 909 [place], [place] 427305 Physician Hop Sorter Dermatology 07/21/22 Brea Quinn APRN RADIOLOGY ASSISTANT 500 [place], [place] 099295 Nurse Practitioner Dermatology 09/21/22 Brea Quinn APRN RADIOLOGY ASSISTANT 6401 [facility] [place] [address] Assigned Surgical Provider 10/09/22 05/01/24 [place] [address] [facility] [address] [place], [place] 792707 Assigned Musculoskeletal Provider 10/09/22 05/01/24 Catherine Cm MD [address] [facility] [address] [place] [address] Assigned Heart and Vascular Provider 11/13/22 05/27/23 Sydnie Martinez RN Personal Advocate & Liaison (PAL) Family Medicine 03/28/23 07/31/23 Alfonso Renteria MD 5775 [facility] 200 [place] [address] Assigned Neuroscience Provider 04/02/23 09/29/24 Cheng Todd PA-C [address] [place] [address] [phone] Assigned PCP 04/30/23 07/15/23 Radha Lomeli APRN RADIOLOGY ASSISTANT [address] [place] [address] Assigned Heart and Vascular Provider 05/28/23 Jelena David OD [address] [facility] [place] [address] MD Ophthalmology 06/15/23 Pao Joseph, RN Personal Advocate & Liaison (PAL) Nurse 08/01/23 11/07/23 Esha Grimm PA-C [address] [place] [phone] Assigned PCP 07/16/23 Valery Veronica PA-C [address] [place] [address] 637315 Physician Hop Sorter Dermatology 09/19/23 Rey Tay MD [address] [place] [address] 186835 MD Gastroenterology 09/20/23 Rocky Zepeda DO [address] [place] [address] 239235 Physician Gastroenterology 09/20/23 Philip Dumont MD [address] [place] [address] 865085 Physician Ophthalmology 09/22/23 Meredith Carrera PA-C [address] [place] [address] 177605 Assigned Gastroenterology Provider 11/01/23 Neil Kent MD [address] [address] Dermatology 11/02/23 [place] [address] [place] [address] Neurological Surgery 12/26/23 Audrey Waite PA-C 500 [place] [address] Physician Hop Sorter Dermatology 02/28/24 Valery Veronica PA-C 534181 [address] [place] [address] Physician Hop Sorter Dermatology 04/10/24 Herminia Hatch MD [address] [place] [address] [id number] Assigned Rheumatology Provider 07/02/24 Jelena David, SONJA [address] [place] [address] [place] [address] Ophthalmology 08/30/24 [place] [address] [place] [address] Assigned Neuroscience Provider 09/30/24 Maru Man PA-C [address] [place] [address] Physician Hop Sorter Dermatology 10/03/24 Maru Man PA-C [address] [place] [address] Physician Hop Sorter Dermatology 10/22/24 Jelena David OD [address] [place] [address] [place] [address] Assigned Surgical Provider 10/31/24 documented as of this encounter
--- OUTSIDE RECORDS SUMMARY | 2024-11-21 05:12 | XMS_ITS | Encounter Summary ---
Author Organization [place] Address [address] [place] [address] Care Team Providers Care Director Human Services Name Role Phone Lita Oseguera Unavailable Unavailable Marija Edgar APRN BASKETBALL PLAYER Primary Care Provider + Marija Edgar APRN BASKETBALL PLAYER Unavailable Mynor Broussard MD Unavailable [phone] Keisha Dotson MD Unavailable Galo Burrell MD Unavailable Unavailable Diana Desir [facility] Unavailable Rain Galaviz PA-C Unavailable Summer Lara MD Unavailable [phone] Tavia Wyatt MD Unavailable Johnny Murillo MD Unavailable Erica Farrell APRN BASKETBALL PLAYER Unavailable Teresita Bean [facility] Unavailable Tavia Wyatt MD Unavailable Diana Desir [facility] Unavailable Rich Barrett MD Unavailable [phone] Neil Kent MD Unavailable Roney Story DPM Unavailable Erica Farrell WATER SERVICE DISPATCHER BASKETBALL PLAYER Unavailable Diana Desir [facility] Unavailable [phone] Jelena David OD Unavailable Galo Burrell MD Unavailable Unavailable Livan Sharif MD Unavailable + Livan Sharif MD Unavailable + Catherine Cm MD Unavailable + Valery Veronica PA-C Unavailable [phone] Catherine Cm MD Unavailable + Johnny Murillo MD Unavailable [phone] Brea Quinn WATER SERVICE DISPATCHER BASKETBALL PLAYER Unavailable [phone] Brea Quinn WATER SERVICE DISPATCHER BASKETBALL PLAYER Unavailable [phone] Jose Francisco Johnson MD Unavailable Livan Sharif MD Unavailable + IsCatherine hobbs MD Unavailable + Sydnie Martinez RN Unavailable Unavailable Alfonso Renteria MD Unavailable Esha Grimm-C Primary Care Provider Cheng Todd PA-C Unavailable Radha Lomeli WATER SERVICE DISPATCHER BASKETBALL PLAYER Unavailable [phone] Jelena David OD Unavailable Pao Joseph RN Unavailable Unavailable Esha Grimm-C Unavailable [phone] JeremíasValery damon PA-C Unavailable [phone] Rey Tay MD Unavailable Rocky Zepeda DO Unavailable Philip Dumont MD Unavailable [phone] Meredith Carrera-C Unavailable [phone] Neil Kent MD Unavailable Juan Pablo Emmanuel MD Unavailable [phone] Audrey aWite PA-C Unavailable [phone] Valery Veronica-C Unavailable [phone] Herminia Hatch MD Unavailable Jelena David OD Unavailable Juan Pablo Emmanuel MD Unavailable [phone] Maru Man PA-C Unavailable [phone] Maru Man PA-C Unavailable [phone] Encounter Details Date Type Department Care Team [...] Answer Date Recorded PHQ-2 Score 1 10/24/2024 [facility] - Occupational Stress Questionnaire Answer Date [...] exercise at this level? 20 min 05/07/2024 [place] Depression Scale Answer Date Recorded [place] Depression Score 5 01/14/2021 Last EPDS [...] PM CDT Legal Sex Female 4:13 AM [facility] Gender Identity Female 03/02/2021 5:45 PM CDT [...] Description 11/21/2024 7:00 AM CDT Office Visit [address] [address] Maru Man PA-C [address] [place] [address] 12/20/2024 2:30 PM CDT Office Visit [facility] [address] [place] [address] Esha Grimm PA-C [address] [place] [address] 04/16/2025 11:00 AM CDT Virtual Visit [facility] [address]th [place] [phone] Meredith Carrera PA-C 909 [place] [address] documented as of this encounter Visit Diagnoses Not on filedocumented in this encounter Additional Health Concerns Infection Onset Date Last Indicated Resolved Time Rule Out COVID-19 12/18/2021 12/18/2021 12/19/2021 11:34 AM CDT Rule Out COVID-19 02/24/2022 02/24/2022 02/25/2022 1:08 PM CDT Rule Out COVID-19 04/26/2022 04/26/2022 04/26/2022 6:47 AM CDT Rule Out COVID-19 05/17/2022 05/17/2022 05/17/2022 10:20 PM [facility] Rule Out COVID-19 06/09/2022 06/09/2022 06/09/2022 9:35 AM [facility] COVID-19 06/09/2022 06/09/2022 06/30/2022 11:4 1 PM [facility] Rule Out COVID-19 11/10/2022 11/10/2022 11/11/2022 12:17 [...] as of this encounter Care Teams Director Human Services Relationship Specialty Start Date End Date Marija Edgar APRN BASKETBALL PLAYER PCP - General Nurse Practitioner 04/30/20 04/14/23 Esha Grimm PA-C [address] [place] [phone] PCP - General Family Medicine 05/04/23 Lita Oseguera Personal Advocate & Liaison (PAL) 02/28/20 03/27/23 Marija Edgar APRN BASKETBALL PLAYER Assigned PCP 06/08/20 04/29/23 Mynor Broussard MD [address] [address] Assigned Surgical Provider 06/01/20 11/28/21 Keisha Dotson MD 909 [place] [address] Assigned Neuroscience Provider 06/04/20 04/01/23 Galo Burrell MD Assigned Heart and Vascular Provider 10/05/20 04/02/22 [facility] [address] [place] [address] Pharmacist Pharmacist 04/17/21 Rain Galaviz PA-C [address] [place] [address] DR [facility] [place] [address] Physician Belt Splicer Dermatology 04/28/21 Summer Lara MD [address] [place] [address] [place] [address] Assigned OBGYN Provider 05/31/21 2 Tavia Wyatt MD [address] [place] [address] Dermatology 07/14/21 Johnny Murillo MD [facility] [facility] [address] [place] [address] Assigned Musculoskeletal Provider 08/30/21 03/17/22 Erica Farrell APRN [facility] 6405 [facility] [address] [place] [address] Nurse Practitioner Cardiovascular Disease 09/09/21 Teresita Bean [facility] [address] [place] [address] Pharmacist Pharmacist 09/24/21 09/29/21 Tavia Wyatt MD [address] [place] [address] Assigned Surgical Provider 11/29/21 05/07/22 [facility] 3033 [place] [address] Assigned MTM Pharmacist 01/02/22 Rich Barrett MD 3033 [place] [address] Physician Ophthalmology 01/21/22 Neil Kent MD 500 [place] [address] Dermatology 02/24/22 Roney Story DPM [address] [facility] [address] [place] [address] Assigned Musculoskeletal Provider 03/20/22 08/13/22 Erica Farrell APRN BASKETBALL PLAYER 1700 [place] [address] Assigned Heart and Vascular Provider 04/03/22 04/16/22 Diana Desir, [facility] [address] [place] [address] Assigned MTM Pharmacist 04/07/22 Jelena David OD [address] [facility] [place] [address] Assigned Surgical Provider 05/08/22 10/08/22 Galo Burrell MD Assigned Heart and Vascular Provider 04/17/22 06/11/22 Livan Sharif MD 6405 [facility] [address] [place] 234625 Cardiovascular Disease 05/14/22 Livan Sharif MD [address] [place] [id number] [place] 607415 Assigned Heart and Vascular Provider 06/12/22 07/23/22 Catherine Cm MD [address] [place] [address] [place] 143785 Cardiovascular Disease 07/21/22 Valery Veronica, PA-C [address] [place] [address] 472165 Physician Belt Splicer Dermatology 07/21/22 Catherine Cm MD [address] [place] [address] [place] 775825 Assigned Heart and Vascular Provider 07/24/22 11/05/22 Johnny Murillo MD [address] [place] [address] 568554 Assigned Musculoskeletal Provider 08/14/22 10/08/22 Brea Quinn APRN BASKETBALL PLAYER [address] [place] [address] 823965 Nurse Practitioner Dermatology 09/21/22 Brea Quinn APRN BASKETBALL PLAYER [address] [place] [address] [place] 690472 Assigned Surgical Provider 10/09/22 05/01/24 [place] [address] [place] [address] 797346 Assigned Musculoskeletal Provider 10/09/22 05/01/24 Livan Sharif MD [address] [place] [address] Assigned Heart and Vascular Provider 11/06/22 11/12/22 Catherine Cm MD [address] [place] [address] Assigned Heart and Vascular Provider 11/13/22 05/27/23 Sydnie Martinez RN Personal Advocate & Liaison (PAL) Family Medicine 03/28/23 07/31/23 Alfonso Renteria MD 5775 [facility] 200 [place] [address] Assigned Neuroscience Provider 04/02/23 09/29/24 Cheng Todd PA-C [address] [place] [address] [id number] Assigned PCP 04/30/23 07/15/23 Radha Lomeli, ARLENE BASKETBALL PLAYER [address] [place] [address] Assigned Heart and Vascular Provider 05/28/23 Jelena David OD [facility] [facility] [place] [address] Ophthalmology 06/15/23 Pao Joseph RN Personal Advocate & Liaison (PAL) Nurse 08/01/23 11/07/23 Esha Grimm PAUcheC [address] [place] [address] Assigned PCP 07/16/23 Valery Veronica PA-C [address] [place] [address] Physician Belt Splicer Dermatology 09/19/23 Rey Tay MD [address] [place] [address] MD Gastroenterology 09/20/23 Rocky Zepeda DO [address] [place] [address] Physician Gastroenterology 09/20/23 Philip Dumont MD [address] [place] [address] Physician Ophthalmology 09/22/23 Meredith Carrera PA-C [address] [place] [address] Assigned Gastroenterology Provider 11/01/23 Neil Kent MD [address] [id number] Dermatology 11/02/23 [place] [address] [place] [address] Neurological Surgery 12/26/23 Audrey Waite PA-C [address] [place] [address] Physician Belt Splicer Dermatology 02/28/24 Valery Veronica PA-C [address] [facility] [place] [address] Physician Belt Splicer Dermatology 04/10/24 Herminia Hatch MD 1875 [place] [address] Assigned Rheumatology Provider 07/02/24 Jelena David OD 3305 [facility] [place] [address] Ophthalmology 08/30/24 [place] [address] [place] [address] Assigned Neuroscience Provider 09/30/24 Maru Man PA-C [address] [place] [address] Physician Belt Splicer Dermatology 10/03/24 Maru Man PA-C [address] [place] [address] Physician Belt Splicer Dermatology 10/22/24 documented as of this encounter
--- OUTSIDE RECORDS SUMMARY | 2024-11-21 05:12 | XMS_ITS | Encounter Summary ---
Author Organization [place] Address [address] [place] [address] Care Team Providers Care Insurance Compliance Analyst Name Role Phone Diana Desir [facility] Unavailable Rain Galaviz PA-C Unavailable Tavia Wyatt MD Unavailable Erica Farrell APRN FINANCIAL UNDERWRITER Unavailable Rich Barrett MD Unavailable [phone] Neil Kent MD Unavailable Diana Desir [facility] Unavailable Livan Sharif MD Unavailable Catherine Cm MD Unavailable + Valery Veronica PA-C Unavailable Brea Quinn INDEX CLERK FINANCIAL UNDERWRITER Unavailable [phone] Brea Quinn INDEX CLERK FINANCIAL UNDERWRITER Unavailable Jose Francisco Johnson MD Unavailable Alfonso Renteria MD Unavailable [phone] Esha Grimm PA-C Primary Care Provider [phone] Radha Lomeli APRN FINANCIAL UNDERWRITER Unavailable Jelena David OD Unavailable [phone] Esha Grimm PA-C Unavailable [phone] JeremíasValery damon PA-C Unavailable [phone] Rey Tay MD Unavailable Duane Rockyanne STEVENS Unavailable Philip Dumont MD Unavailable Meredith Carrera PA-C Unavailable [phone] Neil Kent MD Unavailable Juan Pablo Emmanuel [...] [facility] Medical Advice [facility] [address] [place] [address] Rain Burnette, RN Social History [...] 03/10/2023 How often do you attend [facility] or episcopalian services? 1 to 4 [...] exercise at this level? 30 min 03/10/2023 [place] Depression Scale Answer Date Recorded [place] Depression Score 5 01/14/2021 Last EPDS Self [...] Date Recorded Do you have housing? (Catherine laves is defined as stable permanent housing and [...] PM CDT Legal Sex Female 4:13 AM BENCH MOVER Gender Identity Female 03/02/2021 5:45 PM CDT Sexual Orientation Straight 02/28/2020 12 :51 AM CDT documented as of this encounter Plan of Treatment Upcoming Encounters Date Type Department Care Team (Late st Contact Info) Description 11/21/2024 7:00 AM CDT Office Visit [facility] [address] [phone] Maru Man PA-C [address] [address] 12/20/2024 2:30 PM CDT Office Visit [place] [address] [place] [phone] Esha Grimm PA-C [address] [place] [address] 04/16/2025 11:00 AM CDT Virtual [facility] [address] 4th [place] [phone] Meredith Carrera PA-C [address] [place] [address] documented as of this encounter Visit Diagnoses [...] as of this encounter Care Teams Insurance Compliance Analyst Relationship Specialty Start Date End Date Esha Grimm PA-C [address] [place] [address] PCP - General Family Medicine 05/04/23 Diana Desir, [facility] [address] [place] [address] Pharmacist Pharmacist 04/17/21 Rain Galaviz PA-C [address] [place] [address] DR [facility] [place] [address] Physician C++ Professor Dermatology 04/28/21 Tavia Wyatt MD [address] [place] [address] [address] [place] [id number] Dermatology 07/14/21 Erica Farrell APRN FINANCIAL UNDERWRITER [address] [place] [address] Nurse Practitioner Cardiovascular Disease 09/09/21 Rich Barrett MD [address] [place] 3[address]25 Physician Ophthalmology 01/21/22 Neil Kent MD [address] [place] [address] 047235 MD Dermatology 02/24/22 Diana Desir, [facility] 3033 [place], [place] [address]46006 Assigned [place] Pharmacist 04/07/22 Livan Sharif MD [address] [place] [address] Cardiovascular Disease 05/14/22 Catherine Cm MD [address] [place] [address] Cardiovascular Disease 07/21/22 Valery Veronica, PA-C [address] [place] [address] Physician C++ Professor Dermatology 07/21/22 Brea Quinn APRN FINANCIAL UNDERWRITER 500 [place] [address] Nurse Practitioner Dermatology 09/21/22 Brea Quinn APRN FINANCIAL UNDERWRITER 6401 [facility] [place] [address] Assigned Surgical Provider 10/09/22 05/01/24 [place] [address] [address] [facility] 300 [place] [address] Assigned Musculoskeletal Provider 10/09/22 05/01/24 Alfonso Renteria MD 5775 [facility] 200 [place], [place] 489806 Assigned Neuroscience Provider 04/02/23 09/29/24 Radha Lomeli APRN FINANCIAL UNDERWRITER 6405 [facility] [address] [place] [address] Assigned Heart and Vascular Provider 05/28/23 Jelena David OD [address] [facility] [place] [address] Ophthalmology 06/15/23 Esha Grimm PA-C [address] [place] [phone] Assigned PCP 07/16/23 Valery Veronica PA-C 909 [place] [address] Physician C++ Professor Dermatology 09/19/23 Rey Tay MD [address] [place] [address] MD Gastroenterology 09/20/23 Rocky Zepeda DO [address] [place] [address] Physician Gastroenterology 09/20/23 Philip Dumont MD [address] [place] [address] Physician Ophthalmology 09/22/23 Meredith Carrera PA-C [address] [place] [address] Assigned Gastroenterology Provider 11/01/23 Neil Kent MD [address] [address] Dermatology 11/02/23 [place] [address] [address] Neurological Surgery 12/26/23 Audrey Waite PA-C [address] [place] [address] Physician C++ Professor Dermatology 02/28/24 Valery Veronica PA-C [id number] [place] [address] Physician C++ Professor Dermatology 04/10/24 Herminia Hatch MD [address] [place] [address] [id number] Assigned Rheumatology Provider 07/02/24 Jelena David OD 3305 [facility] [place] [address] Ophthalmology 08/30/24 [place] [address] [place] [address] Assigned Neuroscience Provider 09/30/24 Maru Man PA-C [address] [place] [address] Physician C++ Professor Dermatology 10/03/24 Maru Man PA-C [address] [place] [address] Physician C++ Professor Dermatology 10/22/24 Jelena David OD 3305 [facility] [place] [address] Assigned Surgical Provider 10/31/24 documented as of this encounter
--- OUTSIDE RECORDS SUMMARY | 2024-11-21 05:12 | XMS_ITS | Encounter Summary ---
Author Organization [place] Address [address] [place] [address] Care Team Providers Care [facility] Technician Name Role Phone Lita Oseguera Unavailable Unavailable Marija Edgar APRN TOUCH UP WORKER Primary Care Provider + Marija Edgar APRN TOUCH UP WORKER Unavailable Mynor Broussard MD Unavailable [phone] Keisha Dotson MD Unavailable Galo Burrell MD Unavailable Unavailable Diana Desir [facility] Unavailable [phone] Rain Galaviz PA-C Unavailable [phone] Summer Lara MD Unavailable [phone] Tavia Wyatt MD Unavailable Johnny Murillo MD Unavailable [phone] Erica Farrell APRN TOUCH UP WORKER Unavailable Teresita eBan [facility] Unavailable [phone] Tavia Wyatt MD Unavailable Diana Desir [facility] Unavailable Rich Barrett MD Unavailable [phone] Neil Kent MD Unavailable Roney Story DPM Unavailable Erica Farrell LINER MAN TOUCH UP WORKER Unavailable Diana Desir [facility] Unavailable [phone] Jelena David OD Unavailable Galo Burrell MD Unavailable Unavailable Livan Sharif MD Unavailable + Livan Sharif MD Unavailable + Catherine Cm MD Unavailable + Valery Veronica PA-C Unavailable [phone] Catherine Cm MD Unavailable + Johnny Murillo MD Unavailable [phone] Brea Quinn LINER MAN TOUCH UP WORKER Unavailable [phone] Brea Quinn LINER MAN TOUCH UP WORKER Unavailable [phone] Jose Francisco Johnson MD Unavailable Livan Sharif MD Unavailable + IsCatherine hobbs MD Unavailable + Sydnie Martinez RN Unavailable Unavailable Alfonso Renteria MD Unavailable Esha Grimm-C Primary Care Provider Cheng Todd PA-C Unavailable Radha Lomeli LINER MAN TOUCH UP WORKER Unavailable [phone] Jelena David OD Unavailable Pao Joseph RN Unavailable Unavailable Esha Grimm-C Unavailable [phone] JeremíasValery damon PA-C Unavailable [phone] Rey Tay MD Unavailable Rocky Zepeda DO Unavailable Philip Dumont MD Unavailable [phone] Meredith Carrera PA-C Unavailable [phone] Neil Kent MD Unavailable Juan Pablo Emmanuel MD Unavailable Audrey Waite PA-C Unavailable [phone] Valery Veronica PA-C Unavailable [phone] Herminia Hatch MD Unavailable Jelena David OD Unavailable Juan Pablo Emmanuel MD Unavailable [phone] Maru ManC Unavailable [phone] Maru Man PA-C Unavailable [phone] Jelena David OD Unavailable Encounter Details Date Type Department Care Team (Late st Contact Info) Description 09/24/2021 My[facility] Medical Advice [facility] 3305 [facility] [address] [place] [address] Teresita Bean, [facility] 1440 [facility] [place] [address] Social History Tobacco [...] How often do you attend restorationism or sikh serv ices? Never 09/22/2021 Do [...] 2 09/22/2021 [facility] of Occupat ional [...] in a detention (including now)? No 09/22/2021 [place] Depression Scale Answer Date Recorded [place] Depression Score 5 01/14/2021 Last EPDS Self Harm Result Not on file 01/14 Education Answer Date Recorded What is the highest level of school you have completed or the highest degree you have received? 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 Gender Identity Female 03/02/2021 5:45 [...] Description 11/21/2024 7:00 AM CDT Office Visit [address] [address] Maru Man PA-C [address] [place] [address] 12/20/2024 2:30 PM CDT Office Visit [facility] [address] [place] [phone] Esha Grimm PA-C [address] [place] [address] 04/16/2025 11:00 AM CDT Virtual Visit [facility] [address] 4th [place] [phone] Meredith Carrera PA-C 909 [place] [address] documented as of this encounter Visit Diagnoses Not on filedocumented in this encounter Additional Health Concerns Infection Onset Date Last Indicated Resolved Time Rule Out COVID-19 12/18/2021 12/18/2021 12/19/2021 11:34 AM CDT Rule Out COVID-19 02/24/2022 02/24/2022 02/25/2022 1:08 PM CDT Rule Out COVID-19 04/26/2022 04/26/2022 04/26/2022 6:47 AM CDT Rule Out COVID-19 05/17/2022 05/17/2022 05/17/2022 10:20 PM HEAVY EQUIPMENT SALES MANAGER Rule Out COVID-19 06/09/2022 06/09/2022 06/09/2022 9:35 AM HEAVY EQUIPMENT SALES MANAGER COVID-19 06/09/2022 06/09/2022 06/30/2022 11:4 1 PM HEAVY EQUIPMENT SALES MANAGER Rule Out COVID-19 11/10/2022 11/10/2022 [...] documented as of this encounter Care Teams [facility] Technician Relationship Specialty Start Date End Date Marija Edgar APRN TOUCH UP WORKER PCP - General Nurse Practitioner 04/30/20 04/14/23 Esha Grimm PA-C [address] [place] [phone] PCP - General Family Medicine 05/04/23 Lita Oseguera Personal Advocate & Liaison (PAL) 02/28/20 03/27/23 Marija Edgar APRN TOUCH UP WORKER Assigned PCP 06/08/20 04/29/23 Mynor Broussard MD [address] [address] Assigned Surgical Provider 06/01/20 11/28/21 Keisha Dotson MD 909 [place], [place] 323565 Assigned Neuroscience Provider 06/04/20 04/01/23 Galo Burrell MD Assigned Heart and Vascular Provider 10/05/20 04/02/22 Diana Desir, [facility] [address] [place] [address] Pharmacist Pharmacist 04/17/21 Rain Galaviz PA-C [address] [facility] [place] [address] Physician Manager Intel Dermatology 04/28/21 Summer Lara MD [address] [facility] [place], [place] 603424 Assigned OBGYN Provider 05/31/21 Tavia Wyatt MD 606 [facility] [place], [place] [address] Dermatology 07/14/21 Johnny Murillo MD [address] [place] [address] Assigned Musculoskeletal Provider 08/30/21 03/17/22 Erica Farrell APRN TOUCH UP WORKER 6405 [facility] [address] [place] [address] Nurse Practitioner Cardiovascular Disease 09/09/21 Teresita Bean [facility] [address] [place] [id number] Pharmacist Pharmacist 09/24/21 09/29/21 Tavia Wyatt MD [address] [place] [address] Assigned Surgical Provider 11/29/21 05/07/22 Diana Desir, [facility] 3033 [place] [address] Assigned MTM Pharmacist 01/02/22 Rich Barrett MD 3033 [place] [address] Physician Ophthalmology 01/21/22 Neil Kent MD 500 [place], [place] 765985 Dermatology 02/24/22 [place] [address] [address] [facility] [address] [place], [place] 526[address] Assigned Musculoskeletal Provider 03/20/22 08/13/22 Erica Farrell APRN TOUCH UP WORKER 1700 [place] [address] Assigned Heart and Vascular Provider 04/03/22 04/16/22 Diana Desir, [facility] 3033 [place] [address] Assigned MTM Pharmacist 04/07/22 Jelena David OD [address] [facility] [place] [address] Assigned Surgical Provider 05/08/22 10/08/22 Galo Burrell MD Assigned Heart and Vascular Provider 04/17/22 06/11/22 Livan Sharif MD 6405 [facility] [address] [place] 106485 Cardiovascular Disease 05/14/22 Livan Sharif MD [address] [facility] [address] [place] [address] Assigned Heart and Vascular Provider 06/12/22 07/23/22 Catherine Cm MD 6405 [facility] [address] [place] [address] Cardiovascular Disease 07/21/22 Valery Veronica, PA-C [address] [place] [address] Physician Manager [employer] Dermatology 07/21/22 Catherine Cm MD [address] [place] 75[address]200 [place] [address] Assigned Heart and Vascular Provider 07/24/22 11/05/22 Johnny Murillo MD [address] [place] [address] 893534 Assigned Musculoskeletal Provider 08/14/22 10/08/22 Brea Quinn APRN TOUCH UP WORKER [address] [place] [address] Nurse Practitioner Dermatology 09/21/22 Brea Quinn APRN TOUCH UP WORKER [address] [place] [address] [place] [address] Assigned Surgical Provider 10/09/22 05/01/24 [place] [address] [place] [address] Assigned Musculoskeletal Provider 10/09/22 05/01/24 Livan Sharif MD [address] [facility] [address] [place] [address] Assigned Heart and Vascular Provider 11/06/22 11/12/22 Catherine Cm MD [address] [facility] [address] [place] [address] Assigned Heart and Vascular Provider 11/13/22 05/27/23 Sydnie Martinez RN Personal Advocate & Liaison (PAL) Family Medicine 03/28/23 07/31/23 Alfonso Renteria MD 5775 [facility] 200 [place] [address] Assigned Neuroscience Provider 04/02/23 09/29/24 Cheng Todd PA-C [address] [place] [address] Assigned PCP 04/30/23 07/15/23 Radha Lomeli APRN TOUCH UP WORKER [address] [place] [address] Assigned Heart and Vascular Provider 05/28/23 Jelena David OD [address] [place] [address] [place] [address] Ophthalmology 06/15/23 Pao Joseph, VJ Personal Advocate & Liaison (PAL) Nurse 08/01/23 11/07/23 Esha Grimm PA-C [address] [place] [address]634883 Assigned PCP 07/16/23 Valery Veronica PA-C [address] [place] [address] 074945 Physician Manager [employer] Dermat[facility] 09/19/23 Rey Tay MD [address] [place] [address] MD Gastroenterology 09/20/23 Rocky Zepeda DO [address] [place] [address] 388355 Physician Gastroenterology 09/20/23 Philip Dumont MD [address] [place] [address] 335435 Physician Ophthalmology 09/22/23 Meredith Carrera PA-C [address] [place] [address] 955205 Assigned Gastroenterology Provider 11/01/23 Neil Kent MD [address] [address] Dermatology 11/02/23 [place] [address] [place], [place] 021677 Neurological Surgery 12/26/23 Audrey Waite PA-C [address] [place] [address] 835625 Physician Manager [employer] Dermat[facility] 02/28/24 Valery Veronica PA-C [address]36 [address] [place] [address] Physician Manager [employer] Dermat[facility] 04/10/24 Herminia Hatch MD [address] [place] [address] [id number] Assigned Rheumatology Provider 07/02/24 Jelena David OD [address] [place] [address] [place] [address] Ophthalmology 08/30/24 [place] [address] [place] [address] Assigned Neuroscience Provider 09/30/24 Maru Man PA-C [address] [place] [address] Physician Manager [employer] Dermatology 10/03/24 Maru Man PA-C [address] [place] [address] Physician Manager [employer] Dermatology 10/22/24 Jelena David OD [address] [place] [address] [place] [address] Assigned Surgical Provider 10/31/24 documented as of this encounter
--- OUTSIDE RECORDS SUMMARY | 2024-11-21 05:12 | XMS_ITS | Encounter Summary ---
Author Organization [facility] Address [address] [place] [address] Care Team Providers Care J2Ee Architect Name Role Phone Diana Desir [facility] Unavailable Rain Galaviz PA-C Unavailable Tavia Wyatt MD Unavailable Erica Farrell APRN OCCUP THER Unavailable Rich Barrett MD Unavailable [phone] Neil Kent MD Unavailable Diana Desir [facility] Unavailable Livan Sharif MD Unavailable Catherine Cm MD Unavailable + Valery Veronica PA-C Unavailable Brea Quinn METAL TEMPERER OCCUP THER Unavailable Brea Quinn METAL TEMPERER OCCUP THER Unavailable Jose Francisco Johnson MD Unavailable Alfonso Renteria MD Unavailable [phone] Esha Grimm PA-C Primary Care Provider Radha Lomeli APRN OCCUP THER Unavailable Jelena David OD Unavailable [phone] Esha Grimm PA-C Unavailable [phone] Valery Veronica PA-C Unavailable Rey Tay [...] PA-C Unavailable Jelena David OD Unavailable [phone] Encounter Details Date Type Department Care Team (Late st Contact Info) Description 02/27/2024 [facility] Medical Advice [facility] Spine and Neurosurgery [address] [place] [address] Ebony Cid APRN OCCUP THER 500 [place] [address] Social History Tobacco Use Types [...] exercise at this level? 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 Gender Identity Female 03/02/2021 5:45 PM CDT Sexual Orientation Straight 02/28/2020 12 :51 AM CDT documented as of this encounter Plan of Treatment Upcoming Encounters Date Type Department Care Team (Late st Contact Info) Description 11/21/2024 7:00 AM CDT Office Visit [facility] [address] [phone] Maru Man PA-C [address] [place] [address] 12/20/2024 2:30 PM CDT Office Visit [facility] [address] [place] [address] Esha Grimm PA-C [address] [place] [address] 04/16/2025 11:00 AM CDT Virtual Visit [facility] [address] 4th [place] [phone] Meredith Carrera PA-C [address] [place] [address] [phone] documented as of this encounter Visit Diagnoses [...] documented as of this encounter Care Teams J2Ee Architect Relationship Specialty Start Date End Date Esha Grimm PA-C [id number] [place] [address] PCP - General Family Medicine 05/04/23 Diana Desir, [facility] [address] [facility] [address] Pharmacist Pharmacist 04/17/21 Rain Galaviz PA-C [address] [place] [address] [place] [address] Physician Vocational Education Professional Dermatology 04/28/21 Tavia Wyatt MD [address] [place] [address] [address] [place] [address] Dermatology 07/14/21 Erica Farrell APRN OCCUP THER [address] [place] [address] Nurse Practitioner Cardiovascular Disease 09/09/21 Rich Barrett MD [address] [place] 9[address]75 Physician Ophthalmology 01/21/22 Neil Kent MD [address] [place] [address] 335005 Dermatology 02/24/22 [facility] [address] [place] [address] 290926 Assigned [facility] Pharmacist 04/07/22 Livan Sharif MD [address] [place] [address] Cardiovascular Disease 05/14/22 Catherine Cm MD [address] [place] 0[address]65 Cardiovascular Disease 07/21/22 Valery Veronica, PA-C [address] [place] [address] 046315 Physician Vocational Education Professional Dermatology 07/21/22 Brea Quinn APRN OCCUP THER 500 [place], [place] 014285 Nurse Practitioner Dermatology 09/21/22 Brea Quinn APRN OCCUP THER [facility]1 [place], [place] 140682 Assigned Surgical Provider 10/09/22 05/01/24 [place] [address] [address] Assigned Musculoskeletal Provider 10/09/22 05/01/24 Alfonso Renteria MD [address] 765226 Assigned Neuroscience Provider 04/02/23 09/29/24 Radha Lomeli APRN OCCUP THER [address] [place] [address] 900135 Assigned Heart and Vascular Provider 05/28/23 Jelena David OD [address] [facility] [place] [place] [address] Ophthalmology 06/15/23 Esha Grimm PA-C [address] [place] [address]27837283 Assigned PCP 07/16/23 Valery Veronica PA-C 9 [place], [place] 116765 Physician Vocational Education Professional Dermatology 09/19/23 Rey Tay MD [address] [place] [address] 569855 MD Gastroenterology 09/20/23 Rocky Zepeda DO [address] [place] [address] 101315 Physician Gastroenterology 09/20/23 Philip Dumont MD 6 [place] [address] Physician Ophthalmology 09/22/23 Meredith Carrera PA-C [address] [place] [address] 886825 Assigned Gastroenterology Provider 11/01/23 Neil Kent MD [address] [place] [address] Dermatology 11/02/23 [place] [address] [address] [facility] [place] [place] [address] Neurological Surgery 12/26/23 Audrey Waite PA-C [address] [place] [address] Physician Vocational Education Professional Dermatology 02/28/24 Valery Veronica PA-C [address] [place] [address] Physician Vocational Education Professional Dermatology 04/10/24 Herminia Hatch MD [facility]5 [place] [address] Assigned Rheumatology Provider 07/02/24 Jelena David OD [facility] [address] Ophthalmology 08/30/24 [place] [address] [place] [address] Assigned Neuroscience Provider 09/30/24 Maru Man PA-C [address] [place] [address] Physician Vocational Education Professional Dermatology 10/03/24 Maru Man PA-C [address] [place] [address] Physician Vocational Education Professional Dermatology 10/22/24 Jelena David OD [address] [place] [address] [place] [address] Assigned Surgical Provider 10/31/24 documented as of this encounter
--- OUTSIDE RECORDS SUMMARY | 2024-11-21 05:12 | XMS_ITS | Encounter Summary ---
Author Organization [facility] Address [address] [place] [address] Care Team Providers Care Pricing Analyst Name Role Phone Lita Oseguera Unavailable Unavailable Marija Edgar APRN FIRM ADMINISTRATOR Primary Care Provider + Marija Edgar APRN FIRM ADMINISTRATOR Unavailable [phone] Keisha Dotson MD Unavailable Diana Desir [facility] Unavailable Rain Galaviz PA-C Unavailable Tavia Wyatt MD Unavailable Erica Farrell APRN FIRM ADMINISTRATOR Unavailable Rich Barrett MD Unavailable [phone] Neil Kent MD Unavailable Diana Desir [facility] Unavailable Livan Sharif MD Unavailable Catherine Cm MD Unavailable + Valery Veronica PA-C Unavailable Brea Quinn ELECTRIC MOTOR FITTER FIRM ADMINISTRATOR Unavailable Brea Quinn ELECTRIC MOTOR FITTER FIRM ADMINISTRATOR Unavailable Jose Francisco Johnson MD Unavailable Catherine Cm MD Unavailable + Sydnie Martinez RN Unavailable Unavailable Alfonso Renteria MD Unavailable [phone] Esha Grimm PA-C Primary Care Provider Cheng Todd PA-C Unavailable Armani Radha Stovall ARLENE FIRM ADMINISTRATOR Unavailable Jelena David OD Unavailable Pao Joseph RN Unavailable Unavailable Esha Grimm PA-C Unavailable [phone] Valery Veronica PA-C Unavailable Rey Tay MD Unavailable Rocky Zepeda DO Unavailable Philip Dumont MD Unavailable [phone] Meredith Carrera PA-C Unavailable [phone] Neil Kent MD Unavailable Juan Pablo Emmanuel MD Unavailable Audrey Waite PA-C Unavailable Valery Veronica PA-C Unavailable Herminia Hatch MD Unavailable Jelena David OD Unavailable [phone] Juan Pablo Emmanuel MD Unavailable [phone] Maru Man PA-C Unavailable [phone] Maru Man PA-C Unavailable [phone] Jelena David OD Unavailable Encounter Details Date Type Department Care Team (Late st Contact Info) Description 01/10/2023 MyC Medical Advice [facility] [address] [place] [phone] Lauren Claudio PA-C [address] [place] [address] Social History Tobacco Use Types Packs/Day Years [...] How often do you attend anabaptist or congregation serv ices? Never 09/22/2021 Do [...] Score 1 10/11/2022 [facility] - Occupational Stress Questionnaire [...] in a retirement (including now)? No 09/22/2021 [place] Depression Scale Answer Date Recorded [place] Depression Score 5 01/14/2021 Last EPDS Self Harm Result Not on file 01/14 Education Answer Date Recorded What is the highest level of school you have completed or the highest degree you have received? 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 Gender Identity Female 03/02/2021 5:45 PM [...] - 02/03/2023 11:52 AM CDT Incoming call [place]: Rosalva [place] referral following up on [facility] med information that is needed to be faxed at [phone] Erica David MA documented in this encounter Plan of Treatment Upcoming Encounters Date Type Department Care Team (Late st Contact Info) Description 11/21/2024 7:00 AM CDT Office Visit [address] [address] Maru Man PA-C [address] [place] [address] 12/20/2024 2:30 PM CDT Office Visit [facility] [address] [place] [phone] Esha Grimm PA-C [address] [place] [address] 04/16/2025 11:00 AM CDT Virtual Visit [facility] [address] 4th [place] [phone] Meredith Carrera PA-C [address] [place], [place] 378[address] documented as of this encounter Visit Diagnoses [...] Nurse Practitioner 04/30/20 04/14/23 Esha Grimm PA-C [address] [place] [address] PCP - General Family Medicine 05/04/23 Lita Oseguera Personal Advocate & Liaison (PAL) 02/28/20 03/27/23 Marija Edgar APRN FIRM ADMINISTRATOR Assigned PCP 06/08/20 04/29/23 Keisha Dotson MD [address] [place], [place] 548085 Assigned Neuroscience Provider 06/04/20 04/01/23 Diana Desir, [facility] [address] [place], [place] [address] Pharmacist Pharmacist 04/17/21 Rain Galaviz PA-C [address] [place] [address] [address] [place] [address] Physician Inclusion Internship Dermatology 04/28/21 Tavia Wyatt MD [address] [place] [address] [address] [place] [address] Dermatology 07/14/21 Erica Farrell APRN FIRM ADMINISTRATOR [address] [place] [address] Nurse Practitioner Cardiovascular Disease 09/09/21 Rich Barrett MD [address] [place] [address] Physician Ophthalmology 01/21/22 Neil Kent MD [address] [place] [address] Dermatology 02/24/22 Diana Desir, [facility] [address] [place] [address] Assigned [place] Pharmacist 04/07/22 Livan Sharif MD [id number] [place] [address] Cardiovascular Disease 05/14/22 Catherine Cm MD [address] [address] Cardiovascular Disease 07/21/22 Valery Veronica, PA-C [address] [place] [address] Physician Inclusion Internship Dermatology 07/21/22 Brea Quinn APRN FIRM ADMINISTRATOR [address] [place] [address] Nurse Practitioner Dermatology 09/21/22 Brea Quinn APRN FIRM ADMINISTRATOR [address] [place] [address] Assigned Surgical Provider 10/09/22 05/01/24 [place] [address] [place] [address] Assigned Musculoskeletal Provider 10/09/22 05/01/24 Catherine Cm MD [address] [place] [address] Assigned Heart and Vascular Provider 11/13/22 05/27/23 Sydine Martinez RN Personal Advocate & Liaison (PAL) Family Medicine 03/28/23 07/31/23 Alfonso Renteria MD [address] [facility] 200 [place] [address] Assigned Neuroscience Provider 04/02/23 09/29/24 Cheng Todd PA-C [address] [place] [address] [id number] Assigned PCP 04/30/23 07/15/23 Radha Lomeli APRN FIRM ADMINISTRATOR [address] [place] [address] Assigned Heart and Vascular Provider 05/28/23 Jelena David OD [address] [facility] [place] [address] Ophthalmology 06/15/23 Pao Joseph RN Personal Advocate & Liaison (PAL) Nurse 08/01/23 11/07/23 Esha Grimm PA-C [address] [place] [phone] Assigned PCP 07/16/23 Valery Veronica PA-C [address] [place] [address] Physician Inclusion Internship Dermatology 09/19/23 Rey Tay MD [address] [place] [address] MD Gastroenterology 09/20/23 Rocky Zepeda DO [address] [place] [address] Physician Gastroenterology 09/20/23 Philip Dumont MD [address] [place] [address] Physician Ophthalmology 09/22/23 Meredith Carrera PA-C [address] [place] [place] [address] Assigned Gastroenterology Provider 11/01/23 Neil Kent MD [address] [address] Dermatology 11/02/23 [place] [address] [address] Neurological Surgery 12/26/23 Audrey Waite PA-C [address] [place] [address] Physician Inclusion Internship Dermatology 02/28/24 Valery Veronica PA-C [address] [place] [address] Physician Inclusion Internship Dermatology 04/10/24 Herminia Hatch MD [address] [place] [address] [id number] Assigned Rheumatology Provider 07/02/24 Jelena David OD [address] [facility] [place] [address] Ophthalmology 08/30/24 [place] [address] [place] [address] Assigned Neuroscience Provider 09/30/24 Maru Man PA-C [address] [place] [address] Physician Inclusion Internship Dermatology 10/03/24 Maru Man PA-C [address] [place] [address] Physician Inclusion Internship Dermatology 10/22/24 Jelena David OD [address] [facility] [place] [address] Assigned Surgical Provider 10/31/24 documented as of this encounter
--- OUTSIDE RECORDS SUMMARY | 2024-11-21 05:12 | XMS_ITS | Encounter Summary ---
Author Organization [facility] Address [address] [place] [address] Care Team Providers Care Retail Property Manager Name Role Phone Diana Desir [facility] Unavailable Rain Galaviz PA-C Unavailable Tavia Wyatt MD Unavailable Erica Farrell APRN CLERK Unavailable Rich Barrett MD Unavailable [phone] Neil Kent MD Unavailable Diana Desir [facility] Unavailable Livan Sharif MD Unavailable Catherine Cm MD Unavailable + Valery Veronica PA-C Unavailable Brea Qunin NEWSWRITER CLERK Unavailable Brea Quinn NEWSWRITER CLERK Unavailable [phone] Jose Francisco Johnson MD Unavailable Alfonso Renteria MD Unavailable [phone] Esha Grimm PA-C Primary Care Provider [phone] Radha Lomeli APRN CLERK Unavailable Jelena David OD Unavailable [phone] Esha Grimm PA-C Unavailable [phone] JeremíasValery damon PA-C Unavailable Rey Tay MD Unavailable Duane Rocky Unavailable Philip Dumont MD Unavailable Meredith Carrera PA-C Unavailable [phone] Neil Kent MD Unavailable Juan Pablo Emmanuel MD Unavailable Audrey Waite PA-C Unavailable [phone] JeremíasValery damon PA-C Unavailable Herminia Hatch MD Unavailable Jelena David OD Unavailable [phone] Juan Pablo Emmanuel MD Unavailable Maru Man PA-C Unavailable Maru Man PA-C Unavailable Jelena David OD Unavailable Encounter Details Date Type Department Care Team (Late st Contact Info) Description 02/01/2024 MyC Medical Advice [facility] Neurology Clinics [address], [address] [place] [address] Macy Pinedo, RN Social History [...] attend [facility] or spiritism services? 1 to 4 [...] exercise at this level? 30 min 03/10/2023 [place] Depression Scale Answer Date Recorded [place] Depression Score 5 01/14/2021 Last EPDS Self [...] CDT Legal Sex Female 4:13 AM DIGITAL EDITOR Gender Identity Female 03/02/2021 5:45 PM CDT Sexual Orientation Straight 02/28/2020 12 :51 AM CDT documented as of this encounter Plan of Treatment Upcoming Encounters Date Type Department Care Team (Late st Contact Info) Description 11/21/2024 7:00 AM CDT Office Visit [facility] [address] [phone] Maru Man PA-C [address] [address] 12/20/2024 2:30 PM CDT Office Visit [address] [place] [phone] Esha Grimm PA-C [address] [place] [address] 04/16/2025 11:00 AM CDT Virtual Visit [facility] Gastroenterology Clinic [address] 4th [place] [phone] Meredith Carrera PA-C [address] [place] [address] documented as of this encounter Visit Diagnoses Not on filedocumented in this encounter Additional Health Concerns Infection Onset Date Last Indicated Resolved Time Rule Out COVID-19 04/09/2024 04/09/2024 04/10/2024 6:48 PM CDT Rule Out COVID-19 10/04/2024 10/04/2024 10/05/2024 9:42 AM CDT Rule Out COVID-19 11/20/2024 11/20/2024 Assessment Noted Time PHQ-9 Depression Total Score: 4 06/20/20 23 8:40 AM DIGITAL EDITOR documented as of this encounter Care Teams Retail Property Manager Relationship Specialty Start Date End Date Esha Grimm PA-C [address] [place] [address] PCP - General Family Medicine 05/04/23 Diana Desir, [facility] [address] [place] [address] Pharmacist Pharmacist 04/17/21 Rain Galaviz PA-C [address] [place] [address] [address] [facility] [place] [address] Physician Die Fitter Dermatology 04/28/21 Tavia Wyatt MD [address] [place] [address] [address] [facility] [place] [id number] Dermatology 07/14/21 Erica Farrell APRN CLERK [address] [place], [place] [address] Nurse Practitioner Cardiovascular Disease 09/09/21 Rich Barrett MD [address] [place] [address]505 Physician Ophthalmology 01/21/22 Neil Kent MD 500 [place], [place] 530425 Dermatology 02/24/22 [facility] [address] [place], [place] [address] Assigned [place] Pharmacist 04/07/22 Livan Sharif MD [address] [place] [address] Cardiovascular Disease 05/14/22 Catherine Cm MD [address] [place] 843775 Cardiovascular Disease 07/21/22 Valery Veronica, PA-C [address] [place] [address] Physician Die Fitter Dermatology 07/21/22 Brea Quinn APRN CLERK 500 [place] [address] Nurse Practitioner Dermatology 09/21/22 Brea Quinn APRN CLERK [address] [place] [address] Assigned Surgical Provider 10/09/22 05/01/24 [place] [address] [address] [facility] [address] [place] [address] Assigned Musculoskeletal Provider 10/09/22 05/01/24 Alfonso Renteria MD 5775 [facility] 200 [place], [place] [address]106 Assigned Neuroscience Provider 04/02/23 09/29/24 Radha Lomeli APRN CLERK 6[address] [facility] [address] [place] [address] Assigned Heart and Vascular Provider 05/28/23 Jelena David OD [address] [facility] [address] Ophthalmology 06/15/23 Esha Grimm PA-C [address] [place] [phone] Assigned PCP 07/16/23 Valery Veronica PA-C [address] [place] [address] Physician Die Fitter Dermatology 09/19/23 Rey Tay MD [address] [place] [address] MD Gastroenterology 09/20/23 Rocky Zepeda DO [address] [place] [address] Physician Gastroenterology 09/20/23 Philip Dumont MD [address] [place] [address] Physician Ophthalmology 09/22/23 Meredith Carrera PA-C [address] [place] [address] Assigned Gastroenterology Provider 11/01/23 Neil Kent MD [address] [place] [address] MD Dermatology 11/02/23 [place] [address] [address] Neurological Surgery 12/26/23 Audrey Waite PA-C [address] [place] [address] Physician Die Fitter Dermatology 02/28/24 Valery Veronica PA-C [address] [place] [address] Physician Die Fitter Dermatology 04/10/24 Herminia Hatch MD [address] [place] [address] [id number] Assigned Rheumatology Provider 07/02/24 Jelena David OD [address] [facility] [place] [address] Ophthalmology 08/30/24 [place] [address] [place] [address] Assigned Neuroscience Provider 09/30/24 Maru Man PA-C [address] [place] [address] Physician Die Fitter Dermatology 10/03/24 Maru Man PA-C [address] [place] [address] Physician Die Fitter Dermatology 10/22/24 Jelena David OD [address] [facility] [place] [address] Assigned Surgical Provider 10/31/24 documented as of this encounter
--- OUTSIDE RECORDS SUMMARY | 2024-11-21 05:12 | XMS_ITS | Encounter Summary ---
Author Organization [facility] Address [address] [place] [address] Care Team Providers Care Resource Specialist Name Role Phone Lita Oseguera Unavailable Unavailable Marija Edgar APRN BREEDER HEN SERVICE TECHNICIAN Primary Care Provider + Marija Edgar APRN BREEDER HEN SERVICE TECHNICIAN Unavailable Mynor Broussard MD Unavailable [phone] Keisha Dotson MD Unavailable [phone] Galo Burrell MD Unavailable Unavailable Diana Desir [facility] Unavailable Rain Galaviz PA-C Unavailable Summer Lara MD Unavailable [phone] Tavia Wyatt MD Unavailable Johnny Murillo MD Unavailable Erica Farrell APRN BREEDER HEN SERVICE TECHNICIAN Unavailable Teresita Bean [facility] Unavailable Tavia Wyatt MD Unavailable Diana Desir [facility] Unavailable [phone] Rich Barrett MD Unavailable [phone] Neil Kent MD Unavailable Roney Story DPM Unavailable Erica Farrell COUNTRY PRINTER APPRENTICE BREEDER HEN SERVICE TECHNICIAN Unavailable Diana Desir [facility] Unavailable [phone] Jelena David OD Unavailable Galo Burrell MD Unavailable Unavailable Livan Sharif MD Unavailable + Livan Sharif MD Unavailable + Catherine Cm MD Unavailable + Valery Veronica PA-C Unavailable [phone] Catherine Cm MD Unavailable + Johnny Murillo MD Unavailable [phone] Brea Quinn COUNTRY PRINTER APPRENTICE BREEDER HEN SERVICE TECHNICIAN Unavailable [phone] Brea Quinn COUNTRY PRINTER APPRENTICE BREEDER HEN SERVICE TECHNICIAN Unavailable [phone] Jose Francisco Johnson MD Unavailable Livan Sharif MD Unavailable + IsCatherine hobbs MD Unavailable + Sydnie Martinez RN Unavailable Unavailable Alfonso Renteria MD Unavailable Esha Grimm-C Primary Care Provider Cheng Todd PA-C Unavailable Radha Lomeli COUNTRY PRINTER APPRENTICE BREEDER HEN SERVICE TECHNICIAN Unavailable [phone] Jelena David OD Unavailable Pao Joseph RN Unavailable Unavailable Esha Grimm-C Unavailable [phone] JeremíasValery damon PA-C Unavailable [phone] Rey Tay MD Unavailable Rocky Zepeda DO Unavailable Philip Dumont MD Unavailable [phone] Meredith Carrera PA-C Unavailable [phone] Neil Kent MD Unavailable Juan Pablo Emmanuel MD Unavailable [phone] Audrey Waite PA-C Unavailable [phone] Valery Veronica PA-C Unavailable [phone] Herminia Hatch MD Unavailable Jelena David OD Unavailable Juan Pablo Emmanuel MD Unavailable [phone] Maru ManC Unavailable [phone] Maru ManC Unavailable [phone] Jelena David OD Unavailable Encounter Details Date Type Department Care Team (Late st Contact Info) Description 09/02/2021 [facility] [address] [address] Diana Desir, [facility] [address] [place], [place] [phone] Social History Tobacco Use Types Packs/Day Years [...] do you attend chur or yazidism services? More than 4 times [...] in a long-term (including now)? No 08/11/2020 [place] Depression Scale Answer Date Recorded [place] Depression Score 5 01/14/2021 Last EPDS Self Harm Result Not on file 01/14 Education Answer Date Recorded What is the highest level of school you have completed or the highest degree you have received? 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 No / Unsure 09/02/2021 12:26 PM HARBOR DEPARTMENT MANAGER documented as of this encounter Plan of Treatment Upcoming Encounters Date Type Department Care Team (Late st Contact Info) Description 11/21/2024 7:00 AM CDT Office Visit [address] [phone] Maru Man PA-C [address] [place] [address] 12/20/2024 2:30 PM CDT Office Visit [facility] [address] [place] [address] Esha Grimm PA-C [address] [place] [address] 04/16/2025 11:00 AM CDT Virtual Visit [facility] [place] [address]199 [facility] [address] [place] [phone] Meredith Carrera PA-C [address] [place] [address] documented as of this encounter Visit Diagnoses Not on filedocumented in this encounter Additional Health Concerns Infection Onset Date Last Indicated Resolved Time Rule Out COVID-19 12/18/2021 12/18/2021 12/19/2021 11:34 AM CDT Rule Out COVID-19 02/24/2022 02/24/2022 02/25/2022 1:08 PM CDT Rule Out COVID-19 04/26/2022 04/26/2022 04/26/2022 6:47 AM CDT Rule Out COVID-19 05/17/2022 05/17/2022 05/17/2022 10:20 PM HARBOR DEPARTMENT MANAGER Rule Out COVID-19 06/09/2022 06/09/2022 06/09/2022 9:35 AM HARBOR DEPARTMENT MANAGER COVID-19 06/09/2022 06/09/2022 06/30/2022 11:4 1 PM HARBOR DEPARTMENT MANAGER Rule Out COVID-19 11/10/2022 11/10/2022 11/11/2022 [...] documented as of this encounter Care Teams Resource Specialist Relationship Specialty Start Date End Date Marija Edgar APRN BREEDER HEN SERVICE TECHNICIAN PCP - General Nurse Practitioner 04/30/20 04/14/23 Esha Grimm PA-C [address] [place] [phone] PCP - General Family Medicine 05/04/23 Lita Oseguera Personal Advocate & Liaison (PAL) 02/28/20 03/27/23 Marija Edgar APRN BREEDER HEN SERVICE TECHNICIAN Assigned PCP 06/08/20 04/29/23 Mynor Broussard MD [address] [address] Assigned Surgical Provider 06/01/20 11/28/21 Keisha Dotson MD 909 [place] [address] Assigned Neuroscience Provider 06/04/20 04/01/23 Galo Burrell MD Assigned Heart and Vascular Provider 10/05/20 04/02/22 Diana Desir, [facility] [address] [place] [address] Pharmacist Pharmacist 04/17/21 Rain Galaviz PA-C [address] [place] [address] [address] [facility] [place] [address] Physician Product Scientist Dermatology 04/28/21 Summer Lara MD [address] [place] [address] 017764 Assigned OBGYN Provider 05/31/21 Tavia Wyatt MD [address] [place] [address] [id number] Dermatology 07/14/21 Johnny Murillo MD [address] [place], [place] 573084 Assigned Musculoskeletal Provider 08/30/21 03/17/22 Erica Farrell APRN BREEDER HEN SERVICE TECHNICIAN [address] [facility] [address] [place], [place] 2425[address] Nurse Practitioner Cardiovascular Disease 09/09/21 Teresita Bean, [facility] [address] [place] [phone] Pharmacist Pharmacist 09/24/21 09/29/21 Tavia Wyatt MD [address] [place], [place] [phone] Assigned Surgical Provider 11/29/21 05/07/22 Diana Desir, [facility] [address] [place] [address] Assigned MTM Pharmacist 01/02/22 Rich Barrett MD [address] [place] [address] Physician Ophthalmology 01/21/22 Neil Kent MD 500 [place], [place] 738005 Dermatology 02/24/22 [place] [address] [facility] [address] [place] [address] Assigned Musculoskeletal Provider 03/20/22 08/13/22 Erica Farrell APRN BREEDER HEN SERVICE TECHNICIAN [address] [place] [address] Assigned Heart and Vascular Provider 04/03/22 04/16/22 Diana Desir, [facility] [address] [place] [address] Assigned MTM Pharmacist 04/07/22 Jelena David OD [address] [place] [address] Assigned Surgical Provider 05/08/22 10/08/22 Galo Burrell MD Assigned Heart and Vascular Provider 04/17/22 06/11/22 Livan Sharif MD [address] [facility] [address] [place] [address] Cardiovascular Disease 05/14/22 Livan Sharif MD [address] [place] [address] Assigned Heart and Vascular Provider 06/12/22 07/23/22 Catherine Cm MD [address] [facility] [address] [place] [address] Cardiovascular Disease 07/21/22 Valery Veronica, PAUcheC [address] [place] [address] Physician Product Scientist Dermatology 07/21/22 Catherine Cm MD [address] [facility] [address] [place] [address] Assigned Heart and Vascular Provider 07/24/22 11/05/22 Johnny Murillo MD [address] [place] [address] 344334 Assigned Musculoskeletal Provider 08/14/22 10/08/22 Brea Quinn APRN BREEDER HEN SERVICE TECHNICIAN [address] [place] [address] 351865 Nurse Practitioner Dermatology 09/21/22 Brea Quinn APRN BREEDER HEN SERVICE TECHNICIAN [address] [place] [address] [place] [address] Assigned Surgical Provider 10/09/22 05/01/24 [place] [address] [address] [place] [address] Assigned Musculoskeletal Provider 10/09/22 05/01/24 Livan Sharif MD [address] [place] [address] Assigned Heart and Vascular Provider 11/06/22 11/12/22 Catherine Cm MD [address] [place] [address] Assigned Heart and Vascular Provider 11/13/22 05/27/23 Sydnie Martinez RN Personal Advocate & Liaison (PAL) Family Medicine 03/28/23 07/31/23 Alfonso Renteria MD 5775 [facility] 200 [place] [address] Assigned Neuroscience Provider 04/02/23 09/29/24 Cheng Todd PA-C [address] [place] [address] [phone] Assigned PCP 04/30/23 07/15/23 Radha Lomeli, COUNTRY PRINTER APPRENTICE BREEDER HEN SERVICE TECHNICIAN [address] [place] [address] Assigned Heart and Vascular Provider 05/28/23 Jelena David OD [address] [place] [address] Ophthalmology 06/15/23 Pao Joseph, VJ Personal Advocate & Liaison (PAL) Nurse 08/01/23 11/07/23 Esha Grimm PA-C [address] [place] [phone] Assigned PCP 07/16/23 Valery Veronica PA-C [address] [place] [address] 726735 Physician Product Scientist Dermatology 09/19/23 Rey Tay MD [address] [place] [address] 639085 MD Gastroenterology 09/20/23 Rocky Zepeda DO [address] [place] [address] 633355 Physician Gastroenterology 09/20/23 Philip Dumont MD [address] [place] [address] 569745 Physician Ophthalmology 09/22/23 Meredith Carrera PA-C [address] [place] [address] 656445 Assigned Gastroenterology Provider 11/01/23 Neil Kent MD [address] [address] Dermatology 11/02/23 [place] [address] [place] [address] Neurological Surgery 12/26/23 Audrey Waite PA-C [address] [place] [address] Physician Product Scientist Dermatology 02/28/24 Valery Veronica PA-C [address] [place] [address] Physician Product Scientist Dermatology 04/10/24 Herminia Hatch MD [address] [place] [address] Assigned Rheumatology Provider 07/02/24 Jelena David OD [address] [place] [address] [place] [address] Ophthalmology 08/30/24 [place] [address] [place] [address] Assigned Neuroscience Provider 09/30/24 Maru Man PA-C [address] [place] [address] Physician Product Scientist Dermatology 10/03/24 Maru Man PA-C [address] [place] [address] Physician Product Scientist Dermatology 10/22/24 Jelena David OD [address] [place] [address] [place] [address] Assigned Surgical Provider 10/31/24 documented as of this encounter
--- OUTSIDE RECORDS SUMMARY | 2024-11-21 05:12 | XMS_ITS | Encounter Summary ---
Author Organization [facility] Address [address] [place] [address] Care Team Providers Care Mobile Service Rv Technician Name Role Phone Marija Edgar APRN SCRAP CRANE OPERATOR Primary Care Provider + Marija Edgar APRN SCRAP CRANE OPERATOR Unavailable [phone] Keisha Dotson MD Unavailable Diana Desir [facility] Unavailable [phone] Rain Galaviz PA-C Unavailable Tavia Wyatt MD Unavailable Erica Farrell APRN SCRAP CRANE OPERATOR Unavailable Rich Barrett MD Unavailable [phone] Neil Kent MD Unavailable Diana Desir [facility] Unavailable [phone] Livan Sharif MD Unavailable Catherine Cm MD Unavailable + Valery Veronica PA-C Unavailable Brea Quinn APRN SCRAP CRANE OPERATOR Unavailable [phone] Brea Quinn EMPLOYEE DEVELOPMENT SPECIALIST SCRAP CRANE OPERATOR Unavailable Jose Francisco Johnson MD Unavailable Catherine Cm MD Unavailable + Sydnie Martinez RN Unavailable Unavailable Alfonso Renteria MD Unavailable [phone] Esha Grimm PA-C Primary Care Provider Cheng Todd PA-C Unavailable Radha Lomeli APRN, CNP Unavailable Jelena David OD Unavailable Pao Joseph RN Unavailable Unavailable Esha Grimm PA-C Unavailable [phone] Valery Veronica PA-C Unavailable Rey Tay MD Unavailable Rocky Zepeda DO Unavailable Philip Dumont MD Unavailable Meredith Carrera PA-C Unavailable Neil Kent MD Unavailable Juan Pablo Emmanuel MD Unavailable Audrey Waite PA-C Unavailable JeremíasValery damon PA-C Unavailable Herminia Hatch MD Unavailable Jelena David OD Unavailable [phone] Juan Pablo Emmanuel MD Unavailable Maru Man PA-C Unavailable Maru Man PA-C Unavailable Jelena David OD Unavailable Encounter Details Date Type Department Care Team (Late st Contact Info) Description 03/29/[address] [place] [address] Diana Desir, [facility] [address] [place] [address] Social History Tobacco Use Types Packs/Day Years [...] you attend [facility] or faith services? 1 to 4 times [...] PHQ-2 Score 0 03/10/2023 [facility] of Occupat ional [facility] - Occupational Stress Questionnaire Answer [...] in a mcc (including now)? No 03/10/2023 [place] Depression Scale Answer Date Recorded [place] Depression Score 5 01/14/2021 Last EPDS Self Harm Result Not on file 01/14 Education Answer Date Recorded What is the highest level of school you have completed or the highest degree you have received? 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 Gender Identity Female 03/02/2021 5:45 PM [...] Upcoming Encounters Date Type Department Care Team ([facility] st Contact Info) Description 11/21/2024 7:00 AM CDT Office Visit [address] [phone] Maru Man PA-C [address] [place] [address] 12/20/2024 2:30 PM CDT Office Visit [facility] [id number] [place] [phone] Esha Grimm PA-C [address] [place] [phone] 04/16/2025 11:00 AM CDT Virtual Visit [facility] [address] 4th [place] [address] Meredith Carrera PA-C [address] [place] [address] 47[address] documented as of this encounter Visit Diagnoses [...] as of this encounter Care Teams Mobile Service Rv Technician Relationship Specialty Start Date End Date Marija Edgar APRN SCRAP CRANE OPERATOR PCP - General Nurse Practitioner 04/30/20 04/14/23 Esha Grimm PA-C [address] [place] [phone] PCP - General Family Medicine 05/04/23 Marija Edgar APRN SCRAP CRANE OPERATOR Assigned PCP 06/08/20 04/29/23 Keisha Dotson MD [address]09 [place], [place] 423885 Assigned Neuroscience Provider 06/04/20 04/01/23 Diana Desir, [facility] [address] [place] [address] Pharmacist Pharmacist 04/17/21 Rain Galaviz PA-C 5 [facility] [address] [facility] [place] [address] Physician Air Intercept Controller Supervisor Dermatology 04/28/21 Tavia Wyatt MD [address] [place] [address] [address] [place], [place] [phone] Dermatology 07/14/21 Erica Farrell APRN SCRAP CRANE OPERATOR [address] [place] [address] Nurse Practitioner Cardiovascular Disease 09/09/21 Rich Barrett MD [address] [place], [place] [address] Physician Ophthalmology 01/21/22 Neil Kent MD 500 [place], [place] 972445 Dermatology 02/24/22 [facility] [address] [place], [place] 7058[address] Assigned [place] Pharmacist 04/07/22 Livan Sharif MD [address] [place] [address] Cardiovascular Disease 05/14/22 Catherine Cm MD [address] [place] [address] Cardiovascular Disease 07/21/22 Valery Veronica, PA-C [address] [place] [address] Physician Air Intercept Controller Supervisor Dermatology 07/21/22 Brea Quinn APRN SCRAP CRANE OPERATOR 500 [place] [address] Nurse Practitioner Dermatology 09/21/22 Brea Quinn APRN SCRAP CRANE OPERATOR 6401 [facility] [place] [address] Assigned Surgical Provider 10/09/22 05/01/24 [place] [address] [place] [address] Assigned Musculoskeletal Provider 10/09/22 05/01/24 Catherine Cm MD [address] [facility] [address] [place] [address] Assigned Heart and Vascular Provider 11/13/22 05/27/23 Sydnie Martinez RN Personal Advocate & Liaison (PAL) Family Medicine 03/28/23 07/31/23 Alfonso Renteria MD 5775 [facility] 200 [place] [address] Assigned Neuroscience Provider 04/02/23 09/29/24 Cheng Todd PA-C [address] [place] [address] [phone] Assigned PCP 04/30/23 07/15/23 Radha Lomeli APRN SCRAP CRANE OPERATOR 6405 [facility] [address] [place] [address] Assigned Heart and Vascular Provider 05/28/23 Jelena David OD 3[address] [facility] [place] [address] MD Ophthalmology 06/15/23 Pao Joseph, RN Personal Advocate & Liaison (PAL) Nurse 08/01/23 11/07/23 Esha Grimm PA-C [address] [place] [phone] Assigned PCP 07/16/23 Valery Veronica PA-C [address] [place] [address] 882035 Physician Air Intercept Controller Supervisor Dermatology 09/19/23 Rey Tay MD [address] [place] [address] MD Gastroenterology 09/20/23 Rocky Zepeda DO [address] [place] [address] 531155 Physician Gastroenterology 09/20/23 Philip Dumont MD [address] [place] [address] 615145 Physician Ophthalmology 09/22/23 Meredith Carrera PA-C [address] [place] [address] Assigned Gastroenterology Provider 11/01/23 Neil Kent MD [address] 400770 Dermatology 11/02/23 [place] [address] [place] [place], [place] [address] Neurological Surgery 12/26/23 Audrey Waite PA-C 500 [place] [address] Physician Air Intercept Controller Supervisor Dermatology 02/28/24 Valery Veronica PA-C 9[address]906 [address] [place] [address] Physician Air Intercept Controller Supervisor Dermatology 04/10/24 Herminia Hatch MD [address] [place] [address] [phone] Assigned Rheumatology Provider 07/02/24 Jelena David OD [address] [place] [address] [place] [address] Ophthalmology 08/30/24 [place] [address] [place] [address] Assigned Neuroscience Provider 09/30/24 Maru Man PA-C [address] [place] [address] Physician Air Intercept Controller Supervisor Dermatology 10/03/24 Maru Man PA-C [address] [place] [address] Physician Air Intercept Controller Supervisor Dermatology 10/22/24 Jelena David OD [address] [place] [address] [place] [address] Assigned Surgical Provider 10/31/24 documented as of this encounter
--- OUTSIDE RECORDS SUMMARY | 2024-11-21 05:12 | XMS_ITS | Encounter Summary ---
Author Organization [place] Address [address] [place] [address] Care Team Providers Care Board Filler Name Role Phone Diana Desir [facility] Unavailable Rain Galaviz PA-C Unavailable Tavia Wyatt MD Unavailable Erica Farrell APRN SUBCONTRACT ADMINISTRATOR Unavailable Rich Barrett MD Unavailable [phone] Neil Kent MD Unavailable Diana Desir [facility] Unavailable Livan Sharif MD Unavailable Catherine Cm MD Unavailable + Valery Veronica PA-C Unavailable [phone] Brea Quinn LATEX SPOOLER SUBCONTRACT ADMINISTRATOR Unavailable Brea Quinn LATEX SPOOLER SUBCONTRACT ADMINISTRATOR Unavailable Jose Francisco Johnson MD Unavailable Alfonso Renteria MD Unavailable [phone] Esha Grimm PA-C Primary Care Provider [phone] Radha Lomeli APRN SUBCONTRACT ADMINISTRATOR Unavailable Jelena David OD Unavailable [phone] Esha Grimm PA-C Unavailable [phone] JeremíasValery damon PA-C Unavailable Rey Tay MD Unavailable Rocky Zepeda DO Unavailable Philip Dumont MD Unavailable Meredith Carrera PA-C Unavailable [phone] Neil Kent MD Unavailable Juan Pablo Emmanuel MD Unavailable Audrey Waite PA-C Unavailable [phone] JeremíasValery damon PA-C Unavailable Herminia Hatch MD Unavailable Jelena David OD Unavailable [phone] Juan Pablo Emmanuel MD Unavailable Maru Man PA-C Unavailable Maru Man PA-C Unavailable Jelena David OD Unavailable Encounter Details Date Type Department Care Team (Late st Contact Info) Description 03/19/2024 [facility] Medical Advice [facility] [address] 4th [place] [address] [place] Social History Tobacco [...] do you attend [facility] or tenriism services? 1 to 4 [...] 02/07/2024 [facility] [...] exercise at this level? 30 min 03/10/2023 Gambell Depression Scale Answer Date Recorded Gambell Depression Score 5 01/14/2021 Last EPDS Self [...] CDT Legal Sex Female 4:13 AM ELECTRONICS LEAD Gender Identity Female 03/02/2021 5:45 PM CDT Sexual Orientation Straight 02/28/2020 12 :51 AM CDT documented as of this encounter Plan of Treatment Upcoming Encounters Date Type Department Care Team (Late st Contact Info) Description 11/21/2024 7:00 AM CDT Office Visit [facility] [address] [phone] Maru Man PA-C [address] [address] 12/20/2024 2:30 PM CDT Office Visit [place] [address] [place] [phone] Esha Grimm PA-C [address] [place] [address] 04/16/2025 11:00 AM CDT Virtual Visit [facility] G[facility]ology Clinic [address] 4th [place] [phone] Meredith Carrera PA-C [address] [place] [address] documented as of this encounter Visit Diagnoses [...] documented as of this encounter Care Teams Board Filler Relationship Specialty Start Date End Date Esha Grimm PA-C [address] [place] [address] PCP - General Family Medicine 05/04/23 Diana Dseir, [facility] [address] [place] [address] Pharmacist Pharmacist 04/17/21 Rain Galaviz PA-C [address] [place] [address] DR AR[address] [facility] [place] [address] Physician Central Office Frame Wirer Dermatology 04/28/21 Tavia Wyatt MD [address] [place] [address] [address] [place] [id number] Dermatology 07/14/21 Erica Farrell APRN SUBCONTRACT ADMINISTRATOR [address] [place] [address] Nurse Practitioner Cardiovascular Disease 09/09/21 Rich Barrett MD [address] [place] 97[address]85 Physician Ophthalmology 01/21/22 Neil Kent MD [address] [place] [address] 486[address] MD Dermatology 02/24/22 Diana Desir, [facility] [address]33 [place], [place] 538836 Assigned [place] Pharmacist 04/07/22 Livan Sharif MD [address] [place] [address] Cardiovascular Disease 05/14/22 Catherine Cm MD [address] [place] [address] Cardiovascular Disease 07/21/22 Valery Veronica, PA-C [address] [place] [address] Physician Central Office Frame Wirer Dermatology 07/21/22 Brea Quinn APRN SUBCONTRACT ADMINISTRATOR 500 [place] [address] Nurse Practitioner Dermatology 09/21/22 Brea Quinn APRN SUBCONTRACT ADMINISTRATOR [address] [facility] [address] Assigned Surgical Provider 10/09/22 05/01/24 [place] [address] [facility] 300 [place] [address] Assigned Musculoskeletal Provider 10/09/22 05/01/24 Alfonso Renteria MD 5775 [facility] 200 [place], [place] 849706 Assigned Neuroscience Provider 04/02/23 09/29/24 Radha Lomeli APRN SUBCONTRACT ADMINISTRATOR [address] [facility] [address] [place] [address] Assigned Heart and Vascular Provider 05/28/23 Jelena David OD [address] [facility] [place] [address] Ophthalmology 06/15/23 Esha Grimm PA-C [address] [place] [phone] Assigned PCP 07/16/23 Valery Veronica PA-C 909 [place] [address] Physician Central Office Frame Wirer Dermatology 09/19/23 Rey Tay MD [address] [place] [address] MD Gastroenterology 09/20/23 Rocky Zepeda DO [address] [place] [address] Physician Gastroenterology 09/20/23 Philip Dumont MD [address] [place] [address] Physician Ophthalmology 09/22/23 Meredith Carrera PA-C [address] [place] [address] Assigned Gastroenterology Provider 11/01/23 Neil Kent MD [address] [address] Dermatology 11/02/23 [place] [address] [address] Neurological Surgery 12/26/23 Audrey Waite PA-C [address] [place] [address] Physician Central Office Frame Wirer Dermatology 02/28/24 Valery Veronica PA-C [address] [place] [address] Physician Central Office Frame Wirer Dermatology 04/10/24 Herminia Hatch MD [address] [place] [address] [id number] Assigned Rheumatology Provider 07/02/24 Jelena David OD 3305 [facility] [place] [address] Ophthalmology 08/30/24 [place] [address] [place] [address] Assigned Neuroscience Provider 09/30/24 Maru Man PA-C [address] [place] [address] Physician Central Office Frame Wirer Dermatology 10/03/24 Maru Man PA-C [address] [place] [address] Physician Central Office Frame Wirer Dermatology 10/22/24 Jelena David OD [address] [facility] [place] [address] Assigned Surgical Provider 10/31/24 documented as of this encounter
--- OUTSIDE RECORDS SUMMARY | 2024-11-21 05:12 | XMS_ITS | Encounter Summary ---
Author Organization [place] Address [address] [place] [address] Care Team Providers Care Roof Slater Name Role Phone Diana Desir [facility] Unavailable Rain Galaviz PA-C Unavailable Tavia Wyatt MD Unavailable Erica Farrell APRN CHANGE ATTENDANT Unavailable Rich Barrett MD Unavailable [phone] Neil Kent MD Unavailable Diana Desir [facility] Unavailable Livan Sharif MD Unavailable Catherine Cm MD Unavailable + Valery Veronica PA-C Unavailable [phone] Brea Quinn ATMOSPHERIC PHYSICS PROFESSOR CHANGE ATTENDANT Unavailable [phone] Brea Quinn ATMOSPHERIC PHYSICS PROFESSOR CHANGE ATTENDANT Unavailable Jose Francisco Johnson MD Unavailable Alfonso Renteria MD Unavailable [phone] Esha Grimm PA-C Primary Care Provider Radha Lomeli APRN CHANGE ATTENDANT Unavailable Jelena David OD Unavailable [phone] Esha Grimm PA-C Unavailable [phone] JeremíasValery damon PA-C Unavailable Rey Tay [...] PA-C Unavailable Jelena David OD Unavailable [phone] Encounter Details Date Type Department Care Team (Late st Contact Info) Description 03/06/2024 [facility]ine and Neurosurgery [address] [place] [phone] Ebony Cid APRN CHANGE ATTENDANT 500 [place] [address] Social History Tobacco Use Types [...] Score 1 02/07/2024 [facility] - Occupational Stress Questionnaire Answer [...] exercise at this level? 30 min 03/10/2023 [place] Depression Scale Answer Date Recorded [place] Depression Score 5 01/14/2021 Last EPDS Self [...] PM CDT Legal Sex Female 4:13 AM METHODS TIME ANALYST Gender Identity Female 03/02/2021 5:45 PM CDT Sexual Orientation Straight 02/28/2020 12 :51 AM CDT documented as of this encounter Plan of Treatment Upcoming Encounters Date Type Department Care Team (Late st Contact Info) Description 11/21/2024 7:00 AM CDT Office Visit [facility] [address] [phone] Maru Man PA-C [address] [address] 12/20/2024 2:30 PM CDT Office Visit [facility] [address] [place] [address] Esha Grimm PA-C [address] [place] [address] 04/16/2025 11:00 AM CDT Virtual Visit [facility] Gastroenterology Clinic [address] 4th [place] [phone] Meredith Carrera PA-C [address] [place] [address] 136295 documented as of this encounter Visit Diagnoses [...] documented as of this encounter Care Teams Roof Slater Relationship Specialty Start Date End Date Esha Grimm PA-C [address] [place] [address] PCP - General Family Medicine 05/04/23 Diana Desir, [facility] [address] [facility] [place] [address] Pharmacist Pharmacist 04/17/21 Rain Galaviz PA-C [address] [place] [address] [place] [address] Physician Chief Program Officer Dermatology 04/28/21 Tavia Wyatt MD [address] [place] [address] [address] [place] [address] Dermatology 07/14/21 Erica Farrell APRN CHANGE ATTENDANT [address] [place] [address] Nurse Practitioner Cardiovascular Disease 09/09/21 Rich Barrett MD [address] [place] [address] Physician Ophthalmology 01/21/22 Neil Kent MD [address] [place] [address] 564405 Dermatology 02/24/22 [facility] [address] [place] [address] Assigned [facility] Pharmacist 04/07/22 Livan Sharif MD [address] [place] [address] Cardiovascular Disease 05/14/22 Catherine Cm MD [address] [place] [address] Cardiovascular Disease 07/21/22 Valery Veronica, PA-C [address] [place] [address] 021235 Physician Chief Program Officer Dermatology 07/21/22 Brea Quinn APRN CHANGE ATTENDANT 500 [place], [place] 413385 Nurse Practitioner Dermatology 09/21/22 Brea Quinn APRN CHANGE ATTENDANT 6401 [place] [address] Assigned Surgical Provider 10/09/22 05/01/24 [place] [address] [place] [address] [address] Assigned Musculoskeletal Provider 10/09/22 05/01/24 Alfonso Renteria MD [address] 588136 Assigned Neuroscience Provider 04/02/23 09/29/24 Radha Lomeli APRN CHANGE ATTENDANT [address] [place] [phone] [place], [place] 047445 Assigned Heart and Vascular Provider 05/28/23 Jelena David OD [address] [facility] [place] [address] Ophthalmology 06/15/23 Esha Grimm PA-C [address] [place] [phone] Assigned PCP 07/16/23 Valery Veronica PA-C 9 [place] [address] Physician Chief Program Officer Dermatology 09/19/23 Rey Tay MD [address] [place] [address] MD Gastroenterology 09/20/23 Rocky Zepeda DO [address] [place] [address] Physician Gastroenterology 09/20/23 Philip Dumont MD [address] [place] [address] 335125 Physician Ophthalmology 09/22/23 Meredith Carrera PA-C [address] [place] [address] Assigned Gastroenterology Provider 11/01/23 Neil Kent MD [address] [place] [address] Dermatology 11/02/23 [place] [address] [place] [address] Neurological Surgery 12/26/23 Audrey Waite PA-C [address] [place] [address] Physician Chief Program Officer Dermatology 02/28/24 Valery Veronica PA-C 761759 99 [place] [address] Physician Chief Program Officer Dermatology 04/10/24 Herminia Hatch MD [facility]5 [place], [place] 61930125 Assigned Rheumatology Provider 07/02/24 Jelena David OD [address] [facility] [place] [address] Ophthalmology 08/30/24 [place] [address] [place] [address] Assigned Neuroscience Provider 09/30/24 Maru Man PA-C [address] [place] [address] Physician Chief Program Officer Dermatology 10/03/24 Maru Man PA-C [address] [place] [address] Physician Chief Program Officer Dermatology 10/22/24 Jelena David OD [address] [facility] [place] [address] Assigned Surgical Provider 10/31/24 documented as of this encounter
--- OUTSIDE RECORDS SUMMARY | 2024-11-21 05:13 | XMS_ITS | Encounter Summary ---
Author Organization [place] Address [address] [place] [address] Care Team Providers Care Engine Room Helper Name Role Phone Diana Desir [facility] Unavailable [phone] Rain Galaviz PA-C Unavailable Tavia Wyatt MD Unavailable Erica Farrell APRN MAIL LIST PROCESSOR Unavailable Rich Barrett MD Unavailable [phone] Neil Kent MD Unavailable Diana Desir [facility] Unavailable Livan Sharif MD Unavailable Catherine Cm MD Unavailable + Valery Veronica PA-C Unavailable Brea Quinn MEDICAL BILLING SPECIALIST MAIL LIST PROCESSOR Unavailable Brea Quinn MEDICAL BILLING SPECIALIST MAIL LIST PROCESSOR Unavailable Jose Francisco Johnson MD Unavailable Alfonso Renteria MD Unavailable [phone] Esha Grimm PA-C Primary Care Provider Radha Lomeli APRN MAIL LIST PROCESSOR Unavailable FrankieJelenae OD Unavailable [phone] Esha Grimm PA-C Unavailable [phone] Valery Veronica PA-C Unavailable Rey Tay [...] (Late st Contact Info) Description 12/21/2023 Telephone [facility] [address] [facility] [address] [place] [address] Livan Sharif MD 44[address] [facility] [address] [place] [address] Call Back (Schedule appt [...] you attend [facility] or gnosticist services? 1 to 4 [...] Answer Date Recorded PHQ-2 Score 1 10/24/2024 [facility] - Occupational Stress Questionnaire [...] exercise at this level? 20 min 05/07/2024 [place] Depression Scale Answer Date Recorded [place] Depression Score 5 01/14/2021 Last EPDS Self [...] PM CDT Legal Sex Female 4:13 AM CHAIN REPAIRER Gender Identity Female 03/02/2021 5:45 PM [...] on wait list for . Routing to apprentice technician. Carley ZABALA [facility] * Telephone Encounter - Sandra Whiting - 12/21/2023 12:34 PM CDT [facility] Call Center Phone Message May a [...] 7:00 AM CDT Office Visit [facility] [address] [phone] Maru Man PA-C [address] [address] 12/20/2024 2:30 PM CDT Office Visit [facility] [address] [place] [address] Esha Grimm PA-C [address] [place] [address] 04/16/2025 11:00 AM CDT Virtual Visit [facility] Gastroenterology Clinic [address] [place] [address] Meredith Carrera PA-C [address] [place] [address] documented as of this encounter Visit Diagnoses Not on filedocumented in this encounter Additional Health Concerns Infection Onset Date Last Indicated Resolved Time Rule Out COVID-19 12/26/2023 12/26/2023 12/26/2023 9:50 AM CDT Rule Out COVID-19 04/09/2024 04/09/2024 04/10/2024 6:48 PM CDT Rule Out COVID-19 10/04/2024 10/04/2024 10/05/2024 9:42 AM CDT Assessment Noted Time PHQ-9 Depression Total Score: 4 06/20/20 23 8:40 AM CHAIN REPAIRER documented as of this encounter Care Teams Engine Room Helper Relationship Specialty Start Date End Date Esha Grimm PA-C [address] [place] [address] PCP - General Family Medicine 05/04/23 Diana Desir [facility] [address] [place] [address] Pharmacist Pharmacist 04/17/21 Rain Galaviz PA-C [address] [place] [address] [address] [place] [address] Physician Pie Maker Dermatology 04/28/21 Tavia Wyatt MD [address] [place] [address] [address] [place] [address] Dermatology 07/14/21 Erica Farrell APRN MAIL LIST PROCESSOR [address] [place] [address] Nurse Practitioner Cardiovascular Disease 09/09/21 Rich Barrett MD [address] [place] [address] Physician Ophthalmology 01/21/22 Neil Kent MD 500 [place] [address] Dermatology 02/24/22 Diana Desir [facility] [address] [place] [address] Assigned MTM Pharmacist 04/07/22 Livan Sharif MD [address] [place] [address] Cardiovascular Disease 05/14/22 Catherine Cm MD [address] [facility] [address] [place] [address] Cardiovascular Disease 07/21/22 Valery Veronica PAUcheC [address] [place] [address] Physician Pie Maker Dermatology 07/21/22 Brea Quinn APRN MAIL LIST PROCESSOR [address] [place] [address] Nurse Practitioner Dermatology 09/21/22 Brea Quinn APRN MAIL LIST PROCESSOR [address] [place] [address] Assigned Surgical Provider 10/09/22 05/01/24 [place] [address] [facility] 300 [place] [address] Assigned Musculoskeletal Provider 10/09/22 05/01/24 Alfonso Renteria MD 5775 [facility] 200 [place] [address] Assigned Neuroscience Provider 04/02/23 09/29/24 Radha Lomeli APRN MAIL LIST PROCESSOR [address] [place] 9098100 [place] [address] Assigned Heart and Vascular Provider 05/28/23 Jelena David OD [address] [facility] [place] [address] MD Ophthalmology 06/15/23 Esha Grimm PA-C [address] [place] [address]83 Assigned PCP 07/16/23 Valery Veronica PA-C [address] [place] [address] Physician Pie Maker Dermatology 09/19/23 Rey Tay MD [address] [place] [address] MD Gastroenterology 09/20/23 Rocky Zepeda DO [address] [place] [address] Physician Gastroenterology 09/20/23 Philip Dumont MD [address] [place] [address] Physician Ophthalmology 09/22/23 Meredith Carrera PA-C [address] [place] [address] Assigned Gastroenterology Provider 11/01/23 Neil Kent MD [address] [place] [address] 290480 Dermatology 11/02/23 [place] [address] [place] [address] Neurological Surgery 12/26/23 Audrey Waite PA-C 500 [place] [address] Physician Pie Maker Dermatology 02/28/24 Valery Veronica PA-C [address] [place] [address] Physician Pie Maker Dermatology 04/10/24 Herminia Hatch MD [facility]5 [place], [place] [address] Assigned Rheumatology Provider 07/02/24 Jelena David OD [address] [facility] [place] [address] Ophthalmology 08/30/24 [place] [address] [place] [address] Assigned Neuroscience Provider 09/30/24 Maru Man PA-C [address] [place] [address] Physician Pie Maker Dermatology 10/03/24 Maru Man PA-C [address] [place] [address] Physician Pie Maker Dermatology 10/22/24 documented as of this encounter
--- OUTSIDE RECORDS SUMMARY | 2024-11-21 05:13 | XMS_ITS | Encounter Summary ---
Author Organization [place] Address [address] [place] [address] Care Team Providers Care Treasury Consultant Name Role Phone Diana Desir [facility] Unavailable [phone] Rain Galaviz PA-C Unavailable Tavia Wyatt MD Unavailable Erica Farrell APRN TERRITORY OUTSIDE SALES MANAGER Unavailable Rich Barrett MD Unavailable [phone] Neil Kent MD Unavailable Diana Desir [facility] Unavailable [phone] Livan Sharif MD Unavailable Catherine Cm MD Unavailable + Valery Veronica PA-C Unavailable Brea Quinn BONE DRIER OPERATOR TERRITORY OUTSIDE SALES MANAGER Unavailable Brea Quinn BONE DRIER OPERATOR TERRITORY OUTSIDE SALES MANAGER Unavailable [phone] Jose Francisco Johnson MD Unavailable Alfonso Renteria MD Unavailable [phone] Esha Grimm PA-C Primary Care Provider [phone] Radha Lomeli APRN TERRITORY OUTSIDE SALES MANAGER Unavailable Jelena David OD Unavailable [phone] Esha Grimm PA-C Unavailable [phone] Valery Veronica PA-C Unavailable Rey Tay MD Unavailable Rocky Zepeda DO Unavailable Philip Dumont MD Unavailable [phone] Meredith Carrera PA-C Unavailable [phone] Neil Kent MD Unavailable Juan Pablo Emmanuel MD Unavailable Audrey Waite PA-C Unavailable [phone] JeremíasValery damon PA-C Unavailable [phone] Herminia Hatch MD Unavailable Jelena David OD Unavailable Juan Pablo Emmanuel MD Unavailable Maru Man PA-C Unavailable Maru Man PA-C Unavailable Jelena David OD Unavailable [phone] Encounter Details Date Type Department Care Team (Late st Contact Info) Description 11/15/2023 [facility] Medical Advice [facility] [address] [address] Vivian Grant Social History Tobacco Use Types [...] Score 0 10/25/2023 [facility] [...] CDT Legal Sex Female 4:13 AM LPN CARE MANAGER Gender Identity Female 03/02/2021 5:45 PM CDT Sexual Orientation Straight 02/28/2020 12 :51 AM CDT documented as of this encounter Plan of Treatment Upcoming Encounters Date Type Department Care Team (Late st Contact Info) Description 11/21/2024 7:00 AM CDT Office Visit [facility] [address] [phone] Maru Man PA-C [address] [address] 12/20/2024 2:30 PM CDT Office Visit [address] [phone] Esha Grimm PA-C [address] [place] [address] 04/16/2025 11:00 AM CDT Virtual Visit [facility] [address] 4th [place] [phone] Meredith Carrera PA-C [address]09 [place], [place] 205615 documented as of this encounter Visit Diagnoses [...] Score: 4 06/20/20 23 8:40 AM LPN CARE MANAGER documented as of this encounter Care Teams Treasury Consultant Relationship Specialty Start Date End Date Esha Grimm PA-C [address] [place] [address] PCP - General Family Medicine 05/04/23 Diana Desir, [facility] [address] [place], [place] [address] Pharmacist Pharmacist 04/17/21 Rain Galaviz PA-C [address] [place] [address] [address] [facility] [place] [id number] Physician Microsoft Solutions Architect Dermatology 04/28/21 Tavia Wyatt MD [address] [place] [address] DR RAZO [facility] [place] [id number] Dermatology 07/14/21 Erica Farrell APRN TERRITORY OUTSIDE SALES MANAGER [address] [place] [address] Nurse Practitioner Cardiovascular Disease 09/09/21 Rich Barrett MD [address] [place] [address] Physician Ophthalmology 01/21/22 Neil Kent MD [address] [place] [address] 704165 Dermatology 02/24/22 [facility] [address] [place], [place] [address]026 Assigned [place] Pharmacist 04/07/22 Livan Sharif MD [address] [facility] [place] [id number] Cardiovascular Disease 05/14/22 Catherine Cm MD [address] [facility] [place] [id number] Cardiovascular Disease 07/21/22 Valery Veronica, PA-C 909 [place], [place] 387[address] Physician [employer] Solutions Architect Dermatology 07/21/22 Brea Quinn APRN TERRITORY OUTSIDE SALES MANAGER 500 [place] [address] Nurse Practitioner Dermatology 09/21/22 Brea Quinn APRN TERRITORY OUTSIDE SALES MANAGER 6401 [place] [address] Assigned Surgical Provider 10/09/22 05/01/24 [place] [address] [facility] [address] [place] [address] Assigned Musculoskeletal Provider 10/09/22 05/01/24 Alfonso Renteria MD [address] [facility] 200 [place], [place] 469156 Assigned Neuroscience Provider 04/02/23 09/29/24 Radha Lomeli APRN TERRITORY OUTSIDE SALES MANAGER [address] [address] Assigned Heart and Vascular Provider 05/28/23 Jelena David OD [address] [facility] [place] [address] Ophthalmology 06/15/23 Esha Grimm PA-C [address] [place] [phone] Assigned PCP 07/16/23 Valery Veronica PA-C 909 [place], [place] 642315 Physician [employer] Solutions Architect Dermatology 09/19/23 Rey Tay MD [address] [place] [address] MD Gastroenterology 09/20/23 Rocky Zepeda DO [address] [place] [address] 823925 Physician Gastroenterology 09/20/23 Philip Dumont MD [address] [place] [address] 199245 Physician Ophthalmology 09/22/23 Meredith Carrera PA-C [address] [place] [address] 538215 Assigned Gastroenterology Provider 11/01/23 Neil Kent MD [address] [place] [address] Dermatology 11/02/23 [place] [address] [facility] [place] [address] Neurological Surgery 12/26/23 Audrey Waite PA-C [address] [place] [address] Physician [employer] Solutions Architect Dermatology 02/28/24 Valery Veronica PA-C 908941 [address], [place] [address] Physician [employer] Solutions Architect Dermatology 04/10/24 Herminia Hatch MD [address] [place] [address] Assigned Rheumatology Provider 07/02/24 Jelena David OD [address] [facility] [place] [address] Ophthalmology 08/30/24 [place] [address] [place] [address] Assigned Neuroscience Provider 09/30/24 Maru Man PA-C [address] [place] [address] Physician [employer] Solutions Architect Dermatology 10/03/24 Maru Man PA-C [address] [place] [address] Physician [employer] Solutions Architect Dermatology 10/22/24 Jelena David OD [address] [facility] [place] [address] Assigned Surgical Provider 10/31/24 documented as of this encounter
--- OUTSIDE RECORDS SUMMARY | 2024-11-21 05:13 | XMS_ITS | Encounter Summary ---
Author Organization [place] Address [address] [place] [address] Care Team Providers Care Heavy Equipment Plumbing Supervisor Name Role Phone Diana Desir [facility] Unavailable [phone] Rain Galaviz PA-C Unavailable Tavia Wyatt MD Unavailable Erica Farrell APRN ENVELOPE MACHINE OPERATOR Unavailable Rich Barrett MD Unavailable [phone] Neil Kent MD Unavailable Diana Desir [facility] Unavailable [phone] Livan Sharif MD Unavailable Catherine Cm MD Unavailable + Valery Veronica PA-C Unavailable Brea Quinn LINUX NETWORK ENGINEER ENVELOPE MACHINE OPERATOR Unavailable Brea Quinn LINUX NETWORK ENGINEER ENVELOPE MACHINE OPERATOR Unavailable Jose Francisco Johnson MD Unavailable Alfonso Renteria MD Unavailable [phone] Esha Grimm PA-C Primary Care Provider [phone] Radha Lomeli APRN ENVELOPE MACHINE OPERATOR Unavailable Jelena David OD Unavailable Pao Joseph RN Unavailable Unavailable AlfaJesusEsha M PA-C Unavailable [phone] Valery Veronica PA-C Unavailable [phone] Rey Tay MD Unavailable Rocky Zepeda DO Unavailable Philip Dumont MD Unavailable [phone] Meredith Carrera PA-C Unavailable [phone] Neil Kent MD Unavailable Juan Pablo Emmanuel MD Unavailable [phone] Audrey Waite PA-C Unavailable [phone] JeremíasValery damon PA-C Unavailable [phone] Herminia Hatch MD Unavailable Jelena David OD Unavailable Juan Pablo Emmanuel MD Unavailable [phone] Maru Man PA-C Unavailable Maru Man PA-C Unavailable [phone] Jelena David OD Unavailable Encounter Details Date Type Department Care Team (Late st Contact Info) Description 10/26/2023 [facility] Medical Advice [facility] [address] 4th [place] [address] Wesley Powell Social History Tobacco [...] exercise at this level? 30 min 03/10/2023 [place] Depression Scale Answer Date Recorded [place] Depression Score 5 01/14/2021 Last EPDS [...] CDT Legal Sex Female 4:13 AM SUPERVISOR FURNACE ROOM Gender Identity Female 03/02/2021 5:45 PM CDT Sexual Orientation Straight 02/28/2020 12 :51 AM CDT documented as of this encounter Plan of Treatment Upcoming Encounters Date Type Department Care Team (Late st Contact Info) Description 11/21/2024 7:00 AM CDT Office Visit [facility] [address] [address] Maru Man PA-C [address] [address] 12/20/2024 2:30 PM CDT Office Visit [facility] [address] [place] [phone] Esha Grimm PA-C [address] [place] [phone] 04/16/2025 11:00 AM CDT Virtual Visit [facility] Gastro[facility]ology Clinic [address] [place] [phone] Meredith Carrera PA-C [address] [place] [address] 871745 documented as of this encounter Visit Diagnoses [...] Score: 4 06/20/20 23 8:40 AM SUPERVISOR FURNACE ROOM documented as of this encounter Care Teams Heavy Equipment Plumbing Supervisor Relationship Specialty Start Date End Date Esha Grimm PA-C [address] [place] [phone] PCP - General Family Medicine 05/04/23 Diana Desir, [facility] [address] [facility] [place] [address] Pharmacist Pharmacist 04/17/21 Rain Galaviz PA-C [address] [place] [address] [place] [address] Physician China Decorator Dermatology 04/28/21 Tavia Wyatt MD [address] [place] [address] [address] [place] [address] Dermatology 07/14/21 Erica Farrell APRN ENVELOPE MACHINE OPERATOR [address] [place] [address] Nurse Practitioner Cardiovascular Disease 09/09/21 Rich Barrett MD [address] [place] [address]115 Physician Ophthalmology 01/21/22 Neil Kent MD [address] [place] [address] 180665 Dermatology 02/24/22 [facility] [address] [place] [address] 650386 Assigned [facility] Pharmacist 04/07/22 Livan Sharif MD [address] [place] [address] Cardiovascular Disease 05/14/22 Catherine Cm MD [address] [place] [address] Cardiovascular Disease 07/21/22 Valery Veronica, PA-C [address] [place] [address] 371585 Physician China Decorator Dermatology 07/21/22 Brea Quinn APRN ENVELOPE MACHINE OPERATOR 500 [place], [place] 501675 Nurse Practitioner Dermatology 09/21/22 Brea Quinn APRN ENVELOPE MACHINE OPERATOR 6401 [place] [address] Assigned Surgical Provider 10/09/22 05/01/24 [place] [address] [address] [address] Assigned Musculoskeletal Provider 10/09/22 05/01/24 Alfonso Renteria MD 5775 [facility] 200 [place], [place] 824546 Assigned Neuroscience Provider 04/02/23 09/29/24 Radha Lomeli APRN ENVELOPE MACHINE OPERATOR [address] [place] [id number] [place] [address] Assigned Heart and Vascular Provider 05/28/23 Jelena David OD [address] [facility] [place] [address] Ophthalmology 06/15/23 Pao Joseph, RN Personal Advocate & Liaison (PAL) Nurse 08/01/23 11/07/23 Esha Grimm PA-C [address] [place] [address]433[address] Assigned PCP 07/16/23 Valery Veronica PA-C [address] [place] [address] Physician China Decorator Dermatology 09/19/23 Rey Tay MD [address] [place] [address] MD Gastroenterology 09/20/23 Rocky Zepeda DO [address] [place] [address] Physician Gastroenterology 09/20/23 Philip Dumont MD [address] [place] [address] Physician Ophthalmology 09/22/23 Meredith Carrera PA-C [address] [place] [address] Assigned Gastroenterology Provider 11/01/23 Neil Kent MD [address] [address] Dermatology 11/02/23 [place] [address] [place] [address] Neurological Surgery 12/26/23 Audrey Waite PA-C [address] [place] [address] 657885 Physician China Decorator Dermatology 02/28/24 Valery Veronica PA-C [id number] [address] [place] [address] Physician China Decorator Dermatology 04/10/24 Herminia Hatch MD [facility] [place], [place] [phone] Assigned Rheumatology Provider 07/02/24 Jelena David OD [address] [facility] [place] [address] Ophthalmology 08/30/24 [place] [address] [place] [address] Assigned Neuroscience Provider 09/30/24 Maru Man PA-C [address] [place] [address] Physician China Decorator Dermatology 10/03/24 Maru Man PA-C [address] [place] [address] Physician China Decorator Dermatology 10/22/24 Jelena David OD [address] [facility] [place] [address] Assigned Surgical Provider 10/31/24 documented as of this encounter
--- OUTSIDE RECORDS SUMMARY | 2024-11-21 05:13 | XMS_ITS | Encounter Summary ---
Author Organization [place] Address [address] [place] [address] Care Team Providers Care Front End Application Developer Name Role Phone Lita Oseguera Unavailable Unavailable Marija Edgar APRN SCHOOL DIRECTOR Primary Care Provider + Chanelle Mccann APRN CNM Unavailab le Kyara De La Fuente RN Unavailable [phone] Marija Edgar APRN SCHOOL DIRECTOR Unavailable [phone] Mynor Broussard MD Unavailable [phone] Keisha Dotson MD Unavailable Mary Mejia Unavailable Unavailable Stacey Briones PUMP AND BLOWER OPERATOR Unavailable [phone] Lesley Guillermo CHW Unavailable Mary Mejia Unavailable Unavailable Lita Oseguera Unavailable Unavailable Galo Burrell MD Unavailable Unavailable Cristina Wood Unavailable Lesley Guillermo CHW Unavailable Meredith Bedoya Unavailable Unavailable Cristina Wood Unavailable Diana Desir [facility] Unavailable [phone] Ruhland, Rain Lena PA-C Unavailable Summer Lara MD Unavailable [phone] Summer Lara MD Unavailable [phone] Summer Lara MD Unavailable [phone] Tavia Wyatt MD Unavailable [phone] Johnny Murillo MD Unavailable [phone] Erica Farrell APRN SCHOOL DIRECTOR Unavailable VikasTeresita H Unavailable Tavia Wyatt MD Unavailable [phone] Diana Desir [facility] Unavailable [phone] Rich Barrett MD Unavailable [phone] Neil Kent MD Unavailable Roney Story [facility] Unavailable Erica Farrell APRN SCHOOL DIRECTOR Unavailable Diana Desir [facility] Unavailable [phone] Jelena David OD Unavailable Galo Burrell MD Unavailable Unavailable Livan Sharif MD Unavailable Livan Sharif MD Unavailable Catherine Cm MD Unavailable + Valery Veronica PA-C Unavailable [phone] Catherine Cm MD Unavailable + Johnny Murillo MD Unavailable +[phone] Brea Quinn APRN SCHOOL DIRECTOR Unavailable [phone] Brea Quinn RESIDENTIAL COORDINATOR SCHOOL DIRECTOR Unavailable [phone] Jose Francisco Johnson MD Unavailable Livan Sharif MD Unavailable Catherine Cm MD Unavailable + Sydnie Martinez RN Unavailable Unavailable Alfonso Renteria MD Unavailable [phone] Esha Grimm PA-C Primary Care Provider Cheng Todd PA-C Unavailable Radha Lomeli APRN, CNP Unavailable Jelena David OD Unavailable [phone] Pao Joseph RN Unavailable Unavailable Esha Grimm PA-C Unavailable [phone] Valery Veronica PA-C Unavailable Rey Tay MD Unavailable Rocky Zepeda DO Unavailable Philip Dumont MD Unavailable [phone] Meredith Carrera PA-C Unavailable [phone] Neil eKnt MD Unavailable Juan Pablo Emmanuel MD Unavailable Audrey Waite PA-C Unavailable Valery Veronica PA-C Unavailable Herminia Hatch MD Unavailable Jelena David OD Unavailable Juan Pablo Emmanuel MD Unavailable Maru Man PA-C Unavailable [phone] Maru Man PA-C Unavailable [phone] Jelena David OD Unavailable Encounter Details Date Type Department Care Team (Latest Contact Info) Description 07/29/2020 [facility] [address] [place] [phone] Marija Edgar APRN SCHOOL DIRECTOR [address] [place] [phone] Palpitations (Primary Dx) Social History Tobacco Use [...] PM CDT Legal Sex Female 4:13 AM TRAFFIC CHIEF Gender Identity Female 03/02/2021 5:45 PM CDT Sexual Orientation Straight 02/28/2020 12 :51 AM CDT COVID-19 Exposure Response Date Recorded In the last month, have you been in contact with someone who was confirmed or suspected to have Coronavirus / COVID-19? No / Unsure 07/30/2020 4:53 PM TRAFFIC CHIEF documented as of this encounter Miscellaneous Notes * Telephone Encounter - Marija Edgar APRN CNP - 07/30/2020 10:21 AM TRAFFIC CHIEF Responded via [employer] Marija Edgar APRN CNP on 07/30/2020 at 10:28 AM FIC CHIEF documented in this encounter Plan of Treatment Upcoming Encounters Date Type Department Care Team (Late st Contact Info) Description 11/21/2024 7:00 AM CDT Office Visit [address] [phone] Maru Man PA-C [address] [address] 12/20/2024 2:30 PM CDT Office Visit [address] [phone] Esha Grimm PA-C [address] [place] [address] 04/16/2025 11:00 AM CDT Virtual Visit [facility] Gastro[facility]ology Clinic [address] [place] [phone] Meredith Carrera PA-C 909 [place] [address] documented as of this encounter Visit Diagnoses Diagnosis Palpitations- Primary documented in this encounter Additional Health Concerns Infection Onset Date Last Indicated Resolved Time Rule Out COVID-19 07/30/2020 07/30/2020 07/30/2020 7:11 PM TRAFFIC CHIEF Rule Out COVID-19 08/30/2020 08/30/2020 08/30/2020 5:05 PM TRAFFIC CHIEF Rule Out COVID-19 09/24/2020 09/24/2020 09/24/2020 9:24 AM CDT Rule Out COVID-19 11/05/2020 11/05/2020 11/06/2020 1:09 PM CDT Rule Out COVID-19 05/11/2021 05/11/2021 05/13/2021 10:18 AM CDT Rule Out COVID-19 07/13/2021 07/13/2021 07/14/2021 3:04 PM TRAFFIC CHIEF Rule Out COVID-19 07/18/2021 07/18/2021 07/20/2021 1:56 PM TRAFFIC CHIEF COVID-19 07/18/2021 07/18/2021 08/08/2021 11:3 9 PM TRAFFIC CHIEF Rule Out COVID-19 12/18/2021 12/18/2021 12/19/2021 11:34 AM CDT Rule Out COVID-19 02/24/2022 02/24/2022 02/25/2022 1:08 PM CDT Rule Out COVID-19 04/26/2022 04/26/2022 04/26/2022 6:47 AM CDT Rule Out COVID-19 05/17/2022 05/17/2022 05/17/2022 10:20 PM TRAFFIC CHIEF Rule Out COVID-19 06/09/2022 06/09/2022 06/09/2022 9:35 AM TRAFFIC CHIEF COVID-19 06/09/2022 06/09/2022 06/30/2022 11:4 1 PM TRAFFIC CHIEF Rule Out COVID-19 11/10/2022 11/10/2022 11/11/2022 12:17 PM CDT Rule Out COVID-19 03/07/2023 03/07/2023 03/07/2023 1:20 PM CDT Rule Out COVID-19 12/26/2023 12/26/2023 12/26/2023 9:50 AM CDT Rule Out COVID-19 04/09/2024 04/09/2024 04/10/2024 6:48 PM CDT Rule Out COVID-19 10/04/2024 10/04/2024 10/05/2024 9:42 AM CDT Rule Out COVID-19 11/20/2024 11/20/2024 Assessment Noted Time PHQ-9 Depression Total Score: 9 06/25/20 20 7:04 AM TRAFFIC CHIEF documented as of this encounter Care Teams Front End Application Developer Relationship Specialty Start Date End Date Marija Edgar APRN SCHOOL DIRECTOR PCP - General Nurse Practitioner 04/30/20 04/14/23 Esha Grimm PA-C [address] [place] [phone] PCP - General Family Medicine 05/04/23 Lita Oseguera Personal Advocate & Liaison (PAL) 02/28/20 03/27/23 Chanelle Mccann APRN CNAdam [address] [address] Assigned OBGYN Provider 05/02/2005/09 Kyara De La Fuente, RN Specialty [facility] Tanner Neurology 06/04/20 03/05/21 Marija Edgar APRN CNP Assigned PCP 06/08/20 04/29/23 Mynor Broussard MD [address] [address] Assigned Surgical Provider 06/01/20 11/28/21 Keisha Dotson MD 909 [place], [place] 926275 Assigned Neuroscience Provider 06/04/20 04/01/23 Mary Mejia Financial Resource Worker 08/07/20 08/21/20 Stacey Briones, [facility] Lead [facility] Primary Care - CC 08/11/2012/30 Lesley Guillermo, [facility] Community Health Worker 08/11/2010/01 Mary Mejia Financial Resource Worker 09/02/20 10/06/20 Lita Oseguera Personal Advocate & Liaison (PAL) Family Medicine 09/10/20 09/21/20 Galo Burrell MD Assigned Heart and Vascular Provider 10/05/20 04/02/22 Cristina Wood Financial Resource Worker 10/07/20 10/14/20 Lesley Guillermo, [facility] Community Health Worker 10/23/2012/30 Meredith Bedoya Financial Resource Worker 10/23/20 11/23/20 Cristina Wood Financial Resource Worker 02/09/21 02/09/21 Thang Diana T, [facility] [address] [place] [address] Pharmacist Pharmacist 04/17/21 Rain Galaviz PA-C [address] [place] [address] [address] [place], [place] [phone] Physician Instructor Kindergarten Dermatology 04/28/21 Summer Lara MD [address] [place] [address] 045794 Assigned OBGYN Provider 05/10/2105/23 Summer Lara MD [address] [place] [address] 756504 Assigned OBGYN Provider 05/31/21 Summer Lara MD [address] [place] [address] 138994 Assigned OBGYN Provider 05/24/2105/30 Tavia Wyatt MD [address] [place] [address] 293974 Dermatology 07/14/21 Johnny Murillo MD [address] [place], [place] 510264 Assigned Musculoskeletal Provider 08/30/21 03/17/22 Erica Farrell APRN SCHOOL DIRECTOR [address] [facility] [address] [place], [place] 219515 Nurse Practitioner Cardiovascular Disease 09/09/21 Teresita Bean [facility] [address] [place] [phone] Pharmacist Pharmacist 09/24/21 09/29/21 Tavia Wyatt MD [address] [place] [address] Assigned Surgical Provider 11/29/21 05/07/22 Diana Desir, [facility] [place] [address] Assigned MTM Pharmacist 01/02/22 Rich Barrett MD [facility] [place] [address] Physician Ophthalmology 01/21/22 Neil Kent MD 500 [place], [place] [phone] Dermatology 02/24/22 Roney Story DPM [address] [facility] [address] [place], [place] [phone] Assigned Musculoskeletal Provider 03/20/22 08/13/22 Erica Farrell APRN SCHOOL DIRECTOR 17[address] [place] [address] Assigned Heart and Vascular Provider 04/03/22 04/16/22 Diana Desir, [facility] [place] [address] Assigned MTM Pharmacist 04/07/22 Jelena David OD [address] [facility] [place] [address] Assigned Surgical Provider 05/08/22 10/08/22 Galo Burrell MD Assigned Heart and Vascular Provider 04/17/22 06/11/22 Livan Sharif MD [address] [place] [address] Cardiovascular Disease 05/14/22 Livan Sharif MD [address] [place] [address] Assigned Heart and Vascular Provider 06/12/22 07/23/22 Catherine Cm MD [address] [place] [address] Cardiovascular Disease 07/21/22 Valery Veronica, PA-C 909 [place] [address] Physician Instructor Kindergarten Dermatology 07/21/22 Catherine Cm MD [address] [place] [address] Assigned Heart and Vascular Provider 07/24/22 11/05/22 Johnny Murillo MD [address] [facility] [address] [place] [address] Assigned Musculoskeletal Provider 08/14/22 10/08/22 Brea Quinn APRN SCHOOL DIRECTOR [address] [place] [address] Nurse Practitioner Dermatology 09/21/22 Brea Quinn APRN SCHOOL DIRECTOR 6401 [facility] [place] [address] Assigned Surgical Provider 10/09/22 05/01/24 [place] [address] [place] [facility] 300 [place] [address] Assigned Musculoskeletal Provider 10/09/22 05/01/24 Livan Sharif MD [address] [facility] [address] [place] [address] Assigned Heart and Vascular Provider 11/06/22 11/12/22 Catherine Cm MD [address] [facility] [address] [place] [address] Assigned Heart and Vascular Provider 11/13/22 05/27/23 Sydnie Martinez RN Personal Advocate & Liaison (PAL) Family Medicine 03/28/23 07/31/23 Alfonso Renteria MD [address] [facility] 200 [place], [place] 175086 Assigned Neuroscience Provider 04/02/23 09/29/24 Cheng Todd PA-C [address] [place] [address] Assigned PCP 04/30/23 07/15/23 Radha Lomeli APRN SCHOOL DIRECTOR [address] [place], [place] 457785 Assigned Heart and Vascular Provider 05/28/23 Jelena David OD [address] [facility] [place] [address] MD Ophthalmology 06/15/23 Pao Joseph, VJ Personal Advocate & Liaison (PAL) Nurse 08/01/23 11/07/23 Esha Grimm PA-C [address] [place] [address] Assigned PCP 07/16/23 Valery Veronica PA-C [address] [place] [address] 280075 Physician Instructor Kindergarten Dermatology 09/19/23 Rey Tay MD [address] [place] [address] 600545 Gastroenterology 09/20/23 Rocky Zepeda DO [address] [place] [address] 786965 Physician Gastroenterology 09/20/23 Philip Dumont MD [address] [place] [address] 310865 Physician Ophthalmology 09/22/23 Meredith Carrera PA-C [address] [place] [address] 862045 Assigned Gastroenterology Provider 11/01/23 Neil Kent MD [address] [place] [address] Dermatology 11/02/23 [place] [address] [place] [place] [address] Neurological Surgery 12/26/23 Audrey Waite PA-C [address] [place] [address] Physician Instructor Kindergarten Dermatology 02/28/24 Valery Veronica PA-C 260064 [place] [address] Physician Instructor Kindergarten Dermatology 04/10/24 Herminia Hatch MD [address] [place] [address] Assigned Rheumatology Provider 07/02/24 Jelena David OD [address] [place] [address] [place] [address] Ophthalmology 08/30/24 [place] [address] [place] [address] Assigned Neuroscience Provider 09/30/24 Maru Man PA-C [address] [place] [address] Physician Instructor Kindergarten Dermatology 10/03/24 Maru Man PA-C [address] [place] [address] Physician Instructor Kindergarten Dermatology 10/22/24 Jelena David OD [address] [facility] [place] [address] Assigned Surgical Provider 10/31/24 documented as of this encounter
--- OUTSIDE RECORDS SUMMARY | 2024-11-21 05:13 | XMS_ITS | Encounter Summary ---
Author Organization [place] Address [address] [place] [address] Care Team Providers Care Theology Professor Name Role Phone Diana Desir [facility] Unavailable Rain Galaviz PA-C Unavailable Tavia Wyatt MD Unavailable Erica Farrell APRN CLAIMS CORRESPONDENCE CLERK Unavailable Rich Barrett MD Unavailable [phone] Neil Kent MD Unavailable Diana Desir [facility] Unavailable Livan Sharif MD Unavailable Catherine Cm MD Unavailable + Valery Veronica PA-C Unavailable Brea Quinn SOCIAL SCIENCES RESEARCH SCIENTIST CLAIMS CORRESPONDENCE CLERK Unavailable [phone] Brea Quinn SOCIAL SCIENCES RESEARCH SCIENTIST CLAIMS CORRESPONDENCE CLERK Unavailable Jose Francisco Johnson MD Unavailable Alfonso Renteria MD Unavailable [phone] Esha Grimm PA-C Primary Care Provider [phone] Radha Lomeli APRN CLAIMS CORRESPONDENCE CLERK Unavailable Jelena David OD Unavailable [phone] Esha Grimm PA-C Unavailable [phone] JeremíasValery damon PA-C Unavailable Rey Tay MD Unavailable Rocky Zepeda DO Unavailable Philip Dumont MD Unavailable Meredith Carrera PA-C Unavailable [phone] Neil Kent MD Unavailable Juan Pablo Emmanuel MD Unavailable Audrey Waite PA-C Unavailable [phone] JeremíasValery damon PA-C Unavailable Herminia Hatch MD Unavailable Jelena David OD Unavailable Juan Pablo Emmanuel MD Unavailable Maru Man PA-C Unavailable Maru Man PA-C Unavailable Jelena David OD Unavailable Encounter Details Date Type Department Care Team (Late st Contact Info) Description 11/21/2023 [facility] Medical Advice [facility] Gastroenterology Clinic [address] [place] [address] Sofia Alcantar Social History Tobacco [...] Score 0 10/25/2023 [facility]ational [...] exercise at this level? 30 min 03/10/2023 [place] Depression Scale Answer Date Recorded [place] Depression Score 5 01/14/2021 Last EPDS Self [...] PM CDT Legal Sex Female 4:13 AM TRIMMER OPERATOR Gender Identity Female 03/02/2021 5:45 PM CDT Sexual Orientation Straight 02/28/2020 12 :51 AM CDT documented as of this encounter Plan of Treatment Upcoming Encounters Date Type Department Care Team (Late st Contact Info) Description 11/21/2024 7:00 AM CDT Office Visit [facility] [address] [phone] Maru Man PA-C [address] [address] 12/20/2024 2:30 PM CDT Office Visit [address] [place] [phone] Esha Grimm PA-C [address] [place] [address] 04/16/2025 11:00 AM CDT Virtual Visit [facility] Gastroenterology Clinic [address] 4th [place] [phone] Meredith Carrera PA-C [address] [place] [address] 338295 documented as of this encounter Visit Diagnoses [...] Total Score: 4 06/20/20 23 8:40 AM TRIMMER OPERATOR documented as of this encounter Care Teams Theology Professor Relationship Specialty Start Date End Date Esha Grimm PA-C [address] [place] [address] PCP - General Family Medicine 05/04/23 Diana Desir, [facility] [address] [place], [place] [phone] Pharmacist Pharmacist 04/17/21 Rain Galaviz PA-C [address] [place] [address] [address] [facility] [phone] Physician Sericulture Teacher Dermatology 04/28/21 Tavia Wyatt MD [address] [place] [address] DR RAZO [facility] [place] [id number] Dermatology 07/14/21 Erica Farrell APRN CLAIMS CORRESPONDENCE CLERK [address] [place] 362995 Nurse Practitioner Cardiovascular Disease 09/09/21 Rich Barrett MD [address] [place] 351315 Physician Ophthalmology 01/21/22 Neil Kent MD [address] [place] [address] 909785 Dermatology 02/24/22 Diana Desir, [facility] 30[address] [place], [place] 588546 Assigned [place] Pharmacist 04/07/22 Livan Sharif MD [address] [place] 2[address]15 Cardiovascular Disease 05/14/22 Catherine Cm MD [address] [place] 347465 Cardiovascular Disease 07/21/22 Valery Veronica, PA-C [address] [place] [address] 752505 Physician Sericulture Teacher Dermatology 07/21/22 Brea Quinn APRN CLAIMS CORRESPONDENCE CLERK 500 [place] [address] Nurse Practitioner Dermatology 09/21/22 Brea Quinn APRN CLAIMS CORRESPONDENCE CLERK 6401 [place] [address] Assigned Surgical Provider 10/09/22 05/01/24 [place] [address] [place] [address] [address] Assigned Musculoskeletal Provider 10/09/22 05/01/24 Alfonso Renteria MD 5775 [facility] 200 [place], [place] 753476 Assigned Neuroscience Provider 04/02/23 09/29/24 Radha Lomeli APRN CLAIMS CORRESPONDENCE CLERK [address] [place] 7321100 [place] [address] Assigned Heart and Vascular Provider 05/28/23 Jelena David OD [address] [place] [address] Ophthalmology 06/15/23 Esha Grimm PA-C [address] [place] [phone] Assigned PCP 07/16/23 Valery Veronica PA-C [address] [place], [place] 303705 Physician Sericulture Teacher Dermatology 09/19/23 Rey Tay MD [address] [place] [address] 201655 MD Gastroenterology 09/20/23 Rocky Zepeda DO [address] [place] [address] Physician Gastroenterology 09/20/23 Philip Dumont MD [address] [place] [address] 592945 Physician Ophthalmology 09/22/23 Meredith Carrera PA-C [address] [place] [address] 389045 Assigned Gastroenterology Provider 11/01/23 Neil Kent MD [address] [place] [address] Dermatology 11/02/23 [place] [address] [address] [facility] [place] [address] Neurological Surgery 12/26/23 Audrey Waite PA-C [address] [place] [address] Physician Sericulture Teacher Dermatology 02/28/24 Valery Veronica PA-C 169468 [place], [place] [address] Physician Sericulture Teacher Dermatology 04/10/24 Herminia Hatch MD [address] [place] [address] Assigned Rheumatology Provider 07/02/24 Jelena David OD [address] [place] [address] [place] [address] Ophthalmology 08/30/24 [place] [address] [place] [address] Assigned Neuroscience Provider 09/30/24 Maru Man PA-C [address] [place] [address] Physician Sericulture Teacher Dermatology 10/03/24 Maru Man PA-C [address] [place] [address] Physician Sericulture Teacher Dermatology 10/22/24 Jelena David OD [address] [place] [address] [place] [address] Assigned Surgical Provider 10/31/24 documented as of this encounter
--- OUTSIDE RECORDS SUMMARY | 2024-11-21 05:13 | XMS_ITS | Encounter Summary ---
Author Organization [facility] Address [address] [place] [address] Care Team Providers Care Public Health Aide Name Role Phone Lita Oseguera Unavailable Unavailable Marija Edgar APRN SCALE SHOOTER Primary Care Provider + Marija Edgar APRN SCALE SHOOTER Unavailable [phone] Keisha Dotson MD Unavailable [phone] Diana Desir [facility] Unavailable Rain Galaviz PA-C Unavailable Tavia Wyatt MD Unavailable Erica Farrell APRN SCALE SHOOTER Unavailable Rich Barrett MD Unavailable [phone] Neil Kent MD Unavailable Diana Desir [facility] Unavailable [phone] Livan Sharif MD Unavailable Catherine Cm MD Unavailable + Valery Veronica PA-C Unavailable [phone] Brea Quinn PULVERIZING AND SIFTING OPERATOR SCALE SHOOTER Unavailable [phone] Brea Quinn PULVERIZING AND SIFTING OPERATOR SCALE SHOOTER Unavailable [phone] Jose Francisco Johnson MD Unavailable Catherine Cm MD Unavailable + Sydnie Martinez RN Unavailable Unavailable Alfonso Renteria MD Unavailable [phone] Esha Grimm PA-C Primary Care Provider Cheng Todd PA-C Unavailable Armani Radha Stovall ARLENE SCALE SHOOTER Unavailable Jelena David OD Unavailable Pao Joseph RN Unavailable Unavailable Esha Grimm PA-C Unavailable [phone] Valery Veronica PA-C Unavailable Rey Tay MD Unavailable Rocky Zepeda DO Unavailable Philip Dumont MD Unavailable [phone] Meredith Carrera PA-C Unavailable [phone] Neil Kent MD Unavailable Juan Pablo Emmanuel MD Unavailable Audrey Waite PA-C Unavailable Valery Veronica PA-C Unavailable Herminia Hatch MD Unavailable Jelena David OD Unavailable Juan Pablo Emmanuel MD Unavailable Maru Man PA-C Unavailable [phone] Maru Man PA-C Unavailable [phone] Jelena David OD Unavailable Encounter Details Date Type Department Care Team (Late st Contact Info) Description 12/23/2022 MyC Medical Advice [facility] [address] [place] [phone] Lauren Claudio PA-C [address] [place] [address] Social History Tobacco Use Types Packs/Day Years [...] How often do you attend presybeterian or confucianism serv ices? Never 09/22/2021 Do [...] Answer Date Recorded PHQ-2 Score 1 10/11/2022 [facility] - Occupational Stress [...] in a penitentiary (including now)? No 09/22/2021 [place] Depression Scale Answer Date Recorded [place] Depression Score 5 01/14/2021 Last EPDS Self Harm Result Not on file 01/14 Education Answer Date Recorded What is the highest level of school you have completed or the highest degree you have received? 12th grade 08/07/2020 Comments No Sex and Gender Information Value Date Recorded Sex Assigned at Female 03/02/2021 5:45 PM CDT Legal Sex Female 4:13 AM LUMP ROLLER Gender Identity Female 03/02/2021 5:45 PM CDT [...] 11/21/2024 7:00 AM CDT Office Visit [address] [phone] Maru Man PA-C [address] [place] [address] 12/20/2024 2:30 PM CDT Office Visit [facility] [id number] [place] [phone] Esha Grimm PA-C [address] [place] [address] 04/16/2025 11:00 AM CDT Virtual Visit [facility] [address] 4th [place] [address] Meredith Carrera PA-C [address] [place] [address] 124175 documented as of this encounter Visit Diagnoses [...] of this encounter Care Teams Public Health Aide Relationship Specialty Start Date End Date Marija Edgar APRN SCALE SHOOTER PCP - General Nurse Practitioner 04/30/20 04/14/23 Esha Grimm PA-C [address] [place] [address] PCP - General Family Medicine 05/04/23 Lita Oseguera Personal Advocate & Liaison (PAL) 02/28/20 03/27/23 Marija Edgar APRN SCALE SHOOTER Assigned PCP 06/08/20 04/29/23 Keisha Dotson MD 909 [place] [address] Assigned Neuroscience Provider 06/04/20 04/01/23 Diana Desir [facility] 3033 [place], [place] 214506 Pharmacist Pharmacist 04/17/21 Rain Galaviz PA-C [address] [place] [address] [address] [place] [address] Physician Assembly Hand Dermatology 04/28/21 Tavia Wyatt MD [address] [place] [address] [address] [place], [place] [address] Dermatology 07/14/21 Erica Farrell APRN SCALE SHOOTER [address] [place], [place] [address] Nurse Practitioner Cardiovascular Disease 09/09/21 Rich Barrett MD [address] [place], [place] 62[address]35 Physician Ophthalmology 01/21/22 Neil Kent MD [address] [place] [address] 797525 Dermatology 02/24/22 [facility] [address] [place] [address] Assigned [place] Pharmacist 04/07/22 Livan Sharif MD [address] [place], [place] [address] Cardiovascular Disease 05/14/22 Catherine Cm MD [address] [place], [place] [address] Cardiovascular Disease 07/21/22 Valery Veronica, PA-C [address] [place] [address] Physician Assembly Hand Dermatology 07/21/22 Brea Quinn APRN SCALE SHOOTER [address] [place] [address] Nurse Practitioner Dermatology 09/21/22 Brea Quinn APRN SCALE SHOOTER 6401 [place] [address] Assigned Surgical Provider 10/09/22 05/01/24 [place] [address] [address] Assigned Musculoskeletal Provider 10/09/22 05/01/24 Catherine Cm MD [address] [facility] [address] [place] [address] Assigned Heart and Vascular Provider 11/13/22 05/27/23 Sydnie Martinez RN Personal Advocate & Liaison (PAL) Family Medicine 03/28/23 07/31/23 Alfonso Renteria MD 5775 [facility] 200 [place] [address] Assigned Neuroscience Provider 04/02/23 09/29/24 Cheng Todd PA-C [address] [place] [address] [phone] Assigned PCP 04/30/23 07/15/23 Radha Lomeli APRN SCALE SHOOTER [address] [place] [phone] [place] 640815 Assigned Heart and Vascular Provider 05/28/23 Jelena David OD [address] [place] [address] MD Ophthalmology 06/15/23 Pao Joseph, RN Personal Advocate & Liaison (PAL) Nurse 08/01/23 11/07/23 Esha Grimm PA-C [address] [place] [address] Assigned PCP 07/16/23 Valery Veronica PA-C [address] [place] [address] 099765 Physician Assembly Hand Dermatology 09/19/23 Rey Tay MD [address] [place] [address] Gastroenterology 09/20/23 Rocky Zepeda DO [address] [place] [address] 373495 Physician Gastroenterology 09/20/23 Philip Dumont MD [address] [place] [address] 182835 Physician Ophthalmology 09/22/23 Meredith Carrera PA-C [address] [place] [address] 613185 Assigned Gastroenterology Provider 11/01/23 Neil Kent MD [address] 563640 Dermatology 11/02/23 [place] [address] [place] [address] Neurological Surgery 12/26/23 Audrey Waite PA-C [address] [place] [address] Physician Assembly Hand Dermatology 02/28/24 Valery Veronica PA-C 397686 [place] [address] Physician Assembly Hand Dermatology 04/10/24 Herminia Hatch MD [address] [place] [address] [phone] Assigned Rheumatology Provider 07/02/24 [place] [address] [place] [address] [place] [address] Ophthalmology 08/30/24 [place] [address] RAZO [facility] [place] [address] Assigned Neuroscience Provider 09/30/24 Maru Man PA-C [address] [place] [address] Physician Assembly Hand Dermatology 10/03/24 Maru Man PA-C [address] [place] [address] Physician Assembly Hand Dermatology 10/22/24 Jelena David OD [address] [facility] [address] [place] [address] Assigned Surgical Provider 10/31/24 documented as of this encounter
--- OUTSIDE RECORDS SUMMARY | 2024-11-21 05:13 | XMS_ITS | Encounter Summary ---
Author Organization [facility] Address [address] [place] [address] Care Team Providers Care Web Press Jogger Name Role Phone Diana Desir [facility] Unavailable Rain Galaviz PA-C Unavailable [phone] Tavia Wyatt MD Unavailable Erica Farrell APRN PRODUCTION SOUND MIXER Unavailable Rich Barrett MD Unavailable [phone] Neil Kent MD Unavailable Diana Desir [facility] Unavailable Livan Sharif MD Unavailable Catherine Cm MD Unavailable + Valery Veronica PA-C Unavailable Brea Quinn ETIQUETTE TEACHER PRODUCTION SOUND MIXER Unavailable Brea Quinn ETIQUETTE TEACHER PRODUCTION SOUND MIXER Unavailable Jose Francisco Johnson MD Unavailable Alfonso Renteria MD Unavailable [phone] Esha Grimm PA-C Primary Care Provider [phone] Radha Lomeli APRN PRODUCTION SOUND MIXER Unavailable FrankieJelenae OD Unavailable Pao Joseph RN Unavailable Unavailable AlfaJesusEsha M PA-C Unavailable [phone] Valery Veronica PA-C Unavailable Rey Tay MD Unavailable Rocky Zepeda DO Unavailable Philip Dumont MD Unavailable Meredith Carrera-C Unavailable [phone] Neil Kent MD Unavailable Juan Pablo Emmanuel MD Unavailable Audrey Waite PA-C Unavailable Valery Veronica PA-C Unavailable [phone] Herminia Hatch MD Unavailable Jelena David OD Unavailable Juan Pablo Emmanuel MD Unavailable [phone] Maru ManC Unavailable Maru ManC Unavailable Reason for Visit * Reason Onset Date Comments Medication Question 10/21/2023 omeprazole Encounter Details Date Type Department Care Team (Late st Contact Info) Description 10/21/2023 Telephone [facility] [address] [place] [address] Meredith Carrera PA-C [address] [place] [address] Medication Question (omeprazole ) Social History [...] attend [facility] or gnosticism services? 1 to 4 [...] Answer Date Recorded PHQ-2 Score 1 10/24/[address] [facility] - Occupational Stress Questionnaire Answer [...] exercise at this level? 20 min 05/07/2024 [place] Depression Scale Answer Date Recorded [place] Depression Score 5 01/14/2021 Last EPDS Self [...] PM CDT Legal Sex Female 4:13 AM BRACELET MAKER NOVELTY Gender Identity Female 03/02/2021 5:45 PM CDT [...] Rajput - 10/21/2023 4:42 PM CDT M [facility] Phone Message May a detailed message be left on voicemail: yes Reason for Call: Other: Pt called in asking to speak to a nurse about omeprazole that she is on. Ptdeclined to schedule follow up until she speaks to someone from care team about the medication. Thank you. Action Taken: Message routed to: [facility][[id number]] Travel Screening: Not Applicable documented in this encounter Plan of Treatment Upcoming Encounters Date Type Department Care Team (Late st Contact Info) Description 11/21/2024 7:00 AM CDT Office Visit [facility] [address] [phone] Maru Man PA-C [address] [address] 12/20/2024 2:30 PM CDT Office Visit [facility] [address] [place] [phone] Esha Grimm PA-C [address] [place] [phone] 04/16/2025 11:00 AM CDT Virtual Visit [facility] [address] 4th [place] [phone] Meredith Carrera PA-C 909 [place] [address] documented as of this encounter Visit Diagnoses Not on filedocumented in this encounter Additional Health Concerns Infection Onset Date Last Indicated Resolved Time Rule Out COVID-19 12/26/2023 12/26/2023 12/26/2023 9:50 AM CDT Rule Out COVID-19 04/09/2024 04/09/2024 04/10/2024 6:48 PM CDT Rule Out COVID-19 10/04/2024 10/04/2024 10/05/2024 9:42 AM CDT Assessment Noted Time PHQ-9 Depression Total Score: 4 06/20/20 23 8:40 AM BRACELET MAKER NOVELTY documented as of this encounter Care Teams Web Press Jogger Relationship Specialty Start Date End Date Esha Grimm PA-C [address] [place] [phone] PCP - General Family Medicine 05/04/23 Diana Desir, [facility] [address] [facility] [place], [place] [phone] Pharmacist Pharmacist 04/17/21 Rain Galaviz PA-C [address] [place] [address] [address] [place] [facility] [place] [address] Physician Tool Machine Set Up Operator Dermatology 04/28/21 Tavia Wyatt MD [address] [place] [address] [facility] [place] [id number] Dermatology 07/14/21 Erica Farrell APRN PRODUCTION SOUND MIXER [address] [facility] [address] [place] 4[address] Nurse Practitioner Cardiovascular Disease 09/09/21 Rich Barrett MD [address] [place], [place] 161705 Physician Ophthalmology 01/21/22 Neil Kent MD 500 [place], [place] 835335 Dermatology 02/24/22 Diana Desir, [facility] 3033 [place], [place] 729776 Assigned [place] Pharmacist 04/07/22 Livan Sharif MD [address] [place] [address] Cardiovascular Disease 05/14/22 Catherine Cm MD [address] [facility] [address] [address] Cardiovascular Disease 07/21/22 Valery Veronica, PA-C [address] [place], [place] 903605 Physician Tool Machine Set Up Operator Dermatology 07/21/22 Brea Quinn APRN PRODUCTION SOUND MIXER 500 [place], [place] 331225 Nurse Practitioner Dermatology 09/21/22 Brea Quinn APRN PRODUCTION SOUND MIXER 6401 [facility] [employer], [place] 102722 Assigned Surgical Provider 10/09/22 05/01/24 [place] [address] [place] [address] Assigned Musculoskeletal Provider 10/09/22 05/01/24 Alfonso Renteria MD 5775 [facility] 200 [place], [place] 753376 Assigned Neuroscience Provider 04/02/23 09/29/24 Radha Lomeli APRN PRODUCTION SOUND MIXER [address] [facility] [address] [place], [place] 403065 Assigned Heart and Vascular Provider 05/28/23 Jelena David OD [address] [facility] [place] [address] Ophthalmology 06/15/23 Pao Joseph, VJ Personal Advocate & Liaison (PAL) Nurse 08/01/23 11/07/23 Esha Grimm PA-C [address] [place] [address]197383 Assigned PCP 07/16/23 Valery Veronica PA-C [address] [place] [address] 283235 Physician Tool Machine Set Up Operator Dermatology 09/19/23 Rey Tay MD [address] [place] [address] 090795 Gastroenterology 09/20/23 Rocky Zepeda DO [address] [place] [address] 66801455 Physician Gastroenterology 09/20/23 Philip Dumont MD 516 [place] [address] Physician Ophthalmology 09/22/23 Meredith Carrera PA-C [address] [place] [address] Assigned Gastroenterology Provider 11/01/23 Neil Kent MD [address] 840700 MD Dermatology 11/02/23 [place] [address] [place] [address] Neurological Surgery 12/26/23 Audrey Waite PA-C 500 [place], [place] 273375 Physician Tool Machine Set Up Operator Dermatology 02/28/24 Valery Veronica PA-C [address] [place] [address] Physician Tool Machine Set Up Operator Dermatology 04/10/24 Herminia Hatch MD 1875 [place], [place] 39528125 Assigned Rheumatology Provider 07/02/24 Jelena David OD [address] [facility] [place] [address] Ophthalmology 08/30/24 [place] [address] [place] [address] Assigned Neuroscience Provider 09/30/24 Maru Man PA-C [address] [place] [address] Physician Tool Machine Set Up Operator Dermatology 10/03/24 Maru Man PA-C [address] [place] [address] Physician Tool Machine Set Up Operator Dermatology 10/22/24 documented as of this encounter
--- OUTSIDE RECORDS SUMMARY | 2024-11-21 05:13 | XMS_ITS | Encounter Summary ---
Author Organization [facility] Address [address] [place] [address] Care Team Providers Care Fire Observer Name Role Phone Diana Desir [facility] Unavailable [phone] Rain Galaviz PA-C Unavailable Tavia Wyatt MD Unavailable Erica Farrell APRN COLOR CARD MAKER Unavailable Rich Barrett MD Unavailable [phone] Neil Kent MD Unavailable Diana Desir [facility] Unavailable Livan Sharif MD Unavailable Catherine Cm MD Unavailable + Valery Veronica PA-C Unavailable Brea Quinn BIOMASS PRODUCTION MANAGER COLOR CARD MAKER Unavailable Brea Quinn BIOMASS PRODUCTION MANAGER COLOR CARD MAKER Unavailable [phone] Jose Francisco Johnson MD Unavailable Alfonso Renteria MD Unavailable [phone] Esha Grimm PA-C Primary Care Provider Radha Lomeli APRN COLOR CARD MAKER Unavailable Jelena David OD Unavailable [phone] Esha Grimm PA-C Unavailable [phone] JeremíasValery damon PA-C Unavailable Rey Tay MD Unavailable Duane Rockyanne [place] Unavailable Philip Dumont MD Unavailable [phone] Meredith Carrera PA-C Unavailable [phone] Neil Kent MD Unavailable Juan Pablo Emmanuel MD Unavailable Audrey Waite PA-C Unavailable [phone] JeremíasValery damon PA-C Unavailable Herminia Hatch MD Unavailable Jelena David OD Unavailable [phone] Juan Pablo Emmanuel MD Unavailable Maru Man PA-C Unavailable Maru Man PA-C Unavailable Jelena David OD Unavailable Encounter Details Date Type Department Care Team (Late st Contact Info) Description 11/16/2023 [facility] Medical Advice [address] [address] Asiya Reddy, RN Social History [...] Answer Date Recorded PHQ-2 Score 0 10/25/2023 [facility] - Occupational Stress Questionnaire Answer Date [...] exercise at this level? 30 min 03/10/2023 [place] Depression Scale Answer Date Recorded [place] [...] PM CDT Legal Sex Female 4:13 AM GIN CLERK Gender Identity Female 03/02/2021 5:45 PM CDT Sexual Orientation Straight 02/28/2020 12 :51 AM CDT documented as of this encounter Plan of Treatment Upcoming Encounters Date Type Department Care Team (Late st Contact Info) Description 11/21/2024 7:00 AM CDT Office Visit [facility] [address] [address] Maru Man PA-C [address] [address] 12/20/2024 2:30 PM CDT Office Visit [address] [place] [phone] Esha Grimm PA-C [address] [place] [address] 04/16/2025 11:00 AM CDT Virtual Visit [facility] [address] 4th [place] [phone] Meredith Carrera PA-C [address] [place] [address] documented as of this encounter Visit Diagnoses [...] Total Score: 4 06/20/20 23 8:40 AM GIN CLERK documented as of this encounter Care Teams Fire Observer Relationship Specialty Start Date End Date Esha Grimm PA-C [address] [place] [address] PCP - General Family Medicine 05/04/23 Diana Desir, [facility] [address] [place], [place] [phone] Pharmacist Pharmacist 04/17/21 Rain Galaviz PA-C [address] [place] [address] [facility] [place] [id number] Physician Account Services Associate Dermatology 04/28/21 Tavia Wyatt MD [address] [place] [address] DR RA[address] [facility] [place] [id number] Dermatology 07/14/21 Erica Farrell APRN COLOR CARD MAKER [address] [place] 702955 Nurse Practitioner Cardiovascular Disease 09/09/21 Rich Barrett MD [address] [place] 295855 Physician Ophthalmology 01/21/22 Neil Kent MD [address] [place] [address] 983015 Dermatology 02/24/[address] [facility] [address] [place] [address] 088026 Assigned [place] Pharmacist 04/07/22 Livan Sharif MD [address] [facility] [place] 762525 Cardiovascular Disease 05/14/22 Catherine Cm MD [address] [facility] [place] 7[address]65 Cardiovascular Disease 07/21/22 Valery Veronica, PA-C [address] [place] [address] 379145 Physician Account Services Associate Dermatology 07/21/22 Brea Quinn APRN COLOR CARD MAKER 500 [place] [address] Nurse Practitioner Dermatology 09/21/22 Brea Quinn APRN COLOR CARD MAKER 6401 [place] [address] Assigned Surgical Provider 10/09/22 05/01/24 [place] [address] [place] [address] [address] Assigned Musculoskeletal Provider 10/09/22 05/01/24 Alfonso Renteria MD [address] 357436 Assigned Neuroscience Provider 04/02/23 09/29/24 Radha Lomeli APRN COLOR CARD MAKER [address] [address] Assigned Heart and Vascular Provider 05/28/23 Jelena David OD [address] [place] [address] Ophthalmology 06/15/23 Esha Grimm PA-C [address] [place] [phone] Assigned PCP 07/16/23 Valery Veronica PA-C 909 [place], [place] 200005 Physician Account Services Associate Dermatology 09/19/23 Rey Tay MD [address] [place] [address] 799065 MD Gastroenterology 09/20/23 Rocky Zepeda DO [address] [place] [address] Physician Gastroenterology 09/20/23 Philip Dumont MD [address] [place] [address] 855905 Physician Ophthalmology 09/22/23 Meredith Carrera PA-C [address] [place] [address] 170425 Assigned Gastroenterology Provider 11/01/23 Neil Kent MD [address] [place] [address] Dermatology 11/02/23 [place] [address] [place] [address] [address] Neurological Surgery 12/26/23 Audrey Waite PA-C [address] [place] [address] Physician Account Services Associate Dermatology 02/28/24 Valery Veronica PA-C 298790 99[place], [place] [address] Physician Account Services Associate Dermatology 04/10/24 Herminia Hatch MD [address] [place] [address] Assigned Rheumatology Provider 07/02/24 Jelena David OD [address] [place] [address] [place] [address] Ophthalmology 08/30/24 [place] [address] [place] [address] Assigned Neuroscience Provider 09/30/24 Maru Man PA-C [address] [place] [address] Physician Account Services Associate Dermatology 10/03/24 Maru Man PA-C [address] [place] [address] Physician Account Services Associate Dermatology 10/22/24 Jelena David OD [address] [place] [address] [place] [address] Assigned Surgical Provider 10/31/24 documented as of this encounter
--- OUTSIDE RECORDS SUMMARY | 2024-11-21 05:13 | XMS_ITS | Encounter Summary ---
Author Organization [place] Address [address] [place] [address] Care Team Providers Care Programs Manager Name Role Phone Diana Desir [facility] Unavailable Rain Galaviz PA-C Unavailable Tavia Wyatt MD Unavailable Erica Farrell APRN ATTORNEY Unavailable Rich Barrett MD Unavailable [phone] Neil Kent MD Unavailable Diana Desir [facility] Unavailable Livan Sharif MD Unavailable Catherine Cm MD Unavailable + Valery Veronica PA-C Unavailable Brea Quinn WOODWORKING SHOP LABORER ATTORNEY Unavailable Brea Quinn WOODWORKING SHOP LABORER ATTORNEY Unavailable Jose Francisco Johnson MD Unavailable Alfonso Renteria MD Unavailable [phone] Esha Grimm PA-C Primary Care Provider [phone] Lomeli, Radha E WOODWORKING SHOP LABORER ATTORNEY Unavailable Jelena David OD Unavailable [phone] Esha Grimm PA-C Unavailable [phone] JeremíasValery damon PA-C Unavailable Rey Tay MD Unavailable Duane Rocky DO Unavailable Philip Dumont MD Unavailable Meredith Carrera PA-C Unavailable [phone] Neil Kent MD Unavailable Juan Pablo Emmanuel MD Unavailable Audrey Waite PA-C Unavailable JeremíasValery damon PA-C Unavailable Herminia Hatch MD Unavailable Jelena David OD Unavailable [phone] Juan Pablo Emmanuel MD Unavailable [phone] Maru Man PA-C Unavailable Maru Man PA-C Unavailable Reason for Visit * Reason Onset Date Comments Appointment 12/02/2023 Clarification Encounter Details Date Type Department Care Team (Late st Contact Info) Description 12/02/2023 Telephone [facility] [address] [facility] [address] [place] [phone] Armani Radah E, WOODWORKING SHOP LABORER ATTORNEY [address] [facility] [address] [place] [phone] Appointment (Clarification) Social History Tobacco Use Types [...] 1 10/24/2024 [facility] of Occupat ional [...] exercise at this level? 20 min 05/07/2024 Carolina Depression Scale Answer Date Recorded Carolina Depression Score 5 01/14/2021 Last EPDS Self [...] PM CDT Legal Sex Female 4:13 AM THEATRE MANAGER Gender Identity Female 03/02/2021 5:45 PM [...] Questions pertaining to OV's scheduled. Carley ZABALA [facility] * Telephone Encounter - Janett Fragoso - 12/02/2023 8:56 AM CDT [facility] Call Center [...] Description 11/21/2024 7:00 AM CDT Office Visit [address] [phone] Maru Man PA-C [address] [address] 12/20/2024 2:30 PM CDT Office Visit [facility] [id number] [place] [phone] Esha Grimm PA-C [address] [place] [phone] 04/16/2025 11:00 AM CDT Virtual Visit [facility] [place] [address] [facility] [address] 4th [place] [phone] Meredith Carrera PA-C 9 [place] [address] documented as of this encounter Visit Diagnoses Not on filedocumented in this encounter Additional Health Concerns Infection Onset Date Last Indicated Resolved Time Rule Out COVID-19 12/26/2023 12/26/2023 12/26/2023 9:50 AM CDT Rule Out COVID-19 04/09/2024 04/09/2024 04/10/2024 6:48 PM CDT Rule Out COVID-19 10/04/2024 10/04/2024 10/05/2024 9:42 AM CDT Assessment Noted Time PHQ-9 Depression Total Score: 4 06/20/20 8:40 AM THEATRE MANAGER documented as of this encounter Care Teams Programs Manager Relationship Specialty Start Date End Date Esha Grimm PA-C [address] [place] [phone] PCP - General Family Medicine 05/04/23 Diana Desir, [facility] [address] [place] [address] Pharmacist Pharmacist 04/17/21 Rain Galaviz PA-C [address] [place] [address] [address] [place] [address] Physician Director Of Neurology Dermatology 04/28/21 Tavia Wyatt MD [address] [place] [address] [place] [address] Dermatology 07/14/21 Erica Farrell APRN ATTORNEY [address] [place] [phone] Nurse Practitioner Cardiovascular Disease 09/09/21 Rich Barrett MD [address] [place] 733025 Physician Ophthalmology 01/21/22 Neil Kent MD 500 [place] [address] Dermatology 02/24/22 Diana Desir, [facility] 3033 [place], [place] 824626 Assigned [facility] Pharmacist 04/07/22 Livan Sharif MD [address] [place] 144785 Cardiovascular Disease 05/14/22 Catherine Cm MD [address] [place] 445795 Cardiovascular Disease 07/21/22 Valery Veronica PAUcheC 909 [place], [place] 624125 Physician Director Of Neurology Dermatology 07/21/22 Brea Quinn APRN ATTORNEY 500 [place], [place] 661495 Nurse Practitioner Dermatology 09/21/22 Brea Quinn APRN ATTORNEY 64[address] [facility] [place] [address] Assigned Surgical Provider 10/09/22 05/01/24 [place] [address] [address] [place] [address] Assigned Musculoskeletal Provider 10/09/22 05/01/24 Alfonso Renteria MD [address] [facility] 200 [place], [place] 833676 Assigned Neuroscience Provider 04/02/23 09/29/24 Radha Lomeli APRN ATTORNEY [address] [facility] [address] [place] [address] Assigned Heart and Vascular Provider 05/28/23 Jelena David OD [address] [place] [address] Ophthalmology 06/15/23 Esha Grimm PA-C [address] [place] [phone] Assigned PCP 07/16/23 Valery Veronica PA-C 909 [place], [place] 103845 Physician Director Of Neurology Dermatology 09/19/23 Rey Tay MD 909 [place], [place] 056765 Gastroenterology 09/20/23 Rocky Zepeda DO [address] [place] [address] Physician Gastroenterology 09/20/23 Philip Dumont MD [address] [place] [address] Physician Ophthalmology 09/22/23 Meredith Carrera PA-C [address] [place] [address] Assigned Gastroenterology Provider 11/01/23 Neil Kent MD [address] [place] [address] MD Dermatology 11/02/23 [place] [address] [place] [address] [address] Neurological Surgery 12/26/23 Audrey Waite PA-C [address] [place] [address] Physician Director Of Neurology Dermatology 02/28/24 Valery Veronica PA-C [address] [place] [address] Physician Director Of Neurology Dermatology 04/10/24 Herminia Hatch MD [address] [place] [address] 85953125 Assigned Rheumatology Provider 07/02/24 [place] [address] [place] [address] [address] [place] [id number] Ophthalmology 08/30/24 [place] [address] [address] Assigned Neuroscience Provider 09/30/24 Maru Man PA-C [address] [place] [address] 259350 Physician Director Of Neurology Dermatology 10/03/24 Maru Man PA-C [address] [place] [address] Physician Director Of Neurology Dermatology 10/22/24 documented as of this encounter
--- OUTSIDE RECORDS SUMMARY | 2024-11-21 05:13 | XMS_ITS | Encounter Summary ---
Author Organization [place] Address [address] [place] [address] Care Team Providers Care Postdoctoral Research Fellow Name Role Phone Diana Desir [facility] Unavailable Rain Galaviz PA-C Unavailable Tavia Wyatt MD Unavailable Erica Farrell APRN WOOL CLASSER Unavailable Rich Barrett MD Unavailable [phone] Neil Kent MD Unavailable Diana Desir [facility] Unavailable Livan Sharif MD Unavailable Catherine Cm MD Unavailable + Valery Veronica PA-C Unavailable Brea Quinn CAB STATION ATTENDANT WOOL CLASSER Unavailable Brea Qiunn CAB STATION ATTENDANT WOOL CLASSER Unavailable Jose Francisco Johnson MD Unavailable Alfonso Renteria MD Unavailable [phone] Esha Grimm PA-C Primary Care Provider [phone] Radha Lomeli APRN WOOL CLASSER Unavailable Jelena David OD Unavailable Pao Joseph RN Unavailable Unavailable AlfaJesusEsha M PA-C Unavailable [phone] Valery Veronica PA-C Unavailable [phone] Rey Tay MD Unavailable Rocky Zepeda DO Unavailable Philip Dumont MD Unavailable [phone] Meredith Carrera PA-C Unavailable [phone] Neil Kent MD Unavailable Juan Pablo Emmanuel MD Unavailable Audrey Waite PA-C Unavailable [phone] JeremíasValery damon PA-C Unavailable Herminia Hatch MD Unavailable Jelena David OD Unavailable Juan Pablo Emmanuel MD Unavailable [phone] Maru Man PA-C Unavailable Maru Man PA-C Unavailable [phone] Jelena David OD Unavailable Encounter Details Date Type Department Care Team (Late st Contact Info) Description 10/25/2023 MyC Medical Advice [facility] [address] 4th [place] [address] [place] Social History Tobacco [...] Answer Date Recorded PHQ-2 Score 0 10/25/2023 [facility] Occupat ional Health - Occupational Stress [...] exercise at this level? 30 min 03/10/2023 Bomoseen Depression Scale Answer Date Recorded Bomoseen Depression Score 5 01/14/2021 Last EPDS Self [...] CDT Legal Sex Female 4:13 AM MANAGER UTILIZATION REVIEW Gender Identity Female 03/02/2021 5:45 PM CDT Sexual Orientation Straight 02/28/2020 12 :51 AM CDT documented as of this encounter Plan of Treatment Upcoming Encounters Date Type Department Care Team (Late st Contact Info) Description 11/21/2024 7:00 AM CDT Office Visit [facility] [address] [phone] Maru Man PA-C [address] [address] 12/20/2024 2:30 PM CDT Office Visit [facility] [address] [place] [phone] Esha Grimm PA-C [address] [place] [phone] 04/16/2025 11:00 AM CDT Virtual Visit [facility] [address] 4th [place] [phone] Meredith Carrera PA-C [address] [place] [address] 298815 documented as of this encounter Visit Diagnoses [...] Score: 4 06/20/20 23 8:40 AM MANAGER UTILIZATION REVIEW documented as of this encounter Care Teams Postdoctoral Research Fellow Relationship Specialty Start Date End Date Esha Grimm PA-C [address] [place] [phone] PCP - General Family Medicine 05/04/23 Diana Desir, [facility] [address] [facility] [place] [address] Pharmacist Pharmacist 04/17/21 Rain Galaviz PA-C [address] [place] [address] [place] [address] Physician Benzene Washer Operator Dermatology 04/28/21 Tavia Wyatt MD [address] [place] [address] [address] [place] [address] Dermatology 07/14/21 Erica Farrell APRN WOOL CLASSER [address] [place] [address] Nurse Practitioner Cardiovascular Disease 09/09/21 Rich Barrett MD [address] [place] 473175 Physician Ophthalmology 01/21/22 Neil Kent MD [address] [place] [address] 873785 Dermatology 02/24/22 [facility] [address] [place] [address] 838406 Assigned [facility] Pharmacist 04/07/22 Livan Sharif MD [address] [place] [address] Cardiovascular Disease 05/14/22 Catherine Cm MD [address] [place] 493025 Cardiovascular Disease 07/21/22 Valery Veronica, PA-C [address] [place] [address] 316765 Physician Benzene Washer Operator Dermatology 07/21/22 Brea Quinn APRN WOOL CLASSER 500 [place], [place] 463015 Nurse Practitioner Dermatology 09/21/22 Brea Quinn APRN WOOL CLASSER 6401 [place] [address] Assigned Surgical Provider 10/09/22 05/01/24 [place] [address] [place] [address] [address] Assigned Musculoskeletal Provider 10/09/22 05/01/24 Alfonso Renteria MD 5775 [facility] 200 [place], [place] 759216 Assigned Neuroscience Provider 04/02/23 09/29/24 Radha Lomeli APRN WOOL CLASSER [address] [place] 0349800 [place] [address] Assigned Heart and Vascular Provider 05/28/23 Jelena David OD [address] [facility] [address] Ophthalmology 06/15/23 Pao Joseph, RN Personal Advocate & Liaison (PAL) Nurse 08/01/23 11/07/23 Esha Grimm PA-C [address] [place] [address]045783 Assigned PCP 07/16/23 Valery Veronica PA-C [address] [place] [address] Physician Benzene Washer Operator Dermatology 09/19/23 Rey Tay MD [address] [place] [address] MD Gastroenterology 09/20/23 Rocky Zepeda DO [address] [place] [address] Physician Gastroenterology 09/20/23 Philip Dumont MD [address] [place] [address] Physician Ophthalmology 09/22/23 Meredith Carrera PA-C [address] [place] [address] Assigned Gastroenterology Provider 11/01/23 Neil Kent MD [address] [address] Dermatology 11/02/23 [place] [address] [place] [address] Neurological Surgery 12/26/23 Audrey Waite PA-C [address] [place] [address] 193325 Physician Benzene Washer Operator Dermatology 02/28/24 Valery Veronica PA-C [address]17 [address] [place] [address] Physician Benzene Washer Operator Dermatology 04/10/24 Herminia Hatch MD [facility]5 [place], [place] 07513125 Assigned Rheumatology Provider 07/02/24 Jelena David OD [address] [facility] [place] [address] Ophthalmology 08/30/24 [place] [address] [place] [address] Assigned Neuroscience Provider 09/30/24 Maru Man PA-C [address] [place] [address] Physician Benzene Washer Operator Dermatology 10/03/24 Maru Man PA-C [address] [place] [address] Physician Benzene Washer Operator Dermatology 10/22/24 Jelena David OD [address] [facility] [place] [address] Assigned Surgical Provider 10/31/24 documented as of this encounter
--- OUTSIDE RECORDS SUMMARY | 2024-11-21 05:13 | XMS_ITS | Encounter Summary ---
Author Organization [place] Address [address] [place] [address] Care Team Providers Care Director Of Materials Name Role Phone Diana Desir [facility] Unavailable Rain Galaviz PA-C Unavailable [phone] Tavia Wyatt MD Unavailable Erica Farrell APRN DRUM OPERATOR Unavailable Rich Barrett MD Unavailable [phone] Neil Kent MD Unavailable Diana Desir [facility] Unavailable Livan Sharif MD Unavailable Catherine Cm MD Unavailable + Valery Veronica PA-C Unavailable Brea Quinn BALLET TEACHER DRUM OPERATOR Unavailable Brea Quinn BALLET TEACHER DRUM OPERATOR Unavailable Jose Francisco Johnson MD Unavailable Alfonso Renteria MD Unavailable [phone] Esha Grimm PA-C Primary Care Provider [phone] Radha Lomeli APRN DRUM OPERATOR Unavailable Jelena David OD Unavailable [phone] Pao Joseph RN Unavailable Unavailable AlfaJeussEsha M PA-C Unavailable [phone] Valery Veronica PA-C Unavailable Rey Tay MD Unavailable Rocky Zepeda DO Unavailable Philip Dumont MD Unavailable Meredith Carrera PA-C Unavailable Neil Kent MD Unavailable Juan Pablo Emmanuel MD Unavailable Audrey Waite PA-C Unavailable JeremíasValery damon PA-C Unavailable Herminia Hatch MD Unavailable Jelena David OD Unavailable [phone] Jua nPablo Emmanuel MD Unavailable Maru Man PA-C Unavailable Maru Man PA-C Unavailable Jelena David OD Unavailable Encounter Details Date Type Department Care Team (Late st Contact Info) Description 10/25/2023 [facility] [address]th [place] [address] N[place], RD 909 [place] [address] Social History Tobacco Use Types [...] you attend [facility] or [facility]ast[facility] services? 1 to 4 times [...] exercise at this level? 30 min 03/10/2023 Durham Depression Scale Answer Date Recorded Durham Depression Score 5 01/14/2021 Last EPDS Self [...] PM CDT Legal Sex Female 4:13 AM FLAVOR TANK TENDER Gender Identity Female 03/02/2021 5:45 PM CDT Sexual Orientation Straight 02/28/2020 12 :51 AM CDT documented as of this encounter Plan of Treatment Upcoming Encounters Date Type Department Care Team ([facility] st Contact Info) Description 11/21/2024 7:00 AM CDT Office Visit [facility] [address] [phone] Maru Man PA-C [address] [address] 12/20/2024 2:30 PM CDT Office Visit [facility] [address] [place] [address] Esha Grimm PA-C [address] [place] [address] 04/16/2025 11:00 AM CDT Virtual Visit [facility] [address] 4th [place] [address] Meredith Carrera PA-C [address] [place] [address] documented as of this encounter Visit Diagnoses [...] Total Score: 4 06/20/20 23 8:40 AM FLAVOR TANK TENDER documented as of this encounter Care Teams Director Of Materials Relationship Specialty Start Date End Date Esha Grimm PA-C [id number] [place] [phone] PCP - General Family Medicine 05/04/23 Diana Desir [facility] [address] [place] [address] Pharmacist Pharmacist 04/17/21 Rain Galaviz PA-C [address] [place] [address] [address] [place] [address] Physician Manager Business Banking Dermatology 04/28/21 Tavia Wyatt MD [address] [place] [address] [place] [address] Dermatology 07/14/21 Erica Farrell APRN DRUM OPERATOR [address] [place] 010855 Nurse Practitioner Cardiovascular Disease 09/09/21 Rich Barrett MD [address] [place] 286365 Physician Ophthalmology 01/21/22 Neil Kent MD 500 [place], [place] 471055 Dermatology 02/24/22 Diana Desir, [facility] 3033 [place], [place] 207106 Assigned MTM Pharmacist 04/07/22 Livan Sharif MD [address] [place] 0[address]15 Cardiovascular Disease 05/14/22 Catherine Cm MD [address] [place] [address] Cardiovascular Disease 07/21/22 Valery Veronica PA-C 909 [place] [address] Physician Manager Business Banking Dermatology 07/21/22 Brea Quinn APRN DRUM OPERATOR 500 [place] [address] Nurse Practitioner Dermatology 09/21/22 Brea Quinn APRN DRUM OPERATOR 6401 [place], [place] 923202 Assigned Surgical Provider 10/09/22 05/01/24 [place] [address] [facility] 300 [place], [place] 619677 Assigned Musculoskeletal Provider 10/09/22 05/01/24 Alfonso Renteria MD 5775 [facility] 200 [place] [address] Assigned Neuroscience Provider 04/02/23 09/29/24 Radha Lomeli APRN DRUM OPERATOR [address] [facility] [address] [place] 721615 Assigned Heart and Vascular Provider 05/28/23 Jelena David OD [address] [facility] [address] [place] [phone] Ophthalmology 06/15/23 Pao Joseph, VJ Personal Advocate & Liaison (PAL) Nurse 08/01/23 11/07/23 Esha Grimm PA-C [address] [place] [phone] Assigned PCP 07/16/23 Valery Veronica PA-C [address] [place] [address] Physician Manager Business Banking Dermatology 09/19/23 Rey Tay MD [address] [place] [address] 938445 MD Gastroenterology 09/20/23 Rocky Zepeda DO [address] [place] [address] 230205 Physician Gastroenterology 09/20/23 Philip Dumont MD [address] [place] [address] 630965 Physician Ophthalmology 09/22/23 Meredith Carrera PA-C [address] [place] [address] 311085 Assigned Gastroenterology Provider 11/01/23 Neil Kent MD [address] [address] Dermatology 11/02/23 [place] [address] [facility] [place], [place] 888077 Neurological Surgery 12/26/23 Audrey Waite PA-C [address] [place] [address] Physician Manager Business Banking Dermatology 02/28/24 Valery Veronica PA-C [address] [address] Physician Manager Business Banking Dermatology 04/10/24 Herminia Hatch MD [address] [place] [address] Assigned Rheumatology Provider 07/02/24 Jelena David OD [address] [place] [address] [place] [address] Ophthalmology 08/30/24 [place] [address] [place] [address] Assigned Neuroscience Provider 09/30/24 Maru Man PA-C [address] [place] [address] Physician Manager Business Banking Dermatology 10/03/24 Maru Man PA-C [address] [place] [address] Physician Manager Business Banking Dermatology 10/22/24 Jelena David OD [address] [place] [address] [place] [address] Assigned Surgical Provider 10/31/24 documented as of this encounter
--- OUTSIDE RECORDS SUMMARY | 2024-11-21 05:13 | XMS_ITS | Encounter Summary ---
Author Organization [place] [place] Address [address] [place] [address] Care Team Providers Care Communications Coordinator Name Role Phone Diana Desir [facility] Unavailable Rain Galaviz PA-C Unavailable Tavia Wyatt MD Unavailable Erica Farrell APRN HRIS ANALYST Unavailable Rich Barrett MD Unavailable [phone] Neil Kent MD Unavailable Diana Desir [facility] Unavailable Livan Sharif MD Unavailable Catherine Cm MD Unavailable + Valery Veronica PA-C Unavailable Brea Quinn BUYING INTERN HRIS ANALYST Unavailable Brea Quinn BUYING INTERN HRIS ANALYST Unavailable Jose Francisco Johnson MD Unavailable Alfonso Renteria MD Unavailable [phone] Esha Grimm PA-C Primary Care Provider [phone] Radha Lomeli APRN HRIS ANALYST Unavailable Jelena David OD Unavailable [phone] Esha Grimm PA-C Unavailable [phone] JeremíasValery damon PA-C Unavailable Rey Tay MD Unavailable Rocky Zepeda DO Unavailable Philip Dumont MD Unavailable Meredith Carrera PA-C Unavailable [phone] Neil Kent MD Unavailable Juan Pablo Emmanuel MD Unavailable Audrey Waite PA-C Unavailable [phone] JeremíasValery damon PA-C Unavailable Herminia Hatch MD Unavailable Jelena David OD Unavailable [phone] Juan Pablo Emmanuel MD Unavailable Maru Man PA-C Unavailable Maru Man PA-C Unavailable Jelena David OD Unavailable Encounter Details Date Type Department Care Team (Late st Contact Info) Description 11/21/2023 [facility] Medical Advice [facility] [address] [place] [address] Sofia Alcantar Social History Tobacco [...] PHQ-2 Score 0 10/25/2023 [facility] Questionnaire [...] exercise at this level? 30 min 03/10/2023 Bronaugh Depression Scale Answer Date Recorded Bronaugh Depression Score 5 01/14/2021 Last EPDS Self [...] PM CDT Legal Sex Female 4:13 AM LITERACY TUTOR Gender Identity Female 03/02/2021 5:45 PM CDT Sexual Orientation Straight 02/28/2020 12 :51 AM CDT documented as of this encounter Plan of Treatment Upcoming Encounters Date Type Department Care Team (Late st Contact Info) Description 11/21/2024 7:00 AM CDT Office Visit [facility] [address] [address] Maru Man PA-C [address] [address] 12/20/2024 2:30 PM CDT Office Visit [address] [place] [phone] Esha Grimm PA-C [address] [place] [address] 04/16/2025 11:00 AM CDT Virtual Visit [facility] [address] 4th [place] [phone] Meredith Carrera PA-C [address] [place] [address] [phone] documented as of this encounter Visit Diagnoses [...] Total Score: 4 06/20/20 23 8:40 AM LITERACY TUTOR documented as of this encounter Care Teams Communications Coordinator Relationship Specialty Start Date End Date Esha Grimm PA-C [address] [place] [address] PCP - General Family Medicine 05/04/23 Diana Desir, [facility] [address] [place], [place] [phone] Pharmacist Pharmacist 04/17/21 Rain Galaviz PA-C [address] [place] [address] DR [facility] [phone] Physician Six Sigma Black Belt Engineer Dermatology 04/28/21 Tavia Wyatt MD [address] [place] [address] [facility] [place] [id number] Dermatology 07/14/21 Erica Farrell APRN HRIS ANALYST [address] [place] [id number] Nurse Practitioner Cardiovascular Disease 09/09/21 Rich Barrett MD [address] [place] 122225 Physician Ophthalmology 01/21/22 Neil Kent MD [address] [place] [address] 910325 Dermatology 02/24/22 Diana Desir, [facility] [address] [place], [place] 669446 Assigned [place] Pharmacist 04/07/22 Livan Sharif MD [address] [place] 257395 Cardiovascular Disease 05/14/22 Catherine Cm MD [address] [place] [id number] Cardiovascular Disease 07/21/22 Valery Veronica, PA-C [address] [place] [address] 941885 Physician Six Sigma Black Belt Engineer Dermatology 07/21/22 Brea Quinn APRN HRIS ANALYST 500 [place] [address] Nurse Practitioner Dermatology 09/21/22 Brea Quinn APRN HRIS ANALYST 6401 [place] [address] Assigned Surgical Provider 10/09/22 05/01/24 [place] [address] [address] Assigned Musculoskeletal Provider 10/09/22 05/01/24 Alfonso Renteria MD 5775 [facility] 200 [place], [place] 913826 Assigned Neuroscience Provider 04/02/23 09/29/24 Radha Lomeli APRN HRIS ANALYST [address] [id number] [place] [address] Assigned Heart and Vascular Provider 05/28/23 Jelena David OD [address] [facility] [place] [address] Ophthalmology 06/15/23 Esha Grimm PA-C [address] [place] [phone] Assigned PCP 07/16/23 Valery Veronica PA-C 909 [place], [place] 148445 Physician Six Sigma Black Belt Engineer Dermatology 09/19/23 Rey Tay MD [address] [place] [address] 763655 MD Gastroenterology 09/20/23 Rocky Zepeda DO [address] [place] [address] Physician Gastroenterology 09/20/23 Philip Dumont MD [address] [place] [address] 769715 Physician Ophthalmology 09/22/23 Meredith Carrera PA-C [address] [place] [address] 788815 Assigned Gastroenterology Provider 11/01/23 Neil Kent MD [address] [place] [address] Dermatology 11/02/23 [place] [address] [facility] [place] [address] Neurological Surgery 12/26/23 Audrey Waite PA-C [address] [place] [address] Physician Six Sigma Black Belt Engineer Dermatology 02/28/24 Valery Veronica PA-C 001384 [place] [address] Physician Six Sigma Black Belt Engineer Dermatology 04/10/24 Herminia Hatch MD [address] [place] [address] Assigned Rheumatology Provider 07/02/24 Jelena David OD [address] [place] [address] [place] [address] Ophthalmology 08/30/24 [place] [address] [place] [address] Assigned Neuroscience Provider 09/30/24 Maru Man PA-C [address] [place] [address] Physician Six Sigma Black Belt Engineer Dermatology 10/03/24 Maru Man PA-C [address] [place] [address] Physician Six Sigma Black Belt Engineer Dermatology 10/22/24 Jelena David OD [address] [place] [address] [place] [address] Assigned Surgical Provider 10/31/24 documented as of this encounter
--- OUTSIDE RECORDS SUMMARY | 2024-11-21 05:13 | XMS_ITS | Encounter Summary ---
Author Organization [facility] Address [address] [place] [address] Care Team Providers Care Plate Straightener Name Role Phone Lita Oseguera Unavailable Unavailable Marija Edgar APRN CRYSTALLOGRAPHY TEACHER Primary Care Provider + Chanelle Mccann APRN CNM Unavailab le Kyara De La Fuente RN Unavailable [phone] Marija Edgar APRN CRYSTALLOGRAPHY TEACHER Unavailable Mynor Broussard MD Unavailable [phone] Keisha Dotson MD Unavailable Mary Mejia Unavailable Unavailable Stacey Briones SHOW JUMPING INSTRUCTOR Unavailable Lesley Guillermo CHW Unavailable Mary Mejia Unavailable Unavailable Lita Oseguera Unavailable Unavailable Galo Burrell MD Unavailable Unavailable Cristina Wood Unavailable Lesley Guillermo CHW Unavailable Meredith Bedoya Unavailable Unavailable Cristina Wood Unavailable Diana Desir [facility] Unavailable Ruhland, Rain Lena PA-C Unavailable Summer Lara MD Unavailable [phone] Summer Lara MD Unavailable [phone] Summer Lara MD Unavailable [phone] Tavia Wyatt MD Unavailable [phone] Johnny Murillo MD Unavailable [phone] Erica Farrell APRN CRYSTALLOGRAPHY TEACHER Unavailable VikasTeresita H Unavailable Tavia Wyatt MD Unavailable [phone] Diana Desir [facility] Unavailable [phone] Rich Barrett MD Unavailable [phone] Neil Kent MD Unavailable Roney Story [facility] Unavailable Erica Farrell APRN CRYSTALLOGRAPHY TEACHER Unavailable Diana Desir [facility] Unavailable [phone] Jelena David OD Unavailable [phone] Galo Burrell MD Unavailable Unavailable Livan Sharif MD Unavailable Livan Sharif MD Unavailable Catherine Cm MD Unavailable + Valery Veronica PA-C Unavailable [phone] Catherine Cm MD Unavailable + Johnny Murillo MD Unavailable [phone] Brea Quinn APRN CRYSTALLOGRAPHY TEACHER Unavailable [phone] Brea Quinn ELECTRIC TRUCK CRANE OPERATOR CRYSTALLOGRAPHY TEACHER Unavailable [phone] Jose Francisco Johnson MD Unavailable Livan Sharif MD Unavailable Catherine Cm MD Unavailable + Sydnie Martinez RN Unavailable Unavailable Alfonso Renteria MD Unavailable [phone] Esha Grimm PA-C Primary Care Provider Cheng Todd PA-C Unavailable Radha Lomeli APRN, CNP Unavailable Jelena David OD Unavailable Pao Joseph RN Unavailable Unavailable Esha Grimm PA-C Unavailable [phone] Valery Veronica PA-C Unavailable Rey Tay MD Unavailable Rocky Zepeda DO Unavailable Philip Dumont MD Unavailable Meredith Carrera PA-C Unavailable Neil Kent MD Unavailable Juan Pablo Emmanuel MD Unavailable Audrey Waite PA-C Unavailable Valery Veronica PA-C Unavailable Herminia Hatch MD Unavailable Jelena David OD Unavailable [phone] Juan Pablo Emmanuel MD Unavailable Maru Man PA-C Unavailable Maru Man PA-C Unavailable Jelena David OD Unavailable Encounter Details Date Type Department Care Team (Late st Contact Info) Description 07/17/2020 [facility] Medical Advice [facility] Epilepsy Care [address], [address] [place] [address] Keisha Dotson MD [address] [place] [address] Social History Tobacco Use Types Packs/Day Years [...] CDT Legal Sex Female 4:13 AM COMMUNITY WORKER Gender Identity Female 03/02/2021 5:45 PM CDT Sexual Orientation Straight 02/28/2020 12 :51 AM CDT COVID-19 Exposure Response Date Recorded In the last month, have you been in contact with someone who was confirmed or suspected to have Coronavirus / COVID-19? No / Unsure 06/24/2020 3:01 PM COMMUNITY WORKER documented as of this encounter Miscellaneous Notes * Telephone Encounter - Kyara De La Fuente RN - 07/23/2020 1:41 PM CST [facility] intoler[facility] of levetiracetam. She stayed [...] her shewouldn't need medication her whole life. UNITY WORKER documented in this encounter Plan of Treatment Upcoming Encounters Date Type Department Care Team (Late st Contact Info) Description 11/21/2024 7:00 AM CDT Office Visit [facility] [address] [address] Maru Man PA-C [address] [address] 12/20/2024 2:30 PM CDT Office Visit [facility] [address] [place] [address] Esha Grimm PA-C [id number] [place] [address] 04/16/2025 11:00 AM CDT Virtual Visit [facility]astroenterology [facility] [address] [place] [phone] Meredith Carrera PA-C [address] [place] [address] documented as of this encounter Visit Diagnoses Not on filedocumented in this encounter Additional Health Concerns Infection Onset Date Last Indicated Resolved Time Rule Out COVID-19 07/30/2020 07/30/2020 07/30/2020 7:11 PM COMMUNITY WORKER Rule Out COVID-19 08/30/2020 08/30/2020 08/30/2020 5:05 PM COMMUNITY WORKER Rule Out COVID-19 09/24/2020 09/24/2020 09/24/2020 9:24 AM CDT Rule Out COVID-19 11/05/2020 11/05/2020 11/06/2020 1:09 PM CDT Rule Out COVID-19 05/11/2021 05/11/2021 05/13/2021 10:18 AM CDT Rule Out COVID-19 07/13/2021 07/13/2021 07/14/2021 3:04 PM COMMUNITY WORKER Rule Out COVID-19 07/18/2021 07/18/2021 07/20/2021 1:56 PM COMMUNITY WORKER COVID-19 07/18/2021 07/18/2021 08/08/2021 11:3 9 PM COMMUNITY WORKER Rule Out COVID-19 12/18/2021 12/18/2021 12/19/2021 11:34 AM CDT Rule Out COVID-19 02/24/2022 02/24/2022 02/25/2022 1:08 PM CDT Rule Out COVID-19 04/26/2022 04/26/2022 04/26/2022 6:47 AM CDT Rule Out COVID-19 05/17/2022 05/17/2022 05/17/2022 10:20 PM COMMUNITY WORKER Rule Out COVID-19 06/09/2022 06/09/2022 06/09/2022 9:35 AM COMMUNITY WORKER COVID-19 06/09/2022 06/09/2022 06/30/2022 11:4 1 PM COMMUNITY WORKER Rule Out COVID-19 11/10/2022 11/10/2022 11/11/2022 12:17 PM CDT Rule Out COVID-19 03/07/2023 03/07/2023 03/07/2023 1:20 PM CDT Rule Out COVID-19 12/26/2023 12/26/2023 12/26/2023 9:50 AM CDT Rule Out COVID-19 04/09/2024 04/09/2024 04/10/2024 6:48 PM CDT Rule Out COVID-19 10/04/2024 10/04/2024 10/05/2024 9:42 AM CDT Rule Out COVID-19 11/20/2024 11/20/2024 Assessment Noted Time PHQ-9 Depression Total Score: 9 06/25/20 20 7:04 AM COMMUNITY WORKER documented as of this encounter Care Teams Plate Straightener Relationship Specialty Start Date End Date Marija Edgar APRN CRYSTALLOGRAPHY TEACHER PCP - General Nurse Practitioner 04/30/20 04/14/23 Esha Grimm PA-C [address] [place] [phone] PCP - General Family Medicine 05/04/23 Lita Oseguera Personal Advocate & Liaison (PAL) 02/28/20 03/27/23 [place] [address] [address] [facility] 200 [place], [place] 457357 Assigned OBGYN Provider 05/02/2005/09 Kyara De La Fuente, RN Specialty [employer] Athlete Neurology 06/04/20 03/05/21 Marija Edgar APRN CRYSTALLOGRAPHY TEACHER Assigned PCP 06/08/20 04/29/23 Mynor Broussard MD 6363 [facility] 500 [place] [address] Assigned Surgical Provider 06/01/20 11/28/21 Keisha Dotson MD 909 [place], [place] 051465 Assigned Neuroscience Provider 06/04/20 04/01/23 Mary Mejia Financial Resource Worker 08/07/20 08/21/20 Stacey Briones, SHOW JUMPING INSTRUCTOR Lead [employer] Primary Care - CC 08/11/2012/30 Lesley Guillermo, W Community Health Worker 08/11/2010/01 Mary Mejia Financial Resource Worker 09/02/20 10/06/20 Lita Oseguera Personal Advocate & Liaison (PAL) Family Medicine 09/10/20 09/21/20 Galo Burrell MD Assigned Heart and Vascular Provider 10/05/20 04/02/22 Cristina Wood Financial Resource Worker 10/07/20 10/14/20 Lesley Guillermo, [facility] Community Health Worker 10/23/2012/30 Meredith Bedoya Financial Resource Worker 10/23/20 11/23/20 Cristina Wood Financial Resource Worker 02/09/21 02/09/21 Diana Desir, [facility] 30[address] [place], [place] 387956 Pharmacist Pharmacist 04/17/21 Rain Galaviz PA-C [address] [place] [address] DR [place] [place], [place] [phone] Physician [employer] Internship Dermatology 04/28/21 Summer Lara MD [address] [place] [address] 290124 Assigned OBGYN Provider 05/10/2105/23 Summer Lara MD [address] [place] [address] 730794 Assigned OBGYN Provider 05/31/21 Summer Lara MD [address] [place] [address] Assigned OBGYN Provider 05/24/2105/30 Tavia Wyatt MD [address] [place] [address] Dermatology 07/14/21 Johnny Murillo MD [address] [place] [address] Assigned Musculoskeletal Provider 08/30/21 03/17/22 Erica Farrell APRN CRYSTALLOGRAPHY TEACHER 6405 [facility] [address] [place] [address] Nurse Practitioner Cardiovascular Disease 09/09/21 Teresita Bean, [facility] [address] [place] [id number] Pharmacist Pharmacist 09/24/21 09/29/21 Tavia Wyatt MD [address] [place] [address] Assigned Surgical Provider 11/29/21 05/07/22 Diana Desir, [facility] 30[address] [place] [address] Assigned MTM Pharmacist 01/02/22 Rich Barrett MD 3033 [place] [address] Physician Ophthalmology 01/21/22 Neil Kent MD 500 [place] [address] Dermatology 02/24/22 Roney Story DPM [address] [facility] [address] [place], [place] 383[address] Assigned Musculoskeletal Provider 03/20/22 08/13/22 Erica Farrell APRN CRYSTALLOGRAPHY TEACHER 1700 [place] [address] Assigned Heart and Vascular Provider 04/03/22 04/16/22 Diana Desir, [facility] [address] [place], [place] 592216 Assigned MTM Pharmacist 04/07/22 Jelena David OD [address] [facility] [place] [address] Assigned Surgical Provider 05/08/22 10/08/22 Galo Burrell MD Assigned Heart and Vascular Provider 04/17/22 06/11/22 Livan Sharif MD [address] [place] [address] Cardiovascular Disease 05/14/22 Livan Sharif MD [address] [place] [address] Assigned Heart and Vascular Provider 06/12/22 07/23/22 Catherine Cm MD [address] [place], [place] 899995 Cardiovascular Disease 07/21/22 Valery Veronica, PA-C [address] [place] [address] Physician Spring Internship Dermatology 07/21/22 Catherine Cm MD [address] [facility] [address] [place] [address] [place] [address] Assigned Heart and Vascular Provider 07/24/22 11/05/22 Johnny Murillo MD [address] [place] [address] Assigned Musculoskeletal Provider 08/14/22 10/08/22 Brea Quinn APRN CRYSTALLOGRAPHY TEACHER [address] [place] [address] 372555 Nurse Practitioner Dermatology 09/21/22 Brea Quinn APRN CRYSTALLOGRAPHY TEACHER 6401 [place] [address] Assigned Surgical Provider 10/09/22 05/01/24 [place] [address] RAZO [address] [place] [address] Assigned Musculoskeletal Provider 10/09/22 05/01/24 Livan Sharif MD [address] [facility] [place] [address] Assigned Heart and Vascular Provider 11/06/22 11/12/22 Catherine Cm MD [address] [facility] [place] 158625 Assigned Heart and Vascular Provider 11/13/22 05/27/23 Sydnie Martinez RN Personal Advocate & Liaison (PAL) Family Medicine 03/28/23 07/31/23 Alfonso Renteria MD 5775 [facility] [address] 200 [place] [address] Assigned Neuroscience Provider 04/02/23 09/29/24 Cheng Todd PA-C [address] [place] [address] Assigned PCP 04/30/23 07/15/23 Radha Lomeli APRN CRYSTALLOGRAPHY TEACHER 6405 [facility] [address] [place] [address] Assigned Heart and Vascular Provider 05/28/23 Jelena David OD [address] [facility] [place] [address] Ophthalmology 06/15/23 Pao Joseph, VJ Personal Advocate & Liaison (PAL) Nurse 08/01/23 11/07/23 Esha Grimm PA-C [address] [place] [address]68[address]83 Assigned PCP 07/16/23 Valery Veronica PA-C [address] [place] [address] 726925 Physician [employer] Dermatology 09/19/23 Rey Tay MD 909 [place] [address] Gastroenterology 09/20/23 Rocky Zepeda DO [address] [place] [address] Physician Gastroenterology 09/20/23 Philip [place] MD [address] [place] [address] Physician Ophthalmology 09/22/23 Meredith Carrera PA-C [address] [place] [address] Assigned Gastroenterology Provider 11/01/23 Neil Kent MD [address] [place] [address] MD Dermatology 11/02/23 Juan [place] [id number] [place] [address] [address] Neurological Surgery 12/26/23 Audrey Waite PA-C [address] [place] [address] Physician [employer] Dermatology 02/28/24 Valery Veronica PA-C 152823 [address] [place] [address] Physician [employer] Dermatology 04/10/24 Herminia Hatch MD [address] [place] [address] [phone] Assigned Rheumatology Provider 07/02/24 [place] [address] [place] [address] [place] [id number] Ophthalmology 08/30/24 [place] [address] [place] [address] Assigned Neuroscience Provider 09/30/24 Maru Man PA-C [address] [place] [address] Physician [employer] Dermatology 10/03/24 Maru Man PA-C [address] [place] [address] Physician [employer] Intern[employer] Dermatology 10/22/24 Jelena David OD [address]305 [facility] [place] [address] Assigned Surgical Provider 10/31/24 documented as of this encounter
--- OUTSIDE RECORDS SUMMARY | 2024-11-21 05:14 | XMS_ITS | Encounter Summary ---
Author Organization [facility] Address [address] [place] [address] Care Team Providers Care Truck Body Repairer Name Role Phone Diana Desir [facility] Unavailable Rain Galaviz PA-C Unavailable [phone] Tavia Wyatt MD Unavailable Erica Farrell APRN SHELLAC POLISHER Unavailable Rich Barrett MD Unavailable [phone] Neil Kent MD Unavailable Diana Desir [facility] Unavailable Livan Sharif MD Unavailable Catherine Cm MD Unavailable + Valery Veronica PA-C Unavailable Brea Quinn CREW SCHEDULER SHELLAC POLISHER Unavailable Brea Quinn CREW SCHEDULER SHELLAC POLISHER Unavailable Jose Francisco Johnson MD Unavailable Alfonso Renteria MD Unavailable [phone] Esha Grimm PA-C Primary Care Provider [phone] Radha Lomeli APRN SHELLAC POLISHER Unavailable Jelena David OD Unavailable Pao Joseph RN Unavailable Unavailable AlfaJesusEsha M PA-C Unavailable [phone] Valery Veronica PA-C Unavailable [phone] Rey Tay MD Unavailable Rocky Zepeda DO Unavailable Philip Dumont MD Unavailable [phone] Meredith Carrera PA-C Unavailable [phone] Neil Kent MD Unavailable Juan Pablo Emmanuel MD Unavailable Audrey Waite PA-C Unavailable [phone] JeremíasValery damon PA-C Unavailable Herminia Hatch MD Unavailable Jelena David OD Unavailable Juan Pablo Emmanuel MD Unavailable [phone] Maru Man PA-C Unavailable Mrau Man PA-C Unavailable [phone] Jelena David OD Unavailable Encounter Details Date Type Department Care Team (Late st Contact Info) Description 10/24/[address] [facility] [address] 4th [place] [address] Kenneth eDnson Social History Tobacco Use Types Packs/Day Years [...] exercise at this level? 30 min 03/10/2023 Duncan Depression Scale Answer Date Recorded Duncan Depression Score 5 01/14/2021 Last EPDS Self [...] PM CDT Legal Sex Female 4:13 AM FORMSTONE FITTER Gender Identity Female 03/02/2021 5:45 PM CDT Sexual Orientation Straight 02/28/2020 12 :51 AM CDT documented as of this encounter Plan of Treatment Upcoming Encounters Date Type Department Care Team (Late st Contact Info) Description 11/21/2024 7:00 AM CDT Office Visit [facility] [address] [address] Maru Man PA-C [address] [address] 12/20/2024 2:30 PM CDT Office Visit [facility] [address] [place] [phone] Esha Grimm PA-C [address] [place] [phone] 04/16/2025 11:00 AM CDT Virtual Visit [facility] [address] 4th [place] [phone] Meredith Carrera PA-C [address] [place] [address] 554615 documented as of this encounter Visit Diagnoses [...] Total Score: 4 06/20/20 23 8:40 AM FORMSTONE FITTER documented as of this encounter Care Teams Truck Body Repairer Relationship Specialty Start Date End Date Esha Grimm PA-C [address] [place] [phone] PCP - General Family Medicine 05/04/23 Diana Desir, [facility] [address] [place] [address] Pharmacist Pharmacist 04/17/21 Rain Galaviz PA-C [address] [place] [address] [place] [address] Physician Felt Puller Dermatology 04/28/21 Tavia Wyatt MD [address] [place] [address] DR [address] [place] [address] Dermatology 07/14/21 Erica Farrell APRN SHELLAC POLISHER [address] [place] [address] Nurse Practitioner Cardiovascular Disease 09/09/21 Rich Barrett MD [address] [place] 7[address]75 Physician Ophthalmology 01/21/22 Neil Kent MD [address] [place] [address] 968885 Dermatology 02/24/22 [facility] [address] [place] [address] Assigned [facility] Pharmacist 04/07/22 Livan Sharif MD [address] [facility] [place] [address] Cardiovascular Disease 05/14/22 Catherine Cm MD [address] [facility] [place] 8[address]05 Cardiovascular Disease 07/21/22 Valery Veronica, PA-C [address] [place] [address] 741115 Physician Felt Puller Dermatology 07/21/22 Brea Quinn APRN SHELLAC POLISHER 500 [place], [place] 253925 Nurse Practitioner Dermatology 09/21/22 Brea Quinn APRN SHELLAC POLISHER 6401 [place] [address] Assigned Surgical Provider 10/09/22 05/01/24 [place] [address] [address] Assigned Musculoskeletal Provider 10/09/22 05/01/24 Alfonso Renteria MD 5775 [facility] 200 [place], [place] 657576 Assigned Neuroscience Provider 04/02/23 09/29/24 Radha Lomeli APRN SHELLAC POLISHER [address] 0727600 [place] [address] Assigned Heart and Vascular Provider 05/28/23 Jelena David OD [address] [place] [address] Ophthalmology 06/15/23 Pao Joseph, RN Personal Advocate & Liaison (PAL) Nurse 08/01/23 11/07/23 Esha Grimm PA-C [address] [place] [address]83 Assigned PCP 07/16/23 Valery Veronica PA-C [address] [place] [address] Physician Felt Puller Dermatology 09/19/23 Rey Tay MD [address] [place] [address] MD Gastroenterology 09/20/23 Rocky Zepeda DO [address] [place] [address] Physician Gastroenterology 09/20/23 Philip Dumont MD [address] [place] [address] Physician Ophthalmology 09/22/23 Meredith Carrera PA-C [address] [place] [address] Assigned Gastroenterology Provider 11/01/23 Neil Kent MD [address] [address] Dermatology 11/02/23 [place] [address] [place] [address] Neurological Surgery 12/26/23 Audrey Waite PA-C [address] [place] [address] 565715 Physician Felt Puller Dermatology 02/28/24 Valery Veronica PA-C [address]31 [address] [place] [address] Physician Felt Puller Dermatology 04/10/24 Herminia Hatch MD [facility]5 [place], [place] 11775125 Assigned Rheumatology Provider 07/02/24 Jelena David OD [address] [facility] [place] [address] Ophthalmology 08/30/24 [place] [address] [place] [address] Assigned Neuroscience Provider 09/30/24 Maru Man PA-C [address] [place] [address] Physician Felt Puller Dermatology 10/03/24 Maru Man PA-C [address] [place] [address] Physician Felt Puller Dermatology 10/22/24 Jelena David OD [address] [facility] [place] [address] Assigned Surgical Provider 10/31/24 documented as of this encounter
--- OUTSIDE RECORDS SUMMARY | 2024-11-21 05:14 | XMS_ITS | Encounter Summary ---
Author Organization [place] Address [address] [place] [address] Care Team Providers Care Fiscal Accountant Name Role Phone Lita Oseguera Unavailable Unavailable Rakesh Cid PA-C Unavailable Marija Edgar APRN COLOR FINISHER Primary Care Provider + Chanelle Mccann APRN CN Unavailab le Lesley Guillermo CHW Unavailable [phone] Kyara De La Fuente RN Unavailable [phone] Marija Edgar APRN [facility] Unavailable Mynor Broussard MD Unavailable [phone] Keisha Dotson MD Unavailable Mary Mejia Unavailable Unavailable Stacey Briones CHIEF VENDOR QUALITY Unavailable Lesley Guillermo CHW Unavailable [phone] Mary Mejia Unavailable Unavailable Lita Oseguera Unavailable Unavailable Galo Burrell MD Unavailable Unavailable Cristina Wood Unavailable Lesley Guillermo CHW Unavailable [phone] Meredith Bedoya Unavailable Unavailable Cristina Wood Unavailable Diana Desir [facility] Unavailable [phone] Rain Galaviz PA-C Unavailable Summer Lara MD Unavailable [phone] Summer Lara MD Unavailable [phone] Summer Lara MD Unavailable [phone] Tavia Wyatt MD Unavailable [phone] Johnny Murillo MD Unavailable [phone] Erica Farrell APRN COLOR FINISHER Unavailable Teresita Bean [facility] Unavailable Tavia Wyatt MD Unavailable [phone] Diana Desir [facility] Unavailable [phone] Rich Barrett MD Unavailable Neil Kent MD Unavailable Roney StoryM Unavailable Erica Farrell APRN COLOR FINISHER Unavailable + Diana Desir [facility] Unavailable [phone] Jelena David OD Unavailable Galo Burrell MD Unavailable Unavailable Livan Sharif MD Unavailable Livan Sharif MD Unavailable + Catherine Cm MD Unavailable + Valery Veronica PA-C Unavailable [phone] Catherine Cm MD Unavailable + Johnny Murillo MD Unavailable [phone] Brea Quinn APRN COLOR FINISHER Unavailable [phone] [place], Brea P [place] COLOR FINISHER Unavailable [phone] Jose Francisco Johnson MD Unavailable Livan Sharif MD Unavailable Catherine Cm MD Unavailable + Sydnie Martinez RN Unavailable Unavailable Alfonso Renteria MD Unavailable Esha Grimm PA-C Primary Care Provider Cheng Todd PA-C Unavailable ArmaniRadha [place] COLOR FINISHER Unavailable Jelena David OD Unavailable Pao Joseph RN Unavailable Unavailable Esha Grimm PA-C Unavailable [phone] Valery Veronica PA-C Unavailable Rey Tay MD Unavailable Rocky Zepeda DO Unavailable Philip Dumont MD Unavailable [phone] Meredith Carrera PA-C Unavailable [phone] Neil Kent MD Unavailable Juan Pablo Emmanuel MD Unavailable Audrey Waite PA-C Unavailable Valery Veronica PA-C Unavailable Herminia Hatch MD Unavailable Jelena David OD Unavailable Juan Pablo Emmanuel MD Unavailable Maru Man PA-C Unavailable [phone] Maru Man PA-C Unavailable [phone] Reason for Visit * Reason Onset Date Comments Referral 05/19/2020 Encounter Details Date Type Department Care Team (Late st Contact Info) Description 05/19/2020 Telephone [facility] [address], [address] [place] [address] Unknown Referral Social History Tobacco [...] Answer Date Recorded PHQ-2 Score 1 10/24/2024 [facility] [place] of Occupat ional Health - Occupational [...] exercise at this level? 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. Please review. Thanks. Action Taken: Other: 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 [address] [phone] Maru Man PA-C [address] [place] [address] 12/20/2024 2:30 PM CDT Office Visit [address] [address] Esha Grimm PA-C [address] [place] [phone] 04/16/2025 11:00 AM CDT Virtual Visit [facility] [address]th [place] [phone] Meredith Carrera PA-C [address] [place] [address] documented as of this encounter Visit Diagnoses Not on filedocumented in this encounter Additional Health Concerns Infection Onset Date Last Indicated Resolved Time Rule Out COVID-19 07/30/2020 07/30/2020 07/30/2020 7:11 PM INHALATION THERAPY AIDES TEACHER Rule Out COVID-19 08/30/2020 08/30/2020 08/30/2020 5:05 PM INHALATION THERAPY AIDES TEACHER Rule Out COVID-19 09/24/2020 09/24/2020 09/24/2020 9:24 AM CDT Rule Out COVID-19 11/05/2020 11/05/2020 11/06/2020 1:09 PM CDT Rule Out COVID-19 05/11/2021 05/11/2021 05/13/2021 10:18 AM CDT Rule Out COVID-19 07/13/2021 07/13/2021 07/14/2021 3:04 PM INHALATION THERAPY AIDES TEACHER Rule Out COVID-19 07/18/2021 07/18/2021 07/20/2021 1:56 PM INHALATION THERAPY AIDES TEACHER COVID-19 07/18/2021 07/18/2021 08/08/2021 11:3 9 PM INHALATION THERAPY AIDES TEACHER Rule Out COVID-19 12/18/2021 12/18/2021 12/19/2021 11:34 AM CDT Rule Out COVID-19 02/24/2022 02/24/2022 02/25/2022 1:08 PM CDT Rule Out COVID-19 04/26/2022 04/26/2022 04/26/2022 6:47 AM CDT Rule Out COVID-19 05/17/2022 05/17/2022 05/17/2022 10:20 PM INHALATION THERAPY AIDES TEACHER Rule Out COVID-19 06/09/2022 06/09/2022 06/09/2022 9:35 AM INHALATION THERAPY AIDES TEACHER COVID-19 06/09/2022 06/09/2022 06/30/2022 11:4 1 PM INHALATION THERAPY AIDES TEACHER Rule Out COVID-19 11/10/2022 11/10/2022 11/11/2022 12:17 PM CDT Rule Out COVID-19 03/07/2023 03/07/2023 03/07/2023 1:20 PM CDT Rule Out COVID-19 12/26/2023 12/26/2023 12/26/2023 9:50 AM CDT Rule Out COVID-19 04/09/2024 04/09/2024 04/10/2024 6:48 PM CDT Rule Out COVID-19 10/04/2024 10/04/2024 10/05/2024 9:42 AM CDT Assessment Noted Time PHQ-9 Depression Total Score: 6 08/28/19 7:05 AM INHALATION THERAPY AIDES TEACHER documented as of this encounter Care Teams Fiscal Accountant Relationship Specialty Start Date End Date Marija Edgar APRN COLOR FINISHER [address] [place] [address] PCP - General Nurse Practitioner 04/30/20 04/14/23 Esha Grimm PA-C [address] [place] [phone] PCP - General Family Medicine 05/04/23 Lita Oseguera Personal Advocate & Liaison (PAL) 02/28/20 03/27/23 Rakesh Cid PA-C [address] [place] [address] Assigned PCP 03/02/20 06/07/20 [place] [address] [address] [facility] 200 [place] [address] Assigned OBGYN Provider 05/02/2005/09 Lesley Guillermo, CHW Community Health Worker 05/30/2005/12 Kyara De La Fuente, RN Specialty Chief Radiation Therapist Neurology 06/04/20 03/05/21 Marija Edgar APRN COLOR FINISHER [address] [place], [place] [phone] Assigned PCP 06/08/20 04/29/23 Mynor Broussard MD 6363 [facility] 500 [place], [place] 459825 Assigned Surgical Provider 06/01/20 11/28/21 Keisha Dotson MD 9 [place], [place] 252335 Assigned Neuroscience Provider 06/04/20 04/01/23 Mary Mejia Financial Resource Worker 08/07/20 08/21/20 Stacey Briones, [facility] Lead Chief Radiation Therapist Primary Care - CC 08/11/2012/30 Lesley Guillermo, W Community Health Worker 08/11/2010/01 Mary Mejia Financial Resource Worker 09/02/20 10/06/20 Lita Oseguera Personal Advocate & Liaison (PAL) Family Medicine 09/10/20 09/21/20 Galo Burrell MD Assigned Heart and Vascular Provider 10/05/20 04/02/22 Cristina Wood Financial Resource Worker 10/07/20 10/14/20 Lesley Guillermo, [facility] Community Health Worker 10/23/2012/30 Meredith Bedoya Financial Resource Worker 10/23/20 11/23/20 Nina Cristina Financial Resource Worker 02/09/21 02/09/21 Diana Desir, [facility] [address] [place] [address] Pharmacist Pharmacist 04/17/21 Rain Galaviz PA-C [address] [place] [address] DR [place] [place], [place] [phone] Physician Boat Buffer Plastic Dermatology 04/28/21 Summer Lara MD [address] [place], [place] 0569[address] Assigned OBGYN Provider 05/10/2105/23 Summer Lara MD [address] [facility] [place], [place] 285974 Assigned OBGYN Provider 05/31/21 2 Summer Lara MD [address] [facility] [place], [place] 114954 Assigned OBGYN Provider 05/24/2105/30 Tavia Wyatt MD [address] [facility] [place] [address] Dermatology 07/14/21 Johnny Murillo MD [address] [place] [address] R200 [place] [address] Assigned Musculoskeletal Provider 08/30/21 03/17/22 Erica Farrell APRN COLOR FINISHER 6405 [facility] [address] [place] [address] Nurse Practitioner Cardiovascular Disease 09/09/21 Teresita Bean, [facility] [address] [place] [address] Pharmacist Pharmacist 09/24/21 09/29/21 Tavia Wyatt MD [address] [place], [place] 319080 Assigned Surgical Provider 11/29/21 05/07/22 [facility] [address] [place] [address] Assigned MTM Pharmacist 01/02/22 Rich Barrett MD [address] [place] [address] Physician Ophthalmology 01/21/22 Neil Kent MD 500 [place] [address] Dermatology 02/24/22 Roney Story DPM 156[address] [facility] 300 [place] [address] Assigned Musculoskeletal Provider 03/20/22 08/13/22 Erica Farrell APRN COLOR FINISHER 1700 [place] [address] Assigned Heart and Vascular Provider 04/03/22 04/16/22 Diana Desir, [facility] [address] [place] [address] Assigned MTM Pharmacist 04/07/22 Jelena David OD [address] [facility] [place] [address] Assigned Surgical Provider 05/08/22 10/08/22 Galo Burrell MD Assigned Heart and Vascular Provider 04/17/22 06/11/22 Livan Sharif MD [address] [place] [address] [place] [address] Cardiovascular Disease 05/14/22 Livan Sharif MD [address] [place] [address] [place] [address] Assigned Heart and Vascular Provider 06/12/22 07/23/22 Catherine Cm MD [address] [place] [address] [place] [address] Cardiovascular Disease 07/21/22 Valery Veronica PA-C [address]09 [place], [place] 298485 Physician Boat Buffer Plastic Dermatology 07/21/22 Catherine Cm MD [address] [place] [address] [place] [address] Assigned Heart and Vascular Provider 07/24/22 11/05/22 Johnny Murillo MD [facility] [address] [place] [address] [address] Assigned Musculoskeletal Provider 08/14/22 10/08/22 Brea Quinn APRN COLOR FINISHER [address] [place] [address] Nurse Practitioner Dermatology 09/21/22 Brea Quinn APRN COLOR FINISHER [facility]1 [place] [address] Assigned Surgical Provider 10/09/22 05/01/24 [place] [address] [facility] 300 [place] [address] Assigned Musculoskeletal Provider 10/09/22 05/01/24 Livan Sharif MD 6405 [facility] [address] [place] [address] Assigned Heart and Vascular Provider 11/06/22 11/12/22 Catherine Cm MD [address] [facility] [address] [place] [address] Assigned Heart and Vascular Provider 11/13/22 05/27/23 Sydnie Martinez RN Personal Advocate & Liaison (PAL) Family Medicine 03/28/23 07/31/23 Alfonso Renteria MD 5775 [facility] 200 [place], [place] 0[address]286 Assigned Neuroscience Provider 04/02/23 09/29/24 Cheng Todd PA-C [address] [place] [address] [id number] Assigned PCP 04/30/23 07/15/23 Radha Lomeli APRN COLOR FINISHER 6405 [facility] [address] [place] [address] Assigned Heart and Vascular Provider 05/28/23 Jelena David OD [address] [facility] [place] [address] MD Ophthalmology 06/15/23 Pao Joseph, VJ Personal Advocate & Liaison (PAL) Nurse 08/01/23 11/07/23 Esha Grimm PA-C [address] [place] [address]483 Assigned PCP 07/16/23 Valery Veronica PA-C [address] [place] [address] Physician Boat Buffer Plastic Dermatology 09/19/23 Rey Tay MD [address] [place] [address] Gastroenterology 09/20/23 Rocky Zepeda DO [address] [place] [address] 310125 Physician Gastroenterology 09/20/23 Philip Dumont MD [address] [place] [address] 985405 Physician Ophthalmology 09/22/23 Meredith Carrera PA-C 909 [place] [address] Assigned Gastroenterology Provider 11/01/23 Neil Kent MD [address] [address] Dermatology 11/02/23 [place] [address] [place] [address] 447487 Neurological Surgery 12/26/23 Audrey Waite PA-C 500 [place] [address] Physician Boat Buffer Plastic Dermatology 02/28/24 Valery Veronica PA-C 581873 [place], [place] [address] Physician Boat Buffer Plastic Dermatology 04/10/24 Herminai Hatch MD [facility]5 [place], [place] 55754125 Assigned Rheumatology Provider 07/02/24 [place] [address] [place] [address] [place] [address] Ophthalmology 08/30/24 [place] [address] [place] [address] Assigned Neuroscience Provider 09/30/24 Maru Man PA-C [address] [place] [address] Physician Boat Buffer Plastic Dermatology 10/03/24 Maru Man PA-C [address] [place] [address] Physician Boat Buffer Plastic Dermatology 10/22/24 documented as of this encounter
--- OUTSIDE RECORDS SUMMARY | 2024-11-21 05:14 | XMS_ITS | Encounter Summary ---
Author Organization [facility] Address [address] [place] [address] Care Team Providers Care Building Manager Name Role Phone Lita Oseguera Unavailable Unavailable Rakesh Cid PA-C Unavailable Marija Edgar APRN [facility] Primary Care Provider + Chanelle Mccann APRN CN Unavailab le Lesley Guillermo CHW Unavailable [phone] Kyara De La Fuente RN Unavailable [phone] Marija Edgar APRN [facility] Unavailable Mynor Broussard MD Unavailable [phone] Keisha Dotson MD Unavailable Mary Mejia Unavailable Unavailable Stacey Briones CHANNEL CEMENTER OUTSOLE MACHINE Unavailable [phone] Lesley Guillermo CHW Unavailable [phone] Mary Mejia Unavailable Unavailable Lita Oseguera Unavailable Unavailable Galo Burrell MD Unavailable Unavailable Cristina Wood Unavailable Lesley Guillermo CHW Unavailable [phone] Meredith Bedoya Unavailable Unavailable Cristina Wood Unavailable Diana Desir [facility] Unavailable [phone] Rain Galaviz PA-C Unavailable Summer Lara MD Unavailable [phone] Summer Lara MD Unavailable [phone] Summer Lara MD Unavailable [phone] Tavia Wyatt MD Unavailable [phone] Johnny Murillo MD Unavailable [phone] Erica Farrell APRN [facility]INE HAND Unavailable Teresita Bean [facility] Unavailable Tavia Wyatt MD Unavailable [phone] Diana Desir [facility] Unavailable [phone] Rich Barrett MD Unavailable Neil Kent MD Unavailable Roney StoryM Unavailable Erica Farrell APRN [facility] Unavailable + Diana Desir [facility] Unavailable [phone] Jelena David OD Unavailable Galo Burrell MD Unavailable Unavailable Livan Sharif MD Unavailable Livan Sharif MD Unavailable + Catherine Cm MD Unavailable + Valery Veronica PA-C Unavailable [phone] Catherine Cm MD Unavailable + Johnny Murillo MD Unavailable [phone] Brea Quinn APRN [facility] Unavailable [phone] [place], Brea P APPLIANCE TECHNICIAN [facility] Unavailable [phone] Jose Francisco Johnson MD Unavailable Livan Sharif MD Unavailable Catherine Cm MD Unavailable + Sydnie Martinez RN Unavailable Unavailable Alfonso Renteria MD Unavailable Esha Grimm PA-C Primary Care Provider Cheng Todd PA-C Unavailable Armani Radha Sia APPLIANCE TECHNICIAN [facility] Unavailable [phone] Jelena David OD Unavailable [phone] Pao Joseph RN Unavailable Unavailable Esha Grimm PA-C Unavailable [phone] Valery Veronica PA-C Unavailable Rey Tay MD Unavailable Rocky Zepeda DO Unavailable Philip Dumont MD Unavailable [phone] Meredith Carrera PA-C Unavailable [phone] Neil Kent MD Unavailable Juan Pablo Emmanuel MD Unavailable Audrey Waite PA-C Unavailable Valery Veronica PA-C Unavailable Herminia Hatch MD Unavailable Jelena David OD Unavailable [phone] Juan Pablo Emmanuel MD Unavailable Maru Man PA-C Unavailable [phone] Maru Man PA-C Unavailable [phone] Jelena David OD Unavailable Encounter Details Date Type Department Care Team (Late st Contact Info) Description 05/23/2020 MyC Medical Advice [address] [phone] Marija Edgar, ARLENE [facility] [address] [place] [phone] Social History Tobacco Use Types Packs/Day Years [...] PM CDT Legal Sex Female 4:13 AM [employer] Gender Identity Female 03/02/2021 5:45 PM CDT Sexual Orientation Straight 02/28/2020 12 :51 AM CDT COVID-19 Exposure Response Date Recorded In the last month, have you been in contact with someone who was confirmed or suspected to have Coronavirus / COVID-19? No / Unsure 05/12/2020 9:03 AM [employer]PUT[employer] SHERIFF documented as of this encounter Plan of Treatment Upcoming Encounters Date Type Department Care Team (Late st Contact Info) Description 11/21/2024 7:00 AM CDT Office Visit [address] [phone] Maru Man PA-C [address] [place] [address] 12/20/2024 2:30 PM CDT Office Visit [facility] [phone] [place] [phone] Esha Grimm PA-C [id number] [place] [phone] 04/16/2025 11:00 AM CDT Virtual Visit [facility] [place] [address] [facility] [address] 4th [place] [address] Meredith Carrera PA-C [address] [place] [address] documented as of this encounter Visit Diagnoses Not on filedocumented in this encounter Additional Health Concerns Infection Onset Date Last Indicated Resolved Time Rule Out COVID-19 07/30/2020 07/30/2020 07/30/2020 7:11 PM [employer]ER[employer] Rule Out COVID-19 08/30/2020 08/30/2020 08/30/2020 5:05 PM [employer] DEPUT[employer] SHERIFF Rule Out COVID-19 09/24/2020 09/24/2020 09/24/2020 9:24 AM CDT Rule Out COVID-19 11/05/2020 11/05/2020 11/06/2020 1:09 PM CDT Rule Out COVID-19 05/11/2021 05/11/2021 05/13/2021 10:18 AM CDT Rule Out COVID-19 07/13/2021 07/13/2021 07/14/2021 3:04 PM [employer] DEPUT[employer] SHERIFF Rule Out COVID-19 07/18/2021 07/18/2021 07/20/2021 1:56 PM GR[employer] J[employer] DEPUTY SHERIFF COVID-19 07/18/2021 07/18/2021 08/08/2021 11:3 9 PM [employer] DEPUT[employer] SHERIFF Rule Out COVID-19 12/18/2021 12/18/2021 12/19/2021 11:34 AM CDT Rule Out COVID-19 02/24/2022 02/24/2022 02/25/2022 1:08 PM CDT Rule Out COVID-19 04/26/2022 04/26/2022 04/26/2022 6:47 AM CDT Rule Out COVID-19 05/17/2022 05/17/2022 05/17/2022 10:20 PM [employer] DEPUT[employer] SHERIFF Rule Out COVID-19 06/09/2022 06/09/2022 06/09/2022 9:35 AM GR[employer] J[employer]Y DEPUTY SHERIFF COVID-19 06/09/2022 06/09/2022 06/30/2022 11:4 1 PM [employer] DE[employer]ER[employer] Rule Out COVID-19 11/10/2022 11/10/2022 11/11/2022 12:17 PM CDT Rule Out COVID-19 03/07/2023 03/07/2023 03/07/2023 1:20 PM CDT Rule Out COVID-19 12/26/2023 12/26/2023 12/26/2023 9:50 AM CDT Rule Out COVID-19 04/09/2024 04/09/2024 04/10/2024 6:48 PM CDT Rule Out COVID-19 10/04/2024 10/04/2024 10/05/2024 9:42 AM CDT Rule Out COVID-19 11/20/2024 11/20/2024 Assessment Noted Time PHQ-9 Depression Total Score: 6 08/28/19 7:05 AM [employer] DEPUT[employer] SHERIFF documented as of this encounter Care Teams Building Manager Relationship Specialty Start Date End Date Marija Edgar APRN [facility] [address] [place] [address] PCP - General Nurse Practitioner 04/30/20 04/14/23 Esha Grimm PA-C [address] [place] [phone] PCP - General Family Medicine 05/04/23 Lita Oseguera Personal Advocate & Liaison (PAL) 02/28/20 03/27/23 Rakesh Cid PA-C [address] [place] [address] Assigned PCP 03/02/20 06/07/20 Chanelle Mccann APRN [facility] [address] [place] [address] Assigned OBGYN Provider 05/02/2005/09 Lesley Guillermo [facility] Community Health Worker 05/30/2005/12 Kyara De La Fuente, RN Specialty Bean Sorter Neurology 06/04/20 03/05/21 Marija Edgar APRN [facility] [address] [place] [address] Assigned PCP 06/08/20 04/29/23 Mynor Broussard MD [address] [address] Assigned Surgical Provider 06/01/20 11/28/21 Keisha Dotson MD [address]09 [place], [place] [phone] Assigned Neuroscience Provider 06/04/20 04/01/23 Mary Mejia Financial Resource Worker 08/07/20 08/21/20 Stacey Briones, [facility] Lead Bean Sorter Primary Care - CC 08/11/2012/30 Lesley Guillermo [facility] Community Health Worker 08/11/2010/01 Mary Mejia Financial Resource Worker 09/02/20 10/06/20 Lita Oseguera Personal Advocate & Liaison (PAL) Family Medicine 09/10/20 09/21/20 Galo Burrell MD Assigned Heart and Vascular Provider 10/05/20 04/02/22 Cristina Wood Financial Resource Worker 10/07/20 10/14/20 Lesley Guillermo, [facility] Community Health Worker 10/23/2012/30 Meredith Bedoya Financial Resource Worker 10/23/20 11/23/20 Nina Cristina Financial Resource Worker 02/09/21 02/09/21 Diana Desir, [facility] [address] [place] [address] Pharmacist Pharmacist 04/17/21 Rain Galaviz PA-C [address] [place] [address] [address] [place], [place] [phone] Physician Tank Truck Operator Dermatology 04/28/21 Summer Lara MD [address] [place] [address] [phone] Assigned OBGYN Provider 05/10/2105/23 Summer Lara MD [address] [facility] [place], [place] [phone] Assigned OBGYN Provider 05/31/21 2 Summer Lara MD [address] [place] [address] [phone] Assigned OBGYN Provider 05/24/2105/30 Tavia Wyatt MD [address] [facility] [place], [place] [phone] Dermatology 07/14/21 Johnny Murillo MD [address] [facility] [address] [place], [place] [address] Assigned Musculoskeletal Provider 08/30/21 03/17/22 Erica Farrell APRN [facility] [address] [facility] [address] [place] [address] Nurse Practitioner Cardiovascular Disease 09/09/21 Teresita Bean, [facility] [address] [place] [phone] Pharmacist Pharmacist 09/24/21 09/29/21 Tavia Wyatt MD [address] [place] [address] Assigned Surgical Provider 11/29/21 05/07/22 [facility] [address] [place] [address] Assigned MTM Pharmacist 01/02/22 Rich Barrett MD [address] [place] [address] Physician Ophthalmology 01/21/22 Neil Kent MD [address] [place], [place] 185105 Dermatology 02/24/22 Roney Story DPM [address] [facility] [address] [place], [place] [address]497 Assigned Musculoskeletal Provider 03/20/22 08/13/22 Erica Farrell APRN [facility] [address] [place] [address] Assigned Heart and Vascular Provider 04/03/22 04/16/22 Diana Desir, [facility] [address] [place] [address] Assigned MTM Pharmacist 04/07/22 Jelena David OD [address] [facility] [place] [address] Assigned Surgical Provider 05/08/22 10/08/22 Galo Burrell MD Assigned Heart and Vascular Provider 04/17/22 06/11/22 Livan Sharif MD [address] [place] 327[address] Cardiovascular Disease 05/14/22 Livan Sharif MD [address] [place] [address] Assigned Heart and Vascular Provider 06/12/22 07/23/22 Catherine Cm MD [address] [place] [address]295 Cardiovascular Disease 07/21/22 Valery Veronica PAUcheC [address] [place], [place] 443115 Physician Tank Truck Operator Dermatology 07/21/22 Catherine Cm MD [address] [place] [address] Assigned Heart and Vascular Provider 07/24/22 11/05/22 Johnny Murillo MD [address] [place] [address] Assigned Musculoskeletal Provider 08/14/22 10/08/22 Brea Quinn APRN [facility]INE HAND [address] [facility], [place] 447[address] Nurse Practitioner Dermatology 09/21/22 Brea Quinn APRN MAGAZINE HAND [facility]1 [facility] [place] 191922 Assigned Surgical Provider 10/09/22 05/01/24 [place] [address] [facility] [address] [place], [place] 8627[address] Assigned Musculoskeletal Provider 10/09/22 05/01/24 Livan Sharif MD [address] [facility] [address] [place] 157015 Assigned Heart and Vascular Provider 11/06/22 11/12/22 Catherine Cm MD [address] [facility] [place] [address] [place] [phone] Assigned Heart and Vascular Provider 11/13/22 05/27/23 Sydnie Martinez, RN Personal Advocate & Liaison (PAL) Family Medicine 03/28/23 07/31/23 Alfonso Renteria MD [address] [facility] [address] [place] [address] Assigned Neuroscience Provider 04/02/23 09/29/24 Cheng Todd PA-C [address] [place] [address] [phone] Assigned PCP 04/30/23 07/15/23 Radha Lomeli APRN [facility] HAND [address] [facility] [address] [place] [address] Assigned Heart and Vascular Provider 05/28/23 Jelena David OD [address] [facility] [address] [place] [phone] MD Ophthalmology 06/15/23 Pao Joseph, VJ Personal Advocate & Liaison (PAL) Nurse 08/01/23 11/07/23 Esha Grimm PA-C [address] [place] [phone] Assigned PCP 07/16/23 Valery Veronica PA-C [address] [place] [address] [phone] Physician Tank Truck Operator Dermatology 09/19/23 Rey Tay MD [address] [place] [address] [phone] Gastroenterology 09/20/23 Rocky Zepeda DO [address] [place] [address] 767765 Physician Gastroenterology 09/20/23 Philip Dumont MD [address] [place] [address] 974535 Physician Ophthalmology 09/22/23 Meredith Carrera PA-C [address] [place] [address] Assigned Gastroenterology Provider 11/01/23 Neil Kent MD [address] [place] [address] Dermatology 11/02/23 [place] [address] [place] [address] 285957 Neurological Surgery 12/26/23 Audrey Waite PA-C [address] [place] [address] Physician Tank Truck Operator Dermatology 02/28/24 Valery Veronica PA-C 124032 [address], [place] [address] Physician Tank Truck Operator Dermatology 04/10/24 Herminia Hatch MD [facility]5 [place], [place] [phone] Assigned Rheumatology Provider 07/02/24 Jelena David OD [address] [place] [address] [place] [address] Ophthalmology 08/30/24 [place] [address] [place] [address] Assigned Neuroscience Provider 09/30/24 Maru Man PA-C [address] [place] [address] Physician Tank Truck Operator Dermatology 10/03/24 Maru Man PA-C [address] [place] [address] Physician Tank Truck Operator Dermatology 10/22/24 Jelena David OD [address] [place] [address] [place] [address] Assigned Surgical Provider 10/31/24 documented as of this encounter
--- OUTSIDE RECORDS SUMMARY | 2024-11-21 05:14 | XMS_ITS | Encounter Summary ---
Author Organization [facility] Address [address] [place] [address] Care Team Providers Care Director Call Name Role Phone Rakesh Cid PA-C Primary Care Provider Lita Oseguera Unavailable Unavailable Rakesh Cid PA-C Unavailable [phone] Lita Oseguera Unavailable Unavailable Marija Edgar APRN SENIOR PENSIONS ADMINISTRATOR Primary Care Provider + Chanelle Mccann APRN CNM Unavailab le Lesley Guillermo Unavailable [phone] Kyara De La Fuente RN Unavailable [phone] Marija Edgar APRN SENIOR PENSIONS ADMINISTRATOR Unavailable Mynor Broussard MD Unavailable [phone] Keisha Dotson MD Unavailable [phone] Mary Mejia Unavailable Unavailable Stacey Briones [facility]AMP[facility] RECEPTIONIST Unavailable [phone] Lesley Guillermo Unavailable [phone] Mary Mejia Unavailable Unavailable Lita Oseguera Unavailable Unavailable Galo Burrell MD Unavailable Unavailable Cristina Wood Unavailable Lesley Guillermo Unavailable Meredith Bedoya Unavailable Unavailable Cristina Wood Unavailable Diana Desir [facility] Unavailable [phone] Rain Galaviz PA-C Unavailable Summer Lara MD Unavailable [phone] Summer Lara MD Unavailable [phone] Summer Lara MD Unavailable [phone] Tavia Wyatt MD Unavailable [phone] Johnny Murillo MD Unavailable [phone] Erica Farrell APRN SENIOR PENSIONS ADMINISTRATOR Unavailable Teresita Bean [facility] Unavailable Tavia Wyatt MD Unavailable [phone] Diana Desir [facility] Unavailable [phone] Rich Barrett MD Unavailable Neil Kent MD Unavailable Roney Story DPM Unavailable Erica Farrell APRN SENIOR PENSIONS ADMINISTRATOR Unavailable Diana Desir [facility] Unavailable [phone] Jelena David OD Unavailable [phone] Galo Burrell MD Unavailable Unavailable Livan Sharif MD Unavailable Livan Sharif MD Unavailable + Catherine Cm MD Unavailable + Valery Veronica PA-C Unavailable [phone] Catherine Cm MD Unavailable + Johnny Murillo MD Unavailable [phone] Brea Quinn APRN SENIOR PENSIONS ADMINISTRATOR Unavailable [phone] Brea Quinn ASSISTANT INFANT TODDLER TEACHER SENIOR PENSIONS ADMINISTRATOR Unavailable [phone] Jose Francisco Johnson MD Unavailable Livan Sharif MD Unavailable Catherine Cm MD Unavailable + Sydnie Martinez RN Unavailable Unavailable Alfonso Renteria MD Unavailable [phone] Esha Grimm PA-C Primary Care Provider Cheng Todd PA-C Unavailable [phone] Radha Lomeli ASSISTANT INFANT TODDLER TEACHER SENIOR PENSIONS ADMINISTRATOR Unavailable Jelena David OD Unavailable Pao Joseph RN Unavailable Unavailable Esha Grimm PA-C Unavailable [phone] Valery Veronica PA-C Unavailable Rey Tay [...] Contact Info) Description 04/28/2020 MyC Medical Advice [facility] [id number] [place] [address] [phone] Rakesh Cid PA-C [address] [place] [address] Social History Tobacco Use Types Packs/Day Years [...] PM CDT Legal 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 Gender Identity Female 03/02/2021 5:45 PM [...] Description 11/21/2024 7:00 AM CDT Office Visit [address] [phone] Maru Man PA-C [address] [place] [address] 12/20/2024 2:30 PM CDT Office Visit [address] [phone] Esha Grimm PA-C [address] [place] [phone] 04/16/2025 11:00 AM CDT Virtual Visit [facility] [address] [place] [phone] Meredith Carrera PA-C [address] [place] [address] documented as of this encounter Visit Diagnoses Not on filedocumented in this encounter Additional Health Concerns Infection Onset Date Last Indicated Resolved Time Rule Out COVID-19 07/30/2020 07/30/2020 07/30/2020 7:11 PM MINE CAR REPAIRER Rule Out COVID-19 08/30/2020 08/30/2020 08/30/2020 5:05 PM MINE CAR REPAIRER Rule Out COVID-19 09/24/2020 09/24/2020 09/24/2020 9:24 AM CDT Rule Out COVID-19 11/05/2020 11/05/2020 11/06/2020 1:09 PM CDT Rule Out COVID-19 05/11/2021 05/11/2021 05/13/2021 10:18 AM CDT Rule Out COVID-19 07/13/2021 07/13/2021 07/14/2021 3:04 PM MINE CAR REPAIRER Rule Out COVID-19 07/18/2021 07/18/2021 07/20/2021 1:56 PM MINE CAR REPAIRER COVID-19 07/18/2021 07/18/2021 08/08/2021 11:3 9 PM MINE CAR REPAIRER Rule Out COVID-19 12/18/2021 12/18/2021 12/19/2021 11:34 AM CDT Rule Out COVID-19 02/24/2022 02/24/2022 02/25/2022 1:08 PM CDT Rule Out COVID-19 04/26/2022 04/26/2022 04/26/2022 6:47 AM CDT Rule Out COVID-19 05/17/2022 05/17/2022 05/17/2022 10:20 PM MINE CAR REPAIRER Rule Out COVID-19 06/09/2022 06/09/2022 06/09/2022 9:35 AM MINE CAR REPAIRER COVID-19 06/09/2022 06/09/2022 06/30/2022 11:4 1 PM MINE CAR REPAIRER Rule Out COVID-19 11/10/2022 11/10/2022 11/11/2022 [...] as of this encounter Care Teams Director Call Relationship Specialty Start Date End Date Rakesh Cid PA-C PCP - General Physician [employer] Music Teacher - Medical 05/14/19 04/29/20 Marija Edgar APRN CNP [address] [address] PCP - General Nurse Practitioner 04/30/20 04/14/23 Esha Grimm PA-C [address] [place] [phone] PCP - General Family Medicine 05/04/23 Lita Oseguera Personal Advocate & Liaison (PAL) 02/28/20 03/27/23 Rakesh Cid PA-C [address] [place] [address] Assigned PCP 03/02/20 06/07/20 Lita Oseguera Personal Advocate & Liaison (PAL) 04/07/20 04/29/20 Chanelle Mccann APRN CNM [address] [facility] [address] [place] [address] Assigned OBGYN Provider 05/02/2005/09 Lesley Guillermo, CHW Community Health Worker 05/30/2005/12 Kyara De La Fuente, RN Specialty Access Services Representative Neurology 06/04/20 03/05/21 Marija Edgar APRN SENIOR PENSIONS ADMINISTRATOR [address] [place] [address] Assigned PCP 06/08/20 04/29/23 Mynor Broussard MD [address] [facility] 500 [place] [address] Assigned Surgical Provider 06/01/20 11/28/21 Keisha Dotson MD [address] [place] [address] Assigned Neuroscience Provider 06/04/20 04/01/23 Mary Mejia Financial Resource Worker 08/07/20 08/21/20 Stacey Briones, CAMPUS RECEPTIONIST Lead Access Services Representative Primary Care - CC 08/11/2012/30 Lesley Guillermo CHW Community Health Worker 08/11/2010/01 Mary Mejia Financial Resource Worker 09/02/20 10/06/20 Lita Oseguera Personal Advocate & Liaison (PAL) Family Medicine 09/10/20 09/21/20 Galo Burrell MD Assigned Heart and Vascular Provider 10/05/20 04/02/22 Cristina Wood Financial Resource Worker 10/07/20 10/14/20 Lesley Guillermo, [facility] Community Health Worker 10/23/2012/30 Meredith Bedoya Financial Resource Worker 10/23/20 11/23/20 Cristina Wood Financial Resource Worker 02/09/21 02/09/21 Diana Desir, [facility] [address] [place], [place] [phone] Pharmacist Pharmacist 04/17/21 Rain Galaviz PA-C [address] [place] [address] [address] [place], [place] [phone] Physician Elementary [employer] Music Teacher Dermatology 04/28/21 Summer Lara MD [address] [place], [place] [address] Assigned OBGYN Provider 05/10/2105/23 Summer Lara MD [address] [place] [address] [phone] Assigned OBGYN Provider 05/31/21 2 Summer Lara MD [address] [place] [address] Assigned OBGYN Provider 05/24/2105/30 Tavia Wyatt MD [address] [place] [address] Dermatology 07/14/21 Johnny Murillo MD [address] [place] [address] Assigned Musculoskeletal Provider 08/30/21 03/17/22 Erica Farrell APRN SENIOR PENSIONS ADMINISTRATOR [address] [facility] [address] [place] [address] Nurse Practitioner Cardiovascular Disease 09/09/21 [facility] [address] [place], [place] [phone] Pharmacist Pharmacist 09/24/21 09/29/21 Tavia Wyatt MD [address] [place] [address] Assigned Surgical Provider 11/29/21 05/07/22 [facility] [address] [place] [address] Assigned MTM Pharmacist 01/02/22 Rich Barrett MD [address] [place] [address] Physician Ophthalmology 01/21/22 Neil Kent MD [address] [place] [address] Dermatology 02/24/22 Roney Story DPM [address] [facility] [address] [place] [address] Assigned Musculoskeletal Provider 03/20/22 08/13/22 Erica Farrell APRN SENIOR PENSIONS ADMINISTRATOR [address] [place] [address] Assigned Heart and Vascular Provider 04/03/22 04/16/22 Diana Desir, [facility] [address] [place], [place] 2[address]6 Assigned MTM Pharmacist 04/07/22 Jelena David OD [address] [facility] [address] Assigned Surgical Provider 05/08/22 10/08/22 Galo Burrell MD Assigned Heart and Vascular Provider 04/17/22 06/11/22 Livan Sharif MD [address] [facility] [address] [place] [address] Cardiovascular Disease 05/14/22 Livan Sharif MD [address] [place] [address] Assigned Heart and Vascular Provider 06/12/22 07/23/22 Catherine Cm MD [address] [facility] [address] [place] [phone] Cardiovascular Disease 07/21/22 Valery Veronica, PA-C [address] [place] [address] Physician Elementary School Music Teacher Dermatology 07/21/22 Catherine Cm MD [address] [facility] [address] [facility] [place] [address] Assigned Heart and Vascular Provider 07/24/22 11/05/22 Johnny Murillo MD [address] [place] [address] Assigned Musculoskeletal Provider 08/14/22 10/08/22 Brea Quinn APRN SENIOR PENSIONS ADMINISTRATOR [address] [place] [address] 103235 Nurse Practitioner Dermatology 09/21/22 Brea Quinn APRN SENIOR PENSIONS ADMINISTRATOR [address] [place] [address] [place] 9[address]262 Assigned Surgical Provider 10/09/22 05/01/24 [place] [address] [address] Assigned Musculoskeletal Provider 10/09/22 05/01/24 Livan Sharif MD [address] [facility] [facility] [address] [place] [address] Assigned Heart and Vascular Provider 11/06/22 11/12/22 Catherine Cm MD [address] [facility] [address] [facility] [place] 539355 Assigned Heart and Vascular Provider 11/13/22 05/27/23 Sydnie Martinez, VJ Personal Advocate & Liaison (PAL) Family Medicine 03/28/23 07/31/23 Alfonso Renteria MD [address] [facility] [address] [place] [address] Assigned Neuroscience Provider 04/02/23 09/29/24 Cheng Todd PA-C [address] [place] [address] Assigned PCP 04/30/23 07/15/23 Radha Lomeli APRN SENIOR PENSIONS ADMINISTRATOR [address] [facility] [address] [place] [address] Assigned Heart and Vascular Provider 05/28/23 Jelena David OD [address] [facility] [address] Ophthalmology 06/15/23 Pao Joseph, VJ Personal Advocate & Liaison (PAL) Nurse 08/01/23 11/07/23 Esha Grimm PA-C [address] [place] [phone] Assigned PCP 07/16/23 Valery Veronica PA-C [address] [place], [place] 46[address]15 Physician Elementary School Music Teacher Dermatology 09/19/23 Rey Tay MD [address] [place] [address] 019225 Gastroenterology 09/20/23 Rocky Zepeda DO [address] [place] [address] Physician Gastroenterology 09/20/23 Philip Dumont MD [address] [place] [address] Physician Ophthalmology 09/22/23 Meredith Carrera PA-C [address] [place] [address] Assigned Gastroenterology Provider 11/01/23 Neil Kent MD [address] [place] [address] MD Dermatology 11/02/23 Juan [place] [id number] [place] [address] [facility] [place] [address] Neurological Surgery 12/26/23 Audrey Waite PA-C [address] [place] [address] Physician Elementary [employer] Music Teacher Dermatology 02/28/24 Valery Veronica PA-C 377309 [place] [address] Physician Elementary School Music Teacher Dermatology 04/10/24 Herminia Hatch MD [address] [place] [address] [phone] Assigned Rheumatology Provider 07/02/24 Jelena David OD [address] [place] [address] [place] [address] Ophthalmology 08/30/24 [place] [address] [place] [address] Assigned Neuroscience Provider 09/30/24 Maru Man PA-C [address] [place] [address] Physician Elementary School Music Teacher Dermatology 10/03/24 Maru Man PA-C [address] [place] [address] Physician Elementary School Music Teacher Dermatology 10/22/24 Jelena David OD [address] [facility] [place] [address] Assigned Surgical Provider 10/31/24 documented as of this encounter
--- OUTSIDE RECORDS SUMMARY | 2024-11-21 05:14 | XMS_ITS | Encounter Summary ---
Author Organization [facility] Address [address] [place] [address] Care Team Providers Care Pv Design Engineer Name Role Phone Lita Oseguera Unavailable Unavailable Marija Edgar APRN MARRIAGE THERAPIST Primary Care Provider + Chanelle Mccann APRN CNM Unavailab le Kyara De La Fuente RN Unavailable [phone] Marija Edgar APRN MARRIAGE THERAPIST Unavailable Mynor Broussard MD Unavailable [phone] Keisha Dotson MD Unavailable [phone] Mary Mejia Unavailable Unavailable Stacey Briones ELEMENT WINDING MACHINE TENDER Unavailable [phone] Lesley Guillermo CHW Unavailable Mary Mejia Unavailable Unavailable Lita Oseguera Unavailable Unavailable Galo Burrell MD Unavailable Unavailable Cristina Wood Unavailable Lesley Guillermo CHW Unavailable Meredith Bedoya Unavailable Unavailable Cristina Wood Unavailable Diana Desir [facility] Unavailable [phone] Ruhland, Rain Lena PA-C Unavailable Summer Lara MD Unavailable [phone] Summer Lara MD Unavailable [phone] Summer Lara MD Unavailable [phone] Tavia Wyatt MD Unavailable [phone] Johnny Murillo MD Unavailable [phone] Erica Farrell APRN MARRIAGE THERAPIST Unavailable VikasTeresita H Unavailable Tavia Wyatt MD Unavailable [phone] Diana Desir [facility] Unavailable [phone] Rich Barrett MD Unavailable [phone] Neil Kent MD Unavailable Roney Story [facility] Unavailable Erica Farrell APRN MARRIAGE THERAPIST Unavailable Diana Desir [facility] Unavailable [phone] Jelena David OD Unavailable Galo Burrell MD Unavailable Unavailable Livan Sharif MD Unavailable Livan Sharif MD Unavailable Catherine Cm MD Unavailable + Valery Veronica PA-C Unavailable [phone] Catherine Cm MD Unavailable + Johnny Murillo MD Unavailable +[phone] Brea Quinn APRN MARRIAGE THERAPIST Unavailable [phone] Brea Quinn TURBINATED BONE GRINDER MARRIAGE THERAPIST Unavailable [phone] Jose Francisco Johnson MD Unavailable Livan Sharif MD Unavailable Catherine Cm MD Unavailable + Sydnie Martinez RN Unavailable Unavailable Alfonso Renteria MD Unavailable [phone] Esha Grimm PA-C Primary Care Provider Cheng Todd PA-C Unavailable Radha Lomeli APRN MARRIAGE THERAPIST Unavailable Jelena David OD Unavailable Pao Joseph RN Unavailable Unavailable Esha Grimm PA-C Unavailable [phone] Valery Veronica PA-C Unavailable Rey Tay [...] Team (Late st Contact Info) Description 07/10/2020 [facility] [address] [place] [phone] Mynor Broussard MD [address] [place] [phone] Social History Tobacco Use Types Packs/Day Years [...] PM CDT Legal Sex Female 4:13 AM AUTOCUTTER Gender Identity Female 03/02/2021 5:45 PM CDT Sexual Orientation Straight 02/28/2020 12 :51 AM CDT COVID-19 Exposure Response Date Recorded In the last month, have you been in contact with someone who was confirmed or suspected to have Coronavirus / COVID-19? No / Unsure 06/24/2020 3:01 PM AUTOCUTTER documented as of this encounter Plan of Treatment Upcoming Encounters Date Type Department Care Team (Late st Contact Info) Description 11/21/2024 7:00 AM CDT Office Visit [address] [phone] Maru Man PA-C [address] [place] [address] 12/20/2024 2:30 PM CDT Office Visit [facility] [address] [place] [phone] Esha Grimm PA-C [id number] [place] [phone] 04/16/2025 11:00 AM CDT Virtual Visit [facility] Gastroenterology [address] [phone] Meredith Carrera PA-C [address] [place] [address] documented as of this encounter Visit Diagnoses Not on filedocumented in this encounter Additional Health Concerns Infection Onset Date Last Indicated Resolved Time Rule Out COVID-19 07/30/2020 07/30/2020 07/30/2020 7:11 PM AUTOCUTTER Rule Out COVID-19 08/30/2020 08/30/2020 08/30/2020 5:05 PM AUTOCUTTER Rule Out COVID-19 09/24/2020 09/24/2020 09/24/2020 9:24 AM CDT Rule Out COVID-19 11/05/2020 11/05/2020 11/06/2020 1:09 PM CDT Rule Out COVID-19 05/11/2021 05/11/2021 05/13/2021 10:18 AM CDT Rule Out COVID-19 07/13/2021 07/13/2021 07/14/2021 3:04 PM AUTOCUTTER Rule Out COVID-19 07/18/2021 07/18/2021 07/20/2021 1:56 PM AUTOCUTTER COVID-19 07/18/2021 07/18/2021 08/08/2021 11:3 9 PM AUTOCUTTER Rule Out COVID-19 12/18/2021 12/18/2021 12/19/2021 11:34 AM CDT Rule Out COVID-19 02/24/2022 02/24/2022 02/25/2022 1:08 PM CDT Rule Out COVID-19 04/26/2022 04/26/2022 04/26/2022 6:47 AM CDT Rule Out COVID-19 05/17/2022 05/17/2022 05/17/2022 10:20 PM AUTOCUTTER Rule Out COVID-19 06/09/2022 06/09/2022 06/09/2022 9:35 AM AUTOCUTTER COVID-19 06/09/2022 06/09/2022 06/30/2022 11:4 1 PM AUTOCUTTER Rule Out COVID-19 11/10/2022 11/10/2022 11/11/2022 12:17 PM CDT Rule Out COVID-19 03/07/2023 03/07/2023 03/07/2023 1:20 PM CDT Rule Out COVID-19 12/26/2023 12/26/2023 12/26/2023 9:50 AM CDT Rule Out COVID-19 04/09/2024 04/09/2024 04/10/2024 6:48 PM CDT Rule Out COVID-19 10/04/2024 10/04/2024 10/05/2024 9:42 AM CDT Rule Out COVID-19 11/20/2024 11/20/2024 Assessment Noted Time PHQ-9 Depression Total Score: 9 06/25/20 7:04 AM AUTOCUTTER documented as of this encounter Care Teams Pv Design Engineer Relationship Specialty Start Date End Date Marija Edgar APRN MARRIAGE THERAPIST PCP - General Nurse Practitioner 04/30/20 04/14/23 Esha Grimm PA-C [address] [place] [phone] PCP - General Family Medicine 05/04/23 Lita Oseguera Personal Advocate & Liaison (PAL) 02/28/20 03/27/23 Chanelle Mccann APRN CNM [address] [place] [address] Assigned OBGYN Provider 05/02/2005/09 Kyara De La Fuente, RN Specialty Hydraulic Barker Operator Neurology 06/04/20 03/05/21 Marija Edgar APRN MARRIAGE THERAPIST Assigned PCP 06/08/20 04/29/23 Mynor Broussard MD [address] [facility] [address] [place], [place] [phone] Assigned Surgical Provider 06/01/20 11/28/21 Keisha Dotson MD [address] [place], [place] [address] Assigned Neuroscience Provider 06/04/20 04/01/23 Mary Mejia Financial Resource Worker 08/07/20 08/21/20 Stacey Briones, [facility] Lead Hydraulic Barker Operator Primary Care - CC 08/11/2012/30 Lesley [...] Diana Desir, [facility] [address] [place] [address] Pharmacist Pharmacist 04/17/21 Rain Galaviz PA-C [address] [place] [address] [facility] [place] [address] Physician Grain Manager Dermatology 04/28/21 Summer Lara MD [address] [facility] [place] [address] Assigned OBGYN Provider 05/10/2105/23 Summer Lara MD [address] [place] [address] Assigned OBGYN Provider 05/31/21 2 Summer Lara MD [address] [facility] [place] [place] [address] Assigned OBGYN Provider 05/24/2105/30 Tavia Wyatt MD [address] [facility] [place] [address] Dermatology 07/14/21 Johnny Murillo MD [address] [place] [address] Assigned Musculoskeletal Provider 08/30/21 03/17/22 Erica Farrell APRN MARRIAGE THERAPIST [address] [facility] [address] [place] [address] Nurse Practitioner Cardiovascular Disease 09/09/21 Teresita Bean, [facility] [address] [place] [address] Pharmacist Pharmacist 09/24/21 09/29/21 Tavia Wyatt MD [address] [place] [address] Assigned Surgical Provider 11/29/21 05/07/22 Diana Desir, [facility] [address] [place] [address] Assigned MTM Pharmacist 01/02/22 Rich Barrett MD [address] [place] [address] Physician Ophthalmology 01/21/22 Neil Kent MD [address] [place] [address] Dermatology 02/24/22 Roney Story DPM [address] [facility] [address] [place] [address] Assigned Musculoskeletal Provider 03/20/22 08/13/22 Erica Farrell APRN MARRIAGE THERAPIST [address] [place] [address] Assigned Heart and Vascular Provider 04/03/22 04/16/22 Diana Desir, [facility] [address] [place] [address] Assigned MTM Pharmacist 04/07/22 Jelena David OD [address] [place] [address] [place] [address] Assigned Surgical Provider 05/08/22 10/08/22 Galo Burrell MD Assigned Heart and Vascular Provider 04/17/22 06/11/22 Livan Sharif MD [address] [place] [id number] Cardiovascular Disease 05/14/22 Livan Sharif MD [address] [place] 816695 Assigned Heart and Vascular Provider 06/12/22 07/23/22 Catherine Cm MD [address] [facility] 872155 Cardiovascular Disease 07/21/22 Valery Veronica PA-C [address] [place] [address] 050795 Physician Grain Manager Dermatology 07/21/22 Catherine Cm MD [address] [place] [address] [id number] Assigned Heart and Vascular Provider 07/24/22 11/05/22 Johnny Murillo MD [address] [place] [address] [phone] Assigned Musculoskeletal Provider 08/14/22 10/08/22 Brea Quinn APRN MARRIAGE THERAPIST [address] [place] [address] 962145 Nurse Practitioner Dermatology 09/21/22 Brea Quinn APRN MARRIAGE THERAPIST [address] [place] [address] [place] 010092 Assigned Surgical Provider 10/09/22 05/01/24 [place] [address] [place] [address] Assigned Musculoskeletal Provider 10/09/22 05/01/24 Livan Sharif MD [address] [place] [address] Assigned Heart and Vascular Provider 11/06/22 11/12/22 Catherine Cm MD [address] [place] [address] Assigned Heart and Vascular Provider 11/13/22 05/27/23 Sydnie Martinez RN Personal Advocate & Liaison (PAL) Family Medicine 03/28/23 07/31/23 Alfonso Renteria MD [address] [facility] [address] [place] [address] Assigned Neuroscience Provider 04/02/23 09/29/24 Cheng Todd PA-C [address] [place] [address] Assigned PCP 04/30/23 07/15/23 Radha Lomeli APRN MARRIAGE THERAPIST [address] [place] [address] Assigned Heart and Vascular Provider 05/28/23 Jelena David OD [address] [facility] [place] [address] MD Ophthalmology 06/15/23 Pao Joseph, RN Personal Advocate & Liaison (PAL) Nurse 08/01/23 11/07/23 Esha Grimm PA-C [address] [place] [phone] Assigned PCP 07/16/23 Valery Veronica PA-C [address] [place] [address] 259645 Physician Grain Manager Dermatology 09/19/23 Rey Tay MD [address] [place] [address] [id number] MD Gastroenterology 09/20/23 Rocky Zepeda DO [address] [place] [address] 586405 Physician Gastroenterology 09/20/23 Philip Dumont MD [address] [place] [address] 748245 Physician Ophthalmology 09/22/23 Meredith Carrera PA-C [address] [place] [address] 413635 Assigned Gastroenterology Provider 11/01/23 Neil Kent MD [address] [place] [address] 191360 Dermatology 11/02/23 [place] [address] [place] [address] Neurological Surgery 12/26/23 Audrey Waite PA-C [address] [place] [address] Physician Grain Manager Dermatology 02/28/24 Valery Veronica PA-C [address] [place] [address] Physician Grain Manager Dermatology 04/10/24 Herminia Hatch MD [address] [place] [address] Assigned Rheumatology Provider 07/02/24 Jelena David OD [address] [place] [address] [place] [address] Ophthalmology 08/30/24 [place] [address] [place] [address] Assigned Neuroscience Provider 09/30/24 Maru Man PA-C [address] [place] [address] Physician Grain Manager Dermatology 10/03/24 Maru Man PA-C [address] [place] [address] Physician Grain Manager Dermatology 10/22/24 Jelena David OD [address] [place] [address] [place] [address] Assigned Surgical Provider 10/31/24 documented as of this encounter
--- OUTSIDE RECORDS SUMMARY | 2024-11-21 05:14 | XMS_ITS | Encounter Summary ---
Author Organization [facility] Address [address] [place] [address] Care Team Providers Care Soda Column Operator Name Role Phone Lita Oseguera Unavailable Unavailable Rakesh Cid PA-C Unavailable Marija Edgar APRN SEPARATOR INSERTER Primary Care Provider + Chanelle Mccann APRN CN Unavailab le Lesley Guillermo CHW Unavailable [phone] Kyara De La Fuente RN Unavailable [phone] Marija Edgar APRN [facility] Unavailable [phone] Mynor Broussard MD Unavailable [phone] Keisha Dotson MD Unavailable Mary Mejia Unavailable Unavailable Stacey Briones COLLEGE SPORTS ASSISTANT Unavailable [phone] Lesley Guillermo CHW Unavailable [phone] Mary Mejia Unavailable Unavailable Lita Oseguera Unavailable Unavailable Galo Burrell MD Unavailable Unavailable Cristina Wood Unavailable Lesley Guillermo CHW Unavailable [phone] Meredith Bedoya Unavailable Unavailable Cristina Wood Unavailable Diana Desir [facility] Unavailable [phone] Rain Galaviz PA-C Unavailable Summer Lara MD Unavailable [phone] Summer Lara MD Unavailable [phone] Summer Lara MD Unavailable [phone] Tavia Wyatt MD Unavailable [phone] Johnny Murillo MD Unavailable [phone] Erica Farrell APRN SEPARATOR INSERTER Unavailable Teresita Bean [facility] Unavailable Tavia Wyatt MD Unavailable [phone] Diana Desir [facility] Unavailable [phone] Rich Barrett MD Unavailable Neil Kent MD Unavailable Roney StoryM Unavailable Erica Farrell APRN SEPARATOR INSERTER Unavailable + Diana Desir [facility] Unavailable [phone] Jelena David OD Unavailable Galo Burrell MD Unavailable Unavailable Livan Sharif MD Unavailable Livan Sharif MD Unavailable + Catherine Cm MD Unavailable + Valery Veronica PA-C Unavailable [phone] Catherine Cm MD Unavailable + Johnny Murillo MD Unavailable [phone] Brea Quinn APRN SEPARATOR INSERTER Unavailable [phone] [place], Brea P DROPHAMMER OPERATOR SEPARATOR INSERTER Unavailable [phone] Jose Francisco Johnson MD Unavailable Livan Sharif MD Unavailable Catherine Cm MD Unavailable + Sydnie Martinez RN Unavailable Unavailable Alfonso Renteria MD Unavailable Esha Grimm PA-C Primary Care Provider Cheng Todd PA-C Unavailable Armani Radha Sia DROPHAMMER OPERATOR SEPARATOR INSERTER Unavailable [phone] Jelena David OD Unavailable [phone] Pao Joseph RN Unavailable Unavailable Esha Grimm PA-C Unavailable Valery Veronica PA-C Unavailable Rey Tay MD Unavailable Rocky Zepeda DO Unavailable Philip Dumont MD Unavailable [phone] Meredith Carrera PA-C Unavailable [phone] Neil Kent MD Unavailable Juan Pablo Emmanuel MD Unavailable [phone] Audrey Waite PA-C Unavailable Valery Veronica PA-C Unavailable Herminia Hatch MD Unavailable Jelena David OD Unavailable [phone] Juan Pablo Emmanuel MD Unavailable Maru Man PA-C Unavailable [phone] Maru Man PA-C Unavailable [phone] Jelena David OD Unavailable Encounter Details Date Type Department Care Team (Late st Contact Info) Description 05/16/2020 MyC Medical Advice [address] [phone] Jerome Ferrell RN Social History [...] CDT Legal Sex Female 4:13 AM SYSTEMS DEVELOPMENT CONSULTANT Gender Identity Female 03/02/2021 5:45 PM CDT Sexual Orientation Straight 02/28/2020 12 :51 AM CDT COVID-19 Exposure Response Date Recorded In the last month, have you been in contact with someone who was confirmed or suspected to have Coronavirus / COVID-19? No / Unsure 05/12/2020 9:03 AM SYSTEMS DEVELOPMENT CONSULTANT documented as of this encounter Plan of Treatment Upcoming Encounters Date Type Department Care Team (Late st Contact Info) Description 11/21/2024 7:00 AM CDT Office Visit [facility] [address] [phone] Maru Man PA-C [address] [place] [address] 12/20/2024 2:30 PM CDT Office Visit [facility] [id number] [place] [phone] Esha Grimm PA-C [id number] [place] [phone] 04/16/2025 11:00 AM CDT Virtual Visit [facility] [address] [phone] Meredith Carrera PA-C [address] [place] [address] documented as of this encounter Visit Diagnoses Not on filedocumented in this encounter Additional Health Concerns Infection Onset Date Last Indicated Resolved Time Rule Out COVID-19 07/30/2020 07/30/2020 07/30/2020 7:11 PM SYSTEMS DEVELOPMENT CONSULTANT Rule Out COVID-19 08/30/2020 08/30/2020 08/30/2020 5:05 PM SYSTEMS DEVELOPMENT CONSULTANT Rule Out COVID-19 09/24/2020 09/24/2020 09/24/2020 9:24 AM CDT Rule Out COVID-19 11/05/2020 11/05/2020 11/06/2020 1:09 PM CDT Rule Out COVID-19 05/11/2021 05/11/2021 05/13/2021 10:18 AM CDT Rule Out COVID-19 07/13/2021 07/13/2021 07/14/2021 3:04 PM SYSTEMS DEVELOPMENT CONSULTANT Rule Out COVID-19 07/18/2021 07/18/2021 07/20/2021 1:56 PM SYSTEMS DEVELOPMENT CONSULTANT COVID-19 07/18/2021 07/18/2021 08/08/2021 11:3 9 PM SYSTEMS DEVELOPMENT CONSULTANT Rule Out COVID-19 12/18/2021 12/18/2021 12/19/2021 11:34 AM CDT Rule Out COVID-19 02/24/2022 02/24/2022 02/25/2022 1:08 PM CDT Rule Out COVID-19 04/26/2022 04/26/2022 04/26/2022 6:47 AM CDT Rule Out COVID-19 05/17/2022 05/17/2022 05/17/2022 10:20 PM SYSTEMS DEVELOPMENT CONSULTANT Rule Out COVID-19 06/09/2022 06/09/2022 06/09/2022 9:35 AM SYSTEMS DEVELOPMENT CONSULTANT COVID-19 06/09/2022 06/09/2022 06/30/2022 11:4 1 PM SYSTEMS DEVELOPMENT CONSULTANT Rule Out COVID-19 11/10/2022 11/10/2022 11/11/2022 [...] documented as of this encounter Care Teams Soda Column Operator Relationship Specialty Start Date End Date Marija Edgar APRN SEPARATOR INSERTER [address] [place] [address] PCP - General Nurse Practitioner 04/30/20 04/14/23 Esha Grimm PA-C [address] [place] [phone] PCP - General Family Medicine 05/04/23 Lita Oseguera Personal Advocate & Liaison (PAL) 02/28/20 03/27/23 Rakesh Cid PA-C [address] [place] [address] Assigned PCP 03/02/20 06/07/20 Chanelle Mccann APRN CNM [address] [address] Assigned OBGYN Provider 05/02/2005/09 Lesley Guillermo, CHW Community Health Worker 05/30/2005/12 Kyara De La Fuente, RN Specialty Skip Loader Neurology 06/04/20 03/05/21 Marija Edgar APRN CNP [address] [place] [address] Assigned PCP 06/08/20 04/29/23 Mynor Broussard MD [address] [place] [address] Assigned Surgical Provider 06/01/20 11/28/21 Keisha Dotson MD [address] [place] [address] Assigned Neuroscience Provider 06/04/20 04/01/23 Mary Mejia Financial Resource Worker 08/07/20 08/21/20 Stacey Briones, [facility] Lead Skip Loader Primary Care - CC 08/11/2012/30 Lesley Guillermo, [...] 02/09/21 Diana Desir, [facility] [address] [facility] [place] [address] Pharmacist Pharmacist 04/17/21 Rain Galaviz PA-C [address] [place] [address] [place] [address] Physician Mac Developer Dermatology 04/28/21 Summer Lara MD [address] [place] [address] Assigned OBGYN Provider 05/10/2105/23 Summer Lara MD [address] [place], [place] [address] Assigned OBGYN Provider 05/31/21 Summer Lara MD [address] [place], [place] [address] Assigned OBGYN Provider 05/24/2105/30 Tavia Wyatt MD [address] [place], [place] [address] Dermatology 07/14/21 Johnny Murillo MD [address] [place] [address] Assigned Musculoskeletal Provider 08/30/21 03/17/22 Erica Farrell APRN SEPARATOR INSERTER [address] [facility] [address] [place] [address] Nurse Practitioner Cardiovascular Disease 09/09/21 Teresita Bean [facility] [address] [facility] [place] [address] Pharmacist Pharmacist 09/24/21 09/29/21 Tavia Wyatt MD [address] [place] [address] Assigned Surgical Provider 11/29/21 05/07/22 Diana Desir, [facility] [address] [place] [address] Assigned MTM Pharmacist 01/02/22 Rich Barrett MD [address] [place] [address] Physician Ophthalmology 01/21/22 Neil Kent MD [address] [place] [address] Dermatology 02/24/22 Roney Story DPM [address] [facility] [address] [place] [address] Assigned Musculoskeletal Provider 03/20/22 08/13/22 Erica Farrell APRN SEPARATOR INSERTER [address] [place] [address] Assigned Heart and Vascular Provider 04/03/22 04/16/22 Diana Desir, [facility] [address] [place] [address] Assigned MTM Pharmacist 04/07/22 Jelena David OD [address] [facility] [place] [address] Assigned Surgical Provider 05/08/22 10/08/22 Galo Burrell MD Assigned Heart and Vascular Provider 04/17/22 06/11/22 Livan Sharif MD [address] [place] [address] Cardiovascular Disease 05/14/22 Livan Sharif MD [address] [place] [address] Assigned Heart and Vascular Provider 06/12/22 07/23/22 Catherine Cm MD [address] [place] [address] Cardiovascular Disease 07/21/22 Valery Veronica, PA-C [address] [place], [place] [address] Physician Mac Developer Dermatology 07/21/22 Catherine Cm MD [address] [place] [address] Assigned Heart and Vascular Provider 07/24/22 11/05/22 Johnny Murillo MD [address] [place] [address] [id number] Assigned Musculoskeletal Provider 08/14/22 10/08/22 Brea Quinn APRN SEPARATOR INSERTER [address] [place] [address] Nurse Practitioner Dermatology 09/21/22 Brea Quinn APRN SEPARATOR INSERTER [address] [place] [address] Assigned Surgical Provider 10/09/22 05/01/24 [place] [address] [facility] [address] [place] [address] Assigned Musculoskeletal Provider 10/09/22 05/01/24 Livan Sharif MD [address] [facility] [address] [place] [address] Assigned Heart and Vascular Provider 11/06/22 11/12/22 Catherine Cm MD [address] [facility] [address] [place] [address] Assigned Heart and Vascular Provider 11/13/22 05/27/23 Sydnie Martinez RN Personal Advocate & Liaison (PAL) Family Medicine 03/28/23 07/31/23 Alfonso Renteria MD [address] [facility] 200 [place], [place] [address] Assigned Neuroscience Provider 04/02/23 09/29/24 Cheng Todd PA-C [address] [place] [address] [phone] Assigned PCP 04/30/23 07/15/23 Radha Lomeli APRN SEPARATOR INSERTER [address] [facility] [address] [place] [address] Assigned Heart and Vascular Provider 05/28/23 Jelena David OD [address] [facility] [place] [address] MD Ophthalmology 06/15/23 Pao Joseph, VJ Personal Advocate & Liaison (PAL) Nurse 08/01/23 11/07/23 Esha Grimm PA-C [address] [place] [phone] Assigned PCP 07/16/23 Valery Veronica PA-C [address] [place] [address] [phone] Physician Mac Developer Dermatology 09/19/23 Rey Tay MD [address] [place] [address] 215025 Gastroenterology 09/20/23 Rocky Zepeda DO [address] [place] [address] 699475 Physician Gastroenterology 09/20/23 Philip Dumont MD [address] [place] [address] 033205 Physician Ophthalmology 09/22/23 Meredith Carrera PA-C [address] [place] [address] [phone] Assigned Gastroenterology Provider 11/01/23 Neil Kent MD [address] [place] [address] MD Dermatology 11/02/23 [place] [address] [place] [address] [place] [address] Neurological Surgery 12/26/23 Audrey Waite PA-C [address] [place] [address] Physician Mac Developer Dermatology 02/28/24 Valery Veronica PA-C [address] [place] [address] Physician Mac Developer Dermatology 04/10/24 Herminia Hatch MD [address] [place] [address] [id number] Assigned Rheumatology Provider 07/02/24 Jelena David OD [address] [place] [address] [place] [address] Ophthalmology 08/30/24 [place] [address] [place] [address] [place] [address] Assigned Neuroscience Provider 09/30/24 Maru Man PA-C [address] [place] [address] Physician Mac Developer Dermatology 10/03/24 Maru Man PA-C [address] [place] [address] Physician Mac Developer Dermatology 10/22/24 Jelena David OD [address] [facility] [place] [address] Assigned Surgical Provider 10/31/24 documented as of this encounter
--- OUTSIDE RECORDS SUMMARY | 2024-11-21 05:14 | XMS_ITS | Encounter Summary ---
Author Organization [facility] Address [address] [place] [address] Care Team Providers Care Cylinder Die Machine Operator Name Role Phone Rakesh Cid PA-C Primary Care Provider Lita Oseguera Unavailable Unavailable Rakesh Cid PA-C Unavailable [phone] Lita Oseguera Unavailable Unavailable Marija Edgar APRN AUDIOVISUAL EQUIPMENT OPERATOR Primary Care Provider + Chanelle Mccann APRN CNM Unavailab le Lesley Guillermo Unavailable [phone] Kyara De La Fuente RN Unavailable [phone] Marija Edgar APRN AUDIOVISUAL EQUIPMENT OPERATOR Unavailable Mynor Broussard MD Unavailable [phone] Keisha Dotson MD Unavailable [phone] Mary Mejia Unavailable Unavailable Stacey Briones MUCK FARMER Unavailable Lesley Guillermo Unavailable [phone] Mary Mejia Unavailable Unavailable Lita Oseguera Unavailable Unavailable Galo Burrell MD Unavailable Unavailable Cristina Wood Unavailable Lesley Guillermo Unavailable Meredith Bedoya Unavailable Unavailable Cristina Wood Unavailable Diana Desir [facility] Unavailable [phone] Rain Galaviz PA-C Unavailable Summer Lara MD Unavailable [phone] Summer Lara MD Unavailable [phone] Summer Lara MD Unavailable [phone] Tavia Wyatt MD Unavailable [phone] Johnny Murillo MD Unavailable [phone] Erica Farrell APRN AUDIOVISUAL EQUIPMENT OPERATOR Unavailable Teresita Bean [facility] Unavailable Tavia Wyatt MD Unavailable [phone] Diana Desir [facility] Unavailable [phone] Rich Barrett MD Unavailable Neil Kent MD Unavailable Roney Story DPM Unavailable Erica Farrell APRN AUDIOVISUAL EQUIPMENT OPERATOR Unavailable Diana Desir [facility] Unavailable [phone] Jelena David OD Unavailable Galo Burrell MD Unavailable Unavailable Livan Sharif MD Unavailable Livan Sharif MD Unavailable + Catherine Cm MD Unavailable + Valery Veronica PA-C Unavailable [phone] Catherine Cm MD Unavailable + Johnny Murillo MD Unavailable [phone] Brea Quinn APRN AUDIOVISUAL EQUIPMENT OPERATOR Unavailable [phone] Brea Quinn DOUBLE CORNER CUTTER AUDIOVISUAL EQUIPMENT OPERATOR Unavailable [phone] Jose Francisco Johnson MD Unavailable Livan Sharif MD Unavailable Catherine Cm MD Unavailable + Sydnie Martinez RN Unavailable Unavailable Alfonso Renteria MD Unavailable [phone] Esha Grimm PA-C Primary Care Provider Cheng Todd PA-C Unavailable [phone] Radha Lomeli DOUBLE CORNER CUTTER AUDIOVISUAL EQUIPMENT OPERATOR Unavailable Jelena David OD Unavailable Pao Joseph RN Unavailable Unavailable Esha Grimm PA-C Unavailable [phone] Valery Veronica PA-C Unavailable Rey Tay [...] Contact Info) Description 04/25/2020 MyC Medical Advice [facility] [id number] [place] [address] [phone] Rakesh Cid PA-C [address] [place] [address] Social History Tobacco Use Types Packs/Day Years [...] PM CDT Legal Sex Female 4:13 AM JANITOR HELPER Gender Identity Female 03/02/2021 5:45 PM [...] Description 11/21/2024 7:00 AM CDT Office Visit [address] [phone] Maru Man PA-C [address] [place] [address] 12/20/2024 2:30 PM CDT Office Visit [address] [phone] Esha Grimm PA-C [address] [place] [phone] 04/16/2025 11:00 AM CDT Virtual Visit [facility] [address] 4[address] [place] [phone] Meredith Carrera PA-C [address] [place] [address] documented as of this encounter Visit Diagnoses Not on filedocumented in this encounter Additional Health Concerns Infection Onset Date Last Indicated Resolved Time Rule Out COVID-19 07/30/2020 07/30/2020 07/30/2020 7:11 PM JANITOR HELPER Rule Out COVID-19 08/30/2020 08/30/2020 08/30/2020 5:05 PM JANITOR HELPER Rule Out COVID-19 09/24/2020 09/24/2020 09/24/2020 9:24 AM CDT Rule Out COVID-19 11/05/2020 11/05/2020 11/06/2020 1:09 PM CDT Rule Out COVID-19 05/11/2021 05/11/2021 05/13/2021 10:18 AM CDT Rule Out COVID-19 07/13/2021 07/13/2021 07/14/2021 3:04 PM JANITOR HELPER Rule Out COVID-19 07/18/2021 07/18/2021 07/20/2021 1:56 PM JANITOR HELPER COVID-19 07/18/2021 07/18/2021 08/08/2021 11:3 9 PM JANITOR HELPER Rule Out COVID-19 12/18/2021 12/18/2021 12/19/2021 11:34 AM CDT Rule Out COVID-19 02/24/2022 02/24/2022 02/25/2022 1:08 PM CDT Rule Out COVID-19 04/26/2022 04/26/2022 04/26/2022 6:47 AM CDT Rule Out COVID-19 05/17/2022 05/17/2022 05/17/2022 10:20 PM JANITOR HELPER Rule Out COVID-19 06/09/2022 06/09/2022 06/09/2022 9:35 AM JANITOR HELPER COVID-19 06/09/2022 06/09/2022 06/30/2022 11:4 1 PM JANITOR HELPER Rule Out COVID-19 11/10/2022 11/10/2022 11/11/2022 [...] documented as of this encounter Care Teams Cylinder Die Machine Operator Relationship Specialty Start Date End Date Rakesh Cid PA-C PCP - General Physician Pallet Stone Positioner - Medical 05/14/19 04/29/20 Marija Edgar APRN CNP [address] [address] PCP - General Nurse Practitioner 04/30/20 04/14/23 Esha Grimm PA-C [address] [place] [phone] PCP - General Family Medicine 05/04/23 Lita Oseguera Personal Advocate & Liaison (PAL) 02/28/20 03/27/23 Rakesh Cid PA-C [address] [place] [address] Assigned PCP 03/02/20 06/07/20 Lita Oseguera Personal Advocate & Liaison (PAL) 04/07/20 04/29/20 Chanelle Mccann APRN CNM [address] [facility] [address] [place] [address] Assigned OBGYN Provider 05/02/2005/09 Lesley Guillermo, CHW Community Health Worker 05/30/2005/12 Kyara De La Fuente, RN Specialty Community Development Coordinator Neurology 06/04/20 03/05/21 Marija Edgar APRN AUDIOVISUAL EQUIPMENT OPERATOR [address] [place] [address] Assigned PCP 06/08/20 04/29/23 Mynor Broussard MD [address] [facility] 500 [place] [address] Assigned Surgical Provider 06/01/20 11/28/21 Keisha Dotson MD [address] [place] [address] Assigned Neuroscience Provider 06/04/20 04/01/23 Mary Mejia Financial Resource Worker 08/07/20 08/21/20 Stacey Briones, MUCK FARMER Lead Community Development Coordinator Primary Care - CC 08/11/2012/30 Lesley Guillermo CHW Community Health Worker 08/11/2010/01 Mary Mejia Financial Resource Worker 09/02/20 10/06/20 Lita Oseguera Personal Advocate & Liaison (PAL) Family Medicine 09/10/20 09/21/20 Galo Burrell MD Assigned Heart and Vascular Provider 10/05/20 04/02/22 Cristina Wood Financial Resource Worker 10/07/20 10/14/20 Lesley Guillermo, [facility] Community Health Worker 10/23/2012/30 Meredith Bedoya Financial Resource Worker 10/23/20 11/23/20 Cristina Wood Financial Resource Worker 02/09/21 02/09/21 Diana Desir, [facility] [address] [place], [place] [address] Pharmacist Pharmacist 04/17/21 Rain Galaviz PA-C [address] [place] [address] [address] [place], [place] [phone] Physician Pallet Stone Positioner Dermatology 04/28/21 Summer Lara MD [facility] [place] [place] [address] Assigned OBGYN Provider 05/10/2105/23 Summer Lara MD [address] [place] [address] [id number] Assigned OBGYN Provider 05/31/21 2 Summer Lara MD [address] [place] [address] Assigned OBGYN Provider 05/24/2105/30 Tavia Wyatt MD [address] [place] [address] Dermatology 07/14/21 Johnny Murillo MD [address] [place] [address] Assigned Musculoskeletal Provider 08/30/21 03/17/22 Erica Farrell APRN AUDIOVISUAL EQUIPMENT OPERATOR [address] [facility] [address] [place] [address] Nurse Practitioner Cardiovascular Disease 09/09/21 [facility] [address] [facility] [address] [place], [place] [phone] Pharmacist Pharmacist 09/24/21 09/29/21 Tavia Wyatt MD [address] [place] [address] Assigned Surgical Provider 11/29/21 05/07/22 [facility] [address] [place] [address] Assigned MTM Pharmacist 01/02/22 Rich Barrett MD [address] [place] [address] Physician Ophthalmology 01/21/22 Neil Kent MD [address] [place] [address] Dermatology 02/24/22 Roney Story DPM [address] [facility] [address] [place] [address] Assigned Musculoskeletal Provider 03/20/22 08/13/22 Erica Farrell APRN AUDIOVISUAL EQUIPMENT OPERATOR [address] [place] [address] Assigned Heart and Vascular Provider 04/03/22 04/16/22 Diana Desir, [facility] [address] [place], [place] 736[address] Assigned MTM Pharmacist 04/07/22 [place] David [place] [address] [facility] [place] [address] Assigned Surgical Provider 05/08/22 10/08/22 Galo Burrell MD Assigned Heart and Vascular Provider 04/17/22 06/11/22 Livan Sharif MD [address] [facility] [address] [place] [address] Cardiovascular Disease 05/14/22 Livan Sharif MD [address] [place] [address] Assigned Heart and Vascular Provider 06/12/22 07/23/22 Catherine Cm MD [address] [facility] [address] [place] [phone] Cardiovascular Disease 07/21/22 Valery Veronica, PA-C [address] [place] [address] Physician Pallet Stone Positioner Dermatology 07/21/22 Catherine Cm MD [address] [facility]00 [place] [address] Assigned Heart and Vascular Provider 07/24/22 11/05/22 Johnny Murillo MD [address] [place] [address] Assigned Musculoskeletal Provider 08/14/22 10/08/22 Brea Quinn APRN AUDIOVISUAL EQUIPMENT OPERATOR [address] [place] [address] [phone] Nurse Practitioner Dermatology 09/21/22 Brea Quinn APRN AUDIOVISUAL EQUIPMENT OPERATOR [address] [place] [address] [place] 360542 Assigned Surgical Provider 10/09/22 05/01/24 [place] [address] [address] Assigned Musculoskeletal Provider 10/09/22 05/01/24 Livan Sharif MD [address] [facility] [facility] [address] [place] [address] Assigned Heart and Vascular Provider 11/06/22 11/12/22 Catherine Cm MD [address] [facility]00 [place] [id number] Assigned Heart and Vascular Provider 11/13/22 05/27/23 Sydnie Martinez, VJ Personal Advocate & Liaison (PAL) Family Medicine 03/28/23 07/31/23 Alfonso Renteria MD [address] [facility] [address] [place] [address] Assigned Neuroscience Provider 04/02/23 09/29/24 Cheng Todd PA-C [address] [place] [address] Assigned PCP 04/30/23 07/15/23 Radha Lomeli APRN AUDIOVISUAL EQUIPMENT OPERATOR [address] [facility] [address] [place] [address] Assigned Heart and Vascular Provider 05/28/23 [place] David [place] [address] [facility] [place] [address] Ophthalmology 06/15/23 Pao Joseph, VJ Personal Advocate & Liaison (PAL) Nurse 08/01/23 11/07/23 Esha Grimm PA-C [address] [place] [phone] Assigned PCP 07/16/23 Valery Veronica PA-C [address] [place], [place] 7[address] Physician Pallet Stone Positioner Dermatology 09/19/23 Rey Tay MD [address] [place] [address] 279115 Gastroenterology 09/20/23 Rocky Zepeda DO [address] [place] [address] Physician Gastroenterology 09/20/23 Philip Dumont MD [address] [place] [address] Physician Ophthalmology 09/22/23 Meredith Carrera PA-C [address] [place] [address] Assigned Gastroenterology Provider 11/01/23 Neil Kent MD [address] [place] [address] MD Dermatology 11/02/23 Juan [place] [address] [place] [address] [facility] [place] [address] Neurological Surgery 12/26/23 Audrey Waite PA-C [address] [place] [address] Physician Pallet Stone Positioner Dermatology 02/28/24 Valery Veronica PA-C 315387 [place] [address] Physician Pallet Stone Positioner Dermatology 04/10/24 Herminia Hatch MD [address] [place] [address] [id number] Assigned Rheumatology Provider 07/02/24 Jelena David OD [address] [place] [address] [place] [address] Ophthalmology 08/30/24 [place] [address] [place] [address] Assigned Neuroscience Provider 09/30/24 Maru Man PA-C [address] [place] [address] Physician Pallet Stone Positioner Dermatology 10/03/24 Maru Man PA-C [address] [place] [address] Physician Pallet Stone Positioner Dermatology 10/22/24 [place] David OD [address] [facility] [place] [address] Assigned Surgical Provider 10/31/24 documented as of this encounter
--- OUTSIDE RECORDS SUMMARY | 2024-11-21 05:14 | XMS_ITS | Encounter Summary ---
Author Organization [facility] Address [address] [place] [address] Care Team Providers Care Firer Helper Name Role Phone Lita Oseguera Unavailable Unavailable Marija Edgar APRN RADIO DISC JOCKEY Primary Care Provider + Chanelle Mccann APRN CNM Unavailab le Kyara De La Fuente RN Unavailable [phone] Marija Edgar APRN RADIO DISC JOCKEY Unavailable [phone] Mynor Broussard MD Unavailable [phone] Keisha Dotson MD Unavailable [phone] Mary Mejia Unavailable Unavailable Stacey Briones WET PRESS TENDER Unavailable Lesley Guillermo CHW Unavailable Mary Mejia Unavailable Unavailable Lita Oseguera Unavailable Unavailable Galo Burrell MD Unavailable Unavailable Cristina Wood Unavailable Lesley Guillermo CHW Unavailable Meredith Bedoya Unavailable Unavailable Cristina Wood Unavailable Diana Desir [facility] Unavailable [phone] [place]uh[place], Rain Lena PA-C Unavailable Summer Lara MD Unavailable [phone] Summer Lara MD Unavailable [phone] Summer Lara MD Unavailable [phone] Tavia Wyatt MD Unavailable [phone] Johnny Murillo MD Unavailable [phone] Erica Farrell APRN RADIO DISC JOCKEY Unavailable VikasTeresita H Unavailable Tavia Wyatt MD Unavailable [phone] Diana Desir [facility] Unavailable [phone] Rich Barrett MD Unavailable [phone] Neil Kent MD Unavailable Roney Story [facility] Unavailable Erica Farrell APRN RADIO DISC JOCKEY Unavailable Diana Desir [facility] Unavailable [phone] Jelena David OD Unavailable Galo Burrell MD Unavailable Unavailable Livan Sharif MD Unavailable Livan Sharif MD Unavailable Catherine Cm MD Unavailable + Valery Veronica PA-C Unavailable [phone] Catherine Cm MD Unavailable + Johnny Murillo MD Unavailable +[phone] Brea Quinn APRN RADIO DISC JOCKEY Unavailable [phone] Brea Quinn FINANCIAL OPERATIONS ANALYST RADIO DISC JOCKEY Unavailable [phone] Jose Francisco Johnson MD Unavailable Livan Sharif MD Unavailable Catherine Cm MD Unavailable + Sydnie Martinez RN Unavailable Unavailable Alfonso Renteria MD Unavailable [phone] Esha Grimm PA-C Primary Care Provider Cheng Todd PA-C Unavailable Radha Lomeli APRN, CNP Unavailable Jelena David OD Unavailable Pao Joseph RN Unavailable Unavailable Esha Grimm PA-C Unavailable [phone] Valery Veronica PA-C Unavailable Rey Tay MD Unavailable Rocky Zepeda DO Unavailable Philip Dumont MD Unavailable Meredith Carrera PA-C Unavailable [phone] Neil Kent MD Unavailable Juan Pablo Emmanuel MD Unavailable Audrey Waite PA-C Unavailable Valery Veronica PA-C Unavailable Herminia Hatch MD Unavailable Jelena David OD Unavailable [phone] Juan Pablo Emmanuel MD Unavailable Maru Man PA-C Unavailable Maru Man PA-C Unavailable Jelena David OD Unavailable Reason for Visit * Reason Comments Medication Refill Encounter Details Date Type Department Care Team (Late st Contact Info) Description 07/14/2020 Refill [facility] [id number] [place] [address] [phone] Rakesh Cid PA-C [address] [place] [address] Medication Refill Social History Tobacco Use Types [...] CDT Legal Sex Female 4:13 AM SKEIN YARN DYER HELPER Gender Identity Female 03/02/2021 5:45 PM CDT Sexual Orientation Straight 02/28/2020 12 :51 AM CDT COVID-19 Exposure Response Date Recorded In the last month, have you been in contact with someone who was confirmed or suspected to have Coronavirus / COVID-19? No / Unsure 06/24/2020 3:01 PM SKEIN YARN DYER HELPER documented as of this encounter Miscellaneous Notes * Telephone Encounter - Estephania Black RN - 07/16/2020 11:38 AM SKEIN YARN DYER HELPER Routing refill request to provider for review/approval because: Labs out of range: PHQ9> 4 patient was seen 3 weeks ago. Estephania Black RN Flex N YARN DYER HELPER * Telephone Encounter - Brea Perry RN - 07/16/2020 11:34 AM SKEIN YARN DYER HELPER Routing to correct clinic. N YARN DYER HELPER documented in this encounter Plan of Treatment Upcoming Encounters Date Type Department Care Team (Late st Contact Info) Description 11/21/2024 7:00 AM CDT Office Visit [address] [phone] Maru Man PA-C [address] [place] [address] 12/20/2024 2:30 PM CDT Office Visit [facility] [address] [place] [address] Esha Grimm PA-C [address] [place] [address] 04/16/2025 11:00 AM CDT Virtual Visit [facility] [address] [place] [phone] Meredith Carrera PA-C [address] [place] [address] documented as of this encounter Visit Diagnoses Diagnosis Anxiety Anxiety state, unspecified documented in this encounter Additional Health Concerns Infection Onset Date Last Indicated Resolved Time Rule Out COVID-19 07/30/2020 07/30/2020 07/30/2020 7:11 PM SKEIN YARN DYER HELPER Rule Out COVID-19 08/30/2020 08/30/2020 08/30/2020 5:05 PM SKEIN YARN DYER HELPER Rule Out COVID-19 09/24/2020 09/24/2020 09/24/2020 9:24 AM CDT Rule Out COVID-19 11/05/2020 11/05/2020 11/06/2020 1:09 PM CDT Rule Out COVID-19 05/11/2021 05/11/2021 05/13/2021 10:18 AM CDT Rule Out COVID-19 07/13/2021 07/13/2021 07/14/2021 3:04 PM SKEIN YARN DYER HELPER Rule Out COVID-19 07/18/2021 07/18/2021 07/20/2021 1:56 PM SKEIN YARN DYER HELPER COVID-19 07/18/2021 07/18/2021 08/08/2021 11:3 9 PM SKEIN YARN DYER HELPER Rule Out COVID-19 12/18/2021 12/18/2021 12/19/2021 11:34 AM CDT Rule Out COVID-19 02/24/2022 02/24/2022 02/25/2022 1:08 PM CDT Rule Out COVID-19 04/26/2022 04/26/2022 04/26/2022 6:47 AM CDT Rule Out COVID-19 05/17/2022 05/17/2022 05/17/2022 10:20 PM SKEIN YARN DYER HELPER Rule Out COVID-19 06/09/2022 06/09/2022 06/09/2022 9:35 AM SKEIN YARN DYER HELPER COVID-19 06/09/2022 06/09/2022 06/30/2022 11:4 1 PM SKEIN YARN DYER HELPER Rule Out COVID-19 11/10/2022 11/10/2022 11/11/2022 12:17 PM CDT Rule Out COVID-19 03/07/2023 03/07/2023 03/07/2023 1:20 PM CDT Rule Out COVID-19 12/26/2023 12/26/2023 12/26/2023 9:50 AM CDT Rule Out COVID-19 04/09/2024 04/09/2024 04/10/2024 6:48 PM CDT Rule Out COVID-19 10/04/2024 10/04/2024 10/05/2024 9:42 AM CDT Rule Out COVID-19 11/20/2024 11/20/2024 Assessment Noted Time PHQ-9 Depression Total Score: 9 06/25/20 20 7:04 AM SKEIN YARN DYER HELPER documented as of this encounter Care Teams Firer Helper Relationship Specialty Start Date End Date Marija Edgar APRN CNP PCP - General Nurse Practitioner 04/30/20 04/14/23 Esha Grimm PA-C [address] [place] [address] PCP - General Family Medicine 05/04/23 Lita Oseguera Personal Advocate & Liaison (PAL) 02/28/20 03/27/23 Chanelle Mccann APRN CNM [address] [address] [place] [address] Assigned OBGYN Provider 05/02/2005/09 Kyara De La Fuente, RN Specialty It Data Architect Neurology 06/04/20 03/05/21 Marija Edgar APRN RADIO DISC JOCKEY Assigned PCP 06/08/20 04/29/23 Mynor Broussard MD [address] [facility] [address] [place], [place] [phone] Assigned Surgical Provider 06/01/20 11/28/21 Keisha Dotson MD [address] [place] [address] Assigned Neuroscience Provider 06/04/20 04/01/23 Mary Mejia Financial Resource Worker 08/07/20 08/21/20 Stacey Briones, WET PRESS TENDER Lead It Data Architect Primary Care - CC 08/11/2012/30 Lesley Guillermo, [facility] Community Health Worker 08/11/2010/01 Mary Mejia Financial Resource Worker 09/02/20 10/06/20 Lita Oseguera Personal Advocate & Liaison (PAL) Family Medicine 09/10/20 09/21/20 Galo Burrell MD Assigned Heart and Vascular Provider 10/05/20 04/02/22 Cristina Wood Financial Resource Worker 10/07/20 10/14/20 Lesley Guillermo, [facility] Community Health Worker 10/23/2012/30 Meredith Bedoya Financial Resource Worker 10/23/20 11/23/20 Cristina Wood Financial Resource Worker 02/09/21 02/09/21 Diana Desir, [facility] [address] [place] [address] Pharmacist Pharmacist 04/17/21 Rain Galaviz PA-C [address] [place] [address] [address] [place], [place] [phone] Physician Retort Or Condenser Press Operator Dermatology 04/28/21 Summer Lara MD [address] [place] [address] [phone] Assigned OBGYN Provider 05/10/2105/23 Summer Lara MD [address] [place] [address] [phone] Assigned OBGYN Provider 05/31/21 2 Summer Lara MD [address] [place] [address] [phone] Assigned OBGYN Provider 05/24/2105/30 Tavia Wyatt MD [address] [place] [address] [phone] Dermatology 07/14/21 Jonhny Murillo MD [address] [place] [address] Assigned Musculoskeletal Provider 08/30/21 03/17/22 Erica Farrell APRN RADIO DISC JOCKEY [address] [facility] [address] [place] [address] Nurse Practitioner Cardiovascular Disease 09/09/21 Teresita Bean [facility] [address] [facility] [place] [address] Pharmacist Pharmacist 09/24/21 09/29/21 Tavia Wyatt MD [address] [place] [address] Assigned Surgical Provider 11/29/21 05/07/22 [facility] [address] [place] [address] Assigned MTM Pharmacist 01/02/22 Rich Barrett MD [address] [place] [address] Physician Ophthalmology 01/21/22 Neil Kent MD [address] [place] [address] Dermatology 02/24/22 Roney Story DPM [address] [facility] [address] [place] [address] Assigned Musculoskeletal Provider 03/20/22 08/13/22 Erica Farrell APRN RADIO DISC JOCKEY [address] [place] [address] Assigned Heart and Vascular Provider 04/03/22 04/16/22 Diana Desir [facility] [address] [place] [address] Assigned MTM Pharmacist 04/07/22 Jelena David OD [address] [facility] [place] [address] Assigned Surgical Provider 05/08/22 10/08/22 Galo Burrell MD Assigned Heart and Vascular Provider 04/17/22 06/11/22 Livan Sharif MD [address] [address] [place] [address] Cardiovascular Disease 05/14/22 Livan Sharif MD [address] [place] [address] [place] [address] Assigned Heart and Vascular Provider 06/12/22 07/23/22 Catherine Cm MD [address] [address] [place] [phone] Cardiovascular Disease 07/21/22 Valery Veronica PAUcheC [address] [place] [address] Physician Retort Or Condenser Press Operator Dermatology 07/21/22 Catherine Cm MD [address] [place] [address] Assigned Heart and Vascular Provider 07/24/22 11/05/22 Johnny Murillo MD [address] [id number] Assigned Musculoskeletal Provider 08/14/22 10/08/22 Brea Quinn APRN RADIO DISC JOCKEY [address] [place], [place] 466[address] Nurse Practitioner Dermatology 09/21/22 Brea Quinn APRN RADIO DISC JOCKEY [facility] [place] 127382 Assigned Surgical Provider 10/09/22 05/01/24 [place] [address] [facility] [address] [place] [address] Assigned Musculoskeletal Provider 10/09/22 05/01/24 Livan Sharif MD [address] [facility] [address] [place] [address] Assigned Heart and Vascular Provider 11/06/22 11/12/22 Catherine Cm MD [address] [facility] [address] [place] [address] Assigned Heart and Vascular Provider 11/13/22 05/27/23 Sydnie Martinez RN Personal Advocate & Liaison (PAL) Family Medicine 03/28/23 07/31/23 Alfonso Renteria MD [address] [facility] 200 [place], [place] 623276 Assigned Neuroscience Provider 04/02/23 09/29/24 Cheng Todd PA-C [address] [place] [address] [phone] Assigned PCP 04/30/23 07/15/23 Radha Lomeli APRN RADIO DISC JOCKEY [address] [facility] [address] [place], [place] 6[address] Assigned Heart and Vascular Provider 05/28/23 Jelena David OD [address] [facility] [address] [place] [phone] MD Ophthalmology 06/15/23 Pao Joseph, VJ Personal Advocate & Liaison (PAL) Nurse 08/01/23 11/07/23 Esha Grimm PA-C [address] [place] [phone] Assigned PCP 07/16/23 Valery Veronica PA-C [address] [place] [address] Physician Retort Or Condenser Press Operator Dermatology 09/19/23 Rey Tay MD [address] [place] [address] [phone] Gastroenterology 09/20/23 Rocky Zepeda DO [address] [place] [address] 472165 Physician Gastroenterology 09/20/23 Philip Dumont MD [address] [place] [address] [phone] Physician Ophthalmology 09/22/23 Meredith Carrera PA-C [address] [place] [address] Assigned Gastroenterology Provider 11/01/23 Neil Kent MD [address] [address] Dermatology 11/02/23 [place] [address] [place] [id number] Neurological Surgery 12/26/23 Audrey Waite PA-C [address] [place] [address] Physician Retort Or Condenser Press Operator Dermatology 02/28/24 Valery Veronica PA-C 9[address]05 [address], [place] [address] Physician Retort Or Condenser Press Operator Dermatology 04/10/24 Herminia Hatch MD [facility]5 [place], [place] [id number] Assigned Rheumatology Provider 07/02/24 Jelena David OD [address] [facility] [place] [address] Ophthalmology 08/30/24 [place] [address] [address] [place] [address] Assigned Neuroscience Provider 09/30/24 Maru Man PA-C [address] [place] [address] Physician Retort Or Condenser Press Operator Dermatology 10/03/24 Maru Man PA-C [address] [place] [address] Physician Retort Or Condenser Press Operator Dermatology 10/22/24 Jelena David OD [address] [place] [address] [place] [address] Assigned Surgical Provider 10/31/24 documented as of this encounter
--- OUTSIDE RECORDS SUMMARY | 2024-11-21 05:14 | XMS_ITS | Encounter Summary ---
Author Organization [facility] Address [address] [place] [address] Care Team Providers Care Divine Healer Name Role Phone Rakesh Cid PA-C Unavailable [phone] Rakesh Cid PA-C Primary Care Provider [phone] Lita Oseguera Unavailable Unavailable Rakesh Cid PA-C Unavailable [phone] Isaura Lamar RN Unavailable Unavailable Lita Oseguera Unavailable Unavailable Marija Edgar APRN [employer] Primary Care Provider + Chanelle Mccann APRN CN Unavailab le Lesley Guillermo CHKamryn Unavailable [phone] Kyara De La Fuente RN Unavailable [phone] Marija Edgar APRN [employer] Unavailable [phone] Mynor Broussard MD Unavailable [phone] Keisha Dotson MD Unavailable [phone] Mary Mejia Unavailable Unavailable Stacey Briones [employer]IPLOMA MAKER Unavailable [phone] Lesley Guillermo CHW Unavailable [phone] Mary Mejia Unavailable Unavailable Lita Oseguera Unavailable Unavailable Galo Burrell MD Unavailable Unavailable Cristina Wood Unavailable Eagle Lesley C [facility] Unavailable Meredith Bedoya Unavailable Unavailable Cristina Wood Unavailable Thang Diana [place] [facility] Unavailable [phone] Rain Galaviz-C Unavailable Summer Lara MD Unavailable [phone] Summer Lara MD Unavailable [phone] Summer Lara MD Unavailable [phone] Tavia Wyatt MD Unavailable [phone] Johnny Murillo MD Unavailable Erica Farrell APRN [employer] Unavailable Teresita Bean [facility] Unavailable Tavia Wyatt MD Unavailable [phone] Diana Desir [facility] Unavailable [phone] Rich Barrett MD Unavailable [phone] Neil [place] MD Unavailable Roney Story DPM Unavailable Erica Farrell LEAD BURNER HELPER [employer] Unavailable Diana Desir [facility] Unavailable [phone] Jelena David OD Unavailable [phone] Galo Burrell MD Unavailable Unavailable Livan Sharif MD Unavailable + Livan Sharif MD Unavailable + Catherine Cm MD Unavailable + Valery Veronica-C Unavailable Catherine Cm MD Unavailable + Johnny Murillo MD Unavailable [phone] Brea Quinn LEAD BURNER HELPER [employer] Unavailable [phone] Brea Quinn LEAD BURNER HELPER [employer] Unavailable [phone] Jose Francisco Johnson MD Unavailable Livan Sharif MD Unavailable Catherine Cm MD Unavailable + Sydnie Martinez RN Unavailable Unavailable Alfonso Renteria MD Unavailable Esha Grimm PA-C Primary Care Provider Cheng Todd PA-C Unavailable Radha Lomeli LEAD BURNER HELPER [employer] Unavailable Jelena David OD Unavailable Pao Joseph RN Unavailable Unavailable Esha Grimm PA-C Unavailable [phone] Valery Veronica PA-C Unavailable Rey Tay MD Unavailable Rocky Zepeda DO Unavailable Philip Dumont MD Unavailable [phone] Meredith Carrera PA-C Unavailable [phone] Neil Kent MD Unavailable Juan Pablo Emmanuel MD Unavailable Audrey Waite PA-C Unavailable Valery Veronica PA-C Unavailable Herminia Hatch MD Unavailable Jelena David OD Unavailable [phone] Juan Pablo Emmanuel MD Unavailable Maru Man PA-C Unavailable [phone] Maru Man PA-C Unavailable [phone] Encounter Details Date Type Department Care Team (Late st Contact Info) Description 02/27/2020 Telephone [facility] [address] [facility], [address] [place] [address] Rakesh Cid PA-C [address] [place] [address] Social History Tobacco Use Types [...] Answer Date Recorded PHQ-2 Score 1 10/24/2024 [facility] [place] of Occupat ional Health - Occupational Stress [...] exercise at this level? 20 min 05/07/2024 Satsuma Depression Scale Answer Date Recorded Satsuma Depression Score 5 01/14/2021 Last EPDS Self [...] PM CDT Legal Sex Female 4:13 AM CRITICAL CARE SPECIALIST Gender Identity Female 03/02/2021 5:45 PM [...] message?: Yes at Home number on file [phone] (home) Violet Jeffrey Patient Sales Agent documented in this encounter Plan of Treatment Upcoming Encounters Date Type Department Care Team (Late st Contact Info) Description 11/21/2024 7:00 AM CDT Office Visit [address] [place] [address] Maru Man PA-C [address] [address] 12/20/2024 2:30 PM CDT Office Visit [facility] [address] [place] [address] Esha Grimm PA-C [address] [place] [address] 04/16/2025 11:00 AM CDT Virtual Visit [facility] [address] [place] [phone] Meredith Carrera PA-C [address] [place] [address] documented as of this encounter Visit Diagnoses Not on filedocumented in this encounter Additional Health Concerns Infection Onset Date Last Indicated Resolved Time Rule Out COVID-19 07/30/2020 07/30/2020 07/30/2020 7:11 PM CRITICAL CARE SPECIALIST Rule Out COVID-19 08/30/2020 08/30/2020 08/30/2020 5:05 PM CRITICAL CARE SPECIALIST Rule Out COVID-19 09/24/2020 09/24/2020 09/24/2020 9:24 AM CDT Rule Out COVID-19 11/05/2020 11/05/2020 11/06/2020 1:09 PM CDT Rule Out COVID-19 05/11/2021 05/11/2021 05/13/2021 10:18 AM CDT Rule Out COVID-19 07/13/2021 07/13/2021 07/14/2021 3:04 PM CRITICAL CARE SPECIALIST Rule Out COVID-19 07/18/2021 07/18/2021 07/20/2021 1:56 PM CRITICAL CARE SPECIALIST COVID-19 07/18/2021 07/18/2021 08/08/2021 11:3 9 PM CRITICAL CARE SPECIALIST Rule Out COVID-19 12/18/2021 12/18/2021 12/19/2021 11:34 AM CDT Rule Out COVID-19 02/24/2022 02/24/2022 02/25/2022 1:08 PM CDT Rule Out COVID-19 04/26/2022 04/26/2022 04/26/2022 6:47 AM CDT Rule Out COVID-19 05/17/2022 05/17/2022 05/17/2022 10:20 PM CRITICAL CARE SPECIALIST Rule Out COVID-19 06/09/2022 06/09/2022 06/09/2022 9:35 AM CRITICAL CARE SPECIALIST COVID-19 06/09/2022 06/09/2022 06/30/2022 11:4 1 PM CRITICAL CARE SPECIALIST Rule Out COVID-19 11/10/2022 11/10/2022 11/11/2022 [...] documented as of this encounter Care Teams Divine Healer Relationship Specialty Start Date End Date Rakesh Cid PA-C [address] [place] [address] PCP - General Physician [employer] Supervisor - Medical 05/14/19 04/29/20 Marija Edgar APRN CNP PCP - General Nurse Practitioner 04/30/20 04/14/23 Esha Grimm PA-C [address] [place] [address] PCP - General Family Medicine 05/04/23 Rakesh Cid PA-C [address] [place] [address] Assigned PCP 05/06/19 03/01/20 Lita Oseguera Personal Advocate & Liaison (PAL) 02/28/20 03/27/23 Rakesh Cid PA-C [address] [place] [address] Assigned PCP 03/02/20 06/07/20 Isaura Lamar RN Personal Advocate & Liaison (PAL) Family Practice 04/03/20 04/06/20 Lita Oseguera Personal Advocate & Liaison (PAL) 04/07/20 04/29/20 Chanelle Mccann APRN CNM [address] [place] [address] 200 [place], [place] 782667 Assigned OBGYN Provider 05/02/2005/09 Lesley Guillermo W Community Health Worker 05/30/2005/12 Kyara De La Fuente, RN Specialty Lepidopterist Neurology 06/04/20 03/05/21 Marija Edgar APRN [employer] Assigned PCP 06/08/20 04/29/23 Mynor Broussard MD [address] [facility] [address] [place], [place] [address] Assigned Surgical Provider 06/01/20 11/28/21 Keisha Dotson MD [address] [place], [place] 722[address] Assigned Neuroscience Provider 06/04/20 04/01/23 Mary Mejia Financial Resource Worker 08/07/20 08/21/20 Stacey Briones, [facility] Lead Lepidopterist Primary Care - CC 08/11/2012/30 Lesley Guillermo, [...] [facility] [address] [place] [address] Pharmacist Pharmacist 04/17/21 Rain Galaviz PA-C [address] [place] [address] [facility] [address] Physician [employer] Supervisor Dermatology 04/28/21 Summer Lara MD [address] [place], [place] [address] Assigned OBGYN Provider 05/10/2105/23 Summer Lara MD [address] [place], [place] [address] Assigned OBGYN Provider 05/31/21 Summer Lara MD [address] [place], [place] [address] Assigned OBGYN Provider 05/24/2105/30 Tavia Wyatt MD [address] [facility] [place], [place] [address] Dermatology 07/14/21 Johnny Murillo MD [address] [facility] [address] [place], [place] [address] Assigned Musculoskeletal Provider 08/30/21 03/17/22 Erica Farrell APRN [employer] [address] [facility] [address] [place], [place] [address] Nurse Practitioner Cardiovascular Disease 09/09/21 Teresita Bean [facility] [address] [place] [phone] Pharmacist Pharmacist 09/24/21 09/29/21 Tavia Wyatt MD [address] [place] [address] [phone] Assigned Surgical Provider 11/29/21 05/07/22 Diana Desir, [facility] [address]33 [place] [address] Assigned MTM Pharmacist 01/02/22 Rich Barrett MD [address] [place] [address] Physician Ophthalmology 01/21/22 Neil [place] MD 500 [place], [place] 257655 Dermatology 02/24/22 Roney Story DPM [address] [facility] [address] [place] [address] Assigned Musculoskeletal Provider 03/20/22 08/13/22 Erica Farrell APRN [employer] 1700 [place] [address] Assigned Heart and Vascular Provider 04/03/22 04/16/22 Diana Desir, [facility] [address] [place] [address] Assigned MTM Pharmacist 04/07/22 Jelena David OD [address] [facility] [place] [address] Assigned Surgical Provider 05/08/22 10/08/22 Galo Burrell MD Assigned Heart and Vascular Provider 04/17/22 06/11/22 Livan Sharif MD [address] [facility] [address] [place] [address] Cardiovascular Disease 05/14/22 Livan Sharif MD [address] [facility] [place] [address] Assigned Heart and Vascular Provider 06/12/22 07/23/22 Catherine Cm MD [address] [place] [address] [address] Cardiovascular Disease 07/21/22 Valery Veronica, PAUcheC [address] [place] [address] 463735 Physician [employer] Supervisor Dermatology 07/21/22 Catherine Cm MD [address] [place] [address] [address] Assigned Heart and Vascular Provider 07/24/22 11/05/22 [place] [address] [place] [address] Assigned Musculoskeletal Provider 08/14/22 10/08/22 Brea Quinn APRN [employer] [address] [place] [address] 365585 Nurse Practitioner Dermatology 09/21/22 Brea Quinn APRN [employer] [address] [place] [address] [place] [id number] Assigned Surgical Provider 10/09/22 05/01/24 [place] [address] [place] [address] Assigned Musculoskeletal Provider 10/09/22 05/01/24 Livan Sharif MD [address] [place] [address] [place] [address] Assigned Heart and Vascular Provider 11/06/22 11/12/22 Catherine Cm MD [address] [place] [address] [place] [address] Assigned Heart and Vascular Provider 11/13/22 05/27/23 Sydnie Martinez RN Personal Advocate & Liaison (PAL) Family Medicine 03/28/23 07/31/23 Alfonso Renteria MD [address] [facility] 200 [place] [address] Assigned Neuroscience Provider 04/02/23 09/29/24 Cheng Todd PA-C [address] [place] [address] [id number] Assigned PCP 04/30/23 07/15/23 Radha Lomeli APRN [employer] [address] [place] [address] Assigned Heart and Vascular Provider 05/28/23 Jelena David OD [facility] [facility] [place] [address] Ophthalmology 06/15/23 Pao Joseph, VJ Personal Advocate & Liaison (PAL) Nurse 08/01/23 11/07/23 Esha Grimm PA-C [address] [place] [address] Assigned PCP 07/16/23 Valery Veronica PA-C [address] [place] [address] [id number] Physician [employer] Supervisor Dermatology 09/19/23 Rey Tay MD [address] [place] [address] 359435 MD Gastroenterology 09/20/23 Rocky Zepeda DO [address] [place] [address] 387585 Physician Gastroenterology 09/20/23 Philip Dumont MD [address] [place] [address] 230235 Physician Ophthalmology 09/22/23 Meredith Carrera PA-C [address] [place] [address] 689895 Assigned Gastroenterology Provider 11/01/23 Neil [place] MD [address] [address] Dermatology 11/02/23 [place] [address] [place] [address] Neurological Surgery 12/26/23 Audrey Waite PA-C [address] [place] [address] Physician [employer] Supervisor Dermatology 02/28/24 Valery Veronica PA-C [address] [place] [address] Physician [employer] Supervisor Dermatology 04/10/24 Herminia Hatch MD [address] [place] [address] Assigned Rheumatology Provider 07/02/24 Jelena David OD [address] [facility] [place] [address] Ophthalmology 08/30/24 [place] [address] [place] [address] Assigned Neuroscience Provider 09/30/24 Maru Man PA-C [address] [place] [address] Physician [employer] Supervisor Dermatology 10/03/24 Maru Man PA-C [address] [place] [address] Physician [employer] Supervisor Dermatology 10/22/24 documented as of this encounter
--- OUTSIDE RECORDS SUMMARY | 2024-11-21 05:14 | XMS_ITS | Encounter Summary ---
Author Organization [place] Address [address] [place] [address] Care Team Providers Care Wooden Fence Erector Name Role Phone Rakesh Cid PA-C Unavailable [phone] Rakesh Cid PA-C Primary Care Provider [phone] Lita Oseguera Unavailable Unavailable Rakesh Cid PA-C Unavailable [phone] Isaura Lamar RN Unavailable Unavailable Lita Oseguera Unavailable Unavailable Marija Edgar APRN SOUND RECORDIST Primary Care Provider + Chanelle Mccann APRN CN Unavailab le Lesley Guillermo CHKamryn Unavailable [phone] Kyara De La Fuente RN Unavailable [phone] Marija Edgar APRN SOUND RECORDIST Unavailable [phone] Mynor Broussard MD Unavailable Keisha Dotson MD Unavailable [phone] Mary Mejia Unavailable Unavailable Stacey Briones POACHER OPERATOR Unavailable [phone] Lesley Guillermo CHW Unavailable [phone] Mary Mejia Unavailable Unavailable Lita Oseguera Unavailable Unavailable Galo Burrell MD Unavailable Unavailable Cristina Wood Unavailable Eagle Lesley C [facility] Unavailable Meredith Bedoya Unavailable Unavailable Cristina Wood Unavailable Thang Diana [place] [facility] Unavailable [phone] Rain Galaviz-C Unavailable Summer Lara MD Unavailable [phone] Summer Lara MD Unavailable [phone] Summer Lara MD Unavailable [phone] Tavia Wyatt MD Unavailable [phone] Johnny Murillo MD Unavailable Erica Farrell APRN SOUND RECORDIST Unavailable Teresita Bean [facility] Unavailable Tavia Wyatt MD Unavailable [phone] Diana Desir [facility] Unavailable [phone] Rich Barrett MD Unavailable [phone] Neil Kent MD Unavailable Roney Story DPM Unavailable Erica Farrell COMMERCIAL DRONE SOFTWARE DEVELOPER SOUND RECORDIST Unavailable Diana Desir [facility] Unavailable [phone] Jelena David OD Unavailable Galo Burrell MD Unavailable Unavailable Livan Sharif MD Unavailable + Livan Sharif MD Unavailable + Catherine Cm MD Unavailable + Valery Veronica-C Unavailable Catherine Cm MD Unavailable + Johnny Murillo MD Unavailable [phone] Brea Quinn COMMERCIAL DRONE SOFTWARE DEVELOPER SOUND RECORDIST Unavailable [phone] Brea Quinn COMMERCIAL DRONE SOFTWARE DEVELOPER SOUND RECORDIST Unavailable [phone] Jose Francisco Johnson MD Unavailable Livan Sharif MD Unavailable Catherine Cm MD Unavailable + Sydnie Martinez RN Unavailable Unavailable Alfonso Renteria MD Unavailable Esha Grimm PA-C Primary Care Provider Cheng Todd PA-C Unavailable Radha Lomeli COMMERCIAL DRONE SOFTWARE DEVELOPER SOUND RECORDIST Unavailable Jelnea David OD Unavailable Pao Joseph RN Unavailable Unavailable Esha Grimm PA-C Unavailable [phone] Valery Veronica PA-C Unavailable Rey Tay MD Unavailable Rocky Zepeda DO Unavailable Philip Dumont MD Unavailable [phone] Meredith Carrera PA-C Unavailable [phone] Neil Kent MD Unavailable Juan Pablo Emmanuel MD Unavailable Audrey Waite PA-C Unavailable Valery Veronica PA-C Unavailable Herminia Hatch MD Unavailable Jelena David OD Unavailable Juan Pablo Emmanuel MD Unavailable Maru Man PA-C Unavailable [phone] Maru Man PA-C Unavailable + Jelena David OD Unavailable [phone] Reason for Visit * Reason Onset Date Comments Appointment 02/13/2020 Anxiety Encounter Details Date Type Department Care Team (Late st Contact Info) Description 02/13/[address] [phone] Rakesh Cid PA-C [address] [place] [address] Appointment (Anxiety) Social History Tobacco [...] PM CDT Legal Sex Female 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 [employer] Gender Identity Female 03/02/2021 5:45 PM CDT [...] CDT Office Visit [facility] [address] [phone] Maru Man PA-C [address] [place] [address] [phone] 12/20/2024 2:30 PM CDT Office Visit [facility] [address] [place] [phone] Esha Grimm PA-C [address] [place] [phone] 04/16/2025 11:00 AM CDT Virtual Visit [facility] [address] [place] [phone] Meredith Carrera PA-C [address] [place] [address] documented as of this encounter Visit Diagnoses Not on filedocumented in this encounter Additional Health Concerns Infection Onset Date Last Indicated Resolved Time Rule Out COVID-19 07/30/2020 07/30/2020 07/30/2020 7:11 PM CLIENT MANAGER [employer] Rule Out COVID-19 08/30/2020 08/30/2020 08/30/2020 5:05 PM CLIENT MANAGER [employer] Rule Out COVID-19 09/24/2020 09/24/2020 09/24/2020 9:24 AM CDT Rule Out COVID-19 11/05/2020 11/05/2020 11/06/2020 1:09 PM CDT Rule Out COVID-19 05/11/2021 05/11/2021 05/13/2021 10:18 AM CDT Rule Out COVID-19 07/13/2021 07/13/2021 07/14/2021 3:04 PM CLIENT MANAGER [employer] Rule Out COVID-19 07/18/2021 07/18/2021 07/20/2021 1:56 PM CLIENT MANAGER [employer] COVID-19 07/18/2021 07/18/2021 08/08/2021 11:3 9 PM CLIENT MANAGER [employer] Rule Out COVID-19 12/18/2021 12/18/2021 12/19/2021 11:34 AM CDT Rule Out COVID-19 02/24/2022 02/24/2022 02/25/2022 1:08 PM CDT Rule Out COVID-19 04/26/2022 04/26/2022 04/26/2022 6:47 AM CDT Rule Out COVID-19 05/17/2022 05/17/2022 05/17/2022 10:20 PM CLIENT MANAGER [employer] Rule Out COVID-19 06/09/2022 06/09/2022 06/09/2022 9:35 AM CLIENT MANAGER [employer] COVID-19 06/09/2022 06/09/2022 06/30/2022 11:4 1 PM CLIENT MANAGER [employer] Rule Out COVID-19 11/10/2022 11/10/2022 11/11/2022 12:17 PM CDT Rule Out COVID-19 03/07/2023 03/07/2023 03/07/2023 1:20 PM CDT Rule Out COVID-19 12/26/2023 12/26/2023 12/26/2023 9:50 AM CDT Rule Out COVID-19 04/09/2024 04/09/2024 04/10/2024 6:48 PM CDT Rule Out COVID-19 10/04/2024 10/04/2024 10/05/2024 9:42 AM CDT Rule Out COVID-19 11/20/2024 11/20/2024 Assessment Noted Time PHQ-9 Depression Total Score: 1 09/11/19 1:42 PM CLIENT MANAGER [employer] documented as of this encounter Care Teams Wooden Fence Erector Relationship Specialty Start Date End Date Rakesh Cid PA-C [address] [place] [address] PCP - General Physician Parent Partner - Medical 05/14/19 04/29/20 Marija Edgar APRN SOUND RECORDIST PCP - General Nurse Practitioner 04/30/20 04/14/23 Esha Grimm PA-C [address] [place] [phone] PCP - General Family Medicine 05/04/23 Rakesh Cid PA-C [address] [place] [address] Assigned PCP 05/06/19 03/01/20 Lita Oseguera Personal Advocate & Liaison (PAL) 02/28/20 03/27/23 Rakesh Cid PA-C [address] [place] [address] Assigned PCP 03/02/20 06/07/20 Isaura Lamar, RN Personal Advocate & Liaison (PAL) Family Practice 04/03/20 04/06/20 Lita Oseguera Personal Advocate & Liaison (PAL) 04/07/20 04/29/20 Chanelle Mccann APRN CNM [address] [address] [facility], [address] [address] Assigned OBGYN Provider 05/02/2005/09 Lesley Guillermo, [facility] Community Health Worker 05/30/2005/12 Kyara De La Fuente, RN Specialty Superintendent Cemetery Neurology 06/04/20 03/05/21 Marija Edgar APRN SOUND RECORDIST Assigned PCP 06/08/20 04/29/23 Mynor Broussard MD [address] [address] Assigned Surgical Provider 06/01/20 11/28/21 Keisha Dotson MD 909 [place], [place] [phone] Assigned Neuroscience Provider 06/04/20 04/01/23 Mary Mejia Financial Resource Worker 08/07/20 08/21/20 Stacey Briones, [facility] Lead Superintendent Cemetery Primary Care - CC 08/11/2012/30 Lesley Guillermo, [facility] Community Health Worker 08/11/2010/01 Mary Mejia Financial Resource Worker 09/02/20 10/06/20 Lita Oseguera Personal Advocate & Liaison (PAL) Family Medicine 09/10/20 09/21/20 Galo Burrell MD Assigned Heart and Vascular Provider 10/05/20 04/02/22 Cristina Wood Financial Resource Worker 10/07/20 10/14/20 Lesley Guillermo, [facility] Community Health Worker 10/23/2012/30 Meredith Bedoya Financial Resource Worker 10/23/20 11/23/20 Cristina Wood Financial Resource Worker 02/09/21 02/09/21 Diana Desir, [facility] [address] [place] [address] Pharmacist Pharmacist 04/17/21 Rain Galaviz PA-C [address] [place] [address] [place] [address] Physician Parent Partner Dermatology 04/28/21 Summer Lara MD [address] [place] [address] 224704 Assigned OBGYN Provider 05/10/2105/23 Summer Lara MD [address] [place] [address] Assigned OBGYN Provider 05/31/21 Summer Lara MD [address] [place] [address] [id number] Assigned OBGYN Provider 05/24/2105/30 Tavia Wyatt MD [address] [place] [address] [phone] Dermatology 07/14/21 Johnny Murillo MD [address] [facility] [address] [place], [place] [phone] Assigned Musculoskeletal Provider 08/30/21 03/17/22 Erica Farrell APRN SOUND RECORDIST [address] [facility] [address] [place] [address] Nurse Practitioner Cardiovascular Disease 09/09/21 Teresita Bean [facility] [address] [place] [phone] Pharmacist Pharmacist 09/24/21 09/29/21 Tavia Wyatt MD [address] [place] [address] Assigned Surgical Provider 11/29/21 05/07/22 Diana Desir, [facility] [address] [place] [address] Assigned MTM Pharmacist 01/02/22 Rich Barrett MD [address] [place] [address] Physician Ophthalmology 01/21/22 Neil Kent MD 500 [place] [address] Dermatology 02/24/22 Roney Story DPM [address] [facility] 300 [place], [place] 601[address] Assigned Musculoskeletal Provider 03/20/22 08/13/22 Erica Farrell APRN SOUND RECORDIST [address]00 [place] [address] Assigned Heart and Vascular Provider 04/03/22 04/16/22 Diana Desir [facility] [address] [place] [address] Assigned MTM Pharmacist 04/07/22 [place] [address] [facility] [place] [address] Assigned Surgical Provider 05/08/22 10/08/22 Galo Burrell MD Assigned Heart and Vascular Provider 04/17/22 06/11/22 Livan Sharif MD [address] [place], [place] 0[address] Cardiovascular Disease 05/14/22 Livan Sharif MD [address] [place] [address] Assigned Heart and Vascular Provider 06/12/22 07/23/22 Catherine Cm MD [address] [place] [address] Cardiovascular Disease 07/21/22 Valery Veronica, PAUcheC [address] [place], [place] 938195 Physician Parent Partner Dermatology 07/21/22 Catherine Cm MD [address] [place] 0[address]175 Assigned Heart and Vascular Provider 07/24/22 11/05/22 Johnny Murillo MD [address] [facility] [address] [place] [address] 878434 Assigned Musculoskeletal Provider 08/14/22 10/08/22 Brea Quinn APRN SOUND RECORDIST 500 [place] [address] Nurse Practitioner Dermatology 09/21/22 Brea Quinn APRN SOUND RECORDIST 64[address] [facility] [place] [address] Assigned Surgical Provider 10/09/22 05/01/24 [place] [address] [address] [address] [place], [place] 163177 Assigned Musculoskeletal Provider 10/09/22 05/01/24 Livan Sharif MD 6[address] [facility] [address] [place] [address] Assigned Heart and Vascular Provider 11/06/22 11/12/22 Catherine Cm MD 6[address] [facility] [address] [place] [address] Assigned Heart and Vascular Provider 11/13/22 05/27/23 Sydnie Martinez RN Personal Advocate & Liaison (PAL) Family Medicine 03/28/23 07/31/23 Alfonso Renteria MD 5775 [facility] 200 [place], [place] 487546 Assigned Neuroscience Provider 04/02/23 09/29/24 Cheng Todd PA-C [address] [place] [address] Assigned PCP 04/30/23 07/15/23 Radha Lomeli, ARLENE SOUND RECORDIST 6[address] [facility] [address] [place] [address] Assigned Heart and Vascular Provider 05/28/23 [place] [address] [facility] [address] MD Ophthalmology 06/15/23 Pao Joseph, VJ Personal Advocate & Liaison (PAL) Nurse 08/01/23 11/07/23 Esha Grimm PA-C [address] [place] [phone] Assigned PCP 07/16/23 Valery Veronica PA-C [address] [place] [address] [phone] Physician Parent Partner Dermatology 09/19/23 Rey Tay MD [address] [place] [address] 822325 Gastroenterology 09/20/23 Rocky Zepeda DO [address] [place] [address] 342415 Physician Gastroenterology 09/20/23 Philip Dumont MD [address] [place] [address] 637415 Physician Ophthalmology 09/22/23 Meredith Carrera PA-C [address] [place] [address] [phone] Assigned Gastroenterology Provider 11/01/23 Neil Kent MD [address] [place] [address] Dermatology 11/02/23 [place] [address] [place] [address] Neurological Surgery 12/26/23 Audrey Waite PA-C 500 [place] [address] Physician Parent Partner Dermatology 02/28/24 Valery Veronica PA-C 946619 [address], [place] [address] Physician Parent Partner Dermatology 04/10/24 Herminia Hatch MD [address] [place] [address] [phone] Assigned Rheumatology Provider 07/02/24 [place] [address] [place] [address] [place] [address] Ophthalmology 08/30/24 [place] [address] [place] [address] Assigned Neuroscience Provider 09/30/24 Maru Man PA-C [address] [place] [address] Physician Parent Partner Dermatology 10/03/24 Maru Man PA-C [address] [place] [address] Physician Parent Partner Dermatology 10/22/24 Jelena David OD [address] [place] [address] [place] [address] Assigned Surgical Provider 10/31/24 documented as of this encounter
--- OUTSIDE RECORDS SUMMARY | 2024-11-21 05:14 | XMS_ITS | Encounter Summary ---
Author Organization [place] Address [address] [place] [address] Care Team Providers Care Vine Fruit Farming Supervisor Name Role Phone Lita Oseguera Unavailable Unavailable Rakesh Cid PA-C Unavailable Marija Edgar APRN CUSTOMER SERVICE OPERATOR Primary Care Provider + Chanelle Mccann APRN CN Unavailab le Lesley Guillermo CHW Unavailable [phone] Kyara De La Fuente RN Unavailable [phone] Marija Edgar APRN [facility] Unavailable [phone] Mynor Broussard MD Unavailable [phone] Keisha Dotson MD Unavailable Mary Mejia Unavailable Unavailable Stacey Briones ALMOND GRINDER Unavailable Lesley Guillermo CHW Unavailable [phone] Mary Mejia Unavailable Unavailable Lita Oseguera Unavailable Unavailable Galo Burrell MD Unavailable Unavailable Cristina Wood Unavailable Lesley Guillermo CHW Unavailable [phone] Meredith Bedoya Unavailable Unavailable Cristina Wood Unavailable Diana Desir [facility] Unavailable [phone] Rain Galaviz PA-C Unavailable Summer Lara MD Unavailable [phone] Summer Lara MD Unavailable [phone] Summer Lara MD Unavailable [phone] Tavia Wyatt MD Unavailable [phone] Johnny Murillo MD Unavailable [phone] Erica Farrell APRN CUSTOMER SERVICE OPERATOR Unavailable Teresita Bean [facility] Unavailable Tavia Wyatt MD Unavailable [phone] Diana Desir [facility] Unavailable [phone] Rich Barrett MD Unavailable Neil Kent MD Unavailable Roney StoryM Unavailable Erica Farrell APRN CUSTOMER SERVICE OPERATOR Unavailable + Diana Desir [facility] Unavailable [phone] Jelena David OD Unavailable Galo Burrell MD Unavailable Unavailable Livan Sharif MD Unavailable Livan Sharif MD Unavailable + Catherine Cm MD Unavailable + Valery Veronica PA-C Unavailable [phone] Catherine Cm MD Unavailable + Johnny Murillo MD Unavailable [phone] Brea Quinn APRN CUSTOMER SERVICE OPERATOR Unavailable [phone] [place], Brea P PLUMBER GASFITTER CUSTOMER SERVICE OPERATOR Unavailable [phone] Jose Francisco Johnson MD Unavailable Livan Sharif MD Unavailable Catherine Cm MD Unavailable + Sydnie Martinez RN Unavailable Unavailable Alfonso Renteria MD Unavailable Esha Grimm PA-C Primary Care Provider Cheng Todd PA-C Unavailable Armani Radha Sia PLUMBER GASFITTER CUSTOMER SERVICE OPERATOR Unavailable [phone] Jelena David OD Unavailable [phone] Pao Joseph RN Unavailable Unavailable Esha Grimm PA-C Unavailable [phone] Valery Veronica PA-C Unavailable Rey Tay MD Unavailable Rocky Zepeda DO Unavailable Philip Dumont MD Unavailable [phone] Meredith Carrera PA-C Unavailable [phone] Neil Kent MD Unavailable Juan Pablo Emmanuel MD Unavailable Audrey Waite PA-C Unavailable Valery Veronica PA-C Unavailable Herminia Hatch MD Unavailable Jelena David OD Unavailable [phone] Juan Pablo Emmanuel MD Unavailable Maru Man PA-C Unavailable [phone] Maru Man PA-C Unavailable [phone] Jelena David OD Unavailable Encounter Details Date Type Department Care Team (Late st Contact Info) Description 06/05/2020 MyC Medical Advice [address] [address] Marija Edgar APRN CUSTOMER SERVICE OPERATOR [address] [place] [phone] Social History Tobacco Use Types Packs/Day Years [...] PM CDT Legal Sex Female 4:13 AM MAIL TECHNICIAN Gender Identity Female 03/02/2021 5:45 PM CDT Sexual Orientation Straight 02/28/2020 12 :51 AM CDT COVID-19 Exposure Response Date Recorded In the last month, have you been in contact with someone who was confirmed or suspected to have Coronavirus / COVID-19? No / Unsure 06/04/2020 10:30 AM MAIL TECHNICIAN documented as of this encounter Miscellaneous Notes * Telephone Encounter - Marija Edgar APRN CNP - 06/09/2020 9:38 AM MAIL TECHNICIAN Those referrals have been placed. The mental health attempted call but patient did not answer. Please have patient check voicemail's or await one further follow-up call. They will call her to set up Holter monitor. Thank you Marija Edgar APRN CNP on 06/09/2020 at 9:40 AM TECHNICIAN documented in this encounter Plan of Treatment Upcoming Encounters Date Type Department Care Team (Late st Contact Info) Description 11/21/2024 7:00 AM CDT Office Visit [address] [address] Maru Man PA-C [address] [place] [address] 12/20/2024 2:30 PM CDT Office Visit [facility] [address] [place] [address] Esha Grimm PA-C [address] [place] [address] 04/16/2025 11:00 AM CDT Virtual Visit [facility] [address] [place] [phone] Meredith Carrera PA-C 909 [place] [address] documented as of this encounter Visit Diagnoses Not on filedocumented in this encounter Additional Health Concerns Infection Onset Date Last Indicated Resolved Time Rule Out COVID-19 07/30/2020 07/30/2020 07/30/2020 7:11 PM MAIL TECHNICIAN Rule Out COVID-19 08/30/2020 08/30/2020 08/30/2020 5:05 PM MAIL TECHNICIAN Rule Out COVID-19 09/24/2020 09/24/2020 09/24/2020 9:24 AM CDT Rule Out COVID-19 11/05/2020 11/05/2020 11/06/2020 1:09 PM CDT Rule Out COVID-19 05/11/2021 05/11/2021 05/13/2021 10:18 AM CDT Rule Out COVID-19 07/13/2021 07/13/2021 07/14/2021 3:04 PM MAIL TECHNICIAN Rule Out COVID-19 07/18/2021 07/18/2021 07/20/2021 1:56 PM MAIL TECHNICIAN COVID-19 07/18/2021 07/18/2021 08/08/2021 11:3 9 PM MAIL TECHNICIAN Rule Out COVID-19 12/18/2021 12/18/2021 12/19/2021 11:34 AM CDT Rule Out COVID-19 02/24/2022 02/24/2022 02/25/2022 1:08 PM CDT Rule Out COVID-19 04/26/2022 04/26/2022 04/26/2022 6:47 AM CDT Rule Out COVID-19 05/17/2022 05/17/2022 05/17/2022 10:20 PM MAIL TECHNICIAN Rule Out COVID-19 06/09/2022 06/09/2022 06/09/2022 9:35 AM MAIL TECHNICIAN COVID-19 06/09/2022 06/09/2022 06/30/2022 11:4 1 PM MAIL TECHNICIAN Rule Out COVID-19 11/10/2022 11/10/2022 11/11/2022 12:17 PM CDT Rule Out COVID-19 03/07/2023 03/07/2023 03/07/2023 1:20 PM CDT Rule Out COVID-19 12/26/2023 12/26/2023 12/26/2023 9:50 AM CDT Rule Out COVID-19 04/09/2024 04/09/2024 04/10/2024 6:48 PM CDT Rule Out COVID-19 10/04/2024 10/04/2024 10/05/2024 9:42 AM CDT Rule Out COVID-19 11/20/2024 11/20/2024 Assessment Noted Time PHQ-9 Depression Total Score: 9 06/04/20 10:35 AM MAIL TECHNICIAN documented as of this encounter Care Teams Vine Fruit Farming Supervisor Relationship Specialty Start Date End Date Marija Edgar APRN CUSTOMER SERVICE OPERATOR [address] [place] [address] PCP - General Nurse Practitioner 04/30/20 04/14/23 Esha Grimm PA-C [address] [place] [address] PCP - General Family Medicine 05/04/23 Lita Oseguera Personal Advocate & Liaison (PAL) 02/28/20 03/27/23 Rakesh Cid PA-C [address] [place] [address] Assigned PCP 03/02/20 06/07/20 Chanelle Mccann APRN CNM [address] [facility] [address] [place] [address] Assigned OBGYN Provider 05/02/2005/09 Lesley Guillermo, CHW Community Health Worker 05/30/2005/12 Kyara De La Fuente, VJ Specialty Rehab/Pre Vocational Counselor Neurology 06/04/20 03/05/21 Marija Edgar APRN CUSTOMER SERVICE OPERATOR [address] [place] [address] Assigned PCP 06/08/20 04/29/23 Mynor Broussard MD 6363 [facility] 500 [place], [place] 618435 Assigned Surgical Provider 06/01/20 11/28/21 Keisha Dotson MD [address] [place], [place] 947585 Assigned Neuroscience Provider 06/04/20 04/01/23 Mary Mejia Financial Resource Worker 08/07/20 08/21/20 Stacey Briones, ALMOND GRINDER Lead Rehab/Pre Vocational Counselor Primary Care - CC 08/11/2012/30 Lesley Guillermo, CHW Community Health Worker 08/11/2010/01 Mary Mejia Financial Resource Worker 09/02/20 10/06/20 Lita Oseguera Personal Advocate & Liaison (PAL) Family Medicine 09/10/20 09/21/20 Galo Burrell MD Assigned Heart and Vascular Provider 10/05/20 04/02/22 Cristina Wood Financial Resource Worker 10/07/20 10/14/20 Lesley Guillermo, [facility] Community Health Worker 10/23/2012/30 Meredith Bedoya Financial Resource Worker 10/23/20 11/23/20 Cristina Wood Financial Resource Worker 02/09/21 02/09/21 [facility] [address] [place] [address] Pharmacist Pharmacist 04/17/21 Rain Galaviz PA-C [address] [place] [address] [address] [place], [place] [phone] Physician Client Care Manager Dermatology 04/28/21 Summer Lara MD [address] [place] [address] 397374 Assigned OBGYN Provider 05/10/2105/23 Summer Lara MD [address] [place] [address] [phone] Assigned OBGYN Provider 05/31/21 2 Summer Lara MD [address] [place] [address] Assigned OBGYN Provider 05/24/2105/30 Tavia Wyatt MD [address] [place] [address] Dermatology 07/14/21 Johnny Murillo MD [facility] [place] [id number] [place] [address] Assigned Musculoskeletal Provider 08/30/21 03/17/22 Erica Farrell APRN CUSTOMER SERVICE OPERATOR [address] [facility] [address] [place] [address] Nurse Practitioner Cardiovascular Disease 09/09/21 [facility] 1440 [facility] [place] [facility] [place] [phone] Pharmacist Pharmacist 09/24/21 09/29/21 Tavia Wyatt MD [address] [place] [address] Assigned Surgical Provider 11/29/21 05/07/22 [facility] [address] [place] [address] Assigned MTM Pharmacist 01/02/22 Rich Barrett MD [facility]3 [place] [address] Physician Ophthalmology 01/21/22 Neil Kent MD 500 [place] [address] Dermatology 02/24/22 Roney Story DPM [address] [facility] [address] [place] [address] Assigned Musculoskeletal Provider 03/20/22 08/13/22 Erica Farrell APRN CUSTOMER SERVICE OPERATOR 1700 [place] [address] Assigned Heart and Vascular Provider 04/03/22 04/16/22 [facility] 3033 [place] [address] Assigned MTM Pharmacist 04/07/22 Jelena David OD [address] [place] [address] Assigned Surgical Provider 05/08/22 10/08/22 Galo Burrell MD Assigned Heart and Vascular Provider 04/17/22 06/11/22 Livan Sharif MD [address] [place] [address] [place] [address] Cardiovascular Disease 05/14/22 Livan Sharif MD [address] [place] [address] [place] [address] Assigned Heart and Vascular Provider 06/12/22 07/23/22 Catherine Cm MD [address] [place] [address] [place] 019595 Cardiovascular Disease 07/21/22 Valery Veronica, PALOMAC [address] [place] [address] Physician Client Care Manager Dermatology 07/21/22 Catherine Cm MD [address] [facility] [address] [place] [address] Assigned Heart and Vascular Provider 07/24/22 11/05/22 Johnny Murillo MD [address] [place] [address] Assigned Musculoskeletal Provider 08/14/22 10/08/22 Brea Quinn APRN CUSTOMER SERVICE OPERATOR [address] [place] [address] 012075 Nurse Practitioner Dermatology 09/21/22 Brea Quinn APRN CUSTOMER SERVICE OPERATOR [address] [place] [address] [place] [address] Assigned Surgical Provider 10/09/22 05/01/24 [place] [address] [address] Assigned Musculoskeletal Provider 10/09/22 05/01/24 Livan Sharif MD [address] [address] [place] 211535 Assigned Heart and Vascular Provider 11/06/22 11/12/22 Catherine Cm MD [address] [place] [address] [place] [address] Assigned Heart and Vascular Provider 11/13/22 05/27/23 Sydnie Martinez, RN Personal Advocate & Liaison (PAL) Family Medicine 03/28/23 07/31/23 Alfonso Renteria MD [address] [facility] [address] [place] [address] Assigned Neuroscience Provider 04/02/23 09/29/24 Cheng Todd PA-C [address] [place] [address] [phone] Assigned PCP 04/30/23 07/15/23 Radha Lomeli APRN CUSTOMER SERVICE OPERATOR [address] [facility] [address] [place] [address] Assigned Heart and Vascular Provider 05/28/23 Jelena David OD [address] [facility] [address] [place] [phone] Ophthalmology 06/15/23 Pao Joseph RN Personal Advocate & Liaison (PAL) Nurse 08/01/23 11/07/23 Esha Grimm PA-C [address] [place] [address] Assigned PCP 07/16/23 Valery Veronica PA-C [address] [place] [address] 850545 Physician Client Care Manager Dermatology 09/19/23 Rey Tay MD [address] [place] [address] 530805 MD Gastroenterology 09/20/23 Rocky Zepeda DO [address] [place] [address] 333615 Physician Gastroenterology 09/20/23 Philip Dumont MD [address] [place] [address] 379645 Physician Ophthalmology 09/22/23 Meredith Carrera PA-C [address] [place] [address] 081945 Assigned Gastroenterology Provider 11/01/23 Neil Kent MD [address] 786080 MD Dermatology 11/02/23 [place] [address] 888147 Neurological Surgery 12/26/23 Audrey Waite PA-C [address] [place] [address] 150965 Physician Client Care Manager Dermatology 02/28/24 Valery Veronica PA-C 305612 [place], [place] [address] Physician Client Care Manager Dermatology 04/10/24 Herminia Hatch MD [facility]5 [place] [address] Assigned Rheumatology Provider 07/02/24 Jelena David OD [address] [place] [address] Ophthalmology 08/30/24 [place] [address] [place] [address] Assigned Neuroscience Provider 09/30/24 Maru Man PA-C [address] [place] [address] Physician Client Care Manager Dermatology 10/03/24 Maru Man PA-C [address] [place] [address] Physician Client Care Manager Dermatology 10/22/24 Jelena David, SONJA [address] [place] [address] Assigned Surgical Provider 10/31/24 documented as of this encounter
--- OUTSIDE RECORDS SUMMARY | 2024-11-21 05:15 | XMS_ITS | Encounter Summary ---
Author Organization [place] Address [address] [place] [address] Care Team Providers Care Harp Maker Name Role Phone Lita Oseguera Unavailable Unavailable Marija Edgar APRN BOAT JOINER HELPER Primary Care Provider + Marija Edgar APRN BOAT JOINER HELPER Unavailable [phone] Keisha Dotson MD Unavailable Diana Desir [facility] Unavailable Rain Galaviz PA-C Unavailable Tavia Wyatt MD Unavailable Erica Farrell APRN BOAT JOINER HELPER Unavailable Rich Barrett MD Unavailable [phone] Neil Kent MD Unavailable Diana Desir [facility] Unavailable [phone] Livan Sharif MD Unavailable Catherine Cm MD Unavailable + Valery Veronica PA-C Unavailable Brea Quinn CADET DECK BOAT JOINER HELPER Unavailable Brea Quinn CADET DECK BOAT JOINER HELPER Unavailable Jose Francisco Johnson MD Unavailable Livan Sharif MD Unavailable Catherine Cm MD Unavailable + Sydnie Martinez RN Unavailable Unavailable Alfonso Renteria MD Unavailable Esha Grimm PA-C Primary Care Provider Cheng Todd PA-C Unavailable [phone] ArmaniRadha APRN BOAT JOINER HELPER Unavailable [phone] Jelena David OD Unavailable [phone] Pao Joseph RN Unavailable Unavailable Esha Grimm PA-C Unavailable [phone] Valery Veronica PA-C Unavailable Rey Tay MD Unavailable Rocky Zepeda DO Unavailable Philip Dumont MD Unavailable [phone] Meredith Carrera PA-C Unavailable [phone] Neil Kent MD Unavailable Juan Pablo Emmanuel MD Unavailable Audrey Waite PA-C Unavailable [phone] Valery Veronica PA-C Unavailable Herminia Hatch MD Unavailable Jelena David OD Unavailable [phone] Juan Pablo Emmanuel MD Unavailable [phone] Maru Man PA-C Unavailable +[phone] Maru Man PA-C Unavailable [phone] Jelena David OD Unavailable [phone] Encounter Details Date Type Department Care Team (Late st Contact Info) Description 11/10/2022 MyC Medical Advice [facility] [address] [place] [phone] Lauren Claudio PA-C [address] [place], [place] [phone] Social History Tobacco Use Types Packs/Day Years [...] How often do you attend adventist or worship serv ices? Never 09/22/2021 Do [...] Recorded PHQ-2 Score 1 10/11/2022 [facility] [...] in a detention (including now)? No 09/22/2021 [place] Depression Scale Answer Date Recorded [place] Depression Score 5 01/14/2021 Last EPDS Self Harm Result Not on file 01/14 Education Answer Date Recorded What is the highest level of school you have completed or the highest degree you have received? 12th grade 08/07/2020 Comments No Sex and Gender Information Value Date Recorded Sex Assigned at Female 03/02/2021 5:45 PM CDT Legal Sex Female 4:13 AM BLOOD BANK ASSISTANT Gender Identity Female 03/02/2021 5:45 PM [...] Description 11/21/2024 7:00 AM CDT Office Visit [facility] [address] [phone] Maru Man PA-C [address] [place] [address] 187420 12/20/2024 2:30 PM CDT Office Visit [facility] [address] [place] [phone] Esha Grimm PA-C [address] [place] [phone] 04/16/2025 11:00 AM CDT Virtual Visit [facility] [address] 4[address] [place] [address] Meredith Carrera PA-C [address] [place] [address] [phone] documented as of this encounter Visit Diagnoses [...] documented as of this encounter Care Teams Harp Maker Relationship Specialty Start Date End Date Marija Edgar APRN BOAT JOINER HELPER PCP - General Nurse Practitioner 04/30/20 04/14/23 Esha Grimm PA-C [address] [place] [phone] PCP - General Family Medicine 05/04/23 Lita Oseguera Personal Advocate & Liaison (PAL) 02/28/20 03/27/23 Marija Edgar APRN BOAT JOINER HELPER Assigned PCP 06/08/20 04/29/23 Keisha Dotson MD 9 [place], [place] 707775 Assigned Neuroscience Provider 06/04/20 04/01/23 Diana Desir [facility] 30[address] [place], [place] [phone] Pharmacist Pharmacist 04/17/21 Rain Galaviz PA-C [address] [place] [address] [address] [place] [address] Physician Tail Trimmer Dermatology 04/28/21 Tavia Wyatt MD [address] [place] [address] [place] [address] Dermatology 07/14/21 Erica Farrell APRN BOAT JOINER HELPER [address] [place] [address] Nurse Practitioner Cardiovascular Disease 09/09/21 Rich Barrett MD [address] [place] 928655 Physician Ophthalmology 01/21/22 Neil Kent MD 500 [place], [place] 428495 Dermatology 02/24/22 [facility] [address]33 [place] [address] Assigned MTM Pharmacist 04/07/22 Livan Sharif MD [address] [place] [address] [place] 879445 Cardiovascular Disease 05/14/22 Catherine Cm MD [address] [place] [address] [place] 249215 Cardiovascular Disease 07/21/22 Valery Veronica PA-C 909 [place], [place] 540205 Physician Tail Trimmer Dermatology 07/21/22 Brea Quinn APRN BOAT JOINER HELPER [address] [place] [address] Nurse Practitioner Dermatology 09/21/22 Brea Quinn APRN BOAT JOINER HELPER 6401 [place], [place] 894762 Assigned Surgical Provider 10/09/22 05/01/24 [place] [address] [address] Assigned Musculoskeletal Provider 10/09/22 05/01/24 Livan Sharif MD 6405 [facility] [address] [place] [address] Assigned Heart and Vascular Provider 11/06/22 11/12/22 Catherine Cm MD 6405 [facility] [address] [place] [address] Assigned Heart and Vascular Provider 11/13/22 05/27/23 Sydnie Martinez RN Personal Advocate & Liaison (PAL) Family Medicine 03/28/23 07/31/23 Alfonso Renteria MD [address] [facility] 200 [place], [place] 450816 Assigned Neuroscience Provider 04/02/23 09/29/24 Cheng Todd PA-C [address] [place] [address] [phone] Assigned PCP 04/30/23 07/15/23 Radha Lomeli APRN BOAT JOINER HELPER 6405 [facility] [address] [place], [place] 191505 Assigned Heart and Vascular Provider 05/28/23 Jelena David OD [address] [facility] [address] [place] [phone] Ophthalmology 06/15/23 Pao Joseph, VJ Personal Advocate & Liaison (PAL) Nurse 08/01/23 11/07/23 Esha Grimm PA-C [address] [place] [phone] Assigned PCP 07/16/23 Valery Veronica PA-C [address] [place] [address] 120105 Physician Tail Trimmer Dermatology 09/19/23 Rey Tay MD [address] [place] [address] 345395 Gastroenterology 09/20/23 Rocky Zepeda DO [address] [place] [address] 129895 Physician Gastroenterology 09/20/23 Philip Dumont MD [address] [place] [address] 711505 Physician Ophthalmology 09/22/23 Meredith Carrera PA-C 909 [place] [address] Assigned Gastroenterology Provider 11/01/23 Neil Kent MD [address] [address] MD Dermatology 11/02/23 [place] [address] [place] 188747 Neurological Surgery 12/26/23 Audrey Waite PA-C 500 [place] [address] Physician Tail Trimmer Dermatology 02/28/24 Valery Veronica PA-C 901905 [address], [place] [address] Physician Tail Trimmer Dermatology 04/10/24 Herminia Hatch MD [facility]5 [place], [place] 64608125 Assigned Rheumatology Provider 07/02/24 Jelena David OD [address] [facility] [place] [address] Ophthalmology 08/30/24 [place] [address] [place] [address] Assigned Neuroscience Provider 09/30/24 Maru Man PA-C [address] [place] [address] Physician Tail Trimmer Dermatology 10/03/24 Maru Man PA-C [address] [place] [address] Physician Tail Trimmer Dermatology 10/22/24 Jelena David OD [address] [place] [address] [address] [place], [place] [address] Assigned Surgical Provider 10/31/24 documented as of this encounter
--- OUTSIDE RECORDS SUMMARY | 2024-11-21 05:15 | XMS_ITS | Encounter Summary ---
Author Organization [facility] Address [address] [place] [address] Care Team Providers Care Weatherization And Housing Inspector Name Role Phone Lita Oseguera Unavailable Unavailable Marija Edgar APRN LEVEL VIAL INSPECTOR AND TESTER Primary Care Provider + Marija Edgar APRN LEVEL VIAL INSPECTOR AND TESTER Unavailable [phone] Mynor Broussard MD Unavailable [phone] Keisha Dotson MD Unavailable [phone] Galo Burrell MD Unavailable Unavailable Diana Desir [facility] Unavailable Rain Galaviz PA-C Unavailable Summer Lara MD Unavailable [phone] Tavia Wyatt MD Unavailable Johnny Murillo MD Unavailable [phone] Erica Farrell APRN LEVEL VIAL INSPECTOR AND TESTER Unavailable Teresita Bean [facility] Unavailable Tavia Wyatt MD Unavailable Diana Desir [facility] Unavailable [phone] Rich Barrett MD Unavailable [phone] Neil Kent MD Unavailable Roney Story DPM Unavailable Erica Farrell CONSULTANT TECHNOLOGY LEVEL VIAL INSPECTOR AND TESTER Unavailable Diana Desir [facility] Unavailable [phone] Jelena David OD Unavailable Galo Burrell MD Unavailable Unavailable Livan Sharif MD Unavailable + Livan Sharif MD Unavailable + Catherine Cm MD Unavailable + Valery Veronica PA-C Unavailable [phone] Catherine Cm MD Unavailable + Johnny Murillo MD Unavailable [phone] Brea Quinn CONSULTANT TECHNOLOGY LEVEL VIAL INSPECTOR AND TESTER Unavailable [phone] Brea Quinn CONSULTANT TECHNOLOGY LEVEL VIAL INSPECTOR AND TESTER Unavailable [phone] Jose Francisco Johnson MD Unavailable Livan Sharif MD Unavailable + IsCatherine hobbs MD Unavailable + Sydnie Martinez RN Unavailable Unavailable Alfonso Renteria MD Unavailable Esha Grimm-C Primary Care Provider Cheng Todd PA-C Unavailable Radha Lomeli CONSULTANT TECHNOLOGY LEVEL VIAL INSPECTOR AND TESTER Unavailable [phone] Jelena David OD Unavailable [phone] Pao Joseph RN Unavailable Unavailable Esha Grimm-C Unavailable JeremíasValery damon PA-C Unavailable [phone] Rey Tay MD Unavailable Rocky Zepeda DO Unavailable Philip Dumont MD Unavailable [phone] Meredith Carrera PA-C Unavailable [phone] Neil Kent MD Unavailable Juan Pablo Emmanuel MD Unavailable [phone] Audrey Waite PA-C Unavailable [phone] Valery Veronica PA-C Unavailable [phone] Herminia Hatch MD Unavailable Jelena David OD Unavailable Juan Pablo Emmanuel MD Unavailable [phone] Maru ManC Unavailable [phone] Maru ManC Unavailable + [phone] Jelena David OD Unavailable Encounter Details Date Type Department Care Team (Late st Contact Info) Description 08/04/[address] [address] [facility] Social History Tobacco Use Types Packs/Day Years [...] Score 0 04/02/2021 [facility] - Occupational Stress Questionnaire Answer [...] a senior living (including now)? No 08/11/2020 [place] Depression Scale Answer Date Recorded [place] [...] PM CDT Legal Sex Female 4:13 AM CHICLE GRINDER FEEDER Gender Identity Female 03/02/2021 5:45 PM CDT Sexual Orientation Straight 02/28/2020 12 :51 AM CDT COVID-19 Exposure Response Date Recorded In the last month, have you been in contact with someone who was confirmed or suspected to have Coronavirus / COVID-19? No / Unsure 08/03/2021 2:24 PM CHICLE GRINDER FEEDER documented as of this encounter Plan of Treatment Upcoming Encounters Date Type Department Care Team ([facility] st Contact Info) Description 11/21/2024 7:00 AM CDT Office Visit [facility] [address] [phone] Maru Man PA-C [address] [address] 12/20/2024 2:30 PM CDT Office Visit [facility] [address] [place] [address] Esha Grimm PA-C [address] [place] [address] 04/16/2025 11:00 AM CDT Virtual Visit [facility] [address] 4th [place] [phone] Meredith Carrera PA-C [address] [place] [address] documented as of this encounter Visit Diagnoses Not on filedocumented in this encounter Additional Health Concerns Infection Onset Date Last Indicated Resolved Time COVID-19 07/18/2021 07/18/2021 08/08/2021 11:3 9 PM CHICLE GRINDER FEEDER Rule Out COVID-19 12/18/2021 12/18/2021 12/19/2021 11:34 AM CDT Rule Out COVID-19 02/24/2022 02/24/2022 02/25/2022 1:08 PM CDT Rule Out COVID-19 04/26/2022 04/26/2022 04/26/2022 6:47 AM CDT Rule Out COVID-19 05/17/2022 05/17/2022 05/17/2022 10:20 PM CHICLE GRINDER FEEDER Rule Out COVID-19 06/09/2022 06/09/2022 06/09/2022 9:35 AM CHICLE GRINDER FEEDER COVID-19 06/09/2022 06/09/2022 06/30/2022 11:4 1 PM CHICLE GRINDER FEEDER Rule Out COVID-19 11/10/2022 11/10/2022 11/11/2022 [...] documented as of this encounter Care Teams Weatherization And Housing Inspector Relationship Specialty Start Date End Date Marija Edgar APRN LEVEL VIAL INSPECTOR AND TESTER PCP - General Nurse Practitioner 04/30/20 04/14/23 Esha Grimm PA-C [address] [place] [phone] PCP - General Family Medicine 05/04/23 Lita Oseguera Personal Advocate & Liaison (PAL) 02/28/20 03/27/23 Marija Edgar APRN LEVEL VIAL INSPECTOR AND TESTER Assigned PCP 06/08/20 04/29/23 Mynor Broussard MD [address] [address] Assigned Surgical Provider 06/01/20 11/28/21 Keisha Dotson MD 909 [place] [address] Assigned Neuroscience Provider 06/04/20 04/01/23 Galo Burrell MD Assigned Heart and Vascular Provider 10/05/20 04/02/22 Diana Desir, [facility] [address] [place] [address] Pharmacist Pharmacist 04/17/21 Rain Galaviz PA-C [address] [place] [address] [address] [facility] [place] [address] Physician Regulatory Affairs Spec Dermatology 04/28/21 Summer Lara MD [address] [place] [address] 416074 Assigned OBGYN Provider 05/31/21 Tavia Wyatt MD [address] [place] [address] 144454 Dermatology 07/14/21 Johnny Murillo MD [address] [place], [place] 773014 Assigned Musculoskeletal Provider 08/30/21 03/17/22 Erica Farrell APRN LEVEL VIAL INSPECTOR AND TESTER 6405 [facility] [address] [place], [place] [phone] Nurse Practitioner Cardiovascular Disease 09/09/21 Teresita Bean, [facility] [address] [place] [phone] Pharmacist Pharmacist 09/24/21 09/29/21 Tavia Wyatt MD [address] [place], [place] 371610 Assigned Surgical Provider 11/29/21 05/07/22 Diana Desir, [facility] 3033 [place] [address] Assigned MTM Pharmacist 01/02/22 Rich Barrett MD 3033 [place] [address] Physician Ophthalmology 01/21/22 Neil Kent MD 500 [place], [place] 541945 Dermatology 02/24/22 Roney Story DPM [address] [facility] [address] [place], [place] 336847 Assigned Musculoskeletal Provider 03/20/22 08/13/22 Erica Farrell APRN LEVEL VIAL INSPECTOR AND TESTER 1700 [place] [address] Assigned Heart and Vascular Provider 04/03/22 04/16/22 Diana Desir, [facility] [address] [place] [address] Assigned MTM Pharmacist 04/07/22 Jeelna David OD 3305 [facility] [place] [address] Assigned Surgical Provider 05/08/22 10/08/22 Galo Burrell MD Assigned Heart and Vascular Provider 04/17/22 06/11/22 Livan Sharif MD 6405 [facility] [address] [place] [address] Cardiovascular Disease 05/14/22 Livan Sharif MD [address] [place] [address] Assigned Heart and Vascular Provider 06/12/22 07/23/22 Catherine Cm MD 6405 [facility] [address] [place] [address] Cardiovascular Disease 07/21/22 Valery Veronica, PAUcheC [address] [place] [address] Physician Regulatory Affairs Spec Dermatology 07/21/22 Catherine Cm MD [address] [facility] [address] [address] [place] [address] Assigned Heart and Vascular Provider 07/24/22 11/05/22 Johnny Murillo MD [address] [place] [address] Assigned Musculoskeletal Provider 08/14/22 10/08/22 Brea Quinn APRN LEVEL VIAL INSPECTOR AND TESTER [address] [place] [address] Nurse Practitioner Dermatology 09/21/22 Brea Quinn APRN LEVEL VIAL INSPECTOR AND TESTER [address] [place] [address] [place] [address] Assigned Surgical Provider 10/09/22 05/01/24 [place] [address] [place] [address] Assigned Musculoskeletal Provider 10/09/22 05/01/24 Livan Sharif MD [address] [place] [address] Assigned Heart and Vascular Provider 11/06/22 11/12/22 Catherine Cm MD [address] [place] [address] Assigned Heart and Vascular Provider 11/13/22 05/27/23 Sydnie Martinez RN Personal Advocate & Liaison (PAL) Family Medicine 03/28/23 07/31/23 Alfonso Renteria MD 5775 [facility] 200 [place] [address] Assigned Neuroscience Provider 04/02/23 09/29/24 Cheng Todd PA-C [address] [place] [address] [id number] Assigned PCP 04/30/23 07/15/23 Radha Lomeli, ARLENE LEVEL VIAL INSPECTOR AND TESTER [address] [place] [address] Assigned Heart and Vascular Provider 05/28/23 Jelena David OD 3305 [facility] [place] [address] Ophthalmology 06/15/23 Pao Joseph, VJ Personal Advocate & Liaison (PAL) Nurse 08/01/23 11/07/23 Esha Grimm PA-C [address] [place] [address] Assigned PCP 07/16/23 Valery Veronica PA-C [address] [place] [address] 993675 Physician Regulatory Affairs Spec Dermatology 09/19/23 Rey Tay MD [address] [place] [address] 878865 MD Gastroenterology 09/20/23 Rocky Zepeda DO [address] [place] [address] 400505 Physician Gastroenterology 09/20/23 Philip Dumont MD [address] [place] [address] 403155 Physician Ophthalmology 09/22/23 Meredith Carrera PA-C [address] [place] [address] Assigned Gastroenterology Provider 11/01/23 Neil Kent MD [address] [address] Dermatology 11/02/23 [place] [address] [place] [address] Neurological Surgery 12/26/23 Audrey [place] PA-C [address] [place] [address] Physician Regulatory Affairs Spec Dermatology 02/28/24 Valery Veronica PA-C [id number] [facility] [address] Physician Regulatory Affairs Spec Dermatology 04/10/24 Herminia Hatch MD [address] [place] [address] Assigned Rheumatology Provider 07/02/24 Jelena David OD [address] [place] [address] [place] [address] Ophthalmology 08/30/24 [place] [address] [place] [address] Assigned Neuroscience Provider 09/30/24 Maru Man PA-C [address] [place] [address] Physician Regulatory Affairs Spec Dermatology 10/03/24 Maru Man PA-C [address] [place] [address] Physician Regulatory Affairs Spec Dermatology 10/22/24 Jelena David OD [address] [place] [address] [place] [address] Assigned Surgical Provider 10/31/24 documented as of this encounter
--- OUTSIDE RECORDS SUMMARY | 2024-11-21 05:15 | XMS_ITS | Encounter Summary ---
Author Organization [facility] Address [address] [place] [address] Care Team Providers Care X Ray Technician Name Role Phone Lita Oseguera Unavailable Unavailable Marija Edgar APRN PROJECT GEOLOGIST Primary Care Provider + Marija Edgar APRN PROJECT GEOLOGIST Unavailable Mynor Broussard MD Unavailable [phone] Keisha Dotson MD Unavailable [phone] Galo Burrell MD Unavailable Unavailable Diana Desir [facility] Unavailable Rain Galaviz PA-C Unavailable Summer Lara MD Unavailable [phone] Tavia Wyatt MD Unavailable Johnny Murillo MD Unavailable [phone] Erica Farrell APRN PROJECT GEOLOGIST Unavailable Teresita Bean [facility] Unavailable [phone] Tavia Wyatt MD Unavailable Diana Desir [facility] Unavailable Rich Barrett MD Unavailable [phone] Neil Kent MD Unavailable Roney Story DPM Unavailable Erica Farrell FLUID POWER MECHANIC PROJECT GEOLOGIST Unavailable Diana Desir [facility] Unavailable [phone] Jelena David OD Unavailable Galo Burrell MD Unavailable Unavailable Livan Sharif MD Unavailable + Livan Sharif MD Unavailable + Catherine Cm MD Unavailable + Valery Veronica PA-C Unavailable [phone] Catherine Cm MD Unavailable + Johnny Murillo MD Unavailable [phone] Brea Quinn FLUID POWER MECHANIC PROJECT GEOLOGIST Unavailable [phone] Brea Quinn FLUID POWER MECHANIC PROJECT GEOLOGIST Unavailable [phone] Jose Francisco Johnson MD Unavailable Livan Sharif MD Unavailable + IsCatherine hobbs MD Unavailable + Sydnie Martinez RN Unavailable Unavailable Alfonso Renteria MD Unavailable Esha Grimm-C Primary Care Provider Cheng Todd PA-C Unavailable Radha Lomeli FLUID POWER MECHANIC PROJECT GEOLOGIST Unavailable [phone] Jelena David OD Unavailable Pao Joseph RN Unavailable Unavailable Esha Grimm-C Unavailable [phone] JeremíasValery damon PA-C Unavailable [phone] Rey Tay MD Unavailable Rocky Zepeda DO Unavailable Philip Dumont MD Unavailable [phone] Meredith Carrera PA-C Unavailable [phone] Neil Kent MD Unavailable Juan Pablo Emmanuel MD Unavailable Audrey Waite PA-C Unavailable [phone] Valery Veronica PA-C Unavailable [phone] Herminia Hatch MD Unavailable Jelena David OD Unavailable [phone] Juan Pablo Emmanuel MD Unavailable [phone] Maru ManC Unavailable [phone] Maru ManC Unavailable [phone] Jelena David OD Unavailable Encounter Details Date Type Department Care Team (Late st Contact Info) Description 06/25/2021 [facility] Advice [address] [address] Diana Desir, [facility] 3033 [place], [place] [phone] Psoriasis (Primary Dx) Social History Tobacco Use [...] Answer Date Recorded PHQ-2 Score 0 04/02/2021 [facility] [...] in a usp (including now)? No 08/11/2020 [place] Depression Scale Answer Date Recorded [place] Depression Score 5 01/14/2021 Last EPDS Self Harm Result Not on file 01/14 Education Answer Date Recorded What is the highest level of school you have completed or the highest degree you have received? 12th grade 08/07/2020 Comments No Sex and Gender Information Value Date Recorded Sex Assigned at Female 03/02/2021 5:45 PM CDT Legal Sex Female 4:13 AM SIDE HEMMER Gender Identity Female 03/02/2021 5:45 PM CDT Sexual Orientation Straight 02/28/2020 12 :51 AM CDT COVID-19 Exposure Response Date Recorded In the last month, have you been in contact with someone who was confirmed or suspected to have Coronavirus / COVID-19? No / Unsure 06/26/2021 8:28 AM SIDE HEMMER documented as of this encounter Miscellaneous Notes * Telephone Encounter - Diana Desir, [facility] - 06/26/2021 9:53 AM CST Discussed with PCP and verbal approval for betamethasone cream. Diana Desir, PharmD Medication Therapy Management Provider, [facility] Pager: [phone] HEMMER documented in this encounter Plan of Treatment Upcoming Encounters Date Type Department Care Team (Late st Contact Info) Description 11/21/2024 7:00 AM CDT Office Visit [facility] [address] [phone] Maru Man PA-C [address] 856330 12/20/2024 2:30 PM CDT Office Visit [facility] [address] [place] [phone] Esha Grimm PA-C [address] [place] [address] 04/16/2025 11:00 AM CDT Virtual Visit [facility] Gastro[facility]ology Clinic [address] [phone] Meredith Carrera PA-C [address] [place] [address] 263215 documented as of this encounter Visit Diagnoses Diagnosis Psoriasis- Primary Other psoriasis documented in this encounter Additional Health Concerns Infection Onset Date Last Indicated Resolved Time Rule Out COVID-19 07/13/2021 07/13/2021 07/14/2021 3:04 PM SIDE HEMMER Rule Out COVID-19 07/18/2021 07/18/2021 07/20/2021 1:56 PM SIDE HEMMER COVID-19 07/18/2021 07/18/2021 08/08/2021 11:3 9 PM SIDE HEMMER Rule Out COVID-19 12/18/2021 12/18/2021 12/19/2021 11:34 AM CDT Rule Out COVID-19 02/24/2022 02/24/2022 02/25/2022 1:08 PM CDT Rule Out COVID-19 04/26/2022 04/26/2022 04/26/2022 6:47 AM CDT Rule Out COVID-19 05/17/2022 05/17/2022 05/17/2022 10:20 PM SIDE HEMMER Rule Out COVID-19 06/09/2022 06/09/2022 06/09/2022 9:35 AM SIDE HEMMER COVID-19 06/09/2022 06/09/2022 06/30/2022 11:4 1 PM SIDE HEMMER Rule Out COVID-19 11/10/2022 11/10/2022 11/11/2022 12:17 [...] of this encounter Care Teams X Ray Technician Relationship Specialty Start Date End Date Marija Edgar APRN PROJECT GEOLOGIST PCP - General Nurse Practitioner 04/30/20 04/14/23 Esha Grimm PA-C [address] [place] [address] PCP - General Family Medicine 05/04/23 Lita Oseguera Personal Advocate & Liaison (PAL) 02/28/20 03/27/23 Marija Edgar APRN PROJECT GEOLOGIST Assigned PCP 06/08/20 04/29/23 Mynor Broussard MD 6363 [facility] 500 [place] [address] Assigned Surgical Provider 06/01/20 11/28/21 Keisha Dotson MD 909 [place] [address] Assigned Neuroscience Provider 06/04/20 04/01/23 Galo Burrell MD Assigned Heart and Vascular Provider 10/05/20 04/02/22 [facility] [address] [place] [address] Pharmacist Pharmacist 04/17/21 Rain Galaviz PA-C [address] [place] [address] [address] [place] [address] Physician Bike Mechanic Dermatology 04/28/21 Summer Lara MD [address] [place] [address] 241964 Assigned OBGYN Provider 05/31/21 2 Tavia Wyatt MD [address] [place] [address] [phone] Dermatology 07/14/21 Johnny Murillo MD [facility] [address] [place], [place] [address] Assigned Musculoskeletal Provider 08/30/21 03/17/22 Erica Farrell APRN PROJECT GEOLOGIST 6405 [facility] [address] [place] [address] Nurse Practitioner Cardiovascular Disease 09/09/21 Teresita Bean, [facility] [address] [place] [phone] Pharmacist Pharmacist 09/24/21 09/29/21 Tavia Wyatt MD [address] [place] [address] Assigned Surgical Provider 11/29/21 05/07/22 [facility] 3033 [place] [address] Assigned MTM Pharmacist 01/02/22 Rich Barrett MD [address] [place] [address] Physician Ophthalmology 01/21/22 Neil Kent MD 500 [place], [place] 630895 Dermatology 02/24/22 Roney Story DPM [address] [facility] [address] [place], [place] 9[address] Assigned Musculoskeletal Provider 03/20/22 08/13/22 Erica Farrell APRN PROJECT GEOLOGIST 1700 [place] [address] Assigned Heart and Vascular Provider 04/03/22 04/16/22 Diana Desir, [facility] 3033 [place] [address] Assigned MTM Pharmacist 04/07/22 Jelena David OD [address] [facility] [place] [address] Assigned Surgical Provider 05/08/22 10/08/22 Galo Burrell MD Assigned Heart and Vascular Provider 04/17/22 06/11/22 Livan Sharif MD [address] [place] [address] Cardiovascular Disease 05/14/22 Livan Sharif MD [address] [place] [address] Assigned Heart and Vascular Provider 06/12/22 07/23/22 Catherine Cm MD [address] [place] 10[address]95 Cardiovascular Disease 07/21/22 Valery Veronica PAUcheC 909 [place] [address] Physician Bike Mechanic Dermatology 07/21/22 Catherine Cm MD [address] [place] [address] Assigned Heart and Vascular Provider 07/24/22 11/05/22 Johnny Murillo MD [address] [place] [address] Assigned Musculoskeletal Provider 08/14/22 10/08/22 Brea Quinn APRN PROJECT GEOLOGIST 500 [place] [address] Nurse Practitioner Dermatology 09/21/22 Brea Quinn APRN PROJECT GEOLOGIST [facility] [place] 770322 Assigned Surgical Provider 10/09/22 05/01/24 [place] [address] [facility] 300 [place] [address] Assigned Musculoskeletal Provider 10/09/22 05/01/24 Livan Sharif MD 6405 [facility] [address] [place] 218305 Assigned Heart and Vascular Provider 11/06/22 11/12/22 Catherine Cm MD 6405 [facility] [address] [place] [address] Assigned Heart and Vascular Provider 11/13/22 05/27/23 Sydnie Martinez, VJ Personal Advocate & Liaison (PAL) Family Medicine 03/28/23 07/31/23 Alfonso Renteria MD 5775 [facility] 200 [place] [address] Assigned Neuroscience Provider 04/02/23 09/29/24 Cheng Todd PA-C [address] [place] [address] [phone] Assigned PCP 04/30/23 07/15/23 Radha Lomeli APRN PROJECT GEOLOGIST 6405 [facility] [address] [place], [place] 804765 Assigned Heart and Vascular Provider 05/28/23 Jelena David OD [address] [facility] [place] [address] MD Ophthalmology 06/15/23 Pao Joseph, VJ Personal Advocate & Liaison (PAL) Nurse 08/01/23 11/07/23 Esha Grimm PA-C [address] [place] [phone] Assigned PCP 07/16/23 Valery Veronica PA-C [address] [place] [address] 686955 Physician Bike Mechanic Dermatology 09/19/23 Rey Tay MD [address] [place] [address] 794325 Gastroenterology 09/20/23 Rocky Zepeda DO [address] [place] [address] 275565 Physician Gastroenterology 09/20/23 Philip Dumont MD [address] [place] [address] 341495 Physician Ophthalmology 09/22/23 Meredith Carrera PA-C 909 [place] [address] Assigned Gastroenterology Provider 11/01/23 Neil Kent MD [address] [place] [address] Dermatology 11/02/23 [place] [address] [place] [address] Neurological Surgery 12/26/23 Audrey [place] PA-C 500 [place] [address] Physician Bike Mechanic Dermatology 02/28/24 Valery Veronica PA-C 302848 [place] [address] Physician Bike Mechanic Dermatology 04/10/24 Herminia Hatch MD [facility]5 [place], [place] [phone] Assigned Rheumatology Provider 07/02/24 Jelena David OD [address] [place] [address] [place] [address] Ophthalmology 08/30/24 [place] [address] [place] [address] Assigned Neuroscience Provider 09/30/24 Maru Man PA-C [address] [address] Physician Bike Mechanic Dermatology 10/03/24 Mrau Man PA-C [address] [place] [address] Physician Bike Mechanic Dermatology 10/22/24 [place] [address] [place] [address] [place] [address] Assigned Surgical Provider 10/31/24 documented as of this encounter
--- OUTSIDE RECORDS SUMMARY | 2024-11-21 05:15 | XMS_ITS | Encounter Summary ---
Author Organization [place] Address [address] [place] [address] Care Team Providers Care Paint Spray Inspector Name Role Phone Lita Oseguera Unavailable Unavailable Marija Edgar APRN DIE WELDER Primary Care Provider + Marija Edgar APRN DIE WELDER Unavailable Mynor Broussard MD Unavailable [phone] Keisha Dotson MD Unavailable [phone] Galo Burrell MD Unavailable Unavailable Diana Desir [facility] Unavailable [phone] Rain Galaviz PA-C Unavailable Summer Lara MD Unavailable [phone] Tavia Wyatt MD Unavailable Johnny Murillo MD Unavailable Erica Farrell APRN DIE WELDER Unavailable Teresita Bean [facility] Unavailable [phone] Tavia Wyatt MD Unavailable Diana Desir [facility] Unavailable [phone] Rich Barrett MD Unavailable [phone] Neil Kent MD Unavailable Roney Story DPM Unavailable Erica Farrell MILL RECORDER DIE WELDER Unavailable Diana Desir [facility] Unavailable [phone] Jelena David OD Unavailable Galo Burrell MD Unavailable Unavailable Livan Sharif MD Unavailable + Livan Sharif MD Unavailable + Catherine Cm MD Unavailable + Valery Veronica PA-C Unavailable [phone] Catherine Cm MD Unavailable + Johnny Murillo MD Unavailable [phone] Brea Quinn MILL RECORDER DIE WELDER Unavailable [phone] Brea Quinn MILL RECORDER DIE WELDER Unavailable [phone] Jose Francisco Johnson MD Unavailable Livan Sharif MD Unavailable + IsCatherine hobbs MD Unavailable + Sydnie Martinez RN Unavailable Unavailable Alfonso Renteria MD Unavailable Esha Grimm-C Primary Care Provider Cheng Todd PA-C Unavailable Radha Lomeli MILL RECORDER DIE WELDER Unavailable [phone] Jelena David OD Unavailable Pao Joseph RN Unavailable Unavailable Esha Grimm-C Unavailable [phone] JeremíasValery damon PA-C Unavailable [phone] Rey Tay MD Unavailable Rocky Zepeda DO Unavailable Philip Dumont MD Unavailable [phone] Meredith Carrera-C Unavailable [phone] Neil Kent MD Unavailable Juan Pablo Emmanuel MD Unavailable [phone] Audrey Waite PA-C Unavailable [phone] Valery Veronica-C Unavailable [phone] Herminia Hatch MD Unavailable Jelena David OD Unavailable Juan Pablo Emmanuel MD Unavailable [phone] Maru Man PA-C Unavailable [phone] Maru Man PA-C Unavailable [phone] Encounter Details Date Type Department Care Team [...] Answer Date Recorded PHQ-2 Score 1 [facility] - [facility] [...] exercise at this level? 20 min 05/07/2024 [place] Depression Scale Answer Date Recorded [place] Depression Score 5 01/14/2021 Last EPDS Self [...] CDT Legal Sex Female 4:13 AM TECHNICAL SERVICES REPRESENTATIVE Gender Identity Female 03/02/2021 5:45 [...] 11/21/2024 7:00 AM CDT Office Visit [address] [address] Maru Man PA-C [address] [place] [address] 12/20/2024 2:30 PM CDT Office Visit [facility] [address] [place] [address] Esha Grimm PA-C [address] [place] [address] 04/16/2025 11:00 AM CDT Virtual Visit [facility] [address] [place] [phone] Meredith Carrera PA-C [address] [place] [address] documented as of this encounter Visit Diagnoses Not on filedocumented in this encounter Additional Health Concerns Infection Onset Date Last Indicated Resolved Time COVID-19 07/18/2021 07/18/2021 08/08/2021 11:3 9 PM TECHNICAL SERVICES REPRESENTATIVE Rule Out COVID-19 12/18/2021 12/18/2021 12/19/2021 11:34 AM CDT Rule Out COVID-19 02/24/2022 02/24/2022 02/25/2022 1:08 PM CDT Rule Out COVID-19 04/26/2022 04/26/2022 04/26/2022 6:47 AM CDT Rule Out COVID-19 05/17/2022 05/17/2022 05/17/2022 10:20 PM TECHNICAL SERVICES REPRESENTATIVE Rule Out COVID-19 06/09/2022 06/09/2022 06/09/2022 9:35 AM TECHNICAL SERVICES REPRESENTATIVE COVID-19 06/09/2022 06/09/2022 06/30/2022 11:4 1 PM TECHNICAL SERVICES REPRESENTATIVE Rule Out COVID-19 11/10/2022 11/10/2022 [...] of this encounter Care Teams Paint Spray Inspector Relationship Specialty Start Date End Date Marija Edgar APRN DIE WELDER PCP - General Nurse Practitioner 04/30/20 04/14/23 Esha Grimm PA-C [address] [place] [phone] PCP - General Family Medicine 05/04/23 Liat Oseguera Personal Advocate & Liaison (PAL) 02/28/20 03/27/23 Marija Edgar APRN DIE WELDER Assigned PCP 06/08/20 04/29/23 Mynor Broussard MD [address] [address] Assigned Surgical Provider 06/01/20 11/28/21 Keisha Dotson MD [address] [place] [address] Assigned Neuroscience Provider 06/04/20 04/01/23 Galo Burrell MD Assigned Heart and Vascular Provider 10/05/20 04/02/22 Diana Desir, [facility] [address] [place] [address] Pharmacist Pharmacist 04/17/21 Rani Galaviz PA-C [address] [place] [address] [place] [address] Physician Farmer General Dermatology 04/28/21 Summer Lara MD [address] [place] [address] 437244 Assigned OBGYN Provider 05/31/21 Tavia Wyatt MD [address] [place] [address] [phone] Dermatology 07/14/21 Johnny Murillo MD [address] [place], [place] [address] Assigned Musculoskeletal Provider 08/30/21 03/17/22 Erica Farrell APRN DIE WELDER [address] [facility] [address] [place], [place] [address] Nurse Practitioner Cardiovascular Disease 09/09/21 Teresita Bean, [facility] [address] [place] [phone] Pharmacist Pharmacist 09/24/21 09/29/21 Tavia Wyatt MD [address] [place], [place] [phone] Assigned Surgical Provider 11/29/21 05/07/22 Diana Desir, [facility] [address] [place] [address] Assigned MTM Pharmacist 01/02/22 Rich Barrett MD 3033 [place] [address] Physician Ophthalmology 01/21/22 Neil Kent MD 500 [place] [address] Dermatology 02/24/22 Roney Story DPM [address] [facility] [address] [place] [address] Assigned Musculoskeletal Provider 03/20/22 08/13/22 Erica Farrell APRN DIE WELDER [address] [place] [address] Assigned Heart and Vascular Provider 04/03/22 04/16/22 Diana Desir, [facility] [address] [place] [address] Assigned MTM Pharmacist 04/07/22 Jelena David OD [address] [facility] [place] [address] Assigned Surgical Provider 05/08/22 10/08/22 Galo Burrell MD Assigned Heart and Vascular Provider 04/17/22 06/11/22 Livan Sharif MD [address] [facility] [address] [place] [address] Cardiovascular Disease 05/14/22 Livan Sharif MD [address] [place] [address] Assigned Heart and Vascular Provider 06/12/22 07/23/22 Catherine Cm MD [address] [place] [address] Cardiovascular Disease 07/21/22 Valery Veronica, PA-C [address] [place] [address] Physician Farmer General Dermatology 07/21/22 Catherine Cm MD [address] [facility] [address] [place] [address] Assigned Heart and Vascular Provider 07/24/22 11/05/22 Johnny Murillo MD [address] [place] [address] [phone] Assigned Musculoskeletal Provider 08/14/22 10/08/22 Brea Quinn APRN DIE WELDER [address] [place] [address] Nurse Practitioner Dermatology 09/21/22 Brea Quinn APRN DIE WELDER [address] [place] [address] [place] [address] Assigned Surgical Provider 10/09/22 05/01/24 [place] [address] [place] [place] [address] Assigned Musculoskeletal Provider 10/09/22 05/01/24 Livan Sharif MD [address] [place] [address] Assigned Heart and Vascular Provider 11/06/22 11/12/22 Catherine Cm MD [address] [place] [address] Assigned Heart and Vascular Provider 11/13/22 05/27/23 Sydnie Martinez RN Personal Advocate & Liaison (PAL) Family Medicine 03/28/23 07/31/23 Alfonso Renteria MD [address]75 [facility] 200 [place] [address] Assigned Neuroscience Provider 04/02/23 09/29/24 Cheng Todd PA-C [address] [place] [address] [id number] Assigned PCP 04/30/23 07/15/23 Radha Lomeli, MILL RECORDER DIE WELDER [address] [place] [address] Assigned Heart and Vascular Provider 05/28/23 Jelena David OD [address] [facility] [place] [address] Ophthalmology 06/15/23 Pao Joseph, VJ Personal Advocate & Liaison (PAL) Nurse 08/01/23 11/07/23 Esha Grimm PA-C [address] [place] [phone] Assigned PCP 07/16/23 Valery Veronica PA-C [address] [place] [address] 294835 Physician Farmer General Dermatology 09/19/23 Rey Tay MD [address] [place] [address] 706395 MD Gastroenterology 09/20/23 Rocky Zepeda DO [address] [place] [address] 319075 Physician Gastroenterology 09/20/23 Philip Dumont MD [address] [place] [address] 530925 Physician Ophthalmology 09/22/23 Meredith Carrera PA-C [address] [place] [address] Assigned Gastroenterology Provider 11/01/23 Neil Kent MD [address] [address] Dermatology 11/02/23 [place] [address] [place] [address] Neurological Surgery 12/26/23 Audrey Waite PA-C [address] [place] [address] Physician Farmer General Dermatology 02/28/24 Valery Veronica PA-C [address] [place] [address] Physician Farmer General Dermatology 04/10/24 Herminia Hatch MD [address] [place] [address] Assigned Rheumatology Provider 07/02/24 Jelena David OD [address] [facility] [place] [address] Ophthalmology 08/30/24 [place] [address] [place] [address] Assigned Neuroscience Provider 09/30/24 Maru Man PA-C [address] [place] [address] Physician Farmer General Dermatology 10/03/24 Maru Man PA-C [address] [place] [place] [address] Physician Farmer General Dermatology 10/22/24 documented as of this encounter
--- OUTSIDE RECORDS SUMMARY | 2024-11-21 05:15 | XMS_ITS | Encounter Summary ---
Author Organization [place] Address [address] [place] [address] Care Team Providers Care Magnetic Observer Name Role Phone Lita Oseguera Unavailable Unavailable Marija Edgar APRN AUDIO VISUAL ENGINEER Primary Care Provider + Marija Edgar APRN AUDIO VISUAL ENGINEER Unavailable Keisha Dotson MD Unavailable Diana Desir [facility] Unavailable Rain Galaviz PA-C Unavailable Tavia Wyatt MD Unavailable Erica Farrell APRN AUDIO VISUAL ENGINEER Unavailable Rich Barrett MD Unavailable [phone] Neil [place] MD Unavailable Diana Desir [facility] Unavailable Livan Sharif MD Unavailable Catherine Cm MD Unavailable + Valery Veronica PA-C Unavailable [phone] Catherine Cm MD Unavailable + Brea Quinn TRANSIT PLANNER AUDIO VISUAL ENGINEER Unavailable [phone] Brea Quinn TRANSIT PLANNER AUDIO VISUAL ENGINEER Unavailable [phone] Jose Francisco Johnson MD Unavailable Livan Sharif MD Unavailable ChivoraynaCatherine boothe MD Unavailable + Sydnie Martinez RN Unavailable Unavailable Alfonso Renteria MD Unavailable Esha Grimm PA-C Primary Care Provider Cheng Todd PA-C Unavailable [phone] Radha Lomeli TRANSIT PLANNER AUDIO VISUAL ENGINEER Unavailable [phone] Jelena David OD Unavailable [phone] Pao Joseph RN Unavailable Unavailable Esha Grimm PA-C Unavailable [phone] Valery Veronica PA-C Unavailable Rey Tay [...] [phone] Maru Man PA-C Unavailable [phone] Jelena Davide OD Unavailable Encounter Details Date Type Department Care Team (Late st Contact Info) Description 10/22/2022 MyC Medical Advice [facility] [address] [place] [phone] Lauren Claudio PABaldo [address] [place] [address] Social History Tobacco Use Types [...] How often do you attend sikh or buddhist serv ices? Never 09/22/2021 Do [...] PHQ-2 Score 1 10/11/2022 [facility] of Occupat ional Health - Occupational Stress [...] a long term (including now)? No 09/22/2021 [place] Depression Scale Answer Date Recorded [place] Depression Score 5 01/14/2021 Last EPDS Self Harm Result Not on file 01/14 Education Answer Date Recorded What is the highest level of school you have completed or the highest degree you have received? 12th grade 08/07/2020 Comments No Sex and Gender Information Value Date Recorded Sex Assigned at Female 03/02/2021 5:45 PM CDT Legal Sex Female 4:13 AM LACQUER SIZER Gender Identity Female 03/02/2021 5:45 PM [...] Description 11/21/2024 7:00 AM CDT Office Visit [facility] [address] [phone] Maru Man PA-C [address] [place] [address]7610 12/20/2024 2:30 PM CDT Office Visit [address] [address] Esha Grimm PA-C [address] [place] [address] 04/16/2025 11:00 AM CDT Virtual Visit [facility] [address] 4th [place] [phone] Meredith Carrera PA-C [address] [place] [address] [phone] documented as of this encounter Visit Diagnoses [...] documented as of this encounter Care Teams Magnetic Observer Relationship Specialty Start Date End Date Marija Edgar APRN AUDIO VISUAL ENGINEER PCP - General Nurse Practitioner 04/30/20 04/14/23 Esha Grimm PA-C [address] [place] [phone] PCP - General Family Medicine 05/04/23 Lita Oseguera Personal Advocate & Liaison (PAL) 02/28/20 03/27/23 Marija Edgar APRN AUDIO VISUAL ENGINEER Assigned PCP 06/08/20 04/29/23 Keisha Dotson MD 909 [place] [address] Assigned Neuroscience Provider 06/04/20 04/01/23 Diana Desir [facility] 3033 [place] [address] Pharmacist Pharmacist 04/17/21 Rain Galaviz PA-C [address] [place] [address] [address] [place] [address] Physician Captain Waiter/Waitress Dermatology 04/28/21 Tavia Wyatt MD [address] [place] [address] [address] [facility] [address] Dermatology 07/14/21 Erica Farrell APRN AUDIO VISUAL ENGINEER [address] [place] [address] Nurse Practitioner Cardiovascular Disease 09/09/21 Rich Barrett MD [address] [place] [address] Physician Ophthalmology 01/21/22 Neil Kent MD 500 [place], [place] 667015 Dermatology 02/24/22 [facility] 3033 [place] [address] Assigned MTM Pharmacist 04/07/22 Livan Sharif MD [address] [place] [address] Cardiovascular Disease 05/14/22 Catherine Cm MD [address] [place] [address] Cardiovascular Disease 07/21/22 Valery Veronica PA-C 909 [place] [address] Physician Captain Waiter/Waitress Dermatology 07/21/22 Catherine Cm MD [address] [place] [address] Assigned Heart and Vascular Provider 07/24/22 11/05/22 Brea [place] APRN AUDIO VISUAL ENGINEER [address] [place] [address] 828545 Nurse Practitioner Dermatology 09/21/22 Brea Quinn APRN AUDIO VISUAL ENGINEER [address] [place] [address] Assigned Surgical Provider 10/09/22 05/01/24 [place] [address] [place] [address] Assigned Musculoskeletal Provider 10/09/22 05/01/24 Livan Sharif MD [address] [place] [address] Assigned Heart and Vascular Provider 11/06/22 11/12/22 Catherine Cm MD [address] [place] [address] Assigned Heart and Vascular Provider 11/13/22 05/27/23 Sydnie Martinez RN Personal Advocate & Liaison (PAL) Family Medicine 03/28/23 07/31/23 Alfonso Renteria MD [address] [facility] [address] [place] [address] Assigned Neuroscience Provider 04/02/23 09/29/24 Cheng Todd PA-C [address] [place] [address] Assigned PCP 04/30/23 07/15/23 Radha Lomeli APRN AUDIO VISUAL ENGINEER [address] [facility] [address] [place] [address] Assigned Heart and Vascular Provider 05/28/23 Jelena David OD [address] [facility] [place] [address] Ophthalmology 06/15/23 Pao Joseph, VJ Personal Advocate & Liaison (PAL) Nurse 08/01/23 11/07/23 Esha Grimm PA-C [address] [place] [address] Assigned PCP 07/16/23 Valery Veronica PA-C [address] [place] [address] 386785 Physician Captain Waiter/Waitress Dermatology 09/19/23 Rey Tay MD 9 [place] [address] Gastroenterology 09/20/23 Rocky Zepeda DO [address] [place] [address] Physician Gastroenterology 09/20/23 Philip Dumont MD [address] [place] [address] Physician Ophthalmology 09/22/23 Meredith Carrera PA-C [address] [place] [address] Assigned Gastroenterology Provider 11/01/23 Neil Kent MD [address] [address] MD Dermatology 11/02/23 Juan [place] [address] [place] [address] [address] Neurological Surgery 12/26/23 Audrey Waite PA-C 500 [place] [address] Physician Captain Waiter/Waitress Dermatology 02/28/24 Valery Veronica PA-C [address] [place] [address] Physician Captain Waiter/Waitress Dermatology 04/10/24 Herminia Hatch MD [address] [place] [address] [id number] Assigned Rheumatology Provider 07/02/24 [place] [address] [place] [address] [place] [address] Ophthalmology 08/30/24 [place] [address] [address] [place] [address] Assigned Neuroscience Provider 09/30/24 Maru Man PA-C [address] [place] [address] Physician Captain Waiter/Waitress Dermatology 10/03/24 Maru Man PA-C [address] [place] [address] Physician Captain Waiter/Waitress Dermatology 10/22/24 Jelena David OD [address] [facility] [place] [address] Assigned Surgical Provider 10/31/24 documented as of this encounter
--- OUTSIDE RECORDS SUMMARY | 2024-11-21 05:15 | XMS_ITS | Encounter Summary ---
Author Organization [facility] Address [address] [place] [address] 15[address] Care Team Providers Care Building Mover Name Role Phone Lita Oseguera Unavailable Unavailable Marija Edgar APRN SET KEY DRIVER Primary Care Provider + Marija Edgar APRN SET KEY DRIVER Unavailable Keisha Dotson MD Unavailable Diana Desir [facility] Unavailable Rain Galaviz PA-C Unavailable Tavia Wyatt MD Unavailable Erica Farrell APRN SET KEY DRIVER Unavailable Rich Barrett MD Unavailable [phone] Neil Kent MD Unavailable Diana Desir [facility] Unavailable Livan Sharif MD Unavailable Catherine Cm MD Unavailable + Valery Veronica PA-C Unavailable Catherine Cm MD Unavailable + Brea Quinn TAKE UP SUPERVISOR SET KEY DRIVER Unavailable Brea Quinn TAKE UP SUPERVISOR SET KEY DRIVER Unavailable [phone] Jose Francisco Johnson MD Unavailable Livan Sharif MD Unavailable ChivoraynaCatherine boothe MD Unavailable + Sydnie Martinez RN Unavailable Unavailable Alfonso Renteria MD Unavailable Esha Grimm PA-C Primary Care Provider Cheng Todd PA-C Unavailable [phone] Radha Lomeli TAKE UP SUPERVISOR SET KEY DRIVER Unavailable [phone] Jelena David OD Unavailable [phone] Pao Joseph RN Unavailable Unavailable Esha Grimm PA-C Unavailable [phone] Valery Veronica PA-C Unavailable Rey Tay MD Unavailable Rocky Zepeda DO Unavailable Philip Dumont MD Unavailable [phone] Meredith Carrera PA-C Unavailable [phone] Neil Kent MD Unavailable Juan Pablo Emmanuel MD Unavailable Audrey Waite PA-C Unavailable [phone] Valery Veronica PA-C Unavailable Herminia Hatch MD Unavailable Jelena David OD Unavailable [phone] Juan Pablo Emmanuel MD Unavailable Maru Man PA-C Unavailable [phone] Maru Man PA-C Unavailable [phone] Jelena Davide OD Unavailable [phone] Reason for Visit * Reason Onset Date Comments MyChart Communication 10/27/2022 Encounter Details Date Type Department Care Team (Late st Contact Info) Description 10/27/2022 MyC Medical Advice M [facility] [address] [facility] [place] [phone] Brea Quinn, TAKE UP SUPERVISOR [facility] [address] [facility] [place] [id number] MyChart Communication (/) Social History Tobacco Use [...] do you attend jehovah's witness or yazidism serv ices? Never 09/22/2021 Do [...] Answer Date Recorded PHQ-2 Score 1 10/11/2022 [facility] - [...] in a snf (including now)? No 09/22/2021 [place]nell[place] Depression Scale Answer Date Recorded [place] Depression Score 5 01/14/2021 Last EPDS Self Harm Result Not on file 01/14 Education Answer Date Recorded What is the highest level of school you have completed or the highest degree you have received? 12th grade 08/07/2020 Comments No Sex and Gender Information Value Date Recorded Sex Assigned at Female 03/02/2021 5:45 PM CDT Legal Sex Female 4:13 AM INSTRUMENT LENS GRINDER APPRENTICE Gender Identity Female 03/02/2021 5:45 PM [...] Letha Driver RN [facility] Gloria Alvarenga [phone] documented in this encounter Plan of Treatment Upcoming Encounters Date Type Department Care Team (Late st Contact Info) Description 11/21/2024 7:00 AM CDT Office Visit [facility] [address] [phone] Maru Man PA-C [address] [place] [address] 12/20/2024 2:30 PM CDT Office Visit [facility] [address] [place] [phone] Esha Grimm PA-C [address] [place] [phone] 04/16/2025 11:00 AM CDT Virtual Visit [facility] [address] [place] [phone] Meredith Carrera PA-C [address] [place] [address] documented as of this encounter Visit Diagnoses [...] as of this encounter Care Teams Building Mover Relationship Specialty Start Date End Date Marija Edgar APRN CNP PCP - General Nurse Practitioner 04/30/20 04/14/23 Esha Grimm PA-C [address] [place] [phone] PCP - General Family Medicine 05/04/23 Lita Oseguera Personal Advocate & Liaison (PAL) 02/28/20 03/27/23 Marija Edgar APRN SET KEY DRIVER Assigned PCP 06/08/20 04/29/23 Keisha Dotson MD 909 [place] [address] Assigned Neuroscience Provider 06/04/20 04/01/23 Diana Desir, [facility] [address] [place], [place] 988386 Pharmacist Pharmacist 04/17/21 Rain Galaviz PA-C [address] [place] [address] [address] [place] [address] Physician Engine Cleaner Dermatology 04/28/21 Tavia Wyatt MD [address] [place] [address] [address] [place] [address] Dermatology 07/14/21 Erica Farrell APRN SET KEY DRIVER [address] [place] [address] Nurse Practitioner Cardiovascular Disease 09/09/21 Rich Barrett MD [address] [place] [address] Physician Ophthalmology 01/21/22 Neil Kent MD 500 [place] [address] Dermatology 02/24/22 Diana Desir, [facility] [address] [facility] [place] [address] Assigned MTM Pharmacist 04/07/22 Livan Sharif MD [address] [place] [address] Cardiovascular Disease 05/14/22 Catherine Cm MD [address] [place] 707565 Cardiovascular Disease 07/21/22 Valery Veronica, PA-C [address] [place] [address] 842405 Physician Engine Cleaner Dermatology 07/21/22 Catherine Cm MD [address] [place] [address] Assigned Heart and Vascular Provider 07/24/22 11/05/22 Brea Quinn APRN SET KEY DRIVER [address] [place] [address] 207015 Nurse Practitioner Dermatology 09/21/22 Brea Quinn APRN SET KEY DRIVER [address] [place] [address] [place] [phone] Assigned Surgical Provider 10/09/22 05/01/24 [place] [address] [facility] [address] Assigned Musculoskeletal Provider 10/09/22 05/01/24 Livan Sharif MD [address] [place], [place] 032405 Assigned Heart and Vascular Provider 11/06/22 11/12/22 Catherine Cm MD [address] [place] [address] Assigned Heart and Vascular Provider 11/13/22 05/27/23 Sydnie Martinez RN Personal Advocate & Liaison (PAL) Family Medicine 03/28/23 07/31/23 Alfonso Renteria MD [address] [facility] 200 [place] [address] Assigned Neuroscience Provider 04/02/23 09/29/24 Cheng Todd PA-C [address] [place] [address] [phone] Assigned PCP 04/30/23 07/15/23 Radha Lomeli, TAKE UP SUPERVISOR SET KEY DRIVER [address] [place] [address] Assigned Heart and Vascular Provider 05/28/23 Jelena David OD [address] [facility] [place] [address] Ophthalmology 06/15/23 Pao Joseph, VJ Personal Advocate & Liaison (PAL) Nurse 08/01/23 11/07/23 Esha Grimm PAUcheC [address] [place] [phone] Assigned PCP 07/16/23 Valery Veronica PA-C [address] [place] [address] Physician Engine Cleaner Dermatology 09/19/23 Rey Tay MD [address] [place] [address] [phone] MD Gastroenterology 09/20/23 Rocky Zepeda DO [address] [place] [address] 803855 Physician Gastroenterology 09/20/23 Philip Dumont MD [address] [place] [address] 469395 Physician Ophthalmology 09/22/23 Meredith Carrera PA-C [address] [place] [address] 565905 Assigned Gastroenterology Provider 11/01/23 Neil Kent MD [address] [address] Dermatology 11/02/23 [place] [address] [place] [address] Neurological Surgery 12/26/23 Audrey Waite PA-C [address] [place] [address] Physician Engine Cleaner Dermatology 02/28/24 Valery Veronica PA-C [address] [place] [address] Physician Engine Cleaner Dermatology 04/10/24 Herminia Hatch MD [address] [place] [address] Assigned Rheumatology Provider 07/02/24 Jelena David OD [address] [place] [address] [place] [address] Ophthalmology 08/30/24 [place] [address] [place] [address] Assigned Neuroscience Provider 09/30/24 Maru Man PA-C [address] [place] [address] Physician Engine Cleaner Dermatology 10/03/24 Maru Man PA-C [address] [place] [address] Physician Engine Cleaner Dermatology 10/22/24 Jelena David OD [address] [place] [address] [place] [address] Assigned Surgical Provider 10/31/24 documented as of this encounter
--- OUTSIDE RECORDS SUMMARY | 2024-11-21 05:15 | XMS_ITS | Encounter Summary ---
Author Organization [facility] Address [address] [place] [address] 21607 Care Team Providers Care Massotherapist Name Role Phone Lita Oseguera Unavailable Unavailable Marija Edgar APRN FASHION ILLUSTRATOR Primary Care Provider + Marija Edgar APRN FASHION ILLUSTRATOR Unavailable Mynor Broussard MD Unavailable [phone] Keisha Dotson MD Unavailable Galo Burrell MD Unavailable Unavailable Diana Desir [facility] Unavailable Rain Galaviz PA-C Unavailable [phone] Summer Lara MD Unavailable [phone] Tavia Wyatt MD Unavailable Johnny Murillo MD Unavailable Erica Farrell APRN FASHION ILLUSTRATOR Unavailable Teresita Bean [facility] Unavailable [phone] Tavia Wyatt MD Unavailable Diana Desir [facility] Unavailable Rich Barrett MD Unavailable [phone] Neil Kent MD Unavailable Roney Story DPM Unavailable Erica Farrell KEYBOARDING TEACHER FASHION ILLUSTRATOR Unavailable Diana Desir [facility] Unavailable [phone] Jelena David OD Unavailable Galo Burrell MD Unavailable Unavailable Livan Sharif MD Unavailable + Livan Sharif MD Unavailable + Catherine Cm MD Unavailable + Valery Veronica PA-C Unavailable [phone] Catherine Cm MD Unavailable + Johnny Murlilo MD Unavailable [phone] Brea Quinn KEYBOARDING TEACHER FASHION ILLUSTRATOR Unavailable [phone] Brea Quinn KEYBOARDING TEACHER FASHION ILLUSTRATOR Unavailable [phone] Jose Francisco Johnson MD Unavailable Livan Sharif MD Unavailable + IsCatherine hobbs MD Unavailable + Sydnie Martinez RN Unavailable Unavailable Alfonso Renteria MD Unavailable Esha Grimm-C Primary Care Provider Cheng Todd PA-C Unavailable Radha Lomeli KEYBOARDING TEACHER FASHION ILLUSTRATOR Unavailable [phone] Jelena David OD Unavailable Pao Joseph RN Unavailable Unavailable Ehsa Grimm-C Unavailable JeremíasValery damon PA-C Unavailable [phone] Rey Tay MD Unavailable Rocky Zepeda DO Unavailable Philip Dumont MD Unavailable [phone] Meredith Carrera PA-C Unavailable [phone] Neil Kent MD Unavailable Juan Pablo Emmanuel MD Unavailable [phone] Audrey Waite PA-C Unavailable [phone] Valery Veronica PA-C Unavailable [phone] Herminia Hatch MD Unavailable Jelena David OD Unavailable Juan Pablo Emmanuel MD Unavailable [phone] Maru ManC Unavailable [phone] Maru ManC Unavailable [phone] Jelena David OD Unavailable Encounter Details Date Type Department Care Team (Late st Contact Info) Description 06/03/2021 [facility] Medical Advice [address] [phone] Diana Desir, [facility] [address] [place], [place] [phone] Social History Tobacco Use Types Packs/Day Years [...] in a residential (including now)? No 08/11/2020 [place] Depression Scale Answer Date Recorded [place] [...] PM CDT Legal Sex Female 4:13 AM INORGANIC CHEMIST Gender Identity Female 03/02/2021 5:45 PM CDT [...] 11/21/2024 7:00 AM CDT Office Visit [address] [address] Maru Man PA-C [address] [place] [address] 12/20/2024 2:30 PM CDT Office Visit [facility] [address] [place] [address] Esha Grimm PA-C [address] [place] [address] 04/16/2025 11:00 AM CDT Virtual Visit [facility] [place] 0[address]69 [facility] 4th [place] [phone] Meredith Carrera PA-C [address] [place] [address] documented as of this encounter Visit Diagnoses Not on filedocumented in this encounter Additional Health Concerns Infection Onset Date Last Indicated Resolved Time Rule Out COVID-19 07/13/2021 07/13/2021 07/14/2021 3:04 PM INORGANIC CHEMIST Rule Out COVID-19 07/18/2021 07/18/2021 07/20/2021 1:56 PM INORGANIC CHEMIST COVID-19 07/18/2021 07/18/2021 08/08/2021 11:3 9 PM INORGANIC CHEMIST Rule Out COVID-19 12/18/2021 12/18/2021 12/19/2021 11:34 AM CDT Rule Out COVID-19 02/24/2022 02/24/2022 02/25/2022 1:08 PM CDT Rule Out COVID-19 04/26/2022 04/26/2022 04/26/2022 6:47 AM CDT Rule Out COVID-19 05/17/2022 05/17/2022 05/17/2022 10:20 PM INORGANIC CHEMIST Rule Out COVID-19 06/09/2022 06/09/2022 06/09/2022 9:35 AM INORGANIC CHEMIST COVID-19 06/09/2022 06/09/2022 06/30/2022 11:4 1 PM INORGANIC CHEMIST Rule Out COVID-19 11/10/2022 11/10/2022 11/11/2022 12:17 [...] documented as of this encounter Care Teams Massotherapist Relationship Specialty Start Date End Date Marija Edgar APRN FASHION ILLUSTRATOR PCP - General Nurse Practitioner 04/30/20 04/14/23 Esha Grimm PA-C [address] [place] [phone] PCP - General Family Medicine 05/04/23 Lita Oseguera Personal Advocate & Liaison (PAL) 02/28/20 03/27/23 Marija Edgar APRN FASHION ILLUSTRATOR Assigned PCP 06/08/20 04/29/23 Mynor Broussard MD [address] [address] Assigned Surgical Provider 06/01/20 11/28/21 Keisha Dotson MD 909 [place] [address] Assigned Neuroscience Provider 06/04/20 04/01/23 Galo Burrell MD Assigned Heart and Vascular Provider 10/05/20 04/02/22 Diana Desir, [facility] [address] [place] [address] Pharmacist Pharmacist 04/17/21 Rain Galaviz PA-C [address] [place] [address] [place] [address] Physician Engineering Team Supervisor Dermatology 04/28/21 Summer Lara MD [address] [place] [address] Assigned OBGYN Provider 05/31/21 2 Tavia Wyatt MD [address] [place] [address] 996874 Dermatology 07/14/21 Johnny Murillo MD [facility] [address] [address] Assigned Musculoskeletal Provider 08/30/21 03/17/22 Erica Farrell APRN FASHION ILLUSTRATOR 6405 [facility] [address] [place] [address] Nurse Practitioner Cardiovascular Disease 09/09/21 Teresita Bean, [facility] [address] [place] [address] Pharmacist Pharmacist 09/24/21 09/29/21 Tavia Wyatt MD [address] [place] [address] Assigned Surgical Provider 11/29/21 05/07/22 Diana Desir, [facility] [address] [place] [address] Assigned MTM Pharmacist 01/02/22 Rich Barrett MD [address] [place] [address] Physician Ophthalmology 01/21/22 Neil Kent MD 500 [place] [address] Dermatology 02/24/22 Roney Story DPM [address] [facility] 300 [place] [address] Assigned Musculoskeletal Provider 03/20/22 08/13/22 Erica Farrell APRN FASHION ILLUSTRATOR [facility] [place] [address] Assigned Heart and Vascular Provider 04/03/22 04/16/22 Diana Desir, [facility] [address] [place] [address] Assigned MTM Pharmacist 04/07/22 [place] [address] [place] [address] [place] [address] Assigned Surgical Provider 05/08/22 10/08/22 Galo Burrell MD Assigned Heart and Vascular Provider 04/17/22 06/11/22 Livan Sharif MD [address] [place] 793065 Cardiovascular Disease 05/14/22 Livan Sharif MD [address] [place] 927695 Assigned Heart and Vascular Provider 06/12/22 07/23/22 Catherine Cm MD [address] [place] 437455 Cardiovascular Disease 07/21/22 Valery Veronica, PAUcheC [address] [place] [address] 715985 Physician Engineering Team Supervisor Dermatology 07/21/22 Catherine Cm MD [address] [place] 816345 Assigned Heart and Vascular Provider 07/24/22 11/05/22 Johnny Murillo MD [address] 177894 Assigned Musculoskeletal Provider 08/14/22 10/08/22 Brea Quinn APRN FASHION ILLUSTRATOR [address] [place] [address] 948475 Nurse Practitioner Dermatology 09/21/22 Brea Quinn APRN FASHION ILLUSTRATOR 6401 [facility] [place] [address] Assigned Surgical Provider 10/09/22 05/01/24 [place] [address] [place] [address] Assigned Musculoskeletal Provider 10/09/22 05/01/24 Livan Sharif MD [address] [place] 8858200 [place] [address] Assigned Heart and Vascular Provider 11/06/22 11/12/22 Catherine Cm MD [address] [place] [address] [place] [address] Assigned Heart and Vascular Provider 11/13/22 05/27/23 Sydnie Martinez RN Personal Advocate & Liaison (PAL) Family Medicine 03/28/23 07/31/23 Alfonso Renteria MD 5775 [facility] 200 [place] [address] Assigned Neuroscience Provider 04/02/23 09/29/24 Cheng Todd PA-C [address] [place] [address] Assigned PCP 04/30/23 07/15/23 Radha Lomeli APRN FASHION ILLUSTRATOR [facility] [facility] [place] [address] Assigned Heart and Vascular Provider 05/28/23 Tommy Davidmao TempletonSONJA owods [address] [facility] [place] [address] MD Ophthalmology 06/15/23 Pao Joseph, RN Personal Advocate & Liaison (PAL) Nurse 08/01/23 11/07/23 Esha Grimm PA-C [address] [place] [phone] Assigned PCP 07/16/23 Valery Veronica PA-C [address] [place] [address] 435975 Physician Engineering Team Supervisor Dermatology 09/19/23 Rey Tay MD [address] [place] [address] MD Gastroenterology 09/20/23 Rocky Zepeda DO [address] [place] [address] 534565 Physician Gastroenterology 09/20/23 Philip Dumont MD [address] [place] [address] 538165 Physician Ophthalmology 09/22/23 Meredith Carrera PA-C [address] [place] [address] 209715 Assigned Gastroenterology Provider 11/01/23 Neil Kent MD [address] 829410 Dermatology 11/02/23 [place] [address] [place] [address] Neurological Surgery 12/26/23 Audrey Waite PA-C 500 [place] [address] Physician Engineering Team Supervisor Dermatology 02/28/24 Valery Veronica PA-C 073598 [place], [place] [address] Physician Engineering Team Supervisor Dermatology 04/10/24 Herminia Hatch MD [address] [place] [address] [id number] Assigned Rheumatology Provider 07/02/24 Jelena David OD [address] [place] [address] [place] [address] Ophthalmology 08/30/24 [place] [address] [place] [address] Assigned Neuroscience Provider 09/30/24 Maru Man PA-C [address] [place] [address] Physician Engineering Team Supervisor Dermatology 10/03/24 Maru Man PA-C [address] [place] [address] Physician Engineering Team Supervisor Dermatology 10/22/24 Jelena David OD [facility] [place] [address] Assigned Surgical Provider 10/31/24 documented as of this encounter
--- OUTSIDE RECORDS SUMMARY | 2024-11-21 05:15 | XMS_ITS | Encounter Summary ---
Author Organization [facility] Address [address] [place] [address] Care Team Providers Care Jump Iron Machine Presser Name Role Phone Lita Oseguera Unavailable Unavailable Marija Edgar APRN JEWISH THOUGHT PROFESSOR Primary Care Provider + Marija Edgar APRN JEWISH THOUGHT PROFESSOR Unavailable Mynor Broussard MD Unavailable [phone] Keisha Dotson MD Unavailable Galo Burrell MD Unavailable Unavailable Diana Desir [facility] Unavailable Rain Galaviz PA-C Unavailable [phone] Summer Lara MD Unavailable Tavia Wyatt MD Unavailable Johnny Murillo MD Unavailable [phone] Erica Farrell APRN JEWISH THOUGHT PROFESSOR Unavailable Teresita Bean [facility] Unavailable [phone] Tavia Wyatt MD Unavailable Diana Desir [facility] Unavailable Rich Barrett MD Unavailable [phone] Neil Kent MD Unavailable Roney Story DPM Unavailable Erica Farrell BENEFITS CONSULTANT JEWISH THOUGHT PROFESSOR Unavailable Diana Desir [facility] Unavailable [phone] Jelena David OD Unavailable Galo Burrell MD Unavailable Unavailable Livan Sharif MD Unavailable + Livan Sharif MD Unavailable + Catherine Cm MD Unavailable + Valery Veronica PA-C Unavailable [phone] Catherine Cm MD Unavailable + Johnny Murillo MD Unavailable [phone] Brea Quinn BENEFITS CONSULTANT JEWISH THOUGHT PROFESSOR Unavailable [phone] Brea Quinn BENEFITS CONSULTANT JEWISH THOUGHT PROFESSOR Unavailable [phone] Jose Francisco Johnson MD Unavailable Livan Sharif MD Unavailable + IsCatherine hobbs MD Unavailable + Sydnie Martinez RN Unavailable Unavailable Alfonso Renteria MD Unavailable Esha Grimm-C Primary Care Provider Cheng Todd PA-C Unavailable Radha Lomeli BENEFITS CONSULTANT JEWISH THOUGHT PROFESSOR Unavailable [phone] Jelena David OD Unavailable Pao Joseph RN Unavailable Unavailable Esha Grimm-C Unavailable [phone] JeremíasValery damon PA-C Unavailable [phone] Rey Tay MD Unavailable Rocky Zepeda DO Unavailable Philip Dumont MD Unavailable [phone] Meredith Carrera PA-C Unavailable [phone] Neil Kent MD Unavailable Juan Pablo Emmanuel MD Unavailable [phone] Audrey Waite PA-C Unavailable [phone] Valery Veronica PA-C Unavailable [phone] Herminia Hatch MD Unavailable Jelena David OD Unavailable Juan Pablo Emmanuel MD Unavailable [phone] Maru ManC Unavailable [phone] Maru ManC Unavailable [phone] Jelena David OD Unavailable Encounter Details Date Type Department Care Team (Late st Contact Info) Description 07/14/2021 MyC Medical Advice [address] [address] Lauren Gan, RN Social History [...] you attend [facility] or [facility]? More than 4 [...] Score 0 04/02/2021 [facility] - Occupational [...] in a assisted (including now)? No 08/11/2020 [place] Depression Scale Answer Date Recorded [place] Depression Score 5 01/14/2021 Last EPDS Self Harm Result Not on file 01/14 Education Answer Date Recorded What is the highest level of school you have completed or the highest degree you have received? 12th grade 08/07/2020 Comments No Sex and Gender Information Value Date Recorded Sex Assigned at Female 03/02/2021 5:45 PM CDT Legal Sex Female 4:13 AM FUEL EFFICIENT AUTOMOBILE DESIGNER Gender Identity Female 03/02/2021 5:45 PM CDT Sexual Orientation Straight 02/28/2020 12 :51 AM CDT COVID-19 Exposure Response Date Recorded In the last month, have you been in contact with someone who was confirmed or suspected to have Coronavirus / COVID-19? Yes 07/15/2021 12:15 PM FUEL EFFICIENT AUTOMOBILE DESIGNER documented as of this encounter Plan of Treatment Upcoming Encounters Date Type Department Care Team ([facility] st Contact Info) Description 11/21/2024 7:00 AM CDT Office Visit [facility] [address] [phone] Maru Man PA-C [address] [address] 12/20/2024 2:30 PM CDT Office Visit [facility] [address] [place] [address] Esha Grimm PA-C [address] [place] [address] 04/16/2025 11:00 AM CDT Virtual Visit [facility] [address] 4th [place] [phone] Meredith Carrera PA-C [address] [place] [address] documented as of this encounter Visit Diagnoses Not on filedocumented in this encounter Additional Health Concerns Infection Onset Date Last Indicated Resolved Time Rule Out COVID-19 07/13/2021 07/13/2021 07/14/2021 3:04 PM FUEL EFFICIENT AUTOMOBILE DESIGNER Rule Out COVID-19 07/18/2021 07/18/2021 07/20/2021 1:56 PM FUEL EFFICIENT AUTOMOBILE DESIGNER COVID-19 07/18/2021 07/18/2021 08/08/2021 11:3 9 PM FUEL EFFICIENT AUTOMOBILE DESIGNER Rule Out COVID-19 12/18/2021 12/18/2021 12/19/2021 11:34 AM CDT Rule Out COVID-19 02/24/2022 02/24/2022 02/25/2022 1:08 PM CDT Rule Out COVID-19 04/26/2022 04/26/2022 04/26/2022 6:47 AM CDT Rule Out COVID-19 05/17/2022 05/17/2022 05/17/2022 10:20 PM FUEL EFFICIENT AUTOMOBILE DESIGNER Rule Out COVID-19 06/09/2022 06/09/2022 06/09/2022 9:35 AM FUEL EFFICIENT AUTOMOBILE DESIGNER COVID-19 06/09/2022 06/09/2022 06/30/2022 11:4 1 PM FUEL EFFICIENT AUTOMOBILE DESIGNER Rule Out COVID-19 11/10/2022 11/10/2022 [...] documented as of this encounter Care Teams Jump Iron Machine Presser Relationship Specialty Start Date End Date Marija Edgar APRN JEWISH THOUGHT PROFESSOR PCP - General Nurse Practitioner 04/30/20 04/14/23 Esha Grimm PA-C [address] [place] [phone] PCP - General Family Medicine 05/04/23 Lita Oseguera Personal Advocate & Liaison (PAL) 02/28/20 03/27/23 Marija Edgar APRN JEWISH THOUGHT PROFESSOR Assigned PCP 06/08/20 04/29/23 Mynor Broussard MD [address] [address] Assigned Surgical Provider 06/01/20 11/28/21 Keisha Dotson MD 9 [place] [address] Assigned Neuroscience Provider 06/04/20 04/01/23 Galo Burrell MD Assigned Heart and Vascular Provider 10/05/20 04/02/22 Diana Desir, [facility] [address] [place] [address] Pharmacist Pharmacist 04/17/21 Rain Galaviz PA-C [address] [place] [address] [address] [place] [address] Physician Baker Dermatology 04/28/21 Summer Lara MD [address] [place], [place] 382514 Assigned OBGYN Provider 05/31/21 2 Tavia Wyatt MD [address] [place], [place] [phone] Dermatology 07/14/21 Johnny Murillo MD [address] [place], [place] 9[address] Assigned Musculoskeletal Provider 08/30/21 03/17/22 Erica Farrell APRN JEWISH THOUGHT PROFESSOR [address] [facility] [address] [place] [phone] Nurse Practitioner Cardiovascular Disease 09/09/21 Teresita Bean, [facility] [address] [place] [address] Pharmacist Pharmacist 09/24/21 09/29/21 Tavia Wyatt MD [address] [place] [address] Assigned Surgical Provider 11/29/21 05/07/22 Diana Desir, [facility] 3033 [place] [address] Assigned MTM Pharmacist 01/02/22 Rich Barrett MD [address] [place] [address] 935976 Physician Ophthalmology 01/21/22 Neil Kent MD 500 [place], [place] [address]75 Dermatology 02/24/22 Roney Story DPM [address] [facility] [address] [place] [address] Assigned Musculoskeletal Provider 03/20/22 08/13/22 Erica Farrell APRN JEWISH THOUGHT PROFESSOR 1700 [place] [address] Assigned Heart and Vascular Provider 04/03/22 04/16/22 Diana Desir, [facility] [address] [place] [address] Assigned MTM Pharmacist 04/07/22 Jelena David OD [address] [facility] [place] [address] Assigned Surgical Provider 05/08/22 10/08/22 Galo Burrell MD Assigned Heart and Vascular Provider 04/17/22 06/11/22 Livan Sharif MD [address] [facility] [address] [place] [address] Cardiovascular Disease 05/14/22 Livan Sharif MD [address] [facility] [address] [place] [address] Assigned Heart and Vascular Provider 06/12/22 07/23/22 Catherine Cm MD [address] [facility] [address] [place] [address] Cardiovascular Disease 07/21/22 Valery Veronica, PA-C [address] [place] [address] Physician Baker Dermatology 07/21/22 Catherine Cm MD [address] [facility] [address] [place] [address] Assigned Heart and Vascular Provider 07/24/22 11/05/22 Johnny Murillo MD [address] [place] [address] Assigned Musculoskeletal Provider 08/14/22 10/08/22 Brea Quinn APRN JEWISH THOUGHT PROFESSOR [address] [place] [address] Nurse Practitioner Dermatology 09/21/22 Brea Quinn APRN JEWISH THOUGHT PROFESSOR [address] [place], [place] [address], [place] [address] Assigned Surgical Provider 10/09/22 05/01/24 [place] [address] [place] [address] Assigned Musculoskeletal Provider 10/09/22 05/01/24 Livan Sharif MD [address] [facility] [address] [place] [address] Assigned Heart and Vascular Provider 11/06/22 11/12/22 Catherine Cm MD [address] [facility] [place] [address] [place] [address] Assigned Heart and Vascular Provider 11/13/22 05/27/23 Sydnie Martinez RN Personal Advocate & Liaison (PAL) Family Medicine 03/28/23 07/31/23 Alfonso Renteria MD 5775 [facility] 200 [place] [address] Assigned Neuroscience Provider 04/02/23 09/29/24 Cheng Todd PA-C [address] [place] [address] Assigned PCP 04/30/23 07/15/23 Radha Lomeli APRN JEWISH THOUGHT PROFESSOR [address] [place] [address] Assigned Heart and Vascular Provider 05/28/23 Jelena David OD [address] [facility] [place] [address] MD Ophthalmology 06/15/23 Pao Joseph, RN Personal Advocate & Liaison (PAL) Nurse 08/01/23 11/07/23 Esha Grimm PA-C [address] [place] [phone] Assigned PCP 07/16/23 Valery Veronica PA-C [address] [place] [address] 731195 Physician Baker Dermatology 09/19/23 Rey Tay MD [address] [place] [address] 107485 MD Gastroenterology 09/20/23 Rocky Zepeda DO [address] [place] [address] 276865 Physician Gastroenterology 09/20/23 Philip Dumont MD [address] [place] [address] 703375 Physician Ophthalmology 09/22/23 Meredith Carrera PA-C [address] [place] [address] 926035 Assigned Gastroenterology Provider 11/01/23 Neil Kent MD [address] [place] [address] 529590 Dermatology 11/02/23 [place] [address] [place] [address] Neurological Surgery 12/26/23 Audrey Waite PA-C 500 [place] [address] Physician Baker Dermatology 02/28/24 Valery Veronica PA-C [address] [place] [address] Physician Baker Dermatology 04/10/24 Herminia Hatch MD [address] [place] [address] Assigned Rheumatology Provider 07/02/24 Jelena David OD [address] [place] [address] [place] [address] Ophthalmology 08/30/24 [place] [address] [place] [address] Assigned Neuroscience Provider 09/30/24 Maru Man PA-C [address] [place] [address] Physician Baker Dermatology 10/03/24 Maru Man PA-C [address] [place] [address] Physician Baker Dermatology 10/22/24 Jelena David OD [address] [place] [address] [place] [address] Assigned Surgical Provider 10/31/24 documented as of this encounter
--- OUTSIDE RECORDS SUMMARY | 2024-11-21 05:15 | XMS_ITS | Encounter Summary ---
Author Organization [facility] Address [address] [place] [address] Care Team Providers Care Supervisor Matrix Name Role Phone Lita Oseguera Unavailable Unavailable Marija Edgar EXTRUDER OPERATOR MULTIPLE LODE MINER BLASTING Primary Care Provider + Chanelle Mccann EXTRUDER OPERATOR MULTIPLE CNM Unavailab le Marija Edgar APRN LODE MINER BLASTING Unavailable [phone] Mynor Broussard MD Unavailable [phone] Keisha Dotson MD Unavailable [phone] Galo Burrell MD Unavailable Unavailable Diana Desir [facility] Unavailable [phone] Rain Galaviz PA-C Unavailable Summer Lara MD Unavailable [phone] Summer Lara MD Unavailable [phone] Summer Lara MD Unavailable [phone] Tavia Wyatt MD Unavailable Johnny Murillo MD Unavailable Erica Farrell EXTRUDER OPERATOR MULTIPLE LODE MINER BLASTING Unavailable Teresita Bean [facility] Unavailable [phone] Tavia Wyatt MD Unavailable DesirDiana [facility] Unavailable Rich Barrett MD Unavailable Neil Kent MD Unavailable Roney StoryM Unavailable [phone] Erica Farrell APRN LODE MINER BLASTING Unavailable Diana Desir [facility] Unavailable [phone] Jelena David OD Unavailable [phone] Galo Burrell MD Unavailable Unavailable Livan Sharif MD Unavailable Livan Sharif MD Unavailable Catherine Cm MD Unavailable + Valery VeronicaC Unavailable [phone] Catherine Cm MD Unavailable + Johnny Murillo MD Unavailable [phone] Brea Quinn EXTRUDER OPERATOR MULTIPLE LODE MINER BLASTING Unavailable [phone] Brea Quinn EXTRUDER OPERATOR MULTIPLE LODE MINER BLASTING Unavailable [phone] Jose Francisco Johnson MD Unavailable Livan Sharif MD Unavailable Catherine Cm MD Unavailable + Sydnie Martinez RN Unavailable Unavailable Alfonso Renteria MD Unavailable Esha GrimmC Primary Care Provider Cheng Todd-C Unavailable [phone] Radha Lomeli APRN LODE MINER BLASTING Unavailable [phone] Jelena David OD Unavailable [phone] Pao Joseph RN Unavailable Unavailable [place], Esha M PA-C Unavailable [phone] Valery Veronica PA-C Unavailable Rey Tay MD Unavailable Rocky Zepeda DO Unavailable Philip Dumont MD Unavailable Meredith Carrera PA-C Unavailable Neil Kent MD Unavailable Juan Pablo Emmanuel MD Unavailable Audrey Waite PA-C Unavailable JeremíasValery damon PA-C Unavailable Herminia Hatch MD Unavailable Jelena David OD Unavailable Juan Pablo Emmanuel MD Unavailable [phone] Maru Man PA-C Unavailable Maru Man PA-C Unavailable Jelena David OD Unavailable Encounter Details Date Type Department Care Team (Late st Contact Info) Description 04/28/2021 MyC Medical Advice [address] [address] Marija Edgar APRN LODE MINER BLASTING [address] [facility] [place] [address] Social History Tobacco Use Types Packs/Day [...] Answer Date Recorded PHQ-2 Score 0 04/02/2021 [facility]at ional [...] a skilled nursing (including now)? No 08/11/2020 [place] Depression Scale Answer Date Recorded [place] Depression Score 5 01/14/2021 Last EPDS Self Harm Result Not on file 01/14 Education Answer Date Recorded What is the highest level of school you have completed or the highest degree you have received? 12th grade 08/07/2020 Comments No Sex and Gender Information Value Date Recorded Sex Assigned at Female 03/02/2021 5:45 PM CDT Legal Sex Female 4:13 AM ACADEMIC SUCCESS COORDINATOR Gender Identity Female 03/02/2021 5:45 PM [...] AM CDT Office Visit [facility] [address] [address] Maru Man PA-C [address] [address] 12/20/2024 2:30 PM CDT Office Visit [facility] [address] [place] [address] Esha Grimm PA-C [id number] [place] [address] 04/16/2025 11:00 AM CDT Virtual Visit [facility] Gastro[facility] Clinic [address]th [place] [phone] Meredith Carrera PA-C [address] [place] [address] 104285 documented as of this encounter Visit Diagnoses Not on filedocumented in this encounter Additional Health Concerns Infection Onset Date Last Indicated Resolved Time Rule Out COVID-19 05/11/2021 05/11/2021 05/13/2021 10:18 AM CDT Rule Out COVID-19 07/13/2021 07/13/2021 07/14/2021 3:04 PM ACADEMIC SUCCESS COORDINATOR Rule Out COVID-19 07/18/2021 07/18/2021 07/20/2021 1:56 PM ACADEMIC SUCCESS COORDINATOR COVID-19 07/18/2021 07/18/2021 08/08/2021 11:3 9 PM ACADEMIC SUCCESS COORDINATOR Rule Out COVID-19 12/18/2021 12/18/2021 12/19/2021 11:34 AM CDT Rule Out COVID-19 02/24/2022 02/24/2022 02/25/2022 1:08 PM CDT Rule Out COVID-19 04/26/2022 04/26/2022 04/26/2022 6:47 AM CDT Rule Out COVID-19 05/17/2022 05/17/2022 05/17/2022 10:20 PM ACADEMIC SUCCESS COORDINATOR Rule Out COVID-19 06/09/2022 06/09/2022 06/09/2022 9:35 AM ACADEMIC SUCCESS COORDINATOR COVID-19 06/09/2022 06/09/2022 06/30/2022 11:4 1 PM ACADEMIC SUCCESS COORDINATOR Rule Out COVID-19 11/10/2022 11/10/2022 11/11/2022 [...] as of this encounter Care Teams Supervisor Matrix Relationship Specialty Start Date End Date Marija Edgar APRN LODE MINER BLASTING PCP - General Nurse Practitioner 04/30/20 04/14/23 Esha Grimm PA-C [address] [place] [phone] PCP - General Family Medicine 05/04/23 Lita Oseguera Personal Advocate & Liaison (PAL) 02/28/20 03/27/23 Chanelle Mccann APRN CNM [address] [place] [address], [facility] 200 [place] [address] Assigned OBGYN Provider 05/02/2005/09 Marija Edgar APRN LODE MINER BLASTING Assigned PCP 06/08/20 04/29/23 Mynor Broussard MD 6363 [facility] 500 [place] [address] Assigned Surgical Provider 06/01/20 11/28/21 Keisha Dotson MD 909 [place] [address] Assigned Neuroscience Provider 06/04/20 04/01/23 Galo Burrell MD Assigned Heart and Vascular Provider 10/05/20 04/02/22 Diana Desir, [facility] [address] [place], [place] [address] Pharmacist Pharmacist 04/17/21 Rain Galaviz PA-C [address] [place] [address] [facility] 250 [place] [address] Physician Furnace Packer Dermatology 04/28/21 Summer Lara MD [address] [place], [place] [address] Assigned OBGYN Provider 05/10/2105/23 Summer Lara MD [address] [place], [place] 878[address] Assigned OBGYN Provider 05/31/21 2 Summer Lara MD [address] [place], [place] 499084 Assigned OBGYN Provider 05/24/2105/30 Tavia Wyatt MD [address] [facility] [address] [place], [place] 6[address] Dermatology 07/14/21 Johnny Murillo MD [address] [place], [place] 7[address] Assigned Musculoskeletal Provider 08/30/21 03/17/22 Erica Farrell APRN LODE MINER BLASTING 6405 [facility] [address] [place] [address] Nurse Practitioner Cardiovascular Disease 09/09/[address] [facility] [address] [place] [phone] Pharmacist Pharmacist 09/24/21 09/29/21 Tavia Wyatt MD [address] [place], [place] 968440 Assigned Surgical Provider 11/29/21 05/07/22 [facility] 3033 [place], [place] 573696 Assigned MTM Pharmacist 01/02/22 Rich Barrett MD 30[address] [place], [place] 003316 Physician Ophthalmology 01/21/22 Neil Kent MD 500 [place], [place] 059915 Dermatology 02/24/22 [place] D[place] [address] [facility] [address] [place], [place] 749197 Assigned Musculoskeletal Provider 03/20/22 08/13/22 Erica Farrell APRN LODE MINER BLASTING 1700 [place] [address] Assigned Heart and Vascular Provider 04/03/22 04/16/22 [facility] [address] [place], [place] [address] [address] Assigned MTM Pharmacist 04/07/22 Jelena David OD [address] [facility] [place] [address] Assigned Surgical Provider 05/08/22 10/08/22 Galo Burrell MD Assigned Heart and Vascular Provider 04/17/22 06/11/22 Livan Sharif MD [address] [place] [address] [place] 706435 Cardiovascular Disease 05/14/22 Livan Sharif MD [address] [place] [address] [place] 656065 Assigned Heart and Vascular Provider 06/12/22 07/23/22 Catherine Cm MD [address] [place] [address] [place] [address] Cardiovascular Disease 07/21/22 Valery Veronica, PAUcheC 909 [place] [address] Physician Furnace Packer Dermatology 07/21/22 Catherine Cm MD [address] [place] [address] [place] 6[address]15 Assigned Heart and Vascular Provider 07/24/22 11/05/22 Johnny Murillo MD [address] [place] [address] 354524 Assigned Musculoskeletal Provider 08/14/22 10/08/22 Brea Quinn APRN LODE MINER BLASTING [address] [place] [address] 036075 Nurse Practitioner Dermatology 09/21/22 Brea Quinn APRN LODE MINER BLASTING [address] [place] [address] [place] [address] Assigned Surgical Provider 10/09/22 05/01/24 [place] [address] [place], [place] [address] [address] Assigned Musculoskeletal Provider 10/09/22 05/01/24 Livan Sharif MD [address] [place] [address] [place] 898735 Assigned Heart and Vascular Provider 11/06/22 11/12/22 Catherine Cm MD [address] [place] [address] [place] 464945 Assigned Heart and Vascular Provider 11/13/22 05/27/23 Sydnie Martinez RN Personal Advocate & Liaison (PAL) Family Medicine 03/28/23 07/31/23 Alfonso Renteria MD [address] [facility] [place] 200 [place] [address] Assigned Neuroscience Provider 04/02/23 09/29/24 Cheng Todd PA-C [address] [place] [address] [phone] Assigned PCP 04/30/23 07/15/23 Radha Lomeli APRN LODE MINER BLASTING [address] [place] 711485 Assigned Heart and Vascular Provider 05/28/23 Jelena David OD 3305 [facility] [place] [address] Ophthalmology 06/15/23 Pao Joseph, VJ Personal Advocate & Liaison (PAL) Nurse 08/01/23 11/07/23 Esha Grimm PA-C [address] [place] [phone] Assigned PCP 07/16/23 Valery Veronica PA-C 909 [place], [place] 724185 Physician Furnace Packer Dermatology 09/19/23 Rey Tay MD [address] [place] [address] 103185 MD Gastroenterology 09/20/23 Rocky Zepeda DO [address] [place] [address] Physician Gastroenterology 09/20/23 Philip Dum[place] MD [address] [place] [place] [address] 052835 Physician Ophthalmology 09/22/23 Meredith Carrera PA-C [address] [place] [address] 075365 Assigned Gastroenterology Provider 11/01/23 Neil Kent MD [address] [place] [address] Dermatology 11/02/23 [place] [address] [place] [address] [address] Neurological Surgery 12/26/23 Audrey Waite PA-C [address] [place] [address] Physician Furnace Packer Dermatology 02/28/24 Valery Veronica PA-C 302728 [address], [place] [address] Physician Furnace Packer Dermatology 04/10/24 Herminia Hatch MD [address] [place] [address] Assigned Rheumatology Provider 07/02/24 Jelena David OD [address] [place] [address] [place] [address] Ophthalmology 08/30/24 [place] [address] [place] [address] Assigned Neuroscience Provider 09/30/24 Maru Man PA-C [address] [place] [address] Physician Furnace Packer Dermatology 10/03/24 Maru Man PA-C [address] [place] [address] Physician Furnace Packer Dermatology 10/22/24 Jelena David OD [address] [place] [address] [place] [address] Assigned Surgical Provider 10/31/24 documented as of this encounter
--- OUTSIDE RECORDS SUMMARY | 2024-11-21 05:15 | XMS_ITS | Clinical Summary ---
Author Organization [facility] Address [facility] [place] [address] Care Team Providers Care Sample Dye Mixer Name Role Phone Pcp, No Primary Care Provider Unavailabl e Clinic, No Pcp Or Unavailable Unavailable Allergies Active Allergy Reactions Criticality Noted Date Comments Vancomycin Other - Describe In Comment Field Medications biotin-silicon nunq-G-ipzcqwla 3,000 mcg -100 mg-50 mg TbER Take [...] Department Care Team Description 08/29/2024 Orders Only [facility] [id number] [address] Ernestina Toribio MD 1 scan: (1-Ord) 08/28/2024 08/28/2024 3:35 PM SALESPERSON RECREATIONAL VEHICLES Office Visit [facility] [address] [address] Ernestina Toribio MD Lightheaded (Started today ) 08/28/2024 Orders Only [facility] [address] [place] [id number] Ernestina Toribio MD Lab 08/28/2024 Travel from [...] on file Legal Sex Female 2:29 PM SALESPERSON RECREATIONAL VEHICLES Gender Identity Not on file Sexual Orientation Not on file Obstetrics History Last Filed Vital Signs Vital Sign Reading Time Taken Comments Blood Pressure 111/58 08/28/2024 3:42 PM SALESPERSON RECREATIONAL VEHICLES Pulse 72 08/28/2024 3:42 PM SALESPERSON RECREATIONAL VEHICLES Temperature 36.4 C (97.5 F) 08/28/2024 3:42 PM SALESPERSON RECREATIONAL VEHICLES Respiratory Rate 15 08/28/2024 3:42 PM SALESPERSON RECREATIONAL VEHICLES Oxygen Saturation 99% 08/28/2024 3:42 PM SALESPERSON RECREATIONAL VEHICLES Inhaled Oxygen Concentration - - Weight 90.7 kg (200 lb) 08/28/2024 3:42 PM SALESPERSON RECREATIONAL VEHICLES Height 166.5 cm (5' 5.55) 08/31/2018 11:46 [...] BY NAAT (LESIONS) Routine 08/28/2024 5:57 PM SALESPERSON RECREATIONAL VEHICLES Sore throat Routine screening for STI (sexually transmitted infection) TREPONEMA PALLIDUM Routine 08/28/2024 5: 15 PM SALESPERSON RECREATIONAL VEHICLES Routine screening for STI (sexually transmitted infection) HSV TYPE SPEC IGG GENESIS Routine 08/28/2024 5:13 PM SALESPERSON RECREATIONAL VEHICLES Sore throat ANTI HIV 1/2 Routine 08/28/2024 4:58 PM SALESPERSON RECREATIONAL VEHICLES Routine screening for STI (sexually transmitted infection) ANTI HCV Routine 08/28/2024 4:58 PM SALESPERSON RECREATIONAL VEHICLES Routine screening for STI (sexually transmitted infection) HBSAG (HBS) Routine 08/28/2024 4:58 PM SALESPERSON RECREATIONAL VEHICLES Routine screening for STI (sexually transmitted infection) MD BLOOD COUNT COMPLETE AUTO&AUTO DIFRNTL WBC Routine 08/28/2024 4:57 PM SALESPERSON RECREATIONAL VEHICLES Dizzy ISTAT CHEM 8 Routine 08/28/2024 4:57 PM SALESPERSON RECREATIONAL VEHICLES Dizzy UA W/ SEDIMENT EXAM REFLEXED PER CRITERIA STAT 08/28/2024 4:40 PM SALESPERSON RECREATIONAL VEHICLES Urine frequency TRICHOMONAS, ANDREIA, AND BACTERIAL VAGINOSIS BY [facility] Routine 08/28/2024 4:35 PM SALESPERSON RECREATIONAL VEHICLES Routine screening for STI (sexually transmitted infection) GC CHLAMYDIA TRACH PROBE Routine 08/28/2024 4:35 PM SALESPERSON RECREATIONAL VEHICLES Routine screening for STI (sexually transmitted infection) EKG 12 LEAD Routine 08/28/2024 12:00 AM SALESPERSON RECREATIONAL VEHICLES Chest tightness from Last 3 Months Results * 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] (08/28/2024 5:57 PM SALESPERSON RECREATIONAL VEHICLES) HSV 1 Negative Negative 08/29/2024 10:39 AM SALESPERSON RECREATIONAL VEHICLES [facility] HSV 2 Negative Negative 08/29/2024 10:39 AM SALESPERSON RECREATIONAL VEHICLES [facility] Other LESION SPECIMEN / Unknown Non-Blood / Unknown 08/28/2024 5:57 PM SALESPERSON RECREATIONAL VEHICLES 08/28/2024 5:57 PM SALESPERSON RECREATIONAL VEHICLES [facility] - 08/29/2024 10:39 AM SALESPERSON RECREATIONAL VEHICLES Results from the Aptima HSV 1 & 2 assay should be interpreted in conjunction with other clinical data available to the clinician. A negative Aptima HSV 1 & 2 assay result does not preclude a possible infection because results are dependent on adequate specimen collection. us Ernestina Toribio MD MICROBIOLOGY Final Result Performing Organization Address City/[facility]/ZIP Co de Phone Number [facility] [address] [place] [address], [place] * TREPONEMA PALLIDUM [55006.1] (08/28/2024 5:15 PM SALESPERSON RECREATIONAL VEHICLES) TREPONEMA PALLIDUM Non-Reacti ve Non-Reacti ve 08/28/2024 10:36 PM SALESPERSON RECREATIONAL VEHICLES [facility] TRAL [facility] Blood BLOOD SPECIMEN / Unknown [facility] / Unknown 08/28/2024 5:15 PM SALESPERSON RECREATIONAL VEHICLES 08/28/2024 5:58 PM SALESPERSON RECREATIONAL VEHICLES us Ernestina Toribio MD SEND OUTS Final Result Performing Organization Address [facility] Co de Phone Number [facility] [address] [place] [address], [place] * HSV TYPE SPEC IGG GENESIS (08/28/2024 5:13 PM SALESPERSON RECREATIONAL VEHICLES) HSV 1 IGG, TYPE SPECIFIC AB <0.90 [...] screening. For additional information, please refer to http://[employer].Digly/faq/CEK163 (This link is being provided for informational/ educational purposes only.) Blood BLOOD SPECIMEN / Unknown 08/28/2024 5:13 PM SALESPERSON RECREATIONAL VEHICLES 08/28/2024 5:13 PM SALESPERSON RECREATIONAL VEHICLES Ernestina Toribio MD SEND OUTS Final Result Performing Organization Address [facility] de Phone Number kidthing [facility] [address] [place] [address], [facility] [address] [place] [address] * HBSAG (HBS) [73606.2] (08/28/2024 4:58 PM SALESPERSON RECREATIONAL VEHICLES) HEPATITIS B SURFACE ANTIGEN NON-REACTI VE NON-REACTI VE [facility] Comment: For additional information, please refer to http://[employer].MBA Polymers/faq/KRT229 (This link is being provided for informational/ educational purposes only.) Blood BLOOD SPECIMEN / Unknown 08/28/2024 4:58 PM SALESPERSON RECREATIONAL VEHICLES 08/28/2024 4:58 PM SALESPERSON RECREATIONAL VEHICLES Ernestina Toribio MD SEND OUTS Final Result Performing Organization Address [facility]/ZIP Co de Phone Number kidthing [facility] [address] [place] [address], [place] [phone] [facility] [address] [place] [address] * ANTI HCV [87231.2] (08/28/2024 4:58 PM SALESPERSON RECREATIONAL VEHICLES) HEPATITIS C ANTIBODY NON-REACTI VE NON-REACT TAE [facility] Comment: HCV antibody was non-reactive. There is no laboratory evidence of HCV infection. In most cases, no further action is required. However, if recent HCV exposure is suspected, a test for HCV RNA (test code 87866) is suggested. For additional information please refer to http://[employer].M[employer]ymers/faq/OSA21i3 (This link is being provided for informational/ educational purposes only.) Blood BLOOD SPECIMEN / Unknown 08/28/2024 4:58 PM SALESPERSON RECREATIONAL VEHICLES 08/28/2024 4:58 PM SALESPERSON RECREATIONAL VEHICLES Ernestina Toribio MD SEND OUTS Final Result kidthing [facility] [address] [place] [address], [facility] [address] [place] [address] * ANTI HIV 1/2 [86359.0] (08/28/2024 4:58 PM SALESPERSON RECREATIONAL VEHICLES) HIV AG/AB, 4TH GEN NON-REACT TAE NON-REACT TAE [facility] Comment: HIV-1 antigen and HIV-1/HIV-2 antibodies [...] purpose. For additional information please refer to http://[employer].1stdibs.Al Detal/faq/MMO890 (This link is being provided for informational/ educational purposes only.) The performance of this assay has not been clinically validated in patients less than 2 years old. Blood BLOOD SPECIMEN / Unknown 08/28/2024 4:58 PM SALESPERSON RECREATIONAL VEHICLES 08/28/2024 4:58 PM SALESPERSON RECREATIONAL VEHICLES Ernestina Toribio MD SEND OUTS Final Result [facility] [address] [place] [address], [place] [phone] [facility] [address] [place] [address] * IN CLINIC Chem 8 (08/28/2024 4:57 PM SALESPERSON RECREATIONAL VEHICLES) POCT, SODIUM, ISTAT 139 138 - 146 mmol/L [facility]) POCT, POTASSIUM, ISTAT 3.7 3.5 - 4.9 mmol/L [facility]) POCT, CHLORIDE, ISTAT 101 98 - 109 mmol/L [facility]) POCT, CARBON DIOXIDE, ISTAT 26 24 - 29 mmol/L [facility]) POCT, GLUCOSE ISTAT 77 70 - 105 mg/dL [facility]) POCT, UREA NITROGEN (BUN) ISTAT 14 8 - 26 mg/dL [facility]) POCT,CREATININE , ISTAT 0.9 0.6 - 1.3 mg/dL [facility]) POCT, CALCIUM, IONIZED, ISTAT 4.9 4.5 - 5.3 mg/dL [facility]) Blood BLOOD SPECIMEN / Unknown 08/28/2024 4:57 PM SALESPERSON RECREATIONAL VEHICLES 08/28/2024 4:57 PM SALESPERSON RECREATIONAL VEHICLES us Ernestina Toribio MD CHEMISTRY Final Result [facility] [address] [place] [address], [place] [facility] (Ur[facility] Care) [address] [place] [address] * (ABNORMAL) IN CLINIC CBC and Differential (08/28/2024 4:57 PM SALESPERSON RECREATIONAL VEHICLES) Pathologist [facility] WHITE BLOOD CELL COUNT 6.5 3.8 - 10.8 Thousand/u L [facility] (Urgent Care) RED BLOOD CELL COUNT 4.71 3.80 - 5.10 Million/uL [facility]) HEMOGLOBIN 12.1 11.7 - 15.5 g/dL [facility] HEMATOCRIT 38.6 35.0 - 45.0 % [facility]) MCV 82.0 80.0 - 100.0 fL [facility]) MCH 25.7(L) 27.0 - 33.0 pg [facility]) MCHC 31.3(L) 32.0 - 36.0 g/dL [facility] (Ur[facility]) Comment: For adults, a slight decrease in the calculated MCHC value (in the range of 30 to 32 g/dL) is most likely not clinically significant; however, it should be interpreted with caution in correlation with other red cell parameters and the patient's clinical condition. RDW 12.5 11.0 - 15.0 % [facility]) PLATELET COUNT 246 140 - 400 Thousand/u L [facility]) MPV 10.2 7.5 - 12.5 fL [facility]Ur[facility]) ABSOLUTE NEUTROPHILS 3,816 1,500 - 7,800 cells/uL [facility]) ABSOLUTE LYMPHOCYTES 2,009 850 - 3,900 cells/uL [facility]) ABSOLUTE MONOCYTES 371 200 - 950 cells/uL [facility]) ABSOLUTE EOSINOPHILS 286 15 - 500 cells/uL [facility]) ABSOLUTE BASOPHILS 20 0 - 200 cells/uL [facility]) NEUTROPHILS 58.7 % [facility]) LYMPHOCYTES 30.9 % [facility] ([facility]) MONOCYTES 5.7 % [facility]) EOSINOPHILS 4.4 % [facility]) BASOPHILS 0.3 % [facility]) Blood BLOOD SPECIMEN / Unknown 08/28/2024 4:57 PM SALESPERSON RECREATIONAL VEHICLES 08/28/2024 4:57 PM SALESPERSON RECREATIONAL VEHICLES us Ernestina Toribio MD HEMATOLOGY Final Result Performing Organization Address [facility] Co de Phone Number [facility] [address] [place] [address], [facility] [address] [place] [address] * STAT Urinalysis w/ reflex to Microscopic (08/28/2024 4:40 PM SALESPERSON RECREATIONAL VEHICLES) COLOR YELLOW YELLOW [facility] [...] URINE SPECIMEN / Unknown 08/28/2024 4:40 PM SALESPERSON RECREATIONAL VEHICLES 08/28/2024 4:41 PM SALESPERSON RECREATIONAL VEHICLES us Ernestina Toribio MD URINE Final Result Performing Organization Address [facility]/ZIP Co de Phone Number [facility] [address] [place] [address], [place] [facility] (Urgent [facility]) [address] [place] [address] * (ABNORMAL) Vaginal-TRICHOMONAS, ANDREIA, AND BACTERIAL VAGINOSIS BY [facility] (08/28/2024 4:35 PM SALESPERSON RECREATIONAL VEHICLES) ANDREIA SPECIES Positive(A) Negative 08/29/19 11:18 AM SALESPERSON RECREATIONAL VEHICLES [facility] ANDREIA GLABRATA Negative Negative 08/29/2024 11:18 AM SALESPERSON RECREATIONAL VEHICLES [facility] TRICHOMONAS VVA Negative Negative 11:18 AM SALESPERSON RECREATIONAL VEHICLES [facility] BACTERIAL VAGINOSIS Negative Negative 08/29/2024 11:18 AM SALESPERSON RECREATIONAL VEHICLES [facility] Other VAGINAL SWAB / Unknown Non-Blood / Unknown 08/28/2024 4:35 PM SALESPERSON RECREATIONAL VEHICLES 08/28/2024 4:36 PM SALESPERSON RECREATIONAL VEHICLES us Ernestina Toribio MD MICROBIOLOGY Final Result Performing Organization Address City/[facility]/ZIP Co de Phone Number [facility] [address] [place] [address], [place] * Vaginal GC CHLAMYDIA TRACH PROBE (08/28/2024 4:35 PM SALESPERSON RECREATIONAL VEHICLES) CHLAMYDIA PROBE Negative 11:45 AM SALESPERSON RECREATIONAL VEHICLES [facility] N GONORRHOEAE PROBE Negative 08/29/2024 11:45 AM SALESPERSON RECREATIONAL VEHICLES [facility] Other VAGINAL SWAB / Unknown Non-Blood / Unknown 08/28/2024 4:35 PM SALESPERSON RECREATIONAL VEHICLES 08/28/2024 4:36 PM SALESPERSON RECREATIONAL VEHICLES us Ernestina Toribio MD MICROBIOLOGY Final Result [facility] [address] [place] [address], [place] * EKG 12 LEAD (08/28/2024 12:00 AM SALESPERSON RECREATIONAL VEHICLES) us Ernestina Toribio MD EKG ORD Final Result from Last 3 Months Insurance [facility] Care Teams Sample Dye Mixer Relationship Specialty Start Date End Date Pcp, No . PCP - General 03/25/24 Clinic, No Pcp Or . 03/25/24
--- OUTSIDE RECORDS SUMMARY | 2024-11-21 05:15 | XMS_ITS | Encounter Summary ---
Author Organization [place] Address [address] [place] [address] Care Team Providers Care Cleaning And Maintenance Worker Name Role Phone Lita Oseguera Unavailable Unavailable Marija Edgar APRN HOIST MECHANIC Primary Care Provider + Marija Edgar APRN HOIST MECHANIC Unavailable Mynor Broussard MD Unavailable [phone] Keisha Dotson MD Unavailable Galo Burrell MD Unavailable Unavailable Diana Desir [facility] Unavailable [phone] Rain Galaviz PA-C Unavailable [phone] Summer Lara MD Unavailable [phone] Tavia Wyatt MD Unavailable Johnny Murillo MD Unavailable Erica Farrell APRN HOIST MECHANIC Unavailable Teresita Bean [facility] Unavailable Tavia Wyatt MD Unavailable Diana Desir [facility] Unavailable Rich Barrett MD Unavailable [phone] Neil Kent MD Unavailable Roney Story DPM Unavailable Erica Farrell LIQUOR DEPARTMENT MANAGER HOIST MECHANIC Unavailable Diana Desir [facility] Unavailable [phone] Jelena David OD Unavailable Galo Burrell MD Unavailable Unavailable Livan Sharif MD Unavailable + Livan Sharif MD Unavailable + Catherine Cm MD Unavailable + Valery Veronica PA-C Unavailable [phone] Catherine Cm MD Unavailable + Johnny Murillo MD Unavailable [phone] Brea Quinn LIQUOR DEPARTMENT MANAGER HOIST MECHANIC Unavailable [phone] Brea Quinn LIQUOR DEPARTMENT MANAGER HOIST MECHANIC Unavailable [phone] Jose Francisco Johnson MD Unavailable Livan Sharif MD Unavailable + IsCatherine hobbs MD Unavailable + Sydnie Martinez RN Unavailable Unavailable Alfonso Renteria MD Unavailable Esha Grimm-C Primary Care Provider Cheng Todd PA-C Unavailable Radha Lomeli LIQUOR DEPARTMENT MANAGER HOIST MECHANIC Unavailable [phone] Jelena David OD Unavailable [phone] Pao Joseph RN Unavailable Unavailable Esha Grimm-C Unavailable [phone] JeremíasValery damon PA-C Unavailable [phone] Rey Tay MD Unavailable Rocky Zepeda DO Unavailable Philip Dumont MD Unavailable [phone] Meredith Carrera PA-C Unavailable [phone] Neil Kent MD Unavailable Juan Pablo Emmanuel MD Unavailable Audrey Waite PA-C Unavailable [phone] Valery Veronica PA-C Unavailable [phone] Herminia Hatch MD Unavailable Jelena David OD Unavailable Juan Pablo Emmanuel MD Unavailable [phone] Maru ManC Unavailable [phone] Maru ManC Unavailable [phone] Jelena David OD Unavailable Encounter Details Date Type Department Care Team (Late st Contact Info) Description 06/01/2021 [facility] [place] [facility] Medical Advice [address] [address] Diana Desir, [facility] [address] [place], [place] [phone] Social History Tobacco Use Types Packs/Day Years [...] Answer Date Recorded PHQ-2 Score 0 04/02/2021 [facility] of Occupat ional Health [...] in a penitentiary (including now)? No 08/11/2020 [place] Depression Scale Answer Date Recorded [place] Depression Score 5 01/14/2021 Last EPDS Self Harm Result Not on file 01/14 Education Answer Date Recorded What is the highest level of school you have completed or the highest degree you have received? 12th grade 08/07/2020 Comments No Sex and Gender Information Value Date Recorded Sex Assigned at Female 03/02/2021 5:45 PM CDT Legal Sex Female 4:13 AM OUTSIDE SALES EXECUTIVE Gender Identity Female 03/02/2021 5:45 PM CDT Sexual Orientation Straight 02/28/2020 12 :51 AM CDT COVID-19 Exposure Response Date Recorded In the last month, have you been in contact with someone who was confirmed or suspected to have Coronavirus / COVID-19? No / Unsure 05/11/2021 4:19 PM CDT documented as of this encounter Miscellaneous Notes * Telephone Encounter - Diana Desir, [facility] - 06/01/2021 3:43 PM CST Called patient and reassured 50 mg dose increase in sertraline is typical and okay to do. She will closely monitor changes in mental health over next couple weeks. Answered all questions. Diana Desir, PharmD Medication Therapy Management Provider, [facility] Pager: [phone] IDE SALES EXECUTIVE documented in this encounter Plan of Treatment Upcoming Encounters Date Type Department Care Team (Late st Contact Info) Description 11/21/2024 7:00 AM CDT Office Visit [facility] [address] [phone] Maru Man PA-C [address] [place] [address] [phone] 12/20/2024 2:30 PM CDT Office Visit [facility] [address] [place] [address] Esha Grimm PA-C [address] [place] [phone] 04/16/2025 11:00 AM CDT Virtual Visit [facility] [address] [phone] Meredith Carrera PA-C [address] [place] [address] [phone] documented as of this encounter Visit Diagnoses Not on filedocumented in this encounter Additional Health Concerns Infection Onset Date Last Indicated Resolved Time Rule Out COVID-19 07/13/2021 07/13/2021 07/14/2021 3:04 PM OUTSIDE SALES EXECUTIVE Rule Out COVID-19 07/18/2021 07/18/2021 07/20/2021 1:56 PM OUTSIDE SALES EXECUTIVE COVID-19 07/18/2021 07/18/2021 08/08/2021 11:3 9 PM OUTSIDE SALES EXECUTIVE Rule Out COVID-19 12/18/2021 12/18/2021 12/19/2021 11:34 AM CDT Rule Out COVID-19 02/24/2022 02/24/2022 02/25/2022 1:08 PM CDT Rule Out COVID-19 04/26/2022 04/26/2022 04/26/2022 6:47 AM CDT Rule Out COVID-19 05/17/2022 05/17/2022 05/17/2022 10:20 PM OUTSIDE SALES EXECUTIVE Rule Out COVID-19 06/09/2022 06/09/2022 06/09/2022 9:35 AM OUTSIDE SALES EXECUTIVE COVID-19 06/09/2022 06/09/2022 06/30/2022 11:4 1 PM OUTSIDE SALES EXECUTIVE Rule Out COVID-19 11/10/2022 11/10/2022 11/11/2022 [...] documented as of this encounter Care Teams Cleaning And Maintenance Worker Relationship Specialty Start Date End Date Marija Edgar APRN CNP PCP - General Nurse Practitioner 04/30/20 04/14/23 Esha Grimm PA-C [address] [place] [address] PCP - General Family Medicine 05/04/23 Lita Oseguera Personal Advocate & Liaison (PAL) 02/28/20 03/27/23 Marija Edgar APRN HOIST MECHANIC Assigned PCP 06/08/20 04/29/23 Mynor Broussard MD [address] [facility] [address] [place] [address] Assigned Surgical Provider 06/01/20 11/28/21 Keisha Dotson MD [address] [place], [place] 517995 Assigned Neuroscience Provider 06/04/20 04/01/23 Galo Burrell MD Assigned Heart and Vascular Provider 10/05/20 04/02/22 [facility] [address] [place] [address] Pharmacist Pharmacist 04/17/21 Rain Galaviz PA-C [address] [facility] [address] [place] [address] Physician Coach Tour Driver Dermatology 04/28/21 Summer Lara MD [address] [place] [address] Assigned OBGYN Provider 05/31/21 2 Tavia Wyatt MD [address] [place] [address] 768144 Dermatology 07/14/21 Johnny Murillo MD [facility] [place] [address] Assigned Musculoskeletal Provider 08/30/21 03/17/22 Erica Farrell APRN HOIST MECHANIC 6405 [facility] [address] [place] [address] Nurse Practitioner Cardiovascular Disease 09/09/21 [facility] [address] [facility] [address] [place], [place] [phone] Pharmacist Pharmacist 09/24/21 09/29/21 Tavia Wyatt MD [address] [place] [address] Assigned Surgical Provider 11/29/21 05/07/22 [facility] [address] [place] [address] Assigned MTM Pharmacist 01/02/22 Rich Barrett MD [address] [place] [address] Physician Ophthalmology 01/21/22 Neil Kent MD 500 [place] [address] Dermatology 02/24/22 Roney Story DPM [address] [facility] [address] [place] [address] Assigned Musculoskeletal Provider 03/20/22 08/13/22 Erica Farrell APRN HOIST MECHANIC 1700 [place] [address] Assigned Heart and Vascular Provider 04/03/22 04/16/22 Diana Desir, [facility] [address] [place] [address] Assigned MTM Pharmacist 04/07/22 Jelena David OD [address] [place] [place] [address] Assigned Surgical Provider 05/08/22 10/08/22 Galo Burrell MD Assigned Heart and Vascular Provider 04/17/22 06/11/22 Livan Sharif MD [address] [place] [address] [place] [address] Cardiovascular Disease 05/14/22 Livan Sharif MD [address] [place] [address] [place] [address] Assigned Heart and Vascular Provider 06/12/22 07/23/22 Catherine Cm MD [address] [place] [address] [place] 754635 Cardiovascular Disease 07/21/22 Valery Veronica, PA-C [address] [place], [place] [address] Physician Coach Tour Driver Dermatology 07/21/22 Catherine Cm MD [address] [place] [address] [place] 137685 Assigned Heart and Vascular Provider 07/24/22 11/05/22 Johnny Murillo MD [facility] [address] Assigned Musculoskeletal Provider 08/14/22 10/08/22 Brea Quinn APRN HOIST MECHANIC [address] [place] [address] Nurse Practitioner Dermatology 09/21/22 Brea Quinn APRN HOIST MECHANIC [address] [place] [address] Assigned Surgical Provider 10/09/22 05/01/24 [place] [address] [address] Assigned Musculoskeletal Provider 10/09/22 05/01/24 Livan Sharif MD 6405 [facility] [address] [place] [address] Assigned Heart and Vascular Provider 11/06/22 11/12/22 Catherine Cm MD [address] [place] 5642700 [place] [address] Assigned Heart and Vascular Provider 11/13/22 05/27/23 Sydnie Martinez RN Personal Advocate & Liaison (PAL) Family Medicine 03/28/23 07/31/23 Alfonso Renteria MD 5775 [facility] 200 [place], [place] 035126 Assigned Neuroscience Provider 04/02/23 09/29/24 Cheng Todd PA-C [address] [place] [address] [phone] Assigned PCP 04/30/23 07/15/23 Radha Lomeli APRN HOIST MECHANIC 6405 [facility] [address] [place] [address] Assigned Heart and Vascular Provider 05/28/23 Jelena David OD [address] [place] [place] [address] MD Ophthalmology 06/15/23 Pao Joseph, VJ Personal Advocate & Liaison (PAL) Nurse 08/01/23 11/07/23 Esha Grimm PA-C [address] [place] [address]69[address]83 Assigned PCP 07/16/23 Valery Veronica PA-C [address] [place] [address] Physician Coach Tour Driver Dermatology 09/19/23 Rey Tay MD [address] [place] [address] 697905 Gastroenterology 09/20/23 Rocky Zepeda DO [address] [place] [address] 883215 Physician Gastroenterology 09/20/23 Philip Dumont MD [address] [place] [address] 818235 Physician Ophthalmology 09/22/23 Meredith Carrera PA-C [address] [place], [place] 858065 Assigned Gastroenterology Provider 11/01/23 Neil Kent MD [address] [place] [address] Dermatology 11/02/23 [place] [address] [facility] [place], [place] [phone] Neurological Surgery 12/26/23 Audrey Waite PA-C 500 [place], [place] 647425 Physician Coach Tour Driver Dermatology 02/28/24 Valery Veronica PA-C 213340 [place], [place] 6965[address] Physician Coach Tour Driver Dermatology 04/10/24 Herminia Hatch MD [address] [place] [address] [id number] Assigned Rheumatology Provider 07/02/24 Jelena David OD [address] [place] [address] [place] [address] Ophthalmology 08/30/24 [place] [address] [place] [address] Assigned Neuroscience Provider 09/30/24 Maru Man PA-C [address] [place] [address] Physician Coach Tour Driver Dermatology 10/03/24 Maru Man PA-C [address] [place] [address] Physician Coach Tour Driver Dermatology 10/22/24 Jelena Daivd OD [address] [place] [address] [place] [address] Assigned Surgical Provider 10/31/24 documented as of this encounter
--- OUTSIDE RECORDS SUMMARY | 2024-11-21 05:16 | XMS_ITS | Encounter Summary ---
Author Organization [place] Address [address] [place] [address] Care Team Providers Care Manager Business Process Name Role Phone Lita Oseguera Unavailable Unavailable Marija Edgar CLIENT SUPPORT ADMINISTRATOR HISTORY FACULTY MEMBER Primary Care Provider + Chanelle Mccann CLIENT SUPPORT ADMINISTRATOR CNM Unavailab le Marija Edgar APRN HISTORY FACULTY MEMBER Unavailable [phone] Mynor Broussard MD Unavailable [phone] Keisha Dotson MD Unavailable [phone] Galo Burrell MD Unavailable Unavailable Diana Desir [facility] Unavailable [phone] Rain Galaviz PA-C Unavailable Summer Lara MD Unavailable [phone] Summer Lara MD Unavailable [phone] Summer Lara MD Unavailable [phone] Tavia Wyatt MD Unavailable Johnny Murillo MD Unavailable Erica Farrell CLIENT SUPPORT ADMINISTRATOR HISTORY FACULTY MEMBER Unavailable Teresita Bean [facility] Unavailable Tavia Wyatt MD Unavailable DesirDiana [facility] Unavailable Rich Barrett MD Unavailable Neil Kent MD Unavailable Roney StoryM Unavailable [phone] Erica Farrell APRN HISTORY FACULTY MEMBER Unavailable Diana Desir [facility] Unavailable [phone] Jelena David OD Unavailable Galo Burrell MD Unavailable Unavailable Livan Sharif MD Unavailable Livan Sharif MD Unavailable Catherine Cm MD Unavailable + Valery VeronicaC Unavailable [phone] Catherine Cm MD Unavailable + Johnny Murillo MD Unavailable [phone] Brea Quinn CLIENT SUPPORT ADMINISTRATOR HISTORY FACULTY MEMBER Unavailable [phone] Brea Quinn CLIENT SUPPORT ADMINISTRATOR HISTORY FACULTY MEMBER Unavailable [phone] Jose Francisco Johnson MD Unavailable Livan Sharif MD Unavailable Catherine Cm MD Unavailable + Sydnie Martinez RN Unavailable Unavailable Alfonso Renteria MD Unavailable Esha GrimmC Primary Care Provider Cheng Todd-C Unavailable [phone] Radha Lomeli APRN HISTORY FACULTY MEMBER Unavailable [phone] Jelena David OD Unavailable Pao Joseph RN Unavailable Unavailable [place], Esha M PA-C Unavailable [phone] Valery Veronica PA-C Unavailable [phone] Rey Tay MD Unavailable Rocky Zepeda DO Unavailable Philip Dumont MD Unavailable [phone] Meredith Carrera PA-C Unavailable [phone] Neil Kent MD Unavailable Juan Pablo Emmanuel MD Unavailable Audrey Waite PA-C Unavailable [phone] Valery Veronica PA-C Unavailable Herminia Hatch MD Unavailable Jelena David OD Unavailable Juan Pablo Emmanuel MD Unavailable [phone] Maru Man PA-C Unavailable [phone] Maru Man PA-C Unavailable [phone] Jelena David OD Unavailable Encounter Details Date Type Department Care Team (Late st Contact Info) Description 05/05/2021 [facility] Medical Advice [address] [address] Lauren Gan, RN Social History [...] Answer Date Recorded PHQ-2 Score 0 04/02/2021 [facility] [place] of Occupat ional Health - Occupational Stress [...] in a usp (including now)? No 08/11/2020 [place] Depression Scale Answer Date Recorded [place] [...] CDT Legal Sex Female 4:13 AM FURNACE OPERATOR Gender Identity Female 03/02/2021 5:45 [...] Description 11/21/2024 7:00 AM CDT Office Visit [facility] [place] [address] [phone] Maru Man PA-C [address] [address] 12/20/2024 2:30 PM CDT Office Visit [facility] [address] [place] [phone] Esha Grimm PA-C [address] [place] [address] 04/16/2025 11:00 AM CDT Virtual Visit [facility] Gastro[facility]ology Clinic [address] [phone] Meredith Carrera PA-C [address] [place] [address] documented as of this encounter Visit Diagnoses Not on filedocumented in this encounter Additional Health Concerns Infection Onset Date Last Indicated Resolved Time Rule Out COVID-19 05/11/2021 05/11/2021 05/13/2021 10:18 AM CDT Rule Out COVID-19 07/13/2021 07/13/2021 07/14/2021 3:04 PM FURNACE OPERATOR Rule Out COVID-19 07/18/2021 07/18/2021 07/20/2021 1:56 PM FURNACE OPERATOR COVID-19 07/18/2021 07/18/2021 08/08/2021 11:3 9 PM FURNACE OPERATOR Rule Out COVID-19 12/18/2021 12/18/2021 12/19/2021 11:34 AM CDT Rule Out COVID-19 02/24/2022 02/24/2022 02/25/2022 1:08 PM CDT Rule Out COVID-19 04/26/2022 04/26/2022 04/26/2022 6:47 AM CDT Rule Out COVID-19 05/17/2022 05/17/2022 05/17/2022 10:20 PM FURNACE OPERATOR Rule Out COVID-19 06/09/2022 06/09/2022 06/09/2022 9:35 AM FURNACE OPERATOR COVID-19 06/09/2022 06/09/2022 06/30/2022 11:4 1 PM FURNACE OPERATOR Rule Out COVID-19 11/10/2022 11/10/2022 [...] as of this encounter Care Teams Manager Business Process Relationship Specialty Start Date End Date Marija Edgar APRN HISTORY FACULTY MEMBER PCP - General Nurse Practitioner 04/30/20 04/14/23 Esha Grimm PA-C [address] [place] [phone] PCP - General Family Medicine 05/04/23 Lita Oseguera Personal Advocate & Liaison (PAL) 02/28/20 03/27/23 Chanelle Mccann APRN [place] [address] [address] Assigned OBGYN Provider 05/02/2005/09 Marija Edgar APRN HISTORY FACULTY MEMBER Assigned PCP 06/08/20 04/29/23 Mynor Broussard MD 6363 [facility] 500 [place] [address] Assigned Surgical Provider 06/01/20 11/28/21 Keisha Dotson MD 909 [place], [place] 717675 Assigned Neuroscience Provider 06/04/20 04/01/23 Galo Burrell MD Assigned Heart and Vascular Provider 10/05/20 04/02/22 [facility] 3033 [place] [address] Pharmacist Pharmacist 04/17/21 Rain Galaviz PA-C [address] [facility] [address] [address] 250 [place] [address] Physician Psychology Fellow Dermatology 04/28/21 Summer Lara MD [address] [place] [address] Assigned OBGYN Provider 05/10/2105/23 Summer Lara MD 606 [facility] [place] [address] Assigned OBGYN Provider 05/31/21 2 Summer Lara MD [address] [place] [address] Assigned OBGYN Provider 05/24/2105/30 Tavia Wyatt MD [address] [address] Dermatology 07/14/21 Johnny Murillo MD [address] [place] [address] Assigned Musculoskeletal Provider 08/30/21 03/17/22 Erica Farrell APRN HISTORY FACULTY MEMBER 6405 [facility] [address] [place] [address] Nurse Practitioner Cardiovascular Disease 09/09/21 [facility] [address] [place], [place] [phone] Pharmacist Pharmacist 09/24/21 09/29/21 Tavia Wyatt MD [address] [place] [address] Assigned Surgical Provider 11/29/21 05/07/22 [facility] 3033 [place] [address] Assigned MTM Pharmacist 01/02/22 Rich Barrett MD 3033 [place] [address] Physician Ophthalmology 01/21/22 Neil Kent MD 500 [place] [address] Dermatology 02/24/22 Roney Story DPM [address] [facility] [address] [place] [address] Assigned Musculoskeletal Provider 03/20/22 08/13/22 Erica Farrell APRN HISTORY FACULTY MEMBER 1700 [place] [address] Assigned Heart and Vascular Provider 04/03/22 04/16/22 Diana Desir, [facility] 3033 [place] [address] Assigned MTM Pharmacist 04/07/22 Jelena David OD [address] [place] [address] Assigned Surgical Provider 05/08/22 10/08/22 Galo Burrell MD Assigned Heart and Vascular Provider 04/17/22 06/11/22 Livan Sharif MD [address] [place] [address] Cardiovascular Disease 05/14/22 Livan Sharif MD [address] [place] [address] [place] [address] Assigned Heart and Vascular Provider 06/12/22 07/23/22 Catherine Cm MD [address] [address] [place] [address] Cardiovascular Disease 07/21/22 Valery Veronica PA-C 909 [place], [place] 3164[address] Physician Psychology Fellow Dermatology 07/21/22 Catherine Cm MD [address] [place] [address] [place] [address] Assigned Heart and Vascular Provider 07/24/22 11/05/22 Johnny Murillo MD [address] [place] [address] Assigned Musculoskeletal Provider 08/14/22 10/08/22 Brea Quinn APRN HISTORY FACULTY MEMBER [address] [place] [address] Nurse Practitioner Dermatology 09/21/22 Brea Qunin APRN HISTORY FACULTY MEMBER [address] [place] [address] Assigned Surgical Provider 10/09/22 05/01/24 [place] [address] [facility] [address] [address] Assigned Musculoskeletal Provider 10/09/22 05/01/24 Livan Sharif MD [address] [facility]00 [place] [address] Assigned Heart and Vascular Provider 11/06/22 11/12/22 Catherine Cm MD [address] [address] [place] [address] Assigned Heart and Vascular Provider 11/13/22 05/27/23 Sydnie Martinez, RN Personal Advocate & Liaison (PAL) Family Medicine 03/28/23 07/31/23 Alfonso Renteria MD 5775 [facility] 200 [place] [address] Assigned Neuroscience Provider 04/02/23 09/29/24 Cheng Todd PA-C [address] [place] [address] [phone] Assigned PCP 04/30/23 07/15/23 Radha Lomeli APRN HISTORY FACULTY MEMBER [address] [place] [address] Assigned Heart and Vascular Provider 05/28/23 Jelena David OD [facility] [place] [address] Ophthalmology 06/15/23 Pao Joseph RN Personal Advocate & Liaison (PAL) Nurse 08/01/23 11/07/23 Esha Grimm PA-C [address] [place] [address] Assigned PCP 07/16/23 Valery Veronica PA-C [address] [place] [address] 682225 Physician Psychology Fellow Dermatology 09/19/23 Rey Tay MD [address] [place] [address] MD Gastroenterology 09/20/23 Rocky Zepeda DO [address] [place] [address] Physician Gastroenterology 09/20/23 Philip Dumont MD [address] [place] [address] Physician Ophthalmology 09/22/23 Meredith Carrera PA-C [address] [place] [address] Assigned Gastroenterology Provider 11/01/23 Neil Kent MD [address] [place] [address] MD Dermatology 11/02/23 [place] [address] [facility] [address] [phone] Neurological Surgery 12/26/23 Audrey Waite PA-C [address] [place] [address] Physician Psychology Fellow Dermatology 02/28/24 Valery Veronica PA-C 037041 [address] [place] [address] Physician Psychology Fellow Dermatology 04/10/24 Herminia Hatch MD [address] [place] [address] [phone] Assigned Rheumatology Provider 07/02/24 Jelena David OD 3305 [facility] [place] [address] Ophthalmology 08/30/24 [place] [address] [facility] [place] [address] Assigned Neuroscience Provider 09/30/24 Maru Man PA-C [address] [place] [address] Physician Psychology Fellow Dermatology 10/03/24 Maru Man PA-C [address] [place] [address] Physician Psychology Fellow Dermatology 10/22/24 Jelena David OD 3305 [facility] [place] [address] Assigned Surgical Provider 10/31/24 documented as of this encounter
--- OUTSIDE RECORDS SUMMARY | 2024-11-21 05:16 | XMS_ITS | Encounter Summary ---
Author Organization [place] Address [address] [place] [address] Care Team Providers Care Verse Writer Name Role Phone Lita Oseguera Unavailable Unavailable Marija Edgar APRN STREET WORKER Primary Care Provider + Marija Edgar APRN STREET WORKER Unavailable Keisha Dotson MD Unavailable Diana Desir [facility] Unavailable Rain Galaviz PA-C Unavailable Tavia Wyatt MD Unavailable [phone]N [address]RE[address] WORKER Unavailable Rich Barrett MD Unavailable [phone] Neil Kent MD Unavailable Diana Desir [facility] Unavailable Jelena David OD Unavailable Livan Sharif MD Unavailable Catherine Cm MD Unavailable + Valery Veronica PA-C Unavailable Catherine Cm MD Unavailable + Johnny Murillo MD Unavailable [phone] WORKER Unavailable [phone] Brea Quinn LSW STREET WORKER Unavailable [phone] Jose Francisco Johnson MD Unavailable Livan Sharif MD Unavailable Catherine Cm MD Unavailable + Sydnie Martinez RN Unavailable Unavailable Alfonso Renteria MD Unavailable [phone] Esha Grimm PA-C Primary Care Provider Cheng Todd PA-C Unavailable [phone] WORKER Unavailable Jelena David OD Unavailable Pao Joseph RN Unavailable Unavailable Esha Grimm PA-C Unavailable [phone] Valery Veronica PA-C Unavailable Rey Tay MD Unavailable Rocky Zepeda DO Unavailable Philip Dumont MD Unavailable Meredith Carrera PA-C Unavailable [phone] Neil Kent MD Unavailable Juan Pablo Emmanuel MD Unavailable Audrey Waite PA-C Unavailable Valery Veronica PA-C Unavailable Herminia Hatch MD Unavailable Jelena David OD Unavailable Juan Pablo Emmanuel MD Unavailable Maru Man PA-C Unavailable + Maru Man PA-C Unavailable + Jelena David OD Unavailable [phone] Encounter Details Date Type Department Care Team (Late st Contact Info) Description 10/06/2022 My[facility] Medical Advice [facility] [address] [facility] [place] [phone] Brea Quinn APRN [employer] [address] [facility] [place] [address] Social History Tobacco Use Types Packs/Day Years [...] How often do you attend restorationism or judaism serv ices? Never 09/22/2021 Do [...] positive 1 10/10/2022 [facility] - Occupational Stress Questionnaire Answer [...] in a chcf (including now)? No 09/22/2021 [place] Depression Scale Answer Date Recorded [place] Depression Score 5 01/14/2021 Last EPDS Self Harm Result Not on file 01/14 Education Answer Date Recorded What is the highest level of school you have completed or the highest degree you have received? 12th grade 08/07/2020 Comments No Sex and Gender Information Value Date Recorded Sex Assigned at Female 03/02/2021 5:45 PM CDT Legal Sex Female 4:13 AM BLUNGER Gender Identity Female 03/02/2021 5:45 PM CDT [...] Office Visit [facility] [address] [phone] Maru Man PA-C [address] [place] [place] [address] 12/20/2024 2:30 PM CDT Office Visit [facility] [address] [place] [phone] Esha Grimm PA-C [address] [place] [phone] 04/16/2025 11:00 AM CDT Virtual Visit [facility] [address] [place] [phone] Meredith Carrera PA-C [address] [place] [address] documented as of this encounter Visit Diagnoses [...] Depression Total Score: 5 08/27/19 1:14 PM BLUNGER documented as of this encounter Care Teams Verse Writer Relationship Specialty Start Date End Date Marija Edgar APRN STREET WORKER PCP - General Nurse Practitioner 04/30/20 04/14/23 Esha Grimm PA-C [address] [place] [phone] PCP - General Family Medicine 05/04/23 Lita Oseguera Personal Advocate & Liaison (PAL) 02/28/20 03/27/[address]N [address]RE[address] WORKER Assigned PCP 06/08/20 04/29/23 Keisha Dotson MD [address] [place] [address] Assigned Neuroscience Provider 06/04/20 04/01/23 Diana Desir [facility] [address] [place] [address] Pharmacist Pharmacist 04/17/21 Rain Galaviz PA-C [address] [place] [address] [address] [place] [id number] Physician Chief Engineer Dermatology 04/28/21 Tavia Wyatt MD [address] [place] [address] [address] [facility][NOTE 3][place] [id number] Dermatology 07/14/[address]N STRE[address] WORKER [address] [place], [place] 6[address] Nurse Practitioner Cardiovascular Disease 09/09/21 Rich Barrett MD [address] [place], [place] 279[address] Physician Ophthalmology 01/21/22 Neil Kent MD 500 [place] [address] Dermatology 02/24/22 Diana Desir, [facility] [address] [place] [address] Assigned MTM Pharmacist 04/07/22 Jelena David OD [address] [facility] [address] Assigned Surgical Provider 05/08/22 10/08/22 Livan Sharif MD [address] [place] [address] Cardiovascular Disease 05/14/22 Catherine Cm MD [address] [place] [address] Cardiovascular Disease 07/21/22 Valery Veronica, PA-C [address] [place] [address] Physician Chief Engineer Dermatology 07/21/22 Catherine Cm MD [address] [place] [address] Assigned Heart and Vascular Provider 07/24/22 11/05/22 Johnny Murillo [address] [facility] 654834 Assigned Musculoskeletal Provider 08/14/22 10/08/22 Brea Quinn APRN STREET WORKER [address] [place] [address] [phone] Nurse Practitioner Dermatology 09/21/22 Brea Quinn APRN STREET WORKER [address] [place] [address] [place] [id number] Assigned Surgical Provider 10/09/22 05/01/24 [place] [address] [facility] [address] [place] [address] Assigned Musculoskeletal Provider 10/09/22 05/01/24 Livan Sharif MD [address] [place], [place] 311475 Assigned Heart and Vascular Provider 11/06/22 11/12/22 Catherine Cm MD [address] [place] [address] Assigned Heart and Vascular Provider 11/13/22 05/27/23 Sydnie Martinez RN Personal Advocate & Liaison (PAL) Family Medicine 03/28/23 07/31/23 Alfonso Renteria MD [address] [facility] 200 [place] [address] Assigned Neuroscience Provider 04/02/23 09/29/24 Cheng Todd PA-C [address] [place] [address] [id number] Assigned PCP 04/30/23 07/15/23 Radha Lomeli, ARLENE STREET WORKER [address] [place] [address] Assigned Heart and Vascular Provider 05/28/23 Jelena David OD [facility] [facility] [address] Ophthalmology 06/15/23 Pao Joseph RN Personal Advocate & Liaison (PAL) Nurse 08/01/23 11/07/23 Esha Grimm PA-C [address] [place] [address] Assigned PCP 07/16/23 Valery Veronica PA-C [address] [place] [address] 110355 Physician Chief Engineer Dermatology 09/19/23 Rey Tay MD [address] [place] [address] [id number] MD Gastroenterology 09/20/23 Rocky Zepeda DO [address] [place] [address] 087005 Physician Gastroenterology 09/20/23 Philip Dumont MD [address] [place] [address] 160265 Physician Ophthalmology 09/22/23 Meredith Carrera PA-C [address] [place] [address] 179885 Assigned Gastroenterology Provider 11/01/23 Neil Kent MD [address] [address] Dermatology 11/02/23 [place] [address] [place] [address] Neurological Surgery 12/26/23 Audrey Waite PA-C [address] [place] [address], [place] [address] Physician Chief Engineer Dermatology 02/28/24 Valery Veronica PA-C [address] [place] [address] Physician Chief Engineer Dermatology 04/10/24 Herminia Hatch MD [address] [place] [address] Assigned Rheumatology Provider 07/02/24 Jelena David OD [address] [place] [address] [place] [address] Ophthalmology 08/30/24 [place] [address] [place] [address] Assigned Neuroscience Provider 09/30/24 Maru Man PA-C [address] [place] [address] Physician Chief Engineer Dermatology 10/03/24 Maru Man PA-C [address] [place] [address] Physician Chief Engineer Dermatology 10/22/24 Jelena David OD [address] [place] [address] [place] [address] Assigned Surgical Provider 10/31/24 documented as of this encounter
--- OUTSIDE RECORDS SUMMARY | 2024-11-21 05:16 | XMS_ITS | Encounter Summary ---
Author Organization [place] Address [address] [place] [address] Care Team Providers Care Branner Machine Tender Name Role Phone Lita Oseguera Unavailable Unavailable Marija Edgar APRN LAWN SPRINKLER INSTALLER Primary Care Provider + Chanelle Mccann APRN CNM Unavailab le Kyara De La Fuente RN Unavailable [phone] Marija Edgar APRN LAWN SPRINKLER INSTALLER Unavailable Mynor Broussard MD Unavailable [phone] Keisha Dotson MD Unavailable Galo Burrell MD Unavailable Unavailable Cristina Wood Unavailable Diana Desir [facility] Unavailable Rain Galaviz PA-C Unavailable Summer Lara MD Unavailable [phone] Summer Lara MD Unavailable [phone] Summer Lara MD Unavailable [phone] Tavia Wyatt MD Unavailable Johnny Murillo MD Unavailable Erica Farrell APRN LAWN SPRINKLER INSTALLER Unavailable VikasTeresita [facility] Unavailable Tavia Wyatt MD Unavailable Diana Desir [facility] Unavailable Rich Barrett MD Unavailable [phone] Neil Kent MD Unavailable Roney Story DP Unavailable Erica Farrell APRN LAWN SPRINKLER INSTALLER Unavailable Diana Desir [facility] Unavailable Jelena David Unavailable Galo Burrell MD Unavailable Unavailable Livan Sharif MD Unavailable Livan Sharif MD Unavailable Catherine Cm MD Unavailable + Valery Veronica-C Unavailable [phone] Catherine Cm MD Unavailable + Johnny Murillo MD Unavailable [phone] Brea Quinn PHOTOGRAPHIC EDITOR LAWN SPRINKLER INSTALLER Unavailable [phone] Brea Quinn PHOTOGRAPHIC EDITOR LAWN SPRINKLER INSTALLER Unavailable [phone] Jose Francisco Johnson MD Unavailable Livan Sharif MD Unavailable Catherine Cm MD Unavailable + Sydnie Martinez RN Unavailable Unavailable Alfonso Renteria MD Unavailable Esha Grimm PA-C Primary Care Provider Cheng Todd PA-C Unavailable Radha Lomeli PHOTOGRAPHIC EDITOR LAWN SPRINKLER INSTALLER Unavailable Jelena David OD Unavailable [phone] Pao Joseph RN Unavailable Unavailable [facility] PA-C Unavailable [phone] Valery Veronica PA-C Unavailable Rey Tay MD Unavailable Rocky Zepeda DO Unavailable Philip Dumont MD Unavailable [phone] Meredith Carrera PA-C Unavailable [phone] Neil Kent MD Unavailable Juan Pablo Emmanuel MD Unavailable [phone] Audrey Waite PA-C Unavailable [phone] JeremíasValery damon PA-C Unavailable Herminia Hatch MD Unavailable Jelena David OD Unavailable Juan Pablo Emmanuel MD Unavailable [phone] Maru Man PA-C Unavailable Maru Man PA-C Unavailable [phone] Jelena David OD Unavailable Encounter Details Date Type Department Care Team (Late st Contact Info) Description 02/06/2021 [facility] Medical Advice [address] [phone] Bob Diop Social History Tobacco [...] Date Recorded PHQ-2 Score 3 09/29/2020 [facility] of Occupat [...] in a alf (including now)? No 08/11/2020 [place] Depression Scale Answer Date Recorded [place] Depression Score 5 01/14/2021 Last EPDS Self Harm Result Not on file 01/14 Education Answer Date Recorded What is the highest level of school you have completed or the highest degree you have received? 12th grade 08/07/2020 Comments No Sex and Gender Information Value Date Recorded Sex Assigned at Female 03/02/2021 5:45 PM CDT Legal Sex Female 4:13 AM BUILDING SPECIALIST Gender Identity Female 03/02/2021 5:45 PM [...] AM CDT Office [facility] [address] [address] Maru Man PA-C [address] [address] 12/20/2024 2:30 PM CDT Office [facility] [address] [place] [phone] Esha Grimm PA-C [address] [place] [address] 04/16/2025 11:00 AM CDT Virtual Visit [facility] [address] [phone] Meredith Carrera PA-C [address] [place] [address] documented as of this encounter Visit Diagnoses Not on filedocumented in this encounter Additional Health Concerns Infection Onset Date Last Indicated Resolved Time Rule Out COVID-19 05/11/2021 05/11/2021 05/13/2021 10:18 AM CDT Rule Out COVID-19 07/13/2021 07/13/2021 07/14/2021 3:04 PM BUILDING SPECIALIST Rule Out COVID-19 07/18/2021 07/18/2021 07/20/2021 1:56 PM BUILDING SPECIALIST COVID-19 07/18/2021 07/18/2021 08/08/2021 11:3 9 PM BUILDING SPECIALIST Rule Out COVID-19 12/18/2021 12/18/2021 12/19/2021 11:34 AM CDT Rule Out COVID-19 02/24/2022 02/24/2022 02/25/2022 1:08 PM CDT Rule Out COVID-19 04/26/2022 04/26/2022 04/26/2022 6:47 AM CDT Rule Out COVID-19 05/17/2022 05/17/2022 05/17/2022 10:20 PM BUILDING SPECIALIST Rule Out COVID-19 06/09/2022 06/09/2022 06/09/2022 9:35 AM BUILDING SPECIALIST COVID-19 06/09/2022 06/09/2022 06/30/2022 11:4 1 PM BUILDING SPECIALIST Rule Out COVID-19 11/10/2022 11/10/2022 11/11/2022 [...] documented as of this encounter Care Teams Branner Machine Tender Relationship Specialty Start Date End Date Marija Edgar APRN LAWN SPRINKLER INSTALLER PCP - General Nurse Practitioner 04/30/20 04/14/23 Esha Grimm PABaldo [address] [place] [phone] PCP - General Family Medicine 05/04/23 Lita Oseguera Personal Advocate & Liaison (PAL) 02/28/20 03/27/23 Chanelle Mccann APRN CNM [address] [place] [address], [address] [place] [address] Assigned OBGYN Provider 05/02/2005/09 Kyara De La Fuente, RN Specialty Switch Repairer Neurology 06/04/20 03/05/21 Marija Edgar APRN LAWN SPRINKLER INSTALLER Assigned PCP 06/08/20 04/29/23 Mynor Broussard MD 6[address] [facility] 500 [place], [place] 923825 Assigned Surgical Provider 06/01/20 11/28/21 Keisha Dotson MD 909 [place], [place] 639795 Assigned Neuroscience Provider 06/04/20 04/01/23 Galo Burrell MD Assigned Heart and Vascular Provider 10/05/20 04/02/22 Cristina Wood Financial Resource Worker 02/09/21 02/09/21 Diana Desir, [facility] [address] [place] [address] Pharmacist Pharmacist 04/17/21 Rain Galaviz PA-C [address] [facility] [address] [place] [phone] Physician 3D Modeler Dermatology 04/28/21 Summer Lara MD [address] [place], [place] [address] Assigned OBGYN Provider 05/10/2105/23 Summer Lara MD [address] [place] [address] [place], [place] 580964 Assigned OBGYN Provider 05/31/21 2 Summer Lara MD [address] [place] [address] 402504 Assigned OBGYN Provider 05/24/2105/30 Tavia Wyatt MD [address] [place] [address] 660254 MD Amato 07/14/21 Johnny Murillo MD [address] [place] [address] Assigned Musculoskeletal Provider 08/30/21 03/17/22 Erica Farrell APRN [facility] 6[address] [facility] [address] [place] [address] Nurse Practitioner Cardiovascular Disease 09/09/21 Teresita Bean [facility] [address] [place] [phone] Pharmacist Pharmacist 09/24/21 09/29/21 Tavia Wyatt MD [address] [place], [place] [phone] Assigned Surgical Provider 11/29/21 05/07/22 Diana Desir, [facility] [address] [place] [address] Assigned MTM Pharmacist 01/02/22 Rich Barrett MD [address] [place], [place] [phone] Physician Ophthalmology 01/21/22 Neil Kent MD 500 [place], [place] 693465 Dermatology 02/24/22 Roney Story DPM [address] [facility] [address] [place], [place] 027187 Assigned Musculoskeletal Provider 03/20/22 08/13/22 Erica Farrell APRN LAWN SPRINKLER INSTALLER [facility]0 [place] [address] Assigned Heart and Vascular Provider 04/03/22 04/16/22 [facility] [address] [place] [address] Assigned MTM Pharmacist 04/07/22 Jelena David OD [address] [place] [address] Assigned Surgical Provider 05/08/22 10/08/22 Galo Burrell MD Assigned Heart and Vascular Provider 04/17/22 06/11/22 Livan Sharif MD [address] [place] 761755 Cardiovascular Disease 05/14/22 Livan Sharif MD [address] [place] [address] Assigned Heart and Vascular Provider 06/12/22 07/23/22 Catherine Cm MD 6405 [facility] [address] [place] [address] Cardiovascular Disease 07/21/22 Valery Veronica, PA-C [address] [place] [address] 792545 Physician 3D Modeler Dermatology 07/21/22 Catherine Cm MD [address] [place] [phone] [place] [address] Assigned Heart and Vascular Provider 07/24/22 11/05/22 Johnny Murillo MD [address] [place] [address] 862734 Assigned Musculoskeletal Provider 08/14/22 10/08/22 Brea Quinn APRN LAWN SPRINKLER INSTALLER [address] [place] [address] 567625 Nurse Practitioner Dermatology 09/21/22 Brea Quinn APRN LAWN SPRINKLER INSTALLER [address] [place] [address] [place] [id number] Assigned Surgical Provider 10/09/22 05/01/24 [place] [address] [facility] [address] Assigned Musculoskeletal Provider 10/09/22 05/01/24 Livan Sharif MD [address] [place], [place] 285315 Assigned Heart and Vascular Provider 11/06/22 11/12/22 Catherine Cm MD [address] [place] [address] Assigned Heart and Vascular Provider 11/13/22 05/27/23 Sydnie Martinez RN Personal Advocate & Liaison (PAL) Family Medicine 03/28/23 07/31/23 Alfonso Renteria MD [address] [facility] [address] [place] [address] Assigned Neuroscience Provider 04/02/23 09/29/24 Cheng Todd PA-C [address] [place] [address] [id number] Assigned PCP 04/30/23 07/15/23 Radha Lomeli, ARLENE LAWN SPRINKLER INSTALLER [address] [place] [address] Assigned Heart and Vascular Provider 05/28/23 Jelena David OD [address] [place] [address] Ophthalmology 06/15/23 Pao Joseph, VJ Personal Advocate & Liaison (PAL) Nurse 08/01/23 11/07/23 Esha Grimm PA-C [address] [place] [phone] Assigned PCP 07/16/23 Valery Veronica PA-C 9 [place], [place] 362355 Physician 3D Modeler Dermatology 09/19/23 Rey Tay MD [address] [place] [address] MD Gastroenterology 09/20/23 Rocky Zepeda DO [address] [place] [address] 112815 Physician Gastroenterology 09/20/23 Philip Dumont MD [address] [place] [address] 952415 Physician Ophthalmology 09/22/23 Meredith Carrera PA-C [address] [place] [address] 963525 Assigned Gastroenterology Provider 11/01/23 Neil Kent MD [address] [address] Dermatology 11/02/23 [place] [address] [place] [address] Neurological Surgery 12/26/23 Audrey Waite PA-C [address] [place] [address] Physician 3D Modeler Dermatology 02/28/24 Valery Veronica PA-C 944692 [facility] [place] [address] Physician 3D Modeler Dermatology 04/10/24 Herminia Hatch MD [address] [place] [address] Assigned Rheumatology Provider 07/02/24 Jelena David OD [address] [place] [address] [place] [address] Ophthalmology 08/30/24 [place] [address] [place] [address] Assigned Neuroscience Provider 09/30/24 Maru Man PA-C [address] [place] [address] Physician 3D Modeler Dermatology 10/03/24 Maru Man PA-C [address] [place] [address] Physician 3D Modeler Dermatology 10/22/24 Jelena David OD [address] [place] [address] [place] [address] Assigned Surgical Provider 10/31/24 documented as of this encounter
--- OUTSIDE RECORDS SUMMARY | 2024-11-21 05:16 | XMS_ITS | Encounter Summary ---
Author Organization [facility] Address [address] [place] [address] Care Team Providers Care [employer] Name Role Phone Lita Oseguera Unavailable Unavailable Marija Edgar APRN GEOSPATIAL IMAGE ANALYST Primary Care Provider + Marija Edgar APRN GEOSPATIAL IMAGE ANALYST Unavailable [phone] Keisha Dotson MD Unavailable Diana Desir [facility] Unavailable Rain Galaviz PA-C Unavailable [phone] Tavia Wyatt MD Unavailable Erica Farrell APRN GEOSPATIAL IMAGE ANALYST Unavailable Rich Barrett MD Unavailable [phone] Neil Kent MD Unavailable Roney Story DPM Unavailable Diana Desir [facility] Unavailable Jelena David OD Unavailable [phone] Livan Sharif MD Unavailable Livan Sharif MD Unavailable Catherine Cm MD Unavailable + Valery Veronica PA-C Unavailable Catherine Cm MD Unavailable + Johnny Murillo MD Unavailable [phone] Brea Quinn GARMENT SEWING MACHINE OPERATOR GEOSPATIAL IMAGE ANALYST Unavailable [phone] Brea Quinn GARMENT SEWING MACHINE OPERATOR GEOSPATIAL IMAGE ANALYST Unavailable [phone] Jose Francisco Johnson MD Unavailable Livan Sharif MD Unavailable Catherine Cm MD Unavailable + Sydnie Martinez RN Unavailable Unavailable Alfonso Renteria MD Unavailable [phone] Esha Grimm PA-C Primary Care Provider Cheng Todd PA-C Unavailable [phone] Radha Lomeli GARMENT SEWING MACHINE OPERATOR GEOSPATIAL IMAGE ANALYST Unavailable Jelena David OD Unavailable Pao Joseph RN Unavailable Unavailable Esha Grimm PA-C Unavailable [phone] Valery Veronica PA-C Unavailable Rey Tay MD Unavailable Rocky Zepeda DO Unavailable Philip Dumont MD Unavailable Meerdith Carrera PA-C Unavailable [phone] Neil Kent MD Unavailable Juan Pablo Emmanuel MD Unavailable Audrey Waite PA-C Unavailable Valery Veronica PA-C Unavailable [phone] Herminia Hatch MD Unavailable Jelena David OD Unavailable [phone] Juan Pablo Emmanuel MD Unavailable [phone] Maru Man PA-C Unavailable + Maru Man PA-C Unavailable + Jelena David Radha OD Unavailable [phone] Encounter Details Date Type Department Care Team (Late st Contact Info) Description 07/02/2022 MyC Medical Advice [address] [address] [facility] [address] [place] [address] Social History Tobacco Use Types Packs/Day Years [...] How often do you attend yazdanism or sabianist serv ices? Never 09/22/2021 Do [...] in a long-term (including now)? No 09/22/2021 Hubertus Depression Scale Answer Date Recorded Hubertus Depression Score 5 01/14/2021 Last EPDS Self Harm Result Not on file 01/14 Education Answer Date Recorded What is the highest level of school you have completed or the highest degree you have received? 12th grade 08/07/2020 Comments No Sex and Gender Information Value Date Recorded Sex Assigned at Female 03/02/2021 5:45 PM CDT Legal Sex Female 4:13 AM CARPET SEWING MACHINE OPERATOR Gender Identity Female 03/02/2021 5:45 PM CDT Sexual Orientation Straight 02/28/2020 12 :51 AM CDT COVID-19 Exposure Response Date Recorded In the last 10 days, have yo u been in contact with someone who was confirmed or suspected to have Coronavirus/COVID-19? No / Unsure 06/25/2022 8:44 AM CARPET SEWING MACHINE OPERATOR documented as of this encounter Plan of Treatment Upcoming Encounters Date Type Department Care Team (Late st Contact Info) Description 11/21/2024 7:00 AM CDT Office Visit [address] [phone] Maru Man PA-C [address] [place] [address] 12/20/2024 2:30 PM CDT Office Visit [facility] [id number] [place] [phone] Esha Grimm PA-C [id number] [place] [phone] 04/16/2025 11:00 AM CDT Virtual Visit [facility] [address] 4th [place] [phone] Meredith Carrera PA-C [address] [place] [address] documented as of this encounter Visit Diagnoses [...] documented as of this encounter Care Teams [employer] Relationship Specialty Start Date End Date Marija Edgar APRN GEOSPATIAL IMAGE ANALYST PCP - General Nurse Practitioner 04/30/20 04/14/23 Esha Grimm PA-C [address] [place] [phone] PCP - General Family Medicine 05/04/23 Lita Oseguera Personal Advocate & Liaison (PAL) 02/28/20 03/27/23 Marija Edgar APRN GEOSPATIAL IMAGE ANALYST Assigned PCP 06/08/20 04/29/23 Keisha Dotson MD [address] [place], [place] 742985 Assigned Neuroscience Provider 06/04/20 04/01/23 Diana Desir, [facility] [address] [place], [place] 138256 Pharmacist Pharmacist 04/17/21 Rain Galaviz PA-C [address] [place] [address] [address] [facility] [place] [address] Physician Fixture Fabricator Repairer Dermatology 04/28/21 Tavia Wyatt MD [address] [place] [address] [address] [facility] [place] [address] Dermatology 07/14/21 Erica Farrell APRN GEOSPATIAL IMAGE ANALYST [address] [place] [address] Nurse Practitioner Cardiovascular Disease 09/09/21 Rich Barrett MD [address] [place] [address] Physician Ophthalmology 01/21/22 Neil Kent MD [address] [place], [place] 995575 Dermatology 02/24/22 Roney Story DPM [address] [facility] [address] [place], [place] 205817 Assigned Musculoskeletal Provider 03/20/22 08/13/22 Diana Desir, [facility] [address] [facility] [place], [place] 457096 Assigned MTM Pharmacist 04/07/22 Jelena David OD [address] [facility] [address] [place] [id number] Assigned Surgical Provider 05/08/22 10/08/22 Livan Sharif MD [address] [place] 733815 Cardiovascular Disease 05/14/22 Livan Sharif MD [address] [place] 076145 Assigned Heart and Vascular Provider 06/12/22 07/23/22 Catherine Cm MD [address] [place] 461655 Cardiovascular Disease 07/21/22 Valery Veronica, PA-C [address] [place], [place] 599845 Physician Fixture Fabricator Repairer Dermatology 07/21/22 Catherine mC MD [address] [place] 656165 Assigned Heart and Vascular Provider 07/24/22 11/05/22 Johnny Murillo MD [address] [address] Assigned Musculoskeletal Provider 08/14/22 10/08/22 Brea Quinn APRN GEOSPATIAL IMAGE ANALYST 500 [place] [address] Nurse Practitioner Dermatology 09/21/22 Brea Quinn APRN GEOSPATIAL IMAGE ANALYST 6401 [facility] [place] [address] Assigned Surgical Provider 10/09/22 05/01/24 [place] [address] [facility] 300 [place] [address] Assigned Musculoskeletal Provider 10/09/22 05/01/24 Livan Sharif MD [address] [facility] [address] [place] [address] Assigned Heart and Vascular Provider 11/06/22 11/12/22 Catherine Cm MD [address] [facility] [address] [place] [address] Assigned Heart and Vascular Provider 11/13/22 05/27/23 Sydnie Martinez RN Personal Advocate & Liaison (PAL) Family Medicine 03/28/23 07/31/23 Alfonso Renteria MD [address] [facility] 200 [place], [place] 402066 Assigned Neuroscience Provider 04/02/23 09/29/24 Cheng Todd PA-C [address] [place] [address] [id number] Assigned PCP 04/30/23 07/15/23 Radha Lomeli APRN CNP [address] [place] [address] Assigned Heart and Vascular Provider 05/28/23 Jelena David OD [address] [facility] [place] [place] [address] MD Ophthalmology 06/15/23 Pao Joseph, VJ Personal Advocate & Liaison (PAL) Nurse 08/01/23 11/07/23 Esha Grimm PA-C [address] [place] [phone] Assigned PCP 07/16/23 Valery Veronica PA-C [address] [place] [address] 035375 Physician Fixture Fabricator Repairer Dermatology 09/19/23 Rey Tay MD [address] [place] [address] 576615 MD Gastroenterology 09/20/23 Rocky Zepeda DO [address] [place] [address] 283545 Physician Gastroenterology 09/20/23 Philip Dumont MD [address] [place] [address] 866995 Physician Ophthalmology 09/22/23 Meredith Carrera PA-C [address] [place] [address] Assigned Gastroenterology Provider 11/01/23 Neil Kent MD [address] [place] [address] MD Dermatology 11/02/23 [place] [address] [place] [address] Neurological Surgery 12/26/23 Audrey Waite PA-C [address] [place] [address] Physician Fixture Fabricator Repairer Dermatology 02/28/24 Valery Veronica PA-C [address] [place] [address] Physician Fixture Fabricator Repairer Dermatology 04/10/24 Herminia Hatch MD [facility] [place], [place] 20112125 Assigned Rheumatology Provider 07/02/24 Jelena David OD [address] [facility] [place] [place] [address] Ophthalmology 08/30/24 [place] [address] [place] [address] Assigned Neuroscience Provider 09/30/24 Maru Man PA-C [address] [place] [address] Physician Fixture Fabricator Repairer Dermatology 10/03/24 Maru Man PA-C [address] [place] [address] Physician Fixture Fabricator Repairer Dermatology 10/22/24 Jelena David OD [address] [place] [address] [place] [address] Assigned Surgical Provider 10/31/24 documented as of this encounter
--- OUTSIDE RECORDS SUMMARY | 2024-11-21 05:16 | XMS_ITS | Encounter Summary ---
Author Organization [facility] Address [address] [place] [address] Care Team Providers Care [employer] Name Role Phone Lita Oseguera Unavailable Unavailable Marija Edgar APRN E COMMERCE STRATEGIST Primary Care Provider + Marija Edgar APRN E COMMERCE STRATEGIST Unavailable Keisha Dotson MD Unavailable Diana Desir [facility] Unavailable Rain Galaviz PA-C Unavailable [phone] Tavia Wyatt MD Unavailable Erica Farrell APRN E COMMERCE STRATEGIST Unavailable Rich Barrett MD Unavailable [phone] Neil [place] MD Unavailable Diana Desir [facility] Unavailable Jelena David OD Unavailable Livan Sharif MD Unavailable Catherine Cm MD Unavailable + Valery Veronica PA-C Unavailable Catherine Cm MD Unavailable + Johnny Murillo MD Unavailable [phone] Brea Quinn GROCERY CADDY E COMMERCE STRATEGIST Unavailable [phone] Brea Quinn GROCERY CADDY E COMMERCE STRATEGIST Unavailable [phone] Jose Francisco oJhnson MD Unavailable Livan Sharif MD Unavailable Catherine Cm MD Unavailable + Sydnie Martinez RN Unavailable Unavailable Alfonso Renteria MD Unavailable [phone] Esha Grimm PA-C Primary Care Provider Cheng Todd PA-C Unavailable [phone] Radha Lomeli APRN E COMMERCE STRATEGIST Unavailable Jelena David OD Unavailable Pao Joseph RN Unavailable Unavailable Esha Grimm PA-C Unavailable [phone] Valery Veronica PA-C Unavailable Rey Tay MD Unavailable Rocky Zepeda DO Unavailable Philip Dumont MD Unavailable Meredith Carrera PA-C Unavailable [phone] Neil Kent MD Unavailable Juan Pablo Emmanuel MD Unavailable Audrey Waite PA-C Unavailable Valery Veronica PA-C Unavailable Herminia Hatch MD Unavailable Jelena David OD Unavailable Juan Pablo Emmanuel MD Unavailable Maru Man PA-C Unavailable [phone] Maru Man PA-C Unavailable [phone] Reason for Visit * Reason Onset Date Comments Call Back 09/21/2022 Change of provid er request Encounter Details Date Type Department Care Team (Late st Contact Info) Description 09/21/2022 Telephone [facility] [address], [address] [place] [address] Keisha Dotson MD [address] [place] [address] Call Back (Change of provider request) [...] Date Recorded PHQ-2 Score 1 10/24/2024 [facility]at [facility] - Occupational Stress Questionnaire Answer Date Recorded [...] exercise at this level? 20 min 05/07/2024 [place] Depression Scale Answer Date Recorded [...] CDT Legal Sex Female 4:13 AM STAFF NUCLEAR MEDICINE TECHNOLOGIST Gender Identity Female 03/02/2021 5:45 PM [...] another provider. Please call Pt back at [phone] to scheduled or advise. Action Taken: Message routed to: [facility] Neu[facility] Travel Screening: Not Applicable documented in this encounter Plan of Treatment Upcoming Encounters Date Type Department Care Team (Late st Contact Info) Description 11/21/2024 7:00 AM CDT Office Visit [facility] [place] [address] [address] Maru Man PA-C [address] [address] 12/20/2024 2:30 PM CDT Office Visit [facility] [address] [place] [phone] Esha Grimm PA-C [address] [place] [address] 04/16/2025 11:00 AM CDT Virtual Visit [facility]ology Clinic [address] [phone] Meredith Carrera PA-C [address] [place] [address] documented as of this encounter Visit Diagnoses [...] Total Score: 5 08/27/19 23 1:14 PM STAFF NUCLEAR MEDICINE TECHNOLOGIST documented as of this encounter Care Teams Airport Operations Manager Relationship Specialty Start Date End Date Marija Edgar APRN E COMMERCE STRATEGIST PCP - General Nurse Practitioner 04/30/20 04/14/23 Esha Grimm PA-C [address] [place] [address] PCP - General Family Medicine 05/04/23 Lita Oseguera Personal Advocate & Liaison (PAL) 02/28/20 03/27/23 Marija Edgar APRN E COMMERCE STRATEGIST Assigned PCP 06/08/20 04/29/23 Keisha Dotson MD [address] [place], [place] [address] Assigned Neuroscience Provider 06/04/20 04/01/23 Diana Desir, [facility] [address] [place], [place] [address]776 Pharmacist Pharmacist 04/17/21 Rain Galaviz PA-C [address] [place] [address] [address] [place] [address] Physician Pierogi Maker Dermatology 04/28/21 Tavia Wyatt MD [address] [place] [address] [place] [address] Dermatology 07/14/21 rEica Farrell APRN E COMMERCE STRATEGIST [address] [facility] [address] [place] [address] Nurse Practitioner Cardiovascular Disease 09/09/21 Rich Barrett MD [address] [place] 4990[address] Physician Ophthalmology 01/21/22 Neil Kent MD [address] [place] [address] Dermatology 02/24/22 Diana Desir, [facility] [address] [place] [address] Assigned MTM Pharmacist 04/07/22 Jelena David OD [address] [place] [address] Assigned Surgical Provider 05/08/22 10/08/22 Livan Sharif MD [address] [place] [address] Cardiovascular Disease 05/14/22 Catherine Cm MD [address] [place] [address] Cardiovascular Disease 07/21/22 Valery Veronica PAUcheC 909 [place] [address] Physician Pierogi Maker Dermatology 07/21/22 Catherine Cm MD [address] [place] [address] Assigned Heart and Vascular Provider 07/24/22 11/05/22 Johnny Murillo MD [address] [facility] [address] [place] [address] Assigned Musculoskeletal Provider 08/14/22 10/08/22 Brea Quinn APRN E COMMERCE STRATEGIST 500 [place], [place] 427445 Nurse Practitioner Dermatology 09/21/22 Brea Quinn APRN E COMMERCE STRATEGIST 6401 [facility] [address] Assigned Surgical Provider 10/09/22 05/01/24 [place] [address] [address] Assigned Musculoskeletal Provider 10/09/22 05/01/24 Livan Sharif MD 6[address] [facility] [address] [place] [address] Assigned Heart and Vascular Provider 11/06/22 11/12/22 Catherine Cm MD [address] [facility] [address] [place] [address] Assigned Heart and Vascular Provider 11/13/22 05/27/23 Sydnie Martinez RN Personal Advocate & Liaison (PAL) Family Medicine 03/28/23 07/31/23 Alfonso Renteria MD [address] [facility] 200 [place], [place] 241506 Assigned Neuroscience Provider 04/02/23 09/29/24 Cheng Todd PA-C [address] [place] [address] [phone] Assigned PCP 04/30/23 07/15/23 Radha Lomeli APRN E COMMERCE STRATEGIST 6405 [facility] [address] [place] [address] Assigned Heart and Vascular Provider 05/28/23 Jelena David OD [address] [place] [address] Ophthalmology 06/15/23 Pao Joseph, RN Personal Advocate & Liaison (PAL) Nurse 08/01/23 11/07/23 Ehsa Grimm PA-C [address] [place] [phone] Assigned PCP 07/16/23 Valery Veronica PA-C [address] [place] [address] Physician Pierogi Maker Dermatology 09/19/23 Rey Tay MD [address] [place] [address] 339795 Gastroenterology 09/20/23 Rocky Zepeda DO [address] [place] [address] 937915 Physician Gastroenterology 09/20/23 Philip Dumont MD [address] [place] [address] 175535 Physician Ophthalmology 09/22/23 Meredith Carrera PA-C [address] [place] [address] Assigned Gastroenterology Provider 11/01/23 Neil Kent MD [address] [address] Dermatology 11/02/23 [place] [address] [place], [place] [address] Neurological Surgery 12/26/23 Audrey Waite PA-C 500 [place] [address] Physician Pierogi Maker Dermatology 02/28/24 Valery Veronica PA-C 483408 [place], [place] [address] Physician Pierogi Maker Dermatology 04/10/24 Herminia Hatch MD [facility]5 [place], [place] 79[address] Assigned Rheumatology Provider 07/02/24 Jelena David OD [address] [place] [address] Ophthalmology 08/30/24 [place] [address] [place] [address] Assigned Neuroscience Provider 09/30/24 Maru Man PA-C [address] [place] [address] Physician Pierogi Maker Dermatology 10/03/24 Maru Man PA-C [address] [place] [address] Physician Pierogi Maker Dermatology 10/22/24 documented as of this encounter
--- OUTSIDE RECORDS SUMMARY | 2024-11-21 05:16 | XMS_ITS | Encounter Summary ---
Author Organization [facility] Address [address] [place] [address] Care Team Providers Care Ex Chef Name Role Phone Lita Oseguera Unavailable Unavailable Marija Edgar ELECTRIC PILE DRIVER OPERATOR MOLDING FITTER Primary Care Provider + Chanelle Mccann ELECTRIC PILE DRIVER OPERATOR CNM Unavailab le Marija Edgar APRN MOLDING FITTER Unavailable Mynor Broussard MD Unavailable [phone] Keisha Dotson MD Unavailable [phone] Galo Burrell MD Unavailable Unavailable Diana Desir [facility] Unavailable [phone] Rain Galaviz PA-C Unavailable Summer Lara MD Unavailable [phone] Summer Lara MD Unavailable [phone] Summer Lara MD Unavailable [phone] Tavia Wyatt MD Unavailable Johnny Murillo MD Unavailable Erica Farrell ELECTRIC PILE DRIVER OPERATOR MOLDING FITTER Unavailable Teresita Bean [facility] Unavailable [phone] Tavia Wyatt MD Unavailable DesirDiana [facility] Unavailable Rich Barrett MD Unavailable Neil Kent MD Unavailable Roney StoryM Unavailable [phone] Erica Farrell APRN MOLDING FITTER Unavailable Diana Desir [facility] Unavailable [phone] Jelena David OD Unavailable [phone] Galo Burrell MD Unavailable Unavailable Livan Sharif MD Unavailable Livan Sharif MD Unavailable Catherine Cm MD Unavailable + Valery VeronicaC Unavailable [phone] Catherine Cm MD Unavailable + Johnny Murillo MD Unavailable [phone] Brea Quinn ELECTRIC PILE DRIVER OPERATOR MOLDING FITTER Unavailable [phone] Brea Quinn ELECTRIC PILE DRIVER OPERATOR MOLDING FITTER Unavailable [phone] Jose Francisco Johnson MD Unavailable Livan Sharif MD Unavailable Catherine Cm MD Unavailable + Sydnie Martinez RN Unavailable Unavailable Alfonso Renteria MD Unavailable Esha GrimmC Primary Care Provider Cheng Todd-C Unavailable [phone] Radha Lomeli APRN MOLDING FITTER Unavailable [phone] Jelena David OD Unavailable Pao Joseph RN Unavailable Unavailable Alfa, Esha M PA-C Unavailable [phone] Valery Veronica PA-C Unavailable [phone] Rey Tay MD Unavailable Rocky Zepeda DO Unavailable Philip Dumont MD Unavailable Meredith Carrera PA-C Unavailable [phone] Neil Kent MD Unavailable Juan Pablo Emmanuel MD Unavailable [phone] Audrey Waite PA-C Unavailable Valery Veronica PA-C Unavailable Herminia Hatch MD Unavailable Jelena David OD Unavailable [phone] Juan Pablo Emmanuel MD Unavailable Maru Man PA-C Unavailable Maru Man PA-C Unavailable Jelena David OD Unavailable Encounter Details Date Type Department Care Team (Late st Contact Info) Description 04/17/2021 [facility] [address] [address] Diana Desir, [facility] [address] [place], [place] [phone] Social History Tobacco Use Types Packs/Day Years [...] Recorded PHQ-2 Score 0 04/02/2021 [facility] [...] in a detention (including now)? No 08/11/2020 [place] Depression Scale Answer Date Recorded [place] Depression Score 5 01/14/2021 Last EPDS Self [...] Visit [facility] [place] [address] [address] Maru Man PA-C [address] [address] 12/20/2024 2:30 PM CDT Office Visit [facility] [address] [place] [address] Esha Grimm PA-C [id number] [place] [address] 04/16/2025 11:00 AM CDT Virtual Visit [facility] [address] [phone] Meredith Carrera PA-C [address] [place] [address] 519305 documented as of this encounter Visit Diagnoses [...] documented as of this encounter Care Teams Ex Chef Relationship Specialty Start Date End Date Marija Edgar APRN MOLDING FITTER PCP - General Nurse Practitioner 04/30/20 04/14/23 Esha Grimm PA-C [address] [place] [phone] PCP - General Family Medicine 05/04/23 Lita Oseguera Personal Advocate & Liaison (PAL) 02/28/20 03/27/23 Chanelle Mccann APRN CNM [id number] [place] [address], [address] [place] [address] Assigned OBGYN Provider 05/02/2005/09 Marija Edgar APRN CNP Assigned PCP 06/08/20 04/29/23 Mynor Broussard MD [address] [facility] 500 [place] [address] Assigned Surgical Provider 06/01/20 11/28/21 Keisha Dotson MD 909 [place] [address] Assigned Neuroscience Provider 06/04/20 04/01/23 Galo Burrell MD Assigned Heart and Vascular Provider 10/05/20 04/02/22 [facility] [address] [place] [address] Pharmacist Pharmacist 04/17/21 Rain Galaviz PA-C [address] [place] [address] [address] [place] [address] Physician Well Service Pump Equipment Operator Dermatology 04/28/21 Summer Lara MD [address] [place] [address] Assigned OBGYN Provider 05/10/2105/23 Summer Lara MD [address] [place] [address] Assigned OBGYN Provider 05/31/21 2 Summer Lara MD [address] [place], [place] 618624 Assigned OBGYN Provider 05/24/2105/30 Tavia Wyatt MD [address] [place], [place] 5685[address] Dermatology 07/14/21 Johnny Murillo MD [address] [place], [place] [address]134 Assigned Musculoskeletal Provider 08/30/21 03/17/22 Erica Farrell APRN MOLDING FITTER [address] [facility] [address] [place] [address] Nurse Practitioner Cardiovascular Disease 09/09/21 Teresita Bean [facility] [address] [place] [phone] Pharmacist Pharmacist 09/24/21 09/29/21 Tavia Wyatt MD [facility] [place], [place] [address] Assigned Surgical Provider 11/29/21 05/07/22 Diana Desir [facility] [address] [place] [address] Assigned MTM Pharmacist 01/02/22 Rich Barrett MD [address] [place] [address] Physician Ophthalmology 01/21/22 Neil Kent MD 500 [place] [address] Dermatology 02/24/22 Roney Story DPM [address] [facility] [address] [place] [address] Assigned Musculoskeletal Provider 03/20/22 08/13/22 Erica Farrell APRN MOLDING FITTER 1700 [place] [address] Assigned Heart and Vascular Provider 04/03/22 04/16/22 Diana Desir, [facility] [address] [place] [address] Assigned MTM Pharmacist 04/07/22 Jelena David OD [address] [facility] [address] Assigned Surgical Provider 05/08/22 10/08/22 Galo Burrell MD Assigned Heart and Vascular Provider 04/17/22 06/11/22 Livan Sharif MD [address] [place] [address] Cardiovascular Disease 05/14/22 Livan Sharif MD [address] [place] [address] Assigned Heart and Vascular Provider 06/12/22 07/23/22 Catherine Cm MD [address] [place] [address] Cardiovascular Disease 07/21/22 Valery Veronica, [facility] [address] [place] [address] Physician Well Service Pump Equipment Operator Dermatology 07/21/22 Catherine Cm MD [address] [facility] [address] [place] [address] Assigned Heart and Vascular Provider 07/24/22 11/05/22 Johnny Murillo MD [address] [place] [address] Assigned Musculoskeletal Provider 08/14/22 10/08/22 Brea Quinn APRN MOLDING FITTER [address] [place] [address] 718145 Nurse Practitioner Dermatology 09/21/22 Brea Quinn APRN MOLDING FITTER [address] [place] [address] [place] [address] Assigned Surgical Provider 10/09/22 05/01/24 [place] [address] [place] [address] Assigned Musculoskeletal Provider 10/09/22 05/01/24 Livan Sharif MD [address] [place] [address] Assigned Heart and Vascular Provider 11/06/22 11/12/22 Catherine Cm MD [address] [place] [address] Assigned Heart and Vascular Provider 11/13/22 05/27/23 Sydnie Martinez RN Personal Advocate & Liaison (PAL) Family Medicine 03/28/23 07/31/23 Alfonso Renteria MD [address] [facility] [address] [place] [address] Assigned Neuroscience Provider 04/02/23 09/29/24 Cheng Todd PA-C [address] [place] [address] [phone] Assigned PCP 04/30/23 07/15/23 Radha Lomeli, ARLENE MOLDING FITTER [address] [place] [address] Assigned Heart and Vascular Provider 05/28/23 Jelena David OD [address] [facility] [address] Ophthalmology 06/15/23 Poa Joseph, VJ Personal Advocate & Liaison (PAL) Nurse 08/01/23 11/07/23 Esha Grimm PA-C [address] [place] [phone] Assigned PCP 07/16/23 Valery Veronica PA-C 909 [place], [place] 9[address] Physician Well Service Pump Equipment Operator Dermatology 09/19/23 Rey Tay MD [address] [place] [address] MD Gastroenterology 09/20/23 Rocky Zepeda DO [address] [place] [address] 021635 Physician Gastroenterology 09/20/23 Philip Dumont MD [address] [place] [address] 193085 Physician Ophthalmology 09/22/23 Meredith Carrera PA-C [address] [place] [address] 603005 Assigned Gastroenterology Provider 11/01/23 Neil Kent MD [address] [address] Dermatology 11/02/23 [place] [address] [address] [facility] [place] [address] Neurological Surgery 12/26/23 Audrey Waite PA-C [address] [place] [address] Physician Well Service Pump Equipment Operator Dermatology 02/28/24 Valery Veronica PA-C 026120 [place] [address] Physician Well Service Pump Equipment Operator Dermatology 04/10/24 Herminia Hatch MD [address] [place] [address] Assigned Rheumatology Provider 07/02/24 [place] [address] [place] [address] [place] [address] Ophthalmology 08/30/24 [place] [address] [place] [address] Assigned Neuroscience Provider 09/30/24 Maru Man PA-C [address] [place] [address] Physician Well Service Pump Equipment Operator Dermatology 10/03/24 Maru Man PA-C [address] [place] [address] Physician Well Service Pump Equipment Operator Dermatology 10/22/24 Jelena David OD [address] [facility] [place] [address] Assigned Surgical Provider 10/31/24 documented as of this encounter
--- OUTSIDE RECORDS SUMMARY | 2024-11-21 05:16 | XMS_ITS | Encounter Summary ---
Author Organization [facility] Address [address] [place] [address] Care Team Providers Care Scientific Manager Name Role Phone Lita Oseguera Unavailable Unavailable Marija Edgar PHARMACY SPECIALIST CERTIFIED PERSONAL CHEF Primary Care Provider + Chanelle Mccann PHARMACY SPECIALIST CNM Unavailab le Marija Edgar APRN CERTIFIED PERSONAL CHEF Unavailable Mynor Broussard MD Unavailable [phone] Keisha Dotson MD Unavailable Galo Burrell MD Unavailable Unavailable Diana Desir [facility] Unavailable Rain Galaviz PA-C Unavailable Summer Lara MD Unavailable [phone] Summer Lara MD Unavailable Summer Lara MD Unavailable [phone] Tavia Wyatt MD Unavailable Johnny Murillo MD Unavailable Erica Farrell PHARMACY SPECIALIST CERTIFIED PERSONAL CHEF Unavailable Teresita Bean [facility] Unavailable Tavia Wyatt MD Unavailable DesirDiana [facility] Unavailable Rich Barrett MD Unavailable Neil Kent MD Unavailable Roney StoryM Unavailable [phone] Erica Farrell APRN CERTIFIED PERSONAL CHEF Unavailable Diana Desir [facility] Unavailable [phone] Jelena David OD Unavailable Galo Burrell MD Unavailable Unavailable Livan Sharif MD Unavailable Livan Sharif MD Unavailable Catherine Cm MD Unavailable + Valery VeronicaC Unavailable [phone] Catherine Cm MD Unavailable + Johnny Murillo MD Unavailable [phone] Brea Quinn PHARMACY SPECIALIST CERTIFIED PERSONAL CHEF Unavailable [phone] Brea Quinn PHARMACY SPECIALIST CERTIFIED PERSONAL CHEF Unavailable [phone] Jose Francisco Johnson MD Unavailable Livan Sharif MD Unavailable Catherine Cm MD Unavailable + Sydnie Martinez RN Unavailable Unavailable Alfonso Renteria MD Unavailable Esha GrimmC Primary Care Provider Cheng Todd-C Unavailable [phone] Radha Lomeli APRN CERTIFIED PERSONAL CHEF Unavailable [phone] Jelena David OD Unavailable Pao Joseph RN Unavailable Unavailable Alfa, Esha M PA-C Unavailable [phone] Valery Veronica PA-C Unavailable [phone] Rey Tay MD Unavailable Rocky Zepeda DO Unavailable Philip Dumont MD Unavailable Meredith Carrera PA-C Unavailable [phone] Neil Kent MD Unavailable Juan Pablo Emmanuel MD Unavailable Audrey Waite PA-C Unavailable [phone] Valery Veronica PA-C Unavailable Herminia Hatch MD Unavailable Jelena David OD Unavailable [phone] Juan Pablo Emmanuel MD Unavailable [phone] Maru Man PA-C Unavailable [phone] Maru Man PA-C Unavailable [phone] Jelena David OD Unavailable [phone] Encounter Details Date Type Department Care Team (Late st Contact Info) Description 04/28/2021 [facility] Advice [address] [address] Lauren Gan, RN Social History [...] Answer Date Recorded PHQ-2 Score 0 04/02/2021 [facility] of Occupat ional Health - Occupational Stress [...] in a usp (including now)? No 08/11/2020 [place] Depression Scale Answer Date Recorded [place] [...] PM CDT Legal Sex Female 4:13 AM DOUBLE NEEDLE STITCHER Gender Identity Female 03/02/2021 5:45 PM [...] Description 11/21/2024 7:00 AM CDT Office Visit [facility] [place] [address] [phone] Maru Man PA-C [address] [address] 12/20/2024 2:30 PM CDT Office Visit [facility] [address] [place] [phone] Esha Grimm PA-C [address] [place] [address] 04/16/2025 11:00 AM CDT Virtual Visit [facility] [address] [phone] Meredith Carrera PA-C [address] [place] [address] documented as of this encounter Visit Diagnoses Not on filedocumented in this encounter Additional Health Concerns Infection Onset Date Last Indicated Resolved Time Rule Out COVID-19 05/11/2021 05/11/2021 05/13/2021 10:18 AM CDT Rule Out COVID-19 07/13/2021 07/13/2021 07/14/2021 3:04 PM DOUBLE NEEDLE STITCHER Rule Out COVID-19 07/18/2021 07/18/2021 07/20/2021 1:56 PM DOUBLE NEEDLE STITCHER COVID-19 07/18/2021 07/18/2021 08/08/2021 11:3 9 PM DOUBLE NEEDLE STITCHER Rule Out COVID-19 12/18/2021 12/18/2021 12/19/2021 11:34 AM CDT Rule Out COVID-19 02/24/2022 02/24/2022 02/25/2022 1:08 PM CDT Rule Out COVID-19 04/26/2022 04/26/2022 04/26/2022 6:47 AM CDT Rule Out COVID-19 05/17/2022 05/17/2022 05/17/2022 10:20 PM DOUBLE NEEDLE STITCHER Rule Out COVID-19 06/09/2022 06/09/2022 06/09/2022 9:35 AM DOUBLE NEEDLE STITCHER COVID-19 06/09/2022 06/09/2022 06/30/2022 11:4 1 PM DOUBLE NEEDLE STITCHER Rule Out COVID-19 11/10/2022 11/10/2022 11/11/2022 12:17 [...] documented as of this encounter Care Teams Scientific Manager Relationship Specialty Start Date End Date Marija Edgar APRN CERTIFIED PERSONAL CHEF PCP - General Nurse Practitioner 04/30/20 04/14/23 Esha Grimm PA-C [address] [place] [phone] PCP - General Family Medicine 05/04/23 Lita Oseguera Personal Advocate & Liaison (PAL) 02/28/20 03/27/23 Chanelle Mccann APRN [place]dam [address] [address] Assigned OBGYN Provider 05/02/2005/09 Marija Edgar APRN CERTIFIED PERSONAL CHEF Assigned PCP 06/08/20 04/29/23 Mynor Broussard MD 6[address] [facility] 500 [place] [address] Assigned Surgical Provider 06/01/20 11/28/21 Keisha Dotson MD 909 [place] [address] Assigned Neuroscience Provider 06/04/20 04/01/23 Galo Burrell MD Assigned Heart and Vascular Provider 10/05/20 04/02/22 [facility] [address] [place] [address] Pharmacist Pharmacist 04/17/21 Rain Galaviz PA-C [address] [facility] [address] [place] [address] Physician News Reporter Dermatology 04/28/21 Summer Lara MD [address] [place] [address] Assigned OBGYN Provider 05/10/2105/23 Summer Lara MD [address] [place] [address] Assigned OBGYN Provider 05/31/21 2 Summer Lara MD [address] [place] [address] Assigned OBGYN Provider 05/24/2105/30 Tavia Wyatt MD [address] [place] [address] Dermatology 07/14/21 Johnny Murillo MD [address] [facility] [address] [place] [address] Assigned Musculoskeletal Provider 08/30/21 03/17/22 Erica Farrell APRN CERTIFIED PERSONAL CHEF [address] [facility] [address] [place] [address] Nurse Practitioner Cardiovascular Disease 09/09/21 [facility] [address] [place] [phone] Pharmacist Pharmacist 09/24/21 09/29/21 Tavia Wyatt MD [address] [place] [address] Assigned Surgical Provider 11/29/21 05/07/22 [facility] 3033 [place] [address] Assigned MTM Pharmacist 01/02/22 [place] [address] [place] [address] Physician Ophthalmology 01/21/22 Neil Kent MD 500 [place] [address] Dermatology 02/24/22 Roney Story DPM [address] [facility] [address] [place] [address] Assigned Musculoskeletal Provider 03/20/22 08/13/22 Erica Farrell APRN CERTIFIED PERSONAL CHEF 1700 [place] [address] Assigned Heart and Vascular Provider 04/03/22 04/16/22 Diana Desir, [facility] 3033 [place] [address] Assigned MTM Pharmacist 04/07/22 Jelena David OD [address] [facility] [place] [address] Assigned Surgical Provider 05/08/22 10/08/22 Galo Burrell MD Assigned Heart and Vascular Provider 04/17/22 06/11/22 Livan Sharif MD [address] [place] [address] Cardiovascular Disease 05/14/22 Livan Sharif MD [address] [place] [address] Assigned Heart and Vascular Provider 06/12/22 07/23/22 Catherine mC MD [address] [place] [address] Cardiovascular Disease 07/21/22 Valery Veronica PA-C 9 [place], [place] [address] Physician News Reporter Dermatology 07/21/22 Catherine Cm MD [address] [place] [address] Assigned Heart and Vascular Provider 07/24/22 11/05/22 Johnny Murillo MD [address] [place] [address] Assigned Musculoskeletal Provider 08/14/22 10/08/22 Brea Quinn APRN CERTIFIED PERSONAL CHEF [address] [place] [address] Nurse Practitioner Dermatology 09/21/22 Brea Quinn APRN CERTIFIED PERSONAL CHEF [address] [place] [address] Assigned Surgical Provider 10/09/22 05/01/24 [place] [address] [place] [address] [address] Assigned Musculoskeletal Provider 10/09/22 05/01/24 Livan Sharif MD [address] [place] [address] Assigned Heart and Vascular Provider 11/06/22 11/12/22 Catherine Cm MD [address] [place] [address] Assigned Heart and Vascular Provider 11/13/22 05/27/23 Sydnie Martinez, RN Personal Advocate & Liaison (PAL) Family Medicine 03/28/23 07/31/23 Alfonso Renteria MD 5775 [facility] 200 [place] [address] Assigned Neuroscience Provider 04/02/23 09/29/24 Cheng Todd PA-C [address] [place] [address] [phone] Assigned PCP 04/30/23 07/15/23 Radha Lomeli APRN CERTIFIED PERSONAL CHEF [address] [place] [address] Assigned Heart and Vascular Provider 05/28/23 Jelena David OD [address] [facility] [place] [address] Ophthalmology 06/15/23 Pao Joseph RN Personal Advocate & Liaison (PAL) Nurse 08/01/23 11/07/23 Esha Grimm PA-C [address] [place] [address] Assigned PCP 07/16/23 Valery Veronica PA-C [address] [place] [address] 226855 Physician News Reporter Dermatology 09/19/23 Rey Tay MD [address] [place] [address] MD Gastroenterology 09/20/23 Rocky Zepeda DO [address] [place] [address] Physician Gastroenterology 09/20/23 Philip Dumont MD [address] [place] [address] Physician Ophthalmology 09/22/23 Meredith Carrera PA-C [address] [place] [address] Assigned Gastroenterology Provider 11/01/23 Neil Kent MD [address] [place] [address] 952640 MD Dermatology 11/02/23 [place] [address] [place] [address] 790267 Neurological Surgery 12/26/23 Audrey Waite PA-C [address] [place] [address] Physician News Reporter Dermatology 02/28/24 Valery Veronica PA-C 523080 [address], [place] [address] Physician News Reporter Dermatology 04/10/24 Herminia Hatch MD [address] [place] [address] Assigned Rheumatology Provider 07/02/24 Jelena David OD [address] [facility] [place] [address] Ophthalmology 08/30/24 [place] [address] [place] [address] Assigned Neuroscience Provider 09/30/24 Maru Man PA-C [address] [place] [address] Physician News Reporter Dermatology 10/03/24 Maru Man PA-C [address] [place] [address] Physician News Reporter Dermatology 10/22/24 Jelena David OD [address] [facility] [place] [address] Assigned Surgical Provider 10/31/24 documented as of this encounter
--- OUTSIDE RECORDS SUMMARY | 2024-11-21 05:16 | XMS_ITS | Encounter Summary ---
Author Organization [facility] Address [address] [place] [address] Care Team Providers Care Abrading Machine Tender Name Role Phone Lita Oseguera Unavailable Unavailable Marija Edgar APRN FILTROSE CRUSHER Primary Care Provider + Marija Edgar APRN FILTROSE CRUSHER Unavailable [phone] Keisha Dotson MD Unavailable Diana Desir [facility] Unavailable Rain Galaviz PA-C Unavailable Tavia Wyatt MD Unavailable Erica Farrell APRN FILTROSE CRUSHER Unavailable Rich Barrett MD Unavailable [phone] Neil Kent MD Unavailable Roney Story DPM Unavailable Diana Desir [facility] Unavailable [phone] Jelena David OD Unavailable Livan Sharif MD Unavailable Livan Sharif MD Unavailable Catherine Cm MD Unavailable + Valery Veronica PA-C Unavailable Catherine Cm MD Unavailable + Johnny Murillo MD Unavailable [phone] Brea Quinn EXECUTIVE COMMUNITY PLANNING FILTROSE CRUSHER Unavailable [phone] Brea Quinn EXECUTIVE COMMUNITY PLANNING FILTROSE CRUSHER Unavailable [phone] Jose Francisco Johnson MD Unavailable Livan Sharif MD Unavailable Catherine Cm MD Unavailable + Sydnie Martinez RN Unavailable Unavailable Alfonso Renteria MD Unavailable [phone] Esha Grimm PA-C Primary Care Provider Cheng Todd PA-C Unavailable [phone] Radha Lomeli EXECUTIVE COMMUNITY PLANNING FILTROSE CRUSHER Unavailable Jelena David OD Unavailable Pao Joseph RN Unavailable Unavailable Esha Grimm PA-C Unavailable [phone] Valery Veronica PA-C Unavailable Rey Tay MD Unavailable Rocky Zepeda DO Unavailable Philip Dumont MD Unavailable Meredith Carrera PA-C Unavailable Neil Kent MD Unavailable Juan Pablo Emmanuel MD Unavailable [phone] Audrey Waite PA-C Unavailable Valery Veronica PA-C Unavailable [phone] Herminia Hatch MD Unavailable Jelena David OD Unavailable [phone] Juan Pablo Emmanuel MD Unavailable [phone] Maru Man PA-C Unavailable + Maru Man PA-C Unavailable + Frankie Jelena Radha OD Unavailable [phone] Encounter Details Date Type Department Care Team (Late st Contact Info) Description 07/20/2022 MyC Medical Advice [facility] [address] [place] [address] [address] [place] [address] Pao Donahue RN Social History [...] How often do you attend baptism or catholic serv ices? Never 09/22/2021 Do [...] Administer PHQ-9 if positive 1 05/13/2022 [facility] of Occupat ional [facility] - Occupational Stress [...] a group home (including now)? No 09/22/2021 [place] Depression Scale Answer Date Recorded [place] Depression Score 5 01/14/2021 Last EPDS Self Harm Result Not on file 01/14 Education Answer Date Recorded What is the highest level of school you have completed or the highest degree you have received? 12th grade 08/07/2020 Comments No Sex and Gender Information Value Date Recorded Sex Assigned at Female 03/02/2021 5:45 PM CDT Legal Sex Female 4:13 AM SUPERVISOR VENDOR QUALITY Gender Identity Female 03/02/2021 5:45 PM CDT Sexual Orientation Straight 02/28/2020 12 :51 AM CDT COVID-19 Exposure Response Date Recorded In the last 10 days, have yo u been in contact with someone who was confirmed or suspected to have Coronavirus/COVID-19? No / Unsure 07/23/2022 6:45 AM SUPERVISOR VENDOR QUALITY documented as of this encounter Plan of Treatment Upcoming Encounters Date Type Department Care Team (Late st Contact Info) Description 11/21/2024 7:00 AM CDT Office Visit [facility] [address] [address] Maru Man PA-C [address] [place] [address] 12/20/2024 2:30 PM CDT Office Visit [facility] [address] [place] [address] Esha Grimm PA-C [id number] [place] [address] 04/16/2025 11:00 AM CDT Virtual Visit [facility] Gastroenterology Clinic [address] [place] [phone] Meredith Carrera PA-C [address] [place] [address] documented as of this encounter Visit Diagnoses [...] documented as of this encounter Care Teams Abrading Machine Tender Relationship Specialty Start Date End Date Marija Edgar APRN FILTROSE CRUSHER PCP - General Nurse Practitioner 04/30/20 04/14/23 Esha Grimm PA-C [address] [place] [phone] PCP - General Family Medicine 05/04/23 Lita Oseguera Personal Advocate & Liaison (PAL) 02/28/20 03/27/23 Marija Edgar APRN FILTROSE CRUSHER Assigned PCP 06/08/20 04/29/23 Keisha Dotson MD [address] [place] [address] Assigned Neuroscience Provider 06/04/20 04/01/[address] [facility] [address] [place] [address] Pharmacist Pharmacist 04/17/21 Rain Galaviz PA-C [address] [place] [address] [address] [place] [address] Physician Client Director Dermatology 04/28/21 Tavia Wyatt MD [address] [place] [address] [address] [place] [address] Dermatology 07/14/21 Erica Farrell APRN FILTROSE CRUSHER [address] [place], [place] 24[address] Nurse Practitioner Cardiovascular Disease 09/09/21 Rich Barrett MD [address] [place], [place] [address] Physician Ophthalmology 01/21/22 Neil Kent MD 500 [place] [address] Dermatology 02/24/22 Roney Story DPM [address] [facility] 300 [place] [address] Assigned Musculoskeletal Provider 03/20/22 08/13/[address] [facility] [address] [place] [address] Assigned MTM Pharmacist 04/07/22 Jelena David OD [address] [facility] [place] [address] Assigned Surgical Provider 05/08/22 10/08/22 Livan Sharif MD [address] [place] [address] Cardiovascular Disease 05/14/22 Livan Sharif MD [address] [place] [address] Assigned Heart and Vascular Provider 06/12/22 07/23/22 Catherine Cm MD [address] [place] [address] Cardiovascular Disease 07/21/22 Valery Veronica, PA-C 909 [place] [address] Physician Client Director Dermatology 07/21/22 Catherine Cm MD [address] [place] [address] Assigned Heart and Vascular Provider 07/24/22 11/05/22 Johnny Murillo MD [address] [facility] [address] [place] [address] Assigned Musculoskeletal Provider 08/14/22 10/08/22 Brea Quinn APRN FILTROSE CRUSHER 500 [place] [address] Nurse Practitioner Dermatology 09/21/22 Brea Quinn APRN FILTROSE CRUSHER 6401 [facility] [place] [address] Assigned Surgical Provider 10/09/22 05/01/24 [place] [address] [place] [facility] [address] [place] [address] Assigned Musculoskeletal Provider 10/09/22 05/01/24 Livan Sharif MD [address] [facility] [address] [place] [address] Assigned Heart and Vascular Provider 11/06/22 11/12/22 Catherine Cm MD [address] [facility] [address] [place] [address] Assigned Heart and Vascular Provider 11/13/22 05/27/23 Sydnie Martinez RN Personal Advocate & Liaison (PAL) Family Medicine 03/28/23 07/31/23 Alfonso Renteria MD 5775 [facility] 200 [place] [address] Assigned Neuroscience Provider 04/02/23 09/29/24 Cheng Todd PA-C [address] [place] [address] Assigned PCP 04/30/23 07/15/23 Radha Lomeli APRN FILTROSE CRUSHER [address] [place], [place] 678945 Assigned Heart and Vascular Provider 05/28/23 Jelena David OD [address] [facility] [place] [address] Ophthalmology 06/15/23 Pao Joseph, VJ Personal Advocate & Liaison (PAL) Nurse 08/01/23 11/07/23 Esha Grimm PA-C [address] [place] [address] Assigned PCP 07/16/23 Valery Veronica PA-C [address] [place] [address] 856905 Physician Client Director Dermatology 09/19/23 Rey Tay MD [address] [place] [address] 569355 Gastroenterology 09/20/23 Rocky Zepeda DO [address] [place] [address] 849415 Physician Gastroenterology 09/20/23 Philip Dumont MD [address] [place] [address] 343145 Physician Ophthalmology 09/22/23 Meredith Carrera PA-C [address] [place] [address] 732015 Assigned Gastroenterology Provider 11/01/23 Neil Kent MD [address] [place] [address] Dermatology 11/02/23 [place] [address] [place] [address] Neurological Surgery 12/26/23 Audrey Waite PA-C 500 [place] [address] Physician Client Director Dermatology 02/28/24 Valery Veronica PA-C 864243 [place], [place] [address] Physician Client Director Dermatology 04/10/24 Herminia Hatch MD [address] [place] [address] Assigned Rheumatology Provider 07/02/24 Jleena David OD [address] [place] [address] [place] [address] Ophthalmology 08/30/24 [place] [address] [place] [address] Assigned Neuroscience Provider 09/30/24 Maru Man PA-C [address] [place] [address] Physician Client Director Dermatology 10/03/24 Maru Man PA-C [address] [place] [address] Physician Client Director Dermatology 10/22/24 Jelena David OD [address] [facility] [place] [address] Assigned Surgical Provider 10/31/24 documented as of this encounter
--- OUTSIDE RECORDS SUMMARY | 2024-11-21 05:16 | XMS_ITS | Encounter Summary ---
Author Organization [facility] Address [address] [place] [address] Care Team Providers Care Quality Assurance Tester Name Role Phone Lita Oseguera Unavailable Unavailable Marija Edgar APRN RESERVES CLERK Primary Care Provider + Marija Edgar APRN RESERVES CLERK Unavailable [phone] Keisha Dotson MD Unavailable Diana Desir [facility] Unavailable Rain Galaviz PA-C Unavailable Tavia Wyatt MD Unavailable Erica Farrell APRN RESERVES CLERK Unavailable Rich Barrett MD Unavailable [phone] Neil Kent MD Unavailable Diana Desir [facility] Unavailable Livan Sharif MD Unavailable Catherine Cm MD Unavailable + Valery Veronica PA-C Unavailable Catherine Cm MD Unavailable + Brea Quinn TABLE INSPECTOR RESERVES CLERK Unavailable Brea Quinn TABLE INSPECTOR RESERVES CLERK Unavailable [phone] Jose Francisco Johnson MD Unavailable Livan Sharif MD Unavailable ChivoraynaCathernie boothe MD Unavailable + Sydnie Martinez RN Unavailable Unavailable Alfonso Renteria MD Unavailable Esha Grimm PA-C Primary Care Provider Cheng Todd PA-C Unavailable [phone] Radha Lomeli TABLE INSPECTOR RESERVES CLERK Unavailable [phone] Jelena David OD Unavailable [phone] Pao Joseph RN Unavailable Unavailable Esha Grimm PA-C Unavailable [phone] Valery Veronica PA-C Unavailable Rey Tay MD Unavailable Rocky Zepeda DO Unavailable Philip Dumont MD Unavailable [phone] Meredith Carrera PA-C Unavailable [phone] Neil Kent MD Unavailable Juan Pablo Emmanuel MD Unavailable Audrey Waite PA-C Unavailable [phone] Valery Veronica PA-C Unavailable Herminia Hatch MD Unavailable Jelena David OD Unavailable [phone] Juan Pablo Emmanuel MD Unavailable Maru Man PA-C Unavailable [phone] Maru Man PA-C Unavailable [phone] Jelena Davide OD Unavailable [phone] Encounter Details Date Type Department Care Team (Late st Contact Info) Description 10/22/2022 MyC Medical Advice [facility] [place] [address] [facility] [address] [place] [address] [place] [address] [facility] 300 [place] [address] Social History Tobacco Use Types Packs/Day Years [...] How often do you attend hindu or jew serv ices? Never 09/22/2021 Do [...] Answer Date Recorded PHQ-2 Score 1 10/11/2022 [facility] [place] of Occupat ional Health - Occupational Stress [...] in a longterm (including now)? No 09/22/2021 [place] Depression Scale Answer Date Recorded [place] Depression Score 5 01/14/2021 Last EPDS Self Harm Result Not on file 01/14 Education Answer Date Recorded What is the highest level of school you have completed or the highest degree you have received? 12th grade 08/07/2020 Comments No Sex and Gender Information Value Date Recorded Sex Assigned at Female 03/02/2021 5:45 PM CDT Legal Sex Female 4:13 AM WATER SYSTEM OPERATOR Gender Identity Female 03/02/2021 5:45 PM [...] Upcoming Encounters Date Type Department Care Team ([facility] st Contact Info) Description 11/21/2024 7:00 AM CDT Office Visit [facility] [address] [phone] Maru Man PA-C [address] [place] [address] 12/20/2024 2:30 PM CDT Office Visit [address] [address] Esha Grimm PA-C [address] [place] [address] 04/16/2025 11:00 AM CDT Virtual Visit [facility] Gastroenterology Clinic [address] 4th [place] [phone] Meredith Carrera PA-C [address] [place] [address] 639975 documented as of this encounter Visit Diagnoses [...] of this encounter Care Teams Quality Assurance Tester Relationship Specialty Start Date End Date Marija Edgar APRN CNP PCP - General Nurse Practitioner 04/30/20 04/14/23 Esha Grimm PA-C [address] [place] [phone] PCP - General Family Medicine 05/04/23 Lita Oseguera Personal Advocate & Liaison (PAL) 02/28/20 03/27/23 Marija Edgar APRN RESERVES CLERK Assigned PCP 06/08/20 04/29/23 Keisha Dotson MD 909 [place], [place] 329175 Assigned Neuroscience Provider 06/04/20 04/01/23 [facility] [address] [place], [place] 2[address]36 Pharmacist Pharmacist 04/17/21 Rain Galaviz PA-C [address] [place] [address] [address] [place] [address] Physician Craft Coordinator Dermatology 04/28/21 Tavia Wyatt MD [address] [place] [address] [address] [place] [facility] [place] [phone] Dermatology 07/14/21 Erica Farrell APRN RESERVES CLERK [address] [place] [address] Nurse Practitioner Cardiovascular Disease 09/09/21 Rich Barrett MD [address] [place] 791365 Physician Ophthalmology 01/21/22 Neil Kent MD 500 [place], [place] 816535 Dermatology 02/24/22 Diana Desir, [facility] 30[address] [place], [place] 344476 Assigned MTM Pharmacist 04/07/22 Livan Sharif MD [address] [place] 381345 Cardiovascular Disease 05/14/22 Catherine Cm MD [address] [place] 086895 Cardiovascular Disease 07/21/22 Valery Veronica, PA-C [address] [place] [address] 228205 Physician Craft Coordinator Dermatology 07/21/22 Catherine Cm MD [address] [facility] [address] [place] 081625 Assigned Heart and Vascular Provider 07/24/22 11/05/22 Brea Quinn APRN RESERVES CLERK [address] [place] [address] 225175 Nurse Practitioner Dermatology 09/21/22 Brea Quinn APRN RESERVES CLERK [address] [place] [address] [facility] 332742 Assigned Surgical Provider 10/09/22 05/01/24 [place] [address] [place] [address] [place] 033097 Assigned Musculoskeletal Provider 10/09/22 05/01/24 Livan Sharif MD [address] [place] 502475 Assigned Heart and Vascular Provider 11/06/22 11/12/22 Catherine Cm MD [address] [place] [address] Assigned Heart and Vascular Provider 11/13/22 05/27/23 Sydnie Martinez, RN Personal Advocate & Liaison (PAL) Family Medicine 03/28/23 07/31/23 Alfonso Renteria MD 5775 [facility] 200 [place] [address] Assigned Neuroscience Provider 04/02/23 09/29/24 Cheng Todd PA-C [address] [place] [address] [id number] Assigned PCP 04/30/23 07/15/23 Radha Lomeli, ARLENE RESERVES CLERK [address] [place] [address] Assigned Heart and Vascular Provider 05/28/23 Jelena David OD [facility] [place] [address] Ophthalmology 06/15/23 Pao Joseph, VJ Personal Advocate & Liaison (PAL) Nurse 08/01/23 11/07/23 Esha Grimm PA-C [address] [place] [phone] Assigned PCP 07/16/23 Valery Veronica PA-C 9 [place], [place] 721815 Physician Craft Coordinator Dermatology 09/19/23 Rey Tay MD [address] [place] [address] 325775 MD Gastroenterology 09/20/23 Rocky Zepeda DO [address] [place] [address] 100285 Physician Gastroenterology 09/20/23 Philip Dumont MD [address] [place] [address] 368365 Physician Ophthalmology 09/22/23 Meredith Carrera PA-C [address] [place] [address] 151085 Assigned Gastroenterology Provider 11/01/23 Neil Kent MD [address] [address] Dermatology 11/02/23 [place] [address] [address] Neurological Surgery 12/26/23 Audrey Waite PA-C [address] [place] [address] Physician Craft Coordinator Dermatology 02/28/24 Valery Veronica PA-C [address] [facility] [place] [address] Physician Craft Coordinator Dermatology 04/10/24 Herminia Hatch MD [facility]5 [place] [address] Assigned Rheumatology Provider 07/02/24 Jelena David OD [address] [place] [address] [place] [address] Ophthalmology 08/30/24 [place] [address] [place] [address] Assigned Neuroscience Provider 09/30/24 Maru Man PA-C [address] [place] [address] Physician Craft Coordinator Dermatology 10/03/24 Maru Man PA-C [address] [place] [address] Physician Craft Coordinator Dermatology 10/22/24 Jelena David OD [address] [place] [address] [place] [address] Assigned Surgical Provider 10/31/24 documented as of this encounter
--- OUTSIDE RECORDS SUMMARY | 2024-11-21 05:16 | XMS_ITS | Encounter Summary ---
Author Organization [facility] Address [address] [place] [address] Care Team Providers Care Freelance Designer Name Role Phone Lita Oseguera Unavailable Unavailable Marija Edgar APRN PLANT TAXONOMIST Primary Care Provider + Marija Edgar APRN PLANT TAXONOMIST Unavailable Keisha Dotson MD Unavailable Diana Desir [facility] Unavailable [phone] Rain Galaviz PA-C Unavailable Tavia Wyatt MD Unavailable Erica Farrell APRN PLANT TAXONOMIST Unavailable Rich Barrett MD Unavailable [phone] Neil Kent MD Unavailable Diana Desir [facility] Unavailable [phone] Livan Sharif MD Unavailable Catherine Cm MD Unavailable + Valery Veronica PA-C Unavailable Catherine Cm MD Unavailable + Brea Quinn INDUSTRIAL ENGINEERING TECHNOLOGIST PLANT TAXONOMIST Unavailable Brea Quinn INDUSTRIAL ENGINEERING TECHNOLOGIST PLANT TAXONOMIST Unavailable [phone] Jose Francisco Johnson MD Unavailable Livan Sharif MD Unavailable Catherine Cm MD Unavailable + Sydnie Martinez RN Unavailable Unavailable Alfonso Renteria MD Unavailable Esha Grimm PA-C Primary Care Provider Cheng Todd PA-C Unavailable [phone] Radha Lomeli INDUSTRIAL ENGINEERING TECHNOLOGIST PLANT TAXONOMIST Unavailable [phone] Jelena David OD Unavailable [phone] Pao Joseph RN Unavailable Unavailable Esha Grimm PA-C Unavailable [phone] Valery Veronica PA-C Unavailable Rey Tay MD Unavailable Rocky Zepeda DO Unavailable Philip Dumont MD Unavailable [phone] Meredith Carrera PA-C Unavailable [phone] Neil Kent MD Unavailable Juan Pablo Emmanuel [...] (Late st Contact Info) Description 10/11/2022 Telephone [facility] [place] [address] [facility] [address] [place] [address] [place] [address] [place] [address] Pt. Information/instructio n; Appointment Social History Tobacco [...] Answer Date Recorded PHQ-2 Score 1 10/24/2024 [facility] - Occupational Stress [...] exercise at this level? 20 min 05/07/2024 Nome Depression Scale Answer Date Recorded Nome [...] PM CDT Legal Sex Female 4:13 AM GROUNDSKEEPER SUPERVISOR Gender Identity Female 03/02/2021 5:45 PM [...] encounter. Please see new request below from [facility] and advise. Mandi Byrd RN * Telephone Encounter - Treasure Lee - 10/15/2022 2:14 PM CDT [facility] Phone Message May a detailed message be left on voicemail: yes Reason for Call: Other: Patient's QRCMeredith is wondering if she can also be conference in on patient's upcoming appointment (10/27). Action Taken: Other: [facility] Sports [facility] Travel Screening: Not Applicable * Telephone Encounter - Mary Easley - 10/12/2022 12:47 PM CDT Called [facility] to discuss what they are needing from 's office. No answer. Left message to call back Kristina Easley ATC * Telephone Encounter - Treasure Lee - 10/11/2022 10:05 AM CDT [facility] Phone Message May a detailed message be left on voicemail: yes Reason for Call: Other: Please contact patient's technical adjusterRosalva so she can authorize patient's MRI. Rosalva's contact info: phone# [phone] fax# [phone] Action Taken: Other: [facility] Sports Medicine Travel Screening: Not Applicable documented in this encounter Plan of Treatment Upcoming Encounters Date Type Department Care Team ([facility] st Contact Info) Description 11/21/2024 7:00 AM CDT Office Visit [address] [phone] Maru Man PA-C [address] [address] 12/20/2024 2:30 PM CDT Office Visit [facility] [address] [place] [phone] Esha Grimm PA-C [address] [place] [address] 04/16/2025 11:00 AM CDT Virtual Visit [facility] [address] [place] [address] Meredith Carrera PA-C [address] [place] [address] documented as of this encounter Visit Diagnoses [...] as of this encounter Care Teams Freelance Designer Relationship Specialty Start Date End Date Marija Edgar APRN PLANT TAXONOMIST PCP - General Nurse Practitioner 04/30/20 04/14/23 Esha Grimm PA-C [address] [place] [phone] PCP - General Family Medicine 05/04/23 Lita Oseguera Personal Advocate & Liaison (PAL) 02/28/20 03/27/23 Marija Edgar APRN PLANT TAXONOMIST Assigned PCP 11/29/20 10/20/23 Keisha Dotson MD [address] [place] [address] Assigned Neuroscience Provider 06/04/20 04/01/23 Diana Desir, [facility] [address] [place] [address] Pharmacist Pharmacist 04/17/21 Rain Galaviz PA-C [address] [place] [address] [address] [place] [address] Physician Radiologic Technologist Mammogram Dermatology 04/28/21 Tavia Wyatt MD [address] [place] [address] DR [address] [facility] [place][note 2] [place] [facility] [place] [address] Dermatology 07/14/21 Erica Farrell APRN PLANT TAXONOMIST [address] [place] [address] Nurse Practitioner Cardiovascular Disease 09/09/21 Rich Barrett MD [address] [place] [address] Physician Ophthalmology 01/21/22 Neil Kent MD 500 [place] [address] Dermatology 02/24/22 Diana Desir, [facility] [address] [place] [address] Assigned MTM Pharmacist 04/07/22 Livan Sharif MD [address] [place] [address] Cardiovascular Disease 05/14/22 Catherine Cm MD [address] [facility] [place] [address] Cardiovascular Disease 07/21/22 Valery Veronica, PA-C [address] [place] [address] 435225 Physician Radiologic Technologist Mammogram Dermatology 07/21/22 Catherine Cm MD [address] [place] 54[address] Assigned Heart and Vascular Provider 07/24/22 11/05/22 Brea Quinn APRN PLANT TAXONOMIST [address] [place] [address] 799135 Nurse Practitioner Dermatology 09/21/22 Brea Quinn APRN PLANT TAXONOMIST [address] [place] [address] [place] 727352 Assigned Surgical Provider 10/09/22 05/01/24 [place] [address] [facility] [place] 823967 Assigned Musculoskeletal Provider 10/09/22 05/01/24 Livan Sharif MD [address] [place] 921835 Assigned Heart and Vascular Provider 11/06/22 11/12/22 Catherine Cm MD [address] [facility] [address] [place] 465405 Assigned Heart and Vascular Provider 11/13/22 05/27/23 Sydnie Martinez RN Personal Advocate & Liaison (PAL) Family Medicine 03/28/23 07/31/23 Alfonso Renteria MD [address] [facility] 200 [place], [place] 809896 Assigned Neuroscience Provider 04/02/23 09/29/24 Cheng Todd PA-C [address] [place] [address] [id number] Assigned PCP 04/30/23 07/15/23 Radha Lomeli APRN PLANT TAXONOMIST [address] [place], [place] 276225 Assigned Heart and Vascular Provider 05/28/23 Jelena David OD [address] [facility] [place] [address] Ophthalmology 06/15/23 Pao Joseph, VJ Personal Advocate & Liaison (PAL) Nurse 08/01/23 11/07/23 Esha Grimm PA-C [address] [place] [phone] Assigned PCP 07/16/23 Valery Veronica PA-C [address] [place] [address] Physician Radiologic Technologist Mammogram Dermatology 09/19/23 Rey Tay MD [address] [place] [address] MD Gastroenterology 09/20/23 Rocky Zepeda DO [address] [place] [address] Physician Gastroenterology 09/20/23 Philip Dumont MD [address] [place] [address] Physician Ophthalmology 09/22/23 Meredith Carrera PA-C [address] [place] [address] Assigned Gastroenterology Provider 11/01/23 Neil Kent MD [address] [place] [address] Dermatology 11/02/23 [place] [address] [facility] [place] [address] Neurological Surgery 12/26/23 Audrey Waite PA-C [address] [place] [address] Physician Radiologic Technologist Mammogram Dermatology 02/28/24 Valery Veronica PA-C 242918 [place] [address] Physician Radiologic Technologist Mammogram Dermatology 04/10/24 Herminia Hatch MD [address] [place], [place] 41264125 Assigned Rheumatology Provider 07/02/24 [place] [address] [facility] [place] [address] Ophthalmology 08/30/24 [place] [address] [place] [address] Assigned Neuroscience Provider 09/30/24 Maru Man PA-C [address] [place] [address] Physician Radiologic Technologist Mammogram Dermatology 10/03/24 Maru Man PA-C [address] [place] [address] Physician Radiologic Technologist Mammogram Dermatology 10/22/24 documented as of this encounter
--- OUTSIDE RECORDS SUMMARY | 2024-11-21 05:16 | XMS_ITS | Encounter Summary ---
Author Organization [facility] Address [address] [place] [address] Care Team Providers Care Associate Automation Engineer Name Role Phone Lita Oseguera Unavailable Unavailable Marija Edgar TREE KILLER DIRECTOR OF ASSISTED LIVING Primary Care Provider + Chanelle Mccann TREE KILLER CNM Unavailab le Marija Edgar APRN DIRECTOR OF ASSISTED LIVING Unavailable [phone] Mynor Broussard MD Unavailable [phone] Keisha Dotson MD Unavailable Galo Burrell MD Unavailable Unavailable Diana Desir [facility] Unavailable Rain Galaviz PA-C Unavailable Summer Lara MD Unavailable [phone] Summer Lara MD Unavailable [phone] Summer Lara MD Unavailable [phone] Tavia Wyatt MD Unavailable Johnny Murillo MD Unavailable Erica Farrell TREE KILLER DIRECTOR OF ASSISTED LIVING Unavailable Teresiat Bean [facility] Unavailable Tavia Wyatt MD Unavailable DesirDiana [facility] Unavailable Rich Barrtet MD Unavailable Neil Kent MD Unavailable Roney StoryM Unavailable [phone] Erica Farrell APRN DIRECTOR OF ASSISTED LIVING Unavailable Diana Desir [facility] Unavailable [phone] Jelena David OD Unavailable Galo Burrell MD Unavailable Unavailable Livan Sharif MD Unavailable Livan Sharif MD Unavailable Catherine Cm MD Unavailable + Valery VeronicaC Unavailable [phone] Catherine Cm MD Unavailable + Johnny Murillo MD Unavailable [phone] Brea Quinn TREE KILLER DIRECTOR OF ASSISTED LIVING Unavailable [phone] Brea Quinn TREE KILLER DIRECTOR OF ASSISTED LIVING Unavailable [phone] Jose Francisco Johnson MD Unavailable Livan Sharif MD Unavailable Catherine Cm MD Unavailable + Sydnie Martinez RN Unavailable Unavailable Alfonso Renteria MD Unavailable Esha GrimmC Primary Care Provider Cheng Todd-C Unavailable [phone] Radha Lomeli APRN DIRECTOR OF ASSISTED LIVING Unavailable [phone] Jelena David OD Unavailable Pao Joseph RN Unavailable Unavailable [place], Esha M PA-C Unavailable [phone] Valery Veronica PA-C Unavailable [phone] Rey Tay MD Unavailable Rocky Zepeda DO [...] Contact Info) Description 04/17/2021 [facility] Medical Advice [address] [address] Marija Edgar APRN DIRECTOR OF ASSISTED LIVING [address] [facility] [place] [address] Social History Tobacco Use [...] in a halfway (including now)? No 08/11/2020 Wanda Depression Scale Answer Date Recorded Wanda Depression Score 5 01/14/2021 Last EPDS Self Harm Result Not on file 01/14 Education Answer Date Recorded What is the highest level of school you have completed or the highest degree you have received? 12th grade 08/07/2020 Comments No Sex and Gender Information Value Date Recorded Sex Assigned at Female 03/02/2021 5:45 PM CDT Legal Sex Female 4:13 AM GAS COLLECTION SYSTEM OPERATOR Gender Identity Female 03/02/2021 5:45 [...] CDT Office Visit [facility] [place] [address] [phone] Maru Man PA-C [address] [address] 12/20/2024 2:30 PM CDT Office Visit [facility] [address] [place] [address] Esha Grimm PA-C [address] [place] [address] 04/16/2025 11:00 AM CDT Virtual Visit [facility] [address] [phone] Meredith Carrera PA-C [address] [place] [address] 377535 documented as of this encounter Visit Diagnoses Not on filedocumented in this encounter Additional Health Concerns Infection Onset Date Last Indicated Resolved Time Rule Out COVID-19 05/11/2021 05/11/2021 05/13/2021 10:18 AM CDT Rule Out COVID-19 07/13/2021 07/13/2021 07/14/2021 3:04 PM GAS COLLECTION SYSTEM OPERATOR Rule Out COVID-19 07/18/2021 07/18/2021 07/20/2021 1:56 PM GAS COLLECTION SYSTEM OPERATOR COVID-19 07/18/2021 07/18/2021 08/08/2021 11:3 9 PM GAS COLLECTION SYSTEM OPERATOR Rule Out COVID-19 12/18/2021 12/18/2021 12/19/2021 11:34 AM CDT Rule Out COVID-19 02/24/2022 02/24/2022 02/25/2022 1:08 PM CDT Rule Out COVID-19 04/26/2022 04/26/2022 04/26/2022 6:47 AM CDT Rule Out COVID-19 05/17/2022 05/17/2022 05/17/2022 10:20 PM GAS COLLECTION SYSTEM OPERATOR Rule Out COVID-19 06/09/2022 06/09/2022 06/09/2022 9:35 AM GAS COLLECTION SYSTEM OPERATOR COVID-19 06/09/2022 06/09/2022 06/30/2022 11:4 1 PM GAS COLLECTION SYSTEM OPERATOR Rule Out COVID-19 11/10/2022 11/10/2022 11/11/2022 [...] as of this encounter Care Teams Associate Automation Engineer Relationship Specialty Start Date End Date Marija Edgar APRN DIRECTOR OF ASSISTED LIVING PCP - General Nurse Practitioner 04/30/20 04/14/23 Esha Grimm PA-C [address] [place] [phone] PCP - General Family Medicine 05/04/23 Lita Oseguera Personal Advocate & Liaison (PAL) 02/28/20 03/27/23 Chanelle Mccann APRN CNM [address] [place], [facility] 200 [place] [address] Assigned OBGYN Provider 05/02/2005/09 Marija Edgar APRN DIRECTOR OF ASSISTED LIVING Assigned PCP 06/08/20 04/29/23 Mynor Broussard MD [address] [facility] 500 [place] [address] Assigned Surgical Provider 06/01/20 11/28/21 Keisha Dotson MD 909 [place] [address] Assigned Neuroscience Provider 06/04/20 04/01/23 Galo Burrell MD Assigned Heart and Vascular Provider 10/05/20 04/02/22 Diana Desir, [facility] [address] [place], [place] 977966 Pharmacist Pharmacist 04/17/21 Rain Galaviz PA-C [address] [place] [address] [facility] 250 [place] [address] Physician Four Horse Hitch Driver Dermatology 04/28/21 Summer Lara MD 606 [facility] [place], [place] 202[address] Assigned OBGYN Provider 05/10/2105/23 Summer Lara MD [address] 24 [place], [place] 717824 Assigned OBGYN Provider 05/31/21 2 Summer Lara MD [address] [place] [address] [place], [place] 716704 Assigned OBGYN Provider 05/24/2105/30 Tavia Wyatt MD [address] [place] [address] 662904 Dermatology 07/14/21 Johnny Murillo MD [address] [facility] [address] [place], [place] 741684 Assigned Musculoskeletal Provider 08/30/21 03/17/22 Erica Farrell APRN DIRECTOR OF ASSISTED LIVING [address] [facility] [address] [place] [address] Nurse Practitioner Cardiovascular Disease 09/09/21 Teresita Bean [facility] [address] [place], [place] [phone] Pharmacist Pharmacist 09/24/21 09/29/21 Tavia Wyatt MD [address] [place], [place] 420290 Assigned Surgical Provider 11/29/21 05/07/22 [facility] [address] [place], [place] 956276 Assigned MTM Pharmacist 01/02/22 Rich Barrett MD [facility]3 [place], [place] 162166 Physician Ophthalmology 01/21/22 Neil Kent MD 500 [place], [place] 136205 Dermatology 02/24/22 Roney Story DPM [address] [facility] [address] [place], [place] 025827 Assigned Musculoskeletal Provider 03/20/22 08/13/22 Erica Farrell APRN DIRECTOR OF ASSISTED LIVING 1700 [place] [address] Assigned Heart and Vascular Provider 04/03/22 04/16/22 Dinaa Desir, [facility] [address] [place] [address] Assigned MTM Pharmacist 04/07/22 Jelena David OD [address] [place] [address] Assigned Surgical Provider 05/08/22 10/08/22 Galo Burrell MD Assigned Heart and Vascular Provider 04/17/22 06/11/22 Livan Sharif MD [address] [place] 440485 Cardiovascular Disease 05/14/22 Livan Sharif MD [address] [place] 363235 Assigned Heart and Vascular Provider 06/12/22 07/23/22 Catherine Cm MD [address] [place] [address] Cardiovascular Disease 07/21/22 Valery Veronica, PAUcheC 909 [place] [address] Physician Four Horse Hitch Driver Dermatology 07/21/22 Catherine Cm MD 6[address] [facility] S [facility] [address] [place] 462565 Assigned Heart and Vascular Provider 07/24/22 11/05/22 Johnny Murillo MD [address] [place] [address] 455194 Assigned Musculoskeletal Provider 08/14/22 10/08/22 Brea Quinn APRN DIRECTOR OF ASSISTED LIVING [address] [place] [address] 071305 Nurse Practitioner Dermatology 09/21/22 Brea Quinn APRN DIRECTOR OF ASSISTED LIVING [address] [place] [address] [place] [address] Assigned Surgical Provider 10/09/22 05/01/24 [place] [address] [place] [address] Assigned Musculoskeletal Provider 10/09/22 05/01/24 Livan Sharif MD [address] [place] 581255 Assigned Heart and Vascular Provider 11/06/22 11/12/22 Catherine Cm MD [address] [place] [address] Assigned Heart and Vascular Provider 11/13/22 05/27/23 Sydnie Martinez RN Personal Advocate & Liaison (PAL) Family Medicine 03/28/23 07/31/23 Alfonso Renteria MD [facility] [facility] 200 [place] [address] Assigned Neuroscience Provider 04/02/23 09/29/24 Cheng Todd PA-C [address] [place] [address] [phone] Assigned PCP 04/30/23 07/15/23 Radha Lomeli APRN DIRECTOR OF ASSISTED LIVING [address] [place] [address] Assigned Heart and Vascular Provider 05/28/23 Jelena David OD [address] [facility] [place] [address] Ophthalmology 06/15/23 Pao Joseph, VJ Personal Advocate & Liaison (PAL) Nurse 08/01/23 11/07/23 Esha Grimm PA-C [address] [place] [phone] Assigned PCP 07/16/23 Valery Veronica PA-C 909 [place], [place] 591335 Physician Four Horse Hitch Driver Dermatology 09/19/23 Rey Tay MD [address] [place] [address] 250955 MD Gastroenterology 09/20/23 Rocky Zepeda DO [address] [place] [address] Physician Gastroenterology 09/20/23 Philip Dumont MD [address] [place] [address] 757105 Physician Ophthalmology 09/22/23 Meredith Carrera PA-C [address] [place] [address] 835905 Assigned Gastroenterology Provider 11/01/23 Neil Kent MD [address] [place] [address] 304200 Dermatology 11/02/23 [place] [address] [address] [address] Neurological Surgery 12/26/23 Audrey Waite PA-C [address] [place] [address] Physician Four Horse Hitch Driver Dermatology 02/28/24 Valery Veronica PA-C 249673 [address], [place] [address] Physician Four Horse Hitch Driver Dermatology 04/10/24 Herminia Hatch MD [address] [place] [address] Assigned Rheumatology Provider 07/02/24 Jelena David OD [address] [place] [address] [place] [address] Ophthalmology 08/30/24 [place] [address] [place] [address] Assigned Neuroscience Provider 09/30/24 Maru Man PA-C [address] [place] [address] Physician Four Horse Hitch Driver Dermatology 10/03/24 Maru Man PA-C [address] [place] [address] Physician Four Horse Hitch Driver Dermatology 10/22/24 Jelena David OD [address] [place] [address] [place] [address] Assigned Surgical Provider 10/31/24 documented as of this encounter
--- OUTSIDE RECORDS SUMMARY | 2024-11-21 05:17 | XMS_ITS | Encounter Summary ---
Author Organization [place] Address [address] [place] [address] Care Team Providers Care Fitness Leader Name Role Phone Diana Desir [facility] Unavailable Rain Galaviz PA-C Unavailable [phone] Tavia Wyatt MD Unavailable Erica Farrell APRN PEOPLESOFT FSCM DEVELOPER Unavailable Rich Barrett MD Unavailable [phone] Neil Kent MD Unavailable Diana Desir [facility] Unavailable Livan Sharif MD Unavailable Catherine Cm MD Unavailable + Valery Veronica PA-C Unavailable [phone] Brea Quinn ENTERPRISE RESOURCE PLANNER PEOPLESOFT FSCM DEVELOPER Unavailable Brea Quinn ENTERPRISE RESOURCE PLANNER PEOPLESOFT FSCM DEVELOPER Unavailable Jose Francisco Johnson MD Unavailable Alfonso Renteria MD Unavailable [phone] Esha Grimm PA-C Primary Care Provider Radha Lomeli APRN PEOPLESOFT FSCM DEVELOPER Unavailable Jelena David OD Unavailable Pao Joseph RN Unavailable Unavailable Esha Grimm Adam PA-C Unavailable [phone] Valery Veronica PA-C Unavailable [phone] Rey Tay MD Unavailable Rocky Zepeda DO Unavailable Philip Dumont MD Unavailable [phone] Meredith Carrera PA-C Unavailable [phone] Neil Kent MD Unavailable Juan Pablo Emmanuel MD Unavailable [phone] Audrey Waite PA-C Unavailable [phone] JeremíasValery admon PA-C Unavailable Herminia Hatch MD Unavailable Jelena David OD Unavailable Juan Pablo Emmanuel MD Unavailable [phone] Maru Man PA-C Unavailable Maru Man PA-C Unavailable [phone] Jelena David OD Unavailable Encounter Details Date Type Department Care Team (Late st Contact Info) Description 08/25/[address] [facility] [address] [place] [address] Marija Polanco, VJ Social History [...] exercise at this level? 30 min 03/10/2023 [place] Depression Scale Answer Date Recorded [place] Depression Score 5 01/14/2021 Last EPDS Self [...] PM CDT Legal Sex Female 4:13 AM CHEF MANAGER Gender Identity Female 03/02/2021 5:45 PM CDT Sexual Orientation Straight 02/28/2020 12 :51 AM CDT documented as of this encounter Plan of Treatment Upcoming Encounters Date Type Department Care Team (Late st Contact Info) Description 11/21/2024 7:00 AM CDT Office Visit [facility] [address] [address] Maru Man PA-C [address] [address] 12/20/2024 2:30 PM CDT Office Visit [facility] [address] [place] [phone] Esha Grimm PA-C [address] [place] [phone] 04/16/2025 11:00 AM CDT Virtual Visit [facility] [address] [place] [phone] Meredith Carrera PA-C [address] [place] [address] 996815 documented as of this encounter Visit Diagnoses [...] Total Score: 4 06/20/20 23 8:40 AM CHEF MANAGER documented as of this encounter Care Teams Fitness Leader Relationship Specialty Start Date End Date Esha Grimm PA-C [address] [place] [phone] PCP - General Family Medicine 05/04/23 Diana Desir, [facility] [address] [facility] [place] [address] Pharmacist Pharmacist 04/17/21 Rain Galaviz PA-C [address] [place] [address] [place] [address] Physician Manager Financial Services Dermatology 04/28/21 Tavia Wyatt MD [address] [place] [address] [address] [place] [address] Dermatology 07/14/21 Erica Farrell APRN PEOPLESOFT FSCM DEVELOPER [address] [place] [address] Nurse Practitioner Cardiovascular Disease 09/09/21 Rich Barrett MD [address] [place] 940165 Physician Ophthalmology 01/21/22 Neil Kent MD [address] [place] [address] 044445 Dermatology 02/24/22 [facility] [address] [place] [address] 147046 Assigned [facility] Pharmacist 04/07/22 Livan Sharif MD [address] [place] [address] Cardiovascular Disease 05/14/22 Catherine Cm MD [address] [place] [address] Cardiovascular Disease 07/21/22 Valery Veronica, PA-C [address] [place] [address] 977955 Physician Manager Financial Services Dermatology 07/21/22 Brea Quinn APRN PEOPLESOFT FSCM DEVELOPER 500 [place], [place] 739785 Nurse Practitioner Dermatology 09/21/22 Brea Quinn APRN PEOPLESOFT FSCM DEVELOPER 6401 [place] [address] Assigned Surgical Provider 10/09/22 05/01/24 [place] [address] [address] Assigned Musculoskeletal Provider 10/09/22 05/01/24 Alfonso Renteria MD 5775 [facility] 200 [place], [place] 890946 Assigned Neuroscience Provider 04/02/23 09/29/24 Radha Lomeli APRN PEOPLESOFT FSCM DEVELOPER [address] 4701600 [place] [address] Assigned Heart and Vascular Provider 05/28/23 Jelena David OD [address] [facility] [place] [address] Ophthalmology 06/15/23 Pao Joseph, RN Personal Advocate & Liaison (PAL) Nurse 08/01/23 11/07/23 Esha Grimm PA-C [address] [place] [address] Assigned PCP 07/16/23 Valery Veronica PA-C [address] [place] [address] Physician Manager Financial Services Dermatology 09/19/23 Rey Tay MD [address] [place] [address] MD Gastroenterology 09/20/23 Rocky Zepeda DO [address] [place] [address] Physician Gastroenterology 09/20/23 Philip Dumont MD [address] [place] [address] Physician Ophthalmology 09/22/23 Meredith Carrera PA-C [address] [place] [address] Assigned Gastroenterology Provider 11/01/23 Neil Kent MD [address] [address] Dermatology 11/02/23 [place] [address] [place] [address] Neurological Surgery 12/26/23 Audrey Waite PA-C [address] [place] [address] 048995 Physician Manager Financial Services Dermatology 02/28/24 Valery Veronica PA-C [id number] [place] [address] Physician Manager Financial Services Dermatology 04/10/24 Herminia Hatch MD [facility]5 [place], [place] 39595125 Assigned Rheumatology Provider 07/02/24 Jelena David OD [address] [facility] [place] [address] Ophthalmology 08/30/24 [place] [address] [place] [address] Assigned Neuroscience Provider 09/30/24 Maru Man PA-C [address] [place] [address] Physician Manager Financial Services Dermatology 10/03/24 Maru Man PA-C [address] [place] [address] Physician Manager Financial Services Dermatology 10/22/24 Jelena David OD [address] [facility] [place] [address] Assigned Surgical Provider 10/31/24 documented as of this encounter
--- OUTSIDE RECORDS SUMMARY | 2024-11-21 05:17 | XMS_ITS | Encounter Summary ---
Author Organization [place] Address [address] [place] [address] Care Team Providers Care Tenter Name Role Phone Diana Desir [facility] Unavailable Rain Galaviz PA-C Unavailable Tavia Wyatt MD Unavailable Erica Farrell APRN OIL AND GAS EXPLORATION TECHNICIAN Unavailable Rich Barrett MD Unavailable [phone] Neil Kent MD Unavailable Diana Desir [facility] Unavailable Livan Sharif MD Unavailable Catherine Cm MD Unavailable + Valery Veronica PA-C Unavailable Brea Quinn LIQUID CENTER ASSEMBLER OIL AND GAS EXPLORATION TECHNICIAN Unavailable [phone] Brea Quinn LIQUID CENTER ASSEMBLER OIL AND GAS EXPLORATION TECHNICIAN Unavailable Jose Francisco Johnson MD Unavailable Alfonso Renteria MD Unavailable [phone] Esha Grimm PA-C Primary Care Provider Radha Lomeli APRN OIL AND GAS EXPLORATION TECHNICIAN Unavailable Jelena David OD Unavailable Pao Joseph RN Unavailable Unavailable AlfaJesusEsha M PA-C Unavailable [phone] Valery Veronica PA-C Unavailable Rey Tay MD Unavailable Rocky Zepeda DO Unavailable Philip Dumont MD Unavailable Meredith Carrera PA-C Unavailable [phone] Neil Kent MD Unavailable Juan Pablo Emmanuel MD Unavailable Audrey Waite PA-C Unavailable JeremíasValery damon PA-C Unavailable Herminia Hatch MD Unavailable Jelena David OD Unavailable Juan Pablo Emmanuel MD Unavailable Maru Man PA-C Unavailable Maru Man PA-C Unavailable Jelena David OD Unavailable Encounter Details Date Type Department Care Team (Late st Contact Info) Description 09/01/2023 MyC Medical Advice [address] [address] Diana Desir, [facility] 6479 [place] [address] Social History Tobacco Use Types [...] Score 0 06/20/2023 [facility] - Occupational Stress Questionnaire Answer [...] exercise at this level? 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 [address] [place] [address] Esha Grimm PA-C [address] [place] [address] 04/16/2025 11:00 AM CDT Virtual Visit [facility] [address] 4th [place] [phone] Meredith Carrera PA-C [address] [place] [address] 161385 documented as of this encounter Visit Diagnoses [...] Score: 4 06/20/20 23 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 MECHANICAL PROJECT ENGINEER documented as of this encounter Care Teams Tenter Relationship Specialty Start Date End Date Esha Grimm PA-C [address] [place] [address] PCP - General Family Medicine 05/04/23 Diana Desir, [facility] [address] [place] [address] Pharmacist Pharmacist 04/17/21 Rain Galaviz PA-C [address] [place] [address] [address] [place] [address] Physician Auctioneer Art Dermatology 04/28/21 Tavia Wyatt MD [address] [place] [address] [address] [place] [address] Dermatology 07/14/21 Erica Farrell APRN OIL AND GAS EXPLORATION TECHNICIAN [address] [place] 7[address]65 Nurse Practitioner Cardiovascular Disease 09/09/21 Rich Barrett MD [address] [place] [address]125 Physician Ophthalmology 01/21/22 Neil Kent MD 500 [place], [place] 558725 Dermatology 02/24/22 Diana Desir, [facility] 3033 [place], [place] 539576 Assigned MTM Pharmacist 04/07/22 Livan Sharif MD [address] [place] [address] Cardiovascular Disease 05/14/22 Catherine Cm MD [address] [place] [address] Cardiovascular Disease 07/21/22 Valery Veronica PA-C 909 [place] [address] Physician Auctioneer Art Dermatology 07/21/22 Brea Quinn APRN OIL AND GAS EXPLORATION TECHNICIAN 500 [place] [address] Nurse Practitioner Dermatology 09/21/22 Brea Quinn APRN OIL AND GAS EXPLORATION TECHNICIAN 6401 [place] [address] Assigned Surgical Provider 10/09/22 05/01/24 [place] [address] [place] [address] Assigned Musculoskeletal Provider 10/09/22 05/01/24 Alfonso Renteria MD 5775 [facility] 200 [place], [place] 2868[address] Assigned Neuroscience Provider 04/02/23 09/29/24 Radha Lomeli APRN OIL AND GAS EXPLORATION TECHNICIAN 6[address] [facility] [address] [place] [address] Assigned Heart and Vascular Provider 05/28/23 Jelena David OD [address] [facility] [place] [address] Ophthalmology 06/15/23 Pao Joseph, VJ Personal Advocate & Liaison (PAL) Nurse 08/01/23 11/07/23 Esha Grimm PA-C [address] [place] [phone] Assigned PCP 07/16/23 Valery Veronica PA-C 9 [place] [address] Physician Auctioneer Art Dermatology 09/19/23 Rey Tay MD [address] [place] [address] 704905 MD Gastroenterology 09/20/23 Rocky Zepeda DO [address] [place] [address] 605855 Physician Gastroenterology 09/20/23 Philip Dumont MD [address] [place] [address] 596025 Physician Ophthalmology 09/22/23 Meredith Carrera PA-C [address] [place] [address] 390255 Assigned Gastroenterology Provider 11/01/23 Neil Kent MD [address] 326150 Dermatology 11/02/23 [place] [address] [address] [facility] [address] Neurological Surgery 12/26/23 Audrey Waite PA-C [address] [place] [address] Physician Auctioneer Art Dermatology 02/28/24 Valery Veronica PA-C [address] [facility] [place] [address] Physician Auctioneer Art Dermatology 04/10/24 Herminia Hatch MD [facility]5 [place] [address] Assigned Rheumatology Provider 07/02/24 Jelena David OD [address] [place] [address] [place] [address] Ophthalmology 08/30/24 [place] [address] [place] [address] Assigned Neuroscience Provider 09/30/24 Maru Man PA-C [address] [place] [address] Physician Auctioneer Art Dermatology 10/03/24 Maru Man PA-C [address] [place] [address] Physician Auctioneer Art Dermatology 10/22/24 Jelena David OD [address] [place] [address] [place] [address] Assigned Surgical Provider 10/31/24 documented as of this encounter
--- OUTSIDE RECORDS SUMMARY | 2024-11-21 05:17 | XMS_ITS | Encounter Summary ---
Author Organization [place] Address [address] [place] [address] Care Team Providers Care Manager Android Name Role Phone Diana Desir Stanislav [facility] Unavailable Rain Galaviz PA-C Unavailable [phone] Tavia Wyatt MD Unavailable Erica Farrell APRN DYNAMICIST Unavailable Rich Barrett MD Unavailable [phone] Neil Kent MD Unavailable ThangKendrickDiana Stanislav [facility] Unavailable [phone] Livan Sharif MD Unavailable Catherine Cm MD Unavailable + Valery Veronica-C Unavailable Brea Quinn [employer] TACKER DYNAMICIST Unavailable Esha Grimm PA-C Primary Care Provider Radha Lomeli APRN DYNAMICIST Unavailable Jelena David OD Unavailable [phone] Esha Grimm PA-C Unavailable [phone] Valery Veronica PA-C Unavailable [phone] Rey Tay MD Unavailable ZepedaRocky Unavailable Philip Dumont MD Unavailable DebiMeredith PA-C Unavailable Neil Kent MD Unavailable Juan Pablo Emmanuel MD Unavailable Audrey Waite PA-C Unavailable Valery Veronica PA-C Unavailable [phone] Herminia Hatch MD Unavailable Jelena David OD Unavailable Juan Pablo Emmanuel MD Unavailable Maru Man PA-C Unavailable [phone] Maru Man PA-C Unavailable Jelena David OD Unavailable Reason for Visit * Reason Onset Date Comments Call Back 10/09/2024 Heart Monitor Encounter Details Date Type Department Care Team (Late st Contact Info) Description 10/09/2024 Telephone [facility] [address] [facility] [address] [place] [address] Livan Sharif MD [address] [facility] [address] [place] [address] Call Back (Heart Monitor) Social [...] PHQ-2 Score 1 02/07/2024 [facility] - Occupational Stress Questionnaire Answer [...] exercise at this level? 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 Carley Medina [facility] * Telephone Encounter - [...] can certainly offer. Thanks! Rodrigo Correa APRN, DYNAMICIST * Telephone Encounter - Mary Stapleton - 10/09/2024 1:57 PM CDT [facility] Call Center Phone Message May a [...] 7:00 AM CDT Office Visit [facility] [address] [phone] Maru Man PA-C [address] 782390 12/20/2024 2:30 PM CDT Office Visit [address] [address] Esha Grimm PA-C [address] [place] [phone] 04/16/2025 11:00 AM CDT Virtual Visit [facility] [address] 4th [place] [phone] Meredith Carrera PA-C [address] [place] [address] 271085 documented as of this encounter Visit Diagnoses Not on filedocumented in this encounter Additional Health Concerns Infection Onset Date Last Indicated Resolved Time Rule Out COVID-19 11/20/2024 11/20/2024 Assessment Noted Time PHQ-9 Depression Total Score: 3 02/07/20 24 9:33 AM CDT documented as of this encounter Care Teams Manager Android Relationship Specialty Start Date End Date Esha Grimm PA-C [address] [place] [phone] PCP - General Family Medicine 05/04/23 Diana Desir, [facility] 3033 [place], [place] 007876 Pharmacist Pharmacist 04/17/21 Rain Galaviz PA-C [address] [place] [address] [place] [address] Physician News Camera Operator Dermatology 04/28/21 Tavia Wyatt MD [address] [place] [address] [place] [address] Dermatology 07/14/21 Erica Farrell APRN DYNAMICIST [address] [place] [address] Nurse Practitioner Cardiovascular Disease 09/09/21 Rich Barrett MD [address] [place] 591285 Physician Ophthalmology 01/21/22 Neil Kent MD 500 [place], [place] 678645 Dermatology 02/24/22 Diana Desir, [facility] 3033 [place], [place] 267426 Assigned [facility] Pharmacist 04/07/22 Livan Sharif MD [address] [address] Cardiovascular Disease 05/14/22 Catherine Cm MD [address] [place] [address] Cardiovascular Disease 07/21/22 Valery Veronica, PA-C [address] [place] [address] 386925 Physician News Camera Operator Dermatology 07/21/22 Brea Quinn APRN DYNAMICIST 500 [place], [place] 221655 Nurse Practitioner Dermatology 09/21/22 Radha Lomeli APRN DYNAMICIST [address] [place], [place] 455055 Assigned Heart and Vascular Provider 05/28/23 Frankie Jelena Garcia, SONJA [address] [place] [place] [address] MD Ophthalmology 06/15/23 Esha Grimm PA-C [address] [place] [phone] Assigned PCP 07/16/23 Valery Veronica PA-C [address] [place] [address] 056525 Physician News Camera Operator Dermatology 09/19/23 Rey Tay MD [address] [place] [address] 231575 MD Gastroenterology 09/20/23 Rocky Zepeda DO [address] [place] [address] 788865 Physician Gastroenterology 09/20/23 Philip Dumont MD [address] [place] [address] 281045 Physician Ophthalmology 09/22/23 Meredith Carrera PA-C [address] [place] [address] Assigned Gastroenterology Provider 11/01/23 Neil Kent MD [address] [address] Dermatology 11/02/23 [place] [address] [place] [address] Neurological Surgery 12/26/23 Audrey Waite PA-C 500 [place] [address] Physician News Camera Operator Dermatology 02/28/24 Valery Veronica PA-C [address]60 [address] [place] [address] Physician News Camera Operator Dermatology 04/10/24 Herminia Hatch MD [address] [place] [address] Assigned Rheumatology Provider 07/02/24 Jelena David OD [address] [place] [address] [place] [address] Ophthalmology 08/30/24 [place] [address] [place] [address] Assigned Neuroscience Provider 09/30/24 Maru Man PA-C [address] [place] [address] Physician News Camera Operator Dermatology 10/03/24 Maru Man PA-C [address] [place] [address] Physician News Camera Operator Dermatology 10/22/24 Jelena David OD [address] [place] [address] [place] [address] (work) Assigned Surgical Provider 10/31/24 documented as of this encounter
--- OUTSIDE RECORDS SUMMARY | 2024-11-21 05:17 | XMS_ITS | Encounter Summary ---
Author Organization [facility] Address [address] [place] [address] Care Team Providers Care Truck Bracer Name Role Phone Diana Desir [facility] Unavailable Rain GalavizC Unavailable Tavia Wyatt MD Unavailable Erica Farrell APRN KIER BOILER Unavailable Rcih Barrett MD Unavailable [phone] Neil Kent MD Unavailable DesirKendrickDiana Stanislav [facility] Unavailable [phone] Livan Sharif MD Unavailable Catherine Cm MD Unavailable + Valery Veronica-C Unavailable [phone] Brea Quinn UTILIZATION ENGINEER KIER BOILER Unavailable [phone] Alfonso Renteria MD Unavailable [phone] Esha GrimmC Primary Care Provider Radha Lomeli UTILIZATION ENGINEER KIER BOILER Unavailable Jelena David OD Unavailable Alfa, Esha M PA-C Unavailable [phone] Valery Veronica PA-C Unavailable [phone] Rey Tay MD Unavailable Rocky Zepeda DO Unavailable Philip Dumont MD Unavailable [phone] Meredith aCrrera PA-C Unavailable Neil Kent MD Unavailable Juan Pablo Emmanuel MD Unavailable Audrey Waite PA-C Unavailable Valery Veronica PA-C Unavailable [phone] Herminia Hatch MD Unavailable Jelena David OD Unavailable Juan Pablo Emmanuel MD Unavailable Maru Man PA-C Unavailable Maru Man-C Unavailable Jelena David OD Unavailable Encounter Details Date Type Department Care Team (Late st Contact Info) Description 09/07/2024 MyC Medical Advice [facility] [address] [address] Meredith Carrera PA-C [address] [place] [address] Social History Tobacco Use Types Packs/Day [...] Score 1 02/07/2024 [facility] - Occupational Stress Questionnaire [...] exercise at this level? 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 Gender Identity Female 03/02/2021 5:45 PM CDT Sexual Orientation Straight 02/28/2020 12 :51 AM CDT documented as of this encounter Plan of Treatment Upcoming Encounters Date Type Department Care Team (Late st Contact Info) Description 11/21/2024 7:00 AM CDT Office Visit [facility] [address] [address] Maru Man PA-C [address] [place] [address] [phone] 12/20/2024 2:30 PM CDT Office Visit [facility] [address] [place] [address] Esha Grimm PA-C [address] [place] [address] 04/16/2025 11:00 AM CDT Virtual Visit [facility] [address] 4th [place] [phone] Meredith Carrera PA-C [address] [place] [address] 869045 documented as of this encounter Visit Diagnoses Not on filedocumented in this encounter Additional Health Concerns Infection Onset Date Last Indicated Resolved Time Rule Out COVID-19 10/04/2024 10/04/2024 10/05/2024 9:42 AM CDT Rule Out COVID-19 11/20/2024 11/20/2024 Assessment Noted Time PHQ-9 Depression Total Score: 3 02/07/20 24 9:33 AM CDT documented as of this encounter Care Teams Truck Bracer Relationship Specialty Start Date End Date Esha Grimm PA-C [address] [place] [address] PCP - General Family Medicine 05/04/23 Diana Desir, [facility] [address] [place] [address] Pharmacist Pharmacist 04/17/21 Rain Galaviz PA-C [address] [place] [address] [place] [address] Physician Computer Systems Security Administrator Dermatology 04/28/21 Tavia Wyatt MD [address] [place] [address] [address] [facility] [place] [address] Dermatology 07/14/21 Erica Farrell APRN KIER BOILER [address] [place] 463095 Nurse Practitioner Cardiovascular Disease 09/09/21 Rich Barrett MD [address] [place] 724705 Physician Ophthalmology 01/21/22 Neil Kent MD 500 [place], [place] 582875 Dermatology 02/24/22 [facility] [address] [place] [address] 660966 Assigned [place] Pharmacist 04/07/22 Livan Sharif MD [address] [place] 413065 Cardiovascular Disease 05/14/22 Catherine Cm MD [address] [place] [address] Cardiovascular Disease 07/21/22 Valery Veronica, PA-C [address] [place] [address] 236625 Physician Computer Systems Security Administrator Dermatology 07/21/22 Brea Quinn APRN KIER BOILER [address] [place] [address] Nurse Practitioner Dermatology 09/21/22 Alfonso Renteria MD [address] [facility] [address] 200 [place] [address] Assigned Neuroscience Provider 04/02/23 09/29/24 Radha Lomeli, ARLENE KIER BOILER [address] [facility] [address] [place], [place] 914395 Assigned Heart and Vascular Provider 05/28/23 Jelena David OD [address] [facility] [place] [address] Ophthalmology 06/15/23 Esha Grimm PA-C [address] [place] [address] Assigned PCP 07/16/23 Valery Veronica PA-C [address] [place] [address] Physician Computer Systems Security Administrator Dermatology 09/19/23 Rey Tay MD [address] [place] [address] Gastroenterology 09/20/23 Rocky Zepeda DO [address] [place] [address] 962105 Physician Gastroenterology 09/20/23 Philip Dumont MD 6 [place], [place] 183955 Physician Ophthalmology 09/22/23 Meredith Carrera PA-C 909 [place] [address] Assigned Gastroenterology Provider 11/01/23 Neil Kent MD [address] [address] MD Dermatology 11/02/23 [place] [address] [place] 560977 Neurological Surgery 12/26/23 Audrey Waite PA-C 500 [place] [address] Physician Computer Systems Security Administrator Dermatology 02/28/24 Valery Veronica PA-C 523703 [place] [address] Physician Computer Systems Security Administrator Dermatology 04/10/24 Herminia Hatch MD [facility]5 [place], [place] 82998125 Assigned Rheumatology Provider 07/02/24 Jelena David OD [address] [facility] [place] [address] Ophthalmology 08/30/24 [place] [address] [address] [place] [address] Assigned Neuroscience Provider 09/30/24 Maru Man PA-C [address] [place] [address] Physician Computer Systems Security Administrator Dermatology 10/03/24 Maru Man PA-C [address] [place] [address] Physician Computer Systems Security Administrator Dermatology 10/22/24 Jelena David OD [address] [place] [address] [address] [place], [place] [address] Assigned Surgical Provider 10/31/24 documented as of this encounter
--- OUTSIDE RECORDS SUMMARY | 2024-11-21 05:17 | XMS_ITS | Encounter Summary ---
Author Organization [facility] Address [address] [place] [address] Care Team Providers Care Composing Room Supervisor Name Role Phone Diana Desir [facility] Unavailable Rain Galaviz PA-C Unavailable Tavia Wyatt MD Unavailable Erica Farrell APRN APPLICATION MANAGER Unavailable Rich Barrett MD Unavailable [phone] Neil Kent MD Unavailable Diana Desir [facility] Unavailable Livan Sharif MD Unavailable Catherine Cm MD Unavailable + Valery Veronica PA-C Unavailable Brea Quinn ECONOMETRICS PROFESSOR APPLICATION MANAGER Unavailable Brea Quinn ECONOMETRICS PROFESSOR APPLICATION MANAGER Unavailable Jose Francisco Johnson MD Unavailable Alfonso Renteria MD Unavailable [phone] Esha Grimm PA-C Primary Care Provider Radha Lomeli APRN APPLICATION MANAGER Unavailable Jelena David OD Unavailable [phone] Pao Joseph RN Unavailable Unavailable Esha Grimm Adam PA-C Unavailable [phone] Valery Veronica PA-C Unavailable [phone] Rey Tay MD Unavailable Rocky Zepeda DO Unavailable Philip Dumont MD Unavailable [phone] Meredith Carrera PA-C Unavailable [phone] Neil Kent MD Unavailable Juan Pablo Emmanuel MD Unavailable [phone] Audrey Waite PA-C Unavailable [phone] JeremíasValery damon PA-C Unavailable Herminia Hatch MD Unavailable Jelena David OD Unavailable [phone] Juan Pablo Emmanuel MD Unavailable [phone] Maru Man PA-C Unavailable Maru Man PA-C Unavailable [phone] Jelena David OD Unavailable Encounter Details Date Type Department Care Team (Late st Contact Info) Description 08/25/2023 MyC Medical Advice [facility] [address] [place] [address] Marija Polanco, VJ Social History [...] exercise at this level? 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 Gender Identity Female 03/02/2021 5:45 PM CDT Sexual Orientation Straight 02/28/2020 12 :51 AM CDT documented as of this encounter Plan of Treatment Upcoming Encounters Date Type Department Care Team (Late st Contact Info) Description 11/21/2024 7:00 AM CDT Office Visit [facility] [address] [address] Maru Man PA-C [address] [address] 12/20/2024 2:30 PM CDT Office Visit [facility] [address] [place] [phone] Esha Grimm PA-C [address] [place] [phone] 04/16/2025 11:00 AM CDT Virtual Visit [facility] [address] [place] [phone] Meredith Carrera PA-C [address] [place] [address] 648735 documented as of this encounter Visit Diagnoses [...] Total Score: 4 06/20/20 23 8:40 AM COMPLAINT INVESTIGATOR documented as of this encounter Care Teams Composing Room Supervisor Relationship Specialty Start Date End Date Esha Grimm PA-C [address] [place] [phone] PCP - General Family Medicine 05/04/23 Diana Desir, [facility] [address] [place] [address] Pharmacist Pharmacist 04/17/21 Rain Galaviz PA-C [address] [place] [address] [place] [address] Physician Bilingual Speech Therapist Dermatology 04/28/21 Tvaia Wyatt MD [address] [place] [address] [address] [place] [address] Dermatology 07/14/21 Erica Farrell APRN APPLICATION MANAGER [address] [place] [address] Nurse Practitioner Cardiovascular Disease 09/09/21 Rich Barrett MD [address] [place] 092485 Physician Ophthalmology 01/21/22 Neil Kent MD [address] [place] [address] 603135 Dermatology 02/24/22 Diana DesirCOX BRANSON [address] [place] [address] 078036 Assigned [facility] Pharmacist 04/07/22 Livan Sharif MD [address] [place] [address] Cardiovascular Disease 05/14/22 Catherine Cm MD [address] [place] 811595 Cardiovascular Disease 07/21/22 Valery Veronica, PA-C [address] [place] [address] 231965 Physician Bilingual Speech Therapist Dermatology 07/21/22 Brea Quinn APRN APPLICATION MANAGER 500 [place], [place] 250345 Nurse Practitioner Dermatology 09/21/22 Brea Quinn APRN APPLICATION MANAGER 6401 [place] [address] Assigned Surgical Provider 10/09/22 05/01/24 [place] [address] [address] Assigned Musculoskeletal Provider 10/09/22 05/01/24 Alfonso Renteria MD 5775 [facility] 200 [place], [place] 317286 Assigned Neuroscience Provider 04/02/23 09/29/24 Radha Lomeli APRN APPLICATION MANAGER [address] [place] 6400900 [place] [address] Assigned Heart and Vascular Provider 05/28/23 Jelena David OD [address] [facility] [place] [address] Ophthalmology 06/15/23 Pao Joseph, RN Personal Advocate & Liaison (PAL) Nurse 08/01/23 11/07/23 Esha Grimm PA-C [address] [place] [address]83 Assigned PCP 07/16/23 Valery Veronica PA-C [address] [place] [address] Physician Bilingual Speech Therapist Dermatology 09/19/23 Rey Tay MD [address] [place] [address] MD Gastroenterology 09/20/23 Rocky Zepeda DO [address] [place] [address] Physician Gastroenterology 09/20/23 Philip Dumont MD [address] [place] [address] Physician Ophthalmology 09/22/23 Meredith Carrera PA-C [address] [place] [address] Assigned Gastroenterology Provider 11/01/23 Neil Kent MD [address] [address] Dermatology 11/02/23 [place] [address] [place] [address] Neurological Surgery 12/26/23 Audrey Waite PA-C [address] [place] [address] 297875 Physician Bilingual Speech Therapist Dermatology 02/28/24 Valery Veronica PA-C [address]113 [address] [place] [address] Physician Bilingual Speech Therapist Dermatology 04/10/24 Herminia Hatch MD [facility]5 [place], [place] 19327125 Assigned Rheumatology Provider 07/02/24 Jelena David OD [address] [facility] [place] [address] Ophthalmology 08/30/24 [place] [address] [place] [address] Assigned Neuroscience Provider 09/30/24 Maru Man PA-C [address] [place] [address] Physician Bilingual Speech Therapist Dermatology 10/03/24 Maru Man PA-C [address] [place] [address] Physician Bilingual Speech Therapist Dermatology 10/22/24 Jelena David OD [address]305 [facility] [place] [address] Assigned Surgical Provider 10/31/24 documented as of this encounter
--- OUTSIDE RECORDS SUMMARY | 2024-11-21 05:17 | XMS_ITS | Encounter Summary ---
Author Organization [facility] Address [address] [place] [address] Care Team Providers Care Enterprise Resource Planner Name Role Phone Lita Oseguera Unavailable Unavailable Marija Edgar APRN TURBINE BLADE ASSEMBLER Primary Care Provider + Marija Edgar APRN TURBINE BLADE ASSEMBLER Unavailable [phone] Keisha Dotson MD Unavailable Diana Desir [facility] Unavailable Rain Galaviz PA-C Unavailable Tavia Wyatt MD Unavailable Erica Farrell APRN TURBINE BLADE ASSEMBLER Unavailable Rich Barrett MD Unavailable [phone] Neil Kent MD Unavailable Roney Story DPM Unavailable Diana Desir [facility] Unavailable [phone] Jelena David OD Unavailable Livan Sharif MD Unavailable Livan Sharif MD Unavailable Catherine Cm MD Unavailable + Valery Veronica PA-C Unavailable Catherine Cm MD Unavailable + Johnny Murillo MD Unavailable [phone] Brea Quinn SOIL CONSERVATION TECHNICIAN TURBINE BLADE ASSEMBLER Unavailable [phone] Brea Quinn SOIL CONSERVATION TECHNICIAN TURBINE BLADE ASSEMBLER Unavailable [phone] Jose Francisco Johnson MD Unavailable Livan Sharif MD Unavailable Catherine Cm MD Unavailable + Sydnie Martinez RN Unavailable Unavailable Alfonso Renteria MD Unavailable [phone] Esha Grimm PA-C Primary Care Provider Cheng Todd PA-C Unavailable [phone] Radha Lomeli SOIL CONSERVATION TECHNICIAN TURBINE BLADE ASSEMBLER Unavailable Jelena David OD Unavailable [phone] Pao Joseph RN Unavailable Unavailable Esha Grimm PA-C Unavailable [phone] Valery Veronica PA-C Unavailable Rey Tay MD Unavailable Rocky Zepeda DO Unavailable Philip Dumont MD Unavailable Meredith Carrera PA-C Unavailable Neil Kent MD Unavailable Juan Pablo Emmanuel MD Unavailable Audrey Waite PA-C Unavailable Valery Veronica PA-C Unavailable Herminia Hatch MD Unavailable Jelena David OD Unavailable [phone] Juan Pablo Emmanuel MD Unavailable Maru Man PA-C Unavailable + Maru Man PA-C Unavailable + Frankie Jelena Garcia OD Unavailable [phone] Encounter Details Date Type Department Care Team (Late st Contact Info) Description 07/07/2022 MyC Medical Advice [facility] [address] [facility] [address] [place] [address] Livan Sharif MD [address] [facility] [address] [place], [place] 950175 Social History Tobacco Use Types Packs/Day Years [...] How often do you attend jewish or alevism serv ices? Never 09/22/2021 Do [...] PHQ-9 if positive 1 05/13/2022 [facility]at ional [...] in a assisted (including now)? No 09/22/2021 [place] Depression Scale Answer Date Recorded [place] [...] PM CDT Legal Sex Female 4:13 AM SOIL CONSERVATION TEACHER Gender Identity Female 03/02/2021 5:45 PM CDT Sexual Orientation Straight 02/28/2020 12 :51 AM CDT COVID-19 Exposure Response Date Recorded In the last 10 days, have yo u been in contact with someone who was confirmed or suspected to have Coronavirus/COVID-19? No / Unsure 06/25/2022 8:44 AM SOIL CONSERVATION TEACHER documented as of this encounter Plan of Treatment Upcoming Encounters Date Type Department Care Team (Late st Contact Info) Description 11/21/2024 7:00 AM CDT Office Visit [address] [phone] Maru Man PA-C [address] [address] 12/20/2024 2:30 PM CDT [facility] [phone] [place] [address] Esha Grimm PA-C [id number] [place] [address] 04/16/2025 11:00 AM CDT Virtual Visit [facility] Gastroenterology Clinic [address] 4th [place] [phone] Meredith Carrera PA-C [address] [place] [address] documented as of this encounter Visit Diagnoses [...] as of this encounter Care Teams Enterprise Resource Planner Relationship Specialty Start Date End Date Marija Edgar APRN TURBINE BLADE ASSEMBLER PCP - General Nurse Practitioner 04/30/20 04/14/23 Esha Grimm PA-C [address] [place] [phone] PCP - General Family Medicine 05/04/23 Lita Oseguera Personal Advocate & Liaison (PAL) 02/28/20 03/27/23 Marija Edgar APRN TURBINE BLADE ASSEMBLER Assigned PCP 06/08/20 04/29/23 Keisha Dotson MD [address] [place], [place] 370155 Assigned Neuroscience Provider 06/04/20 04/01/23 [facility] [address] [place], [place] 393286 Pharmacist Pharmacist 04/17/21 Rain Galaviz PA-C [address] [place] [address] [address] [facility] [place] [address] Physician Census Clerk Dermatology 04/28/21 Tavia Wyatt MD [address] [place] [address] [address] [facility] [place] [address] Dermatology 07/14/21 Erica Farrell APRN TURBINE BLADE ASSEMBLER [address] [place] [address] Nurse Practitioner Cardiovascular Disease 09/09/21 Rich Barrett MD [address] [place] [address] Physician Ophthalmology 01/21/22 Neil Kent MD 500 [place], [place] 429305 Dermatology 02/24/22 Roney Story DPM [address] [facility] [address] [place], [place] 710597 Assigned Musculoskeletal Provider 03/20/22 08/13/22 Diana Desir, [facility] [address] [facility] [place], [place] 753676 Assigned MTM Pharmacist 04/07/22 Jelena David OD [address] [facility] [place] [address] Assigned Surgical Provider 05/08/22 10/08/22 Livan Sharif MD [address] [place] [address] [place] 171325 Cardiovascular Disease 05/14/22 Livan Sharif MD [address] [place] [address] [place] 537985 Assigned Heart and Vascular Provider 06/12/22 07/23/22 Cahterine Cm MD [address] [place] [address] [place] 631575 Cardiovascular Disease 07/21/22 Valery Veronica, PA-C 909 [place], [place] 222415 Physician Census Clerk Dermatology 07/21/22 Catherine Cm MD [address] [place] [address] [place] 455965 Assigned Heart and Vascular Provider 07/24/22 11/05/22 Johnny Murillo MD [address] [address] Assigned Musculoskeletal Provider 08/14/22 10/08/22 rBea Quinn APRN TURBINE BLADE ASSEMBLER 500 [place] [address] Nurse Practitioner Dermatology 09/21/22 Brea Quinn APRN TURBINE BLADE ASSEMBLER 6401 [place] [address] Assigned Surgical Provider 10/09/22 05/01/24 [place] [address] [facility] 300 [place] [address] Assigned Musculoskeletal Provider 10/09/22 05/01/24 Livan Sharif MD [address] [facility] [address] [place] [address] Assigned Heart and Vascular Provider 11/06/22 11/12/22 Catherine Cm MD [address] [facility] [address] [place] [address] Assigned Heart and Vascular Provider 11/13/22 05/27/23 Sydnie Martinez RN Personal Advocate & Liaison (PAL) Family Medicine 03/28/23 07/31/23 Alfonso Renteria MD 5775 [facility] 200 [place], [place] 568726 Assigned Neuroscience Provider 04/02/23 09/29/24 Cheng Todd PA-C [address] [place] [address] [id number] Assigned PCP 04/30/23 07/15/23 Radha Lomeli APRN CNP [address] [place] [address] Assigned Heart and Vascular Provider 05/28/23 Jelena David OD [address] [facility] [place] [address] MD Ophthalmology 06/15/23 Pao Joseph, RN Personal Advocate & Liaison (PAL) Nurse 08/01/23 11/07/23 Esha Grimm PA-C [address] [place] [phone] Assigned PCP 07/16/23 Valery Veronica PA-C [address] [place] [address] 850615 Physician Census Clerk Dermatology 09/19/23 Rey Tay MD [address] [place] [address] 125145 MD Gastroenterology 09/20/23 Rocky Zepeda DO [address] [place] [address] 574775 Physician Gastroenterology 09/20/23 Philip Dumont MD [address] [place] [address] 682615 Physician Ophthalmology 09/22/23 Meredith Carrera PA-C [address] [place] [address] 023565 Assigned Gastroenterology Provider 11/01/23 Neil Kent MD [address] [place] [address] Dermatology 11/02/23 [place] [address] [place] [address] Neurological Surgery 12/26/23 Audrey Waite PA-C [address] [place] [address] Physician Census Clerk Dermatology 02/28/24 Valery Veronica PA-C [address]38 [address] [place] [address] Physician Census Clerk Dermatology 04/10/24 Herminia Hatch MD [address] [place] [address] [id number] Assigned Rheumatology Provider 07/02/24 Jelena David OD [address] [place] [address] [place] [address] Ophthalmology 08/30/24 [place] [address] [place] [address] Assigned Neuroscience Provider 09/30/24 Maru Man PA-C [address] [place] [address] Physician Census Clerk Dermatology 10/03/24 Maru Man PA-C [address] [place] [address] Physician Census Clerk Dermatology 10/22/24 [place] [address] [place] [address] [place] [address] Assigned Surgical Provider 10/31/24 documented as of this encounter
--- OUTSIDE RECORDS SUMMARY | 2024-11-21 05:17 | XMS_ITS | Encounter Summary ---
Author Organization [facility] Address [address] [place] [address] Care Team Providers Care Assistant Education Director Name Role Phone Lita Oseguera Unavailable Unavailable Marija Edgar APRN STRINGING MACHINE TENDER Primary Care Provider + Marija Edgar APRN STRINGING MACHINE TENDER Unavailable [phone] Keisha Dotson MD Unavailable [phone] Diana Desir [facility] Unavailable [phone] Rain Galaviz PA-C Unavailable Tavia Wyatt MD Unavailable Erica Farrell APRN STRINGING MACHINE TENDER Unavailable Rich Barrett MD Unavailable [phone] Neil Kent MD Unavailable Roney Story DPM Unavailable Diana Desir [facility] Unavailable Jelena David OD Unavailable Livan Sharif MD Unavailable Livan Sharif MD Unavailable Catherine Cm MD Unavailable + Valery Veronica PA-C Unavailable Catherine Cm MD Unavailable + Johnny Murillo MD Unavailable [phone] Brea Quinn [facility] ANALYST STRINGING MACHINE TENDER Unavailable [phone] Brea Quinn [facility] ANALYST STRINGING MACHINE TENDER Unavailable [phone] Jose Francisco Johnson MD Unavailable Livan Sharif MD Unavailable Catherine Cm MD Unavailable + Sydnie Martinez RN Unavailable Unavailable Alfonso Renteria MD Unavailable [phone] Esha Grimm PA-C Primary Care Provider Cheng Todd PA-C Unavailable [phone] Radha Lomeli [facility] ANALYST STRINGING MACHINE TENDER Unavailable Jelena David OD Unavailable Pao Joseph RN Unavailable Unavailable Esha Grimm PA-C Unavailable [phone] Valery Veronica PA-C Unavailable Rey Tay MD Unavailable Rocky Zepeda DO Unavailable Philip Dumont MD Unavailable Meredith Carrera PA-C Unavailable Neil Kent MD Unavailable Juan Pablo Emmanuel MD Unavailable Audrey Waite PA-C Unavailable Valery Veronica PA-C Unavailable Herminia Hatch MD Unavailable Jelena David OD Unavailable [phone] Juan Pablo Emmanuel MD Unavailable [phone] Maru Man PA-C Unavailable + Maru Man PA-C Unavailable + Frankie Jelena Garcia OD Unavailable [phone] Encounter Details Date Type Department Care Team (Late st Contact Info) Description 07/20/2022 MyC Medical Advice [facility] [address] [facility] [address] [place] [address] Livan Sharif MD [address] [facility] [address] [place], [place] [address] Social History Tobacco Use Types Packs/Day Years [...] often do you attend oriental orthodox or congregation serv ices? Never 09/22/2021 Do [...] in a usp (including now)? No 09/22/2021 [place] Depression Scale [...] CDT Legal Sex Female 4:13 AM CLUB LOUNGE ATTENDANT Gender Identity Female 03/02/2021 5:45 PM CDT Sexual Orientation Straight 02/28/2020 12 :51 AM CDT COVID-19 Exposure Response Date Recorded In the last 10 days, have yo u been in contact with someone who was confirmed or suspected to have Coronavirus/COVID-19? No / Unsure 07/23/2022 6:45 AM CLUB LOUNGE ATTENDANT documented as of this encounter Plan of Treatment Upcoming Encounters Date Type Department Care Team ([facility] st Contact Info) Description 11/21/2024 7:00 AM CDT Office Visit [address] [phone] Maru Man PA-C [address] [address] 12/20/2024 2:30 PM CDT Office Visit [facility] [address] [place] [address] Esha Grimm PA-C [id number] [place] [address] 04/16/2025 11:00 AM CDT Virtual Visit [facility] [address] 4th [place] [phone] Meredith Carrera PA-C [address] [place] [address] documented as of this encounter Visit Diagnoses [...] Start Date End Date Marija Edgar APRN STRINGING MACHINE TENDER PCP - General Nurse Practitioner 04/30/20 04/14/23 Esha Grimm PA-C [address] [place] [phone] PCP - General Family Medicine 05/04/23 Lita Oseguera Personal Advocate & Liaison (PAL) 02/28/20 03/27/23 Marija Edgar APRN STRINGING MACHINE TENDER Assigned PCP 06/08/20 04/29/23 Keisha Dotson MD 909 [place], [place] 274065 Assigned Neuroscience Provider 06/04/20 04/01/23 [facility] [address] [place], [place] [address] Pharmacist Pharmacist 04/17/21 Rain Galaviz PA-C [address] [place] [address] [address] [facility] [place] [address] Physician Head Stock Operator Dermatology 04/28/21 Tavia Wyatt MD [address] [place] [address] [address] [facility] [place] [address] Dermatology 07/14/21 Erica Farrell APRN STRINGING MACHINE TENDER [address] [place] [address] Nurse Practitioner Cardiovascular Disease 09/09/21 Rich Barrett MD [address] [place] [address] Physician Ophthalmology 01/21/22 Neil Kent MD 500 [place], [place] 394525 Dermatology 02/24/22 Roney Story DPM [address] [facility] [address] [place], [place] 7833[address] Assigned Musculoskeletal Provider 03/20/22 08/13/22 Diana Desir, [facility] [address] [facility] [place], [place] 25[address]66 Assigned MTM Pharmacist 04/07/22 Jelena David OD [address] [facility] [place] [address] Assigned Surgical Provider 05/08/22 10/08/22 Livan Sharif MD [address] [place] [address] [place] [id number] Cardiovascular Disease 05/14/22 Livan Sharif MD [address] [place] [address] [place] 147575 Assigned Heart and Vascular Provider 06/12/22 07/23/22 Catherine Cm MD [address] [place] 065075 Cardiovascular Disease 07/21/22 Valery Veronica, PA-C 909 [place], [place] 143105 Physician Head Stock Operator Dermatology 07/21/22 Catherine Cm MD [address] [place] 230115 Assigned Heart and Vascular Provider 07/24/22 11/05/22 Johnny Murillo MD [address] [address] Assigned Musculoskeletal Provider 08/14/22 10/08/22 Brea Quinn APRN STRINGING MACHINE TENDER 500 [place] [address] Nurse Practitioner Dermatology 09/21/22 Brea Quinn APRN STRINGING MACHINE TENDER 6401 [place] [address] Assigned Surgical Provider 10/09/22 05/01/24 [place] [address] [facility] 300 [place] [address] Assigned Musculoskeletal Provider 10/09/22 05/01/24 Livan Sharif MD [address] [facility] [address] [place] [address] Assigned Heart and Vascular Provider 11/06/22 11/12/22 Catherine Cm MD [address] [facility] [address] [place] [address] Assigned Heart and Vascular Provider 11/13/22 05/27/23 Sydnie Martinez RN Personal Advocate & Liaison (PAL) Family Medicine 03/28/23 07/31/23 Alfonso Renteria MD 5775 [facility] 200 [place], [place] 779956 Assigned Neuroscience Provider 04/02/23 09/29/24 Cheng Todd PA-C [address] [place] [address] [phone] Assigned PCP 04/30/23 07/15/23 Radha Lomeli APRN CNP [address] [place] [address] Assigned Heart and Vascular Provider 05/28/23 Jelena David OD [address] [facility] [address] MD Ophthalmology 06/15/23 Pao Joseph, RN Personal Advocate & Liaison (PAL) Nurse 08/01/23 11/07/23 Esha Grimm PA-C [address] [place] [phone] Assigned PCP 07/16/23 Valery Veronica PA-C [address] [place] [address] 843195 Physician Head Stock Operator Dermatology 09/19/23 Rey Tay MD [address] [place] [address] 765995 MD Gastroenterology 09/20/23 Rocky Zepeda DO [address] [place] [address] 951085 Physician Gastroenterology 09/20/23 Philip Dumont MD [address] [place] [address] 489205 Physician Ophthalmology 09/22/23 Meredith Carrera PA-C [address] [place] [address] 480135 Assigned Gastroenterology Provider 11/01/23 Neil Kent MD [address] [place] [address] Dermatology 11/02/23 [place] [address] [place] [address] Neurological Surgery 12/26/23 Audrey Waite PA-C [address] [place] [address] Physician Head Stock Operator Dermatology 02/28/24 Valery Veronica PA-C [id number] [address] [place] [address] Physician Head Stock Operator Dermatology 04/10/24 Herminia Hatch MD [address] [place] [address] [phone] Assigned Rheumatology Provider 07/02/24 Jelena David OD [address] [place] [address] [place] [address] Ophthalmology 08/30/24 [place] [address] [place] [address] Assigned Neuroscience Provider 09/30/24 Maru Man PA-C [address] [place] [address] Physician Head Stock Operator Dermatology 10/03/24 Maru Man PA-C [address] [place] [address] Physician Head Stock Operator Dermatology 10/22/24 [place] [address] [place] [address] [place] [address] Assigned Surgical Provider 10/31/24 documented as of this encounter
--- OUTSIDE RECORDS SUMMARY | 2024-11-21 05:17 | XMS_ITS | Encounter Summary ---
Author Organization [facility] Address [address] [place] [address] Care Team Providers Care Neurology Nurse Name Role Phone Diana Desir [facility] Unavailable Rain Galaviz PA-C Unavailable Tavia Wyatt MD Unavailable Erica Farrell APRN SALESPERSON PARTS Unavailable Rich Barrett MD Unavailable [phone] Neil Kent MD Unavailable Diana Desir [facility] Unavailable [phone] Livan Sharif MD Unavailable Catherine Cm MD Unavailable + Valery Veronica PA-C Unavailable Brea Quinn WORKERS' COMPENSATION CLAIMS EXAMINER SALESPERSON PARTS Unavailable [phone] Brea Quinn WORKERS' COMPENSATION CLAIMS EXAMINER SALESPERSON PARTS Unavailable Jsoe Francisco Johnson MD Unavailable Alfonso Renteria MD Unavailable [phone] Esha Grimm PA-C Primary Care Provider Radha Lomeli APRN SALESPERSON PARTS Unavailable Jelena David OD Unavailable Pao Joseph RN Unavailable Unavailable AlfaJesusEsha M PA-C Unavailable [phone] Valery Veronica PA-C Unavailable Rey Tay [...] Contact Info) Description 08/25/2023 MyC Medical Advice [address] [address] Diana Desir, [facility] 4432 [place] [address] Social History Tobacco Use Types [...] Score 0 06/20/2023 [facility] [...] exercise at this level? 30 min 03/10/2023 [place] Depression Scale Answer Date Recorded [place] Depression Score 5 01/14/2021 Last EPDS Self [...] PM CDT Legal Sex Female 4:13 AM BLADDER TIER Gender Identity Female 03/02/2021 5:45 PM CDT Sexual Orientation Straight 02/28/2020 12 :51 AM CDT documented as of this encounter Plan of Treatment Upcoming Encounters Date Type Department Care Team (Late st Contact Info) Description 11/21/2024 7:00 AM CDT Office Visit [facility] [address] [phone] Maru Man PA-C [address] [address] 12/20/2024 2:30 PM CDT Office Visit [facility] [address] [place] [address] Esha Grimm PA-C [address] [place] [address] 04/16/2025 11:00 AM CDT Virtual Visit [facility] [address] 4th [place] [phone] Meredith Carrera PA-C [address] [place] [address] 973755 documented as of this encounter Visit Diagnoses [...] Total Score: 4 06/20/20 23 8:40 AM BLADDER TIER documented as of this encounter Care Teams Neurology Nurse Relationship Specialty Start Date End Date Esha Grimm PA-C [address] [place] [address] PCP - General Family Medicine 05/04/23 Diana Desir, [facility] [address] [place] [address] Pharmacist Pharmacist 04/17/21 Rain Galaviz PA-C [address] [place] [address] [address] [place] [address] Physician System Technologist Dermatology 04/28/21 Tavia Wyatt MD [address] [place] [address] [address] [place] [address] Dermatology 07/14/21 Erica Farrell APRN SALESPERSON PARTS [address] [place] 6[address]75 Nurse Practitioner Cardiovascular Disease 09/09/21 Rich Barrett MD [address] [place] [address]245 Physician Ophthalmology 01/21/22 Neil Kent MD 500 [place], [place] 622815 Dermatology 02/24/22 Diana Desir, [facility] 30[address] [place], [place] [address]206 Assigned MTM Pharmacist 04/07/22 Livan Sharif MD [address] [place] [address] Cardiovascular Disease 05/14/22 Catherine Cm MD [address] [place] [address] Cardiovascular Disease 07/21/22 Valery Veronica PA-C 909 [place] [address] Physician System Technologist Dermatology 07/21/22 Brea Quinn APRN SALESPERSON PARTS 500 [place] [address] Nurse Practitioner Dermatology 09/21/22 Brea Quinn APRN SALESPERSON PARTS 6401 [place] [address] Assigned Surgical Provider 10/09/22 05/01/24 [place] [address] [place] [address] Assigned Musculoskeletal Provider 10/09/22 05/01/24 Alfonso Renteria MD 5775 [facility] 200 [place], [place] 08[address]8416 Assigned Neuroscience Provider 04/02/23 09/29/24 Radha Lomeli APRN SALESPERSON PARTS [address] [facility] [address] [place] [address] Assigned Heart and Vascular Provider 05/28/23 Jelena David OD [address] [facility] [place] [address] Ophthalmology 06/15/23 Pao Joseph, VJ Personal Advocate & Liaison (PAL) Nurse 08/01/23 11/07/23 Esha Grimm PA-C [address] [place] [phone] Assigned PCP 07/16/23 Valery Veronica PA-C 9 [place] [address] Physician System Technologist Dermatology 09/19/23 Rey Tay MD [address] [place] [address] 909115 MD Gastroenterology 09/20/23 Rocky Zepeda DO [address] [place] [address] 726185 Physician Gastroenterology 09/20/23 Philip Dumont MD [address] [place] [address] 689225 Physician Ophthalmology 09/22/23 Meredith Carrera PA-C [address] [place] [address] 543365 Assigned Gastroenterology Provider 11/01/23 Neil Kent MD [address] 302320 Dermatology 11/02/23 [place] [address] [facility] [place] [place] [address] Neurological Surgery 12/26/23 Audrey Waite PA-C [address] [place] [address] Physician System Technologist Dermatology 02/28/24 Valery Veronica PA-C [address] [facility] [place] [address] Physician System Technologist Dermatology 04/10/24 Herminia Hatch MD [facility]5 [place] [address] Assigned Rheumatology Provider 07/02/24 Jelena David OD [address] [place] [address] [place] [address] Ophthalmology 08/30/24 [place] [address] [place] [address] Assigned Neuroscience Provider 09/30/24 Maru Man PA-C [address] [place] [address] Physician System Technologist Dermatology 10/03/24 Maru Man PA-C [address] [place] [address] Physician System Technologist Dermatology 10/22/24 Jelena David OD [address] [place] [address] [place] [address] Assigned Surgical Provider 10/31/24 documented as of this encounter
--- OUTSIDE RECORDS SUMMARY | 2024-11-21 05:17 | XMS_ITS | Encounter Summary ---
Author Organization [place] Address [address] [place] [address] Care Team Providers Care Egg Worker Name Role Phone Diana Desir [facility] Unavailable [phone] Rain Galaviz PA-C Unavailable [phone] Tavia Wyatt MD Unavailable Erica Farrell APRN RESTAURANT GREETER Unavailable Rich Barrett MD Unavailable [phone] Neil Kent MD Unavailable Diana Desir [facility] Unavailable Livan Sharif MD Unavailable Catherine Cm MD Unavailable + Valery Veronica PA-C Unavailable Brea Quinn CLAMP OPERATOR RESTAURANT GREETER Unavailable Brea Quinn CLAMP OPERATOR RESTAURANT GREETER Unavailable [phone] Jose Francisco Johnson MD Unavailable Alfonso Renteria MD Unavailable [phone] Esha Grimm PA-C Primary Care Provider Radha Lomeli APRN RESTAURANT GREETER Unavailable Jelena David OD Unavailable Pao Joseph RN Unavailable Unavailable AlfaWicholincoln Medina PA-C Unavailable [phone] Valery Veronica PA-C Unavailable [phone] Rey Tay MD Unavailable Duane Rockyanne [place] Unavailable Philip Dumont MD Unavailable [phone] Meredith Carrera PA-C Unavailable [phone] Neil Kent MD Unavailable Juan Pablo Emmanuel MD Unavailable Audrey Waite PA-C Unavailable [phone] JeremíasValery damon PA-C Unavailable Herminia Hatch MD Unavailable Jelena David OD Unavailable Juan Pablo Emmanuel MD Unavailable Maru Man PA-C Unavailable Maru Man PA-C Unavailable [phone] Jelena David OD Unavailable [phone] Encounter Details Date Type Department Care Team (Late st Contact Info) Description 08/31/2023 MyC Medical [facility]ice [facility] [address] [facility] [address] [place] [address] Amalia Reyes, VJ Social History [...] exercise at this level? 30 min 03/10/2023 [place] Depression Scale Answer Date Recorded [place] Depression Score 5 01/14/2021 Last EPDS Self [...] PM CDT Legal Sex Female 4:13 AM TALENT DIRECTOR Gender Identity Female 03/02/2021 5:45 PM CDT Sexual Orientation Straight 02/28/2020 12 :51 AM CDT documented as of this encounter Plan of Treatment Upcoming Encounters Date Type Department Care Team (Late st Contact Info) Description 11/21/2024 7:00 AM CDT Office Visit [facility] [address] [phone] Maru Man PA-C [address] [address] 12/20/2024 2:30 PM CDT Office Visit [facility] [address] [place] [phone] Esha Grimm PA-C [address] [place] [address] 04/16/2025 11:00 AM CDT Virtual Visit [facility] Clinic [address] 4th [place] [phone] Meredith Carrera PA-C [address] [place] [address] 041135 documented as of this encounter Visit Diagnoses [...] Total Score: 4 06/20/20 23 8:40 AM TALENT DIRECTOR documented as of this encounter Care Teams Egg Worker Relationship Specialty Start Date End Date Esha Grimm PA-C [address] [place] [address] PCP - General Family Medicine 05/04/23 Diana Desir, [facility] [place] [address] Pharmacist Pharmacist 04/17/21 Rain Galaviz PA-C [address] [place] [address] DR [facility] [address] Physician Roof Truss Machine Tender Dermatology 04/28/21 Tavia Wyatt MD [address] [place] [address] [place] [address] Dermatology 07/14/21 Erica Farrell APRN RESTAURANT GREETER [address] [place] [address] Nurse Practitioner Cardiovascular Disease 09/09/21 Rich Barrett MD [address] [place] 436485 Physician Ophthalmology 01/21/22 Neil Kent MD [address] [place] [address] 677275 Dermatology 02/24/[address] [facility] [address] [place] [address] 667416 Assigned [place] Pharmacist 04/07/22 Livan Sharif MD [address] [facility] [place] [address] Cardiovascular Disease 05/14/22 Catherine Cm MD [address] [facility] [place] [place] 331285 Cardiovascular Disease 07/21/22 Valery Veronica, PA-C [address] [place] [address] 315795 Physician Roof Truss Machine Tender Dermatology 07/21/22 Brea Quinn APRN RESTAURANT GREETER 500 [place], [place] 776705 Nurse Practitioner Dermatology 09/21/22 Brea Quinn APRN RESTAURANT GREETER 6401 [place] [address] Assigned Surgical Provider 10/09/22 05/01/24 [place] [address] [address] [facility] 300 [place] [address] Assigned Musculoskeletal Provider 10/09/22 05/01/24 Alfonso Renteria MD 5775 [facility] 200 [place] [address] Assigned Neuroscience Provider 04/02/23 09/29/24 Radha Lomeli APRN RESTAURANT GREETER 6405 [facility] [address] [place] [address] Assigned Heart and Vascular Provider 05/28/23 Jelena David OD [address] [facility] [place] [address] Ophthalmology 06/15/23 Pao Joseph, RN Personal Advocate & Liaison (PAL) Nurse 08/01/23 11/07/23 Esha Grimm PA-C [address] [place] [address]275883 Assigned PCP 07/16/23 Valery Veronica PA-C [address] [place] [address] Physician Roof Truss Machine Tender Dermatology 09/19/23 Rey Tay MD [address] [place] [address] MD Gastroenterology 09/20/23 Rocky Zepeda DO [address] [place] [address] Physician Gastroenterology 09/20/23 Philip Dumont MD [address] [place] [address] Physician Ophthalmology 09/22/23 Meredith Carrera PA-C [address] [place] [address] Assigned Gastroenterology Provider 11/01/23 Neil Kent MD [address] [address] Dermatology 11/02/23 [place] [address] [place] [address] Neurological Surgery 12/26/23 Audrey Waite PA-C [address] [place] [address] Physician Roof Truss Machine Tender Dermatology 02/28/24 Valery Veronica PA-C 6[address]341 [address] [place] [address] Physician Roof Truss Machine Tender Dermatology 04/10/24 Herminia Hatch MD [facility]5 [place], [place] 89533125 Assigned Rheumatology Provider 07/02/24 Jelena David OD [facility] [place] [address] Ophthalmology 08/30/24 [place] [address] [place] [address] Assigned Neuroscience Provider 09/30/24 Maru Man PA-C [address] [place] [address] Physician Roof Truss Machine Tender Dermatology 10/03/24 Maru Man PA-C [address] [place] [address] Physician Roof Truss Machine Tender Dermatology 10/22/24 Jelena David OD [facility] [place] [address] Assigned Surgical Provider 10/31/24 documented as of this encounter
--- OUTSIDE RECORDS SUMMARY | 2024-11-21 05:17 | XMS_ITS | Encounter Summary ---
Author Organization [facility] Address [address] [place] [address] Care Team Providers Care Flat Optical Element Maker Name Role Phone Lita Oseguera Unavailable Unavailable Marija Edgar APRN SENIOR SYSTEMS DEVELOPER Primary Care Provider + Marija Edgar APRN SENIOR SYSTEMS DEVELOPER Unavailable [phone] Keisha Dotson MD Unavailable Diana Desir [facility] Unavailable Rain Galaviz PA-C Unavailable Tavia Wyatt MD Unavailable Erica Farrell APRN SENIOR SYSTEMS DEVELOPER Unavailable Rich Barrett MD Unavailable [phone] Neil Kent MD Unavailable Roney Story DPM Unavailable Diana Desir [facility] Unavailable Jelena David OD Unavailable Livan Sharif MD Unavailable Livan Sharif MD Unavailable Catherine Cm MD Unavailable + Valery Veronica PA-C Unavailable Catherine Cm MD Unavailable + Johnny Murillo MD Unavailable [phone] Brea Quinn NEON SIGN ERECTOR SENIOR SYSTEMS DEVELOPER Unavailable [phone] Brea Quinn NEON SIGN ERECTOR SENIOR SYSTEMS DEVELOPER Unavailable [phone] Jose Francisco Johnson MD Unavailable Livan Sharif MD Unavailable Catherine Cm MD Unavailable + Sydnie Martinez RN Unavailable Unavailable Alfonso Renteria MD Unavailable [phone] Esha Grimm PA-C Primary Care Provider Cheng Todd PA-C Unavailable [phone] Radha Lomeli NEON SIGN ERECTOR SENIOR SYSTEMS DEVELOPER Unavailable Jelena David OD Unavailable Pao Joseph RN Unavailable Unavailable Esha Grimm PA-C Unavailable Valery Veronica PA-C Unavailable Rey Tay MD Unavailable Rocky Zepeda DO Unavailable Philip Dumont MD Unavailable Meredith Carrera PA-C Unavailable [phone] Neil Kent MD Unavailable Juan Pablo Emmanuel MD Unavailable Audrey Waite PA-C Unavailable Valery Veronica PA-C Unavailable Herminia Hatch MD Unavailable Jelena David OD Unavailable Juan Pablo Emmanuel MD Unavailable Maru Man PA-C Unavailable [phone] Maru Man PA-C Unavailable [phone] Reason for Visit * Reason Onset Date Comments Appointment 06/14/2022 Stress test and monitor on the same day Encounter Details Date Type Department Care Team (Late st Contact Info) Description 06/14/2022 Telephone [facility] Heart [facility] [address] [place] [address] Livan Sharif MD [address] [facility] [address] [place] [address] Appointment (Stress test [...] do you attend chur or mandaen services? 1 to 4 times [...] Answer Date Recorded PHQ-2 Score 1 10/24/2024 [facility] [...] exercise at this level? 20 min 05/07/2024 [place] Depression Scale Answer Date Recorded [place] Depression Score 5 01/14/2021 Last EPDS Self [...] CDT Legal Sex Female 4:13 AM NON LICENSED OPERATOR Gender Identity Female 03/02/2021 5:45 PM [...] Not Applicable Thank you! [facility] LICENSED OPERATOR documented in this encounter Plan of Treatment Upcoming Encounters Date Type Department Care Team (Late st Contact Info) Description 11/21/2024 7:00 AM CDT Office Visit [facility] [address] [address] Maru Man PA-C [address] [address] 12/20/2024 2:30 PM CDT Office Visit [address] [phone] Esha Grimm PA-C [id number] [place] [address] 04/16/2025 11:00 AM CDT Virtual Visit [facility] [address] [place] [phone] Meredith Carrera PA-C [address] [place] [address] documented as of this encounter Visit Diagnoses Not on filedocumented in this encounter Additional Health Concerns Infection Onset Date Last Indicated Resolved Time COVID-19 06/09/2022 06/09/2022 06/30/2022 11:4 1 PM NON LICENSED OPERATOR Rule Out COVID-19 11/10/2022 11/10/2022 11/11/2022 [...] as of this encounter Care Teams Flat Optical Element Maker Relationship Specialty Start Date End Date Marija Edgar APRN SENIOR SYSTEMS DEVELOPER PCP - General Nurse Practitioner 04/30/20 04/14/23 Esha Grimm PA-C [address] [place] [phone] PCP - General Family Medicine 05/04/23 Lita Oseguera Personal Advocate & Liaison (PAL) 02/28/20 03/27/23 Marija Edgar APRN SENIOR SYSTEMS DEVELOPER Assigned PCP 06/08/20 04/29/23 Keisha Dotson MD 9 [place] [address] Assigned Neuroscience Provider 06/04/20 04/01/23 Diana Desir, [facility] [address] [facility] [place] [address] Pharmacist Pharmacist 04/17/21 Rain Galaviz PA-C [address] [place] [address] [place] [address] Physician Broom Machine Operator Dermatology 04/28/21 Tavia Wyatt MD [address] [place] [address] [place] [address] Dermatology 07/14/21 Erica Farrell APRN SENIOR SYSTEMS DEVELOPER [address] [place] [address] Nurse Practitioner Cardiovascular Disease 09/09/21 Rich Barrett MD [address] [place] [address] Physician Ophthalmology 01/21/22 Neil Kent MD 500 [place] [address] Dermatology 02/24/22 Roney Story DPM [address] [facility] 300 [place] [address] Assigned Musculoskeletal Provider 03/20/22 08/13/22 Diana Desir, [facility] [address] [place] [address] Assigned MTM Pharmacist 04/07/22 Jelena David OD [address] [facility] [place] [address] Assigned Surgical Provider 05/08/22 10/08/22 Livan Sharif MD [address] [place] [address] [place] [address]72[address] Cardiovascular Disease 05/14/22 Livan Sharif MD [address] [place] [address] [place] [address] Assigned Heart and Vascular Provider 06/12/22 07/23/22 Catherine Cm MD [address] [address] [place] [address] Cardiovascular Disease 07/21/22 Valery Veronica, PA-C [address] [place] [address] 393815 Physician Broom Machine Operator Dermatology 07/21/22 Catherine Cm MD [address] [address] [place] [address] Assigned Heart and Vascular Provider 07/24/22 11/05/22 Johnny Murillo MD [address] [place] [address] Assigned Musculoskeletal Provider 08/14/22 10/08/22 Brea Quinn APRN SENIOR SYSTEMS DEVELOPER [address] [place] [address] 428225 Nurse Practitioner Dermatology 09/21/22 Brea Quinn APRN SENIOR SYSTEMS DEVELOPER [address] [place] [address] Assigned Surgical Provider 10/09/22 05/01/24 [place] [address] [place] [address] Assigned Musculoskeletal Provider 10/09/22 05/01/24 Livan Sharif MD [address] [place] [address] [place] [address] Assigned Heart and Vascular Provider 11/06/22 11/12/22 Catherine Cm MD [address] [place] [address] [place] [address] Assigned Heart and Vascular Provider 11/13/22 05/27/23 Sydnie Martinez RN Personal Advocate & Liaison (PAL) Family Medicine 03/28/23 07/31/23 Alfonso Renteria MD 5775 [facility] 200 [place] [address] Assigned Neuroscience Provider 04/02/23 09/29/24 Cheng Todd PA-C [address] [place] [address] [id number] Assigned PCP 04/30/23 07/15/23 Radha Lomeli APRN SENIOR SYSTEMS DEVELOPER [address] [place] [address] Assigned Heart and Vascular Provider 05/28/23 Jelena David OD [address] [place] [address] Ophthalmology 06/15/23 Pao Joseph, VJ Personal Advocate & Liaison (PAL) Nurse 08/01/23 11/07/23 Esha Grimm PA-C [address] [place] [phone] Assigned PCP 07/16/23 Valery Veronica PA-C [address] [place] [place] [address] Physician Broom Machine Operator Dermatology 09/19/23 Rey Tay MD [address] [place] [address] MD Gastroenterology 09/20/23 Rocky Zepeda DO [address] [place] [address] Physician Gastroenterology 09/20/23 Philip Dumont MD [address] [place] [address] Physician Ophthalmology 09/22/23 Meredith Carrera PA-C [address] [place] [address] Assigned Gastroenterology Provider 11/01/23 Neil Kent MD [address] [address] Dermatology 11/02/23 [place] [address] [place] [address] Neurological Surgery 12/26/23 Audrey Waite PA-C [address] [place] [address] 565935 Physician Broom Machine Operator Dermatology 02/28/24 Valery Veronica PA-C [address] [place] [address] Physician Broom Machine Operator Dermatology 04/10/24 Herminia Hatch MD [address]75 [place], [place] [id number] Assigned Rheumatology Provider 07/02/24 Jelena David OD [address] [place] [address] Ophthalmology 08/30/24 [place] [address] [place] [address] Assigned Neuroscience Provider 09/30/24 Maru Man PA-C [address] [place] [address] Physician Broom Machine Operator Dermatology 10/03/24 Maru Man PA-C [address] [place] [address] Physician Broom Machine Operator Dermatology 10/22/24 documented as of this encounter
--- OUTSIDE RECORDS SUMMARY | 2024-11-21 05:17 | XMS_ITS | Encounter Summary ---
Author Organization [facility] Address [address] [place] [address] Care Team Providers Care Research Neuropsychologist Name Role Phone Lita Oseguera Unavailable Unavailable Marija Edgar APRN AUTOMOTIVE MACHINIST APPRENTICE Primary Care Provider + Marija Edgar APRN AUTOMOTIVE MACHINIST APPRENTICE Unavailable Keisha Dotson MD Unavailable [phone] Diana Desir [facility] Unavailable [phone] Rain Galaviz PA-C Unavailable Tavia Wyatt MD Unavailable Erica Farrell APRN AUTOMOTIVE MACHINIST APPRENTICE Unavailable Rich Barrett MD Unavailable [phone] Neil Kent MD Unavailable Roney Story DPM Unavailable Diana Desir [facility] Unavailable Jelena David OD Unavailable Galo Burrell MD Unavailable Unavailable Livan Sharif MD Unavailable Livan Sharif MD Unavailable Catherine Cm MD Unavailable + Valery Veronica PA-C Unavailable Catherine Cm MD Unavailable + Johnny Murillo MD Unavailable [phone] Brea Quinn SCIENCE MANAGER AUTOMOTIVE MACHINIST APPRENTICE Unavailable [phone] Brea Quinn SCIENCE MANAGER AUTOMOTIVE MACHINIST APPRENTICE Unavailable [phone] Jose Francisco Johnson MD Unavailable Livan Sharif MD Unavailable Catherine Cm MD Unavailable + Sydnie Martinez RN Unavailable Unavailable Alfonso Renteria MD Unavailable Esha Grimm PA-C Primary Care Provider Cheng Todd PA-C Unavailable Radha Lomeli SCIENCE MANAGER AUTOMOTIVE MACHINIST APPRENTICE Unavailable Jelena David Radha OD Unavailable Pao Joseph RN Unavailable Unavailable Esha Grimm PA-C Unavailable [phone] JeremíasValery damon PA-C Unavailable [phone] Rey Tay MD Unavailable Rocky Zepeda DO Unavailable Philip Dumont MD Unavailable [phone] Meredith Carrera PA-C Unavailable [phone] Neil Kent MD Unavailable Juan Pablo Emmanuel MD Unavailable Audrey Waite PA-C Unavailable Valery Veronica PA-C Unavailable [phone] Herminia Hatch MD Unavailable Jelena David OD Unavailable [phone] Juan Pablo Emmanuel MD Unavailable Maru Man PA-C Unavailable [phone] aMru Man PA-C Unavailable + Jelena David OD Unavailable [phone] Encounter Details Date Type Department Care Team (Late st Contact Info) Description 05/11/2022 MyC Medical Advice [address] [address] Diana Desir, [facility] [address] [place], [place] [phone] Social History Tobacco Use Types Packs/Day Years [...] How often do you attend hinduism or presybeterian serv ices? Never 09/22/2021 Do [...] points; Administer PHQ-9 if positive 1 05/13/2022 [facility] [...] in a retirement (including now)? No 09/22/2021 [place] Depression Scale Answer Date Recorded [place] Depression Score 5 01/14/2021 Last EPDS Self Harm Result Not on file 01/14 Education Answer Date Recorded What is the highest level of school you have completed or the highest degree you have received? 12th grade 08/07/2020 Comments No Sex and Gender Information Value Date Recorded Sex Assigned at Female 03/02/2021 5:45 PM CDT Legal Sex Female 4:13 AM MEDICAL OFFICE ASSISTANT INSTRUCTOR Gender Identity Female 03/02/2021 5:45 PM [...] 11/21/2024 7:00 AM CDT Office Visit [address] [address] Maru Man PA-C [address] [place] [address] 12/20/2024 2:30 PM CDT Office Visit [facility] [address] [place] [address] Esha Grimm PA-C [address] [place] [address] 04/16/2025 11:00 AM CDT Virtual Visit [facility] [place] [address] [place] [address] [address] 4[address] [place] [address] Meredith Carrera PA-C [address] [place] [address] documented as of this encounter Visit Diagnoses Not on filedocumented in this encounter Additional Health Concerns Infection Onset Date Last Indicated Resolved Time Rule Out COVID-19 05/17/2022 05/17/2022 05/17/2022 10:20 PM MEDICAL OFFICE ASSISTANT INSTRUCTOR Rule Out COVID-19 06/09/2022 06/09/2022 06/09/2022 9:35 AM MEDICAL OFFICE ASSISTANT INSTRUCTOR COVID-19 06/09/2022 06/09/2022 06/30/2022 11:4 1 PM MEDICAL OFFICE ASSISTANT INSTRUCTOR Rule Out COVID-19 11/10/2022 11/10/2022 11/11/2022 [...] as of this encounter Care Teams Research Neuropsychologist Relationship Specialty Start Date End Date Marija Edgar APRN CNP PCP - General Nurse Practitioner 04/30/20 04/14/23 Esha Grimm PA-C [address] [place] [phone] PCP - General Family Medicine 05/04/23 Lita Oseguera Personal Advocate & Liaison (PAL) 02/28/20 03/27/23 Marija Edgar APRN AUTOMOTIVE MACHINIST APPRENTICE Assigned PCP 06/08/20 04/29/23 Keisha Dotson MD [address]09 [place] [address] Assigned Neuroscience Provider 06/04/20 04/01/23 Diana Desir, [facility] 3033 [place] [address] Pharmacist Pharmacist 04/17/21 Rain Galaviz PA-C [address] [place] [address] [address] [place] [address] Physician Manager Validation Dermatology 04/28/21 Tavia Wyatt MD [address] [place] [address] [address] [place] [id number] Dermatology 07/14/21 Erica Farrell APRN AUTOMOTIVE MACHINIST APPRENTICE [address] [place] 019585 Nurse Practitioner Cardiovascular Disease 09/09/21 Rich Barrett MD [address] [place] [address] Physician Ophthalmology 01/21/22 Neil Kent MD 500 [place] [address] Dermatology 02/24/22 Roney Story DPM [address] [facility] [address] [place] [address] Assigned Musculoskeletal Provider 03/20/22 08/13/22 [facility] [address] [place], [place] 361366 Assigned MTM Pharmacist 04/07/22 Jelena David OD [address] [facility] [place] [address] Assigned Surgical Provider 05/08/22 10/08/22 Galo Burrell MD Assigned Heart and Vascular Provider 04/17/22 06/11/22 Livan Sharif MD [address] [place] [address] Cardiovascular Disease 05/14/22 Livan Sharif MD [address] [place] 105235 Assigned Heart and Vascular Provider 06/12/22 07/23/22 Catherine Cm MD [address] [place] 394215 Cardiovascular Disease 07/21/22 Valery Veronica, PA-C [address] [place] [address] 418295 Physician Manager Validation Dermatology 07/21/22 Catherine Cm MD [address] [place] [address] [place] [address] Assigned Heart and Vascular Provider 07/24/22 11/05/22 Johnny Murillo MD [address] [place] [address] Assigned Musculoskeletal Provider 08/14/22 10/08/22 Brea Quinn APRN AUTOMOTIVE MACHINIST APPRENTICE [address] [place] [address] 326045 Nurse Practitioner Dermatology 09/21/22 Brea Quinn APRN AUTOMOTIVE MACHINIST APPRENTICE [address] [place] [address] Assigned Surgical Provider 10/09/22 05/01/24 [place] [address] [address] Assigned Musculoskeletal Provider 10/09/22 05/01/24 Livan Sharif MD [address] [place] [address] [place] [address] Assigned Heart and Vascular Provider 11/06/22 11/12/22 Catherine Cm MD [address] [place] 1429500 [place] 385465 Assigned Heart and Vascular Provider 11/13/22 05/27/23 Sydnie Martinez, RN Personal Advocate & Liaison (PAL) Family Medicine 03/28/23 07/31/23 Alfonso Renteria MD 5775 [facility] 200 [place] [address] Assigned Neuroscience Provider 04/02/23 09/29/24 Cheng Todd PA-C [address] [place] [address] Assigned PCP 04/30/23 07/15/23 Radha Lomeli APRN AUTOMOTIVE MACHINIST APPRENTICE [address] [facility] [address] [place] [address] Assigned Heart and Vascular Provider 05/28/23 Jelena David OD [address] [facility] [place] [address] Ophthalmology 06/15/23 Pao Joseph RN Personal Advocate & Liaison (PAL) Nurse 08/01/23 11/07/23 Esha Grimm PA-C [address] [place] [address] Assigned PCP 07/16/23 Valery Veronica PA-C [address] [place] [address] 246265 Physician Manager Validation Dermatology 09/19/23 Rey Tay MD [address] [place] [address] 292005 Gastroenterology 09/20/23 Rocky Zepeda DO [address] [place] [address] Physician Gastroenterology 09/20/23 Philip Dumont MD 6 [place] [address] Physician Ophthalmology 09/22/23 Meredith Carrera PA-C [address] [place] [address] Assigned Gastroenterology Provider 11/01/23 Neil Kent MD [address] [place] [address] MD Dermatology 11/02/23 [place] [address] [facility] [place] [address] Neurological Surgery 12/26/23 Audrey Waite PA-C [address] [place] [address] Physician Manager Validation Dermatology 02/28/24 Valery Veronica PA-C [address]200 [address] [place] [address] Physician Manager Validation Dermatology 04/10/24 Herminia Hatch MD [address] [place] [address] [id number] Assigned Rheumatology Provider 07/02/24 Jelena David OD [address] [place] [address] [place] [address] Ophthalmology 08/30/24 [place] [address] [place] [address] Assigned Neuroscience Provider 09/30/24 Maru Man PA-C [address] [place] [address] Physician Manager Validation Dermatology 10/03/24 Maru Man PA-C [address] [place] [address] Physician Manager Validation Dermatology 10/22/24 Jelena David OD [address] [facility] [place] [address] Assigned Surgical Provider 10/31/24 documented as of this encounter
--- OUTSIDE RECORDS SUMMARY | 2024-11-21 05:17 | XMS_ITS | Encounter Summary ---
Author Organization [place] Address [address] [place] [address] Care Team Providers Care Web Content Developer Name Role Phone Diana Desir [facility] Unavailable Rain Galaviz PA-C Unavailable Tavia Wyatt MD Unavailable Erica Farrell APRN CORRECTION OFFICER PENITENTIARY Unavailable Rich Barrett MD Unavailable [phone] Neil Kent MD Unavailable Diana Desir [facility] Unavailable [phone] Livan Sharif MD Unavailable Catherine Cm MD Unavailable + Valery Veronica PA-C Unavailable [phone] Brea Quinn PROPERTY PORTFOLIO OFFICER CORRECTION OFFICER PENITENTIARY Unavailable Brea Quinn PROPERTY PORTFOLIO OFFICER CORRECTION OFFICER PENITENTIARY Unavailable Jose Francisco Johnson MD Unavailable Alfonso Renteria MD Unavailable [phone] Esha Grimm PA-C Primary Care Provider Radha Lomeli APRN CORRECTION OFFICER PENITENTIARY Unavailable Jelena David OD Unavailable Pao Joseph RN Unavailable Unavailable Esha Grimm Adam PA-C Unavailable [phone] Valery Veronica PA-C Unavailable [phone] Rey Tay MD Unavailable Rocky Zepeda DO Unavailable Philip Dumont MD Unavailable [phone] Meredith Carrera PA-C Unavailable [phone] Neil Kent MD Unavailable Juan Pablo Emmanuel MD Unavailable Audrey Waite PA-C Unavailable [phone] JeremíasValery damon PA-C Unavailable Herminia Hatch MD Unavailable Jelena David OD Unavailable Juan Pablo Emmanuel MD Unavailable Maru Man PA-C Unavailable Maru Man PA-C Unavailable Jelena David OD Unavailable Encounter Details Date Type Department Care Team (Late st Contact Info) Description 09/20/2023 MyC Medical Advice [facility] Gastroenterology Clinic [address] [place] [address] Jeffery Vieira, RN Social History [...] exercise at this level? 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 Gender Identity Female 03/02/2021 5:45 PM CDT Sexual Orientation Straight 02/28/2020 12 :51 AM CDT documented as of this encounter Plan of Treatment Upcoming Encounters Date Type Department Care Team (Late st Contact Info) Description 11/21/2024 7:00 AM CDT Office Visit [facility] [address] [address] Maru Man PA-C [address] [place] [address] 12/20/2024 2:30 PM CDT Office Visit [facility] [address] [place] [phone] Esha Grimm PA-C [address] [place] [phone] 04/16/2025 11:00 AM CDT Virtual Visit [facility] Gastroenterology Clinic [address] 4th [place] [address] Meredith Carrera PA-C [address] [place] [address] 649485 documented as of this encounter Visit Diagnoses [...] Total Score: 4 06/20/20 23 8:40 AM BISCUIT FACTORY WORKER documented as of this encounter Care Teams Web Content Developer Relationship Specialty Start Date End Date Esha Grimm PA-C [address] [place] [phone] PCP - General Family Medicine 05/04/23 Diana Desir, [facility] [address] [place] [address] Pharmacist Pharmacist 04/17/21 Rain Galaviz PA-C [address] [place] [address] [place] [address] Physician Tractor Distributor Dermatology 04/28/21 Tavia Wyatt MD [address] [place] [address] [address] [place] [address] Dermatology 07/14/21 Erica Farrell APRN CORRECTION OFFICER PENITENTIARY [address] [place] [address] Nurse Practitioner Cardiovascular Disease 09/09/21 Rich Barrett MD [address] [place] 224655 Physician Ophthalmology 01/21/22 Neil Kent MD [address] [place] [address] 453685 Dermatology 02/24/22 [facility] [address] [place] [address] Assigned [facility] Pharmacist 04/07/22 Livan Sharif MD [address] [place] [address] Cardiovascular Disease 05/14/22 Catherine Cm MD [address] [place] 5[address] Cardiovascular Disease 07/21/22 Valery Veronica, PA-C [address] [place] [address] 377355 Physician Tractor Distributor Dermatology 07/21/22 Brea Quinn APRN CORRECTION OFFICER PENITENTIARY 500 [place], [place] 383025 Nurse Practitioner Dermatology 09/21/22 Brea Quinn APRN CORRECTION OFFICER PENITENTIARY 6401 [place] [address] Assigned Surgical Provider 10/09/22 05/01/24 [place] [address] [address] Assigned Musculoskeletal Provider 10/09/22 05/01/24 Alfonso Renteria MD [address] [facility] 200 [place], [place] 673676 Assigned Neuroscience Provider 04/02/23 09/29/24 Radha Lomeli APRN CORRECTION OFFICER PENITENTIARY [address] [facility] [address] [place] [address] Assigned Heart and Vascular Provider 05/28/23 Jelena David OD [address] [facility] [place] [address] Ophthalmology 06/15/23 Pao Joseph, RN Personal Advocate & Liaison (PAL) Nurse 08/01/23 11/07/23 Esha Grimm PA-C [address] [place] [address] Assigned PCP 07/16/23 Valery Veronica PA-C [address] [place] [address] Physician Tractor Distributor Dermatology 09/19/23 Rey Tay MD [address] [place] [address] MD Gastroenterology 09/20/23 Rocky Zepeda DO [address] [place] [address] Physician Gastroenterology 09/20/23 Philip Dumont MD [address] [place] [address] Physician Ophthalmology 09/22/23 Meredith Carrera PA-C [address] [place] [address] Assigned Gastroenterology Provider 11/01/23 Neil Kent MD [address] [address] Dermatology 11/02/23 [place] [address] [address] Neurological Surgery 12/26/23 Audrey Waite PA-C [address] [place] [address] 023455 Physician Tractor Distributor Dermatology 02/28/24 Valery Veronica PA-C [id number] [place] [address] Physician Tractor Distributor Dermatology 04/10/24 Herminia Hatch MD [facility]5 [place], [place] [phone] Assigned Rheumatology Provider 07/02/24 Jelena David OD [address] [facility] [place] [address] Ophthalmology 08/30/24 [place] [address] [place] [address] Assigned Neuroscience Provider 09/30/24 Maru Man PA-C [address] [place] [address] Physician Tractor Distributor Dermatology 10/03/24 Maru Man PA-C [address] [place] [address] Physician Tractor Distributor Dermatology 10/22/24 Jelena David OD [address] [facility] [place] [address] Assigned Surgical Provider 10/31/24 documented as of this encounter
--- OUTSIDE RECORDS SUMMARY | 2024-11-21 05:17 | XMS_ITS | Encounter Summary ---
Author Organization [place] Address [address] [place] [address] Care Team Providers Care Box Stapler Name Role Phone Diana Desir [facility] Unavailable Rain Galaviz PA-C Unavailable Tavia Wyatt MD Unavailable Erica Farrell APRN CHILD WELFARE ASSISTANT Unavailable Rich Barrett MD Unavailable [phone] Neil Kent MD Unavailable Diana Desir [facility] Unavailable [phone] Livan Sharif MD Unavailable Catherine Cm MD Unavailable + Valery Veronica PA-C Unavailable Brea Quinn BED AND BREAKFAST INNKEEPER CHILD WELFARE ASSISTANT Unavailable Brea Quinn BED AND BREAKFAST INNKEEPER CHILD WELFARE ASSISTANT Unavailable [phone] Jose Francisco Johnson MD Unavailable Alfonso Renteria MD Unavailable [phone] Esha Grimm PA-C Primary Care Provider Radha Lomeli APRN CHILD WELFARE ASSISTANT Unavailable Jelena David OD Unavailable Pao Joseph RN Unavailable Unavailable AlfaJesusEsha M PA-C Unavailable [phone] Valery Veronica PA-C Unavailable [phone] Rey Tay MD Unavailable Rocky Zepeda DO Unavailable Philip Dumont MD Unavailable [phone] Meredith Carrera PA-C Unavailable [phone] Neil Kent MD Unavailable Juan Pablo Emmanuel MD Unavailable [phone] Audrey Waite PA-C Unavailable [phone] JeremíasValery damon PA-C Unavailable Herminia Hatch MD Unavailable Jelena David OD Unavailable Juan Pablo Emmanuel MD Unavailable [phone] Maru Man PA-C Unavailable Maru Man PA-C Unavailable [phone] Jelena David OD Unavailable Encounter Details Date Type Department Care Team (Late st Contact Info) Description 09/08/2023 MyC Medical Advice [facility] Gastroenterology Clinic [address] 4th [place] [address] Mary Kelsey Social History Tobacco [...] exercise at this level? 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 documented as of this encounter Care Teams Box Stapler Relationship Specialty Start Date End Date Esha Grimm PA-C [address] [place] [address] PCP - General Family Medicine 05/04/23 Diana Desir, [facility] [place] [address] Pharmacist Pharmacist 04/17/21 Rain Galaviz PA-C [address] [place] [address] DR [facility] [address] Physician Process Control Operator Dermatology 04/28/21 Tavia Wyatt MD [address] [place] [address] DR JENNI BARROSOEN [place] [address] Dermatology 07/14/21 Erica Farrell APRN CHILD WELFARE ASSISTANT [address] [place] [address] Nurse Practitioner Cardiovascular Disease 09/09/21 Rich Barrett MD [address] [place] 253745 Physician Ophthalmology 01/21/22 Neil Kent MD [address] [place] [address] 144805 Dermatology 02/24/22 [facility] [address] [place] [address] 503476 Assigned [facility] Pharmacist 04/07/22 Livan Sharif MD [address] [facility] [place] [address] Cardiovascular Disease 05/14/22 Catherine Cm MD [address] [facility] [place] [address] Cardiovascular Disease 07/21/22 Valery Veronica, PA-C [address] [place] [address] 797835 Physician Process Control Operator Dermatology 07/21/22 Brea Quinn APRN CHILD WELFARE ASSISTANT 500 [place], [place] 092435 Nurse Practitioner Dermatology 09/21/22 Brea Quinn APRN CHILD WELFARE ASSISTANT 6401 [place] [address] Assigned Surgical Provider 10/09/22 05/01/24 [place] [address] [address] Assigned Musculoskeletal Provider 10/09/22 05/01/24 Alfonso Renteria MD 5775 [facility] 200 [place] [address] Assigned Neuroscience Provider 04/02/23 09/29/24 Radha Lomeli APRN CHILD WELFARE ASSISTANT [address] [place] 7199700 [place] [address] Assigned Heart and Vascular Provider 05/28/23 Jelena David OD [address] [facility] [place] [address] Ophthalmology 06/15/23 Pao Joseph, RN Personal Advocate & Liaison (PAL) Nurse 08/01/23 11/07/23 Esha Grimm PA-C [address] [place] [address]-904983 Assigned PCP 07/16/23 Valery Veronica PA-C [address] [place] [address] Physician Process Control Operator Dermatology 09/19/23 Rey Tay MD [address] [place] [address] MD Gastroenterology 09/20/23 Rocky Zepeda DO [address] [place] [address] Physician Gastroenterology 09/20/23 Philip Dumont MD [address] [place] [address] Physician Ophthalmology 09/22/23 Meredith Carrera PA-C [address] [place] [address] Assigned Gastroenterology Provider 11/01/23 Neil Kent MD [address] [address] Dermatology 11/02/23 [place] [address] [place] [address] Neurological Surgery 12/26/23 Audrey Waite PA-C [address] [place] [address] 530925 Physician Process Control Operator Dermatology 02/28/24 Valery Veronica PA-C 432776 [place], [place] [address] Physician Process Control Operator Dermatology 04/10/24 Herminia Hatch MD [facility]5 [place], [place] 00834125 Assigned Rheumatology Provider 07/02/24 Jelena David OD 3305 [facility] [place] [address] Ophthalmology 08/30/24 [place] [address] [place] [address] Assigned Neuroscience Provider 09/30/24 Maru Man PA-C [address] [place] [address] Physician Process Control Operator Dermatology 10/03/24 Maru Man PA-C [address] [place] [address] Physician Process Control Operator Dermatology 10/22/24 Jelena David OD [facility]5 [facility] [place] [address] Assigned Surgical Provider 10/31/24 documented as of this encounter
--- OUTSIDE RECORDS SUMMARY | 2024-11-21 05:17 | XMS_ITS | Encounter Summary ---
Author Organization [place] Address [address] [place] [address] Care Team Providers Care Customer Services Manager Name Role Phone Diana Desir [facility] Unavailable [phone] Rain Galaviz PA-C Unavailable Tavia Wyatt MD Unavailable Erica Farrell APRN OUTSIDE MACHINIST APPRENTICE Unavailable Rich Barrett MD Unavailable [phone] Neil Kent MD Unavailable Diana Desir [facility] Unavailable Livan Sharif MD Unavailable Catherine Cm MD Unavailable + Valery Veronica PA-C Unavailable Brea Quinn PAINT PREPPER OUTSIDE MACHINIST APPRENTICE Unavailable Brea Quinn PAINT PREPPER OUTSIDE MACHINIST APPRENTICE Unavailable Jose Francisco Johnson MD Unavailable Alfonso Renteria MD Unavailable [phone] Esha Grimm PA-C Primary Care Provider Radha Lomeli APRN OUTSIDE MACHINIST APPRENTICE Unavailable Jelena David OD Unavailable Pao Joseph RN Unavailable Unavailable Esha Grimm Adam PA-C Unavailable [phone] Valery Veronica PA-C Unavailable [phone] Rey Tay MD Unavailable Rocky Zepeda DO Unavailable Philip Dumont MD Unavailable [phone] Meredith Carrera PA-C Unavailable [phone] Neil Kent MD Unavailable Juan Pablo Emmanuel MD Unavailable [phone] Audrey Waite PA-C Unavailable [phone] JeremíasValery damon PA-C Unavailable Herminia Hatch MD Unavailable Jelena David OD Unavailable Juan Pablo Emmanuel MD Unavailable [phone] Maru Man PA-C Unavailable Maru Man PA-C Unavailable [phone] Jelena David OD Unavailable Encounter Details Date Type Department Care Team (Late st Contact Info) Description 09/08/2023 MyC Medical Advice [facility] Gastroenterology Clinic [address] [place] [address] Marija Polanco, VJ Social History [...] exercise at this level? 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 Gender Identity Female 03/02/2021 5:45 PM CDT Sexual Orientation Straight 02/28/2020 12 :51 AM CDT documented as of this encounter Plan of Treatment Upcoming Encounters Date Type Department Care Team (Late st Contact Info) Description 11/21/2024 7:00 AM CDT Office Visit [facility] [address] [address] Maru Man PA-C [address] [address] 12/20/2024 2:30 PM CDT Office Visit [facility] [address] [place] [phone] Esha Grimm PA-C [address] [place] [phone] 04/16/2025 11:00 AM CDT Virtual Visit [facility] Gastroenterology Clinic [address] [place] [phone] Meredith Carrera PA-C [address] [place] [address] 984295 documented as of this encounter Visit Diagnoses [...] Total Score: 4 06/20/20 23 8:40 AM HARNESS MENDER documented as of this encounter Care Teams Customer Services Manager Relationship Specialty Start Date End Date Esha Grimm PA-C [address] [place] [phone] PCP - General Family Medicine 05/04/23 Diana Desir, [facility] [address] [facility] [place] [address] Pharmacist Pharmacist 04/17/21 Rain Galaviz PA-C [address] [place] [address] [place] [address] Physician Inspector Weights And Measures Dermatology 04/28/21 Tavia Wyatt MD [address] [place] [address] [address] [place] [address] Dermatology 07/14/21 Erica Farrell APRN OUTSIDE MACHINIST APPRENTICE [address] [place] [address] Nurse Practitioner Cardiovascular Disease 09/09/21 Rich Barrett MD [address] [place] [address]95 Physician Ophthalmology 01/21/22 Neil Kent MD [address] [place] [address] 222885 Dermatology 02/24/22 [facility] [address] [place] [address] 446896 Assigned [facility] Pharmacist 04/07/22 Livan Sharif MD [address] [place] [address] Cardiovascular Disease 05/14/22 Catherine Cm MD [address] [place] 00[address]25 Cardiovascular Disease 07/21/22 Valery Veronica, PA-C [address] [place] [address] 574135 Physician Inspector Weights And Measures Dermatology 07/21/22 Brea Quinn APRN OUTSIDE MACHINIST APPRENTICE 500 [place], [place] 928125 Nurse Practitioner Dermatology 09/21/22 Brea Quinn APRN OUTSIDE MACHINIST APPRENTICE 6401 [place] [address] Assigned Surgical Provider 10/09/22 05/01/24 [place] [address] [address] Assigned Musculoskeletal Provider 10/09/22 05/01/24 Alfonso Renteria MD 5775 [facility] 200 [place], [place] 812366 Assigned Neuroscience Provider 04/02/23 09/29/24 Radha Lomeli APRN OUTSIDE MACHINIST APPRENTICE [address] [place] 1324500 [place] [address] Assigned Heart and Vascular Provider 05/28/23 Jelena David OD [address] [place] [address] Ophthalmology 06/15/23 Pao Joseph, RN Personal Advocate & Liaison (PAL) Nurse 08/01/23 11/07/23 Esha Grimm PA-C [address] [place] [address] Assigned PCP 07/16/23 Valery Veronica PA-C [address] [place] [address] Physician Inspector Weights And Measures Dermatology 09/19/23 Rey Tay MD [address] [place] [address] MD Gastroenterology 09/20/23 Rocky Zepeda DO [address] [place] [address] Physician Gastroenterology 09/20/23 Philip Dumont MD [address] [place] [address] Physician Ophthalmology 09/22/23 Meredith Carrera PA-C [address] [place] [address] Assigned Gastroenterology Provider 11/01/23 Neil Kent MD [address] [address] Dermatology 11/02/23 [place] [address] [place] [address] Neurological Surgery 12/26/23 Audrey Waite PA-C [address] [place] [address] 584545 Physician Inspector Weights And Measures Dermatology 02/28/24 Valery Veronica PA-C [address]299 [address] [place] [address] Physician Inspector Weights And Measures Dermatology 04/10/24 Herminia Hatch MD [facility]5 [place], [place] 83450125 Assigned Rheumatology Provider 07/02/24 Jelena David OD 3305 [facility] [place] [address] Ophthalmology 08/30/24 [place] [address] [place] [address] Assigned Neuroscience Provider 09/30/24 Maru Man PA-C [address] [place] [address] Physician Inspector Weights And Measures Dermatology 10/03/24 Maru Man PA-C [address] [place] [address] Physician Inspector Weights And Measures Dermatology 10/22/24 Jelena David OD 3305 [facility] [place] [address] Assigned Surgical Provider 10/31/24 documented as of this encounter
--- OUTSIDE RECORDS SUMMARY | 2024-11-21 05:18 | XMS_ITS | Encounter Summary ---
Author Organization [place] Address [address] [place] [address] Care Team Providers Care Echo Technologist Name Role Phone Diana Desir Stanislav [facility] Unavailable [phone] Rain Galaviz PA-C Unavailable Tavia Wyatt MD Unavailable Erica Farrell APRN PEDIATRIC PATHOLOGIST Unavailable Rich Barrett MD Unavailable [phone] Neil Kent MD Unavailable ThangKendrickDiana Stanislav [facility] Unavailable [phone] Livan Sharif MD Unavailable Catherine Cm MD Unavailable + Valery Veronica-C Unavailable Brea Quinn MILL PLATFORM SUPERVISOR PEDIATRIC PATHOLOGIST Unavailable Esha Grimm PA-C Primary Care Provider Radha Lomeli APRN PEDIATRIC PATHOLOGIST Unavailable Jelena David OD Unavailable Esha Grimm PA-C Unavailable [phone] Valery Veronica PA-C Unavailable [phone] Rey Tay MD Unavailable DuaneRocky Unavailable Philip Dumont MD Unavailable [phone] Meredith Carrera PA-C Unavailable [phone] Neil Kent MD Unavailable Juan Pablo Emmanuel MD Unavailable Audrey Waite PA-C Unavailable [phone] Valery Veronica PA-C Unavailable Herminia Hatch MD Unavailable Jelena David OD Unavailable [phone] Juan Pablo Emmanuel MD Unavailable Maru Man-C Unavailable [phone] Reason for Visit * Reason Onset Date Comments Refill Request 10/18/2024 Triamcinolone Ac etonide 0.1% ointment Encounter Details Date Type Department Care Team (Late st Contact Info) Description 10/18/[address] [address] Brea Quinn APRN [address] [address] Refill Request (Triamcinolone Acetonide 0.1% ointment) Social [...] do you attend chur or nondenominational services? 1 to 4 times [...] exercise at this level? 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 Gender Identity Female 03/02/2021 5:45 [...] Man PA-C) 10/22/2024 Antonella Kidd RN BSN [facility] Dermatology [phone] * Telephone Encounter - Erum Mcginnis LPN [...] PM) Provider Visit with Esha Grimm PA-C [facility] [address] [place] [phone] Requested Prescriptions Pending Prescriptions Disp Refills [...] 11/21/2024 7:00 AM CDT Office Visit [address] [phone] Maru Man PA-C [address] [place] [address] 12/20/2024 2:30 PM CDT Office Visit [address] [address] Esha Grimm PA-C [address] [place] [phone] 04/16/2025 11:00 AM CDT Virtual Visit [facility] G[facility]ology [facility] [place] [address] [facility] [address] 4th [place] [phone] Meredith Carrera PA-C [address] [place] [address] documented as of this encounter Visit Diagnoses Diagnosis Psoriasis Other psoriasis documented in this encounter Additional Health Concerns Assessment Noted Time PHQ-9 Depression Total Score: 3 02/07/20 24 9:33 AM CDT documented as of this encounter Care Teams Echo Technologist Relationship Specialty Start Date End Date Esha Grimm PA-C [address] [place] [phone] PCP - General Family Medicine 05/04/23 Diana Desir, [facility] [address] [place] [address] Pharmacist Pharmacist 04/17/21 Rain Galaviz PA-C [address] [place] [address] [address] [place] [address] Physician Patient Day Coordinator Dermatology 04/28/21 Tavia Wyatt MD [address] [place] [address] [address] [place] [address] Dermatology 07/14/21 Erica Farrell APRN PEDIATRIC PATHOLOGIST [address] [place] 754615 Nurse Practitioner Cardiovascular Disease 09/09/21 Rich Barrett MD [address] [place] [address] Physician Ophthalmology 01/21/22 Neil Kent MD 500 [place], [place] 081445 Dermatology 02/24/22 Diana Desir, [facility] [address] [place], [place] 177196 Assigned MTM Pharmacist 04/07/22 Livan Sharif MD [address] [place] [address] Cardiovascular Disease 05/14/22 Catherine Cm MD [address] [place] [address] Cardiovascular Disease 07/21/22 Valery Veronica, PA-C 9[address] [place], [place] 218355 Physician Patient Day Coordinator Dermatology 07/21/22 Brea Quinn APRN PEDIATRIC PATHOLOGIST 500 [place] [address] Nurse Practitioner Dermatology 09/21/22 Radha Lomeli APRN PEDIATRIC PATHOLOGIST [address] [place] [address]15 Assigned Heart and Vascular Provider 05/28/23 Jelena David OD [address] [facility] [place] [address] MD Ophthalmology 06/15/23 Esha Grimm PA-C [address] [place] [address]078[address] Assigned PCP 07/16/23 Valery Veronica PA-C [address] [place] [address] 834425 Physician Patient Day Coordinator Dermatology 09/19/23 Rey Tay MD [address] [place] [address] MD Gastroenterology 09/20/23 Rocky Zepeda DO [address] [place] [address] 645465 Physician Gastroenterology 09/20/23 Philip Dumont MD [address] [place] [address] 239425 Physician Ophthalmology 09/22/23 Meredith Carrera PA-C [address] [place] [address] 013825 Assigned Gastroenterology Provider 11/01/23 Neil Kent MD [address] [address] Dermatology 11/02/23 [place] [address] [place], [place] 9[address] Neurological Surgery 12/26/23 Audrey Waite PA-C [address] [place] [address] 244445 Physician Patient Day Coordinator Dermatology 02/28/24 Valery Veronica PA-C [address] [place] [address] Physician Patient Day Coordinator Dermatology 04/10/24 Herminia Hatch MD [facility] [place], [place] 33022125 Assigned Rheumatology Provider 07/02/24 Jelena David OD [address] [facility] [place] [address] Ophthalmology 08/30/24 [place] [address] [place] 051217 Assigned Neuroscience Provider 09/30/24 Maru Man PA-C [address] [place] [address] Physician Patient Day Coordinator Dermatology 10/03/24 documented as of this encounter
--- OUTSIDE RECORDS SUMMARY | 2024-11-21 05:18 | XMS_ITS | Encounter Summary ---
Author Organization [place] Address [address] [place] [address] Care Team Providers Care Dye Line Operator Name Role Phone Diana Desir Stanislav [facility] Unavailable [phone] Rain Galaviz PA-C Unavailable Tavia Wyatt MD Unavailable Erica Farrell APRN DYE OPERATOR Unavailable Rich Barrett MD Unavailable [phone] Neil Kent MD Unavailable ThangKendrickDiana Stanislav [facility] Unavailable [phone] Livan Sharif MD Unavailable Catherine Cm MD Unavailable + Valery Veronica-C Unavailable Brea Quinn [employer] JOINTER DYE OPERATOR Unavailable Esha Grimm PA-C Primary Care Provider [phone] Radha Lomeli APRN DYE OPERATOR Unavailable Jelena David OD Unavailable Esha Grimm PA-C Unavailable [phone] Valery Veronica PA-C Unavailable [phone] Rey Tay MD Unavailable Duane Rocky Unavailable Philip Dumont MD Unavailable [phone] LoreMeredith mayers PA-C Unavailable [phone] Neil Kent MD Unavailable Juan Pablo Emmanuel MD Unavailable Audrey Waite PA-C Unavailable [phone] Valery Veronica PA-C Unavailable Herminia Hatch MD Unavailable Jelena David OD Unavailable Juan Pablo Emmanuel MD Unavailable [phone] Maru Man-C Unavailable [phone] Maru Man-C Unavailable [phone] Jelena David OD Unavailable [phone] Encounter Details Date Type Department Care Team (Late st Contact Info) Description 10/10/2024 [facility] Medical Advice [address] [place] [address] Carley Myles RN Social History [...] do you attend [facility] or holiness services? 1 to 4 times [...] Score 1 02/07/2024 [facility] - Occupational [...] exercise at this level? 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 Gender Identity Female 03/02/2021 5:45 PM CDT Sexual Orientation Straight 02/28/2020 12 :51 AM CDT documented as of this encounter Plan of Treatment Upcoming Encounters Date Type Department Care Team (Late st Contact Info) Description 11/21/2024 7:00 AM CDT Office Visit [address] [phone] Maru Man PA-C [address] 712700 12/20/2024 2:30 PM CDT Office Visit [facility] [address] [place] [phone] Esha Grimm PA-C [id number] [place] [phone] 04/16/2025 11:00 AM CDT Virtual Visit [facility] Gastroenterology Clinic [address] 4th [place] [phone] Meredith Carrera PA-C [address] [place] [address] documented as of this encounter Visit Diagnoses Not on filedocumented in this encounter Additional Health Concerns Infection Onset Date Last Indicated Resolved Time Rule Out COVID-19 11/20/2024 11/20/2024 Assessment Noted Time PHQ-9 Depression Total Score: 3 02/07/20 24 9:33 AM CDT documented as of this encounter Care Teams Dye Line Operator Relationship Specialty Start Date End Date Esha Grimm PA-C [address] [facility] [place] [address] PCP - General Family Medicine 05/04/23 Diana Desir, [facility] [address] [place], [place] [address] Pharmacist Pharmacist 04/17/21 Rain Galaviz PA-C [address] [place] [address] [address] [facility] [address] Physician Molecular Biology Professor Dermatology 04/28/21 Tavia Wyatt MD [address] [place] [address] [address] [place] [id number] Dermatology 07/14/21 Erica Farrell APRN DYE OPERATOR [address] [facility] [address] [place] 638695 Nurse Practitioner Cardiovascular Disease 09/09/21 Rich Barrett MD [address] [place] [address] Physician Ophthalmology 01/21/22 Neil Kent MD 500 [place], [place] 0[address]305 Dermatology 02/24/22 Diana Desir, [facility] [address] [place], [place] [address]386 Assigned MTM Pharmacist 04/07/22 Livan Sharif MD [address] [place], [place] 271435 Cardiovascular Disease 05/14/22 Catherine Cm MD [address] [place] 604055 Cardiovascular Disease 07/21/22 Valery Veronica, PA-C [address] [place], [place] 493335 Physician Molecular Biology Professor Dermatology 07/21/22 Brea Quinn APRN DYE OPERATOR 500 [place], [place] 641585 Nurse Practitioner Dermatology 09/21/22 Radha Lomeli APRN DYE OPERATOR [address] [place], [place] 228675 Assigned Heart and Vascular Provider 05/28/23 Tommy Davidistine SONJA Garcia [address] [facility] [place] [address] Ophthalmology 06/15/23 Esha Grimm PA-C [address] [place] [phone] Assigned PCP 07/16/23 Valery Veronica PA-C [address] [place] [address] 042365 Physician Molecular Biology Professor Dermatology 09/19/23 Rey Tay MD [address] [place] [address] 929145 MD Gastroenterology 09/20/23 Rocky Zepeda DO [address] [place] [address] 152105 Physician Gastroenterology 09/20/23 Philip Dumont MD 6 [place], [place] 946445 Physician Ophthalmology 09/22/23 Meredith Carrera PA-C [address] [place] [address] 097835 Assigned Gastroenterology Provider 11/01/23 Neil Kent MD [address] [place] [address] 391050 Dermatology 11/02/23 [place] [address] [place] [address] Neurological Surgery 12/26/23 Audrey Waite PA-C 500 [place] [address] Physician Molecular Biology Professor Dermatology 02/28/24 Valery Veronica PA-C [id number] [address] [place] [address] Physician Molecular Biology Professor Dermatology 04/10/24 Herminia Hatch MD [address] [place] [address] Assigned Rheumatology Provider 07/02/24 Jelena David OD [address] [place] [address] [place] [address] Ophthalmology 08/30/24 [place] [address] [place] [address] Assigned Neuroscience Provider 09/30/24 Maru Man PA-C [address] [place] [address] Physician Molecular Biology Professor Dermatology 10/03/24 Maru Man PA-C [address] [place] [address] Physician Molecular Biology Professor Dermatology 10/22/24 Jelena David OD [address] [place] [address] [place] [address] Assigned Surgical Provider 10/31/24 documented as of this encounter
--- OUTSIDE RECORDS SUMMARY | 2024-11-21 05:18 | XMS_ITS | Encounter Summary ---
Author Organization [place] Address [address] [place] [address] Care Team Providers Care Data Communications Analyst Name Role Phone Diana Desir Stanislav [facility] Unavailable Rain Galaviz PA-C Unavailable Tavia Wyatt MD Unavailable Erica Farrell APRN HONING MACHINE SET UP OPERATOR TOOL Unavailable Rich Barrett MD Unavailable [phone] Neil Kent MD Unavailable ThangKendrickDiana Stanislav [facility] Unavailable [phone] Livan Sharif MD Unavailable Catherine Cm MD Unavailable + Valery Veronica-C Unavailable Brea Quinn FIRE TECHNICIAN HONING MACHINE SET UP OPERATOR TOOL Unavailable Esha Grimm PA-C Primary Care Provider Radha Lomeli APRN HONING MACHINE SET UP OPERATOR TOOL Unavailable Jelena David OD Unavailable Esha Grimm PA-C Unavailable [phone] Valery Veronica PA-C Unavailable Rey Tay MD Unavailable Duane Rocky Unavailable Philip Dumont MD Unavailable [phone] Meredith Carrera-C Unavailable [phone] Neil Kent MD Unavailable Juan Pablo Emmanuel MD Unavailable Audrey Waite-C Unavailable [phone] Valery Veronica-C Unavailable Herminia Hatch MD Unavailable Jelena David OD Unavailable Juan Pablo Emmanuel MD Unavailable Maru ManC Unavailable [phone] Reason for Visit * Reason Comments Medication Refill Encounter Details Date Type Department Care Team (Late st Contact Info) Description 10/17/[address] [address] Esha Grimm PA-C [id number] [place] [phone] Medication Refill Social History Tobacco Use [...] PHQ-2 Score 1 02/07/2024 [facility] - Occupational Stress [...] exercise at this level? 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 Gender Identity Female 03/02/2021 5:45 PM CDT Sexual Orientation Straight 02/28/2020 12 :51 AM CDT documented as of this encounter Plan of Treatment Upcoming Encounters Date Type Department Care Team (Late st Contact Info) Description 11/21/2024 7:00 AM CDT Office Visit [facility] [address] [phone] Maru Man PA-C [address] [address] 12/20/2024 2:30 PM CDT Office Visit [facility] [address] [place] [address] Esha Grimm PA-C [address] [place] [phone] 04/16/2025 11:00 AM CDT Virtual Visit [facility] Gastroenterology Clinic [address] 4th [place] [phone] Meredith Carrera PA-C [address] [place] [address] documented as of this encounter Visit Diagnoses Diagnosis Anxiety Anxiety state, unspecified documented in this encounter Additional Health Concerns Assessment Noted Time PHQ-9 Depression Total Score: 3 02/07/20 24 9:33 AM CDT documented as of this encounter Care Teams Data Communications Analyst Relationship Specialty Start Date End Date Esha Grimm PA-C [address] [place] [phone] PCP - General Family Medicine 05/04/23 Diana Desir, [facility] [address] [place], [place] 6824[address] Pharmacist Pharmacist 04/17/21 Rain Galaviz PA-C [address] [place] [address] [address] [place] [address] Physician Paint Prep Technician Dermatology 04/28/21 Tavia Wyatt MD [address] [place] [address] [address] [place] [address] Dermatology 07/14/21 Erica Farrell APRN HONING MACHINE SET UP OPERATOR TOOL [address] [facility] [address] [place] [address]25 Nurse Practitioner Cardiovascular Disease 09/09/21 Rich Barrett MD [address] [place] [address]695 Physician Ophthalmology 01/21/22 Neil Kent MD 500 [place], [place] 129835 MD Dermatology 02/24/22 Diana Desir, [facility] [address] [place], [place] 447306 Assigned MTM Pharmacist 04/07/22 Livan Sharif MD [address] [place] 212315 Cardiovascular Disease 05/14/22 Catherine Cm MD [address] [place] [address]275 Cardiovascular Disease 07/21/22 Valery Veronica, PAUcheC 909 [place], [place] 347295 Physician Paint Prep Technician Dermatology 07/21/22 Brea Quinn APRN HONING MACHINE SET UP OPERATOR TOOL 500 [place], [place] 469565 Nurse Practitioner Dermatology 09/21/22 Radha Lomeli APRN HONING MACHINE SET UP OPERATOR TOOL [address] [place] 960675 Assigned Heart and Vascular Provider 05/28/23 Jelena David OD [address] [facility] [place] [address] MD Ophthalmology 06/15/23 Esha Grimm PA-C [address] [place] [address]-816583 Assigned PCP 07/16/23 Valery Veronica PA-C [address] [place] [address] Physician Paint Prep Technician Dermatology 09/19/23 Rey Tay MD [address] [place] [address] Gastroenterology 09/20/23 Rocky Zepeda DO [address] [place] [address] 301165 Physician Gastroenterology 09/20/23 Philip Dumont MD [address] [place] [address] Physician Ophthalmology 09/22/23 Meredith Carrera PA-C [address] [place] [address] Assigned Gastroenterology Provider 11/01/23 Neil Kent MD [address] [place] [address] 341360 Dermatology 11/02/23 [place] [address] [place] [address] Neurological Surgery 12/26/23 Audrey Waite PA-C 500 [place] [address] Physician Paint Prep Technician Dermatology 02/28/24 Valery Veronica PA-C [address] [place] [address] Physician Paint Prep Technician Dermatology 04/10/24 Herminia Hatch MD [address] [place], [place] 27395125 Assigned Rheumatology Provider 07/02/24 Jelena David OD [address] [facility] [place] [address] Ophthalmology 08/30/24 [place] [address] [place] [address] Assigned Neuroscience Provider 09/30/24 Maru Man PA-C [address] [address] Physician Paint Prep Technician Dermatology 10/03/24 documented as of this encounter
--- OUTSIDE RECORDS SUMMARY | 2024-11-21 05:18 | XMS_ITS | Encounter Summary ---
Author Organization [facility] Address [address] [place] [address] Care Team Providers Care Rad Tech Name Role Phone Diana Desir [facility] Unavailable Rain GalavizC Unavailable [phone] Tavia Wyatt MD Unavailable Erica Farrell APRN NURSING SPECIALIST Unavailable Rich Barrett MD Unavailable [phone] Neil Kent MD Unavailable DesirKendrickDiana Stanislav [facility] Unavailable [phone] Livan Sharif MD Unavailable Catherine Cm MD Unavailable + Valery Veronica-C Unavailable Brea Quinn OVERCOILER NURSING SPECIALIST Unavailable Alfonso Renteria MD Unavailable [phone] Esha GrimmC Primary Care Provider Radha Lomeli OVERCOILER NURSING SPECIALIST Unavailable Jelena David OD Unavailable Alfa, Esha M PA-C Unavailable [phone] Valery Veronica PA-C Unavailable Rey Tay MD Unavailable Rocky Zepeda DO Unavailable Philip Dumont MD Unavailable Meredith Carrera PA-C Unavailable [phone] Neil Kent MD Unavailable Juan Pablo Emmanuel MD Unavailable [phone] Audrey Waite PA-C Unavailable [phone] Valery Veronica PA-C Unavailable [phone] Herminia Hatch MD Unavailable Jelena David OD Unavailable Juan Pablo Emmanuel MD Unavailable [phone] Maru Man PA-C Unavailable Maru Man PA-C Unavailable Jelena David OD Unavailable [phone] Encounter Details Date Type Department Care Team (Late st Contact Info) Description 06/20/2024 [facility] Medical Advice [facility] Heart [address] [address] Carley Myles, RN Social History [...] Answer Date Recorded PHQ-2 Score 1 02/07/2024 [facility] - Occupational Stress Questionnaire [...] exercise at this level? 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 Gender Identity Female 03/02/2021 5:45 PM CDT Sexual Orientation Straight 02/28/2020 12 :51 AM CDT documented as of this encounter Plan of Treatment Upcoming Encounters Date Type Department Care Team (Late st Contact Info) Description 11/21/2024 7:00 AM CDT Office Visit [facility] [address] [phone] Maru Man PA-C [address] [address] 12/20/2024 2:30 PM CDT Office Visit [address] [address] Esha Grimm PA-C [address] [place] [phone] 04/16/2025 11:00 AM CDT Virtual Visit [facility]ology Clinic [address] 4th [place] [phone] Meredith Carrera PA-C [address] [place] [address] documented as of this encounter Visit Diagnoses Not on filedocumented in this encounter Additional Health Concerns Infection Onset Date Last Indicated Resolved Time Rule Out COVID-19 10/04/2024 10/04/2024 10/05/2024 9:42 AM CDT Rule Out COVID-19 11/20/2024 11/20/2024 Assessment Noted Time PHQ-9 Depression Total Score: 3 02/07/20 24 9:33 AM CDT documented as of this encounter Care Teams Rad Tech Relationship Specialty Start Date End Date Esha Grimm PA-C [address] [place] [phone] PCP - General Family Medicine 05/04/23 Diana Desir, [facility] [address] [place] [address] Pharmacist Pharmacist 04/17/21 Rain Galaviz PA-C [address] [place] [address] [address] [place] [address] Physician Transportation Maintenance Specialist Dermatology 04/28/21 Tavia Wyatt MD [address] [place] [address] [address] [place] [address] Dermatology 07/14/21 Erica Farrell APRN NURSING SPECIALIST [address] [place] [address] Nurse Practitioner Cardiovascular Disease 09/09/21 Rich Barrett MD [address] [place] 371315 Physician Ophthalmology 01/21/22 Neil Kent MD 500 [place], [place] 7[address]25 Dermatology 02/24/22 Diana Desir, [facility] [address] [place], [place] 024306 Assigned [facility] Pharmacist 04/07/22 Livan Sharif MD [address] [place] 392805 Cardiovascular Disease 05/14/22 Catherine Cm MD [address] [place] 547885 Cardiovascular Disease 07/21/22 Valery Veronica PAUcheC 909 [place], [place] 694225 Physician Transportation Maintenance Specialist Dermatology 07/21/22 Brea Quinn APRN NURSING SPECIALIST 500 [place], [place] 711485 Nurse Practitioner Dermatology 09/21/22 MyraAflonso garcia MD [address] [facility] [address] [place] [address] Assigned Neuroscience Provider 04/02/23 09/29/24 Armani Radha ARLENE Stovall NURSING SPECIALIST [address] [place] 490825 Assigned Heart and Vascular Provider 05/28/23 Jelena David OD [address] [facility] [address] [place] [id number] MD Ophthalmology 06/15/23 Esha Grimm PA-C [address] [place] [phone] Assigned PCP 07/16/23 Valery Veronica PA-C [address] [place] [address] 110975 Physician Transportation Maintenance Specialist Dermatology 09/19/23 Rey Tay MD [address] [place] [address] 543685 Gastroenterology 09/20/23 Rocky Zepeda DO [address] [place] [address] 667575 Physician Gastroenterology 09/20/23 Philip Dumont MD [address] [place] [address] 138245 Physician Ophthalmology 09/22/23 Meredith Carrera PA-C [address] [place] [address] Assigned Gastroenterology Provider 11/01/23 Neil Kent MD [address] [place] [address] Dermatology 11/02/23 [place] [address] [place] [address] Neurological Surgery 12/26/23 Audrey aWite PA-C [address] [place] [address] Physician Transportation Maintenance Specialist Dermatology 02/28/24 Valery Veronica PA-C [id number] [place] [address] Physician Transportation Maintenance Specialist Dermatology 04/10/24 Herminia Hatch MD [address] [place] [address] [phone] Assigned Rheumatology Provider 07/02/24 Jelena David OD [address] [place] [address] [place] [address] Ophthalmology 08/30/24 [place] [address] [place] [address] Assigned Neuroscience Provider 09/30/24 Maru Man PA-C [address] [place] [address] Physician Transportation Maintenance Specialist Dermatology 10/03/24 Maru Man PA-C [address] [place] [address] Physician Transportation Maintenance Specialist Dermatology 10/22/24 Jelena David OD [address] [facility] [place] [address] Assigned Surgical Provider 10/31/24 documented as of this encounter
--- OUTSIDE RECORDS SUMMARY | 2024-11-21 05:18 | XMS_ITS | Encounter Summary ---
Author Organization [facility] Address [address] [place] [address] Care Team Providers Care Plunger Scoop Operator Name Role Phone Diana Desir [facility] Unavailable Rain GalavizC Unavailable [phone] Tavia Wyatt MD Unavailable Erica Farrell APRN MEN'S AND BOYS' CLOTHING SALESPERSON Unavailable Rich Barrett MD Unavailable [phone] Neil Kent MD Unavailable DesirKendrickDiana Stanislav [facility] Unavailable [phone] Livan Sharif MD Unavailable Catherine Cm MD Unavailable + Valery Veronica-C Unavailable Brea Quinn PATIENT FINANCIAL COORDINATOR M[employer]'S AND BOYS' CLOTHING SALESPERSON Unavailable Alfonso Renteria MD Unavailable [phone] Esha GrimmC Primary Care Provider Radha Lomeli PATIENT FINANCIAL COORDINATOR MEN'S AND BOYS' CLOTHING SALESPERSON Unavailable Jelena David OD Unavailable Alfa, Esha M PA-C Unavailable [phone] Valery Veronica PA-C Unavailable Rey Tya MD Unavailable Rocky Zepeda DO Unavailable Philip Dumont MD Unavailable Meredith Carrera PA-C Unavailable [phone] Neil Kent MD Unavailable Juan Pablo Emmanuel MD Unavailable [phone] Audrey Waite PA-C Unavailable [phone] Valery Veronica PA-C Unavailable Herminia Hatch MD Unavailable Jelena David OD Unavailable Juan Pablo Emmanuel MD Unavailable Maru Man PA-C Unavailable Maru Man PA-C Unavailable Jelena David OD Unavailable Encounter Details Date Type Department Care Team (Late st Contact Info) Description 06/21/2024 [facility] [address] [address] Antonella Eldridge RN Social History [...] Answer Date Recorded PHQ-2 Score 1 02/07/2024 [facility] - Occupational Stress [...] exercise at this level? 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 Gastroenterology Clinic [address] 4th [place] [phone] Meredith Carrera PA-C [address] [place] [address] documented as of this encounter Visit Diagnoses Not on filedocumented in this encounter Additional Health Concerns Infection Onset Date Last Indicated Resolved Time Rule Out COVID-19 10/04/2024 10/04/2024 10/05/2024 9:42 AM CDT Rule Out COVID-19 11/20/2024 11/20/2024 Assessment Noted Time PHQ-9 Depression Total Score: 3 02/07/20 24 9:33 AM CDT documented as of this encounter Care Teams Plunger Scoop Operator Relationship Specialty Start Date End Date Esha Grimm PA-C [address] [place] [address] PCP - General Family Medicine 05/04/23 Diana Desir, [facility] [address] [place] [address] Pharmacist Pharmacist 04/17/21 Rain Galaviz PA-C [address] [place] [address] [place] [address] Physician Staff Nurse Anesthetist Dermatology 04/28/21 Tavia Wyatt MD [address] [place] [address] [place] [address] Dermatology 07/14/21 Erica Farrell APRN MEN'S AND BOYS' CLOTHING SALESPERSON [address] [place] [address] Nurse Practitioner Cardiovascular Disease 09/09/21 Rich Barrett MD [address] [place], [place] 746085 Physician Ophthalmology 01/21/22 Neil Kent MD 500 [place], [place] 861235 Dermatology 02/24/22 Diana Desir, [facility] 30[address] [place], [place] 764026 Assigned [place] Pharmacist 04/07/22 Livan Sharif MD [address] [place] 227[address] Cardiovascular Disease 05/14/22 Catherine Cm MD [address] [place] 285365 Cardiovascular Disease 07/21/22 Valery Veronica, PA-C 909 [place], [place] 594525 Physician Staff Nurse Anesthetist Dermatology 07/21/22 Brea Quinn APRN M[employer]'S AND BOYS' CLOTHING SALESPERSON 500 [place], [place] 469005 Nurse Practitioner Dermatology 09/21/22 Alfonso Renteria MD [address] [facility] [address] [place] [address] Assigned Neuroscience Provider 04/02/23 09/29/24 Armani Radha ARLENE Stovall MEN'S AND BOYS' CLOTHING SALESPERSON [address] [place] [address] Assigned Heart and Vascular Provider 05/28/23 Jelena David OD [address] [facility] [place] [address] MD Ophthalmology 06/15/23 Esha Grimm PA-C [address] [place] [phone] Assigned PCP 07/16/23 Valery Veronica PA-C [address] [place] [address] 701135 Physician Staff Nurse Anesthetist Dermatology 09/19/23 Rey Tay MD [address] [place] [address] 641895 Gastroenterology 09/20/23 Rocky Zepeda DO [address] [place] [address] Physician Gastroenterology 09/20/23 Philip Dumont MD [address] [place] [address] Physician Ophthalmology 09/22/23 Meredith Carrera PA-C [address] [place] [address] Assigned Gastroenterology Provider 11/01/23 Neil Kent MD [address] [place] [address] Dermatology 11/02/23 [place] [address] [place] [address] Neurological Surgery 12/26/23 Audrey Waite PA-C [address] [place] [address] Physician Staff Nurse Anesthetist Dermatology 02/28/24 Valery Veronica PA-C 15[address]76 [address] [place] [address] Physician Staff Nurse Anesthetist Dermatology 04/10/24 Herminia Hatch MD [address] [place] [address] [phone] Assigned Rheumatology Provider 07/02/24 Jelena David OD [address] [place] [address] [place] [address] Ophthalmology 08/30/24 [place] [address] [place] [address] Assigned Neuroscience Provider 09/30/24 Maru Man PA-C [address] [place] [address] Physician Staff Nurse Anesthetist Dermatology 10/03/24 Maru Man PA-C [address] [place] [address] Physician Staff Nurse Anesthetist Dermatology 10/22/24 [place] [address] [place] [address] [place] [address] Assigned Surgical Provider 10/31/24 documented as of this encounter
--- OUTSIDE RECORDS SUMMARY | 2024-11-21 05:18 | XMS_ITS | Encounter Summary ---
Author Organization [facility] Address [address] [place] [address] Care Team Providers Care Media Supervisor Name Role Phone Diana Desir [facility] Unavailable [phone] Rain Galaviz PA-C Unavailable Tavia Wyatt MD Unavailable Erica Farrell APRN HYDROELECTRIC MECHANIC Unavailable Rich Barrett MD Unavailable [phone] Neil Kent MD Unavailable Diana Desir [facility] Unavailable Livan Sharif MD Unavailable Catherine Cm MD Unavailable + Valery Veronica PA-C Unavailable Brea Quinn TIRE BLADDER MAKER HYDROELECTRIC MECHANIC Unavailable [phone] Brea Quinn TIRE BLADDER MAKER HYDROELECTRIC MECHANIC Unavailable Jose Francisco Johnson MD Unavailable Alfonso Renteria MD Unavailable [phone] Esha Grimm PA-C Primary Care Provider Radha Lomeli APRN HYDROELECTRIC MECHANIC Unavailable Jelena David OD Unavailable [phone] Pao Joseph RN Unavailable Unavailable Esha Grimm PA-C Unavailable [phone] Valery Veronica PA-C Unavailable Rey Tay MD Unavailable Rocky Zepeda DO Unavailable Philip Dumont MD Unavailable Meredith Carrera PA-C Unavailable Neil Kent MD Unavailable Juan Pablo Emmanuel MD Unavailable Audrey Waite PA-C Unavailable JeremíasValery damon PA-C Unavailable Herminia Hatch MD Unavailable Jelena David OD Unavailable Juan Pablo Emmanuel MD Unavailable [phone] Maru Man PA-C Unavailable Maru Man PA-C Unavailable Jelena David OD Unavailable [phone] Reason for Visit * Reason Onset Date Comments Outreach 08/01/2023 Encounter Details Date Type Department Care Team (Late st Contact Info) Description 08/01/2023 MyC Medical Advice [facility] [address] [place] [address] Esha Grimm PA-C [address] [place] [address] Outreach Social History Tobacco Use [...] week 03/10/2023 How often do you attend [facility] or gnostic[facility] services? 1 to 4 times [...] Answer Date Recorded PHQ-2 Score 0 06/20/2023 [facility] [...] exercise at this level? 30 min 03/10/2023 [place] Depression Scale Answer Date Recorded [place] [...] PM CDT Legal Sex Female 4:13 AM THUMB SEWER Gender Identity Female 03/02/2021 5:45 PM CDT Sexual Orientation Straight 02/28/2020 12 :51 AM CDT documented as of this encounter Miscellaneous Notes * Telephone Encounter - Pao Joseph RN - 08/01/2023 2:31 PM CST Esha Grimm PA-C- ANGEL LUIS. See pt's Mychart messages. Routed to PCP Pao Marcos RN PAL (Patient Advocate Liaison) [facility] B SEWER documented in this encounter Plan of Treatment Upcoming Encounters Date Type Department Care Team (Late st Contact Info) Description 11/21/2024 7:00 AM CDT Office Visit [facility] [address] [phone] Maru Man PA-C [address] [phone] 12/20/2024 2:30 PM CDT Office Visit [address] [address] Esha Grimm PA-C [address] [place] [address] 04/16/2025 11:00 AM CDT Virtual Visit [facility] Gastroenterology Clinic [address] [place] [phone] Meredith Carrera PA-C [address] [place] [address] 840785 documented as of this encounter Visit Diagnoses [...] Total Score: 4 06/20/20 23 8:40 AM THUMB SEWER documented as of this encounter Care Teams Media Supervisor Relationship Specialty Start Date End Date Esha Grimm PA-C [address] [place] [address] PCP - General Family Medicine 05/04/23 Diana Desir, [facility] [address] [place] [address] Pharmacist Pharmacist 04/17/21 Rain Galaviz PA-C [address] [place] [address] [address] [place] [address] Physician Spreader Dermatology 04/28/21 Tavia Wyatt MD [address] [place] [address] [address] [facility] [place] [address] Dermatology 07/14/21 Erica Farrell APRN HYDROELECTRIC MECHANIC [address] [place] [address] Nurse Practitioner Cardiovascular Disease 09/09/21 Rich Barrett MD [address] [place] [address] Physician Ophthalmology 01/21/22 Neil Kent MD 500 [place], [place] 821305 Dermatology 02/24/22 Diana Desir, [facility] [address] [place] [address] Assigned MTM Pharmacist 04/07/22 Livan Sharif MD [address] [facility] [address] [place] [address] Cardiovascular Disease 05/14/22 Catherine Cm MD [address] [facility] [address] [place] [address] Cardiovascular Disease 07/21/22 Valery Veronica, PAUcheC [address] [place] [address] 594795 Physician Spreader Dermatology 07/21/22 Brea Quinn APRN HYDROELECTRIC MECHANIC [address] [place] [address] 406685 Nurse Practitioner Dermatology 09/21/22 Brea Quinn APRN HYDROELECTRIC MECHANIC [address] [place], [place] 605132 Assigned Surgical Provider 10/09/22 05/01/24 [place] [address] [place] [facility] [address] [place] [address] Assigned Musculoskeletal Provider 10/09/22 05/01/24 Alfonso Renteria MD [address] [facility] 200 [place], [place] [phone] Assigned Neuroscience Provider 04/02/23 09/29/24 Radha Lomeli APRN HYDROELECTRIC MECHANIC [address] [place], [place] 363685 Assigned Heart and Vascular Provider 05/28/23 Jelena David OD [address] [facility] [place] [address] MD Ophthalmology 06/15/23 Pao Joseph, RN Personal Advocate & Liaison (PAL) Nurse 08/01/23 11/07/23 Esha Grimm PA-C [address] [place] [phone] Assigned PCP 07/16/23 Valery Veronica PA-C [address] [place] [address] 359845 Physician Spreader Dermatology 09/19/23 Rey Tay MD [address] [place] [address] MD Gastroenterology 09/20/23 Rocky Zepeda DO [address] [place] [address] 301435 Physician Gastroenterology 09/20/23 Philip Dumont MD [address] [place] [address] 141075 Physician Ophthalmology 09/22/23 Meredith Carrera PA-C [address] [place] [address] 506405 Assigned Gastroenterology Provider 11/01/23 Neil Kent MD [address] 896140 Dermatology 11/02/23 [place] [address] [place] [address] Neurological Surgery 12/26/23 Audrey Waite PA-C 500 [place] [address] Physician Spreader Dermatology 02/28/24 Valery Veronica PA-C [address] [place] [address] Physician Spreader Dermatology 04/10/24 Herminia Hatch MD [address] [place] [address] [phone] Assigned Rheumatology Provider 07/02/24 Jelena David, SONJA [address] [place] [address] [place] [address] Ophthalmology 08/30/24 [place] [address] [place] [address] Assigned Neuroscience Provider 09/30/24 Maru Man PA-C [address] [place] [address] Physician Spreader Dermatology 10/03/24 Maru Man PA-C [address] [place] [address] Physician Spreader Dermatology 10/22/24 Jelena David, SONJA [address] [facility] [place] [address] Assigned Surgical Provider 10/31/24 documented as of this encounter
--- OUTSIDE RECORDS SUMMARY | 2024-11-21 05:18 | XMS_ITS | Encounter Summary ---
Author Organization [place] Address [address] [place] [address] Care Team Providers Care Wire Welder Name Role Phone Diana Desir Stanislav [facility] Unavailable Rain Galaviz PA-C Unavailable Tavia Wyatt MD Unavailable Erica Farrell APRN RESEARCH PROGRAMMER Unavailable Rich Barrett MD Unavailable [phone] Neil Kent MD Unavailable ThangKendrickDiana Stanislav [facility] Unavailable [phone] Livan Sharif MD Unavailable Catherine Cm MD Unavailable + Valery Veronica-C Unavailable [phone] Brea Quinn POST ANESTHESIA NURSE RESEARCH PROGRAMMER Unavailable Esha Grimm PA-C Primary Care Provider Radha Lomeli APRN RESEARCH PROGRAMMER Unavailable Jelena David OD Unavailable Esha Grimm PA-C Unavailable [phone] Valery Veronica PA-C Unavailable Rey Tay MD Unavailable Duane Rockyanne [facility] Unavailable Philip Dumont MD Unavailable [phone] Meredith Carrera PA-C Unavailable Neil Kent MD Unavailable Juan Pablo Emmanuel MD Unavailable Audrey Waite PA-C Unavailable [phone] Valery Veronica PA-C Unavailable Herminia Hatch MD Unavailable Jelena David OD Unavailable Juan Pablo Emmanuel MD Unavailable Maru Man-C Unavailable Maru Man-C Unavailable Jelena David OD Unavailable Encounter Details Date Type Department Care Team (Late st Contact Info) Description 10/11/2024 [facility] [address] [address] Diana Desir, [facility] [address] [place] [address] Social History Tobacco Use Types Packs/Day Years [...] Answer Date Recorded PHQ-2 Score 1 02/07/2024 [facility] - [...] PM CDT Legal Sex Female 4:13 AM 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 Gender Identity Female 03/02/2021 5:45 PM CDT Sexual Orientation Straight 02/28/2020 12 :51 AM CDT documented as of this encounter Plan of Treatment Upcoming Encounters Date Type Department Care Team (Late st Contact Info) Description 11/21/2024 7:00 AM CDT Office Visit [facility] [address] [address] Maru Man PA-C [address] [address] 12/20/2024 2:30 PM CDT Office Visit [address] [phone] Esha Grimm PA-C [address] [place] [address] 04/16/2025 11:00 AM CDT Virtual Visit [facility] [address] 4th [place] [phone] Meredith Carrera PA-C [address] [place] [address] documented as of this encounter Visit Diagnoses Not on filedocumented in this encounter Additional Health Concerns Infection Onset Date Last Indicated Resolved Time Rule Out COVID-19 11/20/2024 11/20/2024 Assessment Noted Time PHQ-9 Depression Total Score: 3 02/07/20 24 9:33 AM CDT documented as of this encounter Care Teams Wire Welder Relationship Specialty Start Date End Date Esha Grimm PA-C [address] [place] [address] PCP - General Family Medicine 05/04/23 Diana Desir, [facility] [address] [place] [address] Pharmacist Pharmacist 04/17/21 Rain Galaviz PA-C [address] [place] [address] [address] [place] [address] Physician Char Belt Operator Dermatology 04/28/21 Tavia Wyatt MD [address] [place] [address] ENMA KNUTSON [address] Dermatology 07/14/21 Erica Farrell, POST ANESTHESIA NURSE RESEARCH PROGRAMMER [address] [place], [place] [address] Nurse Practitioner Cardiovascular Disease 09/09/21 Rich Barrett MD [address] [place], [place] 36[address]85 Physician Ophthalmology 01/21/22 Neil Kent MD [address] [place], [place] 607245 Dermatology 02/24/22 Diana Desir, [facility] [address] [place], [place] 8[address]336 Assigned [facility] Pharmacist 04/07/22 Livan Sharif MD [address] [place], [place] 86[address] Cardiovascular Disease 05/14/22 Catherine Cm MD [address] [place], [place] [address]195 Cardiovascular Disease 07/21/22 Valery Veronica, PA-C [address] [place] [address]605 Physician Char Belt Operator Dermatology 07/21/22 Brea Quinn APRN RESEARCH PROGRAMMER 500 [place], [place] 310065 Nurse Practitioner Dermatology 09/21/22 Radha Lomeli APRN RESEARCH PROGRAMMER [address] [place] [address] Assigned Heart and Vascular Provider 05/28/23 Jelena David OD [address] [place] [address] MD Ophthalmology 06/15/23 Esha Grimm PA-C [address] [place] [address] Assigned PCP 07/16/23 Valery Veronica PA-C [address] [place] [address] 674815 Physician Char Belt Operator Dermatology 09/19/23 Rey Tay MD [address] [place] [address] 325345 Gastroenterology 09/20/23 Rocky Zepeda DO [address] [place] [address] 548695 Physician Gastroenterology 09/20/23 Philip Dumont MD [address] [place] [address] 280715 Physician Ophthalmology 09/22/23 Meredith Carrera PA-C [address] [place] [address] 443785 Assigned Gastroenterology Provider 11/01/23 Neil eKnt MD [address] 449[address] Dermatology 11/02/23 [place] [address] [place] [address] Neurological Surgery 12/26/23 Audrey Waite PA-C 500 [place] [address] Physician Char Belt Operator Dermatology 02/28/24 Valery Veronica PA-C 387054 [address] [address] Physician Char Belt Operator Dermatology 04/10/24 Herminia Hatch MD [address] [place] [address] [id number] Assigned Rheumatology Provider 07/02/24 Jelena David, SONJA [address] [place] [address] [place] [address] Ophthalmology 08/30/24 [place] [address] [place] [address] Assigned Neuroscience Provider 09/30/24 Maru Man PA-C [address] [place] [address] Physician Char Belt Operator Dermatology 10/03/24 Maru Man PA-C [address] [place] [address] Physician Char Belt Operator Dermatology 10/22/24 Jelena David OD [address] [place] [address] Assigned Surgical Provider 10/31/24 documented as of this encounter
--- OUTSIDE RECORDS SUMMARY | 2024-11-21 05:18 | XMS_ITS | Encounter Summary ---
Author Organization [place] Address [address] [place] [address] Care Team Providers Care Reservation Clerk Name Role Phone Diana Desir [facility] Unavailable Rain Galaviz PA-C Unavailable [phone] Tavia Wyatt MD Unavailable Erica Farrell APRN LOADER OPERATOR Unavailable Rich Barrett MD Unavailable [phone] Neil Kent MD Unavailable Diana Desir [facility] Unavailable [phone] Livan Sharif MD Unavailable Catherine Cm MD Unavailable + Valery Veronica PA-C Unavailable Brea Quinn ORDER ANALYST LOADER OPERATOR Unavailable Brea Quinn ORDER ANALYST LOADER OPERATOR Unavailable [phone] Jose Francisco Johnson MD Unavailable Alfonso Renteria MD Unavailable [phone] Esha Grimm PA-C Primary Care Provider [phone] Radha Lomeli APRN LOADER OPERATOR Unavailable Jelena David OD Unavailable Pao Joseph RN Unavailable Unavailable Esha Grimm PA-C Unavailable [phone] Valery Veronica PA-C Unavailable Rey Tay MD Unavailable Rocky Zepeda DO Unavailable Philip Dumont MD Unavailable Meredith Carrera PA-C Unavailable Neil Kent MD Unavailable Juan Pablo Emmanuel MD Unavailable Audrey Waite PA-C Unavailable Valery Veronica PA-C Unavailable Herminia Hatch MD Unavailable Jelena David OD Unavailable [phone] Juan Pablo Emmanuel MD Unavailable Maru Man-C Unavailable Maru Man PA-C Unavailable Reason for Visit * Reason Onset Date Comments Call Back 08/01/2023 Encounter Details Date Type Department Care Team (Late st Contact Info) Description 08/01/2023 Telephone [facility] [address] [place] [address] Esha Grimm PA-C [address] [place] [address] Call Back Social History Tobacco [...] 1 10/24/2024 [facility] Occupat ional [...] exercise at this level? 20 min 05/07/2024 [place] Depression Scale Answer Date Recorded [place] Depression Score 5 01/14/2021 Last EPDS [...] Legal Sex Female 4:13 AM QUALITY ASSURANCE SUPERVISOR CHASSIS Gender Identity Female 03/02/2021 5:45 PM CDT [...] Grimm PA-C on 08/02/2023 at 7:49 AM ITY ASSURANCE SUPERVISOR CHASSIS * Telephone Encounter - Debbie Shahid - [...] we send this information to you in [place] or would you prefer to receive a phone call?: No preference Okay to leave a detailed message?: Yes at Home number on file [phone] (home) ITY ASSURANCE SUPERVISOR CHASSIS documented in this encounter Plan of Treatment Upcoming Encounters Date Type Department Care Team (Late st Contact Info) Description 11/21/2024 7:00 AM CDT Office Visit [facility] [address] [phone] Maru Man PA-C [address] [place] [address] 12/20/2024 2:30 PM CDT Office Visit [facility] [address] [place] [address] Esha Grimm PA-C [address] [place] [address] 04/16/2025 11:00 AM CDT Virtual Visit [facility] G[facility]ology Clinic [address] [place] [address] Meredith Carrera PA-C [address] [place] [address] documented as of this encounter Visit [...] 4 06/20/20 23 8:40 AM QUALITY ASSURANCE SUPERVISOR CHASSIS documented as of this encounter Care Teams Reservation Clerk Relationship Specialty Start Date End Date Esha Grimm PA-C [address] [place] [address] PCP - General Family Medicine 05/04/23 Diana Desir, [facility] [address] [place] [address] Pharmacist Pharmacist 04/17/21 Rain Galaviz PA-C [address] [place] [address] [address] ARRIOL[address] PRAENMA BAER [address] Physician Mud Jack Operator Dermatology 04/28/21 Tavia Wyatt MD [address] [place] [address] [address] RA[address] Lara [place]ARC[place] [address] Dermatology 07/14/21 Erica Farrell APRN LOADER OPERATOR [address] [place] [address]85 Nurse Practitioner Cardiovascular Disease 09/09/21 Rich Barrett MD [address] ENMA GUERRERO 602155 Physician Ophthalmology 01/21/22 Neil Kent MD [address] [place] [address] 047855 Dermatology 02/24/22 [facility] [address] [place] [address] 121026 Assigned [facility] Pharmacist 04/07/22 Livan Sharif MD [address] [place] [address]35 Cardiovascular Disease 05/14/22 Catherine Cm MD [address] [place] 093375 Cardiovascular Disease 07/21/22 Valery Veronica, PA-C [address] [place] [address] 477655 Physician Mud Jack Operator Dermatology 07/21/22 Brea Quinn APRN LOADER OPERATOR 500 [place] [address] Nurse Practitioner Dermatology 09/21/22 Brea Quinn APRN LOADER OPERATOR [address]01 [place] [address] Assigned Surgical Provider 10/09/22 05/01/24 [place] [address] [address] Assigned Musculoskeletal Provider 10/09/22 05/01/24 Alfonso Renteria MD [address]75 [facility] 200 [place], [place] [address]2016 Assigned Neuroscience Provider 04/02/23 09/29/24 Radha Lomeli APRN LOADER OPERATOR [address] [facility] [address] [place] [address] Assigned Heart and Vascular Provider 05/28/23 Jelena David OD [address] [facility] [address] Ophthalmology 06/15/23 Pao Joseph, VJ Personal Advocate & Liaison (PAL) Nurse 08/01/23 11/07/23 Esha Grimm PA-C [address] [place] [address] Assigned PCP 07/16/23 Valery Veronica PA-C [address] [place] [address] Physician Mud Jack Operator Dermatology 09/19/23 Rey Tay MD [address] [place] [address] MD Gastroenterology 09/20/23 Rocky Zepeda DO [address] [place] [address] Physician Gastroenterology 09/20/23 Philip Dumont MD [address] [place] [address] Physician Ophthalmology 09/22/23 Meredith Carrera PA-C [address] [place] [address] Assigned Gastroenterology Provider 11/01/23 Neil Kent MD [address] [address] Dermatology 11/02/23 [place] [address] [address] Neurological Surgery 12/26/23 Audrey Waite PA-C [address] [place] [address] Physician Mud Jack Operator Dermatology 02/28/24 Valery Veronica PA-C 274456 [address] [place] [address] Physician Mud Jack Operator Dermatology 04/10/24 Herminia Hatch MD [facility]5 [place], [place] 00664[address] Assigned Rheumatology Provider 07/02/24 Jelena David OD [address] [facility] [address] Ophthalmology 08/30/24 [place] [address] [place] [address] Assigned Neuroscience Provider 09/30/24 Maru Man PA-C [address] [place] [address] Physician Mud Jack Operator Dermatology 10/03/24 Maru Man PA-C [address] [place] [address] Physician Mud Jack Operator Dermatology 10/22/24 documented as of this encounter
--- OUTSIDE RECORDS SUMMARY | 2024-11-21 05:18 | XMS_ITS | Encounter Summary ---
Author Organization [place] Address [address] [place] [address] Care Team Providers Care Bacteriologist Fishery Name Role Phone Diana Desir [facility] Unavailable [phone] Rain Galaviz PA-C Unavailable Tavia Wyatt MD Unavailable Erica Farrell APRN SOLAR SALES MANAGER Unavailable Rich Barrett MD Unavailable [phone] Neil Kent MD Unavailable Diana Desir [facility] Unavailable Livan Sharif MD Unavailable Catherine Cm MD Unavailable + Valery Veronica PA-C Unavailable [phone] Brea Quinn SPRAY DYER SOLAR SALES MANAGER Unavailable [phone] Brea Quinn SPRAY DYER SOLAR SALES MANAGER Unavailable [phone] Jose Francisco Johnson MD Unavailable Alfonso Renteria MD Unavailable [phone] Esha Grimm PA-C Primary Care Provider [phone] Radha Lomeli APRN SOLAR SALES MANAGER Unavailable Jelena David OD Unavailable Pao Joseph RN Unavailable Unavailable AlfaJesusEsha M PA-C Unavailable [phone] Valery Veronica PA-C Unavailable Rey Tay MD Unavailable Rocky Zepeda DO Unavailable Philip Dumont MD Unavailable Meredith Carrera PA-C Unavailable Neil Kent MD Unavailable Juan Pablo Emmanuel MD Unavailable Audrey Waite PA-C Unavailable JeremíasValery damon PA-C Unavailable Herminia Hatch MD Unavailable Jelena David OD Unavailable [phone] Juan Pablo Emmanuel MD Unavailable Maru Man PA-C Unavailable Maru Man PA-C Unavailable Jelena David OD Unavailable Encounter Details Date Type Department Care Team (Late st Contact Info) Description 08/04/2023 [facility] Medical Advice [address] [address] Diana Desir, [facility] [address] [place] [address] Social History Tobacco Use Types [...] Score 0 06/20/2023 [facility] Questionnaire Answer Date [...] CDT Legal Sex Female 4:13 AM MEDICAL EDITOR Gender Identity Female 03/02/2021 5:45 PM CDT Sexual Orientation Straight 02/28/2020 12 :51 AM CDT documented as of this encounter Plan of Treatment Upcoming Encounters Date Type Department Care Team (Late st Contact Info) Description 11/21/2024 7:00 AM CDT Office Visit [facility] [address] [phone] Maur Man PA-C [address] [address] 12/20/2024 2:30 PM CDT Office Visit [facility] [address] [place] [address] Esha Grimm PA-C [address] [place] [address] 04/16/2025 11:00 AM CDT Virtual Visit [facility] [address] 4th [place] [phone] Meredith Carrera PA-C [address] [place] [address] 555205 documented as of this encounter Visit Diagnoses [...] Score: 4 06/20/20 23 8:40 AM MEDICAL EDITOR documented as of this encounter Care Teams Bacteriologist Fishery Relationship Specialty Start Date End Date Esha Grimm PA-C [address] [place] [address] PCP - General Family Medicine 05/04/23 Diana Desir, [facility] [address] [place] [address] Pharmacist Pharmacist 04/17/21 Rain Galaviz PA-C [address] [place] [address] [address] [place] [address] Physician Reclamation Furnace Operator Dermatology 04/28/21 Tavia Wyatt MD [address] [place] [address] [address] [place] [address] Dermatology 07/14/21 Erica Farrell APRN SOLAR SALES MANAGER [address] [place] [address] Nurse Practitioner Cardiovascular Disease 09/09/21 Rich Barrett MD [address] [place] [address] Physician Ophthalmology 01/21/22 Neil Kent MD 500 [place], [place] 216145 Dermatology 02/24/22 Diana Desir, [facility] [address] [place], [place] 8425[address] Assigned MTM Pharmacist 04/07/22 Livan Sharif MD [address] [place] [address] Cardiovascular Disease 05/14/22 Catherine Cm MD [address] [place] [address] Cardiovascular Disease 07/21/22 Valery Veronica PA-C 909 [place] [address] Physician Reclamation Furnace Operator Dermatology 07/21/22 Brea Quinn APRN SOLAR SALES MANAGER 500 [place] [address] Nurse Practitioner Dermatology 09/21/22 Brea Quinn APRN SOLAR SALES MANAGER [address] [place] [address] Assigned Surgical Provider 10/09/22 05/01/24 [place] [address] [place] [address] Assigned Musculoskeletal Provider 10/09/22 05/01/24 Alfonso Renteria MD 5775 [facility] 200 [place], [place] 73948416 Assigned Neuroscience Provider 04/02/23 09/29/24 Radha Lomeli APRN SOLAR SALES MANAGER [address] [facility] [address] [place] [address] Assigned Heart and Vascular Provider 05/28/23 Jelena David OD [address] [place] [address] Ophthalmology 06/15/23 Pao Joseph, VJ Personal Advocate & Liaison (PAL) Nurse 08/01/23 11/07/23 Esha Grimm PA-C [address] [place] [phone] Assigned PCP 07/16/23 Valery Veronica PA-C 9 [place] [address] Physician Reclamation Furnace Operator Dermatology 09/19/23 Rey Tay MD [address] [place] [address] 586565 MD Gastroenterology 09/20/23 Rocky Zepeda DO [address] [place] [address] 309345 Physician Gastroenterology 09/20/23 Philip Dumont MD [address] [place] [address] 681895 Physician Ophthalmology 09/22/23 Meredith Carrera PA-C [address] [place] [address] 429665 Assigned Gastroenterology Provider 11/01/23 Neil Kent MD [address] 173830 Dermatology 11/02/23 [place] [address] [address] [facility] [place] [address] Neurological Surgery 12/26/23 Audrey Waite PA-C [address] [place] [address] Physician Reclamation Furnace Operator Dermatology 02/28/24 Valery Veronica PA-C [address] [facility] [place] [address] Physician Reclamation Furnace Operator Dermatology 04/10/24 Herminia Hatch MD [facility]5 [place] [address] Assigned Rheumatology Provider 07/02/24 Jelena David OD [address] [place] [address] [place] K[place] [address] Ophthalmology 08/30/24 [place] [address] [place] [address] Assigned Neuroscience Provider 09/30/24 Maru Man PA-C [address] [place] [address] Physician Reclamation Furnace Operator Dermatology 10/03/24 Maru Man PA-C [address] [place] [address] Physician Reclamation Furnace Operator Dermatology 10/22/24 Jelena David OD [address] [place] [address] [place] [address] Assigned Surgical Provider 10/31/24 documented as of this encounter
--- OUTSIDE RECORDS SUMMARY | 2024-11-21 05:18 | XMS_ITS | Encounter Summary ---
Author Organization [place] Address [address] [place] [address]38 Care Team Providers Care Athletic Scout Name Role Phone Diana Desir [facility] Unavailable Rain Galaviz PA-C Unavailable Tavia Wyatt MD Unavailable Erica Farrell APRN PREVENTION SPECIALIST Unavailable Rich Barrett MD Unavailable [phone] Neil Kent MD Unavailable Diana Desir [facility] Unavailable Livan Sharif MD Unavailable Catherine Cm MD Unavailable + Valery Veronica PA-C Unavailable Brea Quinn SWITCHBOX ASSEMBLER PREVENTION SPECIALIST Unavailable Brea Quinn SWITCHBOX ASSEMBLER PREVENTION SPECIALIST Unavailable [phone] Jose Francisco Johnson MD Unavailable Sydnie Martinez RN Unavailable Unavailable Alfonso Renteria MD Unavailable [phone] Esha Grimm PA-C Primary Care Provider Radha Lomeli APRN PREVENTION SPECIALIST Unavailable Jelena David OD Unavailable Pao Joseph RN Unavailable Unavailable Esha Grimm Adam PA-C Unavailable [phone] Valery Veronica PA-C Unavailable [phone] Rey Tay MD Unavailable Rocky Zepeda DO [...] Team (Late st Contact Info) Description 07/29/2023 [facility] [place] [address] [address] Pao Joseph, RN Social History [...] exercise at this level? 30 min 03/10/2023 [place] Depression Scale Answer Date Recorded [place] Depression Score 5 01/14/2021 Last EPDS [...] PM CDT Legal Sex Female 4:13 AM FOOD PRODUCTS TESTER Gender Identity Female 03/02/2021 5:45 PM CDT Sexual Orientation Straight 02/28/2020 12 :51 AM CDT documented as of this encounter Plan of Treatment Upcoming Encounters Date Type Department Care Team (Late st Contact Info) Description 11/21/2024 7:00 AM CDT Office Visit [facility] [address] [address] Maru Man PA-C [address] [address] 12/20/2024 2:30 PM CDT Office Visit [facility] [address] [place] [phone] Esha Grimm PA-C [address] [place] [phone] 04/16/2025 11:00 AM CDT Virtual Visit [facility] [address] 4th [place] [phone] Meredith Carrera PA-C [address] [place] [address] [phone] documented as of this encounter Visit Diagnoses [...] Total Score: 4 06/20/20 23 8:40 AM FOOD PRODUCTS TESTER documented as of this encounter Care Teams Athletic Scout Relationship Specialty Start Date End Date Esha Grimm PA-C [address] [place] [phone] PCP - General Family Medicine 05/04/23 Diana Desir, [facility] [address] [facility] [address] Pharmacist Pharmacist 04/17/21 Rain Galaviz PA-C [address] [place] [address] [place] [id number] Physician Rn Manager Dermatology 04/28/21 Tavia Wyatt MD [address] [place] [address] [address] [place] [id number] Dermatology 07/14/21 Erica Farrell APRN PREVENTION SPECIALIST [address] [place] [address] Nurse Practitioner Cardiovascular Disease 09/09/21 Rich Barrett MD [address] [place] [id number] Physician Ophthalmology 01/21/22 Neil Kent MD [address] [place] [address] 819625 Dermatology 02/24/22 [facility] [address] [place] [address] Assigned [facility] Pharmacist 04/07/22 Livan Sharif MD [address] [facility] [place] [id number] Cardiovascular Disease 05/14/22 Catherine Cm MD [address] [facility] [place] [place] [id number] Cardiovascular Disease 07/21/22 Valery Veronica, PA-C [address] [place] [address] 130205 Physician Rn Manager Dermatology 07/21/22 Brea Quinn APRN PREVENTION SPECIALIST 500 [place], [place] 736285 Nurse Practitioner Dermatology 09/21/22 Brea Quinn APRN PREVENTION SPECIALIST 6401 [place] [id number] Assigned Surgical Provider 10/09/22 05/01/24 [place] [address] [place] [facility] 300 [place] [address] Assigned Musculoskeletal Provider 10/09/22 05/01/24 Sydnie Martinez RN Personal Advocate & Liaison (PAL) Family Medicine 03/28/23 07/31/23 Alfonso Renteria MD 57[address] [facility] 200 [place], [place] 039156 Assigned Neuroscience Provider 04/02/23 09/29/24 Radha Lomeli APRN PREVENTION SPECIALIST 6[address] [facility] [address] [place] [address] Assigned Heart and Vascular Provider 05/28/23 Jelena David OD [address] [facility] [place] [address] Ophthalmology 06/15/23 Pao Joseph, VJ Personal Advocate & Liaison (PAL) Nurse 08/01/23 11/07/23 Esha Grimm, PA-C [address] [place] [phone] Assigned PCP 07/16/23 Valery Veronica PA-C 9 [place], [place] 472845 Physician Rn Manager Dermatology 09/19/23 Rey Tay MD [address] [place] [address] [phone] MD Gastroenterology 09/20/23 Rocky Zepeda DO [address] [place] [address] 389805 Physician Gastroenterology 09/20/23 Philip Dumont MD [address] [place] [address] 358985 Physician Ophthalmology 09/22/23 Meredith Carrera PA-C [address] [place] [address] 816095 Assigned Gastroenterology Provider 11/01/23 Neil Kent MD [address] [address] Dermatology 11/02/23 [place] [address] [place] [address] [address] Neurological Surgery 12/26/23 Audrey Waite PA-C [address] [place] [address] Physician Rn Manager Dermatology 02/28/24 Valery Veronica PA-C [address] [facility] [place] [address] Physician Rn Manager Dermatology 04/10/24 Herminia Hatch MD [facility]5 [place] [address] Assigned Rheumatology Provider 07/02/24 Jelena David OD [address] [place] [address] [place] [address] Ophthalmology 08/30/24 [place] [address] [place] [address] Assigned Neuroscience Provider 09/30/24 Maru Man PA-C [address] [place] [address] Physician Rn Manager Dermatology 10/03/24 Maru Man PA-C [address] [place] [address] Physician Rn Manager Dermatology 10/22/24 Jelena David OD [address] [place] [address] [place] [address] Assigned Surgical Provider 10/31/24 documented as of this encounter
--- OUTSIDE RECORDS SUMMARY | 2024-11-21 05:18 | XMS_ITS | Encounter Summary ---
Author Organization [place] Address [address] [place] [address] Care Team Providers Care Senior Quantity Surveyor Name Role Phone Diana Desir Stanislav [facility] Unavailable Rain Galaviz PA-C Unavailable Tavia Wyatt MD Unavailable Erica Farrell APRN PRINTED CIRCUIT BOARDS SOLDER LEVELER Unavailable Rich Barrett MD Unavailable [phone] Neil Kent MD Unavailable ThangKendrickDiana Stanislav [facility] Unavailable [phone] Livan Sharif MD Unavailable Catherine Cm MD Unavailable + Valery Veronica-C Unavailable Brea Quinn SPORTS EQUIPMENT RACKER PRINTED CIRCUIT BOARDS SOLDER LEVELER Unavailable Esha Grimm PA-C Primary Care Provider Radha Lomeli APRN PRINTED CIRCUIT BOARDS SOLDER LEVELER Unavailable eJlena David OD Unavailable [phone] Esha Grimm PA-C Unavailable [phone] Valery Veronica PA-C Unavailable Rey Tay MD Unavailable Duane Rocky Unavailable Philip Dumont MD Unavailable Meredith Carrera PA-C Unavailable [phone] Neil eKnt MD Unavailable Juan Pablo Emmanuel MD Unavailable Audrey Waite PA-C Unavailable [phone] Valery Veronica PA-C Unavailable Herminia Hatch MD Unavailable Jelena David OD Unavailable [phone] Juan Pablo Emmanuel MD Unavailable [phone] Maru Man-C Unavailable [phone] Maru Man-C Unavailable [phone] Jelena David OD Unavailable [phone] Encounter Details Date Type Department Care Team (Late st Contact Info) Description 10/01/2024 [facility] Medical Advice [address] [place] [address] Marija Bailey RN Social History [...] week 05/07/2024 How often do you attend [facility]? 1 to 4 times [...] [facility] - [...] exercise at this level? 20 min 05/07/2024 [place] Depression Scale Answer Date Recorded [place] Depression Score 5 01/14/2021 Last EPDS Self [...] CDT Legal Sex Female 4:13 AM AUTOMATION CONTROLS SPECIALIST Gender Identity Female 03/02/2021 5:45 PM CDT Sexual Orientation Straight 02/28/2020 12 :51 AM CDT documented as of this encounter Plan of Treatment Upcoming Encounters Date Type Department Care Team (Late st Contact Info) Description 11/21/2024 7:00 AM CDT Office Visit [address] [phone] Maru Man PA-C [address] 345410 12/20/2024 2:30 PM CDT Office Visit [facility] [address] [place] [address] Esha Grimm PA-C [id number] [place] [phone] 04/16/2025 11:00 AM CDT Virtual Visit [facility] [address] 4th [place] [phone] Meredith Carrera PA-C [address] [place] [address] documented as of this encounter Visit Diagnoses Not on filedocumented in this encounter Additional Health Concerns Infection Onset Date Last Indicated Resolved Time Rule Out COVID-19 10/04/2024 10/04/2024 10/05/2024 9:42 AM CDT Rule Out COVID-19 11/20/2024 11/20/2024 Assessment Noted Time PHQ-9 Depression Total Score: 3 02/07/20 24 9:33 AM CDT documented as of this encounter Care Teams Senior Quantity Surveyor Relationship Specialty Start Date End Date Esha Grimm PA-C [address] [place] [phone] PCP - General Family Medicine 05/04/23 Diana Desir, [facility] 3033 [place] [address] Pharmacist Pharmacist 04/17/21 Rain Galaviz PA-C [address] [place] [address] [address] [place] [address] Physician Brickmason Supervisor Dermatology 04/28/21 Tavia Wyatt MD [address] [place] [address] [address] [place] [address] Dermatology 07/14/21 Erica Farrell APRN PRINTED CIRCUIT BOARDS SOLDER LEVELER [address] [place], [place] [address] Nurse Practitioner Cardiovascular Disease 09/09/21 Rich Barrett MD [address] [place], [place] 4[address]15 Physician Ophthalmology 01/21/22 Neil Kent MD 500 [place], [place] 779785 Dermatology 02/24/22 Diana Desir, [facility] 3033 [place], [place] 441156 Assigned [facility] Pharmacist 04/07/22 Livan Sharif MD [address] [place] [address] Cardiovascular Disease 05/14/22 Catherine Cm MD [address] [place] 377385 Cardiovascular Disease 07/21/22 Valery Veronica PAUcheC [address] [place] [address] 219335 Physician Brickmason Supervisor Dermatology 07/21/22 Brea Quinn APRN PRINTED CIRCUIT BOARDS SOLDER LEVELER 500 [place] [address] Nurse Practitioner Dermatology 09/21/22 Radha Lomeli APRN PRINTED CIRCUIT BOARDS SOLDER LEVELER [address] [place] [address] Assigned Heart and Vascular Provider 05/28/23 [place]elena David OD [address] [facility] [place] [address] MD Ophthalmology 06/15/23 Esha Grimm PA-C [address] [place] [phone] Assigned PCP 07/16/23 Valery Veronica PA-C [address] [place] [address] 662375 Physician Brickmason Supervisor Dermatology 09/19/23 Rey Tay MD [address] [place] [address] 227195 MD Gastroenterology 09/20/23 Rocky Zepeda DO [address] [place] [address] 726265 Physician Gastroenterology 09/20/23 Philip Dumont MD [address] [place] [address] 240875 Physician Ophthalmology 09/22/23 Meredith Carrera PA-C [address] [place] [address] 143825 Assigned Gastroenterology Provider 11/01/23 Neil Kent MD [address] 835970 Dermatology 11/02/23 [place] [address] [place] [address] Neurological Surgery 12/26/23 Audrey Waiet PA-C 500 [place] [address] Physician Brickmason Supervisor Dermatology 02/28/24 Valery Veronica PA-C [address] [place] [address] Physician Brickmason Supervisor Dermatology 04/10/24 Herminia Hatch MD [address] [place] [address] [phone] Assigned Rheumatology Provider 07/02/24 Jelena David OD [address] [place] [address] [place] [address] Ophthalmology 08/30/24 [place] [address] [place] [address] Assigned Neuroscience Provider 09/30/24 Maru Man PA-C [address] [place] [address] Physician Brickmason Supervisor Dermatology 10/03/24 Maru Man PA-C [address] [place] [address] Physician Brickmason Supervisor Dermatology 10/22/24 [place]ena David OD [address] [facility] [address] [place] [address] Assigned Surgical Provider 10/31/24 documented as of this encounter
--- OUTSIDE RECORDS SUMMARY | 2024-11-21 05:18 | XMS_ITS | Encounter Summary ---
Author Organization [place] Address [address] [place] [address] Care Team Providers Care Workforce Development Vice President Name Role Phone Diana Desir Stanislav [facility] Unavailable Rain Galaviz PA-C Unavailable Tavia Wyatt MD Unavailable Erica Farrell APRN AERONAUTICAL PROJECT ENGINEER Unavailable Rich Barrett MD Unavailable [phone] Neil Kent MD Unavailable ThangKendrickDiana Stanislav [facility] Unavailable [phone] Livan Sharif MD Unavailable Catherine Cm MD Unavailable + Valery Veronica-C Unavailable Brea Quinn SELF SEALING FUEL TANK BUILDER AERONAUTICAL PROJECT ENGINEER Unavailable [phone] Esha Grimm PA-C Primary Care Provider Radha Lomeli APRN AERONAUTICAL PROJECT ENGINEER Unavailable Jelena David OD Unavailable Esha Grimm PA-C Unavailable [phone] Valery Veronica PA-C Unavailable Rey Tay MD Unavailable Duane Rockyanne [place] Unavailable Philip Dumont MD Unavailable Meredith CarreraC Unavailable Neil Kent MD Unavailable Juan Pablo Emmanuel MD Unavailable Audrey Waite-C Unavailable Valery Veronica-C Unavailable Herminia Hatch MD Unavailable Jelena David OD Unavailable Juan Pablo Emmanuel MD Unavailable Maru ManC Unavailable [phone] Reason for Visit * Reason Onset Date Comments Appointment 10/18/2024 10/31/2024 Encounter Details Date Type Department Care Team (Late st Contact Info) Description 10/18/2024 [facility] [address] [place] [address] Meredith Carrera PA-C [address] [place] [address] Appointment (10/31/2024) Social History Tobacco Use [...] Answer Date Recorded PHQ-2 Score 1 02/07/2024 [facility] - Occupational [...] exercise at this level? 20 min 05/07/2024 [place] Depression Scale Answer Date Recorded [place] Depression Score 5 01/14/2021 Last EPDS Self [...] PM CDT Legal Sex Female 4:13 AM GAUGE CHECKER Gender Identity Female 03/02/2021 5:45 PM CDT Sexual Orientation Straight 02/28/2020 12 :51 AM CDT documented as of this encounter Miscellaneous Notes * Telephone Encounter - Richar Schafer - 10/18/2024 2:37 PM CDT Due to a change in the provider's schedule for 10/31/2024, [facility] [employer] Director is reaching out to see if Pt is able to move Pt's appointment time form 10:45 AM to 9:15 AM. [employer] [facility] [employer] Director called and talked with the Pt. Pt was okay with the appointment time change to 9:15 AM. documented in this encounter Plan of Treatment Upcoming Encounters Date Type Department Care Team (Late st Contact Info) Description 11/21/2024 7:00 AM CDT Office Visit [facility] [address] [phone] Maru Man PA-C [address] [address] 12/20/2024 2:30 PM CDT Office Visit [facility] [address] [place] [phone] Esha Grimm PA-C [address] [place] [address] 04/16/2025 11:00 AM CDT Virtual Visit [facility] [address] [phone] Meredith Carrera PA-C [address] [place] [address] documented as of this encounter Visit Diagnoses Not on filedocumented in this encounter Additional Health Concerns Assessment Noted Time PHQ-9 Depression Total Score: 3 02/07/20 24 9:33 AM CDT documented as of this encounter Care Teams Workforce Development Vice President Relationship Specialty Start Date End Date Esha Grimm PA-C [address] [place] [address] PCP - General Family Medicine 05/04/23 Diana Desir, [facility] [address] [place] [address] Pharmacist Pharmacist 04/17/21 Rain Galaviz PA-C [address] [place] [address] [place] [address] Physician Senior Environmental Technician Dermatology 04/28/21 Tavia Wyatt MD [address] [place] [address] [address] [place] [address] Dermatology 07/14/21 Erica Farrell APRN AERONAUTICAL PROJECT ENGINEER [address] [place] [address] Nurse Practitioner Cardiovascular Disease 09/09/21 Rich Barrett MD [address] [place] 647085 Physician Ophthalmology 01/21/22 Neil Kent MD [address] [place] [address] 864725 Dermatology 02/24/22 [facility] [address] [place] [address] Assigned [facility] Pharmacist 04/07/22 Livan Sharif MD [address] [place] [address] Cardiovascular Disease 05/14/22 Catherine Cm MD [address] [place] 5397[address] Cardiovascular Disease 07/21/22 Valery Veronica, PA-C [address] [place] [address] 842255 Physician Senior Environmental Technician Dermatology 07/21/22 Brea Quinn APRN AERONAUTICAL PROJECT ENGINEER [address] [place] [address] 572735 Nurse Practitioner Dermatology 09/21/22 Radha Lomeli APRN AERONAUTICAL PROJECT ENGINEER [address] [place] [address] [address] [place], [place] 576585 Assigned Heart and Vascular Provider 05/28/23 Jelena David OD [address] [facility] [address] [place] [id number] MD Ophthalmology 06/15/23 Esha Grimm PA-C [address] [place] [address] Assigned PCP 07/16/23 Valery Veronica PA-C [address] [place] [address] 436725 Physician Senior Environmental Technician Dermatology 09/19/23 Rey Tay MD [address] [place] [address] 468585 Gastroenterology 09/20/23 Rocky Zepeda DO [address] [place] [address] 867165 Physician Gastroenterology 09/20/23 Philip Dumont MD [address] [place] [address] Physician Ophthalmology 09/22/23 Meredith Carrera PA-C 909 [place] [address] Assigned Gastroenterology Provider 11/01/23 Neil Kent MD [address] [place] [address] Dermatology 11/02/23 [place] [address] [place] [address] Neurological Surgery 12/26/23 Audrey Waite PA-C [address] [place] [address] Physician Senior Environmental Technician Dermatology 02/28/24 Valery Veronica PA-C 609240 [place], [place] [address] Physician Senior Environmental Technician Dermatology 04/10/24 Herminia Hatch MD [facility] [place], [place] 36971125 Assigned Rheumatology Provider 07/02/24 Jelena David OD [address] [place] [address] [place] [address] Ophthalmology 08/30/24 [place] [address] [place] [address] Assigned Neuroscience Provider 09/30/24 Maru Man PA-C [address] [place] [address] Physician Senior Environmental Technician Dermatology 10/03/24 documented as of this encounter
--- OUTSIDE RECORDS SUMMARY | 2024-11-21 05:18 | XMS_ITS | Encounter Summary ---
Author Organization [facility] Address [address] [place] [address] Care Team Providers Care Vice President Business & Corporate Development Name Role Phone Diana Desir [facility] Unavailable Rain Galaviz PA-C Unavailable Tavia Wyatt MD Unavailable Erica Farerll APRN CHIEF LIBRARIAN MUSIC DEPARTMENT Unavailable Rich Barrett MD Unavailable [phone] Neil Kent MD Unavailable Diana Desir [facility] Unavailable Livan Sharif MD Unavailable Catherine Cm MD Unavailable + Valery Veronica PA-C Unavailable Brea Quinn CLINICAL TRIALS ASSISTANT CHIEF LIBRARIAN MUSIC DEPARTMENT Unavailable [phone] Brea Quinn CLINICAL TRIALS ASSISTANT CHIEF LIBRARIAN MUSIC DEPARTMENT Unavailable Jose Francisco Johnson MD Unavailable Alfonso Renteria MD Unavailable [phone] Ehsa Grimm PA-C Primary Care Provider Radha Lomeli APRN CHIEF [employer]RARIAN MUSIC DEPARTMENT Unavailable Jelena David OD Unavailable Pao Joseph RN Unavailable Unavailable Esha Grimm Adam PA-C Unavailable [phone] Valery Veronica PA-C Unavailable [phone] Rey Tay MD Unavailable Daune Rockyanne STEVENS Unavailable Philip Dumont MD Unavailable [phone] Meredith Carrera PA-C Unavailable [phone] Neil Kent MD Unavailable Juan Pablo Emmanuel MD Unavailable [phone] Audrey Waite PA-C Unavailable [phone] JeremíasValery damon PA-C Unavailable Herminia Hatch MD Unavailable Jelena David OD Unavailable Juan Pablo Emmanuel MD Unavailable [phone] Maru Man PA-C Unavailable [phone] Maru Man PA-C Unavailable [phone] Jelena David OD Unavailable Encounter Details Date Type Department Care Team (Late st Contact Info) Description 08/11/2023 MyC Medical Advice [address] [address] Pao Joseph, RN Social History [...] Answer Date Recorded PHQ-2 Score 0 06/20/2023 [facility] of Occupat ional [...] exercise at this level? 30 min 03/10/2023 [place] Depression Scale Answer Date Recorded [place] Depression Score 5 01/14/2021 Last EPDS Self [...] PM CDT Legal Sex Female 4:13 AM JUNIOR SOFTWARE ENGINEER Gender Identity Female 03/02/2021 5:45 PM CDT Sexual Orientation Straight 02/28/2020 12 :51 AM CDT documented as of this encounter Plan of Treatment Upcoming Encounters Date Type Department Care Team (Late st Contact Info) Description 11/21/2024 7:00 AM CDT Office Visit [facility] [address] [phone] Maru Man PA-C [address] [address] 12/20/2024 2:30 PM CDT Office Visit [place] [id number] [place] [phone] Esha Grimm PA-C [address] [place] [address] 04/16/2025 11:00 AM CDT Virtual Visit [facility] [address] 4th [place] [phone] Meredith Carrera PA-C [address] [place] [address] 008065 documented as of this encounter Visit Diagnoses [...] Total Score: 4 06/20/20 23 8:40 AM JUNIOR SOFTWARE ENGINEER documented as of this encounter Care Teams Vice President Business & Corporate Development Relationship Specialty Start Date End Date Esha Grimm PA-C [address] [place] [address] PCP - General Family Medicine 05/04/23 Diana Desir, [facility] [address] [place] [address] Pharmacist Pharmacist 04/17/21 Rain Galaviz PA-C [address] [place] [address] [facility] [place] [phone] Physician Ocular Care Aide Dermatology 04/28/21 Tavia Wyatt MD [address] [place] [address] [place] [address] Dermatology 07/14/21 Erica Farrell APRN CHIEF LIBRARIAN MUSIC DEPARTMENT [address] [place] [address] Nurse Practitioner Cardiovascular Disease 09/09/21 Rich Barrett MD [address] [place] [address] Physician Ophthalmology 01/21/22 Neil Kent MD [address] [place] [address] Dermatology 02/24/22 [facility] [address] [place] [address] Assigned [place] Pharmacist 04/07/22 Livan Sharif MD [address] [place] [address] Cardiovascular Disease 05/14/22 Catherine Cm MD [address] [place] [address] [place] 011[address] Cardiovascular Disease 07/21/22 Valery Veronica, PA-C [address] [place] [address] 579005 Physician Ocular Care Aide Dermatology 07/21/22 Brea Quinn APRN CHIEF LIBRARIAN [employer]IC DEPARTMENT 500 [place], [place] 471765 Nurse Practitioner Dermatology 09/21/22 Brea Quinn APRN CHIEF [employer]RARIAN [employer]IC DEPARTMENT 6401 [place] [address] Assigned Surgical Provider 10/09/22 05/01/24 [place] [address] [place] [facility] 300 [place] [address] Assigned Musculoskeletal Provider 10/09/22 05/01/24 Alfonso Renteria MD 5775 [facility] 200 [place], [place] 275596 Assigned Neuroscience Provider 04/02/23 09/29/24 Radha Lomeli APRN CHIEF LIBRARIAN MUSIC DEPARTMENT [address] [place] 1076800 [place] [address] Assigned Heart and Vascular Provider 05/28/23 Jelena David OD [address] [facility] [place] [address] Ophthalmology 06/15/23 Pao Joseph, VJ Personal Advocate & Liaison (PAL) Nurse 08/01/23 11/07/23 Esha Grimm PA-C [address] [place] [address] Assigned PCP 07/16/23 Valery Veronica PA-C [address] [place] [address] Physician Ocular Care Aide Dermatology 09/19/23 Rey Tay MD [address] [place] [address] MD Gastroenterology 09/20/23 Rocky Zepeda DO [address] [place] [address] Physician Gastroenterology 09/20/23 Philip Dumont MD [address] [place] [address] Physician Ophthalmology 09/22/23 Meredith Carrera PA-C [address] [place] [address] Assigned Gastroenterology Provider 11/01/23 Neil Kent MD [address] [address] Dermatology 11/02/23 [place] [address] [place] [address] 937537 Neurological Surgery 12/26/23 Audrey Waite PA-C [address] [place] [address] Physician Ocular Care Aide Dermatology 02/28/24 Valery Veronica PA-C 986688 [place] [address] Physician Ocular Care Aide Dermatology 04/10/24 Herminia Hatch MD [facility]5 [place] [address] Assigned Rheumatology Provider 07/02/24 Jelena David OD [facility]5 [facility] [place] [address] Ophthalmology 08/30/24 [place] [address] [place] [address] Assigned Neuroscience Provider 09/30/24 Maru Man PA-C [address] [place] [address] Physician Ocular Care Aide Dermatology 10/03/24 Maru Man PA-C [address] [place] [address] Physician Ocular Care Aide Dermatology 10/22/24 Jelena David OD [facility]5 [facility] [place] [address] Assigned Surgical Provider 10/31/24 documented as of this encounter
--- OUTSIDE RECORDS SUMMARY | 2024-11-21 05:18 | XMS_ITS | Encounter Summary ---
Author Organization [facility] Address [address] [place] [address] Care Team Providers Care Manager Medical Affairs Name Role Phone Diana Desir [facility] Unavailable Rain Galaviz PA-C Unavailable Tavia Wyatt MD Unavailable Erica Farrell APRN PITCH GATHERER Unavailable Rich Barrett MD Unavailable [phone] Neil Kent MD Unavailable Diana Desir [facility] Unavailable Livan Sharif MD Unavailable Catherine Cm MD Unavailable + Valery Veronica PA-C Unavailable Brea Quinn NETWORKING SPECIALIST PITCH GATHERER Unavailable Brea Quinn NETWORKING SPECIALIST PITCH GATHERER Unavailable [phone] Jose Francisco Johnson MD Unavailable Sydnie Martinez RN Unavailable Unavailable Alfonso Renteria MD Unavailable [phone] Esha Grimm PA-C Primary Care Provider Radha Lomeli APRN PITCH GATHERER Unavailable Jelena David OD Unavailable Pao Joseph RN Unavailable Unavailable Ehsa Grimm PA-C Unavailable [phone] Valery Veronica PA-C Unavailable [phone] Rey Tay MD Unavailable Rocky Zepeda [...] Team (Late st Contact Info) Description 07/27/2023 [facility] [place] [place] [facility] [address] [address] Diana Desir, [facility] [address] [place], [place] [phone] Social History Tobacco Use Types Packs/Day Years [...] you attend [employer] [facility] [facility] or s[employer] services? 1 to 4 times [...] 0 06/20/2023 [facility] of Occupat ional [...] exercise at this level? 30 min 03/10/2023 [place] Depression Scale Answer Date Recorded [place] [...] PM CDT Legal Sex Female 4:13 AM PICKLE CUTTER Gender Identity Female 03/02/2021 5:45 PM CDT Sexual Orientation Straight 02/28/2020 12 :51 AM CDT documented as of this encounter Plan of Treatment Upcoming Encounters Date Type Department Care Team ([facility] st Contact Info) Description 11/21/2024 7:00 AM CDT Office Visit [facility] [address] [phone] Maru Man PA-C [address] [address] 12/20/2024 2:30 PM CDT Office Visit [facility] [address] [place] [address] Esha Grimm PA-C [address] [place] [address] 04/16/2025 11:00 AM CDT Virtual Visit [facility] [address] 4th [place] [address] Meredith Carrera PA-C [address] [place] [address] documented as of this encounter Visit Diagnoses [...] Total Score: 4 06/20/20 23 8:40 AM PICKLE CUTTER documented as of this encounter Care Teams Manager Medical Affairs Relationship Specialty Start Date End Date Esha Grimm PA-C [id number] [place] [address] PCP - General Family Medicine 05/04/23 Diana Desir [facility] [address] [place] [address] Pharmacist Pharmacist 04/17/21 Rain Galaviz PA-C [address] [place] [address] [address] [place] [address] Physician Forestry Biology Specialist Dermatology 04/28/21 Tavia Wyatt MD [address] [place] [address] [place] [address] Dermatology 07/14/21 Erica Farrell APRN PITCH GATHERER [address] [place] 4324[address] Nurse Practitioner Cardiovascular Disease 09/09/21 Rich Barrett MD [address] [place] 856065 Physician Ophthalmology 01/21/22 Neil Kent MD 500 [place], [place] 339555 Dermatology 02/24/22 Diana Desir, [facility] 30[address] [place], [place] 554866 Assigned MTM Pharmacist 04/07/22 Livan Sharif MD [address] [place] 421595 Cardiovascular Disease 05/14/22 Catherine Cm MD [address] [place] [address] Cardiovascular Disease 07/21/22 Valery Veronica PA-C 909 [place] [address] Physician Forestry Biology Specialist Dermatology 07/21/22 Brea Quinn APRN PITCH GATHERER 500 [place] [address] Nurse Practitioner Dermatology 09/21/22 Brea Quinn APRN PITCH GATHERER 6401 [place], [place] 764422 Assigned Surgical Provider 10/09/22 05/01/24 [place] [address] [address] Assigned Musculoskeletal Provider 10/09/22 05/01/24 Sydnie Martinez RN Personal Advocate & Liaison (PAL) Family Medicine 03/28/23 07/31/23 Alfonso Renteria MD [address] [facility] 200 [place], [place] 239476 Assigned Neuroscience Provider 04/02/23 09/29/24 Radha Lomeli APRN PITCH GATHERER [address] [facility] [address] [place] [address] Assigned Heart and Vascular Provider 05/28/23 Jelena David OD [address] [facility] [place] [address] Ophthalmology 06/15/23 Pao Joseph, VJ Personal Advocate & Liaison (PAL) Nurse 08/01/23 11/07/23 Esha Grimm [place]-C [address] [place] [address] Assigned PCP 07/16/23 Valery Veronica PA-C [address] [place] [address] 336985 Physician Forestry Biology Specialist Dermatology 09/19/23 Rey Tay MD [address] [place] [address] MD Gastroenterology 09/20/23 Rocky Zepeda DO [address] [place] [address] 056245 Physician Gastroenterology 09/20/23 Philip Dumont MD [address] [place] [address] Physician Ophthalmology 09/22/23 Meredith Carrera PA-C [address] [place] [address] Assigned Gastroenterology Provider 11/01/23 Neil Kent MD [address] [address] Dermatology 11/02/23 [place] [address] [place] [address] Neurological Surgery 12/26/23 Audrey Waite PA-C [address] [place] [address] 369955 Physician Forestry Biology Specialist Dermatology 02/28/24 Valery Veronica PA-C 307103 [address] [place] [address] Physician Forestry Biology Specialist Dermatology 04/10/24 Herminia Hatch MD [address] [place] [address] Assigned Rheumatology Provider 07/02/24 Jelena David OD [address] [place] [address] [place] [address] Ophthalmology 08/30/24 [place] [address] [place] [address] Assigned Neuroscience Provider 09/30/24 Maru Man PA-C [address] [place] [address] Physician Forestry Biology Specialist Dermatology 10/03/24 Maru Man PA-C [address] [place] [address] Physician Forestry Biology Specialist Dermatology 10/22/24 Jelena David OD [facility]5 [facility] [place] [address] Assigned Surgical Provider 10/31/24 documented as of this encounter
--- OUTSIDE RECORDS SUMMARY | 2024-11-21 05:18 | XMS_ITS | Encounter Summary ---
Author Organization [facility] Address [address] [place] [address] Care Team Providers Care Refractory Manager Name Role Phone Diana Desir [facility] Unavailable Rain Galaviz PA-C Unavailable [phone] Tavia Wyatt MD Unavailable Erica Farrell APRN CLAY MINER Unavailable Rich Barrett MD Unavailable [phone] Neil Kent MD Unavailable Diana Desir [facility] Unavailable Livan Sharif MD Unavailable Catherine Cm MD Unavailable + Valery Veronica PA-C Unavailable Brea Quinn [employer] CLAY MINER Unavailable Brea Quinn [employer] CLAY MINER Unavailable Jose Francisco Johnson MD Unavailable Alfonso Renteria MD Unavailable [phone] Esha Grimm PA-C Primary Care Provider Radha Lomeli APRN CLAY MINER Unavailable Jelena David OD Unavailable Pao Joseph RN Unavailable Unavailable Esha Grimm PA-C Unavailable [phone] Valery Veronica PA-C Unavailable Rey Tay MD Unavailable Rocky Zepeda DO Unavailable Philip Dumont MD Unavailable Meredith Carrera PA-C Unavailable Neil Kent MD Unavailable Juan Pablo Emmanuel MD Unavailable Audrey Waite PA-C Unavailable JeremíasValery damon PA-C Unavailable Herminia Hatch MD Unavailable Jelena David OD Unavailable [phone] Juan Pablo Emmanuel MD Unavailable Maru Man PA-C Unavailable Maru Man PA-C Unavailable Jelena David OD Unavailable Encounter Details Date Type Department Care Team (Late st Contact Info) Description 08/10/[address] [facility] [address] [place] [address] Esha Grimm PA-C [id number] [place] [address] Social History Tobacco Use Types Packs/Day [...] at this level? 30 min 03/10/2023 [place] Depression Scale Answer Date Recorded [place] Depression Score 5 01/14/2021 Last EPDS Self [...] PM CDT Legal Sex Female 4:13 AM TOYS INSPECTOR Gender Identity Female 03/02/2021 5:45 PM CDT Sexual Orientation Straight 02/28/2020 12 :51 AM CDT documented as of this encounter Miscellaneous Notes * Telephone Encounter - Asiya Reddy RN - 08/10/2023 11:40 AM TOYS INSPECTOR Esha- see [employer] message below. Patient did call to see if E-Visit would be addressed today. No immediate concern at this time. Advised UC if needed sooner. Asiya Fedderly, RN INSPECTOR documented in this encounter Plan of Treatment Upcoming Encounters Date Type Department Care Team (Late st Contact Info) Description 11/21/2024 7:00 AM CDT Office Visit [facility] [address] [address] Maru Man PA-C [address] [place] [address] 12/20/2024 2:30 PM CDT Office Visit [facility] [address] [place] [address] Esha Grimm PA-C [id number] [place] [address] 04/16/2025 11:00 AM CDT Virtual Visit [facility] [address] [phone] Meredith Carrera PA-C [address] [place] [address] documented as of this encounter Visit Diagnoses [...] Total Score: 4 06/20/20 23 8:40 AM TOYS INSPECTOR documented as of this encounter Care Teams Refractory Manager Relationship Specialty Start Date End Date Esha Grimm PA-C [address] [place] [phone] PCP - General Family Medicine 05/04/23 Diana Desir, [facility] [address] [place] [address] Pharmacist Pharmacist 04/17/21 Rain Galaviz PA-C [address] [place] [address] [address] [facility] [place] [address] Physician Hydraulics Teacher Dermatology 04/28/21 Tavia Wyatt MD [address] [place] [address] [address] [place] [address] Dermatology 07/14/21 Erica Farrell APRN CLAY MINER [address] [place] [address] Nurse Practitioner Cardiovascular Disease 09/09/21 Rich Barrett MD [address] [place] [address] Physician Ophthalmology 01/21/22 Neil Kent MD 500 [place] [address] Dermatology 02/24/22 Diana Desir, [facility] [address] [place] [address] Assigned MTM Pharmacist 04/07/22 Livan Sharif MD [address] [facility] [address] [place] [address] Cardiovascular Disease 05/14/22 Catherine Cm MD [address] [facility] [address] [facility] [address] [place] [address] Cardiovascular Disease 07/21/22 Valery Veronica, PA-C [address] [place] [address] 150335 Physician Hydraulics Teacher Dermatology 07/21/22 Brea Quinn APRN CLAY MINER 500 [place], [place] 286165 Nurse Practitioner Dermatology 09/21/22 Brea Quinn APRN CLAY MINER 6401 [place] [address] Assigned Surgical Provider 10/09/22 05/01/24 [place] [address] [facility] 300 [place] [address] Assigned Musculoskeletal Provider 10/09/22 05/01/24 Alfonso Renteria MD [address]75 [facility] 200 [place], [place] [address]696 Assigned Neuroscience Provider 04/02/23 09/29/24 Radha Lomeli APRN CLAY MINER [address] [place] [address] Assigned Heart and Vascular Provider 05/28/23 Jelena David OD [address]305 [facility] [place] [address] MD Ophthalmology 06/15/23 Pao Joseph, RN Personal Advocate & Liaison (PAL) Nurse 08/01/23 11/07/23 Esha Grimm PA-C [address] [place] [phone] Assigned PCP 07/16/23 Valery Veronica PA-C [address] [place] [address] 796365 Physician Hydraulics Teacher Dermatology 09/19/23 Rey Tay MD [address] [place] [address] 804895 MD Gastroenterology 09/20/23 Rocky Zepeda DO [address] [place] [address] 809505 Physician Gastroenterology 09/20/23 Philip Dumont MD [address] [place] [address] 116045 Physician Ophthalmology 09/22/23 Meredith Carrera PA-C [address] [place] [address] 531365 Assigned Gastroenterology Provider 11/01/23 Neil Kent MD [address] [place] [address] Dermatology 11/02/23 [place] [address] [place] [address] Neurological Surgery 12/26/23 Audrey Waite PA-C [address] [place] [address] Physician Hydraulics Teacher Dermatology 02/28/24 Valery Veronica PA-C 27[address]19 [address] [place] [address] Physician Hydraulics Teacher Dermatology 04/10/24 Herminia Hatch MD [address] [place] [address] Assigned Rheumatology Provider 07/02/24 Jelena David OD [address] [place] [address] [place] [address] Ophthalmology 08/30/24 [place] [address] [place] [address] Assigned Neuroscience Provider 09/30/24 Maru Man PA-C [address] [place] [address] Physician Hydraulics Teacher Dermatology 10/03/24 Maru Man PA-C [address] [place] [address] Physician Hydraulics Teacher Dermatology 10/22/24 Jelena David OD [address] [place] [address] [place] [address] Assigned Surgical Provider 10/31/24 documented as of this encounter
--- OUTSIDE RECORDS SUMMARY | 2024-11-21 05:19 | XMS_ITS | Encounter Summary ---
Author Organization [place] Address [address] [place] [address] Care Team Providers Care Street Sprinkler Name Role Phone Diana Desir [facility] Unavailable Rain Galaviz PA-C Unavailable Tavia Wyatt MD Unavailable [phone] Erica Farrell APRN ASSISTANT SURVEYOR Unavailable Rich Barrett MD Unavailable [phone] Neil Kent MD Unavailable DesirDiana [facility] Unavailable Livan Sharif MD Unavailable Catherine Cm MD Unavailable + Valery Veronica PA-C Unavailable Brea Quinn APRN ASSISTANT SURVEYOR Unavailable Brea Quinn SALES REPRESENTATIVE MARINE SUPPLIES ASSISTANT SURVEYOR Unavailable Jose Francisco Johnson MD Unavailable Sydnie Martinez RN Unavailable Unavailable Alfonso Renteria MD Unavailable [phone] Esha Grimm PA-C Primary Care Provider [phone] Cheng Todd PA-C Unavailable Radha Lomeli APRN ASSISTANT SURVEYOR Unavailable Jelena David OD Unavailable [phone] Pao Joseph RN Unavailable Unavailable Esha Grimm PA-C Unavailable [phone] Valery Veronica PA-C Unavailable Rey Tay [...] Team (Late st Contact Info) Description 07/06/2023 [facility] [address] [place] [address] Esha Grimm PA-C [address] [place] [address] Social History Tobacco Use Types [...] [facility] or nondenominational services? 1 to 4 times per year 03/10/2023 Do you belong to any clubs o r organizations such as rastafari groups, unions, fraternal or athletic groups, or school groups? No 03/10/2023 Attends Club or Organization Meetings Not on slhomo e 03/10/2023 Are you , , di [...] exercise at this level? 30 min 03/10/2023 [place] Depression Scale Answer Date Recorded [place] Depression Score 5 01/14/2021 Last EPDS Self [...] CDT Legal Sex Female 4:13 AM OFFICE ASST Gender Identity Female 03/02/2021 5:45 PM CDT Sexual Orientation Straight 02/28/2020 12 :51 AM CDT documented as of this encounter Plan of Treatment Upcoming Encounters Date Type Department Care Team (Late st Contact Info) Description 11/21/2024 7:00 AM CDT Office Visit [address] [address] Maru Man PA-C [address] [place], [place] [address] 12/20/2024 2:30 PM CDT Office Visit [facility] [address] [place] [address] Esha Grimm PA-C [address] [place] [address] 04/16/2025 11:00 AM CDT Virtual Visit [facility] Gastroenterology Clinic [address] [place] [address] Meredith Carrera PA-C [address] [place] [address] 613775 documented as of this encounter Visit Diagnoses [...] Total Score: 4 06/20/20 23 8:40 AM OFFICE ASST documented as of this encounter Care Teams Street Sprinkler Relationship Specialty Start Date End Date Esha Grimm PA-C [address] [place] [address] PCP - General Family Medicine 05/04/23 Diana Desir, [facility] [address] [place], [place] 971806 Pharmacist Pharmacist 04/17/21 Rain Galaviz PA-C [address] [place] [address] [address] [place] [address] Physician Primary Counselor Dermatology 04/28/21 Tavia Wyatt MD [address] [place] [address] [place] [address] Dermatology 07/14/21 Erica Farrell APRN ASSISTANT SURVEYOR [address] [place] 064655 Nurse Practitioner Cardiovascular Disease 09/09/21 Rich Barrett MD [address] [place] [id number] Physician Ophthalmology 01/21/22 Neil [place] MD 500 [place], [place] 476365 Dermatology 02/24/22 [facility] [address] [place] [address] Assigned MTM Pharmacist 04/07/22 Livan Sharif MD [address] [place] 725495 Cardiovascular Disease 05/14/22 Catherine Cm MD [address] [place] 316045 Cardiovascular Disease 07/21/22 Valery Veronica PA-C [address]09 [place] [address] Physician Primary Counselor Dermatology 07/21/22 Brea Quinn APRN ASSISTANT SURVEYOR [address] [place] [address] 636865 Nurse Practitioner Dermatology 09/21/22 Brea Quinn APRN ASSISTANT SURVEYOR [address] [place] [address] Assigned Surgical Provider 10/09/22 05/01/24 [place] [address] [facility] 300 [place] [address] Assigned Musculoskeletal Provider 10/09/22 05/01/24 Sydine Martinez RN Personal Advocate & Liaison (PAL) Family Medicine 03/28/23 07/31/23 Alfonso Renteria MD 5775 [facility] 200 [place] [address] Assigned Neuroscience Provider 04/02/23 09/29/24 Cheng Todd PA-C [address] [place] [address] [phone] Assigned PCP 04/30/23 07/15/23 Radha Lomeli APRN ASSISTANT SURVEYOR [address] [place] [address] Assigned Heart and Vascular Provider 05/28/23 Jelena David OD [address] [place] [address] MD Ophthalmology 06/15/23 Pao Joseph, RN Personal Advocate & Liaison (PAL) Nurse 08/01/23 11/07/23 Esha Grimm PA-C [address] [place] [phone] Assigned PCP 07/16/23 Valery Veronica PA-C [address] [place] [address] 084365 Physician Primary Counselor Dermatology 09/19/23 Rey Tay MD [address] [place] [address] 795875 MD Gastroenterology 09/20/23 Rocky Zepeda DO [address] [place] [address] 061935 Physician Gastroenterology 09/20/23 Philip Dumont MD [address] [place] [address] 414465 Physician Ophthalmology 09/22/23 Meredith Carrera PA-C [address] [place] [address] 174035 Assigned Gastroenterology Provider 11/01/23 Neil Kent MD [address] [address] Dermatology 11/02/23 [place] [address] [place] [address] Neurological Surgery 12/26/23 Audrey Waite PA-C 500 [place] [address] Physician Primary Counselor Dermatology 02/28/24 Valery Veronica PA-C [address] [place] [address] Physician Primary Counselor Dermatology 04/10/24 Herminia Hatch MD [address] [place] [address] [phone] Assigned Rheumatology Provider 07/02/24 Jelena David, SONJA [address] [place] [address] [place] [address] Ophthalmology 08/30/24 [place] [address] [place] [address] Assigned Neuroscience Provider 09/30/24 Maru Man PA-C [address] [place] [address] Physician Primary Counselor Dermatology 10/03/24 Maru Man PA-C [address] [place] [address] Physician Primary Counselor Dermatology 10/22/24 Jelena David OD [address] [place] [address] [place] [address] Assigned Surgical Provider 10/31/24 documented as of this encounter
--- OUTSIDE RECORDS SUMMARY | 2024-11-21 05:19 | XMS_ITS | Encounter Summary ---
Author Organization [facility] Address [address] [place] [address] Care Team Providers Care School Cafeteria Head Cook Name Role Phone Diana Desir [facility] Unavailable Rain Galaviz PA-C Unavailable Tavia Wyatt MD Unavailable Erica Farrell APRN DIMENSIONAL ENGINEER Unavailable Rich Barrett MD Unavailable [phone] Neil [place] MD Unavailable DesirDiana [facility] Unavailable Livan Sharif MD Unavailable Catherine Cm MD Unavailable + Valery Veronica PA-C Unavailable Brea Quinn APRN DIMENSIONAL ENGINEER Unavailable Brea Quinn THERAPEUTIC DIETITIAN DIMENSIONAL ENGINEER Unavailable Jose Francisco Johnson MD Unavailable Sydnie Martinez RN Unavailable Unavailable Alfonso Renteria MD Unavailable [phone] Esha Grimm PA-C Primary Care Provider [phone] Cheng Todd PA-C Unavailable Radha Lomeli APRN DIMENSIONAL ENGINEER Unavailable Jelena David OD Unavailable Pao Joseph RN Unavailable Unavailable Esha Grimm Adam PA-C Unavailable [phone] Valery Veronica PA-C Unavailable Rey Tay MD Unavailable Rocky Zepeda DO Unavailable Philip Dumont MD Unavailable Meredith Carrera PA-C Unavailable Neil Kent MD Unavailable Juan Pablo Emmanuel MD Unavailable Audrey Waite PA-C Unavailable JeremíasValery damon PA-C Unavailable Herminia Hacth MD Unavailable Jelena David OD Unavailable Juan Pablo Emmanuel MD Unavailable Maru Man PA-C Unavailable Maru Man PA-C Unavailable Jelena David OD Unavailable Encounter Details Date Type Department Care Team (Late st Contact Info) Description 06/17/2023 MyC Medical Advice [facility] [address], [address] [place] [address] Alfonso Renteria MD [address] [facility] [address] 200 [place] [address] Social History Tobacco Use [...] in an overnight halfway, or couch-surfing.) Yes 06/20/2023 Are you worried [...] CDT Legal Sex Female 4:13 AM DIRECTOR RETIREMENT Gender Identity Female 03/02/2021 5:45 PM CDT Sexual Orientation Straight 02/28/2020 12 :51 AM CDT documented as of this encounter Miscellaneous Notes * Telephone Encounter - Lulu Xie - 06/28/2023 12:08 PM CST Patient calling to follow up on the below [employer] message. Patient continues to have a lot of dizzyness and neck pain. CTOR RETIREMENT documented in this encounter Plan of Treatment Upcoming Encounters Date Type Department Care Team (Late st Contact Info) Description 11/21/2024 7:00 AM CDT Office Visit [facility] [address] [phone] Maru Man PA-C [address] [address] 12/20/2024 2:30 PM CDT Office Visit [address] [address] Esha Grimm PA-C [id number] [place] [address] 04/16/2025 11:00 AM CDT Virtual Visit [facility] Gastroenterology Clinic [address] [place] [phone] Meredith Carrera PA-C [address] [place] [address] documented as of this encounter Visit Diagnoses [...] Depression Total Score: 6 05/16/20 9:29 AM DIRECTOR RETIREMENT documented as of this encounter Care Teams School Cafeteria Head Cook Relationship Specialty Start Date End Date Esha Grimm PA-C [address] [place] [phone] PCP - General Family Medicine 05/04/23 Diana Desir, [facility] [address] [place] [address] Pharmacist Pharmacist 04/17/21 Rain Galaviz PA-C [address] [place] [address] [address] [facility] [facility] [place] [address] Physician Log Roller Dermatology 04/28/21 Tavia Wyatt MD [address] [place] [address] [address] [facility] [facility] [place] [address] Dermatology 07/14/21 Erica Farrell APRN DIMENSIONAL ENGINEER [address] [place], [place] 169105 Nurse Practitioner Cardiovascular Disease 09/09/21 Rich Barrett MD [address] [place] [address] Physician Ophthalmology 01/21/22 Neil Kent MD 500 [place], [place] 112195 Dermatology 02/24/22 Diana Desir, [facility] [address] [place] [address] Assigned MTM Pharmacist 04/07/22 Livan Sharif MD 6405 [facility] [address] [place] [address] Cardiovascular Disease 05/14/22 Catherine Cm MD [address] [facility] [address] [place] [address] Cardiovascular Disease 07/21/22 Valery Veronica PA-C [address] [place] [address] 753995 Physician Log Roller Dermatology 07/21/22 Brea Quinn APRN DIMENSIONAL ENGINEER [address] [place] [address] 903425 Nurse Practitioner Dermatology 09/21/22 Brea Quinn APRN DIMENSIONAL ENGINEER 6401 [place], [place] 586432 Assigned Surgical Provider 10/09/22 05/01/24 [place] [address] [facility] 300 [place] [address] Assigned Musculoskeletal Provider 10/09/22 05/01/24 Sydnie Martinez RN Personal Advocate & Liaison (PAL) Family Medicine 03/28/23 07/31/23 Alfonso Renteria MD 5775 [facility] 200 [place], [place] 219926 Assigned Neuroscience Provider 04/02/23 09/29/24 Cheng Todd PA-C [address] [place] [address] [phone] Assigned PCP 04/30/23 07/15/23 Radha Lomeli APRN CNP 6[address] [facility] [address] [place] [address] Assigned Heart and Vascular Provider 05/28/23 Jelena David OD 3305 [facility] [place] [address] MD Ophthalmology 06/15/23 Pao Joseph, VJ Personal Advocate & Liaison (PAL) Nurse 08/01/23 11/07/23 Esha Grimm PA-C [address] [place] [phone] Assigned PCP 07/16/23 Valery Veronica PA-C [address] [place] [address] 605235 Physician Log Roller Dermatology 09/19/23 Rey Tay MD [address] [place] [address] 068615 Gastroenterology 09/20/23 Rocky Zepeda DO [address] [place] [address] Physician Gastroenterology 09/20/23 Philip Dumont MD [address] [place] [address] 022865 Physician Ophthalmology 09/22/23 Meredith Carrera PA-C [address] [place] [address] Assigned Gastroenterology Provider 11/01/23 Neil [place] MD [address] [place] [address] Dermatology 11/02/23 [place] [address] [place] [address] Neurological Surgery 12/26/23 Audrey Waite PA-C [address] [place] [address] Physician Log Roller Dermatology 02/28/24 Valery Veronica PA-C 659993 [address] [place] [address] Physician Log Roller Dermatology 04/10/24 Herminia Hatch MD [address] [place] [address] [phone] Assigned Rheumatology Provider 07/02/24 Jelena David OD [address] [place] [address] [place] [address] Ophthalmology 08/30/24 [place] [address] [place] [address] Assigned Neuroscience Provider 09/30/24 Maru Man PA-C [address] [place] [address] Physician Log Roller Dermatology 10/03/24 Maru Man PA-C [address] [place] [address] Physician Log Roller Dermatology 10/22/24 Jelena David OD [address] [facility] [place] [address] Assigned Surgical Provider 10/31/24 documented as of this encounter
--- OUTSIDE RECORDS SUMMARY | 2024-11-21 05:19 | XMS_ITS | Encounter Summary ---
Author Organization [place] Address [address] [place] [address] Care Team Providers Care Relish Blender Name Role Phone Diana Desir [facility] Unavailable Rain GalavizC Unavailable [phone] Tavia Wyatt MD Unavailable Erica Farrell APRN PLY BANDER Unavailable Rich Barrett MD Unavailable [phone] Neil [place] MD Unavailable DesirKendrickDiana Stanislav [facility] Unavailable [phone] Livan Sharif MD Unavailable Catherine Cm MD Unavailable + Valery Veronica-C Unavailable Brea Quinn BASTER HAND PLY BANDER Unavailable [phone] Alfonso Renteria MD Unavailable [phone] Esha GrimmC Primary Care Provider Radha Lomeli BASTER HAND PLY BANDER Unavailable Jelena David OD Unavailable [place], Esha M PA-C Unavailable [phone] Valery Veronica PA-C Unavailable [phone] Rey Tay MD Unavailable Rocky Zepeda DO Unavailable Philip Dumont MD Unavailable Meredith Carrera PA-C Unavailable [phone] Neil Kent MD Unavailable Juan Pablo Emmanuel MD Unavailable [phone] Audrey Waite PA-C Unavailable [phone] Valery Veronica PA-C Unavailable Herminia Hatch MD Unavailable Jelena David OD Unavailable Juan Pablo Emmanuel MD Unavailable Maru Man PA-C Unavailable Maru Man PA-C Unavailable Jelena David OD Unavailable Encounter Details Date Type Department Care Team (Late st Contact Info) Description 06/06/2024 Orders Only [facility] [address] [place] [address] Outside, Provider Social History Tobacco Use Types [...] Score 1 02/07/2024 [facility] - Occupational Stress Questionnaire [...] exercise at this level? 20 min 05/07/2024 Homer Depression Scale Answer Date Recorded Homer [...] CDT Legal Sex Female 4:13 AM RUG CUTTER Gender Identity Female 03/02/2021 5:45 PM CDT Sexual Orientation Straight 02/28/2020 12 :51 AM CDT documented as of this encounter Plan of Treatment Upcoming Encounters Date Type Department Care Team (Late st Contact Info) Description 11/21/2024 7:00 AM CDT Office Visit [facility] [address] [phone] Maru Man PA-C [address] [address] 12/20/2024 2:30 PM CDT Office Visit [facility] [address] [place] [address] Esha Grimm PA-C [address] [place] [phone] 04/16/2025 11:00 AM CDT Virtual Visit [facility] Gastroenterology Clinic [address] 4th [place] [phone] Meredith Carrera PA-C [address] [place] [address] 081865 documented as of this encounter Procedures Procedure Name Priority Date/Time Associated Diagnosis Comments HLA RESULT REPORT 06/06/2024 2:04 PM RUG CUTTER documented in this encounter Results * HLA Result Report (06/06/2024 2:04 PM RUG CUTTER) us Provider Outside LAB - IMMUNOLOGY ORDERABLES [...] documented as of this encounter Care Teams Relish Blender Relationship Specialty Start Date End Date Esha Grimm PA-C [address] [place] [phone] PCP - General Family Medicine 05/04/23 Diana Desir, [facility] [address] [place] [address] Pharmacist Pharmacist 04/17/21 Rain Galaviz PA-C [address] [place] [address] [place] [address] [address] Safety Engineer Dermatology 04/28/21 Tavia Wyatt MD [address] [place] [address] DR RA[address] [facility] [id number] Dermatology 07/14/21 Erica Farrell APRN PLY BANDER [address] [place] 9[address]405 Nurse Practitioner Cardiovascular Disease 09/09/21 Rich Barrett MD [address] [place] 506295 Physician Ophthalmology 01/21/22 Neil Kent MD [address] [place] [address] 295775 Dermatology 02/24/22 [facility] 3033 [place], [place] 151526 Assigned [place] Pharmacist 04/07/22 Livan Sharif MD [address] [place] [address] Cardiovascular Disease 05/14/22 Catherine Cm MD [address] [place] 399265 Cardiovascular Disease 07/21/22 Valery Veronica, PA-C 909 [place], [place] 098195 Physician Highway Safety Engineer Dermatology 07/21/22 Brea Quinn APRN PLY BANDER [address] [place] [address] Nurse Practitioner Dermatology 09/21/22 Alfonso Renteria MD 5775 [facility] [address] 200 [place], [place] 872916 Assigned Neuroscience Provider 04/02/23 09/29/24 Radha Lomeli, BASTER HAND PLY BANDER 6405 [facility] [address] [place], [place] 352785 Assigned Heart and Vascular Provider 05/28/23 Jelena David OD 3305 [facility] [address] [place] [id number] MD Ophthalmology 06/15/23 Esha Grimm PA-C [address] [place] [phone] Assigned PCP 07/16/23 Valery Veronica PA-C [address] [place] [address] 690435 [address] Safety Engineer Dermatology 09/19/23 Rey Tay MD [address] [place] [address] 246305 Gastroenterology 09/20/23 Rocky Zepeda DO [address] [place] [address] 455725 Physician Gastroenterology 09/20/23 Philip Dumont MD [address] [place] [address] Physician Ophthalmology 09/22/23 Meredith Carrera PA-C [address] [place] [address] Assigned Gastroenterology Provider 11/01/23 Neil Kent MD [address] [place] [address] Dermatology 11/02/23 [place] [address] [place] [place] [address] Neurological Surgery 12/26/23 Audrey Waite PA-C [address] [place] [address] [address] Safety Engineer Dermatology 02/28/24 Valery Veronica PA-C 839726 [address] [place] [address] [address] [address] Safety Engineer Dermatology 04/10/24 Herminia Hatch MD [address] [place] [address] [phone] Assigned Rheumatology Provider 07/02/24 Jelena David OD [address] [place] [address] [place] [address] Ophthalmology 08/30/24 [place] [address] [place] [place] 0[address]227 Assigned Neuroscience Provider 09/30/24 Maru Man PA-C [address] [place] [address] [address] [address] Safety Engineer Dermatology 10/03/24 Maru Man PA-C [address] [place] [address] [address] Safety Engineer Dermatology 10/22/24 Jelena David OD [facility] [place] [address] Assigned Surgical Provider 10/31/24 documented as of this encounter
--- OUTSIDE RECORDS SUMMARY | 2024-11-21 05:19 | XMS_ITS | Encounter Summary ---
Author Organization [facility] Address [address] [place] [address] Care Team Providers Care Pipe Organ Installer Name Role Phone Diana Desir [facility] Unavailable Rain GalavizC Unavailable Tavia Wyatt MD Unavailable Erica Farrell APRN VICE PRESIDENT INTEGRATED Unavailable Rich Barrett MD Unavailable [phone] Neil Kent MD Unavailable DesirKendrickDiana Stanislav [facility] Unavailable [phone] Livan hSarif MD Unavailable Catherine Cm MD Unavailable + Valery Veronica-C Unavailable Brea Quinn [employer]ANGE [employer] VICE PRESIDENT INTEGRATED Unavailable [phone] Alfonso Renteria MD Unavailable [phone] Esha GrimmC Primary Care Provider Radha Lomeli [employer]ANGE [employer] VICE PRESIDENT INTEGRATED Unavailable Jelena David OD Unavailable [phone] [place], Esha M PA-C Unavailable [phone] Valery Veronica PA-C Unavailable [phone] Rey Tay MD Unavailable Rocky Zepeda DO Unavailable Philip Dumont MD Unavailable Meredith Carrera PA-C Unavailable Neil Kent MD Unavailable Juan Pablo Emmanuel MD Unavailable [phone] Audrey Waite PA-C Unavailable Valery Veronica PA-C Unavailable [phone] Herminia Hatch MD Unavailable Jelena David OD Unavailable [phone] Juan Pablo Emmanuel MD Unavailable [phone] Maru Man PA-C Unavailable Maru Man PA-C Unavailable Jelena David OD Unavailable Encounter Details Date Type Department Care Team (Late st Contact Info) Description 06/05/2024 MyC Medical Advice [facility] Specialty [address] [address] Herminia Hatch MD [facility] [place], [place] [phone] Social History Tobacco Use Types Packs/Day Years [...] PHQ-2 Score 1 02/07/2024 [employer] [facility] - [...] exercise at this level? 20 min 05/07/2024 [place] Depression Scale Answer Date Recorded [place] Depression Score 5 01/14/2021 Last EPDS [...] Description 11/21/2024 7:00 AM CDT Office Visit [facility] [address] [phone] Maru Man PA-C [address] [place] [address] [phone] 12/20/2024 2:30 PM CDT Office Visit [facility] [address] [place] [phone] Esha Grimm PA-C [address] [place] [address] 04/16/2025 11:00 AM CDT Virtual Visit [facility] [address] [place] [phone] Meredith Carrera PA-C [address] [place] [address] [phone] documented as of this encounter Visit Diagnoses Not on filedocumented in this encounter Additional Health Concerns Infection Onset Date Last Indicated Resolved Time Rule Out COVID-19 10/04/2024 10/04/2024 10/05/2024 9:42 AM CDT Rule Out COVID-19 11/20/2024 11/20/2024 Assessment Noted Time PHQ-9 Depression Total Score: 3 02/07/20 24 9:33 AM CDT documented as of this encounter Care Teams Pipe Organ Installer Relationship Specialty Start Date End Date Esha Grimm PA-C [address] [place] [address] PCP - General Family Medicine 05/04/23 Diana Desir, [facility] [facility] [place] [address] Pharmacist Pharmacist 04/17/21 Rain Galaviz PA-C [address] [place] [address] [address] [place] [address] Physician Agile Scrum Master Dermatology 04/28/21 Tavia Wyatt MD [address] [place] [address] [address] [place] [address] Dermatology 07/14/21 Erica Farrell APRN VICE PRESIDENT [employer]GR[employer] [address] [place] 257[address] Nurse Practitioner Cardiovascular Disease 09/09/21 Rich Barrett MD [address] [place], [place] 0[address] Physician Ophthalmology 01/21/22 Neil Kent MD 500 [place], [place] 047595 Dermatology 02/24/22 [facility] [address] [place] [address] Assigned MTM Pharmacist 04/07/22 Livan Sharif MD [address] [address] Cardiovascular Disease 05/14/22 Catherine Cm MD [address] [address] Cardiovascular Disease 07/21/22 Valery Veronica, PA-C [address] [place] [address] 752905 Physician Agile Scrum Master Dermatology 07/21/22 Brea Quinn APRN VICE PRESIDENT INTEGRATED [address] [place] [address] [phone] Nurse Practitioner Dermatology 09/21/22 Alfonso Renteria MD [address] [facility] [address] [place] [address] Assigned Neuroscience Provider 04/02/23 09/29/24 Radha Lomeli APRN VICE PRESIDENT INTEGRATED [address] [facility] [address] [place] [address] Assigned Heart and Vascular Provider 05/28/23 Jelena David OD [address] [facility] [place] [address] MD Ophthalmology 06/15/23 Esha Grimm PA-C [address] [place] [phone] Assigned PCP 07/16/23 Valery Veronica PA-C [address] [place] [address] 204295 Physician Agile Scrum Master Dermatology 09/19/23 Rey Tay MD [address] [place] [address] 934355 Gastroenterology 09/20/23 Rocky Zepeda DO [address] [place] [address] 103755 Physician Gastroenterology 09/20/23 Philip Dumont MD [address] [place] [address] [phone] Physician Ophthalmology 09/22/23 Meredith Carrera PA-C 909 [place] [address] Assigned Gastroenterology Provider 11/01/23 Neil Kent MD [address] [place] [address] Dermatology 11/02/23 [place] [address] [place], [place] 394927 Neurological Surgery 12/26/23 Audrey Waite PA-C 500 [place] [address] Physician Agile Scrum Master Dermatology 02/28/24 Valery Veronica PA-C 327508 [address], [place] 350[address] Physician Agile Scrum Master Dermatology 04/10/24 Herminia Hatch MD [facility] [place], [place] [phone] Assigned Rheumatology Provider 07/02/24 Jelena David OD [address] [facility] [place] [address] Ophthalmology 08/30/24 [place] [address] [place] [address] Assigned Neuroscience Provider 09/30/24 Maru Man PA-C [address] [place] [address] Physician Agile Scrum Master Dermatology 10/03/24 Maru Man PA-C [address] [place] [address] Physician Agile Scrum Master Dermatology 10/22/24 Jelena David OD [address] [place] [address] [place] [address] Assigned Surgical Provider 10/31/24 documented as of this encounter
--- OUTSIDE RECORDS SUMMARY | 2024-11-21 05:19 | XMS_ITS | Encounter Summary ---
Author Organization [facility] Address [address] [place] [address] Care Team Providers Care Carrier Loader Name Role Phone Diana Desir [facility] Unavailable Rain Galaviz PA-C Unavailable Tavia Wyatt MD Unavailable Erica Farrell APRN WASTE RECLAIMER Unavailable Rich Barrett MD Unavailable [phone] Neil Kent MD Unavailable DesirDiana [facility] Unavailable Livan Sharif MD Unavailable Catherine Cm MD Unavailable + Valery Veronica PA-C Unavailable Brea Quinn APRN WASTE RECLAIMER Unavailable Brea Quinn SUPERVISOR ELECTRON TUBE PROCESSING WASTE RECLAIMER Unavailable Jose Francisco Johnson MD Unavailable Sydnie Martinez RN Unavailable Unavailable Alfonso Renteria MD Unavailable [phone] Esha Grimm PA-C Primary Care Provider Cheng Todd PA-C Unavailable Radha Lomeli APRN WASTE RECLAIMER Unavailable Jelena David OD Unavailable Pao Joseph RN Unavailable Unavailable Esha Grimm Adam PA-C Unavailable [phone] Valery Veronica PA-C Unavailable Rey Tay MD Unavailable Rocky Zepeda DO Unavailable Philip Dumont MD Unavailable Meredith Carrera PA-C Unavailable Neil Kent MD Unavailable Juan Pablo Emmanuel MD Unavailable Adurey Waite PA-C Unavailable JeremíasValery damon PA-C Unavailable Herminia Hatch MD Unavailable Jelena David OD Unavailable Juan Pablo Emmanuel MD Unavailable Maru Man PA-C Unavailable Maru Man PA-C Unavailable Jelena David OD Unavailable Encounter Details Date Type Department Care Team (Late st Contact Info) Description 07/06/2023 MyC Medical Advice [facility] [address], [address] [place] [address] Alfonso Renteria MD [address] [facility] [address] [place] [address] Social History Tobacco Use Types [...] 06/20/2023 [facility] Occup[facility] [...] exercise at this level? 30 min 03/10/2023 [place] Depression Scale Answer Date Recorded [place] Depression Score 5 01/14/2021 Last EPDS Self [...] PM CDT Legal Sex Female 4:13 AM MARINE RESOURCE ECONOMIST Gender Identity Female 03/02/2021 5:45 PM CDT Sexual Orientation Straight 02/28/2020 12 :51 AM CDT documented as of this encounter Miscellaneous Notes * Telephone Encounter - Genny Hyman PA-C - 07/07/2023 11:13 AM MARINE RESOURCE ECONOMIST No lesions/abnormal findings on MRI to account for possible seizure activity. Last office note indicated: If repeat MRI was normal would reduce levetiracetam to 250 mg per day for two weeks and then stop. Ok to proceed with this plan. Call if questions, concerns, or worsening of symptoms with discontinuation of the medication Genny Hyman PA-C NE RESOURCE ECONOMIST documented in this encounter Plan of Treatment Upcoming Encounters Date Type Department Care Team (Late st Contact Info) Description 11/21/2024 7:00 AM CDT Office Visit [facility] [address] [phone] Maru Man PA-C [address] [address] 12/20/2024 2:30 PM CDT Office Visit [facility] [address] [place] [phone] Esha Grimm PA-C [address] [place] [address] 04/16/2025 11:00 AM CDT Virtual Visit [facility] [address] [place] [phone] Meredith Carrera PA-C [address] [place] [address] documented as of this encounter Visit Diagnoses [...] Total Score: 4 06/20/20 23 8:40 AM MARINE RESOURCE ECONOMIST documented as of this encounter Care Teams Carrier Loader Relationship Specialty Start Date End Date Esha Grimm PA-C [address] [place] [phone] PCP - General Family Medicine 05/04/23 Diana Desir, [facility] [address] [place] [address] Pharmacist Pharmacist 04/17/21 Rain Galaviz PA-C [address] [place] [address] [address] [place] [address] Physician Workers Compensation Examiner Dermatology 04/28/21 Tavia Wyatt MD [address] [place] [address] [address] [facility] [place] [address] Dermatology 07/14/21 Erica Farrell APRN WASTE RECLAIMER [address] [place] [address] Nurse Practitioner Cardiovascular Disease 09/09/21 Rich Barrett MD [address] [place] [address] Physician Ophthalmology 01/21/22 Neil Kent MD 500 [place] [address] Dermatology 02/24/22 [facility] 3033 [place] [address] Assigned MTM Pharmacist 04/07/22 Livan Sharif MD [address] [facility] [address] [facility] [address] [place] [address] Cardiovascular Disease 05/14/22 Catherine Cm MD [address] [place], [place] 0533[address] Cardiovascular Disease 07/21/22 Valery Veronica, PA-C [address] [place] [address] 135425 Physician Workers Compensation Examiner Dermatology 07/21/22 Brea Quinn APRN WASTE RECLAIMER 500 [place], [place] 848385 Nurse Practitioner Dermatology 09/21/22 Brea Quinn APRN WASTE RECLAIMER [address] [place] [address] Assigned Surgical Provider 10/09/22 05/01/24 [place] [address] [place] [facility] 300 [place] [address] Assigned Musculoskeletal Provider 10/09/22 05/01/24 Sydnie Martinez RN Personal Advocate & Liaison (PAL) Family Medicine 03/28/23 07/31/23 Alfonso Renteria MD [address] [facility] 200 [place], [place] 959166 Assigned Neuroscience Provider 04/02/23 09/29/24 Cheng Todd PA-C [address] [place] [address] [phone] Assigned PCP 04/30/23 07/15/23 Radha Lomeli APRN WASTE RECLAIMER [address] [facility] [address] [place] [address] Assigned Heart and Vascular Provider 05/28/23 Jelena David OD [address] [facility] [place] [address] Ophthalmology 06/15/23 Pao Joseph, VJ Personal Advocate & Liaison (PAL) Nurse 08/01/23 11/07/23 Esha Grimm PA-C [address] [place] [address] Assigned PCP 07/16/23 Valery Veronica PA-C [address] [place] [address] 134985 Physician Workers Compensation Examiner Dermatology 09/19/23 Rey Tay MD [address] [place] [address] 234735 Gastroenterology 09/20/23 Rocky Zepeda DO [address] [place] [address] 064745 Physician Gastroenterology 09/20/23 Philip Dumont MD [address] [place] [address] Physician Ophthalmology 09/22/23 Meredith Carrera PA-C [address] [place] [address] Assigned Gastroenterology Provider 11/01/23 Neil Kent MD [address] [address] Dermatology 11/02/23 [place] [address] [place] [address] Neurological Surgery 12/26/23 Audrey Waite PA-C 500 [place] [address] Physician Workers Compensation Examiner Dermatology 02/28/24 Valery Veronica PA-C [address]256 [address] [place] [address] Physician Workers Compensation Examiner Dermatology 04/10/24 Herminia Hatch MD [address] [place] [address] [phone] Assigned Rheumatology Provider 07/02/24 [place] [address] [place] [address] [place] [address] Ophthalmology 08/30/24 [place] [address] [place] [address] Assigned Neuroscience Provider 09/30/24 Maru Man PA-C [address] [place] [address] Physician Workers Compensation Examiner Dermatology 10/03/24 Maru Man PA-C [address] [place] [address] Physician Workers Compensation Examiner Dermatology 10/22/24 Jelena David OD [address] [place] [address] [place] [address] Assigned Surgical Provider 10/31/24 documented as of this encounter
[2024-11-21] MEDS: 0.9 % SODIUM CHLORIDE 1000 ml 1,000 ML IV (05:26)
[2024-11-21 05:27] LABS: Basophils Absolute Auto 0.02 K/uL (0.00-0.30); Basophils Percent Auto 0.4 % (0.0-3.0); Eosinophils Absolute Auto 0.14 K/uL (0.00-0.50); Eosinophils Percent Auto 2.5 % (0.0-7.0); Hematocrit 37.6 % (33.0-51.0); Immature Granulocytes Abs Auto 0.01 K/uL (0.00-0.30); Immature Granulocytes Pct Auto 0.2 %; Lymphocytes Percent Auto 14.7 % (20-44); Mean Corpuscular HGB Conc 32 gm/dL (32-36); Mean Corpuscular Hemoglobin 26 pg (26-34); Mean Corpuscular Volume 80 fL (80-100); Monocytes Percent Auto 7.6 % (0.0-11.0); Neutrophils Percent Auto 74.6 % (42.0-72.0); Platelet Count* 186 K/uL (140-440); RDW Coefficient of Variation % 13.7 % (11.5-15.5); Red Blood Count 4.71 m/uL (4.00-5.20); White Blood Count* 5.56 K/uL (4.50-11.00)
[2024-11-21 05:28] LABS: Appearance Urine Clear (Clear); Bilirubin Urine Negative (Negative); Blood Urine Negative (Negative); Color Urine Yellow (Yellow); Glucose Urine Negative (Negative); Ketones Urine Negative (Negative); Leukocyte Esterase Urine Negative (Negative); Nitrite Urine Negative (Negative); Protein Urine Negative (Negative); Urobilinogen Urine 0.2 (0.2-1.0); pH Urine 7.5 (5.0-8.5)
[2024-11-21 05:30] LABS: Slide Review Reflex No
[2024-11-21 05:42] LABS: Chloride* 104 mmol/L (96-114); Potassium* 3.9 mmol/L (3.6-5.1); Sodium* 137 mmol/L (135-149)
[2024-11-21 05:45] LABS: Anion Gap 9 mEq/L (7-15); Blood Urea Nitrogen* 14 mg/dL (5-24); Calcium* 9.1 mg/dL (8.4-10.6); Carbon Dioxide* 24 mmol/L (20-32); Creatinine* 0.8 mg/dL (0.5-1.5); Est. Creatinine Clearance* 101.51; Estimated Glomerular Filt Rate 105 ml/min; Glucose* 95 mg/dL (60-115)
[2024-11-21 05:48] LABS: C Reactive Protein* 0.8 mg/dL (0.5-1.0)
[2024-11-21 05:54] VITALS: PULSE 93; RESP 16; O2SAT 96
[2024-11-21 05:58] LABS: PCR FLU A Negative PCR FLU A (Negative); PCR FLU B POSITIVE PCR FLU B (Negative); PCR RSV Negative PCR RSV (Negative); SARS PCR* Negative SARS-CoV-2 (Negative)
[2024-11-21 05:58] LABS: Strep A DNA Probe* NOT DETECTED (Not Detectd)
== END 2024-11-21 06:10 | disposition home or self-care (01) ==
PROVIDERS: Emergency Provider Family Medicine
DX: J10.1 Influenza due to other identified influenza virus with other respiratory manifestations (principal); R50.9 Fever, unspecified
CPT/HCPCS: 36415; 80048; 81003; 83605; 84484; 85025; 86140; 87631; 87651; 93005; 96360; 99283; 99284; A9270; J7030

== ENCOUNTER 2024-12-17 21:33 | Emergency (ER) | payer MEDICAID, SELFPAY ==
--- OUTSIDE RECORDS SUMMARY | 2024-11-02 07:45 | XMS_ITS | Encounter Summary ---
Author Organization [facility] Address [address] [place] [address] Care Team Providers Care [employer] Programmer Name Role Phone Diana Desir Stanislav [facility] Unavailable Rain Galaviz PA-C Unavailable [phone] Tavia Wyatt MD Unavailable Erica Farrell APRN HOME ENERGY CONSULTANT Unavailable Rich Barrett MD Unavailable [phone] Neil Kent MD Unavailable ThangKendrickDiana Stanislav [facility] Unavailable [phone] Livan Sharif MD Unavailable Catherine Cm MD Unavailable + Valery Veronica-C Unavailable Brea Quinn APRN HOME ENERGY CONSULTANT Unavailable Esha Grimm PA-C Primary Care Provider Radha Lomeli APRN HOME ENERGY CONSULTANT Unavailable Jelena David OD Unavailable Esha Grimm PA-C Unavailable [phone] Valery Veronica PA-C Unavailable Rey Tay MD Unavailable Rocky Zepeda DO Unavailable Philip Dumont MD Unavailable [phone] Meredith Carrera PA-C Unavailable [phone] Neil Kent MD Unavailable Juan Pablo Emmanuel MD Unavailable [phone] Audrey Waite PA-C Unavailable [phone] Valery Veronica PA-C Unavailable [phone] Herminia Hatch MD Unavailable Jelena David OD Unavailable [phone] Juan Pablo Emmanuel MD Unavailable [phone] Maru Man-C Unavailable [phone] Maru Man-C Unavailable [phone] Jelena Daivd OD Unavailable Reason for Referral * Consultation (Routine: Next available opening) - Pending Review Specialty Diagnoses / Procedures Referred By Qian mayers Referred To Contact Gastroenterology Diagnoses Eosinophilic esophagitis Meredith Carrera PA-C [address] [place] [address] Phone: tel: fax: Referral ID Status Reason Start Date Expiration Date V isits Requested Visits Authorized [id number] Pending Review 11/02/2024 11/02/2025 [address] Zepeda/Dr. Zimmerman Please schedule EGD w/ MAC and possible dilation. Question Answer Service: Upper Endoscopy Upper Endoscopy Type: EGD Sedation Concerns: No medical conditions affecting sedation Sedation Type: Moderate/Conscious Sedation Reason for Upper Endoscopy: EGD MAC Dr. Zepeda/Dr. Zimmerman. History of EOE. Now on dairy elimination only per pt request. Please obtain >4 distal and >4 proximal biopsies collected in seperate jars as well as duodenal biopsies for celiac and gastric biopsies for H Pylori Preferred Location: [facility] Patient Scheduling Instructions: [facility] will call you to coordinate your care as prescribed by the provider. If you don t hear from a accounting representative within 2 business days, please call . Comments Please be aware that coverage of these services is subject to the terms and limitations of your health insurance plan. Call member services at your health plan with any benefit or coverage questions. [facility] will call you to coordinate your care as prescribed by the provider. If you don t hear from a accounting representative within 2 business days, please call . * Nutrition (Routine: Next available opening) - Pending Review Specialty Diagnoses / Procedures Referred By Qian t Referred To Contact Gastroenterology Diagnoses Eosinophilic esophagitis Meredith Carrera PA-C [address] [place] [address] Phone: tel: fax: [place], RD [address] [place] [address] Phone: tel: fax: Referral ID Status Reason Start Date Expiration Date V isits Requested Visits Authorized [id number] Pending Review 11/02/2024 11/02/2025 1 1 Question Answer Type of nutritional instruction needed? GI Concern Patient Scheduling Instructions: EoE, constulation to discuss elimination diet for EoE. Pt wishes to eliminate dairy only. Comments Please be aware that coverage of these services is subject to the terms and limitations of your health insurance plan. Call member services at your health plan with any benefit or coverage questions. EoE, constulation to discuss elimination diet for EoE. Pt wishes to eliminate dairy only. Reason for Visit * Reason Comments RECHECK Encounter Details Date Type Department Care Team (Latest Contact Info) Description 11/02/2024 7:45 AM CDT Virtual Visit [facility] [address] [place] [address] Meredith Carrera PA-C [address] [place] [address] Bloating symptom (Primary Dx); Irregular bowel habits; Eosinophilic esophagitis Social History Tobacco Use Types Packs/Day Years [...] PHQ-2 Answer Date Recorded PHQ-2 Score 1 10/24/2024 [place] [employer] [facility] - Occupational Stress [...] exercise at this level? 20 min 05/07/2024 [place] Depression Scale Answer Date Recorded [place] [...] permanent housing and does not include staying outside in a car, in a tent, in [...] PM CDT Legal Sex Female 4:13 AM [employer] Gender Identity Female 03/02/2021 5:45 PM CDT Sexual Orientation Straight 02/28/2020 12 :51 AM CDT documented as of this encounter Patient Instructions * Patient Instructions* Meredith Carrera PA-C - 11/02/2024 7:45 AM CDT It was a pleasure meeting with you today and discussing your healthcare plan. Below is a summary ofwhat we covered: Our plan discussed today will be to obtain follow up with [facility] [place] mental health worker and initiate a dairy free diet with repeat endoscopy in 8 - 12 weeks time to assess for histologic response. - Labs and stool studies to be obtained today. If negative and failed modified low FODMAPs diet could consider breath testing for SIBO/IMO vs fructose intolerance - Trial of Simethicone (over the counter) 80 mg - 125 mg which can be used up to 4 times daily as needed after meals and at bedtime. Please do not exceed a maximum daily dose of 500 mg/day - Various probiotics that I would recommend include: Culturelle, Florastar or VSL - 3. Bloating Lifestyle Modifications: -- Patients are advised to have regular meal patterns, avoid large meals, reduce intake of insoluble fibers/fat/caffeine as well as alcohol -- Avoidance of artificial sweeteners including sorbitol, truvia, maltitol, mannitol, xylitol, glycerol and lactilol. -- With increased GI concerns please discontinue all coffee/caffine and carbonated beverages -- Studies have shown that following an IBS diet or exclusion of high gas producing foods has a significant impact on symptoms. Foods that have been shown to increase bloating/distension/flatulence include beans, cabbage, onions, celery, carrots, raisins, etc. Significant symptomatic improvement has been seen in patients who adhere to a low fermentable oligo-, di-, and monosaccharides and polyols(FODMAPs) diet. Please review this link regarding a low FODMAP diet provided by the [facility]:[email or web address] -- Many patients do benefit from discussion with a registered nurse maternity to discuss these dietary options -- Attempt to make lifestyle changes to limit aerophagia (swallowing of air) which consists of elimination of carbonated beverages, straws, gum and hard candy. As well attempt to eat slow and avoid gulping/eating fast. -- Recommend an increase in physical activity/exercise. Multiple studies regarding bloating have shown that an increase in physical activity can improve symptoms. Please start by walking 10 minutes three times daily Please call my nurse Desmond ([phone]) or Damaris ([phone] ) with any questions or concerns. See below for any additional questions and scheduling guidelines. Sign up for [employer]: [employer] patient portal serves as a secure platform for accessing your medical records from the [facility]. Additionally, [employer] facilitates easy, timely, and securemessaging with your care team. If you have not signed up, you may do so by using the provided code or calling [phone]. Coordinating your care after your visit: There are multiple options for scheduling your follow-up care based on your provider's recommendation. How do I schedule a follow-up clinic appointment: After your appointment, you may receive scheduling assistance with the Clinic Coordinators by having a seat in the waiting room and a Diagrammer will call you up to schedule. Virtual visits or after you leave the clinic: Your provider has placed a follow-up order in the [employer] portal for scheduling your return appointment. A member of the scheduling team will contact you to schedule. [employer] Scheduling: Timely scheduling through [employer] is advised to ensure appointment availability. Call to schedule: You may schedule your follow-up appointment(s) by calling [phone], option 1. How do I schedule my endoscopy or colonoscopy procedure: If a procedure, such as a colonoscopy or upper endoscopy was ordered by your provider, the scheduling team will contact you to schedule this procedure. Or you may choose to call to schedule at [phone], option 2. Please allow 20-30 minutes when scheduling a procedure. How do I get my blood work done? To get your blood work done, you need to schedule a lab appointment at an [facility]. There are multiple ways to schedule: At the clinic: The Diagrammer you meet after your visit can help you schedule a lab appointment. MyChart scheduling: [employer] offers online lab scheduling at all [facility] laboratory locations. Call to schedule: You can call [phone] to schedule your lab appointment. How do I schedule my imaging study: To schedule imaging studies, such as CT scans, ultrasounds, MRIs, or X-rays, contact Imaging Services at [phone]. How do I schedule a referral to another doctor: If your provider recommended a referral to another specialist(s), the referral order was placed by your provider. You will receive a phone call to schedule this referral, or you may choose to call the number attached to the referral to self-schedule. For Post-Visit Question(s): For any inquiries following today's visit: Please utilize [employer] messaging and allow 48 hours for reply or contact the Call Center during normal business hours at [phone], option 3. For Emergent After-hours questions, contact the On-Call GI Fellow through the [facility] at . In addition, you may contact your Nurse directly using the provided contact information. Test Results: Test results will be accessible via [employer] in compliance with the [employer]. This means that your results will be available to you at the same time as your provider. Oftenyou may see your results before your provider does. Results are reviewed by staff within two weeks with communication follow-up. Results may be released in the patient portal prior to your care team review. Prescription Refill(s): Medication prescribed by your provider will be addressed during your visit.For future refills, please coordinate with your pharmacy. If you have not had a recent clinic visitor routine labs, for your safety, your provider may not be able to refill your prescription. Clinic Sincerely, Meredith Carrera PA-C Division of Gastroenterology, Hepatology, and Nutrition [facility] documented in this encounter Progress Notes * Meredith Carrera PA-C - 11/02/2024 7:45 AM CDT Images from the original note were not included. Virtual Visit Details Type of service: Video Visit Video Start Time: 7:50 AM Video End Time:8:11 AM Originating Location (pt. Location): Home Distant Location (provider location): On-site Platform used for Video Visit: [facility] Gastroenterology Visit for: Kim Johnson 2000 Reason for Visit: chief complaint Referred by: Jasvir / Mar [facility] [address] Patient Care Team: Esha Grimm PA-C as PCP - General (Family Medicine) Diana Desir RPH as Pharmacist (Pharmacist) Rain Galaviz PA-C as Physician Technical Administrator (Dermatology) Tavia Wyatt MD as MD (Dermatology) Erica Farrell APRN HOME ENERGY CONSULTANT as Nurse Practitioner (Cardiovascular Disease) Rich Barrett MD as Physician (Ophthalmology) Neil Kent MD as MD (Dermatology) Diana Desir RP as Assigned MTM Pharmacist Livan Sharif MD as MD (Cardiovascular Disease) Catherine Cm MD as MD (Cardiovascular Disease) Valery Veronica PA-C as Physician Technical Administrator (Dermatology) Brea Quinn APRN HOME ENERGY CONSULTANT as Nurse Practitioner (Dermatology) Radha Lomeli APRN HOME ENERGY CONSULTANT as Assigned Heart and Vascular Provider Jelena David OD as MD (Ophthalmology) Esha Grimm PA-C as Assigned PCP Valery Veronica PA-C as Physician Technical Administrator (Dermatology) Rey Tay MD as (Gastroenterology) Rocky Zepeda DO as Physician (Gastroenterology) Philip Dumont MD as Physician (Ophthalmology) Meredith Carrera PA-C as Assigned Gastroenterology Provider Neil Kent MD as (Dermatology) Juan Pablo Emmanuel MD as MD (Neurological Surgery) Audrey Waite PA-C as Physician Technical Administrator (Dermatology) Valery Veronica PA-C as Physician Technical Administrator (Dermatology) Herminia Hatch MD as Assigned Rheumatology Provider Jelena David OD as MD (Ophthalmology) Juan Pablo Emmanuel MD as Assigned Neuroscience Provider Maru Man PA-C as Physician Technical Administrator (Dermatology) Maru Man PA-C as Physician Technical Administrator (Dermatology) Jelena David OD as Assigned Surgical Provider History of Present Illness: Kim Johnson is a 23 year old female with significant past medical history pertinent for anxiety,depression, psoriasis, seizure disorder, asthma, Paroxysmal SVT, CYP2C9 intermediate metabolizer, who is presenting as a new patient Dr. Tay with a chief complaint of irregular bowel patterns and fla tulence. Interval History November 02, 2024: 04/07/2024 ER evaluation for acute alcohol intoxication and palpitations 08/27/2024 ER evaluation for palpitations 10/28/2024 ER evaluation for acute chest pain Dysphagia - I have came to the conclusion if it is based upon if I eat dairy or not. Solid dysphagia is described as intermittent. Bowel Patterns - Continues to report flatulence which is foul smelling. Now reports constant abdominal bloating and continued flatulence again which is foul smelling. Explaining I don't think I havea good digestive system. Bowel patterns are occurring daily consistent with [place] Stool Scale Type 4/5. Described as 50/50between the two. 1 serving of fruit per day and vegetables 2 servings per day. Did not trial daily fiber supplementation. Denies weight loss, early satiation, early satiety, diarrhea, constipation (< 3 stools per week), incontinence of feces, nocturnal stooling, change in bowel patterns, melena, hematochezia and BRBR. Sister has Crohn's disease. HPI 10/2023 Reports onset of reflux symptoms [...] Questionnaire 10/06/2023 12:19 AM 10/12/2023 1:54 PM 08/06/2024 12:08 PM BEDQ Questionnaire: How Often Have You Had the Following? Trouble eating solid food (meat, bread, vegetables) 3 3 1 Trouble eating soft foods (yogurt, jello, pudding) 0 1 0 Trouble swallowing liquids 0 0 0 Pain while swallowing 2 1 1 Coughing or choking while swallowing foods or liquids 0 0 0 Total Score: 5 5 2 Patient-reported 10/06/2023 12:19 AM 10/12/2023 1:54 PM 08/06/2024 12:08 PM BEDQ Questionnaire: Discomfort/Pain Ratings Eating solid food (meat, bread, vegetables) 2 2 2 Eating soft foods (yogurt, jello, pudding) 0 1 0 Drinking liquid 0 1 1 Total Score: 2 4 3 Patient-reported Eckardt Questionnaire 10/06/2023 12:21 AM 10/12/2023 1:56 [...] Psoriasis Seizure (H) 05/02/2019 no seizure since 2018 SVT (supraventricular tachycardia) Past Surgical History: Procedure Laterality Date EP ABLATION SVT N/A 08/28/2021 Procedure: EP Ablation SVT; Surgeon: Galo Burrell MD; Location: [facility]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 Comment: Im getting the IUD March 12 2021 Other Topics Concern Parent/sibling w/ CABG, [place] or angioplasty before 65F 55M? No Social [...] 20 min Stress: Stress Concern Present (05/07/2024) [place] [employer]ational Health - Occupational Stress Questionnaire Feeling of Stress : To some extent Social Connections: Moderately Isolated (05/07/2024) Social Connection and Isolation Panel [NHANES] Frequency of Communication with Friends and Family: Three times a week Frequency of Social Gatherings with Friends and Family: Once a week Attends Jain Services: 1 to 4 times per year [...] and Allergies: Outpatient Encounter Medications as of 11/02/2024 Medication Sig Dispense Refill clindamycin (CLEOCIN T) [...] PO) omeprazole (PRILOSEC) [address] capsule Take 1 capsule (40 mg) by mouth daily. 90 capsule 2 PARoxetine (PAXIL) 40 MG tablet Take 1 tablet (40 mg) by mouth every morning. NEED APPT FOR FURTHERREFILLS. 30 tablet 1 Probiotic Product (PROBIOTIC BLEND PO) [...] until healed then stop 80 g 0 Facility-Administered Encounter Medications as of 11/02/2024 Medication Dose Route Frequency Provider Last Rate Last Admin sodium chloride (PF) 0.9% PF flush 3 mL 3 mL Intravenous q1 min prn Fady Menon MD Allergies Allergen Reactions Vancomycin Review of systems: A full 10 point review of systems was obtained and was negative except for the pertinent positives and negatives stated within the HPI. Objective Findings: Physical Exam: Constitutional: LMP (LMP Unknown) General: Alert, cooperative, no distress, well-appearing Head: Atraumatic, normocephalic, no obvious abnormalities Eyes: Sclera anicteric, no obvious conjunctival hemorrhage Nose: Nares normal, no obvious malformation, no obvious rhinorrhea Respiratory: Resting comfortably, no apparent distress, no cough. Skin: No jaundice, no obvious rash Neurologic: AAOx3, no obvious neurologic abnormality Psychiatric: Normal Affect, appropriate mood Extremities: No obvious edema, no obvious malformation Labs, Radiology, Pathology Lab Results Component Value Date WBC 6.6 10/28/2024 WBC 8.7 08/27/2024 WBC 7.8 05/08/2024 HGB 12.2 10/28/2024 HGB 11.7 08/27/2024 HGB 12.3 05/08/2024 PLT 234 10/28/2024 PLT 252 08/27/2024 PLT 263 05/08/2024 CHOL 189 05/08/2024 CHOL 180 03/10/2023 CHOL 203 (H) 04/02/2021 TRIG 155 (H) 05/08/2024 TRIG 61 03/10/2023 TRIG 86 04/02/2021 HDL 43 (L) 05/08/2024 HDL 50 03/10/2023 HDL 39 (L) 04/02/2021 ALT 20 05/08/2024 ALT 22 12/21/2023 ALT 30 10/27/2023 AST 16 05/08/2024 AST 21 12/21/2023 AST 19 10/27/2023 NA 137 10/28/2024 NA 137 08/27/2024 NA 137 05/08/2024 BUN 17.3 10/28/2024 BUN 12.9 08/27/2024 BUN 15.0 05/08/2024 CO2 23 10/28/2024 CO2 23 08/27/2024 CO2 25 05/08/2024 TSH 3.02 11/04/2023 TSH 2.53 07/14/2023 TSH 4.56 (H) 06/28/2023 Liver Function Studies - Recent Labs Lab Test 03/15/23 0941 PROTTOTAL 7.5 ALBUMIN 4.6 BILITOTAL 0.3 ALKPHOS 54 AST 22 ALT 26 Patient Active Problem List Diagnosis Date Noted Other ventricular tachycardia (H) 05/08/2024 Priority: Medium Paroxysmal supraventricular tachycardia 08/28/2021 Priority: Medium SVT (supraventricular tachycardia) 08/28/2021 Priority: Medium Encounter for pharmacogenetic testing 04/17/2021 Priority: Medium 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 04/17/2021 Priority: Medium Intermediate Response CYP2C9 intermediate metabolizer (H) 04/17/2021 Priority: Medium Moderate major depression (H) 03/03/2021 Priority: Medium KALYN (generalized anxiety disorder) 09/29/2020 Priority: Medium Right ureteral stone 05/27/2020 Priority: Medium Added automatically from request for surgery [id number] Left ureteral stone 05/27/2020 Priority: Medium Added automatically from request for surgery [id number] Head ache 02/18/2020 Priority: Medium Seizure (H) 05/02/2019 Priority: Medium Depressed 05/02/2019 Priority: Medium Anxiety 05/02/2019 Priority: Medium Tobacco abuse counseling 05/02/2019 Priority: Medium Psoriasis 05/02/2019 Priority: Medium Assessment and Plan Assessment/Plan: Kim Johnson is a 23 year old female with significant past medical history pertinent for anxiety,depression, psoriasis, seizure disorder, asthma, Paroxysmal SVT, CYP2C9 intermediate metabolizer, who is presenting as a new patient Dr. Tay with a chief complaint of irregular bowel patterns and fla tulence. #EoE #Hiatal Hernia - 3 cm EGD 09/12/2023 EREFS [id number]. Additional findings were notable for 3 cm [...] Inessa WD, Yoli BMR. Am J Gastroenterol 2020;115:1718-9737).This was discussed with the patient in detail. The quality of research studies was described (retrospective vs prospective). Data from recent review article provided (Duane MCGOWAN, John PO. Proton Pump Inhibitors in 2020: Pros, Cons, and Everything in Between. Foregut. November 2020. Doi:10.1177/[id number]). The value of joint decision making was [...] plan discussed today will be to obtain follow up with [facility] mental health worker and per patient request initiate a dairy free diet with repeat endoscopy in 8 - 12 weeks time to assess for histologicresponse. It should be of note that with underlying hiatal hernia and symptoms of reflux that she may need low-dose PPI therapy for symptomatic management. #Abdominal Bloating #Flatulence The differential for the diagnosis of bloating is broad however is not limited to malabsorption, dietary (lactose/fructose intolerance, high FODMAPs diet), functional (IBS & dyspepsia), motility disorders of the GI tract, small intestinal bacterial overgrowth vs other. The pathogenesis of bloating is not entirely understood. Often it is thought there is a direct correlation between amount of gas and symptoms however we have learned it is not this straightforward. Symptoms may result from an organic process or from a functional gastrointestinal disorder. Bloating is typically multifactorial and determinants include the amount/type of gas present, water content in the lumen, gut microbiota (dysbiosis), motility/transit times and alterations in visceral sensitivity. Diagnostic testing can include basic labs, serologies to evaluate for celiac disease, breath testing for small intestinal bacterial overgrowth, testing for lactose/fructose intolerance and imaging studies. - Labs and stool studies to be obtained today. If negative and failed modified low FODMAPs diet could consider breath testing for SIBO/IMO vs fructose intolerance - Trial of Simethicone (over the counter) 80 mg - 125 mg which can be used up to 4 times daily as needed after meals and at bedtime. Please do not exceed a maximum daily dose of 500 mg/day - Various probiotics that I would recommend include: Culturelle, Florastar or VSL - 3. Bloating Lifestyle Modifications: -- Patients are advised to have regular meal patterns, avoid large meals, reduce intake of insoluble fibers/fat/caffeine as well as alcohol -- Avoidance of artificial sweeteners including sorbitol, truvia, maltitol, mannitol, xylitol, glycerol and lactilol. -- With increased GI concerns please discontinue all coffee/caffine and carbonated beverages -- Studies have shown that following an IBS diet or exclusion of high gas producing foods has a significant impact on symptoms. Foods that have been shown to increase bloating/distension/flatulence include beans, cabbage, onions, celery, carrots, raisins, etc. Significant symptomatic improvement has been seen in patients who adhere to a low fermentable oligo-, di-, and monosaccharides and polyols(FODMAPs) diet. Please review this link regarding a low FODMAP diet provided by the [facility]:[email or web address] -- Many patients do benefit from discussion with a registered nurse maternity to discuss these dietary options -- Attempt to make lifestyle changes to limit aerophagia (swallowing of air) which consists of elimination of carbonated beverages, straws, gum and hard candy. As well attempt to eat slow and avoid gulping/eating fast. -- Recommend an increase in physical activity/exercise. Multiple studies regarding bloating have shown that an increase in physical activity can improve symptoms. Please start by walking 10 minutes three times daily Follow up plan: Return to clinic 4 months and as needed. The risks and benefits of my recommendations, as well as other treatment options were discussed with the patient and any available family today. All questions were answered. Follow up: As planned above. Today, I personally spent 21 minutes in direct face to face time with the patient, of which greater than 50% of the time was spent in patient education and counseling as described above. Approximately 11 minutes were spent on indirect care associated with the patient's consultation including but not limited to review of: patient medical records to date, clinic visits,hospital records, lab results, imaging studies, procedural documentation, and coordinating care with other providers. The findings from this review are summarized in the above note. All of the above accounted for a cumulative time of 42 minutes and was performed on the date of service. The patient verbalized understanding of the plan and was appreciative for the time spent and information provided during the office visit. Meredith Carrera PA-C Division of Gastroenterology, Hepatology, and Nutrition [facility] Documentation assisted by voice recognition and documentation system. documented in this encounter Nursing Notes * Kiah Dominguez - 11/02/2024 7:45 AM CDT Current patient location: [address] [place] [address] Is the patient currently in the state of [place]? YES Visit mode: VIDEO If the visit is dropped, the patient can be reconnected by:VIDEO VISIT: Send to e-mail at: [email or web address] Will anyone else be joining the visit? NO (If patient encounters technical issues they should call [phone] :[phone]) Are changes needed to the allergy or medication list? No Are refills needed on medications prescribed by this physician? NO Rooming Documentation: Unable to complete questionnaire(s) due to time Reason for visit: RECHECK Kiah Dominguez VVF documented in this encounter Plan of Treatment Upcoming Encounters Date Type Department Care Team (Late st Contact Info) Description 12/19/2024 2:00 PM CDT Office Visit [address] [phone] Lauren Claudio PA-C [address] [place] [address] 12/26/2024 7:30 AM CDT Office Visit [facility] [address] [phone] Neil Kent MD [address] [place] [address] [phone] 04/16/2025 11:00 AM CDT Virtual Visit [facility] [address] [facility] 4th [place] [phone] Meredith Carrera PA-C [address] [place] [address] [phone] Pending Results Name Type Priority Associated Diagnoses Date /Time Calprotectin Feces Lab Routine Viral URI with cough Irregular bowel habits 12/17/2024 2:53 PM CDT Scheduled Orders Name Type Priority Associated Diagnoses Orde r Schedule Calprotectin Feces Lab Routine Bloating symptom Irregular bowel habits Expected: 11/02/2024 (Approximate), Expires: 11/02/2025 Scheduled Referrals Name Type Priority Associated Diagnoses Orde r Schedule Adult Nutrition Molecular Genetic Pathologist Referral Referral Routine: Next available opening Eosinophilic esophagitis Expected: 11/02/2024 (Approximate), Expires: 11/02/2025 Adult GI Molecular Genetic Pathologist Referral - Procedure Only Referral Routine: Next available opening Eosinophilic esophagitis Expected: 02/01/2025 (Approximate), Expires: 11/02/2025 documented as of this encounter Results * CRP inflammation (11/20/2024 3:16 PM CDT) CRP Inflammation 3.88 <5.00 mg/L 11/22/19 1:11 PM CDT PH [facility] Blood BLOOD SPECIMEN / Unknown Venipuncture / Unknown 11/20/2024 3:16 PM CDT 11/20/2024 3:16 PM CDT us Meredith ALCALA-C LAB - BLOOD ORDERABLES Shira l Result PH [facility] [address] [facility] (Main level, no room number) [place] [address] * TSH with free T4 reflex (11/20/2024 3:16 PM CDT) TSH 1.55 0.30 - 4.20 uIU/mL 11/21/2024 1:11 PM CDT PH LABORATORY Blood BLOOD SPECIMEN / Unknown Venipuncture / Unknown 11/20/2024 3:16 PM CDT 11/20/2024 3:16 PM CDT Meredith ALCALA-C LAB - BLOOD ORDERABLES Shira l Result PH LABORATORY [facility] [address] [facility] Lab (Main level, no room number) [place] [address] * IgA (11/20/2024 11:40 AM CDT) Immunoglobulin A 146 84 - 499 mg/dL 11/21/2024 7:42 AM CDT SPECIALTY CORE/PROT/END O Blood BLOOD SPECIMEN / Unknown Venipuncture / Unknown 11/20/2024 11:40 AM CDT 11/20/2024 11:40 AM CDT Meredithnahed Carrera PA-C LAB - BLOOD ORDERABLES Shira l Result [facility] SPECIALTY CORE/PROT/ENDO [facility] Specialty Core/Prot/Endo [address] [facility] [address] Building, Room 3-[address] * Tissue transglutaminase dennis IgA and IgG (11/20/2024 11:40 AM CDT) Tissue Transglutaminase Antibody IgA 0.4 <7.0 U/mL 11/23/2024 4:03 PM CDT [facility] SPECIALTY CORE/PROT/END O Comment:Negative- The tTG-Ig A assay has limited utility for patients with decreased levels of IgA. Screening for celiac disease should include IgA testing to rule out selective IgA deficiency and to guide selection and interpretation of serological testing. tTG-IgG testing may be positive in celiac disease patients with IgA deficiency. Tissue Transglutaminase Antibody IgG 0.7 <7.0 U/mL 11/23/2024 4:03 PM CDT SPECIALTY CORE/PROT/END O Comment:Negative Blood BLOOD SPECIMEN / Unknown Venipuncture / Unknown 11/20/2024 11:40 AM CDT 11/20/2024 11:40 AM CDT us Meredith Carrera PA-C LAB - BLOOD ORDERABLES Shira snyder Result SPECIALTY CORE/PROT/ENDO Specialty Core/Prot/Endo [address] [facility] [address] Building, Room 3[address] [place] [address] documented in this encounter Visit Diagnoses Diagnosis Bloating symptom- Primary Flatulence, eructation, and gas pain Irregular bowel habits Other specified disorder of intestines Eosinophilic esophagitis documented in this encounter Additional Health Concerns Assessment Noted Time PHQ-9 Depression Total Score: 5 10/25/19 25 10:38 AM CDT documented as of this encounter Care Teams [employer] Programmer Relationship Specialty Start Date End Date Esha Grimm PA-C [address] [place] [phone] PCP - General Family Medicine 05/04/23 Diana Desir [facility] [address] [place] [address] Pharmacist Pharmacist 04/17/21 Rain Galaviz PA-C [address] [place] [address] [place] [address] Physician Technical Administrator Dermatology 04/28/21 Tavia Wyatt MD [address] [place] [address] [address] [facility] [place] [phone] Dermatology 07/14/21 Erica Farrell APRN HOME ENERGY CONSULTANT [address] [place] [phone] Nurse Practitioner Cardiovascular Disease 09/09/21 Rich Barrett MD [address] [place] [phone] Physician Ophthalmology 01/21/22 Neil Kent MD [address] [place] [address] [phone] MD Dermatology 02/24/22 Diana Desir, [facility] [address] [place], [place] [phone] Assigned [place] Pharmacist 04/07/22 Livan Sharif MD [address] [place] [phone] Cardiovascular Disease 05/14/22 Catherine Cm MD [address] [place] [address] Cardiovascular Disease 07/21/22 Valery Veronica, PA-C [address] [place] [address] Physician Technical Administrator Dermatology 07/21/22 Brea Quinn APRN HOME ENERGY CONSULTANT [address] [place] [address] Nurse Practitioner Dermatology 09/21/22 Radha Lomeli APRN HOME ENERGY CONSULTANT [address] [place] [address] Assigned Heart and Vascular Provider 05/28/23 11/29/24 Jelena David, SONJA [address] [place] [address] MD Ophthalmology 06/15/23 Esha Grimm PA-C [address] [place] [phone] Assigned PCP 07/16/23 Valery Veronica PA-C [address] [place] [address] [phone] Physician Technical Administrator Dermatology 09/19/23 Rey Tay MD [address] [place] [address] [phone] MD Gastroenterology 09/20/23 Rocky Zepeda DO [address] [place] [address] [phone] Physician Gastroenterology 09/20/23 Philip Dumont MD [address] [place] [address] [phone] Physician Ophthalmology 09/22/23 Meredith Carrera PA-C [address] [place] [address] [phone] Assigned Gastroenterology Provider 11/01/23 Neil Kent MD [address] [place] [address] MD Dermatology 11/02/23 [place] [address] [place] [address] Neurological Surgery 12/26/23 Audrey Waite PA-C [address] [place] [address] Physician Technical Administrator Dermatology 02/28/24 Valery Veronica PA-C [id number] [address] [address] Physician Technical Administrator Dermatology 04/10/24 Herminia Hatch MD [address] [place] [address] [phone] Assigned Rheumatology Provider 07/02/[address] [place] [address] [place] [address] [place] [address] Ophthalmology 08/30/24 [place] [address] [place] [address] Assigned Neuroscience Provider 09/30/24 Maru Man PA-C [address] [place] [address] Physician Technical Administrator Dermatology 10/03/24 Maru Man PA-C [address] [place] [address] Physician Technical Administrator Dermatology 10/22/[address] [place] [address] [place] [address] [place] [address] Assigned Surgical Provider 10/31/24 documented as of this encounter
--- OUTSIDE RECORDS SUMMARY | 2024-11-20 11:15 | XMS_ITS | Encounter Summary ---
Author Organization [facility] Address [address] [place] [address] Care Team Providers Care Ec Teacher Name Role Phone Diana Desir Stanislav [facility] Unavailable Rain Galaviz PA-C Unavailable Tavia Wyatt MD Unavailable Erica Farrell APRN CLINICAL REHABILITATION AIDE Unavailable Rich Barrett MD Unavailable [phone] Neil Kent MD Unavailable ThangKendrickDiana Stanislav [facility] Unavailable [phone] Livan Sharif MD Unavailable Catherine Cm MD Unavailable + Valery Veronica-C Unavailable Brea Quinn APRN CLINICAL REHABILITATION AIDE Unavailable [phone] Esha Grimm PA-C Primary Care Provider Radha Lomeli APRN CLINICAL REHABILITATION AIDE Unavailable Jelena David OD Unavailable Esha Grimm PA-C Unavailable [phone] Valery Veronica PA-C Unavailable Rey Tay MD Unavailable Rocky Zepeda DO Unavailable Philip Dumont MD Unavailable [phone] DebiMeredith PA-C Unavailable [phone] Neil Kent MD Unavailable Juan Pablo Emmanuel MD Unavailable Audrey Waite PA-C Unavailable [phone] Valery Veronica PA-C Unavailable Herminia Hatch MD Unavailable Jelena David OD Unavailable Juan Pablo Emmanuel MD Unavailable [phone] Maru Man PA-C Unavailable Maru Man PA-C Unavailable Jelena David OD Unavailable Reason for Referral * Diagnostic Imaging XR (Routine) - Pending Review Specialty Diagnoses / Procedures Referred By Qian mayers Referred To Contact Radiology. Diagnoses Acute cough Procedures XR Chest 2 Views Estephania Flannery NP [address] [place] [address] Phone: tel: fax: Referral ID Status Reason Start Date Expiration Date V isits Requested Visits Authorized [id number] Pending Review 11/20/2024 11/20/2025 1 1 Reason [...] Description 11/20/2024 11:15 AM CDT Office Visit [facility] [address] [place] [address] Estephania Flannery NP [address] [place] [address] Yeast infection of the vagina (Primary Dx); [...] Answer Date Recorded PHQ-2 Score 1 10/24/2024 [facility] [place] [facility] Occupat ional Health - Occupational Stress [...] exercise at this level? 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 Gender Identity Female 03/02/2021 5:45 PM [...] Narrative EXAM: XR CHEST 2 VIEWS LOCATION: [facility] DATE: 11/20/2024 INDICATION: Acute cough COMPARISON: 10/28/2024 [...] Negative Ketones Urine Negative Negative mg/dL Specific [place] Urine 1.015 1.003 - 1.035 Blood Urine [...] Procedure Abnormality Status --------- ------ WBC and Differential[[id number]] Final result Please view results for these [...] Description 12/19/2024 2:00 PM CDT Office Visit [facility] [address] [place] [address] Lauren Claudio PA-C [id number] [place] [address] 12/26/2024 7:30 AM CDT Office Visit [facility] [address] [phone] Neil Kent MD [address] [place] [address] 341015 04/16/2025 11:00 AM CDT Virtual Visit [facility] [address] 4th [place] [phone] Meredith Carrera PA-C [address] [place] [address] [phone] Pending Results Name Type Priority Associated Diagnoses Date /Time Calprotectin Feces Lab Routine Viral URI with cough Irregular bowel habits 12/17/2024 2:53 PM CDT documented as of this encounter Procedures Procedure Name Priority Date/Time Associated Diagnosis Comments TSH WITH FREE T4 REFLEX Routine 11/21/19 [...] unspecified documented in this encounter Results * CRP inflammation (11/20/2024 3:16 PM CDT) [facility] CRP Inflammation 3.88 <5.00 mg/L 11/22/19 1:11 PM CDT PH LABORATORY Blood BLOOD SPECIMEN / Unknown Venipuncture / Unknown 11/20/2024 3:16 PM CDT 11/20/2024 3:16 PM CDT Meredith Carrera PA-C LAB - BLOOD ORDERABLES Shira l Result PH LABORATORY [facility] [address] [place] [address] Lab (Main level, no room number) [place] [phone] * TSH with free T4 reflex (11/20/2024 3:16 PM CDT) [facility] TSH 1.55 0.30 - 4.20 uIU/mL 11/21/2024 1:11 PM CDT PH LABORATORY Blood BLOOD SPECIMEN / Unknown Venipuncture / Unknown 11/20/2024 3:16 PM CDT 11/20/2024 3:16 PM CDT Meredith ALCALA-C LAB - BLOOD ORDERABLES Shira l Result Performing Organization Address [facility] Co de Phone Number PH LABORATORY [facility] [address] [place] [address] Lab (Main level, no room number) [place] [phone] * HIV Antigen Antibody Combo (11/20/2024 3:15 PM CDT) [facility] HIV Antigen Antibody Combo Nonreactive Nonreactive 11/20/2024 10:39 PM CDT [facility] Comment:Negative HIV-1 p24 [...] LAB - BLOOD ORDERABLES Shira l Result [facility] LABORATORY [facility] [place] Core Lab [address] [facility], [address] [place] [address] * (ABNORMAL) UA Microscopic with Reflex to Culture (11/20/2024 11:45 AM CDT) Bacteria Urine Few(A) None Seen /HPF REINA 11/20/2024 11:58 AM CDT [facility] LAB[facility] RBC Urine None Seen 0-2 /HPF /HPF REINA 11/20/2024 11:58 AM CDT [facility] WBC Urine None Seen 0-5 /HPF /HPF REINA 11/20/2024 11:58 AM CDT [facility] Urine URETHRAL STRUCTURE / Unknown Non-blood Collection / Unknown 11/20/2024 11:45 AM CDT 11/20/2024 11:45 AM CDT Narrative [facility] - 11/20/2024 11:58 AM CDT Urine Culture not indicated Estephania Flannery CATERING DIRECTOR LAB - URINE ORDERABLES Shira l Result LV LABORATORY [facility] [address] [facility] Lab (no room number, 1st floor of clinic) [place] [address], [facility] * UA with Microscopic reflex to Culture - Clinic Collect (11/20/2024 11:45 AM CDT) Color Urine Yellow Colorless, Straw, Light Yellow, Yellow 11/20/2024 11:47 AM CDT [facility] Appearance Urine Clear Clear 11/21/19 25 11:47 AM CDT [facility] Glucose Urine Negative Negative mg/dL 11/20/2024 11:47 AM CDT [facility] Bilirubin Urine Negative Negative 11:47 AM CDT [facility] Ketones Urine Negative Negative mg/dL 11/20/2024 11:47 AM CDT [facility] LAB[facility] Specific [place] Urine 1.015 1.003 - 1.035 11/20/2024 11:47 AM CDT [facility] Blood Urine Negative Negative 11/20/2024 11:47 AM CDT [facility] pH Urine 7.0 [...] AM CDT Estephania Flannery NP LAB - URINE ORDERABLES Shira l Result Performing Organization Address [facility] Co de Phone Number LABORATORY [address] (no room number, 1st floor of [facility]) [address] * (ABNORMAL) Wet prep - Clinic Collect (11/20/2024 11:45 AM CDT) Trichomonas Absent Absent REINA 11/20/2024 11:58 AM CDT LABORATORY Yeast Present(A) Absent REINA 11/20/2024 11:58 AM CDT LABORATORY Clue Cells Absent Absent REINA 11/20/2024 11:58 AM CDT LABORATORY WBCs/high power field 1+(A) None REINA 11/20/2024 11:58 AM CDT LABORATORY Swab URETHRAL STRUCTURE / Unknown Non-blood Collection / Unknown 11/20/2024 11:45 AM CDT 11/20/2024 11:45 AM CDT Estephania Flannery NP LAB - MICRO GENERAL ORDERAB LES Final Result Performing Organization Address [facility]/ZIP Co de Phone Number LABORATORY [address] Lab (no room number, 1st floor of [facility]) [place] [phone] * CHLAMYDIA TRACHOMATIS PCR (11/20/2024 11:45 AM CDT) Chlamydia trachomatis Negative Negative 11/21/2024 1:52 PM CDT [facility] LABORATORY Comment:A negative result by poultry processing supervisor mediated amplification does not preclude the [...] - MICRO GENERAL ORDERAB LES Final Result Performing Organization Address [facility] de Phone Number [facility]D LABORATORY [facility] Inf. Diseases Diag. Lab [address] [facility], Room [place] [phone] * NEISSERIA GONORRHOEA PCR (11/20/2024 11:45 AM CDT) [facility] Neisseria gonorrhoeae Negative Negative 11/21/2024 1:52 PM CDT [facility] Comment:Negative for N. gono rrhoeae rRNA by poultry processing supervisor mediated amplification. A negative result by poultry processing supervisor mediated amplification does not preclude the [...] - MICRO GENERAL ORDERAB LES Final Result Performing Organization Address [facility] Co de Phone Number [facility] LABORAT[facility] Inf. Diseases Diag. Lab [address] [facility], Room [place] [phone] * WBC and Differential (11/20/2024 11:41 AM CDT) [facility] WBC Count 5.2 4.0 - 11.0 10e3/uL [...] 11:41 AM CDT 11/20/2024 11:41 AM CDT us Estephania Flannery CATERING DIRECTOR LAB - BLOOD ORDERABLES Shira l Result LABORATORY [facility] [place] Lab [address] [facility] Lab (no room number, 1st floor of clinic) [place] [address], [facility] * IgA (11/20/2024 11:40 AM CDT) Pathologist [facility] Immunoglobulin A 146 84 - 499 mg/dL 11/21/2024 7:42 AM CDT [facility] SPECIALTY CORE/PROT/END O Blood BLOOD SPECIMEN / Unknown Venipuncture / Unknown 11/20/2024 11:40 AM CDT 11/20/2024 11:40 AM CDT Meredith Troncoso Debi PA-C LAB - BLOOD ORDERABLES Shira l Result Performing Organization Address City/[facility]/ZIP Co de Phone Number SPECIALTY CORE/PROT/ENDO Specialty Core/Prot/Endo [address] [facility] [address] [facility], Room [address] * Tissue transglutaminase dennis IgA and [...] AM CDT 11/20/2024 11:40 AM CDT Meredith Karyna Debi PA-C LAB - BLOOD ORDERABLES Shira l Result SPECIALTY CORE/PROT/ENDO Specialty Core/Prot/Endo [address] [facility] [address] [facility], Room [address] * Treponema Abs w Reflex to RPR and Titer (11/20/2024 11:40 AM CDT) Treponema Antibody Total Nonreactive Nonreactive 11/20/2024 9:56 PM CDT SPECIALTY LABS Blood BLOOD SPECIMEN / Unknown Venipuncture / Unknown 11/20/2024 11:40 AM CDT 11/20/2024 11:40 AM CDT Estephania Flannery NP LAB - BLOOD ORDERABLES Shira snyder Result [facility] SPECIALTY CORE/PROT/ENDO UM Specialty Core/Prot/Endo [address] [facility] [address] [facility], Room [phone] [place] [address] [facility] SPECIALTY LABS Specialty Lab [address] [facility] [address] Building, Room [address] [place], [place] [phone] * XR Chest 2 Views (11/20/2024 11:20 AM CDT) Anatomical Region Laterality Modality Chest Computed Radiogr aphy 11/20/2024 11:2 0 AM CDT Impressions 11/20/2024 11:22 AM CDT IMPRESSION: Negative chest. Narrative 11/20/2024 11:22 AM CDT EXAM: XR CHEST 2 VIEWS LOCATION: [facility] DATE: 11/20/2024 INDICATION: Acute cough COMPARISON: 10/28/2024 Procedure Note Robert Ramos MD - 11/20/2024 EXAM: XR CHEST 2 VIEWS LOCATION: [facility] DATE: 11/20/2024 INDICATION: Acute cough COMPARISON: 10/28/2024 IMPRESSION: Negative chest. Estephania Flannery NP IMG DIAGNOSTIC IMAGING ORDSia HERRERA Final Result * COVID-19 Virus (Coronavirus) by [...] using the Aptima SARS-CoV-2 Assay on the Nabsys Instrument System. Additional information about this Emergency [...] COVID-19. This test was validated by the [facility]. This laboratory is certified under the Clinical Laboratory Improvement Amendments of 1988 (CLIA-88) as qualified to perform high complexity laboratory testing. Amaris ALCALA-C LAB - MICRO GENERAL ORD ERABLES Final Result [facility] ID[facility] LABORATORY [facility] Inf. Diseases Diag. Lab [address] [facility], [address] [place] [phone] * Influenza A & B Antigen (11/20/2024 10:45 AM CDT) [facility] Influenza A antigen Negative Negative 11/20/2024 11:22 AM CDT LABORATORY Influenza B antigen Negative Negative 11/20/2024 11:22 AM CDT LABORATORY Swab NASAL STRUCTURE / Unknown Non-blood Collection / Unknown 11/20/2024 10:45 AM CDT 11/20/2024 10:47 AM CDT [facility] LABORATORY - 11/20/2024 11:22 AM CDT Test results must be correlated with clinical data. If necessary, results should be confirmed by a molecular assay or viral culture. Amaris ALCALA-C LAB - MICRO GENERAL ORD ERABLES Final Result LABORATORY [facility] [address] [facility] Lab (no room number, 1st floor of clinic) [place] [address], [facility] documented in this [...] Time PHQ-9 Depression Total Score: 5 10/25/19 10:38 AM CDT documented as of this encounter Care Teams Ec Teacher Relationship Specialty Start Date End Date Esha Grimm PA-C [address] [place] [address] PCP - General Family Medicine 05/04/23 [facility] [address] [place], [place] [phone] Pharmacist Pharmacist 04/17/21 Rain Galaviz PA-C [address] [place] [address] [address] [place] [address] Physician Meat Specialist Dermatology 04/28/21 Tavia Wyatt MD [address] [place] [address] [address] [place] [address] Dermatology 07/14/21 Erica Farrell APRN CLINICAL REHABILITATION AIDE [address] [facility] [address] [place] [address] Nurse Practitioner Cardiovascular Disease 09/09/21 Rich Barrett MD [address] [place] [phone] Physician Ophthalmology 01/21/22 Neil Kent MD [address] [place] [address] MD Dermatology 02/24/22 [facility] [address] [place] [address] Assigned MTM Pharmacist 04/07/22 Livan Sharif MD [address] [place] [address] Cardiovascular Disease 05/14/22 Catherine Cm MD [address] [place] [id number] Cardiovascular Disease 07/21/22 Valery Veronica, PA-C [address] [place] [address] Physician Meat Specialist Dermatology 07/21/22 Brea Quinn APRN CLINICAL REHABILITATION AIDE [address] [place] [address] Nurse Practitioner Dermatology 09/21/22 Radha Lomeli APRN CLINICAL REHABILITATION AIDE [address] [place] [address] Assigned Heart and Vascular Provider 05/28/23 11/29/24 Jelena David OD [address] [facility] [place] [address] MD Ophthalmology 06/15/23 Esha Grimm PA-C [address] [place] [phone] Assigned PCP 07/16/23 Valery Veronica PA-C [address] [place] [address] Physician Meat Specialist Dermatology 09/19/23 Rey Tay MD [address] [place] [address] [phone] MD Gastroenterology 09/20/23 Rocky Zepeda DO [address] [place] [address] 237655 Physician Gastroenterology 09/20/23 Philip Dumont MD [address] [place] [address] [phone] Physician Ophthalmology 09/22/23 Meredith Carrera PA-C [address] [place] [address] [phone] Assigned Gastroenterology Provider 11/01/23 Neil Kent MD [address] [place] [address] [phone] Dermatology 11/02/23 [place] [address] [place] [address] Neurological Surgery 12/26/23 Audrey Waite PA-C [address] [place] [address] Physician Meat Specialist Dermatology 02/28/24 Valery Veronica PA-C [address] [place] [address] Physician Meat Specialist Dermatology 04/10/24 Herminia Hatch MD [address] [place] [address] Assigned Rheumatology Provider 07/02/24 Jelena David OD [address] [place] [address] [place] [address] Ophthalmology 08/30/24 [place] [address] [place] [address] Assigned Neuroscience Provider 09/30/24 Maru Man PA-C [address] [place] [address] Physician Meat Specialist Dermatology 10/03/24 Maru Man PA-C [address] [place] [address] Physician Meat Specialist Dermatology 10/22/24 Jelena David OD [address] [place] [address] [place] [address] Assigned Surgical Provider 10/31/24 documented as of this encounter
--- OUTSIDE RECORDS SUMMARY | 2024-11-20 11:20 | XMS_ITS | Encounter Summary ---
Author Organization [facility] Address [address] [place] [address] Care Team Providers Care Credit Compliance Officer Name Role Phone Diana Desir Stanislav [facility] Unavailable Rain Galaviz PA-C Unavailable [phone] Tavia Wyatt MD Unavailable Erica Farrell APRN PRODUCTION TECHNOLOGIST Unavailable Rich Barrett MD Unavailable [phone] Neil Kent MD Unavailable ThangKendrickDiana Stanislav [facility] Unavailable [phone] Livan Sharif MD Unavailable Catherine Cm MD Unavailable + Valery Veronica-C Unavailable [phone] Brea Quinn APRN PRODUCTION TECHNOLOGIST Unavailable Esha Grimm PA-C Primary Care Provider Radha Lomeli APRN PRODUCTION TECHNOLOGIST Unavailable Jelena David OD Unavailable Esha Grimm PA-C Unavailable [phone] Valery Veronica PA-C Unavailable Rey Tay MD Unavailable Duane Rocky Unavailable Philip Dumont MD Unavailable LoreMeredith mayers PA-C Unavailable Neil Kent MD Unavailable Juan Pablo Emmanuel MD Unavailable [phone] Audrey Waite PA-C Unavailable Valery Veronica PA-C Unavailable Herminia Hatch MD Unavailable Jelena David OD Unavailable [phone] Juan Pablo Emmanuel MD Unavailable [phone] Maru Man PA-C Unavailable Maru Man PA-C Unavailable Jelena David OD Unavailable Reason for Visit * Diagnostic Imaging XR (Routine) - Pending Review Specialty Diagnoses / Procedures Referred By Qian mayers Referred To Contact Radiology. Diagnoses Acute cough Procedures XR Chest 2 Views Estephania Flannery NP [address] [place] [address] Phone: tel: fax: Referral ID Status Reason Start Date Expiration Date V isits Requested Visits Authorized [id number] Pending Review 11/20/2024 11/20/2025 1 1 Encounter Details Date Type Department Care Team (Late st Contact Info) Description 11/20/2024 11:20 AM CDT Ancillary Procedure [facility] [address] [place] [address] Estephania Flannery NP [address] [place] [address] Acute cough Social History Tobacco Use Types Packs/Day Years [...] Answer Date Recorded PHQ-2 Score 1 10/24/2024 [facility] of Occupat ional [...] exercise at this level? 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 Gender Identity Female 03/02/2021 5:45 PM CDT Sexual Orientation Straight 02/28/2020 12 :51 AM CDT documented as of this encounter Plan of Treatment Upcoming Encounters Date Type Department Care Team (Late st Contact Info) Description 12/19/2024 2:00 PM CDT Office Visit [facility] [address] [place] [address] Lauren Claudio PA-C [address] [place] [address] 12/26/2024 7:30 AM CDT Office Visit [facility] [address] [phone] Neil [place] MD [address] [place] [address] 361935 04/16/2025 11:00 AM CDT Virtual Visit [facility] [place] [address] [place] [address] 4th [place] [phone] Meredith Carrera PA-C [address] [place] [address] documented as of this encounter Procedures Procedure Name Priority Date/Time Associated Diagnosis Comments XR CHEST 2 VIEWS STAT 11/20/2024 11:2 0 AM CDT Acute cough documented in this encounter Results * XR Chest 2 Views (11/20/2024 11:20 AM CDT) Anatomical Region Laterality Modality Chest Computed Radiogr aphy 11/20/2024 11:2 0 AM CDT Impressions 11/20/2024 11:22 AM CDT IMPRESSION: Negative chest. Narrative 11/20/2024 11:22 AM CDT EXAM: XR CHEST 2 VIEWS LOCATION: [facility] DATE: 11/20/2024 INDICATION: Acute cough COMPARISON: 10/28/2024 Procedure Note Robert Ramos MD - 11/20/2024 EXAM: XR CHEST 2 VIEWS LOCATION: [facility] DATE: 11/20/2024 INDICATION: Acute cough COMPARISON: 10/28/2024 IMPRESSION: Negative chest. Estephania Flannery DIRECTOR OF PRIMARY IMG DIAGNOSTIC IMAGING DONYA HERRERA Final Result documented in this encounter Visit Diagnoses Diagnosis Acute cough documented in this encounter Additional Health Concerns Infection Onset Date Last Indicated Resolved Time Rule Out COVID-19 11/20/2024 11/20/2024 11/21/2024 11:23 AM CDT Assessment Noted Time PHQ-9 Depression Total Score: 5 10/25/19 10:38 AM CDT documented as of this encounter Care Teams Credit Compliance Officer Relationship Specialty Start Date End Date Esha Grimm PA-C [address] [place] [address] PCP - General Family Medicine 05/04/23 Diana Desir, [facility] [address] [facility] [place] [address] Pharmacist Pharmacist 04/17/21 Rain Galaviz PA-C [address] [place] [address] [address] [place] [address] Physician Strategic Debriefing Officer Dermatology 04/28/21 Tavia Wyatt MD [address] [place] [address] [address] [place] [address] Dermatology 07/14/21 Erica Farrell APRN PRODUCTION TECHNOLOGIST [address] [place] [address] Nurse Practitioner Cardiovascular Disease 09/09/21 Rich Barrett MD [address] [place] [address] Physician Ophthalmology 01/21/22 Neil Kent MD 500 [place], [place] 775605 MD Dermatology 02/24/22 Diana Desir, [facility] 3033 [place] [address] Assigned MTM Pharmacist 04/07/22 Livan Sharif MD [address] [place] [id number] Cardiovascular Disease 05/14/22 Catherine Cm MD [address] [place] [id number] Cardiovascular Disease 07/21/22 Valery Veronica, PA-C 909 [place], [place] 253765 Physician Strategic Debriefing Officer Dermatology 07/21/22 Brea Quinn APRN PRODUCTION TECHNOLOGIST 500 [place] [address] Nurse Practitioner Dermatology 09/21/22 Radha Lomeli APRN PRODUCTION TECHNOLOGIST [address] [place] [id number] Assigned Heart and Vascular Provider 05/28/23 11/29/24 Jelena Daivd OD [address] [facility] [place] [address] MD Ophthalmology 06/15/23 Esha Grimm PA-C [address] [place] [phone] Assigned PCP 07/16/23 Valery Veronica PA-C [address] [place] [address] 866685 Physician Strategic Debriefing Officer Dermatology 09/19/23 Rey Tay MD [address] [place] [address] 937835 MD Gastroenterology 09/20/23 Rocky Zepeda DO [address] [place] [address] 582565 Physician Gastroenterology 09/20/23 Philip Dumont MD [address] [place] [address] 086345 Physician Ophthalmology 09/22/23 Meredith Carrera PA-C [address] [place] [address] 358535 Assigned Gastroenterology Provider 11/01/23 Neil [place] MD [address] [place] [address] Dermatology 11/02/23 [place] [address] [place] [address] Neurological Surgery 12/26/23 Audrey Waite PA-C 500 [place] [address] Physician Strategic Debriefing Officer Dermatology 02/28/24 Valery Veronica PA-C 924122 [place], [place] [address] Physician Strategic Debriefing Officer Dermatology 04/10/24 Herminia Hatch MD [address] [place] [address] Assigned Rheumatology Provider 07/02/24 Jelena David OD [address] [place] [address] [place] [address] Ophthalmology 08/30/24 [place] [address] [place] [address] Assigned Neuroscience Provider 09/30/24 Maru Man PA-C [address] [place] [address] Physician Strategic Debriefing Officer Dermatology 10/03/24 Maru Man PA-C [address] [place] [address] Physician Strategic Debriefing Officer Dermatology 10/22/24 Jelena David OD [address] [place] [address] [place] [address] Assigned Surgical Provider 10/31/24 documented as of this encounter
--- OUTSIDE RECORDS SUMMARY | 2024-11-21 23:04 | XMS_ITS | Encounter Summary ---
Author Organization [facility] Address [address] [place] [address] Care Team Providers Care Supervisor Pig Machine Name Role Phone Diana Desir Stanislav [facility] Unavailable Rain Galaviz PA-C Unavailable Tavia Wyatt MD Unavailable Erica Farrell APRN REALTIME REPORTER Unavailable Rich Barertt MD Unavailable [phone] Neil Kent MD Unavailable ThangKendrickDiana Stanislav [facility] Unavailable [phone] Livan Sharif MD Unavailable Catherine Cm MD Unavailable + Valery Veronica-C Unavailable Brea Quinn APRN REALTIME REPORTER Unavailable Esha Grimm PA-C Primary Care Provider Radha Lomeli APRN REALTIME REPORTER Unavailable Jelena David OD Unavailable Esha Grimm PA-C Unavailable [phone] Valery Veronica PA-C Unavailable Rey Tay MD Unavailable DuaneRocky Unavailable Philip Dumont MD Unavailable LoreMeredith mayers PA-C Unavailable Neil Kent MD Unavailable Juan Pablo Emmanuel MD Unavailable Audrey Waite PA-C Unavailable Valery Veronica PA-C Unavailable [phone] Herminia Hatch MD Unavailable Jelena David OD Unavailable Juan Pablo Emmanuel MD Unavailable [phone] Maru Man PA-C Unavailable Maru Man PA-C Unavailable Jelena David OD Unavailable Reason for Visit * Reason Comments Shortness of Breath Chest Pain Encounter Details Date Type Department Care Team (Late st Contact Info) Description 11/21/2024 11:04 PM CDT - 11/22/2024 2:[address] [facility] Emergency Dept [address] [place] [address] Sha Ness MD [facility] [address] [place] [address] Influenza B; Sinus tachycardia Discharge [...] [facility] [...] exercise at this level? 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 30 tablet 1 10/18/2024 tacrolimus (PROTOPIC) 0.1 % external ointmentIndicatio ns:Psoriasis [...] for 2 doses. 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 She also notes back pain worsening when breathing. She was seen at the ED in [place] and diagnosed with influenza B. She was [...] -- -- -- 100 % -- -- 11/21/249 (!) 126/92 99 ??F (37.2 ??C) Temporal [...] Pressure Ventricular Rate 115 Atrial Rate 117 [place] Interval 160 QRS Duration 82 QT 332 QTc 459 P Sawyer 64 R AXIS 68 T Sawyer 24 Interpretation ECG Sinus tachycardia Nonspecific T [...] None ED Course ED Course as of 11/22/245 Wed November 21, 2024 2334 I obtained history and examined the patient as noted above. Noa November 22, 2024124 I rechecked and updated the patient. 0125 We discussed plan for discharge and the patient is comfortable with this. Additional Documentation None Medical Decision Making / Diagnosis [facility] Diagnoses: None MIPS None MDM Kim Johnson [...] J10.1 2. Sinus tachycardia R00.0 Scribe Disclosure: I, Seth Gilles, am serving as a scribe at 1:25 [...] Description 12/19/2024 2:00 PM CDT Office Visit [address] [phone] Lauren Claudio PA-C [address] [place] [address] 12/26/2024 7:30 AM CDT Office Visit [facility] [address] [place] [phone] Neil Kent MD [address] [place] [address] 04/16/2025 11:00 AM CDT Virtual Visit [facility] [place] [address] [place] [address] 4th [place] [phone] Meredith Carrera PA-C [address] [place] [address] [phone] documented as of this encounter Procedures Procedure [...] CDT EXAM: XR CHEST 2 VIEWS LOCATION: [facility] DATE: 11/22/2024 INDICATION: Cough and dyspnea. COMPARISON: 11/20/2024 Procedure Note Roney Monroy MD - 11/22/2024 EXAM: XR CHEST 2 VIEWS LOCATION: [facility] DATE: 11/22/2024 INDICATION: Cough and dyspnea. COMPARISON: 11/20/2024 IMPRESSION: Negative chest. Sha Ness MD IMG DIAGNOSTIC IMAGING OR DERABLES Final Result * Extra Red Top Tube (11/22/2024 12:06 AM CDT) Hold Specimen [facility] 11/22/2024 1:31 AM CDT LABORATORY Blood VENOUS LINE / Unknown Venipuncture / Unknown 11/22/2024 12:06 AM CDT 11/22/2024 12:27 AM CDT Sha Ness MD LAB - BLOOD ORDERABLES Fi nal Result [facility] Acute Care Lab [address] Lab (1st floor, no room number) [place] [address], [facility] * Extra Blue Top Tube (11/22/2024 12:06 AM CDT) Hold Specimen [facility] 11/22/2024 1:31 AM CDT LABORATORY Blood VENOUS LINE / Unknown Venipuncture / Unknown 11/22/2024 12:06 AM CDT 11/22/2024 12:27 AM CDT us Sha Ness MD LAB - BLOOD ORDERABLES Fi nal Result [facility] LABORATORY [facility] Acute Care Lab [address] Lab (1st floor, no room number) [place] [address], [facility] * (ABNORMAL) CBC with [...] - 8.3 10e3/uL 11/22/2024 12:33 AM CDT [facility] LABORATORY Absolute Lymphocytes 0.9 0.8 - 5.3 10e3/uL 11/22/2024 12:33 AM CDT [facility] Absolute Monocytes 0.4 0.0 - 1.3 10e3/uL 11/22/2024 12:33 AM CDT [facility] Absolute Eosinophils 0.1 0.0 - 0.7 10e3/uL 11/22/2024 12:33 AM CDT [facility] Absolute Basophils 0.0 0.0 - 0.2 10e3/uL 11/22/2024 12:33 AM CDT [facility] LAB[facility] Absolute Immature Granulocytes 0.0 <=0.4 10e3/uL 11/22/2024 12:33 AM CDT [facility] LABORAT[facility] Absolute NRBCs 0.0 10e3/uL 11/22/2024 12:33 AM CDT LABORATORY Blood VENOUS LINE / Unknown Venipuncture / Unknown 11/22/2024 12:06 AM CDT 11/22/2024 12:27 AM CDT us Sha Ness MD LAB - BLOOD ORDERABLES Fi nal Result LABORATORY [facility] Acute Care Lab [address] [facility] Lab (1st floor, no room number) [place] [address], [facility] * Troponin T, High Sensitivity (11/22/2024 12:06 [...] - BLOOD ORDERABLES Fi nal Result LABORATORY [facility] Acute Care Lab [address] Lab (1st floor, no room number) [place] [address], [facility] * Basic metabolic panel (BMP) (11/22/2024 12:06 [...] - BLOOD ORDERABLES Fi nal Result LABORATORY [facility] Acute Care Lab [address] Lab (1st floor, no room number) [place] [address], [facility] * (ABNORMAL) Influenza A/B, RSV and SARS-CoV2 PCR (COVID-19) Nasopharyngeal (11/21/2024 11:17 PM CDT) [facility] Influenza A PCR Negative Negative 11/22/2024 12:10 [...] the Xpert Xpress CoV2/Flu/RSV Assay on the [employer] GeneXpert Instrument. This test should be ordered [...] management. This test was validated by the [facility]. These laboratories are certified under the Clinical Laboratory Improvement Amendments of 1988 (CLIA-88) as qualified to perfom high complexity laboratory testing. Sha Ness MD LAB - MICRO GENERAL ORDER GARY Final Result [facility] Acute Care Lab [address] Lab (1st floor, no room number) [place] [address], [facility] * EKG 12-lead, tracing only (11/21/2024 10:53 PM CDT) Systolic Blood Pressure mmHg RADIOLOGY RESULTS Diastolic Blood Pressure mmHg RADIOLOGY RESULTS Ventricular Rate 115 BPM RAD IOLOGY RESULTS Atrial Rate 117 BPM RADIOLOG Y RESULTS KS Interval 160 ms RADIOLOG Y RESULTS QRS Duration 82 ms RADIOLO GY RESULTS QT 332 ms RADIOLOGY RESULTS QTc 459 ms RADIOLOGY RESULTS P Sawyer 64 degrees RADIOLOGY RESULTS R AXIS 68 degrees RADIOLOGY RESULTS T Sawyer 24 degrees RADIOLOGY RESULTS Interpretation ECG Sinus [...] - EMERGENCY ROOM, PHYSICIAN ([id number]), photo editor NIC LESTER ([id number]) on 11/22/2024 6:51:59 AM RADIOLOGY RESULTS 11/21/2024 [...] as of this encounter Care Teams Supervisor Pig Machine Relationship Specialty Start Date End Date Esha Grimm PA-C [address] [place] [phone] PCP - General Family Medicine 05/04/23 Diana Desir, [facility] [address] [place] [address] Pharmacist Pharmacist 04/17/21 Rain Galaviz PA-C [address] [place] [address] [address] [facility] [facility] [place] [address] Physician Service Attendant Dermatology 04/28/21 Tavia Wyatt MD [address] [place] [address] [address] [facility] [place] [address] Dermatology 07/14/21 Erica Farrell APRN REALTIME REPORTER [address] [place] [address] Nurse Practitioner Cardiovascular Disease 09/09/21 Rich Barrett MD [address] [place] [address] Physician Ophthalmology 01/21/22 Neil Kent MD [address] [place] [address] Dermatology 02/24/22 Diana Desir, [facility] [address] [place] [address] Assigned MTM Pharmacist 04/07/22 Livan Sharif MD [address] [place] [id number] Cardiovascular Disease 05/14/22 Catherine Cm MD [address] [place] [address] Cardiovascular Disease 07/21/22 Valery Veronica PA-C [address] [place] [address] Physician Service Attendant Dermatology 07/21/22 Brea Quinn APRN REALTIME REPORTER [address] [place] [address] 644995 Nurse Practitioner Dermatology 09/21/22 Radha Lomeli APRN REALTIME REPORTER [address] [place] [address] Assigned Heart and Vascular Provider 05/28/23 11/29/24 Jelena David OD [address] [facility] [place] [address] Ophthalmology 06/15/23 Esha Grimm PA-C [address] [place] [address] Assigned PCP 07/16/23 Valery Veronica PA-C [address] [place] [address] 466105 Physician Service Attendant Dermatology 09/19/23 Rey Tay MD [address] [place] [address] [phone] Gastroenterology 09/20/23 Rocky Zepeda DO [address] [place] [address] 738775 Physician Gastroenterology 09/20/23 Philip Dumont MD [address] [place] [address] Physician Ophthalmology 09/22/23 Meredith Carrera PA-C [address] [place] [address] 766295 Assigned Gastroenterology Provider 11/01/23 Neil Kent MD [address] [place] [address] [phone] Dermatology 11/02/23 [place] [address] 55[address] Neurological Surgery 12/26/23 Audrey Waite PA-C [address] [place] [address] Physician Service Attendant Dermatology 02/28/24 Valery Veronica PA-C 175593 [place], [place] [address] Physician Service Attendant Dermatology 04/10/24 Herminia Hatch MD [facility] [place] [address] Assigned Rheumatology Provider 07/02/24 [place] [address] [place] [address] [place] [address] Ophthalmology 08/30/24 [place] [address] [place] [address] Assigned Neuroscience Provider 09/30/24 Maru Man PA-C [address] [place] [address] Physician Service Attendant Dermatology 10/03/24 Maru Man PA-C [address] [address] Physician Service Attendant Dermatology 10/22/24 Jelena David OD [address] [facility] [place] [address] Assigned Surgical Provider 10/31/24 documented as of this encounter
--- OUTSIDE RECORDS SUMMARY | 2024-11-22 04:00 | XMS_ITS | Encounter Summary ---
Author Organization [facility] Address [address] [place] [id number] Care Team Providers Care [place] Consultant Name Role Phone Diana Desir Stanislav [facility] Unavailable Rain Galaviz PA-C Unavailable Tavia Wyatt MD Unavailable Erica Farrell APRN MANUFACTURING CONTROLLER Unavailable Rich Barrett MD Unavailable [phone] Neil Kent MD Unavailable ThangKendrickDiana Stanislav [facility] Unavailable [phone] Livan Sharif MD Unavailable Catherine Cm MD Unavailable + Valery Veronica-C Unavailable Brea Quinn APRN MANUFACTURING CONTROLLER Unavailable Esha Grimm PA-C Primary Care Provider Radha Lomeli APRN MANUFACTURING CONTROLLER Unavailable Jelena David OD Unavailable Esha Grimm PA-C Unavailable Valery Veronica PA-C Unavailable Rey García MD Unavailable ZepedaRocky woodard Unavailable Philip Dumont MD Unavailable [phone] DebiMeredith PA-C Unavailable eNil Kent MD Unavailable Juan Pablo Emmanuel MD Unavailable [phone] Audrey Waite PA-C Unavailable Valery Veronica PA-C Unavailable Herminia Hatch MD Unavailable Jelena David OD Unavailable Juan Pablo Emmanuel MD Unavailable [phone] Maru Man PA-C Unavailable Maru Man-C Unavailable Jelena David OD Unavailable Reason for Visit * Reason Comments Chest Pain * Auth/Cert (Routine) Specialty Diagnoses / Procedures Referred By Contparviz t Referred To Contact EMERGENCY MEDICINE Diagnoses Shortness of breath Tachycardia Near syncope Influenza B [facility] Emergency Dept [address] [place] [address] Phone: tel: fax: Referral ID Status Reason Start Date Expiration Date Visits Re quested Visits Authorized [id number] 1 1 Encounter Details Date Type Department Care Team (Late st Contact Info) Description 11/22/2024 4:00 AM CDT - 11/22/2024 10:31 AM CDT Hospital Encounter [facility] Emergency Dept [address] [place] [phone] Elizabeth Griffin MD [facility] [address] [place] [id number] Apolinar Grande MD [facility] [address] [place], [place] [address] Luis Angel Leone MD [address] [place] [id number] Dot Dale MD [address] [id number] Shortness of breath; Tachycardia; Near syncope; Influenza B Discharge Disposition: Home or Self Care Social [...] Answer Date Recorded PHQ-2 Score 1 10/24/2024 [facility] - Occupational [...] exercise at this level? 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[employer] Gender Identity Female 03/02/2021 5:45 PM CDT Sexual Orientation Straight 02/28/2020 12 :51 AM CDT documented as of this encounter Last Filed Vital Signs Vital Sign Reading Time Taken Comments Blood Pressure 123/56 11/22/2024 7:33 AM CDT Pulse 98 11/22/2024 10:25 AM CDT Temperature 36.9 C (98.5 F) 11/22/2024 4:05 AM CDT Respiratory Rate 16 11/22/2024 10:25 AM CDT Oxygen Saturation 98% 11/22/2024 7:35 AM CDT Inhaled Oxygen Concentration - - Weight - - Height - - Body Mass Index - - documented in this encounter Discharge Summaries * Dot Dale MD - 11/22/2024 9:12 AM CDT [facility] Hospitalist Discharge Summary Date of Admission: 11/22/2024 Date of Discharge: 11/22/2024 10:31 AM Discharging Provider: Dot Dale MD Discharge Service: Hospitalist Service Discharge Diagnoses Intermittent sinus tachycardia in the setting of fever and influenza B infection Clinically Significant Risk Factors # Obesity: Estimated body mass index is 32.28 kg/m?? as calculated from the following: Height as of 11/21/24: 1.676 m (5' 6). Weight as of 11/21/24: 90.7 kg (200 lb). Follow-ups Needed After Discharge Follow-up Appointments Follow Up Follow up with cardiology at your earliest convenience. Discharge Disposition Discharged to home Condition at discharge: Stable Hospital Course Kim Clark is a 24 year old female with a history of supraventricular tachycardia status post ablation admitted on 11/22/2024. She re-presents to the emergency department with known influenza B after having episodes of tachycardia at home into the 150 range. Was in contact with on-call cardiology who recommended return to the emergency department for echocardiogram. Intermittent sinus tachycardia: Suspect sinus tachycardia as a physiologic response to febrile illness with influenza B. Had sinus tachycardia at [facility] emergency department on EKG. Currently in normal sinus rhythm. History of SVT without known recurrence after ablation in 2021. * Pt feeling markedly better at the time of discharge with normal HRs and requests to leave after the Echo. * Echocardiogram completed in the ED shoed EF of 60-65% with normal RV size and function. No valve dysfunction or pericardial effusion. - Continue metoprolol XL 12.5 mg twice daily - Follow-up with cardiology as needed History of supraventricular tachycardia: Ablation in August 2021. Has had ~10 outpatient cardiac monitoring devices since ablation for symptoms, no recurrence noted (at least on recent testing review) - Follow-up with cardiology as needed Nocturnal gasping episodes: Describes a history of gasping as she is falling asleep. Never evaluated for obstructive sleep apnea in the past. This is not associated only with current influenza, but also - Recommend outpatient sleep study when recovered from influenza Generalized anxiety disorder with moderate major depression: - Continue prior to admission paroxetine Consultations This Hospital Stay CARDIOLOGY IP CONSULT Code Status Full Code Time Spent on this Encounter I, Dot Dale MD, personally saw the patient today and spent less than or equal to 30 minutes discharging this patient. Dot Dale MD [facility] EMERGENCY DEPT [address] [place] [phone] Physical Exam Vital Signs: Temp: 98.5 ??F (36.9 ??C) Temp src: Temporal BP: 127/71 Pulse: 74 Resp: 19 SpO2: 96 % O2 Device: None (Room air) Weight: 0 lbs 0 oz Constitutional: Awake, alert, cooperative, no apparent distress. Eyes: Conjunctiva and pupils examined and normal. HEENT: Moist mucous membranes, normal dentition. Respiratory: Clear to auscultation bilaterally, no crackles or wheezing. Cardiovascular: Regular rate and rhythm, normal S1 and S2, and no murmur noted. GI: Soft, non-distended, non-tender, normal bowel sounds. Skin: No rashes, no cyanosis, no edema. Musculoskeletal: No joint swelling, erythema or tenderness. Neurologic: Cranial nerves 2-12 intact, normal strength and sensation. Psychiatric: Alert, oriented to person, place and time, no obvious anxiety or depression. Primary Care Physician Esha Grimm Discharge Orders Reason for your hospital stay You were admitted for evaluation of tachycardia Activity Your activity upon discharge: activity as tolerated Follow Up Follow up with cardiology at your earliest convenience. Diet Follow this diet upon discharge: Current Diet:Orders Placed This Encounter Regular Diet Adult Significant Results and Procedures Most Recent 3 CBC's: Recent Labs Lab Test 11/22/24 0500 11/22/24 0006 11/20/24 1141 10/28/24 1619 WBC 4.0 3.6* 5.2 6.6 HGB 10.9* 11.2* -- 12.2 MCV 80 80 -- 78 PLT 149* 160 -- 234 Most Recent 3 BMP's: Recent Labs Lab Test 11/22/24 0500 11/22/24 0006 10/28/24 1619 NA 138 138 137 POTASSIUM 3.7 3.7 3.7 CHLORIDE 106 107 102 CO2 22 23 23 BUN 8.6 9.1 17.3 CR 0.66 0.73 0.78 ANIONGAP 10 8 12 CECILLE 8.5* 8.8 9.2 GLC 106* 85 86 , Results for orders placed or performed during the hospital encounter of 11/22/24 Echocardiogram Complete Value LVEF 60-65% Narrative [id number]^LEONE^LUIS ANGEL^[facility] Echocardiography Laboratory [address] [place] [id number] Name: KIM CLARK : 2000 Study Date: 11/22/2024 09:53 AM Age: 24 yrs Gender: Female Patient Location: [facility] Reason For Study: Tachycardia Ordering Physician: LUIS ANGEL LEONE Performed By: DAISY Mobley BSA: 2.0 m2 Height: 66 in Weight: 200 lb HR: 71 BP: 127/71 mmHg Procedure Echocardiogram with two-dimensional, color and spectral Doppler. Adequate quality two-dimensional was performed and interpreted. Interpretation Summary Left ventricular systolic function is normal. The visual ejection fraction is 60-65%. The right ventricle is normal in structure, function and size. No significant valve dysfunction. The inferior vena cava was normal in size with preserved respiratory variability. The aortic root is normal size. There is no pericardial effusion. No chnage from prior study dated 06/07/2023. Left Ventricle The left ventricle is normal in structure, function and size. There is normal left ventricular wall thickness. Left ventricular systolic function is normal. The visual ejection fraction is 60-65%. Left ventricular diastolic function is normal. Normal left ventricular wall motion. Right Ventricle The right ventricle is normal in structure, function and size. Atria Normal left atrial size. Right atrial size is normal. Mitral Valve The mitral valve is normal in structure and function. Tricuspid Valve The tricuspid valve is normal in structure and function. The right ventricular systolic pressure is approximated at 16.4 mmHg plus the right atrial pressure. Aortic Valve The aortic valve is normal in structure and function. Pulmonic Valve The pulmonic valve is normal in structure and function. Vessels The aortic root is normal size. Normal size ascending aorta. The inferior vena cava was normal in size with preserved respiratory variability. Pericardium There is no pericardial effusion. MMode/2D Measurements & Calculations IVSd: 0.58 cm LVIDd: 4.7 cm LVIDs: 3.0 cm LVPWd: 0.87 cm FS: 36.5 % LV mass(C)d: 108.2 grams LV mass(C)dI: 54.1 grams/m2 Ao root diam: 3.2 cm asc Aorta Diam: 2.5 cm LVOT diam: 2.1 cm LVOT area: 3.3 cm2 Ao root diam index Ht(cm/m): 1.9 Ao root diam index BSA (cm/m2): 1.6 Asc Ao diam index BSA (cm/m2): 1.2 Asc Ao diam index Ht(cm/m): 1.5 LA Volume (BP): 46.1 ml LA Volume Index (BP): 23.1 ml/m2 RWT: 0.37 TAPSE: 2.3 cm Doppler Measurements & Calculations MV E max anuel: 86.6 cm/sec MV A max anuel: 45.2 cm/sec MV E/A: 1.9 MV dec slope: 334.0 cm/sec2 MV dec time: 0.26 sec PA acc time: 0.18 sec TR max anuel: 202.8 cm/sec TR max P.4 mmHg E/E' av.2 Lateral E/e': 4.5 Medial E/e': 5.8 RV S Anuel: 14.8 cm/sec Report approved by: Samantha Singh MD on 11/22/2024 01:45 PM *Note: Due to a large number of results and/or encounters for the requested time period, some results have not been displayed. A complete set of results can be found in Results Review. Discharge Medications Current Discharge Medication List CONTINUE these medications which have NOT CHANGED Details clindamycin (CLEOCIN T) 1 % external lotion Apply topically 2 times daily Qty: 60 mL, Refills: 1 Associated Diagnoses: Acne, unspecified acne type Digestive Enzymes (DIGESTIVE ENZYME PO) fluconazole (DIFLUCAN) 150 MG tablet Take 1 tablet (150 mg) by mouth every 3 days for 2 doses. Qty: 2 tablet, Refills: 0 Associated Diagnoses: Yeast infection of the vagina ketoconazole (NIZORAL) 2 % external shampoo Use every 1-2 days when flared. Leave in few minutes before rinsing. Use twice weekly to prevent flares. Qty: 120 mL, Refills: 11 Associated Diagnoses: Psoriasis levonorgestrel (MIRENA) 52 MG (20 mcg/day) IUD by Intrauterine route once LORazepam (ATIVAN) 0.5 MG tablet Take 1 tablet (0.5 mg) by mouth daily as needed for anxiety Qty: 30 tablet, Refills: 0 Associated Diagnoses: Anxiety metoprolol succinate ER (TOPROL XL) 25 MG 24 hr tablet Take 0.5 tablets (12.5 mg) by mouth daily. Qty: 45 tablet, Refills: 3 Associated Diagnoses: Palpitations Multiple Vitamin (MULTIVITAMIN ADULT PO) omeprazole (PRILOSEC) [address] capsule Take 1 capsule (40 mg) by mouth daily. Qty: 90 capsule, Refills: 2 Associated Diagnoses: Epigastric pain PARoxetine (PAXIL) 40 MG tablet Take 1 tablet (40 mg) by mouth every morning. NEED APPT FOR FURTHERREFILLS. Qty: 30 tablet, Refills: 1 Associated Diagnoses: Anxiety Probiotic Product (PROBIOTIC BLEND PO) tacrolimus (PROTOPIC) 0.1 % external ointment Apply thin layer to psoriasis on thinner skin of face/genitals up to twice daily as needed. Qty: 60 g, Refills: 0 Associated Diagnoses: Psoriasis tretinoin (RETIN-A) 0.05 % external cream Apply topically at bedtime Qty: 45 g, Refills: 0 Associated Diagnoses: Acne, unspecified acne type triamcinolone (KENALOG) 0.1 % external ointment Apply topically 2 times daily. To psoriasis on bodyor arms/legs until healed then stop Qty: 80 g, Refills: 0 Associated Diagnoses: Psoriasis Allergies Allergies Allergen Reactions Vancomycin documented in this encounter Medications at Time [...] days for 2 doses. 2 tablet 11/20/2024 documented as of this encounter Progress Notes * Fatemeh Castañeda PA-C - 11/22/2024 10:25 AM CDT Cardiology consultation received. Patient was discharged from the ER prior to being seen. Fatemeh Castañeda PA-C documented in this encounter H&P Notes * Luis Angel Leone MD - 11/22/2024 6:06 AM CDT [facility] History and Physical - Hospitalist Service Date of Admission: 11/22/2024 Assessment & Plan Kim Clark is a 24 year old female with a history of supraventricular tachycardia status post ablation admitted on 11/22/2024. She re-presents to the emergency department with known influenza B after having episodes of tachycardia at home into the 150 range. Was in contact with on-call cardiology who recommended return to the emergency department for echocardiogram. Intermittent tachycardia: Suspect sinus tachycardia as a physiologic response to febrile illness with influenza B. Had sinus tachycardia at [facility] emergency department on EKG. Currently in normal sinus rhythm. History of SVT without known recurrence after ablation in 2021. - Continue metoprolol XL 12.5 mg twice daily - Cardiac telemetry - Echocardiogram ordered per cardiology recommendations; ordered as pending discharge - Cardiology consulted - Anticipate discharge following echocardiogram - As needed Robitussin, steps that - Acetaminophen, ibuprofen; Protonix while on ibuprofen on paxil History of supraventricular tachycardia: Ablation in August 2021. Has had ~10 outpatient cardiac monitoring devices since ablation for symptoms, no recurrence noted (at least on recent testing review) - Cardiac telemetry with echocardiogram as above Nocturnal gasping episodes: Describes a history of gasping as she is falling asleep. Never evaluated for obstructive sleep apnea in the past. This is not associated only with current influenza, but also - Recommend outpatient sleep study when recovered from influenza Generalized anxiety disorder with moderate major depression: - Continue prior to admission paroxetine Diet: Regular diet DVT Prophylaxis: Pneumatic Compression Devices Archuleta Catheter: Not present Lines: None Cardiac Monitoring: None Code Status: Full code Clinically Significant Risk Factors Present on Admission # Anemia: based on hgb <11 # Obesity: Estimated body mass index is 32.28 kg/m?? as calculated from the following: Height as of 11/21/24: 1.676 m (5' 6). Weight as of 11/21/24: 90.7 kg (200 lb). Disposition Plan Medically Ready for Discharge: Anticipated Today pending echocardiogram Luis Angel Leone MD Hospitalist Service [facility] Securely message with [employer] (more info) Text page via [facility] Paging/Directory Chief Complaint Tachycardia, lightheadedness History is obtained from the patient, chart review, discussion with Dr. Griffin in the emergency department. History of Present Illness Kim Clark is a 24 year old female who has a history of SVT status post ablation and now new diagnosis influenza with symptom onset Tuesday presenting for tachycardia. Patient has had chills, myalgias, cough since Tuesday. Recently diagnosed with influenza. She is presenting to the emergency department at the direction of on-call cardiology for cardiac monitoring and echocardiogram in the setting of tachycardia with history of SVT. Has a history of supraventricular tachycardia with ablation in 2021. Repeated outpatient Holter monitor since that time for symptoms of palpitations have been reassuring with no recurrence of her SVT. Patient was having elevated heart rates for which she went to [facility] emergency department 11/21 late. Heart rates in the 120s, improved with IV fluid administration. Discharged with recommendation to return if she had tachycardia that persisted. Patient got home, described lightheadedness with heart rates in the 140s-150s range. Has an Apple Watch on and from around 2:45 PM until 3:15 AM, was having heart rates in the 130 up into the 150 range before tapering back down into the 120 range. No rhythm strips are available by this, only heart rates. She does not recall having any fevers at that time, was on acetaminophen. She contacted cardiology on-call who recommended either she take an additional dose of her metoprolol XL 12.5 mg or present to the emergency department for an echocardiogram to rule out myocarditis or similar issue. Patient returned to the emergency department, and her heart rates have normalized in the 80s. Troponin trend is undetectable. No pericardial rub or description of discomfort suggestive of pericarditis. Dr. Griffin was in contact with Dr. Waller of cardiology, who again recommended echocardiogram given her repeated ER visits over the past 2 days. Met with patient. Exam is clinically reassuring, as is Heart rate trend on her Apple watch. Increase in subsequent decrease in heart rate seems less consistent with any recurrence of SVT. Suspect she has sinus tachycardia related to her acute influenza diagnosis. Had sinus tachycardia at [facility] emergency department as well, which would fit with this. Discussed this with the patient in the emergency department, and she is understanding. In the past she had been told by her cartoon designer that tachycardia persisting into the 45 [id number] range might be problematic, but suspect this was in reference to when she had SVT with heart rates in the 180-200 range. When she was told to return to the emergency department if her tachycardia persisted, a duration of persistence was not clarified. Discussed that I would not anticipate any structural change from sinus tachycardia in the 130s or 150s for an hour or so, but could potentially resultin reduced ejection fraction if present for days to weeks. Discussed Tamiflu treatment. Symptoms with onset on Tuesday, likely late for Tamiflu. Patient declines when offered. She is not vaccinated against influenza this year. Patient tells me that she will be taking her a.m. metoprolol XL 12.5 mg dose here in the emergency department as she has her medications with her. Past Medical History Past Medical History: Diagnosis Date Anxiety Chronic kidney disease stones, history of infections Depressive disorder Gastroesophageal reflux disease Psoriasis Seizure (H) 05/02/2019 no seizure since 2017 SVT (supraventricular tachycardia) Past Surgical History Past Surgical History: Procedure Laterality Date EP ABLATION SVT N/A 08/28/2021 Procedure: EP Ablation SVT; Surgeon: Galo Burrell MD; Location: [facility] CARDIAC BEHAVIORAL THERAPY COORDINATOR ESOPHAGOSCOPY, GASTROSCOPY, DUODENOSCOPY (EGD), COMBINED N/A 06/26/2021 Procedure: ESOPHAGOGASTRODUODENOSCOPY (EGD) (fv); Surgeon: Rey Sheppard MD; Location: GI ESOPHAGOSCOPY, GASTROSCOPY, DUODENOSCOPY (EGD), COMBINED N/A 09/12/2023 Procedure: Esophagoscopy, gastroscopy, duodenoscopy (EGD), combined; Surgeon: Rey García MD; Location: GI GENITOURINARY SURGERY kidney Prior to Admission Medications Prior to Admission Medications Prescriptions Last Dose Informant Patient Reported? Taking? Digestive Enzymes (DIGESTIVE ENZYME PO) Yes No LORazepam (ATIVAN) 0.5 MG tablet No No Sig: Take 1 tablet (0.5 mg) by mouth daily as needed for anxiety Multiple Vitamin (MULTIVITAMIN ADULT PO) Yes No PARoxetine (PAXIL) 40 MG tablet No No Sig: Take 1 tablet (40 mg) by mouth every morning. NEED APPT FOR FURTHER REFILLS. Probiotic Product (PROBIOTIC BLEND PO) Yes No clindamycin (CLEOCIN T) 1 % external lotion No No Sig: Apply topically 2 times daily fluconazole (DIFLUCAN) 150 MG tablet No No Sig: Take 1 tablet (150 mg) by mouth every 3 days for 2 doses. ketoconazole (NIZORAL) 2 % external shampoo No No Sig: Use every 1-2 days when flared. Leave in few minutes before rinsing. Use twice weekly to prevent flares. levonorgestrel (MIRENA) 52 MG (20 mcg/day) IUD Yes No Sig: by Intrauterine route once metoprolol succinate ER (TOPROL XL) 25 MG 24 hr tablet No No Sig: Take 0.5 tablets (12.5 mg) by mouth daily. omeprazole (PRILOSEC) [address] capsule No No Sig: Take 1 capsule (40 mg) by mouth daily. tacrolimus (PROTOPIC) 0.1 % external ointment No No Sig: Apply thin layer to psoriasis on thinner skin of face/genitals up to twice daily as needed. tretinoin (RETIN-A) 0.05 % external cream No No Sig: Apply topically at bedtime triamcinolone (KENALOG) 0.1 % external ointment No No Sig: Apply topically 2 times daily. To psoriasis on body or arms/legs until healed then stop Facility-Administered Medications Last Administration Doses Remaining sodium chloride (PF) 0.9% PF flush 3 mL None recorded Physical Exam Vital Signs: Temp: 98.5 ??F (36.9 ??C) Temp src: Temporal BP: 127/71 Pulse: 89 Resp: 10 SpO2: 100 %O2 Device: None (Room air) General Appearance: Nontoxic, generally well-appearing 24-year-old female resting in bed. Eyes: No scleral icterus or injection HEENT: Normocephalic and atraumatic Respiratory: Breath sounds are clear bilateral auscultation without wheezes or crackles. Occasionalcoughing jags which are nonproductive. Cardiovascular: Regular rate and rhythm. Heart rate in the mid 80s. No rub or murmur Musculoskeletal: Muscular tone and bulk intact in extremities and appropriate for age. Neurologic: Alert, conversant, appropriate in conversation. Mental status is grossly intact. Psychiatric: Very pleasant, normal affect Medical Decision Making 65 MINUTES SPENT BY ME on the date of service doing chart review, history, exam, documentation & further activities per the note. Data I have personally reviewed the following data over the past 24 hrs: 4.0 \ 10.9 (L) / 149 (L) 138 106 8.6 / 106 (H) 3.7 22 0.66 \ Trop: <6 BNP: N/A TSH: N/A T4: N/A A1C: N/A Procal: N/A CRP: 13.82 (H) Lactic Acid: N/A Imaging results reviewed over the past 24 hrs: Recent Results (from the past 24 hours) Chest XR, PA & LAT Narrative EXAM: XR CHEST 2 VIEWS LOCATION: [facility] DATE: 11/22/2024 INDICATION: Cough and dyspnea. COMPARISON: 11/20/2024 Impression IMPRESSION: Negative chest. documented in this encounter ED Notes * Damaris Maxwell RN - 11/22/2024 7:30 AM CDT Patient wanting to go home and do echo outpatient - echo called and stated would be down shortly for procedure. Dr Dale updated. * Meagan Osei RN - 11/22/2024 6:[address] [facility] ED Nurse Handoff Report ED Chief complaint: Chest Pain ED Diagnosis: Final diagnoses: Shortness of breath Tachycardia Near syncope Influenza B Code Status: To be addressed by admitting team Allergies: Allergies Allergen Reactions Vancomycin Patient Story: Pt arrives via EMS. Per EMS pt recently tested positive for influenza B. Pt has beenexperiencing flu like symptoms since Tuesday including fevers, chills, body aches, and an intermittently racing HR. Pt was seen by EMS and decided to stay home, and she later went to [facility] ER. Pt wasthen given fluids, a work up was done and pt was discharged home. Pt reports as she got home she received a call from cardiology telling her to come to this area/ER r/t concers for inflammation of the heart. Per pt the recorder gravity prospecting told her he would put a note in her chart. Pt also reports [facility] to being seen at [facility]. Also per EMS pt endorses 6/10 chest heaviness as well of shortness of breath when she falls asleep. 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 EMS placed pt on 2L oxygen for comfort. Pt reports When I fall asleep I wake up gasping. Hx of SVT and ablation in 2021. Focused Assessment: Abnormal Labs Resulted from Time of ED Arrival to Time of ED Departure BASIC METABOLIC PANEL - Abnormal Result Value Sodium 138 Potassium 3.7 Chloride 106 Carbon Dioxide (CO2) 22 Anion Gap 10 Urea Nitrogen 8.6 Creatinine 0.66 GFR Estimate >90 Calcium 8.5 (*) Glucose 106 (*) CRP INFLAMMATION - Abnormal CRP Inflammation 13.82 (*) CBC WITH PLATELETS AND DIFFERENTIAL - Abnormal WBC Count 4.0 RBC Count 4.30 Hemoglobin 10.9 (*) Hematocrit 34.4 (*) MCV 80 MCH 25.3 (*) MCHC 31.7 RDW 14.0 Platelet Count 149 (*) % Neutrophils 68 % Lymphocytes 20 % Monocytes 9 % Eosinophils 2 % Basophils 1 % Immature Granulocytes 0 NRBCs per 100 WBC 0 Absolute Neutrophils 2.7 Absolute Lymphocytes 0.8 Absolute Monocytes 0.4 Absolute Eosinophils 0.1 Absolute Basophils 0.0 Absolute Immature Granulocytes 0.0 Absolute NRBCs 0.0 No orders to display Treatments and/or interventions provided: Medications - No data to display Patient's response to treatments and/or interventions: Unchanged To be done/followed up on inpatient unit: Follow Plan of Care Does this patient have any cognitive concerns?: A&Ox4 Activity level - Baseline/Home: Independent Activity Level - Current: Independent Patient's Preferred language: Guinean Animal Pathologist Needed?: No Isolation: Droplet Infection: Not Applicable Influenza Patient tested for COVID 19 prior to admission: NO Bariatric?: No Vital Signs: Vitals: 11/22/24 0500 11/22/24 0535 11/22/24 0539 11/22/24 0540 BP: 127/71 Pulse: 88 86 85 89 Resp: 22 19 10 Temp: TempSrc: SpO2: 97% 100% Cardiac Rhythm:Cardiac Rhythm: Normal sinus rhythm Was the PSS-3 completed: Yes What interventions are required if any? Family Comments: Family at Bedside OBS brochure/video discussed/provided to patient/family: N/A For the majority of the shift this patient's behavior was Green. Behavioral interventions performed were None. ED NURSE PHONE NUMBER: *[id number] * Meagan Osei RN - 11/22/2024 4:20 AM CDT Pt arrives via EMS. Per EMS pt recently tested positive for influenza B. Pt has been experiencing flu like symptoms since Tuesday including fevers, chills, body aches, and an intermittently racing HR.Pt was seen by EMS and decided to stay home, and she later went to [facility] ER. Pt was then given fluids, a work up was done and pt was discharged home. Pt reports as she got home she received a call from cardiology telling her to come to this area/ER r/t concers for inflammation of the heart. Per ptthe recorder gravity prospecting told her he would put a note in her chart. Pt also reports she went to the ER in [facility] prior to being seen at [facility]. Also per EMS pt endorses 6/10 chest heaviness as well of shortness of breath when she falls asleep. 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 EMS placed pt on 2 L oxygen for comfort. Pt reports When I fall asleep I wake up gasping. Hx of SVT and ablation in 2021. * Elizabeth Griffin MD - 11/22/2024 4:03 AM CDT Emergency Department Note History of Present Illness Chief Complaint Chest Pain HPI Kim Clark is a 24 year old female istory significant for generalized anxiety disorder, chronickidney disease, major depressive disorder, and SVT who presents for evaluation of lightheadedness. She reports she started feeling sick on Tuesday, 3 days ago with body aches after working 3 nights. She reports she works at [employer]. She also reports associated tachycardia which she monitors on her apple watch over past 3 days. She also reports testing positive for influenza B couple days ago. She reports with her past history of of SVT and her apple watch suggesting tachycardia between 100-130s, she went to [place] ER earlier tonight. She was discharged an hour prior to arrival. She reports while driving back to home from the hospital she started experiencing shortness of breath and lightheadedness. She also reports to experiencing burning chest discomfort. She reached home and called an environmental aid cardiology Dr. Waller who she reports asked her to come back to ER to get admitted overnight and suggested an Echo in the morning. She reports to experiencing fever of 101 at home one time. She denies any nausea or vomiting. She reports she had diarrhea few days before all these symptoms which has been resolved since. She reports to taking ibuprofen and Tylenol at home. She took last ibuprofen [id number] and last Tylenol at 0000. She states she will have someone get her daughter to babysit while she gets admitted in the hospital. Independent Historian None Review of External Notes I reviewed the chest XR from 11/20/2024 IMPRESSION: Negative chest. Past Medical History Medical History and Problem List Eosinophilic esophagitis Anxiety Depression Tobacco abuse SVT Psoriasis Seizure Nephrolithiasis Medications Mirena Ativan Toprol Omeprazole Paxil Surgical History SVT cardiac ablation Kidney surgery Physical Exam Patient Vitals for the past 24 hrs: BP Temp Temp src Pulse Resp SpO2 11/22/24 0540 -- -- -- 89 10 100 % 11/22/24 0539 127/71 -- -- 85 -- -- 11/22/24 0535 -- -- -- 86 19 97 % 11/22/24 0500 -- -- -- 88 22 -- 11/22/24 0405 (!) 141/79 98.5 ??F (36.9 ??C) Temporal 100 18 99 % Physical Exam General: Patient is alert and normal appearing. HEENT: Head atraumatic Eyes: pupils equal and reactive. Conjunctiva clear Nares: patent Oropharynx: no lesions, uvula midline, no palatal draping, normal voice, no trismus Neck: Supple without lymphadenopathy, no meningismus Chest: Heart regular rate and rhythm. Lungs: Equal clear to auscultation with no wheeze or rales Abdomen: Soft, non tender, nondistended, normal bowel sounds Back: No costovertebral angle tenderness, no midline C, T or L spine tenderness Neuro: Grossly nonfocal, normal speech, strength equal bilaterally, CN 2-12 intact Extremities: No deformities, equal radial and DP pulses. No clubbing, cyanosis. No edema Skin: Warm and dry with no rash. Diagnostics Lab Results Labs Ordered and Resulted from Time of ED Arrival to Time of ED Departure BASIC METABOLIC PANEL - Abnormal Result Value Sodium 138 Potassium 3.7 Chloride 106 Carbon Dioxide (CO2) 22 Anion Gap 10 Urea Nitrogen 8.6 Creatinine 0.66 GFR Estimate >90 Calcium 8.5 (*) Glucose 106 (*) CRP INFLAMMATION - Abnormal CRP Inflammation 13.82 (*) CBC WITH PLATELETS AND DIFFERENTIAL - Abnormal WBC Count 4.0 RBC Count 4.30 Hemoglobin 10.9 (*) Hematocrit 34.4 (*) MCV 80 MCH 25.3 (*) MCHC 31.7 RDW 14.0 Platelet Count 149 (*) % Neutrophils 68 % Lymphocytes 20 % Monocytes 9 % Eosinophils 2 % Basophils 1 % Immature Granulocytes 0 NRBCs per 100 WBC 0 Absolute Neutrophils 2.7 Absolute Lymphocytes 0.8 Absolute Monocytes 0.4 Absolute Eosinophils 0.1 Absolute Basophils 0.0 Absolute Immature Granulocytes 0.0 Absolute NRBCs 0.0 TROPONIN T, HIGH SENSITIVITY - Normal Troponin T, High Sensitivity <6 ERYTHROCYTE SEDIMENTATION RATE AUTO Imaging No orders to display EKG ECG results from 11/22/24 EKG 12-lead, tracing only Value Systolic Blood Pressure Diastolic Blood Pressure Ventricular Rate 91 Atrial Rate 91 VT Interval 148 QRS Duration 84 QT 358 QTc 440 P Central 31 R AXIS 33 T Central 20 Interpretation ECG Sinus rhythm Normal ECG When compared with ECG of 21-Nov-2024 22:53, No significant change was found Interepreted by Elizabeth Griffin MD at 0453 Independent Interpretation None ED Course Medications Administered Medications - No data to display Procedures Procedures Discussion of Management Admitting Hospitalist, Dr. Leone Cardiology, Dr. Waller 0556 ED Course ED Course as of 11/22/24 0619 Noa November 22, 2024 0427 I obtained the history and examined the patient as above. [address] Leone from the hospitalist service regarding the patient's presentation, findings here in the ED, and plan of care. 0398 I rechecked and updated the patient. Additional Documentation None Medical Decision Making / Diagnosis [facility] Diagnoses: None MIPS None [facility] Kim Clark is a 24 year old female with history of SVT as well as intermittent palpitations with frequent ED visits with multiple Holter monitors and patient not desiring ablation in the past whopresents to the emergency department with continued tachycardia tachycardia despite ED visit and fluids yesterday. Patient was diagnosed with influenza B. She continues to feel short of breath as well as lightheaded when she is having high heart rates. She has an Apple Watch and has sustained heartrates in the 140s at home between 2 and 3 AM. She states she was resting and could not get her heart rate to reduce. She is taken Tylenol and ibuprofen for fevers. She has had myalgias and cough asso ciated with this influenza. Chest x-ray done at [facility] ED a couple hours prior to arrival here was negative for infiltrate or pulmonary edema. EKG here with sinus rhythm with no acute ischemic changes no evidence of pericarditis. Troponins negative making myocarditis unlikely. CRP is increased fromyesterday but likely related to her active influenza B infection. Patient talked to Dr. Waller in the cardiology clinic she has followed there for SVT prior to arrival. He recommended she come to the emergency department for observation admission and echocardiogram to ensure no effusion. Patient has had normal heart rates here in the emergency department even with walking. I did discuss with Dr. Gordon he is recommending observation admission and echocardiogram. I did offer patient to discharge and do this as an outpatient given normal heart rates but she prefers to do it here in the hospital. Patient will be admitted to observation with Dr. Leone for echocardiogram and cardiology consultation. She felt comfortable with this plan and all questions and concerns addressed Disposition The patient was admitted to the hospital. Diagnosis ICD-10-CM 1. Shortness of breath R06.02 2. Tachycardia R00.0 3. Near syncope R55 4. Influenza B J10.1 Scribe Disclosure: Cira Allysongeroge Marie, dior serving as a scribe at 4:03 AM on 11/22/2024 to document services personally performed by Elizabeth Griffin MD based on my observations and the provider's statements to me. Elizabeth Griffin MD 11/22/24 0622 * Rey Adler, RN - 11/22/2024 4:00 AM CDT Bed: ED03 Expected date: 11/22/24 Expected time: 3:59 AM Means of arrival: Ambulance Comments: [address] 596 24F pt told to return to [place] for poss inflammation of heart documented in this encounter Miscellaneous Notes * Pharmacy-Admission Medication History - Rain Hernandez RPH - 11/22/2024 9:41 AM CDT Pharmacist Admission Medication History Admission medication history is complete. The information provided in this note is only as accurateas the sources available at the time of the update. Information Source(s): Patient and CareEverywhere/SureScripts via in-person Changes made to COMPUTER TECHNOLOGY TRAINER medication list: Added: None Deleted: MVI, digestive enzymes, probiotic Changed: None Allergies reviewed with patient and updates made in EHR: no Medication History Completed By: Rain Hernandez RPH 11/22/2024 9:41 AM Current Facility-Administered Medications for the 11/22/24 encounter (Hospital Encounter) Medication sodium chloride (PF) 0.9% PF flush 3 mL COMPUTER TECHNOLOGY TRAINER Med List Medication Sig Last Dose/Taking clindamycin (CLEOCIN T) 1 % external lotion Apply topically 2 times daily (Patient taking differently: Apply topically 2 times daily as needed.) Taking Differently fluconazole (DIFLUCAN) 150 MG tablet Take 1 tablet (150 mg) by mouth every 3 days for 2 doses. (Patient taking differently: Take 150 mg by mouth every 3 days. Started 11/20/24) 11/20/2024 ketoconazole (NIZORAL) 2 % external shampoo Use every 1-2 days when flared. Leave in few minutes before rinsing. Use twice weekly to prevent flares. Taking metoprolol succinate ER (TOPROL XL) 25 MG 24 hr tablet Take 0.5 tablets (12.5 mg) by mouth daily. 11/22/2024 Morning omeprazole (PRILOSEC) [address] capsule Take 1 capsule (40 mg) by mouth daily. 11/22/2024 Morning PARoxetine (PAXIL) 40 MG tablet Take 1 tablet (40 mg) by mouth every morning. NEED APPT FOR FURTHERREFILLS. 11/22/2024 Morning tacrolimus (PROTOPIC) 0.1 % external ointment Apply thin layer to psoriasis on thinner skin of face/genitals up to twice daily as needed. Taking tretinoin (RETIN-A) 0.05 % external cream Apply topically at bedtime (Patient taking differently: Apply topically nightly as needed.) Taking Differently triamcinolone (KENALOG) 0.1 % external ointment Apply topically 2 times daily. To psoriasis on bodyor arms/legs until healed then stop Taking * Provider Notification - Luis Angel Leone MD - 11/22/2024 7:03 AM CDT Brief note, history and physical dictation pending: Patient has had chills, myalgias, cough since Tuesday. Recently diagnosed with influenza. She is presenting to the emergency department at the direction of on-call cardiology for cardiac monitoring and echocardiogram in the setting of tachycardia with history of SVT. Has a history of supraventricular tachycardia with ablation in 2021. Repeated outpatient Holter monitor since that time for symptoms of palpitations have been reassuring with no recurrence of her SVT. Patient was having elevated heart rates for which she went to [facility] emergency department 5/14 lateevening. Heart rates in the 120s, improved with IV fluid administration. Discharged with recommendation to return if she had tachycardia that persisted. Patient got home, described lightheadedness with heart rates in the 140s-150s range. Has an Apple Watch on and from around 2:45 PM until 3:15 AM, was having heart rates in the 130 up into the 150 range before tapering back down into the 120 range. No rhythm strips are available by this, only heart rates. She does not recall having any fevers at that time, was on acetaminophen. She contacted cardiology on-call who recommended either she take an additional dose of her metoprolol XL 12.5 mg or present to the emergency department for an echocardiogram to rule out myocarditis or similar issue. Patient returned to the emergency department, and her heart rates have normalized in the 80s. Troponin trend is undetectable. No pericardial rub or description of discomfort suggestive of pericarditis. Dr. Griffin was in contact with Dr. Waller of cardiology, who again recommended echocardiogram given her repeated ER visits over the past 2 days. Met with patient. Exam is clinically reassuring, as is Heart rate trend on her Apple watch. Increase in subsequent decrease in heart rate seems less consistent with any recurrence of SVT. Suspect she has sinus tachycardia related to her acute influenza diagnosis. Had sinus tachycardia at [facility] emergency department as well, which would fit with this. Discussed this with the patient in the emergency department, and she is understanding. In the past she had been told by her cartoon designer that tachycardia persisting into the 45 [id number] range might be problematic, but suspect this was in reference to when she had SVT with heart rates in the 180-200 range. When she was told to return to the emergency department if her tachycardia persisted, a duration of persistence was not clarified. Discussed that I would not anticipate any structural change from sinus tachycardia in the 130s or 150s for an hour or so, but could potentially resultin reduced ejection fraction if present for days to weeks. Discussed Tamiflu treatment. Symptoms with onset on Tuesday, likely late for Tamiflu. Patient declines when offered. She is not vaccinated against influenza this year. Echocardiogram ordered Cardiology consulted 1 L lactated ringer bolus Patient tells me that she will be taking her a.m. metoprolol XL 12.5 mg dose here in the emergency department as she has her medications with her. Luis Angel Leone MD 7:29 AM documented in this encounter Plan of Treatment Upcoming Encounters Date Type Department Care Team (Late st Contact Info) Description 12/19/2024 2:00 PM CDT Office Visit [facility] [address] [place] [phone] Lauren Claudio PA-C [id number] [place] [phone] 12/26/2024 7:30 AM CDT Office Visit [facility] [address] [phone] Neil Kent MD [address] [place] [phone] 04/16/2025 11:00 AM CDT Virtual Visit [facility] [address] [place] [phone] Meredith Carrera PA-C [address] [place] [phone] documented as of this encounter Procedures Procedure Name Priority Date/Time Associated Diagnosis Comments ECHO COMPLETE Routine 11/22/2024 10:48 AM CDT CBC WITH PLATELETS AND DIFFERENTIAL STAT 11/22/2024 5:00 AM CDT TROPONIN T, HIGH SENSITIVITY STAT 11/22/2024 5:00 AM CDT CBC WITH PLATELETS & DIFFERENTIAL STAT 11/22/2024 5:00 AM CDT ERYTHROCYTE SEDIMENTATION RATE AUTO STAT 11/22/2024 5:00 AM CDT CRP INFLAMMATION STAT 11/22/2024 5:00 AM CDT BASIC METABOLIC PANEL STAT 11/22/2024 5:00 AM CDT EKG 12-LEAD, TRACING ONLY STAT 11/22/2024 4:45 AM CDT documented in this encounter Results * ECHO COMPLETE (11/22/2024 10:48 AM CDT) LVEF 60-65% CARDIOLOGY RESULTS Anatomical Region Laterality Modality Echocardiography 11/22/2024 9:53 AM CDT Narrative 11/22/2024 1:45 PM CDT [id number]^OTONIEL^LUIS ANGEL^ROSA M [facility] Echocardiography Laboratory [address] [place] [address] Name: KIM CLARK : 2000 Study Date: 11/22/2024 09:53 AM Age: 24 yrs Gender: Female Patient Location: [facility] Reason For Study: Tachycardia Ordering Physician: LUIS ANGEL LEONE Performed By: DAISY Mobley BSA: 2.0 m2 Height: 66 in Weight: 200 lb HR: 71 BP: 127/71 mmHg Procedure Echocardiogram with two-dimensional, color and spectral Doppler. Adequate quality two-dimensional was performed and interpreted. Interpretation Summary Left ventricular systolic function is normal. The visual ejection fraction is 60-65%. The right ventricle is normal in structure, function and size. No significant valve dysfunction. The inferior vena cava was normal in size with preserved respiratory variability. The aortic root is normal size. There is no pericardial effusion. No chnage from prior study dated 06/07/2023. Left Ventricle The left ventricle is normal in structure, function and size. There is normal left ventricular wall thickness. Left ventricular systolic function is normal. The visual ejection fraction is 60-65%. Left ventricular diastolic function is normal. Normal left ventricular wall motion. Right Ventricle The right ventricle is normal in structure, function and size. Atria Normal left atrial size. Right atrial size is normal. Mitral Valve The mitral valve is normal in structure and function. Tricuspid Valve The tricuspid valve is normal in structure and function. The right ventricular systolic pressure is approximated at 16.4 mmHg plus the right atrial pressure. Aortic Valve The aortic valve is normal in structure and function. Pulmonic Valve The pulmonic valve is normal in structure and function. Vessels The aortic root is normal size. Normal size ascending aorta. The inferior vena cava was normal in size with preserved respiratory variability. Pericardium There is no pericardial effusion. MMode/2D Measurements & Calculations IVSd: 0.58 cm LVIDd: 4.7 cm LVIDs: 3.0 cm LVPWd: 0.87 cm FS: 36.5 % LV mass(C)d: 108.2 grams LV mass(C)dI: 54.1 grams/m2 Ao root diam: 3.2 cm asc Aorta Diam: 2.5 cm LVOT diam: 2.1 cm LVOT area: 3.3 cm2 Ao root diam index Ht(cm/m): 1.9 Ao root diam index BSA (cm/m2): 1.6 Asc Ao diam index BSA (cm/m2): 1.2 Asc Ao diam index Ht(cm/m): 1.5 LA Volume (BP): 46.1 ml LA Volume Index (BP): 23.1 ml/m2 RWT: 0.37 TAPSE: 2.3 cm Doppler Measurements & Calculations MV E max anuel: 86.6 cm/sec MV A max anuel: 45.2 cm/sec MV E/A: 1.9 MV dec slope: 334.0 cm/sec2 MV dec time: 0.26 sec PA acc time: 0.18 sec TR max anuel: 202.8 cm/sec TR max P.4 mmHg E/E' av.2 Lateral E/e': 4.5 Medial E/e': 5.8 RV S Anuel: 14.8 cm/sec Report approved by: Samantha Singh MD on 11/22/2024 01:45 PM Procedure Note Samantha Singh MD - 11/22/2024 [id number]^OTONIEL^LUIS ANGEL^ROSA M [facility] Echocardiography Laboratory [address] [place] [id number] Name: KIM CLARK : 2000 Study Date: 11/22/2024 09:53 AM Age: 24 yrs Gender: Female Patient Location: [facility] Reason For Study: Tachycardia Ordering Physician: LUIS ANGEL LEONE Performed By: DAISY Mobley BSA: 2.0 m2 Height: 66 in Weight: 200 lb HR: 71 BP: 127/71 mmHg Procedure Echocardiogram with two-dimensional, color and spectral Doppler.Adequate quality two-dimensional was performed and interpreted. Interpretation Summary Left ventricular systolic function is normal. The visual ejection fraction is 60-65%. The right ventricle is normal in structure, function and size. No significant valve dysfunction. The inferior vena cava was normal in size with preserved respiratory variability. The aortic root is normal size. There is no pericardial effusion. No chnage from prior study dated 06/07/2023. Left Ventricle The left ventricle is normal in structure, function and size. There isnormal left ventricular wall thickness. Left ventricular systolic function isnormal. The visual ejection fraction is 60-65%. Left ventricular diastolicfunction is normal. Normal left ventricular wall motion. Right Ventricle The right ventricle is normal in structure, function and size. Atria Normal left atrial size. Right atrial size is normal. Mitral Valve The mitral valve is normal in structure and function. Tricuspid Valve The tricuspid valve is normal in structure and function. The rightventricular systolic pressure is approximated at 16.4 mmHg plus the right atrialpressure. Aortic Valve The aortic valve is normal in structure and function. Pulmonic Valve The pulmonic valve is normal in structure and function. Vessels The aortic root is normal size. Normal size ascending aorta. The inferiorvena cava was normal in size with preserved respiratory variability. Pericardium There is no pericardial effusion. MMode/2D Measurements & Calculations IVSd: 0.58 cm LVIDd: 4.7 cm LVIDs: 3.0 cm LVPWd: 0.87 cm FS: 36.5 % LV mass(C)d: 108.2 grams LV mass(C)dI: 54.1 grams/m2 Ao root diam: 3.2 cm asc Aorta Diam: 2.5 cm LVOT diam: 2.1 cm LVOT area: 3.3 cm2 Ao root diam index Ht(cm/m): 1.9 Ao root diam index BSA (cm/m2): 1.6 Asc Ao diam index BSA (cm/m2): 1.2 Asc Ao diam index Ht(cm/m): 1.5 LA Volume (BP): 46.1 ml LA Volume Index (BP): 23.1 ml/m2 RWT: 0.37 TAPSE: 2.3 cm Doppler Measurements & Calculations MV E max anuel: 86.6 cm/sec MV A max anuel: 45.2 cm/sec MV E/A: 1.9 MV dec slope: 334.0 cm/sec2 MV dec time: 0.26 sec PA acc time: 0.18 sec TR max anuel: 202.8 cm/sec TR max P.4 mmHg E/E' av.2 Lateral E/e': 4.5 Medial E/e': 5.8 RV S Anuel: 14.8 cm/sec Report approved by: Samantha Singh MD on 11/22/2024 01:45 PM us Luis Angel Leone MD CV ECHO ORDERABLES Edited Re sult - Final * (ABNORMAL) CBC with platelets and differential (11/22/2024 5:00 AM CDT) [facility] WBC Count 4.0 4.0 - 11.0 10e3/uL 11/22/2024 5:06 AM CDT LABORATORY RBC Count 4.30 3.80 - 5.20 10e6/uL 11/22/2024 5:06 AM CDT LABORATORY Hemoglobin 10.9(L) 11.7 - 15.7 g/dL 11/22/2024 5:06 AM CDT LABORATORY Hematocrit 34.4(L) 35.0 - 47.0 % 11/22/2024 5:06 AM CDT LABORATORY MCV 80 78 - 100 fL 11/22/2024 5:06 AM CDT LABORATORY MCH 25.3(L) 26.5 - 33.0 pg 11/22/2024 5:06 AM CDT LABORATORY MCHC 31.7 31.5 - 36.5 g/dL 11/22/2024 5:06 AM CDT LABORATORY RDW 14.0 10.0 - 15.0 % 11/22/2024 5:06 AM CDT LABORATORY Platelet Count 149(L) 150 - 450 10e3/uL 11/22/2024 5:06 AM CDT LABORATORY % Neutrophils 68 % 11/22/2024 5:06 AM CDT LABORATORY % Lymphocytes 20 % 11/22/2024 5:06 AM CDT LABORATORY % Monocytes 9 % 11/22/2024 5:06 AM CDT LABORATORY % Eosinophils 2 % 11/22/2024 5:06 AM CDT LABORATORY % Basophils 1 % 11/22/2024 5:06 AM CDT LABORATORY % Immature Granulocytes 0 % 11/22/2024 5:06 AM CDT LABORATORY NRBCs per 100 WBC 0 <1 /100 025 5:06 AM CDT LABORATORY Absolute Neutrophils 2.7 1.6 - 8.3 10e3/uL 11/22/2024 5:06 AM CDT LABORATORY Absolute Lymphocytes 0.8 0.8 - 5.3 10e3/uL 11/22/2024 5:06 AM CDT LABORATORY Absolute Monocytes 0.4 0.0 - 1.3 10e3/uL 11/22/2024 5:06 AM CDT LABORATORY Absolute Eosinophils 0.1 0.0 - 0.7 10e3/uL 11/22/2024 5:06 AM CDT LABORATORY Absolute Basophils 0.0 0.0 - 0.2 10e3/uL 11/22/2024 5:06 AM CDT LABORATORY Absolute Immature Granulocytes 0.0 <=0.4 10e3/uL 11/22/2024 5:06 AM CDT LABORATORY Absolute NRBCs 0.0 10e3/uL 11/22/2024 5:06 AM CDT LABORATORY Blood BLOOD SPECIMEN / Unknown Venipuncture / Unknown 11/22/2024 5:00 AM CDT 11/22/2024 5:04 AM CDT Elizabeth Griffin MD LAB - BLOOD ORDERABLES Final Result LABORATORY [facility] [address] 1st floor, [address] [address], [facility] [place] [phone] * (ABNORMAL) CRP inflammation (11/22/2024 5:00 AM CDT) CRP Inflammation 13.82(H) <5.00 mg/L 11/22/2024 5:25 AM CDT LABORATORY Blood BLOOD SPECIMEN / Unknown Venipuncture / Unknown 11/22/2024 5:00 AM CDT 11/22/2024 5:04 AM CDT Elizabeth Griffin MD LAB - BLOOD ORDERABLES Final Result LABORATORY [facility] [address] 1[address] floor, [address] [place] [address], [facility] [place] [phone] * Erythrocyte sedimentation rate auto (11/22/2024 5:00 AM CDT) Erythrocyte Sedimentation Rate 8 0 - 20 mm/hr 11/22/2024 9:20 AM CDT [facility] LABORATORY Blood BLOOD SPECIMEN / Unknown Venipuncture / Unknown 11/22/2024 5:00 AM CDT 11/22/2024 5:04 AM CDT us Elizabeth Griffin MD LAB - BLOOD ORDERABLES Final Result [facility] LABORATORY [facility] [place] [facility] [address] [facility], [address] [id number] * (ABNORMAL) Basic metabolic panel (11/22/2024 5:00 AM CDT) [facility] Sodium 138 135 - 145 mmol/L 11/22/2024 5:25 AM CDT LABORATORY Potassium 3.7 3.4 - 5.3 mmol/L 11/22/2024 5:25 AM CDT LABORATORY Chloride 106 98 - 107 mmol/L 11/22/2024 5:25 AM T LABORATORY Carbon Dioxide (CO2) 22 22 - 29 mmol/L 11/22/2024 5:25 AM T LABORATORY Anion Gap 10 7 - 15 mmol/L 11/22/2024 5:25 AM CDT LABORATORY Urea Nitrogen 8.6 6.0 - 20.0 mg/dL 11/22/2024 5:25 AM T LABORATORY Creatinine 0.66 0.51 - 0.95 mg/dL 11/22/2024 5:25 AM T LABORATORY GFR Estimate >90 >60 mL/min/1.7 3m2 11/22/2024 5:25 AM T LABORATORY Comment:eGFR calculated usin g 2020 CKD-EPI equation. Calcium 8.5(L) 8.8 - 10.4 mg/dL 11/22/2024 5:25 AM T LABORATORY Glucose 106(H) 70 - 99 mg/dL 11/22/2024 5:25 AM T LABORATORY Blood BLOOD SPECIMEN / Unknown Venipuncture / Unknown 11/22/2024 5:00 AM CDT 11/22/2024 5:04 AM CDT us Elizabeth Griffin MD LAB - BLOOD ORDERABLES Final Result LABORATORY [facility] [address] 1[address] floor, [address] [place] [address], [facility] [place] [phone] * Troponin T, High Sensitivity (11/22/2024 5:00 AM CDT) Troponin T, High Sensitivity <6 <=14 ng/L 11/22/2024 5:25 AM CDT LABORATORY Comment: Either a High [...] follow-up, or urgent outpatient provocative testing. Blood BLOOD SPECIMEN / Unknown Venipuncture / Unknown 11/22/2024 5:00 AM CDT 11/22/2024 5:04 AM CDT Elizabeth Griffin MD LAB - BLOOD ORDERABLES Final Result Performing Organization Address [facility]/ZIP Co de Phone Number LABORATORY [facility] [address] 1[address], [address] [place] [address], [facility] [place] [phone] * EKG 12-lead, tracing only (11/22/2024 4:45 AM CDT) Systolic Blood Pressure mmHg RADIOLOGY RESULTS Diastolic Blood Pressure mmHg RADIOLOGY RESULTS Ventricular Rate 91 BPM RAD IOLOGY RESULTS Atrial Rate 91 BPM RADIOLOG Y RESULTS VT Interval 148 ms RADIOLOG Y RESULTS QRS Duration 84 ms RADIOLO GY RESULTS QT 358 ms RADIOLOGY RESULTS QTc 440 ms RADIOLOGY RESULTS P Central 31 degrees RADIOLOGY RESULTS R AXIS 33 degrees RADIOLOGY RESULTS T Central 20 degrees RADIOLOGY RESULTS Interpretation ECG Sinus rhythm Normal ECG When compared with ECG of 21-Nov-2024 22:53, (unconfirmed) No significant change was found Confirmed by GENERATED REPORT, COMPUTER ([id number]), copy editor NIGEL CARD ([id number]) on 11/22/2024 7:57:36 AM RADIOLOGY RESULTS 11/22/2024 4:45 AM CDT 11/22/2024 7:57 AM CDT Elizabeth Griffin MD ECG ORDERABLES Edited Resul t - Final RADIOLOGY RESULTS documented in this encounter Visit Diagnoses Diagnosis Shortness of breath Tachycardia Tachycardia, unspecified Near syncope Syncope and collapse Influenza B Influenza with other respiratory manifestations Shortness of breath Tachycardia Tachycardia, unspecified Influenza B Influenza with other respiratory manifestations Near syncope Syncope and collapse documented in this encounter Administered Medications Inactive Administered Medications - up to 3 most recent administrations Medication Order MAR Action Action Date Dose Rate Site acetaminophen (TYLENOL) Suppository 650 mg 650 mg, Rectal, EVERY 4 HOURS PRN, mild pain, other, and adjunct with moderate or severe pain or per patient request, Starting on Noa 11/22/24 at 0703, Alternate with ibuprofen if ordered. Maximum acetaminophen dose from all sources = 75 mg/kg/day not to exceed 4 grams/day. acetaminophen (TYLENOL) tablet 650 mg 650 mg, Oral, EVERY 4 HOURS PRN, mild pain, other, fever, headaches, and adjunct with moderate or severe pain or per patient request, Starting on Noa 11/22/24 at 0703, Alternate with ibuprofen if ordered. Maximum acetaminophen dose from all sources = 75 mg/kg/day not to exceed 4 grams/day. ondansetron (ZOFRAN ODT) ODT tab 4 mg 4 mg, Oral, EVERY 6 HOURS PRN, nausea/vomiting - 1st line, Starting on Noa 11/22/24 at 0703, This is Step 1 of nausea and vomiting management. If nausea not resolved in 15 minutes, go to Step 2 prochlorperazine (COMPAZINE). With dry hands, peel back foil backing and gently remove tablet. Do not push oral disintegrating tablet through foil backing. Administer immediately on tongue and oral disintegrating tablet dissolves in seconds, then swallow with saliva. Liquid not required. ondansetron (ZOFRAN) injection 4 mg 4 mg, Intravenous, EVERY 6 HOURS PRN, nausea/vomiting - 1st line, Administer over 2-5 Minutes, Starting on Noa 11/22/24 at 0703, Give IF patient unable to tolerate oral medication. This is Step 1 of nausea and vomiting management. If nausea not resolved in 15 minutes, go to Step 2 prochlorperazine (COMPAZINE). pantoprazole (PROTONIX) IV push injection 40 mg 40 mg, Intravenous, EVERY MORNING BEFORE BREAKFAST, First dose on Noa 11/22/24 at 0730 prochlorperazine (COMPAZINE) injection 10 mg 10 mg, Intravenous, EVERY 6 HOURS PRN, nausea/vomiting - 2nd line, Administer over 1-2 Minutes, Starting on Noa 11/22/24 at 0703, Give IF patient unable to tolerate oral medication. This is Step 2 of nausea and vomiting management. Give if nausea not resolved 15 minutes after giving ondansetron (ZOFRAN). If nausea not resolved in 15-30 minutes, Notify provider. prochlorperazine (COMPAZINE) tablet 10 mg 10 mg, Oral, EVERY 6 HOURS PRN, nausea/vomiting - 2nd line, Starting on Noa 11/22/24 at 0703, This is Step 2 of nausea and vomiting management. Give if nausea not resolved 15 minutes after giving ondansetron (ZOFRAN). If nausea not resolved in 15-30 minutes, Notify provider. senna-docusate (SENOKOT-S/PERICOLACE) 8.6-50 MG per tablet 1 tablet 1 tablet, Oral, 2 TIMES DAILY PRN, constipation, Starting on Noa 11/22/24 at 0703, If no bowel movement in 24 hours, increase to 2 tablets by mouth. IF more than 1 constipation PRN medication is ordered, administer step-garcía as indicated, moving to the next step ONLY if prior step ineffective. Step 1: senna-docusate (SENOKOT-S; PERICOLACE) OR bisacodyl (DULCOLAX) EC tablet Step 2: polyethylene glycol (MIRALAX/GLYCOLAX) Step 3: bisacodyl (DULCOLAX) suppository Step 4: enema Hold for loose stools. senna-docusate (SENOKOT-S/PERICOLACE) 8.6-50 MG per tablet 2 tablet 2 tablet, Oral, 2 TIMES DAILY PRN, constipation, Starting on Tue11/22/24 at 0703, IF more than 1 constipation PRN medication is ordered, administer step-garcía as indicated, moving to the next step ONLY if prior step ineffective. Step 1: senna-docusate (SENOKOT-S; PERICOLACE) OR bisacodyl (DULCOLAX) EC tablet Step 2: polyethylene glycol (MIRALAX/GLYCOLAX) Step 3: bisacodyl (DULCOLAX) suppository Step 4: enema Hold for loose stools. documented in this encounter Active and Recently Administered Medications Times are shown in CDT. Scheduled Medication Order 11/20/2024 11/21/2024 11/22/2024 lactated ringers BOLUS 1,000 mL Intravenous, 1,000 mL, ONCE, at 500 mL/hr, Administer over 2 Hours, On Noa 11/22/24 at 0705, For 1 dose 0705 (Canceled Entry - Provider: Orders Generic Provider - Comment: Automatically canceled at discontinue of medication order) metoprolol succinate ER (TOPROL-XL) 24 hr half-tab 12.5 mg 12.5 mg, Oral, DAILY, First dose on Tue11/23/24 at 0800, DO NOT CRUSH. Tablet may be split in half along score line. omeprazole (PriLOSEC) CR capsule 40 mg 40 mg, Oral, DAILY, First dose on Tue11/22/24 at 0800 0800 (Canceled Entry - Provider: Orders Generic Provider - Comment: Automatically canceled at discontinue of medication order) pantoprazole (PROTONIX) IV push injection 40 mg 40 mg, Intravenous, EVERY MORNING BEFORE BREAKFAST, First dose on Noa 11/22/24 at 0730 0730 (Canceled Entry - Provider: Orders Generic Provider - Comment: Automatically canceled at discontinue of medication order) sodium chloride (PF) 0.9% PF flush 3 mL 3 mL, Intracatheter, EVERY 8 HOURS, First dose on Noa 11/22/24 at 0705, And Q1H PRN, to lock peripheral IV dormant line. 0705 (Canceled Entry - Provider: Orders Generic Provider - Comment: Automatically canceled at discontinue of medication order) PRN Medication Order 11/20/2024 11/21/2024 11/22/2024 acetaminophen (TYLENOL) Suppository 650 mg(Linked Group 1) 650 mg, Rectal, EVERY 4 HOURS PRN, mild pain, other, and adjunct with moderate or severe pain or per patient request, Starting on Noa 11/22/24 at 0703, Alternate with ibuprofen if ordered. Maximum acetaminophen dose from all sources = 75 mg/kg/day not to exceed 4 grams/day. acetaminophen (TYLENOL) tablet 650 mg(Linked Group 1) 650 mg, Oral, EVERY 4 HOURS PRN, mild pain, other, fever, headaches, and adjunct with moderate or severe pain or per patient request, Starting on Noa 11/22/24 at 0703, Alternate with ibuprofen if ordered. Maximum acetaminophen dose from all sources = 75 mg/kg/day not to exceed 4 grams/day. benzocaine-menthol (CHLORASEPTIC) 6-10 MG lozenge 1 lozenge 1 lozenge, Buccal, EVERY 1 HOUR PRN, sore throat, Starting on Noa 11/22/24 at 0703 bisacodyl (DULCOLAX) suppository 10 mg 10 mg, Rectal, DAILY PRN, constipation, Starting on Noa 11/22/24 at 0703, IF more than 1 constipation PRN medication is ordered, administer step-garcía as indicated, moving to the next step ONLY if prior step ineffective. Step 1: senna-docusate (SENOKOT-S; PERICOLACE) OR bisacodyl (DULCOLAX) EC tablet Step 2: polyethylene glycol (MIRALAX/GLYCOLAX) Step 3: bisacodyl (DULCOLAX) suppository Step 4: enema Hold for loose stools. guaiFENesin (ROBITUSSIN) 20 mg/mL solution 200 mg 200 mg, Oral, EVERY 4 HOURS PRN, cough, Starting on Noa 11/22/24 at 0703 ibuprofen (ADVIL/MOTRIN) tablet 600 mg 600 mg, Oral, EVERY 6 HOURS PRN, inflammatory pain, fever, Starting on Noa 11/22/24 at 0703, Give with food. lidocaine (LMX4) cream Topical, EVERY 1 HOUR PRN, pain, with VAD insertion or accessing implanted port., Starting on Noa 11/22/24 at 0703, Do NOT give if patient has a history of allergy to any local anesthetic or any david product. Apply at least 30 minutes prior to VAD insertion or port access. In divided doses as needed for size of site for VAD insertion with MAX Dose: 2.5 g ( of 5 g tube). lidocaine 1 % 0.1-1 mL 0.1-1 mL, Other, EVERY 1 HOUR PRN, mild pain with VAD insertion., Starting on Noa 11/22/24 at 0703, Do NOT give if patient has a history of allergy to any local anesthetic or any david product. MAX dose 1 mL subcutaneous OR intradermal in divided doses as needed for VAD insertion. LORazepam (ATIVAN) tablet 0.5 mg 0.5 mg, Oral, DAILY PRN, anxiety, Starting on Noa 11/22/24 at 0703 melatonin tablet 5 mg 5 mg, Oral, AT BEDTIME PRN, sleep, Starting on Noa 11/22/24 at 0703, Do not give unless at least 6 hours of uninterrupted sleep is expected. If patient has multiple medications ordered PRN sleep/insomnia, offer melatonin first. ondansetron (ZOFRAN ODT) ODT tab 4 mg(Linked Group 2) 4 mg, Oral, EVERY 6 HOURS PRN, nausea/vomiting - 1st line, Starting on Noa 11/22/24 at 0703, This is Step 1 of nausea and vomiting management. If nausea not resolved in 15 minutes, go to Step 2 prochlorperazine (COMPAZINE). With dry hands, peel back foil backing and gently remove tablet. Do not push oral disintegrating tablet through foil backing. Administer immediately on tongue and oral disintegrating tablet dissolves in seconds, then swallow with saliva. Liquid not required. ondansetron (ZOFRAN) injection 4 mg(Linked Group 2) 4 mg, Intravenous, EVERY 6 HOURS PRN, nausea/vomiting - 1st line, Administer over 2-5 Minutes, Starting on Noa 11/22/24 at 0703, Give IF patient unable to tolerate oral medication. This is Step 1 of nausea and vomiting management. If nausea not resolved in 15 minutes, go to Step 2 prochlorperazine (COMPAZINE). polyethylene glycol (MIRALAX) Packet 17 g 17 g, Oral, 2 TIMES DAILY PRN, constipation, Starting on Noa 11/22/24 at 0703, IF more than 1 constipation PRN medication is ordered, administer step-garcía as indicated, moving to the next step ONLY if prior step ineffective. Step 1: senna-docusate (SENOKOT-S; PERICOLACE) OR bisacodyl (DULCOLAX) EC tablet Step 2: polyethylene glycol (MIRALAX/GLYCOLAX) Step 3: bisacodyl (DULCOLAX) suppository Step 4: enema 1 Packet = 17 grams. Mix each gram with at least 1/2 ounce (15 mL) of water - 8 ounces for 17 g dose, 4 ounces for 8.5 g dose, 2 ounces for 4 g dose. Follow with the same volume of water. Hold for loose stools unless being administered as part of a bowel prep regimen or bowel clean out. prochlorperazine (COMPAZINE) injection 10 mg(Linked Group 3) 10 mg, Intravenous, EVERY 6 HOURS PRN, nausea/vomiting - 2nd line, Administer over 1-2 Minutes, Starting on Noa 11/22/24 at 0703, Give IF patient unable to tolerate oral medication. This is Step 2 of nausea and vomiting management. Give if nausea not resolved 15 minutes after giving ondansetron (ZOFRAN). If nausea not resolved in 15-30 minutes, Notify provider. prochlorperazine (COMPAZINE) tablet 10 mg(Linked Group 3) 10 mg, Oral, EVERY 6 HOURS PRN, nausea/vomiting - 2nd line, Starting on Noa 11/22/24 at 0703, This is Step 2 of nausea and vomiting management. Give if nausea not resolved 15 minutes after giving ondansetron (ZOFRAN). If nausea not resolved in 15-30 minutes, Notify provider. senna-docusate (SENOKOT-S/PERICOLACE) 8.6-50 MG per tablet 1 tablet(Linked Group 4) 1 tablet, Oral, 2 TIMES DAILY PRN, constipation, Starting on Noa 11/22/24 at 0703, If no bowel movement in 24 hours, increase to 2 tablets by mouth. IF more than 1 constipation PRN medication is ordered, administer step-garcía as indicated, moving to the next step ONLY if prior step ineffective. Step 1: senna-docusate (SENOKOT-S; PERICOLACE) OR bisacodyl (DULCOLAX) EC tablet Step 2: polyethylene glycol (MIRALAX/GLYCOLAX) Step 3: bisacodyl (DULCOLAX) suppository Step 4: enema Hold for loose stools. senna-docusate (SENOKOT-S/PERICOLACE) 8.6-50 MG per tablet 2 tablet(Linked Group 4) 2 tablet, Oral, 2 TIMES DAILY PRN, constipation, Starting on Noa 11/22/24 at 0703, IF more than 1 constipation PRN medication is ordered, administer step-garcía as indicated, moving to the next step ONLY if prior step ineffective. Step 1: senna-docusate (SENOKOT-S; PERICOLACE) OR bisacodyl (DULCOLAX) EC tablet Step 2: polyethylene glycol (MIRALAX/GLYCOLAX) Step 3: bisacodyl (DULCOLAX) suppository Step 4: enema Hold for loose stools. sodium chloride (PF) 0.9% PF flush 3 mL 3 mL, Intracatheter, EVERY 1 MIN PRN, line flush, Starting on Noa 11/22/24 at 0703, for peripheral IV flush post IV meds Linked Groups Order Group 1: acetaminophen (TYLENOL) tablet 650 mgJump to med 650 mg, Oral, EVERY 4 HOURS PRN, mild pain, other, fever, headaches, and adjunct with moderate or severe pain or per patient request, Starting on Noa 11/22/24 at 0703, Alternate with ibuprofen if ordered. Maximum acetaminophen dose from all sources = 75 mg/kg/day not to exceed 4 grams/day. Or acetaminophen (TYLENOL) Suppository 650 mgJump to med 650 mg, Rectal, EVERY 4 HOURS PRN, mild pain, other, and adjunct with moderate or severe pain or per patient request, Starting on Noa 11/22/24 at 0703, Alternate with ibuprofen if ordered. Maximum acetaminophen dose from all sources = 75 mg/kg/day not to exceed 4 grams/day. Group 2: ondansetron (ZOFRAN ODT) ODT tab 4 mgJump to med 4 mg, Oral, EVERY 6 HOURS PRN, nausea/vomiting - 1st line, Starting on Noa 11/22/24 at 0703, This is Step 1 of nausea and vomiting management. If nausea not resolved in 15 minutes, go to Step 2 prochlorperazine (COMPAZINE). With dry hands, peel back foil backing and gently remove tablet. Do not push oral disintegrating tablet through foil backing. Administer immediately on tongue and oral disintegrating tablet dissolves in seconds, then swallow with saliva. Liquid not required. Or ondansetron (ZOFRAN) injection 4 mgJump to med 4 mg, Intravenous, EVERY 6 HOURS PRN, nausea/vomiting - 1st line, Administer over 2-5 Minutes, Starting on Noa 11/22/24 at 0703, Give IF patient unable to tolerate oral medication. This is Step 1 of nausea and vomiting management. If nausea not resolved in 15 minutes, go to Step 2 prochlorperazine (COMPAZINE). Group 3: prochlorperazine (COMPAZINE) injection 10 mgJump to med 10 mg, Intravenous, EVERY 6 HOURS PRN, nausea/vomiting - 2nd line, Administer over 1-2 Minutes, Starting on Noa 11/22/24 at 0703, Give IF patient unable to tolerate oral medication. This is Step 2 of nausea and vomiting management. Give if nausea not resolved 15 minutes after giving ondansetron (ZOFRAN). If nausea not resolved in 15-30 minutes, Notify provider. Or prochlorperazine (COMPAZINE) tablet 10 mgJump to med 10 mg, Oral, EVERY 6 HOURS PRN, nausea/vomiting - 2nd line, Starting on Noa 11/22/24 at 0703, This is Step 2 of nausea and vomiting management. Give if nausea not resolved 15 minutes after giving ondansetron (ZOFRAN). If nausea not resolved in 15-30 minutes, Notify provider. Group 4: senna-docusate (SENOKOT-S/PERICOLACE) 8.6-50 MG per tablet 1 tabletJump to med 1 tablet, Oral, 2 TIMES DAILY PRN, constipation, Starting on Noa 11/22/24 at 0703, If no bowel movement in 24 hours, increase to 2 tablets by mouth. IF more than 1 constipation PRN medication is ordered, administer step-garcía as indicated, moving to the next step ONLY if prior step ineffective. Step 1: senna-docusate (SENOKOT-S; PERICOLACE) OR bisacodyl (DULCOLAX) EC tablet Step 2: polyethylene glycol (MIRALAX/GLYCOLAX) Step 3: bisacodyl (DULCOLAX) suppository Step 4: enema Hold for loose stools. Or senna-docusate (SENOKOT-S/PERICOLACE) 8.6-50 MG per tablet 2 tabletJump to med 2 tablet, Oral, 2 TIMES DAILY PRN, constipation, Starting on Noa 11/22/24 at 0703, IF more than 1 constipation PRN medication is ordered, administer step-garcía as indicated, moving to the next step ONLY if prior step ineffective. Step 1: senna-docusate (SENOKOT-S; PERICOLACE) OR bisacodyl (DULCOLAX) EC tablet Step 2: polyethylene glycol (MIRALAX/GLYCOLAX) Step 3: bisacodyl (DULCOLAX) suppository Step 4: enema Hold for loose stools. documented in this encounter Additional Health Concerns Infection Onset Date Last Indicated Resolved Time Influenza 11/21/2024 11/21/2024 11/28/2024 7:42 PM CDT Assessment Noted Time PHQ-9 Depression Total Score: 5 10/25/19 25 10:38 AM CDT documented as of this encounter Care Teams [place] [place] Consultant Relationship Specialty Start Date End Date Esha Grimm PA-C [address] [place] [phone] PCP - General Family Medicine 05/04/23 Diana Desir [facility] [address] [place] [address] Pharmacist Pharmacist 04/17/21 Rain Galaviz PA-C [address] [place] [address] [place] [address] Physician [place] Dermatology 04/28/21 Tavia Wyatt MD [address] [place] [address] [address] [place] [id number] Dermatology 07/14/21 Erica Farrell APRN [employer] [address] [place] [id number] Nurse Practitioner Cardiovascular Disease 09/09/21 Rich Barrett MD [address] [place] [address] Physician Ophthalmology 01/21/22 Neil Kent MD [address] [place] [address] [phone] Dermatology 02/24/22 Diana Desir, [facility] [address] [place], [place] [phone] Assigned [place] Pharmacist 04/07/22 Livan Sharif MD [address] [place] [address] Cardiovascular Disease 05/14/22 Catherine Cm MD [address] [place] [phone] Cardiovascular Disease 07/21/22 Valery Veronica, PA-C [address] [place] [address] Physician [place] [employer] Dermatology 07/21/22 Brea Quinn APRN [employer] [address] [place] [address] Nurse Practitioner Dermatology 09/21/22 Radha Lomeli APRN [employer] [address] [place] [address] Assigned Heart and Vascular Provider 05/28/23 11/29/24 Jelena David OD [address] [facility] [place] [address] MD Ophthalmology 06/15/23 Esha Grimm PA-C [address] [place] [phone] Assigned PCP 07/16/23 Valery Veronica PA-C [address] [place] [address] [phone] Physician [place] [employer] Dermatology 09/19/23 Rey García MD [address] [place] [address] [id number] MD Gastroenterology 09/20/23 Rocky Zepeda DO [address] [place] [address] 084125 Physician Gastroenterology 09/20/23 Philip Dumont MD [address] [place] [address] [phone] Physician Ophthalmology 09/22/23 Meredith Carrera PA-C [address] [place] [address] [phone] Assigned Gastroenterology Provider 11/01/23 Neil Kent MD [address] [place] [address] Dermatology 11/02/23 [place] [address] [place] [address] Neurological Surgery 12/26/23 Audrey Waite PA-C [address] [place] [address] Physician [place] [employer] Dermatology 02/28/24 Valery Veronica PA-C [id number] [address] [place] [address] Physician [place] [employer] Dermatology 04/10/24 Herminia Hatch MD [facility] [place], [place] [phone] Assigned Rheumatology Provider 07/02/24 Jelena David OD [address] [facility] [place] [address] Ophthalmology 08/30/24 [place] [address] [place] [address] Assigned Neuroscience Provider 09/30/24 Maru Man PA-C [address] [place] [address] Physician [place] [employer] Dermatology 10/03/24 Maru Man PA-C [address] [place] [address] Physician [place] [employer] Dermatology 10/22/24 [place] [address] [place] [address] ENMA KING [address] Assigned Surgical Provider 10/31/24 documented as of this encounter
--- OUTSIDE RECORDS SUMMARY | 2024-12-04 15:05 | XMS_ITS | Encounter Summary ---
Author Organization [facility] Address [address] [place] [address] Care Team Providers Care Director Supplier Quality Name Role Phone Diana Desir [facility] Unavailable Rain GalavizC Unavailable Tavia Wyatt MD Unavailable [phone] Erica Farrell APRN HUMAN RESOURCES LEADER Unavailable Rich Barrett MD Unavailable [phone] Neil Kent MD Unavailable ThangKendrickDiana Stanislav [facility] Unavailable [phone] Livan Sharif MD Unavailable Catherine Cm MD Unavailable + Valery Veronica-C Unavailable Brea Quinn APRN HUMAN RESOURCES LEADER Unavailable Esha Grimm PA-C Primary Care Provider Jelena David OD Unavailable Esha Grimm PA-C Unavailable [phone] Valery Veronica PA-C Unavailable Rey Tay MD Unavailable DuaneRocky Unavailable Philip Dumont MD Unavailable [phone] Meredith Carrera PA-C Unavailable [phone] Neil Kent MD Unavailable Juan Pablo Emmanuel MD Unavailable [phone] Audrey Waite PA-C Unavailable [phone] Valery Veronica PA-C Unavailable [phone] Herminia Hatch MD Unavailable Jelena David OD Unavailable [phone] Juan Pablo Emmanuel MD Unavailable Maru Man PA-C Unavailable [phone] Maru Man PA-C Unavailable Jelena David OD Unavailable Fabiano Correa CENSUS CLERK Unavailable Reason for Referral * Diagnostic Imaging XR (Routine) - Pending Review Specialty Diagnoses / Procedures Referred By Contparviz t Referred To Contact Radiology. Diagnoses Acute cough Procedures XR Chest 2 Views Amalia Zayas MD [address] [facility] [place] [place] [address] Phone: tel: fax: Referral ID Status Reason Start Date Expiration Date V isits Requested Visits Authorized [id number] Pending Review 12/04/2024 12/04/2025 1 1 Reason for Visit * Reason Comments Cough Flu follow up from 2 weeks ago,now has a cough, diarrhea, chest tightness and left arm feels weird, Encounter Details Date Type Department Care Team (Late Contact Info) Description 12/04/2024 3:05 PM CDT Office Visit [facility] Urgent [facility] [address] [place] [address] Amalia Zayas MD [address] [facility] [place] [address] Pneumonia of right lower lobe due to infectious organism (Primary Dx); Acute cough; Chest pain, unspecified type Social History Tobacco Use Types Packs/Day [...] Answer Date Recorded PHQ-2 Score 1 10/24/2024 [facility] [place] of Occupat ional Health - Occupational Stress [...] exercise at this level? 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 Gender Identity Female 03/02/2021 5:45 PM CDT Sexual Orientation Straight 02/28/2020 12 :51 AM CDT documented as of this encounter Last Filed Vital Signs Vital Sign Reading Time Taken Comments Blood Pressure 113/75 12/04/2024 3:15 PM CDT Pulse 81 12/04/2024 3:15 PM CDT Temperature 36.8 C (98.3 F) 12/04/2024 3:15 PM CDT Respiratory Rate 21 12/04/2024 3:15 PM CDT Oxygen Saturation 100% 12/04/2024 3:15 PM CDT Inhaled Oxygen Concentration - - Weight 93 kg (205 lb) 12/04/2024 3:15 PM CDT Height 167.6 cm (5' 6) 12/04/2024 3:15 PM CDT Body Mass Index 33.09 12/04/2024 3:15 PM CDT documented in this encounter Progress Notes * Shiva Ellsworth MA - 12/04/2024 3:05 PM CDT Urgent Care Clinic Visit Chief Complaint Patient presents with Cough Flu follow up from 2 weeks ago,now has a cough, chest tightness, diarrhea, 12/04/2024 3:20 PM Additional Questions Roomed by shiva * Amalia Zayas MD - 12/04/2024 3:05 PM CDT ICD-10-CM 1. Acute cough R05.1 XR Chest 2 Views 2. Chest pain, unspecified type R07.9 EKG 12-lead complete w/read - Clinics Cough and a single day of fever after having influenza B about 2 weeks ago. I am suspicious for secondary pneumonia following influenza given the timing of fever returning but I do not see any infiltrates on today's CXR; radiologist review is pending. Normal exam today and reassuring vitals at thistime. Normal EKG today. L upper chest pain highly unlikely to be cardiac in nature. PLAN: Offered Tessalon Rx for symptomatic relief, but pt declines at this time. Continue to monitor symptoms and return for recheck if fever develops again or if otherwise worsening. ADDENDUM: Results for orders placed or performed in visit on 12/04/24 XR Chest 2 Views Status: None Narrative EXAM: XR CHEST 2 VIEWS LOCATION: [facility] DATE: 12/04/2024 INDICATION: Acute cough COMPARISON: None. Impression IMPRESSION: Patchy opacity within the right lung base which may represent pneumonia in the correct clinical setting. Otherwise the lungs are clear. There is no pleural effusion or pneumothorax. The heart size is normal. Will start doxycycline to treat what is very likely to be a pneumonia. ADDENDEUM 2: Pt reports that she'll be in the sun a lot during the course of treatment and would prefer not doxycycline due to side effect of sun sensitivity. Will change to amox + azithro. SUBJECTIVE: Kim Johnson is a 24 year old female who presents to with ongoing cough and a fever 2 days agothat has since resolved. Tmax on Tuesday was 100.3. Had influenza B about 2 weeks ago and felt quitesick, worse than with COVID. Feels like she recovered from that and then got sick again. No rashes. Had a little diarrhea today. No sore throat. History of SVT s/p ablation. Currently having some soreness/tightness in upper L chest that radiates to inner aspect of L arm. No palpitations. Not having significant shortness of breath. OBJECTIVE: BP 113/75 Pulse 81 Temp 98.3 ??F (36.8 ??C) (Tympanic) Resp 21 Ht 1.676 m (5' 6) Wt 93 kg (205 lb) LMP (LMP Unknown) SpO2 100% BMI 33.09 kg/m?? GEN: well-appearing, in NAD ENT: TMs normal, oral MMM, normal pharynx Neck: no LAD Lungs: CTAB, good air entry throughout, no wheezes or crackles noted CV: RRR, no murmurs noted EKG shows normal sinus rhythm without ectopy, normal axis, no ST/T changes to suggest ischemia or strain. documented in this encounter Miscellaneous Notes * Addendum Note - Amalia Zayas MD - 12/04/2024 3:05 PM CDTAddended by: AMALIA ZAYAS on: 12/05/2024 11:10 AM Modules accepted: Orders documented in this encounter Plan of Treatment Upcoming Encounters Date Type Department Care Team (Late st Contact Info) Description 12/19/2024 2:00 PM CDT Office Visit [address] [address] Lauren Claudio PA-C [address] [place] [address] 12/26/2024 7:30 AM CDT Office Visit [facility] [address] [phone] Neil Kent MD [address] [place] [address] [phone] 04/16/2025 11:00 AM CDT Virtual Visit [facility] Gastroenterology [address] 4th [place] [phone] Meredith Carrera PA-C [address] [place] [address] [phone] documented as of this encounter Procedures Procedure Name Priority Date/Time Associated Diagnosis Comments EKG 12-LEAD COMPLETE W/READ - CLINICS Routine 12/04/2024 Chest pain, unspecified type documented in this encounter Results * XR Chest 2 Views (12/04/2024 4:03 PM CDT) Anatomical Region Laterality Modality Chest Computed Radiogr aphy 12/04/2024 4:03 PM CDT Impressions 12/05/2024 1:32 AM CDT IMPRESSION: Patchy opacity within the right lung base which may represent pneumonia in the correct clinical setting. Otherwise the lungs are clear. There is no pleural effusion or pneumothorax. The heart size is normal. Narrative 12/05/2024 1:32 AM CDT EXAM: XR CHEST 2 VIEWS LOCATION: [facility] DATE: 12/04/2024 INDICATION: Acute cough COMPARISON: None. Procedure Note Gareth Murray MD - 12/05/2024 EXAM: XR CHEST 2 VIEWS LOCATION: [facility] DATE: 12/04/2024 INDICATION: Acute cough COMPARISON: None. IMPRESSION: Patchy opacity within the right lung base which may representpneumonia in the correct clinical setting. Otherwise the lungs are clear.There is no pleural effusion or pneumothorax. The heart size is normal. Amalia Zayas MD IMG DIAGNOSTIC IMAGING ORDERA BLES Final Result * EKG 12-lead complete w/read - Clinics (12/04/2024) Amalia Zayas MD ECG ORDERABLES Final Result documented in this encounter Visit Diagnoses Diagnosis Pneumonia of right lower lobe due to infectious organism- Primary Acute cough Chest pain, unspecified type Acute cough documented in this encounter Additional Health Concerns Assessment Noted Time PHQ-9 Depression Total Score: 5 10/25/19 25 10:38 AM CDT documented as of this encounter Care Teams Director Supplier Quality Relationship Specialty Start Date End Date Esha Grimm PA-C [address] [place] [phone] PCP - General Family Medicine 05/04/23 Diana Desir [facility] [address] [place] [address] Pharmacist Pharmacist 04/17/21 Rain Galaviz PA-C [address] [place] [address] [address] [place] [address] Physician Brand Sales Manager Dermatology 04/28/21 Tavia Wyatt MD [address] [place] [address] [address] Lara [place] [address] Dermatology 07/14/21 Erica Farrell APRN HUMAN RESOURCES LEADER [address] [place] [address] Nurse Practitioner Cardiovascular Disease 09/09/21 Rich Barrett MD [address] [place] [address] Physician Ophthalmology 01/21/22 Neil Kent MD [address] [place], [place] [phone] Dermatology 02/24/22 Diana Desir, [facility] [address] [place] [address] Assigned MTM Pharmacist 04/07/22 Livan Sharif MD [address] [place] [address] Cardiovascular Disease 05/14/22 Catherine Cm MD [address] [place] [address] Cardiovascular Disease 07/21/22 Valery Veronica PA-C [address] [place] [address] 163715 Physician Brand Sales Manager Dermatology 07/21/22 Brea Quinn APRN CNP [address] [place] [address] [phone] Nurse Practitioner Dermatology 09/21/22 Jelena David OD [address] [place] [address] [place] [address] Ophthalmology 06/15/23 Esha Grimm PA-C [address] [place] [phone] Assigned PCP 07/16/23 Valery Veronica PA-C [address] [place] [address] [phone] Physician Brand Sales Manager Dermatology 09/19/23 Rey Tay MD [address] [place] [address] 662305 Gastroenterology 09/20/23 Rocky Zepeda DO [address] [place] [address] Physician Gastroenterology 09/20/23 Philip Dumont MD [address] [place] [address] Physician Ophthalmology 09/22/23 Meredith Carrera PA-C [address] [place] [address] Assigned Gastroenterology Provider 11/01/23 Neil Kent MD [address] [place] [address] Dermatology 11/02/23 [place] [address] [place] [address] Neurological Surgery 12/26/23 Audrey Waite PA-C [address] [place] [address] Physician Brand Sales Manager Dermatology 02/28/24 Valery Veronica PA-C [id number] [address] [place] [address] Physician Brand Sales Manager Dermatology 04/10/24 Herminia Hatch MD [address] [place] [address] [id number] Assigned Rheumatology Provider 07/02/24 Jelena David OD [address] [place] [address] [place] [address] Ophthalmology 08/30/24 [place] [address] [facility] [place] [facility] [place] [address] Assigned Neuroscience Provider 09/30/24 Maru Man PA-C [address] [place] [address] Physician Brand Sales Manager Dermatology 10/03/24 Maru Man PA-C [address] [place] [address] Physician Brand Sales Manager Dermatology 10/22/24 Jelena David OD [address] [facility] [place] [address] Assigned Surgical Provider 10/31/24 Fabiano Correa NP [address] [place] [address] Assigned Heart and Vascular Provider 11/30/24 documented as of this encounter
--- OUTSIDE RECORDS SUMMARY | 2024-12-04 15:55 | XMS_ITS | Encounter Summary ---
Author Organization [facility] Address [address] [place] [address] Care Team Providers Care Correctional Security Officer Name Role Phone Diana Desir [facility] Unavailable [phone] Rain GalavizC Unavailable Tavia Wyatt MD Unavailable [phone] Erica Farrell APRN DIRECTOR OF BUSINESS SERVICES Unavailable Rich Barrett MD Unavailable [phone] Neil Kent MD Unavailable ThangKendrickDiana Stanislav [facility] Unavailable Livan Sharif MD Unavailable Catherine Cm MD Unavailable + Valery Veronica-C Unavailable Brea Quinn APRN DIRECTOR OF BUSINESS SERVICES Unavailable Esha Grimm PA-C Primary Care Provider Jelena David OD Unavailable Esha Grimm PA-C Unavailable [phone] Valery Veronica PA-C Unavailable [phone] Rey Tay MD Unavailable DuaneRocky Unavailable Philip Dumont MD Unavailable Meredith Carrera PA-C Unavailable Neil Kent MD Unavailable Juan Pablo Emmanuel MD Unavailable Audrey Waite PA-C Unavailable Valery Veronica PA-C Unavailable Herminia Hatch MD Unavailable Jelena David OD Unavailable Juan Pablo Emmanuel MD Unavailable Maru Man PA-C Unavailable Maru Man PA-C Unavailable Jelena David OD Unavailable Fabiano Correa COAL INSPECTOR Unavailable [phone] Reason for Visit * Diagnostic Imaging XR (Routine) - Pending Review Specialty Diagnoses / Procedures Referred By Contparviz t Referred To Contact Radiology. Diagnoses Acute cough Procedures XR Chest 2 Views Amalia Zayas MD [address] [place], [place] [address] Phone: tel: fax: Referral ID Status Reason Start Date Expiration Date V isits Requested Visits Authorized [id number] Pending Review 12/04/2024 12/04/2025 1 1 Encounter Details Date Type Department Care Team (Late st Contact Info) Description 12/04/2024 3:55 PM CDT Ancillary Procedure [facility] [address] [place] [address] Amalia Zayas MD [address] [place] [address] Acute cough Social [...] PHQ-2 Score 1 10/24/2024 [facility] - [...] exercise at this level? 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 Gender Identity Female 03/02/2021 5:45 PM CDT Sexual Orientation Straight 02/28/2020 12 :51 AM CDT documented as of this encounter Plan of Treatment Upcoming Encounters Date Type Department Care Team (Late st Contact Info) Description 12/19/2024 2:00 PM CDT Office Visit [facility] [address] [place] [phone] Lauren Claudio PA-C [address] [place] [address] 12/26/2024 7:30 AM CDT Office Visit [facility] [address] [phone] Neil Kent MD [address] [place] [address] 4985[address] 04/16/2025 11:00 AM CDT Virtual Visit [facility] [place] [address] [place] [address] 4th [place] [phone] Meredith Carrera PA-C [address] [place] [address] documented as of this encounter Procedures Procedure [...] CDT EXAM: XR CHEST 2 VIEWS LOCATION: [facility] DATE: 12/04/2024 INDICATION: Acute cough COMPARISON: None. Procedure Note Gareth Murray MD - 12/05/2024 EXAM: XR CHEST 2 VIEWS LOCATION: [facility] DATE: 12/04/2024 INDICATION: Acute cough [...] as of this encounter Care Teams Correctional Security Officer Relationship Specialty Start Date End Date Esha Grimm PA-C [address] [place] [address] PCP - General Family Medicine 05/04/23 Diana Desir [facility] 3033 [place] [address] Pharmacist Pharmacist 04/17/21 Rain Galaviz PA-C [address] [place] [address] [address] [place] [address] Physician Tin Roofer Dermatology 04/28/21 Tavia Wyatt MD [address] [place] [address] [address] [place] [address] Dermatology 07/14/21 Erica Farrell APRN DIRECTOR OF BUSINESS SERVICES 6405 [facility] [address] [place] [address] Nurse Practitioner Cardiovascular Disease 09/09/21 Rich Barrett MD [address] [place], [place] [address] Physician Ophthalmology 01/21/22 Neil Kent MD 500 [place] [address] Dermatology 02/24/22 [facility] 3033 [place] [address] [facility] Pharmacist 04/07/22 Livan Sharif MD [address] [place] [address] Cardiovascular Disease 05/14/22 Catherine Cm MD [address] [place], [place] 409485 Cardiovascular Disease 07/21/22 Valery Veronica PA-C 909 [place] [address] Physician Tin Roofer Dermatology 07/21/22 Brea Quinn APRN DIRECTOR OF BUSINESS SERVICES 500 [place] [address] Nurse Practitioner Dermatology 09/21/22 Jelena David OD [address] [facility] [place] [address] Ophthalmology 06/15/23 Esha Grimm PA-C [address] [place] [address] Assigned PCP 07/16/23 Valery Veronica PA-C [address] [place] [address] Physician Tin Roofer Dermatology 09/19/23 Rey Tay MD [address] [place] [address] MD Gastroenterology 09/20/23 Rocky Zepeda DO [address] [place] [address] 126705 Physician Gastroenterology 09/20/23 Philip Dumont MD [address] [place] [address] 740935 Physician Ophthalmology 09/22/23 Meredith Carrera PA-C [address] [place] [address] 677645 Assigned Gastroenterology Provider 11/01/23 Neil Kent MD [address] [address] Dermatology 11/02/23 [place] [address] [facility] [place] [address] Neurological Surgery 12/26/23 Audrey Waite PA-C [address] [place] [address] Physician Tin Roofer Dermatology 02/28/24 Valery Veronica PA-C [address] [place] [address] Physician Tin Roofer Dermatology 04/10/24 Herminia Hatch MD [address] [place] [address] Assigned Rheumatology Provider 07/02/24 Jelena David OD [address] [place] [address] [place] [address] Ophthalmology 08/30/24 [place] [address] [place] [address] Assigned Neuroscience Provider 09/30/24 Maru Man PA-C [address] [place] [address] Physician Tin Roofer Dermatology 10/03/24 Maru Man PA-C [address] [place] [address] Physician Tin Roofer Dermatology 10/22/24 Jelena aDvid OD [address] [place] [address] [place] [address] Assigned Surgical Provider 10/31/24 Fabiano Correa NP [address] [place] [address] Assigned Heart and Vascular Provider 11/30/24 documented as of this encounter
--- OUTSIDE RECORDS SUMMARY | 2024-12-17 21:35 | XMS_ITS | Encounter Summary ---
Author Organization [facility] Address [address] [place] [address] Care Team Providers Care Podiatric Technician Name Role Phone Diana Desir [facility] Unavailable Rain Galaviz PA-C Unavailable Tavia Wyatt MD Unavailable [phone] Erica Farrell APRN HONEY GRADER AND BLENDER Unavailable Rich Barrett MD Unavailable [phone] Neil Kent MD Unavailable Diana Desir [facility] Unavailable Livan Sharif MD Unavailable Catherine Cm MD Unavailable + Valery Veronica PA-C Unavailable Brea Quinn QUENCHER OPERATOR HONEY GRADER AND BLENDER Unavailable Brea Quinn QUENCHER OPERATOR HONEY GRADER AND BLENDER Unavailable [phone] Jose Francisco Johnson MD Unavailable Alfonso Renteria MD Unavailable [phone] Esha Grimm PA-C Primary Care Provider [phone] Lomeli, Radha E QUENCHER OPERATOR HONEY GRADER AND BLENDER Unavailable Jelena David OD Unavailable [phone] Esha Grimm PA-C Unavailable [phone] Valery Veronica PA-C Unavailable Rey Tay [...] PA-C Unavailable Jelena David OD Unavailable [phone] Fabiano Correa NP Unavailable Encounter Details Date Type Department Care Team (Late st Contact Info) Description 04/24/2024 [facility] Medical Advice [facility] [address] [place] [address] [address] [place] [address] Radha Lomeli, QUENCHER OPERATOR HONEY GRADER AND BLENDER [address] [place] [id number] Social History Tobacco Use Types Packs/Day Years [...] week 03/28/2024 How often do you attend [facility] or yazdan[facility] services? 1 to 4 times [...] Answer Date Recorded PHQ-2 Score 1 02/07/2024 [facility] [...] exercise at this level? 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 documented in this encounter Plan of Treatment Upcoming Encounters Date Type Department Care Team (Late st Contact Info) Description 12/19/2024 2:00 PM CDT Office Visit [facility] [address] [place] [phone] Lauren Claudio PA-C [address] [place] [address] 12/26/2024 7:30 AM CDT Office Visit [address] [phone] Neil Kent MD [address] [place] [address] 793645 04/16/2025 11:00 AM CDT Virtual Visit [facility] [address] 4th [place] [phone] Meredith Carrera PA-C [address] [place] [address] documented as of this encounter Visit Diagnoses Not on filedocumented in this encounter Additional Health Concerns Infection Onset Date Last Indicated Resolved Time Rule Out COVID-19 10/04/2024 10/04/2024 10/05/2024 9:42 AM CDT Rule Out COVID-19 11/20/2024 11/20/2024 11/21/2024 11:23 AM CDT Rule Out COVID-19 11/21/2024 11/21/2024 11/22/2024 12:10 AM CDT Influenza 11/21/2024 11/21/2024 11/28/2024 7:42 PM CDT Assessment Noted Time PHQ-9 Depression Total Score: 3 02/07/20 9:33 AM CDT documented as of this encounter Care Teams Podiatric Technician Relationship Specialty Start Date End Date Esha Grimm PA-C [address] [place] [phone] PCP - General Family Medicine 05/04/23 Diana Desir, [facility] [address] [place] [address] Pharmacist Pharmacist 04/17/21 Rain Galaviz PA-C [address] [place] [address] [address] [place] [address] Physician Lard Tub Washer Dermatology 04/28/21 Tavia Wyatt MD [address] [place] [address] [address] [place] [address] Dermatology 07/14/21 Erica Farrell APRN HONEY GRADER AND BLENDER [address] [place], [place] [address] Nurse Practitioner Cardiovascular Disease 09/09/21 Rich Barrett MD [address] [place], [place] [address] Physician Ophthalmology 01/21/22 Neil Kent MD 500 [place], [place] 885505 Dermatology 02/24/22 Diana Desir, [facility] [address] [place] [address] Assigned MTM Pharmacist 04/07/22 Livan Sharif MD [address] [facility] [address] [place] [address] Cardiovascular Disease 05/14/22 Catherine Cm MD [address] [facility] [address] [place] [address] Cardiovascular Disease 07/21/22 Valery Veronica, PAUcheC 909 [place], [place] 4767[address] Physician Lard Tub Washer Dermatology 07/21/22 Brea Quinn APRN HONEY GRADER AND BLENDER 500 [place], [place] 0[address]885 Nurse Practitioner Dermatology 09/21/22 Brea Quinn APRN HONEY GRADER AND BLENDER [facility] [place] 423082 Assigned Surgical Provider 10/09/22 05/01/24 [place] [address] [facility] 300 [place] [address] Assigned Musculoskeletal Provider 10/09/22 05/01/24 Alfonso Renteria MD 5775 [facility] 200 [place], [place] 091706 Assigned Neuroscience Provider 04/02/23 09/29/24 Radha Lomeli APRN HONEY GRADER AND BLENDER [address] [place] [address] Assigned Heart and Vascular Provider 05/28/23 11/29/24 Tommy Davidmao Templetone, SONJA [address] [facility] [address] MD Ophthalmology 06/15/23 Esha Grimm PA-C [address] [place] [phone] Assigned PCP 07/16/23 Valery Veronica PA-C [address] [place] [address] Physician Lard Tub Washer Dermatology 09/19/23 Rey Tay MD [address] [place] [address] 741265 MD Gastroenterology 09/20/23 Rocky Zepeda DO [address] [place] [address] 546395 Physician Gastroenterology 09/20/23 Philip Dumont MD [address] [place] [address] 210425 Physician Ophthalmology 09/22/23 Meredith Carrera PA-C [address] [place] [address] 528885 Assigned Gastroenterology Provider 11/01/23 Neil Kent MD [address] [address] Dermatology 11/02/23 [place] [address] [place] [address] Neurological Surgery 12/26/23 Audrey Waite PA-C 500 [place] [address] Physician Lard Tub Washer Dermatology 02/28/24 Valery Veronica PA-C 592710 [place], [place] [address] Physician Lard Tub Washer Dermatology 04/10/24 Herminia Hatch MD [address] [place] [address] Assigned Rheumatology Provider 07/02/24 Jelena David OD [address] [place] [address] [place] [address] Ophthalmology 08/30/24 [place] [address] [place] [address] Assigned Neuroscience Provider 09/30/24 Maru Man PA-C [address] [place] [address] Physician Lard Tub Washer Dermatology 10/03/24 Maru Man PA-C [address] [place] [address] Physician Lard Tub Washer Dermatology 10/22/24 Jelena David OD [address] [place] [address] [place] [address] Assigned Surgical Provider 10/31/24 Fabiano Correa NP [address] [place] [address] [address] Assigned Heart and Vascular Provider 11/30/24 documented as of this encounter
--- OUTSIDE RECORDS SUMMARY | 2024-12-17 21:35 | XMS_ITS | Clinical Summary ---
Author Organization [place] Address [address] [place] [id number] Care Team Providers Care Mender [employer] Name Role Phone Diana Desir [facility] Unavailable [phone] Rain GalavizC Unavailable Tavia Wyatt MD Unavailable [phone] Erica Farrell APRN LIE DETECTOR OPERATOR Unavailable Rich Barrett MD Unavailable [phone] Neil Kent MD Unavailable ThangKendrickDiana Stanislav [facility] Unavailable Livan Sharif MD Unavailable Catherine Cm MD Unavailable + Valery Veronica-C Unavailable Brea Quinn APRN LIE DETECTOR OPERATOR Unavailable [phone] Esha Grimm PA-C Primary Care Provider [phone] Jelena David OD Unavailable Esha Grimm PA-C Unavailable [phone] Valery Veronica PA-C Unavailable Rey Tay MD Unavailable DuaneRocky Unavailable Philip Dumont MD Unavailable Meredith Carrera PA-C Unavailable Neil Kent MD Unavailable Juan Pablo Emmanuel MD Unavailable Audrey Waite PA-C Unavailable Valery Veronica PA-C Unavailable Herminia Hatch MD Unavailable Jelena David OD Unavailable Juan Pablo Emmanuel MD Unavailable Maru Man-C Unavailable Maru Man-C Unavailable Jelena David OD Unavailable Fabiano Correa NP Unavailable Allergies Active Allergy Reactions Criticality Noted [...] at bedtime 45 g 09/01/19 24 Active ketoconazole (NIZORAL) 2 % external shampooIndicati ons:Psoriasis Use every 1-2 days when flared. Leave in few minutes before rinsing. Use twice weekly to prevent flares. 120 mL 11 11/17/19 24 Active metoprolol succinate ER (TOPROL XL) 25 MG 24 hr tabletIndicatio ns:Palpitations Take 0.5 tablets (12.5 mg) by mouth daily. 45 tablet 3 05/18/20 24 Active tacrolimus (PROTOPIC) 0.1 % external ointmentIndicat ions:Psoriasis Apply thin layer to psoriasis on thinner skin of face/genitals up to twice daily as needed. 60 g 06/21/20 24 Active omeprazole (PRILOSEC) [address] capsuleIndicati ons:Epigastric pain Take 1 capsule (40 mg) by mouth daily. 90 capsule 2 09/18/19 25 Active PARoxetine (PAXIL) 40 MG tabletIndicatio ns:Anxiety Take 1 tablet (40 mg) by mouth every morning. NEED APPT FOR FURTHER REFILLS. 30 tablet 1 10/19/19 25 Active triamcinolone (KENALOG) 0.1 % external ointmentIndicat ions:Psoriasis Apply topically 2 times daily. To psoriasis on body or arms/legs until healed then stop 80 g 10/19/19 25 Active Multiple Vitamin (MULTIVITAMIN ADULT PO) 025 Discontinu ed(Med Rec(No AVS / No eCancel)) Digestive Enzymes (DIGESTIVE ENZYME PO) 025 Discontinu ed(Med Rec(No AVS / No eCancel)) Probiotic Product (PROBIOTIC BLEND PO) 025 Discontinu ed(Med Rec(No AVS / No eCancel)) LORazepam (ATIVAN) 0.5 MG tabletIndicatio ns:Anxiety Take 1 tablet (0.5 mg) by mouth daily as needed for anxiety 30 tablet 10/27/19 24 025 Discontinu ed(Med Rec(No AVS / No eCancel)) fluconazole (DIFLUCAN) 150 MG tabletIndicatio ns:Yeast infection of the vagina Take 1 tablet (150 mg) by mouth every 3 days for 2 doses. 2 tablet 11/21/19 25 025 Additional Information Patient taking differently:150 mg Oral EVERY 3 DAYS,Started 11/20/24, Reported on 11/22/2024 doxycycline hyclate (VIBRAMYCIN) 100 MG capsuleIndicati ons:Pneumonia of right lower lobe due to infectious organism Take 1 capsule (100 mg) by mouth 2 times daily for 7 days. 14 capsule 12/06/19 25 025 amoxicillin (AMOXIL) 875 MG tabletIndicatio ns:Pneumonia of right lower lobe due to infectious organism Take 1 tablet (875 mg) by mouth 2 times daily for 7 days. 14 tablet 12/06/19 25 025 azithromycin (ZITHROMAX) 250 MG tabletIndicatio ns:Pneumonia of right lower lobe due to infectious organism Take 2 tablets (500 mg) by mouth daily for 1 day, THEN 1 tablet (250 mg) daily for 4 days. 6 tablet 12/06/19 25 025 Hospital, Clinic, or Other Facility Administered Medication [...] condition is present. Brief History of Condition: Nahun Clark has a history of seizures, SVT, [...] available in ED consider consultation with ED Assistant Professor Of Criminal Justice. Relevant Medical History (at time Care Plan [...] Edgar APRN CNP - Family Medicine - [facility] Specialists: Dr. Gaol Burrell - Cardiology - [facility] [place] - Neurology - [facility] Epilepsy Care Care Coordination: Has worked with Community Health Worker in past - ARACELIS Parker, Clinical Care Coordination - [facility] ([place], [place] and [place]) - Follow up plan after an ED visit: Marija Edgar APRN CNP - [facility] Medicine - 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 KALYN (generalized anxiety disorder) 09/29/2020 Right ureteral stone 05/27/2020 Overview (05/27/2020): Added automatically from request for surgery [id number] Left ureteral stone 05/27/2020 Overview (05/27/2020): Added automatically from request for surgery [id number] Head ache 02/18/2020 Seizure 05/02/2019 Depressed 05/02/2019 Anxiety 05/02/2019 Tobacco abuse counseling 05/02/2019 Psoriasis 05/02/2019 Resolved Problems Problem Noted Date Diagnosed Date Resolved Date Neck pain 08/25/2022 06/29/2024 Lower back pain 08/25/2022 08/17/2023 Term 01/13/2021 10/11/2022 Encounter for triage in patient 12/09/2020 04/18/2023 Asthma 06/04/2020 02/07/2024 Encounters Date Type Department Care Team Description 12/17/2024 Travel 12/12/2024 Results Follow-Up [address] [phone] Nigel Doe PA-C Subj: Message about your results 12/05/2024 Results Follow-Up [facility] [id number] [place] [phone] Amalia Zayas MD Dx: Pneumonia of right lower lobe due to infectious organism (Primary Dx) 12/04/2024 3:55 PM CDT Ancillary Procedure [address] [phone] Amalia Zayas MD Acute cough 12/04/2024 3:05 PM CDT Office Visit [facility] [id number] [place] [phone] Amalia Zayas MD Pneumonia of right lower lobe due to infectious organism (Primary Dx); Acute cough; Chest pain, unspecified type 12/04/2024 Travel 11/29/2024 Results Follow-Up [facility] [address] [place] [phone] Affeldt, Meredith A, PA-C Subj: Message about your results 11/23/2024 Results Follow-Up [facility] - General Medicine & Pediatrics [address] [place] [phone] Luis Angel Leone MD Subj: Message about your results 11/22/2024 4:00 AM CDT - 11/22/2024 10:31 AM CDT Hospital Encounter [facility] Emergency Dept [address] [place] [phone] Elizabeth Griffin MD Vaughn, Christopher E, MD Ward, Jason Scott, MD Weaver, Dot Troncoso MD Shortness of breath; Tachycardia; Near syncope; Influenza B Discharge Disposition: Home or Self Care 11/22/2024 Travel 11/21/2024 11:04 PM CDT - 11/22/2024 2:01 AM CDT Emergency [facility] Emergency Dept [address] [place] [phone] Sha Ness MD Influenza B; Sinus tachycardia Discharge Disposition: Home or Self Care 11/21/2024 Travel 11/21/2024 Results Follow-Up [address] [phone] Audrey Díaz PA-C Subj: Message about your results 11/21/[address] [facility] Nurse Advisors [facility] [place] [address] Celine Vogel RN General 11/20/2024 11:20 AM CDT Ancillary Procedure [address] [phone] Estephania Flannery NP Acute cough 11/20/2024 11:15 AM CDT Office Visit [address] [phone] Estephania Flannery NP Yeast infection of the vagina (Primary Dx); Fever, unspecified; Acute cough; Screening examination for STI; Dysuria; Viral URI with cough; Irregular bowel habits 11/20/2024 Travel 11/09/[address] [facility] [address] [place] [phone] Apolinar Gresham 11/07/[address] [facility] [address] [place] [phone] Meredith Carrera PA-C Appointment 11/02/2024 7:45 AM CDT Virtual Visit [facility] [address] [place] [phone] Meredith Carrera PA-C Bloating symptom (Primary Dx); Irregular bowel habits; Eosinophilic esophagitis 10/28/2024 3:58 PM CDT - 10/28/2024 6:57 PM CDT Emergency [facility] Emergency Dept [address] [place] [address] Jeffrey Fofana MD Acute chest pain Discharge Disposition: Home or Self Care 10/28/2024 Travel 10/24/2024 4:00 PM CDT Office Visit [address] [place] [phone] Jelena David, SONJA Hyperopia of both eyes with astigmatism (Primary Dx); Headache, unspecified headache type 10/24/2024 11:00 AM CDT Office Visit [address] [phone] Nigel Doe PA-C Sore throat (Primary Dx); Abdominal bloating; SVT (supraventricular tachycardia) 10/24/2024 Orders Only (auto-released) [address] [phone] Nigel Doe PA-C SVT (supraventricular tachycardia) 10/24/2024 Travel 10/23/[address] [facility] [place] [address] [facility], [address] [place] [phone] Johnny Penn MD Previsit 10/21/2024 Travel 10/18/[address] [facility] [address] [facility] [address] [place] [phone] Meredith Carrera PA-C Appointment (10/31/2024) 10/18/[address] [phone] Brea Quinn APRN LIE DETECTOR OPERATOR Refill Request (Triamcinolone Acetonide 0.1% ointment) 10/17/[address] [phone] Esha Grimm PA-C Medication Refill 10/11/2024 MyC Medical Advice [address] [phone] Diana Desir, [facility] 10/10/[address] [facility] [id number] [place] [address] [address] [place] [phone] Carley Myles RN 10/09/[address] [facility] [address] [facility] [address] [place] [phone] Livan Sharif MD Call Back (Heart Monitor) 10/04/2024 10:00 AM CDT Office Visit [facility] [address] [place] [address] Audrey Díaz PA-C Throat pain (Primary Dx) 10/04/2024 Travel 10/02/2024 MyC Medical Advice [address] [phone] Esha Grimm PA-C 10/01/2024 MyC Medical Advice [facility] [address] [facility] [address] [place] [phone] Marija Bailey RN 10/01/2024 Telephone [facility] [address] [facility] [address] [place] [phone] Fabiano Correa NP Orders (Zio Patch) 09/28/2024 Telephone [facility] [address] [facility] [address] [place] [phone] Livan Sharif MD Allergies (Allergic reaction to zio patch ) 09/20/2024 1:45 PM CDT Lab [facility] [address] [place] [phone] Vaginal discharge 09/20/2024 Travel 09/19/2024 9:40 PM CDT E-Visit [facility] [address] [place] [phone] Esha Grimm PA-C Vaginal Discharge (Entered automatically b... 09/17/2024 Refill [facility] [address] [place] [phone] Nigel Doe PA-C Medication Refill from Last 3 Months Immunizations Immunization Administration [...] Answer Date Recorded PHQ-2 Score 1 10/24/2024 [facility] [place] [employer] Occupat ional Health - Occupational Stress [...] at this level? 20 min 05/07/2024 [place] Depression Scale Answer Date Recorded [place] Depression Score 5 01/14/2021 Last EPDS Self [...] CDT Legal Sex Female 4:13 AM TEST LEAD Gender Identity Female 03/02/2021 5:45 PM [...] Mass Index 33.09 12/04/2024 3:15 PM CDT Plan of Treatment Upcoming Encounters Date Type Department Care Team (Late st Contact Info) Description 12/19/2024 2:00 PM CDT Office Visit [address] [phone] Lauren Claudio PA-C [address] [place] [address] 12/26/2024 7:30 AM CDT Office Visit [facility] [address] [phone] Neil Kent MD [address] [place] [phone] 04/16/2025 11:00 AM CDT Virtual Visit [facility] [address] [place] [phone] Meredith Carrera PA-C [address] [place] [phone] Health Maintenance Due Date Last Done Comments PNEUMOCOCCAL VACCINE: PEDIATRICS (0 to 5 YEARS) AND AT-RISK PATIENTS (6 to 49 YEARS) (2 of 2 - PCV) 09/22/2022 09/22/2021, 2000, 2000, Additional history exists ANNUAL REVIEW OF HM ORDERS 03/10/202403/10, 09/22/2021, 06/24/2020 COVID-19 VACCINE ( season) 2024 INFLUENZA VACCINE (Season Ended) 2025 04/02/2021, 03/27/2020, 05/02/2019, Additional history exists PHQ-9 04/25/2025 10/24/2024, 07/3 , 06/20/2023, Additional history exists YEARLY PREVENTIVE VISIT 05/08/2025 05/08/20, 03/10/2023, 09/22/2021, Additional history exists CHLAMYDIA SCREENING 11/20/2025 11/20/2024, 09/20/2024, 08/28/2024, Additional history exists PAP 05/01/2027 05/01/2024, 09/22/2021 ADVANCE CARE PLANNING 05/08/2029 05/08/2024 DTAP/TDAP/TD VACCINE (8 - Td or Tdap) 11/11/2030 11/11/2020, 08/10/2011, 11/23/2004, Additional history exists ZOSTER VACCINE (1 of 2) 2050 HEPATITIS B VACCINE Completed 08/07/2001, 08/07/2001, 03/28/2001, Additional history exists HPV VACCINE Completed 03/01/2012, 10/09, 08/10/2011 MENINGITIS VACCINE Completed 05/16/2017, 08/10/2011 DEPRESSION ACTION PLAN Completed 04/17/2021, 2020 HEPATITIS C SCREENING Completed 08/28/2024 , 08/03/2024, 05/31/2024, Additional history exists HIV SCREENING Completed 11/20/2024, 08/11, 08/03/2024, Additional history exists MENINGITIS B VACCINE Aged Out No long er eligible based on patient's age to complete this topic Procedures Procedure Name Priority Date/Time Associated Diagnosis Comments ZIO PATCH MAIL OUT Routine 12/11/2024 5: 33 PM CDT SVT (supraventricular tachycardia) XR CHEST 2 VIEWS Routine 12/04/2024 4:03 PM CDT Acute cough EKG 12-LEAD COMPLETE W/READ - CLINICS Routine 12/04/2024 Chest pain, unspecified type ECHO COMPLETE Routine 11/22/2024 10:48 AM CDT CBC WITH PLATELETS & DIFFERENTIAL STAT 11/22/2024 5:00 AM CDT CBC WITH PLATELETS AND DIFFERENTIAL STAT 11/22/2024 5:00 AM CDT CRP INFLAMMATION STAT 11/22/2024 5:00 AM CDT ERYTHROCYTE SEDIMENTATION RATE AUTO STAT 11/22/2024 5:00 AM CDT BASIC METABOLIC PANEL STAT 11/22/2024 5:00 AM CDT TROPONIN T, HIGH SENSITIVITY STAT 11/22/2024 5:00 AM CDT EKG 12-LEAD, TRACING ONLY STAT 11/22/2024 4:45 AM CDT XR CHEST 2 VIEWS STAT 11/22/2024 12:4 3 AM CDT CBC WITH PLATELETS & DIFFERENTIAL STAT 11/22/2024 12:06 AM CDT EXTRA RED TOP TUBE STAT 11/22/2024 12 :06 AM CDT EXTRA BLUE TOP TUBE STAT 11/22/2024 1 2:06 AM CDT CBC WITH PLATELETS AND DIFFERENTIAL STAT 11/22/2024 12:06 AM CDT EXTRA TUBE STAT 11/22/2024 12:06 AM CDT TROPONIN T, HIGH SENSITIVITY STAT 11/22/2024 12:06 AM CDT BASIC METABOLIC PANEL STAT 11/22/2024 12:06 AM CDT INFLUENZA A/B, RSV AND SARS-COV2 PCR STAT 11/21/2024 11:17 PM CDT EKG 12-LEAD, TRACING ONLY STAT 11/21/2024 10:53 PM CDT CRP INFLAMMATION Routine 11/20/2024 3:16 PM CDT Viral URI with cough Irregular bowel habits TSH WITH FREE T4 REFLEX Routine 11/21/19 3:16 PM CDT Viral URI with cough Irregular bowel habits HIV ANTIGEN ANTIBODY COMBO Routine 11/20/2024 3:15 PM CDT Screening examination for STI CHLAMYDIA TRACHOMATIS PCR Routine 11/20/2024 11:45 AM CDT Screening examination for STI NEISSERIA GONORRHOEAE PCR Routine 11/20/2024 11:45 AM CDT Screening examination for STI WET PREPARATION [...] 11:40 AM CDT Screening examination for STI IGA Routine 11/20/2024 11:40 AM CDT Viral URI with cough Irregular bowel habits TISSUE TRANSGLUTAMINASE DENNIS IGA AND IGG Routine 11/20/2024 11:40 AM CDT Viral URI with cough Irregular bowel habits XR CHEST 2 VIEWS STAT 11/20/2024 11:2 0 AM CDT Acute cough INFLUENZA A/B ANTIGEN Routine 11/20/2024 10:45 AM CDT Fever, unspecified COVID-19 VIRUS (CORONAVIRUS) BY PCR Routine 11/20/2024 [...] TRACING ONLY STAT 10/28/2024 3:14 PM CDT [place] REFRACTION Routine 10/24/2024 4:23 PM CDT Hyperopia [...] Routine 09/20/2024 1:38 PM CDT Vaginal discharge HEPATITIS C ANTIBODY Routine 08/03/2024 3:04 PM TEST LEAD Screen for STD (sexually transmitted disease) GYNECOLOGIC CYTOLOGY Routine 09/22/2021 3:14 PM CDT Encounter for screening for cervical cancer from Last 3 Months or Most Recently Relevant to Health Maintenance Results * ZIO PATCH MAIL OUT (12/11/2024 5:33 PM CDT) Only the most recent of2 resultswithin the time period is included. Zio Prelim Results Patient had a min HR of 49 bpm, max HR of 157 bpm, and avg HR of 75 bpm. Predominant underlying rhythm was Sinus Rhythm. Isolated SVEs were rare (<1.0%), and no SVE Couplets or SVE Triplets were present. Isolated VEs were rare (<1.0%), VE Couplets were rare (<1.0%), and no VE Triplets were present. CARDIOLOGY RESULTS Anatomical Region Laterality Modality Other 12/11/2024 5:33 PM CDT Narrative 12/12/2024 6:38 AM CDT Patient had a min HR of 49 bpm, max HR of 157 bpm, and avg HR of 75 bpm. Predominant underlying rhythm was Sinus Rhythm. Isolated SVEs were rare (<1.0%), and no SVE Couplets or SVE Triplets were present. Isolated VEs were rare (<1.0%), VE Couplets were rare (<1.0%), and no VE Triplets were present. Agreed with findings Symptoms reported (15 episodes) were mostly related to sinus rhythm. Monitoring period: 4-day Nigel Doe PA-C CV CARDIAC SERVICES ORDERABL ES Final Result * XR Chest 2 Views (12/04/2024 4:03 PM CDT) Only the most recent of4 resultswithin the time period is included. Anatomical [...] CDT EXAM: XR CHEST 2 VIEWS LOCATION: [facility] DATE: 12/04/2024 INDICATION: Acute cough COMPARISON: None. Procedure Note Gareth Murray MD - 12/05/2024 EXAM: XR CHEST 2 VIEWS LOCATION: [facility] DATE: 12/04/2024 INDICATION: Acute cough COMPARISON: None. [...] Amalia Zayas MD ECG ORDERABLES Final Result * ECHO COMPLETE (11/22/2024 10:48 AM CDT) LVEF 60-65% CARDIOLOGY RESULTS Anatomical Region Laterality Modality Echocardiography 11/22/2024 9:53 AM CDT Narrative 11/22/2024 1:45 PM CDT [id number]^OTONIEL^LUIS ANGEL^ROSA M [facility] [address] [place] [address] Name: NAHUN CLARK : 2000 Study Date: 11/22/2024 09:53 AM Age: 24 yrs Gender: Female Patient Location: [facility] Reason For Study: Tachycardia Ordering Physician: LUIS [...] Measurements & Calculations MV E max femi: 86.6 cm/sec MV A max femi: 45.2 cm/sec MV E/A: 1.9 MV dec slope: 334.0 cm/sec2 MV dec time: 0.26 sec PA acc time: 0.18 sec TR max femi: 202.8 cm/sec TR max P.4 mmHg E/E' av.2 Lateral E/e': 4.5 Medial E/e': 5.8 RV S Femi: 14.8 cm/sec Report approved by: Samantha Singh MD on 11/22/2024 01:45 PM Procedure Note Samantha Singh MD - 11/22/2024 [id number]^LEONE^LUIS ANGEL^[facility] Echocardi[facility] Laboratory [address] [place] [address] Name: NAHUN CLARK : 2000 Study Date: 11/22/2024 09:53 AM Age: 24 yrs Gender: Female Patient Location: [facility] Reason For Study: Tachycardia Ordering Physician: LUIS [...] Measurements & Calculations MV E max femi: 86.6 cm/sec MV A max femi: 45.2 cm/sec MV E/A: 1.9 MV dec slope: 334.0 cm/sec2 MV dec time: 0.26 sec PA acc time: 0.18 sec TR max femi: 202.8 cm/sec TR max P.4 mmHg E/E' av.2 Lateral E/e': 4.5 Medial E/e': 5.8 RV S Femi: 14.8 cm/sec Report approved by: Samantha Singh MD on 11/22/2024 01:45 PM us Luis Angel Leone MD CV ECHO ORDERABLES Edited Re sult - Final * (ABNORMAL) CBC with platelets and differential (11/22/2024 5:00 AM CDT) Only the most recent of3 resultswithin the time period is included. WBC Count 4.0 4.0 - 11.0 10e3/uL 11/22/2024 5:06 AM [facility] RBC Count 4.30 3.80 - 5.20 10e6/uL 11/22/2024 5:06 AM [facility] Hemoglobin 10.9(L) 11.7 - 15.7 g/dL 11/22/2024 5:06 AM [facility] Hematocrit 34.4(L) 35.0 - 47.0 % 11/22/2024 5:06 AM [facility] MCV 80 78 - 100 fL 11/22/2024 5:06 AM [facility] MCH 25.3(L) 26.5 - 33.0 pg 11/22/2024 5:06 AM [facility] MCHC 31.7 31.5 - 36.5 g/dL 11/22/2024 5:06 AM [facility] RDW 14.0 10.0 - 15.0 % 11/22/2024 5:06 AM [facility] Platelet Count 149(L) 150 - 450 10e3/uL 11/22/2024 5:06 AM CDT LABORATORY % Neutrophils 68 % 11/22/2024 5:06 AM CDT LABORATORY % Lymphocytes 20 % 11/22/2024 5:06 AM [facility] % Monocytes 9 % 11/22/2024 5:06 AM [facility] % Eosinophils 2 % 11/22/2024 5:06 AM [facility] % Basophils 1 % 11/22/2024 5:06 [...] LAB - BLOOD ORDERABLES Final Result LABORATORY [facility] [address] 1[address] floor, [address] [place] [address], [facility] [phone] * Troponin T, High Sensitivity (11/22/2024 5:00 AM CDT) Only the most recent of4 resultswithin the time period is included. [facility] Troponin T, High Sensitivity <6 [...] LAB - BLOOD ORDERABLES Final Result LABORATORY [facility] [address] floor, [address] [place] [address], [facility] [phone] * Erythrocyte sedimentation rate auto (11/22/2024 5:00 AM CDT) Erythrocyte Sedimentation Rate 8 0 - 20 mm/hr 11/22/2024 9:20 AM CDT LABORATORY Blood BLOOD SPECIMEN / Unknown Venipuncture / Unknown 11/22/2024 5:00 AM CDT 11/22/2024 5:04 AM CDT Elizabeth Griffin MD LAB - BLOOD ORDERABLES Final Result LABORATORY [facility] [address] [facility] [place] [address], [facility] * (ABNORMAL) CRP inflammation (11/22/2024 5:00 AM CDT) Only the most recent of2 resultswithin the time period is included. CRP Inflammation 13.82(H) <5.00 mg/L 11/22/2024 5:25 AM CDT LABORATORY Blood BLOOD SPECIMEN / Unknown Venipuncture / Unknown 11/22/2024 5:00 AM CDT 11/22/2024 5:04 AM CDT Elizabeth Griffin MD LAB - BLOOD ORDERABLES Final Result LABORATORY [facility] [address], [address] [place] [address], [facility] [phone] * (ABNORMAL) Basic metabolic panel (11/22/2024 5:00 AM CDT) Only the most recent of3 resultswithin the time period is included. [facility] Signature Sodium 138 135 - 145 mmol/L 11/22/2024 [...] 0.51 - 0.95 mg/dL 11/22/2024 5:25 AM CDT LABORATORY GFR Estimate >90 >60 mL/min/1.7 3m2 11/22/2024 5:25 AM CDT LABORATORY Comment:eGFR calculated 2020 CKD-EPI equation. Calcium 8.5(L) 8.8 - 10.4 mg/dL 11/22/2024 5:25 AM CDT LABORATORY Glucose 106(H) 70 - 99 mg/dL 11/22/2024 5:25 AM CDT LABORATORY Blood BLOOD SPECIMEN / Unknown Venipuncture / Unknown 11/22/2024 5:00 AM CDT 11/22/2024 5:04 AM CDT Elizabeth Griffin MD LAB - BLOOD ORDERABLES Final Result LABORATORY [facility] [address] floor, [address] [place] [address], [place] [phone] * EKG 12-lead, tracing only (11/22/2024 4:45 AM CDT) Only the most recent of4 resultswithin the time period is included. Systolic Blood Pressure mmHg RADIOLOGY RESULTS Diastolic Blood Pressure mmHg RADIOLOGY RESULTS Ventricular Rate 91 BPM RAD IOLOGY RESULTS Atrial Rate 91 BPM RADIOLOG Y RESULTS [place] Interval 148 ms RADIOLOG Y RESULTS QRS Duration 84 ms RADIOLO GY RESULTS QT 358 ms RADIOLOGY RESULTS QTc 440 ms RADIOLOGY RESULTS P Hollins 31 degrees RADIOLOGY RESULTS R AXIS 33 degrees RADIOLOGY RESULTS T Hollins 20 degrees RADIOLOGY RESULTS Interpretation ECG Sinus rhythm Normal ECG When compared with ECG of 21-Nov-2024 22:53, (unconfirmed) No significant change was found Confirmed by GENERATED REPORT, COMPUTER ([id number]), editor in chief newspaper NIGEL CARD ([id number]) on 11/22/2024 7:57:36 AM RADIOLOGY RESULTS 11/22/2024 4:45 AM CDT 11/22/2024 7:57 AM CDT us Elizabeth Griffin MD ECG ORDERABLES Edited Resul t - Final RADIOLOGY RESULTS * Extra Red Top Tube (11/22/2024 12:06 AM CDT) Hold Specimen [facility] 11/22/2024 1:31 AM CDT LABORATORY Blood VENOUS LINE / Unknown Venipuncture / Unknown 11/22/2024 12:06 AM CDT 11/22/2024 12:27 AM CDT us Sha Ness MD LAB - BLOOD ORDERABLES Fi nal Result RH LABORATORY [facility] Acute Care Lab [address] Lab (1st floor, no room number) [place] [address] * Extra Blue Top Tube (11/22/2024 12:06 AM CDT) Hold Specimen [facility] 11/22/2024 1:31 AM CDT LABORATORY Blood VENOUS LINE / Unknown Venipuncture / Unknown 11/22/2024 12:06 AM CDT 11/22/2024 12:27 AM CDT Sha Ness MD LAB - BLOOD ORDERABLES Fi nal Result LABORATORY [facility] [address] [facility], no room number) [place] [phone] * (ABNORMAL) Influenza A/B, RSV and SARS-CoV2 PCR (COVID-19) Nasopharyngeal (11/21/2024 11:17 PM CDT) [facility] Influenza A PCR Negative Negative 11/22/2024 12:10 [...] the Xpert Xpress CoV2/Flu/RSV Assay on the [employer] GeneXpert Instrument. This test should be ordered [...] management. This test was validated by the [facility] [employer]. These laboratories are certified under the Clinical Laboratory Improvement Amendments of 1988 (CLIA-88) as qualified to perfom high complexity laboratory testing. Sha Ness MD LAB - MICRO GENERAL ORDER GARY Final Result RH LABORATORY [facility] Acute Care Lab [address] [facility] Lab (1st floor, no room number) [place] [address], [facility] * TSH with free T4 reflex (11/20/2024 3:16 PM CDT) Pathologist [facility] TSH 1.55 0.30 - 4.20 uIU/mL 11/21/2024 1:11 PM CDT PH LABORATORY Blood BLOOD SPECIMEN / Unknown Venipuncture / Unknown 11/20/2024 3:16 PM CDT 11/20/2024 3:16 PM CDT Meredith Carrera PA-C LAB - BLOOD ORDERABLES Shira l Result PH LABORATORY [facility] Acute Care Lab [address] [facility] Lab (Main level, no room number) [place] [address], [facility] * HIV Antigen Antibody Combo (11/20/2024 3:15 [...] CDT 11/20/2024 3:15 PM CDT Estephania Flannery BOX STAPLER LAB - BLOOD ORDERABLES Shira l Result UU LABORATORY [facility] [place] [facility] Lab [address] [facility], [address] [place] [address] * (ABNORMAL) UA Microscopic with Reflex to [...] CDT Urine Culture not indicated Estephania Flannery BOX STAPLER LAB - URINE ORDERABLES Shira l Result LV LABORATORY [facility] [place] [facility] [address] [facility] Lab (no room number, 1st floor of clinic) [place] [address] * UA with Microscopic reflex to Culture [...] 11/20/2024 11:47 AM CDT LV LABORATORY [facility] [place] Urine 1.015 1.003 - 1.035 11/20/2024 11:47 [...] - URINE ORDERABLES Shira snyder Result LABORATORY [facility] [address] [facility] Lab (no room number, 1st floor of clinic) [place] [address], [facility] * (ABNORMAL) Wet prep [...] AM CDT 11/20/2024 11:45 AM CDT Estephania Prudencio B[employer] STAP[employer] LAB - MICRO GENERAL ORDERAB LES Final Result LV LABORATORY [facility] Lab [address] [facility] Lab (no room number, 1st floor of clinic) [place] [address], [facility] * NEISSERIA GONORRHOEA PCR (11/20/2024 11:45 AM CDT) Neisseria gonorrhoeae Negative Negative 11/21/2024 1:52 PM CDT UU IDD LABORATORY Comment:Negative for N. gono rrhoeae rRNA by bottle filler mediated amplification. A negative result by bottle filler mediated amplification does not preclude the presence [...] ORDERAB LES Final Result UU IDD LABORATORY [facility] Inf. Diseases Diag. Lab [address] [facility], [address] [place] [address] * CHLAMYDIA TRACHOMATIS PCR (11/20/2024 11:45 AM CDT) Chlamydia trachomatis Negative Negative 11/21/2024 1:52 PM CDT UU IDD LABORATORY Comment:A negative result by bottle filler mediated amplification does not preclude the presence [...] ORDERAB LES Final Result UU IDD LABORATORY [facility] Inf. Diseases Diag. Lab [address] [facility], [address] [place] [address] * WBC and Differential (11/20/2024 11:41 AM CDT) Pathologist [facility] WBC Count 5.2 4.0 - 11.0 10e3/uL [...] 11/20/2024 11:41 AM CDT us Estephania Flannery NP LAB - BLOOD ORDERABLES Shira l Result LABORATORY [facility] - [facility] Lab [address] [facility] Lab (no room number, 1st floor of clinic) [place] [address] * Treponema Abs w Reflex to RPR and Titer (11/20/2024 11:40 AM CDT) Only the most recent of2 resultswithin the time period is included. Treponema Antibody Total Nonreactive Nonreactive 11/20/2024 9:56 PM CDT SPECIALTY LABS Blood BLOOD SPECIMEN / Unknown Venipuncture / Unknown 11/20/2024 11:40 AM CDT 11/20/2024 11:40 AM CDT Estephania Flannery BOX STAPLER LAB - BLOOD ORDERABLES Shira l Result Performing Organization Address [facility]/ZIP Co de Phone Number SPECIALTY CORE/PROT/ENDO Specialty Core/Prot/Endo [address] [facility], [phone] [place] [address] SPECIALTY LABS Specialty Lab [address] [facility], [address] [address] * Tissue transglutaminase dennis IgA and IgG [...] CDT 11/20/2024 11:40 AM CDT us Meredith Torrezt PA-C LAB - BLOOD ORDERABLES Shira l Result UM SPECIALTY CORE/PROT/ENDO UM Specialty Core/Prot/Endo [address] [facility], Room [address] * IgA (11/20/2024 11:40 AM CDT) Immunoglobulin A 146 84 - 499 mg/dL 11/21/2024 7:42 AM CDT UM SPECIALTY CORE/PROT/END O Blood BLOOD SPECIMEN / Unknown Venipuncture / Unknown 11/20/2024 11:40 AM CDT 11/20/2024 11:40 AM CDT Meredith Troncoso Affeldt PA-C LAB - BLOOD ORDERABLES Shira l Result Performing Organization Address City/[facility] Co de Phone Number UM SPECIALTY CORE/PROT/ENDO Specialty Core/Prot/Endo [address] [facility], [address] * COVID-19 Virus (Coronavirus) by PCR Nose (11/20/2024 10:45 AM CDT) Only the most recent of2 resultswithin the time period is included. [facility] SARS CoV2 PCR Negative Negative 11/21/2024 11:23 AM CDT UU IDD LABORATORY Comment:NEGATIVE: SARS-CoV-2 (COVID-19) RNA not detected, presumed negative. Swab NASAL STRUCTURE / Unknown Non-blood Collection / Unknown 11/20/2024 10:45 AM CDT 11/20/2024 10:47 AM CDT Narrative UU IDD LABORATORY - 11/21/2024 11:23 AM CDT Testing was performed using the Aptima SARS-CoV-2 Assay on the [employer] Instrument System. Additional information about this Emergency [...] COVID-19. This test was validated by the [facility] Infectious Diseases Diagnostic [facility]. This laboratory is certified under the Clinical Laboratory Improvement Amendments of 1988 (CLIA-88) as qualified to perform high complexity laboratory testing. Amaris Pascal PA-C LAB - MICRO GENERAL ORD ERABLES Final Result UU IDD LABORATORY [facility] Inf. Diseases Diag. Lab [address] [facility], [address] [place] [address] * Influenza A & B Antigen (11/20/2024 10:45 AM CDT) Only the most recent of2 resultswithin the time period is included. Influenza A antigen Negative Negative 11/20/2024 11:22 AM CDT LABORATORY Influenza B antigen Negative Negative 11/20/2024 11:22 AM CDT LABORATORY Swab NASAL STRUCTURE / Unknown Non-blood Collection / Unknown 11/20/2024 10:45 AM CDT 11/20/2024 10:47 AM CDT Narrative LABORATORY - 11/20/2024 11:22 AM CDT Test results must be correlated with clinical data. If necessary, results should be confirmed by a molecular assay or viral culture. Amaris Pascal PA-C LAB - MICRO GENERAL ORD ERABLES Final Result LABORATORY [facility] Lab [address] [facility] (no room number, 1st floor of clinic) [place] [address], [facility] * HCG QUALitative (blood) (10/28/2024 4:20 PM CDT) hCG Serum Qualitative Negative Negative [facility] 10/28/2024 5:14 PM CDT RH LABORATORY Comment:This test is for scr eening purposes. Results should be interpreted along with the clinical picture. Confirmation testing is available if warranted by ordering [id number], HCG Quantitative . Blood STRUCTURE OF RIGHT UPPER LIMB / Unknown Venipuncture / Unknown 10/28/2024 4:20 PM CDT 10/28/2024 4:31 PM CDT Jeffrey Fofana MD LAB - BLOOD ORDERABLES Fin al Result Performing Organization Address City/[facility]/ZIP Co de Phone Number LABORATORY [facility] Care Lab [address] Lab (1st floor, no room number) [place] [phone] * D dimer quantitative (10/28/2024 4:20 PM CDT) [facility] D-Dimer Quantitative <0.27 0.00 - 0.50 ug/mL FEU 10/28/2024 5:14 PM CDT LABORATORY Blood STRUCTURE OF RIGHT UPPER LIMB / Unknown Venipuncture / Unknown 10/28/2024 4:20 PM CDT 10/28/2024 4:31 PM CDT Narrative LABORATORY - 10/28/2024 5:14 PM CDT This D-dimer assay is intended for use in conjunction with a clinical pretest probability assessment model to exclude pulmonary embolism (PE) and deep venous thrombosis (DVT) in outpatients suspected of PE or DVT. The cut-off value is 0.50 ug/mL FEU. Jeffrey Fofana MD LAB - BLOOD ORDERABLES Fin al Result Performing Organization Address City/[facility]/ZIP Co de Phone Number LABORATORY [facility] Care Lab [address] Lab (1st floor, no room number) [place] [phone] * (ABNORMAL) UA Macroscopic with reflex to Microscopic and Culture - Lab Collect (10/24/2024 11:16 AMCDT) Only the most recent of2 resultswithin the time period is included. Pathologist [facility] Color Urine Yellow Colorless, Straw, Light Yellow, Yellow 10/24/2024 11:21 AM CDT CR LABORATORY Appearance Urine Slightly Cloudy(A) Clear 10/24/2024 11:21 AM CDT CR LABORATORY Glucose Urine Negative Negative mg/dL 10/24/2024 11:21 AM CDT CR LABORATORY Bilirubin Urine Negative Negative 11:21 AM CDT CR LABORATORY Ketones Urine Negative Negative mg/dL 10/24/2024 11:21 AM CDT CR LABORATORY [facility] [place] Urine 1.015 1.003 - 1.035 10/24/2024 11:21 [...] AM CDT 10/24/2024 11:16 AM CDT us Nigel Doe PA-C LAB - URINE ORDERABLES Final Result CR LABORATORY [facility] [place] Lab [address] [facility] Lab (no room number, 1st floor of clinic) [place] [address], [facility] * Streptococcus A Rapid Screen w/Reflex to PCR - Clinic Collect (10/04/2024 10:08 AM CDT) Group A Strep antigen Negative Negative 10/04/2024 10:24 AM CDT LV LABORATORY Swab STRUCTURE OF ANTERIOR PORTION OF NECK / Unknown Non-blood Collection / Unknown 10/04/2024 10:08 AM CDT 10/04/2024 10:15 AM CDT Audrey ALCALA-C LAB - MICRO GENERAL ORDERAB LES Final Result LV LABORATORY [facility] [place] [facility] [address] [facility] Lab (no room number, 1st floor of clinic) [place] [address], [facility] * Group A Streptococcus [...] Xpress Strep A test, performed on the [employer], is a rapid, qualitative in vitro [...] (PCR) to detect Streptococcus pyogenes DNA. Audrey ALCALA-C LAB - MICRO GENERAL ORDERAB LES Final Result UU IDD LABORATORY [facility] Inf. Diseases Diag. Lab [address] [facility], [address] [place] [address], [facility] * Chlamydia & Gonorrhea by PCR, [facility] - Clinic Collect (09/20/2024 1:42 PM CDT) Chlamydia Trachomatis Negative Negative 09/21/2024 11:40 AM CDT UU IDD LABORATORY Comment: Negative for C. trachomatis rRNA by bottle filler mediated amplification. A negative result by bottle filler mediated amplification does not preclude the presence of infection because results are dependent on proper and adequate collection, absence of inhibitors and sufficient rRNA to be detected. Neisseria gonorrhoeae Negative Negative 09/21/2024 11:40 AM CDT U IDD LABORATORY Comment:Negative for N. gono rrhoeae rRNA by bottle filler mediated amplification. A negative result by bottle filler mediated amplification does not preclude the presence of C. trachomatis infection because results are dependent on proper and adequate collection, absence of inhibitors and sufficient rRNA to be detected. CTNG Specimen Source Urine, Voided 09/21/2024 11:40 AM CDT U IDD LABORATORY Urine VOIDED URINE SPECIMEN / Unknown Non-blood Collection / Unknown 09/20/2024 1:42 PM CDT 09/20/2024 1:42 PM CDT Esha Grimm PA-C LAB - MICRO GENERAL ORDERABLES Final Result Performing Organization Address City/[facility]/ZIP Co de Phone Number IDD LABORATORY [facility] Inf. Diseases Diag. Lab [address] [facility], [address] [place] [address] * Hepatitis C antibody (08/03/2024 3:04 PM TEST LEAD) [facility] Hepatitis C Antibody Nonreactive Nonreactive 08/03/2024 8:55 PM TEST LEAD U LABORATORY Comment:A nonreactive screen ing test [...] Unknown Venipuncture / Unknown 08/03/2024 3:04 PM TEST LEAD 08/03/2024 3:05 PM TEST LEAD Jaron Hager PA-C LAB - BLOOD ORDERABLES Final Result LABORATORY [facility] [place] [facility] [address] [facility] [address], [address] [place] [address], [facility] * Pap screen reflex to HPV if ASCUS - recommend age 25 - 29 (09/22/2021 3:14 PM CDT) Interpretation Negative for Intraepithelial Lesion or Malignancy (NILM) 09/25/2021 10:27 AM CDT SPECIALTY LABS at 1027 CDT Comment Papanicolaou Test Limitations: Cervical cytology is [...] component of this testing was completed at [facility] 09/25/2021 10:27 AM CDT SPECIALTY LABS Brushing CERVIX UTERI STRUCTURE / Unknown 09/22/2021 3:14 PM CDT 09/22/2021 3:48 PM CDT Marija BAKER - KANCHAN AP Final Re sult SPECIALTY LABS Specialty Lab [address] [facility] [address] [facility], [address] [place] [address], [place] [phone] from Last 3 Months or Most Recently Relevant to Health Maintenance Insurance 3 [place] [address] [facility] [address] [address] [facility] 3 [place] [address] [facility] [employer] [address] [address] [employer] * Guarantor: Nahun Clark Account Type Relation to Patient Date of Phone Billing Address Medication Therapy Self [address] [place] [phone] [facility] * Guarantor: Nahun Clark Account Type Relation to Patient Date of Phone Billing Address Medication Therapy Self [address] [place] [phone] [facility] Advance Directives For more information, please contact: [phone] * Full Code (Latest Code Status on File) Date Activated Date Inactivated Comments 11/22/2024 7:03 AM 11/22/2024 12:36 PM All basic a nd advanced life-sustaining interventions are performed as appropriate Question Answer Comments Code status determined by: Other (please documen t) * Full Code Date Activated Date Inactivated Comments 01/14/2021 7:36 AM 01/15/2021 6:05 PM All basic and advanced life-sustaining interventions are performed as appropriate Question Answer Comments Code status determined by: Discussion with patie nt/ legal decision maker Care Teams [employer] Relationship Specialty Start Date End Date Esha Grimm PA-C [address] [place] [phone] PCP - General Family Medicine 05/04/23 Diana Desir, [facility] [address] [place], [place] [address] Pharmacist Pharmacist 04/17/21 Rain Galaviz PA-C [address] [place] [address] [address] [place] [address] Physician Lens Mold Setter Dermatology 04/28/21 Tavia Wyatt MD [address] [place] [address] [address] [place] [id number] Dermatology 07/14/21 Erica Farrell APRN LIE DETECTOR OPERATOR [address] [facility] [address] [place] [address] Nurse Practitioner Cardiovascular Disease 09/09/21 Rich Barrett MD [address] [place], [place] [address] Physician Ophthalmology 01/21/22 Neil Kent MD [address] [place], [place] [phone] Dermatology 02/24/22 Diana Desir, [facility] [address] [place], [place] [phone] Assigned [facility] Pharmacist 04/07/22 Livan Sharif MD [address] [place], [place] [address] Cardiovascular Disease 05/14/22 Catherine Cm MD [address] [place], [place] [address] Cardiovascular Disease 07/21/22 Valery Veronica, PA-C [address] [place], [place] [phone] Physician Lens Mold Setter Dermatology 07/21/22 Brea Quinn APRN LIE DETECTOR OPERATOR [address] [place], [place] [phone] Nurse Practitioner Dermatology 09/21/22 Jelena David OD [address] [facility] [place] [address] Ophthalmology 06/15/23 Esha Grimm PA-C [address] [place] [phone] Assigned PCP 07/16/23 Valery Veronica PA-C [address] [place] [phone] Physician Lens Mold Setter Dermatology 09/19/23 Rey Tay MD [address] [place] [address] MD Gastroenterology 09/20/23 Rocky Zepeda DO [address] [place] [address] [phone] Physician Gastroenterology 09/20/23 Philip Dumont MD [address] [place] [address] Physician Ophthalmology 09/22/23 Meredith Carrera PA-C [address] [place] [address] Assigned Gastroenterology Provider 11/01/23 Neil Kent MD [address] [address] Dermatology 11/02/23 [place] [address] [place] [address] Neurological Surgery 12/26/23 Audrey Waite PA-C [address] [place] [address] Physician Lens Mold Setter Dermatology 02/28/24 Valery Veronica PA-C [address] [place] [address] Physician Lens Mold Setter Dermatology 04/10/24 Herminia Hatch MD [address] [place] [address] [id number] Assigned Rheumatology Provider 07/02/24 Jelena David, SONJA [address] [place] [address] [place] [address] Ophthalmology 08/30/24 [place] [address] [place] [address] Assigned Neuroscience Provider 09/30/24 Maru Man PA-C [address] [place] [address] Physician Lens Mold Setter Dermatology 10/03/24 Maru Man PA-C [address] [place] [address] Physician Lens Mold Setter Dermatology 10/22/24 Jelena David, SONJA [facility] [facility] [place] [address] Assigned Surgical Provider 10/31/24 Fabiano Correa NP [address] [place] [place] [address] Assigned Heart and Vascular Provider 11/30/24
--- OUTSIDE RECORDS SUMMARY | 2024-12-17 21:36 | XMS_ITS | Encounter Summary ---
Author Organization [facility] Address [address] [place] [address] Care Team Providers Care Lecturer In Computer Science Name Role Phone Diaan Desir Stanislav [facility] Unavailable Rain Galaviz PA-C Unavailable [phone] Tavia Wyatt MD Unavailable Erica Farrell APRN ACCOUNT RECEIVABLE ASSOCIATE Unavailable Rich Barrett MD Unavailable [phone] Neil Kent MD Unavailable ThangKendrickDiana Stanislav [facility] Unavailable [phone] Livan Sharif MD Unavailable Catherine Cm MD Unavailable + Valery Veronica-C Unavailable Brea Quinn APRN ACCOUNT RECEIVABLE ASSOCIATE Unavailable Esha Grimm PA-C Primary Care Provider Radha Lomeli APRN ACCOUNT RECEIVABLE ASSOCIATE Unavailable Jelena David OD Unavailable Ehsa Grimm PA-C Unavailable [phone] Valery Veronica PA-C Unavailable [phone] Rey Tay MD Unavailable Duane Rockyanne STEVENS Unavailable Philip Dumont MD Unavailable [phone] LoreMeredith mayers PA-C Unavailable [phone] Neil Kent MD Unavailable Juan Pablo Emmanuel MD Unavailable [phone] Audrey Waite PA-C Unavailable [phone] Valery Veronica PA-C Unavailable [phone] Herminia Hatch MD Unavailable Jelena David OD Unavailable Juan Pablo Emmanuel MD Unavailable [phone] Maru Man-C Unavailable [phone] Maru Man-C Unavailable [phone] Jelena David OD Unavailable Encounter Details Date [...] you attend [facility] or [facility]? 1 to 4 [...] PHQ-2 Score 1 10/24/2024 [facility] of Occupat ional [...] exercise at this level? 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 Gender Identity Female 03/02/2021 5:45 PM CDT Sexual Orientation Straight 02/28/2020 12 :51 AM CDT documented as of this encounter Plan of Treatment Upcoming Encounters Date Type Department Care Team (Late st Contact Info) Description 12/19/2024 2:00 PM CDT Office Visit [facility] [address] [place] [phone] Lauren Claudio PA-C [address] [place] [address] 12/26/2024 7:30 AM CDT Office Visit [facility] [address] [address] Neil Kent MD [address] [place] [address] 04/16/2025 11:00 AM CDT Virtual Visit [facility] [address] 4th [place] [phone] Meredith Carrera PA-C [address] [place] [address] documented as of this encounter Visit Diagnoses Not on filedocumented in this encounter Additional Health Concerns Infection Onset Date Last Indicated Resolved Time Rule Out COVID-19 11/20/2024 11/20/2024 11/21/2024 11:23 AM CDT Assessment Noted Time PHQ-9 Depression Total Score: 5 10/25/19 10:38 AM CDT documented as of this encounter Care Teams Lecturer In Computer Science Relationship Specialty Start Date End Date Esha Grimm PA-C [address] [place] [address] PCP - General Family Medicine 05/04/23 Diana Desir, [facility] [address] [place] [address] Pharmacist Pharmacist 04/17/21 Rain Galaviz PA-C [address] [place] [address] [address] [place] [address] Physician Resident In Diagnostic Radiology Dermatology 04/28/21 Tavia Wyatt MD [address] [place] [address] [address] [place] [address] Dermatology 07/14/21 Erica Farrell APRN ACCOUNT RECEIVABLE ASSOCIATE [address] [facility] [address] [place] [address] Nurse Practitioner Cardiovascular Disease 09/09/21 Rich Barrett MD [address] [place] [address] Physician Ophthalmology 01/21/22 Neil Kent MD 500 [place] [address] Dermatology 02/24/22 [facility] 3033 [place] [address] Assigned MTM Pharmacist 04/07/22 Livan Sharif MD [address] [place] [address] Cardiovascular Disease 05/14/22 Catherine Cm MD [address] [facility] [place] 6340[address] Cardiovascular Disease 07/21/22 Valery Veronica, PAUcheC [address] [place] [address] Physician Resident In Diagnostic Radiology Dermatology 07/21/22 Brea Quinn APRN ACCOUNT RECEIVABLE ASSOCIATE 500 [place] [address] Nurse Practitioner Dermatology 09/21/22 Radha Lomeli APRN ACCOUNT RECEIVABLE ASSOCIATE [address] [place] 624925 Assigned Heart and Vascular Provider 05/28/23 11/29/24 Jelena David OD [address] [place] [address] MD Ophthalmology 06/15/23 Esha Grimm PA-C [address] [place] [address] Assigned PCP 07/16/23 Valery Veronica PA-C [address] [place] [address] 863445 Physician Resident In Diagnostic Radiology Dermatology 09/19/23 Rey Tay MD [address] [place] [address] 917675 MD Gastroenterology 09/20/23 Rocky Zepeda DO [address] [place] [address] 659865 Physician Gastroenterology 09/20/23 Philip Dumont MD [address] [place] [address] 341125 Physician Ophthalmology 09/22/23 Meredith Carrera PA-C [address] [place] [address] 355385 Assigned Gastroenterology Provider 11/01/23 Neil Kent MD [address] [place] [address] 851070 Dermatology 11/02/23 [place] [address] [place] [address] Neurological Surgery 12/26/23 Audrey Waite PA-C 500 [place] [address] Physician Resident In Diagnostic Radiology Dermatology 02/28/24 Valery Veronica PA-C [address] [place] [address] Physician Resident In Diagnostic Radiology Dermatology 04/10/24 Herminia Hatch MD [address] [place] [address] Assigned Rheumatology Provider 07/02/24 eJlena David OD [address] [place] [address] [place] [address] Ophthalmology 08/30/24 [place] [address] [place] [address] Assigned Neuroscience Provider 09/30/24 Maru Man PA-C [address] [place] [address] Physician Resident In Diagnostic Radiology Dermatology 10/03/24 Maru Man PA-C [address] [place] [address] Physician Resident In Diagnostic Radiology Dermatology 10/22/24 Jelena David OD [address] [place] [address] [place] [address] Assigned Surgical Provider 10/31/24 documented as of this encounter
--- OUTSIDE RECORDS SUMMARY | 2024-12-17 21:36 | XMS_ITS | Encounter Summary ---
Author Organization [facility] Address [address] [place] [address] Care Team Providers Care Pockets And Pieces Necktie Operator Name Role Phone Lita Oseguera Unavailable Unavailable Marija Edgar APRN SEARCH MARKETING ANALYST Primary Care Provider + Marija Edgar APRN SEARCH MARKETING ANALYST Unavailable [phone] Keisha Dotson MD Unavailable Diana Desir [facility] Unavailable Rain Galaivz PA-C Unavailable Tavia Wyatt MD Unavailable Erica Farrell APRN SEARCH MARKETING ANALYST Unavailable Tavia Wyatt MD Unavailable [phone] Rich Barrett MD Unavailable [phone] Neil Kent MD Unavailable Roney Story DPM Unavailable [phone] Diana Desir [facility] Unavailable Jelena David OD Unavailable Galo Burrell MD Unavailable Unavailable Livan Sharif MD Unavailable Livan Sharif MD Unavailable IsCatherine hobbs MD Unavailable + Valery Veronica PA-C Unavailable Catherine Cm MD Unavailable + Johnny Murillo MD Unavailable Brea Quinn CONSTRUCTION FIELD ENGINEER SEARCH MARKETING ANALYST Unavailable [phone] Brea Quinn CONSTRUCTION FIELD ENGINEER SEARCH MARKETING ANALYST Unavailable [phone] Jose Francisco Johnson MD Unavailable Livan Sharif MD Unavailable Catherine Cm MD Unavailable + Sydnie Martinez RN Unavailable Unavailable Alfonso Renteria MD Unavailable [phone] Esha Grimm PA-C Primary Care Provider Cheng Todd PA-C Unavailable Radha Lomeli CONSTRUCTION FIELD ENGINEER SEARCH MARKETING ANALYST Unavailable Jelena David OD Unavailable Pao Joseph RN Unavailable Unavailable Esha Grimm PA-C Unavailable [phone] Valery Veronica PA-C Unavailable Rey Tay MD Unavailable Rocky Zepeda DO Unavailable Philip Dumont MD Unavailable Meredith Carrera PA-C Unavailable Neil Kent MD Unavailable Juan Pablo Emmanuel MD Unavailable Audrey Waite PA-C Unavailable Valery Veronica PA-C Unavailable Herminia Hatch MD Unavailable Jelena David OD Unavailable [phone] Juan Pablo Emmanuel MD Unavailable [phone] Maru Man PA-C Unavailable [phone] Maru Man PA-C Unavailable [phone] Jelena David OD Unavailable [phone] Fabiano Correa NP Unavailable [phone] Encounter Details Date Type Department Care Team (Late st Contact Info) Description 05/01/2022 [facility] [address] [address] Diana Desir, [facility] [address] [place] [address] Social History Tobacco Use Types Packs/Day Years [...] How often do you attend anabaptism or samaritan serv ices? Never 09/22/2021 Do [...] in a jail (including now)? No 09/22/2021 [place] Depression Scale Answer Date Recorded [place] Depression Score 5 01/14/2021 Last EPDS Self Harm Result Not on file 01/14 Education Answer Date Recorded What is the highest level of school you have completed or the highest degree you have received? 12th grade 08/07/2020 Comments No Sex and Gender Information Value Date Recorded Sex Assigned at Female 03/02/2021 5:45 PM CDT Legal Sex Female 4:13 AM EDGER AUTOMATIC Gender Identity Female 03/02/2021 5:45 PM [...] Description 12/19/2024 2:00 PM CDT Office Visit [facility] [address] [place] [phone] Lauren Claudio PA-C [address] [place], [place] [phone] 12/26/2024 7:30 AM CDT Office Visit [facility] [address] [address] Neil Kent MD [address] [place] [address] 04/16/2025 11:00 AM CDT Virtual Visit [facility] [address] 4th [place] [phone] Meredith Carrera PA-C [address] [place] [address] documented as of this encounter Visit Diagnoses Not on filedocumented in this encounter Additional Health Concerns Infection Onset Date Last Indicated Resolved Time Rule Out COVID-19 05/17/2022 05/17/2022 05/17/2022 10:20 PM EDGER AUTOMATIC Rule Out COVID-19 06/09/2022 06/09/2022 06/09/2022 9:35 AM EDGER AUTOMATIC COVID-19 06/09/2022 06/09/2022 06/30/2022 11:4 1 PM EDGER AUTOMATIC Rule Out COVID-19 11/10/2022 11/10/2022 11/11/2022 [...] documented as of this encounter Care Teams Pockets And Pieces Necktie Operator Relationship Specialty Start Date End Date Marija Edgar APRN SEARCH MARKETING ANALYST PCP - General Nurse Practitioner 04/30/20 04/14/23 Esha Grimm PA-C [address] [place] [address] PCP - General Family Medicine 05/04/23 Lita Oseguera Personal Advocate & Liaison (PAL) 02/28/20 03/27/23 Marija Edgar APRN SEARCH MARKETING ANALYST Assigned PCP 06/08/20 04/29/23 Keisha Dotson MD 9[address] [place] [address] Assigned Neuroscience Provider 06/04/20 04/01/23 Diana Desir, [facility] 3033 [place], [place] 147286 Pharmacist Pharmacist 04/17/21 Rain Galaviz PA-C [address] [place] [address] [address] [place] [address] Physician Item Processor Dermatology 04/28/21 Tavia Wyatt MD [address] [place] [address] [address] [place] [address] Dermatology 07/14/21 Erica Farrell APRN SEARCH MARKETING ANALYST [address] [facility] [address] [place] [address] Nurse Practitioner Cardiovascular Disease 09/09/21 Tavia Wyatt MD [address] [place] [address] Assigned Surgical Provider 11/29/21 05/07/22 Rich Barrett MD [address] [place] [address] Physician Ophthalmology 01/21/22 Neil Kent MD 500 [place], [place] 234755 Dermatology 02/24/22 [place] DPM [address] [employer] [facility] [address] [place], [place] 785627 Assigned Musculoskeletal Provider 03/20/22 08/13/22 Diana Desir, [facility] [address] [place], [place] 049686 Assigned MTM Pharmacist 04/07/22 Jelena David OD 3305 [facility] [place] [address] Assigned Surgical Provider 05/08/22 10/08/22 Galo Burrell MD Assigned Heart and Vascular Provider 04/17/22 06/11/22 Livan Sharif MD [address] [place] [address] Cardiovascular Disease 05/14/22 Livan Sharif MD [address] [place] 369145 Assigned Heart and Vascular Provider 06/12/22 07/23/22 Catherine Cm MD [address] [address] Cardiovascular Disease 07/21/22 Valery Veronica, PA-C [address] [place] [address] Physician Item Processor Dermatology 07/21/22 Catherine Cm MD [address] [address] Assigned Heart and Vascular Provider 07/24/22 11/05/22 Johnny Murillo MD [address] [place] [address] Assigned Musculoskeletal Provider 08/14/22 10/08/22 Brea Quinn APRN SEARCH MARKETING ANALYST [address] [place] [address] 017195 Nurse Practitioner Dermatology 09/21/22 Brea Quinn APRN SEARCH MARKETING ANALYST [address] [place] [address] Assigned Surgical Provider 10/09/22 05/01/24 [place] [address] [address] Assigned Musculoskeletal Provider 10/09/22 05/01/24 Livan Sharif MD [address] [facility] [address] [place] [address] Assigned Heart and Vascular Provider 11/06/22 11/12/22 Catherine Cm MD [address] [place] [address] Assigned Heart and Vascular Provider 11/13/22 05/27/23 Sydnie Martinez RN Personal Advocate & Liaison (PAL) Family Medicine 03/28/23 07/31/23 Alfonso Renteria MD 5775 [facility] 200 [place] [address] Assigned Neuroscience Provider 04/02/23 09/29/24 Cheng Todd PA-C [address] [place] [address] Assigned PCP 04/30/23 07/15/23 Radha Lomeli APRN SEARCH MARKETING ANALYST [address] [place] [address] Assigned Heart and Vascular Provider 05/28/23 11/29/24 Jelena David OD [address] [facility] [place] [address] Ophthalmology 06/15/23 Pao Joseph, VJ Personal Advocate & Liaison (PAL) Nurse 08/01/23 11/07/23 Esha Grimm PA-C [address] [place] [address] Assigned PCP 07/16/23 Valery Veronica PA-C [address] [place] [address] Physician Item Processor Dermatology 09/19/23 Rey Tay MD [address] [place] [address] MD Gastroenterology 09/20/23 Rocky Zepeda DO [address] [place] [address] Physician Gastroenterology 09/20/23 Philip Dumont MD [address] [place] [address] Physician Ophthalmology 09/22/23 Meredith Carrera PA-C [address] [place] [address] Assigned Gastroenterology Provider 11/01/23 Neil Kent MD [address] [address] Dermatology 11/02/23 [place] [address] [place] [address] [address] Neurological Surgery 12/26/23 Audrey Waite PA-C [address] [place] [address] Physician Item Processor Dermatology 02/28/24 Valery Veronica PA-C 9[address]255 [address] [place] [address] Physician Item Processor Dermatology 04/10/24 Herminia Hatch MD [facility]5 [place] [address] Assigned Rheumatology Provider 07/02/24 Jelena David OD [address] [place] [address] [place] [address] Ophthalmology 08/30/24 [place] [address] [place] [address] Assigned Neuroscience Provider 09/30/24 Maru Man PA-C [address] [place] [address] Physician Item Processor Dermatology 10/03/24 Maru Man PA-C [address] [place] [address] Physician Item Processor Dermatology 10/22/24 Jelena David OD [address] [place] [address] [place] [address] Assigned Surgical Provider 10/31/24 Fabiano Correa NP [address] [place] [address] Assigned Heart and Vascular Provider 11/30/24 documented as of this encounter
--- OUTSIDE RECORDS SUMMARY | 2024-12-17 21:36 | XMS_ITS | Encounter Summary ---
Author Organization [facility] Address [address] [place] [address] Care Team Providers Care Equipment Specialist Name Role Phone Diana Desir Stanislav [facility] Unavailable Rain Galaviz PA-C Unavailable Tavia Wyatt MD Unavailable Erica Farrell APRN DISTRICT SALES COORDINATOR Unavailable Rich Barrett MD Unavailable [phone] Neil Kent MD Unavailable ThangKendrickDiana Stanislav [facility] Unavailable [phone] Livan Sharif MD Unavailable Catherine Cm MD Unavailable + Valery Veronica-C Unavailable Brea Quinn APRN DISTRICT SALES COORDINATOR Unavailable Esha Grimm PA-C Primary Care Provider Radha Lomeli APRN DISTRICT SALES COORDINATOR Unavailable Jelena David OD Unavailable Esha Grimm PA-C Unavailable [phone] Valery Veronica PA-C Unavailable Rey Tay MD Unavailable Duane Rocky Unavailable Philip Dumont MD Unavailable LoreMeredith mayers PA-C Unavailable [phone] Neil Kent MD Unavailable Juan Pablo Emmanuel MD Unavailable Audrey Waite PA-C Unavailable [phone] aVlery Veronica PA-C Unavailable Herminia Hatch MD Unavailable Jelena David OD Unavailable [phone] Juan Pablo Emmanuel MD Unavailable [phone] Maru Man-C Unavailable [phone] Maru Man-C Unavailable Jelena David OD Unavailable Fabiano Correa NP Unavailable [phone] Encounter Details Date Type Department Care Team (Late st Contact Info) Description 11/09/2024 MyC Medical Advice [facility] [address] [place] [address] Apolinar Gresham Social History Tobacco Use [...] Date Recorded PHQ-2 Score 1 10/24/2024 [facility] Health - Occupational Stress Questionnaire Answer Date [...] exercise at this level? 20 min 05/07/2024 [place] Depression Scale Answer Date Recorded [place] Depression Score 5 01/14/2021 Last EPDS Self [...] PM CDT Legal Sex Female 4:13 AM MATHEMATICAL TECHNICIAN Gender Identity Female 03/02/2021 5:45 PM CDT Sexual Orientation Straight 02/28/2020 12 :51 AM CDT documented as of this encounter Plan of Treatment Upcoming Encounters Date Type Department Care Team (Late st Contact Info) Description 12/19/2024 2:00 PM CDT Office Visit [facility] [address] [place] [phone] Lauren Claudio PA-C [address] [place] [address] 12/26/2024 7:30 AM CDT Office Visit [address] [address] Neil Kent MD 500 [place] [address] 04/16/2025 11:00 AM CDT Virtual Visit [facility] [place] 909 [facility] 4th [place] [phone] Meredith Carrera PA-C [address] [place] [address] 650295 documented as of this encounter Visit Diagnoses Not on filedocumented in this encounter Additional Health Concerns Infection Onset Date Last Indicated Resolved Time Rule Out COVID-11/20/2024 11/20/2024 11/21/2024 11:23 AM CDT Rule Out COVID-19 11/21/2024 11/21/2024 11/22/2024 12:10 AM CDT Influenza 11/21/2024 11/21/2024 11/28/2024 7:42 PM CDT Assessment Noted Time PHQ-9 Depression Total Score: 5 10/25/19 25 10:38 AM CDT documented as of this encounter Care Teams Equipment Specialist Relationship Specialty Start Date End Date Esha Grimm PA-C [address] [place] [phone] PCP - General Family Medicine 05/04/23 Diana Desir, [facility] [address] [place] [address] Pharmacist Pharmacist 04/17/21 Rain Galaviz PA-C [address] [place] [address] [address] [place] [address] Physician Chin Strap Sewer Dermatology 04/28/21 Tavia Wyatt MD [address] [place] [address] [address] [place] [address] Dermatology 07/14/21 Erica Farrell APRN DISTRICT SALES COORDINATOR [address] 646135 Nurse Practitioner Cardiovascular Disease 09/09/21 Rich Barrett MD [address] 270625 Physician Ophthalmology 01/21/22 Neil Kent MD 500 [place], [place] 229565 Dermatology 02/24/22 [facility] [address] [place] [address] Assigned MTM Pharmacist 04/07/22 Livan Sharif MD [address] [place] [address] Cardiovascular Disease 05/14/22 Catherine Cm MD [address] [address] Cardiovascular Disease 07/21/22 Valery Veronica, PA-C [address] [place] [place] [address] 125725 Physician Chin Strap Sewer Dermatology 07/21/22 Brea Quinn APRN DISTRICT SALES COORDINATOR [address] [place] [address] [phone] Nurse Practitioner Dermatology 09/21/22 Radha Lomeli APRN DISTRICT SALES COORDINATOR 6405 [facility] [address] [place] [address] Assigned Heart and Vascular Provider 05/28/23 11/29/24 Jelena David OD [address] [facility] [address] [place] [phone] MD Ophthalmology 06/15/23 Esha Grimm PA-C [address] [place] [phone] Assigned PCP 07/16/23 Valery Veronica PA-C [address] [place] [place] [address] 877345 Physician Chin Strap Sewer Dermatology 09/19/23 Rey Tay MD [address] [place] [address] 933905 Gastroenterology 09/20/23 Rocky Zepeda DO [address] [place] [address] 828485 Physician Gastroenterology 09/20/23 Pihlip Dumont MD [address] [place] [address] 565185 Physician Ophthalmology 09/22/23 Meredith Carrera PA-C [address] [place] [address] 366945 Assigned Gastroenterology Provider 11/01/23 Neil Kent MD [address] [place] [address] Dermatology 11/02/23 [place] [address] [place] [address] Neurological Surgery 12/26/23 Audrey Waite PA-C 500 [place] [address] Physician Chin Strap Sewer Dermatology 02/28/24 Valery Veronica PA-C [address] [place] [address] Physician Chin Strap Sewer Dermatology 04/10/24 Herminia Hatch MD [address] [place] [address] [id number] Assigned Rheumatology Provider 07/02/24 Jelena David OD [address] [place] [address] [place] [address] Ophthalmology 08/30/24 [place] [address] [place] [address] Assigned Neuroscience Provider 09/30/24 Maru Man PA-C [address] [place] [address] Physician Chin Strap Sewer Dermatology 10/03/24 Maru Man PA-C [address] [place] [address] Physician Chin Strap Sewer Dermatology 10/22/24 Jelena David OD [address] [facility] [place] [address] Assigned Surgical Provider 10/31/24 Fabiano Correa NP [address] [place] [address] Assigned Heart and Vascular Provider 11/30/24 documented as of this encounter
--- OUTSIDE RECORDS SUMMARY | 2024-12-17 21:36 | XMS_ITS | Encounter Summary ---
Author Organization [facility] Address [address] [place] [address] Care Team Providers Care Burr Grinder Name Role Phone Lita Oseguera Unavailable Unavailable Marija Edgar APRN TRADE FACILITATOR Primary Care Provider + Marija Edgar APRN TRADE FACILITATOR Unavailable [phone] Keisha Dotson MD Unavailable [phone] Diana Desir [facility] Unavailable Rain Galaviz PA-C Unavailable Tavia Wyatt MD Unavailable Erica Farrell APRN [facility] Unavailable Tavia Wyatt MD Unavailable [phone] Rich Barrett MD Unavailable [phone] Neil Kent MD Unavailable Roney Story DPM Unavailable [phone] Erica Farrell APRN TRADE FACILITATOR Unavailable Diana Desir [facility] Unavailable Jelena David OD Unavailable [phone] Galo Burrell MD Unavailable Unavailable Livan Sharif MD Unavailable Livan Sharif MD Unavailable IsraynaCatherine boothe MD Unavailable + Valery Veronica PA-C Unavailable [phone] IsCatherine hobbs MD Unavailable + Johnny Murillo MD Unavailable [phone] Brea Quinn DIE TECHNICIAN TRADE FACILITATOR Unavailable [phone] Brea Quinn DIE TECHNICIAN TRADE FACILITATOR Unavailable [phone] Jose Francisco Johnson MD Unavailable Livan Sharif MD Unavailable Isfaby, Catherine Marques MD Unavailable + Sydnie Martinez RN Unavailable Unavailable Alfonso Renteria MD Unavailable [phone] Esha Grimm PA-C Primary Care Provider Cheng Todd PA-C Unavailable Radha Lomeli DIE TECHNICIAN TRADE FACILITATOR Unavailable [phone] Jelena David SONJA Unavailable Pao Joseph RN Unavailable Unavailable Esha Grimm PA-C Unavailable [phone] Valery Veronica PA-C Unavailable [phone] Rey Tay MD Unavailable Rocky Zepeda DO Unavailable Philip Dumont MD Unavailable [phone] Meredith Carrera PA-C Unavailable [phone] Neil Kent MD Unavailable Juan Pablo Emmanuel MD Unavailable Audrey Waite PA-C Unavailable Valery Veronica PA-C Unavailable Herminia Hatch MD Unavailable Jelena David OD Unavailable Juan Pablo Emmanuel MD Unavailable Maru Man PA-C Unavailable [phone] Maru Man PA-C Unavailable +- Jelena David OD Unavailable [phone] Fabiano Correa NP Unavailable [phone] Encounter Details Date Type Department Care Team (Late st Contact Info) Description 04/07/2022 MyC Medical Advice [address] [address] Diana Desir, [facility] [address] [place] [address] Social History Tobacco Use Types Packs/Day Years [...] How often do you attend zoroastrian or christian serv ices? Never 09/22/2021 Do [...] Answer Date Recorded PHQ-2 Score 2 12/18/2021 [facility] of Occupat ional [...] in a usp (including now)? No 09/22/2021 Roosevelt Depression Scale Answer Date Recorded Roosevelt Depression Score 5 01/14/2021 Last EPDS Self Harm Result Not on file 01/14 Education Answer Date Recorded What is the highest level of school you have completed or the highest degree you have received? 12th grade 08/07/2020 Comments No Sex and Gender Information Value Date Recorded Sex Assigned at Female 03/02/2021 5:45 PM CDT Legal Sex Female 4:13 AM LOAN CLOSER Gender Identity Female 03/02/2021 5:45 PM CDT [...] Description 12/19/2024 2:00 PM CDT Office Visit [facility] [address] [place] [phone] Lauren Claudio PA-C [id number] [place] [address] 12/26/2024 7:30 AM CDT Office Visit [address] [address] Neil Kent MD [address] [place] [address] 04/16/2025 11:00 AM CDT Virtual Visit [facility] G[facility]ology Clinic [place] [address] [facility] 4th [place] [phone] Meredith Carrera PA-C [address] [place] [address] 351125 documented as of this encounter Visit Diagnoses Not on filedocumented in this encounter Additional Health Concerns Infection Onset Date Last Indicated Resolved Time Rule Out COVID-19 04/26/2022 04/26/2022 04/26/2022 6:47 AM CDT Rule Out COVID-19 05/17/2022 05/17/2022 05/17/2022 10:20 PM LOAN CLOSER Rule Out COVID-19 06/09/2022 06/09/2022 06/09/2022 9:35 AM LOAN CLOSER COVID-19 06/09/2022 06/09/2022 06/30/2022 11:4 1 PM LOAN CLOSER Rule Out COVID-19 11/10/2022 11/10/2022 11/11/2022 12:17 [...] documented as of this encounter Care Teams Burr Grinder Relationship Specialty Start Date End Date Marija Edgar APRN TRADE FACILITATOR PCP - General Nurse Practitioner 04/30/20 04/14/23 Esha Grimm PA-C [address] [place] [phone] PCP - General Family Medicine 05/04/23 Lita Oseguera Personal Advocate & Liaison (PAL) 02/28/20 03/27/23 Marija Edgar APRN TRADE FACILITATOR Assigned PCP 06/08/20 04/29/23 Keisha Dotson MD 909 [place] [address] Assigned Neuroscience Provider 06/04/20 04/01/23 Diana Desir, [facility] 30[address] [place] [address] Pharmacist Pharmacist 04/17/21 Rain Galaviz PA-C [address] [place] [address] [address] [place] [address] Physician Microfilm Technician Dermatology 04/28/21 Tavia Wyatt MD [address] [place] [address] [place] [address] Dermatology 07/14/21 Erica Farrell APRN TRADE FACILITATOR [address] [facility] [address] [place] [address] Nurse Practitioner Cardiovascular Disease 09/09/21 Tavia Wyatt MD [address] [place], [place] [address]00 Assigned Surgical Provider 11/29/21 05/07/22 Rich Barrett MD [address] [place], [place] 107190 Physician Ophthalmology 01/21/22 Neil Kent MD [address] [place], [place] 017785 Dermatology 02/24/22 Roney Story DPM [address] [facility] [address] [place], [place] 763297 Assigned Musculoskeletal Provider 03/20/22 08/13/22 Erica Farrell APRN TRADE FACILITATOR [address] [place] [address] Assigned Heart and Vascular Provider 04/03/22 04/16/22 Diana Desir, [facility] [address] [place] [address] Assigned MTM Pharmacist 04/07/22 Jelena David OD 3305 [facility] [place] [address] Assigned Surgical Provider 05/08/22 10/08/22 Galo Burrell MD Assigned Heart and Vascular Provider 04/17/22 06/11/22 Livan Sharif MD [address] [facility] [address] [place] [address] Cardiovascular Disease 05/14/22 Livan Sharif MD [address] [facility] [address] [place] [address] Assigned Heart and Vascular Provider 06/12/22 07/23/22 Catherine Cm MD [address] [facility] [address] [place] [address] Cardiovascular Disease 07/21/22 Valery Veronica, PA-C [address] [place] [address] Physician Microfilm Technician Dermatology 07/21/22 Catherine Cm MD [address] [facility] [address] [place] [address] Assigned Heart and Vascular Provider 07/24/22 11/05/22 Johnny Murillo MD [address] [place] [address] Assigned Musculoskeletal Provider 08/14/22 10/08/22 Brea Quinn APRN TRADE FACILITATOR [address] [place] [address] 787075 Nurse Practitioner Dermatology 09/21/22 Brea Quinn APRN TRADE FACILITATOR [address] [place] [address], [place] [address] Assigned Surgical Provider 10/09/22 05/01/24 [place] [address] [place] [address] Assigned Musculoskeletal Provider 10/09/22 05/01/24 Livan Sharif MD [address] [facility] [address] [place] [address] Assigned Heart and Vascular Provider 11/06/22 11/12/22 Catherine Cm MD [address] [facility] [place] 568605 Assigned Heart and Vascular Provider 11/13/22 05/27/23 Sydnie Martinez RN Personal Advocate & Liaison (PAL) Family Medicine 03/28/23 07/31/23 Alfonso Renteria MD 5775 [facility] 200 [place] [address] Assigned Neuroscience Provider 04/02/23 09/29/24 Cheng Todd PA-C [address] [place] [address] Assigned PCP 04/30/23 07/15/23 Radha Lomeli APRN TRADE FACILITATOR [address] [place] [address] Assigned Heart and Vascular Provider 05/28/23 11/29/24 Jelena David OD 3300 [facility] [place] [address] MD Ophthalmology 06/15/23 Pao Joseph, RN Personal Advocate & Liaison (PAL) Nurse 08/01/23 11/07/23 Esha Grimm PA-C [address] [place] [phone] Assigned PCP 07/16/23 Valery Veronica PA-C [address] [place] [address] 985865 Physician Microfilm Technician Dermatology 09/19/23 Rey Tay MD [address] [place] [address] 008625 MD Gastroenterology 09/20/23 Rocky Zepeda DO [address] [place] [address] 277785 Physician Gastroenterology 09/20/23 Philip Dumont MD 6 [place], [place] 207055 Physician Ophthalmology 09/22/23 Meredith Carrera PA-C [address] [place] [address] 914545 Assigned Gastroenterology Provider 11/01/23 Neil Kent MD [address] [address] Dermatology 11/02/23 [place] [address] [place] [address] Neurological Surgery 12/26/23 Audrey Waite PA-C 500 [place] [address] Physician Microfilm Technician Dermatology 02/28/24 Valery Veronica PA-C [id number] [address] [place] [address] Physician Microfilm Technician Dermatology 04/10/24 Herminia Hatch MD [address] [place] [address] Assigned Rheumatology Provider 07/02/24 Jelena David OD [address] [place] [address] [place] [address] Ophthalmology 08/30/24 [place] [address] [place] [address] Assigned Neuroscience Provider 09/30/24 Maru Man PA-C [address] [place] [address] Physician Microfilm Technician Dermatology 10/03/24 Maru Man PA-C [address] [place] [address] Physician Microfilm Technician Dermatology 10/22/24 Jelena David OD [address] [place] [address] [place] [address] Assigned Surgical Provider 10/31/24 Fabiano Correa NP [address] [place] [address] Assigned Heart and Vascular Provider 11/30/24 documented as of this encounter
--- OUTSIDE RECORDS SUMMARY | 2024-12-17 21:36 | XMS_ITS | Encounter Summary ---
Author Organization [facility] Address [address] [place] [address] Care Team Providers Care Laboratory Operations Coordinator Name Role Phone Lita Oseguera Unavailable Unavailable Marija Edgar APRN MONTESSORI TODDLER TEACHER Primary Care Provider + Marija Edgar APRN MONTESSORI TODDLER TEACHER Unavailable [phone] Keisha Dotson MD Unavailable Diana Desir [facility] Unavailable [phone] Rain Galaviz PA-C Unavailable Tavia Wyatt MD Unavailable Erica Farrell APRN MONTESSORI TODDLER TEACHER Unavailable Tavia Wyatt MD Unavailable [phone] Rich Barrett MD Unavailable [phone] Neil Kent MD Unavailable Roney Story DPM Unavailable [phone] Diana Desir [facility] Unavailable Jelena David OD Unavailable Galo Burrell MD Unavailable Unavailable Livan Sharif MD Unavailable Livan Sharif MD Unavailable IsCatherine hobbs MD Unavailable + Valery Veronica PA-C Unavailable Catherine Cm MD Unavailable + Johnny Murillo MD Unavailable Brea Quinn ADULT BASIC STUDIES TEACHER MONTESSORI TODDLER TEACHER Unavailable [phone] Brea Quinn ADULT BASIC STUDIES TEACHER MONTESSORI TODDLER TEACHER Unavailable [phone] Jose Francisco Johnson MD Unavailable Livan Sharif MD Unavailable Catherine Cm MD Unavailable + Sydnie Martinez RN Unavailable Unavailable Alfonso Renteria MD Unavailable [phone] Esha Grimm PA-C Primary Care Provider Cheng Todd PA-C Unavailable Radha Lomeli ADULT BASIC STUDIES TEACHER MONTESSORI TODDLER TEACHER Unavailable Jelena David OD Unavailable Pao Joseph RN Unavailable Unavailable Esha Grimm PA-C Unavailable [phone] Valery Veronica PA-C Unavailable Rey Tay MD Unavailable Rocky Zepeda DO Unavailable Philip Dumont MD Unavailable Meredith Carrera PA-C Unavailable Neil Kent MD Unavailable Juan Pablo Emmanuel MD Unavailable Audrey Waite PA-C Unavailable Valery Veronica PA-C Unavailable Herminia Hatch MD Unavailable Jelena David OD Unavailable [phone] Juan Pablo Emmanuel MD Unavailable [phone] Maru Man PA-C Unavailable +[phone] Maru Man PA-C Unavailable +[phone] Jelena David OD Unavailable [phone] Fabiano Correa NP Unavailable [phone] Encounter Details Date Type Department Care Team (Late st Contact Info) Description 04/20/2022 MyC Medical Advice [facility] Heart [address] [place] [phone] Margaret Rendon RN Social History Tobacco Use [...] How often do you attend orthodoxy or moravian serv ices? Never 09/22/2021 Do [...] [facility] of Occupat ional [facility] - Occupational Stress Questionnaire Answer [...] a group home (including now)? No 09/22/2021 [place] Depression Scale Answer Date Recorded [...] PM CDT Legal Sex Female 4:13 AM TAX COLLECTION COORDINATOR Gender Identity Female 03/02/2021 5:45 PM [...] Description 12/19/2024 2:00 PM CDT Office Visit [facility] [address] [place] [phone] Lauren Claudio PA-C [address] [place] [address] 12/26/2024 7:30 AM CDT Office Visit [facility] [address] [phone] Neil Kent MD [address] [place] [address] 264595 04/16/2025 11:00 AM CDT Virtual Visit [facility] Gastroenterology Clinic [address] [place] [address] Meredith Carrera PA-C [address] [place] [address] documented as of this encounter Visit Diagnoses Not on filedocumented in this encounter Additional Health Concerns Infection Onset Date Last Indicated Resolved Time Rule Out COVID-19 04/26/2022 04/26/2022 04/26/2022 6:47 AM CDT Rule Out COVID-19 05/17/2022 05/17/2022 05/17/2022 10:20 PM TAX COLLECTION COORDINATOR Rule Out COVID-19 06/09/2022 06/09/2022 06/09/2022 9:35 AM TAX COLLECTION COORDINATOR COVID-19 06/09/2022 06/09/2022 06/30/2022 11:4 1 PM TAX COLLECTION COORDINATOR Rule Out COVID-19 11/10/2022 11/10/2022 11/11/2022 [...] as of this encounter Care Teams Laboratory Operations Coordinator Relationship Specialty Start Date End Date Gilland, Marija, ADULT BASIC STUDIES TEACHER MONTESSORI TODDLER TEACHER PCP - General Nurse Practitioner 04/30/20 04/14/23 Esha Grimm PA-C [address] [place] [phone] PCP - General Family Medicine 05/04/23 Lita Oseguera Personal Advocate & Liaison (PAL) 02/28/20 03/27/23 Marija Edgar APRN MONTESSORI TODDLER TEACHER Assigned PCP 06/08/20 04/29/23 Keisha Dotson MD 909 [place], [place] 204275 Assigned Neuroscience Provider 06/04/20 04/01/23 Diana Desir, [facility] 30[address] [place], [place] 388456 Pharmacist Pharmacist 04/17/21 Rain Galaviz PA-C [address] [place] [address] [address] [place] [address] Physician Copy Center Associate Dermatology 04/28/21 Tavia Wyatt MD [address] [place] [address] EN[place] KNUTSON [id number] Dermatology 07/14/21 Erica Farrell APRN MONTESSORI TODDLER TEACHER 6405 [facility] [address] [place] [address] Nurse Practitioner Cardiovascular Disease 09/09/21 Tavia Wyatt MD [address] [place], [place] [id number] Assigned Surgical Provider 11/29/21 05/07/22 Rich Barrett MD 101 [place], [place] 878590 Physician Ophthalmology 01/21/22 Neil Kent MD 500 [place], [place] 189755 Dermatology 02/24/22 Roney Story DPM [address] [facility] [address] [place], [place] 322237 Assigned Musculoskeletal Provider 03/20/22 08/13/22 Diana Desir, [facility] [address] [place], [place] 535716 Assigned MTM Pharmacist 04/07/22 Jelena David OD 3305 [facility] [place] [address] Assigned Surgical Provider 05/08/22 10/08/22 Galo Burrell MD Assigned Heart and Vascular Provider 04/17/22 06/11/22 Livan Sharif MD [address] [place] [address] [place] [address] Cardiovascular Disease 05/14/22 Livan Sharif MD [address] [place] [address] [place] [address] Assigned Heart and Vascular Provider 06/12/22 07/23/22 Catherine Cm MD 6405 [facility] [address] [place] [address] Cardiovascular Disease 07/21/22 Valery Veronica, PAUcheC [address] [place] [address] Physician Copy Center Associate Dermatology 07/21/22 Catherine Cm MD [address] [place] [phone] [place] [address] Assigned Heart and Vascular Provider 07/24/22 11/05/22 Johnny Murillo MD [address] [place] [address] Assigned Musculoskeletal Provider 08/14/22 10/08/22 Brea Quinn APRN MONTESSORI TODDLER TEACHER [address] [place] [address] 962385 Nurse Practitioner Dermatology 09/21/22 Brea Quinn APRN MONTESSORI TODDLER TEACHER [address] [place] [address] [place] [address] Assigned Surgical Provider 10/09/22 05/01/24 [place] [address] [place] [address] Assigned Musculoskeletal Provider 10/09/22 05/01/24 Livan Sharif MD [address] [place] [address] [place], [place] 516265 Assigned Heart and Vascular Provider 11/06/22 11/12/22 Catherine Cm MD [address] [place] [address] [place] [address] Assigned Heart and Vascular Provider 11/13/22 05/27/23 Sydnie Martinez RN Personal Advocate & Liaison (PAL) Family Medicine 03/28/23 07/31/23 Alfonso Renteria MD 5775 [facility] 200 [place] [address] Assigned Neuroscience Provider 04/02/23 09/29/24 Cheng Todd PA-C [address] [place] [address] [phone] Assigned PCP 04/30/23 07/15/23 Radha Lomeli APRN MONTESSORI TODDLER TEACHER [address] [place] [address] Assigned Heart and Vascular Provider 05/28/23 11/29/24 Jelena David OD [address] [facility] [place] [address] Ophthalmology 06/15/23 Pao Joseph, VJ Personal Advocate & Liaison (PAL) Nurse 08/01/23 11/07/23 Esha Grimm PA-C [address] [place] [address] Assigned PCP 07/16/23 Valery Veronica PA-C [address] [place] [address] Physician Copy Center Associate Dermatology 09/19/23 Rey Tay MD [address] [place] [address] 101485 MD Gastroenterology 09/20/23 Rocky Zepeda DO [address] [place] [address] 798115 Physician Gastroenterology 09/20/23 Philip Dumont MD [address] [place] [address] 564565 Physician Ophthalmology 09/22/23 Meredith Carrera PA-C [address] [place] [address] 752665 Assigned Gastroenterology Provider 11/01/23 Neil Kent MD [address] [address] Dermatology 11/02/23 [place] [address] [place] [address] Neurological Surgery 12/26/23 Audrey Waite PA-C [address] [place] [address] Physician Copy Center Associate Dermatology 02/28/24 Valery Veronica PA-C 433759 [address] [place] [address] [place] [address] Physician Copy Center Associate Dermatology 04/10/24 Herminia Hatch MD [address] [place] [address] Assigned Rheumatology Provider 07/02/24 Jelena David OD [address] [place] [address] [place] [address] Ophthalmology 08/30/24 [place] [address] [place] [address] Assigned Neuroscience Provider 09/30/24 Maru Man PA-C [address] [place] [address] Physician Copy Center Associate Dermatology 10/03/24 Maru Man PA-C [address] [place] [address] Physician Copy Center Associate Dermatology 10/22/24 Jelena David OD [address] [place] [address] [place] [address] Assigned Surgical Provider 10/31/24 Fabiano Correa NP [address] [place] [address] Assigned Heart and Vascular Provider 11/30/24 documented as of this encounter
--- OUTSIDE RECORDS SUMMARY | 2024-12-17 21:36 | XMS_ITS | Encounter Summary ---
Author Organization [facility] Address [address] [place] [address] Care Team Providers Care Tape Controlled Machine Stitcher Name Role Phone Lita Oseguera Unavailable Unavailable Marija Edgar APRN PLATE PREPARER Primary Care Provider + Chanelle Mccann APRN CNM Unavailab le Kyara De La Fuente RN Unavailable [phone] Marija Edgar APRN PLATE PREPARER Unavailable Mynor Broussard MD Unavailable [phone] Keisha Dotson MD Unavailable Galo Burrell MD Unavailable Unavailable Cristina Wood Unavailable Diana Desir [facility] Unavailable Rain Galaviz PA-C Unavailable [phone] Summer Lara MD Unavailable [phone] Summer Lara MD Unavailable [phone] Summer Lara MD Unavailable [phone] Tavia Wyatt MD Unavailable [phone] Johnny Murillo MD Unavailable Erica Farrell APRN PLATE PREPARER Unavailable VikasTeresita [facility] Unavailable Tavia Wyatt MD Unavailable Diana Desir [facility] Unavailable Rich Barrett MD Unavailable [phone] Neil Kent MD Unavailable Roney Story DP Unavailable Erica Farrell APRN PLATE PREPARER Unavailable Diana Desir [facility] Unavailable Jelena David Unavailable Galo Burrell MD Unavailable Unavailable Livan Sharif MD Unavailable Livan Sharif MD Unavailable Catherine Cm MD Unavailable + Valery Veronica-C Unavailable [phone] Catherine Cm MD Unavailable + Johnny Murillo MD Unavailable [phone] Brea Quinn SINGLE STROKE PREFORMER PLATE PREPARER Unavailable [phone] Brea Quinn SINGLE STROKE PREFORMER PLATE PREPARER Unavailable [phone] Jose Francisco Johnson MD Unavailable Livan Sharif MD Unavailable Catherine Cm MD Unavailable + Sydnie Martinez RN Unavailable Unavailable Alfonso Renteria MD Unavailable Esha Grimm PA-C Primary Care Provider Cheng Todd PA-C Unavailable Radha Lomeli SINGLE STROKE PREFORMER PLATE PREPARER Unavailable Jelena David OD Unavailable [phone] Pao Joseph RN Unavailable Unavailable Esha Grimm PA-C Unavailable [phone] Valery Veronica PA-C Unavailable Rey Tay [...] David OD Unavailable Fabiano Correa NP Unavailable Encounter Details Date Type Department Care Team (Late st Contact Info) Description 01/06/2021 Orders Only [facility] - Surgical Specialties Service Line [address] [place] [address] Saurabh Marcial MD [address] [facility] [address] [place] [address] Indication for care in labor [...] Answer Date Recorded PHQ-2 Score 3 09/29/2020 [facility] - Occupational Stress Questionnaire Answer [...] Legal Sex Female 4:13 AM SALES SUPPORT ADMINISTRATOR Gender Identity Female 03/02/2021 5:45 PM [...] Description 12/19/2024 2:00 PM CDT Office Visit [facility] [address] [place] [phone] Lauren Claudio PA-C [address] [place] [address] 12/26/2024 7:30 AM CDT Office Visit [facility] [address] [phone] eNil Kent MD [address] [place] [address] 675505 04/16/2025 11:00 AM CDT Virtual Visit [facility] Gastroenterology [address] [place] [phone] Meredith Carrera PA-C [address] [place] [address] documented as of this encounter Results * Asymptomatic COVID-19 Virus (Coronavirus) by PCR (01/09/2021 10:44 AM CDT) COVID-19 Virus PCR to [facility] - Source Nasopharyngeal 01/09/2021 10:45 AM CDT [facility] COVID-19 Virus PCR to [facility] - Result Test received-See reflex to IDDL test SARS CoV2 (COVID-19) Virus RT-PCR 01/09/2021 6:32 PM CDT [facility], [facility] Specimen from nasopharyngeal structure (specimen) 01/09/2021 10:44 AM CDT 01/09/2021 10:45 AM CDT us Saurabh Marcial MD LAB - MICRO GENERAL DONYA HERRERA Final Result [facility], [facility] [address] [place] [address], [place] [facility] [address] [place] [address], [facility] [phone] documented in this encounter Visit Diagnoses Diagnosis Indication for care in labor and delivery, antepartum- Primary Unspecified indication for care or intervention related to labor and delivery, antepartum documented in this encounter Additional Health Concerns Infection Onset Date Last Indicated Resolved Time Rule Out COVID-19 05/11/2021 05/11/2021 05/13/2021 10:18 AM CDT Rule Out COVID-19 07/13/2021 07/13/2021 07/14/2021 3:04 PM SALES SUPPORT ADMINISTRATOR Rule Out COVID-19 07/18/2021 07/18/2021 07/20/2021 1:56 PM SALES SUPPORT ADMINISTRATOR COVID-19 07/18/2021 07/18/2021 08/08/2021 11:3 9 PM SALES SUPPORT ADMINISTRATOR Rule Out COVID-19 12/18/2021 12/18/2021 12/19/2021 11:34 AM CDT Rule Out COVID-19 02/24/2022 02/24/2022 02/25/2022 1:08 PM CDT Rule Out COVID-19 04/26/2022 04/26/2022 04/26/2022 6:47 AM CDT Rule Out COVID-19 05/17/2022 05/17/2022 05/17/2022 10:20 PM SALES SUPPORT ADMINISTRATOR Rule Out COVID-19 06/09/2022 06/09/2022 06/09/2022 9:35 AM SALES SUPPORT ADMINISTRATOR COVID-19 06/09/2022 06/09/2022 06/30/2022 11:4 1 PM SALES SUPPORT ADMINISTRATOR Rule Out COVID-19 11/10/2022 11/10/2022 11/11/2022 [...] documented as of this encounter Care Teams Tape Controlled Machine Stitcher Relationship Specialty Start Date End Date Marija Edgar APRN PLATE PREPARER PCP - General Nurse Practitioner 04/30/20 04/14/23 Esha Grimm PA-C [address] [place] [phone] PCP - General Family Medicine 05/04/23 Lita Oseguera Personal Advocate & Liaison (PAL) 02/28/20 03/27/23 Chanelle Mccann APRN CNM [address] [place] [address] Assigned OBGYN Provider 05/02/2005/09 Kyara De La Fuente, RN Specialty Lobby Attendant Neurology 06/04/20 03/05/21 Marija Edgar APRN PLATE PREPARER Assigned PCP 06/08/20 04/29/23 Mynor Broussard MD [address] [facility] [place] [place] [place] [address] Assigned Surgical Provider 06/01/20 11/28/21 Keisha Dotson MD [address] [place] [address] Assigned Neuroscience Provider 06/04/20 04/01/23 Galo Burrell MD Assigned Heart and Vascular Provider 10/05/20 04/02/22 Cristina Wood Financial Resource Worker 02/09/21 02/09/21 Diana Desir, [facility] [address] [place], [place] 322626 Pharmacist Pharmacist 04/17/21 Rain Galaviz PA-C [address] [place] [address] [address] [place] [address] Physician Chief Executive Dermatology 04/28/21 Summer Lara MD [address] [place] [address] 420704 Assigned OBGYN Provider 05/10/2105/23 Summer Lara MD [address] [place] [address] 263734 Assigned OBGYN Provider 05/31/21 2 Summer Lara MD [address] [place] [address] 366624 Assigned OBGYN Provider 05/24/2105/30 Tavia Wyatt MD [address] [place] [address] Dermatology 07/14/21 Johnny Murillo MD [address] [address] Assigned Musculoskeletal Provider 08/30/21 03/17/22 Erica Farrell APRN PLATE PREPARER [address] [facility] [address] [place] [address] Nurse Practitioner Cardiovascular Disease 09/09/21 [facility] [address] [place] [place], [place] [phone] Pharmacist Pharmacist 09/24/21 09/29/21 Tavia Wyatt MD [address] [place] [address] Assigned Surgical Provider 11/29/21 05/07/22 [facility] [address] [place] [address] Assigned MTM Pharmacist 01/02/22 Rich Barrett MD [facility] [place] [address] Physician Ophthalmology 01/21/22 Neil Kent MD 500 [place] [address] Dermatology 02/24/22 Roney Story DPM [address] [facility] [address] [place], [place] 964587 Assigned Musculoskeletal Provider 03/20/22 08/13/22 Erica Farrell APRN PLATE PREPARER [address] [place] [address] Assigned Heart and Vascular Provider 04/03/22 04/16/22 Diana Desir, [facility] 30[address] [place] [address] Assigned MTM Pharmacist 04/07/22 Jelena David OD [address] [facility] [place] [address] Assigned Surgical Provider 05/08/22 10/08/22 Galo Burrell MD Assigned Heart and Vascular Provider 04/17/22 06/11/22 Livan Sharif MD [address] [place] [address] Cardiovascular Disease 05/14/22 Livan Sharif MD [address] [place] [address] Assigned Heart and Vascular Provider 06/12/22 07/23/22 Catherine Cm MD [address] [place] [address] Cardiovascular Disease 07/21/22 Valery Veronica PA-C [address] [place] [address] Physician Chief Executive Dermatology 07/21/22 Catherine Cm MD [address] [place] [address] [place] [address] Assigned Heart and Vascular Provider 07/24/22 11/05/22 Johnny Murillo MD [facility] [address] 344784 Assigned Musculoskeletal Provider 08/14/22 10/08/22 Brea Quinn APRN PLATE PREPARER [address] [place] [address] [phone] Nurse Practitioner Dermatology 09/21/22 Brea Quinn APRN PLATE PREPARER [address] [place] [address] PA [id number] Assigned Surgical Provider 10/09/22 05/01/24 [place] [address] [place] [place] [address] [place] [address] 185927 Assigned Musculoskeletal Provider 10/09/22 05/01/24 Livan Sharif MD [address] [place] [address] [place] 848005 Assigned Heart and Vascular Provider 11/06/22 11/12/22 Catherine Cm MD [address] [place] 277465 Assigned Heart and Vascular Provider 11/13/22 05/27/23 Sydnie Martinez, VJ Personal Advocate & Liaison (PAL) Family Medicine 03/28/23 07/31/23 Alfonso Renteria MD 5775 [facility] 200 [place] [address] Assigned Neuroscience Provider 04/02/23 09/29/24 Cheng Todd PA-C [address] [place] [address] [phone] Assigned PCP 04/30/23 07/15/23 Radha Lomeli APRN PLATE PREPARER [address] [facility] [address] [place] [address] Assigned Heart and Vascular Provider 05/28/23 11/29/24 Jelena David OD [address] [facility] [place] [address] Ophthalmology 06/15/23 Pao Joseph, VJ Personal Advocate & Liaison (PAL) Nurse 08/01/23 11/07/23 Esha Grimm PA-C [address] [place] [phone] Assigned PCP 07/16/23 Valery Veronica PA-C [address] [place] [address] 621825 Physician Chief Executive Dermatology 09/19/23 Rey Tay MD [address] [place] [address] 141395 MD Gastroenterology 09/20/23 Rocky eZpeda DO [address] [place] [address] 309565 Physician Gastroenterology 09/20/23 Philip Dumont MD [address] [place] [address] Physician Ophthalmology 09/22/23 Meredith Carrera PA-C [address] [place] [address] 708385 Assigned Gastroenterology Provider 11/01/23 Neil Kent MD [address] [place] [address] 389750 MD Dermatology 11/02/23 [place] [address] [place] [address] 334947 Neurological Surgery 12/26/23 Audrey Waite PA-C [address] [place] [address] Physician Chief Executive Dermatology 02/28/24 Valery Veronica PA-C 527924 [place] [address] Physician Chief Executive Dermatology 04/10/24 Herminia Hatch MD [facility]5 [place] [address] Assigned Rheumatology Provider 07/02/24 Jelena David OD [address] [facility] [place] [address] Ophthalmology 08/30/24 [place] [address] [place], [place] [address] Assigned Neuroscience Provider 09/30/24 Maru Man PA-C [address] [place] [address] Physician Chief Executive Dermatology 10/03/24 Maru Man PA-C [address] [place] [address] Physician Chief Executive Dermatology 10/22/24 Jelena David OD [address] [facility] [place] [address] Assigned Surgical Provider 10/31/24 Fabiano Correa NP [address] [place] [address] Assigned Heart and Vascular Provider 11/30/24 documented as of this encounter
--- OUTSIDE RECORDS SUMMARY | 2024-12-17 21:36 | XMS_ITS | Encounter Summary ---
Author Organization [facility] Address [address] [place] [address] Care Team Providers Care Sap Functional Analyst Name Role Phone Lita Oseguera Unavailable Unavailable Marija Edgar APRN FLIGHT RADIO OPERATOR Primary Care Provider + Chanelle Mccann CLINICAL REIMBURSEMENT SPECIALIST CNM Unavailab le Kyara De La Fuente RN Unavailable [phone] Marija Edgar APRN FLIGHT RADIO OPERATOR Unavailable Mynor Broussard MD Unavailable [phone] Keisha Dotson MD Unavailable Stacey Briones SHEET METAL ASSEMBLER AND RIVETER Unavailable [phone] Mary Mejia Unavailable Unavailable Galo Burrell MD Unavailable Unavailable Cristina Wood Unavailable Lesley Guillermo CHW Unavailable Meredith Bedoya Unavailable Unavailable Cristina Wood Unavailable Diana Desir [facility] Unavailable Rain Galaviz PA-C Unavailable Summer Lara MD Unavailable [phone] Summer Lara MD Unavailable [phone] Summer Lara MD Unavailable [phone] Tavia Wyatt MD Unavailable [phone] Johnny Murillo MD Unavailable [phone] Erica Farrell APRN FLIGHT RADIO OPERATOR Unavailable Teresita Bean [facility] Unavailable Tavia Wyatt MD Unavailable [phone] Diana [place] [facility] Unavailable [phone] Rich Barrett MD Unavailable Neil Kent MD Unavailable Roney Story DPM Unavailable Bud, Erica [place] CLINICAL REIMBURSEMENT SPECIALIST FLIGHT RADIO OPERATOR Unavailable Diana Desir [facility] Unavailable [phone] Jelena David Radha Unavailable [phone] Galo Burrell MD Unavailable Unavailable Livan Sharif MD Unavailable + Livan Sharif MD Unavailable + Catherine Cm MD Unavailable + Valery Veronica PA-C Unavailable [phone] Catherine Cm MD Unavailable + Johnny Murillo MD Unavailable [phone] Brea Quinn CLINICAL REIMBURSEMENT SPECIALIST FLIGHT RADIO OPERATOR Unavailable [phone] Brea Quinn CLINICAL REIMBURSEMENT SPECIALIST FLIGHT RADIO OPERATOR Unavailable [phone] Jose Francisco Johnson MD Unavailable Livan Sharif MD Unavailable Catherine Cm MD Unavailable + Sydnie Martinez RN Unavailable Unavailable Alfonso Renteria MD Unavailable [phone] Esha Grimm PA-C Primary Care Provider Cheng Todd PA-C Unavailable Radha Lomeli APRN FLIGHT RADIO OPERATOR Unavailable Jelena David OD Unavailable Pao Joseph RN Unavailable Unavailable Esha Grimm PA-C Unavailable [phone] Valery Veronica PA-C Unavailable [phone] Rey Tay MD Unavailable Rocky Zepeda DO [...] Team (Late st Contact Info) Description 10/02/2020 [facility] [address] [place] [address] Stacey Briones, [facility] Social History Tobacco Use Types Packs/Day Years [...] Date Recorded PHQ-2 Score 3 09/29/2020 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 Gender Identity Female 03/02/2021 5:45 PM [...] Description 12/19/2024 2:00 PM CDT Office Visit [facility] [address] [place] [address] Lauren Claudio PA-C [address] [place] [address] [phone] 12/26/2024 7:30 AM CDT Office Visit [facility] [address] [phone] Neil Kent MD [address] [place] [address] 04/16/2025 11:00 AM CDT Virtual Visit [facility] [place] [address] [place] [address] 4th [place] [phone] Meredith Carrera PA-C [address] [place] [address] documented as of this encounter Visit Diagnoses Not on filedocumented in this encounter Additional Health Concerns Infection Onset Date Last Indicated Resolved Time Rule Out COVID-19 11/05/2020 11/05/2020 11/06/2020 1:09 PM CDT Rule Out COVID-19 05/11/2021 05/11/2021 05/13/2021 10:18 AM CDT Rule Out COVID-19 07/13/2021 07/13/2021 07/14/2021 3:04 PM CLASSROOM TEACHER Rule Out COVID-19 07/18/2021 07/18/2021 07/20/2021 1:56 PM CLASSROOM TEACHER COVID-19 07/18/2021 07/18/2021 08/08/2021 11:3 9 PM CLASSROOM TEACHER Rule Out COVID-19 12/18/2021 12/18/2021 12/19/2021 11:34 AM CDT Rule Out COVID-19 02/24/2022 02/24/2022 02/25/2022 1:08 PM CDT Rule Out COVID-19 04/26/2022 04/26/2022 04/26/2022 6:47 AM CDT Rule Out COVID-19 05/17/2022 05/17/2022 05/17/2022 10:20 PM CLASSROOM TEACHER Rule Out COVID-19 06/09/2022 06/09/2022 06/09/2022 9:35 AM CLASSROOM TEACHER COVID-19 06/09/2022 06/09/2022 06/30/2022 11:4 1 PM CLASSROOM TEACHER Rule Out COVID-19 11/10/2022 11/10/2022 11/11/2022 [...] as of this encounter Care Teams Sap Functional Analyst Relationship Specialty Start Date End Date Marija Edgar APRN FLIGHT RADIO OPERATOR PCP - General Nurse Practitioner 04/30/20 04/14/23 Esha Grimm PA-C [address] [place] [phone] PCP - General Family Medicine 05/04/23 Lita Oseguera Personal Advocate & Liaison (PAL) 02/28/20 03/27/23 Chanelle Mccann APRN CNM [address] [place] [address] 200 [place], [place] 196937 Assigned OBGYN Provider 05/02/2005/09 Kyara De La Fuente, VJ Specialty Cafe Server Neurology 06/04/20 03/05/21 Marija Edgar APRN FLIGHT RADIO OPERATOR Assigned PCP 06/08/20 04/29/23 Mynor Broussard MD 6363 [facility] 500 [place] [address] Assigned Surgical Provider 06/01/20 11/28/21 Keisha Dotson MD 909 [place] [address] Assigned Neuroscience Provider 06/04/20 04/01/23 Stacey Briones, SHEET METAL ASSEMBLER AND RIVETER Lead Cafe Server Primary Care - CC 08/11/2012/30 Mary Mejia Financial Resource Worker 09/02/20 10/06/20 Galo Burrell MD Assigned Heart and Vascular Provider 10/05/20 04/02/22 Cristina Wood Financial Resource Worker 10/07/20 10/14/20 Lesley Guillermo, [facility] Community Health Worker 10/23/2012/30 Meredith Bedoya Financial Resource Worker 10/23/20 11/23/20 Cristina Wood Financial Resource Worker 02/09/21 02/09/21 Diana Desir, [facility] [address] [place] [address] Pharmacist Pharmacist 04/17/21 Rain Galaviz PA-C [address] [place] [address] [place] [address] Physician Digital Project Coordinator Dermatology 04/28/21 Summer Lara MD [address] [place] [address] 985304 Assigned OBGYN Provider 05/10/2105/23 Summer Lara MD [address] [place] [address] 041554 Assigned OBGYN Provider 05/31/21 Summer Lara MD [address] [place] [address] 894524 Assigned OBGYN Provider 05/24/2105/30 Tavia Wyatt MD [address] [place] [address] 461324 Dermatology 07/14/21 Johnny Murillo MD [address] [place] [address] Assigned Musculoskeletal Provider 08/30/21 03/17/22 Erica Farrell APRN FLIGHT RADIO OPERATOR 6405 [facility] [address] [place] [address] Nurse Practitioner Cardiovascular Disease 09/09/21 Teresita Bean [facility] [address] [place] [phone] Pharmacist Pharmacist 09/24/21 09/29/21 Tavia Wyatt MD [address] [place], [place] 094950 Assigned Surgical Provider 11/29/21 05/07/22 [facility] 3033 [place] [address] Assigned MTM Pharmacist 01/02/22 Rich Barrett MD 3033 [place] [address] Physician Ophthalmology 01/21/22 Neil Kent MD 500 [place], [place] 935135 Dermatology 02/24/22 Roney Story DPM [address] [facility] [address] [place] [address] Assigned Musculoskeletal Provider 03/20/22 08/13/22 Erica Farrell APRN FLIGHT RADIO OPERATOR 1700 [place] [address] Assigned Heart and Vascular Provider 04/03/22 04/16/22 Diana Desir, [facility] [address] [place] [address] Assigned MTM Pharmacist 04/07/22 Jelena David [place] [address] [facility] [place] [address] Assigned Surgical Provider 05/08/22 10/08/22 Galo Burrell MD Assigned Heart and Vascular Provider 04/17/22 06/11/22 Livan Sharif MD [address] [place] [address] Cardiovascular Disease 05/14/22 Livan Sharif MD [address] [place] [address] Assigned Heart and Vascular Provider 06/12/22 07/23/22 Catherine Cm MD [address] [place] [address] Cardiovascular Disease 07/21/22 Valery Veronica PAUcheC 909 [place] [address] Physician Digital Project Coordinator Dermatology 07/21/22 Catherine Cm MD [address] [place] [address] Assigned Heart and Vascular Provider 07/24/22 11/05/22 Johnny Murillo MD [address] [address] Assigned Musculoskeletal Provider 08/14/22 10/08/22 Brea Quinn APRN FLIGHT RADIO OPERATOR [address] [place] [address] 677395 Nurse Practitioner Dermatology 09/21/22 Brea Quinn APRN FLIGHT RADIO OPERATOR [address] [place] [address] [place] [address] Assigned Surgical Provider 10/09/22 05/01/24 [place] [address] [facility] 300 [place] [address] Assigned Musculoskeletal Provider 10/09/22 05/01/24 Livan Sharif MD 6405 [facility] [address] [place] [address] Assigned Heart and Vascular Provider 11/06/22 11/12/22 Catherine Cm MD 6405 [facility] [address] [place] 247425 Assigned Heart and Vascular Provider 11/13/22 05/27/23 Sydnie Martinez RN Personal Advocate & Liaison (PAL) Family Medicine 03/28/23 07/31/23 Alfonso Renteria MD 5775 [facility] 200 [place] [address] Assigned Neuroscience Provider 04/02/23 09/29/24 Cheng Todd PA-C [address] [place] [address]49 Assigned PCP 04/30/23 07/15/23 Radha Lomeli APRN FLIGHT RADIO OPERATOR 6405 [facility] [address] [place] [address] Assigned Heart and Vascular Provider 05/28/23 11/29/24 Jelena David OD [address] [facility] [place] [address] Ophthalmology 06/15/23 Pao Joseph, VJ Personal Advocate & Liaison (PAL) Nurse 08/01/23 11/07/23 Esha Grimm PA-C [address] [place] [phone] Assigned PCP 07/16/23 Valery Veronica PA-C [address] [place] [address] Physician Digital Project Coordinator Dermatology 09/19/23 Rey Tay MD [address] [place] [address] 955565 Gastroenterology 09/20/23 Rocky Zepeda DO [address] [place] [address] Physician Gastroenterology 09/20/23 Philip Dumont MD [address] [place] [address] Physician Ophthalmology 09/22/23 Meredith Carrera PA-C [address] [place] [address] Assigned Gastroenterology Provider 11/01/23 Neil Kent MD [address] [address] Dermatology 11/02/23 [place] [address] [place], [place] 212[address] Neurological Surgery 12/26/23 Audrey Waite PA-C [address] [place] [address] Physician Digital Project Coordinator Dermatology 02/28/24 Valery Veronica PA-C 736341 [address] [place] [address] Physician Digital Project Coordinator Dermatology 04/10/24 Herminia Hatch MD [address] [place] [address] [phone] Assigned Rheumatology Provider 07/02/24 Jelena David OD [address] [place] [address] [place] [address] Ophthalmology 08/30/24 [place] [address] [place] 844947 Assigned Neuroscience Provider 09/30/24 Maru Man PA-C [address] [place] [address] Physician Digital Project Coordinator Dermatology 10/03/24 Maru Man PA-C [address] [place] [address] Physician Digital Project Coordinator Dermatology 10/22/24 Jelena David OD [address] [facility] [place] [address] Assigned Surgical Provider 10/31/24 Fabiano [place] NP [address] [place] [address] Assigned Heart and Vascular Provider 11/30/24 documented as of this encounter
--- OUTSIDE RECORDS SUMMARY | 2024-12-17 21:36 | XMS_ITS | Encounter Summary ---
Author Organization [place] Address [address] [place] [address] Care Team Providers Care Manager Latin Name Role Phone Diana Desir Stanislav [facility] Unavailable Rain Galaviz PA-C Unavailable Tavia Wyatt MD Unavailable Erica Farrell APRN PICKING MACHINE OPERATOR HELPER Unavailable Rich Barrett MD Unavailable [phone] Neil Kent MD Unavailable ThangKendrickDiana Stanislav [facility] Unavailable [phone] Livan Sharif MD Unavailable Catherine Cm MD Unavailable + Valery Veronica-C Unavailable Brea Quinn APRN PICKING MACHINE OPERATOR HELPER Unavailable Esha Grimm PA-C Primary Care Provider Radha Lomeli APRN PICKING MACHINE OPERATOR HELPER Unavailable Jelena David OD Unavailable Esha Grimm PA-C Unavailable [phone] Valery Veronica PA-C Unavailable [phone] Rey Tay MD Unavailable Rocky Zepeda DO Unavailable Philip Dumont MD Unavailable Meredith Carrera-C Unavailable Neil Kent MD Unavailable Juan Pablo Emmanuel MD Unavailable [phone] Audrey Waite PA-C Unavailable Valery Veronica PA-C Unavailable [phone] Herminia Hatch MD Unavailable Jelena David OD Unavailable Juan Pablo Emmanuel MD Unavailable [phone] Maru Man-C Unavailable Maru Man-C Unavailable Jelena David OD Unavailable Reason for Visit * Reason Onset Date Comments Appointment 11/07/2024 Encounter Details Date Type Department Care Team (Late st Contact Info) Description 11/07/2024 Telephone [facility] [address] [address] Meredith Carrera PA-C [address] [place] [address] [phone] Appointment Social History Tobacco Use Types Packs/Day [...] do you attend chur or christian services? 1 to 4 times [...] Recorded PHQ-2 Score 1 10/24/2024 [facility] of Occupat [...] exercise at this level? 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 Gender Identity Female 03/02/2021 5:45 PM [...] date: ~ RTC 03/04 Specialty phone number: [phone] Additional appointment(s) needed: Labs Additonal Notes: Follow up per provider req - 11/07 AA documented in this encounter Plan of Treatment Upcoming Encounters Date Type Department Care Team (Late st Contact Info) Description 12/19/2024 2:00 PM CDT Office Visit [facility] [address] [place] [phone] Lauren Claudio PA-C [address] [place], [place] [phone] 12/26/2024 7:30 AM CDT Office Visit [facility] [address] [phone] Neil Kent MD [address] [place] [address] [phone] 04/16/2025 11:00 AM CDT Virtual Visit [facility] Gastroenterology [facility] [address] [place] [address] 4th [place] [phone] Meredith Carrera PA-C [address] [place] [address] [phone] documented as of this encounter Visit Diagnoses Not on filedocumented in this encounter Additional Health Concerns Assessment Noted Time PHQ-9 Depression Total Score: 5 10/25/19 25 10:38 AM CDT documented as of this encounter Care Teams Manager Latin Relationship Specialty Start Date End Date Esha Grimm PA-C [address] [place] [phone] PCP - General Family Medicine 05/04/23 Diana Desir, [facility] [address] [place] [address] Pharmacist Pharmacist 04/17/21 Rain Galaviz PA-C [address] [place] [address] [address] [place], [place] [address] Physician Purchase Price Analyst Dermatology 04/28/21 Tavia Wyatt MD [address] [place] [address] [address] [place] [address] Dermatology 07/14/21 Erica Farrell APRN PICKING MACHINE OPERATOR HELPER [address] [place] 189075 Nurse Practitioner Cardiovascular Disease 09/09/21 Rich Barrett MD [address] [place] [phone] Physician Ophthalmology 01/21/22 eNil Kent MD 500 [place], [place] 878645 Dermatology 02/24/22 Diana Desir, [facility] 3033 [place], [place] 273436 Assigned MTM Pharmacist 04/07/22 Livan Sharif MD [address] [place] [address] Cardiovascular Disease 05/14/22 Catherine Cm MD [address] [place] [address] Cardiovascular Disease 07/21/22 Valery Veronica PA-C [address] [place] [address] Physician Purchase Price Analyst Dermatology 07/21/22 Brea Quinn APRN PICKING MACHINE OPERATOR HELPER [address] [place] [address] Nurse Practitioner Dermatology 09/21/22 Radha Lomeli APRN PICKING MACHINE OPERATOR HELPER [address] [facility] [address] [place] [address] Assigned Heart and Vascular Provider 05/28/23 11/29/24 Jelena David OD [address] [facility] [address] MD Ophthalmology 06/15/23 Esha Grimm PA-C [address] [place] [phone] Assigned PCP 07/16/23 Valery Veronica PA-C [address] [place] [address] Physician Purchase Price Analyst Dermatology 09/19/23 Rey Tay MD [address] [place] [address] Gastroenterology 09/20/23 Rocky Zepeda DO [address] [place] [address] 507345 Physician Gastroenterology 09/20/23 Philip Dumont MD [address] [place] [address] 025615 Physician Ophthalmology 09/22/23 Meredith Carrera PA-C [address] [place] [address] Assigned Gastroenterology Provider 11/01/23 Neil Kent MD [address] [address] Dermatology 11/02/23 [place] [address] [place] [address] 563307 Neurological Surgery 12/26/23 Audrey Waite PA-C [address] [place] [address] Physician Purchase Price Analyst Dermatology 02/28/24 Valery Veronica PA-C [address] [place] [address] 100089 Physician Purchase Price Analyst Dermatology 04/10/24 Herminia Hatch MD [address] [place] [address] [phone] Assigned Rheumatology Provider 07/02/24 [place] [address] [place] [address] [place] [address] Ophthalmology 08/30/24 [place] [address] [place] [address] Assigned Neuroscience Provider 09/30/24 Maru Man PA-C [address] [place] [address] Physician Purchase Price Analyst Dermatology 10/03/24 Maru Man PA-C [address] [place] [address] Physician Purchase Price Analyst Dermatology 10/22/24 Jelena David OD [address] [place] [address] [place] [address] Assigned Surgical Provider 10/31/24 documented as of this encounter
--- OUTSIDE RECORDS SUMMARY | 2024-12-17 21:36 | XMS_ITS | Encounter Summary ---
Author Organization [place] Address [address] [place] [address] Care Team Providers Care Research Geneticist Name Role Phone Lita Oseguera Unavailable Unavailable Marija Edgar APRN EVALUATION SPECIALIST Primary Care Provider + Chanelle Mccann DISH ROOM WORKER CNM Unavailab le Kyara De La Fuente RN Unavailable [phone] Marija Edgar APRN EVALUATION SPECIALIST Unavailable Mynor Broussard MD Unavailable [phone] Keisha Dotson MD Unavailable Stacey Briones AUTO SERVICE INSTRUCTOR Unavailable [phone] Galo Burrell MD Unavailable Unavailable Lesley Guillermo CHW Unavailable Meredith Bedoya Unavailable Unavailable Cristina Wood Unavailable Diana Desir [facility] Unavailable [phone] Rain Galaviz PA-C Unavailable Summer Lara MD Unavailable [phone] Summer Lara MD Unavailable [phone] Summer Lara MD Unavailable [phone] Tavia Wyatt MD Unavailable Johnny Murillo MD Unavailable [phone] Erica Farrell DISH ROOM WORKER EVALUATION SPECIALIST Unavailable Vikas Teresita Watson [facility] Unavailable Tavia Wyatt MD Unavailable [phone] Diana Desir [facility] Unavailable Rich Barrett MD Unavailable Neil Kent MD Unavailable Roney Story DPM Unavailable Erica Farrell DISH ROOM WORKER EVALUATION SPECIALIST Unavailable Diana Desir [facility] Unavailable Jelena David Unavailable Galo Burrell MD Unavailable Unavailable Livan Sharif MD Unavailable + Livan Sharif MD Unavailable + Catherine Cm MD Unavailable + Valery Veronica PA-C Unavailable [phone] Catherine Cm MD Unavailable + Johnny Murillo MD Unavailable [phone] Brea Quinn DISH ROOM WORKER EVALUATION SPECIALIST Unavailable [phone] Brea Quinn DISH ROOM WORKER EVALUATION SPECIALIST Unavailable [phone] Jose Francisco Johnson MD Unavailable Livan Sharif MD Unavailable Catherine Cm MD Unavailable + Sydnie Martinez RN Unavailable Unavailable Alfonso Renteria MD Unavailable [phone] Alfa, Esha M PA-C Primary Care Provider Perez Chengjc Fish PA-C Unavailable Radha Lomeli APRN EVALUATION SPECIALIST Unavailable Jelena David OD Unavailable Pao Joseph RN Unavailable Unavailable Esha rGimm PA-C Unavailable [phone] Valery Veronica PA-C Unavailable Rey Tay [...] Team (Late st Contact Info) Description 10/24/2020 [facility] [address] [address] Marija Edgar APRN EVALUATION SPECIALIST [address] [place], [place] [phone] Social History Tobacco Use Types Packs/Day Years [...] you attend chur ch or faith services? More than 4 times [...] Answer Date Recorded PHQ-2 Score 3 09/29/2020 [facility] of Occupat ional [...] PM CDT Legal Sex Female 4:13 AM CRIMINAL JUSTICE LAWYER Gender Identity Female 03/02/2021 5:45 PM CDT [...] 11:44 AM CDT Replied to patient via [email or web address]. Anthony Doe PA-C on 10/27/2020 at 11:54 AM documented in this encounter Plan of Treatment Upcoming Encounters Date Type Department Care Team (Late st Contact Info) Description 12/19/2024 2:00 PM CDT Office Visit [facility] [address] [place] [phone] Lauren Claudio PA-C [address] [place] [address] 12/26/2024 7:30 AM CDT Office Visit [facility] [address] [phone] Neil Kent MD [address] [place] [address] 739745 04/16/2025 11:00 AM CDT Virtual Visit [facility] [place] [address] [place] [address] 4th [place] [address] Meredith Carrera PA-C [address] [place] [address] documented as of this encounter Visit Diagnoses Not on filedocumented in this encounter Additional Health Concerns Infection Onset Date Last Indicated Resolved Time Rule Out COVID-19 11/05/2020 11/05/2020 11/06/2020 1:09 PM CDT Rule Out COVID-19 05/11/2021 05/11/2021 05/13/2021 10:18 AM CDT Rule Out COVID-19 07/13/2021 07/13/2021 07/14/2021 3:04 PM CRIMINAL JUSTICE LAWYER Rule Out COVID-19 07/18/2021 07/18/2021 07/20/2021 1:56 PM CRIMINAL JUSTICE LAWYER COVID-19 07/18/2021 07/18/2021 08/08/2021 11:3 9 PM CRIMINAL JUSTICE LAWYER Rule Out COVID-19 12/18/2021 12/18/2021 12/19/2021 11:34 AM CDT Rule Out COVID-19 02/24/2022 02/24/2022 02/25/2022 1:08 PM CDT Rule Out COVID-19 04/26/2022 04/26/2022 04/26/2022 6:47 AM CDT Rule Out COVID-19 05/17/2022 05/17/2022 05/17/2022 10:20 PM CRIMINAL JUSTICE LAWYER Rule Out COVID-19 06/09/2022 06/09/2022 06/09/2022 9:35 AM CRIMINAL JUSTICE LAWYER COVID-19 06/09/2022 06/09/2022 06/30/2022 11:4 1 PM CRIMINAL JUSTICE LAWYER Rule Out COVID-19 11/10/2022 11/10/2022 11/11/2022 12:17 [...] as of this encounter Care Teams Research Geneticist Relationship Specialty Start Date End Date Marija Edgar APRN EVALUATION SPECIALIST PCP - General Nurse Practitioner 04/30/20 04/14/23 Esha Grimm PA-C [address] [place] [phone] PCP - General Family Medicine 05/04/23 Lita Oseguera Personal Advocate & Liaison (PAL) 02/28/20 03/27/23 Chanelle Mccann APRN CNM [address] [place] [address] 200 [place], [place] 652107 Assigned OBGYN Provider 05/02/2005/09 Kyara De La Fuente, RN Specialty Regulatory Affairs Manager Neurology 06/04/20 03/05/21 Marija Edgar APRN EVALUATION SPECIALIST Assigned PCP 06/08/20 04/29/23 Mynor Broussard MD 6[address] [facility] 500 [place] [address] Assigned Surgical Provider 06/01/20 11/28/21 Keisha Dotson MD 909 [place] [address] Assigned Neuroscience Provider 06/04/20 04/01/23 Stacey Briones, [facility] Lead Regulatory Affairs Manager Primary Care - CC 08/11/2012/30 Galo Burrell MD Assigned Heart and Vascular Provider 10/05/20 04/02/22 Lesley Guillermo, [facility] Community Health Worker 10/23/2012/30 Meredith Bedoya Financial Resource Worker 10/23/20 11/23/20 Cristina Wood Financial Resource Worker 02/09/21 02/09/21 Diana Desir, [facility] [address] [place] [address] Pharmacist Pharmacist 04/17/21 Rain Galaviz PA-C [address] [place] [address] [place] [address] Physician Superintendent Operating Dermatology 04/28/21 Summer Lara MD [address] [place] [address] Assigned OBGYN Provider 05/10/2105/23 Summer Lara MD [address] [place] [address] Assigned OBGYN Provider 05/31/21 Summer Lara MD [address] [place] [address] Assigned OBGYN Provider 05/24/2105/30 Tavia Wyatt MD [address] [place] [address] Dermatology 07/14/21 Johnny Murillo MD [address] [place] [address] Assigned Musculoskeletal Provider 08/30/21 03/17/22 Erica Farrell APRN EVALUATION SPECIALIST [address] [facility] [address] [place] [address] Nurse Practitioner Cardiovascular Disease 09/09/21 Teresita Bean, [facility] [address] [place] [phone] Pharmacist Pharmacist 09/24/21 09/29/21 Tavia Wyatt MD [address] [place] [address] Assigned Surgical Provider 11/29/21 05/07/22 Diana Desir, [facility] [address] [place] [address] Assigned MTM Pharmacist 01/02/22 Rich Barrett MD [address]33 [place] [address] Physician Ophthalmology 01/21/22 Neil Kent MD 500 [place] [address] Dermatology 02/24/22 Roney Story DPM [address] [facility] [address] [place], [place] 958777 Assigned Musculoskeletal Provider 03/20/22 08/13/22 Erica Farrell APRN EVALUATION SPECIALIST 1700 [place] [address] Assigned Heart and Vascular Provider 04/03/22 04/16/22 Diana Desir, [facility] [address] [place], [place] 226116 Assigned MTM Pharmacist 04/07/22 Jelena David OD [address] [facility] [place] [place] [address] Assigned Surgical Provider 05/08/22 10/08/22 Galo Burrell MD Assigned Heart and Vascular Provider 04/17/22 06/11/22 Livan Sharif MD [address] [place] [address] Cardiovascular Disease 05/14/22 Livan Sharif MD [address] [place] [address] Assigned Heart and Vascular Provider 06/12/22 07/23/22 Catherine Cm MD [address] [place], [place] 834875 Cardiovascular Disease 07/21/22 Valery Veronica, PA-C [address] [place] [address] Physician Superintendent Operating Dermatology 07/21/22 Catherine Cm MD [address] [facility] [address] [place] [address] [place] [address] Assigned Heart and Vascular Provider 07/24/22 11/05/22 Johnny Murillo MD [address] [place] [address] Assigned Musculoskeletal Provider 08/14/22 10/08/22 Brea Quinn APRN EVALUATION SPECIALIST [address] [place] [address] 659505 Nurse Practitioner Dermatology 09/21/22 Brea Quinn APRN EVALUATION SPECIALIST 6401 [place] [address] Assigned Surgical Provider 10/09/22 05/01/24 [place] [address] [place] [address] Assigned Musculoskeletal Provider 10/09/22 05/01/24 Lvian Sharif MD [address] [facility] [place] [address] Assigned Heart and Vascular Provider 11/06/22 11/12/22 Catherine Cm MD [address] [facility]00 [place] 888875 Assigned Heart and Vascular Provider 11/13/22 05/27/23 Sydnie Martinez RN Personal Advocate & Liaison (PAL) Family Medicine 03/28/23 07/31/23 Alfonso Renteria MD [address] [facility] [address] [place] [address] Assigned Neuroscience Provider 04/02/23 09/29/24 Cheng Todd PA-C [address] [place] [address] Assigned PCP 04/30/23 07/15/23 Radha Lomeli APRN EVALUATION SPECIALIST [address] [facility] [address] [place] [address] Assigned Heart and Vascular Provider 05/28/23 11/29/24 Jelena David OD [address] [facility] [place] [address] Ophthalmology 06/15/23 Pao Joseph, VJ Personal Advocate & Liaison (PAL) Nurse 08/01/23 11/07/23 Esha Grimm PA-C [address] [place] [phone] Assigned PCP 07/16/23 Valery Veronica PA-C [address] [place] [address] 625565 Physician Superintendent Operating Dermatology 09/19/23 Rey Tay MD [address] [place] [address] Gastroenterology 09/20/23 Rocky Zepeda DO [address] [place] [address] Physician Gastroenterology 09/20/23 Philip Dumont MD 6 [place] [address] Physician Ophthalmology 09/22/23 Meredith Carrera PA-C [address] [place] [address] Assigned Gastroenterology Provider 11/01/23 Neil Kent MD [address] [place] [address] MD Dermatology 11/02/23 Juan [place] [address] [place] [address] [facility] [place] [address] Neurological Surgery 12/26/23 Audrey Waite PA-C [address] [place] [address] Physician Superintendent Operating Dermatology 02/28/24 Valery Veronica PA-C 092060 [address], [place] [address] Physician Superintendent Operating Dermatology 04/10/24 Herminia Hatch MD [address] [place] [address] [id number] Assigned Rheumatology Provider 07/02/24 [place] [address] [place] [address] [place] [address] Ophthalmology 08/30/24 [place] [address] [place] [address] Assigned Neuroscience Provider 09/30/24 Maru Man PA-C [address] [place] [address] Physician Superintendent Operating Dermatology 10/03/24 Maru Man PA-C [address] [place] [address] Physician Superintendent Operating Dermatology 10/22/24 Jelena David OD [address] [facility] [place] [address] Assigned Surgical Provider 10/31/24 Fabiano [place] NP [address] [place] [address] Assigned Heart and Vascular Provider 11/30/24 documented as of this encounter
--- OUTSIDE RECORDS SUMMARY | 2024-12-17 21:36 | XMS_ITS | Encounter Summary ---
Author Organization [facility] Address [address] [place] [address] Care Team Providers Care Stain Dipper Name Role Phone Lita Oseguera Unavailable Unavailable Marija Edgar APRN THEATRE PROGRAM DIRECTOR Primary Care Provider + Chanelle Mccann APRN CNM Unavailab le Kyara De La Fuente RN Unavailable [phone] Marija Edgar APRN THEATRE PROGRAM DIRECTOR Unavailable Mynor Broussard MD Unavailable [phone] Keisha Dotson MD Unavailable [phone] Galo Burrell MD Unavailable Unavailable Cristina Wood Unavailable Diana Desir [facility] Unavailable Rain Galaviz PA-C Unavailable Summer Lara MD Unavailable Summer Lara MD Unavailable [phone] Summer Lara MD Unavailable [phone] Tavia Wyatt MD Unavailable Johnny Murillo MD Unavailable Erica Farrell APRN THEATRE PROGRAM DIRECTOR Unavailable VikasTeresita [facility] Unavailable Tavia Wyatt MD Unavailable Diana Desir [facility] Unavailable Rich Barrett MD Unavailable [phone] Neil [place] MD Unavailable Roney Story DP Unavailable Erica Farrell APRN THEATRE PROGRAM DIRECTOR Unavailable Daina Desir [facility] Unavailable Jelena David Unavailable Galo Burrell MD Unavailable Unavailable Livan Sharif MD Unavailable Livan Sharif MD Unavailable Catherine Cm MD Unavailable + Valery Veronica-C Unavailable [phone] Catherine Cm MD Unavailable + Johnny Murillo MD Unavailable [phone] Brea Quinn [employer] THEATRE PROGRAM DIRECTOR Unavailable [phone] Brea Quinn [employer] THEATRE PROGRAM DIRECTOR Unavailable [phone] Jose Francisco Johnson MD Unavailable Livan Sharif MD Unavailable Catherine Cm MD Unavailable + Sydnie Martinez RN Unavailable Unavailable Alfonso Renteria MD Unavailable Esah Grimm PA-C Primary Care Provider Cheng Todd PA-C Unavailable Radha Lomeli [employer] THEATRE PROGRAM DIRECTOR Unavailable Jelena David OD Unavailable [phone] Pao Joseph RN Unavailable Unavailable AlfaJesusEsha M PA-C Unavailable [phone] Valery Veronica PA-C Unavailable Rey Tay MD Unavailable Rocky Zepeda DO Unavailable Philip Dumont MD Unavailable Meredith Carrera PA-C Unavailable Neil [place] MD Unavailable Juan Pablo Emmanuel MD Unavailable Audrey Waite PA-C Unavailable Valery Veronica PA-C Unavailable Herminia Hatch MD Unavailable Jelena David OD Unavailable [phone] Juan Pablo Emmanuel MD Unavailable Maru Man PA-C Unavailable Maru Man PA-C Unavailable Jelena David OD Unavailable [phone] Fabiano Correa NP Unavailable Encounter Details Date Type Department Care Team (Late st Contact Info) Description 01/02/2021 MyC Medical Advice [address] [address] Kierra Eller Social History Tobacco [...] attend [facility] or zoroastrian services? More than 4 times [...] Answer Date Recorded PHQ-2 Score 3 09/29/2020 [facility] of Occupat ional [...] PM CDT Legal Sex Female 4:13 AM CLERK TELEGRAPH SERVICE Gender Identity Female 03/02/2021 5:45 PM CDT [...] PM CDT Office Visit [facility] [address] [place] [phone] Lauren Claudio PA-C [id number] [place] [address] 12/26/2024 7:30 AM CDT Office Visit [facility] [address] [phone] Neil [place] MD [address] [place] [address] [phone] 04/16/2025 11:00 AM CDT Virtual Visit [facility] [place] [address] [place] [address] 4th [place] [phone] Meredith Carrera PA-C [address] [place] [address] documented as of this encounter Visit Diagnoses Not on filedocumented in this encounter Additional Health Concerns Infection Onset Date Last Indicated Resolved Time Rule Out COVID-19 05/11/2021 05/11/2021 05/13/2021 10:18 AM CDT Rule Out COVID-19 07/13/2021 07/13/2021 07/14/2021 3:04 PM CLERK TELEGRAPH SERVICE Rule Out COVID-19 07/18/2021 07/18/2021 07/20/2021 1:56 PM CLERK TELEGRAPH SERVICE COVID-19 07/18/2021 07/18/2021 08/08/2021 11:3 9 PM CLERK TELEGRAPH SERVICE Rule Out COVID-19 12/18/2021 12/18/2021 12/19/2021 11:34 AM CDT Rule Out COVID-19 02/24/2022 02/24/2022 02/25/2022 1:08 PM CDT Rule Out COVID-19 04/26/2022 04/26/202204/26/2022 6:47 AM CDT Rule Out COVID-19 05/17/2022 05/17/2022 05/17/2022 10:20 PM CLERK TELEGRAPH SERVICE Rule Out COVID-19 06/09/2022 06/09/2022 06/09/2022 9:35 AM CLERK TELEGRAPH SERVICE COVID-19 06/09/2022 06/09/2022 06/30/2022 11:4 1 PM CLERK TELEGRAPH SERVICE Rule Out COVID-19 11/10/2022 11/10/2022 11/11/2022 [...] as of this encounter Care Teams Stain Dipper Relationship Specialty Start Date End Date Marija Edgar APRN CNP PCP - General Nurse Practitioner 04/30/20 04/14/23 Esha Grimm PA-C [address] [place] [address] PCP - General Family Medicine 05/04/23 Lita Oseguera Personal Advocate & Liaison (PAL) 02/28/20 03/27/23 Chanelle Mccann APRN CNM [address] [facility] 200 [place] [address] Assigned OBGYN Provider 05/02/2005/09 Kyara De La Fuente, RN Specialty Easter Bunny Neurology 06/04/20 03/05/21 Marija Edgar APRN THEATRE PROGRAM DIRECTOR Assigned PCP 06/08/20 04/29/23 Mynor Broussard MD 6363 [facility] 500 [place] [address] Assigned Surgical Provider 06/01/20 11/28/21 Keisha Dotson MD 909 [place], [place] 877845 Assigned Neuroscience Provider 06/04/20 04/01/23 Galo Burrell MD Assigned Heart and Vascular Provider 10/05/20 04/02/22 Cristina Wood Financial Resource Worker 02/09/21 02/09/21 Diana Desir, [facility] [address] [place] [address] Pharmacist Pharmacist 04/17/21 Rain Galaviz PA-C [address] [facility] [address] [place] [address] Physician Field Worker Dermatology 04/28/21 Summer Lara MD [address] [place] [address] Assigned OBGYN Provider 05/10/2105/23 Summer Lara MD [address] [place] [address] Assigned OBGYN Provider 05/31/21 Summer Lara MD [address] [place] [address] Assigned OBGYN Provider 05/24/2105/30 Tavia Wyatt MD [address] [place] [address] Dermatology 07/14/21 Johnny Murillo MD [address] [place] [address] Assigned Musculoskeletal Provider 08/30/21 03/17/22 Erica Farrell APRN THEATRE PROGRAM DIRECTOR [address] [facility] [address] [place] [address] Nurse Practitioner Cardiovascular Disease 09/09/21 Teresita Bean [facility] [address] [place] [address] Pharmacist Pharmacist 09/24/21 09/29/21 Tavia Wyatt MD [address] [place] [address] Assigned Surgical Provider 11/29/21 05/07/22 Diana Desir, [facility] [address] [place] [address] Assigned MTM Pharmacist 01/02/22 Rich Barrett MD [address] [place] [address] Physician Ophthalmology 01/21/22 Neil Kent MD 500 [place], [place] 976205 Dermatology 02/24/22 Roney Story DPM [address] [facility] [address] [place], [place] [address] Assigned Musculoskeletal Provider 03/20/22 08/13/22 Erica Farrell APRN THEATRE PROGRAM DIRECTOR 1700 [place] [address] Assigned Heart and Vascular Provider 04/03/22 04/16/22 Diana Desir, [facility] [address] [place] [address] Assigned MTM Pharmacist 04/07/22 Jelena David OD 3[address] [facility] [place] [address] Assigned Surgical Provider 05/08/22 10/08/22 Galo Burrell MD Assigned Heart and Vascular Provider 04/17/22 06/11/22 Livan Sharif MD 6405 [facility] [address] [place] [address] Cardiovascular Disease 05/14/22 Livan Sharif MD 6405 [facility] [address] [place] [address] Assigned Heart and Vascular Provider 06/12/22 07/23/22 Catherine Cm MD 6[address] [facility] [address] [place] [address] Cardiovascular Disease 07/21/22 Valery Veronica, PA-C [address] [place] [address] Physician Field Worker Dermatology 07/21/22 Catherine Cm MD [address] [place] 4064800 [place] [address] Assigned Heart and Vascular Provider 07/24/22 11/05/22 Johnny Murillo MD [address] [place] [address] Assigned Musculoskeletal Provider 08/14/22 10/08/22 Brea Quinn APRN THEATRE PROGRAM DIRECTOR [address] [place] [address] Nurse Practitioner Dermatology 09/21/22 Brea Quinn APRN THEATRE PROGRAM DIRECTOR [address] [place] [address] [place] [address] Assigned Surgical Provider 10/09/22 05/01/24 [place] [address] [place] [address] Assigned Musculoskeletal Provider 10/09/22 05/01/24 Livan Sharif MD [address] [place] [address] [place] [address] Assigned Heart and Vascular Provider 11/06/22 11/12/22 Catherine Cm MD [address] [place] [address] [place] [address] Assigned Heart and Vascular Provider 11/13/22 05/27/23 Sydnie Martinez RN Personal Advocate & Liaison (PAL) Family Medicine 03/28/23 07/31/23 Alfonso Renteria MD 5775 [facility] 200 [place] [address] Assigned Neuroscience Provider 04/02/23 09/29/24 Cheng Todd PA-C [address] [place] [address] Assigned PCP 04/30/23 07/15/23 Radha Lmoeli, ARLENE THEATRE PROGRAM DIRECTOR [address] [place] [address] Assigned Heart and Vascular Provider 05/28/23 11/29/24 Jelena David OD [address] [place] [address] [place] [address] Ophthalmology 06/15/23 Pao Joseph, VJ Personal Advocate & Liaison (PAL) Nurse 08/01/23 11/07/23 Esha Grimm PA-C [address] [place] [address] Assigned PCP 07/16/23 Valery Veronica PA-C [address] [place] [address] 188905 Physician Field Worker Dermatology 09/19/23 Rey Tay MD [address] [place] [address] 368315 MD Gastroenterology 09/20/23 Rocky Zepeda DO [address] [place] [address] 627205 Physician Gastroenterology 09/20/23 Philip Dumont MD [address] [place] [address] 192115 Physician Ophthalmology 09/22/23 Meredith Carrera PA-C [address] [place] [address] Assigned Gastroenterology Provider 11/01/23 Neil Kent MD [address] [address] Dermatology 11/02/23 [place] [address] [address] [facility] [place] [address] Neurological Surgery 12/26/23 Audrey Waite PA-C [address] [place] [address] Physician Field Worker Dermatology 02/28/24 Valery Veronica PA-C 674832 [facility] [place] [address] Physician Field Worker Dermatology 04/10/24 Herminia Hatch MD [address] [place] [address] Assigned Rheumatology Provider 07/02/24 Jelena David OD [address] [place] [address] [place] [address] MD Ophthalmology 08/30/24 [place] [address] [place] [address] Assigned Neuroscience Provider 09/30/24 Maru Man PA-C [address] [place] [address] Physician Field Worker Dermatology 10/03/24 Maru Man PA-C [address] [place] [address] Physician Field Worker Dermatology 10/22/24 Jelena David OD [address] [place] [address] [place] [address] Assigned Surgical Provider 10/31/24 Fabiano Correa NP [address] [place] [address] Assigned Heart and Vascular Provider 11/30/24 documented as of this encounter
--- OUTSIDE RECORDS SUMMARY | 2024-12-17 21:37 | XMS_ITS | Encounter Summary ---
Author Organization [facility] Address [address] [place] [address] Care Team Providers Care Torch Cutter Name Role Phone Lita Oseguera Unavailable Unavailable Marija Edgar APRN ASPHALT MACHINE OPERATOR Primary Care Provider + Marija Edgar APRN ASPHALT MACHINE OPERATOR Unavailable [phone] Keisha Dotson MD Unavailable Galo Burrell MD Unavailable Unavailable Diana Desir [facility] Unavailable Rain Galaviz PA-C Unavailable Summer Lara MD Unavailable [phone] Tavia Wyatt MD Unavailable Johnny Murillo MD Unavailable [phone] Erica Farrell APRN ASPHALT MACHINE OPERATOR Unavailable Tavia Wyatt MD Unavailable Diana Desir [facility] Unavailable Rich Barrett MD Unavailable [phone] Neil Kent MD Unavailable Roney Story DPM Unavailable Erica Farrell APRN ASPHALT MACHINE OPERATOR Unavailable Diana Desir [facility] Unavailable [phone] Jelena David OD Unavailable [phone] Galo Burrell MD Unavailable Unavailable HoLivan MD Unavailable Livan Sharif MD Unavailable IsCatherine hobbs MD Unavailable + Valery Veronica PA-C Unavailable [phone] Catherine Cm MD Unavailable + Johnny Murillo MD Unavailable [phone] Brea Quinn HEDGE [employer]D TRADER ASPHALT MACHINE OPERATOR Unavailable [phone] Brea Quinn [employer]EDGE [employer]D TRADER ASPHALT MACHINE OPERATOR Unavailable [phone] Jose Francisco Johnson MD Unavailable Livan Sharif MD Unavailable + IsCatherine boothe MD Unavailable + Sydnie Martinez RN Unavailable Unavailable Alfonso Renteria MD Unavailable Esha Grimm PA-C Primary Care Provider Cheng Todd PA-C Unavailable Radha Lomeli HEDGE [employer]D TRADER ASPHALT MACHINE OPERATOR Unavailable [phone] Jelena David OD Unavailable Pao Joseph RN Unavailable Unavailable Esha Grimm PA-C Unavailable [phone] Valery Veronica PA-C Unavailable [phone] Rey Tay MD Unavailable Rocky Zepeda DO Unavailable Philip Dumont MD Unavailable [phone] Meredith Carrera PA-C Unavailable [phone] Neil Kent MD Unavailable Juan Pablo Emmanuel MD Unavailable [phone] Audrey WaiteC Unavailable [phone] Valery VeronicaC Unavailable Herminia Hatch MD Unavailable Jelena David OD Unavailable Juan Pablo Emmanuel MD Unavailable [phone] Maru Man PA-C Unavailable [phone] Maru Man PA-C Unavailable [phone] Jelena David OD Unavailable Fabiano Correa NP Unavailable [phone] Encounter Details Date Type Department Care Team (Late st Contact Info) Description 01/22/2022 MyC Medical Advice [address] [address] [address] Social History Tobacco Use Types Packs/Day Years [...] How often do you attend taoist or judaism serv ices? Never 09/22/2021 Do [...] Answer Date Recorded PHQ-2 Score 2 12/18/2021 [facility] of Occupat ional [...] in a mcfp (including now)? No 09/22/2021 [place] Depression Scale Answer Date Recorded [place] [...] CDT Legal Sex Female 4:13 AM COTTON BAG CLIPPER Gender Identity Female 03/02/2021 5:45 PM CDT [...] Description 12/19/2024 2:00 PM CDT Office Visit [facility] [address] [place] [phone] Lauren Claudio PA-C [address] [place] [address] 12/26/2024 7:30 AM CDT Office Visit [facility] [address] [phone] Neil Kent MD [address] [place] [address] 04/16/2025 11:00 AM CDT Virtual Visit [facility] [place] 909 [facility] 4th [place] [phone] Meredith Carrera PA-C [address] [place] [address] documented as of this encounter Visit Diagnoses Not on filedocumented in this encounter Additional Health Concerns Infection Onset Date Last Indicated Resolved Time Rule Out COVID-19 02/24/2022 02/24/2022 02/25/2022 1:08 PM CDT Rule Out COVID-19 04/26/2022 04/26/2022 04/26/2022 6:47 AM CDT Rule Out COVID-19 05/17/2022 05/17/2022 05/17/2022 10:20 PM COTTON BAG CLIPPER Rule Out COVID-19 06/09/2022 06/09/2022 06/09/2022 9:35 AM COTTON BAG CLIPPER COVID-19 06/09/2022 06/09/2022 06/30/2022 11:4 1 PM COTTON BAG CLIPPER Rule Out COVID-19 11/10/2022 11/10/2022 11/11/2022 12:17 [...] documented as of this encounter Care Teams Torch Cutter Relationship Specialty Start Date End Date Marija Edgar APRN ASPHALT MACHINE OPERATOR PCP - General Nurse Practitioner 04/30/20 04/14/23 Esha Grimm PA-C [address] [place] [phone] PCP - General Family Medicine 05/04/23 Lita Oseguera Personal Advocate & Liaison (PAL) 02/28/20 03/27/23 Marija Edgar APRN ASPHALT MACHINE OPERATOR Assigned PCP 06/08/20 04/29/23 Keisha Dotson MD 909 [place], [place] 716045 Assigned Neuroscience Provider 06/04/20 04/01/23 Galo Burrell MD Assigned Heart and Vascular Provider 10/05/20 04/02/22 Diana Desir, [facility] 3033 [place], [place] 496236 Pharmacist Pharmacist 04/17/21 Rain Galaviz PA-C [address] [place] [address] [place] [address] Physician Sales Solutions Representative Dermatology 04/28/21 Summer Lara MD [address] [facility] [place], [place] 734914 Assigned OBGYN Provider 05/31/21 Tavia Wyatt MD [address] [facility] [place], [place] 7467[address] Dermatology 07/14/21 Johnny Murillo MD [address] [place], [place] 626064 Assigned Musculoskeletal Provider 08/30/21 03/17/22 Erica Farrell APRN ASPHALT MACHINE OPERATOR 6[address] [facility] [address] [place], [place] 668545 Nurse Practitioner Cardiovascular Disease 09/09/21 Tavia Wyatt MD [address] [place], [place] 318340 Assigned Surgical Provider 11/29/21 05/07/22 Diana Desir, [facility] [address] [place] [address] Assigned MTM Pharmacist 01/02/22 Rich Barrett MD [address] [place] [address] Physician Ophthalmology 01/21/22 Neil Kent MD 500 [place] [address] Dermatology 02/24/22 [place] [address] [facility] [address] [place] [address] Assigned Musculoskeletal Provider 03/20/22 08/13/22 Erica Farrell APRN ASPHALT MACHINE OPERATOR 1700 [place] [address] Assigned Heart and Vascular Provider 04/03/22 04/16/22 Diana Desir, [facility] [address] [place] [address] Assigned MTM Pharmacist 04/07/22 Jelena David OD [address] [place] [address] Assigned Surgical Provider 05/08/22 10/08/22 Galo Burrell MD Assigned Heart and Vascular Provider 04/17/22 06/11/22 Livan Sharif MD [address] [place] [address] Cardiovascular Disease 05/14/22 Livan Sharif MD [address] [place] [address] [place] [address] Assigned Heart and Vascular Provider 06/12/22 07/23/22 Catherine Cm MD [address] [place] [address] [place] [address] Cardiovascular Disease 07/21/22 Valery Veronica PA-C [address] [place] [address] Physician Sales Solutions Representative Dermatology 07/21/22 Catherine Cm MD 6405 [facility] [address] [place] [address] Assigned Heart and Vascular Provider 07/24/22 11/05/22 Johnny Murillo MD [address] [place] [address] Assigned Musculoskeletal Provider 08/14/22 10/08/22 Brea Quinn APRN ASPHALT MACHINE OPERATOR [address] [place] [address] 259605 Nurse Practitioner Dermatology 09/21/22 Brea Quinn APRN ASPHALT MACHINE OPERATOR [address] [place] [address] Assigned Surgical Provider 10/09/22 05/01/24 [place] [address] [place] [address] Assigned Musculoskeletal Provider 10/09/22 05/01/24 Livan Sharif MD 6405 [facility] [address] [place] [address] Assigned Heart and Vascular Provider 11/06/22 11/12/22 Catherine Cm MD [address] [place] [address] [place] [address] Assigned Heart and Vascular Provider 11/13/22 05/27/23 Sydnie Martinez RN Personal Advocate & Liaison (PAL) Family Medicine 03/28/23 07/31/23 Alfonso Renteria MD 5775 [facility] 200 [place] [address] Assigned Neuroscience Provider 04/02/23 09/29/24 Cheng Todd PA-C [address] [place] [address] [id number] Assigned PCP 04/30/23 07/15/23 Radha Lomeli APRN ASPHALT MACHINE OPERATOR [address] [place] [address] Assigned Heart and Vascular Provider 05/28/23 11/29/24 Jelena David OD [address] [place] [address] Ophthalmology 06/15/23 Pao Joseph, VJ Personal Advocate & Liaison (PAL) Nurse 08/01/23 11/07/23 Esha Grimm PA-C [address] [place] [address] Assigned PCP 07/16/23 Valery Veronica PA-C 909 [place], [place] 873875 Physician Sales Solutions Representative Dermatology 09/19/23 Rey Tay MD [address] [place] [address] Gastroenterology 09/20/23 Rocky Zepeda DO [address] [place] [address] Physician Gastroenterology 09/20/23 Philip Dumont MD [address] [place] [address] Physician Ophthalmology 09/22/23 Meredith Carrera PA-C [address] [place] [address] Assigned Gastroenterology Provider 11/01/23 Neil Kent MD [address] [address] Dermatology 11/02/23 [place] [address] [place] [facility] [place] [address] Neurological Surgery 12/26/23 Audrey Waite PA-C 500 [place] [address] Physician Sales Solutions Representative Dermatology 02/28/24 Valery Veronica PA-C 589598 [place], [place] [address] Physician Sales Solutions Representative Dermatology 04/10/24 Herminia Hatch MD [address] [place] [address] Assigned Rheumatology Provider 07/02/24 Jelena David OD [address] [facility] [place] [address] Ophthalmology 08/30/24 [place] [address] [place] [place] [address] Assigned Neuroscience Provider 09/30/24 Maru Man PA-C [address] [place] [address] Physician Sales Solutions Representative Dermatology 10/03/24 Maru Man PA-C [address] [place] [address] Physician Sales Solutions Representative Dermatology 10/22/24 Jelena David OD [address] [facility] [place] [address] Assigned Surgical Provider 10/31/24 Fabiano Correa NP [address] [place] [address] Assigned Heart and Vascular Provider 11/30/24 documented as of this encounter
--- OUTSIDE RECORDS SUMMARY | 2024-12-17 21:37 | XMS_ITS | Encounter Summary ---
Author Organization [facility] Address [address] [place] [address] Care Team Providers Care Turning Sander Operator Name Role Phone Lita Oseguera Unavailable Unavailable Marija Edgar APRN FIBERGLASS FABRICATOR Primary Care Provider + Chanelle Mccann APRN CNM Unavailab le Kyara De La Fuente RN Unavailable [phone] Marija Edgar APRN FIBERGLASS FABRICATOR Unavailable [phone] Mynor Broussard MD Unavailable [phone] Keisha Dotson MD Unavailable Stacey Briones BIOINFORMATICS ASSOCIATE Unavailable Lesley Guillermo CHW Unavailable Mary Mejia Unavailable Unavailable Lita Oseguera Unavailable Unavailable Galo Burrell MD Unavailable Unavailable Cristina Wood Unavailable Lesley Guillermo CHW Unavailable Meredith Bedoya Unavailable Unavailable Cristina Wood Unavailable Diana Desir [facility] Unavailable Rain Galaviz PA-C Unavailable [phone] Summer Lara MD Unavailable [phone] Summer Lara MD Unavailable [phone] Summer Lara MD Unavailable [phone] Tavia Wyatt MD Unavailable [phone] Johnny Murillo MD Unavailable [phone] Erica Farrell PARTS SALESMAN FIBERGLASS FABRICATOR Unavailable Vikas Teresitakaren Watson [facility] Unavailable Tavia Wyatt MD Unavailable [phone] Diana Desir [facility] Unavailable [phone] Rich Barrett MD Unavailable Neil Kent MD Unavailable Roney StoryM Unavailable Erica Farrell PARTS SALESMAN FIBERGLASS FABRICATOR Unavailable Diana Desir [facility] Unavailable [phone] Jelena David OD Unavailable Galo Burrell MD Unavailable Unavailable Livan Sharif MD Unavailable Livan Sharif MD Unavailable Catherine Cm MD Unavailable + Valery Veronica PA-C Unavailable [phone] Catherine Cm MD Unavailable + Johnny Murillo MD Unavailable +[phone] Brea Quinn APRN FIBERGLASS FABRICATOR Unavailable [phone] Brea Quinn APRN FIBERGLASS FABRICATOR Unavailable [phone] Jose Francisco Johnson MD Unavailable Livan Sharif MD Unavailable + Catherine Cm MD Unavailable + Sydnie Martinez RN Unavailable Unavailable Alfonso Renteria MD Unavailable [phone] Esha Grimm PA-C Primary Care Provider Perez Chengjc Fish PA-C Unavailable Armani Radha Stovall ARLENE GRANADOS Unavailable Jelena David OD Unavailable Pao Joseph RN Unavailable Unavailable Esha Grimm PA-C Unavailable [phone] Valery Veronica PA-C Unavailable Rey Tay [...] Team (Late st Contact Info) Description 09/02/2020 [facility] [address] [place] [address] Mary Mejia Social History Tobacco Use Types [...] do you attend chur or sikh services? More than 4 times [...] Answer Date Recorded PHQ-2 Score 0 08/12/2020 [facility] [...] PM CDT Legal Sex Female 4:13 AM MUSIC CATALOGUER Gender Identity Female 03/02/2021 5:45 PM CDT Sexual Orientation Straight 02/28/2020 12 :51 AM CDT COVID-19 Exposure Response Date Recorded In the last month, have you been in contact with someone who was confirmed or suspected to have Coronavirus / COVID-19? No / Unsure 09/05/2020 2:50 PM MUSIC CATALOGUER documented as of this encounter Plan of Treatment Upcoming Encounters Date Type Department Care Team (Late st Contact Info) Description 12/19/2024 2:00 PM CDT Office Visit [facility] [id number] [place] [phone] Lauren Claudio PA-C [id number] [place] [address] 12/26/2024 7:30 AM CDT Office Visit [facility] [address] [phone] Neil Kent MD [address] [place] [address] 240325 04/16/2025 11:00 AM CDT Virtual Visit [facility] [place] [address] [facility] [address] [place] [phone] Meredith Carrera PA-C [address] [place] [address] [phone] documented as of this encounter Visit Diagnoses Not on filedocumented in this encounter Additional Health Concerns Infection Onset Date Last Indicated Resolved Time Rule Out COVID-19 09/24/2020 09/24/2020 09/24/2020 9:24 AM CDT Rule Out COVID-19 11/05/2020 11/05/2020 11/06/2020 1:09 PM CDT Rule Out COVID-19 05/11/2021 05/11/2021 05/13/2021 10:18 AM CDT Rule Out COVID-19 07/13/2021 07/13/2021 07/14/2021 3:04 PM MUSIC CATALOGUER Rule Out COVID-19 07/18/2021 07/18/2021 07/20/2021 1:56 PM MUSIC CATALOGUER COVID-19 07/18/2021 07/18/2021 08/08/2021 11:3 9 PM MUSIC CATALOGUER Rule Out COVID-19 12/18/2021 12/18/2021 12/19/2021 11:34 AM CDT Rule Out COVID-19 02/24/2022 02/24/2022 02/25/2022 1:08 PM CDT Rule Out COVID-19 04/26/2022 04/26/2022 04/26/2022 6:47 AM CDT Rule Out COVID-19 05/17/2022 05/17/2022 05/17/2022 10:20 PM MUSIC CATALOGUER Rule Out COVID-19 06/09/2022 06/09/2022 06/09/2022 9:35 AM MUSIC CATALOGUER COVID-19 06/09/2022 06/09/2022 06/30/2022 11:4 1 PM MUSIC CATALOGUER Rule Out COVID-19 11/10/2022 11/10/2022 11/11/2022 12:17 [...] Total Score: 9 06/25/20 20 7:04 AM MUSIC CATALOGUER documented as of this encounter Care Teams Turning Sander Operator Relationship Specialty Start Date End Date Marija Edgar APRN FIBERGLASS FABRICATOR PCP - General Nurse Practitioner 04/30/20 04/14/23 Esha Grimm PA-C [address] [place] [phone] PCP - General Family Medicine 05/04/23 Lita Oseguera Personal Advocate & Liaison (PAL) 02/28/20 03/27/23 Chanelle Mccann APRN CNM [id number] [facility] [address] [place] [address] Assigned OBGYN Provider 05/02/2005/09 Kyara De La Fuente, RN [employer] Delivery Driver Neurology 06/04/20 03/05/21 Marija Edgar APRN FIBERGLASS FABRICATOR Assigned PCP 06/08/20 04/29/23 Mynor Broussard MD [address] [facility] [address] [place], [place] [phone] Assigned Surgical Provider 06/01/20 11/28/21 Keisha Dotson MD [address] [place], [place] [address]925 Assigned Neuroscience Provider 06/04/20 04/01/23 Stacey Briones, BIOINFORMATICS ASSOCIATE [employer] Delivery Driver Primary Care - CC 08/11/2012/30 Lesley Guillermo, [facility] Community Health Worker 08/11/2010/01 Jackie Mary Financial Resource Worker 09/02/20 10/06/20 Lita Oseguera Personal Advocate & Liaison (PAL) Family Medicine 09/10/20 09/21/20 Galo Burrell MD Assigned Heart and Vascular Provider 10/05/20 04/02/22 Cristina Wood Financial Resource Worker 10/07/20 10/14/20 Lesley Guillermo, [facility] Community Health Worker 10/23/2012/30 Meredith Bedoya Financial Resource Worker 10/23/20 11/23/20 Cristina Wood Financial Resource Worker 02/09/21 02/09/21 Diana Desir, [facility] [address] [place] [address] Pharmacist Pharmacist 04/17/21 Rain Galaviz PA-C [address] [place] [address] [address] [place], [place] [phone] Physician Business Banking Officer Dermatology 04/28/21 Summer Lara MD [address] [place] [address] [phone] Assigned OBGYN Provider 05/10/2105/23 Summer Lara MD [address] [place] [address] [phone] Assigned OBGYN Provider 05/31/21 2 Summer Lara MD [address] [place] [address] Assigned OBGYN Provider 05/24/2105/30 Tavia Wyatt MD [address] [place] [address] Dermatology 07/14/21 Johnny Murillo MD [address] [place] [address] Assigned Musculoskeletal Provider 08/30/21 03/17/22 Erica Farrell APRN FIBERGLASS FABRICATOR [address] [facility] [address] [place], [place] [phone] Nurse Practitioner Cardiovascular Disease 09/09/21 [facility] [address] [place] [place], [place] [phone] Pharmacist Pharmacist 09/24/21 09/29/21 Tavia Wyatt MD [address] [place] [address] Assigned Surgical Provider 11/29/21 05/07/22 [facility] [address] [place] [address] Assigned MTM Pharmacist 01/02/22 Rich Barrett MD [address] [place] [address] Physician Ophthalmology 01/21/22 Neil Kent MD [address] [place] [address] Dermatology 02/24/22 Roney Story DPM [address] [facility] [address] [place] [address] Assigned Musculoskeletal Provider 03/20/22 08/13/22 Erica Farrell APRN FIBERGLASS FABRICATOR [address] [place] [address] Assigned Heart and Vascular Provider 04/03/22 04/16/22 Diana Desir, [facility] [address] [place] [address] Assigned MTM Pharmacist 04/07/22 Jelena David OD [address] [facility] [id number] Assigned Surgical Provider 05/08/22 10/08/22 Galo Burrell MD Assigned Heart and Vascular Provider 04/17/22 06/11/22 Livan Sharif MD [address] [place] [address] Cardiovascular Disease 05/14/22 Livan Sharif MD [address] [place] [address] Assigned Heart and Vascular Provider 06/12/22 07/23/22 Catherine Cm MD [address] [place] [phone] Cardiovascular Disease 07/21/22 Valery Veronica PA-C [address] [place], [place] [address] Physician Business Banking Officer Dermatology 07/21/22 Catherine Cm MD [address] [place] [place] [phone] [place] [id number] Assigned Heart and Vascular Provider 07/24/22 11/05/22 Johnny Murillo MD [address] [place] [address] Assigned Musculoskeletal Provider 08/14/22 10/08/22 Brea Quinn APRN FIBERGLASS FABRICATOR [address] [place] [address] Nurse Practitioner Dermatology 09/21/22 Brea Quinn APRN FIBERGLASS FABRICATOR [address] [place] [address] Assigned Surgical Provider 10/09/22 05/01/24 [place] [address] [address] Assigned Musculoskeletal Provider 10/09/22 05/01/24 Livan Sharif MD [address] [facility] [place] [address] Assigned Heart and Vascular Provider 11/06/22 11/12/22 Catherine Cm MD [address] [place] [id number] Assigned Heart and Vascular Provider 11/13/22 05/27/23 Sydnie Martinez RN Personal Advocate & Liaison (PAL) Family Medicine 03/28/23 07/31/23 Alfonso Renteria MD [address] [facility] [address] [place] [address] Assigned Neuroscience Provider 04/02/23 09/29/24 Cheng Todd PA-C [address] [place] [address] [phone] Assigned PCP 04/30/23 07/15/23 Radha Lomeli APRN FIBERGLASS FABRICATOR [address] [place] [address] Assigned Heart and Vascular Provider 05/28/23 11/29/24 Jelena David OD [facility] [facility] [address] Ophthalmology 06/15/23 Pao Joseph RN Personal Advocate & Liaison (PAL) Nurse 08/01/23 11/07/23 Esha Grimm PA-C [address] [place] [phone] Assigned PCP 07/16/23 Valery Veronica PA-C [address] [place] [address] Physician Business Banking Officer Dermatology 09/19/23 Rey Tay MD [address] [place] [address] MD Gastroenterology 09/20/23 Rocky Zepeda DO [address] [place] [address] Physician Gastroenterology 09/20/23 Philip Dumont MD [address] [place] [address] Physician Ophthalmology 09/22/23 Meredith Carrera PA-C [address] [place] [address] Assigned Gastroenterology Provider 11/01/23 Neil Kent MD [address] [place] [address] Dermatology 11/02/23 [place] [address] [place] [address] [address] Neurological Surgery 12/26/23 Audrey Waite PA-C [address] [place] [address] Physician Business Banking Officer Dermatology 02/28/24 Valery Veronica PA-C [id number] [address] [place] [address] Physician Business Banking Officer Dermatology 04/10/24 Herminia Hatch MD [address] [place] [address] Assigned Rheumatology Provider 07/02/24 Jelena David, [place] [address] [facility] [place] [address] Ophthalmology 08/30/24 [place] [address] [place] [address] Assigned Neuroscience Provider 09/30/24 Maru Man PA-C [address] [place] [address] Physician Business Banking Officer Dermatology 10/03/24 Maru Man PA-C [address] [place] [address] Physician Business Banking Officer Dermatology 10/22/24 Jelena David, SONJA [address] [facility] [place] [address] Assigned Surgical Provider 10/31/24 Fabiano Correa NP [address] [place] [address] Assigned Heart and Vascular Provider 11/30/24 documented as of this encounter
--- OUTSIDE RECORDS SUMMARY | 2024-12-17 21:37 | XMS_ITS | Encounter Summary ---
Author Organization [place] Address [address] [place] [address] Care Team Providers Care Operations Lead Name Role Phone Lita Oseguera Unavailable Unavailable Marija Edgar APRN AQUACULTURAL WORKER SUPERVISOR Primary Care Provider + Chanelle Mccann APRN CNM Unavailab le Kyara De La Fuente RN Unavailable Marija Edgar APRN AQUACULTURAL WORKER SUPERVISOR Unavailable Mynor Broussard MD Unavailable [phone] Keisha Dotson MD Unavailable Stacey Briones COMPUTER INFORMATION SYSTEMS INSTRUCTOR Unavailable Lesley Guillermo CHW Unavailable Mary Mejia Unavailable Unavailable Lita Oseguera Unavailable Unavailable Galo Burrell MD Unavailable Unavailable Cristina Wood Unavailable Lesley Guillermo CHW Unavailable Meredith Bedoya Unavailable Unavailable Cristina Wood Unavailable Diana Desir [facility] Unavailable [phone] Rain Galaviz PA-C Unavailable Summer Lara MD Unavailable [phone] Summer Lara MD Unavailable [phone] Summer Lara MD Unavailable [phone] Tavia Wyatt MD Unavailable [phone] Johnny Murillo MD Unavailable [phone] Erica Farrell TOLL LINE REPAIRER AQUACULTURAL WORKER SUPERVISOR Unavailable Vikas Teresitakaren Watson [facility] Unavailable Tavia Wyatt MD Unavailable [phone] Diana Desir [facility] Unavailable [phone] Rich Barrett MD Unavailable Neil Kent MD Unavailable Roney StoryM Unavailable Erica Farrell TOLL LINE REPAIRER AQUACULTURAL WORKER SUPERVISOR Unavailable Diana Desir [facility] Unavailable [phone] Jelena David OD Unavailable Galo Burrell MD Unavailable Unavailable Livan Sharif MD Unavailable Livan Sharif MD Unavailable Catherine Cm MD Unavailable + Valery Veronica PA-C Unavailable [phone] Catherine Cm MD Unavailable + Johnny Murillo MD Unavailable +[phone] Brea Quinn APRN AQUACULTURAL WORKER SUPERVISOR Unavailable [phone] Brea Quinn APRN AQUACULTURAL WORKER SUPERVISOR Unavailable [phone] Jose Francisco Johnson MD Unavailable Livan Sharif MD Unavailable + Catherine Cm MD Unavailable + Sydnie Martinez RN Unavailable Unavailable Alfonso Renteria MD Unavailable [phone] Esha Grimm PA-C Primary Care Provider Perez Chengjc Fish PA-C Unavailable ArmaniRadha ARLENE GRANADOS Unavailable Jelena David OD Unavailable Pao Joseph RN Unavailable Unavailable Esha Grimm PA-C Unavailable [phone] Valery Veronica PA-C Unavailable Rey Tay [...] Man PA-C Unavailable Jelena David OD Unavailable Fabaino Correa NP Unavailable Reason for Visit * Reason Onset Date Comments MyChart Communication 09/08/2020 Encounter Details Date Type Department Care Team (Latest Contact Info) Description 09/08/2020 MyC Medical Advice [address] [address] Marija Edgar APRN AQUACULTURAL WORKER SUPERVISOR [address] [place] [phone] MyChart Communication Social History Tobacco Use Types [...] Answer Date Recorded PHQ-2 Score 0 08/12/2020 [facility] [place] [place] of Occupat ional Health - Occupational [...] PM CDT Legal Sex Female 4:13 AM ECOMMERCE MERCHANDISING MANAGER Gender Identity Female 03/02/2021 5:45 PM CDT Sexual Orientation Straight 02/28/2020 12 :51 AM CDT COVID-19 Exposure Response Date Recorded In the last month, have you been in contact with someone who was confirmed or suspected to have Coronavirus / COVID-19? No / Unsure 09/09/2020 10:09 AM ECOMMERCE MERCHANDISING MANAGER documented as of this encounter Miscellaneous Notes * Telephone Encounter - Natasha Luis RN - 09/09/2020 7:29 AM CST See Ph.Creative message, cardio ordered, pt cannot view echo [...] RN, BSN Message handled by CLINIC NURSE.' MERCE MERCHANDISING MANAGER * Telephone Encounter - Ever Cardozo MA - 09/09/2020 7:08 AM CST Triage, could you please see if results are posted yet in regards to patients ultrasound. Ever Cardozo PRESS ASSISTANT ([facility]) MERCE MERCHANDISING MANAGER documented in this encounter Plan of Treatment Upcoming Encounters Date Type Department Care Team (Late st Contact Info) Description 12/19/2024 2:00 PM CDT Office Visit [address] [address] Lauren Claudio PA-C [address] [place] [address] 12/26/2024 7:30 AM CDT Office Visit [facility] [address] [phone] Neil Kent MD [address] [place] [address] 04/16/2025 11:00 AM CDT Virtual Visit [facility] [place] 909 [facility] 4th [place] [phone] Meredith Carrera PA-C [address] [place] [address] documented as of this encounter Visit Diagnoses Not on filedocumented in this encounter Additional Health Concerns Infection Onset Date Last Indicated Resolved Time Rule Out COVID-19 09/24/2020 09/24/2020 09/24/2020 9:24 AM CDT Rule Out COVID-19 11/05/2020 11/05/2020 11/06/2020 1:09 PM CDT Rule Out COVID-19 05/11/2021 05/11/2021 05/13/2021 10:18 AM CDT Rule Out COVID-19 07/13/2021 07/13/2021 07/14/2021 3:04 PM ECOMMERCE MERCHANDISING MANAGER Rule Out COVID-19 07/18/2021 07/18/2021 07/20/2021 1:56 PM ECOMMERCE MERCHANDISING MANAGER COVID-19 07/18/2021 07/18/2021 08/08/2021 11:3 9 PM ECOMMERCE MERCHANDISING MANAGER Rule Out COVID-19 12/18/2021 12/18/2021 12/19/2021 11:34 AM CDT Rule Out COVID-19 02/24/2022 02/24/2022 02/25/2022 1:08 PM CDT Rule Out COVID-19 04/26/2022 04/26/2022 04/26/2022 6:47 AM CDT Rule Out COVID-19 05/17/2022 05/17/2022 05/17/2022 10:20 PM ECOMMERCE MERCHANDISING MANAGER Rule Out COVID-19 06/09/2022 06/09/2022 06/09/2022 9:35 AM ECOMMERCE MERCHANDISING MANAGER COVID-19 06/09/2022 06/09/2022 06/30/2022 11:4 1 PM ECOMMERCE MERCHANDISING MANAGER Rule Out COVID-19 11/10/2022 11/10/2022 11/11/2022 [...] Total Score: 9 06/25/20 20 7:04 AM ECOMMERCE MERCHANDISING MANAGER documented as of this encounter Care Teams Operations Lead Relationship Specialty Start Date End Date Marija Edgar APRN CNP PCP - General Nurse Practitioner 04/30/20 04/14/23 Esha Grimm PA-C [address] [place] [address] PCP - General Family Medicine 05/04/23 Lita Oseguera Personal Advocate & Liaison (PAL) 02/28/20 03/27/23 [place] [address] [facility] 200 [place], [place] 869597 Assigned OBGYN Provider 05/02/2005/09 Kyara De La Fuente, RN Specialty Communications Analyst Neurology 06/04/20 03/05/21 Marija Edgar, ARLENE AQUACULTURAL WORKER SUPERVISOR Assigned PCP 06/08/20 04/29/23 Mynor Broussard MD 6363 [facility] 500 [place], [place] 807495 Assigned Surgical Provider 06/01/20 11/28/21 Keisha Dotson MD 9 [place] [address] Assigned Neuroscience Provider 06/04/20 04/01/23 Stacey Briones, [facility] Lead Communications Analyst Primary Care - CC 08/11/2012/30 Lesley Guillermo, [facility] Community Health Worker 08/11/2010/01 Mary Mejia Financial Resource Worker 09/02/20 10/06/20 Lita Oseguera Personal Advocate & Liaison (PAL) Family Medicine 09/10/20 09/21/20 Galo Burrell MD Assigned Heart and Vascular Provider 10/05/20 04/02/22 Cristina Wood Financial Resource Worker 10/07/20 10/14/20 Lesley Guillermo, [facility] Community Health Worker 10/23/2012/30 Meredith Bedoya Financial Resource Worker 10/23/20 11/23/20 Cristina Wood Financial Resource Worker 02/09/21 02/09/21 Diana Desir, [facility] [address] [place] [address] Pharmacist Pharmacist 04/17/21 Rain Galaviz PA-C [address] [place] [address] [address] [place], [place] [phone] Physician Make Ready Worker Dermatology 04/28/21 Summer Lara MD [address] [place], [place] 903224 Assigned OBGYN Provider 05/10/2105/23 Summer Lara MD [address] [place], [place] 70484454 Assigned OBGYN Provider 05/31/21 2 Summer Lara MD [address] [place], [place] 835854 Assigned OBGYN Provider 05/24/2105/30 Tavia Wyatt MD [address] [place], [place] 974424 Dermatology 07/14/21 Johnny Murillo MD [address] [place] [address] Assigned Musculoskeletal Provider 08/30/21 03/17/22 Erica Farrell APRN AQUACULTURAL WORKER SUPERVISOR 6405 [facility] [address] [place] [id number] Nurse Practitioner Cardiovascular Disease 09/09/21 Teresita Bean [facility] [address] [phone] Pharmacist Pharmacist 09/24/21 09/29/21 Tavia Wyatt MD [address] [place], [place] 546280 Assigned Surgical Provider 11/29/21 05/07/22 [facility] [address] [place] [address] Assigned MTM Pharmacist 01/02/22 Rich Barrett MD [address] [place] 849906 Physician Ophthalmology 01/21/22 Neil Kent MD 500 [place] [address] Dermatology 02/24/22 Roney Story DPM [address] [facility] 300 [place], [place] 032397 Assigned Musculoskeletal Provider 03/20/22 08/13/22 Erica Farrell APRN AQUACULTURAL WORKER SUPERVISOR 1700 [place] [address] Assigned Heart and Vascular Provider 04/03/22 04/16/22 Diana Desir, [facility] 30[address] [place], [place] 194396 Assigned MTM Pharmacist 04/07/22 FrankieJelena OD [address] [facility] [place] [address] Assigned Surgical Provider 05/08/22 10/08/22 Galo Burrell MD Assigned Heart and Vascular Provider 04/17/22 06/11/22 Livan Sharif MD [address] [address] [place], [place] 844775 Cardiovascular Disease 05/14/22 Livan Sharif MD [address] [place] [address] [place], [place] 575055 Assigned Heart and Vascular Provider 06/12/22 07/23/22 Catherine Cm MD [address] [address] [place], [place] 350675 Cardiovascular Disease 07/21/22 Valery Veronica, PAUcheC 909 [place], [place] 439315 Physician Make Ready Worker Dermatology 07/21/22 Catherine Cm MD [address] [place] 040165 Assigned Heart and Vascular Provider 07/24/22 11/05/22 Johnny Murillo MD [address] [facility] [address] [place] [address] Assigned Musculoskeletal Provider 08/14/22 10/08/22 Brea Quinn APRN AQUACULTURAL WORKER SUPERVISOR [address] [place] [address] Nurse Practitioner Dermatology 09/21/22 Brea Quinn APRN AQUACULTURAL WORKER SUPERVISOR 6401 [facility] [place] [id number] Assigned Surgical Provider 10/09/22 05/01/24 [place] [address] [facility] 300 [place], [place] 916927 Assigned Musculoskeletal Provider 10/09/22 05/01/24 Livan Sharif MD 6405 [facility] [address] [place] [address] Assigned Heart and Vascular Provider 11/06/22 11/12/22 Catherine Cm MD 6405 [facility] [address] [place] [address] Assigned Heart and Vascular Provider 11/13/22 05/27/23 Sydnie Martinez RN Personal Advocate & Liaison (PAL) Family Medicine 03/28/23 07/31/23 Alfonso Renteria MD 5775 [facility] 200 [place] [address] Assigned Neuroscience Provider 04/02/23 09/29/24 Cheng Todd PA-C [address] [place] [address] Assigned PCP 04/30/23 07/15/23 Radha Lomeli APRN AQUACULTURAL WORKER SUPERVISOR 6405 [facility] [place] [address] [place] [address] Assigned Heart and Vascular Provider 05/28/23 11/29/24 Jelena David OD [address] [facility] [place] [address] Ophthalmology 06/15/23 Pao Joseph, VJ Personal Advocate & Liaison (PAL) Nurse 08/01/23 11/07/23 Esha Grimm PA-C [address] [place] [phone] Assigned PCP 07/16/23 Valery Veronica PA-C [address] [place] [address] 984895 Physician Make Ready Worker Dermatology 09/19/23 Rey Tay MD [address] [place] [address] Gastroenterology 09/20/23 Rocky Zepeda DO [address] [place] [address] 805965 Physician Gastroenterology 09/20/23 Philip Dumont MD [address] [place] [address] Physician Ophthalmology 09/22/23 Meredith Carrera PA-C [address] [place] [address] Assigned Gastroenterology Provider 11/01/23 Neil Kent MD [address] [place] [address] Dermatology 11/02/23 [place] [address] [place] [address] Neurological Surgery 12/26/23 Audrey Waite PA-C [address] [place] [address] Physician Make Ready Worker Dermatology 02/28/24 Valery Veronica PA-C [address] [place] [address] Physician Make Ready Worker Dermatology 04/10/24 Herminia Hatch MD [facility]5 [place], [place] 63281125 Assigned Rheumatology Provider 07/02/24 Jelena David OD [address] [place] [address] [place] [id number] Ophthalmology 08/30/24 [place] [address] [place] [address] Assigned Neuroscience Provider 09/30/24 Maru Man PA-C [address] [place] [address] Physician Make Ready Worker Dermatology 10/03/24 Maru Man PA-C [address] [place] [address] Physician Make Ready Worker Dermatology 10/22/24 Jelena David OD 3[address] [facility] [place] [address] Assigned Surgical Provider 10/31/24 Fabiano Correa NP [address] [place] [place] [address] Assigned Heart and Vascular Provider 11/30/24 documented as of this encounter
--- OUTSIDE RECORDS SUMMARY | 2024-12-17 21:37 | XMS_ITS | Encounter Summary ---
Author Organization [place] Address [address] [place] [address] Care Team Providers Care Derrick Barge Operator Name Role Phone Lita Oseguera Unavailable Unavailable Marija Edgar APRN CAKE KNOCKER Primary Care Provider + Marija Edgar APRN CAKE KNOCKER Unavailable [phone] Keisha Dotson MD Unavailable Galo Burrell MD Unavailable Unavailable Diana Desir [facility] Unavailable Rain Galaviz PA-C Unavailable Summer Lara MD Unavailable [phone] Tavia Wyatt MD Unavailable Johnny Murillo MD Unavailable [phone] Erica Farrell APRN CAKE KNOCKER Unavailable Tavia Wyatt MD Unavailable Diana Desir [facility] Unavailable Rich Barrett MD Unavailable [phone] Neil Kent MD Unavailable Roney Story DPM Unavailable Erica Farrell APRN CAKE KNOCKER Unavailable Diana Desir [facility] Unavailable [phone] Jelena David OD Unavailable [phone] Galo Burrell MD Unavailable Unavailable HoLivan MD Unavailable Livan Sharif MD Unavailable IsCatherine hobbs MD Unavailable + Valery Veronica PA-C Unavailable [phone] Catherine Cm MD Unavailable + Johnny Murillo MD Unavailable [phone] Brea Quinn CASHIER SUPERVISOR CAKE KNOCKER Unavailable [phone] Brea Quinn CASHIER SUPERVISOR CAKE KNOCKER Unavailable [phone] Jose Francisco Johnson MD Unavailable Livan Sharif MD Unavailable + IsCatherine boothe MD Unavailable + Sydnie Martinez RN Unavailable Unavailable Alfonso Renteria MD Unavailable Esha Grimm PA-C Primary Care Provider Cheng Todd PA-C Unavailable Radha Lomeli CASHIER SUPERVISOR CAKE KNOCKER Unavailable [phone] Jelena David OD Unavailable Pao Joseph RN Unavailable Unavailable Esha Grimm PA-C Unavailable [phone] Valery Veronica PA-C Unavailable [phone] Rey Tay MD Unavailable Rocky Zepeda DO Unavailable Philip Dumont MD Unavailable [phone] Meredith Carrera PA-C Unavailable [phone] Neil Kent MD Unavailable Juan Pablo Emmanuel MD Unavailable [phone] Audrey WaiteC Unavailable [phone] Valery VeronicaC Unavailable [phone] Herminia Hatch MD Unavailable Jelena David OD Unavailable Juan Pablo Emmanuel MD Unavailable [phone] Maru Man PA-C Unavailable [phone] Maru Mna PA-C Unavailable [phone] Jelena David OD Unavailable Fabiano Correa LAND MANAGER Unavailable [phone] Encounter Details Date Type Department Care Team (Late st Contact Info) Description 12/03/2021 MyC Medical Advice [address] [address] Debbie Hdez MA Social History [...] How often do you attend temple or shinto serv ices? Never 09/22/2021 Do [...] Answer Date Recorded PHQ-2 Score 2 09/22/2021 [facility] of Occupat ional [...] a senior care (including now)? No 09/22/2021 [place] Depression [...] PM CDT Legal Sex Female 4:13 AM DRIVER SALES Gender Identity Female 03/02/2021 5:45 PM [...] Description 12/19/2024 2:00 PM CDT Office Visit [facility] [address] [place] [phone] Lauren Claudio PA-C [address] [place] [address] 12/26/2024 7:30 AM CDT Office Visit [facility] [address] [phone] Neil Kent MD [address] [place] [address] 04/16/2025 11:00 AM CDT Virtual Visit [facility] [address] 4th [place] [phone] Meredith Carrera PA-C [address] [place] [address] documented as of this encounter Visit Diagnoses Not on filedocumented in this encounter Additional Health Concerns Infection Onset Date Last Indicated Resolved Time Rule Out COVID-19 12/18/2021 12/18/2021 12/19/2021 11:34 AM CDT Rule Out COVID-19 02/24/2022 02/24/2022 02/25/2022 1:08 PM CDT Rule Out COVID-19 04/26/2022 04/26/2022 04/26/2022 6:47 AM CDT Rule Out COVID-19 05/17/2022 05/17/2022 05/17/2022 10:20 PM DRIVER SALES Rule Out COVID-19 06/09/2022 06/09/2022 06/09/2022 9:35 AM DRIVER SALES COVID-19 06/09/2022 06/09/2022 06/30/2022 11:4 1 PM DRIVER SALES Rule Out COVID-19 11/10/2022 11/10/2022 11/11/2022 12:17 [...] as of this encounter Care Teams Derrick Barge Operator Relationship Specialty Start Date End Date Marija Edgar APRN CAKE KNOCKER PCP - General Nurse Practitioner 04/30/20 04/14/23 Esha Grimm PA-C [address] [place] [phone] PCP - General Family Medicine 05/04/23 Lita Oseguera Personal Advocate & Liaison (PAL) 02/28/20 03/27/23 Marija Edgar APRN CAKE KNOCKER Assigned PCP 06/08/20 04/29/23 Keisha Dotson MD 909 [place], [place] 868715 Assigned Neuroscience Provider 06/04/20 04/01/23 Galo Burrell MD Assigned Heart and Vascular Provider 10/05/20 04/02/22 Diana Desir, [facility] 3033 [place], [place] 585356 Pharmacist Pharmacist 04/17/21 Rain Galaviz PA-C [address] [place] [address] [place] [address] Physician Head Filter Press Tender Dermatology 04/28/21 Summer Lara MD [address] [place] [address] Assigned OBGYN Provider 05/31/21 Tavia Wyatt MD [address] [place], [place] 706704 Dermatology 07/14/21 Johnny Murillo MD [address] [place], [place] 489994 Assigned Musculoskeletal Provider 08/30/21 03/17/22 Erica Farrell APRN CAKE KNOCKER 6405 [facility] [address] [place] [address] Nurse Practitioner Cardiovascular Disease 09/09/21 Tavia Wyatt MD [address] [place], [place] 310960 Assigned Surgical Provider 11/29/21 05/07/22 Diana Desir, [facility] [address] [place] [address] Assigned MTM Pharmacist 01/02/22 Rich Barrett MD [address] [place] [address] Physician Ophthalmology 01/21/22 Neil Kent MD 500 [place] [address] Dermatology 02/24/22 [place] [address] [employer] [facility] [address] [place] [address] Assigned Musculoskeletal Provider 03/20/22 08/13/22 Erica Farrell APRN CAKE KNOCKER 1700 [place] [address] Assigned Heart and Vascular Provider 04/03/22 04/16/22 Diana Desir, [facility] 30[address] [facility] [place] [address] Assigned MTM Pharmacist 04/07/22 Jelena David OD [address] [place] [address] Assigned Surgical Provider 05/08/22 10/08/22 Galo Burrell MD Assigned Heart and Vascular Provider 04/17/22 06/11/22 Livan Sharif MD [address] [place] [address] Cardiovascular Disease 05/14/22 Livan Sharif MD [address] [address] [place] 363515 Assigned Heart and Vascular Provider 06/12/22 07/23/22 Catherine Cm MD [address] [place] [address] [place] [address] Cardiovascular Disease 07/21/22 Valery Veronica, PA-C 909 [place] [address] Physician Head Filter Press Tender Dermatology 07/21/22 Catherine Cm MD [address] [place] 3828100 [place] [address] Assigned Heart and Vascular Provider 07/24/22 11/05/22 Johnny Murillo MD [address] [place] [address] Assigned Musculoskeletal Provider 08/14/22 10/08/22 Brea Quinn APRN CAKE KNOCKER [address] [place] [address] Nurse Practitioner Dermatology 09/21/22 Brea Quinn APRN CAKE KNOCKER [address] [place] [address] Assigned Surgical Provider 10/09/22 05/01/24 [place] [address] [facility] [address] [address] Assigned Musculoskeletal Provider 10/09/22 05/01/24 Livan Sharif MD 6405 [facility] [address] [place] [address] Assigned Heart and Vascular Provider 11/06/22 11/12/22 Catherine Cm MD [address] [facility] [address] [place], [place] 863155 Assigned Heart and Vascular Provider 11/13/22 05/27/23 Sydnie Martinez RN Personal Advocate & Liaison (PAL) Family Medicine 03/28/23 07/31/23 Alfonso Renteria MD 5775 [facility] 200 [place] [address] Assigned Neuroscience Provider 04/02/23 09/29/24 Cheng Todd PA-C [address] [place] [address] [phone] Assigned PCP 04/30/23 07/15/23 Radha Lomeli APRN CAKE KNOCKER [address] [place] [address] Assigned Heart and Vascular Provider 05/28/23 11/29/24 Jelena David OD [address] [place] [address] Ophthalmology 06/15/23 Pao Joseph RN Personal Advocate & Liaison (PAL) Nurse 08/01/23 11/07/23 Esha Grimm PA-C [address] [place] [phone] Assigned PCP 07/16/23 Valery Veronica PA-C 909 [place], [place] 784645 Physician Head Filter Press Tender Dermatology 09/19/23 Rey Tay MD [address] [place] [address] MD Gastroenterology 09/20/23 Rocky Zepeda DO [address] [place] [address] Physician Gastroenterology 09/20/23 Philip Dumont MD [address] [place] [address] Physician Ophthalmology 09/22/23 Meredith Carrera PA-C [address] [place] [address] Assigned Gastroenterology Provider 11/01/23 Neil Kent MD [address] [place] [address] Dermatology 11/02/23 [place] [address] [facility] [address] [address] Neurological Surgery 12/26/23 Audrey Waite PA-C [address] [place] [address] Physician Head Filter Press Tender Dermatology 02/28/24 Valery Veronica PA-C [address]301 [address] [place] [address] Physician Head Filter Press Tender Dermatology 04/10/24 Herminia Hatch MD [address] [place] [address] [id number] Assigned Rheumatology Provider 07/02/24 Jelena David OD 3305 [facility] [place] [address] Ophthalmology 08/30/24 [place] [address] [facility] [place] [address] Assigned Neuroscience Provider 09/30/24 Maru Man PA-C [address] [place] [address] 133010 Physician Head Filter Press Tender Dermatology 10/03/24 Maru Man PA-C [address] [place] [address] 776300 Physician Head Filter Press Tender Dermatology 10/22/24 Jelena David OD 3[address] [facility] [place] [address] Assigned Surgical Provider 10/31/24 Fabiano Correa NP [address] [place] [address] Assigned Heart and Vascular Provider 11/30/24 documented as of this encounter
--- OUTSIDE RECORDS SUMMARY | 2024-12-17 21:37 | XMS_ITS | Clinical Summary ---
Author Organization [facility] Address [address] [address] Phone Care Team Providers Care Chinese Medicine Practitioner Name Role Phone Unavailable Primary Care Provider [...] MEDICAL CENTER Commercial Address: [address] [place] [address]
--- OUTSIDE RECORDS SUMMARY | 2024-12-17 21:37 | XMS_ITS | Encounter Summary ---
Author Organization [facility] Address [address] [place] [address] Care Team Providers Care Deckhand Shrimp Boat Name Role Phone Diana Desir [facility] Unavailable [phone] Rain Galaviz PA-C Unavailable Tavia Wyatt MD Unavailable Erica Farrell APRN AMBULANCE DRIVER PARAMEDIC Unavailable Rich Barrett MD Unavailable [phone] Neil Kent MD Unavailable DesirDiana [facility] Unavailable Livan Sharif MD Unavailable Catherine Cm MD Unavailable + Valery Veronica PA-C Unavailable Brea Quinn APRN AMBULANCE DRIVER PARAMEDIC Unavailable Brea Quinn SWEAT BOX ATTENDANT AMBULANCE DRIVER PARAMEDIC Unavailable Jose Francisco Johnson MD Unavailable Sydnie Martinez RN Unavailable Unavailable Alfonso Renteria MD Unavailable [phone] Esha Grimm PA-C Primary Care Provider [phone] Cheng Todd PA-C Unavailable Radha Lomeli APRN AMBULANCE DRIVER PARAMEDIC Unavailable Jelena David OD Unavailable Pao Joseph RN Unavailable Unavailable Esha Grimm Adam PA-C Unavailable [phone] Valery Veronica PA-C Unavailable Rey Tay MD Unavailable Rocky Zepeda DO Unavailable Philip Dumont MD Unavailable Meredith Carrera PA-C Unavailable Neil Kent MD Unavailable Juan Pablo Emmanuel MD Unavailable Audrey Waite PA-C Unavailable JeremíasValery damon PA-C Unavailable Herminia Hatch MD Unavailable Jelena David OD Unavailable [phone] Juan Pablo Emmanuel MD Unavailable Maru Man PA-C Unavailable Maru Man PA-C Unavailable Jelena David OD Unavailable [phone] Fabiano Correa NP Unavailable Encounter Details Date Type Department Care Team (Late st Contact Info) Description 06/15/2023 [facility] Medical Advice [facility] [address] [address] Doris Levi Social History Tobacco [...] do you attend [facility] or mosque services? 1 to 4 [...] Answer Date Recorded PHQ-2 Score 1 05/16/2023 [facility] of Occupat ional Health - Occupational Stress [...] exercise at this level? 30 min 03/10/2023 [place] Depression Scale Answer Date Recorded [place] Depression Score 5 01/14/2021 Last EPDS Self [...] in an overnight retirement, or couch-surfing.) Yes 04/18/2023 Are you worried [...] PM CDT Legal Sex Female 4:13 AM WELDER EXPERIMENTAL Gender Identity Female 03/02/2021 5:45 PM CDT Sexual Orientation Straight 02/28/2020 12 :51 AM CDT documented as of this encounter Plan of Treatment Upcoming Encounters Date Type Department Care Team (Late st Contact Info) Description 12/19/2024 2:00 PM CDT Office Visit [facility] [address] [place] [phone] Lauren Claudio PA-C [address] [place] [address] 12/26/2024 7:30 AM CDT Office Visit [facility] [address] [phone] Neil Kent MD 500 [place] [address] 04/16/2025 11:00 AM CDT Virtual Visit [facility]astro[facility] 9[address] [facility] 4th [place] [phone] Meredith Carrera PA-C [address] [place] [address] documented as of this encounter Visit Diagnoses [...] Depression Total Score: 6 05/16/20 9:29 AM WELDER EXPERIMENTAL documented as of this encounter Care Teams Deckhand Shrimp Boat Relationship Specialty Start Date End Date Esha Grimm PA-C [address] [place] [address] PCP - General Family Medicine 05/04/23 Diana Desir, [facility] [address] [place] [address] Pharmacist Pharmacist 04/17/21 Rain Galaviz PA-C [address] [place] [address] [address] [facility] [place] [address] Physician Handbell Choir Director Dermatology 04/28/21 Tavia Wyatt MD [address] [place] [address] [address] [place] [address] Dermatology 07/14/21 Erica Farrell APRN AMBULANCE DRIVER PARAMEDIC [address] [place] [address] Nurse Practitioner Cardiovascular Disease 09/09/21 Rich Barrett MD [address] [place] [address] Physician Ophthalmology 01/21/22 Neil Kent MD 500 [place], [place] 171605 Dermatology 02/24/22 Diana Desir, [facility] 3033 [place] [address] Assigned MTM Pharmacist 04/07/22 Livan Sharif MD 6405 [facility] [address] [place] [address] Cardiovascular Disease 05/14/22 Catherine Cm MD 6405 [facility] [address] [place] [address] Cardiovascular Disease 07/21/22 Valery Veronica PA-C 909 [place], [place] [address] Physician Handbell Choir Director Dermatology 07/21/22 Brea Quinn APRN AMBULANCE DRIVER PARAMEDIC 500 [place], [place] 023745 Nurse Practitioner Dermatology 09/21/22 Brea Quinn APRN AMBULANCE DRIVER PARAMEDIC 6401 [place], [place] 670542 Assigned Surgical Provider 10/09/22 05/01/24 [place] [address] [facility] 300 [place] [address] Assigned Musculoskeletal Provider 10/09/22 05/01/24 Sydnie Martinez RN Personal Advocate & Liaison (PAL) Family Medicine 03/28/23 07/31/23 Alfonso Renteria MD 5775 [facility] 200 [place], [place] 123486 Assigned Neuroscience Provider 04/02/23 09/29/24 Cheng Todd PA-C [address] [place] [address] [phone] Assigned PCP 04/30/23 07/15/23 Radha Lomeli APRN AMBULANCE DRIVER PARAMEDIC [address] [place] [address] Assigned Heart and Vascular Provider 05/28/23 11/29/24 Jelena David OD [address] [facility] [place] [address] Ophthalmology 06/15/23 Pao Joseph, VJ Personal Advocate & Liaison (PAL) Nurse 08/01/23 11/07/23 Esha Grimm PA-C [address] [place] [phone] Assigned PCP 07/16/23 Valery Veronica PA-C [address] [place] [address] 9533[address] Physician Handbell Choir Director Dermatology 09/19/23 Rey Tay MD [address] [place] [address] 655615 Gastroenterology 09/20/23 Rocky Zepeda DO [address] [place] [address] Physician Gastroenterology 09/20/23 Philip Dumont MD [address] [place] [address] Physician Ophthalmology 09/22/23 Meredith Carrera PA-C [address] [place] [address] Assigned Gastroenterology Provider 11/01/23 Neil Kent MD [address] [place] [address] Dermatology 11/02/23 [place] [address] [place] [address] Neurological Surgery 12/26/23 Audrey Waite PA-C [address] [place] [address] Physician Handbell Choir Director Dermatology 02/28/24 Valery Veronica PA-C [address] [place] [address] Physician Handbell Choir Director Dermatology 04/10/24 Herminia Hatch MD [address] [place] [address] [phone] Assigned Rheumatology Provider 07/02/24 Jelena David OD [address] [place] [address] [place] [address] Ophthalmology 08/30/24 [place] [address] [place] [address] Assigned Neuroscience Provider 09/30/24 Maru Man PA-C [address] [place] [address] Physician Handbell Choir Director Dermatology 10/03/24 Maru Man PA-C [address] [place] [address] Physician Handbell Choir Director Dermatology 10/22/24 Jelena David OD [address] [facility] [place] [address] Assigned Surgical Provider 10/31/24 Fabiano Correa NP [address] [place] [address] Assigned Heart and Vascular Provider 11/30/24 documented as of this encounter
--- OUTSIDE RECORDS SUMMARY | 2024-12-17 21:37 | XMS_ITS | Encounter Summary ---
Author Organization [facility] Address [address] [place] [address] Care Team Providers Care German Professor Name Role Phone Lita Oseguera Unavailable Unavailable Marija Edgar APRN CLINICAL IMPLEMENTATION SPECIALIST Primary Care Provider + Marija Edgar APRN CLINICAL IMPLEMENTATION SPECIALIST Unavailable [phone] Keisha Dotson MD Unavailable Galo Burrell MD Unavailable Unavailable Diana Desir [facility] Unavailable [phone] Rain Galaviz PA-C Unavailable Summer Lara MD Unavailable [phone] Tavia Wyatt MD Unavailable Johnny Murillo MD Unavailable Erica Farrell APRN CLINICAL IMPLEMENTATION SPECIALIST Unavailable Tavia Wyatt MD Unavailable Diana Desir [facility] Unavailable Rich Barrett MD Unavailable [phone] Neil Kent MD Unavailable Roney Story DPM Unavailable Erica Farrell APRN CLINICAL IMPLEMENTATION SPECIALIST Unavailable Diana Desir [facility] Unavailable [phone] Jelena David OD Unavailable [phone] Galo Burrell MD Unavailable Unavailable HoLivan MD Unavailable Livan Sharif MD Unavailable IsCatherine hobbs MD Unavailable + Valery Veronica PA-C Unavailable [phone] Catherine Cm MD Unavailable + Johnny Murillo MD Unavailable [phone] Brea Quinn ROOF SERVICE TECHNICIAN CLINICAL IMPLEMENTATION SPECIALIST Unavailable [phone] Brea Quinn ROOF SERVICE TECHNICIAN CLINICAL IMPLEMENTATION SPECIALIST Unavailable [phone] Jose Francisco Johnson MD Unavailable Livan Sharif MD Unavailable + IsCatherine boothe MD Unavailable + Sydnie Martinez RN Unavailable Unavailable Alfonso Renteria MD Unavailable Esha Grimm PA-C Primary Care Provider Cheng Todd PA-C Unavailable Radha Lomeli ROOF SERVICE TECHNICIAN CLINICAL IMPLEMENTATION SPECIALIST Unavailable [phone] Jelena David OD Unavailable Pao Joseph RN Unavailable Unavailable Esha Grimm PA-C Unavailable [phone] Valery Veronica PA-C Unavailable [phone] Rey Tay MD Unavailable Rocky Zepeda DO Unavailable Philip Dumont MD Unavailable [phone] Meredith Carrera PA-C Unavailable Neil Kent MD Unavailable Juan Pablo Emmanuel MD Unavailable [phone] Audrey Waite-C Unavailable [phone] Valery Veronica-C Unavailable [phone] Herminia Hatch MD Unavailable Jelena David OD Unavailable Juan Pablo Emmanuel MD Unavailable [phone] Maru Man PA-C Unavailable [phone] Maru Man PA-C Unavailable [phone] Jelena David OD Unavailable Fabiano Correa INSPECTOR FIBROUS WALLBOARD Unavailable [phone] Encounter Details Date Type Department Care Team (Late st Contact Info) Description 03/09/2022 [facility] Medical Advice [address] [address] Abby Dye Social History Tobacco [...] Answer Date Recorded PHQ-2 Score 2 12/18/2021 [facility] of Occupat ional Health [...] in a snf (including now)? No 09/22/2021 [place] Depression Scale Answer Date Recorded [place] Depression Score 5 01/14/2021 Last EPDS Self Harm Result Not on file 01/14 Education Answer Date Recorded What is the highest level of school you have completed or the highest degree you have received? 12th grade 08/07/2020 Comments No Sex and Gender Information Value Date Recorded Sex Assigned at Female 03/02/2021 5:45 PM CDT Legal Sex Female 4:13 AM CHICKEN BUYER Gender Identity Female 03/02/2021 5:45 PM [...] Description 12/19/2024 2:00 PM CDT Office Visit [facility] [address] [place] [phone] Lauren Claudio PA-C [address] [place] [address] 12/26/2024 7:30 AM CDT Office Visit [facility] [address] [phone] Neil Kent MD [address] [place] [address] 04/16/2025 11:00 AM CDT Virtual Visit [facility] [address] 4th [place] [phone] Meredith Carrera PA-C [address] [place] [address] documented as of this encounter Visit Diagnoses Not on filedocumented in this encounter Additional Health Concerns Infection Onset Date Last Indicated Resolved Time Rule Out COVID-19 04/26/2022 04/26/2022 04/26/2022 6:47 AM CDT Rule Out COVID-19 05/17/2022 05/17/2022 05/17/2022 10:20 PM CHICKEN BUYER Rule Out COVID-19 06/09/2022 06/09/2022 06/09/2022 9:35 AM CHICKEN BUYER COVID-19 06/09/2022 06/09/2022 06/30/2022 11:4 1 PM CHICKEN BUYER Rule Out COVID-19 11/10/2022 11/10/2022 11/11/2022 12:17 PM CDT Rule Out COVID-19 03/07/2023 03/07/2023 03/07/2023 1:20 PM CDT Rule Out COVID-19 12/26/2023 12/26/2023 12/26/2023 9:50 AM CDT Rule Out COVID-19 04/09/2024 04/09/2024 04/10/2024 6:48 PM CDT Rule Out COVID-19 10/04/2024 10/04/2024 10/05/2024 9:42 AM CDT Rule Out COVID-19 11/20/2024 11/20/2024 11/21/2024 11:23 AM CDT Rule Out COVID11/21/2024 11/21/2024 11/22/2024 12:10 AM CDT Influenza 11/21/2024 11/21/2024 11/28/2024 7:42 PM CDT Assessment Noted Time PHQ-9 Depression Total Score: 2 12/19/19 22 2:50 PM CDT documented as of this encounter Care Teams German Professor Relationship Specialty Start Date End Date Marija Edgar APRN CLINICAL IMPLEMENTATION SPECIALIST PCP - General Nurse Practitioner 04/30/20 04/14/23 Esha Grimm PA-C [address] [place] [phone] PCP - General Family Medicine 05/04/23 Lita Oseguera Personal Advocate & Liaison (PAL) 02/28/20 03/27/23 Marija Edgar APRN CLINICAL IMPLEMENTATION SPECIALIST Assigned PCP 06/08/20 04/29/23 Keisha Dotson MD 909 [place], [place] 491185 Assigned Neuroscience Provider 06/04/20 04/01/23 Galo Burrell MD Assigned Heart and Vascular Provider 10/05/20 04/02/22 Diana Desir, [facility] [address] [place], [place] 365[address] Pharmacist Pharmacist 04/17/21 Rain Galaviz PA-C [address] [place] [address] DR [facility] [address] Physician Rubber Moulding Machine Operator Dermatology 04/28/21 Summer Lara MD [address] [place] [address] Assigned OBGYN Provider 05/31/21 Tavia Wyatt MD [address] [place] [address] Dermatology 07/14/21 Johnny Murillo MD [address] [facility] [address] [place] [address] 071444 Assigned Musculoskeletal Provider 08/30/21 03/17/22 Erica Farrell APRN CLINICAL IMPLEMENTATION SPECIALIST 6405 [facility] [address] [place] [address] Nurse Practitioner Cardiovascular Disease 09/09/21 Tavia Wyatt MD [address] [place], [place] 794850 Assigned Surgical Provider 11/29/21 05/07/22 Diana Desir, [facility] 30[address] [place] [address] Assigned MTM Pharmacist 01/02/22 Rich Barrett MD 3033 [place] [address] Physician Ophthalmology 01/21/22 Neil Kent MD 500 [place] [address] Dermatology 02/24/22 [place] [address] [facility] [address] [place], [place] 149037 Assigned Musculoskeletal Provider 03/20/22 08/13/22 Erica Farrell APRN CLINICAL IMPLEMENTATION SPECIALIST 1700 [place] [address] Assigned Heart and Vascular Provider 04/03/22 04/16/22 Diana Desir, [facility] [address] [place], [place] 629166 Assigned MTM Pharmacist 04/07/22 Jelena David OD [address] [place] [address] Assigned Surgical Provider 05/08/22 10/08/22 Galo Burrell MD Assigned Heart and Vascular Provider 04/17/22 06/11/22 Livan Sharif MD [address] [place] [address] Cardiovascular Disease 05/14/22 Livan Sharif MD [address] [place] [address] Assigned Heart and Vascular Provider 06/12/22 07/23/22 Catherine Cm MD [address] [place], [place] 972075 Cardiovascular Disease 07/21/22 Valery Veronica, PA-C [address] [place] [address] Physician Rubber Moulding Machine Operator Dermatology 07/21/22 Catherine Cm MD [address] [facility] [address] [place] [address] [place] [address] Assigned Heart and Vascular Provider 07/24/22 11/05/22 Johnny Murillo MD [address] [place] [address] Assigned Musculoskeletal Provider 08/14/22 10/08/22 Brea Quinn APRN CLINICAL IMPLEMENTATION SPECIALIST [address] [place] [address] 872945 Nurse Practitioner Dermatology 09/21/22 Brea Quinn APRN CLINICAL IMPLEMENTATION SPECIALIST 6401 [place] [address] Assigned Surgical Provider 10/09/22 05/01/24 [place] [address] [place] [address] Assigned Musculoskeletal Provider 10/09/22 05/01/24 Livan Sharif MD [address] [facility] [place] [address] Assigned Heart and Vascular Provider 11/06/22 11/12/22 Catherine Cm MD [address] [facility]00 [place] 984545 Assigned Heart and Vascular Provider 11/13/22 05/27/23 Sydnie Martinez RN Personal Advocate & Liaison (PAL) Family Medicine 03/28/23 07/31/23 Alfonso Renteria MD 5775 [facility] [address] [place] [address] Assigned Neuroscience Provider 04/02/23 09/29/24 Cheng Todd PA-C [address] [place] [address] Assigned PCP 04/30/23 07/15/23 Radha Lomeli APRN CLINICAL IMPLEMENTATION SPECIALIST 6405 [facility] [address] [place] [address] Assigned Heart and Vascular Provider 05/28/23 11/29/24 Jelena David OD [address] [place] [address] Ophthalmology 06/15/23 Pao Joseph, VJ Personal Advocate & Liaison (PAL) Nurse 08/01/23 11/07/23 Esha Grimm PA-C [address] [place] [phone] Assigned PCP 07/16/23 Valery Veronica PA-C [address] [place] [address] 689375 Physician Rubber Moulding Machine Operator Dermatology 09/19/23 Rey Tay MD [address] [place] [address] Gastroenterology 09/20/23 Rocky Zepeda DO [address] [place] [address] Physician Gastroenterology 09/20/23 Philip Dumont MD [address] [place] [address] Physician Ophthalmology 09/22/23 Meredith Carrera PA-C [address] [place] [address] Assigned Gastroenterology Provider 11/01/23 Neil Kent MD [address] [place] [address] MD Dermatology 11/02/23 Juan [place] [address] [place] [address] [facility] [place] [address] Neurological Surgery 12/26/23 Audrey Waite PA-C [address] [place] [address] Physician Rubber Moulding Machine Operator Dermatology 02/28/24 Valery Veronica PA-C 991588 [address], [place] [address] Physician Rubber Moulding Machine Operator Dermatology 04/10/24 Herminia Hatch MD [address] [place] [address] [id number] Assigned Rheumatology Provider 07/02/24 [place] [address] [place] [address] [place] [address] Ophthalmology 08/30/24 [place] [address] [address] [place] [address] Assigned Neuroscience Provider 09/30/24 Maru Man PA-C [address] [place] [address] Physician Rubber Moulding Machine Operator Dermatology 10/03/24 Maru Man PA-C [address] [place] [address] Physician Rubber Moulding Machine Operator Dermatology 10/22/24 Jelena David OD [address] [facility] [place] [address] Assigned Surgical Provider 10/31/24 Fabiano Correa NP [address] [place] [address] Assigned Heart and Vascular Provider 11/30/24 documented as of this encounter
--- OUTSIDE RECORDS SUMMARY | 2024-12-17 21:37 | XMS_ITS | Encounter Summary ---
Author Organization [facility] Address [address] [place] [address] Care Team Providers Care Magazine Journalist Name Role Phone Lita Oseguera Unavailable Unavailable Marija Edgar APRN CORE DRIER Primary Care Provider + Chanelle Mccann APRN CNM Unavailab le yKara De La Fuente RN Unavailable [phone] Marija Edgar APRN CORE DRIER Unavailable Mynor Broussard MD Unavailable [phone] Keisha Dotson MD Unavailable Stacey Briones DIRECTOR OF SPORTS PERFORMANCE Unavailable Lesley Guillermo CHW Unavailable Mary Mejia Unavailable Unavailable Lita Oseguera Unavailable Unavailable Galo Burrell MD Unavailable Unavailable Cristina Wood Unavailable Lesley Guillermo CHW Unavailable Meredith Bedoya Unavailable Unavailable Cristina Wood Unavailable Diana Desir [facility] Unavailable Rain Galaviz PA-C Unavailable Summer Lara MD Unavailable [phone] Summer Lara MD Unavailable [phone] Summer Lara MD Unavailable [phone] Tavia Wyatt MD Unavailable [phone] Johnny Murillo MD Unavailable [phone] Erica Farrell REGIONAL PROGRAM MANAGER CORE DRIER Unavailable Vikas Teresitakaren Watson [facility] Unavailable Tavia Wyatt MD Unavailable [phone] Diana Desir [facility] Unavailable [phone] Rich Barrett MD Unavailable Neil Kent MD Unavailable Roney StoryM Unavailable Erica Farrell REGIONAL PROGRAM MANAGER CORE DRIER Unavailable Diana Desir [facility] Unavailable [phone] Jelena David OD Unavailable Galo Burrell MD Unavailable Unavailable Livan Sharif MD Unavailable Livan Sahrif MD Unavailable Catherine Cm MD Unavailable + Valery Veronica PA-C Unavailable [phone] Catherine Cm MD Unavailable + Johnny Murillo MD Unavailable +[phone] Brea Quinn APRN CORE DRIER Unavailable [phone] Brea Quinn APRN CORE DRIER Unavailable [phone] Jose Francisco Johnson MD Unavailable Livan Sharif MD Unavailable + Catherine Cm MD Unavailable + Sydnie Martinez RN Unavailable Unavailable Alfonso Renteria MD Unavailable [phone] Esha Grimm PA-C Primary Care Provider Perez Chengjc Fish PA-C Unavailable ArmaniRadha ARLENE GRANADOS Unavailable Jelena David OD Unavailable Pao Joseph RN Unavailable Unavailable Esha Grimm PA-C Unavailable [phone] Valery Veronica PA-C Unavailable Rey Tay [...] David OD Unavailable Fabiano Correa NP Unavailable Reason for Visit * Reason Onset Date Comments MyChart Communication 09/02/2020 Encounter Details Date Type Department Care Team (Latest Contact Info) Description 09/02/2020 MyC Medical Advice [address] [address] Marija Edgar APRN CORE DRIER [address] [place] [address] MyChart Communication Social History Tobacco Use [...] Answer Date Recorded PHQ-2 Score 0 08/12/2020 [facility] of Occupat ional Health - Occupational Stress [...] CDT Legal Sex Female 4:13 AM STAFF GENETIC COUNSELOR Gender Identity Female 03/02/2021 5:45 PM CDT Sexual Orientation Straight 02/28/2020 12 :51 AM CDT COVID-19 Exposure Response Date Recorded In the last month, have you been in contact with someone who was confirmed or suspected to have Coronavirus / COVID-19? No / Unsure 09/05/2020 2:50 PM STAFF GENETIC COUNSELOR documented as of this encounter Miscellaneous Notes * Telephone Encounter - Ever Cardozo MA - 09/03/2020 10:34 AM CST Responded to patient as below. Ever Cardozo RESEARCH KENNEL SUPERVISOR (AAMA) F GENETIC COUNSELOR documented in this encounter Plan of Treatment Upcoming Encounters Date Type Department Care Team (Late st Contact Info) Description 12/19/2024 2:00 PM CDT Office Visit [address] [phone] Lauren Claudio PA-C [id number] [place] [address] 12/26/2024 7:30 AM CDT Office Visit [facility] [address] [phone] Neil Kent MD [address] [place] [address] 455245 04/16/2025 11:00 AM CDT Virtual Visit [facility] [address] 4th [place] [phone] Meredith Carrera PA-C [address] [place] [address] documented as of this encounter Visit Diagnoses Not on filedocumented in this encounter Additional Health Concerns Infection Onset Date Last Indicated Resolved Time Rule Out COVID-19 09/24/2020 09/24/2020 09/24/2020 9:24 AM CDT Rule Out COVID-19 11/05/2020 11/05/2020 11/06/2020 1:09 PM CDT Rule Out COVID-19 05/11/2021 05/11/2021 05/13/2021 10:18 AM CDT Rule Out COVID-19 07/13/2021 07/13/2021 07/14/2021 3:04 PM STAFF GENETIC COUNSELOR Rule Out COVID-19 07/18/2021 07/18/2021 07/20/2021 1:56 PM STAFF GENETIC COUNSELOR COVID-19 07/18/2021 07/18/2021 08/08/2021 11:3 9 PM STAFF GENETIC COUNSELOR Rule Out COVID-19 12/18/2021 12/18/2021 12/19/2021 11:34 AM CDT Rule Out COVID-19 02/24/2022 02/24/2022 02/25/2022 1:08 PM CDT Rule Out COVID-19 04/26/2022 04/26/2022 04/26/2022 6:47 AM CDT Rule Out COVID-19 05/17/2022 05/17/2022 05/17/2022 10:20 PM STAFF GENETIC COUNSELOR Rule Out COVID-19 06/09/2022 06/09/2022 06/09/2022 9:35 AM STAFF GENETIC COUNSELOR COVID-19 06/09/2022 06/09/2022 06/30/2022 11:4 1 PM STAFF GENETIC COUNSELOR Rule Out COVID-19 11/10/2022 11/10/2022 11/11/2022 [...] Depression Total Score: 9 06/25/20 7:04 AM STAFF GENETIC COUNSELOR documented as of this encounter Care Teams Magazine Journalist Relationship Specialty Start Date End Date Marija Edgar APRN CORE DRIER PCP - General Nurse Practitioner 04/30/20 04/14/23 Esha Grimm PA-C [address] [place] [phone] PCP - General Family Medicine 05/04/23 Lita Oseguera Personal Advocate & Liaison (PAL) 02/28/20 03/27/23 Chanelle Mccann APRN CNM [address] [place] [address] Assigned OBGYN Provider 05/02/2005/09 Kyara De La Fuente, RN Specialty Harnessmaker Apprentice Neurology 06/04/20 03/05/21 Marija Edgar APRN CORE DRIER Assigned PCP 06/08/20 04/29/23 Mynor Broussard MD [address] [place] [address] Assigned Surgical Provider 06/01/20 11/28/21 Keisha Dotson MD [address]09 [place] [address] Assigned Neuroscience Provider 06/04/20 04/01/23 Stacey Briones, [facility] Lead Harnessmaker Apprentice Primary Care - CC 08/11/2012/30 Lesley Guillermo, [facility] Community Health Worker 08/11/2010/01 Mary Mejia Financial Resource Worker 09/02/20 10/06/20 Lita Oseguera Personal Advocate & Liaison (PAL) Family Medicine 09/10/20 09/21/20 Galo Burrell MD Assigned Heart and Vascular Provider 10/05/20 04/02/22 Cristina Wood Financial Resource Worker 10/07/20 10/14/20 Lesley Guillermo, [facility] Community Health Worker 10/23/2012/30 Meredith Bedoya Financial Resource Worker 10/23/20 11/23/20 Cristina Wood Financial Resource Worker 02/09/21 02/09/21 Diana Desir, [facility] [address] [place] [address] Pharmacist Pharmacist 04/17/21 Rain Galaviz PA-C [address] [place] [address] [address] [address] Physician Cattle Broker Dermatology 04/28/21 Summer Lara MD [address] [place] [address] 937554 Assigned OBGYN Provider 05/10/2105/23 Summer Lara MD [address] [place] [address] 599384 Assigned OBGYN Provider 05/31/21 Summer Lara MD [address] [place] [address] 026044 Assigned OBGYN Provider 05/24/2105/30 Tavia Wyatt MD [address] [place] [address] [phone] Dermatology 07/14/21 Johnny Murillo MD [facility] [address] [facility] [address] [place], [place] 254344 Assigned Musculoskeletal Provider 08/30/21 03/17/22 Eriac Farrell APRN CORE DRIER [address] [facility] [address] [place] [phone] Nurse Practitioner Cardiovascular Disease 09/09/21 Teresita Bean [facility] [address] [phone] Pharmacist Pharmacist 09/24/21 09/29/21 Tavia Wyatt MD [address] [place], [place] 796700 Assigned Surgical Provider 11/29/21 05/07/22 Diana Desir, [facility] [address] [place] [address] Assigned MTM Pharmacist 01/02/22 Rich Barrett MD [address] [place] [address] 459856 Physician Ophthalmology 01/21/22 Neil Ketn MD 500 [place], [place] 738025 Dermatology 02/24/22 Roney Story DPM [address] [facility] [address] [place], [place] 111957 Assigned Musculoskeletal Provider 03/20/22 08/13/22 Erica Farrell APRN CORE DRIER 1700 [place] [address] Assigned Heart and Vascular Provider 04/03/22 04/16/22 Diana Desir, [facility] [address] [place] [address] Assigned MTM Pharmacist 04/07/22 Jelena David OD [address] [facility] [place] [address] Assigned Surgical Provider 05/08/22 10/08/22 Galo Burrell MD Assigned Heart and Vascular Provider 04/17/22 06/11/22 Livan Sharif MD [address] [facility] [address] [place] [address] Cardiovascular Disease 05/14/22 Livan Sharif MD [address] [place] [address] Assigned Heart and Vascular Provider 06/12/22 07/23/22 Catherine Cm MD [address] [place] [address] Cardiovascular Disease 07/21/22 Valery Veronica, PA-C [address] [place] [address] 933665 Physician Cattle Broker Dermatology 07/21/22 Catherine Cm MD [address] [place] [address] Assigned Heart and Vascular Provider 07/24/22 11/05/22 Johnny Murillo MD [address] [place] [address] 288054 Assigned Musculoskeletal Provider 08/14/22 10/08/22 Brea Quinn APRN CORE DRIER [address] [place] [address] [phone] Nurse Practitioner Dermatology 09/21/22 Brea Quinn APRN CORE DRIER [address] [place] [address] [place] 185672 Assigned Surgical Provider 10/09/22 05/01/24 [place] [address] [place] [address] Assigned Musculoskeletal Provider 10/09/22 05/01/24 Livan Sharif MD [address] [place] [phone] Assigned Heart and Vascular Provider 11/06/22 11/12/22 Catherine Cm MD [address] [place] [address] Assigned Heart and Vascular Provider 11/13/22 05/27/23 Sydnie Martinez RN Personal Advocate & Liaison (PAL) Family Medicine 03/28/23 07/31/23 Alfonso Renteria MD [address] [facility] 200 [place] [address] Assigned Neuroscience Provider 04/02/23 09/29/24 Cheng Todd PA-C [address] [place] [address] [id number] Assigned PCP 04/30/23 07/15/23 Radha Lomeli, REGIONAL PROGRAM MANAGER CORE DRIER [address] [place] [address] Assigned Heart and Vascular Provider 05/28/23 11/29/24 Jelena David OD [address] [facility] [place] [address] Ophthalmology 06/15/23 Pao Joseph, VJ Personal Advocate & Liaison (PAL) Nurse 08/01/23 11/07/23 Esha Grimm PA-C [address] [place] [phone] Assigned PCP 07/16/23 Valery Veronica PA-C [address] [place] [address]0015 Physician Cattle Broker Dermatology 09/19/23 Rey Tay MD [address] [place] [address] 844445 MD Gastroenterology 09/20/23 Rocky Zepeda DO [address] [place] [address] 379365 Physician Gastroenterology 09/20/23 Philip Dumont MD [address] [place] [address] 889705 Physician Ophthalmology 09/22/23 Meredith Carrera PA-C [address] [place] [address] 725305 Assigned Gastroenterology Provider 11/01/23 Neil Kent MD [address] [place] [address] Dermatology 11/02/23 [place] [address] [place] [address] Neurological Surgery 12/26/23 Audrey Waite PA-C 500 [place] [address] Physician Cattle Broker Dermatology 02/28/24 Valery Veronica PA-C [address] [place] [address] Physician Cattle Broker Dermatology 04/10/24 Herminia Hatch MD [address] [place] [address] Assigned Rheumatology Provider 07/02/24 Jelena David OD [address] [place] [address] [place] [address] Ophthalmology 08/30/24 [place] [address] [place] [address] Assigned Neuroscience Provider 09/30/24 Maru Man PA-C [address] [place] [address] Physician Cattle Broker Dermatology 10/03/24 Maru Man PA-C [address] [place] [address] Physician Cattle Broker Dermatology 10/22/24 Jelena David OD [address] [place] [address] [place] [address] Assigned Surgical Provider 10/31/24 Fabiano Correa NP [address] [facility] [place] [address] Assigned Heart and Vascular Provider 11/30/24 documented as of this encounter
--- OUTSIDE RECORDS SUMMARY | 2024-12-17 21:37 | XMS_ITS | Encounter Summary ---
Author Organization [facility] Address [address] [place] [address] Care Team Providers Care Clinical Resource Coordinator Name Role Phone Diana Desir Stanislav [facility] Unavailable [phone] Rain Galaviz PA-C Unavailable Tavia Wyatt MD Unavailable Erica Farrell APRN CORPORATE SAFETY COORDINATOR Unavailable Rich Barrett MD Unavailable [phone] Neil Kent MD Unavailable ThangKendrickDiana Stanislav [facility] Unavailable [phone] Livan Sharif MD Unavailable Catherine Cm MD Unavailable + Valery Veronica-C Unavailable Brea Quinn APRN CORPORATE SAFETY COORDINATOR Unavailable Esha Grimm PA-C Primary Care Provider [phone] Radha Lomeli APRN CORPORATE SAFETY COORDINATOR Unavailable Jelena David OD Unavailable Esha Grimm PA-C Unavailable [phone] Valery Veronica PA-C Unavailable [phone] Rey Tay MD Unavailable DuaneRocky Unavailable Philip Dumont MD Unavailable [phone] PinoMeredith paez PA-C Unavailable [phone] Neil Kent MD Unavailable Juan Pablo Emmanuel MD Unavailable Audrey Waite PA-C Unavailable [phone] Valery Veronica PA-C Unavailable [phone] Herminia Hatch MD Unavailable Jelena David OD Unavailable Juan Pablo Emmanuel MD Unavailable [phone] Maru Man-C Unavailable [phone] Maru Man-C Unavailable [phone] Jelena David OD Unavailable Reason for Visit * Reason Onset Date Comments General 11/21/2024 Encounter Details Date Type Department Care Team (Late st Contact Info) Description 11/21/2024 Telephone [facility] Nurse Advisors Critical access hospital9 [place] [address] Celine Vogel RN General Social [...] Answer Date Recorded PHQ-2 Score 1 10/24/2024 [facility] of Occupat ional [facility] - Occupational Stress Questionnaire Answer [...] exercise at this level? 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 was seen at [facility] today due to concern for tachycardia. has heart history and her pulse was in the 180s today. she tested positive for influenza B today and is concerned for risk of developing sepsis or mono. was seen at yesterday and was negative for flu, positive for yeast infection and is yet to start fluconazole. symptoms have not changed. Shortness of breath that is the same as on assessment after coughing or walking up stairs. This resolves with rest. Cough that prodices green phlegm. Heart rate 80-120, no chest pain or palpitations. Temp 100.9 alternating tylenol and ibuprofen, BP today 134/85 at home, and O2%> 92%. Reviewed symptoms of concern for return care, review of sepsis. Discussed concerns and allowed patient to ask all questions and answered. Instructed patient to call clinic for further questions and present to UC/ER for worsening symptoms.Patient verbalized understanding and agrees with the plan. Meagan Richey RN * Telephone Encounter - Celine Vogel RN - 11/21/2024 4:03 AM CDT Call from patient who was routed to freelance writer while she was enroute to the [facility] with concerns regarding SVT. Patient states that she had already spoken with someone at the [facility] and She states that she had asked them to transfer her to someone so she could speak with someone as she was traveling with her 4 year old daughter. Patient reported to freelance writer that she arrived safely to the hospital at 0405. documented in this encounter Plan of Treatment Upcoming Encounters Date Type Department Care Team (Late st Contact Info) Description 12/19/2024 2:00 PM CDT Office Visit [address] [address] Lauren Claudio PA-C [address] [place] [address] 12/26/2024 7:30 AM CDT Office Visit [facility] [address] [address] Neil Kent MD [address] [place] [address] 04/16/2025 11:00 AM CDT Virtual Visit [facility] [address] [place] [phone] Meredith Carrera PA-C [address]09 [place] [address] documented as of this encounter Visit Diagnoses Not on filedocumented in this encounter Additional Health Concerns Infection Onset Date Last Indicated Resolved Time Rule Out COVID-19 11/20/2024 11/20/2024 11/21/2024 11:23 AM CDT Assessment Noted Time PHQ-9 Depression Total Score: 5 10/25/19 10:38 AM CDT documented as of this encounter Care Teams Clinical Resource Coordinator Relationship Specialty Start Date End Date Esha Grimm PA-C [address] [place] [address] PCP - General Family Medicine 05/04/23 [facility] 3033 [place] [address] Pharmacist Pharmacist 04/17/21 Rain Galaviz PA-C [address] [place] [address] [address] [place] [address] Physician Blueprinter Dermatology 04/28/21 Tavia Wyatt MD [address] [place] [address] [address] [place] [address] Dermatology 07/14/21 Erica Farrell APRN CORPORATE SAFETY COORDINATOR [address] [place] [address] Nurse Practitioner Cardiovascular Disease 09/09/21 Rich Barrett MD [address] [place] [address] Physician Ophthalmology 01/21/22 Neil Kent MD 500 [place] [address] Dermatology 02/24/22 Diana Desir, [facility] 30[address] [place] [address] Assigned MTM Pharmacist 04/07/22 Livan Sharif MD [address] [address] Cardiovascular Disease 05/14/22 Catherine Cm MD [address] [address] Cardiovascular Disease 07/21/22 Valery Veronica, PA-C 909 [place] [address] Physician Blueprinter Dermatology 07/21/22 Brea Quinn APRN CORPORATE SAFETY COORDINATOR 500 [place] [address] Nurse Practitioner Dermatology 09/21/22 Radha Lomeli APRN CORPORATE SAFETY COORDINATOR [address] [facility] [place], [place] 181015 Assigned Heart and Vascular Provider 05/28/23 11/29/24 Jelena David OD [address] [facility] [address] [place] [phone] MD Ophthalmology 06/15/23 Esha Grimm PA-C [address] [place] [phone] Assigned PCP 07/16/23 Valery Veronica PA-C [address] [place] [address] 926865 Physician Blueprinter Dermatology 09/19/23 Rey Tay MD [address] [place] [address] [id number] MD Gastroenterology 09/20/23 Rocky Zepeda DO [address] [place] [address] 165955 Physician Gastroenterology 09/20/23 Philip Dumont MD [address] [place] [address] 726945 Physician Ophthalmology 09/22/23 Meredith Carrera PA-C [address] [place] [address] 602115 Assigned Gastroenterology Provider 11/01/23 Neil Kent MD [address] [place] [address] Dermatology 11/02/23 [place] [address] [place] [address] Neurological Surgery 12/26/23 Audrey Waite PA-C 500 [place] [address] Physician Blueprinter Dermatology 02/28/24 Valery Veronica PA-C [address] [place] [address] Physician Blueprinter Dermatology 04/10/24 Herminia Hatch MD [address] [place] [address] Assigned Rheumatology Provider 07/02/24 Jelena Davdi OD [address] [place] [address] [place] [address] Ophthalmology 08/30/24 [place] [address] [place] [address] Assigned Neuroscience Provider 09/30/24 Maru Man PA-C [address] [place] [address] Physician Blueprinter Dermatology 10/03/24 Maru Man PA-C [address] [place] [address] Physician Blueprinter Dermatology 10/22/24 Jelena David OD [address] [place] [address] ENMA KING [address] Assigned Surgical Provider 10/31/24 documented as of this encounter
--- OUTSIDE RECORDS SUMMARY | 2024-12-17 21:37 | XMS_ITS | Encounter Summary ---
Author Organization [facility] Address [address] [place] [address] Care Team Providers Care Bi Technical Lead Name Role Phone Lita Oseguera Unavailable Unavailable Marija Edgar APRN CURRICULUM DIRECTOR Primary Care Provider + Chanelle Mccann APRN CNM Unavailab le Kyara De La Fuente RN Unavailable [phone] Marija Edgar APRN CURRICULUM DIRECTOR Unavailable [phone] Mynor Broussard MD Unavailable [phone] Keisha Dotson MD Unavailable Stacey Briones CLOTH DESIGNER Unavailable [phone] Lesley Guillermo CHW Unavailable Mary Mejia Unavailable Unavailable Lita Oseguera Unavailable Unavailable Galo Burrell MD Unavailable Unavailable Cristina Wood Unavailable Lesley Guillermo CHW Unavailable Meredith Bedoya Unavailable Unavailable Cristina Wood Unavailable Diana Desir [facility] Unavailable [phone] Rain Galaviz PA-C Unavailable Summer Lara MD Unavailable [phone] Summer Lara MD Unavailable [phone] Summer Lara MD Unavailable [phone] Tavia Wyatt MD Unavailable [phone] Johnny Murillo MD Unavailable [phone] Erica Farrell MACHINE PRECISION ETCHER CURRICULUM DIRECTOR Unavailable Vikas Teresitakaren Watson [facility] Unavailable Tavia Wyatt MD Unavailable [phone] Diana Desir [facility] Unavailable [phone] Rich Barrett MD Unavailable Neil Kent MD Unavailable Roney StoryM Unavailable Erica Farrell MACHINE PRECISION ETCHER CURRICULUM DIRECTOR Unavailable Diana Desir [facility] Unavailable [phone] Jelena David OD Unavailable Galo Burrell MD Unavailable Unavailable Livan Sharif MD Unavailable Livan Sharif MD Unavailable Catherine Cm MD Unavailable + Valery Veronica PA-C Unavailable [phone] Catherine Cm MD Unavailable + Johnny Murillo MD Unavailable +[phone] Brea Quinn APRN CURRICULUM DIRECTOR Unavailable [phone] Brea Quinn APRN CURRICULUM DIRECTOR Unavailable [phone] Jose Francisco Johnson MD Unavailable Livan Sharif MD Unavailable + Catherine Cm MD Unavailable + Sydnie Martinez RN Unavailable Unavailable Alfonso Renteria MD Unavailable [phone] Esha Grimm PA-C Primary Care Provider Perez Chengcj Fish PA-C Unavailable Armani Radha Stovall ARLENE GRANADOS Unavailable Jelena David OD Unavailable Pao Joseph RN Unavailable Unavailable Esha Grimm PA-C Unavailable [phone] Valery Veronica PA-C Unavailable Rey Tay [...] Contact Info) Description 08/24/2020 My[facility] Medical Advice [address] [phone] Marija Edgar APRN [facility] [address] [facility] [place] [address] Social History Tobacco Use Types Packs/Day [...] Answer Date Recorded PHQ-2 Score 0 08/12/2020 [employer] [facility] - [...] PM CDT Legal Sex Female 4:13 AM DESCRIPTIVE CATALOG LIBRARIAN Gender Identity Female 03/02/2021 5:45 PM CDT Sexual Orientation Straight 02/28/2020 12 :51 AM CDT COVID-19 Exposure Response Date Recorded In the last month, have you been in contact with someone who was confirmed or suspected to have Coronavirus / COVID-19? No / Unsure 08/20/2020 12:47 PM DESCRIPTIVE CATALOG LIBRARIAN documented as of this encounter Miscellaneous Notes * Telephone Encounter - Marija Edgar APRN CNP - 08/25/2020 11:47 AM DESCRIPTIVE CATALOG LIBRARIAN Replied via MyChart Marija Edgar APRN CURRICULUM DIRECTOR on 08/25/2020 at 11:51 AM RIPTIVE CATALOG LIBRARIAN documented in this encounter Plan of Treatment Upcoming Encounters Date Type Department Care Team (Late st Contact Info) Description 12/19/2024 2:00 PM CDT Office Visit [facility] [address] [place] [phone] Lauren Claudio PA-C [id number] [place] [address] 12/26/2024 7:30 AM CDT Office Visit [facility] [address] [phone] Neil Kent MD [address] [place] [address] 175255 04/16/2025 11:00 AM CDT Virtual Visit [facility] [address] 4[address] [place] [address] Meredith Carrera PA-C [address] [place] [address] documented as of this encounter Visit Diagnoses Not on filedocumented in this encounter Additional Health Concerns Infection Onset Date Last Indicated Resolved Time Rule Out COVID-19 08/30/2020 08/30/2020 08/30/2020 5:05 PM DESCRIPTIVE CATALOG LIBRARIAN Rule Out COVID-19 09/24/2020 09/24/2020 09/24/2020 9:24 AM CDT Rule Out COVID-19 11/05/2020 11/05/2020 11/06/2020 1:09 PM CDT Rule Out COVID-19 05/11/2021 05/11/2021 05/13/2021 10:18 AM CDT Rule Out COVID-19 07/13/2021 07/13/2021 07/14/2021 3:04 PM DESCRIPTIVE CATALOG LIBRARIAN Rule Out COVID-19 07/18/2021 07/18/2021 07/20/2021 1:56 PM DESCRIPTIVE CATALOG LIBRARIAN COVID-19 07/18/2021 07/18/2021 08/08/2021 11:3 9 PM DESCRIPTIVE CATALOG LIBRARIAN Rule Out COVID-19 12/18/2021 12/18/2021 12/19/2021 11:34 AM CDT Rule Out COVID-19 02/24/2022 02/24/2022 02/25/2022 1:08 PM CDT Rule Out COVID-19 04/26/2022 04/26/2022 04/26/2022 6:47 AM CDT Rule Out COVID-19 05/17/2022 05/17/2022 05/17/2022 10:20 PM DESCRIPTIVE CATALOG LIBRARIAN Rule Out COVID-19 06/09/2022 06/09/2022 06/09/2022 9:35 AM DESCRIPTIVE CATALOG LIBRARIAN COVID-19 06/09/2022 06/09/2022 06/30/2022 11:4 1 PM DESCRIPTIVE CATALOG LIBRARIAN Rule Out COVID-19 11/10/2022 11/10/2022 11/11/2022 12:17 [...] Total Score: 9 06/25/20 20 7:04 AM DESCRIPTIVE CATALOG LIBRARIAN documented as of this encounter Care Teams Bi Technical Lead Relationship Specialty Start Date End Date Marija Edgar APRN CURRICULUM DIRECTOR PCP - General Nurse Practitioner 04/30/20 04/14/23 Esha Grimm PA-C [address] [place] [phone] PCP - General Family Medicine 05/04/23 Lita Oseguera Personal Advocate & Liaison (PAL) 02/28/20 03/27/23 Chanelle Mccann APRN CNM [address] [place] [address] Assigned OBGYN Provider 05/02/2005/09 Kyara De La Fuente, RN Specialty Search Optimization Analyst Neurology 06/04/20 03/05/21 Marija Edgar APRN CURRICULUM DIRECTOR Assigned PCP 06/08/20 04/29/23 Mynor Broussard MD [address] [place] [address] Assigned Surgical Provider 06/01/20 11/28/21 Keisha Dotson MD [address] [place], [place] [phone] Assigned Neuroscience Provider 06/04/20 04/01/23 Stacey Briones, [facility] Lead Search Optimization Analyst Primary Care - CC 08/11/2012/30 Lesley [...] Diana Desir, [facility] [address] [place] [address] Pharmacist Pharmacist 04/17/21 Rain Galaviz PA-C [address] [place] [address] [place] [address] Physician Skiver Machine Operator Dermatology 04/28/21 Summer Lara MD [address] [place] [address] Assigned OBGYN Provider 05/10/2105/23 Summer Lara MD [address] [place] [address] Assigned OBGYN Provider 05/31/21 Summer Lara MD [address] [place] [address] Assigned OBGYN Provider 05/24/2105/30 Tavia Wyatt MD [address] [place] [address] [phone] Dermatology 07/14/21 Johnny Murillo MD [facility] [place] [address] Assigned Musculoskeletal Provider 08/30/21 03/17/22 Erica Farrell APRN CURRICULUM DIRECTOR [address] [facility] [address] [place] [address] Nurse Practitioner Cardiovascular Disease 09/09/21 Teresita Bean [facility] [address] [place] [address] Pharmacist Pharmacist 09/24/21 09/29/21 Tavia Wyatt MD [address] [place] [address] Assigned Surgical Provider 11/29/21 05/07/22 Diana Desir, [facility] [address] [place] [address] Assigned MTM Pharmacist 01/02/22 Rich Barrett MD [address] [place] [address] Physician Ophthalmology 01/21/22 Neil Kent MD [address] [place] [address] Dermatology 02/24/22 Roney Story DPM [address] [facility] [address] [place] [address] Assigned Musculoskeletal Provider 03/20/22 08/13/22 Erica Farrell APRN CURRICULUM DIRECTOR [address] [place] [address] Assigned Heart and Vascular Provider 04/03/22 04/16/22 Diana Desir, [facility] [address] [place] [address] Assigned MTM Pharmacist 04/07/22 Jelena David OD [address] [facility] [address] Assigned Surgical Provider 05/08/22 10/08/22 Galo Burrell MD Assigned Heart and Vascular Provider 04/17/22 06/11/22 Livan Sharif MD [address] [place] [address] Cardiovascular Disease 05/14/22 Livan Sharif MD [address] [place] [address] Assigned Heart and Vascular Provider 06/12/22 07/23/22 Catherine mC MD [address] [place] [address] Cardiovascular Disease 07/21/22 Valery Veronica, PAUcheC [address] [place] [address] 434015 Physician Skiver Machine Operator Dermatology 07/21/22 Catherine Cm MD [address] [place] [address] Assigned Heart and Vascular Provider 07/24/22 11/05/22 Johnny Murillo MD [address] [place] [address] [phone] Assigned Musculoskeletal Provider 08/14/22 10/08/22 Brea Quinn APRN CURRICULUM DIRECTOR [address] [place] [address] [phone] Nurse Practitioner Dermatology 09/21/22 Brea Quinn APRN CURRICULUM DIRECTOR [address] [place] [address] [place] 821992 Assigned Surgical Provider 10/09/22 05/01/24 [place] [address] [address] [facility] [address] [place] [address] Assigned Musculoskeletal Provider 10/09/22 05/01/24 Livan Sharif MD [address] [place] [phone] Assigned Heart and Vascular Provider 11/06/22 11/12/22 Catherine Cm MD [address] [place] [address] Assigned Heart and Vascular Provider 11/13/22 05/27/23 Sydnie Martinez RN Personal Advocate & Liaison (PAL) Family Medicine 03/28/23 07/31/23 Alfonso Renteria MD [address] [facility] [address] [place] [address] Assigned Neuroscience Provider 04/02/23 09/29/24 Cheng Todd PA-C [address] [place] [address] [phone] Assigned PCP 04/30/23 07/15/23 Radha Lomeli APRN CURRICULUM DIRECTOR [address] [place] [address] Assigned Heart and Vascular Provider 05/28/23 11/29/24 Jelena David OD [address] [facility] [place] [address] MD Ophthalmology 06/15/23 Pao Joseph, RN Personal Advocate & Liaison (PAL) Nurse 08/01/23 11/07/23 Esha Grimm PA-C [address] [place] [phone] Assigned PCP 07/16/23 Valery Veronica PA-C [address] [place] [address] 240365 Physician Skiver Machine Operator Dermatology 09/19/23 Rey Tay MD [address] [place] [address] 199495 MD Gastroenterology 09/20/23 Rocky Zepeda DO [address] [place] [address] [phone] Physician Gastroenterology 09/20/23 Philip Dumont MD [address] [place] [address] 667695 Physician Ophthalmology 09/22/23 Meredith Carrera PA-C [address] [place] [address] [phone] Assigned Gastroenterology Provider 11/01/23 Neil Kent MD [address] [place] [address] [phone] Dermatology 11/02/23 [place] [address] [place] [address] Neurological Surgery 12/26/23 Audrey Waite PA-C [address] [place] [address] Physician Skiver Machine Operator Dermatology 02/28/24 Valery Veronica PA-C [id number] [place] [address] Physician Skiver Machine Operator Dermatology 04/10/24 Herminia Hatch MD [address] [place] [address] Assigned Rheumatology Provider 07/02/24 Jelena David OD [address] [place] [address] [place] [address] Ophthalmology 08/30/24 [place] [address] [place] [address] Assigned Neuroscience Provider 09/30/24 Maru Man PA-C [address] [place] [address] Physician Skiver Machine Operator Dermatology 10/03/24 Maru Man PA-C [address] [place] [address] Physician Skiver Machine Operator Dermatology 10/22/24 Jelena David OD [address] [place] [address] [place] [address] Assigned Surgical Provider 10/31/24 Fabiano Correa, TRAVEL PTA [address] [place] [address] Assigned Heart and Vascular Provider 11/30/24 documented as of this encounter
--- OUTSIDE RECORDS SUMMARY | 2024-12-17 21:37 | XMS_ITS | Encounter Summary ---
Author Organization [facility] Address [address] [place] [address] Care Team Providers Care Business Banking Sales Assistant Name Role Phone Lita Oseguera Unavailable Unavailable Marija Edgar APRN DIRECTOR OF SECURITY Primary Care Provider + Chanelle Mccann APRN CNM Unavailab le Kyara De La Fuente RN Unavailable [phone] Marija Egdar APRN DIRECTOR OF SECURITY Unavailable [phone] Mynor Broussard MD Unavailable [phone] Keisha Dotson MD Unavailable Stacey Briones HANDBAG OPERATOR Unavailable Lesley Guillermo CHW Unavailable Mary Mejia Unavailable Unavailable Lita Oseguera Unavailable Unavailable Galo Burrell MD Unavailable Unavailable Cristina Wood Unavailable Lesley Guillermo CHW Unavailable Meredith Bedoya Unavailable Unavailable Cristina Wood Unavailable Diana Desir [facility] Unavailable [phone] Rain Galaviz PA-C Unavailable [phone] Summer Lara MD Unavailable [phone] Summer Lara MD Unavailable [phone] Summer Lara MD Unavailable [phone] Tavia Wyatt MD Unavailable [phone] Johnny Murillo MD Unavailable [phone] Erica Farrell MILLER HEAD DIRECTOR OF SECURITY Unavailable Vikas Teresitakaren Watson [facility] Unavailable Tavia Wyatt MD Unavailable [phone] Diana Desir [facility] Unavailable [phone] Rich Barrett MD Unavailable Neil Kent MD Unavailable Roney StoryM Unavailable Erica Farrell MILLER HEAD DIRECTOR OF SECURITY Unavailable Diana Desir [facility] Unavailable [phone] Jelena David OD Unavailable [phone] Galo Burrell MD Unavailable Unavailable Livan Sharif MD Unavailable Livan Sharif MD Unavailable Catherine Cm MD Unavailable + Valery Veronica PA-C Unavailable [phone] Catherine Cm MD Unavailable + Johnny Murillo MD Unavailable +[phone] Brea Quinn APRN DIRECTOR OF SECURITY Unavailable [phone] Brea Quinn APRN DIRECTOR OF SECURITY Unavailable [phone] Jose Francisco Johnson MD Unavailable Livan Sharif MD Unavailable + Catherine Cm MD Unavailable + Sydnie Martinez RN Unavailable Unavailable Alfonso Renteria MD Unavailable [phone] Esha Grimm PA-C Primary Care Provider Perez Chengjc Fish PA-C Unavailable ArmaniRadha APRPhani GRANADOS Unavailable Jelena David OD Unavailable Pao Joseph RN Unavailable Unavailable Esha Grimm PA-C Unavailable [phone] Valery Veronica PA-C Unavailable Rey Tay MD Unavailable Rocky Zepeda DO Unavailable Philip Dumont MD Unavailable Meredith Carrera PA-C Unavailable [phone] Neil Kent MD Unavailable Juan Pablo Emmanuel MD Unavailable Audrey Waite PA-C Unavailable Valery Veronica PA-C Unavailable Herminia Hatch MD Unavailable Jelena David OD Unavailable Juan Pablo Emmanuel MD Unavailable Maru Man PA-C Unavailable Maru Man PA-C Unavailable [phone] Jelena David OD Unavailable Fabiano Correa NP Unavailable Reason for Visit * Reason Onset Date Comments Patient/info Update 08/31/2020 appointment request Encounter Details Date Type Department Care Team (Late st Contact Info) Description 08/31/2020 MyC Medical Advice [address] [address] Marija Edgar APRN [facility] [address] [place] [address] Patient/info Update (appointment request ) Social [...] you attend chur ch or yazdanism services? More than 4 times [...] Date Recorded PHQ-2 Score 0 08/12/2020 [facility] - Occupational Stress Questionnaire [...] PM CDT Legal Sex Female 4:13 AM REFINERY OPERATOR HELPER Gender Identity Female 03/02/2021 5:45 PM CDT Sexual Orientation Straight 02/28/2020 12 :51 AM CDT COVID-19 Exposure Response Date Recorded In the last month, have you been in contact with someone who was confirmed or suspected to have Coronavirus / COVID-19? No / Unsure 09/03/2020 12:11 PM REFINERY OPERATOR HELPER documented as of this encounter Miscellaneous Notes * Telephone Encounter - Maryjane Mccallum RN - 09/01/2020 7:21 AM REFINERY OPERATOR HELPER Patient sent message requesting office visit [...] Office Visit with Marija Edgar APRN CNP [facility] [address] [place] [phone] Maryjane Mccallum Registered Nurse [facility] NERY OPERATOR HELPER documented in this encounter Plan of Treatment Upcoming Encounters Date Type Department Care Team (Late st Contact Info) Description 12/19/2024 2:00 PM CDT Office Visit [facility] [address] [place] [address] Lauren Claudio PA-C [address] [place] [address] 12/26/2024 7:30 AM CDT Office Visit [facility] [address] [phone] Neil Kent MD [address] [place] [address] 04/16/2025 11:00 AM CDT Virtual Visit [facility] [place] [address] [place] [address] 4th [place] [phone] Meredith Carrera PA-C [address] [place] [address] [phone] documented as of this encounter Visit Diagnoses Not on filedocumented in this encounter Additional Health Concerns Infection Onset Date Last Indicated Resolved Time Rule Out COVID-19 09/24/2020 09/24/2020 09/24/2020 9:24 AM CDT Rule Out COVID-19 11/05/2020 11/05/2020 11/06/2020 1:09 PM CDT Rule Out COVID-19 05/11/2021 05/11/2021 05/13/2021 10:18 AM CDT Rule Out COVID-19 07/13/2021 07/13/2021 07/14/2021 3:04 PM REFINERY OPERATOR HELPER Rule Out COVID-19 07/18/2021 07/18/2021 07/20/2021 1:56 PM REFINERY OPERATOR HELPER COVID-19 07/18/2021 07/18/2021 08/08/2021 11:3 9 PM REFINERY OPERATOR HELPER Rule Out COVID-19 12/18/2021 12/18/2021 12/19/2021 11:34 AM CDT Rule Out COVID-19 02/24/2022 02/24/2022 02/25/2022 1:08 PM CDT Rule Out COVID-19 04/26/2022 04/26/2022 04/26/2022 6:47 AM CDT Rule Out COVID-19 05/17/2022 05/17/2022 05/17/2022 10:20 PM REFINERY OPERATOR HELPER Rule Out COVID-19 06/09/2022 06/09/2022 06/09/2022 9:35 AM REFINERY OPERATOR HELPER COVID-19 06/09/2022 06/09/2022 06/30/2022 11:4 1 PM REFINERY OPERATOR HELPER Rule Out COVID-19 11/10/2022 11/10/2022 [...] Total Score: 9 06/25/20 20 7:04 AM REFINERY OPERATOR HELPER documented as of this encounter Care Teams Business Banking Sales Assistant Relationship Specialty Start Date End Date Marija Edgar APRN DIRECTOR OF SECURITY PCP - General Nurse Practitioner 04/30/20 04/14/23 Esha Grimm PA-C [address] [place] [phone] PCP - General Family Medicine 05/04/23 Lita Oseguera Personal Advocate & Liaison (PAL) 02/28/20 03/27/23 Chanelle Mccann APRN CNM [address] [place], [address] [place] [address] Assigned OBGYN Provider 05/02/2005/09 Kyara De La Fuente, RN Specialty Sharepoint Admin Neurology 06/04/20 03/05/21 Marija Edgar APRN DIRECTOR OF SECURITY Assigned PCP 06/08/20 04/29/23 Mynro Broussard MD [address] [facility] [place] 500 [place] [address] Assigned Surgical Provider 06/01/20 11/28/21 Keisha Dotson MD 909 [place], [place] 767435 Assigned Neuroscience Provider 06/04/20 04/01/23 Stacey Briones, [facility] Lead Sharepoint Admin Primary Care - CC 08/11/2012/30 Lesley Guillermo, W Community Health Worker 08/11/2010/01 Mary Mejia Financial Resource Worker 09/02/20 10/06/20 Lita Oseguera Personal Advocate & Liaison (PAL) Family Medicine 09/10/20 09/21/20 Galo Burrell MD Assigned Heart and Vascular Provider 10/05/20 04/02/22 Cristina Wood Financial Resource Worker 10/07/20 10/14/20 Lesley Guillermo, [facility] Community Health Worker 10/23/2012/30 Meredith Bedoya Financial Resource Worker 10/23/20 11/23/20 Cristina Wood Financial Resource Worker 02/09/21 02/09/21 Diana Desir, [facility] [address] [facility] [address] Pharmacist Pharmacist 04/17/21 Rain Galaviz PA-C [address] [place] [address] [place] [address] Physician Revenue Agent Dermatology 04/28/21 Summer Lara MD [address] [facility] [place] [address] Assigned OBGYN Provider 05/10/2105/23 Summer Lara MD [address] [place] [address] Assigned OBGYN Provider 05/31/21 Summer Lara MD [address] [place] [address] Assigned OBGYN Provider 05/24/2105/30 Tavia Wyatt MD [address] [place] [address] Dermatology 07/14/21 Johnny Murillo MD [address] [facility] [address] [place] [address] Assigned Musculoskeletal Provider 08/30/21 03/17/22 Erica Farrell APRN DIRECTOR OF SECURITY [address] [facility] [address] [place] [address] Nurse Practitioner Cardiovascular Disease 09/09/21 Teresita Bean [facility] [address] [facility] [place] [address] Pharmacist Pharmacist 09/24/21 09/29/21 Tavia Wyatt MD [address] [place] [address] Assigned Surgical Provider 11/29/21 05/07/22 Diana Desir [facility] [address] [email or web address] [address] Assigned MTM Pharmacist 01/02/22 Rich Barrett MD [address] [email or web address] [address] Physician Ophthalmology 01/21/22 Neil Kent MD 500 [place] [address] Dermatology 02/24/22 Roney Story DPM [address] [facility] 300 [place] [address] Assigned Musculoskeletal Provider 03/20/22 08/13/22 Erica Farrell APRN DIRECTOR OF SECURITY 1700 [place] [address] Assigned Heart and Vascular Provider 04/03/22 04/16/22 Diana Desir [facility] 303 [place] [address] Assigned MTM Pharmacist 04/07/22 Jelena David OD [address] [facility] [place] [address] Assigned Surgical Provider 05/08/22 10/08/22 Galo Burrell MD Assigned Heart and Vascular Provider 04/17/22 06/11/22 Livan Sharif MD [address] [place] [address] [place] 8[address]225 Cardiovascular Disease 05/14/22 Livan Sharif MD [address] [place] [address] [place] 662155 Assigned Heart and Vascular Provider 06/12/22 07/23/22 Catherine Cm MD [address] [place] [address] [place] 293135 Cardiovascular Disease 07/21/22 Valery Veronica PAUcheC 909 [place], [place] 372245 Physician Revenue Agent Dermatology 07/21/22 Catherine Cm MD [address] [place] [address] [place] 194105 Assigned Heart and Vascular Provider 07/24/22 11/05/22 Johnny Murillo MD [facility] [facility] [address] [place] [address] 681304 Assigned Musculoskeletal Provider 08/14/22 10/08/22 Brea Quinn APRN DIRECTOR OF SECURITY [address] [place] [address] Nurse Practitioner Dermatology 09/21/22 Brea Quinn APRN DIRECTOR OF SECURITY 6401 [place] [address] Assigned Surgical Provider 10/09/22 05/01/24 [place] [address] [address] Assigned Musculoskeletal Provider 10/09/22 05/01/24 Livan Sharif MD [address] [facility] [address] [place] [address] Assigned Heart and Vascular Provider 11/06/22 11/12/22 Catherine Cm MD 6[address] [facility] [address] [place] [address] Assigned Heart and Vascular Provider 11/13/22 05/27/23 Sydnie Martinez RN Personal Advocate & Liaison (PAL) Family Medicine 03/28/23 07/31/23 Alfonso Renteria MD 5775 [facility] 200 [place], [place] 997926 Assigned Neuroscience Provider 04/02/23 09/29/24 Cheng Todd PA-C [address] [place] [address] Assigned PCP 04/30/23 07/15/23 Radha Lomeli APRN DIRECTOR OF SECURITY 6405 [facility] [address] [address] [place] [address] Assigned Heart and Vascular Provider 05/28/23 11/29/24 Jelena David OD [address] [facility] [place] [address] MD Ophthalmology 06/15/23 Pao Joseph, VJ Personal Advocate & Liaison (PAL) Nurse 08/01/23 11/07/23 Esha Grimm PA-C [address] [place] [phone] Assigned PCP 07/16/23 Valery Veronica PA-C [address] [place] [address] 781425 Physician Revenue Agent Dermatology 09/19/23 Rey Tay MD [address] [place] [address] 445245 MD Gastroenterology 09/20/23 Rocky Zepeda DO [address] [place] [address] 524985 Physician Gastroenterology 09/20/23 Philip Dumont MD [address] [place] [address] 547825 Physician Ophthalmology 09/22/23 Meredith Carrera PA-C [address] [place] [address] 679055 Assigned Gastroenterology Provider 11/01/23 Neil Kent MD [address] [place] [address] MD Dermatology 11/02/23 [place] [address] [place] [address] Neurological Surgery 12/26/23 Audrey Waite PA-C 500 [place] [address] Physician Revenue Agent Dermatology 02/28/24 Valery Veronica PA-C 291190 [address], [place] [address] Physician Revenue Agent Dermatology 04/10/24 Herminia Hatch MD [address] [place] [address] [id number] Assigned Rheumatology Provider 07/02/24 Jelena David OD [address] [place] [address] [place] [address] Ophthalmology 08/30/24 [place] [address] [place] [address] Assigned Neuroscience Provider 09/30/24 Maru Man PA-C [address] [place] [address] Physician Revenue Agent Dermatology 10/03/24 Maru Man PA-C [address] [place] [address] Physician Revenue Agent Dermatology 10/22/24 Jelena David OD [address] [facility] [place] [address] Assigned Surgical Provider 10/31/24 Fabiano Correa NP [address] [place] [address] Assigned Heart and Vascular Provider 11/30/24 documented as of this encounter
--- OUTSIDE RECORDS SUMMARY | 2024-12-17 21:38 | XMS_ITS | Patient Health Record ---
Author Organization [facility] Address [address] [facility] 550 [place] [address] Care Team Providers Care Hotel Or Motel Manager Name Role Phone Romario ACEVEDO, Yanely Unavailable [phone] Reason For Referral No Information Plan Of Treatment No Information Insurance Providers Payer Name Payer Address Payer Phone Subscriber Number Group Number Insured Name Patient Relationship to Insured Coverage Start Date Coverage End Date [facility] [address] [address] [place] [address] [id number] Austin Johnson Child - Insured has Financial Responsibility 7
--- OUTSIDE RECORDS SUMMARY | 2024-12-17 21:38 | XMS_ITS | Encounter Summary ---
Author Organization [facility] Address [address] [place] [address] Care Team Providers Care Secretary Of State Name Role Phone Mariaj Edgar APRN EMERGENCY MEDICINE NURSE PRACTITIONER Primary Care Provider + Marija Edgar APRN EMERGENCY MEDICINE NURSE PRACTITIONER Unavailable Keisha Dotson MD Unavailable Diana Desir [facility] Unavailable [phone] Rain Galaviz PA-C Unavailable Tavia Wyatt MD Unavailable Erica Farrell APRN EMERGENCY MEDICINE NURSE PRACTITIONER Unavailable Rich Barrett MD Unavailable [phone] Neil Kent MD Unavailable Diana Desir [facility] Unavailable Livan Sharif MD Unavailable Catherine Cm MD Unavailable + Valery Veronica PA-C Unavailable [phone] Brea Quinn APRN EMERGENCY MEDICINE NURSE PRACTITIONER Unavailable [phone] Brea Quinn BROADCAST PROGRAM DIRECTOR EMERGENCY MEDICINE NURSE PRACTITIONER Unavailable Jose Francisco Johnson MD Unavailable Catherine Cm MD Unavailable + Sydnie Martinez RN Unavailable Unavailable Alfonso Renteria MD Unavailable [phone] Esha Grimm PA-C Primary Care Provider Cheng Todd PA-C Unavailable Radha Lomeli APRN, CNP Unavailable Jelena David OD Unavailable Pao Joseph RN Unavailable Unavailable Esha Grimm PA-C Unavailable [phone] JeremíasValery damon PA-C Unavailable Rey Tay MD Unavailable Rocky Zepeda DO Unavailable Philip Dumont MD Unavailable Meredith Carrera PA-C Unavailable Neil Kent MD Unavailable Juan Pablo Emmanuel MD Unavailable Audrey Waite PA-C Unavailable Valery Veronica PA-C Unavailable Herminia Hatch MD Unavailable Jelena David OD Unavailable Juan Pablo Emmanuel MD Unavailable Maru Man PA-C Unavailable [phone] Maru Man PA-C Unavailable [phone] Jelena David OD Unavailable [phone] Fabiano Correa NP Unavailable [phone] Encounter Details Date Type Department Care Team (Late st Contact Info) Description 03/29/2023 MyC Medical Advice [address] [address] Diana Desir, [facility] [address] [place] [address] Social History Tobacco Use Types Packs/Day Years [...] you attend [facility] or islam services? 1 to 4 [...] Answer Date Recorded PHQ-2 Score 0 03/10/2023 [facility] of Occupat ional [...] a long term (including now)? No 03/10/2023 Welch Depression Scale Answer Date Recorded Welch [...] CDT Legal Sex Female 4:13 AM BUSINESS SUPPORT PROFESSIONAL Gender Identity Female 03/02/2021 5:45 PM [...] 2:00 PM CDT Office Visit [facility] [address] [place] [phone] Lauren Claudio PA-C [address] [place] [address] 12/26/2024 7:30 AM CDT Office Visit [facility] [address] [phone] Neil Kent MD [address] [place] [address] 801245 04/16/2025 11:00 AM CDT Virtual Visit [facility] Gastro[facility]ology Clinic [address] 4th [place] [address] Meredith Carrera PA-C [address] [place] [address] 686245 documented as of this encounter Visit Diagnoses [...] as of this encounter Care Teams Secretary Of State Relationship Specialty Start Date End Date Marija Edgar APRN EMERGENCY MEDICINE NURSE PRACTITIONER PCP - General Nurse Practitioner 04/30/20 04/14/23 Esha Grimm PA-C [address] [place] [phone] PCP - General Family Medicine 05/04/23 Marija Edgar APRN EMERGENCY MEDICINE NURSE PRACTITIONER Assigned PCP 06/08/20 04/29/23 Keisha Dotson MD 909 [place], [place] 204415 Assigned Neuroscience Provider 06/04/20 04/01/23 Diana Desir [facility] [address] [place], [place] [phone] Pharmacist Pharmacist 04/17/21 Rain Galaviz PA-C [address] [place] [address] [address] [place] [address] Physician Lan Specialist Dermatology 04/28/21 Tavia Wyatt MD [address] [place] [address] [address] [place] [address] Dermatology 07/14/21 Erica Farrell APRN EMERGENCY MEDICINE NURSE PRACTITIONER [address] [place] [address]64[address] Nurse Practitioner Cardiovascular Disease 09/09/21 Rich Barrett MD [address] [place] 0860[address] Physician Ophthalmology 01/21/22 Neil Kent MD 500 [place], [place] 413855 Dermatology 02/24/22 Dinaa Desir, [facility] [address] [place], [place] 367856 Assigned MTM Pharmacist 04/07/22 Livan Sharif MD [address] [address] [place] [address] Cardiovascular Disease 05/14/22 Catherine Cm MD [address] [place] [address] [place] 732645 Cardiovascular Disease 07/21/22 Valery Veronica PA-C 909 [place] [address] Physician Lan Specialist Dermatology 07/21/22 Brea Quinn APRN EMERGENCY MEDICINE NURSE PRACTITIONER 500 [place] [address] Nurse Practitioner Dermatology 09/21/22 Brea Quinn APRN EMERGENCY MEDICINE NURSE PRACTITIONER 6401 [place], [place] 091302 Assigned Surgical Provider 10/09/22 05/01/24 [place] [address] [facility] 300 [place], [place] 058857 Assigned Musculoskeletal Provider 10/09/22 05/01/24 Catherine Cm MD 6405 [facility] [address] [place], [place] 679105 Assigned Heart and Vascular Provider 11/13/22 05/27/23 Sydnie Martinez RN Personal Advocate & Liaison (PAL) Family Medicine 03/28/23 07/31/23 Alfonso Renteria MD 5775 [facility] 200 [place], [place] 421856 Assigned Neuroscience Provider 04/02/23 09/29/24 Cheng Todd PA-C [address] [place] [address] Assigned PCP 04/30/23 07/15/23 Radha Lomeli APRN EMERGENCY MEDICINE NURSE PRACTITIONER [address] [place] [address] Assigned Heart and Vascular Provider 05/28/23 11/29/24 Jelena David OD [address] [facility] [place] [address] MD Ophthalmology 06/15/23 Pao Joseph, VJ Personal Advocate & Liaison (PAL) Nurse 08/01/23 11/07/23 Esha Grimm PA-C [address] [place] [address] Assigned PCP 07/16/23 Valery Veronica PA-C [address] [place] [address] 559155 Physician Lan Specialist Dermatology 09/19/23 Rey Tay MD [address] [place] [address] 502275 Gastroenterology 09/20/23 Rocky Zepeda DO [address] [place] [address] 416235 Physician Gastroenterology 09/20/23 Philip Dumont MD [address] [place] [address] 025815 Physician Ophthalmology 09/22/23 Meredith Carrera PA-C [address] [place] [address] Assigned Gastroenterology Provider 11/01/23 Neil Kent MD [address] [place] [address] Dermatology 11/02/23 [place] [address] [place] [address] Neurological Surgery 12/26/23 Audrey Waite PA-C 500 [place] [address] Physician Lan Specialist Dermatology 02/28/24 Valery Veronica PA-C 027110 [place] [address] Physician Lan Specialist Dermatology 04/10/24 Herminia Hatch MD [address] [place] [address] Assigned Rheumatology Provider 07/02/24 Jelena David OD [address] [place] [address] [place] [address] Ophthalmology 08/30/24 [place] [address] [place] [address] Assigned Neuroscience Provider 09/30/24 Maru Man PA-C [address] [place] [address] Physician Lan Specialist Dermatology 10/03/24 Maru Man PA-C [address] [place] [address] Physician Lan Specialist Dermatology 10/22/24 Jelena David OD 3305 [facility] [place] [address] Assigned Surgical Provider 10/31/24 Fabiano Correa NP [address]405 [place] [address] Assigned Heart and Vascular Provider 11/30/24 documented as of this encounter
--- OUTSIDE RECORDS SUMMARY | 2024-12-17 21:38 | XMS_ITS | Encounter Summary ---
Author Organization [facility] Address [address] [place] [address] Care Team Providers Care Residential Instructor Name Role Phone Lita Oseguera Unavailable Unavailable Marija Edgar APRN EXPERIENCE SPECIALIST Primary Care Provider + Chanelle Mccann APRN CNM Unavailab le Kyara De La Fuente RN Unavailable [phone] Marija Edgar APRN EXPERIENCE SPECIALIST Unavailable [phone] Mynor Broussard MD Unavailable [phone] Keisha Dotson MD Unavailable Mary Mejia Unavailable Unavailable Stacey Briones HIMS MANAGER Unavailable [phone] Lesley Guillermo CHW Unavailable Mary Mejia Unavailable Unavailable Lita Oseguera Unavailable Unavailable Galo Burrell MD Unavailable Unavailable Cristina Wood Unavailable Lesley Guillermo CHW Unavailable Meredith Bedoya Unavailable Unavailable Cristina Wood Unavailable Diana Desir [facility] Unavailable Ruhland, Rain Lena PA-C Unavailable Summer Lara MD Unavailable [phone] Summer Lara MD Unavailable [phone] Summer Lara MD Unavailable Tavia Wyatt MD Unavailable [phone] Johnny Murillo MD Unavailable [phone] Erica Farrell APRN EXPERIENCE SPECIALIST Unavailable VikasTeresita H Unavailable Tavia Wyatt MD Unavailable [phone] Diana Desir [facility] Unavailable [phone] Rich Barrett MD Unavailable [phone] Neil Kent MD Unavailable Roney Story [facility] Unavailable Erica Farrell APRN EXPERIENCE SPECIALIST Unavailable Diana Desir [facility] Unavailable [phone] Jelena David OD Unavailable Galo Burrell MD Unavailable Unavailable Livan Sharif MD Unavailable Livan Sharif MD Unavailable Catherine Cm MD Unavailable + Valery Veronica PA-C Unavailable [phone] Catherine Cm MD Unavailable + Johnny Murillo MD Unavailable [phone] Brea Quinn APRN EXPERIENCE SPECIALIST Unavailable [phone] Brea Quinn [employer] EXPERIENCE SPECIALIST Unavailable [phone] Jose Francisco Johnson MD Unavailable Livan Sharif MD Unavailable Catherine Cm MD Unavailable + Sydnie Martinez RN Unavailable Unavailable Alfonso Renteria MD Unavailable [phone] Esha Grimm PA-C Primary Care Provider Cheng Todd PA-C Unavailable Radha Lomeli APRN, CNP Unavailable Jelena David OD Unavailable Pao Joseph RN Unavailable Unavailable Esha Grimm PA-C Unavailable [phone] Valery Veronica PA-C Unavailable Rey Tay MD Unavailable Rocky Zepeda DO Unavailable Philip Dumont MD Unavailable Meredith Carrera PA-C Unavailable Neil Kent MD Unavailable Juan Pablo Emmanuel MD Unavailable Audrey Waite PA-C Unavailable Valery Veronica PA-C Unavailable Herminia Hatch MD Unavailable Jelena David OD Unavailable [phone] Juan Pablo Emmanuel MD Unavailable Maru Man PA-C Unavailable Maru Man PA-C Unavailable Jelena David OD Unavailable Fabiano Correa NP Unavailable Encounter Details Date Type Department Care Team (Late st Contact Info) Description 07/29/2020 MyC Medical Advice M [facility] Epilepsy [facility] [address], [address] [place] [phone] Keisha Dotson MD [address] [place] [address] Social History Tobacco Use Types Packs/Day Years [...] PM CDT Legal Sex Female 4:13 AM CASER IN Gender Identity Female 03/02/2021 5:45 PM CDT Sexual Orientation Straight 02/28/2020 12 :51 AM CDT COVID-19 Exposure Response Date Recorded In the last month, have you been in contact with someone who was confirmed or suspected to have Coronavirus / COVID-19? No / Unsure 07/30/2020 4:53 PM CASER IN documented as of this encounter Plan of Treatment Upcoming Encounters Date Type Department Care Team (Late Contact Info) Description 12/19/2024 2:00 PM CDT Office Visit [facility] [id number] [place] [phone] Lauren Claudio PA-C [address] [place] [address] 12/26/2024 7:30 AM CDT Office Visit [facility] [address] [address] Neil Kent MD [address] [place] [address] 04/16/2025 11:00 AM CDT Virtual Visit [facility] Gastroenterology [address] 4th [place] [phone] Meredith Carrera PA-C [address] [place] [address] documented as of this encounter Visit Diagnoses Not on filedocumented in this encounter Additional Health Concerns Infection Onset Date Last Indicated Resolved Time Rule Out COVID-19 07/30/2020 07/30/2020 07/30/2020 7:11 PM CASER IN Rule Out COVID-19 08/30/2020 08/30/2020 08/30/2020 5:05 PM CASER IN Rule Out COVID-19 09/24/2020 09/24/2020 09/24/2020 9:24 AM CDT Rule Out COVID-19 11/05/2020 11/05/2020 11/06/2020 1:09 PM CDT Rule Out COVID-19 05/11/2021 05/11/2021 05/13/2021 10:18 AM CDT Rule Out COVID-19 07/13/2021 07/13/2021 07/14/2021 3:04 PM CASER IN Rule Out COVID-19 07/18/2021 07/18/2021 07/20/2021 1:56 PM CASER IN COVID-19 07/18/2021 07/18/2021 08/08/2021 11:3 9 PM CASER IN Rule Out COVID-19 12/18/2021 12/18/2021 12/19/2021 11:34 AM CDT Rule Out COVID-19 02/24/2022 02/24/2022 02/25/2022 1:08 PM CDT Rule Out COVID-19 04/26/2022 04/26/2022 04/26/2022 6:47 AM CDT Rule Out COVID-19 05/17/2022 05/17/2022 05/17/2022 10:20 PM CASER IN Rule Out COVID-19 06/09/2022 06/09/2022 06/09/2022 9:35 AM CASER IN COVID-19 06/09/2022 06/09/2022 06/30/2022 11:4 1 PM CASER IN Rule Out COVID-19 11/10/2022 11/10/2022 11/11/2022 12:17 [...] Total Score: 9 06/25/20 20 7:04 AM CASER IN documented as of this encounter Care Teams Residential Instructor Relationship Specialty Start Date End Date Marija Edgar APRN EXPERIENCE SPECIALIST PCP - General Nurse Practitioner 04/30/20 04/14/23 Esha Grimm PA-C [address] [place] [phone] PCP - General Family Medicine 05/04/23 Lita Oseguera Personal Advocate & Liaison (PAL) 02/28/20 03/27/23 Chanelle Mccann APRN CNM [address] [address] Assigned OBGYN Provider 05/02/2005/09 Kyara De La Fuente, RN Specialty Dairy Supplies Sales Representative Neurology 06/04/20 03/05/21 Marija Edgar APRN CNP Assigned PCP 06/08/20 04/29/23 Mynor Broussard MD [address] 524495 Assigned Surgical Provider 06/01/20 11/28/21 Keisha Dotson MD 9 [place], [place] 541195 Assigned Neuroscience Provider 06/04/20 04/01/23 Mary Mejia Financial Resource Worker 08/07/20 08/21/20 Stacey Briones, [facility] Lead Dairy Supplies Sales Representative Primary Care - CC 08/11/2012/30 Lesley Guillermo, [facility] Community Health Worker 08/11/2010/01 Mary Mejia Financial Resource Worker 09/02/20 10/06/20 Lita Oseguera Personal Advocate & Liaison (PAL) Family Medicine 09/10/20 09/21/20 Galo Burrell MD Assigned Heart and Vascular Provider 10/05/20 04/02/22 Cristina Wood Financial Resource Worker 10/07/20 10/14/20 Lesley Guillermo, [facility] Community Health Worker 10/23/2012/30 Meredith Bedoya Financial Resource Worker 10/23/20 11/23/20 Cristina Wood Financial Resource Worker 02/09/21 02/09/21 [facility] [address] [place] [address] Pharmacist Pharmacist 04/17/21 Rain Galaviz PA-C [address] [facility] [place] [address] Physician Feather Shaper Dermatology 04/28/21 Summer Lara MD [address] [place] [address] [place], [place] 968474 Assigned OBGYN Provider 05/10/2105/23 Summer Lara MD [address] [place], [place] 133944 Assigned OBGYN Provider 05/31/21 Summer Lara MD [address] [place] [address] [place], [place] 168364 Assigned OBGYN Provider 05/24/2105/30 Taiva Wyatt MD [address] [place], [place] 162674 Dermatology 07/14/21 Johnny Murillo MD [address] [place] [address] Assigned Musculoskeletal Provider 08/30/21 03/17/22 Erica Farrell APRN EXPERIENCE SPECIALIST 6405 [facility] [address] [place] [address] Nurse Practitioner Cardiovascular Disease 09/09/21 Teresita Bean, [facility] [address] [place] [address] Pharmacist Pharmacist 09/24/21 09/29/21 Tavia Wyatt MD [address] [place] [address] Assigned Surgical Provider 11/29/21 05/07/22 Diana Desir, [facility] [place] [address] Assigned MTM Pharmacist 01/02/22 Rich Barrett MD [facility] [place] [address] Physician Ophthalmology 01/21/22 Neil Kent MD 500 [place], [place] 476435 Dermatology 02/24/22 Roney Story DPM 84774 [facility] [address] [place] [address] Assigned Musculoskeletal Provider 03/20/22 08/13/22 Erica Farrell APRN EXPERIENCE SPECIALIST 1700 [place] [address] Assigned Heart and Vascular Provider 04/03/22 04/16/22 [facility] [place] [address] Assigned MTM Pharmacist 04/07/22 Jelena David OD [address] [facility] [place] [address] Assigned Surgical Provider 05/08/22 10/08/22 Galo Burrell MD Assigned Heart and Vascular Provider 04/17/22 06/11/22 Livan Sharif MD [address] [place] [address] Cardiovascular Disease 05/14/22 Livan Sharif MD [address] [place] [address] Assigned Heart and Vascular Provider 06/12/22 07/23/22 Catherine Cm MD [address] [place] [address] Cardiovascular Disease 07/21/22 Valery Veronica, PA-C [address] [place] [address] Physician Feather Shaper Dermatology 07/21/22 Catherine Cm MD [address] [place] [address] Assigned Heart and Vascular Provider 07/24/22 11/05/22 Johnny Murillo MD [address] [address] Assigned Musculoskeletal Provider 08/14/22 10/08/22 Brea Quinn APRN EXPERIENCE SPECIALIST 500 [facility] [place] [address] Nurse Practitioner Dermatology 09/21/22 Brea Quinn APRN EXPERIENCE SPECIALIST [address] [facility] [place] [address] Assigned Surgical Provider 10/09/22 05/01/24 [place] [address] [place] [address] Assigned Musculoskeletal Provider 10/09/22 05/01/24 Livan Sharif MD [address] [place] [address] Assigned Heart and Vascular Provider 11/06/22 11/12/22 Catherine Cm MD [address] [place] 447845 Assigned Heart and Vascular Provider 11/13/22 05/27/23 Sydnie Martinez, RN Personal Advocate & Liaison (PAL) Family Medicine 03/28/23 07/31/23 Alfonso Renteria MD 5775 [facility] 200 [place] [address] Assigned Neuroscience Provider 04/02/23 09/29/24 Cheng Todd PA-C [address] [place] [address] Assigned PCP 04/30/23 07/15/23 Radha Lomeli APRN EXPERIENCE SPECIALIST [address] [facility] [address] [place] [address] Assigned Heart and Vascular Provider 05/28/23 11/29/24 Jelena David OD [address] [facility] [place] [address] MD Ophthalmology 06/15/23 Pao Joseph, VJ Personal Advocate & Liaison (PAL) Nurse 08/01/23 11/07/23 Esha Grimm PA-C [address] [place] [phone] Assigned PCP 07/16/23 Valery Veronica PA-C [address] [place] [address] 243695 Physician Feather Shaper Dermatology 09/19/23 Rey Tay MD [address] [place] [address] 261515 Gastroenterology 09/20/23 Rocky Zepeda DO [address] [place] [address] 392135 Physician Gastroenterology 09/20/23 Philip Dumont MD [address] [place] [address] 764495 Physician Ophthalmology 09/22/23 Meredith Carrera PA-C [address] [place] [address] 597125 Assigned Gastroenterology Provider 11/01/23 Neil Kent MD [address] [address] Dermatology 11/02/23 [place] [address] [place] [address] Neurological Surgery 12/26/23 Audrey Waite PA-C [address] [place] [address] Physician Feather Shaper Dermatology 02/28/24 Valery Veronica PA-C [address]51 [address] [place] [address] Physician Feather Shaper Dermatology 04/10/24 Herminia Hatch MD [address] [place] [address] Assigned Rheumatology Provider 07/02/24 Jelena David OD [address] [place] [address] [place] [address] Ophthalmology 08/30/24 [place] [address] [place] [address] Assigned Neuroscience Provider 09/30/24 Maru Man PA-C [address] [place] [address] Physician Feather Shaper Dermatology 10/03/24 Maru Man PA-C [address] [place] [address] Physician Feather Shaper Dermatology 10/22/24 Jelena David OD 3[address] [facility] [place] [address] Assigned Surgical Provider 10/31/24 Fabiano Correa NP [address] [place] [address] Assigned Heart and Vascular Provider 11/30/24 documented as of this encounter
--- OUTSIDE RECORDS SUMMARY | 2024-12-17 21:38 | XMS_ITS | Encounter Summary ---
Author Organization [facility] Address [address] [place] [address] Care Team Providers Care Pre Planning Advisor Name Role Phone Lita Oseguera Unavailable Unavailable Marija Edgar APRN RN LIAISON Primary Care Provider + Marija Edgar APRN RN LIAISON Unavailable [phone] Mynor Broussard MD Unavailable [phone] Keisha Dotson MD Unavailable [phone] Galo Burrell MD Unavailable Unavailable Diana Desir [facility] Unavailable Rain Galaviz PA-C Unavailable Summer Lara MD Unavailable [phone] Tavia Wyatt MD Unavailable Johnny Murillo MD Unavailable Erica Farrell APRN RN LIAISON Unavailable Tavia Wyatt MD Unavailable Diana Desir [facility] Unavailable Rich Barrett MD Unavailable [phone] Neil Kent MD Unavailable Roney StoryM Unavailable Erica Farrell APRN RN LIAISON Unavailable Diana Desir [facility] Unavailable Jelena David OD Unavailable Galo Burrell MD Unavailable Unavailable Livan Sharif MD Unavailable Livan Sharif MD Unavailable IsCatherine hobbs MD Unavailable + Valery Veronica PA-C Unavailable [phone] Catherine Cm MD Unavailable + Johnny Murillo MD Unavailable [phone] Brea Quinn FISCAL SERVICES DIRECTOR RN LIAISON Unavailable [phone] Brea Quinn FISCAL SERVICES DIRECTOR RN LIAISON Unavailable [phone] Jose Francisco Johnson MD Unavailable Livan Sharif MD Unavailable + IsCatherine hobbs MD Unavailable + Sydnie Martinez RN Unavailable Unavailable Alfonso Renteria MD Unavailable Esha Grimm PA-C Primary Care Provider Cheng Todd PA-C Unavailable Radha Lomeli FISCAL SERVICES DIRECTOR RN LIAISON Unavailable [phone] Jelena David OD Unavailable Pao Joseph RN Unavailable Unavailable Esha Grimm-C Unavailable Vlaery Veronica PA-C Unavailable [phone] Rey Tay MD Unavailable Rocky Zepeda DO Unavailable Philip Dumont MD Unavailable [phone] Debi Meredith A PA-C Unavailable [phone] Neil Kent MD Unavailable Juan Pablo Emmanuel MD Unavailable [phone] Audrey Waite PA-C Unavailable [phone] Valery Veronica PA-C Unavailable Herminia Hatch MD Unavailable Jelena David OD Unavailable Juan Pablo Emmanuel MD Unavailable [phone] Maru Man-C Unavailable [phone] Maru Man-C Unavailable [phone] Jelena David OD Unavailable Fabiano Correa [employer] HAZMAT DRIVER Unavailable [phone] Encounter Details Date Type Department Care Team (Late st Contact Info) Description 11/04/2021 [facility] Medical Advice [address] [address] Diana Desir, [facility] [address] [place], [place] [phone] Social History Tobacco Use Types Packs/Day Years [...] How often do you attend cheondoism or yazidism serv ices? Never 09/22/2021 Do [...] in a retirement (including now)? No 09/22/2021 [place] Depression Scale Answer Date Recorded [place] Depression Score 5 01/14/2021 Last EPDS Self Harm Result Not on file 01/14 Education Answer Date Recorded What is the highest level of school you have completed or the highest degree you have received? 12th grade 08/07/2020 Comments No Sex and Gender Information Value Date Recorded Sex Assigned at Female 03/02/2021 5:45 PM CDT Legal Sex Female 4:13 AM WEBSITE PROGRAMMER Gender Identity Female 03/02/2021 5:45 PM [...] Encounters Date Type Department Care Team (Taylor st Contact Info) Description 12/19/2024 2:00 PM CDT Office Visit [address] [address] Lauren Claudio PA-C [address] [place] [address] 12/26/2024 7:30 AM CDT Office Visit [facility] [address] [phone] Neil Kent MD [address] [place] [address] 678415 04/16/2025 11:00 AM CDT Virtual Visit [facility] Gastroenterology [facility] [place] [address] [facility] 4th [place] [phone] Meredith Carrera PA-C [address] [place] [address] documented as of this encounter Visit Diagnoses Not on filedocumented in this encounter Additional Health Concerns Infection Onset Date Last Indicated Resolved Time Rule Out COVID-19 12/18/2021 12/18/2021 12/19/2021 11:34 AM CDT Rule Out COVID-19 02/24/2022 02/24/2022 02/25/2022 1:08 PM CDT Rule Out COVID-19 04/26/2022 04/26/2022 04/26/2022 6:47 AM CDT Rule Out COVID-19 05/17/2022 05/17/2022 05/17/2022 10:20 PM WEBSITE PROGRAMMER Rule Out COVID-19 06/09/2022 06/09/2022 06/09/2022 9:35 AM WEBSITE PROGRAMMER COVID-19 06/09/2022 06/09/2022 06/30/2022 11:4 1 PM WEBSITE PROGRAMMER Rule Out COVID-19 11/10/2022 11/10/2022 11/11/2022 [...] documented as of this encounter Care Teams Pre Planning Advisor Relationship Specialty Start Date End Date Marija Edgar APRN RN LIAISON PCP - General Nurse Practitioner 04/30/20 04/14/23 Esha Grimm PA-C [address] [place] [phone] PCP - General Family Medicine 05/04/23 Lita Oseguera Personal Advocate & Liaison (PAL) 02/28/20 03/27/23 Marija Edgar APRN RN LIAISON Assigned PCP 06/08/20 04/29/23 Mynor Broussard MD [address] [address] Assigned Surgical Provider 06/01/20 11/28/21 Keisha Dotson MD 9 [place] [address] Assigned Neuroscience Provider 06/04/20 04/01/23 Galo Burrell MD Assigned Heart and Vascular Provider 10/05/20 04/02/22 Diana Desir, [facility] [address] [place] [address] Pharmacist Pharmacist 04/17/21 Rain Galaviz PA-C [address] [place] [address] [place] [address] Physician Talent Management Specialist Dermatology 04/28/21 Summer Lara MD [address] [place] [address] 598894 Assigned OBGYN Provider 05/31/21 2 Tavia Wyatt MD [address] [place] [address] 633164 Dermatology 07/14/21 Johnny Murillo MD [address] [place], [place] 473474 Assigned Musculoskeletal Provider 08/30/21 03/17/22 Erica Farrell APRN RN LIAISON 6405 [facility] [address] [place], [place] [address] Nurse Practitioner Cardiovascular Disease 09/09/21 Tavia Wyatt MD [address] [place], [place] 367050 Assigned Surgical Provider 11/29/21 05/07/22 Diana Desir, [facility] 3033 [place] [address] Assigned MTM Pharmacist 01/02/22 Rich Barrett MD 3033 [place] [address] Physician Ophthalmology 01/21/22 Neil Kent MD 500 [place], [place] 309375 Dermatology 02/24/22 Roney Story DPM [address] [facility] [address] [place], [place] 495667 Assigned Musculoskeletal Provider 03/20/22 08/13/22 Erica Farrell APRN RN LIAISON 1700 [place] [address] Assigned Heart and Vascular Provider 04/03/22 04/16/22 Diana Desir, [facility] 30[address] [place] [address] Assigned MTM Pharmacist 04/07/22 Jelena David OD [address] [place] [address] Assigned Surgical Provider 05/08/22 10/08/22 Galo Burrell MD Assigned Heart and Vascular Provider 04/17/22 06/11/22 Livan Sharif MD 6405 [facility] [address] [place] 262875 Cardiovascular Disease 05/14/22 Livan Sharif MD 6[address] [facility] [address] [place] [address] Assigned Heart and Vascular Provider 06/12/22 07/23/22 Catherine Cm MD 6405 [facility] [address] [place] [address] Cardiovascular Disease 07/21/22 Valery Veronica, PA-C [address] [place] [address] Physician Talent Management Specialist Dermatology 07/21/22 Catherine Cm MD [address]00 [place] [address] Assigned Heart and Vascular Provider 07/24/22 11/05/22 Johnny Murillo MD [address] [place] [address] 578924 Assigned Musculoskeletal Provider 08/14/22 10/08/22 Brea Quinn APRN RN LIAISON [address] [place] [address] Nurse Practitioner Dermatology 09/21/22 Brea Quinn APRN RN LIAISON [address] [place] [address] [place] [address] Assigned Surgical Provider 10/09/22 05/01/24 [place] [address] [place] [address] Assigned Musculoskeletal Provider 10/09/22 05/01/24 Livan Sharif MD [address] [facility] [address] [place] [address] Assigned Heart and Vascular Provider 11/06/22 11/12/22 Catherine Cm MD [address] [facility] [address] [place] [address] Assigned Heart and Vascular Provider 11/13/22 05/27/23 Sydnie Martinez RN Personal Advocate & Liaison (PAL) Family Medicine 03/28/23 07/31/23 Alfonso Renteria MD 5775 [facility] 200 [place] [address] Assigned Neuroscience Provider 04/02/23 09/29/24 Cheng Todd PA-C [address] [place] [address] Assigned PCP 04/30/23 07/15/23 Radha Lomeli APRN RN LIAISON [address] [place] [address] Assigned Heart and Vascular Provider 05/28/23 11/29/24 Jelena David OD [address] [place] [address] Ophthalmology 06/15/23 Pao Joseph, VJ Personal Advocate & Liaison (PAL) Nurse 08/01/23 11/07/23 Esha Grimm PA-C [address] [place] [phone] Assigned PCP 07/16/23 Valery Veronica PA-C [address] [place] [address] 858325 Physician Talent Management Specialist Dermatology 09/19/23 Rey Tay MD [address] [place] [address] 193595 MD Gastroenterology 09/20/23 Rocky Zepeda DO [address] [place] [address] 036125 Physician Gastroenterology 09/20/23 Philip Dumont MD [address] [place] [address] 564245 Physician Ophthalmology 09/22/23 Meredith Carrera PA-C [address] [place] [address] Assigned Gastroenterology Provider 11/01/23 Neil Kent MD [address] [address] Dermatology 11/02/23 [place] [address] [place] [address] Neurological Surgery 12/26/23 Audrey Waite PA-C [address] [place] [address] Physician Talent Management Specialist Dermatology 02/28/24 Valery Veronica PA-C [address] [place] [address] Physician Talent Management Specialist Dermatology 04/10/24 Herminia Hatch MD [address] [place] [address] [phone] Assigned Rheumatology Provider 07/02/24 Jelena David OD [address] [place] [address] [place] [address] Ophthalmology 08/30/24 [place] [address] [place] [address] Assigned Neuroscience Provider 09/30/24 Maru Man PA-C [address] [place] [address] Physician Talent Management Specialist Dermatology 10/03/24 Maru Man PA-C [address] [place] [address] Physician Talent Management Specialist Dermatology 10/22/24 Jelena David, SONJA [address] [place] [address] [place] [address] Assigned Surgical Provider 10/31/24 Fabiano Correa NP [address] [place] [address] Assigned Heart and Vascular Provider 11/30/24 documented as of this encounter
--- OUTSIDE RECORDS SUMMARY | 2024-12-17 21:38 | XMS_ITS | Encounter Summary ---
Author Organization [facility] Address [address] [place] [address] Care Team Providers Care Laminating Machine Feeder Name Role Phone Lita Oseguera Unavailable Unavailable Marija Edgar APRN COATER OPERATOR INSULATION BOARD Primary Care Provider + Chanelle Mccann APRN CNM Unavailab le Kyara De La Fuente RN Unavailable [phone] Marija Edgar APRN COATER OPERATOR INSULATION BOARD Unavailable [phone] Mynor Broussard MD Unavailable [phone] Keisha Dotson MD Unavailable Mary Mejia Unavailable Unavailable Stacey Briones CUSTOMER LEADER Unavailable Lesley Guillermo CHW Unavailable Mary Mejia Unavailable Unavailable Lita Oseguera Unavailable Unavailable Galo Burrell MD Unavailable Unavailable Cristina Wood Unavailable Lesley Guillermo CHW Unavailable Meredith Bedoya Unavailable Unavailable Cristina Wood Unavailable Diana Desir [facility] Unavailable [phone] [place], Rain Lena PA-C Unavailable Summer Lara MD Unavailable [phone] Summer Lara MD Unavailable [phone] Summer Lara MD Unavailable [phone] Tavia Wyatt MD Unavailable [phone] Johnny Murillo MD Unavailable [phone] Erica Farrell APRN COATER OPERATOR INSULATION BOARD Unavailable VikasTeresita H Unavailable Tavia Wyatt MD Unavailable [phone] Diana Desir [facility] Unavailable [phone] Rich Barrett MD Unavailable [phone] Neil Kent MD Unavailable Roney Story [facility] Unavailable Erica Farrell APRN COATER OPERATOR INSULATION BOARD Unavailable Diana Desir [facility] Unavailable [phone] Jelena David OD Unavailable [phone] Galo Burrell MD Unavailable Unavailable Livan Sharif MD Unavailable Livan Sharif MD Unavailable Catherine Cm MD Unavailable + Valery Veronica PA-C Unavailable [phone] Catherine Cm MD Unavailable + Johnny Murillo MD Unavailable [phone] Brea Quinn APRN COATER OPERATOR INSULATION BOARD Unavailable [phone] Brea Quinn WATER TREATMENT PLANT OPERATOR COATER OPERATOR INSULATION BOARD Unavailable [phone] Jose Francisco Johnson MD Unavailable Livan Sharif MD Unavailable Catherine Cm MD Unavailable + Sydnie Martinez RN Unavailable Unavailable Alfonso Renteria MD Unavailable [phone] Esha Grimm PA-C Primary Care Provider Cheng Todd PA-C Unavailable Radha Lomeli APRN, CNP Unavailable Jelena David OD Unavailable Pao Joseph RN Unavailable Unavailable Esha Grimm PA-C Unavailable [phone] Valery Veronica PA-C Unavailable Rey Tay [...] Team (Late st Contact Info) Description 08/01/2020 [facility] Medical Advice [address] [address] Marija Edgar APRN COATER OPERATOR INSULATION BOARD [address] [place] [phone] Social History Tobacco Use Types Packs/Day Years [...] CDT Legal Sex Female 4:13 AM RETAIL TRAINING MANAGER Gender Identity Female 03/02/2021 5:45 PM CDT Sexual Orientation Straight 02/28/2020 12 :51 AM CDT COVID-19 Exposure Response Date Recorded In the last month, have you been in contact with someone who was confirmed or suspected to have Coronavirus / COVID-19? No / Unsure 07/30/2020 4:53 PM RETAIL TRAINING MANAGER documented as of this encounter Miscellaneous Notes * Telephone Encounter - Estephania Black RN - 08/01/2020 9:11 AM RETAIL TRAINING MANAGER Schedule patient for Zio Patch. Detailed message left on phone and through [facility]. Estephania Black RN Flex [place] TRAINING MANAGER * Telephone Encounter - Marija Edgar APRN CNP - 08/01/2020 8:46 AM RETAIL TRAINING MANAGER Please help patient schedule her zio patch. This order has been in place since 05/2020 and a new order was placed this week. [place] TRAINING MANAGER documented in this encounter Plan of Treatment Upcoming Encounters Date Type Department Care Team (Late st Contact Info) Description 12/19/2024 2:00 PM CDT Office Visit [facility] [address] [place] [address] Lauren Claudio PA-C [address] [place] [address] 12/26/2024 7:30 AM CDT Office Visit [facility] [address] [phone] Neil Kent MD [address] [place] [address] 04/16/2025 11:00 AM CDT Virtual Visit [facility] [place] [address] [place] [address] 4th [place] [phone] Meredith Carrera PA-C [address] [place] [address] 833645 documented as of this encounter Visit Diagnoses Not on filedocumented in this encounter Additional Health Concerns Infection Onset Date Last Indicated Resolved Time Rule Out COVID-19 08/30/2020 08/30/2020 08/30/2020 5:05 PM RETAIL TRAINING MANAGER Rule Out COVID-19 09/24/2020 09/24/2020 09/24/2020 9:24 AM CDT Rule Out COVID-19 11/05/2020 11/05/2020 11/06/2020 1:09 PM CDT Rule Out COVID-19 05/11/2021 05/11/2021 05/13/2021 10:18 AM CDT Rule Out COVID-19 07/13/2021 07/13/2021 07/14/2021 3:04 PM RETAIL TRAINING MANAGER Rule Out COVID-19 07/18/2021 07/18/2021 07/20/2021 1:56 PM RETAIL TRAINING MANAGER COVID-19 07/18/2021 07/18/2021 08/08/2021 11:3 9 PM RETAIL TRAINING MANAGER Rule Out COVID-19 12/18/2021 12/18/202112/1912/19/2021 11:34 AM CDT Rule Out COVID-19 02/24/2022 02/24/2022 02/25/2022 1:08 PM CDT Rule Out COVID-19 04/26/2022 04/26/2022 04/26/2022 6:47 AM CDT Rule Out COVID-19 05/17/2022 05/17/2022 05/17/2022 10:20 PM RETAIL TRAINING MANAGER Rule Out COVID-19 06/09/2022 06/09/2022 06/09/2022 9:35 AM RETAIL TRAINING MANAGER COVID-19 06/09/2022 06/09/2022 06/30/2022 11:4 1 PM RETAIL TRAINING MANAGER Rule Out COVID-19 11/10/2022 11/10/2022 11/11/2022 [...] Score: 9 06/25/20 20 7:04 AM RETAIL TRAINING MANAGER documented as of this encounter Care Teams Laminating Machine Feeder Relationship Specialty Start Date End Date Marija Edgar APRN CNP PCP - General Nurse Practitioner 04/30/20 04/14/23 Esha Grimm PA-C [address] [place] [phone] PCP - General Family Medicine 05/04/23 Lita Oseguera Personal Advocate & Liaison (PAL) 02/28/20 03/27/23 Chanelle Mccann APRN CNM [address] [facility] 200 [place] [address] Assigned OBGYN Provider 05/02/2005/09 Kyara De La Fuente, RN Specialty Aviation Safety Equipment Technician Neurology 06/04/20 03/05/21 Marija Edgar APRN COATER OPERATOR INSULATION BOARD Assigned PCP 06/08/20 04/29/23 Mynor Broussard MD 6363 [facility] 500 [place], [place] 617365 Assigned Surgical Provider 06/01/20 11/28/21 Keisha Dotson MD 909 [place] [address] Assigned Neuroscience Provider 06/04/20 04/01/23 Mary Mejia Financial Resource Worker 08/07/20 08/21/20 Stacey Briones, CUSTOMER LEADER Lead Aviation Safety Equipment Technician Primary Care - CC 08/11/2012/30 Lesley Guillermo, CHW Community Health Worker 08/11/2010/01 Mary Mejia Financial Resource Worker 09/02/20 10/06/20 Lita Oseguera Personal Advocate & Liaison (PAL) Family Medicine 09/10/20 09/21/20 Galo Burrell MD Assigned Heart and Vascular Provider 10/05/20 04/02/22 Cristina Wood Financial Resource Worker 10/07/20 10/14/20 Lesley Guillermo, [facility] Community Health Worker 10/23/2012/30 Meredith Bedoya Financial Resource Worker 10/23/20 11/23/20 Cristina Wood Financial Resource Worker 02/09/21 02/09/21 Diana Desir, [facility]3 [place] [address] Pharmacist Pharmacist 04/17/21 Rain Galaviz PA-C [address] [place] [address] [address] [place], [place] [phone] Physician Tariff Supervisor Dermatology 04/28/21 Summer Lara MD [address] [place] [address] 466564 Assigned OBGYN Provider 05/10/2105/23 Summer Lara MD [address] [place] [address] 059794 Assigned OBGYN Provider 05/31/21 2 Summer Lara MD [address] [place] [address] 649654 Assigned OBGYN Provider 05/24/2105/30 Tavia Wyatt MD [address] [place] [address] 943009 Dermatology 07/14/21 Johnny Murillo MD [address] [facility] [address] [place] [address] Assigned Musculoskeletal Provider 08/30/21 03/17/22 Erica Farrell APRN COATER OPERATOR INSULATION BOARD [address] [facility] [address] [place] [address] Nurse Practitioner Cardiovascular Disease 09/09/21 Teresita Bean, [facility] [address] [facility] [address] [place], [place] [phone] Pharmacist Pharmacist 09/24/21 09/29/21 Tavia Wyatt MD [address] [place] [address] Assigned Surgical Provider 11/29/21 05/07/22 [facility] [address] [place] [address] Assigned MTM Pharmacist 01/02/22 Rich Barrett MD [address] [place] [address] Physician Ophthalmology 01/21/22 Neil Kent MD 500 [place], [place] 084455 Dermatology 02/24/22 Roney Story DPM [address] [facility] 300 [place], [place] [phone] Assigned Musculoskeletal Provider 03/20/22 08/13/22 Erica Farrell APRN COATER OPERATOR INSULATION BOARD 1700 [place] [address] Assigned Heart and Vascular Provider 04/03/22 04/16/22 [facility] 3033 [place] [address] Assigned MTM Pharmacist 04/07/22 Jelena David OD [address] [facility] [place] [address] Assigned Surgical Provider 05/08/22 10/08/22 Galo Burrell MD Assigned Heart and Vascular Provider 04/17/22 06/11/22 Livan Sharif MD [address] [address] [place] [address] Cardiovascular Disease 05/14/22 Livan Sharif MD [address] [place] [address] [place] [address] Assigned Heart and Vascular Provider 06/12/22 07/23/22 Catherine Cm MD [address] [address] [place] 663405 Cardiovascular Disease 07/21/22 Valery Veronica PAUcheC 909 [place] [address] Physician Tariff Supervisor Dermatology 07/21/22 Catherine Cm MD [address] [facility] [address] [place] [address] Assigned Heart and Vascular Provider 07/24/22 11/05/22 Johnny Murillo MD [address] [phone] [place], [place] 959194 Assigned Musculoskeletal Provider 08/14/22 10/08/22 Brea Quinn APRN COATER OPERATOR INSULATION BOARD 500 [place], [place] 212845 Nurse Practitioner Dermatology 09/21/22 Brea Quinn APRN COATER OPERATOR INSULATION BOARD 6401 [facility] [place] 875382 Assigned Surgical Provider 10/09/22 05/01/24 [place] [address] 834517 Assigned Musculoskeletal Provider 10/09/22 05/01/24 Livan Sharif MD [address] [facility] W[address] [place] [address] Assigned Heart and Vascular Provider 11/06/22 11/12/22 Catherine Cm MD [address] [facility] [address] [place] 988685 Assigned Heart and Vascular Provider 11/13/22 05/27/23 Sydnie Martinez RN Personal Advocate & Liaison (PAL) Family Medicine 03/28/23 07/31/23 Alfonso Renteria MD [address] [facility] [address] 200 [place] [address] Assigned Neuroscience Provider 04/02/23 09/29/24 Cheng Todd PA-C [address] [place] [address] Assigned PCP 04/30/23 07/15/23 Radha Lomeli, ARLENE COATER OPERATOR INSULATION BOARD [address] [facility] [address] [place], [place] 594565 Assigned Heart and Vascular Provider 05/28/23 11/29/24 Jelena David OD [address] [facility] [address] [place] [phone] Ophthalmology 06/15/23 Pao Joseph, VJ Personal Advocate & Liaison (PAL) Nurse 08/01/23 11/07/23 Esha Grimm PA-C [address] [place] [address] Assigned PCP 07/16/23 Valery Veronica PA-C [address] [place] [address] Physician Tariff Supervisor Dermatology 09/19/23 Rey Tay MD [address] [place] [address] 392295 Gastroenterology 09/20/23 Rocky Zepeda DO [address] [place] [address] 051665 Physician Gastroenterology 09/20/23 Philip Dumont MD [address] [place] [address] Physician Ophthalmology 09/22/23 Meredith Carrera PA-C [address] [place] [address] Assigned Gastroenterology Provider 11/01/23 Neil Kent MD [address] [address] MD Dermatology 11/02/23 [place] [address] [facility] [place] [address] Neurological Surgery 12/26/23 Audrey Waite PA-C 500 [place], [place] 629025 Physician Tariff Supervisor Dermatology 02/28/24 Valery Veronica PA-C 657640 [place], [place] [address] Physician Tariff Supervisor Dermatology 04/10/24 Herminia Hatch MD [facility]5 [place], [place] 58884125 Assigned Rheumatology Provider 07/02/24 [place] [address] [place] [address] [place] [address] Ophthalmology 08/30/24 [place] [address] [place] [address] Assigned Neuroscience Provider 09/30/24 Maru Man PA-C [address] [place] [address] Physician Tariff Supervisor Dermatology 10/03/24 Maru Man PA-C [address] [place] [address] Physician Tariff Supervisor Dermatology 10/22/24 Jelena David OD [address] [facility] [place] [address] Assigned Surgical Provider 10/31/24 Fabiano Correa NP [address] [place] [address] Assigned Heart and Vascular Provider 11/30/24 documented as of this encounter
--- OUTSIDE RECORDS SUMMARY | 2024-12-17 21:38 | XMS_ITS | Encounter Summary ---
Author Organization [facility] Address [address] [place] [address] Care Team Providers Care Hand Candy Dipper Name Role Phone Lita Oseguera Unavailable Unavailable Marija Edgar APRN MERCHANDISE SUPERVISOR Primary Care Provider + Marija Edgar APRN MERCHANDISE SUPERVISOR Unavailable [phone] Mynor Broussard MD Unavailable [phone] Keisha Dotson MD Unavailable Galo Burrell MD Unavailable Unavailable Diana Desir [facility] Unavailable Rain Galaviz PA-C Unavailable Summer Lara MD Unavailable [phone] Tavia Wyatt MD Unavailable Johnny Murillo MD Unavailable Erica Farrell APRN MERCHANDISE SUPERVISOR Unavailable Tavia Wyatt MD Unavailable Diana Desir [facility] Unavailable Rich Barrett MD Unavailable [phone] Neil Kent MD Unavailable Roney StoryM Unavailable Erica Farrell APRN MERCHANDISE SUPERVISOR Unavailable Diana Desir [facility] Unavailable Jelena David OD Unavailable Galo Burrell MD Unavailable Unavailable Livan Sharif MD Unavailable Livan Sharif MD Unavailable IsCatherine hobbs MD Unavailable + Valery Veronica PA-C Unavailable [phone] Catherine Cm MD Unavailable + Johnny Murillo MD Unavailable [phone] Brea Quinn ROTARY DRIER MERCHANDISE SUPERVISOR Unavailable [phone] Brea Quinn ROTARY DRIER MERCHANDISE SUPERVISOR Unavailable [phone] Jose Francisco Johnson MD Unavailable Livan Sharif MD Unavailable + IsCatherine hobbs MD Unavailable + Sydnie Martinez RN Unavailable Unavailable Alfonso Renteria MD Unavailable Esha Grimm PA-C Primary Care Provider Cheng Todd PA-C Unavailable Radha Lomeli ROTARY DRIER MERCHANDISE SUPERVISOR Unavailable [phone] Jelena David OD Unavailable Pao Joseph RN Unavailable Unavailable Esha Grimm-C Unavailable [phone] Valery Veronica PA-C Unavailable [phone] Rey Tay MD Unavailable Rocky Zepeda DO Unavailable Philip Dumont MD Unavailable [phone] Debi Meredith A PA-C Unavailable [phone] Neil Kent MD Unavailable Juan Pablo Emmanuel MD Unavailable Audrey Waite PA-C Unavailable [phone] Valery Veronica PA-C Unavailable Herminia Hatch MD Unavailable Jelena David OD Unavailable Juan Pablo Emmanuel MD Unavailable [phone] Maru Man-C Unavailable [phone] Maru Man-C Unavailable [phone] Jelena David OD Unavailable [phone] Fabiano Correa WOOD PATTERN MAKER Unavailable [phone] Encounter Details Date Type Department Care Team (Late st Contact Info) Description 10/17/2021 [facility] Medical Advice [address] [address] Diana Desir, [facility] 3036 [place], [place] [phone] Social History Tobacco Use Types Packs/Day Years [...] How often do you attend zoroastrianism or confucianism serv ices? Never 09/22/2021 Do [...] Date Recorded PHQ-2 Score 2 09/22/2021 [facility] of Occupat ional [...] in a halfway (including now)? No 09/22/2021 Paulding Depression Scale Answer Date Recorded Paulding Depression Score 5 01/14/2021 Last EPDS Self Harm Result Not on file 01/14 Education Answer Date Recorded What is the highest level of school you have completed or the highest degree you have received? 12th grade 08/07/2020 Comments No Sex and Gender Information Value Date Recorded Sex Assigned at Female 03/02/2021 5:45 PM CDT Legal Sex Female 4:13 AM LAND SURVEYING MANAGER Gender Identity Female 03/02/2021 5:45 PM [...] Description 12/19/2024 2:00 PM CDT Office Visit [address] [address] Lauren Claudio PA-C [address] [place] [address] 12/26/2024 7:30 AM CDT Office Visit [facility] [address] [phone] Neil Kent MD [address] [place] [address] 04/16/2025 11:00 AM CDT Virtual Visit [facility] [place] 909 [facility] 4th [place] [phone] Meredith Carrera PA-C [address] [place] [address] documented as of this encounter Visit Diagnoses Not on filedocumented in this encounter Additional Health Concerns Infection Onset Date Last Indicated Resolved Time Rule Out COVID-19 12/18/2021 12/18/2021 12/19/2021 11:34 AM CDT Rule Out COVID-19 02/24/2022 02/24/2022 02/25/2022 1:08 PM CDT Rule Out COVID-19 04/26/2022 04/26/2022 04/26/2022 6:47 AM CDT Rule Out COVID-19 05/17/2022 05/17/2022 05/17/2022 10:20 PM LAND SURVEYING MANAGER Rule Out COVID-19 06/09/2022 06/09/2022 06/09/2022 9:35 AM LAND SURVEYING MANAGER COVID-19 06/09/2022 06/09/2022 06/30/2022 11:4 1 PM LAND SURVEYING MANAGER Rule Out COVID-19 11/10/2022 11/10/2022 11/11/2022 [...] as of this encounter Care Teams Hand Candy Dipper Relationship Specialty Start Date End Date Marija Edgar APRN MERCHANDISE SUPERVISOR PCP - General Nurse Practitioner 04/30/20 04/14/23 Esha Grimm PA-C [address] [place] [phone] PCP - General Family Medicine 05/04/23 Lita Oseguera Personal Advocate & Liaison (PAL) 02/28/20 03/27/23 Marija Edgar APRN MERCHANDISE SUPERVISOR Assigned PCP 06/08/20 04/29/23 Mynor Broussard MD [address] [address] Assigned Surgical Provider 06/01/20 11/28/21 Keisha Dotson MD 9 [place] [address] Assigned Neuroscience Provider 06/04/20 04/01/23 Galo Burrell MD Assigned Heart and Vascular Provider 10/05/20 04/02/22 Diana Desir [facility] [address] [place] [address] Pharmacist Pharmacist 04/17/21 Rain Galaviz PA-C [address] [place] [address] [place] [address] Physician Lowerator Operator Dermatology 04/28/21 Summer Lara MD [address] [place] [address] 766824 Assigned OBGYN Provider 05/31/21 2 Tavia Wyatt MD [address] [place], [place] [address]E [place], [place] [address] Dermatology 07/14/21 Johnny Murillo MD [address] [place], [place] 069994 Assigned Musculoskeletal Provider 08/30/21 03/17/22 Erica Farrell APRN MERCHANDISE SUPERVISOR 6405 [facility] [address] [place], [place] 0[address]45 Nurse Practitioner Cardiovascular Disease 09/09/21 Tavia Wyatt MD [address] [place], [place] 538910 Assigned Surgical Provider 11/29/21 05/07/22 Diana Desir [facility] 3033 [place] [address] Assigned MTM Pharmacist 01/02/22 Rich Barrett MD 3033 [place] [address] Physician Ophthalmology 01/21/22 Neil Kent MD 500 [place], [place] 513015 Dermatology 02/24/22 Roney Story DPM [address]559 [facility] [address] [place], [place] 377957 Assigned Musculoskeletal Provider 03/20/22 08/13/22 Erica Frarell APRN MERCHANDISE SUPERVISOR 1700 [place] [address] Assigned Heart and Vascular Provider 04/03/22 04/16/22 Diana Desir, [facility] 3033 [place] [address] Assigned MTM Pharmacist 04/07/22 Jelena David OD [address] [facility] [place] [address] Assigned Surgical Provider 05/08/22 10/08/22 Galo Burrell MD Assigned Heart and Vascular Provider 04/17/22 06/11/22 Livan Sharif MD 6405 [facility] [address]200 [place] 847835 Cardiovascular Disease 05/14/22 Livan Sharif MD [address] 1403200 [place] [address] Assigned Heart and Vascular Provider 06/12/22 07/23/22 Catherine Cm MD [address] [address] [place] [address] Cardiovascular Disease 07/21/22 Valery Veronica, PA-C [address] [place] [address] 232745 Physician Lowerator Operator Dermatology 07/21/22 Catherine Cm MD [address] [address] [place] [address] Assigned Heart and Vascular Provider 07/24/22 11/05/22 Johnny Murillo MD [address] [place] [address] 054304 Assigned Musculoskeletal Provider 08/14/22 10/08/22 Brea Quinn APRN MERCHANDISE SUPERVISOR [address] [place] [address] Nurse Practitioner Dermatology 09/21/22 Brea Quinn APRN MERCHANDISE SUPERVISOR [address] [place] [address] [place] [address] Assigned Surgical Provider 10/09/22 05/01/24 [place] [address] [place] [address] Assigned Musculoskeletal Provider 10/09/22 05/01/24 Livan Sharif MD [address] [facility] [address] [place] [address] Assigned Heart and Vascular Provider 11/06/22 11/12/22 Catherine Cm MD [address] [facility] [address] [place] [address] Assigned Heart and Vascular Provider 11/13/22 05/27/23 Sydnie Martinez RN Personal Advocate & Liaison (PAL) Family Medicine 03/28/23 07/31/23 Alfonso Renteria MD 5775 [facility] 200 [place] [address] Assigned Neuroscience Provider 04/02/23 09/29/24 Cheng Todd PA-C [address] [place] [address] Assigned PCP 04/30/23 07/15/23 Radha Lomeli, ARLENE MERCHANDISE SUPERVISOR [address] [place] [address] Assigned Heart and Vascular Provider 05/28/23 11/29/24 Jelena David OD [address] [place] [address] [place] [address] Ophthalmology 06/15/23 Pao Joseph, VJ Personal Advocate & Liaison (PAL) Nurse 08/01/23 11/07/23 Esha Grimm PA-C [address] [place] [address] Assigned PCP 07/16/23 Valery Veronica PA-C [address] [place] [address] 797085 Physician Lowerator Operator Dermatology 09/19/23 Rey Tay MD [address] [place] [address] MD Gastroenterology 09/20/23 Rocky Zepeda DO [address] [place] [address] Physician Gastroenterology 09/20/23 Philip Dumont MD [address] [place] [address] Physician Ophthalmology 09/22/23 Meredith Carrera PA-C [address] [place] [address] Assigned Gastroenterology Provider 11/01/23 Neil Kent MD [address] [address] Dermatology 11/02/23 [place] [address] [place] [address] Neurological Surgery 12/26/23 Audrey Waite PA-C [address] [place] [address] Physician Lowerator Operator Dermatology 02/28/24 Valery Veronica PA-C [address] [place] [address] Physician Lowerator Operator Dermatology 04/10/24 Herminia Hatch MD [address] [place] [address] [id number] Assigned Rheumatology Provider 07/02/24 Jelena David, SONJA [address] [place] [address] [place] [address] Ophthalmology 08/30/24 [place] [address] [place] [address] Assigned Neuroscience Provider 09/30/24 Maru Man PA-C [address] [place] [address] Physician Lowerator Operator Dermatology 10/03/24 Maru Man PA-C [address] [place] [address] Physician Lowerator Operator Dermatology 10/22/24 Jelena David, SONJA [facility]5 [facility] [place] [address] Assigned Surgical Provider 10/31/24 Fabiano [place]rea NP [address] [place] [address] Assigned Heart and Vascular Provider 11/30/24 documented as of this encounter
--- OUTSIDE RECORDS SUMMARY | 2024-12-17 21:38 | XMS_ITS | Encounter Summary ---
Author Organization [place] Address [address] [place] [address] Care Team Providers Care Box Maker Wood Name Role Phone Lita Oseguera Unavailable Unavailable Marija Edgar APRN PLATEN BUILDER UP Primary Care Provider + Chanelle Mccann APRN CNM Unavailab le Kyara De La Fuente RN Unavailable [phone] Marija Edgar APRN PLATEN BUILDER UP Unavailable Mynor Broussard MD Unavailable [phone] Keisha Dotson MD Unavailable Mary Mejia Unavailable Unavailable Stacey Briones MANAGER REHAB Unavailable Lesley Guillermo CHW Unavailable Mary Mejia Unavailable Unavailable Lita Oseguera Unavailable Unavailable Galo Burrell MD Unavailable Unavailable Cristina Wood Unavailable Lesley Guillermo CHW Unavailable Meredith Bedoya Unavailable Unavailable Cristina Wood Unavailable Diana Desir [facility] Unavailable Ruhland, Rain Lena PA-C Unavailable Summer Lara MD Unavailable [phone] Summer Lara MD Unavailable [phone] Summer Lara MD Unavailable [phone] Tavia Wyatt MD Unavailable [phone] Johnny Murillo MD Unavailable [phone] Erica Farrell APRN PLATEN BUILDER UP Unavailable VikasTeresita H Unavailable Tavia Wyatt MD Unavailable [phone] Diana Desir [facility] Unavailable [phone] Rich Barrett MD Unavailable [phone] Neil Kent MD Unavailable Roney Story [facility] Unavailable Erica Farrell APRN PLATEN BUILDER UP Unavailable Diana Desir [facility] Unavailable [phone] Jelena David OD Unavailable Galo Burrell MD Unavailable Unavailable Livan Sharif MD Unavailable Livan Sharif MD Unavailable Catherine Cm MD Unavailable + Valery Veronica PA-C Unavailable [phone] Catherine Cm MD Unavailable + Johnny Murillo MD Unavailable +[phone] Brea Quinn APRN PLATEN BUILDER UP Unavailable [phone] Brea Quinn TERRAZZO TILE MAKER PLATEN BUILDER UP Unavailable [phone] Jose Francisco Johnson MD Unavailable Livan Sharif MD Unavailable Catherine Cm MD Unavailable + Sydnie Martinez RN Unavailable Unavailable Alfonso Renteria MD Unavailable [phone] Esha Grimm PA-C Primary Care Provider Cheng Todd PA-C Unavailable Radha Lomeli APRN, CNP Unavailable Jelena David OD Unavailable Pao Joseph RN Unavailable Unavailable Esha Grimm PA-C Unavailable [phone] Valery Veronica PA-C Unavailable Rey Tay [...] Contact Info) Description 08/07/2020 [facility] Medical [facility] [address] [place] [address] Lesley Guillermo, [facility] Social History Tobacco Use Types [...] often do you attend [facility] or oriental orthodox services? More than 4 [...] Answer Date Recorded PHQ-2 Score 3 06/24/2020 [facility] [...] CDT Legal Sex Female 4:13 AM CLINICAL MARKETING MANAGER Gender Identity Female 03/02/2021 5:45 PM CDT Sexual Orientation Straight 02/28/2020 12 :51 AM CDT COVID-19 Exposure Response Date Recorded In the last month, have you been in contact with someone who was confirmed or suspected to have Coronavirus / COVID-19? No / Unsure 08/06/2020 2:03 PM CLINICAL MARKETING MANAGER documented as of this encounter Functional Status documented as of this encounter Plan of Treatment Upcoming Encounters Date Type Department Care Team (Late st Contact Info) Description 12/19/2024 2:00 PM CDT Office Visit [address] [phone] Lauren Claudio PA-C [address] [place] [address] 12/26/2024 7:30 AM CDT Office Visit [facility] [address] [phone] Neil Kent MD [address] [place] [address] 205755 04/16/2025 11:00 AM CDT [facility] G[facility] [address] 4th [place] [phone] Meredith Carrera PA-C [address] [place] [address] documented as of this encounter Visit Diagnoses Not on filedocumented in this encounter Additional Health Concerns Infection Onset Date Last Indicated Resolved Time Rule Out COVID-19 08/30/2020 08/30/2020 08/30/2020 5:05 PM CLINICAL MARKETING MANAGER Rule Out COVID-19 09/24/2020 09/24/2020 09/24/2020 9:24 AM CDT Rule Out COVID-19 11/05/2020 11/05/2020 11/06/2020 1:09 PM CDT Rule Out COVID-19 05/11/2021 05/11/2021 05/13/2021 10:18 AM CDT Rule Out COVID-19 07/13/2021 07/13/2021 07/14/2021 3:04 PM CLINICAL MARKETING MANAGER Rule Out COVID-19 07/18/2021 07/18/2021 07/20/2021 1:56 PM CLINICAL MARKETING MANAGER COVID-19 07/18/2021 07/18/2021 08/08/2021 11:3 9 PM CLINICAL MARKETING MANAGER Rule Out COVID-19 12/18/2021 12/18/2021 12/19/2021 11:34 AM CDT Rule Out COVID-19 02/24/2022 02/24/2022 02/25/2022 1:08 PM CDT Rule Out COVID-19 04/26/2022 04/26/2022 04/26/2022 6:47 AM CDT Rule Out COVID-19 05/17/2022 05/17/2022 05/17/2022 10:20 PM CLINICAL MARKETING MANAGER Rule Out COVID-19 06/09/2022 06/09/2022 06/09/2022 9:35 AM CLINICAL MARKETING MANAGER COVID-19 06/09/2022 06/09/2022 06/30/2022 11:4 1 PM CLINICAL MARKETING MANAGER Rule Out COVID-19 11/10/2022 11/10/2022 [...] Depression Total Score: 9 06/25/20 7:04 AM CLINICAL MARKETING MANAGER documented as of this encounter Care Teams Box Maker Wood Relationship Specialty Start Date End Date Marija Edgar APRN PLATEN BUILDER UP PCP - General Nurse Practitioner 04/30/20 04/14/23 Esha Grimm PA-C [address] [place] [phone] PCP - General Family Medicine 05/04/23 Lita Oseguera Personal Advocate & Liaison (PAL) 02/28/20 03/27/23 [place] [address] [address] [address] [place], [place] 665297 Assigned OBGYN Provider 05/02/2005/09 Kyara DeL a Fuente, RN Specialty Construction Representative Neurology 06/04/20 03/05/21 Marija Edgar APRN PLATEN BUILDER UP Assigned PCP 06/08/20 04/29/23 Mynor Broussard MD [address] [facility] 500 [place], [place] 974405 Assigned Surgical Provider 06/01/20 11/28/21 Keisha Dotson MD [address] [place], [place] 323775 Assigned Neuroscience Provider 06/04/20 04/01/23 Mary Mejia Financial Resource Worker 08/07/20 08/21/20 Stacey Briones, [facility] Lead Construction Representative Primary Care - CC 08/11/2012/30 Lesley Guillermo, [facility] Community Health Worker 08/11/2010/01 Aditi Mejiandra Financial Resource Worker 09/02/20 10/06/20 Lita [...] 02/09/21 Diana Desir, [facility] [address] [place], [place] 925[address] Pharmacist Pharmacist 04/17/21 Rain Galaviz PA-C [address] [place] [address] [place] [address] Physician Digital Account Director Dermatology 04/28/21 Summer Lara MD [address] [place] [address] Assigned OBGYN Provider 05/10/2105/23 Summer Lara MD [address] [place] [address] Assigned OBGYN Provider 05/31/21 Summer Lara MD [address] [place] [address] Assigned OBGYN Provider 05/24/2105/30 Tavia Wyatt MD [address] [place] [address] Dermatology 07/14/21 Johnny Murillo MD [address] [place] [address] Assigned Musculoskeletal Provider 08/30/21 03/17/22 Erica Farrell APRN PLATEN BUILDER UP [address] [facility] [address] [place] [address] Nurse Practitioner Cardiovascular Disease 09/09/21 Teresita Bean, [facility] [address] [place], [place] [phone] Pharmacist Pharmacist 09/24/21 09/29/21 Tavia Wyatt MD [address] [place], [place] 383420 Assigned Surgical Provider 11/29/21 05/07/22 Diana Desir, [facility] [address] [place] [address] Assigned MTM Pharmacist 01/02/22 Rich Barrett MD [address] [place] [address] Physician Ophthalmology 01/21/22 Neil Kent MD 500 [place] [address] Dermatology 02/24/22 Roney Story DPM [address] [facility] [address] [place], [place] 124127 Assigned Musculoskeletal Provider 03/20/22 08/13/22 Erica Farrell APRN PLATEN BUILDER UP [address] [place] [address] Assigned Heart and Vascular Provider 04/03/22 04/16/22 Diana Desir, [facility] [address] [place] [address] Assigned MTM Pharmacist 04/07/22 Jelena David OD [address] [facility] [place] [address] Assigned Surgical Provider 05/08/22 10/08/22 Galo Burrell MD Assigned Heart and Vascular Provider 04/17/22 06/11/22 Livan Sharif MD [address] [place] [id number] Cardiovascular Disease 05/14/22 Livan Sharif MD [address] [place] 444735 Assigned Heart and Vascular Provider 06/12/22 07/23/22 Catherine Cm MD [address] [place] [address] Cardiovascular Disease 07/21/22 Valery Veronica, PA-C [address] [place] [address] Physician Digital Account Director Dermatology 07/21/22 Catherine Cm MD [address] [address] Assigned Heart and Vascular Provider 07/24/22 11/05/22 Johnny Murillo MD [address] [place] [address] Assigned Musculoskeletal Provider 08/14/22 10/08/22 Brea Quinn APRN PLATEN BUILDER UP [address] [place] [address] Nurse Practitioner Dermatology 09/21/22 Brea Quinn [place] [address] [place] [address] Assigned Surgical Provider 10/09/22 05/01/24 [place] [address] [place] [address] Assigned Musculoskeletal Provider 10/09/22 05/01/24 Livan Sharif MD [address] [place] [address] Assigned Heart and Vascular Provider 11/06/22 11/12/22 Catherine Cm MD [address] [place] [address] Assigned Heart and Vascular Provider 11/13/22 05/27/23 Sydnie Martinez RN Personal Advocate & Liaison (PAL) Family Medicine 03/28/23 07/31/23 Alfonso Renteria MD [address] [facility] 200 [place] [address] Assigned Neuroscience Provider 04/02/23 09/29/24 Cheng Todd PA-C [address] [place] [address] Assigned PCP 04/30/23 07/15/23 Radha Lomeli APRN PLATEN BUILDER UP [address] [place] [address] Assigned Heart and Vascular Provider 05/28/23 11/29/24 Jelena David OD [address] [facility] [place] [address] Ophthalmology 06/15/23 Pao Joseph, VJ Personal Advocate & Liaison (PAL) Nurse 08/01/23 11/07/23 Esha Grimm PA-C [address] [place] [phone] Assigned PCP 07/16/23 Valery Veronica PA-C [address] [place] [address] Physician Digital Account Director Dermatology 09/19/23 Rey Tay MD [address] [place] [address] MD Gastroenterology 09/20/23 Rocky Zepeda DO [address] [place] [address] Physician Gastroenterology 09/20/23 Philip Dumont MD [address] [place] [address] Physician Ophthalmology 09/22/23 Meredith Carrera PA-C [address] [place] [address] Assigned Gastroenterology Provider 11/01/23 Neil Kent MD [address] [address] Dermatology 11/02/23 [place] [address] 147897 Neurological Surgery 12/26/23 Audrey Waite PA-C [address] [place] [address] Physician Digital Account Director Dermatology 02/28/24 Valery Veronica PA-C [id number] [place] [address] Physician Digital Account Director Dermatology 04/10/24 Herminia Hatch MD [address] [place] [address] Assigned Rheumatology Provider 07/02/24 Jelena David OD [address] [place] [address] [place] [address] Ophthalmology 08/30/24 [place] [address] [place] [address] Assigned Neuroscience Provider 09/30/24 Maru Man PA-C [address] [place] [address] Physician Digital Account Director Dermatology 10/03/24 Maru Man PA-C [address] [place] [address] Physician Digital Account Director Dermatology 10/22/24 Jelena David OD [address] [place] [address] [place] [address] Assigned Surgical Provider 10/31/24 Fabiano Correa NP [address] [place] [address] Assigned Heart and Vascular Provider 11/30/24 documented as of this encounter
--- OUTSIDE RECORDS SUMMARY | 2024-12-17 21:38 | XMS_ITS | Encounter Summary ---
Author Organization [place] Address [address] [place] [address] Care Team Providers Care Systems Integrator Name Role Phone Marija Edgar APRN DISASTER RESPONSE DIRECTOR Primary Care Provider + Marija Edgar APRN DISASTER RESPONSE DIRECTOR Unavailable [phone] Diana Desir [facility] Unavailable Rain Galaviz PA-C Unavailable [phone] Tavia Wyatt MD Unavailable Erica Farrell APRN DISASTER RESPONSE DIRECTOR Unavailable Rich Barrett MD Unavailable [phone] Neil Kent MD Unavailable Diana Desir [facility] Unavailable Livan Sharif MD Unavailable Catherine Cm MD Unavailable + Valery Veronica PA-C Unavailable Brea Quinn APRN DISASTER RESPONSE DIRECTOR Unavailable Brea Quinn APRN, CNP Unavailable Jose Francisco Johnson MD Unavailable Catherine Cm MD Unavailable + Sydnie Martinez RN Unavailable Unavailable Alfonso Renteria MD Unavailable [phone] Esha Grimm PA-C Primary Care Provider Cheng Todd PA-C Unavailable Armani Radha [place] ARLENE GRANADOS Unavailable Jelena David OD Unavailable Pao Joseph RN Unavailable Unavailable Esha Grimm PA-C Unavailable [phone] Valery Veronica PA-C Unavailable Rey Tay [...] (Late st Contact Info) Description 04/12/2023 [facility] Medical Advice [facility] [address] [place] [phone] Livan Sharif MD [address] [place] [address] Social History Tobacco Use Types Packs/Day Years [...] you attend [facility] or mu-ism services? 1 to 4 times [...] Answer Date Recorded PHQ-2 Score 0 03/10/2023 [facility] of Occupat ional [facility] [...] in a alf (including now)? 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 Kim Swann, We are in [place], but asked a tech here to check the photo. He said the spot you chose is OK but he thinks we should have the [employer] techs check in with you as you may need to have some extra prep gelif you have have issues with the pads. We are reaching out to that [facility] team to let them know you are having some issues. Team [address] [place] [address] Sharif [phone] documented in this encounter Plan of Treatment Upcoming Encounters Date Type Department Care Team (Late st Contact Info) Description 12/19/2024 2:00 PM CDT Office Visit [facility] [address] [place] [phone] Lauren Claudio PA-C [address] [place] [address] 12/26/2024 7:30 AM CDT Office Visit [address] [phone] Neil Kent MD [address] [place] [address] 401625 04/16/2025 11:00 AM CDT Virtual Visit [facility] [address] 4th [place] [phone] Meredith Carrera PA-C [address] [place] [address] documented as of this encounter Visit Diagnoses [...] documented as of this encounter Care Teams Systems Integrator Relationship Specialty Start Date End Date Marija Egdar APRN DISASTER RESPONSE DIRECTOR PCP - General Nurse Practitioner 04/30/20 04/14/23 Esha Grimm PA-C [address] [place] [phone] PCP - General Family Medicine 05/04/23 Marija Edgar APRN DISASTER RESPONSE DIRECTOR Assigned PCP 06/08/20 04/29/23 Diana Desir, [facility] [address] [place], [place] [address]40[address] Pharmacist Pharmacist 04/17/21 Rain Galaviz PA-C [address] [place] [address] [address] [place] [address] Physician Instructional Services Specialist Dermatology 04/28/21 Tavia Wyatt MD [address] [place] [address] [address] [place] [address] Dermatology 07/14/21 Erica Farrell APRN DISASTER RESPONSE DIRECTOR [address] [facility] [address] [place] [address] Nurse Practitioner Cardiovascular Disease 09/09/21 Rich Barrett MD [address] [place], [place] [address] Physician Ophthalmology 01/21/22 Neil Kent MD 500 [place] [address] Dermatology 02/24/22 [facility] [address] [place] [address] Assigned [place] Pharmacist 04/07/22 Livan Sharif MD [address] [place] [address] Cardiovascular Disease 05/14/22 Catherine Cm MD [address] [facility] [address] [place] [address] Cardiovascular Disease 07/21/22 Valery Veronica, PA-C [address] [place] [address] Physician Instructional Services Specialist Dermatology 07/21/22 Brea Quinn APRN DISASTER RESPONSE DIRECTOR 500 [place] [address] Nurse Practitioner Dermatology 09/21/22 Brea Quinn APRN DISASTER RESPONSE DIRECTOR [address] [place] [address] Assigned Surgical Provider 10/09/22 05/01/24 [place] [address] [place] [address] Assigned Musculoskeletal Provider 10/09/22 05/01/24 Catherine Cm MD [address] [facility] [address] [place] [address] Assigned Heart and Vascular Provider 11/13/22 05/27/23 Sydnie Martinez RN Personal Advocate & Liaison (PAL) Family Medicine 03/28/23 07/31/23 Alfonso Renteria MD [address] [facility] 200 [place] [address] Assigned Neuroscience Provider 04/02/23 09/29/24 Cheng Todd PA-C [address] [place] [address] Assigned PCP 04/30/23 07/15/23 Radha Lomeli APRN DISASTER RESPONSE DIRECTOR [address] [facility] [address] [place] [address] Assigned Heart and Vascular Provider 05/28/23 11/29/24 Jelena David OD [facility] [place] [address] Ophthalmology 06/15/23 Pao Joseph, VJ Personal Advocate & Liaison (PAL) Nurse 08/01/23 11/07/23 Esha Grimm PA-C [address] [place] [phone] Assigned PCP 07/16/23 Valery Veronica PA-C [address] [place] [address] Physician Instructional Services Specialist Dermatology 09/19/23 Rey Tay MD [address] [place] [address] MD Gastroenterology 09/20/23 Rocky Zepeda DO [address] [place] [address] Physician Gastroenterology 09/20/23 Philip Dumont MD [address] [place] [address] Physician Ophthalmology 09/22/23 Meredith Carrera PA-C [address] [place] [address] Assigned Gastroenterology Provider 11/01/23 Neil Kent MD [address] [address] Dermatology 11/02/23 [place] [address] [address] Neurological Surgery 12/26/23 Audrey Waite PA-C [address] [place] [address] 523085 Physician Instructional Services Specialist Dermatology 02/28/24 Valery Veronica PA-C [address] [place] [address] 871799 Physician Instructional Services Specialist Dermatology 04/10/24 Herminia Hatch MD [facility]5 [place], [place] 69[address] Assigned Rheumatology Provider 07/02/24 Jelena David OD [address] [place] [address] Ophthalmology 08/30/24 [place] [address] [place] [address] Assigned Neuroscience Provider 09/30/24 Maru Man PA-C [address] [place] [address] Physician Instructional Services Specialist Dermatology 10/03/24 Maru Man PA-C [address] [place] [address] Physician Instructional Services Specialist Dermatology 10/22/24 Jelena David OD [address] [place] [address] Assigned Surgical Provider 10/31/24 Fabiano Correa NP [address] [place] 311165 Assigned Heart and Vascular Provider 11/30/24 documented as of this encounter
--- OUTSIDE RECORDS SUMMARY | 2024-12-17 21:38 | XMS_ITS | Encounter Summary ---
Author Organization [employer] Address [address] [place] [address] Care Team Providers Care Post Doc Fellowship Name Role Phone Lita Oseguera Unavailable Unavailable Marija Edgar APRN RESEARCH DIETITIAN Primary Care Provider + Marija Edgar APRN RESEARCH DIETITIAN Unavailable [phone] Keisha Dotson MD Unavailable Galo Burrell MD Unavailable Unavailable Diana Desir [facility] Unavailable Rain Galaviz PA-C Unavailable Summer Lara MD Unavailable [phone] Tavia Wyatt MD Unavailable Johnny Murillo MD Unavailable Erica Farrell APRN RESEARCH DIETITIAN Unavailable Tavia Wyatt MD Unavailable Diana Desir [facility] Unavailable Rich Barrett MD Unavailable [phone] Neil Kent MD Unavailable Roney Story DPM Unavailable Erica Farrell APRN RESEARCH DIETITIAN Unavailable Diana Desir [facility] Unavailable [phone] Jelena David OD Unavailable [phone] Galo Burrell MD Unavailable Unavailable HoLivan MD Unavailable Livan Sharif MD Unavailable IsCatherine hobbs MD Unavailable + Valery Veronica PA-C Unavailable [phone] Catherine Cm MD Unavailable + Johnny Murillo MD Unavailable [phone] WORKER RESEARCH DIETITIAN Unavailable [phone] WORKER RESEARCH DIETITIAN Unavailable [phone] Jose Francisco Johnson MD Unavailable Livan Sharif MD Unavailable + IsCatherine boothe MD Unavailable + Sydnie Martinez RN Unavailable Unavailable Alfonso Renteria MD Unavailable Esha Grimm PA-C Primary Care Provider Cheng Todd PA-C Unavailable Radha Lomeli [address] WORKER RESEARCH DIETITIAN Unavailable [phone] Jelena David OD Unavailable Pao Jsoeph RN Unavailable Unavailable Esha Grimm PA-C Unavailable [phone] Valery Veronica PA-C Unavailable [phone] Rey Tay MD Unavailable Rocky Zepeda DO Unavailable Philip Dumont MD Unavailable [phone] Meredith Carrera PA-C Unavailable [phone] Neil Kent MD Unavailable Juan Pablo Emmanuel MD Unavailable Audrey WaiteC Unavailable [phone] Valery Veronica-C Unavailable [phone] Herminia Hatch MD Unavailable Jelena David OD Unavailable Juan Pablo Emmanuel MD Unavailable Maru Man PA-C Unavailable [phone] Maru Man PA-C Unavailable [phone] Jelena David OD Unavailable [phone] Fabiano Correa REGULATORY SCIENTIST Unavailable [phone] Encounter Details Date Type Department Care Team (Late st Contact Info) Description 12/03/2021 MyC Medical Advice [facility] Ep[facility]psy [facility] [address] [place] [address] Keisha Dotson MD [address] [place] [address] [phone] Social History Tobacco Use Types Packs/Day Years [...] in a mcfp (including now)? No 09/22/2021 [place] Depression Scale Answer Date Recorded Palmer [...] Description 12/19/2024 2:00 PM CDT Office Visit [facility] [id number] [place] [phone] Lauren Claudio PA-C [id number] [place] [address] 12/26/2024 7:30 AM CDT Office Visit [facility] [address] [phone] Neil [place] MD [address] [place] [address] 884955 04/16/2025 11:00 AM CDT Virtual Visit [facility] [place] [address] [place] [address] 4th [place] [address] Meredith Carrera PA-C [address] [place] [address] documented as of this encounter Visit Diagnoses [...] as of this encounter Care Teams Post Doc Fellowship Relationship Specialty Start Date End Date Marija Edgar APRN RESEARCH DIETITIAN PCP - General Nurse Practitioner 04/30/20 04/14/23 Esha Grimm PA-C [address] [place] [phone] PCP - General Family Medicine 05/04/23 Lita Oseguera Personal Advocate & Liaison (PAL) 02/28/20 03/27/23 Marija Edgar APRN RESEARCH DIETITIAN Assigned PCP 06/08/20 04/29/23 Keisha Dotson MD [address] [place], [place] 6[address]055 Assigned Neuroscience Provider 06/04/20 04/01/23 Galo Burrell MD Assigned Heart and Vascular Provider 10/05/20 04/02/22 Diana Desir, [facility] 30[address] [place] [address] Pharmacist Pharmacist 04/17/21 Rain Galaviz PA-C [address] [place] [address] [place] [address] Physician Teasel Setter Dermatology 04/28/21 Sumemr Lara MD [address] [place] [address] Assigned OBGYN Provider 05/31/21 Tavia Wyatt MD [address] [place] [address] Dermatology 07/14/21 Johnny Murillo MD [facility] [facility] [address] [place] [address] Assigned Musculoskeletal Provider 08/30/21 03/17/22 Erica Farrell APRN RESEARCH DIETITIAN [address] [facility] [address] [place] [address] Nurse Practitioner Cardiovascular Disease 09/09/21 Tavia Wyatt MD [address] [place], [place] 383030 Assigned Surgical Provider 11/29/21 05/07/22 Diana Desir, [facility] [address] [place] [address] Assigned MTM Pharmacist 01/02/22 Rich Barrett MD [address]33 [place] [address] Physician Ophthalmology 01/21/22 Neil Kent MD 500 [place] [address] Dermatology 02/24/22 Roney Story DPM [address] [facility] [address] [place] [address] Assigned Musculoskeletal Provider 03/20/22 08/13/22 Erica Farrell APRN RESEARCH DIETITIAN 1700 [place] [address] Assigned Heart and Vascular Provider 04/03/22 04/16/22 [facility] [address] [place] [address] Assigned MTM Pharmacist 04/07/22 [place] [address] [place] [address] [place] [address] Assigned Surgical Provider 05/08/22 10/08/22 Galo Burrell MD Assigned Heart and Vascular Provider 04/17/22 06/11/22 Livan Sharif MD [address] [place] [address] Cardiovascular Disease 05/14/22 Livan Sharif MD [address] [place] [phone] Assigned Heart and Vascular Provider 06/12/22 07/23/22 Catherine Cm MD [address] [facility]00 [place] [address] Cardiovascular Disease 07/21/22 Valery Veronica, PAUcheC [address] [place] [address] 596105 Physician Teasel Setter Dermatology 07/21/22 Catherine Cm MD [address] [place] 0133000 [place] [id number] Assigned Heart and Vascular Provider 07/24/22 11/05/22 Johnny Murillo MD [address] [place] [address] Assigned Musculoskeletal Provider 08/14/22 10/08/22 Brea Quinn APRN RESEARCH DIETITIAN [address] [place] [address] [phone] Nurse Practitioner Dermatology 09/21/22 Brea Quinn APRN RESEARCH DIETITIAN [address] [place] [address] [facility] [place] [address] Assigned Surgical Provider 10/09/22 05/01/24 [place] [address] [place] [address] 880097 Assigned Musculoskeletal Provider 10/09/22 05/01/24 Livan Sharif MD [address] [facility]00 [place] 179335 Assigned Heart and Vascular Provider 11/06/22 11/12/22 Catherine Cm MD [address] [facility] [address] [place] [address] Assigned Heart and Vascular Provider 11/13/22 05/27/23 Sydnie [place] RN Personal Advocate & Liaison (PAL) Family Medicine 03/28/23 07/31/23 Alfonso Renteria MD [address] [facility] 200 [place] [address] Assigned Neuroscience Provider 04/02/23 09/29/24 Cheng Todd PA-C [address] [place] [address] [phone] Assigned PCP 04/30/23 07/15/23 Radha Lomeli APRN RESEARCH DIETITIAN [address] [place] [address] Assigned Heart and Vascular Provider 05/28/23 11/29/24 Jelena David OD [address] [place] [address] Ophthalmology 06/15/23 Pao Joseph RN Personal Advocate & Liaison (PAL) Nurse 08/01/23 11/07/23 Esha Grimm PA-C [address] [place] [address] Assigned PCP 07/16/23 Valery Veronica PA-C [address] [place] [address] Physician Teasel Setter Dermatology 09/19/23 Rey Tay MD [address] [place] [address] MD Gastroenterology 09/20/23 Rocky Zepeda DO [address] [place] [address] Physician Gastroenterology 09/20/23 Philip Dumont MD [address] [place] [address] Physician Ophthalmology 09/22/23 Meredith Carrera PA-C [address] [place] [address] Assigned Gastroenterology Provider 11/01/23 Neil [place] MD [address] [phone] Dermatology 11/02/23 [place] [address] [place], [place] 443707 Neurological Surgery 12/26/23 Audrey Waite PA-C [address] [place] [address] Physician Teasel Setter Dermatology 02/28/24 Valery Veronica PA-C [address] [place] [address] Physician Teasel Setter Dermatology 04/10/24 Herminia Hatch MD [facility]5 [place], [place] [phone] Assigned Rheumatology Provider 07/02/24 Jelena David OD [facility] [place] [address] Ophthalmology 08/30/24 [place] [address] [place] [address] Assigned Neuroscience Provider 09/30/24 Maru Man PA-C [address] [place] [address] Physician Teasel Setter Dermatology 10/03/24 Maru Man PA-C [address] [place] [address] Physician Teasel Setter Dermatology 10/22/24 Jelena David, SONJA [facility] [place] [address] Assigned Surgical Provider 10/31/24 Fabiano Correa, REGULATORY SCIENTIST [address] [place] [address] Assigned Heart and Vascular Provider 11/30/24 documented as of this encounter
--- OUTSIDE RECORDS SUMMARY | 2024-12-17 21:38 | XMS_ITS | Encounter Summary ---
Author Organization [employer] Address [address] [place] [address] Care Team Providers Care Campaign Consultant Name Role Phone Marija Edgar ARLENE SONOGRAPHY TECHNOLOGIST Unavailable Diana Desir [facility] Unavailable Rain Galaviz PA-C Unavailable Tavia Wyatt MD Unavailable Erica Farrell APRN SONOGRAPHY TECHNOLOGIST Unavailable Rich Barrett MD Unavailable [phone] Neil Kent MD Unavailable Diana Desir [facility] Unavailable [phone] Livan Sharif MD Unavailable Catherine Cm MD Unavailable + Valery Veronica PA-C Unavailable [phone] Brea Quinn APRN SONOGRAPHY TECHNOLOGIST Unavailable [phone] Brea Quinn APRN SONOGRAPHY TECHNOLOGIST Unavailable Jose Francisco Johnson MD Unavailable Catherine Cm MD Unavailable + Sydnie [place] RN Unavailable Unavailable Alfonso Renteria MD Unavailable [phone] Esha Grimm PA-C Primary Care Provider Cheng Todd PA-C Unavailable Radha Lomeli APRN SONOGRAPHY TECHNOLOGIST Unavailable Jelena David OD Unavailable Pao Joseph RN Unavailable Unavailable Esha Grimm PA-C Unavailable [phone] Valery Veronica PA-C Unavailable Rey Tay [...] Team (Late st Contact Info) Description 04/18/2023 [facility] [address] [place] [address] Mary Calvo Social History Tobacco [...] 03/10/2023 [facility] - [facility]ational [...] exercise at this level? 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 [address] [phone] Neil [place] MD [address] [place] [address] 04/16/2025 11:00 AM CDT Virtual Visit [facility] [address] [place] [phone] Meredith Carrera PA-C [address] [place] [address] 052325 documented as of this encounter Visit Diagnoses [...] as of this encounter Care Teams Campaign Consultant Relationship Specialty Start Date End Date Esha Grimm PA-C [address] [place] [address] PCP - General Family Medicine 05/04/23 Marija Edgar APRN SONOGRAPHY TECHNOLOGIST Assigned PCP 06/08/20 04/29/23 Diana Desir, [facility] 30[address] [place] [address] Pharmacist Pharmacist 04/17/21 Rain Galaviz PA-C [address] [place] [address] [address] [facility] [place] [place] [address] Physician Slitter And Cutter Operator Dermatology 04/28/21 Tavia Wyatt MD [address] [place] [address] [address] [facility] [place] [place] [address] Dermatology 07/14/21 Erica Farrell APRN SONOGRAPHY TECHNOLOGIST [address] [place] [address] Nurse Practitioner Cardiovascular Disease 09/09/21 Rich Barrett MD [address] [place] [address] Physician Ophthalmology 01/21/22 Neil [place] MD 500 [place] [address] Dermatology 02/24/22 Diana Desir, [facility] [address] [place], [place] 217926 Assigned MTM Pharmacist 04/07/22 Livan Sharif MD [address] [place] 792685 Cardiovascular Disease 05/14/22 Catherine Cm MD [address] [place] [address] Cardiovascular Disease 07/21/22 Valery Veronica, PA-C 909 [place], [place] 257135 Physician Slitter And Cutter Operator Dermatology 07/21/22 Brea Quinn APRN SONOGRAPHY TECHNOLOGIST 500 [place] [address] Nurse Practitioner Dermatology 09/21/22 Brea Quinn APRN SONOGRAPHY TECHNOLOGIST 64[address] [facility] [place] [address] Assigned Surgical Provider 10/09/22 05/01/24 [place] [address] [place] [address] Assigned Musculoskeletal Provider 10/09/22 05/01/24 Catherine Cm MD [address] [place] 564075 Assigned Heart and Vascular Provider 11/13/22 05/27/23 Sydnie [place] RN Personal Advocate & Liaison (PAL) Family Medicine 03/28/23 07/31/23 Alfonso Renteria MD 5775 [facility] 200 [place] [address] Assigned Neuroscience Provider 04/02/23 09/29/24 Cheng Todd PA-C [address] [place] [address] [id number] Assigned PCP 04/30/23 07/15/23 Radha Lomeli APRN SONOGRAPHY TECHNOLOGIST [address] [place] [address] Assigned Heart and Vascular Provider 05/28/23 11/29/24 Jelena David OD [address] [facility] [place] [address] Ophthalmology 06/15/23 Pao Joseph, VJ Personal Advocate & Liaison (PAL) Nurse 08/01/23 11/07/23 Esha Grimm PA-C [address] [place] [phone] Assigned PCP 07/16/23 Valery Veronica PA-C [address] [place] [address] Physician Slitter And Cutter Operator Dermatology 09/19/23 Rey Tay MD [address] [place] [address] MD Gastroenterology 09/20/23 Rocky Zepeda DO [address] [place] [address] Physician Gastroenterology 09/20/23 Philip Dumont MD [address] [place] [address] 297505 Physician Ophthalmology 09/22/23 Meredith Carrera PA-C [address] [place] [address] Assigned Gastroenterology Provider 11/01/23 Neil [place] MD [address] [place] [address] Dermatology 11/02/23 [place] [address] [place] [address] Neurological Surgery 12/26/23 Audrey Waite PA-C [address] [place] [address] Physician Slitter And Cutter Operator Dermatology 02/28/24 Valery Veronica PA-C 792102 [address] [place] [address] Physician Slitter And Cutter Operator Dermatology 04/10/24 Herminia Hatch MD [facility]5 [place], [place] 76342125 Assigned Rheumatology Provider 07/02/24 Jelena David OD [address] [facility] [place] [address] Ophthalmology 08/30/24 [place] [address] [place] [address] Assigned Neuroscience Provider 09/30/24 Maru Man PA-C [address] [place] [address] Physician Slitter And Cutter Operator Dermatology 10/03/24 Maru Man PA-C [address] [place] [address] Physician Slitter And Cutter Operator Dermatology 10/22/24 Jelena David, SONJA [address] [facility] [place] [address] Assigned Surgical Provider 10/31/24 Fabiano [place], BRYCE [address] [place] [place] [address] Assigned Heart and Vascular Provider 11/30/24 documented as of this encounter
--- OUTSIDE RECORDS SUMMARY | 2024-12-17 21:38 | XMS_ITS | Encounter Summary ---
Author Organization [facility] Address [address] [place] [address] Care Team Providers Care Advertising Editor Name Role Phone Lita Oseguera Unavailable Unavailable Marija Edgar APRN DEXTRINE MIXER Primary Care Provider + Marija Edgar APRN DEXTRINE MIXER Unavailable [phone] Mynor Broussard MD Unavailable [phone] Keisha Dotson MD Unavailable [phone] Galo Burrell MD Unavailable Unavailable Diana Desir [facility] Unavailable Rain Galaviz PA-C Unavailable Summer Lara MD Unavailable [phone] Tavia Wyatt MD Unavailable Johnny Murillo MD Unavailable Erica Farrell APRN DEXTRINE MIXER Unavailable Tavia Wyatt MD Unavailable Diana Desir [facility] Unavailable Rich Barrett MD Unavailable [phone] Neil Kent MD Unavailable Roney StoryM Unavailable Erica Farrell APRN DEXTRINE MIXER Unavailable Diana Desir [facility] Unavailable Jelena David OD Unavailable Galo Burrell MD Unavailable Unavailable Livan Sharif MD Unavailable Livan Sharif MD Unavailable IsCatherine hobbs MD Unavailable + Valery Veronica PA-C Unavailable [phone] Catherine Cm MD Unavailable + Johnny Murillo MD Unavailable [phone] Brea Quinn BELLOWS FILLER DEXTRINE MIXER Unavailable [phone] Brea Quinn BELLOWS FILLER DEXTRINE MIXER Unavailable [phone] Jose Francisco Johnson MD Unavailable Livan Sharif MD Unavailable + IsCatherine hobbs MD Unavailable + Sydnie Martinez RN Unavailable Unavailable Alfonso Renteria MD Unavailable Esha Grimm PA-C Primary Care Provider Cheng Todd PA-C Unavailable Radha Lomeli BELLOWS FILLER DEXTRINE MIXER Unavailable [phone] Jelena David OD Unavailable Pao Joseph RN Unavailable Unavailable Esha Grimm-C Unavailable [phone] Valery Veronica PA-C Unavailable [phone] Rey Tay MD Unavailable Rocky Zepeda DO Unavailable Philip Dumont MD Unavailable [phone] DebiMeredith PA-C Unavailable [phone] Neil Kent MD Unavailable Juan Pablo Emmanuel MD Unavailable [phone] Audrey Waite PA-C Unavailable [phone] Valery Veronica PA-C Unavailable Herminia Hatch MD Unavailable Jelena David OD Unavailable Juan Pablo Emmanuel MD Unavailable [phone] Maru Man-C Unavailable [phone] Maru Man-C Unavailable [phone] Jelena David OD Unavailable Fabiano Correa NP Unavailable [phone] Reason for Visit * Reason Onset Date Comments Refill Request 10/31/2021 sertraline Encounter Details Date Type Department Care Team (Late st Contact Info) Description 10/31/[address] [address] Marija Edgar APRN [facility] [address] [facility] [address] [facility] [address] Refill Request (sertraline) Social History Tobacco [...] How often do you attend holiness or voodoo serv ices? Never 09/22/2021 Do [...] Answer Date Recorded PHQ-2 Score 2 09/22/2021 [facility] [place] of Occupat ional Health - Occupational Stress [...] a skilled nursing (including now)? No 09/22/2021 Brandywine Depression Scale Answer Date Recorded [place] Depression Score 5 01/14/2021 Last EPDS Self Harm Result Not on file 01/14 Education Answer Date Recorded What is the highest level of school you have completed or the highest degree you have received? 12th grade 08/07/2020 Comments No Sex and Gender Information Value Date Recorded Sex Assigned at Female 03/02/2021 5:45 PM CDT Legal Sex Female 4:13 AM CORPORATE SAFETY MANAGER Gender Identity Female 03/02/2021 5:45 PM CDT Sexual Orientation Straight 02/28/2020 12 :51 AM CDT COVID-19 Exposure Response Date Recorded In the last 10 days, have yo u been in contact with someone who was confirmed or suspected to have Coronavirus/COVID-19? No / Unsure 10/30/2021 10:32 AM CDT documented as of this encounter Miscellaneous Notes * Telephone Encounter - Diana Dseir, [facility] - 11/02/2021 8:58 AM CDT Approved per [facility] CPA. Diana Desir PharmD Medication Therapy Management Provider, [facility] Pager: [phone] * Telephone Encounter - Aleyda Scott RN [...] Pt has follow up tomorrow with [facility] pharmacist to continue to work on taper. Appointments in Next Year Nov 03, 2021 3:30 PM Pharmacist Visit with Diana Desir RPH [facility] ([facility] ) [phone] Informed patient that will route refill request [...] can be reached at: Other phone number: [phone] Best Time: ANYTIME Can we leave a detailed message on this number? YES Call taken on 10/31/2021 at 10:31 AM by Amalia Deluca documented in this encounter Plan of Treatment Upcoming Encounters Date Type Department Care Team (Late st Contact Info) Description 12/19/2024 2:00 PM CDT Office Visit [facility] [address] [place] [address] Lauren Claudio PA-C [id number] [place] [address] 12/26/2024 7:30 AM CDT Office Visit [facility] [address] [phone] Neil Kent MD [address] [place] [address] 04/16/2025 11:00 AM CDT Virtual Visit [facility] Gastroenterology [facility] [address] [place] [address] 4th [place] [phone] Meredith Carrera PA-C [address] [place] [address] documented as of this encounter Visit Diagnoses [...] Out COVID-19 05/17/2022 05/17/2022 05/17/2022 10:20 PM CORPORATE SAFETY MANAGER Rule Out COVID-19 06/09/2022 06/09/2022 06/09/2022 9:35 AM CORPORATE SAFETY MANAGER COVID-19 06/09/2022 06/09/2022 06/30/2022 11:4 1 PM CORPORATE SAFETY MANAGER Rule Out COVID-19 11/10/2022 11/10/2022 11/11/2022 [...] as of this encounter Care Teams Advertising Editor Relationship Specialty Start Date End Date Marija Edgar APRN DEXTRINE MIXER PCP - General Nurse Practitioner 04/30/20 04/14/23 Esha Grimm PA-C [address] [place] [address] PCP - General Family Medicine 05/04/23 Lita Oseguera Personal Advocate & Liaison (PAL) 02/28/20 03/27/23 Marija Edgar APRN DEXTRINE MIXER Assigned PCP 06/08/20 04/29/23 Mynor Broussard MD [address] [address] Assigned Surgical Provider 06/01/20 11/28/21 Keisha Dotson MD 909 [place] [address] Assigned Neuroscience Provider 06/04/20 04/01/23 Galo Burrell MD Assigned Heart and Vascular Provider 10/05/20 04/02/22 Diana Desir, [facility] [address] [place] [address] Pharmacist Pharmacist 04/17/21 Rain Galaviz PA-C [address] [place] [address] [place] [address] Physician Education Site Manager Dermatology 04/28/21 Summer Lara MD [address] [place] [address] Assigned OBGYN Provider 05/31/21 2 Tavia Wyatt MD [address] [place] [address] 109734 Dermatology 07/14/21 Johnny Murillo MD [facility] [place] [phone] [place] [address] Assigned Musculoskeletal Provider 08/30/21 03/17/22 Erica Farrell APRN DEXTRINE MIXER [address] [facility] [address] [place] [address] Nurse Practitioner Cardiovascular Disease 09/09/21 Tavia Wyatt MD [address] [place] [address] Assigned Surgical Provider 11/29/21 05/07/22 Diana Desir, [facility] [address] [place] [address] Assigned MTM Pharmacist 01/02/22 Rich Barrett MD [address] [place] [address] Physician Ophthalmology 01/21/22 Neil Kent MD 500 [place] [address] Dermatology 02/24/22 Roney Story DPM [address] [facility] [address] [place] [address] Assigned Musculoskeletal Provider 03/20/22 08/13/22 Erica Farrell APRN DEXTRINE MIXER 1700 [place] [address] Assigned Heart and Vascular Provider 04/03/22 04/16/22 Diana Desir, [facility] [address] [place] [address] Assigned MTM Pharmacist 04/07/22 Jelena David OD [address] [facility] [place] [address] Assigned Surgical Provider 05/08/22 10/08/22 Galo Burrell MD Assigned Heart and Vascular Provider 04/17/22 06/11/22 Livan Sharif MD [address] [place] [address] Cardiovascular Disease 05/14/22 Livan Sharif MD [address] [place] [address] Assigned Heart and Vascular Provider 06/12/22 07/23/22 Catherine Cm MD [address] [place] [address] Cardiovascular Disease 07/21/22 Valery Veronica, PAUcheC [address] [place] [address] 429985 Physician Education Site Manager Dermatology 07/21/22 Catherine Cm MD [address] [place] [address] Assigned Heart and Vascular Provider 07/24/22 11/05/22 Johnny Murillo MD [address] [place] [address] 001054 Assigned Musculoskeletal Provider 08/14/22 10/08/22 Brea Quinn APRN DEXTRINE MIXER [address] [place] [address] 198945 Nurse Practitioner Dermatology 09/21/22 Brea Quinn APRN DEXTRINE MIXER [address] [place] [address] [place] 599862 Assigned Surgical Provider 10/09/22 05/01/24 [place] [address] [place] [address] [place] [address] Assigned Musculoskeletal Provider 10/09/22 05/01/24 Livan Sharif MD [address] [place] 513935 Assigned Heart and Vascular Provider 11/06/22 11/12/22 Catherine Cm MD [address] [place] [address] Assigned Heart and Vascular Provider 11/13/22 05/27/23 Sydnie Martinez RN Personal Advocate & Liaison (PAL) Family Medicine 03/28/23 07/31/23 Alfonso Renteria MD [address] [facility] 200 [place] [address] Assigned Neuroscience Provider 04/02/23 09/29/24 Cheng Todd PA-C [address] [place] [address] [phone] Assigned PCP 04/30/23 07/15/23 Radha Lomeli APRN DEXTRINE MIXER [address] [place] [address] Assigned Heart and Vascular Provider 05/28/23 11/29/24 Jelena David OD [address] [facility] [place] [address] MD Ophthalmology 06/15/23 Pao Joseph, RN Personal Advocate & Liaison (PAL) Nurse 08/01/23 11/07/23 Esha Grimm PA-C [address] [place] [address] Assigned PCP 07/16/23 Valery Veronica PA-C [address] [place] [address] 040395 Physician Education Site Manager Dermatology 09/19/23 Rey Tay MD [address] [place] [address] 417035 MD Gastroenterology 09/20/23 Rocky Zepeda DO [address] [place] [address] 732145 Physician Gastroenterology 09/20/23 Philip Dumont MD [address] [place] [address] 768555 Physician Ophthalmology 09/22/23 Meredith Carrera PA-C [address] [place] [address] 040255 Assigned Gastroenterology Provider 11/01/23 Neli Kent MD [address] [place] [address] 288620 Dermatology 11/02/23 [place] [address] [place] [address] Neurological Surgery 12/26/23 Audrey Waite PA-C 500 [place] [address] Physician Education Site Manager Dermatology 02/28/24 Valery Veronica PA-C [address] [place] [address] Physician Education Site Manager Dermatology 04/10/24 Herminia Hatch MD [address] [place] [address] [id number] Assigned Rheumatology Provider 07/02/24 Jelena David OD [address] [place] [address] [place] [address] Ophthalmology 08/30/24 [place] [address] [place] [address] Assigned Neuroscience Provider 09/30/24 Maru Man PA-C [address] [place] [address] Physician Education Site Manager Dermatology 10/03/24 Maru Man PA-C [address] [place] [address] Physician Education Site Manager Dermatology 10/22/24 Jelena David OD [address] [place] [address] [place] [address] Assigned Surgical Provider 10/31/24 Fabiano Correa, VIDEO ARCADE MANAGER [address] [place] [address] Assigned Heart and Vascular Provider 11/30/24 documented as of this encounter
--- OUTSIDE RECORDS SUMMARY | 2024-12-17 21:38 | XMS_ITS | Encounter Summary ---
Author Organization [facility] Address [address] [place] [address] Care Team Providers Care Materials Coordinator Name Role Phone Lita Oseguera Unavailable Unavailable Marija Edgar APRN LOAN PROCESSOR Primary Care Provider + Marija Edgar APRN LOAN PROCESSOR Unavailable [phone] Mynor Broussard MD Unavailable [phone] Keisha Dotson MD Unavailable [phone] Galo Burrell MD Unavailable Unavailable Diana Desir [facility] Unavailable [phone] Rain Galaviz PA-C Unavailable Summer Lara MD Unavailable [phone] Tavia Wyatt MD Unavailable Johnny Murillo MD Unavailable Erica Farrell APRN LOAN PROCESSOR Unavailable Tavia Wyatt MD Unavailable Diana Desir [facility] Unavailable Rich Barrett MD Unavailable [phone] Neil Kent MD Unavailable Roney StoryM Unavailable Erica Farrell APRN LOAN PROCESSOR Unavailable Diana Desir [facility] Unavailable Jelena David OD Unavailable [phone] Galo Burrell MD Unavailable Unavailable Livan Sharif MD Unavailable Livan Sharif MD Unavailable IsCatherine hobbs MD Unavailable + Valery Veronica PA-C Unavailable [phone] Catherine Cm MD Unavailable + Johnny Murillo MD Unavailable [phone] Brea Quinn BRAND DEVELOPMENT MANAGER LOAN PROCESSOR Unavailable [phone] Brea Quinn BRAND DEVELOPMENT MANAGER LOAN PROCESSOR Unavailable [phone] Jose Francisco Johnson MD Unavailable Livan Sharif MD Unavailable + IsCatherine hobbs MD Unavailable + Sydnie Martinez RN Unavailable Unavailable Alfonso Renteria MD Unavailable Esha Grimm PA-C Primary Care Provider Cheng Todd PA-C Unavailable Radha Lomeli BRAND DEVELOPMENT MANAGER LOAN PROCESSOR Unavailable [phone] Jelena David OD Unavailable Pao Joseph RN Unavailable Unavailable Esha Grimm-C Unavailable [phone] Valery Veronica PA-C Unavailable [phone] Rey Tay MD Unavailable Rocky Zepeda DO Unavailable Philip Dumont MD Unavailable [phone] Byron Carreranahed Troncoso PA-C Unavailable [phone] Neil Kent MD Unavailable Juan Pablo Emmanuel MD Unavailable [phone] Audrey Waite PA-C Unavailable [phone] Valery Veronica PA-C Unavailable Herminia Hatch MD Unavailable Jelena David OD Unavailable [phone] Juan Pablo Emmanuel MD Unavailable Maru Man-C Unavailable [phone] Maru Man-C Unavailable [phone] Jelena David OD Unavailable [phone] Fabiano Correa NP Unavailable [phone] Encounter Details Date Type Department Care Team (Late st Contact Info) Description 10/28/2021 MyC Medical Advice [facility] [address] [place] [address] Erica Farrell, ARLENE LOAN PROCESSOR [address] [place], [place] [phone] Social History Tobacco Use Types Packs/Day Years [...] How often do you attend yazdanism or presybeterian serv ices? Never 09/22/2021 Do [...] Answer Date Recorded PHQ-2 Score 2 09/22/2021 [facility] of Occupat ional [...] in a long-term (including now)? No 09/22/2021 [place] Depression Scale Answer Date Recorded [place] Depression Score 5 01/14/2021 Last EPDS Self Harm Result Not on file 01/14 Education Answer Date Recorded What is the highest level of school you have completed or the highest degree you have received? 12th grade 08/07/2020 Comments No Sex and Gender Information Value Date Recorded Sex Assigned at Female 03/02/2021 5:45 PM CDT Legal Sex Female 4:13 AM TORSION SPRING COILING MACHINE SETTER Gender Identity Female 03/02/2021 5:45 [...] Description 12/19/2024 2:00 PM CDT Office Visit [address] [address] Lauren Claudio PA-C [address] [place] [address] 12/26/2024 7:30 AM CDT Office Visit [facility] [address] [phone] Neil Kent MD [address] [place] [address] 092415 04/16/2025 11:00 AM CDT Virtual Visit [facility] [address] 4th [place] [phone] Meredith Carrera PA-C [address] [place] [address] documented as of this encounter Visit Diagnoses Not on filedocumented in this encounter Additional Health Concerns Infection Onset Date Last Indicated Resolved Time Rule Out COVID-19 12/18/2021 12/18/2021 12/19/2021 11:34 AM CDT Rule Out COVID-19 02/24/2022 02/24/2022 02/25/2022 1:08 PM CDT Rule Out COVID-19 04/26/2022 04/26/2022 04/26/2022 6:47 AM CDT Rule Out COVID-19 05/17/2022 05/17/2022 05/17/2022 10:20 PM TORSION SPRING COILING MACHINE SETTER Rule Out COVID-19 06/09/2022 06/09/2022 06/09/2022 9:35 AM TORSION SPRING COILING MACHINE SETTER COVID-19 06/09/2022 06/09/2022 06/30/2022 11:4 1 PM TORSION SPRING COILING MACHINE SETTER Rule Out COVID-19 11/10/2022 11/10/2022 [...] as of this encounter Care Teams Materials Coordinator Relationship Specialty Start Date End Date Marija Edgar APRN LOAN PROCESSOR PCP - General Nurse Practitioner 04/30/20 04/14/23 Esha Grimm PA-C [address] [place] [phone] PCP - General Family Medicine 05/04/23 Lita Oseguera Personal Advocate & Liaison (PAL) 02/28/20 03/27/23 Marija Edgar APRN LOAN PROCESSOR Assigned PCP 06/08/20 04/29/23 Mynor Broussard MD [address] [address] Assigned Surgical Provider 06/01/20 11/28/21 Keisha Dotson MD [address] [place] [address] 823425 Assigned Neuroscience Provider 06/04/20 04/01/23 Galo Burrell MD Assigned Heart and Vascular Provider 10/05/20 04/02/22 [facility] [address] [place] [address] Pharmacist Pharmacist 04/17/21 Rain Galaviz PA-C [address] [place] [address] [place] [address] Physician Conditioning Room Worker Dermatology 04/28/21 Summer Lara MD [address] [place] [address] 285664 Assigned OBGYN Provider 05/31/21 2 Tavia Wyatt MD [address] [facility] [address] [place], [place] 163454 Dermatology 07/14/21 Johnny Murillo MD [address] [place], [place] 042064 Assigned Musculoskeletal Provider 08/30/21 03/17/22 Erica Farrell APRN LOAN PROCESSOR 6[address] [facility] [address] [place], [place] 198145 Nurse Practitioner Cardiovascular Disease 09/09/21 Tavia Wyatt MD [address] [place], [place] 055960 Assigned Surgical Provider 11/29/21 05/07/22 Diana Desir, [facility] 30[address] [place] [address] Assigned MTM Pharmacist 01/02/22 Rich Barrett MD [address] [place] [address] Physician Ophthalmology 01/21/22 Neil Kent MD 500 [place], [place] 648205 Dermatology 02/24/22 Roney Story DPM [address] [facility] [address] [place], [place] 777047 Assigned Musculoskeletal Provider 03/20/22 08/13/22 Erica Farrell APRN LOAN PROCESSOR 1700 [place] [address] Assigned Heart and Vascular Provider 04/03/22 04/16/22 Diana Desir, [facility] [address] [place] [address] Assigned MTM Pharmacist 04/07/22 Jelena David OD [address] [facility] [place] [address] Assigned Surgical Provider 05/08/22 10/08/22 Galo Burrell MD Assigned Heart and Vascular Provider 04/17/22 06/11/22 Livan Sharif MD [address] [place] [address] Cardiovascular Disease 05/14/22 Livan Sharif MD [address] [facility] [address] [place] [address] Assigned Heart and Vascular Provider 06/12/22 07/23/22 Catherine Cm MD [address] [facility] [address] [place] [address] Cardiovascular Disease 07/21/22 Valery Veronica, PAUcheC [address] [place] [address] Physician Conditioning Room Worker Dermatology 07/21/22 Catherine Cm MD [address] [facility] [address] [place] [address] Assigned Heart and Vascular Provider 07/24/22 11/05/22 Johnny Murillo MD [address] [place] [address] Assigned Musculoskeletal Provider 08/14/22 10/08/22 Brea Quinn APRN LOAN PROCESSOR [address] [place] [address] Nurse Practitioner Dermatology 09/21/22 Brea Quinn APRN LOAN PROCESSOR [address] [place] [address] [place] [address] Assigned Surgical Provider 10/09/22 05/01/24 [place] [address] [place] [address] Assigned Musculoskeletal Provider 10/09/22 05/01/24 Livan Sharif MD [address] [place] [address] Assigned Heart and Vascular Provider 11/06/22 11/12/22 Catherine Cm MD [address] [place] [address] Assigned Heart and Vascular Provider 11/13/22 05/27/23 Sydnie Martinez RN Personal Advocate & Liaison (PAL) Family Medicine 03/28/23 07/31/23 Alfonso Renteria MD 5775 [facility] 200 [place] [address] Assigned Neuroscience Provider 04/02/23 09/29/24 Cheng Todd PA-C [address] [place] [address] Assigned PCP 04/30/23 07/15/23 Radha Lomeli, ARLENE LOAN PROCESSOR [address] [place] [address] Assigned Heart and Vascular Provider 05/28/23 11/29/24 Jelena David OD [facility] [facility] [place] [address] Ophthalmology 06/15/23 Pao Joseph, VJ Personal Advocate & Liaison (PAL) Nurse 08/01/23 11/07/23 Esha Grimm PA-C [address] [place] [address] Assigned PCP 07/16/23 Valery Veronica PA-C [address] [place] [address] 774635 Physician Conditioning Room Worker Dermatology 09/19/23 Rey Tay MD [address] [place] [address] 340915 MD Gastroenterology 09/20/23 Rocky Zepeda DO [address] [place] [address] 126205 Physician Gastroenterology 09/20/23 Philip Dumont MD [address] [place] [address] 948425 Physician Ophthalmology 09/22/23 Meredith Carrera PA-C [address] [place] [address] 808795 Assigned Gastroenterology Provider 11/01/23 Neil Kent MD [address] [address] Dermatology 11/02/23 [place] [address] [place] [address] Neurological Surgery 12/26/23 Audrey Waite PA-C [address] [place] [address] Physician Conditioning Room Worker Dermatology 02/28/24 Valery Veronica PA-C [address] [place] [address] Physician Conditioning Room Worker Dermatology 04/10/24 Herminia Hatch MD [address] [place] [address] Assigned Rheumatology Provider 07/02/24 Jelena David, SONJA [address] [place] [address] [place] [address] Ophthalmology 08/30/24 [place] [address] [place] [address] Assigned Neuroscience Provider 09/30/24 Maru Man PA-C [address] [place] [address] Physician Conditioning Room Worker Dermatology 10/03/24 Maru Man PA-C [address] [place] [address] Physician Conditioning Room Worker Dermatology 10/22/24 Jelena David, SONJA [address] [place] [address] [place] [address] Assigned Surgical Provider 10/31/24 Fabiano Correa NP [address] [place] [address] Assigned Heart and Vascular Provider 11/30/24 documented as of this encounter
--- OUTSIDE RECORDS SUMMARY | 2024-12-17 21:38 | XMS_ITS | Encounter Summary ---
Author Organization [facility] Address [address] [place] [address] Care Team Providers Care Lead Pony Rider Name Role Phone Lita Oseguera Unavailable Unavailable Marija Edgar APRN ARCHITECTURAL ASSOCIATE Primary Care Provider + Marija Edgar APRN ARCHITECTURAL ASSOCIATE Unavailable [phone] Mynor Broussard MD Unavailable [phone] Keisha Dotson MD Unavailable Galo Burrell MD Unavailable Unavailable Diana Desir [facility] Unavailable Rain Galaviz PA-C Unavailable Summer Lara MD Unavailable [phone] Tavia Wyatt MD Unavailable Johnny Murillo MD Unavailable Erica Farrell APRN ARCHITECTURAL ASSOCIATE Unavailable Tavia Wyatt MD Unavailable Diana Desir [facility] Unavailable Rich Barrett MD Unavailable [phone] Neil Kent MD Unavailable Roney StoryM Unavailable Erica Farrell APRN ARCHITECTURAL ASSOCIATE Unavailable Diana Desir [facility] Unavailable Jelena David OD Unavailable Galo Burrell MD Unavailable Unavailable Livan Sharif MD Unavailable Livan Sharif MD Unavailable IsCatherine hobbs MD Unavailable + Valery Veronica PA-C Unavailable [phone] Catherine Cm MD Unavailable + Johnny Murillo MD Unavailable [phone] Brea Quinn DIRECTOR MONEY ARCHITECTURAL ASSOCIATE Unavailable [phone] Brea Quinn DIRECTOR MONEY ARCHITECTURAL ASSOCIATE Unavailable [phone] Jose Francisco Johnson MD Unavailable Livan Sharif MD Unavailable + IsCatherine hobbs MD Unavailable + Sydnie Martinez RN Unavailable Unavailable Alfonso Renteria MD Unavailable Esha Grimm PA-C Primary Care Provider Cheng Todd PA-C Unavailable Radha Lomeli DIRECTOR MONEY ARCHITECTURAL ASSOCIATE Unavailable [phone] Jelena David OD Unavailable Pao Joseph RN Unavailable Unavailable Esha Grimm-C Unavailable [phone] Valery Veronica PA-C Unavailable [phone] Rey Tay MD Unavailable Rocky Zepeda DO Unavailable Philip Dumont MD Unavailable [phone] Debi Meredith A PA-C Unavailable [phone] Neil Kent MD Unavailable Juan Pablo Emmanuel MD Unavailable Audrey Waite PA-C Unavailable [phone] Valery Veronica PA-C Unavailable [phone] Herminia Hatch MD Unavailable Jelena David OD Unavailable [phone] Juan Pablo Emmanuel MD Unavailable [phone] Maru Man-C Unavailable [phone] Maru Man-C Unavailable [phone] Jelena David OD Unavailable Fabiano Correa LEARNING STRATEGIST Unavailable [phone] Encounter Details Date Type Department Care Team (Late st Contact Info) Description 11/16/2021 [facility] [address] [address] Diana Desir, [facility] [address] [place], [place] [phone] Social History Tobacco Use Types Packs/Day Years [...] in a usp (including now)? No 09/22/2021 Osyka Depression Scale Answer Date Recorded Osyka Depression Score 5 01/14/2021 Last EPDS Self Harm Result Not on file 01/14 Education Answer Date Recorded What is the highest level of school you have completed or the highest degree you have received? 12th grade 08/07/2020 Comments No Sex and Gender Information Value Date Recorded Sex Assigned at Female 03/02/2021 5:45 PM CDT Legal Sex Female 4:13 AM HEALTHCARE FINANCIAL ANALYST Gender Identity Female 03/02/2021 5:45 PM [...] Description 12/19/2024 2:00 PM CDT Office Visit [address] [address] Lauren Claudio PA-C [address] [place] [address] 12/26/2024 7:30 AM CDT Office Visit [facility] [address] [phone] Neil Kent MD [address] [place] [address] 199235 04/16/2025 11:00 AM CDT Virtual Visit [facility] [place] [address] [facility] 4th [place] [phone] Meredith Carrera PA-C [address] [place] [address] documented as of this encounter Visit Diagnoses Not on filedocumented in this encounter Additional Health Concerns Infection Onset Date Last Indicated Resolved Time Rule Out COVID-19 12/18/2021 12/18/2021 12/19/2021 11:34 AM CDT Rule Out COVID-19 02/24/2022 02/24/2022 02/25/2022 1:08 PM CDT Rule Out COVID-19 04/26/2022 04/26/2022 04/26/2022 6:47 AM CDT Rule Out COVID-19 05/17/2022 05/17/2022 05/17/2022 10:20 PM HEALTHCARE FINANCIAL ANALYST Rule Out COVID-19 06/09/2022 06/09/2022 06/09/2022 9:35 AM HEALTHCARE FINANCIAL ANALYST COVID-19 06/09/2022 06/09/2022 06/30/2022 11:4 1 PM HEALTHCARE FINANCIAL ANALYST Rule Out COVID-19 11/10/2022 11/10/2022 11/11/2022 [...] as of this encounter Care Teams Lead Pony Rider Relationship Specialty Start Date End Date Marija Edgar APRN ARCHITECTURAL ASSOCIATE PCP - General Nurse Practitioner 04/30/20 04/14/23 Esha Grimm PA-C [address] [place] [phone] PCP - General Family Medicine 05/04/23 Lita Oseguera Personal Advocate & Liaison (PAL) 02/28/20 03/27/23 Marija Edgar APRN ARCHITECTURAL ASSOCIATE Assigned PCP 06/08/20 04/29/23 Mynor Broussard MD [address] [address] Assigned Surgical Provider 06/01/20 11/28/21 Keisha Dotson MD 9 [place] [address] Assigned Neuroscience Provider 06/04/20 04/01/23 Galo Burrell MD Assigned Heart and Vascular Provider 10/05/20 04/02/22 Diana Desir, [facility] [address] [place] [address] Pharmacist Pharmacist 04/17/21 Rain Galaviz PA-C [address] [place] [address] [place] [address] Physician Manager Transport Dermatology 04/28/21 Summer aLra MD [address] [place] [address] 108464 Assigned OBGYN Provider 05/31/21 2 Tavia Wyatt MD [address] [place] [address] 446794 Dermatology 07/14/21 Johnny Murillo MD [address] [place], [place] 369464 Assigned Musculoskeletal Provider 08/30/21 03/17/22 Erica Farrell APRN ARCHITECTURAL ASSOCIATE 6[address] [facility] [address] [place], [place] [address] Nurse Practitioner Cardiovascular Disease 09/09/21 Tavia Wyatt MD [address] [place], [place] 624420 Assigned Surgical Provider 11/29/21 05/07/22 Diana Desir, [facility] [address] [place] [address] Assigned MTM Pharmacist 01/02/22 Rich Barrett MD [address] [place] [address] Physician Ophthalmology 01/21/22 Neil Kent MD 500 [place], [place] 942365 Dermatology 02/24/22 Roney Story DPM [address] [place] [facility] [address] [place], [place] 5[address] Assigned Musculoskeletal Provider 03/20/22 08/13/22 Erica Farrell APRN ARCHITECTURAL ASSOCIATE 1700 [place] [address] Assigned Heart and Vascular Provider 04/03/22 04/16/22 Diana Desir, [facility] [address] [place] [address] Assigned MTM Pharmacist 04/07/22 Jelena David OD [address] [facility] [place] [address] Assigned Surgical Provider 05/08/22 10/08/22 Galo Burrell MD Assigned Heart and Vascular Provider 04/17/22 06/11/22 Livan Sharif MD 6405 [facility] [address] [place] 499[address] Cardiovascular Disease 05/14/22 Livan Sharif MD 6[address] [facility] [address] [place] [address] Assigned Heart and Vascular Provider 06/12/22 07/23/22 Catherine Cm MD 6405 [facility] [address] [place] [address] Cardiovascular Disease 07/21/22 Valery Veronica, PA-C [address] [place] [address] Physician Manager Transport Dermatology 07/21/22 Catherine Cm MD [address] [place] [address] [place] [address] Assigned Heart and Vascular Provider 07/24/22 11/05/22 Johnny Murillo MD [address] [place] [address] 279394 Assigned Musculoskeletal Provider 08/14/22 10/08/22 Brea Quinn APRN ARCHITECTURAL ASSOCIATE [address] [place] [address] Nurse Practitioner Dermatology 09/21/22 Brea Quinn APRN ARCHITECTURAL ASSOCIATE [address] [place] [address] [place] [address] Assigned Surgical Provider 10/09/22 05/01/24 [place] [address] [place] [address] Assigned Musculoskeletal Provider 10/09/22 05/01/24 Livan Sharif MD [address] [facility] [address] [place] [address] Assigned Heart and Vascular Provider 11/06/22 11/12/22 Catherine Cm MD [address] [facility] [address] [place] [address] Assigned Heart and Vascular Provider 11/13/22 05/27/23 Sydnie Martinez RN Personal Advocate & Liaison (PAL) Family Medicine 03/28/23 07/31/23 Alfonso Renteria MD 5775 [facility] 200 [place] [address] Assigned Neuroscience Provider 04/02/23 09/29/24 Cheng Todd PA-C [address] [place] [address] Assigned PCP 04/30/23 07/15/23 Radha Lomeli APRN ARCHITECTURAL ASSOCIATE [address] [place] [address] Assigned Heart and Vascular Provider 05/28/23 11/29/24 Jelena David OD [address] [facility] [place] [address] Ophthalmology 06/15/23 Pao Joseph, VJ Personal Advocate & Liaison (PAL) Nurse 08/01/23 11/07/23 Esha Grimm PA-C [address] [place] [phone] Assigned PCP 07/16/23 Valery Veronica PA-C [address] [place] [address] 725755 Physician Manager Transport Dermatology 09/19/23 Rey Tay MD [address] [place] [address] 650385 MD Gastroenterology 09/20/23 Rocky Zepeda DO [address] [place] [address] 510515 Physician Gastroenterology 09/20/23 Philip Dumont MD [address] [place] [address] 488005 Physician Ophthalmology 09/22/23 Meredith Carrera PA-C [address] [place] [address] Assigned Gastroenterology Provider 11/01/23 Neil Kent MD [address] [address] Dermatology 11/02/23 [place] [address] [place] [address] Neurological Surgery 12/26/23 Audrey Waite PA-C [address] [place] [address] Physician Manager Transport Dermatology 02/28/24 Valery Veronica PA-C [address] [place] [address] Physician Manager Transport Dermatology 04/10/24 Herminia Hatch MD [address] [place] [address] [phone] Assigned Rheumatology Provider 07/02/24 Jelena David OD [address] [place] [address] [place] [address] Ophthalmology 08/30/24 [place] [address] [place] [address] Assigned Neuroscience Provider 09/30/24 Maru Man PA-C [address] [place] [address] Physician Manager Transport Dermatology 10/03/24 Maru Man PA-C [address] [place] [address] Physician Manager Transport Dermatology 10/22/24 Jelena David, SONJA [address] [place] [address] [place] [address] Assigned Surgical Provider 10/31/24 Fabiano Correa NP [address] [place] [address] Assigned Heart and Vascular Provider 11/30/24 documented as of this encounter
--- OUTSIDE RECORDS SUMMARY | 2024-12-17 21:39 | XMS_ITS | Encounter Summary ---
Author Organization [facility] Address [address] [place] [address] Care Team Providers Care Navy Material Inspector Name Role Phone Diana Desir [facility] Unavailable [phone] Rain Galaviz PA-C Unavailable Tavia Wyatt MD Unavailable [phone] Erica Farrell APRN LAB HEAD Unavailable Rich Barrett MD Unavailable [phone] Neil Kent MD Unavailable Diana Desir [facility] Unavailable Livan Sharif MD Unavailable Catherine Cm MD Unavailable + Valery Veronica PA-C Unavailable Brea Quinn RAISIN SEPARATOR OPERATOR LAB HEAD Unavailable [phone] Brea Quinn RAISIN SEPARATOR OPERATOR LAB HEAD Unavailable Jose Francisco Johnson MD Unavailable Alfonso Renteria MD Unavailable [phone] Esha Grimm PA-C Primary Care Provider Radha Lomeli APRN LAB HEAD Unavailable Jelena David OD Unavailable [phone] Esha Grimm PA-C Unavailable [phone] Valery Veronica PA-C Unavailable Rey Tay [...] Contact Info) Description 02/01/2024 My[facility] Medical Advice [facility] Neurology [address], [address] [place] [address] Macy Pinedo, RN Social History [...] Score 0 10/25/2023 [facility] - Occupational [...] exercise at this level? 30 min 03/10/2023 Jordan Depression Scale Answer Date Recorded Jordan Depression Score 5 01/14/2021 Last EPDS Self [...] CDT Legal Sex Female 4:13 AM MINE PRODUCTION ENGINEER Gender Identity Female 03/02/2021 5:45 PM CDT Sexual Orientation Straight 02/28/2020 12 :51 AM CDT documented as of this encounter Plan of Treatment Upcoming Encounters Date Type Department Care Team (Late st Contact Info) Description 12/19/2024 2:00 PM CDT Office Visit [facility] [address] [place] [phone] Lauren Claudio PA-C [address] [place] [address] 12/26/2024 7:30 AM CDT Office Visit [facility] [address] [phone] Neil Kent MD 500 [place] [address] 04/16/2025 11:00 AM CDT Virtual Visit [facility]ology [facility] [place] 909 [facility] 4th [place] [phone] Meredith Carrera PA-C [address] [place] [address] 289785 documented as of this encounter Visit Diagnoses [...] Total Score: 4 06/20/20 23 8:40 AM MINE PRODUCTION ENGINEER documented as of this encounter Care Teams Navy Material Inspector Relationship Specialty Start Date End Date Esha Grimm PA-C [address] [place] [address] PCP - General Family Medicine 05/04/23 Diana Desir [facility] [address] [place] [address] Pharmacist Pharmacist 04/17/21 Rain Galaviz PA-C [address] [place] [address] [address] [place] [address] Physician Solderer Dermatology 04/28/21 Tavia Wyatt MD [address] [place] [address] DR [address] Lara [place] [address] Dermatology 07/14/21 Erica Farrell APRN LAB HEAD [address] [place] 153465 Nurse Practitioner Cardiovascular Disease 09/09/21 Rich Barrett MD [address] [place] 764435 Physician Ophthalmology 01/21/22 Neil Kent MD 500 [place], [place] 700245 Dermatology 02/24/22 Diana Desir, [facility] [address] [place] [address] Assigned MTM Pharmacist 04/07/22 Livan Sharif MD [address] [place] [address] [place] 911055 Cardiovascular Disease 05/14/22 Catherine Cm MD [address] [place] [address] [place] 033405 Cardiovascular Disease 07/21/22 Valery Veronica PA-C 909 [place] [address] Physician Solderer Dermatology 07/21/22 Brea Quinn APRN LAB HEAD 500 [place], [place] 640415 Nurse Practitioner Dermatology 09/21/22 Brea Quinn APRN LAB HEAD 6401 [facility] [place] 8[address]102 Assigned Surgical Provider 10/09/22 05/01/24 [place] [address] [address] [facility] 300 [place] [address] Assigned Musculoskeletal Provider 10/09/22 05/01/24 Alfonso Renteria MD 5775 [facility] 200 [place], [place] [address] Assigned Neuroscience Provider 04/02/23 09/29/24 Radha Lomeli APRN LAB HEAD 6405 [facility] [address] [place] 693845 Assigned Heart and Vascular Provider 05/28/23 11/29/24 Jelena David OD [address] [facility] [address] [place] [phone] Ophthalmology 06/15/23 Esha Grimm PA-C [address] [place] [address]69783 Assigned PCP 07/16/23 Valery Veronica PA-C 9 [place] [address] Physician Solderer Dermatology 09/19/23 Rey Tay MD [address] [place] [address] MD Gastroenterology 09/20/23 Rocky Zepeda DO [address] [place] [address] 022995 Physician Gastroenterology 09/20/23 Philip Dumont MD [address] [place] [address] 108215 Physician Ophthalmology 09/22/23 Meredith Carrera PA-C [address] [place] [address] 063145 Assigned Gastroenterology Provider 11/01/23 Neil Kent MD [address] [address] Dermatology 11/02/23 [place] [address] [address] [facility] [place] [address] Neurological Surgery 12/26/23 Audrey Waite PA-C [address] [place] [address] Physician Solderer Dermatology 02/28/24 Valery Veronica PA-C [address] [place] [address] Physician Solderer Dermatology 04/10/24 Herminia Hatch MD [facility] [place] [address] Assigned Rheumatology Provider 07/02/24 Jelena David OD [address] [place] [address] [place] [address] Ophthalmology 08/30/24 [place] [address] [place] [address] Assigned Neuroscience Provider 09/30/24 Maru Man PA-C [address] [place] [address] Physician Solderer Dermatology 10/03/24 Maru Man PA-C [address] [place] [address] Physician Solderer Dermatology 10/22/24 Jelena David OD [address] [place] [address] [place] [address] Assigned Surgical Provider 10/31/24 Fabiano [place] NP [address] [place] [address] Assigned Heart and Vascular Provider 11/30/24 documented as of this encounter
--- OUTSIDE RECORDS SUMMARY | 2024-12-17 21:39 | XMS_ITS ---
Author Organization [facility] Address [address] [place] [address] Care Team Providers Care Dress Cutter Name Role Phone Diana Desir [facility] Unavailable Rain Galaviz PA-C Unavailable Tavia Wyatt MD Unavailable Erica Farrell APRN ESTATE PLANNER Unavailable Rich Barrett MD Unavailable [phone] Neil Kent MD Unavailable Diana Desir [facility] Unavailable Livan Sharif MD Unavailable Catherine Cm MD Unavailable + Valery VeronicaC Unavailable [phone] Brea Quinn APRN ESTATE PLANNER Unavailable Esha Grimm PA-C Primary Care Provider [phone] Jelena David OD Unavailable Esha Grimm PA-C Unavailable [phone] Valery Veronica PA-C Unavailable Rey Tay MD Unavailable DuaneRocky Unavailable Philip Dumont MD Unavailable [phone] Meredith Carrera PA-C Unavailable [phone] Neil Kent MD Unavailable Juan Pablo Emmanuel MD Unavailable Audrey Waite PA-C Unavailable [phone] Valery Veronica PA-C Unavailable [phone] Herminia Hatch MD Unavailable Jelena David OD Unavailable Juan Pablo Emmanuel MD Unavailable [phone] Maru ManC Unavailable [phone] Maru ManC Unavailable [phone] Jelena David OD Unavailable Fabiano Cor[place] NP Unavailable Transitional Care Management Status:Closed (Closed) Start date:11/23/2024 Enrollment date:11/23/2024 End date:12/07/2024 Close reason:Goals met Continued Care and Services Coordination
--- OUTSIDE RECORDS SUMMARY | 2024-12-17 21:39 | XMS_ITS | Encounter Summary ---
Author Organization [facility] Address [address] [place] [address] Care Team Providers Care Mortgage Analyst Name Role Phone Lita Oseguera Unavailable Unavailable Marija Edgar APRN NEUROLOGY PROFESSOR Primary Care Provider + Marija Edgar APRN NEUROLOGY PROFESSOR Unavailable [phone] Keisha Dotson MD Unavailable [phone] Diana Desir [facility] Unavailable Rain Galaviz PA-C Unavailable [phone] Tavia Wyatt MD Unavailable Erica Farrell APRN NEUROLOGY PROFESSOR Unavailable Rich Barrett MD Unavailable [phone] Neil Kent MD Unavailable Diana Desir [facility] Unavailable Livan Sharif MD Unavailable Catherine Cm MD Unavailable + Valery Veronica PA-C Unavailable [phone] Brea Quinn MACHINE WHITENER NEUROLOGY PROFESSOR Unavailable Brea Quinn MACHINE WHITENER NEUROLOGY PROFESSOR Unavailable Jose Francisco Johnson MD Unavailable Catherine Cm MD Unavailable + Sydnie Martinez RN Unavailable Unavailable Alfonso Renteria MD Unavailable [phone] Esha Grimm PA-C Primary Care Provider Cheng Todd PA-C Unavailable Armani Radha Stovall ARLENE NEUROLOGY PROFESSOR Unavailable Jelena David OD Unavailable Pao Joseph RN Unavailable Unavailable Esha Grimm PA-C Unavailable [phone] Valery Veronica PA-C Unavailable Rey Tay MD Unavailable Rocky Zepeda DO Unavailable Philip Dumont MD Unavailable [phone] Meredith Carrera PA-C Unavailable [phone] Neil Kent MD Unavailable Juan Pablo Emmanuel MD Unavailable Audrey Waite PA-C Unavailable Valery Veronica PA-C Unavailable Herminia Hatch MD Unavailable Jelena David OD Unavailable [phone] Juan Pablo Emmanuel MD Unavailable [phone] Maru Man PA-C Unavailable [phone] Maru Man PA-C Unavailable [phone] Jelena David OD Unavailable Fabiano Correa NP Unavailable Encounter Details Date Type Department Care Team (Late st Contact Info) Description 01/28/2023 MyC Medical Advice [facility] [place] 762115 [facility] [address] [place] [phone] Margaret Rendon, RN Social History Tobacco [...] How often do you attend restoration or caodaism serv ices? Never 09/22/2021 Do [...] Date Recorded PHQ-2 Score 1 10/11/2022 [facility] [...] in a assisted (including now)? No 09/22/2021 [place] Depression Scale Answer Date Recorded [...] CDT Legal Sex Female 4:13 AM CENTER RECEPTIONIST Gender Identity Female 03/02/2021 5:45 PM CDT [...] Description 12/19/2024 2:00 PM CDT Office Visit [address] [phone] Lauren Claudio PA-C [address] [place] [address] 12/26/2024 7:30 AM CDT Office Visit [address] [phone] Neil Kent MD [address] [place] [address] [phone] 04/16/2025 11:00 AM CDT Virtual Visit [facility] [address] 4th [place] [phone] Meredith Carrera PA-C [address] [place] [address] [phone] documented as of this encounter Visit Diagnoses [...] as of this encounter Care Teams Mortgage Analyst Relationship Specialty Start Date End Date Marija Edgar APRN NEUROLOGY PROFESSOR PCP - General Nurse Practitioner 04/30/20 04/14/23 Esha Grimm PA-C [address] [place] [address] PCP - General Family Medicine 05/04/23 Lita Oseguera Personal Advocate & Liaison (PAL) 02/28/20 03/27/23 Marija Edgar APRN NEUROLOGY PROFESSOR Assigned PCP 06/08/20 04/29/23 Keisha Dotson MD [address] [place] [address] Assigned Neuroscience Provider 06/04/20 04/01/23 Diana Desir [facility] [address] [place] [address] Pharmacist Pharmacist 04/17/21 Rain Galaviz PA-C [address] [place] [address] [address] [place] [address] Physician Customs Import Specialist Dermatology 04/28/21 Tavia Wyatt MD [address] [place] [address] [address] Lara [place] [address] Dermatology 07/14/21 Erica Farrell APRN NEUROLOGY PROFESSOR [address] [place] [address] Nurse Practitioner Cardiovascular Disease 09/09/21 Rich Barrett MD [address] [place] [address] Physician Ophthalmology 01/21/22 Neil Kent MD 500 [place] [address] Dermatology 02/24/22 [facility] [address] [place] [address] Assigned MTM Pharmacist 04/07/22 Livan Sharif MD [address] [place] [address] Cardiovascular Disease 05/14/22 Catherine Cm MD [address] [place] [address] Cardiovascular Disease 07/21/22 Valery Veronica PA-C 909 [place] [address] Physician Customs Import Specialist Dermatology 07/21/22 Brea Quinn APRN NEUROLOGY PROFESSOR 500 [place] [address] Nurse Practitioner Dermatology 09/21/22 Brea Quinn APRN NEUROLOGY PROFESSOR [address] [place] [address] Assigned Surgical Provider 10/09/22 05/01/24 [place] [address] [facility] [address] [place] [address] Assigned Musculoskeletal Provider 10/09/22 05/01/24 Catherine Cm MD [address] [place] [id number] [place] [address] Assigned Heart and Vascular Provider 11/13/22 05/27/23 Sydnie Martinez RN Personal Advocate & Liaison (PAL) Family Medicine 03/28/23 07/31/23 Alfonso Renteria MD 5775 [facility] 200 [place], [place] 260686 Assigned Neuroscience Provider 04/02/23 09/29/24 Cheng Todd PA-C [address] [place] [address] [phone] Assigned PCP 04/30/23 07/15/23 Radha Lomeli APRN NEUROLOGY PROFESSOR [address] [facility] [address] [place] [address] Assigned Heart and Vascular Provider 05/28/23 11/29/24 Jelena David OD [address] [place] [address] MD Ophthalmology 06/15/23 Pao Joseph, VJ Personal Advocate & Liaison (PAL) Nurse 08/01/23 11/07/23 Esha Grimm PA-C [address] [place] [phone] Assigned PCP 07/16/23 Valery Veronica PA-C [address] [place] [address] [phone] Physician Customs Import Specialist Dermatology 09/19/23 Rey Tay MD [address] [place] [address] 647265 MD Gastroenterology 09/20/23 Rocky Zepeda DO [address] [place] [address] 102425 Physician Gastroenterology 09/20/23 Philip Dumont MD [address] [place] [address] [phone] Physician Ophthalmology 09/22/23 Meredith Carrera PA-C [address] [place] [address] 038915 Assigned Gastroenterology Provider 11/01/23 Neil Kent MD [address] [place] [address] MD Dermatology 11/02/23 [place] [address] [place] [address] Neurological Surgery 12/26/23 Audrey Waite PA-C [address] [place] [address] Physician Customs Import Specialist Dermatology 02/28/24 Valery Veronica PA-C 5[address]18 [place] [address] Physician Customs Import Specialist Dermatology 04/10/24 Herminia Hatch MD [address] [place] [address] [phone] Assigned Rheumatology Provider 07/02/24 Jelena David OD [address] [place] [address] [place] [address] Ophthalmology 08/30/24 [place] [address] [place] [address] Assigned Neuroscience Provider 09/30/24 Maru Man PA-C [address] [place] [address] Physician Customs Import Specialist Dermatology 10/03/24 Maru Man PA-C [address] [place] [address] Physician Customs Import Specialist Dermatology 10/22/24 Jelena David OD [address] [facility] [address] Assigned Surgical Provider 10/31/24 Fabiano Correa NP [address] [place] [address] Assigned Heart and Vascular Provider 11/30/24 documented as of this encounter
--- OUTSIDE RECORDS SUMMARY | 2024-12-17 21:39 | XMS_ITS | Encounter Summary ---
Author Organization [facility] Address [address] [place] [address] Care Team Providers Care Dental Laboratory Assistant Name Role Phone Lita Oseguera Unavailable Unavailable Marija Edgar APRN [employer] CONSULTANT Primary Care Provider + Marija Edgar APRN [employer] CONSULTANT Unavailable Mynor Broussard MD Unavailable [phone] Keisha Dotson MD Unavailable [phone] Galo Burrell MD Unavailable Unavailable Diana Desir [facility] Unavailable Rain Galaviz PA-C Unavailable Summer Lara MD Unavailable [phone] Tavia Wyatt MD Unavailable Johnny Murillo MD Unavailable Erica Farrell APRN [employer] CONSULTANT Unavailable Teresita Bean [facility] Unavailable Tavia Wyatt MD Unavailable Diana Desir [facility] Unavailable Rich Barrett MD Unavailable [phone] Neil Kent MD Unavailable Roney Story DPM Unavailable Erica Farrell STRIPPING SHOVEL OPERATOR [employer] CONSULTANT Unavailable Diana Desir [facility] Unavailable [phone] Jelena David OD Unavailable Galo Burrell MD Unavailable Unavailable Livan Sharif MD Unavailable + Livan Sharif MD Unavailable + Catherine Cm MD Unavailable + Valery Veronica PA-C Unavailable [phone] Catherine Cm MD Unavailable + Johnny Murillo MD Unavailable [phone] Brea Quinn STRIPPING SHOVEL OPERATOR [employer] CONSULTANT Unavailable [phone] Brea Quinn STRIPPING SHOVEL OPERATOR [employer] CONSULTANT Unavailable [phone] Jose Francisco Johnson MD Unavailable Livan Sharif MD Unavailable + IsCatherine hobbs MD Unavailable + Sydnie Martinez RN Unavailable Unavailable Alfonso Renteria MD Unavailable Esha Grimm-C Primary Care Provider Cheng Todd PA-C Unavailable Radha Lomeli STRIPPING SHOVEL OPERATOR [employer] CONSULTANT Unavailable [phone] Jelena David OD Unavailable Pao Joseph RN Unavailable Unavailable Esha Grimm-C Unavailable [phone] JeremíasValery damon PA-C Unavailable [phone] Rey Tay MD Unavailable Rocky Zepeda DO Unavailable Philip Dumont MD Unavailable [phone] Meredith Carrera PA-C Unavailable [phone] Neil Kent MD Unavailable Juan Pablo Emmanuel MD Unavailable Audrey Waite PA-C Unavailable [phone] Valery Veronica PA-C Unavailable [phone] Herminia Hatch MD Unavailable Jelena David OD Unavailable [phone] Juan Pablo Emmanuel MD Unavailable [phone] Maru Man-C Unavailable [phone] Maru ManC Unavailable [phone] Jelena David OD Unavailable Fabiano Correa NP Unavailable [phone] Encounter Details Date Type Department Care Team (Late st Contact Info) Description 09/24/2021 [facility] [address] [facility] [address] [place] [address] Teresita Bean, [facility] [address] [facility] [place] [address] Social History [...] How often do you attend evangelical or latter day serv ices? Never 09/22/2021 [...] Answer Date Recorded PHQ-2 Score 2 09/22/2021 [facility] of Occupat ional Health - Occupational Stress [...] in a correction (including now)? No 09/22/2021 [place] Depression Scale Answer Date Recorded [place] Depression Score 5 01/14/2021 Last EPDS Self Harm Result Not on file 01/14 Education Answer Date Recorded What is the highest level of school you have completed or the highest degree you have received? 12th grade 08/07/2020 Comments No Sex and Gender Information Value Date Recorded Sex Assigned at Female 03/02/2021 5:45 PM CDT Legal Sex Female 4:13 AM PANTRY STEWARD/STEWARDESS Gender Identity Female 03/02/2021 5:45 PM [...] Description 12/19/2024 2:00 PM CDT Office Visit [address] [phone] Lauren Claudio PA-C [address] [place] [address] 12/26/2024 7:30 AM CDT Office Visit [facility] [address] [phone] Neil Kent MD [address] [place] [address] 04/16/2025 11:00 AM CDT Virtual Visit [facility] [place] [address] [place] [address] 4th [place] [phone] Meredith Carrera PA-C [address] [place] [address] documented as of this encounter Visit Diagnoses Not on filedocumented in this encounter Additional Health Concerns Infection Onset Date Last Indicated Resolved Time Rule Out COVID-19 12/18/2021 12/18/2021 12/19/2021 11:34 AM CDT Rule Out COVID-19 02/24/2022 02/24/2022 02/25/2022 1:08 PM CDT Rule Out COVID-19 04/26/2022 04/26/2022 04/26/2022 6:47 AM CDT Rule Out COVID-19 05/17/2022 05/17/2022 05/17/2022 10:20 PM PANTRY STEWARD/STEWARDESS Rule Out COVID-19 06/09/2022 06/09/2022 06/09/2022 9:35 AM PANTRY STEWARD/STEWARDESS COVID-19 06/09/2022 06/09/2022 06/30/2022 11:4 1 PM PANTRY STEWARD/STEWARDESS Rule Out COVID-19 11/10/2022 11/10/2022 11/11/2022 [...] as of this encounter Care Teams Dental Laboratory Assistant Relationship Specialty Start Date End Date Marija Edgar APRN [employer] CONSULTANT PCP - General Nurse Practitioner 04/30/20 04/14/23 Esha Grimm PA-C [address] [place] [phone] PCP - General Family Medicine 05/04/23 Lita Oseguera Personal Advocate & Liaison (PAL) 02/28/20 03/27/23 Marija Edgar APRN [employer] CONSULTANT Assigned PCP 06/08/20 04/29/23 Mynor Broussard MD [address] [address] Assigned Surgical Provider 06/01/20 11/28/21 Keisha Dotson MD 909 [place] [address] Assigned Neuroscience Provider 06/04/20 04/01/23 Galo Burrell MD Assigned Heart and Vascular Provider 10/05/20 04/02/22 Diana Desir, [facility] [address] [place] [address] Pharmacist Pharmacist 04/17/21 Rain Galaviz PA-C [address] [place] [address] [address] [place], [place] [phone] Physician Credit Control Manager Dermatology 04/28/21 Summer Lara MD [address] [place] [address] 325634 Assigned OBGYN Provider 05/31/21 9 2 Tavia Wyatt MD [address] [place] [address] [phone] Dermatology 07/14/21 Johnny Murillo MD [facility] [address] [place], [place] [address] Assigned Musculoskeletal Provider 08/30/21 03/17/22 Erica Farrell APRN [employer] CONSULTANT [address] [facility] [address] [place] [id number] Nurse Practitioner Cardiovascular Disease 09/09/21 Teresita Bean, [facility] [address] [phone] Pharmacist Pharmacist 09/24/21 09/29/21 Tavia Wyatt MD [address] [place] [address] Assigned Surgical Provider 11/29/21 05/07/22 Diana Desir, [facility] [address] [place] [address] Assigned MTM Pharmacist 01/02/22 Rich Barrett MD [facility] [place] 908536 Physician Ophthalmology 01/21/22 Neil Kent MD 500 [place], [place] 229695 Dermatology 02/24/22 Roney Story DPM [address] [facility] [address] [place], [place] 756347 Assigned Musculoskeletal Provider 03/20/22 08/13/22 Erica Farrell APRN [employer] CONSULTANT 1700 [place] [address] Assigned Heart and Vascular Provider 04/03/22 04/16/22 Diana Desir, [facility] [address] [place] [address] Assigned MTM Pharmacist 04/07/22 [place] [address] [place] [address] [place] [address] Assigned Surgical Provider 05/08/22 10/08/22 Galo Burrell MD Assigned Heart and Vascular Provider 04/17/22 06/11/22 Livan Sharif MD [address] [place], [place] [address] Cardiovascular Disease 05/14/22 Livan Sharif MD [address] [place] [address] Assigned Heart and Vascular Provider 06/12/22 07/23/22 Catherine Cm MD [address] [place] [address] Cardiovascular Disease 07/21/22 Valery Veronica, PA-C [address] [place] [address] 477015 Physician Credit Control Manager Dermatology 07/21/22 Catherine Cm MD [address] [place] [address] Assigned Heart and Vascular Provider 07/24/22 11/05/22 Johnny Murillo MD [facility] [address] [address] Assigned Musculoskeletal Provider 08/14/22 10/08/22 Brea Quinn APRN [employer] CONSULTANT [address] [place] [address] 839645 Nurse Practitioner Dermatology 09/21/22 Brea Quinn APRN [employer] CONSULTANT [address] [place] [address] Assigned Surgical Provider 10/09/22 05/01/24 [place] [address] [place] [address] Assigned Musculoskeletal Provider 10/09/22 05/01/24 Livan Sharif MD [address] [place] 444415 Assigned Heart and Vascular Provider 11/06/22 11/12/22 Catherine Cm MD [address] [place] [address] Assigned Heart and Vascular Provider 11/13/22 05/27/23 Sydnie Martinez, VJ Personal Advocate & Liaison (PAL) Family Medicine 03/28/23 07/31/23 Alfonso Renteria MD 5775 [facility] 200 [place] [address] Assigned Neuroscience Provider 04/02/23 09/29/24 Cheng Todd PA-C [address] [place] [address] Assigned PCP 04/30/23 07/15/23 Radha Lomeli APRN [employer] CONSULTANT [address] [place] [address] Assigned Heart and Vascular Provider 05/28/23 11/29/24 Jelena David OD [address] [facility] [place] [address] Ophthalmology 06/15/23 Pao Joseph, RN Personal Advocate & Liaison (PAL) Nurse 08/01/23 11/07/23 Esha Grimm PA-C [address] [place] [phone] Assigned PCP 07/16/23 Valery Veronica PA-C [address] [place] [address] 460985 Physician Credit Control Manager Dermatology 09/19/23 Rey Tay MD [address] [place] [address] [id number] MD Gastroenterology 09/20/23 Rocky Zepeda DO [address] [place] [address] 673175 Physician Gastroenterology 09/20/23 Philip Dumont MD [address] [place] [address] [phone] Physician Ophthalmology 09/22/23 Meredith Carrera PA-C [address] [place] [address] [phone] Assigned Gastroenterology Provider 11/01/23 Neil Kent MD [address] [address] Dermatology 11/02/23 [place] [address] [place] [address] Neurological Surgery 12/26/23 Audrey Waite PA-C 500 [place] [address] Physician Credit Control Manager Dermatology 02/28/24 Valery Veronica PA-C [address]987 [address] [place] [address] Physician Credit Control Manager Dermatology 04/10/24 Herminia Hatch MD [address] [place] [address] [phone] Assigned Rheumatology Provider 07/02/24 Jelena David OD [address] [place] [address] [place] [address] Ophthalmology 08/30/24 [place] [address] [place] [address] Assigned Neuroscience Provider 09/30/24 Maru Man PA-C [address] [place] [address] Physician Credit Control Manager Dermatology 10/03/24 Maru Man PA-C [address] [place] [address] Physician Credit Control Manager Dermatology 10/22/24 Jelena David OD [address] [place] [address] [place] [address] Assigned Surgical Provider 10/31/24 Fabiano Correa NP [address] [place] [address] Assigned Heart and Vascular Provider 11/30/24 documented as of this encounter
--- OUTSIDE RECORDS SUMMARY | 2024-12-17 21:39 | XMS_ITS | Encounter Summary ---
Author Organization [place] Address [address] [place] [address] Care Team Providers Care Asset Protection Professional Name Role Phone Diana Desir [facility] Unavailable [phone] Rain Galaviz PA-C Unavailable [phone] Tavia Wyatt MD Unavailable [phone] Erica Farrell APRN MEDICARE INSURANCE SPECIALIST Unavailable Rich Barrett MD Unavailable [phone] Neil Kent MD Unavailable Diana Desir [facility] Unavailable Livan Sharif MD Unavailable Catherine Cm MD Unavailable + Valery Veronica PA-C Unavailable Brea Quinn TOASTER OPERATOR MEDICARE INSURANCE SPECIALIST Unavailable Brea Quinn TOASTER OPERATOR MEDICARE INSURANCE SPECIALIST Unavailable Jose Francisco Johnson MD Unavailable Alfonso Renteria MD Unavailable [phone] Esha Grimm PA-C Primary Care Provider [phone] Radha Lomeli APRN MEDICARE INSURANCE SPECIALIST Unavailable Jelena David OD Unavailable [phone] Esha Grimm PA-C Unavailable [phone] Valery Veronica PA-C Unavailable [phone] Rey Tay MD Unavailable Rocky Zepeda [...] Team (Late st Contact Info) Description 11/21/2023 [facility] [address] [place] [address] Sofia Alcantar Social History Tobacco [...] Score 0 10/25/2023 [facility] - Occupational Stress [...] exercise at this level? 30 min 03/10/2023 [place] Depression Scale Answer Date Recorded [place] Depression Score 5 01/14/2021 Last EPDS [...] PM CDT Legal Sex Female 4:13 AM CLARIFIER Gender Identity Female 03/02/2021 5:45 PM CDT Sexual Orientation Straight 02/28/2020 12 :51 AM CDT documented as of this encounter Plan of Treatment Upcoming Encounters Date Type Department Care Team (Late st Contact Info) Description 12/19/2024 2:00 PM CDT Office Visit [facility] [id number] [place] [phone] Lauren Claudio PA-C [address] [place] [address] 12/26/2024 7:30 AM CDT Office Visit [facility] [place] [address] [phone] Neil Kent MD [address] [place] [address] 613665 04/16/2025 11:00 AM CDT Virtual Visit [facility] [address] 4th [place] [phone] Meredith Carrera PA-C [address] [place] [address] 144155 documented as of this encounter Visit Diagnoses [...] Total Score: 4 06/20/20 23 8:40 AM CLARIFIER documented as of this encounter Care Teams Asset Protection Professional Relationship Specialty Start Date End Date Esha Grimm PA-C [address] [place] [address] PCP - General Family Medicine 05/04/23 Diana Desir, [facility] 3033 [place] [address] Pharmacist Pharmacist 04/17/21 Rain Galaviz PA-C [address] [place] [address] DR RAZO Lara [place] [address] Physician Sql Report Developer Dermatology 04/28/21 Tavia Wyatt MD [address] [place] [address] DR RAZO Lara [facility] [address] Dermatology 07/14/21 Erica Farrell APRN MEDICARE INSURANCE SPECIALIST [address] [place] 423245 Nurse Practitioner Cardiovascular Disease 09/09/21 Rich Barrett MD [address] [place] [address]255 Physician Ophthalmology 01/21/22 Neil Kent MD 500 [place] [address] Dermatology 02/24/[address] [address] [address] [place] [address] Assigned MTM Pharmacist 04/07/22 Livan Sharif MD [address] [place] 874095 Cardiovascular Disease 05/14/22 Catherine Cm MD [address] [place] [address] Cardiovascular Disease 07/21/22 Valery Veronica PA-C 909 [place] [address] Physician Sql Report Developer Dermatology 07/21/22 Brea Quinn APRN MEDICARE INSURANCE SPECIALIST [address] [place] [address] Nurse Practitioner Dermatology 09/21/22 Brea Quinn APRN MEDICARE INSURANCE SPECIALIST 6401 [place] [address] Assigned Surgical Provider 10/09/22 05/01/24 [place] [address] [address] Assigned Musculoskeletal Provider 10/09/22 05/01/24 Alfonso Renteria MD 5775 [facility] 200 [place] [address] Assigned Neuroscience Provider 04/02/23 09/29/24 Radha Lomeli APRN MEDICARE INSURANCE SPECIALIST [address] [place] [id number] [place] [address] Assigned Heart and Vascular Provider 05/28/23 11/29/24 Jelena David OD [address] [place] [address] Ophthalmology 06/15/23 Esha Grimm PA-C [address] [place] [address] Assigned PCP 07/16/23 Valery Veronica PA-C [address] [place] [address] Physician Sql Report Developer Dermatology 09/19/23 Rey Tay MD [address] [place] [address] MD Gastroenterology 09/20/23 Rocky Zepeda DO [address] [place] [address] 381775 Physician Gastroenterology 09/20/23 Philip Dumont MD [address] [place] [address] Physician Ophthalmology 09/22/23 Meredith Carrera PA-C [address] [place] [address] 077095 Assigned Gastroenterology Provider 11/01/23 Neil Kent MD [address] [phone] Dermatology 11/02/23 [place] [address] [address] [facility] [place] [address] Neurological Surgery 12/26/23 Audrey Waite PA-C [address] [place] [address] Physician Sql Report Developer Dermatology 02/28/24 Valery Veronica PA-C [address] [place] [address] Physician Sql Report Developer Dermatology 04/10/24 Herminia Hatch MD [address] [place] [address] 88[address] Assigned Rheumatology Provider 07/02/24 Jelena David, OD [facility] [place] [address] Ophthalmology 08/30/24 [place] [address] [place] [address] Assigned Neuroscience Provider 09/30/24 Maru Man PA-C [address] [place] [address] 329590 Physician Sql Report Developer Dermatology 10/03/24 Maru Man PA-C [address] [place] [address] Physician Sql Report Developer Dermatology 10/22/24 Jelena David OD [address] [place] [address] Assigned Surgical Provider 10/31/24 Fabiano Correa, ELECTROLYSIS OPERATOR [address] [place] [address] Assigned Heart and Vascular Provider 11/30/24 documented as of this encounter
--- OUTSIDE RECORDS SUMMARY | 2024-12-17 21:39 | XMS_ITS | Encounter Summary ---
Author Organization [place] Address [address] [place] [address] Care Team Providers Care Vice President Pharmacy Name Role Phone Diana Desir [facility] Unavailable [phone] Rain Galaviz PA-C Unavailable [phone] Tavia Wyatt MD Unavailable [phone] Erica Farrell APRN DEBONER Unavailable Rich Barrett MD Unavailable [phone] Neil Kent MD Unavailable Diana Desir [facility] Unavailable Livan Sharif MD Unavailable Catherine Cm MD Unavailable + Valery Veronica PA-C Unavailable [phone] Brea Quinn MEAT SPECIALIST DEBONER Unavailable Brea Quinn MEAT SPECIALIST DEBONER Unavailable [phone] Jose Francisco Johnson MD Unavailable Alfonso Renteria MD Unavailable [phone] Esha Grimm PA-C Primary Care Provider Radha Lomeli APRN DEBONER Unavailable Jelena David OD Unavailable [phone] Esha Grimm PA-C Unavailable [phone] Valery Veronica PA-C Unavailable Rey Tay [...] Contact Info) Description 02/27/2024 MyC Medical Advice [facility] [address] [place] [phone] Ebony Cid, ARLENE DEBONER 500 [place] [address] Social History Tobacco Use Types Packs/Day Years [...] you attend [facility] or religion services? 1 to 4 [...] Score 1 02/07/2024 [facility] - Occupational [...] exercise at this level? 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 Gender Identity Female 03/02/2021 5:45 PM CDT Sexual Orientation Straight 02/28/2020 12 :51 AM CDT documented as of this encounter Plan of Treatment Upcoming Encounters Date Type Department Care Team (Late st Contact Info) Description 12/19/2024 2:00 PM CDT Office Visit [facility] [address] [place] [phone] Lauren Claudio PA-C [address] [place] [address] 12/26/2024 7:30 AM CDT Office Visit [facility] [address] [phone] Neil Kent MD [address] [place] [address] 848365 04/16/2025 11:00 AM CDT Virtual Visit [facility] [place] [address] [place] [address] 4th [place] [phone] Meredith Carrera PA-C [address] [place] [address] documented as of this encounter Visit Diagnoses [...] of this encounter Care Teams Vice President Pharmacy Relationship Specialty Start Date End Date Esha Grimm PA-C [address] [place] [address] PCP - General Family Medicine 05/04/23 Diana Desir, [facility] [address] [place] [address] Pharmacist Pharmacist 04/17/21 Rain Galaviz PA-C [address] [place] [address] [address] [place] [address] Physician Track Repair Supervisor Dermatology 04/28/21 Tavia Wyatt MD [address] [place] [address] [address] [place] [place] [address] Dermatology 07/14/21 Erica Farrell APRN DEBONER [address] [place] [id number] Nurse Practitioner Cardiovascular Disease 09/09/21 Rich Barrett MD [address] [place] [id number] Physician Ophthalmology 01/21/22 Neil Kent MD 500 [place] [address] Dermatology 02/24/[address] [address] [place] [place] [address] Assigned MTM Pharmacist 04/07/22 Livan Sharif MD [address] [place] [id number] Cardiovascular Disease 05/14/22 Catherine Cm MD [address] [place] [address] Cardiovascular Disease 07/21/22 Valery Veronica PA-C 909 [place] [address] Physician Track Repair Supervisor Dermatology 07/21/22 Brea Quinn APRN DEBONER 500 [place] [address] Nurse Practitioner Dermatology 09/21/22 Brea Quinn APRN DEBONER 6401 [place] [address] Assigned Surgical Provider 10/09/22 05/01/24 [place] [address] [address] [facility] 300 [place] [address] Assigned Musculoskeletal Provider 10/09/22 05/01/24 Alfonso Renteria MD 5775 [facility] 200 [place], [place] 277726 Assigned Neuroscience Provider 04/02/23 09/29/24 Radha Lomeli APRN DEBONER [address] [facility] [address] [place] [id number] Assigned Heart and Vascular Provider 05/28/23 11/29/24 Jelena David OD [address] [facility] [place] [address] Ophthalmology 06/15/23 Esha Grimm PA-C [address] [place] [address]83 Assigned PCP 07/16/23 Valery Veronica PA-C [address] [place] [address] Physician Track Repair Supervisor Dermatology 09/19/23 Rey Tay MD [address] [place] [address] MD Gastroenterology 09/20/23 Rocky Zepeda DO [address] [place] [address] 653865 Physician Gastroenterology 09/20/23 Philip Dumont MD [address] [place] [address] Physician Ophthalmology 09/22/23 Meredith Carrera PA-C [address] [place] [address]10 Assigned Gastroenterology Provider 11/01/23 Neil Kent MD [address] [address] Dermatology 11/02/23 [place] [address] [place], [place] 854867 Neurological Surgery 12/26/23 Audrey Waite PA-C [address] [place] [address] 691005 Physician Track Repair Supervisor Dermatology 02/28/24 Valery Veronica PA-C [address] [facility] [place] [id number] Physician Track Repair Supervisor Dermatology 04/10/24 Herminia Hatch MD [facility] [place] [address] Assigned Rheumatology Provider 07/02/24 Jelena David, OD [address] [facility] [place] [address] Ophthalmology 08/30/24 [place] [address] [place] [id number] Assigned Neuroscience Provider 09/30/24 Maru Man PA-C [address] [place] [address] Physician Track Repair Supervisor Dermatology 10/03/24 Maru Man PA-C [address] [place] [address] Physician Track Repair Supervisor Dermatology 10/22/24 Jelena David, SONJA 3305 [facility] [place] [address] Assigned Surgical Provider 10/31/24 Fabiano [place] NP [address] [place] [address] Assigned Heart and Vascular Provider 11/30/24 documented as of this encounter
--- OUTSIDE RECORDS SUMMARY | 2024-12-17 21:39 | XMS_ITS | Encounter Summary ---
Author Organization [place] Address [address] [place] [address] Care Team Providers Care Charge Auditor Name Role Phone Lita Oseguera Unavailable Unavailable Marija Edgar APRN LEARNING SUPPORT AIDE Primary Care Provider + Marija Edgar APRN LEARNING SUPPORT AIDE Unavailable [phone] Keisha Dotson MD Unavailable Diana Desir [facility] Unavailable Rain Galaviz PA-C Unavailable Tavia Wyatt MD Unavailable Eriac Farrell APRN LEARNING SUPPORT AIDE Unavailable Rich Barrett MD Unavailable [phone] Neil Kent MD Unavailable Diana Desir [facility] Unavailable Livan Sharif MD Unavailable Catherine Cm MD Unavailable + Valery Veronica PA-C Unavailable Brea Quinn COMMERCIAL HVAC SERVICE TECHNICIAN LEARNING SUPPORT AIDE Unavailable Brea Quinn COMMERCIAL HVAC SERVICE TECHNICIAN LEARNING SUPPORT AIDE Unavailable Jose Francisco Johnson MD Unavailable Catherine Cm MD Unavailable + Sydnie Martinez RN Unavailable Unavailable Alfonso Renteria MD Unavailable [phone] Esha Grimm PA-C Primary Care Provider Cheng Todd PA-C Unavailable Armani Radha Stovall ARLENE LEARNING SUPPORT AIDE Unavailable Jelena David OD Unavailable Pao Joseph RN Unavailable Unavailable Esha Grimm PA-C Unavailable [phone] Valery Veronica PA-C Unavailable Rey Tay MD Unavailable Rocky Zepeda DO Unavailable Philip Dumont MD Unavailable [phone] Meredith Carrera PA-C Unavailable [phone] Neil Kent MD Unavailable Juan Pablo Emmanuel MD Unavailable Audrey Waite PA-C Unavailable Valery Veronica PA-C Unavailable Herminia Hatch MD Unavailable Jelena David OD Unavailable [phone] Juan Pablo Emmanuel MD Unavailable [phone] Maru Man PA-C Unavailable [phone] Maru Man PA-C Unavailable [phone] Jelena David OD Unavailable Fabiano Correa NP Unavailable Encounter Details Date Type Department Care Team (Late st Contact Info) Description 12/23/2022 MyC Medical Advice [facility] [address] [place] [address] Lauren Claudio PA-C [address] [place], [place] [phone] Social History Tobacco Use Types Packs/Day Years [...] How often do you attend mu-ism or uatsdin serv ices? Never 09/22/2021 Do [...] Answer Date Recorded PHQ-2 Score 1 10/11/2022 [facility] [...] a long term (including now)? 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 Gender Identity Female 03/02/2021 5:45 PM CDT [...] Description 12/19/2024 2:00 PM CDT Office Visit [facility] [address] [place] [phone] Lauren Claudio PA-C [address] [place] [address] 12/26/2024 7:30 AM CDT Office Visit [facility] [address] [phone] Neil Kent MD [address] [place] [address] 506305 04/16/2025 11:00 AM CDT Virtual Visit [facility] Gastroenterology [address] 4th [place] [address] Meredith Carrera PA-C [address] [place] [address] documented as of this encounter Visit Diagnoses [...] documented as of this encounter Care Teams Charge Auditor Relationship Specialty Start Date End Date Marija Edgar APRN LEARNING SUPPORT AIDE PCP - General Nurse Practitioner 04/30/20 04/14/23 Esha Grimm PA-C [address] [place] [address] PCP - General Family Medicine 05/04/23 Lita Oseguera Personal Advocate & Liaison (PAL) 02/28/20 03/27/23 Marija Edgar APRN LEARNING SUPPORT AIDE Assigned PCP 06/08/20 04/29/23 Keisha Dotson MD 9 [place] [address] Assigned Neuroscience Provider 06/04/20 04/01/23 Diana Desir, [facility] [address] [place] [address] Pharmacist Pharmacist 04/17/21 Rain Galaviz PA-C [address] [place] [address] [address] [place] [address] Physician Reference Archivist Dermatology 04/28/21 Tavia Wyatt MD [address] [place] [address] [address] [place] [address] Dermatology 07/14/21 Erica Farrell APRN LEARNING SUPPORT AIDE [address] [place] [address] Nurse Practitioner Cardiovascular Disease 09/09/21 Rich Barrett MD [address] [place] 378515 Physician Ophthalmology 01/21/22 Neil Kent MD 500 [place], [place] 203805 Dermatology 02/24/22 Diana Desir, [facility] [address] [place] [address] Assigned MTM Pharmacist 04/07/22 Livan Sharif MD [address] [place] [address] Cardiovascular Disease 05/14/22 Catherine Cm MD [address] [facility] [address] [place] [address] Cardiovascular Disease 07/21/22 Valery Veronica PA-C 909 [place], [place] 818035 Physician Reference Archivist Dermatology 07/21/22 Brea Quinn APRN LEARNING SUPPORT AIDE 500 [place], [place] 047225 Nurse Practitioner Dermatology 09/21/22 Brea Quinn APRN LEARNING SUPPORT AIDE 6401 [place] [address] Assigned Surgical Provider 10/09/22 05/01/24 [place] [address] [facility] [address] [place], [place] 226117 Assigned Musculoskeletal Provider 10/09/22 05/01/24 Catherine Cm MD [address] [facility] [address] [place] [address] Assigned Heart and Vascular Provider 11/13/22 05/27/23 Sydnie Martinez RN Personal Advocate & Liaison (PAL) Family Medicine 03/28/23 07/31/23 Alfonso Renteria MD [address] 200 [place] [address] Assigned Neuroscience Provider 04/02/23 09/29/24 Cheng Todd PA-C [address] [place] [address] Assigned PCP 04/30/23 07/15/23 Radha Lomeli APRN LEARNING SUPPORT AIDE 6[address] [facility] [address] [place] [address] Assigned Heart and Vascular Provider 05/28/23 11/29/24 Jelena David OD [address] [facility] [place] [address] MD Ophthalmology 06/15/23 Pao Joseph, VJ Personal Advocate & Liaison (PAL) Nurse 08/01/23 11/07/23 Esha Grimm PA-C [address] [place] [phone] Assigned PCP 07/16/23 Valery Veronica PA-C [address] [place] [address] 974055 Physician Reference Archivist Dermatology 09/19/23 Rey Tay MD [address] [place] [address] 439985 Gastroenterology 09/20/23 Rocky Zepeda DO [address] [place] [address] Physician Gastroenterology 09/20/23 Philip Dumont MD [address] [place] [address] Physician Ophthalmology 09/22/23 Meredith Carrera PA-C 909 [place] [address] Assigned Gastroenterology Provider 11/01/23 Neil Kent MD [address] [place] [address] Dermatology 11/02/23 [place] [address] [place] [address] Neurological Surgery 12/26/23 Audrey Waite PA-C [address] [place] [address] Physician Reference Archivist Dermatology 02/28/24 Valery Veronica PA-C [address] [place] [address] Physician Reference Archivist Dermatology 04/10/24 Herminia Hatch MD [address] [place] [address] [id number] Assigned Rheumatology Provider 07/02/24 Jelena David OD [address] [place] [address] [place] [address] Ophthalmology 08/30/24 [place] [address] RAZO [facility] [place] [address] Assigned Neuroscience Provider 09/30/24 Maru Man PA-C [address] [place] [address] Physician Reference Archivist Dermatology 10/03/24 Maru Man PA-C [address] [place] [address] Physician Reference Archivist Dermatology 10/22/24 Jelena David OD [address]305 [facility] [place] [address] Assigned Surgical Provider 10/31/24 Fabiano [place] NP [address] [place] [address] Assigned Heart and Vascular Provider 11/30/24 documented as of this encounter
--- OUTSIDE RECORDS SUMMARY | 2024-12-17 21:39 | XMS_ITS | Encounter Summary ---
Author Organization [place] Address [address] [place] [address] Care Team Providers Care Datastage Architect Name Role Phone Diana Desir [facility] Unavailable Rain Galaviz PA-C Unavailable Tavia Wyatt MD Unavailable [phone] Erica Farrell APRN ART DIRECTOR Unavailable Rich Barrett MD Unavailable [phone] Neil Kent MD Unavailable Diana Desir [facility] Unavailable Livan Sharif MD Unavailable Catherine Cm MD Unavailable + Valery Veronica PA-C Unavailable Brea Quinn LABORER DRYING DEPARTMENT ART DIRECTOR Unavailable [phone] Brea Quinn LABORER DRYING DEPARTMENT ART DIRECTOR Unavailable Jose Francisco Johnson MD Unavailable Alfonso Renteria MD Unavailable [phone] Esha Grimm PA-C Primary Care Provider [phone] Radha Lomeli APRN ART DIRECTOR Unavailable Jelena David OD Unavailable [phone] Esha Grimm PA-C Unavailable Valery Veronica PA-C [...] Contact Info) Description 03/06/2024 MyC Medical Advice [facility] Spine and Neurosurgery [address] [address] Ebony Cid, ARLENE ART DIRECTOR [address] [place] [address] Social History Tobacco Use Types Packs/Day Years [...] attend [facility] or scientology services? 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 Gender Identity Female 03/02/2021 5:45 PM CDT Sexual Orientation Straight 02/28/2020 12 :51 AM CDT documented as of this encounter Plan of Treatment Upcoming Encounters Date Type Department Care Team (Late st Contact Info) Description 12/19/2024 2:00 PM CDT Office Visit [facility] [id number] [place] [address] Lauren Claudio PA-C [address] [place] [address] 12/26/2024 7:30 AM CDT Office Visit [facility] [address] [phone] Neil Kent MD [address] [place] [address] 357615 04/16/2025 11:00 AM CDT Virtual Visit [facility] G[facility]ology [facility] [place] [address] [place] [address] 4th [place] [phone] Meredith Carrera PA-C [address] [place] [address] documented as of this encounter Visit Diagnoses [...] documented as of this encounter Care Teams Datastage Architect Relationship Specialty Start Date End Date Esha Grimm PA-C [address] [place] [address] PCP - General Family Medicine 05/04/23 Diana Desir [facility] [address] [place] [address] Pharmacist Pharmacist 04/17/21 Rain Galaviz PA-C [address] [place] [address] [address] [place] [address] Physician Building Maintenance Engineer Dermatology 04/28/21 Tavia Wyatt MD [address] [place] [address] [address] [facility] [place] [address] Dermatology 07/14/21 Erica Farrell APRN ART DIRECTOR [address] [place] 6[address]65 Nurse Practitioner Cardiovascular Disease 09/09/21 Rich Barrett MD [address] [place] 2[address]25 Physician Ophthalmology 01/21/22 Neil Kent MD [address] [place] [address] Dermatology 02/24/22 Diana Desir, [facility] [address] [place] [address] Assigned MTM Pharmacist 04/07/22 Livan Sharif MD [address] [place] [address] Cardiovascular Disease 05/14/22 Catherine Cm MD [address] [place] [address] Cardiovascular Disease 07/21/22 Valery Veronica PA-C 909 [place] [address] Physician Building Maintenance Engineer Dermatology 07/21/22 Brea Quinn APRN ART DIRECTOR 500 [place] [address] Nurse Practitioner Dermatology 09/21/22 Brea Quinn APRN ART DIRECTOR [address] [facility] [address] Assigned Surgical Provider 10/09/22 05/01/24 [place] [address] [address] [facility] 300 [place] [address] Assigned Musculoskeletal Provider 10/09/22 05/01/24 Alfonso Renteria MD 5775 [facility] 200 [place], [place] 643876 Assigned Neuroscience Provider 04/02/23 09/29/24 Radha Lomeli APRN ART DIRECTOR [address] [facility] [address] [place] [address] Assigned Heart and Vascular Provider 05/28/23 11/29/24 Jelena David OD [address] [place] [address] Ophthalmology 06/15/23 Esha Grimm PA-C [address] [place] [address] Assigned PCP 07/16/23 Valery Veronica PA-C [address] [place] [address] Physician Building Maintenance Engineer Dermatology 09/19/23 Rey Tay MD [address] [place] [address] MD Gastroenterology 09/20/23 Rocky Zepeda DO [address] [place] [address] 048355 Physician Gastroenterology 09/20/23 Philip Dumont MD [address] [place] [address] Physician Ophthalmology 09/22/23 Meredith Carrera PA-C [address] [place] [address] Assigned Gastroenterology Provider 11/01/23 Neil Kent MD [address] [address] Dermatology 11/02/23 [place] [address] [place], [place] [address] Neurological Surgery 12/26/23 Audrey Waite PA-C [address] [place] [address] 272515 Physician Building Maintenance Engineer Dermatology 02/28/24 Valery Veronica PA-C [address] [facility] [place] [address] Physician Building Maintenance Engineer Dermatology 04/10/24 Herminia Hatch MD [facility]5 [place], [place] 71067125 Assigned Rheumatology Provider 07/02/24 Jelena David, SONJA [address] [place] [address] [place] [address] Ophthalmology 08/30/24 [place] [address] [place] [address] Assigned Neuroscience Provider 09/30/24 Maru Man PA-C [address] [place] [address] Physician Building Maintenance Engineer Dermatology 10/03/24 Maru Man PA-C [address] [place] [address] Physician Building Maintenance Engineer Dermatology 10/22/24 Jelena David, SONJA [address] [place] [address] [place] [address] Assigned Surgical Provider 10/31/24 Fabiano Correa NP [address] [place] [address] Assigned Heart and Vascular Provider 11/30/24 documented as of this encounter
--- OUTSIDE RECORDS SUMMARY | 2024-12-17 21:39 | XMS_ITS | Encounter Summary ---
Author Organization [facility] Address [address] [place] [address] Care Team Providers Care Billing Assistant Name Role Phone Lita Oseguera Unavailable Unavailable Marija Edgar APRN MEN'S LEATHER DRESS BELT MAKER Primary Care Provider + Marija Edgar APRN MEN'S LEATHER DRESS BELT MAKER Unavailable [phone] Keisha Dotson MD Unavailable Diana Desir [facility] Unavailable [phone] Rain Galaviz PA-C Unavailable Tavia Wyatt MD Unavailable Erica Farrell APRN MEN'S LEATHER DRESS BELT MAKER Unavailable Rich Barrett MD Unavailable [phone] Neil Kent MD Unavailable Diana Desir [facility] Unavailable Livan Sharif MD Unavailable Catherine Cm MD Unavailable + Valery Veronica PA-C Unavailable Brea Quinn ABSORPTION PLANT OPERATOR MEN'S LEATHER DRESS BELT MAKER Unavailable Brea Quinn ABSORPTION PLANT OPERATOR MEN'S LEATHER DRESS BELT MAKER Unavailable [phone] Jose Francisco Johnson MD Unavailable Catherine Cm MD Unavailable + Sydnie Martinez RN Unavailable Unavailable Alfonso Renteria MD Unavailable [phone] Esha Grimm PA-C Primary Care Provider Cheng Todd PA-C Unavailable Armani Radha Stovall ARLENE MEN'S LEATHER DRESS BELT MAKER Unavailable Jelena David OD Unavailable Pao Joseph RN Unavailable Unavailable Esha Grimm PA-C Unavailable [phone] Valery Veronica PA-C Unavailable Rey Tay MD Unavailable Rocky Zepeda DO Unavailable Philip Dumont MD Unavailable [phone] Meredith Carrera PA-C Unavailable [phone] Neil Kent MD Unavailable Juan Pablo Emmanuel MD Unavailable Audrey Waite PA-C Unavailable Valery Veronica PA-C Unavailable Herminia Hatch MD Unavailable Jelena David OD Unavailable [phone] Juan Pablo Emmanuel MD Unavailable [phone] Maru Man PA-C Unavailable [phone] Maru Man PA-C Unavailable [phone] Jelena David OD Unavailable Fabiano Correa NP Unavailable Encounter Details Date Type Department Care Team (Late st Contact Info) Description 01/10/2023 MyC Medical Advice [facility] [address] [place] [address] Lauren Claudio PA-C [address] [place], [place] [phone] Social History Tobacco Use Types Packs/Day Years [...] often do you attend roman catholic or moravian serv ices? Never 09/22/2021 Do [...] Recorded PHQ-2 Score 1 10/11/2022 [facility] - [...] in a correction (including now)? No 09/22/2021 Talbott Depression Scale Answer Date Recorded Talbott Depression Score 5 01/14/2021 Last EPDS Self Harm Result Not on file 01/14 Education Answer Date Recorded What is the highest level of school you have completed or the highest degree you have received? 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 No / Unsure 01/12/2023 2:21 PM CDT documented as of this encounter Miscellaneous Notes * Telephone Encounter - Julissa Bneitez CMA - 02/03/2023 1:33 PM CDT Order faxed to number listed. Julissa Benitez CMA * Telephone Encounter - Lauren Claudio PA-C - 02/03/2023 11:59 AM CDT Please fax the order. * Telephone Encounter - Erica David MA - 02/03/2023 11:52 AM CDT Incoming call Pta: Rosalva Mosinee [facility] referral following up on [facility] med information that is needed to be faxed at [phone] Erica David MA documented in this encounter Plan of Treatment Upcoming Encounters Date Type Department Care Team (Late st Contact Info) Description 12/19/2024 2:00 PM CDT Office Visit [address] [address] Lauren Claudio PA-C [address] [place] [address] 12/26/2024 7:30 AM CDT Office Visit [facility] [address] [phone] Neil Kent MD [address] [place] [address] 263625 04/16/2025 11:00 AM CDT Virtual Visit [facility] Gastroenterology Clinic [address] 4th [place] [phone] Meredith Carrera PA-C [address] [place] [address] documented as of this encounter Visit Diagnoses [...] documented as of this encounter Care Teams Billing Assistant Relationship Specialty Start Date End Date Marija Edgar APRN MEN'S LEATHER DRESS BELT MAKER PCP - General Nurse Practitioner 04/30/20 04/14/23 Esha Grimm PA-C [address] [facility] [place] [address] PCP - General Family Medicine 05/04/23 Lita Oseguera Personal Advocate & Liaison (PAL) 02/28/20 03/27/23 Marija Edgar APRN MEN'S LEATHER DRESS BELT MAKER Assigned PCP 06/08/20 04/29/23 Keisha Dotson MD [address]09 [place], [place] 576715 Assigned Neuroscience Provider 06/04/20 04/01/23 Diana Desir, [facility] 3033 [place], [place] 840[address] Pharmacist Pharmacist 04/17/21 Rain Galaviz PA-C [address] [place] [address] [address] [place] [address] Physician Claim Trainee Dermatology 04/28/21 Tavia Wyatt MD [address] [place] [address] [place] [phone] Dermatology 07/14/21 Erica Farrell APRN MEN'S LEATHER DRESS BELT MAKER [address] [facility] [address] [place] [address] Nurse Practitioner Cardiovascular Disease 09/09/21 Rich Barrett MD [address] [place], [place] 360[address]65 Physician Ophthalmology 01/21/22 Neil Kent MD 500 [place], [place] [address] Dermatology 02/24/22 Diana Desir, [facility] [address] [place], [place] 568736 Assigned [place] Pharmacist 04/07/22 Livan Sharif MD [address] [place], [place] 284165 Cardiovascular Disease 05/14/22 Catherine Cm MD [address] [facility] [address] 248[address] Cardiovascular Disease 07/21/22 Valery Veronica, PA-C 909 [place], [place] 728135 Physician Claim Trainee Dermatology 07/21/22 Brea Quinn APRN MEN'S LEATHER DRESS BELT MAKER 500 [place], [place] 675025 Nurse Practitioner Dermatology 09/21/22 Brea Quinn APRN MEN'S LEATHER DRESS BELT MAKER 6401 [facility] [place], [place] 259472 Assigned Surgical Provider 10/09/22 05/01/24 [place] [address] [address] [facility] 300 [place] [address] Assigned Musculoskeletal Provider 10/09/22 05/01/24 Catherine Cm MD [address] [place] [address] Assigned Heart and Vascular Provider 11/13/22 05/27/23 Sydnie Martinez RN Personal Advocate & Liaison (PAL) Family Medicine 03/28/23 07/31/23 Alfonso Renteria MD 5775 [facility] 200 [place] [address] Assigned Neuroscience Provider 04/02/23 09/29/24 Cheng Todd PA-C [address] [place] [address] [phone] Assigned PCP 04/30/23 07/15/23 Radha Lomeli APRN MEN'S LEATHER DRESS BELT MAKER [address] [place] [address] Assigned Heart and Vascular Provider 05/28/23 11/29/24 Jelena David OD [address] [facility] [place] [address] Ophthalmology 06/15/23 Pao Joseph, VJ Personal Advocate & Liaison (PAL) Nurse 08/01/23 11/07/23 Esha Grimm PA-C [address] [place] [phone] Assigned PCP 07/16/23 Valery Veronica PA-C 9 [place], [place] 182355 Physician Claim Trainee Dermatology 09/19/23 Rey Tay MD [address] [place] [address] MD Gastroenterology 09/20/23 Rocky Zepeda DO [address] [place] [address] 160555 Physician Gastroenterology 09/20/23 Philip Dumont MD [address] [place] [address] 245025 Physician Ophthalmology 09/22/23 Meredith Carrera PA-C [address] [place] [address] 476955 Assigned Gastroenterology Provider 11/01/23 Neil Kent MD [address] [address] Dermatology 11/02/23 [place] [address] [address] Neurological Surgery 12/26/23 uAdrey Waite PA-C [address] [place] [address] Physician Claim Trainee Dermatology 02/28/24 Valery Veronica PA-C [address] [place] [address] Physician Claim Trainee Dermatology 04/10/24 Herminia Hatch MD [facility]5 [place] [address] Assigned Rheumatology Provider 07/02/24 Jelena David OD [address] [place] [address] [place] [address] Ophthalmology 08/30/24 [place] [address] [place] [address] Assigned Neuroscience Provider 09/30/24 Maru Man PA-C [address] [place] [address] Physician Claim Trainee Dermatology 10/03/24 Maru Man PA-C [address] [place] [address] Physician Claim Trainee Dermatology 10/22/24 Jelena David OD [address] [place] [address] [place] [address] Assigned Surgical Provider 10/31/24 Fabiano Correa NP [address] [place] 756885 Assigned Heart and Vascular Provider 11/30/24 documented as of this encounter
--- OUTSIDE RECORDS SUMMARY | 2024-12-17 21:39 | XMS_ITS | Encounter Summary ---
Author Organization [facility] Address [address] [place] [address] Care Team Providers Care Production Line Welder Name Role Phone Lita Oseguera Unavailable Unavailable Marija Edgar APRN INSTRUCTOR ADJUNCT SURGICAL TECHNICIAN Primary Care Provider + Marija Edgar APRN INSTRUCTOR ADJUNCT SURGICAL TECHNICIAN Unavailable [phone] Mynor Broussard MD Unavailable [phone] Keisha Dotson MD Unavailable Galo Burrell MD Unavailable Unavailable Diana Desir [facility] Unavailable [phone] Rain Galaviz PA-C Unavailable [phone] Summer Lara MD Unavailable [phone] Tavia Wyatt MD Unavailable Johnny Murillo MD Unavailable Erica Farrell APRN INSTRUCTOR ADJUNCT SURGICAL TECHNICIAN Unavailable Teresita Bean [facility] Unavailable Tavia Wyatt MD Unavailable Diana Desir [facility] Unavailable Rich Barrett MD Unavailable [phone] Neil Kent MD Unavailable Roney Story DPM Unavailable Erica Farrell SALES PROFESSIONAL BILINGUAL INSTRUCTOR ADJUNCT SURGICAL TECHNICIAN Unavailable Diana Desir [facility] Unavailable [phone] Jelena David OD Unavailable [phone] Galo Burrell MD Unavailable Unavailable Livan Sharif MD Unavailable + Livan Sharif MD Unavailable + Catherine Cm MD Unavailable + Valery Veronica PA-C Unavailable [phone] Catherine Cm MD Unavailable + Johnny Murillo MD Unavailable [phone] Brea Quinn SALES PROFESSIONAL BILINGUAL INSTRUCTOR ADJUNCT SURGICAL TECHNICIAN Unavailable [phone] Brea Quinn SALES PROFESSIONAL BILINGUAL INSTRUCTOR ADJUNCT SURGICAL TECHNICIAN Unavailable [phone] Jose Francisco Johnson MD Unavailable Livan Sharif MD Unavailable + IsCatherine hobbs MD Unavailable + Sydnie Martinez RN Unavailable Unavailable Alfonso Renteria MD Unavailable Esha Grimm-C Primary Care Provider Cheng Todd PA-C Unavailable Radha Lomeli SALES PROFESSIONAL BILINGUAL INSTRUCTOR ADJUNCT SURGICAL TECHNICIAN Unavailable [phone] Jelena David OD Unavailable Pao Joseph RN Unavailable Unavailable Esha Grimm-C Unavailable [phone] JeremíasValery damon PA-C Unavailable [phone] Rey Tay MD Unavailable Rocky Zepeda DO Unavailable Philip Dumont MD Unavailable [phone] Meredith Carrera PA-C Unavailable [phone] Neil Kent MD Unavailable Juan Pablo Emmanuel MD Unavailable Audrey Waite PA-C Unavailable [phone] Valery Veronica PA-C Unavailable Herminia Hatch MD Unavailable Jelena David OD Unavailable Juan Pablo Emmanuel MD Unavailable Maru Man-C Unavailable [phone] Maru Man-C Unavailable [phone] Jelena David OD Unavailable Fabiano Correa NP Unavailable [phone] Encounter Details Date Type Department Care Team (Late st Contact Info) Description 09/02/2021 [facility] [address] [address] Diana Desir, [facility] [address] [place] [address] Social History Tobacco Use Types Packs/Day Years [...] Answer Date Recorded PHQ-2 Score 0 04/02/2021 [facility] [place] [facility] - Occupational Stress [...] a senior care (including now)? No 08/11/2020 [place] Depression Scale Answer Date Recorded [place] Depression Score 5 01/14/2021 Last EPDS Self Harm Result Not on file 01/14 Education Answer Date Recorded What is the highest level of school you have completed or the highest degree you have received? 12th grade 08/07/2020 Comments No Sex and Gender Information Value Date Recorded Sex Assigned at Female 03/02/2021 5:45 PM CDT Legal Sex Female 4:13 AM SENIOR SALES DIRECTOR Gender Identity Female 03/02/2021 5:45 PM CDT Sexual Orientation Straight 02/28/2020 12 :51 AM CDT COVID-19 Exposure Response Date Recorded In the last month, have you been in contact with someone who was confirmed or suspected to have Coronavirus / COVID-19? No / Unsure 09/02/2021 12:26 PM SENIOR SALES DIRECTOR documented as of this encounter Plan of Treatment Upcoming Encounters Date Type Department Care Team (Late st Contact Info) Description 12/19/2024 2:00 PM CDT Office Visit [facility] [address] [place] [address] Lauren Claudio PA-C [address] [place] [address] 12/26/2024 7:30 AM CDT Office Visit [facility] [address] [phone] Neil Kent MD [address] [place] [address] 04/16/2025 11:00 AM CDT Virtual Visit [facility] [place] [address] [place] [address] [address] [place] [phone] Meredith Carrera PA-C [address] [place] [address] 945865 documented as of this encounter Visit Diagnoses Not on filedocumented in this encounter Additional Health Concerns Infection Onset Date Last Indicated Resolved Time Rule Out COVID-19 12/18/2021 12/18/2021 12/19/2021 11:34 AM CDT Rule Out COVID-19 02/24/2022 02/24/2022 02/25/2022 1:08 PM CDT Rule Out COVID-19 04/26/2022 04/26/2022 04/26/2022 6:47 AM CDT Rule Out COVID-19 05/17/2022 05/17/2022 05/17/2022 10:20 PM SENIOR SALES DIRECTOR Rule Out COVID-19 06/09/2022 06/09/2022 06/09/2022 9:35 AM SENIOR SALES DIRECTOR COVID-19 06/09/2022 06/09/2022 06/30/2022 11:4 1 PM SENIOR SALES DIRECTOR Rule Out COVID-19 11/10/2022 11/10/2022 11/11/2022 [...] as of this encounter Care Teams Production Line Welder Relationship Specialty Start Date End Date Marija Edgar APRN INSTRUCTOR ADJUNCT SURGICAL TECHNICIAN PCP - General Nurse Practitioner 04/30/20 04/14/23 Esha Grimm PA-C [address] [place] [phone] PCP - General Family Medicine 05/04/23 Lita Oseguera Personal Advocate & Liaison (PAL) 02/28/20 03/27/23 Marija Edgar APRN INSTRUCTOR ADJUNCT SURGICAL TECHNICIAN Assigned PCP 06/08/20 04/29/23 Mynor Broussard MD [address] [address] Assigned Surgical Provider 06/01/20 11/28/21 Keisha Dotson MD [address] [place] [address] Assigned Neuroscience Provider 06/04/20 04/01/23 Galo Burrell MD Assigned Heart and Vascular Provider 10/05/20 04/02/22 Diana Desir, [facility] [address] [place] [address] Pharmacist Pharmacist 04/17/21 Rain Galaviz PA-C [address] [place] [address] [place] [address] Physician Sponge Diver Dermatology 04/28/21 Summer Lara MD [address] [place] [address] Assigned OBGYN Provider 05/31/21 2 Tavia Wyatt MD [address] [place] [address] 739194 Dermatology 07/14/21 Johnny Murillo MD [facility] [address] Assigned Musculoskeletal Provider 08/30/21 03/17/22 Erica Farrell APRN INSTRUCTOR ADJUNCT SURGICAL TECHNICIAN [address] [facility] [address] [place], [place] 068575 Nurse Practitioner Cardiovascular Disease 09/09/21 Teresita Bean, [facility] [facility] [address] [place] [phone] Pharmacist Pharmacist 09/24/21 09/29/21 Tavia Wyatt MD [address] [place] [address] Assigned Surgical Provider 11/29/21 05/07/22 Diana Desir [facility] [place] [address] Assigned MTM Pharmacist 01/02/22 Rich Barrett [place] [facility] [place] [address] Physician Ophthalmology 01/21/22 Neil Kent MD [address] [place] [address] Dermatology 02/24/22 [place] [address] [facility] [address] [place] [address] Assigned Musculoskeletal Provider 03/20/22 08/13/22 Erica Farrell APRN INSTRUCTOR ADJUNCT SURGICAL TECHNICIAN [address] [place] [address] Assigned Heart and Vascular Provider 04/03/22 04/16/22 Diana Desir [facility] [place] [address] Assigned MTM Pharmacist 04/07/22 Jelena David OD [address] [place] [address] Assigned Surgical Provider 05/08/22 10/08/22 Galo Burrell MD Assigned Heart and Vascular Provider 04/17/22 06/11/22 Livan Sharif MD [address] [place] [address] Cardiovascular Disease 05/14/22 Livan Sharif MD [address] [place] [address] Assigned Heart and Vascular Provider 06/12/22 07/23/22 Catherine Cm MD [address] [place], [place] 822[address] Cardiovascular Disease 07/21/22 Valery Veronica PAUcheC [address] [place] [address] 635415 Physician Sponge Diver Dermatology 07/21/22 Catherine Cm MD [address] [place], [place] [address] Assigned Heart and Vascular Provider 07/24/22 11/05/22 Johnny Murillo MD [address] 281504 Assigned Musculoskeletal Provider 08/14/22 10/08/22 Brea Quinn APRN INSTRUCTOR ADJUNCT SURGICAL TECHNICIAN [address] [place] [address] 857165 Nurse Practitioner Dermatology 09/21/22 Brea Quinn, SALES PROFESSIONAL BILINGUAL INSTRUCTOR ADJUNCT SURGICAL TECHNICIAN [address] [place] [address] Assigned Surgical Provider 10/09/22 05/01/24 [place] [address] [facility] [address] [place] [address] Assigned Musculoskeletal Provider 10/09/22 05/01/24 Livan Sharif MD [address] [place] [address] Assigned Heart and Vascular Provider 11/06/22 11/12/22 Catherine Cm MD [address] [facility]00 [place] [address] Assigned Heart and Vascular Provider 11/13/22 05/27/23 Sydnie Martinez, RN Personal Advocate & Liaison (PAL) Family Medicine 03/28/23 07/31/23 Alfonso Renteria MD [address] [facility] [address] [place] [address] Assigned Neuroscience Provider 04/02/23 09/29/24 Cheng Todd PA-C [address] [place] [address] [id number] Assigned PCP 04/30/23 07/15/23 Radha Lomeli APRN INSTRUCTOR ADJUNCT SURGICAL TECHNICIAN [address] [place] [address] Assigned Heart and Vascular Provider 05/28/23 11/29/24 Jelena David OD [address] [place] [address] MD Ophthalmology 06/15/23 Pao Joseph, RN Personal Advocate & Liaison (PAL) Nurse 08/01/23 11/07/23 Esha Grimm PA-C [address] [place] [phone] Assigned PCP 07/16/23 Valery Veronica PA-C [address] [place] [address] 332375 Physician Sponge Diver Dermatology 09/19/23 Rey Tay MD [address] [place] [address] 707735 MD Gastroenterology 09/20/23 Rocky Zepeda DO [address] [place] [address] 013855 Physician Gastroenterology 09/20/23 Philip Dumont MD [address] [place] [address] 056075 Physician Ophthalmology 09/22/23 Meredith Carrera PA-C [address] [place] [address] 276855 Assigned Gastroenterology Provider 11/01/23 Neil Kent MD [address] [address] Dermatology 11/02/23 [place] [address] [place] [address] Neurological Surgery 12/26/23 Audrey Waite PA-C [address] [place] [address] Physician Sponge Diver Dermatology 02/28/24 Valery Veronica PA-C [address] [place] [address] Physician Sponge Diver Dermatology 04/10/24 Herminia Hatch MD [address] [place] [address] [phone] Assigned Rheumatology Provider 07/02/24 Jelena David OD [address] [place] [address] [place] [address] Ophthalmology 08/30/24 [place] [address] [place] [address] Assigned Neuroscience Provider 09/30/24 Maru Man PA-C [address] [place] [address] Physician Sponge Diver Dermatology 10/03/24 Maru Man PA-C [address] [place] [address] Physician Sponge Diver Dermatology 10/22/24 Jelena David OD [facility] [place] [address] Assigned Surgical Provider 10/31/24 Fabiano Correa NP [address] [place] [address] Assigned Heart and Vascular Provider 11/30/24 documented as of this encounter
--- OUTSIDE RECORDS SUMMARY | 2024-12-17 21:39 | XMS_ITS | Encounter Summary ---
Author Organization [facility] Address [address] [place] [address] Care Team Providers Care Project Management Intern Name Role Phone Diaan Desir [facility] Unavailable [phone] Rain Galaviz PA-C Unavailable [phone] Tavia Wyatt MD Unavailable [phone] Erica Farrell APRN PIER RUNNER Unavailable Rich Barrett MD Unavailable [phone] Neil Kent MD Unavailable Diana Desir [facility] Unavailable [phone] Livan Sharif MD Unavailable Catherine Cm MD Unavailable + Valery Veronica PA-C Unavailable Brea Quinn MITTEN STITCHER PIER RUNNER Unavailable Brea Quinn MITTEN STITCHER PIER RUNNER Unavailable Jose Francisco Johnson MD Unavailable Alfonso Renteria MD Unavailable [phone] Esha Grimm PA-C Primary Care Provider Radha Lomeli APRN PIER RUNNER Unavailable Jelena David OD Unavailable [phone] Esha Grimm PA-C Unavailable [phone] Valery Veronica PA-C Unavailable Rey Tay MD Unavailable Rocky Zepeda DO Unavailable Philip Dumont MD Unavailable Meredith Carrera PA-C Unavailable [phone] Neil Kent MD Unavailable Juan Pablo [...] st Contact Info) Description 11/21/2023 [facility] [address] [place] [address] Sofia Alcantar Social History Tobacco [...] Score 0 10/25/2023 [facility] - Occupational Stress [...] exercise at this level? 30 min 03/10/2023 [place] Depression Scale Answer Date Recorded [place] Depression Score 5 01/14/2021 Last EPDS Self [...] PM CDT Legal Sex Female 4:13 AM DETECTIVE BUREAU CHIEF Gender Identity Female 03/02/2021 5:45 PM CDT Sexual Orientation Straight 02/28/2020 12 :51 AM CDT documented as of this encounter Plan of Treatment Upcoming Encounters Date Type Department Care Team (Late st Contact Info) Description 12/19/2024 2:00 PM CDT Office Visit [facility] [address] [place] [phone] Lauren Claudio PA-C [address] [place] [address] 12/26/2024 7:30 AM CDT Office Visit [facility] [address] [phone] Neil Kent MD [address] [place] [address] 488055 04/16/2025 11:00 AM CDT Virtual Visit [facility] [address] 4th [place] [phone] Meredith Carrera PA-C [address] [place] [address] 033465 documented as of this encounter Visit Diagnoses [...] Total Score: 4 06/20/20 23 8:40 AM DETECTIVE BUREAU CHIEF documented as of this encounter Care Teams Project Management Intern Relationship Specialty Start Date End Date Esha Grimm PA-C [address] [place] [phone] PCP - General Family Medicine 05/04/23 Diana Desir, [facility] [address] [place] [address] Pharmacist Pharmacist 04/17/21 Rain Galaviz PA-C [address] [place] [address] DR [address] Lara [place] [address] Physician Java Front End Web Developer Dermatology 04/28/21 Tavia Wyatt MD [address] [place] [address] DR [address] Lara ADA[facility] [place] [address] Dermatology 07/14/21 Erica Farrell APRN PIER RUNNER [address] [place] 70[address]25 Nurse Practitioner Cardiovascular Disease 09/09/21 Rich Barrett MD [address] [place] 312305 Physician Ophthalmology 01/21/22 Neil Kent MD 500 [place] [address] Dermatology 02/24/22 [facility] [address] [place] [address] Assigned MTM Pharmacist 04/07/22 Livan Sharif MD [address] [place] 279135 Cardiovascular Disease 05/14/22 Catherine Cm MD [address] [place] [address] Cardiovascular Disease 07/21/22 Valery Veronica PA-C 909 [place] [address] Physician Java Front End Web Developer Dermatology 07/21/22 Brea Quinn APRN PIER RUNNER [address] [place] [address] Nurse Practitioner Dermatology 09/21/22 Brea Quinn APRN PIER RUNNER 64[address] [place] [address] Assigned Surgical Provider 10/09/22 05/01/24 [place] [address] [place] [address] [address] Assigned Musculoskeletal Provider 10/09/22 05/01/24 Alfonso Renteria MD 5775 [facility] 200 [place] [address] Assigned Neuroscience Provider 04/02/23 09/29/24 Radha Lomeli APRN PIER RUNNER [address] [place] [id number] [place] [address] Assigned Heart and Vascular Provider 05/28/23 11/29/24 Jelena David OD [address] [facility] [place] [address] Ophthalmology 06/15/23 Esha Grimm PA-C [address] [place] [address] Assigned PCP 07/16/23 Valery Veronica PA-C [address] [place] [address] Physician Java Front End Web Developer Dermatology 09/19/23 Rey Tay MD [address] [place] [address] MD Gastroenterology 09/20/23 Rocky Zepeda DO [address] [place] [address] 193395 Physician Gastroenterology 09/20/23 Philip Dumont MD [address] [place] [address] Physician Ophthalmology 09/22/23 Meredith Carrera PA-C [address] [place] [address] 859095 Assigned Gastroenterology Provider 11/01/23 Neil Kent MD [address] 294550 Dermatology 11/02/23 [place] [address] [facility] [place] [address] Neurological Surgery 12/26/23 Audrey Waite PA-C [address] [place] [address] Physician Java Front End Web Developer Dermatology 02/28/24 Valery Veronica PA-C [address] [place] [address] Physician Java Front End Web Developer Dermatology 04/10/24 Herminia Hatch MD [address] [place] [address] Assigned Rheumatology Provider 07/02/24 Jelena David, OD [facility] [facility] [place] [address] Ophthalmology 08/30/24 [place] [address] [place] [address] Assigned Neuroscience Provider 09/30/24 Maru Man PA-C [address] [place] [address]2610 Physician Java Front End Web Developer Dermatology 10/03/24 Maru Man PA-C [address] [place] [address] Physician Java Front End Web Developer Dermatology 10/22/24 Jelena David OD [address] [facility] [place] [address] Assigned Surgical Provider 10/31/24 Fabiano [place], INFIRMARY ATTENDANT [address] [place] [address] Assigned Heart and Vascular Provider 11/30/24 documented as of this encounter
--- OUTSIDE RECORDS SUMMARY | 2024-12-17 21:39 | XMS_ITS | Encounter Summary ---
Author Organization [facility] Address [address] [place] [address] Care Team Providers Care Car Pusher Name Role Phone Diana Desir [facility] Unavailable [phone] Rain Galaviz PA-C Unavailable Tavia Wyatt MD Unavailable [phone] Erica Farrell APRN EDUCATIONAL PSYCHOLOGY TEACHER Unavailable Rich Barrett MD Unavailable [phone] Neil Kent MD Unavailable Diana Desir [facility] Unavailable Livan Sharif MD Unavailable Catherine Cm MD Unavailable + Valery Veronica PA-C Unavailable [phone] Brea Quinn COMPUTER INSTRUCTOR EDUCATIONAL PSYCHOLOGY TEACHER Unavailable Brea Quinn COMPUTER INSTRUCTOR EDUCATIONAL PSYCHOLOGY TEACHER Unavailable Jose Francisco Johnson MD Unavailable Alfonso Renteria MD Unavailable [phone] Esha Grimm PA-C Primary Care Provider Rahda Lomeli APRN EDUCATIONAL PSYCHOLOGY TEACHER Unavailable Jelena David OD Unavailable [phone] Esha Grimm PA-C Unavailable [phone] Valery Veronica PA-C Unavailable Rey Tay MD Unavailable Rocky Zepeda DO Unavailable Philip Dumont MD Unavailable Meredith Carrera PA-C Unavailable Neil Kent MD Unavailable Juan Pablo Emmanuel MD Unavailable Audrey Waite PA-C Unavailable [phone] JeremíasValery damon PA-C Unavailable Herminia Hatch MD Unavailable Jelena David OD Unavailable [phone] Juan Pablo Emmanuel MD Unavailable Maru Man PA-C Unavailable Maru Man PA-C Unavailable Jelena David OD Unavailable Fabiano Correa NP Unavailable [phone] Encounter Details Date Type Department Care Team (Late st Contact Info) Description 02/28/2024 [facility] Medical Advice [facility] [address] [place] [address] Rain Burnette, RN Social History [...] Score 1 02/07/2024 [facility] - Occupational [...] exercise at this level? 30 min 03/10/2023 [place] Depression Scale Answer Date Recorded [place] Depression Score 5 01/14/2021 Last EPDS Self [...] CDT Legal Sex Female 4:13 AM EARLY YEARS TEACHER Gender Identity Female 03/02/2021 5:45 PM CDT Sexual Orientation Straight 02/28/2020 12 :51 AM CDT documented as of this encounter Plan of Treatment Upcoming Encounters Date Type Department Care Team (Late st Contact Info) Description 12/19/2024 2:00 PM CDT Office Visit [facility] [address] [place] [phone] Lauren Claudio PA-C [address] [place] [address] 12/26/2024 7:30 AM CDT Office Visit [facility] [address] [phone] Neil Kent MD 500 [place] [address] 04/16/2025 11:00 AM CDT Virtual Visit [facility] [place] [address] [place] [address] 4th [place] [phone] Meredith Carrera PA-C [address] [place] [address] 164075 documented as of this encounter Visit Diagnoses [...] as of this encounter Care Teams Car Pusher Relationship Specialty Start Date End Date Esha Grimm PA-C [address] [place] [address] PCP - General Family Medicine 05/04/23 Diana Desir [facility] [address] [place] [address] Pharmacist Pharmacist 10/8/21 Rain Galaviz PA-C [address] [place] [address] [address] [place] [address] Physician Textile Scrap Salvager Dermatology 04/28/21 Tavia Wyatt MD [address] [place] [address] DR RA[address] Lara [place] [address] Dermatology 07/14/21 Erica Farrell APRN EDUCATIONAL PSYCHOLOGY TEACHER [address] [place] 130245 Nurse Practitioner Cardiovascular Disease 09/09/21 Rich Barrett MD [address] [place] 437835 Physician Ophthalmology 01/21/22 Neil Kent MD 500 [place], [place] 553005 Dermatology 02/24/22 Diana Desir, [facility] [address] [place] [address] Assigned MTM Pharmacist 04/07/22 Livan Sharif MD [address] [place] 839725 Cardiovascular Disease 05/14/22 Catherine Cm MD [address] [place] 515735 Cardiovascular Disease 07/21/22 Valery Veronica PA-C 909 [place] [address] Physician Textile Scrap Salvager Dermatology 07/21/22 Brea Quinn APRN EDUCATIONAL PSYCHOLOGY TEACHER 500 [place], [place] 837145 Nurse Practitioner Dermatology 09/21/22 Brea Quinn APRN EDUCATIONAL PSYCHOLOGY TEACHER 6401 [facility] [place] 986552 Assigned Surgical Provider 10/09/22 05/01/24 [place] [address] [address] [facility] 300 [place] [address] Assigned Musculoskeletal Provider 10/09/22 05/01/24 Alfonso Renteria MD 5775 [facility] 200 [place], [place] 527676 Assigned Neuroscience Provider 04/02/23 09/29/24 Radha Lomeli APRN EDUCATIONAL PSYCHOLOGY TEACHER 6405 [facility] [address] [place] 596005 Assigned Heart and Vascular Provider 05/28/23 11/29/24 Jelena David OD [address] [facility] [address] [place] [id number] Ophthalmology 06/15/23 Esha Grimm PA-C [address] [place] [address]975783 Assigned PCP 07/16/23 Valery Veronica PA-C 9 [place], [place] 823035 Physician Textile Scrap Salvager Dermatology 09/19/23 Rey Tay MD [address] [place] [address] MD Gastroenterology 09/20/23 Rocky Zepeda DO [address] [place] [address] 525745 Physician Gastroenterology 09/20/23 Philip Dumont MD [address] [place] [address] 478905 Physician Ophthalmology 09/22/23 Meredith Carrera PA-C [address] [place] [address] 165715 Assigned Gastroenterology Provider 11/01/23 Neil Kent MD [address] [place] [address] Dermatology 11/02/23 [place] [address] [place] [address] Neurological Surgery 12/26/23 Audrey Waite PA-C [address] [place] [address] Physician Textile Scrap Salvager Dermatology 02/28/24 Valery Veronica PA-C [address] [place] [address] Physician Textile Scrap Salvager Dermatology 04/10/24 Herminia Hatch MD [facility]5 [place] [address] Assigned Rheumatology Provider 07/02/24 Jelena David OD [address] [place] [address] [place] [address] Ophthalmology 08/30/24 [place] [address] [place] [address] Assigned Neuroscience Provider 09/30/24 Maru Man PA-C [address] [place] [address] Physician Textile Scrap Salvager Dermatology 10/03/24 Maru Man PA-C [address] [place] [address] Physician Textile Scrap Salvager Dermatology 10/22/24 Jelena David OD [address] [place] [address] [place] [address] Assigned Surgical Provider 10/31/24 Fabiano Correa NP [address] [place] [address] Assigned Heart and Vascular Provider 11/30/24 documented as of this encounter
--- OUTSIDE RECORDS SUMMARY | 2024-12-17 21:39 | XMS_ITS | Encounter Summary ---
Author Organization [facility] Address [address] [place] [address] Care Team Providers Care Income Tax Investigator Name Role Phone Diana Desir [facility] Unavailable Rain Galaviz PA-C Unavailable Tavia Wyatt MD Unavailable [phone] Erica Farrell APRN CERTIFIED PHARMACIST ASSISTANT Unavailable Rich Barrett MD Unavailable [phone] Neil [place] MD Unavailable Diana Desir [facility] Unavailable Livan Sharif MD Unavailable Catherine Cm MD Unavailable + Valery Veronica PA-C Unavailable Brea Quinn TOURING PRODUCTION MANAGER CERTIFIED PHARMACIST ASSISTANT Unavailable Brea Quinn TOURING PRODUCTION MANAGER CERTIFIED PHARMACIST ASSISTANT Unavailable Jose Francisco Johnson MD Unavailable Alfonso Renteria MD Unavailable [phone] Esha Grimm PA-C Primary Care Provider [phone] Radha Lomeli APRN CERTIFIED PHARMACIST ASSISTANT Unavailable Jelena David OD Unavailable [phone] Esha Grimm PA-C Unavailable [phone] Valery Veronica PA-C Unavailable [phone] Rey Tay MD Unavailable Rocky Zepeda DO [...] Team (Late st Contact Info) Description 03/05/2024 [facility] Medical Advice [facility] Gastroenterology Clinic [address] [place] [address] Rebecca Moctezuma Social History Tobacco [...] Recorded PHQ-2 Score 1 02/07/2024 [facility] - Occupational Stress Questionnaire [...] exercise at this level? 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 [address] [place] [address] [phone] Lauren Claudio PA-C [address] [place] [address] 12/26/2024 7:30 AM CDT Office Visit [facility] [address] [phone] Neil Kent MD [address] [place] [address] 04/16/2025 11:00 AM CDT Virtual Visit [facility] Gastro[facility]ology Clinic [place] [address] [place] [address] 4th [place] [phone] Meredith Carrera PA-C [address] [place] [address] 001215 documented as of this encounter Visit Diagnoses [...] documented as of this encounter Care Teams Income Tax Investigator Relationship Specialty Start Date End Date Esha Grimm PA-C [address] [place] [phone] PCP - General Family Medicine 05/04/23 Diana Desir, [facility] [address] [place] [address] Pharmacist Pharmacist 04/17/21 Rain Galaviz PA-C [address] [place] [address] [address] [place] [address] Physician System Software Programmer Dermatology 04/28/21 Tavia Wyatt MD [address] [place] [address] [address] [place] [address] Dermatology 07/14/21 Erica Farrell APRN CERTIFIED PHARMACIST ASSISTANT [address] [place] 405475 Nurse Practitioner Cardiovascular Disease 09/09/21 Rich Barrett MD [address] [place] 037915 Physician Ophthalmology 01/21/22 Neil Kent MD 500 [place], [place] 408765 Dermatology 02/24/22 Diana Desir, [facility] [address] [place], [place] 249736 Assigned MTM Pharmacist 04/07/22 Livan Sharif MD [address] [place] 763765 Cardiovascular Disease 05/14/22 Catherine Cm MD [address] [place] [address] Cardiovascular Disease 07/21/22 Valery Veronica PA-C 909 [place] [address] Physician System Software Programmer Dermatology 07/21/22 Brea Quinn APRN CERTIFIED PHARMACIST ASSISTANT 500 [place] [address] Nurse Practitioner Dermatology 09/21/22 Brea Quinn APRN CERTIFIED PHARMACIST ASSISTANT 6401 [place], [place] 982352 Assigned Surgical Provider 10/09/22 05/01/24 [place] [address] [address] [facility] 300 [place] [address] Assigned Musculoskeletal Provider 10/09/22 05/01/24 Alfonso Renteria MD 5775 [facility] 200 [place], [place] 89846416 Assigned Neuroscience Provider 04/02/23 09/29/24 Radha Lomeli APRN CERTIFIED PHARMACIST ASSISTANT 6405 [facility] [address] [place] 95[address]95 Assigned Heart and Vascular Provider 05/28/23 11/29/24 Jelena David OD 3305 [facility] [place] [id number] Ophthalmology 06/15/23 Esha Grimm PA-C [address] [place] [address]-795883 Assigned PCP 07/16/23 Valery Veronica PA-C [address] [place] [address] 9[address] Physician System Software Programmer Dermatology 09/19/23 Rey Tay MD [address] [place] [address] 300705 MD Gastroenterology 09/20/23 Rocky Zepeda DO [address] [place] [address] 407335 Physician Gastroenterology 09/20/23 Philip Dumont MD [address] [place] [address] 403505 Physician Ophthalmology 09/22/23 Meredith Carrera PA-C [address] [place] [address] 465425 Assigned Gastroenterology Provider 11/01/23 Neil Kent MD [address] [address] Dermatology 11/02/23 [place] [address] [place] [address] Neurological Surgery 12/26/23 Audrey Waite PA-C [address] [place] [address] Physician System Software Programmer Dermatology 02/28/24 Valery Veronica PA-C [id number] [place] [address] [place] [address] Physician System Software Programmer Dermatology 04/10/24 Herminia Hatch MD [address] [place] [address] 41698 Assigned Rheumatology Provider 07/02/24 Jelena David OD [address] [place] [address] [place] [address] Ophthalmology 08/30/24 [place] [address] [place] [address] Assigned Neuroscience Provider 09/30/24 Maru Man PA-C [address] [place] [address] Physician System Software Programmer Dermatology 10/03/24 Maru Man PA-C [address] [place] [address] Physician System Software Programmer Dermatology 10/22/24 Jelena David OD [address] [place] [address] [place] [address] Assigned Surgical Provider 10/31/24 Fabiano Correa NP [address] [place] [address] Assigned Heart and Vascular Provider 11/30/24 documented as of this encounter
--- OUTSIDE RECORDS SUMMARY | 2024-12-17 21:39 | XMS_ITS | Encounter Summary ---
Author Organization [facility] Address [address] [place] [address] 12199 Care Team Providers Care Physician Gynecologist Name Role Phone Diana Desir [facility] Unavailable Rain Galaviz PA-C Unavailable Tavia Wyatt MD Unavailable [phone] Erica Farrell APRN COMPUTER TYPESETTER KEYLINER Unavailable Rich Barrett MD Unavailable [phone] Neil Kent MD Unavailable Diana Desir [facility] Unavailable [phone] Livan Sharif MD Unavailable Catherine Cm MD Unavailable + Valery Veronica PA-C Unavailable [phone] Brea Quinn HOSPITALITY TEAM MEMBER COMPUTER TYPESETTER KEYLINER Unavailable Brea Quinn HOSPITALITY TEAM MEMBER COMPUTER TYPESETTER KEYLINER Unavailable Jose Francisco Johnson MD Unavailable Alfonso Renteria MD Unavailable [phone] Esha Grimm PA-C Primary Care Provider [phone] Radha Lomeli APRN COMPUTER TYPESETTER KEYLINER Unavailable Jelena David OD Unavailable [phone] Esha Grimm PA-C Unavailable [phone] Valery Veronica PA-C Unavailable Rey Tay [...] Contact Info) Description 03/19/2024 [facility] Medical Advice [facility] G[facility]ology Clinic [address] [place] [address] [facility] Social History Tobacco [...] Score 1 02/07/2024 [facility] - Occupational Stress Questionnaire [...] exercise at this level? 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 Gender Identity Female 03/02/2021 5:45 PM CDT Sexual Orientation Straight 02/28/2020 12 :51 AM CDT documented as of this encounter Plan of Treatment Upcoming Encounters Date Type Department Care Team (Late st Contact Info) Description 12/19/2024 2:00 PM CDT Office Visit [facility] [address] [place] [phone] Lauren Claudio PA-C [address] [place] [address] 12/26/2024 7:30 AM CDT Office Visit [facility] [address] [phone] Neil Kent MD 500 [place] [address] 04/16/2025 11:00 AM CDT Virtual Visit [facility] Gastro[facility]ology Clinic [place] [address] [place] [address] 4th [place] [phone] Meredith Carrera PA-C [address] [place] [address] 241565 documented as of this encounter Visit Diagnoses [...] as of this encounter Care Teams Physician Gynecologist Relationship Specialty Start Date End Date Esha Grimm PA-C [address] [place] [address] PCP - General Family Medicine 05/04/23 Diana Desir [facility] [address] [place] [address] Pharmacist Pharmacist 10/8/21 Rain Galaviz PA-C [address] [place] [address] [address] [place] [address] Physician Land Manager Dermatology 04/28/21 Tavia Wyatt MD [address] [place] [address] DR RA[address] Lara [place] [address] Dermatology 07/14/21 Erica Farrell APRN COMPUTER TYPESETTER KEYLINER [address] [place] 033985 Nurse Practitioner Cardiovascular Disease 09/09/21 Rich Barrett MD [address] [place] 819035 Physician Ophthalmology 01/21/22 Neil Kent MD 500 [place], [place] 438565 Dermatology 02/24/22 Diana Desir, [facility] [address] [place] [address] Assigned MTM Pharmacist 04/07/22 Livan Sharif MD [address] [place] 241365 Cardiovascular Disease 05/14/22 Catherine Cm MD [address] [place] 473795 Cardiovascular Disease 07/21/22 Valery Veronica PA-C 909 [place] [address] Physician Land Manager Dermatology 07/21/22 Brea Quinn APRN COMPUTER TYPESETTER KEYLINER 500 [place], [place] 226405 Nurse Practitioner Dermatology 09/21/22 Brea Quinn APRN COMPUTER TYPESETTER KEYLINER 6401 [facility] [place] 616632 Assigned Surgical Provider 10/09/22 05/01/24 [place] [address] [address] [facility] 300 [place] [address] Assigned Musculoskeletal Provider 10/09/22 05/01/24 Alfonso Renteria MD 5775 [facility] 200 [place], [place] 398676 Assigned Neuroscience Provider 04/02/23 09/29/24 Radha Lomeli APRN COMPUTER TYPESETTER KEYLINER 6405 [facility] [address] [place] 903055 Assigned Heart and Vascular Provider 05/28/23 11/29/24 Jelena David OD [address] [facility] [address] [place] [phone] Ophthalmology 06/15/23 Esha Grimm PA-C [address] [place] [address]516383 Assigned PCP 07/16/23 Valery Veronica PA-C 9 [place], [place] 038195 Physician Land Manager Dermatology 09/19/23 Rey Tay MD [address] [place] [address]82 MD Gastroenterology 09/20/23 Rocky Zepeda DO [address] [place] [address] 822215 Physician Gastroenterology 09/20/23 Philip Dumont MD [address] [place] [address] 747455 Physician Ophthalmology 09/22/23 Meredith Carrera PA-C [address] [place] [address] 712375 Assigned Gastroenterology Provider 11/01/23 Neil Kent MD [address] [place] [address] Dermatology 11/02/23 [place] [address] [place] [address] Neurological Surgery 12/26/23 Audrey Waite PA-C [address] [place] [address] Physician Land Manager Dermatology 02/28/24 Valery Veronica PA-C [address] [place] [address] Physician Land Manager Dermatology 04/10/24 Herminia Hatch MD [facility]5 [place] [address] Assigned Rheumatology Provider 07/02/24 Jelena David OD [address] [place] [address] [place] [address] Ophthalmology 08/30/24 [place] [address] [place] [address] Assigned Neuroscience Provider 09/30/24 Maru Man PA-C [address] [place] [address] Physician Land Manager Dermatology 10/03/24 Maru Man PA-C [address] [place] [address] Physician Land Manager Dermatology 10/22/24 Jelena David OD [address] [place] [address] [place] [address] Assigned Surgical Provider 10/31/24 Fabiano Correa NP [address] [place] [address] Assigned Heart and Vascular Provider 11/30/24 documented as of this encounter
--- OUTSIDE RECORDS SUMMARY | 2024-12-17 21:40 | XMS_ITS | Encounter Summary ---
Author Organization [facility] Address [address] [place] [address] Care Team Providers Care Bioinformatician Name Role Phone Lita Oseguera Unavailable Unavailable Marija Edgar APRN SCHOOL COMMUNITY RELATIONS COORDINATOR Primary Care Provider + Chanelle Mccann APRN CNM Unavailab le Kyara De La Fuente RN Unavailable [phone] Marija Edgar APRN SCHOOL COMMUNITY RELATIONS COORDINATOR Unavailable Mynor Broussard MD Unavailable [phone] Keisha Dotson MD Unavailable Mary Mejia Unavailable Unavailable Stacey Briones DIRECTOR OF ADVERTISING SALES Unavailable [phone] Lesley Guillermo CHW Unavailable Mary Mejia Unavailable Unavailable Lita Oseguera Unavailable Unavailable Galo Burrell MD Unavailable Unavailable Cristina Wood Unavailable Lesley Guillermo CHW Unavailable Meredith Bedoya Unavailable Unavailable Cristina Wood Unavailable Diana Desir [facility] Unavailable Ruhland, Arin Lena PA-C Unavailable Summer Lara MD Unavailable [phone] Summer Lara MD Unavailable [phone] Summer Lara MD Unavailable [phone] Tavia Wyatt MD Unavailable [phone] Johnny Murillo MD Unavailable [phone] Erica Farerll APRN SCHOOL COMMUNITY RELATIONS COORDINATOR Unavailable VikasTeresita H Unavailable Tavia Wyatt MD Unavailable [phone] Diana Desir [facility] Unavailable [phone] Rich Barrett MD Unavailable [phone] Neil Kent MD Unavailable Roney Story [facility] Unavailable Erica Farrell APRN SCHOOL COMMUNITY RELATIONS COORDINATOR Unavailable Diana Desir [facility] Unavailable [phone] Jelena David OD Unavailable [phone] Galo Burrell MD Unavailable Unavailable Livan Sharif MD Unavailable Livan Sharif MD Unavailable Catherine Cm MD Unavailable + Valery Veronica PA-C Unavailable [phone] Catherine Cm MD Unavailable + Johnny Murillo MD Unavailable +[phone] Brea Quinn APRN SCHOOL COMMUNITY RELATIONS COORDINATOR Unavailable [phone] Brea Quinn [employer] COMMUNITY RELATIONS COORDINATOR Unavailable [phone] Jose Francisco Johnson MD Unavailable Livan Sharif MD Unavailable Catherine Cm MD Unavailable + Sydnie Martinez RN Unavailable Unavailable Alfonso Renteria MD Unavailable [phone] Esha Grimm PA-C Primary Care Provider Cheng Todd PA-C Unavailable Radha Lomeli APRN, CNP Unavailable Jelena David OD Unavailable Pao Joseph RN Unavailable Unavailable Esha Grimm PA-C Unavailable [phone] Valery Veronica PA-C Unavailable Rey Tay [...] Team (Late st Contact Info) Description 07/17/2020 [facility] [address], [address] [place] [address] Keisha Dotson MD [address] [place] [address] Social History Tobacco Use Types Packs/Day Years [...] PM CDT Legal 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 No / Unsure 06/24/2020 3:01 PM GOLF SALES ASSOCIATE documented as of this encounter [...] her shewouldn't need medication her whole life. SALES ASSOCIATE documented in this encounter Plan of Treatment Upcoming Encounters Date Type Department Care Team (Late st Contact Info) Description 12/19/2024 2:00 PM CDT Office Visit [facility] [address] [place] [phone] Lauren Claudio PA-C [id number] [place] [address] 12/26/2024 7:30 AM CDT Office Visit [facility] [address] [phone] Neil Kent MD [address] [place] [address] 04/16/2025 11:00 AM CDT Virtual Visit [facility] [place] [address] [place] [address] [address] [place] [phone] Meredith Carrera PA-C [address] [place] [address] documented as of this encounter Visit Diagnoses Not on filedocumented in this encounter Additional Health Concerns Infection Onset Date Last Indicated Resolved Time Rule Out COVID-19 07/30/2020 07/30/2020 07/30/2020 7:11 PM [employer] SALES ASSOCIATE Rule Out COVID-19 08/30/2020 08/30/2020 08/30/2020 5:05 PM GOLF SALES ASSOCIATE Rule Out COVID-19 09/24/2020 09/24/2020 09/24/2020 9:24 AM CDT Rule Out COVID-19 11/05/2020 11/05/2020 11/06/2020 1:09 PM CDT Rule Out COVID-19 05/11/2021 05/11/202105/13/2021 10:18 AM CDT Rule Out COVID-19 07/13/2021 07/13/2021 07/14/2021 3:04 PM GOLF SALES ASSOCIATE Rule Out COVID-19 07/18/2021 07/18/2021 07/20/2021 1:56 PM GOLF SALES ASSOCIATE COVID-19 07/18/2021 07/18/2021 08/08/2021 11:3 9 PM GOLF SALES ASSOCIATE Rule Out COVID-19 12/18/2021 12/18/2021 12/19/2021 11:34 AM CDT Rule Out COVID-19 02/24/2022 02/24/2022 02/25/2022 1:08 PM CDT Rule Out COVID-19 04/26/2022 04/26/2022 04/26/2022 6:47 AM CDT Rule Out COVID-19 05/17/2022 05/17/2022 05/17/2022 10:20 PM GOLF SALES ASSOCIATE Rule Out COVID-19 06/09/2022 06/09/2022 06/09/2022 9:35 AM GOLF SALES ASSOCIATE COVID-19 06/09/2022 06/09/2022 06/30/2022 11:4 1 PM GOLF SALES ASSOCIATE Rule Out COVID-19 11/10/2022 11/10/2022 [...] Depression Total Score: 9 06/25/20 7:04 AM [employer]OLF SALES ASSOCIATE documented as of this encounter Care Teams Bioinformatician Relationship Specialty Start Date End Date Marija Edgar APRN SCHOOL COMMUNITY RELATIONS COORDINATOR PCP - General Nurse Practitioner 04/30/20 04/14/23 Esha Grimm PA-C [address] [place] [phone] PCP - General Family Medicine 05/04/23 Lita Oseguera Personal Advocate & Liaison (PAL) 02/28/20 03/27/23 Chanelle Mccann APRN CNM [address] [facility] [address] [place] [address] Assigned OBGYN Provider 05/02/2005/09 Kyara De La Fuente, RN Specialty Risk Management Professional Neurology 06/04/20 03/05/21 Marija Edgar APRN SCHOOL COMMUNITY RELATIONS COORDINATOR Assigned PCP 06/08/20 04/29/23 Mynor Broussard MD [address] [facility] 500 [place], [place] [address] Assigned Surgical Provider 06/01/20 11/28/21 Keisha Dotson MD [address] [place] [address] Assigned Neuroscience Provider 06/04/20 04/01/23 Mary Mejia Financial Resource Worker 08/07/20 08/21/20 Stacey Briones, [facility] Lead Risk Management Professional Primary Care - CC 08/11/2012/30 Lesley Guillermo, [facility] Community Health Worker 08/11/2010/01 Mary Mejia Financial Resource Worker 09/02/20 10/06/20 Lita Oseguera Personal Advocate & Liaison (PAL) Family Medicine 09/10/20 09/21/20 Galo Burrell MD Assigned Heart and Vascular Provider 10/05/20 04/02/22 Cristina Wood Financial Resource Worker 10/07/20 10/14/20 Lesley Guillermo, [facility] Community Health Worker 10/23/2012/30 Meredith Bedoya Financial Resource Worker 10/23/20 11/23/20 Cristina Wood Financial Resource Worker 02/09/21 02/09/21 Diana Desir, [facility] [address] [facility] [place] [place] [phone] Pharmacist Pharmacist 04/17/21 Rain Galaviz PA-C [address] [place] [address] [address] [place] [place], [place] [phone] Physician Manager Of Software Dermatology 04/28/21 Summer Lara MD [address] [place] [address] Assigned OBGYN Provider 05/10/2105/23 Summer Lara MD [address] [place] [address] Assigned OBGYN Provider 05/31/21 2 Summer Lara MD [address] [place], [place] [address] Assigned OBGYN Provider 05/24/2105/30 Tavia Wyatt MD [address] [facility] [address] [place], [place] [phone] Dermatology 07/14/21 Johnny Murillo MD [address] [place], [place] [address] Assigned Musculoskeletal Provider 08/30/21 03/17/22 Erica Farrell APRN SCHOOL COMMUNITY RELATIONS COORDINATOR [address] [facility] [address] [place] [address] Nurse Practitioner Cardiovascular Disease 09/09/21 Teresita Bean [facility] [address] [place], [place] [phone] Pharmacist Pharmacist 09/24/21 09/29/21 Tavia Wyatt MD [facility] [place], [place] 5145[address] Assigned Surgical Provider 11/29/21 05/07/22 [facility] [address] [place], [place] [address] Assigned MTM Pharmacist 01/02/22 Rich Barrett MD [address] [place], [place] [address] Physician Ophthalmology 01/21/22 Neil Kent MD [address] [place], [place] [phone] Dermatology 02/24/22 [place] [address] [facility] [address] [place] [address] Assigned Musculoskeletal Provider 03/20/22 08/13/22 Erica Farrell APRN SCHOOL COMMUNITY RELATIONS COORDINATOR [address] [place] [address] Assigned Heart and Vascular Provider 04/03/22 04/16/22 [facility] [address] [place] [address] Assigned MTM Pharmacist 04/07/22 Jelena David OD [address] [facility] [place] [address] Assigned Surgical Provider 05/08/22 10/08/22 Galo Brurell MD Assigned Heart and Vascular Provider 04/17/22 06/11/22 Livan Sharif MD [address] [place] [id number] Cardiovascular Disease 05/14/22 Livan Sharif MD [address] [address] [place] 528665 Assigned Heart and Vascular Provider 06/12/22 07/23/22 Catherine Cm MD [address] [place] [address] Cardiovascular Disease 07/21/22 Valery Veronica, PA-C [address] [place] [address] Physician Manager Of Software Dermatology 07/21/22 Catherine Cm MD [address] [place] [address] Assigned Heart and Vascular Provider 07/24/22 11/05/22 Johnny Murillo MD [address] [place] [address] Assigned Musculoskeletal Provider 08/14/22 10/08/22 Brea Quinn APRN SCHOOL COMMUNITY RELATIONS COORDINATOR [address] [place] [address] [phone] Nurse Practitioner Dermatology 09/21/22 Brea Quinn APRN SCHOOL COMMUNITY RELATIONS COORDINATOR [address] [place] [address] [place] [address] Assigned Surgical Provider 10/09/22 05/01/24 [place] [address] [place] [address] [place] [address] [place] [address] Assigned Musculoskeletal Provider 10/09/22 05/01/24 Livan Sharif MD [address] [place] [address] Assigned Heart and Vascular Provider 11/06/22 11/12/22 Catherine Cm MD [address] [place] 823715 Assigned Heart and Vascular Provider 11/13/22 05/27/23 Sydnie Martinez RN Personal Advocate & Liaison (PAL) Family Medicine 03/28/23 07/31/23 Alfonso Renteria MD [address] [facility] 200 [place] [address] Assigned Neuroscience Provider 04/02/23 09/29/24 Cheng Todd PA-C [address] [place] [address] [id number] Assigned PCP 04/30/23 07/15/23 Radha Lomeli APRN SCHOOL COMMUNITY RELATIONS COORDINATOR [address] [place] 317125 Assigned Heart and Vascular Provider 05/28/23 11/29/24 Jelena David OD [address] [facility] [place] [address] Ophthalmology 06/15/23 Pao Joseph, VJ Personal Advocate & Liaison (PAL) Nurse 08/01/23 11/07/23 Esha Grimm PA-C [address] [place] [phone] Assigned PCP 07/16/23 Valery Veronica PA-C [address] [place] [address] 901515 Physician Manager Of Software Dermatology 09/19/23 Rey Tay MD [address] [place] [address] [phone] MD Gastroenterology 09/20/23 Rocky Zepeda DO [address] [place] [address] [phone] Physician Gastroenterology 09/20/23 Philip Dumont MD [address] [place] [address] 456235 Physician Ophthalmology 09/22/23 Meredith Carrera PA-C [address] [place] [address] 885855 Assigned Gastroenterology Provider 11/01/23 Neil Kent MD [address] 671[address] Dermatology 11/02/23 [place] [address] [place], [place] [address]85[address] Neurological Surgery 12/26/23 Audrey Waite PA-C [address] [place] [address] Physician Manager Of Software Dermatology 02/28/24 Valery Veronica PA-C 692168 [address], [place] [address] Physician Manager Of Software Dermatology 04/10/24 Herminia Hatch MD [facility] [place] [address] Assigned Rheumatology Provider 07/02/24 Jelena David OD [facility] [facility] [place] [address] Ophthalmology 08/30/24 [place] [address] [place] [address] Assigned Neuroscience Provider 09/30/24 Maru Man PA-C [address] [place] [address] Physician Manager Of Software Dermatology 10/03/24 Maru Man PA-C [address] [place] [address] Physician Manager Of Software Dermatology 10/22/24 Jelena David OD [facility] [place] [address] Assigned Surgical Provider 10/31/24 Fabiano Correa NP [address] [place] [address] Assigned Heart and Vascular Provider 11/30/24 documented as of this encounter
--- OUTSIDE RECORDS SUMMARY | 2024-12-17 21:40 | XMS_ITS | Encounter Summary ---
Author Organization [facility] Address [address] [place] [address] Care Team Providers Care Cargo Station Worker Name Role Phone Lita Oseguera Unavailable Unavailable Rakesh Cid PA-C Unavailable Marija Edgar APRN CLINICAL STAFF EDUCATOR Primary Care Provider + Chanelle Mccann APRN CN Unavailab le Lesley Guillermo CHW Unavailable [phone] Kyara De La Fuente RN Unavailable [phone] Marija Edgar APRN [facility] Unavailable [phone] Mynor Broussard MD Unavailable [phone] Keisha Dotson MD Unavailable Mary Mejia Unavailable Unavailable Stacey Briones DE IONIZER OPERATOR Unavailable Lesley Guillermo CHW Unavailable [phone] Mary Mejia Unavailable Unavailable Lita Oseguera Unavailable Unavailable Galo Burrell MD Unavailable Unavailable Cristina Wood Unavailable Lesley Guillermo CHW Unavailable [phone] Meredith Bedoya Unavailable Unavailable Cristina Wood Unavailable Diana Desir [facility] Unavailable [phone] Rain Galaviz PA-C Unavailable Summer Lara MD Unavailable [phone] Summer Lara MD Unavailable [phone] Summer Lara MD Unavailable [phone] Tavia Wyatt MD Unavailable [phone] Johnny Murillo MD Unavailable [phone] Erica Farrell APRN CLINICAL STAFF EDUCATOR Unavailable Teresita Bean [facility] Unavailable Tavia Wyatt MD Unavailable [phone] Diana Desir [facility] Unavailable [phone] Rich Barrett MD Unavailable Neil Kent MD Unavailable Roney StoryM Unavailable Erica Farrell APRN CLINICAL STAFF EDUCATOR Unavailable + Diana Desir [facility] Unavailable [phone] Jelena David OD Unavailable Galo Burrell MD Unavailable Unavailable Livan Sharif MD Unavailable Livan Sharif MD Unavailable + Catherine Cm MD Unavailable + Valery Veronica PA-C Unavailable [phone] Catherine Cm MD Unavailable + Johnny Murillo MD Unavailable [phone] Brea Quinn APRN CLINICAL STAFF EDUCATOR Unavailable [phone] [place], Brea P SPRAY DRY OPERATOR CLINICAL STAFF EDUCATOR Unavailable [phone] Jose Francisco Johnson MD Unavailable Livan Sharif MD Unavailable Catherine Cm MD Unavailable + Sydnie Martinez RN Unavailable Unavailable Alfonso Renteria MD Unavailable Esha Grimm PA-C Primary Care Provider Cheng Todd PA-C Unavailable Armani Radha Sia SPRAY DRY OPERATOR CLINICAL STAFF EDUCATOR Unavailable [phone] Jelena David OD Unavailable [phone] Pao Joseph RN Unavailable Unavailable Esha Grimm PA-C Unavailable [phone] Valery Veronica PA-C Unavailable Rey Tay MD Unavailable Rocky Zepeda DO Unavailable Philip Dumont MD Unavailable [phone] Meredith Carrera PA-C Unavailable [phone] Neil Kent MD Unavailable Juan Pablo Emmanuel MD Unavailable Audrey Waite PA-C Unavailable Valery Veronica PA-C Unavailable Herminia Hatch MD Unavailable Jelena David OD Unavailable [phone] Juan Pablo Emmanuel MD Unavailable Maru Man PA-C Unavailable [phone] Maru Man PA-C Unavailable [phone] Jelena David OD Unavailable Fabiano Correa ARMATURE BANDER Unavailable Encounter Details Date Type Department Care Team (Late st Contact Info) Description 06/05/2020 MyC Medical Advice [address] [phone] Marija Edgar APRN CNP [address] [place] [address] Social History Tobacco Use Types Packs/Day [...] CDT Legal Sex Female 4:13 AM ADJUNCT PHILOSOPHY FACULTY Gender Identity Female 03/02/2021 5:45 PM CDT Sexual Orientation Straight 02/28/2020 12 :51 AM CDT COVID-19 Exposure Response Date Recorded In the last month, have you been in contact with someone who was confirmed or suspected to have Coronavirus / COVID-19? No / Unsure 06/04/2020 10:30 AM ADJUNCT PHILOSOPHY FACULTY documented as of this encounter Miscellaneous Notes * Telephone Encounter - Marija Edgar APRN CNP - 06/09/2020 9:38 AM ADJUNCT PHILOSOPHY FACULTY Those referrals have been placed. The mental health attempted call but patient did not answer. Please have patient check voicemail's or await one further follow-up call. They will call her to set up Holter monitor. Thank you Marija Edgar APRN CNP on 06/09/2020 at 9:40 AM NCT PHILOSOPHY FACULTY documented in this encounter Plan of Treatment Upcoming Encounters Date Type Department Care Team (Late st Contact Info) Description 12/19/2024 2:00 PM CDT Office Visit [address] [place] [phone] Lauren Claudio PA-C [address] [place] [address] 12/26/2024 7:30 AM CDT Office Visit [facility] [address] [phone] Neil Kent MD [address] [place] [address] 04/16/2025 11:00 AM CDT Virtual Visit [facility] [address] [place] [address] 4th [place] [phone] Meredith Carrera PA-C [address] [place] [address] documented as of this encounter Visit Diagnoses Not on filedocumented in this encounter Additional Health Concerns Infection Onset Date Last Indicated Resolved Time Rule Out COVID-19 07/30/2020 07/30/2020 07/30/2020 7:11 PM ADJUNCT PHILOSOPHY FACULTY Rule Out COVID-19 08/30/2020 08/30/2020 08/30/2020 5:05 PM ADJUNCT PHILOSOPHY FACULTY Rule Out COVID-19 09/24/2020 09/24/2020 09/24/2020 9:24 AM CDT Rule Out COVID-19 11/05/2020 11/05/2020 11/06/2020 1:09 PM CDT Rule Out COVID-19 05/11/2021 05/11/2021 05/13/2021 10:18 AM CDT Rule Out COVID-19 07/13/2021 07/13/2021 07/14/2021 3:04 PM ADJUNCT PHILOSOPHY FACULTY Rule Out COVID-19 07/18/2021 07/18/2021 07/20/2021 1:56 PM ADJUNCT PHILOSOPHY FACULTY COVID-19 07/18/2021 07/18/2021 08/08/2021 11:3 9 PM ADJUNCT PHILOSOPHY FACULTY Rule Out COVID-19 12/18/2021 12/18/2021 12/19/2021 11:34 AM CDT Rule Out COVID-19 02/24/2022 02/24/2022 02/25/2022 1:08 PM CDT Rule Out COVID-19 04/26/2022 04/26/2022 04/26/2022 6:47 AM CDT Rule Out COVID-19 05/17/2022 05/17/2022 05/17/2022 10:20 PM ADJUNCT PHILOSOPHY FACULTY Rule Out COVID-19 06/09/2022 06/09/2022 06/09/2022 9:35 AM ADJUNCT PHILOSOPHY FACULTY COVID-19 06/09/2022 06/09/2022 06/30/2022 11:4 1 PM ADJUNCT PHILOSOPHY FACULTY Rule Out COVID-19 11/10/2022 11/10/2022 11/11/2022 [...] Total Score: 9 06/04/20 20 10:35 AM ADJUNCT PHILOSOPHY FACULTY documented as of this encounter Care Teams Cargo Station Worker Relationship Specialty Start Date End Date Marija Edgar APRN CLINICAL STAFF EDUCATOR [address] [place] [address] PCP - General Nurse Practitioner 04/30/20 04/14/23 sEha Grimm PA-C [address] [place] [phone] PCP - General Family Medicine 05/04/23 Lita Oseguera Personal Advocate & Liaison (PAL) 02/28/20 03/27/23 Rakesh Cid PA-C [address] [place] [address] Assigned PCP 03/02/20 06/07/20 Chanelle Mccann APRN CNM [address] [facility] [address] [place] [address] Assigned OBGYN Provider 05/02/2005/09 Lesley Guillermo, CHW Community Health Worker 05/30/2005/12 Kyara De La Fuente, RN Specialty Irrigation Equipment Remover Neurology 06/04/20 03/05/21 Marija Edgar APRN CLINICAL STAFF EDUCATOR [address] [facility] [place] [address] Assigned PCP 06/08/20 04/29/23 Mynor Broussard MD [address] [facility] [address] [place], [place] [address] Assigned Surgical Provider 06/01/20 11/28/21 Keisha Dotson MD [address] [place], [place] 3325[address] Assigned Neuroscience Provider 06/04/20 04/01/23 Mary Mejia Financial Resource Worker 08/07/20 08/21/20 Stacey Birones, [facility] Lead Irrigation Equipment Remover Primary Care - CC 08/11/2012/30 Lesley Guillermo, [facility] Community Health Worker 08/11/2010/01 Mary Mejia Financial Resource Worker 09/02/20 10/06/20 Lita Oseguera Personal Advocate & Liaison (PAL) Family Medicine 09/10/20 09/21/20 Galo Burrell MD Assigned Heart and Vascular Provider 10/05/20 04/02/22 Cristina Wood Financial Resource Worker 10/07/20 10/14/20 Lesley Guillermo, [facility] Community Health Worker 10/23/2012/30 Meredith Bedoya Financial Resource Worker 10/23/20 11/23/20 Cristina Wood Financial Resource Worker 02/09/21 02/09/21 Diana Desir, [facility] [address] [place], [place] [phone] Pharmacist Pharmacist 04/17/21 Rain Galaviz PA-C [address] [place] [address] [address] [place], [place] [phone] Physician Glue Clamp Operator Dermatology 04/28/21 Summer Lara MD [address] [place] [address] Assigned OBGYN Provider 05/10/2105/23 Summer Lara MD [address] [place] [address] Assigned OBGYN Provider 05/31/21 2 Summer Lara MD [address] [place] [address] Assigned OBGYN Provider 05/24/2105/30 Tavia Wyatt MD [address] [place] [address] Dermatology 07/14/21 Johnny Murillo MD [address] [place] [address] Assigned Musculoskeletal Provider 08/30/21 03/17/22 Erica Farrell APRN CLINICAL STAFF EDUCATOR [address] [facility] [address] [place], [place] 3[address] Nurse Practitioner Cardiovascular Disease 09/09/21 Teresita Bean [facility] [address] [place] [phone] Pharmacist Pharmacist 09/24/21 09/29/21 Tavia Wyatt MD [address] [place] [address] Assigned Surgical Provider 11/29/21 05/07/22 Diana Desir, [facility] [address] [place] [address] Assigned MTM Pharmacist 01/02/22 Rich Barrett MD [address] [place] [address] Physician Ophthalmology 01/21/22 Neil Kent MD [address] [place] [address] Dermatology 02/24/22 Roney Story DPM [address] [facility] [address] [place] [address] Assigned Musculoskeletal Provider 03/20/22 08/13/22 Erica Farrell APRN CLINICAL STAFF EDUCATOR [address] [place] [address] Assigned Heart and Vascular Provider 04/03/22 04/16/22 [facility] [address] [place] [address] Assigned MTM Pharmacist 04/07/22 Jelena David OD [address] [facility] [place] [address] Assigned Surgical Provider 05/08/22 10/08/22 Galo Burrell MD Assigned Heart and Vascular Provider 04/17/22 06/11/22 Livan Sharif MD [address] [place] 239215 Cardiovascular Disease 05/14/22 Livan Sharif MD [address] [place] [address] Assigned Heart and Vascular Provider 06/12/22 07/23/22 Catherine Cm MD [address] [place] [address] Cardiovascular Disease 07/21/22 Valery Veronica PA-C [address] [place] [address] Physician Glue Clamp Operator Dermatology 07/21/22 Catherine Cm MD [address] [place] [place] [address] Assigned Heart and Vascular Provider 07/24/22 11/05/22 Johnny Murillo MD [address] [place] [address] Assigned Musculoskeletal Provider 08/14/22 10/08/22 Brea Quinn APRN CLINICAL STAFF EDUCATOR [address] [place] [address] Nurse Practitioner Dermatology 09/21/22 Brea Quinn APRN CLINICAL STAFF EDUCATOR [address] [place] [address] Assigned Surgical Provider 10/09/22 05/01/24 [place] [address] [place] [address] Assigned Musculoskeletal Provider 10/09/22 05/01/24 Livan Sharif MD [address] [place] [address] Assigned Heart and Vascular Provider 11/06/22 11/12/22 Catherine Cm MD [address] [facility] [address] [place] [address] Assigned Heart and Vascular Provider 11/13/22 05/27/23 Sydnie Martinez RN Personal Advocate & Liaison (PAL) Family Medicine 03/28/23 07/31/23 Alfonso Renteria MD [address] [facility] 200 [place] [address] Assigned Neuroscience Provider 04/02/23 09/29/24 Cheng Todd PA-C [address] [place] [address] Assigned PCP 04/30/23 07/15/23 Radha Lomeli APRN CLINICAL STAFF EDUCATOR [address] [place] [address] Assigned Heart and Vascular Provider 05/28/23 11/29/24 Jelena David OD [address] [facility] [place] [address] Ophthalmology 06/15/23 Pao Joseph, VJ Personal Advocate & Liaison (PAL) Nurse 08/01/23 11/07/23 Esha Grimm PA-C [address] [place] [address] Assigned PCP 07/16/23 Valery Veronica PA-C [address] [place] [address] Physician Glue Clamp Operator Dermatology 09/19/23 Rey Tay MD [address] [place] [address] MD Gastroenterology 09/20/23 Rocky Zepeda DO [address] [place] [address] Physician Gastroenterology 09/20/23 Philip Dumont MD [address] [place] [address] Physician Ophthalmology 09/22/23 Meredith Carrera PA-C [address] [place] [address] Assigned Gastroenterology Provider 11/01/23 Neil Kent MD [address] [address] Dermatology 11/02/23 [place] [address] [place] [address] Neurological Surgery 12/26/23 Audrey Waite PA-C [address] [place] [address] 586[address] Physician Glue Clamp Operator Dermatology 02/28/24 Valery Veronica PA-C [address]138 [address] [place] [address] Physician Glue Clamp Operator Dermatology 04/10/24 Herminia Hatch MD [facility]5 [place], [place] [address] Assigned Rheumatology Provider 07/02/24 Jelena David OD [address] [facility] [place] [address] Ophthalmology 08/30/24 [place] [address] [place] [address] Assigned Neuroscience Provider 09/30/24 Maru Man PA-C [address] [place] [address] Physician Glue Clamp Operator Dermatology 10/03/24 Maru Man PA-C [address] [place] [address] Physician Glue Clamp Operator Dermatology 10/22/24 Jelena David OD [address] [facility] [place] [address] Assigned Surgical Provider 10/31/24 Fabiano Correa NP [address] [place] [address] Assigned Heart and Vascular Provider 11/30/24 documented as of this encounter
--- OUTSIDE RECORDS SUMMARY | 2024-12-17 21:40 | XMS_ITS | Encounter Summary ---
Author Organization [place] Address [address] [place] [address] Care Team Providers Care On Site Property Manager Name Role Phone Lita Oseguera Unavailable Unavailable Rakesh Cid PA-C Unavailable Marija Edgar APRN ANTI TANK MISSILEMAN Primary Care Provider + Chanelle Mccann APRN CN Unavailab le Lesley Guillermo CHW Unavailable [phone] Kyara De La Fuente RN Unavailable [phone] Marija Edgar APRN [facility] Unavailable Mynor Broussard MD Unavailable [phone] Keisha Dotson MD Unavailable [phone] Mary Mejia Unavailable Unavailable Stacey Briones DIRECT SUPPORT PROFESSIONAL Unavailable Lesley Guillermo CHW Unavailable [phone] Mary Mejia Unavailable Unavailable Lita Oseguera Unavailable Unavailable Galo Burrell MD Unavailable Unavailable Cristina Wood Unavailable Lesley Guillermo CHW Unavailable [phone] Meredith Bedoya Unavailable Unavailable Cristina Wood Unavailable Diana Desir [facility] Unavailable [phone] Rain Galaviz PA-C Unavailable Summer Lara MD Unavailable [phone] Summer Lara MD Unavailable [phone] Summer Lara MD Unavailable [phone] Tavia Wyatt MD Unavailable [phone] Johnny Murillo MD Unavailable [phone] Erica Farrell APRN ANTI TANK MISSILEMAN Unavailable Teresita Bean [facility] Unavailable Tavia Wyatt MD Unavailable [phone] Diana Desir [facility] Unavailable [phone] Rich Barrett MD Unavailable Neil Kent MD Unavailable Roney StoryM Unavailable Erica Farrell APRN ANTI TANK MISSILEMAN Unavailable + Diana Desir [facility] Unavailable [phone] Jelena David OD Unavailable Galo Burrell MD Unavailable Unavailable Livan Sharif MD Unavailable Livan Sharif MD Unavailable + Catherine Cm MD Unavailable + Valery Veronica PA-C Unavailable [phone] Catherine Cm MD Unavailable + Johnny Murillo MD Unavailable [phone] Brea Quinn APRN ANTI TANK MISSILEMAN Unavailable [phone] [place], Brea P GEOSPATIAL IMAGE ANALYST ANTI TANK MISSILEMAN Unavailable [phone] Jose Francisco Johnson MD Unavailable Livan Sharif MD Unavailable Catherine Cm MD Unavailable + Sydnie Martinez RN Unavailable Unavailable Alfonso Renteria MD Unavailable Esha Grimm PA-C Primary Care Provider Cheng Todd PA-C Unavailable Armani Radha Sia GEOSPATIAL IMAGE ANALYST ANTI TANK MISSILEMAN Unavailable [phone] Jelena David OD Unavailable [phone] Pao Joseph RN Unavailable Unavailable Esha Grimm PA-C Unavailable [phone] Valery Veronica PA-C Unavailable Rey Tay MD Unavailable Rocky Zepeda DO Unavailable Philip Dumont MD Unavailable [phone] Meredith Carrera PA-C Unavailable [phone] Neil Kent MD Unavailable Juan Pablo Emmanuel MD Unavailable Audrye Waite PA-C Unavailable Valery Veronica PA-C Unavailable Herminia Hatch MD Unavailable Jelena David OD Unavailable [phone] Juan Pablo Emmanuel MD Unavailable Maru Man PA-C Unavailable [phone] Maru Man PA-C Unavailable [phone] Jelena David OD Unavailable aFbiano Correa SENIOR C SOFTWARE ENGINEER Unavailable [phone] Encounter Details Date Type Department Care Team (Late st Contact Info) Description 05/23/2020 MyC Medical Advice [facility] [address] [place] [phone] Marija Edgar, ARLENE ANTI TANK MISSILEMAN [address] [place] [address] Social History Tobacco Use Types [...] PM CDT Legal Sex Female 4:13 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 No / Unsure 05/12/2020 9:03 AM CARTRIDGE ASSEMBLING MACHINE ADJUSTER documented as of this encounter Plan of Treatment Upcoming Encounters Date Type Department Care Team (Late st Contact Info) Description 12/19/2024 2:00 PM CDT Office Visit [facility] [address] [place] [phone] Lauren Claudio PA-C [address] [place], [place] [phone] 12/26/2024 7:30 AM CDT Office Visit [facility] [address] [phone] Neil Kent MD [address] [place] [address] 04/16/2025 11:00 AM CDT Virtual Visit [facility] [address] [place] [phone] Meredith Carrera PA-C [address] [place] [address] documented as of this encounter Visit Diagnoses Not on filedocumented in this encounter Additional Health Concerns Infection Onset Date Last Indicated Resolved Time Rule Out COVID-19 07/30/2020 07/30/2020 07/30/2020 7:11 PM CARTRIDGE ASSEMBLING MACHINE ADJUSTER Rule Out COVID-19 08/30/2020 08/30/2020 08/30/2020 5:05 PM CARTRIDGE ASSEMBLING MACHINE ADJUSTER Rule Out COVID-19 09/24/2020 09/24/2020 09/24/2020 9:24 AM CDT Rule Out COVID-19 11/05/2020 11/05/2020 11/06/2020 1:09 PM CDT Rule Out COVID-19 05/11/2021 05/11/2021 05/13/2021 10:18 AM CDT Rule Out COVID-19 07/13/2021 07/13/2021 07/14/2021 3:04 PM CARTRIDGE ASSEMBLING MACHINE ADJUSTER Rule Out COVID-19 07/18/2021 07/18/2021 07/20/2021 1:56 PM CARTRIDGE ASSEMBLING MACHINE ADJUSTER COVID-19 07/18/2021 07/18/2021 08/08/2021 11:3 9 PM CARTRIDGE ASSEMBLING MACHINE ADJUSTER Rule Out COVID-19 12/18/2021 12/18/2021 12/19/2021 11:34 AM CDT Rule Out COVID-19 02/24/2022 02/24/2022 02/25/2022 1:08 PM CDT Rule Out COVID-19 04/26/2022 04/26/2022 04/26/2022 6:47 AM CDT Rule Out COVID-19 05/17/2022 05/17/2022 05/17/2022 10:20 PM CARTRIDGE ASSEMBLING MACHINE ADJUSTER Rule Out COVID-19 06/09/2022 06/09/2022 06/09/2022 9:35 AM CARTRIDGE ASSEMBLING MACHINE ADJUSTER COVID-19 06/09/2022 06/09/2022 06/30/2022 11:4 1 PM CARTRIDGE ASSEMBLING MACHINE ADJUSTER Rule Out COVID-19 11/10/2022 11/10/2022 11/11/2022 [...] Total Score: 6 08/28/19 21 7:05 AM CARTRIDGE ASSEMBLING MACHINE ADJUSTER documented as of this encounter Care Teams On Site Property Manager Relationship Specialty Start Date End Date Marija Edgar APRN CNP [address] [place] [address] PCP - General Nurse Practitioner 04/30/20 04/14/23 Esha Grimm PA-C [address] [place] [phone] PCP - General Family Medicine 05/04/23 Lita Oseguera Personal Advocate & Liaison (PAL) 02/28/20 03/27/23 Rakesh Cid PA-C [address] [place] [address] Assigned PCP 03/02/20 06/07/20 Chanelle Mccann APRN CNAdam [address] [place] [address] 200 [place] [address] Assigned OBGYN Provider 05/02/2005/09 eLsley Guillermo, CHW Community Health Worker 05/30/2005/12 Kyara De La Fuente, RN Specialty Salad Maker Neurology 06/04/20 03/05/21 Marija Edgar APRN ANTI TANK MISSILEMAN [address] [facility] [place] [address] Assigned PCP 06/08/20 04/29/23 Mynor Broussard MD [address] [facility] 500 [place], [place] 362765 Assigned Surgical Provider 06/01/20 11/28/21 Keisha Dotson MD [address]09 [employer], [place] 908155 Assigned Neuroscience Provider 06/04/20 04/01/23 Mary Mejia Financial Resource Worker 08/07/20 08/21/20 Stacey Briones, DIRECT SUPPORT PROFESSIONAL Lead Salad Maker Primary Care - CC 08/11/2012/30 Lesley Guillermo, CHW Community Health Worker 08/11/2010/01 Mary Mejia Financial Resource Worker 09/02/20 10/06/20 Lita Oseguera Personal Advocate & Liaison (PAL) Family Medicine 09/10/20 09/21/20 Galo Burrell MD Assigned Heart and Vascular Provider 10/05/20 04/02/22 Cristina Wood Financial Resource Worker 10/07/20 10/14/20 Lesley Guillermo, [facility] Community Health Worker 10/23/2012/30 Meredith Bedoya Financial Resource Worker 10/23/20 11/23/20 Cristina Wood Financial Resource Worker 02/09/21 02/09/21 Diana Desir, [facility] 30[address] [place] [address] Pharmacist Pharmacist 04/17/21 Rain Galaviz PA-C [address] [place] [address] [address] [place], [place] [phone] Physician Medical Support Specialist Dermatology 04/28/21 Summer Lara MD [address] [place] [address] [phone] Assigned OBGYN Provider 05/10/2105/23 Summer Lara MD [address] [place] [address] 859074 Assigned OBGYN Provider 05/31/21 Summer Lara MD [address] [place] [address] 745884 Assigned OBGYN Provider 05/24/2105/30 Tavia Wyatt MD [address] [place] [address], [place] [address] Dermatology 07/14/21 Johnny Murillo MD [address] [place] [address] Assigned Musculoskeletal Provider 08/30/21 03/17/22 Erica Farrell APRN ANTI TANK MISSILEMAN [address] [facility] [address] [place] [address] Nurse Practitioner Cardiovascular Disease 09/09/21 Teresita Bean, [facility] [address] [facility] [address] [place], [place] [phone] Pharmacist Pharmacist 09/24/21 09/29/21 Tavia Wyatt MD [address] [place] [address] Assigned Surgical Provider 11/29/21 05/07/22 [facility] 3033 [place] [address] Assigned MTM Pharmacist 01/02/22 Rich Barrett MD 3033 [place] [address] Physician Ophthalmology 01/21/22 Neil Kent MD 500 [place] [address] Dermatology 02/24/22 Roney Story DPM [address] [facility] 300 [place] [address] Assigned Musculoskeletal Provider 03/20/22 08/13/22 Erica Farrell APRN ANTI TANK MISSILEMAN 1700 [place] [address] Assigned Heart and Vascular Provider 04/03/22 04/16/22 [facility] 3033 [place] [address] Assigned MTM Pharmacist 04/07/22 Jelena David OD [address] [place] [address] Assigned Surgical Provider 05/08/22 10/08/22 Galo Burrell MD Assigned Heart and Vascular Provider 04/17/22 06/11/22 Livan Sharif MD [address] [place] [address] Cardiovascular Disease 05/14/22 Livan Sharif MD [address] [place] [address] Assigned Heart and Vascular Provider 06/12/22 07/23/22 Catherine Cm MD [address] [place] 092385 Cardiovascular Disease 07/21/22 Valery Veronica, PAUcheC 909 [place], [place] 376595 Physician Medical Support Specialist Dermatology 07/21/22 Catherine Cm MD [address] [place] [address] [place] [address] Assigned Heart and Vascular Provider 07/24/22 11/05/22 Johnny Murillo MD [address] [place] [address] 707314 Assigned Musculoskeletal Provider 08/14/22 10/08/22 Brea Quinn APRN ANTI TANK MISSILEMAN [address] [place] [address] 933135 Nurse Practitioner Dermatology 09/21/22 Brea Quinn APRN ANTI TANK MISSILEMAN [address] [place] [address] [place] [address] Assigned Surgical Provider 10/09/22 05/01/24 [place] [address] [place] [address] Assigned Musculoskeletal Provider 10/09/22 05/01/24 Livan Sharif MD [address] [place] [address] [place] [address] Assigned Heart and Vascular Provider 11/06/22 11/12/22 Catherine Cm MD [address] [place] [address] [place] [address] Assigned Heart and Vascular Provider 11/13/22 05/27/23 Sydnie Martinez RN Personal Advocate & Liaison (PAL) Family Medicine 03/28/23 07/31/23 Alfonso Renteria MD [address] [facility] [address] 200 [place] [address] Assigned Neuroscience Provider 04/02/23 09/29/24 Cheng Todd PA-C [address] [place] [address] [phone] Assigned PCP 04/30/23 07/15/23 Radha Lomeli, GEOSPATIAL IMAGE ANALYST ANTI TANK MISSILEMAN [address] [facility] [address] [place], [place] 887355 Assigned Heart and Vascular Provider 05/28/23 11/29/24 Jelena David OD [address] [place] [address] Ophthalmology 06/15/23 Pao Joseph, RN Personal Advocate & Liaison (PAL) Nurse 08/01/23 11/07/23 Esha Grimm PA-C [address] [place] [phone] Assigned PCP 07/16/23 Valery Veronica PA-C [address] [place] [address] Physician Medical Support Specialist Dermatology 09/19/23 Rey Tay MD [address] [place] [address] 928555 Gastroenterology 09/20/23 Rocky Zepeda DO [address] [place] [address] 806055 Physician Gastroenterology 09/20/23 Philip Dumont MD 516 [place] [address] Physician Ophthalmology 09/22/23 Meredith Carrera PA-C [address] [place] [address] 861515 Assigned Gastroenterology Provider 11/01/23 Neil Kent MD [address] 177620 MD Dermatology 11/02/23 [place] [address] [place], [place] 649667 Neurological Surgery 12/26/23 Audrey Waite PA-C [address] [place] [address] 251415 Physician Medical Support Specialist Dermatology 02/28/24 Valery Veronica PA-C [address] [place] [address] Physician Medical Support Specialist Dermatology 04/10/24 Herminia Hatch MD 1875 [place], [place] [phone] Assigned Rheumatology Provider 07/02/24 Jelena David OD [address] [place] [address] Ophthalmology 08/30/24 [place] [address] [place] [address] Assigned Neuroscience Provider 09/30/24 Maru Man PA-C [address] [place] [address] Physician Medical Support Specialist Dermatology 10/03/24 Maru Man PA-C [address] [place] [address] Physician Medical Support Specialist Dermatology 10/22/24 Jelena David OD [address] [facility] [place] [address] Assigned Surgical Provider 10/31/24 Fabiano Correa, SENIOR C SOFTWARE ENGINEER [address] [place] [address] Assigned Heart and Vascular Provider 11/30/24 documented as of this encounter
--- OUTSIDE RECORDS SUMMARY | 2024-12-17 21:40 | XMS_ITS | Encounter Summary ---
Author Organization [facility] Address [address] [place] [address] Care Team Providers Care Director Game Name Role Phone Diana Desir [facility] Unavailable [phone] Rain Galaviz PA-C Unavailable [phone] Tavia Wyatt MD Unavailable [phone] Erica Farrell APRN EMS INSTRUCTOR Unavailable Rich Barrett MD Unavailable [phone] Neil Kent MD Unavailable Diana Desir [facility] Unavailable Livan Sharif MD Unavailable Catherine Cm MD Unavailable + Valery Veronica PA-C Unavailable Brea Quinn WEB MARKETING STRATEGIST EMS INSTRUCTOR Unavailable Brea Quinn WEB MARKETING STRATEGIST EMS INSTRUCTOR Unavailable Jose Francisco Johnson MD Unavailable Alfonso Renteria MD Unavailable [phone] Esha Grimm PA-C Primary Care Provider Radha Lomeli APRN EMS INSTRUCTOR Unavailable Jelena David OD Unavailable [phone] Pao Joseph RN Unavailable Unavailable [facility] PA-C Unavailable [phone] Valery Veronica PA-C Unavailable Rey Tay [...] PA-C Unavailable Jelena David OD Unavailable [phone] Fabiano Correa NP Unavailable Encounter Details Date Type Department Care Team (Late st Contact Info) Description 10/25/2023 [facility] [address] [phone] [place], RD [address]09 [place] [address] Social History Tobacco Use Types [...] do you attend [facility] health system or latter day services? 1 to 4 [...] 10/25/2023 [facility]ational Stress Questionnaire [...] exercise at this level? 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 [address] [phone] Neil Kent MD [address] [place] [address] 987735 04/16/2025 11:00 AM CDT Virtual Visit [facility] [place] [address] [place] [address] 4th [place] [phone] Meredith Carrera PA-C [address] [place] [address] 263635 documented as of this encounter Visit Diagnoses [...] Score: 4 06/20/20 23 8:40 AM CLINICAL INFORMATION SYSTEMS DIRECTOR documented as of this encounter Care Teams Director Game Relationship Specialty Start Date End Date Esha Grimm PA-C [address] [place] [phone] PCP - General Family Medicine 05/04/23 Diana Desir, [facility] [address] [place] [address] Pharmacist Pharmacist 04/17/21 Rain Galaviz PA-C [address] [place] [address] [address] [place] [address] Physician School Guidance Counselor Dermatology 04/28/21 Tavia Wyatt MD [address] [place] [address] [place] [address] Dermatology 07/14/21 Erica Farrell APRN EMS INSTRUCTOR [address] [place] [address] Nurse Practitioner Cardiovascular Disease 09/09/21 Rich Barrett MD [address] [place] [address] Physician Ophthalmology 01/21/22 Neil Kent MD 500 [place], [place] 839265 Dermatology 02/24/22 Diana Desir, [facility] [address] [place] [address] Assigned MTM Pharmacist 04/07/22 Livan Sharif MD [address] [facility] [address] [place] 268065 Cardiovascular Disease 05/14/22 Catherine Cm MD [address] [place] 8030300 [place] [address] Cardiovascular Disease 07/21/22 Valery Veronica, PA-C 909 [place], [place] 243815 Physician School Guidance Counselor Dermatology 07/21/22 Brea Quinn APRN EMS INSTRUCTOR 500 [place], [place] 453995 Nurse Practitioner Dermatology 09/21/22 Brea Quinn APRN EMS INSTRUCTOR 6401 [facility] [place] 826112 Assigned Surgical Provider 10/09/22 05/01/24 [place] [address] [facility] 300 [place] [address] Assigned Musculoskeletal Provider 10/09/22 05/01/24 Alfonso Renteria MD 5775 [facility] 200 [place], [place] 690336 Assigned Neuroscience Provider 04/02/23 09/29/24 Radha Lomeli APRN EMS INSTRUCTOR [address] [place] [phone] [place] [address] Assigned Heart and Vascular Provider 05/28/23 11/29/[address] [facility] [place] [address] MD Ophthalmology 06/15/23 Pao Joseph, RN Personal Advocate & Liaison (PAL) Nurse 08/01/23 11/07/23 Esha Grimm PA-C [address] [place] [phone] Assigned PCP 07/16/23 Valery Veronica PA-C [address] [place] [address] Physician School Guidance Counselor Dermatology 09/19/23 Rey Tay MD [address] [place] [address] MD Gastroenterology 09/20/23 Rocky Zepeda DO [address] [place] [address] 448025 Physician Gastroenterology 09/20/23 Philip Dumont MD [address] [place] [address] 554015 Physician Ophthalmology 09/22/23 Meredith Carrera PA-C [address] [place] [address] 960155 Assigned Gastroenterology Provider 11/01/23 Neil Kent MD [address] 264270 Dermatology 11/02/23 [place] [address] [facility] [place] [address] Neurological Surgery 12/26/23 Audrey Waite PA-C 500 [place] [address] Physician School Guidance Counselor Dermatology 02/28/24 Valery Veronica PA-C 331845 [place] [address] Physician School Guidance Counselor Dermatology 04/10/24 Herminia Hatch MD [address] [place] [address] [phone] Assigned Rheumatology Provider 07/02/24 Jelena David OD [address] [place] [address] [place] [address] Ophthalmology 08/30/24 [place] [address] [place] [address] Assigned Neuroscience Provider 09/30/24 Maru Man PA-C [address] [place] [address] Physician School Guidance Counselor Dermatology 10/03/24 Maru Man PA-C [address] [place] [address] Physician School Guidance Counselor Dermatology 10/22/24 Jelena David OD [address] [place] [address] [place] [address] Assigned Surgical Provider 10/31/24 Fabiano Correa NP [address] [place] [address] Assigned Heart and Vascular Provider 11/30/24 documented as of this encounter
--- OUTSIDE RECORDS SUMMARY | 2024-12-17 21:40 | XMS_ITS | Encounter Summary ---
Author Organization [place] Address [address] [place] [address] 14031 Care Team Providers Care Trolley Car Overhauler Name Role Phone Diana Desir [facility] Unavailable Rain Galaviz PA-C Unavailable Tavia Wyatt MD Unavailable [phone] Erica Farrell APRN KIND[place] PARAPROFESSIONAL Unavailable Rich Barrett MD Unavailable [phone] Neil Kent MD Unavailable Diana Desir [facility] Unavailable Livan Sharif MD Unavailable Catherine Cm MD Unavailable + Valery Veronica PA-C Unavailable Brea Quinn HOUSING OFFICER [place]ER[place] PARAPROFESSIONAL Unavailable Brea Quinn HOUSING OFFICER [place] PARAPROFESSIONAL Unavailable Jose Francisco Johnson MD Unavailable Alfonso Renteria MD Unavailable [phone] Esha Grimm PA-C Primary Care Provider [phone] Radha Lomeli APRN KINDERGARTEN PARAPROFESSIONAL Unavailable Jelena David OD Unavailable Pao Joseph RN Unavailable Unavailable AlfaJesusEsha M PA-C Unavailable [phone] Valery Veronica PA-C Unavailable Rey Tay MD Unavailable Rocky Zepeda DO Unavailable Philip Dumont MD Unavailable Meredith Carrera PA-C Unavailable Neil Kent MD Unavailable Juan Pablo Emmanuel MD Unavailable Audrey Waite PA-C Unavailable [phone] Valery Veronica PA-C Unavailable [phone] Herminia Hatch MD Unavailable Jelena David OD Unavailable [phone] Juan Pablo Emmanuel MD Unavailable Maru Man PA-C Unavailable Maru Man PA-C Unavailable Jelena David OD Unavailable Fabiano Correa NP Unavailable [phone] Encounter Details Date Type Department Care Team (Late st Contact Info) Description 10/25/2023 [facility] Medical Advice [facility] [address] [place] [address] Wesley [place] Social History Tobacco [...] 10/25/2023 [facility] - Occupational Stress Questionnaire [...] exercise at this level? 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 MASTER LOCKSMITH Gender Identity Female 03/02/2021 5:45 PM CDT Sexual Orientation Straight 02/28/2020 12 :51 AM CDT documented as of this encounter Plan of Treatment Upcoming Encounters Date Type Department Care Team (Late st Contact Info) Description 12/19/2024 2:00 PM CDT Office Visit [facility] [id number] [place] [phone] Lauren Claudio PA-C [id number] [place] [address] 12/26/2024 7:30 AM CDT Office Visit [facility] [address] [phone] Neil Kent MD 500 [place] [address] 04/16/2025 11:00 AM CDT Virtual Visit [facility] [place] [address] [place] [address] 4th [place] [phone] Meredith Carrera PA-C [address] [place] [address] 223085 documented as of this encounter Visit Diagnoses [...] Total Score: 4 06/20/20 23 8:40 AM CERTIFIED MASTER LOCKSMITH documented as of this encounter Care Teams Trolley Car Overhauler Relationship Specialty Start Date End Date Esha Grimm PA-C [address] [place] [phone] PCP - General Family Medicine 05/04/23 Diana Desir, [facility] [address] [place] [address] 97893 Pharmacist Pharmacist 04/17/21 Rain Galaviz PA-C [address] [place] [address] [address] [place] [address] Physician Manager Testing Dermatology 04/28/21 Tavia Wyatt MD [address] [place] [address] [address] [place] [address] Dermatology 07/14/21 Erica Farrell APRN KINDERGARTEN PARAPROFESSIONAL [address] [place] 8[address] Nurse Practitioner Cardiovascular Disease 09/09/21 Rich Barrett MD [address] [place] 448[address] Physician Ophthalmology 01/21/22 Neil Kent MD 500 [place] [address] Dermatology 02/24/22 [facility] [address] [place] [address] Assigned MTM Pharmacist 04/07/22 Livan Sharif MD [address] [place] [address] Cardiovascular Disease 05/14/22 Catherine Cm MD [address] [place] [address] Cardiovascular Disease 07/21/22 Valery Veronica PA-C 909 [place] [address] Physician Manager Testing Dermatology 07/21/22 Brea Quinn APRN KINDERGARTEN PARAPROFESSIONAL 500 [place] [address] Nurse Practitioner Dermatology 09/21/22 Brea Quinn APRN KINDERGARTEN PARAPROFESSIONAL 6401 [place] [address] Assigned Surgical Provider 10/09/22 05/01/24 [place] [address] [facility] 300 [place] [address] Assigned Musculoskeletal Provider 10/09/22 05/01/24 Alfonso Renteria MD 5775 [facility] 200 [place] [address] Assigned Neuroscience Provider 04/02/23 09/29/24 Radha Lomeli APRN KINDERGARTEN PARAPROFESSIONAL 6405 [facility] [address] [place] [address] Assigned Heart and Vascular Provider 05/28/23 11/29/24 Jelena David OD 3305 [facility] [place] [address] Ophthalmology 06/15/23 Pao Joseph, VJ Personal Advocate & Liaison (PAL) Nurse 1/22/24 4/29/24 Esha Grimm PA-C [address] [place] [phone] Assigned PCP 07/16/23 Valery Veronica PA-C [address] [place] [address] 890535 Physician Manager Testing Dermatology 09/19/23 Rey Tay MD [address] [place] [address] 389695 MD Gastroenterology 09/20/23 Rocky Zepeda DO [address] [place] [address] 274245 Physician Gastroenterology 09/20/23 Philip Dumont MD [address] [place] [address] 556925 Physician Ophthalmology 09/22/23 Meredith Carrera PA-C [address] [place] [address] 889215 Assigned Gastroenterology Provider 11/01/23 Neil Kent MD [address] [place] [address] Dermatology 11/02/23 [place] [address] [place] [address] Neurological Surgery 12/26/23 Audrey Waite PA-C 500 [place] [address] Physician Manager Testing Dermatology 02/28/24 Valery Veronica PA-C [id number] [place] [address] Physician Manager Testing Dermatology 04/10/24 Herminia Hatch MD [address] [place] [address] Assigned Rheumatology Provider 07/02/24 Jelena David OD [address] [place] [address] [place] [address] Ophthalmology 08/30/24 [place] [address] [place] [address] Assigned Neuroscience Provider 09/30/24 Maru Man PA-C [address] [place] [address] Physician Manager Testing Dermatology 10/03/24 Maru Man PA-C [address] [place] [address] 7[address] Physician Manager Testing Dermatology 10/22/24 Jelena David OD [address] [place] [address] [place] [address] Assigned Surgical Provider 10/31/24 Fabiano Correa NP [address] [place] [address] Assigned Heart and Vascular Provider 11/30/24 documented as of this encounter
--- OUTSIDE RECORDS SUMMARY | 2024-12-17 21:40 | XMS_ITS | Encounter Summary ---
Author Organization [place] Address [address] [place] [address] Care Team Providers Care Hand Glass Cutter Name Role Phone Diana Desir [facility] Unavailable Rain Galaviz PA-C Unavailable Tavia Wyatt MD Unavailable [phone] Erica Farrell APRN BACK HOE MACHINE OPERATOR Unavailable Rich Barrett MD Unavailable [phone] Neil Kent MD Unavailable Diana Desir [facility] Unavailable [phone] Livan Sharif MD Unavailable Catherine Cm MD Unavailable + Valery Veronica PA-C Unavailable Brea Quinn STAFF PHYSICAL THERAPIST BACK HOE MACHINE OPERATOR Unavailable Brea Quinn STAFF PHYSICAL THERAPIST BACK HOE MACHINE OPERATOR Unavailable Jose Francisco Johnson MD Unavailable Alfonso Renteria MD Unavailable [phone] Esha Grimm PA-C Primary Care Provider [phone] Radha Lomeli APRN BACK HOE MACHINE OPERATOR Unavailable Jelena David OD Unavailable Pao Joseph RN Unavailable Unavailable AlfaJesusEsha M PA-C Unavailable Valery Veronica PA-C Unavailable Rey Tay MD Unavailable Rocky Zepeda DO Unavailable Philip Dumont MD Unavailable Meredith Carrera PA-C Unavailable Neil Kent MD Unavailable Juan Pablo Emmanuel MD Unavailable Audrey Waite PA-C Unavailable [phone] Valery Veronica PA-C Unavailable Herminia Hatch MD Unavailable Jelena David OD Unavailable [phone] Juan Pablo Emmanuel MD Unavailable Maru Man PA-C Unavailable Maru Man PA-C Unavailable Jelena David OD Unavailable [phone] Fabiano Correa NP Unavailable [phone] Encounter Details Date Type Department Care Team (Late st Contact Info) Description 10/24/2023 [facility] Medical Advice [facility] [address] [place] [address] Kenneth Denson Social History Tobacco [...] Answer Date Recorded PHQ-2 Score 0 10/25/2023 [facility] [place] [facility] ional [facility] - Occupational [...] exercise at this level? 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 [address] [place] [phone] Lauren Claudio PA-C [id number] [place] [address] 12/26/2024 7:30 AM CDT Office Visit [facility] [address] [place] [address] [phone] Neil Kent MD 500 [place] [address] 04/16/2025 11:00 AM CDT Virtual Visit [facility] [place] [address] [place] [address] 4th [place] [phone] Meredith Carrera PA-C [address] [place] [address] 613925 documented as of this encounter Visit Diagnoses [...] Total Score: 4 06/20/20 23 8:40 AM SAVE ALL OPERATOR documented as of this encounter Care Teams Hand Glass Cutter Relationship Specialty Start Date End Date Esha Grimm PA-C [address] [place] [phone] PCP - General Family Medicine 05/04/23 Diana Desir, [facility] [address] [place] [address] Pharmacist Pharmacist 04/17/21 Rain Galaviz PA-C [address] [place] [address] [address] [place] [address] Physician Manager Architectural Dermatology 04/28/21 Tavia Wyatt MD [address] [place] [address] [address] [place] [place] [address] Dermatology 07/14/21 Erica Farrell APRN BACK HOE MACHINE OPERATOR [address] [place] 74[address] Nurse Practitioner Cardiovascular Disease 09/09/21 Rich Barrett MD [address] [place] [address]65 Physician Ophthalmology 01/21/22 Neil Kent MD 500 [place] [address] Dermatology 02/24/22 [facility] 3033 [place] [address] Assigned MTM Pharmacist 04/07/22 Livan Sharif MD [address] [place] [address] Cardiovascular Disease 05/14/22 Catherine mC MD [address] [place] [address] Cardiovascular Disease 07/21/22 Valery Veronica PA-C 909 [place] [address] Physician Manager Architectural Dermatology 07/21/22 Brea Quinn APRN BACK HOE MACHINE OPERATOR 500 [place] [address] Nurse Practitioner Dermatology 09/21/22 Brea Quinn APRN BACK HOE MACHINE OPERATOR 6401 [place] [address] Assigned Surgical Provider 10/09/22 05/01/24 [place] [address] [facility] 300 [place] [address] Assigned Musculoskeletal Provider 10/09/22 05/01/24 Alfonso Renteria MD 5775 [facility] 200 [place], [place] 432716 Assigned Neuroscience Provider 04/02/23 09/29/24 Radha Lomeli APRN BACK HOE MACHINE OPERATOR 6405 [facility] [address] [place] [address] Assigned Heart and Vascular Provider 05/28/23 11/29/24 Jelena David OD [address] [facility] [place] [address] Ophthalmology 06/15/23 Pao Joseph, RN Personal Advocate & Liaison (PAL) Nurse 08/01/23 11/07/23 Esha Grimm PA-C [address] [place] [phone] Assigned PCP 07/16/23 Valery Veronica PA-C [address] [place] [address] 697535 Physician Manager Architectural Dermatology 09/19/23 Rey Tay MD [address] [place] [address] 967635 MD Gastroenterology 09/20/23 Rocky Zepeda DO [address] [place] [address] 039215 Physician Gastroenterology 09/20/23 Philip Dumont MD [address] [place] [address] 978465 Physician Ophthalmology 09/22/23 Meredith Carrera PA-C [address] [place] [address] 635275 Assigned Gastroenterology Provider 11/01/23 Neil Kent MD [address] [place] [address] Dermatology 11/02/23 [place] [address] [place] [address] Neurological Surgery 12/26/23 Audrey [place] PA-C 500 [place] [address] Physician Manager Architectural Dermatology 02/28/24 Valery Veronica PA-C [address] [place] [address] Physician Manager Architectural Dermatology 04/10/24 Herminia Hatch MD [address] [place] [address] Assigned Rheumatology Provider 07/02/24 Jelena David OD [address] [place] [address] [place] [address] Ophthalmology 08/30/24 [place] [address] [place] [address] Assigned Neuroscience Provider 09/30/24 Maru Man PA-C [address] [place] [address] Physician Manager Architectural Dermatology 10/03/24 Maru Man PA-C [address] [place] [address] Physician Manager Architectural Dermatology 10/22/24 Jelena David OD [address] [place] [address] [place] [address] Assigned Surgical Provider 10/31/24 Fabiano Correa MANAGER CASE [address] [place] [address] Assigned Heart and Vascular Provider 11/30/24 documented as of this encounter
--- OUTSIDE RECORDS SUMMARY | 2024-12-17 21:40 | XMS_ITS | Encounter Summary ---
Author Organization [place] Address [address] [place] [address] Care Team Providers Care Steam Drier Operator Name Role Phone Diana Desir [facility] Unavailable Rain Galaviz PA-C Unavailable Taiva Wyatt MD Unavailable [phone] Erica Farrell APRN SCOOPING MACHINE TENDER Unavailable Rich Barrett MD Unavailable [phone] Neil Kent MD Unavailable Diana Desir [facility] Unavailable Livan Sharif MD Unavailable Catherine Cm MD Unavailable + Valery Veronica PA-C Unavailable Brea Quinn CATH LAB TECHNOLOGIST SCOOPING MACHINE TENDER Unavailable Brea Quinn CATH LAB TECHNOLOGIST SCOOPING MACHINE TENDER Unavailable Jose Francisco Johnson MD Unavailable Alfonso Renteria MD Unavailable [phone] Esha Grimm PA-C Primary Care Provider Radha Lomeli APRN SCOOPING MACHINE TENDER Unavailable Jelena David OD Unavailable [phone] Pao Joseph RN Unavailable Unavailable AlfaJesusEsha M PA-C Unavailable [phone] Valery Veronica PA-C Unavailable Rey Tay MD Unavailable Rocky Zepeda DO Unavailable Philip Dumont MD Unavailable Meredith Carrera PA-C Unavailable Neil Kent MD Unavailable Juan Pablo Emmanuel MD Unavailable Audrey Waite PA-C Unavailable [phone] Valery Veronica PA-C Unavailable Herminia Hatch MD Unavailable Jelena David OD Unavailable Juan Pablo Emmanuel MD Unavailable [phone] Maru Man PA-C Unavailable Maru Man PA-C Unavailable Jelena David OD Unavailable Fabiano Correa NP Unavailable [phone] Encounter Details Date Type Department Care Team (Late st Contact Info) Description 10/26/2023 [facility] [address] [place] [address] Wesley Powell Social History Tobacco [...] Score 0 10/25/2023 [facility] - Occupational Stress Questionnaire [...] at this level? 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 Gender Identity Female 03/02/2021 5:45 PM CDT Sexual Orientation Straight 02/28/2020 12 :51 AM CDT documented as of this encounter Plan of Treatment Upcoming Encounters Date Type Department Care Team (Late st Contact Info) Description 12/19/2024 2:00 PM CDT Office Visit [facility] [address] [place] [phone] Lauren Claudio PA-C [address] [place] [address] 12/26/2024 7:30 AM CDT Office Visit [facility] [address] [phone] Neil Kent MD 500 [place] [address] 04/16/2025 11:00 AM CDT Virtual Visit [facility] [place] [address] [place] [address] 4th [place] [phone] Meredith Carrera PA-C [address] [place] [address] 553825 documented as of this encounter Visit Diagnoses [...] Total Score: 4 06/20/20 23 8:40 AM FARMWORKER GENERAL documented as of this encounter Care Teams Steam Drier Operator Relationship Specialty Start Date End Date Esha Grimm PA-C [address] [place] [phone] PCP - General Family Medicine 05/04/23 Diana Desir, [facility] [address] [place] [address] Pharmacist Pharmacist 04/17/21 Rain Galaviz PA-C [address] [place] [address] [address] [place] [address] Physician Speedboat Operator Dermatology 04/28/21 Tavia Wyatt MD [address] [place] [address] [address] [place] [address] Dermatology 07/14/21 Erica Farrell APRN SCOOPING MACHINE TENDER [address] [place] [address] Nurse Practitioner Cardiovascular Disease 09/09/21 Rich Barrett MD [address] [place] [address] Physician Ophthalmology 01/21/22 Neil Kent MD 500 [place] [address] Dermatology 02/24/22 [facility] [address] [place] [address] Assigned MTM Pharmacist 04/07/22 Livan Sharif MD [address] [place] [address] Cardiovascular Disease 05/14/22 Catherine Cm MD [address] [place] [address] Cardiovascular Disease 07/21/22 Valery Veronica PA-C 909 [place] [address] Physician Speedboat Operator Dermatology 07/21/22 Brea Quinn APRN SCOOPING MACHINE TENDER 500 [place] [address] Nurse Practitioner Dermatology 09/21/22 Brea Quinn APRN SCOOPING MACHINE TENDER 6401 [place] [address] Assigned Surgical Provider 10/09/22 05/01/24 [place] [address] [address] [facility] 300 [place] [address] Assigned Musculoskeletal Provider 10/09/22 05/01/24 Alfonso Renteria MD 5775 [facility] 200 [place] [address] Assigned Neuroscience Provider 04/02/23 09/29/24 Radha Lomeli APRN SCOOPING MACHINE TENDER 6405 [facility] [address] [place] [address] Assigned Heart and Vascular Provider 05/28/23 11/29/24 Jelena David OD [address] [place] [address] Ophthalmology 06/15/23 Pao Joseph, VJ Personal Advocate & Liaison (PAL) Nurse 1/22/24 4/29/24 Esha Grimm PA-C [address] [place] [phone] Assigned PCP 07/16/23 Valery Veronica PA-C [address] [place] [address] 819615 Physician Speedboat Operator Dermatology 09/19/23 Rey Tay MD [address] [place] [address] 886995 MD Gastroenterology 09/20/23 Rocky Zepeda DO [address] [place] [address] 819445 Physician Gastroenterology 09/20/23 Philip Dumont MD [address] [place] [address] 701195 Physician Ophthalmology 09/22/23 Meredith Carrera PA-C [address] [place] [address] 808935 Assigned Gastroenterology Provider 11/01/23 Neil Kent MD [address] [place] [address] Dermatology 11/02/23 [place] [address] [place] [address] Neurological Surgery 12/26/23 Audrey Waite PA-C 500 [place] [address] Physician Speedboat Operator Dermatology 02/28/24 Valery Veronica PA-C [address] [place] [address] Physician Speedboat Operator Dermatology 04/10/24 Herminia Hatch MD [address] [place] [address] Assigned Rheumatology Provider 07/02/24 Jelena David OD [address] [place] [address] [place] [address] Ophthalmology 08/30/24 [place] [address] [place] [address] Assigned Neuroscience Provider 09/30/24 Maru Man PA-C [address] [place] [address] Physician Speedboat Operator Dermatology 10/03/24 Maru Man PA-C [address] [place] [address] Physician Speedboat Operator Dermatology 10/22/24 Jelena David OD [address] [place] [address] [place] [address] Assigned Surgical Provider 10/31/24 Fabiano [place] NP [address] [place] [address] Assigned Heart and Vascular Provider 11/30/24 documented as of this encounter
--- OUTSIDE RECORDS SUMMARY | 2024-12-17 21:40 | XMS_ITS | Encounter Summary ---
Author Organization [place] Address [address] [place] [address] 138[address] Care Team Providers Care Piece Jobber Name Role Phone Lita Oseguera Unavailable Unavailable Marija Edgar APRN BATCH ATTENDANT Primary Care Provider + Chanelle Mccann APRN CNM Unavailab le Kyara De La Fuente RN Unavailable [phone] Marija Edgar APRN BATCH ATTENDANT Unavailable [phone] Mynor Broussard MD Unavailable [phone] Keisha Dotson MD Unavailable Mary Mejia Unavailable Unavailable Stacey Briones CANDLES POURER Unavailable Lesley Guillermo CHW Unavailable Mary Mejia Unavailable Unavailable Lita Oseguera Unavailable Unavailable Galo Burrell MD Unavailable Unavailable Cristina Wood Unavailable Lesley Guillermo CHW Unavailable Meredith Bedoya Unavailable Unavailable Cristina Wood Unavailable Diana Desir [facility] Unavailable [phone] Ruhland, Rain Lena PA-C Unavailable Summer Lara MD Unavailable [phone] Summer Lara MD Unavailable [phone] Summer Lara MD Unavailable [phone] Tavia Wyatt MD Unavailable [phone] Johnny Murillo MD Unavailable [phone] Erica Farrell APRN BATCH ATTENDANT Unavailable VikasTeresita H Unavailable Tavia Wyatt MD Unavailable [phone] Diana Desir [facility] Unavailable [phone] Rich Barrett MD Unavailable [phone] Neil Kent MD Unavailable Roney Story [facility] Unavailable Erica Farrell APRN BATCH ATTENDANT Unavailable Diana Desir [facility] Unavailable [phone] Jelena David OD Unavailable Galo Burrell MD Unavailable Unavailable Livan Sharif MD Unavailable Livan Sharif MD Unavailable Catherine Cm MD Unavailable + Valery Veronica PA-C Unavailable [phone] Catherine Cm MD Unavailable + Johnny Murlilo MD Unavailable [phone] Brea Quinn APRN BATCH ATTENDANT Unavailable [phone] Brea Quinn WASTE COTTON CLEANER BATCH ATTENDANT Unavailable [phone] Jose Francisco Johnson MD Unavailable Livan Sharif MD Unavailable Catherine Cm MD Unavailable + Sydnie Martinez RN Unavailable Unavailable Alfonso Renteria MD Unavailable [phone] Esha Grimm PA-C Primary Care Provider Cheng Todd PA-C Unavailable Radha Lomeli APRN, CNP Unavailable Jelena David OD Unavailable [phone] Pao Joseph RN Unavailable Unavailable Esha Grimm PA-C Unavailable [phone] Valery Veronica PA-C Unavailable Rey Tay MD Unavailable Rocky Zepeda DO Unavailable Philip Dumont MD Unavailable Meredith Carrera PA-C Unavailable [phone] Neil Kent MD Unavailable Juan Pablo Emmanuel MD Unavailable Audrey Waite PA-C Unavailable Valery Veronica PA-C Unavailable Herminia Hatch MD Unavailable Jelena David OD Unavailable Juan Pablo Emmanuel MD Unavailable Maru Man PA-C Unavailable Maru Man PA-C Unavailable Jelena David OD Unavailable Fabiano Correa NP Unavailable Encounter Details Date Type Department Care Team (Latest Contact Info) Description 07/29/2020 MyC Medical Advice [facility] [id number] [place] [address] [phone] Marija Edgar APRN BATCH ATTENDANT [address] [facility] [place] [phone] Palpitations (Primary Dx) Social History Tobacco Use [...] CDT Legal Sex Female 4:13 AM MANAGER INVENTORY Gender Identity Female 03/02/2021 5:45 PM CDT Sexual Orientation Straight 02/28/2020 12 :51 AM CDT COVID-19 Exposure Response Date Recorded In the last month, have you been in contact with someone who was confirmed or suspected to have Coronavirus / COVID-19? No / Unsure 07/30/2020 4:53 PM MANAGER INVENTORY documented as of this encounter Miscellaneous Notes * Telephone Encounter - Marija Edgar APRN CNP - 07/30/2020 10:21 AM MANAGER INVENTORY Responded via MyChart Marija Edgar APRN CNP on 07/30/2020 at 10:28 AM GER INVENTORY documented in this encounter Plan of Treatment Upcoming Encounters Date Type Department Care Team (Late st Contact Info) Description 12/19/2024 2:00 PM CDT Office Visit [address] [phone] Lauren Claudio PA-C [id number] [place] [address] [phone] 12/26/2024 7:30 AM CDT Office Visit [facility] [place] [address] [phone] Neil Kent MD [address] [place] [address] 04/16/2025 11:00 AM CDT Virtual Visit [facility] [address] 4th [place] [phone] Meredith Carrera PA-C [address] [place] [address] documented as of this encounter Visit Diagnoses Diagnosis Palpitations- Primary documented in this encounter Additional Health Concerns Infection Onset Date Last Indicated Resolved Time Rule Out COVID-19 07/30/2020 07/30/2020 07/30/2020 7:11 PM MANAGER INVENTORY Rule Out COVID-19 08/30/2020 08/30/2020 08/30/2020 5:05 PM MANAGER INVENTORY Rule Out COVID-19 09/24/2020 09/24/2020 09/24/2020 9:24 AM CDT Rule Out COVID-19 11/05/2020 11/05/2020 11/06/2020 1:09 PM CDT Rule Out COVID-19 05/11/2021 05/11/2021 05/13/2021 10:18 AM CDT Rule Out COVID-19 07/13/2021 07/13/2021 07/14/2021 3:04 PM MANAGER INVENTORY Rule Out COVID-19 07/18/2021 07/18/2021 07/20/2021 1:56 PM MANAGER INVENTORY COVID-19 07/18/2021 07/18/2021 08/08/2021 11:3 9 PM MANAGER INVENTORY Rule Out COVID-19 12/18/2021 12/18/2021 12/19/2021 11:34 AM CDT Rule Out COVID-19 02/24/2022 02/24/2022 02/25/2022 1:08 PM CDT Rule Out COVID-19 04/26/2022 04/26/2022 04/26/2022 6:47 AM CDT Rule Out COVID-19 05/17/2022 05/17/2022 05/17/2022 10:20 PM MANAGER INVENTORY Rule Out COVID-19 06/09/2022 06/09/2022 06/09/2022 9:35 AM MANAGER INVENTORY COVID-19 06/09/2022 06/09/2022 06/30/2022 11:4 1 PM MANAGER INVENTORY Rule Out COVID-19 11/10/2022 11/10/2022 11/11/2022 12:17 [...] Score: 9 06/25/20 20 7:04 AM MANAGER INVENTORY documented as of this encounter Care Teams Piece Jobber Relationship Specialty Start Date End Date Marija Edgar APRN CNP PCP - General Nurse Practitioner 04/30/20 04/14/23 Esha Grimm PA-C [address] [place] [phone] PCP - General Family Medicine 05/04/23 Lita Oseguera Personal Advocate & Liaison (PAL) 02/28/20 03/27/23 Chanelle Mccann APRN CNM [address]11 [facility] 200 [place], [place] 604347 Assigned OBGYN Provider 05/02/2005/09 Kyara De La Fuente, RN Specialty Capper Machine Operator Neurology 06/04/20 03/05/21 Marija Edgar APRN BATCH ATTENDANT Assigned PCP 06/08/20 04/29/23 Mynor Broussard MD 6363 [facility] 500 [place], [place] 857245 Assigned Surgical Provider 06/01/20 11/28/21 Keisha Dotson MD 9 [place] [address] Assigned Neuroscience Provider 06/04/20 04/01/23 Mary Mejia Financial Resource Worker 08/07/20 08/21/20 Stacey Briones, [facility] Lead Capper Machine Operator Primary Care - CC 08/11/2012/30 [...] Desir, [facility] [address] [place] [address] Pharmacist Pharmacist 04/17/21 Rain Galaviz PA-C [address] [place] [address] [address] [place]A [place], [place] [phone] Physician Drug Room Operator Dermatology 04/28/21 Summer Lara MD [address] [place] [address] 676584 Assigned OBGYN Provider 05/10/2105/23 Summer Lara MD [address] [place] [address] [phone] Assigned OBGYN Provider 05/31/21 2 Summer Lara MD [address] [place] [address] 941554 Assigned OBGYN Provider 05/24/2105/30 Tavia Wyatt MD [address] [place] [address] 419254 Dermatology 07/14/21 Johnny Murillo MD [address] [place] [address] Assigned Musculoskeletal Provider 08/30/21 03/17/22 Erica Farrell APRN BATCH ATTENDANT 6405 [facility] [address] [place] [address] Nurse Practitioner Cardiovascular Disease 09/09/21 [facility] [address] [place] [address] Pharmacist Pharmacist 09/24/21 09/29/21 Tavia Wyatt MD [address] [place] [address] Assigned Surgical Provider 11/29/21 05/07/22 [facility] 3033 [place] [address] Assigned MTM Pharmacist 01/02/22 Rich Barrett MD [facility]3 [place] [address] Physician Ophthalmology 01/21/22 Neil Kent MD 500 [place] [address] Dermatology 02/24/22 Roney Story DPM 235[address] [facility] 300 [place], [place] 672367 Assigned Musculoskeletal Provider 03/20/22 08/13/22 Erica Farrell APRN BATCH ATTENDANT 1700 [place] [address] Assigned Heart and Vascular Provider 04/03/22 04/16/22 Diana Desir, [facility] 3033 [place] [address] Assigned MTM Pharmacist 04/07/22 Jelena David OD [address] [facility] [place] [address] Assigned Surgical Provider 05/08/22 10/08/22 Galo Burrell MD Assigned Heart and Vascular Provider 04/17/22 06/11/22 Livan Sharif MD [address] [place] [address] [place] [address] Cardiovascular Disease 05/14/22 Livan Sharif MD [address] [place] [address] [place] 056155 Assigned Heart and Vascular Provider 06/12/22 07/23/22 Catherine Cm MD [address] [place] 117055 Cardiovascular Disease 07/21/22 Valery Veronica PAUcheC 909 [place], [place] 502535 Physician Drug Room Operator Dermatology 07/21/22 Catherine Cm MD [address] [address] [place] 588525 Assigned Heart and Vascular Provider 07/24/22 11/05/22 Johnny Murillo MD [address] [place], [place] 341[address] [place] [address] Assigned Musculoskeletal Provider 08/14/22 10/08/22 Brea Quinn APRN BATCH ATTENDANT 500 [place], [place] 375005 Nurse Practitioner Dermatology 09/21/22 Brea Quinn APRN BATCH ATTENDANT 64[address] [facility] [place] 635912 Assigned Surgical Provider 10/09/22 05/01/24 [place] [address] [address] Assigned Musculoskeletal Provider 10/09/22 05/01/24 Livan Sharif MD 6405 [facility] [address] [place] [address] Assigned Heart and Vascular Provider 11/06/22 11/12/22 Catherine Cm MD [address] [facility] [address] [place] [address] Assigned Heart and Vascular Provider 11/13/22 05/27/23 Sydnie Martinez RN Personal Advocate & Liaison (PAL) Family Medicine 03/28/23 07/31/23 Alfonso Renteria MD [address] [facility] 200 [place], [place] 650526 Assigned Neuroscience Provider 04/02/23 09/29/24 Cheng Todd PA-C [address] [place] [address] [phone] Assigned PCP 04/30/23 07/15/23 Radha Lomeli APRN BATCH ATTENDANT 6405 [facility] [address] [place] [address] Assigned Heart and Vascular Provider 05/28/23 11/29/24 Jelena David OD [address] [facility] [address] [place] [phone] MD Ophthalmology 06/15/23 Pao Joseph, VJ Personal Advocate & Liaison (PAL) Nurse 08/01/23 11/07/23 Esha Grimm PA-C [address] [place] [phone] Assigned PCP 07/16/23 Valery Veronica PA-C [address] [place] [address] 423125 Physician Drug Room Operator Dermatology 09/19/23 Rey Tay MD [address] [place] [address] 445105 Gastroenterology 09/20/23 Rocky Zepeda DO [address] [place] [address] 939765 Physician Gastroenterology 09/20/23 Philip Dumont MD [address] [place] [address] 898705 Physician Ophthalmology 09/22/23 Meredith Carrera PA-C 9[address] [place], [place] 188265 Assigned Gastroenterology Provider 11/01/23 Neil Kent MD [address] [address] Dermatology 11/02/23 [place] [address] [place], [place] 787607 Neurological Surgery 12/26/23 Audrey Waite PA-C 500 [place], [place] 616175 Physician Drug Room Operator Dermatology 02/28/24 Valery Veronica PA-C 051336 [place], [place] 992909 Physician Drug Room Operator Dermatology 04/10/24 Herminia Hatch MD [facility]5 [place], [place] 10423125 Assigned Rheumatology Provider 07/02/24 Jelena David OD [address] [facility] [place] [address] Ophthalmology 08/30/24 [place] [address] [address] [place] [address] Assigned Neuroscience Provider 09/30/24 Maru Man PA-C [address] [place] [address], [place] [address] Physician Drug Room Operator Dermatology 10/03/24 Maru Man PA-C [address] [place] [address], [place] [address] Physician Drug Room Operator Dermatology 10/22/24 Jelena David OD [address] [facility] [place] [address] Assigned Surgical Provider 10/31/24 Fabiano Correa, BRYCE [address] [place] [address] Assigned Heart and Vascular Provider 11/30/24 documented as of this encounter
--- OUTSIDE RECORDS SUMMARY | 2024-12-17 21:40 | XMS_ITS | Encounter Summary ---
Author Organization [place] Address [address] [place] [address] Care Team Providers Care Note Specialist Name Role Phone Diana Desir [facility] Unavailable Rain Galaviz PA-C Unavailable Tavia Wyatt MD Unavailable [phone] Erica Farrell APRN PUBLICATION DISTRIBUTOR Unavailable Rich Barrett MD Unavailable [phone] Neil Kent MD Unavailable Diana Desir [facility] Unavailable Livan Sharif MD Unavailable Catherine Cm MD Unavailable + Valery Veronica PA-C Unavailable Brea Quinn KITCHEN CLEANER PUBLICATION DISTRIBUTOR Unavailable Brea Quinn KITCHEN CLEANER PUBLICATION DISTRIBUTOR Unavailable Jose Francisco Johnson MD Unavailable Alfonso Renteria MD Unavailable [phone] Esha Grimm PA-C Primary Care Provider [phone] Radha Lomeli APRN PUBLICATION DISTRIBUTOR Unavailable Jelena David OD Unavailable [phone] Esha Grimm PA-C Unavailable [phone] JeremíasValery damon PA-C Unavailable Rey Tay [...] Contact Info) Description 11/16/2023 MyC Medical Advice [address] [phone] Asiya Reddy, RN Social History [...] PHQ-2 Score 0 10/25/2023 [facility] - Occupational [...] CDT Legal Sex Female 4:13 AM AIRCRAFT INSPECTOR Gender Identity Female 03/02/2021 5:45 PM CDT Sexual Orientation Straight 02/28/2020 12 :51 AM CDT documented as of this encounter Plan of Treatment Upcoming Encounters Date Type Department Care Team (Late st Contact Info) Description 12/19/2024 2:00 PM CDT Office Visit [facility] [address] [place] [address] [phone] Lauren Claudio PA-C [address] [address] 12/26/2024 7:30 AM CDT Office Visit [facility] [place] [address] [phone] Neil Kent MD [address] [place] [address] 04/16/2025 11:00 AM CDT Virtual Visit [facility] [address] 4th [place] [phone] Meredith Carrera PA-C [address] [place] [address] 244085 documented as of this encounter Visit Diagnoses [...] Score: 4 06/20/20 23 8:40 AM AIRCRAFT INSPECTOR documented as of this encounter Care Teams Note Specialist Relationship Specialty Start Date End Date Esha Grimm PA-C [address] [place] [phone] PCP - General Family Medicine 05/04/23 Diana Desir, [facility] 3033 [place] [address] Pharmacist Pharmacist 04/17/21 Rain Galaviz PA-C [address] [place] [address] DR RAZO Lara [place] [address] Physician Director Of Staff Development Dermatology 04/28/21 Tavia Wyatt MD [address] [place] [address] DR RAZO Lara ADAIR [facility] [address] Dermatology 07/14/21 Erica Farrell APRN PUBLICATION DISTRIBUTOR [address] [place] 439285 Nurse Practitioner Cardiovascular Disease 09/09/21 Rich Barrett MD [address] [place] 051025 Physician Ophthalmology 01/21/22 Neil Kent MD 500 [place] [address] Dermatology 02/24/22 [facility] 3033 [place] [address] Assigned MTM Pharmacist 04/07/22 Livan Sharif MD [address] [address] [place] [address] Cardiovascular Disease 05/14/22 Catherine Cm MD [address] [address] [place] [address] Cardiovascular Disease 07/21/22 Valery Veronica PA-C 909 [place] [address] Physician Director Of Staff Development Dermatology 07/21/22 Bera Quinn APRN PUBLICATION DISTRIBUTOR [address] [place] [address] Nurse Practitioner Dermatology 09/21/22 Brea Quinn APRN PUBLICATION DISTRIBUTOR [address] [place] [address] Assigned Surgical Provider 10/09/22 05/01/24 [place] [address] [address] Assigned Musculoskeletal Provider 10/09/22 05/01/24 Alfonso Renteria MD 5775 [facility] 200 [place] [address] Assigned Neuroscience Provider 04/02/23 09/29/24 Radha Lomeli APRN PUBLICATION DISTRIBUTOR 6405 [facility] [address] [place] [address] Assigned Heart and Vascular Provider 05/28/23 11/29/24 Jelena David OD [address] [place] [address] Ophthalmology 06/15/23 Esha Grimm PA-C [address] [place] [address]-343283 Assigned PCP 07/16/23 Valery Veronica PA-C [address] [place] [address] Physician Director Of Staff Development Dermatology 09/19/23 Rey Tay MD [address] [place] [address] MD Gastroenterology 09/20/23 Rocky Zepeda DO [address] [place] [address] 346075 Physician Gastroenterology 09/20/23 Philip Dumont MD [address] [place] [address] Physician Ophthalmology 09/22/23 Meredith Carrera PA-C [address] [place] [address] 706695 Assigned Gastroenterology Provider 11/01/23 Neil Kent MD [address] 880850 Dermatology 11/02/23 [place] [address] [address] [facility] [place] [address] Neurological Surgery 12/26/23 Audrey Waite PA-C [address] [place] [address] 046745 Physician Director Of Staff Development Dermatology 02/28/24 Valery Veronica PA-C [address] [place] [address] Physician Director Of Staff Development Dermatology 04/10/24 Herminia Hatch MD [facility]5 [place] [address] Assigned Rheumatology Provider 07/02/24 Jelena David, SONJA [address] [facility] [place] [address] Ophthalmology 08/30/24 [place] [address] [place] [address] Assigned Neuroscience Provider 09/30/24 Maru Man PA-C [address] [place] [address] 551800 Physician Director Of Staff Development Dermatology 10/03/24 Maru Man PA-C [address] [place] [address] Physician Director Of Staff Development Dermatology 10/22/24 Jelena David OD [address] [place] [address] Assigned Surgical Provider 10/31/24 Fabiano [place], BRYCE [address] [place] [address] Assigned Heart and Vascular Provider 11/30/24 documented as of this encounter
--- OUTSIDE RECORDS SUMMARY | 2024-12-17 21:40 | XMS_ITS ---
Author Organization [place] Address [address] [place] [address] Care Team Providers Care Reimbursement Director Name Role Phone Diana Desir Stanislav [facility] Unavailable Rain Galaviz PA-C Unavailable Tavia Wyatt MD Unavailable Erica Farrell APRN SAMPLE EXAMINER Unavailable Rich Barrett MD Unavailable [phone] Neil Kent MD Unavailable Diana Desir [facility] Unavailable Livan Sharif MD Unavailable Catherine Cm MD Unavailable + Valery VeronicaC Unavailable [phone] Brea Quinn APRN SAMPLE EXAMINER Unavailable Esha Grimm PA-C Primary Care Provider [phone] Jelena David OD Unavailable Esha Grimm PA-C Unavailable [phone] Valery Veronica PA-C Unavailable Rey Tay MD Unavailable DuaneRocky Unavailable Philip Dumont MD Unavailable Meredith Carrera PA-C Unavailable Neil Kent MD Unavailable Juan Pablo Emmanuel MD Unavailable Audrey Waite PA-C Unavailable Valery Veronica PA-C Unavailable Herminia Hatch MD Unavailable Jelena David OD Unavailable [phone] Juan Pablo Emmanuel MD Unavailable Maru Man-C Unavailable [phone] Maru Man-C Unavailable Jelena David OD Unavailable Fabiano Correa [place] [facility] Unavailable Primary Care Care Coordination Status:Closed (Closed) Start date:11/23/2024 End date:11/26/2024 Close reason:Duplication of Care Management services Overview 11/23: Defer to 11/26; Active communication within Care Team - regarding Pt's results -eo Continued Care and Services Coordination
--- OUTSIDE RECORDS SUMMARY | 2024-12-17 21:40 | XMS_ITS | Encounter Summary ---
Author Organization [place] Address [address] [place] [address] Care Team Providers Care Respiratory Equipment Assistant Name Role Phone Diana Desir [facility] Unavailable [phone] Rain Galaviz PA-C Unavailable [phone] Tavia Wyatt MD Unavailable [phone]N [address] PATROL OFFICER Unavailable Rich Barrett MD Unavailable [phone] Neil Kent MD Unavailable Diana Desir [facility] Unavailable Livan Sharif MD Unavailable Catherine Cm MD Unavailable + Valery Veronica PA-C Unavailable Brea Quinn TECHNICAL SUPPORT AGENT HIGHWAY PATROL OFFICER Unavailable Brea Quinn TECHNICAL SUPPORT AGENT HIGHWAY PATROL OFFICER Unavailable Jose Francisco Johnson MD Unavailable Alfonso Renteria MD Unavailable [phone] Esha Grimm PA-C Primary Care Provider Radha Lomeli APRN HIGHWAY PATROL OFFICER Unavailable Jelena David OD Unavailable [phone] Esha Grimm PA-C Unavailable Valery Veronica PA-C Unavailable Rey Tay MD Unavailable Rocky Zepeda DO Unavailable Philip Dumont MD Unavailable Meredith Carrera PA-C Unavailable [phone] Neil Kent MD Unavailable Juan Pablo [...] Contact Info) Description 11/15/[address] [facility] [address] [address] Vivian Grant Social History Tobacco Use Types [...] do you attend chur or jain services? 1 to 4 times [...] Score 0 10/25/2023 [facility] - Occupational [...] exercise at this level? 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 [place] [address] [phone] Neil Kent MD 500 [place], [place] 5093[address] 04/16/2025 11:00 AM CDT Virtual Visit [facility] [address] 4th [place] [phone] Meredith Carrera PA-C [address] [place] [address] [phone] documented as of this encounter Visit Diagnoses [...] Total Score: 4 06/20/20 23 8:40 AM ALL AROUND GEAR MACHINE OPERATOR documented as of this encounter Care Teams Respiratory Equipment Assistant Relationship Specialty Start Date End Date Esha Grimm PA-C [address] [place] [phone] PCP - General Family Medicine 05/04/23 Diana Desir, [facility] [address] [place] [address] Pharmacist Pharmacist 04/17/21 Rain Galaviz PA-C [address] [place] [address] DR RAZO Lara [place] [address] Physician Assembler Wire Mesh Gate Dermatology 04/28/21 Tavia Wyatt MD [address] [place] [address] DR RAZO Lara [place] [address] Dermatology 07/14/[address]N HIG[address] PATROL OFFICER [address] [place] [address]75 Nurse Practitioner Cardiovascular Disease 09/09/21 Rich Barrett MD [address] [place] [address] Physician Ophthalmology 01/21/22 Neil Kent MD 500 [place] [address] Dermatology 02/24/22 Diana Desir, [facility] [address] [place] [address] Assigned MTM Pharmacist 04/07/22 Livan Sharif MD [address] [place] 8[address]25 Cardiovascular Disease 05/14/22 Ctaherine Cm MD [address] [place] 58[address]65 Cardiovascular Disease 07/21/22 Valery Veronica PA-C 909 [place] [address] Physician Assembler Wire Mesh Gate Dermatology 07/21/22 Brea Quinn APRN HIGHWAY PATROL OFFICER [address] [place] [address] Nurse Practitioner Dermatology 09/21/22 Brea Quinn APRN HIGHWAY PATROL OFFICER [address] [place] [address] Assigned Surgical Provider 10/09/22 05/01/24 [place] [address] [address] Assigned Musculoskeletal Provider 10/09/22 05/01/24 Alfonso Renteria MD 5775 [facility] 200 [place], [place] 450026 Assigned Neuroscience Provider 04/02/23 09/29/[address] Lomeli APRN HIG[address] PATROL OFFICER [address] [place], [place] [address] [place] [address] Assigned Heart and Vascular Provider 05/28/23 11/29/24 Jelena David OD [address] [facility] [place] [address] Ophthalmology 06/15/23 Esha Grimm PA-C [address] [place] [address] Assigned PCP 07/16/23 Valery Veronica PA-C [address] [place] [address] Physician Assembler Wire Mesh Gate Dermatology 09/19/23 Rey Tay MD [address] [place] [address] MD Gastroenterology 09/20/23 Rocky Zepeda DO [address] [place] [address] 675115 Physician Gastroenterology 09/20/23 Philip Dumont MD [address] [place] [address] Physician Ophthalmology 09/22/23 Meredith Carrera PA-C [address] [place] [address] 954275 Assigned Gastroenterology Provider 11/01/23 Neil Kent MD [address] [address] Dermatology 11/02/23 [place] [address] [place] [address] Neurological Surgery 12/26/23 Audrey Waite PA-C [address] [place] [address] Physician Assembler Wire Mesh Gate Dermatology 02/28/24 Valery Veronica PA-C [address] [address] Physician Assembler Wire Mesh Gate Dermatology 04/10/24 Herminia Hatch MD [address] [place] [address] [phone] Assigned Rheumatology Provider 07/02/24 Jelena David, SONJA [address] [facility] [place] [address] Ophthalmology 08/30/24 [place] [address] [place] [address] Assigned Neuroscience Provider 09/30/24 Maru Man PA-C [address] [place] [address] 487560 Physician Assembler Wire Mesh Gate Dermatology 10/03/24 Maru Man PA-C [address] [place] [address] Physician Assembler Wire Mesh Gate Dermatology 10/22/24 Jelena David, SONJA [address] [facility] [place] [address] Assigned Surgical Provider 10/31/24 Fabiano Correa NP [address] [place] [address] Assigned Heart and Vascular Provider 11/30/24 documented as of this encounter
--- OUTSIDE RECORDS SUMMARY | 2024-12-17 21:40 | XMS_ITS | Encounter Summary ---
Author Organization [place] Address [address] [place] [address] Care Team Providers Care Dye Mixer Name Role Phone Lita Oseguera Unavailable Unavailable Marija Edgar APRN COLLEGE PROFESSOR Primary Care Provider + Chanelle Mccann APRN CNM Unavailab le Kyara De La Fuente RN Unavailable [phone] Marija Edgar APRN COLLEGE PROFESSOR Unavailable Mynor Broussard MD Unavailable [phone] Keisha Dotson MD Unavailable [phone] Mary Mejia Unavailable Unavailable Stacey Briones SAGGER PREPARER Unavailable [phone] Lesley Guillermo CHW Unavailable Mary Mjeia Unavailable Unavailable Lita Oseguera Unavailable Unavailable Galo Burrell MD Unavailable Unavailable Cristina Wood Unavailable Lesley Guillermo CHW Unavailable Meredith Bedoya Unavailable Unavailable Cristina Wood Unavailable Diana Desir [facility] Unavailable [place], Rain Lena PA-C Unavailable Summer Lara MD Unavailable Summer Lara MD Unavailable [phone] Summer Lara MD Unavailable [phone] Tavia Wyatt MD Unavailable [phone] Johnny Murillo MD Unavailable [phone] Erica Farrell APRN COLLEGE PROFESSOR Unavailable VikasTeresita H Unavailable Tavia [place]att MD Unavailable [phone] Diana Desir [facility] Unavailable [phone] Rich Barrett MD Unavailable [phone] Neil [place] MD Unavailable [facility] Unavailable Erica Farrell APRN COLLEGE PROFESSOR Unavailable Diana Desir [facility] Unavailable [phone] Jelena David OD Unavailable Galo Burrell MD Unavailable Unavailable Livan Sharif MD Unavailable Livan Sharif MD Unavailable Catherine Cm MD Unavailable + Valery Veronica PA-C Unavailable [phone] Catherine Cm MD Unavailable + Johnny Murillo MD Unavailable [phone] Brea Quinn APRN COLLEGE PROFESSOR Unavailable [phone] Brea Quinn INBOUND SALES CONSULTANT COLLEGE PROFESSOR Unavailable [phone] Jose Francisco Johnson MD Unavailable Livan Sharif MD Unavailable Catherine Cm MD Unavailable + Sydnie Martinez RN Unavailable Unavailable Alfonso Renteria MD Unavailable Esha Grimm PA-C Primary Care Provider Cheng Todd PA-C Unavailable Radha Lomeli APRN, CNP Unavailable Jelena David OD Unavailable Pao Joseph RN Unavailable Unavailable Esha Grimm PA-C Unavailable [phone] Valery Veronica PA-C Unavailable Rey Tay MD Unavailable Rocky Zepeda DO Unavailable Philip Dumont MD Unavailable [phone] Meredith Carrera PA-C Unavailable [phone] Neil Kent MD Unavailable Juan Pablo Emmanuel MD Unavailable Audrey Waite PA-C Unavailable [phone] Valery Veronica PA-C Unavailable Herminia Hatch MD Unavailable Jelena David OD Unavailable Juan Pablo Emmanuel MD Unavailable Maru Man PA-C Unavailable [phone] Maru Man PA-C Unavailable [phone] Jelena David OD Unavailable Fabiano Correa NP Unavailable Reason for Visit * Reason Comments Medication Refill Encounter Details Date Type Department Care Team (Late st Contact Info) Description 07/14/[address] [address] Rakesh Cid PA-C [address] [place] [address] Medication Refill Social History Tobacco Use Types [...] Sex Female 4:13 AM VICE PRESIDENT OF MARKETING Gender Identity Female 03/02/2021 5:45 PM CDT Sexual Orientation Straight 02/28/2020 12 :51 AM CDT COVID-19 Exposure Response Date Recorded In the last month, have you been in contact with someone who was confirmed or suspected to have Coronavirus / COVID-19? No / Unsure 06/24/2020 3:01 PM VICE PRESIDENT OF MARKETING documented as of this encounter Miscellaneous Notes * Telephone Encounter - Estephania Black RN - 07/16/2020 11:38 AM VICE PRESIDENT OF MARKETING Routing refill request to provider for review/approval because: Labs out of range: PHQ9> 4 patient was seen 3 weeks ago. Estephania Black RN Flex PRESIDENT OF MARKETING * Telephone Encounter - Brea Perry RN - 07/16/2020 11:34 AM VICE PRESIDENT OF MARKETING Routing to correct clinic. PRESIDENT OF MARKETING documented in this encounter Plan of Treatment Upcoming Encounters Date Type Department Care Team (Late Contact Info) Description 12/19/2024 2:00 PM CDT Office Visit [address] [place] [address] Lauren Claudio PA-C [address] [place] [address] 12/26/2024 7:30 AM CDT Office Visit [facility] [address] [phone] Neil [place] MD [address] [place] [address] 04/16/2025 11:00 AM CDT Virtual Visit [facility]astroenter[facility] [address] [place] [address] 4th [place] [phone] Meredith Carrera PA-C [address] [place] [address] documented as of this encounter Visit Diagnoses Diagnosis Anxiety Anxiety state, unspecified documented in this encounter Additional Health Concerns Infection Onset Date Last Indicated Resolved Time Rule Out COVID-19 07/30/2020 07/30/2020 07/30/2020 7:11 PM VICE PRESIDENT OF MARKETING Rule Out COVID-19 08/30/2020 08/30/2020 08/30/2020 5:05 PM VICE PRESIDENT OF MARKETING Rule Out COVID-19 09/24/2020 09/24/2020 09/24/2020 9:24 AM CDT Rule Out COVID-19 11/05/2020 11/05/2020 11/06/2020 1:09 PM CDT Rule Out COVID-19 05/11/2021 05/11/2021 05/13/2021 10:18 AM CDT Rule Out COVID-19 07/13/2021 07/13/2021 07/14/2021 3:04 PM VICE PRESIDENT OF MARKETING Rule Out COVID-19 07/18/2021 07/18/2021 07/20/2021 1:56 PM VICE PRESIDENT OF MARKETING COVID-19 07/18/2021 07/18/2021 08/08/2021 11:3 9 PM VICE PRESIDENT OF MARKETING Rule Out COVID-19 12/18/2021 12/18/2021 12/19/2021 11:34 AM CDT Rule Out COVID-19 02/24/2022 02/24/2022 02/25/2022 1:08 PM CDT Rule Out COVID-19 04/26/2022 04/26/2022 04/26/2022 6:47 AM CDT Rule Out COVID-19 05/17/2022 05/17/2022 05/17/2022 10:20 PM VICE PRESIDENT OF MARKETING Rule Out COVID-19 06/09/2022 06/09/2022 06/09/2022 9:35 AM VICE PRESIDENT OF MARKETING COVID-19 06/09/2022 06/09/2022 06/30/2022 11:4 1 PM VICE PRESIDENT OF MARKETING Rule Out COVID-19 11/10/2022 11/10/2022 11/11/2022 [...] Total Score: 9 06/25/20 20 7:04 AM VICE PRESIDENT OF MARKETING documented as of this encounter Care Teams Dye Mixer Relationship Specialty Start Date End Date Marija Edgar APRN COLLEGE PROFESSOR PCP - General Nurse Practitioner 04/30/20 04/14/23 Esha Grimm PA-C [address] [place] [phone] PCP - General Family Medicine 05/04/23 Lita Oseguera Personal Advocate & Liaison (PAL) 02/28/20 03/27/23 Chanelle Mccann APRN CNM [address] [place] [address] 200 [place] [address] Assigned OBGYN Provider 05/02/2005/09 Kyara De La Fuente, RN Specialty Social Media Content Specialist Neurology 06/04/20 03/05/21 Marija Edgar APRN COLLEGE PROFESSOR Assigned PCP 06/08/20 04/29/23 Mynor Broussard MD 6[address] [facility] 500 [place], [place] 040555 Assigned Surgical Provider 06/01/20 11/28/21 Keisha Dotson MD 909 [place], [place] 177885 Assigned Neuroscience Provider 06/04/20 04/01/23 Mary Mejia Financial Resource Worker 08/07/20 08/21/20 Stacey Briones, SAGGER PREPARER Lead Social Media Content Specialist Primary Care - CC 08/11/2012/30 Lesley Guillermo, CHW Community Health Worker 08/11/2010/01 Mary Mejia Financial Resource Worker 09/02/20 10/06/20 Lita Oseguera Personal Advocate & Liaison (PAL) Family Medicine 09/10/20 09/21/20 Galo Burrell MD Assigned Heart and Vascular Provider 10/05/20 04/02/22 Cristina Wood Financial Resource Worker 10/07/20 10/14/20 Lesley Guillermo, [facility] Community Health Worker 10/23/2012/30 Meredith Bedoya Financial Resource Worker 10/23/20 11/23/20 Cristina Wood Financial Resource Worker 02/09/21 02/09/21 Diana Desir, [facility] 30[address] [place], [place] 298636 Pharmacist Pharmacist 04/17/21 Rain Galaviz PA-C [address] [place] [address] [address] [place], [place] [phone] Physician Dairy Laboratory Technician Dermatology 04/28/21 Summer Lara MD [address] [place] [address] [phone] Assigned OBGYN Provider 05/10/2105/23 Summer Lara MD [address] [place] [address] 121384 Assigned OBGYN Provider 05/31/21 2 Summer Lara MD [address] [place] [address] Assigned OBGYN Provider 05/24/2105/30 Tavia [place] MD [address] [place], [place] 5[address] Dermatology 07/14/21 Johnny Murillo MD [address] [place] [address] Assigned Musculoskeletal Provider 08/30/21 03/17/22 Erica Farrell APRN COLLEGE PROFESSOR [address] [facility] [address] [place] [address] Nurse Practitioner Cardiovascular Disease 09/09/21 Teresita Bean, [facility] [address] [place] [phone] Pharmacist Pharmacist 09/24/21 09/29/21 Tavia [place] MD [address] [place], [place] 777960 Assigned Surgical Provider 11/29/21 05/07/22 [facility] 3033 [place] [address] Assigned MTM Pharmacist 01/02/22 Rich Barrett MD 3033 [place] [address] Physician Ophthalmology 01/21/22 Neil [place] MD 500 [place] [address] Dermatology 02/24/22 Roney Story DPM [address] [facility] [address] [place] [address] Assigned Musculoskeletal Provider 03/20/22 08/13/22 Erica Farrell APRN COLLEGE PROFESSOR 1700 [place] [address] Assigned Heart and Vascular Provider 04/03/22 04/16/22 [facility] [address] [place], [place] 459916 Assigned MTM Pharmacist 04/07/22 Jelena David OD [address] [facility] [address] Assigned Surgical Provider 05/08/22 10/08/22 Galo Burrell MD Assigned Heart and Vascular Provider 04/17/22 06/11/22 Livan Sharif MD [address] [place] [address] Cardiovascular Disease 05/14/22 Livan Sharif MD [address] [place] [address] Assigned Heart and Vascular Provider 06/12/22 07/23/22 Catherine Cm MD [address] [place] 0[address]105 Cardiovascular Disease 07/21/22 Valery Veronica PA-C 909 [place], [place] 044785 Physician Dairy Laboratory Technician Dermatology 07/21/22 Catherine Cm MD [address] [facility] [address] [place] [address] Assigned Heart and Vascular Provider 07/24/22 11/05/22 Johnny Murillo MD [address] [place] [address] Assigned Musculoskeletal Provider 08/14/22 10/08/22 Brea Quinn APRN COLLEGE PROFESSOR [address] [place] [address] Nurse Practitioner Dermatology 09/21/22 Brea Quinn APRN COLLEGE PROFESSOR [address] [place] [address] Assigned Surgical Provider 10/09/22 05/01/24 [place] [address] [place] [address] Assigned Musculoskeletal Provider 10/09/22 05/01/24 Livan Sharif MD [address] [facility] S [facility] [address] [place] [address] Assigned Heart and Vascular Provider 11/06/22 11/12/22 Catherine Cm MD [address] [facility] [address] [place] [address] Assigned Heart and Vascular Provider 11/13/22 05/27/23 Sydnie Martinez RN Personal Advocate & Liaison (PAL) Family Medicine 03/28/23 07/31/23 Alfonso Renteria MD [address] [facility] [address] 200 [place] [address] Assigned Neuroscience Provider 04/02/23 09/29/24 Cheng Todd PA-C [address] [place] [address] Assigned PCP 04/30/23 07/15/23 Radha Lomeli APRN COLLEGE PROFESSOR [address] [facility] [place] [address] [place] [address] Assigned Heart and Vascular Provider 05/28/23 11/29/24 Jelena David OD [address] [facility] [address] Ophthalmology 06/15/23 Pao Joseph, VJ Personal Advocate & Liaison (PAL) Nurse 08/01/23 11/07/23 Esha Grimm PA-C [address] [place] [address] Assigned PCP 07/16/23 Valery Veronica PA-C [address] [place] [address] [phone] Physician Dairy Laboratory Technician Dermatology 09/19/23 Rey Tay MD [address] [place] [address] Gastroenterology 09/20/23 Rocky Zepeda DO [address] [place] [address] Physician Gastroenterology 09/20/23 Philip Dumont MD [address] [place] [address] Physician Ophthalmology 09/22/23 Meredith Carrera PA-C [address] [place] [address] Assigned Gastroenterology Provider 11/01/23 Neil Kent MD [address] [place] [address] MD Dermatology 11/02/23 [place] [address] [address] Neurological Surgery 12/26/23 Audrey Waite PA-C [address] [place] [address] Physician Dairy Laboratory Technician Dermatology 02/28/24 Valery Veronica PA-C [address]442 [address] [place] [address] Physician Dairy Laboratory Technician Dermatology 04/10/24 Herminia Hatch MD [facility]5 [place], [place] 63948125 Assigned Rheumatology Provider 07/02/24 Jelena David OD [address] [facility] [place] [address] Ophthalmology 08/30/24 [place] [address] [address] [place] [address] Assigned Neuroscience Provider 09/30/24 Maru Man PA-C [address] [place] [address] Physician Dairy Laboratory Technician Dermatology 10/03/24 Maru Man PA-C [address] [place] [address] Physician Dairy Laboratory Technician Dermatology 10/22/24 Jelena David OD [address] [facility] [place] [address] Assigned Surgical Provider 10/31/24 Fabiano [place] NP [address] [address] Assigned Heart and Vascular Provider 11/30/24 documented as of this encounter
--- OUTSIDE RECORDS SUMMARY | 2024-12-17 21:40 | XMS_ITS | Encounter Summary ---
Author Organization [facility] Address [address] [place] [address] Care Team Providers Care Toolsmith Name Role Phone Lita Oseguera Unavailable Unavailable Marija Edgar APRN OPTICAL INSTRUMENT ASSEMBLER Primary Care Provider + Chanelle Mccann APRN CNM Unavailab le Kyara De La Fuente RN Unavailable [phone] Marija Edgar APRN OPTICAL INSTRUMENT ASSEMBLER Unavailable Mynor Broussard MD Unavailable [phone] Keisha Dotson MD Unavailable [phone] Mary Mejia Unavailable Unavailable Stacey Briones COFFEE BREWER Unavailable Lesley Guillermo CHW Unavailable Mary Mejia Unavailable Unavailable Lita Oseguera Unavailable Unavailable Galo Burrell MD Unavailable Unavailable Cristina Wood Unavailable Lesley Guillermo CHW Unavailable Meredith Bedoya Unavailable Unavailable Cristina Wood Unavailable Diana Desir [facility] Unavailable [phone] Ruhland, Rain Lena PA-C Unavailable Summer Lara MD Unavailable [phone] Summer Lara MD Unavailable [phone] Summer Lara MD Unavailable [phone] Tavia Wyatt MD Unavailable [phone] Johnny Murillo MD Unavailable [phone] Erica Farrell APRN OPTICAL INSTRUMENT ASSEMBLER Unavailable VikasTeresita H Unavailable Tavia Wyatt MD Unavailable [phone] Diana Desir [facility] Unavailable [phone] Rich Barrett MD Unavailable [phone] Neil Kent MD Unavailable Roney Story [facility] Unavailable Erica Farrell APRN OPTICAL INSTRUMENT ASSEMBLER Unavailable Diana Desir [facility] Unavailable [phone] Jelena David OD Unavailable Galo Burrell MD Unavailable Unavailable Livan Sharif MD Unavailable Livan Sharif MD Unavailable Catherine Cm MD Unavailable + Valery Veronica PA-C Unavailable [phone] Catherine Cm MD Unavailable + Johnny Murillo MD Unavailable +[phone] Brea Quinn APRN OPTICAL INSTRUMENT ASSEMBLER Unavailable [phone] Brea Quinn FIREPOT OPERATOR AND TENDER OPTICAL INSTRUMENT ASSEMBLER Unavailable [phone] Jose Francisco Johnson MD Unavailable Livan Sharif MD Unavailable Catherine Cm MD Unavailable + Sydnie Martinez RN Unavailable Unavailable Alfonso Renteria MD Unavailable [phone] Esha Grimm PA-C Primary Care Provider Cheng Todd PA-C Unavailable Radha Lomeli APRN, CNP Unavailable Jelena David OD Unavailable [phone] Pao Joseph RN Unavailable Unavailable Esha Grimm PA-C Unavailable [phone] Valery Veronica PA-C Unavailable Rey Tay [...] Contact Info) Description 07/10/[address] [facility] [place] [address] [place] [address] Mynor Broussard MD [address] [place] [address] Social History Tobacco Use Types Packs/Day Years [...] PM CDT Legal Sex Female 4:13 AM SKID WRAPPER Gender Identity Female 03/02/2021 5:45 PM CDT Sexual Orientation Straight 02/28/2020 12 :51 AM CDT COVID-19 Exposure Response Date Recorded In the last month, have you been in contact with someone who was confirmed or suspected to have Coronavirus / COVID-19? No / Unsure 06/24/2020 3:01 PM SKID WRAPPER documented as of this encounter Plan of Treatment Upcoming Encounters Date Type Department Care Team (Late st Contact Info) Description 12/19/2024 2:00 PM CDT Office Visit [facility] [id number] [place] [phone] Lauren Claudio PA-C [address] [place] [address] 12/26/2024 7:30 AM CDT Office Visit [facility] [address] [phone] Neil Kent MD [address] [place] [address] 04/16/2025 11:00 AM CDT Virtual Visit [facility] Gastroenterology [address] 4th [place] [phone] Meredith Carrera PA-C [address] [place] [address] documented as of this encounter Visit Diagnoses Not on filedocumented in this encounter Additional Health Concerns Infection Onset Date Last Indicated Resolved Time Rule Out COVID-19 07/30/2020 07/30/2020 07/30/2020 7:11 PM SKID WRAPPER Rule Out COVID-19 08/30/2020 08/30/2020 08/30/2020 5:05 PM SKID WRAPPER Rule Out COVID-19 09/24/2020 09/24/2020 09/24/2020 9:24 AM CDT Rule Out COVID-19 11/05/2020 11/05/2020 11/06/2020 1:09 PM CDT Rule Out COVID-19 05/11/2021 05/11/2021 05/13/2021 10:18 AM CDT Rule Out COVID-19 07/13/2021 07/13/2021 07/14/2021 3:04 PM SKID WRAPPER Rule Out COVID-19 07/18/2021 07/18/2021 07/20/2021 1:56 PM SKID WRAPPER COVID-19 07/18/2021 07/18/2021 08/08/2021 11:3 9 PM SKID WRAPPER Rule Out COVID-19 12/18/2021 12/18/2021 12/19/2021 11:34 AM CDT Rule Out COVID-19 02/24/2022 02/24/2022 02/25/2022 1:08 PM CDT Rule Out COVID-19 04/26/2022 04/26/2022 04/26/2022 6:47 AM CDT Rule Out COVID-19 05/17/2022 05/17/2022 05/17/2022 10:20 PM SKID WRAPPER Rule Out COVID-19 06/09/2022 06/09/2022 06/09/2022 9:35 AM SKID WRAPPER COVID-19 06/09/2022 06/09/2022 06/30/2022 11:4 1 PM SKID WRAPPER Rule Out COVID-19 11/10/2022 11/10/2022 11/11/2022 [...] Total Score: 9 06/25/20 20 7:04 AM SKID WRAPPER documented as of this encounter Care Teams Toolsmith Relationship Specialty Start Date End Date Marija Edgar APRN OPTICAL INSTRUMENT ASSEMBLER PCP - General Nurse Practitioner 04/30/20 04/14/23 Esha Grimm PA-C [address] [place] [phone] PCP - General Family Medicine 05/04/23 Lita Oseguera Personal Advocate & Liaison (PAL) 02/28/20 03/27/23 Chanelle Mccann APRN CNM [address] [address] Assigned OBGYN Provider 05/02/2005/09 Kyara De La Fuente, RN Specialty Brake Operator Helper Neurology 06/04/20 03/05/21 Marija Edgar APRN CNP Assigned PCP 06/08/20 04/29/23 Mynor Broussard MD [address] [phone] Assigned Surgical Provider 06/01/20 11/28/21 Keisha Dotson MD [address] [place], [place] [phone] Assigned Neuroscience Provider 06/04/20 04/01/23 Mary Mejia Financial Resource Worker 08/07/20 08/21/20 Stacey Briones, [facility] Lead Brake Operator Helper Primary Care - CC 08/11/2012/30 Lesley Guillermo, [facility] Community Health Worker 08/11/2010/01 Mary Mejia Financial Resource Worker 09/02/20 10/06/20 Lita Oseguera Personal Advocate & Liaison (PAL) Family Medicine 09/10/20 09/21/20 Galo Burrell MD Assigned Heart and Vascular Provider 10/05/20 04/02/22 Cristina Wood Financial Resource Worker 10/07/20 10/14/20 Lesley Guillermo, [facility] Community Health Worker 10/23/2012/30 Meredith Bedoya Financial Resource Worker 10/23/20 11/23/20 Cristina Wood Financial Resource Worker 02/09/21 02/09/21 [facility] [address] [place] [address] Pharmacist Pharmacist 04/17/21 Rain Galaviz PA-C [address] [facility] [place] [address] Physician Collector Of Port Dermatology 04/28/21 Summer Lara MD [address] [place] [address] [place], [place] 420494 Assigned OBGYN Provider 05/10/2105/23 Summer Lara MD [address] [place], [place] 9860[address] Assigned OBGYN Provider 05/31/21 Summer Lara MD [address] [place] [address] [place], [place] [phone] Assigned OBGYN Provider 05/24/2105/30 Tavia Wyatt MD [address] [place], [place] [phone] Dermatology 07/14/21 Johnny Murillo MD [address] [place] [address] Assigned Musculoskeletal Provider 08/30/21 03/17/22 Erica Farrell APRN OPTICAL INSTRUMENT ASSEMBLER [address] [facility] [address] [place] [id number] Nurse Practitioner Cardiovascular Disease 09/09/21 Teresita Bean, [facility] [address] [place] [address] Pharmacist Pharmacist 09/24/21 09/29/21 Tavia Wyatt MD [address] [place] [address] Assigned Surgical Provider 11/29/21 05/07/22 Diana Desir, [facility] [place] [address] Assigned MTM Pharmacist 01/02/22 Rich Barrett MD [facility] [place] [address] Physician Ophthalmology 01/21/22 Neil Kent MD [address] [place], [place] [phone] Dermatology 02/24/22 Roney Story DPM [address] [facility] [address] [place] [address] Assigned Musculoskeletal Provider 03/20/22 08/13/22 Erica Farrell APRN OPTICAL INSTRUMENT ASSEMBLER [address] [place] [address] Assigned Heart and Vascular Provider 04/03/22 04/16/22 [facility] [place] [address] Assigned MTM Pharmacist 04/07/22 Jelena David OD [address] [place] [address] Assigned Surgical Provider 05/08/22 10/08/22 Galo Burrell MD Assigned Heart and Vascular Provider 04/17/22 06/11/22 Livan Sharif MD [address] [place] [address] Cardiovascular Disease 05/14/22 Livan Sharif MD [address] [place] [address] Assigned Heart and Vascular Provider 06/12/22 07/23/22 Catherine Cm MD [address] [place] [address] Cardiovascular Disease 07/21/22 Valery Veronica, PA-C [address] [place] [address] Physician Collector Of Port Dermatology 07/21/22 Catherine Cm MD [address] [place] [address] Assigned Heart and Vascular Provider 07/24/22 11/05/22 Johnny Murillo MD [address] [address] Assigned Musculoskeletal Provider 08/14/22 10/08/22 Brea Quinn APRN OPTICAL INSTRUMENT ASSEMBLER [address] [place] [address] Nurse Practitioner Dermatology 09/21/22 Brea Quinn APRN OPTICAL INSTRUMENT ASSEMBLER [address] [facility] [place] [address] Assigned Surgical Provider 10/09/22 05/01/24 [place] [address] [place] [address] [place] [address] Assigned Musculoskeletal Provider 10/09/22 05/01/24 Livan Sharif MD [address] [phone] [place] [id number] Assigned Heart and Vascular Provider 11/06/22 11/12/22 Catherine Cm MD [phone] [place] [id number] Assigned Heart and Vascular Provider 11/13/22 05/27/23 Sydnie Martinez, RN Personal Advocate & Liaison (PAL) Family Medicine 03/28/23 07/31/23 Alfonso Renteria MD [address] [facility] [address] [place] [address] Assigned Neuroscience Provider 04/02/23 09/29/24 Cheng Todd PA-C [address] [place] [address] Assigned PCP 04/30/23 07/15/23 Radha Lomeli APRN OPTICAL INSTRUMENT ASSEMBLER [address] [facility] [address] [place] [address] Assigned Heart and Vascular Provider 05/28/23 11/29/24 Jelena David OD [address] [place] [address] MD Ophthalmology 06/15/23 Pao Joseph, VJ Personal Advocate & Liaison (PAL) Nurse 08/01/23 11/07/23 Esha Grimm PA-C [address] [place] [phone] Assigned PCP 07/16/23 Valery Veronica PA-C [address] [place] [address] 975145 Physician Collector Of Port Dermatology 09/19/23 Rey Tay MD [address] [place] [address] 733985 Gastroenterology 09/20/23 Rocky Zepeda DO [address] [place] [address] 755085 Physician Gastroenterology 09/20/23 Philip Dumont MD [address] [place] [address] [phone] Physician Ophthalmology 09/22/23 Meredith Carrera PA-C [address] [place] [address] [phone] Assigned Gastroenterology Provider 11/01/23 Neil Kent MD [address] [address] Dermatology 11/02/23 [place] [address] [place] [address] Neurological Surgery 12/26/23 Audrey Waite PA-C [address] [place] [address] Physician Collector Of Port Dermatology 02/28/24 Valery Veronica PA-C [address] [place] [address] Physician Collector Of Port Dermatology 04/10/24 Herminia Hatch MD [address] [place] [address] Assigned Rheumatology Provider 07/02/24 Jelena David OD [address] [place] [address] [place] [id number] Ophthalmology 08/30/24 [place] [address] [place] [address] Assigned Neuroscience Provider 09/30/24 Maru Man PA-C [address] [place] [address] Physician Collector Of Port Dermatology 10/03/24 Maru Man PA-C [address] [place] [address] Physician Collector Of Port Dermatology 10/22/24 Jelena David OD [address] [facility] [place] [address] Assigned Surgical Provider 10/31/24 Fabiano Correa NP [address] [place] [address] Assigned Heart and Vascular Provider 11/30/24 documented as of this encounter
--- OUTSIDE RECORDS SUMMARY | 2024-12-17 21:41 | XMS_ITS | Encounter Summary ---
Author Organization [place] Address [address] [place] [address] Care Team Providers Care Door To Door Lead Generation Name Role Phone Lita Oseguera Unavailable Unavailable Marija Edgar APRN BRAZING MACHINE TENDER Primary Care Provider + Marija Edgar APRN BRAZING MACHINE TENDER Unavailable Mynor Broussard MD Unavailable [phone] Keisha Dotson MD Unavailable Galo Burrell MD Unavailable Unavailable Diana Desir [facility] Unavailable [phone] Rain Galaviz PA-C Unavailable Summer Lara MD Unavailable Tavia Wyatt MD Unavailable Johnny Murillo MD Unavailable [phone] Erica Farrell APRN BRAZING MACHINE TENDER Unavailable Teresita Bean [facility] Unavailable Tavia Wyatt MD Unavailable Diana Desir [facility] Unavailable [phone] Rich Barrett MD Unavailable [phone] Neil eKnt MD Unavailable Roney Story DPM Unavailable Erica Farrell DIRECTOR OF ROOMS BRAZING MACHINE TENDER Unavailable Diana Desir [facility] Unavailable [phone] Jelena David OD Unavailable Galo Burrell MD Unavailable Unavailable Livan Sharif MD Unavailable + Livan Sharif MD Unavailable + Catherine Cm MD Unavailable + Valery Veronica PA-C Unavailable [phone] Catherine Cm MD Unavailable + Johnny Murillo MD Unavailable [phone] Brea Quinn DIRECTOR OF ROOMS BRAZING MACHINE TENDER Unavailable [phone] Brea Quinn DIRECTOR OF ROOMS BRAZING MACHINE TENDER Unavailable [phone] Jose Francisco Johnson MD Unavailable Livna Sharif MD Unavailable + IsCatherine hobbs MD Unavailable + Sydnie Martinez RN Unavailable Unavailable Alfonso Renteria MD Unavailable Esha Grimm-C Primary Care Provider Cheng Todd PA-C Unavailable Radha Lomeli DIRECTOR OF ROOMS BRAZING MACHINE TENDER Unavailable [phone] Jelena David OD Unavailable Pao Joseph RN Unavailable Unavailable Esha Grimm-C Unavailable [phone] JeremíasValery damon PA-C Unavailable [phone] Rey Tay MD Unavailable Rocky Zepeda DO Unavailable Philip Dumont MD Unavailable Meredith Carrera PA-C Unavailable [phone] Neil Kent MD Unavailable Juan Pablo Emmanuel MD Unavailable [phone] Audrey Waite PA-C Unavailable [phone] Valery Veronica PA-C Unavailable Herminia Hatch MD Unavailable Jelena David OD Unavailable Juan Pablo Emmanuel MD Unavailable [phone] Maru Man-C Unavailable [phone] Maru Man-C Unavailable [phone] Jelena David OD Unavailable [phone] Fabiano Correa NP Unavailable [phone] Encounter Details Date Type Department Care Team (Late st Contact Info) Description 06/25/2021 [facility] [address] [address] Diana Desir, [facility] [address] [place] [address] Psoriasis (Primary Dx) Social History Tobacco Use [...] do you attend chur or yazidi services? More than 4 times per year [...] Answer Date Recorded PHQ-2 Score 0 04/02/2021 [facility] - Occupational Stress [...] a nursing home (including now)? No 08/11/2020 [place] Depression Scale Answer Date Recorded [place] Depression Score 5 01/14/2021 Last EPDS Self Harm Result Not on file 01/14 Education Answer Date Recorded What is the highest level of school you have completed or the highest degree you have received? 12th grade 08/07/2020 Comments No Sex and Gender Information Value Date Recorded Sex Assigned at Female 03/02/2021 5:45 PM CDT Legal Sex Female 4:13 AM CONTRACT RUNNER Gender Identity Female 03/02/2021 5:45 PM CDT Sexual Orientation Straight 02/28/2020 12 :51 AM CDT COVID-19 Exposure Response Date Recorded In the last month, have you been in contact with someone who was confirmed or suspected to have Coronavirus / COVID-19? No / Unsure 06/26/2021 8:28 AM CONTRACT RUNNER documented as of this encounter Miscellaneous Notes * Telephone Encounter - Diana Desir, [facility] - 06/26/2021 9:53 AM CST Discussed with PCP and verbal approval for betamethasone cream. Diana Desir, PharmD Medication Therapy Management Provider, [facility] Pager: [phone] RACT RUNNER documented in this encounter Plan of Treatment Upcoming Encounters Date Type Department Care Team (Late st Contact Info) Description 12/19/2024 2:00 PM CDT Office Visit [facility] [address] [place] [address] Lauren Claudio PA-C [id number] [place] [address] [phone] 12/26/2024 7:30 AM CDT Office Visit [facility] [address] [phone] Neil Kent MD [address] [place] [address] 04/16/2025 11:00 AM CDT Virtual Visit [facility] [place] [address] [place] [address] [address] [place] [phone] Meredith Carrera PA-C [address] [place] [address] documented as of this encounter Visit Diagnoses Diagnosis Psoriasis- Primary Other psoriasis documented in this encounter Additional Health Concerns Infection Onset Date Last Indicated Resolved Time Rule Out COVID-19 07/13/2021 07/13/2021 07/14/2021 3:04 PM CONTRACT RUNNER Rule Out COVID-19 07/18/2021 07/18/2021 07/20/2021 1:56 PM CONTRACT RUNNER COVID-19 07/18/2021 07/18/2021 08/08/2021 11:3 9 PM CONTRACT RUNNER Rule Out COVID-19 12/18/2021 12/18/2021 12/19/2021 11:34 AM CDT Rule Out COVID-19 02/24/2022 02/24/2022 02/25/2022 1:08 PM CDT Rule Out COVID-19 04/26/2022 04/26/2022 04/26/2022 6:47 AM CDT Rule Out COVID-19 05/17/2022 05/17/2022 05/17/2022 10:20 PM CONTRACT RUNNER Rule Out COVID-19 06/09/2022 06/09/2022 06/09/2022 9:35 AM CONTRACT RUNNER COVID-19 06/09/2022 06/09/2022 06/30/2022 11:4 1 PM CONTRACT RUNNER Rule Out COVID-19 11/10/2022 11/10/2022 11/11/2022 [...] as of this encounter Care Teams Door To Door Lead Generation Relationship Specialty Start Date End Date Marija Edgar APRN CNP PCP - General Nurse Practitioner 04/30/20 04/14/23 Esha Grimm PA-C [address] [place] [address] PCP - General Family Medicine 05/04/23 Lita Oseguera Personal Advocate & Liaison (PAL) 02/28/20 03/27/23 Marija Edgar APRN BRAZING MACHINE TENDER Assigned PCP 06/08/20 04/29/23 Mynor Broussard MD [address] 253[address] Assigned Surgical Provider 06/01/20 11/28/21 Keisha Dotson MD [address] [place], [place] [address] Assigned Neuroscience Provider 06/04/20 04/01/23 Galo Burrell MD Assigned Heart and Vascular Provider 10/05/20 04/02/22 [facility] [address] [place] [address] Pharmacist Pharmacist 04/17/21 Rain Galaviz PA-C [address] [place] [address] [address] [place] [address] Physician Meter Tester Polyphase Dermatology 04/28/21 Summer Lara MD [address] [place] [address] Assigned OBGYN Provider 05/31/21 2 Tavia Wyatt MD [address] [place] [address] [place] [phone] Dermatology 07/14/21 Johnny Murillo MD [address] [place] [address] Assigned Musculoskeletal Provider 08/30/21 03/17/22 Erica Farrell APRN BRAZING MACHINE TENDER [address] [facility] [address] [place] [address] Nurse Practitioner Cardiovascular Disease 09/09/21 Teresita Bean, [facility] [address] [facility] [address] [place], [place] [phone] Pharmacist Pharmacist 09/24/21 09/29/21 Tavia Wyatt MD [address] [place] [address] Assigned Surgical Provider 11/29/21 05/07/22 [facility] [address] [place] [address] Assigned MTM Pharmacist 01/02/22 Rich Barrett MD [address] [place] [address] Physician Ophthalmology 01/21/22 Neil Kent MD [address] [place] [address] Dermatology 02/24/22 Roney Story [address]PM [address] [facility] [address] [place] [address] Assigned Musculoskeletal Provider 03/20/22 08/13/22 Erica Farrell APRN BRAZING MACHINE TENDER [address] [place] [address] Assigned Heart and Vascular Provider 04/03/22 04/16/22 [facility] [address] [place] [address] Assigned MTM Pharmacist 04/07/22 Jelena David OD [address] [facility] [place] [address] Assigned Surgical Provider 05/08/22 10/08/22 Galo Burrell MD Assigned Heart and Vascular Provider 04/17/22 06/11/22 Livan Sharif MD [address] [place] [address] Cardiovascular Disease 05/14/22 Livan Sharif MD [address] [place] [address] Assigned Heart and Vascular Provider 06/12/22 07/23/22 Catherine Cm MD [address] [place] [address] Cardiovascular Disease 07/21/22 Valery Veronica, [facility] [address] [place], [place] 2189[address] Physician Meter Tester Polyphase Dermatology 07/21/22 Catherine Cm MD [address] [place] [address] [place] [address] Assigned Heart and Vascular Provider 07/24/22 11/05/22 Johnny Murillo MD [address] [place] [address] 878574 Assigned Musculoskeletal Provider 08/14/22 10/08/22 Brea Quinn APRN BRAZING MACHINE TENDER [address] [place] [address] 072255 Nurse Practitioner Dermatology 09/21/22 Brea Quinn APRN BRAZING MACHINE TENDER [address] [place] [address] [facility] [address] Assigned Surgical Provider 10/09/22 05/01/24 [place] [address] [place] [address] Assigned Musculoskeletal Provider 10/09/22 05/01/24 Livan Sharif MD [address] [address] [place] [address] Assigned Heart and Vascular Provider 11/06/22 11/12/22 Catherine Cm MD [address] [address] [place] [address] Assigned Heart and Vascular Provider 11/13/22 05/27/23 Sydnie Martinez RN Personal Advocate & Liaison (PAL) Family Medicine 03/28/23 07/31/23 Alfonso Renteria MD [address] [facility] [address] [place] [address] Assigned Neuroscience Provider 04/02/23 09/29/24 Cheng Todd PA-C [address] [place] [address] [phone] Assigned PCP 04/30/23 07/15/23 Radha Lomeli, ARLENE BRAZING MACHINE TENDER [address] [facility] [address] [place], [place] 2225[address] Assigned Heart and Vascular Provider 05/28/23 11/29/24 Jelena David OD [address] [facility] [address] Ophthalmology 06/15/23 Pao Joseph, RN Personal Advocate & Liaison (PAL) Nurse 08/01/23 11/07/23 Esha Grimm PA-C [address] [place] [phone] Assigned PCP 07/16/23 Valery Veronica PA-C [address] [place] [address] 945905 Physician Meter Tester Polyphase Dermatology 09/19/23 Rey Tay MD [address] [place] [address] Gastroenterology 09/20/23 Rocky Zepeda DO [address] [place] [address] 849945 Physician Gastroenterology 09/20/23 Philip Dumont MD [address] [place], [place] 796895 Physician Ophthalmology 09/22/23 Meredith Carrera PA-C [address] [place] [address] 358115 Assigned Gastroenterology Provider 11/01/23 Neil Kent MD [address] 333[address] MD Dermatology 11/02/23 [place] [address] [facility] [place], [place] 7648[address] Neurological Surgery 12/26/23 Audrey Waite PA-C [address] [place], [place] 133905 Physician Meter Tester Polyphase Dermatology 02/28/24 Valery Veronica PA-C [address] [place] [address] Physician Meter Tester Polyphase Dermatology 04/10/24 Herminia Hatch MD [address] [place], [place] [phone] Assigned Rheumatology Provider 07/02/24 Jelena David OD [address] [facility] [address] Ophthalmology 08/30/24 [place] [address] [place] [address] Assigned Neuroscience Provider 09/30/24 Maru Man PA-C [address] [place] [address] Physician Meter Tester Polyphase Dermatology 10/03/24 Maru Man PA-C [address] [place] [address] Physician Meter Tester Polyphase Dermatology 10/22/24 Jelena David OD [address] [facility] [place] [address] Assigned Surgical Provider 10/31/24 Fabiano [place], OCCUPATIONAL THERAPIST REHAB MANAGER [address] [place] [address] Assigned Heart and Vascular Provider 11/30/24 documented as of this encounter
--- OUTSIDE RECORDS SUMMARY | 2024-12-17 21:41 | XMS_ITS | Encounter Summary ---
Author Organization [facility] Address [address] [place] [address] Care Team Providers Care Substation Operator Conversion Name Role Phone Rakesh Cid PA-C Primary Care Provider Lita Oseguera Unavailable Unavailable Rakesh Cid PA-C Unavailable [phone] Lita Oseguera Unavailable Unavailable Marija Edgar APRN ASSISTANT PROFESSOR OF BIOCHEMISTRY Primary Care Provider + Chanelle Mccann APRN CNM Unavailab le Lesley Guillermo Unavailable [phone] Kyara De La Fuente RN Unavailable [phone] Marija Edgar APRN ASSISTANT PROFESSOR OF BIOCHEMISTRY Unavailable Mynor Broussard MD Unavailable [phone] Keisha Dotson MD Unavailable [phone] Mary Mejia Unavailable Unavailable Stacey Briones TANK ASSEMBLER Unavailable Lesley Guillermo Unavailable [phone] Mary Mejia Unavailable Unavailable Lita Oseguera Unavailable Unavailable Galo Burrell MD Unavailable Unavailable Cristina Wood Unavailable Lesley Guillermo Unavailable Meredith Bedoya Unavailable Unavailable Cristina Wood Unavailable Diana Desir [facility] Unavailable [phone] Rain Galaviz PA-C Unavailable Summer Lara MD Unavailable [phone] Summer Lara MD Unavailable [phone] Summer Lara MD Unavailable [phone] Tavia Wyatt MD Unavailable [phone] Johnny Murillo MD Unavailable [phone] Erica Farrell APRN ASSISTANT PROFESSOR OF BIOCHEMISTRY Unavailable Teresita Bean [facility] Unavailable Tavia Wyatt MD Unavailable [phone] Diana Desir [facility] Unavailable [phone] Rich Barrett MD Unavailable Neil Kent MD Unavailable Roney Story DPM Unavailable Erica Farrell APRN ASSISTANT PROFESSOR OF BIOCHEMISTRY Unavailable Diana Desir [facility] Unavailable [phone] Jelena David OD Unavailable Galo Burrell MD Unavailable Unavailable Livan Sharif MD Unavailable Livan Sharif MD Unavailable + Catherine Cm MD Unavailable + Valery Veronica PA-C Unavailable [phone] Catherine Cm MD Unavailable + Johnny Murillo MD Unavailable [phone] Brea Quinn APRN ASSISTANT PROFESSOR OF BIOCHEMISTRY Unavailable [phone] Brea Quinn SENIOR RESEARCH PROJECT MANAGER ASSISTANT PROFESSOR OF BIOCHEMISTRY Unavailable [phone] Jose Francisco Johnson MD Unavailable Livan Sharif MD Unavailable Catherine Cm MD Unavailable + Sydnie Martinez RN Unavailable Unavailable Alfonso Renteria MD Unavailable [phone] Esha Grimm PA-C Primary Care Provider Cheng Todd PA-C Unavailable [phone] Radha Lomeli SENIOR RESEARCH PROJECT MANAGER ASSISTANT PROFESSOR OF BIOCHEMISTRY Unavailable Jelena David OD Unavailable [phone] Pao Joseph RN Unavailable Unavailable Esha Grimm PA-C Unavailable [phone] Valery Veronica PA-C Unavailable Rey Tay [...] Man PA-C Unavailable Jelena David OD Unavailable Madeline Fabiano Gabo PERFORMING ARTS TECHNICIANS Unavailable Encounter Details Date Type Department Care Team (Late st Contact Info) Description 04/25/2020 MyC Medical Advice [facility] [address] [place] [phone] Rakesh Cid PA-C [address] [place] [address] Social History Tobacco Use Types Packs/Day Years [...] CDT Legal Sex Female 4:13 AM SALESPERSON FLOWERS Gender Identity Female 03/02/2021 5:45 PM CDT [...] Description 12/19/2024 2:00 PM CDT Office Visit [facility] [address] [place] [phone] Lauren Claudio PA-C [address] [place], [place] [phone] 12/26/2024 7:30 AM CDT Office Visit [address] [address] Neil Kent MD [address] [place] [address] 04/16/2025 11:00 AM CDT Virtual Visit [facility] [place] [address] [facility] 4th [place] [phone] Meredith Carrera PA-C [address] [place] [address] [phone] documented as of this encounter Visit Diagnoses Not on filedocumented in this encounter Additional Health Concerns Infection Onset Date Last Indicated Resolved Time Rule Out COVID-19 07/30/2020 07/30/2020 07/30/2020 7:11 PM SALESPERSON FLOWERS Rule Out COVID-19 08/30/2020 08/30/2020 08/30/2020 5:05 PM SALESPERSON FLOWERS Rule Out COVID-19 09/24/2020 09/24/2020 09/24/2020 9:24 AM CDT Rule Out COVID-19 11/05/2020 11/05/2020 11/06/2020 1:09 PM CDT Rule Out COVID-19 05/11/2021 05/11/2021 05/13/2021 10:18 AM CDT Rule Out COVID-19 07/13/2021 07/13/2021 07/14/2021 3:04 PM SALESPERSON FLOWERS Rule Out COVID-19 07/18/2021 07/18/2021 07/20/2021 1:56 PM SALESPERSON FLOWERS COVID-19 07/18/2021 07/18/2021 08/08/2021 11:3 9 PM SALESPERSON FLOWERS Rule Out COVID-19 12/18/2021 12/18/2021 12/19/2021 11:34 AM CDT Rule Out COVID-19 02/24/2022 02/24/2022 02/25/2022 1:08 PM CDT Rule Out COVID-19 04/26/2022 04/26/2022 04/26/2022 6:47 AM CDT Rule Out COVID-19 05/17/2022 05/17/2022 05/17/2022 10:20 PM SALESPERSON FLOWERS Rule Out COVID-19 06/09/2022 06/09/2022 06/09/2022 9:35 AM SALESPERSON FLOWERS COVID-19 06/09/2022 06/09/2022 06/30/2022 11:4 1 PM SALESPERSON FLOWERS Rule Out COVID-19 11/10/2022 11/10/2022 11/11/2022 12:17 [...] as of this encounter Care Teams Substation Operator Conversion Relationship Specialty Start Date End Date Rakesh Cid PA-C PCP - General Physician Vb Net Programmer - Medical 05/14/19 04/29/20 Marija Edgar APRN ASSISTANT PROFESSOR OF BIOCHEMISTRY [address] [place], [place] [phone] PCP - General Nurse Practitioner 04/30/20 04/14/23 Esha Grimm PA-C [address] [place] [address] PCP - General Family Medicine 05/04/23 Lita Oseguera Personal Advocate & Liaison (PAL) 02/28/20 03/27/23 Rakesh Cid PA-C [address] [place] [address] Assigned PCP 03/02/20 06/07/20 Lita Oseguera Personal Advocate & Liaison (PAL) 04/07/20 04/29/20 Chanelle Mccann APRN CNM [address] [place] [address] 200 [place] [address] Assigned OBGYN Provider 05/02/2005/09 Lesley Guillermo W Community Health Worker 05/30/2005/12 Kyara De La Fuente, RN Specialty Telephone Claims Representative Neurology 06/04/20 03/05/21 Marija Edgar APRN ASSISTANT PROFESSOR OF BIOCHEMISTRY [address] [place] [address] Assigned PCP 06/08/20 04/29/23 Mynor Broussard MD 6363 [facility] 500 [place] [address] Assigned Surgical Provider 06/01/20 11/28/21 Keisha Dotson MD 909 [place] [address] Assigned Neuroscience Provider 06/04/20 04/01/23 Mary Mejia Financial Resource Worker 08/07/20 08/21/20 Stacey Briones, [facility] Lead Telephone Claims Representative Primary Care - CC 08/11/2012/30 Lesley [...] 02/09/21 Diana Desir, [facility]3 [place], [place] 10[address]16 Pharmacist Pharmacist 04/17/21 Rain Galaviz PA-C [address] [place] [address] [address] [place] [place], [place] [phone] Physician Vb Net Programmer Dermatology 04/28/21 Summer Lara MD [address] [place] [address] [phone] Assigned OBGYN Provider 05/10/2105/23 Summer Lara MD [address] [place] [address] [phone] Assigned OBGYN Provider 05/31/21 2 Summer Lara MD [address] [place] [address] 734754 Assigned OBGYN Provider 05/24/2105/30 Tavia Wyatt MD [address] [place] [address] Dermatology 07/14/21 Johnny Murillo MD [facility] S [facility] [address] [place] [address] Assigned Musculoskeletal Provider 08/30/21 03/17/22 Erica Farrell APRN ASSISTANT PROFESSOR OF BIOCHEMISTRY 6405 [facility] [address] [place] [address] Nurse Practitioner Cardiovascular Disease 09/09/21 Teresita Bean [facility] [address] [place], [place] [phone] Pharmacist Pharmacist 09/24/21 09/29/21 Tavia Wyatt MD [facility] [place] [address] Assigned Surgical Provider 11/29/21 05/07/22 Diana Desir, [facility] [place] [address] Assigned MTM Pharmacist 01/02/22 Rich Barrett MD [facility] [place] [address] Physician Ophthalmology 01/21/22 Neil Kent MD 500 [place] [address] Dermatology 02/24/22 Roney Story DPM 6[address]38 [facility] [address] [place], [place] 143067 Assigned Musculoskeletal Provider 03/20/22 08/13/22 Erica Farrell APRN ASSISTANT PROFESSOR OF BIOCHEMISTRY [address]00 [place] [address] Assigned Heart and Vascular Provider 04/03/22 04/16/22 [facility] [address] [place] [address] Assigned MTM Pharmacist 04/07/22 Jelena David OD [address] [place] [address] Assigned Surgical Provider 05/08/22 10/08/22 Galo Burrell MD Assigned Heart and Vascular Provider 04/17/22 06/11/22 Livan Sharif MD [address] [address] [place] 118065 Cardiovascular Disease 05/14/22 Livan Sharif MD [address] [place] [address] [place] [address] Assigned Heart and Vascular Provider 06/12/22 07/23/22 Catherine Cm MD [address] [place] [address] Cardiovascular Disease 07/21/22 Valery Veronica PA-C 909 [place] [address] Physician Vb Net Programmer Dermatology 07/21/22 Catherine Cm MD 6405 [facility] S [address] [place] [address] Assigned Heart and Vascular Provider 07/24/22 11/05/22 Johnny Murillo MD [facility] [address] [address] Assigned Musculoskeletal Provider 08/14/22 10/08/22 Brea Quinn APRN ASSISTANT PROFESSOR OF BIOCHEMISTRY [address] [place] [address] 979455 Nurse Practitioner Dermatology 09/21/22 Brea Quinn APRN ASSISTANT PROFESSOR OF BIOCHEMISTRY [address] [place] [address] [place] [address] Assigned Surgical Provider 10/09/22 05/01/24 [place] [address] [place], [place] [address] [address] Assigned Musculoskeletal Provider 10/09/22 05/01/24 Livan Sharif MD [address] [place] [address] Assigned Heart and Vascular Provider 11/06/22 11/12/22 Catherine Cm MD [address] [place] [address] Assigned Heart and Vascular Provider 11/13/22 05/27/23 Sydnie Martinez RN Personal Advocate & Liaison (PAL) Family Medicine 03/28/23 07/31/23 Alfonso Renteria MD [address] [facility] 200 [place] [address] Assigned Neuroscience Provider 04/02/23 09/29/24 Cheng Todd PA-C [address] [place] [address] [phone] Assigned PCP 04/30/23 07/15/23 Radha Lomeli APRN ASSISTANT PROFESSOR OF BIOCHEMISTRY [address] [place] [address] Assigned Heart and Vascular Provider 05/28/23 11/29/24 Jelena David OD [address] [place] [address] Ophthalmology 06/15/23 Pao Joseph, VJ Personal Advocate & Liaison (PAL) Nurse 08/01/23 11/07/23 Esha Grimm PA-C [address] [place] [phone] Assigned PCP 07/16/23 Valery Veronica PA-C [address] [place] [address] 055055 Physician Vb Net Programmer Dermatology 09/19/23 Rey aTy MD [address] [place] [address] 554075 MD Gastroenterology 09/20/23 Rocky Zepeda DO [address] [place] [address] 887285 Physician Gastroenterology 09/20/23 Philip Dumont MD 6 [place] [address] Physician Ophthalmology 09/22/23 Meredith Carrera PA-C [address] [place] [address] 235225 Assigned Gastroenterology Provider 11/01/23 Neil Kent MD [address] [place] [address] Dermatology 11/02/23 [place] [address] [facility] [address] Neurological Surgery 12/26/23 Audrey Waite PA-C [address] [place] [address] Physician Vb Net Programmer Dermatology 02/28/24 Valery Veronica PA-C 743125 [place] [address] Physician Vb Net Programmer Dermatology 04/10/24 Herminia Hatch MD [facility]5 [place], [place] 23847125 Assigned Rheumatology Provider 07/02/24 Jelena David OD [facility] [place] [address] Ophthalmology 08/30/24 [place] [address] [place] [address] Assigned Neuroscience Provider 09/30/24 Maru Man PA-C [address] [place] [address] Physician Vb Net Programmer Dermatology 10/03/24 Maru Man PA-C [address] [place] [address] Physician Vb Net Programmer Dermatology 10/22/24 Jelena David OD [address] [place] [address] [place] [address] Assigned Surgical Provider 10/31/24 Fabiano Correa, BRYCE [address] [place] [address] Assigned Heart and Vascular Provider 11/30/24 documented as of this encounter
--- OUTSIDE RECORDS SUMMARY | 2024-12-17 21:41 | XMS_ITS | Encounter Summary ---
Author Organization [facility] Address [address] [place] [address] Care Team Providers Care Nut Culler Name Role Phone Lita Oseguera Unavailable Unavailable Marija Edgar APRN HEALTH TECHNICIAN HEARING Primary Care Provider + Marija Edgar APRN HEALTH TECHNICIAN HEARING Unavailable [phone] Mynor Broussard MD Unavailable [phone] Keisha Dotson MD Unavailable Galo Burrell MD Unavailable Unavailable Diana Desir [facility] Unavailable Rain Galaviz PA-C Unavailable Summer Lara MD Unavailable [phone] Tavia Wyatt MD Unavailable Johnny Murillo MD Unavailable Erica Farrell APRN HEALTH TECHNICIAN HEARING Unavailable Teresita Bean [facility] Unavailable [phone] Tavia Wyatt MD Unavailable Diana Desir [facility] Unavailable Rich Barrett MD Unavailable [phone] Neil Kent MD Unavailable Roney Story DPM Unavailable Erica Farrell NURSING ADMIN HEALTH TECHNICIAN HEARING Unavailable Diana Desir [facility] Unavailable [phone] Jelena David OD Unavailable [phone] Galo Burrell MD Unavailable Unavailable Livan Sharif MD Unavailable + Livan Sharif MD Unavailable + Catherine Cm MD Unavailable + Valery Veronica PA-C Unavailable [phone] Catherine Cm MD Unavailable + Johnny Murillo MD Unavailable [phone] Brea Quinn NURSING ADMIN HEALTH TECHNICIAN HEARING Unavailable [phone] Brea Quinn NURSING ADMIN HEALTH TECHNICIAN HEARING Unavailable [phone] Jose Francisco Johnson MD Unavailable Livan Sharif MD Unavailable + IsCatherine hobbs MD Unavailable + Sydnie Martinez RN Unavailable Unavailable Alfonso Renteria MD Unavailable Esha Grimm-C Primary Care Provider Cheng Todd PA-C Unavailable Radha Lomeli NURSING ADMIN HEALTH TECHNICIAN HEARING Unavailable [phone] Jelena David OD Unavailable Pao Joseph RN Unavailable Unavailable Esha Grimm-C Unavailable [phone] JeremíasValery damon PA-C Unavailable [phone] Rey Tay MD Unavailable Rocky Zepeda DO Unavailable Philip Dumont MD Unavailable Meredith Carrera PA-C Unavailable [phone] Neil Kent MD Unavailable Juan Pablo Emmanuel MD Unavailable Audrey Waite PA-C Unavailable [phone] Valery Veronica PA-C Unavailable [phone] Herminia Hatch MD Unavailable Jelena David OD Unavailable [phone] Juan Pablo Emmanuel MD Unavailable Maru Man-C Unavailable [phone] Maru Man-C Unavailable [phone] Jelena David OD Unavailable [phone] Fabiano Correa NP Unavailable Encounter Details Date Type Department Care Team (Late st Contact Info) Description 06/01/2021 [facility] [address] [address] Diana Desir, [facility] [address] [place] [address] Social History Tobacco Use Types Packs/Day Years [...] Date Recorded PHQ-2 Score 0 04/02/2021 [facility] [place] of Occupat ional Health - Occupational Stress [...] in a usp (including now)? No 08/11/2020 [place] Depression Scale Answer Date Recorded [place] [...] PM CDT Legal Sex Female 4:13 AM OPERATIONAL ASSISTANT Gender Identity Female 03/02/2021 5:45 PM CDT Sexual Orientation Straight 02/28/2020 12 :51 AM CDT COVID-19 Exposure Response Date Recorded In the last month, have you been in contact with someone who was confirmed or suspected to have Coronavirus / COVID-19? No / Unsure 05/11/2021 4:19 PM CDT documented as of this encounter Miscellaneous Notes * Telephone Encounter - Diana Desir, [facility] - 06/01/2021 3:43 PM CST Called patient and reassured 50 mg dose increase in sertraline is typical and okay to do. She will closely monitor changes in mental health over next couple weeks. Answered all questions. Diana Desir, PharmD Medication Therapy Management Provider, [facility] Pager: [phone] ATIONAL ASSISTANT documented in this encounter Plan of Treatment Upcoming Encounters Date Type Department Care Team (Late st Contact Info) Description 12/19/2024 2:00 PM CDT Office Visit [facility] [address] [place] [phone] Lauren Claudio PA-C [address] [place] [address] 12/26/2024 7:30 AM CDT Office Visit [facility] [address] [phone] Neil Kent MD [address] [place] [address] 611515 04/16/2025 11:00 AM CDT Virtual Visit [facility] [address] 4th [place] [phone] Meredith Carrera PA-C [address] [place] [address] documented as of this encounter Visit Diagnoses Not on filedocumented in this encounter Additional Health Concerns Infection Onset Date Last Indicated Resolved Time Rule Out COVID-19 07/13/2021 07/13/2021 07/14/2021 3:04 PM OPERATIONAL ASSISTANT Rule Out COVID-19 07/18/2021 07/18/2021 07/20/2021 1:56 PM OPERATIONAL ASSISTANT COVID-19 07/18/2021 07/18/2021 08/08/2021 11:3 9 PM OPERATIONAL ASSISTANT Rule Out COVID-19 12/18/2021 12/18/2021 12/19/2021 11:34 AM CDT Rule Out COVID-19 02/24/2022 02/24/2022 02/25/2022 1:08 PM CDT Rule Out COVID-19 04/26/2022 04/26/2022 04/26/2022 6:47 AM CDT Rule Out COVID-19 05/17/2022 05/17/2022 05/17/2022 10:20 PM OPERATIONAL ASSISTANT Rule Out COVID-19 06/09/2022 06/09/2022 06/09/2022 9:35 AM OPERATIONAL ASSISTANT COVID-19 06/09/2022 06/09/2022 06/30/2022 11:4 1 PM OPERATIONAL ASSISTANT Rule Out COVID-19 11/10/2022 11/10/2022 11/11/2022 [...] as of this encounter Care Teams Nut Culler Relationship Specialty Start Date End Date Marija Edgar APRN CNP PCP - General Nurse Practitioner 04/30/20 04/14/23 Esha Grimm PA-C [address] [place] [phone] PCP - General Family Medicine 05/04/23 Lita Oseguera Personal Advocate & Liaison (PAL) 02/28/20 03/27/23 Marija Edgar APRN HEALTH TECHNICIAN HEARING Assigned PCP 06/08/20 04/29/23 Mynor Broussard MD 6363 [facility] 500 [place] [address] Assigned Surgical Provider 06/01/20 11/28/21 Keisha Dotson MD 909 [place], [place] 758945 Assigned Neuroscience Provider 06/04/20 04/01/23 Galo Burrell MD Assigned Heart and Vascular Provider 10/05/20 04/02/22 Diana Desir, [facility] [address] [place] [address] Pharmacist Pharmacist 04/17/21 Rain Galaviz PA-C [address] [place] [address] [address] [place] [address] Physician Machine Setter Automatic Dermatology 04/28/21 Summer Lara MD [address] [place] [address] Assigned OBGYN Provider 05/31/21 2 Tavia Wyatt MD [address] [place], [place] [address] Dermatology 07/14/21 Johnny Murillo MD [address] [place] [address] Assigned Musculoskeletal Provider 08/30/21 03/17/22 Erica Farrell APRN HEALTH TECHNICIAN HEARING 6405 [facility] S [address] [place] [address] Nurse Practitioner Cardiovascular Disease 09/09/21 Teresita Bean, [facility] [address] [place] [phone] Pharmacist Pharmacist 09/24/21 09/29/21 Tavia Wyatt MD [address] [place], [place] 411060 Assigned Surgical Provider 11/29/21 05/07/22 [facility] 3033 [place] [address] Assigned MTM Pharmacist 01/02/22 Rich Barrett MD 3033 [place] [address] Physician Ophthalmology 01/21/22 Neil Kent MD 500 [place] [address] Dermatology 02/24/22 [place] [address] [place] [address] Assigned Musculoskeletal Provider 03/20/22 08/13/22 Erica Farrell APRN HEALTH TECHNICIAN HEARING 1700 [place] [address] Assigned Heart and Vascular Provider 04/03/22 04/16/22 Diana Desir, [facility] [address] [place], [place] 053556 Assigned MTM Pharmacist 04/07/22 Jelena David OD 3305 [facility] [place] [address] Assigned Surgical Provider 05/08/22 10/08/22 Galo Burrell MD Assigned Heart and Vascular Provider 04/17/22 06/11/22 Livan Sharif MD [address] [place] [address] Cardiovascular Disease 05/14/22 Livan Sharif MD [address] [place] [address] Assigned Heart and Vascular Provider 06/12/22 07/23/22 Catherine Cm MD [address] [place] [address] Cardiovascular Disease 07/21/22 Valery Veronica, PAUcheC [address] [place] [address] Physician Machine Setter Automatic Dermatology 07/21/22 Catherine Cm MD 6405 [facility] [address] [place] [address] Assigned Heart and Vascular Provider 07/24/22 11/05/22 Johnny Murillo MD [address] [address] Assigned Musculoskeletal Provider 08/14/22 10/08/22 Brea Quinn APRN HEALTH TECHNICIAN HEARING [address] [place] [address] Nurse Practitioner Dermatology 09/21/22 Brea Quinn APRN HEALTH TECHNICIAN HEARING [address] [place] [address] Assigned Surgical Provider 10/09/22 05/01/24 [place] [address] [place] [address] Assigned Musculoskeletal Provider 10/09/22 05/01/24 Livan Sharif MD [address] [facility] [address] [place] [address] Assigned Heart and Vascular Provider 11/06/22 11/12/22 Catherine Cm MD [address] [facility] [address] [place] [address] Assigned Heart and Vascular Provider 11/13/22 05/27/23 Sydnie Martinez RN Personal Advocate & Liaison (PAL) Family Medicine 03/28/23 07/31/23 Alfonso Renteria MD [address] [facility] [address] 200 [place] [address] Assigned Neuroscience Provider 04/02/23 09/29/24 Cheng Todd PA-C [address] [place] [address] Assigned PCP 04/30/23 07/15/23 Radha Lomeli APRN HEALTH TECHNICIAN HEARING 6405 [facility] [address] [place] [address] Assigned Heart and Vascular Provider 05/28/23 11/29/24 Jelena David OD 3305 [facility] [place] [address] Ophthalmology 06/15/23 Pao Joseph, VJ Personal Advocate & Liaison (PAL) Nurse 08/01/23 11/07/23 Esha Grimm PA-C [address] [place] [phone] Assigned PCP 07/16/23 Valery Veronica PA-C [address] [place] [address] 128295 Physician Machine Setter Automatic Dermatology 09/19/23 Rey Tay MD 909 [place] [address] Gastroenterology 09/20/23 Rocky Zepeda DO [address] [place] [address] Physician Gastroenterology 09/20/23 Philip Dumont MD [address] [place] [address] Physician Ophthalmology 09/22/23 Meredith Carrera PA-C [address] [place] [address] Assigned Gastroenterology Provider 11/01/23 Neil Kent MD [address] [place] [address] MD Dermatology 11/02/23 [place] [address] [address] Neurological Surgery 12/26/23 Audrey Waite PA-C [address] [place] [address] Physician Machine Setter Automatic Dermatology 02/28/24 Valery Veronica PA-C 403483 [address] [place] [address] Physician Machine Setter Automatic Dermatology 04/10/24 Herminia Hatch MD [address] [place] [address] [id number] Assigned Rheumatology Provider 07/02/24 [place] [address] [place] [address] [place] [address] Ophthalmology 08/30/24 [place] [address] [address] [place] [address] Assigned Neuroscience Provider 09/30/24 Maru Man PA-C [address] [place] [address] Physician Machine Setter Automatic Dermatology 10/03/24 Maru Man PA-C [address] [place] [address] Physician Machine Setter Automatic Dermatology 10/22/24 Jelena David OD 3305 [facility] [place] [address] Assigned Surgical Provider 10/31/24 Fabiano Correa NP [address] [place] [address] Assigned Heart and Vascular Provider 11/30/24 documented as of this encounter
--- OUTSIDE RECORDS SUMMARY | 2024-12-17 21:41 | XMS_ITS | Encounter Summary ---
Author Organization [facility] Address [address] [place] [address] Care Team Providers Care Environmental Conservation Officer Name Role Phone Lita Oseguera Unavailable Unavailable Marija Edgar APRN TAB CARD PRESS OPERATOR Primary Care Provider + Marija Edgar APRN TAB CARD PRESS OPERATOR Unavailable Mynor Broussard MD Unavailable [phone] Keisha Dotson MD Unavailable Galo Burrell MD Unavailable Unavailable Diana Desir [facility] Unavailable [phone] Rain Galaviz PA-C Unavailable Summer Lara MD Unavailable [phone] Tavia Wyatt MD Unavailable Johnny Murillo MD Unavailable [phone] Erica Farrell APRN TAB CARD PRESS OPERATOR Unavailable Teresita Bean [facility] Unavailable Tavia Wyatt MD Unavailable Diana Desir [facility] Unavailable [phone] Rich Barrett MD Unavailable [phone] Neil Kent MD Unavailable Roney Story DPM Unavailable Erica Farrell CUSTODIAL ENGINEER TAB CARD PRESS OPERATOR Unavailable Diana Desir [facility] Unavailable [phone] Jelena David OD Unavailable [phone] Galo Burrell MD Unavailable Unavailable Livan Sharif MD Unavailable + Livan Sharif MD Unavailable + Catherine Cm MD Unavailable + Valery Veronica PA-C Unavailable [phone] Catherine Cm MD Unavailable + Johnny Murillo MD Unavailable [phone] Brea Quinn CUSTODIAL ENGINEER TAB CARD PRESS OPERATOR Unavailable [phone] Brea Quinn CUSTODIAL ENGINEER TAB CARD PRESS OPERATOR Unavailable [phone] Jose Francisco Johnson MD Unavailable Livan Sharif MD Unavailable + IsCatherine hobbs MD Unavailable + Sydnie Martinez RN Unavailable Unavailable Alfonso Renteria MD Unavailable Esha Grimm-C Primary Care Provider Cheng Todd PA-C Unavailable Radha Lomeli CUSTODIAL ENGINEER TAB CARD PRESS OPERATOR Unavailable [phone] Jelena Dvaid OD Unavailable Pao Joseph RN Unavailable Unavailable Esha Grimm-C Unavailable [phone] JeremíasValery damon PA-C Unavailable [phone] Rey Tay MD Unavailable Rocky Zepeda DO Unavailable Philip Dumont MD Unavailable [phone] Meredith Carrera PA-C Unavailable [phone] Neil Kent MD Unavailable Juan Pablo Emmanuel MD Unavailable [phone] Audrey Waite PA-C Unavailable [phone] Valery Veronica PA-C Unavailable [phone] Herminia Hatch MD Unavailable Jelena David OD Unavailable Juan Pablo Emmanuel MD Unavailable [phone] Maru Man-C Unavailable [phone] Maru ManC Unavailable [phone] Jelena David OD Unavailable Fabiano Correa NP Unavailable [phone] Encounter Details Date Type Department Care Team (Late st Contact Info) Description 07/14/2021 [facility] Medical Advice [address] [phone] Lauren Gan, RN Social History [...] Answer Date Recorded PHQ-2 Score 0 04/02/2021 [facility] of Occupat ional [...] in a long-term (including now)? No 08/11/2020 [place] Depression Scale Answer Date Recorded [place] Depression Score 5 01/14/2021 Last EPDS Self Harm Result Not on file 01/14 Education Answer Date Recorded What is the highest level of school you have completed or the highest degree you have received? 12th grade 08/07/2020 Comments No Sex and Gender Information Value Date Recorded Sex Assigned at Female 03/02/2021 5:45 PM CDT Legal Sex Female 4:13 AM GIFT CONSULTANT Gender Identity Female 03/02/2021 5:45 PM CDT Sexual Orientation Straight 02/28/2020 12 :51 AM CDT COVID-19 Exposure Response Date Recorded In the last month, have you been in contact with someone who was confirmed or suspected to have Coronavirus / COVID-19? Yes 07/15/2021 12:15 PM GIFT CONSULTANT documented as of this encounter Plan of Treatment Upcoming Encounters Date Type Department Care Team (Late st Contact Info) Description 12/19/2024 2:00 PM CDT Office Visit [address] [phone] Lauren Claudio PA-C [address] [place] [address] 12/26/2024 7:30 AM CDT Office Visit [facility] [address] [phone] Neil Kent MD [address] [place] [address] 04/16/2025 11:00 AM CDT Virtual Visit [facility] [place] [address] [facility] 4th [place] [phone] Meredith Carrera PA-C [address] [place] [address] documented as of this encounter Visit Diagnoses Not on filedocumented in this encounter Additional Health Concerns Infection Onset Date Last Indicated Resolved Time Rule Out COVID-19 07/13/2021 07/13/2021 07/14/2021 3:04 PM GIFT CONSULTANT Rule Out COVID-19 07/18/2021 07/18/2021 07/20/2021 1:56 PM GIFT CONSULTANT COVID-19 07/18/2021 07/18/2021 08/08/2021 11:3 9 PM GIFT CONSULTANT Rule Out COVID-19 12/18/2021 12/18/2021 12/19/2021 11:34 AM CDT Rule Out COVID-19 02/24/2022 02/24/2022 02/25/2022 1:08 PM CDT Rule Out COVID-19 04/26/2022 04/26/2022 04/26/2022 6:47 AM CDT Rule Out COVID-19 05/17/2022 05/17/2022 05/17/2022 10:20 PM GIFT CONSULTANT Rule Out COVID-19 06/09/2022 06/09/2022 06/09/2022 9:35 AM GIFT CONSULTANT COVID-19 06/09/2022 06/09/2022 06/30/2022 11:4 1 PM GIFT CONSULTANT Rule Out COVID-19 11/10/2022 11/10/2022 11/11/2022 [...] as of this encounter Care Teams Environmental Conservation Officer Relationship Specialty Start Date End Date Marija Edgar APRN TAB CARD PRESS OPERATOR PCP - General Nurse Practitioner 04/30/20 04/14/23 Esha Grimm PA-C [address] [place] [phone] PCP - General Family Medicine 05/04/23 Lita Oseguera Personal Advocate & Liaison (PAL) 02/28/20 03/27/23 Marija Edgar APRN TAB CARD PRESS OPERATOR Assigned PCP 06/08/20 04/29/23 Mynor Broussard MD [address] [address] Assigned Surgical Provider 06/01/20 11/28/21 Keisha Dotson MD 909 [place] [address] Assigned Neuroscience Provider 06/04/20 04/01/23 Galo Burrell MD Assigned Heart and Vascular Provider 10/05/20 04/02/22 [facility] [address] [place] [address] Pharmacist Pharmacist 04/17/21 Rain Galaviz PA-C [address] [place] [address] [address] [place] [address] Physician Bulk Filler Dermatology 04/28/21 Summer Lara MD [address] [place], [place] [address]E [place], [place] [address] Assigned OBGYN Provider 05/31/21 9 2 Tavia Wyatt MD [address] [facility] [place] [place] [address] Dermatology 07/14/21 Johnny Murillo MD [address] [place] [address] Assigned Musculoskeletal Provider 08/30/21 03/17/22 Erica Farrell APRN TAB CARD PRESS OPERATOR [address] [facility] [address] [place] [address] Nurse Practitioner Cardiovascular Disease 09/09/21 Teresita Bean [facility] [address] [place] [phone] Pharmacist Pharmacist 09/24/21 09/29/21 Tavia Wyatt MD [address] [place] [address] Assigned Surgical Provider 11/29/21 05/07/22 Diana Desir, [facility] [place] [address] Assigned MTM Pharmacist 01/02/22 Rich Barrett MD [facility] [place] [address] Physician Ophthalmology 01/21/22 Neil Kent MD [address] [place], [place] [phone] Dermatology 02/24/22 Roney Story DPM [address] [facility] [address] [place], [place] [address] Assigned Musculoskeletal Provider 03/20/22 08/13/22 Erica Farrell APRN TAB CARD PRESS OPERATOR [address] [place] [address] Assigned Heart and Vascular Provider 04/03/22 04/16/22 Diana Desir, [facility] [place] [address] Assigned MTM Pharmacist 04/07/22 Frankie Jelena [place] [address] [facility] [address] Assigned Surgical Provider 05/08/22 10/08/22 Galo Burrell MD Assigned Heart and Vascular Provider 04/17/22 06/11/22 Livan Sharif MD [address] [place] [address] Cardiovascular Disease 05/14/22 Livan Sharif MD [address] [place] [address] Assigned Heart and Vascular Provider 06/12/22 07/23/22 Catherine Cm MD [address] [place], [place] 2737[address] Cardiovascular Disease 07/21/22 Valery Veronica, PA-C [address] [place] [address] Physician Bulk Filler Dermatology 07/21/22 Catherine Cm MD [address] [place] [address] Assigned Heart and Vascular Provider 07/24/22 11/05/22 Johnny Murillo MD [address] [facility] [address] [place] [address] Assigned Musculoskeletal Provider 08/14/22 10/08/22 Brea Quinn APRN TAB CARD PRESS OPERATOR 500 [place] [address] Nurse Practitioner Dermatology 09/21/22 Brea Quinn APRN TAB CARD PRESS OPERATOR [address] [facility] [place] [address] Assigned Surgical Provider 10/09/22 05/01/24 [place] [address] [facility] [address] [place] [address] Assigned Musculoskeletal Provider 10/09/22 05/01/24 Livan Sharif MD [address] [facility] [address] [place] [address] Assigned Heart and Vascular Provider 11/06/22 11/12/22 Catherine Cm MD [address] [facility] [address] [place] [address] Assigned Heart and Vascular Provider 11/13/22 05/27/23 Sydnie Martinez RN Personal Advocate & Liaison (PAL) Family Medicine 03/28/23 07/31/23 Alfonso Renteria MD [address] [facility] 200 [place] [address] Assigned Neuroscience Provider 04/02/23 09/29/24 Cheng Todd PA-C [address] [place] [address] Assigned PCP 04/30/23 07/15/23 Radha Lomeli APRN TAB CARD PRESS OPERATOR [address] [place] [address] Assigned Heart and Vascular Provider 05/28/23 11/29/24 Jelena David OD [address] [facility] [address] MD Ophthalmology 06/15/23 Pao Joseph, VJ Personal Advocate & Liaison (PAL) Nurse 08/01/23 11/07/23 Esha Grimm PA-C [address] [place] [phone] Assigned PCP 07/16/23 Valery Veroinca PA-C [address] [place] [address] Physician Bulk Filler Dermatology 09/19/23 Rey Tay MD [address] [place] [address] Gastroenterology 09/20/23 Rocky Zepeda DO [address] [place] [address] 003195 Physician Gastroenterology 09/20/23 Philip Dumont MD [address] [place] [address] Physician Ophthalmology 09/22/23 Meredith Carrera PA-C [address] [place] [address] [phone] Assigned Gastroenterology Provider 11/01/23 Neil Kent MD [address] [place] [address] Dermatology 11/02/23 [place] [address] [place] [address] Neurological Surgery 12/26/23 Audrey Waite PA-C [address] [place] [address] Physician Bulk Filler Dermatology 02/28/24 Valery Veronica PA-C 7[address]376 [address] [address] Physician Bulk Filler Dermatology 04/10/24 Herminia Hatch MD [address] [place] [address] Assigned Rheumatology Provider 07/02/24 Jelena David OD [address] [place] [place] [address] [place] [address] Ophthalmology 08/30/24 [place] [address] [place] [address] Assigned Neuroscience Provider 09/30/24 Maru Man PA-C [address] [place] [address] Physician Bulk Filler Dermatology 10/03/24 Maru Man PA-C [address] [place] [address] Physician Bulk Filler Dermatology 10/22/24 Jelena David OD [address] [facility] [place] [address] Assigned Surgical Provider 10/31/24 Fabiano Correa NP [address] [place] [address] Assigned Heart and Vascular Provider 11/30/24 documented as of this encounter
--- OUTSIDE RECORDS SUMMARY | 2024-12-17 21:41 | XMS_ITS | Clinical Summary ---
Author Organization [facility] Address [facility] [place] [address] Care Team Providers Care Mailroom Associate Name Role Phone Pcp, No Primary Care Provider Unavailabl e Clinic, No Pcp Or Unavailable Unavailable Allergies Active Allergy Reactions Criticality Noted Date Comments Vancomycin Other - Describe In Comment Field Medications biotin-silicon uitz-K-gyebafze 3,000 mcg -100 mg-50 mg TbER Take [...] on file Legal Sex Female 2:29 PM FABRICATION LEAD Gender Identity Not on file Sexual Orientation Not on file Obstetrics History Last Filed Vital Signs Vital Sign Reading Time Taken Comments Blood Pressure 111/58 08/28/2024 3:42 PM FABRICATION LEAD Pulse 72 08/28/2024 3:42 PM FABRICATION LEAD Temperature 36.4 C (97.5 F) 08/28/2024 3:42 PM FABRICATION LEAD Respiratory Rate 15 08/28/2024 3:42 PM FABRICATION LEAD Oxygen Saturation 99% 08/28/2024 3:42 PM FABRICATION LEAD Inhaled Oxygen Concentration - - Weight 90.7 kg (200 lb) 08/28/2024 3:42 PM FABRICATION LEAD Height 166.5 cm (5' 5.55) 08/31/2018 11:[address] Body Mass Index - - Plan of Treatment Health Maintenance Due Date Last Done Comments Tdap 2011 Depression screening for age 12+ 2012 HPV series for age 9-26 (1 - 3-dose series) 2015 Hepatitis B series for 19+ ( 1 of 3 - 19+ 3-dose series) 2019 BMI (ht and wt on same day) [...] Procedure Name Priority Date/Time Associated Diagnosis Comments ANTI HIV 1/2 Routine 08/28/2024 4:58 PM FABRICATION LEAD Routine screening for STI (sexually transmitted infection) ANTI HCV Routine 08/28/2024 4:58 PM FABRICATION LEAD Routine screening for STI (sexually transmitted infection) GC CHLAMYDIA TRACH PROBE Routine 08/28/2024 4:35 PM FABRICATION LEAD Routine screening for STI (sexually transmitted infection) from Last 3 Months or Most Recently Relevant to Health Maintenance Results * ANTI HCV [89538.2] (08/28/2024 4:58 PM FABRICATION LEAD) HEPATITIS C ANTIBODY NON-REACTI VE NON-REACT TAE [facility] Comment: HCV antibody was non-reactive. There is no laboratory evidence of HCV infection. In most cases, no further action is required. However, if recent HCV exposure is suspected, a test for HCV RNA (test code 52737) is suggested. For additional information please refer to http://DewMobile.MK2Media/faq/IZR79a2 (This link is being provided for informational/ educational purposes only.) Blood BLOOD SPECIMEN / Unknown 08/28/2024 4:58 PM FABRICATION LEAD 08/28/2024 4:58 PM FABRICATION LEAD Ernestina Toribio MD SEND OUTS Final Result Performing Organization Address City/[facility] Co de Phone Number Diligent Board Member Services [facility] [address] [place] [address], [facility] [address] [place] [address] * ANTI HIV 1/2 [70972.0] (08/28/2024 4:58 PM FABRICATION LEAD) [facility] HIV AG/AB, 4TH GEN NON-REACT TAE NON-REACT TAE [facility] Comment: HIV-1 antigen and HIV-1/HIV-2 antibodies [...] purpose. For additional information please refer to http://DewMobile.MK2Media/faq/ZYH662 (This link is being provided for informational/ educational purposes only.) The performance of this assay has not been clinically validated in patients less than 2 years old. Blood BLOOD SPECIMEN / Unknown 08/28/2024 4:58 PM FABRICATION LEAD 08/28/2024 4:58 PM FABRICATION LEAD us Ernestina Toribio MD SEND OUTS Final Result [facility] [address] [place] [address], [facility] [address] [place] [address] * Vaginal GC CHLAMYDIA TRACH PROBE (08/28/2024 4:35 PM FABRICATION LEAD) CHLAMYDIA PROBE Negative 11:45 AM FABRICATION LEAD [facility] N GONORRHOEAE PROBE Negative 08/29/2024 11:45 AM FABRICATION LEAD [facility] Other VAGINAL SWAB / Unknown Non-Blood / Unknown 08/28/2024 4:35 PM FABRICATION LEAD 08/28/2024 4:36 PM FABRICATION LEAD Ernestina Toribio MD MICROBIOLOGY Final Result [facility] [address] [place] [address], from Last 3 Months or Most Recently Relevant to Health Maintenance Insurance [facility] Care Teams Mailroom Associate Relationship Specialty Start Date End Date Pcp, No . PCP - General 03/25/24 Clinic, No Pcp Or . 03/25/24
--- OUTSIDE RECORDS SUMMARY | 2024-12-17 21:41 | XMS_ITS | Encounter Summary ---
Author Organization [facility] Address [address] [place] [address] Care Team Providers Care Gambling Broker Name Role Phone Rakesh Cid PA-C Unavailable [phone] Rakesh Cid PA-C Primary Care Provider [phone] Lita Oseguera Unavailable Unavailable Rakesh Cid PA-C Unavailable [phone] Isaura Lamar RN Unavailable Unavailable Lita Oseguera Unavailable Unavailable Marija dEgar APRN CORK INSULATOR Primary Care Provider + Chanelle Mccann APRN CN Unavailab le Lesley Guillermo CHKamryn Unavailable [phone] Kyara De La Fuente RN Unavailable [phone] Marija Edgar APRN CORK INSULATOR Unavailable [phone] Mynor Broussard MD Unavailable [phone] Keisha Dotson MD Unavailable [phone] Mary Mejia Unavailable Unavailable Stacey Briones CAMPAIGN DEVELOPER Unavailable [phone] Lesley Guillermo CHW Unavailable [phone] Mary Mejia Unavailable Unavailable Lita Oseguera Unavailable Unavailable Galo Burrell MD Unavailable Unavailable Cristina Wood Unavailable Eagle Lesley C [facility] Unavailable Meredith Bedoya Unavailable Unavailable Cristina Wood Unavailable Thang Diana [place] [facility] Unavailable [phone] Rain Galaviz-C Unavailable Summer Lara MD Unavailable [phone] Summer Lara MD Unavailable [phone] Summer Lara MD Unavailable [phone] Tavia Wyatt MD Unavailable [phone] Johnny Murillo MD Unavailable Erica Farrell APRN CORK INSULATOR Unavailable Teresita Bean [facility] Unavailable Tavia Wyatt MD Unavailable [phone] Diana Desir [facility] Unavailable [phone] Rich Barrett MD Unavailable [phone] Neil Kent MD Unavailable Roney Story DPM Unavailable Erica Farrell AIR DRIER CORK INSULATOR Unavailable Diana Desir [facility] Unavailable [phone] Jelena David OD Unavailable Galo Burrell MD Unavailable Unavailable Livan Sharif MD Unavailable + Livan Sharif MD Unavailable + Catherine Cm MD Unavailable + Valery Veronica-C Unavailable Catherine Cm MD Unavailable + Johnny Murillo MD Unavailable [phone] Brea Quinn AIR DRIER CORK INSULATOR Unavailable [phone] Brea Quinn AIR DRIER CORK INSULATOR Unavailable [phone] Jose Francisco Johnson MD Unavailable Livan Sharif MD Unavailable Catherine Cm MD Unavailable + Sydnie Martinez RN Unavailable Unavailable Alfonso Renteria MD Unavailable Esha Grimm PA-C Primary Care Provider Cheng Todd PA-C Unavailable Radha Lomeli AIR DRIER CORK INSULATOR Unavailable Jelena David OD Unavailable [phone] Pao Joseph RN Unavailable Unavailable Esha Grimm PA-C Unavailable [phone] Valery Veronica PA-C Unavailable [phone] Rey Tay MD Unavailable Rocky Zepeda DO Unavailable Philip Dumont MD Unavailable [phone] Meredith Carrera PA-C Unavailable [phone] Neil Kent MD Unavailable Juan Pablo Emmanuel MD Unavailable Audrey Waite PA-C Unavailable Valery Veronica PA-C Unavailable Herminia Hatch MD Unavailable Jelena David OD Unavailable Juan Pablo Emmanuel MD Unavailable Maru Man PA-C Unavailable [phone] Maru Man PA-C Unavailable [phone] Jelena David OD Unavailable [phone] Fabiano Correa CONTINUOUS MINING OPERATOR Unavailable [phone] Reason for Visit * Reason Onset Date Comments Appointment 02/13/2020 Anxiety Encounter Details Date Type Department Care Team (Late st Contact Info) Description 02/13/2020 [facility] [place] [facility] Adv[place] [address] [phone] Rakesh Cid PA-C [address] [place] [address] Appointment (Anxiety) Social History Tobacco [...] CDT Legal Sex Female 4:13 AM BRICK CARRIER Gender Identity Female 03/02/2021 5:45 PM CDT Sexual Orientation Straight 02/28/2020 12 :51 AM CDT documented as of this encounter Miscellaneous Notes * Telephone Encounter - Agatha Forrester RN - 02/15/2020 2:28 PM CDT [employer] armando message sent to patient to schedule a [...] Description 12/19/2024 2:00 PM CDT Office Visit [address] [phone] Lauren Claudio PA-C [address] [place] [address] 12/26/2024 7:30 AM CDT Office Visit [facility] [address] [phone] Neil Kent MD [address] [place] [address] [phone] 04/16/2025 11:00 AM CDT Virtual Visit [facility] [address] 4[address] [place] [phone] Meredith Carrera PA-C [address] [place] [address] documented as of this encounter Visit Diagnoses Not on filedocumented in this encounter Additional Health Concerns Infection Onset Date Last Indicated Resolved Time Rule Out COVID-19 07/30/2020 07/30/2020 07/30/2020 7:11 PM BRICK CARRIER Rule Out COVID-19 08/30/2020 08/30/2020 08/30/2020 5:05 PM BRICK CARRIER Rule Out COVID-19 09/24/2020 09/24/2020 09/24/2020 9:24 AM CDT Rule Out COVID-19 11/05/2020 11/05/2020 11/06/2020 1:09 PM CDT Rule Out COVID-19 05/11/2021 05/11/2021 05/13/2021 10:18 AM CDT Rule Out COVID-19 07/13/2021 07/13/2021 07/14/2021 3:04 PM BRICK CARRIER Rule Out COVID-19 07/18/2021 07/18/2021 07/20/2021 1:56 PM BRICK CARRIER COVID-19 07/18/2021 07/18/2021 08/08/2021 11:3 9 PM BRICK CARRIER Rule Out COVID-19 12/18/2021 12/18/2021 12/19/2021 11:34 AM CDT Rule Out COVID-19 02/24/2022 02/24/2022 02/25/2022 1:08 PM CDT Rule Out COVID-19 04/26/2022 04/26/2022 04/26/2022 6:47 AM CDT Rule Out COVID-19 05/17/2022 05/17/2022 05/17/2022 10:20 PM BRICK CARRIER Rule Out COVID-19 06/09/2022 06/09/2022 06/09/2022 9:35 AM BRICK CARRIER COVID-19 06/09/2022 06/09/2022 06/30/2022 11:4 1 PM BRICK CARRIER Rule Out COVID-19 11/10/2022 11/10/2022 11/11/2022 [...] Depression Total Score: 1 09/11/19 1:42 PM BRICK CARRIER documented as of this encounter Care Teams Gambling Broker Relationship Specialty Start Date End Date Rakesh Cid PA-C [address] [place] [address] PCP - General Physician Chart Calculator - Medical 05/14/19 04/29/20 Marija Edgar APRN CNP PCP - General Nurse Practitioner 04/30/20 04/14/23 Esha Grimm PA-C [address] [place] [phone] PCP - General Family Medicine 05/04/23 Rakesh Cid PA-C [address] [place] [address] Assigned PCP 05/06/19 03/01/20 Lita Oseguera Personal Advocate & Liaison (PAL) 02/28/20 03/27/23 Rakesh Cid PA-C [address] [place] [address] Assigned PCP 03/02/20 06/07/20 Isaura Lamar, RN Personal Advocate & Liaison (PAL) Family Practice 04/03/20 04/06/20 Lita Oseguera Personal Advocate & Liaison (PAL) 04/07/20 04/29/20 [place] [address] [place], [facility] [address] [place] [address] Assigned OBGYN Provider 05/02/2005/09 Lesley Guillermo, CHW Community Health Worker 05/30/2005/12 Kyara De La Fuente, RN Specialty Medical Research Tech Neurology 06/04/20 03/05/21 Marija Edgar APRN CORK INSULATOR Assigned PCP 06/08/20 04/29/23 Mynor Broussard MD [address] [facility] [address] [place], [place] [phone] Assigned Surgical Provider 06/01/20 11/28/21 Keisha Dotson MD [address] [place], [place] 594825 Assigned Neuroscience Provider 06/04/20 04/01/23 Mary Mejia Financial Resource Worker 08/07/20 08/21/20 Stacey Briones, [facility] Lead Medical Research Tech Primary Care - CC 08/11/2012/30 Lesley Guillermo, W Community Health Worker 08/11/2010/01 Mary Mejia Financial Resource Worker 09/02/20 10/06/20 Lita Oseguera Personal Advocate & Liaison (PAL) Family Medicine 09/10/20 09/21/20 Galo Burrell MD Assigned Heart and Vascular Provider 10/05/20 04/02/22 Cristina Wood Financial Resource Worker 10/07/20 10/14/20 Lesley Guillermo, [facility] Community Health Worker 10/23/2012/30 Meredith Bedoya Financial Resource Worker 10/23/20 11/23/20 Cristina Wood Financial Resource Worker 02/09/21 02/09/21 Diana Desir, [facility] [address] [place] [address] Pharmacist Pharmacist 04/17/21 Rain Galaviz PA-C [address] [place] [address] [address] [place], [place] [phone] Physician Chart Calculator Dermatology 04/28/21 Summer Lara MD [address] [place] [address] 255144 Assigned OBGYN Provider 05/10/2105/23 Summer Lara MD [address] [place] [address] [phone] Assigned OBGYN Provider 05/31/21 2 Summer Lara MD [address] [place] [address] [phone] Assigned OBGYN Provider 05/24/2105/30 Tavia Wyatt MD [address] [place] [address] Dermatology 07/14/21 Johnny Murillo MD [address] [place] [address] Assigned Musculoskeletal Provider 08/30/21 03/17/22 Erica Farrell APRN CORK INSULATOR [address] [facility] [address] [place] [address] Nurse Practitioner Cardiovascular Disease 09/09/21 [facility] [address] [facility] [place] [address] Pharmacist Pharmacist 09/24/21 09/29/21 Tavia Wyatt MD [address] [place] [address] Assigned Surgical Provider 11/29/21 05/07/22 [facility] [address] [place] [address] Assigned MTM Pharmacist 01/02/22 Rich Barrett MD [address] [place] [address] Physician Ophthalmology 01/21/22 Neil Kent MD 500 [place] [address] Dermatology 02/24/22 Roney Story DPM [address] [facility] [address] [place] [address] Assigned Musculoskeletal Provider 03/20/22 08/13/22 Erica Farrell APRN CORK INSULATOR [address] [place] [address] Assigned Heart and Vascular Provider 04/03/22 04/16/22 Diana Desir, [facility] [address] [place] [address] Assigned MTM Pharmacist 04/07/22 Jelena David OD [address] [facility] [place] [address] Assigned Surgical Provider 05/08/22 10/08/22 Galo Burrell MD Assigned Heart and Vascular Provider 04/17/22 06/11/22 Livan Sharif MD [address] [place] [address] Cardiovascular Disease 05/14/22 Livan Sharif MD [address] [place] [address] Assigned Heart and Vascular Provider 06/12/22 07/23/22 Catherine Cm MD [address] [place] [id number] Cardiovascular Disease 07/21/22 Valery Veronica PA-C [address]09 [place] [address] Physician Chart Calculator Dermatology 07/21/22 Catherine Cm MD [address] [place] 760095 Assigned Heart and Vascular Provider 07/24/22 11/05/22 Johnny Murillo MD [facility] [place] [address] Assigned Musculoskeletal Provider 08/14/22 10/08/22 Brea Quinn APRN CORK INSULATOR [address] [place] [address] 220005 Nurse Practitioner [facility] 09/21/22 Brea Quinn APRN CORK INSULATOR [address] [place] [address] Assigned Surgical Provider 10/09/22 05/01/24 [place] [address] [address] Assigned Musculoskeletal Provider 10/09/22 05/01/24 Livan Sharif MD [address] [facility] [address] [place] [address] Assigned Heart and Vascular Provider 11/06/22 11/12/22 Catherine Cm MD [address] [place] [place] [phone] [place] [address] Assigned Heart and Vascular Provider 11/13/22 05/27/23 Sydnie Martinez RN Personal Advocate & Liaison (PAL) Family Medicine 03/28/23 07/31/23 Alfonso Renteria MD [address] [facility] [address] [place], [place] 908206 Assigned Neuroscience Provider 04/02/23 09/29/24 Cheng Todd PA-C [address] [place] [address] [phone] Assigned PCP 04/30/23 07/15/23 Radha Lomeli APRN CORK INSULATOR [address] [facility] [address] [place] [address] Assigned Heart and Vascular Provider 05/28/23 11/29/24 Jelena David OD [address] [facility] [place] [address] MD Ophthalmology 06/15/23 Pao Joseph, VJ Personal Advocate & Liaison (PAL) Nurse 08/01/23 11/07/23 Esha Grimm PA-C [address] [place] [phone] Assigned PCP 07/16/23 Valery Veronica PA-C [address] [place] [address] Physician Chart Calculator Dermatology 09/19/23 Rey Tay MD [address] [place] [address] 880325 Gastroenterology 09/20/23 Rocky Zepeda DO [address] [place] [address] 131565 Physician Gastroenterology 09/20/23 Philip Dumont MD [address] [place] [address] 680425 Physician Ophthalmology 09/22/23 Meredith Carrera PA-C [address] [place] [address] Assigned Gastroenterology Provider 11/01/23 Neil Knet MD [address] [address] Dermatology 11/02/23 [place] [address] [place] [address] [phone] Neurological Surgery 12/26/23 Audrey Waite PA-C 500 [place] [address] Physician Chart Calculator Dermatology 02/28/24 Valery Veronica PA-C 198180 [place], [place] 346699 Physician Chart Calculator Dermatology 04/10/24 Herminia Hatch MD [facility]5 [place], [place] [phone] Assigned Rheumatology Provider 07/02/24 [place] [address] [place] [address] [place] [address] Ophthalmology 08/30/24 [place] [address] [place] [address] Assigned Neuroscience Provider 09/30/24 Maru Man PA-C [address] [place] [address], [place] [address] Physician Chart Calculator Dermatology 10/03/24 Maru Man PA-C [address] [place] [address], [place] [address] Physician Chart Calculator Dermatology 10/22/24 Jelena David OD [address] [facility] [place] [address] Assigned Surgical Provider 10/31/24 Fabiano Correa NP [address] [place] [address] Assigned Heart and Vascular Provider 11/30/24 documented as of this encounter
--- OUTSIDE RECORDS SUMMARY | 2024-12-17 21:41 | XMS_ITS | Encounter Summary ---
Author Organization Plaza Address [address] [place] [address] Care Team Providers Care Strategy Specialist Name Role Phone Lita Oseguera Unavailable Unavailable Marija Edgar APRN DRAPERY SEWER HAND Primary Care Provider + Marija Edgar APRN DRAPERY SEWER HAND Unavailable [phone] Mynor Broussard MD Unavailable [phone] Keisha Dotson MD Unavailable Galo Burrell MD Unavailable Unavailable Diana Desir [facility] Unavailable Rain Galaviz PA-C Unavailable Summer Lara MD Unavailable [phone] Tavia Wyatt MD Unavailable Johnny Murillo MD Unavailable [phone] Erica Farrell APRN DRAPERY SEWER HAND Unavailable Teresita Bean [facility] Unavailable Tavia Wyatt MD Unavailable Diana Desir [facility] Unavailable Rich Barrett MD Unavailable [phone] Neil Kent MD Unavailable Roney Story DPM Unavailable Erica Farrell BRIDGE OPERATOR DRAPERY SEWER HAND Unavailable Diana Desir [facility] Unavailable [phone] Jelena David OD Unavailable Galo Burrell MD Unavailable Unavailable Livan Sharif MD Unavailable + Livan Sharif MD Unavailable + Catherine Cm MD Unavailable + Valery Veronica PA-C Unavailable [phone] Catherine Cm MD Unavailable + Johnny Murillo MD Unavailable [phone] Brea Quinn BRIDGE OPERATOR DRAPERY SEWER HAND Unavailable [phone] Brea Quinn BRIDGE OPERATOR DRAPERY SEWER HAND Unavailable [phone] Jose Francisco Johnson MD Unavailable Livan Sharif MD Unavailable + IsCatherine hobbs MD Unavailable + Sydnie Martinez RN Unavailable Unavailable Alfonso Renteria MD Unavailable Esha Grimm-C Primary Care Provider Cheng Todd PA-C Unavailable Radha Lomeli BRIDGE OPERATOR DRAPERY SEWER HAND Unavailable [phone] Jelena David OD Unavailable Pao Joseph RN Unavailable Unavailable Esha Grimm-C Unavailable [phone] JeremíasValery damon PA-C Unavailable [phone] Rey Tay MD Unavailable Rocky Zepeda DO Unavailable Philip Dumont MD Unavailable [phone] Meredith Carrera PA-C Unavailable [phone] Neil Kent MD Unavailable Juan Pablo Emmanuel MD Unavailable [phone] Audrey Waite PA-C Unavailable [phone] Valery Veronica PA-C Unavailable [phone] Herminia Hatch MD Unavailable Jelena David OD Unavailable Juan Pablo Emmanuel MD Unavailable [phone] Maru Man-C Unavailable [phone] Maru Man-C Unavailable [phone] Jelena David OD Unavailable Fabiano Correa NP Unavailable [phone] Encounter Details Date Type Department Care Team (Late st Contact Info) Description 08/04/[address] [address] [facility] Social History Tobacco Use Types Packs/Day Years [...] Recorded PHQ-2 Score 0 04/02/2021 [facility] [...] in a half-way (including now)? No 08/11/2020 [place] Depression Scale Answer Date Recorded [place] [...] PM CDT Legal Sex Female 4:13 AM ENERGY MANAGEMENT SPECIALIST Gender Identity Female 03/02/2021 5:45 PM CDT Sexual Orientation Straight 02/28/2020 12 :51 AM CDT COVID-19 Exposure Response Date Recorded In the last month, have you been in contact with someone who was confirmed or suspected to have Coronavirus / COVID-19? No / Unsure 08/03/2021 2:24 PM ENERGY MANAGEMENT SPECIALIST documented as of this encounter Plan of Treatment Upcoming Encounters Date Type Department Care Team (Late st Contact Info) Description 12/19/2024 2:00 PM CDT Office Visit [address] [address] Lauren Claudio PA-C [address] [place] [address] 12/26/2024 7:30 AM CDT Office Visit [facility] [address] [phone] Neil Kent MD [address] [place] [address] 04/16/2025 11:00 AM CDT Virtual Visit [facility] [place] [address] [facility] 4th [place] [phone] Meredith Carrera PA-C [address] [place] [address] documented as of this encounter Visit Diagnoses Not on filedocumented in this encounter Additional Health Concerns Infection Onset Date Last Indicated Resolved Time COVID-19 07/18/2021 07/18/2021 08/08/2021 11:3 9 PM ENERGY MANAGEMENT SPECIALIST Rule Out COVID-19 12/18/2021 12/18/2021 12/19/2021 11:34 AM CDT Rule Out COVID-19 02/24/2022 02/24/2022 02/25/2022 1:08 PM CDT Rule Out COVID-19 04/26/2022 04/26/2022 04/26/2022 6:47 AM CDT Rule Out COVID-19 05/17/2022 05/17/2022 05/17/2022 10:20 PM ENERGY MANAGEMENT SPECIALIST Rule Out COVID-19 06/09/2022 06/09/2022 06/09/2022 9:35 AM ENERGY MANAGEMENT SPECIALIST COVID-19 06/09/2022 06/09/2022 06/30/2022 11:4 1 PM ENERGY MANAGEMENT SPECIALIST Rule Out COVID-19 11/10/2022 11/10/2022 [...] documented as of this encounter Care Teams Strategy Specialist Relationship Specialty Start Date End Date Marija Edgar APRN DRAPERY SEWER HAND PCP - General Nurse Practitioner 04/30/20 04/14/23 Esha Grimm PA-C [address] [place] [phone] PCP - General Family Medicine 05/04/23 Lita Oseguera Personal Advocate & Liaison (PAL) 02/28/20 03/27/23 Marija Edgar APRN DRAPERY SEWER HAND Assigned PCP 06/08/20 04/29/23 Mynor Broussard MD [address] [address] Assigned Surgical Provider 06/01/20 11/28/21 Keisha Dotson MD [address] [place] [address] Assigned Neuroscience Provider 06/04/20 04/01/23 Galo Burrell MD Assigned Heart and Vascular Provider 10/05/20 04/02/22 Diana Desir, [facility] [address] [place] [address] Pharmacist Pharmacist 04/17/21 Rain Galaviz PA-C [address] [place] [address] [place] [address] Physician Assessment Consultant Dermatology 04/28/21 Summer Lara MD [address] [place] [address]534 Assigned OBGYN Provider 05/31/21 9 2 Tavia Wyatt MD [address] [place] [address] Dermatology 07/14/21 Johnny Murillo MD [facility] [place], [place] [phone] Assigned Musculoskeletal Provider 08/30/21 03/17/22 Erica Farrell APRN DRAPERY SEWER HAND [address] [facility] [address] [place] [id number] Nurse Practitioner Cardiovascular Disease 09/09/21 Teresita Bean, [facility] [address] [place] [phone] Pharmacist Pharmacist 09/24/21 09/29/21 Tavia Wyatt MD [address] [place] [address] Assigned Surgical Provider 11/29/21 05/07/22 Diana Desir, [facility] [place] [address] Assigned MTM Pharmacist 01/02/22 Rich Barrett MD [facility] [place] [address] Physician Ophthalmology 01/21/22 Neil Kent MD [address] [place], [place] 686135 Dermatology 02/24/22 Roney Story DPM [address] [facility] [address] [place], [place] 627[address] Assigned Musculoskeletal Provider 03/20/22 08/13/22 Erica Farrell APRN DRAPERY SEWER HAND [facility] [place] [address] Assigned Heart and Vascular Provider 04/03/22 04/16/22 Diana Desir, [facility] [place] [address] Assigned MTM Pharmacist 04/07/22 Jelena David OD [address] [facility] [place] [address] Assigned Surgical Provider 05/08/22 10/08/22 Galo Burrell MD Assigned Heart and Vascular Provider 04/17/22 06/11/22 Livan Sharif MD [address] [place] [address] Cardiovascular Disease 05/14/22 Livan Sharif MD [address] [place] [address] Assigned Heart and Vascular Provider 06/12/22 07/23/22 Catherine Cm MD [address] [place], [place] [address] Cardiovascular Disease 07/21/22 Valery Veronica, PA-C [address] [place] [address]81125 Physician Assessment Consultant Dermatology 07/21/22 Catherine Cm MD [address] [place], [place] 3856[address] Assigned Heart and Vascular Provider 07/24/22 11/05/22 Johnny Murillo MD [facility] [place] [address] Assigned Musculoskeletal Provider 08/14/22 10/08/22 Brea Quinn APRN DRAPERY SEWER HAND [address] [place] [address] [phone] Nurse Practitioner Dermatology 09/21/22 Brea Quinn APRN DRAPERY SEWER HAND [address] [place] [address] Assigned Surgical Provider 10/09/22 05/01/24 [place] [address] [facility] [address] [place] [address] Assigned Musculoskeletal Provider 10/09/22 05/01/24 Livan Sharif MD [address] [place] [address] Assigned Heart and Vascular Provider 11/06/22 11/12/22 Catherine Cm MD [address] [place] [address] Assigned Heart and Vascular Provider 11/13/22 05/27/23 Sydnie Martinez, RN Personal Advocate & Liaison (PAL) Family Medicine 03/28/23 07/31/23 Alfonso Renteria MD [address] [facility] [address] [place] [address] Assigned Neuroscience Provider 04/02/23 09/29/24 Cheng Todd PA-C [address] [place] [address] Assigned PCP 04/30/23 07/15/23 Radha Lomeli APRN DRAPERY SEWER HAND [address] [place] [address] Assigned Heart and Vascular Provider 05/28/23 11/29/24 Jelena David OD [address] [facility] [place] [address] MD Ophthalmology 06/15/23 Pao Joseph, RN Personal Advocate & Liaison (PAL) Nurse 08/01/23 11/07/23 Esha Grimm PA-C [address] [place] [phone] Assigned PCP 07/16/23 Valery Veronica PA-C [address] [place] [address] 994305 Physician Assessment Consultant Dermatology 09/19/23 Rey Tay MD [address] [place] [address] [phone] MD Gastroenterology 09/20/23 Rocky Zepeda DO [address] [place] [address] 309405 Physician Gastroenterology 09/20/23 Philip Dumont MD [address] [place] [address] 004385 Physician Ophthalmology 09/22/23 Meredith Carrera PA-C [address] [place] [address] [phone] Assigned Gastroenterology Provider 11/01/23 Neil Kent MD [address] [address] Dermatology 11/02/23 [place] [address] [place] [address] Neurological Surgery 12/26/23 Audrey Waite PA-C 500 [place] [address] Physician Assessment Consultant Dermatology 02/28/24 Valery Veronica PA-C [address] [place] [address] Physician Assessment Consultant Dermatology 04/10/24 Herminia Hatch MD [address] [place] [address] [phone] Assigned Rheumatology Provider 07/02/24 Jelena David OD [address] [place] [address] [place] [address] Ophthalmology 08/30/24 [place] [address] [place] [address] Assigned Neuroscience Provider 09/30/24 Maru Man PA-C [address] [place] [address] Physician Assessment Consultant Dermatology 10/03/24 Maru Man PA-C [address] [place] [address] Physician Assessment Consultant Dermatology 10/22/24 Jelena David OD [address] [place] [address] [place] [address] Assigned Surgical Provider 10/31/24 Fabiano Correa NP [address] [place] [address] Assigned Heart and Vascular Provider 11/30/24 documented as of this encounter
--- OUTSIDE RECORDS SUMMARY | 2024-12-17 21:41 | XMS_ITS | Encounter Summary ---
Author Organization [place] [facility] Address [address] [place] [address] Care Team Providers Care Director Employment Name Role Phone Rakesh Cid PA-C Primary Care Provider [phone] Lita Oseguera Unavailable Unavailable Rakesh Cid PA-C Unavailable [phone] Lita Oseguera Unavailable Unavailable Marija Edgar APRN SEAFOOD SPECIALIST Primary Care Provider + Chanelle Mccann APRN CNM Unavailab le Lesley Guillermo Unavailable [phone] Kyara De La Fuente RN Unavailable [phone] Marija Edgar APRN SEAFOOD SPECIALIST Unavailable [phone] Mynor Broussard MD Unavailable [phone] Keisha Dotson MD Unavailable [phone] Mary Mejia Unavailable Unavailable Stacey Briones BUSINESS ASSISTANT Unavailable [phone] Lesley Guillermo Unavailable [phone] Mary Mejia Unavailable Unavailable Lita Oseguera Unavailable Unavailable Galo Burrell MD Unavailable Unavailable Cristina Wood Unavailable Lesley Guillermo Unavailable Meredith Bedoya Unavailable Unavailable Cristina Wood Unavailable Diana Desir [facility] Unavailable [phone] Rain Galaviz PA-C Unavailable Summer Lara MD Unavailable [phone] Summer Lara MD Unavailable +[phone] Summer Lara MD Unavailable [phone] Tavia Wyatt MD Unavailable [phone] Johnny Murillo MD Unavailable [phone] Erica Farrell APRN SEAFOOD SPECIALIST Unavailable Teresita Bean [facility] Unavailable Tavia Wyatt MD Unavailable [phone] Diana Desir [facility] Unavailable [phone] Rich Barrett MD Unavailable Neil Kent MD Unavailable Roney Story DPM Unavailable Erica Farrell APRN SEAFOOD SPECIALIST Unavailable Diana Desir [facility] Unavailable [phone] Jelena David OD Unavailable Galo Burrell MD Unavailable Unavailable Livan Sharif MD Unavailable Livan Sharif MD Unavailable + Catherine Cm MD Unavailable + Valery Veronica PA-C Unavailable [phone] Catherine Cm MD Unavailable + Johnny Murillo MD Unavailable [phone] Brea Quinn APRN SEAFOOD SPECIALIST Unavailable [phone] Brea Quinn ENVIRONMENTAL PROJECTS ADVISOR SEAFOOD SPECIALIST Unavailable [phone] Jose Francisco Johnson MD Unavailable Livan Sharif MD Unavailable Catherine Cm MD Unavailable + Sydnie Martinez RN Unavailable Unavailable Alfonso Renteria MD Unavailable [phone] Esha Grimm PA-C Primary Care Provider Cheng Todd PA-C Unavailable [phone] Radha Lomeli ENVIRONMENTAL PROJECTS ADVISOR SEAFOOD SPECIALIST Unavailable Jelena David OD Unavailable Pao Joseph RN Unavailable Unavailable Esha Grimm PA-C Unavailable [phone] Valery Veronica PA-C Unavailable Rey Tay MD Unavailable Rocky Zepeda DO Unavailable Philip Dumont MD Unavailable Meredith Carrera PA-C Unavailable Neil Kent MD Unavailable Juan Pablo Emmanuel MD Unavailable Audrey Waite PA-C Unavailable [phone] Valery Veronica PA-C Unavailable Herminia Hatch MD Unavailable Jelena David OD Unavailable [phone] Juan Pablo Emmanuel MD Unavailable Maru Man PA-C Unavailable Maru Man PA-C Unavailable Jelena David OD Unavailable Madeline Fabiano Gabo MOTORCYCLE DESIGNER Unavailable [phone] Encounter Details Date Type Department Care Team (Late st Contact Info) Description 04/28/2020 MyC Medical Advice [facility] [address] [place] [address] [phone] Rakesh Cid PA-C [address] [place] [address] Social History Tobacco Use Types Packs/Day Years [...] CDT Legal Sex Female 4:13 AM CHAR FILTER OPERATOR HELPER Gender Identity Female 03/02/2021 5:45 [...] Description 12/19/2024 2:00 PM CDT Office Visit [facility] [address] [place] [address] [phone] Lauren Claudio PA-C [address] [place], [place] [phone] 12/26/2024 7:30 AM CDT Office Visit [address] [phone] Neil Kent MD [address] [place] [address] 04/16/2025 11:00 AM CDT Virtual Visit [facility] [place] [id number] [facility] 4th [place] [phone] Meredith Carrera PA-C [address] [place] [address] [phone] documented as of this encounter Visit Diagnoses Not on filedocumented in this encounter Additional Health Concerns Infection Onset Date Last Indicated Resolved Time Rule Out COVID-19 07/30/2020 07/30/2020 07/30/2020 7:11 PM CHAR FILTER OPERATOR HELPER Rule Out COVID-19 08/30/2020 08/30/2020 08/30/2020 5:05 PM CHAR FILTER OPERATOR HELPER Rule Out COVID-19 09/24/2020 09/24/2020 09/24/2020 9:24 AM CDT Rule Out COVID-19 11/05/2020 11/05/2020 11/06/2020 1:09 PM CDT Rule Out COVID-19 05/11/2021 05/11/2021 05/13/2021 10:18 AM CDT Rule Out COVID-19 07/13/2021 07/13/2021 07/14/2021 3:04 PM CHAR FILTER OPERATOR HELPER Rule Out COVID-19 07/18/2021 07/18/2021 07/20/2021 1:56 PM CHAR FILTER OPERATOR HELPER COVID-19 07/18/2021 07/18/2021 08/08/2021 11:3 9 PM CHAR FILTER OPERATOR HELPER Rule Out COVID-19 12/18/2021 12/18/2021 12/19/2021 11:34 AM CDT Rule Out COVID-19 02/24/2022 02/24/2022 02/25/2022 1:08 PM CDT Rule Out COVID-19 04/26/2022 04/26/2022 04/26/2022 6:47 AM CDT Rule Out COVID-19 05/17/2022 05/17/2022 05/17/2022 10:20 PM CHAR FILTER OPERATOR HELPER Rule Out COVID-19 06/09/2022 06/09/2022 06/09/2022 9:35 AM CHAR FILTER OPERATOR HELPER COVID-19 06/09/2022 06/09/2022 06/30/2022 11:4 1 PM CHAR FILTER OPERATOR HELPER Rule Out COVID-19 11/10/2022 11/10/2022 [...] Employment Relationship Specialty Start Date End Date Rakesh Cid PA-C PCP - General Physician Catalogue And Special Products Manager - Medical 05/14/19 04/29/20 Marija Edgar APRN SEAFOOD SPECIALIST [address] [place], [place] [phone] PCP - General Nurse Practitioner 04/30/20 04/14/23 Esha Grimm PA-C [address] [place] [address] PCP - General Family Medicine 05/04/23 Lita Oseguera Personal Advocate & Liaison (PAL) 02/28/20 03/27/23 Rakesh Cid PA-C [address] [place] [address] Assigned PCP 03/02/20 06/07/20 Lita Oseguera Personal Advocate & Liaison (PAL) 04/07/20 04/29/20 Chanelle Mccann APRN CNM [address] [place] [address] [address] [place] [address] Assigned OBGYN Provider 05/02/2005/09 Lesley Guillermo W Community Health Worker 05/30/2005/12 Kyara De La Fuente, RN Specialty Visual Journalist Neurology 06/04/20 03/05/21 Marija Edgar APRN SEAFOOD SPECIALIST [address] [place] [address] Assigned PCP 06/08/20 04/29/23 Mynor Broussard MD [address] [facility] 500 [place] [address] Assigned Surgical Provider 06/01/20 11/28/21 Keisha Dotson MD 909 [place] [address] Assigned Neuroscience Provider 06/04/20 04/01/23 Mary Mejia Financial Resource Worker 08/07/20 08/21/20 Stacey Briones, [facility] Lead Visual Journalist Primary Care - CC 08/11/2012/30 Lesley Guillermo, [facility] Community Health Worker 08/11/2010/01 Mary Mejia Financial Resource Worker 09/02/20 10/06/20 Lita Oseguera Personal Advocate & Liaison (PAL) Family Medicine 09/10/20 09/21/20 Galo Burrell MD Assigned Heart and Vascular Provider 10/05/20 04/02/22 Cristina Wood Financial Resource Worker 10/07/20 10/14/20 Lesley Guillermo, [facility] Community Health Worker 10/23/2012/30 Meredith Bedoya Financial Resource Worker 10/23/20 11/23/20 Cristina Wood Financial Resource Worker 02/09/21 02/09/21 Diana Desir, [facility]3 [place], [place] [phone] Pharmacist Pharmacist 04/17/21 Rain Galaviz PA-C [address] [place] [address] [address] [place], [place] [phone] Physician Catalogue And Special Products Manager Dermatology 04/28/21 Summer Lara MD [address] [place] [address] [phone] Assigned OBGYN Provider 05/10/2105/23 Summer Lara MD [address] [place] [address] [phone] Assigned OBGYN Provider 05/31/21 2 Summer Lara MD [address] [place] [address] [phone] Assigned OBGYN Provider 05/24/2105/30 Tavia Wyatt MD [address] [place] [address] Dermatology 07/14/21 Johnny Murillo MD [facility]2 [address] [facility] [address] [place] [address] Assigned Musculoskeletal Provider 08/30/21 03/17/22 Erica Farrell APRN SEAFOOD SPECIALIST [address] [facility] [address] [place] [address] Nurse Practitioner Cardiovascular Disease 09/09/21 Teresita Bean [facility] [address] [place], [place] [phone] Pharmacist Pharmacist 09/24/21 09/29/21 Tavia Wyatt MD [facility] [place] [address] Assigned Surgical Provider 11/29/21 05/07/22 Diana Desir, [facility] [place] [address] Assigned MTM Pharmacist 01/02/22 Rich Barrett [place] [address] Physician Ophthalmology 01/21/22 Neil Kent MD [address] [place] [address] Dermatology 02/24/22 Roney Story DPM [address] [facility] [address] [place], [place] 932257 Assigned Musculoskeletal Provider 03/20/22 08/13/22 Erica Farrell APRN SEAFOOD SPECIALIST 1700 [place] [address] Assigned Heart and Vascular Provider 04/03/22 04/16/22 [facility] [address] [place] [address] Assigned MTM Pharmacist 04/07/22 [place] [address] [place] [address] Assigned Surgical Provider 05/08/22 10/08/22 Gaol Burrell MD Assigned Heart and Vascular Provider 04/17/22 06/11/22 Livan Sahrif MD [address] [place] [id number] Cardiovascular Disease 05/14/22 Livan Sharif MD [address] [address] [place] [address] Assigned Heart and Vascular Provider 06/12/22 07/23/22 Catherine Cm MD [address] [place] [address] Cardiovascular Disease 07/21/22 Valery Veronica PA-C [address] [place] [address] Physician Catalogue And Special Products Manager Dermatology 07/21/22 Catherine Cm MD [address] [facility] [address] [place] [address] Assigned Heart and Vascular Provider 07/24/22 11/05/22 Johnny Murillo MD [facility] [address] Assigned Musculoskeletal Provider 08/14/22 10/08/22 Brea Quinn APRN SEAFOOD SPECIALIST [address] [place] [address] [phone] Nurse Practitioner Dermatology 09/21/22 Brea Quinn APRN SEAFOOD SPECIALIST [address] [place] [address] [place] [address] Assigned Surgical Provider 10/09/22 05/01/24 [place] [address] [place], [place] [address] [address] Assigned Musculoskeletal Provider 10/09/22 05/01/24 Livan Sharif MD [address] [place] [address] Assigned Heart and Vascular Provider 11/06/22 11/12/22 Catherine Cm MD [address] [place] [address] Assigned Heart and Vascular Provider 11/13/22 05/27/23 Sydnie Martinez RN Personal Advocate & Liaison (PAL) Family Medicine 03/28/23 07/31/23 Alfonso Renteria MD [facility] 200 [place] [address] Assigned Neuroscience Provider 04/02/23 09/29/24 Cheng Todd PA-C [address] [place] [address] [phone] Assigned PCP 04/30/23 07/15/23 Radha Lomeli APRN SEAFOOD SPECIALIST [address] [place] [address] Assigned Heart and Vascular Provider 05/28/23 11/29/24 [place] OD [address] [place] [address] Ophthalmology 06/15/23 Pao Joseph, VJ Personal Advocate & Liaison (PAL) Nurse 08/01/23 11/07/23 Esha Grimm PA-C [address] [place] [phone] Assigned PCP 07/16/23 Valery Veronica PA-C [address] [place] [address] [phone] Physician Catalogue And Special Products Manager Dermatology 09/19/23 Rey Tay MD [address] [place] [address] [phone] MD Gastroenterology 09/20/23 Rocky Zepeda DO [address] [place] [address] 178305 Physician Gastroenterology 09/20/23 Philip Dumont MD 6 [place] [address] Physician Ophthalmology 09/22/23 Meredith Carrera PA-C [address] [place] [address] 263185 Assigned Gastroenterology Provider 11/01/23 Neil Kent MD [address] [place] [address] Dermatology 11/02/23 [place] [address] [facility] [place] [address] Neurological Surgery 12/26/23 Audrey Waite PA-C [address] [place] [address] Physician Catalogue And Special Products Manager Dermatology 02/28/24 Valery Veronica PA-C 429591 [address], [place] [address] Physician Catalogue And Special Products Manager Dermatology 04/10/24 Herminia Hatch MD [facility]5 [place], [place] [phone] Assigned Rheumatology Provider 07/02/24 Jelena David OD [facility] [place] [address] Ophthalmology 08/30/24 [place] [address] [place] [address] Assigned Neuroscience Provider 09/30/24 Maru Man PA-C [address] [place] [address] Physician Catalogue And Special Products Manager Dermatology 10/03/24 Maru Man PA-C [address] [place] [address] Physician Catalogue And Special Products Manager Dermatology 10/22/24 Jelena David OD [address] [place] [address] [place] [address] Assigned Surgical Provider 10/31/24 Fabiano Correa, [place] [address] [place] [address] Assigned Heart and Vascular Provider 11/30/24 documented as of this encounter
--- OUTSIDE RECORDS SUMMARY | 2024-12-17 21:41 | XMS_ITS | Encounter Summary ---
Author Organization [facility] Address [address] [place] [address] Care Team Providers Care Pathology Specialist Name Role Phone Lita Oseguera Unavailable Unavailable Rakesh Cid PA-C Unavailable Marija Edgar APRN INSULATION APPLICATOR Primary Care Provider + Chanelle Mccann APRN CN Unavailab le Lesley Guillermo CHW Unavailable [phone] yKara De La Fuente RN Unavailable [phone] Marija Edgar APRN [facility] Unavailable [phone] Mynor Broussard MD Unavailable [phone] Keisha Dotson MD Unavailable Mary Mejia Unavailable Unavailable Stacey Briones COAL TOWER OPERATOR Unavailable Lesley Guillermo CHW Unavailable [phone] Mary Mejia Unavailable Unavailable Lita Oseguera Unavailable Unavailable Galo Burrell MD Unavailable Unavailable Crisitna Wood Unavailable Lesley Guillermo CHW Unavailable [phone] Meredith Bedoya Unavailable Unavailable Cristina Wood Unavailable Diana Desir [facility] Unavailable [phone] Rain Galaviz PA-C Unavailable Summer Lara MD Unavailable [phone] Summer Lara MD Unavailable [phone] Summer Lara MD Unavailable [phone] Tavia Wyatt MD Unavailable [phone] Johnny Murillo MD Unavailable [phone] Erica Farrell APRN INSULATION APPLICATOR Unavailable Teresita Bean [facility] Unavailable Tavia Wyatt MD Unavailable [phone] Diana Desir [facility] Unavailable [phone] Rich Barrett MD Unavailable Neil Kent MD Unavailable Roney StoryM Unavailable Erica Farrell APRN INSULATION APPLICATOR Unavailable + Diana Desir [facility] Unavailable [phone] Jelena David OD Unavailable Galo Burrell MD Unavailable Unavailable Livan Sharif MD Unavailable Livan Sharif MD Unavailable + Catherine Cm MD Unavailable + Valery Veronica PA-C Unavailable [phone] Catherine Cm MD Unavailable + Johnny Murillo MD Unavailable [phone] Brea Quinn APRN INSULATION APPLICATOR Unavailable [phone] [place], Brea P LEVEL VIAL MARKER INSULATION APPLICATOR Unavailable [phone] Jose Francisco Johnson MD Unavailable Livan Sharif MD Unavailable Catherine Cm MD Unavailable + Sydnie Martinez RN Unavailable Unavailable Alfonso Renteria MD Unavailable Esha Grimm PA-C Primary Care Provider Cheng Todd PA-C Unavailable Armani Radha Sia LEVEL VIAL MARKER INSULATION APPLICATOR Unavailable [phone] Jelena David OD Unavailable [phone] Pao Joseph RN Unavailable Unavailable Esha Grimm PA-C Unavailable [phone] Valery Veronica PA-C Unavailable Rey Tay MD Unavailable Rocky Zepeda DO Unavailable Philip Dumont MD Unavailable [phone] Meredith Carrera PA-C Unavailable [phone] Neil Kent MD Unavailable Juan Pablo Emmanuel MD Unavailable Audrey Waite PA-C Unavailable Valery Veronica PA-C Unavailable Herminia Hatch MD Unavailable Jelena David OD Unavailable [phone] Juan Pablo Emmanuel MD Unavailable Maru Man PA-C Unavailable [phone] Maru Man PA-C Unavailable [phone] Jelena David OD Unavailable Fabiano Correa RAMP AND CARGO SUPERVISOR Unavailable [phone] Encounter Details Date Type Department Care Team (Late st Contact Info) Description 05/16/2020 MyC Medical Advice [facility] [address] [place] [address] Jerome Ferrell RN Social History Tobacco Use [...] CDT Legal Sex Female 4:13 AM MEDICAL DRIVER Gender Identity Female 03/02/2021 5:45 PM CDT Sexual Orientation Straight 02/28/2020 12 :51 AM CDT COVID-19 Exposure Response Date Recorded In the last month, have you been in contact with someone who was confirmed or suspected to have Coronavirus / COVID-19? No / Unsure 05/12/2020 9:03 AM MEDICAL DRIVER documented as of this encounter Plan of Treatment Upcoming Encounters Date Type Department Care Team (Late st Contact Info) Description 12/19/2024 2:00 PM CDT Office Visit [facility] [address] [place] [phone] Lauren Claudio PA-C [address] [place] [address] 12/26/2024 7:30 AM CDT Office Visit [facility] [address] [address] Neil Kent MD [address] [place] [address] 627385 04/16/2025 11:00 AM CDT Virtual Visit [facility] G[facility] [address]th [place] [phone] Meredith Carrera PA-C [address] [place] [address] documented as of this encounter Visit Diagnoses Not on filedocumented in this encounter Additional Health Concerns Infection Onset Date Last Indicated Resolved Time Rule Out COVID-19 07/30/2020 07/30/2020 07/30/2020 7:11 PM MEDICAL DRIVER Rule Out COVID-19 08/30/2020 08/30/2020 08/30/2020 5:05 PM MEDICAL DRIVER Rule Out COVID-19 09/24/2020 09/24/2020 09/24/2020 9:24 AM CDT Rule Out COVID-19 11/05/2020 11/05/2020 11/06/2020 1:09 PM CDT Rule Out COVID-19 05/11/2021 05/11/2021 05/13/2021 10:18 AM CDT Rule Out COVID-19 07/13/2021 07/13/2021 07/14/2021 3:04 PM MEDICAL DRIVER Rule Out COVID-19 07/18/2021 07/18/2021 07/20/2021 1:56 PM MEDICAL DRIVER COVID-19 07/18/2021 07/18/2021 08/08/2021 11:3 9 PM MEDICAL DRIVER Rule Out COVID-19 12/18/2021 12/18/2021 12/19/2021 11:34 AM CDT Rule Out COVID-19 02/24/2022 02/24/2022 02/25/2022 1:08 PM CDT Rule Out COVID-19 04/26/2022 04/26/2022 04/26/2022 6:47 AM CDT Rule Out COVID-19 05/17/2022 05/17/2022 05/17/2022 10:20 PM MEDICAL DRIVER Rule Out COVID-19 06/09/2022 06/09/2022 06/09/2022 9:35 AM MEDICAL DRIVER COVID-19 06/09/2022 06/09/2022 06/30/2022 11:4 1 PM MEDICAL DRIVER Rule Out COVID-19 11/10/2022 11/10/2022 11/11/2022 [...] as of this encounter Care Teams Pathology Specialist Relationship Specialty Start Date End Date Marija Edgar APRN CNP [address] [place] [address] PCP - General Nurse Practitioner 04/30/20 04/14/23 Esha Grimm PA-C [address] [place] [address] PCP - General Family Medicine 05/04/23 Lita Oseguera Personal Advocate & Liaison (PAL) 02/28/20 03/27/23 Rakesh Cid PA-C [address] [place] [address] Assigned PCP 03/02/20 06/07/20 Chanelle Mccann APRN CNM [address] [facility] [address] [place] [address] Assigned OBGYN Provider 05/02/2005/09 Lesley Guillermo, CHW Community Health Worker 05/30/2005/12 Kyara De La Fuente, RN Specialty Animal Bounty Hunter Neurology 06/04/20 03/05/21 Marija Edgar APRN INSULATION APPLICATOR [address] [facility] [place], [place] [phone] Assigned PCP 06/08/20 04/29/23 Mynor Broussard MD 6363 [facility] 500 [place], [place] 147765 Assigned Surgical Provider 06/01/20 11/28/21 Keisha Dotson MD 9 [place], [place] 132765 Assigned Neuroscience Provider 06/04/20 04/01/23 Mary Mejia Financial Resource Worker 08/07/20 08/21/20 Stacey Briones, [facility] Lead Animal Bounty Hunter Primary Care - CC 08/11/2012/30 Lesley Guillermo, W Community Health Worker 08/11/2010/01 Mary Mejia Financial Resource Worker 09/02/20 10/06/20 Lita Oseguera Personal Advocate & Liaison (PAL) Family Medicine 09/10/20 09/21/20 Galo Burrell MD Assigned Heart and Vascular Provider 10/05/20 04/02/22 Cristina Wood Financial Resource Worker 10/07/20 10/14/20 Lesley Guillermo, [facility] Community Health Worker 10/23/2012/30 Meredith Bedoya Financial Resource Worker 10/23/20 11/23/20 Cristina Wood Financial Resource Worker 02/09/21 02/09/21 Diana Desir, [facility] [address] [place] [address] Pharmacist Pharmacist 04/17/21 Rain Galaviz PA-C [address] [place] [address] [address] [place], [place] [phone] Physician Auto Mechanic Dermatology 04/28/21 Summer Lara MD [address] [place] [address] 543024 Assigned OBGYN Provider 05/10/2105/23 Summer Lara MD [address] [place] [address] 136294 Assigned OBGYN Provider 05/31/21 2 Summer Lara MD [address] [place] [address] 414864 Assigned OBGYN Provider 05/24/2105/30 Tavia Wyatt MD [address] [place] [address] [phone] Dermatology 07/14/21 Johnny Murillo MD [address] [place] [address] Assigned Musculoskeletal Provider 08/30/21 03/17/22 Erica Farrell APRN INSULATION APPLICATOR [address] [facility] [address] [place] 65[address] Nurse Practitioner Cardiovascular Disease 09/09/21 Teresita Bean, [facility] [address] [place] [phone] Pharmacist Pharmacist 09/24/21 09/29/21 Tavia Wyatt MD [address] [place], [place] 799420 Assigned Surgical Provider 11/29/21 05/07/22 [facility] 3033 [place] [address] Assigned MTM Pharmacist 01/02/22 Rich Barrett MD 3033 [place] [address] Physician Ophthalmology 01/21/22 Neil Kent MD 500 [place], [place] 153825 Dermatology 02/24/22 Roney Story DPM 17[address] [facility] [address] [place] [address] Assigned Musculoskeletal Provider 03/20/22 08/13/22 Erica Farrell APRN INSULATION APPLICATOR 1700 [place] [address] Assigned Heart and Vascular Provider 04/03/22 04/16/22 Diana Desir, [facility] 30[address] [place] [address] Assigned MTM Pharmacist 04/07/22 Jelena David OD [address] [place] [address] Assigned Surgical Provider 05/08/22 10/08/22 Galo Burrell MD Assigned Heart and Vascular Provider 04/17/22 06/11/22 Livan Sharif MD [address] [place] [address] Cardiovascular Disease 05/14/22 Livan Sharif MD [address] [place] [address] Assigned Heart and Vascular Provider 06/12/22 07/23/22 Catherine Cm MD [address] [place] [address] Cardiovascular Disease 07/21/22 Valery Veronica, PA-C 909 [place] [address] Physician Auto Mechanic Dermatology 07/21/22 Catherine Cm MD [address] [place] [address] Assigned Heart and Vascular Provider 07/24/22 11/05/22 Johnny Murillo MD [address] [address] Assigned Musculoskeletal Provider 08/14/22 10/08/22 Brea Quinn APRN INSULATION APPLICATOR 500 [place] [address] Nurse Practitioner Dermatology 09/21/22 Brea Quinn APRN INSULATION APPLICATOR [address] [place] [address] [place] [address] Assigned Surgical Provider 10/09/22 05/01/24 [place] [address] [address] [facility] 300 [place] [address] Assigned Musculoskeletal Provider 10/09/22 05/01/24 Livan Sharif MD 6405 [facility] [address] [place] [address] Assigned Heart and Vascular Provider 11/06/22 11/12/22 Catherine Cm MD 6405 [facility] [address] [place] 854135 Assigned Heart and Vascular Provider 11/13/22 05/27/23 Sydnie Martinez RN Personal Advocate & Liaison (PAL) Family Medicine 03/28/23 07/31/23 Alfonso Renteria MD 5775 [facility] 200 [place] [address] Assigned Neuroscience Provider 04/02/23 09/29/24 Cheng Todd PA-C [address] [place] [address] Assigned PCP 04/30/23 07/15/23 Radha Lomeli APRN INSULATION APPLICATOR [address] [facility] [address] [place] [address] Assigned Heart and Vascular Provider 05/28/23 11/29/24 Jelena David OD [address] [place] [address] Ophthalmology 06/15/23 Pao Joseph, VJ Personal Advocate & Liaison (PAL) Nurse 08/01/23 11/07/23 Esha Grimm PA-C [address] [place] [phone] Assigned PCP 07/16/23 Valery Veronica PA-C [address] [place] [address] Physician Auto Mechanic Dermatology 09/19/23 Rey Tay MD [address] [place] [address] Gastroenterology 09/20/23 Rocky Zepeda DO [address] [place] [address] Physician Gastroenterology 09/20/23 Philip Dumont MD 516 [place] [address] Physician Ophthalmology 09/22/23 Meredith Carrera PA-C [address] [place] [address] Assigned Gastroenterology Provider 11/01/23 Neil Kent MD [address] [address] Dermatology 11/02/23 [place] [address] [place], [place] 0[address] Neurological Surgery 12/26/23 Audrey Waite PA-C [address] [place] [address] Physician Auto Mechanic Dermatology 02/28/24 Valery Veronica PA-C [address]555 [address] [place] [address] Physician Auto Mechanic Dermatology 04/10/24 Herminia Hatch MD [address] [place] [address] [phone] Assigned Rheumatology Provider 07/02/24 Jelena David OD [address] [place] [address] [place] [address] Ophthalmology 08/30/24 [place] [address] [place] 618517 Assigned Neuroscience Provider 09/30/24 Maru Man PA-C [address] [place] [address] Physician Auto Mechanic Dermatology 10/03/24 Maru Man PA-C [address] [place] [address] Physician Auto Mechanic Dermatology 10/22/24 Jelena David OD [address] [facility] [place] [address] Assigned Surgical Provider 10/31/24 Fabiano Correa NP [address] [place] [address] Assigned Heart and Vascular Provider 11/30/24 documented as of this encounter
--- OUTSIDE RECORDS SUMMARY | 2024-12-17 21:41 | XMS_ITS | Encounter Summary ---
Author Organization [facility] Address [address] [place] [address] Care Team Providers Care Concert Manager Name Role Phone Lita Oseguera Unavailable Unavailable Marija Edgar APRN ORTHO NURSE Primary Care Provider + Marija Edgar APRN ORTHO NURSE Unavailable [phone] Keisha Dotson MD Unavailable [phone] Diana Desir [facility] Unavailable [phone] Rain Galaviz PA-C Unavailable Tavia Wyatt MD Unavailable Erica Farrell APRN ORTHO NURSE Unavailable Rich Barrett MD Unavailable [phone] Neil Kent MD Unavailable Diana Desir [facility] Unavailable [phone] Livan Sharif MD Unavailable Catherine Cm MD Unavailable + Valery Veronica PA-C Unavailable [phone] Catherine Cm MD Unavailable + Brea Quinn LAB ASSISTANT ORTHO NURSE Unavailable Brea Quinn LAB ASSISTANT ORTHO NURSE Unavailable [phone] Jose Francisco Johnson MD Unavailable Livan Sharif MD Unavailable ChivoraynaCatherine boothe MD Unavailable + Sydnie Martinez RN Unavailable Unavailable Alfonso Renteria MD Unavailable Esha Grimm PA-C Primary Care Provider Cheng Todd PA-C Unavailable [phone] Radha Lomeli LAB ASSISTANT ORTHO NURSE Unavailable [phone] Jelena David OD Unavailable [phone] Pao Joseph RN Unavailable Unavailable Esha Grimm PA-C Unavailable [phone] Valery Veronica PA-C Unavailable Rey Tay MD Unavailable Rocky Zepeda DO Unavailable Philip Dumont MD Unavailable [phone] Meredith Carrera PA-C Unavailable [phone] Neil Kent MD Unavailable Juan Pablo Emmanuel MD Unavailable Audrey Waite PA-C Unavailable [phone] Valery Veronica PA-C Unavailable Hermniia Hatch MD Unavailable Jelena David OD Unavailable Juan Pablo Emmanuel MD Unavailable Maru Man PA-C Unavailable +[phone] Maru Man PA-C Unavailable [phone] Jelena David OD Unavailable Fabiano Correa BUILD MASTER Unavailable [phone] Reason for Visit * Reason Onset Date Comments MyChart Communication 10/27/2022 Encounter Details Date Type Department Care Team (Late st Contact Info) Description 10/27/2022 MyC Medical Advice [address] [place] [address] Brea Quinn, LAB ASSISTANT ORTHO NURSE 6401 [facility] [place] [address] [employer] Communication (/) Social History Tobacco Use Types [...] How often do you attend hoahaoism or jew serv ices? Never 09/22/2021 Do [...] 10/11/2022 [facility] - Occupational Stress Questionnaire Answer Date Recorded [...] in a fdc (including now)? 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 AM RETIREMENT CONSULTANT Gender Identity Female 03/02/2021 5:45 PM [...] Letha Driver RN [facility] Gloria Alvarenga [phone] documented in this encounter Plan of Treatment Upcoming Encounters Date Type Department Care Team (Late st Contact Info) Description 12/19/2024 2:00 PM CDT Office Visit [facility] [address] [place] [phone] Lauren Claudio PA-C [address] [place] [address] 12/26/2024 7:30 AM CDT Office Visit [facility] [address] [address] Neil Kent MD [address] [place] [address] 04/16/2025 11:00 AM CDT Virtual Visit [facility] [place] [address] [place] [address] 4th [place] [phone] Meredith Carrera PA-C [address] [place] [address] documented as of this encounter Visit Diagnoses [...] documented as of this encounter Care Teams Concert Manager Relationship Specialty Start Date End Date Marija Edgar APRN CNP PCP - General Nurse Practitioner 04/30/20 04/14/23 Esha Grimm PA-C [address] [place] [address] PCP - General Family Medicine 05/04/23 Lita Oseguera Personal Advocate & Liaison (PAL) 02/28/20 03/27/23 Marija Edgar APRN ORTHO NURSE Assigned PCP 06/08/20 04/29/23 Keisha Dotson MD [address] [place], [place] 760445 Assigned Neuroscience Provider 06/04/20 04/01/23 Diana Desir, [facility] [address] [place], [place] [address] Pharmacist Pharmacist 04/17/21 Rain Galaviz PA-C [address] [place] [address] [address] [facility] [place] [address] Physician Architect Dermatology 04/28/21 Tavia Wyatt MD [address] [place] [address] [address] [facility] [place] [address] Dermatology 07/14/21 Erica Farrell APRN ORTHO NURSE [address] [place] 363785 Nurse Practitioner Cardiovascular Disease 09/09/21 Rich Barrett MD [address] [place] 477075 Physician Ophthalmology 01/21/22 Neil Kent MD 500 [place], [place] 448625 Dermatology 02/24/22 Diana Desir, [facility] 3033 [place], [place] 564176 Assigned [place] Pharmacist 04/07/22 Livan Sharif MD [address] [place] 309895 Cardiovascular Disease 05/14/22 Catherine Cm MD [address] [place] 55[address]95 Cardiovascular Disease 07/21/22 Valery Veronica, PA-C 909 [place], [place] 422105 Physician Architect Dermatology 07/21/22 Catherine Cm MD [address] [place] 758235 Assigned Heart and Vascular Provider 07/24/22 11/05/22 Brea Quinn APRN ORTHO NURSE 500 [place], [place] 176205 Nurse Practitioner Dermatology 09/21/22 Brea Quinn APRN ORTHO NURSE 6401 [facility] [place] 536752 Assigned Surgical Provider 10/09/22 05/01/24 [place] [address] [address] [place] [address] Assigned Musculoskeletal Provider 10/09/22 05/01/24 Livan Sharif MD [address] [place] 983245 Assigned Heart and Vascular Provider 11/06/22 11/12/22 Catherine Cm MD [address] [place] [address] Assigned Heart and Vascular Provider 11/13/22 05/27/23 Sydnie Martinez RN Personal Advocate & Liaison (PAL) Family Medicine 03/28/23 07/31/23 Alfonso Renteria MD 5775 [facility] 200 [place], [place] 647796 Assigned Neuroscience Provider 04/02/23 09/29/24 Cheng Todd PA-C [address] [place] [address] [phone] Assigned PCP 04/30/23 07/15/23 Radha Lomeli APRN ORTHO NURSE [address] [place] [address] Assigned Heart and Vascular Provider 05/28/23 11/29/24 Jelena David OD 3305 [facility] [place] [address] MD Ophthalmology 06/15/23 Pao Joseph, RN Personal Advocate & Liaison (PAL) Nurse 08/01/23 11/07/23 Esha Grimm PA-C [address] [place] [address]28[address] Assigned PCP 07/16/23 Valery Veronica PA-C [address] [place] [address] 915445 Physician Architect Dermatology 09/19/23 Rey Tay MD [address] [place] [address] 315605 MD Gastroenterology 09/20/23 Rocky Zepeda DO [address] [place] [address] 349445 Physician Gastroenterology 09/20/23 Philip Dumont MD [address] [place] [address] 307615 Physician Ophthalmology 09/22/23 Meredith Carrera PA-C [address] [place] [address] 385695 Assigned Gastroenterology Provider 11/01/23 Niel Kent MD [address] [place] [address] 321960 Dermatology 11/02/23 [place] [address] [place] [address] Neurological Surgery 12/26/23 Audrey Waite PA-C 500 [place] [address] Physician Architect Dermatology 02/28/24 Valery Veronica PA-C [id number] [place] [address] Physician Architect Dermatology 04/10/24 Herminia Hatch MD [address] [place] [address] [phone] Assigned Rheumatology Provider 07/02/24 Jelena David OD [address] [place] [address] [place] [address] Ophthalmology 08/30/24 [place] [address] [place] [address] Assigned Neuroscience Provider 09/30/24 Maru Man PA-C [address] [place] [address] Physician Architect Dermatology 10/03/24 Maru Man PA-C [address] [place] [address] Physician Architect Dermatology 10/22/24 Jelena David, SONJA [address] [place] [address] [place] [address] Assigned Surgical Provider 10/31/24 Fabiano Correa, BUILD MASTER [address] [place] [address] Assigned Heart and Vascular Provider 11/30/24 documented as of this encounter
--- OUTSIDE RECORDS SUMMARY | 2024-12-17 21:41 | XMS_ITS | Encounter Summary ---
Author Organization [facility] Address [address] [place] [address] Care Team Providers Care Order Make Up Clerk Name Role Phone Lita Oseguera Unavailable Unavailable Marija Edgar APRN HOUSING AND RESIDENCE LIFE DIRECTOR Primary Care Provider + Marija Edgar APRN HOUSING AND RESIDENCE LIFE DIRECTOR Unavailable Mynor Broussard MD Unavailable [phone] Keisha Dotson MD Unavailable [phone] Galo Burrell MD Unavailable Unavailable Diana Desir [facility] Unavailable Rain Galaviz PA-C Unavailable Summer Lara MD Unavailable [phone] Tavia Wyatt MD Unavailable Johnny Murillo MD Unavailable Erica Farrell APRN HOUSING AND RESIDENCE LIFE DIRECTOR Unavailable Teresita Bean [facility] Unavailable [phone] Tavia Wyatt MD Unavailable Diana Desir [facility] Unavailable Rich Barrett MD Unavailable [phone] Neil [place] MD Unavailable Roney Story DPM Unavailable Erica Farrell IN SCHOOL SUSPENSION COORDINATOR HOUSING AND RESIDENCE LIFE DIRECTOR Unavailable Diana Desir [facility] Unavailable [phone] Jelena David OD Unavailable Galo Burrell MD Unavailable Unavailable Livan Sharif MD Unavailable + Livan Sharif MD Unavailable + Catherine Cm MD Unavailable + Valery Veronica PA-C Unavailable [phone] Catherine Cm MD Unavailable + Johnny Murillo MD Unavailable [phone] Brea Quinn IN SCHOOL SUSPENSION COORDINATOR HOUSING AND RESIDENCE LIFE DIRECTOR Unavailable [phone] Brae Quinn IN SCHOOL SUSPENSION COORDINATOR HOUSING AND RESIDENCE LIFE DIRECTOR Unavailable [phone] Jose Francisco Johnson MD Unavailable Livan Sharif MD Unavailable + IsCatherine hobbs MD Unavailable + Sydnie Martinez RN Unavailable Unavailable Alfonso Renteria MD Unavailable Esha Grimm-C Primary Care Provider Cheng Todd PA-C Unavailable Radha Lomeli IN SCHOOL SUSPENSION COORDINATOR HOUSING AND RESIDENCE LIFE DIRECTOR Unavailable [phone] Jelena David OD Unavailable [phone] Pao Joseph RN Unavailable Unavailable Esha Grimm-C Unavailable JeremíasValery damon PA-C Unavailable [phone] Rey Tay MD Unavailable Rocky Zepeda DO Unavailable Philip Dumont MD Unavailable [phone] Meredith Carrera PA-C Unavailable [phone] Neil [place] MD Unavailable Juan Pablo Emmanuel MD Unavailable Audrey Waite PA-C Unavailable [phone] Valery Veronica PA-C Unavailable Herminia Hatch MD Unavailable Jelena David OD Unavailable Juan Pablo Emmanuel MD Unavailable Maru Man-C Unavailable [phone] Maru Man-C Unavailable [phone] Jelena David OD Unavailable Fabiano Corera NP Unavailable Encounter Details Date Type Department Care Team (Late st Contact Info) Description 06/03/2021 [facility] [address] [address] Diana Desir, [facility] [address] [place] [address] Social History Tobacco Use Types Packs/Day Years [...] Date Recorded PHQ-2 Score 0 04/02/2021 [facility] [place] of Occupat ional Health - Occupational [...] in a chcf (including now)? No 08/11/2020 [place] Depression Scale Answer Date Recorded [place] Depression Score 5 01/14/2021 Last EPDS Self Harm Result Not on file 01/14 Education Answer Date Recorded What is the highest level of school you have completed or the highest degree you have received? 12th grade 08/07/2020 Comments No Sex and Gender Information Value Date Recorded Sex Assigned at Female 03/02/2021 5:45 PM CDT Legal Sex Female 4:13 AM COMPLIANCE FIELD TECHNICIAN Gender Identity Female 03/02/2021 5:45 PM [...] Description 12/19/2024 2:00 PM CDT Office Visit [facility] [address] [place] [address] Lauren Claudio PA-C [address] [place] [address] 12/26/2024 7:30 AM CDT Office Visit [facility] [address] [phone] Neil Kent MD [address] [place] [address] 04/16/2025 11:00 AM CDT Virtual Visit [facility] [place] [address] [place] [address] 4th [place] [phone] Meredith Carrera PA-C [address] [place] [address] [phone] documented as of this encounter Visit Diagnoses Not on filedocumented in this encounter Additional Health Concerns Infection Onset Date Last Indicated Resolved Time Rule Out COVID-19 07/13/2021 07/13/2021 07/14/2021 3:04 PM COMPLIANCE FIELD TECHNICIAN Rule Out COVID-19 07/18/2021 07/18/2021 07/20/2021 1:56 PM COMPLIANCE FIELD TECHNICIAN COVID-19 07/18/2021 07/18/2021 08/08/2021 11:3 9 PM COMPLIANCE FIELD TECHNICIAN Rule Out COVID-19 12/18/2021 12/18/2021 12/19/2021 11:34 AM CDT Rule Out COVID-19 02/24/2022 02/24/2022 02/25/2022 1:08 PM CDT Rule Out COVID-19 04/26/2022 04/26/2022 04/26/2022 6:47 AM CDT Rule Out COVID-19 05/17/2022 05/17/2022 05/17/2022 10:20 PM COMPLIANCE FIELD TECHNICIAN Rule Out COVID-19 06/09/2022 06/09/2022 06/09/2022 9:35 AM COMPLIANCE FIELD TECHNICIAN COVID-19 06/09/2022 06/09/2022 06/30/2022 11:4 1 PM COMPLIANCE FIELD TECHNICIAN Rule Out COVID-19 11/10/2022 11/10/2022 11/11/2022 [...] as of this encounter Care Teams Order Make Up Clerk Relationship Specialty Start Date End Date Marija Edgar APRN HOUSING AND RESIDENCE LIFE DIRECTOR PCP - General Nurse Practitioner 04/30/20 04/14/23 Esha Grimm PA-C [address] [place] [address] PCP - General Family Medicine 05/04/23 Lita Oseguera Personal Advocate & Liaison (PAL) 02/28/20 03/27/23 Marija Edgar APRN HOUSING AND RESIDENCE LIFE DIRECTOR Assigned PCP 06/08/20 04/29/23 Mynor Broussard MD [address] [facility] [address] 500 [place], [place] 314725 Assigned Surgical Provider 06/01/20 11/28/21 Keisha Dotson MD 909 [place], [place] 419125 Assigned Neuroscience Provider 06/04/20 04/01/23 Galo Burrell MD Assigned Heart and Vascular Provider 10/05/20 04/02/22 Diana Desir, [facility] 3033 [place] [address] Pharmacist Pharmacist 04/17/21 Rain Galaviz PA-C [address] [facility] [address] [place] [address] Physician Bounty Trapper Dermatology 04/28/21 Summer Lara MD [address] [place], [place] 4428[address] Assigned OBGYN Provider 05/31/21 2 Tavia Wyatt MD [address] [place], [place] [address] Dermatology 07/14/21 Johnny Murillo MD [address] [facility] [address] [place] [address] Assigned Musculoskeletal Provider 08/30/21 03/17/22 Erica Farrell APRN HOUSING AND RESIDENCE LIFE DIRECTOR 6405 [facility] [address] [place], [place] 169045 Nurse Practitioner Cardiovascular Disease 09/09/21 Teresita Bean [facility] [address] [place] [address] Pharmacist Pharmacist 09/24/21 09/29/21 Tavia Wyatt MD [address] [place] [address] Assigned Surgical Provider 11/29/21 05/07/22 Diana Desir, [facility] [address] [place] [address] Assigned MTM Pharmacist 01/02/22 Rich Barrett MD [address]33 [place] [address] Physician Ophthalmology 01/21/22 Neil Kent MD 500 [place] [address] Dermatology 02/24/22 Roney tSory DPM 0[address] [facility] 300 [place] [address] Assigned Musculoskeletal Provider 03/20/22 08/13/22 Erica Farrell APRN HOUSING AND RESIDENCE LIFE DIRECTOR 1700 [place] [address] Assigned Heart and Vascular Provider 04/03/22 04/16/22 Diana Desir, [facility] [address] [place] [address] Assigned MTM Pharmacist 04/07/22 Jelena David OD [address] [facility] [place] [address] Assigned Surgical Provider 05/08/22 10/08/22 Galo Burrell MD Assigned Heart and Vascular Provider 04/17/22 06/11/22 Livan Sharif MD [address] [place] 420765 Cardiovascular Disease 05/14/22 Livan Sharif MD [address] [place] 866635 Assigned Heart and Vascular Provider 06/12/22 07/23/22 Catherine Cm MD [address] [place] 759205 Cardiovascular Disease 07/21/22 Valery Veronica, PA-C [address] [place], [place] 669[address] Physician Bounty Trapper Dermatology 07/21/22 Catherine Cm MD [address] [place] 931065 Assigned Heart and Vascular Provider 07/24/22 11/05/22 Johnny Murillo MD [address] [place] [address] 481505 Assigned Musculoskeletal Provider 08/14/22 10/08/22 Brea Quinn APRN HOUSING AND RESIDENCE LIFE DIRECTOR 500 [place] [address] Nurse Practitioner Dermatology 09/21/22 Brea Quinn APRN HOUSING AND RESIDENCE LIFE DIRECTOR 6401 [place] [address] Assigned Surgical Provider 10/09/22 05/01/24 [place] [address] [facility] 300 [place] [address] Assigned Musculoskeletal Provider 10/09/22 05/01/24 Livan Sharif MD 6405 [facility] [address] [place] [address] Assigned Heart and Vascular Provider 11/06/22 11/12/22 Catherine Cm MD [address] [facility] [address] [place] [address] Assigned Heart and Vascular Provider 11/13/22 05/27/23 Sydnie Martinez RN Personal Advocate & Liaison (PAL) Family Medicine 03/28/23 07/31/23 Alfonso Renteria MD 57[address] [facility] 200 [place], [place] 621766 Assigned Neuroscience Provider 04/02/23 09/29/24 Cheng Todd PA-C [address] [place] [address] [phone] Assigned PCP 04/30/23 07/15/23 Radha Lomeli APRN HOUSING AND RESIDENCE LIFE DIRECTOR [address] [place] [address] Assigned Heart and Vascular Provider 05/28/23 11/29/24 Jelena David OD [address] [facility] [place] [address] MD Ophthalmology 06/15/23 Pao Joseph, VJ Personal Advocate & Liaison (PAL) Nurse 08/01/23 11/07/23 Esha Grimm PA-C [address] [place] [phone] Assigned PCP 07/16/23 Valery Veronica PA-C [address] [place] [address] 116075 Physician Bounty Trapper Dermatology 09/19/23 Rey Tay MD [address] [place] [address] 594225 Gastroenterology 09/20/23 Rocky Zepeda DO [address] [place] [address] 862145 Physician Gastroenterology 09/20/23 Philip Dumont MD [address] [place] [address] 233815 Physician Ophthalmology 09/22/23 Meredith Carrera PA-C [address] [place] [address] [phone] Assigned Gastroenterology Provider 11/01/23 Neil Kent MD [address] [place] [address] MD Dermatology 11/02/23 [place] [address] [place] [address] Neurological Surgery 12/26/23 Audrey Waite PA-C [address] [place] [address] Physician Bounty Trapper Dermatology 02/28/24 Valery Veronica PA-C [address]004 [address] [place] [address] Physician Bounty Trapper Dermatology 04/10/24 Herminia Hatch MD [address] [place] [address] [phone] Assigned Rheumatology Provider 07/02/24 Jelena David OD [address] [place] [address] [place] [address] Ophthalmology 08/30/24 [place] [address] [place] [address] Assigned Neuroscience Provider 09/30/24 Maru Man PA-C [address] [place] [address] Physician Bounty Trapper Dermatology 10/03/24 Maru Man PA-C [address] [place] [address] Physician Bounty Trapper Dermatology 10/22/24 Jelena David OD [address] [facility] [place] [address] Assigned Surgical Provider 10/31/24 Fabiano Correa NP [address] [place] [address] Assigned Heart and Vascular Provider 11/30/24 documented as of this encounter
--- OUTSIDE RECORDS SUMMARY | 2024-12-17 21:41 | XMS_ITS | Encounter Summary ---
Author Organization [facility] Address [address] [place] [address] Care Team Providers Care Fire Engine Operator Name Role Phone Lita Oseguera Unavailable Unavailable Marija Edgar APRN STARCH CRAB Primary Care Provider + Marija Edgar APRN STARCH CRAB Unavailable [phone] Keisha Dotson MD Unavailable Diana Desir [facility] Unavailable Rain Galaviz PA-C Unavailable [phone] Tavia Wyatt MD Unavailable Erica Farrell APRN STARCH CRAB Unavailable Rich Barrett MD Unavailable [phone] Neil Kent MD Unavailable Diana Desir [facility] Unavailable [phone] Livan Sharif MD Unavailable Catherine Cm MD Unavailable + Valery Veronica PA-C Unavailable [phone] Brea Quinn CONSULTING ANALYST STARCH CRAB Unavailable Brea Quinn CONSULTING ANALYST STARCH CRAB Unavailable Jose Francisco Johnson MD Unavailable Livan Sharif MD Unavailable Catherine Cm MD Unavailable + Sydnie Martinez RN Unavailable Unavailable Alfonso Renteria MD Unavailable [phone] Esha Grimm PA-C Primary Care Provider Cheng Todd PA-C Unavailable ArmaniRadha APRN STARCH CRAB Unavailable Jelena David OD Unavailable [phone] Pao Joseph RN Unavailable Unavailable Esha Grimm PA-C Unavailable [phone] Valery Veronica PA-C Unavailable Rey Tay MD Unavailable Rocky Zepeda DO Unavailable Philip Dumont MD Unavailable [phone] Meredith Carrera PA-C Unavailable [phone] Neil Kent MD Unavailable Juan Pablo Emmanuel MD Unavailable Audrey Waite PA-C Unavailable Valery Veronica PA-C Unavailable Herminia Hatch MD Unavailable Jelena David OD Unavailable [phone] Juan Pablo Emmanuel MD Unavailable [phone] Maru Man PA-C Unavailable [phone] Maru Man PA-C Unavailable [phone] Jelena David OD Unavailable [phone] Fabiano [place] NP Unavailable Encounter Details Date Type Department Care Team (Late st Contact Info) Description 11/10/2022 MyC Medical Advice [facility] [address] [place] [phone] Lauren Claudio, PAUcheC [address] [place] [address] Social History Tobacco Use Types [...] How often do you attend taoist or confucianist serv ices? Never 09/22/2021 Do you belong [...] Answer Date Recorded PHQ-2 Score 1 10/11/2022 [facility] [place] of Occupat ional Health - Occupational Stress [...] in a assisted (including now)? No 09/22/2021 [place] Depression Scale Answer Date Recorded [place] Depression Score 5 01/14/2021 Last EPDS Self Harm Result Not on file 01/14 Education Answer Date Recorded What is the highest level of school you have completed or the highest degree you have received? 12th grade 08/07/2020 Comments No Sex and Gender Information Value Date Recorded Sex Assigned at Female 03/02/2021 5:45 PM CDT Legal Sex Female 4:13 AM BOILING HOUSE HAND Gender Identity Female 03/02/2021 5:45 PM [...] Description 12/19/2024 2:00 PM CDT Office Visit [facility] [address] [place] [phone] Lauren Claudio PA-C [address] [place] [address] 12/26/2024 7:30 AM CDT Office Visit [facility] [address] [phone] Neil Kent MD [address] [place] [address] 04/16/2025 11:00 AM CDT Virtual Visit [facility] [address] [place] [address] Meredith Carrera PA-C [address] [place] [address] documented as of this encounter Visit Diagnoses [...] as of this encounter Care Teams Fire Engine Operator Relationship Specialty Start Date End Date Marija Edgar APRN STARCH CRAB PCP - General Nurse Practitioner 04/30/20 04/14/23 Esha Girmm PA-C [address] [place] [address] PCP - General Family Medicine 05/04/23 Lita Oseguera Personal Advocate & Liaison (PAL) 02/28/20 03/27/23 Marija Edgar APRN STARCH CRAB Assigned PCP 06/08/20 04/29/23 Keisha Dotson MD [address] [place] [address] Assigned Neuroscience Provider 06/04/20 04/01/23 Diana Desir [facility] [address] [place] [address] Pharmacist Pharmacist 04/17/21 Rain Galaviz PA-C [address] [place] [address] [address] [facility] [place] [address] Physician Carton Liner Dermatology 04/28/21 Tavia Wyatt MD [address] [place] [address] DR [facility] [place] [address] Dermatology 07/14/21 Erica Farrell APRN STARCH CRAB [address] [place] [address] Nurse Practitioner Cardiovascular Disease 09/09/21 Rich Barrett MD [address] [place] [address] Physician Ophthalmology 01/21/22 Neil Kent MD [address] [place] [address] Dermatology 02/24/22 Diana Desir [facility] [address] [place] [address] Assigned MTM Pharmacist 04/07/22 Livan Sharif MD [address] [place] [address] Cardiovascular Disease 05/14/22 Catherine Cm MD [address] [facility] [address] [place] [address] Cardiovascular Disease 07/21/22 Valery Veronica PAUcheC [address] [place] [address] 404255 Physician Carton Liner Dermatology 07/21/22 Brea Quinn APRN STARCH CRAB [address] [place] [address] Nurse Practitioner Dermatology 09/21/22 Brea Quinn APRN STARCH CRAB [address] [place] [address] Assigned Surgical Provider 10/09/22 05/01/24 [place] [address] [address] Assigned Musculoskeletal Provider 10/09/22 05/01/24 Livan Sharif MD [address] [facility] [address] [place] [address] Assigned Heart and Vascular Provider 11/06/22 11/12/22 Catherine Cm MD [address] [facility] [address] [place] [address] Assigned Heart and Vascular Provider 11/13/22 05/27/23 Sydnie Martinez RN Personal Advocate & Liaison (PAL) Family Medicine 03/28/23 07/31/23 Alfonso Renteria MD [address] [facility] 200 [place] [address] Assigned Neuroscience Provider 04/02/23 09/29/24 Cheng Todd PA-C [address] [place] [address] Assigned PCP 04/30/23 07/15/23 Radha Lomeli APRN STARCH CRAB 6405 [facility] LIS[facility]00 [place] [address] Assigned Heart and Vascular Provider 05/28/23 11/29/24 Jelena David OD [facility] [place] [address] Ophthalmology 06/15/23 Pao Joseph, VJ Personal Advocate & Liaison (PAL) Nurse 08/01/23 11/07/23 Esha Grimm PA-C [address] [place] [address] Assigned PCP 07/16/23 Valery Veronica PA-C [address] [place] [address] Physician Carton Liner Dermatology 09/19/23 Rey Tay MD [address] [place] [address] Gastroenterology 09/20/23 Rocky Zepeda DO [address] [place] [address] Physician Gastroenterology 09/20/23 Philip Dumont MD [address] [place] [address] Physician Ophthalmology 09/22/23 Meredith Carrera PA-C [address] [place] [address] Assigned Gastroenterology Provider 11/01/23 Neil Kent MD [address] [place] [address] MD Dermatology 11/02/23 [place] [address] [address] Neurological Surgery 12/26/23 Audrey Waite PA-C [address] [place] [address] Physician Carton Liner Dermatology 02/28/24 Valery Veronica PA-C 605296 [address] [place] [address] Physician Carton Liner Dermatology 04/10/24 Herminia Hatch MD [address] [place] [address] [id number] Assigned Rheumatology Provider 07/02/24 [place] [address] [place] [address] [place] [address] Ophthalmology 08/30/24 [place] [address] [address] [place] [address] Assigned Neuroscience Provider 09/30/24 Maru Man PA-C [address] [place] [address] Physician Carton Liner Dermatology 10/03/24 Maru Man PA-C [address] [place] [address] Physician Carton Liner Dermatology 10/22/24 Jelena David OD 3305 [facility] [place] [address] Assigned Surgical Provider 10/31/24 Fabiano [place] NP [address] [place] [address] Assigned Heart and Vascular Provider 11/30/24 documented as of this encounter
[2024-12-17 21:42] VITALS: BP 132/81; PULSE 95; RESP 18; TEMP 36.7; O2SAT 99; BMI 29.1
--- OUTSIDE RECORDS SUMMARY | 2024-12-17 21:42 | XMS_ITS | Encounter Summary ---
Author Organization [facility] Address [address] [place] [address] Care Team Providers Care Building Energy Retrofit Technician Name Role Phone Lita Oseguera Unavailable Unavailable Marija Edgar BUILDING GUARD DEPUTY SHERIFF AUTOMATIC DRILLING MACHINE OPERATOR Primary Care Provider + Chanelle Mccann BUILDING GUARD DEPUTY SHERIFF CNM Unavailab le Marija Edgar APRN AUTOMATIC DRILLING MACHINE OPERATOR Unavailable Mynor Broussard MD Unavailable [phone] Keisha Dotson MD Unavailable Galo Burrell MD Unavailable Unavailable Diana Desir [facility] Unavailable Rain Galaviz PA-C Unavailable Summer Lara MD Unavailable Summer Lara MD Unavailable [phone] Summer Lara MD Unavailable [phone] Tavia Wyatt MD Unavailable Johnny Murillo MD Unavailable [phone] Erica Farrell BUILDING GUARD DEPUTY SHERIFF AUTOMATIC DRILLING MACHINE OPERATOR Unavailable Teresita Bean [facility] Unavailable Tavia Wyatt MD Unavailable DesirDiana [facility] Unavailable Rich Barrett MD Unavailable Neil [place] MD Unavailable Roney StoryM Unavailable [phone] Erica Farrell APRN AUTOMATIC DRILLING MACHINE OPERATOR Unavailable Diana Desir [facility] Unavailable [phone] Jelena David OD Unavailable Galo Burrell MD Unavailable Unavailable Livan Sharif MD Unavailable Livan Sharif MD Unavailable Catherine Cm MD Unavailable + Valery VeronicaC Unavailable [phone] Catherine Cm MD Unavailable + Johnny Murillo MD Unavailable [phone] Brea Quinn BUILDING GUARD DEPUTY SHERIFF AUTOMATIC DRILLING MACHINE OPERATOR Unavailable [phone] Brea Quinn BUILDING GUARD DEPUTY SHERIFF AUTOMATIC DRILLING MACHINE OPERATOR Unavailable [phone] Jose Francisco Johnson MD Unavailable Livan Sharif MD Unavailable Catherine Cm MD Unavailable + Sydnie Martinez RN Unavailable Unavailable Alfonso Renteria MD Unavailable Esha GrimmC Primary Care Provider Cheng Todd-C Unavailable [phone] Radha Lomeli APRN AUTOMATIC DRILLING MACHINE OPERATOR Unavailable [phone] Jelena David OD Unavailable Pao Joseph RN Unavailable Unavailable [place], Esha M PA-C Unavailable [phone] Valery Veronica PA-C Unavailable Rey Tay MD Unavailable Rocky Zepeda DO Unavailable Philip Dumont MD Unavailable Meredith Carrera PA-C Unavailable Neil [place] MD Unavailable Juan Pablo Emmanuel MD Unavailable Audrey Waite PA-C Unavailable Valery Veronica PA-C Unavailable Herminia Hatch MD Unavailable Jelean David OD Unavailable Juan Pablo Emmanuel MD Unavailable Maru Man PA-C Unavailable Maru Man PA-C Unavailable Jelena David OD Unavailable Fabiano Correa NP Unavailable Encounter Details Date Type Department Care Team (Late st Contact Info) Description 04/17/2021 MyC Medical Advice [address] [address] Diana Desir, [facility] [address] [place], [place] 607916 Social History Tobacco Use Types Packs/Day Years [...] do you attend [facility] or [facility] services? More than 4 times [...] Answer Date Recorded PHQ-2 Score 0 04/02/2021 [facility] - [...] in a chcf (including now)? No 08/11/2020 [place] Depression Scale Answer Date Recorded [place] Depression Score 5 01/14/2021 Last EPDS Self Harm Result Not on file 01/14 Education Answer Date Recorded What is the highest level of school you have completed or the highest degree you have received? 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 [address] [place] [address] Lauren Claudio PA-C [id number] [place] [address] 12/26/2024 7:30 AM CDT Office Visit [facility] [address] [phone] Neil Kent MD [address] [place] [address] 04/16/2025 11:00 AM CDT Virtual Visit [facility] [address] [place] [phone] Meredith Carrera PA-C [address] [place] [address] 018155 documented as of this encounter Visit Diagnoses Not on filedocumented in this encounter Additional Health Concerns Infection Onset Date Last Indicated Resolved Time Rule Out COVID-19 05/11/2021 05/11/2021 05/13/2021 10:18 AM CDT Rule Out COVID-19 07/13/2021 07/13/2021 07/14/2021 3:04 PM [employer]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 Rule Out COVID-19 07/18/2021 07/18/2021 07/20/2021 1:56 PM [employer]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 COVID-19 07/18/2021 07/18/2021 08/08/2021 11:3 9 PM [employer]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 Rule Out COVID-19 12/18/2021 12/18/2021 12/19/2021 11:34 AM CDT Rule Out COVID-19 02/24/2022 02/24/2022 02/25/2022 1:08 PM CDT Rule Out COVID-19 04/26/2022 04/26/2022 04/26/2022 6:47 AM CDT Rule Out COVID-19 05/17/2022 05/17/2022 05/17/2022 10:20 PM [employer]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 Rule Out COVID-19 06/09/2022 06/09/2022 06/09/2022 9:35 AM [employer]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 500 [place], [place] 735155 Assigned Surgical Provider 06/01/20 11/28/21 Keisha Dotson MD 909 [place], [place] 625465 Assigned Neuroscience Provider 06/04/20 04/01/23 Galo Burrell MD Assigned Heart and Vascular Provider 10/05/20 04/02/22 Diana Desir, [facility] [address] [place] [address] Pharmacist Pharmacist 04/17/21 Rain Galaviz PA-C [address] [place] [address] [address] [place] [address] Physician Partner [facility] 04/28/21 Summer Lara MD [address] [place], [place] [address] Assigned OBGYN Provider 05/10/2105/23 Summer Lara MD [address] [place] [address] [place] [address] Assigned OBGYN Provider 05/31/21 2 Summer Lara MD [address] [place] [address] [place] [address] Assigned OBGYN Provider 05/24/2105/30 Tavia Wyatt MD [address] [place] [address] Dermatology 07/14/21 Johnny Murillo MD [facility] [address] [facility] [address] [place] [address] Assigned Musculoskeletal Provider 08/30/21 03/17/22 Erica Farrell APRN [facility] 6405 [facility] [address] [place] [address] Nurse Practitioner Cardiovascular Disease 09/09/21 Teresita Bean [facility] [address] [place], [place] [phone] Pharmacist Pharmacist 09/24/21 09/29/21 Tavia Wyatt MD [address] [place] [address] Assigned Surgical Provider 11/29/21 05/07/22 Diana Desir, [facility] 3033 [place] [address] Assigned MTM Pharmacist 01/02/22 Rich Barrett MD 3033 [place] [address] Physician Ophthalmology 01/21/22 Neil Kent MD 500 [place] [address] Dermatology 02/24/22 Roney Story DPM [address] [facility] 300 [place] [address] Assigned Musculoskeletal Provider 03/20/22 08/13/22 Erica Farrell APRN AUTOMATIC DRILLING MACHINE OPERATOR 1700 [place] [address] Assigned Heart and Vascular Provider 04/03/22 04/16/22 [facility] [address] [place] [address] Assigned MTM Pharmacist 04/07/22 Jelena David OD [address] [facility] [place] [address] Assigned Surgical Provider 05/08/22 10/08/22 Galo Burrell MD Assigned Heart and Vascular Provider 04/17/22 06/11/22 Livan Sharif MD 6405 [facility] [address] [place], [place] 9[address]65 Cardiovascular Disease 05/14/22 Livan Sharif MD 6405 [facility] [address] [place] [address] Assigned Heart and Vascular Provider 06/12/22 07/23/22 Catherine Cm MD [address] [place] 2529500 [place] [id number] Cardiovascular Disease 07/21/22 Valery Veronica, PAUcheC [address] [place] [address] 347445 Physician Partner [facility] 07/21/22 Catherine Cm MD [address] [place] 2529500 [place] [address]65 Assigned Heart and Vascular Provider 07/24/22 11/05/22 Johnny Murillo MD [address] [place] [address] 770024 Assigned Musculoskeletal Provider 08/14/22 10/08/22 Brea Quinn APRN AUTOMATIC DRILLING MACHINE OPERATOR [address] [place] [address] 274575 Nurse Practitioner Dermatology 09/21/22 Brea Quinn APRN AUTOMATIC DRILLING MACHINE OPERATOR [address] [place] [address] [place] 924502 Assigned Surgical Provider 10/09/22 05/01/24 [place] [address] [place] [place] [address] 164027 Assigned Musculoskeletal Provider 10/09/22 05/01/24 Livan Sharif MD [address] [place], [place] 218465 Assigned Heart and Vascular Provider 11/06/22 11/12/22 Catherine Cm MD [address] [place] [address] Assigned Heart and Vascular Provider 11/13/22 05/27/23 Sydnie Martinez RN Personal Advocate & Liaison (PAL) Family Medicine 03/28/23 07/31/23 Alfonso Renteria MD 5775 [facility] 200 [place] [address] Assigned Neuroscience Provider 04/02/23 09/29/24 Cheng Todd PA-C [address] [place] [address] [id number] Assigned PCP 04/30/23 07/15/23 Radha Lomeli APRN AUTOMATIC DRILLING MACHINE OPERATOR [address] [place] [address] Assigned Heart and Vascular Provider 05/28/23 11/29/24 Jelena David OD 3305 [facility] [place] [address] Ophthalmology 06/15/23 Pao Joseph, VJ Personal Advocate & Liaison (PAL) Nurse 08/01/23 11/07/23 Esha Grimm PA-C [address] [place] [phone] Assigned PCP 07/16/23 Valery Veronica PA-C [address] [place] [address] Physician Partner [facility] 09/19/23 Rey Tay MD [address] [place] [address] MD Gastroenterology 09/20/23 Rocky Zepeda DO [address] [place] [address] 614085 Physician Gastroenterology 09/20/23 Philip Dumont MD [address] [place] [address] 192575 Physician Ophthalmology 09/22/23 Meredith Carrera PA-C [address] [place] [address] 389705 Assigned Gastroenterology Provider 11/01/23 Neil Kent MD [address] 374880 Dermatology 11/02/23 [place] [address] [place] [address] Neurological Surgery 12/26/23 Audrey Waite PA-C [address] [place] [address] Physician Partner [facility] 02/28/24 Valery Veronica PA-C [address] [place] [address] Physician Partner [facility] 04/10/24 Herminia Hatch MD [address] [place] [address] [phone] Assigned Rheumatology Provider 07/02/24 Jelena David, SONJA [address] [place] [address] [place] [address] Ophthalmology 08/30/24 [place] [address] [place] [address] Assigned Neuroscience Provider 09/30/24 Maru Man PA-C [address] [place] [address] Physician Partner [facility] 10/03/24 Maru Man PA-C [address] [place] [address] Physician Partner [facility] 10/22/24 [place] [address] [place] [address] [place] [address] Assigned Surgical Provider 10/31/24 Fabiano Correa NP [address] [place] [address] Assigned Heart and Vascular Provider 11/30/24 documented as of this encounter
--- OUTSIDE RECORDS SUMMARY | 2024-12-17 21:42 | XMS_ITS | Encounter Summary ---
Author Organization [facility] Address [address] [place] [address] Care Team Providers Care Equal Opportunity Counselor Name Role Phone Lita Oseguera Unavailable Unavailable Marija Edgar APRN COAT OPERATOR INSULATOR Primary Care Provider + Marija Edgar APRN COAT OPERATOR INSULATOR Unavailable Keisha Dotson MD Unavailable Diana Desir [facility] Unavailable [phone] Rain Galaviz PA-C Unavailable Tavia Wyatt MD Unavailable Erica Farrell APRN COAT OPERATOR INSULATOR Unavailable Rich Barrett MD Unavailable [phone] Neil Kent MD Unavailable Diana Desir [facility] Unavailable Livan Sharif MD Unavailable Catherine Cm MD Unavailable + Valery Veronica PA-C Unavailable Catherine Cm MD Unavailable + Brea Quinn PHOTOVOLTAIC PANEL INSTALLER COAT OPERATOR INSULATOR Unavailable Brea Quinn PHOTOVOLTAIC PANEL INSTALLER COAT OPERATOR INSULATOR Unavailable [phone] Jose Francisco Johnson MD Unavailable Livan Sharif MD Unavailable ChivoraynaCatherine boothe MD Unavailable + Sydnie Martinez RN Unavailable Unavailable Alfonso Renteria MD Unavailable Esha Grimm PA-C Primary Care Provider Cheng Todd PA-C Unavailable [phone] Radha Lomeli PHOTOVOLTAIC PANEL INSTALLER COAT OPERATOR INSULATOR Unavailable [phone] Jelena David OD Unavailable [phone] Pao Joseph RN Unavailable Unavailable Esha Grimm PA-C Unavailable [phone] Valery Veronica PA-C Unavailable Rey Tay MD Unavailable Rocky Zepeda DO Unavailable Philip Dumont MD Unavailable [phone] Meredith Carrera PA-C Unavailable [phone] Neil Kent MD Unavailable Juan Pablo Emmanuel MD Unavailable Audrey Waite PA-C Unavailable [phone] Valery Veronica PA-C Unavailable Herminia Hatch MD Unavailable Jelena David OD Unavailable Juan Pablo Emmanuel MD Unavailable Maru Man PA-C Unavailable [phone] Maru Man PA-C Unavailable [phone] Jelena David OD Unavailable Fabiano Correa RECEPTION SPECIALIST Unavailable [phone] Encounter Details Date Type Department Care Team (Late st Contact Info) Description 10/22/2022 MyC Medical Advice [facility] [place] [address] [facility] [address] [place] [address] [place] [address] [facility] [address] [place], [place] 332227 Social History Tobacco Use Types Packs/Day Years [...] How often do you attend yazidi or faith serv ices? Never 09/22/2021 Do [...] Answer Date Recorded PHQ-2 Score 1 10/11/2022 [facility] - Occupational Stress [...] in a alf (including now)? No 09/22/2021 [place] Depression Scale Answer Date Recorded [place] Depression Score 5 01/14/2021 Last EPDS Self Harm Result Not on file 01/14 Education Answer Date Recorded What is the highest level of school you have completed or the highest degree you have received? 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 Gender Identity Female 03/02/2021 5:45 PM [...] Description 12/19/2024 2:00 PM CDT Office Visit [facility] [address] [place] [phone] Lauren Claudio PA-C [address] [place] [address] 12/26/2024 7:30 AM CDT Office Visit [address] [place] [phone] Neil Kent MD [address] [place] [address] 04/16/2025 11:00 AM CDT Virtual Visit [facility] [address] 4th [place] [phone] Meredith Carrera PA-C [address] [place] [address] documented as of this encounter Visit Diagnoses [...] documented as of this encounter Care Teams Equal Opportunity Counselor Relationship Specialty Start Date End Date Marija Edgar APRN CNP PCP - General Nurse Practitioner 04/30/20 04/14/23 Esha Girmm PA-C [address] [place] [phone] PCP - General Family Medicine 05/04/23 Lita Oseguera Personal Advocate & Liaison (PAL) 02/28/20 03/27/23 Marija Edgar APRN COAT OPERATOR INSULATOR Assigned PCP 06/08/20 04/29/23 Keisha Dotson MD 909 [place] [address] Assigned Neuroscience Provider 06/04/20 04/01/23 [facility]3 [place] [address] Pharmacist Pharmacist 04/17/21 Rain Galaviz PA-C [address] [place] [address] [address] [place] [address] Physician Yard Worker Dermatology 04/28/21 Tavia Wyatt MD [address] [place] [address] [address] [place] [address] Dermatology 07/14/21 Erica Farrell APRN COAT OPERATOR INSULATOR [address] [place] [address] Nurse Practitioner Cardiovascular Disease 09/09/21 Rich Barrett MD [address] [place] [address] Physician Ophthalmology 01/21/22 Neil Kent MD 500 [place], [place] 909545 Dermatology 02/24/22 Diana Desir, [facility] 3033 [place], [place] 284066 Assigned MTM Pharmacist 04/07/22 Livan Sharif MD [address] [facility] [address] [place] 885945 Cardiovascular Disease 05/14/22 Catherine Cm MD [address] [place] 7604000 [place], [place] 884375 Cardiovascular Disease 07/21/22 Valery Veronica, PA-C [address] [place] [address] 872565 Physician Yard Worker Dermatology 07/21/22 Catherine Cm MD 6405 [facility] [address] [place], [place] 642235 Assigned Heart and Vascular Provider 07/24/22 11/05/22 Brea Quinn APRN COAT OPERATOR INSULATOR 500 [place], [place] 544065 Nurse Practitioner Dermatology 09/21/22 Brea Quinn APRN COAT OPERATOR INSULATOR [address] [place] [address] [place] 375322 Assigned Surgical Provider 10/09/22 05/01/24 [place] [address] [place] [address] Assigned Musculoskeletal Provider 10/09/22 05/01/24 Livan Shairf MD [address] [address] [place] [address] Assigned Heart and Vascular Provider 11/06/22 11/12/22 Catherine Cm MD [address] [address] [place] [address] Assigned Heart and Vascular Provider 11/13/22 05/27/23 Sydnie Martinez RN Personal Advocate & Liaison (PAL) Family Medicine 03/28/23 07/31/23 Alfonso Renteria MD 5775 [facility] 200 [place], [place] 372316 Assigned Neuroscience Provider 04/02/23 09/29/24 Cheng Todd PA-C [address] [place] [address] [id number] Assigned PCP 04/30/23 07/15/23 Radha Lomeli APRN COAT OPERATOR INSULATOR [address] [place] [address] Assigned Heart and Vascular Provider 05/28/23 11/29/24 Jelena David OD [address] [facility] [place] [address] MD Ophthalmology 06/15/23 Pao Joseph, RN Personal Advocate & Liaison (PAL) Nurse 08/01/23 11/07/23 Esha Grimm PA-C [address] [place] [address] Assigned PCP 07/16/23 Valery Veronica PA-C [address] [place] [address] 565335 Physician Yard Worker Dermatology 09/19/23 Rey Tay MD [address] [place] [address] 610395 MD Gastroenterology 09/20/23 Rocky Zepeda DO [address] [place] [address] 654085 Physician Gastroenterology 09/20/23 Philip Dumont MD [address] [place] [address] 991655 Physician Ophthalmology 09/22/23 Meredith Carrera PA-C [address] [place] [address] 835775 Assigned Gastroenterology Provider 11/01/23 Neil Kent MD [address] [place] [address] 083140 Dermatology 11/02/23 [place] [address] [place] [address] Neurological Surgery 12/26/23 Audrey Waite PA-C 500 [place] [address] Physician Yard Worker Dermatology 02/28/24 Valery Veronica PA-C [address] [place] [address] Physician Yard Worker Dermatology 04/10/24 Herminia Hathc MD [address] [place] [address] Assigned Rheumatology Provider 07/02/24 Jelena David, SONJA [address] [place] [address] [place] [address] Ophthalmology 08/30/24 [place] [address] [place] [address] Assigned Neuroscience Provider 09/30/24 Maru Man PA-C [address] [place] [address] Physician Yard Worker Dermatology 10/03/24 Maru Man PA-C [address] [place] [address] Physician Yard Worker Dermatology 10/22/24 Jelena David, SONJA [address] [place] [address] [place] [address] Assigned Surgical Provider 10/31/24 Fabiano Correa, RECEPTION SPECIALIST [address] [place] [address] Assigned Heart and Vascular Provider 11/30/24 documented as of this encounter
--- OUTSIDE RECORDS SUMMARY | 2024-12-17 21:42 | XMS_ITS | Encounter Summary ---
Author Organization [facility] Address [address] [place] [address] Care Team Providers Care Road Service Locksmith Name Role Phone Lita Oseguera Unavailable Unavailable Marija Edgar APRN VP REVENUE CYCLE Primary Care Provider + Marija Edgar APRN VP REVENUE CYCLE Unavailable [phone] Keisha Dotson MD Unavailable Diana Desir [facility] Unavailable [phone] Rain Galaviz PA-C Unavailable Tavia Wyatt MD Unavailable Erica Farrell APRN VP REVENUE CYCLE Unavailable Rich Barrett MD Unavailable [phone] Neil Kent MD Unavailable Roney Story DPM Unavailable Diana Desir [facility] Unavailable [phone] Jelena David OD Unavailable Livan Sharif MD Unavailable Livan Sharif MD Unavailable Catherine Cm MD Unavailable + Valery Veronica PA-C Unavailable Catherine Cm MD Unavailable + Johnny Murillo MD Unavailable [phone] Brea Quinn NETWORK APPLICATIONS SPECIALIST VP REVENUE CYCLE Unavailable [phone] Brea Quinn NETWORK APPLICATIONS SPECIALIST VP REVENUE CYCLE Unavailable [phone] Jose Francisco Johnson MD Unavailable Livan Sharif MD Unavailable Catherine Cm MD Unavailable + Sydnie Martinez RN Unavailable Unavailable Alfonso Renteria MD Unavailable [phone] Esha Grimm PA-C Primary Care Provider Cheng Todd PA-C Unavailable [phone] Radha Lomeli NETWORK APPLICATIONS SPECIALIST VP REVENUE CYCLE Unavailable Jelena David OD Unavailable Pao Joseph RN Unavailable Unavailable Esha Grimm PA-C Unavailable [phone] Valery Veronica PA-C Unavailable Rey Tay MD Unavailable Rocky Zepeda DO Unavailable Philip Dumont MD Unavailable Meredith Carrera PA-C Unavailable Neil Kent MD Unavailable Juan Pablo Emmanuel MD Unavailable Audrey Waite PA-C Unavailable Valery Veronica PA-C Unavailable Herminia Hatch MD Unavailable Jelena David OD Unavailable [phone] Juan Pablo Emmanuel MD Unavailable [phone] Maru Man PA-C Unavailable [phone] Maru Man PA-C Unavailable [phone] Jelena David OD Unavailable [phone] Fabiano Correa NP Unavailable [phone] Encounter Details Date Type Department Care Team (Late st Contact Info) Description 07/20/2022 MyC Medical Advice [address] [address] Pao Donahue RN Social History [...] How often do you attend orthodoxy or confucianism serv ices? Never 09/22/2021 Do [...] points; Administer PHQ-9 if positive 1 05/13/2022 [facility] - [...] in a halfway (including now)? No 09/22/2021 [place] Depression Scale Answer Date Recorded [place] Depression Score 5 01/14/2021 Last EPDS Self Harm Result Not on file 01/14 Education Answer Date Recorded What is the highest level of school you have completed or the highest degree you have received? 12th grade 08/07/2020 Comments No Sex and Gender Information Value Date Recorded Sex Assigned at Female 03/02/2021 5:45 PM CDT Legal Sex Female 4:13 AM DAIRY BACTERIOLOGIST Gender Identity Female 03/02/2021 5:45 PM CDT Sexual Orientation Straight 02/28/2020 12 :51 AM CDT COVID-19 Exposure Response Date Recorded In the last 10 days, have yo u been in contact with someone who was confirmed or suspected to have Coronavirus/COVID-19? No / Unsure 07/23/2022 6:45 AM DAIRY BACTERIOLOGIST documented as of this encounter Plan of Treatment Upcoming Encounters Date Type Department Care Team (Late st Contact Info) Description 12/19/2024 2:00 PM CDT [facility] Visit [facility] [id number] [place] [phone] Lauren Claudio PA-C [id number] [place] [address] 12/26/2024 7:30 AM CDT Office Visit [facility] [address] [address] Neil Kent MD [address] [place] [address] 473355 04/16/2025 11:00 AM CDT Virtual Visit [facility] [address] 4th [place] [phone] Meredith Carrera PA-C [address] [place] [address] documented as of this encounter Visit Diagnoses [...] as of this encounter Care Teams Road Service Locksmith Relationship Specialty Start Date End Date Marija Edgar APRN CNP PCP - General Nurse Practitioner 04/30/20 04/14/23 Esha Grimm PA-C [address] [place] [phone] PCP - General Family Medicine 05/04/23 Lita Oseguera Personal Advocate & Liaison (PAL) 02/28/20 03/27/23 Marija Edgar APRN VP REVENUE CYCLE Assigned PCP 06/08/20 04/29/23 Keisha Dotson MD [address] [place], [place] 406905 Assigned Neuroscience Provider 06/04/20 04/01/23 [facility] [address] [place], [place] 223286 Pharmacist Pharmacist 04/17/21 Rain Galaviz PA-C [address] [place] [address] [address] [facility] [place] [address] Physician Meat Trimmer Dermatology 04/28/21 Tavia Wyatt MD [address] [place] [address] [address] [facility] [place] [address] Dermatology 07/14/21 Erica Farrell APRN VP REVENUE CYCLE [address] [place] [address] Nurse Practitioner Cardiovascular Disease 09/09/21 Rich Barrett MD [address] [place] [address] Physician Ophthalmology 01/21/22 Neil Kent MD 500 [place] [address] Dermatology 02/24/22 Roney Story DPM [address] [facility] [address] [place], [place] 066817 Assigned Musculoskeletal Provider 03/20/22 08/13/22 Diana Desir, [facility] 3033 [place] [address] Assigned MTM Pharmacist 04/07/22 Jelena David OD [address] [facility] [place] [id number] Assigned Surgical Provider 05/08/22 10/08/22 Livan Sharif MD [address] [place] 564085 Cardiovascular Disease 05/14/22 Livan Sharif MD [address] [place] 978385 Assigned Heart and Vascular Provider 06/12/22 07/23/22 Catherine Cm MD [address] [place] 261785 Cardiovascular Disease 07/21/22 Valery Veronica PAUcheC [address] [place], [place] 021435 Physician Meat Trimmer Dermatology 07/21/22 Catherine Cm MD [address] [place] 964415 Assigned Heart and Vascular Provider 07/24/22 11/05/22 Johnny Murillo MD [address] [facility] [address] [place] [address] Assigned Musculoskeletal Provider 08/14/22 10/08/22 Brea Quinn APRN VP REVENUE CYCLE 500 [place], [place] 344675 Nurse Practitioner Dermatology 09/21/22 Brea Quinn APRN VP REVENUE CYCLE 6401 [facility] [place] [place] [address] Assigned Surgical Provider 10/09/22 05/01/24 [place] [address] [address] Assigned Musculoskeletal Provider 10/09/22 05/01/24 Livan Sharif MD [address]405 [facility] [address] [place] [address] Assigned Heart and Vascular Provider 11/06/22 11/12/22 Catherine Cm MD 6[address] [facility] [address] [place] [address] Assigned Heart and Vascular Provider 11/13/22 05/27/23 Sydnie Martinez, VJ Personal Advocate & Liaison (PAL) Family Medicine 03/28/23 07/31/23 Alfonso Renteria MD [address] [facility] 200 [place], [place] 441136 Assigned Neuroscience Provider 04/02/23 09/29/24 Cheng Todd PA-C [address] [place] [address] [id number] Assigned PCP 04/30/23 07/15/23 Radha Lomeli APRN VP REVENUE CYCLE 6405 [facility] [address] [place] [address] Assigned Heart and Vascular Provider 05/28/23 11/29/24 Jelena David OD [address] [facility] [address] [place] [id number] Ophthalmology 06/15/23 Pao Joseph, VJ Personal Advocate & Liaison (PAL) Nurse 08/01/23 11/07/23 Esha Grimm PA-C [address] [place] [address]03[address]83 Assigned PCP 07/16/23 Valery Veronica PA-C [address] [place] [address] Physician Meat Trimmer Dermatology 09/19/23 Rey Tay MD [address] [place] [address] 351815 Gastroenterology 09/20/23 Rocky Zepeda DO [address] [place] [address] 796515 Physician Gastroenterology 09/20/23 Philip Dumont MD [address] [place] [address] 489485 Physician Ophthalmology 09/22/23 Meredith Carrera PA-C 909 [place] [address] Assigned Gastroenterology Provider 11/01/23 Neil Kent MD [address] [address] MD Dermatology 11/02/23 [place] [address] [place] 562867 Neurological Surgery 12/26/23 Audrey Waite PA-C 500 [place] [address] Physician Meat Trimmer Dermatology 02/28/24 Valery Veronica PA-C 8[address]105 [address], [place] [address] Physician Meat Trimmer Dermatology 04/10/24 Herminia Hatch MD [facility]5 [place], [place] 12546125 Assigned Rheumatology Provider 07/02/24 Jelena David OD [address] [facility] [address] Ophthalmology 08/30/24 [place] [address] [place] [address] Assigned Neuroscience Provider 09/30/24 Maru Man PA-C [address] [place] [address] Physician Meat Trimmer Dermatology 10/03/24 Maru Man PA-C [address] [place] [address] Physician Meat Trimmer Dermatology 10/22/24 Jelena David OD [address] [facility] [address] Assigned Surgical Provider 10/31/24 Fabiano Correa NP [address] [place] [address] Assigned Heart and Vascular Provider 11/30/24 documented as of this encounter
--- OUTSIDE RECORDS SUMMARY | 2024-12-17 21:42 | XMS_ITS | Encounter Summary ---
Author Organization [facility] Address [address] [place] [address] Care Team Providers Care Healthcare Architect Name Role Phone Lita Oseguera Unavailable Unavailable Marija Edgar VIDEO PLAYER MECHANIC INSURANCE AGENCY OWNER Primary Care Provider + Chanelle Mccann VIDEO PLAYER MECHANIC CNM Unavailab le Marija Edgar APRN INSURANCE AGENCY OWNER Unavailable Mynor Broussard MD Unavailable [phone] Keisha Dotson MD Unavailable [phone] Galo Burrell MD Unavailable Unavailable Diana Desir [facility] Unavailable Rain Galaviz PA-C Unavailable Summer Lara MD Unavailable [phone] Summer Lara MD Unavailable [phone] Summer Lara MD Unavailable [phone] Tavia Wyatt MD Unavailable Johnny Murillo MD Unavailable [phone] Erica Farrell VIDEO PLAYER MECHANIC INSURANCE AGENCY OWNER Unavailable Teresita Bean [facility] Unavailable [phone] Tavia Wyatt MD Unavailable DesirDiana [facility] Unavailable Rich Barrett MD Unavailable Neil Kent MD Unavailable Roney StoryM Unavailable [phone] Erica Farrell APRN INSURANCE AGENCY OWNER Unavailable Diana Desir [facility] Unavailable [phone] Jelena David OD Unavailable Galo Burrell MD Unavailable Unavailable Livan Sharif MD Unavailable Livan Sharif MD Unavailable Catherine Cm MD Unavailable + Valery VeronicaC Unavailable [phone] Catherine Cm MD Unavailable + Johnny Murillo MD Unavailable [phone] Brea Quinn VIDEO PLAYER MECHANIC INSURANCE AGENCY OWNER Unavailable [phone] Brea Quinn VIDEO PLAYER MECHANIC INSURANCE AGENCY OWNER Unavailable [phone] Jose Francisco Johnson MD Unavailable Livan Sharif MD Unavailable Catherine Cm MD Unavailable + Sydnie Martinez RN Unavailable Unavailable Alfonso Renteria MD Unavailable Esha GrimmC Primary Care Provider Cheng Todd-C Unavailable [phone] Radha Lomeli APRN INSURANCE AGENCY OWNER Unavailable [phone] Jelena David OD Unavailable Pao Joseph RN Unavailable Unavailable [place], Esha M PA-C Unavailable [phone] Valery Veronica PA-C Unavailable Rey Tay MD Unavailable Rocky Zepeda DO Unavailable Philip Dumont MD Unavailable Meredith Carrera PA-C Unavailable [phone] Neil Kent MD Unavailable Juan Pablo Emmanuel MD Unavailable [phone] Audrey Waite PA-C Unavailable Valery Veronica PA-C Unavailable Herminia Hatch MD Unavailable Jelena David OD Unavailable [phone] Juan Pablo Emmanuel MD Unavailable Maru Man PA-C Unavailable Maru Man PA-C Unavailable [phone] Jelena David OD Unavailable Fabiano Correa NP Unavailable Encounter Details Date Type Department Care Team (Late st Contact Info) Description 04/28/2021 MyC Medical Advice [address] [address] Lauren Gan, RN Social History [...] Date Recorded PHQ-2 Score 0 04/02/2021 [facility] - Occupational [...] in a mcfp (including now)? No 08/11/2020 Mart Depression Scale Answer Date Recorded Mart Depression Score 5 01/14/2021 Last EPDS Self Harm Result Not on file 01/14 Education Answer Date Recorded What is the highest level of school you have completed or the highest degree you have received? 12th grade 08/07/2020 Comments No Sex and Gender Information Value Date Recorded Sex Assigned at Female 03/02/2021 5:45 PM CDT Legal Sex Female 4:13 AM SMOKEHOUSE OPERATOR Gender Identity Female 03/02/2021 5:45 PM [...] CDT Office Visit [facility] [address] [place] [phone] Lauren Claudio PA-C [address] [place] [address] 12/26/2024 7:30 AM CDT Office Visit [facility] [address] [phone] Neil Kent MD [address] [place] [address] 04/16/2025 11:00 AM CDT Virtual Visit [facility] [address] 4th [place] [phone] Meredith Carrera PA-C [address] [place] [address] documented as of this encounter Visit Diagnoses Not on filedocumented in this encounter Additional Health Concerns Infection Onset Date Last Indicated Resolved Time Rule Out COVID-19 05/11/2021 05/11/2021 05/13/2021 10:18 AM CDT Rule Out COVID-19 07/13/2021 07/13/2021 07/14/2021 3:04 PM SMOKEHOUSE OPERATOR Rule Out COVID-19 07/18/2021 07/18/2021 07/20/2021 1:56 PM SMOKEHOUSE OPERATOR COVID-19 07/18/2021 07/18/2021 08/08/2021 11:3 9 PM SMOKEHOUSE OPERATOR Rule Out COVID-19 12/18/2021 12/18/2021 12/19/2021 11:34 AM CDT Rule Out COVID-19 02/24/2022 02/24/2022 02/25/2022 1:08 PM CDT Rule Out COVID-19 04/26/2022 04/26/2022 04/26/2022 6:47 AM CDT Rule Out COVID-19 05/17/2022 05/17/2022 05/17/2022 10:20 PM SMOKEHOUSE OPERATOR Rule Out COVID-19 06/09/2022 06/09/2022 06/09/2022 9:35 AM SMOKEHOUSE OPERATOR COVID-19 06/09/2022 06/09/2022 06/30/2022 11:4 1 PM SMOKEHOUSE OPERATOR Rule Out COVID-19 11/10/2022 11/10/2022 11/11/2022 [...] as of this encounter Care Teams Healthcare Architect Relationship Specialty Start Date End Date Marija Edgar APRN CNP PCP - General Nurse Practitioner 04/30/20 04/14/23 Esha Grimm PA-C [address] [place] [address] PCP - General Family Medicine 05/04/23 Lita Oseguera Personal Advocate & Liaison (PAL) 02/28/20 03/27/23 Chanelle Mccann APRN CNM [address] [place], [facility] 200 [place] [address] Assigned OBGYN Provider 05/02/2005/09 Marija Edgar APRN INSURANCE AGENCY OWNER Assigned PCP 06/08/20 04/29/23 Mynor Broussard MD 6363 [facility] 500 [place], [place] 6[address]85 Assigned Surgical Provider 06/01/20 11/28/21 Keisha Dotson MD 909 [place], [place] 206535 Assigned Neuroscience Provider 06/04/20 04/01/23 Galo Burrell MD Assigned Heart and Vascular Provider 10/05/20 04/02/22 Diana Desir, [facility] 3033 [place] [address] Pharmacist Pharmacist 04/17/21 Rain Galaviz PA-C [address] [place] [address] [facility] 250 [place] [address] Physician Senior C Web Developer Dermatology 04/28/21 Summer Lara MD [address] [place] [address] Assigned OBGYN Provider 05/10/2105/23 Summer Lara MD [address] [place] [address] Assigned OBGYN Provider 05/31/21 Summer Lara MD [address] [place] [address] Assigned OBGYN Provider 05/24/2105/30 Tavia Wyatt MD [address] [place] [address] Dermatology 07/14/21 Johnny Murillo MD [address] [place] [address] Assigned Musculoskeletal Provider 08/30/21 03/17/22 Erica Farrell APRN INSURANCE AGENCY OWNER [address] [facility] [address] [place] [address] Nurse Practitioner Cardiovascular Disease 09/09/21 Teresita Bean [facility] [address] [place] [address] Pharmacist Pharmacist 09/24/21 09/29/21 Tavia Wyatt MD [address] [place], [place] 9386[address] Assigned Surgical Provider 11/29/21 05/07/22 Diana Desir, [facility] [address] [place] [address] Assigned MTM Pharmacist 01/02/22 Rich Barrett MD 3033 [place] [address] Physician Ophthalmology 01/21/22 Neil Knet MD 500 [place] [address] Dermatology 02/24/22 [place] DPM [address] [facility] [address] [place], [place] 230307 Assigned Musculoskeletal Provider 03/20/22 08/13/22 Erica Farrell APRN INSURANCE AGENCY OWNER 1700 [place] [address] Assigned Heart and Vascular Provider 04/03/22 04/16/22 Diana Desir, [facility] [address] [place] [address] Assigned MTM Pharmacist 04/07/22 Jelena David OD [address] [place] [address] Assigned Surgical Provider 05/08/22 10/08/22 Galo Burrell MD Assigned Heart and Vascular Provider 04/17/22 06/11/22 Livan Sharif MD [address] [place] 027115 Cardiovascular Disease 05/14/22 Livan Sharif MD [address] [place] 510785 Assigned Heart and Vascular Provider 06/12/22 07/23/22 Catherine Cm MD [address] [place] [address] [place] [address] Cardiovascular Disease 07/21/22 Valery Veronica, PA-C [address] [place] [address] 134695 Physician Senior C Web Developer Dermatology 07/21/22 Catherine Cm MD [address] [address] Assigned Heart and Vascular Provider 07/24/22 11/05/22 Johnny Murillo MD [address] [place] [address] Assigned Musculoskeletal Provider 08/14/22 10/08/22 Brea Quinn APRN INSURANCE AGENCY OWNER [address] [place] [address] 112175 Nurse Practitioner Dermatology 09/21/22 Brea Quinn APRN INSURANCE AGENCY OWNER [address] [place] [address] Assigned Surgical Provider 10/09/22 05/01/24 [place] [address] [address] Assigned Musculoskeletal Provider 10/09/22 05/01/24 Livan Sharif MD [address] [address] [place] [address] Assigned Heart and Vascular Provider 11/06/22 11/12/22 Catherine Cm MD [address] [place] [address] Assigned Heart and Vascular Provider 11/13/22 05/27/23 Sydnie Martinez RN Personal Advocate & Liaison (PAL) Family Medicine 03/28/23 07/31/23 Alfonso Renteria MD 5775 [facility] 200 [place] [address] Assigned Neuroscience Provider 04/02/23 09/29/24 Cheng Todd PA-C [address] [place] [address] Assigned PCP 04/30/23 07/15/23 Radha Lomeli APRN INSURANCE AGENCY OWNER [address] [place] [address] Assigned Heart and Vascular Provider 05/28/23 11/29/24 Jelena David OD [facility] [place] [address] Ophthalmology 06/15/23 Pao Joseph, VJ Personal Advocate & Liaison (PAL) Nurse 08/01/23 11/07/23 Esha Grimm PA-C [address] [place] [address] Assigned PCP 07/16/23 Valery Veronica PA-C [address] [place] [address] Physician Senior C Web Developer Dermatology 09/19/23 Rey Tay MD [address] [place] [address] MD Gastroenterology 09/20/23 Rocky Zepdea DO [address] [place] [address] Physician Gastroenterology 09/20/23 Philip Dumont MD [address] [place] [address] Physician Ophthalmology 09/22/23 Merdeith Carrera PA-C [address] [place] [address] Assigned Gastroenterology Provider 11/01/23 Neil Kent MD [address] [address] Dermatology 11/02/23 [place] [address] [address] Neurological Surgery 12/26/23 Audrey Waite PA-C [address] [place] [address] Physician Senior C Web Developer Dermatology 02/28/24 Valery Veronica PA-C [address]32 [address] [place] [address] Physician Senior C Web Developer Dermatology 04/10/24 Herminia Hatch MD [address] [place] [address] Assigned Rheumatology Provider 07/02/24 Jelena David OD [address] [place] [address] [place] [address] Ophthalmology 08/30/24 [place] [address] [place] [address] Assigned Neuroscience Provider 09/30/24 Maru Man PA-C [address] [place] [address] Physician Senior C Web Developer Dermatology 10/03/24 Maru Man PA-C [address] [place] [address] Physician Senior C Web Developer Dermatology 10/22/24 Jelena David OD [address] [place] [address] [place] [address] Assigned Surgical Provider 10/31/24 Fabiano Correa NP [address] [place] [address] Assigned Heart and Vascular Provider 11/30/24 documented as of this encounter
--- OUTSIDE RECORDS SUMMARY | 2024-12-17 21:42 | XMS_ITS | Encounter Summary ---
Author Organization [place] Address [address] [place] [address] Care Team Providers Care Sales Research Analyst Name Role Phone Lita Oseguera Unavailable Unavailable Marija Edgar REHAB RN ROTARY SWAGING MACHINE OPERATOR Primary Care Provider + Chanelle Mccann REHAB RN CNM Unavailab le Marija Edgar APRN ROTARY SWAGING MACHINE OPERATOR Unavailable [phone] Mynor Broussard MD Unavailable [phone] Keisha Dotson MD Unavailable [phone] Galo Burrell MD Unavailable Unavailable Diana Desir [facility] Unavailable Rain Galaviz PA-C Unavailable [phone] Summer Lara MD Unavailable [phone] Summer Lara MD Unavailable [phone] Summer Lara MD Unavailable [phone] Tavia Wyatt MD Unavailable Johnny Murillo MD Unavailable Erica Farrell REHAB RN ROTARY SWAGING MACHINE OPERATOR Unavailable Teresita Bean [facility] Unavailable [phone] Tavia Wyatt MD Unavailable DesirDiana [facility] Unavailable Rich Barrett MD Unavailable Neil Kent MD Unavailable Roney StoryM Unavailable [phone] Erica Farrell APRN ROTARY SWAGING MACHINE OPERATOR Unavailable Diana Desir [facility] Unavailable [phone] Jelena David OD Unavailable [phone] Galo Burrell MD Unavailable Unavailable Livan Sharif MD Unavailable Livan Sharif MD Unavailable Catherine Cm MD Unavailable + Valery VeronicaC Unavailable [phone] Catherine Cm MD Unavailable + Johnny Murillo MD Unavailable [phone] Brea Quinn REHAB RN ROTARY SWAGING MACHINE OPERATOR Unavailable [phone] Brea Quinn REHAB RN ROTARY SWAGING MACHINE OPERATOR Unavailable [phone] Jose Francisco Johnson MD Unavailable Livan Sharif MD Unavailable Catherine Cm MD Unavailable + Sydnie Martinez RN Unavailable Unavailable Alfonso Renteria MD Unavailable Esha GrimmC Primary Care Provider Cheng Todd-C Unavailable [phone] Radha Lomeli APRN ROTARY SWAGING MACHINE OPERATOR Unavailable [phone] Jelena David OD Unavailable Pao Joseph RN Unavailable Unavailable Alfa, Esha M PA-C Unavailable Valery Veronica PA-C Unavailable [phone] Rey Tay MD Unavailable Rocky Zepeda DO Unavailable Philip Dumont MD Unavailable Meredith Carrera PA-C Unavailable Neil Kent MD Unavailable Juan Pablo Emmanuel MD Unavailable Audrey Waite PA-C Unavailable Valery Veronica PA-C Unavailable Herminia Hatch MD Unavailable Jeelna David OD Unavailable [phone] Juan Pablo Emmanuel MD Unavailable Maru Man PA-C Unavailable Maru Man PA-C Unavailable Jelena David OD Unavailable [phone] Fabiano Correa NP Unavailable Encounter Details Date Type Department Care Team (Late st Contact Info) Description 04/28/2021 MyC Medical Advice [address] [address] Marija Edgar APRN ROTARY SWAGING MACHINE OPERATOR [address] [facility] [place] [address] Social History Tobacco Use [...] you attend [facility] or [facility] services? More than 4 times [...] Answer Date Recorded PHQ-2 Score 0 04/02/2021 [facility] [place] of Occupat ional Health - Occupational Stress [...] a senior care (including now)? No 08/11/2020 [place] Depression Scale Answer Date Recorded [place] Depression Score 5 01/14/2021 Last EPDS Self Harm Result Not on file 01/14 Education Answer Date Recorded What is the highest level of school you have completed or the highest degree you have received? 12th grade 08/07/2020 Comments No Sex and Gender Information Value Date Recorded Sex Assigned at Female 03/02/2021 5:45 PM CDT Legal Sex Female 4:13 AM TIRE CHANGER Gender Identity Female 03/02/2021 5:45 PM CDT [...] Description 12/19/2024 2:00 PM CDT Office Visit [facility] [address] [place] [address] Lauren Claudio PA-C [address] [place] [address] 12/26/2024 7:30 AM CDT Office Visit [facility] [address] [phone] Neil Kent MD [address] [place] [address] 704445 04/16/2025 11:00 AM CDT Virtual Visit [facility] [address]th [place] [phone] Meredith Carrera PA-C [address] [place] [address] 059685 documented as of this encounter Visit Diagnoses Not on filedocumented in this encounter Additional Health Concerns Infection Onset Date Last Indicated Resolved Time Rule Out COVID-19 05/11/2021 05/11/2021 05/13/2021 10:18 AM CDT Rule Out COVID-19 07/13/2021 07/13/2021 07/14/2021 3:04 PM TIRE CHANGER Rule Out COVID-19 07/18/2021 07/18/2021 07/20/2021 1:56 PM TIRE CHANGER COVID-19 07/18/2021 07/18/2021 08/08/2021 11:3 9 PM TIRE CHANGER Rule Out COVID-19 12/18/2021 12/18/2021 12/19/2021 11:34 AM CDT Rule Out COVID-19 02/24/2022 02/24/2022 02/25/2022 1:08 PM CDT Rule Out COVID-19 04/26/2022 04/26/2022 04/26/2022 6:47 AM CDT Rule Out COVID-19 05/17/2022 05/17/2022 05/17/2022 10:20 PM TIRE CHANGER Rule Out COVID-19 06/09/2022 06/09/2022 06/09/2022 9:35 AM TIRE CHANGER COVID-19 06/09/2022 06/09/2022 06/30/2022 11:4 1 PM TIRE CHANGER Rule Out COVID-19 11/10/2022 11/10/2022 11/11/2022 12:17 [...] as of this encounter Care Teams Sales Research Analyst Relationship Specialty Start Date End Date Marija Edgar APRN CNP PCP - General Nurse Practitioner 04/30/20 04/14/23 Esha Grimm PA-C [address] [place] [address] PCP - General Family Medicine 05/04/23 Lita Oseguera Personal Advocate & Liaison (PAL) 02/28/20 03/27/23 Chanelle Mccann APRN CNM [address] [place], [facility] 200 [place] [address] Assigned OBGYN Provider 05/02/2005/09 Marija Edgar APRN ROTARY SWAGING MACHINE OPERATOR Assigned PCP 06/08/20 04/29/23 Mynor Broussard MD 6363 [facility] 500 [place], [place] [address] Assigned Surgical Provider 06/01/20 11/28/21 Keisha Dotson MD 909 [place], [place] 743695 Assigned Neuroscience Provider 06/04/20 04/01/23 Galo Burrell MD Assigned Heart and Vascular Provider 10/05/20 04/02/22 [facility] [address] [place] [address] Pharmacist Pharmacist 04/17/21 Rain Galaviz PA-C 5 [facility] [address] 250 [facility] [place] [address] Physician Email Marketing Assistant Dermatology 04/28/21 Summer Lara MD [address] [place] [address] Assigned OBGYN Provider 05/10/2105/23 Summer Lara MD 606 [facility] [place] [address] Assigned OBGYN Provider 05/31/21 2 Summer Lara MD 606 [facility] [place] [address] Assigned OBGYN Provider 05/24/2105/30 Tavia Wyatt MD [address] [place] [address] Dermatology 07/14/21 Johnny Murillo MD [facility] [facility] [address] [place] [address] Assigned Musculoskeletal Provider 08/30/21 03/17/22 Erica aFrrell APRN [facility] 6405 [facility] [address] [place] [address] Nurse Practitioner Cardiovascular Disease 09/09/21 Teresita Bean [facility] [address] [place] [address] Pharmacist Pharmacist 09/24/21 09/29/21 Tavia Wyatt MD [address] [place] [address] Assigned Surgical Provider 11/29/21 05/07/22 Diana Desir [facility] 3033 [place] [address] Assigned MTM Pharmacist 01/02/22 Rich Barrett MD 3033 [place] [address] Physician Ophthalmology 01/21/22 Neil Kent MD 500 [place] [address] Dermatology 02/24/22 Roney Story DPM [address] [facility] [address] [place] [address] Assigned Musculoskeletal Provider 03/20/22 08/13/22 Erica Farrell APRN ROTARY SWAGING MACHINE OPERATOR 1700 [place] [address] Assigned Heart and Vascular Provider 04/03/22 04/16/22 Diana Desir, [facility] 3033 [place] [address] Assigned MTM Pharmacist 04/07/22 [place] [address] [facility] [place] [address] Assigned Surgical Provider 05/08/22 10/08/22 Galo Burrell MD Assigned Heart and Vascular Provider 04/17/22 06/11/22 Livan Sharif MD 6405 [facility] [address] [place] 507295 Cardiovascular Disease 05/14/22 Livan Sharif MD [address] [place] [address] [place] 357775 Assigned Heart and Vascular Provider 06/12/22 07/23/22 Catherine Cm MD [address] [place] [address] [place] 888215 Cardiovascular Disease 07/21/22 Valery Veronica, PA-C [address] [place] [address] 222355 Physician Email Marketing Assistant Dermatology 07/21/22 Catherine Cm MD [address] [place] [address] [address] [place] 531705 Assigned Heart and Vascular Provider 07/24/22 11/05/22 Johnny Murillo MD [address] [place] [address] 088924 Assigned Musculoskeletal Provider 08/14/22 10/08/22 Brea Quinn APRN ROTARY SWAGING MACHINE OPERATOR [address] [place] [address] 119615 Nurse Practitioner Dermatology 09/21/22 Brea Quinn APRN ROTARY SWAGING MACHINE OPERATOR [address] [place] [address] [place] [id number] Assigned Surgical Provider 10/09/22 05/01/24 [place] [address] [place] [address] [place] [address] [place] [id number] Assigned Musculoskeletal Provider 10/09/22 05/01/24 Livan Sharif MD [address] [facility] [address] [place] 36[address]25 Assigned Heart and Vascular Provider 11/06/22 11/12/22 Catherine Cm MD [address] [place] [address] [place], [place] [address] Assigned Heart and Vascular Provider 11/13/22 05/27/23 Sydnie Martinez RN Personal Advocate & Liaison (PAL) Family Medicine 03/28/23 07/31/23 Alfonso Renteria MD [address] [facility] 200 [place] [address] Assigned Neuroscience Provider 04/02/23 09/29/24 Cheng Todd PA-C [address] [place] [address] [phone] Assigned PCP 04/30/23 07/15/23 Radha Lomeli, ARLENE ROTARY SWAGING MACHINE OPERATOR [address] 00 [place] 409025 Assigned Heart and Vascular Provider 05/28/23 11/29/24 Jelena David OD 3305 [facility] [place] [address] Ophthalmology 06/15/23 Pao Joseph RN Personal Advocate & Liaison (PAL) Nurse 08/01/23 11/07/23 Esha Grimm PAUcheC [address] [place] [address] Assigned PCP 07/16/23 Valery Veronica PA-C [address] [place] [address] Physician Email Marketing Assistant Dermatology 09/19/23 Rey Tay MD [address] [place] [address] MD Gastroenterology 09/20/23 Rocky Zepeda DO [address] [place] [address] 524775 Physician Gastroenterology 09/20/23 Philip Dumont MD [address] [place] [address] Physician Ophthalmology 09/22/23 Meredith Carrera PA-C [address] [place] [address] 935575 Assigned Gastroenterology Provider 11/01/23 Neil Kent MD [address] [phone] Dermatology 11/02/23 [place] [address] [facility] [place] [address] Neurological Surgery 12/26/23 Audrey Waite PA-C [address] [place] [address] 256365 Physician Email Marketing Assistant Dermatology 02/28/24 Valery Veronica PA-C [address] [place] [address] Physician Email Marketing Assistant Dermatology 04/10/24 Herminia Hatch MD [facility]5 [place] [address] Assigned Rheumatology Provider 07/02/24 Jelena David, SONJA 3305 [facility] [place] [address] Ophthalmology 08/30/24 [place] [address] [place] [address] Assigned Neuroscience Provider 09/30/24 Maru Man PA-C [address] [place] [address] 024910 Physician Email Marketing Assistant Dermatology 10/03/24 Maru Man PA-C [address] [place] [address] Physician Email Marketing Assistant Dermatology 10/22/24 Jelena David OD [address] [place] [address] Assigned Surgical Provider 10/31/24 Fabiano Correa, BRYCE [address] [place] [address] Assigned Heart and Vascular Provider 11/30/24 documented as of this encounter
--- OUTSIDE RECORDS SUMMARY | 2024-12-17 21:42 | XMS_ITS | Encounter Summary ---
Author Organization [place] Address [address] [place] [address] Care Team Providers Care Automotive Welder Name Role Phone Lita Oseguera Unavailable Unavailable Marija Edgar OXYGEN THERAPY TEACHER SECURITIES ATTORNEY Primary Care Provider + Chanelle Mccann OXYGEN THERAPY TEACHER CNM Unavailab le Marija Edgar APRN SECURITIES ATTORNEY Unavailable Mynor Broussard MD Unavailable [phone] Keisha Dotson MD Unavailable Galo Burrell MD Unavailable Unavailable Diana Desir [facility] Unavailable Rain Galaviz PA-C Unavailable Summer Lara MD Unavailable [phone] Summer Lara MD Unavailable [phone] Summer Lara MD Unavailable [phone] Tavia Wyatt MD Unavailable Johnny Murillo MD Unavailable Erica Farrell OXYGEN THERAPY TEACHER SECURITIES ATTORNEY Unavailable Teresita Bean [facility] Unavailable [phone] Tavia Wyatt MD Unavailable DesirDiana [facility] Unavailable Rich Barrett MD Unavailable Neil Kent MD Unavailable Roney StoryM Unavailable [phone] Erica Farrell APRN SECURITIES ATTORNEY Unavailable Diana Desir [facility] Unavailable [phone] Jelena David OD Unavailable [phone] Galo Burrell MD Unavailable Unavailable Livan Sharif MD Unavailable Livan Sharif MD Unavailable Catherine Cm MD Unavailable + Valery VeronicaC Unavailable [phone] Catherine Cm MD Unavailable + Johnny Murillo MD Unavailable [phone] Brea Quinn OXYGEN THERAPY TEACHER SECURITIES ATTORNEY Unavailable [phone] Brea Quinn OXYGEN THERAPY TEACHER SECURITIES ATTORNEY Unavailable [phone] Jose Francisco Johnson MD Unavailable Livan Sharif MD Unavailable Catherine Cm MD Unavailable + Sydnie Martinez RN Unavailable Unavailable Alfonso Renteria MD Unavailable Esha GrimmC Primary Care Provider Cheng Todd-C Unavailable [phone] Radha Lomeli APRN SECURITIES ATTORNEY Unavailable [phone] Jelena David OD Unavailable [phone] Pao Joseph RN Unavailable Unavailable Alfa, Esha M PA-C Unavailable [phone] Valery Veronica PA-C Unavailable Rey Tay MD Unavailable Rocky Zepeda DO Unavailable Philip Dumont MD Unavailable Meredith Carrera PA-C Unavailable [phone] Neil Kent MD Unavailable Juan Pbalo Emmanuel MD Unavailable [phone] Audrey Waite PA-C Unavailable Valery Veronica PA-C Unavailable [phone] Herminia Hatch MD Unavailable Jelena David OD Unavailable Juan Pablo Emmanuel MD Unavailable [phone] Maru Man PA-C Unavailable Maru Man PA-C Unavailable Jelena David OD Unavailable [phone] Fabiano Correa NP Unavailable Encounter Details Date Type Department Care Team (Late st Contact Info) Description 05/05/2021 MyC Medical Advice [address] [address] Lauren Gan, RN Social History [...] Answer Date Recorded PHQ-2 Score 0 04/02/2021 [facility] [place] of Occupat ional Health - Occupational Stress [...] in a detention (including now)? No 08/11/2020 [place] Depression Scale Answer Date Recorded [place] Depression Score 5 01/14/2021 Last EPDS Self Harm Result Not on file 01/14 Education Answer Date Recorded What is the highest level of school you have completed or the highest degree you have received? 12th grade 08/07/2020 Comments No Sex and Gender Information Value Date Recorded Sex Assigned at Female 03/02/2021 5:45 PM CDT Legal Sex Female 4:13 AM HOME HEALTH MANAGER Gender Identity Female 03/02/2021 5:45 PM [...] Description 12/19/2024 2:00 PM CDT Office Visit [facility] [address] [place] [phone] Lauren Claudio PA-C [address] [place] [address] [phone] 12/26/2024 7:30 AM CDT Office Visit [facility] [address] [phone] Neil Kent MD [address] [place] [address] 526035 04/16/2025 11:00 AM CDT Virtual Visit [facility] Gastroenterology Clinic [address] 4th [place] [phone] Meredith Carrera PA-C [address] [place] [address] documented as of this encounter Visit Diagnoses Not on filedocumented in this encounter Additional Health Concerns Infection Onset Date Last Indicated Resolved Time Rule Out COVID-19 05/11/2021 05/11/2021 05/13/2021 10:18 AM CDT Rule Out COVID-19 07/13/2021 07/13/2021 07/14/2021 3:04 PM HOME HEALTH MANAGER Rule Out COVID-19 07/18/2021 07/18/2021 07/20/2021 1:56 PM HOME HEALTH MANAGER COVID-19 07/18/2021 07/18/2021 08/08/2021 11:3 9 PM HOME HEALTH MANAGER Rule Out COVID-19 12/18/2021 12/18/2021 12/19/2021 11:34 AM CDT Rule Out COVID-19 02/24/2022 02/24/2022 02/25/2022 1:08 PM CDT Rule Out COVID-19 04/26/2022 04/26/2022 04/26/2022 6:47 AM CDT Rule Out COVID-19 05/17/2022 05/17/2022 05/17/2022 10:20 PM HOME HEALTH MANAGER Rule Out COVID-19 06/09/2022 06/09/2022 06/09/2022 9:35 AM HOME HEALTH MANAGER COVID-19 06/09/2022 06/09/2022 06/30/2022 11:4 1 PM HOME HEALTH MANAGER Rule Out COVID-19 11/10/2022 11/10/2022 11/11/2022 [...] as of this encounter Care Teams Automotive Welder Relationship Specialty Start Date End Date Marija Edgar APRN CNP PCP - General Nurse Practitioner 04/30/20 04/14/23 Esha Grimm PA-C [address] [place] [address] PCP - General Family Medicine 05/04/23 Lita Oseguera Personal Advocate & Liaison (PAL) 02/28/20 03/27/23 Chanelle Mccann APRN CNM [address] [place], [facility] 200 [place] [address] Assigned OBGYN Provider 05/02/2005/09 Marija Edgar APRN SECURITIES ATTORNEY Assigned PCP 06/08/20 04/29/23 Mynor Broussard MD 6363 [facility] 500 [place], [place] 868595 Assigned Surgical Provider 06/01/20 11/28/21 Keisha Dotson MD 909 [place], [place] 360225 Assigned Neuroscience Provider 06/04/20 04/01/23 Galo Burrell MD Assigned Heart and Vascular Provider 10/05/20 04/02/22 Diana Desir, [facility] [address] [place] [address] Pharmacist Pharmacist 04/17/21 Rain Galaviz PA-C [address] [place] [address] [facility] 250 [place] [address] Physician Deputy Grand Jury Dermatology 04/28/21 Summer Lara MD [address] [address] Assigned OBGYN Provider 05/10/2105/23 Summer Lara MD [address] [address] Assigned OBGYN Provider 05/31/21 Summer Lara MD [address] [address] Assigned OBGYN Provider 05/24/2105/30 Tavia Wyatt MD [address] [address] Dermatology 07/14/21 Johnny Murillo MD [address] [place] [address] Assigned Musculoskeletal Provider 08/30/21 03/17/22 Erica Farrell APRN SECURITIES ATTORNEY 6405 [facility] [address] [place] [address] Nurse Practitioner Cardiovascular Disease 09/09/21 Teresita Bean, [facility] [address] [place] [place], [place] [phone] Pharmacist Pharmacist 09/24/21 09/29/21 Tavia Wyatt MD [address] [place], [place] 310810 Assigned Surgical Provider 11/29/21 05/07/22 Diana Desir, [facility] [address] [place] [address] Assigned MTM Pharmacist 01/02/22 Rich Barrett MD [address] [place] [address] Physician Ophthalmology 01/21/22 Neil Kent MD 500 [place] [address] Dermatology 02/24/22 Roney Story DPM [address] [facility] [address] [place], [place] 182197 Assigned Musculoskeletal Provider 03/20/22 08/13/22 Erica Farrell APRN SECURITIES ATTORNEY 1700 [place] [address] Assigned Heart and Vascular Provider 04/03/22 04/16/22 Diana Desir, [facility] [address] [place] [address] Assigned MTM Pharmacist 04/07/22 [place] OD [address] [place] [address] Assigned Surgical Provider 05/08/22 10/08/22 Galo Burrell MD Assigned Heart and Vascular Provider 04/17/22 06/11/22 Livan Sharif MD [address] [address] [place] 544755 Cardiovascular Disease 05/14/22 Livan Sharif MD [address] [place] [address] [place] 473475 Assigned Heart and Vascular Provider 06/12/22 07/23/22 Catherine Cm MD [address] [address] Cardiovascular Disease 07/21/22 Valery Veronica, PA-C [address] [place] [address] Physician Deputy Grand Jury Dermatology 07/21/22 Catherine Cm MD [address] [address] Assigned Heart and Vascular Provider 07/24/22 11/05/22 Johnny Murillo MD [address] [place] [address] Assigned Musculoskeletal Provider 08/14/22 10/08/22 Brea Quinn APRN SECURITIES ATTORNEY [address] [place] [address] 534915 Nurse Practitioner Dermatology 09/21/22 Brea Quinn APRN SECURITIES ATTORNEY [address] [place] [address] Assigned Surgical Provider 10/09/22 05/01/24 [place] [address] [address] Assigned Musculoskeletal Provider 10/09/22 05/01/24 Livan Sharif MD [address] [place] [address] [place] [address] Assigned Heart and Vascular Provider 11/06/22 11/12/22 Catherine Cm MD [address] [place] [address] [place] [address] Assigned Heart and Vascular Provider 11/13/22 05/27/23 Sydnie Martinez RN Personal Advocate & Liaison (PAL) Family Medicine 03/28/23 07/31/23 Alfonso Renteria MD 5775 [facility] 200 [place] [address] Assigned Neuroscience Provider 04/02/23 09/29/24 Cheng Todd PA-C [address] [place] [address] Assigned PCP 04/30/23 07/15/23 Radha Lomeli APRN SECURITIES ATTORNEY [address] [place] [address] Assigned Heart and Vascular Provider 05/28/23 11/29/24 Jelena David OD [facility] [place] [address] Ophthalmology 06/15/23 Pao Joseph, VJ Personal Advocate & Liaison (PAL) Nurse 08/01/23 11/07/23 Esha Grimm PA-C [address] [place] [address] Assigned PCP 07/16/23 Valery Veronica PA-C 9 [place] [address] Physician Deputy Grand Jury Dermatology 09/19/23 Rey Tay MD [address] [place] [address] MD Gastroenterology 09/20/23 Rocky Zepeda DO [address] [place] [address] Physician Gastroenterology 09/20/23 Philip Dumont MD [address] [place] [address] Physician Ophthalmology 09/22/23 Meredith Carrera PA-C [address] [place] [address] Assigned Gastroenterology Provider 11/01/23 Neil Kent MD [address] [address] Dermatology 11/02/23 [place] [address] [place] [address] 455297 Neurological Surgery 12/26/23 Audrey Waite PA-C [address] [place] [address] Physician Deputy Grand Jury Dermatology 02/28/24 Valery Veronica PA-C [address]20 [address] [place] [address] Physician Deputy Grand Jury Dermatology 04/10/24 Herminia Hatch MD [address] [place] [address] Assigned Rheumatology Provider 07/02/24 Jelena David OD [address] [place] [address] [place] [address] Ophthalmology 08/30/24 [place] [address] [place] [address] Assigned Neuroscience Provider 09/30/24 Maru Man PA-C [address] [place] [address] Physician Deputy Grand Jury Dermatology 10/03/24 Maru Man PA-C [address] [place] [address] Physician Deputy Grand Jury Dermatology 10/22/24 Jelena David OD [address] [place] [address] [place] [address] Assigned Surgical Provider 10/31/24 Fabiano Correa NP [address] [place] [address] Assigned Heart and Vascular Provider 11/30/24 documented as of this encounter
--- OUTSIDE RECORDS SUMMARY | 2024-12-17 21:42 | XMS_ITS | Encounter Summary ---
Author Organization [facility] Address [address] [place] [address] Care Team Providers Care Cop Name Role Phone Lita Oseguera Unavailable Unavailable Marija Edgar APRN RECREATIONAL THERAPY AIDE Primary Care Provider + Marija Edgar APRN RECREATIONAL THERAPY AIDE Unavailable Keisha Dotson MD Unavailable Diana Desir [facility] Unavailable [phone] Rain Galaviz PA-C Unavailable Tavia Wyatt MD Unavailable Erica Farrell APRN RECREATIONAL THERAPY AIDE Unavailable Rich Barrett MD Unavailable [phone] Neil Kent MD Unavailable Diana Desir [facility] Unavailable Jeelna David OD Unavailable [phone] Livan Sharif MD Unavailable Catherine Cm MD Unavailable + Valery Veronica PA-C Unavailable Catherine Cm MD Unavailable + Johnny Murillo MD Unavailable [phone] Brea Quinn ASSEMBLER SEMICONDUCTOR RECREATIONAL THERAPY AIDE Unavailable [phone] Brea Quinn ASSEMBLER SEMICONDUCTOR RECREATIONAL THERAPY AIDE Unavailable [phone] Jose Francisco Johnson MD Unavailable Livan Sharif MD Unavailable Catherine mC MD Unavailable + Sydnie Martinez RN Unavailable Unavailable Alfonso Renteria MD Unavailable [phone] Esha Grimm PA-C Primary Care Provider Cheng Todd PA-C Unavailable [phone] Radha Lomeli APRN RECREATIONAL THERAPY AIDE Unavailable Jelena David OD Unavailable Pao Joseph RN Unavailable Unavailable Esha Grimm PA-C Unavailable [phone] Valery Veronica PA-C Unavailable Rey Tay MD Unavailable Rocky Zepeda DO Unavailable Philip Dumont MD Unavailable Meredith Crarera PA-C Unavailable [phone] Neil Kent MD Unavailable Juan Pablo Emmanuel MD Unavailable Audrey Waite PA-C Unavailable Valery Veronica PA-C Unavailable Herminia Hatch MD Unavailable Jelena David OD Unavailable Juan Pablo Emmanuel MD Unavailable Maru Man PA-C Unavailable + Maru Man PA-C Unavailable + Jelena David OD Unavailable Fabiano Correa WEB PRESS OPERATOR ASSISTANT Unavailable Encounter Details Date Type Department Care Team (Late st Contact Info) Description 10/06/2022 MyC Medical Advice [facility] [address] [place] [address] [place] [address] Brea Quinn APRN [facility] [address] [facility] [address] Social History Tobacco Use Types Packs/Day [...] How often do you attend pentecostal or evangelical serv ices? Never 09/22/2021 Do you belong to any clubs o r organizations such as pentecostal groups, unions, fraternal or athletic groups, or school groups? No 09/22/2021 Attends Club or Organization Meetings Not on slhomo e 09/22/2021 Are you , , di [...] points; Administer PHQ-9 if positive 1 10/10/2022 [facility] [...] in a detention (including now)? No 09/22/2021 Bryan Depression Scale Answer Date Recorded Bryan Depression Score 5 01/14/2021 Last EPDS Self Harm Result Not on file 01/14 Education Answer Date Recorded What is the highest level of school you have completed or the highest degree you have received? 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 documented as of this encounter Care Teams Cop Relationship Specialty Start Date End Date Marija Edgar APRN CNP PCP - General Nurse Practitioner 04/30/20 04/14/23 Esha Grimm PA-C [address] [place] [phone] PCP - General Family Medicine 05/04/23 Lita Oseguera Personal Advocate & Liaison (PAL) 02/28/20 03/27/23 Marija Edgar APRN RECREATIONAL THERAPY AIDE Assigned PCP 06/08/20 04/29/23 Keisha Dotson MD [address] [place], [place] 127565 Assigned Neuroscience Provider 06/04/20 04/01/23 [facility] [address] [place], [place] 811536 Pharmacist Pharmacist 04/17/21 Rain Galaviz PA-C [address] [place] [address] [address] [place] [address] Physician Guest Experience Specialist Dermatology 04/28/21 Tavia Wyatt MD [address] [place] [address] DR [facility] [facility] [place] [address] Dermatology 07/14/21 Erica Farrell APRN RECREATIONAL THERAPY AIDE [address] [place] [address] Nurse Practitioner Cardiovascular Disease 09/09/21 Rich Barrett MD [address] [place] 464645 Physician Ophthalmology 01/21/22 Neil Kent MD 500 [place], [place] 791985 Dermatology 02/24/22 Diana Desir, [facility] 3033 [place] [address] Assigned MTM Pharmacist 04/07/22 Jelena David OD [address] [facility] [place] [address] Assigned Surgical Provider 05/08/22 10/08/22 Livan Shairf MD [address] [place] 176875 Cardiovascular Disease 05/14/22 Catherine Cm MD [address] [place] 918695 Cardiovascular Disease 07/21/22 Valery Veronica, PA-C [address] [place] [address] [phone] Physician Guest Experience Specialist Dermatology 07/21/22 Catherine Cm MD [address] [place] 248405 Assigned Heart and Vascular Provider 07/24/22 11/05/22 Johnny Murillo MD [facility] [address] 012764 Assigned Musculoskeletal Provider 08/14/22 10/08/22 Brea Quinn APRN RECREATIONAL THERAPY AIDE [address] [place] [address] 985195 Nurse Practitioner Dermatology 09/21/22 Brea Quinn APRN RECREATIONAL THERAPY AIDE [address] [facility] [place] [address] Assigned Surgical Provider 10/09/22 05/01/24 [place] [address] [address] Assigned Musculoskeletal Provider 10/09/22 05/01/24 Livan Sharif MD [address] [facility]00 [place] [address] Assigned Heart and Vascular Provider 11/06/22 11/12/22 Catherine Cm MD [address] [place] 2062400 [place] [address] Assigned Heart and Vascular Provider 11/13/22 05/27/23 Sydnie Martinez, RN Personal Advocate & Liaison (PAL) Family Medicine 03/28/23 07/31/23 Alfonso Renteria MD [address]75 [facility] 200 [place] [address] Assigned Neuroscience Provider 04/02/23 09/29/24 Cheng Todd PA-C [address] [place] [address] [phone] Assigned PCP 04/30/23 07/15/23 Radha Lomeli APRN RECREATIONAL THERAPY AIDE [address] [place] [address] Assigned Heart and Vascular Provider 05/28/23 11/29/24 Jelena David OD [address] [facility] [place] [address] MD Ophthalmology 06/15/23 Pao Joseph, RN Personal Advocate & Liaison (PAL) Nurse 08/01/23 11/07/23 Esha Grimm PA-C [address] [place] [address] Assigned PCP 07/16/23 Valery Veronica PA-C [address] [place] [address] 515785 Physician Guest Experience Specialist Dermatology 09/19/23 Rey Tay MD [address] [place] [address] MD Gastroenterology 09/20/23 Rocky Zepeda DO [address] [place] [address] 481435 Physician Gastroenterology 09/20/23 Philip Dumont MD [address] [place] [address] 107685 Physician Ophthalmology 09/22/23 Meredith Carrera PA-C [address] [place] [address] 499005 Assigned Gastroenterology Provider 11/01/23 Neil Kent MD [address] [place] [address] 777490 Dermatology 11/02/23 [place] [address] [place] [address] Neurological Surgery 12/26/23 Audrey Waite PA-C 500 [place] [address] Physician Guest Experience Specialist Dermatology 02/28/24 Valery Veronica PA-C 990364 [place] [address] Physician Guest Experience Specialist Dermatology 04/10/24 Herminia Hatch MD [address] [place] [address] [phone] Assigned Rheumatology Provider 07/02/24 Jelena David, SONJA [address] [place] [address] [place] [address] Ophthalmology 08/30/24 [place] [address] [place] [address] Assigned Neuroscience Provider 09/30/24 Maru Man PA-C [address] [place] [address] Physician Guest Experience Specialist Dermatology 10/03/24 Maru Man PA-C [address] [place] [address] Physician Guest Experience Specialist Dermatology 10/22/24 Jelena David OD [address] [place] [address] [place] [address] Assigned Surgical Provider 10/31/24 Fabiano Correa NP [address] [place] [address] Assigned Heart and Vascular Provider 11/30/24 documented as of this encounter
--- OUTSIDE RECORDS SUMMARY | 2024-12-17 21:42 | XMS_ITS | Encounter Summary ---
Author Organization [facility] Address [address] [place] [address] Care Team Providers Care Surgery Specialist Name Role Phone Lita Oseguera Unavailable Unavailable Marija Edgar SPIRAL TUBE WINDER HELPER BRANCH MECHANIC Primary Care Provider + Chanelle Mccann SPIRAL TUBE WINDER HELPER CNM Unavailab le Marija Edgar APRN BRANCH MECHANIC Unavailable Mynor Broussard MD Unavailable [phone] Keisha Dotson MD Unavailable [phone] aGlo Burrell MD Unavailable Unavailable Diana Desir [facility] Unavailable Rain Galaviz PA-C Unavailable [phone] Summer Lara MD Unavailable [phone] Summer Lara MD Unavailable [phone] Summer Lara MD Unavailable [phone] Tavia Wyatt MD Unavailable Johnny Murillo MD Unavailable [phone] Erica Farrell SPIRAL TUBE WINDER HELPER BRANCH MECHANIC Unavailable Teresita Bean [facility] Unavailable Tavia Wyatt MD Unavailable DesirDiana [facility] Unavailable Rich Barrett MD Unavailable Neil Kent MD Unavailable Roney StoryM Unavailable [phone] Erica Farrell APRN BRANCH MECHANIC Unavailable Diana Desir [facility] Unavailable [phone] Jelena David OD Unavailable Galo Burrell MD Unavailable Unavailable Livan Sharif MD Unavailable Livan Sharif MD Unavailable Catherine Cm MD Unavailable + Valery VeronicaC Unavailable [phone] Catherine Cm MD Unavailable + Johnny Murillo MD Unavailable [phone] Brea Quinn SPIRAL TUBE WINDER HELPER BRANCH MECHANIC Unavailable [phone] Brea Quinn SPIRAL TUBE WINDER HELPER BRANCH MECHANIC Unavailable [phone] Jose Francisco Johnson MD Unavailable Livan Sharif MD Unavailable Catherine Cm MD Unavailable + Sydnie Martinez RN Unavailable Unavailable Alfonso Renteria MD Unavailable Esha GrimmC Primary Care Provider Cheng Todd-C Unavailable [phone] Radha Lomeli APRN BRANCH MECHANIC Unavailable [phone] Jelena David OD Unavailable Pao Joseph RN Unavailable Unavailable [place], Esha M PA-C Unavailable [phone] Valery Veronica PA-C Unavailable Rey Tay MD Unavailable Rocky Zepeda DO Unavailable Philip Dumont MD Unavailable Meredith Carrera PA-C Unavailable Neil Kent MD Unavailable Juan Pablo Emmanuel MD Unavailable Audrey Waite PA-C Unavailable JeremíasValery admon PA-C Unavailable Herminia Hatch MD Unavailable Jelena David OD Unavailable [phone] Juan Pablo Emmanuel MD Unavailable Maru Man PA-C Unavailable Maru Man PA-C Unavailable Jelena David OD Unavailable [phone] Fabiano Correa NP Unavailable Encounter Details Date Type Department Care Team (Late st Contact Info) Description 04/17/2021 MyC Medical Advice [address] [address] Marija Edgar APRN BRANCH MECHANIC [address] [facility] [place] [address] Social History Tobacco [...] often do you attend [facility] or [facility] services? More than 4 times [...] Date Recorded PHQ-2 Score 0 04/02/2021 [facility] of Occupat ional Health - Occupational Stress [...] in a retirement (including now)? No 08/11/2020 Alcoa Depression Scale Answer Date Recorded [place]a Depression Score 5 01/14/2021 Last EPDS Self Harm Result Not on file 01/14 Education Answer Date Recorded What is the highest level of school you have completed or the highest degree you have received? 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 [address] [phone] Neil Kent MD [address] [place] [address] 352975 04/16/2025 11:00 AM CDT Virtual Visit [facility] [place] [address] [place] [address] 4th [place] [phone] Meredith Carrera PA-C [address] [place] [address] documented as of this encounter Visit Diagnoses Not on filedocumented in this encounter Additional Health Concerns Infection Onset Date Last Indicated Resolved Time Rule Out COVID-19 05/11/2021 05/11/2021 05/13/2021 10:18 AM CDT Rule Out COVID-19 07/13/2021 07/13/2021 07/14/2021 3:04 PM ADULT SERVICES LIBRARIAN Rule Out COVID-19 07/18/2021 07/18/2021 07/20/2021 1:56 PM ADULT SERVICES LIBRARIAN COVID-19 07/18/2021 07/18/2021 08/08/2021 11:3 9 PM ADULT SERVICES LIBRARIAN Rule Out COVID-19 12/18/2021 12/18/2021 12/19/2021 11:34 AM CDT Rule Out COVID-19 02/24/2022 02/24/2022 02/25/2022 1:08 PM CDT Rule Out COVID-19 04/26/2022 04/26/2022 04/26/2022 6:47 AM CDT Rule Out COVID-19 05/17/2022 05/17/2022 05/17/2022 10:20 PM ADULT SERVICES LIBRARIAN Rule Out COVID-19 06/09/2022 06/09/2022 06/09/2022 9:35 AM ADULT SERVICES LIBRARIAN COVID-19 06/09/2022 06/09/2022 06/30/2022 11:4 1 PM ADULT SERVICES LIBRARIAN Rule Out COVID-19 11/10/2022 11/10/2022 11/11/2022 [...] as of this encounter Care Teams Surgery Specialist Relationship Specialty Start Date End Date Marija Edgar APRN CNP PCP - General Nurse Practitioner 04/30/20 04/14/23 sEha Grimm PA-C [address] [place] [address] PCP - General Family Medicine 05/04/23 Lita Oseguera Personal Advocate & Liaison (PAL) 02/28/20 03/27/23 Chanelle Mccann APRN CNM [address] [place], [facility] 200 [place] [address] Assigned OBGYN Provider 05/02/2005/09 Marija Edgar APRN BRANCH MECHANIC Assigned PCP 06/08/20 04/29/23 Mynor Broussard MD 6[address] [facility] 500 [place], [place] 254025 Assigned Surgical Provider 06/01/20 11/28/21 Keisha Dotson MD 909 [place], [place] 367305 Assigned Neuroscience Provider 06/04/20 04/01/23 Galo Burrell MD Assigned Heart and Vascular Provider 10/05/20 04/02/22 [facility] [address] [place] [address] Pharmacist Pharmacist 04/17/21 Rain Galaviz PA-C [address] [place] [address] [address] [place] [address] Physician Intelligence Senior Sergeant Dermatology 04/28/21 Summer Lara MD 606 [facility] [place] [address] Assigned OBGYN Provider 05/10/2105/23 Summer Lara MD [address] [place] [address] Assigned OBGYN Provider 05/31/21 2 Summer Lara MD [address] [place] [address] Assigned OBGYN Provider 05/24/2105/30 Tavia Wyatt MD [address] [place] [address] Dermatology 07/14/21 Johnny Murillo MD [facility] [place] [address] Assigned Musculoskeletal Provider 08/30/21 03/17/22 Erica Farrell APRN [facility] [address] [facility] [address] [place] [address] Nurse Practitioner Cardiovascular Disease 09/09/21 Teresita Bean [facility] [address] [place] [address] Pharmacist Pharmacist 09/24/21 09/29/21 Tavia Wyatt MD [address] [place] [address] Assigned Surgical Provider 11/29/21 05/07/22 Diana Desir, [facility] 3033 [place] [address] Assigned MTM Pharmacist 01/02/22 Rich Barrett MD 3033 [place] [address] Physician Ophthalmology 01/21/22 Neil Kent MD 500 [place] [address] Dermatology 02/24/22 Roney Story DPM [address] [facility] [address] [place] [address] Assigned Musculoskeletal Provider 03/20/22 08/13/22 Erica Farrell APRN BRANCH MECHANIC 1700 [place] [address] Assigned Heart and Vascular Provider 04/03/22 04/16/22 Diana Desir, [facility] 30[address] [place] [address] Assigned MTM Pharmacist 04/07/22 Jelena David OD [address] [facility] [place] [address] Assigned Surgical Provider 05/08/22 10/08/22 Galo Burrell MD Assigned Heart and Vascular Provider 04/17/22 06/11/22 Livan Sharif MD 6[address] [facility] [address] [place] [id number] Cardiovascular Disease 05/14/22 Livan Sharif MD [address] [place] 5229800 [place] 909615 Assigned Heart and Vascular Provider 06/12/22 07/23/22 Catherine Cm MD [address] [place] [address] [place] 729255 Cardiovascular Disease 07/21/22 Valery Veronica, PA-C [address] [place] [address] 844845 Physician Intelligence Senior Sergeant Dermatology 07/21/22 Catherine Cm MD [address] [place] [address] [place] 991725 Assigned Heart and Vascular Provider 07/24/22 11/05/22 Johnny Murillo MD [address] [place] [address] 784064 Assigned Musculoskeletal Provider 08/14/22 10/08/22 Brea Quinn APRN BRANCH MECHANIC [address] [place] [address] 087965 Nurse Practitioner Dermatology 09/21/22 Brea Quinn APRN BRANCH MECHANIC [address] [place] [address] [place] 804242 Assigned Surgical Provider 10/09/22 05/01/24 [place] [address] [place] [address] [place] 872567 Assigned Musculoskeletal Provider 10/09/22 05/01/24 Livan Sharif MD [address] [facility] [address] [place] 839375 Assigned Heart and Vascular Provider 11/06/22 11/12/22 Catherine Cm MD [address] [place] [address] Assigned Heart and Vascular Provider 11/13/22 05/27/23 Sydnie [place] RN Personal Advocate & Liaison (PAL) Family Medicine 03/28/23 07/31/23 Alfonso Renteria MD 5775 [facility] 200 [place] [address] Assigned Neuroscience Provider 04/02/23 09/29/24 Cheng Todd PA-C [address] [place] [address] [phone] Assigned PCP 04/30/23 07/15/23 Radha Lomeli APRN BRANCH MECHANIC [address] [place] [address] Assigned Heart and Vascular Provider 05/28/23 11/29/24 Jelena David OD [address] [facility] [place] [address] Ophthalmology 06/15/23 Pao Joseph RN Personal Advocate & Liaison (PAL) Nurse 08/01/23 11/07/23 Esha Grimm PAUcheC [address] [place] [address]-949783 Assigned PCP 07/16/23 Valery Veronica PA-C [address] [place] [address] Physician Intelligence Senior Sergeant Dermatology 09/19/23 Rey Tay MD [address] [place] [address] MD Gastroenterology 09/20/23 Rocky Zepeda DO [address] [place] [address] 033685 Physician Gastroenterology 09/20/23 Philip Dumont MD [address] [place] [address] Physician Ophthalmology 09/22/23 Meredith Carrera PA-C [address] [place] [address] 544515 Assigned Gastroenterology Provider 11/01/23 Neil Kent MD [address] 147330 Dermatology 11/02/23 [place] [address] [facility] [place] [address] Neurological Surgery 12/26/23 Audrey Waite PA-C [address] [place] [address] 601805 Physician Intelligence Senior Sergeant Dermatology 02/28/24 Valery Veronica PA-C [address] [place] [address] Physician Intelligence Senior Sergeant Dermatology 04/10/24 Herminia Hatch MD [facility]5 [place] [address] Assigned Rheumatology Provider 07/02/24 Jelena David, OD [address] [facility] [place] [address] Ophthalmology 08/30/24 [place] [address] [place] [address] Assigned Neuroscience Provider 09/30/24 Maru Man PA-C [address] [place] [address] 732140 Physician Intelligence Senior Sergeant Dermatology 10/03/24 Maru Man PA-C [address] [place] [address] Physician Intelligence Senior Sergeant Dermatology 10/22/24 Jelena David, SONJA [facility]5 [facility] [place] [address] Assigned Surgical Provider 10/31/24 Fabiano Correa, BRYCE [address] [place] [address] Assigned Heart and Vascular Provider 11/30/24 documented as of this encounter
--- OUTSIDE RECORDS SUMMARY | 2024-12-17 21:42 | XMS_ITS | Encounter Summary ---
Author Organization [place] Address [address] [place] [address] Care Team Providers Care Manager Market Name Role Phone Lita Oseguera Unavailable Unavailable Marija Edgar APRN PAY CLERK Primary Care Provider + Marija Edgar APRN PAY CLERK Unavailable [phone] Keisha Dotson MD Unavailable Diana Desir [facility] Unavailable [phone] Rain Galaviz PA-C Unavailable [phone] Tavia Wyatt MD Unavailable Erica Farrell APRN PAY CLERK Unavailable Rich Barrett MD Unavailable [phone] Neil Kent MD Unavailable Roney Story DPM Unavailable Diana Desir [facility] Unavailable Jelena David OD Unavailable Livan Sharif MD Unavailable Livan Sharif MD Unavailable Catherine Cm MD Unavailable + Valery Veronica PA-C Unavailable Catherine Cm MD Unavailable + Johnny Murillo MD Unavailable [phone] Brea Quinn [employer]ELT FURNACE EXPEDITER PAY CLERK Unavailable [phone] Brea Quinn REMELT FURNACE EXPEDITER PAY CLERK Unavailable [phone] Jose Francisco Johnson MD Unavailable Livan Sharif MD Unavailable Catherine Cm MD Unavailable + Sydnie Martinez RN Unavailable Unavailable Alfonso Renteria MD Unavailable [phone] Esha Grimm PA-C Primary Care Provider Cheng Todd PA-C Unavailable [phone] Radha Lomeli [employer]EL[employer]URNACE EXPEDITER PAY CLERK Unavailable Jelena David OD Unavailable Pao Joseph RN Unavailable Unavailable Esha Girmm PA-C Unavailable [phone] Valery Veronica PA-C Unavailable Rey Tay MD Unavailable Rocky Zepeda DO Unavailable Philip Dumont MD Unavailable Meredith Carrera PA-C Unavailable [phone] Neil Kent MD Unavailable Juan Pablo Emmanuel MD Unavailable Audrey Waite PA-C Unavailable Valery Veronica PA-C Unavailable Herminia Hatch MD Unavailable Jelena David OD Unavailable [phone] Juan Pablo Emmanuel MD Unavailable [phone] Maru Man PA-C Unavailable + Maru Man PA-C Unavailable [phone] Jelena David OD Unavailable [phone] Madeline Fabiano Gabo COOK APPRENTICE Unavailable [phone] Encounter Details Date Type Department Care Team (Late st Contact Info) Description 07/20/2022 MyC Medical Advice [facility] Heart [facility] [address] [facility] [address] [place] [address] Livan Sharif MD [address] [facility] [address] [place], [place] [phone] Social History Tobacco Use Types Packs/Day Years [...] often do you attend latter day or jainism serv ices? Never 09/22/2021 Do [...] points; Administer PHQ-9 if positive 1 05/13/2022 [facility] of Occupat ional [...] in a prison (including now)? No 09/22/2021 [place] Depression Scale Answer Date Recorded [place] Depression Score 5 01/14/2021 Last EPDS Self Harm Result Not on file 01/14 Education Answer Date Recorded What is the highest level of school you have completed or the highest degree you have received? 12th grade 08/07/2020 Comments No Sex and Gender Information Value Date Recorded Sex Assigned at Female 03/02/2021 5:45 PM CDT Legal Sex Female 4:13 AM CALL CENTER DIRECTOR Gender Identity Female 03/02/2021 5:45 PM CDT Sexual Orientation Straight 02/28/2020 12 :51 AM CDT COVID-19 Exposure Response Date Recorded In the last 10 days, have yo u been in contact with someone who was confirmed or suspected to have Coronavirus/COVID-19? No / Unsure 07/23/2022 6:45 AM CALL CENTER DIRECTOR documented as of this encounter Plan of Treatment Upcoming Encounters Date Type Department Care Team (Late st Contact Info) Description 12/19/2024 2:00 PM CDT Office Visit [facility] [address] [place] [phone] Lauren Claudio PA-C [address] [place] [address] 12/26/2024 7:30 AM CDT Office Visit [facility] [address] [phone] Neil Kent MD [address] [place] [address] [phone] 04/16/2025 11:00 AM CDT Virtual Visit [facility] [address] [place] [address] Meredith Carrera PA-C [address] [place] [address] documented as of this encounter Visit Diagnoses [...] as of this encounter Care Teams Manager Market Relationship Specialty Start Date End Date Marija Edgar APRN CNP PCP - General Nurse Practitioner 04/30/20 04/14/23 Esha Grimm PA-C [address] [place] [phone] PCP - General Family Medicine 05/04/23 Lita Oseguera Personal Advocate & Liaison (PAL) 02/28/20 03/27/23 Marija Edgar APRN PAY CLERK Assigned PCP 06/08/20 04/29/23 Keisha Dotson MD 9 [place] [address] Assigned Neuroscience Provider 06/04/20 04/01/23 [facility]3 [place] [address] Pharmacist Pharmacist 04/17/21 Rain Galaviz PA-C [address] [place] [address] [address] [facility] [place] [address] Physician Patient Service Representative Dermatology 04/28/21 Tavia Wyatt MD [address] [place] [address] [address] [facility] [place] [address] Dermatology 07/14/21 Erica Farrell APRN PAY CLERK [address] [place] [address] Nurse Practitioner Cardiovascular Disease 09/09/21 Rich Barrett MD [address] [place] 205905 Physician Ophthalmology 01/21/22 Neil Kent MD 500 [place] [address] Dermatology 02/24/22 Roney Story DPM [address] [facility] [address] [place] [address] Assigned Musculoskeletal Provider 03/20/22 08/13/22 [facility] [address] [place] [address] Assigned MTM Pharmacist 04/07/22 Jelena David OD [address] [facility] [place] [address] Assigned Surgical Provider 05/08/22 10/08/22 Livan Sharif MD [address] [place] [address] Cardiovascular Disease 05/14/22 Livna Sharif MD [address] [place] [address] Assigned Heart and Vascular Provider 06/12/22 07/23/22 Catherine Cm MD [address] [place] 874965 Cardiovascular Disease 07/21/22 Valery Veronica PAUcheC 909 [place] [address] Physician Patient Service Representative Dermatology 07/21/22 Catherine Cm MD [address] [place] [address] Assigned Heart and Vascular Provider 07/24/22 11/05/22 Johnny Murillo MD [address] [place] [address] Assigned Musculoskeletal Provider 08/14/22 10/08/22 Brea Quinn APRN PAY CLERK 500 [place] [address] Nurse Practitioner Dermatology 09/21/22 Brea Quinn APRN PAY CLERK [address] [facility] [place] [address] Assigned Surgical Provider 10/09/22 05/01/24 [place] [address] [facility] [address] [place] [address] Assigned Musculoskeletal Provider 10/09/22 05/01/24 Livan Sharif MD [address] [facility] [address] [place] [address] Assigned Heart and Vascular Provider 11/06/22 11/12/22 Catherine Cm MD [address] [facility] [address] [place] [phone] Assigned Heart and Vascular Provider 11/13/22 05/27/23 Sydnie Martinez RN Personal Advocate & Liaison (PAL) Family Medicine 03/28/23 07/31/23 Alfonso Renteria MD [address] [facility] [address] [place] [address] Assigned Neuroscience Provider 04/02/23 09/29/24 Cheng Todd PA-C [address] [place] [address] Assigned PCP 04/30/23 07/15/23 Radha Lomeli APRN PAY CLERK [address] [facility] [address] [place] [address] Assigned Heart and Vascular Provider 05/28/23 11/29/24 Jelena David OD [address] [facility] [place] [address] Ophthalmology 06/15/23 Pao Joseph, VJ Personal Advocate & Liaison (PAL) Nurse 08/01/23 11/07/23 Esha Grimm PA-C [address] [place] [phone] Assigned PCP 07/16/23 Valery Veronica PA-C [address] [place] [address] Physician Patient Service Representative Dermatology 09/19/23 Rey Tay MD [address] [place] [address] 727505 Gastroenterology 09/20/23 Rocky Zepeda DO [address] [place] [address] Physician Gastroenterology 09/20/23 Philip Dumont MD [address] [place] [address] Physician Ophthalmology 09/22/23 Meredith Carrera PA-C [address] [place] [address] Assigned Gastroenterology Provider 11/01/23 Neil Kent MD [address] [address] Dermatology 11/02/23 [place] [address] [place], [place] [address] Neurological Surgery 12/26/23 Audrey Waite PA-C [address] [place] [address] Physician Patient Service Representative Dermatology 02/28/24 Valery Veronica PA-C [address] [place] [address] Physician Patient Service Representative Dermatology 04/10/24 Herminia Hatch MD [address] [place] [address] [id number] Assigned Rheumatology Provider 07/02/24 [place] [address] [place] [address] [place] [address] Ophthalmology 08/30/24 [place] [address] [place] [address] Assigned Neuroscience Provider 09/30/24 Maru Man PA-C [address] [place] [address] Physician Patient Service Representative Dermatology 10/03/24 Maru Man PA-C [address] [place] [address] Physician Patient Service Representative Dermatology 10/22/24 Jelena David OD [address] [facility] [place] [address] Assigned Surgical Provider 10/31/24 Fabiano Correa NP [address] [place] [address] Assigned Heart and Vascular Provider 11/30/24 documented as of this encounter
--- OUTSIDE RECORDS SUMMARY | 2024-12-17 21:42 | XMS_ITS | Encounter Summary ---
Author Organization [place] Address [address] [place] [address] Care Team Providers Care Executive Coach Name Role Phone Lita Oseguera Unavailable Unavailable Marija Edgar APRN BABBITTER Primary Care Provider + Marija Edgar APRN BABBITTER Unavailable [phone] Keisha Dotson MD Unavailable Diana Desir [facility] Unavailable [phone] Rain Galaviz PA-C Unavailable Tavia Wyatt MD Unavailable Erica Farrell APRN BABBITTER Unavailable Rich Barrett MD Unavailable [phone] Neil Kent MD Unavailable Diana Desir [facility] Unavailable Livan Sharif MD Unavailable Catherine Cm MD Unavailable + Valery Veronica PA-C Unavailable [phone] Catherine Cm MD Unavailable + Brea Quinn INSTRUMENTAL TEACHER BABBITTER Unavailable Brea Quinn INSTRUMENTAL TEACHER BABBITTER Unavailable [phone] Jose Francisco Johnson MD Unavailable Livan Sharif MD Unavailable ChivoraynaCatherine boothe MD Unavailable + Sydnie Martinez RN Unavailable Unavailable Alfonso Renteria MD Unavailable Esha Grimm PA-C Primary Care Provider Cheng Todd PA-C Unavailable [phone] Radha Lomeli INSTRUMENTAL TEACHER BABBITTER Unavailable [phone] Jelena David OD Unavailable [phone] Pao Joseph RN Unavailable Unavailable Esha Grimm PA-C Unavailable Valery Veronica PA-C Unavailable Rey Tay MD Unavailable Rocky Zepeda DO Unavailable Philip Dumont MD Unavailable [phone] Meredith Carrera PA-C Unavailable [phone] Neil Kent MD Unavailable Juan Pablo Emmanuel MD Unavailable Audrey Waite PA-C Unavailable [phone] Valery Veronica PA-C Unavailable Herminia Hatch MD Unavailable Jelena David OD Unavailable Juan Pablo Emmanuel MD Unavailable Maru Man PA-C Unavailable [phone] Maru Man PA-C Unavailable [phone] Jelena David OD Unavailable Fabiano Correa PROJECT ADMIN Unavailable [phone] Encounter Details Date Type Department Care Team (Late st Contact Info) Description 10/22/2022 MyC Medical Advice [facility] [address] [place] [phone] Lauren Claudio PABaldo [address] [place] [address] Social History Tobacco Use Types Packs/Day [...] often do you attend adventist or zoroastrianism serv ices? Never 09/22/2021 Do [...] Answer Date Recorded PHQ-2 Score 1 10/11/2022 [facility] [place] of Occupat ional Health - Occupational [...] in a custodial (including now)? No 09/22/2021 [place] Depression Scale Answer Date Recorded [place] Depression Score 5 01/14/2021 Last EPDS Self Harm Result Not on file 01/14 Education Answer Date Recorded What is the highest level of school you have completed or the highest degree you have received? 12th grade 08/07/2020 Comments No Sex and Gender Information Value Date Recorded Sex Assigned at Female 03/02/2021 5:45 PM CDT Legal Sex Female 4:13 AM ACQUISITION PROFESSIONAL Gender Identity Female 03/02/2021 5:45 PM [...] Description 12/19/2024 2:00 PM CDT Office Visit [facility] [address] [place] [phone] Lauren Claudio PA-C [address] [place] [address] 12/26/2024 7:30 AM CDT Office Visit [facility] [address] [phone] Neil Kent MD [address] [place] [address] 536055 04/16/2025 11:00 AM CDT Virtual Visit [facility] [address] 4th [place] [phone] Meredith Carrera PA-C [address] [place] [address] 331765 documented as of this encounter Visit Diagnoses [...] as of this encounter Care Teams Executive Coach Relationship Specialty Start Date End Date Marija Edgar APRN BABBITTER PCP - General Nurse Practitioner 04/30/20 04/14/23 Esha Grimm PA-C [address] [place] [phone] PCP - General Family Medicine 05/04/23 Lita Oseguera Personal Advocate & Liaison (PAL) 02/28/20 03/27/23 Marija Edgar APRN BABBITTER Assigned PCP 06/08/20 04/29/23 Keisha Dotson MD 909 [place] [address] Assigned Neuroscience Provider 06/04/20 04/01/23 Diana Desir, [facility] [address] [place] [address] Pharmacist Pharmacist 04/17/21 Rain Galaviz PA-C [address] [place] [address] [address] [place] [address] Physician Trouble Shooter Dermatology 04/28/21 Tavia Wyatt MD [address] [place] [address] [address] [facility] [place] [place] [address] Dermatology 07/14/21 Erica Farrell APRN BABBITTER [address] [place] [address] Nurse Practitioner Cardiovascular Disease 09/09/21 Rich Barrett MD [address] [place] [address] Physician Ophthalmology 01/21/22 Neil Kent MD 500 [place] [address] Dermatology 02/24/22 Diana Desir, [facility] [address] [place] [address] Assigned MTM Pharmacist 04/07/22 Livan Sharif MD [address] [place] [address] Cardiovascular Disease 05/14/22 Catherine Cm MD [address] [place] [address] Cardiovascular Disease 07/21/22 Valery Veronica PAUcheC [address] [place] [address] 002545 Physician Trouble Shooter Dermatology 07/21/22 Catherine Cm MD [address] [place] [address] Assigned Heart and Vascular Provider 07/24/22 11/05/22 Brea Quinn APRN BABBITTER [address] [place] [address] 495175 Nurse Practitioner Dermatology 09/21/22 Brea Quinn APRN BABBITTER [address] [place] [address] [place] [address] Assigned Surgical Provider 10/09/22 05/01/24 [place] [address] [facility] [place] [address] Assigned Musculoskeletal Provider 10/09/22 05/01/24 Livan Sharif MD [address] [place] [address] Assigned Heart and Vascular Provider 11/06/22 11/12/22 Catherine Cm MD [address] [place] [address] Assigned Heart and Vascular Provider 11/13/22 05/27/23 Sydnie Martinez RN Personal Advocate & Liaison (PAL) Family Medicine 03/28/23 07/31/23 Alfonso Renteria MD [address] [facility] [address] [place] [address] Assigned Neuroscience Provider 04/02/23 09/29/24 Cheng Todd PA-C [address] [place] [address] [phone] Assigned PCP 04/30/23 07/15/23 Radha Lomeli APRN BABBITTER [address] [place], [place] 0[address] Assigned Heart and Vascular Provider 05/28/23 11/29/24 Jelena David OD [address] [facility] [address] Ophthalmology 06/15/23 Pao Joseph, VJ Personal Advocate & Liaison (PAL) Nurse 08/01/23 11/07/23 Esha Grimm PA-C [address] [place] [phone] Assigned PCP 07/16/23 Valery Veronica PA-C 909 [place], [place] 352835 Physician Trouble Shooter Dermatology 09/19/23 Rey Tay MD [address] [place] [address] 804335 MD Gastroenterology 09/20/23 Rocky Zepeda DO [address] [place] [address] Physician Gastroenterology 09/20/23 Philip Dumont MD 6 [place], [place] 970375 Physician Ophthalmology 09/22/23 Meredith Carrera PA-C [address] [place] [address] 234795 Assigned Gastroenterology Provider 11/01/23 Neil Kent MD [address] 423960 MD Dermatology 11/02/23 [place] [address] [address] [facility] [place] [address] Neurological Surgery 12/26/23 Audrey Waite PA-C [address] [place] [address] Physician Trouble Shooter Dermatology 02/28/24 Valeyr Veronica PA-C 859559 [address] [address] Physician Trouble Shooter Dermatology 04/10/24 Herminia Hatch MD [facility]5 [place], [place] [id number] Assigned Rheumatology Provider 07/02/24 Jelena David OD [address] [facility] [place] [address] Ophthalmology 08/30/24 [place] [address] [place] [address] Assigned Neuroscience Provider 09/30/24 Maru Man PA-C [address] [place] [address] Physician Trouble Shooter Dermatology 10/03/24 Maru Man PA-C [address] [place] [address] Physician Trouble Shooter Dermatology 10/22/24 Jelena David OD [facility]5 [facility] [place] [address] Assigned Surgical Provider 10/31/24 Fabiano [place], BRYCE [address] [place] [address] Assigned Heart and Vascular Provider 11/30/24 documented as of this encounter
--- OUTSIDE RECORDS SUMMARY | 2024-12-17 21:42 | XMS_ITS | Encounter Summary ---
Author Organization [facility] Address [address] [place] [address] Care Team Providers Care Chief Media Officer Name Role Phone Lita Oseguera Unavailable Unavailable Marija Edgar APRN EQUIPMENT INSPECTOR Primary Care Provider + Chanelle Mccann APRN CNM Unavailab le Kyara De La Fuente RN Unavailable [phone] Marija Edgar APRN EQUIPMENT INSPECTOR Unavailable Mynor Broussard MD Unavailable [phone] Keisha Dotson MD Unavailable Galo Burrell MD Unavailable Unavailable Cristina Wood Unavailable Diana Desir [facility] Unavailable Rain Galaviz PA-C Unavailable Summer Lara MD Unavailable [phone] Summer Lara MD Unavailable [phone] Summer Lara MD Unavailable [phone] Tavia Wyatt MD Unavailable Johnny Murillo MD Unavailable [phone] Erica Farrell APRN EQUIPMENT INSPECTOR Unavailable VikasTeresita [facility] Unavailable Tavia Wyatt MD Unavailable Diana Desir [facility] Unavailable Rich Barrett MD Unavailable [phone] Neil Kent MD Unavailable Roney Story DP Unavailable Erica Farrell APRN EQUIPMENT INSPECTOR Unavailable Diana Desir [facility] Unavailable Jelena David Unavailable Galo Burrell MD Unavailable Unavailable Livan Sharif MD Unavailable Livan Sharif MD Unavailable Catherine Cm MD Unavailable + Valery Veronica-C Unavailable [phone] Catherine Cm MD Unavailable + Johnny Murillo MD Unavailable [phone] Brea uQinn ENGINEERING PSYCHOLOGIST EQUIPMENT INSPECTOR Unavailable [phone] Brea Quinn ENGINEERING PSYCHOLOGIST EQUIPMENT INSPECTOR Unavailable [phone] Jose Francisco Johnson MD Unavailable Livan Sharif MD Unavailable Catherine Cm MD Unavailable + Sydnie Martinez RN Unavailable Unavailable Alfonso Renteria MD Unavailable Esha Grimm PA-C Primary Care Provider Cheng Todd PA-C Unavailable Radha Lomeli ENGINEERING PSYCHOLOGIST EQUIPMENT INSPECTOR Unavailable Jelena David OD Unavailable [phone] Pao Joseph RN Unavailable Unavailable AlfaJesusEsha M PA-C Unavailable [phone] Valery Veronica PA-C Unavailable Rey Tay MD Unavailable Rocky Zepeda DO Unavailable Philpi Dumont MD Unavailable Meredith Carrera PA-C Unavailable Neil Kent MD Unavailable Juan Pablo Emmanuel MD Unavailable Audrey Waite PA-C Unavailable [phone] Valery Veronica PA-C Unavailable [phone] Herminia Hatch MD Unavailable Jelena David OD Unavailable Juan Pablo Emmanuel MD Unavailable Maru Man PA-C Unavailable Maru Man PA-C Unavailable Jelena David OD Unavailable Fabiano Correa NP Unavailable [phone] Encounter Details Date Type Department Care Team (Late st Contact Info) Description 02/06/2021 [facility] [address] [address] Bob Diop Social History Tobacco [...] do you attend [facility] or mandaeism services? More than 4 times [...] Score 3 09/29/2020 [facility] [...] in a correction (including now)? No 08/11/2020 [place] Depression Scale Answer Date Recorded [...] PM CDT Legal Sex Female 4:13 AM REBEAMER Gender Identity Female 03/02/2021 5:45 PM CDT [...] PM CDT Office Visit [facility] [address] [place] [phone] Lauren Claudio PA-C [id number] [place] [address] 12/26/2024 7:30 AM CDT Office Visit [facility] [address] [phone] Neil Kent MD [address] [place] [address] 04/16/2025 11:00 AM CDT Virtual Visit [facility] [address] [place] [phone] Meredith Carrera PA-C [address] [place] [address] 462205 documented as of this encounter Visit Diagnoses Not on filedocumented in this encounter Additional Health Concerns Infection Onset Date Last Indicated Resolved Time Rule Out COVID-19 05/11/2021 05/11/2021 05/13/2021 10:18 AM CDT Rule Out COVID-19 07/13/2021 07/13/2021 07/14/2021 3:04 PM REBEAMER Rule Out COVID-19 07/18/2021 07/18/2021 07/20/2021 1:56 PM REBEAMER COVID-19 07/18/2021 07/18/2021 08/08/2021 11:3 9 PM REBEAMER Rule Out COVID-19 12/18/2021 12/18/2021 12/19/2021 11:34 AM CDT Rule Out COVID-19 02/24/2022 02/24/2022 02/25/2022 1:08 PM CDT Rule Out COVID-19 04/26/2022 04/26/2022 04/26/2022 6:47 AM CDT Rule Out COVID-19 05/17/2022 05/17/2022 05/17/2022 10:20 PM REBEAMER Rule Out COVID-19 06/09/2022 06/09/2022 06/09/2022 9:35 AM REBEAMER COVID-19 06/09/2022 06/09/2022 06/30/2022 11:4 1 PM REBEAMER Rule Out COVID-19 11/10/2022 11/10/2022 11/11/2022 12:17 [...] as of this encounter Care Teams Chief Media Officer Relationship Specialty Start Date End Date Marija Edgar APRN CNP PCP - General Nurse Practitioner 04/30/20 04/14/23 Esha Grimm PA-C [address] [place] [phone] PCP - General Family Medicine 05/04/23 Lita Oseguera Personal Advocate & Liaison (PAL) 02/28/20 03/27/23 Chanelle Mccann APRN CNAdam [address] [place], [facility] [address] [place] [address] Assigned OBGYN Provider 05/02/2005/09 Kyara De La Fuente, RN Specialty Lead Teacher Neurology 06/04/20 03/05/21 Marija Edgar APRN EQUIPMENT INSPECTOR Assigned PCP 06/08/20 04/29/23 Mynor Broussard MD [address] [facility] 500 [place], [place] 929165 Assigned Surgical Provider 06/01/20 11/28/21 Keisha Dotson MD 9 [place] [address] Assigned Neuroscience Provider 06/04/20 04/01/23 Galo Burrell MD Assigned Heart and Vascular Provider 10/05/20 04/02/22 Cristina Wood Financial Resource Worker 02/09/21 02/09/21 Diana Desir, [facility] [address] [place], [place] [phone] Pharmacist Pharmacist 04/17/21 Rain Galaviz PA-C [address] [place] [address] [address] [facility] [place] [address] Physician Cuprous Chloride Helper Dermatology 04/28/21 Summer Lara MD [address] [place] [address] Assigned OBGYN Provider 05/10/2105/23 Summer Lara MD [address] [place] [address] Assigned OBGYN Provider 05/31/21 Summer Lara MD [address] [place] [address] Assigned OBGYN Provider 05/24/2105/30 Tavia Wyatt MD [address] [place] [address] 853564 Dermatology 07/14/21 Johnny Murillo MD [facility] [place] [address] Assigned Musculoskeletal Provider 08/30/21 03/17/22 Erica Farrell APRN EQUIPMENT INSPECTOR [address] [place] [address] [address] [place] [address] Nurse Practitioner Cardiovascular Disease 09/09/21 Teresita Bean [facility] [address] [place] [address] Pharmacist Pharmacist 09/24/21 09/29/21 Tavia Wyatt MD [address] [place] [address] Assigned Surgical Provider 11/29/21 05/07/22 Diana Desir, [facility] [address] [place] [address] Assigned MTM Pharmacist 01/02/22 Rich Barrett MD [address] [place] [address] Physician Ophthalmology 01/21/22 Neil Kent MD 500 [place] [address] Dermatology 02/24/22 Roney Story DPM [address] [facility] [address] [place] [address] Assigned Musculoskeletal Provider 03/20/22 08/13/22 Erica Farrell APRN EQUIPMENT INSPECTOR [address] [place] [address] Assigned Heart and Vascular Provider 04/03/22 04/16/22 Diana Desir, [facility] [address] [place] [address] Assigned MTM Pharmacist 04/07/22 [place] David [place] [address] [facility] [place] [address] Assigned Surgical Provider 05/08/22 10/08/22 Galo Burrell MD Assigned Heart and Vascular Provider 04/17/22 06/11/22 Livan Sharif MD [address] [place] [address] Cardiovascular Disease 05/14/22 Livan Sharif MD [address] [place] [address] Assigned Heart and Vascular Provider 06/12/22 07/23/22 Catherine Cm MD [address] [place] [address] Cardiovascular Disease 07/21/22 Valery Veronica, PAUcheC [address] [place] [address] 251725 Physician Cuprous Chloride Helper Dermatology 07/21/22 Catherine Cm MD [address] [place] [address] Assigned Heart and Vascular Provider 07/24/22 11/05/22 Johnny Murillo MD [address] [place] [address] 842174 Assigned Musculoskeletal Provider 08/14/22 10/08/22 Brea Quinn APRN EQUIPMENT INSPECTOR [address] [place] [address] [phone] Nurse Practitioner Dermatology 09/21/22 Brea Quinn APRN EQUIPMENT INSPECTOR [address] [place] [address] [place] 099152 Assigned Surgical Provider 10/09/22 05/01/24 [place] [address] [address] [facility] [place] [address] Assigned Musculoskeletal Provider 10/09/22 05/01/24 Livan Sharif MD [address] [place] 705165 Assigned Heart and Vascular Provider 11/06/22 11/12/22 Catherine Cm MD [address] [place] [address] Assigned Heart and Vascular Provider 11/13/22 05/27/23 Sydnie Martinez RN Personal Advocate & Liaison (PAL) Family Medicine 03/28/23 07/31/23 Alfonso Renteria MD [address] [facility] 200 [place] [address] Assigned Neuroscience Provider 04/02/23 09/29/24 Cheng Todd PA-C [address] [place] [address] [id number] Assigned PCP 04/30/23 07/15/23 Radha Lomeli APRN EQUIPMENT INSPECTOR [address] [place] [address] Assigned Heart and Vascular Provider 05/28/23 11/29/24 Jelena David OD [address] [facility] [place] [address] MD Ophthalmology 06/15/23 Pao Joseph, RN Personal Advocate & Liaison (PAL) Nurse 08/01/23 11/07/23 Esha Grimm PA-C [address] [place] [address] Assigned PCP 07/16/23 Valery Veronica PA-C [address] [place] [address] 817625 Physician Cuprous Chloride Helper Dermatology 09/19/23 Rey Tay MD [address] [place] [address] 073615 MD Gastroenterology 09/20/23 Rocky Zepeda DO [address] [place] [address] 840505 Physician Gastroenterology 09/20/23 Philip Dumont MD [address] [place] [address] 249895 Physician Ophthalmology 09/22/23 Meredith Carrera PA-C [address] [place] [address] 688385 Assigned Gastroenterology Provider 11/01/23 Neil Kent MD [address] [place] [address] [phone] Dermatology 11/02/23 [place] [address] [place] [address] Neurological Surgery 12/26/23 Audrey Waite PA-C 500 [place] [address] Physician Cuprous Chloride Helper Dermatology 02/28/24 Valery Veronica PA-C [id number] [place] [address] Physician Cuprous Chloride Helper Dermatology 04/10/24 Herminia Hatch MD [address] [place] [address] [phone] Assigned Rheumatology Provider 07/02/24 Jelena David OD [address] [place] [address] [place] [address] Ophthalmology 08/30/24 [place] [address] [place] [address] Assigned Neuroscience Provider 09/30/24 Maru Man PA-C [address] [place] [address] Physician Cuprous Chloride Helper Dermatology 10/03/24 Maru Man PA-C [address] [place] [address] Physician Cuprous Chloride Helper Dermatology 10/22/24 Jelena David OD [address] [place] [address] [place] [address] Assigned Surgical Provider 10/31/24 Fabiano Correa, MAINTENANCE 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 [address] [place] [address] Assigned Heart and Vascular Provider 11/30/24 documented as of this encounter
--- OUTSIDE RECORDS SUMMARY | 2024-12-17 21:42 | XMS_ITS | Encounter Summary ---
Author Organization [facility] Address [address] [place] [address] Care Team Providers Care Perinatal Nurse Name Role Phone Lita Oseguera Unavailable Unavailable Marija Edgar APRN POLICE INVESTIGATOR Primary Care Provider + Marija Edgar APRN POLICE INVESTIGATOR Unavailable [phone] Keisha Dotson MD Unavailable Diana Desir [facility] Unavailable Rain Galaviz PA-C Unavailable Tavia Wyatt MD Unavailable Erica Farrell APRN POLICE INVESTIGATOR Unavailable Rich Barrett MD Unavailable [phone] Neil Kent MD Unavailable Roney Story DPM Unavailable Diana Desir [facility] Unavailable Jelena David OD Unavailable Livan Sharif MD Unavailable Livan Sharif MD Unavailable Catherine Cm MD Unavailable + Valery Veronica PA-C Unavailable Catherine Cm MD Unavailable + Johnny Murillo MD Unavailable [phone] Brea Quinn OPERATIONS CHIEF POLICE INVESTIGATOR Unavailable [phone] Brea Quinn OPERATIONS CHIEF POLICE INVESTIGATOR Unavailable [phone] Jose Francisco Johnson MD Unavailable Livan Sharif MD Unavailable Catherine Cm MD Unavailable + Sydnie Martinez RN Unavailable Unavailable Alfonso Renteria MD Unavailable [phone] Esha Grimm PA-C Primary Care Provider Cheng Todd PA-C Unavailable [phone] Radha Lomeli OPERATIONS CHIEF POLICE INVESTIGATOR Unavailable Jelena David OD Unavailable Pao Joseph RN Unavailable Unavailable Esha Grimm PA-C Unavailable [phone] Valery Veronica PA-C Unavailable Rey Tay MD Unavailable Rocky Zepeda DO Unavailable Philip Dumont MD Unavailable Meredith Carrera PA-C Unavailable Neil Kent MD Unavailable Juan Pablo Emmanuel MD Unavailable Audrey Waite PA-C Unavailable Valery Veronica PA-C Unavailable Herminia Hatch MD Unavailable Jelena David OD Unavailable [phone] Juan Pablo Emmanuel MD Unavailable [phone] Maru Man PA-C Unavailable +[phone] Maru Man PA-C Unavailable +[phone] Jelena David OD Unavailable [phone] Fabiano Correa NP Unavailable [phone] Encounter Details Date Type Department Care Team (Late st Contact Info) Description 07/02/2022 [facility] Medical Advice [address] [address] Diana Desir, [facility] [address] [place] [address] Social History Tobacco Use Types Packs/Day Years [...] How often do you attend worship or spiritism serv ices? Never 09/22/2021 Do [...] a group home (including now)? No 09/22/2021 [place] Depression Scale Answer Date Recorded [place] Depression Score 5 01/14/2021 Last EPDS Self Harm Result Not on file 01/14 Education Answer Date Recorded What is the highest level of school you have completed or the highest degree you have received? 12th grade 08/07/2020 Comments No Sex and Gender Information Value Date Recorded Sex Assigned at Female 03/02/2021 5:45 PM CDT Legal Sex Female 4:13 AM SUPERVISOR PHOTOENGRAVING Gender Identity Female 03/02/2021 5:45 PM CDT Sexual Orientation Straight 02/28/2020 12 :51 AM CDT COVID-19 Exposure Response Date Recorded In the last 10 days, have yo u been in contact with someone who was confirmed or suspected to have Coronavirus/COVID-19? No / Unsure 06/25/2022 8:44 AM SUPERVISOR PHOTOENGRAVING documented as of this encounter Plan of Treatment Upcoming Encounters Date Type Department Care Team (Late st Contact Info) Description 12/19/2024 2:00 PM CDT Office Visit [facility] [address] [place] [phone] Lauren Claudio PA-C [address] [place], [place] [phone] 12/26/2024 7:30 AM CDT Office Visit [facility] [address] [phone] Neil Kent MD [address] [place] [address] 541915 04/16/2025 11:00 AM CDT Virtual Visit [facility] G[facility] Clinic [address] 4th [place] [address] Meredith Carrera PA-C [address] [place] [address] documented as of this encounter Visit Diagnoses [...] documented as of this encounter Care Teams Perinatal Nurse Relationship Specialty Start Date End Date Marija Edgar APRN CNP PCP - General Nurse Practitioner 04/30/20 04/14/23 Esha Grimm PA-C [address] [place] [phone] PCP - General Family Medicine 05/04/23 Lita Oseguera Personal Advocate & Liaison (PAL) 02/28/20 03/27/23 Marija Edgar APRN POLICE INVESTIGATOR Assigned PCP 06/08/20 04/29/23 Keisha Dotson MD [address] [place] [address] Assigned Neuroscience Provider 06/04/20 04/01/23 [facility] [address] [place] [address] Pharmacist Pharmacist 04/17/21 Rain Galaviz PA-C [address] [place] [address] [address] [facility] [place] [address] Physician 2 Year Olds Preschool Teacher Dermatology 04/28/21 Tavia Wyatt MD [address] [place] [address] [address] [facility] [place] [address] Dermatology 07/14/21 Erica Farrell APRN POLICE INVESTIGATOR [address] [place] [address] Nurse Practitioner Cardiovascular Disease 09/09/21 Rich Barrett MD [address] [place] [address] Physician Ophthalmology 01/21/22 Neil Kent MD [address] [place] [address] Dermatology 02/24/22 Roney Story DPM [address] [facility] [address] [place] [address] Assigned Musculoskeletal Provider 03/20/22 08/13/22 [facility] [address] [place] [address] Assigned MTM Pharmacist 04/07/22 Jelena David OD [address] [facility] [place] [address] Assigned Surgical Provider 05/08/22 10/08/22 Livan Sharif MD [address] [place] [address] Cardiovascular Disease 05/14/22 Livan Sharif MD [address] [place] [address] Assigned Heart and Vascular Provider 06/12/22 07/23/22 Catherine Cm MD [address] [place] [address] Cardiovascular Disease 07/21/22 Valery Veronica, PAUcheC [address]09 [place] [address] Physician 2 Year Olds Preschool Teacher Dermatology 07/21/22 Catherine Cm MD [address] [place] [address] Assigned Heart and Vascular Provider 07/24/22 11/05/22 Johnny Murillo MD [address] [address] Assigned Musculoskeletal Provider 08/14/22 10/08/22 Brea Quinn APRN POLICE INVESTIGATOR [address] [place] [address] 725905 Nurse Practitioner Dermatology 09/21/22 Brea Quinn APRN POLICE INVESTIGATOR [address] [place] [address] [place] [address] Assigned Surgical Provider 10/09/22 05/01/24 [place] [address] [facility] 300 [place] [address] Assigned Musculoskeletal Provider 10/09/22 05/01/24 Livan Sharif MD [address] [facility] [address] [place] [address] Assigned Heart and Vascular Provider 11/06/22 11/12/22 Catherine Cm MD [address] [facility] [address] [place] 602125 Assigned Heart and Vascular Provider 11/13/22 05/27/23 Sydnie Martinez RN Personal Advocate & Liaison (PAL) Family Medicine 03/28/23 07/31/23 Alfonso Renteria MD [address] [facility] 200 [place] [address] Assigned Neuroscience Provider 04/02/23 09/29/24 Cheng Todd PA-C [address] [place] [address] Assigned PCP 04/30/23 07/15/23 Radha Lomeli APRN POLICE INVESTIGATOR 6[address] [facility] [address] [place] [address] Assigned Heart and Vascular Provider 05/28/23 11/29/24 Jelena David OD [address] [facility] [place] [address] Ophthalmology 06/15/23 Pao Joseph, VJ Personal Advocate & Liaison (PAL) Nurse 08/01/23 11/07/23 Esha Grimm PA-C [address] [place] [address] Assigned PCP 07/16/23 Valery Veronica PA-C [address] [place] [address] Physician 2 Year Olds Preschool Teacher Dermatology 09/19/23 Rey Tay MD [address] [place] [address] 088775 Gastroenterology 09/20/23 Rocky Zepeda DO [address] [place] [address] Physician Gastroenterology 09/20/23 Philip Dumont MD [address] [place] [address] Physician Ophthalmology 09/22/23 Meredith Carrera PA-C [address] [place] [address] Assigned Gastroenterology Provider 11/01/23 Neil Kent MD [address] [address] Dermatology 11/02/23 [place] [address] [place], [place] 397037 Neurological Surgery 12/26/23 Audrey Waite PA-C [address] [place] [address] Physician 2 Year Olds Preschool Teacher Dermatology 02/28/24 Valery Veronica PA-C 948247 [address] [place] [address] Physician 2 Year Olds Preschool Teacher Dermatology 04/10/24 Herminia Hatch MD [address] [place] [address] [phone] Assigned Rheumatology Provider 07/02/24 Jelena David OD [address] [place] [address] [place] [address] Ophthalmology 08/30/24 [place] [address] [place] [address] Assigned Neuroscience Provider 09/30/24 Maru Man PA-C [address] [place] [address] Physician 2 Year Olds Preschool Teacher Dermatology 10/03/24 Maru Man PA-C [address] [place] [address] Physician 2 Year Olds Preschool Teacher Dermatology 10/22/24 Jelena David OD [address] [facility] [place] [address] Assigned Surgical Provider 10/31/24 Fabiano Correa NP [address] [place] [address] Assigned Heart and Vascular Provider 11/30/24 documented as of this encounter
--- OUTSIDE RECORDS SUMMARY | 2024-12-17 21:43 | XMS_ITS | Encounter Summary ---
Author Organization [facility] Address [address] [place] [address] Care Team Providers Care Bulk Fluids Handler Name Role Phone Lita Oseguera Unavailable Unavailable Marija Edgar APRN GRAIN COMBINER Primary Care Provider + Marija Edgar APRN GRAIN COMBINER Unavailable [phone] Keisha Dotson MD Unavailable [phone] Diana Desir [facility] Unavailable [phone] Rain Galaviz PA-C Unavailable Tavia Wyatt MD Unavailable Erica Farrell APRN GRAIN COMBINER Unavailable Rich Barrett MD Unavailable [phone] Neil Kent MD Unavailable Roney Story DPM Unavailable [phone] Diana Desir [facility] Unavailable Jelena David OD Unavailable Galo Burrell MD Unavailable Unavailable Livan Sharif MD Unavailable Livan Sharif MD Unavailable Catherine Cm MD Unavailable + Valery Veronica PA-C Unavailable Catherine Cm MD Unavailable + Johnny Murillo MD Unavailable [phone] Brea Quinn POLICY SPECIALIST GRAIN COMBINER Unavailable [phone] Brea Quinn POLICY SPECIALIST GRAIN COMBINER Unavailable [phone] Jose Francisco Johnson MD Unavailable Livan Sharif MD Unavailable Catherine Cm MD Unavailable + Sydnie Martinez RN Unavailable Unavailable Alfonso Renteria MD Unavailable Esha Grimm PA-C Primary Care Provider Cheng Todd PA-C Unavailable Radha Lomeli POLICY SPECIALIST GRAIN COMBINER Unavailable Jelena David Radha OD Unavailable Pao Joseph RN Unavailable Unavailable Esha Grimm PA-C Unavailable [phone] JeremíasValery damon PA-C Unavailable [phone] Rey Tay MD Unavailable Rocky Zepeda DO Unavailable Philip Dumont MD Unavailable [phone] Meredith Carrera PA-C Unavailable [phone] Neil Kent MD Unavailable Juan Pablo Emmanuel MD Unavailable Audrey Waite PA-C Unavailable Valery Veronica PA-C Unavailable Herminia Hatch MD Unavailable Tommy Davidmao Templetone OD Unavailable Juan Pablo Emmanuel MD Unavailable [phone] Maru Man PA-C Unavailable [phone] Maru Man PA-C Unavailable [phone] Jelena David OD Unavailable [phone] Fabiano Correa NP Unavailable [phone] Encounter Details Date Type Department Care Team (Late st Contact Info) Description 05/11/2022 [facility] [address] [address] Diana Desir, [facility] [address] [place], [place] [id number] Social History Tobacco Use Types Packs/Day Years [...] a group home (including now)? No 09/22/2021 [place] Depression Scale Answer Date Recorded [place] Depression Score 5 01/14/2021 Last EPDS Self Harm Result Not on file 01/14 Education Answer Date Recorded What is the highest level of school you have completed or the highest degree you have received? 12th grade 08/07/2020 Comments No Sex and Gender Information Value Date Recorded Sex Assigned at Female 03/02/2021 5:45 PM CDT Legal Sex Female 4:13 AM EYEGLASS LENS GRINDER Gender Identity Female 03/02/2021 5:45 PM [...] PM CDT Office Visit [facility] [address] [place] [phone] Lauren Claudio PA-C [address] [place], [place] [phone] 12/26/2024 7:30 AM CDT Office Visit [facility] [address] [address] Neil Kent MD [address] [place] [address] [phone] 04/16/2025 11:00 AM CDT Virtual Visit [facility] [address] [place] [phone] Meredith Carrera PA-C [address] [place] [address] documented as of this encounter Visit Diagnoses Not on filedocumented in this encounter Additional Health Concerns Infection Onset Date Last Indicated Resolved Time Rule Out COVID-19 05/17/2022 05/17/2022 05/17/2022 10:20 PM EYEGLASS LENS GRINDER Rule Out COVID-19 06/09/2022 06/09/2022 06/09/2022 9:35 AM EYEGLASS LENS GRINDER COVID-19 06/09/2022 06/09/2022 06/30/2022 11:4 1 PM EYEGLASS LENS GRINDER Rule Out COVID-19 11/10/2022 11/10/2022 11/11/2022 [...] documented as of this encounter Care Teams Bulk Fluids Handler Relationship Specialty Start Date End Date Marija Edgar APRN GRAIN COMBINER PCP - General Nurse Practitioner 04/30/20 04/14/23 Esha Grimm PA-C [address] [place] [address] PCP - General Family Medicine 05/04/23 Lita Oseguera Personal Advocate & Liaison (PAL) 02/28/20 03/27/23 Marija Edgar APRN GRAIN COMBINER Assigned PCP 06/08/20 04/29/23 Keisha Dotson MD 909 [place] [address] Assigned Neuroscience Provider 06/04/20 04/01/23 Diana Desir, [facility] [address] [place], [place] [address] Pharmacist Pharmacist 04/17/21 Rain Galaviz PA-C [address] [place] [address] [address] [place] [address] Physician Clinical Research Analyst Dermatology 04/28/21 Tavia Wyatt MD [address] [place] [address] [address] [place] [address] Dermatology 07/14/21 Erica Farrell APRN GRAIN COMBINER [address] [facility] [address] [place] [address] Nurse Practitioner Cardiovascular Disease 09/09/21 Rich Barrett MD [address] [place] 68[address] Physician Ophthalmology 01/21/22 Neil Kent MD 500 [place] [address] Dermatology 02/24/22 Roney Story DPM [address] [facility] [address] [place], [place] 971597 Assigned Musculoskeletal Provider 03/20/22 08/13/22 Diana Desir, [facility] [address] [place], [place] 563016 Assigned MTM Pharmacist 04/07/22 Jelena David OD [address] [place] [address] Assigned Surgical Provider 05/08/22 10/08/22 Galo Burrell MD Assigned Heart and Vascular Provider 04/17/22 06/11/22 Livan Sharif MD [address] [place] [address] [place] [address] Cardiovascular Disease 05/14/22 Livan Sharif MD [address] [place] [address] [place] [address] Assigned Heart and Vascular Provider 06/12/22 07/23/22 Catherine Cm MD [address] [place] [address] [place] [address] Cardiovascular Disease 07/21/22 Valery Veronica PA-C [address] [place] [address] Physician Clinical Research Analyst Dermatology 07/21/22 Catherine Cm MD 6405 [facility] [address] [place] [address] Assigned Heart and Vascular Provider 07/24/22 11/05/22 Johnny Murillo MD [address] [place] [address] Assigned Musculoskeletal Provider 08/14/22 10/08/22 Brea Quinn APRN GRAIN COMBINER [address] [place] [address] 298015 Nurse Practitioner Dermatology 09/21/22 Brea Quinn APRN GRAIN COMBINER [address] [place] [address] Assigned Surgical Provider 10/09/22 05/01/24 [place] [address] [place] [address] Assigned Musculoskeletal Provider 10/09/22 05/01/24 Livan Sharif MD 6405 [facility] S [facility] [address] [place] [address] Assigned Heart and Vascular Provider 11/06/22 11/12/22 Catherine Cm MD [address] [place] [address] [place] [address] Assigned Heart and Vascular Provider 11/13/22 05/27/23 Sydnie Martinez RN Personal Advocate & Liaison (PAL) Family Medicine 03/28/23 07/31/23 Alfonso Renteria MD 5775 [facility] 200 [place] [address] Assigned Neuroscience Provider 04/02/23 09/29/24 Cheng Todd PA-C [address] [place] [address] [id number] Assigned PCP 04/30/23 07/15/23 Radha Lomeli APRN GRAIN COMBINER [address] [place] [address] Assigned Heart and Vascular Provider 05/28/23 11/29/24 Jelena David OD [address] [place] [address] Ophthalmology 06/15/23 Pao Joseph, VJ Personal Advocate & Liaison (PAL) Nurse 08/01/23 11/07/23 Esha Grimm PA-C [address] [place] [address]83 Assigned PCP 07/16/23 Valery Veronica PA-C 909 [place], [place] 512275 Physician Clinical Research Analyst Dermatology 09/19/23 Rey Tay MD [address] [place] [address] Gastroenterology 09/20/23 Evans ZepedauaDO [address] [place] [address] Physician Gastroenterology 09/20/23 Philip Dumont MD [address] [place] [address] Physician Ophthalmology 09/22/23 Meredith Carrera PA-C [address] [place] [address] Assigned Gastroenterology Provider 11/01/23 Neil Kent MD [address] [address] Dermatology 11/02/23 [place] [address] [address] [facility] [place] [address] Neurological Surgery 12/26/23 Audrey Waite PA-C 500 [place] [address] Physician Clinical Research Analyst Dermatology 02/28/24 Valery Veronica PA-C 532179 [address] [address] Physician Clinical Research Analyst Dermatology 04/10/24 Herminia Hatch MD [address] [place] [address] Assigned Rheumatology Provider 07/02/24 Jelena David OD [address] [facility] [place] [address] Ophthalmology 08/30/24 [place] [address] [place] [address] Assigned Neuroscience Provider 09/30/24 Maru Man PA-C [address] [place] [address] Physician Clinical Research Analyst Dermatology 10/03/24 Maru Man PA-C [address] [place] [address] Physician Clinical Research Analyst Dermatology 10/22/24 Jelena David OD [address] [facility] [place] [address] Assigned Surgical Provider 10/31/24 Fabiano Correa NP [address] [place] [address] Assigned Heart and Vascular Provider 11/30/24 documented as of this encounter
--- OUTSIDE RECORDS SUMMARY | 2024-12-17 21:43 | XMS_ITS | Encounter Summary ---
Author Organization [place] Address [address] [place] [address] Care Team Providers Care Professional Bondsman Name Role Phone Lita Oseguera Unavailable Unavailable Marija Edgar APRN HANDKERCHIEF CUTTER Primary Care Provider + Marija Edgar APRN HANDKERCHIEF CUTTER Unavailable [phone] Keisha Dotson MD Unavailable [phone] Diana Desir [facility] Unavailable Rain Galaviz PA-C Unavailable Tavia Wyatt MD Unavailable Erica Farrell APRN HANDKERCHIEF CUTTER Unavailable Rich Barrett MD Unavailable [phone] Neil Kent MD Unavailable Roney Story DPM Unavailable Diana Desir [facility] Unavailable [phone] Jelena David OD Unavailable [phone] Livan Sharif MD Unavailable Livan Sharif MD Unavailable Catherine Cm MD Unavailable + Valery Veronica PA-C Unavailable Catherine Cm MD Unavailable + Johnny Murillo MD Unavailable [phone] Brea Quinn AUTOMATIC DEVELOPER HANDKERCHIEF CUTTER Unavailable [phone] Brea Quinn AUTOMATIC DEVELOPER HANDKERCHIEF CUTTER Unavailable [phone] Jose Francisco Johnson MD Unavailable Livan Sharif MD Unavailable Catherine Cm MD Unavailable + Sydnie Martinez RN Unavailable Unavailable Alfonso Renteria MD Unavailable [phone] Esha Grimm PA-C Primary Care Provider Cheng Todd PA-C Unavailable [phone] Radha Lomeli AUTOMATIC DEVELOPER HANDKERCHIEF CUTTER Unavailable Jelena David OD Unavailable Pao Joseph RN Unavailable Unavailable Esha Grimm PA-C Unavailable [phone] Valery Veronica PA-C Unavailable Rey Tay MD Unavailable Rocky Zepeda DO Unavailable Philip Dumont MD Unavailable Meredith Carrera PA-C Unavailable [phone] Neil Kent MD Unavailable Juan Pablo Emmanuel MD Unavailable Audrey Waite PA-C Unavailable Valery Veronica PA-C Unavailable [phone] Hemrinia Hatch MD Unavailable Jelena David OD Unavailable Juan Pablo Emmanuel MD Unavailable Maru Man PA-C Unavailable + Maru Man PA-C Unavailable +[phone] Jelena David OD Unavailable [phone] Madeline Fabiano Gabo CLERICAL WAREHOUSE WORKER Unavailable [phone] Encounter Details Date Type Department Care Team (Late st Contact Info) Description 07/07/2022 MyC Medical Advice [facility] Heart [facility] [address] [facility] [address] [place] [address] Livan Sharif MD [address] [facility] [address] [place], [place] 4[address]15 Social History Tobacco Use Types Packs/Day Years [...] How often do you attend voodoo or taoist serv ices? Never 09/22/2021 Do [...] a senior care (including now)? No 09/22/2021 [place] Depression Scale Answer Date Recorded [place] Depression Score 5 01/14/2021 Last EPDS Self Harm Result Not on file 01/14 Education Answer Date Recorded What is the highest level of school you have completed or the highest degree you have received? 12th grade 08/07/2020 Comments No Sex and Gender Information Value Date Recorded Sex Assigned at Female 03/02/2021 5:45 PM CDT Legal Sex Female 4:13 AM BEAM DOFFER Gender Identity Female 03/02/2021 5:45 PM CDT Sexual Orientation Straight 02/28/2020 12 :51 AM CDT COVID-19 Exposure Response Date Recorded In the last 10 days, have yo u been in contact with someone who was confirmed or suspected to have Coronavirus/COVID-19? No / Unsure 06/25/2022 8:44 AM BEAM DOFFER documented as of this encounter Plan of Treatment Upcoming Encounters Date Type Department Care Team (Late st Contact Info) Description 12/19/2024 2:00 PM CDT Office Visit [facility] [address] [place] [phone] Lauren Claudio PA-C [address] [place] [address] 12/26/2024 7:30 AM CDT Office Visit [facility] [address] [phone] Neil Kent MD [address] [place] [address] 04/16/2025 11:00 AM CDT Virtual Visit [facility] Gastroenterology Clinic [address] [place] [address] Meredith Carrera PA-C [address] [place] [address] documented as of this encounter Visit Diagnoses [...] as of this encounter Care Teams Professional Bondsman Relationship Specialty Start Date End Date Marija Edgar APRN CNP PCP - General Nurse Practitioner 04/30/20 04/14/23 Esha Grimm PA-C [address] [place] [phone] PCP - General Family Medicine 05/04/23 Lita Oseguera Personal Advocate & Liaison (PAL) 02/28/20 03/27/23 Marija Edgar APRN HANDKERCHIEF CUTTER Assigned PCP 06/08/20 04/29/23 Keisha Dotson MD 9 [place] [address] Assigned Neuroscience Provider 06/04/20 04/01/23 [facility] [place] [address] Pharmacist Pharmacist 04/17/21 Rain Galaviz PA-C [address] [place] [place] [address] [address] [facility] [place] [address] Physician Director Intelligence Analysis Programs Dermatology 04/28/21 Tavia Wyatt MD [address] [place] [place] [address] [address] [facility] [place] [address] Dermatology 07/14/21 Erica Farrell APRN HANDKERCHIEF CUTTER [address] [place] [address] Nurse Practitioner Cardiovascular Disease 09/09/21 Rich Barrett MD [address] [place] 684135 Physician Ophthalmology 01/21/22 Neil Kent MD 500 [place] [address] Dermatology 02/24/22 Roney Story DPM [address] [facility] [address] [place] [address] Assigned Musculoskeletal Provider 03/20/22 08/13/22 [facility] [address] [place] [address] Assigned MTM Pharmacist 04/07/22 Jelena David OD 3305 [facility] [place] [address] Assigned Surgical Provider 05/08/22 10/08/22 Livan Sharif MD [address] [place] [address] [place] [address] Cardiovascular Disease 05/14/22 Livan Sharif MD [address] [place] [address] [place] [address] Assigned Heart and Vascular Provider 06/12/22 07/23/22 Catherine Cm MD [address] [address] [place] 155035 Cardiovascular Disease 07/21/22 Valery Veronica PAUcheC 909 [place] [address] Physician Director Intelligence Analysis Programs Dermatology 07/21/22 Catherine Cm MD [address] [place] [address] [place] [address] Assigned Heart and Vascular Provider 07/24/22 11/05/22 Johnny Murillo MD [address] [place] [address] Assigned Musculoskeletal Provider 08/14/22 10/08/22 Brea Quinn APRN HANDKERCHIEF CUTTER 500 [place] [address] Nurse Practitioner Dermatology 09/21/22 Brea Quinn APRN HANDKERCHIEF CUTTER 6401 [facility] [place] [address] Assigned Surgical Provider 10/09/22 05/01/24 [place] [address] [facility] 300 [place] [address] Assigned Musculoskeletal Provider 10/09/22 05/01/24 Livan Sharif MD 6405 [facility] [address] [place] [address] Assigned Heart and Vascular Provider 11/06/22 11/12/22 Catherine Cm MD 6405 [facility] [address] [place] [address] Assigned Heart and Vascular Provider 11/13/22 05/27/23 Sydnie Martinez RN Personal Advocate & Liaison (PAL) Family Medicine 03/28/23 07/31/23 Alfonso Renteria MD 57[address] [facility] [address] [place] [address] Assigned Neuroscience Provider 04/02/23 09/29/24 Cheng Todd PA-C [address] [place] [address] Assigned PCP 04/30/23 07/15/23 Radha Lomeli APRN HANDKERCHIEF CUTTER 6405 [facility] [address] [place] [address] Assigned Heart and Vascular Provider 05/28/23 11/29/24 Jelena David OD [address] [facility] [place] [address] Ophthalmology 06/15/23 Pao Joseph, VJ Personal Advocate & Liaison (PAL) Nurse 08/01/23 11/07/23 Esha Grimm PA-C [address] [place] [phone] Assigned PCP 07/16/23 Valery Veronica PA-C [address] [place] [address] Physician Director Intelligence Analysis Programs Dermatology 09/19/23 Rey Tay MD [address] [place] [address] 211305 Gastroenterology 09/20/23 Rokcy Zepeda DO [address] [place] [address] Physician Gastroenterology 09/20/23 Philip Dumont MD 516 [place] [address] Physician Ophthalmology 09/22/23 Meredith Carrera PA-C [address] [place] [address] Assigned Gastroenterology Provider 11/01/23 Neil Kent MD [address] [address] Dermatology 11/02/23 [place] [address] [place], [place] [address] Neurological Surgery 12/26/23 Audrey Waite PA-C [address] [place] [address] Physician Director Intelligence Analysis Programs Dermatology 02/28/24 Valery Veronica PA-C [address]30 [address] [place] [address] Physician Director Intelligence Analysis Programs Dermatology 04/10/24 Herminia Hatch MD [address] [place] [address] [id number] Assigned Rheumatology Provider 07/02/24 [place] [address] [place] [address] [place] [address] Ophthalmology 08/30/24 [place] [address] [place] [address] Assigned Neuroscience Provider 09/30/24 Maru Man PA-C [address] [place] [address] Physician Director Intelligence Analysis Programs Dermatology 10/03/24 Maru Man PA-C [address] [place] [address] Physician Director Intelligence Analysis Programs Dermatology 10/22/24 Jelena David OD 3305 [facility] [place] [address] Assigned Surgical Provider 10/31/24 Fabiano Correa NP [address] [place] [address] Assigned Heart and Vascular Provider 11/30/24 documented as of this encounter
--- OUTSIDE RECORDS SUMMARY | 2024-12-17 21:43 | XMS_ITS | Encounter Summary ---
Author Organization [place] Address [address] [place] [address] Care Team Providers Care Corporate Planning Manager Name Role Phone Diana Desir Stanislav [facility] Unavailable Rain Galaviz PA-C Unavailable Tavia Wyatt MD Unavailable Erica Farrell APRN NURSING SECRETARY Unavailable Rich Barrett MD Unavailable [phone] Neil Kent MD Unavailable ThangKendrickDiana Stanislav [facility] Unavailable [phone] Livan Sharif MD Unavailable Catherine Cm MD Unavailable + Valery Veronica-C Unavailable Brea Quinn APRN NURSING SECRETARY Unavailable Esha Grimm PA-C Primary Care Provider Radha Lomeli APRN NURSING SECRETARY Unavailable Jelena David OD Unavailable Esha Grimm PA-C Unavailable [phone] Valery Veronica PA-C Unavailable Rey Tay MD Unavailable Rocky Zepeda DO Unavailable Philip Dumont MD Unavailable Meredith Carrera-C Unavailable [phone] Neil Kent MD Unavailable Juan Pablo Emmanuel MD Unavailable Audrey Waite-C Unavailable Valery Veronica-C Unavailable Herminia Hatch MD Unavailable Jelena David OD Unavailable [phone] Juan Pablo Emmanuel MD Unavailable Maru ManC Unavailable Maru ManC Unavailable Jelena David OD Unavailable Fabiano Correa NP Unavailable [phone] Encounter Details Date Type Department Care Team (Late st Contact Info) Description 11/21/2024 Results Follow-Up [facility] [place] [address] [place] [address] Audrey Díaz PA-C Subj: Message about your results Social History Tobacco Use Types Packs/Day Years [...] Score 1 10/24/2024 [facility] [...] exercise at this level? 20 min 05/07/2024 [place] Depression Scale Answer Date Recorded [place] [...] PM CDT Legal Sex Female 4:13 AM ETHICS MANAGER Gender Identity Female 03/02/2021 5:45 PM CDT Sexual Orientation Straight 02/28/2020 12 :51 AM CDT documented as of this encounter Plan of Treatment Upcoming Encounters Date Type Department Care Team (Late st Contact Info) Description 12/19/2024 2:00 PM CDT Office Visit [facility] [address] [place] [phone] Lauren Claudio PA-C [address] [place] [address] 12/26/2024 7:30 AM CDT Office Visit [address] [phone] Neil Kent MD [address] [place] [address] 594615 04/16/2025 11:00 AM CDT Virtual Visit [facility] [place] [address] 4th [place] [phone] Meredith Carrera PA-C [address] [place] [address] documented as of this encounter Visit Diagnoses [...] as of this encounter Care Teams Corporate Planning Manager Relationship Specialty Start Date End Date Esha Grimm PA-C [address] [place] [phone] PCP - General Family Medicine 05/04/23 Diana Desir, [facility] [place] [address] Pharmacist Pharmacist 04/17/21 Rain Galaviz PA-C [address] [place] [address] DR [facility] [facility] [place] [address] Physician Force Adjustment Supervisor Dermatology 04/28/21 Tavia Wyatt MD [address] [place] [address] [address] [facility] [place] [address] Dermatology 07/14/21 Erica Farrell APRN NURSING SECRETARY [address] [place] [phone] Nurse Practitioner Cardiovascular Disease 09/09/21 Rich Barrett MD [address] [place] [address] Physician Ophthalmology 01/21/22 Neil Kent MD [address] [place], [place] 281395 Dermatology 02/24/22 [facility] [address] [place] [address] 083356 Assigned [place] Pharmacist 04/07/22 Livan Sharif MD [address] [place] [address] [place] [id number] Cardiovascular Disease 05/14/22 Catherine Cm MD [address] [place] [address] [place] [address] Cardiovascular Disease 07/21/22 Valery Veronica, PA-C [address] [place] [address] 940625 Physician Force Adjustment Supervisor Dermatology 07/21/22 Brea Quinn APRN NURSING SECRETARY [address] [place] [address] Nurse Practitioner Dermatology 09/21/22 Radha Lomeli APRN NURSING SECRETARY [address] [place] [address] Assigned Heart and Vascular Provider 05/28/23 11/29/24 Jelena David OD [address] [facility] [place] [address] MD Ophthalmology 06/15/23 Esha Grimm PA-C [address] [place] [phone] Assigned PCP 07/16/23 Valery Veronica PA-C [address] [place] [address] Physician Force Adjustment Supervisor Dermatology 09/19/23 Rey Tay MD [address] [place] [address] [phone] Gastroenterology 09/20/23 Rocky Zepeda DO [address] [place] [address] 186205 Physician Gastroenterology 09/20/23 Philip Dumont MD [address] [place] [address] 888025 Physician Ophthalmology 09/22/23 Meredith Carrera PA-C [address] [place] [address] 407505 Assigned Gastroenterology Provider 11/01/23 Neil Kent MD [address] [place] [address] Dermatology 11/02/23 [place] [address] [place] [address] Neurological Surgery 12/26/23 Audrey Waite PA-C [address] [place] [address] Physician Force Adjustment Supervisor Dermatology 02/28/24 Valery Veronica PA-C 191537 [address], [place] [address] Physician Force Adjustment Supervisor Dermatology 04/10/24 Herminia Hatch MD [address] [place] [address] [phone] Assigned Rheumatology Provider 07/02/24 Jelena David OD [address] [facility] [place] [address] Ophthalmology 08/30/24 [place] [address] [place] [address] Assigned Neuroscience Provider 09/30/24 Maru Man PA-C [address] [place] [address] Physician Force Adjustment Supervisor Dermatology 10/03/24 Maru Man PA-C [address] [place] [address] Physician Force Adjustment Supervisor Dermatology 10/22/24 Jelena David OD [address] [facility] [place] [address] Assigned Surgical Provider 10/31/24 Fabiano Correa NP [address] [place] [address] Assigned Heart and Vascular Provider 11/30/24 documented as of this encounter
--- OUTSIDE RECORDS SUMMARY | 2024-12-17 21:43 | XMS_ITS | Encounter Summary ---
Author Organization [place] Address [address] [place] [address] Care Team Providers Care Mass Spectroscopist Name Role Phone Diana Desir Stanislav [facility] Unavailable Rain Galaviz PA-C Unavailable Tavia Wyatt MD Unavailable Erica Farrell APRN PARAMEDIC Unavailable Rich Barrett MD Unavailable [phone] Neil Kent MD Unavailable ThangKendrickDiana Stanislav [facility] Unavailable [phone] Livan Sharif MD Unavailable Catherine Cm MD Unavailable + Valery Veronica-C Unavailable Brea Quinn APRN PARAMEDIC Unavailable Esha Grimm PA-C Primary Care Provider Radha Lomeli APRN PARAMEDIC Unavailable Jelena David OD Unavailable Esha Grimm PA-C Unavailable [phone] Valery Veronica PA-C Unavailable Rey Tay [...] Care Team (Late st Contact Info) Description 11/23/2024 Results Follow-Up [facility] - General Medicine & Pediatrics [facility] [place] [address] Luis Angel Leone MD [address] [place] [address] Subj: Message about your results Social History [...] Answer Date Recorded PHQ-2 Score 1 10/24/2024 [facility] - Occupational [...] exercise at this level? 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 Gender Identity Female 03/02/2021 5:45 PM CDT Sexual Orientation Straight 02/28/2020 12 :51 AM CDT documented as of this encounter Plan of Treatment Upcoming Encounters Date Type Department Care Team (Late st Contact Info) Description 12/19/2024 2:00 PM CDT Office Visit [facility] [address] [place] [phone] Lauren Claudio PA-C [address] [place] [address] 12/26/2024 7:30 AM CDT Office [facility] [address] [phone] Neil Kent MD [address] [place] [address] 04/16/2025 11:00 AM CDT Virtual Visit [facility] [place] [address] [place] [address] 4th [place] [phone] Meredith Carrera PA-C [address] [place] [address] 827355 documented as of this encounter Visit Diagnoses Not on filedocumented in this encounter Additional Health Concerns Infection Onset Date Last Indicated Resolved Time Influenza 11/21/2024 11/21/2024 11/28/2024 7:42 PM CDT Assessment Noted Time PHQ-9 Depression Total Score: 5 10/25/19 25 10:38 AM CDT documented as of this encounter Care Teams Mass Spectroscopist Relationship Specialty Start Date End Date Esha Grimm PA-C [address] [place] [phone] PCP - General Family Medicine 05/04/23 Diana Desir, [facility] [address] [place] [address] Pharmacist Pharmacist 04/17/21 Rain Galaviz PA-C [address] [place] [address] [address] [place] [address] Physician Charging Car Operator Dermatology 04/28/21 Tavia Wyatt MD [address] [place] [address] [address] [place] [id number] Dermatology 07/14/21 Erica Farrell APRN PARAMEDIC [address] [place], [place] 756[address] Nurse Practitioner Cardiovascular Disease 09/09/21 Rich Barrett MD [address] [place], [place] 234095 Physician Ophthalmology 01/21/22 Neil Kent MD 500 [place], [place] 647205 Dermatology 02/24/22 Diana Desir, [facility] [address] [place], [place] 836836 Assigned MTM Pharmacist 04/07/22 Livan Sharif MD [address] [place], [place] 561915 Cardiovascular Disease 05/14/22 Catherine Cm MD [address] [place], [place] 389735 Cardiovascular Disease 07/21/22 Valery Veronica, PA-C [address] [place], [place] 247145 Physician Charging Car Operator Dermatology 07/21/22 Brea Quinn APRN PARAMEDIC 500 [place], [place] 985725 Nurse Practitioner Dermatology 09/21/22 Armani Radha Stovall, FLAT POLISHER PARAMEDIC [address] [facility] [address] [place], [place] 145565 Assigned Heart and Vascular Provider 05/28/23 11/29/24 Jelena David OD [address] [facility] [address] [place] [id number] MD Ophthalmology 06/15/23 Esha Grimm PA-C [address] [place] [phone] Assigned PCP 07/16/23 Valery Veronica PA-C [address] [place] [address] 725635 Physician Charging Car Operator Dermatology 09/19/23 Rey Tay MD [address] [place] [address] 022075 Gastroenterology 09/20/23 Rocky Zepeda DO [address] [place] [address] 006605 Physician Gastroenterology 09/20/23 Philip Dumont MD [address] [place] [address] 181665 Physician Ophthalmology 09/22/23 Meredith Carrera PA-C [address] [place] [address] 591415 Assigned Gastroenterology Provider 11/01/23 Neil Kent MD [address] [address] Dermatology 11/02/23 [place] [address] [place] [address] Neurological Surgery 12/26/23 Audrey Waite PA-C [address] [place] [address] Physician Charging Car Operator Dermatology 02/28/24 Valery Veronica PA-C [address] [place] [address] Physician Charging Car Operator Dermatology 04/10/24 Herminia Hatch MD [address] [place] [address] Assigned Rheumatology Provider 07/02/24 Jelena David OD [address] [place] [address] [place] [address] Ophthalmology 08/30/24 [place] [address] [place] [address] Assigned Neuroscience Provider 09/30/24 Maru Man PA-C [address] [place] [address] Physician Charging Car Operator Dermatology 10/03/24 Maru Man PA-C [address] [place] [address] Physician Charging Car Operator Dermatology 10/22/24 Jelena David OD [address] [facility] [place] [address] Assigned Surgical Provider 10/31/24 Fabiano Correa NP [address] [place] [address] Assigned Heart and Vascular Provider 11/30/24 documented as of this encounter
--- OUTSIDE RECORDS SUMMARY | 2024-12-17 21:43 | XMS_ITS | Encounter Summary ---
Author Organization [place] Address [address] [place] [address] Care Team Providers Care Railroad Wheels And Axles Inspector Name Role Phone Diana Desir Stanislav [facility] Unavailable Rain Galaviz PA-C Unavailable Tavia Wyatt MD Unavailable Erica Farrell APRN HELP DESK OPERATOR Unavailable Rich Barrett MD Unavailable [phone] Neil Kent MD Unavailable ThangKendrickDiana Stanislav [facility] Unavailable [phone] Livan Sharif MD Unavailable Catherine Cm MD Unavailable + Valery Veronica-C Unavailable [phone] Brea Quinn APRN HELP DESK OPERATOR Unavailable [phone] Esha Grimm PA-C Primary Care Provider [phone] Radha Lomeli APRN HELP DESK OPERATOR Unavailable Jelena David OD Unavailable Esha Grimm PA-C Unavailable [phone] Valery Veronica PA-C Unavailable Rey Tay MD Unavailable Rocky Zepeda DO Unavailable Philip Dumont MD Unavailable Meredith CarreraC Unavailable [phone] Neil Kent MD Unavailable Juan Pablo Emmanuel MD Unavailable [phone] Audrey Waite-C Unavailable Valery Veronica-C Unavailable Herminia Hatch MD Unavailable Jelena David OD Unavailable Juan Pablo Emmanuel MD Unavailable Maru ManC Unavailable Maru Man PA-C Unavailable Jelena David OD Unavailable Fabiano Correa NP Unavailable Encounter Details Date Type Department Care Team (Latest Contact Info) Description 11/29/2024 Results Follow-Up [facility] [address] [place] [address] Meredith Carrera PA-C [address] [place] [address] Subj: Message about your results Social History [...] Date Recorded PHQ-2 Score 1 10/24/2024 [facility] - Occupational Stress [...] exercise at this level? 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 Gender Identity Female 03/02/2021 5:45 PM CDT Sexual Orientation Straight 02/28/2020 12 :51 AM CDT documented as of this encounter Plan of Treatment Upcoming Encounters Date Type Department Care Team (Late st Contact Info) Description 12/19/2024 2:00 PM CDT Office Visit [facility] [address] [place] [address] [phone] Lauren Claudio PA-C [address] [place] [address] 12/26/2024 7:30 AM CDT Office Visit [facility] [address] [phone] Neil Kent MD 500 [place] [address] 04/16/2025 11:00 AM CDT Virtual Visit [facility] Gastroenterology [facility] [address] [place] [address] 4th [place] [phone] Meredith Carrera PA-C [address] [place] [address] 005845 documented as of this encounter Visit Diagnoses Not on filedocumented in this encounter Additional Health Concerns Assessment Noted Time PHQ-9 Depression Total Score: 5 10/25/19 25 10:38 AM CDT documented as of this encounter Care Teams Railroad Wheels And Axles Inspector Relationship Specialty Start Date End Date Esha Grimm PA-C [address] [place] [phone] PCP - General Family Medicine 05/04/23 Diana Desir, [facility] [address] [place] [address] Pharmacist Pharmacist 04/17/21 Rain Galaviz PA-C [address] [place] [address] [address] [place] [address] Physician Bowling Or Skating Front Desk Clerk Dermatology 04/28/21 Tavia Wyatt MD [address] [place] [address] [address] [place] [address] Dermatology 07/14/21 Erica Farrell APRN HELP DESK OPERATOR [address] [place], [place] 409345 Nurse Practitioner Cardiovascular Disease 09/09/21 Rich Barrett MD [address] [place], [place] 331545 Physician Ophthalmology 01/21/22 Neil Kent MD 500 [place], [place] 070715 Dermatology 02/24/22 Diana Desir, [facility] [address] [place], [place] 577106 [facility] Pharmacist 04/07/22 Livan Sharif MD [address] [place] [address] Cardiovascular Disease 05/14/22 Catherine Cm MD [address] [place] 504045 Cardiovascular Disease 07/21/22 Valery Veronica PAUcheC 909 [place] [address] Physician Bowling Or Skating Front Desk Clerk Dermatology 07/21/22 Brea Quinn APRN HELP DESK OPERATOR 500 [place] [address] Nurse Practitioner Dermatology 09/21/22 Radha Lomeli APRN HELP DESK OPERATOR [address] [place] [address] Assigned Heart and Vascular Provider 05/28/23 11/29/24 Jelena David OD [address] [facility] [place] [address] MD Ophthalmology 06/15/23 Esha Grimm PA-C [address] [place] [phone] Assigned PCP 07/16/23 Valery Veronica PA-C [address] [place] [address] 311225 Physician Bowling Or Skating Front Desk Clerk Dermatology 09/19/23 Rey Tay MD [address] [place] [address] 781515 MD Gastroenterology 09/20/23 Rocky Zepeda DO [address] [place] [address] 855605 Physician Gastroenterology 09/20/23 Philip Dumont MD [address] [place] [address] 595635 Physician Ophthalmology 09/22/23 Meredith Carrera PA-C [address] [place] [address] 158675 Assigned Gastroenterology Provider 11/01/23 Neil Kent MD [address] 392000 Dermatology 11/02/23 [place] [address] [place] [address] Neurological Surgery 12/26/23 Audrey Waite PA-C 500 [place] [address] Physician Bowling Or Skating Front Desk Clerk Dermatology 02/28/24 Valery Veronica PA-C 290659 [place] [address] Physician Bowling Or Skating Front Desk Clerk Dermatology 04/10/24 Herminia Hatch MD [address] [place] [address] [phone] Assigned Rheumatology Provider 07/02/24 Jelena David, SONJA [address] [place] [address] [place] [address] Ophthalmology 08/30/24 [place] [address] [place] [address] Assigned Neuroscience Provider 09/30/24 Maru Man PA-C [address] [place] [address] Physician Bowling Or Skating Front Desk Clerk Dermatology 10/03/24 Maru Man PA-C [address] [place] [address] Physician Bowling Or Skating Front Desk Clerk Dermatology 10/22/24 Jelena David OD [address] [facility] [place] [address] Assigned Surgical Provider 10/31/24 Fabiano Correa NP [address] [place] [address] Assigned Heart and Vascular Provider 11/30/24 documented as of this encounter
--- OUTSIDE RECORDS SUMMARY | 2024-12-17 21:43 | XMS_ITS | Encounter Summary ---
Author Organization [facility] Address [address] [place] [address] Care Team Providers Care Coater Slate Name Role Phone Diana Desir [facility] Unavailable Rain Galaviz PA-C Unavailable Tavia Wyatt MD Unavailable [phone] Erica Farrell APRN SALES RECORD CLERK Unavailable Rich Barrett MD Unavailable [phone] Neil Kent MD Unavailable Diana Desir [facility] Unavailable Livan Sharif MD Unavailable Catherine Cm MD Unavailable + Valery Veronica PA-C Unavailable Brea Quinn SEPARATOR TENDER SALES RECORD CLERK Unavailable Brea Quinn SEPARATOR TENDER SALES RECORD CLERK Unavailable Jose Francisco Johnson MD Unavailable Alfonso Renteria MD Unavailable [phone] Esha Grimm PA-C Primary Care Provider [phone] Radha Lomeli APRN SALES RECORD CLERK Unavailable Jelena David OD Unavailable Pao Joseph RN Unavailable Unavailable Esha Grimm Adam PA-C Unavailable [phone] Valery Veronica PA-C Unavailable Rey Tay MD Unavailable Rocky Zepeda DO Unavailable Philip Dumont MD Unavailable Meredith Carrera PA-C Unavailable Neil Kent MD Unavailable Juan Pablo Emmanuel MD Unavailable Audrey Waite PA-C Unavailable Valery Veronica PA-C Unavailable [phone] Herminia Hatch MD Unavailable Jelena David OD Unavailable [phone] Juan Pablo Emmanuel MD Unavailable [phone] Maru Man PA-C Unavailable Maru Man PA-C Unavailable Jelena David OD Unavailable Fabiano Correa NP Unavailable [phone] Encounter Details Date Type Department Care Team (Late st Contact Info) Description 09/08/2023 [facility] [place] Medical Advice [facility] [address] [place] [address] Marija Polanco, RN Social History Tobacco Use Types Packs/Day [...] Score 0 06/20/2023 [facility] [...] exercise at this level? 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 Gender Identity Female 03/02/2021 5:45 PM CDT Sexual Orientation Straight 02/28/2020 12 :51 AM CDT documented as of this encounter Plan of Treatment Upcoming Encounters Date Type Department Care Team (Late st Contact Info) Description 12/19/2024 2:00 PM CDT Office Visit [facility] [address] [place] [phone] Lauren Claudio PA-C [id number] [place] [address] 12/26/2024 7:30 AM CDT Office Visit [facility] [address] [phone] Neil Kent MD 500 [place] [address] 04/16/2025 11:00 AM CDT Virtual Visit [facility] [place] [address] [place] [address] 4th [place] [phone] Meredith Carrera PA-C [address] [place] [address] [phone] documented as of this encounter Visit Diagnoses [...] Score: 4 06/20/20 23 8:40 AM LEARNING AND DEVELOPMENT SPECIALIST documented as of this encounter Care Teams Coater Slate Relationship Specialty Start Date End Date Esha Grimm PA-C [address] [place] [phone] PCP - General Family Medicine 05/04/23 Diana Desir, [facility] [address] [place] [address]858 Pharmacist Pharmacist 04/17/21 Rain Galaviz PA-C [address] [place] [place] [address] [address] [place] [address] Physician Baseball Glove Stuffer Dermatology 04/28/21 Tavia Wyatt MD [address] [place] [address] [address] [place] [address] Dermatology 07/14/21 Erica Farrell APRN SALES RECORD CLERK [address] [place] 335005 Nurse Practitioner Cardiovascular Disease 09/09/21 Rich Barrett MD [address] [place] 263865 Physician Ophthalmology 01/21/22 Neil Kent MD 500 [place] [address] Dermatology 02/24/22 [facility] [address] [place] [address] Assigned MTM Pharmacist 04/07/22 Livan Sharif MD [address] [place] [address] Cardiovascular Disease 05/14/22 Catherine Cm MD [address] [place] [address] Cardiovascular Disease 07/21/22 Valery Veronica PA-C 909 [place] [address] Physician Baseball Glove Stuffer Dermatology 07/21/22 Brea Quinn APRN SALES RECORD CLERK 500 [place] [address] Nurse Practitioner Dermatology 09/21/22 Brea Quinn APRN SALES RECORD CLERK 6401 [place] [address] Assigned Surgical Provider 10/09/22 05/01/24 [place] [address] [address] [facility] 300 [place] [address] Assigned Musculoskeletal Provider 10/09/22 05/01/24 Alfonso Renteria MD 5775 [facility] 200 [place] [address] Assigned Neuroscience Provider 04/02/23 09/29/24 Radha Lomeli APRN SALES RECORD CLERK 6[address] [facility] [address] [place] [address] Assigned Heart and Vascular Provider 05/28/23 11/29/24 Jelena David OD [address] [place] [address] Ophthalmology 06/15/23 Pao Joseph, VJ Personal Advocate & Liaison (PAL) Nurse 1/22/24 4/29/24 Esha Grimm PA-C [address] [place] [phone] Assigned PCP 07/16/23 Valery Veronica PA-C [address] [place] [address] 801955 Physician Baseball Glove Stuffer Dermatology 09/19/23 Rey Tay MD [address] [place] [address] 312105 MD Gastroenterology 09/20/23 Rocky Zepeda DO [address] [place] [address] 261765 Physician Gastroenterology 09/20/23 Philip Dumont MD [address] [place] [address] 560095 Physician Ophthalmology 09/22/23 Meredith Carrera PA-C [address] [place] [address] 091455 Assigned Gastroenterology Provider 11/01/23 Neil Kent MD [address] [place] [address] Dermatology 11/02/23 [place] [address] [place] [address] Neurological Surgery 12/26/23 Audrey Waite PA-C 500 [place] [address] Physician Baseball Glove Stuffer Dermatology 02/28/24 Valery Veronica PA-C [address] [place] [address] Physician Baseball Glove Stuffer Dermatology 04/10/24 Herminia Hatch MD [address] [place] [address] Assigned Rheumatology Provider 07/02/24 Jelena David OD [address] [place] [address] [place] [address] Ophthalmology 08/30/24 [place] [address] [place] [address] Assigned Neuroscience Provider 09/30/24 Maru Man PA-C [address] [place] [address] Physician Baseball Glove Stuffer Dermatology 10/03/24 Maru Man PA-C [address] [place] [address] Physician Baseball Glove Stuffer Dermatology 10/22/24 Jelena David OD [address] [place] [address] [place] [address] Assigned Surgical Provider 10/31/24 Fabiano Correa NP [address] [place] [address] Assigned Heart and Vascular Provider 11/30/24 documented as of this encounter
--- OUTSIDE RECORDS SUMMARY | 2024-12-17 21:43 | XMS_ITS | Encounter Summary ---
Author Organization [facility] Address [address] [place] [address] Care Team Providers Care Executive Communications Manager Name Role Phone Diana Desir [facility] Unavailable Rain Galaviz PA-C Unavailable Tavia Wyatt MD Unavailable [phone] Erica Farrell APRN RESEARCH PROFESSOR OF BIOSTATISTICS Unavailable Rich Barrett MD Unavailable [phone] Neil Kent MD Unavailable Diana Desir [facility] Unavailable Livan Sharif MD Unavailable Catherine Cm MD Unavailable + Valery Veronica PA-C Unavailable Brea Quinn ASP WEB DEVELOPER RESEARCH PROFESSOR OF BIOSTATISTICS Unavailable Brea Quinn ASP WEB DEVELOPER RESEARCH PROFESSOR OF BIOSTATISTICS Unavailable Jose Francisco Johnson MD Unavailable Alfonso Renteria MD Unavailable [phone] Esha Grimm PA-C Primary Care Provider [phone] Radha Lomeli APRN RESEARCH PROFESSOR OF BIOSTATISTICS Unavailable Jelena David OD Unavailable [phone] Pao Joseph RN Unavailable Unavailable Esha Grimm Adam PA-C Unavailable [phone] Valery Veronica PA-C Unavailable [phone] Rey Tay MD Unavailable Rocky Zepeda [...] Team (Late st Contact Info) Description 09/20/2023 [facility] [place] Medical Advice [facility] Gastroenterology Clinic [address] [place] [address] Jeffery Vieira, RN Social History [...] exercise at this level? 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 Gender Identity Female 03/02/2021 5:45 PM CDT Sexual Orientation Straight 02/28/2020 12 :51 AM CDT documented as of this encounter Plan of Treatment Upcoming Encounters Date Type Department Care Team (Late st Contact Info) Description 12/19/2024 2:00 PM CDT Office Visit [facility] [address] [place] [phone] Lauren Claudio PA-C [address] [place] [address] 12/26/2024 7:30 AM CDT Office Visit [facility] [address] [phone] Neil Kent MD [address] [place] [address] 04/16/2025 11:00 AM CDT Virtual Visit [facility]ology [facility] [place] [address] [place] [address] 4th [place] [phone] Meredith Carrera PA-C [address] [place] [address] 354625 documented as of this encounter Visit Diagnoses [...] Total Score: 4 06/20/20 23 8:40 AM FOUR CORNER FORMER MACHINE OPERATOR documented as of this encounter Care Teams Executive Communications Manager Relationship Specialty Start Date End Date Esha Grimm PA-C [address] [place] [phone] PCP - General Family Medicine 05/04/23 Diana Desir, [facility] [address] [place] [address] Pharmacist Pharmacist 04/17/21 Rain Galaviz PA-C [address] [place] [address] [address] [place] [address] Physician Ring Striker Dermatology 04/28/21 Tavia Wyatt MD [address] [place] [address] [address] [facility] [address] Dermatology 07/14/21 Erica Farrell APRN RESEARCH PROFESSOR OF BIOSTATISTICS [address] [place] 730215 Nurse Practitioner Cardiovascular Disease 09/09/21 Rich Barrett MD [address] [place] 184685 Physician Ophthalmology 01/21/22 Neil Kent MD 500 [place] [address] Dermatology 02/24/22 Diana Desir, [facility] 3033 [place] [address] Assigned MTM Pharmacist 04/07/22 Livan Sharif MD [address] [place] [address] Cardiovascular Disease 05/14/22 Catherine Cm MD [address] [place] [address] Cardiovascular Disease 07/21/22 Valery Veronica PA-C 909 [place] [address] Physician Ring Striker Dermatology 07/21/22 Brea Quinn APRN RESEARCH PROFESSOR OF BIOSTATISTICS 500 [place] [address] Nurse Practitioner Dermatology 09/21/22 Brea Quinn APRN RESEARCH PROFESSOR OF BIOSTATISTICS 6401 [facility] [place] [address] Assigned Surgical Provider 10/09/22 05/01/24 [place] [address] [address] [facility] 300 [place] [address] Assigned Musculoskeletal Provider 10/09/22 05/01/24 Alfonso Renteria MD 5775 [facility] 200 [place], [place] 216326 Assigned Neuroscience Provider 04/02/23 09/29/24 Radha Lomeli APRN RESEARCH PROFESSOR OF BIOSTATISTICS 6405 [facility] [address] [place] [address] Assigned Heart and Vascular Provider 05/28/23 11/29/24 Jelena David OD [address] [place] [address] Ophthalmology 06/15/23 Pao Joseph, VJ Personal Advocate & Liaison (PAL) Nurse 08/01/23 11/07/23 Esha Grimm PA-C [address] [place] [phone] Assigned PCP 07/16/23 Valery Veronica PA-C [address] [place] [address] 589945 Physician Ring Striker Dermatology 09/19/23 Rey Tay MD [address] [place] [address] 518145 MD Gastroenterology 09/20/23 Rocky Zepeda DO [address] [place] [address] 649105 Physician Gastroenterology 09/20/23 Philip Dumont MD [address] [place] [address] 757915 Physician Ophthalmology 09/22/23 Meredith Carrera PA-C [address] [place] [address] 530525 Assigned Gastroenterology Provider 11/01/23 Neil Kent MD [address] [place] [address] Dermatology 11/02/23 [place] [address] [place] [address] Neurological Surgery 12/26/23 Audrey Waite PA-C 500 [place] [address] Physician Ring Striker Dermatology 02/28/24 Valery Veronica PA-C 829454 [facility] [place] [address] Physician Ring Striker Dermatology 04/10/24 Herminia Hatch MD [address] [place] [address] Assigned Rheumatology Provider 07/02/24 Jelena David OD [address] [place] [address] [place] [address] Ophthalmology 08/30/24 [place] [address] [place] [address] Assigned Neuroscience Provider 09/30/24 Maru Man PA-C [address] [place] [address] Physician Ring Striker Dermatology 10/03/24 Maru Man PA-C [address] [place] [address] Physician Ring Striker Dermatology 10/22/24 Jelena David OD [address] [place] [address] [place] [address] Assigned Surgical Provider 10/31/24 Fabiano [place] NP 6405 [facility] [place] [address] Assigned Heart and Vascular Provider 11/30/24 documented as of this encounter
--- OUTSIDE RECORDS SUMMARY | 2024-12-17 21:43 | XMS_ITS | Encounter Summary ---
Author Organization [facility] Address [address] [place] [address] Care Team Providers Care Sulfide Head Operator Name Role Phone Diana Desir Stanisl[facility] Unavailable Rain Galaviz PA-C Unavailable [phone] Tavia Wyatt MD Unavailable Erica Farrell APRN EVP Unavailable Rich Barrett MD Unavailable [phone] Neil Kent MD Unavailable ThangKendrickDiana Stanislav [facility] Unavailable [phone] Livan Sharif MD Unavailable Catherine Cm MD Unavailable + Valery Veronica-C Unavailable Brea Quinn APRN EVP Unavailable Esha Grimm PA-C Primary Care Provider Radha Lomeli APRN EVP Unavailable Jelena David OD Unavailable Esha Grimm PA-C Unavailable [phone] Valery Veronica PA-C Unavailable Rey Tay MD Unavailable Duane Orckyanne [facility] Unavailable Philip Dumont MD Unavailable [phone] LoreMeredith mayers PA-C Unavailable [phone] Neil Kent MD Unavailable Juan Pablo Emmanuel MD Unavailable [phone] Audrey Waite PA-C Unavailable [phone] Valery Veronica PA-C Unavailable Herminia Hatch MD Unavailable Jelena David OD Unavailable Juan Pablo Emmanuel MD Unavailable [phone] Maru Man-C Unavailable [phone] Maru Man-C Unavailable [phone] Jelena David OD Unavailable Encounter Details Date Type Department Care Team (Latest Contact Info) Description 11/21/2024 Travel Social History Tobacco Use Types Packs/Day [...] [facility] or [facility] services? 1 to 4 [...] PHQ-2 Score 1 10/24/2024 [facility] - [...] exercise at this level? 20 min 05/07/2024 [place] Depression Scale Answer Date Recorded [place] [...] PM CDT Legal Sex Female 4:13 AM OBGYN HOSPITALIST PHYSICIAN Gender Identity Female 03/02/2021 5:45 PM CDT Sexual Orientation Straight 02/28/2020 12 :51 AM CDT documented as of this encounter Plan of Treatment Upcoming Encounters Date Type Department Care Team (Late st Contact Info) Description 12/19/2024 2:00 PM CDT Office Visit [facility] [address] [place] [phone] Lauren Claudio PA-C [address] [place] [address] 12/26/2024 7:30 AM CDT Office Visit [facility] [address] [phone] Neil Kent MD [address] [place] [address] 04/16/2025 11:00 AM CDT Virtual Visit [facility] Gastroenterology Clinic [place] 368999 [facility] 4th [place] [phone] Meredith Carrera PA-C [address] [place] [address] documented as of this encounter Visit Diagnoses Not on filedocumented in this encounter Additional Health Concerns Infection Onset Date Last Indicated Resolved Time Rule Out COVID-19 11/20/2024 11/20/2024 11/21/2024 11:23 AM CDT Rule Out COVID-19 11/21/2024 11/21/2024 11/22/2024 12:10 AM CDT Assessment Noted Time PHQ-9 Depression Total Score: 5 10/25/19 25 10:38 AM CDT documented as of this encounter Care Teams Sulfide Head Operator Relationship Specialty Start Date End Date Esha Grimm PA-C [address] [place] [phone] PCP - General Family Medicine 05/04/23 Diana Desir, [facility] [address] [place], [place] 599746 Pharmacist Pharmacist 04/17/21 Rain Galaviz PA-C [address] [place] [address] [address] [place] [address] Physician Embosser Apprentice Dermatology 04/28/21 Tavia Wyatt MD [address] [place] [address] [address] [facility] [facility] [place] [id number] Dermatology 07/14/21 Erica Farrell APRN EVP 6405 [facility] [address] [place] [address] Nurse Practitioner Cardiovascular Disease 09/09/21 iRch Barrett MD [address] [place], [place] 402065 Physician Ophthalmology 01/21/22 Neil Kent MD 500 [place], [place] 744955 Dermatology 02/24/22 Diana Desir, [facility] 3033 [place], [place] 829206 Assigned MTM Pharmacist 04/07/22 Livan Sharif MD [address] 148875 Cardiovascular Disease 05/14/22 Catherine Cm MD [address] [place] [address] 715325 Cardiovascular Disease 07/21/22 Valery Veronica, PA-C 909 [place], [place] 048215 Physician Embosser Apprentice Dermatology 07/21/22 Brea Quinn APRN EVP 500 [place], [place] 970945 Nurse Practitioner Dermatology 09/21/22 Radha Lomeli APRN EVP [address] [place] [address] Assigned Heart and Vascular Provider 05/28/23 11/29/24 Frankie Jelena Garcia, SONJA [address] [facility] [place] [address] Ophthalmology 06/15/23 Esha Grimm PA-C [address] [place] [phone] Assigned PCP 07/16/23 Valery Veronica PA-C [address] [place] [address] 902975 Physician Embosser Apprentice Dermatology 09/19/23 Rey Tay MD [address] [place] [address] 278765 MD Gastroenterology 09/20/23 Rocky Zepeda DO [address] [place] [address] 386575 Physician Gastroenterology 09/20/23 Philip Dumont MD 6 [place], [place] 715045 Physician Ophthalmology 09/22/23 Meredith Carrera PA-C [address] [place] [address] 537435 Assigned Gastroenterology Provider 11/01/23 Neil Kent MD [address] [place] [address] 639410 Dermatology 11/02/23 [place] [address] [place] [address] Neurological Surgery 12/26/23 Audrey Waite PA-C 500 [place] [address] Physician Embosser Apprentice Dermatology 02/28/24 Valery Veronica PA-C [id number] [address] [place] [address] Physician Embosser Apprentice Dermatology 04/10/24 Herminia Hatch MD [address] [place] [address] 9[address] Assigned Rheumatology Provider 07/02/24 Jelena David OD [address] [place] [address] [place] [address] Ophthalmology 08/30/24 [place] [address] [place] [address] Assigned Neuroscience Provider 09/30/24 Maru Man PA-C [address] [place] [address] Physician Embosser Apprentice Dermatology 10/03/24 Maru Man PA-C [address] [place] [address] 14[address] Physician Embosser Apprentice Dermatology 10/22/24 Jelena David OD [address] [place] [address] [place] [address] Assigned Surgical Provider 10/31/24 documented as of this encounter
--- OUTSIDE RECORDS SUMMARY | 2024-12-17 21:43 | XMS_ITS | Encounter Summary ---
Author Organization [facility] Address [address] [place] [address] Care Team Providers Care Industrial Waste Inspector Name Role Phone Diana Desir [facility] Unavailable [phone] Rain Galaviz PA-C Unavailable Tavia Wyatt MD Unavailable [phone] Erica Farrell APRN GROCERY STORE MANAGER Unavailable Rich Barrett MD Unavailable [phone] Neil Kent MD Unavailable Diana Desir [facility] Unavailable [phone] Livan Sharif MD Unavailable Catherine Cm MD Unavailable + Valery Veronica PA-C Unavailable Brea Quinn REVENUE AUDIT CLERK GROCERY STORE MANAGER Unavailable Brea Quinn REVENUE AUDIT CLERK GROCERY STORE MANAGER Unavailable Jose Francisco Johnson MD Unavailable Alfonso Renteria MD Unavailable [phone] Esha Grimm PA-C Primary Care Provider Radha Lomeli APRN GROCERY STORE MANAGER Unavailable Jelena David OD Unavailable [phone] Pao Joseph RN Unavailable Unavailable AlfaJesusEsha M PA-C Unavailable [phone] Valery Veronica PA-C Unavailable Rey Tay [...] Team (Late st Contact Info) Description 09/01/2023 [facility] Medical Advice [address] [address] Diana Desir, [facility] [address] [place], [place] 0[address] Social History Tobacco Use Types Packs/Day Years [...] often do you attend [facility] or rastafari services? 1 to 4 times [...] PHQ-2 Score 0 06/20/2023 [facility] - [facility]ational [...] exercise at this level? 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 Gender Identity Female 03/02/2021 5:45 PM CDT Sexual Orientation Straight 02/28/2020 12 :51 AM CDT documented as of this encounter Plan of Treatment Upcoming Encounters Date Type Department Care Team (Late st Contact Info) Description 12/19/2024 2:00 PM CDT Office Visit [facility] [address] [place] [address] Lauren Claudio, PAUcheC [address] [place] [address] 12/26/2024 7:30 AM CDT Office Visit [facility] [address] [phone] Neil Kent MD [address] [place] [address] 314435 04/16/2025 11:00 AM CDT Virtual Visit [facility] [place] [address] [place] [address] 4th [place] [phone] Meredith Carrera PA-C [address] [place] [address] 846075 documented as of this encounter Visit Diagnoses [...] Score: 4 06/20/20 23 8:40 AM SUPERVISOR SPECIAL EDUCATION documented as of this encounter Care Teams Industrial Waste Inspector Relationship Specialty Start Date End Date Esha Grimm PA-C [address] [place] [phone] PCP - General Family Medicine 05/04/23 Diana Desir, [facility] [address] [place] [address] Pharmacist Pharmacist 04/17/21 Rain Galaviz PA-C [address] [place] [address] [address] [place] [address] Physician Personal Shopper Dermatology 04/28/21 Tavia Wyatt MD [address] [place] [address] [address] [place] [address] Dermatology 07/14/21 Erica Farrell APRN GROCERY STORE MANAGER [address] [place] [address] Nurse Practitioner Cardiovascular Disease 09/09/21 Rich Barrett MD [address] [place] [address] Physician Ophthalmology 01/21/22 Neil eKnt MD 500 [place], [place] 130815 Dermatology 02/24/22 Diana Desir, [facility] [address] [place] [address] Assigned MTM Pharmacist 04/07/22 Livan Sharif MD [address] [place] 720815 Cardiovascular Disease 05/14/22 Catherine Cm MD [address] [facility] [address] [place] [address] Cardiovascular Disease 07/21/22 Valery Veronica, PAUcheC 909 [place], [place] 411185 Physician Personal Shopper Dermatology 07/21/22 Brea Quinn APRN GROCERY STORE MANAGER 500 [place], [place] 842005 Nurse Practitioner Dermatology 09/21/22 Brea Quinn APRN GROCERY STORE MANAGER 6401 [facility] [place] 187102 Assigned Surgical Provider 10/09/22 05/01/24 [place] [address] [facility] 300 [place] [address] Assigned Musculoskeletal Provider 10/09/22 05/01/24 Alfonso Renteria MD 5775 [facility] 200 [place], [place] 798126 Assigned Neuroscience Provider 04/02/23 09/29/24 Radha Lomeli APRN GROCERY STORE MANAGER [address] [place] [id number] [place] [id number] Assigned Heart and Vascular Provider 05/28/23 11/29/24 Jelena David OD 3305 [facility] [place] [phone] MD Ophthalmology 06/15/23 Pao Joseph, RN Personal Advocate & Liaison (PAL) Nurse 08/01/23 11/07/23 Esha Grimm PA-C [address] [place] [address]83 Assigned PCP 07/16/23 Valery Veronica PA-C [address] [place] [address] Physician Personal Shopper Dermatology 09/19/23 Rey Tay MD [address] [place] [address] 355225 MD Gastroenterology 09/20/23 Rocky Zepeda DO [address] [place] [address] 614385 Physician Gastroenterology 09/20/23 Philip Dumont MD [address] [place] [address] 414065 Physician Ophthalmology 09/22/23 Meredith Carrera PA-C [address] [place] [address] 762065 Assigned Gastroenterology Provider 11/01/23 Neil Kent MD [address] [place] [address] 146710 Dermatology 11/02/23 [place] [address] [place] [address] Neurological Surgery 12/26/23 Audrey Waite PA-C 500 [place] [address] Physician Personal Shopper Dermatology 02/28/24 Valery Veronica PA-C 128473 [address] [address] Physician Personal Shopper Dermatology 04/10/24 Herminia Hatch MD [address] [place] [address] Assigned Rheumatology Provider 07/02/24 Jelena David, SONJA [address] [place] [address] [place] [address] Ophthalmology 08/30/24 [place] [address] [place] [address] Assigned Neuroscience Provider 09/30/24 Maru Man PA-C [address] [place] [address] Physician Personal Shopper Dermatology 10/03/24 Maru Man PA-C [address] [place] [address] Physician Personal Shopper Dermatology 10/22/24 Jelena David, SONJA [address] [place] [address] [place] [address] Assigned Surgical Provider 10/31/24 Fabiano Correa, MINE EXPERT [address] [place] [address] Assigned Heart and Vascular Provider 11/30/24 documented as of this encounter
--- OUTSIDE RECORDS SUMMARY | 2024-12-17 21:43 | XMS_ITS | Encounter Summary ---
Author Organization [facility] Address [address] [place] [address] Care Team Providers Care Robot Technician Name Role Phone Diana Desir Stanislav [facility] Unavailable Rain Galaviz PA-C Unavailable Tavia Wyatt MD Unavailable Erica Farrell APRN CAKE FORMER Unavailable Rich Barrett MD Unavailable [phone] Neil Kent MD Unavailable ThangKendrickDiana Stanislav [facility] Unavailable [phone] Livan Sharif MD Unavailable Catherine Cm MD Unavailable + Valery Veronica-C Unavailable Brea uQinn APRN CAKE FORMER Unavailable Esha Grimm PA-C Primary Care Provider Radha Lomeli APRN CAKE FORMER Unavailable Jelena David OD Unavailable Esha Grimm PA-C Unavailable [phone] Valery Veronica PA-C Unavailable Rey Tay MD Unavailable Duane Rockyanne [place] Unavailable Philip Dumont MD Unavailable [phone] LoreMeredith mayers PA-C Unavailable [phone] Neil Kent MD Unavailable Juan Pablo Emmanuel MD Unavailable [phone] Audrey Waite PA-C Unavailable [phone] Valery Veronica PA-C Unavailable [phone] Herminia Hatch MD Unavailable Jelena David OD Unavailable Juan Pablo Emmanuel MD Unavailable [phone] Maru Man-C Unavailable [phone] Maru Man-C Unavailable [phone] Jelena David OD Unavailable Encounter Details Date Type Department Care Team (Latest Contact Info) Description 11/22/2024 Travel Social History Tobacco Use Types Packs/Day [...] week 05/07/2024 How often do you attend [facility] or [facility] services? 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 Gender Identity Female 03/02/2021 5:45 PM CDT Sexual Orientation Straight 02/28/2020 12 :51 AM CDT documented as of this encounter Plan of Treatment Upcoming Encounters Date Type Department Care Team (Late st Contact Info) Description 12/19/2024 2:00 PM CDT Office Visit [facility] [address] [place] [phone] Lauren Claudio PA-C [address] [place] [address] 12/26/2024 7:30 AM CDT Office Visit [facility] [address] [address] Neil Kent MD [address] [place] [address] 04/16/2025 11:00 AM CDT Virtual Visit [facility] Clinic [address] 4th [place] [phone] Meredith Carrera PA-C [address] [place] [address] documented as of this encounter Visit Diagnoses Not on filedocumented in this encounter Additional Health Concerns Infection Onset Date Last Indicated Resolved Time Rule Out COVID-19 11/21/2024 11/21/2024 11/22/2024 12:10 AM CDT Influenza 11/21/2024 11/21/2024 11/28/2024 7:42 PM CDT Assessment Noted Time PHQ-9 Depression Total Score: 5 10/25/19 10:38 AM CDT documented as of this encounter Care Teams Robot Technician Relationship Specialty Start Date End Date Esha Grimm PA-C [address] [place] [phone] PCP - General Family Medicine 05/04/23 Diana Desir, [facility] [address] [place], [place] 334[address] Pharmacist Pharmacist 04/17/21 Rain Galaviz PA-C [address] [place] [address] [address] [place] [address] Physician Supervisor Chlorine Liquefaction Dermatology 04/28/21 Tavia Wyatt MD [address] [place] [address] [address] [place] [address] Dermatology 07/14/21 Erica Farrell APRN CAKE FORMER 6405 [facility] [address] [place] [address] Nurse Practitioner Cardiovascular Disease 09/09/21 Rich Barrett MD [address] [place] 082445 Physician Ophthalmology 01/21/22 Neil Kent MD 500 [place] [address] Dermatology 02/24/22 Diana Desir, [facility] 3033 [place], [place] 308986 Assigned MTM Pharmacist 04/07/22 Livan Sharif MD [address] [place] [phone] Cardiovascular Disease 05/14/22 Catherine Cm MD [address] [place] 438205 Cardiovascular Disease 07/21/22 Valery Veronica, PA-C 909 [place], [place] 207225 Physician Supervisor Chlorine Liquefaction Dermatology 07/21/22 Brea Quinn APRN CAKE FORMER 500 [place], [place] 446315 Nurse Practitioner Dermatology 09/21/22 Radha Lomeli APRN CAKE FORMER [address] [place] [address] Assigned Heart and Vascular Provider 05/28/23 11/29/24 Jelena David OD [address] [place] [address] MD Ophthalmology 06/15/23 Esha Grimm PA-C [address] [place] [address]83 Assigned PCP 07/16/23 Valery Veronica PA-C [address] [place] [address] 009605 Physician Supervisor Chlorine Liquefaction Dermatology 09/19/23 Rey Tay MD [address] [place] [address] MD Gastroenterology 09/20/23 Rocky Zepeda DO [address] [place] [address] 070345 Physician Gastroenterology 09/20/23 Philip Dumont MD 6 [place], [place] 775185 Physician Ophthalmology 09/22/23 Meredith Carrera PA-C [address] [place] [address] Assigned Gastroenterology Provider 11/01/23 Neil Kent MD [address] [place] [address] 468840 Dermatology 11/02/23 [place] [address] [place], [place] 707[address] Neurological Surgery 12/26/23 Audrey Waite PA-C 500 [place] [address] Physician Supervisor Chlorine Liquefaction Dermatology 02/28/24 Valery Veronica PA-C [address]43 [address] [place] [address] Physician Supervisor Chlorine Liquefaction Dermatology 04/10/24 Herminia Hatch MD [address] [place] [address] [id number] Assigned Rheumatology Provider 07/02/24 Jelena David OD [address] [place] [address] [place] [address] Ophthalmology 08/30/24 [place] [address] [place] [address] Assigned Neuroscience Provider 09/30/24 Maru Man PA-C [address] [place] [address] Physician Supervisor Chlorine Liquefaction Dermatology 10/03/24 Maru Man PA-C [address] [place] [address] Physician Supervisor Chlorine Liquefaction Dermatology 10/22/24 Jelena David OD [address] [place] [address] [place] [address] Assigned Surgical Provider 10/31/24 documented as of this encounter
--- OUTSIDE RECORDS SUMMARY | 2024-12-17 21:43 | XMS_ITS | Encounter Summary ---
Author Organization [facility] Address [address] [place] [address] Care Team Providers Care Agricultural Equipment Mechanic Name Role Phone Diana Desir [facility] Unavailable Rain Galaviz PA-C Unavailable Tavia Wyatt MD Unavailable [phone] Erica Farrell APRN GAS OPERATIONS ANALYST Unavailable Rich Barrett MD Unavailable [phone] Neil Kent MD Unavailable Diana Desir [facility] Unavailable Livan Sharif MD Unavailable Catherine Cm MD Unavailable + Valery Veronica PA-C Unavailable Brea Quinn TOWEL ROLLING MACHINE OPERATOR GAS OPERATIONS ANALYST Unavailable [phone] Brea Quinn TOWEL ROLLING MACHINE OPERATOR GAS OPERATIONS ANALYST Unavailable Jose Francisco Johnson MD Unavailable Alfonso Renteria MD Unavailable [phone] Esha Grimm PA-C Primary Care Provider [phone] Radha Lomeli APRN GAS OPERATIONS ANALYST Unavailable Jelena David OD Unavailable Pao Joseph RN Unavailable Unavailable AlfaJesusEsha M PA-C Unavailable [phone] Valery Veronica PA-C Unavailable Rey Tay [...] Team (Late st Contact Info) Description 09/08/2023 [facility] Medical Advice [facility] [place] 092579 [facility] 4th [place] [address] Mary Kelsey Social History Tobacco [...] Answer Date Recorded PHQ-2 Score 0 06/20/2023 [facility] - Occupational Stress Questionnaire [...] exercise at this level? 30 min 03/10/2023 [place] Depression Scale Answer Date Recorded [place] Depression Score 5 01/14/2021 Last EPDS Self [...] PM CDT Legal Sex Female 4:13 AM PIN INSERTER Gender Identity Female 03/02/2021 5:45 PM CDT Sexual Orientation Straight 02/28/2020 12 :51 AM CDT documented as of this encounter Plan of Treatment Upcoming Encounters Date Type Department Care Team (Late st Contact Info) Description 12/19/2024 2:00 PM CDT Office Visit [facility] [address] [place] [phone] Lauren Claudio PA-C [address] [place] [address] 12/26/2024 7:30 AM CDT Office Visit [facility] [address] [phone] Neil Kent MD 500 [place] [address] 04/16/2025 11:00 AM CDT Virtual Visit [facility] [place] [address] [place] [address] 4th [place] [phone] Meredith Carrera PA-C [address] [place] [address] 042785 documented as of this encounter Visit Diagnoses [...] Total Score: 4 06/20/20 23 8:40 AM PIN INSERTER documented as of this encounter Care Teams Agricultural Equipment Mechanic Relationship Specialty Start Date End Date Esha Grimm PA-C [address] [place] [phone] PCP - General Family Medicine 05/04/23 Diana Desir, [facility] [address] [place] [address] Pharmacist Pharmacist 04/17/21 Rain Galaviz PA-C [address] [place] [address] [address] [place] [address] Physician Clinical Quality Analyst Dermatology 04/28/21 Tavia Wyatt MD [address] [place] [address] [address] [place] [address] Dermatology 07/14/21 Erica Farrell APRN GAS OPERATIONS ANALYST [address] [place] [address] Nurse Practitioner Cardiovascular Disease 09/09/21 Rich Barrett MD [address] [place] [address]35 Physician Ophthalmology 01/21/22 Neil Kent MD 500 [place] [address] Dermatology 02/24/22 [facility] [address] [place] [address] Assigned MTM Pharmacist 04/07/22 Livan Sharif MD [address] [place] [address] Cardiovascular Disease 05/14/22 Catherine Cm MD [address] [place] [address] Cardiovascular Disease 07/21/22 Valery Veronica PA-C 909 [place] [address] Physician Clinical Quality Analyst Dermatology 07/21/22 Brea Quinn APRN GAS OPERATIONS ANALYST 500 [place] [address] Nurse Practitioner Dermatology 09/21/22 Brea Quinn APRN GAS OPERATIONS ANALYST 6401 [place] [address] Assigned Surgical Provider 10/09/22 05/01/24 [place] [address] [address] [facility] 300 [place] [address] Assigned Musculoskeletal Provider 10/09/22 05/01/24 Alfonso Renteria MD 5775 [facility] 200 [place] [address] Assigned Neuroscience Provider 04/02/23 09/29/24 Radha Lomeli APRN GAS OPERATIONS ANALYST [address] [facility] [address] [place] [address] Assigned Heart and Vascular Provider 05/28/23 11/29/24 Jelena David OD [address] [place] [address] Ophthalmology 06/15/23 Pao Joseph, VJ Personal Advocate & Liaison (PAL) Nurse 08/01/23 11/07/23 Esha Grimm PA-C [address] [place] [address] Assigned PCP 07/16/23 Valery Veronica PA-C [address] [place] [address] 908925 Physician Clinical Quality Analyst Dermatology 09/19/23 Rey Tay MD [address] [place] [address] 618685 MD Gastroenterology 09/20/23 Rocky Zepeda DO [address] [place] [address] 563725 Physician Gastroenterology 09/20/23 Philip Dumont MD [address] [place] [address] 980765 Physician Ophthalmology 09/22/23 Meredith Carrera PA-C [address] [place] [address] 344935 Assigned Gastroenterology Provider 11/01/23 Neil Kent MD [address] [place] [address] Dermatology 11/02/23 [place] [address] [place] [address] Neurological Surgery 12/26/23 Audrey Waite PA-C 500 [place] [address] Physician Clinical Quality Analyst Dermatology 02/28/24 Valery Veronica PA-C 144601 99 [place] [address] Physician Clinical Quality Analyst Dermatology 04/10/24 Herminia Hatch MD [address] [place] [address] Assigned Rheumatology Provider 07/02/24 [place] [address] [place] [address] [place] [address] Ophthalmology 08/30/24 [place] [address] [place] [address] Assigned Neuroscience Provider 09/30/24 Maru Man PA-C [address] [place] [address] Physician Clinical Quality Analyst Dermatology 10/03/24 Maru Man PA-C [address] [place] [address] Physician Clinical Quality Analyst Dermatology 10/22/24 Jelena David OD [address] [place] [address] [place] [address] Assigned Surgical Provider 10/31/24 Fabiano [place] NP [address] [place] [address] Assigned Heart and Vascular Provider 11/30/24 documented as of this encounter
--- OUTSIDE RECORDS SUMMARY | 2024-12-17 21:44 | XMS_ITS | Encounter Summary ---
Author Organization [facility] Address [address] [place] [address] 232[address] Care Team Providers Care Refinery Operator Coking Name Role Phone Diana Desir Stanislav [facility] Unavailable Rain Galaviz PA-C Unavailable Tavia Wyatt MD Unavailable Erica Farrell APRN PAYROLL SUPERVISOR Unavailable Rich Barrett MD Unavailable [phone] Neil Kent MD Unavailable ThangKendrickDiana Stanislav [facility] Unavailable [phone] Livan Sharif MD Unavailable Catherine Cm MD Unavailable + Valery Veronica-C Unavailable [phone] Brea Quinn APRN PAYROLL SUPERVISOR Unavailable Esha Grimm PA-C Primary Care Provider Radha Lomeli APRN PAYROLL SUPERVISOR Unavailable Jelena David OD Unavailable Esha Grimm PA-C Unavailable [phone] Valery Veronica PA-C Unavailable [phone] Rey Tay MD Unavailable DuaneRocky Unavailable Philip Dumont MD Unavailable PinoMeredith paez PA-C Unavailable [phone] Neil Kent MD Unavailable Juan Pablo Emmanuel MD Unavailable [phone] Audrey Waite PA-C Unavailable [phone] Valery Veronica PA-C Unavailable [phone] Herminia Hatch MD Unavailable Jelena David OD Unavailable Juan Pablo Emmanuel MD Unavailable [phone] Maru Man-C Unavailable [phone] Maru Man-C Unavailable Jelena David OD Unavailable Fabiano Correa NP Unavailable [phone] Encounter Details Date Type Department Care Team (Late st Contact Info) Description 10/01/2024 [facility] Adv[facility] Heart [address] [address] Marija Bialey RN Social History Tobacco Use Types Packs/Day [...] Answer Date Recorded PHQ-2 Score 1 02/07/2024 [facility] [...] exercise at this level? 20 min 05/07/2024 Winthrop Depression Scale Answer Date Recorded Winthrop Depression Score 5 01/14/2021 Last EPDS Self [...] CDT Legal Sex Female 4:13 AM RESEARCH DIRECTOR Gender Identity Female 03/02/2021 5:45 PM CDT Sexual Orientation Straight 02/28/2020 12 :51 AM CDT documented as of this encounter Plan of Treatment Upcoming Encounters Date Type Department Care Team (Late st Contact Info) Description 12/19/2024 2:00 PM CDT Office Visit [facility] [address] [place] [phone] Lauren Claudio PA-C [address] [place] [address] 12/26/2024 7:30 AM CDT Office Visit [address] [address] Neil Kent MD [address] [place] [address] 04/16/2025 11:00 AM CDT Virtual Visit [facility] [place] [address] [facility] 4th [place] [phone] Meredith Carrera PA-C [address] [place] [address] [phone] documented as of this encounter Visit Diagnoses [...] of this encounter Care Teams Refinery Operator Coking Relationship Specialty Start Date End Date Esha Grimm PA-C [address] [place] [phone] PCP - General Family Medicine 05/04/23 Diana Desir, [facility] [address] [place] [address] Pharmacist Pharmacist 04/17/21 Rain Galaviz PA-C [address] [place] [address] [place] [address] Physician Plywood And Veneer Repairer Dermatology 04/28/21 Tavia Wyatt MD [address] [place] [address] [address] [place] [id number] Dermatology 07/14/21 Erica Farrell APRN PAYROLL SUPERVISOR [address] [place] 869685 Nurse Practitioner Cardiovascular Disease 09/09/21 Rich Barrett MD [address] [place] 533425 Physician Ophthalmology 01/21/22 Neil Kent MD [address] [place] [address] 485935 Dermatology 02/24/22 Diana Desir, [facility] [address] [place], [place] 330296 Assigned [place] Pharmacist 04/07/22 Livan Sharif MD [address] [place] [address] Cardiovascular Disease 05/14/22 Catherine Cm MD [address] [place] 834815 Cardiovascular Disease 07/21/22 Valery Veronica, PA-C 909 [place] [address] Physician Plywood And Veneer Repairer Dermatology 07/21/22 Brea Quinn APRN PAYROLL SUPERVISOR [address] [place] [address] Nurse Practitioner Dermatology 09/21/22 Radha Lomeli APRN PAYROLL SUPERVISOR [address] [place] [address] Assigned Heart and Vascular Provider 05/28/23 11/29/24 Jelena David OD [address] [place] [address] MD Ophthalmology 06/15/23 Esha Grimm PA-C [address] [place] [phone] Assigned PCP 07/16/23 Valery Veronica PA-C [address] [place] [address] 997935 Physician Plywood And Veneer Repairer Dermatology 09/19/23 Rey Tay MD [address] [place] [address] 241335 MD Gastroenterology 09/20/23 Rocky Zepeda DO [address] [place] [address] 293385 Physician Gastroenterology 09/20/23 Philip Dumont MD [address] [place] [address] 764565 Physician Ophthalmology 09/22/23 Meredith Carrera PA-C [address] [place] [address] 633765 Assigned Gastroenterology Provider 11/01/23 Neil Kent MD [address] [place] [address] Dermatology 11/02/23 [place] [address] [place] [address] Neurological Surgery 12/26/23 Audrey Waite PA-C [address] [place] [address] Physician Plywood And Veneer Repairer Dermatology 02/28/24 Valery Veronica PA-C [id number] [place] [address] Physician Plywood And Veneer Repairer Dermatology 04/10/24 Herminia Hatch MD [facility]5 [place], [place] [phone] Assigned Rheumatology Provider 07/02/24 Jelena David OD [address] [place] [address] Ophthalmology 08/30/24 [place] [address] [place] [address] Assigned Neuroscience Provider 09/30/24 Maru Man PA-C [address] [place] [address] Physician Plywood And Veneer Repairer Dermatology 10/03/24 Maru Man PA-C [address] [place] [address] Physician Plywood And Veneer Repairer Dermatology 10/22/24 Jelena David OD [address] [facility] [place] [address] Assigned Surgical Provider 10/31/24 Fabiano Correa NP [address] [place] [place] [address] Assigned Heart and Vascular Provider 11/30/24 documented as of this encounter
--- OUTSIDE RECORDS SUMMARY | 2024-12-17 21:44 | XMS_ITS | Encounter Summary ---
Author Organization [place] Address [address] [place] [address] Care Team Providers Care Visual Developer Name Role Phone Diana Desir [facility] Unavailable Rain Galaviz PA-C Unavailable Tavia Wyatt MD Unavailable [phone] Erica Farrell APRN HEAD CHOPPER Unavailable Rich Barrett MD Unavailable [phone] Neil Kent MD Unavailable Diana Desir [facility] Unavailable Livan Sharif MD Unavailable Catherine Cm MD Unavailable + Valery Veronica PA-C Unavailable Brea Quinn CHIEF CLIENT OFFICER HEAD CHOPPER Unavailable [phone] Brea Quinn CHIEF CLIENT OFFICER HEAD CHOPPER Unavailable Jose Francisco Johnson MD Unavailable Alfonso Renteria MD Unavailable [phone] Esha Grimm PA-C Primary Care Provider [phone] Radha Lomeli APRN HEAD CHOPPER Unavailable Jelena David OD Unavailable [phone] Pao Joseph RN Unavailable Unavailable Esha Grimm PA-C Unavailable [phone] Valery Veronica PA-C Unavailable Rey Tay [...] Team (Late st Contact Info) Description 08/10/2023 [facility] [address] [place] [address] Esha Grimm PA-C [address] [place] [address] Social History Tobacco Use Types [...] 0 06/20/2023 [facility] - Occupational Stress Questionnaire [...] CDT Legal Sex Female 4:13 AM MUSIC MANAGER Gender Identity Female 03/02/2021 5:45 PM CDT Sexual Orientation Straight 02/28/2020 12 :51 AM CDT documented as of this encounter Miscellaneous Notes * Telephone Encounter - Asiya Reddy RN - 08/10/2023 11:40 AM MUSIC MANAGER Esha- see SecureAutht message below. Patient did call to see if E-Visit would be addressed today. No immediate concern at this time. Advised UC if needed sooner. Asiya Reddy, RN C MANAGER documented in this encounter Plan of Treatment Upcoming Encounters Date Type Department Care Team (Late st Contact Info) Description 12/19/2024 2:00 PM CDT Office Visit [facility] [address] [place] [phone] Lauren Claudio PA-C [address] [place] [address] 12/26/2024 7:30 AM CDT Office Visit [facility] [address] [phone] Neil Kent MD [address] [place] [address] 598045 04/16/2025 11:00 AM CDT Virtual Visit [facility] Gastro[facility]ology Clinic [address] 4th [place] [phone] Meredith Carrera PA-C [address] [place] [address] documented as of this encounter Visit Diagnoses [...] Depression Total Score: 4 06/20/20 8:40 AM MUSIC MANAGER documented as of this encounter Care Teams Visual Developer Relationship Specialty Start Date End Date Esha Grimm PA-C [address] [place] [phone] PCP - General Family Medicine 05/04/23 Diana Desir, [facility] [address] [place] [address] Pharmacist Pharmacist 04/17/21 Rain Galaviz PA-C [address] [place] [address] [address] [facility] [facility] [place] [address] Physician Binding Printer Dermatology 04/28/21 Tavia Wyatt MD [address] [place] [address] [address] [facility] [place] [address] Dermatology 07/14/21 Erica Farrell APRN HEAD CHOPPER [address] [place] [address] Nurse Practitioner Cardiovascular Disease 09/09/21 Rich Barrett MD [address] [place] 688765 Physician Ophthalmology 01/21/22 Neil Kent MD 500 [place], [place] 211905 Dermatology 02/24/22 Diana Desir, [facility] [address] [place], [place] 038[address] Assigned MTM Pharmacist 04/07/22 Livan Sharif MD [address] [place], [place] 062825 Cardiovascular Disease 05/14/22 Catherine Cm MD [address] [place], [place] 556225 Cardiovascular Disease 07/21/22 Valery Veronica, PA-C [address] [place] [address] 528075 Physician Binding Printer Dermatology 07/21/22 Brea Quinn APRN HEAD CHOPPER 500 [place], [place] 497125 Nurse Practitioner Dermatology 09/21/22 Brea Quinn APRN HEAD CHOPPER 6401 [place], [place] 873032 Assigned Surgical Provider 10/09/22 05/01/24 [place] [address] [facility] 300 [place], [place] 677787 Assigned Musculoskeletal Provider 10/09/22 05/01/24 Alfonso Renteria MD 5775 [facility] 200 [place], [place] 160496 Assigned Neuroscience Provider 04/02/23 09/29/24 Radha Lomeli APRN HEAD CHOPPER [address] [facility] [address] [place], [place] 346825 Assigned Heart and Vascular Provider 05/28/23 11/29/24 Jelena David OD [address] [facility] [place] [address] MD Ophthalmology 06/15/23 Pao Joseph, VJ Personal Advocate & Liaison (PAL) Nurse 08/01/23 11/07/23 Esha Grimm PA-C [address] [place] [phone] Assigned PCP 07/16/23 Valery Veronica PA-C [address] [place] [address] 184745 Physician Binding Printer Dermatology 09/19/23 Rey Tay MD [address] [place] [address] 330445 MD Gastroenterology 09/20/23 Rocky Zepeda DO [address] [place] [address] 035875 Physician Gastroenterology 09/20/23 Philip Dumont MD [address] [place] [address] 011925 Physician Ophthalmology 09/22/23 Meredith Carrera PA-C [address] [place] [address] 941155 Assigned Gastroenterology Provider 11/01/23 Neil Kent MD [address] [place] [address] MD Dermatology 11/02/23 [place] [address] [place] [address] Neurological Surgery 12/26/23 Audrey Waite PA-C 500 [place] [address] Physician Binding Printer Dermatology 02/28/24 Valery Veronica PA-C 660725 [place], [place] [address] Physician Binding Printer Dermatology 04/10/24 Herminia Hatch MD [address] [place] [address] [id number] Assigned Rheumatology Provider 07/02/24 Jelena David OD [address] [place] [address] [place] [address] Ophthalmology 08/30/24 [place] [address] [place] [address] Assigned Neuroscience Provider 09/30/24 Maru Man PA-C [address] [place] [address] Physician Binding Printer Dermatology 10/03/24 Maru Man PA-C [address] [place] [address] Physician Binding Printer Dermatology 10/22/24 Jelena David OD [address] [facility] [place] [address] Assigned Surgical Provider 10/31/24 Fabiano Correa NP [address] [place] [address] Assigned Heart and Vascular Provider 11/30/24 documented as of this encounter
--- OUTSIDE RECORDS SUMMARY | 2024-12-17 21:44 | XMS_ITS | Encounter Summary ---
Author Organization [place] Address [address] [place] [address] Care Team Providers Care Fingerprint Classifier Name Role Phone Diana Desir [facility] Unavailable Rain Galaviz PA-C Unavailable Tavia Wyatt MD Unavailable [phone] Erica Farrell APRN ECONOMICS CONSULTANT Unavailable Rich Barrett MD Unavailable [phone] Neil Kent MD Unavailable Diana Desir [facility] Unavailable Livan Sharif MD Unavailable Catherine Cm MD Unavailable + Valery Veronica PA-C Unavailable Brea Quinn HUNTER TRAPPER ECONOMICS CONSULTANT Unavailable Brea Quinn HUNTER TRAPPER ECONOMICS CONSULTANT Unavailable [phone] Jose Francisco Johnson MD Unavailable Alfonso Renteria MD Unavailable [phone] Esha Grimm PA-C Primary Care Provider [phone] Lomeli, Radha E HUNTER TRAPPER ECONOMICS CONSULTANT Unavailable [phone] Jelena David OD Unavailable Pao Joseph RN Unavailable Unavailable Esha Grimm Adam PA-C Unavailable [phone] Valery Veronica PA-C Unavailable [phone] Rey Tay MD Unavailable Rocky Zepeda DO Unavailable Philip Dumont MD Unavailable Meredith Carrera PA-C Unavailable Neil Kent MD Unavailable Juan Pablo Emmanuel MD Unavailable Audrey Waite PA-C Unavailable Valery Veronica PA-C Unavailable Herminia Hatch MD Unavailable Jelena David OD Unavailable [phone] Juan Pablo Emmanuel MD Unavailable Maru Man PA-C Unavailable Maru Man PA-C Unavailable Jelena David OD Unavailable Fabiano Correa NP Unavailable Encounter Details Date Type Department Care Team (Late st Contact Info) Description 08/31/2023 [facility] Medical Advice [facility] [address] [facility] [address] [place] [address] Amalia Reyes, VJ Social History [...] Answer Date Recorded PHQ-2 Score 0 06/20/2023 [facility] - Occupational Stress Questionnaire Answer [...] PM CDT Legal Sex Female 4:13 AM SPEEDER OPERATOR Gender Identity Female 03/02/2021 5:45 PM CDT Sexual Orientation Straight 02/28/2020 12 :51 AM CDT documented as of this encounter Plan of Treatment Upcoming Encounters Date Type Department Care Team (Late st Contact Info) Description 12/19/2024 2:00 PM CDT Office Visit [facility] [address] [place] [phone] Lauren Claudio PA-C [address] [place] [address] 12/26/2024 7:30 AM CDT Office Visit [facility] [address] [phone] Neil Kent MD 500 [place] [address] 04/16/2025 11:00 AM CDT Virtual Visit [facility] Gastroenterology Clinic [address] 4th [place] [phone] Meredith Carrera PA-C [address] [place] [address] 539865 documented as of this encounter Visit Diagnoses [...] Total Score: 4 06/20/20 23 8:40 AM SPEEDER OPERATOR documented as of this encounter Care Teams Fingerprint Classifier Relationship Specialty Start Date End Date Esha Grimm PA-C [address] [place] [phone] PCP - General Family Medicine 05/04/23 Diana Desir, [facility] [place] [address] Pharmacist Pharmacist 04/17/21 Rain Galaviz PA-C [address] [place] [address] [address] [place] [place] [address] Physician Traffic Division Commanding Officer Dermatology 04/28/21 Tavia Wyatt MD [address] [place] [address] DR [address] L[place] [address] Dermatology 07/14/21 Erica Farrell APRN ECONOMICS CONSULTANT [address] [place] [address] Nurse Practitioner Cardiovascular Disease 09/09/21 Rich Barrett MD [address] [place] [address] Physician Ophthalmology 01/21/22 Neil Kent MD 500 [place] [address] Dermatology 02/24/22 [facility] [address] [place] [address] Assigned MTM Pharmacist 04/07/22 Livan Sharif MD [address] [place] [address] Cardiovascular Disease 05/14/22 Catherine Cm MD [address] [place] [address] Cardiovascular Disease 07/21/22 Valery Veronica PA-C 909 [place] [address] Physician Traffic Division Commanding Officer Dermatology 07/21/22 Brea Quinn APRN ECONOMICS CONSULTANT 500 [place] [address] Nurse Practitioner Dermatology 09/21/22 Brea Quinn APRN ECONOMICS CONSULTANT 6401 [place] [address] Assigned Surgical Provider 10/09/22 05/01/24 [place] [address] [address] [facility] 300 [place] [address] Assigned Musculoskeletal Provider 10/09/22 05/01/24 Alfonso Renteria MD 5775 [facility] 200 [place] [address] Assigned Neuroscience Provider 04/02/23 09/29/24 Radha Lomeli APRN ECONOMICS CONSULTANT [address] [facility] [address] [place] [address] Assigned Heart and Vascular Provider 05/28/23 11/29/24 Jelena David OD [address] [facility] [address] Ophthalmology 06/15/23 Pao Joseph, VJ Personal Advocate & Liaison (PAL) Nurse 08/01/23 11/07/23 Esha Grimm PA-C [address] [place] [phone] Assigned PCP 07/16/23 Valery Veronica PA-C [address] [place] [address] 000415 Physician Traffic Division Commanding Officer Dermatology 09/19/23 Rey Tay MD [address] [place] [address] 487475 MD Gastroenterology 09/20/23 Rocky Zepeda DO [address] [place] [address] 519495 Physician Gastroenterology 09/20/23 Philip Dumont MD [address] [place] [address] 171775 Physician Ophthalmology 09/22/23 Meredith Carrera PA-C [address] [place] [address] 844285 Assigned Gastroenterology Provider 11/01/23 Neil Kent MD [address] [address] Dermatology 11/02/23 [place] [address] [place] [address] Neurological Surgery 12/26/23 Audrey Waite PA-C [address] [place] [address], [place] [address] Physician Traffic Division Commanding Officer Dermatology 02/28/24 Valery Veronica PA-C 619237 [address], [place] [address] Physician Traffic Division Commanding Officer Dermatology 04/10/24 Herminia Hatch MD [address] [place] [address] Assigned Rheumatology Provider 07/02/24 [place] [address] [place] [address] [place] [address] Ophthalmology 08/30/24 [place] [address] [place] [address] Assigned Neuroscience Provider 09/30/24 Maru Man PA-C [address] [place] [address] Physician Traffic Division Commanding Officer Dermatology 10/03/24 Maru Man PA-C [address] [place] [address] Physician Traffic Division Commanding Officer Dermatology 10/22/24 Jelena David OD [address] [place] [address] [place] [address] Assigned Surgical Provider 10/31/24 Fabiano [place] NP [address] [place] [address] Assigned Heart and Vascular Provider 11/30/24 documented as of this encounter
--- OUTSIDE RECORDS SUMMARY | 2024-12-17 21:44 | XMS_ITS | Encounter Summary ---
Author Organization [place] Address [address] [place] [address] Care Team Providers Care Fern Gatherer Name Role Phone Diana Desir [facility] Unavailable [phone] Rain Galaviz PA-C Unavailable Tavia Wyatt MD Unavailable [phone] Erica Farrell APRN CAR CONDITIONER Unavailable Rich Barrett MD Unavailable [phone] Neil Kent MD Unavailable Diana Desir [facility] Unavailable Livan Sharif MD Unavailable Catherine Cm MD Unavailable + Valery Veronica PA-C Unavailable Brea Quinn SPORTS STATISTICIAN CAR CONDITIONER Unavailable Brea Quinn SPORTS STATISTICIAN CAR CONDITIONER Unavailable Jose Francisco Johnson MD Unavailable Alfonso Renteria MD Unavailable [phone] Esha Grimm PA-C Primary Care Provider Radha Lomeli APRN CAR CONDITIONER Unavailable Jelena David OD Unavailable Pao Joseph RN Unavailable Unavailable Esha Grimm Adam PA-C Unavailable [phone] Valery Veronica PA-C Unavailable Rey Tay MD Unavailable Rocky Zepeda DO Unavailable Philip Dumont MD Unavailable Meredith Carrera PA-C Unavailable Neil Kent MD Unavailable Juan Pablo Emmanuel MD Unavailable Audrey Waite PA-C Unavailable Valery Veronica PA-C Unavailable [phone] Herminia Hatch MD Unavailable Jelena David OD Unavailable [phone] Juan Pablo Emmanuel MD Unavailable Maru Man PA-C Unavailable Maru Man PA-C Unavailable Jelena David OD Unavailable [phone] Fabiano Correa NP Unavailable [phone] Encounter Details Date Type Department Care Team (Late st Contact Info) Description 08/25/2023 [facility] [place] [place] Medical Advice [facility] [address] [place] [address] Marija Polanco, RN Social History [...] 0 06/20/2023 [facility] [...] CDT Legal Sex Female 4:13 AM POWER GENERATION EQUIPMENT REPAIRER Gender Identity Female 03/02/2021 5:45 PM CDT Sexual Orientation Straight 02/28/2020 12 :51 AM CDT documented as of this encounter Plan of Treatment Upcoming Encounters Date Type Department Care Team (Late st Contact Info) Description 12/19/2024 2:00 PM CDT Office Visit [facility] [id number] [place] [phone] Lauren Claudio PA-C [id number] [place] [address] 235[address] 12/26/2024 7:30 AM CDT Office Visit [facility] [address] [phone] Neil Kent MD 500 [place] [address] 04/16/2025 11:00 AM CDT Virtual Visit [facility] [place] [address] [place] [address] 4th [place] [phone] Meredith Carrera PA-C [address] [place] [address] 979255 documented as of this encounter Visit Diagnoses [...] Total Score: 4 06/20/20 23 8:40 AM POWER GENERATION EQUIPMENT REPAIRER documented as of this encounter Care Teams Fern Gatherer Relationship Specialty Start Date End Date Esha Grimm PA-C [address] [place] [phone] PCP - General Family Medicine 05/04/23 Diana Desir, [facility] [address] [place] [address]25 Pharmacist Pharmacist 04/17/21 Rain Galaviz PA-C [address] [place] [address] [address] [place] [address] Physician Life Cycle Assessment Analyst Dermatology 04/28/21 Tavia Wyatt MD [address] [place] [address] [address] [place] [address] Dermatology 07/14/21 Erica Farrell APRN CAR CONDITIONER [address] [place] [address] Nurse Practitioner Cardiovascular Disease 09/09/21 Rich Barrett MD [address] [place] [address] Physician Ophthalmology 01/21/22 Neil Kent MD 500 [place] [address] Dermatology 02/24/22 [facility] [address] [place] [address] Assigned MTM Pharmacist 04/07/22 Livan Sharif MD [address] [place] [address] Cardiovascular Disease 05/14/22 Catherine Cm MD [address] [place] [address] Cardiovascular Disease 07/21/22 Valery Veronica PA-C 909 [place] [address] Physician Life Cycle Assessment Analyst Dermatology 07/21/22 Brea Quinn APRN CAR CONDITIONER 500 [place] [address] Nurse Practitioner Dermatology 09/21/22 Brea Quinn APRN CAR CONDITIONER 6401 [place] [address] Assigned Surgical Provider 10/09/22 05/01/24 [place] [address] [facility] 300 [place] [address] Assigned Musculoskeletal Provider 10/09/22 05/01/24 Alfonso Renteria MD 5775 [facility] 200 [place] [address] Assigned Neuroscience Provider 04/02/23 09/29/24 Radha Lomeli APRN CAR CONDITIONER [address] [facility] [address] [place] [address] Assigned Heart and Vascular Provider 05/28/23 11/29/24 Jelena David OD [address] [place] [address] Ophthalmology 06/15/23 Pao Joseph, VJ Personal Advocate & Liaison (PAL) Nurse 1/22/24 4/29/24 Esha Grimm PA-C [address] [place] [phone] Assigned PCP 07/16/23 Valery Veronica PA-C [address] [place] [address] 939215 Physician Life Cycle Assessment Analyst Dermatology 09/19/23 Rey Tay MD [address] [place] [address] 829115 MD Gastroenterology 09/20/23 Rocky Zepeda DO [address] [place] [address] 386395 Physician Gastroenterology 09/20/23 Philip Dumont MD [address] [place] [address] 930865 Physician Ophthalmology 09/22/23 Meredith Carrera PA-C [address] [place] [address] 386425 Assigned Gastroenterology Provider 11/01/23 Neil Kent MD [address] [place] [address] Dermatology 11/02/23 [place] [address] [place] [address] Neurological Surgery 12/26/23 Audrey Waite PA-C 500 [place] [address] Physician Life Cycle Assessment Analyst Dermatology 02/28/24 Valery Veronica PA-C [address] [place] [address] Physician Life Cycle Assessment Analyst Dermatology 04/10/24 Herminia Hatch MD [address] [place] [address] Assigned Rheumatology Provider 07/02/24 Jelena David OD [address] [place] [address] [place] [address] Ophthalmology 08/30/24 [place] [address] [place] [address] Assigned Neuroscience Provider 09/30/24 Maru Man PA-C [address] [place] [address] Physician Life Cycle Assessment Analyst Dermatology 10/03/24 Maru Man PA-C [address] [place] [address] Physician Life Cycle Assessment Analyst Dermatology 10/22/24 Jelena David OD [address] [place] [address] [place] [address] Assigned Surgical Provider 10/31/24 Fabiano Correa NP [address] [place] [place] [address] Assigned Heart and Vascular Provider 11/30/24 documented as of this encounter
--- OUTSIDE RECORDS SUMMARY | 2024-12-17 21:44 | XMS_ITS | Encounter Summary ---
Author Organization [place] Address [address] [place] [address] Care Team Providers Care Senior Storage Administrator Name Role Phone Diana Desir [facility] Unavailable Rain Galaviz PA-C Unavailable Tavia Wyatt MD Unavailable [phone] Erica Farrell APRN CAKE WINDER Unavailable Rich Barrett MD Unavailable [phone] Neil Kent MD Unavailable Diana Desir [facility] Unavailable Livan Sharif MD Unavailable Catherine Cm MD Unavailable + Valery Veronica PA-C Unavailable Brea Quinn MOLD OPERATOR CAKE WINDER Unavailable Brea Quinn MOLD OPERATOR CAKE WINDER Unavailable Jose Francisco Johnson MD Unavailable Alfonso Renteria MD Unavailable [phone] Esha Grimm PA-C Primary Care Provider Radha Lomeli APRN CAKE WINDER Unavailable Jelena David OD Unavailable Pao Joseph RN Unavailable Unavailable Esha Grimm Adam PA-C Unavailable [phone] Valery Veronica PA-C Unavailable [phone] Rey Tay MD Unavailable Rocky Zepeda DO Unavailable Philip Dumont MD Unavailable [phone] Meredith Carrera PA-C Unavailable Neil Kent MD Unavailable Juan Pablo Emmanuel MD Unavailable Audrey Waite PA-C Unavailable Valery Veronica PA-C Unavailable [phone] Herminia Hatch MD Unavailable Jelena David OD Unavailable Juan Pablo Emmanuel MD Unavailable Maru Man PA-C Unavailable Maru Man PA-C Unavailable Jelena David OD Unavailable [phone] Fabiano Correa NP Unavailable [phone] Encounter Details Date Type Department Care Team (Late st Contact Info) Description 08/25/2023 [facility] [place] Medical Advice [facility] [address] [place] [address] Marija Polanco, RN Social History [...] exercise at this level? 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 Gender Identity Female 03/02/2021 5:45 PM CDT Sexual Orientation Straight 02/28/2020 12 :51 AM CDT documented as of this encounter Plan of Treatment Upcoming Encounters Date Type Department Care Team (Late st Contact Info) Description 12/19/2024 2:00 PM CDT Office Visit [facility] [address] [place] [phone] Lauren Claudio PA-C [address] [place] [address] 12/26/2024 7:30 AM CDT Office Visit [facility] [address] [phone] Neil Kent MD 500 [place] [address] 04/16/2025 11:00 AM CDT Virtual Visit [facility] [place] [address] [place] [address] 4th [place] [phone] Meredith Carrera PA-C [address] [place] [address] 468635 documented as of this encounter Visit Diagnoses [...] Total Score: 4 06/20/20 23 8:40 AM STOVE BOTTOM WORKER documented as of this encounter Care Teams Senior Storage Administrator Relationship Specialty Start Date End Date Esha Grimm PA-C [address] [place] [phone] PCP - General Family Medicine 05/04/23 Diana Desir, [facility] [address] [place] [address] Pharmacist Pharmacist 04/17/21 Rain Galaviz PA-C [address] [place] [address] [address] [place] [address] Physician Amalgamator Dermatology 04/28/21 Tavia Wyatt MD [address] [place] [address] [address] [place] [address] Dermatology 07/14/21 Erica Farrell APRN CAKE WINDER [address] [place] 348245 Nurse Practitioner Cardiovascular Disease 09/09/21 Rich Barrett MD [address] [place] 120925 Physician Ophthalmology 01/21/22 Neil Kent MD 500 [place] [address] Dermatology 02/24/22 [facility] [address] [place] [address] Assigned MTM Pharmacist 04/07/22 Livan Sharif MD [address] [place] [address] Cardiovascular Disease 05/14/22 Catherine Cm MD [address] [place] [address] Cardiovascular Disease 07/21/22 Valery Veronica PA-C 909 [place] [address] Physician Amalgamator Dermatology 07/21/22 Brea Quinn APRN CAKE WINDER 500 [place] [address] Nurse Practitioner Dermatology 09/21/22 Brea Quinn APRN CAKE WINDER 6401 [place] [address] Assigned Surgical Provider 10/09/22 05/01/24 [place] [address] [facility] 300 [place] [address] Assigned Musculoskeletal Provider 10/09/22 05/01/24 Alfonso Renteria MD 5775 [facility] 200 [place] [address] Assigned Neuroscience Provider 04/02/23 09/29/24 Radha Lomeli APRN CAKE WINDER 6405 [facility] [address] [place] [address] Assigned Heart and Vascular Provider 05/28/23 11/29/24 Jelena David OD [address] [facility] [place] [address] Ophthalmology 06/15/23 Pao Joseph, VJ Personal Advocate & Liaison (PAL) Nurse 1/22/24 4/29/24 Esha Grimm PA-C [address] [place] [phone] Assigned PCP 07/16/23 Valery Veronica PA-C [address] [place] [address] 359675 Physician Amalgamator Dermatology 09/19/23 Rey Tay MD [address] [place] [address] 319485 MD Gastroenterology 09/20/23 Rocky Zepeda DO [address] [place] [address] 721415 Physician Gastroenterology 09/20/23 Philip Dumont MD [address] [place] [address] 869505 Physician Ophthalmology 09/22/23 Meredith Carrera PA-C [address] [place] [address] 976945 Assigned Gastroenterology Provider 11/01/23 Neil Kent MD [address] [place] [address] Dermatology 11/02/23 [place] [address] [place] [address] Neurological Surgery 12/26/23 Audrey Waite PA-C 500 [place] [address] Physician Amalgamator Dermatology 02/28/24 Valery Veronica PA-C [address] [place] [address] Physician Amalgamator Dermatology 04/10/24 Herminia Hatch MD [address] [place] [address] Assigned Rheumatology Provider 07/02/24 Jelena David OD [address] [place] [address] [place] [address] Ophthalmology 08/30/24 [place] [address] [place] [address] Assigned Neuroscience Provider 09/30/24 Maru Man PA-C [address] [place] [address] Physician Amalgamator Dermatology 10/03/24 Maru Man PA-C [address] [place] [address] Physician Amalgamator Dermatology 10/22/24 Jelena David OD [address] [place] [address] [place] [address] Assigned Surgical Provider 10/31/24 Fabiano Correa NP [address] [address] Assigned Heart and Vascular Provider 11/30/24 documented as of this encounter
--- OUTSIDE RECORDS SUMMARY | 2024-12-17 21:44 | XMS_ITS | Encounter Summary ---
Author Organization [place] Address [address] [place] [address] Care Team Providers Care Grails Web Application Developer Name Role Phone Diana Desir [facility] Unavailable Rain Galaviz PA-C Unavailable Tavia Wyatt MD Unavailable [phone] Erica Farrell APRN PUBLICITY DIRECTOR Unavailable Rich Barrett MD Unavailable [phone] Neil Kent MD Unavailable Diana Desir [facility] Unavailable Livan Sharif MD Unavailable Catherine Cm MD Unavailable + Valery Veronica PA-C Unavailable Brea Quinn GRINDER SET UP OPERATOR CENTERLESS PUBLICITY DIRECTOR Unavailable Brea Quinn GRINDER SET UP OPERATOR CENTERLESS PUBLICITY DIRECTOR Unavailable Jose Francisco Johnson MD Unavailable Alfonso Renteria MD Unavailable [phone] Esha Grimm PA-C Primary Care Provider Radha Lomeli APRN PUBLICITY DIRECTOR Unavailable Jelena David OD Unavailable [phone] Pao Joseph RN Unavailable Unavailable AlfaJesusEsha M PA-C Unavailable [phone] Valery Veronica PA-C Unavailable [phone] Rey Tay MD Unavailable Rocky Zepeda DO [...] Team (Late st Contact Info) Description 08/25/2023 [facility] [place] Medical Advice [address] [address] Diana Desir, [facility] [address] [place], [place] [phone] Social History Tobacco Use Types Packs/Day Years [...] you attend [facility] or [facility] services? 1 to 4 [...] PHQ-2 Score 0 06/20/2023 [facility] - [facility]ational [...] exercise at this level? 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 Gender Identity Female 03/02/2021 5:45 PM CDT Sexual Orientation Straight 02/28/2020 12 :51 AM CDT documented as of this encounter Plan of Treatment Upcoming Encounters Date Type Department Care Team (Late st Contact Info) Description 12/19/2024 2:00 PM CDT Office Visit [facility] [address] [place] [phone] Lauren Claudio, PAUcheC [address] [place] [address] 12/26/2024 7:30 AM CDT Office Visit [facility] [address] [phone] Neil Kent MD [address] [place] [address] 678365 04/16/2025 11:00 AM CDT Virtual Visit [facility] [place] [address] [place] [address] 4th [place] [phone] Meredith Carrera PA-C [address] [place] [address] 038845 documented as of this encounter Visit Diagnoses [...] Score: 4 06/20/20 23 8:40 AM SUPERVISOR INCISING documented as of this encounter Care Teams Grails Web Application Developer Relationship Specialty Start Date End Date Esha Grimm PA-C [address] [place] [phone] PCP - General Family Medicine 05/04/23 Diana Desir, [facility] [address] [place] [address] Pharmacist Pharmacist 04/17/21 Rain Galaviz PA-C [address] [place] [address] [address] [place] [address] Physician Door Frame Builder Dermatology 04/28/21 Tavia Wyatt MD [address] [place] [address] [address] [place] [address] Dermatology 07/14/21 Erica Farrell APRN PUBLICITY DIRECTOR [address] [place] [address] Nurse Practitioner Cardiovascular Disease 09/09/21 Rich Barrett MD [address] [place] [address] Physician Ophthalmology 01/21/22 Neil Kent MD 500 [place], [place] 836445 Dermatology 02/24/22 Diana Desir, [facility] [address] [place] [address] Assigned MTM Pharmacist 04/07/22 Livan Sharif MD [address] [place] 415465 Cardiovascular Disease 05/14/22 Catherine Cm MD [address] [facility] [address] [place] [address] Cardiovascular Disease 07/21/22 Valery Veronica, PAUcheC 909 [place], [place] 599045 Physician Door Frame Builder Dermatology 07/21/22 Brea Quinn APRN PUBLICITY DIRECTOR 500 [place], [place] 765035 Nurse Practitioner Dermatology 09/21/22 Brea Quinn APRN PUBLICITY DIRECTOR 6401 [facility] [place] 788992 Assigned Surgical Provider 10/09/22 05/01/24 [place] [address] [address] [facility] 300 [place] [address] Assigned Musculoskeletal Provider 10/09/22 05/01/24 Alfonso Renteria MD 5775 [facility] 200 [place], [place] 564146 Assigned Neuroscience Provider 04/02/23 09/29/24 Radha Lomeli APRN PUBLICITY DIRECTOR [address] [place] 7615500 [place] 082805 Assigned Heart and Vascular Provider 05/28/23 11/29/24 Jelena David OD [address] [facility] [place] [id number] MD Ophthalmology 06/15/23 Pao Joseph, RN Personal Advocate & Liaison (PAL) Nurse 08/01/23 11/07/23 Esha Grimm PA-C [address] [place] [phone] Assigned PCP 07/16/23 Valery Veronica PA-C [address] [place] [address] Physician Door Frame Builder Dermatology 09/19/23 Rey Tay MD [address] [place] [address] 328085 MD Gastroenterology 09/20/23 Rocky Zepeda DO [address] [place] [address] 743595 Physician Gastroenterology 09/20/23 Philip Dumont MD [address] [place] [address] 942675 Physician Ophthalmology 09/22/23 Meredith Carrera PA-C [address] [place] [address] 065245 Assigned Gastroenterology Provider 11/01/23 Neil Kent MD [address] [place] [address] 745560 Dermatology 11/02/23 [place] [address] [place] [address] Neurological Surgery 12/26/23 Audrey Waite PA-C 500 [place] [address] Physician Door Frame Builder Dermatology 02/28/24 Valery Veronica PA-C 381618 [address] [address] Physician Door Frame Builder Dermatology 04/10/24 Herminia Hatch MD [address] [place] [address] Assigned Rheumatology Provider 07/02/24 Jelena David, SONJA [address] [place] [address] [place] [address] Ophthalmology 08/30/24 [place] [address] [place] [address] Assigned Neuroscience Provider 09/30/24 Maru Man PA-C [address] [place] [address] Physician Door Frame Builder Dermatology 10/03/24 Maru Man PA-C [address] [place] [address] 056[address] Physician Door Frame Builder Dermatology 10/22/24 Jelena David, SONJA [address] [place] [address] [place] [address] Assigned Surgical Provider 10/31/24 Fabiano Correa, PRODUCT MANUFACTURING PROFESSIONAL [address] [place] [address] Assigned Heart and Vascular Provider 11/30/24 documented as of this encounter
--- OUTSIDE RECORDS SUMMARY | 2024-12-17 21:44 | XMS_ITS | Encounter Summary ---
Author Organization [place] Address [address] [place] [address] Care Team Providers Care Judo Teacher Name Role Phone Diana Desir [facility] Unavailable Rain Galaviz PA-C Unavailable [phone] Tavia Wyatt MD Unavailable [phone] Erica Farrell APRN OPERATING ROOM TECH Unavailable Rich Barrett MD Unavailable [phone] Neil Kent MD Unavailable Diana Desir [facility] Unavailable Livan Sharif MD Unavailable Catherine Cm MD Unavailable + Valery Veronica PA-C Unavailable Brea Quinn CASH APPLICATION CLERK OPERATING ROOM TECH Unavailable [phone] Brea Quinn CASH APPLICATION CLERK OPERATING ROOM TECH Unavailable Jose Francisco Johnson MD Unavailable Alfonso Renteria MD Unavailable [phone] Esha Grimm PA-C Primary Care Provider Radha Lomeli APRN OPERATING ROOM TECH Unavailable Jelena David OD Unavailable Pao Joseph RN Unavailable Unavailable Esha Grimm Adam PA-C Unavailable [phone] Valery Veronica PA-C Unavailable Rey Tay MD Unavailable Rocky Zepeda DO Unavailable Philip Dumont MD Unavailable Meredith Carrera PA-C Unavailable [phone] Neil Kent MD Unavailable Juan Pablo Emmanuel MD Unavailable Audrey Waite PA-C Unavailable Valery Veronica PA-C Unavailable [phone] Herminia Hatch MD Unavailable Jelena David OD Unavailable [phone] Juan Pablo Emmanuel MD Unavailable Maru Man PA-C Unavailable Maru Man PA-C Unavailable Jelena David OD Unavailable Fabiano Correa NP Unavailable [phone] Encounter Details Date Type Department Care Team (Late st Contact Info) Description 08/11/2023 [facility] Medical Advice [address] [address] Pao Joseph, RN Social History [...] 0 06/20/2023 [facility] - Occupational Stress Questionnaire Answer Date [...] exercise at this level? 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 [id number] [place] [phone] Lauren Claudio PA-C [address] [place] [address] 12/26/2024 7:30 AM CDT Office Visit [facility] [address] [phone] Neil Kent MD 500 [place] [address] 04/16/2025 11:00 AM CDT Virtual Visit [facility] Gastroenterology [facility] [address] [place] [address] 4th [place] [phone] Meredith Carrera PA-C [address] [place] [address] 025435 documented as of this encounter Visit Diagnoses [...] Total Score: 4 06/20/20 23 8:40 AM ALUMINA REFINERY OPERATOR documented as of this encounter Care Teams Judo Teacher Relationship Specialty Start Date End Date Esha Grimm PA-C [address] [place] [phone] PCP - General Family Medicine 05/04/23 Diana Desir, [facility] 3033 [place] [address] Pharmacist Pharmacist 04/17/21 Rain Galaviz PA-C [address] [place] [address] [address] [place] [place] [address] Physician Call Or Contact Centre Team Leader Dermatology 04/28/21 Tavia Wyatt MD [address] [place] [address] [address] Lara [place] [address] Dermatology 07/14/21 Erica Farrell APRN OPERATING ROOM TECH [address] [place] [address] Nurse Practitioner Cardiovascular Disease 09/09/21 Rich Barrett MD [address] [place] [address] Physician Ophthalmology 01/21/22 Neil Kent MD 500 [place] [address] Dermatology 02/24/22 [facility] [address] [place] [address] Assigned MTM Pharmacist 04/07/22 Livan Sharif MD [address] [place] [address] Cardiovascular Disease 05/14/22 Catherine Cm MD [address] [place] [address] Cardiovascular Disease 07/21/22 Valery Veronica PA-C 909 [place] [address] Physician Call Or Contact Centre Team Leader Dermatology 07/21/22 Brea Quinn APRN OPERATING ROOM TECH 500 [place] [address] Nurse Practitioner Dermatology 09/21/22 Brea Quinn APRN OPERATING ROOM TECH 6401 [place] [address] Assigned Surgical Provider 10/09/22 05/01/24 [place] [address] [address] [facility] 300 [place] [address] Assigned Musculoskeletal Provider 10/09/22 05/01/24 Alfonso Renteria MD 5775 [facility] 200 [place] [address] Assigned Neuroscience Provider 04/02/23 09/29/24 Radha Lomeli APRN OPERATING ROOM TECH 6405 [facility] [address] [place] [address] Assigned Heart and Vascular Provider 05/28/23 11/29/24 Jelena David OD [address] [place] [address] Ophthalmology 06/15/23 Pao Joseph, RN Personal Advocate & Liaison (PAL) Nurse 08/01/23 11/07/23 Esha Grimm PA-C [address] [place] [phone] Assigned PCP 07/16/23 Valery Veronica PA-C [address] [place] [address] 327435 Physician Call Or Contact Centre Team Leader Dermatology 09/19/23 Rey Tay MD [address] [place] [address] 530875 MD Gastroenterology 09/20/23 Rocky Zepeda DO [address] [place] [address] 477325 Physician Gastroenterology 09/20/23 Philip Dumont MD [address] [place] [address] 880885 Physician Ophthalmology 09/22/23 Meredith Carrera PA-C [address] [place] [address] 537655 Assigned Gastroenterology Provider 11/01/23 Neil Kent MD [address] [address] Dermatology 11/02/23 [place] [address] [place] [address] Neurological Surgery 12/26/23 Audrey Waite PA-C [address] [place] [address] Physician Call Or Contact Centre Team Leader Dermatology 02/28/24 Valery Veronica PA-C 617253 [place] [address] Physician Call Or Contact Centre Team Leader Dermatology 04/10/24 Herminia Hatch MD [address] [place] [address] Assigned Rheumatology Provider 07/02/24 Jelena David OD [address] [place] [address] [place] [address] Ophthalmology 08/30/24 [place] [address] [place] [address] Assigned Neuroscience Provider 09/30/24 Maru Man PA-C [address] [place] [address] Physician Call Or Contact Centre Team Leader Dermatology 10/03/24 Maru Man PA-C [address] [place] [address] Physician Call Or Contact Centre Team Leader Dermatology 10/22/24 Jelena David OD [address] [place] [address] [place] [address] Assigned Surgical Provider 10/31/24 Fabiano Correa NP [address] [place] [address] Assigned Heart and Vascular Provider 11/30/24 documented as of this encounter
--- OUTSIDE RECORDS SUMMARY | 2024-12-17 21:44 | XMS_ITS | Encounter Summary ---
Author Organization [place] Address [address] [place] [address] Care Team Providers Care Library Cataloging Technician Name Role Phone Diana Desir Stanislav [facility] Unavailable Rain Galaviz PA-C Unavailable Tavia Wyatt MD Unavailable Erica Farrell APRN DIRECTOR OF RETAIL ANALYTICS Unavailable Rich Barrett MD Unavailable [phone] Neil Kent MD Unavailable ThangKendrickDiana Stanislav [facility] Unavailable [phone] Livan Sharif MD Unavailable Catherine Cm MD Unavailable + Valery Veronica-C Unavailable [phone] Brea Quinn APRN DIRECTOR OF RETAIL ANALYTICS Unavailable Esha Grimm PA-C Primary Care Provider Radha Lomeli APRN DIRECTOR OF RETAIL ANALYTICS Unavailable Jelena David OD Unavailable [phone] Esha Grimm PA-C Unavailable [phone] Valery Veronica PA-C Unavailable Rey Tay MD Unavailable ZepedaRocky Unavailable Philip Dumont MD Unavailable LoreMeredith mayers PA-C Unavailable Neil Kent MD Unavailable Juan Pablo Emmanuel MD Unavailable Audrey Waite PA-C Unavailable Valery Veronica PA-C Unavailable [phone] Herminia Hatch MD Unavailable Jelena David OD Unavailable Juan Pablo Emmanuel MD Unavailable [phone] Maru Man PA-C Unavailable Maru Man PA-C Unavailable Jelena David OD Unavailable Fabiano Correa NP Unavailable Reason for Visit * Reason Onset Date Comments Call Back 10/09/2024 Heart Monitor Encounter Details Date Type Department Care Team (Late st Contact Info) Description 10/09/2024 Telephone [facility] Heart [facility] [address] [facility] [address] [place] [address] Livan Sharif MD [address] [facility] [address] [place] [phone] Call Back (Heart Monitor) Social History Tobacco [...] 1 02/07/2024 [facility] - [...] exercise at this level? 20 min 05/07/2024 [place] Depression Scale Answer Date Recorded [place] [...] PM CDT Legal Sex Female 4:13 AM JOURNALISTS AND OTHER WRITERS Gender Identity Female 03/02/2021 5:45 PM CDT Sexual Orientation Straight 02/28/2020 12 :51 AM CDT documented as of this encounter Miscellaneous Notes * Telephone Encounter - Carley Myles RN - 10/10/2024 4:51 PM CDT Sent message to pt via [employer]-Mobile regarding monitor and follow up plan. Carley [...] further we can certainly offer. Thanks! Rodrigo Correa, REGISTERED NURSE, DIRECTOR OF RETAIL ANALYTICS * Telephone Encounter - Mary Stapleton - 10/09/2024 1:57 PM CDT M [facility] Call Center Phone Message May a detailed [...] 12/19/2024 2:00 PM CDT Office [facility] [address] [place] [phone] Lauren Claudio PA-C [address] [place] [address] 12/26/2024 7:30 AM CDT Office Visit [facility] [address] [phone] Neil [place] MD [address] [place] [address] 812445 04/16/2025 11:00 AM CDT Virtual Visit [facility] [place] 909 [facility] 4th [place] [phone] Meredith Carrera PA-C [address] [place] [address] documented as of this encounter Visit Diagnoses [...] as of this encounter Care Teams Library Cataloging Technician Relationship Specialty Start Date End Date Esha Grimm PA-C [address] [place] [address] PCP - General Family Medicine 05/04/23 Diana Desir, [facility] [place] [address] Pharmacist Pharmacist 04/17/21 aRin Galaviz PA-C [address] [place] [address] DR [place] [facility] [place] [address] Physician Poultry Farmer Egg Dermatology 04/28/21 Tavia Wyatt MD [address] [place] [address] [address] [facility] [place] [address] Dermatology 07/14/21 Erica Farrell APRN DIRECTOR OF RETAIL ANALYTICS [address] [place] 676445 Nurse Practitioner Cardiovascular Disease 09/09/21 Rich Barrett MD [address] [place] 506435 Physician Ophthalmology 01/21/22 Neil Kent MD 500 [place], [place] 339825 Dermatology 02/24/22 [facility] [address] [place] [address] 511246 Assigned [place] Pharmacist 04/07/22 Livan Sharif MD [address] [place] [address] [place] 0[address]95 Cardiovascular Disease 05/14/22 Catherine Cm MD [address] [place] [address] [place] [address] Cardiovascular Disease 07/21/22 Valery Veronica, PA-C [address] [place] [address] 298195 Physician Poultry Farmer Egg Dermatology 07/21/22 Brea Quinn APRN DIRECTOR OF RETAIL ANALYTICS [address] [place] [place] [address] Nurse Practitioner Dermatology 09/21/22 Radha Lomeli APRN DIRECTOR OF RETAIL ANALYTICS [address] [place] [address] Assigned Heart and Vascular Provider 05/28/23 11/29/24 Jelena David OD [address] [facility] [place] [address] MD Ophthalmology 06/15/23 Esha Grimm PA-C [address] [place] [phone] Assigned PCP 07/16/23 Valery Veronica PA-C [address] [place] [address] Physician Poultry Farmer Egg Dermatology 09/19/23 Rey Tay MD [address] [place] [address] 775285 Gastroenterology 09/20/23 Rocky Zepeda DO [address] [place] [address] 376735 Physician Gastroenterology 09/20/23 Philip Dumont MD [address] [place] [address] 156705 Physician Ophthalmology 09/22/23 Meredith Carrera PA-C [address] [place] [address] 030385 Assigned Gastroenterology Provider 11/01/23 Neil Kent MD [address] [place] [address] Dermatology 11/02/23 [place] [address] [place] [address] Neurological Surgery 12/26/23 Audrey Waite PA-C 500 [place] [address] Physician Poultry Farmer Egg Dermatology 02/28/24 aVlery Veronica PA-C 449061 [place], [place] [address] Physician Poultry Farmer Egg Dermatology 04/10/24 Herminia Hatch MD [address] [place] [address] 53961125 Assigned Rheumatology Provider 07/02/24 Jelena David OD [address] [facility] [place] [address] Ophthalmology 08/30/24 [place] [address] [place] [address] Assigned Neuroscience Provider 09/30/24 Maru Man PA-C [address] [place] [address] Physician Poultry Farmer Egg Dermatology 10/03/24 Maru Man PA-C [address] [place] [address] Physician Poultry Farmer Egg Dermatology 10/22/24 Jelena David OD [address] [facility] [place] [address] Assigned Surgical Provider 10/31/24 Fabiano Correa NP [address] [place] [address] Assigned Heart and Vascular Provider 11/30/24 documented as of this encounter
--- OUTSIDE RECORDS SUMMARY | 2024-12-17 21:44 | XMS_ITS | Encounter Summary ---
Author Organization [place] Address [address] [place] [address] Care Team Providers Care Principal Technical Specialist Name Role Phone Diana Desir [facility] Unavailable [phone] Rain Galaviz PA-C Unavailable Tavia Wyatt MD Unavailable [phone] Erica Farrell APRN BAKED AND GRAPHITE INSPECTOR Unavailable Rich Barrett MD Unavailable [phone] Neil Kent MD Unavailable Diana Desir [facility] Unavailable Livan Sharif MD Unavailable Catherine Cm MD Unavailable + Valery Veronica PA-C Unavailable Brea Quinn BOX INSPECTOR BAKED AND GRAPHITE INSPECTOR Unavailable [phone] Brea Quinn BOX INSPECTOR BAKED AND GRAPHITE INSPECTOR Unavailable Jose Francisco Johnson MD Unavailable Alfonso Renteria MD Unavailable [phone] Esha Grimm PA-C Primary Care Provider Radha Lomeli APRN BAKED AND GRAPHITE INSPECTOR Unavailable Jelena David OD Unavailable [phone] Pao Joseph RN Unavailable Unavailable AlfaJesusEsha M PA-C Unavailable [phone] Valery Veronica PA-C Unavailable Rey Tay [...] PA-C Unavailable Jelena David OD Unavailable [phone] Fabiano Correa NP Unavailable Encounter Details Date Type Department Care Team (Late st Contact Info) Description 08/04/2023 [facility] Medical Advice [address] [address] Diana Desir, [facility] 3033 [place], [place] [phone] Social History Tobacco Use Types Packs/Day Years [...] often do you attend [facility] or [facility] services? 1 to 4 [...] Score 0 06/20/2023 [facility] exercise at this level? 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 Gender Identity Female 03/02/2021 5:45 PM CDT Sexual Orientation Straight 02/28/2020 12 :51 AM CDT documented as of this encounter Plan of Treatment Upcoming Encounters Date Type Department Care Team (Late st Contact Info) Description 12/19/2024 2:00 PM CDT Office Visit [facility] [address] [place] [phone] Lauren Claudio, PAUcheC [address] [place] [address] 12/26/2024 7:30 AM CDT Office Visit [facility] [address] [phone] Neil Kent MD [address] [place] [address] 582645 04/16/2025 11:00 AM CDT Virtual Visit [facility] [place] [address] [place] [address] 4th [place] [phone] Meredith Carrera PA-C [address] [place] [address] 889125 documented as of this encounter Visit Diagnoses [...] Score: 4 06/20/20 23 8:40 AM ENGRAVER TENDER documented as of this encounter Care Teams Principal Technical Specialist Relationship Specialty Start Date End Date Esha Grimm PA-C [address] [place] [phone] PCP - General Family Medicine 05/04/23 Diana Desir, [facility] [address] [place] [address] Pharmacist Pharmacist 04/17/21 Rain Galaviz PA-C [address] [place] [address] [address] [place] [address] Physician Final Armature Tester Dermatology 04/28/21 Tavia Wyatt MD [address] [place] [address] [address] [place] [address] Dermatology 07/14/21 Erica Farrell APRN BAKED AND GRAPHITE INSPECTOR [address] [place] [address] Nurse Practitioner Cardiovascular Disease 09/09/21 Rich Barrett MD [address] [place] [address] Physician Ophthalmology 01/21/22 Neil Kent MD 500 [place], [place] 889145 Dermatology 02/24/22 Diana Desir, [facility] [address] [place] [address] Assigned MTM Pharmacist 04/07/22 Livan Sharif MD [address] [place] 924735 Cardiovascular Disease 05/14/22 Catherine Cm MD [address] [facility] [address] [place] [address] Cardiovascular Disease 07/21/22 Valery Veronica, PAUcheC 909 [place], [place] 402925 Physician Final Armature Tester Dermatology 07/21/22 Brea Quinn APRN BAKED AND GRAPHITE INSPECTOR 500 [place], [place] 160845 Nurse Practitioner Dermatology 09/21/22 Brea Quinn APRN BAKED AND GRAPHITE INSPECTOR 6401 [facility] [place] 803772 Assigned Surgical Provider 10/09/22 05/01/24 [place] [address] [address] [facility] 300 [place] [address] Assigned Musculoskeletal Provider 10/09/22 05/01/24 Alfonso Renteria MD 5775 [facility] 200 [place], [place] 518046 Assigned Neuroscience Provider 04/02/23 09/29/24 Radha Lomeli APRN BAKED AND GRAPHITE INSPECTOR [address] [place] [phone] [place] 603785 Assigned Heart and Vascular Provider 05/28/23 11/29/24 Jelena David OD 3305 [facility] [place] [id number] MD Ophthalmology 06/15/23 Pao Joseph, RN Personal Advocate & Liaison (PAL) Nurse 08/01/23 11/07/23 Esha Grimm PA-C [address] [place] [phone] Assigned PCP 07/16/23 Valery Veronica PA-C [address] [place] [address] Physician Final Armature Tester Dermatology 09/19/23 Rey Tay MD [address] [place] [address] 837685 MD Gastroenterology 09/20/23 Rocky Zepeda DO [address] [place] [address] 077285 Physician Gastroenterology 09/20/23 Philip Dumont MD [address] [place] [address] 344115 Physician Ophthalmology 09/22/23 Meredith Carrera PA-C [address] [place] [address] 310355 Assigned Gastroenterology Provider 11/01/23 Neil Kent MD [address] [place] [address] 852150 Dermatology 11/02/23 [place] [address] [place] [address] Neurological Surgery 12/26/23 Audrey Waite PA-C 500 [place] [address] Physician Final Armature Tester Dermatology 02/28/24 Valery Veronica PA-C 014627 [place] [address] Physician Final Armature Tester Dermatology 04/10/24 Herminia Hatch MD [address] [place] [place] [address] Assigned Rheumatology Provider 07/02/24 Jelena David, SONJA [address] [place] [address] [place] [address] Ophthalmology 08/30/24 [place] [address] [address] Assigned Neuroscience Provider 09/30/24 Maru Man PA-C [address] [place] [address] Physician Final Armature Tester Dermatology 10/03/24 Maru Man PA-C [address] [place] [address] Physician Final Armature Tester Dermatology 10/22/24 Jelena David, SONJA [address] [place] [address] [place] [address] Assigned Surgical Provider 10/31/24 Fabiano Correa, FLOORING MACHINE FEEDER [address] [place] [address] Assigned Heart and Vascular Provider 11/30/24 documented as of this encounter
--- OUTSIDE RECORDS SUMMARY | 2024-12-17 21:44 | XMS_ITS | Encounter Summary ---
Author Organization [place] Address [address] [place] [address] Care Team Providers Care Amusement Park Worker Name Role Phone Diana Desir [facility] Unavailable [phone] Rain GalavizC Unavailable Tavia Wyatt MD Unavailable Erica Farrell APRN HERBARIUM WORKER Unavailable Rich Barrett MD Unavailable [phone] Neil Kent MD Unavailable DesirKendrickDiana Stanislav [facility] Unavailable [phone] Livan Sharif MD Unavailable Catherine Cm MD Unavailable + Valery Veronica-C Unavailable Brea Quinn SHEEP FARM WORKER HERBARIUM WORKER Unavailable Alfonso Renteria MD Unavailable [phone] Esha GrimmC Primary Care Provider [phone] Radha Lomeli APRN HERBARIUM WORKER Unavailable Jelena David OD Unavailable Alfa, Esha M PA-C Unavailable [phone] Valery Veronica PA-C Unavailable [phone] Rey Tay MD Unavailable Rocky Zepeda DO Unavailable Philip Dumont MD Unavailable Meredith Carrera PA-C Unavailable [phone] Neil Kent MD Unavailable Juan Pablo Emmanuel MD Unavailable Audrey Waite PA-C Unavailable Valery Veronica PA-C Unavailable [phone] Herminia Hatch MD Unavailable Jelena David OD Unavailable Juan Pablo Emmanuel MD Unavailable Maru Man PA-C Unavailable Maru Man PA-C Unavailable Jelena David OD Unavailable Fabiano Correa NP Unavailable Encounter Details Date Type Department Care Team (Late st Contact Info) Description 06/20/2024 MyC Medical Advice [facility] Heart [address] [address] Carley Myles, RN Social History [...] Score 1 02/07/2024 [facility] - Occupational Stress Questionnaire Answer [...] exercise at this level? 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 Gender Identity Female 03/02/2021 5:45 PM CDT Sexual Orientation Straight 02/28/2020 12 :51 AM CDT documented as of this encounter Plan of Treatment Upcoming Encounters Date Type Department Care Team (Late st Contact Info) Description 12/19/2024 2:00 PM CDT Office Visit [facility] [address] [place] [phone] Lauren Claudio PA-C [address] [place] [address] 12/26/2024 7:30 AM CDT Office Visit [address] [place] [address] Neil Kent MD [address] [place] [address] 04/16/2025 11:00 AM CDT Virtual Visit [facility] G[facility]ology Clinic [address] 4th [place] [phone] Meredith Carrera PA-C [address] [place] [address] documented as of this encounter Visit Diagnoses [...] documented as of this encounter Care Teams Amusement Park Worker Relationship Specialty Start Date End Date Esha Grimm PA-C [address] [place] [phone] PCP - General Family Medicine 05/04/23 Diana Desir, [facility] [address] [place] [address] Pharmacist Pharmacist 04/17/21 Rain Galaviz PA-C [address] [place] [address] [address] [place], [place] [phone] Physician Single Pass Soil Stabilizer Operator Dermatology 04/28/21 Tavia Wyatt MD [address] [place] [address] [place] [address] Dermatology 07/14/21 Erica Farrell APRN HERBARIUM WORKER [address] [place] [address]65 Nurse Practitioner Cardiovascular Disease 09/09/21 Rich Barrett MD [address] [place] 6[address]245 Physician Ophthalmology 01/21/22 Neil Kent MD [address] [place] [address] 345565 Dermatology 02/24/22 [facility] [address] [place], [place] 671376 Assigned [place] Pharmacist 04/07/22 Livan Sharif MD [address] [place] 3[address]35 Cardiovascular Disease 05/14/22 Catherine Cm MD [address] [place] 16[address]55 Cardiovascular Disease 07/21/22 Valery Veronica, PA-C [address] [place] [address] 428825 Physician Single Pass Soil Stabilizer Operator Dermatology 07/21/22 Brea Quinn, SHEEP FARM WORKER HERBARIUM WORKER [address] [place] [address] Nurse Practitioner Dermatology 09/21/22 Alfonso Renteria MD [address] [facility] [address] [place], [place] [address]36 Assigned Neuroscience Provider 04/02/23 09/29/24 Radha Lomeli, SHEEP FARM WORKER HERBARIUM WORKER [address] [id number] [place], [place] 849585 Assigned Heart and Vascular Provider 05/28/23 11/29/24 Jelena David OD [address] [facility] [address] [place] [id number] Ophthalmology 06/15/23 Esha Grimm PA-C [address] [place] [phone] Assigned PCP 07/16/23 Valery Veronica PA-C [address] [place] [address] 355815 Physician Single Pass Soil Stabilizer Operator Dermatology 09/19/23 Rey Tay MD [address] [place] [address] 297995 Gastroenterology 09/20/23 Rocky Zepeda DO [address] [place] [address] 461375 Physician Gastroenterology 09/20/23 Philip Dumont MD [address] [place] [address] Physician Ophthalmology 09/22/23 Meredith Carrera PA-C [address] [place] [address] Assigned Gastroenterology Provider 11/01/23 Neil Kent MD [address] [address] Dermatology 11/02/23 [place] [address] [place], [place] [phone] Neurological Surgery 12/26/23 Audrey Waite PA-C [address] [place] [address] Physician Single Pass Soil Stabilizer Operator Dermatology 02/28/24 Valery Veronica PA-C 6[address]89 [place], [place] 275469 Physician Single Pass Soil Stabilizer Operator Dermatology 04/10/24 Herminia Hatch MD [address] [place] [address] [phone] Assigned Rheumatology Provider 07/02/24 Jelena David OD [address] [place] [address] [place] [address] Ophthalmology 08/30/24 [place] [address] [place] [address] Assigned Neuroscience Provider 09/30/24 Maru Man PA-C [address] [place] [address] Physician Single Pass Soil Stabilizer Operator Dermatology 10/03/24 Maru Man PA-C [address] [place] [address] Physician Single Pass Soil Stabilizer Operator Dermatology 10/22/24 Jelena David OD [address] [facility] [place] [address] Assigned Surgical Provider 10/31/24 Fabiano Correa NP [address] [place] [address] Assigned Heart and Vascular Provider 11/30/24 documented as of this encounter
--- OUTSIDE RECORDS SUMMARY | 2024-12-17 21:44 | XMS_ITS | Encounter Summary ---
Author Organization [place] Address [address] [place] [address] Care Team Providers Care Incident Manager Name Role Phone Diana Desir Stanislav [facility] Unavailable Rain Galaviz PA-C Unavailable Tavia Wyatt MD Unavailable Erica Farrell APRN VIDEO GAME ENGINEER Unavailable Rich Barrett MD Unavailable [phone] Neil Kent MD Unavailable ThangKendrickDiana Stanislav [facility] Unavailable [phone] Livan Sharif MD Unavailable Catherine Cm MD Unavailable + Valery Veronica-C Unavailable Brea Quinn APRN VIDEO GAME ENGINEER Unavailable [phone] Esha Grimm PA-C Primary Care Provider Radha Lomeli APRN VIDEO GAME ENGINEER Unavailable Jelena David OD Unavailable Esha Grimm PA-C Unavailable [phone] Valery Veronica PA-C Unavailable Rey Tay MD Unavailable DuaneRocky Unavailable Philip Dumont MD Unavailable [phone] PinoMeredith paez PA-C Unavailable [phone] Neil Kent MD Unavailable Juan Pablo Emmanuel MD Unavailable Audrey Waite PA-C Unavailable [phone] Valery Veronica PA-C Unavailable Herminia Hatch MD Unavailable Jelena David OD Unavailable [phone] Juan Pablo Emmanuel MD Unavailable [phone] Maru Man-C Unavailable [phone] Maru Man-C Unavailable Jelena David OD Unavailable Fabiano Correa NP Unavailable [phone] Encounter Details Date Type Department Care Team (Late st Contact Info) Description 10/10/2024 [facility] Medical Advice [facility] Heart [address] [address] Carley Myles RN Social History [...] Recorded PHQ-2 Score 1 02/07/2024 [facility] - Occupational Stress [...] exercise at this level? 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 Gender Identity Female 03/02/2021 5:45 PM CDT Sexual Orientation Straight 02/28/2020 12 :51 AM CDT documented as of this encounter Plan of Treatment Upcoming Encounters Date Type Department Care Team (Late st Contact Info) Description 12/19/2024 2:00 PM CDT Office Visit [facility] [address] [place] [phone] Lauren Claudio PA-C [address] [place] [address] 12/26/2024 7:30 AM CDT Office Visit [address] [address] Neil Kent MD [address] [place] [address] 04/16/2025 11:00 AM CDT Virtual Visit [facility] Gastroenterology [facility] [place] [address] [place] [address] 4th [place] [phone] Meredith Carrera PA-C [address] [place] [address] documented as of this encounter Visit Diagnoses [...] documented as of this encounter Care Teams Incident Manager Relationship Specialty Start Date End Date Esha Grimm PA-C [address] [place] [address] PCP - General Family Medicine 05/04/23 Diana Desir, [facility] [address] [place] [address] Pharmacist Pharmacist 04/17/21 Rain Galaviz PA-C [address] [place] [address] [address] [place] [address] Physician Physician Industrial Dermatology 04/28/21 Tavia Wyatt MD [address] [place] [address] [address] [place] [address] [phone] Dermatology 07/14/21 Erica Farrell APRN VIDEO GAME ENGINEER [address] [address] Nurse Practitioner Cardiovascular Disease 09/09/21 Rich Barrett MD [address] 875285 Physician Ophthalmology 01/21/22 Neil Kent MD 500 [place], [place] 412015 Dermatology 02/24/22 Diana Desir, [facility] [address] [place] [address] Assigned MTM Pharmacist 04/07/22 Livan Sharif MD [address] [address] Cardiovascular Disease 05/14/22 Catherine Cm MD [address] [address] Cardiovascular Disease 07/21/22 Valery Veronica, PA-C [address] [place] [address] 677155 Physician Physician Industrial Dermatology 07/21/22 Brea Quinn APRN VIDEO GAME ENGINEER [address] [place] [address] [phone] Nurse Practitioner Dermatology 09/21/22 Armani Radha ARLENE Stovall VIDEO GAME ENGINEER [address] [facility] [address] [place], [place] 128325 Assigned Heart and Vascular Provider 05/28/23 11/29/24 Jelena David OD [address] [facility] [address] [place] [id number] MD Ophthalmology 06/15/23 Esha Grimm PA-C [address] [place] [address] Assigned PCP 07/16/23 Valery Veronica PA-C [address] [place] [address] 348545 Physician Physician Industrial Dermatology 09/19/23 Rey Tay MD [address] [place] [address] 408295 Gastroenterology 09/20/23 Rocky Zepeda DO [address] [place] [address] 303185 Physician Gastroenterology 09/20/23 Philip Dumont MD [address] [place] [address] 813075 Physician Ophthalmology 09/22/23 Meredith Carrera PA-C [address] [place] [address] 877865 Assigned Gastroenterology Provider 11/01/23 Neil Kent MD [address] [place] [address] Dermatology 11/02/23 [place] [address] [place] [address] Neurological Surgery 12/26/23 Audrey Waite PA-C [address] [place] [address] Physician Physician Industrial Dermatology 02/28/24 Valery Veronica PA-C [address] [place] [address] Physician Physician Industrial Dermatology 04/10/24 Herminia Hatch MD [address] [place] [address] [phone] Assigned Rheumatology Provider 07/02/24 Jelena David OD [address] [place] [address] [place] [address] Ophthalmology 08/30/24 [place] [address] [place] [address] Assigned Neuroscience Provider 09/30/24 Maur Man PA-C [address] [place] [address] Physician Physician Industrial Dermatology 10/03/24 Maru Man PA-C [address] [place] [address] Physician Physician Industrial Dermatology 10/22/24 Jelena David OD [address] [facility] [place] [address] Assigned Surgical Provider 10/31/24 Fabiano Correa NP [address] [address] Assigned Heart and Vascular Provider 11/30/24 documented as of this encounter
--- OUTSIDE RECORDS SUMMARY | 2024-12-17 21:44 | XMS_ITS | Encounter Summary ---
Author Organization [place] Address [address] [place] [address] Care Team Providers Care Slab Lifting Supervisor Name Role Phone Diana Desir [facility] Unavailable [phone] Rain GalavizC Unavailable Tavia Wyatt MD Unavailable Erica Farrell APRN PHYSICAL THERAPIST TECHNICIAN Unavailable Rich Barrett MD Unavailable [phone] Neil Kent MD Unavailable DesirKendrickDiana Stanislav [facility] Unavailable [phone] Livan Sharif MD Unavailable Catherine Cm MD Unavailable + Valery Veronica-C Unavailable Brea Quinn OFFICE TECHNICIAN PHYSICAL THERAPIST TECHNICIAN Unavailable [phone] Alfonso Renteria MD Unavailable [phone] Esha GrimmC Primary Care Provider [phone] Radha Lomeli APRN PHYSICAL THERAPIST TECHNICIAN Unavailable Jelena David OD Unavailable Alfa, Esha M PA-C Unavailable [phone] Valery Veronica PA-C Unavailable Rey Tay MD Unavailable Rocky Zepeda DO Unavailable Philip Dumont MD Unavailable [phone] Meredith Carrera-C Unavailable Neil Kent MD Unavailable Juan Pablo Emmanuel MD Unavailable Audrey Waite PA-C Unavailable Valery Veronica PA-C Unavailable Herminia Hatch MD Unavailable Jelena David OD Unavailable [phone] Juan Pablo Emmanuel MD Unavailable Maru Man PA-C Unavailable Maru Man PA-C Unavailable Jelena David OD Unavailable Fabiano Correa NP Unavailable Encounter Details Date Type Department Care Team (Late st Contact Info) Description 09/07/2024 MyC Medical Advice [facility] Gastro[facility]ology Clinic [address] [place] [address] Meredith Carrera PA-C [address] [place] [address] Social History Tobacco Use Types Packs/Day [...] Answer Date Recorded PHQ-2 Score 1 02/07/2024 [facility] [...] exercise at this level? 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 Gender Identity Female 03/02/2021 5:45 PM CDT Sexual Orientation Straight 02/28/2020 12 :51 AM CDT documented as of this encounter Plan of Treatment Upcoming Encounters Date Type Department Care Team (Late st Contact Info) Description 12/19/2024 2:00 PM CDT Office Visit [facility] [address] [place] [phone] Lauren Claudio PA-C [address] [place] [address] 12/26/2024 7:30 AM CDT Office Visit [facility] [place] [address] [phone] Neil Kent MD [address] [place] [address] 969065 04/16/2025 11:00 AM CDT Virtual Visit [facility] [address] 4th [place] [phone] Meredith Carrera PA-C [address] [place] [address] 371375 documented as of this encounter Visit Diagnoses [...] documented as of this encounter Care Teams Slab Lifting Supervisor Relationship Specialty Start Date End Date Esha Grimm PA-C [address] [place] [address] PCP - General Family Medicine 05/04/23 Diana Desir, [facility] [address] [place] [address] Pharmacist Pharmacist 04/17/21 Rain Galaviz PA-C [address] [place] [address] [address] [place], [place] [address] Physician Aeronautical Project Engineer Dermatology 04/28/21 Tavia Wyatt MD [address] [place] [address] [address] [place] [address] Dermatology 07/14/21 Erica Farrell APRN PHYSICAL THERAPIST TECHNICIAN [address] [place] 123625 Nurse Practitioner Cardiovascular Disease 09/09/21 Rich Barrett MD [address] [place] [address]365 Physician Ophthalmology 01/21/22 Neil Kent MD 500 [place], [place] 448495 Dermatology 02/24/22 Diana Desir, [facility] [address] [place], [place] 750986 Assigned MTM Pharmacist 04/07/22 Livan Sharif MD [address] [place] [address] Cardiovascular Disease 05/14/22 Catherine Cm MD [address] [place] [address] Cardiovascular Disease 07/21/22 Valery Veronica PA-C [address] [place] [address] Physician Aeronautical Project Engineer Dermatology 07/21/22 Brea Quinn APRN PHYSICAL THERAPIST TECHNICIAN [address] [place] [address] Nurse Practitioner Dermatology 09/21/22 Alfonso Renteria MD [address] [facility] [address] [place], [place] 346316 Assigned Neuroscience Provider 04/02/23 09/29/24 Radha Lomeli APRN PHYSICAL THERAPIST TECHNICIAN [address] [facility] [address] [place], [place] 686225 Assigned Heart and Vascular Provider 05/28/23 11/29/24 Jelena David OD [facility] [facility] [address] Ophthalmology 06/15/23 Esha Grimm PA-C [address] [place] [phone] Assigned PCP 07/16/23 Valery Veronica PA-C [address] [place] [address] Physician Aeronautical Project Engineer Dermatology 09/19/23 Rey Tay MD [address] [place] [address] Gastroenterology 09/20/23 Rocky Zepeda DO [address] [place] [address] Physician Gastroenterology 09/20/23 Philip Dumont MD [address] [place] [address] Physician Ophthalmology 09/22/23 Merdeith Carrera PA-C [address] [place] [address] Assigned Gastroenterology Provider 11/01/23 Neil Kent MD [address] [place] [address] MD Dermatology 11/02/23 [place] [address] [address] Neurological Surgery 12/26/23 Audrey Waite PA-C [address] [place] [address] Physician Aeronautical Project Engineer Dermatology 02/28/24 Valery Veronica PA-C [address] [place] [address] Physician Aeronautical Project Engineer Dermatology 04/10/24 Herminia Hatch MD [address] [place] [address] [phone] Assigned Rheumatology Provider 07/02/24 [place] [address] [place] [address] [place] [address] Ophthalmology 08/30/24 [place] [address] [place] [address] Assigned Neuroscience Provider 09/30/24 Mrau Man PA-C [address] [place] [address] Physician Aeronautical Project Engineer Dermatology 10/03/24 Maru Man PA-C [address] [place] [address] Physician Aeronautical Project Engineer Dermatology 10/22/24 Jelena David OD [address] [facility] [place] [address] Assigned Surgical Provider 10/31/24 Fabiano [place]rea NP [address] [place] [address] Assigned Heart and Vascular Provider 11/30/24 documented as of this encounter
--- OUTSIDE RECORDS SUMMARY | 2024-12-17 21:44 | XMS_ITS | Encounter Summary ---
Author Organization [place] Address [address] [place] [address] 28994 Care Team Providers Care Speedboat Operator Name Role Phone Diana Desir Stanislav [facility] Unavailable Rain Galaviz PA-C Unavailable Tavia Wyatt MD Unavailable Erica Farrell APRN POLE CLIMBER Unavailable Rich Barrett MD Unavailable [phone] Neil Kent MD Unavailable ThangKendrickDiana Stanislav [facility] Unavailable [phone] Livan Sharif MD Unavailable Catherine Cm MD Unavailable + Valery Veronica-C Unavailable Brea Quinn APRN POLE CLIMBER Unavailable Esha Grimm PA-C Primary Care Provider Radha Lomeli APRN POLE CLIMBER Unavailable Jelena David OD Unavailable Esha Grimm PA-C Unavailable [phone] Valery Veronica PA-C Unavailable Rey Tay MD Unavailable DuaneRocky Unavailable Philip Dumont MD Unavailable Meredith Carrera PA-C Unavailable [phone] Neil Kent MD Unavailable Juan Pablo Emmanuel MD Unavailable Audrey Waite PA-C Unavailable Valery Veronica PA-C Unavailable Herminia Hatch MD Unavailable Jelena David OD Unavailable Juan Pablo Emmanuel MD Unavailable Maru Man-C Unavailable Maru Man-C Unavailable Jelena David OD Unavailable Fabiano Correa NP Unavailable [phone] Encounter Details Date Type Department Care Team (Late st Contact Info) Description 10/11/2024 [facility] Medical Advice [address] [address] Diana Desir, [facility] [address] [place], [place] [id number] Social History Tobacco Use Types Packs/Day Years [...] exercise at this level? 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 Gender Identity Female 03/02/2021 5:45 PM CDT Sexual Orientation Straight 02/28/2020 12 :51 AM CDT documented as of this encounter Plan of Treatment Upcoming Encounters Date Type Department Care Team (Late st Contact Info) Description 12/19/2024 2:00 PM CDT Office Visit [facility] [address] [place] [phone] Lauren Claudio PA-C [address] [place] [address] 12/26/2024 7:30 AM CDT Office Visit [facility] [address] [phone] Neil Kent MD 500 [place] [address] 04/16/2025 11:00 AM CDT Virtual Visit [facility] [place] [address] [place] [address] 4th [place] [phone] Meredith Carrera PA-C [address] [place] [address] documented as of this encounter Visit Diagnoses [...] documented as of this encounter Care Teams Speedboat Operator Relationship Specialty Start Date End Date Esha Grimm PA-C [address] [place] [phone] PCP - General Family Medicine 05/04/23 Diana Desir, [facility] [address] [place] [address] Pharmacist Pharmacist 04/17/21 Rain Galaviz PA-C [address] [place] [address] [place]UTSON [address] Physician Clinical Services Assistant Dermatology 04/28/21 Tavia Wyatt MD [address] [place] [address] [facility] [place] [phone] Dermatology 07/14/21 Erica Farrell APRN POLE CLIMBER [address] [place] 7[address] Nurse Practitioner Cardiovascular Disease 09/09/21 Rich Barrett MD [address] [place] 376645 Physician Ophthalmology 01/21/22 Neil Kent MD [address] [place] [address] 907215 Dermatology 02/24/22 [facility] [address] [place], [place] 535996 Assigned [place] Pharmacist 04/07/22 Livan Sharif MD [address] [place] 194155 Cardiovascular Disease 05/14/22 Catherine Cm MD [address] [place] 258445 Cardiovascular Disease 07/21/22 Valery Veronica, PA-C [address] [place] [address] Physician Clinical Services Assistant Dermatology 07/21/22 Brea Quinn, ADULT CARE PROVIDER POLE CLIMBER [address] [place] [address] 842285 Nurse Practitioner Dermatology 09/21/22 Radha Lomeli, ARLENE POLE CLIMBER [address] [place], [place] 903495 Assigned Heart and Vascular Provider 05/28/23 11/29/24 Jelena David OD [address] [facility] [place] [address] MD Ophthalmology 06/15/23 Esha Grimm PA-C [address] [place] [phone] Assigned PCP 07/16/23 Valery Veronica PA-C [address] [place] [address] 678285 Physician Clinical Services Assistant Dermatology 09/19/23 Rey Tay MD [address] [place] [address] 623645 Gastroenterology 09/20/23 Rocky Zepeda DO [address] [place] [address] 457345 Physician Gastroenterology 09/20/23 Philip Dumont MD [address] [place] [address] 109375 Physician Ophthalmology 09/22/23 Meredith Carrera PA-C [address] [place] [address] Assigned Gastroenterology Provider 11/01/23 Neil Kent MD [address] [place] [address] MD Dermatology 11/02/23 [place] [address] [place] [address] Neurological Surgery 12/26/23 Audrey Waite PA-C 500 [place] [address] Physician Clinical Services Assistant Dermatology 02/28/24 Valery Veronica PA-C [address] [place] [address] Physician Clinical Services Assistant Dermatology 04/10/24 Herminia Hatch MD [address] [place] [address] [phone] Assigned Rheumatology Provider 07/02/24 Jelena David OD [address] [place] [address] [place] [address] Ophthalmology 08/30/24 [place] [address] [place] [address] Assigned Neuroscience Provider 09/30/24 Maru Man PA-C [address] [place] [address] Physician Clinical Services Assistant Dermatology 10/03/24 Maru Man PA-C [address] [place] [address] Physician Clinical Services Assistant Dermatology 10/22/24 Jelena David OD [address] [facility] [place] [address] Assigned Surgical Provider 10/31/24 Fabiano Correa NP [address] [place] [address] Assigned Heart and Vascular Provider 11/30/24 documented as of this encounter
--- OUTSIDE RECORDS SUMMARY | 2024-12-17 21:44 | XMS_ITS | Encounter Summary ---
Author Organization [place] Address [address] [place] [address] 26725 Care Team Providers Care Coupon Manifest Clerk Name Role Phone Diana Desir [facility] Unavailable Rain Galaviz PA-C Unavailable Tavia Wyatt MD Unavailable [phone] Erica Farrell APRN OTHER SPORTS OFFICIAL Unavailable Rich Barrett MD Unavailable [phone] Neil Kent MD Unavailable Diana Desir [facility] Unavailable Livan Sharif MD Unavailable Catherine Cm MD Unavailable + Valery Veronica PA-C Unavailable Brea Quinn IMAGING ENGINEER OTHER SPORTS OFFICIAL Unavailable Brea Quinn IMAGING ENGINEER OTHER SPORTS OFFICIAL Unavailable Jose Francisco Jhonson MD Unavailable Sydnie Martinez RN Unavailable Unavailable Alfonso Renteria MD Unavailable [phone] Esha Grimm PA-C Primary Care Provider Radha Lomeli APRN OTHER SPORTS OFFICIAL Unavailable Jelena David OD Unavailable Pao Joseph RN Unavailable Unavailable Esha Grimm Adam PA-C Unavailable [phone] Valery Veronica PA-C Unavailable Rey Tay MD Unavailable Rocky Zepeda DO Unavailable Philip Dumont MD Unavailable Meredith Carrera PA-C Unavailable [phone] Neil Kent MD Unavailable Juan Pablo Emmanuel MD Unavailable Audrey Waite PA-C Unavailable Valery Veronica PA-C Unavailable Herminia Hatch MD Unavailable Jelena David OD Unavailable Juan Pablo Emmanuel MD Unavailable Maru Man PA-C Unavailable Maru Man PA-C Unavailable Jelena David OD Unavailable Fabiano Correa NP Unavailable Encounter Details Date Type Department Care Team (Late st Contact Info) Description 07/29/2023 [facility] Medical Advice [address] [address] Pao Joseph, RN Social History [...] Answer Date Recorded PHQ-2 Score 0 06/20/2023 [facility] [place] of Occupat ional Health - Occupational Stress [...] at this level? 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 [address] [place] [phone] Lauren Claudio PA-C [address] [place] [address] 12/26/2024 7:30 AM CDT Office Visit [facility] [address] [phone] Neil Kent MD 500 [place] [address] 04/16/2025 11:00 AM CDT Virtual Visit [facility] [place] [address] [place] [address] 4th [place] [phone] Meredith Carrrea PA-C [address] [place] [address] 461495 documented as of this encounter Visit Diagnoses [...] Total Score: 4 06/20/20 23 8:40 AM REPEAT PHOTOCOMPOSING MACHINE OPERATOR documented as of this encounter Care Teams Coupon Manifest Clerk Relationship Specialty Start Date End Date Esha Grimm PA-C [address] [place] [phone] PCP - General Family Medicine 05/04/23 Diana Desir, [facility] [address] [place] [address] Pharmacist Pharmacist 04/17/21 Rain Galaviz PA-C [address] [place] [address] [address] [place] [address] Physician Database Software Technician Dermatology 04/28/21 Tavia Wyatt MD [address] [place] [address] [address] [facility] [place] [address] Dermatology 07/14/21 Erica Farrell APRN OTHER SPORTS OFFICIAL [address] [place] 251775 Nurse Practitioner Cardiovascular Disease 09/09/21 Rich Barrett MD [address] [place] 104635 Physician Ophthalmology 01/21/22 Neil Kent MD 500 [place] [address] Dermatology 02/24/22 [facility] [address] [place] [address] Assigned MTM Pharmacist 04/07/22 Livan Sharif MD [address] [place] [address] Cardiovascular Disease 05/14/22 Catherine Cm MD [address] [place] [address] Cardiovascular Disease 07/21/22 Valery Veronica PA-C 909 [place] [address] Physician Database Software Technician Dermatology 07/21/22 Brea Quinn APRN OTHER SPORTS OFFICIAL 500 [place] [address] Nurse Practitioner Dermatology 09/21/22 Brea Quinn APRN OTHER SPORTS OFFICIAL [address] [place] [address] Assigned Surgical Provider 10/09/22 05/01/24 [place] [address] [place] [address] Assigned Musculoskeletal Provider 10/09/22 05/01/24 Sydnie [place] RN Personal Advocate & Liaison (PAL) Family Medicine 03/28/23 07/31/23 Alfonso Renteria MD [address] [facility] 200 [place], [place] 572026 Assigned Neuroscience Provider 04/02/23 09/29/24 Radha Lomeli APRN OTHER SPORTS OFFICIAL [address] [place] [phone] [place] [address] Assigned Heart and Vascular Provider 05/28/23 11/29/24 J[place]ena David OD [address] [facility] [place] [address] MD Ophthalmology 06/15/23 Pao Joseph, RN Personal Advocate & Liaison (PAL) Nurse 08/01/23 11/07/23 Esha Grimm PA-C [address] [place] [phone] Assigned PCP 07/16/23 Valery Veronica PA-C [address] [place] [address] 055455 Physician Database Software Technician Dermatology 09/19/23 Rey Tay MD [address] [place] [address] 935445 MD Gastroenterology 09/20/23 Rocky Zepeda DO [address] [place] [address] 930785 Physician Gastroenterology 09/20/23 Philip Dumont MD [address] [place] [address] 799895 Physician Ophthalmology 09/22/23 Meredith Carrera PA-C [address] [place] [address] 202785 Assigned Gastroenterology Provider 11/01/23 Neil Kent MD [address] [place] [address] 035000 Dermatology 11/02/23 [place] [address] [place] [address] Neurological Surgery 12/26/23 Audrey Waite PA-C 500 [place] [address] Physician Database Software Technician Dermatology 02/28/24 Valery Veronica PA-C [address] [place] [address] Physician Database Software Technician Dermatology 04/10/24 Herminia Hatch MD [address] [place] [address] Assigned Rheumatology Provider 07/02/24 Jelena David, SONJA [address] [place] [address] [place] [address] Ophthalmology 08/30/24 [place] [address] [place] [address] Assigned Neuroscience Provider 09/30/24 Maru Man PA-C [address] [place] [address] Physician Database Software Technician Dermatology 10/03/24 Maru Man PA-C [address] [place] [address] Physician Database Software Technician Dermatology 10/22/24 Jelena David, SONJA [address] [place] [address] [place] [address] Assigned Surgical Provider 10/31/24 Fabiano [place], THERAPIST'S ASSISTANT [address] [place] [address] Assigned Heart and Vascular Provider 11/30/24 documented as of this encounter
--- OUTSIDE RECORDS SUMMARY | 2024-12-17 21:44 | XMS_ITS | Encounter Summary ---
Author Organization [facility] Address [address] [place] [address] 16675 Care Team Providers Care Imaging Account Manager Name Role Phone Diana Desir [facility] Unavailable Rain Galaviz PA-C Unavailable Tavia Wyatt MD Unavailable Erica Farrell APRN REGASIFICATION PLANT OPERATOR Unavailable Rich Barrett MD Unavailable [phone] Neil Kent MD Unavailable Diana Desir [facility] Unavailable Livan Sharif MD Unavailable Catherine Cm MD Unavailable + Valery Veronica PA-C Unavailable Brea Quinn DIE STAMPING PRESS OPERATOR REGASIFICATION PLANT OPERATOR Unavailable [phone] Brea Quinn DIE STAMPING PRESS OPERATOR REGASIFICATION PLANT OPERATOR Unavailable Jose Francisco Johnson MD Unavailable Sydnie Martinez RN Unavailable Unavailable Alfonso Renteria MD Unavailable [phone] Esha Grimm PA-C Primary Care Provider [phone] Radha Lomeli APRN REGASIFICATION PLANT OPERATOR Unavailable Jelena David OD Unavailable [phone] Pao Joseph RN Unavailable Unavailable Esha Grimm PA-C Unavailable [phone] Valery Veronica PA-C Unavailable Rey Tay [...] Team (Late st Contact Info) Description 07/27/2023 [facility] [address] [address] Diana Desir, [facility] [address] [place], [place] [phone] Social History Tobacco Use Types Packs/Day Years [...] you attend [facility] or [facility]? 1 to 4 [...] PHQ-2 Score 0 06/20/2023 [facility] - Occupational Stress Questionnaire Answer Date [...] exercise at this level? 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 Gender Identity Female 03/02/2021 5:45 PM CDT Sexual Orientation Straight 02/28/2020 12 :51 AM CDT documented as of this encounter Plan of Treatment Upcoming Encounters Date Type Department Care Team (Late st Contact Info) Description 12/19/2024 2:00 PM CDT Office Visit [address] [address] Lauren Claudio PA-C [address] [place] [address] 12/26/2024 7:30 AM CDT Office Visit [facility] [address] [phone] Neil Kent MD [address] [place] [address] 588195 04/16/2025 11:00 AM CDT Virtual Visit [facility] [place] [address] [place] [address] 4th [place] [phone] Meredith Carrera PA-C [address] [place] [address] 941965 documented as of this encounter Visit Diagnoses [...] Score: 4 06/20/20 23 8:40 AM AIR BRAKE WORKER documented as of this encounter Care Teams Imaging Account Manager Relationship Specialty Start Date End Date Esha Grimm PA-C [address] [place] [phone] PCP - General Family Medicine 05/04/23 Diana Desir, [facility] [address] [place] [address] Pharmacist Pharmacist 04/17/21 Rain Galaviz PA-C [address] [place] [address] [address] [place] [address] Physician Aquatics Lifeguard Dermatology 04/28/21 Tavia Wyatt MD [address] [place] [address] [place] [address] Dermatology 07/14/21 Erica Farrell APRN REGASIFICATION PLANT OPERATOR [address] [place] [address] Nurse Practitioner Cardiovascular Disease 09/09/21 Rich Barrett MD [address] [place] [address] Physician Ophthalmology 01/21/22 Neil Kent MD 500 [place], [place] 005485 Dermatology 02/24/22 Diana Desir, [facility] [address] [place] [address] Assigned MTM Pharmacist 04/07/22 Livan Sharif MD [address] [facility] [address] [place] 784885 Cardiovascular Disease 05/14/22 Catherine Cm MD [address]405 [facility] [address] [place] 355035 Cardiovascular Disease 07/21/22 Valery Veronica, PA-C 909 [place], [place] 221585 Physician Aquatics Lifeguard Dermatology 07/21/22 Brea Quinn APRN REGASIFICATION PLANT OPERATOR 500 [place], [place] 303685 Nurse Practitioner Dermatology 09/21/22 Brea Quinn APRN REGASIFICATION PLANT OPERATOR 6401 [facility] [place] 216062 Assigned Surgical Provider 10/09/22 05/01/24 [place] [address] [facility] 300 [place], [place] 217357 Assigned Musculoskeletal Provider 10/09/22 05/01/24 Sydnie Martinez RN Personal Advocate & Liaison (PAL) Family Medicine 03/28/23 07/31/23 Alfonso Renteria MD 5775 [facility] 200 [place], [place] 577116 Assigned Neuroscience Provider 04/02/23 09/29/24 Radha Lomeli APRN REGASIFICATION PLANT OPERATOR [address] [place] [place] 9621200 [place] [address] Assigned Heart and Vascular Provider 05/28/23 11/29/24 Jelena David OD [address] [facility] [place] [address] Ophthalmology 06/15/23 Pao Joseph, RN Personal Advocate & Liaison (PAL) Nurse 08/01/23 11/07/23 Esha Grimm PA-C [address] [place] [phone] Assigned PCP 07/16/23 Valery Veronica PA-C [address] [place] [address] 614245 Physician Aquatics Lifeguard Dermatology 09/19/23 Rey Tay MD [address] [place] [address] 413355 MD Gastroenterology 09/20/23 Rocky Zepeda DO [address] [place] [address] 930345 Physician Gastroenterology 09/20/23 Philip Dumont MD [address] [place] [address] 825595 Physician Ophthalmology 09/22/23 Meredith Carrera PA-C [address] [place] [address] 497645 Assigned Gastroenterology Provider 11/01/23 Neil Kent MD [address] [address] Dermatology 11/02/23 [place] [address] [place] [address] Neurological Surgery 12/26/23 Audrey Waite PA-C 500 [place] [address] Physician Aquatics Lifeguard Dermatology 02/28/24 Valery Veronica PA-C 326046 [address], [place] [address] Physician Aquatics Lifeguard Dermatology 04/10/24 Herminia Hatch MD [address] [place] [address] Assigned Rheumatology Provider 07/02/24 Jelena David OD [address] [place] [address] [place] [address] Ophthalmology 08/30/24 [place] [address] [place] [address] Assigned Neuroscience Provider 09/30/24 Maru Man PA-C [address] [place] [address] Physician Aquatics Lifeguard Dermatology 10/03/24 Maru Man PA-C [address] [place] [address] Physician Aquatics Lifeguard Dermatology 10/22/24 Jelena David OD [address] [place] [address] [place] [address] Assigned Surgical Provider 10/31/24 Fabiano Correa NP [address] [place] [address] Assigned Heart and Vascular Provider 11/30/24 documented as of this encounter
--- OUTSIDE RECORDS SUMMARY | 2024-12-17 21:45 | XMS_ITS | Encounter Summary ---
Author Organization [place] Address [address] [place] [address] Care Team Providers Care Screening Technician Name Role Phone Diana Desir [facility] Unavailable Rain GalavizC Unavailable Tavia Wyatt MD Unavailable Erica Farrell APRN GAS APPLIANCE ADJUSTER Unavailable Rich Barrett MD Unavailable [phone] Neil Kent MD Unavailable DesirKendrickDiana Stanislav [facility] Unavailable [phone] Livan Sharif MD Unavailable Catherine Cm MD Unavailable + Valery Veronica-C Unavailable [phone] Brea Quinn DRILL PRESSER GAS APPLIANCE ADJUSTER Unavailable Alfonso Renteria MD Unavailable [phone] Esha GrimmC Primary Care Provider Radha Lomeli APRN GAS APPLIANCE ADJUSTER Unavailable Jelena David OD Unavailable [place], Esha M PA-C Unavailable [phone] Valery Veronica PA-C Unavailable [phone] Rey Tay MD Unavailable Rocky Zepeda DO Unavailable Philip Dumont MD Unavailable Meredith Carrera PA-C Unavailable [phone] Neil Kent MD Unavailable Juan Pablo Emmanuel MD Unavailable Audrey Waite PA-C Unavailable Valery Veronica PA-C Unavailable [phone] Herminia Hatch MD Unavailable Jelena David OD Unavailable Juan Pablo Emmanuel MD Unavailable Maru Man PA-C Unavailable Maru Man PA-C Unavailable Jelena David OD Unavailable [phone] Fabiano Correa NP Unavailable Encounter Details Date Type Department Care Team (Late st Contact Info) Description 06/21/2024 MyC Medical Advice [address] [address] Antonella Eldridge, RN Social History Tobacco Use Types Packs/Day [...] Recorded PHQ-2 Score 1 02/07/2024 [facility] [...] at this level? 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 Gender Identity Female 03/02/2021 5:45 PM CDT Sexual Orientation Straight 02/28/2020 12 :51 AM CDT documented as of this encounter Plan of Treatment Upcoming Encounters Date Type Department Care Team (Late st Contact Info) Description 12/19/2024 2:00 PM CDT Office Visit [facility] [address] [place] [phone] Lauren Claudio PA-C [address] [place] [address] 12/26/2024 7:30 AM CDT Office Visit [address] [place] [phone] Neil Kent MD 500 [place] [address] 04/16/2025 11:00 AM CDT Virtual Visit [facility] [place] 9[address] [facility] 4th [place] [phone] Meredith Carrera PA-C [address] [place] [address] documented as of this encounter Visit Diagnoses [...] documented as of this encounter Care Teams Screening Technician Relationship Specialty Start Date End Date Esha Grimm PA-C [address] [place] [phone] PCP - General Family Medicine 05/04/23 Diana Desir, [facility] [address] [facility] [place] [address] Pharmacist Pharmacist 04/17/21 Rain Galaviz PA-C [address] [place] [address] [place] [address] Physician Clinical Lab Scientist Dermatology 04/28/21 Tavia Wyatt MD [address] [place] [address] ENMA KNUTSON [address] Dermatology 07/14/21 Erica Farrell APRN GAS APPLIANCE ADJUSTER [address] [place] [address] Nurse Practitioner Cardiovascular Disease 09/09/21 Rich Barrett MD [address] [place] [address] Physician Ophthalmology 01/21/22 Neil Kent MD [address] [place] [address] Dermatology 02/24/22 [facility] [address] [place] [address] Assigned [place] Pharmacist 04/07/22 Livan Sharif MD [address] [facility] [place] [address] Cardiovascular Disease 05/14/22 Catherine Cm MD [address] [place] [address] [place] 17[address]15 Cardiovascular Disease 07/21/22 Valery Veronica, PA-C [address] [place] [address] 482995 Physician Clinical Lab Scientist Dermatology 07/21/22 Brea Quinn APRN GAS APPLIANCE ADJUSTER [address] [place] [address] 224455 Nurse Practitioner Dermatology 09/21/22 Alfonso Renteria MD [address] [facility] [address] 200 [place], [place] 720066 Assigned Neuroscience Provider 04/02/23 09/29/24 Radha Lomeli APRN GAS APPLIANCE ADJUSTER [facility] 918[address] Assigned Heart and Vascular Provider 05/28/23 11/29/24 Jelena David OD [facility] [facility] [address] [place] [id number] Ophthalmology 06/15/23 Esha Grimm PA-C [address] [place] [phone] Assigned PCP 07/16/23 Valery Veronica PA-C [address] [place] [address] Physician Clinical Lab Scientist Dermatology 09/19/23 Rey Tay MD [address] [place] [address] 510835 Gastroenterology 09/20/23 Rocky Zepeda DO [address] [place] [address] 081275 Physician Gastroenterology 09/20/23 Philip Dumont MD [address] [place] [address] Physician Ophthalmology 09/22/23 Meredith Carrera PA-C [address] [place] [address] Assigned Gastroenterology Provider 11/01/23 Neil Kent MD [address] [address] Dermatology 11/02/23 [place] [address] [place] [address] RAZO [address] [place] [address] [id number] Neurological Surgery 12/26/23 Audrey Waite PA-C [address] [place] [address] Physician Clinical Lab Scientist Dermatology 02/28/24 Valery Veronica PA-C 736408 [place], [place] [address] Physician Clinical Lab Scientist Dermatology 04/10/24 Herminia Hatch MD [address] [place] [address] [id number] Assigned Rheumatology Provider 07/02/24 Jelena David OD [address] [place] [address] [place] [address] Ophthalmology 08/30/24 [place] [address] [place] [address] Assigned Neuroscience Provider 09/30/24 Maru Man PA-C [address] [place] [address] Physician Clinical Lab Scientist Dermatology 10/03/24 Maru Man PA-C [address] [place] [address] Physician Clinical Lab Scientist Dermatology 10/22/24 Jelena David OD 3305 [facility] [place] [address] Assigned Surgical Provider 10/31/24 Fabiano Correa NP [address] [place] [address] Assigned Heart and Vascular Provider 11/30/24 documented as of this encounter
--- OUTSIDE RECORDS SUMMARY | 2024-12-17 21:45 | XMS_ITS | Encounter Summary ---
Author Organization [place] Address [address] [place] [address] 104[address] Care Team Providers Care Data Conversion Analyst Name Role Phone Diana Desir [facility] Unavailable Rain GalavizC Unavailable Tavia Wyatt MD Unavailable [phone] Erica Farrell APRN HIGH SCHOOL SCIENCE TEACHER Unavailable Rich Barrett MD Unavailable [phone] Neil Kent MD Unavailable ThangKendrickDiana Stanislav [facility] Unavailable Livan Sharif MD Unavailable Catherine Cm MD Unavailable + Valery Veronica-C Unavailable Brea Quinn APRN HIGH SCHOOL SCIENCE TEACHER Unavailable [phone] Esha Grimm PA-C Primary Care Provider [phone] Jelena David OD Unavailable Esha Grimm PA-C Unavailable [phone] Valery Veronica PA-C Unavailable [phone] Rey Tay MD Unavailable DuaneRocky Unavailable hPilip Dumont MD Unavailable Meredith Carrera PA-C Unavailable [phone] Neil Kent MD Unavailable Juan Pablo Emmanuel MD Unavailable [phone] Audrey Waite PA-C Unavailable Valery Veronica PA-C Unavailable Herminia Hatch MD Unavailable Jelena David OD Unavailable [phone] Juan Pablo Emmanuel MD Unavailable Maru ManC Unavailable Maru ManC Unavailable Jelena David OD Unavailable Fabiano Correa NP Unavailable [phone] Encounter Details Date Type Department Care Team (Late st Contact Info) Description 12/12/2024 Results Follow-Up [facility] [id number] [place] [phone] Anthony Doe PA-C [id number] [place] [address] Subj: Message about your results Social History [...] Answer Date Recorded PHQ-2 Score 1 10/24/2024 [facility] [...] exercise at this level? 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 Gender Identity Female 03/02/2021 5:45 PM CDT Sexual Orientation Straight 02/28/2020 12 :51 AM CDT documented as of this encounter Plan of Treatment Upcoming Encounters Date Type Department Care Team (Late st Contact Info) Description 12/19/2024 2:00 PM CDT Office Visit [facility] [address] [place] [phone] Lauren Claudio PA-C [address] [place] [address] 12/26/2024 7:30 AM CDT Office Visit [address] [place] [address] Neil Kent MD 500 [place] [address] 04/16/2025 11:00 AM CDT [facility] [address] [place] [address] 4th [place] [phone] Meredith Carrera PA-C [address] [place] [address] documented as of this encounter Visit Diagnoses Not on filedocumented in this encounter Additional Health Concerns Assessment Noted Time PHQ-9 Depression Total Score: 5 10/25/19 25 10:38 AM CDT documented as of this encounter Care Teams Data Conversion Analyst Relationship Specialty Start Date End Date Esha Grimm PA-C [address] [place] [phone] PCP - General Family Medicine 05/04/23 [facility] 3033 [place] [address] Pharmacist Pharmacist 04/17/21 Rain Galaviz PA-C [address] [place] [address] [place] [address] Physician [place] Dermatology 04/28/21 Tavia Wyatt MD [address] [place] [address] [place] [address] Dermatology 07/14/21 Erica Farrell APRN HIGH SCHOOL SCIENCE TEACHER [address] [place] [address] [place] [address] Nurse Practitioner Cardiovascular Disease 09/09/21 Rich Barrett MD [address] [place], [place] 6[address] Physician Ophthalmology 01/21/22 Neil Kent MD 500 [place] [address] Dermatology 02/24/22 Diana Desir, [facility] 3033 [place] [address] Assigned [facility] Pharmacist 04/07/22 Livan Sharif MD [address] [address] [address] Cardiovascular Disease 05/14/22 Catherine Cm MD [address] [address] Cardiovascular Disease 07/21/22 Valery Veronica, PA-C [address] [place] [address] 140075 Physician [place] Dermatology 07/21/22 Brea Quinn APRN HIGH SCHOOL SCIENCE TEACHER 500 [place], [place] 152745 Nurse Practitioner Dermatology 09/21/22 Jelena David OD [address] [facility] [place] [address] MD Ophthalmology 06/15/23 Esha Grimm PA-C [address] [place] [phone] Assigned PCP 07/16/23 Valery Veronica PA-C [address] [place] [address] 184095 Physician [place] Dermatology 09/19/23 Rey Tay MD [address] [place] [address] 279105 MD Gastroenterology 09/20/23 Rocky Zepeda DO [address] [place] [address] 707385 Physician Gastroenterology 09/20/23 Philip Dumont MD [address] [place] [address] 656325 Physician Ophthalmology 09/22/23 Meredith Carrera PA-C [address] [place] [address] 979955 Assigned Gastroenterology Provider 11/01/23 Neil Kent MD [address] [address] Dermatology 11/02/23 [place] [address] [place] [address] Neurological Surgery 12/26/23 Audrey Waite PA-C [address] [place] [address], [place] [address] Physician [place] Dermatology 02/28/24 Valery Veronica PA-C 683047 [address], [place] [address] Physician [place] Dermatology 04/10/24 Herminia Hatch MD [address] [place] [address] Assigned Rheumatology Provider 07/02/24 [place] [address] [place] [address] [place] [address] Ophthalmology 08/30/24 [place] [address] [place] [address] Assigned Neuroscience Provider 09/30/24 Maru Man PA-C [address] [place] [address] Physician [place] Dermatology 10/03/24 Maru Man PA-C [address] [place] [address] Physician [place] Dermatology 10/22/24 Jelena David OD [address] [place] [address] [place] [address] Assigned Surgical Provider 10/31/24 Fabiano Correa NP [address] [address] Assigned Heart and Vascular Provider 11/30/24 documented as of this encounter
--- OUTSIDE RECORDS SUMMARY | 2024-12-17 21:45 | XMS_ITS | Encounter Summary ---
Author Organization [place] Address [address] [place] [address] Care Team Providers Care Rag Sorter And Cutter Name Role Phone Diana Desir [facility] Unavailable Rain Galaviz PA-C Unavailable Tavia Wyatt MD Unavailable [phone] Erica Farrell APRN SEALS ENGRAVER Unavailable Rich Barrett MD Unavailable [phone] Neil Kent MD Unavailable Diana Desir [facility] Unavailable Livan Sharif MD Unavailable Catherine Cm MD Unavailable + Valery Veronica PA-C Unavailable Brea Quinn PROPERTY TECHNICIAN SEALS ENGRAVER Unavailable Brea Quinn PROPERTY TECHNICIAN SEALS ENGRAVER Unavailable Jose Francisco Johnson MD Unavailable Alfonso Renteria MD Unavailable [phone] Esha Grimm PA-C Primary Care Provider Radha Lomeli APRN SEALS ENGRAVER Unavailable Jelena David OD Unavailable [phone] Pao Joseph RN Unavailable Unavailable Esha Grimm PA-C Unavailable [phone] Valery Veronica PA-C Unavailable Rey Tay [...] (Late st Contact Info) Description 08/01/2023 [facility] Medical Advice [facility] [address] [place] [phone] Esha Grimm PA-C [address] [place] [address] Outreach Social History Tobacco Use [...] CDT 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 See pt's Mychart messages. Routed to PCP Pao Marcos RN PAL (Patient Advocate Liaison) [facility] T METAL DUCT WORKER SUPERVISOR documented in this encounter Plan of Treatment Upcoming Encounters Date Type Department Care Team (Late st Contact Info) Description 12/19/2024 2:00 PM CDT Office Visit [facility] [address] [place] [phone] Lauren Claudio PA-C [address] [place] [address] 12/26/2024 7:30 AM CDT Office Visit [facility] [address] [phone] Neil Knet MD [address] [place] [address] 643815 04/16/2025 11:00 AM CDT Virtual Visit [facility] Gastroenterology [address] [place] [phone] Meredith Carrera PA-C [address] [place] [address] 037805 documented as of this encounter Visit Diagnoses [...] Depression Total Score: 4 06/20/20 8:40 AM SHEET METAL DUCT WORKER SUPERVISOR documented as of this encounter Care Teams Rag Sorter And Cutter Relationship Specialty Start Date End Date Esha Grimm PA-C [address] [place] [address] PCP - General Family Medicine 05/04/23 Diana Desir, [facility] 3033 [place] [address] Pharmacist Pharmacist 04/17/21 Rain Galaviz PA-C [address] [place] [address] DR [address] [place] [address] Physician Vice President Of Manufacturing Dermatology 04/28/21 Tavia Wyatt MD [address] [place] [address] DR [address] [place] [address] Dermatology 07/14/21 Erica Farrell APRN SEALS ENGRAVER [address] [place] [address] Nurse Practitioner Cardiovascular Disease 09/09/21 Rich Barrett MD [address] [place] [address] Physician Ophthalmology 01/21/22 Neil Kent MD 500 [place] [address] Dermatology 02/24/22 Diana Desir, [facility] [address] [place], [place] 006626 Assigned [place] Pharmacist 04/07/22 Livan Sharif MD [address] [place] [address] 6520300 [place], [place] 946925 Cardiovascular Disease 05/14/22 Catherine Cm MD [address] [place] 6145700 [place], [place] 367845 Cardiovascular Disease 07/21/22 Valery Veronica, PA-C [address] [place] [address] 296995 Physician Vice President Of Manufacturing Dermatology 07/21/22 Brea Quinn APRN SEALS ENGRAVER [address] [place] [address] 123305 Nurse Practitioner Dermatology 09/21/22 Brea Quinn APRN SEALS ENGRAVER [address] [place] [address] 102532 Assigned Surgical Provider 10/09/22 05/01/24 [place] [address] 161507 Assigned Musculoskeletal Provider 10/09/22 05/01/24 Alfonso Renteria MD [address] [address] Assigned Neuroscience Provider 04/02/23 09/29/24 Radha Lomeli APRN SEALS ENGRAVER [address] [place] [address] Assigned Heart and Vascular Provider 05/28/23 11/29/24 Jelena David OD [address] [place] [address] Ophthalmology 06/15/23 Pao Joseph, VJ Personal Advocate & Liaison (PAL) Nurse 08/01/23 11/07/23 Esha Grimm PA-C [address] [place] [phone] Assigned PCP 07/16/23 Valery Veronica PA-C [address] [place] [address] 673495 Physician Vice President Of Manufacturing Dermatology 09/19/23 Rey Tay MD [address] [place] [address] 696395 Gastroenterology 09/20/23 Rocky Zepeda DO [address] [place] [address] 766485 Physician Gastroenterology 09/20/23 Philip Dumont MD [address] [place] [address] 814275 Physician Ophthalmology 09/22/23 Meredith Carrera PA-C [address] [place] [address] Assigned Gastroenterology Provider 11/01/23 Neil Kent MD [address] [place] [address] Dermatology 11/02/23 [place] [address] [place] [address] [place] [address] Neurological Surgery 12/26/23 Audrey Waite PA-C [address] [place] [address] Physician Vice President Of Manufacturing Dermatology 02/28/24 Valery Veronica PA-C [address] [place] [address] Physician Vice President Of Manufacturing Dermatology 04/10/24 Herminia Hatch MD [address] [place] [address] [id number] Assigned Rheumatology Provider 07/02/24 Jelena David OD [address] [place] [address] [place] [address] Ophthalmology 08/30/24 [place] [address] [place] [address] [place] [address] Assigned Neuroscience Provider 09/30/24 Maru Man PA-C [address] [place] [address] Physician Vice President Of Manufacturing Dermatology 10/03/24 Maru Man PA-C [address] [place] [address] Physician Vice President Of Manufacturing Dermatology 10/22/24 Jelena David OD [address] [place] [address] Assigned Surgical Provider 10/31/24 Fabiano Correa NP [address] [place] [address] Assigned Heart and Vascular Provider 11/30/24 documented as of this encounter
--- OUTSIDE RECORDS SUMMARY | 2024-12-17 21:45 | XMS_ITS | Encounter Summary ---
Author Organization [place] Address [address] [place] [address] Care Team Providers Care Model Dresser Name Role Phone [facility] Unavailable [phone] Rain GalavizC Unavailable [phone] Tavia Wyatt MD Unavailable Erica Farrell APRN HAT COPYIST Unavailable Rich Barrett MD Unavailable [phone] Neil Kent MD Unavailable DesirKendrickDiana Stanislav [facility] Unavailable [phone] Livan Sharif MD Unavailable Catherine Cm MD Unavailable + Valery Veronica-C Unavailable Brea Quinn ABSORPTION AND ADSORPTION ENGINEER HAT COPYIST Unavailable Alfonso Renteria MD Unavailable [phone] Esha GrimmC Primary Care Provider Radha Lomeli APRN HAT COPYIST Unavailable Jelena David OD Unavailable Alfa, Esha M PA-C Unavailable [phone] Valery Veronica PA-C Unavailable Rey Tay MD Unavailable Rocky Zepeda DO Unavailable Philip Dumont MD Unavailable [phone] Meredith Carrera PA-C Unavailable [phone] Neil Kent MD Unavailable Juan Pablo Emmanuel MD Unavailable Audrey Waite PA-C Unavailable Valery Veronica PA-C Unavailable [phone] Herminia Hatch MD Unavailable Jelena David OD Unavailable [phone] Juan Pablo Emmanuel MD Unavailable [phone] Maru Man PA-C Unavailable Maru Man PA-C Unavailable Jelena David OD Unavailable Fabiano Correa NP Unavailable Encounter Details Date Type Department Care Team (Late st Contact Info) Description 06/06/2024 [facility] [address] [place] [phone] Outside, Provider Social History Tobacco Use Types [...] 02/07/2024 [facility] [...] exercise at this level? 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 Gender Identity Female 03/02/2021 5:45 PM CDT Sexual Orientation Straight 02/28/2020 12 :51 AM CDT documented as of this encounter Plan of Treatment Upcoming Encounters Date Type Department Care Team (Late st Contact Info) Description 12/19/2024 2:00 PM CDT Office Visit [facility] [address] [place] [phone] Lauren Claudio PA-C [address] [place] [address] 12/26/2024 7:30 AM CDT Office Visit [address] [phone] Niel Kent MD [address] [place] [address] 372175 04/16/2025 11:00 AM CDT Virtual Visit [facility] [place] [address] [facility] 4th [place] [phone] Meredith Carrera PA-C [address] [place] [address] 153225 documented as of this encounter Procedures Procedure Name Priority Date/Time Associated Diagnosis Comments HLA RESULT REPORT 06/06/2024 2:04 PM BOOTH USHER documented in this encounter Results * HLA Result Report (06/06/2024 2:04 PM BOOTH USHER) us Provider Outside LAB - IMMUNOLOGY ORDERABLES [...] documented as of this encounter Care Teams Model Dresser Relationship Specialty Start Date End Date Esha Grimm PA-C [address] [place] [phone] PCP - General Family Medicine 05/04/23 Diana Desir, [facility] [address] [place], [place] [phone] Pharmacist Pharmacist 04/17/21 Rain Galaviz PA-C [address] [place] [address] [address] [place] [address] Physician Supervisor Hot Dip Tinning Dermatology 04/28/21 Tavia Wyatt MD [address] [place] [address] DR [address] Lara [place] [address] Dermatology 07/14/21 Erica Farrell APRN HAT COPYIST [address] [place] [address] Nurse Practitioner Cardiovascular Disease 09/09/21 Rich Barrett MD [address] [place] [address] Physician Ophthalmology 01/21/22 Neil Kent MD 500 [place], [place] 916495 Dermatology 02/24/22 Diana Desir, [facility] [address] [place] [address] Assigned MTM Pharmacist 04/07/22 Livan Sharif MD [address] [place] [id number] Cardiovascular Disease 05/14/22 Catherine Cm MD [address] [place] 959555 Cardiovascular Disease 07/21/22 Valery Veronica PA-C [address] [place] [address] 608575 Physician Supervisor Hot Dip Tinning Dermatology 07/21/22 Brea Quinn APRN HAT COPYIST [address] [place] [address] 768615 Nurse Practitioner Dermatology 09/21/22 Alfonso Renteria MD [address] [facility] 200 [place], [place] 143086 Assigned Neuroscience Provider 04/02/23 09/29/24 Radha Lomeli APRN HAT COPYIST [address] [address] Assigned Heart and Vascular Provider 05/28/23 11/29/24 Jelena David OD [address] [place] [address] [place] [address] Ophthalmology 06/15/23 Esha Grimm PA-C [address] [place] [address]-111783 Assigned PCP 07/16/23 Valery Veronica PA-C [address] [place] [address] 886145 Physician Supervisor Hot Dip Tinning Dermatology 09/19/23 Rey Tay MD [address] [place] [address] 590005 MD Gastroenterology 09/20/23 Rocky Zepeda DO [address] [place] [address] 267005 Physician Gastroenterology 09/20/23 Philip Dumont MD [address] [place] [address] 976015 Physician Ophthalmology 09/22/23 Meredith Carrera PA-C [address] [place] [address] 500145 Assigned Gastroenterology Provider 11/01/23 Neil Kent MD [address] 371620 MD Dermatology 11/02/23 [place] [address] [place] [address] [address] Neurological Surgery 12/26/23 Audrey Waite PA-C 500 [place] [address] Physician Supervisor Hot Dip Tinning Dermatology 02/28/24 Valery Veronica PA-C 914894 [address], [place] [address] Physician Supervisor Hot Dip Tinning Dermatology 04/10/24 Herminia Hatch MD [facility]5 [place] [address] Assigned Rheumatology Provider 07/02/24 [place] [address] [place] [address] [place] [address] Ophthalmology 08/30/24 [place] [address] [place] [address] Assigned Neuroscience Provider 09/30/24 Maru Man PA-C [address] [place] [address] Physician Supervisor Hot Dip Tinning Dermatology 10/03/24 Maru Man PA-C [address] [place] [address] Physician Supervisor Hot Dip Tinning Dermatology 10/22/24 Jelena David OD 3[address] [facility] [place] [address] Assigned Surgical Provider 10/31/24 Fabiano Correa NP [address] [place] [address] Assigned Heart and Vascular Provider 11/30/24 documented as of this encounter
--- OUTSIDE RECORDS SUMMARY | 2024-12-17 21:45 | XMS_ITS | Encounter Summary ---
Author Organization [place] Address [address] [place] [address] Care Team Providers Care Employee Service Officer Name Role Phone Diana Desir [facility] Unavailable Rain GalavizC Unavailable Tavia Wyatt MD Unavailable Erica Farrell APRN INFECTION CONTROL PRACTITIONER Unavailable Rich Barrett MD Unavailable [phone] Neil Kent MD Unavailable DesirKendrickDiana Stanislav [facility] Unavailable [phone] Livan Sharif MD Unavailable Catherine Cm MD Unavailable + Valery Veronica-C Unavailable Brea Quinn WALLPAPER PRINTER HELPER INFECTION CONTROL PRACTITIONER Unavailable Alfonso Renteria MD Unavailable [phone] Esha GrimmC Primary Care Provider Radha Lomeli APRN INFECTION CONTROL PRACTITIONER Unavailable [phone] Jelena David OD Unavailable Alfa, Esha M PA-C Unavailable [phone] Valery Veronica PA-C Unavailable Rey Tay MD Unavailable Rocky Zepeda DO Unavailable Philip Dumont MD Unavailable [phone] Meredith Carrera PA-C Unavailable [phone] Neil Kent MD Unavailable Juan Pablo Emmanuel MD Unavailable Audrey Waite PA-C Unavailable Valery Veronica PA-C Unavailable Herminia Hatch MD Unavailable Jelena David OD Unavailable Juan Pablo Emmanuel MD Unavailable Maru Man PA-C Unavailable Maru Man PA-C Unavailable Jelena David OD Unavailable [phone] Fabiano Correa NP Unavailable Encounter Details Date Type Department Care Team (Late st Contact Info) Description 06/05/2024 My[facility] Medical Advice [facility] Specialty [place] [address] [place] [address] Herminia Hatch MD [address] [place], [place] [phone] Social History Tobacco Use Types Packs/Day Years [...] exercise at this level? 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 [place] [address] [phone] Neil Kent MD [address] [place] [address] 04/16/2025 11:00 AM CDT Virtual Visit [facility] Gastro[facility]ology [facility] [place] [address] [place] [address] 4th [place] [phone] Meredith Carrera PA-C [address] [place] [address] 402345 documented as of this encounter Visit Diagnoses [...] as of this encounter Care Teams Employee Service Officer Relationship Specialty Start Date End Date Esha Grimm PA-C [address] [place] [phone] PCP - General Family Medicine 05/04/23 Diana Desir, [facility] [address] [place] [address] Pharmacist Pharmacist 04/17/21 Rain Galaviz PA-C [address] [place] [address] [address] [place], [place] [address] Physician Inspector And Unloader Dermatology 04/28/21 Tavia Wyatt MD [address] [place] [address] [address] [place] [address] Dermatology 07/14/21 Erica Farrell APRN INFECTION CONTROL PRACTITIONER [address] [place], [place] 694775 Nurse Practitioner Cardiovascular Disease 09/09/21 Rich Barrett MD [address] [place], [place] 035575 Physician Ophthalmology 01/21/22 Neil Kent MD 500 [place], [place] 340085 Dermatology 02/24/22 Diana Desir, [facility] 3033 [place], [place] 177756 Assigned MTM Pharmacist 04/07/22 Livan Sharif MD [address] [place], [place] 656275 Cardiovascular Disease 05/14/22 Catherine Cm MD [address] [place] [address] Cardiovascular Disease 07/21/22 Valery Veronica PA-C [address] [place] [address] Physician Inspector And Unloader Dermatology 07/21/22 Brea Quinn APRN INFECTION CONTROL PRACTITIONER [address] [place] [address] Nurse Practitioner Dermatology 09/21/22 Alfonso Renteria MD [address] [facility] [address] [place], [place] 992196 Assigned Neuroscience Provider 04/02/23 09/29/24 Radha Lomeli APRN INFECTION CONTROL PRACTITIONER 6405 [facility] [address] [place], [place] 355875 Assigned Heart and Vascular Provider 05/28/23 11/29/24 Jelena David OD [facility] [place] [address] Ophthalmology 06/15/23 Esha Grimm PA-C [address] [place] [address]-393083 Assigned PCP 07/16/23 Valery Veronica PA-C [address] [place] [address] Physician Inspector And Unloader Dermatology 09/19/23 Rey Tay MD [address] [place] [address] Gastroenterology 09/20/23 Rocky Zepeda DO [address] [place] [address] Physician Gastroenterology 09/20/23 Philip Dumont MD 516 [place] [address] Physician Ophthalmology 09/22/23 Meredith Carrera PA-C [address] [place] [address] Assigned Gastroenterology Provider 11/01/23 Neil Kent MD [address] [address] MD Dermatology 11/02/23 [place] [address] [place] [address] Neurological Surgery 12/26/23 Audrey Waite PA-C 500 [place] [address] Physician Inspector And Unloader Dermatology 02/28/24 Valery Veronica PA-C [address]75 [address] [place] [address] Physician Inspector And Unloader Dermatology 04/10/24 Herminia Hatch MD [facility]5 [place], [place] 36854125 Assigned Rheumatology Provider 07/02/24 [place] [address] [place] [address] [place] [address] Ophthalmology 08/30/24 [place] [address] [address] [address] Assigned Neuroscience Provider 09/30/24 Maru Man PA-C [address] [place] [address] Physician Inspector And Unloader Dermatology 10/03/24 Maru Man PA-C [address] [place] [address] Physician Inspector And Unloader Dermatology 10/22/24 Jelena David OD 3305 [facility] [place] [address] Assigned Surgical Provider 10/31/24 Fabiano Correa, BRYCE [address] [place] [address] Assigned Heart and Vascular Provider 11/30/24 documented as of this encounter
--- OUTSIDE RECORDS SUMMARY | 2024-12-17 21:45 | XMS_ITS | Encounter Summary ---
Author Organization [place] Address [address] [place] [address] Care Team Providers Care Insole Cementer Name Role Phone Diana Desir [facility] Unavailable Rain Galaviz PA-C Unavailable Tavia Wyatt MD Unavailable Erica Farrell APRN TRAVEL PT Unavailable Rich Barrett MD Unavailable [phone] Neil Kent MD Unavailable DesirDiana [facility] Unavailable Livan Sharif MD Unavailable Catherine Cm MD Unavailable + Valery Veronica PA-C Unavailable [phone] Brea Quinn APRN TRAVEL PT Unavailable Brea Quinn CHIEF DEPUTY CLERK/BAILIFF TRAVEL PT Unavailable Jose Francisco Johnson MD Unavailable Sydnie Martinez RN Unavailable Unavailable Alfonso Renteria MD Unavailable [phone] Esha Grimm PA-C Primary Care Provider Cheng Todd PA-C Unavailable Radha Lomeli APRN TRAVEL PT Unavailable Jelena David OD Unavailable [phone] Pao Joseph RN Unavailable Unavailable Esha Grimm PA-C Unavailable [phone] Valery Veronica PA-C Unavailable Rey Tay [...] [facility] [address] [place] [address] Esha Grimm PA-C [address] [place] [address] Social History Tobacco Use Types [...] you attend [facility] or [facility]? 1 to 4 times [...] 0 06/20/2023 [facility] [...] exercise at this level? 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 Gender Identity Female 03/02/2021 5:45 PM CDT Sexual Orientation Straight 02/28/2020 12 :51 AM CDT documented as of this encounter Plan of Treatment Upcoming Encounters Date Type Department Care Team (Late st Contact Info) Description 12/19/2024 2:00 PM CDT Office Visit [address] [place] [address] Lauren Claudio PA-C [address] [place] [address] 12/26/2024 7:30 AM CDT Office Visit [facility] [address] [phone] Neil Kent MD [address] [place] [address] 04/16/2025 11:00 AM CDT Virtual Visit [facility] [place] [address] [place] [address] 4th [place] [phone] Meredith Carrera PA-C [address] [place] [address] documented as of this encounter Visit Diagnoses [...] Total Score: 4 06/20/20 23 8:40 AM MASTER FIRE CONTROL TECHNICIAN documented as of this encounter Care Teams Insole Cementer Relationship Specialty Start Date End Date Esha Grimm PA-C [address] [place] [address] PCP - General Family Medicine 05/04/23 Diana Desir [facility] [address] [place] [address] Pharmacist Pharmacist 04/17/21 Rain Galaviz PA-C [address] [place] [address] [address] [place] [address] Physician House Shorer Dermatology 04/28/21 Tavia Wyatt MD [address] [place] [address] [address] [place] [address] Dermatology 07/14/21 Erica Farrell APRN TRAVEL PT [address] [place] [address] Nurse Practitioner Cardiovascular Disease 09/09/21 Rich Barrett MD [address] [place] [address] Physician Ophthalmology 01/21/22 Neil Kent MD 500 [place] [address] Dermatology 02/24/22 Diana Desir [facility] [address] [place] [address] Assigned MTM Pharmacist 04/07/22 Livan Sharif MD [address] [place] [address] Cardiovascular Disease 05/14/22 Catherine Cm MD [address] [place] 2933800 [place] [address] Cardiovascular Disease 07/21/22 Valery Veronica PA-C [address] [place] [address] Physician House Shorer Dermatology 07/21/22 Brea Quinn APRN TRAVEL PT [address] [place] [address] Nurse Practitioner Dermatology 09/21/22 [place] [address] [place] [address] Assigned Surgical Provider 10/09/22 05/01/24 [place] [address] [facility] 300 [place] [address] Assigned Musculoskeletal Provider 10/09/22 05/01/24 Sydnie Martinez RN Personal Advocate & Liaison (PAL) Family Medicine 03/28/23 07/31/23 Alfonso Renteria MD 5775 [facility] 200 [place], [place] 140136 Assigned Neuroscience Provider 04/02/23 09/29/24 Cheng Todd PA-C [address] [place] [address] [id number] Assigned PCP 04/30/23 07/15/23 Radha Lomeli APRN TRAVEL PT 6405 [facility] [address] [place], [place] 228165 Assigned Heart and Vascular Provider 05/28/23 11/29/24 Jelena David OD [address] [facility] [address] [place] [id number] MD Ophthalmology 06/15/23 Pao Joseph, VJ Personal Advocate & Liaison (PAL) Nurse 08/01/23 11/07/23 Esha Grimm PA-C [address] [place] [phone] Assigned PCP 07/16/23 Valery Veronica PA-C [address] [place] [address] 012805 Physician House Shorer Dermatology 09/19/23 Rey Tay MD [address] [place] [address] 028175 MD Gastroenterology 09/20/23 Rocky Zepeda DO [address] [place] [address] 531565 Physician Gastroenterology 09/20/23 Philip Dumont MD [address] [place] [address] 321925 Physician Ophthalmology 09/22/23 Meredith Carrera PA-C [address] [place] [address] 446135 Assigned Gastroenterology Provider 11/01/23 Neil Kent MD [address] [place] [address] Dermatology 11/02/23 [place] [address] [place] [address] [place] [address] Neurological Surgery 12/26/23 Audrey Waite PA-C 500 [place] [address] Physician House Shorer Dermatology 02/28/24 Valery Veronica PA-C 514992 [place] [address] Physician House Shorer Dermatology 04/10/24 Herminia Hatch MD [address] [place] [address] [id number] Assigned Rheumatology Provider 07/02/24 Jelena David OD [address] [place] [address] [place] [address] Ophthalmology 08/30/24 [place] [address] [place] [address] [place] [address] Assigned Neuroscience Provider 09/30/24 Maru Man PA-C [address] [place] [address] Physician House Shorer Dermatology 10/03/24 Maru Man PA-C [address] [place] [address] Physician House Shorer Dermatology 10/22/24 Jelena David OD [address] [facility] [place] [address] Assigned Surgical Provider 10/31/24 Fabiano Correa NP [address] [place] [address] Assigned Heart and Vascular Provider 11/30/24 documented as of this encounter
--- OUTSIDE RECORDS SUMMARY | 2024-12-17 21:45 | XMS_ITS | Encounter Summary ---
Author Organization [place] Address [address] [place] [address] Care Team Providers Care Audit Associate Name Role Phone Diana Desir [facility] Unavailable [phone] Rain GalavizC Unavailable Tavia Wyatt MD Unavailable [phone] Erica Farrell APRN MANAGER BOOKS Unavailable Rich Barrett MD Unavailable [phone] Neil Kent MD Unavailable ThangKendrickDiana Stanislav [facility] Unavailable Livan Sharif MD Unavailable Catherine Cm MD Unavailable + Valery Veronica-C Unavailable Brea Quinn APRN MANAGER BOOKS Unavailable Esha Grimm PA-C Primary Care Provider Jelena David OD Unavailable Esha Grimm PA-C Unavailable [phone] Valery Veronica PA-C Unavailable [phone] Rey Tay MD Unavailable DuaneRocky Unavailable Philip Dumont MD Unavailable [phone] Meredith Carrera PA-C Unavailable [phone] Neil Kent MD Unavailable Juan Pablo Emmanuel MD Unavailable Audrey Waite PA-C Unavailable Valery Veronica PA-C Unavailable [phone] Herminia Hatch MD Unavailable Jelena David OD Unavailable [phone] Juan Pablo Emmanuel MD Unavailable [phone] Maru Man PA-C Unavailable Maru Man PA-C Unavailable Jelena David OD Unavailable Fabiano Correa NP Unavailable Encounter Details Date Type Department Care Team (Late st Contact Info) Description 12/05/2024 Results Follow-Up [facility] [place] [address] [place] [address] Amalia Zayas MD [address] [facility] [place] [address] Dx: Pneumonia of right lower lobe due to infectious organism (Primary Dx) Social History Tobacco Use Types [...] exercise at this level? 20 min 05/07/2024 Perry Depression Scale Answer Date Recorded Perry Depression Score 5 01/14/2021 Last EPDS Self [...] Date Recorded Do you have housing? 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 Gender Identity Female 03/02/2021 5:45 PM CDT Sexual Orientation Straight 02/28/2020 12 :51 AM CDT documented as of this encounter Plan of Treatment Upcoming Encounters Date Type Department Care Team (Late st Contact Info) Description 12/19/2024 2:00 PM CDT Office Visit [facility] [address] [place] [phone] Lauren Claudio PA-C [address] [place] [address] 12/26/2024 7:30 AM CDT Office Visit [facility] [address] [phone] Neil Kent MD [address] [place] [address] 04/16/2025 11:00 AM CDT Virtual Visit [facility] Gastroenterology [facility] [address] [place] [address] 4th [place] [phone] Meredith Carrera PA-C [address] [place] [address] documented as of this encounter Visit Diagnoses Diagnosis Pneumonia of right lower lobe due to infectious organism- Primary documented in this encounter Additional Health Concerns Assessment Noted Time PHQ-9 Depression Total Score: 5 10/25/19 25 10:38 AM CDT documented as of this encounter Care Teams Audit Associate Relationship Specialty Start Date End Date Esha Grimm PA-C [address] [place] [phone] PCP - General Family Medicine 05/04/23 Diana Desir, [facility] [address] [place] [address] Pharmacist Pharmacist 04/17/21 Rain Galaviz PA-C [address] [place] [address] [address] [place] [address] Physician Link Trainer Dermatology 04/28/21 Tavia Wyatt MD [address] [place] [address] [address] [facility] [place] [address] Dermatology 07/14/21 Erica Farrell APRN MANAGER BOOKS [address] [place] [address] Nurse Practitioner Cardiovascular Disease 09/09/21 Rich Barrett MD [address] [place] [address]65 Physician Ophthalmology 01/21/22 Neil Kent MD 500 [place], [place] [address]255 Dermatology 02/24/22 Diana Desir, [facility] [address] [place], [place] 378076 Assigned [facility] Pharmacist 04/07/22 Livan Sharif MD [address] [place] 28[address] Cardiovascular Disease 05/14/22 Catherine Cm MD [address] [place], [place] 6[address]85 Cardiovascular Disease 07/21/22 Valery Veronica, PA-C [address] [place] [address]1965 Physician Link Trainer Dermatology 07/21/22 Brea Quinn APRN MANAGER BOOKS 500 [place], [place] 653105 Nurse Practitioner Dermatology 09/21/22 [place] [address] [place] [address] [place] [address] MD Ophthalmology 06/15/23 Esha Grimm PA-C [address] [place] [address] Assigned PCP 07/16/23 Valery Veronica PA-C [address] [place] [address] 613015 Physician Link Trainer Dermatology 09/19/23 Rey Tay MD [address] [place] [address] 213505 MD Gastroenterology 09/20/23 Rocky Zepeda DO [address] [place] [address] 156505 Physician Gastroenterology 09/20/23 Philip Dumont MD [address] [place] [address] 787925 Physician Ophthalmology 09/22/23 Meredith Carrera PA-C [address] [place] [address] 558895 Assigned Gastroenterology Provider 11/01/23 Neil Kent MD [address] [place] [address] Dermatology 11/02/23 [place] [address] [place] [address] Neurological Surgery 12/26/23 Audrey Waite PA-C 500 [place] [address] Physician Link Trainer Dermatology 02/28/24 Valery Veronica PA-C [address] [place] [address] Physician Link Trainer Dermatology 04/10/24 Herminia Hatch MD [address] [place] [address] Assigned Rheumatology Provider 07/02/24 Jelena David OD [address] [place] [address] [place] [address] Ophthalmology 08/30/24 [place] [address] [place] [address] Assigned Neuroscience Provider 09/30/24 Maru Man PA-C [address] [place] [address] Physician Link Trainer Dermatology 10/03/24 Maru Man PA-C [address] [place] [address] Physician Link Trainer Dermatology 10/22/24 Jelena David OD [address] [place] [address] [place] [address] Assigned Surgical Provider 10/31/24 Fabiano Correa, FISCAL SERVICES MANAGER [address] [place] [address] Assigned Heart and Vascular Provider 11/30/24 documented as of this encounter
--- OUTSIDE RECORDS SUMMARY | 2024-12-17 21:45 | XMS_ITS | Encounter Summary ---
Author Organization [place] Address [address] [place] [address] Care Team Providers Care Director Of Field Sales Name Role Phone Diana Desir [facility] Unavailable Rain Galaviz PA-C Unavailable [phone] Tavia Wyatt MD Unavailable Erica Farrell APRN DISH MAKER Unavailable Rich Barrett MD Unavailable [phone] Neil Kent MD Unavailable DesirDiana [facility] Unavailable [phone] Livan Sharif MD Unavailable Catherine Cm MD Unavailable + Valery Veronica PA-C Unavailable Brea Quinn APRN DISH MAKER Unavailable Brea Quinn MICROBIOLOGY LAB TECHNICIAN DISH MAKER Unavailable Jose Francisco Johnson MD Unavailable Sydnie Martinez RN Unavailable Unavailable Alfonso Renteria MD Unavailable [phone] Esha Grimm PA-C Primary Care Provider [phone] Cheng Todd PA-C Unavailable Radha Lomeli APRN DISH MAKER Unavailable Jelena David OD Unavailable [phone] Pao Joseph RN Unavailable Unavailable Esha Grimm Adam PA-C Unavailable [phone] Valery Veronica PA-C Unavailable Rey Tay [...] MyC Medical Advice [facility] [address], [address] [place] [address] Alfonso Renteria MD [address] [facility] [address] [place] [address] Social History Tobacco Use Types [...] attend [facility] or gnosticist services? 1 to 4 [...] Score 0 06/20/2023 [facility] [...] exercise at this level? 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 Patient continues to have a lot of dizzyness and neck pain. RELIEF OPERATOR documented in this encounter Plan of Treatment Upcoming Encounters Date Type Department Care Team (Late st Contact Info) Description 12/19/2024 2:00 PM CDT Office Visit [facility] [address] [place] [phone] Lauren Claudio PA-C [address] [place] [address] 12/26/2024 7:30 AM CDT Office Visit [facility] [address] [phone] Neil Kent MD [address] [place] [address] 587[address] 04/16/2025 11:00 AM CDT Virtual Visit [facility] G[facility] [place] [address] [place] [address] 4th [place] [phone] Meredith Carrera PA-C [address] [place] [address] documented as of this encounter Visit Diagnoses [...] Total Score: 6 05/16/20 23 9:29 AM TOLL RELIEF OPERATOR documented as of this encounter Care Teams Director Of Field Sales Relationship Specialty Start Date End Date Esha Grimm PA-C [address] [place] [address] PCP - General Family Medicine 05/04/23 Diana Desir, [facility] [address] [place] [address] Pharmacist Pharmacist 04/17/21 Rain Galaviz PA-C [address] [place] [address] [address] [facility] [address] [facility] [place] [address] Physician Service Unit Operator Dermatology 04/28/21 Tavia Wyatt MD [address] [place] [address] [facility] [address] [facility] [place] [address] Dermatology 07/14/21 Erica Farrell APRN DISH MAKER [address] [place] [address] Nurse Practitioner Cardiovascular Disease 09/09/21 Rich Barrett MD [address] [place] [address] Physician Ophthalmology 01/21/22 Neil Kent MD 500 [place], [place] [address]215 Dermatology 02/24/22 Diana Desir, [facility] [address] [place], [place] [phone] Assigned [facility] Pharmacist 04/07/22 Livan Sharif MD [address] [facility] [address] [address] Cardiovascular Disease 05/14/22 Catherine Cm MD 6405 [facility] [address] 732905 Cardiovascular Disease 07/21/22 Valery Veronica, PA-C [address] [place] [address] 634115 Physician Service Unit Operator Dermatology 07/21/22 Brea Quinn APRN DISH MAKER 500 [place], [place] [phone] Nurse Practitioner Dermatology 09/21/22 Brea Quinn APRN DISH MAKER [address] [place] [address] 176362 Assigned Surgical Provider 10/09/22 05/01/24 [place] [address] [place] [address] 532097 Assigned Musculoskeletal Provider 10/09/22 05/01/24 Sydnie Martinez RN Personal Advocate & Liaison (PAL) Family Medicine 03/28/23 07/31/23 Alfonso Renteria MD [address] [facility] [address] [place] [address] Assigned Neuroscience Provider 04/02/23 09/29/24 Cheng Todd PA-C [address] [place] [address] Assigned PCP 04/30/23 07/15/23 Radha Lomeli, MICROBIOLOGY LAB TECHNICIAN DISH MAKER [address] [facility] [address] [place], [place] 548225 Assigned Heart and Vascular Provider 05/28/23 11/29/24 Jelena David OD [address] [place] [address] Ophthalmology 06/15/23 Pao Joseph, VJ Personal Advocate & Liaison (PAL) Nurse 08/01/23 11/07/23 Esha Grimm PA-C [address] [place] [address] Assigned PCP 07/16/23 Valery Veronica PA-C [address] [place] [address] 665845 Physician Service Unit Operator Dermatology 09/19/23 Rey Tay MD [address] [place] [address] 216005 Gastroenterology 09/20/23 Rocky Zepeda DO [address] [place] [address] 669185 Physician Gastroenterology 09/20/23 Philip Dumont MD 516 [place] [address] Physician Ophthalmology 09/22/23 Meredith Carrera PA-C [address] [place] [address] Assigned Gastroenterology Provider 11/01/23 Neil Kent MD [address] [address] Dermatology 11/02/23 [place] [address] [place], [place] 34535337 Neurological Surgery 12/26/23 Audrey Waite PA-C [address] [place] [address] Physician Service Unit Operator Dermatology 02/28/24 Valery Veronica PA-C 777503 [place], [place] 531529 Physician Service Unit Operator Dermatology 04/10/24 Herminia Hatch MD [address] [place] [address] [id number] Assigned Rheumatology Provider 07/02/24 [place] [address] [place] [address] [place] [address] Ophthalmology 08/30/24 [place] [address] [place] [address] Assigned Neuroscience Provider 09/30/24 Maru Man PA-C [address] [place] [address] Physician Service Unit Operator Dermatology 10/03/24 Maru Man PA-C [address] [place] [address] 8[address] Physician Service Unit Operator Dermatology 10/22/24 Jelena David OD [facility] [place] [address] Assigned Surgical Provider 10/31/24 Fabiano Correa, FILTER PRESS TENDER [address] [place] [address] Assigned Heart and Vascular Provider 11/30/24 documented as of this encounter
--- OUTSIDE RECORDS SUMMARY | 2024-12-17 21:45 | XMS_ITS | Encounter Summary ---
Author Organization [place] Address [address] [place] [address] 9[address] Care Team Providers Care Office Machine Mechanic Name Role Phone Diana Desir [facility] Unavailable [phone] Rain GalavizC Unavailable Tavia Wyatt MD Unavailable [phone] Erica Farrell APRN WOOD PILER Unavailable Rich Barrett MD Unavailable [phone] Neil Kent MD Unavailable ThangKendrickDiana Stanislav [facility] Unavailable Livan Sharif MD Unavailable Catherine Cm MD Unavailable + Valery Veronica-C Unavailable Brea Quinn APRN WOOD PILER Unavailable Esha Grimm PA-C Primary Care Provider Jelena David OD Unavailable Esha Grimm PA-C Unavailable [phone] Valery Veronica PA-C Unavailable Rey Tay MD Unavailable DuaneRocky Unavailable Philip Dumont MD Unavailable [phone] Meredith Carrera PA-C Unavailable [phone] Neil Kent MD Unavailable Juan Pablo Emmanuel MD Unavailable Audrey Waite PA-C Unavailable [phone] Valery Veronica PA-C Unavailable Herminia Hatch MD Unavailable Jelena David OD Unavailable Juan Pablo Emmanuel MD Unavailable [phone] Maur Man-C Unavailable [phone] Maru Man-C Unavailable [phone] Jelena David OD Unavailable [phone] Fabiano Correa NP Unavailable [phone] Encounter Details Date Type Department Care Team (Latest Contact Info) Description 12/17/2024 Travel Social History Tobacco Use Types Packs/Day [...] week 05/07/2024 How often do you attend [facility] or adventism services? 1 to 4 [...] 1 10/24/2024 [facility] ional [...] exercise at this level? 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 Gender Identity Female 03/02/2021 5:45 PM CDT Sexual Orientation Straight 02/28/2020 12 :51 AM CDT documented as of this encounter Plan of Treatment Upcoming Encounters Date Type Department Care Team (Late st Contact Info) Description 12/19/2024 2:00 PM CDT Office Visit [facility] [address] [place] [address] Lauren Claudio PA-C [address] [place] [address] 12/26/2024 7:30 AM CDT Office Visit [facility] [address] [address] Neil Kent MD [address] [place] [address] 04/16/2025 11:00 AM CDT Virtual Visit [facility] G[facility]ology [facility] [place] [address] [facility] [address] 4th [place] [phone] Meredith Carrera PA-C [address] [place] [address] documented as of this encounter Visit Diagnoses Not on filedocumented in this encounter Additional Health Concerns Assessment Noted Time PHQ-9 Depression Total Score: 5 10/25/19 25 10:38 AM CDT documented as of this encounter Care Teams Office Machine Mechanic Relationship Specialty Start Date End Date Esha Grimm PA-C [address] [place] [address] PCP - General Family Medicine 05/04/23 Diana Desir, [facility] [address] [place] [address] Pharmacist Pharmacist 04/17/21 Rain Galaviz PA-C [address] [place] [address] [address] [place] [address] Physician Housing Assistant Dermatology 04/28/21 Tavia Wyatt MD [address] [place] [address] [address] [place] [address] Dermatology 07/14/21 Erica Farrell APRN WOOD PILER [address] [place] [address] Nurse Practitioner Cardiovascular Disease 09/09/21 Rich Barrett MD [address] [place] [address] Physician Ophthalmology 01/21/22 Neil Kent MD 500 [place], [place] [address] Dermatology 02/24/22 Diana Desir, [facility] [address] [place], [place] 242276 Assigned [place] Pharmacist 04/07/22 Livan Sharif MD [address] [place], [place] 657[address] Cardiovascular Disease 05/14/22 Catherine Cm MD [address] [place], [place] 157475 Cardiovascular Disease 07/21/22 Valery Veronica PA-C 909 [place], [place] [address]35 Physician Housing Assistant Dermatology 07/21/22 Brea Quinn APRN WOOD PILER 500 [place], [place] 751535 Nurse Practitioner Dermatology 09/21/22 Jelena David OD [address] [facility] [place] [place] [address] Ophthalmology 06/15/23 Esha Grimm PA-C [address] [place] [address] Assigned PCP 07/16/23 Valery Veronica PA-C [address] [place] [address] Physician Housing Assistant Dermatology 09/19/23 Rey Tay MD [address] [place] [address] MD Gastroenterology 09/20/23 Rocky Zepeda DO [address] [place] [address] Physician Gastroenterology 09/20/23 Philip Dumont MD [address] [place] [address] Physician Ophthalmology 09/22/23 Meredith Carrera PA-C [address] [place] [address] Assigned Gastroenterology Provider 11/01/23 Neil Kent MD [address] [address] Dermatology 11/02/23 [place] [address] [place] [address] Neurological Surgery 12/26/23 Audrey Waite PA-C [address] [place] [address] Physician Housing Assistant Dermatology 02/28/24 Valery Veronica PA-C [id number] [address] [place] [address] Physician Housing Assistant Dermatology 04/10/24 Herminia Hatch MD [facility]5 [place], [place] 13092125 Assigned Rheumatology Provider 07/02/24 Jelena David, SONJA [address] [facility] [place] [address] Ophthalmology 08/30/24 [place] [address] [place] [address] Assigned Neuroscience Provider 09/30/24 Maru Man PA-C [address] [place] [address] Physician Housing Assistant Dermatology 10/03/24 Maru Man PA-C [address] [place] [address] Physician Housing Assistant Dermatology 10/22/24 Jelena David OD [facility]5 [facility] [place] [address] Assigned Surgical Provider 10/31/24 Fabiano Correa NP [address] [place] [address] Assigned Heart and Vascular Provider 11/30/24 documented as of this encounter
--- OUTSIDE RECORDS SUMMARY | 2024-12-17 21:45 | XMS_ITS | Encounter Summary ---
Author Organization [facility] Address [address] [place] [address] Care Team Providers Care Gauge Inspector Name Role Phone Diana Desir [facility] Unavailable [phone] Rain Galaviz PA-C Unavailable Tavia Wyatt MD Unavailable Erica Farrell APRN SURVEYOR HELPER Unavailable Rich Barrett MD Unavailable [phone] Neil Kent MD Unavailable DesirDiana [facility] Unavailable Livan Sharif MD Unavailable Catherine Cm MD Unavailable + Valery Veronica PA-C Unavailable Brea Quinn APRN SURVEYOR HELPER Unavailable Brea Quinn CARD PAINTER SURVEYOR HELPER Unavailable Jose Francisco Johnson MD Unavailable Sydnie Martinez RN Unavailable Unavailable Alfonso Renteria MD Unavailable [phone] Esha Grimm PA-C Primary Care Provider [phone] Cheng Todd PA-C Unavailable Radha Lomeli APRN SURVEYOR HELPER Unavailable Jelena David OD Unavailable [phone] Pao Joseph RN Unavailable Unavailable Esha Grimm Adam PA-C Unavailable [phone] Valery Veronica PA-C Unavailable Rey Tay [...] MyC Medical Advice [facility] [address], [address] [place] [address] Alfonso Renteria MD [address] [facility] [address] [place] [address] Social History Tobacco Use Types [...] week 03/10/2023 How often do you attend [facility] or congregation services? 1 to 4 times [...] Answer Date Recorded PHQ-2 Score 0 06/20/2023 [facility] [...] exercise at this level? 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 Last office note indicated: If repeat MRI was normal would reduce levetiracetam to 250 mg per day for two weeks and then stop. Ok to proceed with this plan. Call if questions, concerns, or worsening of symptoms with discontinuation of the medication Genny Hyman PA-C NING ROOM OPERATOR documented in this encounter Plan of Treatment Upcoming Encounters Date Type Department Care Team (Late st Contact Info) Description 12/19/2024 2:00 PM CDT Office Visit [facility] [id number] [place] [phone] Lauren Claudio PA-C [address] [place] [address] 12/26/2024 7:30 AM CDT Office Visit [facility] [address] [phone] Neil Kent MD [address] [place] [address] 04/16/2025 11:00 AM CDT Virtual Visit [facility] [place] [address] [place] [address] 4[address] [place] [phone] Meredith Carrera PA-C [address] [place] [address] documented as of this encounter Visit Diagnoses [...] Depression Total Score: 4 06/20/20 8:40 AM RIPENING ROOM OPERATOR documented as of this encounter Care Teams Gauge Inspector Relationship Specialty Start Date End Date Esha Grimm PA-C [address] [place] [phone] PCP - General Family Medicine 05/04/23 Diana Desir, [facility] [address] [place], [place] [address] Pharmacist Pharmacist 04/17/21 Rain Galaviz PA-C [address] [place] [address] [address] [facility] [place] [address] Physician Almond Roaster Dermatology 04/28/21 aTvia Wyatt MD [address] [place] [address] [address] [facility] [place] [address] Dermatology 07/14/21 Erica Farrell APRN SURVEYOR HELPER [address] [place] [id number] Nurse Practitioner Cardiovascular Disease 09/09/21 Rich Barrett MD [address] [place] [address] Physician Ophthalmology 01/21/22 Neil Kent MD 500 [place], [place] 27[address] Dermatology 02/24/22 Diana Desir, [facility] [address] [place], [place] 137806 Assigned MTM Pharmacist 04/07/22 Livan Sharif MD [address] [place] [address] Cardiovascular Disease 05/14/22 Catherine Cm MD [address] [facility] [place] [address] Cardiovascular Disease 07/21/22 Valery Veronica, PA-C [address] [place], [place] 8[address] Physician Almond Roaster Dermatology 07/21/22 Brea Quinn APRN SURVEYOR HELPER 500 [place] [address] Nurse Practitioner Dermatology 09/21/22 Brea Quinn APRN SURVEYOR HELPER [address] [place] [address] [place] [id number] Assigned Surgical Provider 10/09/22 05/01/24 [place] [address] [place] [address] Assigned Musculoskeletal Provider 10/09/22 05/01/24 Sydnie Martinez RN Personal Advocate & Liaison (PAL) Family Medicine 03/28/23 07/31/23 Alfonso Renteria MD [address] [facility] [address] [place] [address] Assigned Neuroscience Provider 04/02/23 09/29/24 Cheng Todd PA-C [address] [place] [address] Assigned PCP 04/30/23 07/15/23 Radha Lomeli APRN SURVEYOR HELPER [address] [facility] [address] [place] [address] Assigned Heart and Vascular Provider 05/28/23 11/29/24 Jelena David OD [address] [facility] [place] [address] Ophthalmology 06/15/23 Pao Joseph, VJ Personal Advocate & Liaison (PAL) Nurse 08/01/23 11/07/23 Esha Grimm PA-C [address] [place] [phone] Assigned PCP 07/16/23 Valery Veronica PA-C [address] [place] [address] 654025 Physician Almond Roaster Dermatology 09/19/23 Rey Tay MD [address] [place] [address] Gastroenterology 09/20/23 Rocky Zepeda DO [address] [place] [address] Physician Gastroenterology 09/20/23 Philip Dumont MD [address] [place] [address] Physician Ophthalmology 09/22/23 Meredith Carrera PA-C [address] [place] [address] Assigned Gastroenterology Provider 11/01/23 Neil Kent MD [address] [address] MD Dermatology 11/02/23 [place] [address] [address] [facility] [place] [address] Neurological Surgery 12/26/23 Audrey Waite PA-C [address] [place] [address] Physician Almond Roaster Dermatology 02/28/24 Valery Veronica PA-C [id number] [place] [address] Physician Almond Roaster Dermatology 04/10/24 Herminia Hatch MD [address] [place] [address] Assigned Rheumatology Provider 07/02/24 [place] [address] [place] [address] [place] [address] Ophthalmology 08/30/24 [place] [address] [place] [address] Assigned Neuroscience Provider 09/30/24 Maru Man PA-C [address] [place] [address] Physician Almond Roaster Dermatology 10/03/24 Maru Man PA-C [address] [place] [address] Physician Almond Roaster Dermatology 10/22/24 Jelena David OD [address] [facility] [place] [address] Assigned Surgical Provider 10/31/24 Fabiano Correa NP [address] [place] [place] [address] Assigned Heart and Vascular Provider 11/30/24 documented as of this encounter
--- OUTSIDE RECORDS SUMMARY | 2024-12-17 21:45 | XMS_ITS | Encounter Summary ---
Author Organization [facility] Address [address] [place] [address] Care Team Providers Care Singer Songwriter Name Role Phone Diana Desir [facility] Unavailable [phone] Rain GalavizC Unavailable Tavia Wyatt MD Unavailable [phone] Erica Farrell APRN PERSONAL BANKING REPRESENTATIVE Unavailable Rich Barrett MD Unavailable [phone] Neil Kent MD Unavailable ThangKendrickDiana Stanislav [facility] Unavailable [phone] Livan Sharif MD Unavailable Catherine Cm MD Unavailable + Valery Veronica-C Unavailable Brea Quinn APRN PERSONAL BANKING REPRESENTATIVE Unavailable Esha Grimm PA-C Primary Care Provider Jelena David OD Unavailable Esha Grimm PA-C Unavailable [phone] Valery Veronica PA-C Unavailable Rey Tay MD Unavailable DuaneRocky Unavailable Philip Dumont MD Unavailable [phone] Meredith Carrera PA-C Unavailable [phone] Neil Kent MD Unavailable Juan Pablo Emmanuel MD Unavailable [phone] Audrey Waite PA-C Unavailable [phone] Valery Veronica PA-C Unavailable Herminia Hatch MD Unavailable Jelena David OD Unavailable [phone] Juan Pablo Emmanuel MD Unavailable [phone] Maru Man-C Unavailable [phone] Maru Man-C Unavailable [phone] Jelena David OD Unavailable Fabiano Correa NP Unavailable [phone] Encounter Details Date Type Department Care Team (Latest Contact Info) Description 12/04/2024 Travel Social History Tobacco Use Types Packs/Day [...] How often do you attend [facility] or [facility] services? 1 to 4 [...] Answer Date Recorded PHQ-2 Score 1 10/24/2024 [facility] [...] exercise at this level? 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 [address] [place] [phone] Lauren Claudio PA-C [address] [place] [address] 12/26/2024 7:30 AM CDT Office Visit [facility] [address] [phone] Neil Kent MD [address] [place] [address] 04/16/2025 11:00 AM CDT Virtual Visit [facility] [place] [address] [facility] [address] 4th [place] [phone] Meredith Carrera PA-C [address] [place] [address] documented as of this encounter Visit Diagnoses Not on filedocumented in this encounter Additional Health Concerns Assessment Noted Time PHQ-9 Depression Total Score: 5 10/25/19 25 10:38 AM CDT documented as of this encounter Care Teams Singer Songwriter Relationship Specialty Start Date End Date Esha Grimm PA-C [address] [place] [phone] PCP - General Family Medicine 05/04/23 Diana Desir, [facility] [address] [place] [address] Pharmacist Pharmacist 04/17/21 Rain Galaviz PA-C [address] [place] [address] [address] [place] [address] Physician Shellfish Manager Dermatology 04/28/21 Tavia Wyatt MD [address] [place] [address] [address] [place] [address] Dermatology 07/14/21 Erica Farrell APRN PERSONAL BANKING REPRESENTATIVE [address] [place] [address] Nurse Practitioner Cardiovascular Disease 09/09/21 Rich Barrett MD [address] [place] [address] Physician Ophthalmology 01/21/22 Neil Kent MD 500 [place], [place] [address]155 Dermatology 02/24/22 Diana Desir, [facility] 30[address] [place], [place] [address] Assigned [place] Pharmacist 04/07/22 Livan Sharif MD [address] [place], [place] [address] Cardiovascular Disease 05/14/22 Catherine Cm MD [address] [place], [place] 496715 Cardiovascular Disease 07/21/22 Valery Veronica PA-C 909 [place], [place] [address] Physician Shellfish Manager Dermatology 07/21/22 Brea Quinn APRN PERSONAL BANKING REPRESENTATIVE 500 [place], [place] 96[address] Nurse Practitioner Dermatology 09/21/22 Jelena David OD [address] [facility] [place] [address] Ophthalmology 06/15/23 Esha Grimm PA-C [address] [place] [address] Assigned PCP 07/16/23 Valery Veronica PA-C [address] [place] [address] Physician Shellfish Manager Dermatology 09/19/23 Rey Tay MD [address] [place] [address] MD Gastroenterology 09/20/23 Rocky Zepeda DO [address] [place] [address] Physician Gastroenterology 09/20/23 Philip Dumont MD [address] [place] [address] Physician Ophthalmology 09/22/23 Meredith Carrera PA-C [address] [place] [address] Assigned Gastroenterology Provider 11/01/23 Neil Kent MD [address] [address] Dermatology 11/02/23 [place] [address] [place] [address] Neurological Surgery 12/26/23 Audrey Waite PA-C [address] [place] [address] Physician Shellfish Manager Dermatology 02/28/24 Valery Veronica PA-C [address]549 [address] [place] [address] Physician Shellfish Manager Dermatology 04/10/24 Herminia Hatch MD [facility]5 [place], [place] [address] Assigned Rheumatology Provider 07/02/24 Jelena David, SONJA [address] [facility] [place] [address] Ophthalmology 08/30/24 [place] [address] [place] [address] Assigned Neuroscience Provider 09/30/24 Maru Man PA-C [address] [place] [address] Physician Shellfish Manager Dermatology 10/03/24 Maru Man PA-C [address] [place] [address] Physician Shellfish Manager Dermatology 10/22/24 Jelena David OD [facility]5 [facility] [place] [address] Assigned Surgical Provider 10/31/24 Fabiano Correa NP [address] [place] [address] Assigned Heart and Vascular Provider 11/30/24 documented as of this encounter
--- NOTE | 2024-12-17 22:02 | ED.GENADULT ---
HPI - General Adult General Chief complaint: Shortness of Breath/Dyspnea Stated complaint: short of breath Time Seen by Provider: 12/17/24 22:02 History of Present Illness HPI narrative: CC: Short of Breath, Right Chest Pain, Left Rib Pain pt. diagnosed with pneumnia about 2 weeks ago. finished her abx about 2 days ago. intermittent right side chest pain. denies fevers, n/v, diarrhea 24-year-old woman presenting to the emergency department with concern of shortness of breath and right-sided chest pain. Apparently was diagnosed few weeks ago with influenza what sounds like a pretty intense illness. Subsequently then with pneumonia on the right and finished a 10 day course of antibiotics about 2 days ago. Over the last day she has started to have intermittent random sharp pains in the left low ribs and sometimes in the right upper chest. Not had any fever. She still does cough. Pain is not exactly pleuritic. Not really reproducible to palpation. Not positional. Worried that the pneumonia has returned. In later conversation she has been having this stabbing pain intermittently ever since had pneumonia. Related Data Home Medications ?Medication ?Instructions ?Recorded ?Confirmed omeprazole 40 mg capsule,delayed 40 mg PO DAILY 04/28/22 11/21/24 release lorazepam 0.5 mg tablet 0.5 mg PO DAILY PRN anxiety 03/18/23 11/21/24 metoprolol succinate 25 mg 12.5 mg PO DAILY 10/15/23 11/21/24 tablet,extended release 24 hr paroxetine HCl 40 mg tablet 40 mg PO QAM 10/15/23 11/21/24 ketoconazole 2 % shampoo 1 applic topical 05/02/24 07/13/24 tretinoin 0.05 % topical cream 1 applic topical QPM 05/02/24 10/18/24 (Retin-A) Previous Rx's ?Medication ?Instructions ?Recorded prednisone 20 mg tablet 40 mg (2 x 20 mg) PO DAILY 5 days 12/17/24 #10 tabs Allergies Allergy/AdvReac Type Severity Reaction Status Date / Time vancomycin Allergy Verified 10/18/24 16:21 Review of Systems Status of ROS: Reports: 6 or more systems reviewed and unremarkable except as noted in History and below [facility] Medical History SVT (supraventricular tachycardia) ?I47.10 - Supraventricular tachycardia, unspecified (ICD-10) Social History Smoking Status: Former smoker What tobacco products do you use: cigarettes Smoking quit date/years: <= 15 years ago Do you use any of these nicotine containing products: None and Vaping Products Second hand tobacco smoke exposure: No How often do you have a drink containing alcohol: monthly or less How often do you have six or more drinks on one occasion: Never AUDIT-C Alcohol total score: 1 Non-prescribed substance use: denies use service: No Exam Narrative: Exam Narrative: Pleasant. NAD. Here with daughter and partner. Breathing easily. Lungs are clear. Heart in mildly elevated rate and regular rhythm. No murmur rub or gallop identified. There is not reproducible pain to palpation over the chest wall. Appear to be pleuritic. Abdomen is soft nontender as well. Lower extremities are without edema and without pain to palpation. Const: Vital Signs, click to edit/add: Vital Signs - 24 hr 12/17/24 21:42 12/17/24 23:25 12/17/24 23:25 Temperature 98.1 F 98.1 F 98.1 F Pulse Rate [Right Pulse Oximeter] 95 89 89 Respiratory Rate 18 18 18 Blood Pressure [Ri ght Upper Arm] 132/81 124/74 124/74 Pulse Oximetry 99 99 Oxygen Delivery Me thod Room Air Room Air Documenting provider has reviewed patient's vital signs: yes Course Vital Signs Vital signs: Initial Vital Signs Temperature 98.1 F 12/17/24 21:42 Temperature Source Temporal Artery Scan 12/17/24 21:42 Pulse Rate 95 12/17/24 21:42 Respiratory Rate 18 12/17/24 21:42 Respiratory Effort Normal, Spontaneous, Non-Labored 12/17/24 21:42 Respiratory Depth Normal 12/17/24 21:42 Respiratory Pattern Normal 12/17/24 21:42 Blood Pressure 132/81 12/17/24 21:42 Blood Pressure Mean 98 12/17/24 21:42 Blood Pressure Position Sitting 12/17/24 21:42 Pulse Oximetry 99 12/17/24 21:42 Oxygen Delivery Method Room Air 12/17/24 21:42 Vital Signs Temperature 98.1 F 12/17/24 21:42 Pulse Rate 95 12/17/24 21:42 Respiratory Rate 18 12/17/24 21:42 Blood Pressure 132/81 12/17/24 21:42 Pulse Oximetry 99 12/17/24 21:42 Oxygen Delivery Method Room Air 12/17/24 21:42 Temperature 98.1 F 12/17/24 23:25 Pulse Rate 89 12/17/24 23:25 Respiratory Rate 18 12/17/24 23:25 Blood Pressure 124/74 12/17/24 23:25 Pulse Oximetry 99 12/17/24 23:25 Oxygen Delivery Method Room Air 12/17/24 23:25 Medical Decision Making MDM Narrative Medical decision making narrative: We certainly can check again for pneumonia. Hopeful chest x-ray has had enough time to clear to be useful. Sounds like there was some atelectasis with last diagnosis as well. Not clearly pleuritic but may have some portion of pleuritis or costochondritis. Would screen for PE with a D-dimer. However perc rule would likely rule out pulmonary embolus. Chest x-ray seems to show mild increase in density/infiltrate in the right lower lung. I am not sure if this is simply residual. Likely source of discomfort though. D-dimer is normal. White count is normal. Indication: Chest pain. Recent pneumonia. Technique: Two views of the chest. Comparison: Chest x-ray 05/02/2024. Findings/Impression: The heart is not abnormally enlarged. Mediastinal contours are grossly within normal limits. Minimal patchy right lung base airspace opacification may reflect atelectasis, however infectious/inflammatory process is not definitively excluded in the appropriate clinical context. No pleural effusion or pneumothorax. No acute osseous abnormality. Dictated by Alex Bowen MD @ 12/17/2024 10:50:12 PM I think pneumonia less likely. Stable vitals. See patient discharge plan for further discussion I am not sure I can tell you for sure what this pain is. I am not convinced that it is related to any pneumonia as that isn't terribly evident and brevity and intensity without clear ability to produce by breathing or moving I think suggests that it is not a blood clot for example. I would consider an anti-inflammatory like a few days of prednisone which I sent to the pharmacy for you. This may help any lingering inflammation/congestion that is contributing to some shortness of breath or cough. Certainly return if here pain is becoming more frequent and intense, clearly associated with breathing or lightheadedness. Medical Records Medical records reviewed: Yes I reviewed the patient's medical records Lab Data Lab results reviewed: Yes I reviewed the patient's lab results Labs: Lab Results 12/17/24 Range/Units 22:20 WBC 7.22 (4.50-11.00) K/uL RBC 4.46 (4.00-5.20) m/uL Hgb 11.4 L (12.0-16.0) gm/dL Hct 35.2 (33.0-51.0) % MCV 79 L (80-100) fL MCH 26 (26-34) pg MCHC 32 (32-36) gm/dL RDW Coeff of Naina 13.9 (11.5-15.5) % Plt Count 214 (140-440) K/uL Neut % (Auto) 55.3 (42.0-72.0) % Lymph % (Auto) 31.6 (20-44) % Waller % (Auto) 6.5 (0.0-11.0) % Eos % (Auto) 5.4 (0.0-7.0) % Baso % (Auto) 0.4 (0.0-3.0) % Neut # (Auto) 3.99 (1.7-7.0) K/uL Lymph # (Auto) 2.28 (0.90-2.90) K/uL Waller # (Auto) 0.50 (0.00-0.90) K/UL Eos # (Auto) 0.39 (0.00-0.50) K/uL Baso # (Auto) 0.03 (0.00-0.30) K/uL Abs Immat Gran (auto) 0.06 (0.00-0.30) K/uL Imm/Tot Granulo (auto) 0.8 % D-Dimer Quant (PE/DVT) < 0.27 (0.00-0.50) ug/ml ECG Data Attestation: I personally reviewed and interpreted this ECG as follows: (Normal sinus rhythm rate of 74) Discharge Plan Discharge Clinical Impression: Atypical chest pain Patient Disposition: Home w/ Parent or Adult Condition: Stable Additional Instructions: I am not sure I can tell you for sure what this pain is. I am not convinced that it is related to any pneumonia as that isn't terribly evident and brevity and intensity without clear ability to produce by breathing or moving I think suggests that it is not a blood clot for example. I would consider an anti-inflammatory like a few days of prednisone which I sent to the pharmacy for you. This may help any lingering inflammation/congestion that is contributing to some shortness of breath or cough. Certainly return if here pain is becoming more frequent and intense, clearly associated with breathing or lightheadedness. Prescriptions: New prednisone 20 mg tablet 40 mg PO DAILY 5 Days Qty: 10 0RF No Action tretinoin [Retin-A] 0.05 % cream 1 applic topical QPM ketoconazole 2 % shampoo 1 applic topical lorazepam 0.5 mg tablet 0.5 mg PO DAILY PRN (Reason: anxiety) omeprazole 40 mg capsule,delayed release(DR/EC) 40 mg PO DAILY Patient Comments: TAKE ONE CAPSULE BY MOUTH EVERY DAY . metoprolol succinate 25 mg tablet extended release 24 hr 12.5 mg PO DAILY paroxetine HCl 40 mg tablet 40 mg PO QAM Follow Up/Referrals: Provider,Not a Local [Primary Care Provider, Family Practice] Stand Alone Forms: Dedicated Devices Info Instructions
--- NOTE | 2024-12-17 22:11 | CRLHL7_ITS ---
For Patients: As a result of the Cures Act, medical imaging exams and procedure reports are released immediately into your electronic medical record. You may view this report before your referring provider. If you have questions, please contact your health care provider. Indication: Chest pain. Recent pneumonia. Technique: Two views of the chest. Comparison: Chest x-ray 05/02/2024. Findings/Impression: The heart is not abnormally enlarged. Mediastinal contours are grossly within normal limits. Minimal patchy right lung base airspace opacification may reflect atelectasis, however infectious/inflammatory process is not definitively excluded in the appropriate clinical context. No pleural effusion or pneumothorax. No acute osseous abnormality. Dictated by Alex Bowen MD @ 12/17/2024 10:50:12 PM (Electronically Signed)
[2024-12-17 22:35] LABS: Basophils Absolute Auto 0.03 K/uL (0.00-0.30); Basophils Percent Auto 0.4 % (0.0-3.0); Eosinophils Absolute Auto 0.39 K/uL (0.00-0.50); Eosinophils Percent Auto 5.4 % (0.0-7.0); Hematocrit 35.2 % (33.0-51.0); Hemoglobin* 11.4 gm/dL (12.0-16.0); Immature Granulocytes Abs Auto 0.06 K/uL (0.00-0.30); Immature Granulocytes Pct Auto 0.8 %; Lymphocytes Absolute Auto 2.28 K/uL (0.90-2.90); Lymphocytes Percent Auto 31.6 % (20-44); Mean Corpuscular HGB Conc 32 gm/dL (32-36); Mean Corpuscular Hemoglobin 26 pg (26-34); Mean Corpuscular Volume 79 fL (80-100); Monocytes Percent Auto 6.5 % (0.0-11.0); Neutrophils Absolute Auto 3.99 K/uL (1.7-7.0); Neutrophils Percent Auto 55.3 % (42.0-72.0); Platelet Count* 214 K/uL (140-440); RDW Coefficient of Variation % 13.9 % (11.5-15.5); Red Blood Count 4.46 m/uL (4.00-5.20); White Blood Count* 7.22 K/uL (4.50-11.00)
[2024-12-17 22:37] LABS: Slide Review Reflex No
[2024-12-17 23:05] LABS: D Dimer Quantitative* < 0.27 ug/ml (0.00-0.50)
[2024-12-17 23:25] VITALS: BP 124/74; PULSE 89; RESP 18; TEMP 36.7; O2SAT 99
== END 2024-12-17 23:26 | disposition home or self-care (01) ==
PROVIDERS: Emergency Provider Family Medicine
DX: R00.2 Palpitations (principal)
CPT/HCPCS: 36415; 71046; 85025; 85379; 93005; 99284

== ENCOUNTER 2024-12-31 02:11 | Emergency (ER) | payer MEDICAID, SELFPAY ==
--- OUTSIDE RECORDS SUMMARY | 2024-11-20 11:15 | XMS_ITS | Encounter Summary ---
Author Organization [facility] Address [address] [place] [address] Care Team Providers Care Editorial Writer Name Role Phone Diana Desir Stanislav [facility] Unavailable [phone] Rain Galaviz PA-C Unavailable Tavia Wyatt MD Unavailable Erica Farrell APRN BODY ARTIST Unavailable Rich Barrett MD Unavailable [phone] Neil Kent MD Unavailable ThangKendrickDiana Stanislav [facility] Unavailable [phone] Livan Sharif MD Unavailable Catherine Cm MD Unavailable + Valery Veronica-C Unavailable Brea Quinn APRN BODY ARTIST Unavailable Esha Grimm PA-C Primary Care Provider Radha Lomeli APRN BODY ARTIST Unavailable Jelena David OD Unavailable Esha Grimm PA-C Unavailable [phone] Valery Veronica PA-C Unavailable Rey Tay MD Unavailable Rocky Zepeda DO Unavailable Philip Dumont MD Unavailable DebiMeredith PA-C Unavailable [phone] Neil Kent MD Unavailable Juan Pablo Emmanuel MD Unavailable [phone] Audrey Waite PA-C Unavailable [phone] Valery Veronica PA-C Unavailable Herminia Hatch MD Unavailable Jelena David OD Unavailable Juan Pablo Emmanuel MD Unavailable [phone] Maru Man PA-C Unavailable Maru Man PA-C Unavailable Jelena David OD Unavailable Reason for Referral * Diagnostic Imaging XR (Routine) - Pending Review Specialty Diagnoses / Procedures Referred By Qian mayers Referred To Contact Radiology. Diagnoses Acute cough Procedures XR Chest 2 Views Estephania Flannery NP [address] [place] [id number] Phone: tel: fax: Referral ID Status Reason Start Date Expiration Date V isits Requested Visits Authorized [id number] Pending Review 11/20/2024 11/20/2025 1 1 Reason for Visit * Reason Comments Cough Cough x 2 days. When she coughs her back and chest aches. She has body aches, sinus/face pressure. She also has pain in her lower abdomen that started at the same time as cough. She did have quite a bit of diarrhea a few days before the cough started. Encounter Details Date Type Department Care Team (Late st Contact Info) Description 11/20/2024 11:15 AM CDT Office Visit [facility] [place] [address] [place] [address] Estephania Flannery NP [address] [place] [id number] Yeast infection of the vagina (Primary Dx); Fever, unspecified; Acute cough; Screening examination for STI; Dysuria; Viral URI with cough; Irregular bowel habits Social History Tobacco Use Types Packs/Day Years [...] Answer Date Recorded PHQ-2 Score 1 10/24/2024 [facility] [place] of Occupat ional Health - Occupational Stress [...] exercise at this level? 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 Gender Identity Female 03/02/2021 5:45 PM CDT Sexual Orientation Straight 02/28/2020 12 :51 AM CDT documented as of this encounter Last Filed Vital Signs Vital Sign Reading Time Taken Comments Blood Pressure 128/78 11/20/2024 10:36 AM CDT Pulse 96 11/20/2024 10:36 AM CDT Temperature 37.3 C (99.2 F) 11/20/2024 10:36 AM CDT Respiratory Rate 16 11/20/2024 10:36 AM CDT Oxygen Saturation 100% 11/20/2024 10:36 AM CDT Inhaled Oxygen Concentration - - Weight 93.1 kg (205 lb 4.8 oz) 11/20/2024 10:36 AM CDT Height 167.6 cm (5' 6) 11/20/2024 10:36 AM CDT Body Mass Index 33.14 11/20/2024 10:36 AM CDT documented in this encounter Patient Instructions * Patient Instructions* Estephania Flannery NP - 11/20/2024 11:15 AM CDT Wet prep positive for vaginal yeast infection - fluconazole (Diflucan) 150 mg one tablet every 72 hours x 2 Your lab shows a yeast infection. Risk factors include antibiotics and certain medical conditions. Take medication as prescribed. Side effects discussed. Conservative measures include avoid sexual intercourse until infection clears, avoid tight fitting clothes, try to keep skin clean and dry. I have sent in Diflucan for you to your pharmacy. Please also have daily probiotic and romanian yogurtto help your symptoms. A yeast infection is caused by a normally found fungus called eros. U/A no signs of infection or blood Influenza A/B negative COVID test pending - will only call if positive Chest xray negative for - pneumonia or other acute process WBC - normal STI testing pending - will only call if positive Increase fluids with water, Pedialyte, Gatorade, or rehydrating beverages. Alternate Tylenol and Ibuprofen as needed for aches, pains or fever. If needed, follow soft food diet. Rest as much as possible. Use OTC cough and cold medication. Run humidifier at night. Have warm tea or water with honey. Follow up if symptoms persist or worsen. If you have any red flag symptoms go to the Emergency Department. This usually can last 7-10 days for upper respiratory viral illnesses. documented in this encounter Progress Notes * Lauren Price CMA - 11/20/2024 11:15 AM CDT Urgent Care Clinic Visit Chief Complaint Patient presents with Cough Cough x 2 days. When she coughs her back and chest aches. She has body aches, sinus/face pressure. She also has pain in her lower abdomen that started at the same time as cough. She did have quite a bit of diarrhea a few days before the cough started. 11/20/2024 10:36 AM Additional Questions Roomed by Kaylee Pre-Provider Visit Orders- Influenza Is this currently Influenza testing season?: Yes Does the patient present with a fever and either bodyaches, fatigue, or cough that have been present less than 48 hours? Yes * Estephania Flannery NP - 11/20/2024 11:15 AM CDT Assessment & Plan ICD-10-CM 1. Yeast infection of the vagina B37.31 fluconazole (DIFLUCAN) 150 MG tablet 2. Fever, unspecified R50.9 Influenza A & B Antigen COVID-19 Virus (Coronavirus) by PCR Nose WBC with Diff WBC with Diff 3. Acute cough R05.1 XR Chest 2 Views WBC with Diff WBC with Diff 4. Screening examination for STI Z11.3 Treponema Abs w Reflex to RPR and Titer NEISSERIA GONORRHOEA PCR CHLAMYDIA TRACHOMATIS PCR HIV Antigen Antibody Combo Treponema Abs w Reflex to RPR and Titer NEISSERIA GONORRHOEA PCR CHLAMYDIA TRACHOMATIS PCR HIV Antigen Antibody Combo 5. Dysuria R30.0 Wet prep - Clinic Collect UA with Microscopic reflex to Culture - Clinic Collect UA Microscopic with Reflex to Culture 6. Viral URI with cough J06.9 TSH with free T4 reflex Tissue transglutaminase dennis IgA and IgG IgA CRP inflammation Calprotectin Feces 7. Irregular bowel habits R19.8 TSH with free T4 reflex Tissue transglutaminase dennis IgA and IgG IgA CRP inflammation Calprotectin Feces Vaginal yeast infection Fluconazole 150 mg one tablet every 72 hours x 2 Viral URI Symptomatic treatment. Work note given. STI screening Will only call if positive results Patient Instructions Wet prep positive for vaginal yeast infection - fluconazole (Diflucan) 150 mg one tablet every 72 hours x 2 Your lab shows a yeast infection. Risk factors include antibiotics and certain medical conditions. Take medication as prescribed. Side effects discussed. Conservative measures include avoid sexual intercourse until infection clears, avoid tight fitting clothes, try to keep skin clean and dry. I have sent in Diflucan for you to your pharmacy. Please also have daily probiotic and romanian yogurtto help your symptoms. A yeast infection is caused by a normally found fungus called eros. U/A no signs of infection or blood Influenza A/B negative COVID test pending - will only call if positive Chest xray negative for - pneumonia or other acute process WBC - normal STI testing pending - will only call if positive Increase fluids with water, Pedialyte, Gatorade, or rehydrating beverages. Alternate Tylenol and Ibuprofen as needed for aches, pains or fever. If needed, follow soft food diet. Rest as much as possible. Use OTC cough and cold medication. Run humidifier at night. Have warm tea or water with honey. Follow up if symptoms persist or worsen. If you have any red flag symptoms go to the Emergency Department. This usually can last 7-10 days for upper respiratory viral illnesses. Patient agreed to the treatment plan and verbalized understanding. Results for orders placed or performed in visit on 11/20/24 XR Chest 2 Views Status: None Narrative EXAM: XR CHEST 2 VIEWS LOCATION: [facility] DATE: 11/20/2024 INDICATION: Acute cough COMPARISON: 10/28/2024 Impression IMPRESSION: Negative chest. Results for orders placed or performed in visit on 11/20/24 UA with Microscopic reflex to Culture - Clinic Collect Status: Normal Specimen: Urethra; Urine Result Value Ref Range Color Urine Yellow Colorless, Straw, Light Yellow, Yellow Appearance Urine Clear Clear Glucose Urine Negative Negative mg/dL Bilirubin Urine Negative Negative Ketones Urine Negative Negative mg/dL Specific [place] Urine 1.015 1.003 - 1.035 Blood Urine Negative Negative pH Urine 7.0 5.0 - 7.0 Protein Albumin Urine Negative Negative mg/dL Urobilinogen Urine 0.2 0.2, 1.0 E.U./dL Nitrite Urine Negative Negative Leukocyte Esterase Urine Negative Negative WBC and Differential Status: None Result Value Ref Range WBC Count 5.2 4.0 - 11.0 10e3/uL % Neutrophils 66 % % Lymphocytes 20 % % Monocytes 10 % % Eosinophils 4 % % Basophils 1 % % Immature Granulocytes 0 % Absolute Neutrophils 3.4 1.6 - 8.3 10e3/uL Absolute Lymphocytes 1.0 0.8 - 5.3 10e3/uL Absolute Monocytes 0.5 0.0 - 1.3 10e3/uL Absolute Eosinophils 0.2 0.0 - 0.7 10e3/uL Absolute Basophils 0.0 0.0 - 0.2 10e3/uL Absolute Immature Granulocytes 0.0 <=0.4 10e3/uL UA Microscopic with Reflex to Culture Status: Abnormal Result Value Ref Range Bacteria Urine Few (A) None Seen /HPF RBC Urine None Seen 0-2 /HPF /HPF WBC Urine None Seen 0-5 /HPF /HPF Narrative Urine Culture not indicated Influenza A & B Antigen Status: Normal Specimen: Nose; Swab Result Value Ref Range Influenza A antigen Negative Negative Influenza B antigen Negative Negative Narrative Test results must be correlated with clinical data. If necessary, results should be confirmed by a molecular assay or viral culture. Wet prep - Clinic Collect Status: Abnormal Specimen: Urethra; Swab Result Value Ref Range Trichomonas Absent Absent Yeast Present (A) Absent Clue Cells Absent Absent WBCs/high power field 1+ (A) None WBC with Diff Status: None Narrative The following orders were created for panel order WBC with Diff. Procedure Abnormality Status --------- ------ WBC and Differential[[id number]] Final result Please view results for these tests on the individual orders. I independently visualized the xray: No consolidation or infiltrate noted on xray. No other acute process seen. Please see radiologist's read above. Dario Alvarez is a 24 year old female who presents to clinic today for the following health issues: Chief Complaint Patient presents with Cough Cough x 2 days. When she coughs her back and chest aches. She has body aches, sinus/face pressure. She also has pain in her lower abdomen that started at the same time as cough. She did have quite a bit of diarrhea a few days before the cough started. HPI Patient started having symptoms after three 12 hour shifts. She has had nasal congestion and chest congestion along with a cough. Patient states she has myalgias and arthralgias. She states her lowerabdominal discomfort is sometimes when she has a UTI or bacterial vaginosis. Patient states she hashad a more unusual vaginal odor over the last couple of days. Diarrhea for 2 days a week ago but this has resolved. Patient states she has concerns that her sexual partner had another sexual partner she did not know about at the beginning of their relationship and would like to have STI testing today. Patient has IUD. Review of Systems Constitutional: Positive for chills, fatigue and fever. HENT: Positive for congestion, ear pain, postnasal drip, rhinorrhea, sinus pressure, sinus pain andsore throat. Eyes: Positive for discharge. Negative for photophobia, pain, redness and visual disturbance. Respiratory: Positive for cough and wheezing. Cardiovascular: Negative. Gastrointestinal: Lower abdominal discomfort. Diarrhea lasting approximately 2 days and ended over 4 days ago. No nausea or vomiting. Genitourinary: Positive for dysuria. Negative for flank pain, frequency, hematuria, pelvic pain, urgency and vaginal pain. Musculoskeletal: Positive for arthralgias and myalgias. Skin: Negative for rash. 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) 2021-02: Moderate major depression (H) 2021-01: Term 2020-12: Encounter for triage in patient 2020-09: KALYN (generalized anxiety disorder) 2020-11: Asthma 2020-05: Right ureteral stone 2020-05: Left ureteral stone 2020-02: Head ache 2019-04: Seizure (H) 2019-04: Depressed 2019-04: Anxiety 2019-04: Tobacco abuse counseling 2019-04: Psoriasis Past Medical History: Diagnosis Date Anxiety Chronic kidney disease stones, history of infections Depressive disorder Gastroesophageal reflux disease Psoriasis Seizure (H) 05/02/2019 no seizure since approx 2017 SVT (supraventricular tachycardia) Social History Tobacco Use Smoking status: Former Current packs/day: 0.00 Average packs/day: 1 pack/day for 4.0 years (4.0 ttl pk-yrs) Types: Cigarettes, Other Quit date: 12/07/2019 Years since quittin.9 Passive exposure: Past Smokeless tobacco: Never Tobacco comments: 1 year 4 months tobacco free Substance Use Topics Alcohol use: Not Currently Comment: social Objective BP 128/78 Pulse 96 Temp 99.2 ??F (37.3 ??C) (Tympanic) Resp 16 Ht 1.676 m (5' 6) Wt 93.1kg (205 lb 4.8 oz) LMP (LMP Unknown) SpO2 100% BMI 33.14 kg/m?? Physical Exam Vitals and nursing note reviewed. Constitutional: Appearance: Normal appearance. HENT: Head: Normocephalic and atraumatic. Right Ear: Tympanic membrane and ear canal normal. Left Ear: Tympanic membrane and ear canal normal. Nose: Congestion and rhinorrhea (Clear nasal drainage) present. Mouth/Throat: Mouth: Mucous membranes are moist. Pharynx: Oropharynx is clear. No oropharyngeal exudate or posterior oropharyngeal erythema. Eyes: General: Right eye: No discharge. Left eye: No discharge. Extraocular Movements: Extraocular movements intact. Conjunctiva/sclera: Conjunctivae normal. Pupils: Pupils are equal, round, and reactive to light. Cardiovascular: Rate and Rhythm: Normal rate and regular rhythm. Heart sounds: Normal heart sounds. Pulmonary: Effort: Pulmonary effort is normal. Breath sounds: Normal breath sounds. Abdominal: General: Abdomen is flat. Bowel sounds are normal. Palpations: Abdomen is soft. Musculoskeletal: Cervical back: Normal range of motion and neck supple. Lymphadenopathy: Cervical: No cervical adenopathy. Neurological: General: No focal deficit present. Mental Status: She is alert and oriented to person, place, and time. Estephania Flannery NP documented in this encounter Plan of Treatment Upcoming Encounters Date Type Department Care Team (Latest Contact Info) Description 01/02/2025 1:10 PM CDT Ancillary Procedure [facility] [address] [place] [phone] Lauren Claudio PA-C [id number] [place] [phone] 01/17/2025 10:00 AM CDT Appointment [facility] [place] [phone] Lauren Claudio PA-C [id number] [place] [phone] 04/16/2025 11:00 AM CDT Virtual Visit [facility] [address] [place] [phone] Meredith Carrera PA-C [address] [place] [phone] documented as of this encounter Procedures Procedure Name Priority Date/Time Associated Diagnosis Comments CALPROTECTIN FECES Routine 12/17/2024 2: 53 PM CDT Viral URI with cough Irregular bowel habits TSH WITH FREE T4 REFLEX Routine 11/21/19 3:16 PM CDT Viral URI with cough Irregular bowel habits CRP INFLAMMATION Routine 11/20/2024 3:16 PM CDT Viral URI with cough Irregular bowel habits HIV ANTIGEN ANTIBODY COMBO Routine 11/20/2024 3:15 PM CDT Screening examination for STI UA MICROSCOPIC WITH REFLEX TO CULTURE Routine 11/20/2024 11:45 AM CDT Dysuria ROUTINE UA WITH MICROSCOPIC REFLEX TO CULTURE Routine 11/20/2024 11:45 AM CDT Dysuria WET PREPARATION Routine 11/20/2024 11:45 AM CDT Dysuria NEISSERIA GONORRHOEAE PCR Routine 11/20/2024 11:45 AM CDT Screening examination for STI CHLAMYDIA TRACHOMATIS PCR Routine 11/20/2024 11:45 AM CDT Screening examination for STI WBC AND DIFFERENTIAL Routine 11/20/2024 11:41 AM CDT Fever, unspecified Acute cough WBC AND DIFFERENTIAL Routine 11/20/2024 11:41 AM CDT Fever, unspecified Acute cough TREPONEMA ABS W REFLEX TO RPR AND TITER Routine 11/20/2024 11:40 AM CDT Screening examination for STI TISSUE TRANSGLUTAMINASE DENNIS IGA AND IGG Routine 11/20/2024 11:40 AM CDT Viral URI with cough Irregular bowel habits IGA Routine 11/20/2024 11:40 AM CDT Viral URI with cough Irregular bowel habits COVID-19 VIRUS (CORONAVIRUS) BY PCR Routine 11/20/2024 10:45 AM CDT Fever, unspecified INFLUENZA A/B ANTIGEN Routine 11/20/2024 10:45 AM CDT Fever, unspecified documented in this encounter Results * (ABNORMAL) Calprotectin Feces (12/17/2024 2:53 PM CDT) Calprotectin Feces 120.0(H) 0.0 - 49.9 mg/kg 12/19/2024 10:57 AM CDT SPECIALTY CORE/PROT/END O Comment:Borderline result, p lease re-evaluate and recollect a new sample in 4-6 weeks. Stool RECTAL CONTENTS / Unknown Non-blood Collection / Unknown 12/17/2024 2:53 PM CDT 12/17/2024 2:53 PM CDT Meredithnahed Torrezt PA-C LAB - STOOLS ORDERABLES Fin al Result [facility] SPECIALTY CORE/PROT/ENDO [facility] Specialty Core/Prot/Endo [address] [facility] [address] Building, Room [address] * CRP inflammation (11/20/2024 3:16 PM CDT) CRP Inflammation 3.88 <5.00 mg/L 11/22/19 1:11 PM CDT PH LABORATORY Blood BLOOD SPECIMEN / Unknown Venipuncture / Unknown 11/20/2024 3:16 PM CDT 11/20/2024 3:16 PM CDT Meredithnahed Torrezt PA-C LAB - BLOOD ORDERABLES Shira l Result PH LABORATORY [facility] [address] [place] [address] Lab (Main level, no room number) [address] * TSH with free T4 reflex (11/20/2024 3:16 PM CDT) TSH 1.55 0.30 - 4.20 uIU/mL 11/21/2024 1:11 PM CDT PH LABORATORY Blood BLOOD SPECIMEN / Unknown Venipuncture / Unknown 11/20/2024 3:16 PM CDT 11/20/2024 3:16 PM CDT Meredith Torrezt PA-C LAB - BLOOD ORDERABLES Shira l Result PH LABORATORY [facility] [address] [place] [address] Lab (Main level, no room number) [place] [id number] * HIV Antigen Antibody Combo (11/20/2024 3:15 PM CDT) HIV Antigen Antibody Combo Nonreactive Nonreactive 11/20/2024 10:39 PM CDT U LABORATORY Comment:Negative HIV-1 p24 [...] SPECIMEN / Unknown Venipuncture / Unknown 11/20/2024 3:15 PM CDT 11/20/2024 3:15 PM CDT Estephania Flannery NP LAB - BLOOD ORDERABLES Shira l Result Performing Organization Address City/[facility]/ZIP Co de Phone Number U LABORATORY [facility] Core Lab [address] [facility], [address] [place], [place] [phone] * (ABNORMAL) UA Microscopic with Reflex to Culture (11/20/2024 11:45 AM CDT) Pathologist [facility] Bacteria Urine Few(A) None Seen /HPF REINA 11/20/2024 11:58 AM CDT LABORATORY RBC Urine None Seen 0-2 /HPF /HPF REINA 11/20/2024 11:58 AM CDT LABORATORY WBC Urine None Seen 0-5 /HPF /HPF REINA 11/20/2024 11:58 AM CDT LABORATORY Urine URETHRAL STRUCTURE / Unknown Non-blood Collection / Unknown 11/20/2024 11:45 AM CDT 11/20/2024 11:45 AM CDT Narrative LABORATORY - 11/20/2024 11:58 AM CDT Urine Culture not indicated Estephania Flannery NP LAB - URINE ORDERABLES Shira l Result LABORATORY [facility] Lab [address] [facility] Lab (no room number, 1st floor of clinic) [place] [address] * UA with Microscopic reflex to Culture - Clinic Collect (11/20/2024 11:45 AM CDT) Color Urine Yellow Colorless, Straw, Light Yellow, Yellow 11/20/2024 11:47 AM CDT LABORATORY Appearance Urine Clear Clear 11/21/19 11:47 AM CDT LABORATORY Glucose Urine Negative Negative mg/dL 11/20/2024 11:47 AM CDT LABORATORY Bilirubin Urine Negative Negative 11:47 AM CDT LABORATORY Ketones Urine Negative Negative mg/dL 11/20/2024 11:47 AM CDT LABORATORY Specific [place] Urine 1.015 1.003 - 1.035 11/20/2024 11:47 AM CDT LABORATORY Blood Urine Negative Negative 11/20/2024 11:47 AM CDT LABORATORY pH Urine 7.0 5.0 - 7.0 11/20/2024 11:47 AM CDT LABORATORY Protein Albumin Urine Negative Negative mg/dL 11/20/2024 11:47 AM CDT LABORATORY Urobilinogen Urine 0.2 0.2, 1.0 E.U./dL 11/20/2024 11:47 AM CDT LABORATORY Nitrite Urine Negative Negative 11/20/2024 11:47 AM CDT LABORATORY Leukocyte Esterase Urine Negative Negative 11/20/2024 11:47 AM CDT LABORATORY Urine URETHRAL STRUCTURE / Unknown Non-blood Collection / Unknown 11/20/2024 11:45 AM CDT 11/20/2024 11:45 AM CDT us Estephania Flannery MIXER WHIPPED TOPPING LAB - URINE ORDERABLES Shira l Result LABORATORY [facility] [address] [facility] (no room number, 1st floor of clinic) [place] [address], [facility] * (ABNORMAL) Wet prep - Clinic Collect (11/20/2024 11:45 AM CDT) Trichomonas Absent Absent REINA 11/20/2024 11:58 AM CDT [facility] LAB[facility] Yeast Present(A) Absent REINA 11/20/2024 11:58 AM CDT [facility] LAB[facility] Clue Cells Absent Absent REINA 11/20/2024 11:58 AM CDT [facility] LAB[facility] WBCs/high power field 1+(A) None REINA 11/20/2024 11:58 AM CDT [facility] Swab URETHRAL STRUCTURE / Unknown Non-blood Collection / Unknown 11/20/2024 11:45 AM CDT 11/20/2024 11:45 AM CDT Estephania Flannery [employer] LAB - MICRO GENERAL ORDERAB LES Final Result [facility] LAB[facility] [address] [facility] (no room number, 1st floor of clinic) [place] [address], [facility] * CHLAMYDIA TRACHOMATIS PCR (11/20/2024 11:45 AM CDT) Chlamydia trachomatis Negative Negative 11/21/2024 1:52 PM CDT [facility] Comment:A negative result by park keeper mediated amplification does not preclude the presence of C. trachomatis infection because results are dependent on proper and adequate collection, absence of inhibitors and sufficient rRNA to be detected. Chlamydia trachomatis Specimen Source Urine, Voided 11/21/2024 1:52 PM CDT [facility] Urine URETHRAL STRUCTURE / Unknown Non-blood Collection / Unknown 11/20/2024 11:45 AM CDT 11/20/2024 11:45 AM CDT Estephania Flannery NP LAB - MICRO GENERAL ORDERAB LES Final Result [facility] Inf. Diseases Diag. Lab [address] [facility] [place] [address], [facility] * NEISSERIA GONORRHOEA PCR (11/20/2024 11:45 AM CDT) Neisseria gonorrhoeae Negative Negative 11/21/2024 1:52 PM CDT [facility] Comment:Negative for N. gono rrhoeae rRNA by park keeper mediated amplification. A negative result by park keeper mediated amplification does not preclude the presence of C. trachomatis infection because results are dependent on proper and adequate collection, absence of inhibitors and sufficient rRNA to be detected. Neisseria gonorrhoeae Specimen Source Urine, Voided 11/21/2024 1:52 PM CDT [facility] Urine URETHRAL STRUCTURE / Unknown Non-blood Collection / Unknown 11/20/2024 11:45 AM CDT 11/20/2024 11:45 AM CDT us Estephania Flannery NP LAB - MICRO GENERAL ORDERAB LES Final Result [facility] Inf. Diseases Diag. Lab [address] [facility], [address] [place] [address] * WBC and Differential (11/20/2024 11:41 AM CDT) WBC Count 5.2 4.0 - 11.0 10e3/uL 11/20/2024 11:47 AM CDT [facility] % Neutrophils 66 % 11/20/2024 11:47 AM CDT [facility] % Lymphocytes 20 % 11/20/2024 11:47 AM CDT [facility] % Monocytes 10 % 11/20/2024 11:47 AM CDT [facility] % Eosinophils 4 % 11/20/2024 11:47 AM CDT [facility] % Basophils 1 % 11/20/2024 11:47 AM CDT [facility] % Immature Granulocytes 0 % 11/20/2024 11:47 AM CDT [facility] Absolute Neutrophils 3.4 1.6 - 8.3 10e3/uL 11/20/2024 11:47 AM CDT [facility] Absolute Lymphocytes 1.0 0.8 - 5.3 10e3/uL 11/20/2024 11:47 AM CDT [facility] Absolute Monocytes 0.5 0.0 - 1.3 10e3/uL 11/20/2024 11:47 AM CDT [facility] Absolute Eosinophils 0.2 0.0 - 0.7 10e3/uL 11/20/2024 11:47 AM CDT [facility] Absolute Basophils 0.0 0.0 - 0.2 10e3/uL 11/20/2024 11:47 AM CDT [facility] Absolute Immature Granulocytes 0.0 <=0.4 10e3/uL 11/20/2024 11:47 AM CDT [facility] Blood BLOOD SPECIMEN / Unknown Venipuncture / Unknown 11/20/2024 11:41 AM CDT 11/20/2024 11:41 AM CDT Estephania Flannery NP LAB - BLOOD ORDERABLES Shira l Result LABORATORY [facility] [place] [facility] [address] [facility] (no room number, 1st floor of clinic) [place] [address] * IgA (11/20/2024 11:40 AM CDT) Immunoglobulin A 146 84 - 499 mg/dL 11/21/2024 7:42 AM CDT SPECIALTY CORE/PROT/END O Blood BLOOD SPECIMEN / Unknown Venipuncture / Unknown 11/20/2024 11:40 AM CDT 11/20/2024 11:40 AM CDT Meredith Carrera PA-C LAB - BLOOD ORDERABLES Shira l Result SPECIALTY CORE/PROT/ENDO Specialty Core/Prot/Endo [address] [facility], Room [address] * Tissue transglutaminase dennis IgA and IgG (11/20/2024 11:40 AM CDT) Tissue Transglutaminase Antibody IgA 0.4 <7.0 U/mL 11/23/2024 4:03 PM CDT SPECIALTY CORE/PROT/END O Comment:Negative- The tTG-Ig A [...] 11:40 AM CDT 11/20/2024 11:40 AM CDT Meredith Carrera PA-C LAB - BLOOD ORDERABLES Shira l Result [facility] SPECIALTY CORE/PROT/ENDO [facility] Specialty Core/Prot/Endo [address] [facility] Unit [facility], Room [address] * Treponema Abs w Reflex to RPR and Titer (11/20/2024 11:40 AM CDT) Treponema Antibody Total Nonreactive Nonreactive 11/20/2024 9:56 PM CDT SPECIALTY LABS Blood BLOOD SPECIMEN / Unknown Venipuncture / Unknown 11/20/2024 11:40 AM CDT 11/20/2024 11:40 AM CDT Estephania Flannery NP LAB - BLOOD ORDERABLES Shira l Result SPECIALTY CORE/PROT/ENDO Specialty Core/Prot/Endo [address] [facility] Unit [facility], Room [address] SPECIALTY LABS Specialty Lab [address] [facility] Unit [facility], Room [address] * XR Chest 2 Views (11/20/2024 11:20 AM CDT) Anatomical Region Laterality Modality Chest Computed Radiogr aphy 11/20/2024 11:2 0 AM CDT Impressions 11/20/2024 11:22 AM CDT IMPRESSION: Negative chest. Narrative 11/20/2024 11:22 AM CDT EXAM: XR CHEST 2 VIEWS LOCATION: [facility] DATE: 11/20/2024 INDICATION: Acute cough COMPARISON: 10/28/2024 Procedure Note Robert Ramos MD - 11/20/2024 EXAM: XR CHEST 2 VIEWS LOCATION: [facility] DATE: 11/20/2024 INDICATION: Acute cough COMPARISON: 10/28/2024 IMPRESSION: Negative chest. Estephania Flannery MIXER WHIPPED TOPPING IMG DIAGNOSTIC IMAGING [facility]DE SHARON Final Result * COVID-19 Virus (Coronavirus) by PCR Nose (11/20/2024 10:45 AM CDT) SARS CoV2 PCR Negative Negative 11/21/2024 11:23 AM CDT [facility] Comment:NEGATIVE: SARS-CoV-2 (COVID-19) RNA not detected, presumed negative. Swab NASAL STRUCTURE / Unknown Non-blood Collection / Unknown 11/20/2024 10:45 AM CDT 11/20/2024 10:47 AM CDT Narrative [facility] - 11/21/2024 11:23 AM CDT Testing was performed using the Aptima SARS-CoV-2 Assay on the [employer] Instrument System. Additional information about this Emergency [...] COVID-19. This test was validated by the [facility] Infectious Diseases Diagnostic Laboratory. This laboratory is certified under the Clinical Laboratory Improvement Amendments of 1988 (CLIA-88) as qualified to perform high complexity laboratory testing. Amaris Pascal PA-C LAB - MICRO GENERAL ORD ERABLES Final Result [facility] Inf. Diseases Diag. Lab [address] [facility], [address] [place] [address], [facility] * Influenza A & B Antigen (11/20/2024 10:45 AM CDT) Influenza A antigen Negative Negative 11/20/2024 11:22 AM CDT LABORATORY Influenza B antigen Negative Negative 11/20/2024 11:22 AM CDT LABORATORY Swab NASAL STRUCTURE / Unknown Non-blood Collection / Unknown 11/20/2024 10:45 AM CDT 11/20/2024 10:47 AM CDT Narrative [facility] - 11/20/2024 11:22 AM CDT Test results must be correlated with clinical data. If necessary, results should be confirmed by a molecular assay or viral culture. Amaris Pascal PA-C LAB - MICRO GENERAL ORD ERABLES Final Result LABORATORY [facility] [place] [facility] [address] [facility] (no room number, 1st floor of clinic) [place] [address], [facility] documented in this encounter Visit Diagnoses Diagnosis Yeast infection of the vagina- Primary Candidiasis of vulva and vagina Fever, unspecified Acute cough Screening examination for STI Dysuria Viral URI with cough Acute upper respiratory infections of unspecified site Irregular bowel habits Other specified disorder of intestines Acute cough documented in this encounter Additional Health Concerns Infection Onset Date Last Indicated Resolved Time Rule Out COVID-19 11/20/2024 11/20/2024 11/21/2024 11:23 AM CDT Assessment Noted Time PHQ-9 Depression Total Score: 5 10/25/19 25 10:38 AM CDT documented as of this encounter Care Teams Editorial Writer Relationship Specialty Start Date End Date Esha Grimm PA-C [address] [place] [address] PCP - General Family Medicine 05/04/23 Diana Desir [facility] [address] [place], [place] [phone] Pharmacist Pharmacist 04/17/21 Rain Galaviz PA-C [address] [place] [address] [address] [place] [id number] Physician Living Coach Dermatology 04/28/21 Tavia Wyatt MD [address] [place] [address] DR [address] Lara [place] [phone] Dermatology 07/14/21 Erica Farrell APRN BODY ARTIST [address] [place] [address] Nurse Practitioner Cardiovascular Disease 09/09/21 Rich Barrett MD [address] [place] [address] Physician Ophthalmology 01/21/22 Neil Kent MD [address] [place], [place] [phone] Dermatology 02/24/22 Diana Desir, [facility] [address] [place] [address] Assigned MTM Pharmacist 04/07/22 Livan Sharif MD [address] [place] [id number] Cardiovascular Disease 05/14/22 Catherine Cm MD [address] [place] [id number] Cardiovascular Disease 07/21/22 Valery Veronica, [place] [address] [place] [address] [phone] Physician Living Coach Dermatology 07/21/22 Brea Quinn APRN BODY ARTIST [address] [place] [address] [phone] Nurse Practitioner Dermatology 09/21/22 Radha Lomeli APRN BODY ARTIST [address] [id number] Assigned Heart and Vascular Provider 05/28/23 11/29/24 Jelena David OD [address] [facility] [address] [place] [phone] MD Ophthalmology 06/15/23 Esha Grimm PA-C [address] [place] [phone] Assigned PCP 07/16/23 Valery Veronica PA-C [address] [place] [address] [phone] Physician Living Coach Dermatology 09/19/23 Rey Tay MD [address] [place] [address] [phone] Gastroenterology 09/20/23 Rocky Zepeda DO [address] [place] [address] Physician Gastroenterology 09/20/23 Philip Dumont MD [address] [place] [address] Physician Ophthalmology 09/22/23 Meredith Carrera PA-C [address] [place] [address] Assigned Gastroenterology Provider 11/01/23 Neil Kent MD [address] [address] Dermatology 11/02/23 [place] [address] [place], [place] 177[address] Neurological Surgery 12/26/23 Audrey Waite PA-C [address] [place] [address] Physician Living Coach Dermatology 02/28/24 Valery Veronica PA-C [id number] [place] [address] Physician Living Coach Dermatology 04/10/24 Herminia Hatch MD [address] [place] [address] [phone] Assigned Rheumatology Provider 07/02/24 [place] [address] [place] [address] [place] [address] Ophthalmology 08/30/24 [place] [address] [place] [address] Assigned Neuroscience Provider 09/30/24 Maru Man PA-C [address] [place] [address] Physician Living Coach Dermatology 10/03/24 Maru Man PA-C [address] [place] [address] Physician Living Coach Dermatology 10/22/24 Jelena David OD [address] [place] [address] [place] [phone] Assigned Surgical Provider 10/31/24 documented as of this encounter
--- OUTSIDE RECORDS SUMMARY | 2024-11-20 11:20 | XMS_ITS | Encounter Summary ---
Author Organization [facility] Address [address] [place] [address] Care Team Providers Care Payroll Accounting Specialist Name Role Phone Diana Desir Stanislav [facility] Unavailable Rain Galaviz PA-C Unavailable [phone] Tavia Wyatt MD Unavailable Erica Farrell APRN RESOURCE ECONOMIST Unavailable Rich Barrett MD Unavailable [phone] Neil [place] MD Unavailable ThangKendrickDiana Stanislav [facility] Unavailable [phone] Livan Sharif MD Unavailable Catherine Cm MD Unavailable + Valery Veronica-C Unavailable Brea Quinn APRN RESOURCE ECONOMIST Unavailable Esha Grimm PA-C Primary Care Provider Radha Lomeli APRN RESOURCE ECONOMIST Unavailable Jelena David OD Unavailable Esha Grimm PA-C Unavailable Valery Veronica PA-C Unavailable Rey Tay MD Unavailable Duane Rocky Unavailable Philip Dumont MD Unavailable LoreMeredith mayers PA-C Unavailable Neil Kent MD Unavailable Juan Pablo Emmanuel MD Unavailable Audrey Waite PA-C Unavailable Valery Veronica PA-C Unavailable Herminia Hatch MD Unavailable Jelena David OD Unavailable Juan Pablo Emmanuel MD Unavailable Maru Man PA-C Unavailable Maru Man PA-C Unavailable Jelena David OD Unavailable Reason for Visit * Diagnostic Imaging XR (Routine) - Pending Review Specialty Diagnoses / Procedures Referred By Qian mayers Referred To Contact Radiology. Diagnoses Acute cough Procedures XR Chest 2 Views Estephania Flannery NP [address] [place] [address] Phone: tel: fax: Referral ID Status Reason Start Date Expiration Date V isits Requested Visits Authorized [id number] Pending Review 11/20/2024 11/20/2025 1 1 Encounter Details Date Type Department Care Team (Late st Contact Info) Description 11/20/2024 11:20 AM CDT Ancillary Procedure [facility] [address] [place] [address] Estephania Flannery NP [address] [place] [address] Acute cough Social History Tobacco Use [...] Answer Date Recorded PHQ-2 Score 1 10/24/2024 [facility] of Occupat ional Health [...] exercise at this level? 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 Gastroenterology Clinic [address] [place] [phone] Meredith Carrera PA-C [address] [place] [address] documented as of this encounter Procedures Procedure [...] CDT EXAM: XR CHEST 2 VIEWS LOCATION: [facility] DATE: 11/20/2024 INDICATION: Acute cough COMPARISON: 10/28/2024 Procedure Note Robert Ramos MD - 11/20/2024 EXAM: XR CHEST 2 VIEWS LOCATION: [facility] DATE: 11/20/2024 INDICATION: Acute cough COMPARISON: 10/28/2024 IMPRESSION: Negative chest. 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 DEVELOPER IMG DIAGNOSTIC IMAGING DONYA HERRERA Final Result documented in this encounter Visit Diagnoses Diagnosis Acute cough documented in this encounter Additional Health Concerns Infection Onset Date Last Indicated Resolved Time Rule Out COVID-19 11/20/2024 11/20/2024 11/21/2024 11:23 AM CDT Assessment Noted Time PHQ-9 Depression Total Score: 5 10/25/19 10:38 AM CDT documented as of this encounter Care Teams Payroll Accounting Specialist Relationship Specialty Start Date End Date Esha Grimm PA-C [address] [place] [address] PCP - General Family Medicine 05/04/23 Diana Desir, [facility] 3033 [place] [address] Pharmacist Pharmacist 04/17/21 Rain Galaviz PA-C [address] [place] [address] DR RA[address] [place] [address] Physician Housekeeping Aid Dermatology 04/28/21 Tavia Wyatt MD [address] [place] [address] DR RA[address] [place] [address] Dermatology 07/14/21 Erica Farrell APRN RESOURCE ECONOMIST [address] [place] [address] Nurse Practitioner Cardiovascular Disease 09/09/21 Rich Barrett MD [address] [place] [address] Physician Ophthalmology 01/21/22 Neil [place] MD 500 [place] [address] Dermatology 02/24/22 Diana Desir, [facility] 3033 [place] [address] Assigned MTM Pharmacist 04/07/22 Livan Sharif MD [address] [place], [place] 258585 Cardiovascular Disease 05/14/22 Catherine Cm MD [address] [address] Cardiovascular Disease 07/21/22 Valery Veronica, PA-C 909 [place] [address] Physician Housekeeping Aid Dermatology 07/21/22 Brea Quinn APRN RESOURCE ECONOMIST 500 [place] [address] Nurse Practitioner Dermatology 09/21/22 Radha Lomeli APRN RESOURCE ECONOMIST [address] [place], [place] 292035 Assigned Heart and Vascular Provider 05/28/23 11/29/24 Jelena David OD [address] [facility] [place] [address] MD Ophthalmology 06/15/23 Esha Grimm PA-C [address] [place] [phone] Assigned PCP 07/16/23 Valery Veronica PA-C [address] [place] [address] 649995 Physician Housekeeping Aid Dermatology 09/19/23 Rey Tay MD [address] [place] [address] 314085 MD Gastroenterology 09/20/23 Rocky Zepeda DO [address] [place] [address] 467475 Physician Gastroenterology 09/20/23 Philpi Dumont MD [address] [place] [address] 624435 Physician Ophthalmology 09/22/23 Meredith Carrera PA-C [address] [place] [address] 217855 Assigned Gastroenterology Provider 11/01/23 Neil [place] MD [address] [place] [address] Dermatology 11/02/23 [place] [address] [place] [address] Neurological Surgery 12/26/23 Audrey Waite PA-C 500 [place] [address] Physician Housekeeping Aid Dermatology 02/28/24 Valery Veronica PA-C 758959 [address] [place] [address] Physician Housekeeping Aid Dermatology 04/10/24 Herminia Hatch MD [address] [place] [address] Assigned Rheumatology Provider 07/02/24 Jelena David OD [address] [place] [address] [place] [address] Ophthalmology 08/30/24 [place] [address] [place] [address] Assigned Neuroscience Provider 09/30/24 Maru Man PA-C [address] [place] [address] Physician Housekeeping Aid Dermatology 10/03/24 Maru Man PA-C [address] [place] [address] Physician Housekeeping Aid Dermatology 10/22/24 Jelena David OD [address] [place] [address] [place] [address] Assigned Surgical Provider 10/31/24 documented as of this encounter
--- OUTSIDE RECORDS SUMMARY | 2024-11-21 23:04 | XMS_ITS | Encounter Summary ---
Author Organization [facility] Address [address] [place] [id number] Care Team Providers Care Tree Inspector Name Role Phone Diana Desir Stanislav [facility] Unavailable Rain Galaviz PA-C Unavailable Tavia Wyatt MD Unavailable Erica Farrell APRN PROMOTIONS ASSOCIATE Unavailable Rich Barrett MD Unavailable [phone] Neil Kent MD Unavailable ThangKendrickDiana Stanislav [facility] Unavailable [phone] Livan Sharif MD Unavailable Catherine Cm MD Unavailable + Valery Veronica-C Unavailable Brea Quinn APRN PROMOTIONS ASSOCIATE Unavailable [phone] Esha Grimm PA-C Primary Care Provider Radha Lomeli APRN PROMOTIONS ASSOCIATE Unavailable Jelena David OD Unavailable Esha Grimm PA-C Unavailable [phone] Valery Veronica PA-C Unavailable Rey Tay MD Unavailable DuaneRocky Unavailable Philip Dumont MD Unavailable LoreMeredith mayers PA-C Unavailable [phone] Neil [place] MD Unavailable Juan Pablo Emmanuel MD Unavailable Audrey Waite PA-C Unavailable Valery Veronica PA-C Unavailable Herminia Hatch MD Unavailable Jelena David OD Unavailable Juan Pablo Emmanuel MD Unavailable Maru Man PA-C Unavailable Maru Man PA-C Unavailable Jelena David OD Unavailable Reason for Visit * Reason Comments Shortness of Breath Chest Pain Encounter Details Date Type Department Care Team (Late st Contact Info) Description 11/21/2024 11:04 PM CDT - 11/22/2024 2:01 AM CDT [facility] Emergency Dept [address] [place] [address] Sha Ness MD [facility] [address] [place] [address] Influenza B; Sinus tachycardia Discharge Disposition: Home or Self Care Social [...] PHQ-2 Score 1 10/24/2024 [facility] - Occupational Stress Questionnaire [...] exercise at this level? 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 Gender Identity Female 03/02/2021 5:45 PM CDT Sexual Orientation Straight 02/28/2020 12 :51 AM CDT documented as of this encounter Last Filed Vital Signs Vital Sign Reading Time Taken Comments Blood Pressure 147/89 11/22/2024 1:31 AM CDT Pulse 98 11/22/2024 1:31 AM CDT Temperature 36.9 C (98.5 F) 11/22/2024 12:15 AM CDT Respiratory Rate 15 11/22/2024 1:31 AM CDT Oxygen Saturation 99% 11/22/2024 1:31 AM CDT Inhaled Oxygen Concentration - - Weight 90.7 kg (200 lb) 11/21/2024 10:59 PM CDT Height 167.6 cm (5' 6) 11/21/2024 10:59 PM CDT Body Mass Index 32.28 11/21/2024 10:59 PM CDT documented in this encounter Discharge Instructions * Discharge Instructions* Sha Ness MD - 11/22/2024 1:39 AM CDT Discharge Instructions Influenza You were diagnosed today with influenza or influenza like illness. Influenza is a respiratory (breathing) illness caused by influenza A or B viruses. Influenza causes five primary symptoms: fever, headache, muscle aches/fatigue/malaise, sore throat and cough. These symptoms start one to four days after you have been around a person with this illness. Influenza is spread through sneezing and coughing and can live on surfaces for several days. It is usually contagious for 5 days but in some casesup to 10 days and often affects several family members. If you have a family member who is less than 2 years old, older than 65 years old, or has a serious medical condition, they should be seen right away by a provider to decide if they should take preventative medications. Although influenza will make you feel very ill, most patients don???t require any specific treatment. An antiviralmedication might be prescribed for certain groups of patients (older patients, younger patients, and those with certain chronic medical problems). Generally, every Emergency Department visit should have a follow-up clinic visit with either a primary or a specialty clinic/provider. Please follow-up as instructed by your emergency provider today. Return to the Emergency Department if: You have trouble breathing. You develop pain in your chest. You have signs of being dehydrated, such as dizziness or unable to urinate (pee) at least three times daily. You are confused or severely weak. You cannot stop vomiting (throwing up) or you cannot drink enough fluids. In children, you should seek help if the child has any of the above or if child: Has blue or purplish skin color. Is so irritable that he or she does not want to be held. Does not have tears when crying (in infants) or does not urinate at least three times daily. Does not wake up easily. What can I do to help myself? Rest. Fluids -- Drink hydrating solutions such as Gatorade?? or Pedialyte?? as often as you can. If you are drinking enough, you should pass urine at least every eight hours. Tylenol?? (acetaminophen) and Advil?? (ibuprofen) can relieve fever, headache, and muscle aches. Donot give aspirin to children under 18 years old. Antiviral treatment -- Antiviral medicines do not make the flu symptoms go away immediately. They have only been shown to make the symptoms go away 12 to 24 hours sooner than they would without treatment. Antibiotics -- Antibiotics are NOT useful for treating viral illnesses such as influenza. Antibiotics should only be used if there is a bacterial complication of the flu such as bacterial pneumonia, ear infection, or sinusitis. Because you were diagnosed with a flu like illness you are very contagious. This means you cannot work, attend school or daycare for at least 24 hours or until you no longer have a fever. If you were given a prescription for [...] 1 09/01/2023 ketoconazole (NIZORAL) 2 % external shampooIndication s:Psoriasis Use every 1-2 days when flared. Leave in few minutes before rinsing. Use twice weekly to prevent flares. 120 mL 11 11/17/2023 levonorgestrel (MIRENA) 52 MG (20 mcg/day) IUD by Intrauterine route once metoprolol succinate ER (TOPROL XL) 25 MG 24 hr tabletIndications :Palpitations Take 0.5 tablets (12.5 mg) by mouth daily. 45 tablet 3 05/18/2024 omeprazole (PRILOSEC) [address] capsuleIndication s:Epigastric pain Take 1 capsule (40 mg) by mouth daily. 90 capsule 2 09/17/2024 tacrolimus (PROTOPIC) 0.1 % external ointmentIndicatio ns:Psoriasis [...] until healed then stop 80 g 10/18/2024 fluconazole (DIFLUCAN) 150 MG tabletIndications :Yeast infection of the vagina Take 1 tablet (150 mg) by mouth every 3 days for 2 doses. 2 tablet 11/20/2024 5 PARoxetine (PAXIL) 40 MG tabletIndications :Anxiety Take 1 tablet (40 mg) by mouth every morning. NEED APPT FOR FURTHER REFILLS. 30 tablet 1 10/18/2024 5 documented as of this encounter ED Notes * Sha Ness MD - 11/21/2024 11:39 PM CDT Emergency Department Note History of Present Illness Chief Complaint Shortness of Breath and Chest Pain HPI Kim Johnson is a 24 year old female with history significant for generalized anxiety disorder, chronic kidney disease, major depressive disorder, and SVT who presents for evaluation of shortness of breath and chest pain. Kim reports onset of body aches starting 2 days ago (11/19/24). Yesterday (11/20/24) she began experiencing progressively worsening elevated heart rate of 180, fever, cough, and sore throat. 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 She also notes back pain worsening when breathing. She was seen at the ED in [place] and diagnosed with influenza B. She was given fluids for her elevated heart rate. At present her watch reports a heart rateof 140. She states her entire body feels on fire and her throat feels raw and woody. She reports a blood pressure of 110/60 at baseline. She had Tylenol at 1200, Ibuprofen 600 mg at 0500, and Ibuprofen 400 mg at 1900. Currently taking Metoprolol. Notes concern for family history of heart disease. Independent Historian None Review of External Notes Reviewed UC note from yesterday. CXR negative. Past Medical History Medical History and Problem List Eosinophilic esophagitis Anxiety Depression Tobacco abuse SVT Psoriasis Seizure Nephrolithiasis Medications Mirena Ativan Toprol Omeprazole Paxil Surgical History SVT cardiac ablation Kidney surgery Physical Exam Patient Vitals for the past 24 hrs: BP Temp Temp src Pulse Resp SpO2 Height Weight 11/22/24 0100 137/82 -- -- 109 12 100 % -- -- 11/22/24 0049 -- -- -- 112 -- 99 % -- -- 11/22/24 0048 -- -- -- -- -- 100 % -- -- 11/22/24 0028 -- -- -- -- -- 97 % -- -- 11/22/24 0027 (!) 145/82 -- -- 105 -- -- -- -- 11/22/24 0026 -- -- -- 108 17 100 % -- -- 11/22/24 0025 -- -- -- 118 -- 100 % -- -- 11/22/24 0024 -- -- -- 111 18 99 % -- -- 11/22/24 0023 -- -- -- 109 23 100 % -- -- 11/22/24 0015 -- 98.5 ??F (36.9 ??C) Oral -- -- -- -- -- 11/21/24 2332 (!) 129/91 -- -- 111 15 99 % -- -- 11/21/240 -- -- -- 114 18 100 % -- -- 11/21/249 -- -- -- 116 11 99 % -- -- 11/21/242317 -- -- -- 107 17 100 % -- -- 11/21/242316 -- -- -- 111 10 100 % -- -- 11/21/242315 -- -- -- 118 20 100 % -- -- 11/21/242314 -- -- -- -- -- 100 % -- -- 11/21/242313 -- -- -- -- -- 100 % -- -- 11/21/242312 -- -- -- -- -- 100 % -- -- 11/21/242258 (!) 126/92 99 ??F (37.2 ??C) Temporal 101 22 100 % 1.676 m (5' 6) 90.7 kg (200 lb) Physical Exam Nursing note and vitals reviewed. HENT: Mouth/Throat: Moist mucous membranes. Eyes: EOMI, nonicteric sclera Cardiovascular: tachycardic, regular rhythm, no murmurs, rubs, or gallops Pulmonary/Chest: Effort normal and breath sounds normal. No respiratory distress. No wheezes. No rales. Musculoskeletal: Normal range of motion. Neurological: Alert. Moves all extremities spontaneously. Skin: Skin is warm and dry. No rash noted. Diagnostics Lab Results Labs Ordered and Resulted from Time of ED Arrival to Time of ED Departure INFLUENZA A/B, RSV AND SARS-COV2 PCR - Abnormal Result Value Influenza A PCR Negative Influenza B PCR Positive (*) RSV PCR Negative SARS CoV2 PCR Negative CBC WITH PLATELETS AND DIFFERENTIAL - Abnormal WBC Count 3.6 (*) RBC Count 4.34 Hemoglobin 11.2 (*) Hematocrit 34.5 (*) MCV 80 MCH 25.8 (*) MCHC 32.5 RDW 13.9 Platelet Count 160 % Neutrophils 59 % Lymphocytes 25 % Monocytes 12 % Eosinophils 3 % Basophils 0 % Immature Granulocytes 0 NRBCs per 100 WBC 0 Absolute Neutrophils 2.1 Absolute Lymphocytes 0.9 Absolute Monocytes 0.4 Absolute Eosinophils 0.1 Absolute Basophils 0.0 Absolute Immature Granulocytes 0.0 Absolute NRBCs 0.0 BASIC METABOLIC PANEL - Normal Sodium 138 Potassium 3.7 Chloride 107 Carbon Dioxide (CO2) 23 Anion Gap 8 Urea Nitrogen 9.1 Creatinine 0.73 GFR Estimate >90 Calcium 8.8 Glucose 85 TROPONIN T, HIGH SENSITIVITY - Normal Troponin T, High Sensitivity <6 Imaging Chest XR, PA & LAT Final Result IMPRESSION: Negative chest. EKG ECG results from 11/21/24 EKG 12-lead, tracing only Value Systolic Blood Pressure Diastolic Blood Pressure Ventricular Rate 115 Atrial Rate 117 IN Interval 160 QRS Duration 82 QT 332 QTc 459 P Austin 64 R AXIS 68 T Austin 24 Interpretation ECG Sinus tachycardia Nonspecific T wave abnormality Abnormal ECG When compared with ECG of 28-Oct-2024 17:27, no significant change other than tachycardic Independent Interpretation I independently reviewed the CXR. I see no evidence of ptx/opacity. ED Course Medications Administered Medications sodium chloride 0.9% BOLUS 1,000 mL (1,000 mLs Intravenous $New Bag 11/22/24 0012) acetaminophen (TYLENOL) tablet 1,000 mg (1,000 mg Oral $Given 11/22/24 0010) ketorolac (TORADOL) injection 15 mg (15 mg Intravenous Not Given 11/22/24 0033) LORazepam (ATIVAN) tablet 0.5 mg (0.5 mg Oral $Given 11/22/24 0010) Procedures Procedures Discussion of Management None ED Course ED Course as of 11/22/24 0125 Wed November 21, 2024 2334 I obtained history and examined the patient as noted above. Noa November 22, 2024 012 I rechecked and updated the patient. 0125 We discussed plan for discharge and the patient is comfortable with this. Additional Documentation None Medical Decision Making / Diagnosis [facility] Diagnoses: None MIPS None MDM Kim Johnson is a 24 year old female who presents with chief complaint of tachycardia and dyspneain the context of recent diagnosis of influenza B. She has been sick about 3 days. Patient tachycardic, though she does have history of tachycardia. This did improve during ED course with treatment with IV fluids. Patient declined Toradol. Chest x-ray negative for any infiltrate. Patient concerned about sepsis and mono. Discussed with her that there are no signs of sepsis and that influenza does not lead to mono. Patient asked for heart testing and troponin is normal ruling out myocarditis/strain/ACS. EKG without evidence of ischemia. I considered PE, but given known concurrent influenza B aswell as history of similar symptoms with multiple ED visits in the past, I would not pursue furtherPE testing at this time. Patient safe for discharge home. All questions answered. She is dischargedin stable condition. Red flags that should merit ED return discussed. Updated Disposition The patient was discharged. Diagnosis ICD-10-CM 1. Influenza B J10.1 2. Sinus tachycardia R00.0 Scribe Disclosure: CiraSeth, am serving as a scribe at 1:25 AM on 11/22/2024 to document services personally performed by Sha Ness MD based on my observations and the provider's statements to me. Sha Ness MD 11/22/24 0422 * Anni Pryor RN - 11/21/2024 11:06 PM CDT Images from the original note were not included. Pt diagnosed with influenza B yesterday presents with increasing SOB, BUTT, CP, productive cough with green sputum, HR up to 180 at home with history of SVT. Last apap at 1900, last motrin at 1700 Triage Assessment (Adult) Row Name 11/21/24 2302 Triage Assessment Airway WDL WDL Respiratory WDL Respiratory WDL cough;all Rhythm/Pattern, Respiratory shortness of breath Cough Frequency frequent Cough Type productive green Skin Circulation/Temperature WDL Skin Circulation/Temperature WDL WDL Cardiac WDL Cardiac WDL all;X Pulse Rate & Regularity tachycardic Peripheral/Neurovascular WDL Peripheral Neurovascular WDL WDL Cognitive/Neuro/Behavioral WDL Cognitive/Neuro/Behavioral WDL WDL documented in this encounter Plan of Treatment Upcoming Encounters Date Type Department Care Team (Latest Contact Info) Description 01/02/2025 1:10 PM CDT Ancillary Procedure [address] [address] Lauren Claudio PA-C [address] [place] [address] 01/17/2025 10:00 AM CDT Appointment [facility] Respiratory [address] [place] [phone] Lauren Claudio PA-C [address] [place], [place] [phone] 04/16/2025 11:00 AM CDT Virtual Visit [facility] [address] [place] [phone] Meredith Carrera PA-C [address] [place], [place] [phone] documented as of this encounter Procedures Procedure Name Priority Date/Time Associated Diagnosis Comments XR CHEST 2 VIEWS STAT 11/22/2024 12:4 3 AM CDT EXTRA TUBE STAT 11/22/2024 12:06 AM CDT EXTRA RED TOP TUBE STAT 11/22/2024 12 :06 AM CDT EXTRA BLUE TOP TUBE STAT 11/22/2024 1 2:06 AM CDT CBC WITH PLATELETS AND DIFFERENTIAL STAT 11/22/2024 12:06 AM CDT TROPONIN T, HIGH SENSITIVITY STAT 11/22/2024 12:06 AM CDT CBC WITH PLATELETS & DIFFERENTIAL STAT 11/22/2024 12:06 AM CDT BASIC METABOLIC PANEL STAT 11/22/2024 12:06 AM CDT INFLUENZA A/B, RSV AND SARS-COV2 PCR STAT 11/21/2024 11:17 PM CDT EKG 12-LEAD, TRACING ONLY STAT 11/21/2024 10:53 PM CDT documented in this encounter Results * Chest XR, PA & LAT (11/22/2024 12:43 AM CDT) Anatomical Region Laterality Modality Chest Digital Radiogra phy 11/22/2024 12:4 3 AM CDT Impressions 11/22/2024 12:50 AM CDT IMPRESSION: Negative chest. Narrative 11/22/2024 12:50 AM CDT EXAM: XR CHEST 2 VIEWS LOCATION: [facility] DATE: 11/22/2024 INDICATION: Cough and dyspnea. COMPARISON: 11/20/2024 Procedure Note Roney Monroy MD - 11/22/2024 EXAM: XR CHEST 2 VIEWS LOCATION: [facility] DATE: 11/22/2024 INDICATION: Cough and dyspnea. COMPARISON: 11/20/2024 IMPRESSION: Negative chest. us Sha Ness MD IMG DIAGNOSTIC IMAGING OR DERABLES Final Result * Extra Red Top Tube (11/22/2024 12:06 AM CDT) Hold Specimen [facility] 11/22/2024 1:31 AM CDT [facility] Blood VENOUS LINE / Unknown Venipuncture / Unknown 11/22/2024 12:06 AM CDT 11/22/2024 12:27 AM CDT us Sha Ness MD LAB - BLOOD ORDERABLES Fi nal Result [facility] Acute Care Lab [address] Lab (1st floor, no room number) [place] [address], [facility] * Extra Blue Top Tube (11/22/2024 12:06 AM CDT) Hold Specimen [facility] 11/22/2024 1:31 AM CDT [facility] Blood VENOUS LINE / Unknown Venipuncture / Unknown 11/22/2024 12:06 AM CDT 11/22/2024 12:27 AM CDT us Sha Ness MD LAB - BLOOD ORDERABLES Fi nal Result [facility] Acute Care Lab [address] Lab (1st floor, no room number) [place] [address], [facility] * (ABNORMAL) CBC with platelets and differential (11/22/2024 12:06 AM CDT) WBC Count 3.6(L) 4.0 - 11.0 10e3/uL 11/22/2024 12:33 AM CDT [facility] RBC Count 4.34 3.80 - 5.20 10e6/uL 11/22/2024 12:33 AM CDT [facility] Hemoglobin 11.2(L) 11.7 - 15.7 g/dL 11/22/2024 12:33 AM CDT [facility] Hematocrit 34.5(L) 35.0 - 47.0 % 11/22/2024 12:33 AM CDT [facility] MCV 80 78 - 100 fL 11/22/2024 12:33 AM CDT [facility] MCH 25.8(L) 26.5 - 33.0 pg 11/22/2024 12:33 AM CDT [facility] MCHC 32.5 31.5 - 36.5 g/dL 11/22/2024 12:33 AM CDT [facility] RDW 13.9 10.0 - 15.0 % 11/22/2024 12:33 AM CDT [facility] Platelet Count 160 150 - 450 10e3/uL 11/22/2024 12:33 AM CDT [facility] % Neutrophils 59 % 11/22/2024 12:33 AM CDT [facility] % Lymphocytes 25 % 11/22/2024 12:33 AM CDT [facility] % Monocytes 12 % 11/22/2024 12:33 AM CDT [facility] % Eosinophils 3 % 11/22/2024 12:33 AM CDT [facility] % Basophils 0 % 11/22/2024 12:33 AM CDT [facility] % Immature Granulocytes 0 % 11/22/2024 12:33 AM CDT [facility] NRBCs per 100 WBC 0 <1 /100 025 12:33 AM CDT [facility] Absolute Neutrophils 2.1 1.6 - 8.3 10e3/uL 11/22/2024 12:33 AM CDT LABORATORY Absolute Lymphocytes 0.9 0.8 - 5.3 10e3/uL 11/22/2024 12:33 AM CDT [facility] Absolute Monocytes 0.4 0.0 - 1.3 10e3/uL 11/22/2024 12:33 AM CDT LABORATORY Absolute Eosinophils 0.1 0.0 - 0.7 10e3/uL 11/22/2024 12:33 AM CDT LABORATORY Absolute Basophils 0.0 0.0 - 0.2 10e3/uL 11/22/2024 12:33 AM CDT LABORATORY Absolute Immature Granulocytes 0.0 <=0.4 10e3/uL 11/22/2024 12:33 AM CDT LABORATORY Absolute NRBCs 0.0 10e3/uL 11/22/2024 12:33 AM CDT LABORATORY Blood VENOUS LINE / Unknown Venipuncture / Unknown 11/22/2024 12:06 AM CDT 11/22/2024 12:27 AM CDT us Sha Ness MD LAB - BLOOD ORDERABLES Fi nal Result LABORATORY [facility] Acute Care Lab [address] [facility] Lab (1st floor, no room number) [place] [address], [facility] * Troponin T, High Sensitivity (11/22/2024 12:06 AM CDT) Troponin T, High Sensitivity <6 <=14 ng/L 11/22/2024 12:51 AM CDT [facility] Comment: Either a [...] follow-up, or urgent outpatient provocative testing. Blood VENOUS LINE / Unknown Venipuncture / Unknown 11/22/2024 12:06 AM CDT 11/22/2024 12:27 AM CDT us Sha Ness MD LAB - BLOOD ORDERABLES Fi nal Result LABORATORY [facility] Acute Care Lab [address] Lab (1st floor, no room number) [place] [address], [facility] * Basic metabolic panel (BMP) (11/22/2024 12:06 AM CDT) Sodium 138 135 - 145 mmol/L 11/22/2024 12:51 AM CDT LABORATORY Potassium 3.7 3.4 - 5.3 mmol/L 11/22/2024 12:51 AM CDT LABORATORY Chloride 107 98 - 107 mmol/L 11/22/2024 12:51 AM CDT LABORATORY Carbon Dioxide (CO2) 23 22 - 29 mmol/L 11/22/2024 12:51 AM CDT LABORATORY Anion Gap 8 7 - 15 mmol/L 11/22/2024 12:51 AM CDT LABORATORY Urea Nitrogen 9.1 6.0 - 20.0 mg/dL 11/22/2024 12:51 AM CDT LABORATORY Creatinine 0.73 0.51 - 0.95 mg/dL 11/22/2024 12:51 AM CDT LABORATORY GFR Estimate >90 >60 mL/min/1.7 3m2 11/22/2024 12:51 AM CDT LABORATORY Comment:eGFR calculated usin 2020 CKD-EPI equation. Calcium 8.8 8.8 - 10.4 mg/dL 11/22/2024 12:51 AM CDT LABORATORY Glucose 85 70 - 99 mg/dL 11/22/2024 12:51 AM CDT LABORATORY Blood VENOUS LINE / Unknown Venipuncture / Unknown 11/22/2024 12:06 AM CDT 11/22/2024 12:27 AM CDT us Sha Ness MD LAB - BLOOD ORDERABLES Fi nal Result LABORATORY [facility] Acute Care Lab [address] Lab (1st floor, no room number) [place] [address], [facility] * (ABNORMAL) Influenza A/B, RSV and SARS-CoV2 PCR (COVID-19) Nasopharyngeal (11/21/2024 11:17 PM CDT) Pathologist [facility] Influenza A PCR Negative Negative 11/22/2024 12:10 AM CDT LABORATORY Influenza B PCR Positive(A) Negative 11/22/2024 12:10 AM CDT LABORATORY RSV PCR Negative Negative 11/22/2024 12:10 AM CDT LABORATORY SARS CoV2 PCR Negative Negative 11/22/2024 12:10 AM CDT LABORATORY Comment:NEGATIVE: SARS-CoV-2 (COVID-19) RNA not detected, presumed negative. Swab NASOPHARYNGEAL STRUCTURE / Unknown Non-blood Collection / Unknown 11/21/2024 11:17 PM CDT 11/21/2024 11:30 PM CDT Narrative LABORATORY - 11/22/2024 12:10 AM CDT Testing was performed using the Xpert Xpress CoV2/Flu/RSV Assay on the [employer] GeneXpert Instrument. This test should be ordered for the detection of SARS- CoV2, influenza, and RSV viruses in individuals with signs and symptoms of respiratory tract infection. This test is for in vitro diagnostic use under the [place] FDA for laboratories certified under CLIA to perform high or moderate complexity testing. This test has been [place] FDA cleared. A negative result does not rule out the presence of PCR inhibitors in the specimen or target RNA in concentration below the limit of detection for the assay. If only one viral target is positive but coinfection with multiple targets is suspected, the sample should be re-tested with another FDA cleared, approved, or authorized test, if coninfection would change clinical management. This test was validated by the [facility]. These laboratories are certified under the Clinical Laboratory Improvement Amendments of 1988 (CLIA-88) as qualified to perfom high complexity laboratory testing. Sha Ness MD LAB - MICRO GENERAL ORDER GARY Final Result [facility] Acute Care Lab [address] Lab (1st floor, no room number) [place] [address], [facility] * EKG 12-lead, tracing only (11/21/2024 10:53 PM CDT) Systolic Blood Pressure mmHg RADIOLOGY RESULTS Diastolic Blood Pressure mmHg RADIOLOGY RESULTS Ventricular Rate 115 BPM RAD IOLOGY RESULTS Atrial Rate 117 BPM RADIOLOG Y RESULTS IN Interval 160 ms RADIOLOG Y RESULTS QRS Duration 82 ms RADIOLO GY RESULTS QT 332 ms RADIOLOGY RESULTS QTc 459 ms RADIOLOGY RESULTS P Austin 64 degrees RADIOLOGY RESULTS R AXIS 68 degrees RADIOLOGY RESULTS T Austin 24 degrees RADIOLOGY RESULTS Interpretation ECG Sinus tachycardia Nonspecific T wave abnormality Abnormal ECG When compared with ECG of 28-Oct-2024 17:27, Vent. rate has increased by 50 bpm Nonspecific T wave abnormality now evident in Inferior leads Nonspecific T wave abnormality now evident in Anterolateral leads Unconfirmed report - interpretation of this ECG is computer generated - see medical record for final interpretation Confirmed by - EMERGENCY ROOM, PHYSICIAN ([id number]), manuscript editor NIC LESTER ([id number]) on 11/22/2024 6:51:59 AM RADIOLOGY RESULTS 11/21/2024 10:5 3 PM CDT 11/22/2024 6:51 AM CDT Alin Woody DO ECG ORDERABLES Edited R esult - Final RADIOLOGY RESULTS documented in this encounter Visit Diagnoses Diagnosis Influenza B Influenza with other respiratory manifestations Sinus tachycardia Other specified cardiac dysrhythmias documented in this encounter Administered Medications Inactive Administered Medications - up to 3 most recent administrations Medication Order MAR Action Action Date Dose Rate Site acetaminophen (TYLENOL) tablet 1,000 mg 1,000 mg, Oral, ONCE, On Tue11/21/24 at 2340, For 1 dose, Maximum acetaminophen dose from all sources = 75 mg/kg/day not to exceed 4 gram $Given 11/22/2024 12:10 AM CDT 1,000 mg LORazepam (ATIVAN) tablet 0.5 mg 0.5 mg, Oral, ONCE, On Noa 11/22/24 at 0000, For 1 dose $Given 11/22/2024 12:10 AM CDT 0.5 mg sodium chloride 0.9% BOLUS 1,000 mL Intravenous, 1,000 mL, ONCE, at 2,000 mL/hr, Administer over 30 Minutes, On Tue11/21/24 at 2340, For 1 dose $New Bag 11/22/2024 12:12 AM CDT 1,000 mLs 2000 mL/hr documented in this encounter Active and Recently Administered Medications Times are shown in CDT. Scheduled Medication Order 11/20/2024 11/21/2024 11/22/2024 acetaminophen (TYLENOL) tablet 1,000 mg (COMPLETED) 1,000 mg, Oral, ONCE, On Tue11/21/24 at 2340, For 1 dose, Maximum acetaminophen dose from all sources = 75 mg/kg/day not to exceed 4 gram 0010 ($Given - Provi lynn: Salima Rose RN) LORazepam (ATIVAN) tablet 0.5 mg (COMPLETED) 0.5 mg, Oral, ONCE, On Noa 11/22/24 at 0000, For 1 dose 0010 ($Given - Provi lynn: Salima Rose RN) sodium chloride 0.9% BOLUS 1,000 mL (COMPLETED) Intravenous, 1,000 mL, ONCE, at 2,000 mL/hr, Administer over 30 Minutes, On Tue11/21/24 at 2340, For 1 dose 0012 ($New Bag - Pro vider: Salima Rose RN)0145 (Stopped - Provider: Audrey Vance RN) documented in this encounter Additional Health Concerns Infection Onset Date Last Indicated Resolved Time Rule Out COVID-19 11/21/2024 11/21/2024 11/22/2024 12:10 AM CDT Influenza 11/21/2024 11/21/2024 11/28/2024 7:42 PM CDT Assessment Noted Time PHQ-9 Depression Total Score: 5 10/25/19 25 10:38 AM CDT documented as of this encounter Care Teams Tree Inspector Relationship Specialty Start Date End Date Esha Grimm PA-C [address] [place] [address] PCP - General Family Medicine 05/04/23 Diana Desir [facility] [address] [place] [address] Pharmacist Pharmacist 04/17/21 Rain Galaviz PA-C [address] [place] [address] [address] [facility] [place] [address] Physician Chicken Catcher Dermatology 04/28/21 Tavia Wyatt MD [address] [place] [address] [address] [facility] [place] [address] Dermatology 07/14/21 Erica Farrell APRN PROMOTIONS ASSOCIATE [address] [place], [place] [address] Nurse Practitioner Cardiovascular Disease 09/09/21 Rich Barrett MD [address] [place] [address] Physician Ophthalmology 01/21/22 Neil Kent MD [address] [place] [address] Dermatology 02/24/22 Diana Desir [facility] [address] [place] [address] Assigned MTM Pharmacist 04/07/22 Livan Sharif MD [address] [address] Cardiovascular Disease 05/14/22 Catherine Cm MD [address] [facility] [address] [address] Cardiovascular Disease 07/21/22 Valery Veronica PA-C [address] [place] [address] 101795 Physician Chicken Catcher Dermatology 07/21/22 Brea Quinn APRN [employer]IONS ASS[employer] [address] [place] [address] 745655 Nurse Practitioner Dermatology 09/21/22 Radha Lomlei APRN [employer]OTIONS ASSOCIATE [address] [facility] [address] [address] Assigned Heart and Vascular Provider 05/28/23 11/29/24 Jelena David OD [address] [facility] [place] [address] Ophthalmology 06/15/23 Esha Grimm PA-C [address] [place] [phone] Assigned PCP 07/16/23 Valery Veronica PA-C [address] [place] [address] 946245 Physician Chicken Catcher Dermatology 09/19/23 Rey Tay MD [address] [place] [address] [id number] MD Gastroenterology 09/20/23 Rocky Zepeda DO [address] [place] [address] 507505 Physician Gastroenterology 09/20/23 Philip Dumont MD [address] [place] [address] [phone] Physician Ophthalmology 09/22/23 Meredith Carrera PA-C [address] [place] [address] 187195 Assigned Gastroenterology Provider 11/01/23 Neil Kent MD [address] [id number] MD Dermatology 11/02/23 [place] [address] [id number] Neurological Surgery 12/26/23 Audrey Waite PA-C [address] [place] [address] 288035 Physician Chicken Catcher Dermatology 02/28/24 Valery Veronica PA-C [id number] [address], [place] [address] Physician Chicken Catcher Dermatology 04/10/24 Herminia Hatch MD [facility] [place] [address] Assigned Rheumatology Provider 07/02/24 Jelena David OD [address] [place] [address] Ophthalmology 08/30/24 [place] [address] [place] [address] Assigned Neuroscience Provider 09/30/24 Maru Man PA-C [address] [place] [address] Physician Chicken Catcher Dermatology 10/03/24 Maru Man PA-C [address] [place] [address] Physician Chicken Catcher Dermatology 10/22/24 Jelena David, SONJA [address] [place] [address] Assigned Surgical Provider 10/31/24 documented as of this encounter
--- OUTSIDE RECORDS SUMMARY | 2024-11-22 04:00 | XMS_ITS | Encounter Summary ---
Author Organization [facility] Address [address] [place] [address] Care Team Providers Care Meeting Coordinator Name Role Phone Diana Desir Stanislav [facility] Unavailable Rain Galaviz PA-C Unavailable Tavia Wyatt MD Unavailable Erica Farrell APRN PATIENT PLACEMENT COORDINATOR Unavailable Rich Barrett MD Unavailable [phone] Neil Kent MD Unavailable ThangKendrickDiana Stanislav [facility] Unavailable [phone] Livan Sharif MD Unavailable Catherine Cm MD Unavailable + Valery Veronica-C Unavailable Brea Quinn APRN PATIENT PLACEMENT COORDINATOR Unavailable Esha Grimm PA-C Primary Care Provider Radha Lomeli APRN PATIENT PLACEMENT COORDINATOR Unavailable Jelena David OD Unavailable Esha Grimm PA-C Unavailable [phone] Valery Veronica PA-C Unavailable Rey García MD Unavailable ZepedaRocky woodard Unavailable Philip Dumont MD Unavailable DebiMeredith PA-C Unavailable Neil Kent MD Unavailable Juan Pablo Emmanuel MD Unavailable [phone] Audrey Waite PA-C Unavailable Valery Veronica PA-C Unavailable Herminia Hatch MD Unavailable Jelena David OD Unavailable [phone] Juan Pablo Emmanuel MD Unavailable Maru Man PA-C Unavailable Maru Man-C Unavailable Jelena David OD Unavailable Reason for Visit * Reason Comments Chest Pain * Auth/Cert (Routine) Specialty Diagnoses / Procedures Referred By Contparviz t Referred To Contact EMERGENCY MEDICINE Diagnoses Shortness of breath Tachycardia Near syncope Influenza B [facility] Emergency Dept [address] [place] [address] Phone: tel: fax: Referral ID Status Reason Start Date Expiration Date Visits Re quested Visits Authorized [id number] 1 1 Encounter Details Date Type Department Care Team (Late st Contact Info) Description 11/22/2024 4:00 AM CDT - 11/22/2024 10:31 AM CDT Hospital Encounter [facility] Emergency Dept [address] [place] [phone] Elizabeth Griffin MD [facility] [address] [place] [address] Apolinar Grande MD [facility] [address] [place], [place] [address] Luis Angel Leone MD [address] [place] [phone] Dot Dale MD [address] [place] [id number] Shortness of breath; Tachycardia; Near syncope; Influenza [...] Score 1 10/24/2024 [facility] [...] exercise at this level? 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 Had sinus tachycardia at [facility] emergency department on EKG. Currently in [...] minutes discharging this patient. Dot Dale MD [facility] EMERGENCY DEPT [address] [place] [address] Physical Exam Vital Signs: Temp: 98.5 ??F [...] 11/22/24 Echocardiogram Complete Value LVEF 60-65% Narrative [id number]^LEONE^LUIS ANGEL^[facility] Echocardiography Laboratory [address] [place] [address] Name: KIM CLARK : 2000 Study Date: 11/22/2024 09:53 AM Age: 24 yrs Gender: Female Patient Location: [facility] Reason For Study: Tachycardia Ordering Physician: LUIS [...] days for 2 doses. 2 tablet 11/20/2024 PARoxetine (PAXIL) 40 MG tabletIndications :Anxiety Take 1 tablet (40 mg) by mouth every morning. NEED APPT FOR FURTHER REFILLS. 30 tablet 1 10/18/2024 5 documented as of this encounter Progress Notes * Fatemeh Castañeda PA-C - 11/22/2024 10:25 AM CDT Cardiology consultation received. Patient was discharged from the ER prior to being seen. Fatemeh Castañeda PA-C documented in this encounter H&P Notes * Luis Angel Leone MD - 11/22/2024 6:06 AM CDT [facility] History and Physical - Hospitalist Service [...] with influenza B. Had sinus tachycardia at [facility] emergency department on EKG. Currently in normal sinus rhythm. History of SVT without known recurrence after ablation in 2021. - Continue metoprolol XL 12.5 mg twice daily - Cardiac telemetry - Echocardiogram ordered per cardiology recommendations; ordered as pending discharge - Cardiology consulted - Anticipate discharge following echocardiogram - As needed Karla, maury that - Acetaminophen, ibuprofen; Protonix while on [...] echocardiogram Luis Angel Leone MD Hospitalist Service [facility] Securely message with Software [employer] (more info) Text page via [employer] Paging/Directory Chief Complaint Tachycardia, lightheadedness History is [...] heart rates for which she went to [facility] emergency department 11/21 lateev. Heart rates in the 120s, improved with [...] acute influenza diagnosis. Had sinus tachycardia at [facility] emergency department as well, which would fit with this. Discussed this with the patient in the emergency department, and she is understanding. In the past she had been told by her diver assistant that tachycardia persisting into the 45 iybbkbs-1-gmon range might be problematic, but suspect this [...] seizure since approx 2018 SVT (supraventricular tachycardia) Past Surgical History Past Surgical History: Procedure Laterality Date EP ABLATION SVT N/A 08/28/2021 Procedure: EP Ablation SVT; Surgeon: Galo Burrell MD; Location: [facility] ESOPHAGOSCOPY, GASTROSCOPY, DUODENOSCOPY (EGD), COMBINED N/A 06/26/2021 [...] Narrative EXAM: XR CHEST 2 VIEWS LOCATION: [facility] DATE: 11/22/2024 INDICATION: Cough and dyspnea. COMPARISON: 11/20/2024 Impression IMPRESSION: Negative chest. documented in this encounter ED Notes * Damaris Maxwell RN - 11/22/2024 7:30 AM CDT Patient wanting to go home and do echo outpatient - echo called and stated would be down shortly for procedure. Dr Dale updated. * Meagan Osei RN - 11/22/2024 6:02 AM CDT [facility] ED Nurse Handoff Report ED Chief complaint: [...] stay home, and she later went to [facility] ER. Pt wasthen given fluids, a work up was done and pt was discharged home. Pt reports as she got home she received a call from cardiology telling her to come to this area/ER r/t concers for inflammation of the heart. Per pt the mechanic industrial truck told her he would put a note in her chart. Pt also reports she wentto the ER in [facility] prior to being seen at [facility]. Also per EMS pt endorses 6/10 chest heaviness as well of shortness of breath when she falls asleep. 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 ED NURSE PHONE NUMBER: *[phone] * Meagan Osei RN - 11/22/2024 4:20 AM CDT Pt arrives via EMS. Per EMS pt recently tested positive for influenza B. Pt has been experiencing flu like symptoms since Tuesday including fevers, chills, body aches, and an intermittently racing HR.Pt was seen by EMS and decided to stay home, and she later went to [facility] ER. Pt was then given fluids, a work up was done and pt was discharged home. Pt reports as she got home she received a call from cardiology telling her to come to this area/ER r/t concers for inflammation of the heart. Per ptthe mechanic industrial truck told her he would put a note in her chart. Pt also reports she went to the ER in [facility] prior to being seen at [facility]. Also per EMS pt endorses 6/10 chest heaviness as well of shortness of breath when she falls asleep. 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 EMS placed pt on 2 L oxygen [...] 3 nights. She reports she works at [employer]. She also reports associated tachycardia which she monitors on her apple watch over past 3 days. She also reports testing positive for influenza B couple days ago. She reports with her past history of of SVT and her apple watch suggesting tachycardia between 100-130s, she went to [facility] earlier tonight. She was discharged an hour prior to arrival. She reports while driving back to home from the hospital she started experiencing shortness of breath and lightheadedness. She also reports to experiencing burning chest discomfort. She reached home and called an investor relations analyst cardiology Dr. Waller who she reports asked [...] Tylenol at home. She took last ibuprofen [id number] and last Tylenol at 0000. She states [...] Pressure Ventricular Rate 91 Atrial Rate 91 AZ Interval 148 QRS Duration 84 QT 358 QTc 440 P Meredith 31 R AXIS 33 T Meredith 20 Interpretation ECG Sinus rhythm Normal ECG When compared with ECG of 21-Nov-2024 22:53, No significant change was found Interepreted by Elizabeth Griffin MD at 0453 Independent Interpretation None ED Course Medications Administered Medications - No data to display Procedures Procedures Discussion of Management Admitting Hospitalist, Dr. Leone Cardiology, Dr. Waller 0556 ED Course ED Course as of 11/22/24 0619 [facility] November 22, 2024 0427 I obtained the history and examined the patient as above. [address] Leone from the hospitalist service regarding the patient's presentation, findings here in the ED, and plan of care. 0275 I rechecked and updated the patient. Additional Documentation None Medical Decision Making / Diagnosis [facility] Diagnoses: None MIPS None MDM Kim Clark is a 24 year old [...] fevers. She has had myalgias and cough assoc iated with this influenza. Chest x-ray done at [facility] ED a couple hours prior to arrival here was negative for infiltrate or pulmonary edema. EKG here with sinus rhythm with no acute ischemic changesno evidence of pericarditis. Troponins negative making myocarditis unlikely. CRP is increased from yesterday but likely related to her active influenza B infection. Patient talked to Dr. Waller in the cardiology clinic she has followed there for SVT prior to arrival. He recommended she come to the emergency department for observation admission and echocardiogram to ensure no effusion. Patient has had normal heart rates here in the emergency department even with walking. I did discuss with Dr. Waller and he is recommending observation admission and echocardiogram. I did offer patient to discharge and do this as an outpatient given normal heart rates but she prefers to do it here in the hospital. Patient will be admitted to observation with Dr. Leone for echocardiogram and cardiology consultation.She felt comfortable with this plan and all questions and concerns addressed Disposition The patient was admitted to the hospital. Diagnosis ICD-10-CM 1. Shortness of breath R06.02 2. Tachycardia R00.0 3. Near syncope R55 4. Influenza B J10.1 Scribe Disclosure: Cira Mckenna Cynthia, am serving as a scribe at 4:03 AM [...] 596 24F pt told to return to [place] for poss inflammation of heart documented in this encounter Miscellaneous Notes * Pharmacy-Admission Medication History - Rain Hernandez RPH - 11/22/2024 9:41 AM CDT Pharmacist Admission Medication History Admission medication history is complete. The information provided in this note is only as accurateas the sources available at the time of the update. Information Source(s): Patient and CareEverywhere/SureScripts via in-person Changes made to RIVER TRANSPORTATION WORKER medication list: Added: None Deleted: MVI, digestive enzymes, probiotic Changed: None Allergies reviewed with patient and updates made in EHR: no Medication History Completed By: Rain Hernandez RPH 11/22/2024 9:41 AM Current Facility-Administered Medications for the 11/22/24 encounter (Hospital Encounter) Medication sodium chloride (PF) 0.9% PF flush 3 mL RIVER TRANSPORTATION WORKER Med List Medication Sig Last Dose/Taking clindamycin [...] heart rates for which she went to [facility] emergency department 11/21 lateevening. Heart rates in the 120s, improved [...] acute influenza diagnosis. Had sinus tachycardia at [facility] emergency department as well, which would fit with this. Discussed this with the patient in the emergency department, and she is understanding. In the past she had been told by her diver assistant that tachycardia persisting into the 45 ibxazdy-9-dwsd range might be problematic, but suspect this [...] Description 01/02/2025 1:10 PM CDT Ancillary Procedure [address] [address] Lauren Claudio PA-C [id number] [place] [address] 01/17/2025 10:00 AM CDT Appointment [place] [address] [place] [phone] Lauren Claudio PA-C [address] [place] [address] 04/16/2025 11:00 AM CDT Virtual Visit [facility] [address] [place] [phone] Meredith Carrera PA-C [address] [place] [address] documented as of this encounter Procedures Procedure [...] AM CDT Narrative 11/22/2024 1:45 PM CDT [id number]^OTONIEL^LUIS ANGEL^ROSA M [facility] Echocardiography Laboratory [address] [place] [address] Name: KIM CLARK : 2000 Study Date: 11/22/2024 09:53 AM Age: 24 yrs Gender: Female Patient Location: [facility] Reason For Study: Tachycardia Ordering Physician: LUIS [...] Procedure Note Samantha Singh MD - 11/22/2024 [id number]^OTONIEL^LUIS ANGEL^ROSA M [facility] Echocardiography Laboratory [address] [place] [address] Name: KIM CLARK : 2000 Study Date: 11/22/2024 09:53 AM Age: 24 yrs Gender: Female Patient Location: [facility] Reason For Study: Tachycardia Ordering Physician: LUIS [...] platelets and differential (11/22/2024 5:00 AM CDT) WBC Count 4.0 4.0 - 11.0 10e3/uL [...] 31.5 - 36.5 g/dL 11/22/2024 5:06 AM T LABORATORY RDW 14.0 10.0 - 15.0 % [...] ORDERABLES Final Result LABORATORY [facility] [address] floor, [address] [place] [address], [place] [phone] * (ABNORMAL) CRP inflammation (11/22/2024 5:00 AM CDT) CRP Inflammation 13.82(H) <5.00 mg/L 11/22/2024 5:25 AM CDT LABORATORY Blood BLOOD SPECIMEN / Unknown Venipuncture / Unknown 11/22/2024 5:00 AM CDT 11/22/2024 5:04 AM CDT us Elizabeth Griffin MD LAB - BLOOD ORDERABLES Final Result LABORATORY [facility] [address], [address] [place] [address], [place] [phone] * Erythrocyte sedimentation rate auto (11/22/2024 5:00 AM CDT) Erythrocyte Sedimentation Rate 8 0 - 20 mm/hr 11/22/2024 9:20 AM CDT [facility] LABORATORY Blood BLOOD SPECIMEN / Unknown Venipuncture / Unknown 11/22/2024 5:00 AM CDT 11/22/2024 5:04 AM CDT us Elizabeth Griffin MD LAB - BLOOD ORDERABLES Final Result [facility] LABORATORY [facility] [address] [facility], [address] [place] [address] * (ABNORMAL) Basic metabolic panel (11/22/2024 5:00 AM CDT) [facility] Sodium 138 135 - 145 mmol/L 11/22/2024 5:25 AM CDT LABORATORY Potassium 3.7 3.4 - 5.3 mmol/L 11/22/2024 5:25 AM CDT LABORATORY Chloride 106 98 - 107 mmol/L 11/22/2024 5:25 AM CDT LABORATORY Carbon Dioxide (CO2) 22 22 - 29 mmol/L 11/22/2024 5:25 AM CDT LABORATORY Anion Gap 10 7 - 15 mmol/L 11/22/2024 5:25 AM CDT LABORATORY Urea Nitrogen 8.6 6.0 - 20.0 mg/dL 11/22/2024 5:25 AM CDT LABORATORY Creatinine 0.66 0.51 - 0.95 mg/dL 11/22/2024 5:25 AM T LABORATORY GFR Estimate >90 >60 mL/min/1.7 3m2 11/22/2024 5:25 AM T LABORATORY Comment:eGFR calculated us2020 CKD-EPI equation. Calcium 8.5(L) 8.8 - 10.4 mg/dL 11/22/2024 5:25 AM T LABORATORY Glucose 106(H) 70 - 99 mg/dL 11/22/2024 5:25 AM T LABORATORY Blood BLOOD SPECIMEN / Unknown Venipuncture / Unknown 11/22/2024 5:00 AM CDT 11/22/2024 5:04 AM CDT us Elizabeth Griffin MD LAB - BLOOD ORDERABLES Final Result Performing Organization Address City/[facility]/ZIP Co de Phone Number LABORATORY [facility] [address], [address] [place] [address], [place] [phone] * Troponin T, High Sensitivity (11/22/2024 5:00 [...] BLOOD ORDERABLES Final Result Performing Organization Address City/[facility]/ZIP Co de Phone Number LABORATORY [facility] [address] floor, [address] [place] [address], [place] [phone] * EKG 12-lead, tracing only (11/22/2024 4:45 AM CDT) Systolic Blood Pressure mmHg RADIOLOGY RESULTS Diastolic Blood Pressure mmHg RADIOLOGY RESULTS Ventricular Rate 91 BPM RAD IOLOGY RESULTS Atrial Rate 91 BPM RADIOLOG Y RESULTS AZ Interval 148 ms RADIOLOG Y RESULTS QRS Duration 84 ms RADIOLO GY RESULTS QT 358 ms RADIOLOGY RESULTS QTc 440 ms RADIOLOGY RESULTS P Meredith 31 degrees RADIOLOGY RESULTS R AXIS 33 degrees RADIOLOGY RESULTS T Meredith 20 degrees RADIOLOGY RESULTS Interpretation ECG Sinus rhythm Normal ECG When compared with ECG of 21-Nov-2024 22:53, (unconfirmed) No significant change was found Confirmed by GENERATED REPORT, COMPUTER ([id number]), health editor NIGEL CARD ([id number]) on 11/22/2024 7:57:36 AM RADIOLOGY RESULTS 11/22/2024 [...] 500 mL/hr, Administer over 2 Hours, On Tue11/22/24 at 0705, For 1 dose 0705 (Canceled [...] EVERY MORNING BEFORE BREAKFAST, First dose on Tue11/22/24 at 0730 0730 (Canceled Entry - Provider: Orders Generic Provider - Comment: Automatically canceled at discontinue of medication order) sodium chloride (PF) 0.9% PF flush 3 mL 3 mL, Intracatheter, EVERY 8 HOURS, First dose on Tue11/22/24 at 0705, And Q1H PRN, to lock [...] documented as of this encounter Care Teams Meeting Coordinator Relationship Specialty Start Date End Date Esha Grimm PA-C [address] [place] [phone] PCP - General Family Medicine 05/04/23 Diana Desir [facility] [address] [place] [address] Pharmacist Pharmacist 04/17/21 Rain Galaviz PA-C [address] [place] [address] ENMA KNUTSON [address] Physician Waste Water Treatment Plant Operator Dermatology 04/28/21 Tavia Wyatt MD [address] [place] [address] DR [address] [facility] [place] [id number] Dermatology 07/14/21 Erica Farrell APRN PATIENT PLACEMENT COORDINATOR [address] [place] [phone] Nurse Practitioner Cardiovascular Disease 09/09/21 Rich Barrett MD [address] [place] [address] Physician Ophthalmology 01/21/22 Neil Kent MD [address] [place] [address] Dermatology 02/24/22 [facility] [address] [place], [place] [address]65[address] Assigned [place] Pharmacist 04/07/22 Livan Sharif MD [address] [place] [address] Cardiovascular Disease 05/14/22 Catherine Cm MD [address] [place] [address] Cardiovascular Disease 07/21/22 Valery Veronica, PA-C [address] [place], [place] 1578[address] Physician Waste Water Treatment Plant Operator Dermatology 07/21/22 Brea Quinn APRN PATIENT PLACEMENT COORDINATOR [address] [place] [address]90375 Nurse Practitioner Dermatology 09/21/22 Radha Lomeli APRN PATIENT PLACEMENT COORDINATOR [address] [place], [place] [phone] Assigned Heart and Vascular Provider 05/28/23 11/29/24 Jelena David OD [address] [address] [place] [id number] MD Ophthalmology 06/15/23 Esha Grimm PA-C [address] [place] [phone] Assigned PCP 07/16/23 Valery Veronica PA-C [address] [place] [address]7975 Physician Waste Water Treatment Plant Operator Dermatology 09/19/23 Rey García MD [address] [place] [id number] MD Gastroenterology 09/20/23 Rocky Zepeda DO [address] [place] [address] 879605 Physician Gastroenterology 09/20/23 Philip Dumont MD [address] [place] [address] [phone] Physician Ophthalmology 09/22/23 Meredith Carrera PA-C [address] [place] [address] Assigned Gastroenterology Provider 11/01/23 Neil Kent MD [address] [place] [address] Dermatology 11/02/23 [place] [address] [place] [address] Neurological Surgery 12/26/23 Audrey Waite PA-C [address] [place] [address] Physician Waste Water Treatment Plant Operator Dermatology 02/28/24 Valery Veronica PA-C 117676 [address] [place] [address] Physician Waste Water Treatment Plant Operator Dermatology 04/10/24 Herminia Hatch MD [address] [place] [address] [id number] Assigned Rheumatology Provider 07/02/24 Jelena David OD [address] [place] [address] [place] [address] Ophthalmology 08/30/24 [place] [address] [place] [address] Assigned Neuroscience Provider 09/30/24 Maru Man PA-C [address] [place] [address] Physician Waste Water Treatment Plant Operator Dermatology 10/03/24 Maru Man PA-C [address] [place] [address] Physician Waste Water Treatment Plant Operator Dermatology 10/22/24 Jelena David OD [address] [facility] [address] Assigned Surgical Provider 10/31/24 documented as of this encounter
--- OUTSIDE RECORDS SUMMARY | 2024-12-04 15:05 | XMS_ITS | Encounter Summary ---
Author Organization [facility] Address [address] [place] [address] Care Team Providers Care International Logistics Manager Name Role Phone Diana Desir [facility] Unavailable Rain GalavizC Unavailable Tavia Wyatt MD Unavailable [phone] Erica Farrell APRN DELIVERY HELPER Unavailable Rich Barrett MD Unavailable [phone] Neil Kent MD Unavailable ThangKendrickDiana Stanislav [facility] Unavailable [phone] Livan Sharif MD Unavailable Catherine Cm MD Unavailable + Valery Veronica-C Unavailable [phone] Brea Quinn APRN DELIVERY HELPER Unavailable Esha Grimm PA-C Primary Care Provider Jelena David OD Unavailable Esha Grimm PA-C Unavailable [phone] Valery Veronica PA-C Unavailable Rey Tay MD Unavailable DuaneRocky Unavailable Philip Dumont MD Unavailable [phone] Meredith Carrera PA-C Unavailable [phone] Neil Kent MD Unavailable Juan Pablo Emmanuel MD Unavailable Audrey Waite PA-C Unavailable [phone] Valery Veronica PA-C Unavailable [phone] Herminia Hatch MD Unavailable Jelena David OD Unavailable Juan Pablo Emmanuel MD Unavailable Maru Man PA-C Unavailable [phone] Maru Man PA-C Unavailable Jelena David OD Unavailable Fabiano Correa BUSINESS WRITER Unavailable Reason for Referral * Diagnostic Imaging XR (Routine) - Pending Review Specialty Diagnoses / Procedures Referred By Contparviz t Referred To Contact Radiology. Diagnoses Acute cough Procedures XR Chest 2 Views Amalia Zayas MD [address] [facility] [address] Phone: tel: fax: Referral ID Status Reason Start Date Expiration Date V isits Requested Visits Authorized [id number] Pending Review 12/04/2024 12/04/2025 1 1 Reason for Visit * Reason Comments Cough Flu follow up from 2 weeks ago,now has a cough, diarrhea, chest tightness and left arm feels weird, Encounter Details Date Type Department Care Team (Late Contact Info) Description 12/04/2024 3:05 PM CDT Office Visit [facility] Urgent [facility] [address] [place] [address] Amalia Zayas MD [address] [facility] [address] Pneumonia of right lower lobe due [...] Answer Date Recorded PHQ-2 Score 1 10/24/2024 [facility] [place] of Occupat ional Health - Occupational Stress [...] exercise at this level? 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 [...] Description 01/02/2025 1:10 PM CDT Ancillary Procedure [address] [phone] Lauren Claudio PA-C [address] [place] [address] 01/17/2025 10:00 AM CDT Appointment [facility] Respiratory [address] [place] [phone] Lauren Claudio PA-C [address] [place] [address] 04/16/2025 11:00 AM CDT Virtual Visit [facility] Gastroenter[facility] Clinic [address] [place] [phone] Meredith Carrera PA-C [address] [place] [address] documented as of this encounter Procedures Procedure [...] CDT EXAM: XR CHEST 2 VIEWS LOCATION: [facility] DATE: 12/04/2024 INDICATION: Acute cough COMPARISON: None. Procedure Note Gareth Murray MD - 12/05/2024 EXAM: XR CHEST 2 VIEWS LOCATION: [facility] DATE: 12/04/2024 INDICATION: Acute cough COMPARISON: None. IMPRESSION: Patchy opacity within the right lung base which may representpneumonia in the correct clinical setting. Otherwise the lungs are clear.There is no pleural effusion or pneumothorax. The heart size is normal. us Amalia Zayas MD IMG DIAGNOSTIC IMAGING ORDERA BLES Final Result * EKG 12-lead complete w/read - Clinics (12/04/2024) us Amalia Zayas MD ECG ORDERABLES Final Result documented in this encounter Visit Diagnoses Diagnosis Pneumonia of right lower lobe due to infectious organism- Primary Acute cough Chest pain, unspecified type Acute cough documented in this encounter Additional Health Concerns Assessment Noted Time PHQ-9 Depression Total Score: 5 10/25/19 25 10:38 AM CDT documented as of this encounter Care Teams International Logistics Manager Relationship Specialty Start Date End Date Esha Grimm PA-C [address] [place] [phone] PCP - General Family Medicine 05/04/23 Diana Desir [facility] [address] [place] [address] Pharmacist Pharmacist 04/17/21 Rain Galaviz PA-C [address] [place] [address] [address] [place] [address] Physician Aquarium Tank Attendant Dermatology 04/28/21 Tavia Wyatt MD [address] [place] [address] DR [address] Lara [place] [address] Dermatology 07/14/21 Erica Farrell APRN DELIVERY HELPER [address] [place] [address] Nurse Practitioner Cardiovascular Disease 09/09/21 Rich Barrett MD [address] [place] [address] Physician Ophthalmology 01/21/22 Neil Kent MD [address] [place], [place] 484065 Dermatology 02/24/22 Diana Desir, [facility] [address] [place] [address] Assigned MTM Pharmacist 04/07/22 Livan Sharif MD [address] [place] [id number] Cardiovascular Disease 05/14/22 Catherine Cm MD [address] [place] 182765 Cardiovascular Disease 07/21/22 Valery Veronica PA-C [address] [place] [address] 022045 Physician Aquarium Tank Attendant Dermatology 07/21/22 Brea Quinn APRN DELIVERY HELPER [address] [place] [address] 033895 Nurse Practitioner Dermatology 09/21/22 Jelena David OD [address] [place] [address] [place] [address] MD Ophthalmology 06/15/23 Esha Grimm PA-C [address] [place] [phone] Assigned PCP 07/16/23 Valery Veronica PA-C [address] [place] [address] 499765 Physician Aquarium Tank Attendant Dermatology 09/19/23 Rey Tay MD [address] [place] [address] 188065 Gastroenterology 09/20/23 Rocky Zepeda DO [address] [place] [address] 155195 Physician Gastroenterology 09/20/23 Philip Dumont MD [address] [place] [address] 811065 Physician Ophthalmology 09/22/23 Meredith Carrera PA-C [address] [place] [address] Assigned Gastroenterology Provider 11/01/23 Neil Kent MD [address] [place] [address] Dermatology 11/02/23 [place] [address] [place] [address] Neurological Surgery 12/26/23 Audrey Waite PA-C [address] [place] [address] Physician Aquarium Tank Attendant Dermatology 02/28/24 Valery Veronica PA-C [id number] [address] [place] [address] Physician Aquarium Tank Attendant Dermatology 04/10/24 Herminia Hatch MD [address] [place] [address] [id number] Assigned Rheumatology Provider 07/02/24 Jelena David OD [address] [place] [address] [place] [address] Ophthalmology 08/30/24 [place] [address] [facility] [place] [facility] [place] [address] Assigned Neuroscience Provider 09/30/24 Maru Man PA-C [address] [place] [address] Physician Aquarium Tank Attendant Dermatology 10/03/24 Maru Man PA-C [address] [place] [address] Physician Aquarium Tank Attendant Dermatology 10/22/24 Jelena David OD [address] [facility] [place] [address] Assigned Surgical Provider 10/31/24 Fabiano Correa NP [address] [place] [address] Assigned Heart and Vascular Provider 11/30/24 documented as of this encounter
--- OUTSIDE RECORDS SUMMARY | 2024-12-04 15:55 | XMS_ITS | Encounter Summary ---
Author Organization [facility] Address [address] [place] [address] Care Team Providers Care Bulb Inspector Name Role Phone Diana Desir [facility] Unavailable Rain GalavizC Unavailable Tavia Wyatt MD Unavailable [phone] Erica Farrell APRN CLINICAL FELLOW Unavailable Rich Barrett MD Unavailable [phone] Neil Kent MD Unavailable ThangKendrickDiana Stanislav [facility] Unavailable Livan Sharif MD Unavailable Catherine Cm MD Unavailable + Valery Veronica-C Unavailable Brea Quinn APRN CLINICAL FELLOW Unavailable Esha Grimm PA-C Primary Care Provider Jelena David OD Unavailable Esha Grimm PA-C Unavailable [phone] Valery Veronica PA-C Unavailable [phone] Rey Tay MD Unavailable DuaneRocky Unavailable Philip Dumont MD Unavailable Meredith Carrera PA-C Unavailable Neil Kent MD Unavailable Juan Pablo Emmanuel MD Unavailable [phone] Audrey Waite PA-C Unavailable Valery Veronica PA-C Unavailable Herminia Hatch MD Unavailable Jelena David OD Unavailable Juan Pablo Emmanuel MD Unavailable Maru Man PA-C Unavailable Maru Man PA-C Unavailable Jelena David OD Unavailable Fabiano Correa MOTORCYCLE DESIGNER Unavailable [phone] Reason for Visit * Diagnostic Imaging XR (Routine) - Pending Review Specialty Diagnoses / Procedures Referred By Contparviz t Referred To Contact Radiology. Diagnoses Acute cough Procedures XR Chest 2 Views Amalia Zayas MD [address] [place], [place] [address] Phone: tel: fax: Referral ID Status Reason Start Date Expiration Date V isits Requested Visits Authorized [id number] Pending Review 12/04/2024 12/04/2025 1 1 Encounter Details Date Type Department Care Team (Late st Contact Info) Description 12/04/2024 3:55 PM CDT Ancillary Procedure [facility] [address] [place] [address] Amalia Zayas MD [address] [place] [address] Acute cough Social History Tobacco Use Types [...] Answer Date Recorded PHQ-2 Score 1 10/24/2024 [facility] [...] exercise at this level? 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 Gender Identity Female 03/02/2021 5:45 PM CDT Sexual Orientation Straight 02/28/2020 12 :51 AM CDT documented as of this encounter Plan of Treatment Upcoming Encounters Date Type Department Care Team (Latest Contact Info) Description 01/02/2025 1:10 PM CDT Ancillary Procedure [facility] [address] [place] [address] Lauren Claudio PA-C [address] [place] [address] 01/17/2025 10:00 AM CDT Appointment [facility] Respiratory [address] [place] [phone] Lauren Claudio PA-C [address] [place], [place] [phone] 04/16/2025 11:00 AM CDT Virtual Visit [facility] [address]th [place] [phone] Meredith Carrera PA-C [address] [place] [address] documented as of this encounter Procedures Procedure Name Priority Date/Time Associated Diagnosis Comments XR CHEST 2 VIEWS Routine 12/04/2024 4:03 PM CDT Acute cough documented in this encounter [...] CDT EXAM: XR CHEST 2 VIEWS LOCATION: [facility] DATE: 12/04/2024 INDICATION: Acute cough COMPARISON: None. Procedure Note Gareth Murray MD - 12/05/2024 EXAM: XR CHEST 2 VIEWS LOCATION: [facility] DATE: 12/04/2024 INDICATION: Acute cough COMPARISON: None. IMPRESSION: Patchy opacity within the right lung base which may representpneumonia in the correct clinical setting. Otherwise the lungs are clear.There is no pleural effusion or pneumothorax. The heart size is normal. us Amalia Zayas MD [facility] ORDERA BLES Final Result documented in this encounter Visit Diagnoses Diagnosis Acute cough documented in this encounter Additional Health Concerns Assessment Noted Time PHQ-9 Depression Total Score: 5 10/25/19 25 10:38 AM CDT documented as of this encounter Care Teams Bulb Inspector Relationship Specialty Start Date End Date Esha Grimm PA-C [address] [place] [address] PCP - General Family Medicine 05/04/23 Diana Desir, [facility] [address] [place], [place] [phone] Pharmacist Pharmacist 04/17/21 Rain Galaviz PA-C [address] [place] [address] [address] [place] [address] Physician Tank Truck Engine Mechanic Dermatology 04/28/21 Tavia Wyatt MD [address] [place] [address] [address] [place] [address] Dermatology 07/14/21 Erica Farrell APRN CLINICAL FELLOW [address] [facility] [address] [place] [address] Nurse Practitioner Cardiovascular Disease 09/09/21 Rich Barrett MD [address] [place], [place] [address] Physician Ophthalmology 01/21/22 Neil Kent MD 500 [place] [address] Dermatology 02/24/22 [facility] 3033 [place] [address] [facility] Pharmacist 04/07/22 Livan Sharif MD [address] [place], [place] 137[address] Cardiovascular Disease 05/14/22 Catherine Cm MD [address] [place], [place] 94[address]85 Cardiovascular Disease 07/21/22 Valery Veronica PA-C 909 [place], [place] 7[address] Physician Tank Truck Engine Mechanic Dermatology 07/21/22 Brea Quinn APRN CLINICAL FELLOW 500 [place] [address] Nurse Practitioner Dermatology 09/21/22 Jelena David OD [address] [facility] [place] [place] [address] Ophthalmology 06/15/23 Esha Grimm PAUcheC [address] [place] [address] Assigned PCP 07/16/23 Valery Veronica PA-C [address] [place] [address] Physician Tank Truck Engine Mechanic Dermatology 09/19/23 Rey Tay MD [address] [place] [address] MD Gastroenterology 09/20/23 Rocky Zepeda DO [address] [place] [address]35[address] Physician Gastroenterology 09/20/23 Philip Dumont MD [address] [place] [address] 482105 Physician Ophthalmology 09/22/23 Meredith Carrera PA-C [address] [place] [address] 411505 Assigned Gastroenterology Provider 11/01/23 Neil Kent MD [address] [address] Dermatology 11/02/23 [place] [address] [place] [address] Neurological Surgery 12/26/23 Audrey Waite PA-C [address] [place] [address] Physician Tank Truck Engine Mechanic Dermatology 02/28/24 Valery Veronica PA-C [address] [place] [address] Physician Tank Truck Engine Mechanic Dermatology 04/10/24 Herminia Hatch MD [address] [place] [address] Assigned Rheumatology Provider 07/02/24 [place] [address] [place] [address] [place] [address] Ophthalmology 08/30/24 [place] [address] [place] [address] Assigned Neuroscience Provider 09/30/24 Maru Man PA-C [address] [place] [address] Physician Tank Truck Engine Mechanic Dermatology 10/03/24 Maru Man PA-C [address] [place] [address] Physician Tank Truck Engine Mechanic Dermatology 10/22/24 Jelena David, SONJA [address] [place] [address] [place] [address] Assigned Surgical Provider 10/31/24 Fabiano Correa NP [address] [place] [address] Assigned Heart and Vascular Provider 11/30/24 documented as of this encounter
--- OUTSIDE RECORDS SUMMARY | 2024-12-19 14:00 | XMS_ITS | Encounter Summary ---
Author Organization [place] Address [address] [place] [address] Care Team Providers Care Stamping Die Maker Bench Name Role Phone Diana Desir [facility] Unavailable Rain GalavizC Unavailable Tavia Wyatt MD Unavailable [phone] Erica Farrell APRN ANGULAR JS DEVELOPER Unavailable Rich Barrett MD Unavailable [phone] Neil Kent MD Unavailable ThangKendrickDiana Stanislav [facility] Unavailable Livan Sharif MD Unavailable Catherine Cm MD Unavailable + Valery Veronica-C Unavailable Brea Quinn APRN ANGULAR JS DEVELOPER Unavailable Esha Grimm PA-C Primary Care Provider Jelena David OD Unavailable Esha Grimm PA-C Unavailable [phone] Valery Veronica PA-C Unavailable Rey Tay MD Unavailable DuaneRocky DO Unavailable Philip Dumont MD Unavailable Meredith Carrera PA-C Unavailable [phone] Neil Kent MD Unavailable Juan Pablo Emmanuel MD Unavailable Audrey Waite PA-C Unavailable Valery Veronica PA-C Unavailable [phone] Herminia Hatch MD Unavailable Jelena David OD Unavailable [phone] Juan Pablo Emmanuel MD Unavailable Maru ManC Unavailable Maru ManC Unavailable Jelena David OD Unavailable Fabiano Correa NP Unavailable Reason for Referral * Diagnostic Imaging XR (Routine) - Pending Review Specialty Diagnoses / Procedures Referred By Qian mayers Referred To Contact Radiology. Diagnoses Shortness of breath Pneumonia of right lower lobe due to infectious organism Procedures XR Chest 2 Views Lauren Claudio PA-C [address] [place] [address] Phone: tel: fax: Referral ID Status Reason Start Date Expiration Date V isits Requested Visits Authorized [id number] Pending Review 12/19/2024 12/19/2025 1 1 * Med Therapy Management (Routine: Next available opening) - Authorized Specialty Diagnoses / Procedures Referred By Contparviz t Referred To Contact Pharmacist Diagnoses Anxiety Lauren Claudio PA-C [address] [place] [address] Phone: tel: fax: Referral ID Status Reason Start Date Expiration Date V isits Requested Visits Authorized [id number] Authorized 12/19/2024 12/19/2025 1 1 Question Answer Type of MTM: Primary Care Course of Action: Other Reason for Referral: Anxiety Comments [facility] Medication Therapy Management department will contact you to schedule an appointment. You may also schedule the appointment by calling or toll-free at . This service is designed to help you get the most from your medications. A specially trained Pharmacist will work closely with you and your providers to solve any questions, concerns, issues or problems related to your medications. Please bring all of your prescription and non-prescription medications (such as vitamins, vepc-qzu-ivfluzg medications, and herbals) or a detailed medication list to your appointment. If you have a glucose meter or other home monitoring information, please also bring this to your appointment (i.e. blood glucose log, blood pressure log, pain log, etc.). * Consultation (Routine: Next available opening) - Pending Review Specialty Diagnoses / Procedures Referred By Qian mayers Referred To Contact Diagnoses SVT (supraventricular tachycardia) Anxiety Luaren Claudio PA-C [address] [place] [address] Phone: tel: fax: Referral ID Status Reason Start Date Expiration Date V isits Requested Visits Authorized [id number] Pending Review 12/19/2024 12/19/2025 1 1 Question Answer Reason for Referral: Other My Clinical Question Is: Waking in a panic, recommended sleep referral by caridiology team Scheduling Instructions: [facility] will call you to coordinate your care as prescribed by your provider. If you don't hear from a textiles sales representative within 2 business days, please call [phone]. Comments Please be aware that coverage of these services is subject to the terms and limitations of your health insurance plan. Call member services at your health plan with any benefit or coverage questions. [facility] will call you to coordinate your care as prescribed by your provider. If you don't hear from a textiles sales representative within 2 business days, please call [phone]. Reason for Visit * Reason Comments Hospital F/U Encounter Details Date Type Department Care Team (Late st Contact Info) Description 12/19/2024 2:00 PM CDT Office Visit [facility] [address] [place] [phone] Lauren Claudio PA-C [address] [place] [address] Abdominal bloating (Primary Dx); Shortness of breath; SVT (supraventricular tachycardia); Anemia, unspecified type; Anxiety; Pneumonia of right lower lobe due to infectious organism Social History Tobacco Use Types Packs/Day Years [...] PHQ-2 Score 1 10/24/2024 [facility] - Occupational Stress Questionnaire Answer [...] exercise at this level? 20 min 05/07/2024 Riviera Depression Scale Answer Date Recorded Riviera Depression Score 5 01/14/2021 Last EPDS Self [...] motionally safe where you currently live? Yes 12/19/2024 Within the past 12 months, h ave you been hit, slapped, kicked or otherwise physically hurt by someone? No 12/19/2024 Within the past 12 months, h ave you been humiliated or emotionally abused in other ways by your partner or ex-partner? No 12/19/2024 Education Answer Date Recorded What is the highest level of school you have completed or the highest degree you have received? 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 Gender Identity Female 03/02/2021 5:45 PM CDT Sexual Orientation Straight 02/28/2020 12 :51 AM CDT documented as of this encounter Last Filed Vital Signs Vital Sign Reading Time Taken Comments Blood Pressure 113/67 12/19/2024 1:33 PM CDT Pulse 67 12/19/2024 1:33 PM CDT Temperature 36.8 C (98.2 F) 12/19/2024 1:33 PM CDT Respiratory Rate 20 12/19/2024 1:33 PM CDT Oxygen Saturation 98% 12/19/2024 1:33 PM CDT Inhaled Oxygen Concentration - - Weight 92.7 kg (204 lb 6.4 oz) 12/19/2024 1:33 P M CDT Height 167.6 cm (5' 6) 12/19/2024 1:33 PM CDT Body Mass Index 32.99 12/19/2024 1:33 PM CDT documented in this encounter Progress Notes * Lauren Claudio PA-C - 12/19/2024 2:00 PM CDT Assessment & Plan Abdominal bloating Seeing GI for symptoms. Had recent blood lab testing as well as fecal testing. I reviewed Meredith Carrera's recent results notes indicating patient try the low FODMAP diet and the simethicone. Reviewed this today and sent simethicone for her to try. She would like me to update the GI team. Message sent in the chart. She is having some sharp discomfort that comes and goes in the left upper abdomen. Unsure what the cause could be (possible the bloating/gas). Nothing noted on x-ray from 2 weeks ago. Not tender on exam today. - simethicone (MYLICON) 125 MG chewable tablet; Take 1 tablet (125 mg) by mouth 4 times daily as needed for intestinal gas. Shortness of breath Could be related to the recent illnesses. Recheck PFTs. Recheck x-ray chest in 2 weeks. Lungs clear today. - General PFT Lab (Please always keep checked); Future - Pulmonary Function Test; Future - XR Chest 2 Views; Future SVT (supraventricular tachycardia) Cardiology team wanted patient to follow up with sleep management due to her episodes of waking in a panic. Referral placed. - Adult Sleep Eval & Management Duty Manager Referral; Future Anemia, unspecified type Noted in the last two draws. Perhaps iron deficiency related. Checking iron levels. - Iron and iron binding capacity; Future - Ferritin; Future - Iron and iron binding capacity - Ferritin Anxiety Refilled Paxil today. She feels her anxiety has been high recently (perhaps due to her recent health problems with the influenza B and pneumonia as well as the GI symptoms noted above). Discussed options and she would like to see MTM. Referral placed. She has a therapist. Discussed short term psychiatry but she wanted to start with MTM, Diana Desir. - Adult Sleep Eval & Management Duty Manager Referral; Future - Med Therapy Management Referral - PARoxetine (PAXIL) 40 MG tablet; Take 1 tablet (40 mg) by mouth every morning. NEED APPT FOR FURTHER REFILLS. Pneumonia of right lower lobe due to infectious organism Noted on x-ray 2 weeks ago. Recheck in 2 weeks. Lune clear today. I recommended using the Mucinex for the production she is getting. - XR Chest 2 Views; Future MED REC REQUIRED Post Medication Reconciliation Status: Discharge medications reconciled and changed, see notes/orders Review of external notes as documented elsewhere in note Review of the result(s) of each unique test - As noted above Discussion of management or test interpretation with external physician/other qualified healthcare professional/appropriate source - GI team Ordering of each unique test Prescription drug management 40 minutes spent by me on the date of the encounter doing chart review, history and exam, documentation and further activities per the note The longitudinal plan of care for the diagnosis(es)/condition(s) as documented were addressed during this visit. Due to the added complexity in care, I will continue to support Kim in the subsequent management and with ongoing continuity of care. Subjective Kim is a 24 year old, presenting for the following health issues: Hospital F/U 12/19/2024 1:31 PM Additional Questions Roomed by Eileen Perez Accompanied by Self History of Present Illness Reason for visit: Follow up on recent labs, more tests, ect She eats 2-3 servings of fruits and vegetables daily.She consumes 1 sweetened beverage(s) daily.Sheexercises with enough effort to increase her heart rate 20 to 29 minutes per day. She exercises with enough effort to increase her heart rate 3 or less days per week. She is taking medications regularly. ED/UC Followup: Facility: [facility] Date of visit: 11/22 Reason for visit: flu, tachycardia Current Status: better but has shortness of breath and coughing getting pain under left rib, cough with productive green phlegm Patient is a 24 year old female with history of SVT (following cardiology) as well as eosinophilic esophagitis and psoriasis. She had influenza B recently and then diagnosed with pneumonia. She was treated with amoxicillin for 7 days and azithromycin for 5 days. She continues to have production, cough and shortness of breath. She reports she is feeing sharp pain in the left lower ribs (come and goes) She also has been following GI for bloating and stool changes. She reports she has mixed diarrhea and constipation, a lot of bloating and gassy as well as occasional blood in the stool. She is feeling bloated all the time no matter what she eats. Objective BP 113/67 (BP Location: Left arm, Patient Position: Chair, Cuff Size: Adult Regular) Pulse 67 Temp 98.2 ??F (36.8 ??C) (Oral) Resp 20 Ht 1.676 m (5' 6) Wt 92.7 kg (204 lb 6.4 oz) LMP (LMP Unknown) SpO2 98% BMI 32.99 kg/m?? Body mass index is 32.99 kg/m??. Physical Exam GENERAL: No acute distress HEENT: Normocephalic, CARDIAC: Regular rate and rhythm. No murmurs. PULMONARY: Lungs are clear to auscultation bilaterally. No wheezes, rhonchi or crackles. GI: Active bowel sounds, abdomen is soft, diffuse tenderness in the lower abdomen, no rebound. No hepatosplenomegaly or masses NEURO: Alert and non-focal Signed Electronically by: Lauren Claudio PA-C documented in this encounter Plan of Treatment Upcoming Encounters Date Type Department Care Team (Latest Contact Info) Description 01/02/2025 1:10 PM CDT Ancillary Procedure [address] [phone] Lauren Claudio PA-C [address] [place] [phone] 01/17/2025 10:00 AM CDT Appointment [facility] Respiratory [facility] [place] [phone] Lauren Claudio PA-C [address] [place] [address] 04/16/2025 11:00 AM CDT Virtual Visit [facility] [address] 4th [place] [phone] Meredith Carrera PA-C [address] [place] [address] Scheduled Orders Name Type Priority Associated Diagnoses Orde r Schedule General PFT Lab (Please always keep checked) PFT Routine Shortness of breath Expected: 06/20/2025 (Approximate), Expires: 12/19/2025 Pulmonary Function Test PFT Routine Shortness of breath Expected: 12/19/2024 (Approximate), Expires: 12/19/2025 XR Chest 2 Views Imaging Routine Shortness of breath Pneumonia of right lower lobe due to infectious organism Expected: 01/02/2025 (Approximate), Expires: 01/18/2025 Scheduled Referrals Name Type Priority Associated Diagnoses Orde r Schedule Adult Sleep Eval & Management Duty Manager Referral Referral Routine: Next available opening SVT (supraventricular tachycardia) Anxiety Expected: 12/19/2024 (Approximate), Expires: 12/19/2025 Med Therapy Management Referral Referral Routine: Next available opening Anxiety Ordered: 12/19/2024 documented as of this encounter Procedures Procedure Name Priority Date/Time Associated Diagnosis Comments IRON AND IRON BINDING CAPACITY Routine 12/19/2024 2:49 PM CDT Anemia, unspecified type FERRITIN Routine 12/19/2024 2:49 PM CDT Anemia, unspecified type documented in this encounter Results * Ferritin (12/19/2024 2:49 PM CDT) Ferritin 18 6 - 175 ng/mL 12/20/2024 1:46 AM CDT [facility] Blood BLOOD SPECIMEN / Unknown Venipuncture / Unknown 12/19/2024 2:49 PM CDT 12/19/2024 2:49 PM CDT us Lauren Claudio PA-C LAB - BLOOD ORDERABLES Fin al Result [facility] [place] [facility] [address] [facility], [address] [place] [address] * Iron and iron binding capacity (12/19/2024 2:49 PM CDT) Iron 122 37 - 145 ug/dL 12/20/2024 1:46 AM CDT [facility] Iron Binding Capacity 378 240 - 430 ug/dL 12/20/2024 1:46 AM CDT [facility] Iron Sat Index 32 15 - 46 % 12/20/2024 1:46 AM CDT [facility] Blood BLOOD SPECIMEN / Unknown Venipuncture / Unknown 12/19/2024 2:49 PM CDT 12/19/2024 2:49 PM CDT us Lauren Claudio PA-C LAB - BLOOD ORDERABLES Fin al Result [facility] [place] [facility] [address] [facility], [address] [place] [address], [facility] documented in this encounter Visit Diagnoses Diagnosis Abdominal bloating- Primary Flatulence, eructation, and gas pain Shortness of breath SVT (supraventricular tachycardia) Other specified cardiac dysrhythmias Anemia, unspecified type Anxiety Anxiety state, unspecified Pneumonia of right lower lobe due to infectious organism documented in this encounter Additional Health Concerns Assessment Noted Time PHQ-9 Depression Total Score: 5 10/25/19 25 10:38 AM CDT documented as of this encounter Care Teams Stamping Die Maker Bench Relationship Specialty Start Date End Date Esha Grimm PA-C [address] [place] [phone] PCP - General Family Medicine 05/04/23 [facility] [address] [place] [address] Pharmacist Pharmacist 04/17/21 Rain Galaviz PA-C [address] [place] [address] [address] [place] [address] Physician Commission Associate Dermatology 04/28/21 Tavia Wyatt MD [address] [place] [address] [address] [place] [address] Dermatology 07/14/21 Erica Farrell APRN ANGULAR JS DEVELOPER [address] [place] [address] Nurse Practitioner Cardiovascular Disease 09/09/21 Rich Barrett MD [address] [place] [address] Physician Ophthalmology 01/21/22 Neil Kent MD [address] [place], [place] [phone] Dermatology 02/24/22 Diana Desir, [facility] [address] [place] [address] Assigned [place] Pharmacist 04/07/22 Livan Sharif MD [address] [id number] Cardiovascular Disease 05/14/22 Catherine Cm MD [address] [facility] [address] [address] Cardiovascular Disease 07/21/22 Valery Veronica PA-C [address] [place], [place] [phone] Physician Commission Associate Dermatology 07/21/22 Brea Quinn APRN ANGULAR JS DEVELOPER [address] [place] [address] Nurse Practitioner Dermatology 09/21/22 Jelena David OD [address] [place] [address] Ophthalmology 06/15/23 Ehsa Grimm PA-C [address] [place] [phone] Assigned PCP 07/16/23 Valery Veronica PA-C [address] [place] [address] Physician Commission Associate Dermatology 09/19/23 Rey Tay MD [address] [place] [address] [phone] MD Gastroenterology 09/20/23 Rocky Zepeda DO [address] [place] [address] Physician Gastroenterology 09/20/23 Philip Dumont MD [address] [place] [address] 937185 Physician Ophthalmology 09/22/23 Meredith Carrera PA-C [address] [place] [address] [phone] Assigned Gastroenterology Provider 11/01/23 Neil Kent MD [address] [address] Dermatology 11/02/23 [place] [address] [place] [address] Neurological Surgery 12/26/23 Audrey Waite PA-C [address] [place] [address] Physician Commission Associate Dermatology 02/28/24 Valery Veronica PA-C [id number] [place] [address] Physician Commission Associate Dermatology 04/10/24 Herminia Hatch MD [address] [place] [address] Assigned Rheumatology Provider 07/02/24 Jelena David OD [address] [place] [address] [place] [address] Ophthalmology 08/30/24 [place] [address] [place] [address] Assigned Neuroscience Provider 09/30/24 Maru Man PA-C [address] [place] [address] Physician Commission Associate Dermatology 10/03/24 Maru Man PA-C [address] [place] [address] Physician Commission Associate Dermatology 10/22/24 Jelena David OD [address] [place] [address] [place] [address] Assigned Surgical Provider 10/31/24 Fabiano Correa NP [address] [place] [address] Assigned Heart and Vascular Provider 11/30/24 documented as of this encounter
--- OUTSIDE RECORDS SUMMARY | 2024-12-27 10:00 | XMS_ITS | Encounter Summary ---
Author Organization [facility] Address [address] [place] [address] Care Team Providers Care Dining Room Server Name Role Phone Diana Desir [facility] Unavailable Rain GalavizC Unavailable [phone] Tavia Wyatt MD Unavailable [phone] Erica Farrell APRN FAMILY ASSESSMENT WORKER Unavailable Rich Barrett MD Unavailable [phone] Neil Kent MD Unavailable ThangKendrickDiana Stanislav [facility] Unavailable [phone] Livan Sharif MD Unavailable Catherine Cm MD Unavailable + Valery Veronica-C Unavailable [phone] Brea Quinn APRN FAMILY ASSESSMENT WORKER Unavailable Esha Grimm PA-C Primary Care Provider Jelena David OD Unavailable Esha Grimm PA-C Unavailable [phone] Valery Veronica PA-C Unavailable [phone] Rey Tay MD Unavailable DuaneRocky Unavailable Philip Dumont MD Unavailable Meredith Carrera PA-C Unavailable Neil Kent MD Unavailable Juan Pablo Emmanuel MD Unavailable Audrey Waite PA-C Unavailable Valery Veronica PA-C Unavailable [phone] Herminia Hatch MD Unavailable Jelena David OD Unavailable Juan Pablo Emmanuel MD Unavailable Maru Man PA-C Unavailable Maru ManC Unavailable Jelena David OD Unavailable Fabiano Correa NP Unavailable Reason for Visit * Reason Onset Date Comments Vaginal Discharge En[facility] automa [facility] Problem 12/28/2024 Encounter Details Date Type Department Care Team (Late st Contact Info) Description 12/27/2024 10:00 AM CDT E-Visit [facility] [id number] [place] [phone] Esha Grimm PA-C [address] [place] [address] Vaginal Discharge (Entered automatically b... Social [...] PHQ-2 Score 1 10/24/2024 [facility] [...] exercise at this level? 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 Given your symptoms, I would like you to do a lab-only visit to determine what is causing them. I have placed the orders. Please schedule an appointment with the lab right here in [facility], or call [phone]. I will let you know when the results are back and next steps to take. Schedule a Lab Only appointment here. documented in this encounter Miscellaneous Notes * Telephone Encounter - Esha Grimm PA-C - 12/28/2024 7:21 AM CDT Provider E-Visit time total (minutes): 7 minutes documented in this encounter Plan of Treatment Upcoming Encounters Date Type Department Care Team (Latest Contact Info) Description 01/02/2025 1:10 PM CDT Ancillary Procedure [address] [phone] Lauren Claudio PA-C [address] [place] [address] 01/17/2025 10:00 AM CDT Appointment [place] [id number] [place] [phone] Lauren Claudio PA-C [address] [place] [address] 04/16/2025 11:00 AM CDT Virtual Visit [facility] [address] 4th [place] [phone] Meredith Carrera PA-C [address] [place] [phone] Scheduled Orders Name Type Priority Associated Diagnoses Orde r Schedule Wet preparation Microbiology Routine Vaginal discharge Expected: 12/28/2024 (Approximate), Expires: 01/04/2025 documented as of this encounter Results * HIV Antigen Antibody Combo (12/28/2024 9:16 AM CDT) [facility] HIV Antigen Antibody Combo Nonreactive Nonreactive 12/28/2024 2:35 PM CDT U LABORATORY Comment:Negative HIV-1 p24 [...] BLOOD SPECIMEN / Unknown Venipuncture / Unknown 12/28/2024 9:16 AM CDT 12/28/2024 9:16 AM CDT us Esha Grimm PA-C LAB - BLOOD ORDERABLES Final R esult LABORATORY [facility] [place] Core Lab [address] [facility], [address] [place] [address] * Herpes Simplex Virus 1 and 2 IgG (12/28/2024 9:16 AM CDT) [facility] HSV Type 1 IgG Instrument Value 0.37 <0.90 Index 12/28/2024 9:41 PM CDT SPECIALTY CORE/PROT/EN DO Herpes Simplex Virus Type 1 IgG Antibody No HSV-1 IgG antibodies detected. No HSV-1 IgG antibodies detected 12/28/2024 9:41 PM CDT SPECIALTY LABS HSV Type 2 IgG Instrument Value 0.11 <0.90 Index 12/28/2024 9:41 PM CDT SPECIALTY CORE/PROT/EN DO Herpes Simplex Virus Type 2 IgG Antibody No HSV-2 IgG antibodies detected. No HSV-2 IgG antibodies detected 12/28/2024 9:41 PM CDT SPECIALTY LABS Blood BLOOD SPECIMEN / Unknown Venipuncture / Unknown 12/28/2024 9:16 AM CDT 12/28/2024 9:16 AM CDT us Esha Grimm PA-C LAB - BLOOD ORDERABLES Final R esult [facility] SPECIALTY CORE/PROT/ENDO [facility] Specialty Core/Prot/Endo [address] [facility] [address], Room [id number] [place] [address] UM SPECIALTY LABS [facility] Specialty Lab [address] [facility] [address] [facility], Room [address] [phone] * Treponema Abs w Reflex to RPR and Titer (12/28/2024 9:16 AM CDT) Treponema Antibody Total Nonreactive Nonreactive 12/28/2024 9:46 PM CDT SPECIALTY LABS Blood BLOOD SPECIMEN / Unknown Venipuncture / Unknown 12/28/2024 9:16 AM CDT 12/28/2024 9:16 AM CDT Esha Grimm PA-C LAB - BLOOD ORDERABLES Final R esult Performing Organization Address City/[facility]/ZIP Co de Phone Number UM SPECIALTY CORE/PROT/ENDO UM Specialty Core/Prot/Endo [address] [facility] [address] [facility], [id number] [place] [address] SPECIALTY LABS Specialty Lab [address] [facility] [address] [facility], Room [address] [address], [facility] * Chlamydia & Gonorrhea by PCR, [facility] Collect (12/28/2024 9:07 AM CDT) Chlamydia Trachomatis Negative Negative 12/28/2024 5:25 PM CDT [facility] Comment: Negative for C. trachomatis rRNA by screwmaker automatic mediated amplification. A negative result by screwmaker automatic mediated amplification does not preclude the presence of infection because results are dependent on proper and adequate collection, absence of inhibitors and sufficient rRNA to be detected. Neisseria gonorrhoeae Negative Negative 12/28/2024 5:25 PM CDT [facility] Comment:Negative for N. gono rrhoeae rRNA by screwmaker automatic mediated amplification. A negative result by screwmaker automatic mediated amplification does not preclude the presence of C. trachomatis infection because results are dependent on proper and adequate collection, absence of inhibitors and sufficient rRNA to be detected. CTNG Specimen Source Vagina 12/28/2024 5:25 PM CDT [facility] Urine VOIDED URINE SPECIMEN / Unknown Non-blood Collection / Unknown 12/28/2024 9:07 AM CDT 12/28/2024 9:07 AM CDT Esha Grimm PA-C LAB - MICRO GENERAL ORDERABLES Final Result [facility] Inf. Diseases Diag. Lab [address] [facility], [address] [place] [address], [facility] * HCG qualitative urine (12/28/2024 9:07 AM CDT) hCG Urine Qualitative Negative Negative REINA 12/28/2024 9:41 AM CDT LABORATORY Comment:This test is for scr eening purposes. Results should be interpreted along with the clinical picture. Confirmation testing is available if warranted by ordering [id number], HCG Quantitative . Urine URINE SPECIMEN / Unknown Non-blood Collection / Unknown 12/28/2024 9:07 AM CDT 12/28/2024 9:37 AM CDT Esha Grimm PA-C LAB - URINE ORDERABLES Final R esult LABORATORY [facility] [address] [facility] Lab (1st floor, no room number) [place] [address], [facility] * UA Macroscopic with reflex to Microscopic and Culture (12/28/2024 9:07 AM CDT) Color Urine Straw Colorless, Straw, Light Yellow, Yellow 12/28/2024 11:06 AM CDT LABORATORY Appearance Urine Clear Clear 12/29/19 11:06 AM CDT LABORATORY Glucose Urine Negative Negative mg/dL 12/28/2024 11:06 AM CDT LABORATORY Bilirubin Urine Negative Negative 11:06 AM CDT LABORATORY Ketones Urine Negative Negative mg/dL 12/28/2024 11:06 AM CDT LABORATORY Specific [place] Urine 1.006 1.003 - 1.035 12/28/2024 11:06 AM CDT [facility] Blood Urine Negative Negative 12/28/2024 11:06 AM CDT [facility] pH Urine 5.0 5.0 - 7.0 12/28/2024 11:06 AM CDT [facility] Protein Albumin Urine Negative Negative mg/dL 12/28/2024 11:06 AM CDT [facility] Urobilinogen Urine Normal Normal mg/dL 12/28/2024 11:06 AM CDT [facility] Nitrite Urine Negative Negative 12/28/2024 11:06 AM CDT [facility] Leukocyte Esterase Urine Negative Negative 12/28/2024 11:06 AM CDT [facility] Urine URINE SPECIMEN / Unknown Non-blood Collection / Unknown 12/28/2024 9:07 AM CDT 12/28/2024 9:37 AM CDT Narrative [facility]AT[facility] - 12/28/2024 11:06 AM CDT Microscopic not indicated us Esha Grimm PA-C LAB - URINE ORDERABLES Final R esult LABORATORY [facility] [address] [facility] Lab (1st floor, no room number) [place] [address], [facility] * Multiplex Vaginal Panel by PCR (12/28/2024 8:55 AM CDT) Bacterial Vaginosis Organism DNA Negative Negative 12/28/2024 11:49 AM CDT [facility] Comment: Indicator DNA target(s) related to bacterial vaginosis organisms is/are not detected. Organisms associated with bacterial vaginosis that are targeted in this assay include Atopobium spp., Bacterial Vaginosis-Associated Bacterium-2, and Megasphaera-1. Detected organisms are not reported individually. Pily Group DNA Not Detected Not Detected 12/28/2024 11:49 AM CDT [facility] Comment:Pily group specie s detected by this target include C. albicans, C. tropicalis, C. parapsilosis, C. dubliniensis. Pily glabrata / Pily krusei DNA Not Detected Not Detected 12/28/2024 11:49 AM CDT [facility] Trichomonas vaginalis DNA Not Detected Not Detected 12/28/2024 11:49 AM CDT [facility] Swab VAGINAL STRUCTURE / Unknown Non-blood Collection / Unknown 12/28/2024 8:55 AM CDT 12/28/2024 9:16 AM CDT Narrative [facility] - 12/28/2024 11:49 AM CDT The Xpert Xpress MVP test, performed on the [employer], is an automated, qualitative in vitro diagnostic test for the detection of DNA targets from anaerobic bacteria associated with bacterial vaginosis, Pily species associated with vulvovaginal candidiasis, and Trichomonas vaginalis. The assay uses clinician-collected and self-collected vaginal swabs from patients who are symptomatic for vaginitis/ vaginosis. The Xpert Xpress MVP test utilizes real-time polymerase chain reaction (PCR) for the amplification of specific DNA targets and utilizes fluorogenic target-specific hybridization probes to detect and differentiate DNA. It is intended to aid in the diagnosis of vaginal infections in women with a clinical presentation consistent with bacterial vaginosis, vulvovaginal candidiasis, or trichomoniasis. The assay targets three anaerobic microorgansims that are associated with bacterial vaginosis (BV). Other organisms that are not detected by the Xpert Xpress MVP test have also been reported to be associated with BV. The BV organism and Pily species targets of the Xpert Xpress MVP test can be commensal in women; positive results must be considered in conjunction with other clinical and patient information to determine the disease status. us Esha Grimm PA-C LAB - MICRO GENERAL ORDERABLES Final Result [facility] Inf. Diseases Diag. Lab [address] [facility], [address] [place] [address], [facility] documented in this encounter Visit Diagnoses Diagnosis Vaginal discharge- Primary Leukorrhea, not specified as infective documented in this encounter Additional Health Concerns Assessment Noted Time PHQ-9 Depression Total Score: 5 10/25/19 25 10:38 AM CDT documented as of this encounter Care Teams Dining Room Server Relationship Specialty Start Date End Date Esha Grimm PA-C [address] [place] [address] PCP - General Family Medicine 05/04/23 Diana Desir, [facility] [address] [place] [address] Pharmacist Pharmacist 04/17/21 Rain Galaviz PA-C [address] [place] [address] [address] [facility] [place] [address] Physician Rug Hooker Dermatology 04/28/21 Tavia Wyatt MD [address] [place] [address] [address] [facility] [address] Dermatology 07/14/21 Erica Farrell APRN FAMILY ASSESSMENT WORKER [address] [place] [address] Nurse Practitioner Cardiovascular Disease 09/09/21 Rich Barrett MD [address] [place] [address] Physician Ophthalmology 01/21/22 Neil Kent MD [address] [place] [address] Dermatology 02/24/22 Diana Desir, [facility] [address] [place] [address] Assigned MTM Pharmacist 04/07/22 Livan Sharif MD [address] [place] [address] Cardiovascular Disease 05/14/22 Catherine Cm MD [address] [facility] [address] [place] [address] Cardiovascular Disease 07/21/22 Valery Veronica PA-C [address] [place] [address] Physician Rug Hooker Dermatology 07/21/22 Brea Quinn APRN FAMILY ASSESSMENT WORKER [address] [place] [address] [phone] Nurse Practitioner Dermatology 09/21/22 Jelena David OD [address] [place] [address] [place] [address] Ophthalmology 06/15/23 Esha Grimm PA-C [address] [place] [address] Assigned PCP 07/16/23 Valery Veronica PA-C [address] [place] [address] Physician Rug Hooker Dermatology 09/19/23 Rey Tay MD [address] [place] [address] Gastroenterology 09/20/23 Rocky Zepeda DO [address] [place] [address] [phone] Physician Gastroenterology 09/20/23 Philip Dumont MD [address] [place] [address] Physician Ophthalmology 09/22/23 Meredith Carrera PA-C [address] [place] [address] Assigned Gastroenterology Provider 11/01/23 Neil Kent MD [address] [address] Dermatology 11/02/23 [place] [address] [place] [address] [phone] Neurological Surgery 12/26/23 Audrey Waite PA-C [address] [place] [address] Physician Rug Hooker Dermatology 02/28/24 Valery Veronica PA-C 479893 [place] [address] Physician Rug Hooker Dermatology 04/10/24 Herminia Hatch MD [address] [place] [address] [phone] Assigned Rheumatology Provider 07/02/24 Jelena David OD [address] [place] [address] [place] [address] Ophthalmology 08/30/24 Juan Pablo Emmanuel [place] [id number] [place] [address] [place] [address] Assigned Neuroscience Provider 09/30/24 Maru Man PA-C [address] [place] [address] Physician Rug Hooker Dermatology 10/03/24 Maru Man PA-C [address] [place] [address] Physician Rug Hooker Dermatology 10/22/24 Jelena David OD [facility] [facility] [place] [address] Assigned Surgical Provider 10/31/24 Fabiano Correa NP [address] [place] [address] Assigned Heart and Vascular Provider 11/30/24 documented as of this encounter
--- OUTSIDE RECORDS SUMMARY | 2024-12-28 08:55 | XMS_ITS | Encounter Summary ---
Author Organization [place] Address [address] [place] [address] Care Team Providers Care Maintenance Supervisor 2Nd Shift Name Role Phone Diana Desir [facility] Unavailable [phone] Rain GalavizC Unavailable Tavia Wyatt MD Unavailable [phone] Erica Farrell APRN RN CARE MANAGER Unavailable Rich Barrett MD Unavailable [phone] Neil Kent MD Unavailable ThangKendrickDiana Stanislav [facility] Unavailable Livan Sharif MD Unavailable Catherine Cm MD Unavailable + Valery Veronica-C Unavailable Brea Quinn APRN RN CARE MANAGER Unavailable [phone] Esha Grimm PA-C Primary Care Provider Jelena David OD Unavailable Esha Grimm PA-C Unavailable [phone] Valery Veronica PA-C Unavailable Rey Tay MD Unavailable DuaneRocky Unavailable Philip Dumont MD Unavailable [phone] Meredith Carrera PA-C Unavailable [phone] Neil Kent MD Unavailable Juan Pablo Emmanuel MD Unavailable Audrey Waite PA-C Unavailable [phone] Valery Veronica PA-C Unavailable Herminia Hatch MD Unavailable Jelena David OD Unavailable Juan Pablo Emmanuel MD Unavailable Maru Man-C Unavailable [phone] Maru Man-C Unavailable [phone] Jelena David OD Unavailable [phone] Fabiano Correa NP Unavailable [phone] Encounter Details Date Type Department Care Team (Late st Contact Info) Description 12/28/2024 8:55 AM CDT Lab [facility] [address] [place] [phone] Vaginal discharge Social History Tobacco Use Types [...] week 05/07/2024 How often do you attend [facility] or islam services? 1 to 4 [...] Answer Date Recorded PHQ-2 Score 1 10/24/2024 [facility] [...] exercise at this level? 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 Gender Identity Female 03/02/2021 5:45 PM CDT Sexual Orientation Straight 02/28/2020 12 :51 AM CDT documented as of this encounter Plan of Treatment Upcoming Encounters Date Type Department Care Team (Latest Contact Info) Description 01/02/2025 1:10 PM CDT Ancillary Procedure [facility] [address] [place] [phone] Lauren Claudio PA-C [address] [place], [place] [phone] 01/17/2025 10:00 AM CDT Appointment [facility] Respiratory [address] [place] [phone] Lauren Claudio PA-C [address] [place] [address] 04/16/2025 11:00 AM CDT Virtual Visit [facility] [address] 4[address] [place] [phone] Meredith Carrera PA-C [address] [place] [phone] documented as of this encounter Procedures Procedure Name Priority Date/Time Associated Diagnosis Comments 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 IGG Routine 12/28/2024 9:16 AM CDT Vaginal discharge HIV ANTIGEN ANTIBODY COMBO Routine 12/28/2024 9:16 AM CDT Vaginal discharge TREPONEMA ABS W REFLEX TO RPR AND TITER Routine 12/28/2024 9:16 AM CDT Vaginal discharge HCG QUALITATIVE URINE Routine 12/28/2024 9:07 AM CDT Vaginal discharge CHLAMYDIA TRACHOMATIS/NEISSERI A GONORRHOEAE BY PCR Routine 12/28/2024 9:07 AM CDT Vaginal discharge UA MACROSCOPIC WITH REFLEX TO MICRO AND CULTURE Routine 12/28/2024 9:07 AM CDT Vaginal discharge MULTIPLEX VAGINAL PANEL BY PCR Routine 12/28/2024 8:55 AM CDT Vaginal discharge documented in this encounter Results * HIV Antigen Antibody Combo (12/28/2024 9:16 AM CDT) HIV Antigen Antibody Combo Nonreactive Nonreactive 12/28/2024 2:35 PM CDT [facility] Comment:Negative HIV-1 p24 [...] BLOOD ORDERABLES Final R esult [facility] [place] [facility] [address] [facility], [address] [phone] * Herpes Simplex Virus 1 and 2 IgG (12/28/2024 9:16 AM CDT) HSV Type 1 IgG Instrument Value 0.37 [...] R esult SPECIALTY CORE/PROT/ENDO Specialty Core/Prot/Endo [address] [facility] Unit [facility], Room [id number] [place] [address] SPECIALTY LABS Specialty Lab [address] [facility], Room [address] [phone], [facility] * Treponema Abs w Reflex to RPR and Titer (12/28/2024 9:16 AM CDT) Treponema Antibody Total Nonreactive Nonreactive 12/28/2024 9:46 PM CDT SPECIALTY LABS Blood BLOOD SPECIMEN / Unknown Venipuncture / Unknown 12/28/2024 9:16 AM CDT 12/28/2024 9:16 AM CDT Esha Grimm PA-C LAB - BLOOD ORDERABLES Final R esult SPECIALTY CORE/PROT/ENDO UM Specialty Core/Prot/Endo [address] [facility] [address], Room [address] SPECIALTY LABS Specialty Lab [address] [facility] [address] [facility], Room [address] * Chlamydia & Gonorrhea by PCR, [facility] - Clinic Collect (12/28/2024 9:07 AM CDT) Pathologist [facility] Chlamydia Trachomatis Negative Negative 12/28/2024 5:25 PM CDT [facility] Comment: Negative for C. trachomatis rRNA by shuffle board operator mediated amplification. A negative result by shuffle board operator mediated amplification does not preclude the presence of infection because results are dependent on proper and adequate collection, absence of inhibitors and sufficient rRNA to be detected. Neisseria gonorrhoeae Negative Negative 12/28/2024 5:25 PM CDT [facility] Comment:Negative for N. gono rrhoeae rRNA by shuffle board operator mediated amplification. A negative result by shuffle board operator mediated amplification does not preclude the [...] [facility] Inf. Diseases Diag. Lab 500 [facility], [address] [place] [address], [facility] * HCG qualitative urine (12/28/2024 9:07 AM CDT) hCG Urine Qualitative Negative Negative REINA 12/28/2024 9:41 AM CDT LABORATORY Comment:This test is for scr eening purposes. Results should be interpreted along with the clinical picture. Confirmation testing is available if warranted by ordering [id number], HCG Quantitative . Urine URINE SPECIMEN / Unknown Non-blood Collection / Unknown 12/28/2024 9:07 AM CDT 12/28/2024 9:37 AM CDT us Esha Grimm PA-C LAB - URINE ORDERABLES Final R esult LABORATORY [facility] Acute Care Lab [address] [facility] Lab (1st floor, no room number) [place] [address], [facility] * UA Macroscopic with reflex to [...] mg/dL 12/28/2024 11:06 AM CDT LABORATORY Specific [place] Urine 1.006 1.003 - 1.035 12/28/2024 11:06 AM CDT LABORATORY Blood Urine Negative Negative 12/28/2024 11:06 AM CDT LABORATORY pH Urine 5.0 5.0 - 7.0 12/28/2024 11:06 AM CDT LABORATORY Protein Albumin Urine Negative Negative mg/dL 12/28/2024 11:06 AM CDT LABORATORY Urobilinogen Urine Normal Normal mg/dL 12/28/2024 11:06 AM CDT LABORATORY Nitrite Urine Negative Negative 12/28/2024 11:06 AM CDT [facility] Leukocyte Esterase Urine Negative Negative 12/28/2024 11:06 AM CDT [facility] Urine URINE SPECIMEN / Unknown Non-blood Collection / Unknown 12/28/2024 9:07 AM CDT 12/28/2024 9:37 AM CDT Narrative [facility] - 12/28/2024 11:06 AM CDT Microscopic not indicated us Esha Grimm PA-C LAB - URINE ORDERABLES Final R esult LABORATORY [facility] Acute Care Lab [address] Lab (1st floor, no room number) [place] [address] * Multiplex Vaginal Panel by PCR (12/28/2024 [...] Xpert Xpress MVP test, performed on the [employer], is an automated, qualitative in vitro [...] patient information to determine the disease status. Esha Grimm PA-C LAB - MICRO GENERAL ORDERABLES Final Result [facility] Inf. Diseases Diag. Lab [address] [facility], [address] [place] [address] documented in this encounter Visit Diagnoses Diagnosis Vaginal discharge Leukorrhea, not specified as infective documented in this encounter Additional Health Concerns Assessment Noted Time PHQ-9 Depression Total Score: 5 10/25/19 25 10:38 AM CDT documented as of this encounter Care Teams Maintenance Supervisor 2Nd Shift Relationship Specialty Start Date End Date Esha Grimm PA-C [address] [place] [phone] PCP - General Family Medicine 05/04/23 Diana Desir [facility] [address] [place] [address] Pharmacist Pharmacist 04/17/21 Rain Galaviz PA-C [address] [place] [address] [address] [place] [address] Physician Strategic Account Executive Dermatology 04/28/21 Tavia Wyatt MD [address] [place] [address] [address] [place], [place] [address] Dermatology 07/14/21 Erica Farrell APRN RN CARE MANAGER [address] [place], [place] [phone] Nurse Practitioner Cardiovascular Disease 09/09/21 Rich Barrett MD [address] [place], [place] [phone] Physician Ophthalmology 01/21/22 Neil Kent MD [address] [place] [address] [phone] Dermatology 02/24/22 Diana Desir, [facility] [address] [place] [address] Assigned [facility] Pharmacist 04/07/22 Livan Sharif MD [address] [place], [place] [address] Cardiovascular Disease 05/14/22 Catherine Cm MD [address] [place] [address] Cardiovascular Disease 07/21/22 Valery Veronica, PA-C [address] [place] [address] Physician Strategic Account Executive Dermatology 07/21/22 Brea Quinn APRN CNP [address] [place] [address] Nurse Practitioner Dermatology 09/21/22 Jelena David OD [address] [place] [address] [place] [address] MD Ophthalmology 06/15/23 Esha Grimm PA-C [address] [place] [phone] Assigned PCP 07/16/23 Valery Veronica PA-C [address] [place] [address] Physician Strategic Account Executive Dermatology 09/19/23 Rey Tay MD [address] [place] [address] [phone] Gastroenterology 09/20/23 Rocky Zepeda DO [address] [place] [address] [phone] Physician Gastroenterology 09/20/23 Philip Dumont MD [address] [place] [phone] Physician Ophthalmology 09/22/23 Meredith Carrera PA-C [address] [place] [address] [phone] Assigned Gastroenterology Provider 11/01/23 Neil Kent MD [address] [place] [address] Dermatology 11/02/23 [place] [address] [place] [address] Neurological Surgery 12/26/23 Audrey Waite PA-C [address] [place] [address] Physician Strategic Account Executive Dermatology 02/28/24 Valery Veronica PA-C [address]86 [place], [place] [address] Physician Strategic Account Executive Dermatology 04/10/24 Herminia Hatch MD [address] [place] [address] [phone] Assigned Rheumatology Provider 07/02/24 Jelena David OD [address] [place] [address] [place] [address] Ophthalmology 08/30/24 [place] [address] [place] [address] Assigned Neuroscience Provider 09/30/24 Maru Man PA-C [address] [place] [address] Physician Strategic Account Executive Dermatology 10/03/24 Maru Man PA-C [address] [place] [address] Physician Strategic Account Executive Dermatology 10/22/24 Jelena David OD [address] [facility] [place] [address] Assigned Surgical Provider 10/31/24 Fabiano Correa NP [address] [place] [address] Assigned Heart and Vascular Provider 11/30/24 documented as of this encounter
--- OUTSIDE RECORDS SUMMARY | 2024-12-29 19:00 | XMS_ITS | Encounter Summary ---
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 Name Role Phone Needs Pcp, Assignment Primary Care Provider [phone] Reason for Referral * Procedure/Equipment (Routine) - Incomplete Specialty Diagnoses / Procedures Referred By Qian t Referred To Contact Diagnoses Right knee pain, unspecified chronicity Procedures XR Knee Rt 3 Views Maximilian Hickey MD [address] [place] [address] Phone: tel: fax: Referral ID Status Reason Start Date Expiration Date V isits Requested Visits Authorized [id number] Incomplete 12/29/2024 03/30/2026 1 1 Reason for Visit * Reason Comments INJURY, KNEE Right knee injury, s ensitive to the touch, tapping increases painDOI 1 weekMOI 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 Encounter Details Date Type Department Care Team (Late st Contact Info) Description 12/29/2024 7:00 PM CDT Office Visit [facility] at [address] [phone] Maximilian Hickey MD [address] [place] [address] Acute pain of right knee (Primary Dx); Fall down stairs, initial encounter Social History Tobacco Use Types Packs/Day Years Used Date Smoking Tobacco: Every Day Cigarettes Smokeless Tobacco: Never Alcohol Use Standard Drinks/Week Comments No 0 (1 standard drink = 0.6 oz pur e alcohol) Comments No Sex and Gender Information Value Date Recorded Sex Assigned at Not on file Legal Sex Female 2:46 PM CDT Gender Identity Not on file Sexual Orientation Not on file 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 Acute pain of right knee 2. Fall down stairs, initial encounter Concern for geniculate nerve pinch PLAN -XR interpreted by myself: right knee - no fracture -ice -ibuprofen as needed -avoid kneeling/pressure on area -watch for--weakness, numbness spreading documented in this encounter Progress Notes * Maximilian Hickey MD - 12/29/2024 7:00 PM CDT [facility] Orthopedic Urgent Care Date of Service: 12/29/2024 ASSESSMENT 1. Acute pain of right knee 2. Fall down stairs, initial encounter Concern for geniculate nerve pinch PLAN -XR interpreted by myself: right knee - no fracture -ice -ibuprofen as needed -avoid kneeling/pressure on area -watch for--weakness, numbness spreading -Follow up if worsening--swelling of knee, loss of motion, increasing difficulty weight-bearing, instability, locking MDM Acute injury of right knee after slipping down the stairs 1 week ago with pain at lateral proximal tibia particularly sensitive with Tinel testing concerning for geniculate nerve impingement/compression from fall. Reassuringly no effusion, full weight-bearing, full range of motion, no laxity on exam testing. No history of knee injuries. Patient reports soreness particularly after being up on her feet all day at work but no mechanical symptoms. X-ray does not show an obvious fracture. Discussed with patient I suspect she compress her geniculate nerve which is why she is hypersensitive in that lateral proximal tibia area consistent with the tapping also known as a Tinel. Discussed with her that this will likely improve over time since this has more of a compression not a laceration type injury. She is overall unhappy with this information. I do not feel she has a high likelihood of internal derangement so would not recommend an MRI at this point. Instead would focused on anti-inflammatories, backing off on activity as she is able. Did discuss wearing compression while she is at work so given an Mekhi bandage. She declines need for crutches. 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 OBJECTIVE Pain Assessment Pain Side/Orientation: right Pain Location: knee (0-10) Pain Rating: Activity: 8 Temp Readings from Last 1 Encounters: 12/29/24 (!) 35.9 ??C (96.7 ??F) Right knee No effusion Tenderness mild lateral tibial plateau No tenderness along medial joint line, lateral joint line Positive Tinel over lateral proximal tibia Sensation intact to light touch going down leg No bruising No break in skin, no redness Flexion 140, extension 0 Moe with good endpoint Shaan without pain or popping along joint line No pain or laxity with MCL testing documented in this encounter Plan of Treatment Not on file documented as of this encounter Results * XR Knee Rt 3 Views (12/29/2024 7:17 PM CDT) Anatomical Region Laterality Modality Lower Extremity, Knee Digital Ra diography Narrative 12/29/2024 7:23 PM CDT EXAM: XR KNEE RT 3 VIEWS INDICATION: knee pain COMPARISON: None available FINDINGS: Three views were obtained. Trace joint effusion. No definite fracture or acute appearing malalignment. No additional bone or joint abnormality. Signed by: Jacques Hall 12/29/2024 7:23 PM Procedure Note Jacques Hall MD - 12/29/2024 EXAM: XR KNEE RT 3 VIEWS INDICATION: knee pain COMPARISON: None available FINDINGS: Three views were obtained. Trace joint effusion. No definite fracture oracute appearing malalignment. No additional bone or joint abnormality. Signed by: Jacques Hall 12/29/2024 7:23 PM Maximilian Hickey MD RAD GD Final Result documented in this encounter Visit Diagnoses Diagnosis Acute pain of right knee- Primary Fall down stairs, initial encounter Right knee pain, unspecified chronicity documented in this encounter Care Teams Ammunition Assembly Laborer Relationship Specialty Start Date End Date Needs Pcp, [place] [address] PCP - General 10/06/23 documented as of this encounter
--- OUTSIDE RECORDS SUMMARY | 2024-12-29 19:10 | XMS_ITS | Encounter Summary ---
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 Name Role Phone Needs Pcp, Assignment Primary Care Provider Reason for Visit * Procedure/Equipment (Routine) - Incomplete Specialty Diagnoses / Procedures Referred By Qian mayers Referred To Contact Diagnoses Right knee pain, unspecified chronicity Procedures XR Knee Rt 3 Views Maximilian Hickey MD [address] [place] [address] Phone: tel: fax: Referral ID Status Reason Start Date Expiration Date V isits Requested Visits Authorized [id number] Incomplete 12/29/2024 03/30/2026 1 1 Encounter Details Date Type Department Care Team (Latest Contact Info) Description 12/29/2024 7:10 PM CDT Ancillary Procedure [facility] [address] Radiology [address] [place] [phone] Maximilian Hickey MD [address] [place] [phone] Right knee pain, unspecified chronicity Social History Tobacco Use Types Packs/Day Years [...] on file documented as of this encounter Plan of Treatment Not on file documented as of this encounter Procedures Procedure Name Priority Date/Time Associated Diagnosis Comments XR KNEE RT 3 VIEWS Routine 12/29/2024 7: 17 PM CDT Right knee pain, unspecified chronicity documented in this encounter Results * XR Knee Rt [...] in this encounter Visit Diagnoses Diagnosis Right knee pain, unspecified chronicity documented in this encounter Care Teams Lower School Music Teacher Relationship Specialty Start Date End Date Needs Pcp, [place] [address] PCP - General 10/06/23 documented as of this encounter
[2024-12-31 02:17] VITALS: BP 134/73; PULSE 101; RESP 18; TEMP 36.9; O2SAT 97; BMI 32.3
--- NOTE | 2024-12-31 02:37 | ED_ITS ---
HPI - General Adult General Chief complaint: Arrhythmia/Palpitations Stated complaint: Chest pain Time Seen by Provider: 12/31/24 02:25 Source: patient and EMS Mode of arrival: EMS History of Present Illness HPI narrative: Patient presents to the emergency department for her 13th visit to the emergency department in the last year. Most of which were related to chest pain for no etiology found. Patient reports that she woke around 12 45 with a feeling of rapid heart rate. Symptoms probably lasted a couple of minutes. Heart rate was around 160 per her estimation. She did catch it on her Apple watch but her watch has now and needs to be charged and I cannot track the values. She reports that she did show it to the EMS crew and at that time her heart rate hadto the 110s and was not showing any sign of arrhythmia. She reports that she had some chest tightness with the rapid episode. She has had multiple workups for this chest pressure. She reports that she has had an echo within the last month and that this was reassuring. She had a Holter monitor placed within the last few months as well, reports that she took it off after 3 days due to skin irritation but it sounds as though there were no abnormalities found. She has had her thyroid checked electrolytes checked multiple times. She does have a family history of coronary artery disease. She reports a history of SVT several years ago and has had an ablation after her . Had Cardiology weigh in within the last month with the echo as stated above. Apparently this was performed at [facility]. I do not have those records. Reports that she takes metoprolol, but only 12.5 mg once daily for her cardiac symptoms. Reports that she cannot be on a higher dose because it feels like it drops her blood pressure too much. It does not sound as though she has tried other beta- blockers. She reports a history of eosinophilic esophagitis, wonders if this could be flaring up her episodes. She is currently seen GI and has had endoscopy as fabián snyder. She continues to work with them for further investigation of her GI and esophageal symptoms. Multiple prior ED visits reviewed through our facility. She has had pulmonary embolism workup, multiple x-rays, multiple EKGs, all of the typical labs. Home meds reviewed. ROS notable for the cardiac symptoms as above which have resolved, otherwise denies times 12 systems. Related Data Home Medications ?Medication ?Instructions ?Recorded ?Confirmed omeprazole 40 mg capsule,delayed 40 mg PO DAILY 11/21/24 release lorazepam 0.5 mg tablet 0.5 mg PO DAILY PRN anxiety 03/18/23 11/21/24 metoprolol succinate 25 mg 12.5 mg PO DAILY 10/15/23 0 11/21/24 tablet,extended release 24 hr paroxetine HCl 40 mg tablet 40 mg PO QAM 10/15/2311/08 ketoconazole 2 % shampoo 1 applic topical 05/02/24 tretinoin 0.05 % topical cream 1 applic topical QPM 10/18/24 (Retin-A) Previous Rx's ?Medication ?Instructions ?Recorded prednisone 20 mg tablet 40 mg (2 x 20 mg) PO DAILY 5 days 12/17/24 #10 tabs propranolol 20 mg tablet 20 mg PO TID PRN Palpitation s #30 12/31/24 tabs Allergies Allergy/AdvReac Type Severity Reaction Status Date / Time vancomycin AdvReac Redness of Verified 12/31/24 02:17 Skin PFSH PFSH Medical History SVT (supraventricular tachycardia) ?I47.10 - Supraventricular tachycardia, unspecified (ICD-10) Social History Smoking Status: Former smoker What tobacco products do you use: cigarettes Smoking quit date/years: <= 15 years ago Do you use any of these nicotine containing products: None and Vaping Products Second hand tobacco smoke exposure: No How often do you have a drink containing alcohol: monthly or less How often do you have six or more drinks on one occasion: Never AUDIT-C Alcohol total score: 1 Non-prescribed substance use: denies use service: No Exam Const: Vital Signs, click to edit/add: Vital Signs - 24 hr 12/31/24 02:17 Temperature 98.4 F Pulse Rate [Right Pulse Oximeter] 101 H Respiratory Rate 18 Blood Pressure [Ri ght Upper Arm] 134/73 Pulse Oximetry 97 Oxygen Delivery Me thod Room Air Documenting provider has reviewed patient's vital signs: yes Other: Anxious but redirectable. Fairly good historian. Appears well-nourished and well-hydrated, non intoxicated. HENMT: Common normals: normocephalic, moist oral mucous membranes and oropharynx normal Head and scalp: normocephalic Face and sinus: normal facial exam Eye: Common normals: conjunctivae normal General eye: normal appearance of both eyes Conjunctiva: conjunctiva(e) normal Resp: Common normals: normal respiratory effort and no use of accessory muscles Effort & inspection: able to speak in complete sentences Cardio: Common normals: regular rate, regular rhythm, S1 normal heart sound, S2 normal heart sound and no murmurs Rate: regular rate Rhythm: regular rhythm Heart sounds: S1 normal and S2 normal Psych: Insight: fair Judgement: fair Other: Anxious but redirectable. Skin: Common normals: no rashes or lesions noted General skin exam: no rashes or lesions noted Course Course ED Course: 24-year-old female with prior history of SVT presenting with a couple of minute episode of rapid heart rate that spontaneously resolved at home. EMS confirming no arrhythmia by the time they arrived, chest pressure has resolved. Patient monitored for 1/2 hour prior to my interview with no signs of return arrhythmia. I recommend an EKG. This is performed and showing normal sinus rhythm with no significant ST or T-wave abnormalities. Rate is 94 with normal intervals and axis. She has had an extensive outpatient workup including a 3 day Holter, echo, multiple labs. She has had 13 ED visits within the last year for some similar complaints. She has had thorough workup at all of those. I do not recommend that we pursue this further here tonight. I counseled patient that I do think it is a good idea for her to have a full Holter monitor performed, she should consider discussing an alternative beta-joseph if she does not tolerate higher doses of the metoprolol. This should be done with her primary care provider or blender/braze applicator. We discussed different methods of management including the ?pill in the pocket? method where an additional short-acting dose of a beta-joseph can be taken for breakthrough symptoms. I think she would be an excellent candidate for this. Prescribed propranolol 20 mg t.i.d. p.r.n.. May tolerate higher doses but I directed her that I want to start with a low- dose. Will give 20 mg p.o. x1 here as well. My rationale for not performing t roponin, chest x-ray and all of these other tests that have been performed multiple times within the last few months is reviewed. She was hesitant to accept this but I really do standby the recommendation. Indications for coming into the ED reviewed. Instructor to try the propranolol next time and if her symptoms do not resolve within about 45 minutes, consider coming in for care. We discussed how Apple watch as can be very helpful. Generation for and higher do have arrhythmia monitors as well which she may find helpful. Written instructions provided, all questions answered. Patient will be discharged home with significant other. Vital Signs Vital signs: Initial Vital Signs Temperature 98.4 F 12/31/24 02:17 Temperature Source Temporal Artery Scan 12/31/24 02:17 Pulse Rate 101 H 12/31/24 02:17 Respiratory Rate 18 12/31/24 02:17 Blood Pressure 134/73 12/31/24 02:17 Blood Pressure Mean 93 12/31/24 02:17 Blood Pressure Position Sitting 12/31/24 02:17 Pulse Oximetry 97 12/31/24 02:17 Oxygen Delivery Method Room Air 12/31/24 02:17 Vital Signs Temperature 98.4 F 12/31/24 02:17 Pulse Rate 101 H 12/31/24 02:17 Respiratory Rate 18 12/31/24 02:17 Blood Pressure 134/73 12/31/24 02:17 Pulse Oximetry 97 12/31/24 02:17 Oxygen Delivery Method Room Air 12/31/24 02:17 Temperature 98.4 F 12/31/24 02:17 Pulse Rate 101 H 12/31/24 02:17 Respiratory Rate 18 12/31/24 02:17 Blood Pressure 134/73 12/31/24 02:17 Pulse Oximetry 97 12/31/24 02:17 Oxygen Delivery Method Room Air 12/31/24 02:17 Medical Decision Making ECG Data Attestation: I personally reviewed and interpreted this ECG as follows: Prior ECG tracings: available for review Interpretation: Multiple prior similar EKGs reviewed. Sinus rhythm rate of [address] or T-wave abnormalities. Normal interval and axis. Discharge Plan Discharge Clinical Impression: Palpitations Patient Disposition: Home w/ Parent or Adult Condition: Improved Instructions: Heart Palpitations (DC) Additional Instructions: As we discussed, I do think that you had an episode of an arrhythmia. This could have been a simple sinus tachycardia, but could have been an episode of SVT, atrial fibrillation or atrial flutter. It is very reassuring to me to hear that you have had a recent echo that was normal. This tells me there are no signs of underlying cardiomyopathy or valve issues that would have contributed. Catching the abnormal rhythm is critically important in knowing how to prevent the episodes. At the moment, you are in normal sinus rhythm. An extended Holter or Zoll monitor for 2 weeks would be very helpful to help find the abnormal rhythm. In the meantime, I want you to keep taking your metoprolol but I just want to pin in your brain that and alternative beta-joseph might be better tolerated. Alternatives like atenolol or propranolol extended release might give you less side effects and control your symptoms better. These tend to drop your blood pressure less than certain other beta-blockers like carvedilol. I would recommend that we start the ?pill in the pocket? technique for managing these breakthrough episodes. When you get a spell of palpitations, he will take a short-acting dose of a very low dose of propranolol. I will send a prescription of this to your pharmacy. If symptoms do not improve within about 45 minutes, then I would recommend ED evaluation. Since her or watches , I cannot tell for sure if it is the type that has an arrhythmia detector. You might consider upgrading to 1 that does. This may give you additional input to know which rhythm is occurring. As far as the short-acting propranolol, use this up to 3 times daily for breakthrough symptoms of palpitations. You are correct, there may be some connection to your GI condition. Acid reflux can stimulate the vagus nerve and make someone more prone to PVCs and other flare ups of underlying arrhythmias, but does not tend to affect those people that do not have underlying predisposition for abnormal rhythms. I do agree that repeating all of the labs that you have had done multiple times within the last few months is not going to be helpful tonight. It can be possible to have a mildly abnormal troponin from the strain of the rapid heart rate. Since her rhythm has returned to normal and your symptoms have improved, I do not recommend running troponin levels. They would not tell me if you have a blocked artery like a stress test or angiogram would. I would recommend that you follow-up for an extended wear Holter monitor and then review the results with her primary doctor or blender/braze applicator to determine the best way to keep you from having these frequent episodes. I assure you, there are many more options available to you. You do not need to suffer with these episodes. Activity Level: No Restrictions Discharge Diet: Regular Prescriptions: New propranolol 20 mg tablet 20 mg PO TID PRN (Reason: Palpitations) Qty: 30 2RF No Action tretinoin [Retin-A] 0.05 % cream 1 applic topical QPM ketoconazole 2 % shampoo 1 applic topical lorazepam 0.5 mg tablet 0.5 mg PO DAILY PRN (Reason: anxiety) prednisone 20 mg tablet 40 mg PO DAILY 5 Days Qty: 10 0RF omeprazole 40 mg capsule,delayed release(DR/EC) 40 mg PO DAILY Patient Comments: TAKE ONE CAPSULE BY MOUTH EVERY DAY . metoprolol succinate 25 mg tablet extended release 24 hr 12.5 mg PO DAILY paroxetine HCl 40 mg tablet 40 mg PO QAM Follow Up/Referrals: Provider,Not a Local [Primary Care Provider, Family Practice] Stand Alone Forms: [employer] Info Instructions
--- OUTSIDE RECORDS SUMMARY | 2024-12-31 03:12 | XMS_ITS | Encounter Summary ---
Author Organization [facility] Address [address] [place] [address] Care Team Providers Care Diamond Powder Mixer Name Role Phone Diana Desir [facility] Unavailable Rain GalavizC Unavailable Tavia Wyatt MD Unavailable [phone] Erica Farrell APRN HATCH SUPERVISOR Unavailable Rich Barrett MD Unavailable [phone] Neil Kent MD Unavailable ThangKendrickDiana Stanislav [facility] Unavailable [phone] Livan Sharif MD Unavailable Catherine Cm MD Unavailable + Valery Veronica-C Unavailable Brea Quinn APRN HATCH SUPERVISOR Unavailable [phone] Esha Grimm PA-C Primary Care Provider [phone] Jelena David OD Unavailable Esha Grimm PA-C Unavailable [phone] Valery Veronica PA-C Unavailable Rey Tay MD Unavailable ZepedaRocky Unavailable Philip Dumont MD Unavailable Meredith Carrera PA-C Unavailable Neil Kent MD Unavailable Juan Pablo Emmanuel MD Unavailable [phone] Audrey Waite PA-C Unavailable Valery Veronica PA-C Unavailable [phone] Herminia Hatch MD Unavailable Jelena David OD Unavailable [phone] Juan Pablo Emmanuel MD Unavailable Maru ManC Unavailable Maru ManC Unavailable Jelena David OD Unavailable [phone] Fabiano Correa NP Unavailable [phone] Reason for Visit * Reason Onset Date Comments Referral 12/21/2024 MTM declined Encounter Details Date Type Department Care Team (Late st Contact Info) Description 12/21/2024 Telephone [facility] [id number] [place] [phone] Esha Grimm PA-C [address] [place] [address] Referral (MTM declined ) Social History Tobacco Use Types Packs/Day [...] [facility]2024 [facility] [...] exercise at this level? 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 Gender Identity Female 03/02/2021 5:45 PM CDT Sexual Orientation Straight 02/28/2020 12 :51 AM CDT documented as of this encounter Miscellaneous Notes * Telephone Encounter - [facility] - 12/21/2024 10:03 AM CDT MTM referral from: [facility] visit (referral by provider) MTM referral outreach attempt #2 on December 21, 2024 at 10:03 AM Outcome: Spoke with patient declined Use Paula ABRAMS for the carrier/Plan on the flowsheet Shruti Cook CMA [place] Research Associate Quality Control Qc documented in this encounter Plan of Treatment Upcoming Encounters Date Type Department Care Team (Latest Contact Info) Description 01/02/2025 1:10 PM CDT Ancillary Procedure [facility] [address] [place] [phone] Lauren Claudio PA-C [address] [place], [place] [phone] 01/17/2025 10:00 AM CDT Appointment [place] [id number] [place] [phone] Lauren Claudio PA-C [address] [place], [place] [phone] 04/16/2025 11:00 AM CDT Virtual Visit [facility] [address] [phone] Meredith Carrera PA-C [address] [place] [address] [phone] documented as of this encounter Visit Diagnoses Not on filedocumented in this encounter Additional Health Concerns Assessment Noted Time PHQ-9 Depression Total Score: 5 10/25/19 25 10:38 AM CDT documented as of this encounter Care Teams Diamond Powder Mixer Relationship Specialty Start Date End Date Esha Grimm PA-C [id number] [place] [phone] PCP - General Family Medicine 05/04/23 Diana Desir, [facility] [address] [place] [address] Pharmacist Pharmacist 04/17/21 Rain Galaviz PA-C [address] [place] [address] [address] [place] [address] Physician Calender Machine Operator Dermatology 04/28/21 Tavia Wyatt MD [address] [place] [address] [address] [place], [place] [address] Dermatology 07/14/21 Erica Farrell APRN HATCH SUPERVISOR [address] [place], [place] [address] Nurse Practitioner Cardiovascular Disease 09/09/21 Rich Barrett MD [address] [place], [place] [address] Physician Ophthalmology 01/21/22 Neil Kent MD [address] [place], [place] 2107[address] Dermatology 02/24/22 Diana Desir, [facility] [address] [place], [place] [address] Assigned [place] Pharmacist 04/07/22 Livan Sharif MD [address] [place], [place] [phone] Cardiovascular Disease 05/14/22 Catherine Cm MD [address] [place], [place] [address] Cardiovascular Disease 07/21/22 Valery Veronica PA-C [address] [place] [address] Physician Calender Machine Operator Dermatology 07/21/22 Brea Quinn APRN CNP [address] [place] [address] Nurse Practitioner Dermatology 09/21/22 Jelena David OD [address] [place] [address] [place] [address] MD Ophthalmology 06/15/23 Esha Grimm PA-C [address] [place] [phone] Assigned PCP 07/16/23 Valery Veronica PA-C [address] [place] [address] Physician Calender Machine Operator Dermatology 09/19/23 Rey Tay MD [address] [place] [address] [id number] MD Gastroenterology 09/20/23 Rocky Zepeda DO [address] [place] [address] 130775 Physician Gastroenterology 09/20/23 Philip Dumont MD [address] [place] [address] 654195 Physician Ophthalmology 09/22/23 Meredith Carrera PA-C [address] [place] [address] 535505 Assigned Gastroenterology Provider 11/01/23 Neil Kent MD [address] [place] [address] Dermatology 11/02/23 [place] [address] [place] [address] Neurological Surgery 12/26/23 Audrey Waite PA-C [address] [place] [address] Physician Calender Machine Operator Dermatology 02/28/24 Valery Veronica PA-C [id number] [place] [address] Physician Calender Machine Operator Dermatology 04/10/24 Herminia Hatch MD [address] [place] [address] [phone] Assigned Rheumatology Provider 07/02/24 Jelena David OD [address] [place] [address] [place] [address] Ophthalmology 08/30/24 [place] [address] [place] [address] Assigned Neuroscience Provider 09/30/24 Maru Man PA-C [address] [place] [address] Physician Calender Machine Operator Dermatology 10/03/24 Maru Man PA-C [address] [place] [address] Physician Calender Machine Operator Dermatology 10/22/24 Jelena David OD [address] [facility] [place] [address] Assigned Surgical Provider 10/31/24 Fabiano Correa NP [address] [place] [address] Assigned Heart and Vascular Provider 11/30/24 documented as of this encounter
--- OUTSIDE RECORDS SUMMARY | 2024-12-31 03:12 | XMS_ITS | Encounter Summary ---
Author Organization [facility] Address [address] [place] [address] Care Team Providers Care Commercial Real Estate Broker Name Role Phone Diana Desir [facility] Unavailable [phone] Rain Galaviz PA-C Unavailable Tavia Wyatt MD Unavailable [phone] Erica Farrell APRN MINE ENGINEERING MANAGER Unavailable Rich Barrett MD Unavailable [phone] Neil Kent MD Unavailable Diana Desir [facility] Unavailable Livan Sharif MD Unavailable Catherine Cm MD Unavailable + Vaelry Veronica PA-C Unavailable Brea Quinn OPTICAL STORE MANAGER MINE ENGINEERING MANAGER Unavailable Bera Quinn OPTICAL STORE MANAGER MINE ENGINEERING MANAGER Unavailable Jose Francisco Johnson MD Unavailable Alfonso Renteria MD Unavailable [phone] Esha Grimm PA-C Primary Care Provider Lomeli, Radha E OPTICAL STORE MANAGER MINE ENGINEERING MANAGER Unavailable Jelena David OD Unavailable [phone] Esha Grimm PA-C Unavailable [phone] Valery Veronica PA-C Unavailable Rey Tay [...] Team (Late st Contact Info) Description 04/24/2024 [facility] [id number] [place] [address] [address] [place] [address] Radha Lomeli, OPTICAL STORE MANAGER MINE ENGINEERING MANAGER [address] [place] [id number] Social History Tobacco Use Types Packs/Day Years [...] week 03/28/2024 How often do you attend [facility] or [facility] services? 1 to 4 times [...] Score 1 02/07/2024 [facility] - Occupational [...] exercise at this level? 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 documented in this encounter Plan of Treatment Upcoming Encounters Date Type Department Care Team (Latest Contact Info) Description 01/02/2025 1:10 PM CDT Ancillary Procedure [address] [address] Lauren Claudio PA-C [id number] [place] [address] 01/17/2025 10:00 AM CDT Appointment [id number] [place] [phone] Lauren Claudio PA-C [address] [place] [address] 04/16/2025 11:00 AM CDT Virtual Visit [facility] [address] [place] [phone] Meredith Carrera PA-C [address] [place] [address] documented as of this encounter Visit Diagnoses [...] as of this encounter Care Teams Commercial Real Estate Broker Relationship Specialty Start Date End Date Esha Grimm PA-C [address] [place] [phone] PCP - General Family Medicine 05/04/23 Diana Desir, [facility] [address] [place] [address] Pharmacist Pharmacist 04/17/21 Rain Galaviz PA-C [address] [place] [address] [address] [place] [address] Physician Air Traffic Control Supervisor Dermatology 04/28/21 Tavia Wyatt MD [address] [place] [address] [address] [facility] [place] [address] Dermatology 07/14/21 Erica Farrell APRN MINE ENGINEERING MANAGER [address] [place] [address] Nurse Practitioner Cardiovascular Disease 09/09/21 Rich Barrett MD [address] [place] [address] Physician Ophthalmology 01/21/22 Neil Kent MD [address] [place], [place] 292195 Dermatology 02/24/22 Diana Desir, [facility] [address] [place] [address] Assigned MTM Pharmacist 04/07/22 Livan Sahrif MD [address] [facility] [address] [place] [address] Cardiovascular Disease 05/14/22 Catherine Cm MD [address] [facility] [address] [facility] [address] [place] [address] Cardiovascular Disease 07/21/22 Valery Veronica, PAUcheC [address] [place] [address]36225 Physician Air Traffic Control Supervisor Dermatology 07/21/22 Brea Quinn APRN MINE ENGINEERING MANAGER [address] [place] [address]65 Nurse Practitioner Dermatology 09/21/22 Brea Quinn APRN MINE ENGINEERING MANAGER [address] [facility] [phone] Assigned Surgical Provider 10/09/22 05/01/24 [place] [address] [facility] [address] [place] [address] Assigned Musculoskeletal Provider 10/09/22 05/01/24 Alfonso Renteria MD [address] [facility] [address] [place], [place] 596136 Assigned Neuroscience Provider 04/02/23 09/29/24 Radha Lomeli APRN MINE ENGINEERING MANAGER [address] [place], [place] [phone] Assigned Heart and Vascular Provider 05/28/23 11/29/24 Jelena David OD [address] [facility] [place] [address] MD Ophthalmology 06/15/23 Esha Grimm PA-C [address] [place] [phone] Assigned PCP 07/16/23 Valery Veronica PA-C [address] [place] [address] 904185 Physician Air Traffic Control Supervisor Dermatology 09/19/23 Rey Tay MD [address] [place] [address] [phone] MD Gastroenterology 09/20/23 Rocky Zepeda DO [address] [place] [address] [phone] Physician Gastroenterology 09/20/23 Philip Dumont MD [address] [place] [address]375 Physician Ophthalmology 09/22/23 Meredith Carrera PA-C [address] [place] [address] [phone] Assigned Gastroenterology Provider 11/01/23 Neil Kent MD [address] [address] Dermatology 11/02/23 [place] [address] [place] [address] Neurological Surgery 12/26/23 Audrey Waite PA-C [address] [place] [address] Physician Air Traffic Control Supervisor Dermatology 02/28/24 Valery Veronica PA-C [id number] [place] [address] Physician Air Traffic Control Supervisor Dermatology 04/10/24 Herminia Hatch MD [address] [place] [address] [id number] Assigned Rheumatology Provider 07/02/24 Jelena David OD [address] [place] [address] [place] [address] Ophthalmology 08/30/24 [place] [address] [place] [address] Assigned Neuroscience Provider 09/30/24 Maru Man PA-C [address] [place] [address] Physician Air Traffic Control Supervisor Dermatology 10/03/24 Maru Man PA-C [address] [place] [address] Physician Air Traffic Control Supervisor Dermatology 10/22/24 Jelena David OD [address] [place] [address] [place] [address] Assigned Surgical Provider 10/31/24 Fabiano Correa NP [address] [place] [address] Assigned Heart and Vascular Provider 11/30/24 documented as of this encounter
--- OUTSIDE RECORDS SUMMARY | 2024-12-31 03:12 | XMS_ITS | Clinical Summary ---
Author Organization [place] Address [address] [place] [address] Care Team Providers Care Strategy Analyst Name Role Phone Diana Desir [facility] Unavailable Rain GalavizC Unavailable Tavia Wyatt MD Unavailable [phone] Erica Farrell APRN BLACK ASH BURNER OPERATOR Unavailable Rich Barrett MD Unavailable [phone] Neil Kent MD Unavailable ThangKendrickDiana Stanislav [facility] Unavailable [phone] Livan Sharif MD Unavailable Catherine Cm MD Unavailable + Valery Veronica-C Unavailable [phone] Brea Quinn APRN BLACK ASH BURNER OPERATOR Unavailable Esha Grimm PA-C Primary Care Provider Jelena David OD Unavailable [phone] Esha Grimm PA-C Unavailable [phone] Valery Veronica PA-C Unavailable [phone] Rey Tay MD Unavailable DuaneRocky Unavailable Philip Dumont MD Unavailable Meredith Carrera PA-C Unavailable Neil Kent MD Unavailable Juan Pablo Emmanuel MD Unavailable Audrey Waite PA-C Unavailable Valery Veroncia PA-C Unavailable Herminia Hatch MD Unavailable Jelena David OD Unavailable Juan Pablo Emmanuel MD Unavailable [phone] Maru Man-C Unavailable Maru Man-C Unavailable Jelena David OD Unavailable [phone] Fabiano Correa NP Unavailable Allergies Active Allergy [...] daily. 90 capsule 2 09/18/19 25 Active triamcinolone (KENALOG) 0.1 % external ointmentIndicat ions:Psoriasis Apply topically 2 times daily. To psoriasis on body or arms/legs until healed then stop 80 g 10/19/19 25 Active simethicone (MYLICON) 125 MG chewable tabletIndicatio ns:Abdominal bloating Take 1 tablet (125 mg) by mouth 4 times daily as needed for intestinal gas. 120 tablet 1 12/20/19 25 Active PARoxetine (PAXIL) 40 MG tabletIndicatio ns:Anxiety Take 1 tablet (40 mg) by mouth every morning. NEED APPT FOR FURTHER REFILLS. 30 tablet 5 12/20/19 25 Active PARoxetine (PAXIL) 40 MG tabletIndicatio ns:Anxiety Take 1 tablet (40 mg) by mouth every morning. NEED APPT FOR FURTHER REFILLS. 30 tablet 1 10/19/19 25 025 Discontinu ed(Reorder (No AVS)) doxycycline hyclate (VIBRAMYCIN) 100 MG capsuleIndicati ons:Pneumonia [...] available in ED consider consultation with ED Photoengraving Apprentice. Relevant Medical History (at time Care Plan initiated): Seizures (on 500mg Keppra daily), SVT (on 12.5mg metoprolol daily), Anxiety and Depression Past imaging: CT: 3 in the 12 months prior to initiation of care plan. MRI: 0 in the 12 months prior to initiation of care plan. ED Ultrasound: 8 in the 12 months prior to initiation of care plan. [facility] ED visits in 12 months prior to initiation of Care Plan: 11 Total [facility] Hospital Admissions in 12 months prior to initiation of Care Plan: 0 (she has technically had 2 admissions due to related issues with OBGYN) Expected home rescue plan: Metoprolol 12.5mg PRN PCP: Marija Edgar APRN CNP - [facility] Medicine - [facility] Specialists: Dr. Galo Burrell - Cardiology - [facility] Dee Dotson - Neurology - [facility] Epilepsy Care Care Coordination: Has worked with Community Health Worker in past - ARACELIS Parker, Clinical Care Coordination - [facility] ([place], [place]) - Follow up plan after an ED visit: Marija Edgar APRN CNP - [facility] - [facility] Initiated: 2020 Problem Noted Date Diagnosed [...] (05/27/2020): Added automatically from request for surgery [id number] Left ureteral stone 05/27/2020 Overview (05/27/2020): Added automatically from request for surgery [id number] Head ache 02/18/2020 Seizure 05/02/2019 Depressed 05/02/2019 Anxiety 05/02/2019 Tobacco abuse counseling 05/02/2019 Psoriasis 05/02/2019 Resolved Problems Problem Noted Date Diagnosed Date Resolved Date Neck pain 08/25/2022 06/29/2024 Lower back pain 08/25/2022 08/17/2023 Term 01/13/2021 10/11/2022 Encounter for triage in patient 12/09/2020 04/18/2023 Asthma 06/04/2020 02/07/2024 Encounters Date Type Department Care Team Description 12/28/2024 8:55 AM CDT Lab [facility] [address] [place] [address] Vaginal discharge 12/28/2024 Results Follow-Up [address] [phone] Esha Grimm PA-C Subj: Message about your results 12/28/2024 Travel 12/27/2024 10:00 AM CDT E-Visit [address] [phone] Esha Grimm PA-C Vaginal Discharge (Entered automatically b... 12/27/[address] [phone] Esha Grimm PA-C Orders 12/24/2024 MyC Medical Advice [address] [phone] [facility] 12/21/[address] [phone] Esha Grimm PA-C Referral (MTM declined ) 12/21/[address] [phone] Betzy Jolly, [facility] Care Coordination - Initial (Triage GI SX ) 12/20/2024 [facility] [address] [place] [phone] Flory Haque, TRIM SETTER HELPER 12/20/2024 Results Follow-Up [address] [phone] Lauren Claudio PA-C Subj: Message about your results 12/19/2024 2:00 PM CDT Office Visit [facility] [address] [place] [phone] Lauren Claudio PA-C Abdominal bloating (Primary Dx); Shortness of breath; SVT (supraventricular tachycardia); Anemia, unspecified type; Anxiety; Pneumonia of right lower lobe due to infectious organism 12/19/2024 Travel 12/17/2024 Travel 12/12/2024 Results Follow-Up [address] [phone] Nigel Doe PA-C Subj: Message about your results 12/05/2024 Results Follow-Up [facility] [address] [place] [phone] Amalia Zayas MD Dx: Pneumonia of right lower lobe due to infectious organism (Primary Dx) 12/04/2024 3:55 PM CDT Ancillary Procedure [facility] [address] [place] [phone] Amalia Zayas MD Acute cough 12/04/2024 3:05 PM CDT Office Visit [facility] [address] [place] [phone] Amalia Zayas MD Pneumonia of right lower lobe due to infectious organism (Primary Dx); Acute cough; Chest pain, unspecified type 12/04/2024 Travel 11/29/2024 Results Follow-Up [facility] [address] [place] [address] Meredith Carrera PA-C Dx: Bloating symptom (Primary Dx) 11/23/2024 Results Follow-Up [facility] - General Medicine & Pediatrics [facility] [place] [address] Luis Angel Leone MD Subj: Message about your results 11/22/2024 4:00 AM CDT - 11/22/2024 10:31 AM CDT Hospital Encounter [facility] Emergency Dept [address] [place] [phone] Elizabeth Griffin MD Vaughn, Christopher E, MD Ward, MD Chito Osborne Jessalyn A, MD Shortness of breath; Tachycardia; Near syncope; Influenza B Discharge Disposition: Home or Self Care 11/22/2024 Travel 11/21/2024 11:04 PM CDT - 11/22/2024 2:01 AM CDT Emergency [facility] [address] [place] [address] Sha Ness MD Influenza B; Sinus tachycardia Discharge Disposition: Home or Self Care 11/21/2024 Travel 11/21/2024 Results Follow-Up [facility] [address] [place] [phone] Audrey Díaz PA-C Subj: Message about your results 11/21/2024 Telephone [facility] Nurse Advisors [facility] [place] [address] Celine Vogel RN General 11/20/2024 11:20 AM CDT Ancillary Procedure [facility] [address] [place] [phone] Estephania Flannery NP Acute cough 11/20/2024 11:15 AM CDT Office Visit [facility] [address] [place] [phone] Estephania Flannery NP Yeast infection of the vagina (Primary Dx); Fever, unspecified; Acute cough; Screening examination for STI; Dysuria; Viral URI with cough; Irregular bowel habits 11/20/2024 Travel 11/09/2024 MyC Medical Advice [facility] [address] [phone] Apolinar Gresham 11/07/2024 Telephone [facility] [address] 4th [place] [phone] Meredith Carrera PA-C Appointment 11/02/2024 7:45 AM CDT Virtual Visit [facility] [address] [place] [phone] Meredith Carrera PA-C Bloating symptom (Primary Dx); Irregular bowel habits; Eosinophilic esophagitis 10/28/2024 3:58 PM CDT - 10/28/2024 6:57 PM CDT Emergency [facility] [address] [place] [address] Jeffrey Fofana MD Acute chest pain Discharge Disposition: Home or Self Care 10/28/2024 Travel 10/24/2024 4:00 PM CDT Office Visit [facility] [address] [facility] [address] [place] [phone] Jelena David, SONJA Hyperopia of both eyes with astigmatism (Primary Dx); Headache, unspecified headache type 10/24/2024 11:00 AM CDT Office Visit [address] [phone] Nigel Doe PA-C Sore throat (Primary Dx); Abdominal bloating; SVT (supraventricular tachycardia) 10/24/2024 Orders Only (auto-released) [facility] [address] [place] [phone] Nigel Doe PA-C SVT (supraventricular tachycardia) 10/24/2024 Travel 10/23/2024 PRE VISIT [facility] - [address], [address] [place] [phone] Johnny Penn MD Previsit 10/21/2024 Travel 10/18/2024 Telephone [facility] [address] 4th [place] [phone] Meredith Carrera PA-C Appointment (10/31/2024) 10/18/[address] [phone] Brea Quinn APRN BLACK ASH BURNER OPERATOR Refill Request (Triamcinolone Acetonide 0.1% ointment) 10/17/[address] [phone] Esha Grimm PA-C Medication Refill 10/11/2024 MyC Medical Advice [address] [phone] Diana Desir, [facility] 10/10/2024 MyC Medical Advice [address] [place] [phone] Carley Myles RN 10/09/[address] [phone] Livan Sharif MD Call Back (Heart Monitor) 10/04/2024 10:00 AM CDT Office Visit [facility] [place] [address] [place] [phone] Audrey Díaz PA-C Throat pain (Primary Dx) 10/04/2024 Travel 10/02/2024 MyC Medical Advice [address] [phone] Esha Grimm PA-C 10/01/2024 MyC Medical Advice [address] [place] [phone] Marija Bailey, VJ 10/01/2024 Telephone [place] [address] [facility] [address] [place] [address] Fabiano Correa, CUSTOMS PATROL OFFICER Orders (Zio Patch) from Last 3 Months Immunizations Immunization Administration [...] Answer Date Recorded PHQ-2 Score 1 10/24/2024 [facility] - Occupational Stress Questionnaire [...] exercise at this level? 20 min 05/07/2024 [place] Depression Scale Answer Date Recorded [place] Depression Score 5 01/14/2021 Last EPDS Self [...] PM CDT Legal Sex Female 4:13 AM MEMBERSHIP DIRECTOR Gender Identity Female 03/02/2021 5:45 PM [...] Mass Index 32.99 12/19/2024 1:33 PM CDT Plan of Treatment Upcoming Encounters Date Type Department Care Team (Latest Contact Info) Description 01/02/2025 1:10 PM CDT Ancillary Procedure [facility] [address] [place] [phone] Lauren Claudio PA-C [address] [place] [phone] 01/17/2025 10:00 AM CDT Appointment [facility] Respiratory [address] [place] [address] Lauren Claudio PA-C [address] [place], [place] [phone] 04/16/2025 11:00 AM CDT Virtual Visit [facility] [address] 4th [place] [phone] Meredith Crarera PA-C [address] [place], [place] [phone] Health Maintenance Due Date Last Done Comments [...] 03/10/2023, 09/22/2021, Additional history exists CHLAMYDIA SCREENING 12/28/2025 12/28/2024, 11/20/2024, 09/20/2024, Additional history exists PAP 05/01/2027 05/01/2024, 09/22/2021 [...] 05/31/2024, Additional history exists HIV SCREENING Completed 12/28/2024, 11/08, 08/28/2024, Additional history exists MENINGITIS B VACCINE Aged Out No long er eligible based on patient's age to complete this topic Procedures Procedure Name Priority Date/Time Associated Diagnosis Comments HIV ANTIGEN ANTIBODY COMBO Routine 12/28/2024 9:16 AM CDT Vaginal discharge 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 IGG Routine 12/28/2024 9:16 AM CDT Vaginal discharge TREPONEMA ABS W REFLEX TO RPR AND TITER Routine 12/28/2024 9:16 AM CDT Vaginal discharge CHLAMYDIA TRACHOMATIS/NEISSERIA GONORRHOEAE BY PCR Routine 12/28/2024 9:07 AM CDT Vaginal discharge HCG QUALITATIVE URINE Routine 12/28/2024 9:07 AM CDT Vaginal discharge UA MACROSCOPIC WITH REFLEX TO MICRO AND CULTURE Routine 12/28/2024 9:07 AM CDT Vaginal discharge MULTIPLEX VAGINAL PANEL BY PCR Routine 12/28/2024 8:55 AM CDT Vaginal discharge FERRITIN Routine 12/19/2024 2:49 PM CDT Anemia, unspecified type IRON AND IRON BINDING CAPACITY Routine 12/19/2024 2:49 PM CDT Anemia, unspecified type CALPROTECTIN FECES Routine 12/17/2024 2: 53 PM CDT Viral URI with cough Irregular bowel habits ZIO PATCH MAIL OUT Routine 12/11/2024 5: [...] TRACING ONLY STAT 10/28/2024 3:14 PM CDT AK REFRACTION Routine 10/24/2024 4:23 PM CDT Hyperopia [...] Routine 10/04/2024 10:08 AM CDT Throat pain HEPATITIS C ANTIBODY Routine 08/03/2024 3:04 PM MEMBERSHIP DIRECTOR Screen for STD (sexually transmitted disease) GYNECOLOGIC CYTOLOGY Routine 09/22/2021 3:14 PM CDT Encounter for screening for cervical cancer from Last 3 Months or Most Recently Relevant to Health Maintenance Results * Herpes Simplex Virus 1 and 2 [...] R esult SPECIALTY CORE/PROT/ENDO Specialty Core/Prot/Endo [address] [facility], Room [address] SPECIALTY LABS Specialty Lab [address] [facility], Room [address] * HIV Antigen Antibody Combo (12/28/2024 9:16 AM CDT) Only the most recent of2 resultswithin the time period is included. [facility] HIV Antigen Antibody Combo Nonreactive Nonreactive 12/28/2024 2:35 PM CDT LABORATORY Comment:Negative HIV-1 p24 a [...] - BLOOD ORDERABLES Final R esult LABORATORY [facility] [place] Core Lab [address] [facility], [address] [phone] * Treponema Abs w Reflex to RPR and Titer (12/28/2024 9:16 AM CDT) Only the most recent of2 resultswithin the time period is included. Treponema Antibody Total Nonreactive Nonreactive 12/28/2024 9:46 PM CDT SPECIALTY LABS Blood BLOOD SPECIMEN / Unknown Venipuncture / Unknown 12/28/2024 9:16 AM CDT 12/28/2024 9:16 AM CDT Esha Grimm PA-C LAB - BLOOD ORDERABLES Final R esult SPECIALTY CORE/PROT/ENDO Specialty Core/Prot/Endo [address] [facility], [address] SPECIALTY LABS Specialty Lab [address] [facility], [address] [phone] * HCG qualitative urine (12/28/2024 9:07 AM CDT) Pathologist [facility] hCG Urine Qualitative Negative Negative REINA 12/28/2024 9:41 AM CDT LABORATORY Comment:This test is for scr eening purposes. Results should be interpreted along with the clinical picture. Confirmation testing is available if warranted by ordering [id number], HCG Quantitative . Urine URINE SPECIMEN / Unknown Non-blood Collection / Unknown 12/28/2024 9:07 AM CDT 12/28/2024 9:37 AM CDT Esha Grimm PA-C LAB - URINE ORDERABLES Final R esult LABORATORY [facility] Acute Care Lab [address] Lab (1st floor, no room number) [place] [address], [facility] * Chlamydia & Gonorrhea by PCR, [facility] Collect (12/28/2024 9:07 AM CDT) Chlamydia Trachomatis Negative Negative 12/28/2024 5:25 PM CDT [facility] LABORATORY Comment: Negative for C. trachomatis rRNA by diamond polisher mediated amplification. A negative result by diamond polisher mediated amplification does not preclude the presence of infection because results are dependent on proper and adequate collection, absence of inhibitors and sufficient rRNA to be detected. Neisseria gonorrhoeae Negative Negative 12/28/2024 5:25 PM CDT [facility]ORAT[facility] Comment:Negative for N. gono rrhoeae rRNA by diamond polisher mediated amplification. A negative result by diamond polisher mediated amplification does not preclude the presence [...] Final Result [facility] LABORATORY [facility] Inf. Diseases Diag. Lab [address] [facility], [address] [place] [phone] * UA Macroscopic with reflex to Microscopic and Culture (12/28/2024 9:07 AM CDT) Only the most recent of2 resultswithin the time period is included. Color Urine Straw Colorless, Straw, Light Yellow, Yellow 12/28/2024 11:06 AM CDT LABORATORY Appearance Urine Clear Clear 12/29/19 11:06 AM CDT [facility] LABORATORY Glucose Urine Negative Negative mg/dL 12/28/2024 11:06 AM CDT RH LABORATORY Bilirubin Urine Negative Negative 11:06 AM CDT RH LABORATORY Ketones Urine Negative Negative mg/dL 12/28/2024 11:06 AM CDT LABORATORY Specific [place] Urine 1.006 1.003 - 1.035 12/28/2024 11:06 [...] - URINE ORDERABLES Final R esult LABORATORY [facility] Acute Care Lab [address] [facility] Lab (1st floor, no room number) [place] [address] * Multiplex Vaginal Panel by PCR (12/28/2024 8:55 AM CDT) [facility] Bacterial Vaginosis Organism DNA Negative Negative 12/28/2024 [...] Xpert Xpress MVP test, performed on the [employer], is an automated, qualitative in [...] Final Result [facility] LABORATORY [facility] Inf. Diseases Diag. Lab [address] [facility], [address] [place] [address] * Iron and iron binding capacity (12/19/2024 2:49 PM CDT) [facility] Iron 122 37 - 145 ug/dL 12/20/2024 1:46 AM CDT [facility] LABORATORY Iron Binding Capacity 378 240 - 430 ug/dL 12/20/2024 1:46 AM CDT [facility] LABORATORY Iron Sat Index 32 15 - 46 % 12/20/2024 1:46 AM CDT [facility] LABORATORY Blood BLOOD SPECIMEN / Unknown Venipuncture / Unknown 12/19/2024 2:49 PM CDT 12/19/2024 2:49 PM CDT Lauren DOWC LAB - BLOOD ORDERABLES Fin al Result LABORATORY [facility] [place] Core Lab [address] [facility], [address] [phone] * Ferritin (12/19/2024 2:49 PM CDT) Pathologist [facility] Ferritin 18 6 - 175 ng/mL 12/20/2024 1:46 AM CDT U LABORATORY Blood BLOOD SPECIMEN / Unknown Venipuncture / Unknown 12/19/2024 2:49 PM CDT 12/19/2024 2:49 PM CDT Lauren DOWC LAB - BLOOD ORDERABLES Fin al Result Performing Organization Address City/[facility]/ZIP Co de Phone Number LABORATORY [facility] Core Lab [address] [facility], [address] [phone] * (ABNORMAL) Calprotectin Feces (12/17/2024 2:53 PM CDT) Pathologist [facility] Calprotectin Feces 120.0(H) 0.0 - 49.9 mg/kg 12/19/2024 10:57 AM CDT SPECIALTY CORE/PROT/END O Comment:Borderline result, p lease re-evaluate and recollect a new sample in 4-6 weeks. Stool RECTAL CONTENTS / Unknown Non-blood Collection / Unknown 12/17/2024 2:53 PM CDT 12/17/2024 2:53 PM CDT Meredith ALCALA-C LAB - STOOLS ORDERABLES Fin al Result [facility] SPECIALTY CORE/PROT/ENDO Specialty Core/Prot/Endo [address] [facility] Unit Building, Room [address] * ZIO PATCH MAIL OUT (12/11/2024 5:33 [...] CDT EXAM: XR CHEST 2 VIEWS LOCATION: [facility] DATE: 12/04/2024 INDICATION: Acute cough COMPARISON: None. Procedure Note Gareth Murray MD - 12/05/2024 EXAM: XR CHEST 2 VIEWS LOCATION: [facility] DATE: 12/04/2024 INDICATION: Acute cough COMPARISON: [...] AM CDT Narrative 11/22/2024 1:45 PM CDT [id number]^OTONIEL^LUIS ANGEL^[facility] Echocardiography Laboratory [address] [place] [address] Name: NAHUN CLARK : 2000 Study Date: [...] Procedure Note Samantha Singh MD - 11/22/2024 [id number]^LEONE^LUIS ANGEL^[facility] Echocardiography Laboratory [address] [place] [address] Name: NAUHN CLARK : 2000 Study Date: 11/22/2024 09:53 [...] LAB - BLOOD ORDERABLES Final Result LABORATORY [facility] Acute Care Lab [address] 1[address] floor, [address] [place] [address], [facility] [phone] * Troponin T, High Sensitivity (11/22/2024 5:00 AM CDT) Only the most recent of4 resultswithin the time period is included. [facility] Troponin T, High Sensitivity <6 <=14 [...] LAB - BLOOD ORDERABLES Final Result LABORATORY [facility] Acute Care Lab [address] [facility]st [address], [address] [place] [address], [facility] [phone] * Erythrocyte sedimentation rate auto (11/22/2024 5:00 AM CDT) Erythrocyte Sedimentation Rate 8 0 - 20 mm/hr 11/22/2024 9:20 AM CDT LABORATORY Blood BLOOD SPECIMEN / Unknown Venipuncture / Unknown 11/22/2024 5:00 AM CDT 11/22/2024 5:04 AM CDT Elizabeth Griffin MD LAB - BLOOD ORDERABLES Final Result LABORATORY [facility] [place] Core Lab [address] [facility], [address] [place] [address], [facility] * (ABNORMAL) CRP inflammation (11/22/2024 5:00 AM CDT) Only the most recent of2 resultswithin the time period is included. CRP Inflammation 13.82(H) <5.00 mg/L 11/22/2024 5:25 AM CDT LABORATORY Blood BLOOD SPECIMEN / Unknown Venipuncture / Unknown 11/22/2024 5:00 AM CDT 11/22/2024 5:04 AM CDT Elizabeth Griffin MD LAB - BLOOD ORDERABLES Final Result LABORATORY [facility] Acute Care Lab [address] 1st floor, [address] [place] [address], [facility] [phone] * (ABNORMAL) Basic metabolic panel (11/22/2024 5:00 AM CDT) Only the most recent of3 resultswithin the time period is included. [facility] Sodium 138 135 - 145 mmol/L [...] 11/22/2024 5:25 AM CDT LABORATORY Comment:eGFR calculated us2020 CKD-EPI equation. Calcium 8.5(L) 8.8 - 10.4 mg/dL 11/22/2024 5:25 AM CDT LABORATORY Glucose 106(H) 70 - 99 mg/dL 11/22/2024 5:25 AM CDT LABORATORY Blood BLOOD SPECIMEN / Unknown Venipuncture / Unknown 11/22/2024 5:00 AM CDT 11/22/2024 5:04 AM CDT Elizabeth Griffin MD LAB - BLOOD ORDERABLES Final Result SH LABORATORY [facility] Acute Care Lab [address], [address] [place] [address], [facility] [phone] * EKG 12-lead, tracing only (11/22/2024 4:45 AM CDT) Only the most recent of4 resultswithin the time period is included. Systolic Blood Pressure mmHg RADIOLOGY RESULTS Diastolic Blood Pressure mmHg RADIOLOGY RESULTS Ventricular Rate 91 BPM RAD IOLOGY RESULTS Atrial Rate 91 BPM RADIOLOG Y RESULTS AK Interval 148 ms RADIOLOG Y RESULTS QRS Duration 84 ms RADIOLO GY RESULTS QT 358 ms RADIOLOGY RESULTS QTc 440 ms RADIOLOGY RESULTS P Flushing 31 degrees RADIOLOGY RESULTS R AXIS 33 degrees RADIOLOGY RESULTS T Flushing 20 degrees RADIOLOGY RESULTS Interpretation ECG Sinus rhythm Normal ECG When compared with ECG of 21-Nov-2024 22:53, (unconfirmed) No significant change was found Confirmed by GENERATED REPORT, COMPUTER ([id number]), development editor NIGEL CARD ([id number]) on 11/22/2024 7:57:36 AM RADIOLOGY RESULTS 11/22/2024 [...] BLOOD ORDERABLES Fi nal Result RH LABORATORY [facility] Acute Care Lab [address] Lab (1st floor, no room number) [place] [address], [facility] * Extra Blue Top Tube (11/22/2024 12:06 AM CDT) Hold Specimen JIC 11/22/2024 1:31 AM CDT LABORATORY Blood VENOUS LINE / Unknown Venipuncture / Unknown 11/22/2024 12:06 AM CDT 11/22/2024 12:27 AM CDT Sha Ness MD LAB - BLOOD ORDERABLES Fi nal Result LABORATORY [facility] Acute Care Lab [address] [facility] Lab (1st floor, no room number) [place] [address], [facility] * (ABNORMAL) Influenza A/B, RSV and SARS-CoV2 PCR (COVID-19) Nasopharyngeal (11/21/2024 11:17 PM CDT) Pathologist [facility] Influenza A PCR Negative Negative 11/22/2024 12:10 [...] the Xpert Xpress CoV2/Flu/RSV Assay on the Liquid Spins GeneXpert Instrument. This test should be ordered [...] management. This test was validated by the [facility] Up. These laboratories are certified under the Clinical Laboratory Improvement Amendments of 1988 (CLIA-88) as qualified to perfom high complexity laboratory testing. Sha Ness MD LAB - MICRO GENERAL ORDER GARY Final Result RH LABORATORY [facility] Acute Care Lab [address] Lab (1st floor, no room number) [place] [address], [facility] * TSH with free T4 reflex (11/20/2024 3:16 PM CDT) TSH 1.55 0.30 - 4.20 uIU/mL 11/21/2024 1:11 PM CDT PH LABORATORY Blood BLOOD SPECIMEN / Unknown Venipuncture / Unknown 11/20/2024 3:16 PM CDT 11/20/2024 3:16 PM CDT Meredith Carrera PA-C LAB - BLOOD ORDERABLES Shira l Result PH LABORATORY [facility] Acute Care Lab [address] [facility] Lab (Main level, no room number) [place] [address], [facility] * (ABNORMAL) UA Microscopic with [...] CDT Urine Culture not indicated Estephania Flannery CUSTOMS PATROL OFFICER LAB - URINE ORDERABLES Shira l Result LABORATORY [facility] Lab [address] [facility] Lab (no room number, 1st floor of clinic) [place] [address], [facility] * UA with Microscopic reflex [...] mg/dL 11/20/2024 11:47 AM CDT LABORATORY [facility] [place] Urine 1.015 1.003 - 1.035 11/20/2024 11:47 [...] CDT 11/20/2024 11:45 AM CDT Estephania Flannery CUSTOMS PATROL OFFICER LAB - URINE ORDERABLES Shira l Result Performing Organization Address [facility]/ZIP Co de Phone Number LABORATORY [facility] Lab [address] [facility] Lab (no room number, 1st floor of [facility]) [place] [address] * (ABNORMAL) Wet prep - Clinic [...] ORDERAB LES Final Result Performing Organization Address [facility]/ZIP Co de Phone Number LABORATORY [facility] Lab [address] [facility] Lab (no room number, 1st floor of [facility] [place] [address] * NEISSERIA GONORRHOEA PCR (11/20/2024 11:45 AM CDT) Neisseria gonorrhoeae Negative Negative 11/21/2024 1:52 PM CDT [facility] Comment:Negative for N. gono rrhoeae rRNA by diamond polisher mediated amplification. A negative result by diamond polisher mediated amplification does not preclude the presence [...] ORDERAB LES Final Result Performing Organization Address City/[facility] Co de Phone Number [facility]D LABORATORY [facility] Inf. Diseases Diag. Lab [address] [facility], Room [place] [id number] * CHLAMYDIA TRACHOMATIS PCR (11/20/2024 11:45 AM CDT) Chlamydia trachomatis Negative Negative 11/21/2024 1:52 PM CDT [facility] Comment:A negative result by diamond polisher mediated amplification does not preclude the presence [...] ORDERAB LES Final Result Performing Organization Address [facility] de Phone Number [facility] LABORATORY [facility] Inf. Diseases Diag. Lab [address] [facility], [address] * WBC and Differential (11/20/2024 11:41 AM [...] LAB - BLOOD ORDERABLES Shira snyder Result LABORATORY [facility] [address] [facility] Lab (no room number, 1st floor of clinic) [place] [address], [facility] * Tissue transglutaminase dennis IgA and IgG [...] AM CDT 11/20/2024 11:40 AM CDT Meredith A Affeldt PA-C LAB - BLOOD ORDERABLES Shira l Result [facility] SPECIAL[facility] CORE/PROT/ENDO [facility] Specialty Core/Prot/Endo [address] [facility], Room [address] * IgA (11/20/2024 11:40 AM CDT) Pathologist [facility] Immunoglobulin A 146 84 - 499 mg/dL 11/21/2024 7:42 AM CDT [facility] SPECIAL[facility] CORE/PROT/END O Blood BLOOD SPECIMEN / Unknown Venipuncture / Unknown 11/20/2024 11:40 AM CDT 11/20/2024 11:40 AM CDT Meredith Torrezt PA-C LAB - BLOOD ORDERABLES Shira l Result Performing Organization Address City/[facility]/ZIP Co de Phone Number UM SPECIALTY CORE/PROT/ENDO Specialty Core/Prot/Endo [address] [facility], [facility] [address] * COVID-19 Virus (Coronavirus) by PCR Nose (11/20/2024 10:45 AM CDT) Only the most recent of2 resultswithin the time period is included. [facility] SARS CoV2 PCR Negative Negative 11/21/2024 11:23 AM CDT [facility] LABORATORY Comment:NEGATIVE: SARS-CoV-2 (COVID-19) RNA not detected, presumed negative. Swab NASAL STRUCTURE / Unknown Non-blood Collection / Unknown 11/20/2024 10:45 AM CDT 11/20/2024 10:47 AM CDT Narrative [facility] LABORATORY - 11/21/2024 11:23 AM CDT Testing was performed using the Aptima SARS-CoV-2 Assay on the Selatra Instrument System. Additional information about this Emergency [...] COVID-19. This test was validated by the [facility] Diagnostic [facility]. This laboratory is certified under the Clinical Laboratory Improvement Amendments of 1988 (CLIA-88) as qualified to perform high complexity laboratory testing. Amaris Pacsal PA-C LAB - MICRO GENERAL ORD ERABLES Final Result [facility] LABORATORY [facility] Inf. Diseases Diag. Lab [address] [facility], [address] [place] [address] * Influenza A & B Antigen [...] MICRO GENERAL ORD ERABLES Final Result LABORATORY [facility] Lab [address] [facility] Lab (no room number, 1st floor of clinic) [place] [address] * HCG QUALitative (blood) (10/28/2024 4:20 PM CDT) hCG Serum Qualitative Negative Negative REINA 10/28/2024 5:14 PM CDT RH LABORATORY Comment:This test is for scr eening purposes. Results should be interpreted along with the clinical picture. Confirmation testing is available if warranted by ordering [id number], HCG Quantitative . Blood STRUCTURE OF RIGHT UPPER LIMB / Unknown Venipuncture / Unknown 10/28/2024 4:20 PM CDT 10/28/2024 4:31 PM CDT Jeffrey Fofana MD LAB - BLOOD ORDERABLES Fin al Result Performing Organization Address City/[facility]/ZIP Co de Phone Number LABORATORY [facility] Acute Care Lab [address] Lab (1st floor, no room number) [place] [address] * D dimer quantitative (10/28/2024 4:20 PM CDT) [facility] D-Dimer Quantitative <0.27 0.00 - [...] ORDERABLES Fin al Result Performing Organization Address [facility]/ZIP Co de Phone Number LABORATORY [facility] Acute Care Lab [address] Lab (1st floor, no room number) [place] [address], [facility] * Streptococcus A Rapid Screen w/Reflex to PCR - Clinic Collect (10/04/2024 10:08 AM CDT) [facility] Group A Strep antigen Negative Negative 10/04/2024 10:24 AM CDT LABORATORY Swab STRUCTURE OF ANTERIOR PORTION OF NECK / Unknown Non-blood Collection / Unknown 10/04/2024 10:08 AM CDT 10/04/2024 10:15 AM CDT Audrey Snyder [employer] PA-C LAB - MICRO GENERAL ORDERAB LES Final Result LV LABORATORY [facility] Lab [address] [facility] (no room number, 1st floor of clinic) [place] [address], [facility] * Group A [...] Xpress Strep A test, performed on the [employer] [place] Instrument Systems, is a rapid, qualitative in [...] (PCR) to detect Streptococcus pyogenes DNA. Audrey Elie [employer] PA-C LAB - MICRO GENERAL ORDERAB LES Final Result [facility] IDD LABORATORY [facility] Inf. Diseases Diag. Lab [address] [facility], [address] [place] [address] * Hepatitis C antibody (08/03/2024 3:04 PM MEMBERSHIP DIRECTOR) Hepatitis C Antibody Nonreactive Nonreactive 08/03/2024 8:55 PM MEMBERSHIP DIRECTOR [facility] LAB[facility]ATORY Comment:A nonreactive screen ing test [...] Unknown Venipuncture / Unknown 08/03/2024 3:04 PM MEMBERSHIP DIRECTOR 08/03/2024 3:05 PM MEMBERSHIP DIRECTOR us Jaron Hager PA-C LAB - BLOOD ORDERABLES Final Result U LABORATORY [facility] Core Lab [address] [facility], [address] [address] * Pap screen reflex to HPV [...] LABS Previous Abnormal? No 09/25/2021 10:27 AM T SPECIALTY LABS Performing Labs The technical component of this testing was completed at [facility] 09/25/2021 10:27 AM CDT UM SPECIALTY LABS Brushing CERVIX UTERI STRUCTURE / Unknown 09/22/2021 3:14 PM CDT 09/22/2021 3:48 PM CDT Marija HEMPHILL AP Final Re sult UM SPECIALTY LABS UM Specialty Lab [address] [facility] [address], [address] [place] [address], [facility] [phone] from Last 3 Months or Most Recently Relevant to Health Maintenance Insurance [address] [place] [address] [facility] AD[facility] * Guarantor: Nahun Clark Account Type Relation to Patient Date of Phone Billing Address Medication Therapy Self [address] [place] [phone] [facility] * Guarantor: Nahun Clark Account Type Relation to Patient Date of Phone Billing Address Medication Therapy Self [address] [place] [phone] [facility] Advance Directives For more information, please contact: [phone] * Full Code (Latest Code Status on File) Date Activated Date Inactivated Comments 11/22/2024 7:03 AM 11/22/2024 12:36 PM All basic a nd advanced life-sustaining interventions are performed as appropriate Question Answer Comments Code status determined by: Other (please norman mayers) * Full Code Date Activated Date Inactivated Comments 01/14/2021 7:36 AM 01/15/2021 6:05 PM All basic and advanced life-sustaining interventions are performed as appropriate Question Answer Comments Code status determined by: Discussion with corona nt/ legal decision maker Care Teams Strategy Analyst Relationship Specialty Start Date End Date Esha Grimm PA-C [address] [place] [phone] PCP - General Family Medicine 05/04/23 Diana Desir, [facility] [address] [place] [address] Pharmacist Pharmacist 04/17/21 Rain Galaviz PA-C [address] [place] [address] [address] [place] [address] Physician Transportation Logistics Internship Dermatology 04/28/21 Tavia Wyatt MD [address] [place] [address] [address] [place] [address] Dermatology 07/14/21 Erica Farrell APRN BLACK ASH BURNER OPERATOR [address] [place] [phone] Nurse Practitioner Cardiovascular Disease 09/09/21 Rich Barrett MD [address] [place] [phone] Physician Ophthalmology 01/21/22 Neil Kent MD [address] [place], [place] [phone] Dermatology 02/24/22 Diana Desir, [facility] [address] [place] [address] Assigned MTM Pharmacist 04/07/22 Livan Sharif MD [address] [place] [phone] Cardiovascular Disease 05/14/22 Catherine Cm MD [address] [place] 795195 Cardiovascular Disease 07/21/22 Valery Veronica PA-C [address] [place] [address] [phone] Physician Transportation Logistics Internship Dermatology 07/21/22 Brea Quinn APRN CNP [address] [place] [address] 885135 Nurse Practitioner Dermatology 09/21/22 Jelena David OD [address] [place] [address] [place] [address] MD Ophthalmology 06/15/23 Esha Grimm PA-C [address] [place] [phone] Assigned PCP 07/16/23 Valery Veronica PA-C [address] [place] [address] [phone] Physician Transportation Logistics Internship Dermatology 09/19/23 Rey Tay MD [address] [place] [address] [phone] Gastroenterology 09/20/23 Rocky Zepeda DO [address] [place] [address] 583465 Physician Gastroenterology 09/20/23 Philip Dumont MD [address] [place] [address] 779715 Physician Ophthalmology 09/22/23 Meredith Carrera PA-C [address] [place] [address] Assigned Gastroenterology Provider 11/01/23 Neil Kent MD [address] [place] [address] Dermatology 11/02/23 [place] [address] [place] [address] Neurological Surgery 12/26/23 Audrey Waite PA-C [address] [place] [address] Physician Transportation Logistics Internship Dermatology 02/28/24 Valery Veronica PA-C [address]120 [address] [place] [address] Physician Transportation Logistics Internship Dermatology 04/10/24 Herminia Hatch MD [address] [place] [address] [phone] Assigned Rheumatology Provider 07/02/24 Jelena David OD [address] [place] [address] [place] [address] Ophthalmology 08/30/24 [place] [address] [place] [address] Assigned Neuroscience Provider 09/30/24 Maru Man PA-C [address] [place] [address] Physician Transportation Logistics Internship Dermatology 10/03/24 Maru Man PA-C [address] [place] [address] Physician Transportation Logistics Internship Dermatology 10/22/24 Jelena David OD [address] [place] [address] Assigned Surgical Provider 10/31/24 Fabiano Correa NP [address] [place] [address] Assigned Heart and Vascular Provider 11/30/24
--- OUTSIDE RECORDS SUMMARY | 2024-12-31 03:12 | XMS_ITS | Encounter Summary ---
Author Organization [facility] Address [address] [place] [address] Care Team Providers Care Life Claims Examiner Name Role Phone Diana Desir [facility] Unavailable [phone] Rain GalavizC Unavailable [phone] Tavia Wyatt MD Unavailable [phone] Erica Farrell APRN YOUTH LIAISON OFFICER Unavailable Rich Barrett MD Unavailable [phone] Neil Kent MD Unavailable ThangKendrickDiana Stanislav [facility] Unavailable Livan Sharif MD Unavailable Catherine Cm MD Unavailable + Valery Veronica-C Unavailable Brea Quinn APRN YOUTH LIAISON OFFICER Unavailable Esha Grimm PA-C Primary Care Provider Jelena aDvid OD Unavailable Esha Grimm PA-C Unavailable Valery Veronica PA-C Unavailable Rey Tay MD Unavailable DuaneRocky Unavailable Philip Dumont MD Unavailable Meredith Carrera PA-C Unavailable [phone] Neil Kent MD Unavailable Juan Pablo Emmanuel MD Unavailable [phone] Audrey Waite PA-C Unavailable Valery Veronica PA-C Unavailable Herminia Hatch MD Unavailable Jelena David OD Unavailable Juan Pablo Emmanuel MD Unavailable Maru ManC Unavailable Maru ManC Unavailable Jelena David OD Unavailable [phone] Fabiano Correa NP Unavailable Encounter Details Date Type Department Care Team (Late st Contact Info) Description 12/20/2024 Results Follow-Up [facility] [address] [place] [phone] Lauren Claudio PA-C [id number] [place] [address] Subj: Message about your results Social [...] 10/24/2024 [facility] of Occupat [...] at this level? 20 min 05/07/2024 [place] Depression Scale Answer Date Recorded [place] Depression Score 5 01/14/2021 Last EPDS Self [...] PM CDT Legal Sex Female 4:13 AM PERSONAL CONSULTANT Gender Identity Female 03/02/2021 5:45 PM CDT Sexual Orientation Straight 02/28/2020 12 :51 AM CDT documented as of this encounter Plan of Treatment Upcoming Encounters Date Type Department Care Team (Latest Contact Info) Description 01/02/2025 1:10 PM CDT Ancillary Procedure [facility] [id number] [place] [phone] Lauren Claudio PA-C [address] [place] [address] 01/17/2025 10:00 AM CDT Appointment [facility] [address] [place] [phone] Lauren Claudio PA-C [address] [place], [place] [phone] 04/16/2025 11:00 AM CDT Virtual Visit [facility] [address] 4th [place] [phone] Meredith Carrera PA-C [address] [place] [address] documented as of this encounter Visit Diagnoses Not on filedocumented in this encounter Additional Health Concerns Assessment Noted Time PHQ-9 Depression Total Score: 5 10/25/19 25 10:38 AM CDT documented as of this encounter Care Teams Life Claims Examiner Relationship Specialty Start Date End Date Esha Grimm PA-C [address] [place] [phone] PCP - General Family Medicine 05/04/23 Diana Desir, [facility] [address] [place] [address] Pharmacist Pharmacist 04/17/21 Rain Galaviz PA-C [address] [place] [address] [address] [place] [address] Physician Mathematics Faculty Member Dermatology 04/28/21 Tavia Wyatt MD [address] [place] [address] [address] [place] [address] Dermatology 07/14/21 Erica Farrell APRN YOUTH LIAISON OFFICER [address] [place] [address] Nurse Practitioner Cardiovascular Disease 09/09/21 Rich Barrett MD [address] [place], [place] [phone] Physician Ophthalmology 01/21/22 Neil Kent MD 500 [place] [address] Dermatology 02/24/22 Diana Desir, [facility] [address] [place] [address] Assigned [facility] Pharmacist 04/07/22 Livan Sharif MD [address] [address] Cardiovascular Disease 05/14/22 Catherine Cm MD [address] [address] Cardiovascular Disease 07/21/22 Valery Veronica, PA-C [address] [place] [address] Physician Mathematics Faculty Member Dermatology 07/21/22 Brea Quinn APRN YOUTH LIAISON OFFICER [address] [place], [place] 994395 Nurse Practitioner Dermatology 09/21/22 Jelena David OD [address] [facility] [place] [address] MD Ophthalmology 06/15/23 Esha Grimm PA-C [address] [place] [phone] Assigned PCP 07/16/23 Valery Veronica PA-C [address] [place] [address] [phone] Physician Mathematics Faculty Member Dermatology 09/19/23 Rey Tay MD [address] [place] [address] [phone] MD Gastroenterology 09/20/23 Rocky Zepeda DO [address] [place] [address] 067585 Physician Gastroenterology 09/20/23 Philip Dumont MD [address] [place] [address] 160695 Physician Ophthalmology 09/22/23 Meredith Carrera PA-C [address] [place] [address] 125725 Assigned Gastroenterology Provider 11/01/23 Neil Kent MD [address] [place] [address] Dermatology 11/02/23 [place] [address] [place] [address] Neurological Surgery 12/26/23 Audrey Waite PA-C [address] [place] [address] Physician Mathematics Faculty Member Dermatology 02/28/24 Valery Veronica PA-C [id number] [place] [address] Physician Mathematics Faculty Member Dermatology 04/10/24 Herminia Hatch MD [address] [place] [address] Assigned Rheumatology Provider 07/02/24 Jelena David OD [address] [place] [address] [place] [address] Ophthalmology 08/30/24 [place] [address] [place] [address] Assigned Neuroscience Provider 09/30/24 Maru Man PA-C [address] [place] [address] Physician Mathematics Faculty Member Dermatology 10/03/24 Maru Man PA-C [address] [place] [address] Physician Mathematics Faculty Member Dermatology 10/22/24 Jelena David OD [address] [place] [address] [place] [address] Assigned Surgical Provider 10/31/24 Fabiano Correa AUTOTRANSFUSIONIST [address] [place] [address] Assigned Heart and Vascular Provider 11/30/24 documented as of this encounter
--- OUTSIDE RECORDS SUMMARY | 2024-12-31 03:13 | XMS_ITS | Encounter Summary ---
Author Organization [facility] Address [address] [place] [address] Care Team Providers Care Lower In Supervisor Name Role Phone Diana Desir [facility] Unavailable [phone] Rain GalavizC Unavailable Tavia Wyatt MD Unavailable [phone] Erica Farrell APRN RAILROAD WHEELS AND AXLE INSPECTOR Unavailable Rich Barrett MD Unavailable [phone] Neil Kent MD Unavailable ThangKendrickDiana Stanislav [facility] Unavailable [phone] Livan Sharif MD Unavailable Catherine Cm MD Unavailable + Valery Veronica-C Unavailable Brea Quinn APRN RAILROAD WHEELS AND AXLE INSPECTOR Unavailable Esha Grimm PA-C Primary Care Provider Jelena David OD Unavailable Esha Grimm PA-C Unavailable [phone] Valery Veronica PA-C Unavailable [phone] Rey Tay MD Unavailable DuaneRocky Unavailable Philip Dumont MD Unavailable [phone] Meredith Carrera PA-C Unavailable [phone] Neil Kent MD Unavailable Juan Pablo Emmanuel MD Unavailable Audrey Waite PA-C Unavailable [phone] Valery Veronica PA-C Unavailable Herminia Hatch MD Unavailable Jelena David OD Unavailable Juan Pablo Emmanuel MD Unavailable [phone] Maru Man-C Unavailable [phone] Maru Man-C Unavailable [phone] Jelena David OD Unavailable Fabiano Correa NP Unavailable [phone] Encounter Details Date Type Department Care Team (Late st Contact Info) Description 12/20/2024 [facility] Medical Advice Adult Call Center [address] [place] [phone] Flory Haque, INSTRUMENT ROOM TECHNICIAN Social History Tobacco Use Types Packs/Day [...] you attend [facility] or buddhist services? 1 to 4 times [...] Answer Date Recorded PHQ-2 Score 1 10/24/2024 [facility] ional [facility] - Occupational Stress Questionnaire Answer Date [...] exercise at this level? 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 ANALYST Gender Identity Female 03/02/2021 5:45 PM CDT Sexual Orientation Straight 02/28/2020 12 :51 AM CDT documented as of this encounter Plan of Treatment Upcoming Encounters Date Type Department Care Team (Latest Contact Info) Description 01/02/2025 1:10 PM CDT Ancillary Procedure [facility] [address] [place] [phone] Lauren Claudio PA-C [address] [place], [place] [phone] 01/17/2025 10:00 AM CDT Appointment [facility] Respiratory [address] [place] [phone] Lauren Claudio PA-C [address] [place], [place] [phone] 04/16/2025 11:00 AM CDT Virtual Visit [facility] [address] 4[address] [place] [phone] Meredith Carrera PA-C [address] [place] [address] documented as of this encounter Visit Diagnoses Not on filedocumented in this encounter Additional Health Concerns Assessment Noted Time PHQ-9 Depression Total Score: 5 10/25/19 25 10:38 AM CDT documented as of this encounter Care Teams Lower In Supervisor Relationship Specialty Start Date End Date Esha Grimm PA-C [address] [place] [phone] PCP - General Family Medicine 05/04/23 Diana Desir, [facility] [address] [facility] [place] [address] Pharmacist Pharmacist 04/17/21 Rain Galaviz PA-C [address] [place] [address] [address] [place] [address] Physician Ladle Handler Dermatology 04/28/21 Tavia Wyatt MD [address] [place] [address] [address] [place] [address] Dermatology 07/14/21 Erica Frarell APRN RAILROAD WHEELS AND AXLE INSPECTOR [address] [facility] [address] [place] [address] Nurse Practitioner Cardiovascular Disease 09/09/21 Rich Barrett MD [address] [place] [address] Physician Ophthalmology 01/21/22 Neil Kent MD 500 [place] [address] Dermatology 02/24/22 [facility] [address] [place] [address] Assigned [facility] Pharmacist 04/07/22 Livan Sharif MD [address] [place], [place] [address] Cardiovascular Disease 05/14/22 Catherine Cm MD [address] [place], [place] 6[address] Cardiovascular Disease 07/21/22 Valery Veronica PA-C [address] [place], [place] [address] Physician Ladle Handler Dermatology 07/21/22 Brea Quinn APRN RAILROAD WHEELS AND AXLE INSPECTOR 500 [place] [address] Nurse Practitioner Dermatology 09/21/22 Jelena David OD [address] [facility] [place] [address] Ophthalmology 06/15/23 Esha Grimm PA-C [address] [place] [phone] Assigned PCP 07/16/23 Vlaery Veronica PA-C [address] [place] [address] Physician Ladle Handler Dermatology 09/19/23 Rey Tay MD [address] [place] [address]285 MD Gastroenterology 09/20/23 Rocky Zepeda DO [address] [place] [address]0175 Physician Gastroenterology 09/20/23 Philip Dumont MD [address] [place] [address] 218315 Physician Ophthalmology 09/22/23 Meredith Carrera PA-C [address] [place] [address] 172165 Assigned Gastroenterology Provider 11/01/23 Neil Kent MD [address] [address] Dermatology 11/02/23 [place] [address] [facility] [place], [place] [phone] Neurological Surgery 12/26/23 Audrey Waite PA-C [address] [place] [address] Physician Ladle Handler Dermatology 02/28/24 Valery Veronica PA-C [address] [facility] [place] [address] Physician Ladle Handler Dermatology 04/10/24 Herminia Hatch MD [address] [place] [address] Assigned Rheumatology Provider 07/02/24 [place] [address] [place] [address] [place] [address] Ophthalmology 08/30/24 [place] [address] [place] [address] Assigned Neuroscience Provider 09/30/24 Maru Man PA-C [address] [place] [address] Physician Ladle Handler Dermatology 10/03/24 Maru Man PA-C [address] [place] [address] Physician Ladle Handler Dermatology 10/22/24 [place] [address] [place] [address] [place] [address] Assigned Surgical Provider 10/31/24 Fabiano Correa NP [address] [place] [address] Assigned Heart and Vascular Provider 11/30/24 documented as of this encounter
--- OUTSIDE RECORDS SUMMARY | 2024-12-31 03:13 | XMS_ITS | Encounter Summary ---
Author Organization [facility] Address [address] [place] [address] Care Team Providers Care Facility Assistant Name Role Phone Diana Desir [facility] Unavailable Rain GalavizC Unavailable Tavia Wyatt MD Unavailable [phone] Erica Farrell APRN PUNCHBOARD FILLING MACHINE OPERATOR Unavailable Rich Barrett MD Unavailable [phone] Neil Kent MD Unavailable ThangKendrickDiana Stanislav [facility] Unavailable Livan Sharif MD Unavailable Catherine Cm MD Unavailable + Valery Veronica-C Unavailable Brea Quinn APRN PUNCHBOARD FILLING MACHINE OPERATOR Unavailable Esha Grimm PA-C Primary Care Provider [phone] Jelena David OD Unavailable Esha Grimm PA-C Unavailable Valery Veronica PA-C Unavailable [phone] Rey Tay MD Unavailable DuaneRocky Unavailable Philip Dumont MD Unavailable [phone] Meredith Carrera PA-C Unavailable [phone] Neil Kent MD Unavailable Juan Pablo Emmanuel MD Unavailable [phone] Audrey Waite PA-C Unavailable [phone] Valery Veronica PA-C Unavailable [phone] Herminia Hatch MD Unavailable Jelena David OD Unavailable Juan Pablo Emmnauel MD Unavailable [phone] Maru Man-C Unavailable [phone] Maru Man-C Unavailable [phone] Jelena David OD Unavailable Fabiano Correa NP Unavailable [phone] Encounter Details Date Type Department Care Team (Latest Contact Info) Description 12/19/2024 Travel Social History Tobacco Use Types Packs/Day [...] you attend [facility] or congregational services? 1 to 4 [...] exercise at this level? 20 min 05/07/2024 [place] Depression Scale Answer Date Recorded [place] Depression Score 5 01/14/2021 Last EPDS [...] CDT Legal Sex Female 4:13 AM AUTOMATIC GLUING MACHINE OPERATOR Gender Identity Female 03/02/2021 5:45 PM CDT Sexual Orientation Straight 02/28/2020 12 :51 AM CDT documented as of this encounter Plan of Treatment Upcoming Encounters Date Type Department Care Team (Latest Contact Info) Description 01/02/2025 1:10 PM CDT Ancillary Procedure [address] [phone] Lauren Claudio PA-C [address] [place] [address] 01/17/2025 10:00 AM CDT Appointment [facility] Respiratory [facility] [place] [phone] Lauren Claudio PA-C [address] [place] [address] 04/16/2025 11:00 AM CDT Virtual Visit [facility] [place] [address] [facility] [address] 4th [place] [phone] Meredith Carrera PA-C [address] [place] [address] documented as of this encounter Visit Diagnoses Not on filedocumented in this encounter Additional Health Concerns Assessment Noted Time PHQ-9 Depression Total Score: 5 10/25/19 25 10:38 AM CDT documented as of this encounter Care Teams Facility Assistant Relationship Specialty Start Date End Date Esha Grimm PA-C [address] [place] [phone] PCP - General Family Medicine 05/04/23 Diana Desir, [facility] [address] [place] [address] Pharmacist Pharmacist 04/17/21 Rain Galaviz PA-C [address] [place] [address] [address] [place] [address] Physician Tire Finisher Dermatology 04/28/21 Tavia Wyatt MD [address] [place] [address] [address] [place] [address] Dermatology 07/14/21 Erica Farrell APRN PUNCHBOARD FILLING MACHINE OPERATOR [address] [place] [address] Nurse Practitioner Cardiovascular Disease 09/09/21 Rich Barrett MD [address] [place] [address] Physician Ophthalmology 01/21/22 Neil Kent MD 500 [place], [place] 8[address]125 Dermatology 02/24/22 Diana Desir, [facility] [address] [place] [address] Assigned [place] Pharmacist 04/07/22 Livan Sharif MD [address] [place], [place] 5[address] Cardiovascular Disease 05/14/22 Catherine Cm MD [address] [place], [place] [address] Cardiovascular Disease 07/21/22 Valery Veronica PA-C [address]09 [place], [place] 8120[address] Physician Tire Finisher Dermatology 07/21/22 Brea Quinn APRN PUNCHBOARD FILLING MACHINE OPERATOR [address] [place], [place] 9[address] Nurse Practitioner Dermatology 09/21/22 Jelena David OD [address] [place] [address] Ophthalmology 06/15/23 Esha Grimm PA-C [address] [place] [phone] Assigned PCP 07/16/23 Valery Veronica PA-C [address] [place] [address] Physician Tire Finisher Dermatology 09/19/23 Rey Tay MD [address] [place] [address] MD Gastroenterology 09/20/23 Rocky Zepeda DO [address] [place] [address] Physician Gastroenterology 09/20/23 Philip Dumont MD [address] [place] [address] Physician Ophthalmology 09/22/23 Meredith Carrera PA-C [address] [place] [address] Assigned Gastroenterology Provider 11/01/23 Neil Kent MD [address] [address] Dermatology 11/02/23 [place] [address] [place] [address] Neurological Surgery 12/26/23 Audrey Waite PA-C [address] [place] [address] 631505 Physician Tire Finisher Dermatology 02/28/24 Valery Veronica PA-C 289666 [address] [place] [address] Physician Tire Finisher Dermatology 04/10/24 Herminia Hatch MD [facility] [place], [place] [phone] Assigned Rheumatology Provider 07/02/24 Jelena David OD [address] [facility] [place] [address] Ophthalmology 08/30/24 [place] [address] [place] [address] Assigned Neuroscience Provider 09/30/24 Maru Man PA-C [address] [place] [address] Physician Tire Finisher Dermatology 10/03/24 Maru Man PA-C [address] [place] [address] Physician Tire Finisher Dermatology 10/22/24 Jelena David, S[facility] [address] [facility] [place] [address] Assigned Surgical Provider 10/31/24 Fabiano Correa NP [address] [place] 701025 Assigned Heart and Vascular Provider 11/30/24 documented as of this encounter
--- OUTSIDE RECORDS SUMMARY | 2024-12-31 03:13 | XMS_ITS | Encounter Summary ---
Author Organization [facility] Address [address] [place] [address] Care Team Providers Care Legislative Aide Name Role Phone Lita Oseguera Unavailable Unavailable Marija Edgar APRN GLASS FORMING CREW MEMBER Primary Care Provider + Chanelle Mccann APRN CNM Unavailab le Kyara De La Fuente RN Unavailable [phone] Marija Edgar APRN GLASS FORMING CREW MEMBER Unavailable Mynor Broussard MD Unavailable Keisha Dotson MD Unavailable Galo Burrell MD Unavailable Unavailable Cristina Wood Unavailable Diana Desir [facility] Unavailable Rain Galaviz PA-C Unavailable Summer Lara MD Unavailable [phone] Summer Lara MD Unavailable [phone] Summer Lara MD Unavailable [phone] Tavia Wyatt MD Unavailable Johnny Murillo MD Unavailable Erica Farrell APRN GLASS FORMING CREW MEMBER Unavailable VikasTeresita [facility] Unavailable Tavia Wyatt MD Unavailable Diana Desir [facility] Unavailable Rich Barrett MD Unavailable [phone] Neil Kent MD Unavailable Roney Story DP Unavailable Erica Farrell APRN GLASS FORMING CREW MEMBER Unavailable Diana Desir [facility] Unavailable Jelena David Unavailable Gaol Burrell MD Unavailable Unavailable Livan Sharif MD Unavailable Livan Sharif MD Unavailable Catherine Cm MD Unavailable + Valery Veronica-C Unavailable [phone] Catherine Cm MD Unavailable + Johnny Murillo MD Unavailable [phone] Brea Quinn TAPPER HELPER GLASS FORMING CREW MEMBER Unavailable [phone] Brea Quinn TAPPER HELPER GLASS FORMING CREW MEMBER Unavailable [phone] Jose Francisco Johnson MD Unavailable Livan Sharif MD Unavailable Catherine Cm MD Unavailable + Sydnie Martinez RN Unavailable Unavailable Alfonso Renteria MD Unavailable Esha Grimm PA-C Primary Care Provider Cheng Todd PA-C Unavailable Radha Lomeli TAPPER HELPER GLASS [employer]MING CREW MEMBER Unavailable Jelena David OD Unavailable [phone] Pao Joseph RN Unavailable Unavailable Esha Grimm PA-C Unavailable [phone] Valery Veronica PA-C Unavailable Rey Tay MD Unavailable Rocky Zepeda DO Unavailable Philip Dumont MD Unavailable Meredith Carrera PA-C Unavailable [phone] Neil Kent MD Unavailable Juan Pablo Emmanuel MD Unavailable Audrey Waite PA-C Unavailable JeremíasValery damon PA-C Unavailable Herminia Hatch MD Unavailable Jelena David OD Unavailable Juan Pablo Emmanuel MD Unavailable Maru Man PA-C Unavailable Maru Man PA-C Unavailable Jelena David OD Unavailable Fabiano Correa NP Unavailable Encounter Details Date Type Department Care Team (Late st Contact Info) Description 01/06/2021 Orders Only [facility] - Surgical Specialties Service Line [address] [place] [address] Saurabh Marcial MD [address] [facility] [address] [place] [address] Indication for care in labor [...] Answer Date Recorded PHQ-2 Score 3 09/29/2020 [facility] [place] [...] PM CDT Legal 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 Female 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 Gender Identity Female 03/02/2021 5:45 PM [...] Description 01/02/2025 1:10 PM CDT Ancillary Procedure [facility] [address] [place] [phone] Lauren Claudio PA-C [address] [place] [address] 01/17/2025 10:00 AM CDT Appointment [facility] Respiratory [address] [place] [phone] Lauren Claudio PA-C [address] [place] [address] 04/16/2025 11:00 AM CDT Virtual Visit [facility]ology [facility] [address] [place] [phone] Meredith Carrera PA-C [address] [place] [address] documented as of this encounter Results * Asymptomatic COVID-19 Virus (Coronavirus) by PCR (01/09/2021 10:44 AM CDT) COVID-19 Virus PCR to [facility] [place] - Source Nasopharyngeal 01/09/2021 10:45 AM CDT [facility] COVID-19 Virus PCR to [facility] - Result Test received-See reflex to IDDL test SARS CoV2 (COVID-19) Virus RT-PCR 01/09/2021 6:32 PM CDT [facility], [facility] Specimen from nasopharyngeal structure (specimen) 01/09/2021 10:44 AM CDT 01/09/2021 10:45 AM CDT us Saurabh Marcial MD LAB - MICRO GENERAL DONYA HERRERA Final Result [facility], [facility] [address] [place] [address], [place] [facility] [address] [place] [address], [facility] [phone] documented in this encounter Visit Diagnoses Diagnosis Indication for care in labor and delivery, antepartum- Primary Unspecified indication for care or intervention related to labor and delivery, antepartum documented in this encounter Additional Health Concerns Infection Onset Date Last Indicated Resolved Time Rule Out COVID-19 05/11/2021 05/11/2021 05/13/2021 10:18 AM CDT Rule Out COVID-19 07/13/2021 07/13/2021 07/14/2021 3:04 PM SACK SORTER Rule Out COVID-19 07/18/2021 07/18/2021 07/20/2021 1:56 PM SACK SORTER COVID-19 07/18/2021 07/18/2021 08/08/2021 11:3 9 PM SACK SORTER Rule Out COVID-19 12/18/2021 12/18/2021 12/19/2021 11:34 AM CDT Rule Out COVID-19 02/24/2022 02/24/2022 02/25/2022 1:08 PM CDT Rule Out COVID-19 04/26/2022 04/26/2022 04/26/2022 6:47 AM CDT Rule Out COVID-19 05/17/2022 05/17/2022 05/17/2022 10:20 PM SACK SORTER Rule Out COVID-19 06/09/2022 06/09/2022 06/09/2022 9:35 AM SACK SORTER COVID-19 06/09/2022 06/09/2022 06/30/2022 11:4 1 PM SACK SORTER Rule Out COVID-19 11/10/2022 11/10/2022 11/11/2022 [...] documented as of this encounter Care Teams Legislative Aide Relationship Specialty Start Date End Date Marija Edgar APRN GLASS [employer]MING CREW MEMBER PCP - General Nurse Practitioner 04/30/20 04/14/23 Esha Grimm PA-C [address] [place] [phone] PCP - General Family Medicine 05/04/23 Lita Oseguera Personal Advocate & Liaison (PAL) 02/28/20 03/27/23 Chanelle Mccann APRN CNM [address] [facility], [facility] [address] [place], [place] 072677 Assigned OBGYN Provider 05/02/2005/09 Kyara De La Fuente, RN Specialty Wholesale Diamond Broker Neurology 06/04/20 03/05/21 Marija Edgar APRN GLASS FORMING CREW MEMBER Assigned PCP 06/08/20 04/29/23 Mynor Broussard MD [address] [place] [address] [phone] Assigned Surgical Provider 06/01/20 11/28/21 Keisha Dotson MD [address] [place] [address] Assigned Neuroscience Provider 06/04/20 04/01/23 Galo Burrell MD Assigned Heart and Vascular Provider 10/05/20 04/02/22 Cristina Wood Financial Resource Worker 02/09/21 02/09/21 [facility] [address] [place] [address] Pharmacist Pharmacist 04/17/21 Rain Galaviz PA-C [address] [place] [address] [address] [place] [address] Physician Lunchroom Worker Dermatology 04/28/21 Summer Lara MD [address] [place] [address] [phone] Assigned OBGYN Provider 05/10/2105/23 Summer Lara MD [address] [place] [address] 325534 Assigned OBGYN Provider 05/31/21 2 Summer Lara MD [address] [place] [address] Assigned OBGYN Provider 05/24/2105/30 Tavia Wyatt MD [address] [place] [address] Dermatology 07/14/21 Johnny Murillo MD [facility] [place] [address] Assigned Musculoskeletal Provider 08/30/21 03/17/22 Erica Farrell APRN GLASS [employer]MING CREW MEMBER [address] [facility] [address] [place] [address] Nurse Practitioner Cardiovascular Disease 09/09/21 [facility] 14[address] [facility] [place], [place] [phone] Pharmacist Pharmacist 09/24/21 09/29/21 Tavia Wyatt MD [address] [place] [address] Assigned Surgical Provider 11/29/21 05/07/22 [facility] [address] [place] [address] Assigned MTM Pharmacist 01/02/22 Rich Barrett MD [address] [place] [address] Physician Ophthalmology 01/21/22 Neil Kent MD [address] [place] [address] Dermatology 02/24/22 Roney Story DPM [address] [facility] [address] [place] [address] Assigned Musculoskeletal Provider 03/20/22 08/13/22 Erica Farrell APRN GLASS FORMING CREW MEMBER [address] [place] [address] Assigned Heart and Vascular Provider 04/03/22 04/16/22 [facility] 3033 [place] [address] Assigned MTM Pharmacist 04/07/22 [place] [address] [facility] [address] Assigned Surgical Provider 05/08/22 10/08/22 Galo Burrell MD Assigned Heart and Vascular Provider 04/17/22 06/11/22 Livan Sharif MD [address] [place] [address] [place] [address] Cardiovascular Disease 05/14/22 Livan Sharif MD [address] [place] [address] [place] [address] Assigned Heart and Vascular Provider 06/12/22 07/23/22 Catherine Cm MD [address] [place] [address] [place] [address] Cardiovascular Disease 07/21/22 Valery Veronica PA-C [address] [place] [address] Physician Lunchroom Worker Dermatology 07/21/22 Catherine Cm MD [address] [facility]00 [place] [address] Assigned Heart and Vascular Provider 07/24/22 11/05/22 Johnny Murillo MD [facility] 859644 Assigned Musculoskeletal Provider 08/14/22 10/08/22 Brea Quinn APRN GLASS FORMING CREW MEMBER [address] [place] [address] 270395 Nurse Practitioner Dermatology 09/21/22 Brea Quinn APRN GLASS FORMING CREW MEMBER [address] [place] [address] 096642 Assigned Surgical Provider 10/09/22 05/01/24 [place] [address] 513807 Assigned Musculoskeletal Provider 10/09/22 05/01/24 Livan Sharif MD [address] [place] [address] [place] [phone] Assigned Heart and Vascular Provider 11/06/22 11/12/22 Catherine Cm MD [address] [place] [address] [place] [phone] Assigned Heart and Vascular Provider 11/13/22 05/27/23 Sydnie Martinez, VJ Personal Advocate & Liaison (PAL) Family Medicine 03/28/23 07/31/23 Alfonso Renteria MD [address] [facility] [address] [place] [address] Assigned Neuroscience Provider 04/02/23 09/29/24 Cheng Todd PA-C [address] [place] [address] [phone] Assigned PCP 04/30/23 07/15/23 Radha Lomeli APRN GLASS FORMING CREW MEMBER [address] [place] [phone] [place], [place] 911485 Assigned Heart and Vascular Provider 05/28/23 11/29/24 Jelena David OD [address] [facility] [address] [place] [phone] Ophthalmology 06/15/23 Pao Joseph RN Personal Advocate & Liaison (PAL) Nurse 08/01/23 11/07/23 Esha Grimm PA-C [address] [place] [phone] Assigned PCP 07/16/23 Valery Veronica PA-C [address] [place] [address] 427115 Physician Lunchroom Worker Dermatology 09/19/23 Rey Tay MD [address] [place] [address] 426185 MD Gastroenterology 09/20/23 Rocky Zepeda DO [address] [place] [address] 372095 Physician Gastroenterology 09/20/23 Philip Dumont MD [address] [place] [address] 591135 Physician Ophthalmology 09/22/23 Meredith Carrera PA-C [address] [place] [address] 889985 Assigned Gastroenterology Provider 11/01/23 Neil Kent MD [address] 087790 MD Dermatology 11/02/23 [place] [address] 988577 Neurological Surgery 12/26/23 Audrey Waite PA-C [address] [place] [address] 240425 Physician Lunchroom Worker Dermatology 02/28/24 Valery Veronica PA-C 253519 [place], [place] [address] Physician Lunchroom Worker Dermatology 04/10/24 Herminia Hatch MD [facility]5 [place] [address] Assigned Rheumatology Provider 07/02/24 Jelena David OD [address] [facility] [place] [address] Ophthalmology 08/30/24 [place] [address] [place] [address] Assigned Neuroscience Provider 09/30/24 Maru Man PA-C [address] [place] [address] Physician Lunchroom Worker Dermatology 10/03/24 Maru Man PA-C [address] [place] [address] Physician Lunchroom Worker Dermatology 10/22/24 Jelena David, SONJA [address] [facility] [address] Assigned Surgical Provider 10/31/24 Fabiano Correa, ASSOCIATE PROFESSOR OF ARCHAEOLOGY [address] [place] [address] Assigned Heart and Vascular Provider 11/30/24 documented as of this encounter
--- OUTSIDE RECORDS SUMMARY | 2024-12-31 03:13 | XMS_ITS | Encounter Summary ---
Author Organization [facility] Address [address] [place] [address] Care Team Providers Care Farm Management Agent Name Role Phone Diana Desir [facility] Unavailable Rain GalavizC Unavailable Tavia Wyatt MD Unavailable [phone] Erica Farrell APRN ORACLE FORMS DEVELOPER Unavailable Rich Barrett MD Unavailable [phone] Neil Kent MD Unavailable ThangKendrickDiana Stanislav [facility] Unavailable Livan Sharif MD Unavailable Catherine Cm MD Unavailable + Valery Veronica-C Unavailable Brea Quinn APRN ORACLE FORMS DEVELOPER Unavailable Esha Grimm PA-C Primary Care Provider Jelena David OD Unavailable [phone] Esha Grimm PA-C Unavailable [phone] Valery Veronica PA-C Unavailable Rey Tay MD Unavailable DuaneRocky Unavailable Philip Dumont MD Unavailable Meredith Carrera PA-C Unavailable Neil Kent MD Unavailable Juan Pablo Emmanuel MD Unavailable Audrey Waite PA-C Unavailable Valery Veronica PA-C Unavailable [phone] Herminia Hatch MD Unavailable Jelena David OD Unavailable Juan Pablo Emmanuel MD Unavailable [phone] Maru ManC Unavailable Maru ManC Unavailable Jelena David OD Unavailable Fabiano Correa NP Unavailable [phone] Encounter Details Date Type Department Care Team (Late st Contact Info) Description 12/28/2024 Results Follow-Up [facility] [address] [place] [phone] Esha Grimm PA-C [id number] [place] [address] Subj: Message about your results Social History [...] exercise at this level? 20 min 05/07/2024 [place] Depression Scale Answer Date Recorded [place] Depression Score 5 01/14/2021 Last EPDS Self [...] CDT Legal Sex Female 4:13 AM LITIGATION COUNSEL Gender Identity Female 03/02/2021 5:45 PM CDT Sexual Orientation Straight 02/28/2020 12 :51 AM CDT documented as of this encounter Plan of Treatment Upcoming Encounters Date Type Department Care Team (Latest Contact Info) Description 01/02/2025 1:10 PM CDT Ancillary Procedure [facility] [address] [place] [phone] Lauren Claudio PA-C [address] [place] [address] 01/17/2025 10:00 AM CDT Appointment [facility] Respiratory [address] [place] [phone] Lauren Claudio PA-C [address] [place], [place] [phone] 04/16/2025 11:00 AM CDT Virtual Visit [facility] Gastroenterology Clinic [address] 4th [place] [phone] Meredith Carrera PA-C [address] [place] [address] documented as of this encounter Visit Diagnoses Not on filedocumented in this encounter Additional Health Concerns Assessment Noted Time PHQ-9 Depression Total Score: 5 10/25/19 25 10:38 AM CDT documented as of this encounter Care Teams Farm Management Agent Relationship Specialty Start Date End Date Esha Grimm PA-C [address] [place] [phone] PCP - General Family Medicine 05/04/23 Diana Desir, [facility]3 [place] [address] Pharmacist Pharmacist 04/17/21 Rain Galaviz PA-C [address] [place] [address] [address] [place] [address] Physician Photograph Mounter Dermatology 04/28/21 Tavia Wyatt MD [address] [place] [address] [address] [place] [address] Dermatology 07/14/21 Erica Farrell APRN ORACLE FORMS DEVELOPER [address] [facility] [address] [place], [place] 970765 Nurse Practitioner Cardiovascular Disease 09/09/21 Rich Barrett MD [address] [place], [place] 878805 Physician Ophthalmology 01/21/22 Neil Kent MD 500 [place], [place] 585875 Dermatology 02/24/22 Diana Desir, [facility] [address]33 [place], [place] 344836 Assigned [facility] Pharmacist 04/07/22 Livan Sharif MD [address] [address] Cardiovascular Disease 05/14/22 Catherine Cm MD [address] [phone] Cardiovascular Disease 07/21/22 Valery Veronica, PA-C [address] [place] [address] 241695 Physician Photograph Mounter Dermatology 07/21/22 Brea Quinn APRN ORACLE FORMS DEVELOPER 500 [place], [place] [address] Nurse Practitioner Dermatology 09/21/22 Jelena David OD [address] [facility] [place] [address] MD Ophthalmology 06/15/23 Esha Grimm PA-C [address] [place] [phone] Assigned PCP 07/16/23 Valery Veronica PA-C [address] [place] [address] 980685 Physician Photograph Mounter Dermatology 09/19/23 Rey Tay MD [address] [place] [address] 121765 MD Gastroenterology 09/20/23 Rocky Zepeda DO [address] [place] [address] 619485 Physician Gastroenterology 09/20/23 Philip Dumont MD [address] [place] [address] 994965 Physician Ophthalmology 09/22/23 Meredith Carrera PA-C [address] [place] [address] 424105 Assigned Gastroenterology Provider 11/01/23 Neil Kent MD [address] [place] [address] Dermatology 11/02/23 [place] [address] [place] [address] Neurological Surgery 12/26/23 Audrey Wiate PA-C 500 [place] [address] Physician Photograph Mounter Dermatology 02/28/24 Valery Veronica PA-C 670022 [facility] [address] Physician Photograph Mounter Dermatology 04/10/24 Herminia Hatch MD [address] [place] [address] Assigned Rheumatology Provider 07/02/24 Jelena David OD [address] [place] [address] [place] [address] Ophthalmology 08/30/24 [place] [address] [place] [address] Assigned Neuroscience Provider 09/30/24 Maru Man PA-C [address] [place] [address] Physician Photograph Mounter Dermatology 10/03/24 Maru Man PA-C [address] [place] [address] Physician Photograph Mounter Dermatology 10/22/24 Jelena David OD [address] [place] [address] [place] [address] Assigned Surgical Provider 10/31/24 Fabiano Correa NP [address] [facility] [place] [address] Assigned Heart and Vascular Provider 11/30/24 documented as of this encounter
--- OUTSIDE RECORDS SUMMARY | 2024-12-31 03:13 | XMS_ITS | Encounter Summary ---
Author Organization [place] Address [address] [place] [address] Care Team Providers Care Reservoir Engineering Manager Name Role Phone Diana Desir [facility] Unavailable Rain GalavizC Unavailable Tavia Wyatt MD Unavailable [phone] Erica Farrell APRN REFRIGERATION SPECIALIST Unavailable Rich Barrett MD Unavailable [phone] Neil Kent MD Unavailable ThangKendrickDiana Stanislav [facility] Unavailable Livan Sharif MD Unavailable Catherine Cm MD Unavailable + Valery Veronica-C Unavailable Brea Quinn APRN REFRIGERATION SPECIALIST Unavailable Esha Grimm PA-C Primary Care Provider Jelena David OD Unavailable Esha Grimm PA-C Unavailable Valery Veronica PA-C Unavailable [phone] Rey Tay MD Unavailable DuaneRocky Unavailable Philip Dumont MD Unavailable Nhung Carrera PA-C Unavailable [phone] Neil Kent MD Unavailable Juan Pablo Emmanuel MD Unavailable Audrey Waite PA-C Unavailable [phone] Valery Veronica PA-C Unavailable Herminia Hatch MD Unavailable Jelena David OD Unavailable [phone] Juan Pablo Emmanuel MD Unavailable Maru Man PA-C Unavailable [phone] Maru Man PA-C Unavailable [phone] Jelena David OD Unavailable [phone] Fabiano Correa NP Unavailable [phone] Reason for Visit * Reason Onset Date Comments Clinic Care Coordination - Initial 12/21/2024 Triage GI SX Encounter Details Date Type Department Care Team (Late st Contact Info) Description 12/21/[address] [address] Betzy Jolly, [facility] Care Coordination - Initial (Triage GI SX ) Social History Tobacco Use Types Packs/Day [...] Answer Date Recorded PHQ-2 Score 1 10/24/2024 [facility]ational Stress Questionnaire [...] exercise at this level? 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 Gender Identity Female 03/02/2021 5:45 PM CDT Sexual Orientation Straight 02/28/2020 12 :51 AM CDT documented as of this encounter Miscellaneous Notes * Telephone Encounter - Betzy Jolly RN - 12/21/2024 9:11 AM CDT Hotel [employer] received a staff message to reach out to patient on behalf of nhung Carrera Lets triage thedefecatory symptoms Okay for general GI follow up Hotel Associate left message for patient with direct call back to creative writer Thank you, MILLA Velarde RN [facility] Gastroenterology documented in this encounter Plan of Treatment Upcoming Encounters Date Type Department Care Team (Latest Contact Info) Description 01/02/2025 1:[address] [facility] [address] [place] [phone] Lauren Claudio PA-C [address] [place], [place] [phone] 01/17/2025 10:00 AM CDT Appointment [facility] [address] [place] [phone] Lauren Claudio PA-C [address] [place], [place] [phone] 04/16/2025 11:00 AM CDT Virtual Visit [facility] Gastroenterology Clinic [address] [phone] Nhung Carrera PA-C [address] [place] [address] documented as of this encounter Visit Diagnoses Not on filedocumented in this encounter Additional Health Concerns Assessment Noted Time PHQ-9 Depression Total Score: 5 10/25/19 25 10:38 AM CDT documented as of this encounter Care Teams Reservoir Engineering Manager Relationship Specialty Start Date End Date Esha Grimm PA-C [id number] [place] [phone] PCP - General Family Medicine 05/04/23 Diana Desir, [facility] 30[address] [place] [address] Pharmacist Pharmacist 04/17/21 Rain Galaviz PA-C [address] [place] [address] [place] [address] Physician Supply Coordinator Dermatology 04/28/21 Tavia Wyatt MD [address] [place] [address] [address] [place] [address] Dermatology 07/14/21 Erica Farrell APRN REFRIGERATION SPECIALIST [address] [place] [address] Nurse Practitioner Cardiovascular Disease 09/09/21 Rich Barrett MD [address] [place] 136[address] Physician Ophthalmology 01/21/22 Neil Kent MD [address] [place] [address] 875085 Dermatology 02/24/22 [facility] [address] [place] [address] Assigned [facility] Pharmacist 04/07/22 Livan Sharif MD [address] [place] [address] Cardiovascular Disease 05/14/22 Catherine Cm MD [address] [place] 944075 Cardiovascular Disease 07/21/22 Valery Veronica, PA-C [address] [place] [address] 900545 Physician Supply Coordinator Dermatology 07/21/22 Brea Quinn APRN CNP [address] [place] [address] 758055 Nurse Practitioner Dermatology 09/21/22 Jelena David OD [address] [place] [address] [place] [id number] MD Ophthalmology 06/15/23 sEha Grimm PA-C [address] [place] [address] Assigned PCP 07/16/23 Valery Veronica PA-C [address] [place] [address] 531935 Physician Supply Coordinator Dermatology 09/19/23 Rey Tay MD [address] [place] [address] 936325 Gastroenterology 09/20/23 Rocky Zepeda DO [address] [place] [address] 978605 Physician Gastroenterology 09/20/23 Philip Dumont MD [address] [place] [address] 884655 Physician Ophthalmology 09/22/23 Nhung Carrera PA-C [address] [place] [address] 953445 Assigned Gastroenterology Provider 11/01/23 Neil Kent MD [address] [place] [address] Dermatology 11/02/23 [place] [address] [place] [address] Neurological Surgery 12/26/23 Audrey Waite PA-C 500 [place] [address] Physician Supply Coordinator Dermatology 02/28/24 Valery Veronica PA-C 579257 [address] [address] Physician Supply Coordinator Dermatology 04/10/24 Herminia Hatch MD [address] [place] [address] Assigned Rheumatology Provider 07/02/24 Jelena David OD [address] [place] [address] [place] [address] Ophthalmology 08/30/24 [place] [address] [place] [address] Assigned Neuroscience Provider 09/30/24 Maru Man PA-C [address] [place] [address] Physician Supply Coordinator Dermatology 10/03/24 Maru Man PA-C [address] [place] [address] Physician Supply Coordinator Dermatology 10/22/24 Jelena David OD [address] [facility] [place] [address] Assigned Surgical Provider 10/31/24 Fabiano Correa NP [address] [place] [address] Assigned Heart and Vascular Provider 11/30/24 documented as of this encounter
--- OUTSIDE RECORDS SUMMARY | 2024-12-31 03:13 | XMS_ITS | Encounter Summary ---
Author Organization [facility] Address [address] [place] [address] Care Team Providers Care Supply Chain Development Manager Name Role Phone Diana Desir [facility] Unavailable Rain GalavizC Unavailable Tavia Wyatt MD Unavailable [phone] Erica Farrell APRN EXTERMINATOR Unavailable Rich Barrett MD Unavailable [phone] Neil Kent MD Unavailable ThangKendrickDiana Stanislav [facility] Unavailable Livan Sharif MD Unavailable Catherine Cm MD Unavailable + Valery Veronica-C Unavailable Brea Quinn APRN EXTERMINATOR Unavailable Esha Grimm PA-C Primary Care Provider [phone] Jelena David OD Unavailable Esha Grimm PA-C Unavailable Valery Veronica PA-C Unavailable Rey Tay MD Unavailable DuaneRocky Unavailable Philip Dumont MD Unavailable [phone] Meredith Carrera PA-C Unavailable [phone] Neil Kent MD Unavailable Juan Pablo Emmanuel MD Unavailable Audrey Waite PA-C Unavailable [phone] Valery Veronica PA-C Unavailable eHrminia Hatch MD Unavailable Jelena David OD Unavailable Juan Pablo Emmanuel MD Unavailable [phone] Maru Man-C Unavailable [phone] Maru Man-C Unavailable [phone] Jelena David OD Unavailable Fabiano Correa NP Unavailable [phone] Encounter Details Date Type Department Care Team (Latest Contact Info) Description 12/28/2024 Travel Social History Tobacco Use Types Packs/Day [...] attend [facility] or jehovah's witness services? 1 to 4 [...] Answer Date Recorded PHQ-2 Score 1 10/24/2024 [facility] - [...] exercise at this level? 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 Gender Identity Female 03/02/2021 5:45 PM CDT Sexual Orientation Straight 02/28/2020 12 :51 AM CDT documented as of this encounter Plan of Treatment Upcoming Encounters Date Type Department Care Team (Latest Contact Info) Description 01/02/2025 1:10 PM CDT Ancillary Procedure [address] [phone] Lauren Claudio PA-C [address] [place] [address] 01/17/2025 10:00 AM CDT Appointment [facility] Respiratory [facility] [place] [phone] Lauren Claudio PA-C [address] [place] [address] 04/16/2025 11:00 AM CDT Virtual Visit [facility] [place] [address] [facility] SE 4th [place] [phone] Meredith Carrera PA-C [address] [place] [address] documented as of this encounter Visit Diagnoses Not on filedocumented in this encounter Additional Health Concerns Assessment Noted Time PHQ-9 Depression Total Score: 5 10/25/19 25 10:38 AM CDT documented as of this encounter Care Teams Supply Chain Development Manager Relationship Specialty Start Date End Date Esha Grimm PA-C [address] [place] [phone] PCP - General Family Medicine 05/04/23 Diana Desir, [facility] [address] [place] [address] Pharmacist Pharmacist 04/17/21 Rain Galaviz PA-C [address] [place] [address] [address] [place] [address] Physician Oil Dispatcher Dermatology 04/28/21 Tavia Wyatt MD [address] [place] [address] [address] [place] [address] Dermatology 07/14/21 Erica Farrell APRN EXTERMINATOR [address] [place] 379865 Nurse Practitioner Cardiovascular Disease 09/09/21 Rich Barrett MD [address] [place] 724025 Physician Ophthalmology 01/21/22 Neil Kent MD 500 [place], [place] 131155 Dermatology 02/24/22 Diana Desir, [facility] [address] [place] [address] Assigned [place] Pharmacist 04/07/22 Livan Sharif MD [address] [place], [place] 462845 Cardiovascular Disease 05/14/22 Catherine Cm MD [address] [place], [place] 402585 Cardiovascular Disease 07/21/22 Valery Veronica PA-C 909 [place], [place] 947345 Physician Oil Dispatcher Dermatology 07/21/22 Brea Quinn APRN EXTERMINATOR 500 [place], [place] 381015 Nurse Practitioner Dermatology 09/21/22 Jelena David OD [address] [facility] [place] [address] Ophthalmology 06/15/23 Esha Grimm PA-C [address] [place] [address]-629083 Assigned PCP 07/16/23 Valery Veronica PA-C [address] [place] [address] Physician Oil Dispatcher Dermatology 09/19/23 Rey Tay MD [address] [place] [address] MD Gastroenterology 09/20/23 Rocky Zepeda DO [address] [place] [address] Physician Gastroenterology 09/20/23 Philip Dumont MD [address] [place] [address] Physician Ophthalmology 09/22/23 Meredith Carrera PA-C [address] [place] [address] Assigned Gastroenterology Provider 11/01/23 Neil Kent MD [address] [address] Dermatology 11/02/23 [place] [address] [place] [address] Neurological Surgery 12/26/23 Audrey Waite PA-C [address] [place] [address] 881845 Physician Oil Dispatcher Dermatology 02/28/24 Valery Veronica PA-C [address]84 [address] [place] [address] Physician Oil Dispatcher Dermatology 04/10/24 Herminia Hatch MD [facility] [place], [place] 04566125 Assigned Rheumatology Provider 07/02/24 Jelena David OD [address] [facility] [place] [address] Ophthalmology 08/30/24 [place] [address] [place] [address] Assigned Neuroscience Provider 09/30/24 Maru Man PA-C [address] [place] [address] Physician Oil Dispatcher Dermatology 10/03/24 Maru Man PA-C [address] [place] [address] Physician Oil Dispatcher Dermatology 10/22/24 Jelena David, SONJA [address] [facility] [place] [address] Assigned Surgical Provider 10/31/24 Fabiano Correa NP [address] [place] 920145 Assigned Heart and Vascular Provider 11/30/24 documented as of this encounter
--- OUTSIDE RECORDS SUMMARY | 2024-12-31 03:13 | XMS_ITS | Encounter Summary ---
Author Organization [facility] Address [address] [place] [address] Care Team Providers Care Durable Medical Equipment Technician Name Role Phone Diana Desir [facility] Unavailable Rain GalavizC Unavailable Tavia Wyatt MD Unavailable [phone] Erica Farrell APRN TEST ADMINISTRATOR Unavailable Rich Barrett MD Unavailable [phone] Neil Kent MD Unavailable ThangKendrickDiana Stanislav [facility] Unavailable Livan Sharif MD Unavailable Catherine Cm MD Unavailable + Valery Veronica-C Unavailable Brea Quinn APRN TEST ADMINISTRATOR Unavailable Esha Grimm PA-C Primary Care Provider Jelena David OD Unavailable Esha Grimm PA-C Unavailable [phone] Valery Veronica PA-C Unavailable Rey Tay MD Unavailable DuaneRocky Unavailable Philip Dumont MD Unavailable [phone] Meredith Carrera PA-C Unavailable [phone] Neil Kent MD Unavailable Juan Pablo Emmanuel MD Unavailable Audrey Waite PA-C Unavailable [phone] Valery Veronica PA-C Unavailable Herminia Hatch MD Unavailable Jelena David OD Unavailable Juan Pablo Emmanuel MD Unavailable [phone] Maru Man-C Unavailable [phone] Maru Man-C Unavailable [phone] Jelena David OD Unavailable [phone] Fabiano Correa NP Unavailable [phone] Encounter Details Date Type Department Care Team (Late st Contact Info) Description 12/24/2024 [facility] [address] [phone] [facility] Social History Tobacco Use Types [...] often do you attend [facility] or orthodox services? 1 to 4 [...] Date Recorded PHQ-2 Score 1 10/24/2024 [facility] [...] at this level? 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 Gender Identity Female 03/02/2021 5:45 PM CDT Sexual Orientation Straight 02/28/2020 12 :51 AM CDT documented as of this encounter Plan of Treatment Upcoming Encounters Date Type Department Care Team (Latest Contact Info) Description 01/02/2025 1:10 PM CDT Ancillary Procedure [facility] [address] [place] [phone] Lauren Claudio PA-C [address] [place], [place] [phone] 01/17/2025 10:00 AM CDT Appointment [facility] Respiratory [address] [place] [phone] Lauren Claudio PA-C [address] [place] [address] 04/16/2025 11:00 AM CDT Virtual Visit [facility] Gastroenterology Clinic [address] 4th [place] [phone] Meredith Carrera PA-C [address] [place] [address] documented as of this encounter Visit Diagnoses Not on filedocumented in this encounter Additional Health Concerns Assessment Noted Time PHQ-9 Depression Total Score: 5 10/25/19 25 10:38 AM CDT documented as of this encounter Care Teams Durable Medical Equipment Technician Relationship Specialty Start Date End Date Esha Grimm PA-C [address] [place] [phone] PCP - General Family Medicine 05/04/23 Diana Desir, [facility] [address] [place] [address] Pharmacist Pharmacist 04/17/21 Rain Galaviz PA-C [address] [place] [address] [address] [place] [address] Physician Compounding Pharmacy Technician Dermatology 04/28/21 Tavia Wyatt MD [address] [place] [address] [address] [place] [address] Dermatology 07/14/21 Erica Farrell APRN TEST ADMINISTRATOR [address] [facility] [address] [place] [address] Nurse Practitioner Cardiovascular Disease 09/09/21 Rich Barrett MD [address] [place], [place] 301805 Physician Ophthalmology 01/21/22 Neil Kent MD 500 [place] [address] Dermatology 02/24/22 [facility] 3033 [place] [address] [facility] Pharmacist 04/07/22 Livan Sharif MD [address] [place] [address] Cardiovascular Disease 05/14/22 Catherine Cm MD [address] [place], [place] 858925 Cardiovascular Disease 07/21/22 Valery Veronica PA-C 909 [place] [address] Physician Compounding Pharmacy Technician Dermatology 07/21/22 Brea Quinn APRN TEST ADMINISTRATOR 500 [place] [address] Nurse Practitioner Dermatology 09/21/22 Jelena David OD [address] [place] [address] Ophthalmology 06/15/23 Esha Grimm PA-C [address] [place] [phone] Assigned PCP 07/16/23 Valery Veronica PA-C [address] [place] [address] Physician Compounding Pharmacy Technician Dermatology 09/19/23 Rey Tay MD [address] [place] [address] MD Gastroenterology 09/20/23 Rocky Zepeda DO [address] [place] [address] 620255 Physician Gastroenterology 09/20/23 Philip Dumont MD [address] [place] [address] 179765 Physician Ophthalmology 09/22/23 Meredith Carrera PA-C [address] [place] [address] 634145 Assigned Gastroenterology Provider 11/01/23 Neil Kent MD [address] [address] Dermatology 11/02/23 [place] [address] [facility] [place] [address] Neurological Surgery 12/26/23 Audrey Waite PA-C [address] [place] [address] Physician Compounding Pharmacy Technician Dermatology 02/28/24 Valery Veronica PA-C [address] [place] [address] Physician Compounding Pharmacy Technician Dermatology 04/10/24 Herminia Hatch MD [address] [place] [address] Assigned Rheumatology Provider 07/02/24 Jelena David OD [address] [place] [address] [place] [address] Ophthalmology 08/30/24 [place] [address] [place] [address] Assigned Neuroscience Provider 09/30/24 Maru Man PA-C [address] [place] [address] Physician Compounding Pharmacy Technician Dermatology 10/03/24 Maru Man PA-C [address] [place] [address] Physician Compounding Pharmacy Technician Dermatology 10/22/24 Jelena David OD [address] [place] [address] [place] [address] Assigned Surgical Provider 10/31/24 Fabiano Correa NP [address] [place] [address] Assigned Heart and Vascular Provider 11/30/24 documented as of this encounter
--- OUTSIDE RECORDS SUMMARY | 2024-12-31 03:13 | XMS_ITS | Encounter Summary ---
Author Organization [place] Address [address] [place] [address] Care Team Providers Care Box Truck Owner Operator Name Role Phone Diana Desir [facility] Unavailable Rain GalavizC Unavailable [phone] Tavia Wyatt MD Unavailable [phone] Erica Farrell APRN IRONWORKER FOREMAN Unavailable Rich Barrett MD Unavailable [phone] Neil Kent MD Unavailable ThangKendrickDiana Stanislav [facility] Unavailable [phone] Livan Sharif MD Unavailable Catherine Cm MD Unavailable + Valery Veronica-C Unavailable [phone] Brea Quinn APRN IRONWORKER FOREMAN Unavailable Esha Grimm PA-C Primary Care Provider [phone] Jelena David OD Unavailable Esha Grimm PA-C Unavailable [phone] Valery Veronica PA-C Unavailable [phone] Rey Tay MD Unavailable DuaneRocky Unavailable Philip [...] Visit * Reason Onset Date Comments Orders 12/27/2024 Encounter Details Date Type Department Care Team (Late st Contact Info) Description 12/27/2024 Telephone [facility] [id number] [place] [phone] Esha Grimm PA-C [id number] [place] [phone] Orders Social History Tobacco Use Types Packs/Day Years [...] Answer Date Recorded PHQ-2 Score 1 10/24/2024 [facility]at ional [...] exercise at this level? 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 Had patient walkme through what error message she is getting when she attempts to submit evisit, evisit is now working and she will proceed with submission. Advised patient to call back with any further concerns. Claudia Dupont RN on 12/27/2024 at 9:43 AM documented in this encounter Plan of Treatment Upcoming Encounters Date Type Department Care Team (Latest Contact Info) Description 01/02/2025 1:10 PM CDT Ancillary Procedure [facility] [address] [place] [phone] Lauren Claudio PA-C [address] [place], [place] [phone] 01/17/2025 10:00 AM CDT Appointment [place] [address] [place] [phone] Lauren Claudio PA-C [address] [place], [place] [phone] 04/16/2025 11:00 AM CDT Virtual Visit [facility] [address] [phone] Meredith Carrera PA-C [address] [place] [address] [phone] documented as of this encounter Visit Diagnoses Not on filedocumented in this encounter Additional Health Concerns Assessment Noted Time PHQ-9 Depression Total Score: 5 10/25/19 25 10:38 AM CDT documented as of this encounter Care Teams Box Truck Owner Operator Relationship Specialty Start Date End Date Esha Grimm PA-C [id number] [place] [phone] PCP - General Family Medicine 05/04/23 Diana Desir, [facility] [address] [place], [place] [address] Pharmacist Pharmacist 04/17/21 Rain Galaviz PA-C [address] [place] [address] [address] [place] [address] Physician Financial Project Manager Dermatology 04/28/21 Tavia Wyatt MD [address] [place] [address] [address] [place] [address] Dermatology 07/14/21 Erica Farrell APRN IRONWORKER FOREMAN [address] [place] 245695 Nurse Practitioner Cardiovascular Disease 09/09/21 Rich Barrett MD [address] [place] 416315 Physician Ophthalmology 01/21/22 Neil Kent MD 500 [place], [place] 206205 Dermatology 02/24/22 Diana Desir, [facility] [address] [place], [place] 111696 Assigned MTM Pharmacist 04/07/22 Livan Sharif MD [address] [place] [phone] Cardiovascular Disease 05/14/22 Catherine Cm MD [address] [place] 268635 Cardiovascular Disease 07/21/22 Valery Veronica PA-C [address] [place] [address] 160895 Physician Financial Project Manager Dermatology 07/21/22 Brea Quinn APRN CNP [address] [place] [address] 843985 Nurse Practitioner Dermatology 09/21/22 Jelena David OD [address] [place] [address] MD Ophthalmology 06/15/23 Esha Grimm PA-C [address] [place] [phone] Assigned PCP 07/16/23 Valery Veronica PA-C [address] [place] [address] 776915 Physician Financial Project Manager Dermatology 09/19/23 Rey Tay MD [address] [place] [address] 536235 MD Gastroenterology 09/20/23 Rocky Zepeda DO [address] [place] [address] 277345 Physician Gastroenterology 09/20/23 Philip Dumont MD [address] [place] [address] 680525 Physician Ophthalmology 09/22/23 Meredith Carrera PA-C [address] [place] [address] [phone] Assigned Gastroenterology Provider 11/01/23 Neil Kent MD [address] [place] [address] Dermatology 11/02/23 [place] [address] [place] [address] Neurological Surgery 12/26/23 Audrey Waite PA-C [address] [place] [address] Physician Financial Project Manager Dermatology 02/28/24 Valery Veronica PA-C [address] [place] [address] Physician Financial Project Manager Dermatology 04/10/24 Hemrinia Hatch MD [address] [place] [address] [phone] Assigned Rheumatology Provider 07/02/24 Jelena David OD [address] [place] [address] [place] [address] Ophthalmology 08/30/24 [place] [address] [place] [address] Assigned Neuroscience Provider 09/30/24 Maru Man PA-C [address] [place] [address] Physician Financial Project Manager Dermatology 10/03/24 Maru Man PA-C [address] [place] [address] Physician Financial Project Manager Dermatology 10/22/24 Jelena David OD [address] [facility] [place] [address] Assigned Surgical Provider 10/31/24 Fabiano Correa NP [address] [place] [place] [address] Assigned Heart and Vascular Provider 11/30/24 documented as of this encounter
--- OUTSIDE RECORDS SUMMARY | 2024-12-31 03:13 | XMS_ITS | Encounter Summary ---
Author Organization [place] Address [address] [place] [address] Care Team Providers Care Scissors Sharpener Name Role Phone Lita Oseguera Unavailable Unavailable Marija Edgar APRN WATCH CASER Primary Care Provider + Chanelle Mccann APRN CNM Unavailab le Kyara De La Fuente RN Unavailable [phone] Marija Edgar APRN WATCH CASER Unavailable Mynor Broussard MD Unavailable [phone] Keisha Dotson MD Unavailable [phone] Galo Burrell MD Unavailable Unavailable Cristina Wood Unavailable Diana Desir [facility] Unavailable Rain Galaviz PA-C Unavailable [phone] Summer Lara MD Unavailable [phone] Summer Lara MD Unavailable [phone] Summer Lara MD Unavailable [phone] Tavia Wyatt MD Unavailable Johnny Murillo MD Unavailable Erica Farrell APRN WATCH CASER Unavailable VikasTeresita [facility] Unavailable Tavia Wyatt MD Unavailable Diana Desir [facility] Unavailable Rich Barrett MD Unavailable [phone] Neil Kent MD Unavailable Roney Story DP Unavailable Erica Farrell APRN WATCH CASER Unavailable Diana Desir [facility] Unavailable Jelena David Unavailable Galo Burrell MD Unavailable Unavailable Livan Sharif MD Unavailable Livan Sharif MD Unavailable Catherine Cm MD Unavailable + Valery Veronica-C Unavailable [phone] Catherine Cm MD Unavailable + Johnny Murillo MD Unavailable [phone] Brea Quinn FUND MANAGER WATCH CASER Unavailable [phone] Brea Quinn FUND MANAGER WATCH CASER Unavailable [phone] Jose Francisco Johnson MD Unavailable Livan Sharif MD Unavailable Catherine Cm MD Unavailable + Sydnie Martinez RN Unavailable Unavailable Alfonso Renteria MD Unavailable Esha Grimm PA-C Primary Care Provider Cheng Todd PA-C Unavailable Radha Lomeli FUND MANAGER WATCH CASER Unavailable Jelena David OD Unavailable [phone] Pao Joseph RN Unavailable Unavailable AlfaJesusEsha M PA-C Unavailable [phone] Valery Veronica PA-C Unavailable Rey Tay MD Unavailable Rocky Zepeda DO Unavailable Philip Dumont MD Unavailable Meredith Carrera PA-C Unavailable [phone] Neil Kent MD Unavailable Juan Pablo [...] Info) Description 01/02/2021 MyC Medical Advice [address] [phone] Kierra Eller Social History Tobacco [...] week 08/07/2020 How often do you attend [facility] or congregational services? More than 4 times [...] Answer Date Recorded PHQ-2 Score 3 09/29/2020 [facility] [...] PM CDT Legal Sex Female 4:13 AM MASONRY CONTRACTOR ADMINISTRATOR Gender Identity Female 03/02/2021 5:45 PM [...] Description 01/02/2025 1:10 PM CDT Ancillary Procedure [facility] [address] [place] [phone] Lauren Claudio PA-C [address] [place] [address] 01/17/2025 10:00 AM CDT Appointment [facility] [address] [place] [phone] Lauren Claudio PA-C [address] [place] [address] 04/16/2025 11:00 AM CDT Virtual Visit [facility] [address] [place] [phone] Meredith Carrera PA-C [address] [place] [address] documented as of this encounter Visit Diagnoses Not on filedocumented in this encounter Additional Health Concerns Infection Onset Date Last Indicated Resolved Time Rule Out COVID-19 05/11/2021 05/11/2021 05/13/2021 10:18 AM CDT Rule Out COVID-19 07/13/2021 07/13/2021 07/14/2021 3:04 PM MASONRY CONTRACTOR ADMINISTRATOR Rule Out COVID-19 07/18/2021 07/18/2021 07/20/2021 1:56 PM MASONRY CONTRACTOR ADMINISTRATOR COVID-19 07/18/2021 07/18/2021 08/08/2021 11:3 9 PM MASONRY CONTRACTOR ADMINISTRATOR Rule Out COVID-19 12/18/2021 12/18/2021 12/19/2021 11:34 AM CDT Rule Out COVID-19 02/24/2022 02/24/2022 02/25/2022 1:08 PM CDT Rule Out COVID-19 04/26/2022 04/26/2022 04/26/2022 6:47 AM CDT Rule Out COVID-19 05/17/2022 05/17/2022 05/17/2022 10:20 PM MASONRY CONTRACTOR ADMINISTRATOR Rule Out COVID-19 06/09/2022 06/09/2022 06/09/2022 9:35 AM MASONRY CONTRACTOR ADMINISTRATOR COVID-19 06/09/2022 06/09/2022 06/30/2022 11:4 1 PM MASONRY CONTRACTOR ADMINISTRATOR Rule Out COVID-19 11/10/2022 11/10/2022 11/11/2022 [...] documented as of this encounter Care Teams Scissors Sharpener Relationship Specialty Start Date End Date Marija Edgar APRN CNP PCP - General Nurse Practitioner 04/30/20 04/14/23 Esha Grimm PA-C [address] [place] [phone] PCP - General Family Medicine 05/04/23 Lita Oseguera Personal Advocate & Liaison (PAL) 02/28/20 03/27/23 Chanelle Mccann APRN CNM [address]27 [facility] 200 [place] [address] Assigned OBGYN Provider 05/02/2005/09 Kyara De La Fuente, RN Specialty Special Services Director Neurology 06/04/20 03/05/21 Marija Edgar APRN WATCH CASER Assigned PCP 06/08/20 04/29/23 Mynor Broussard MD [address] [facility] 500 [place], [place] 122155 Assigned Surgical Provider 06/01/20 11/28/21 Keisha Dotson MD [address] [place], [place] 046[address] Assigned Neuroscience Provider 06/04/20 04/01/23 Galo Burrell MD Assigned Heart and Vascular Provider 10/05/20 04/02/22 Cristina Wood Financial Resource Worker 02/09/21 02/09/21 Diana Desir, [facility] [address] [place] [address] Pharmacist Pharmacist 04/17/21 Rain Galaviz PA-C [address] [facility] [address] [place] [address] Physician Room Service Supervisor Dermatology 04/28/21 Summer Lara MD [address] [place] [address] Assigned OBGYN Provider 05/10/2105/23 Summer Lara MD [address] [place] [address] Assigned OBGYN Provider 05/31/21 Summer Lara MD [address] [place], [place] [address] Assigned OBGYN Provider 05/24/2105/30 Tavia Wyatt MD [address] [place] [address] Dermatology 07/14/21 Johnny Murillo MD [address] [place] [address] Assigned Musculoskeletal Provider 08/30/21 03/17/22 Erica Farrell APRN WATCH CASER [address] [facility] [address] [place] [address] Nurse Practitioner Cardiovascular Disease 09/09/21 Teresita Bean [facility] [address] [phone] Pharmacist Pharmacist 09/24/21 09/29/21 Tavia Wyatt MD [facility] [place], [place] 582350 Assigned Surgical Provider 11/29/21 05/07/22 Diana Desir, [facility] 3033 [place] [address] Assigned MTM Pharmacist 01/02/22 Rich Barrett MD [address] [place] [address] Physician Ophthalmology 01/21/22 Neil Kent MD 500 [place], [place] 001945 Dermatology 02/24/22 Roney Story DPM [address] [facility] [address] [place], [place] 571237 Assigned Musculoskeletal Provider 03/20/22 08/13/22 Erica Farrell APRN WATCH CASER 1700 [place] [address] Assigned Heart and Vascular Provider 04/03/22 04/16/22 Diana Desir, [facility] [address] [place] [address] Assigned MTM Pharmacist 04/07/22 Jelena David OD [address] [facility] [place] [address] Assigned Surgical Provider 05/08/22 10/08/22 Galo Burrell MD Assigned Heart and Vascular Provider 04/17/22 06/11/22 Livan Sharif MD [address] [facility] [address] [place] [address] Cardiovascular Disease 05/14/22 Livan Sharif MD [address] [place] [address] Assigned Heart and Vascular Provider 06/12/22 07/23/22 Catherine Cm MD [address] [facility] [address] [place] [address] Cardiovascular Disease 07/21/22 Valery Veronica, PAUcheC [address] [place] [address] Physician Room Service Supervisor Dermatology 07/21/22 Catherine Cm MD [address] [facility] [address] [place] [address] Assigned Heart and Vascular Provider 07/24/22 11/05/22 Johnny Murillo MD [address] [place] [address] Assigned Musculoskeletal Provider 08/14/22 10/08/22 Brea Quinn APRN WATCH CASER [address] [place] [address] Nurse Practitioner Dermatology 09/21/22 Brea Quinn APRN WATCH CASER [address] [place] [address] [place] [address] Assigned Surgical Provider 10/09/22 05/01/24 [place] [address] [address] [facility] 300 [place] [address] Assigned Musculoskeletal Provider 10/09/22 05/01/24 Livan Sharif MD [address] [place] [address] Assigned Heart and Vascular Provider 11/06/22 11/12/22 Catherine Cm MD [address] [place] [address] Assigned Heart and Vascular Provider 11/13/22 05/27/23 Sydnie Martinez RN Personal Advocate & Liaison (PAL) Family Medicine 03/28/23 07/31/23 Alfonso Renteria MD [address] [facility] 200 [place] [address] Assigned Neuroscience Provider 04/02/23 09/29/24 Cheng Tdod PA-C [address] [place] [address] Assigned PCP 04/30/23 07/15/23 Radha Lomeli, ARLENE WATCH CASER [address] [place] [address] Assigned Heart and Vascular Provider 05/28/23 11/29/24 Jelena David OD [facility] [facility] [place] [address] Ophthalmology 06/15/23 Pao Joseph, VJ Personal Advocate & Liaison (PAL) Nurse 08/01/23 11/07/23 Esha Grimm PA-C [address] [place] [phone] Assigned PCP 07/16/23 Valery Veronica PA-C [address] [place] [address] 895225 Physician Room Service Supervisor Dermatology 09/19/23 Rey Tay MD [address] [place] [address] 780455 MD Gastroenterology 09/20/23 Rocky Zepeda DO [address] [place] [address] 855815 Physician Gastroenterology 09/20/23 Philip Dumont MD [address] [place] [address] 986465 Physician Ophthalmology 09/22/23 Meredith Carrera PA-C [address] [place] [address] 803565 Assigned Gastroenterology Provider 11/01/23 Neil Kent MD [address] [place] [address] Dermatology 11/02/23 [place] [address] [place] [address] Neurological Surgery 12/26/23 Audrey Waite PA-C [address] [place] [address] Physician Room Service Supervisor Dermatology 02/28/24 Valery Veronica PA-C [address] [place] [address] Physician Room Service Supervisor Dermatology 04/10/24 Herminia Hatch MD [address] [place] [address] Assigned Rheumatology Provider 07/02/24 Jelena David OD [address] [place] [address] [place] [address] Ophthalmology 08/30/24 [place] [address] [place] [place] [address] Assigned Neuroscience Provider 09/30/24 Maru Man PA-C [address] [place] [address] Physician Room Service Supervisor Dermatology 10/03/24 Maru Man PA-C [address] [place] [address] Physician Room Service Supervisor Dermatology 10/22/24 Jelena David, SONJA [address] [place] [address] [place] [address] Assigned Surgical Provider 10/31/24 Fabiano [place] NP [address] [address] Assigned Heart and Vascular Provider 11/30/24 documented as of this encounter
--- OUTSIDE RECORDS SUMMARY | 2024-12-31 03:14 | XMS_ITS | Encounter Summary ---
Author Organization [facility] Address [address] [place] [address] Care Team Providers Care Electrotype Servicer Name Role Phone Lita Oseguera Unavailable Unavailable Marija Edgar APRN CONSUMER ATTORNEY Primary Care Provider + Chanelle Mccann SUPERINTENDENT MARINE CNM Unavailab le Kyara De La Fuente RN Unavailable [phone] Marija Edgar APRN CONSUMER ATTORNEY Unavailable Mynor Broussard MD Unavailable [phone] Keisha Dotson MD Unavailable Stacey Briones OIL MIXER Unavailable [phone] Mary Mejia Unavailable Unavailable Galo Burrell MD Unavailable Unavailable Cristina Wood Unavailable Lesley Guillermo CHW Unavailable Meredith Bedoya Unavailable Unavailable Cristina Wood Unavailable Diana Desir [facility] Unavailable [phone] Rain Galaviz PA-C Unavailable Summer Lara MD Unavailable [phone] Summer Lara MD Unavailable [phone] Summer Lara MD Unavailable [phone] Tavia Wyatt MD Unavailable [phone] Johnny Murillo MD Unavailable [phone] Erica Farrell APRN CONSUMER ATTORNEY Unavailable Teresita Bean [facility] Unavailable Tavia Wyatt MD Unavailable [phone] Diana [place] [facility] Unavailable [phone] Rich Barrett MD Unavailable Neil Kent MD Unavailable Roney Story DPM Unavailable Bud, Erica Guidry SUPERINTENDENT MARINE CONSUMER ATTORNEY Unavailable Diana Desir [facility] Unavailable [phone] Jelena David Radha Unavailable Galo Burrell MD Unavailable Unavailable Livan Sharif MD Unavailable + Livan Sharif MD Unavailable + Catherine Cm MD Unavailable + Valery Veronica PA-C Unavailable [phone] Catherine Cm MD Unavailable + Johnny Murillo MD Unavailable [phone] Brea Quinn SUPERINTENDENT MARINE CONSUMER ATTORNEY Unavailable [phone] Brea Quinn SUPERINTENDENT MARINE CONSUMER ATTORNEY Unavailable [phone] Jose Francisco Johnson MD Unavailable Livan Sharif MD Unavailable Catherine Cm MD Unavailable + Sydnie Martinez RN Unavailable Unavailable Alfonso Renteria MD Unavailable [phone] Esha Grimm PA-C Primary Care Provider Cheng Todd PA-C Unavailable Radha Lomeli APRN CONSUMER ATTORNEY Unavailable Jelena David OD Unavailable Pao Joseph RN Unavailable Unavailable Esha Grimm PA-C Unavailable [phone] Valery Veronica PA-C Unavailable [phone] Rey Tay MD Unavailable Rocky Zepeda DO Unavailable Philip Dumont MD Unavailable Meredith Carrera PA-C Unavailable Neil Kent MD Unavailable Juan Pablo Emmanuel MD Unavailable Audrey Waite PA-C Unavailable Valery Veronica PA-C Unavailable Herminia Hatch MD Unavailable Jelena David OD Unavailable Juan Pablo Emmanuel MD Unavailable Maru Man PA-C Unavailable Maru Man PA-C Unavailable Jelena David OD Unavailable [phone] Fabiano Correa NP Unavailable Encounter Details Date Type Department Care Team (Late st Contact Info) Description 10/02/2020 [facility] [address] [place] [address] Stacey Briones, [facility] Social History Tobacco Use Types Packs/Day Years [...] Answer Date Recorded PHQ-2 Score 3 09/29/2020 [facility] - [...] CDT Legal Sex Female 4:13 AM SUPERVISOR TRANSFERRING AND BOXING Gender Identity Female 03/02/2021 5:45 PM CDT [...] Description 01/02/2025 1:10 PM CDT Ancillary Procedure [address] [phone] Lauren Claudio PA-C [id number] [place] [address] 01/17/2025 10:00 AM CDT Appointment [facility] [place] [phone] Lauren Claudio PA-C [address] [place] [address] 04/16/2025 11:00 AM CDT Virtual Visit [facility] [address] [phone] Meredith Carrera PA-C [address] [place] [address] documented as of this encounter Visit Diagnoses Not on filedocumented in this encounter Additional Health Concerns Infection Onset Date Last Indicated Resolved Time Rule Out COVID-19 11/05/2020 11/05/2020 11/06/2020 1:09 PM CDT Rule Out COVID-19 05/11/2021 05/11/2021 05/13/2021 10:18 AM CDT Rule Out COVID-19 07/13/2021 07/13/2021 07/14/2021 3:04 PM SUPERVISOR TRANSFERRING AND BOXING Rule Out COVID-19 07/18/2021 07/18/2021 07/20/2021 1:56 PM SUPERVISOR TRANSFERRING AND BOXING COVID-19 07/18/2021 07/18/2021 08/08/2021 11:3 9 PM SUPERVISOR TRANSFERRING AND BOXING Rule Out COVID-19 12/18/2021 12/18/2021 12/19/2021 11:34 AM CDT Rule Out COVID-19 02/24/2022 02/24/2022 02/25/2022 1:08 PM CDT Rule Out COVID-19 04/26/2022 04/26/2022 04/26/2022 6:47 AM CDT Rule Out COVID-19 05/17/2022 05/17/2022 05/17/2022 10:20 PM SUPERVISOR TRANSFERRING AND BOXING Rule Out COVID-19 06/09/2022 06/09/2022 06/09/2022 9:35 AM SUPERVISOR TRANSFERRING AND BOXING COVID-19 06/09/2022 06/09/2022 06/30/2022 11:4 1 PM SUPERVISOR TRANSFERRING AND BOXING Rule Out COVID-19 11/10/2022 11/10/2022 11/11/2022 12:17 [...] documented as of this encounter Care Teams Electrotype Servicer Relationship Specialty Start Date End Date Marija Edgar APRN CONSUMER ATTORNEY PCP - General Nurse Practitioner 04/30/20 04/14/23 Esha Grimm PA-C [address] [place] [phone] PCP - General Family Medicine 05/04/23 Lita Oseguera Personal Advocate & Liaison (PAL) 02/28/20 03/27/23 Chanelle Mccann APRN CNM [address] [place] [address] [address] [place], [place] [id number] Assigned OBGYN Provider 05/02/2005/09 Kyara De La Fuente, RN Specialty Brineyard Supervisor Neurology 06/04/20 03/05/21 Marija Edgar APRN CONSUMER ATTORNEY Assigned PCP 06/08/20 04/29/23 Mynor Broussard MD [address] [facility] [address] [place] [address] Assigned Surgical Provider 06/01/20 11/28/21 Keisha Dotson MD [address] [place] [address] Assigned Neuroscience Provider 06/04/20 04/01/23 Stacey Briones, OIL MIXER Lead Brineyard Supervisor Primary Care - CC 08/11/2012/30 Mary Mejia Financial Resource Worker 09/02/20 10/06/20 Galo Burrell MD Assigned Heart and Vascular Provider 10/05/20 04/02/22 Cristina Wood Financial Resource Worker 10/07/20 10/14/20 Lesley Guillermo, [facility] Community Health Worker 10/23/2012/30 Meredith Bedoya Financial Resource Worker 10/23/20 11/23/20 Cristina Wood Financial Resource Worker 02/09/21 02/09/21 Diana Desir, [facility] [address] [place], [place] [address] Pharmacist Pharmacist 04/17/21 Rain Galaviz PA-C [address] [place] [address] [address] [place], [place] [phone] Physician Paraprofessional Interpreter Dermatology 04/28/21 Summer Lara MD [address] [place] [address] [phone] Assigned OBGYN Provider 05/10/2105/23 Summer Lara MD [address] [place] [address] 523184 Assigned OBGYN Provider 05/31/21 2 Summer Lara MD [address] [place] [address] [phone] Assigned OBGYN Provider 05/24/2105/30 Tavia Wyatt MD [address] [place] [address] [phone] Dermatology 07/14/21 Johnny Murillo MD [address] [place] [address] Assigned Musculoskeletal Provider 08/30/21 03/17/22 Erica Farrell APRN CONSUMER ATTORNEY [address] [facility] [address] [place], [place] [phone] Nurse Practitioner Cardiovascular Disease 09/09/21 Teresita Bean, [facility] [address] [place] [phone] Pharmacist Pharmacist 09/24/21 09/29/21 Tavia Wyatt MD [address] [place] [address] Assigned Surgical Provider 11/29/21 05/07/22 [facility] [address] [place] [address] Assigned MTM Pharmacist 01/02/22 Rich Barrett MD [address] [place] [address] Physician Ophthalmology 01/21/22 Neil Kent MD [address] [place], [place] [phone] Dermatology 02/24/22 Roney Story DPM [address] [facility] [address] [place], [place] [address] Assigned Musculoskeletal Provider 03/20/22 08/13/22 Erica Farrell APRN CONSUMER ATTORNEY [address] [place] [address] Assigned Heart and Vascular Provider 04/03/22 04/16/22 Diana Desir, [facility] [address] [place] [address] Assigned MTM Pharmacist 04/07/22 Jelena David OD [address] [facility] [place] [address] Assigned Surgical Provider 05/08/22 10/08/22 Galo Burrell MD Assigned Heart and Vascular Provider 04/17/22 06/11/22 Livan Sharif MD [address] [place] [address] Cardiovascular Disease 05/14/22 Livan Sharif MD [address] [place] [address] Assigned Heart and Vascular Provider 06/12/22 07/23/22 Catherine Cm MD [address] [place] [address] Cardiovascular Disease 07/21/22 Valery Veronica PA-C [address] [place] [address] Physician Paraprofessional Interpreter Dermatology 07/21/22 Catherine Cm MD [address] [place] [address] Assigned Heart and Vascular Provider 07/24/22 11/05/22 Johnny Murillo MD [address] [place] [address] Assigned Musculoskeletal Provider 08/14/22 10/08/22 Brea Quinn APRN CONSUMER ATTORNEY [address] [place] [address] Nurse Practitioner Dermatology 09/21/22 Brea Quinn APRN CONSUMER ATTORNEY [address] [facility] [place] [address] Assigned Surgical Provider 10/09/22 05/01/24 [place] [address] [address] Assigned Musculoskeletal Provider 10/09/22 05/01/24 Livan Sharif MD [address] [facility] [address] [place] [address] Assigned Heart and Vascular Provider 11/06/22 11/12/22 Catherine Cm MD [address] [facility] [address] [place] [address] Assigned Heart and Vascular Provider 11/13/22 05/27/23 Sydnie Martinez RN Personal Advocate & Liaison (PAL) Family Medicine 03/28/23 07/31/23 Alfonso Renteria MD [address] [facility] [address] [place] [address] Assigned Neuroscience Provider 04/02/23 09/29/24 Cheng Todd PA-C [address] [place] [address] Assigned PCP 04/30/23 07/15/23 Radha Lomeli APRN CONSUMER ATTORNEY [address] [facility] [address] [place] [address] Assigned Heart and Vascular Provider 05/28/23 11/29/24 Jelena David OD [address] [facility] [place] [address] Ophthalmology 06/15/23 Pao Joseph, VJ Personal Advocate & Liaison (PAL) Nurse 08/01/23 11/07/23 Esha Grimm PA-C [address] [place] [phone] Assigned PCP 07/16/23 Valery Veronica PA-C [address] [place] [address] Physician Paraprofessional Interpreter Dermatology 09/19/23 Rey Tay MD [address] [place] [address] [phone] Gastroenterology 09/20/23 Rocky Zepeda DO [address] [place] [address] Physician Gastroenterology 09/20/23 Philip Dumont MD [address] [place] [address] Physician Ophthalmology 09/22/23 Meredith Carrera PA-C [address] [place] [address] Assigned Gastroenterology Provider 11/01/23 Neil Kent MD [address] [address] Dermatology 11/02/23 [place] [address] [place], [place] [address] Neurological Surgery 12/26/23 Audrey Waite PA-C [address] [place] [address] Physician Paraprofessional Interpreter Dermatology 02/28/24 Valery Veronica PA-C [address] [place] [address] Physician Paraprofessional Interpreter Dermatology 04/10/24 Herminia Hatch MD [address] [place] [address] [phone] Assigned Rheumatology Provider 07/02/24 [place] [address] [place] [address] [place] [address] Ophthalmology 08/30/24 [place] [address] [place] [address] Assigned Neuroscience Provider 09/30/24 Maru Man PA-C [address] [place] [address] Physician Paraprofessional Interpreter Dermatology 10/03/24 Maru Man PA-C [address] [place] [address] Physician Paraprofessional Interpreter Dermatology 10/22/24 Jelena David OD [address] [facility] [place] [address] Assigned Surgical Provider 10/31/24 Fabiano [place]rea NP [address] [place] [address] Assigned Heart and Vascular Provider 11/30/24 documented as of this encounter
--- OUTSIDE RECORDS SUMMARY | 2024-12-31 03:14 | XMS_ITS | Clinical Summary ---
Author Organization [facility] Address [address] [address] Phone Care Team Providers Care Electromechanical Assembler Name Role Phone Unavailable Primary Care Provider [...]
--- OUTSIDE RECORDS SUMMARY | 2024-12-31 03:14 | XMS_ITS | Encounter Summary ---
Author Organization [place] Address [address] [place] [address] Care Team Providers Care Reading Professor Name Role Phone Lita Oseguera Unavailable Unavailable Marija Edgar APRN LACTATION SPECIALIST Primary Care Provider + Chanelle Mccann APRN CNM Unavailab le Kyara De La Fuente RN Unavailable [phone] Marija Edgar APRN LACTATION SPECIALIST Unavailable [phone] Mynor Broussard MD Unavailable [phone] Keisha Dotson MD Unavailable Stacey Briones PHARMACY TECHNICIAN TRAINEE Unavailable Lesley Guillermo CHW Unavailable Mary Mejia Unavailable Unavailable Lita Oseguera Unavailable Unavailable Galo Burrell MD Unavailable Unavailable Cristina Wood Unavailable Lesley Guillermo CHW Unavailable Meredith Bedoya Unavailable Unavailable Cristina Wood Unavailable Diana Desir [facility] Unavailable [phone] Rain Galaviz PA-C Unavailable Summer Lara MD Unavailable [phone] Summer Lara MD Unavailable [phone] Summer Lara MD Unavailable [phone] Tavia Wyatt MD Unavailable [phone] Johnny Murillo MD Unavailable [phone] Erica Farrell HOME WEATHERIZING WORKER LACTATION SPECIALIST Unavailable Vikas Teresitakaren Watson [facility] Unavailable Tavia Wyatt MD Unavailable [phone] Diana Desir [facility] Unavailable [phone] Rich Barrett MD Unavailable Neil Kent MD Unavailable Roney StoryM Unavailable Erica Farrell HOME WEATHERIZING WORKER LACTATION SPECIALIST Unavailable Diana Desir [facility] Unavailable [phone] Jelena David OD Unavailable Galo Burrell MD Unavailable Unavailable Livan Sharfi MD Unavailable Livan Sharif MD Unavailable Catherine Cm MD Unavailable + Valery Veronica PA-C Unavailable [phone] Catherine Cm MD Unavailable + Johnny Murillo MD Unavailable +[phone] Brea Quinn APRN LACTATION SPECIALIST Unavailable [phone] Brea Quinn APRN LACTATION SPECIALIST Unavailable [phone] Jose Francisco Johnson MD Unavailable Livan Sharif MD Unavailable + Catherine Cm MD Unavailable + Sydnie Martinez RN Unavailable Unavailable Alfonso Renteria MD Unavailable [phone] Esha Grimm PA-C Primary Care Provider Perez Chengjc Fish PA-C Unavailable ArmaniRadha ARLENE GRANADOS Unavailable Jelena David OD Unavailable Pao Joseph RN Unavailable Unavailable Esha Grimm PA-C Unavailable [phone] Valery Veronica PA-C Unavailable Rey Tay [...] Contact Info) Description 09/08/2020 MyC Medical Advice [address] [address] Marija Edgar APRN LACTATION SPECIALIST [address] [place] [phone] MyChart Communication Social History Tobacco Use Types [...] Answer Date Recorded PHQ-2 Score 0 08/12/2020 [facility] [place] of Occupat ional Health [...] PM CDT Legal Sex Female 4:13 AM ADMISSIONS COUNSELOR Gender Identity Female 03/02/2021 5:45 PM CDT Sexual Orientation Straight 02/28/2020 12 :51 AM CDT COVID-19 Exposure Response Date Recorded In the last month, have you been in contact with someone who was confirmed or suspected to have Coronavirus / COVID-19? No / Unsure 09/09/2020 10:09 AM ADMISSIONS COUNSELOR documented as of this encounter Miscellaneous Notes * Telephone Encounter - Natasha Luis RN - 09/09/2020 7:29 AM CST See Cactus message, cardio ordered, pt cannot view echo [...] RN, BSN Message handled by CLINIC NURSE.' SSIONS COUNSELOR * Telephone Encounter - Ever Cardozo MA - 09/09/2020 7:08 AM CST Triage, could you please see if results are posted yet in regards to patients ultrasound. Ever Cardozo AMUSEMENT CENTRE MANAGER ([facility]) SSIONS COUNSELOR documented in this encounter Plan of Treatment Upcoming Encounters Date Type Department Care Team (Latest Contact Info) Description 01/02/2025 1:10 PM CDT Ancillary Procedure [address] [address] Lauren Claudio PA-C [address] [place] [address] 01/17/2025 10:00 AM CDT Appointment [facility] Respiratory [address] [place] [phone] Lauren Claudio PA-C [address] [place] [address] 04/16/2025 11:00 AM CDT Virtual Visit [facility] [address] 4th [place] [phone] Meredith Carrera PA-C 909 [place] [address] documented as of this encounter Visit Diagnoses Not on filedocumented in this encounter Additional Health Concerns Infection Onset Date Last Indicated Resolved Time Rule Out COVID-19 09/24/2020 09/24/2020 09/24/2020 9:24 AM CDT Rule Out COVID-19 11/05/2020 11/05/2020 11/06/2020 1:09 PM CDT Rule Out COVID-19 05/11/2021 05/11/2021 05/13/2021 10:18 AM CDT Rule Out COVID-19 07/13/2021 07/13/2021 07/14/2021 3:04 PM ADMISSIONS COUNSELOR Rule Out COVID-19 07/18/2021 07/18/2021 07/20/2021 1:56 PM ADMISSIONS COUNSELOR COVID-19 07/18/2021 07/18/2021 08/08/2021 11:3 9 PM ADMISSIONS COUNSELOR Rule Out COVID-19 12/18/2021 12/18/2021 12/19/2021 11:34 AM CDT Rule Out COVID-19 02/24/2022 02/24/2022 02/25/2022 1:08 PM CDT Rule Out COVID-19 04/26/2022 04/26/202204/26/2022 6:47 AM CDT Rule Out COVID-19 05/17/2022 05/17/2022 05/17/2022 10:20 PM ADMISSIONS COUNSELOR Rule Out COVID-19 06/09/2022 06/09/2022 06/09/2022 9:35 AM ADMISSIONS COUNSELOR COVID-19 06/09/2022 06/09/2022 06/30/2022 11:4 1 PM ADMISSIONS COUNSELOR Rule Out COVID-19 11/10/2022 11/10/2022 11/11/2022 [...] Total Score: 9 06/25/20 20 7:04 AM ADMISSIONS COUNSELOR documented as of this encounter Care Teams Reading Professor Relationship Specialty Start Date End Date Marija Edgar APRN CNP PCP - General Nurse Practitioner 04/30/20 04/14/23 Esha Grimm PA-C [address] [place] [address] PCP - General Family Medicine 05/04/23 Lita Oseguera Personal Advocate & Liaison (PAL) 02/28/20 03/27/23 Chanelle Mccann APRN CNAdam [address] [place] [address] 200 [place], [place] 940277 Assigned OBGYN Provider 05/02/2005/09 Kyara De La Fuente, RN Specialty Due Diligence Coordinator Neurology 06/04/20 03/05/21 Marija Edgar APRN LACTATION SPECIALIST Assigned PCP 06/08/20 04/29/23 Mynor Broussard MD 6363 [facility] 500 [place], [place] 423455 Assigned Surgical Provider 06/01/20 11/28/21 Keisha Dotson MD 9 [place] [address] Assigned Neuroscience Provider 06/04/20 04/01/23 Stacey Briones, [facility] Lead Due Diligence Coordinator Primary Care - CC 08/11/2012/30 Lesley Guillermo, [facility] Community Health Worker 08/11/2010/01 Mary Mejia Financial Resource Worker 09/02/20 10/06/20 Lita Oseguera Personal Advocate & Liaison (PAL) Family Medicine 09/10/20 09/21/20 Galo Burrell MD Assigned Heart and Vascular Provider 10/05/20 04/02/22 Cristina Wood Financial Resource Worker 10/07/20 10/14/20 Lesley Guillermo, [facility] Community Health Worker 10/23/2012/30 Meredith Bedoya Financial Resource Worker 10/23/20 11/23/20 Cristina Wood Financial Resource Worker 02/09/21 02/09/21 Diana Desir, [facility] [address] [place] [address] Pharmacist Pharmacist 04/17/21 Rain Galaviz PA-C [address] [place] [address] [address] [place], [place] [phone] Physician Fitness Studies Teacher Dermatology 04/28/21 Summer Lara MD [address] [place], [place] 001654 Assigned OBGYN Provider 05/10/2105/23 Summer Lara MD [address] [place], [place] 28518454 Assigned OBGYN Provider 05/31/21 2 Summer Lara MD [address] [place], [place] 64728[address] Assigned OBGYN Provider 05/24/2105/30 Tavia Wyatt MD [address] [place], [place] [phone] Dermatology 07/14/21 Johnny Murillo MD [address] [facility] [address] [place] [address] Assigned Musculoskeletal Provider 08/30/21 03/17/22 Erica Farrell APRN LACTATION SPECIALIST [address] [facility] [address] [place], [place] 0[address] Nurse Practitioner Cardiovascular Disease 09/09/21 Teresita Bean [facility] [address] [facility] [address] [place] [phone] Pharmacist Pharmacist 09/24/21 09/29/21 Tavia Wyatt MD [address] [place], [place] 454410 Assigned Surgical Provider 11/29/21 05/07/22 Diana Desir, [facility] [address] [place] [address] Assigned MTM Pharmacist 01/02/22 Rich Barrett MD [facility] [place] 9[address]776 Physician Ophthalmology 01/21/22 Neil Kent MD 500 [place], [place] 187185 Dermatology 02/24/22 Roney Story DPM 14406 [facility] 300 [place], [place] 643507 Assigned Musculoskeletal Provider 03/20/22 08/13/22 Erica Farrell APRN LACTATION SPECIALIST 1700 [place] [address] Assigned Heart and Vascular Provider 04/03/22 04/16/22 Diana Desir, [facility] 3033 [place], [place] 582096 Assigned MTM Pharmacist 04/07/22 Jelena David OD [address] [place] [address] Assigned Surgical Provider 05/08/22 10/08/22 Galo Burrell MD Assigned Heart and Vascular Provider 04/17/22 06/11/22 Livan Sharif MD [address] [place], [place] 260965 Cardiovascular Disease 05/14/22 Livan Sharif MD [address] [place], [place] 868725 Assigned Heart and Vascular Provider 06/12/22 07/23/22 Catherine Cm MD [address] [place] [address] Cardiovascular Disease 07/21/22 Valery Veronica, PA-C 909 [place] [address] Physician Fitness Studies Teacher Dermatology 07/21/22 Catherine Cm MD [address] [place], [place] 071545 Assigned Heart and Vascular Provider 07/24/22 11/05/22 Johnny Murillo MD [address] [place] [address] Assigned Musculoskeletal Provider 08/14/22 10/08/22 Brea Quinn APRN LACTATION SPECIALIST 500 [facility] [place] [address] Nurse Practitioner Dermatology 09/21/22 Brea Quinn APRN LACTATION SPECIALIST [address] [facility] [place], [place] 7[address] Assigned Surgical Provider 10/09/22 05/01/24 [place] [address] [facility] 300 [place], [place] [address]0017 Assigned Musculoskeletal Provider 10/09/22 05/01/24 Livan Sharif MD 6[address] [facility] [address] [place] [address] Assigned Heart and Vascular Provider 11/06/22 11/12/22 Catherine Cm MD 6405 [facility] [address] [place] [address] Assigned Heart and Vascular Provider 11/13/22 05/27/23 Sydnie Martinez RN Personal Advocate & Liaison (PAL) Family Medicine 03/28/23 07/31/23 Alfonso Renteria MD 5775 [facility] 200 [place] [address] Assigned Neuroscience Provider 04/02/23 09/29/24 Cheng Todd PA-C [address] [place] [address] Assigned PCP 04/30/23 07/15/23 Radha Lomeli APRN LACTATION SPECIALIST 6[address] [facility] [address] [place] [address] Assigned Heart and Vascular Provider 05/28/23 11/29/24 Jelena David OD [address] [place] [address] Ophthalmology 06/15/23 Pao Joseph, VJ Personal Advocate & Liaison (PAL) Nurse 08/01/23 11/07/23 Esha Grimm PA-C [address] [place] [phone] Assigned PCP 07/16/23 Valery Veronica PA-C [address] [place] [address] 822775 Physician Fitness Studies Teacher Dermatology 09/19/23 Rey Tay MD [address] [place] [address] Gastroenterology 09/20/23 Rocky Zepeda DO [address] [place] [address] 471045 Physician Gastroenterology 09/20/23 Philip Dumont MD [address] [place] [address] Physician Ophthalmology 09/22/23 Meredith Carrera PA-C 909 [place] [address] Assigned Gastroenterology Provider 11/01/23 Neil Kent MD [address] [place] [address] Dermatology 11/02/23 [place] [address] RAZO [address] [place] [address] Neurological Surgery 12/26/23 Audrey Waite PA-C [address] [place] [address] Physician Fitness Studies Teacher Dermatology 02/28/24 Valery Veronica PA-C 059800 [place], [place] [address] Physician Fitness Studies Teacher Dermatology 04/10/24 Herminia Hatch MD [facility]5 [place], [place] 86763125 Assigned Rheumatology Provider 07/02/24 Jelena David OD [address] [place] [address] [place] [address] Ophthalmology 08/30/24 [place] [address] [place] [address] Assigned Neuroscience Provider 09/30/24 Maru Man PA-C [address] [place] [address] Physician Fitness Studies Teacher Dermatology 10/03/24 Maru Man PA-C [address] [place] [address] Physician Fitness Studies Teacher Dermatology 10/22/24 Jelena David OD 3305 [facility] [place] [address] Assigned Surgical Provider 10/31/24 Fabiano Correa NP [address] [place] [address] Assigned Heart and Vascular Provider 11/30/24 documented as of this encounter
--- OUTSIDE RECORDS SUMMARY | 2024-12-31 03:14 | XMS_ITS | Encounter Summary ---
Author Organization [place] Address [address] [place] [address] Care Team Providers Care Want Ad Clerk Name Role Phone Lita Oseguera Unavailable Unavailable Marija Edgar APRN GRADER PATROL Primary Care Provider + Chanelle Mccann COAT JOINER CNM Unavailab le Kyara De La Fuente RN Unavailable [phone] Marija Edgar APRN GRADER PATROL Unavailable [phone] Mynor Broussard MD Unavailable [phone] Keisha Dotson MD Unavailable [phone] Stacey Briones FARM[employer] Unavailable Galo Burrell MD Unavailable Unavailable Lesley Guillermo CHW Unavailable Meredith Bedoya Unavailable Unavailable Cristina Wood Unavailable Diana Desir [facility] Unavailable [phone] Rain Galaviz PA-C Unavailable Summer Lara MD Unavailable [phone] Summer Lara MD Unavailable [phone] Summer Lara MD Unavailable [phone] Tavia Wyatt MD Unavailable Johnny Murillo MD Unavailable [phone] Erica Farrell COAT JOINER GRADER PATROL Unavailable Vikas Teresita Watson [facility] Unavailable Tavia Wyatt MD Unavailable [phone] Diana Desir [facility] Unavailable Rich Barrett MD Unavailable Neil Kent MD Unavailable Roney Story DPM Unavailable Erica Farrell COAT JOINER GRADER PATROL Unavailable Diana Desir [facility] Unavailable Jelena David Unavailable Galo Burrell MD Unavailable Unavailable Livan Sharif MD Unavailable + Livan Sharif MD Unavailable + Catherine Cm MD Unavailable + Valery Veronica PA-C Unavailable [phone] Catherine Cm MD Unavailable + Johnny Murillo MD Unavailable [phone] Brea Quinn COAT JOINER GRADER PATROL Unavailable [phone] Brea Quinn COAT JOINER GRADER PATROL Unavailable [phone] Jose Francisco Johnson MD Unavailable Livan Sharif MD Unavailable Catherine Cm MD Unavailable + Sydnie Martinez RN Unavailable Unavailable Alfonso Renteria MD Unavailable [phone] Alfa, Esha M PA-C Primary Care Provider Perez Chengjc Fish PA-C Unavailable Radha Lomeli APRN GRADER PATROL Unavailable Jelena David OD Unavailable Pao Joseph RN Unavailable Unavailable Esha Grimm PA-C Unavailable [phone] Valery Veronica PA-C Unavailable Rey Tay [...] Contact Info) Description 10/24/2020 [facility] [address] [address] Marija Edgar APRN GRADER PATROL [address] [place], [place] [phone] Social History Tobacco Use Types Packs/Day Years [...] Score 3 09/29/2020 [facility] of Occupat ional Health [...] CDT Legal Sex Female 4:13 AM STEAM ROLLER OPERATOR Gender Identity Female 03/02/2021 5:45 PM [...] 11:44 AM CDT Replied to patient via [employer]. Anthony Doe PA-C on 10/27/2020 at 11:54 AM documented in this encounter Plan of Treatment Upcoming Encounters Date Type Department Care Team (Latest Contact Info) Description 01/02/2025 1:10 PM CDT Ancillary Procedure [address] [address] Lauren Claudio PA-C [address] [place] [address] 01/17/2025 10:00 AM CDT Appointment [facility] Respiratory [address] [place] [phone] Lauren Claudio PA-C [address] [place] [address] 04/16/2025 11:00 AM CDT Virtual Visit [facility] [address] [place] [phone] Meredith Carrera PA-C [address] [place] [address] documented as of this encounter Visit Diagnoses Not on filedocumented in this encounter Additional Health Concerns Infection Onset Date Last Indicated Resolved Time Rule Out COVID-19 11/05/2020 11/05/2020 11/06/2020 1:09 PM CDT Rule Out COVID-19 05/11/2021 05/11/2021 05/13/2021 10:18 AM CDT Rule Out COVID-19 07/13/2021 07/13/2021 07/14/2021 3:04 PM STEAM ROLLER OPERATOR Rule Out COVID-19 07/18/2021 07/18/2021 07/20/2021 1:56 PM STEAM ROLLER OPERATOR COVID-19 07/18/2021 07/18/2021 08/08/2021 11:3 9 PM STEAM ROLLER OPERATOR Rule Out COVID-19 12/18/2021 12/18/2021 12/19/2021 11:34 AM CDT Rule Out COVID-19 02/24/2022 02/24/2022 02/25/2022 1:08 PM CDT Rule Out COVID-19 04/26/2022 04/26/2022 04/26/2022 6:47 AM CDT Rule Out COVID-19 05/17/2022 05/17/2022 05/17/2022 10:20 PM STEAM ROLLER OPERATOR Rule Out COVID-19 06/09/2022 06/09/2022 06/09/2022 9:35 AM STEAM ROLLER OPERATOR COVID-19 06/09/2022 06/09/2022 06/30/2022 11:4 1 PM STEAM ROLLER OPERATOR Rule Out COVID-19 11/10/2022 11/10/2022 11/11/2022 [...] documented as of this encounter Care Teams Want Ad Clerk Relationship Specialty Start Date End Date Marija Edgar APRN GRADER PATROL PCP - General Nurse Practitioner 04/30/20 04/14/23 Esha Grimm PA-C [address] [place] [phone] PCP - General Family Medicine 05/04/23 Lita Oseguera Personal Advocate & Liaison (PAL) 02/28/20 03/27/23 Chanelle Mccann APRN CNM [address] [facility] 200 [place], [place] 615307 Assigned OBGYN Provider 05/02/2005/09 Kyara De La Fuente, RN Specialty Drug And Alcohol Counsellor Neurology 06/04/20 03/05/21 Marija Edgar APRN GRADER PATROL Assigned PCP 06/08/20 04/29/23 Mynor Broussard MD 6363 [facility] 500 [place] [address] Assigned Surgical Provider 06/01/20 11/28/21 Keisha Dotson MD 909 [place] [address] Assigned Neuroscience Provider 06/04/20 04/01/23 Stacey Briones, [facility] Lead Drug And Alcohol Counsellor Primary Care - CC 08/11/2012/30 Galo Burrell MD Assigned Heart and Vascular Provider 10/05/20 04/02/22 Lesley Guillermo, [facility] Community Health Worker 10/23/2012/30 Meredith Bedoya Financial Resource Worker 10/23/20 11/23/20 Cristina Wood Financial Resource Worker 02/09/21 02/09/21 Diana Desir, [facility] [address] [place] [address] Pharmacist Pharmacist 04/17/21 Rain Galaviz PA-C [address] [place] [address] [place] [address] Physician Reproducer Dermatology 04/28/21 Summer Lara MD [address] [place] [address] 751254 Assigned OBGYN Provider 05/10/2105/23 Summer Lara MD [address] [place] [address] 072644 Assigned OBGYN Provider 05/31/21 2 Summer Lara MD [address] [place] [address] Assigned OBGYN Provider 05/24/2105/30 Tavia Wyatt MD [address] [place] [address] Dermatology 07/14/21 Johnny Murillo MD [address] [place] [address] Assigned Musculoskeletal Provider 08/30/21 03/17/22 Erica Farrell APRN GRADER PATROL 6405 [facility] [address] [place] [address] Nurse Practitioner Cardiovascular Disease 09/09/21 Teresita Bean, [facility] [address] [facility] [place], [place] [phone] Pharmacist Pharmacist 09/24/21 09/29/21 Tavia Wyatt MD [address] [place] [address] Assigned Surgical Provider 11/29/21 05/07/22 [facility] 3033 [place] [address] Assigned MTM Pharmacist 01/02/22 Rich Barrett MD [address] [place] [address] Physician Ophthalmology 01/21/22 Neil Kent MD 500 [place] [address] Dermatology 02/24/22 Roney Story DPM [address] [facility] [address] [place] [address] Assigned Musculoskeletal Provider 03/20/22 08/13/22 Erica Farrell APRN GRADER PATROL 1700 [place] [address] Assigned Heart and Vascular Provider 04/03/22 04/16/22 Diana Desir, [facility] [address] [place], [place] 264276 Assigned MTM Pharmacist 04/07/22 Jelena David OD [address] [place] [address] Assigned Surgical Provider 05/08/22 10/08/22 Galo Burrell MD Assigned Heart and Vascular Provider 04/17/22 06/11/22 Livan Sharif MD 6[address] [facility] [address] [place] [address] Cardiovascular Disease 05/14/22 Livan Sharif MD [address] [facility] [address] [place] [address] Assigned Heart and Vascular Provider 06/12/22 07/23/22 Catherine Cm MD 6405 [facility] [address] [place] [address] Cardiovascular Disease 07/21/22 Valery Veronica, PA-C [address] [place] [address] Physician Reproducer Dermatology 07/21/22 Catherine Cm MD 6405 [facility] S [facility] [place] [address] Assigned Heart and Vascular Provider 07/24/22 11/05/22 Johnny Murillo MD [address] [address] Assigned Musculoskeletal Provider 08/14/22 10/08/22 Brea Quinn APRN GRADER PATROL [address] [place] [address] 242805 Nurse Practitioner Dermatology 09/21/22 Brea Quinn APRN GRADER PATROL [address] [place] [address] Assigned Surgical Provider 10/09/22 05/01/24 [place] [address] [address] Assigned Musculoskeletal Provider 10/09/22 05/01/24 Livan Sharif MD [address] [facility] [address] [place] [address] Assigned Heart and Vascular Provider 11/06/22 11/12/22 Catherine Cm MD 6405 [facility] S [facility] [place] [address]315 Assigned Heart and Vascular Provider 11/13/22 05/27/23 Sydnie Martinez, VJ Personal Advocate & Liaison (PAL) Family Medicine 03/28/23 07/31/23 Alfonso Renteria MD [address] [facility] [address] 200 [place] [address] Assigned Neuroscience Provider 04/02/23 09/29/24 Cheng Todd PA-C [address] [place] [address] Assigned PCP 04/30/23 07/15/23 Radha Lomeli APRN GRADER PATROL 6405 [facility] [address] [place] [address] Assigned Heart and Vascular Provider 05/28/23 11/29/24 Jelena David OD [address] [place] [address] Ophthalmology 06/15/23 Pao Joseph, VJ Personal Advocate & Liaison (PAL) Nurse 08/01/23 11/07/23 Esha Grimm PA-C [address] [place] [address] Assigned PCP 07/16/23 Valery Veronica PA-C [address] [place] [address] 676355 Physician Reproducer Dermatology 09/19/23 Rey Tay MD [address] [place] [address] Gastroenterology 09/20/23 Rocky Zepeda DO [address] [place] [address] Physician Gastroenterology 09/20/23 Philip Dumont MD [address] [place] [address] Physician Ophthalmology 09/22/23 Meredith Carrera PA-C [address] [place] [address] Assigned Gastroenterology Provider 11/01/23 Neil Kent MD [address] [address] MD Dermatology 11/02/23 [place] [address] [place] [address] Neurological Surgery 12/26/23 Audrey Waite PA-C [address] [place] [address] Physician Reproducer Dermatology 02/28/24 Valery Veronica PA-C 8[address]16 [address] [place] [address] Physician Reproducer Dermatology 04/10/24 Herminia Hatch MD [address] [place] [address] [id number] Assigned Rheumatology Provider 07/02/24 Jelena David OD [address] [place] [address] [place] [address] Ophthalmology 08/30/24 [place] [address] [address] [place] [address] Assigned Neuroscience Provider 09/30/24 aMru Man PA-C [address] [place] [address] Physician Reproducer Dermatology 10/03/24 Maru Man PA-C [address] [place] [address] Physician Reproducer Dermatology 10/22/24 Jelena David OD 3305 [facility] [place] [address] Assigned Surgical Provider 10/31/24 Fabiano Correa NP [address] [place] [address] Assigned Heart and Vascular Provider 11/30/24 documented as of this encounter
--- OUTSIDE RECORDS SUMMARY | 2024-12-31 03:14 | XMS_ITS | Encounter Summary ---
Author Organization [place] Address [address] [place] [address] Care Team Providers Care Investigator Utility Bill Complaints Name Role Phone Lita Oseguera Unavailable Unavailable Marija Edgar APRN PRODUCTION UTILITY WORKER Primary Care Provider + Marija Edgar APRN PRODUCTION UTILITY WORKER Unavailable [phone] Keisha Dotson MD Unavailable Diana Desir [facility] Unavailable [phone] Rain Galaviz PA-C Unavailable Tavia Wyatt MD Unavailable Erica Farrell APRN [facility] Unavailable Tavia Wyatt MD Unavailable [phone] Rich Barrett MD Unavailable [phone] Neil Kent MD Unavailable Roney Story DPM Unavailable Erica Farrell APRN PRODUCTION UTILITY WORKER Unavailable Diana Desir [facility] Unavailable Jelena David OD Unavailable Galo Burrell MD Unavailable Unavailable Livan Sharif MD Unavailable Livan Sharif MD Unavailable IsraynaCatherine boothe MD Unavailable + Valery Veronica PA-C Unavailable [phone] IsCatherine hobbs MD Unavailable + Johnny Murillo MD Unavailable [phone] Brea Quinn VPK TEACHER PRODUCTION UTILITY WORKER Unavailable [phone] Brea Quinn VPK TEACHER PRODUCTION UTILITY WORKER Unavailable [phone] Jose Francisco Johnson MD Unavailable Livan Sharif MD Unavailable Isfaby, Catherine Marques MD Unavailable + Sydnie Martinez RN Unavailable Unavailable Alfonso Renteria MD Unavailable [phone] Esha Grimm PA-C Primary Care Provider Cheng Todd PA-C Unavailable Radha Lomeli VPK TEACHER PRODUCTION UTILITY WORKER Unavailable [phone] Jelena David SONJA Unavailable Pao Joseph RN Unavailable Unavailable Esha Grimm PA-C Unavailable [phone] Valery Veronica PA-C Unavailable [phone] Rey Tay MD Unavailable Rocky Zepeda DO Unavailable Philip Dumont MD Unavailable [phone] Meredith Carrera PA-C Unavailable [phone] Neil Kent MD Unavailable Juan Pablo Emmanuel MD Unavailable Audrey Waite PA-C Unavailable Valery Veronica PA-C Unavailable Herminia Hatch MD Unavailable Jelena David OD Unavailable Juan Pablo Emmanuel MD Unavailable Maru Man PA-C Unavailable [phone] Maru Man PA-C Unavailable +- Jelena David OD Unavailable Fabiano Correa NP Unavailable [phone] Encounter Details Date Type Department Care Team (Late st Contact Info) Description 04/07/2022 MyC Medical Advice [address] [address] Diana Desir, [facility] [address] [place] [address] Social History Tobacco Use Types Packs/Day Years [...] How often do you attend [employer]beterian or adventism serv ices? Never 09/22/2021 Do [...] health care facility (including now)? No 09/22/2021 [facility] Depression [...] PM CDT Legal Sex Female 4:13 AM AUTO DAMAGE APPRAISER Gender Identity Female 03/02/2021 5:45 PM CDT [...] Description 01/02/2025 1:10 PM CDT Ancillary Procedure [facility] [id number] [place] [phone] Lauren Claudio PA-C [address] [place] [address] 01/17/2025 10:00 AM CDT Appointment [facility] Res[facility] [address] [place] [address] Lauren Claudio PA-C [address] [place] [address] 04/16/2025 11:00 AM CDT Virtual Visit [facility] [address] 4th [place] [phone] Meredith Carrera PA-C [address] [place] [address] documented as of this encounter Visit Diagnoses Not on filedocumented in this encounter Additional Health Concerns Infection Onset Date Last Indicated Resolved Time Rule Out COVID-19 04/26/2022 04/26/2022 04/26/2022 6:47 AM CDT Rule Out COVID-19 05/17/2022 05/17/2022 05/17/2022 10:20 PM AUTO DAMAGE APPRAISER Rule Out COVID-19 06/09/2022 06/09/2022 06/09/2022 9:35 AM AUTO DAMAGE APPRAISER COVID-19 06/09/2022 06/09/2022 06/30/2022 11:4 1 PM AUTO DAMAGE APPRAISER Rule Out COVID-19 11/10/2022 11/10/2022 11/11/2022 12:17 [...] as of this encounter Care Teams Investigator Utility Bill Complaints Relationship Specialty Start Date End Date Marija Edgar APRN PRODUCTION UTILITY WORKER PCP - General Nurse Practitioner 04/30/20 04/14/23 Esha Grimm PA-C [address] [place] [phone] PCP - General Family Medicine 05/04/23 Lita Oseguera Personal Advocate & Liaison (PAL) 02/28/20 03/27/23 Marija Edgar APRN PRODUCTION UTILITY WORKER Assigned PCP 06/08/20 04/29/23 Keisha Dotson MD 909 [place] [address] Assigned Neuroscience Provider 06/04/20 04/01/23 Diana Desir, [facility] [address] [place] [address] Pharmacist Pharmacist 04/17/21 Rian Galaviz PA-C [address] [place] [address] [address] [place] [address] Physician Plastic Welding Machine Operator Dermatology 04/28/21 Tavia Wyatt MD [address] [place] [address] [address] [place] [address] Dermatology 07/14/21 Erica Farrell APRN PRODUCTION UTILITY WORKER 6405 [facility] [address] [place] [address] Nurse Practitioner Cardiovascular Disease 09/09/21 Tavia Wyatt MD [address] [place], [place] 611800 Assigned Surgical Provider 11/29/21 05/07/22 Rich Barrett MD 101 [place], [place] 139780 Physician Ophthalmology 01/21/22 Neil Kent MD 500 [place], [place] 408975 Dermatology 02/24/22 Roney Story DPM [address] [facility] [address] [place], [place] [address]107 Assigned Musculoskeletal Provider 03/20/22 08/13/22 Erica Farrell APRN PRODUCTION UTILITY WORKER 1700 [place] [address] Assigned Heart and Vascular Provider 04/03/22 04/16/22 Diana Desir, [facility] [address] [place] [address] Assigned MTM Pharmacist 04/07/22 Jelena David OD 3305 [facility] [place] [address] Assigned Surgical Provider 05/08/22 10/08/22 Galo Burrell MD Assigned Heart and Vascular Provider 04/17/22 06/11/22 Livan Sharif MD [address] [facility] [facility] [facility] [address] [place] [address] Cardiovascular Disease 05/14/22 Livan Sharif MD [address] [facility]00 [place] [address] Assigned Heart and Vascular Provider 06/12/22 07/23/22 Catherine Cm MD [address] [place] 0981900 [place] [address] Cardiovascular Disease 07/21/22 Valery Veronica, PA-C [address] [place] [address] Physician Plastic Welding Machine Operator Dermatology 07/21/22 Catherine Cm MD 6405 [facility] [address] [place] [address] Assigned Heart and Vascular Provider 07/24/22 11/05/22 Johnny Murillo MD [address] [place] [address] Assigned Musculoskeletal Provider 08/14/22 10/08/22 Brea Quinn APRN PRODUCTION UTILITY WORKER [address] [place] [address] Nurse Practitioner Dermatology 09/21/22 Brea Quinn APRN PRODUCTION UTILITY WORKER [address] [place] [address] [place] [address] Assigned Surgical Provider 10/09/22 05/01/24 [place] [address] [place] [address] Assigned Musculoskeletal Provider 10/09/22 05/01/24 Livan Sharif MD 6405 [facility] [address] [place] [address] Assigned Heart and Vascular Provider 11/06/22 11/12/22 Catherine Cm MD [address] [place] [address] [place] [address] Assigned Heart and Vascular Provider 11/13/22 05/27/23 Sydnie Martinez RN Personal Advocate & Liaison (PAL) Family Medicine 03/28/23 07/31/23 Alfonso Renteria MD 5775 [facility] 200 [place] [address] Assigned Neuroscience Provider 04/02/23 09/29/24 Cheng Todd PA-C [address] [place] [address] Assigned PCP 04/30/23 07/15/23 Radha Lomeli APRN PRODUCTION UTILITY WORKER 6405 [facility] 00 [place] [address] Assigned Heart and Vascular Provider 05/28/23 11/29/24 Jelena David OD [address] [facility] [place] [address] MD Ophthalmology 06/15/23 Pao Joseph, RN Personal Advocate & Liaison (PAL) Nurse 08/01/23 11/07/23 Esha Grimm PA-C [address] [place] [address] Assigned PCP 07/16/23 Valery Veronica PA-C [address] [place] [address] 618375 Physician Plastic Welding Machine Operator Dermatology 09/19/23 Rey Tya MD [address] [place] [address] 977615 MD Gastroenterology 09/20/23 Rocky Zepeda DO [address] [place] [address] 444335 Physician Gastroenterology 09/20/23 Philip Dumont MD 6 [place], [place] 084975 Physician Ophthalmology 09/22/23 Meredith Carrera PA-C [address] [place] [address] 714165 Assigned Gastroenterology Provider 11/01/23 Neil Kent MD [address] 036560 Dermatology 11/02/23 [place] [address] [place] [address] Neurological Surgery 12/26/23 Audrey Waite PA-C 500 [place] [address] Physician Plastic Welding Machine Operator Dermatology 02/28/24 Valery Veronica PA-C [address] [place] [address] Physician Plastic Welding Machine Operator Dermatology 04/10/24 Herminia Hatch MD [address] [place] [address] Assigned Rheumatology Provider 07/02/24 Jelena David OD [address] [place] [address] [place] [address] Ophthalmology 08/30/24 [place] [address] [place] [address] Assigned Neuroscience Provider 09/30/24 Maru Man PA-C [address] [place] [address] Physician Plastic Welding Machine Operator Dermatology 10/03/24 Maru Man PA-C [address] [place] [address] Physician Plastic Welding Machine Operator Dermatology 10/22/24 Jelena David OD [address] [place] [address] [place] [address] Assigned Surgical Provider 10/31/24 Fabiano Correa NP [address] [place] [address] Assigned Heart and Vascular Provider 11/30/24 documented as of this encounter
--- OUTSIDE RECORDS SUMMARY | 2024-12-31 03:14 | XMS_ITS | Encounter Summary ---
Author Organization [place] Address [address] [place] [address] Care Team Providers Care Carpenter Wooden Tank Erecting Name Role Phone Lita Oseguera Unavailable Unavailable Marija Edgar APRN CONSUMER INSIGHT MANAGER Primary Care Provider + Marija Edgar APRN CONSUMER INSIGHT MANAGER Unavailable [phone] Keisha Dotson MD Unavailable [phone] Diana Desir [facility] Unavailable Rain Galaviz PA-C Unavailable Tavia Wyatt MD Unavailable Erica Farrell APRN CONSUMER INSIGHT MANAGER Unavailable Tavia Wyatt MD Unavailable [phone] Rich Barrett MD Unavailable [phone] Neil Kent MD Unavailable Roney Story DPM Unavailable [phone] Diana Desir [facility] Unavailable Jelena David OD Unavailable Galo Burrell MD Unavailable Unavailable Livan Sharif MD Unavailable Livan Sharif MD Unavailable IsCatherine hobbs MD Unavailable + Valery Veronica PA-C Unavailable Catherine Cm MD Unavailable + Johnny Murillo MD Unavailable Brea Quinn MONUMENT STONECUTTER CONSUMER INSIGHT MANAGER Unavailable [phone] Brea Quinn MONUMENT STONECUTTER CONSUMER INSIGHT MANAGER Unavailable [phone] Jose Francisco Johnson MD Unavailable Livan Sharif MD Unavailable Catherine Cm MD Unavailable + Sydnie Martinez RN Unavailable Unavailable Alfonso Renteria MD Unavailable [phone] Esha Grimm PA-C Primary Care Provider Cheng Todd PA-C Unavailable Radha Lomeli MONUMENT STONECUTTER CONSUMER INSIGHT MANAGER Unavailable Jelena aDvid OD Unavailable Pao Joseph RN Unavailable Unavailable Esha Grimm PA-C Unavailable [phone] Valery Veronica PA-C Unavailable Rey Tay MD Unavailable Rocky Zepeda DO Unavailable Philip Dumont MD Unavailable Meredith Carrera PA-C Unavailable Neil Kent MD Unavailable Juan Pablo Emmanuel MD Unavailable Audrey Waite PA-C Unavailable Valery Veronica PA-C Unavailable Herminia Hatch MD Unavailable Jelena David OD Unavailable [phone] Juan Pablo Emmanuel MD Unavailable [phone] Maru Man PA-C Unavailable +[phone] Maru Man PA-C Unavailable +[phone] Jelena David OD Unavailable [phone] Fabiano Correa NP Unavailable [phone] Encounter Details Date Type Department Care Team (Late st Contact Info) Description 04/20/2022 MyC Medical Advice [facility] Heart [address] [place] [address] [place] [phone] Margaret Rendon RN Social History Tobacco Use [...] 12/18/2021 [facility] - Occupational Stress Questionnaire Answer Date Recorded [...] in a residential (including now)? No 09/22/2021 [place] Depression Scale Answer Date Recorded [place] Depression Score 5 01/14/2021 Last EPDS Self Harm Result Not on file 01/14 Education Answer Date Recorded What is the highest level of school you have completed or the highest degree you have received? 12th grade 08/07/2020 Comments No Sex and Gender Information Value Date Recorded Sex Assigned at Female 03/02/2021 5:45 PM CDT Legal Sex Female 4:13 AM HIM CLERK Gender Identity Female 03/02/2021 5:45 PM [...] Description 01/02/2025 1:10 PM CDT Ancillary Procedure [address] [phone] Lauren Claudio PA-C [address] [place] [address] 01/17/2025 10:00 AM CDT Appointment [facility] Respiratory [address] [place] [address] Lauren Claudio PA-C [address] [place] [address] 04/16/2025 11:00 AM CDT Virtual Visit [facility] [place] [address] [facility] SE 4th [place] [phone] Meredith Carrera PA-C [address] [place] [address] documented as of this encounter Visit Diagnoses Not on filedocumented in this encounter Additional Health Concerns Infection Onset Date Last Indicated Resolved Time Rule Out COVID-19 04/26/2022 04/26/2022 04/26/2022 6:47 AM CDT Rule Out COVID-19 05/17/2022 05/17/2022 05/17/2022 10:20 PM HIM CLERK Rule Out COVID-19 06/09/2022 06/09/2022 06/09/2022 9:35 AM HIM CLERK COVID-19 06/09/2022 06/09/2022 06/30/2022 11:4 1 PM HIM CLERK Rule Out COVID-19 11/10/2022 11/10/2022 11/11/2022 [...] documented as of this encounter Care Teams Carpenter Wooden Tank Erecting Relationship Specialty Start Date End Date Marija Edgar APRN CONSUMER INSIGHT MANAGER PCP - General Nurse Practitioner 04/30/20 04/14/23 Esha Grimm PA-C [address] [place] [address] PCP - General Family Medicine 05/04/23 Lita Oseguera Personal Advocate & Liaison (PAL) 02/28/20 03/27/23 Marija Edgar APRN CONSUMER INSIGHT MANAGER Assigned PCP 06/08/20 04/29/23 Keisha Dotson MD 909 [place], [place] 139905 Assigned Neuroscience Provider 06/04/20 04/01/23 Diana Desir, [facility] 30[address] [place], [place] 0[address]646 Pharmacist Pharmacist 04/17/21 Rain Galaviz PA-C [address] [place] [address] [address] [place] [address] Physician Cloth Boil Off Machine Operator Dermatology 04/28/21 Tavia Wyatt MD [address] [place] [address] [place] [id number] Dermatology 07/14/21 Erica Farrell APRN CONSUMER INSIGHT MANAGER 6[address] [facility] [place] [address] [place] 1956[address] Nurse Practitioner Cardiovascular Disease 09/09/21 Tavia Wyatt MD 101 [place], [place] 432330 Assigned Surgical Provider 11/29/21 05/07/22 Rich Barrett MD 101 [place], [place] 059410 Physician Ophthalmology 01/21/22 Neil Kent MD 500 [place], [place] 484445 Dermatology 02/24/22 Roney Story DPM [address] [facility] [address] [place], [place] [address] Assigned Musculoskeletal Provider 03/20/22 08/13/22 [facility] 30[address] [place], [place] 378156 Assigned MTM Pharmacist 04/07/22 Jelena David OD 3305 [facility] [place] [address] Assigned Surgical Provider 05/08/22 10/08/22 Galo Burrell MD Assigned Heart and Vascular Provider 04/17/22 06/11/22 Livan Sharif MD [address] [place] [address] [place] [address] Cardiovascular Disease 05/14/22 Livan Sharif MD [address] [place] [address] [place] [address] Assigned Heart and Vascular Provider 06/12/22 07/23/22 Catherine Cm MD [address] [place] 8775000 [place] [address] Cardiovascular Disease 07/21/22 Valery Veronica, PAUcheC [address] [place] [address] Physician Cloth Boil Off Machine Operator Dermatology 07/21/22 Catherine Cm MD [address] [place] [address] [place] [address] Assigned Heart and Vascular Provider 07/24/22 11/05/22 Johnny Murillo MD [address] [place] [address] 336984 Assigned Musculoskeletal Provider 08/14/22 10/08/22 Brea Quinn APRN CONSUMER INSIGHT MANAGER [address] [place] [address] 530825 Nurse Practitioner Dermatology 09/21/22 Brea Quinn APRN CONSUMER INSIGHT MANAGER [address] [place] [address] [place] [address] Assigned Surgical Provider 10/09/22 05/01/24 [place] [address] [place] [address] Assigned Musculoskeletal Provider 10/09/22 05/01/24 Livan Sharif MD [address] [place] [address] [place] [address] Assigned Heart and Vascular Provider 11/06/22 11/12/22 Catherine Cm MD [address] [place] [address] [place] [address] Assigned Heart and Vascular Provider 11/13/22 05/27/23 Sydnie Martinez RN Personal Advocate & Liaison (PAL) Family Medicine 03/28/23 07/31/23 Alfonso Renteria MD 5775 [facility] 200 [place] [address] Assigned Neuroscience Provider 04/02/23 09/29/24 Cheng Todd PA-C [address] [place] [address] [id number] Assigned PCP 04/30/23 07/15/23 Radha Lomeli APRN CONSUMER INSIGHT MANAGER [address] [place] [address] Assigned Heart and Vascular Provider 05/28/23 11/29/24 Jelena David OD [address] [facility] [place] [address] Ophthalmology 06/15/23 Pao Joseph, VJ Personal Advocate & Liaison (PAL) Nurse 08/01/23 11/07/23 Esha Grimm PAUcheC [address] [place] [address] Assigned PCP 07/16/23 Valery Veronica PA-C 9 [place] [address] Physician Cloth Boil Off Machine Operator Dermatology 09/19/23 Rey Tay MD [address] [place] [address] [id number] MD Gastroenterology 09/20/23 Rocky Zepeda DO [address] [place] [address] 209175 Physician Gastroenterology 09/20/23 Philip Dumont MD [address] [place] [address] 564835 Physician Ophthalmology 09/22/23 Meredith Carrera PA-C [address] [place] [address] 941405 Assigned Gastroenterology Provider 11/01/23 Neil Kent MD [address] [address] Dermatology 11/02/23 [place] [address] [place] [address] Neurological Surgery 12/26/23 Audrey Waite PA-C [address] [place] [address] Physician Cloth Boil Off Machine Operator Dermatology 02/28/24 Valery Veronica PA-C [address] [place] [address] Physician Cloth Boil Off Machine Operator Dermatology 04/10/24 Herminia Hatch MD [address] [place] [address] Assigned Rheumatology Provider 07/02/24 Jelena David OD [address] [place] [address] [place] [address] Ophthalmology 08/30/24 [place] [address] [place] [address] Assigned Neuroscience Provider 09/30/24 Maru Man PA-C [address] [place] [address] Physician Cloth Boil Off Machine Operator Dermatology 10/03/24 Maru Man PA-C [address] [place] [address] Physician Cloth Boil Off Machine Operator Dermatology 10/22/24 Jelena David OD [address] [place] [address] [place] [address] Assigned Surgical Provider 10/31/24 Fabiano Correa NP [address] [place] [address] Assigned Heart and Vascular Provider 11/30/24 documented as of this encounter
--- OUTSIDE RECORDS SUMMARY | 2024-12-31 03:14 | XMS_ITS | Encounter Summary ---
Author Organization [place] Address [address] [place] [address] Care Team Providers Care Associate Dean Name Role Phone Diana Desir Stanislav [facility] Unavailable Rain Galaviz PA-C Unavailable Tavia Wyatt MD Unavailable Erica Farrell APRN HOG HANDLER Unavailable Rich Barrett MD Unavailable [phone] Neil Kent MD Unavailable ThangKendrickDiana Stanislav [facility] Unavailable [phone] Livan Sharif MD Unavailable Catherine Cm MD Unavailable + Valery Veronica-C Unavailable [phone] Brea Quinn APRN HOG HANDLER Unavailable [phone] Esha Grimm PA-C Primary Care Provider Radha Lomeli APRN HOG HANDLER Unavailable Jelena David OD Unavailable Esha Grimm PA-C Unavailable [phone] Valery Veronica PA-C Unavailable Rey Tay MD Unavailable Duane Rocky Unavailable Philip Dumont MD Unavailable LoreMeredith mayers PA-C Unavailable [phone] Neil Kent MD Unavailable Juan Pablo Emmanuel MD Unavailable Audrey Waite PA-C Unavailable [phone] Valery Veronica PA-C Unavailable Herminia Hatch MD Unavailable Jelena David OD Unavailable Juan Pablo Emmanuel MD Unavailable [phone] Maru Man-C Unavailable [phone] Maru Man-C Unavailable Jelena David OD Unavailable Fabiano Correa NP Unavailable [phone] Encounter Details Date Type Department Care Team (Late st Contact Info) Description 11/09/2024 MyC Medical Advice [facility] [address] [place] [address] Apolinar Gresham Social History Tobacco [...] PHQ-2 Score 1 10/24/2024 [facility] - [facility]ational Stress Questionnaire Answer [...] exercise at this level? 20 min 05/07/2024 [place] Depression Scale Answer Date Recorded [place] [...] CDT Legal Sex Female 4:13 AM OPERATIONS ENGINEER Gender Identity Female 03/02/2021 5:45 PM CDT Sexual Orientation Straight 02/28/2020 12 :51 AM CDT documented as of this encounter Plan of Treatment Upcoming Encounters Date Type Department Care Team (Latest Contact Info) Description 01/02/2025 1:10 PM CDT Ancillary Procedure [facility] [address] [place] [phone] Lauren Claudio PA-C [address] [place] [address] 01/17/2025 10:00 AM CDT Appointment [facility] Res[facility] 5 [place] [address] Lauren Claudio PA-C [address] [place], [place] [phone] 04/16/2025 11:00 AM CDT Virtual Visit [facility] [address] 4th [place] [phone] eMredith Carrera PA-C 909 [place] [address] documented as of this encounter Visit Diagnoses [...] Start Date End Date Esha Grimm PA-C [address] [place] [address] PCP - General Family Medicine 05/04/23 Diana Desir, [facility] [place] [address] Pharmacist Pharmacist 04/17/21 Rain Galaviz PA-C [address] [place] [address] [address] [place] [address] Physician Size Stamper Dermatology 04/28/21 Tavia Wyatt MD [address] [place] [address] [address] [place] [address] Dermatology 07/14/21 Erica Farrell APRN HOG HANDLER [address] [place] [address] Nurse Practitioner Cardiovascular Disease 09/09/21 Rich Barrett MD [address] [place], [place] 5[address] Physician Ophthalmology 01/21/22 Neil Kent MD 500 [place], [place] 281815 Dermatology 02/24/22 [facility] [address] [place] [address] Assigned [place] Pharmacist 04/07/22 Livan Sharif MD [address] [address] Cardiovascular Disease 05/14/22 Catherine Cm MD [address] [address] Cardiovascular Disease 07/21/22 Valery Veronica, PA-C 909 [place], [place] 418015 Physician Size Stamper Dermatology 07/21/22 Brea Quinn APRN HOG HANDLER [address] [place] [address] 395445 Nurse Practitioner Dermatology 09/21/22 LomeliRadha APRN HOG HANDLER [address] [facility] [address] [address] [place] [address] Assigned Heart and Vascular Provider 05/28/23 11/29/24 [place] David OD [address] [facility] [place] [address] MD Ophthalmology 06/15/23 Esha Grimm PA-C [address] [place] [phone] Assigned PCP 07/16/23 Valery Veronica PA-C [address] [place] [address] 619555 Physician Size Stamper Dermatology 09/19/23 Rey Tay MD [address] [place] [address] 624975 Gastroenterology 09/20/23 Rocky Zepeda DO [address] [place] [address] 755205 Physician Gastroenterology 09/20/23 Philip Dumont MD [address] [place] [address] 798455 Physician Ophthalmology 09/22/23 Meredith Carrera PA-C [address] [place] [address] 943785 Assigned Gastroenterology Provider 11/01/23 Neil Kent MD [address] [place] [address] Dermatology 11/02/23 [place] [address] [place] [address] Neurological Surgery 12/26/23 Audrey Waite PA-C 500 [place] [address] Physician Size Stamper Dermatology 02/28/24 Valery Veronica PA-C 586416 [address], [place] [address] Physician Size Stamper Dermatology 04/10/24 Herminia Hatch MD [address] [place] [address] 86670125 Assigned Rheumatology Provider 07/02/24 [place] [address] [place] [address] [place] [address] Ophthalmology 08/30/24 [place] [address] [place] [address] Assigned Neuroscience Provider 09/30/24 Maru Man PA-C [address] [place] [address] Physician Size Stamper Dermatology 10/03/24 Maru Man PA-C [address] [place] [address] Physician Size Stamper Dermatology 10/22/24 Jelena David OD [address] [facility] [place] [address] Assigned Surgical Provider 10/31/24 Fabiano Correa NP [address] [place] [address] Assigned Heart and Vascular Provider 11/30/24 documented as of this encounter
--- OUTSIDE RECORDS SUMMARY | 2024-12-31 03:14 | XMS_ITS | Encounter Summary ---
Author Organization [place] Address [address] [place] [address] Care Team Providers Care Dispatch Clerk Name Role Phone Lita Oseguera Unavailable Unavailable Marija Edgar APRN SPAR MACHINE OPERATOR Primary Care Provider + Marija Edgar APRN SPAR MACHINE OPERATOR Unavailable [phone] Keisha Dotson MD Unavailable Diana Desir [facility] Unavailable [phone] Rain Galaviz PA-C Unavailable Tavia Wyatt MD Unavailable Erica Farrell APRN SPAR MACHINE OPERATOR Unavailable Tavia Wyatt MD Unavailable [phone] Rich Barrett MD Unavailable [phone] Neil Kent MD Unavailable Roney Story DPM Unavailable Diana Desir [facility] Unavailable Jelena David OD Unavailable Galo Burrell MD Unavailable Unavailable Livan Sharif MD Unavailable Livan Sharif MD Unavailable IsCatherine hobbs MD Unavailable + Valery Veronica PA-C Unavailable Catherine Cm MD Unavailable + Johnny Murillo MD Unavailable Brea Qunin SHOT EXAMINER SPAR MACHINE OPERATOR Unavailable [phone] Brea Quinn SHOT EXAMINER SPAR MACHINE OPERATOR Unavailable [phone] Jose Francisco Johnson MD Unavailable Livan Sharif MD Unavailable Catherine Cm MD Unavailable + Sydnie Martinez RN Unavailable Unavailable Alfonso Renteria MD Unavailable [phone] Esha Grimm PA-C Primary Care Provider Cheng Todd PA-C Unavailable Radha Lomeli SHOT EXAMINER SPAR MACHINE OPERATOR Unavailable Jelena David OD Unavailable Pao Joseph RN Unavailable Unavailable Esha Grimm PA-C Unavailable [phone] Valery Veronica PA-C Unavailable Rey Tay MD Unavailable Rocky Zepeda DO Unavailable Philip Dumont MD Unavailable Meredith Carrera PA-C Unavailable [phone] Neil Kent MD Unavailable Juan Pablo Emmanuel MD Unavailable Audrey Waite PA-C Unavailable Valery Veronica PA-C Unavailable Herminia Hatch MD Unavailable Jelena David OD Unavailable [phone] Juan Pablo Emmanuel MD Unavailable [phone] Maru Man PA-C Unavailable [phone] Maru Man PA-C Unavailable [phone] Jelena David OD Unavailable [phone] Fabiano Correa NP Unavailable [phone] Encounter Details Date Type Department Care Team (Late st Contact Info) Description 05/01/2022 [facility] [place] [address] [address] Diana Desir, [facility] [address] [place] [address] Social History Tobacco Use Types Packs/Day Years [...] How often do you attend tenriism or yazdanism serv ices? Never 09/22/2021 Do [...] in a assisted (including now)? No 09/22/2021 [place] Depression Scale Answer Date Recorded [place] Depression Score 5 01/14/2021 Last EPDS Self Harm Result Not on file 01/14 Education Answer Date Recorded What is the highest level of school you have completed or the highest degree you have received? 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 Gender Identity Female 03/02/2021 5:45 PM [...] Description 01/02/2025 1:10 PM CDT Ancillary Procedure [facility] [address] [place] [phone] Lauren Claudio PA-C [address] [place], [place] [phone] 01/17/2025 10:00 AM CDT Appointment [facility] [address] [place] [phone] Lauren Claudio PA-C [address] [place] [address] 04/16/2025 11:00 AM CDT Virtual Visit [facility] [address]th [place] [phone] Meredith Carrera PA-C [address] [place] [address] documented as of this encounter Visit Diagnoses Not on filedocumented in this encounter Additional Health Concerns Infection Onset Date Last Indicated Resolved Time Rule Out COVID-19 05/17/2022 05/17/2022 05/17/2022 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 Rule Out COVID-19 06/09/2022 06/09/2022 06/09/2022 9:35 AM 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 COVID-19 06/09/2022 06/09/2022 06/30/2022 11:4 1 PM 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 Rule Out COVID-19 11/10/2022 11/10/2022 11/11/2022 [...] documented as of this encounter Care Teams Dispatch Clerk Relationship Specialty Start Date End Date Marija Edgar APRN SPAR MACHINE OPERATOR PCP - General Nurse Practitioner 04/30/20 04/14/23 Esha Grimm PA-C [address] [place] [address] PCP - General Family Medicine 05/04/23 Lita Oseguera Personal Advocate & Liaison (PAL) 02/28/20 03/27/23 Marija Edgar APRN SPAR MACHINE OPERATOR Assigned PCP 06/08/20 04/29/23 Keisha Dotson MD [address] [place] [address] Assigned Neuroscience Provider 06/04/20 04/01/23 Diana Desir, [facility] 30[address] [place], [place] 503236 Pharmacist Pharmacist 04/17/21 Rain Galaviz PA-C [address] [place] [address] [address] [place] [address] Physician Sole Stainer Dermatology 04/28/21 Tavia Wyatt MD [address] [place] [address] [place] [address] Dermatology 07/14/21 Erica Farrell APRN SPAR MACHINE OPERATOR [address] [facility] [address] [place] [address] Nurse Practitioner Cardiovascular Disease 09/09/21 Tavia Wyatt MD [address] [place], [place] 111480 Assigned Surgical Provider 11/29/21 05/07/22 Rich Barrett MD [address] [place] [address] Physician Ophthalmology 01/21/22 Neil Kent MD 500 [place], [place] 773575 Dermatology 02/24/22 [place] [address] [facility] [address] [place], [place] 7[address] Assigned Musculoskeletal Provider 03/20/22 08/13/22 Diana Desir, [facility] 30[address] [place], [place] 798086 Assigned MTM Pharmacist 04/07/22 [place] [address] [facility] [place] [address] Assigned Surgical Provider 05/08/22 10/08/22 Galo Burrell MD Assigned Heart and Vascular Provider 04/17/22 06/11/22 Livan Sharif MD [address] [place] 213555 Cardiovascular Disease 05/14/22 Livan Sharif MD [address] [place] 636695 Assigned Heart and Vascular Provider 06/12/22 07/23/22 Catherine Cm MD [address] [place] 2805500 [place] [address] Cardiovascular Disease 07/21/22 Valery Veronica, PA-C [address] [place] [address] 697965 Physician Sole Stainer Dermatology 07/21/22 Catherine Cm MD [address] [address] Assigned Heart and Vascular Provider 07/24/22 11/05/22 Johnny Murillo MD [address] [place] [address] Assigned Musculoskeletal Provider 08/14/22 10/08/22 Brea Quinn APRN SPAR MACHINE OPERATOR [address] [place] [address] 124215 Nurse Practitioner Dermatology 09/21/22 Brea Quinn APRN SPAR MACHINE OPERATOR [address] [place] [address] Assigned Surgical Provider 10/09/22 05/01/24 [place] [address] [address] Assigned Musculoskeletal Provider 10/09/22 05/01/24 Livan Sharif MD [address] [address] [place] [address] Assigned Heart and Vascular Provider 11/06/22 11/12/22 Catherine Cm MD [address] [address] [place] [address] Assigned Heart and Vascular Provider 11/13/22 05/27/23 Sydnie Martinez RN Personal Advocate & Liaison (PAL) Family Medicine 03/28/23 07/31/23 Alfonso Renteria MD 5775 [facility] 200 [place] [address] Assigned Neuroscience Provider 04/02/23 09/29/24 Cheng Todd PA-C [address] [place] [address] Assigned PCP 04/30/23 07/15/23 Radha Lomeli APRN SPAR MACHINE OPERATOR [address] [place] [address] Assigned Heart and Vascular Provider 05/28/23 11/29/24 Jelena David OD [facility] [facility] [place] [address] Ophthalmology 06/15/23 Pao Joseph, VJ Personal Advocate & Liaison (PAL) Nurse 08/01/23 11/07/23 Esha Grimm PA-C [address] [place] [phone] Assigned PCP 07/16/23 Valery Veronica PA-C [address] [place] [address] Physician Sole Stainer Dermatology 09/19/23 Rey Tay MD [address] [place] [address] MD Gastroenterology 09/20/23 Rocky Zepeda DO [address] [place] [address] Physician Gastroenterology 09/20/23 Philip Dumont MD [address] [place] [address] Physician Ophthalmology 09/22/23 Meredith Carrera PA-C [address] [place] [address] Assigned Gastroenterology Provider 11/01/23 Neil Kent MD [address] [address] Dermatology 11/02/23 [place] [address] [place] [address] [address] Neurological Surgery 12/26/23 Audrey Waite PA-C [address] [place] [address] Physician Sole Stainer Dermatology 02/28/24 Valery Veronica PA-C [address]19 [address] [place] [address] Physician Sole Stainer Dermatology 04/10/24 Herminia Hatch MD [address] [place] [address] Assigned Rheumatology Provider 07/02/24 Jelena David OD [address] [place] [address] [place] [address] Ophthalmology 08/30/24 [place] [address] [place] [address] Assigned Neuroscience Provider 09/30/24 Maru Man PA-C [address] [place] [address] Physician Sole Stainer Dermatology 10/03/24 Maru Man PA-C [address] [place] [address] Physician Sole Stainer Dermatology 10/22/24 Jelena David OD [address] [place] [address] [place] [address] Assigned Surgical Provider 10/31/24 Fabiano Correa NP [address] [place] [address] Assigned Heart and Vascular Provider 11/30/24 documented as of this encounter
--- OUTSIDE RECORDS SUMMARY | 2024-12-31 03:14 | XMS_ITS | Encounter Summary ---
Author Organization [place] Address [address] [place] [address] Care Team Providers Care Web Art Director Name Role Phone Diana Desir Stanislav [facility] Unavailable Rain Galaviz PA-C Unavailable [phone] Tavia Wyatt MD Unavailable Erica Farrell APRN BLOCKER POLISHING Unavailable Rich Barrett MD Unavailable [phone] Neil Kent MD Unavailable ThangKendrickDiana Stanislav [facility] Unavailable [phone] Livan Sharif MD Unavailable Catherine Cm MD Unavailable + Valery Veronica-C Unavailable Brea Quinn APRN BLOCKER POLISHING Unavailable [phone] Esha Grimm PA-C Primary Care Provider Radha Lomeli APRN BLOCKER POLISHING Unavailable Jelena David OD Unavailable Esha Grimm PA-C Unavailable [phone] Valery Veronica PA-C Unavailable [phone] Rey Tay MD Unavailable DuaneRocky Unavailable Philip Dumont MD Unavailable [phone] PinoMeredith paez PA-C Unavailable [phone] Neil Kent MD Unavailable Juan Pablo Emmanuel MD Unavailable [phone] Audrey Waite PA-C Unavailable [phone] Valery Veronica PA-C Unavailable Herminia Hatch MD Unavailable Jelena David OD Unavailable Juan aPblo Emmanuel MD Unavailable [phone] Maru Man-C Unavailable [phone] Maru Man-C Unavailable [phone] Jelena David OD Unavailable Reason for Visit * Reason Onset Date Comments General 11/21/2024 Encounter Details Date Type Department Care Team (Late st Contact Info) Description 11/21/2024 Telephone [facility] Nurse Advisors [facility] [place] [place] [address] Celine Vogel RN General Social [...] 1 10/24/2024 [facility] ional [facility] - Occupational Stress Questionnaire [...] at this level? 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 was seen at [facility] today due to concern for tachycardia. has [...] Call from patient who was routed to travel writer while she was enroute to the [facility] with concerns regarding SVT. Patient states that she had already spoken with someone at the [facility] and She states that she had asked them to transfer her to someone so she could speak with someone as she was traveling with her 4 year old daughter. Patient reported to travel writer that she arrived safely to the hospital at 0405. documented in this encounter Plan of Treatment Upcoming Encounters Date Type Department Care Team (Latest Contact Info) Description 01/02/2025 1:10 PM CDT Ancillary Procedure [address] [address] Lauren Claudio PA-C [address] [place] [address] 01/17/2025 10:00 AM CDT Appointment [facility] Res[facility] [address] [place] [address] Lauren Claudio PA-C [address] [place] [address] 04/16/2025 11:00 AM CDT Virtual Visit [facility] [address] [place] [phone] Meredith Carrera PA-C [address] [place] [address] documented as of this encounter Visit Diagnoses Not on filedocumented in this encounter Additional Health Concerns Infection Onset Date Last Indicated Resolved Time Rule Out COVID-19 11/20/2024 11/20/2024 11/21/2024 11:23 AM CDT Assessment Noted Time PHQ-9 Depression Total Score: 5 10/25/19 10:38 AM CDT documented as of this encounter Care Teams Web Art Director Relationship Specialty Start Date End Date Esha Grimm PA-C [address] [place] [phone] PCP - General Family Medicine 05/04/23 [facility] [place] [address] Pharmacist Pharmacist 04/17/21 Rain Galaviz PA-C [address] [place] [address] [address] [place] [address] Physician Lapper Dermatology 04/28/21 Tavia Wyatt MD [address] [place] [address] [address] [place] [address] Dermatology 07/14/21 Erica Farrell APRN BLOCKER POLISHING [address] [place] [address] Nurse Practitioner Cardiovascular Disease 09/09/21 Rich Barrett MD [address] [place] [address] Physician Ophthalmology 01/21/22 Neil Kent MD 500 [place] [address] Dermatology 02/24/22 [facility] 3033 [place] [address] Assigned MTM Pharmacist 04/07/22 Livan Sharif MD [address] [place] [address] [address] Cardiovascular Disease 05/14/22 Catherine Cm MD [address] [address] Cardiovascular Disease 07/21/22 Valery Veronica, PA-C [address] [place] [address] Physician Lapper Dermatology 07/21/22 Brea Quinn APRN BLOCKER POLISHING 500 [place] [address] Nurse Practitioner Dermatology 09/21/22 Radha Lomeli APRN BLOCKER POLISHING [address] [facility] [place], [place] [address] Assigned Heart and Vascular Provider 05/28/23 11/29/24 Jelena David OD [address] [facility] [place] [address] MD Ophthalmology 06/15/23 Esha Grimm PA-C [address] [place] [phone] Assigned PCP 07/16/23 Valery Veronica PA-C [address] [place] [address] 370445 Physician Lapper Dermatology 09/19/23 Rey Tay MD [address] [place] [address] 985415 MD Gastroenterology 09/20/23 Rocky Zepeda DO [address] [place] [address] 454815 Physician Gastroenterology 09/20/23 Philip Dumont MD [address] [place] [address] 532025 Physician Ophthalmology 09/22/23 Meredith Carrera PA-C [address] [place] [address] 400565 Assigned Gastroenterology Provider 11/01/23 Neil Kent MD [address] [place] [address] Dermatology 11/02/23 [place] [address] [address] Neurological Surgery 12/26/23 Audrey Waite PA-C 500 [place] [address] Physician Lapper Dermatology 02/28/24 Valery Veronica PA-C [address] [place] [address] Physician Lapper Dermatology 04/10/24 Herminia Hatch MD [address] [place] [address] Assigned Rheumatology Provider 07/02/24 Jleena David OD [address] [place] [address] [place] [address] Ophthalmology 08/30/24 [place] [address] [place] [address] Assigned Neuroscience Provider 09/30/24 Maru Man PA-C [address] [place] [address] Physician Lapper Dermatology 10/03/24 Maru Man PA-C [address] [place] [address] Physician Lapper Dermatology 10/22/24 Jelena David OD [address] [place] [address] [place] [address] Assigned Surgical Provider 10/31/24 documented as of this encounter
--- OUTSIDE RECORDS SUMMARY | 2024-12-31 03:14 | XMS_ITS | Encounter Summary ---
Author Organization [place] Address [address] [place] [address] Care Team Providers Care Traveling Secretary Name Role Phone Diana Desir Stanislav [facility] Unavailable [phone] Rain Galaviz PA-C Unavailable Tavia Wyatt MD Unavailable Erica Farrell APRN JOURNALISM PROFESSOR Unavailable Rich Barrett MD Unavailable [phone] Neil Kent MD Unavailable ThangKendrickDiana Stanislav [facility] Unavailable [phone] Livan Sharif MD Unavailable Catherine Cm MD Unavailable + Valery Veronica-C Unavailable [phone] Brea Quinn APRN JOURNALISM PROFESSOR Unavailable Esha Grimm PA-C Primary Care Provider Radha Lomeli APRN JOURNALISM PROFESSOR Unavailable Jelena David OD Unavailable [phone] Esha Grimm PA-C Unavailable [phone] Valery Veronica PA-C Unavailable Rey Tay MD Unavailable Duane Rockyanne STEVENS Unavailable Philip Dumont MD Unavailable [phone] LoreMeredith mayers PA-C Unavailable [phone] Neil Kent MD Unavailable Juan Pablo Emmanuel MD Unavailable [phone] Audrey Waite PA-C Unavailable [phone] Valery Veronica PA-C Unavailable Herminia Hatch MD Unavailable Jelena David OD Unavailable Juan Pablo Emmanuel MD Unavailable [phone] Maru Man-C Unavailable [phone] Maru Man-C Unavailable [phone] Jelena David OD Unavailable Encounter Details Date [...] week 05/07/2024 How often do you attend [facility] or voodoo services? 1 to 4 [...] Date Recorded PHQ-2 Score 1 10/24/2024 [facility] [...] exercise at this level? 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 Gender Identity Female 03/02/2021 5:45 PM CDT Sexual Orientation Straight 02/28/2020 12 :51 AM CDT documented as of this encounter Plan of Treatment Upcoming Encounters Date Type Department Care Team (Latest Contact Info) Description 01/02/2025 1:10 PM CDT Ancillary Procedure [address] [phone] Lauren Claudio PA-C [address] [place] [address] 01/17/2025 10:00 AM CDT Appointment [facility] Respiratory 5 [place] [phone] Lauren Claudio PA-C [address] [place] [address] 04/16/2025 11:00 AM CDT Virtual Visit [facility] [place] [address] [facility] [address] 4th [place] [phone] Meredith Carrera PA-C 9 [place] [address] documented as of this encounter Visit Diagnoses Not on filedocumented in this encounter Additional Health Concerns Infection Onset Date Last Indicated Resolved Time Rule Out COVID-19 11/20/2024 11/20/2024 11/21/2024 11:23 AM CDT Assessment Noted Time PHQ-9 Depression Total Score: 5 10/25/19 10:38 AM CDT documented as of this encounter Care Teams Traveling Secretary Relationship Specialty Start Date End Date Esah Grimm PA-C [address] [place] [address] PCP - General Family Medicine 05/04/23 Diana Desir, [facility] [address] [place] [address] Pharmacist Pharmacist 04/17/21 Rain Galaviz PA-C [address] [place] [address] [address] [place] [address] Physician Cashier Host/Hostess Dermatology 04/28/21 Tavia Wyatt MD [address] [place] [address] [address] [place] [address] Dermatology 07/14/21 Erica Farrell APRN JOURNALISM PROFESSOR [address] [facility] [address] [place] [address] Nurse Practitioner Cardiovascular Disease 09/09/21 Rich Barrett MD [address] [place] [address] Physician Ophthalmology 01/21/22 Neil Kent MD 500 [place] [address] Dermatology 02/24/22 [facility] [address] [place] [address] Assigned MTM Pharmacist 04/07/22 Livan Sharif MD [address] [place] [address] Cardiovascular Disease 05/14/22 Catherine Cm MD [address] [place] [address] Cardiovascular Disease 07/21/22 Valery Veronica, PAUcheC [address] [place] [address] Physician Cashier Host/Hostess Dermatology 07/21/22 Brea Quinn APRN JOURNALISM PROFESSOR 500 [place] [address] Nurse Practitioner Dermatology 09/21/22 Radha Lomeli APRN JOURNALISM PROFESSOR [address] [place] [address]155 Assigned Heart and Vascular Provider 05/28/23 11/29/24 Jelena David OD [address] [facility] [address] MD Ophthalmology 06/15/23 Esha Grimm PA-C [address] [place] [address] Assigned PCP 07/16/23 Valery Veronica PA-C [address] [place] [address] Physician Cashier Host/Hostess Dermatology 09/19/23 Rey Tya MD [address] [place] [address] 798865 MD Gastroenterology 09/20/23 Rocky Zepeda DO [address] [place] [address] 758385 Physician Gastroenterology 09/20/23 Philip Dumont MD [address] [place] [address] 158225 Physician Ophthalmology 09/22/23 Meredith Carrera PA-C [address] [place] [address] 913525 Assigned Gastroenterology Provider 11/01/23 Neil Kent MD [address] [place] [address] 670430 Dermatology 11/02/23 [place] [address] [place] [address] Neurological Surgery 12/26/23 Audrey Waite PA-C 500 [place] [address] Physician Cashier Host/Hostess Dermatology 02/28/24 Valery Veronica PA-C [address] [address] Physician Cashier Host/Hostess Dermatology 04/10/24 Herminia Hatch MD [address] [place] [address] Assigned Rheumatology Provider 07/02/24 Jelena David OD [address] [place] [address] [place] [address] Ophthalmology 08/30/24 [place] [address] [place] [address] Assigned Neuroscience Provider 09/30/24 Maru Man PA-C [address] [place] [address] Physician Cashier Host/Hostess Dermatology 10/03/24 Maru Man PA-C [address] [place] [address] Physician Cashier Host/Hostess Dermatology 10/22/24 Jelena David OD [address] [place] [address] [place] [address] Assigned Surgical Provider 10/31/24 documented as of this encounter
--- OUTSIDE RECORDS SUMMARY | 2024-12-31 03:15 | XMS_ITS | Encounter Summary ---
Author Organization [facility] Address [address] [place] [address] Care Team Providers Care Ruby On Rails Developer Name Role Phone Lita Oseguera Unavailable Unavailable Marija Edgar APRN UPSCALE SECURITY OFFICER Primary Care Provider + Marija Edgar APRN UPSCALE SECURITY OFFICER Unavailable Keisha Dotson MD Unavailable Galo Burrell MD Unavailable Unavailable Diana Desir [facility] Unavailable [phone] Rain Galaviz PA-C Unavailable Summer Lara MD Unavailable [phone] Tavia Wyatt MD Unavailable Johnny Murillo MD Unavailable Erica Farrell APRN UPSCALE SECURITY OFFICER Unavailable Tavia Wyatt MD Unavailable Diana Desir [facility] Unavailable Rich Barrett MD Unavailable [phone] Neil Kent MD Unavailable Roney Story DPM Unavailable Erica Farrell APRN UPSCALE SECURITY OFFICER Unavailable Diana Desir [facility] Unavailable [phone] Jelena David OD Unavailable [phone] Galo Burrell MD Unavailable Unavailable HoLivan MD Unavailable Livan Sharif MD Unavailable IsCatherine hobbs MD Unavailable + Valery Veronica PA-C Unavailable [phone] Catherine Cm MD Unavailable + Johnny Murillo MD Unavailable [phone] Brea Quinn TIRE WORKER UPSCALE SECURITY OFFICER Unavailable [phone] Brea Quinn TIRE WORKER UPSCALE SECURITY OFFICER Unavailable [phone] Jose Francisco Johnson MD Unavailable Livan Sharif MD Unavailable + IsCatherine boothe MD Unavailable + Sydnie Martinez RN Unavailable Unavailable Alfonso Renteria MD Unavailable Esha Grimm PA-C Primary Care Provider Cheng Todd PA-C Unavailable Radha Lomeli TIRE WORKER UPSCALE SECURITY OFFICER Unavailable [phone] Jelena David OD Unavailable Pao Joseph RN Unavailable Unavailable Esha Grimm PA-C Unavailable [phone] Valery Veronica PA-C Unavailable [phone] Rey Tay MD Unavailable Rocky Zepeda DO Unavailable Philip Dumont MD Unavailable [phone] Meredith Carrera PA-C Unavailable [phone] Neil Kent MD Unavailable Juan Pablo Emmanuel MD Unavailable [phone] Audrey WaiteC Unavailable [phone] Valery VeronicaC Unavailable [phone] Herminia Hatch MD Unavailable Jelena David OD Unavailable Juan Pablo Emmanuel MD Unavailable [phone] Maru Man PA-C Unavailable [phone] Maru Man PA-C Unavailable [phone] Jelena David OD Unavailable [phone] Fabiano Correa WORKPLACE RELATIONS ADVISER Unavailable [phone] Encounter Details Date Type Department Care Team (Late st Contact Info) Description 12/03/2021 MyC Medical Advice [address] [address] Debbie Hdez MA Social History [...] How often do you attend holiness or restoration serv ices? Never 09/22/2021 Do [...] Answer Date Recorded PHQ-2 Score 2 09/22/2021 [facility] [...] in a prison (including now)? No 09/22/2021 [place] Depression Scale Answer Date Recorded [place] Depression Score 5 01/14/2021 Last EPDS Self Harm Result Not on file 01/14 Education Answer Date Recorded What is the highest level of school you have completed or the highest degree you have received? 12th grade 08/07/2020 Comments No Sex and Gender Information Value Date Recorded Sex Assigned at Female 03/02/2021 5:45 PM CDT Legal Sex Female 4:13 AM ORCHESTRA LEADER Gender Identity Female 03/02/2021 5:45 PM [...] 01/02/2025 1:10 PM CDT Ancillary Procedure [address] [phone] Lauren Claudio PA-C [address] [place] [address] [phone] 01/17/2025 10:[address] [facility] Respiratory [address] [place] [phone] Lauren Claudio PA-C [address] [place], [place] [phone] 04/16/2025 11:00 AM CDT Virtual Visit [facility] [address] 4th [place] [phone] Meredith Carrera PA-C 909 [place] [address] documented as of this encounter Visit Diagnoses Not on filedocumented in this encounter Additional Health Concerns Infection Onset Date Last Indicated Resolved Time Rule Out COVID-19 12/18/2021 12/18/2021 12/19/2021 11:34 AM CDT Rule Out COVID-19 02/24/2022 02/24/2022 02/25/2022 1:08 PM CDT Rule Out COVID-19 04/26/2022 04/26/2022 04/26/2022 6:47 AM CDT Rule Out COVID-19 05/17/2022 05/17/2022 05/17/2022 10:20 PM ORCHESTRA LEADER Rule Out COVID-19 06/09/2022 06/09/2022 06/09/2022 9:35 AM ORCHESTRA LEADER COVID-19 06/09/2022 06/09/2022 06/30/2022 11:4 1 PM ORCHESTRA LEADER Rule Out COVID-19 11/10/2022 11/10/2022 11/11/2022 [...] documented as of this encounter Care Teams Ruby On Rails Developer Relationship Specialty Start Date End Date Marija Edgar APRN UPSCALE SECURITY OFFICER PCP - General Nurse Practitioner 04/30/20 04/14/23 Esha Grimm PA-C [address] [place] [phone] PCP - General Family Medicine 05/04/23 Lita Oseguera Personal Advocate & Liaison (PAL) 02/28/20 03/27/23 Marija Edgar APRN UPSCALE SECURITY OFFICER Assigned PCP 06/08/20 04/29/23 Keisha Dotson MD 9[address] [place], [place] 778845 Assigned Neuroscience Provider 06/04/20 04/01/23 Galo Burrell MD Assigned Heart and Vascular Provider 10/05/20 04/02/22 Diana Desir, [facility] [address] [place] [address] Pharmacist Pharmacist 04/17/21 Rain Galaviz PA-C [address] [facility] [place] [address] Physician Strategic Planning Director Dermatology 04/28/21 Summer Lara MD [address] [place], [place] [address]48[address] Assigned OBGYN Provider 05/31/21 Tavia Wyatt MD [address] [facility] [address] [place], [place] 6[address] Dermatology 07/14/21 Johnny Murillo MD [address] [place], [place] 956804 Assigned Musculoskeletal Provider 08/30/21 03/17/22 Erica Farrell APRN UPSCALE SECURITY OFFICER [address] [facility] [address] [place], [place] [address] Nurse Practitioner Cardiovascular Disease 09/09/21 Tavia Wyatt MD [address] [place], [place] 273650 Assigned Surgical Provider 11/29/21 05/07/22 Diana Desir, [facility] [address] [place] [address] Assigned MTM Pharmacist 01/02/22 Rich Barrett MD [address] [place] [address] Physician Ophthalmology 01/21/22 Neil Kent MD [address] [place] [address] Dermatology 02/24/22 Roney Story DPM [address] [employer] [place] [address] Assigned Musculoskeletal Provider 03/20/22 08/13/22 Erica Farrell APRN UPSCALE SECURITY OFFICER [address] [place] [address] Assigned Heart and Vascular Provider 04/03/22 04/16/22 Diana Desir, [facility] [address] [place] [address] Assigned MTM Pharmacist 04/07/22 Jelena David OD [address] [place] [address] Assigned Surgical Provider 05/08/22 10/08/22 Galo Burrell MD Assigned Heart and Vascular Provider 04/17/22 06/11/22 Livan Sharif MD [address] [place] [address] Cardiovascular Disease 05/14/22 Livan Sharif MD [address] [place] [address] Assigned Heart and Vascular Provider 06/12/22 07/23/22 Catherine Cm MD [address] [place] [address] Cardiovascular Disease 07/21/22 Valery Veronica, PA-C [address] [place] [address] Physician Strategic Planning Director Dermatology 07/21/22 Catherine Cm MD [address] [place] [address]000 [place] [address] Assigned Heart and Vascular Provider 07/24/22 11/05/22 Johnny Murillo MD [address] [place] [address] Assigned Musculoskeletal Provider 08/14/22 10/08/22 Brea Quinn APRN UPSCALE SECURITY OFFICER [address] [place] [address] Nurse Practitioner Dermatology 09/21/22 Brea Quinn APRN UPSCALE SECURITY OFFICER [address] [place] [address] Assigned Surgical Provider 10/09/22 05/01/24 [place] [address] [place] [address] Assigned Musculoskeletal Provider 10/09/22 05/01/24 Livan Sharif MD [address] [facility] [address] [facility] [place] [address] Assigned Heart and Vascular Provider 11/06/22 11/12/22 Catherine Cm MD [address] [place] [address] Assigned Heart and Vascular Provider 11/13/22 05/27/23 Sydnie Martinez RN Personal Advocate & Liaison (PAL) Family Medicine 03/28/23 07/31/23 Alfonso Renteria MD [address] [facility] 200 [place] [address] Assigned Neuroscience Provider 04/02/23 09/29/24 Cheng Todd PA-C [address] [place] [address] [id number] Assigned PCP 04/30/23 07/15/23 Radha Lomeli APRN UPSCALE SECURITY OFFICER [address] [place] [address] Assigned Heart and Vascular Provider 05/28/23 11/29/24 Jelena David OD [address] [place] [address] Ophthalmology 06/15/23 Pao Joseph RN Personal Advocate & Liaison (PAL) Nurse 08/01/23 11/07/23 Esha Grimm PA-C [address] [place] [address] Assigned PCP 07/16/23 Valery Veronica PA-C [address] [place], [place] 2550[address] Physician Strategic Planning Director Dermatology 09/19/23 Rey Tay MD [address] [place] [address] Gastroenterology 09/20/23 Rocky Zepeda DO [address] [place] [address] Physician Gastroenterology 09/20/23 Philip Dumont MD [address] [place] [address] Physician Ophthalmology 09/22/23 Meredith Carrera PA-C [address] [place] [address] Assigned Gastroenterology Provider 11/01/23 Neil Kent MD [address] [address] Dermatology 11/02/23 [place] [address] [address] Neurological Surgery 12/26/23 Audrey Waite PA-C [address] [place] [address] Physician Strategic Planning Director Dermatology 02/28/24 Valery Veronica PA-C [id number] [address] [place] [address] Physician Strategic Planning Director Dermatology 04/10/24 Herminia Hatch MD [facility] [place] [address] Assigned Rheumatology Provider 07/02/24 Jelena David OD [address] [facility] [place] [address] Ophthalmology 08/30/24 [place] [address] [place] [address] Assigned Neuroscience Provider 09/30/24 Maru Man PA-C [address] [place] [address] 534920 Physician Strategic Planning Director Dermatology 10/03/24 Maru Man PA-C [address] [place] [address] Physician Strategic Planning Director Dermatology 10/22/24 Jelena David OD [address] [facility] [place] [address] Assigned Surgical Provider 10/31/24 Fabiano [place] NP [address] [place] [address] Assigned Heart and Vascular Provider 11/30/24 documented as of this encounter
--- OUTSIDE RECORDS SUMMARY | 2024-12-31 03:15 | XMS_ITS | Encounter Summary ---
Author Organization [place] Address [address] [place] [address] Care Team Providers Care Packing Room Inspector Name Role Phone Lita Oseguera Unavailable Unavailable Marija Edgar APRN QUALITY CONTROL MICROBIOLOGY SUPERVISOR Primary Care Provider + Marija Edgar APRN QUALITY CONTROL MICROBIOLOGY SUPERVISOR Unavailable [phone] Keisha Dotson MD Unavailable Galo Burrell MD Unavailable Unavailable Diana Desir [facility] Unavailable Rain Galaviz PA-C Unavailable Summer Lara MD Unavailable [phone] Tavia Wyatt MD Unavailable Johnny Murillo MD Unavailable Erica Farrell APRN QUALITY CONTROL MICROBIOLOGY SUPERVISOR Unavailable Tavia Wyatt MD Unavailable Diana Desir [facility] Unavailable Rich Barrett MD Unavailable [phone] Neil Kent MD Unavailable Roney Story DPM Unavailable Erica Farrell APRN QUALITY CONTROL MICROBIOLOGY SUPERVISOR Unavailable Diana Desir [facility] Unavailable [phone] Jelena David OD Unavailable [phone] Galo Burrell MD Unavailable Unavailable HoLivan MD Unavailable Livan Sharif MD Unavailable IsCatherine hobbs MD Unavailable + Valery Veronica PA-C Unavailable [phone] Catherine Cm MD Unavailable + Johnny Murillo MD Unavailable [phone] Brea Quinn RIG HAND QUALITY CONTROL MICROBIOLOGY SUPERVISOR Unavailable [phone] Brea Quinn RIG HAND QUALITY CONTROL MICROBIOLOGY SUPERVISOR Unavailable [phone] Jose Francisco Johnson MD Unavailable Livan Sharif MD Unavailable + IsCatherine boothe MD Unavailable + Sydnie Martinez RN Unavailable Unavailable Alfonso Renteria MD Unavailable Esha Grimm PA-C Primary Care Provider Cheng Todd PA-C Unavailable Radha Lomeli RIG HAND QUALITY CONTROL MICROBIOLOGY SUPERVISOR Unavailable [phone] Jelena David OD Unavailable Pao Joseph RN Unavailable Unavailable Esha Grimm PA-C Unavailable [phone] Valery Veronica PA-C Unavailable [phone] Rey Tay MD Unavailable Rocky Zepeda DO Unavailable Philip Dumont MD Unavailable [phone] Meredith Carrera PA-C Unavailable [phone] Neil Kent MD Unavailable Juan Pablo Emmanuel MD Unavailable Audrey WaiteC Unavailable [phone] Valery Veronica-C Unavailable Herminia Hatch MD Unavailable Jelena David OD Unavailable Juan Pablo Emmanuel MD Unavailable [phone] Maru Man PA-C Unavailable [phone] Maru Man PA-C Unavailable [phone] Jelena David OD Unavailable Fabiano Correa EDUCATION ADMINISTRATOR Unavailable [phone] Encounter Details Date Type Department Care Team (Late st Contact Info) Description 12/03/[address] [facility] [address] [place] [address] Keisha Dotson MD [address] [place] [id number] Social History Tobacco Use Types Packs/Day Years [...] How often do you attend scientologist or yazidi serv ices? Never 09/22/2021 Do [...] in a halfway (including now)? No 09/22/2021 Hamlet Depression Scale Answer Date Recorded Hamlet Depression Score 5 01/14/2021 Last EPDS Self Harm Result Not on file 01/14 Education Answer Date Recorded What is the highest level of school you have completed or the highest degree you have received? 12th grade 08/07/2020 Comments No Sex and Gender Information Value Date Recorded Sex Assigned at Female 03/02/2021 5:45 PM CDT Legal Sex Female 4:13 AM SPORTING GOODS SALESPERSON Gender Identity Female 03/02/2021 5:45 PM [...] Description 01/02/2025 1:10 PM CDT Ancillary Procedure [facility] [address] [place] [phone] Lauren Claudio PA-C [address] [place] [address] 01/17/2025 10:00 AM CDT Appointment [facility] Respiratory [address] [place] [phone] Lauren Claudio PA-C [address] [place] [address] 04/16/2025 11:00 AM CDT Virtual Visit [facility] [address] 4th [place] [phone] Meredith Carrera PA-C [address] [place] [address] documented as of this encounter Visit Diagnoses Not on filedocumented in this encounter Additional Health Concerns Infection Onset Date Last Indicated Resolved Time Rule Out COVID-19 12/18/2021 12/18/2021 12/19/2021 11:34 AM CDT Rule Out COVID-19 02/24/2022 02/24/2022 02/25/2022 1:08 PM CDT Rule Out COVID-19 04/26/2022 04/26/2022 04/26/2022 6:47 AM CDT Rule Out COVID-19 05/17/2022 05/17/2022 05/17/2022 10:20 PM SPORTING GOODS SALESPERSON Rule Out COVID-19 06/09/2022 06/09/2022 06/09/2022 9:35 AM SPORTING GOODS SALESPERSON COVID-19 06/09/2022 06/09/2022 06/30/2022 11:4 1 PM SPORTING GOODS SALESPERSON Rule Out COVID-19 11/10/2022 11/10/2022 11/11/2022 12:17 [...] as of this encounter Care Teams Packing Room Inspector Relationship Specialty Start Date End Date Marija Edgar APRN QUALITY CONTROL MICROBIOLOGY SUPERVISOR PCP - General Nurse Practitioner 04/30/20 04/14/23 Esha Grimm PA-C [address] [place] [address] PCP - General Family Medicine 05/04/23 Lita Oseguera Personal Advocate & Liaison (PAL) 02/28/20 03/27/23 Marija Edgar APRN QUALITY CONTROL MICROBIOLOGY SUPERVISOR Assigned PCP 06/08/20 04/29/23 Keisha Dotson MD [address] [place], [place] 95[address] Assigned Neuroscience Provider 06/04/20 04/01/23 Galo Burrell MD Assigned Heart and Vascular Provider 10/05/20 04/02/22 [facility] [address] [place] [address] Pharmacist Pharmacist 04/17/21 Rain Galaviz PA-C [address] [place] [address] [place] [address] Physician Plant Supervisor Dermatology 04/28/21 Summer Lara MD [address] [place] [address] Assigned OBGYN Provider 05/31/21 Tavia Wyatt MD [address] [place] [address] Dermatology 07/14/21 Johnny Murillo MD [facility] [place] [address] Assigned Musculoskeletal Provider 08/30/21 03/17/22 Erica Farrell APRN QUALITY CONTROL MICROBIOLOGY SUPERVISOR 6[address] [facility] [address] [place] [address] Nurse Practitioner Cardiovascular Disease 09/09/21 Tavia Wyatt MD [address] [place], [place] 986150 Assigned Surgical Provider 11/29/21 05/07/22 Diana Desir, [facility] [address] [place] [address] Assigned MTM Pharmacist 01/02/22 Rich Barrett MD [address] [place] [address] Physician Ophthalmology 01/21/22 Neil Kent MD 500 [place] [address] Dermatology 02/24/22 Roney Story DPM [address] [facility] [address] [place] [address] Assigned Musculoskeletal Provider 03/20/22 08/13/22 Erica Farrell APRN QUALITY CONTROL MICROBIOLOGY SUPERVISOR 1700 [place] [address] Assigned Heart and Vascular Provider 04/03/22 04/16/22 [facility] [address] [place] [address] Assigned MTM Pharmacist 04/07/22 Jelena David OD [address] [place] [address] Assigned Surgical Provider 05/08/22 10/08/22 Galo Burrell MD Assigned Heart and Vascular Provider 04/17/22 06/11/22 Livan Sharif MD [address] [place] [address] [place] [address] Cardiovascular Disease 05/14/22 Livan Sharif MD [address] [place] [address] [place] [address]6675 Assigned Heart and Vascular Provider 06/12/22 07/23/22 Catherine Cm MD [address] [facility] [address] [place] [address] Cardiovascular Disease 07/21/22 Valery Veronica, PA-C [address] [place] [address] Physician Plant Supervisor Dermatology 07/21/22 Catherine Cm MD [address] [place] [id number] [place] [address] Assigned Heart and Vascular Provider 07/24/22 11/05/22 Johnny Murillo MD [address] [place] [address] Assigned Musculoskeletal Provider 08/14/22 10/08/22 Brea Quinn APRN QUALITY CONTROL MICROBIOLOGY SUPERVISOR [address] [place] [address] Nurse Practitioner Dermatology 09/21/22 Brea Quinn APRN QUALITY CONTROL MICROBIOLOGY SUPERVISOR [address] [place] [address] [place] [address] Assigned Surgical Provider 10/09/22 05/01/24 [place] [address] [place] [address] [place] [address] Assigned Musculoskeletal Provider 10/09/22 05/01/24 Livan Sharif MD [address] [facility]00 [place] [address] Assigned Heart and Vascular Provider 11/06/22 11/12/22 Catherine Cm MD [address] [facility] [address] [place] [address] Assigned Heart and Vascular Provider 11/13/22 05/27/23 Sydnie Martinez RN Personal Advocate & Liaison (PAL) Family Medicine 03/28/23 07/31/23 Alfonso Renteria MD 5775 [facility] 200 [place] [address] Assigned Neuroscience Provider 04/02/23 09/29/24 Cheng Todd PA-C [address] [place] [address] [phone] Assigned PCP 04/30/23 07/15/23 Radha Lomeli APRN QUALITY CONTROL MICROBIOLOGY SUPERVISOR 6405 [facility] [address] [place] [address] Assigned Heart and Vascular Provider 05/28/23 11/29/24 Jelena David OD [address] [place] [address] Ophthalmology 06/15/23 Pao Joseph, VJ Personal Advocate & Liaison (PAL) Nurse 08/01/23 11/07/23 Esha Grimm PA-C [address] [place] [address] Assigned PCP 07/16/23 Valery Veronica PA-C [address] [place] [address] Physician Plant Supervisor Dermatology 09/19/23 Rey Tay MD [address] [place] [address] MD Gastroenterology 09/20/23 Rocky Zepeda DO [address] [place] [address] Physician Gastroenterology 09/20/23 Philip Dumont MD [address] [place] [address] Physician Ophthalmology 09/22/23 Meredith Carrera PA-C [address] [place] [address] Assigned Gastroenterology Provider 11/01/23 Neil Kent MD [address] [address] Dermatology 11/02/23 [place] [address] 919607 Neurological Surgery 12/26/23 Audrey Waite PA-C [address] [place] [address] Physician Plant Supervisor Dermatology 02/28/24 Valery Veronica PA-C 556633 [address], [place] [address] Physician Plant Supervisor Dermatology 04/10/24 Herminia Hatch MD [facility]5 [place], [place] [phone] Assigned Rheumatology Provider 07/02/24 Jelena David, SONJA [facility]5 [facility] [place] [address] Ophthalmology 08/30/24 [place] [address] [place] [address] Assigned Neuroscience Provider 09/30/24 Maru Man PA-C [address] [place] [address] Physician Plant Supervisor Dermatology 10/03/24 Maru Man PA-C [address] [place] [address] Physician Plant Supervisor Dermatology 10/22/24 Jelena David, SONJA [address] [place] [address] [place] [address] Assigned Surgical Provider 10/31/24 Fabiano Correa, EDUCATION ADMINISTRATOR [address] [place] [address] Assigned Heart and Vascular Provider 11/30/24 documented as of this encounter
--- OUTSIDE RECORDS SUMMARY | 2024-12-31 03:15 | XMS_ITS | Encounter Summary ---
Author Organization [place] Address [address] [place] [address] Care Team Providers Care Assembler Wet Wash Name Role Phone Lita Oseguera Unavailable Unavailable Marija Edgar APRN TITLE CHECKER Primary Care Provider + Marija Edgar APRN TITLE CHECKER Unavailable Keisha Dotson MD Unavailable [phone] Galo Burrell MD Unavailable Unavailable Diana Desir [facility] Unavailable aRin Galaviz PA-C Unavailable Summer Lara MD Unavailable [phone] Tavia Wyatt MD Unavailable Johnny Murillo MD Unavailable Erica Farrell APRN TITLE CHECKER Unavailable Tavia Wyatt MD Unavailable Diana Desir [facility] Unavailable Rich Barrett MD Unavailable [phone] Neil Kent MD Unavailable Roney Story DPM Unavailable Erica Farrell APRN TITLE CHECKER Unavailable Diana Desir [facility] Unavailable [phone] Jelena David OD Unavailable [phone] Galo Burrell MD Unavailable Unavailable HoLivan MD Unavailable Livan Sharif MD Unavailable IsCatherine hobbs MD Unavailable + Valery Veronica PA-C Unavailable [phone] Catherine Cm MD Unavailable + Johnny Murillo MD Unavailable [phone] Brea Quinn MAILING SECTION CLERK TITLE CHECKER Unavailable [phone] Brea Quinn MAILING SECTION CLERK TITLE CHECKER Unavailable [phone] Jose Francisco Johnson MD Unavailable Livan Sharif MD Unavailable + IsCatherine boothe MD Unavailable + Sydnie Martinez RN Unavailable Unavailable Alfonso Renteria MD Unavailable Esha Grimm PA-C Primary Care Provider Cheng Todd PA-C Unavailable Radha Lomeli MAILING SECTION CLERK TITLE CHECKER Unavailable [phone] Jelena David OD Unavailable Pao Joseph RN Unavailable Unavailable Esha Grimm PA-C Unavailable [phone] Valery Veronica PA-C Unavailable [phone] Rey Tay MD Unavailable Rocky Zepeda DO Unavailable Philip Dumont MD Unavailable [phone] Meredith Carrera PA-C Unavailable [phone] Neil Kent MD Unavailable Juan Pablo Emmanuel MD Unavailable [phone] Audrey Waite-C Unavailable [phone] Valery Veronica-C Unavailable [phone] Herminia Hatch MD Unavailable Jelena David OD Unavailable Juan Pablo Emmanuel MD Unavailable [phone] Maru Man PA-C Unavailable [phone] Maru Man PA-C Unavailable [phone] Jelena David OD Unavailable Fabiano Correa RIGHT OF WAY AGENT Unavailable [phone] Encounter Details Date Type Department Care Team (Late st Contact Info) Description 03/09/2022 MyC Medical Advice [address] [address] Abby Dye Social History Tobacco [...] How often do you attend advent or caodaism serv ices? Never 09/22/2021 Do [...] Answer Date Recorded PHQ-2 Score 2 12/18/2021 [facility] [...] in a usp (including now)? No 09/22/2021 Amity Depression Scale Answer Date Recorded Amity Depression Score 5 01/14/2021 Last EPDS Self Harm Result Not on file 01/14 Education Answer Date Recorded What is the highest level of school you have completed or the highest degree you have received? 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 Gender Identity Female 03/02/2021 5:45 PM [...] 1:10 PM CDT Ancillary Procedure [facility] [address] [place] [phone] Lauren Claudio PA-C [address] [place] [address] 01/17/2025 10:00 AM CDT Appointment [facility] Respiratory [address] [place] [address] Lauren Claudio PA-C [address] [place] [address] 04/16/2025 11:00 AM CDT Virtual Visit [facility] [address] 4th [place] [phone] Meredith Carrera PA-C [address] [place], [place] 576145 documented as of this encounter Visit Diagnoses Not on filedocumented in this encounter Additional Health Concerns Infection Onset Date Last Indicated Resolved Time Rule Out COVID-19 04/26/2022 04/26/2022 04/26/2022 6:47 AM CDT Rule Out COVID-19 05/17/2022 05/17/2022 05/17/2022 10:20 PM CHEMICAL TECHNICIAN Rule Out COVID-19 06/09/2022 06/09/2022 06/09/2022 9:35 AM CHEMICAL TECHNICIAN COVID-19 06/09/2022 06/09/2022 06/30/2022 11:4 1 PM CHEMICAL TECHNICIAN Rule Out COVID-19 11/10/2022 11/10/2022 11/11/2022 [...] as of this encounter Care Teams Assembler Wet Wash Relationship Specialty Start Date End Date Marija Edgar APRN TITLE CHECKER PCP - General Nurse Practitioner 04/30/20 04/14/23 Esha Grimm PA-C [address] [place] [phone] PCP - General Family Medicine 05/04/23 Lita Oseguera Personal Advocate & Liaison (PAL) 02/28/20 03/27/23 Marija Edgar APRN TITLE CHECKER Assigned PCP 06/08/20 04/29/23 Keisha Dotson MD [address] [place], [place] 747335 Assigned Neuroscience Provider 06/04/20 04/01/23 Galo Burrell MD Assigned Heart and Vascular Provider 10/05/20 04/02/22 Diana Desir, [facility] [address] [facility] [place], [place] [address] Pharmacist Pharmacist 04/17/21 Rain Galaviz PA-C [address] [place] [address] [facility] [place] [address] Physician Wing Commander Dermatology 04/28/21 Summer Lara MD [address] [place] [address] Assigned OBGYN Provider 05/31/21 2 Tavia Wyatt MD [address] [place] [address] Dermatology 07/14/21 Johnny Murillo MD [address] [facility] [address] [place], [place] 519894 Assigned Musculoskeletal Provider 08/30/21 03/17/22 Erica Farrell APRN TITLE CHECKER 6[address] [facility] [address] [place], [place] 9[address] Nurse Practitioner Cardiovascular Disease 09/09/21 Tavia Wyatt MD [address] [place], [place] 085080 Assigned Surgical Provider 11/29/21 05/07/22 Diana Desir, [facility] 30[address] [place] [address] Assigned MTM Pharmacist 01/02/22 Rich Barrett MD 30[address] [place] [address] Physician Ophthalmology 01/21/22 Neil Kent MD 500 [place] [address] Dermatology 02/24/22 Roney Story DPM [address] [facility] [address] [place] [address] Assigned Musculoskeletal Provider 03/20/22 08/13/22 Erica Farrell APRN TITLE CHECKER 1700 [place] [address] Assigned Heart and Vascular Provider 04/03/22 04/16/22 Diana Desir, [facility] [address] [place], [place] 581506 Assigned MTM Pharmacist 04/07/22 Jelena David OD [address] [facility] [place] [address] Assigned Surgical Provider 05/08/22 10/08/22 Galo Burrell MD Assigned Heart and Vascular Provider 04/17/22 06/11/22 Livan Sharif MD [address] [facility] [address] [place] [address] Cardiovascular Disease 05/14/22 Livan Sharif MD [address] [facility] [address] [place] [address] Assigned Heart and Vascular Provider 06/12/22 07/23/22 Catherine Cm MD [address] [facility] [address] [place] [address] Cardiovascular Disease 07/21/22 Valery Veronica, PA-C [address] [place] [address] Physician Wing Commander Dermatology 07/21/22 Catherine Cm MD [address] [facility] [place] [address] Assigned Heart and Vascular Provider 07/24/22 11/05/22 Johnny Murillo MD [address] [address] Assigned Musculoskeletal Provider 08/14/22 10/08/22 Brea Quinn APRN TITLE CHECKER [address] [place] [address] 932455 Nurse Practitioner Dermatology 09/21/22 Brea Quinn APRN TITLE CHECKER [address] [place] [address] Assigned Surgical Provider 10/09/22 05/01/24 [place] [address] [place] [address] [address] Assigned Musculoskeletal Provider 10/09/22 05/01/24 Livan Sharif MD [address] [facility] S [facility] [address] [place] [address] Assigned Heart and Vascular Provider 11/06/22 11/12/22 Catherine Cm MD [address] [facility] [place] [address]75 Assigned Heart and Vascular Provider 11/13/22 05/27/23 Sydnie Martinez, VJ Personal Advocate & Liaison (PAL) Family Medicine 03/28/23 07/31/23 Alfonso Renteria MD [address] [facility] [address] [place] [address] Assigned Neuroscience Provider 04/02/23 09/29/24 Cheng Todd PA-C [address] [place] [address] Assigned PCP 04/30/23 07/15/23 Radha Lomeli APRN TITLE CHECKER [address] [facility] [address] [place] [address] Assigned Heart and Vascular Provider 05/28/23 11/29/24 Jelena David OD [address] [facility] [place] [address] Ophthalmology 06/15/23 Pao Joseph, VJ Personal Advocate & Liaison (PAL) Nurse 08/01/23 11/07/23 Esha Grimm PA-C [address] [place] [address] Assigned PCP 07/16/23 Valery Veronica PA-C [address] [place] [address] 923185 Physician Wing Commander Dermatology 09/19/23 Rey Tay MD [address] [place] [address] Gastroenterology 09/20/23 Rocky Zepeda DO [address] [place] [address] Physician Gastroenterology 09/20/23 Philip Dumont MD [address] [place] [address] Physician Ophthalmology 09/22/23 Meredith Carrera PA-C [address] [place] [address] Assigned Gastroenterology Provider 11/01/23 Neil Kent MD [address] [address] MD Dermatology 11/02/23 [place] [address] [place] [address] Neurological Surgery 12/26/23 Audrey Waite PA-C [address] [place] [address] Physician Wing Commander Dermatology 02/28/24 Valery Veronica PA-C [address]29 [address] [place] [address] Physician Wing Commander Dermatology 04/10/24 Herminia Hatch MD [address] [place] [address] [id number] Assigned Rheumatology Provider 07/02/24 Jelena David OD [address] [place] [address] [place] [address] Ophthalmology 08/30/24 [place] [address] [place] [address] Assigned Neuroscience Provider 09/30/24 Maru Man PA-C [address] [place] [address] Physician Wing Commander Dermatology 10/03/24 Maru Man PA-C [address] [place] [address] Physician Wing Commander Dermatology 10/22/24 Jelena David OD [address] [facility] [place] [address] Assigned Surgical Provider 10/31/24 Fabiano Correa NP [address] [place] [address] Assigned Heart and Vascular Provider 11/30/24 documented as of this encounter
--- OUTSIDE RECORDS SUMMARY | 2024-12-31 03:15 | XMS_ITS | Encounter Summary ---
Author Organization [place] Address [address] [place] [address] Care Team Providers Care Small Business Representative Name Role Phone Diana Desir [facility] Unavailable Rain Galaviz PA-C Unavailable [phone] Tavia Wyatt MD Unavailable Erica Farrell APRN DAMAGE INSIDE ADJUSTER Unavailable Rich Barrett MD Unavailable [phone] Neil Kent MD Unavailable DesirDiana [facility] Unavailable Livan Sharif MD Unavailable Catherine Cm MD Unavailable + Valery Veronica PA-C Unavailable Brea Quinn APRN DAMAGE INSIDE ADJUSTER Unavailable Brea Quinn EMERGENCY RESPONSE COORDINATOR DAMAGE INSIDE ADJUSTER Unavailable [phone] Jose Francisco Johnson MD Unavailable Sydnie Martinez RN Unavailable Unavailable Alfonso Renteria MD Unavailable [phone] Esha Grimm PA-C Primary Care Provider Cheng Todd PA-C Unavailable Radha Lomeli APRN DAMAGE INSIDE ADJUSTER Unavailable Jelena David OD Unavailable Pao Joseph RN Unavailable Unavailable Esha Grimm Adam PA-C Unavailable [phone] Valery Veronica PA-C Unavailable Rey Tay MD Unavailable Rocky Zepeda DO Unavailable Philip Dumont MD Unavailable Meredith Carrera PA-C Unavailable Neil Kent MD Unavailable Juan Pablo Emmanuel MD Unavailable Audrey Waite PA-C Unavailable JeremíasValery damon PA-C Unavailable Herminia Hatch MD Unavailable Jelena David OD Unavailable [phone] Juan Pablo Emmanuel MD Unavailable Maru Man PA-C Unavailable Maru Man PA-C Unavailable Jelena David OD Unavailable Fabiano Correa NP Unavailable Encounter Details Date Type Department Care Team (Late st Contact Info) Description 06/15/2023 [facility] Medical Advice [facility] [address] [address] Doris Levi Social History Tobacco [...] do you attend [facility] or [facility]? 1 to 4 [...] Answer Date Recorded PHQ-2 Score 1 05/16/2023 [facility] of Occupat ional Health - Occupational Stress [...] exercise at this level? 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 Gender Identity Female 03/02/2021 5:45 PM CDT Sexual Orientation Straight 02/28/2020 12 :51 AM CDT documented as of this encounter Plan of Treatment Upcoming Encounters Date Type Department Care Team (Latest Contact Info) Description 01/02/2025 1:10 PM CDT Ancillary Procedure [facility] [address] [place] [phone] Lauren Claudio PA-C [address] [place] [address] 01/17/2025 10:00 AM CDT Appointment [facility]5 [place] [address] Lauren Claudio PA-C [address] [place] [address] 04/16/2025 11:00 AM CDT Virtual Visit [facility] [address] [phone] Meredith Carrera PA-C [address] [place] [address] documented as of this encounter Visit Diagnoses [...] Total Score: 6 05/16/20 23 9:29 AM GUN BARREL FINISHER documented as of this encounter Care Teams Small Business Representative Relationship Specialty Start Date End Date Esha Grimm PA-C [address] [place] [address] PCP - General Family Medicine 05/04/23 Diana Desir, [facility] [address] [place] [address] Pharmacist Pharmacist 04/17/21 Rain Galaviz PA-C [address] [place] [address] [address] [facility] [place] [address] Physician Director Of Group Sales Dermatology 04/28/21 Tavia Wyatt MD [address] [place] [address] [address] [facility] [place] [address] Dermatology 07/14/21 Erica Farrell APRN DAMAGE INSIDE ADJUSTER [address] [place], [place] 6397[address] Nurse Practitioner Cardiovascular Disease 09/09/21 Rich Barrett MD [address] [place] [address] Physician Ophthalmology 01/21/22 Neil Kent MD 500 [place], [place] 712265 Dermatology 02/24/22 Diana Desir, [facility] [address] [place] [address] Assigned MTM Pharmacist 04/07/22 Livan Sharif MD [address] [facility] [address] [place] [address] Cardiovascular Disease 05/14/22 Catherine Cm MD [address] [facility] [address] [place] [address] Cardiovascular Disease 07/21/22 Valery Veronica PA-C [address] [place] [address] 571695 Physician Director Of Group Sales Dermatology 07/21/22 Brea Quinn APRN DAMAGE INSIDE ADJUSTER [address] [place] [address] 996055 Nurse Practitioner Dermatology 09/21/22 Brea Quinn APRN DAMAGE INSIDE ADJUSTER 6401 [place], [place] 102522 Assigned Surgical Provider 10/09/22 05/01/24 [place] [address] [facility] 300 [place] [address] Assigned Musculoskeletal Provider 10/09/22 05/01/24 Sydnie Martinez RN Personal Advocate & Liaison (PAL) Family Medicine 03/28/23 07/31/23 Alfonso Renteria MD 5775 [facility] 200 [place], [place] 475916 Assigned Neuroscience Provider 04/02/23 09/29/24 Cheng Todd PA-C [address] [place] [address] [phone] Assigned PCP 04/30/23 07/15/23 Radha Lomeli APRN DAMAGE INSIDE ADJUSTER [address] [facility] [address] [place] [address] Assigned Heart and Vascular Provider 05/28/23 11/29/24 Jelena David OD [address] [facility] [place] [address] MD Ophthalmology 06/15/23 Pao Joseph, VJ Personal Advocate & Liaison (PAL) Nurse 08/01/23 11/07/23 Esha Grimm PA-C [address] [place] [phone] Assigned PCP 07/16/23 Valery Veronica PA-C [address] [place] [address] 012655 Physician Director Of Group Sales Dermatology 09/19/23 Rey Tay MD [address] [place] [address] 808055 Gastroenterology 09/20/23 Rocky Zepeda DO [address] [place] [address] Physician Gastroenterology 09/20/23 Philip Dumont MD [address] [place] [address] Physician Ophthalmology 09/22/23 Meredith Carrera PA-C [address]09 [place] [address] Assigned Gastroenterology Provider 11/01/23 Neil Kent MD [address] [place] [address] Dermatology 11/02/23 [place] [address] [place] [address] Neurological Surgery 12/26/23 Audrey Waite PA-C [address] [place] [address] Physician Director Of Group Sales Dermatology 02/28/24 Valery Veronica PA-C [id number] [address] [place] [address] Physician Director Of Group Sales Dermatology 04/10/24 Herminia Hatch MD [address] [place] [address] [phone] Assigned Rheumatology Provider 07/02/24 Jelena David OD [address] [place] [address] [place] [address] Ophthalmology 08/30/24 [place] [address] RAZO [facility][note 2] [place] [address] Assigned Neuroscience Provider 09/30/24 Maru Man PA-C [address] [place] [address] Physician Director Of Group Sales Dermatology 10/03/24 Maru Man PA-C [address] [place] [address] Physician Director Of Group Sales Dermatology 10/22/24 Jelena David OD [address] [facility] [place] [address] Assigned Surgical Provider 10/31/24 Fabiano Correa NP [address] [place] [address] Assigned Heart and Vascular Provider 11/30/24 documented as of this encounter
--- OUTSIDE RECORDS SUMMARY | 2024-12-31 03:15 | XMS_ITS | Encounter Summary ---
Author Organization [place] Address [address] [place] [address] Care Team Providers Care Sewing Machine Adjuster Name Role Phone Lita Oseguera Unavailable Unavailable Marija Edgar APRN CRIME SCENE ANALYST Primary Care Provider + Chanelle Mccann APRN CNM Unavailab le Kyara De La Fuente RN Unavailable [phone] Marija Edgar APRN CRIME SCENE ANALYST Unavailable Mynor Broussard MD Unavailable [phone] Keisha Dotson MD Unavailable [phone] Stacey Briones FIFTH HAND Unavailable Lesley Guillermo CHW Unavailable Mary Mejia Unavailable Unavailable iLta Oseguera Unavailable Unavailable Galo Burrell MD Unavailable Unavailable Cristina Wood Unavailable Lesley Guillermo CHW Unavailable Meredith Bedoya Unavailable Unavailable Cristina Wood Unavailable Diana Desir [facility] Unavailable Rain Galaviz PA-C Unavailable Summer Lara MD Unavailable [phone] Summer Lara MD Unavailable [phone] Summer Lara MD Unavailable [phone] Tavia Wyatt MD Unavailable [phone] Johnny Murillo MD Unavailable [phone] Erica Farrell WORM PICKER CRIME SCENE ANALYST Unavailable Vikas Teresitakaren Watson [facility] Unavailable Tavia Wyatt MD Unavailable [phone] Diana Desir [facility] Unavailable [phone] Rich Barrett MD Unavailable Neil Kent MD Unavailable Roney StoryM Unavailable Erica Farrell WORM PICKER CRIME SCENE ANALYST Unavailable Diana Desir [facility] Unavailable [phone] Jelena David OD Unavailable [phone] Galo Burrell MD Unavailable Unavailable Livan Sharif MD Unavailable Livan Sharif MD Unavailable Catherine Cm MD Unavailable + Valery Veronica PA-C Unavailable [phone] Catherine Cm MD Unavailable + Johnny Murillo MD Unavailable +[phone] Brea Quinn APRN CRIME SCENE ANALYST Unavailable [phone] Brea Quinn APRN CRIME SCENE ANALYST Unavailable [phone] Jose Francisco Johnson MD Unavailable Livan Sharif MD Unavailable + Catherine Cm MD Unavailable + Sydnie Martinez RN Unavailable Unavailable Alfonso Renteria MD Unavailable [phone] Esha Grimm PA-C Primary Care Provider Perez Chengjc Fish PA-C Unavailable Armani Radha Stovall ARLENE GRANADOS Unavailable Jelena David OD Unavailable Pao Joseph RN Unavailable Unavailable Esha Grimm PA-C Unavailable [phone] Valery Veronica PA-C Unavailable Rey Tay [...] Contact Info) Description 08/24/2020 [facility] Medical Advice [address] [address] Marija Edgar APRN [facility] [address] [facility] [place] [address] Social History Tobacco Use Types Packs/Day [...] 08/12/2020 [facility] of Occupat [...] PM CDT Legal Sex Female 4:13 AM RESUME SPECIALIST Gender Identity Female 03/02/2021 5:45 PM CDT Sexual Orientation Straight 02/28/2020 12 :51 AM CDT COVID-19 Exposure Response Date Recorded In the last month, have you been in contact with someone who was confirmed or suspected to have Coronavirus / COVID-19? No / Unsure 08/20/2020 12:47 PM RESUME SPECIALIST documented as of this encounter Miscellaneous Notes * Telephone Encounter - Marija Edgar APRN CNP - 08/25/2020 11:47 AM RESUME SPECIALIST Replied via MyChart Marija Edgar APRN CNP on 08/25/2020 at 11:51 AM ME SPECIALIST documented in this encounter Plan of Treatment Upcoming Encounters Date Type Department Care Team (Latest Contact Info) Description 01/02/2025 1:10 PM CDT Ancillary Procedure [address] [phone] Lauren Claudio PA-C [address] [place] [address] 01/17/2025 10:00 AM CDT Appointment [facility] Respiratory [address] [place] [phone] Lauren Claudio PA-C [address] [place], [place] [phone] 04/16/2025 11:00 AM CDT Virtual Visit [facility] [address] [place] [phone] Meredith Carrera PA-C [address] [place] [address] documented as of this encounter Visit Diagnoses Not on filedocumented in this encounter Additional Health Concerns Infection Onset Date Last Indicated Resolved Time Rule Out COVID-19 08/30/2020 08/30/2020 08/30/2020 5:05 PM RESUME SPECIALIST Rule Out COVID-19 09/24/2020 09/24/2020 09/24/2020 9:24 AM CDT Rule Out COVID-19 11/05/2020 11/05/2020 11/06/2020 1:09 PM CDT Rule Out COVID-19 05/11/2021 05/11/2021 05/13/2021 10:18 AM CDT Rule Out COVID-19 07/13/2021 07/13/2021 07/14/2021 3:04 PM RESUME SPECIALIST Rule Out COVID-19 07/18/2021 07/18/2021 07/20/2021 1:56 PM RESUME SPECIALIST COVID-19 07/18/2021 07/18/2021 08/08/2021 11:3 9 PM RESUME SPECIALIST Rule Out COVID-19 12/18/2021 12/18/2021 12/19/2021 11:34 AM CDT Rule Out COVID-19 02/24/2022 02/24/2022 02/25/2022 1:08 PM CDT Rule Out COVID-19 04/26/2022 04/26/2022 04/26/2022 6:47 AM CDT Rule Out COVID-19 05/17/2022 05/17/2022 05/17/2022 10:20 PM RESUME SPECIALIST Rule Out COVID-19 06/09/2022 06/09/2022 06/09/2022 9:35 AM RESUME SPECIALIST COVID-19 06/09/2022 06/09/2022 06/30/2022 11:4 1 PM RESUME SPECIALIST Rule Out COVID-19 11/10/2022 11/10/2022 11/11/2022 [...] Total Score: 9 06/25/20 20 7:04 AM RESUME SPECIALIST documented as of this encounter Care Teams Sewing Machine Adjuster Relationship Specialty Start Date End Date Marija Edgar APRN CRIME SCENE ANALYST PCP - General Nurse Practitioner 04/30/20 04/14/23 Esha Grimm PA-C [address] [place] [phone] PCP - General Family Medicine 05/04/23 Lita Oseguera Personal Advocate & Liaison (PAL) 02/28/20 03/27/23 Chanelle Mccann APRN CNM [address] [address] Assigned OBGYN Provider 05/02/2005/09 Kyara De La Fuente, RN Specialty Cartridge Assembling Machine Adjuster Neurology 06/04/20 03/05/21 Marija Edgar APRN CRIME SCENE ANALYST Assigned PCP 06/08/20 04/29/23 Mynor Broussard MD [address] [place] [address] Assigned Surgical Provider 06/01/20 11/28/21 Keisha [place] MD 909 [place], [place] 389985 Assigned Neuroscience Provider 06/04/20 04/01/23 Stacey Briones, [facility] Lead Cartridge Assembling Machine Adjuster Primary Care - CC 08/11/2012/30 Lesley [...] 02/09/21 Diana Desir, [facility] [address] [place] [address] Pharmacist Pharmacist 04/17/21 Rain Galaviz PA-C [address] [place] [address] [address] [place] [address] Physician Color Maker Formulator Dermatology 04/28/21 Summer Lara MD [address] [place] [address] Assigned OBGYN Provider 05/10/2105/23 Summer Lara MD [address] [place] [address] Assigned OBGYN Provider 05/31/21 Summer Lara MD [address] [place] [address] Assigned OBGYN Provider 05/24/2105/30 Tavia Wyatt MD [address] [place] [address] Dermatology 07/14/21 Johnny Murillo MD [facility] [address] [facility] [address] [place] [address] Assigned Musculoskeletal Provider 08/30/21 03/17/22 Erica Farrell APRN CRIME SCENE ANALYST [address] [facility] [address] [place] [address] Nurse Practitioner Cardiovascular Disease 09/09/21 Teresita Bean, [facility] [address] [place] [address] Pharmacist Pharmacist 09/24/21 09/29/21 Tavia Wyatt MD [address] [place] [address] Assigned Surgical Provider 11/29/21 05/07/22 Diana Desir [facility] [address] [place] [address] Assigned MTM Pharmacist 01/02/22 Rich Barrett MD [address] [place] [address] Physician Ophthalmology 01/21/22 Neil Kent MD [address] [place] [address] Dermatology 02/24/22 Roney Story DPM [address] [facility] [address] [place] [address] Assigned Musculoskeletal Provider 03/20/22 08/13/22 Erica Farrell APRN CRIME SCENE ANALYST [facility] [place] [address] Assigned Heart and Vascular Provider 04/03/22 04/16/22 Diana Desir [facility] [address] [place] [address] Assigned MTM Pharmacist 04/07/22 Jelena David OD [address] [place] [address] [place] [address] Assigned Surgical Provider 05/08/22 10/08/22 Galo Burrell MD Assigned Heart and Vascular Provider 04/17/22 06/11/22 Livan Sharif MD [address] [place] [address] Cardiovascular Disease 05/14/22 Livan Sharif MD [address] [place] [address] Assigned Heart and Vascular Provider 06/12/22 07/23/22 Catherine Cm MD [address] [place] 151695 Cardiovascular Disease 07/21/22 Valery Veronica, PA-C [address] [place] [address] 746025 Physician Color Maker Formulator Dermatology 07/21/22 Catherine Cm MD [address] [place] 400285 Assigned Heart and Vascular Provider 07/24/22 11/05/22 Johnny Murillo MD [address] [place] [address] [phone] Assigned Musculoskeletal Provider 08/14/22 10/08/22 Brea Quinn APRN CRIME SCENE ANALYST [address] [place] [address] 704415 Nurse Practitioner Dermatology 09/21/22 Brea Quinn APRN CRIME SCENE ANALYST [address] [place] [address] [place] 034272 Assigned Surgical Provider 10/09/22 05/01/24 [place] [address] [place] [address] Assigned Musculoskeletal Provider 10/09/22 05/01/24 Livan Sharif MD [address] [place] [address] Assigned Heart and Vascular Provider 11/06/22 11/12/22 Catherine Cm MD [address] [place] [address] Assigned Heart and Vascular Provider 11/13/22 05/27/23 Sydnie Martinez RN Personal Advocate & Liaison (PAL) Family Medicine 03/28/23 07/31/23 Alfonso Renteria MD 5775 [facility] 200 [place] [address] Assigned Neuroscience Provider 04/02/23 09/29/24 Cheng Todd PA-C [address] [place] [address] [phone] Assigned PCP 04/30/23 07/15/23 Radha Lomeli APRN CRIME SCENE ANALYST [address] [place] [address] Assigned Heart and Vascular Provider 05/28/23 11/29/24 Jelena David OD [address] [facility] [place] [address] MD Ophthalmology 06/15/23 Pao Joseph, RN Personal Advocate & Liaison (PAL) Nurse 08/01/23 11/07/23 Esha Grimm PA-C [address] [place] [address] Assigned PCP 07/16/23 Valery Veronica PA-C [address] [place] [address] 336045 Physician Color Maker Formulator Dermatology 09/19/23 Rey Tay MD [address] [place] [address] 955015 MD Gastroenterology 09/20/23 Rocky Zepeda DO [address] [place] [address] 547945 Physician Gastroenterology 09/20/23 Philip Dumont MD [address] [place] [address] 480435 Physician Ophthalmology 09/22/23 Meredith Carrera PA-C [address] [place] [address] 780305 Assigned Gastroenterology Provider 11/01/23 Neil Kent MD [address] [place] [address] 145940 Dermatology 11/02/23 [place] [address] [place] [address] Neurological Surgery 12/26/23 Audrey Waite PA-C 500 [place] [address] Physician Color Maker Formulator Dermatology 02/28/24 Valery Veronica PA-C [address] [place] [address] Physician Color Maker Formulator Dermatology 04/10/24 Herminia Hatch MD [address] [place] [address] [phone] Assigned Rheumatology Provider 07/02/24 Jelena David, SONJA [address] [place] [address] [place] [address] Ophthalmology 08/30/24 [place] [address] [place] [address] Assigned Neuroscience Provider 09/30/24 Maru Man PA-C [address] [place] [address] Physician Color Maker Formulator Dermatology 10/03/24 Maru Man PA-C [address] [place] [address] Physician Color Maker Formulator Dermatology 10/22/24 Jelena David OD [address] [place] [address] [place] [address] Assigned Surgical Provider 10/31/24 Fabiano Correa, MARKETING ENGINEER [address] [place] [place] [address] Assigned Heart and Vascular Provider 11/30/24 documented as of this encounter
--- OUTSIDE RECORDS SUMMARY | 2024-12-31 03:15 | XMS_ITS | Patient Health Record ---
Author Organization [facility] Address [address] [facility] 550 [place] [address] Care Team Providers Care Social Sciences Chair Name Role Phone Romario ACEVEDO, Yanely Unavailable [phone] Reason For Referral No Information Plan Of Treatment No Information Insurance Providers Payer Name Payer Address Payer Phone Subscriber Number Group Number Insured Name Patient Relationship to Insured Coverage Start Date Coverage End Date [facility] [address] [address] [place] [address] [id number] Austin Johnson Child - Insured has Financial Responsibility 7
--- OUTSIDE RECORDS SUMMARY | 2024-12-31 03:15 | XMS_ITS | Encounter Summary ---
Author Organization [facility] Address [address] [place] [address] Care Team Providers Care Assembler Watch Train Name Role Phone Lita Oseguera Unavailable Unavailable Marija Edgar APRN SWIMMING POOL MAINTENANCE Primary Care Provider + Chanelle Mccann APRN CNM Unavailab le Kyara De La Fuente RN Unavailable [phone] Marija Edgar APRN SWIMMING POOL MAINTENANCE Unavailable Mynor Broussard MD Unavailable Keisha Dotson MD Unavailable Mary Mejia Unavailable Unavailable Stacey Briones DIATHERMY EQUIPMENT REPAIRER Unavailable [phone] Lesley Guillermo CHW Unavailable Mary Mejia Unavailable Unavailable Lita Oseguera Unavailable Unavailable Galo Burrell MD Unavailable Unavailable Cristina Wood Unavailable Lesley Guillermo CHW Unavailable Meredith Bedoya Unavailable Unavailable Cristina Wood Unavailable Diana Desir [facility] Unavailable Ruhland, Rain Lena PA-C Unavailable Summer Lara MD Unavailable [phone] Summer Lara MD Unavailable [phone] Summer Lara MD Unavailable [phone] Tavia Wyatt MD Unavailable [phone] Johnny Murillo MD Unavailable [phone] Erica Farrell APRN SWIMMING POOL MAINTENANCE Unavailable VikasTeresita H Unavailable Tavia Wyatt MD Unavailable [phone] Diana Desir [facility] Unavailable [phone] Rich Barrett MD Unavailable [phone] Neil Kent MD Unavailable Roney Story [facility] Unavailable Erica Farrell APRN SWIMMING POOL MAINTENANCE Unavailable Diana Desir [facility] Unavailable [phone] Jelena David OD Unavailable Galo Burrell MD Unavailable Unavailable Livan Sharif MD Unavailable Livan Sharif MD Unavailable Catherine Cm MD Unavailable + Valery Veronica PA-C Unavailable [phone] Catherine Cm MD Unavailable + Johnny Murillo MD Unavailable [phone] Brea Quinn APRN SWIMMING POOL MAINTENANCE Unavailable [phone] Brea Quinn STAGE SETTING PAINTER APPRENTICE SWIMMING POOL MAINTENANCE Unavailable [phone] Jose Francisco Johnson MD Unavailable Livan Sharif MD Unavailable Catherine Cm MD Unavailable + Sydnie Martinez RN Unavailable Unavailable Alfonso Renteria MD Unavailable [phone] Esha Grimm PA-C Primary Care Provider Cheng Todd PA-C Unavailable Radha Lomeli APRN, CNP Unavailable Jelena David OD Unavailable Pao Joseph RN Unavailable Unavailable Esha Grimm PA-C Unavailable [phone] Valery Veronica PA-C Unavailable Rey Tay MD Unavailable Rocky Zepeda DO Unavailable Philip Dumont MD Unavailable Meredith Carrera PA-C Unavailable Neil Kent MD Unavailable Juan Pablo mEmanuel MD Unavailable Audrey Waite PA-C Unavailable Valery Veronica PA-C Unavailable Herminia Hatch MD Unavailable Jelena David OD Unavailable Juan Pablo Emmanuel MD Unavailable Maru Man PA-C Unavailable Maru Man PA-C Unavailable Jelena David OD Unavailable Fabiano Correa NP Unavailable Encounter Details Date Type Department Care Team (Late st Contact Info) Description 07/29/2020 MyC Medical Advice [facility] [address], [address] [place] [phone] Keisha Dotson MD [address] [place] [address] Social History Tobacco Use Types Packs/Day Years [...] PM CDT Legal Sex Female 4:13 AM LOSS PREVENTION MANAGER Gender Identity Female 03/02/2021 5:45 PM CDT Sexual Orientation Straight 02/28/2020 12 :51 AM CDT COVID-19 Exposure Response Date Recorded In the last month, have you been in contact with someone who was confirmed or suspected to have Coronavirus / COVID-19? No / Unsure 07/30/2020 4:53 PM LOSS PREVENTION MANAGER documented as of this encounter Plan of Treatment Upcoming Encounters Date Type Department Care Team (Latest Contact Info) Description 01/02/2025 1:10 PM CDT Ancillary Procedure [address] [phone] Lauren Claudio PA-C [address] [place] [address] 01/17/2025 10:00 AM CDT Appointment [facility] [address] [place] [phone] Lauren Claudio PA-C [address] [place] [address] 04/16/2025 11:00 AM CDT Virtual Visit [facility] [address] [place] [address] Meredith Carrera PA-C [address] [place] [address] documented as of this encounter Visit Diagnoses Not on filedocumented in this encounter Additional Health Concerns Infection Onset Date Last Indicated Resolved Time Rule Out COVID-19 07/30/2020 07/30/2020 07/30/2020 7:11 PM LOSS PREVENTION MANAGER Rule Out COVID-19 08/30/2020 08/30/2020 08/30/2020 5:05 PM LOSS PREVENTION MANAGER Rule Out COVID-19 09/24/2020 09/24/2020 09/24/2020 9:24 AM CDT Rule Out COVID-19 11/05/2020 11/05/2020 11/06/2020 1:09 PM CDT Rule Out COVID-19 05/11/2021 05/11/2021 05/13/2021 10:18 AM CDT Rule Out COVID-19 07/13/2021 07/13/2021 07/14/2021 3:04 PM LOSS PREVENTION MANAGER Rule Out COVID-19 07/18/2021 07/18/2021 07/20/2021 1:56 PM LOSS PREVENTION MANAGER COVID-19 07/18/2021 07/18/2021 08/08/2021 11:3 9 PM LOSS PREVENTION MANAGER Rule Out COVID-19 12/18/2021 12/18/2021 12/19/2021 11:34 AM CDT Rule Out COVID-19 02/24/2022 02/24/2022 02/25/2022 1:08 PM CDT Rule Out COVID-19 04/26/2022 04/26/2022 04/26/2022 6:47 AM CDT Rule Out COVID-19 05/17/2022 05/17/2022 05/17/2022 10:20 PM LOSS PREVENTION MANAGER Rule Out COVID-19 06/09/2022 06/09/2022 06/09/2022 9:35 AM LOSS PREVENTION MANAGER COVID-19 06/09/2022 06/09/2022 06/30/2022 11:4 1 PM LOSS PREVENTION MANAGER Rule Out COVID-19 11/10/2022 11/10/2022 11/11/2022 [...] Total Score: 9 06/25/20 20 7:04 AM LOSS PREVENTION MANAGER documented as of this encounter Care Teams Assembler Watch Train Relationship Specialty Start Date End Date Marija Edgar APRN SWIMMING POOL MAINTENANCE PCP - General Nurse Practitioner 04/30/20 04/14/23 Esha Grimm PA-C [address] [place] [phone] PCP - General Family Medicine 05/04/23 Lita Oseguera Personal Advocate & Liaison (PAL) 02/28/20 03/27/23 Chanelle Mccann APRN CNM [address] [place] [address] Assigned OBGYN Provider 05/02/2005/09 Kyara De La Fuente, RN Specialty Sweatband Shaper Neurology 06/04/20 03/05/21 Marija Edgar APRN CNP Assigned PCP 06/08/20 04/29/23 Mynor Broussard MD [address] 204[address] Assigned Surgical Provider 06/01/20 11/28/21 Keisha Dotson MD [address] [place], [place] 9583[address] Assigned Neuroscience Provider 06/04/20 04/01/23 Mary Mejia Financial Resource Worker 08/07/20 08/21/20 Stacey Briones, [facility] Lead Sweatband Shaper Primary Care - CC 08/11/2012/30 Lesley Guillermo, [...] Financial Resource Worker 02/09/21 02/09/21 [facility] [address] [place] [address] Pharmacist Pharmacist 04/17/21 Rain Galaviz PA-C [address] [place] [address] [place] [address] Physician Machine Biller Dermatology 04/28/21 Summer Lara MD [address] [place] [address] [place], [place] [phone] Assigned OBGYN Provider 05/10/2105/23 Summer Lara MD [address] [place] [address] Assigned OBGYN Provider 05/31/21 Summer Lara MD [address] [place] [address] [place], [place] 259004 Assigned OBGYN Provider 05/24/2105/30 Tavia Wyatt MD [address] [place], [place] 956584 Dermatology 07/14/21 Johnny Murillo MD [address] [place] [address] Assigned Musculoskeletal Provider 08/30/21 03/17/22 Erica Farrell APRN SWIMMING POOL MAINTENANCE [address] [facility] [address] [place] [address] Nurse Practitioner Cardiovascular Disease 09/09/21 Teresita Bean [facility] [address] [place] [address] Pharmacist Pharmacist 09/24/21 09/29/21 Tavia Wyatt MD [address] [place] [address] Assigned Surgical Provider 11/29/21 05/07/22 Diana Desir, [facility] [place] [address] Assigned MTM Pharmacist 01/02/22 Rich Barrett MD [facility] [place] [address] Physician Ophthalmology 01/21/22 Neil Kent MD [address] [place], [place] 8069[address] Dermatology 02/24/22 Roney Story DPM [address] [facility] [address] [place] [address] Assigned Musculoskeletal Provider 03/20/22 08/13/22 Erica Farrell APRN SWIMMING POOL MAINTENANCE [address] [place] [address] Assigned Heart and Vascular Provider 04/03/22 04/16/22 Diana Desir, [facility] [place] [address] Assigned MTM Pharmacist 04/07/22 [place] David OD [address] [facility] [place] [address] Assigned Surgical Provider 05/08/22 10/08/22 Galo Burrell MD Assigned Heart and Vascular Provider 04/17/22 06/11/22 Livna Sharif MD [address] [place] [address] Cardiovascular Disease 05/14/22 Livan Sharif MD [address] [place] [address] Assigned Heart and Vascular Provider 06/12/22 07/23/22 Catherine Cm MD [address] [place] [address] Cardiovascular Disease 07/21/22 Valery Veronica, PA-C [address] [place] [address] Physician Machine Biller Dermatology 07/21/22 Catherine Cm MD [address] [place] [address] Assigned Heart and Vascular Provider 07/24/22 11/05/22 Johnny Murillo MD [facility] [address] Assigned Musculoskeletal Provider 08/14/22 10/08/22 Brea Quinn APRN SWIMMING POOL MAINTENANCE [address] [place] [address] Nurse Practitioner Dermatology 09/21/22 Brea Quinn APRN SWIMMING POOL MAINTENANCE [address] [facility] [place] [address] Assigned Surgical Provider 10/09/22 05/01/24 [place] [address] [place] [address] Assigned Musculoskeletal Provider 10/09/22 05/01/24 Livan Sharif MD [address] [place] [address] Assigned Heart and Vascular Provider 11/06/22 11/12/22 Catherine Cm MD [address] [facility] [address] [place] [address] Assigned Heart and Vascular Provider 11/13/22 05/27/23 Sydnie Martinez RN Personal Advocate & Liaison (PAL) Family Medicine 03/28/23 07/31/23 Alfonso Renteria MD [address] [facility] [address] [place] [address] Assigned Neuroscience Provider 04/02/23 09/29/24 Cheng Todd PA-C [address] [place] [address] Assigned PCP 04/30/23 07/15/23 Radha Lomeli APRN SWIMMING POOL MAINTENANCE [address] [place] [address] Assigned Heart and Vascular Provider 05/28/23 11/29/24 [place] David OD [address] [facility] [place] [address] MD Ophthalmology 06/15/23 Pao Joseph, VJ Personal Advocate & Liaison (PAL) Nurse 08/01/23 11/07/23 Esha Grimm PA-C [address] [place] [phone] Assigned PCP 07/16/23 Valery Veronica PA-C [address] [place] [address] 944665 Physician Machine Biller Dermatology 09/19/23 Rey Tay MD [address] [place] [address] 073485 Gastroenterology 09/20/23 Rocky Zepeda DO [address] [place] [address] 083855 Physician Gastroenterology 09/20/23 Philip Dumont MD [address] [place] [address] Physician Ophthalmology 09/22/23 Meredith Carrera PA-C [address] [place] [address] Assigned Gastroenterology Provider 11/01/23 Neil Kent MD [address] [address] Dermatology 11/02/23 [place] [address] [place] [address] Neurological Surgery 12/26/23 Audrey Waite PA-C [address] [place] [address] Physician Machine Biller Dermatology 02/28/24 Valery Veronica PA-C 012713 [place] [address] Physician Machine Biller Dermatology 04/10/24 Herminia Hatch MD [address] [place] [address] Assigned Rheumatology Provider 07/02/24 Jelena David OD [address] [place] [address] [place] [address] Ophthalmology 08/30/24 [place] [address] [place] [address] Assigned Neuroscience Provider 09/30/24 Maru Man PA-C [address] [place] [address] Physician Machine Biller Dermatology 10/03/24 Maru Man PA-C [address] [place] [address] Physician Machine Biller Dermatology 10/22/24 Jelena David OD [address] [facility] [place] [address] Assigned Surgical Provider 10/31/24 Fabiano Correa NP [address] [place] [address] Assigned Heart and Vascular Provider 11/30/24 documented as of this encounter
--- OUTSIDE RECORDS SUMMARY | 2024-12-31 03:15 | XMS_ITS | Encounter Summary ---
Author Organization [facility] Address [address] [place] [address] Care Team Providers Care Chief Risk Officer Name Role Phone Lita Oseguera Unavailable Unavailable Marija Edgar APRN CREDIT COMPLIANCE OFFICER Primary Care Provider + Chanelle Mccann APRN CNM Unavailab le Kyara De La Fuente RN Unavailable [phone] Marija Edgar APRN CREDIT COMPLIANCE OFFICER Unavailable Mynor Broussard MD Unavailable [phone] Keisha Dotson MD Unavailable Stacey Briones CONTINUOUS MINING MACHINE COAL MINER Unavailable Lesley Guillermo CHW Unavailable Mary Mejia Unavailable Unavailable Lita Oseguera Unavailable Unavailable Galo Burrell MD Unavailable Unavailable Cristina Wood Unavailable Lesley Guillermo CHW Unavailable Meredith Bedoya Unavailable Unavailable Cristina Wood Unavailable Diana Desir [facility] Unavailable [phone] Rain Galaviz PA-C Unavailable Summer Lara MD Unavailable [phone] Summer Lara MD Unavailable [phone] Summer Lara MD Unavailable [phone] Tavia Wyatt MD Unavailable [phone] Johnny Murillo MD Unavailable [phone] Erica Farrell DISPATCHER RELAY CREDIT COMPLIANCE OFFICER Unavailable Vikas Teresitakaren Watson [facility] Unavailable Tavia Wyatt MD Unavailable [phone] Diana Desir [facility] Unavailable [phone] Rich Barrett MD Unavailable Neil Kent MD Unavailable Roney StoryM Unavailable Erica Farrell DISPATCHER RELAY CREDIT COMPLIANCE OFFICER Unavailable Diana Desir [facility] Unavailable [phone] Jelena David OD Unavailable [phone] Galo Burrell MD Unavailable Unavailable Livan Sharif MD Unavailable Livan Sharif MD Unavailable Catherine Cm MD Unavailable + Valery Veronica PA-C Unavailable [phone] Catherine Cm MD Unavailable + Johnny Murillo MD Unavailable +[phone] Brea Quinn APRN CREDIT COMPLIANCE OFFICER Unavailable [phone] Brea Quinn APRN CREDIT COMPLIANCE OFFICER Unavailable [phone] Jose Francisco Johnson MD Unavailable Livan Sharif MD Unavailable + Catherine Cm MD Unavailable + Sydnie Martinez RN Unavailable Unavailable Alfonso Renteria MD Unavailable [phone] Esha Grimm PA-C Primary Care Provider Perez Chengjc Fish PA-C Unavailable Armani Radha Stovall ARLENE GRANADOS Unavailable Jelena David OD Unavailable Pao Joseph RN Unavailable Unavailable Esha Grimm PA-C Unavailable [phone] Valery Veronica PA-C Unavailable Rey Tay MD Unavailable Rocky Zepeda DO Unavailable Philip Dumont MD Unavailable Meredith Carrera PA-C Unavailable Neil Kent MD Unavailable Juan Pablo Emmanuel MD Unavailable Audrey Waite PA-C Unavailable Valery Veronica PA-C Unavailable Herminia Hatch MD Unavailable Jelena David OD Unavailable [phone] Juan Pablo Emmanuel MD Unavailable Maru Man PA-C Unavailable Maru Man PA-C Unavailable Jelena David OD Unavailable Fabiano Correa NP Unavailable Encounter Details Date Type Department Care Team (Late st Contact Info) Description 09/02/2020 [facility] [address] [place] [address] Mary Mejia Social History Tobacco Use Types [...] Recorded PHQ-2 Score 0 08/12/2020 [facility] [...] CDT Legal Sex Female 4:13 AM SERVICE ELECTRICIAN Gender Identity Female 03/02/2021 5:45 PM CDT Sexual Orientation Straight 02/28/2020 12 :51 AM CDT COVID-19 Exposure Response Date Recorded In the last month, have you been in contact with someone who was confirmed or suspected to have Coronavirus / COVID-19? No / Unsure 09/05/2020 2:50 PM SERVICE ELECTRICIAN documented as of this encounter Plan of Treatment Upcoming Encounters Date Type Department Care Team (Latest Contact Info) Description 01/02/2025 1:10 PM CDT Ancillary Procedure [facility] [address] [place] [phone] Lauren Claudio PA-C [id number] [place] [address] 01/17/2025 10:00 AM CDT Appointment [facility] Respiratory [facility]5 [place] [address] Lauren Claudio PA-C [address] [place] [address] 04/16/2025 11:00 AM CDT Virtual Visit [facility] [address] [phone] Meredith Carrera PA-C [address] [place] [address] documented as of this encounter Visit Diagnoses Not on filedocumented in this encounter Additional Health Concerns Infection Onset Date Last Indicated Resolved Time Rule Out COVID-19 09/24/2020 09/24/2020 09/24/2020 9:24 AM CDT Rule Out COVID-19 11/05/2020 11/05/2020 11/06/2020 1:09 PM CDT Rule Out COVID-19 05/11/2021 05/11/2021 05/13/2021 10:18 AM CDT Rule Out COVID-19 07/13/2021 07/13/2021 07/14/2021 3:04 PM SERVICE ELECTRICIAN Rule Out COVID-19 07/18/2021 07/18/2021 07/20/2021 1:56 PM SERVICE ELECTRICIAN COVID-19 07/18/2021 07/18/2021 08/08/2021 11:3 9 PM SERVICE ELECTRICIAN Rule Out COVID-19 12/18/2021 12/18/2021 12/19/2021 11:34 AM CDT Rule Out COVID-19 02/24/2022 02/24/2022 02/25/2022 1:08 PM CDT Rule Out COVID-19 04/26/2022 04/26/2022 04/26/2022 6:47 AM CDT Rule Out COVID-19 05/17/2022 05/17/2022 05/17/2022 10:20 PM SERVICE ELECTRICIAN Rule Out COVID-19 06/09/2022 06/09/2022 06/09/2022 9:35 AM SERVICE ELECTRICIAN COVID-19 06/09/2022 06/09/2022 06/30/2022 11:4 1 PM SERVICE ELECTRICIAN Rule Out COVID-19 11/10/2022 11/10/2022 11/11/2022 12:17 [...] Total Score: 9 06/25/20 20 7:04 AM SERVICE ELECTRICIAN documented as of this encounter Care Teams Chief Risk Officer Relationship Specialty Start Date End Date Marija Edgar APRN CREDIT COMPLIANCE OFFICER PCP - General Nurse Practitioner 04/30/20 04/14/23 Esha Grimm PA-C [address] [place] [phone] PCP - General Family Medicine 05/04/23 Lita Oseguera Personal Advocate & Liaison (PAL) 02/28/20 03/27/23 Chanelle Mccann APRN CNM 13892 [facility] 200 [place] [address] Assigned OBGYN Provider 05/02/2005/09 Kyara De La Fuente, RN Specialty Steam Cleaning Machine Operator Neurology 06/04/20 03/05/21 Marija Edgar APRN CREDIT COMPLIANCE OFFICER Assigned PCP 06/08/20 04/29/23 Mynor Broussard MD 6[address] [facility] 500 [place] [address] Assigned Surgical Provider 06/01/20 11/28/21 Keisha Dotson MD 909 [place] [address] Assigned Neuroscience Provider 06/04/20 04/01/23 Stacey Briones, CONTINUOUS MINING MACHINE COAL MINER Lead Steam Cleaning Machine Operator Primary Care - CC 08/11/2012/30 Lesley Guillermo, [facility] Community Health Worker 08/11/2010/01 JackieMary Financial Resource Worker 09/02/20 10/06/20 Lita Oseguera [...] 02/09/21 Diana Desir, [facility] [address] [facility] [place], [place] [address] Pharmacist Pharmacist 04/17/21 Rain Galaviz PA-C [address] [place] [address] [address] [place], [place] [phone] Physician Marshmallow Runner Dermatology 04/28/21 Summer Lara MD [address] [place] [address] 556634 Assigned OBGYN Provider 05/10/2105/23 Summer Lara MD [address] [place] [address] [phone] Assigned OBGYN Provider 05/31/21 2 Summer Lara MD [address] [address] Assigned OBGYN Provider 05/24/2105/30 Tavia Wyatt MD [address] [place] [address] Dermatology 07/14/21 Johnny Murillo MD [address] [place] [address] Assigned Musculoskeletal Provider 08/30/21 03/17/22 Erica Farrell APRN CREDIT COMPLIANCE OFFICER [address] [facility] [address] [place] [address] Nurse Practitioner Cardiovascular Disease 09/09/21 [facility] [address] [place], [place] [phone] Pharmacist Pharmacist 09/24/21 09/29/21 Tavia Wyatt MD [address] [place], [place] 410410 Assigned Surgical Provider 11/29/21 05/07/22 [facility] [address] [place] [address] Assigned MTM Pharmacist 01/02/22 Rich Barrett MD 3033 [place] [address] Physician Ophthalmology 01/21/22 Neil Kent MD 500 [place] [address] Dermatology 02/24/22 Roney Story DPM [address] [facility] [address] [place] [address] Assigned Musculoskeletal Provider 03/20/22 08/13/22 Erica Farrell APRN CREDIT COMPLIANCE OFFICER 1700 [place] [address] Assigned Heart and Vascular Provider 04/03/22 04/16/22 Diana Desir, [facility] [address] [place] [address] Assigned MTM Pharmacist 04/07/22 Jelena David OD [address] [facility] [place] [address] Assigned Surgical Provider 05/08/22 10/08/22 Galo Burrell MD Assigned Heart and Vascular Provider 04/17/22 06/11/22 Livan Sharif MD [address] [place] [address] [place] [address] Cardiovascular Disease 05/14/22 Livan Sharif MD [address] [place] [address] [place] 059335 Assigned Heart and Vascular Provider 06/12/22 07/23/22 Catherine Cm MD [address] [place] [address] [place] 685825 Cardiovascular Disease 07/21/22 Valery Veronica, PAUcheC 909 [place] [address] Physician Marshmallow Runner Dermatology 07/21/22 Catherine Cm MD [address] [address] Assigned Heart and Vascular Provider 07/24/22 11/05/22 Johnny Murillo MD [address] [place] [address] Assigned Musculoskeletal Provider 08/14/22 10/08/22 Brea Qiunn APRN CREDIT COMPLIANCE OFFICER [address] [place] [address] Nurse Practitioner Dermatology 09/21/22 Brea Quinn APRN CREDIT COMPLIANCE OFFICER [address] [place] [address] Assigned Surgical Provider 10/09/22 05/01/24 [place] [address] [address] Assigned Musculoskeletal Provider 10/09/22 05/01/24 Livan Sharif MD [address] [place] [place] [address] [place] [address] Assigned Heart and Vascular Provider 11/06/22 11/12/22 Catherine Cm MD [address] [address] [place] [address] Assigned Heart and Vascular Provider 11/13/22 05/27/23 Sydnie Martinez RN Personal Advocate & Liaison (PAL) Family Medicine 03/28/23 07/31/23 Alfonso Renteria MD 5775 [facility] 200 [place] [address] Assigned Neuroscience Provider 04/02/23 09/29/24 Cheng Todd PA-C [address] [place] [address] [phone] Assigned PCP 04/30/23 07/15/23 Radha Lomeli APRN CREDIT COMPLIANCE OFFICER [address] [place] [address] Assigned Heart and Vascular Provider 05/28/23 11/29/24 Jelena David OD [address] [facility] [place] [address] Ophthalmology 06/15/23 Pao Joseph RN Personal Advocate & Liaison (PAL) Nurse 08/01/23 11/07/23 Esha Grimm PA-C [address] [place] [address] Assigned PCP 07/16/23 Valery Veronica PA-C 909 [place] [address] Physician Marshmallow Runner Dermatology 09/19/23 Rey Tay MD [address] [place] [address] MD Gastroenterology 09/20/23 Rocky Zepeda DO [address] [place] [address] Physician Gastroenterology 09/20/23 Philip Dumont MD [address] [place] [address] Physician Ophthalmology 09/22/23 Meredith Carrera PA-C [address] [place] [address] Assigned Gastroenterology Provider 11/01/23 Neil Kent MD [address] [place] [address] MD Dermatology 11/02/23 [place] [address] [address] Neurological Surgery 12/26/23 Audrey Waite PA-C [address] [place] [address] Physician Marshmallow Runner Dermatology 02/28/24 Valery Veroinca PA-C [address] [place] [address] Physician Marshmallow Runner Dermatology 04/10/24 Herminia Hatch MD [address] [place] [address] [phone] Assigned Rheumatology Provider 07/02/24 Jelena David, SONJA [address] [facility] [place] [address] Ophthalmology 08/30/24 [place] [address] [facility] [place] [address] Assigned Neuroscience Provider 09/30/24 Maru Man PA-C [address] [place] [address] Physician Marshmallow Runner Dermatology 10/03/24 Maru Man PA-C [address] [place] [address] Physician Marshmallow Runner Dermatology 10/22/24 Jelena David, SONJA [address] [facility] [place] [address] Assigned Surgical Provider 10/31/24 Fabiano Correa NP [address] [place] [address] Assigned Heart and Vascular Provider 11/30/24 documented as of this encounter
--- OUTSIDE RECORDS SUMMARY | 2024-12-31 03:15 | XMS_ITS | Encounter Summary ---
Author Organization [facility] Address [address] [place] [address] Care Team Providers Care Cake Washer Name Role Phone Lita Oseguera Unavailable Unavailable Marija Edgar APRN SUPERVISOR TRAVEL TRAILER Primary Care Provider + Marija Edgar APRN SUPERVISOR TRAVEL TRAILER Unavailable Keisha Dotson MD Unavailable Galo Burrell MD Unavailable Unavailable Diana Desir [facility] Unavailable Rain Galaviz PA-C Unavailable Summer Lara MD Unavailable Tavia Wyatt MD Unavailable Johnny Murillo MD Unavailable Erica Farrell APRN SUPERVISOR TRAVEL TRAILER Unavailable Tavia Wyatt MD Unavailable Diana Desir [facility] Unavailable Rich Barrett MD Unavailable [phone] Neil Kent MD Unavailable Roney Story DPM Unavailable Erica Farrell APRN SUPERVISOR TRAVEL TRAILER Unavailable Diana Desir [facility] Unavailable [phone] Jelena David OD Unavailable [phone] Galo Burrell MD Unavailable Unavailable HoLivan MD Unavailable Livan Sharif MD Unavailable IsCatherine hobbs MD Unavailable + Valery Veronica PA-C Unavailable [phone] Catherine Cm MD Unavailable + Johnny Murillo MD Unavailable [phone] Brea Quinn WOODEN TANK ERECTOR SUPERVISOR TRAVEL TRAILER Unavailable [phone] Brea Quinn WOODEN TANK ERECTOR SUPERVISOR TRAVEL TRAILER Unavailable [phone] Jose Francisco Johnson MD Unavailable Livan Sharif MD Unavailable + IsCatherine boothe MD Unavailable + Sydnie Martinez RN Unavailable Unavailable Alfonso Renteria MD Unavailable Esha Grimm PA-C Primary Care Provider Cheng Todd PA-C Unavailable Radha Lomeli WOODEN TANK ERECTOR SUPERVISOR TRAVEL TRAILER Unavailable [phone] Jelena David OD Unavailable Pao Joseph RN Unavailable Unavailable Esha Grimm PA-C Unavailable [phone] Valery Veronica PA-C Unavailable [phone] Rey Tay MD Unavailable Rocky Zepeda DO Unavailable Philip Dumont MD Unavailable [phone] Meerdith Carrera PA-C Unavailable [phone] Neil Kent MD Unavailable Juan Pablo Emmanuel MD Unavailable [phone] Audrey WaiteC Unavailable [phone] Valery VeronicaC Unavailable [phone] Herminia Hatch MD Unavailable Jelena David OD Unavailable Juan Pablo Emmanuel MD Unavailable [phone] Maru Man PA-C Unavailable [phone] Maru Man PA-C Unavailable [phone] Jelena David OD Unavailable Fabiano Correa NP Unavailable [phone] Encounter Details Date Type Department Care Team (Late st Contact Info) Description 01/22/2022 MyC Medical Advice [address] [address] [address] Social History Tobacco Use Types Packs/Day Years [...] How often do you attend buddhist or nondenominational serv ices? Never 09/22/2021 Do [...] in a halfway (including now)? No 09/22/2021 [place] Depression Scale Answer Date Recorded [place] Depression Score 5 01/14/2021 Last EPDS Self Harm Result Not on file 01/14 Education Answer Date Recorded What is the highest level of school you have completed or the highest degree you have received? 12th grade 08/07/2020 Comments No Sex and Gender Information Value Date Recorded Sex Assigned at Female 03/02/2021 5:45 PM CDT Legal Sex Female 4:13 AM ORGANIZATIONAL CONSULTANT Gender Identity Female 03/02/2021 5:45 PM [...] Description 01/02/2025 1:10 PM CDT Ancillary Procedure [facility] [address] [place] [phone] Lauren Claudio PA-C [address] [place] [address] 01/17/2025 10:00 AM CDT Appointment [facility] Respiratory [address] [place] [phone] Lauren Claudio PA-C [address] [place] [address] 04/16/2025 11:00 AM CDT Virtual Visit [facility] [address] 4th [place] [phone] Meredith Carrera PA-C [address] [place] [address] documented as of this encounter Visit Diagnoses Not on filedocumented in this encounter Additional Health Concerns Infection Onset Date Last Indicated Resolved Time Rule Out COVID-19 02/24/2022 02/24/2022 02/25/2022 1:08 PM CDT Rule Out COVID-19 04/26/2022 04/26/2022 04/26/2022 6:47 AM CDT Rule Out COVID-19 05/17/2022 05/17/2022 05/17/2022 10:20 PM ORGANIZATIONAL CONSULTANT Rule Out COVID-19 06/09/2022 06/09/2022 06/09/2022 9:35 AM ORGANIZATIONAL CONSULTANT COVID-19 06/09/2022 06/09/2022 06/30/2022 11:4 1 PM ORGANIZATIONAL CONSULTANT Rule Out COVID-19 11/10/2022 11/10/2022 11/11/2022 [...] as of this encounter Care Teams Cake Washer Relationship Specialty Start Date End Date Marija Edgar APRN SUPERVISOR TRAVEL TRAILER PCP - General Nurse Practitioner 04/30/20 04/14/23 Esha Grimm PA-C [address] [place] [phone] PCP - General Family Medicine 05/04/23 Lita Oseguera Personal Advocate & Liaison (PAL) 02/28/20 03/27/23 Marija Edgar APRN SUPERVISOR TRAVEL TRAILER Assigned PCP 06/08/20 04/29/23 Keisha Dotson MD 909 [place], [place] 830845 Assigned Neuroscience Provider 06/04/20 04/01/23 Galo Burrell MD Assigned Heart and Vascular Provider 10/05/20 04/02/22 Diana Desir, [facility] 30[address] [place], [place] [phone] Pharmacist Pharmacist 04/17/21 Rain Galaviz PA-C [address] [place] [address] [place] [address] Physician Chargemaster Analyst Dermatology 04/28/21 Summer Lara MD [address] [place] [address] 823674 Assigned OBGYN Provider 05/31/21 Tavia Wyatt MD [address] [place] [address] 426424 Dermatology 07/14/21 Johnny Murillo MD [address] [place], [place] 513304 Assigned Musculoskeletal Provider 08/30/21 03/17/22 Erica Farrell APRN SUPERVISOR TRAVEL TRAILER 6405 [facility] [address] [place], [place] 047555 Nurse Practitioner Cardiovascular Disease 09/09/21 Tavia Wyatt MD [address] [place], [place] 109290 Assigned Surgical Provider 11/29/21 05/07/22 Diana Desir, [facility] 30[address] [place] [address] Assigned MTM Pharmacist 01/02/22 Rich Barrett MD [address] [place] [address] Physician Ophthalmology 01/21/22 Neil Kent MD 500 [place] [address] Dermatology 02/24/22 Roney Story DPM [address] [facility] [address] [place] [address] Assigned Musculoskeletal Provider 03/20/22 08/13/22 Erica Farrell APRN SUPERVISOR TRAVEL TRAILER 1700 [place] [address] Assigned Heart and Vascular Provider 04/03/22 04/16/22 Diana Desir, [facility] [address] [place], [place] 738026 Assigned MTM Pharmacist 04/07/22 [place] David OD [address] [place] [address] Assigned Surgical Provider 05/08/22 10/08/22 Galo Burrell MD Assigned Heart and Vascular Provider 04/17/22 06/11/22 Livan Sharif MD [address] [place] [address] [place] [address] Cardiovascular Disease 05/14/22 Livan Sharif MD [address] [place] [address] [place] [address] Assigned Heart and Vascular Provider 06/12/22 07/23/22 Catherine Cm MD [address] [place] [address] [place] [address] Cardiovascular Disease 07/21/22 Valery Veronica PA-C [address] [place] [address] Physician Chargemaster Analyst Dermatology 07/21/22 Catherine Cm MD 6405 [facility] [address] [place] [address] Assigned Heart and Vascular Provider 07/24/22 11/05/22 Johnny Murillo MD [address] [place] [address] Assigned Musculoskeletal Provider 08/14/22 10/08/22 Brea Quinn APRN SUPERVISOR TRAVEL TRAILER [address] [place] [address] 865125 Nurse Practitioner Dermatology 09/21/22 Brea Quinn APRN SUPERVISOR TRAVEL TRAILER [address] [place] [address] Assigned Surgical Provider 10/09/22 05/01/24 [place] [address] [place] [address] Assigned Musculoskeletal Provider 10/09/22 05/01/24 Livan Sharif MD [address] [facility] [place] [address] [place] [address] Assigned Heart and Vascular Provider 11/06/22 11/12/22 Catherine Cm MD [address] [address] [place] [address] Assigned Heart and Vascular Provider 11/13/22 05/27/23 Sydnie Martinez RN Personal Advocate & Liaison (PAL) Family Medicine 03/28/23 07/31/23 Alfonso Renteria MD 5775 [facility] 200 [place] [address] Assigned Neuroscience Provider 04/02/23 09/29/24 Cheng Todd PA-C [address] [place] [address] [phone] Assigned PCP 04/30/23 07/15/23 Radha Lomeli APRN SUPERVISOR TRAVEL TRAILER [address] [place] [address] Assigned Heart and Vascular Provider 05/28/23 11/29/24 Jelena David OD [address] [place] [address] Ophthalmology 06/15/23 Pao Joseph, VJ Personal Advocate & Liaison (PAL) Nurse 08/01/23 11/07/23 Esha Grimm PA-C [address] [place] [address] Assigned PCP 07/16/23 Valery Veronica PA-C [address]09 [place], [place] 452315 Physician Chargemaster Analyst Dermatology 09/19/23 Rey Tay MD [address] [place] [address] MD Gastroenterology 09/20/23 Evans ZepedauaDO [address] [place] [address] Physician Gastroenterology 09/20/23 Philip Dumont MD [address] [place] [address] Physician Ophthalmology 09/22/23 Meredith Carrera PA-C [address] [place] [address] Assigned Gastroenterology Provider 11/01/23 Neil Kent MD [address] [address] Dermatology 11/02/23 [place] [address] [address] [facility] [place] [address] Neurological Surgery 12/26/23 Audrey Waite PA-C [address] [place] [address] Physician Chargemaster Analyst Dermatology 02/28/24 Valery Veronica PA-C 095572 [place], [place] [address] Physician Chargemaster Analyst Dermatology 04/10/24 Herminia Hatch MD [address] [place] [address] Assigned Rheumatology Provider 07/02/24 J[place]ena David OD [address] [facility] [place] [address] Ophthalmology 08/30/24 [place] [address] [place] [address] Assigned Neuroscience Provider 09/30/24 Maru Man PA-C [address] [place] [address] Physician Chargemaster Analyst Dermatology 10/03/24 Maru Man PA-C [address] [place] [address] Physician Chargemaster Analyst Dermatology 10/22/24 Jelena David OD [address] [facility] [place] [address] Assigned Surgical Provider 10/31/24 Fabiano Correa NP [address] [place] [address] Assigned Heart and Vascular Provider 11/30/24 documented as of this encounter
--- OUTSIDE RECORDS SUMMARY | 2024-12-31 03:15 | XMS_ITS | Encounter Summary ---
Author Organization [facility] Address [address] [place] [address] Care Team Providers Care Clinical Trials Assistant Name Role Phone Lita Oseguera Unavailable Unavailable Marija Edgar APRN ANTIQUE REPAIRER Primary Care Provider + Chanelle Mccann APRN CNM Unavailab le Kyara De La Fuente RN Unavailable [phone] Marija Edgar APRN ANTIQUE REPAIRER Unavailable Mynor Broussard MD Unavailable [phone] Keisha Dotson MD Unavailable Mary Mejia Unavailable Unavailable Stacey Briones CUSTOM APPLICATOR Unavailable Lesley Guillermo CHW Unavailable Mary Mejia Unavailable Unavailable Lita Oseguera Unavailable Unavailable Galo Burrell MD Unavailable Unavailable Cristina Wood Unavailable Lesley Guillermo CHW Unavailable Meredith Bedoya Unavailable Unavailable Cristina Wood Unavailable Diana Desir [facility] Unavailable [phone] [place], Rain Lena PA-C Unavailable Summer Lara MD Unavailable [phone] Summer Lara MD Unavailable [phone] Summer Lara MD Unavailable [phone] Tavia Wyatt MD Unavailable [phone] Johnny Murillo MD Unavailable [phone] Erica Farrell APRN ANTIQUE REPAIRER Unavailable VikasTeresita H Unavailable Tavia Wyatt MD Unavailable [phone] Diana Desir [facility] Unavailable [phone] Rich Barrett MD Unavailable [phone] Neil Kent MD Unavailable Roney Story [facility] Unavailable Erica Farrell APRN ANTIQUE REPAIRER Unavailable Diana Desir [facility] Unavailable [phone] Jelena David OD Unavailable [phone] Galo Burrell MD Unavailable Unavailable Livan Sharif MD Unavailable Livan Sharif MD Unavailable Catherine Cm MD Unavailable + Valery Veronica PA-C Unavailable [phone] Catherine Cm MD Unavailable + Johnny Murillo MD Unavailable [phone] Brea Quinn APRN ANTIQUE REPAIRER Unavailable [phone] Brea Quinn STAFF NURSE ANTIQUE REPAIRER Unavailable [phone] Jose Francisco Johnson MD Unavailable Livan Sharif MD Unavailable Catherine Cm MD Unavailable + Sydnie Martinez RN Unavailable Unavailable Alfonso Renteria MD Unavailable [phone] Esha Grimm PA-C Primary Care Provider Cheng Todd PA-C Unavailable Radha Lomeli APRN, CNP Unavailable Jelena David OD Unavailable Pao Joseph RN Unavailable Unavailable Esha Grimm PA-C Unavailable [phone] Valery Veronica PA-C Unavailable Rey Tay [...] Contact Info) Description 08/07/2020 MyC Medical Advice [facility] Care Coordination [facility] [address] [place] [address] Lesley Guillermo, [facility] Social History Tobacco Use Types [...] week 08/07/2020 How often [facility] services? More than 4 times [...] Answer Date Recorded PHQ-2 Score 3 06/24/2020 [facility] of Occupat ional [facility] - Occupational Stress Questionnaire Answer [...] CDT Legal Sex Female 4:13 AM MARKETING AUTOMATION ANALYST Gender Identity Female 03/02/2021 5:45 PM CDT Sexual Orientation Straight 02/28/2020 12 :51 AM CDT COVID-19 Exposure Response Date Recorded In the last month, have you been in contact with someone who was confirmed or suspected to have Coronavirus / COVID-19? No / Unsure 08/06/2020 2:03 PM MARKETING AUTOMATION ANALYST documented as of this encounter Functional Status documented as of this encounter Plan of Treatment Upcoming Encounters Date Type Department Care Team (Latest Contact Info) Description 01/02/2025 1:10 PM CDT Ancillary Procedure [address] [phone] Lauren Claudio PA-C [address] [place] [address] 01/17/2025 10:00 AM CDT Appointment [facility] Respiratory [address] [place] [phone] Lauren Claudio PA-C [address] [place] [address] 04/16/2025 11:00 AM CDT Virtual Visit [facility] [address] [place] [phone] Meredith Carrera PA-C [address] [place] [address] documented as of this encounter Visit Diagnoses Not on filedocumented in this encounter Additional Health Concerns Infection Onset Date Last Indicated Resolved Time Rule Out COVID-19 08/30/2020 08/30/2020 08/30/2020 5:05 PM MARKETING AUTOMATION ANALYST Rule Out COVID-19 09/24/2020 09/24/2020 09/24/2020 9:24 AM CDT Rule Out COVID-19 11/05/2020 11/05/2020 11/06/2020 1:09 PM CDT Rule Out COVID-19 05/11/2021 05/11/2021 05/13/2021 10:18 AM CDT Rule Out COVID-19 07/13/2021 07/13/2021 07/14/2021 3:04 PM MARKETING AUTOMATION ANALYST Rule Out COVID-19 07/18/2021 07/18/2021 07/20/2021 1:56 PM MARKETING AUTOMATION ANALYST COVID-19 07/18/2021 07/18/2021 08/08/2021 11:3 9 PM MARKETING AUTOMATION ANALYST Rule Out COVID-19 12/18/2021 12/18/2021 12/19/2021 11:34 AM CDT Rule Out COVID-19 02/24/2022 02/24/2022 02/25/2022 1:08 PM CDT Rule Out COVID-19 04/26/2022 04/26/2022 04/26/2022 6:47 AM CDT Rule Out COVID-19 05/17/2022 05/17/2022 05/17/2022 10:20 PM MARKETING AUTOMATION ANALYST Rule Out COVID-19 06/09/2022 06/09/2022 06/09/2022 9:35 AM MARKETING AUTOMATION ANALYST COVID-19 06/09/2022 06/09/2022 06/30/2022 11:4 1 PM MARKETING AUTOMATION ANALYST Rule Out COVID-19 11/10/2022 11/10/2022 11/11/2022 [...] Depression Total Score: 9 06/25/20 7:04 AM MARKETING AUTOMATION ANALYST documented as of this encounter Care Teams Clinical Trials Assistant Relationship Specialty Start Date End Date Marija Edgar APRN ANTIQUE REPAIRER PCP - General Nurse Practitioner 04/30/20 04/14/23 Esha Grimm PA-C [address] [place] [phone] PCP - General Family Medicine 05/04/23 Lita Oseguera Personal Advocate & Liaison (PAL) 02/28/20 03/27/23 Chanelle Mccann APRN CNAdam [address] [address] [address] [place], [place] [address] Assigned OBGYN Provider 05/02/2005/09 Kyara De La Fuente, RN Specialty [facility] 06/04/20 03/05/21 Marija Edgar APRN ANTIQUE REPAIRER Assigned PCP 06/08/20 04/29/23 Mynor Broussard MD [address] [facility] [address] [place], [place] [phone] Assigned Surgical Provider 06/01/20 11/28/21 Keisha Dotson MD [address] [place] [address] Assigned Neuroscience Provider 06/04/20 04/01/23 Mary Mejia Financial Resource Worker 08/07/20 08/21/20 Stacey Briones, [facility] Lead [facility] - CC 08/11/2012/30 Lesley Guillermo, [facility] Community Health Worker 08/11/2010/01 Aditi Mejiandra Financial Resource Worker 09/02/20 10/06/20 Lita Oseguera Personal Advocate & Liaison (PAL) Family Medicine 09/10/20 09/21/20 Galo Burrell MD Assigned Heart and Vascular Provider 10/05/20 04/02/22 Cristina Wood Financial Resource Worker 10/07/20 10/14/20 Lesley Guillermo, [facility] Community Health Worker 10/23/2012/30 Meredith Bedoya Financial Resource Worker 10/23/20 11/23/20 Cristina Wood Financial Resource Worker 02/09/21 02/09/21 Diana Desir, [facility] [address] [place] [address] Pharmacist Pharmacist 04/17/21 Rain Galaviz PA-C [address] [place] [address] [facility] [address] Physician Sales Enablement Specialist Dermatology 04/28/21 Summer Lara MD [address] [place] [address] Assigned OBGYN Provider 05/10/2105/23 Summer Lara MD [address] [place] [address] Assigned OBGYN Provider 05/31/21 Summer Lara MD [address] [place] [address] Assigned OBGYN Provider 05/24/2105/30 Tavia Wyatt MD [address] [place] [address] Dermatology 07/14/21 Johnny Murillo MD [address] [place] [address] Assigned Musculoskeletal Provider 08/30/21 03/17/22 Erica Farrell APRN ANTIQUE REPAIRER [address] [facility] [address] [place], [place] [phone] Nurse Practitioner Cardiovascular Disease 09/09/21 Teresita Bean, [facility] [address] [place] [phone] Pharmacist Pharmacist 09/24/21 09/29/21 Tavia Wyatt MD [address] [place], [place] [phone] Assigned Surgical Provider 11/29/21 05/07/22 Diana Desir, [facility] [address] [place] [address] Assigned MTM Pharmacist 01/02/22 Rich Brarett MD [address] [place] [address] Physician Ophthalmology 01/21/22 Neil Kent MD [address] [place], [place] [address] Dermatology 02/24/22 Roney Story DPM [address] [facility] [address] [place], [place] [address] Assigned Musculoskeletal Provider 03/20/22 08/13/22 Erica Farrell APRN ANTIQUE REPAIRER [address] [place] [address] Assigned Heart and Vascular Provider 04/03/22 04/16/22 [facility] [address] [place] [address] Assigned MTM Pharmacist 04/07/22 Jelena David OD [address] [facility] [address] Assigned Surgical Provider 05/08/22 10/08/22 Galo Burrell MD Assigned Heart and Vascular Provider 04/17/22 06/11/22 Livan Sharif MD [address] [place] [address] Cardiovascular Disease 05/14/22 Livan Sharif MD [address] [place] [address] Assigned Heart and Vascular Provider 06/12/22 07/23/22 Catherine Cm MD [address] [facility] [address] [place] [address] Cardiovascular Disease 07/21/22 Valery Veronica, PA-C [address] [place] [address] Physician Sales Enablement Specialist Dermatology 07/21/22 Catherine Cm MD [address] [facility] [address] [place] [address] Assigned Heart and Vascular Provider 07/24/22 11/05/22 Johnny Murillo MD [address] [place] [address] Assigned Musculoskeletal Provider 08/14/22 10/08/22 Brea Quinn APRN ANTIQUE REPAIRER [address] [place] [address] [phone] Nurse Practitioner Dermatology 09/21/22 Brea Quinn APRN ANTIQUE REPAIRER [address] [place] [address] [place] [address] Assigned Surgical Provider 10/09/22 05/01/24 [place] [address] [place] [address] Assigned Musculoskeletal Provider 10/09/22 05/01/24 Livan Sharif MD [address] [place], [place] [phone] Assigned Heart and Vascular Provider 11/06/22 11/12/22 Catherine Cm MD [address] [place] [address] Assigned Heart and Vascular Provider 11/13/22 05/27/23 Sydnie Martinez RN Personal Advocate & Liaison (PAL) Family Medicine 03/28/23 07/31/23 Alfonso Renteria MD [address] [facility] [address] [place] [address] Assigned Neuroscience Provider 04/02/23 09/29/24 Cheng Todd PA-C [address] [place] [address] [phone] Assigned PCP 04/30/23 07/15/23 Radha Lomeli APRN ANTIQUE REPAIRER [address] [place] [address] Assigned Heart and Vascular Provider 05/28/23 11/29/24 Jelena David OD [address] [facility] [address] Ophthalmology 06/15/23 Pao Joseph, VJ Personal Advocate & Liaison (PAL) Nurse 08/01/23 11/07/23 Esha Grimm PA-C [address] [place] [phone] Assigned PCP 07/16/23 Valery Veronica PA-C [address] [place] [address] Physician Sales Enablement Specialist Dermatology 09/19/23 Rey Tay MD [address] [place] [address] MD Gastroenterology 09/20/23 Rocky Zepeda DO [address] [place] [address] 558365 Physician Gastroenterology 09/20/23 Philip Dumont MD [address] [place] [address] Physician Ophthalmology 09/22/23 Meredith Carrera PA-C [address] [place] [address] Assigned Gastroenterology Provider 11/01/23 Neil Knet MD [address] [place] [address] Dermatology 11/02/23 [place] [address] [place] [address] [address] Neurological Surgery 12/26/23 Audrey Waite PA-C [address] [place] [address] Physician Sales Enablement Specialist Dermatology 02/28/24 Valery Veronica PA-C [id number] [place] [address] Physician Sales Enablement Specialist Dermatology 04/10/24 Herminia Hatch MD [address] [place] [address] Assigned Rheumatology Provider 07/02/24 Jelena David OD [address] [place] [address] [place] [address] Ophthalmology 08/30/24 [place] [address] [place] [address] Assigned Neuroscience Provider 09/30/24 Maru Man PA-C [address] [place] [address] Physician Sales Enablement Specialist Dermatology 10/03/24 Maru Man PA-C [address] [place] [address] Physician Sales Enablement Specialist Dermatology 10/22/24 Jelena David OD [address] [place] [address] [place] [address] Assigned Surgical Provider 10/31/24 Fabiano Correa NP [address] [place] [address] Assigned Heart and Vascular Provider 11/30/24 documented as of this encounter
--- OUTSIDE RECORDS SUMMARY | 2024-12-31 03:15 | XMS_ITS | Encounter Summary ---
Author Organization [facility] Address [address] [place] [address] Care Team Providers Care Asbestos Abatement Worker Name Role Phone Lita Oseguera Unavailable Unavailable Marija Edgar APRN [employer] Primary Care Provider + Chanelle Mccann APRN CNM Unavailab le Kyara De La Fuente RN Unavailable [phone] Marija Edgar APRN [employer] Unavailable Mynor Broussard MD Unavailable [phone] Keisha Dotson MD Unavailable [phone] Stacey Briones [employer] DOCTOR Unavailable [phone] Lesley Guillermo CHW Unavailable Mary Mejia Unavailable Unavailable Lita Oseguera Unavailable Unavailable Galo Burrell MD Unavailable Unavailable Cristina Wood Unavailable Lesley Guillermo CHW Unavailable Meredith Bedoya Unavailable Unavailable Cristina Wood Unavailable Diana Desir [facility] Unavailable Rain Galaviz PA-C Unavailable Summer Lara MD Unavailable [phone] Summer Lara MD Unavailable [phone] Summer Lara MD Unavailable [phone] Tavia Wyatt MD Unavailable [phone] Johnny Murillo MD Unavailable [phone] Erica Farrell TEACHER OF THE HEARING IMPAIRED [employer] Unavailable Vikas Teresitakaren Watson [facility] Unavailable Tavia Wyatt MD Unavailable [phone] Diana Desir [facility] Unavailable [phone] Rich Barrett MD Unavailable Neil Kent MD Unavailable Roney StoryM Unavailable Erica Farrell TEACHER OF THE HEARING IMPAIRED [employer] Unavailable Diana Desir [facility] Unavailable [phone] Jelena David OD Unavailable [phone] Galo Burrell MD Unavailable Unavailable Livan Sharif MD Unavailable Livan Sharif MD Unavailable Catherine Cm MD Unavailable + Valery Veronica PA-C Unavailable [phone] Catherine Cm MD Unavailable + Johnny Murillo MD Unavailable +[phone] Brea Quinn APRN [employer] Unavailable [phone] Brea Quinn APRN [employer]ER Unavailable [phone] Jose Francisco Johnson MD Unavailable Livan Sharif MD Unavailable + Catherine Cm MD Unavailable + Sydnie Martinez RN Unavailable Unavailable Alfonso Renteria MD Unavailable [phone] Esha Grimm PA-C Primary Care Provider Perez Chengjc Fish PA-C Unavailable ArmaniRadha APRPhani GRANADOS Unavailable Jelena David OD Unavailable Pao Joseph RN Unavailable Unavailable Esha Grimm PA-C Unavailable [phone] Valery Veronica PA-C Unavailable Rey Tay MD Unavailable Rocky Zepeda DO Unavailable Philip Dumont MD Unavailable Meredith Carrera PA-C Unavailable [phone] Neil Kent MD Unavailable Juan Pablo Emmanuel MD Unavailable Audrey Waite PA-C Unavailable Valery Veronica PA-C Unavailable Herminia Hatch MD Unavailable Jelena David OD Unavailable [phone] Juan Pablo Emmanuel MD Unavailable Maru Man PA-C Unavailable Maru Man PA-C Unavailable [phone] Jelena David OD Unavailable Fabiano Correa NP Unavailable Reason for Visit * Reason Onset Date Comments Patient/info Update 08/31/2020 appointment request Encounter Details Date Type Department Care Team (Late st Contact Info) Description 08/31/2020 MyC Medical Advice [address] [address] Marija Edgar APRN [facility] [address] [place] [address] Patient/info Update (appointment request ) Social [...] attend chur ch or latter day services? More than 4 [...] Answer Date Recorded PHQ-2 Score 0 08/12/2020 [facility] - Occupational Stress Questionnaire [...] Legal Sex Female 4:13 AM OUTSIDE SALES PROFESSIONAL Gender Identity Female 03/02/2021 5:45 PM CDT Sexual Orientation Straight 02/28/2020 12 :51 AM CDT COVID-19 Exposure Response Date Recorded In the last month, have you been in contact with someone who was confirmed or suspected to have Coronavirus / COVID-19? No / Unsure 09/03/2020 12:11 PM OUTSIDE SALES PROFESSIONAL documented as of this encounter Miscellaneous Notes * Telephone Encounter - Maryjane Mccallum RN - 09/01/2020 7:21 AM OUTSIDE SALES PROFESSIONAL Patient sent message requesting office visit with [...] Visit with Marija Edgar APRN CNP [facility] ([facility] ) [id number] [place] [phone] Maryjane Mccallum Registered Nurse [facility] IDE SALES PROFESSIONAL documented in this encounter Plan of Treatment Upcoming Encounters Date Type Department Care Team (Latest Contact Info) Description 01/02/2025 1:[address] [facility] [id number] [place] [phone] Lauren Claudio PA-C [id number] [place] [address] 01/17/2025 10:00 AM CDT Appointment [facility] [address] [place] [phone] Lauren Claudio PA-C [address] [place], [place] [phone] 04/16/2025 11:00 AM CDT Virtual Visit [facility] [address] [place] [phone] Meredith Carrera PA-C [address] [place] [address] [phone] documented as of this encounter Visit Diagnoses Not on filedocumented in this encounter Additional Health Concerns Infection Onset Date Last Indicated Resolved Time Rule Out COVID-19 09/24/2020 09/24/2020 09/24/2020 9:24 AM CDT Rule Out COVID-19 11/05/2020 11/05/2020 11/06/2020 1:09 PM CDT Rule Out COVID-19 05/11/2021 05/11/2021 05/13/2021 10:18 AM CDT Rule Out COVID-19 07/13/2021 07/13/2021 07/14/2021 3:04 PM OUTSIDE SALES PROFESSIONAL Rule Out COVID-19 07/18/2021 07/18/2021 07/20/2021 1:56 PM OUTSIDE SALES PROFESSIONAL COVID-19 07/18/2021 07/18/2021 08/08/2021 11:3 9 PM OUTSIDE SALES PROFESSIONAL Rule Out COVID-19 12/18/2021 12/18/2021 12/19/2021 11:34 AM CDT Rule Out COVID-19 02/24/2022 02/24/2022 02/25/2022 1:08 PM CDT Rule Out COVID-19 04/26/2022 04/26/2022 04/26/2022 6:47 AM CDT Rule Out COVID-19 05/17/2022 05/17/2022 05/17/2022 10:20 PM OUTSIDE SALES PROFESSIONAL Rule Out COVID-19 06/09/2022 06/09/2022 06/09/2022 9:35 AM OUTSIDE SALES PROFESSIONAL COVID-19 06/09/2022 06/09/2022 06/30/2022 11:4 1 PM OUTSIDE SALES PROFESSIONAL Rule Out COVID-19 11/10/2022 11/10/2022 11/11/2022 12:17 [...] Total Score: 9 06/25/20 20 7:04 AM OUTSIDE SALES PROFESSIONAL documented as of this encounter Care Teams Asbestos Abatement Worker Relationship Specialty Start Date End Date Marija Edgar APRN [employer] PCP - General Nurse Practitioner 04/30/20 04/14/23 Esha Grimm PA-C [address] [place] [phone] PCP - General Family Medicine 05/04/23 Lita Oseguera Personal Advocate & Liaison (PAL) 02/28/20 03/27/23 Chanelle Mccann APRN CNM [address] [place], [place] [address] [place], [place] 34[address] Assigned OBGYN Provider 05/02/2005/09 Kyara De La Fuente, RN Specialty Irrigation District Manager Neurology 06/04/20 03/05/21 Marija Edgar APRN [employer] Assigned PCP 06/08/20 04/29/23 Mynor Broussard MD [address] [facility] 500 [place], [place] 5160[address] Assigned Surgical Provider 06/01/20 11/28/21 Keisha Dotson MD [address] [place], [place] 267745 Assigned Neuroscience Provider 06/04/20 04/01/23 Stacey Briones, [facility] Lead Irrigation District Manager Primary Care - CC 08/11/2012/30 Lesley Guillermo, [facility] Community Health Worker 08/11/2010/01 Mary Mejia Financial Resource Worker 09/02/20 10/06/20 Lita Oseguera Personal Advocate & Liaison (PAL) Family Medicine 09/10/20 09/21/20 Galo Burrell MD Assigned Heart and Vascular Provider 10/05/20 04/02/22 Cristina Wood Financial Resource Worker 10/07/20 10/14/20 Lesley Guillermo, [facility] Community Health Worker 10/23/2012/30 Meredith Bedoya Financial Resource Worker 10/23/20 11/23/20 Cristina Wood Financial Resource Worker 02/09/21 02/09/21 Diana Desir, [facility] [address] [place] [address] Pharmacist Pharmacist 04/17/21 Rain Galaviz PA-C [address] [facility] [place] [address] Physician Motorboat Operator Dermatology 04/28/21 Summer Lara MD [address] [place] [address] Assigned OBGYN Provider 05/10/2105/23 Summer Lara MD [address] [place], [place] 88[address] Assigned OBGYN Provider 05/31/21 Summer Lara MD [address] [place], [place] 7[address] Assigned OBGYN Provider 05/24/2105/30 Tavia Wyatt MD [address] [place], [place] [address] Dermatology 07/14/21 Johnny Murillo MD [address] [facility] [address] [place] [address] Assigned Musculoskeletal Provider 08/30/21 03/17/22 Erica Farrell APRN [employer] [address] [facility] [address] [place] [address] Nurse Practitioner Cardiovascular Disease 09/09/21 Teresita Bean, [facility] [address] [place] [address] Pharmacist Pharmacist 09/24/21 09/29/21 Tavia Wyatt MD [address] [place] [address] Assigned Surgical Provider 11/29/21 05/07/22 Diana Desir, [facility] [address] [place] [address] Assigned MTM Pharmacist 01/02/22 Rich Barrett MD [address] [place] [address] Physician Ophthalmology 01/21/22 Neil Kent MD 500 [place] [address] Dermatology 02/24/22 Roney Story DPM [address] [facility] [address] [place] [address] Assigned Musculoskeletal Provider 03/20/22 08/13/22 Erica Farrell APRN [employer] [address] [place] [address] Assigned Heart and Vascular Provider 04/03/22 04/16/22 Diana Desir, [facility] [address] [place] [address] Assigned MTM Pharmacist 04/07/22 Jelena David OD [address] [facility] [place] [address] Assigned Surgical Provider 05/08/22 10/08/22 Galo Burrell MD Assigned Heart and Vascular Provider 04/17/22 06/11/22 Livan Sharif MD [address] [place] [address] Cardiovascular Disease 05/14/22 Livan Sahrif MD [address] [address] [place] 9[address] Assigned Heart and Vascular Provider 06/12/22 07/23/22 Catherine Cm MD [address] [address] [place] [address] Cardiovascular Disease 07/21/22 Valery Veronica, PA-C [address] [place], [place] 6[address] Physician Motorboat Operator Dermatology 07/21/22 Catherine Cm MD [address] [address] [place] [address]335 Assigned Heart and Vascular Provider 07/24/22 11/05/22 Johnny Murillo MD [address] 334374 Assigned Musculoskeletal Provider 08/14/22 10/08/22 Brea Quinn APRN [employer] [address] [place] [address] Nurse Practitioner Dermatology 09/21/22 Brea Quinn APRN [employer] [address] [place] [address] Assigned Surgical Provider 10/09/22 05/01/24 [place] [address] [facility] [address] [place] [address] Assigned Musculoskeletal Provider 10/09/22 05/01/24 Livan Sharif MD [address] [facility] [address] [place] [address] Assigned Heart and Vascular Provider 11/06/22 11/12/22 Catherine Cm MD [address] [facility] [address] [place], [place] [address] Assigned Heart and Vascular Provider 11/13/22 05/27/23 Sydnie Martinez RN Personal Advocate & Liaison (PAL) Family Medicine 03/28/23 07/31/23 Alfonso Renteria MD [address] [facility] 200 [place], [place] [address] Assigned Neuroscience Provider 04/02/23 09/29/24 Cheng Todd PA-C [address] [place] [address] [phone] Assigned PCP 04/30/23 07/15/23 Radha Lomeli APRN [employer] [address] [facility] [address] [address] [place], [place] [address] Assigned Heart and Vascular Provider 05/28/23 11/29/24 Jelena David OD [address] [facility] [place] [address] MD Ophthalmology 06/15/23 Pao Joseph, VJ Personal Advocate & Liaison (PAL) Nurse 08/01/23 11/07/23 Esha Grimm PA-C [address] [place] [phone] Assigned PCP 07/16/23 Valery Veronica PA-C [address] [place] [address] 745835 Physician Motorboat Operator Dermatology 09/19/23 Rey Tay MD [address] [place] [address] 169435 MD Gastroenterology 09/20/23 Rocky Zepeda DO [address] [place] [address] 274105 Physician Gastroenterology 09/20/23 Philip Dumont MD [address] [place] [address] 205315 Physician Ophthalmology 09/22/23 Meredith Carrera PA-C [address] [place] [address] Assigned Gastroenterology Provider 11/01/23 Neil Kent MD [address] [place] [address] Dermatology 11/02/23 [place] [address] [place] [address] Neurological Surgery 12/26/23 Audrey Waite PA-C [address] [place] [address] Physician Motorboat Operator Dermatology 02/28/24 Valery Veronica PA-C [address] [place] [address] Physician Motorboat Operator Dermatology 04/10/24 Herminia Hatch MD [facility] [place], [place] [id number] Assigned Rheumatology Provider 07/02/24 Jelena David OD [address] [facility] [place] [address] Ophthalmology 08/30/24 [place] [address] [place] [address] Assigned Neuroscience Provider 09/30/24 Maru Man PA-C [address] [place] [address] Physician Motorboat Operator Dermatology 10/03/24 Maru Man PA-C [address] [place] [address] Physician Motorboat Operator Dermatology 10/22/24 Jelena David OD [address] [facility] [place] [address] Assigned Surgical Provider 10/31/24 Fabiano Correa NP [address] [place] [address] Assigned Heart and Vascular Provider 11/30/24 documented as of this encounter
--- OUTSIDE RECORDS SUMMARY | 2024-12-31 03:15 | XMS_ITS | Encounter Summary ---
Author Organization [place] Address [address] [place] [address] Care Team Providers Care Cyber Systems Operations Specialist Name Role Phone Lita Oseguera Unavailable Unavailable Marija Edgar APRN BILLPOSTING SUPERVISOR Primary Care Provider + Chanelle Mccann APRN CNM Unavailab le Kyaar De La Fuente RN Unavailable [phone] Marija Edgar APRN BILLPOSTING SUPERVISOR Unavailable [phone] Mynor Broussard MD Unavailable [phone] Keisha Dotson MD Unavailable Stacey Briones VALUER Unavailable [phone] Lesley Guillermo CHW Unavailable Mary Mejia Unavailable Unavailable Lita Oseguera Unavailable Unavailable Galo Burrell MD Unavailable Unavailable Cristina Wood Unavailable Lesley Guillermo CHW Unavailable Meredith Bedoya Unavailable Unavailable Cristina Wood Unavailable Diana Desir [facility] Unavailable Rain Galaviz PA-C Unavailable Summer Lara MD Unavailable [phone] Summer Lara MD Unavailable [phone] Summer Lara MD Unavailable [phone] Tavia Wyatt MD Unavailable [phone] Johnny Murillo MD Unavailable [phone] Erica Farrell LEAD MINER BILLPOSTING SUPERVISOR Unavailable Vikas Teresitakaren Watson [facility] Unavailable Tavia Wyatt MD Unavailable [phone] Diana Desir [facility] Unavailable [phone] Rich Barrett MD Unavailable Neil Kent MD Unavailable Roney StoryM Unavailable Erica Farrell LEAD MINER BILLPOSTING SUPERVISOR Unavailable Diana Desir [facility] Unavailable [phone] Jelena David OD Unavailable Galo Burrell MD Unavailable Unavailable Livan Sharif MD Unavailable Livan Sharif MD Unavailable Catherine Cm MD Unavailable + Valery Veronica PA-C Unavailable [phone] Catherine Cm MD Unavailable + Johnny Murillo MD Unavailable [phone] Brea Quinn APRN BILLPOSTING SUPERVISOR Unavailable [phone] Brea Quinn APRN BILLPOSTING SUPERVISOR Unavailable [phone] Jose Francisco Johnson MD Unavailable Livan Sharif MD Unavailable + Catherine Cm MD Unavailable + Sydnie Martinez RN Unavailable Unavailable Alfonso Renteria MD Unavailable [phone] Esha Grimm PA-C Primary Care Provider Perez Chengjc Fish PA-C Unavailable ArmaniRadha ARLENE GRANADOS Unavailable Jelena David OD Unavailable Pao Joseph RN Unavailable Unavailable Esha Grimm PA-C Unavailable [phone] Valery Veronica PA-C Unavailable Rey Tay [...] Contact Info) Description 09/02/2020 MyC Medical Advice [address] [address] Marija Edgar APRN BILLPOSTING SUPERVISOR [address] [place] [address] MyChart Communication Social History Tobacco [...] Answer Date Recorded PHQ-2 Score 0 08/12/2020 [facility] [place] of Occupat ional Health - Occupational Stress [...] CDT Legal Sex Female 4:13 AM ELECTRONICS WARFARE TECHNICIAN Gender Identity Female 03/02/2021 5:45 PM CDT Sexual Orientation Straight 02/28/2020 12 :51 AM CDT COVID-19 Exposure Response Date Recorded In the last month, have you been in contact with someone who was confirmed or suspected to have Coronavirus / COVID-19? No / Unsure 09/05/2020 2:50 PM ELECTRONICS WARFARE TECHNICIAN documented as of this encounter Miscellaneous Notes * Telephone Encounter - Ever Cardozo MA - 09/03/2020 10:34 AM CST Responded to patient as below. Ever Cardozo BRICK OFF BEARER (AAMA) TRONICS WARFARE TECHNICIAN documented in this encounter Plan of Treatment Upcoming Encounters Date Type Department Care Team (Latest Contact Info) Description 01/02/2025 1:10 PM CDT Ancillary Procedure [address] [phone] Lauren Claudio PA-C [id number] [place] [address] [phone] 01/17/2025 10:00 AM CDT Appointment [facility] Respiratory [address] [place] [phone] Lauren Claudio PA-C [address] [place], [place] [phone] 04/16/2025 11:00 AM CDT Virtual Visit [facility] [address] 4th [place] [phone] Meredith Carrera PA-C 909 [place] [address] documented as of this encounter Visit Diagnoses Not on filedocumented in this encounter Additional Health Concerns Infection Onset Date Last Indicated Resolved Time Rule Out COVID-19 09/24/2020 09/24/2020 09/24/2020 9:24 AM CDT Rule Out COVID-19 11/05/2020 11/05/2020 11/06/2020 1:09 PM CDT Rule Out COVID-19 05/11/2021 05/11/2021 05/13/2021 10:18 AM CDT Rule Out COVID-19 07/13/2021 07/13/2021 07/14/2021 3:04 PM ELECTRONICS WARFARE TECHNICIAN Rule Out COVID-19 07/18/2021 07/18/2021 07/20/2021 1:56 PM ELECTRONICS WARFARE TECHNICIAN COVID-19 07/18/2021 07/18/2021 08/08/2021 11:3 9 PM ELECTRONICS WARFARE TECHNICIAN Rule Out COVID-19 12/18/2021 12/18/2021 12/19/2021 11:34 AM CDT Rule Out COVID-19 02/24/2022 02/24/2022 02/25/2022 1:08 PM CDT Rule Out COVID-19 04/26/2022 04/26/2022 04/26/2022 6:47 AM CDT Rule Out COVID-19 05/17/2022 05/17/2022 05/17/2022 10:20 PM ELECTRONICS WARFARE TECHNICIAN Rule Out COVID-19 06/09/2022 06/09/2022 06/09/2022 9:35 AM ELECTRONICS WARFARE TECHNICIAN COVID-19 06/09/2022 06/09/2022 06/30/2022 11:4 1 PM ELECTRONICS WARFARE TECHNICIAN Rule Out COVID-19 11/10/2022 11/10/2022 11/11/2022 [...] Depression Total Score: 9 06/25/20 7:04 AM ELECTRONICS WARFARE TECHNICIAN documented as of this encounter Care Teams Cyber Systems Operations Specialist Relationship Specialty Start Date End Date Marija Edgar APRN BILLPOSTING SUPERVISOR PCP - General Nurse Practitioner 04/30/20 04/14/23 Esha Grimm PA-C [address] [place] [phone] PCP - General Family Medicine 05/04/23 Lita Oseguera Personal Advocate & Liaison (PAL) 02/28/20 03/27/23 Chanelle Mccann APRN CNM [address] [place] [address] Assigned OBGYN Provider 05/02/2005/09 Kyara De La Fuente, RN Specialty Central Office Supervisor Neurology 06/04/20 03/05/21 Marija Edgar APRN BILLPOSTING SUPERVISOR Assigned PCP 06/08/20 04/29/23 Mynor Broussard MD [address] [place] [address] Assigned Surgical Provider 06/01/20 11/28/21 Keisha Dotson MD 909 [place] [address] Assigned Neuroscience Provider 06/04/20 04/01/23 Stacey Briones, [facility] Lead Central Office Supervisor Primary Care - CC 08/11/2012/30 Lesley Guillermo, [facility] Community Health Worker 08/11/2010/01 Mary Mejia Financial Resource Worker 09/02/20 10/06/20 Lita Oseguera Personal Advocate & Liaison (PAL) Family Medicine 09/10/20 09/21/20 Galo Burrell MD Assigned Heart and Vascular Provider 10/05/20 04/02/22 Cristina Wood Financial Resource Worker 10/07/20 10/14/20 Lesley Guillermo, [facility] Community Health Worker 10/23/2012/30 Meredith Bedoya Financial Resource Worker 10/23/20 11/23/20 Cristina Wood Financial Resource Worker 02/09/21 02/09/21 Diana Desir, [facility] [address] [place] [address] Pharmacist Pharmacist 04/17/21 Rain Galaviz PA-C [address] [place] [address] [place] [address] Physician Health Safety Engineer Dermatology 04/28/21 Summer Lara MD [address] [place] [address] 186644 Assigned OBGYN Provider 05/10/2105/23 Summer Lara MD [address] [place] [address] 779164 Assigned OBGYN Provider 05/31/21 Summer Lara MD [address] [place] [address] 985714 Assigned OBGYN Provider 05/24/2105/30 Tavia Wyatt MD [address] [place] [address] 061594 Dermatology 07/14/21 Johnny Murillo MD [facility] [place], [place] 665174 Assigned Musculoskeletal Provider 08/30/21 03/17/22 Erica Farrell APRN BILLPOSTING SUPERVISOR 6[address] [facility] [address] [place] [address] Nurse Practitioner Cardiovascular Disease 09/09/21 Teresita Bean [facility] [address] [place] [address] [address] Pharmacist Pharmacist 09/24/21 09/29/21 Tavia Wyatt MD [address] [place], [place] 674060 Assigned Surgical Provider 11/29/21 05/07/22 Diana Desir, [facility] [address] [place] [address] Assigned MTM Pharmacist 01/02/22 Rich Barrett MD [address] [place] [address] Physician Ophthalmology 01/21/22 Neil Kent MD 500 [place], [place] 932435 Dermatology 02/24/22 Roney Story DPM [address] [facility] [address] [place], [place] 574027 Assigned Musculoskeletal Provider 03/20/22 08/13/22 Erica Farrell APRN BILLPOSTING SUPERVISOR 1700 [place] [address] Assigned Heart and Vascular Provider 04/03/22 04/16/22 Diana Desir [facility] [address] [place] [address] Assigned MTM Pharmacist 04/07/22 Jelena David OD [address] [facility] [place] [address] Assigned Surgical Provider 05/08/22 10/08/22 Galo Burrell MD Assigned Heart and Vascular Provider 04/17/22 06/11/22 Livan Sharif MD [address] [place] [address] Cardiovascular Disease 05/14/22 Livan Sharif MD [address] [place] [address] Assigned Heart and Vascular Provider 06/12/22 07/23/22 Catherine Cm MD [address] [place] [address] Cardiovascular Disease 07/21/22 Valery Veronica, PA-C [address] [place] [address] 755935 Physician Health Safety Engineer Dermatology 07/21/22 Catherine Cm MD [address] [place] [address] Assigned Heart and Vascular Provider 07/24/22 11/05/22 Johnny Murillo MD [address] 239094 Assigned Musculoskeletal Provider 08/14/22 10/08/22 Brea Quinn APRN BILLPOSTING SUPERVISOR [address] [place] [address] 696645 Nurse Practitioner Dermatology 09/21/22 Brea Quinn APRN BILLPOSTING SUPERVISOR [address] [place], [place] [address], [place] 323[address] Assigned Surgical Provider 10/09/22 05/01/24 [place] [address] [address] [facility] [[email or web address] [address] [place] [address] Assigned Musculoskeletal Provider 10/09/22 05/01/24 Livan Sharif MD [address] [place] 236475 Assigned Heart and Vascular Provider 11/06/22 11/12/22 Catherine Cm MD [address] [place] 646965 Assigned Heart and Vascular Provider 11/13/22 05/27/23 Sydnie Martinez RN Personal Advocate & Liaison (PAL) Family Medicine 03/28/23 07/31/23 Alfonso Renteria MD 5775 [facility] 200 [place] [address] Assigned Neuroscience Provider 04/02/23 09/29/24 Cheng Todd PA-C [address] [place] [address] [phone] Assigned PCP 04/30/23 07/15/23 Radha Lomeli, ARLENE BILLPOSTING SUPERVISOR [address] [place] [address] Assigned Heart and Vascular Provider 05/28/23 11/29/24 Jelena David OD [address] [facility] [place] [address] Ophthalmology 06/15/23 Pao Joseph, VJ Personal Advocate & Liaison (PAL) Nurse 08/01/23 11/07/23 Esha Grimm PA-C [address] [place] [phone] Assigned PCP 07/16/23 Valery Veronica PA-C [address] [place] [address] 606545 Physician Health Safety Engineer Dermatology 09/19/23 Rey Tay MD [address] [place] [address] 151495 MD Gastroenterology 09/20/23 Rocky Zepeda DO [address] [place] [address] 104735 Physician Gastroenterology 09/20/23 Philip Dumont MD [address] [place] [address] 964255 Physician Ophthalmology 09/22/23 Meredith Carrera PA-C [address] [place] [address] 436595 Assigned Gastroenterology Provider 11/01/23 Neil Kent MD [address] [place] [address] Dermatology 11/02/23 [place] [address] [place] [address] Neurological Surgery 12/26/23 Audrey Waite PA-C 500 [place] [address] Physician Health Safety Engineer Dermatology 02/28/24 Valery Veronica PA-C [address] [place] [address] Physician Health Safety Engineer Dermatology 04/10/24 Herminia Hatch MD [address] [place] [address] Assigned Rheumatology Provider 07/02/24 Jelena David OD [address] [place] [address] [place] [address] Ophthalmology 08/30/24 [place] [address] [place] [address] Assigned Neuroscience Provider 09/30/24 Maru Man PA-C [address] [place] [address] Physician Health Safety Engineer Dermatology 10/03/24 Maru Man PA-C [address] [place] [address] Physician Health Safety Engineer Dermatology 10/22/24 Jelena David OD [address] [place] [address] [place] [address] Assigned Surgical Provider 10/31/24 Fabiano Correa POULTRY SCIENTIST 6[address] [facility] [place] [address] Assigned Heart and Vascular Provider 11/30/24 documented as of this encounter
--- NOTE | 2024-12-31 03:16 | PC.NURSE ---
when this real estate underwriter went to room to review discharge and give propanolol pt states, Do I have to take that now or can I just take it home, I'm weird about meds, Pt has a prescription for the same med sent to her pharmacy that she can fill and take tomorrow which she wishes to do that, Denies further questions, to home now with S.O.
--- OUTSIDE RECORDS SUMMARY | 2024-12-31 03:16 | XMS_ITS | Encounter Summary ---
Author Organization [place] Address [address] [place] [address] Care Team Providers Care Milk Runner Name Role Phone Lita Oseguera Unavailable Unavailable Marija Edgar APRN ENERGY PROJECT MANAGER Primary Care Provider + Marija Edgar APRN ENERGY PROJECT MANAGER Unavailable [phone] Mynor Broussard MD Unavailable [phone] Keisha Dotson MD Unavailable Galo Burrell MD Unavailable Unavailable Dinaa Desir [facility] Unavailable [phone] Rain Galaviz PA-C Unavailable Summer Lara MD Unavailable [phone] Tavia Wyatt MD Unavailable Johnny Murillo MD Unavailable Erica Farrell APRN ENERGY PROJECT MANAGER Unavailable Tavia Wyatt MD Unavailable Diana Desir [facility] Unavailable [phone] Rich Barrett MD Unavailable [phone] Neil Kent MD Unavailable Ronye StoryM Unavailable Erica Farrell APRN ENERGY PROJECT MANAGER Unavailable Diana Desir [facility] Unavailable Jelena David OD Unavailable Galo Burrell MD Unavailable Unavailable Livan Sharif MD Unavailable Livan Sharif MD Unavailable IsCatherine hobbs MD Unavailable + Valery Veronica PA-C Unavailable [phone] Catherine Cm MD Unavailable + Johnny Murillo MD Unavailable [phone] Brea Quinn PARAPROFESSIONAL AIDE TEACHER ENERGY PROJECT MANAGER Unavailable [phone] Brea Quinn PARAPROFESSIONAL AIDE TEACHER ENERGY PROJECT MANAGER Unavailable [phone] Jose Francisco Johnson MD Unavailable Livan Sharif MD Unavailable + IsCatherine hobbs MD Unavailable + Sydnie Martinez RN Unavailable Unavailable Alfonso Renteria MD Unavailable Esha Grimm PA-C Primary Care Provider Cheng Todd PA-C Unavailable Radha Lomeli PARAPROFESSIONAL AIDE TEACHER ENERGY PROJECT MANAGER Unavailable [phone] Jelena David OD Unavailable [phone] Pao Joseph RN Unavailable Unavailable Esha Grimm-C Unavailable [phone] Valery Veronica PA-C Unavailable [phone] Rey Tay MD Unavailable Rocky Zepeda DO Unavailable Philip Dumont MD Unavailable [phone] Byron Carreranahed Troncoso PA-C Unavailable [phone] Neil Kent MD Unavailable Juan Pablo Emmanuel MD Unavailable [phone] Audrey Waite PA-C Unavailable [phone] Valery Veronica PA-C Unavailable Herminia Hatch MD Unavailable Jelena David OD Unavailable Juan Pablo Emmanuel MD Unavailable Maru Man-C Unavailable [phone] Maru Man-C Unavailable [phone] Jelena David OD Unavailable Fabiano Correa NP Unavailable [phone] Encounter Details Date Type Department Care Team (Late st Contact Info) Description 10/28/2021 MyC Medical Advice [facility] [address] [place] [address] Erica Farrell, ARLENE ENERGY PROJECT MANAGER [address] [place], [place] [phone] Social History Tobacco Use Types Packs/Day Years [...] How often do you attend yazdanism or yarsani serv ices? Never 09/22/2021 Do [...] a senior living (including now)? No 09/22/2021 [place] Depression Scale [...] PM CDT Legal Sex Female 4:13 AM SILVER DESIGNER Gender Identity Female 03/02/2021 5:45 PM [...] Description 01/02/2025 1:10 PM CDT Ancillary Procedure [address] [address] Lauren Claudio PA-C [address] [place] [address] 01/17/2025 10:[address] [facility] Respiratory [address] [place] [phone] Lauren Claudio PA-C [address] [place] [address] 04/16/2025 11:00 AM CDT Virtual Visit [facility] [address]th [place] [phone] Meredith Carrera PA-C [address] [place] [address] documented as of this encounter Visit Diagnoses Not on filedocumented in this encounter Additional Health Concerns Infection Onset Date Last Indicated Resolved Time Rule Out COVID-19 12/18/2021 12/18/2021 12/19/2021 11:34 AM CDT Rule Out COVID-19 02/24/2022 02/24/2022 02/25/2022 1:08 PM CDT Rule Out COVID-19 04/26/2022 04/26/2022 04/26/2022 6:47 AM CDT Rule Out COVID-19 05/17/2022 05/17/2022 05/17/2022 10:20 PM SILVER DESIGNER Rule Out COVID-19 06/09/2022 06/09/2022 06/09/2022 9:35 AM SILVER DESIGNER COVID-19 06/09/2022 06/09/2022 06/30/2022 11:4 1 PM SILVER DESIGNER Rule Out COVID-19 11/10/2022 11/10/2022 11/11/2022 [...] as of this encounter Care Teams Milk Runner Relationship Specialty Start Date End Date Marija Edgar APRN ENERGY PROJECT MANAGER PCP - General Nurse Practitioner 04/30/20 04/14/23 Esha Grimm PA-C [address] [place] [phone] PCP - General Family Medicine 05/04/23 Lita Oseguera Personal Advocate & Liaison (PAL) 02/28/20 03/27/23 Marija Edgar APRN ENERGY PROJECT MANAGER Assigned PCP 06/08/20 04/29/23 Mynor Broussard MD [address] [address] Assigned Surgical Provider 06/01/20 11/28/21 Keisha Dotson MD [address] [place] [address] Assigned Neuroscience Provider 06/04/20 04/01/23 Galo Burrell MD Assigned Heart and Vascular Provider 10/05/20 04/02/22 Diana Desir, [facility] [address] [place] [address] Pharmacist Pharmacist 04/17/21 Rain Galaviz PA-C [address] [place] [address] [place] [address] Physician Casing Operator Dermatology 04/28/21 Summer Lara MD [address] [place] [address] 446264 Assigned OBGYN Provider 05/31/21 2 Tavia Wyatt MD 606 [facility] [place], [place] [address] Dermatology 07/14/21 Johnny Murillo MD [address] [place], [place] 328144 Assigned Musculoskeletal Provider 08/30/21 03/17/22 Erica Farrell APRN ENERGY PROJECT MANAGER 6405 [facility] [address] [place], [place] 997135 Nurse Practitioner Cardiovascular Disease 09/09/21 Tavia Wyatt MD [address] [place], [place] 608410 Assigned Surgical Provider 11/29/21 05/07/22 Diana Desir, [facility] 3033 [place] [address] Assigned MTM Pharmacist 01/02/22 Rich Barrett MD 3033 [place] [address] Physician Ophthalmology 01/21/22 Neil Kent MD 500 [place], [place] 390525 Dermatology 02/24/22 [place]PM [address] [employer] [facility] [address] [place], [place] 451347 Assigned Musculoskeletal Provider 03/20/22 08/13/22 Erica Farrell APRN ENERGY PROJECT MANAGER [address] [place] [address] Assigned Heart and Vascular Provider 04/03/22 04/16/22 Diana Desir, [facility] 3033 [place] [address] Assigned MTM Pharmacist 04/07/22 Jelena David OD [address] [place] [address] Assigned Surgical Provider 05/08/22 10/08/22 Galo Burrell MD Assigned Heart and Vascular Provider 04/17/22 06/11/22 Livan Sharif MD 6405 [facility] [address] [place] [address] Cardiovascular Disease 05/14/22 Livan Sharif MD [address] [facility] [address] [place] [address] Assigned Heart and Vascular Provider 06/12/22 07/23/22 Catherine Cm MD [address] [facility] [address] [place] [address] Cardiovascular Disease 07/21/22 Valery Veronica, PAUcheC [address] [place] [address] Physician Casing Operator Dermatology 07/21/22 Catherine Cm MD 6405 [facility] [place] [address] Assigned Heart and Vascular Provider 07/24/22 11/05/22 [place] [address] [place] [address] Assigned Musculoskeletal Provider 08/14/22 10/08/22 Brea Quinn APRN ENERGY PROJECT MANAGER [address] [place] [address] Nurse Practitioner Dermatology 09/21/22 Brea Quinn APRN ENERGY PROJECT MANAGER [address] [place] [address] [facility] [place] [address] Assigned Surgical Provider 10/09/22 05/01/24 [place] [address] [facility] 300 [place] [address] Assigned Musculoskeletal Provider 10/09/22 05/01/24 Livan Sharif MD [address] [place] [address] Assigned Heart and Vascular Provider 11/06/22 11/12/22 Catherine Cm MD [address] [place] [address] Assigned Heart and Vascular Provider 11/13/22 05/27/23 Sydnie Martinez RN Personal Advocate & Liaison (PAL) Family Medicine 03/28/23 07/31/23 Alfonso Renteria MD 5775 [facility] [address] [place] [address] Assigned Neuroscience Provider 04/02/23 09/29/24 Cheng Todd PA-C [address] [place] [address] Assigned PCP 04/30/23 07/15/23 Radha Lomeli APRN ENERGY PROJECT MANAGER [address] [place] [address] Assigned Heart and Vascular Provider 05/28/23 11/29/24 Jelena David OD [address] [place] [address] Ophthalmology 06/15/23 Pao Joseph, VJ Personal Advocate & Liaison (PAL) Nurse 08/01/23 11/07/23 Esha Grimm PA-C [address] [place] [address] Assigned PCP 07/16/23 Valery Veronica PA-C [address] [place] [address] 883025 Physician Casing Operator Dermatology 09/19/23 Rey Tay MD [address] [place] [address] 424105 MD Gastroenterology 09/20/23 Rocky Zepeda DO [address] [place] [address] 905535 Physician Gastroenterology 09/20/23 Philip Dumont MD [address] [place] [address] 023765 Physician Ophthalmology 09/22/23 Meredith Carrera PA-C [address] [place] [address] 490495 Assigned Gastroenterology Provider 11/01/23 Neil Kent MD [address] [address] Dermatology 11/02/23 [place] [address] [place] [address] Neurological Surgery 12/26/23 Audrey Waite PA-C [address] [place] [address] Physician Casing Operator Dermatology 02/28/24 Valery Veronica PA-C [address] [place] [address] Physician Casing Operator Dermatology 04/10/24 Herminia Hatch MD [address] [place] [address] Assigned Rheumatology Provider 07/02/24 Jelena David OD [address] [place] [address] [place] [address] Ophthalmology 08/30/24 [place] [address] [place] [address] Assigned Neuroscience Provider 09/30/24 Maru Man PA-C [address] [place] [address] Physician Casing Operator Dermatology 10/03/24 Maru Man PA-C [address] [place] [address] Physician Casing Operator Dermatology 10/22/24 Jelena David, SONJA [address] [place] [address] [place] K[place] [address] Assigned Surgical Provider 10/31/24 Fabiano Correa NP [address] [place] [address] Assigned Heart and Vascular Provider 11/30/24 documented as of this encounter
--- OUTSIDE RECORDS SUMMARY | 2024-12-31 03:16 | XMS_ITS | Encounter Summary ---
Author Organization [facility] Address [address] [place] [address] Care Team Providers Care Fish Farm Manager Name Role Phone Lita Oseguera Unavailable Unavailable Marija Edgar APRN LIVE TRUCK TECHNICIAN Primary Care Provider + Marija Edgar APRN LIVE TRUCK TECHNICIAN Unavailable [phone] Mynor Broussard MD Unavailable [phone] Keisha Dotson MD Unavailable Galo Burrell MD Unavailable Unavailable Diana Desir [facility] Unavailable Rain Galaviz PA-C Unavailable Summer Lara MD Unavailable [phone] Tavia Wyatt MD Unavailable Johnny Murillo MD Unavailable [phone] Erica Farrell APRN LIVE TRUCK TECHNICIAN Unavailable Tavia Wyatt MD Unavailable Diana Desir [facility] Unavailable Rich Barrett MD Unavailable [phone] Neil Kent MD Unavailable Roney StoryM Unavailable Erica Farrell APRN LIVE TRUCK TECHNICIAN Unavailable Diana Desir [facility] Unavailable Jelena David OD Unavailable [phone] Galo Burrell MD Unavailable Unavailable Livan Sharif MD Unavailable Livan Sharif MD Unavailable IsCatherine hobbs MD Unavailable + Valery Veronica PA-C Unavailable [phone] Catherine Cm MD Unavailable + Johnny Murillo MD Unavailable [phone] Brea Quinn C[employer] [place] LIVE TRUCK TECHNICIAN Unavailable [phone] Brea Quinn [employer] [place] LIVE TRUCK TECHNICIAN Unavailable [phone] Jose Francisco Johnson MD Unavailable Livan Sharif MD Unavailable + IsCatherine hobbs MD Unavailable + Sydnie Martinez RN Unavailable Unavailable Alfonso Renteria MD Unavailable Esha Grimm PA-C Primary Care Provider Cheng Todd PA-C Unavailable Radha Lomeli [employer] [place] LIVE TRUCK TECHNICIAN Unavailable [phone] Jelena David OD Unavailable Pao Joseph RN Unavailable Unavailable Esha Grimm-C Unavailable [phone] Valery Veronica PA-C Unavailable [phone] Rey Tay MD Unavailable Rocky Zepeda DO Unavailable Philip Dumont MD Unavailable [phone] DebiMeredith PA-C Unavailable [phone] Neil Kent MD Unavailable Juan Pablo Emmanuel MD Unavailable Audrey Waite PA-C Unavailable [phone] Valery Veronica PA-C Unavailable [phone] Herminia Hatch MD Unavailable Jelena David OD Unavailable Juan Pablo Emmanuel MD Unavailable Maru Man-C Unavailable [phone] Maru Man-C Unavailable [phone] Jelena David OD Unavailable Fabiano Correa NP Unavailable [phone] Reason for Visit * Reason Onset Date Comments Refill Request 10/31/2021 sertraline Encounter Details Date Type Department Care Team (Late st Contact Info) Description 10/31/[address] [address] Marija Edgar APRN [facility] 4550 [facility][Note 3] [facility] [place] [place] [address] Refill Request (sertraline) Social History Tobacco [...] How often do you attend christianity or orthodoxy serv ices? Never 09/22/2021 Do [...] Answer Date Recorded PHQ-2 Score 2 09/22/2021 [facility] Occupat ional Health - Occupational Stress [...] in a long-term (including now)? No 09/22/2021 [place] Depression Scale Answer Date Recorded [place] [...] CDT Legal Sex Female 4:[address] ATTENDANT Gender Identity Female 03/02/2021 5:45 PM CDT Sexual Orientation Straight 02/28/2020 12 :51 AM CDT COVID-19 Exposure Response Date Recorded In the last 10 days, have yo u been in contact with someone who was confirmed or suspected to have Coronavirus/COVID-19? No / Unsure 10/30/2021 10:32 AM CDT documented as of this encounter Miscellaneous Notes * Telephone Encounter - Diana Desir, [facility] - 11/02/2021 8:58 AM CDT Approved per [facility] CPA. Diana Desir PharmD Medication Therapy Management Provider, [facility] Pager: [phone] * Telephone Encounter - Aleyda Scott RN [...] daily. Pt has follow up tomorrow with [facility] pharmacist to continue to work on taper. Appointments in Next Year Nov 03, 2021 3:30 PM Pharmacist Visit with Diana Desir RPH [facility] [phone] Informed patient that will route refill request [...] can be reached at: Other phone number: [phone] Best Time: ANYTIME Can we leave a detailed message on this number? YES Call taken on 10/31/2021 at 10:31 AM by Amalia Deluca documented in this encounter Plan of Treatment Upcoming Encounters Date Type Department Care Team (Latest Contact Info) Description 01/02/2025 1:10 PM CDT Ancillary Procedure [facility] [address] [place] [address] Lauren Claudio PA-C [address] [place] [address] 01/17/2025 10:00 AM CDT Appointment [place] [address] [place] [phone] Lauren Claudio PA-C [address] [place] [address] 04/16/2025 11:00 AM CDT Virtual Visit [facility] Gastroenterology Clinic [address] 4th [place] [phone] Meredith Carrera PA-C [address] [place] [address] documented as of this encounter Visit Diagnoses [...] Out COVID-19 05/17/2022 05/17/2022 05/17/2022 10:[address] ATTENDANT Rule Out COVID-19 06/09/2022 06/09/2022 06/09/2022 9:[address] ATTENDANT COVID-19 06/09/2022 06/09/2022 06/30/2022 11:[address] ATTENDANT Rule Out COVID-19 11/10/2022 11/10/2022 11/11/2022 [...] as of this encounter Care Teams Fish Farm Manager Relationship Specialty Start Date End Date Marija Edgar APRN LIVE TRUCK TECHNICIAN PCP - General Nurse Practitioner 04/30/20 04/14/23 Esha Grimm PA-C [address] [place] [address] PCP - General Family Medicine 05/04/23 Lita Oseguera Personal Advocate & Liaison (PAL) 02/28/20 03/27/23 Marija Edgar APRN LIVE TRUCK TECHNICIAN Assigned PCP 06/08/20 04/29/23 Mynor Broussard MD [address] [address] Assigned Surgical Provider 06/01/20 11/28/21 Keisha Dotson MD 909 [place] [address] Assigned Neuroscience Provider 06/04/20 04/01/23 Galo Burrell MD Assigned Heart and Vascular Provider 10/05/20 04/02/22 [facility] 3033 [place] [address] Pharmacist Pharmacist 04/17/21 Rain Galaviz PA-C [address] [place] [address] [place] [address] Physician Tool Shaper Setup Operator Dermatology 04/28/21 Summer Lara MD [address] [place] [address] Assigned OBGYN Provider 05/31/21 2 Tavia Wyatt MD [address] [place] [address] 184904 Dermatology 07/14/21 Johnny Murillo MD [facility] [address] Assigned Musculoskeletal Provider 08/30/21 03/17/22 Erica Farrell APRN LIVE TRUCK TECHNICIAN 6405 [facility] [address] [place] [address] Nurse Practitioner Cardiovascular Disease 09/09/21 Tavia Wyatt MD [address] [place] [address] Assigned Surgical Provider 11/29/21 05/07/22 Diana Desir [facility] [address] [place] [address] Assigned MTM Pharmacist 01/02/22 Rich Barrett MD [address] [place] [address] Physician Ophthalmology 01/21/22 Neil Kent MD 500 [place] [address] Dermatology 02/24/22 Roney Story DPM [address] [facility] [address] [place] [address] Assigned Musculoskeletal Provider 03/20/22 08/13/22 Erica Farrell APRN LIVE TRUCK TECHNICIAN [address]00 [place] [address] Assigned Heart and Vascular Provider 04/03/22 04/16/22 Diana Desir, [facility] [address] [place] [address] Assigned MTM Pharmacist 04/07/22 Jelena David OD [address] [place] [address] [place] [address] Assigned Surgical Provider 05/08/22 10/08/22 Galo Burrell MD Assigned Heart and Vascular Provider 04/17/22 06/11/22 Livan Sharif MD [address] [place] [address] Cardiovascular Disease 05/14/22 Livan Sharif MD [address] [place] [address] Assigned Heart and Vascular Provider 06/12/22 07/23/22 Catherine Cm MD [address] [place] 072045 Cardiovascular Disease 07/21/22 Valery Veronica, PA-C [address] [place] [address] 942395 Physician Tool Shaper Setup Operator Dermatology 07/21/22 Catherine Cm MD [address] [place] 444765 Assigned Heart and Vascular Provider 07/24/22 11/05/22 [place] [address] [place] [address] 031074 Assigned Musculoskeletal Provider 08/14/22 10/08/22 Brea Quinn APRN LIVE TRUCK TECHNICIAN [address] [place] [address] 880405 Nurse Practitioner Dermatology 09/21/22 Brea Quinn APRN LIVE TRUCK TECHNICIAN [address] [place] [address] [place] 037122 Assigned Surgical Provider 10/09/22 05/01/24 [place] [address] [place] [address] Assigned Musculoskeletal Provider 10/09/22 05/01/24 Livan Sharif MD [address] [place] 871875 Assigned Heart and Vascular Provider 11/06/22 11/12/22 Catherine Cm MD [address] [place] [address] Assigned Heart and Vascular Provider 11/13/22 05/27/23 Sydnie Martinez RN Personal Advocate & Liaison (PAL) Family Medicine 03/28/23 07/31/23 Alfonso Renteria MD 5775 [facility] 200 [place] [address] Assigned Neuroscience Provider 04/02/23 09/29/24 Cheng Todd PA-C [address] [place] [address] [id number] Assigned PCP 04/30/23 07/15/23 Radha Lomeli APRN LIVE TRUCK TECHNICIAN [address] [place] [address] Assigned Heart and Vascular Provider 05/28/23 11/29/24 Jelena David OD 3305 [facility] [place] [address] MD Ophthalmology 06/15/23 Pao Joseph, VJ Personal Advocate & Liaison (PAL) Nurse 08/01/23 11/07/23 Esha Grimm PA-C [address] [place] [address] Assigned PCP 07/16/23 Valery Veronica PA-C [address] [place] [address] 567795 Physician Tool Shaper Setup Operator Dermatology 09/19/23 Rey Tay MD [address] [place] [address] 762505 Gastroenterology 09/20/23 Rocky Zepeda DO [address] [place] [address] 765195 Physician Gastroenterology 09/20/23 Philip Dumont MD [address] [place] [address] 191295 Physician Ophthalmology 09/22/23 Meredith Carrera PA-C [address] [place] [address] 651445 Assigned Gastroenterology Provider 11/01/23 Neil Kent MD [address] [place] [address] 755530 Dermatology 11/02/23 [place] [address] [place] [address] Neurological Surgery 12/26/23 Audrey Waite PA-C 500 [place] [address] Physician Tool Shaper Setup Operator Dermatology 02/28/24 Valery Veronica PA-C [address] [place] [address] Physician Tool Shaper Setup Operator Dermatology 04/10/24 Herminia Hatch MD [address] [place] [address] [id number] Assigned Rheumatology Provider 07/02/24 Jelena David OD [address] [place] [address] [place] [address] Ophthalmology 08/30/24 [place] [address] [place] [address] Assigned Neuroscience Provider 09/30/24 Maru Man PA-C [address] [place] [address] Physician Tool Shaper Setup Operator Dermatology 10/03/24 Maru Man PA-C [address] [place] [address] Physician Tool Shaper Setup Operator Dermatology 10/22/24 Jelena David OD [address] [place] [address] [place] [address] Assigned Surgical Provider 10/31/24 Fabiano Correa, POWER LINE INSTALLER [address] [place] [address] Assigned Heart and Vascular Provider 11/30/24 documented as of this encounter
--- OUTSIDE RECORDS SUMMARY | 2024-12-31 03:16 | XMS_ITS | Encounter Summary ---
Author Organization [facility] Address [address] [place] [address] Care Team Providers Care Nurse Transplant Name Role Phone Lita Oseguera Unavailable Unavailable Marija Edgar APRN BASE WAD OPERATOR ADJUSTER Primary Care Provider + Marija Edgar APRN BASE WAD OPERATOR ADJUSTER Unavailable [phone] Mynor Broussard MD Unavailable [phone] Keisha Dotson MD Unavailable Galo Burrell MD Unavailable Unavailable Diana Desir [facility] Unavailable Rain Galaviz PA-C Unavailable Summer Lara MD Unavailable [phone] Tavia Wyatt MD Unavailable Johnny Murillo MD Unavailable Erica Farrell APRN BASE WAD OPERATOR ADJUSTER Unavailable Tavia Wyatt MD Unavailable Diana Desir [facility] Unavailable Rich Barrett MD Unavailable [phone] Neil Kent MD Unavailable Roney StoryM Unavailable Erica Farrell APRN BASE WAD OPERATOR ADJUSTER Unavailable Diana Desir [facility] Unavailable Jelena David OD Unavailable Galo Burrell MD Unavailable Unavailable Livan Sharif MD Unavailable Livan Sharif MD Unavailable IsCatherine hobbs MD Unavailable + Valery Veronica PA-C Unavailable [phone] Catherine Cm MD Unavailable + Johnny Murillo MD Unavailable [phone] Brea Quinn FLAT SURFACER BASE WAD OPERATOR ADJUSTER Unavailable [phone] Brea Quinn FLAT SURFACER BASE WAD OPERATOR ADJUSTER Unavailable [phone] Jose Francisco Johnson MD Unavailable Livan Sharif MD Unavailable + IsCatherine hobbs MD Unavailable + Sydnie Martinez RN Unavailable Unavailable Alfonso Renteria MD Unavailable Esha Grimm PA-C Primary Care Provider Cheng Todd PA-C Unavailable Radha Lomeli FLAT SURFACER BASE WAD OPERATOR ADJUSTER Unavailable [phone] Jelena David OD Unavailable Pao Joseph RN Unavailable Unavailable Esha Grimm-C Unavailable [phone] Valery Veronica PA-C Unavailable [phone] Rey Tay MD Unavailable Rocky Zepeda DO Unavailable Philip Dumont MD Unavailable [phone] Debi Meredith A PA-C Unavailable [phone] Neil Kent MD Unavailable Juan Pablo Emmanuel MD Unavailable Audrey Waite PA-C Unavailable [phone] Valery Veronica PA-C Unavailable Herminia Hatch MD Unavailable Jelena David OD Unavailable Juan Pablo Emmanuel MD Unavailable [phone] Maru Man-C Unavailable [phone] Maru Man-C Unavailable [phone] Jelena David OD Unavailable Fabiano Correa ION IMPLANT MACHINE OPERATOR Unavailable [phone] Encounter Details Date Type Department Care Team (Late st Contact Info) Description 10/17/2021 [facility] Medical Advice [address] [address] Diana Desir, [facility] [address] [place], [place] [phone] Social History Tobacco Use Types Packs/Day Years [...] How often do you attend temple or quaker serv ices? Never 09/22/2021 Do [...] Answer Date Recorded PHQ-2 Score 2 09/22/2021 [facility] [...] a group home (including now)? No 09/22/2021 [place] Depression Scale Answer Date Recorded [place] Depression Score 5 01/14/2021 Last EPDS Self Harm Result Not on file 01/14 Education Answer Date Recorded What is the highest level of school you have completed or the highest degree you have received? 12th grade 08/07/2020 Comments No Sex and Gender Information Value Date Recorded Sex Assigned at Female 03/02/2021 5:45 PM CDT Legal Sex Female 4:13 AM CANE BURNER Gender Identity Female 03/02/2021 5:45 PM CDT [...] Description 01/02/2025 1:10 PM CDT Ancillary Procedure [address] [address] Lauren Claudio PA-C [address] [place] [address] 01/17/2025 10:00 AM CDT Appointment [facility] Respiratory [address] [place] [phone] Lauren Claudio PA-C [address] [place] [address] 04/16/2025 11:00 AM CDT Virtual Visit [facility] Gastroenterology Clinic [address] [place] [phone] Meredith Carrera PA-C 909 [place] [address] documented as of this encounter Visit Diagnoses Not on filedocumented in this encounter Additional Health Concerns Infection Onset Date Last Indicated Resolved Time Rule Out COVID-19 12/18/2021 12/18/2021 12/19/2021 11:34 AM CDT Rule Out COVID-19 02/24/2022 02/24/2022 02/25/2022 1:08 PM CDT Rule Out COVID-19 04/26/2022 04/26/2022 04/26/2022 6:47 AM CDT Rule Out COVID-19 05/17/2022 05/17/2022 05/17/2022 10:20 PM CANE BURNER Rule Out COVID-19 06/09/2022 06/09/2022 06/09/2022 9:35 AM CANE BURNER COVID-19 06/09/2022 06/09/2022 06/30/2022 11:4 1 PM CANE BURNER Rule Out COVID-19 11/10/2022 11/10/2022 11/11/2022 12:17 [...] as of this encounter Care Teams Nurse Transplant Relationship Specialty Start Date End Date Marija Edgar APRN BASE WAD OPERATOR ADJUSTER PCP - General Nurse Practitioner 04/30/20 04/14/23 Esha Grimm PA-C [address] [place] [phone] PCP - General Family Medicine 05/04/23 Lita Oseguera Personal Advocate & Liaison (PAL) 02/28/20 03/27/23 Marija Edgar APRN BASE WAD OPERATOR ADJUSTER Assigned PCP 06/08/20 04/29/23 Mynor Broussard MD [address] [address] Assigned Surgical Provider 06/01/20 11/28/21 Keisha Dotson MD 9 [place] [address] Assigned Neuroscience Provider 06/04/20 04/01/23 Galo Burrell MD Assigned Heart and Vascular Provider 10/05/20 04/02/22 Diana Desir, [facility] [address] [place] [address] Pharmacist Pharmacist 04/17/21 Rain Galaviz PA-C [address] [place] [address] [place] [address] Physician Forwarder Operator Dermatology 04/28/21 Summer Lara MD [address] [place] [address] 906544 Assigned OBGYN Provider 05/31/21 2 Tavia Wyatt MD [address] [place] [address] 705574 Dermatology 07/14/21 Johnny Murillo MD [address] [place], [place] 163134 Assigned Musculoskeletal Provider 08/30/21 03/17/22 Erica Farrell APRN BASE WAD OPERATOR ADJUSTER 6405 [facility] [address] [place], [place] 148385 Nurse Practitioner Cardiovascular Disease 09/09/21 Tavia Wyatt MD [address] [place], [place] 942510 Assigned Surgical Provider 11/29/21 05/07/22 Diana Desir, [facility] 30[address] [place] [address] Assigned MTM Pharmacist 01/02/22 Rich Barrett MD [address] [place] [address] Physician Ophthalmology 01/21/22 Neil Kent MD 500 [place], [place] 464795 Dermatology 02/24/22 [place] [address] [facility] [address] [place], [place] 934867 Assigned Musculoskeletal Provider 03/20/22 08/13/22 Erica Farrell APRN BASE WAD OPERATOR ADJUSTER 1700 [place] [address] Assigned Heart and Vascular Provider 04/03/22 04/16/22 Diana Desir, [facility] [address] [place] [address] Assigned MTM Pharmacist 04/07/22 Jelena David OD [address] [facility] [place] [address] Assigned Surgical Provider 05/08/22 10/08/22 Galo Burrell MD Assigned Heart and Vascular Provider 04/17/22 06/11/22 Livan Sharif MD 6405 [facility] [address] [place], [place] 586[address] Cardiovascular Disease 05/14/22 Livan Sharif MD 6405 [facility] [address] [place] 567925 Assigned Heart and Vascular Provider 06/12/22 07/23/22 Catherine Cm MD [address] [place] 6630200 [place] [address] Cardiovascular Disease 07/21/22 Valery Vreonica, PA-C [address] [place] [address] Physician Forwarder Operator Dermatology 07/21/22 Catherine Cm MD [address] [place] 6630200 [place] [address] Assigned Heart and Vascular Provider 07/24/22 11/05/22 Johnny Murillo MD [address] [place] [address] 434714 Assigned Musculoskeletal Provider 08/14/22 10/08/22 Brea Quinn APRN BASE WAD OPERATOR ADJUSTER [address] [place] [address] Nurse Practitioner Dermatology 09/21/22 Brea Quinn APRN BASE WAD OPERATOR ADJUSTER [address] [place] [address] [place] [address] Assigned Surgical Provider 10/09/22 05/01/24 [place] [address] [place] [address] Assigned Musculoskeletal Provider 10/09/22 05/01/24 Livan Sharif MD [address] [facility] [address] [place] [address] Assigned Heart and Vascular Provider 11/06/22 11/12/22 Catherine Cm MD [address] [facility] [address] [place] [address] Assigned Heart and Vascular Provider 11/13/22 05/27/23 Sydnie Martinez RN Personal Advocate & Liaison (PAL) Family Medicine 03/28/23 07/31/23 Alfonso Renteria MD 5775 [facility] 200 [place] [address] Assigned Neuroscience Provider 04/02/23 09/29/24 Cheng Todd PA-C [address] [place] [address] Assigned PCP 04/30/23 07/15/23 Radha Lomeli APRN BASE WAD OPERATOR ADJUSTER [address] [place] [address] Assigned Heart and Vascular Provider 05/28/23 11/29/24 Jelena David OD [facility] [place] [address] Ophthalmology 06/15/23 Pao Joseph, VJ Personal Advocate & Liaison (PAL) Nurse 08/01/23 11/07/23 Esha Grimm PA-C [address] [place] [address] Assigned PCP 07/16/23 Valery Veronica PA-C [address] [place] [address] 884985 Physician Forwarder Operator Dermatology 09/19/23 Rey Tay MD [address] [place] [address] 945055 MD Gastroenterology 09/20/23 Rocky Zepeda DO [address] [place] [address] 401225 Physician Gastroenterology 09/20/23 Philip Dumont MD [address] [place] [address] 305125 Physician Ophthalmology 09/22/23 Meredith Carrera PA-C [address] [place] [address] Assigned Gastroenterology Provider 11/01/23 Neil Kent MD [address] [address] Dermatology 11/02/23 [place] [address] [place] [address] Neurological Surgery 12/26/23 Audrey Waite PA-C [address] [place] [address] Physician Forwarder Operator Dermatology 02/28/24 Valery Veronica PA-C [address] [place] [address] Physician Forwarder Operator Dermatology 04/10/24 Herminia Hatch MD [address] [place] [address] Assigned Rheumatology Provider 07/02/24 Jelena David OD [address] [place] [address] [place] [address] Ophthalmology 08/30/24 [place] [address] [place] [address] Assigned Neuroscience Provider 09/30/24 Maru Man PA-C [address] [place] [address] Physician Forwarder Operator Dermatology 10/03/24 Maru Man PA-C [address] [place] [address] Physician Forwarder Operator Dermatology 10/22/24 Jelena David, SONJA [address] [place] [address] [place] [address] Assigned Surgical Provider 10/31/24 Fabiano Correa NP [address] [place] [address] Assigned Heart and Vascular Provider 11/30/24 documented as of this encounter
--- OUTSIDE RECORDS SUMMARY | 2024-12-31 03:16 | XMS_ITS | Encounter Summary ---
Author Organization [facility] Address [address] [place] [address] Care Team Providers Care Machinist Set Up Name Role Phone Lita Oseguera Unavailable Unavailable Mairja Edgar APRN GOVERNMENT RELATIONS DIRECTOR Primary Care Provider + Chanelle Mccann APRN CNM Unavailab le Kyara De La Fuente RN Unavailable [phone] Marija Edgar APRN GOVERNMENT RELATIONS DIRECTOR Unavailable Mynor Broussard MD Unavailable [phone] Keisha Dotson MD Unavailable Mary Mejia Unavailable Unavailable Stacey Briones MULTIPLE WIRE SAWYER Unavailable Lesley Guillermo CHW Unavailable Mary Mejia Unavailable Unavailable Lita Oseguera Unavailable Unavailable Galo Burrell MD Unavailable Unavailable Cristina Wood Unavailable Lesley Guillermo CHW Unavailable Meredith Bedoya Unavailable Unavailable Cristina Wood Unavailable Diana Desir [facility] Unavailable Ruhland, Rain Lena PA-C Unavailable Summer Lara MD Unavailable [phone] Summer Lara MD Unavailable [phone] Summer Lara MD Unavailable [phone] Tavia Wyatt MD Unavailable [phone] Johnny Murillo MD Unavailable [phone] Erica Farrell APRN GOVERNMENT RELATIONS DIRECTOR Unavailable VikasTeresita H Unavailable Tavia Wyatt MD Unavailable [phone] Diana Desir [facility] Unavailable [phone] Rich Barrett MD Unavailable [phone] Neil Kent MD Unavailable Roney Story [facility] Unavailable Erica Farrell APRN GOVERNMENT RELATIONS DIRECTOR Unavailable Diana Desir [facility] Unavailable [phone] Jelena David OD Unavailable [phone] Galo Burrell MD Unavailable Unavailable Livan Sharif MD Unavailable Livan Sharif MD Unavailable Catherine Cm MD Unavailable + Valery Veronica PA-C Unavailable [phone] Catherine Cm MD Unavailable + Johnny Murillo MD Unavailable +[phone] Brea Quinn APRN GOVERNMENT RELATIONS DIRECTOR Unavailable [phone] Brea Quinn COSMETICS PRESSER GOVERNMENT RELATIONS DIRECTOR Unavailable [phone] Jose Francisco Johnson MD Unavailable Livan Sharif MD Unavailable Catherine Cm MD Unavailable + Sydnie Martinez RN Unavailable Unavailable Alfonso Renteria MD Unavailable [phone] Esha Grimm PA-C Primary Care Provider Cheng Todd PA-C Unavailable Radha Lomeli APRN, CNP Unavailable Jelena David OD Unavailable Pao Joseph RN Unavailable Unavailable Esha Grimm PA-C Unavailable [phone] Valery Veronica PA-C Unavailable Rey Tay MD Unavailable Rocky Zepeda DO Unavailable Philip Dumont MD Unavailable Meredith Carrera PA-C Unavailable Neil Kent MD Unavailable Juan Pablo Emmanuel MD Unavailable Audrey Waite PA-C Unavailable Valery Veronica PA-C Unavailable Herminia Hatch MD Unavailable Jelena David OD Unavailable [phone] Juan Pablo Emmanuel MD Unavailable Maru Man PA-C Unavailable Maru Man PA-C Unavailable Jelena David OD Unavailable Fabiano Correa NP Unavailable Encounter Details Date Type Department Care Team (Late st Contact Info) Description 08/01/2020 MyC Medical Advice [facility] [id number] [place] [phone] Marija Edgar APRN GOVERNMENT RELATIONS DIRECTOR [address] [place] [phone] Social History Tobacco Use Types Packs/Day Years [...] PM CDT Legal Sex Female 4:13 AM HAZARDOUS MATERIAL SPECIALIST Gender Identity Female 03/02/2021 5:45 PM CDT Sexual Orientation Straight 02/28/2020 12 :51 AM CDT COVID-19 Exposure Response Date Recorded In the last month, have you been in contact with someone who was confirmed or suspected to have Coronavirus / COVID-19? No / Unsure 07/30/2020 4:53 PM HAZARDOUS MATERIAL SPECIALIST documented as of this encounter Miscellaneous Notes * Telephone Encounter - Estephania Black RN - 08/01/2020 9:11 AM HAZARDOUS MATERIAL SPECIALIST Schedule patient for Zio Patch. [facility] Estephania Black RN Flex RDOUS MATERIAL SPECIALIST * Telephone Encounter - Marija Edgar APRN CNP - 08/01/2020 8:46 AM HAZARDOUS MATERIAL SPECIALIST Please help patient schedule her zio patch. This order has been in place since 05/2020 and a new order was placed this week. RDOUS MATERIAL SPECIALIST documented in this encounter Plan of Treatment Upcoming Encounters Date Type Department Care Team (Latest Contact Info) Description 01/02/2025 1:10 PM CDT Ancillary Procedure [facility] [address] [place] [address] Lauren Claudio PA-C [address] [place] [address] 01/17/2025 10:00 AM CDT Appointment [facility] [address] [place] [phone] Lauren Claudio PA-C [address] [place] [address] 04/16/2025 11:00 AM CDT Virtual Visit [facility] [address]th [place] [phone] Meredith Carrera PA-C [address] [place] [address] documented as of this encounter Visit Diagnoses Not on filedocumented in this encounter Additional Health Concerns Infection Onset Date Last Indicated Resolved Time Rule Out COVID-19 08/30/2020 08/30/2020 08/30/2020 5:05 PM HAZARDOUS MATERIAL SPECIALIST Rule Out COVID-19 09/24/2020 09/24/2020 09/24/2020 9:24 AM CDT Rule Out COVID-19 11/05/2020 11/05/2020 11/06/2020 1:09 PM CDT Rule Out COVID-19 05/11/2021 05/11/2021 05/13/2021 10:18 AM CDT Rule Out COVID-19 07/13/2021 07/13/2021 07/14/2021 3:04 PM HAZARDOUS MATERIAL SPECIALIST Rule Out COVID-19 07/18/2021 07/18/2021 07/20/2021 1:56 PM HAZARDOUS MATERIAL SPECIALIST COVID-19 07/18/2021 07/18/2021 08/08/2021 11:3 9 PM HAZARDOUS MATERIAL SPECIALIST Rule Out COVID-19 12/18/2021 12/18/2021 12/19/2021 11:34 AM CDT Rule Out COVID-19 02/24/2022 02/24/2022 02/25/2022 1:08 PM CDT Rule Out COVID-19 04/26/2022 04/26/2022 04/26/2022 6:47 AM CDT Rule Out COVID-19 05/17/2022 05/17/2022 05/17/2022 10:20 PM HAZARDOUS MATERIAL SPECIALIST Rule Out COVID-19 06/09/2022 06/09/2022 06/09/2022 9:35 AM HAZARDOUS MATERIAL SPECIALIST COVID-19 06/09/2022 06/09/2022 06/30/2022 11:4 1 PM HAZARDOUS MATERIAL SPECIALIST Rule Out COVID-19 11/10/2022 11/10/2022 11/11/2022 [...] Total Score: 9 06/25/20 20 7:04 AM HAZARDOUS MATERIAL SPECIALIST documented as of this encounter Care Teams Machinist Set Up Relationship Specialty Start Date End Date Marija Edgar APRN CNP PCP - General Nurse Practitioner 04/30/20 04/14/23 Esha Grimm PA-C [address] [place] [address] PCP - General Family Medicine 05/04/23 Lita Oseguera Personal Advocate & Liaison (PAL) 02/28/20 03/27/23 Chanelle Mccann APRN CNM [address] [facility] 200 [place] [address] Assigned OBGYN Provider 05/02/2005/09 Kyara De La Fuente, RN Specialty Vacuum Cleaner Assembler Neurology 06/04/20 03/05/21 Marija Edgar APRN GOVERNMENT RELATIONS DIRECTOR Assigned PCP 06/08/20 04/29/23 Mynor Broussard MD 6363 [facility] 500 [place], [place] 335775 Assigned Surgical Provider 06/01/20 11/28/21 Keisha Dotson MD 909 [place], [place] 172005 Assigned Neuroscience Provider 06/04/20 04/01/23 Mary Mejia Financial Resource Worker 08/07/20 08/21/20 Stacey Briones, MULTIPLE WIRE SAWYER Lead Vacuum Cleaner Assembler Primary Care - CC 08/11/2012/30 Lesley Guillermo, W Community Health Worker 08/11/2010/01 Mary Mejia Financial Resource Worker 09/02/20 10/06/20 Lita Oseguera Personal Advocate & Liaison (PAL) Family Medicine 09/10/20 09/21/20 Galo Burrell MD Assigned Heart and Vascular Provider 10/05/20 04/02/22 Cristina Wood Financial Resource Worker 10/07/20 10/14/20 Lesley Guillermo, [facility] Community Health Worker 10/23/2012/30 Meredith Bedoya Financial Resource Worker 10/23/20 11/23/20 Cristina Wood Financial Resource Worker 02/09/21 02/09/21 Diana Desir, [facility] 3033 [place], [place] 137336 Pharmacist Pharmacist 04/17/21 Rain Galaviz PA-C [address] [place] [address] DR [place] [place], [place] [phone] Physician Green Building Materials Distributor Dermatology 04/28/21 Summer Lara MD [address] [place] [address] [phone] Assigned OBGYN Provider 05/10/2105/23 Summer Lara MD [address] [place] [address] [phone] Assigned OBGYN Provider 05/31/21 2 Summer Lara MD [address] [place] [address] [phone] Assigned OBGYN Provider 05/24/2105/30 Tavia Wyatt MD [address] [place] [address] Dermatology 07/14/21 Johnny Murillo MD [address] [place] [address] Assigned Musculoskeletal Provider 08/30/21 03/17/22 Erica Farrell APRN GOVERNMENT RELATIONS DIRECTOR 6405 [facility] [address] [place] [address] Nurse Practitioner Cardiovascular Disease 09/09/21 Teresita Bean [facility] 1440 [facility] [place], [place] [phone] Pharmacist Pharmacist 09/24/21 09/29/21 Tavia Wyatt MD [address] [place] [address] Assigned Surgical Provider 11/29/21 05/07/22 [facility] 3033 [place] [address] Assigned MTM Pharmacist 01/02/22 Rich Barrett MD [address] [place] [address] Physician Ophthalmology 01/21/22 Neil Kent MD 500 [place], [place] 660805 Dermatology 02/24/22 Roney Story DPM 0[address] [facility] 300 [place], [place] 469207 Assigned Musculoskeletal Provider 03/20/22 08/13/22 Erica Farrell APRN GOVERNMENT RELATIONS DIRECTOR 1700 [place] [address] Assigned Heart and Vascular Provider 04/03/22 04/16/22 [facility] 3033 [place] [address] Assigned MTM Pharmacist 04/07/22 Jelena David OD [address] [facility] [place] [address] Assigned Surgical Provider 05/08/22 10/08/22 Galo Burrell MD Assigned Heart and Vascular Provider 04/17/22 06/11/22 Livan Sharif MD [address] [address] [place] [address] Cardiovascular Disease 05/14/22 Livan Sharif MD [address] [place] [address] Assigned Heart and Vascular Provider 06/12/22 07/23/22 Catherine Cm MD [address] [place] 239445 Cardiovascular Disease 07/21/22 Valery Veronica PA-C 909 [place] [address] Physician Green Building Materials Distributor Dermatology 07/21/22 Catherine Cm MD [address] [facility] [facility] [address] [place] [address] Assigned Heart and Vascular Provider 07/24/22 11/05/22 Johnny Murillo MD [address] 304[address] Assigned Musculoskeletal Provider 08/14/22 10/08/22 Brea Quinn APRN GOVERNMENT RELATIONS DIRECTOR 500 [place], [place] 296925 Nurse Practitioner Dermatology 09/21/22 Brea Quinn APRN GOVERNMENT RELATIONS DIRECTOR [address] [place] [address] [place] [id number] Assigned Surgical Provider 10/09/22 05/01/24 [place] [address] [place] [address] Assigned Musculoskeletal Provider 10/09/22 05/01/24 Livan Sharif MD [address] [facility] [address] [place] [address] Assigned Heart and Vascular Provider 11/06/22 11/12/22 Catherine Cm MD [address] [place] [address] Assigned Heart and Vascular Provider 11/13/22 05/27/23 Sydnie Martinez RN Personal Advocate & Liaison (PAL) Family Medicine 03/28/23 07/31/23 Alfonso Renteria MD 5775 [facility] [address] 200 [place] [address] Assigned Neuroscience Provider 04/02/23 09/29/24 Cheng Todd PA-C [address] [place] [address] Assigned PCP 04/30/23 07/15/23 Radha Lomeli, COSMETICS PRESSER GOVERNMENT RELATIONS DIRECTOR 6405 [facility] [address] [place], [place] [address]55 Assigned Heart and Vascular Provider 05/28/23 11/29/24 Jelena David OD [address] [facility] [address] [place] [phone] Ophthalmology 06/15/23 Pao Joseph, VJ Personal Advocate & Liaison (PAL) Nurse 08/01/23 11/07/23 Esha Grimm PA-C [address] [place] [address] Assigned PCP 07/16/23 Valery Veronica PA-C [address] [place] [address] 072595 Physician Green Building Materials Distributor Dermatology 09/19/23 Rey Tay MD [address] [place] [address] 263255 Gastroenterology 09/20/23 Rocky Zepeda DO [address] [place] [address] 154115 Physician Gastroenterology 09/20/23 Philip Dumont MD 516 [place] [address] Physician Ophthalmology 09/22/23 Meredith Carrera PA-C [address] [place] [address] Assigned Gastroenterology Provider 11/01/23 Neil Kent MD [address] 205420 MD Dermatology 11/02/23 [place] [address] [place] [address] Neurological Surgery 12/26/23 Audrey Waite PA-C 500 [place], [place] 240525 Physician Green Building Materials Distributor Dermatology 02/28/24 Valery Veronica PA-C [address] [place] [address] Physician Green Building Materials Distributor Dermatology 04/10/24 Herminia Hatch MD 1875 [place], [place] 39911125 Assigned Rheumatology Provider 07/02/24 Jelena David OD [address] [facility] [place] [address] Ophthalmology 08/30/24 [place] [address] [place] [address] Assigned Neuroscience Provider 09/30/24 Maru Man PA-C [address] [place] [address] Physician Green Building Materials Distributor Dermatology 10/03/24 Maru Man PA-C [address] [place] [address] Physician Green Building Materials Distributor Dermatology 10/22/24 Jelena David OD [address] [facility] [place] [address] Assigned Surgical Provider 10/31/24 Fabiano Correa, GIMP TACKER [address] [place] [address] Assigned Heart and Vascular Provider 11/30/24 documented as of this encounter
--- OUTSIDE RECORDS SUMMARY | 2024-12-31 03:16 | XMS_ITS | Encounter Summary ---
Author Organization [facility] Address [address] [place] [address] Care Team Providers Care Turbinated Bone Grinder Name Role Phone Lita Oseguera Unavailable Unavailable Marija Edgar APRN KNOT PICKER CLOTH Primary Care Provider + Marija Edgar APRN KNOT PICKER CLOTH Unavailable Mynor Broussard MD Unavailable [phone] Keisha Dotson MD Unavailable Galo Burrell MD Unavailable Unavailable Diana Desir [facility] Unavailable Rain Galaviz PA-C Unavailable Summer Lara MD Unavailable [phone] Tavia Wyatt MD Unavailable Johnny Murillo MD Unavailable [phone] Erica Farrell APRN KNOT PICKER CLOTH Unavailable Teresita Bean [facility] Unavailable Tavia Wyatt MD Unavailable Diana Desir [facility] Unavailable [phone] Rich Barrett MD Unavailable [phone] Neil Kent MD Unavailable Roney Story DPM Unavailable Erica Farrell NURSING HOME AIDE KNOT PICKER CLOTH Unavailable Diana Desir [facility] Unavailable [phone] Jelena David OD Unavailable Galo Burrell MD Unavailable Unavailable Livan Sharif MD Unavailable + Livan Sharif MD Unavailable + Catherine Cm MD Unavailable + Valery Veronica PA-C Unavailable [phone] Catherine Cm MD Unavailable + Johnny Murillo MD Unavailable [phone] Brea Quinn NURSING HOME AIDE KNOT PICKER CLOTH Unavailable [phone] Brea Quinn NURSING HOME AIDE KNOT PICKER CLOTH Unavailable [phone] Jose Francisco Johnson MD Unavailable Livan Sharif MD Unavailable + IsCatherine hobbs MD Unavailable + Sydnie Martinez RN Unavailable Unavailable Alfonso Renteria MD Unavailable Esha Grimm-C Primary Care Provider Cheng Todd PA-C Unavailable Radha Lomeli NURSING HOME AIDE KNOT PICKER CLOTH Unavailable [phone] Jelena David OD Unavailable [phone] Pao Joseph RN Unavailable Unavailable Esha Grimm-C Unavailable [phone] JeremíasValery damon PA-C Unavailable [phone] Rey Tay MD Unavailable Rocky Zepeda DO Unavailable Philip Dumont MD Unavailable [phone] Meredith Carrera PA-C Unavailable [phone] Neil Kent MD Unavailable Juan Pablo Emmanuel MD Unavailable [phone] Audrey Waite PA-C Unavailable [phone] Valery Veronica PA-C Unavailable [phone] Herminia Hatch MD Unavailable Jelena David OD Unavailable Juan Pablo Emmanuel MD Unavailable [phone] Maru Man-C Unavailable [phone] Maru ManC Unavailable [phone] Jelena David OD Unavailable Fabiano Correa NP Unavailable [phone] Encounter Details Date Type Department Care Team (Late st Contact Info) Description 09/24/2021 [facility] [address] [facility] [address] [place] [address] Teresita Bean, [facility] 1440 [facility] [place] [address] Social History Tobacco [...] often do you attend catholic or worship serv ices? Never 09/22/2021 Do [...] Answer Date Recorded PHQ-2 Score 2 09/22/2021 [facility] [place] of Occupat ional Health - Occupational Stress [...] in a fpc (including now)? No 09/22/2021 [place] Depression Scale [...] CDT Legal Sex Female 4:13 AM RUBBER EXTRUSION MACHINE OPERATOR Gender Identity Female 03/02/2021 5:45 [...] Description 01/02/2025 1:10 PM CDT Ancillary Procedure [address] [address] Lauren Claudio PA-C [address] [place] [address] 01/17/2025 10:00 AM CDT Appointment [facility] Respiratory [address] [place] [phone] Lauren Claudio PA-C [address] [place] [address] 04/16/2025 11:00 AM CDT Virtual Visit [facility] [address] [place] [phone] Meredith Carrera PA-C [address] [place] [address] documented as of this encounter Visit Diagnoses Not on filedocumented in this encounter Additional Health Concerns Infection Onset Date Last Indicated Resolved Time Rule Out COVID-19 12/18/2021 12/18/2021 12/19/2021 11:34 AM CDT Rule Out COVID-19 02/24/2022 02/24/2022 02/25/2022 1:08 PM CDT Rule Out COVID-19 04/26/2022 04/26/2022 04/26/2022 6:47 AM CDT Rule Out COVID-19 05/17/2022 05/17/2022 05/17/2022 10:20 PM RUBBER EXTRUSION MACHINE OPERATOR Rule Out COVID-19 06/09/2022 06/09/2022 06/09/2022 9:35 AM RUBBER EXTRUSION MACHINE OPERATOR COVID-19 06/09/2022 06/09/2022 06/30/2022 11:4 1 PM RUBBER EXTRUSION MACHINE OPERATOR Rule Out COVID-19 11/10/2022 11/10/2022 [...] documented as of this encounter Care Teams Turbinated Bone Grinder Relationship Specialty Start Date End Date Marija Edgar APRN KNOT PICKER CLOTH PCP - General Nurse Practitioner 04/30/20 04/14/23 Esha Grimm PA-C [address] [place] [address] PCP - General Family Medicine 05/04/23 Lita Oseguera Personal Advocate & Liaison (PAL) 02/28/20 03/27/23 Marija Edgar APRN KNOT PICKER CLOTH Assigned PCP 06/08/20 04/29/23 Mynor Broussard MD [address] [address] Assigned Surgical Provider 06/01/20 11/28/21 Keisha Dotson MD 909 [place] [address] Assigned Neuroscience Provider 06/04/20 04/01/23 Galo Burrell MD Assigned Heart and Vascular Provider 10/05/20 04/02/22 Diana Desir, [facility] [address] [place] [address] Pharmacist Pharmacist 04/17/21 Rain Galaviz PA-C [address] [place] [address] [address] [place], [place] [phone] Physician Tentering Machine Off Bearer Dermatology 04/28/21 Summer Lara MD [address] [place] [address] 273664 Assigned OBGYN Provider 05/31/21 2 Tavia Wyatt MD [address] [place] [address] [phone] Dermatology 07/14/21 Johnny Murillo MD [facility] [address] [place], [place] [address] Assigned Musculoskeletal Provider 08/30/21 03/17/22 Erica Farrell APRN KNOT PICKER CLOTH 6405 [facility] [address] [place] 264135 Nurse Practitioner Cardiovascular Disease 09/09/21 Teresita Bean, [facility] [address] [place] [phone] Pharmacist Pharmacist 09/24/21 09/29/21 Tavia Wyatt MD [address] [place] [address] Assigned Surgical Provider 11/29/21 05/07/22 Diana Desir, [facility] [address] [place] [address] Assigned MTM Pharmacist 01/02/22 Rich Barrett MD [facility] [employer] [place] 173326 Physician Ophthalmology 01/21/22 Neil Kent MD 500 [place], [place] 755655 Dermatology 02/24/22 Roney Story DPM [address] [facility] [address] [place], [place] 765667 Assigned Musculoskeletal Provider 03/20/22 08/13/22 Erica Farrell APRN KNOT PICKER CLOTH 1700 [place] [address] Assigned Heart and Vascular Provider 04/03/22 04/16/22 Diana Desir, [facility] [employer] [place] [address] Assigned MTM Pharmacist 04/07/22 Jelena David OD 3305 [facility] [place] [address] Assigned Surgical Provider 05/08/22 10/08/22 Galo Burrell MD Assigned Heart and Vascular Provider 04/17/22 06/11/22 Livan Sharif MD [address] [place] [address] Cardiovascular Disease 05/14/22 Livan Sharif MD [address] [place] [address] Assigned Heart and Vascular Provider 06/12/22 07/23/22 Catherine Cm MD [address] [place] [address] Cardiovascular Disease 07/21/22 Valery Veronica, PA-C [address] [place] [address] 309535 Physician Tentering Machine Off Bearer Dermatology 07/21/22 Catherine Cm MD [address] [place] [address] Assigned Heart and Vascular Provider 07/24/22 11/05/22 Johnny Murillo MD [facility] [address] 962104 Assigned Musculoskeletal Provider 08/14/22 10/08/22 Brea Quinn APRN KNOT PICKER CLOTH [address] [place] [address] 550575 Nurse Practitioner Dermatology 09/21/22 Brea Quinn APRN KNOT PICKER CLOTH [address] [place] [address] Assigned Surgical Provider 10/09/22 05/01/24 [place] [address] [address] [place] [facility] 300 [place] [address] Assigned Musculoskeletal Provider 10/09/22 05/01/24 Livan Sharif MD [address] [place] 443285 Assigned Heart and Vascular Provider 11/06/22 11/12/22 Catherine Cm MD [address] [place] [address] Assigned Heart and Vascular Provider 11/13/22 05/27/23 Sydnie Martinez, RN Personal Advocate & Liaison (PAL) Family Medicine 03/28/23 07/31/23 Alfonso Renteria MD 5775 [facility] 200 [place] [address] Assigned Neuroscience Provider 04/02/23 09/29/24 Cheng Todd PA-C [address] [place] [address] Assigned PCP 04/30/23 07/15/23 Radha Lomeli APRN KNOT PICKER CLOTH [address] [place] [address] Assigned Heart and Vascular Provider 05/28/23 11/29/24 Jelena David OD [address] [facility] [address] Ophthalmology 06/15/23 Pao Joseph, RN Personal Advocate & Liaison (PAL) Nurse 08/01/23 11/07/23 Esha Grimm PA-C [address] [place] [phone] Assigned PCP 07/16/23 Valery Veronica PA-C [address] [place] [address] 284465 Physician Tentering Machine Off Bearer Dermatology 09/19/23 Rey Tay MD [address] [place] [address] 846585 MD Gastroenterology 09/20/23 Rocky Zepeda DO [address] [place] [address] 444095 Physician Gastroenterology 09/20/23 Philip Dumont MD [address] [place] [address] 453195 Physician Ophthalmology 09/22/23 Meredith Carrera PA-C [address] [place] [address] 553425 Assigned Gastroenterology Provider 11/01/23 Neil Kent MD [address] [address] Dermatology 11/02/23 [place] [address] [place] [address] [place] [address] Neurological Surgery 12/26/23 Audrey Waite PA-C [address] [place] [address] Physician Tentering Machine Off Bearer Dermatology 02/28/24 Valery Veronica PA-C 955322 [place], [place] [address] Physician Tentering Machine Off Bearer Dermatology 04/10/24 Herminia Hatch MD [address] [place] [address] Assigned Rheumatology Provider 07/02/24 Jelena David OD [address] [place] [address] [place] [address] Ophthalmology 08/30/24 [place] [address] [place] [address] [place] [address] Assigned Neuroscience Provider 09/30/24 Maru Man PA-C [address] [place] [address] Physician Tentering Machine Off Bearer Dermatology 10/03/24 Maru Man PA-C [address] [place] [address] Physician Tentering Machine Off Bearer Dermatology 10/22/24 Jelena David OD [address] [place] [address] [place] [address] Assigned Surgical Provider 10/31/24 Fabiano Correa NP [address] [place] [address] Assigned Heart and Vascular Provider 11/30/24 documented as of this encounter
--- OUTSIDE RECORDS SUMMARY | 2024-12-31 03:16 | XMS_ITS | Encounter Summary ---
Author Organization [facility] Address [address] [place] [address]697 Care Team Providers Care Statistician Applied Name Role Phone Marija Edgar APRN SAIL REPAIRER Primary Care Provider + Marija Edgar APRN SAIL REPAIRER Unavailable Diana Desir [facility] Unavailable Rain Galaviz PA-C Unavailable Tavia Wyatt MD Unavailable Erica Farrell APRN SAIL REPAIRER Unavailable Rich Barrett MD Unavailable [phone] Neil Kent MD Unavailable Diana Desir [facility] Unavailable Livan Sharif MD Unavailable Catherine Cm MD Unavailable + Valery Veronica PA-C Unavailable [phone] Brea Quinn APRN SAIL REPAIRER Unavailable Brea Quinn APRN, CNP Unavailable Jose Francisco Johnson MD Unavailable Catherine Cm MD Unavailable + Sydnie Martinez RN Unavailable Unavailable Alfonso Renteria MD Unavailable [phone] Esha Grimm PA-C Primary Care Provider Cheng Todd PA-C Unavailable Armani Radha Stovall ARLENE GRANADOS Unavailable Jelena David OD Unavailable Poa Joseph RN Unavailable Unavailable Esha Grimm PA-C Unavailable [phone] Valery Veronica PA-C Unavailable Rey Tay MD Unavailable Rocky Zepeda DO Unavailable Philip Dumont MD Unavailable Meredith Carrera PA-C Unavailable Neil Kent MD Unavailable Juan Pablo Emmanuel MD Unavailable Audrey Waite PA-C Unavailable JeremíasValery damon PA-C Unavailable Herminia Hatch MD Unavailable Jelena David OD Unavailable [phone] Juan Pablo Emmnauel MD Unavailable Maru Man PA-C Unavailable Maru Man PA-C Unavailable Jelena David OD Unavailable Fabiano Correa NP Unavailable Encounter Details Date Type Department Care Team (Late st Contact Info) Description 04/12/2023 [facility] Medical Advice [facility] [address] [place] [phone] Livan Sharif MD [address] [place] [address] Social History Tobacco Use Types Packs/Day Years [...] you attend [facility] or rastafarian services? 1 to 4 [...] [facility] [place] [facility] - [...] in a alf (including now)? 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 Kim Swann, We are in [place], but asked a tech here to check the photo. He said the spot you chose is OK but he thinks we should have the [employer] techs check in with you as you may need to have some extra prep gelif you have have issues with the pads. We are reaching out to that [facility] team to let them know you are having some issues. Team [address] [place] [address] Sharif [phone] documented in this encounter Plan of Treatment Upcoming Encounters Date Type Department Care Team (Latest Contact Info) Description 01/02/2025 1:10 PM CDT Ancillary Procedure [address] [address] Lauren Claudio PA-C [id number] [place] [address] 01/17/2025 10:00 AM CDT Appointment [place] [id number] [place] [address] Lauren Claudio PA-C [address] [place] [address] 04/16/2025 11:00 AM CDT Virtual Visit [facility] [address] 4th [place] [phone] Meredith Carrera PA-C [address] [place] [address] documented as of this encounter Visit Diagnoses [...] documented as of this encounter Care Teams Statistician Applied Relationship Specialty Start Date End Date Marija Edgar APRN SAIL REPAIRER PCP - General Nurse Practitioner 04/30/20 04/14/23 Esha Grimm PA-C [address] [place] [address] PCP - General Family Medicine 05/04/23 Marija Edgar APRN SAIL REPAIRER Assigned PCP 06/08/20 04/29/23 Diana Desir, [facility] [address] [place], [place] 2594[address] Pharmacist Pharmacist 04/17/21 Rain Galaviz PA-C [address] [place] [address] [address] [place] [address] Physician Electronic Organ Mechanic Dermatology 04/28/21 Tavia Wyatt MD [address] [place] [address] [address] [place] [id number] Dermatology 07/14/21 Erica Farrell APRN SAIL REPAIRER [address] [facility] [address] [place] [address] Nurse Practitioner Cardiovascular Disease 09/09/21 Rich Barrett MD [address] [place] 0[address] Physician Ophthalmology 01/21/22 Neil Kent MD 500 [place] [address] Dermatology 02/24/22 [facility] 3033 [place] [address] Assigned [place] Pharmacist 04/07/22 Livan Sharif MD [address] [place] [address] Cardiovascular Disease 05/14/22 Catherine Cm MD [address] [place] [id number] Cardiovascular Disease 07/21/22 Valery Veronica, PA-C 909 [place], [place] 111955 Physician Electronic Organ Mechanic Dermatology 07/21/22 Brea Quinn APRN SAIL REPAIRER 500 [place] [address] Nurse Practitioner Dermatology 09/21/22 Brea Quinn APRN SAIL REPAIRER [address] [place] [address] Assigned Surgical Provider 10/09/22 05/01/24 [place] [address] [place] [address] Assigned Musculoskeletal Provider 10/09/22 05/01/24 Catherine Cm MD [address] [facility] [address] [place] [address] Assigned Heart and Vascular Provider 11/13/22 05/27/23 Sydnie Martinez RN Personal Advocate & Liaison (PAL) Family Medicine 03/28/23 07/31/23 Alfonso Renteria MD [address] [facility] 200 [place] [address] Assigned Neuroscience Provider 04/02/23 09/29/24 Cheng Todd PA-C [address] [place] [address] Assigned PCP 04/30/23 07/15/23 Radha Lomeli APRN SAIL REPAIRER [address] [place] [address] Assigned Heart and Vascular Provider 05/28/23 11/29/24 Jelena David OD [address] [facility] [place] [address] Ophthalmology 06/15/23 Pao Joseph, VJ Personal Advocate & Liaison (PAL) Nurse 08/01/23 11/07/23 Esha Grimm PA-C [address] [place] [address] Assigned PCP 07/16/23 Valery eVronica PA-C [address] [place] [address] Physician Electronic Organ Mechanic Dermatology 09/19/23 Rey Tay MD [address] [place] [address] MD Gastroenterology 09/20/23 Rocky Zepeda DO [address] [place] [address] Physician Gastroenterology 09/20/23 Philip Dumont MD [address] [place] [address] Physician Ophthalmology 09/22/23 Meredith Carrera PA-C [address] [place] [address] Assigned Gastroenterology Provider 11/01/23 Neil Kent MD [address] [address] Dermatology 11/02/23 [place] [address] [address] Neurological Surgery 12/26/23 Audrey Waite PA-C [address] [place] [address] Physician Electronic Organ Mechanic Dermatology 02/28/24 Valery Veronica PA-C [id number] [address] [place] [address] Physician Electronic Organ Mechanic Dermatology 04/10/24 Herminia Hatch MD [facility] [place], [place] 08[address] Assigned Rheumatology Provider 07/02/24 Jelena David OD [address] [place] [address] [place] [address] Ophthalmology 08/30/24 [place] [address] [place] [address] Assigned Neuroscience Provider 09/30/24 Maru Man PA-C [address] [place] [address] 073330 Physician Electronic Organ Mechanic Dermatology 10/03/24 Maru Man PA-C [address] [place] [address] Physician Electronic Organ Mechanic Dermatology 10/22/24 Jelena David OD [facility]5 [facility] [place] [address] Assigned Surgical Provider 10/31/24 Fabiano Correa NP [address] 421885 Assigned Heart and Vascular Provider 11/30/24 documented as of this encounter
--- OUTSIDE RECORDS SUMMARY | 2024-12-31 03:16 | XMS_ITS | Encounter Summary ---
Author Organization [facility] Address [address] [place] [address]992 Care Team Providers Care Mental Health Therapist Name Role Phone Marija Edgar APRN BUSINESS LIAISON MANAGER Primary Care Provider + Marija Edgar APRN BUSINESS LIAISON MANAGER Unavailable [phone] Keisha Dotson MD Unavailable Diana Desir [facility] Unavailable Rain Galaviz PA-C Unavailable Tavia Wyatt MD Unavailable Erica Farrell APRN BUSINESS LIAISON MANAGER Unavailable Rich Barrett MD Unavailable [phone] Neil Kent MD Unavailable Diana Desir [facility] Unavailable Livan Sharif MD Unavailable Catherine Cm MD Unavailable + Valery Veronica PA-C Unavailable [phone] Brea Quinn APRN BUSINESS LIAISON MANAGER Unavailable Brea Quinn CLAY GRINDER BUSINESS LIAISON MANAGER Unavailable Jose Francisco Johnson MD Unavailable Catherine Cm MD Unavailable + Sydnie Martinez RN Unavailable Unavailable Alfonso Renteria MD Unavailable [phone] Esha Grimm PA-C Primary Care Provider Cheng Todd PA-C Unavailable Radha Lomeli APRN, CNP Unavailable Jelena David OD Unavailable Pao Joseph RN Unavailable Unavailable Esha Grimm PA-C Unavailable [phone] JeremíasValery damon PA-C Unavailable Rey Tay [...] [phone] Jelena David OD Unavailable [phone] Fabiano Correa NP Unavailable [phone] Encounter Details Date Type Department Care Team (Late st Contact Info) Description 03/29/2023 MyC Medical Advice [address] [address] Diana Desir, [facility] 30[address] [place] [address] Social History Tobacco Use Types Packs/Day Years [...] you attend [facility] or rastafari services? 1 to 4 [...] in a jail (including now)? No 03/10/2023 [place] Depression Scale Answer Date Recorded [place] Depression Score 5 01/14/2021 Last EPDS Self Harm Result Not on file 01/14 Education Answer Date Recorded What is the highest level of school you have completed or the highest degree you have received? 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 Gender Identity Female 03/02/2021 5:45 PM [...] Description 01/02/2025 1:10 PM CDT Ancillary Procedure [address] [phone] Lauren Claudio PA-C [address] [place] [address] 01/17/2025 10:00 AM CDT Appointment [facility] Respiratory [facility]5 [place] [phone] Lauren Claudio PA-C [address] [place] [address] 04/16/2025 11:00 AM CDT Virtual Visit [facility] [address] 4th [place] [phone] Meredith Carrera PA-C [address] [place] [address] documented as of this encounter Visit Diagnoses [...] of this encounter Care Teams Mental Health Therapist Relationship Specialty Start Date End Date Marija Edgar APRN BUSINESS LIAISON MANAGER PCP - General Nurse Practitioner 04/30/20 04/14/23 Esha Grimm PA-C [address] [place] [phone] PCP - General Family Medicine 05/04/23 Marija Edgar APRN BUSINESS LIAISON MANAGER Assigned PCP 06/08/20 04/29/23 Keisha Dotson MD 909 [place], [place] 530635 Assigned Neuroscience Provider 06/04/20 04/01/23 Diana Desir [facility] [address] [place], [place] [phone] Pharmacist Pharmacist 04/17/21 Rain Galaviz PA-C [address] [place] [address] [address] [place] [address] Physician Bolting Machine Operator Dermatology 04/28/21 Tavia Wyatt MD [address] [place] [address] DR [address] Lara [place] [address] Dermatology 07/14/21 Erica Farrell APRN BUSINESS LIAISON MANAGER [address] [place] 296065 Nurse Practitioner Cardiovascular Disease 09/09/21 Rich Barrett MD [address] [place] 603625 Physician Ophthalmology 01/21/22 Neil Kent MD 500 [place], [place] 145475 Dermatology 02/24/22 Diana Desir, [facility] [address] [place] [address] Assigned MTM Pharmacist 04/07/22 Livan Sharif MD [address] [place] 846505 Cardiovascular Disease 05/14/22 Catherine Cm MD [address] [place] 454175 Cardiovascular Disease 07/21/22 Valery Veronica PA-C 909 [place] [address] Physician Bolting Machine Operator Dermatology 07/21/22 Brea Quinn APRN BUSINESS LIAISON MANAGER 500 [place], [place] 327255 Nurse Practitioner Dermatology 09/21/22 Brea Quinn APRN BUSINESS LIAISON MANAGER 6401 [place] [address] Assigned Surgical Provider 10/09/22 05/01/24 [place] [address] [facility] 300 [place] [address] Assigned Musculoskeletal Provider 10/09/22 05/01/24 Catherine Cm MD 6405 [facility] [address] [place], [place] 274205 Assigned Heart and Vascular Provider 11/13/22 05/27/23 Sydnie Martinez RN Personal Advocate & Liaison (PAL) Family Medicine 03/28/23 07/31/23 Alfonso Renteria MD 5775 [facility] 200 [place], [place] 695616 Assigned Neuroscience Provider 04/02/23 09/29/24 Cheng Todd PA-C [address] [place] [address]93 Assigned PCP 04/30/23 07/15/23 Radha Lomeli APRN BUSINESS LIAISON MANAGER [address] [place] [address] Assigned Heart and Vascular Provider 05/28/23 11/29/24 Jelena David OD [address] [place] [address] MD Ophthalmology 06/15/23 Pao Joseph, VJ Personal Advocate & Liaison (PAL) Nurse 08/01/23 11/07/23 Esha Grimm PA-C [address] [place] [phone] Assigned PCP 07/16/23 Valery Veronica PA-C [address] [place] [address] 045295 Physician Bolting Machine Operator Dermatology 09/19/23 Rey Tay MD [address] [place] [address] 185125 Gastroenterology 09/20/23 Rocky Zepeda DO [address] [place] [address] 418615 Physician Gastroenterology 09/20/23 Philip Dumont MD [address] [place] [address] 405795 Physician Ophthalmology 09/22/23 Meredith Carrera PA-C [address] [place] [address] 065915 Assigned Gastroenterology Provider 11/01/23 Neil Kent MD [address] [place] [address] Dermatology 11/02/23 [place] [address] [place] [address] Neurological Surgery 12/26/23 Audrey Waite PA-C [address] [place] [address] Physician Bolting Machine Operator Dermatology 02/28/24 Valery Veronica PA-C 346695 [place] [address] Physician Bolting Machine Operator Dermatology 04/10/24 Herminia Hatch MD [address] [place] [address] Assigned Rheumatology Provider 07/02/24 Jelena David OD [address] [place] [address] [place] [address] Ophthalmology 08/30/24 [place] [address] [place] [address] Assigned Neuroscience Provider 09/30/24 Maru Man PA-C [address] [place] [address] Physician Bolting Machine Operator Dermatology 10/03/24 Maru Man PA-C [address] [place] [address] Physician Bolting Machine Operator Dermatology 10/22/24 Jelena David OD [address] [facility] [place] [address] Assigned Surgical Provider 10/31/24 Fabiano Correa NP [address] [address] Assigned Heart and Vascular Provider 11/30/24 documented as of this encounter
--- OUTSIDE RECORDS SUMMARY | 2024-12-31 03:16 | XMS_ITS | Encounter Summary ---
Author Organization [facility] Address [address] [place] [address]40 Care Team Providers Care Skin Washer Name Role Phone Diana Desir [facility] Unavailable Rain Galaviz PA-C Unavailable [phone] Tavia Wyatt MD Unavailable [phone] Erica Farrell APRN PATIENT CARE PROVIDER Unavailable Rich Barrett MD Unavailable [phone] Neil Kent MD Unavailable Diana Desir [facility] Unavailable Livan Sharif MD Unavailable Catherine Cm MD Unavailable + Valery Veronica PA-C Unavailable Brea Quinn SENIOR ENERGY TRADER PATIENT CARE PROVIDER Unavailable Brea Quinn SENIOR ENERGY TRADER PATIENT CARE PROVIDER Unavailable Jose Francisco Johnson MD Unavailable Alfonso Renteria MD Unavailable [phone] Esha Grimm PA-C Primary Care Provider Radha Lomeli APRN PATIENT CARE PROVIDER Unavailable Jelena David OD Unavailable [phone] Esha Grimm PA-C Unavailable [phone] Valery Veronica PA-C Unavailable Rey Tay [...] Contact Info) Description 03/06/2024 MyC Medical Advice [facility] [address] [address] Ebony Cid, ARLENE PATIENT CARE PROVIDER 500 [place] [address] Social History Tobacco Use Types Packs/Day Years [...] do you attend [facility] or protestant services? 1 to 4 [...] Score 1 02/07/2024 [facility] - Occupational [...] exercise at this level? 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 Gender Identity Female 03/02/2021 5:45 PM CDT Sexual Orientation Straight 02/28/2020 12 :51 AM CDT documented as of this encounter Plan of Treatment Upcoming Encounters Date Type Department Care Team (Latest Contact Info) Description 01/02/2025 1:10 PM CDT Ancillary Procedure [facility] [address] [place] [address] Lauren Claudio PA-C [address] [place] [address] 01/17/2025 10:00 AM CDT Appointment [facility] Respiratory [address] [place] [phone] Lauren Claudio PA-C [address] [place] [address] 04/16/2025 11:00 AM CDT Virtual Visit [facility] [address] 4th [place] [phone] Meredith Carrera PA-C 909 [place] [address] documented as of this encounter Visit Diagnoses [...] as of this encounter Care Teams Skin Washer Relationship Specialty Start Date End Date Esha Grimm PA-C [address] [place] [phone] PCP - General Family Medicine 05/04/23 Diana Desir [facility] 3033 [place] [address] Pharmacist Pharmacist 04/17/21 Rain Galaviz PA-C [address] [place] [address] [address] [place] [address] Physician Certified Medical Technician Assistant Dermatology 04/28/21 Tavia Wyatt MD [address] [place] [address] [address] [facility] [address] Dermatology 07/14/21 Erica Farrell APRN PATIENT CARE PROVIDER [address] [place] 127215 Nurse Practitioner Cardiovascular Disease 09/09/21 Rich Barrett MD [address] [place] 562095 Physician Ophthalmology 01/21/22 Neil Kent MD 500 [place], [place] 704915 Dermatology 02/24/22 [facility] 3033 [place] [address] Assigned MTM Pharmacist 04/07/22 Livan Sharif MD [address] [place] [address] Cardiovascular Disease 05/14/22 Catherine Cm MD [address] [facility] [address] [place] [address] Cardiovascular Disease 07/21/22 Valery Veronica PA-C 909 [place] [address] Physician Certified Medical Technician Assistant Dermatology 07/21/22 Brea Quinn APRN PATIENT CARE PROVIDER [address] [place] [address] Nurse Practitioner Dermatology 09/21/22 Brea Quinn APRN PATIENT CARE PROVIDER 6401 [place] [address] Assigned Surgical Provider 10/09/22 05/01/24 [place] [address] [address] [facility] 300 [place] [address] Assigned Musculoskeletal Provider 10/09/22 05/01/24 Alfonso Renteria MD 5775 [facility] 200 [place], [place] 627836 Assigned Neuroscience Provider 04/02/23 09/29/24 Radha Lomeli APRN PATIENT CARE PROVIDER 6405 [facility] [address] [place] [address] Assigned Heart and Vascular Provider 05/28/23 11/29/24 Jelena David OD [address] [facility] [place] [address] Ophthalmology 06/15/23 Esha Grimm PA-C [address] [place] [address]-052783 Assigned PCP 07/16/23 Valery Veronica PA-C [address] [place] [address] Physician Certified Medical Technician Assistant Dermatology 09/19/23 Rey Tay MD [address] [place] [address] MD Gastroenterology 09/20/23 Rocky Zepeda DO [address] [place] [address] 298695 Physician Gastroenterology 09/20/23 Philip Dumont MD [address] [place] [address] 474535 Physician Ophthalmology 09/22/23 Meredith Carrera PA-C [address] [place] [address] 073045 Assigned Gastroenterology Provider 11/01/23 Neil Kent MD [address] [address] Dermatology 11/02/23 [place] [address] [place], [place] 915937 Neurological Surgery 12/26/23 Audrey Waite PA-C [address] [place] [address] 165265 Physician Certified Medical Technician Assistant Dermatology 02/28/24 Valery Veronica PA-C 604716 [facility] [place] [address] Physician Certified Medical Technician Assistant Dermatology 04/10/24 Herminia Hatch MD [address] [place] [address] 77259125 Assigned Rheumatology Provider 07/02/24 Jelena David OD [address] [place] [address] [place] [address] Ophthalmology 08/30/24 [place] [address] [place] [address] Assigned Neuroscience Provider 09/30/24 Maru Man PA-C [address] [place] [address] Physician Certified Medical Technician Assistant Dermatology 10/03/24 Maru Man PA-C [address] [place] [address] Physician Certified Medical Technician Assistant Dermatology 10/22/24 Jelena David OD [address] [place] [address] [place] [address] Assigned Surgical Provider 10/31/24 Fabiano Correa NP [address] [place] [address] Assigned Heart and Vascular Provider 11/30/24 documented as of this encounter
--- OUTSIDE RECORDS SUMMARY | 2024-12-31 03:16 | XMS_ITS | Encounter Summary ---
Author Organization [facility] Address [address] [place] [address] Care Team Providers Care Junior Software Engineer Name Role Phone Lita Oseguera Unavailable Unavailable Marija Edgar APRN VINYL DIPPER Primary Care Provider + Marija Edgar APRN VINYL DIPPER Unavailable [phone] Mynor Broussard MD Unavailable [phone] Keisha Dotson MD Unavailable Galo Burrell MD Unavailable Unavailable Diana Desir [facility] Unavailable [phone] Rain Galaviz PA-C Unavailable Summer Lara MD Unavailable [phone] Tavia Wyatt MD Unavailable Johnny Murillo MD Unavailable [phone] Erica Farrell APRN VINYL DIPPER Unavailable Tavia Wyatt MD Unavailable Diana Desir [facility] Unavailable Rich Barrett MD Unavailable [phone] Neil Kent MD Unavailable Roney StoryM Unavailable Erica Farrell APRN VINYL DIPPER Unavailable Diana Desir [facility] Unavailable Jelena David OD Unavailable Galo Burrell MD Unavailable Unavailable Livan Sharif MD Unavailable Livan Sharif MD Unavailable IsCatherine hobbs MD Unavailable + Valery Veronica PA-C Unavailable [phone] Catherine Cm MD Unavailable + Johnny Murillo MD Unavailable [phone] Brea Quinn DISTRICT RESOURCE OFFICER VINYL DIPPER Unavailable [phone] Brea Quinn DISTRICT RESOURCE OFFICER VINYL DIPPER Unavailable [phone] Jose Francisco Johnson MD Unavailable Livan Sharif MD Unavailable + IsCatherine hobbs MD Unavailable + Sydnie Martinez RN Unavailable Unavailable Alfonso Renteria MD Unavailable Esha Grimm PA-C Primary Care Provider Cheng Todd PA-C Unavailable Radha Lomeli DISTRICT RESOURCE OFFICER VINYL DIPPER Unavailable [phone] Jelena David OD Unavailable Pao Joseph RN Unavailable Unavailable Esha Grimm-C Unavailable [phone] Valery Veronica PA-C Unavailable [phone] Rey Tay MD Unavailable Rocky Zepeda DO Unavailable Philip Dumont MD Unavailable [phone] Debi Meredith A PA-C Unavailable [phone] Neil Kent MD Unavailable Juan Pablo Emmanuel MD Unavailable Audrey Waite PA-C Unavailable [phone] Valery Veronica PA-C Unavailable [phone] Herminia Hatch MD Unavailable Jelena David OD Unavailable Juan Pablo Emmanuel MD Unavailable [phone] Maru Man-C Unavailable [phone] Maru Man-C Unavailable [phone] Jelena David OD Unavailable Fabiano Correa BUILDING MAINTENANCE MECHANIC Unavailable [phone] Encounter Details Date Type Department Care Team (Late st Contact Info) Description 11/16/2021 [facility] Medical Advice [address] [address] Diana Desir, [facility] [address] [place], [place] [phone] Social History Tobacco Use Types Packs/Day Years [...] How often do you attend spiritism or hindu serv ices? Never 09/22/2021 Do [...] Recorded PHQ-2 Score 2 09/22/2021 [facility] of Occupat [...] in a alf (including now)? No 09/22/2021 [place] Depression Scale Answer Date Recorded [place] Depression Score 5 01/14/2021 Last EPDS Self Harm Result Not on file 01/14 Education Answer Date Recorded What is the highest level of school you have completed or the highest degree you have received? 12th grade 08/07/2020 Comments No Sex and Gender Information Value Date Recorded Sex Assigned at Female 03/02/2021 5:45 PM CDT Legal Sex Female 4:13 AM GHOST WRITER Gender Identity Female 03/02/2021 5:45 PM [...] Description 01/02/2025 1:10 PM CDT Ancillary Procedure [address] [address] Lauren Claudio PA-C [address] [place] [address] 01/17/2025 10:00 AM CDT Appointment [facility] Respiratory [address] [place] [phone] Lauren Claudio PA-C [address] [place] [address] 04/16/2025 11:00 AM CDT Virtual Visit [facility] [address] [place] [phone] Meredith Carrera PA-C 909 [place] [address] documented as of this encounter Visit Diagnoses Not on filedocumented in this encounter Additional Health Concerns Infection Onset Date Last Indicated Resolved Time Rule Out COVID-19 12/18/2021 12/18/2021 12/19/2021 11:34 AM CDT Rule Out COVID-19 02/24/2022 02/24/2022 02/25/2022 1:08 PM CDT Rule Out COVID-19 04/26/2022 04/26/2022 04/26/2022 6:47 AM CDT Rule Out COVID-19 05/17/2022 05/17/2022 05/17/2022 10:20 PM GHOST WRITER Rule Out COVID-19 06/09/2022 06/09/2022 06/09/2022 9:35 AM GHOST WRITER COVID-19 06/09/2022 06/09/2022 06/30/2022 11:4 1 PM GHOST WRITER Rule Out COVID-19 11/10/2022 11/10/2022 11/11/2022 [...] as of this encounter Care Teams Junior Software Engineer Relationship Specialty Start Date End Date Marija Edgar APRN VINYL DIPPER PCP - General Nurse Practitioner 04/30/20 04/14/23 Esha Grimm PA-C [address] [place] [phone] PCP - General Family Medicine 05/04/23 Lita Oseguera Personal Advocate & Liaison (PAL) 02/28/20 03/27/23 Marija Edgar APRN VINYL DIPPER Assigned PCP 06/08/20 04/29/23 Mynor Broussard MD [address] [address] Assigned Surgical Provider 06/01/20 11/28/21 Keisha Dotson MD 9 [place] [address] Assigned Neuroscience Provider 06/04/20 04/01/23 Galo Burrell MD Assigned Heart and Vascular Provider 10/05/20 04/02/22 [facility] [address] [place] [address] Pharmacist Pharmacist 04/17/21 Rain Galaviz PA-C [address] [facility] [place] [address] Physician Academic Dean Dermatology 04/28/21 Summer Lara MD [address] [place] [address] [phone] Assigned OBGYN Provider 05/31/21 2 Tavia Wyatt MD [address] [place] [address] 308584 Dermatology 07/14/21 Johnny Murillo MD [address] [place], [place] 731084 Assigned Musculoskeletal Provider 08/30/21 03/17/22 Erica Farrell APRN VINYL DIPPER 6405 [facility] [address] [place], [place] 95[address] Nurse Practitioner Cardiovascular Disease 09/09/21 Tavia Wyatt MD [address] [place], [place] 075840 Assigned Surgical Provider 11/29/21 05/07/22 Diana Desir, [facility] [address] [place] [address] Assigned MTM Pharmacist 01/02/22 Rich Barrett MD [address] [place] [address] Physician Ophthalmology 01/21/22 Neil Kent MD 500 [place], [place] 430385 Dermatology 02/24/22 Roney Story DPM [address] [facility] [address] [place], [place] 322967 Assigned Musculoskeletal Provider 03/20/22 08/13/22 Erica Farrell APRN VINYL DIPPER 1700 [place] [address] Assigned Heart and Vascular Provider 04/03/22 04/16/22 Diana Desir, [facility] [address] [place] [address] Assigned MTM Pharmacist 04/07/22 Jelena David OD 3305 [facility] [place] [address] Assigned Surgical Provider 05/08/22 10/08/22 Galo Burrell MD Assigned Heart and Vascular Provider 04/17/22 06/11/22 Livan Sharif MD 6405 [facility] [address] [place] [address] Cardiovascular Disease 05/14/22 Livan Sharif MD 6405 [facility] [address] [place] [address] Assigned Heart and Vascular Provider 06/12/22 07/23/22 Catherine Cm MD 6405 [facility] [address] [place] [address] Cardiovascular Disease 07/21/22 Valery Veronica, PA-C [address] [place] [address] Physician Academic Dean Dermatology 07/21/22 Catherine Cm MD [address] [place] 7253800 [place] [address] Assigned Heart and Vascular Provider 07/24/22 11/05/22 Johnny Murillo MD [address] [place] [address] Assigned Musculoskeletal Provider 08/14/22 10/08/22 Brea Quinn APRN VINYL DIPPER [address] [place] [address] Nurse Practitioner Dermatology 09/21/22 Brea Quinn APRN VINYL DIPPER [address] [place] [address] [place] [address] Assigned Surgical Provider 10/09/22 05/01/24 [place] [address] [place] [address] Assigned Musculoskeletal Provider 10/09/22 05/01/24 Livan Sharif MD [address] [place] [address] [place] [address] Assigned Heart and Vascular Provider 11/06/22 11/12/22 Catherine Cm MD [address] [address] [place] [address] Assigned Heart and Vascular Provider 11/13/22 05/27/23 Sydnie Martinez RN Personal Advocate & Liaison (PAL) Family Medicine 03/28/23 07/31/23 Alfonso Renteria MD 5775 [facility] 200 [place] [address] Assigned Neuroscience Provider 04/02/23 09/29/24 Cheng Todd PA-C [address] [place] [address] Assigned PCP 04/30/23 07/15/23 Radha Lomeli, ARLENE VINYL DIPPER [address] [place] [address] Assigned Heart and Vascular Provider 05/28/23 11/29/24 Jelena David OD [address] [place] [address] [place] [address] Ophthalmology 06/15/23 Pao Joseph, VJ Personal Advocate & Liaison (PAL) Nurse 08/01/23 11/07/23 Esha Grimm PA-C [address] [place] [address] Assigned PCP 07/16/23 Valery Veronica PA-C [address] [place] [address] 587675 Physician Academic Dean Dermatology 09/19/23 Rey Tay MD [address] [place] [address] 150005 MD Gastroenterology 09/20/23 Rocky Zepeda DO [address] [place] [address] 798675 Physician Gastroenterology 09/20/23 Philip Dumont MD [address] [place] [address] 180605 Physician Ophthalmology 09/22/23 Meredith Carrera PA-C [address] [place] [address] Assigned Gastroenterology Provider 11/01/23 Neil Kent MD [address] [address] Dermatology 11/02/23 [place] [address] [address] [facility] [place] [address] Neurological Surgery 12/26/23 Audrey Waite PA-C [address] [place] [address] Physician Academic Dean Dermatology 02/28/24 Valery Veronica PA-C 680745 [facility] [address] Physician Academic Dean Dermatology 04/10/24 Herminia Hatch MD [address] [place] [address] Assigned Rheumatology Provider 07/02/24 Jelena David OD [address] [place] [address] [place] [address] MD Ophthalmology 08/30/24 [place] [address] [place] [address] Assigned Neuroscience Provider 09/30/24 Maru Man PA-C [address] [place] [address] Physician Academic Dean Dermatology 10/03/24 Maru Man PA-C [address] [place] [address] Physician Academic Dean Dermatology 10/22/24 Jelena David OD [address] [place] [address] [place] [address] Assigned Surgical Provider 10/31/24 Fabiano Correa NP [address] [place] [address] Assigned Heart and Vascular Provider 11/30/24 documented as of this encounter
--- OUTSIDE RECORDS SUMMARY | 2024-12-31 03:16 | XMS_ITS | Encounter Summary ---
Author Organization [facility] Address [address] [place] [address] Care Team Providers Care Counter Sales Representative Name Role Phone Lita Oseguera Unavailable Unavailable Marija Edgar APRN FISHERY DIVISION CHIEF Primary Care Provider + Marija Edgar APRN FISHERY DIVISION CHIEF Unavailable Mynor Broussard MD Unavailable [phone] Keisha Dotson MD Unavailable Galo Burrell MD Unavailable Unavailable Diana Desir [facility] Unavailable Rain Galaviz PA-C Unavailable Summer Lara MD Unavailable [phone] Tavia Wyatt MD Unavailable Johnny Murillo MD Unavailable Erica Farrell APRN FISHERY DIVISION CHIEF Unavailable Teresita Bena [facility] Unavailable Tavia Wyatt MD Unavailable Diana Desir [facility] Unavailable [phone] Rich Barrett MD Unavailable [phone] Neil Kent MD Unavailable Roney Story DPM Unavailable Erica Farrell SUPERVISOR SELF SERVICE STORE FISHERY DIVISION CHIEF Unavailable Diana Desir [facility] Unavailable [phone] Jelean David OD Unavailable Galo Burrell MD Unavailable Unavailable Livan Sharif MD Unavailable + Livan Sharif MD Unavailable + Catherine Cm MD Unavailable + Valery Veronica PA-C Unavailable [phone] Catherine Cm MD Unavailable + Johnny Murillo MD Unavailable [phone] Brea Quinn SUPERVISOR SELF SERVICE STORE FISHERY DIVISION CHIEF Unavailable [phone] Brea Quinn SUPERVISOR SELF SERVICE STORE FISHERY DIVISION CHIEF Unavailable [phone] Jose Francisco Johnson MD Unavailable Livan Sharif MD Unavailable + IsCatherine hobbs MD Unavailable + Sydnie Martinez RN Unavailable Unavailable Alfonso Renteria MD Unavailable Esha Grimm-C Primary Care Provider Cheng Todd PA-C Unavailable Radha Lomeli SUPERVISOR SELF SERVICE STORE FISHERY DIVISION CHIEF Unavailable [phone] Jelena David OD Unavailable Pao Joseph RN Unavailable Unavailable Esha Grimm-C Unavailable [phone] JeremíasValery damon PA-C Unavailable [phone] Rey Tay MD Unavailable Rocky Zepeda DO Unavailable Philip Dumont MD Unavailable Meredith Carrera PA-C Unavailable [phone] Neil Kent MD Unavailable Juan Pablo Emmanuel MD Unavailable Audrey Waite PA-C Unavailable [phone] Valery Veronica PA-C Unavailable Herminia Hatch MD Unavailable Jelena David OD Unavailable [phone] Juan Pablo Emmanuel MD Unavailable [phone] Maru Man-C Unavailable [phone] Maru Man-C Unavailable [phone] Jelena David OD Unavailable [phone] Fabiano Correa NP Unavailable [phone] Encounter Details Date Type Department Care Team (Late st Contact Info) Description 09/02/2021 [facility] Medical [address] [address] Diana Desir, [facility] [address] [place] [address] Social History Tobacco Use Types Packs/Day Years [...] Answer Date Recorded PHQ-2 Score 0 04/02/2021 [facility] of Occupat ional Health - Occupational Stress [...] in a penitentiary (including now)? No 08/11/2020 [place] Depression Scale [...] PM CDT Legal Sex Female 4:13 AM MATERIAL HANDLER FLOORPERSON Gender Identity Female 03/02/2021 5:45 PM CDT Sexual Orientation Straight 02/28/2020 12 :51 AM CDT COVID-19 Exposure Response Date Recorded In the last month, have you been in contact with someone who was confirmed or suspected to have Coronavirus / COVID-19? No / Unsure 09/02/2021 12:26 PM MATERIAL HANDLER FLOORPERSON documented as of this encounter Plan of Treatment Upcoming Encounters Date Type Department Care Team (Latest Contact Info) Description 01/02/2025 1:10 PM CDT Ancillary Procedure [facility] [address] [place] [address] Lauren Claudio PA-C [address] [place] [address] 01/17/2025 10:00 AM CDT Appointment [facility] Respiratory [address] [place] [phone] Lauren Claudio PA-C [address] [place] [address] 04/16/2025 11:00 AM CDT Virtual Visit [facility] [address]th [place] [phone] Meredith Carrera PA-C [address] [place] [address] documented as of this encounter Visit Diagnoses Not on filedocumented in this encounter Additional Health Concerns Infection Onset Date Last Indicated Resolved Time Rule Out COVID-19 12/18/2021 12/18/2021 12/19/2021 11:34 AM CDT Rule Out COVID-19 02/24/2022 02/24/2022 02/25/2022 1:08 PM CDT Rule Out COVID-19 04/26/2022 04/26/2022 04/26/2022 6:47 AM CDT Rule Out COVID-19 05/17/2022 05/17/2022 05/17/2022 10:20 PM MATERIAL HANDLER FLOORPERSON Rule Out COVID-19 06/09/2022 06/09/2022 06/09/2022 9:35 AM MATERIAL HANDLER FLOORPERSON COVID-19 06/09/2022 06/09/2022 06/30/2022 11:4 1 PM MATERIAL HANDLER FLOORPERSON Rule Out COVID-19 11/10/2022 11/10/2022 11/11/2022 12:17 [...] documented as of this encounter Care Teams Counter Sales Representative Relationship Specialty Start Date End Date Marija Edgar APRN FISHERY DIVISION CHIEF PCP - General Nurse Practitioner 04/30/20 04/14/23 Esha Grimm PA-C [address] [place] [phone] PCP - General Family Medicine 05/04/23 Lita Oseguera Personal Advocate & Liaison (PAL) 02/28/20 03/27/23 Marija Edgar APRN FISHERY DIVISION CHIEF Assigned PCP 06/08/20 04/29/23 Mynor Broussard MD [address] [address] Assigned Surgical Provider 06/01/20 11/28/21 Keisha Dotson MD 909 [place] [address] Assigned Neuroscience Provider 06/04/20 04/01/23 Galo Burrell MD Assigned Heart and Vascular Provider 10/05/20 04/02/22 Diana Desir, [facility] [address] [place] [address] Pharmacist Pharmacist 04/17/21 Rain Galaviz PA-C [address] [place] [address] [place] [address] Physician Textile Conversion Manager Dermatology 04/28/21 Summer Lara MD [address] [place] [address] Assigned OBGYN Provider 05/31/21 2 Tavia Wyatt MD [address] [place] [address] Dermatology 07/14/21 Johnny Murillo MD [facility][note 3][address] [place] 8056000 [place] [address] Assigned Musculoskeletal Provider 08/30/21 03/17/22 Erica Farrell APRN FISHERY DIVISION CHIEF 6405 [facility] [address] [place] [address] Nurse Practitioner Cardiovascular Disease 09/09/21 Teresita Bean, [facility] [address] [place] [address] Pharmacist Pharmacist 09/24/21 09/29/21 Tavia Wyatt MD [address] [place] [address] Assigned Surgical Provider 11/29/21 05/07/22 Diana Desir [facility] [address] [place] [address] Assigned MTM Pharmacist 01/02/22 Rich Barrett MD [address] [place] [address] Physician Ophthalmology 01/21/22 Neil Kent MD [address] [place] [address] Dermatology 02/24/22 [place]oney [place] DPM [address] [facility] 300 [place] [address] Assigned Musculoskeletal Provider 03/20/22 08/13/22 Erica Farrell APRN FISHERY DIVISION CHIEF 1700 [place] [address] Assigned Heart and Vascular Provider 04/03/22 04/16/22 Diana Desir [facility] [address] [place] [address] Assigned MTM Pharmacist 04/07/22 Jelena David OD [address] [place] [address] [place] [address] Assigned Surgical Provider 05/08/22 10/08/22 Galo Burrell MD Assigned Heart and Vascular Provider 04/17/22 06/11/22 Livan Sharif MD [address] [place] [address] [place] [address] Cardiovascular Disease 05/14/22 Livan Sharif MD [address] [place] [address] [place] [address] Assigned Heart and Vascular Provider 06/12/22 07/23/22 Catherine Cm MD [address] [address] [place] [address] Cardiovascular Disease 07/21/22 Valery Veronica, PAUcheC [address] [place] [address] 342705 Physician Textile Conversion Manager Dermatology 07/21/22 Catherine Cm MD [address] [address] [place] [address] Assigned Heart and Vascular Provider 07/24/22 11/05/22 Johnny Murillo MD [facility][note 3][address] 599394 Assigned Musculoskeletal Provider 08/14/22 10/08/22 Brea Quinn APRN FISHERY DIVISION CHIEF [address] [place] [address] 148235 Nurse Practitioner Dermatology 09/21/22 Brea Quinn APRN FISHERY DIVISION CHIEF [address] [facility] [place] [address] Assigned Surgical Provider 10/09/22 05/01/24 [place] [address] [address] Assigned Musculoskeletal Provider 10/09/22 05/01/24 Livan Sharif MD [address] [facility] [place] [address] Assigned Heart and Vascular Provider 11/06/22 11/12/22 Catherine Cm MD [address] [place] 7127000 [place] [address] Assigned Heart and Vascular Provider 11/13/22 05/27/23 Sydnie Martinez RN Personal Advocate & Liaison (PAL) Family Medicine 03/28/23 07/31/23 Alfonso Renteria MD 5775 [facility] 200 [place] [address] Assigned Neuroscience Provider 04/02/23 09/29/24 Cheng Todd PA-C [address] [place] [address] [phone] Assigned PCP 04/30/23 07/15/23 Radha Lomeli APRN FISHERY DIVISION CHIEF [address] [place] [address] Assigned Heart and Vascular Provider 05/28/23 11/29/24 Jelena David OD [address] [facility] [place] [address] MD Ophthalmology 06/15/23 Pao Joseph, RN Personal Advocate & Liaison (PAL) Nurse 08/01/23 11/07/23 Esha Grimm PA-C [address] [place] [address] Assigned PCP 07/16/23 Valery Veronica PA-C [address] [place] [address] Physician Textile Conversion Manager Dermatology 09/19/23 Rey Tay MD [address] [place] [address] MD Gastroenterology 09/20/23 Rocky Zepeda DO [address] [place] [address] 532055 Physician Gastroenterology 09/20/23 Philip Dumont MD [address] [place] [address] 068085 Physician Ophthalmology 09/22/23 Meredith Carrera PA-C [address] [place] [address] 575155 Assigned Gastroenterology Provider 11/01/23 Neil Kent MD [address] 956340 Dermatology 11/02/23 [place] [address] [place] [address] [place] [address] Neurological Surgery 12/26/23 Audrey Waite PA-C 500 [place] [address] Physician Textile Conversion Manager Dermatology 02/28/24 Valery Veronica PA-C 419313 [address], [place] [address] Physician Textile Conversion Manager Dermatology 04/10/24 Herminia Hatch MD [address] [place] [address] [id number] Assigned Rheumatology Provider 07/02/24 Jelena David OD [address] [place] [address] [place] [address] Ophthalmology 08/30/24 [place] [address] [place] [address] [place] [address] Assigned Neuroscience Provider 09/30/24 Maru Man PA-C [address] [place] [address] Physician Textile Conversion Manager Dermatology 10/03/24 Maru Man PA-C [address] [place] [address] Physician Textile Conversion Manager Dermatology 10/22/24 Jelena David OD [facility]5 [facility] [place] [address] Assigned Surgical Provider 10/31/24 Fabiano Correa NP [address] [place] [address] Assigned Heart and Vascular Provider 11/30/24 documented as of this encounter
--- OUTSIDE RECORDS SUMMARY | 2024-12-31 03:16 | XMS_ITS | Encounter Summary ---
Author Organization [facility] Address [address] [place] [address] Care Team Providers Care Junior Estimator Name Role Phone Marija Edgar ARLENE GROUP FITNESS INSTRUCTOR Unavailable [phone] Diana Desir [facility] Unavailable [phone] Rain Galaviz PA-C Unavailable Tavia Wyatt MD Unavailable Erica Farrell APRN GROUP FITNESS INSTRUCTOR Unavailable Rich Barrett MD Unavailable [phone] Neil Kent MD Unavailable Diana Desir [facility] Unavailable [phone] Livan Sharif MD Unavailable Catherine Cm MD Unavailable + Valery Veronica PA-C Unavailable Brea Quinn APRN GROUP FITNESS INSTRUCTOR Unavailable Brea Quinn APRN GROUP FITNESS INSTRUCTOR Unavailable Jose Francisco Johnson MD Unavailable Catherine Cm MD Unavailable + Sydnie Martinez RN Unavailable Unavailable Alfonso Renteria MD Unavailable [phone] Esha Grimm PA-C Primary Care Provider Cheng Todd PA-C Unavailable Radha Lomeli APRN GROUP FITNESS INSTRUCTOR Unavailable Jelena David OD Unavailable Pao Joseph RN Unavailable Unavailable Esha Grimm PA-C Unavailable [phone] Valery Veronica PA-C Unavailable Rey Tay MD Unavailable Rocky Zepeda DO Unavailable Philip Dumont MD Unavailable Meredith Carrera PA-C Unavailable Neil Kent MD Unavailable Juan Pablo Emmanuel MD Unavailable Audrey Waite PA-C Unavailable Valery Veronica PA-C Unavailable Herminia Hatch MD Unavailable Jelena David OD Unavailable Juan Pablo Emmanuel MD Unavailable [phone] Maru Man PA-C Unavailable Maru Man PA-C Unavailable Jelena David OD Unavailable Fabiano Correa NP Unavailable Encounter Details Date Type Department Care Team (Late st Contact Info) Description 04/18/2023 [facility] [address] [place] [address] Mary Calvo Social History Tobacco [...] Score 0 03/10/2023 [facility] - Occupational Stress Questionnaire [...] exercise at this level? 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 Gender Identity Female 03/02/2021 5:45 PM [...] Description 01/02/2025 1:10 PM CDT Ancillary Procedure [facility] [id number] [place] [phone] Lauren Claudio PA-C [address] [place] [address] 01/17/2025 10:00 AM CDT Appointment [facility] Respiratory [address] [place] [phone] Lauren Claudio PA-C [address] [place] [address] 04/16/2025 11:00 AM CDT Virtual Visit [facility]ology [facility] [address] [phone] Meredith Carrera PA-C [address] [place] [address] documented as of this encounter Visit Diagnoses [...] as of this encounter Care Teams Junior Estimator Relationship Specialty Start Date End Date Esha Grimm PA-C [address] [place] [address] PCP - General Family Medicine 05/04/23 Marija Edgar APRN GROUP FITNESS INSTRUCTOR Assigned PCP 06/08/20 04/29/23 [facility] [address] [place] [address] Pharmacist Pharmacist 04/17/21 Rain Galaviz PA-C [address] [place] [address] [address] [place] [address] Physician Event Marketing Intern Dermatology 04/28/21 Tavia Wyatt MD [address] [place] [address] [address] [place] [address] Dermatology 07/14/21 Erica Farrell APRN GROUP FITNESS INSTRUCTOR [address] [place] [address] Nurse Practitioner Cardiovascular Disease 09/09/21 Rich Barrett MD [address] [place] [address] Physician Ophthalmology 01/21/22 Neil Kent MD 500 [place] [address] Dermatology 02/24/22 Diana Desir, [facility] [address] [place], [place] 328046 Assigned MTM Pharmacist 04/07/22 Livan Sharif MD [address] [facility] [address] [place], [place] [address] Cardiovascular Disease 05/14/22 Catherine Cm MD 6405 [facility] Sylvia [address] 517725 Cardiovascular Disease 07/21/22 Valery Veronica, PA-C 909 [place], [place] 8[address] Physician Event Marketing Intern Dermatology 07/21/22 Brea Quinn APRN GROUP FITNESS INSTRUCTOR 500 [place], [place] 462945 Nurse Practitioner Dermatology 09/21/22 Brea Quinn APRN GROUP FITNESS INSTRUCTOR [address] [place] [address] [place] 8[address]192 Assigned Surgical Provider 10/09/22 05/01/24 [place] [address] [place], [place] 379007 Assigned Musculoskeletal Provider 10/09/22 05/01/24 Catherine Cm MD [address] [place] [address] Assigned Heart and Vascular Provider 11/13/22 05/27/23 Sydnie Martienz RN Personal Advocate & Liaison (PAL) Family Medicine 03/28/23 07/31/23 Alfonso Renteria MD 5775 [facility] 200 [place] [address] Assigned Neuroscience Provider 04/02/23 09/29/24 Cheng Todd PA-C [address] [place] [address] [id number] Assigned PCP 04/30/23 07/15/23 Radha Lomeli APRN GROUP FITNESS INSTRUCTOR [address] [place], [place] 2[address] Assigned Heart and Vascular Provider 05/28/23 11/29/24 Jelena David OD [address] [facility] [place] [address] Ophthalmology 06/15/23 Pao Joseph, VJ Personal Advocate & Liaison (PAL) Nurse 08/01/23 11/07/23 Esha Grimm PA-C [address] [place] [phone] Assigned PCP 07/16/23 Valery Veronica PA-C [address] [place] [address] Physician Event Marketing Intern Dermatology 09/19/23 Rey Tay MD [address] [place] [address] MD Gastroenterology 09/20/23 Rocky Zepeda DO [address] [place] [address] Physician Gastroenterology 09/20/23 Philip Dumont MD [address] [place] [address] Physician Ophthalmology 09/22/23 Meredith Carrera PA-C [address] [place] [address] Assigned Gastroenterology Provider 11/01/23 Neil Kent MD [address] [address] Dermatology 11/02/23 [place] [address] [address] [facility] [place] [address] Neurological Surgery 12/26/23 Audrey Waite PA-C 500 [place] [address] Physician Event Marketing Intern Dermatology 02/28/24 Valery Veronica PA-C [address]37 [place] [address] Physician Event Marketing Intern Dermatology 04/10/24 Herminia Hatch MD [facility]5 [place], [place] 613[address] Assigned Rheumatology Provider 07/02/24 Jelena David, SONJA [address] [facility] [place] [address] Ophthalmology 08/30/24 [place] [address] [place] [address] Assigned Neuroscience Provider 09/30/24 Maru Man PA-C [address] [place] [address] Physician Event Marketing Intern Dermatology 10/03/24 Maru Man PA-C [address] [place] [address] Physician Event Marketing Intern Dermatology 10/22/24 Jelena David, SONJA [address] [facility] [place] [address] Assigned Surgical Provider 10/31/24 Fabiano Correa, BRYCE [address] [place] [address] Assigned Heart and Vascular Provider 11/30/24 documented as of this encounter
--- OUTSIDE RECORDS SUMMARY | 2024-12-31 03:16 | XMS_ITS | Encounter Summary ---
Author Organization [facility] Address [address] [place] [address] Care Team Providers Care Sort Line Worker Name Role Phone Lita Oseguera Unavailable Unavailable Marija Edgar APRN PROPERTY UNDERWRITER Primary Care Provider + Marija Edgar APRN PROPERTY UNDERWRITER Unavailable [phone] Mynor Broussard MD Unavailable [phone] Keisha Dotson MD Unavailable [phone] Galo Burrell MD Unavailable Unavailable Diana Desir [facility] Unavailable Rain Galaviz PA-C Unavailable Summer Lara MD Unavailable [phone] Tavia Wyatt MD Unavailable Johnny Murillo MD Unavailable Erica Farrell APRN PROPERTY UNDERWRITER Unavailable Tavia Wyatt MD Unavailable Diana Desir [facility] Unavailable Rich Barrett MD Unavailable [phone] Neil Kent MD Unavailable Roney StoryM Unavailable Erica Farrell APRN PROPERTY UNDERWRITER Unavailable Diana Desir [facility] Unavailable Jelena David OD Unavailable [phone] Galo Burrell MD Unavailable Unavailable Livan Sharif MD Unavailable Livan Sharif MD Unavailable IsCatherine hobbs MD Unavailable + Valery Veronica PA-C Unavailable [phone] Catherine Cm MD Unavailable + Johnny Murillo MD Unavailable [phone] Brea Quinn MACERATOR OPERATOR PROPERTY UNDERWRITER Unavailable [phone] Brea Quinn MACERATOR OPERATOR PROPERTY UNDERWRITER Unavailable [phone] Jose Francisco Johnson MD Unavailable Livan Sharif MD Unavailable + IsCatherine hobbs MD Unavailable + Sydnie Martinez RN Unavailable Unavailable Alfonso Renteria MD Unavailable Esha Grimm PA-C Primary Care Provider Cheng Todd PA-C Unavailable Radha Lomeli MACERATOR OPERATOR PROPERTY UNDERWRITER Unavailable [phone] Jelena David OD Unavailable Pao Joseph RN Unavailable Unavailable Esha Grimm-C Unavailable [phone] Valery Veronica PA-C Unavailable [phone] Rey Tay MD Unavailable Rocky Zepeda DO Unavailable Philip Dumont MD Unavailable [phone] Debi Meredith A PA-C Unavailable [phone] Neil Kent MD Unavailable Juan Pablo Emmanuel MD Unavailable [phone] Audrey Waite PA-C Unavailable [phone] Valery Veronica PA-C Unavailable Herminia Hatch MD Unavailable Jelena David OD Unavailable Juan Pablo Emmanuel MD Unavailable [phone] Maru Man-C Unavailable [phone] Maru Man-C Unavailable [phone] Jelena David OD Unavailable Fabiano Correa FLOOR COVERINGS SALESPERSON Unavailable [phone] Encounter Details Date Type Department Care Team (Late st Contact Info) Description 11/04/2021 [facility] [place] [place] Medical Advice [address] [address] Diana Desir, [facility] [address] [place], [place] [phone] Social History Tobacco Use Types Packs/Day Years [...] How often do you attend quaker or yazidism serv ices? Never 09/22/2021 Do [...] Answer Date Recorded PHQ-2 Score 2 09/22/2021 [facility] [...] a care home (including now)? No 09/22/2021 [place] Depression Scale Answer Date Recorded [place] Depression Score 5 01/14/2021 Last EPDS Self Harm Result Not on file 01/14 Education Answer Date Recorded What is the highest level of school you have completed or the highest degree you have received? 12th grade 08/07/2020 Comments No Sex and Gender Information Value Date Recorded Sex Assigned at Female 03/02/2021 5:45 PM CDT Legal Sex Female 4:13 AM WEIGHT LOSS COUNSELOR Gender Identity Female 03/02/2021 5:45 PM [...] Description 01/02/2025 1:10 PM CDT Ancillary Procedure [address] [address] Lauren Claudio PA-C [address] [place] [address] 01/17/2025 10:[address] [facility] Respiratory [address] [place] [phone] Lauren Claudio PA-C [address] [place] [address] 04/16/2025 11:00 AM CDT Virtual Visit [facility] Gastroenterology Clinic [address] [place] [phone] Meredith Carrera PA-C 909 [place] [address] documented as of this encounter Visit Diagnoses Not on filedocumented in this encounter Additional Health Concerns Infection Onset Date Last Indicated Resolved Time Rule Out COVID-19 12/18/2021 12/18/2021 12/19/2021 11:34 AM CDT Rule Out COVID-19 02/24/2022 02/24/2022 02/25/2022 1:08 PM CDT Rule Out COVID-19 04/26/2022 04/26/2022 04/26/2022 6:47 AM CDT Rule Out COVID-19 05/17/2022 05/17/2022 05/17/2022 10:20 PM WEIGHT LOSS COUNSELOR Rule Out COVID-19 06/09/2022 06/09/2022 06/09/2022 9:35 AM WEIGHT LOSS COUNSELOR COVID-19 06/09/2022 06/09/2022 06/30/2022 11:4 1 PM WEIGHT LOSS COUNSELOR Rule Out COVID-19 11/10/2022 11/10/2022 11/11/2022 [...] documented as of this encounter Care Teams Sort Line Worker Relationship Specialty Start Date End Date Marija Edgar APRN PROPERTY UNDERWRITER PCP - General Nurse Practitioner 04/30/20 04/14/23 Esha Grimm PA-C [address] [place] [phone] PCP - General Family Medicine 05/04/23 Lita Oseguera Personal Advocate & Liaison (PAL) 02/28/20 03/27/23 Marija Edgar APRN PROPERTY UNDERWRITER Assigned PCP 06/08/20 04/29/23 Mynor Broussard MD [address] [address] Assigned Surgical Provider 06/01/20 11/28/21 Keisha Dotson MD 9 [place] [address] Assigned Neuroscience Provider 06/04/20 04/01/23 Galo Burrell MD Assigned Heart and Vascular Provider 10/05/20 04/02/22 [facility] [address] [place] [address] Pharmacist Pharmacist 04/17/21 Rain Galaviz PA-C [address] [facility] [place] [address] Physician Bacteriologist Pharmaceutical Dermatology 04/28/21 Summer Lara MD [address] [place] [address] 308654 Assigned OBGYN Provider 05/31/21 2 Tavia Wyatt MD [address] [place] [address] 790884 Dermatology 07/14/21 Johnny Murillo MD [address] [place], [place] 641184 Assigned Musculoskeletal Provider 08/30/21 03/17/22 Erica Farrell APRN PROPERTY UNDERWRITER 6[address] [facility] [address] [place], [place] 303275 Nurse Practitioner Cardiovascular Disease 09/09/21 Tavia Wyatt MD [address] [place], [place] 896360 Assigned Surgical Provider 11/29/21 05/07/22 Diana Desir, [facility] 30[address] [place] [address] Assigned MTM Pharmacist 01/02/22 Rich Barrett MD [address]33 [place] [address] Physician Ophthalmology 01/21/22 Neil Kent MD 500 [place], [place] 960485 Dermatology 02/24/22 Roney Story DPM [address] [facility] [address] [place], [place] [address] Assigned Musculoskeletal Provider 03/20/22 08/13/22 Erica Farrell APRN PROPERTY UNDERWRITER [address] [place] [address] Assigned Heart and Vascular Provider 04/03/22 04/16/22 Diana Desir, [facility] [address] [place] [address] Assigned MTM Pharmacist 04/07/22 Jelena David OD [address] [facility] [place] [address] Assigned Surgical Provider 05/08/22 10/08/22 Galo Burrell MD Assigned Heart and Vascular Provider 04/17/22 06/11/22 Livan Sharif MD 6405 [facility] [address] [place] [address] Cardiovascular Disease 05/14/22 Livan Sharif MD 6405 [facility] [address] [place] [address] Assigned Heart and Vascular Provider 06/12/22 07/23/22 Catherine Cm MD 6405 [facility] [address] [place] [address] Cardiovascular Disease 07/21/22 Valery Veronica, PA-C [address] [place] [address] Physician Bacteriologist Pharmaceutical Dermatology 07/21/22 Catherine Cm MD [address] [place] [id number] [place] [address] Assigned Heart and Vascular Provider 07/24/22 11/05/22 Johnny Murillo MD [address] [place] [address] Assigned Musculoskeletal Provider 08/14/22 10/08/22 Brea Quinn APRN PROPERTY UNDERWRITER [address] [place] [address] Nurse Practitioner Dermatology 09/21/22 Brea Quinn APRN PROPERTY UNDERWRITER [address] [place] [address] [place] [address] Assigned Surgical Provider 10/09/22 05/01/24 [place] [address] [place] [address] Assigned Musculoskeletal Provider 10/09/22 05/01/24 Livan Sharif MD [address] [place] [address] Assigned Heart and Vascular Provider 11/06/22 11/12/22 Catherine Cm MD [address] [place] [address] Assigned Heart and Vascular Provider 11/13/22 05/27/23 Sydnie Martinez RN Personal Advocate & Liaison (PAL) Family Medicine 03/28/23 07/31/23 Alfonso Renteria MD 5775 [facility] 200 [place] [address] Assigned Neuroscience Provider 04/02/23 09/29/24 Cheng Todd PA-C [address] [place] [address] Assigned PCP 04/30/23 07/15/23 Radha Lomeli, ARLENE PROPERTY UNDERWRITER [address] [place] [address] Assigned Heart and Vascular Provider 05/28/23 11/29/24 Jelena David OD [address] [place] [address] [place] [address] Ophthalmology 06/15/23 Pao Joseph, VJ Personal Advocate & Liaison (PAL) Nurse 08/01/23 11/07/23 Esha Grimm PA-C [address] [place] [address] Assigned PCP 07/16/23 Valery Veronica PA-C [address] [place] [address] 584235 Physician Bacteriologist Pharmaceutical Dermatology 09/19/23 Rey Tay MD [address] [place] [address] 221625 MD Gastroenterology 09/20/23 Rocky Zepeda DO [address] [place] [address] 463255 Physician Gastroenterology 09/20/23 Philip Dumont MD [address] [place] [address] 685185 Physician Ophthalmology 09/22/23 Meredith Carrera PA-C [address] [place] [address] Assigned Gastroenterology Provider 11/01/23 Neil Kent MD [address] [address] Dermatology 11/02/23 [place] [address] [address] [facility] [place] [address] Neurological Surgery 12/26/23 Audrey Waite PA-C [address] [place] [address] Physician Bacteriologist Pharmaceutical Dermatology 02/28/24 Valery Veronica PA-C 492307 [facility] [place] [address] Physician Bacteriologist Pharmaceutical Dermatology 04/10/24 Herminia Hatch MD [address] [place] [address] Assigned Rheumatology Provider 07/02/24 Jelena David OD [address] [place] [address] [place] [address] MD Ophthalmology 08/30/24 [place] [address] [place] [address] Assigned Neuroscience Provider 09/30/24 Maru Man PA-C [address] [place] [address] Physician Bacteriologist Pharmaceutical Dermatology 10/03/24 Maru Man PA-C [address] [place] [address] Physician Bacteriologist Pharmaceutical Dermatology 10/22/24 Jelena David OD [address] [place] [address] [place] [address] Assigned Surgical Provider 10/31/24 Fabiano Correa NP [address] [place] [address] Assigned Heart and Vascular Provider 11/30/24 documented as of this encounter
--- OUTSIDE RECORDS SUMMARY | 2024-12-31 03:17 | XMS_ITS | Encounter Summary ---
Author Organization [place] Address [address] [place] [address] Care Team Providers Care Sample Box Maker Name Role Phone Diana Desir [facility] Unavailable Rain Galaviz PA-C Unavailable [phone] Tavia Wyatt MD Unavailable [phone] Erica Farrell APRN DECORATIVE ENGRAVER APPRENTICE Unavailable Rich Barrett MD Unavailable [phone] Neil Kent MD Unavailable Diana Desir [facility] Unavailable Livan Sharif MD Unavailable Catherine Cm MD Unavailable + Valery Veronica PA-C Unavailable Brea Quinn CLINICAL TRIAL MANAGER DECORATIVE ENGRAVER APPRENTICE Unavailable [phone] Brea Quinn CLINICAL TRIAL MANAGER DECORATIVE ENGRAVER APPRENTICE Unavailable Jose Francisco Johnson MD Unavailable Alfonso Renteria MD Unavailable [phone] Esha Grimm PA-C Primary Care Provider [phone] Radha Lomeli APRN DECORATIVE ENGRAVER APPRENTICE Unavailable Jelena David OD Unavailable Pao Joseph RN Unavailable Unavailable AlfaJesusEsha M PA-C Unavailable [phone] Valery Veronica PA-C Unavailable [phone] Rey Tay MD Unavailable Rocky Zepeda DO Unavailable Philip Dumont MD Unavailable Meredith Carrera PA-C Unavailable Neil Kent MD Unavailable Juan Pablo Emmanuel MD Unavailable Audrey Waite PA-C Unavailable [phone] Valery Veronica PA-C Unavailable [phone] Herminia Hatch MD Unavailable Jelena David OD Unavailable Juan Pablo Emmanuel MD Unavailable Maru Man PA-C Unavailable Maru Man PA-C Unavailable Jelena David OD Unavailable Fabiano Correa NP Unavailable [phone] Encounter Details Date Type Department Care Team (Late st Contact Info) Description 10/25/2023 [facility] [place] [facility] [address] [place] [address] [place] Social History Tobacco [...] 0 10/25/2023 [facility] - [facility]ational [...] exercise at this level? 30 min 03/10/2023 Brooklyn Depression Scale Answer Date Recorded Brooklyn Depression Score 5 01/14/2021 Last EPDS Self [...] Answer Date Recorded Do you have housing? (Cahterine alves is defined as stable permanent housing [...] PM CDT Legal Sex Female 4:13 AM SKI LIFT ATTENDANT Gender Identity Female 03/02/2021 5:45 PM CDT Sexual Orientation Straight 02/28/2020 12 :51 AM CDT documented as of this encounter Plan of Treatment Upcoming Encounters Date Type Department Care Team (Latest Contact Info) Description 01/02/2025 1:10 PM CDT Ancillary Procedure [facility] [address] [place] [phone] Lauren Claudio PA-C [address] [place] [address] 01/17/2025 10:00 AM CDT Appointment M [facility] Respiratory [address] [facility] [place] [phone] Lauren Claudio PA-C [address] [place] [address] 04/16/2025 11:00 AM CDT Virtual Visit [facility] [address] 4th [place] [phone] Meredith Carrera PA-C [address] [place] [address] 340365 documented as of this encounter Visit Diagnoses [...] Total Score: 4 06/20/20 23 8:40 AM SKI LIFT ATTENDANT documented as of this encounter Care Teams Sample Box Maker Relationship Specialty Start Date End Date Esha Grimm PA-C [address] [place] [address] PCP - General Family Medicine 05/04/23 Diana Desir [facility] [address] [place] [address] Pharmacist Pharmacist 04/17/21 Rain Galaviz PA-C [address] [place] [address] [address] [place] [address] Physician Revenue Accounting Manager Dermatology 04/28/21 Tavia Wyatt MD [address] [place] [address] [address] [facility] [place] [place] [address] Dermatology 07/14/21 Erica Farrell APRN DECORATIVE ENGRAVER APPRENTICE [address] [place] 324345 Nurse Practitioner Cardiovascular Disease 09/09/21 Rich Barrett MD [address] [place] 0[address]65 Physician Ophthalmology 01/21/22 Neil Kent MD 500 [place] [address] Dermatology 02/24/22 Diana Desir, [facility] 3033 [place] [address] Assigned MTM Pharmacist 04/07/22 Livan Sharif MD [address] [place] [address] Cardiovascular Disease 05/14/22 Catherine Cm MD [address] [place] [address] Cardiovascular Disease 07/21/22 Valery Veronica PA-C 909 [place] [address] Physician Revenue Accounting Manager Dermatology 07/21/22 Brea Quinn APRN DECORATIVE ENGRAVER APPRENTICE 500 [place] [address] Nurse Practitioner Dermatology 09/21/22 Brea Quinn APRN DECORATIVE ENGRAVER APPRENTICE 6401 [facility] [place] [address] Assigned Surgical Provider 10/09/22 05/01/24 [place] [address] [facility] 300 [place] [address] Assigned Musculoskeletal Provider 10/09/22 05/01/24 lAfonso Renteria MD 57[address] [facility] 200 [place], [place] 606016 Assigned Neuroscience Provider 04/02/23 09/29/24 Radha Lomeli APRN DECORATIVE ENGRAVER APPRENTICE 6[address] [facility] [address] [place] [address] Assigned Heart and Vascular Provider 05/28/23 11/29/24 Jelena David OD [address] [place] [address] Ophthalmology 06/15/23 Pao Joseph, VJ Personal Advocate & Liaison (PAL) Nurse 08/01/23 11/07/23 Esha Grimm PA-C [address] [place] [phone] Assigned PCP 07/16/23 Valery Veronica PA-C [address] [place] [address] 399785 Physician Revenue Accounting Manager Dermatology 09/19/23 Rey Tay MD [address] [place] [address] 585475 MD Gastroenterology 09/20/23 Rocky Zepeda DO [address] [place] [address] 695315 Physician Gastroenterology 09/20/23 Philip Dumont MD [address] [place] [address] 455085 Physician Ophthalmology 09/22/23 Meredith Carrera PA-C [address] [place] [address] 818625 Assigned Gastroenterology Provider 11/01/23 Neil Kent MD [address] [place] [address] Dermatology 11/02/23 [place] [address] [place] [address] Neurological Surgery 12/26/23 Audrey Waite PA-C 500 [place] [address] Physician Revenue Accounting Manager Dermatology 02/28/24 Valery Veronica PA-C 109178 [facility] [place] [address] Physician Revenue Accounting Manager Dermatology 04/10/24 Herminia Hatch MD [address] [place] [address] Assigned Rheumatology Provider 07/02/24 Jelena David OD [address] [place] [address] [place] [address] Ophthalmology 08/30/24 [place] [address] [place] [address] Assigned Neuroscience Provider 09/30/24 Maru Man PA-C [address] [place] [address] Physician Revenue Accounting Manager Dermatology 10/03/24 Maru Man PA-C [address] [place] [address] Physician Revenue Accounting Manager Dermatology 10/22/24 Jelena David OD [address] [place] [address] [place] [address] Assigned Surgical Provider 10/31/24 Fabiano Correa NP 6405 [facility] [place] [address] Assigned Heart and Vascular Provider 11/30/24 documented as of this encounter
--- OUTSIDE RECORDS SUMMARY | 2024-12-31 03:17 | XMS_ITS | Encounter Summary ---
Author Organization [place] Address [address] [place] [address] 8[address] Care Team Providers Care Technical Coordinator Name Role Phone Lita Oseguera Unavailable Unavailable Marija Edgar APRN COPY CHIEF Primary Care Provider + Marija Edgar APRN COPY CHIEF Unavailable [phone] Keisha Dotson MD Unavailable Diana Desir [facility] Unavailable Rain Galaviz PA-C Unavailable [phone] Tavia Wyatt MD Unavailable Erica Farrell APRN COPY CHIEF Unavailable Rich Barrett MD Unavailable [phone] Neil Kent MD Unavailable Diana Desir [facility] Unavailable Livan Sharif MD Unavailable Catherine Cm MD Unavailable + Valery Veronica PA-C Unavailable [phone] Brea Quinn INSTITUTIONAL CUSTODIAN COPY CHIEF Unavailable [phone] Brea Quinn INSTITUTIONAL CUSTODIAN COPY CHIEF Unavailable [phone] Jose Francisco Johnson MD Unavailable Catherine Cm MD Unavailable + Sydnie Martinez RN Unavailable Unavailable Alfonso Renteria MD Unavailable [phone] Esha Grimm PA-C Primary Care Provider Cheng Todd PA-C Unavailable Armani Radha Stovall ARLENE COPY CHIEF Unavailable Jelena David OD Unavailable Pao Joseph RN Unavailable Unavailable Esha Grimm PA-C Unavailable [phone] Valery eVronica PA-C Unavailable Rey Tay MD Unavailable Rocky Zepeda DO Unavailable Philip Dumont MD Unavailable [phone] Meredith Carrera PA-C Unavailable [phone] Neil Kent MD Unavailable Juan Pablo Emmanuel MD Unavailable Audrey Waite PA-C Unavailable Valery Veronica PA-C Unavailable Herminia Hatch MD Unavailable Jelena David OD Unavailable [phone] Juan Pablo Emmanuel MD Unavailable [phone] Maru Man PA-C Unavailable [phone] Maru Man PA-C Unavailable [phone] Jelena David OD Unavailable Fabiano Correa NP Unavailable Encounter Details Date Type Department Care Team (Late st Contact Info) Description 01/10/[address] [facility] [address] [place] [address] Lauren Claudio PA-C [address] [place], [place] [id number] Social History Tobacco Use Types Packs/Day Years [...] How often do you attend zoroastrian or mormon serv ices? Never 09/22/2021 Do [...] Answer Date Recorded PHQ-2 Score 1 10/11/2022 [facility] ional [...] in a retirement (including now)? No 09/22/2021 Ellis Depression Scale Answer Date Recorded Ellis Depression Score 5 01/14/2021 Last EPDS Self Harm Result Not on file 01/14 Education Answer Date Recorded What is the highest level of school you have completed or the highest degree you have received? 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 Gender Identity Female 03/02/2021 5:45 PM [...] - 02/03/2023 11:52 AM CDT Incoming call Vb Developer: Rosalva Lanett [facility] referral following up on [facility] med information that is needed to be faxed at [phone] Erica David MA documented in this encounter Plan of Treatment Upcoming Encounters Date Type Department Care Team (Latest Contact Info) Description 01/02/2025 1:10 PM CDT Ancillary Procedure [address] [address] Lauren Claudio PA-C [address] [place] [address] 01/17/2025 10:00 AM CDT Appointment M [facility] Respiratory [address] [facility] [place] [phone] Lauren Claudio PA-C [address] [place] [address] 04/16/2025 11:00 AM CDT Virtual Visit [facility] [address] [place] [phone] Meredith Carrera PA-C [address] [place] [address] documented as of this encounter Visit Diagnoses [...] as of this encounter Care Teams Technical Coordinator Relationship Specialty Start Date End Date Marija Edgar APRN COPY CHIEF PCP - General Nurse Practitioner 04/30/20 04/14/23 Esha Grimm PA-C [address] [place] [address] PCP - General Family Medicine 05/04/23 Lita Oseguera Personal Advocate & Liaison (PAL) 02/28/20 03/27/23 Marija Edgar APRN COPY CHIEF Assigned PCP 06/08/20 04/29/23 Keisha Dotson MD 909 [place], [place] 832945 Assigned Neuroscience Provider 06/04/20 04/01/23 Diana Desir, [facility] 3033 [place], [place] 060736 Pharmacist Pharmacist 04/17/21 Rain Galaviz PA-C [address] [place] [address] [address] [place] [address] Physician Supervisor Education Dermatology 04/28/21 Tavia Wyatt MD [address] [place] [address] [place] [phone] Dermatology 07/14/21 Erica Farrell APRN COPY CHIEF [address] [facility] [address] [place] [address] Nurse Practitioner Cardiovascular Disease 09/09/21 Rich Barrett MD [address] [place], [place] 535935 Physician Ophthalmology 01/21/22 Neil Kent MD 500 [place], [place] 200485 Dermatology 02/24/22 Diana Desir, [facility] 3033 [place], [place] 622826 Assigned MTM Pharmacist 04/07/22 Livan Sharif MD [address] [place] [address] Cardiovascular Disease 05/14/22 Catherine Cm MD 6405 [facility] [address] 317565 Cardiovascular Disease 07/21/22 Valery Veronica, PA-C 909 [place], [place] 804105 Physician Supervisor Education Dermatology 07/21/22 Brea uQinn APRN COPY CHIEF 500 [place], [place] 557405 Nurse Practitioner Dermatology 09/21/22 Brea Quinn APRN COPY CHIEF 6401 [facility] [place] 204292 Assigned Surgical Provider 10/09/22 05/01/24 [place] [address] [facility] [facility] 300 [place] [address] Assigned Musculoskeletal Provider 10/09/22 05/01/24 Catherine Cm MD [address] [facility] [address] [place] [address] Assigned Heart and Vascular Provider 11/13/22 05/27/23 Sydnie Martinez, VJ Personal Advocate & Liaison (PAL) Family Medicine 03/28/23 07/31/23 Alfonso Renteria MD 5775 [facility] [address] [place] [address] Assigned Neuroscience Provider 04/02/23 09/29/24 Cheng Todd PA-C [address] [place] [address] [id number] Assigned PCP 04/30/23 07/15/23 Radha Lomeli APRN COPY CHIEF [address] [place] [address] Assigned Heart and Vascular Provider 05/28/23 11/29/24 Jelena David OD 3[address] [facility] [place] [address] Ophthalmology 06/15/23 Pao Joseph, RN Personal Advocate & Liaison (PAL) Nurse 08/01/23 11/07/23 Esha Grimm PA-C [address] [place] [phone] Assigned PCP 07/16/23 Valery Veronica PA-C 9 [place], [place] 468325 Physician Supervisor Education Dermatology 09/19/23 Rey Tay MD [address] [place] [address] 039645 MD Gastroenterology 09/20/23 Rocky Zepeda DO [address] [place] [address] 570965 Physician Gastroenterology 09/20/23 Philip Dumont MD [address] [place] [address] 858895 Physician Ophthalmology 09/22/23 Meredith Carrera PA-C [address] [place] [address] 849745 Assigned Gastroenterology Provider 11/01/23 Neil Kent MD [address] 115920 Dermatology 11/02/23 [place] [address] [facility] [place] [address] Neurological Surgery 12/26/23 Audrey Waite PA-C [address] [place] [address] Physician Supervisor Education Dermatology 02/28/24 Valery Veronica PA-C [address] [place] [address] Physician Supervisor Education Dermatology 04/10/24 Herminia Hatch MD 1875 [place] [address] Assigned Rheumatology Provider 07/02/24 Jelena David OD [address] [place] [address] [place] [address] Ophthalmology 08/30/24 [place] [address] [place] [address] Assigned Neuroscience Provider 09/30/24 Maru Man PA-C [address] [place] [address] Physician Supervisor Education Dermatology 10/03/24 Maru Man PA-C [address] [place] [address] Physician Supervisor Education Dermatology 10/22/24 [place] [address] [place] [address] [place] [address] Assigned Surgical Provider 10/31/24 Fabiano Correa NP 6405 [place] [address] Assigned Heart and Vascular Provider 11/30/24 documented as of this encounter
--- OUTSIDE RECORDS SUMMARY | 2024-12-31 03:17 | XMS_ITS | Encounter Summary ---
Author Organization [facility] Address [address] [place] [address] Care Team Providers Care Radiologic Technologist Name Role Phone Diana Desir [facility] Unavailable [phone] Rain Galaviz PA-C Unavailable Tavia Wyatt MD Unavailable [phone] Erica Farrell APRN COSMETIC MANAGER Unavailable Rich Barrett MD Unavailable [phone] Neil Kent MD Unavailable Diana Desir [facility] Unavailable Livan Sharif MD Unavailable Catherine Cm MD Unavailable + Valery Veronica PA-C Unavailable Brea Quinn LOOM REPAIRER COSMETIC MANAGER Unavailable Brea Quinn LOOM REPAIRER COSMETIC MANAGER Unavailable Jose Francisco Johnson MD Unavailable Alfonso Renteria MD Unavailable [phone] Esha Grimm PA-C Primary Care Provider Radha Lomeli APRN COSMETIC MANAGER Unavailable Jelena David OD Unavailable [phone] Esha Grimm PA-C Unavailable [phone] Valery Veronica PA-C Unavailable Rey Tay MD Unavailable Rocky Zepeda DO Unavailable Philip Dumont MD Unavailable Meredith Carrera PA-C Unavailable Neil Kent MD Unavailable Juan Pablo Emmanuel MD Unavailable Audrey Waite PA-C Unavailable [phone] JeremíasValery damon PA-C Unavailable Herminia Hatch MD Unavailable Jelena David OD Unavailable [phone] Jaun Pablo Emmanuel MD Unavailable Maru Man PA-C Unavailable Maru Man PA-C Unavailable Jelena David OD Unavailable Fabiano Correa NP Unavailable Encounter Details Date Type Department Care Team (Late st Contact Info) Description 11/21/2023 [facility] [place] [facility] [address] [place] [address] Sofia Alcantar Social History Tobacco [...] PHQ-2 Score 0 10/25/2023 [facility] [...] Description 01/02/2025 1:10 PM CDT Ancillary Procedure [facility] [address] [place] [phone] Lauren Claudio PA-C [address] [place] [address] 01/17/2025 10:00 AM CDT Appointment [facility] Respiratory [address] [place] [phone] Lauren Claudio PA-C [address] [place] [address] 04/16/2025 11:00 AM CDT Virtual Visit [facility] [address] 4th [place] [phone] Meredith Carrera PA-C 909 [place], [place] 717585 documented as of this encounter Visit Diagnoses [...] Total Score: 4 06/20/20 23 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 documented as of this encounter Care Teams Radiologic Technologist Relationship Specialty Start Date End Date Esha Grimm PA-C [address] [place] [address] PCP - General Family Medicine 05/04/23 Diana Desir, [facility] 3033 [place] [address] Pharmacist Pharmacist 04/17/21 Rain Galaviz PA-C [address] [place] [address] DR [address] Lara [place] [address] Physician Prize Jacker Dermatology 04/28/21 Tavia Wyatt MD [address] [place] [address] DR [address] [place]ara [place] [address] Dermatology 07/14/21 Erica Farrell APRN COSMETIC MANAGER [address] [place] [address] Nurse Practitioner Cardiovascular Disease 09/09/21 Rich Barrett MD [address] [place] [address] Physician Ophthalmology 01/21/22 Neil Kent MD 500 [place], [place] 745765 Dermatology 02/24/22 [facility] 3033 [place] [address] Assigned MTM Pharmacist 04/07/22 Livan Sharif MD [address] [place] [address] Cardiovascular Disease 05/14/22 Catherine Cm MD [address] [place] [address] Cardiovascular Disease 07/21/22 Valery Veronica PA-C 909 [place] [address] Physician Prize Jacker Dermatology 07/21/22 Brea Quinn APRN COSMETIC MANAGER 500 [place] [address] Nurse Practitioner Dermatology 09/21/22 Brea Quinn APRN COSMETIC MANAGER 6401 [place] [address] Assigned Surgical Provider 10/09/22 05/01/24 [place] [address] [facility] [facility] 300 [place] [address] Assigned Musculoskeletal Provider 10/09/22 05/01/24 Alfonso Renteria MD 5775 [facility] 200 [place] [address] Assigned Neuroscience Provider 04/02/23 09/29/24 Radha Lomeli APRN COSMETIC MANAGER 6405 [facility] [address] [place] [address] Assigned Heart and Vascular Provider 05/28/23 11/29/24 Jelena David OD [address] [facility] [place] [address] Ophthalmology 06/15/23 Esha Grimm PA-C [address] [place] [address] Assigned PCP 07/16/23 Valery Veronica PA-C [address] [place] [address] Physician Prize Jacker Dermatology 09/19/23 Rey Tay MD [address] [place] [address] MD Gastroenterology 09/20/23 Rocky Zepeda DO [address] [place] [address] Physician Gastroenterology 09/20/23 Philip Dumont MD [address] [place] [address] Physician Ophthalmology 09/22/23 Meredith Carrera PA-C [address] [place] [address] Assigned Gastroenterology Provider 11/01/23 Neil Kent MD [address] 426490 Dermatology 11/02/23 [place] [address] [place] [address] Neurological Surgery 12/26/23 Audrey Waite PA-C [address] [place] [address] Physician Prize Jacker Dermatology 02/28/24 Valery Veronica PA-C [address] [address] Physician Prize Jacker Dermatology 04/10/24 Herminia Hatch MD [facility]5 [place] [address] Assigned Rheumatology Provider 07/02/24 Jelena David, OD [address] [facility] [place] [address] Ophthalmology 08/30/24 [place] [address] [place] [address] Assigned Neuroscience Provider 09/30/24 Maru Man PA-C [address] [place] [address] 345300 Physician Prize Jacker Dermatology 10/03/24 Maru Man PA-C [address] [place] [address] Physician Prize Jacker Dermatology 10/22/24 eJlena David, SONJA [facility] [facility] [place] [address] Assigned Surgical Provider 10/31/24 Fabiano [place], SLAG SKIMMER [address] [place] [address] Assigned Heart and Vascular Provider 11/30/24 documented as of this encounter
--- OUTSIDE RECORDS SUMMARY | 2024-12-31 03:17 | XMS_ITS | Encounter Summary ---
Author Organization [place] Address [address] [place] [address] Care Team Providers Care Signal Maintainer Name Role Phone Diana Desir [facility] Unavailable [phone] Rain Galaviz PA-C Unavailable Tavia Wyatt MD Unavailable [phone] Erica Farrell APRN PLANER SETTER Unavailable Rich Barrett MD Unavailable [phone] Neil Kent MD Unavailable Diana Desir [facility] Unavailable [phone] Livan Sharif MD Unavailable Catherine Cm MD Unavailable + Valery Veronica PA-C Unavailable [phone] Brea Quinn POWER BENDER OPERATOR PLANER SETTER Unavailable Brea Quinn POWER BENDER OPERATOR PLANER SETTER Unavailable Jose Francisco Johnson MD Unavailable Alfonso Renteria MD Unavailable [phone] Esha Grimm PA-C Primary Care Provider Radha Lomeli APRN PLANER SETTER Unavailable Jelena David OD Unavailable [phone] Esha Grimm PA-C Unavailable [phone] Valery Veronica PA-C Unavailable Rey Tay [...] Contact Info) Description 02/01/2024 MyC Medical Advice [facility] Neurology [address], [address] [place] [address] Macy Pinedo, RN Social History [...] Score 0 10/25/2023 [facility] - Occupational Stress [...] exercise at this level? 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 Gender Identity Female 03/02/2021 5:45 PM CDT Sexual Orientation Straight 02/28/2020 12 :51 AM CDT documented as of this encounter Plan of Treatment Upcoming Encounters Date Type Department Care Team (Latest Contact Info) Description 01/02/2025 1:10 PM CDT Ancillary Procedure [facility] [id number] [place] [phone] Lauren Claudio PA-C [id number] [place] [address] 01/17/2025 10:00 AM CDT Appointment [facility] Respiratory [address] [place] [phone] Lauren Claudio PA-C [address] [place], [place] [phone] 04/16/2025 11:00 AM CDT Virtual Visit [facility] Gastroenterology Clinic [address] 4th [place] [phone] Meredith Carrera PA-C 909 [place], [place] 547145 documented as of this encounter Visit Diagnoses [...] Score: 4 06/20/20 23 8:40 AM [facility] TRAFF[facility] CONTR[facility] documented as of this encounter Care Teams Signal Maintainer Relationship Specialty Start Date End Date Esha Grimm PA-C [address] [place] [phone] PCP - General Family Medicine 05/04/23 Diana Desir, [facility] 3033 [place], [place] 073506 Pharmacist Pharmacist 04/17/21 Rain Galaviz PA-C [address] [place] [address] [address] [place] [address] Physician Cardiology Clinical Nurse Specialist Dermatology 04/28/21 Tavia Wyatt MD [address] [place] [address] DR RAZO Lara [place] [address] Dermatology 07/14/21 Erica Farrell APRN PLANER SETTER [address] [place] 988985 Nurse Practitioner Cardiovascular Disease 09/09/21 Rich Barrett MD [address] [place] 992835 Physician Ophthalmology 01/21/22 Neil Kent MD 500 [place], [place] 242335 Dermatology 02/24/22 Diana Desir, [facility] [address] [place] [address] Assigned MTM Pharmacist 04/07/22 Livan Sharif MD [address] [place] 394185 Cardiovascular Disease 05/14/22 Catherine Cm MD [address] [place] 533655 Cardiovascular Disease 07/21/22 Valery Veronica PA-C 909 [place] [address] Physician Cardiology Clinical Nurse Specialist Dermatology 07/21/22 Brea Quinn APRN PLANER SETTER 500 [place], [place] 453835 Nurse Practitioner Dermatology 09/21/22 Brea Quinn APRN PLANER SETTER 6401 [facility] [place] 703152 Assigned Surgical Provider 10/09/22 05/01/24 [place] [address] [address] [facility] 300 [place] [address] Assigned Musculoskeletal Provider 10/09/22 05/01/24 Alfonso Renteria MD 5775 [facility] 200 [place], [place] 976696 Assigned Neuroscience Provider 04/02/23 09/29/24 Radha Lomeli APRN PLANER SETTER [address] [facility] [address] [place] 946135 Assigned Heart and Vascular Provider 05/28/23 11/29/24 Jelena David OD [address] [facility] [address] [place] [id number] Ophthalmology 06/15/23 Esha Grimm PA-C [address] [place] [phone] Assigned PCP 07/16/23 Valery Veronica PA-C 9 [place], [place] 530835 Physician Cardiology Clinical Nurse Specialist Dermatology 09/19/23 Rey Tay MD [address] [place] [address] MD Gastroenterology 09/20/23 Rocky Zepeda DO [address] [place] [address] 905875 Physician Gastroenterology 09/20/23 Philip Dumont MD [address] [place] [address] 434295 Physician Ophthalmology 09/22/23 Meredith Carrera PA-C [address] [place] [address] 678495 Assigned Gastroenterology Provider 11/01/23 Neil Kent MD [address] [place] [address] Dermatology 11/02/23 [place] [address] [place] [address] Neurological Surgery 12/26/23 Audrey Waite PA-C [address] [place] [address] 38[address] Physician Cardiology Clinical Nurse Specialist Dermatology 02/28/24 Valery Veronica PA-C [address] [place] [address] Physician Cardiology Clinical Nurse Specialist Dermatology 04/10/24 Herminia Hatch MD [address] [place] [address] Assigned Rheumatology Provider 07/02/24 Jelena David OD [address] [place] [address] [place] [address] Ophthalmology 08/30/24 [place] [address] [place] [address] Assigned Neuroscience Provider 09/30/24 Maru Man PA-C [address] [place] [address] Physician Cardiology Clinical Nurse Specialist Dermatology 10/03/24 Maru Man PA-C [address] [place] [address] Physician Cardiology Clinical Nurse Specialist Dermatology 10/22/24 Jelena David OD [address] [place] [address] [place] [address] Assigned Surgical Provider 10/31/24 Fabiano Correa NP [address] [place] [address] Assigned Heart and Vascular Provider 11/30/24 documented as of this encounter
--- OUTSIDE RECORDS SUMMARY | 2024-12-31 03:17 | XMS_ITS | Encounter Summary ---
Author Organization [place] Address [address] [place] [address] Care Team Providers Care Linker Up Name Role Phone Lita Oseguera Unavailable Unavailable Marija Edgar APRN COMBER FIXER Primary Care Provider + Marija Edgar APRN COMBER FIXER Unavailable [phone] Keisha Dotson MD Unavailable Diana Desir [facility] Unavailable [phone] Rain Galaviz PA-C Unavailable Tavia Wyatt MD Unavailable Erica Farrell APRN COMBER FIXER Unavailable Rich Barrett MD Unavailable [phone] Neil Kent MD Unavailable Diana Desir [facility] Unavailable Livan Sharif MD Unavailable Catherine Cm MD Unavailable + Valery Veronica PA-C Unavailable Brea Quinn GENERAL CAR SUPERVISOR YARD COMBER FIXER Unavailable Brea Quinn GENERAL CAR SUPERVISOR YARD COMBER FIXER Unavailable [phone] Jose Francisco Johnson MD Unavailable Catherine Cm MD Unavailable + Sydnie Martinez RN Unavailable Unavailable Alfonso Renteria MD Unavailable [phone] Esha Grimm PA-C Primary Care Provider Cheng Todd PA-C Unavailable Armani Radha Stovall ARLENE COMBER FIXER Unavailable Jelena David OD Unavailable Pao Joseph RN Unavailable Unavailable Esha Grimm PA-C Unavailable [phone] Valery Veronica PA-C Unavailable Rey Tay MD Unavailable Rocky Zepeda DO Unavailable Philip Dumont MD Unavailable [phone] Meredith Carrera PA-C Unavailable [phone] Neil Kent MD Unavailable Juan Pablo Emmanuel MD Unavailable Audrey Waite PA-C Unavailable Valery Veronica PA-C Unavailable Herminia Hatch MD Unavailable Jelena David OD Unavailable [phone] Juan Pablo Emmanuel MD Unavailable [phone] Maru Man PA-C Unavailable [phone] Maru Man PA-C Unavailable [phone] Jelena David OD Unavailable Fabiano Correa NP Unavailable Encounter Details Date Type Department Care Team (Late st Contact Info) Description 01/28/2023 MyC Medical Advice [facility] Heart [place] [id number] [facility] [address] [place] [...] How often do you attend amish or buddhism serv ices? Never 09/22/2021 Do [...] Score 1 10/11/2022 [facility] - [...] in a alf (including now)? No 09/22/2021 [place] Depression Scale Answer Date Recorded [place] Depression Score 5 01/14/2021 Last EPDS Self Harm Result Not on file 01/14 Education Answer Date Recorded What is the highest level of school you have completed or the highest degree you have received? 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 Gender Identity Female 03/02/2021 5:45 PM CDT [...] Description 01/02/2025 1:10 PM CDT Ancillary Procedure [address] [phone] Lauren Claudio PA-C [address] [place] [address] 01/17/2025 10:00 AM CDT Appointment [facility] Respiratory [facility]5 [place] [phone] Lauren Claudio PA-C [address] [place] [address] 04/16/2025 11:00 AM CDT Virtual Visit [facility] Gastroenterology Clinic [address] 4th [place] [phone] Meredith Carrera PA-C [address] [place] [address] 236665 documented as of this encounter Visit Diagnoses [...] documented as of this encounter Care Teams Linker Up Relationship Specialty Start Date End Date Marija Edgar APRN COMBER FIXER PCP - General Nurse Practitioner 04/30/20 04/14/23 Esha Grimm PAUcheC [address] [place] [address] PCP - General Family Medicine 05/04/23 Lita Oseguera Personal Advocate & Liaison (PAL) 02/28/20 03/27/23 Marija Edgar APRN COMBER FIXER Assigned PCP 06/08/20 04/29/23 Keisha Dotson MD 909 [place] [address] Assigned Neuroscience Provider 06/04/20 04/01/23 Diana Desir [facility] 3033 [place] [address] Pharmacist Pharmacist 04/17/21 Rain Galaviz PA-C [address] [place] [address] [address] [place] [address] [facility] Dermatology 04/28/21 Tavia Wyatt MD [address] [place] [address] DR RAZO Lara [place] [address] Dermatology 07/14/21 Erica Farrell APRN COMBER FIXER [address] [place] [address] Nurse Practitioner Cardiovascular Disease 09/09/21 Rich Barrett MD [address] [place] [address] Physician Ophthalmology 01/21/22 Neil Kent MD [address] [place] [address] Dermatology 02/24/22 [facility] [address] [place] [address] Assigned MTM Pharmacist 04/07/22 Livan Sharif MD [address] [place] [address] Cardiovascular Disease 05/14/22 Catherine Cm MD [address] [address] [place] [address] Cardiovascular Disease 07/21/22 Valery Veronica PA-C 909 [place] [address] [facility] [place] [facility] Dermatology 07/21/22 Brea Quinn APRN COMBER FIXER 500 [place] [address] Nurse Practitioner Dermatology 09/21/22 Brea Quinn APRN COMBER FIXER [address] [place] [address] Assigned Surgical Provider 10/09/22 05/01/24 [place] [address] [facility] 300 [place] [address] Assigned Musculoskeletal Provider 10/09/22 05/01/24 Catherine Cm MD [address] [place] 7412000 [place] [address] Assigned Heart and Vascular Provider 11/13/22 05/27/23 Sydnie Martinez RN Personal Advocate & Liaison (PAL) Family Medicine 03/28/23 07/31/23 Alfonso Renteria MD 5775 [facility] 200 [place], [place] 635946 Assigned Neuroscience Provider 04/02/23 09/29/24 Cheng Todd PA-C [address] [place] [address] [id number] Assigned PCP 04/30/23 07/15/23 Radha Lomeli APRN COMBER FIXER [address] [facility] [place] [address] [place], [place] 940215 Assigned Heart and Vascular Provider 05/28/23 11/29/24 Jelena David OD 3305 [facility] [place] [address] MD Ophthalmology 06/15/23 Pao Joseph, VJ Personal Advocate & Liaison (PAL) Nurse 08/01/23 11/07/23 Esha Grimm PA-C [address] [place] [phone] Assigned PCP 07/16/23 Valery Veronica PA-C [address] [place] [address] 433425 [facility] Dermat[facility] 09/19/23 Rey Tay MD [address] [place] [address] 466255 MD Gastroenterology 09/20/23 Rocky Zepeda DO [address] [place] [address] 988965 Physician Gastroenterology 09/20/23 Philip Dumont MD [address] [place] [address] 751935 Physician Ophthalmology 09/22/23 Meredith Carrera PA-C [address] [place] [address] Assigned Gastroenterology Provider 11/01/23 Neil Kent MD [address] [place] [address] Dermatology 11/02/23 [place] [address] 300 [place] [address] Neurological Surgery 12/26/23 Audrey Waite PA-C [address] [place] [address] [facility] D[facility] 02/28/24 Valery Veronica PA-C [id number] [place] [address] [facility] Dermatology 04/10/24 Herminia Hatch MD [facility]5 [place], [place] 86623125 Assigned Rheumatology Provider 07/02/24 Jelena David OD [address] [facility] [place] [address] Ophthalmology 08/30/24 [place] [address] [place] [address] Assigned Neuroscience Provider 09/30/24 Maru Man PA-C [address] [place] [address] [facility] D[facility] 10/03/24 Maru Man PA-C [address] [place] [address] [facility] [place] [facility] Dermatology 10/22/24 Jelena David OD 3305 [facility] [place] [address] Assigned Surgical Provider 10/31/24 Fabiano Correa NP [address] [place] [address] Assigned Heart and Vascular Provider 11/30/24 documented as of this encounter
--- OUTSIDE RECORDS SUMMARY | 2024-12-31 03:17 | XMS_ITS | Encounter Summary ---
Author Organization [place] Address [address] [place] [address] Care Team Providers Care Sas Architect Name Role Phone Diana Desir [facility] Unavailable Rain Galaviz PA-C Unavailable [phone] Tavia Wyatt MD Unavailable [phone] Erica Farrell APRN INTEGRATED PEST MANAGEMENT TECHNICIAN Unavailable Rich Barrett MD Unavailable [phone] Neil Kent MD Unavailable Diana Desir [facility] Unavailable [phone] Livan Sharif MD Unavailable Catherine Cm MD Unavailable + Valery Veronica PA-C Unavailable Brea Quinn SWIFT TENDER INTEGRATED PEST MANAGEMENT TECHNICIAN Unavailable Brea Quinn SWIFT TENDER INTEGRATED PEST MANAGEMENT TECHNICIAN Unavailable Jose Francisco Johnson MD Unavailable Alfonso Renteria MD Unavailable [phone] Esha Grimm PA-C Primary Care Provider Radha Lomeli APRN INTEGRATED PEST MANAGEMENT TECHNICIAN Unavailable Jelena David OD Unavailable [phone] Esha Grimm PA-C Unavailable [phone] Valery Veronica PA-C Unavailable Rey Tay MD Unavailable Rocky Zepeda DO Unavailable Philip Dumont MD Unavailable Meredith Carrera PA-C Unavailable [phone] Neil Kent MD Unavailable Juan Pablo [...] Contact Info) Description 11/15/2023 MyC Medical Advice [facility] [address] [address] Vivian Grant Social History Tobacco Use Types [...] Score 0 10/25/2023 [facility] - Occupational Stress Questionnaire [...] exercise at this level? 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 Gender Identity Female 03/02/2021 5:45 PM CDT Sexual Orientation Straight 02/28/2020 12 :51 AM CDT documented as of this encounter Plan of Treatment Upcoming Encounters Date Type Department Care Team (Latest Contact Info) Description 01/02/2025 1:10 PM CDT Ancillary Procedure [facility] [address] [place] [phone] Lauren Claudio PA-C [address] [place] [address] 01/17/2025 10:00 AM CDT Appointment [facility] Respiratory [address] [place] [phone] Lauren Claudio PA-C [address] [place] [address] 04/16/2025 11:00 AM CDT Virtual Visit [facility] [address] 4th [place] [phone] Meredith Carrera PA-C 9 [place] [address] documented as of this encounter Visit [...] Score: 4 06/20/20 23 8:40 AM DATA COMMUNICATIONS SOFTWARE CONSULTANT documented as of this encounter Care Teams Sas Architect Relationship Specialty Start Date End Date Esha Grimm PA-C [address] [place] [address] PCP - General Family Medicine 05/04/23 Diana Desir, [facility] 3033 [place] [address] Pharmacist Pharmacist 04/17/21 Rain Galaviz PA-C [address] [place] [address] DR RAZO Lara [place] [address] Physician Business Attorney Dermatology 04/28/21 Tavia Wyatt MD [address] [place] [address] DR RAZO Lara [facility] [address] Dermatology 07/14/21 Eirca Farrell APRN INTEGRATED PEST MANAGEMENT TECHNICIAN [address] [place] 245475 Nurse Practitioner Cardiovascular Disease 09/09/21 Rich Barrett MD [address] [place] 981105 Physician Ophthalmology 01/21/22 Neil Kent MD 500 [place] [address] Dermatology 02/24/22 [facility] 3033 [place] [address] Assigned MTM Pharmacist 04/07/22 Livan Sharif MD [address] [place] [address] Cardiovascular Disease 05/14/22 Catherine Cm MD [address] [place] [address] Cardiovascular Disease 07/21/22 Valery Veronica PA-C 909 [place] [address] Physician Business Attorney Dermatology 07/21/22 Brea Quinn APRN INTEGRATED PEST MANAGEMENT TECHNICIAN [address] [place] [address] Nurse Practitioner Dermatology 09/21/22 Brea Quinn APRN INTEGRATED PEST MANAGEMENT TECHNICIAN [address] [place] [address] Assigned Surgical Provider 10/09/22 05/01/24 [place] [address] [address] Assigned Musculoskeletal Provider 10/09/22 05/01/24 Alfonso Renteria MD 5775 [facility] 200 [place] [address] Assigned Neuroscience Provider 04/02/23 09/29/24 Radha Lomeli APRN INTEGRATED PEST MANAGEMENT TECHNICIAN 6405 [facility] [address] [place] [address] Assigned Heart and Vascular Provider 05/28/23 11/29/24 Jelena David OD [address] [place] [address] Ophthalmology 06/15/23 Esha Grimm PA-C [address] [place] [address]-338183 Assigned PCP 07/16/23 Valery Veronica PA-C [address] [place] [address] Physician Business Attorney Dermatology 09/19/23 Rey Tay MD [address] [place] [address] MD Gastroenterology 09/20/23 Rocky Zepeda DO [address] [place] [address] 580405 Physician Gastroenterology 09/20/23 Philip Dumont MD [address] [place] [address] Physician Ophthalmology 09/22/23 Meredith Carrera PA-C [address] [place] [address] 043745 Assigned Gastroenterology Provider 11/01/23 Neil Kent MD [address] 888210 Dermatology 11/02/23 [place] [address] [address] [facility] [place] [address] Neurological Surgery 12/26/23 Audrey Waite PA-C [address] [place] [address] 639605 Physician Business Attorney Dermatology 02/28/24 Valery Veronica PA-C [address] [place] [address] Physician Business Attorney Dermatology 04/10/24 Herminia Hatch MD [facility]5 [place] [address] Assigned Rheumatology Provider 07/02/24 Jelena David, SONJA [address] [facility] [place] [address] Ophthalmology 08/30/24 [place] [address] [place] [address] Assigned Neuroscience Provider 09/30/24 Maru Man PA-C [address] [place] [address] 406520 Physician Business Attorney Dermatology 10/03/24 Maru Man PA-C [address] [place] [address] Physician Business Attorney Dermatology 10/22/24 Jelena David OD [address] [place] [address] Assigned Surgical Provider 10/31/24 Fabiano [place], BRYCE [address] [place] [address] Assigned Heart and Vascular Provider 11/30/24 documented as of this encounter
--- OUTSIDE RECORDS SUMMARY | 2024-12-31 03:17 | XMS_ITS ---
Author Organization [place] Address [address] [place] [address] Care Team Providers Care Business Administrator Name Role Phone Diana Desir Stanislav [facility] Unavailable Rain Galaviz PA-C Unavailable Tavia Wyatt MD Unavailable Erica Farrell APRN STICKER MACHINE OPERATOR Unavailable Rich Barrett MD Unavailable [phone] Neil Kent MD Unavailable Diana Desir [facility] Unavailable [phone] Livan Sharif MD Unavailable Catherine Cm MD Unavailable + Valery VeronicaC Unavailable Brea Quinn APRN STICKER MACHINE OPERATOR Unavailable Esha Grimm PA-C Primary Care Provider [phone] Jelena David OD Unavailable Esha Grimm PA-C Unavailable [phone] Valery Veronica PA-C Unavailable Rey Tay MD Unavailable [facility] Unavailable Philip Dumont MD Unavailable [phone] Meredith Carrera PA-C Unavailable [phone] Neli Kent MD Unavailable Juan Pablo Emmanuel MD Unavailable [phone] Audrey Waite PA-C Unavailable [phone] Valery Veronica PA-C Unavailable [phone] Herminia Hatch MD Unavailable Jelena David OD Unavailable [phone] Juan Pablo Emmanuel MD Unavailable [phone] Maru ManC Unavailable [phone] Maru ManC Unavailable [phone] Jelena David OD Unavailable Fabiano Correa NP Unavailable Transitional Care Management Status:Closed (Closed) Start date:11/23/2024 Enrollment date:11/23/2024 End date:12/07/2024 Close reason:Goals met Continued Care and Services Coordination
--- OUTSIDE RECORDS SUMMARY | 2024-12-31 03:17 | XMS_ITS | Encounter Summary ---
Author Organization [place] Address [address] [place] [address] Care Team Providers Care Gas Burner Operator Name Role Phone Lita Oseguera Unavailable Unavailable Marija Edagr APRN PRODUCE WEIGHER Primary Care Provider + Marija Edgar APRN PRODUCE WEIGHER Unavailable [phone] Keisha Dotson MD Unavailable [phone] Diana Desir [facility] Unavailable Rain Galaviz PA-C Unavailable Tavia Wyatt MD Unavailable Erica Farrell APRN PRODUCE WEIGHER Unavailable Rich Barrett MD Unavailable [phone] Neil Kent MD Unavailable Diana Desir [facility] Unavailable [phone] Livan Sharif MD Unavailable Catherine Cm MD Unavailable + Valery Veronica PA-C Unavailable Brea Quinn CONTACT LENS INSPECTOR PRODUCE WEIGHER Unavailable Brea Quinn CONTACT LENS INSPECTOR PRODUCE WEIGHER Unavailable Jose Francisco Johnson MD Unavailable Catherine Cm MD Unavailable + Sydnie Martinez RN Unavailable Unavailable Alfonso Renteria MD Unavailable [phone] Esha Grimm PA-C Primary Care Provider Cheng Todd PA-C Unavailable Armani Radha Stovall ARLENE PRODUCE WEIGHER Unavailable Jelena David OD Unavailable Pao Joseph RN Unavailable Unavailable Esha Grimm PA-C Unavailable [phone] Valery Veronica PA-C Unavailable Rey Tay MD Unavailable Rocky Zepeda DO Unavailable Philip Dumont MD Unavailable [phone] Meredith Carrera PA-C Unavailable [phone] Neil Kent MD Unavailable Juan Pablo Emmanuel MD Unavailable Audrey Waite PA-C Unavailable Valery Veronica PA-C Unavailable Herminia Hatch MD Unavailable Jelena David OD Unavailable [phone] Juan Pablo Emmanuel MD Unavailable [phone] Maru Man PA-C Unavailable [phone] Maru Man PA-C Unavailable [phone] Jelena David OD Unavailable Fabiano Correa NP Unavailable Encounter Details Date Type Department Care Team (Late st Contact Info) Description 12/23/2022 MyC Medical Advice [facility] [address] [place] [address] Lauren Claudio PA-C [address] [place], [place] [phone] Social History Tobacco Use Types Packs/Day Years [...] How often do you attend baptism or congregation serv ices? Never 09/22/2021 Do [...] Answer Date Recorded PHQ-2 Score 1 10/11/2022 [facility] - [...] in a retirement (including now)? No 09/22/2021 [place]airn Depression Scale Answer Date Recorded [place] Depression Score 5 01/14/2021 Last EPDS Self Harm Result Not on file 01/14 Education Answer Date Recorded What is the highest level of school you have completed or the highest degree you have received? 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 G[facility]ology Clinic [address] 4th [place] [phone] Meredith Carrera PA-C [address] [place] [address] documented as of this encounter Visit Diagnoses [...] as of this encounter Care Teams Gas Burner Operator Relationship Specialty Start Date End Date Marija Edgar APRN PRODUCE WEIGHER PCP - General Nurse Practitioner 04/30/20 04/14/23 Esha Grimm PA-C [address] [place] [phone] PCP - General Family Medicine 05/04/23 Lita Oseguera Personal Advocate & Liaison (PAL) 02/28/20 03/27/23 Marija Edgar APRN PRODUCE WEIGHER Assigned PCP 06/08/20 04/29/23 Keisha Dotson MD 909 [place] [address] Assigned Neuroscience Provider 06/04/20 04/01/23 Diana Desir, [facility] [address] [place] [address] Pharmacist Pharmacist 04/17/21 Rain Galaviz PA-C [address] [place] [address] [address] [place] [address] Physician Bi Data Modeler Dermatology 04/28/21 Tavia Wyatt MD [address] [place] [address] [address] [place] [address] Dermatology 07/14/21 Erica Farrell APRN PRODUCE WEIGHER [address] [place] 048705 Nurse Practitioner Cardiovascular Disease 09/09/21 Rich Barrett MD [address] [place] 569895 Physician Ophthalmology 01/21/22 Neil Kent MD 500 [place], [place] 705785 Dermatology 02/24/22 Diana Desir, [facility] [address] [place] [address] Assigned MTM Pharmacist 04/07/22 Livan Sharif MD [address] [place] [place] [address] Cardiovascular Disease 05/14/22 Catherine Cm MD [address] [facility] [address] [place] [address] Cardiovascular Disease 07/21/22 Valery Veronica PA-C 909 [place], [place] 339225 Physician Bi Data Modeler Dermatology 07/21/22 Brea Quinn APRN PRODUCE WEIGHER 500 [place], [place] 410075 Nurse Practitioner Dermatology 09/21/22 Brea Quinn APRN PRODUCE WEIGHER 6401 [place] [address] Assigned Surgical Provider 10/09/22 05/01/24 [place] [address] [facility] 300 [place], [place] 039687 Assigned Musculoskeletal Provider 10/09/22 05/01/24 Catherine Cm MD 6[address] [facility] [address] [place] [address] Assigned Heart and Vascular Provider 11/13/22 05/27/23 Sydnie Martinez RN Personal Advocate & Liaison (PAL) Family Medicine 03/28/23 07/31/23 Alfonso Renteria MD 5775 [facility] 200 [place], [place] 370986 Assigned Neuroscience Provider 04/02/23 09/29/24 Cheng Todd PA-C [address] [place] [address] Assigned PCP 04/30/23 07/15/23 Radha Lomeli APRN PRODUCE WEIGHER 6405 [facility] [address] [place] [address] Assigned Heart and Vascular Provider 05/28/23 11/29/24 Jelena David OD [address] [facility] [place] [address] MD Ophthalmology 06/15/23 Pao Jospeh, VJ Personal Advocate & Liaison (PAL) Nurse 08/01/23 11/07/23 Esha Grimm PA-C [address] [place] [phone] Assigned PCP 07/16/23 Valery Veronica PA-C [address] [place] [address] 481925 Physician Bi Data Modeler Dermatology 09/19/23 Rey Tay MD [address] [place] [address] Gastroenterology 09/20/23 Rocky Zepeda DO [address] [place] [address] 868335 Physician Gastroenterology 09/20/23 Philip Dumont MD [address] [place] [address] Physician Ophthalmology 09/22/23 Meredith Carrera PA-C [address] [place] [address] Assigned Gastroenterology Provider 11/01/23 Neil Kent MD [address] [place] [address] Dermatology 11/02/23 [place] [address] [place] [address] Neurological Surgery 12/26/23 Audrey Waite PA-C [address] [place] [address] Physician Bi Data Modeler Dermatology 02/28/24 Valery Veronica PA-C [address] [place] [address] Physician Bi Data Modeler Dermatology 04/10/24 Herminia Hatch MD [facility] [place], [place] 56272125 Assigned Rheumatology Provider 07/02/24 Jelena David OD [address] [place] [address] [place] [address] Ophthalmology 08/30/24 [place] [address] [place] [address] Assigned Neuroscience Provider 09/30/24 Maru Man PA-C [address] [place] [address] Physician Bi Data Modeler Dermatology 10/03/24 Maru Man PA-C [address] [place] [address] Physician Bi Data Modeler Dermatology 10/22/24 Jelena David OD [address] [facility] [place] [address] Assigned Surgical Provider 10/31/24 Fabiano Correa NP [address] [place] [address] Assigned Heart and Vascular Provider 11/30/24 documented as of this encounter
--- OUTSIDE RECORDS SUMMARY | 2024-12-31 03:17 | XMS_ITS | Encounter Summary ---
Author Organization [place] Address [address] [place] [address] Care Team Providers Care Taping Foreman Name Role Phone Diana Desir [facility] Unavailable Rain Galaviz PA-C Unavailable Tavia Wyatt MD Unavailable [phone] Erica Farrell APRN ELECTRICAL DESIGN ENGINEER Unavailable Rich Barrett MD Unavailable [phone] Neil Kent MD Unavailable Diana Desir [facility] Unavailable Livan Sharif MD Unavailable Catherine Cm MD Unavailable + Valery Veronica PA-C Unavailable [phone] Brea Quinn HOME THEATER EXPERT ELECTRICAL DESIGN ENGINEER Unavailable Brea Quinn HOME THEATER EXPERT ELECTRICAL DESIGN ENGINEER Unavailable Jose Francisco Johnson MD Unavailable Alfonso Renteria MD Unavailable [phone] Esha Grimm PA-C Primary Care Provider [phone] Radha Lomeli APRN ELECTRICAL DESIGN ENGINEER Unavailable Jelena David OD Unavailable [phone] Esha Grimm PA-C Unavailable [phone] Valery Veronica PA-C Unavailable Rey Tay MD Unavailable Rocky Zepeda DO Unavailable Philip Dumont MD Unavailable Meredith Carrera PA-C Unavailable [phone] Neil Kent MD Unavailable Juan Pablo [...] Contact Info) Description 03/19/2024 MyC Medical Advice [facility] Gastroenterology Clinic [address] [place] [address] [place] Social History Tobacco [...] 02/07/2024 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 Gender Identity Female 03/02/2021 5:45 PM CDT Sexual Orientation Straight 02/28/2020 12 :51 AM CDT documented as of this encounter Plan of Treatment Upcoming Encounters Date Type Department Care Team (Latest Contact Info) Description 01/02/2025 1:10 PM CDT Ancillary Procedure [facility] [address] [place] [phone] Lauren Claudio PA-C [address] [place] [address] 01/17/2025 10:00 AM CDT Appointment [facility] Respiratory [address] [place] [phone] Lauren Claudio PA-C [address] [place] [address] 04/16/2025 11:00 AM CDT Virtual Visit [facility] Gastroenterology Clinic [address] 4th [place] [phone] Meredith Carrera PA-C [address] [place] [address] 141245 documented as of this encounter Visit Diagnoses [...] documented as of this encounter Care Teams Taping Foreman Relationship Specialty Start Date End Date Esha Grimm PA-C [address] [place] [phone] PCP - General Family Medicine 05/04/23 Diana Desir, [facility] 3033 [place] [address] Pharmacist Pharmacist 04/17/21 Rain Galaviz PA-C [address] [place] [address] DR RAZO Lara [place] [address] Physician Bulwark Carpenter Dermatology 04/28/21 Tavia Wyatt MD [address] [place] [address] DR RA[address] Lara [place] [address] Dermatology 07/14/21 Erica Farrell APRN ELECTRICAL DESIGN ENGINEER [address] [place] 157785 Nurse Practitioner Cardiovascular Disease 09/09/21 Rich Barrett MD [address] [place] 352945 Physician Ophthalmology 01/21/22 Neil Kent MD 500 [place], [place] 882395 Dermatology 02/24/22 Diana Desir, [facility] [address] [place], [place] 411926 Assigned MTM Pharmacist 04/07/22 Livan Sharif MD [address] [address] [place] 586585 Cardiovascular Disease 05/14/22 Catherine Cm MD [address] [place] [address] [place] 605365 Cardiovascular Disease 07/21/22 Valery Veronica PA-C 909 [place], [place] 214945 Physician Bulwark Carpenter Dermatology 07/21/22 Brea Quinn APRN ELECTRICAL DESIGN ENGINEER 500 [place], [place] 348815 Nurse Practitioner Dermatology 09/21/22 Brea Quinn APRN ELECTRICAL DESIGN ENGINEER 6401 [facility] [place] 608842 Assigned Surgical Provider 10/09/22 05/01/24 [place] [address] [address] [facility] 300 [place] [address] Assigned Musculoskeletal Provider 10/09/22 05/01/24 Alfonso Renteria MD 5775 [facility] 200 [place], [place] 804536 Assigned Neuroscience Provider 04/02/23 09/29/24 Radha Lomeli APRN ELECTRICAL DESIGN ENGINEER 6405 [facility] [address] [place] [address] Assigned Heart and Vascular Provider 05/28/23 11/29/24 Jelena David OD 3305 [facility] [place] [phone] Ophthalmology 06/15/23 Esha Grimm PA-C [address] [place] [phone] Assigned PCP 07/16/23 Valery Veronica PA-C 9 [place], [place] 742075 Physician Bulwark Carpenter Dermatology 09/19/23 Rey Tay MD [address] [place] [address] 817485 MD Gastroenterology 09/20/23 Rocky Zepeda DO [address] [place] [address] 373035 Physician Gastroenterology 09/20/23 Philip Dumont MD [address] [place] [address] 701105 Physician Ophthalmology 09/22/23 Meredith Carrera PA-C [address] [place] [address] 469705 Assigned Gastroenterology Provider 11/01/23 Neil Kent MD [address] 370960 Dermatology 11/02/23 [place] [address] [address] [facility] [place] [address] Neurological Surgery 12/26/23 Audrey Waite PA-C [address] [place] [address] Physician Bulwark Carpenter Dermatology 02/28/24 Valery Veronica PA-C [address] [place] [address] Physician Bulwark Carpenter Dermatology 04/10/24 Herminia Hatch MD [facility] [place] [address] Assigned Rheumatology Provider 07/02/24 Jelena David OD [address] [place] [address] [place] [address] Ophthalmology 08/30/24 [place] [address] [place] [address] Assigned Neuroscience Provider 09/30/24 Maru Man PA-C [address] [place] [address] Physician Bulwark Carpenter Dermatology 10/03/24 Maru Man PA-C [address] [place] [address] Physician Bulwark Carpenter Dermatology 10/22/24 Jelena David OD 3305 [facility] [place] [address] Assigned Surgical Provider 10/31/24 Fabiano Correa NP [address] [place] [address] Assigned Heart and Vascular Provider 11/30/24 documented as of this encounter
--- OUTSIDE RECORDS SUMMARY | 2024-12-31 03:17 | XMS_ITS | Encounter Summary ---
Author Organization [place] Address [address] [place] [address] Care Team Providers Care Senior Cytogenetic Technologist Name Role Phone Diana Desir [facility] Unavailable Rain Galaviz PA-C Unavailable Tavia Wyatt MD Unavailable [phone] Erica Farrell APRN MAGAZINE GRINDER LOADER Unavailable Rich Barrett MD Unavailable [phone] Neil [place] MD Unavailable Diana Desir [facility] Unavailable Livan Sharif MD Unavailable Catherine Cm MD Unavailable + Valery Veronica PA-C Unavailable Brea Quinn DIAZO TECHNICIAN MAGAZINE GRINDER LOADER Unavailable Brea Quinn DIAZO TECHNICIAN MAGAZINE GRINDER LOADER Unavailable Jose Francisco Johnson MD Unavailable Alfonso Renteria MD Unavailable [phone] Esha Grimm PA-C Primary Care Provider Radha Lomeli APRN MAGAZINE GRINDER LOADER Unavailable Jelena David OD Unavailable [phone] Esha Grimm PA-C Unavailable [phone] Valery Veronica PA-C Unavailable Rey Tay [...] Contact Info) Description 02/27/2024 MyC Medical Advice [facility] Spine and Neurosurgery [address] [place] [phone] Ebony Cid, ARLENE MAGAZINE GRINDER LOADER 500 [place] [address] Social History Tobacco Use Types Packs/Day Years [...] week 03/10/2023 How often do you attend [facility] or christianity services? 1 to 4 [...] 1 02/07/2024 [facility] [...] exercise at this level? 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 FUR OPERATOR Gender Identity Female 03/02/2021 5:45 PM CDT Sexual Orientation Straight 02/28/2020 12 :51 AM CDT documented as of this encounter Plan of Treatment Upcoming Encounters Date Type Department Care Team (Latest Contact Info) Description 01/02/2025 1:10 PM CDT Ancillary Procedure [facility] [address] [place] [phone] Lauren Claudio PA-C [address] [place] [address] 01/17/2025 10:00 AM CDT Appointment [facility] Respiratory [address] [place] [phone] Lauren Claudio PA-C [address] [place], [place] [phone] 04/16/2025 11:00 AM CDT Virtual Visit [facility] Gastroenterology Clinic [address] 4th [place] [phone] Meredith Carrera PA-C [address] [place] [address] documented as of this encounter Visit Diagnoses [...] as of this encounter Care Teams Senior Cytogenetic Technologist Relationship Specialty Start Date End Date Esha Grimm PA-C [address] [place] [address] PCP - General Family Medicine 05/04/23 Diana Desir [facility] [address] [place] [address] Pharmacist Pharmacist 04/17/21 Rain Galaviz PA-C [address] [place] [address] [address] [place] [address] Physician Account Executive Key Accounts Dermatology 04/28/21 Tavia Wyatt MD [address] [place] [address] [address] [facility] [place] [address] Dermatology 07/14/21 Erica Farrell APRN MAGAZINE GRINDER LOADER [address] [place] 0[address]25 Nurse Practitioner Cardiovascular Disease 09/09/21 Rich Barrett MD [address] [place] 316895 Physician Ophthalmology 01/21/22 Neil Kent MD 500 [place] [address] Dermatology 02/24/22 Diana Desir, [facility] 3033 [place] [address] Assigned MTM Pharmacist 04/07/22 Livan Sharif MD [address] [address] [place] [address] Cardiovascular Disease 05/14/22 Catherine Cm MD [address] [place] [address] [place] [address] Cardiovascular Disease 07/21/22 Valery Veronica PA-C 909 [place] [address] Physician Account Executive Key Accounts Dermatology 07/21/22 Brea Quinn APRN MAGAZINE GRINDER LOADER 500 [place] [address] Nurse Practitioner Dermatology 09/21/22 Brea Quinn APRN MAGAZINE GRINDER LOADER 6401 [facility] [place] [address] Assigned Surgical Provider 10/09/22 05/01/24 [place] [address] [address] [facility] 300 [place] [address] Assigned Musculoskeletal Provider 10/09/22 05/01/24 Alfonso Renteria MD [facility] 200 [place], [place] 468486 Assigned Neuroscience Provider 04/02/23 09/29/24 Radha Lomeli APRN MAGAZINE GRINDER LOADER [facility] [facility] [address] [place] [address] Assigned Heart and Vascular Provider 05/28/23 11/29/24 Jelena David OD [address] [facility] [place] [address] Ophthalmology 06/15/23 Esha Grimm PA-C [address] [place] [phone] Assigned PCP 07/16/23 Valery Veronica PA-C [address] [place] [address] Physician Account Executive Key Accounts Dermatology 09/19/23 Rey Tay MD [address] [place] [address] MD Gastroenterology 09/20/23 Rocky Zepeda DO [address] [place] [address] 453115 Physician Gastroenterology 09/20/23 Philip Dumont MD [address] [place] [address] Physician Ophthalmology 09/22/23 Meredith Carrera PA-C [address] [place] [address] Assigned Gastroenterology Provider 11/01/23 Neil Kent MD [address] [address] Dermatology 11/02/23 [place] [address] [place], [place] 876047 Neurological Surgery 12/26/23 Audrey Waite PA-C [address] [place] [address] 630835 Physician Account Executive Key Accounts Dermatology 02/28/24 Valery Veronica PA-C [address] [facility] [place] [address] Physician Account Executive Key Accounts Dermatology 04/10/24 Herminia Hatch MD [facility]5 [place], [place] 07466125 Assigned Rheumatology Provider 07/02/24 Jelena David, SONJA [address] [place] [address] [place] [address] Ophthalmology 08/30/24 [place] [address] [place] [address] Assigned Neuroscience Provider 09/30/24 Maru Man PA-C [address] [place] [address] Physician Account Executive Key Accounts Dermatology 10/03/24 Maru Man PA-C [address] [place] [address] Physician Account Executive Key Accounts Dermatology 10/22/24 Jelena David, SONJA [address] [place] [address] [place] [address] Assigned Surgical Provider 10/31/24 Fabiano Correa NP [address] [place] [address] Assigned Heart and Vascular Provider 11/30/24 documented as of this encounter
--- OUTSIDE RECORDS SUMMARY | 2024-12-31 03:17 | XMS_ITS | Encounter Summary ---
Author Organization [place] Address [address] [place] [address] Care Team Providers Care Forensics Team Director Name Role Phone Diana Desir [facility] Unavailable Rain Galaviz PA-C Unavailable Tavia Wyatt MD Unavailable [phone] Erica Farrell APRN PROFESSIONAL ENGINEER Unavailable Rich Barrett MD Unavailable [phone] Neil Kent MD Unavailable Diana Desir [facility] Unavailable Livan Sharif MD Unavailable Catherine Cm MD Unavailable + Valery Veronica PA-C Unavailable Brea Quinn BENEFITS TECHNICIAN PROFESSIONAL ENGINEER Unavailable Brea Quinn BENEFITS TECHNICIAN PROFESSIONAL ENGINEER Unavailable [phone] Jose Francisco Johnson MD Unavailable Alfonso Renteria MD Unavailable [phone] Esha Grimm PA-C Primary Care Provider Radha Lomeli APRN PROFESSIONAL ENGINEER Unavailable Jelena David OD Unavailable [phone] Esha Grimm PA-C Unavailable [phone] JeremíasValery damon PA-C Unavailable Rey Tay [...] Contact Info) Description 11/16/2023 [facility] Medical Advice [address] [address] Asiya Reddy, RN Social History [...] Answer Date Recorded PHQ-2 Score 0 10/25/2023 [facility] - Occupational Stress [...] exercise at this level? 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 Gender Identity Female 03/02/2021 5:45 PM CDT Sexual Orientation Straight 02/28/2020 12 :51 AM CDT documented as of this encounter Plan of Treatment Upcoming Encounters Date Type Department Care Team (Latest Contact Info) Description 01/02/2025 1:10 PM CDT Ancillary Procedure [facility] [address] [place] [phone] Lauren Claudio PA-C [address] [place] [address] 01/17/2025 10:00 AM CDT Appointment [facility] [address] [place] [phone] Lauren Claudio PA-C [address] [place] [address] 04/16/2025 11:00 AM CDT Virtual Visit [facility] [address] 4th [place] [phone] Meredith Carrera PA-C 9 [place], [place] 464955 documented as of this encounter Visit Diagnoses [...] Total Score: 4 06/20/20 23 8:40 AM WASH MILL OPERATOR documented as of this encounter Care Teams Forensics Team Director Relationship Specialty Start Date End Date Esha Grimm PA-C [address] [place] [address] PCP - General Family Medicine 05/04/23 Diana Desir, [facility] [address] [place] [address] Pharmacist Pharmacist 04/17/21 Rain Galaviz PA-C [address] [place] [address] [address] [place] [address] Physician Crop Adjuster Dermatology 04/28/21 Tavia Wyatt MD [address] [place] [address] DR RAZO Lara [place] [address] Dermatology 07/14/21 Erica Farrell APRN PROFESSIONAL ENGINEER [address] [place] [address] Nurse Practitioner Cardiovascular Disease 09/09/21 Rich Barrett MD [address] [place] [address] Physician Ophthalmology 01/21/22 Neil Kent MD 500 [place] [address] Dermatology 02/24/22 [facility] [address] [place] [address] Assigned MTM Pharmacist 04/07/22 Livan Sharif MD [address] [place] [address] Cardiovascular Disease 05/14/22 Catherine Cm MD [address] [place] [address] Cardiovascular Disease 07/21/22 Valery Veronica PA-C 909 [place] [address] Physician Crop Adjuster Dermatology 07/21/22 Brea Quinn APRN PROFESSIONAL ENGINEER 500 [place] [address] Nurse Practitioner Dermatology 09/21/22 Brea Quinn APRN PROFESSIONAL ENGINEER 6401 [place] [address] Assigned Surgical Provider 10/09/22 05/01/24 [place] [address] [address] [facility] 300 [place] [address] Assigned Musculoskeletal Provider 10/09/22 05/01/24 Alfonso Renteria MD 5775 [facility] 200 [place] [address] Assigned Neuroscience Provider 04/02/23 09/29/24 Radha Lomeli APRN PROFESSIONAL ENGINEER [address] [facility] [address] [place] [address] Assigned Heart and Vascular Provider 05/28/23 11/29/24 Jelena David OD 3305 [facility] [place] [address] Ophthalmology 06/15/23 Esha Grimm PA-C [address] [place] [address] Assigned PCP 07/16/23 Valery Veronica PA-C [address] [place] [address] Physician Crop Adjuster Dermatology 09/19/23 Rey Tay MD [address] [place] [address] MD Gastroenterology 09/20/23 Rocky Zepeda DO [address] [place] [address] Physician Gastroenterology 09/20/23 Philip Dumont MD [address] [place] [address] Physician Ophthalmology 09/22/23 Meredith Carrera PA-C [address] [place] [address] Assigned Gastroenterology Provider 11/01/23 Neil Kent MD [address] [place] [address] 038220 Dermatology 11/02/23 [place] [address] [facility] [address] Neurological Surgery 12/26/23 Audrey Waite PA-C [address] [place] [address] Physician Crop Adjuster Dermatology 02/28/24 Valery Veronica PA-C [address] [place] [address] Physician Crop Adjuster Dermatology 04/10/24 Herminia Hatch MD 1875 [place] [address] Assigned Rheumatology Provider 07/02/24 Jelena David, SONJA 3305 [facility] [place] [address] Ophthalmology 08/30/24 [place] [address] [place] [address] Assigned Neuroscience Provider 09/30/24 Maru Man PA-C [address] [place] [address] Physician Crop Adjuster Dermatology 10/03/24 Maru Man PA-C [address] [place] [address] Physician Crop Adjuster Dermatology 10/22/24 Jelena David, SONJA [facility] [facility] [place] [address] Assigned Surgical Provider 10/31/24 Fabiano Correa, LENS AND FRAMES PRESCRIPTION CLERK [address] [place] [address] Assigned Heart and Vascular Provider 11/30/24 documented as of this encounter
--- OUTSIDE RECORDS SUMMARY | 2024-12-31 03:17 | XMS_ITS | Encounter Summary ---
Author Organization [place] Address [address] [place] [address] Care Team Providers Care Supervisor Shed Workers Name Role Phone Diana Desir [facility] Unavailable [phone] Rain Glaaviz PA-C Unavailable Tavia Wyatt MD Unavailable [phone] Erica Farrell APRN FILM CRITIC Unavailable Rich Barrett MD Unavailable [phone] Neil Kent MD Unavailable Diana Desir [facility] Unavailable [phone] Livan Sharif MD Unavailable Catherine Cm MD Unavailable + Valery Veronica PA-C Unavailable Brea Quinn PERIANESTHESIA RN FILM CRITIC Unavailable Brea Quinn PERIANESTHESIA RN FILM CRITIC Unavailable Jose Francisco Johnson MD Unavailable Alfonso Renteria MD Unavailable [phone] Esha Grimm PA-C Primary Care Provider Radha Lomeli APRN FILM CRITIC Unavailable Jelena David OD Unavailable [phone] Esha Grimm PA-C Unavailable [phone] Valery Veronica PA-C Unavailable Rey Tay [...] PA-C Unavailable Jelena David OD Unavailable Fabiano Corera NP Unavailable Encounter Details Date Type Department Care Team (Late st Contact Info) Description 11/21/2023 [facility] Medical Advice [facility] [address] [place] [address] Sofia Alcantar Social History Tobacco [...] 10/25/2023 [facility] - Occupational [...] exercise at this level? 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 Gender Identity Female 03/02/2021 5:45 PM CDT Sexual Orientation Straight 02/28/2020 12 :51 AM CDT documented as of this encounter Plan of Treatment Upcoming Encounters Date Type Department Care Team (Latest Contact Info) Description 01/02/2025 1:10 PM CDT Ancillary Procedure [facility] [address] [place] [phone] Lauren Claudio PA-C [address] [place] [address] 01/17/2025 10:00 AM CDT Appointment [facility] [address] [place] [phone] Lauren Claudio PA-C [address] [place] [address] 04/16/2025 11:00 AM CDT Virtual Visit [facility] Gastro[facility] [address] 4th [place] [phone] Meredith Carrera PA-C 909 [place], [place] 689205 documented as of this encounter Visit Diagnoses [...] Total Score: 4 06/20/20 23 8:40 AM OUTDOOR FITNESS TRAINER documented as of this encounter Care Teams Supervisor Shed Workers Relationship Specialty Start Date End Date Esha Grimm PA-C [address] [place] [address] PCP - General Family Medicine 05/04/23 Diana Desir, [facility] [address] [place] [address] Pharmacist Pharmacist 04/17/21 Rain Galaviz PA-C [address] [place] [address] DR RAZO Lara [place] [address] Physician Program Or Project Administrator Dermatology 04/28/21 Tavia Wyatt MD [address] [place] [address] DR RAZO Lara [place] [address] Dermatology 07/14/21 Erica Farrell APRN FILM CRITIC [address] [place] [address] Nurse Practitioner Cardiovascular Disease 09/09/21 Rich Barrett MD [address] [place] [address] Physician Ophthalmology 01/21/22 Neil Kent MD 500 [place], [place] 972295 Dermatology 02/24/22 [facility] 30[address] [place] [address] Assigned MTM Pharmacist 04/07/22 Livan Sharif MD [address] [place] [address] Cardiovascular Disease 05/14/22 Catherine Cm MD [address] [place] [address] Cardiovascular Disease 07/21/22 Valery Veronica PA-C 909 [place] [address] Physician Program Or Project Administrator Dermatology 07/21/22 Brea Quinn APRN FILM CRITIC 500 [place] [address] Nurse Practitioner Dermatology 09/21/22 Brea Quinn APRN FILM CRITIC 6401 [place] [address] Assigned Surgical Provider 10/09/22 05/01/24 [place] [address] [facility] 300 [place] [address] Assigned Musculoskeletal Provider 10/09/22 05/01/24 Alfonso Renteria MD 5775 [facility] 200 [place] [address] Assigned Neuroscience Provider 04/02/23 09/29/24 Radha Lomeli APRN FILM CRITIC 6405 [facility] [address] [place] [address] Assigned Heart and Vascular Provider 05/28/23 11/29/24 Jelena David OD [address] [facility] [place] [address] Ophthalmology 06/15/23 Esha Grimm PA-C [address] [place] [address]378[address] Assigned PCP 07/16/23 Valery Veronica PA-C [address] [place] [address] Physician Program Or Project Administrator Dermatology 09/19/23 Rey Tay MD [address] [place] [address] MD Gastroenterology 09/20/23 Rocky Zepeda DO [address] [place] [address] Physician Gastroenterology 09/20/23 Philip Dumont MD [address] [place] [address] Physician Ophthalmology 09/22/23 Meredith Carrera PA-C [address] [place] [address] Assigned Gastroenterology Provider 11/01/23 Neil Kent MD [address] 138130 Dermatology 11/02/23 [place] [address] [place] [address] Neurological Surgery 12/26/23 Audrey Waite PA-C [address] [place] [address] Physician Program Or Project Administrator Dermatology 02/28/24 Valery Veronica PA-C [address] [place] [address] Physician Program Or Project Administrator Dermatology 04/10/24 Herminia Hatch MD [facility]5 [place] [address] Assigned Rheumatology Provider 07/02/24 Jelena David, OD 3305 [facility] [place] [address] Ophthalmology 08/30/24 [place] [address] [place] [address] Assigned Neuroscience Provider 09/30/24 Maru Man PA-C [address] [place] [address] 305530 Physician Program Or Project Administrator Dermatology 10/03/24 Maru Man PA-C [address] [place] [address] Physician Program Or Project Administrator Dermatology 10/22/24 Jelena David, SONJA [facility] [facility] [place] [address] Assigned Surgical Provider 10/31/24 Fabiano [place], AOC PLANS INTELLIGENCE OFFICER CHIEF [address] [place] [address] Assigned Heart and Vascular Provider 11/30/24 documented as of this encounter
--- OUTSIDE RECORDS SUMMARY | 2024-12-31 03:17 | XMS_ITS | Encounter Summary ---
Author Organization [place] Address [address] [place] [address] Care Team Providers Care Clinic Supervisor Name Role Phone Diana Desir [facility] Unavailable Rain Galaviz PA-C Unavailable Tavia Wyatt MD Unavailable [phone] Erica Farrell APRN PIG IRON LOADER Unavailable Rich Barrett MD Unavailable [phone] Neil Kent MD Unavailable Diana Desir [facility] Unavailable [phone] Livan Sharif MD Unavailable Catherine Cm MD Unavailable + Valery Veronica PA-C Unavailable Brea Quinn LOCAL SALES MANAGER PIG IRON LOADER Unavailable Brea Quinn LOCAL SALES MANAGER PIG IRON LOADER Unavailable Jose Francisco Johnson MD Unavailable Alfonso Renteria MD Unavailable [phone] Esha Grimm PA-C Primary Care Provider Radha Lomeli APRN PIG IRON LOADER Unavailable Jelena David OD Unavailable [phone] Esha Grimm PA-C Unavailable [phone] Valery Veronica PA-C Unavailable Rey Tay [...] Team (Late st Contact Info) Description 03/05/2024 [facility] Medical Advice [facility]ology Clinic [address] [place] [address] Rebecca Moctezuma Social History Tobacco [...] Score 1 02/07/2024 [facility] - Occupational Stress [...] exercise at this level? 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 Gender Identity Female 03/02/2021 5:45 PM CDT Sexual Orientation Straight 02/28/2020 12 :51 AM CDT documented as of this encounter Plan of Treatment Upcoming Encounters Date Type Department Care Team (Latest Contact Info) Description 01/02/2025 1:10 PM CDT Ancillary Procedure [facility] [address] [place] [phone] Lauren Claudio PA-C [address] [place] [address] 01/17/2025 10:00 AM CDT Appointment [facility] Respiratory [address] [place] [phone] Lauren Claudio PA-C [address] [place] [address] 04/16/2025 11:00 AM CDT Virtual Visit [facility] [address] 4th [place] [phone] Meredith Carrera PA-C [address] [place] [address] 318045 documented as of this encounter Visit Diagnoses [...] documented as of this encounter Care Teams Clinic Supervisor Relationship Specialty Start Date End Date Esha Girmm PA-C [address] [place] [phone] PCP - General Family Medicine 05/04/23 Diana Desir [facility] [address] [place], [place] 7823[address] Pharmacist Pharmacist 04/17/21 Rain Galaviz PA-C [address] [place] [address] [address] [place] [address] Physician Underwriting Technician Dermatology 04/28/21 Tavia Wyatt MD [address] [place] [address] [place] [address] Dermatology 07/14/21 Erica Farrell APRN PIG IRON LOADER [address] [place] 762745 Nurse Practitioner Cardiovascular Disease 09/09/21 Rich Barrett MD [address] [place] 413145 Physician Ophthalmology 01/21/22 Neil Kent MD 500 [place], [place] [address]135 Dermatology 02/24/22 Diana Desir, [facility] [address] [place] [address] Assigned MTM Pharmacist 04/07/22 Livan Sharif MD [address] [place] 7109[address] Cardiovascular Disease 05/14/22 Catherine Cm MD [address] [place] 693745 Cardiovascular Disease 07/21/22 Valery Veronica PA-C 909 [place], [place] 798845 Physician Underwriting Technician Dermatology 07/21/22 Brea Quinn APRN PIG IRON LOADER 500 [place], [place] 161575 Nurse Practitioner Dermatology 09/21/22 Brea Quinn APRN PIG IRON LOADER 6401 [facility] [place] 791822 Assigned Surgical Provider 10/09/22 05/01/24 [place] [address] [address] [place] [address] Assigned Musculoskeletal Provider 10/09/22 05/01/24 Alfonso Renteria MD 5775 [facility] 200 [place], [place] 20099416 Assigned Neuroscience Provider 04/02/23 09/29/24 Radha Lomeli APRN PIG IRON LOADER 6405 [facility] [address] [place] 858065 Assigned Heart and Vascular Provider 05/28/23 11/29/24 [place]ena Davdi OD [address] [facility] [address] [place] [phone] Ophthalmology 06/15/23 Esha Grimm PA-C [address] [place] [address] Assigned PCP 07/16/23 Valery Veronica PA-C 9 [place], [place] 178285 Physician Underwriting Technician Dermatology 09/19/23 Rey Tay MD [address] [place] [address] MD Gastroenterology 09/20/23 Rocky Zepeda DO [address] [place] [address] 453495 Physician Gastroenterology 09/20/23 Philip Dumont MD [address] [place] [address] 171405 Physician Ophthalmology 09/22/23 Meredith Carrera PA-C [address] [place] [address] 284765 Assigned Gastroenterology Provider 11/01/23 Neil Kent MD [address] [address] Dermatology 11/02/23 [place] [address] [place] [address] Neurological Surgery 12/26/23 Audrey Waite PA-C [address] [place] [address] Physician Underwriting Technician Dermatology 02/28/24 Valery Veronica PA-C [address] [place] [address] Physician Underwriting Technician Dermatology 04/10/24 Herminia Hatch MD [facility] [place] [address] Assigned Rheumatology Provider 07/02/24 Jelena David OD [address] [place] [address] [place] [address] Ophthalmology 08/30/24 [place] [address] [place] [address] Assigned Neuroscience Provider 09/30/24 Maru Man PA-C [address] [place] [address] Physician Underwriting Technician Dermatology 10/03/24 Maru Man PA-C [address] [place] [address] Physician Underwriting Technician Dermatology 10/22/24 Jelena David OD [address] [place] [address] [place] [address] Assigned Surgical Provider 10/31/24 Fabiano [place] NP [address] [place] [address] Assigned Heart and Vascular Provider 11/30/24 documented as of this encounter
--- OUTSIDE RECORDS SUMMARY | 2024-12-31 03:17 | XMS_ITS | Encounter Summary ---
Author Organization [place] Address [address] [place] [address] Care Team Providers Care Child Neurologist Name Role Phone Diana Desir [facility] Unavailable Rain Galaviz PA-C Unavailable Tavia Wyatt MD Unavailable [phone] Erica Farrell APRN VETERINARY PHYSIOLOGIST Unavailable Rich Barrett MD Unavailable [phone] Neil Kent MD Unavailable Diana Desir [facility] Unavailable Livan Sharif MD Unavailable Catherine Cm MD Unavailable + Valery Veronica PA-C Unavailable Brea Quinn HEAD WAITRESS VETERINARY PHYSIOLOGIST Unavailable Brea Quinn HEAD WAITRESS VETERINARY PHYSIOLOGIST Unavailable [phone] Jose Francisco Johnson MD Unavailable Alfonso Renteria MD Unavailable [phone] Esha Grimm PA-C Primary Care Provider Radha Lomeli APRN VETERINARY PHYSIOLOGIST Unavailable Jelena David OD Unavailable [phone] Pao Joseph RN Unavailable Unavailable [facility] PA-C Unavailable [phone] Valery Veronica PA-C Unavailable Rey Tay [...] [facility] [place] [facility] [address] [address] [place] [place], [address] [place] [address] Social History Tobacco Use Types [...] you attend formerly [facility] or yazidi services? 1 to 4 times [...] 0 10/25/2023 [facility] - [facility]ational Stress [...] exercise at this level? 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 Gender Identity Female 03/02/2021 5:45 PM CDT Sexual Orientation Straight 02/28/2020 12 :51 AM CDT documented as of this encounter Plan of Treatment Upcoming Encounters Date Type Department Care Team (Latest Contact Info) Description 01/02/2025 1:10 PM CDT Ancillary Procedure [address] [address] Lauren Claudio PA-C [address] [place] [address] 01/17/2025 10:00 AM CDT Appointment [facility] Respiratory [address] [place] [phone] Lauren Claudio PA-C [address] [place] [address] 04/16/2025 11:00 AM CDT Virtual Visit [facility] [address] [place] [phone] Meredith Carrera PA-C [address] [place] [address] documented as of this encounter Visit Diagnoses [...] 4 06/20/20 23 8:40 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 documented as of this encounter Care Teams Child Neurologist Relationship Specialty Start Date End Date Esha Grimm PA-C [address] [place] [phone] PCP - General Family Medicine 05/04/23 Diana Desir, [facility] [address] [place] [address] Pharmacist Pharmacist 04/17/21 Rain Galaviz PA-C [address] [place] [address] [address] [place] [address] Physician Cut And Cover Line Worker Dermatology 04/28/21 Tavia Wyatt MD [address] [place] [address] [address] [place] [address] Dermatology 07/14/21 Erica Farrell APRN VETERINARY PHYSIOLOGIST [address] [place] [address] Nurse Practitioner Cardiovascular Disease 09/09/21 Rich Barrett MD [address] [place] [address] Physician Ophthalmology 01/21/22 Neil Kent MD 500 [place] [address] Dermatology 02/24/22 Diana Desir, [facility] [address] [place] [address] Assigned MTM Pharmacist 04/07/22 Livan Sharif MD [address] [facility] [address] [place] 47[address]75 Cardiovascular Disease 05/14/22 Catherine Cm MD [address] [facility] [address] [place] [address] Cardiovascular Disease 07/21/22 Valery Veronica, PAUcheC [address] [place], [place] 532575 Physician Cut And Cover Line Worker Dermatology 07/21/22 Brea Quinn APRN VETERINARY PHYSIOLOGIST [address] [place] [address] 773735 Nurse Practitioner Dermatology 09/21/22 Brea Quinn APRN VETERINARY PHYSIOLOGIST [address] [place] [address] [place] [id number] Assigned Surgical Provider 10/09/22 05/01/24 [place] [address] [address] [facility] 300 [place] [address] Assigned Musculoskeletal Provider 10/09/22 05/01/24 Alfonso Renteria MD 5775 [facility] 200 [place] [address] Assigned Neuroscience Provider 04/02/23 09/29/24 Radha Lomeli APRN VETERINARY PHYSIOLOGIST [address] [place] [phone] [place] [address] Assigned Heart and Vascular Provider 05/28/23 11/29/24 Jelena David OD [address] [facility] [place] [address] MD Ophthalmology 06/15/23 Pao Joseph, RN Personal Advocate & Liaison (PAL) Nurse 08/01/23 11/07/23 Esha Grimm PA-C [address] [place] [address] Assigned PCP 07/16/23 Valery Veronica PA-C [address] [place] [address] Physician Cut And Cover Line Worker Dermatology 09/19/23 Rey Tay MD [address] [place] [address] MD Gastroenterology 09/20/23 Rocky Zepeda DO [address] [place] [address] Physician Gastroenterology 09/20/23 Philip Dumont MD [address] [place] [address] Physician Ophthalmology 09/22/23 Meredith Carrera PA-C [address] [place] [address] Assigned Gastroenterology Provider 11/01/23 Neil Kent MD [address] [place] [address] 019420 Dermatology 11/02/23 [place] [address] [place] [address] Neurological Surgery 12/26/23 Audrey Waite PA-C 500 [place] [address] Physician Cut And Cover Line Worker Dermatology 02/28/24 Valery Veronica PA-C [id number] [place] [address] Physician Cut And Cover Line Worker Dermatology 04/10/24 Herminia Hatch MD [address] [place] [address] [id number] Assigned Rheumatology Provider 07/02/24 Jelena David OD [address] [place] [address] [place] [address] Ophthalmology 08/30/24 [place] [address] [place] [address] Assigned Neuroscience Provider 09/30/24 Maru Man PA-C [address] [place] [address] Physician Cut And Cover Line Worker Dermatology 10/03/24 Maru Man PA-C [address] [place] [address] Physician Cut And Cover Line Worker Dermatology 10/22/24 Jelena David OD [address] [place] [address] [place] [address] Assigned Surgical Provider 10/31/24 Fabiano Correa NP [address] [place] [address] Assigned Heart and Vascular Provider 11/30/24 documented as of this encounter
--- OUTSIDE RECORDS SUMMARY | 2024-12-31 03:17 | XMS_ITS | Encounter Summary ---
Author Organization [place] Address [address] [place] [address] Care Team Providers Care Plisse Machine Operator Name Role Phone Diana Desir [facility] Unavailable Rain Galaviz PA-C Unavailable Tavia Wyatt MD Unavailable [phone] Erica Farrell APRN ROTARY CUTTER Unavailable Rich Barrett MD Unavailable [phone] Neil Kent MD Unavailable Diana Desir [facility] Unavailable Livan Sharif MD Unavailable Catherine Cm MD Unavailable + Valery Veronica PA-C Unavailable [phone] Brea Quinn LAWYER ROTARY CUTTER Unavailable Brea Quinn LAWYER ROTARY CUTTER Unavailable [phone] Jose Francisco Johnson MD Unavailable Alfonso Renteria MD Unavailable [phone] Esha Grimm PA-C Primary Care Provider [phone] Radha Lomeli APRN ROTARY CUTTER Unavailable Jelena David OD Unavailable [phone] Esha Grimm PA-C Unavailable [phone] Valery Veronica PA-C Unavailable Rey Tay [...] [facility] [place] Medical Advice [facility] [address] [place] [address] Rain Burnette, RN Social History [...] Score 1 02/07/2024 [facility] - Occupational Stress Questionnaire [...] exercise at this level? 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 [address] [place] [phone] Lauren Claudio PA-C [address] [place] [address] 01/17/2025 10:00 AM CDT Appointment [facility] Respiratory [address] [place] [phone] Lauren Claudio PA-C [address] [place] [address] 04/16/2025 11:00 AM CDT Virtual Visit [facility] [address] 4th [place] [phone] Meredith Carrera PA-C [address] [place] [address] documented as of this encounter Visit Diagnoses [...] documented as of this encounter Care Teams Plisse Machine Operator Relationship Specialty Start Date End Date Esha Grimm PA-C [address] [place] [address] PCP - General Family Medicine 05/04/23 Diana Desir, [facility] [address] [place] [address] Pharmacist Pharmacist 04/17/21 Rain Galaviz PA-C [address] [place] [address] DR [address] Lara [place] [address] Physician Blue Prints Trimmer Dermatology 04/28/21 Tavia Wyatt MD [address] [place] [address] [address] Lara [place] [address] Dermatology 07/14/21 Erica Farrell APRN ROTARY CUTTER [address] [place] [id number] Nurse Practitioner Cardiovascular Disease 09/09/21 Rich Barrett MD [address] [place] 728605 Physician Ophthalmology 01/21/22 Neil Kent MD 500 [place], [place] 095075 Dermatology 02/24/22 Diana Desir, [facility] [address] [place], [place] 254146 Assigned MTM Pharmacist 04/07/22 Livan Sharif MD [address] [place] [address] [place] 665495 Cardiovascular Disease 05/14/22 Catherine Cm MD [address] [place] [address] [place] 034995 Cardiovascular Disease 07/21/22 Valery Veronica PA-C 909 [place], [place] 630855 Physician Blue Prints Trimmer Dermatology 07/21/22 Brea Quinn APRN ROTARY CUTTER 500 [place], [place] 301505 Nurse Practitioner Dermatology 09/21/22 Brea Quinn APRN ROTARY CUTTER 6401 [facility] [place] [id number] Assigned Surgical Provider 10/09/22 05/01/24 [place] [address] [place] [facility] 300 [place] [address] Assigned Musculoskeletal Provider 10/09/22 05/01/24 Alfonso Renteria MD 5775 [facility] 200 [place], [place] 613826 Assigned Neuroscience Provider 04/02/23 09/29/24 Radha Lomeli APRN ROTARY CUTTER 6405 [facility] [address] [place] [address] Assigned Heart and Vascular Provider 05/28/23 11/29/24 Jelena David OD [address] [facility] [place] [id number] Ophthalmology 06/15/23 Esha Grimm PA-C [address] [place] [phone] Assigned PCP 07/16/23 Valery Veronica PA-C 9 [place], [place] 416735 Physician Blue Prints Trimmer Dermatology 09/19/23 Rey Tay MD [address] [place] [address] [id number] MD Gastroenterology 09/20/23 Rocky Zepeda DO [address] [place] [address] 838845 Physician Gastroenterology 09/20/23 Philip Dumont MD [address] [place] [address] 474665 Physician Ophthalmology 09/22/23 Meredith Carrera PA-C [address] [place] [address] 748815 Assigned Gastroenterology Provider 11/01/23 Neil Kent MD [address] 346[address] Dermatology 11/02/23 [place] [address] [facility] [place] [address] Neurological Surgery 12/26/23 Audrey Waite PA-C [address] [place] [address] Physician Blue Prints Trimmer Dermatology 02/28/24 Valery Veronica PA-C [address] [place] [address] Physician Blue Prints Trimmer Dermatology 04/10/24 Herminia Hatch MD [employer] [place] [address] Assigned Rheumatology Provider 07/02/24 Jelena David OD [address] [place] [address] [place] [address] Ophthalmology 08/30/24 [place] [address] [place] [address] Assigned Neuroscience Provider 09/30/24 Maru Man PA-C [address] [place] [address] Physician Blue Prints Trimmer Dermatology 10/03/24 Maru Man PA-C [address] [place] [address] Physician Blue Prints Trimmer Dermatology 10/22/24 Jelena David OD [address] [facility] [place] [address] Assigned Surgical Provider 10/31/24 Fabiano Correa NP [address] [place] [address] Assigned Heart and Vascular Provider 11/30/24 documented as of this encounter
--- OUTSIDE RECORDS SUMMARY | 2024-12-31 03:18 | XMS_ITS | Encounter Summary ---
Author Organization [facility] Address [address] [place] [address] Care Team Providers Care Clothing Room Supervisor Name Role Phone Lita Oseguera Unavailable Unavailable Marija Edgar APRN COURTESY CLERK Primary Care Provider + Chanelle Mccann APRN CNM Unavailab le Kyara De La Fuente RN Unavailable [phone] Marija Edgar APRN COURTESY CLERK Unavailable Mynor Broussard MD Unavailable [phone] Keisha Dotson MD Unavailable [phone] Mary Mejia Unavailable Unavailable Stacey Briones BABY ATTENDANT Unavailable Lesley Guillermo CHW Unavailable Mary Mejia Unavailable Unavailable Lita Oseguera Unavailable Unavailable Galo Burrell MD Unavailable Unavailable Cristina Wood Unavailable Lesley Guillermo CHW Unavailable Meredith Bedoya Unavailable Unavailable Cristina Wood Unavailable Diana Desir [facility] Unavailable Ruhland, Rain Lena PA-C Unavailable Summer Lara MD Unavailable [phone] Summer Lara MD Unavailable [phone] Summer Lara MD Unavailable [phone] Tavia Wyatt MD Unavailable [phone] Johnny Murillo MD Unavailable [phone] Erica Farrell APRN COURTESY CLERK Unavailable VikasTeresita H Unavailable Tavia Wyatt MD Unavailable [phone] Diana Desir [facility] Unavailable [phone] Rich Barrett MD Unavailable [phone] Neil Kent MD Unavailable Roney Story [facility] Unavailable Erica Farrell APRN COURTESY CLERK Unavailable Diana Desir [facility] Unavailable [phone] Jelena David OD Unavailable Galo Burrell MD Unavailable Unavailable Livan Sharif MD Unavailable Livan Sharif MD Unavailable Catherine Cm MD Unavailable + Valery Veronica PA-C Unavailable [phone] Catherine Cm MD Unavailable + Johnny Murillo MD Unavailable +[phone] Brea Quinn APRN COURTESY CLERK Unavailable [phone] Brea Quinn TUBE INSPECTOR COURTESY CLERK Unavailable [phone] Jose Francisco Johnson MD Unavailable Livan Sharif MD Unavailable Catherine Cm MD Unavailable + Sydnie Martinez RN Unavailable Unavailable Alfonso Renteria MD Unavailable [phone] Esha Grimm PA-C Primary Care Provider Cheng Todd PA-C Unavailable Radha Lomeli APRN, CNP Unavailable Jelena David OD Unavailable [phone] Pao Joseph RN Unavailable Unavailable Esha Grimm PA-C Unavailable [phone] Valery Veronica PA-C Unavailable Rey Tay [...] Contact Info) Description 07/10/2020 MyC Medical Advice [facility] [place] [address] [place] [phone] Mynor Broussard MD [address] [place] [address] Social History Tobacco Use Types Packs/Day Years [...] PM CDT Legal Sex Female 4:13 AM PLATE STACKER HAND Gender Identity Female 03/02/2021 5:45 PM CDT Sexual Orientation Straight 02/28/2020 12 :51 AM CDT COVID-19 Exposure Response Date Recorded In the last month, have you been in contact with someone who was confirmed or suspected to have Coronavirus / COVID-19? No / Unsure 06/24/2020 3:01 PM PLATE STACKER HAND documented as of this encounter Plan of Treatment Upcoming Encounters Date Type Department Care Team (Latest Contact Info) Description 01/02/2025 1:10 PM CDT Ancillary Procedure [address] [phone] Lauren Claudio PA-C [address] [place] [address] 01/17/2025 10:00 AM CDT Appointment [facility] Respiratory [address] [place] [phone] Lauren Claudio PA-C [address] [place] [address] 04/16/2025 11:00 AM CDT Virtual Visit [facility] G[facility]ology [facility] [address] [place] [phone] Meredith Carrera PA-C [address] [place] [address] documented as of this encounter Visit Diagnoses Not on filedocumented in this encounter Additional Health Concerns Infection Onset Date Last Indicated Resolved Time Rule Out COVID-19 07/30/2020 07/30/2020 07/30/2020 7:11 PM PLATE STACKER HAND Rule Out COVID-19 08/30/2020 08/30/2020 08/30/2020 5:05 PM PLATE STACKER HAND Rule Out COVID-19 09/24/2020 09/24/2020 09/24/2020 9:24 AM CDT Rule Out COVID-19 11/05/2020 11/05/2020 11/06/2020 1:09 PM CDT Rule Out COVID-19 05/11/2021 05/11/2021 05/13/2021 10:18 AM CDT Rule Out COVID-19 07/13/2021 07/13/2021 07/14/2021 3:04 PM PLATE STACKER HAND Rule Out COVID-19 07/18/2021 07/18/2021 07/20/2021 1:56 PM PLATE STACKER HAND COVID-19 07/18/2021 07/18/2021 08/08/2021 11:3 9 PM PLATE STACKER HAND Rule Out COVID-19 12/18/2021 12/18/2021 12/19/2021 11:34 AM CDT Rule Out COVID-19 02/24/2022 02/24/2022 02/25/2022 1:08 PM CDT Rule Out COVID-19 04/26/2022 04/26/2022 04/26/2022 6:47 AM CDT Rule Out COVID-19 05/17/2022 05/17/2022 05/17/2022 10:20 PM PLATE STACKER HAND Rule Out COVID-19 06/09/2022 06/09/2022 06/09/2022 9:35 AM PLATE STACKER HAND COVID-19 06/09/2022 06/09/2022 06/30/2022 11:4 1 PM PLATE STACKER HAND Rule Out COVID-19 11/10/2022 11/10/2022 11/11/2022 [...] Total Score: 9 06/25/20 20 7:04 AM PLATE STACKER HAND documented as of this encounter Care Teams Clothing Room Supervisor Relationship Specialty Start Date End Date Marija Edgar APRN COURTESY CLERK PCP - General Nurse Practitioner 04/30/20 04/14/23 Esha Grimm PA-C [address] [place] [phone] PCP - General Family Medicine 05/04/23 Lita Oseguera Personal Advocate & Liaison (PAL) 02/28/20 03/27/23 Chanelle Mccann APRN CNM [address] [place] [address] Assigned OBGYN Provider 05/02/2005/09 Kyara De La Fuente, RN Specialty Agricultural Technical Officer Neurology 06/04/20 03/05/21 Marija Edgar APRN CNP Assigned PCP 06/08/20 04/29/23 Mynor Broussard MD [address] [id number] Assigned Surgical Provider 06/01/20 11/28/21 Keisha Dotson MD [address] [place], [place] [phone] Assigned Neuroscience Provider 06/04/20 04/01/23 Mary Mejia Financial Resource Worker 08/07/20 08/21/20 Stacey Briones, [facility] Lead Agricultural Technical Officer Primary Care - CC 08/11/2012/30 Lesley Guillermo, [facility] Community Health Worker 08/11/2010/01 Mary Mejia Financial Resource Worker 09/02/20 10/06/20 Liat Oseguera Personal Advocate & Liaison (PAL) Family Medicine 09/10/20 09/21/20 Galo Burrell MD Assigned Heart and Vascular Provider 10/05/20 04/02/22 Cristina Wood Financial Resource Worker 10/07/20 10/14/20 Lesley Guillermo, [facility] Community Health Worker 10/23/2012/30 Meredith Bedoya Financial Resource Worker 10/23/20 11/23/20 Cristina Wood Financial Resource Worker 02/09/21 02/09/21 [facility] [address] [place] [address] Pharmacist Pharmacist 04/17/21 Rain Galaviz PA-C [address] [place] [address] [place] [address] Physician Wall Crane Operator Dermatology 04/28/21 Summer Lara MD [address] [place] [address] [place], [place] 665784 Assigned OBGYN Provider 05/10/2105/23 Summer Lara MD [address] [place] [address] Assigned OBGYN Provider 05/31/21 Summer Lara MD [address] [place] [address] [place], [place] 688954 Assigned OBGYN Provider 05/24/2105/30 Tavia Wyatt MD [address] [place], [place] 544394 Dermatology 07/14/21 Johnny Murillo MD [address] [place] [address] Assigned Musculoskeletal Provider 08/30/21 03/17/22 Erica Farrell APRN COURTESY CLERK [address] [facility] [address] [place] [address] Nurse Practitioner Cardiovascular Disease 09/09/21 Teresita Bean [facility] [address] [place] [address] Pharmacist Pharmacist 09/24/21 09/29/21 Tavia Wyatt MD [address] [place] [address] Assigned Surgical Provider 11/29/21 05/07/22 Diana Desir, [facility] [place] [address] Assigned MTM Pharmacist 01/02/22 Rich Barrett MD [facility] [place] [address] Physician Ophthalmology 01/21/22 Neil Kent MD [address] [place], [place] [phone] Dermatology 02/24/22 Roney Story DPM [address] [facility] [address] [place] [address] Assigned Musculoskeletal Provider 03/20/22 08/13/22 Eriac Farrell APRN COURTESY CLERK [address] [place] [address] Assigned Heart and Vascular Provider 04/03/22 04/16/22 Diana Desir, [facility] [place] [address] Assigned MTM Pharmacist 04/07/22 Jelena David OD [address] [facility] [place] [address] Assigned Surgical Provider 05/08/22 10/08/22 Galo Burrell MD Assigned Heart and Vascular Provider 04/17/22 06/11/22 Livan Sharif MD [address] [place] [address] Cardiovascular Disease 05/14/22 Livan Shraif MD [address] [place] [address] Assigned Heart and Vascular Provider 06/12/22 07/23/22 Catherine Cm MD [address] [place] [address] Cardiovascular Disease 07/21/22 Valery Veronica, PA-C [address] [place] [address] Physician Wall Crane Operator Dermatology 07/21/22 Catherine Cm MD [address] [place] [address] Assigned Heart and Vascular Provider 07/24/22 11/05/22 Johnny Murillo MD [facility] [place][note 2][address] [address] Assigned Musculoskeletal Provider 08/14/22 10/08/22 Brea Quinn APRN COURTESY CLERK [address] [place] [address] Nurse Practitioner Dermatology 09/21/22 Brea Quinn APRN COURTESY CLERK [address] [facility] [place] [address] Assigned Surgical Provider 10/09/22 05/01/24 [place] [address] [place] [address] Assigned Musculoskeletal Provider 10/09/22 05/01/24 Livan Sharif MD [address] [place] [address] Assigned Heart and Vascular Provider 11/06/22 11/12/22 Catherine Cm MD [address] [facility] [address] [place] [address] Assigned Heart and Vascular Provider 11/13/22 05/27/23 Sydnie Martinez RN Personal Advocate & Liaison (PAL) Family Medicine 03/28/23 07/31/23 Alfonso Renteria MD [address] [facility] [address] [place] [address] Assigned Neuroscience Provider 04/02/23 09/29/24 Cheng Todd PA-C [address] [place] [address] Assigned PCP 04/30/23 07/15/23 Radha Lomeli APRN COURTESY CLERK [address] [place] [address] Assigned Heart and Vascular Provider 05/28/23 11/29/24 Jelena David OD [address] [facility] [place] [address] MD Ophthalmology 06/15/23 Pao Joseph, VJ Personal Advocate & Liaison (PAL) Nurse 08/01/23 11/07/23 Esha Grimm PA-C [address] [place] [phone] Assigned PCP 07/16/23 Valery Veronica PA-C [address] [place] [address] 090695 Physician Wall Crane Operator Dermatology 09/19/23 Rey Tay MD [address] [place] [address] [phone] Gastroenterology 09/20/23 Rocky Zepeda DO [address] [place] [address] 404455 Physician Gastroenterology 09/20/23 Philip Dumont MD [address] [place] [address] Physician Ophthalmology 09/22/23 Meredith Carrera PA-C [address] [place] [address] Assigned Gastroenterology Provider 11/01/23 Neil Kent MD [address] [address] Dermatology 11/02/23 [place] [address] [place] [address] Neurological Surgery 12/26/23 Audrey Waite PA-C [address] [place] [address] Physician Wall Crane Operator Dermatology 02/28/24 Valery Veronica PA-C 012738 [address] [address] Physician Wall Crane Operator Dermatology 04/10/24 Herminia Hatch MD [address] [place] [address] Assigned Rheumatology Provider 07/02/24 Jelena David OD [address] [place] [address] [place] [address] Ophthalmology 08/30/24 [place] [address] [place] [address] Assigned Neuroscience Provider 09/30/24 Maru Man PA-C [address] [place] [address] Physician Wall Crane Operator Dermatology 10/03/24 Maru Man PA-C [address] [place] [address] Physician Wall Crane Operator Dermatology 10/22/24 Jelena David OD [address] [facility] [place] [address] Assigned Surgical Provider 10/31/24 Fabiano Correa NP [address] [place] [address] Assigned Heart and Vascular Provider 11/30/24 documented as of this encounter
--- OUTSIDE RECORDS SUMMARY | 2024-12-31 03:18 | XMS_ITS | Encounter Summary ---
Author Organization [facility] Address [address] [place] [address] Care Team Providers Care Mammalogy Teacher Name Role Phone Lita Oseguera Unavailable Unavailable Rakesh Cid PA-C Unavailable Marija Edgar APRN STEEL GRINDER Primary Care Provider + Chanelle Mccann APRN CN Unavailab le Lesley Guillermo CHW Unavailable [phone] Kyara De La Fuente RN Unavailable [phone] Marija Edgar APRN [facility] Unavailable Mynor Broussard MD Unavailable [phone] Keisha Dotson MD Unavailable [phone] Mary Mejia Unavailable Unavailable Stacey Briones NAPPER RUNNER Unavailable [phone] Lesley Guillermo CHW Unavailable [phone] Mary Mejia Unavailable Unavailable Lita Oseguera Unavailable Unavailable Galo Burrell MD Unavailable Unavailable Cristina Wood Unavailable Lesley Guillermo CHW Unavailable [phone] Meredith Bedoya Unavailable Unavailable Cristina Wood Unavailable [facility] Unavailable [phone] Rain Galaviz PA-C Unavailable Summer Lara MD Unavailable Summer Lara MD Unavailable [phone] Summer Lara MD Unavailable [phone] Tavia Wyatt MD Unavailable [phone] Johnny Murillo MD Unavailable [phone] Erica Farrell APRN STEEL GRINDER Unavailable [facility] Bean [facility] Unavailable Tavia Wyatt MD Unavailable [phone] [facility] Unavailable [phone] Rich Barrett MD Unavailable Neil Kent MD Unavailable Roney StoryM Unavailable Erica Farrell APRN STEEL GRINDER Unavailable + [facility] Unavailable [phone] Jelena David OD Unavailable Galo Burrell MD Unavailable Unavailable Livan Sharif MD Unavailable Livan Sharif MD Unavailable + Catherine Cm MD Unavailable + Valery Veronica PA-C Unavailable [phone] Catherine Cm MD Unavailable + Johnny Murillo MD Unavailable [phone] Brea Quinn APRN STEEL GRINDER Unavailable [phone] [place], Brea P VENEER TAPING MACHINE OFFBEARER STEEL GRINDER Unavailable [phone] Jose Francisco Johnson MD Unavailable Livan Sharif MD Unavailable Catherine Cm MD Unavailable + Sydnie Martinez RN Unavailable Unavailable Alfonso Renteria MD Unavailable Esha Grimm PA-C Primary Care Provider Cheng Todd PA-C Unavailable Armani Radha Sia VENEER TAPING MACHINE OFFBEARER STEEL GRINDER Unavailable [phone] Jelena David OD Unavailable [phone] Pao Joseph RN Unavailable Unavailable Esha Grimm PA-C Unavailable [phone] Valery Veronica PA-C Unavailable Rey Tay MD Unavailable Rocky Zepeda DO Unavailable Philip Dumont MD Unavailable [phone] Meredith Carrera PA-C Unavailable [phone] Neil Kent MD Unavailable Juan Pablo Emmanuel MD Unavailable Audrey Waite PA-C Unavailable Valery Veronica PA-C Unavailable Herminia Hatch MD Unavailable Jelena David OD Unavailable [phone] Juan Pablo Emmanuel MD Unavailable Maru Man PA-C Unavailable [phone] Maru Man PA-C Unavailable [phone] Jelena David OD Unavailable Fabiano Correa CREDIT COLLECTIONS CLERK Unavailable Encounter Details Date Type Department Care Team (Late st Contact Info) Description 05/23/2020 MyC Medical Advice [facility] [address] [place] [address] [phone] Marija Edgar, VENEER TAPING MACHINE OFFBEARER STEEL GRINDER [address] [place] [address] Social History Tobacco Use Types Packs/Day [...] PM CDT Legal Sex Female 4:13 AM CORRESPONDENCE REPRESENTATIVE Gender Identity Female 03/02/2021 5:45 PM CDT Sexual Orientation Straight 02/28/2020 12 :51 AM CDT COVID-19 Exposure Response Date Recorded In the last month, have you been in contact with someone who was confirmed or suspected to have Coronavirus / COVID-19? No / Unsure 05/12/2020 9:03 AM CORRESPONDENCE REPRESENTATIVE documented as of this encounter Plan of Treatment Upcoming Encounters Date Type Department Care Team (Latest Contact Info) Description 01/02/2025 1:10 PM CDT Ancillary Procedure [address] [phone] Lauren Claudio PA-C [address] [place], [place] [phone] 01/17/2025 10:[address] [facility] Respiratory [address] [place] [phone] Lauren Claudio PA-C [address] [place] [address] [phone] 04/16/2025 11:00 AM CDT Virtual Visit [facility] [address] [place] [phone] Meredith Carrera PA-C [address] [place] [address] documented as of this encounter Visit Diagnoses Not on filedocumented in this encounter Additional Health Concerns Infection Onset Date Last Indicated Resolved Time Rule Out COVID-19 07/30/2020 07/30/2020 07/30/2020 7:11 PM CORRESPONDENCE REPRESENTATIVE Rule Out COVID-19 08/30/2020 08/30/2020 08/30/2020 5:05 PM CORRESPONDENCE REPRESENTATIVE Rule Out COVID-19 09/24/2020 09/24/2020 09/24/2020 9:24 AM CDT Rule Out COVID-19 11/05/2020 11/05/2020 11/06/2020 1:09 PM CDT Rule Out COVID-19 05/11/2021 05/11/2021 05/13/2021 10:18 AM CDT Rule Out COVID-19 07/13/2021 07/13/2021 07/14/2021 3:04 PM CORRESPONDENCE REPRESENTATIVE Rule Out COVID-19 07/18/2021 07/18/2021 07/20/2021 1:56 PM CORRESPONDENCE REPRESENTATIVE COVID-19 07/18/2021 07/18/2021 08/08/2021 11:3 9 PM CORRESPONDENCE REPRESENTATIVE Rule Out COVID-19 12/18/2021 12/18/2021 12/19/2021 11:34 AM CDT Rule Out COVID-19 02/24/2022 02/24/2022 02/25/2022 1:08 PM CDT Rule Out COVID-19 04/26/2022 04/26/2022 04/26/2022 6:47 AM CDT Rule Out COVID-19 05/17/2022 05/17/2022 05/17/2022 10:20 PM CORRESPONDENCE REPRESENTATIVE Rule Out COVID-19 06/09/2022 06/09/2022 06/09/2022 9:35 AM CORRESPONDENCE REPRESENTATIVE COVID-19 06/09/2022 06/09/2022 06/30/2022 11:4 1 PM CORRESPONDENCE REPRESENTATIVE Rule Out COVID-19 11/10/2022 11/10/2022 11/11/2022 [...] Depression Total Score: 6 08/28/19 7:05 AM CORRESPONDENCE REPRESENTATIVE documented as of this encounter Care Teams Mammalogy Teacher Relationship Specialty Start Date End Date Marija Edgar APRN CNP [address] [place] [address] PCP - General Nurse Practitioner 04/30/20 04/14/23 Esha Grimm PA-C [address] [place] [phone] PCP - General Family Medicine 05/04/23 Lita Oseguera Personal Advocate & Liaison (PAL) 02/28/20 03/27/23 Rakesh Cid PA-C [address] [place] [address] Assigned PCP 03/02/20 06/07/20 Chanelle Mccann APRN CNM [address] [place] [address] 200 [place] [address] Assigned OBGYN Provider 05/02/2005/09 Lesley Guillermo, CHW Community Health Worker 05/30/2005/12 Kyara De La Fuente, RN Specialty Head Still Operator Neurology 06/04/20 03/05/21 Marija Edgar APRN STEEL GRINDER [address] [facility] [place] [address] Assigned PCP 06/08/20 04/29/23 Mynor Broussard MD 6363 [facility] 500 [place], [place] 469945 Assigned Surgical Provider 06/01/20 11/28/21 Keisha Dotson MD 9 [place], [place] 406445 Assigned Neuroscience Provider 06/04/20 04/01/23 Mary Mejia Financial Resource Worker 08/07/20 08/21/20 Stacey Briones, NAPPER RUNNER Lead Head Still Operator Primary Care - CC 08/11/2012/30 Lesley Guillermo, CHW Community Health Worker 08/11/2010/01 Mary Mejia Financial Resource Worker 09/02/20 10/06/20 Lita Oseguera Personal Advocate & Liaison (PAL) Family Medicine 09/10/20 09/21/20 Galo Burrell MD Assigned Heart and Vascular Provider 10/05/20 04/02/22 Cristina Wood Financial Resource Worker 10/07/20 10/14/20 Lesley Guillermo, [facility] Community Health Worker 10/23/2012/30 Meredith Bedoya Financial Resource Worker 10/23/20 11/23/20 Cristina Wood Financial Resource Worker 02/09/21 02/09/21 Diana Desir, [facility] [address] [place] [address] Pharmacist Pharmacist 04/17/21 Rain Galaviz PA-C [address] [place] [address] [address] [place], [place] [phone] Physician Head Resident Dermatology 04/28/21 Summer Lara MD [address] [place] [address] [phone] Assigned OBGYN Provider 05/10/2105/23 Summer Lara MD [address] [place] [address] [phone] Assigned OBGYN Provider 05/31/21 Summer Lara MD [address] [place] [address] [phone] Assigned OBGYN Provider 05/24/2105/30 Tavia Wyatt MD [address] [place] [address] Dermatology 07/14/21 Jonhny Murillo MD [address] [place] [address] Assigned Musculoskeletal Provider 08/30/21 03/17/22 Erica Farrell APRN STEEL GRINDER 6[address] [facility] [address] [place] [address] Nurse Practitioner Cardiovascular Disease 09/09/21 Teresita Bean, [facility] [address] [facility] [address] [place], [place] [phone] Pharmacist Pharmacist 09/24/21 09/29/21 Tavia Wyatt MD [address] [place] [address] Assigned Surgical Provider 11/29/21 05/07/22 [facility] [address] [place] [address] Assigned MTM Pharmacist 01/02/22 Rich Barrett MD [address] [place] [address] Physician Ophthalmology 01/21/22 Neil Kent MD 500 [place] [address] Dermatology 02/24/22 Roney Story DPM 55896 [facility] [address] [place] [address] Assigned Musculoskeletal Provider 03/20/22 08/13/22 Erica Farrell APRN CNP 1700 [place] [address] Assigned Heart and Vascular Provider 04/03/22 04/16/22 [facility] [address] [place] [address] Assigned MTM Pharmacist 04/07/22 Jelena David OD [address] [place] [place] [address] Assigned Surgical Provider 05/08/22 10/08/22 Galo Burrell MD Assigned Heart and Vascular Provider 04/17/22 06/11/22 Livan Sharif MD [address] [place] 881435 Cardiovascular Disease 05/14/22 Livan Sharif MD [address] [place] [address] Assigned Heart and Vascular Provider 06/12/22 07/23/22 Catherine Cm MD [address] [place] 838115 Cardiovascular Disease 07/21/22 Valery Veronica, PAUcheC 909 [place], [place] 137485 Physician Head Resident Dermatology 07/21/22 Catherine Cm MD [address] [address] [place] [address] Assigned Heart and Vascular Provider 07/24/22 11/05/22 Johnny Murillo MD [facility] [address] 054174 Assigned Musculoskeletal Provider 08/14/22 10/08/22 Brea Quinn APRN STEEL GRINDER [address] [place] [address] 999305 Nurse Practitioner Dermatology 09/21/22 Brea Quinn APRN STEEL GRINDER [address] [place] [address] Assigned Surgical Provider 10/09/22 05/01/24 [place] [address] RAZO [address] [place] [address] Assigned Musculoskeletal Provider 10/09/22 05/01/24 Livan Sharif MD [address] [address] [place] [address] Assigned Heart and Vascular Provider 11/06/22 11/12/22 Catherine Cm MD [address] [address] [place] [address] Assigned Heart and Vascular Provider 11/13/22 05/27/23 Sydnie Martinez RN Personal Advocate & Liaison (PAL) Family Medicine 03/28/23 07/31/23 Alfonso Renteria MD [address] [facility] [address] [place] [address] Assigned Neuroscience Provider 04/02/23 09/29/24 Cheng Todd PA-C [address] [place] [address] [phone] Assigned PCP 04/30/23 07/15/23 Radha Lomeli APRN STEEL GRINDER [address] [facility] [address] [place] [address] Assigned Heart and Vascular Provider 05/28/23 11/29/24 Jelena David OD [address] [place] [place] [address] Ophthalmology 06/15/23 Pao Joseph, RN Personal Advocate & Liaison (PAL) Nurse 08/01/23 11/07/23 Esha Grimm PA-C [address] [place] [address] Assigned PCP 07/16/23 Valery Veronica PA-C [address] [place] [address] Physician Head Resident Dermatology 09/19/23 Rey Tay MD [address] [place] [address] 783125 Gastroenterology 09/20/23 Rocky Zepeda DO [address] [place] [address] Physician Gastroenterology 09/20/23 Philip Dumont MD 6 [place] [address] Physician Ophthalmology 09/22/23 Mereidth Carrera PA-C [address] [place] [address] Assigned Gastroenterology Provider 11/01/23 Neil Kent MD [address] [place] [address] 612940 MD Dermatology 11/02/23 [place] [address] [address] [facility] [place] [address] Neurological Surgery 12/26/23 Audrey Waite PA-C [address] [place] [address] 182885 Physician Head Resident Dermatology 02/28/24 Valery Veronica PA-C 692877 [place], [place] [address] Physician Head Resident Dermatology 04/10/24 Herminia Hatch MD [facility]5 [place], [place] [phone] Assigned Rheumatology Provider 07/02/24 [place] [address] [place] [address] [place] [address] Ophthalmology 08/30/24 [place] [address] [place] [address] Assigned Neuroscience Provider 09/30/24 Maru Man PA-C [address] [place] [address] Physician Head Resident Dermatology 10/03/24 Maru Man PA-C [address] [place] [address] 284660 Physician Head Resident Dermatology 10/22/24 Jelena David OD [address] [facility] [place] [address] Assigned Surgical Provider 10/31/24 Fabiano Correa, BRYCE [address] [place] [place] [address] Assigned Heart and Vascular Provider 11/30/24 documented as of this encounter
--- OUTSIDE RECORDS SUMMARY | 2024-12-31 03:18 | XMS_ITS | Encounter Summary ---
Author Organization [facility] Address [address] [place] [address] Care Team Providers Care Ragman Name Role Phone Diana Desir [facility] Unavailable Rain Galaviz PA-C Unavailable [phone] Tavia Wyatt MD Unavailable [phone] Erica Farrell APRN APPLICATION DEFENSE MANAGER Unavailable Rich Barrett MD Unavailable [phone] Neil Kent MD Unavailable Diana Desir [facility] Unavailable Livan Sharif MD Unavailable Catherine Cm MD Unavailable + Valery Veronica PA-C Unavailable Brea Quinn WELL TESTER APPLICATION DEFENSE MANAGER Unavailable Brea Quinn WELL TESTER APPLICATION DEFENSE MANAGER Unavailable Jose Francisco Johnson MD Unavailable Alfonso Renteria MD Unavailable [phone] Esha Grimm PA-C Primary Care Provider [phone] Radha Lomeli APRN APPLICATION DEFENSE MANAGER Unavailable Jelena David OD Unavailable Pao Joseph RN Unavailable Unavailable AlfaJesusEsha M PA-C Unavailable [phone] Valery Veronica PA-C Unavailable Rey Tay MD Unavailable Rocky Zepeda DO Unavailable Philip Dumont MD Unavailable [phone] Meredith Carrera PA-C Unavailable Neil Kent MD Unavailable Juan Pablo Emmanuel MD Unavailable Audrey Waite PA-C Unavailable [phone] Valery Veronica PA-C Unavailable Herminia Hatch MD Unavailable Jelena David OD Unavailable Juan Pablo Emmanuel MD Unavailable [phone] Maru Man PA-C Unavailable Maru Man PA-C Unavailable Jelena David OD Unavailable Fabiano Correa NP Unavailable [phone] Encounter Details Date Type Department Care Team (Late st Contact Info) Description 10/26/2023 [facility] Medical Advice 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 Gender Identity Female 03/02/2021 5:45 PM CDT Sexual Orientation Straight 02/28/2020 12 :51 AM CDT documented as of this encounter Plan of Treatment Upcoming Encounters Date Type Department Care Team (Latest Contact Info) Description 01/02/2025 1:10 PM CDT Ancillary Procedure [facility] [address] [place] [phone] Lauren Claudio PA-C [address] [place] [address] 01/17/2025 10:00 AM CDT Appointment [facility] Respiratory [address] [facility] [place] [phone] Lauren Claudio PA-C [address] [place] [address] 04/16/2025 11:00 AM CDT Virtual Visit [facility] [address] 4th [place] [phone] Meredith Carrera PA-C [address] [place] [address] 061445 documented as of this encounter Visit Diagnoses [...] Total Score: 4 06/20/20 23 8:40 AM PRESS ROOM SUPERVISOR documented as of this encounter Care Teams Ragman Relationship Specialty Start Date End Date Esha Grimm PA-C [address] [place] [address] PCP - General Family Medicine 05/04/23 Diana Desir [facility] [address] [place] [address] Pharmacist Pharmacist 04/17/21 Rain Galaviz PA-C [address] [place] [address] [address] [place] [address] Physician District Manager Dermatology 04/28/21 Tavia Wyatt MD [address] [place] [address] [address] [facility] [address] Dermatology 07/14/21 Erica Farrell APRN APPLICATION DEFENSE MANAGER [address] [place] [address] Nurse Practitioner Cardiovascular Disease 09/09/21 Rich Barrett MD [address] [place] [address]65 Physician Ophthalmology 01/21/22 Neil Kent MD 500 [place] [address] Dermatology 02/24/22 Diana Desir, [facility] 3033 [place] [address] Assigned MTM Pharmacist 04/07/22 Livan Sharif MD [address] [place] [address] Cardiovascular Disease 05/14/22 Catherine Cm MD [address] [place] [address] Cardiovascular Disease 07/21/22 Valery Veronica PA-C 909 [place] [address] Physician District Manager Dermatology 07/21/22 Brea Quinn APRN APPLICATION DEFENSE MANAGER 500 [place] [address] Nurse Practitioner Dermatology 09/21/22 Brea Quinn APRN APPLICATION DEFENSE MANAGER [address] [place] [address] Assigned Surgical Provider 10/09/22 05/01/24 [place] [address] [facility] 300 [place] [address] Assigned Musculoskeletal Provider 10/09/22 05/01/24 Alfonso Renteria MD [address] [facility] 200 [place], [place] 421816 Assigned Neuroscience Provider 04/02/23 09/29/24 Radha Lomeli APRN APPLICATION DEFENSE MANAGER 6[address] [facility] [address] [place] [address] Assigned Heart and Vascular Provider 05/28/23 11/29/24 Jelena David OD [address] [facility] [place] [address] Ophthalmology 06/15/23 Pao Joseph, VJ Personal Advocate & Liaison (PAL) Nurse 08/01/23 11/07/23 Esha Grimm PA-C [address] [place] [phone] Assigned PCP 07/16/23 Valery Veronica PA-C [address] [place] [address] 088035 Physician District Manager Dermatology 09/19/23 Rey Tay MD [address] [place] [address] 633625 MD Gastroenterology 09/20/23 Rocky Zepeda DO [address] [place] [address] 247735 Physician Gastroenterology 09/20/23 Philip Dumont MD [address] [place] [address] 699995 Physician Ophthalmology 09/22/23 Meredith Carrera PA-C [address] [place] [address] 558095 Assigned Gastroenterology Provider 11/01/23 Neil Kent MD [address] [place] [address] Dermatology 11/02/23 [place] [address] [place] [address] Neurological Surgery 12/26/23 Audrey Waite PA-C 500 [place] [address] Physician District Manager Dermatology 02/28/24 Valery Veronica PA-C 495494 [address] [address] Physician District Manager Dermatology 04/10/24 Herminia Hatch MD [address] [place] [address] Assigned Rheumatology Provider 07/02/24 Jelena David OD [address] [place] [address] [place] [address] Ophthalmology 08/30/24 [place] [address] [place] [place] [address] Assigned Neuroscience Provider 09/30/24 Maru Man PA-C [address] [place] [address] Physician District Manager Dermatology 10/03/24 Maru Man PA-C [address] [place] [address] Physician District Manager Dermatology 10/22/24 Jelena David OD [address] [place] [address] [place] [address] Assigned Surgical Provider 10/31/24 Fabiano Correa NP 6405 [facility] [place] [address] Assigned Heart and Vascular Provider 11/30/24 documented as of this encounter
--- OUTSIDE RECORDS SUMMARY | 2024-12-31 03:18 | XMS_ITS | Encounter Summary ---
Author Organization [facility] Address [address] [place] [address] Care Team Providers Care Cork Slabs Sawyer Name Role Phone Lita Oseguera Unavailable Unavailable Marija Edgar APRN BOWLING PIN REFINISHER Primary Care Provider + Chanelle Mccann APRN CNM Unavailab le Kyara De La Fuente RN Unavailable [phone] Marija Edgar APRN BOWLING PIN REFINISHER Unavailable Mynor Broussard MD Unavailable [phone] Keisha Dotson MD Unavailable Mary Mejia Unavailable Unavailable Stacey Briones FREEZER TUNNEL OPERATOR Unavailable Lesley Guillermo CHW Unavailable Mary Mejia Unavailable Unavailable Lita Oseguera Unavailable Unavailable Galo Burrell MD Unavailable Unavailable Cristina Wood Unavailable Lesley Guillermo CHW Unavailable Meredith Bedoya Unavailable Unavailable Cristina Wood Unavailable Diana Desir [facility] Unavailable [phone] Ruhland, Rain Lena PA-C Unavailable Summer Lara MD Unavailable [phone] Summer Lara MD Unavailable [phone] Summer Lara MD Unavailable [phone] Tavia Wyatt MD Unavailable [phone] Johnny Murillo MD Unavailable [phone] Erica Farrell APRN BOWLING PIN REFINISHER Unavailable VikasTeresita H Unavailable Tavia Wyatt MD Unavailable [phone] Diana Desir [facility] Unavailable [phone] Rich Barrett MD Unavailable [phone] Neil Kent MD Unavailable Roney Story [facility] Unavailable Erica Farrell APRN BOWLING PIN REFINISHER Unavailable Diana Desir [facility] Unavailable [phone] Jelena David OD Unavailable Galo Burrell MD Unavailable Unavailable Livan Sharif MD Unavailable Livan Sharif MD Unavailable Catherine Cm MD Unavailable + Valery Veronica PA-C Unavailable [phone] Catherine Cm MD Unavailable + Johnny Murillo MD Unavailable +[phone] Brea Quinn APRN BOWLING PIN REFINISHER Unavailable [phone] Brea Quinn LEGAL SUPPORT ASSISTANT BOWLING PIN REFINISHER Unavailable [phone] Jose Francisco Johnson MD Unavailable Livan Sharif MD Unavailable Catherine Cm MD Unavailable + Sydnie Martniez RN Unavailable Unavailable Alfonso Renteria MD Unavailable [phone] Esha Grimm PA-C Primary Care Provider Cheng Todd PA-C Unavailable Radha Lomeli APRN, CNP Unavailable Jelena David OD Unavailable Pao Joseph RN Unavailable Unavailable Esha Grimm PA-C Unavailable [phone] Valery Veronica PA-C Unavailable Rey Tay [...] [facility] [address], [address] [place] [address] Keisha Dotson MD [address] [place] [address] Social History Tobacco Use Types Packs/Day Years [...] CDT Legal Sex Female 4:13 AM CITY DETECTIVE Gender Identity Female 03/02/2021 5:45 PM CDT Sexual Orientation Straight 02/28/2020 12 :51 AM CDT COVID-19 Exposure Response Date Recorded In the last month, have you been in contact with someone who was confirmed or suspected to have Coronavirus / COVID-19? No / Unsure 06/24/2020 3:01 PM CITY DETECTIVE documented as of this encounter Miscellaneous [...] her shewouldn't need medication her whole life. DETECTIVE documented in this encounter Plan of Treatment Upcoming Encounters Date Type Department Care Team (Latest Contact Info) Description 01/02/2025 1:10 PM CDT Ancillary Procedure [address] [phone] Lauren Claudio PA-C [id number] [place] [address] 01/17/2025 10:00 AM CDT Appointment [place] [id number] [place] [phone] Lauren Claudio PA-C [address] [place] [address] 04/16/2025 11:00 AM CDT Virtual Visit [facility] [address] [place] [phone] Meredith Carrera PA-C [address] [place] [address] documented as of this encounter Visit Diagnoses Not on filedocumented in this encounter Additional Health Concerns Infection Onset Date Last Indicated Resolved Time Rule Out COVID-19 07/30/2020 07/30/2020 07/30/2020 7:11 PM CITY DETECTIVE Rule Out COVID-19 08/30/2020 08/30/2020 08/30/2020 5:05 PM CITY DETECTIVE Rule Out COVID-19 09/24/2020 09/24/2020 09/24/2020 9:24 AM CDT Rule Out COVID-19 11/05/2020 11/05/2020 11/06/2020 1:09 PM CDT Rule Out COVID-19 05/11/2021 05/11/2021 05/13/2021 10:18 AM CDT Rule Out COVID-19 07/13/2021 07/13/2021 07/14/2021 3:04 PM CITY DETECTIVE Rule Out COVID-19 07/18/2021 07/18/2021 07/20/2021 1:56 PM CITY DETECTIVE COVID-19 07/18/2021 07/18/2021 08/08/2021 11:3 9 PM CITY DETECTIVE Rule Out COVID-19 12/18/2021 12/18/2021 12/19/2021 11:34 AM CDT Rule Out COVID-19 02/24/2022 02/24/2022 02/25/2022 1:08 PM CDT Rule Out COVID-19 04/26/2022 04/26/2022 04/26/2022 6:47 AM CDT Rule Out COVID-19 05/17/2022 05/17/2022 05/17/2022 10:20 PM CITY DETECTIVE Rule Out COVID-19 06/09/2022 06/09/2022 06/09/2022 9:35 AM CITY DETECTIVE COVID-19 06/09/2022 06/09/2022 06/30/2022 11:4 1 PM CITY DETECTIVE Rule Out COVID-19 11/10/2022 11/10/2022 11/11/2022 [...] 11/21/2024 11/22/2024 12:10 AM CDT Influenza 11/21/2024 11/21/202411/28/2024 7:42 PM CDT Assessment Noted Time PHQ-9 Depression Total Score: 9 06/25/20 7:04 AM CITY DETECTIVE documented as of this encounter Care Teams Cork Slabs Sawyer Relationship Specialty Start Date End Date Marija Edgar APRN BOWLING PIN REFINISHER PCP - General Nurse Practitioner 04/30/20 04/14/23 Esha Grimm PA-C [address] [place] [phone] PCP - General Family Medicine 05/04/23 Lita Oseguera Personal Advocate & Liaison (PAL) 02/28/20 03/27/23 Chanelle Mccann APRN CNM [id number] [place] [address] [address] [place] [address] Assigned OBGYN Provider 05/02/2005/09 Kyara De La Fuente, RN Specialty Flight Operations Dispatch Clerk Neurology 06/04/20 03/05/21 Marija Edgar APRN BOWLING PIN REFINISHER Assigned PCP 06/08/20 04/29/23 Mynor Broussard MD [address] [facility] 500 [place], [place] [address] Assigned Surgical Provider 06/01/20 11/28/21 Keisha Dotson MD [address] [place] [address] Assigned Neuroscience Provider 06/04/20 04/01/23 Mary Mejia Financial Resource Worker 08/07/20 08/21/20 Stacey Briones, [facility] Lead Flight Operations Dispatch Clerk Primary Care - CC 08/11/2012/30 Lesley Guillermo, [facility] Community Health Worker 08/11/2010/01 Mary Mejia Financial Resource Worker 09/02/20 10/06/20 Lita Oseguera Personal Advocate & Liaison (PAL) Family Medicine 09/10/20 09/21/20 Galo Burrell MD Assigned Heart and Vascular Provider 10/05/20 04/02/22 Cristina Wood Financial Resource Worker 10/07/20 10/14/20 Lesley Guillermo, [facility] Community Health Worker 10/23/2012/30 Meredith Bedoya Financial Resource Worker 10/23/20 11/23/20 Cristina Wood Financial Resource Worker 02/09/21 02/09/21 Diana Desir, [facility] [address] [facility] [place] [place] [phone] Pharmacist Pharmacist 04/17/21 Rain Galaviz PA-C [address] [place] [address] [address] [place], [place] [phone] Physician Relay Technician Dermatology 04/28/21 Summer Lara MD [address] [place] [address] Assigned OBGYN Provider 05/10/2105/23 Summer Lara MD [address] [place] [address] Assigned OBGYN Provider 05/31/21 2 Summer Lara MD [address] [place] [address] [phone] Assigned OBGYN Provider 05/24/2105/30 Tavia Wyatt MD [address] [place] [address] 759174 Dermatology 07/14/21 Johnny Murillo MD [address] [facility] [address] [place], [place] [address] Assigned Musculoskeletal Provider 08/30/21 03/17/22 Erica Farrell APRN BOWLING PIN REFINISHER [address] [facility] [address] [place] [address] Nurse Practitioner Cardiovascular Disease 09/09/21 Teresita Bean [facility] [address] [place] [place], [place] [phone] Pharmacist Pharmacist 09/24/21 09/29/21 Tavia Wyatt MD [facility] [place], [place] [address] Assigned Surgical Provider 11/29/21 05/07/22 [facility] [address] [place], [place] 126206 Assigned MTM Pharmacist 01/02/22 Rich Barrett MD [address] [place] [address] [phone] Physician Ophthalmology 01/21/22 Neil Kent MD 500 [place], [place] [phone] Dermatology 02/24/22 Roney Story DPM [address] [facility] [address] [place], [place] [address] Assigned Musculoskeletal Provider 03/20/22 08/13/22 Erica Farrell APRN BOWLING PIN REFINISHER 1700 [place] [address] Assigned Heart and Vascular Provider 04/03/22 04/16/22 Diana Desir, [facility] [address] [place] [address] Assigned MTM Pharmacist 04/07/22 [place] David [place] [address] [facility] [address] Assigned Surgical Provider 05/08/22 10/08/22 Galo Burrell MD Assigned Heart and Vascular Provider 04/17/22 06/11/22 Livan Sharif MD [address] [place] [address] [place] [address] Cardiovascular Disease 05/14/22 Livan Sharif MD [address] [place] [address] [place] [address] Assigned Heart and Vascular Provider 06/12/22 07/23/22 Catherine Cm MD [address] [place] [address] [place] [address] Cardiovascular Disease 07/21/22 Valery Veronica, PAUcheC 909 [place] [address] Physician Relay Technician Dermatology 07/21/22 Catherine Cm MD [address] [facility] S [facility] [address] [place] [id number] Assigned Heart and Vascular Provider 07/24/22 11/05/22 Johnny Murillo MD [address] [place] [address] Assigned Musculoskeletal Provider 08/14/22 10/08/22 Brea Quinn APRN BOWLING PIN REFINISHER [address] [place] [address] [id number] Nurse Practitioner Dermatology 09/21/22 Brea Quinn APRN BOWLING PIN REFINISHER [address] [place] [address] [place] [address] Assigned Surgical Provider 10/09/22 05/01/24 [place] [address] [facility] [place] [address] Assigned Musculoskeletal Provider 10/09/22 05/01/24 Livan Sharif MD [address] [place] [address] [place] [id number] Assigned Heart and Vascular Provider 11/06/22 11/12/22 Catherine Cm MD [address] [place] [address] Assigned Heart and Vascular Provider 11/13/22 05/27/23 Sydnie Martinez RN Personal Advocate & Liaison (PAL) Family Medicine 03/28/23 07/31/23 Alfonso Renteria MD [address] [facility] [address] [place] [address] Assigned Neuroscience Provider 04/02/23 09/29/24 Cheng Todd PA-C [address] [place] [address] [id number] Assigned PCP 04/30/23 07/15/23 Radha Lomeli APRN BOWLING PIN REFINISHER [address] [place], [place] [address] Assigned Heart and Vascular Provider 05/28/23 11/29/24 Jelena David OD [address] [facility] [facility] [place] [address] Ophthalmology 06/15/23 Pao Joseph, VJ Personal Advocate & Liaison (PAL) Nurse 08/01/23 11/07/23 Esha Grimm PA-C [address] [place] [phone] Assigned PCP 07/16/23 Valery Veronica PA-C [address] [place], [place] 445405 Physician Relay Technician Dermatology 09/19/23 Rey Tay MD [address] [place] [address] [phone] MD Gastroenterology 09/20/23 Rocky Zepeda DO [address] [place] [address] Physician Gastroenterology 09/20/23 Philip Dumont MD 6 [place], [place] 545675 Physician Ophthalmology 09/22/23 Meredith Carrera PA-C [address] [place] [address] [phone] Assigned Gastroenterology Provider 11/01/23 Neil Kent MD [address] [id number] MD Dermatology 11/02/23 [place] [address] [place] [facility] [place] [address] Neurological Surgery 12/26/23 Audrey Waite PA-C [address] [place] [address] Physician Relay Technician Dermatology 02/28/24 Valery Veronica PA-C 013830 [address], [place] [address] Physician Relay Technician Dermatology 04/10/24 Herminia Hatch MD [facility]5 [place], [place] [phone] Assigned Rheumatology Provider 07/02/24 [place] [address] [facility] [place] [address] Ophthalmology 08/30/24 [place] [address] [place] [address] Assigned Neuroscience Provider 09/30/24 Maru Man PA-C [address] [place] [address] Physician Relay Technician Dermatology 10/03/24 Maru Man PA-C [address] [place] [address] Physician Relay Technician Dermatology 10/22/24 Jelena David OD [facility] [facility] [place] [address] Assigned Surgical Provider 10/31/24 Fabiano Correa, BRYCE [address] [place] [address] Assigned Heart and Vascular Provider 11/30/24 documented as of this encounter
--- OUTSIDE RECORDS SUMMARY | 2024-12-31 03:18 | XMS_ITS | Encounter Summary ---
Author Organization [facility] Address [address] [place] [address] Care Team Providers Care Bulk Truck Driver Name Role Phone Lita Oseguera Unavailable Unavailable Marija Edgar APRN SECTION PLOTTER OPERATOR Primary Care Provider + Chanelle Mccann APRN CNM Unavailab le Kyara De La Fuente RN Unavailable [phone] Marija Edgar APRN SECTION PLOTTER OPERATOR Unavailable Mynor Broussard MD Unavailable [phone] Keisha Dotson MD Unavailable [phone] Mary Mejia Unavailable Unavailable Stacey Briones GOLF CADDIE Unavailable Lesley Guillermo CHW Unavailable Mary Mejia Unavailable Unavailable Lita Oseguera Unavailable Unavailable Galo Burrell MD Unavailable Unavailable Cristina Wood Unavailable Lesley Guillermo CHW Unavailable Meredith Bedoya Unavailable Unavailable Cristina Wood Unavailable Diana Desir [facility] Unavailable Ruhland, Rain Lena PA-C Unavailable Summer Lara MD Unavailable [phone] Summer Lara MD Unavailable [phone] Summer Lara MD Unavailable [phone] Tavia Wyatt MD Unavailable [phone] Johnny Muirllo MD Unavailable [phone] Erica Farrell APRN SECTION PLOTTER OPERATOR Unavailable VikasTeresita H Unavailable Tavia Wyatt MD Unavailable [phone] Diana Desir [facility] Unavailable [phone] Rich Barrett MD Unavailable [phone] Neil Kent MD Unavailable Roney Story [facility] Unavailable Erica Farrell APRN SECTION PLOTTER OPERATOR Unavailable Diana Desir [facility] Unavailable [phone] Jelena David OD Unavailable [phone] Galo Burrell MD Unavailable Unavailable Livan Sharif MD Unavailable Livan Sharif MD Unavailable Catherine Cm MD Unavailable + Valery Veronica PA-C Unavailable [phone] Catherine Cm MD Unavailable + Johnny Murillo MD Unavailable +[phone] Brea Quinn APRN SECTION PLOTTER OPERATOR Unavailable [phone] Brea Quinn STEEL WHEEL ENGRAVER SECTION PLOTTER OPERATOR Unavailable [phone] Jose Francisco Johnson MD Unavailable Livan Sharif MD Unavailable Catherine Cm MD Unavailable + Sydnie Martinez RN Unavailable Unavailable Alfonso Renteria MD Unavailable Esha Grimm PA-C Primary Care Provider Cheng Todd PA-C Unavailable Radha Lomlei APRN, CNP Unavailable Jelena David OD Unavailable Pao Joseph RN Unavailable Unavailable Esha Grimm PA-C Unavailable [phone] Valery Veronica PA-C Unavailable Rey Tay MD Unavailable Rocky Zepeda DO Unavailable Philip Dumont MD Unavailable [phone] Meredith Carrera PA-C Unavailable [phone] Neil Kent MD Unavailable Juan Pablo Emmanuel [...] (Late st Contact Info) Description 07/14/[address] [address] Rakesh Cid PA-C [address] [place] [address] Medication Refill Social History Tobacco Use Types [...] PM CDT Legal Sex Female 4:13 AM DIE TRIMMER Gender Identity Female 03/02/2021 5:45 PM CDT Sexual Orientation Straight 02/28/2020 12 :51 AM CDT COVID-19 Exposure Response Date Recorded In the last month, have you been in contact with someone who was confirmed or suspected to have Coronavirus / COVID-19? No / Unsure 06/24/2020 3:01 PM DIE TRIMMER documented as of this encounter Miscellaneous Notes * Telephone Encounter - Estephania Black RN - 07/16/2020 11:38 AM DIE TRIMMER Routing refill request to provider for review/approval because: Labs out of range: PHQ9> 4 patient was seen 3 weeks ago. Estephania Black RN Flex TRIMMER * Telephone Encounter - Brea Perry RN - 07/16/2020 11:34 AM DIE TRIMMER Routing to correct clinic. TRIMMER documented in this encounter Plan of Treatment Upcoming Encounters Date Type Department Care Team (Latest Contact Info) Description 01/02/2025 1:10 PM CDT Ancillary Procedure [address] [place] [address] Lauren Claudio PA-C [address] [place] [address] 01/17/2025 10:00 AM CDT Appointment [id number] [place] [phone] Lauren Claudio PA-C [address] [place] [address] 04/16/2025 11:00 AM CDT Virtual Visit [facility] [address] [place] [phone] Meredith Carrera PA-C [address] [place] [address] documented as of this encounter Visit Diagnoses Diagnosis Anxiety Anxiety state, unspecified documented in this encounter Additional Health Concerns Infection Onset Date Last Indicated Resolved Time Rule Out COVID-19 07/30/2020 07/30/2020 07/30/2020 7:11 PM DIE TRIMMER Rule Out COVID-19 08/30/2020 08/30/2020 08/30/2020 5:05 PM DIE TRIMMER Rule Out COVID-19 09/24/2020 09/24/2020 09/24/2020 9:24 AM CDT Rule Out COVID-19 11/05/2020 11/05/2020 11/06/2020 1:09 PM CDT Rule Out COVID-19 05/11/2021 05/11/2021 05/13/2021 10:18 AM CDT Rule Out COVID-19 07/13/2021 07/13/2021 07/14/2021 3:04 PM DIE TRIMMER Rule Out COVID-19 07/18/2021 07/18/2021 07/20/2021 1:56 PM DIE TRIMMER COVID-19 07/18/2021 07/18/2021 08/08/2021 11:3 9 PM DIE TRIMMER Rule Out COVID-19 12/18/2021 12/18/2021 12/19/2021 11:34 AM CDT Rule Out COVID-19 02/24/2022 02/24/2022 02/25/2022 1:08 PM CDT Rule Out COVID-19 04/26/2022 04/26/2022 04/26/2022 6:47 AM CDT Rule Out COVID-19 05/17/2022 05/17/2022 05/17/2022 10:20 PM DIE TRIMMER Rule Out COVID-19 06/09/2022 06/09/2022 06/09/2022 9:35 AM DIE TRIMMER COVID-19 06/09/2022 06/09/2022 06/30/2022 11:4 1 PM DIE TRIMMER Rule Out COVID-19 11/10/2022 11/10/2022 11/11/2022 [...] Total Score: 9 06/25/20 20 7:04 AM DIE TRIMMER documented as of this encounter Care Teams Bulk Truck Driver Relationship Specialty Start Date End Date Marija Edgar APRN SECTION PLOTTER OPERATOR PCP - General Nurse Practitioner 10/21/20 10/5/23 Esha Grimm PA-C [address] [place] [phone] PCP - General Family Medicine 05/04/23 Lita Oseguera Personal Advocate & Liaison (PAL) 02/28/20 03/27/23 Chanelle Mccann APRN CNM [address] [facility] [address] [place] [address] Assigned OBGYN Provider 05/02/2005/09 Kyara De La Fuente, RN Specialty Water Quality Specialist Neurology 06/04/20 03/05/21 Marija Edgar APRN SECTION PLOTTER OPERATOR Assigned PCP 06/08/20 04/29/23 Mynor Broussard MD [address] [facility] 500 [place], [place] [phone] Assigned Surgical Provider 06/01/20 11/28/21 Keisha Dotson MD [address] [place], [place] 281165 Assigned Neuroscience Provider 06/04/20 04/01/23 Mary Mejia Financial Resource Worker 08/07/20 08/21/20 Stacey Briones, GOLF CADDIE Lead Water Quality Specialist Primary Care - CC 08/11/2012/30 Lesley [...] Diana Desir, [facility] [address] [place], [place] [phone] Pharmacist Pharmacist 04/17/21 Rain Galaviz PA-C [address] [place] [address] [address] [place], [place] [phone] Physician Air Tucker Dermatology 04/28/21 Summer Lara MD [address] [place] [address] [phone] Assigned OBGYN Provider 05/10/2105/23 Summer Lara MD [address] [place] [address] [phone] Assigned OBGYN Provider 05/31/21 2 Summer Lara MD [address] [place] [address] Assigned OBGYN Provider 05/24/2105/30 Tavia Wyatt MD [address] [place], [place] [address] Dermatology 07/14/21 Johnny Murillo MD [address] [place] [address] Assigned Musculoskeletal Provider 08/30/21 03/17/22 Erica Farrell APRN SECTION PLOTTER OPERATOR [address] [facility] [address] [place], [place] [address] Nurse Practitioner Cardiovascular Disease 09/09/21 Teresita Bean, [facility] [address] [place] [phone] Pharmacist Pharmacist 09/24/21 09/29/21 Tavia Wyatt MD [address] [place], [place] 048710 Assigned Surgical Provider 11/29/21 05/07/22 [facility] [address] [place] [address] Assigned MTM Pharmacist 01/02/22 Rich Barrett MD [address] [place] [address] Physician Ophthalmology 01/21/22 Neil Kent MD 500 [place] [address] Dermatology 02/24/22 Roney Story DPM [address] [facility] [address] [place] [address] Assigned Musculoskeletal Provider 03/20/22 08/13/22 Erica Farrell APRN SECTION PLOTTER OPERATOR [address] [place] [address] Assigned Heart and Vascular Provider 04/03/22 04/16/22 Diana Desir, [facility] [address] [place], [place] 052556 Assigned MTM Pharmacist 04/07/22 Jelena David OD [address] [place] [address] Assigned Surgical Provider 05/08/22 10/08/22 Galo Burrell MD Assigned Heart and Vascular Provider 04/17/22 06/11/22 Livan Sharif MD [address] [place] [address] Cardiovascular Disease 05/14/22 Livan Sharif MD [address] [place] [address] Assigned Heart and Vascular Provider 06/12/22 07/23/22 Catherine Cm MD [address] [place] [phone] Cardiovascular Disease 07/21/22 Valery Veronica, PAUcheC [address] [place] [address] Physician Air Tucker Dermatology 07/21/22 Catherine Cm MD [address] [facility] [address] [place] [address] Assigned Heart and Vascular Provider 07/24/22 11/05/22 Johnny Murillo MD [facility] [address] [address] Assigned Musculoskeletal Provider 08/14/22 10/08/22 Brea Quinn APRN SECTION PLOTTER OPERATOR [address] [place] [address] Nurse Practitioner Dermatology 09/21/22 Brea Quinn APRN SECTION PLOTTER OPERATOR [address] [place] [address] Assigned Surgical Provider 10/09/22 05/01/24 [place] [address] RAZO [address] [place] [address] Assigned Musculoskeletal Provider 10/09/22 05/01/24 Livan Sharif MD [address] [facility] [address] [place] [address] Assigned Heart and Vascular Provider 11/06/22 11/12/22 Catherine Cm MD [address] [facility] [address] [place] [address] Assigned Heart and Vascular Provider 11/13/22 05/27/23 Sydnie Martinez RN Personal Advocate & Liaison (PAL) Family Medicine 03/28/23 07/31/23 Alfonso Renteria MD [address] [facility] [address] [place] [address] Assigned Neuroscience Provider 04/02/23 09/29/24 Cheng Todd PA-C [address] [place] [address] Assigned PCP 04/30/23 07/15/23 Radha Lomeli APRN SECTION PLOTTER OPERATOR [address] [facility] [address] [place] [address] Assigned Heart and Vascular Provider 05/28/23 11/29/24 Jelena David OD [address] [place] [address] Ophthalmology 06/15/23 Pao Joseph, VJ Personal Advocate & Liaison (PAL) Nurse 08/01/23 11/07/23 Esha Grimm PA-C [address] [place] [address] Assigned PCP 07/16/23 Valery Veronica PA-C 9 [place], [place] [address] Physician [facility] Dermatology 09/19/23 Rey Tay MD [address] [place] [address] Gastroenterology 09/20/23 Rocky Zepeda DO [address] [place] [address] Physician Gastroenterology 09/20/23 Philip Dumont MD [address] [place] [address] Physician Ophthalmology 09/22/23 Meredith Carrera PA-C [address] [place] [address] Assigned Gastroenterology Provider 11/01/23 Neil Kent MD [address] [place] [address] MD Dermatology 11/02/23 [place] [address] [address] Neurological Surgery 12/26/23 Audrey Waite PA-C [address] [place] [address] Physician [facility] Dermatology 02/28/24 Valery Veronica PA-C 554227 [address], [place] [address] Physician Air Tucker Dermatology 04/10/24 Herminia Hatch MD [facility]5 [place], [place] [address] Assigned Rheumatology Provider 07/02/24 Jelena David OD [address] [place] [address] Ophthalmology 08/30/24 [place] [address] [address] [place] [address] Assigned Neuroscience Provider 09/30/24 Maru Man PA-C [address] [place] [address] Physician [facility] Dermatology 10/03/24 Maru Man PA-C [address] [place] [address] 181320 Physician Air Tucker Dermatology 10/22/24 Jelena David OD [address] [facility] [place] [address] Assigned Surgical Provider 10/31/24 Fabiano Correa NP [address] [place] [address] Assigned Heart and Vascular Provider 11/30/24 documented as of this encounter
--- OUTSIDE RECORDS SUMMARY | 2024-12-31 03:18 | XMS_ITS ---
Author Organization [facility] Address [address] [place] [address] Care Team Providers Care Nutrition Services Assistant Name Role Phone Diana Desir Stanislav [facility] Unavailable Rain Galaviz PA-C Unavailable Tavia Wyatt MD Unavailable Erica Farrell APRN CREDIT CARD INTERVIEWER Unavailable Rich Barrett MD Unavailable [phone] Neil Kent MD Unavailable Diana Desir [facility] Unavailable [phone] Livan Sharif MD Unavailable Catherine Cm MD Unavailable + Valery VeronicaC Unavailable [phone] Brea Quinn APRN CREDIT CARD INTERVIEWER Unavailable Esha Grimm PA-C Primary Care Provider Jelena David OD Unavailable Esha Grimm PA-C Unavailable [phone] Valery Veronica PA-C Unavailable Rey Tay MD Unavailable Du[facility]y Unavailable Philip Dumont MD Unavailable Meredith Carrera PA-C Unavailable Neil Kent MD Unavailable Juan Pablo Emmanuel MD Unavailable Audrey Waite PA-C Unavailable Valery Veronica PA-C Unavailable Herminia Hatch MD Unavailable Jelena David OD Unavailable [phone] Juan Pablo Emmanuel MD Unavailable Maru Man-C Unavailable [phone] Maru Man-C Unavailable Jelena David OD Unavailable [phone] Fabiano Correa ELECTROPHYSIOLOGY TECHNICIAN Unavailable Primary Care Care Coordination Status:Closed (Closed) Start date:11/23/2024 End date:11/26/2024 Close reason:Duplication of Care Management services Overview 11/23: Defer to 11/26; Active communication within Care Team - regarding Pt's results -eo Continued Care and Services Coordination
--- OUTSIDE RECORDS SUMMARY | 2024-12-31 03:18 | XMS_ITS | Encounter Summary ---
Author Organization [facility] Address [address] [place] [address] Care Team Providers Care Mexican Food Maker Hand Name Role Phone Rakesh Cid PA-C Primary Care Provider [phone] Lita Oseguera Unavailable Unavailable Rakesh Cid PA-C Unavailable [phone] Lita Oseguera Unavailable Unavailable Marija Edgar APRN POLICE COMMISSIONER Primary Care Provider + Chanelle Mccann APRN CNM Unavailab le Lesley Guillermo Unavailable [phone] Kyara De La Fuente RN Unavailable [phone] Marija Edgar APRN POLICE COMMISSIONER Unavailable Mynor Broussard MD Unavailable [phone] Keisha Dotson MD Unavailable Mary Mejia Unavailable Unavailable Stacey Briones [employer] Unavailable [phone] Lesley Guillermo Unavailable [phone] Mary Mejia Unavailable Unavailable Lita Oseguera Unavailable Unavailable Galo Burrell MD Unavailable Unavailable Cristina Wood Unavailable Lesley Guillermo Unavailable Meredith Bedoya Unavailable Unavailable Cristina Wood Unavailable Diana Desir [facility] Unavailable [phone] Rain Galaviz PA-C Unavailable Summer Lara MD Unavailable [phone] Summer Lara MD Unavailable [phone] Summer Lara MD Unavailable [phone] Tavia Wyatt MD Unavailable [phone] Johnny Murillo MD Unavailable [phone] Erica Farrell APRN POLICE COMMISSIONER Unavailable Teresita Bean [facility] Unavailable Tavia Wyatt MD Unavailable [phone] Diana Desir [facility] Unavailable [phone] Rich Barrett MD Unavailable Neil [place] MD Unavailable Roney Story DPM Unavailable Erica aFrrell APRN POLICE COMMISSIONER Unavailable Diana Desir [facility] Unavailable [phone] Jelena David OD Unavailable Galo Burrell MD Unavailable Unavailable Livan Sharif MD Unavailable Livan Sharif MD Unavailable + Catherine Cm MD Unavailable + Valery Veronica PA-C Unavailable [phone] Catherine Cm MD Unavailable + Johnny Murillo MD Unavailable [phone] Brea Quinn APRN POLICE COMMISSIONER Unavailable [phone] Brea Quinn FLAT SPRING ASSEMBLER POLICE COMMISSIONER Unavailable [phone] Jose Francisco Johnson MD Unavailable Livan Sharif MD Unavailable Catherine Cm MD Unavailable + Sydnie Martinez RN Unavailable Unavailable Alofnso Renteria MD Unavailable [phone] Esha Grimm PA-C Primary Care Provider Cheng Todd PA-C Unavailable [phone] Radha Lomeli FLAT SPRING ASSEMBLER POLICE COMMISSIONER Unavailable Jelena David OD Unavailable Pao Joseph RN Unavailable Unavailable Esha Grimm PA-C Unavailable [phone] Valery Veronica PA-C Unavailable Rey Tay MD Unavailable Rocky Zepeda DO Unavailable Philip Dumont MD Unavailable Meredith Carrera PA-C Unavailable Neil [place] MD Unavailable Juan Pablo Emmanuel MD Unavailable [phone] Audrey Waite PA-C Unavailable [phone] Valery Veronica PA-C Unavailable Herminia Hatch MD Unavailable Jelena David OD Unavailable Juan Pablo Emmanuel MD Unavailable Maru Man PA-C Unavailable Maru Man PA-C Unavailable [phone] Jelena David OD Unavailable Madeline Fabiano Gabo MRI TECH Unavailable Encounter Details Date Type Department Care Team (Late st Contact Info) Description 04/28/2020 MyC Medical Advice [facility] [id number] [place] [address] [phone] Rakesh Cid PA-C [address] [place] [address] Social History Tobacco Use Types Packs/Day Years [...] CDT Legal Sex Female 4:13 AM METAL WIRE TECHNICIAN Gender Identity Female 03/02/2021 5:45 PM [...] PM CDT Ancillary Procedure [facility] [address] [place] [address] [phone] Lauren Claudio PA-C [address] [place], [place] [phone] 01/17/2025 10:00 AM CDT Appointment [facility] Respiratory [address] [place] [address] Lauren Claudio PA-C [address] [place] [address] 04/16/2025 11:00 AM CDT Virtual Visit [facility] [address] 4th [place] [phone] Meredith Carrera PA-C [address] [place] [address] documented as of this encounter Visit Diagnoses Not on filedocumented in this encounter Additional Health Concerns Infection Onset Date Last Indicated Resolved Time Rule Out COVID-19 07/30/2020 07/30/2020 07/30/2020 7:11 PM METAL WIRE TECHNICIAN Rule Out COVID-19 08/30/2020 08/30/2020 08/30/2020 5:05 PM METAL WIRE TECHNICIAN Rule Out COVID-19 09/24/2020 09/24/2020 09/24/2020 9:24 AM CDT Rule Out COVID-19 11/05/2020 11/05/2020 11/06/2020 1:09 PM CDT Rule Out COVID-19 05/11/2021 05/11/2021 05/13/2021 10:18 AM CDT Rule Out COVID-19 07/13/2021 07/13/2021 07/14/2021 3:04 PM METAL WIRE TECHNICIAN Rule Out COVID-19 07/18/2021 07/18/2021 07/20/2021 1:56 PM METAL WIRE TECHNICIAN COVID-19 07/18/2021 07/18/2021 08/08/2021 11:3 9 PM METAL WIRE TECHNICIAN Rule Out COVID-19 12/18/2021 12/18/2021 12/19/2021 11:34 AM CDT Rule Out COVID-19 02/24/2022 02/24/2022 02/25/2022 1:08 PM CDT Rule Out COVID-19 04/26/2022 04/26/2022 04/26/2022 6:47 AM CDT Rule Out COVID-19 05/17/2022 05/17/2022 05/17/2022 10:20 PM METAL WIRE TECHNICIAN Rule Out COVID-19 06/09/2022 06/09/2022 06/09/2022 9:35 AM METAL WIRE TECHNICIAN COVID-19 06/09/2022 06/09/2022 06/30/2022 11:4 1 PM METAL WIRE TECHNICIAN Rule Out COVID-19 11/10/2022 11/10/2022 11/11/2022 [...] documented as of this encounter Care Teams Mexican Food Maker Hand Relationship Specialty Start Date End Date Rakesh Cid PA-C PCP - General Physician Frog Or Oyster Farmworker - Medical 05/14/19 04/29/20 Marija Edgar APRN POLICE COMMISSIONER [address] [place], [place] [phone] PCP - General Nurse Practitioner 04/30/20 04/14/23 Esha Grimm PA-C [address] [place] [address] PCP - General Family Medicine 05/04/23 Lita Oseguera Personal Advocate & Liaison (PAL) 02/28/20 03/27/23 Rakesh Cid PA-C [address] [place] [address] Assigned PCP 03/02/20 06/07/20 Lita Oseguera Personal Advocate & Liaison (PAL) 04/07/20 04/29/20 Chanelle Mccann APRN CNM [address] [place] [address] 200 [place] [address] Assigned OBGYN Provider 05/02/2005/09 Lesley Guillermo W Community Health Worker 05/30/2005/12 Kyara De La Fuente, RN Specialty Editor Continuity And Script Neurology 06/04/20 03/05/21 Marija Edgar APRN POLICE COMMISSIONER [address] [place] [address] Assigned PCP 06/08/20 04/29/23 Mynor Broussard MD 6363 [facility] 500 [place] [address] Assigned Surgical Provider 06/01/20 11/28/21 Keisha Dotson MD 9 [place] [address] Assigned Neuroscience Provider 06/04/20 04/01/23 Mary Mejia Financial Resource Worker 08/07/20 08/21/20 AnselmoStacey, [facility] Lead Editor Continuity And Script Primary Care - CC 08/11/2012/30 Lesley Guillermo, [facility] Community Health Worker 08/11/2010/01 Aditi Mejiandra Financial Resource Worker 09/02/20 10/06/20 Lita Oseguera Personal Advocate & Liaison (PAL) Family Medicine 09/10/20 09/21/20 Galo Burrell MD Assigned Heart and Vascular Provider 10/05/20 04/02/22 Cristina Wood Financial Resource Worker 10/07/20 10/14/20 Lesley Guillermo, [facility] Community Health Worker 10/23/2012/30 Meredith Bedoya Financial Resource Worker 10/23/20 11/23/20 Cristina Wood Financial Resource Worker 02/09/21 02/09/21 Diana Desir, [facility] [address] [place] [address] [phone] Pharmacist Pharmacist 04/17/21 Rain Galaviz PA-C [address] [place] [address] [address] [place], [place] [phone] Physician Frog Or Oyster Farmworker Dermatology 04/28/21 Summer Lara MD [address] [place] [address] Assigned OBGYN Provider 05/10/2105/23 Summer Lara MD [address] [place] [address] Assigned OBGYN Provider 05/31/21 2 Summer Lara MD [address] [place] [address] Assigned OBGYN Provider 05/24/2105/30 Tavia Wyatt MD [address] [place] [address] Dermatology 07/14/21 Johnny Murillo MD [facility] [address] [facility] [address] [place] [address] Assigned Musculoskeletal Provider 08/30/21 03/17/22 Erica Farrell APRN POLICE COMMISSIONER 6405 [facility] [address] [place] [address] Nurse Practitioner Cardiovascular Disease 09/09/21 Teresita Bean [facility] [address] [place], [place] [phone] Pharmacist Pharmacist 09/24/21 09/29/21 Tavia Wyatt MD [address] [place] [address] Assigned Surgical Provider 11/29/21 05/07/22 [facility] [place] [address] Assigned MTM Pharmacist 01/02/22 Rich Barrett MD [facility] [place] [address] Physician Ophthalmology 01/21/22 Neil [place] MD 500 [place] [address] Dermatology 02/24/22 Roney Story DPM 10619 [facility] [address] [place], [place] 979677 Assigned Musculoskeletal Provider 03/20/22 08/13/22 Erica Farrell APRN POLICE COMMISSIONER 1700 [place] [address] Assigned Heart and Vascular Provider 04/03/22 04/16/22 [facility] [address] [place] [address] Assigned MTM Pharmacist 04/07/22 Jelena David OD [address] [place] [address] Assigned Surgical Provider 05/08/22 10/08/22 Galo Burrell MD Assigned Heart and Vascular Provider 04/17/22 06/11/22 Livan Sharif MD [address] [place] [id number] Cardiovascular Disease 05/14/22 Livan Sharif MD [address] [place] [address] Assigned Heart and Vascular Provider 06/12/22 07/23/22 Catherine Cm MD [address] [place] [address] Cardiovascular Disease 07/21/22 Valery Veronica PA-C 909 [place] [address] Physician Frog Or Oyster Farmworker Dermatology 07/21/22 Catherine Cm MD [address] [place] 044175 Assigned Heart and Vascular Provider 07/24/22 11/05/22 Johnny Murillo MD [facility] 168644 Assigned Musculoskeletal Provider 08/14/22 10/08/22 Brea Quinn APRN POLICE COMMISSIONER [address] [place] [address] 827905 Nurse Practitioner Dermatology 09/21/22 Brea Quinn APRN POLICE COMMISSIONER [address] [place] [address] [place] 414332 Assigned Surgical Provider 10/09/22 05/01/24 [place] [address] [facility] [place] [address] Assigned Musculoskeletal Provider 10/09/22 05/01/24 Livan Sharif MD [address] [place] 944695 Assigned Heart and Vascular Provider 11/06/22 11/12/22 Catherine Cm MD [address] [place] [address] Assigned Heart and Vascular Provider 11/13/22 05/27/23 Sydnie Martinez RN Personal Advocate & Liaison (PAL) Family Medicine 03/28/23 07/31/23 Alfonso Renteria MD 5775 [facility] 200 [place] [address] Assigned Neuroscience Provider 04/02/23 09/29/24 Cheng Todd PA-C [address] [place] [address] [phone] Assigned PCP 04/30/23 07/15/23 Radha Lomeli APRN POLICE COMMISSIONER [address] [place] [address] Assigned Heart and Vascular Provider 05/28/23 11/29/24 Jelena David OD [address] [place] [address] Ophthalmology 06/15/23 Pao Joseph, VJ Personal Advocate & Liaison (PAL) Nurse 08/01/23 11/07/23 Esha Grimm PA-C [address] [place] [phone] Assigned PCP 07/16/23 Valery Veronica PA-C [address] [place] [address] Physician Frog Or Oyster Farmworker Dermatology 09/19/23 Rey Tay MD [address] [place] [address] MD Gastroenterology 09/20/23 Rocky Zepeda DO [address] [place] [address] Physician Gastroenterology 09/20/23 Philip Dumont MD [address] [place] [address] Physician Ophthalmology 09/22/23 Meredith Carrera PA-C [address] [place] [address] Assigned Gastroenterology Provider 11/01/23 Neil [place] MD [address] [place] [address] Dermatology 11/02/23 [place] [address] [address] [facility] [place] [address] Neurological Surgery 12/26/23 Audrey Waite PA-C [address] [place] [address] Physician Frog Or Oyster Farmworker Dermatology 02/28/24 Valery Veronica PA-C 636790 [address] [address] Physician Frog Or Oyster Farmworker Dermatology 04/10/24 Herminia Hatch MD [facility]5 [place], [place] 95340125 Assigned Rheumatology Provider 07/02/24 Jelena David OD [address] [place] [address] Ophthalmology 08/30/24 [place] [address] [place] [address] Assigned Neuroscience Provider 09/30/24 Maru Man PA-C [address] [place] [address] Physician Frog Or Oyster Farmworker Dermatology 10/03/24 Mrau Man PA-C [address] [place] [address] Physician Frog Or Oyster Farmworker Dermatology 10/22/24 Jelena David, SONJA [address] [place] [address] Assigned Surgical Provider 10/31/24 Fabiano Correa, BRYCE [address] [place] [place] [address] Assigned Heart and Vascular Provider 11/30/24 documented as of this encounter
--- OUTSIDE RECORDS SUMMARY | 2024-12-31 03:18 | XMS_ITS | Encounter Summary ---
Author Organization [facility] Address [address] [place] [address] Care Team Providers Care Java Sybase Developer Name Role Phone Diana Desir [facility] Unavailable Rain Galaviz PA-C Unavailable [phone] Tavia Wyatt MD Unavailable [phone] Erica Farrell APRN PRESCHOOL SUBSTITUTE TEACHER Unavailable Rich Barrett MD Unavailable [phone] Neil Kent MD Unavailable Diana Desir [facility] Unavailable [phone] Livan Sharif MD Unavailable Catherine Cm MD Unavailable + Valery Veronica PA-C Unavailable Brea Quinn AERIAL ERECTOR PRESCHOOL SUBSTITUTE TEACHER Unavailable Brea Quinn AERIAL ERECTOR PRESCHOOL SUBSTITUTE TEACHER Unavailable Jose Francisco Johnson MD Unavailable Alfonso Renteria MD Unavailable [phone] Esha Grimm PA-C Primary Care Provider [phone] Radha Lomeli APRN PRESCHOOL SUBSTITUTE TEACHER Unavailable Jelena Davdi OD Unavailable Pao Joseph RN Unavailable Unavailable AlfaJesusEsha M PA-C Unavailable [phone] Valery Veronica PA-C Unavailable Rey Tay MD Unavailable Rocky Zepeda DO Unavailable Philip Dumont MD Unavailable [phone] Meredith Carrera PA-C Unavailable Neil Kent MD Unavailable Juan Pablo Emmanuel MD Unavailable Audrey Waite PA-C Unavailable [phone] Valery Veronica PA-C Unavailable Herimnia Hatch MD Unavailable Jelena David OD Unavailable Juan Pablo Emmanuel MD Unavailable Maru Man PA-C Unavailable Maru Man PA-C Unavailable Jelena David OD Unavailable Fabiano Correa NP Unavailable [phone] Encounter Details Date Type Department Care Team (Late st Contact Info) Description 10/24/2023 [facility] Medical Advice [facility] Gastroenterology Clinic [address] [place] [address] Kenneth Denson Social History Tobacco [...] Answer Date Recorded PHQ-2 Score 0 10/25/2023 [facility] [place] of Occupat ional Health - Occupational Stress [...] exercise at this level? 30 min 03/10/2023 Prescott Depression Scale Answer Date Recorded [place] Depression Score 5 01/14/2021 Last EPDS Self [...] CDT Legal Sex Female 4:13 AM SUPERVISOR PIPELINES Gender Identity Female 03/02/2021 5:45 PM CDT Sexual Orientation Straight 02/28/2020 12 :51 AM CDT documented as of this encounter Plan of Treatment Upcoming Encounters Date Type Department Care Team (Latest Contact Info) Description 01/02/2025 1:10 PM CDT Ancillary Procedure [facility] [address] [place] [phone] Lauren Claudio PA-C [address] [place] [address] 01/17/2025 10:00 AM CDT Appointment [facility] Respiratory [address] [place] [phone] Lauren Claudio PA-C [address] [place] [address] 04/16/2025 11:00 AM CDT Virtual Visit [facility] Gastroenterology Clinic [address] 4th [place] [phone] Meredith Carrera PA-C [address] [place] [address] 070575 documented as of this encounter Visit Diagnoses [...] Score: 4 06/20/20 23 8:40 AM SUPERVISOR PIPELINES documented as of this encounter Care Teams Java Sybase Developer Relationship Specialty Start Date End Date Esha Grimm PA-C [address] [place] [address] PCP - General Family Medicine 05/04/23 Diana Desir [facility] [place] [address] Pharmacist Pharmacist 04/17/21 Rain Galaviz PA-C [address] [place] [address] [address] [place] [address] Physician Jackscrew Worker Dermatology 04/28/21 Tavia Wyatt MD [address] [place] [address] [address] [place] [address] Dermatology 07/14/21 Erica Farrell APRN PRESCHOOL SUBSTITUTE TEACHER [address] [place] 45[address]25 Nurse Practitioner Cardiovascular Disease 09/09/21 Rich Barrett MD [address] [place] [address] Physician Ophthalmology 01/21/22 Neil [place] MD 500 [place] [address] Dermatology 02/24/22 [facility] 3033 [place] [address] Assigned MTM Pharmacist 04/07/22 Livan Sharif MD [address] [place] [address] Cardiovascular Disease 05/14/22 Catherine Cm MD 6408 [facility] [address] [place] [address] Cardiovascular Disease 07/21/22 Valery Veronica PA-C 909 [place] [address] Physician Jackscrew Worker Dermatology 07/21/22 Brea Quinn APRN PRESCHOOL SUBSTITUTE TEACHER 500 [place] [address] Nurse Practitioner Dermatology 09/21/22 Brea Quinn APRN PRESCHOOL SUBSTITUTE TEACHER 6401 [place] [address] Assigned Surgical Provider 10/09/22 05/01/24 [place] [address] [address] [facility] 300 [place] [address] Assigned Musculoskeletal Provider 10/09/22 05/01/24 Alfonso Renteria MD 5775 [facility] 200 [place], [place] 666436 Assigned Neuroscience Provider 04/02/23 09/29/24 Radha Lomeli APRN PRESCHOOL SUBSTITUTE TEACHER 6405 [facility] [address] [place] [address] Assigned Heart and Vascular Provider 05/28/23 11/29/24 Jelena David OD [address] [place] [address] Ophthalmology 06/15/23 Pao Joseph, RN Personal Advocate & Liaison (PAL) Nurse 08/01/23 11/07/23 Esha Grimm PA-C [address] [place] [phone] Assigned PCP 07/16/23 Valery Veronica PA-C [address] [place] [address] 540975 Physician Jackscrew Worker Dermatology 09/19/23 Rey Tay MD [address] [place] [address] 635625 MD Gastroenterology 09/20/23 Rocky Zepeda DO [address] [place] [address] 233455 Physician Gastroenterology 09/20/23 Philip Dumont MD [address] [place] [address] 208045 Physician Ophthalmology 09/22/23 Meredith Carrera PA-C [address] [place] [address] 203625 Assigned Gastroenterology Provider 11/01/23 Neil [place] MD [address] [place] [address] Dermatology 11/02/23 [place] [address] [place] [address] Neurological Surgery 12/26/23 Audrey Waite PA-C 500 [place] [address] Physician Jackscrew Worker Dermatology 02/28/24 Valery Veronica PA-C 149770 [facility] [place] [address] Physician Jackscrew Worker Dermatology 04/10/24 Herminia Hatch MD [address] [place] [address] Assigned Rheumatology Provider 07/02/24 Jelena David OD [address] [place] [address] [place] [address] Ophthalmology 08/30/24 [place] [address] [place] [address] Assigned Neuroscience Provider 09/30/24 Maru Man PA-C [address] [place] [address] Physician Jackscrew Worker Dermatology 10/03/24 Maru Man PA-C [address] [place] [address] Physician Jackscrew Worker Dermatology 10/22/24 Jelena David OD [address] [place] [address] [place] [address] Assigned Surgical Provider 10/31/24 Fabiano Correa NP [address] [facility] [place] [address] Assigned Heart and Vascular Provider 11/30/24 documented as of this encounter
--- OUTSIDE RECORDS SUMMARY | 2024-12-31 03:18 | XMS_ITS | Encounter Summary ---
Author Organization [facility] Address [address] [place] [address] Care Team Providers Care Executive Vice President Business Development Name Role Phone Lita Oseguera Unavailable Unavailable Rakesh Cid PA-C Unavailable [phone] Marija Edgar APRN LOADING UNIT OPERATOR SEATING Primary Care Provider + Chanelle Mccann APRN CN Unavailab le Lesley Guillermo CHW Unavailable [phone] Kyara De La Fuente RN Unavailable [phone] Marija Edgar APRN [facility] Unavailable [phone] Mynor Broussard MD Unavailable Kesiha Dotson MD Unavailable Mary Mejia Unavailable Unavailable Stacey Briones RETAIL PERFORMANCE SPECIALIST Unavailable [phone] Lesley Guillermo CHW Unavailable [phone] Mary Mejia Unavailable Unavailable Lita Oseguera Unavailable Unavailable Galo Burrell MD Unavailable Unavailable Cristina Wood Unavailable Lesley Guillermo CHW Unavailable [phone] Meredith Bedoya Unavailable Unavailable Cristina Wood Unavailable Diana Desir [facility] Unavailable [phone] Rain Galaviz PA-C Unavailable Summer Lara MD Unavailable Summer Lara MD Unavailable [phone] Summer Lara MD Unavailable [phone] Tavia Wyatt MD Unavailable [phone] Johnny Murillo MD Unavailable [phone] Erica Farrell APRN LOADING UNIT OPERATOR SEATING Unavailable Teresita Bean [facility] Unavailable Tavia Wyatt MD Unavailable [phone] Diana Desir [facility] Unavailable [phone] Rich Barrett MD Unavailable Neil Kent MD Unavailable Roney StoryM Unavailable Erica Farrell APRN LOADING UNIT OPERATOR SEATING Unavailable + Diana Desir [facility] Unavailable [phone] Jelena David OD Unavailable Galo Burrell MD Unavailable Unavailable Livan Sharif MD Unavailable Livan Sharif MD Unavailable + Catherine Cm MD Unavailable + Valery Veronica PA-C Unavailable [phone] Catherine Cm MD Unavailable + Johnny Murillo MD Unavailable [phone] Brea Quinn APRN LOADING UNIT OPERATOR SEATING Unavailable [phone] [place], Brea P MOTOR VEHICLE INSPECTOR LOADING UNIT OPERATOR SEATING Unavailable [phone] Jose Francisco Johnson MD Unavailable Livan Sharif MD Unavailable Catherine Cm MD Unavailable + Sydnie Martinez RN Unavailable Unavailable Alfonso Renteria MD Unavailable Esha Grimm PA-C Primary Care Provider Cheng Todd PA-C Unavailable Armani Radha Sia MOTOR VEHICLE INSPECTOR LOADING UNIT OPERATOR SEATING Unavailable [phone] Jelena David OD Unavailable [phone] Pao Joseph RN Unavailable Unavailable Esha Grimm PA-C Unavailable [phone] Valery Veronica PA-C Unavailable Rey Tay MD Unavailable Rocky Zepeda DO Unavailable Philip Dumont MD Unavailable [phone] Meredith Carrera PA-C Unavailable [phone] Neil Kent MD Unavailable Juan Pablo Emmanuel MD Unavailable Audrey Waite PA-C Unavailable Valery Veronica PA-C Unavailable Herminia Hatch MD Unavailable Jelena David OD Unavailable [phone] Juan Pablo Emmanuel MD Unavailable Maru Man PA-C Unavailable [phone] Maru Man PA-C Unavailable [phone] Jelena David OD Unavailable Fabiano Correa ROPER OPERATOR Unavailable Encounter Details Date Type Department Care Team (Late st Contact Info) Description 06/05/2020 MyC Medical Advice [address] [phone] Marija Edgar APRN CNP [address] [place] [address] Social History Tobacco Use Types Packs/Day [...] PM CDT Legal Sex Female 4:13 AM FORENSIC TOXICOLOGIST Gender Identity Female 03/02/2021 5:45 PM CDT Sexual Orientation Straight 02/28/2020 12 :51 AM CDT COVID-19 Exposure Response Date Recorded In the last month, have you been in contact with someone who was confirmed or suspected to have Coronavirus / COVID-19? No / Unsure 06/04/2020 10:30 AM FORENSIC TOXICOLOGIST documented as of this encounter Miscellaneous Notes * Telephone Encounter - Marija Edgar APRN CNP - 06/09/2020 9:38 AM FORENSIC TOXICOLOGIST Those referrals have been placed. The mental health attempted call but patient did not answer. Please have patient check voicemail's or await one further follow-up call. They will call her to set up Holter monitor. Thank you Marija Edgar APRN CNP on 06/09/2020 at 9:40 AM NSIC TOXICOLOGIST documented in this encounter Plan of Treatment Upcoming Encounters Date Type Department Care Team (Latest Contact Info) Description 01/02/2025 1:10 PM CDT Ancillary Procedure [address] [phone] Lauren Claudio PA-C [address] [place] [address] 01/17/2025 10:00 AM CDT Appointment [facility] [address] [place] [phone] Lauren Claudio PA-C [address] [place] [address] 04/16/2025 11:00 AM CDT Virtual Visit [facility] [address] [phone] Meredith Carrera PA-C [address] [place] [address] documented as of this encounter Visit Diagnoses Not on filedocumented in this encounter Additional Health Concerns Infection Onset Date Last Indicated Resolved Time Rule Out COVID-19 07/30/2020 07/30/2020 07/30/2020 7:11 PM FORENSIC TOXICOLOGIST Rule Out COVID-19 08/30/2020 08/30/2020 08/30/2020 5:05 PM FORENSIC TOXICOLOGIST Rule Out COVID-19 09/24/2020 09/24/2020 09/24/2020 9:24 AM CDT Rule Out COVID-19 11/05/2020 11/05/2020 11/06/2020 1:09 PM CDT Rule Out COVID-19 05/11/2021 05/11/2021 05/13/2021 10:18 AM CDT Rule Out COVID-19 07/13/2021 07/13/2021 07/14/2021 3:04 PM FORENSIC TOXICOLOGIST Rule Out COVID-19 07/18/2021 07/18/2021 07/20/2021 1:56 PM FORENSIC TOXICOLOGIST COVID-19 07/18/2021 07/18/2021 08/08/2021 11:3 9 PM FORENSIC TOXICOLOGIST Rule Out COVID-19 12/18/2021 12/18/2021 12/19/2021 11:34 AM CDT Rule Out COVID-19 02/24/2022 02/24/2022 02/25/2022 1:08 PM CDT Rule Out COVID-19 04/26/2022 04/26/2022 04/26/2022 6:47 AM CDT Rule Out COVID-19 05/17/2022 05/17/2022 05/17/2022 10:20 PM FORENSIC TOXICOLOGIST Rule Out COVID-19 06/09/2022 06/09/2022 06/09/2022 9:35 AM FORENSIC TOXICOLOGIST COVID-19 06/09/2022 06/09/2022 06/30/2022 11:4 1 PM FORENSIC TOXICOLOGIST Rule Out COVID-19 11/10/2022 11/10/2022 11/11/2022 12:17 [...] Depression Total Score: 9 06/04/20 10:35 AM FORENSIC TOXICOLOGIST documented as of this encounter Care Teams Executive Vice President Business Development Relationship Specialty Start Date End Date Marija Edgar APRN LOADING UNIT OPERATOR SEATING [address] [place] [place] [address] PCP - General Nurse Practitioner 04/30/20 04/14/23 Esha Grimm PA-C [address] [place] [phone] PCP - General Family Medicine 05/04/23 Lita Oseguera Personal Advocate & Liaison (PAL) 02/28/20 03/27/23 Rakesh Cid PA-C [address] [place] [address] Assigned PCP 03/02/20 06/07/20 Chanelle Mccann APRN CNAdam [address] [facility] [address] [place] [address] Assigned OBGYN Provider 05/02/2005/09 Lesley Guillermo, CHW Community Health Worker 05/30/2005/12 Kyara De La Fuente, RN Specialty Freight Shipping Agent Neurology 06/04/20 03/05/21 Marija Edgar APRN LOADING UNIT OPERATOR SEATING [address] [place] [address] Assigned PCP 06/08/20 04/29/23 Mynor Broussard MD [address] [facility] [address] [place], [place] [id number] Assigned Surgical Provider 06/01/20 11/28/21 Keisha Dotson MD [address] [place] [address] Assigned Neuroscience Provider 06/04/20 04/01/23 Mary Mejia Financial Resource Worker 08/07/20 08/21/20 Stacey Briones, [facility] Lead Freight Shipping Agent Primary Care - CC 08/11/2012/30 Lesley Guillermo, [facility] Community Health Worker 08/11/2010/01 Mary Mejia Financial Resource Worker 09/02/20 10/06/20 Lita Oseguera Personal Advocate & Liaison (PAL) Family Medicine 09/10/20 09/21/20 Galo Burrell MD Assigned Heart and Vascular Provider 10/05/20 04/02/22 Cristina Wood Financial Resource Worker 10/07/20 10/14/20 Lesley Guillermo, [facility] Community Health Worker 10/23/2012/30 Meredith Bedoya Financial Resource Worker 10/23/20 11/23/20 Cristina Wood Financial Resource Worker 02/09/21 02/09/21 Diana Desir, [facility] [address] [place], [place] [address] Pharmacist Pharmacist 04/17/21 Rain Galaviz PA-C [address] [place] [address] [address] [place] [place], [place] [phone] Physician Pulmonary Fellow Dermatology 04/28/21 Summer Lara MD [address] [place] [address] Assigned OBGYN Provider 05/10/2105/23 Summer Lara MD [address] [place] [address] Assigned OBGYN Provider 05/31/21 2 Summer Lara MD [address] [place] [address] Assigned OBGYN Provider 05/24/2105/30 Tavia Wyatt MD [address] [place] [address] Dermatology 07/14/21 Johnny Murillo MD [address] [place] [address] Assigned Musculoskeletal Provider 08/30/21 03/17/22 Erica Farrell APRN LOADING UNIT OPERATOR SEATING [address] [facility] [place] [address] [place] [address] Nurse Practitioner Cardiovascular Disease 09/09/21 Teresita Bean [facility] [address] [place] [address] Pharmacist Pharmacist 09/24/21 09/29/21 Tavia Wyatt MD [address] [place] [address] Assigned Surgical Provider 11/29/21 05/07/22 Diana Desir, [facility] [address] [place] [address] Assigned MTM Pharmacist 01/02/22 Rich Barrett MD [address] [place] [address] Physician Ophthalmology 01/21/22 Neil Kent MD [address] [place] [address] Dermatology 02/24/22 Roney Story DPM [address] [facility] [address] [place] [address] Assigned Musculoskeletal Provider 03/20/22 08/13/22 Erica Farrell APRN LOADING UNIT OPERATOR SEATING [address] [place] [address] Assigned Heart and Vascular Provider 04/03/22 04/16/22 [facility] [address] [place] [address] Assigned MTM Pharmacist 04/07/22 Jelena David OD [address] [facility] [place] [address] Assigned Surgical Provider 05/08/22 10/08/22 Galo Burrell MD Assigned Heart and Vascular Provider 04/17/22 06/11/22 Livan Sharif MD [address] [place] [id number] Cardiovascular Disease 05/14/22 Livan Sharif MD [address] [place] [address] Assigned Heart and Vascular Provider 06/12/22 07/23/22 Catherine Cm MD [address] [place] [address] Cardiovascular Disease 07/21/22 Valery Veronica, PAUcheC [address] [place] [address] 808325 Physician Pulmonary Fellow Dermatology 07/21/22 Catherine Cm MD [address] [place] [address] Assigned Heart and Vascular Provider 07/24/22 11/05/22 Johnny Murillo MD [address] [place] [address] Assigned Musculoskeletal Provider 08/14/22 10/08/22 Brea Quinn APRN LOADING UNIT OPERATOR SEATING [address] [place] [address] [id number] Nurse Practitioner Dermatology 09/21/22 Brea Quinn APRN LOADING UNIT OPERATOR SEATING [address] [place] [address] Assigned Surgical Provider 10/09/22 05/01/24 [place] [address] RAZO [address] [place] [address] Assigned Musculoskeletal Provider 10/09/22 05/01/24 Livan Sharif MD [address] [place] [address] Assigned Heart and Vascular Provider 11/06/22 11/12/22 Catherine Cm MD [address] [place] [address] Assigned Heart and Vascular Provider 11/13/22 05/27/23 Sydnie Martinez RN Personal Advocate & Liaison (PAL) Family Medicine 03/28/23 07/31/23 Alfonso Renteria MD [address] [facility] [address] [place] [address] Assigned Neuroscience Provider 04/02/23 09/29/24 Cheng Todd PA-C [address] [place] [address] Assigned PCP 04/30/23 07/15/23 Radha Lomeli APRN LOADING UNIT OPERATOR SEATING [address] [place] [address] Assigned Heart and Vascular Provider 05/28/23 11/29/24 Jelena David OD [address] [facility] [place] [address] Ophthalmology 06/15/23 Pao Joseph, VJ Personal Advocate & Liaison (PAL) Nurse 08/01/23 11/07/23 Esha Grimm PA-C [address] [place] [phone] Assigned PCP 07/16/23 Valery Veronica PA-C [address] [place] [address] Physician Pulmonary Fellow Dermatology 09/19/23 Rey Tay MD [address] [place] [address] MD Gastroenterology 09/20/23 Rocky Zepeda DO [address] [place] [address] Physician Gastroenterology 09/20/23 Philip Dumont MD [address] [place] [address] Physician Ophthalmology 09/22/23 Meredith Carrera PA-C [address] [place] [address] Assigned Gastroenterology Provider 11/01/23 Neil [place] MD [address] [address] Dermatology 11/02/23 [place] [address] [place] [address] [address] Neurological Surgery 12/26/23 Audrey Waite PA-C [address] [place] [address] 379005 Physician Pulmonary Fellow Dermatology 02/28/24 Valery Veronica PA-C 153983 [address] [place] [address] Physician Pulmonary Fellow Dermatology 04/10/24 Herminia Hatch MD [facility] [place], [place] [address] Assigned Rheumatology Provider 07/02/24 Jelena David OD [address] [facility] [place] [address] Ophthalmology 08/30/24 [place] [address] [place] [address] Assigned Neuroscience Provider 09/30/24 Maru Man PA-C [address] [place] [address] Physician Pulmonary Fellow Dermatology 10/03/24 Maru Man PA-C [address] [place] [address] Physician Pulmonary Fellow Dermatology 10/22/24 Jelena David OD [address] [facility] [place] [address] Assigned Surgical Provider 10/31/24 Fabiano Correa NP [address] [place] [place] 3397[address] Assigned Heart and Vascular Provider 11/30/24 documented as of this encounter
--- OUTSIDE RECORDS SUMMARY | 2024-12-31 03:18 | XMS_ITS | Encounter Summary ---
Author Organization [facility] Address [address] [place] [address] Care Team Providers Care Glaze Handler Name Role Phone Lita Oseguera Unavailable Unavailable Rakesh Cid PA-C Unavailable [phone] Marija Edgar APRN ACOUSTICAL TILE DRILL PRESS OPERATOR Primary Care Provider + Chanelle Mccann APRN CN Unavailab le Lesley Guillermo CHW Unavailable [phone] Kyara De La Fuente RN Unavailable [phone] Marija Edgar APRN [facility] Unavailable [phone] Mynor Broussard MD Unavailable [phone] Keisha Dotson MD Unavailable Mary Mejia Unavailable Unavailable Stacey Briones MD SENIOR RESEARCH SCIENTIST Unavailable Lesley Guillermo CHW Unavailable [phone] Mary Mejia Unavailable Unavailable Lita Oseguera Unavailable Unavailable Galo Burrell MD Unavailable Unavailable Cristina Wood Unavailable Lesley Guillermo CHW Unavailable [phone] Meredith Bedoya Unavailable Unavailable Cristina Wood Unavailable Diana Desir [facility] Unavailable [phone] Rain Galaviz PA-C Unavailable Summer Lara MD Unavailable [phone] Summer Lara MD Unavailable [phone] Summer Lara MD Unavailable [phone] Tavia Wyatt MD Unavailable [phone] Johnny Murillo MD Unavailable [phone] Erica Farrell APRN ACOUSTICAL TILE DRILL PRESS OPERATOR Unavailable Teresita Bean [facility] Unavailable Tavia Wyatt MD Unavailable [phone] Diana Desir [facility] Unavailable [phone] Rich Barrett MD Unavailable Neil Kent MD Unavailable Roney StoryM Unavailable Erica Farrell APRN ACOUSTICAL TILE DRILL PRESS OPERATOR Unavailable + Diana Desir [facility] Unavailable [phone] Jelena David OD Unavailable [phone] Galo Burrell MD Unavailable Unavailable Livan Sharif MD Unavailable Livan Sharif MD Unavailable + Catherine Cm MD Unavailable + Valery Veronica PA-C Unavailable [phone] Catherine Cm MD Unavailable + Johnny Murillo MD Unavailable [phone] Brea Quinn APRN ACOUSTICAL TILE DRILL PRESS OPERATOR Unavailable [phone] [place], Brea P TEAM DRIVER ACOUSTICAL TILE DRILL PRESS OPERATOR Unavailable [phone] Jose Francisco Johnson MD Unavailable Livan Sharif MD Unavailable Catherine Cm MD Unavailable + Sydnie Martinez RN Unavailable Unavailable Alfonso Renteria MD Unavailable Esha Grimm PA-C Primary Care Provider Cheng Todd PA-C Unavailable Armani Radha Sia TEAM DRIVER ACOUSTICAL TILE DRILL PRESS OPERATOR Unavailable [phone] Jelena David OD Unavailable [phone] Pao Joseph RN Unavailable Unavailable Esha Grimm PA-C Unavailable [phone] Valery Veronica PA-C Unavailable Rey Tay MD Unavailable Rocky Zepeda DO Unavailable Philip Dumont MD Unavailable [phone] Meredith Carrera PA-C Unavailable [phone] Neil Kent MD Unavailable Juan Pablo Emmanuel MD Unavailable Audrey Waite PA-C Unavailable Valery Veronica PA-C Unavailable Herminia Hatch MD Unavailable Jelena David OD Unavailable [phone] Juan Pablo Emmanuel MD Unavailable Maru Man PA-C Unavailable [phone] Maru Man PA-C Unavailable [phone] Jelena David OD Unavailable Fabiano Correa MANAGER GIFT Unavailable Encounter Details Date Type Department Care Team (Late st Contact Info) Description 05/16/2020 MyC Medical Advice [facility] [address] [place] [address] Jerome Ferrell RN Social History Tobacco Use [...] PM CDT Legal Sex Female 4:13 AM COOPERATIVE EDUCATION COORDINATOR Gender Identity Female 03/02/2021 5:45 PM CDT Sexual Orientation Straight 02/28/2020 12 :51 AM CDT COVID-19 Exposure Response Date Recorded In the last month, have you been in contact with someone who was confirmed or suspected to have Coronavirus / COVID-19? No / Unsure 05/12/2020 9:03 AM COOPERATIVE EDUCATION COORDINATOR documented as of this encounter Plan of Treatment Upcoming Encounters Date Type Department Care Team (Latest Contact Info) Description 01/02/2025 1:10 PM CDT Ancillary Procedure [address] [phone] Lauren Claudio PA-C [address] [place] [address] 01/17/2025 10:00 AM CDT Appointment [facility] [address] [place] [phone] Lauren Claudio PA-C [address] [place] [address] 04/16/2025 11:00 AM CDT Virtual Visit [facility] [address] [place] [phone] Meredith Carrera PA-C [address] [place] [address] documented as of this encounter Visit Diagnoses Not on filedocumented in this encounter Additional Health Concerns Infection Onset Date Last Indicated Resolved Time Rule Out COVID-19 07/30/2020 07/30/2020 07/30/2020 7:11 PM COOPERATIVE EDUCATION COORDINATOR Rule Out COVID-19 08/30/2020 08/30/2020 08/30/2020 5:05 PM COOPERATIVE EDUCATION COORDINATOR Rule Out COVID-19 09/24/2020 09/24/2020 09/24/2020 9:24 AM CDT Rule Out COVID-19 11/05/2020 11/05/2020 11/06/2020 1:09 PM CDT Rule Out COVID-19 05/11/2021 05/11/2021 05/13/2021 10:18 AM CDT Rule Out COVID-19 07/13/2021 07/13/2021 07/14/2021 3:04 PM COOPERATIVE EDUCATION COORDINATOR Rule Out COVID-19 07/18/2021 07/18/2021 07/20/2021 1:56 PM COOPERATIVE EDUCATION COORDINATOR COVID-19 07/18/2021 07/18/2021 08/08/2021 11:3 9 PM COOPERATIVE EDUCATION COORDINATOR Rule Out COVID-19 12/18/2021 12/18/2021 12/19/2021 11:34 AM CDT Rule Out COVID-19 02/24/2022 02/24/2022 02/25/2022 1:08 PM CDT Rule Out COVID-19 04/26/2022 04/26/2022 04/26/2022 6:47 AM CDT Rule Out COVID-19 05/17/2022 05/17/2022 05/17/2022 10:20 PM COOPERATIVE EDUCATION COORDINATOR Rule Out COVID-19 06/09/2022 06/09/2022 06/09/2022 9:35 AM COOPERATIVE EDUCATION COORDINATOR COVID-19 06/09/2022 06/09/2022 06/30/2022 11:4 1 PM COOPERATIVE EDUCATION COORDINATOR Rule Out COVID-19 11/10/2022 11/10/2022 11/11/2022 [...] documented as of this encounter Care Teams Glaze Handler Relationship Specialty Start Date End Date Marija Edgar APRN CNP [address] [place] [address] PCP - General Nurse Practitioner 04/30/20 04/14/23 Esha Grimm PA-C [address] [place] [address] PCP - General Family Medicine 05/04/23 Lita Oseguera Personal Advocate & Liaison (PAL) 02/28/20 03/27/23 Rakesh Cid PA-C [address] [place] [address] Assigned PCP 03/02/20 06/07/20 Chanelle Mccann APRN CNM [address] [facility] [facility] [address] [place] [address] Assigned OBGYN Provider 05/02/2005/09 Lesley Guillermo, W Community Health Worker 05/30/2005/12 Kyara De La Fuente, RN Specialty Brick Kiln Burner Neurology 06/04/20 03/05/21 Marija Edgar APRN ACOUSTICAL TILE DRILL PRESS OPERATOR [address] [facility] [place] [address] Assigned PCP 06/08/20 04/29/23 Mynor Broussard MD [address] [facility] [address] [place], [place] [phone] Assigned Surgical Provider 06/01/20 11/28/21 Keisha Dotson MD [address] [place], [place] [address] Assigned Neuroscience Provider 06/04/20 04/01/23 Mary Mejia Financial Resource Worker 08/07/20 08/21/20 Stacey Briones, [facility] Lead Brick Kiln Burner Primary Care - CC 08/11/2012/30 Lesley Guillermo, [...] [facility] [address] [place] [address] Pharmacist Pharmacist 04/17/21 Rain Galaviz PA-C [address] [place] [address] [place] [address] Physician Senior Courtroom Clerk Dermatology 04/28/21 Summer Lara MD [address] [place] [address] [phone] Assigned OBGYN Provider 05/10/2105/23 Summer Lara MD [address] [place] [address] 817314 Assigned OBGYN Provider 05/31/21 Summer Lara MD [address] [place] [address] 928874 Assigned OBGYN Provider 05/24/2105/30 Tavia Wyatt MD [address] [place] [address] [phone] Dermatology 07/14/21 Johnny Murillo MD [address] [place] [address] Assigned Musculoskeletal Provider 08/30/21 03/17/22 Erica Farrell APRN ACOUSTICAL TILE DRILL PRESS OPERATOR [address] [facility] [address] [place] [address] Nurse Practitioner Cardiovascular Disease 09/09/21 Teresita Bean [facility] [address] [place] [phone] Pharmacist Pharmacist 09/24/21 09/29/21 Tavia Wyatt MD [address] [place], [place] 006030 Assigned Surgical Provider 11/29/21 05/07/22 [facility] [address] [place] [address] Assigned MTM Pharmacist 01/02/22 Rich Barrett MD [address] [place] [address] Physician Ophthalmology 01/21/22 Neil Kent MD [address] [place], [place] 319[address] Dermatology 02/24/22 Roney Story DPM [address] [facility] [address] [place] [address] Assigned Musculoskeletal Provider 03/20/22 08/13/22 Erica Farrell APRN ACOUSTICAL TILE DRILL PRESS OPERATOR [address] [place] [address] Assigned Heart and Vascular Provider 04/03/22 04/16/22 Diana Desir, [facility] [address] [place] [address] Assigned MTM Pharmacist 04/07/22 Jelena David OD [address] [place] [address] Assigned Surgical Provider 05/08/22 10/08/22 Galo Burrell MD Assigned Heart and Vascular Provider 04/17/22 06/11/22 Livan Sharif MD [address] [place] [address] Cardiovascular Disease 05/14/22 Livan Sharif MD [address] [place] [address] Assigned Heart and Vascular Provider 06/12/22 07/23/22 Catherine Cm MD [address] [place] [address] Cardiovascular Disease 07/21/22 Valery Veronica PAUcheC [address] [place] [address] Physician Senior Courtroom Clerk Dermatology 07/21/22 Catherine Cm MD [address] [place] [address] Assigned Heart and Vascular Provider 07/24/22 11/05/22 Johnny Murillo MD [address] [address] Assigned Musculoskeletal Provider 08/14/22 10/08/22 Brea Quinn APRN ACOUSTICAL TILE DRILL PRESS OPERATOR [address] [place] [address] [phone] Nurse Practitioner Dermatology 09/21/22 Brea Quinn APRN ACOUSTICAL TILE DRILL PRESS OPERATOR [address] [place] [address] [place] [address] Assigned Surgical Provider 10/09/22 05/01/24 [place] [address] [facility] [address] [place] [address] Assigned Musculoskeletal Provider 10/09/22 05/01/24 Livan Sharif MD [address] [facility] [address] [place] [address] Assigned Heart and Vascular Provider 11/06/22 11/12/22 Catherine Cm MD [address] [facility] [address] [place] [phone] Assigned Heart and Vascular Provider 11/13/22 05/27/23 Sydnie Martinez RN Personal Advocate & Liaison (PAL) Family Medicine 03/28/23 07/31/23 Alfonso Renteria MD [address] [facility] 200 [place] [address] Assigned Neuroscience Provider 04/02/23 09/29/24 Cheng Todd PA-C [address] [place] [address] Assigned PCP 04/30/23 07/15/23 Radha Lomeli APRN ACOUSTICAL TILE DRILL PRESS OPERATOR [address] [facility] [address] [place] [address] Assigned Heart and Vascular Provider 05/28/23 11/29/24 Jelena David OD [address] [place] [address] Ophthalmology 06/15/23 Pao Joseph, VJ Personal Advocate & Liaison (PAL) Nurse 08/01/23 11/07/23 Esha Grimm PA-C [address] [place] [phone] Assigned PCP 07/16/23 Valery Veronica PA-C [address] [place] [address] Physician Senior Courtroom Clerk Dermatology 09/19/23 Rey Tay MD [address] [place] [address] 228365 Gastroenterology 09/20/23 Rocky Zepeda DO [address] [place] [address] Physician Gastroenterology 09/20/23 Philip Dumont MD [address] [place] [address] Physician Ophthalmology 09/22/23 Meredith Carrera PA-C [address] [place] [address] Assigned Gastroenterology Provider 11/01/23 Neil Kent MD [address] [address] Dermatology 11/02/23 [place] [address] [place], [place] 17[address] Neurological Surgery 12/26/23 Audrey Waite PA-C [address] [place] [address] Physician Senior Courtroom Clerk Dermatology 02/28/24 Valery Veronica PA-C [address] [place] [address] Physician Senior Courtroom Clerk Dermatology 04/10/24 Herminia Hatch MD [address] [place] [address] [phone] Assigned Rheumatology Provider 07/02/24 Jelena David OD [address] [place] [address] [place] [address] Ophthalmology 08/30/24 [place] [address] [place] [address] Assigned Neuroscience Provider 09/30/24 Maru Man PA-C [address] [place] [address] Physician Senior Courtroom Clerk Dermatology 10/03/24 Maru Man PA-C [address] [place] [address] Physician Senior Courtroom Clerk Dermatology 10/22/24 Jelena David OD [address] [facility] [place] [address] Assigned Surgical Provider 10/31/24 Fabiano Correa NP [address] [place] [address] Assigned Heart and Vascular Provider 11/30/24 documented as of this encounter
--- OUTSIDE RECORDS SUMMARY | 2024-12-31 03:18 | XMS_ITS | Encounter Summary ---
Author Organization [facility] Address [address] [place] [address] Care Team Providers Care Manager Supply Chain Name Role Phone Rakesh Cid PA-C Primary Care Provider Lita Oseguera Unavailable Unavailable Rakesh Cid PA-C Unavailable [phone] Lita Oseguera Unavailable Unavailable Marija Edgar APRN ADULT SECONDARY EDUCATION INSTRUCTOR Primary Care Provider + Chanelle Mccann APRN CNM Unavailab le Lesley Guillermo Unavailable [phone] Kyara De La Fuente RN Unavailable [phone] Marija Edgar APRN ADULT SECONDARY EDUCATION INSTRUCTOR Unavailable Mynor Broussard MD Unavailable [phone] Keisha Dotson MD Unavailable Mary Mejia Unavailable Unavailable Stacey Briones BUSINESS ANALYSIS PROFESSIONAL Unavailable Lesley Guillermo Unavailable [phone] Mary Mejia Unavailable Unavailable Lita Oseguera Unavailable Unavailable Galo Burrell MD Unavailable Unavailable Cristina Wood Unavailable Lesley Guillermo Unavailable Meredith Bedoya Unavailable Unavailable Cristina Wood Unavailable Diana Desir [facility] Unavailable [phone] Rain Galaviz PA-C Unavailable Summer Lara MD Unavailable [phone] Summer Lara MD Unavailable [phone] Summer Lara MD Unavailable [phone] Tavia Wyatt MD Unavailable [phone] Johnny Murillo MD Unavailable [phone] Erica Farrell APRN ADULT SECONDARY EDUCATION INSTRUCTOR Unavailable Teresita Bean [facility] Unavailable Tavia Wyatt MD Unavailable [phone] Diana Desir [facility] Unavailable [phone] Rich Barrett MD Unavailable Neil Kent MD Unavailable Roney Story DPM Unavailable Erica Farrell APRN ADULT SECONDARY EDUCATION INSTRUCTOR Unavailable Diana Desir [facility] Unavailable [phone] Jelena David OD Unavailable Galo Burrell MD Unavailable Unavailable Livan Sharif MD Unavailable Livan Sharif MD Unavailable + Catherine Cm MD Unavailable + Valery Veronica PA-C Unavailable [phone] Catherine Cm MD Unavailable + Johnny Murillo MD Unavailable [phone] Brea Quinn APRN ADULT SECONDARY EDUCATION INSTRUCTOR Unavailable [phone] Brea Quinn SUPERVISOR BUFFING AND PASTING ADULT SECONDARY EDUCATION INSTRUCTOR Unavailable [phone] Jose Francisco Johnson MD Unavailable Livan Sharif MD Unavailable Catherine Cm MD Unavailable + Sydnie Martinez RN Unavailable Unavailable Alfonso Renteria MD Unavailable [phone] Esha Grimm PA-C Primary Care Provider Cheng Todd PA-C Unavailable [phone] Radha Lomeli SUPERVISOR BUFFING AND PASTING ADULT SECONDARY EDUCATION INSTRUCTOR Unavailable Jelena David OD Unavailable Pao Joseph RN Unavailable Unavailable Esha Grimm PA-C Unavailable [phone] Valery Veronica PA-C Unavailable Rey Tay [...] Jelena David OD Unavailable Madeline Fabiano Gabo CLAIM TRAINEE Unavailable [phone] Encounter Details Date Type Department Care Team (Late st Contact Info) Description 04/25/2020 MyC Medical Advice [facility] [address] [place] [address] [phone] Rakesh Cid PA-C [address] [place] [address] Social History Tobacco Use Types Packs/Day Years [...] PM CDT Legal Sex Female 4:13 AM BOIL OFF WORKER Gender Identity Female 03/02/2021 5:45 PM [...] Description 01/02/2025 1:10 PM CDT Ancillary Procedure [facility] [address] [place] [address] [phone] Lauren Claudio PA-C [address] [place], [place] [phone] 01/17/2025 10:00 AM CDT Appointment [facility] Respiratory [address] [place] [address] Lauren Claudio PA-C [address] [place] [address] 04/16/2025 11:00 AM CDT Virtual Visit [facility] [address] [place] [phone] Meredith Carrera PA-C [address] [place] [address] documented as of this encounter Visit Diagnoses Not on filedocumented in this encounter Additional Health Concerns Infection Onset Date Last Indicated Resolved Time Rule Out COVID-19 07/30/2020 07/30/2020 07/30/2020 7:11 PM BOIL OFF WORKER Rule Out COVID-19 08/30/2020 08/30/2020 08/30/2020 5:05 PM BOIL OFF WORKER Rule Out COVID-19 09/24/2020 09/24/2020 09/24/2020 9:24 AM CDT Rule Out COVID-19 11/05/2020 11/05/2020 11/06/2020 1:09 PM CDT Rule Out COVID-19 05/11/2021 05/11/2021 05/13/2021 10:18 AM CDT Rule Out COVID-19 07/13/2021 07/13/2021 07/14/2021 3:04 PM BOIL OFF WORKER Rule Out COVID-19 07/18/2021 07/18/2021 07/20/2021 1:56 PM BOIL OFF WORKER COVID-19 07/18/2021 07/18/2021 08/08/2021 11:3 9 PM BOIL OFF WORKER Rule Out COVID-19 12/18/2021 12/18/2021 12/19/2021 11:34 AM CDT Rule Out COVID-19 02/24/2022 02/24/2022 02/25/2022 1:08 PM CDT Rule Out COVID-19 04/26/2022 04/26/2022 04/26/2022 6:47 AM CDT Rule Out COVID-19 05/17/2022 05/17/2022 05/17/2022 10:20 PM BOIL OFF WORKER Rule Out COVID-19 06/09/2022 06/09/2022 06/09/2022 9:35 AM BOIL OFF WORKER COVID-19 06/09/2022 06/09/2022 06/30/2022 11:4 1 PM BOIL OFF WORKER Rule Out COVID-19 11/10/2022 11/10/2022 11/11/2022 [...] this encounter Care Teams Manager Supply Chain Relationship Specialty Start Date End Date Rakesh Cid PA-C PCP - General Physician Abstract Clerk - Medical 05/14/19 04/29/20 Marija Edgar APRN ADULT SECONDARY EDUCATION INSTRUCTOR [address] [place], [place] [phone] PCP - General Nurse Practitioner 04/30/20 04/14/23 Esha Grimm PA-C [address] [place] [phone] PCP - General Family Medicine 05/04/23 Lita Oseguera Personal Advocate & Liaison (PAL) 02/28/20 03/27/23 Rakesh Cid PA-C [address] [place] [address] Assigned PCP 03/02/20 06/07/20 Lita Oseguera Personal Advocate & Liaison (PAL) 04/07/20 04/29/20 Chanelle Mccann APRN CNM [address] [place] [address] [address] [place] [address] Assigned OBGYN Provider 05/02/2005/09 Lesley Guillermo W Community Health Worker 05/30/2005/12 Kyara De La Fuente, RN Specialty Press Tender [employer] Neurology 06/04/20 03/05/21 Marija Edgar APRN ADULT SECONDARY EDUCATION INSTRUCTOR [address] [place] [address] Assigned PCP 06/08/20 04/29/23 Mynor Broussard MD [address] [facility] 500 [place] [address] Assigned Surgical Provider 06/01/20 11/28/21 Keisha Dotson MD [address] [place] [address] Assigned Neuroscience Provider 06/04/20 04/01/23 Mary Mejia Financial Resource Worker 08/07/20 08/21/20 AnselmoStacey, [facility] Lead Press Tender [employer] Primary Care - CC 08/11/2012/30 Lesley Guillermo, [facility] Community Health Worker 08/11/2010/01 Aditi Mejiandra Financial Resource Worker 09/02/20 10/06/20 Lita Oseguera Personal Advocate & Liaison (PAL) Family Medicine 09/10/20 09/21/20 Galo Burrell MD Assigned Heart and Vascular Provider 10/05/20 04/02/22 Cristina Wood Financial Resource Worker 10/07/20 10/14/20 Lesley Guillermo, [facility] Community Health Worker 10/23/2012/30 Meredith Bedoya Financial Resource Worker 10/23/20 11/23/20 Cristina Wood Financial Resource Worker 02/09/21 02/09/21 Diana Desir, [facility] [address] [place] [address] [phone] Pharmacist Pharmacist 04/17/21 Rain Galaviz PA-C [address] [place] [address] [address] [place], [place] [phone] Physician Abstract Clerk Dermatology 04/28/21 Summer Lara MD [address] [place] [address] Assigned OBGYN Provider 05/10/2105/23 Summer Lara MD [address] [place] [address] Assigned OBGYN Provider 05/31/21 2 Summer Lara MD [address] [place] [address] Assigned OBGYN Provider 05/24/2105/30 Tavia Wyatt MD [address] [place] [address] Dermatology 07/14/21 Johnny Murillo MD [facility] [facility] [address] [place] [address] Assigned Musculoskeletal Provider 08/30/21 03/17/22 Erica Farrell APRN ADULT SECONDARY EDUCATION INSTRUCTOR [address] [facility] [address] [place] [address] Nurse Practitioner Cardiovascular Disease 09/09/21 Teresita Bean [facility] [address] [place], [place] [phone] Pharmacist Pharmacist 09/24/21 09/29/21 Tavia Wyatt MD [address] [place] [address] Assigned Surgical Provider 11/29/21 05/07/22 [facility] [place] [address] Assigned MTM Pharmacist 01/02/22 Rich Barrett MD [facility] [address] Physician Ophthalmology 01/21/22 Neil Kent MD [address] [place] [address] Dermatology 02/24/22 Roney Story DPM [address] [facility] [address] [place], [place] 728937 Assigned Musculoskeletal Provider 03/20/22 08/13/22 Erica Farrell APRN ADULT SECONDARY EDUCATION INSTRUCTOR [address] [place] [address] Assigned Heart and Vascular Provider 04/03/22 04/16/22 [facility] [address] [place] [address] Assigned MTM Pharmacist 04/07/22 Jelena David OD [address] [place] [address] Assigned Surgical Provider 05/08/22 10/08/22 Galo Burrell MD Assigned Heart and Vascular Provider 04/17/22 06/11/22 Livan Sharif MD [address] [place] [id number] Cardiovascular Disease 05/14/22 Livna Sharif MD [address] [place] [address] Assigned Heart and Vascular Provider 06/12/22 07/23/22 Catherine Cm MD [address] [place] [address] Cardiovascular Disease 07/21/22 Valery Veronica PA-C [address] [place] [address] Physician Abstract Clerk Dermatology 07/21/22 Catherine Cm MD [address] [place] [id number] Assigned Heart and Vascular Provider 07/24/22 11/05/22 Johnny Murillo MD [facility] [id number] Assigned Musculoskeletal Provider 08/14/22 10/08/22 Brea Quinn APRN ADULT SECONDARY EDUCATION INSTRUCTOR [address] [place] [address] 936115 Nurse Practitioner Dermatology 09/21/22 Brea Quinn APRN ADULT SECONDARY EDUCATION INSTRUCTOR [address] [place] [address] [place] [id number] Assigned Surgical Provider 10/09/22 05/01/24 [place] [address] [facility] [place] [address] Assigned Musculoskeletal Provider 10/09/22 05/01/24 Livan Sharif MD [address] [place] 309165 Assigned Heart and Vascular Provider 11/06/22 11/12/22 Catherine Cm MD [address] [place] [address] Assigned Heart and Vascular Provider 11/13/22 05/27/23 Sydnie Martinez RN Personal Advocate & Liaison (PAL) Family Medicine 03/28/23 07/31/23 Alfonso Renteria MD [address] [facility] [address] [place] [address] Assigned Neuroscience Provider 04/02/23 09/29/24 Cheng Todd PA-C [address] [place] [address] [phone] Assigned PCP 04/30/23 07/15/23 Radha Lomeli APRN ADULT SECONDARY EDUCATION INSTRUCTOR [address] [place] [address] Assigned Heart and Vascular Provider 05/28/23 11/29/24 Jelena David OD [address] [place] [address] Ophthalmology 06/15/23 Pao Joseph, VJ Personal Advocate & Liaison (PAL) Nurse 08/01/23 11/07/23 Esha Grimm PA-C [address] [place] [phone] Assigned PCP 07/16/23 Valery Veronica PA-C [address] [place] [address] Physician Abstract Clerk Dermatology 09/19/23 Rey Tay MD [address] [place] [address] MD Gastroenterology 09/20/23 Rocky Zepeda DO [address] [place] [address] Physician Gastroenterology 09/20/23 Philip Dumont MD [address] [place] [address] Physician Ophthalmology 09/22/23 Meredith Carrera PA-C [address] [place] [address] Assigned Gastroenterology Provider 11/01/23 Neil Kent MD [address] [place] [address] Dermatology 11/02/23 [place] [address] [facility] [address] Neurological Surgery 12/26/23 Audrey Waite PA-C [address] [place] [address] Physician Abstract Clerk Dermatology 02/28/24 Valery Veronica PA-C 758777 [address] [address] Physician Abstract Clerk Dermatology 04/10/24 Herminia Hatch MD [facility]5 [place], [place] [phone] Assigned Rheumatology Provider 07/02/24 Jelena David OD [address] [place] [address] Ophthalmology 08/30/24 [place] [address] [place] [address] Assigned Neuroscience Provider 09/30/24 Maru Man PA-C [address] [place] [address] Physician Abstract Clerk Dermatology 10/03/24 Maru Man PA-C [address] [place] [address] Physician Abstract Clerk Dermatology 10/22/24 Jelena David, SONJA [address] [place] [address] Assigned Surgical Provider 10/31/24 Fabiano Correa, BRYCE [address] [place] [address] Assigned Heart and Vascular Provider 11/30/24 documented as of this encounter
--- OUTSIDE RECORDS SUMMARY | 2024-12-31 03:18 | XMS_ITS | Encounter Summary ---
Author Organization [facility] Address [address] [place] [address] Care Team Providers Care Welder Manufacture Name Role Phone Lita Oseguera Unavailable Unavailable Marija Edgar APRN COMMUNICATIONS FIELD TECHNICIAN Primary Care Provider + Chanelle Mccann APRN CNM Unavailab le Kyara De La Fuente RN Unavailable [phone] Marija Edgar APRN COMMUNICATIONS FIELD TECHNICIAN Unavailable [phone] Mynor Broussard MD Unavailable [phone] Keisha Dotson MD Unavailable Mary Mejia Unavailable Unavailable Stacey Briones HOT STRIP MILL INSPECTOR Unavailable [phone] Lesley Gulilermo CHW Unavailable Mary Mejia Unavailable Unavailable Lita Oseguera Unavailable Unavailable aGlo Burrell MD Unavailable Unavailable Cristina Wood Unavailable Lesley Guillermo CHW Unavailable Meredith Bedoya Unavailable Unavailable Cristina Wood Unavailable Diana Desir [facility] Unavailable [phone] [place], Rain Lena PA-C Unavailable Summer Lara MD Unavailable [phone] Summer Lara MD Unavailable [phone] Summer Lara MD Unavailable Tavia Wyatt MD Unavailable [phone] Johnny Murillo MD Unavailable [phone] Erica Farrell APRN COMMUNICATIONS FIELD TECHNICIAN Unavailable VikasTeresita H Unavailable Tavia Wyatt MD Unavailable [phone] Diana Desir [facility] Unavailable [phone] Rich Barrett MD Unavailable [phone] Neil Kent MD Unavailable Roney Story [facility] Unavailable Erica Farrell APRN COMMUNICATIONS FIELD TECHNICIAN Unavailable Diana Desir [facility] Unavailable [phone] Jelena David OD Unavailable [phone] Galo Burrell MD Unavailable Unavailable Livan Sharif MD Unavailable Livan Sharif MD Unavailable Catherine Cm MD Unavailable + Valery Veronica PA-C Unavailable [phone] Catherine Cm MD Unavailable + Johnny Murillo MD Unavailable [phone] Brea Quinn APRN COMMUNICATIONS FIELD TECHNICIAN Unavailable [phone] Brea Quinn NBA PLAYER COMMUNICATIONS FIELD TECHNICIAN Unavailable [phone] Jose Francisco Johnson MD Unavailable Livan Sharif MD Unavailable Catherine Cm MD Unavailable + Sydnie Martinez RN Unavailable Unavailable Alfonso Renteria MD Unavailable [phone] Esha Grimm PA-C Primary Care Provider Cheng Todd PA-C Unavailable Radha Lomeli APRN, CNP Unavailable Jelena David OD Unavailable [phone] Pao Joseph RN Unavailable Unavailable Esha Grimm PA-C Unavailable [phone] Valery Veronica PA-C Unavailable Rey Tay MD Unavailable Rocky Zepeda DO Unavailable Philip Dumont MD Unavailable Meredith Carrera PA-C Unavailable [phone] Neil Kent MD Unavailable Juan Pablo Emmanuel MD Unavailable Audrey Waite PA-C Unavailable Valery Veronica PA-C Unavailable Herminia Hatch MD Unavailable Jelena David OD Unavailable Juan Pablo Emmanuel MD Unavailable Maru Man PA-C Unavailable Maru Man PA-C Unavailable Jelena David OD Unavailable Fabiano Correa NP Unavailable Encounter Details Date Type Department Care Team (Latest Contact Info) Description 07/29/2020 MyC Medical Advice [facility] [id number] [place] [phone] Marija Edgar APRN COMMUNICATIONS FIELD TECHNICIAN [address] [facility] [place] [phone] Palpitations (Primary Dx) Social History Tobacco Use [...] PM CDT Legal Sex Female 4:13 AM WRAPPER STITCHER Gender Identity Female 03/02/2021 5:45 PM CDT Sexual Orientation Straight 02/28/2020 12 :51 AM CDT COVID-19 Exposure Response Date Recorded In the last month, have you been in contact with someone who was confirmed or suspected to have Coronavirus / COVID-19? No / Unsure 07/30/2020 4:53 PM WRAPPER STITCHER documented as of this encounter Miscellaneous Notes * Telephone Encounter - Marija Edgar APRN CNP - 07/30/2020 10:21 AM WRAPPER STITCHER Responded via MyChart Marija Edgar APRN CNP on 07/30/2020 at 10:28 AM PER STITCHER documented in this encounter Plan of Treatment Upcoming Encounters Date Type Department Care Team (Latest Contact Info) Description 01/02/2025 1:10 PM CDT Ancillary Procedure [address] [phone] Lauren Claudio PA-C [id number] [place] [address] [phone] 01/17/2025 10:00 AM CDT Appointment [facility] Respiratory [address] [place] [phone] Lauren Claudio PA-C [address] [place], [place] [phone] 04/16/2025 11:00 AM CDT Virtual Visit [facility] [address] 4th [place] [phone] Meredith Carrera PA-C [address] [place] [address] documented as of this encounter Visit Diagnoses Diagnosis Palpitations- Primary documented in this encounter Additional Health Concerns Infection Onset Date Last Indicated Resolved Time Rule Out COVID-19 07/30/2020 07/30/2020 07/30/2020 7:11 PM WRAPPER STITCHER Rule Out COVID-19 08/30/2020 08/30/2020 08/30/2020 5:05 PM WRAPPER STITCHER Rule Out COVID-19 09/24/2020 09/24/2020 09/24/2020 9:24 AM CDT Rule Out COVID-19 11/05/2020 11/05/2020 11/06/2020 1:09 PM CDT Rule Out COVID-19 05/11/2021 05/11/2021 05/13/2021 10:18 AM CDT Rule Out COVID-19 07/13/2021 07/13/2021 07/14/2021 3:04 PM WRAPPER STITCHER Rule Out COVID-19 07/18/2021 07/18/2021 07/20/2021 1:56 PM WRAPPER STITCHER COVID-19 07/18/2021 07/18/2021 08/08/2021 11:3 9 PM WRAPPER STITCHER Rule Out COVID-19 12/18/2021 12/18/2021 12/19/2021 11:34 AM CDT Rule Out COVID-19 02/24/2022 02/24/2022 02/25/2022 1:08 PM CDT Rule Out COVID-19 04/26/2022 04/26/2022 04/26/2022 6:47 AM CDT Rule Out COVID-19 05/17/2022 05/17/2022 05/17/2022 10:20 PM WRAPPER STITCHER Rule Out COVID-19 06/09/2022 06/09/2022 06/09/2022 9:35 AM WRAPPER STITCHER COVID-19 06/09/2022 06/09/2022 06/30/2022 11:4 1 PM WRAPPER STITCHER Rule Out COVID-19 11/10/2022 11/10/2022 11/11/2022 [...] Total Score: 9 06/25/20 20 7:04 AM WRAPPER STITCHER documented as of this encounter Care Teams Welder Manufacture Relationship Specialty Start Date End Date Marija Edgar APRN CNP PCP - General Nurse Practitioner 04/30/20 04/14/23 Esha Grimm PA-C [address] [place] [phone] PCP - General Family Medicine 05/04/23 Lita Oseguera Personal Advocate & Liaison (PAL) 02/28/20 03/27/23 Chanelle Mccann APRN CNM [address] [facility] [address] [place] [address] Assigned OBGYN Provider 05/02/2005/09 Kyara De La Fuente, RN Specialty Concrete Vibrator Operator Neurology 06/04/20 03/05/21 Marija Edgar APRN COMMUNICATIONS FIELD TECHNICIAN Assigned PCP 06/08/20 04/29/23 Mynor Broussard MD [address] [facility] [address] [place], [place] [phone] Assigned Surgical Provider 06/01/20 11/28/21 Keisha Dotson MD [address] [place] [address] Assigned Neuroscience Provider 06/04/20 04/01/23 Mary Mejia Financial Resource Worker 08/07/20 08/21/20 Stacey Briones, HOT STRIP MILL INSPECTOR Lead Concrete Vibrator Operator Primary Care - CC 08/11/2012/30 Lesley Guillermo, [facility] Community Health Worker 08/11/2010/01 Mary Mejia Financial Resource Worker 09/02/20 10/06/20 Lita Oseguera Personal Advocate & Liaison (PAL) Family Medicine 09/10/20 09/21/20 Galo Burrell MD Assigned Heart and Vascular Provider 10/05/20 04/02/22 Cristina Wood Financial Resource Worker 10/07/20 10/14/20 Lesley Guillermo, [facility] Community Health Worker 10/23/2012/30 Meredith Bedoya Financial Resource Worker 10/23/20 11/23/20 Cristina Wood Financial Resource Worker 02/09/21 02/09/21 Diana Desir, [facility] [address] [place] [address] Pharmacist Pharmacist 04/17/21 Rain Galaviz PA-C [address] [place] [address] [address] [place] [place], [place] [phone] Physician Telephone Operator Chief Dermatology 04/28/21 Summer Lara MD [address] [place] [address] [phone] Assigned OBGYN Provider 05/10/2105/23 Summer Lara MD [address] [place] [address] [phone] Assigned OBGYN Provider 05/31/21 2 Summer Lara MD [address] [place] [address] [phone] Assigned OBGYN Provider 05/24/2105/30 Tavia Wyatt MD [address] [place] [address] [phone] Dermatology 07/14/21 Johnny Murillo MD [address] [place] [address] Assigned Musculoskeletal Provider 08/30/21 03/17/22 Erica Farrell APRN COMMUNICATIONS FIELD TECHNICIAN [address] [facility] [address] [place] [address] Nurse Practitioner Cardiovascular Disease 09/09/21 Teresita Bean [facility] [address] [facility] [place] [address] Pharmacist Pharmacist 09/24/21 09/29/21 Tavia Wyatt MD [address] [place] [address] Assigned Surgical Provider 11/29/21 05/07/22 [facility] [address] [place] [address] Assigned MTM Pharmacist 01/02/22 Rich Barrett MD [address] [place] [address] Physician Ophthalmology 01/21/22 Neil Kent MD [address] [place] [address] Dermatology 02/24/22 Roney Story DPM [address] [facility] [address] [place] [address] Assigned Musculoskeletal Provider 03/20/22 08/13/22 Erica Farrell APRN COMMUNICATIONS FIELD TECHNICIAN [address] [place] [address] Assigned Heart and Vascular Provider 04/03/22 04/16/22 Diana Desir [facility] [address] [place] [address] Assigned MTM Pharmacist 04/07/22 Jelena David OD [address] [facility] [place] [address] Assigned Surgical Provider 05/08/22 10/08/22 Galo Burrell MD Assigned Heart and Vascular Provider 04/17/22 06/11/22 Livan Sharif MD [address] [address] [place] [address] Cardiovascular Disease 05/14/22 Livan Sharif MD [address] [place] [address] [place] [address] Assigned Heart and Vascular Provider 06/12/22 07/23/22 Catherine Cm MD [address] [address] [place] 349345 Cardiovascular Disease 07/21/22 Valery Veronica PAUcheC [address] [place] [address] Physician Telephone Operator Chief Dermatology 07/21/22 Catherine Cm MD [address] [address] [place] [address] Assigned Heart and Vascular Provider 07/24/22 11/05/22 Johnny Murillo MD [address] 136214 Assigned Musculoskeletal Provider 08/14/22 10/08/22 Brea Quinn APRN COMMUNICATIONS FIELD TECHNICIAN [address] [place], [place] 586[address] Nurse Practitioner Dermatology 09/21/22 Brea Quinn APRN COMMUNICATIONS FIELD TECHNICIAN [facility] [address]12 Assigned Surgical Provider 10/09/22 05/01/24 [place] [address] [facility] [address] [place] [address] Assigned Musculoskeletal Provider 10/09/22 05/01/24 Livan Sharif MD [address] [facility] [address] [place] [address] Assigned Heart and Vascular Provider 11/06/22 11/12/22 Catherine Cm MD [address] [facility] [address] [place] [address] Assigned Heart and Vascular Provider 11/13/22 05/27/23 Sydnie Martinez RN Personal Advocate & Liaison (PAL) Family Medicine 03/28/23 07/31/23 Alfonso Renteria MD [address] [facility] [address] [place], [place] 622[address] Assigned Neuroscience Provider 04/02/23 09/29/24 Cheng Todd PA-C [address] [place] [address] [phone] Assigned PCP 04/30/23 07/15/23 Radha Lomeli APRN COMMUNICATIONS FIELD TECHNICIAN [address] [facility] [address] [place] [address] Assigned Heart and Vascular Provider 05/28/23 11/29/24 Jelena David OD [address] [facility] [address] [place] [phone] MD Ophthalmology 06/15/23 Pao Joseph, VJ Personal Advocate & Liaison (PAL) Nurse 08/01/23 11/07/23 Esha Grimm PA-C [address] [place] [phone] Assigned PCP 07/16/23 Valery Veronica PA-C [address] [place] [address] Physician Telephone Operator Chief Dermatology 09/19/23 Rey Tay MD [address] [place] [address] Gastroenterology 09/20/23 Rocky Zepeda DO [address] [place] [address] [phone] Physician Gastroenterology 09/20/23 Philip Dumont MD [address] [place] [address] [phone] Physician Ophthalmology 09/22/23 Meredith Carrera PA-C [address] [place], [place] 123615 Assigned Gastroenterology Provider 11/01/23 Neil Kent MD [address] [place] [address] Dermatology 11/02/23 [place] [address] [facility] [place], [place] [phone] Neurological Surgery 12/26/23 Audrey Waite PA-C [address] [place], [place] 8455[address] Physician Telephone Operator Chief Dermatology 02/28/24 Valery Veronica PA-C [address] [address], [place] [address] Physician Telephone Operator Chief Dermatology 04/10/24 Herminia Hatch MD [address] [place] [address] [phone] Assigned Rheumatology Provider 07/02/24 Jelena David OD [address] [place] [address] [place] [address] Ophthalmology 08/30/24 [place] [address] [place] [address] Assigned Neuroscience Provider 09/30/24 Maru Man PA-C [address] [place] [address], [place] [address] Physician Telephone Operator Chief Dermatology 10/03/24 Maru Man PA-C [address] [place] [address] Physician Telephone Operator Chief Dermatology 10/22/24 Jelena David OD [address] [facility] [place] [address] Assigned Surgical Provider 10/31/24 Fabiano Correa, BRYCE [address] [place] [address] Assigned Heart and Vascular Provider 11/30/24 documented as of this encounter
--- OUTSIDE RECORDS SUMMARY | 2024-12-31 03:19 | XMS_ITS | Encounter Summary ---
Author Organization [place] Address [address] [place] [address] Care Team Providers Care Mine Expert Name Role Phone Lita Oseguera Unavailable Unavailable Marija Edgar APRN GENERATION MANAGER Primary Care Provider + Marija Edgar APRN GENERATION MANAGER Unavailable Mynor Broussard MD Unavailable [phone] Keisha Dotson MD Unavailable Galo uBrrell MD Unavailable Unavailable Diana Desir [facility] Unavailable Rain Galaviz PA-C Unavailable Summer Lara MD Unavailable [phone] Tavia Wyatt MD Unavailable Johnny Murillo MD Unavailable Erica Farrell APRN GENERATION MANAGER Unavailable Teresita Bean [facility] Unavailable [phone] Tavia Wyatt MD Unavailable Diana Desir [facility] Unavailable [phone] Rich Barrett MD Unavailable [phone] Neil Kent MD Unavailable Roney Story DPM Unavailable Erica Farrell NUTRITION TEACHER GENERATION MANAGER Unavailable Diana Desir [facility] Unavailable [phone] Jelena David OD Unavailable [phone] Galo Burrell MD Unavailable Unavailable Livan Sharif MD Unavailable + Livan Sharif MD Unavailable + Catherine Cm MD Unavailable + Valery Veronica PA-C Unavailable [phone] Catherine Cm MD Unavailable + Johnny Murillo MD Unavailable [phone] Brea Quinn NUTRITION TEACHER GENERATION MANAGER Unavailable [phone] Brea Quinn NUTRITION TEACHER GENERATION MANAGER Unavailable [phone] Jose Francisco Johnson MD Unavailable Livan Sharif MD Unavailable + IsCatherine hobbs MD Unavailable + Sydnie Martinez RN Unavailable Unavailable Alfonso Renteria MD Unavailable Esha Grimm-C Primary Care Provider Cheng Todd PA-C Unavailable Radha Lomeli NUTRITION TEACHER GENERATION MANAGER Unavailable [phone] Jelena David OD Unavailable Pao Joseph RN Unavailable Unavailable Esha Grimm-C Unavailable JeremíasValery damon PA-C Unavailable [phone] Rey Tay MD Unavailable Rocky Zepeda DO Unavailable Philip Dumont MD Unavailable [phone] Meredith Carrera PA-C Unavailable [phone] Neil Kent MD Unavailable Juan Pablo Emmanuel MD Unavailable [phone] Audrey Waite PA-C Unavailable [phone] Valery Veronica PA-C Unavailable [phone] Herminia Hatch MD Unavailable Jelena David OD Unavailable Juan Pablo Emmanuel MD Unavailable [phone] Maru Man-C Unavailable [phone] Maru ManC Unavailable [phone] Jelena David OD Unavailable Fabiano Correa NP Unavailable [phone] Encounter Details Date Type Department Care Team (Late st Contact Info) Description 07/14/2021 [facility] Medical Advice [address] [address] Lauren Gan, RN Social History [...] in a retirement (including now)? No 08/11/2020 [place] Depression Scale Answer Date Recorded [place] Depression Score 5 01/14/2021 Last EPDS Self Harm Result Not on file 01/14 Education Answer Date Recorded What is the highest level of school you have completed or the highest degree you have received? 12th grade 08/07/2020 Comments No Sex and Gender Information Value Date Recorded Sex Assigned at Female 03/02/2021 5:45 PM CDT Legal Sex Female 4:13 AM HUMAN SERVICES CASE MANAGER Gender Identity Female 03/02/2021 5:45 PM CDT Sexual Orientation Straight 02/28/2020 12 :51 AM CDT COVID-19 Exposure Response Date Recorded In the last month, have you been in contact with someone who was confirmed or suspected to have Coronavirus / COVID-19? Yes 07/15/2021 12:15 PM HUMAN SERVICES CASE MANAGER documented as of this encounter Plan of Treatment Upcoming Encounters Date Type Department Care Team (Latest Contact Info) Description 01/02/2025 1:10 PM CDT Ancillary Procedure [address] [address] Lauren Claudio PA-C [address] [place] [address] 01/17/2025 10:00 AM CDT Appointment [facility] Respiratory [address] [place] [phone] Lauren Claudio PA-C [address] [place] [address] 04/16/2025 11:00 AM CDT Virtual Visit [facility] [address] 4th [place] [phone] Meredith Carrera PA-C [address] [place] [address] documented as of this encounter Visit Diagnoses Not on filedocumented in this encounter Additional Health Concerns Infection Onset Date Last Indicated Resolved Time Rule Out COVID-19 07/13/2021 07/13/2021 07/14/2021 3:04 PM HUMAN SERVICES CASE MANAGER Rule Out COVID-19 07/18/2021 07/18/2021 07/20/2021 1:56 PM HUMAN SERVICES CASE MANAGER COVID-19 07/18/2021 07/18/2021 08/08/2021 11:3 9 PM HUMAN SERVICES CASE MANAGER Rule Out COVID-19 12/18/2021 12/18/2021 12/19/2021 11:34 AM CDT Rule Out COVID-19 02/24/2022 02/24/2022 02/25/2022 1:08 PM CDT Rule Out COVID-19 04/26/2022 04/26/2022 04/26/2022 6:47 AM CDT Rule Out COVID-19 05/17/2022 05/17/2022 05/17/2022 10:20 PM HUMAN SERVICES CASE MANAGER Rule Out COVID-19 06/09/2022 06/09/2022 06/09/2022 9:35 AM HUMAN SERVICES CASE MANAGER COVID-19 06/09/2022 06/09/2022 06/30/2022 11:4 1 PM HUMAN SERVICES CASE MANAGER Rule Out COVID-19 11/10/2022 11/10/2022 [...] as of this encounter Care Teams Mine Expert Relationship Specialty Start Date End Date Marija Edgar APRN GENERATION MANAGER PCP - General Nurse Practitioner 04/30/20 04/14/23 Esha Grimm PA-C [address] [place] [phone] PCP - General Family Medicine 05/04/23 Lita Oseguera Personal Advocate & Liaison (PAL) 02/28/20 03/27/23 Marija Edgar APRN GENERATION MANAGER Assigned PCP 06/08/20 04/29/23 Mynor Broussard MD [address] [place] [address] Assigned Surgical Provider 06/01/20 11/28/21 Keisha Dotson MD [address] [place] [address] Assigned Neuroscience Provider 06/04/20 04/01/23 Galo Burrell MD Assigned Heart and Vascular Provider 10/05/20 04/02/22 [facility] [address] [place] [address] Pharmacist Pharmacist 04/17/21 Rain Galaviz PA-C [address] [place] [address] [address] [place] [address] Physician Ship/Rec/Doc Control Dermatology 04/28/21 Summer Lara MD [address] [place] [address] 932644 Assigned OBGYN Provider 05/31/21 2 Tavia Wyatt MD [address] [place] [address] 524204 Dermatology 07/14/21 Johnny Murillo MD [address] [address] Assigned Musculoskeletal Provider 08/30/21 03/17/22 Erica Farrell APRN GENERATION MANAGER [address] [facility] [address] [place] [address] Nurse Practitioner Cardiovascular Disease 09/09/21 Teresita Bean [facility] [address] [place] [phone] Pharmacist Pharmacist 09/24/21 09/29/21 Tavia Wyatt MD [address] [place], [place] 8287[address] Assigned Surgical Provider 11/29/21 05/07/22 Diana Desir, [facility] [place] [address] Assigned MTM Pharmacist 01/02/22 Rich Barrett MD [facility] [place] [address] Physician Ophthalmology 01/21/22 Neil Kent MD [address] [place], [place] [address]645 Dermatology 02/24/22 Roney Story DPM [address] [facility] [address] [place], [place] 8546[address] Assigned Musculoskeletal Provider 03/20/22 08/13/22 Erica Farrell APRN GENERATION MANAGER [address] [place] [address] Assigned Heart and Vascular Provider 04/03/22 04/16/22 Diana Desir, [facility] [place] [address] Assigned MTM Pharmacist 04/07/22 Jelena David OD [address] [facility] [place] [address] Assigned Surgical Provider 05/08/22 10/08/22 Galo Burrell MD Assigned Heart and Vascular Provider 04/17/22 06/11/22 Livan Sharif MD [address] [place] [address] Cardiovascular Disease 05/14/22 Livan Sharif MD [address] [place] [address] Assigned Heart and Vascular Provider 06/12/22 07/23/22 Catherine Cm MD [address] [place] [address] Cardiovascular Disease 07/21/22 Valery Veronica, PA-C [address] [place] [address] Physician Ship/Rec/Doc Control Dermatology 07/21/22 Catherine Cm MD [address] [place] [address] Assigned Heart and Vascular Provider 07/24/22 11/05/22 Johnny Murillo MD [address] [facility] [address] [place] [address] Assigned Musculoskeletal Provider 08/14/22 10/08/22 Brea Quinn APRN GENERATION MANAGER [address] [place] [address] Nurse Practitioner Dermatology 09/21/22 Brea Quinn APRN GENERATION MANAGER 64[address] [facility] [place] [address] Assigned Surgical Provider 10/09/22 05/01/24 [place] [address] [place] [facility] [address] [place] [address] Assigned Musculoskeletal Provider 10/09/22 05/01/24 Livan Sharif MD [address] [facility] [address] [place] [address] Assigned Heart and Vascular Provider 11/06/22 11/12/22 Catherine Cm MD [address] [facility] [address] [place] [address] Assigned Heart and Vascular Provider 11/13/22 05/27/23 Sydnie Martinez, RN Personal Advocate & Liaison (PAL) Family Medicine 03/28/23 07/31/23 Alfonso Renteria MD [address] [facility] [address] [place] [address] Assigned Neuroscience Provider 04/02/23 09/29/24 Cheng Todd PA-C [address] [place] [address] Assigned PCP 04/30/23 07/15/23 Radha Lomeli APRN GENERATION MANAGER [address] [place], [place] 373265 Assigned Heart and Vascular Provider 05/28/23 11/29/24 Jelena David OD [address] [facility] [place] [address] MD Ophthalmology 06/15/23 Pao Joseph, VJ Personal Advocate & Liaison (PAL) Nurse 08/01/23 11/07/23 Esha Grimm PA-C [address] [place] [phone] Assigned PCP 07/16/23 Valery Veronica PA-C [address] [place] [address] 494985 Physician Ship/Rec/Doc Control Dermatology 09/19/23 Rey Tay MD [address] [place] [address] 709455 Gastroenterology 09/20/23 Rocky Zepeda DO [address] [place] [address] 899665 Physician Gastroenterology 09/20/23 Philip Dumont MD [address] [place] [address] 916545 Physician Ophthalmology 09/22/23 Meredith Carrera PA-C [address] [place] [address] 991345 Assigned Gastroenterology Provider 11/01/23 Neil Kent MD [address] [place] [address] Dermatology 11/02/23 [place] [address] [place] [address] Neurological Surgery 12/26/23 Audrey Waite PA-C [address] [place] [address] Physician Ship/Rec/Doc Control Dermatology 02/28/24 Valery Veronica PA-C [address] [address] Physician Ship/Rec/Doc Control Dermatology 04/10/24 Herminia Hatch MD [address] [place] [address] [id number] Assigned Rheumatology Provider 07/02/24 Jelena David OD [address] [place] [address] [place] [address] Ophthalmology 08/30/24 [place] [address] [place] [address] Assigned Neuroscience Provider 09/30/24 Maru Man PA-C [address] [place] [address] Physician Ship/Rec/Doc Control Dermatology 10/03/24 Maru Man PA-C [address] [place] [address] Physician Ship/Rec/Doc Control Dermatology 10/22/24 Jelena David OD [address] [facility] [place] [address] Assigned Surgical Provider 10/31/24 Fabiano Correa NP [address] [place] [address] Assigned Heart and Vascular Provider 11/30/24 documented as of this encounter
--- OUTSIDE RECORDS SUMMARY | 2024-12-31 03:19 | XMS_ITS | Clinical Summary ---
Author Organization [facility] Address [facility] [place] [address] Care Team Providers Care Senior Software Manager Name Role Phone Clinic, No Pcp Or Unavailable Unavailable Esha Grimm PA-C Primary Care Provider [phone] Allergies Active Allergy Reactions Criticality Noted Date Comments Vancomycin Other - Describe In Comment Field Medications biotin-silicon aabs-G-wcomgayj 3,000 mcg -100 mg-50 mg TbER Take [...] on file Legal Sex Female 2:29 PM SURVEILLANCE OFFICER Gender Identity Not on file Sexual Orientation Not on file Obstetrics History Last Filed Vital Signs Vital Sign Reading Time Taken Comments Blood Pressure 111/58 08/28/2024 3:42 PM SURVEILLANCE OFFICER Pulse 72 08/28/2024 3:42 PM SURVEILLANCE OFFICER Temperature 36.4 C (97.5 F) 08/28/2024 3:42 PM SURVEILLANCE OFFICER Respiratory Rate 15 08/28/2024 3:42 PM SURVEILLANCE OFFICER Oxygen Saturation 99% 08/28/2024 3:42 PM SURVEILLANCE OFFICER Inhaled Oxygen Concentration - - Weight 90.7 kg (200 lb) 08/28/2024 3:42 PM SURVEILLANCE OFFICER Height 166.5 cm (5' 5.55) 08/31/2018 11:[address] Body Mass Index - - Plan of Treatment Upcoming Encounters Date Type Department Care Team (Late st Contact Info) Description 03/28/2025 2:00 PM CDT Office Visit [facility] [address] [place] [address] Osiris Tomlinson MBBS [address] [facility] [address] [place] [address] Health Maintenance Due Date Last Done Comments [...] ANTI HIV 1/2 Routine 08/28/2024 4:58 PM SURVEILLANCE OFFICER Routine screening for STI (sexually transmitted infection) ANTI HCV Routine 08/28/2024 4:58 PM SURVEILLANCE OFFICER Routine screening for STI (sexually transmitted infection) GC CHLAMYDIA TRACH PROBE Routine 08/28/2024 4:35 PM SURVEILLANCE OFFICER Routine screening for STI (sexually transmitted infection) from Last 3 Months or Most Recently Relevant to Health Maintenance Results * ANTI HCV [09561.2] (08/28/2024 4:58 PM SURVEILLANCE OFFICER) HEPATITIS C ANTIBODY NON-REACTI VE NON-REACT TAE [email or web address] Comment: HCV antibody was non-reactive. There is no laboratory evidence of HCV infection. In most cases, no further action is required. However, if recent HCV exposure is suspected, a test for HCV RNA (test code 63995) is suggested. For additional information please refer to http://[employer]..KneoWorld/faq/BNV88k6 (This link is being provided for informational/ educational purposes only.) Blood BLOOD SPECIMEN / Unknown 08/28/2024 4:58 PM SURVEILLANCE OFFICER 08/28/2024 4:58 PM SURVEILLANCE OFFICER Ernestina Toribio MD SEND OUTS Final Result VSS Monitoring [facility] [address] [place] [address], [facility] [address] [place] [address] * ANTI HIV 1/2 [38931.0] (08/28/2024 4:58 PM SURVEILLANCE OFFICER) HIV AG/AB, 4TH GEN NON-REACT TAE NON-REACT TAE [email or web address] Comment: HIV-1 antigen and HIV-1/HIV-2 antibodies were [...] purpose. For additional information please refer to http://education.KneoWorld/faq/QQC201 (This link is being provided for informational/ educational purposes only.) The performance of this assay has not been clinically validated in patients less than 2 years old. Blood BLOOD SPECIMEN / Unknown 08/28/2024 4:58 PM SURVEILLANCE OFFICER 08/28/2024 4:58 PM SURVEILLANCE OFFICER Ernestina Toribio MD SEND OUTS Final Result Performing Organization Address [facility] Co de Phone Number [employer] Monitoring [facility] [address] [place] [address], [facility] [address] [place] [address] * Vaginal GC CHLAMYDIA TRACH PROBE (08/28/2024 4:35 PM SURVEILLANCE OFFICER) [facility] CHLAMYDIA PROBE Negative 11:45 AM SURVEILLANCE OFFICER [facility] TRAL LABORATORY N GONORRHOEAE PROBE Negative 08/29/2024 11:45 AM SURVEILLANCE OFFICER [facility] TR[facility] LABOR[facility]ORY Other VAGINAL SWAB / Unknown Non-Blood / Unknown 08/28/2024 4:35 PM SURVEILLANCE OFFICER 08/28/2024 4:36 PM SURVEILLANCE OFFICER Ernestina Toribio MD MICROBIOLOGY Final Result Performing Organization Address City/[facility] Co de Phone Number [facility] [address] [place] [address], from Last 3 Months or Most Recently Relevant to Health Maintenance Insurance [facility] [place] Care Teams Senior Software Manager Relationship Specialty Start Date End Date Esha Grimm PAUcheC [address] [place] [phone] PCP - General Physician Chief Of Staff Doctor 12/28/24 Clinic, No Pcp Or . 03/25/24
--- OUTSIDE RECORDS SUMMARY | 2024-12-31 03:19 | XMS_ITS | Encounter Summary ---
Author Organization [facility] Address [address] [place] [address] Care Team Providers Care Pit And Auxiliaries Supervisor Name Role Phone Lita Oseguera Unavailable Unavailable Marija Edgar APRN TANK SETTER HELPER Primary Care Provider + Marija Edgar APRN TANK SETTER HELPER Unavailable Mynor Broussard MD Unavailable [phone] Keisha Dotson MD Unavailable Galo Burrell MD Unavailable Unavailable Diana Desir [facility] Unavailable Rain Galaviz PA-C Unavailable Summer Lara MD Unavailable [phone] Tavia Wyatt MD Unavailable Johnny Murillo MD Unavailable Erica Farrell APRN TANK SETTER HELPER Unavailable Teresita Bean [facility] Unavailable Tavia Wyatt MD Unavailable Diana Desir [facility] Unavailable Rich Barrett MD Unavailable [phone] Neil [place] MD Unavailable Roney Story DPM Unavailable Erica Farrell LIVER TRIMMER TANK SETTER HELPER Unavailable Diana Desir [facility] Unavailable [phone] Jelena David OD Unavailable Galo Burrell MD Unavailable Unavailable Livan Sharif MD Unavailable + Livan Sharif MD Unavailable + Catherine Cm MD Unavailable + Valery Veronica PA-C Unavailable [phone] Catherine Cm MD Unavailable + Johnny Murillo MD Unavailable [phone] Brea Quinn LIVER TRIMMER TANK SETTER HELPER Unavailable [phone] Brea Quinn LIVER TRIMMER TANK SETTER HELPER Unavailable [phone] Jose Francisco Johnson MD Unavailable Livan Sharif MD Unavailable + IsCatherine hobbs MD Unavailable + Sydnie Martinez RN Unavailable Unavailable Alfonso Renteria MD Unavailable Esha Grimm-C Primary Care Provider Cheng Todd PA-C Unavailable Radha Lomeli LIVER TRIMMER TANK SETTER HELPER Unavailable [phone] Jelena David OD Unavailable Pao Joseph RN Unavailable Unavailable Esha Grimm-C Unavailable [phone] JeremíasValery damon PA-C Unavailable [phone] Rey Tay MD Unavailable Rocky Zepeda DO Unavailable Philip Dumont MD Unavailable [phone] Meredith Carrera PA-C Unavailable [phone] Neil [place] MD Unavailable Juan Pablo Emmanuel MD Unavailable [phone] Audrey Waite PA-C Unavailable [phone] Valery Veronica PA-C Unavailable [phone] Herminia [place] MD Unavailable Jelena David OD Unavailable Juan Pablo Emmanuel MD Unavailable [phone] Maru Man-C Unavailable [phone] Maru Man-C Unavailable [phone] Jelena David OD Unavailable Fabiano Correa NP Unavailable [phone] Encounter Details Date Type Department Care Team (Late st Contact Info) Description 08/04/[address] [address] [facility] Social History Tobacco Use Types Packs/Day Years [...] do you attend chur or latter-day services? More than 4 times per year [...] in a fdc (including now)? No 08/11/2020 [place] Depression Scale Answer Date Recorded [place] Depression Score 5 01/14/2021 Last EPDS Self Harm Result Not on file 01/14 Education Answer Date Recorded What is the highest level of school you have completed or the highest degree you have received? 12th grade 08/07/2020 Comments No Sex and Gender Information Value Date Recorded Sex Assigned at Female 03/02/2021 5:45 PM CDT Legal Sex Female 4:13 AM TIMBER SUPERVISOR Gender Identity Female 03/02/2021 5:45 PM CDT Sexual Orientation Straight 02/28/2020 12 :51 AM CDT COVID-19 Exposure Response Date Recorded In the last month, have you been in contact with someone who was confirmed or suspected to have Coronavirus / COVID-19? No / Unsure 08/03/2021 2:24 PM TIMBER SUPERVISOR documented as of this encounter Plan of Treatment Upcoming Encounters Date Type Department Care Team (Latest Contact Info) Description 01/02/2025 1:10 PM CDT Ancillary Procedure [address] [address] Lauren Claudio PA-C [address] [place] [address] 01/17/2025 10:00 AM CDT Appointment [facility] Respiratory [address] [place] [phone] Lauren Claudio PA-C [address] [place] [address] 04/16/2025 11:00 AM CDT Virtual Visit [facility] [address] 4th [place] [phone] Meredith Carrera PA-C [address]09 [place] [address] documented as of this encounter Visit Diagnoses Not on filedocumented in this encounter Additional Health Concerns Infection Onset Date Last Indicated Resolved Time COVID-19 07/18/2021 07/18/2021 08/08/2021 11:3 9 PM TIMBER SUPERVISOR Rule Out COVID-19 12/18/2021 12/18/2021 12/19/2021 11:34 AM CDT Rule Out COVID-19 02/24/2022 02/24/2022 02/25/2022 1:08 PM CDT Rule Out COVID-19 04/26/2022 04/26/2022 04/26/2022 6:47 AM CDT Rule Out COVID-19 05/17/2022 05/17/2022 05/17/2022 10:20 PM TIMBER SUPERVISOR Rule Out COVID-19 06/09/2022 06/09/2022 06/09/2022 9:35 AM TIMBER SUPERVISOR COVID-19 06/09/2022 06/09/2022 06/30/2022 11:4 1 PM TIMBER SUPERVISOR Rule Out COVID-19 11/10/2022 11/10/2022 11/11/2022 [...] documented as of this encounter Care Teams Pit And Auxiliaries Supervisor Relationship Specialty Start Date End Date Marija Edgar APRN TANK SETTER HELPER PCP - General Nurse Practitioner 04/30/20 04/14/23 Esha Grimm PA-C [address] [place] [address] PCP - General Family Medicine 05/04/23 Lita Oseguera Personal Advocate & Liaison (PAL) 02/28/20 03/27/23 Marija Edgar APRN TANK SETTER HELPER Assigned PCP 06/08/20 04/29/23 Mynor Broussard MD [address] [address] Assigned Surgical Provider 06/01/20 11/28/21 Keisha Dotson MD [address] [place] [address] Assigned Neuroscience Provider 06/04/20 04/01/23 Galo Burrell MD Assigned Heart and Vascular Provider 10/05/20 04/02/22 Diana Desir, [facility] [address] [place] [address] Pharmacist Pharmacist 04/17/21 Rain Galaviz PA-C [address] [place] [address] [place] [address] Physician Power Tong Operator Dermatology 04/28/21 Summer Lara MD [address] [place] [address] 382274 Assigned OBGYN Provider 05/31/21 9 2 Tavia Wyatt MD [address] [place] [address] 023644 Dermatology 07/14/21 Johnny Murillo MD [address] [place] [address] R200 [place] [address] Assigned Musculoskeletal Provider 08/30/21 03/17/22 Erica Farrell APRN TANK SETTER HELPER [address] [facility] [address] [place] 584455 Nurse Practitioner Cardiovascular Disease 09/09/21 Teresita Bean, [facility] [address] [place] [id number] Pharmacist Pharmacist 09/24/21 09/29/21 Tavia Wyatt MD [address] [place] [address] Assigned Surgical Provider 11/29/21 05/07/22 Diana Desir [facility] [address] [place] [address] Assigned MTM Pharmacist 01/02/22 Rich Barrett MD [address] [place] [address] Physician Ophthalmology 01/21/22 Neil [place] MD 500 [place], [place] 293755 Dermatology 02/24/22 [place] [address] [facility] [address] [place], [place] 492217 Assigned Musculoskeletal Provider 03/20/22 08/13/22 Erica Farrell APRN TANK SETTER HELPER 1700 [place] [address] Assigned Heart and Vascular Provider 04/03/22 04/16/22 Diana Desir [facility] [address] [place] [address] Assigned MTM Pharmacist 04/07/22 Jelena David OD [address] [facility] [place] [address] Assigned Surgical Provider 05/08/22 10/08/22 Galo Burrell MD Assigned Heart and Vascular Provider 04/17/22 06/11/22 Livan Sharif MD [address] [place] [address] Cardiovascular Disease 05/14/22 Livan Sharif MD [address] [place], [place] 371285 Assigned Heart and Vascular Provider 06/12/22 07/23/22 Catherine Cm MD [address] [place] [address] Cardiovascular Disease 07/21/22 Valery Veronica PAUcheC [address] [place] [address] [phone] Physician Power Tong Operator Dermatology 07/21/22 Catherine Cm MD [address] [place] [address] Assigned Heart and Vascular Provider 07/24/22 11/05/22 Johnny Murillo [address] [facility] [address] [address] Assigned Musculoskeletal Provider 08/14/22 10/08/22 Brea Quinn APRN TANK SETTER HELPER [address] [place] [address] 133085 Nurse Practitioner Dermatology 09/21/22 Brea Quinn APRN TANK SETTER HELPER [address] [place] [address] Assigned Surgical Provider 10/09/22 05/01/24 [place] [address] [place] [address] Assigned Musculoskeletal Provider 10/09/22 05/01/24 Livan Sharif MD [address] [place] [address] Assigned Heart and Vascular Provider 11/06/22 11/12/22 Catherine Cm MD [address] [place] [address] Assigned Heart and Vascular Provider 11/13/22 05/27/23 JuanSydnie malik, RN Personal Advocate & Liaison (PAL) Family Medicine 03/28/23 07/31/23 Alfonso Renteria MD 5775 [facility] 200 [place] [address] Assigned Neuroscience Provider 04/02/23 09/29/24 Cheng Todd PA-C [address] [place] [address] [id number] Assigned PCP 04/30/23 07/15/23 Radha Lomeli APRN TANK SETTER HELPER [address] [place] [address] Assigned Heart and Vascular Provider 05/28/23 11/29/24 Jelena David OD [address] [facility] [address] MD Ophthalmology 06/15/23 Pao Joseph, RN Personal Advocate & Liaison (PAL) Nurse 08/01/23 11/07/23 Esha Grimm PA-C [address] [place] [phone] Assigned PCP 07/16/23 Valery Veronica PA-C [address] [place] [address] 951555 Physician Power Tong Operator Dermatology 09/19/23 Rey Tay MD [address] [place] [address] 228605 MD Gastroenterology 09/20/23 Rocky Zepeda DO [address] [place] [address] 527255 Physician Gastroenterology 09/20/23 Philip Dumont MD [address] [place] [address] 261445 Physician Ophthalmology 09/22/23 Meredith Carerra PA-C [address] [place] [address] 581075 Assigned Gastroenterology Provider 11/01/23 Neil [place] MD [address] [address] Dermatology 11/02/23 [place] [address] [place] [address] Neurological Surgery 12/26/23 Audrey [place] PA-C 500 [place] [address] Physician Power Tong Operator Dermatology 02/28/24 Valery Veronica PA-C [address] [place] [address] Physician Power Tong Operator Dermatology 04/10/24 Herminia [place] MD [address] [place] [address] [id number] Assigned Rheumatology Provider 07/02/24 Jelena David, SONJA [address] [place] [address] [place] [address] Ophthalmology 08/30/24 [place] [address] [place] [address] Assigned Neuroscience Provider 09/30/24 Maru Man PA-C [address] [place] [address] Physician Power Tong Operator Dermatology 10/03/24 Maru Man PA-C [address] [place] [address] Physician Power Tong Operator Dermatology 10/22/24 Jelena David OD [address] [place] [address] [place] [address] Assigned Surgical Provider 10/31/24 Fabiano Correa NP [address] [place] [address] Assigned Heart and Vascular Provider 11/30/24 documented as of this encounter
--- OUTSIDE RECORDS SUMMARY | 2024-12-31 03:19 | XMS_ITS | Encounter Summary ---
Author Organization [facility] Address [address] [place] [address] Care Team Providers Care Stencil Cutter Machine Name Role Phone Lita Oseguera Unavailable Unavailable Marija Edgar APRN INTERACTIVE WEB DEVELOPER Primary Care Provider + Marija Edgar APRN INTERACTIVE WEB DEVELOPER Unavailable [phone] Keisha Dotson MD Unavailable Diana Desir [facility] Unavailable [phone] Rain Galaviz PA-C Unavailable Tavia Wyatt MD Unavailable Erica Farrell APRN INTERACTIVE WEB DEVELOPER Unavailable Rich Barrett MD Unavailable [phone] Neil [place] MD Unavailable Diana Desir [facility] Unavailable Livan Sharif MD Unavailable Catherine Cm MD Unavailable + Valery Veronica PA-C Unavailable [phone] Catherine Cm MD Unavailable + Brea Quinn MARKETING SERVICES SPECIALIST INTERACTIVE WEB DEVELOPER Unavailable [phone] Brea Quinn MARKETING SERVICES SPECIALIST INTERACTIVE WEB DEVELOPER Unavailable [phone] Jose Francisco Johnson MD Unavailable Livan Sharif MD Unavailable ChivoraynaCatherine boothe MD Unavailable + Sydnie Martinez RN Unavailable Unavailable Alfonso Renteria MD Unavailable Esha Grimm PA-C Primary Care Provider Cheng Todd PA-C Unavailable [phone] Radha Lomeli MARKETING SERVICES SPECIALIST INTERACTIVE WEB DEVELOPER Unavailable [phone] Jelena David OD Unavailable [phone] Pao Joseph RN Unavailable Unavailable Esha Grimm PA-C Unavailable [phone] Valery Veronica PA-C Unavailable Rey Tay MD Unavailable Rocky Zepeda DO Unavailable Philip Dumont MD Unavailable [phone] Meredith Carrera PA-C Unavailable [phone] Neil [place] MD Unavailable Juan Pablo Emmanuel MD Unavailable Audrey [place] PA-C Unavailable [phone] Valery Veronica PA-C Unavailable Herminia [place] MD Unavailable Jelena David OD Unavailable [phone] Juan Pablo Emmanuel MD Unavailable Maru Man PA-C Unavailable [phone] Maru Man PA-C Unavailable [phone] Jelena David OD Unavailable Fabiano Correa RESULTS ENGINEER Unavailable [phone] Reason for Visit * Reason Onset Date Comments MyChart Communication 10/27/2022 Encounter Details Date Type Department Care Team (Late st Contact Info) Description 10/27/2022 MyC Medical Advice [address] [place] [address] Brea Quinn, MARKETING SERVICES SPECIALIST INTERACTIVE WEB DEVELOPER 64[address] [facility] [place] [address] Aristos Logich[employer] Communication (/) Social History Tobacco Use Types [...] How often do you attend jewish or confucianism serv ices? Never 09/22/2021 Do [...] Answer Date Recorded PHQ-2 Score 1 10/11/2022 [facility] - [...] in a halfway (including now)? No 09/22/2021 [place] Depression Scale Answer Date Recorded [place] Depression Score 5 01/14/2021 Last EPDS Self Harm Result Not on file 01/14 Education Answer Date Recorded What is the highest level of school you have completed or the highest degree you have received? 12th grade 08/07/2020 Comments No Sex and Gender Information Value Date Recorded Sex Assigned at Female 03/02/2021 5:45 PM CDT Legal Sex Female 4:13 AM DIETARY AIDE COOK Gender Identity Female 03/02/2021 5:45 PM [...] Letha Driver RN [facility] Gloria Alvarenga [phone] documented in this encounter Plan of Treatment Upcoming Encounters Date Type Department Care Team (Latest Contact Info) Description 01/02/2025 1:10 PM CDT Ancillary Procedure [address] [phone] Lauren Claudio PA-C [address] [place] [address] 01/17/2025 10:00 AM CDT Appointment [facility] Respiratory [address] [place] [address] Lauren Claudoi PA-C [address] [place] [address] 04/16/2025 11:00 AM CDT Virtual Visit [facility] [address] [place] [phone] Meredith Carrera PA-C [address] [place] [address] documented as of this encounter Visit Diagnoses [...] documented as of this encounter Care Teams Stencil Cutter Machine Relationship Specialty Start Date End Date Marija Edgar APRN CNP PCP - General Nurse Practitioner 04/30/20 04/14/23 Esha Grimm PA-C [address] [facility] [place] [phone] PCP - General Family Medicine 05/04/23 Lita Oseguera Personal Advocate & Liaison (PAL) 02/28/20 03/27/23 Marija Edgar APRN INTERACTIVE WEB DEVELOPER Assigned PCP 06/08/20 04/29/23 Keisha Dotson MD [address]09 [place], [place] 621145 Assigned Neuroscience Provider 06/04/20 04/01/23 Diana Desir, [facility] [address] [place], [place] 320726 Pharmacist Pharmacist 04/17/21 Rain Galaviz PA-C [address] [place] [address] [address] [place] [address] Physician Manager Actuarial Dermatology 04/28/21 Tavia Wyatt MD [address] [place] [address] [address] [place] [address] Dermatology 07/14/21 Erica Farrell APRN INTERACTIVE WEB DEVELOPER [address] [place] 033355 Nurse Practitioner Cardiovascular Disease 09/09/21 Rich Barrett MD [address] [place] 045955 Physician Ophthalmology 01/21/22 Neil [place] MD 500 [place], [place] 272785 Dermatology 02/24/22 Diana Desir, [facility] [address] [place], [place] 942066 Assigned MTM Pharmacist 04/07/22 Livan Sharif MD [address] [facility] [address] [place] 371645 Cardiovascular Disease 05/14/22 Catherine Cm MD 6[address] [facility] [address] [place] 809325 Cardiovascular Disease 07/21/22 Valery Veronica, PA-C [address] [place], [place] 292305 Physician Manager Actuarial Dermatology 07/21/22 Catherine Cm MD [address] [facility] [address] [place] 329645 Assigned Heart and Vascular Provider 07/24/22 11/05/22 Brea Quinn APRN INTERACTIVE WEB DEVELOPER 500 [place], [place] 322385 Nurse Practitioner Dermatology 09/21/22 Brea Quinn APRN INTERACTIVE WEB DEVELOPER 6401 [facility] [place] 627902 Assigned Surgical Provider 10/09/22 05/01/24 [place] [address] [address] [facility] [place] [address] Assigned Musculoskeletal Provider 10/09/22 05/01/24 Livan Sharif MD [address] [place] 657615 Assigned Heart and Vascular Provider 11/06/22 11/12/22 Catherine Cm MD [address] [place] [address] Assigned Heart and Vascular Provider 11/13/22 05/27/23 Sydnie Martinez RN Personal Advocate & Liaison (PAL) Family Medicine 03/28/23 07/31/23 Alfonso Renteria MD 5775 [facility] 200 [place] [address] Assigned Neuroscience Provider 04/02/23 09/29/24 Cheng Todd PA-C [address] [place] [address] [phone] Assigned PCP 04/30/23 07/15/23 Radha Lomeli APRN INTERACTIVE WEB DEVELOPER [address] [place] [address] Assigned Heart and Vascular Provider 05/28/23 11/29/24 Jelena David OD [address] [place] [address] MD Ophthalmology 06/15/23 Pao Joseph, RN Personal Advocate & Liaison (PAL) Nurse 08/01/23 11/07/23 Esha Grimm PA-C [address] [place] [address] Assigned PCP 07/16/23 Valery Veronica PA-C [address] [place] [address] 455405 Physician Manager Actuarial Dermatology 09/19/23 Rey Tay MD [address] [place] [address] 658555 MD Gastroenterology 09/20/23 Rocky Zepeda DO [address] [place] [address] 747475 Physician Gastroenterology 09/20/23 Philip Dumont MD [address] [place] [address] 827475 Physician Ophthalmology 09/22/23 Meredith Carrera PA-C [address] [place] [address] 887455 Assigned Gastroenterology Provider 11/01/23 Neil [place] MD [address] [place] [address] 698480 Dermatology 11/02/23 [place] [address] [place] [address] Neurological Surgery 12/26/23 Audrey [place] PA-C 500 [place] [address] Physician Manager Actuarial Dermatology 02/28/24 Valery Veronica PA-C [address] [place] [address] Physician Manager Actuarial Dermatology 04/10/24 Herminia [place] MD [address] [place] [address] [id number] Assigned Rheumatology Provider 07/02/24 Jelena David OD [address] [place] [address] [place] [address] Ophthalmology 08/30/24 [place] [address] [place] [address] Assigned Neuroscience Provider 09/30/24 Maru Man PA-C [address] [place] [address] Physician Manager Actuarial Dermatology 10/03/24 Maru Man PA-C [address] [place] [address] Physician Manager Actuarial Dermatology 10/22/24 Jelena David OD [address] [place] [address] [place] [address] Assigned Surgical Provider 10/31/24 Fabiano Correa, RESULTS ENGINEER [address] [place] [address] Assigned Heart and Vascular Provider 11/30/24 documented as of this encounter
--- OUTSIDE RECORDS SUMMARY | 2024-12-31 03:19 | XMS_ITS | Encounter Summary ---
Author Organization [place] Address [address] [place] [address] Care Team Providers Care Silk Screen Cutter Name Role Phone Lita Oseguera Unavailable Unavailable Marija Edgar APRN DRYING FRAME OPERATOR Primary Care Provider + Marija Edgar APRN DRYING FRAME OPERATOR Unavailable Mynor Broussard MD Unavailable [phone] Keisha Dotson MD Unavailable Galo Burrell MD Unavailable Unavailable Diana Desir [facility] Unavailable Rain Galaviz PA-C Unavailable [phone] Summer Lara MD Unavailable [phone] Tavia Wyatt MD Unavailable Johnny Murillo MD Unavailable Erica Farrell APRN DRYING FRAME OPERATOR Unavailable Teresita Bean [facility] Unavailable Tavia Wyatt MD Unavailable Diana Desir [facility] Unavailable Rich Barrett MD Unavailable [phone] Neil Kent MD Unavailable Roney Story DPM Unavailable Erica Farrell MULTIMEDIA PROJECT MANAGER DRYING FRAME OPERATOR Unavailable Diana Desir [facility] Unavailable [phone] Jelena David OD Unavailable Galo Burrell MD Unavailable Unavailable Livan Sharif MD Unavailable + Livan Sharif MD Unavailable + Catherine Cm MD Unavailable + Valery Veronica PA-C Unavailable [phone] Catherine Cm MD Unavailable + Johnny Murillo MD Unavailable [phone] Brea Quinn MULTIMEDIA PROJECT MANAGER DRYING FRAME OPERATOR Unavailable [phone] Brea Quinn MULTIMEDIA PROJECT MANAGER DRYING FRAME OPERATOR Unavailable [phone] Jose Francisco Johnson MD Unavailable Livan Sharif MD Unavailable + IsCatherine hobbs MD Unavailable + Sydnie Martinez RN Unavailable Unavailable Alfonso Renteria MD Unavailable Esha Grimm-C Primary Care Provider Cheng Todd PA-C Unavailable Radha Lomeli MULTIMEDIA PROJECT MANAGER DRYING FRAME OPERATOR Unavailable [phone] Jelena David OD Unavailable Pao Joseph RN Unavailable Unavailable Esha Grimm-C Unavailable [phone] JeremíasValery damon PA-C Unavailable [phone] Rey Tay MD Unavailable Rocky Zepeda DO Unavailable Philip Dumont MD Unavailable Meredith Carrera PA-C Unavailable [phone] Neil Kent MD Unavailable Juan Pablo Emmanuel MD Unavailable Audrey Waite PA-C Unavailable [phone] Valery Veronica PA-C Unavailable Herminia Hatch MD Unavailable Jelena David OD Unavailable Juan Pablo Emmanuel MD Unavailable Maru Man-C Unavailable [phone] Maru Man-C Unavailable [phone] Jelena David OD Unavailable Fabiano Correa NP Unavailable Encounter Details Date Type Department Care Team (Late st Contact Info) Description 06/03/2021 [facility] [address] [address] Diana Desir, [facility] [address] [place] [address] Social History Tobacco Use Types Packs/Day Years [...] Answer Date Recorded PHQ-2 Score 0 04/02/2021 [facility] [place] of Occupat ional Health - Occupational Stress [...] in a prison (including now)? No 08/11/2020 [place] Depression Scale [...] PM CDT Legal Sex Female 4:13 AM DECK ENGINEER Gender Identity Female 03/02/2021 5:45 PM [...] Description 01/02/2025 1:10 PM CDT Ancillary Procedure [facility] [address] [place] [address] Lauren Claudio PA-C [address] [place] [address] 01/17/2025 10:00 AM CDT Appointment [facility] [address] [place] [phone] Lauren Claudio PA-C [address] [place] [address] 04/16/2025 11:00 AM CDT Virtual Visit [facility] [address] [place] [phone] Meredith Carrera PA-C [address] [place] [address] documented as of this encounter Visit Diagnoses Not on filedocumented in this encounter Additional Health Concerns Infection Onset Date Last Indicated Resolved Time Rule Out COVID-19 07/13/2021 07/13/2021 07/14/2021 3:04 PM DECK ENGINEER Rule Out COVID-19 07/18/2021 07/18/2021 07/20/2021 1:56 PM DECK ENGINEER COVID-19 07/18/2021 07/18/2021 08/08/2021 11:3 9 PM DECK ENGINEER Rule Out COVID-19 12/18/2021 12/18/2021 12/19/2021 11:34 AM CDT Rule Out COVID-19 02/24/2022 02/24/2022 02/25/2022 1:08 PM CDT Rule Out COVID-19 04/26/2022 04/26/2022 04/26/2022 6:47 AM CDT Rule Out COVID-19 05/17/2022 05/17/2022 05/17/2022 10:20 PM DECK ENGINEER Rule Out COVID-19 06/09/2022 06/09/2022 06/09/2022 9:35 AM DECK ENGINEER COVID-19 06/09/2022 06/09/2022 06/30/2022 11:4 1 PM DECK ENGINEER Rule Out COVID-19 11/10/2022 11/10/2022 11/11/2022 [...] documented as of this encounter Care Teams Silk Screen Cutter Relationship Specialty Start Date End Date Marija Edgar APRN DRYING FRAME OPERATOR PCP - General Nurse Practitioner 04/30/20 04/14/23 Esha Grimm PA-C [address] [place] [phone] PCP - General Family Medicine 05/04/23 Lita Oseguera Personal Advocate & Liaison (PAL) 02/28/20 03/27/23 Marija Edgar APRN DRYING FRAME OPERATOR Assigned PCP 06/08/20 04/29/23 Mynor Broussard MD [address] [facility] [address] 500 [place] [address] Assigned Surgical Provider 06/01/20 11/28/21 Keisha Dotson MD 909 [place], [place] 271845 Assigned Neuroscience Provider 06/04/20 04/01/23 Galo Burrell MD Assigned Heart and Vascular Provider 10/05/20 04/02/22 Diana Desir, [facility] 3033 [place] [address] Pharmacist Pharmacist 04/17/21 Rain Galaviz PA-C [address] [facility] [address] [place] [address] Physician Sanitary Inspector Dermatology 04/28/21 Summer Lara MD [address] [place] [address] Assigned OBGYN Provider 05/31/21 2 Tavia Wyatt MD [address] [place], [place] 3[address] Dermatology 07/14/21 Johnny Murillo MD [address] [facility] [address] [place] [address] Assigned Musculoskeletal Provider 08/30/21 03/17/22 Erica Farrell APRN DRYING FRAME OPERATOR [address] [facility] [address] [place], [place] 69[address] Nurse Practitioner Cardiovascular Disease 09/09/21 Teresita Bean [facility] [address] [place] [address] Pharmacist Pharmacist 09/24/21 09/29/21 Tavia Wyatt MD [address] [place] [address] Assigned Surgical Provider 11/29/21 05/07/22 Diana Desir, [facility] [address] [place] [address] Assigned MTM Pharmacist 01/02/22 Rich Barrett MD 3033 [place] [address] Physician Ophthalmology 01/21/22 Neil Kent MD 500 [place] [address] Dermatology 02/24/22 Roney Story DPM [address] [facility] 300 [place] [address] Assigned Musculoskeletal Provider 03/20/22 08/13/22 Erica Farrell APRN DRYING FRAME OPERATOR 1700 [place] [address] Assigned Heart and Vascular Provider 04/03/22 04/16/22 [facility] [address] [place] [address] Assigned MTM Pharmacist 04/07/22 Frankie Jelena GarciaSONJA [address] [facility] [address] Assigned Surgical Provider 05/08/22 10/08/22 Galo Burrell MD Assigned Heart and Vascular Provider 04/17/22 06/11/22 Livan Sharif MD [address] [place], [place] [address] Cardiovascular Disease 05/14/22 Livan Sharif MD [address] [place] 308175 Assigned Heart and Vascular Provider 06/12/22 07/23/22 Cathreine Cm MD [address] [place] 7[address]65 Cardiovascular Disease 07/21/22 Valery Veronica, PA-C 909 [place], [place] 946555 Physician Sanitary Inspector Dermatology 07/21/22 Catherine Cm MD [address] [place] 028135 Assigned Heart and Vascular Provider 07/24/22 11/05/22 Johnny Murillo MD [address] [address] Assigned Musculoskeletal Provider 08/14/22 10/08/22 Brea Quinn APRN DRYING FRAME OPERATOR 500 [place] [address] Nurse Practitioner Dermatology 09/21/22 Brea Quinn APRN DRYING FRAME OPERATOR 6401 [place] [address] Assigned Surgical Provider 10/09/22 05/01/24 [place] [address] [facility] [address] [place] [address] Assigned Musculoskeletal Provider 10/09/22 05/01/24 Livan Sharif MD 6[address] [facility] [address] [place] [address] Assigned Heart and Vascular Provider 11/06/22 11/12/22 Catherine Cm MD 6405 [facility] [address] [place] [address] Assigned Heart and Vascular Provider 11/13/22 05/27/23 Sydnie Martinez RN Personal Advocate & Liaison (PAL) Family Medicine 03/28/23 07/31/23 Alfonso Renteria MD [address] [facility] 200 [place], [place] 270006 Assigned Neuroscience Provider 04/02/23 09/29/24 Cheng Todd PA-C [address] [place] [address] [id number] Assigned PCP 04/30/23 07/15/23 Radha Lomeli APRN DRYING FRAME OPERATOR [address] [facility] [address] [place] [address] Assigned Heart and Vascular Provider 05/28/23 11/29/24 Jelena David OD [address] [facility] [address] MD Ophthalmology 06/15/23 Pao Joseph, VJ Personal Advocate & Liaison (PAL) Nurse 08/01/23 11/07/23 Esha Grimm PA-C [address] [place] [phone] Assigned PCP 07/16/23 Valery Veronica PA-C [address] [place] [address] 336195 Physician Sanitary Inspector Dermatology 09/19/23 Rey Tay MD [address] [place] [address] 621785 Gastroenterology 09/20/23 Rocky Zepeda DO [address] [place] [address] 663225 Physician Gastroenterology 09/20/23 Philip Dumont MD [address] [place] [address] 882575 Physician Ophthalmology 09/22/23 Meredith Carrera PA-C [address] [place] [address] Assigned Gastroenterology Provider 11/01/23 Neil Kent MD [address] [place] [address] Dermatology 11/02/23 [place] [address] [place] [address] Neurological Surgery 12/26/23 Audrey Waite PA-C 500 [place] [address] Physician Sanitary Inspector Dermatology 02/28/24 Valery Veronica PA-C [address]29 [address] [place] [address] Physician Sanitary Inspector Dermatology 04/10/24 Herminia Hatch MD [address] [place] [address] [id number] Assigned Rheumatology Provider 07/02/24 Jelena David OD [address] [place] [address] [place] [address] Ophthalmology 08/30/24 [place] [address] [place] [address] Assigned Neuroscience Provider 09/30/24 Maru Man PA-C [address] [place] [address] Physician Sanitary Inspector Dermatology 10/03/24 Maru Man PA-C [address] [place] [address] Physician Sanitary Inspector Dermatology 10/22/24 Jelena David OD [address] [facility] [address] Assigned Surgical Provider 10/31/24 Fabiano Correa NP [address] [place] [address] Assigned Heart and Vascular Provider 11/30/24 documented as of this encounter
--- OUTSIDE RECORDS SUMMARY | 2024-12-31 03:19 | XMS_ITS | Encounter Summary ---
Author Organization [place] Address [address] [place] [address] Care Team Providers Care Hydrometer Calibrator Name Role Phone Lita Oseguera Unavailable Unavailable Marija Edgar APRN DITCHING MACHINE ENGINEER Primary Care Provider + Marija Edgar APRN DITCHING MACHINE ENGINEER Unavailable Mynor Broussard MD Unavailable [phone] Keisha Dotson MD Unavailable [phone] Galo Burrell MD Unavailable Unavailable Diana Desir [facility] Unavailable Rain Galaviz PA-C Unavailable Summer Lara MD Unavailable [phone] Tavia Wyatt MD Unavailable Johnny Murillo MD Unavailable Erica Farrell APRN DITCHING MACHINE ENGINEER Unavailable Teresita Bean [facility] Unavailable [phone] Tavia Wyatt MD Unavailable Diana Desir [facility] Unavailable Rich Barrett MD Unavailable [phone] Neil Kent MD Unavailable Roney Story DPM Unavailable Erica Farrell RUG FRAME MOUNTER DITCHING MACHINE ENGINEER Unavailable Diana Desir [facility] Unavailable [phone] Jelena David OD Unavailable Galo Burrell MD Unavailable Unavailable Livan Sharif MD Unavailable + Livan Sharif MD Unavailable + Catherine Cm MD Unavailable + Valery Veronica PA-C Unavailable [phone] Catherine Cm MD Unavailable + Johnny Murillo MD Unavailable [phone] Brea Quinn RUG FRAME MOUNTER DITCHING MACHINE ENGINEER Unavailable [phone] Brea Quinn RUG FRAME MOUNTER DITCHING MACHINE ENGINEER Unavailable [phone] Joes Francisco Johnson MD Unavailable Livan Sharif MD Unavailable + IsCatherine hobbs MD Unavailable + Sydnie Martinez RN Unavailable Unavailable Alfonso Renteria MD Unavailable Esha Grimm-C Primary Care Provider Cheng Todd PA-C Unavailable Radha Lmoeli RUG FRAME MOUNTER DITCHING MACHINE ENGINEER Unavailable [phone] Jelena David OD Unavailable [phone] Pao Joseph RN Unavailable Unavailable Esha Grimm-C Unavailable [phone] JeremíasValery damon PA-C Unavailable [phone] Rey Tay MD Unavailable Rocky Zepeda DO Unavailable Philip Dumont MD Unavailable Meredith Carrera PA-C Unavailable [phone] Neil Kent MD Unavailable Juan Pbalo Emmanuel MD Unavailable Audrey Waite PA-C Unavailable [phone] Valery Veronica PA-C Unavailable Herminia Hatch MD Unavailable Jelena David OD Unavailable Juan Pablo Emmanuel MD Unavailable Maru Man-C Unavailable [phone] Maru Man-C Unavailable [phone] Jelena David OD Unavailable Fabiano Correa NP Unavailable Encounter Details Date Type Department Care Team (Late st Contact Info) Description 06/01/2021 [facility] [address] [address] Diana Desir, [facility] 30[address] [place] [address] Social History Tobacco Use Types Packs/Day Years [...] Answer Date Recorded PHQ-2 Score 0 04/02/2021 [facility] [place] of Occupat ional Health - Occupational Stress [...] in a penitentiary (including now)? No 08/11/2020 [place] Depression Scale Answer Date Recorded [place] Depression Score 5 01/14/2021 Last EPDS Self Harm Result Not on file 01/14 Education Answer Date Recorded What is the highest level of school you have completed or the highest degree you have received? 12th grade 08/07/2020 Comments No Sex and Gender Information Value Date Recorded Sex Assigned at Female 03/02/2021 5:45 PM CDT Legal Sex Female 4:13 AM GENERAL PRACTITIONER Gender Identity Female 03/02/2021 5:45 PM [...] Telephone Encounter - Diana Desir, [facility] - 06/01/2021 3:43 PM CST Called patient and reassured 50 mg dose increase in sertraline is typical and okay to do. She will closely monitor changes in mental health over next couple weeks. Answered all questions. Diana Desir, PharmD Medication Therapy Management Provider, [facility] Pager: [phone] RAL PRACTITIONER documented in this encounter Plan of Treatment Upcoming Encounters Date Type Department Care Team (Latest Contact Info) Description 01/02/2025 1:10 PM CDT Ancillary Procedure [address] [address] Lauren Claudio PA-C [address] [place] [address] 01/17/2025 10:00 AM CDT Appointment [place] [address] [place] [address] Lauren Claudio PA-C [address] [place] [address] 04/16/2025 11:00 AM CDT Virtual Visit [facility] [address] [phone] Meredith Carrera PA-C [address] [place] [address] documented as of this encounter Visit Diagnoses Not on filedocumented in this encounter Additional Health Concerns Infection Onset Date Last Indicated Resolved Time Rule Out COVID-19 07/13/2021 07/13/2021 07/14/2021 3:04 PM GENERAL PRACTITIONER Rule Out COVID-19 07/18/2021 07/18/2021 07/20/2021 1:56 PM GENERAL PRACTITIONER COVID-19 07/18/2021 07/18/2021 08/08/2021 11:3 9 PM GENERAL PRACTITIONER Rule Out COVID-19 12/18/2021 12/18/2021 12/19/2021 11:34 AM CDT Rule Out COVID-19 02/24/2022 02/24/2022 02/25/2022 1:08 PM CDT Rule Out COVID-19 04/26/2022 04/26/2022 04/26/2022 6:47 AM CDT Rule Out COVID-19 05/17/2022 05/17/2022 05/17/2022 10:20 PM GENERAL PRACTITIONER Rule Out COVID-19 06/09/2022 06/09/2022 06/09/2022 9:35 AM GENERAL PRACTITIONER COVID-19 06/09/2022 06/09/2022 06/30/2022 11:4 1 PM GENERAL PRACTITIONER Rule Out COVID-19 11/10/2022 11/10/2022 11/11/2022 12:17 [...] documented as of this encounter Care Teams Hydrometer Calibrator Relationship Specialty Start Date End Date Marija Edgar APRN DITCHING MACHINE ENGINEER PCP - General Nurse Practitioner 04/30/20 04/14/23 Esha Grimm PA-C [address] [place] [address] PCP - General Family Medicine 05/04/23 Lita Oseguera Personal Advocate & Liaison (PAL) 02/28/20 03/27/23 Marija Edgar APRN DITCHING MACHINE ENGINEER Assigned PCP 06/08/20 04/29/23 Mynor Broussard MD 6[address] [facility] 500 [place] [address] Assigned Surgical Provider 06/01/20 11/28/21 Keisha Dotson MD 909 [place] [address] Assigned Neuroscience Provider 06/04/20 04/01/23 Galo Burrell MD Assigned Heart and Vascular Provider 10/05/20 04/02/22 Diana Desir, [facility] [address] [place] [address] Pharmacist Pharmacist 04/17/21 Rain Galaviz PA-C 5 [facility] [address] [place] [address] Physician Product Safety Head Dermatology 04/28/21 Summer Lara MD [address], [place] [address] Assigned OBGYN Provider 05/31/21 2 Tavia Wyatt MD [address] [place], [place] [address] Dermatology 07/14/21 Johnny Murillo MD [address] [place] [address] Assigned Musculoskeletal Provider 08/30/21 03/17/22 Erica Frarell APRN DITCHING MACHINE ENGINEER [address] [facility] [address] [place] [address] Nurse Practitioner Cardiovascular Disease 09/09/21 Teresita Bean, [facility] [address] [place] [phone] Pharmacist Pharmacist 09/24/21 09/29/21 Tavia Wyatt MD [address] [place] [address] Assigned Surgical Provider 11/29/21 05/07/22 Diana Desir, [facility] 30[address] [place] [address] Assigned MTM Pharmacist 01/02/22 Rich Barrett MD 30[address] [place] [address] Physician Ophthalmology 01/21/22 Neil [place] MD 500 [place] [address] Dermatology 02/24/22 Roney Story DPM [address] [facility] [address] [place] [address] Assigned Musculoskeletal Provider 03/20/22 08/13/22 Erica Farrell APRN DITCHING MACHINE ENGINEER 1700 [place] [address] Assigned Heart and Vascular Provider 04/03/22 04/16/22 Diana Desir, [facility] [address] [place], [place] [address]326 Assigned MTM Pharmacist 04/07/22 Jelena David OD [address] [facility] [place] [address] Assigned Surgical Provider 05/08/22 10/08/22 Galo Burrell MD Assigned Heart and Vascular Provider 04/17/22 06/11/22 Livan Sharif MD [address] [place] [address] Cardiovascular Disease 05/14/22 Livan Sharif MD [address] [place] [address] Assigned Heart and Vascular Provider 06/12/22 07/23/22 Catherine Cm MD [address] [place] [address] Cardiovascular Disease 07/21/22 Valery Veronica, PAUcheC [address] [place] [address] Physician Product Safety Head Dermatology 07/21/22 Catherine Cm MD [address] [facility] [address] [facility] [address] [place] [address] Assigned Heart and Vascular Provider 07/24/22 11/05/22 Johnny Murillo MD [address] [place] [address] Assigned Musculoskeletal Provider 08/14/22 10/08/22 Brea Quinn APRN DITCHING MACHINE ENGINEER [address] [place] [address] Nurse Practitioner Dermatology 09/21/22 Brea Quinn APRN DITCHING MACHINE ENGINEER [address] [place] [address] [place] [address] Assigned Surgical Provider 10/09/22 05/01/24 [place] [address] [place] [address] Assigned Musculoskeletal Provider 10/09/22 05/01/24 Livan Sharif MD [address] [place] [address] Assigned Heart and Vascular Provider 11/06/22 11/12/22 Catherine Cm MD [address] [place] [address] Assigned Heart and Vascular Provider 11/13/22 05/27/23 Sydnie Martinez RN Personal Advocate & Liaison (PAL) Family Medicine 03/28/23 07/31/23 Alfonso Renteria MD [address] [facility] [address] [place] [address] Assigned Neuroscience Provider 04/02/23 09/29/24 Cheng Todd PA-C [address] [place] [address] Assigned PCP 04/30/23 07/15/23 Radha Lomeli APRN DITCHING MACHINE ENGINEER 6405 [facility] [address] [place] [address] Assigned Heart and Vascular Provider 05/28/23 11/29/24 Jelena David OD [address] [facility] [place] [address] Ophthalmology 06/15/23 Pao Joseph, VJ Personal Advocate & Liaison (PAL) Nurse 08/01/23 11/07/23 Esha Grimm PA-C [address] [place] [address] Assigned PCP 07/16/23 Valery Veronica PA-C [address] [place] [address] 351895 Physician Product Safety Head Dermatology 09/19/23 Rey Tay MD 909 [place] [address] Gastroenterology 09/20/23 Rocky Zepeda DO [address] [place] [address] Physician Gastroenterology 09/20/23 Philip Dumont MD 6 [place] [address] Physician Ophthalmology 09/22/23 Meredith Carrera PA-C [address] [place] [address] Assigned Gastroenterology Provider 11/01/23 Neil Kent MD [address] [place] [address] MD Dermatology 11/02/23 Juan [place] [address] [place] [address] [address] Neurological Surgery 12/26/23 Audrey Waite PA-C 500 [place] [address] Physician Product Safety Head Dermatology 02/28/24 Valery Veronica PA-C 429052 [address] [place] [address] Physician Product Safety Head Dermatology 04/10/24 Herminia Hatch MD [address] [place] [address] [id number] Assigned Rheumatology Provider 07/02/24 [place] [address] [place] [address] [place] [address] Ophthalmology 08/30/24 [place] [address] [place] [address] Assigned Neuroscience Provider 09/30/24 Maru Man PA-C [address] [place] [address] Physician Product Safety Head Dermatology 10/03/24 Maru Man PA-C [address] [place] [address] Physician Product Safety Head Dermatology 10/22/24 Jelena David OD [address] [facility] [place] [address] Assigned Surgical Provider 10/31/24 Fabiano Correa NP [address] [place] [address] Assigned Heart and Vascular Provider 11/30/24 documented as of this encounter
--- OUTSIDE RECORDS SUMMARY | 2024-12-31 03:19 | XMS_ITS | Encounter Summary ---
Author Organization [place] Address [address] [place] [address] Care Team Providers Care Supervisor Power Reactor Name Role Phone Rakesh Cid PA-C Unavailable [phone] Rakesh Cid PA-C Primary Care Provider [phone] Lita Oseguera Unavailable Unavailable Rakesh Cid PA-C Unavailable [phone] Isaura Lamar RN Unavailable Unavailable Lita Oseguera Unavailable Unavailable Marija Edgar APRN ADMIN SECRETARY Primary Care Provider + Chanelle Mccann APRN CN Unavailab le Lesley Guillermo CHKamryn Unavailable [phone] Kyara De La Fuente RN Unavailable [phone] Marija Edgar APRN ADMIN SECRETARY Unavailable [phone] Mynor Broussard MD Unavailable [phone] Keisha Dotson MD Unavailable [phone] Mary Mejia Unavailable Unavailable Stacey Briones SCALE SHOOTER Unavailable [phone] Lesley Guillermo CHW Unavailable [phone] Mary Mejia Unavailable Unavailable Lita Oseguera Unavailable Unavailable Galo Burrell MD Unavailable Unavailable Cristina Wood Unavailable Eagle Lesley C [facility] Unavailable Meredith Bedoya Unavailable Unavailable Cristina Wood Unavailable Thang Diana [place] [facility] Unavailable [phone] Rain Galaviz-C Unavailable Summer Lara MD Unavailable [phone] Summer Lara MD Unavailable [phone] Summer Lara MD Unavailable [phone] Tavia Wyatt MD Unavailable [phone] Johnny Murillo MD Unavailable Erica Farrell APRN ADMIN SECRETARY Unavailable Teresita Bean [facility] Unavailable Tavia Wyatt MD Unavailable [phone] Diana Desir [facility] Unavailable [phone] Rich Barrett MD Unavailable [phone] Neil Kent MD Unavailable Roney Story DPM Unavailable Erica Farrlel [place] GUIDE ADMIN SECRETARY Unavailable Diana Desir [facility] Unavailable [phone] Jelena David OD Unavailable Galo Burrell MD Unavailable Unavailable Livan Sharif MD Unavailable + Livan Sharif MD Unavailable + Catherine Cm MD Unavailable + Valery Veronica-C Unavailable Catherine Cm MD Unavailable + Johnny Murillo MD Unavailable [phone] Brea Quinn [place] GUIDE ADMIN SECRETARY Unavailable [phone] Brea Quinn [place] GUIDE ADMIN SECRETARY Unavailable [phone] Jose Francisco Johnson MD Unavailable Livan Sharif MD Unavailable Catherine Cm MD Unavailable + Sydnie Martinez RN Unavailable Unavailable Alfonso Renteria MD Unavailable Esha Grimm PA-C Primary Care Provider Cheng Todd PA-C Unavailable Radha Lomeli [place] GUIDE ADMIN SECRETARY Unavailable Jelena David OD Unavailable Pao Joseph RN Unavailable Unavailable Esha Grimm PA-C Unavailable [phone] Valery Veronica PA-C Unavailable Rey Tay MD Unavailable Rocky Zepeda DO Unavailable Philip Dumont MD Unavailable [phone] Meredith Carrera PA-C Unavailable [phone] Neil Kent MD Unavailable Juan Pablo Emmanuel MD Unavailable Audrey Waite PA-C Unavailable Valery Veronica PA-C Unavailable Herminia Hatch MD Unavailable Jelena David OD Unavailable Juan Pablo Emmanuel MD Unavailable Maru Man PA-C Unavailable [phone] Maru Man PA-C Unavailable [phone] Jelena David OD Unavailable Fabiano Correa CORNER CUTTER MACHINE OPERATOR Unavailable [phone] Reason for Visit * Reason Onset Date Comments Appointment 02/13/2020 Anxiety Encounter Details Date Type Department Care Team (Late st Contact Info) Description 02/13/2020 [facility] Medical Advice [address] [phone] Rakesh Cid PA-C [address] [place] [address] Appointment (Anxiety) Social History Tobacco [...] CDT Legal Sex Female 4:13 AM 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 Gender Identity Female 03/02/2021 5:45 PM CDT Sexual Orientation Straight 02/28/2020 12 :51 AM CDT documented as of this encounter Miscellaneous Notes * Telephone Encounter - Agatha Forrester RN - 02/15/2020 2:28 PM CDT DiJiPOPjose armando message sent to patient to schedule [...] 01/02/2025 1:10 PM CDT Ancillary Procedure [address] [phone] Lauren Claudio PA-C [address] [place] [address] 01/17/2025 10:00 AM CDT Appointment [facility] Respiratory [facility] [place] [address] Lauren Claudio PA-C [address] [place] [address] 04/16/2025 11:00 AM CDT Virtual Visit [facility] [address] [phone] Meredith Carrera PA-C [address] [place] [address] documented as of this encounter Visit Diagnoses Not on filedocumented in this encounter Additional Health Concerns Infection Onset Date Last Indicated Resolved Time Rule Out COVID-19 07/30/2020 07/30/2020 07/30/2020 7:11 PM 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 Rule Out COVID-19 08/30/2020 08/30/2020 08/30/2020 5:05 PM 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 Rule Out COVID-19 09/24/2020 09/24/2020 09/24/2020 9:24 AM CDT Rule Out COVID-19 11/05/2020 11/05/2020 11/06/2020 1:09 PM CDT Rule Out COVID-19 05/11/2021 05/11/2021 05/13/2021 10:18 AM CDT Rule Out COVID-19 07/13/2021 07/13/2021 07/14/2021 3:04 PM 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 Rule Out COVID-19 07/18/2021 07/18/2021 07/20/2021 1:56 PM 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 COVID-19 07/18/2021 07/18/2021 08/08/2021 11:3 9 PM 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 Rule Out COVID-19 12/18/2021 12/18/2021 12/19/2021 11:34 AM CDT Rule Out COVID-19 02/24/2022 02/24/2022 02/25/2022 1:08 PM CDT Rule Out COVID-19 04/26/2022 04/26/2022 04/26/2022 6:47 AM CDT Rule Out COVID-19 05/17/2022 05/17/2022 05/17/2022 10:20 PM 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 Rule Out COVID-19 06/09/2022 06/09/2022 06/09/2022 9:35 AM 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 COVID-19 06/09/2022 06/09/2022 06/30/2022 11:4 1 PM 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 Rule Out COVID-19 11/10/2022 11/10/2022 11/11/2022 [...] Depression Total Score: 1 09/11/19 1:42 PM 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 documented as of this encounter Care Teams Supervisor Power Reactor Relationship Specialty Start Date End Date Rakesh Cid PA-C [address] [facility] [address] PCP - General Physician Mesh Man - Medical 05/14/19 04/29/20 Marija Edgar APRN CNP PCP - General Nurse Practitioner 04/30/20 04/14/23 Esha Grimm PA-C [address] [place] [address] PCP - General Family Medicine 05/04/23 Rakesh Cid PA-C [address] [place] [address] Assigned PCP 05/06/19 03/01/20 Lita Oseguera Personal Advocate & Liaison (PAL) 02/28/20 03/27/23 Rakesh Cid PA-C [address] [facility] [address] Assigned PCP 03/02/20 06/07/20 Isaura Lamar, RN Personal Advocate & Liaison (PAL) Family Practice 04/03/20 04/06/20 Lita Oseguera Personal Advocate & Liaison (PAL) 04/07/20 04/29/20 [place] [address] [facility] [address] [place], [place] 183657 Assigned OBGYN Provider 05/02/2005/09 Lesley Guillermo, W Community Health Worker 05/30/2005/12 Kyara De La Fuente, RN Specialty Finance Accounting Internship Neurology 06/04/20 03/05/21 Marija Edgar APRN ADMIN SECRETARY Assigned PCP 06/08/20 04/29/23 Mynor Broussard MD [address] [facility] 500 [place], [place] 125115 Assigned Surgical Provider 06/01/20 11/28/21 Keisha Dotson MD 909 [place] [address] Assigned Neuroscience Provider 06/04/20 04/01/23 Mary Mejia Financial Resource Worker 08/07/20 08/21/20 Stacey Briones, [facility] Lead Finance Accounting Internship Primary Care - CC 08/11/2012/30 Lesley Guillermo, [...] 02/09/21 Diana Desir, [facility] [address] [place] [address] Pharmacist Pharmacist 04/17/21 Rain Galaviz PA-C [address] [place] [address] [address] [place], [place] [phone] Physician Mesh Man Dermatology 04/28/21 Summer Lara MD [address] [place] [address] 546374 Assigned OBGYN Provider 05/10/2105/23 Summer Lara MD [address] [place] [address] [phone] Assigned OBGYN Provider 05/31/21 2 Summer Lara MD [address] [place] [address] 287414 Assigned OBGYN Provider 05/24/2105/30 Tavia Wyatt MD [address] [place] [address] Dermatology 07/14/21 Johnny Murillo MD [address] [place] [address] [place] [address] Assigned Musculoskeletal Provider 08/30/21 03/17/22 Erica Farrell APRN ADMIN SECRETARY [address] [facility] [address] [place] [address] Nurse Practitioner Cardiovascular Disease 09/09/21 Teresita Bean, [facility] [address] [place], [place] [phone] Pharmacist Pharmacist 09/24/21 09/29/21 Tavia Wyatt MD [address] [place] [address] Assigned Surgical Provider 11/29/21 05/07/22 [facility] [address] [place] [address] Assigned MTM Pharmacist 01/02/22 Rich Barrett MD [address] [place] [address] Physician Ophthalmology 01/21/22 Neil Kent MD 500 [place] [address] Dermatology 02/24/22 Roney Story DPM [address] [facility] [address] [place], [place] 274617 Assigned Musculoskeletal Provider 03/20/22 08/13/22 Erica Farrell APRN ADMIN SECRETARY [address] [place] [address] Assigned Heart and Vascular Provider 04/03/22 04/16/22 Diana Desir, [facility] [address] [place] [address] Assigned MTM Pharmacist 04/07/22 Jelena David OD [address] [facility] [place] [address] Assigned Surgical Provider 05/08/22 10/08/22 Galo Burrell MD Assigned Heart and Vascular Provider 04/17/22 06/11/22 Livan Sharif MD [address] [place] [address] Cardiovascular Disease 05/14/22 Livan Sharif MD [address] [place] [address] Assigned Heart and Vascular Provider 06/12/22 07/23/22 Catherine Cm MD [address] [place] [address] Cardiovascular Disease 07/21/22 Valery Veronica PAUcheC [address]09 [place], [place] 14[address] Physician Mesh Man Dermatology 07/21/22 Catherine Cm MD [address] [place] [address] Assigned Heart and Vascular Provider 07/24/22 11/05/22 Johnny Murillo MD [facility] [address] [address] Assigned Musculoskeletal Provider 08/14/22 10/08/22 Brea Quinn APRN ADMIN SECRETARY [address] [place] [address] Nurse Practitioner Dermatology 09/21/22 Brea Quinn APRN ADMIN SECRETARY [facility]1 [place] [address] Assigned Surgical Provider 10/09/22 05/01/24 [place] [address] [address] Assigned Musculoskeletal Provider 10/09/22 05/01/24 Livan Sharif MD [address] [facility] [address] [place] [address] Assigned Heart and Vascular Provider 11/06/22 11/12/22 Catherine Cm MD [address] [facility] [address] [place] [address] Assigned Heart and Vascular Provider 11/13/22 05/27/23 Sydnie Martinez RN Personal Advocate & Liaison (PAL) Family Medicine 03/28/23 07/31/23 Alfonso Renteria MD [address] [facility] 200 [place], [place] [address]506 Assigned Neuroscience Provider 04/02/23 09/29/24 Cheng Todd PA-C [address] [place] [address] [id number] Assigned PCP 04/30/23 07/15/23 Radha Lomeli APRN ADMIN SECRETARY [address] [facility] [address] [place] [address] Assigned Heart and Vascular Provider 05/28/23 11/29/24 Jelena David OD [address] [facility] [address] MD Ophthalmology 06/15/23 Pao Joseph, VJ Personal Advocate & Liaison (PAL) Nurse 08/01/23 11/07/23 Esha Grimm PA-C [address] [place] [address] Assigned PCP 07/16/23 Valery Veronica PA-C [address] [place] [address] 202235 Physician Mesh Man Dermatology 09/19/23 Rey Tay MD [address] [place] [address] Gastroenterology 09/20/23 Rocky Zepeda DO [address] [place] [address] 034205 Physician Gastroenterology 09/20/23 Philip Dumont MD [address] [place] [address] 694505 Physician Ophthalmology 09/22/23 Meredith Carrera PA-C [address] [place] [address] Assigned Gastroenterology Provider 11/01/23 Neil Kent MD [address] [address] Dermatology 11/02/23 [place] [address] RA[address] [place] [address] 417157 Neurological Surgery 12/26/23 Audrey Waite PA-C [address] [place] [address] Physician Mesh Man Dermatology 02/28/24 Valery Veronica PA-C 220464 [address] [place] [address] 027289 Physician Mesh Man Dermatology 04/10/24 Herminia Hatch MD [address] [place] [address] [id number] Assigned Rheumatology Provider 07/02/24 [place] [address] [place] [address] [place] [address] Ophthalmology 08/30/24 [place] [address] [place] [address] Assigned Neuroscience Provider 09/30/24 Maru Man PA-C [address] [place] [address] Physician Mesh Man Dermatology 10/03/24 Maru Man PA-C [address] [place] [address] Physician Mesh Man Dermatology 10/22/24 Jelena David OD [address] [facility] [place] [address] Assigned Surgical Provider 10/31/24 Fabiano Correa NP [address] [place] [address] Assigned Heart and Vascular Provider 11/30/24 documented as of this encounter
--- OUTSIDE RECORDS SUMMARY | 2024-12-31 03:19 | XMS_ITS | Encounter Summary ---
Author Organization [place] Address [address] [place] [address] Care Team Providers Care Manager Package Name Role Phone Lita Oseguera Unavailable Unavailable Marija Edgar APRN CONTROL VALVE TECHNICIAN Primary Care Provider + Marija Edgar APRN CONTROL VALVE TECHNICIAN Unavailable [phone] Keisha Dotson MD Unavailable Diana Desir [facility] Unavailable Rain Galaviz PA-C Unavailable Tavia Wyatt MD Unavailable Erica Farrell APRN CONTROL VALVE TECHNICIAN Unavailable Rich Barrett MD Unavailable [phone] Neil Kent MD Unavailable Diana Desir [facility] Unavailable Livan Sharif MD Unavailable Catherine Cm MD Unavailable + Valery Veronica PA-C Unavailable Brea Quinn SORTING COWS WORKER CONTROL VALVE TECHNICIAN Unavailable Brea Quinn SORTING COWS WORKER CONTROL VALVE TECHNICIAN Unavailable Jose Francisco Johnson MD Unavailable Livan Sharif MD Unavailable Catherine Cm MD Unavailable + Sydnie Martinez RN Unavailable Unavailable Alfonso Renteria MD Unavailable [phone] Esha Grimm PA-C Primary Care Provider Cheng Todd PA-C Unavailable ArmaniRadha APRN CONTROL VALVE TECHNICIAN Unavailable Jelena David OD Unavailable [phone] Pao Joseph RN Unavailable Unavailable Esha Grimm PA-C Unavailable [phone] Valery Veronica PA-C Unavailable Rey Tay MD Unavailable Rocky Zepeda DO Unavailable Philip Dumont MD Unavailable [phone] Meredith Carrera PA-C Unavailable [phone] Neil Kent MD Unavailable Juan Pablo Emmanuel MD Unavailable Audrey Waite PA-C Unavailable Valery Veronica PA-C Unavailable Herminia Hatch MD Unavailable Jelena David OD Unavailable [phone] Juan Pablo Emmanuel MD Unavailable [phone] Maru Man PA-C Unavailable [phone] Maru Man PA-C Unavailable [phone] Jelena David OD Unavailable [phone] Fabiano Correa NP Unavailable Encounter Details Date Type Department Care Team (Late st Contact Info) Description 11/10/2022 MyC Medical Advice [facility] [address] [place] [phone] Lauren Claudio, PAUcheC [address] [place] [address] Social History Tobacco Use Types [...] often do you attend yarsani or yarsanism serv ices? Never 09/22/2021 Do [...] Answer Date Recorded PHQ-2 Score 1 10/11/2022 [facility] [place] of Occupat ional Health - Occupational Stress [...] in a fpc (including now)? No 09/22/2021 Engelhard Depression Scale Answer Date Recorded Engelhard Depression Score 5 01/14/2021 Last EPDS Self Harm Result Not on file 01/14 Education Answer Date Recorded What is the highest level of school you have completed or the highest degree you have received? 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 Gender Identity Female 03/02/2021 5:45 PM CDT [...] Description 01/02/2025 1:10 PM CDT Ancillary Procedure [address] [phone] Lauren Claudio PA-C [address] [place] [address] 01/17/2025 10:00 AM CDT Appointment [facility] Respiratory [address] [place] [phone] Lauren Claudio PA-C [address] [place] [address] 04/16/2025 11:00 AM CDT Virtual Visit [facility] [address] [place] [phone] Meredith Carrera PA-C [address] [place] [address] documented as of this encounter Visit Diagnoses [...] as of this encounter Care Teams Manager Package Relationship Specialty Start Date End Date Marija Edgar APRN CONTROL VALVE TECHNICIAN PCP - General Nurse Practitioner 04/30/20 04/14/23 Esha Grimm PA-C [address] [place] [address] PCP - General Family Medicine 05/04/23 Lita Oseguera Personal Advocate & Liaison (PAL) 02/28/20 03/27/23 Marija Edgar APRN CONTROL VALVE TECHNICIAN Assigned PCP 06/08/20 04/29/23 Keisha Dotson MD [address] [place] [address] Assigned Neuroscience Provider 06/04/20 04/01/23 Diana Desir [facility] [address] [place] [address] Pharmacist Pharmacist 04/17/21 Rain Galaviz PA-C [address] [place] [address] [address] [place] [address] Physician Justice Professor Dermatology 04/28/21 Tavia Wyatt MD [address] [place] [address] [place] [address] Dermatology 07/14/21 Erica Farrell APRN CONTROL VALVE TECHNICIAN [address] [place], [place] 144[address] Nurse Practitioner Cardiovascular Disease 09/09/21 Rich Barrett MD [address] [place] [address] Physician Ophthalmology 01/21/22 Neil Kent MD 500 [place] [address] Dermatology 02/24/22 Diana Desir [facility] [address] [place] [address] Assigned MTM Pharmacist 04/07/22 Livan Sharif MD [address] [place] [address] Cardiovascular Disease 05/14/22 Catherine Cm MD [address] [place] [address] Cardiovascular Disease 07/21/22 Valery Veronica PA-C [address] [place] [address] Physician Justice Professor Dermatology 07/21/22 Brea Quinn APRN CONTROL VALVE TECHNICIAN [address] [place] [address] Nurse Practitioner Dermatology 09/21/22 Brea Quinn APRN CONTROL VALVE TECHNICIAN [address] [place] [address] [place] [address] Assigned Surgical Provider 10/09/22 05/01/24 [place] [address] [place] [place] [address] Assigned Musculoskeletal Provider 10/09/22 05/01/24 Livan Sharif MD [address] [place] [address] Assigned Heart and Vascular Provider 11/06/22 11/12/22 Catherine Cm MD [address] [place] [address] Assigned Heart and Vascular Provider 11/13/22 05/27/23 Sydnie Martinez RN Personal Advocate & Liaison (PAL) Family Medicine 03/28/23 07/31/23 Alfonso Renteria MD [address] [facility] [address] [place] [address] Assigned Neuroscience Provider 04/02/23 09/29/24 Cheng Todd PA-C [address] [place] [address] Assigned PCP 04/30/23 07/15/23 Radha Lomeli APRN CONTROL VALVE TECHNICIAN [address] [facility] [address] [place] [address] Assigned Heart and Vascular Provider 05/28/23 11/29/24 Jelena David OD [address] [place] [address] Ophthalmology 06/15/23 Pao Joseph, VJ Personal Advocate & Liaison (PAL) Nurse 08/01/23 11/07/23 Esha Grimm PA-C [address] [place] [phone] Assigned PCP 07/16/23 Valery Veronica PA-C [address] [place] [address] 030215 Physician Justice Professor Dermatology 09/19/23 Rey Tay MD 9 [place] [address] Gastroenterology 09/20/23 Rocky Zepeda DO [address] [place] [address] Physician Gastroenterology 09/20/23 Philip Dumont MD [address] [place] [address] Physician Ophthalmology 09/22/23 Meredith Carrera PA-C [address] [place] [address] Assigned Gastroenterology Provider 11/01/23 Neil Kent MD [address] [place] [address] MD Dermatology 11/02/23 [place] [address] [place] [place] [address] Neurological Surgery 12/26/23 Audrey Waite PA-C [address] [place] [address] Physician Justice Professor Dermatology 02/28/24 Valery Veronica PA-C 696277 [address] [address] Physician Justice Professor Dermatology 04/10/24 Herminia Hatch MD [facility]5 [place], [place] 40341[address] Assigned Rheumatology Provider 07/02/24 Jelena David OD [address] [place] [address] Ophthalmology 08/30/24 [place] [address] [place] [address] Assigned Neuroscience Provider 09/30/24 Maru Man PA-C [address] [place] [address] Physician Justice Professor Dermatology 10/03/24 Maru Man PA-C [address] [place] [address] Physician Justice Professor Dermatology 10/22/24 Jelena David OD [address] [facility] [place] [address] Assigned Surgical Provider 10/31/24 Fabiano Correa NP [address] [place] [address] Assigned Heart and Vascular Provider 11/30/24 documented as of this encounter
--- OUTSIDE RECORDS SUMMARY | 2024-12-31 03:19 | XMS_ITS | Encounter Summary ---
Author Organization [facility] Address [address] [place] [address] Care Team Providers Care Block Trader Name Role Phone Lita Oseguera Unavailable Unavailable Marija Edgar APRN MOTORCYCLE RIDING INSTRUCTOR Primary Care Provider + Marija Edgra APRN MOTORCYCLE RIDING INSTRUCTOR Unavailable Mynor Broussard MD Unavailable [phone] Keisha Dotson MD Unavailable Galo Burrell MD Unavailable Unavailable Diana Desir [facility] Unavailable [phone] Rain Galaviz PA-C Unavailable [phone] Summer Lara MD Unavailable [phone] Tavia Wyatt MD Unavailable Johnny Murillo MD Unavailable Erica Farrell APRN MOTORCYCLE RIDING INSTRUCTOR Unavailable Teresita Bean [facility] Unavailable Tavia Wyatt MD Unavailable Diana Desir [facility] Unavailable [phone] Rich Barrett MD Unavailable [phone] Neil Kent MD Unavailable Roney Story DPM Unavailable Erica Farrell FUEL SYSTEM MAINTENANCE WORKER MOTORCYCLE RIDING INSTRUCTOR Unavailable Diana Desir [facility] Unavailable [phone] Jelena David OD Unavailable Galo Burrell MD Unavailable Unavailable Livan Sharif MD Unavailable + Livan Sharif MD Unavailable + Catherine Cm MD Unavailable + Valery Veronica PA-C Unavailable [phone] Catherine Cm MD Unavailable + Johnny Murillo MD Unavailable [phone] Brea Quinn FUEL SYSTEM MAINTENANCE WORKER MOTORCYCLE RIDING INSTRUCTOR Unavailable [phone] Brea Quinn FUEL SYSTEM MAINTENANCE WORKER MOTORCYCLE RIDING INSTRUCTOR Unavailable [phone] Jose Francisco Johnson MD Unavailable Livan Sharif MD Unavailable + IsCatherine hobbs MD Unavailable + Sydnie Martinez RN Unavailable Unavailable Alfonso Renteria MD Unavailable Esha Grimm-C Primary Care Provider Cheng Todd PA-C Unavailable Radha Lomeli FUEL SYSTEM MAINTENANCE WORKER MOTORCYCLE RIDING INSTRUCTOR Unavailable [phone] Jelena David OD Unavailable Pao Joseph RN Unavailable Unavailable Esha Grimm-C Unavailable [phone] JeremíasValery damon PA-C Unavailable [phone] Rey Tay MD Unavailable Rocky Zepeda DO Unavailable Philip Dumont MD Unavailable Meredith Carrera PA-C Unavailable [phone] Neil Kent MD Unavailable Juan Pablo Emmanuel MD Unavailable [phone] Audrey Waite PA-C Unavailable [phone] Valery Veronica PA-C Unavailable [phone] eHrminia Hatch MD Unavailable Jelena David OD Unavailable Juan Pablo Emmanuel MD Unavailable [phone] Maru Man-C Unavailable [phone] Maru Man-C Unavailable [phone] Jelena David OD Unavailable Fabiano Correa NP Unavailable [phone] Encounter Details Date Type Department Care Team (Late st Contact Info) Description 06/25/2021 [facility] [address] [address] Diana Desir, [facility] [address] [place] [address] Psoriasis (Primary Dx) Social History Tobacco Use [...] do you attend chur or buddhism services? More than 4 times [...] Answer Date Recorded PHQ-2 Score 0 04/02/2021 [facility] - Occupational Stress [...] in a prison (including now)? No 08/11/2020 [place] Depression Scale Answer Date Recorded [place] Depression Score 5 01/14/2021 Last EPDS Self Harm Result Not on file 01/14 Education Answer Date Recorded What is the highest level of school you have completed or the highest degree you have received? 12th grade 08/07/2020 Comments No Sex and Gender Information Value Date Recorded Sex Assigned at Female 03/02/2021 5:45 PM CDT Legal Sex Female 4:13 AM MIDDLE CARD TENDER Gender Identity Female 03/02/2021 5:45 PM CDT Sexual Orientation Straight 02/28/2020 12 :51 AM CDT COVID-19 Exposure Response Date Recorded In the last month, have you been in contact with someone who was confirmed or suspected to have Coronavirus / COVID-19? No / Unsure 06/26/2021 8:28 AM MIDDLE CARD TENDER documented as of this encounter Miscellaneous Notes * Telephone Encounter - Diana Desir, [facility] - 06/26/2021 9:53 AM CST Discussed with PCP and verbal approval for betamethasone cream. Diana Desir, PharmD Medication Therapy Management Provider, [facility] Pager: [phone] LE CARD TENDER documented in this encounter Plan of Treatment Upcoming Encounters Date Type Department Care Team (Latest Contact Info) Description 01/02/2025 1:10 PM CDT Ancillary Procedure [facility] [address] [place] [phone] Lauren Claudio PA-C [id number] [place] [address] 01/17/2025 10:00 AM CDT Appointment [place] [id number] [place] [phone] Lauren Claudio PA-C [address] [place] [address] 04/16/2025 11:00 AM CDT Virtual Visit [facility] [address] [phone] Meredith Carrera PA-C [address] [place] [address] documented as of this encounter Visit Diagnoses Diagnosis Psoriasis- Primary Other psoriasis documented in this encounter Additional Health Concerns Infection Onset Date Last Indicated Resolved Time Rule Out COVID-19 07/13/2021 07/13/2021 07/14/2021 3:04 PM MIDDLE CARD TENDER Rule Out COVID-19 07/18/2021 07/18/2021 07/20/2021 1:56 PM MIDDLE CARD TENDER COVID-19 07/18/2021 07/18/2021 08/08/2021 11:3 9 PM MIDDLE CARD TENDER Rule Out COVID-19 12/18/2021 12/18/202112/19/2021 11:34 AM CDT Rule Out COVID-19 02/24/2022 02/24/2022 02/25/2022 1:08 PM CDT Rule Out COVID-19 04/26/2022 04/26/2022 04/26/2022 6:47 AM CDT Rule Out COVID-19 05/17/2022 05/17/2022 05/17/2022 10:20 PM MIDDLE CARD TENDER Rule Out COVID-19 06/09/2022 06/09/2022 06/09/2022 9:35 AM MIDDLE CARD TENDER COVID-19 06/09/2022 06/09/2022 06/30/2022 11:4 1 PM MIDDLE CARD TENDER Rule Out COVID-19 11/10/2022 11/10/2022 11/11/2022 [...] documented as of this encounter Care Teams Block Trader Relationship Specialty Start Date End Date Marija Edgar APRN CNP PCP - General Nurse Practitioner 04/30/20 04/14/23 Esha Grimm PA-C [address] [place] [phone] PCP - General Family Medicine 05/04/23 Lita Oseguera Personal Advocate & Liaison (PAL) 02/28/20 03/27/23 Marija Edgar APRN MOTORCYCLE RIDING INSTRUCTOR Assigned PCP 06/08/20 04/29/23 Mynor Broussard MD [address] [facility] [address] [place], [place] [address] Assigned Surgical Provider 06/01/20 11/28/21 Keisha Dotson MD [address] [place], [place] 9[address] Assigned Neuroscience Provider 06/04/20 04/01/23 Galo Burrell MD Assigned Heart and Vascular Provider 10/05/20 04/02/22 Diana Desir, [facility] [address] [place] [address] Pharmacist Pharmacist 04/17/21 Rain Galaviz PA-C [address] [place] [address] [address] [place] [address] Physician Inspector Barrel Dermatology 04/28/21 Summer Lara MD [address] [place] [address] Assigned OBGYN Provider 05/31/21 2 Tavia Wyatt MD [address] [place] [address] Dermatology 07/14/21 Johnny Murillo MD [address] [place] [address] Assigned Musculoskeletal Provider 08/30/21 03/17/22 Erica Farrell APRN MOTORCYCLE RIDING INSTRUCTOR [address] [facility] [address] [place] [address] Nurse Practitioner Cardiovascular Disease 09/09/21 Teresita Bean, [facility] [address] [place], [place] [phone] Pharmacist Pharmacist 09/24/21 09/29/21 Tavia Wyatt MD [address] [place] [address] Assigned Surgical Provider 11/29/21 05/07/22 [facility] [address] [place] [address] Assigned MTM Pharmacist 01/02/22 Rich Barrett MD [facility] [place] [address] Physician Ophthalmology 01/21/22 Neil Kent MD 500 [place] [address] Dermatology 02/24/22 Roney Story DPM [address] [facility] [address] [place] [address] Assigned Musculoskeletal Provider 03/20/22 08/13/22 Erica Farrell APRN CNP [address] [place] [address] Assigned Heart and Vascular Provider 04/03/22 04/16/22 [facility] [address] [place] [address] Assigned MTM Pharmacist 04/07/22 Jelena David OD [address] [facility] [address] Assigned Surgical Provider 05/08/22 10/08/22 Galo Burrell MD Assigned Heart and Vascular Provider 04/17/22 06/11/22 Livan Sharif MD [address] [place], [place] [address] Cardiovascular Disease 05/14/22 Livan Sharif MD [address] [place] [address] Assigned Heart and Vascular Provider 06/12/22 07/23/22 Catherine Cm MD [address] [place] [address] Cardiovascular Disease 07/21/22 Valery Veronica, PAUcheC [address] [place], [place] [address] Physician Inspector Barrel Dermatology 07/21/22 Catherine Cm MD [address] [place] [place] [address] [place] [address] Assigned Heart and Vascular Provider 07/24/22 11/05/22 Johnny Murillo MD [address] [place] [address] [phone] Assigned Musculoskeletal Provider 08/14/22 10/08/22 Brea Quinn APRN MOTORCYCLE RIDING INSTRUCTOR [address] [place] [address] 683815 Nurse Practitioner Dermatology 09/21/22 Brea Quinn APRN MOTORCYCLE RIDING INSTRUCTOR [address] [place] [address] [place] [address] Assigned Surgical Provider 10/09/22 05/01/24 [place] [address] [place] [address] Assigned Musculoskeletal Provider 10/09/22 05/01/24 Livan Sharif MD [address] [address] [place] [address] Assigned Heart and Vascular Provider 11/06/22 11/12/22 Catherine Cm MD [address] [address] [place] [address] Assigned Heart and Vascular Provider 11/13/22 05/27/23 Sydnie Martinez RN Personal Advocate & Liaison (PAL) Family Medicine 03/28/23 07/31/23 Alfonso Renteria MD [address] [facility] [address] [place] [address] Assigned Neuroscience Provider 04/02/23 09/29/24 Cheng Todd PA-C [address] [place] [address] [phone] Assigned PCP 04/30/23 07/15/23 Radha Lomeli APRN MOTORCYCLE RIDING INSTRUCTOR [address] [facility] [address] [place], [place] 7[address] Assigned Heart and Vascular Provider 05/28/23 11/29/24 Jelena David OD [address] [facility] [address] [place] [phone] Ophthalmology 06/15/23 Pao Joseph, RN Personal Advocate & Liaison (PAL) Nurse 08/01/23 11/07/23 Esha Grimm PA-C [address] [place] [phone] Assigned PCP 07/16/23 Valery Veronica PA-C [address] [place] [address] Physician Inspector Barrel Dermatology 09/19/23 Rey Tay MD [address] [place] [address] 327005 Gastroenterology 09/20/23 Rocky Zepeda DO [address] [place] [address]594 Physician Gastroenterology 09/20/23 Philip Dumont MD 6 [place] [address] Physician Ophthalmology 09/22/23 Meredith Carrera PA-C [address] [place] [address] [phone] Assigned Gastroenterology Provider 11/01/23 Neil Kent MD [address] [place] [address] [phone] MD Dermatology 11/02/23 [place] [address] [facility] [place] [address] Neurological Surgery 12/26/23 Audrey Waite PA-C [address] [place] [address] 840955 Physician Inspector Barrel Dermatology 02/28/24 Valery Veronica PA-C [address] [address] Physician Inspector Barrel Dermatology 04/10/24 Herminia Hatch MD [facility] [place], [place] [phone] Assigned Rheumatology Provider 07/02/24 Jelena David OD [address] [place] [address] Ophthalmology 08/30/24 [place] [address] [place], [place] [address] Assigned Neuroscience Provider 09/30/24 Maru Man PA-C [address] [place] [address] Physician Inspector Barrel Dermatology 10/03/24 Maru Man PA-C [address] [place] [address] Physician Inspector Barrel Dermatology 10/22/24 Jelena David OD [address] [facility] [place] [address] Assigned Surgical Provider 10/31/24 Fabiano [place], COOK HOUSE SUPERVISOR [address] [place] [address] Assigned Heart and Vascular Provider 11/30/24 documented as of this encounter
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
--- OUTSIDE RECORDS SUMMARY | 2024-12-31 03:20 | XMS_ITS | Encounter Summary ---
Author Organization [place] Address [address] [place] [address] Care Team Providers Care Roving Court Reporter Name Role Phone Lita Oseguera Unavailable Unavailable Marija Edgar APRN PAVING RAMMER Primary Care Provider + Marija Edgar APRN PAVING RAMMER Unavailable [phone] Keisha Dotson MD Unavailable Diana Desir [facility] Unavailable Rain Galaviz PA-C Unavailable Tavia Wyatt MD Unavailable Erica Farrell APRN PAVING RAMMER Unavailable Rich Barrett MD Unavailable [phone] Neil Kent MD Unavailable Roney Story DPM Unavailable Diana Desir [facility] Unavailable [phone] Jelena David OD Unavailable Livan Sharif MD Unavailable Livan Shairf MD Unavailable Catherine Cm MD Unavailable + Valery Veronica PA-C Unavailable Catherine Cm MD Unavailable + Johnny Murillo MD Unavailable [phone] Brea Quinn TRADE SALES ASSISTANT PAVING RAMMER Unavailable [phone] Brea Quinn TRADE SALES ASSISTANT PAVING RAMMER Unavailable [phone] Jose Francisco Johnson MD Unavailable Livan Sharif MD Unavailable Catherine Cm MD Unavailable + Sydnie Martinez RN Unavailable Unavailable Alfonso Renteria MD Unavailable [phone] Esha Grimm PA-C Primary Care Provider Cheng Todd PA-C Unavailable [phone] Radha Lomeli TRADE SALES ASSISTANT PAVING RAMMER Unavailable Jelena David OD Unavailable Pao Joseph RN Unavailable Unavailable Esha Grimm PA-C Unavailable [phone] Valery Veronica PA-C Unavailable Rey Tay MD Unavailable Rocky Zepeda DO Unavailable Philip Dumont MD Unavailable Meredith Carrera PA-C Unavailable Neil Kent MD Unavailable Juan Pablo Emmanuel MD Unavailable [phone] Audrey Waite PA-C Unavailable Valery Veronica PA-C Unavailable Herminia Hatch MD Unavailable Jelena David OD Unavailable [phone] Juan Pablo Emmanuel MD Unavailable [phone] Maru Man PA-C Unavailable +[phone] Maru Man PA-C Unavailable [phone] Jelena David OD Unavailable [phone] Fabiano Correa NP Unavailable [phone] Encounter Details Date Type Department Care Team (Late st Contact Info) Description 07/20/2022 MyC Medical Advice [address] [address] Pao Donahue RN Social History [...] How often do you attend caodaism or yazdanism serv ices? Never 09/22/2021 Do [...] points; Administer PHQ-9 if positive 1 05/13/2022 [facility] of Occupat ional [facility] - Occupational Stress Questionnaire Answer Date [...] in a fdc (including now)? No 09/22/2021 [place] Depression Scale Answer Date Recorded [place] Depression Score 5 01/14/2021 Last EPDS Self Harm Result Not on file 01/14 Education Answer Date Recorded What is the highest level of school you have completed or the highest degree you have received? 12th grade 08/07/2020 Comments No Sex and Gender Information Value Date Recorded Sex Assigned at Female 03/02/2021 5:45 PM CDT Legal Sex Female 4:13 AM C SOFTWARE ENGINEER Gender Identity Female 03/02/2021 5:45 PM CDT Sexual Orientation Straight 02/28/2020 12 :51 AM CDT COVID-19 Exposure Response Date Recorded In the last 10 days, have yo u been in contact with someone who was confirmed or suspected to have Coronavirus/COVID-19? No / Unsure 07/23/2022 6:45 AM C SOFTWARE ENGINEER documented as of this encounter Plan of Treatment Upcoming Encounters Date Type Department Care Team (Latest Contact Info) Description 01/02/2025 1:10 PM CDT Ancillary Procedure [address] [phone] Lauren Claudio PA-C [address] [place] [address] 01/17/2025 10:00 AM CDT Appointment [facility] Respiratory [address] [place] [phone] Lauren Claudio PA-C [address] [place] [address] 04/16/2025 11:00 AM CDT Virtual Visit [facility] [address] 4th [place] [phone] Meredith Carrera PA-C [address] [place] [address] documented as of this encounter Visit Diagnoses [...] documented as of this encounter Care Teams Roving Court Reporter Relationship Specialty Start Date End Date Marija Edgar APRN CNP PCP - General Nurse Practitioner 04/30/20 04/14/23 Esha Grimm PA-C [address] [place] [phone] PCP - General Family Medicine 05/04/23 Lita Oseguera Personal Advocate & Liaison (PAL) 8/20/20 9/17/23 Marija Edgar APRN PAVING RAMMER Assigned PCP 06/08/20 04/29/23 Keisha Dotson MD 9[address] [place], [place] 043865 Assigned Neuroscience Provider 06/04/20 04/01/23 [facility] [address] [place], [place] [address]256 Pharmacist Pharmacist 04/17/21 Rain Galaviz PA-C [address] [place] [address] [address] [place] [address] [place] [address] Physician Enamel Dipper Dermatology 04/28/21 Tavia Wyatt MD [address] [place] [address] [address] RA[address] [facility] [place] [address] Dermatology 07/14/21 Erica Farrell APRN PAVING RAMMER [address] [place] [address] Nurse Practitioner Cardiovascular Disease 09/09/21 Rich Barrett MD [address] [place] [address] Physician Ophthalmology 01/21/22 Neil Kent MD 500 [place] [address] Dermatology 02/24/22 Roney Story DPM [address] [facility] [address] [place] [address] Assigned Musculoskeletal Provider 03/20/22 08/13/22 Diana Desir, [facility] [address] [place] [address] Assigned MTM Pharmacist 04/07/22 Jelnea David OD [address] [facility] [place] [id number] Assigned Surgical Provider 05/08/22 10/08/22 Livan Sharif MD [address] [place] 079645 Cardiovascular Disease 05/14/22 Livan Sharif MD [address] [place] 415855 Assigned Heart and Vascular Provider 06/12/22 07/23/22 Catherine Cm MD [address] [place] 249745 Cardiovascular Disease 07/21/22 Valery Veronica, PAUcheC 909 [place], [place] 401695 Physician Enamel Dipper Dermatology 07/21/22 Catherine Cm MD [address] [place] 370315 Assigned Heart and Vascular Provider 07/24/22 11/05/22 Johnny Murillo MD [address] [place], [place] [address] [place] [address] Assigned Musculoskeletal Provider 08/14/22 10/08/22 Brea Quinn APRN PAVING RAMMER 500 [place], [place] 362805 Nurse Practitioner Dermatology 09/21/22 Brea Quinn APRN PAVING RAMMER 6401 [facility] [place] 977282 Assigned Surgical Provider 10/09/22 05/01/24 [place] [address] [address] Assigned Musculoskeletal Provider 10/09/22 05/01/24 Livan Sharif MD [address]405 [facility] [address] [place] [address] Assigned Heart and Vascular Provider 11/06/22 11/12/22 Catherine Cm MD 6405 [facility] [address] [place] [address] Assigned Heart and Vascular Provider 11/13/22 05/27/23 Sydnie Martinez RN Personal Advocate & Liaison (PAL) Family Medicine 03/28/23 07/31/23 Alfonso Renteria MD [address] [facility] 200 [place], [place] 954086 Assigned Neuroscience Provider 04/02/23 09/29/24 Cheng Todd PA-C [address] [place] [address] [phone] Assigned PCP 04/30/23 07/15/23 Radha Lomeli APRN PAVING RAMMER 6405 [facility] [address] [place] [address] Assigned Heart and Vascular Provider 05/28/23 11/29/24 Jelena David OD [address] [facility] [address] [place] [id number] MD Ophthalmology 06/15/23 Pao Joseph, VJ Personal Advocate & Liaison (PAL) Nurse 08/01/23 11/07/23 Esha Grimm PA-C [address] [place] [address]83 Assigned PCP 07/16/23 Valery Veroinca PA-C [address] [place] [address] 439845 Physician Enamel Dipper Dermatology 09/19/23 Rey Tay MD [address] [place] [address] 352805 Gastroenterology 09/20/23 Rocky Zepeda DO [address] [place] [address] 849695 Physician Gastroenterology 09/20/23 Philip Dumont MD [address] [place] [address] 897135 Physician Ophthalmology 09/22/23 Meredith Carrera PA-C [address]09 [place], [place] 544635 Assigned Gastroenterology Provider 11/01/23 Neil Kent MD [address] [address] Dermatology 11/02/23 [place] [address] [place], [place] 954607 Neurological Surgery 12/26/23 Audrey Waite PA-C 500 [place], [place] 208255 Physician Enamel Dipper Dermatology 02/28/24 Valery Veronica PA-C 585834 [place], [place] 336609 Physician Enamel Dipper Dermatology 04/10/24 Herminia Hatch MD [facility]5 [place], [place] [phone] Assigned Rheumatology Provider 07/02/24 Jelena David OD [address] [facility] [place] [address] Ophthalmology 08/30/24 [place] [address] [place] [address] Assigned Neuroscience Provider 09/30/24 Maru Man PA-C [address] [place] [address], [place] [address] Physician Enamel Dipper Dermatology 10/03/24 Maru Man PA-C [address] [place] [address], [place] [address] Physician Enamel Dipper Dermatology 10/22/24 Jelena David OD [address] [place] [address] Assigned Surgical Provider 10/31/24 Fabiano Correa, BRY[place] [address] [place] [address] Assigned Heart and Vascular Provider 11/30/24 documented as of this encounter
--- OUTSIDE RECORDS SUMMARY | 2024-12-31 03:20 | XMS_ITS | Encounter Summary ---
Author Organization [place] Address [address] [place] [address] Care Team Providers Care Clerical Car Checker Name Role Phone Lita Oseguera Unavailable Unavailable Marija Edgar POWERHOUSE HELPER CROP AND SOIL SCIENTIST Primary Care Provider + Chanelle Mccann POWERHOUSE HELPER CNM Unavailab le Marija Edgar APRN CROP AND SOIL SCIENTIST Unavailable [phone] Mynor Broussard MD Unavailable [phone] Keisha Dotson MD Unavailable Galo Burrell MD Unavailable Unavailable Diana Desir [facility] Unavailable Rain Galaviz PA-C Unavailable Summer Lara MD Unavailable [phone] Summer Lara MD Unavailable [phone] Summer Lara MD Unavailable [phone] Tavia Wyatt MD Unavailable Johnny Murillo MD Unavailable Erica Farrell POWERHOUSE HELPER CROP AND SOIL SCIENTIST Unavailable Teresita Bean [facility] Unavailable Tavia Wyatt MD Unavailable DesirDiana [facility] Unavailable Rich Barrett MD Unavailable Neil Kent MD Unavailable Roney StoryM Unavailable [phone] Erica Farrell APRN CROP AND SOIL SCIENTIST Unavailable Diana Desir [facility] Unavailable [phone] Jelena David OD Unavailable Galo Burrell MD Unavailable Unavailable Livan Sharif MD Unavailable Livan Sharif MD Unavailable Catherine Cm MD Unavailable + Valery VeronicaC Unavailable [phone] Catherine Cm MD Unavailable + Johnny Murillo MD Unavailable [phone] Brea Quinn POWERHOUSE HELPER CROP AND SOIL SCIENTIST Unavailable [phone] Brea Quinn POWERHOUSE HELPER CROP AND SOIL SCIENTIST Unavailable [phone] Jose Francisco Johnson MD Unavailable Livan Sharif MD Unavailable Catherine Cm MD Unavailable + Sydnie Martinez RN Unavailable Unavailable Alfonso Renteria MD Unavailable Esha GrimmC Primary Care Provider Cheng Todd-C Unavailable [phone] Radha Lomeli APRN CROP AND SOIL SCIENTIST Unavailable [phone] Jelena David OD Unavailable Pao Joseph RN Unavailable Unavailable [place], Esha M PA-C Unavailable [phone] Valery Veronica PA-C Unavailable Rey Tay [...] Contact Info) Description 04/28/2021 MyC Medical Advice [address] [address] Marija Edgar APRN CROP AND SOIL SCIENTIST [address] [facility] [place] [address] Social History Tobacco [...] you attend [facility] or yazdanism services? More than 4 times [...] Answer Date Recorded PHQ-2 Score 0 04/02/2021 [facility] of Occupat ional Health - Occupational Stress [...] health care facility (including now)? No 08/11/2020 [place] Depression Scale Answer Date Recorded [place] [...] PM CDT Legal Sex Female 4:13 AM TRAUMA SURGEON Gender Identity Female 03/02/2021 5:45 PM CDT [...] Description 01/02/2025 1:10 PM CDT Ancillary Procedure [address] [address] Lauren Claudio PA-C [address] [place] [address] 01/17/2025 10:00 AM CDT Appointment [facility] Respiratory [facility]5 [place] [phone] Lauren Claudio PA-C [address] [place] [address] 04/16/2025 11:00 AM CDT Virtual Visit [facility] Gastroenterology Clinic [address]th [place] [phone] Meredith Carrera PA-C [address] [place] [address] documented as of this encounter Visit Diagnoses Not on filedocumented in this encounter Additional Health Concerns Infection Onset Date Last Indicated Resolved Time Rule Out COVID-19 05/11/2021 05/11/2021 05/13/2021 10:18 AM CDT Rule Out COVID-19 07/13/2021 07/13/2021 07/14/2021 3:04 PM TRAUMA SURGEON Rule Out COVID-19 07/18/2021 07/18/2021 07/20/2021 1:56 PM TRAUMA SURGEON COVID-19 07/18/2021 07/18/2021 08/08/2021 11:3 9 PM TRAUMA SURGEON Rule Out COVID-19 12/18/2021 12/18/2021 12/19/2021 11:34 AM CDT Rule Out COVID-19 02/24/2022 02/24/2022 02/25/2022 1:08 PM CDT Rule Out COVID-19 04/26/2022 04/26/2022 04/26/2022 6:47 AM CDT Rule Out COVID-19 05/17/2022 05/17/2022 05/17/2022 10:20 PM TRAUMA SURGEON Rule Out COVID-19 06/09/2022 06/09/2022 06/09/2022 9:35 AM TRAUMA SURGEON COVID-19 06/09/2022 06/09/2022 06/30/2022 11:4 1 PM TRAUMA SURGEON Rule Out COVID-19 11/10/2022 11/10/2022 11/11/2022 12:17 [...] as of this encounter Care Teams Clerical Car Checker Relationship Specialty Start Date End Date Marija Edgar APRN CNP PCP - General Nurse Practitioner 04/30/20 04/14/23 Esha Grimm PA-C [address] [place] [address] PCP - General Family Medicine 05/04/23 Lita Oseguera Personal Advocate & Liaison (PAL) 02/28/20 03/27/23 Chanelle Mccann APRN CNM [address] [place], [facility] 200 [place] [address] Assigned OBGYN Provider 05/02/2005/09 Marija Edgar APRN CROP AND SOIL SCIENTIST Assigned PCP 06/08/20 04/29/23 Mynor Broussard MD 6363 [facility] 500 [place], [place] 642265 Assigned Surgical Provider 06/01/20 11/28/21 Keisha Dotson MD 909 [place], [place] 893185 Assigned Neuroscience Provider 06/04/20 04/01/23 Galo Burrell MD Assigned Heart and Vascular Provider 10/05/20 04/02/22 Diana Desir, [facility] [address] [place] [address] Pharmacist Pharmacist 04/17/21 Rain Galaviz PA-C [address] [facility] [address] [facility] [place] [address] Physician Life Agent Dermatology 04/28/21 Summer Lara MD [address] [place] [address] Assigned OBGYN Provider 05/10/2105/23 Summer Lara MD [address] [place] [address] [place] [address] Assigned OBGYN Provider 05/31/21 2 Summer Lara MD [address] [place] [address] Assigned OBGYN Provider 05/24/2105/30 Tavia Wyatt MD [address] [place] [address] Dermatology 07/14/21 Johnny Murillo MD [facility] [address] [place] [address] Assigned Musculoskeletal Provider 08/30/21 03/17/22 Erica Farrell APRN [facility] 6405 [facility] [address] [place] [address] Nurse Practitioner Cardiovascular Disease 09/09/21 Teresita Bean [facility] [address] [place] [phone] Pharmacist Pharmacist 09/24/21 09/29/21 Tavia Wyatt MD [address] [place] [address] Assigned Surgical Provider 11/29/21 05/07/22 [facility] 3033 [place] [address] Assigned MTM Pharmacist 01/02/22 Rich Barrett MD [address] [place] [address] Physician Ophthalmology 01/21/22 Neil Kent MD 500 [place] [address] Dermatology 02/24/22 Roney Story DPM [address] [facility] [address] [place] [address] Assigned Musculoskeletal Provider 03/20/22 08/13/22 Erica Farrell APRN CROP AND SOIL SCIENTIST 1700 [place] [address] Assigned Heart and Vascular Provider 04/03/22 04/16/22 Diana Desir, [facility] [address] [place] [address] Assigned MTM Pharmacist 04/07/22 Jelena David OD [address] [facility] [place] [address] Assigned Surgical Provider 05/08/22 10/08/22 Galo Burrell MD Assigned Heart and Vascular Provider 04/17/22 06/11/22 Livan Sharif MD 6405 [facility] [address] [place] 615405 Cardiovascular Disease 05/14/22 Livan Sharif MD [address] [place] [phone] [place], [place] 460725 Assigned Heart and Vascular Provider 06/12/22 07/23/22 Catherine Cm MD [address] [place] [address] [place] 605325 Cardiovascular Disease 07/21/22 Valery Veronica, PA-C [address] [place] [address] [phone] Physician Life Agent Dermatology 07/21/22 Catherine Cm MD [address] [place] [address] [place] 824035 Assigned Heart and Vascular Provider 07/24/22 11/05/22 Johnny Murillo MD [address] [place] [address] 719144 Assigned Musculoskeletal Provider 08/14/22 10/08/22 Brea Quinn APRN CROP AND SOIL SCIENTIST [address] [place] [address] 299185 Nurse Practitioner Dermatology 09/21/22 Brea Quinn APRN CROP AND SOIL SCIENTIST [address] [place] [address] [place] [id number] Assigned Surgical Provider 10/09/22 05/01/24 [place] [address] [place] [address] 329797 Assigned Musculoskeletal Provider 10/09/22 05/01/24 Livan Sharif MD [address] [facility] [address] [place] [address] Assigned Heart and Vascular Provider 11/06/22 11/12/22 Catherine Cm MD [address] [place] [address] Assigned Heart and Vascular Provider 11/13/22 05/27/23 Sydnie Martinez RN Personal Advocate & Liaison (PAL) Family Medicine 03/28/23 07/31/23 Alfonso Renteria MD 5775 [facility] 200 [place] [address] Assigned Neuroscience Provider 04/02/23 09/29/24 Cheng Todd PA-C [address] [place] [address] [id number] Assigned PCP 04/30/23 07/15/23 Radha Lomeli APRN CROP AND SOIL SCIENTIST [address] [place] [address] Assigned Heart and Vascular Provider 05/28/23 11/29/24 Jelena David OD [address] [facility] [place] [address] Ophthalmology 06/15/23 Pao Joseph RN Personal Advocate & Liaison (PAL) Nurse 08/01/23 11/07/23 Esha Grimm PA-C [address] [place] [address] Assigned PCP 07/16/23 Valery Veronica PA-C [address] [place] [address] Physician Life Agent Dermatology 09/19/23 Rey Tay MD [address] [place] [address] MD Gastroenterology 09/20/23 Rocky Zepeda DO [address] [place] [address] Physician Gastroenterology 09/20/23 Philip Dumont MD [address] [place] [address] Physician Ophthalmology 09/22/23 Meredith Carrera PA-C [address] [place] [address] Assigned Gastroenterology Provider 11/01/23 Neil Kent MD [address] [place] [address] 628320 Dermatology 11/02/23 [place] [address] [facility] [place] [address] Neurological Surgery 12/26/23 Audrey Waite PA-C [address] [place] [address] Physician Life Agent Dermatology 02/28/24 Valery Veronica PA-C [address] [place] [address] Physician Life Agent Dermatology 04/10/24 Herminia Hatch MD 1875 [place] [address] Assigned Rheumatology Provider 07/02/24 Jelena David, SONJA [address] [facility] [place] [address] Ophthalmology 08/30/24 [place] [address] [place] [address] Assigned Neuroscience Provider 09/30/24 Maru Man PA-C [address] [place] [address] Physician Life Agent Dermatology 10/03/24 Maru Man PA-C [address] [place] [address] Physician Life Agent Dermatology 10/22/24 Jelena David, SONJA [facility] [facility] [place] [address] Assigned Surgical Provider 10/31/24 Fabiano Correa, MANAGER ADVERTISING [address] [place] [address] Assigned Heart and Vascular Provider 11/30/24 documented as of this encounter
--- OUTSIDE RECORDS SUMMARY | 2024-12-31 03:20 | XMS_ITS | Encounter Summary ---
Author Organization [place] Address [address] [place] [address] Care Team Providers Care Records Officer Name Role Phone Lita Oseguera Unavailable Unavailable Marija Edgar APRN DETENTION WORKER Primary Care Provider + Marija Edgar APRN DETENTION WORKER Unavailable [phone] Keisha Dotson MD Unavailable Diana Desir [facility] Unavailable Rain Galaviz PA-C Unavailable Tavia Wyatt MD Unavailable Erica Farrell APRN DETENTION WORKER Unavailable Rich Barrett MD Unavailable [phone] Neil Kent MD Unavailable Roney Story DPM Unavailable Diana Desir [facility] Unavailable Jelena David OD Unavailable [phone] Livan Sharif MD Unavailable Livan Sharif MD Unavailable Cahterine Cm MD Unavailable + Valery Veronica PA-C Unavailable Catherine Cm MD Unavailable + Johnny Murillo MD Unavailable [phone] Brea Quinn CHILD DAY CARE TEACHER DETENTION WORKER Unavailable [phone] Brea Quinn CHILD DAY CARE TEACHER DETENTION WORKER Unavailable [phone] Jose Francisco Johnson MD Unavailable Livan Sharif MD Unavailable Catherine Cm MD Unavailable + Sydnie Martinez RN Unavailable Unavailable Alfonso Renteria MD Unavailable [phone] Esha Grimm PA-C Primary Care Provider Cheng Todd PA-C Unavailable [phone] Radha Lomeli CHILD DAY CARE TEACHER DETENTION WORKER Unavailable Jelena David OD Unavailable Pao Joseph RN Unavailable Unavailable Esha Grimm PA-C Unavailable Valery Veronica PA-C Unavailable Rey Tay MD Unavailable Rocky Zepeda DO Unavailable Philip Dumont MD Unavailable Meredith Carrera PA-C Unavailable Neil Kent MD Unavailable Juan Pablo Emmanuel MD Unavailable Audrey Waite PA-C Unavailable Valery Veronica PA-C Unavailable Herminia Hatch MD Unavailable Jelena David OD Unavailable [phone] Juan Pablo Emmanuel MD Unavailable [phone] Maru Man PA-C Unavailable +[phone] Maru Man PA-C Unavailable +[phone] Jelena David OD Unavailable [phone] Fabiano Correa NP Unavailable [phone] Encounter Details Date Type Department Care Team (Late st Contact Info) Description 07/02/2022 MyC Medical Advice [address] [address] Diana Desir, [facility] [address] [place] [address] Social History Tobacco Use Types Packs/Day Years [...] often do you attend oriental orthodox or alevism serv ices? Never 09/22/2021 Do [...] points; Administer PHQ-9 if positive 1 05/13/2022 [facility] of Occupat ional [...] health care facility (including now)? No 09/22/2021 Flint Depression Scale Answer Date Recorded Flint Depression Score 5 01/14/2021 Last EPDS Self Harm Result Not on file 01/14 Education Answer Date Recorded What is the highest level of school you have completed or the highest degree you have received? 12th grade 08/07/2020 Comments No Sex and Gender Information Value Date Recorded Sex Assigned at Female 03/02/2021 5:45 PM CDT Legal Sex Female 4:13 AM SWITCH MAKER Gender Identity Female 03/02/2021 5:45 PM CDT Sexual Orientation Straight 02/28/2020 12 :51 AM CDT COVID-19 Exposure Response Date Recorded In the last 10 days, have yo u been in contact with someone who was confirmed or suspected to have Coronavirus/COVID-19? No / Unsure 06/25/2022 8:44 AM SWITCH MAKER documented as of this encounter Plan of Treatment Upcoming Encounters Date Type Department Care Team (Latest Contact Info) Description 01/02/2025 1:10 PM CDT Ancillary Procedure [address] [phone] Lauren Claudio PA-C [address] [place], [place] [phone] 01/17/2025 10:00 AM CDT Appointment [facility] Respiratory [address] [place] [address] Lauren Claudio PA-C [address] [place], [place] [phone] 04/16/2025 11:00 AM CDT Virtual Visit [facility] [address] [place] [phone] Meredith Carrera PA-C [address] [place] [address] documented as of this encounter Visit Diagnoses [...] documented as of this encounter Care Teams Records Officer Relationship Specialty Start Date End Date Marija Edgar APRN CNP PCP - General Nurse Practitioner 04/30/20 04/14/23 Esha Grimm PA-C [address] [place] [phone] PCP - General Family Medicine 05/04/23 Lita Oseguera Personal Advocate & Liaison (PAL) 02/28/20 03/27/23 Marija Edgar APRN DETENTION WORKER Assigned PCP 06/08/20 04/29/23 eKisha Dotson MD [address] [place] [address] Assigned Neuroscience Provider 06/04/20 04/01/23 [facility] [address] [place] [address] Pharmacist Pharmacist 04/17/21 Rain Galaviz PA-C [address] [place] [address] [address] [facility] [place] [address] Physician Rating Specialist Dermatology 04/28/21 Tavia Wyatt MD [address] [place] [address] [address] [facility] [place] [address] Dermatology 07/14/21 Erica Farrell APRN DETENTION WORKER [address] [place] [address] Nurse Practitioner Cardiovascular Disease 09/09/21 Rich Barrett MD [address] [place] 210765 Physician Ophthalmology 01/21/22 Neil Kent MD [address] [place] [address] Dermatology 02/24/22 Roney Story DPM [address] [facility] [address] [place] [address] Assigned Musculoskeletal Provider 03/20/22 08/13/22 [facility] [address] [place] [address] Assigned MTM Pharmacist 04/07/22 Jelnea David OD 3305 [facility] [place] [address] Assigned Surgical Provider 05/08/22 10/08/22 Livan Sharif MD [address] [place] [address] Cardiovascular Disease 05/14/22 Livan Sharif MD [address] [place] [address] Assigned Heart and Vascular Provider 06/12/22 07/23/22 Catherine Cm MD [address] [place] [address] Cardiovascular Disease 07/21/22 Valery Veronica PAUcheC 909 [place] [address] Physician Rating Specialist Dermatology 07/21/22 Catherine Cm MD [address] [place] [address] Assigned Heart and Vascular Provider 07/24/22 11/05/22 Johnny Murillo MD [address] [place] [address] Assigned Musculoskeletal Provider 08/14/22 10/08/22 Brea Quinn APRN DETENTION WORKER [address] [place] [address] Nurse Practitioner Dermatology 09/21/22 Brea Quinn APRN DETENTION WORKER 6401 [facility] [place] [address] Assigned Surgical Provider 10/09/22 05/01/24 [place] [address] [address] Assigned Musculoskeletal Provider 10/09/22 05/01/24 Livan Sharif MD [address] [facility] [address] [place] [address] Assigned Heart and Vascular Provider 11/06/22 11/12/22 Catherine Cm MD 6405 [facility] [address] [place] [address]45 Assigned Heart and Vascular Provider 11/13/22 05/27/23 Sydnie Martinez RN Personal Advocate & Liaison (PAL) Family Medicine 03/28/23 07/31/23 Alfonso Renteria MD 5775 [facility] [address] [place] [address] Assigned Neuroscience Provider 04/02/23 09/29/24 Cheng Todd PA-C [address] [place] [address] Assigned PCP 04/30/23 07/15/23 Radha Lomeli APRN DETENTION WORKER 6405 [facility] [address] [place] [address] Assigned Heart and Vascular Provider 05/28/23 11/29/24 Jelena David OD 3305 [facility] [place] [address] Ophthalmology 06/15/23 Pao Joseph, VJ Personal Advocate & Liaison (PAL) Nurse 08/01/23 11/07/23 Esha Grimm PA-C [address] [place] [phone] Assigned PCP 07/16/23 Valery Veronica PA-C [address] [place] [address] Physician Rating Specialist Dermatology 09/19/23 Rey Tay MD [address] [place] [address] Gastroenterology 09/20/23 Rocky Zepeda DO [address] [place] [address] Physician Gastroenterology 09/20/23 Philip Dumont MD [address] [place] [address] Physician Ophthalmology 09/22/23 Meredith Carrera PA-C [address] [place] [address] Assigned Gastroenterology Provider 11/01/23 Neil Kent MD [address] [address] Dermatology 11/02/23 [place] [address] [place], [place] [address] Neurological Surgery 12/26/23 Audrey Waite PA-C [address] [place] [address] Physician Rating Specialist Dermatology 02/28/24 Valery Veronica PA-C [address] [place] [address] Physician Rating Specialist Dermatology 04/10/24 Herminia Hatch MD [address] [place] [address] [id number] Assigned Rheumatology Provider 07/02/24 [place] [address] [place] [address] [place] [address] Ophthalmology 08/30/24 [place] [address] [place] [address] Assigned Neuroscience Provider 09/30/24 Maru Man PA-C [address] [place] [address] Physician Rating Specialist Dermatology 10/03/24 Maru Man PA-C [address] [place] [address] Physician Rating Specialist Dermatology 10/22/24 Jelena David OD 3305 [facility] [place] [address] Assigned Surgical Provider 10/31/24 Fabiano Correa NP [address] [place] [address] Assigned Heart and Vascular Provider 11/30/24 documented as of this encounter
--- OUTSIDE RECORDS SUMMARY | 2024-12-31 03:20 | XMS_ITS | Encounter Summary ---
Author Organization [place] Address [address] [place] [address] Care Team Providers Care Hooking Machine Operator Name Role Phone Lita Oseguera Unavailable Unavailable Marija Edgar APRN ARMOURED CAR ESCORT Primary Care Provider + Marija Edgar APRN ARMOURED CAR ESCORT Unavailable Keisha Dotson MD Unavailable Diana Desir [facility] Unavailable [phone] Rain Galaviz PA-C Unavailable Tavia Wyatt MD Unavailable Erica Farrell APRN ARMOURED CAR ESCORT Unavailable Rich Barrett MD Unavailable [phone] Neil Kent MD Unavailable Diana Desir [facility] Unavailable Livan Sharif MD Unavailable Catherine Cm MD Unavailable + Valery Veronica PA-C Unavailable [phone] Catherine Cm MD Unavailable + Brea Quinn DOCUMENT SPECIALIST ARMOURED CAR ESCORT Unavailable [phone] Brea Quinn DOCUMENT SPECIALIST ARMOURED CAR ESCORT Unavailable [phone] Jose Francisco Johnson MD Unavailable Livan Sharif MD Unavailable ChivoraynaCatherine boothe MD Unavailable + Sydnie Martinez RN Unavailable Unavailable Alfonso Renteria MD Unavailable Esha Grimm PA-C Primary Care Provider Cheng Todd PA-C Unavailable [phone] Radha Lomeli DOCUMENT SPECIALIST ARMOURED CAR ESCORT Unavailable [phone] Jelena David OD Unavailable [phone] Pao Joseph RN Unavailable Unavailable Esha Grimm PA-C Unavailable [phone] Valery Veronica PA-C Unavailable Rey Tay MD Unavailable Rocky Zepeda DO Unavailable Philip Dumont MD Unavailable [phone] Meredith Carrera PA-C Unavailable [phone] Neil Kent MD Unavailable Juan Pablo Emmanuel MD Unavailable Audrey Waite PA-C Unavailable [phone] Valery Veronica PA-C Unavailable Herminia Hatch MD Unavailable Jelena David OD Unavailable [phone] Juan Pablo Emmanuel MD Unavailable Maru Man PA-C Unavailable [phone] Maru aMn PA-C Unavailable [phone] Jelena David OD Unavailable Fabiano Correa ORDER TO DELIVERY SUPERVISOR Unavailable [phone] Encounter Details Date Type Department Care Team (Late st Contact Info) Description 10/22/2022 MyC Medical Advice [facility] [place] [address] [facility] [address] [place] [address] [place] [address] [facility] 300 [place], [place] 6[address] Social History Tobacco Use Types Packs/Day Years [...] Answer Date Recorded PHQ-2 Score 1 10/11/2022 [facility] of Occupat ional Health - Occupational Stress [...] a skilled nursing (including now)? No 09/22/2021 Perrin Depression Scale Answer Date Recorded Perrin Depression Score 5 01/14/2021 Last EPDS Self Harm Result Not on file 01/14 Education Answer Date Recorded What is the highest level of school you have completed or the highest degree you have received? 12th grade 08/07/2020 Comments No Sex and Gender Information Value Date Recorded Sex Assigned at Female 03/02/2021 5:45 PM CDT Legal Sex Female 4:13 AM QUALITY ASSURANCE LAB TECHNICIAN Gender Identity Female 03/02/2021 5:45 [...] 01/02/2025 1:10 PM CDT Ancillary Procedure [facility] [address] [place] [phone] Lauren Claudio PA-C [address] [place] [address] 01/17/2025 10:00 AM CDT Appointment [facility] [address] [place] [phone] Lauren Claudio PA-C [address] [place], [place] [phone] 04/16/2025 11:00 AM CDT Virtual Visit [facility] [place] [address] [place] [address] 4th [place] [phone] Meredith Carrera PA-C 909 [place] [address] documented as of this encounter Visit Diagnoses [...] documented as of this encounter Care Teams Hooking Machine Operator Relationship Specialty Start Date End Date Marija Edgar APRN ARMOURED CAR ESCORT PCP - General Nurse Practitioner 04/30/20 04/14/23 Esha Grimm PA-C [address] [place] [phone] PCP - General Family Medicine 05/04/23 Lita Oseguera Personal Advocate & Liaison (PAL) 02/28/20 03/27/23 Marija Edgar APRN ARMOURED CAR ESCORT Assigned PCP 06/08/20 04/29/23 Keisha Dotson MD 909 [place] [address] Assigned Neuroscience Provider 06/04/20 04/01/23 [facility] 3033 [place] [address] Pharmacist Pharmacist 04/17/21 Rain Galaviz PA-C [address] [place] [address] [address] [facility] [place] [address] Physician Micro Computer Specialist Dermatology 04/28/21 Tavia Wyatt MD [address] [place] [address] [address] [facility] [facility] [place] [address] Dermatology 07/14/21 Erica Farrell APRN ARMOURED CAR ESCORT [address] [place] [address]34[address] Nurse Practitioner Cardiovascular Disease 09/09/21 Rich Barrett MD [address] [place] [address] Physician Ophthalmology 01/21/22 Neil Kent MD 500 [place], [place] 7[address]15 Dermatology 02/24/22 Diana Desir, [facility] [address] [place], [place] 205656 Assigned MTM Pharmacist 04/07/22 Livan Sharif MD [address] [place], [place] 7[address] Cardiovascular Disease 05/14/22 Catherine Cm MD [address] [place], [place] 932095 Cardiovascular Disease 07/21/22 Valery Veronica, PA-C 909 [place], [place] 839355 Physician Micro Computer Specialist Dermatology 07/21/22 Catherine Cm MD [address] [facility] [address] [place], [place] 322935 Assigned Heart and Vascular Provider 07/24/22 11/05/22 Brea Quinn APRN ARMOURED CAR ESCORT 500 [place], [place] 582095 Nurse Practitioner Dermatology 09/21/22 Brea Quinn APRN ARMOURED CAR ESCORT [address] [place] [address] 486452 Assigned Surgical Provider 10/09/22 05/01/24 [place] [address] [place] [address] Assigned Musculoskeletal Provider 10/09/22 05/01/24 Livan Sharif MD [address] [place] [address] Assigned Heart and Vascular Provider 11/06/22 11/12/22 Catherine Cm MD [address] [place] [address] Assigned Heart and Vascular Provider 11/13/22 05/27/23 Sydnie Martinez RN Personal Advocate & Liaison (PAL) Family Medicine 03/28/23 07/31/23 Alfonso Renteria MD 5775 [facility] 200 [place] [address] Assigned Neuroscience Provider 04/02/23 09/29/24 Cheng Todd PA-C [address] [place] [address] [id number] Assigned PCP 04/30/23 07/15/23 Radha Lomeli APRN ARMOURED CAR ESCORT [address] [place] [address] Assigned Heart and Vascular Provider 05/28/23 11/29/24 Jelena David OD [address] [facility] [place] [id number] MD Ophthalmology 06/15/23 Pao Joseph, RN Personal Advocate & Liaison (PAL) Nurse 08/01/23 11/07/23 Esha Grimm PA-C [address] [place] [phone] Assigned PCP 07/16/23 Valery Veronica PA-C [address] [place] [address] Physician Micro Computer Specialist Dermatology 09/19/23 Rey Tay MD [address] [place] [address] 837895 MD Gastroenterology 09/20/23 Rocky Zepeda DO [address] [place] [address] 617945 Physician Gastroenterology 09/20/23 Philip Dumont MD [address] [place] [address] 837015 Physician Ophthalmology 09/22/23 Meredith Carrera PA-C [address] [place] [address]305 Assigned Gastroenterology Provider 11/01/23 Neil Kent MD [address] [place] [address] 240690 Dermatology 11/02/23 [place] [address] [place] [address] Neurological Surgery 12/26/23 Audrey Waite PA-C 500 [place] [address] Physician Micro Computer Specialist Dermatology 02/28/24 Valery Veronica PA-C 753125 [address], [place] [address] Physician Micro Computer Specialist Dermatology 04/10/24 Herminia Hatch MD [address] [place] [address] Assigned Rheumatology Provider 07/02/24 Jelena David, SONJA [address] [place] [address] [place] [address] Ophthalmology 08/30/24 [place] [address] [place] [address] Assigned Neuroscience Provider 09/30/24 Maru Man PA-C [address] [place] [address] Physician Micro Computer Specialist Dermatology 10/03/24 Maru Man PA-C [address] [place] [address] Physician Micro Computer Specialist Dermatology 10/22/24 eJlena David, SONJA [address] [place] [address] [place] [address] Assigned Surgical Provider 10/31/24 Fabiano Correa, ORDER TO DELIVERY SUPERVISOR [address] [place] [address] Assigned Heart and Vascular Provider 11/30/24 documented as of this encounter
--- OUTSIDE RECORDS SUMMARY | 2024-12-31 03:20 | XMS_ITS | Encounter Summary ---
Author Organization [facility] Address [address] [place] [address] Care Team Providers Care Tack Coverer Name Role Phone Lita Oseguera Unavailable Unavailable Marija Edgar APRN ATTACHER Primary Care Provider + Marija Edgar APRN ATTACHER Unavailable Keisha Dotson MD Unavailable Diana Desir [facility] Unavailable Rain Galaviz PA-C Unavailable Tavia Wyatt MD Unavailable [phone] Erica Farrell APRN ATTACHER Unavailable Rich Barrett MD Unavailable [phone] Neil Kent MD Unavailable Diana Desir [facility] Unavailable Jelena David OD Unavailable Livan Sharif MD Unavailable Catherine Cm MD Unavailable + Valery Veronica PA-C Unavailable Catherine Cm MD Unavailable + Johnny Murillo MD Unavailable [phone] Brea Quinn CRACKING STILL OPERATOR ATTACHER Unavailable [phone] Brea Quinn CRACKING STILL OPERATOR ATTACHER Unavailable [phone] Jose Francisco Johnson MD Unavailable Livan Sharif MD Unavailable Catherine Cm MD Unavailable + Sydnie Martinez RN Unavailable Unavailable Alfonso Renteria MD Unavailable [phone] Esha Grimm PA-C Primary Care Provider Cheng Todd PA-C Unavailable [phone] Radha Lomeli APRN ATTACHER Unavailable Jelena David OD Unavailable Pao Joseph RN Unavailable Unavailable Esha Grimm PA-C Unavailable [phone] Valery Veronica PA-C Unavailable Rey Tay MD Unavailable Rocky Zepeda DO Unavailable Philip Dumont MD Unavailable Meredith Carrera PA-C Unavailable [phone] Neil Kent MD Unavailable Juan Pablo Emmanuel MD Unavailable Audrey Waite PA-C Unavailable Valery Veronica PA-C Unavailable Herminia Hatch MD Unavailable Jelena David OD Unavailable [phone] Juan Pablo Emmanuel MD Unavailable Maru Man PA-C Unavailable + Maru Man PA-C Unavailable + Jelena David OD Unavailable Fabiano Correa FIRER HELPER Unavailable [phone] Encounter Details Date Type Department Care Team (Late st Contact Info) Description 10/06/2022 MyC Medical Advice [facility] [address] [place] [address] [place] [phone] Brea Quinn APRN [facility] [address] [facility] [address] Social History Tobacco Use Types [...] How often do you attend islam or faith serv ices? Never 09/22/2021 Do [...] points; Administer PHQ-9 if positive 1 10/10/2022 [facility] Occupat ional Health [...] in a longterm (including now)? No 09/22/2021 [place] Depression Scale Answer Date Recorded [place] [...] CDT Legal Sex Female 4:13 AM GENERAL OPERATOR Gender Identity Female 03/02/2021 5:45 PM [...] 01/02/2025 1:10 PM CDT Ancillary Procedure [address] [phone] Lauren Claudio PA-C [address] [place] [address] 01/17/2025 10:[address] [facility] Respiratory [address] [place] [phone] Lauren Claudio PA-C [address] [place] [address] 04/16/2025 11:00 AM CDT Virtual Visit [facility] [address] 4th [place] [address] Meredith Carrera PA-C [address] [place] [address] documented as of this encounter Visit Diagnoses [...] Total Score: 5 08/27/19 23 1:14 PM GENERAL OPERATOR documented as of this encounter Care Teams Tack Coverer Relationship Specialty Start Date End Date Marija Edgar APRN CNP PCP - General Nurse Practitioner 04/30/20 04/14/23 Esha Grimm PA-C [address] [place] [phone] PCP - General Family Medicine 05/04/23 Lita Oseguera Personal Advocate & Liaison (PAL) 02/28/20 03/27/23 Marija Edgar APRN ATTACHER Assigned PCP 06/08/20 04/29/23 Keisha Dotson MD [address] [place], [place] 018445 Assigned Neuroscience Provider 06/04/20 04/01/23 [facility] [address] [place], [place] 3[address]26 Pharmacist Pharmacist 04/17/21 Rain Galaviz PA-C [address] [place] [address] [address] [place] [address] Physician Bail Bond Agent Dermatology 04/28/21 Tavia Wyatt MD [address] [place] [address] [address] [facility] [place] [address] Dermatology 07/14/21 Erica Farrell APRN ATTACHER [address] [place] 377645 Nurse Practitioner Cardiovascular Disease 09/09/21 Rich Barrett MD [address] [place] 713615 Physician Ophthalmology 01/21/22 Neil Kent MD 500 [place], [place] 645455 Dermatology 02/24/22 Diana Desir, [facility] [address] [place] [address] Assigned MTM Pharmacist 04/07/22 Jelena David OD [address] [facility] [place] [address] Assigned Surgical Provider 05/08/22 10/08/22 Livan Sharif MD [address] [place] 908075 Cardiovascular Disease 05/14/22 Catherine Cm MD [address] [place] 404535 Cardiovascular Disease 07/21/22 Valery Veronica, PA-C [address] [place] [address] 738025 Physician Bail Bond Agent Dermatology 07/21/22 Catherine Cm MD [address] [place], [place] 372625 Assigned Heart and Vascular Provider 07/24/22 11/05/22 Johnny Murillo MD [address] [id number] Assigned Musculoskeletal Provider 08/14/22 10/08/22 Brea Quinn APRN ATTACHER [address] [place] [address] 160105 Nurse Practitioner Dermatology 09/21/22 Brea Quinn, CRACKING STILL OPERATOR ATTACHER 64[address] [facility] [place] [address] Assigned Surgical Provider 10/09/22 05/01/24 [place] [address] [facility] [address] [place] [address] Assigned Musculoskeletal Provider 10/09/22 05/01/24 Livan Sharif MD [address] [place] [place] [id number] [place] [address] Assigned Heart and Vascular Provider 11/06/22 11/12/22 Catherine Cm MD [address] [place] [place] [address] [place] [address] Assigned Heart and Vascular Provider 11/13/22 05/27/23 Sydnie Martinez RN Personal Advocate & Liaison (PAL) Family Medicine 03/28/23 07/31/23 Alfonso Renteria MD [address]75 [facility] 200 [place] [address] Assigned Neuroscience Provider 04/02/23 09/29/24 Cheng Todd PA-C [address] [place] [address] Assigned PCP 04/30/23 07/15/23 Radha Lomeli, ARLENE ATTACHER [address] [facility] [address] [place] [address] Assigned Heart and Vascular Provider 05/28/23 11/29/24 Frankie Jelena Templetone, SONJA [address] [facility] [address] MD Ophthalmology 06/15/23 Pao Joseph, RN Personal Advocate & Liaison (PAL) Nurse 08/01/23 11/07/23 Esha Grimm PA-C [address] [place] [phone] Assigned PCP 07/16/23 Valery Veronica PA-C [address] [place] [address] 494515 Physician Bail Bond Agent Dermatology 09/19/23 Rey Tay MD [address] [place] [address] Gastroenterology 09/20/23 Rocky Zepeda DO [address] [place] [address] 167115 Physician Gastroenterology 09/20/23 Philip Dumont MD [address] [place] [address] 210095 Physician Ophthalmology 09/22/23 Meredith Carrera PA-C [address] [place] [address] 639655 Assigned Gastroenterology Provider 11/01/23 Neil Kent MD [address] 627600 Dermatology 11/02/23 [place] [address] [place] [address] Neurological Surgery 12/26/23 Audery Waite PA-C 500 [place] [address] Physician Bail Bond Agent Dermatology 02/28/24 Valery Veronica PA-C [address] [place], [place] [address] Physician Bail Bond Agent Dermatology 04/10/24 Herminia Hatch MD [address] [place] [address] [id number] Assigned Rheumatology Provider 07/02/24 Jelena David, SONJA [address] [place] [address] [place] [address] Ophthalmology 08/30/24 [place] [address] [place] [address] Assigned Neuroscience Provider 09/30/24 Maru Man PA-C [address] [place] [address] Physician Bail Bond Agent Dermatology 10/03/24 Maru Man PA-C [address] [place] [address] Physician Bail Bond Agent Dermatology 10/22/24 Jelena David OD [address] [facility] [place] [address] Assigned Surgical Provider 10/31/24 Fabiano Correa NP [address] [place] [address] Assigned Heart and Vascular Provider 11/30/24 documented as of this encounter
--- OUTSIDE RECORDS SUMMARY | 2024-12-31 03:20 | XMS_ITS | Encounter Summary ---
Author Organization [facility] Address [address] [place] [address] Care Team Providers Care Wine Steward/Stewardess Name Role Phone Lita Oseguera Unavailable Unavailable Marija Edgar APRN MAJOR ASSEMBLER Primary Care Provider + Marija Edgar APRN MAJOR ASSEMBLER Unavailable Keisha Dotson MD Unavailable Diana Desir [facility] Unavailable Rain Galaviz PA-C Unavailable Tavia Wyatt MD Unavailable Erica Farrell APRN MAJOR ASSEMBLER Unavailable Rich Barrett MD Unavailable [phone] Neil Kent MD Unavailable Diana Desir [facility] Unavailable Livan Sharif MD Unavailable Catherine Cm MD Unavailable + Valery Veronica PA-C Unavailable Catherine Cm MD Unavailable + Brea Quinn PULMONOLOGIST INTENSIVIST MAJOR ASSEMBLER Unavailable Brea Quinn PULMONOLOGIST INTENSIVIST MAJOR ASSEMBLER Unavailable [phone] Jose Francisco Johnson MD Unavailable Livan Sharif MD Unavailable ChivoraynaCatherine boothe MD Unavailable + Sydnie Martinez RN Unavailable Unavailable Alfonso Renteria MD Unavailable Esha Grimm PA-C Primary Care Provider Cheng Todd PA-C Unavailable [phone] Radha Lomeli PULMONOLOGIST INTENSIVIST MAJOR ASSEMBLER Unavailable [phone] Jelena David OD Unavailable [phone] Pao Joseph RN Unavailable Unavailable Esha Grimm PA-C Unavailable [phone] Valery Veronica PA-C Unavailable Rey Tay MD Unavailable Rocky Zepeda DO Unavailable Philip Dumont MD Unavailable [phone] Meredith Carrera PA-C Unavailable [phone] Neil Kent MD Unavailable Juan Pablo Emmanuel MD Unavailable Audrey Waite PA-C Unavailable [phone] Valery Veronica PA-C Unavailable Herminia Hatch MD Unavailable Jelena David OD Unavailable [phone] Juan Pablo Emmanuel MD Unavailable Maru Man PA-C Unavailable [phone] Maru Man PA-C Unavailable [phone] Jelena David OD Unavailable Fabiano Correa TRUCK DRIVER FLATBED Unavailable [phone] Encounter Details Date Type Department Care Team (Late st Contact Info) Description 10/22/2022 MyC Medical Advice [facility] [address] [place] [phone] Lauren Claudio PABaldo [address] [place] [address] Social History Tobacco Use Types Packs/Day [...] How often do you attend faith or church serv ices? Never 09/22/2021 Do [...] Recorded PHQ-2 Score 1 10/11/2022 [facility] of Occupat ional Health - Occupational Stress [...] in a fci (including now)? No 09/22/2021 Barclay Depression Scale Answer Date Recorded Barclay Depression Score 5 01/14/2021 Last EPDS Self Harm Result Not on file 01/14 Education Answer Date Recorded What is the highest level of school you have completed or the highest degree you have received? 12th grade 08/07/2020 Comments No Sex and Gender Information Value Date Recorded Sex Assigned at Female 03/02/2021 5:45 PM CDT Legal Sex Female 4:13 AM VALUE STREAM COACH Gender Identity Female 03/02/2021 5:45 PM [...] 01/02/2025 1:10 PM CDT Ancillary Procedure [address] [phone] Lauren Claudio PA-C [address] [place] [address] 01/17/2025 10:00 AM CDT Appointment [facility] Respiratory [address] [place] [phone] Lauren Claudio PA-C [address] [place] [address] 04/16/2025 11:00 AM CDT Virtual Visit [facility] [address] 4th [place] [phone] Meredith Carrera PA-C [address] [place] [address] documented as of this encounter Visit Diagnoses [...] documented as of this encounter Care Teams Wine Steward/Stewardess Relationship Specialty Start Date End Date Marija Edgar APRN MAJOR ASSEMBLER PCP - General Nurse Practitioner 04/30/20 04/14/23 Esha Grimm PA-C [address] [place] [phone] PCP - General Family Medicine 05/04/23 Lita Oseguera Personal Advocate & Liaison (PAL) 02/28/20 03/27/23 Marija Edgar APRN MAJOR ASSEMBLER Assigned PCP 06/08/20 04/29/23 Keisha Dotson MD [address] [place] [address] Assigned Neuroscience Provider 06/04/20 04/01/23 Diana Desir, [facility] [address] [place] [address] Pharmacist Pharmacist 04/17/21 Rain Galaviz PA-C [address] [place] [address] [address] [place] [address] Physician Boat Garnisher Dermatology 04/28/21 Tavia Wyatt MD [address] [place] [address] [address] RA[address] [facility] [place] [facility] [address] Dermatology 07/14/21 Erica Farrell APRN MAJOR ASSEMBLER [address] [place] [address] Nurse Practitioner Cardiovascular Disease 09/09/21 Rich Barrett MD [address] [place] [address] Physician Ophthalmology 01/21/22 Neil Kent MD 500 [place] [address] Dermatology 02/24/22 Diana Desir, [facility] [address] [place] [address] Assigned MTM Pharmacist 04/07/22 Livan Sharif MD [address] [place] [address] Cardiovascular Disease 05/14/22 Catherine Cm MD [address] [place] [address] Cardiovascular Disease 07/21/22 Valery Veronica, PAUcheC [address] [place] [address] 735915 Physician Boat Garnisher Dermatology 07/21/22 Catherine Cm MD [address] [place] [address] Assigned Heart and Vascular Provider 07/24/22 11/05/22 Brea Quinn APRN MAJOR ASSEMBLER [address] [place] [address] 859265 Nurse Practitioner Dermatology 09/21/22 Bera Quinn APRN MAJOR ASSEMBLER [address] [place] [address] [place] [address] Assigned Surgical Provider 10/09/22 05/01/24 [place] [address] [facility] [place] [address] Assigned Musculoskeletal Provider 10/09/22 05/01/24 Livan Sharif MD [address] [place] [address] Assigned Heart and Vascular Provider 11/06/22 11/12/22 Catherine Cm MD [address] [place] [address] Assigned Heart and Vascular Provider 11/13/22 05/27/23 Sydnie Martinez RN Personal Advocate & Liaison (PAL) Family Medicine 03/28/23 07/31/23 Alfonso Renteria MD [address] [facility] 200 [place] [address] Assigned Neuroscience Provider 04/02/23 09/29/24 Cheng Todd PA-C [address] [place] [address] [id number] Assigned PCP 04/30/23 07/15/23 Radha Lomeli APRN MAJOR ASSEMBLER [address] [place] [address] Assigned Heart and Vascular Provider 05/28/23 11/29/24 Jelena David OD [address] [facility] [address] Ophthalmology 06/15/23 Pao Joseph, VJ Personal Advocate & Liaison (PAL) Nurse 08/01/23 11/07/23 Esha Grimm PA-C [address] [place] [phone] Assigned PCP 07/16/23 Valery Veronica PA-C [address] [place] [address] 552745 Physician Boat Garnisher Dermatology 09/19/23 Rey Tay MD [address] [place] [address] 742825 MD Gastroenterology 09/20/23 Rocky Zepeda DO [address] [place] [address] 622575 Physician Gastroenterology 09/20/23 Philip Dumont MD 6 [place] [address] Physician Ophthalmology 09/22/23 Meredith Carrera PA-C [address] [place] [address] 096425 Assigned Gastroenterology Provider 11/01/23 Neil Kent MD [address] [place] [address] Dermatology 11/02/23 [place] [address] [address] [facility] [place] [address] Neurological Surgery 12/26/23 Audrey Waite PA-C [address] [place] [address] Physician Boat Garnisher Dermatology 02/28/24 Valery Veronica PA-C 781319 [address], [place] [address] Physician Boat Garnisher Dermatology 04/10/24 Herminia Hatch MD [facility]5 [place], [place] 48538125 Assigned Rheumatology Provider 07/02/24 Jelena David OD [facility] [facility] [address] Ophthalmology 08/30/24 [place] [address] [place] [address] Assigned Neuroscience Provider 09/30/24 Maru Man PA-C [address] [place] [address] Physician Boat Garnisher Dermatology 10/03/24 Maru Man PA-C [address] [place] [address] Physician Boat Garnisher Dermatology 10/22/24 Jelena David OD [address] [place] [address] [place] [address] Assigned Surgical Provider 10/31/24 Fabiano [place], BRYCE [address] [place] [address] Assigned Heart and Vascular Provider 11/30/24 documented as of this encounter
--- OUTSIDE RECORDS SUMMARY | 2024-12-31 03:20 | XMS_ITS | Encounter Summary ---
Author Organization [place] Address [address] [place] [address] Care Team Providers Care Preparation Supervisor Canning Name Role Phone Lita Oseguera Unavailable Unavailable Marija Edgar APRN DYE JIG OPERATOR Primary Care Provider + Chanelle Mccann APRN CNM Unavailab le Kyara De La Fuente RN Unavailable [phone] Marija Edgar APRN DYE JIG OPERATOR Unavailable [phone] Mynor Broussard MD Unavailable Keisha Dotson MD Unavailable Galo Burrell MD Unavailable Unavailable Cristina Wood Unavailable Diana Desir [facility] Unavailable Rain Galaviz PA-C Unavailable Summer Lara MD Unavailable [phone] Summer Lara MD Unavailable [phone] Summer Lara MD Unavailable [phone] Tavia Wyatt MD Unavailable [phone] Johnny Murillo MD Unavailable Erica Farrell APRN DYE JIG OPERATOR Unavailable VikasTeresita [facility] Unavailable Tavia Wyatt MD Unavailable Diana Desir [facility] Unavailable Rich Barrett MD Unavailable [phone] Neil Kent MD Unavailable Roney Story DP Unavailable Erica Farrell APRN DYE JIG OPERATOR Unavailable Diana Desir [facility] Unavailable Jelena David Unavailable Galo Burrell MD Unavailable Unavailable Livan Sharif MD Unavailable Livan Sharif MD Unavailable Catherine Cm MD Unavailable + Valery Veronica-C Unavailable [phone] Catherine Cm MD Unavailable + Johnny Murillo MD Unavailable [phone] Brea Quinn CUSHION INSTALLER DYE JIG OPERATOR Unavailable [phone] Brea Quinn CUSHION INSTALLER DYE JIG OPERATOR Unavailable [phone] Jose Francisco Johnson MD Unavailable Livan Sharif MD Unavailable Catherine Cm MD Unavailable + Sydnie Martinez RN Unavailable Unavailable Alfonso Renteria MD Unavailable Esha Grimm PA-C Primary Care Provider Cheng Todd PA-C Unavailable Radha Lomeli CUSHION INSTALLER DYE JIG OPERATOR Unavailable Jelena David OD Unavailable [phone] Pao Joseph RN Unavailable Unavailable AlfaJesusEsha M PA-C Unavailable [phone] Valery Veronica PA-C Unavailable [phone] Rey Tay MD Unavailable Rocky Zepeda DO Unavailable Philip Dumont MD Unavailable Meredith Carrera PA-C Unavailable Neil Kent MD Unavailable Juan Pablo Emmanuel MD Unavailable Audrey Waite PA-C Unavailable [phone] Valery Veronica PA-C Unavailable Herminia Hatch MD Unavailable Jelena David OD Unavailable Juan Pablo Emmanuel MD Unavailable Maru Man PA-C Unavailable Maru Man PA-C Unavailable Jelena David OD Unavailable Fabiano Correa NP Unavailable [phone] Encounter Details Date Type Department Care Team (Late st Contact Info) Description 02/06/2021 [facility] [address] [address] Bob Diop Social History Tobacco [...] you attend [employer] or hindu services? More than 4 times [...] Answer Date Recorded PHQ-2 Score 3 09/29/2020 [facility] - Occupational Stress [...] a nursing home (including now)? No 08/11/2020 [place] Depression Scale Answer Date Recorded [place] Depression Score 5 01/14/2021 Last EPDS Self Harm Result Not on file 01/14 Education Answer Date Recorded What is the highest level of school you have completed or the highest degree you have received? 12th grade 08/07/2020 Comments No Sex and Gender Information Value Date Recorded Sex Assigned at Female 03/02/2021 5:45 PM CDT Legal Sex Female 4:13 AM JOURNEY LINEMAN Gender Identity Female 03/02/2021 5:45 PM CDT [...] Description 01/02/2025 1:10 PM CDT Ancillary Procedure [address] [address] Lauren Claudio PA-C [id number] [place] [address] 01/17/2025 10:00 AM CDT Appointment [facility] Res[facility] [place] [phone] Lauren Claudio PA-C [address] [place], [place] [phone] 04/16/2025 11:00 AM CDT Virtual Visit [facility] [address] [phone] Meredith Carrera PA-C [address] [place] [address] documented as of this encounter Visit Diagnoses Not on filedocumented in this encounter Additional Health Concerns Infection Onset Date Last Indicated Resolved Time Rule Out COVID-19 05/11/2021 05/11/2021 05/13/2021 10:18 AM CDT Rule Out COVID-19 07/13/2021 07/13/2021 07/14/2021 3:04 PM JOURNEY LINEMAN Rule Out COVID-19 07/18/2021 07/18/2021 07/20/2021 1:56 PM JOURNEY LINEMAN COVID-19 07/18/2021 07/18/2021 08/08/2021 11:3 9 PM JOURNEY LINEMAN Rule Out COVID-19 12/18/2021 12/18/2021 12/19/2021 11:34 AM CDT Rule Out COVID-19 02/24/2022 02/24/2022 02/25/2022 1:08 PM CDT Rule Out COVID-19 04/26/2022 04/26/2022 04/26/2022 6:47 AM CDT Rule Out COVID-19 05/17/2022 05/17/2022 05/17/2022 10:20 PM JOURNEY LINEMAN Rule Out COVID-19 06/09/2022 06/09/2022 06/09/2022 9:35 AM JOURNEY LINEMAN COVID-19 06/09/2022 06/09/2022 06/30/2022 11:4 1 PM JOURNEY LINEMAN Rule Out COVID-19 11/10/2022 11/10/2022 11/11/2022 [...] documented as of this encounter Care Teams Preparation Supervisor Canning Relationship Specialty Start Date End Date Marija Edgar APRN CNP PCP - General Nurse Practitioner 04/30/20 04/14/23 Esha Grimm PA-C [address] [place] [address] PCP - General Family Medicine 05/04/23 Lita Oseguera Personal Advocate & Liaison (PAL) 02/28/20 03/27/23 Chanelle Mccann APRN CNM [address] [place], [facility] 200 [place], [place] [address] Assigned OBGYN Provider 05/02/2005/09 Kyara De La Fuente, RN Specialty Manager Strategic Development Neurology 06/04/20 03/05/21 Marija Edgar APRN DYE JIG OPERATOR Assigned PCP 06/08/20 04/29/23 Mynor Broussard MD 6[address] [facility] 500 [place], [place] 962815 Assigned Surgical Provider 06/01/20 11/28/21 Keisha Dotson MD 9 [place], [place] 159905 Assigned Neuroscience Provider 06/04/20 04/01/23 Galo Burrell MD Assigned Heart and Vascular Provider 10/05/20 04/02/22 Cristina Wood Financial Resource Worker 02/09/21 02/09/21 Diana Desir [facility] [address] [place], [place] [address] Pharmacist Pharmacist 04/17/21 Rain Galaviz PA-C [address] [place] [address] [address] [facility] [place] [address] Physician Net Making Supervisor Dermatology 04/28/21 Summer Lara MD [address] [place] [address] Assigned OBGYN Provider 05/10/2105/23 Summer Lara MD [address] [place] [address] Assigned OBGYN Provider 05/31/21 Summer Lara MD [address] [place] [address] Assigned OBGYN Provider 05/24/2105/30 Tavia Wyatt MD [address] [place] [address] Dermatology 07/14/21 Johnny Murillo MD [facility] [place] [facility] [address] [place] [address] Assigned Musculoskeletal Provider 08/30/21 03/17/22 Erica Farrell APRN DYE JIG OPERATOR [address] [facility] [address] [place] [address] Nurse Practitioner Cardiovascular Disease 09/09/21 Teresita Bean, [facility] [address] [place] [address] Pharmacist Pharmacist 09/24/21 09/29/21 Tavia Wyatt MD [address] [place] [address] Assigned Surgical Provider 11/29/21 05/07/22 Diana Desir [facility] [address] [place] [address] Assigned MTM Pharmacist 01/02/22 Rich Barrett MD [address] [place] [address] Physician Ophthalmology 01/21/22 Neil Kent MD 500 [place] [address] Dermatology 02/24/22 Roney Story DPM [address] [facility] [address] [place] [address] Assigned Musculoskeletal Provider 03/20/22 08/13/22 Erica Farrell APRN DYE JIG OPERATOR 1700 [place] [address] Assigned Heart and Vascular Provider 04/03/22 04/16/22 Diana Desir, [facility] [address] [place] [address] Assigned MTM Pharmacist 04/07/22 Jelena David OD [address] [place] [address] [place] [address] Assigned Surgical Provider 05/08/22 10/08/22 Galo Burrell MD Assigned Heart and Vascular Provider 04/17/22 06/11/22 Livan Sharif MD [address] [place] [address] Cardiovascular Disease 05/14/22 Livan Sharif MD [address] [place] [address] Assigned Heart and Vascular Provider 06/12/22 07/23/22 Catherine Cm MD [address] [place] 787635 Cardiovascular Disease 07/21/22 Valery Veronica, PA-C [address] [place] [address] 289785 Physician Net Making Supervisor Dermatology 07/21/22 Catherine Cm MD [address] [address] [place] 286305 Assigned Heart and Vascular Provider 07/24/22 11/05/22 [place] [address] [place] [address] 243114 Assigned Musculoskeletal Provider 08/14/22 10/08/22 Brea Quinn APRN DYE JIG OPERATOR [address] [place] [address] 639625 Nurse Practitioner Dermatology 09/21/22 Brea Quinn APRN DYE JIG OPERATOR [address] [place] [address] [place] 369722 Assigned Surgical Provider 10/09/22 05/01/24 [place] [address] [place] [address] Assigned Musculoskeletal Provider 10/09/22 05/01/24 Livan Sharif MD [address] [place] [address] [place] 776875 Assigned Heart and Vascular Provider 11/06/22 11/12/22 Catherine Cm MD [address] [address] [place] [address] Assigned Heart and Vascular Provider 11/13/22 05/27/23 Sydnie Martinez RN Personal Advocate & Liaison (PAL) Family Medicine 03/28/23 07/31/23 Alfonso Renteria MD 57[address] [facility] 200 [place] [address] Assigned Neuroscience Provider 04/02/23 09/29/24 Cheng Todd PA-C [address] [place] [address] [id number] Assigned PCP 04/30/23 07/15/23 Radha Lomeli APRN DYE JIG OPERATOR [address] [place] [address] Assigned Heart and Vascular Provider 05/28/23 11/29/24 Jelena David OD [address] [facility] [place] [address] MD Ophthalmology 06/15/23 Pao Joseph, VJ Personal Advocate & Liaison (PAL) Nurse 08/01/23 11/07/23 Esha Grimm PA-C [address] [place] [address] Assigned PCP 07/16/23 Valery Veronica PA-C [address] [place] [address] 407495 Physician Net Making Supervisor Dermatology 09/19/23 Rey Tay MD [address] [place] [address] 284655 Gastroenterology 09/20/23 Rocky Zepeda DO [address] [place] [address] 156165 Physician Gastroenterology 09/20/23 Philip Dumont MD [address] [place] [address] 666745 Physician Ophthalmology 09/22/23 Meredith Carrera PA-C [address] [place] [address] 302195 Assigned Gastroenterology Provider 11/01/23 Neil Kent MD [address] [place] [address] 211000 Dermatology 11/02/23 [place] [address] [place] [address] Neurological Surgery 12/26/23 Audrey Waite PA-C 500 [place] [address] Physician Net Making Supervisor Dermatology 02/28/24 Valery Veronica PA-C [address] [place] [address] Physician Net Making Supervisor Dermatology 04/10/24 Herminia Hatch MD [address] [place] [address] [phone] Assigned Rheumatology Provider 07/02/24 Jelena David OD [address] [place] [address] [place] [address] Ophthalmology 08/30/24 [place] [address] [place] [address] Assigned Neuroscience Provider 09/30/24 Maru Man PA-C [address] [place] [address] Physician Net Making Supervisor Dermatology 10/03/24 Maru Man PA-C [address] [place] [address] Physician Net Making Supervisor Dermatology 10/22/24 Jelena David OD [address] [place] [address] [place] [address] Assigned Surgical Provider 10/31/24 Fabiano Correa, FENDER MECHANIC [address] [place] [address] Assigned Heart and Vascular Provider 11/30/24 documented as of this encounter
--- OUTSIDE RECORDS SUMMARY | 2024-12-31 03:20 | XMS_ITS | Encounter Summary ---
Author Organization [place] Address [address] [place] [address] Care Team Providers Care Fashion Photographer Name Role Phone Lita Oseguera Unavailable Unavailable Marija Edgar ONLINE PROJECT MANAGER HEAT READER Primary Care Provider + Chanelle Mccann ONLINE PROJECT MANAGER CNM Unavailab le Marija Edgar APRN HEAT READER Unavailable Mynor Broussard MD Unavailable [phone] Keisha Dotson MD Unavailable Galo Burrell MD Unavailable Unavailable Diana Desir [facility] Unavailable Rain Galaviz PA-C Unavailable Summer Lara MD Unavailable [phone] Summer Lara MD Unavailable [phone] Summer Lara MD Unavailable [phone] Tavia Wyatt MD Unavailable Johnny Murillo MD Unavailable Erica Farrell ONLINE PROJECT MANAGER HEAT READER Unavailable Teresita Bean [facility] Unavailable Tavia Wyatt MD Unavailable DesirDiana [facility] Unavailable Rich Barrett MD Unavailable Neil Kent MD Unavailable Roney StoryM Unavailable [phone] Erica Farrell APRN HEAT READER Unavailable Diana Desir [facility] Unavailable [phone] Jelena David OD Unavailable Galo Burrell MD Unavailable Unavailable Livan Sharif MD Unavailable Livan Sharif MD Unavailable Catherine Cm MD Unavailable + Valery VeronicaC Unavailable [phone] Catherine Cm MD Unavailable + Johnny Murillo MD Unavailable [phone] Brea Quinn ONLINE PROJECT MANAGER HEAT READER Unavailable [phone] Brea Quinn ONLINE PROJECT MANAGER HEAT READER Unavailable [phone] Jose Francisco Johnson MD Unavailable Livan Sharif MD Unavailable Catherine Cm MD Unavailable + Sydnie Martinez RN Unavailable Unavailable Alfonso Renteria MD Unavailable Esha GrimmC Primary Care Provider Cheng Todd-C Unavailable [phone] Radha Lomeli APRN HEAT READER Unavailable [phone] Jelena David OD Unavailable [phone] Pao Joseph RN Unavailable Unavailable Alfa, Esha M PA-C Unavailable [phone] Valery Veronica PA-C Unavailable [phone] Rey Tay MD Unavailable Rocky Zepeda DO Unavailable Philip Dumont MD Unavailable Meredith Carrera PA-C Unavailable [phone] Neil Kent MD Unavailable Juan Pablo Emmanuel MD Unavailable Audrey Waite PA-C Unavailable Valery Veronica PA-C Unavailable Herminia Hatch MD Unavailable Jelena David OD Unavailable Juan Pablo Emmanuel MD Unavailable Maru Man PA-C Unavailable Maru Man PA-C Unavailable Jelena David OD Unavailable Fabiano Correa NP Unavailable Encounter Details Date Type Department Care Team (Late st Contact Info) Description 05/05/2021 [facility] Medical Advice [address] [address] Lauren Gan, RN Social History [...] Date Recorded PHQ-2 Score 0 04/02/2021 [facility] of Occupat ional Health - Occupational Stress [...] in a usp (including now)? No 08/11/2020 [place] Depression Scale Answer Date Recorded [place] Depression Score 5 01/14/2021 Last EPDS Self Harm Result Not on file 01/14 Education Answer Date Recorded What is the highest level of school you have completed or the highest degree you have received? 12th grade 08/07/2020 Comments No Sex and Gender Information Value Date Recorded Sex Assigned at Female 03/02/2021 5:45 PM CDT Legal Sex Female 4:13 AM SUPERVISOR PAINTING SHIPYARD Gender Identity Female 03/02/2021 5:45 PM CDT [...] Description 01/02/2025 1:10 PM CDT Ancillary Procedure [address] [phone] Lauren Claudio PA-C [address] [place] [address] 01/17/2025 10:00 AM CDT Appointment [facility] Respiratory [address] [place] [phone] Lauren Claudio PA-C [address] [place], [place] [phone] 04/16/2025 11:00 AM CDT Virtual Visit [facility] [address] [place] [phone] Meredith Carrera PA-C [address] [place] [address] documented as of this encounter Visit Diagnoses Not on filedocumented in this encounter Additional Health Concerns Infection Onset Date Last Indicated Resolved Time Rule Out COVID-19 05/11/2021 05/11/2021 05/13/2021 10:18 AM CDT Rule Out COVID-19 07/13/2021 07/13/2021 07/14/2021 3:04 PM SUPERVISOR PAINTING SHIPYARD Rule Out COVID-19 07/18/2021 07/18/2021 07/20/2021 1:56 PM SUPERVISOR PAINTING SHIPYARD COVID-19 07/18/2021 07/18/2021 08/08/2021 11:3 9 PM SUPERVISOR PAINTING SHIPYARD Rule Out COVID-19 12/18/2021 12/18/2021 12/19/2021 11:34 AM CDT Rule Out COVID-19 02/24/2022 02/24/2022 02/25/2022 1:08 PM CDT Rule Out COVID-19 04/26/2022 04/26/2022 04/26/2022 6:47 AM CDT Rule Out COVID-19 05/17/2022 05/17/2022 05/17/2022 10:20 PM SUPERVISOR PAINTING SHIPYARD Rule Out COVID-19 06/09/2022 06/09/2022 06/09/2022 9:35 AM SUPERVISOR PAINTING SHIPYARD COVID-19 06/09/2022 06/09/2022 06/30/2022 11:4 1 PM SUPERVISOR PAINTING SHIPYARD Rule Out COVID-19 11/10/2022 11/10/2022 11/11/2022 12:17 [...] as of this encounter Care Teams Fashion Photographer Relationship Specialty Start Date End Date Marija Edgar APRN CNP PCP - General Nurse Practitioner 04/30/20 04/14/23 Esha Grimm PA-C [address] [place] [address] PCP - General Family Medicine 05/04/23 Lita Oseguera Personal Advocate & Liaison (PAL) 02/28/20 03/27/23 Chanelle Mccann APRN CNM [address] [place], [facility] 200 [place] [address] Assigned OBGYN Provider 05/02/2005/09 Marija Edgar APRN HEAT READER Assigned PCP 06/08/20 04/29/23 Mynor Broussard MD 6363 [facility] 500 [place] [address] Assigned Surgical Provider 06/01/20 11/28/21 Keisha Dotson MD 909 [place] [address] Assigned Neuroscience Provider 06/04/20 04/01/23 Galo Burrell MD Assigned Heart and Vascular Provider 10/05/20 04/02/22 Diana Desir, [facility] [address] [place] [address] Pharmacist Pharmacist 04/17/21 Rain Galaviz PA-C [address] [place] [address] [address] [facility] [place] [address] Physician Water Valve Mechanic Dermatology 04/28/21 Summer Lara MD [address] [place] [address] Assigned OBGYN Provider 05/10/2105/23 Summer Lara MD [address] [address] Assigned OBGYN Provider 05/31/21 Summer Lara MD [address] [address] Assigned OBGYN Provider 05/24/2105/30 Tavia Wyatt MD [address] [address] Dermatology 07/14/21 Johnny Murillo MD [address] [place] [address] Assigned Musculoskeletal Provider 08/30/21 03/17/22 Erica Farrell APRN HEAT READER 6405 [facility] [address] [place] [address] Nurse Practitioner Cardiovascular Disease 09/09/21 Teresita Bean, [facility] [address] [place] [phone] Pharmacist Pharmacist 09/24/21 09/29/21 Tavia Wyatt MD [address] [place], [place] [address] Assigned Surgical Provider 11/29/21 05/07/22 Diana Desir, [facility] [address] [place] [address] Assigned MTM Pharmacist 01/02/22 Rich Barrett MD 3033 [place] [address] Physician Ophthalmology 01/21/22 Neil Kent MD 500 [place], [place] 218605 Dermatology 02/24/22 Ronye Story DPM [address] [facility] [address] [place], [place] 266757 Assigned Musculoskeletal Provider 03/20/22 08/13/22 Erica Farrell APRN HEAT READER 1700 [place] [address] Assigned Heart and Vascular Provider 04/03/22 04/16/22 [facility] 30[address] [place] [address] Assigned MTM Pharmacist 04/07/22 [place] David [place] [address] [place] [address] Assigned Surgical Provider 05/08/22 10/08/22 Galo Burrell MD Assigned Heart and Vascular Provider 04/17/22 06/11/22 Livan Sharif MD [address] [place] [address] Cardiovascular Disease 05/14/22 Livan Sharif MD [address] [place] [address] Assigned Heart and Vascular Provider 06/12/22 07/23/22 Catherine Cm MD [address] [place] 1853700 [place] [address] Cardiovascular Disease 07/21/22 Valery Veronica PA-C [address] [place] [address] Physician Water Valve Mechanic Dermatology 07/21/22 Catherine Cm MD [address] [place] 1853700 [place] [address] Assigned Heart and Vascular Provider 07/24/22 11/05/22 Johnny Murillo MD [address] [place] [address] Assigned Musculoskeletal Provider 08/14/22 10/08/22 Brea Quinn APRN HEAT READER [address] [place] [address] 453125 Nurse Practitioner Dermatology 09/21/22 Brea Quinn APRN HEAT READER [address] [place] [address] Assigned Surgical Provider 10/09/22 05/01/24 [place] [address] [place] [address] Assigned Musculoskeletal Provider 10/09/22 05/01/24 Livan Sharif MD [address] [address] [place] [address] Assigned Heart and Vascular Provider 11/06/22 11/12/22 Catherine Cm MD [address] [place] [address] Assigned Heart and Vascular Provider 11/13/22 05/27/23 Sydnie Martinez RN Personal Advocate & Liaison (PAL) Family Medicine 03/28/23 07/31/23 Alfonso Renteria MD 5775 [facility] 200 [place] [address] Assigned Neuroscience Provider 04/02/23 09/29/24 Cheng Todd PA-C [address] [place] [address] Assigned PCP 04/30/23 07/15/23 Radha Lomeli APRN HEAT READER [address] [place] [address] Assigned Heart and Vascular Provider 05/28/23 11/29/24 Jelena David OD [address] [facility] [address] Ophthalmology 06/15/23 Pao Joseph, VJ Personal Advocate & Liaison (PAL) Nurse 08/01/23 11/07/23 Esha Grimm PA-C [address] [place] [phone] Assigned PCP 07/16/23 Valery Veronica PA-C 9 [place] [address] Physician Water Valve Mechanic Dermatology 09/19/23 Rey Tay MD [address] [place] [address] MD Gastroenterology 09/20/23 Rocky Zepeda DO [address] [place] [address] Physician Gastroenterology 09/20/23 Philip Dumont MD [address] [place] [address] Physician Ophthalmology 09/22/23 Meredith Carrera PA-C [address] [place] [address] Assigned Gastroenterology Provider 11/01/23 Neil Kent MD [address] [address] Dermatology 11/02/23 [place] [address] 133287 Neurological Surgery 12/26/23 Audery Waite PA-C [address] [place] [address] Physician Water Valve Mechanic Dermatology 02/28/24 Valery Veornica PA-C 9[address]420 [address] [place] [address] Physician Water Valve Mechanic Dermatology 04/10/24 Herminia Hatch MD [address] [place] [address] Assigned Rheumatology Provider 07/02/24 Jelena David OD [address] [place] [address] [place] [address] Ophthalmology 08/30/24 [place] [address] [place] [address] Assigned Neuroscience Provider 09/30/24 Maru Man PA-C [address] [place] [address] Physician Water Valve Mechanic Dermatology 10/03/24 Maru Man PA-C [address] [place] [address] Physician Water Valve Mechanic Dermatology 10/22/24 Jelena David OD [address] [place] [address] [place] [address] Assigned Surgical Provider 10/31/24 Fabiano Correa NP [address] [place] [address] Assigned Heart and Vascular Provider 11/30/24 documented as of this encounter
--- OUTSIDE RECORDS SUMMARY | 2024-12-31 03:20 | XMS_ITS | Encounter Summary ---
Author Organization [facility] Address [address] [place] [address] Care Team Providers Care Feller Seam Operator Name Role Phone Lita Oseguera Unavailable Unavailable Marija Edgar APARTMENT ASSISTANT MANAGER ENERGY EFFICIENCY SPECIALIST Primary Care Provider + Chanelle Mccann APARTMENT ASSISTANT MANAGER CNM Unavailab le Marija Edgar APRN ENERGY EFFICIENCY SPECIALIST Unavailable [phone] Mynor Broussard MD Unavailable [phone] Keisha Dotson MD Unavailable Galo Burrell MD Unavailable Unavailable Diana Desir [facility] Unavailable Rain Galaviz PA-C Unavailable Summer Lara MD Unavailable [phone] Summer Lara MD Unavailable [phone] Summer Lara MD Unavailable [phone] Tavia Wyatt MD Unavailable Johnny Murillo MD Unavailable Erica Farrell APARTMENT ASSISTANT MANAGER ENERGY EFFICIENCY SPECIALIST Unavailable Teresita Bean [facility] Unavailable Tavia Wyatt MD Unavailable DesirDiana [facility] Unavailable Rich Barrett MD Unavailable Neil Kent MD Unavailable Roney StoryM Unavailable [phone] Erica Farrell APRN ENERGY EFFICIENCY SPECIALIST Unavailable Diana Desir [facility] Unavailable [phone] Jelena David OD Unavailable [phone] Galo Burrell MD Unavailable Unavailable Livan Sharif MD Unavailable Livan Sharif MD Unavailable Catherine Cm MD Unavailable + Valery VeronicaC Unavailable [phone] Catherine Cm MD Unavailable + Johnny Murillo MD Unavailable [phone] Brea Quinn APARTMENT ASSISTANT MANAGER ENERGY EFFICIENCY SPECIALIST Unavailable [phone] Brea Quinn APARTMENT ASSISTANT MANAGER ENERGY EFFICIENCY SPECIALIST Unavailable [phone] Jose Francisco Johnson MD Unavailable Livan Sharif MD Unavailable Catherine Cm MD Unavailable + Sydnie Martinez RN Unavailable Unavailable Alfonso Renteria MD Unavailable Esha GrimmC Primary Care Provider Cheng Todd-C Unavailable [phone] Radha Lomeli APRN ENERGY EFFICIENCY SPECIALIST Unavailable [phone] Jelena David OD Unavailable Pao Joseph RN Unavailable Unavailable Alfa, Esha M PA-C Unavailable [phone] Valery Veronica PA-C Unavailable Rey Tay MD Unavailable Rocky Zepeda DO Unavailable Philip Dumont MD Unavailable [phone] Meredith Carrera PA-C Unavailable [phone] Neil Kent MD Unavailable Juan Pablo Emmanuel MD Unavailable [phone] Audrey Waite PA-C Unavailable Valery Veronica PA-C Unavailable Herminia Hatch MD Unavailable Jelena David OD Unavailable Juan Pablo Emmanuel MD Unavailable Maru Man PA-C Unavailable Maru Man PA-C Unavailable [phone] Jelena David OD Unavailable Fabiano Correa NP Unavailable Encounter Details Date Type Department Care Team (Late st Contact Info) Description 04/28/2021 MyC Medical Advice [address] [address] Lauren Gan, RN Social History [...] Answer Date Recorded PHQ-2 Score 0 04/02/2021 [facility] [place] of Occupat ional Health - Occupational Stress [...] a care home (including now)? No 08/11/2020 [place] Depression Scale Answer Date Recorded [place] Depression Score 5 01/14/2021 Last EPDS Self Harm Result Not on file 01/14 Education Answer Date Recorded What is the highest level of school you have completed or the highest degree you have received? 12th grade 08/07/2020 Comments No Sex and Gender Information Value Date Recorded Sex Assigned at Female 03/02/2021 5:45 PM CDT Legal Sex Female 4:13 AM TAXICAB DISPATCHER Gender Identity Female 03/02/2021 5:45 PM [...] Description 01/02/2025 1:10 PM CDT Ancillary Procedure [address] [phone] Lauren Claudio PA-C [address] [place] [address] 01/17/2025 10:00 AM CDT Appointment [facility] Respiratory [facility]5 [place] [phone] Lauren Claudio PA-C [address] [place], [place] [phone] 04/16/2025 11:00 AM CDT Virtual Visit [facility] G[facility]ology [facility] [address] [place] [phone] Meredith Carrera PA-C [address] [place] [address] documented as of this encounter Visit Diagnoses Not on filedocumented in this encounter Additional Health Concerns Infection Onset Date Last Indicated Resolved Time Rule Out COVID-19 05/11/2021 05/11/2021 05/13/2021 10:18 AM CDT Rule Out COVID-19 07/13/2021 07/13/2021 07/14/2021 3:04 PM TAXICAB DISPATCHER Rule Out COVID-19 07/18/2021 07/18/2021 07/20/2021 1:56 PM TAXICAB DISPATCHER COVID-19 07/18/2021 07/18/2021 08/08/2021 11:3 9 PM TAXICAB DISPATCHER Rule Out COVID-19 12/18/2021 12/18/2021 12/19/2021 11:34 AM CDT Rule Out COVID-19 02/24/2022 02/24/2022 02/25/2022 1:08 PM CDT Rule Out COVID-19 04/26/2022 04/26/2022 04/26/2022 6:47 AM CDT Rule Out COVID-19 05/17/2022 05/17/2022 05/17/2022 10:20 PM TAXICAB DISPATCHER Rule Out COVID-19 06/09/2022 06/09/2022 06/09/2022 9:35 AM TAXICAB DISPATCHER COVID-19 06/09/2022 06/09/2022 06/30/2022 11:4 1 PM TAXICAB DISPATCHER Rule Out COVID-19 11/10/2022 11/10/2022 11/11/2022 12:17 [...] documented as of this encounter Care Teams Feller Seam Operator Relationship Specialty Start Date End Date Marija Edgar APRN CNP PCP - General Nurse Practitioner 04/30/20 04/14/23 Esha Grimm PA-C [address] [place] [address] PCP - General Family Medicine 05/04/23 Lita Oseguera Personal Advocate & Liaison (PAL) 02/28/20 03/27/23 Chanelle Mccann APRN CNM [address] [place], [facility] [address] [place] [address] Assigned OBGYN Provider 05/02/2005/09 Marija Edgar APRN ENERGY EFFICIENCY SPECIALIST Assigned PCP 06/08/20 04/29/23 Mynor Broussard MD 6363 [facility] 500 [place] [address] Assigned Surgical Provider 06/01/20 11/28/21 Keisha Dotson MD 909 [place] [address] Assigned Neuroscience Provider 06/04/20 04/01/23 Galo Burrell MD Assigned Heart and Vascular Provider 10/05/20 04/02/22 Diana Desir, [facility] [address] [place] [address] Pharmacist Pharmacist 04/17/21 Rain Galaviz PA-C [address] [place] [address] 250 [place] [address] Physician Financial Sales Associate Dermatology 04/28/21 Summer Lara MD [address] [place] [address] Assigned OBGYN Provider 05/10/2105/23 Summer Lara MD [address] [place] [address] Assigned OBGYN Provider 05/31/21 Summer Lara MD [address] [place] [address] Assigned OBGYN Provider 05/24/2105/30 Tavia Wyatt MD [address] [place] [address] Dermatology 07/14/21 Johnny Murillo MD [address] [place] [address] Assigned Musculoskeletal Provider 08/30/21 03/17/22 Erica Farrell APRN ENERGY EFFICIENCY SPECIALIST [address] [facility] [address] [place] [address] Nurse Practitioner Cardiovascular Disease 09/09/21 Teresita Bean, [facility] [address] [place] [phone] Pharmacist Pharmacist 09/24/21 09/29/21 Tavia Wyatt MD [address] [place], [place] [address] Assigned Surgical Provider 11/29/21 05/07/22 Diana Desir, [facility] [address] [place] [address] Assigned MTM Pharmacist 01/02/22 Rich Barrett MD 3033 [place] [address] Physician Ophthalmology 01/21/22 Neil Kent MD 500 [place], [place] 9[address]85 Dermatology 02/24/22 Roney Story DPM [address] [facility] [address] [place], [place] [address] Assigned Musculoskeletal Provider 03/20/22 08/13/22 Erica Farrell APRN ENERGY EFFICIENCY SPECIALIST 1700 [place] [address] Assigned Heart and Vascular Provider 04/03/22 04/16/22 [facility] 3033 [place] [address] Assigned MTM Pharmacist 04/07/22 Jelena David OD [address] [facility] [address] Assigned Surgical Provider 05/08/22 10/08/22 Galo Burrell MD Assigned Heart and Vascular Provider 04/17/22 06/11/22 Livan Sharif MD [address] [place] [address] Cardiovascular Disease 05/14/22 Livan Sharif MD [address] [place] [address] Assigned Heart and Vascular Provider 06/12/22 07/23/22 Catherine Cm MD [address] [place] [address]00 [place] [address] Cardiovascular Disease 07/21/22 Valery Veronica, PA-C [address] [place] [address] Physician Financial Sales Associate Dermatology 07/21/22 Catherine Cm MD [address] [address] Assigned Heart and Vascular Provider 07/24/22 11/05/22 Johnny Murillo MD [address] [place] [address] Assigned Musculoskeletal Provider 08/14/22 10/08/22 Brea Quinn APRN ENERGY EFFICIENCY SPECIALIST [address] [place] [address] 250935 Nurse Practitioner Dermatology 09/21/22 Brea Quinn APRN ENERGY EFFICIENCY SPECIALIST [address] [place] [address] Assigned Surgical Provider 10/09/22 05/01/24 [place] [address] [place] [address] Assigned Musculoskeletal Provider 10/09/22 05/01/24 Livan Sharif MD [address] [place] [address] Assigned Heart and Vascular Provider 11/06/22 11/12/22 Catherine Cm MD [address] [place] [address] Assigned Heart and Vascular Provider 11/13/22 05/27/23 Sydnie Martinez RN Personal Advocate & Liaison (PAL) Family Medicine 03/28/23 07/31/23 Alfonso Renteria MD 5775 [facility] 200 [place] [address] Assigned Neuroscience Provider 04/02/23 09/29/24 Cheng Todd PA-C [address] [place] [address] Assigned PCP 04/30/23 07/15/23 Radha Lomeli APRN ENERGY EFFICIENCY SPECIALIST [address] [place] [address] Assigned Heart and Vascular Provider 05/28/23 11/29/24 Jelena David OD [address] [facility] [address] Ophthalmology 06/15/23 Pao Joseph, VJ Personal Advocate & Liaison (PAL) Nurse 08/01/23 11/07/23 Esha Grimm PA-C [address] [place] [address] Assigned PCP 07/16/23 Valery Veronica PA-C 9 [place] [address] Physician Financial Sales Associate Dermatology 09/19/23 Rey Tay MD [address] [place] [address] MD Gastroenterology 09/20/23 Rocky Zepeda DO [address] [place] [address] Physician Gastroenterology 09/20/23 Philip Dumont MD [address] [place] [address] Physician Ophthalmology 09/22/23 Meredith Carrera PA-C [address] [place] [address] Assigned Gastroenterology Provider 11/01/23 Neil Kent MD [address] [address] Dermatology 11/02/23 [place] [address] 94[address] Neurological Surgery 12/26/23 Audrey Waite PA-C [address] [place] [address] Physician Financial Sales Associate Dermatology 02/28/24 Valery Veronica PA-C 387856 [address] [place] [address] Physician Financial Sales Associate Dermatology 04/10/24 Herminia Hatch MD [address] [place] [address] Assigned Rheumatology Provider 07/02/24 Jelena David OD [address] [place] [address] [place] [address] Ophthalmology 08/30/24 [place] [address] [place] [address] Assigned Neuroscience Provider 09/30/24 Maru Man PA-C [address] [place] [address] Physician Financial Sales Associate Dermatology 10/03/24 Maru Man PA-C [address] [place] [address] Physician Financial Sales Associate Dermatology 10/22/24 Jelena David OD [address] [place] [address] [place] [address] Assigned Surgical Provider 10/31/24 Fabiano Correa NP [address] [place] [address] Assigned Heart and Vascular Provider 11/30/24 documented as of this encounter
--- OUTSIDE RECORDS SUMMARY | 2024-12-31 03:20 | XMS_ITS | Encounter Summary ---
Author Organization [facility] Address [address] [place] [address] Care Team Providers Care Microfilm Operator Name Role Phone Lita Oseguera Unavailable Unavailable Marija Edgar PORTER SAMPLE CASE FOUR H AGENT Primary Care Provider + Chanelle Mccann PORTER SAMPLE CASE CNM Unavailab le Marija Edgar APRN FOUR H AGENT Unavailable Mynor Broussard MD Unavailable [phone] Keisha Dotson MD Unavailable Galo Burrell MD Unavailable Unavailable Diana Desir [facility] Unavailable Rain Galaviz PA-C Unavailable Summer Lara MD Unavailable [phone] Summer Lara MD Unavailable [phone] Summer Lara MD Unavailable [phone] Tavia Wyatt MD Unavailable Johnny Murillo MD Unavailable Erica Farrell PORTER SAMPLE CASE FOUR H AGENT Unavailable Teresita Bean [facility] Unavailable [phone] Tavia Wyatt MD Unavailable DesirDiana [facility] Unavailable Rich Barrett MD Unavailable Neil Kent MD Unavailable Roney StoryM Unavailable [phone] Erica Farrell APRN FOUR H AGENT Unavailable Diana Desir [facility] Unavailable [phone] Jelena David OD Unavailable Galo Burrell MD Unavailable Unavailable Livan Sharif MD Unavailable Livan Sharif MD Unavailable Catherine Cm MD Unavailable + Valery VeronicaC Unavailable [phone] Catherine Cm MD Unavailable + Johnny Murillo MD Unavailable [phone] Brea Quinn PORTER SAMPLE CASE FOUR H AGENT Unavailable [phone] Brea Quinn PORTER SAMPLE CASE FOUR H AGENT Unavailable [phone] Jose Francisco Johnson MD Unavailable Livan Sharif MD Unavailable Catherine Cm MD Unavailable + Sydnie Martinez RN Unavailable Unavailable Alfonso Renteria MD Unavailable Esha GrimmC Primary Care Provider Cheng Todd-C Unavailable [phone] Radha Lomeli APRN FOUR H AGENT Unavailable [phone] Jelena aDvid OD Unavailable Pao Joseph RN Unavailable Unavailable Alfa, Esha M PA-C Unavailable [phone] Valery Veronica PA-C Unavailable Rey Tay [...] PA-C Unavailable Jelena David OD Unavailable [phone] Fabiano Correa NP Unavailable Encounter Details Date Type Department Care Team (Late st Contact Info) Description 04/17/2021 MyC Medical Advice [address] [address] Diana Desir, [facility] [address] [place], [place] [address] Social History Tobacco Use Types Packs/Day Years [...] week 08/07/2020 How often do you attend [facility]? More than 4 times per year [...] in a fdc (including now)? No 08/11/2020 [place] Depression Scale Answer Date Recorded [place] Depression Score 5 01/14/2021 Last EPDS Self Harm Result Not on file 01/14 Education Answer Date Recorded What is the highest level of school you have completed or the highest degree you have received? 12th grade 08/07/2020 Comments No Sex and Gender Information Value Date Recorded Sex Assigned at Female 03/02/2021 5:45 PM CDT Legal Sex Female 4:13 AM STAGE BUILDER Gender Identity Female 03/02/2021 5:45 PM [...] Description 01/02/2025 1:10 PM CDT Ancillary Procedure [address] [address] Lauren Claudio PA-C [address] [place] [address] 01/17/2025 10:00 AM CDT Appointment [facility] Respiratory [facility]5 [place] [phone] Lauren Claudio PA-C [address] [place] [address] 04/16/2025 11:00 AM CDT Virtual Visit [facility] Gastroenterology Clinic [address]th [place] [phone] Meredith Carrera PA-C [address] [place] [address] documented as of this encounter Visit Diagnoses Not on filedocumented in this encounter Additional Health Concerns Infection Onset Date Last Indicated Resolved Time Rule Out COVID-19 05/11/2021 05/11/2021 05/13/2021 10:18 AM CDT Rule Out COVID-19 07/13/2021 07/13/2021 07/14/2021 3:04 PM STAGE BUILDER Rule Out COVID-19 07/18/2021 07/18/2021 07/20/2021 1:56 PM STAGE BUILDER COVID-19 07/18/2021 07/18/2021 08/08/2021 11:3 9 PM STAGE BUILDER Rule Out COVID-19 12/18/2021 12/18/2021 12/19/2021 11:34 AM CDT Rule Out COVID-19 02/24/2022 02/24/2022 02/25/2022 1:08 PM CDT Rule Out COVID-19 04/26/2022 04/26/2022 04/26/2022 6:47 AM CDT Rule Out COVID-19 05/17/2022 05/17/2022 05/17/2022 10:20 PM STAGE BUILDER Rule Out COVID-19 06/09/2022 06/09/2022 06/09/2022 9:35 AM STAGE BUILDER COVID-19 06/09/2022 06/09/2022 06/30/2022 11:4 1 PM STAGE BUILDER Rule Out COVID-19 11/10/2022 11/10/2022 11/11/2022 [...] documented as of this encounter Care Teams Microfilm Operator Relationship Specialty Start Date End Date Marija Edgar APRN CNP PCP - General Nurse Practitioner 04/30/20 10 Esha Grimm PA-C [address] [place] [address] PCP - General Family Medicine 05/04/23 Lita Oseguera Personal Advocate & Liaison (PAL) 02/28/20 03/27/23 Chanelle Mccann APRN [place]NAdam [address] [place], [facility] 200 [place] [address] Assigned OBGYN Provider 05/02/2005/09 Marija Edgar APRN FOUR H AGENT Assigned PCP 06/08/20 04/29/23 Mynor Broussard MD 6363 [facility] 500 [place], [place] [address] Assigned Surgical Provider 06/01/20 11/28/21 Keisha Dotson MD 909 [place], [place] 883185 Assigned Neuroscience Provider 06/04/20 04/01/23 Galo Burrell MD Assigned Heart and Vascular Provider 10/05/20 04/02/22 Diana Desir, [facility] [address] [place] [address] Pharmacist Pharmacist 04/17/21 Rain Galaviz PA-C [address] [facility] [address] [address] Physician Finish Rolls Operator Dermatology 04/28/21 Summer Lara MD [address] [facility] [place] [address] Assigned OBGYN Provider 05/10/2105/23 Summer Lara MD [address] [place] [address] [place] [address] Assigned OBGYN Provider 05/31/21 2 Summer Lara MD [address] [place] [address] [place] [address] Assigned OBGYN Provider 05/24/2105/30 Tavia Wyatt MD [address] [place] [address] Dermatology 07/14/21 Johnny Murillo MD [facility] [address] [place] [address] Assigned Musculoskeletal Provider 08/30/21 03/17/22 Erica Farrell APRN [facility] 6[address] [facility] [address] [place] [address] Nurse Practitioner Cardiovascular Disease 09/09/21 Teresita Bean [facility] [address] [place] [address] Pharmacist Pharmacist 09/24/21 09/29/21 Tavia Wyatt MD [address] [place] [address] Assigned Surgical Provider 11/29/21 05/07/22 Diana Desir [facility] 3033 [place] [address] Assigned MTM Pharmacist 01/02/22 Rich Barrett MD 3033 [place] [address] Physician Ophthalmology 01/21/22 Neil Kent MD 500 [place] [address] Dermatology 02/24/22 Roney Story DPM [address] [facility] [address] [place] [address] Assigned Musculoskeletal Provider 03/20/22 08/13/22 Erica Farrell APRN FOUR H AGENT 1700 [place] [address] Assigned Heart and Vascular Provider 04/03/22 04/16/22 [facility] 3033 [place] [address] Assigned MTM Pharmacist 04/07/22 Jelena David OD [address] [place] [address] Assigned Surgical Provider 05/08/22 10/08/22 Galo Burrell MD Assigned Heart and Vascular Provider 04/17/22 06/11/22 Livan Sharif MD [address] [facility] [address] [place] 179185 Cardiovascular Disease 05/14/22 Livan Sharif MD [address] 8610600 [place] 6[address]65 Assigned Heart and Vascular Provider 06/12/22 07/23/22 Catherine Cm MD [address] [address] [place] 140835 Cardiovascular Disease 07/21/22 Valery Veronica, PA-C [address] [place] [address] 073715 Physician Finish Rolls Operator Dermatology 07/21/22 Catherine mC MD [address] [address] [address] [place], [place] [address] Assigned Heart and Vascular Provider 07/24/22 11/05/22 Johnny Murillo MD [address] [place] [address] 722914 Assigned Musculoskeletal Provider 08/14/22 10/08/22 Brea Quinn APRN FOUR H AGENT [address] [place] [address] 551315 Nurse Practitioner Dermatology 09/21/22 Brea Quinn APRN FOUR H AGENT [address] [place] [address] [place] 261022 Assigned Surgical Provider 10/09/22 05/01/24 [place] [address] [place] [address] 177657 Assigned Musculoskeletal Provider 10/09/22 05/01/24 Livan Sharif MD [address] [address] [place] 488[address]85 Assigned Heart and Vascular Provider 11/06/22 11/12/22 Catherine Cm MD [address] [place] [address] Assigned Heart and Vascular Provider 11/13/22 05/27/23 Sydnie Martinez, VJ Personal Advocate & Liaison (PAL) Family Medicine 03/28/23 07/31/23 Alfonso Renteria MD 5775 [facility] 200 [place] [address] Assigned Neuroscience Provider 04/02/23 09/29/24 Cheng Todd PA-C [address] [place] [address] [id number] Assigned PCP 04/30/23 07/15/23 Radha Lomeli, ARLENE FOUR H AGENT [address] [place] 680695 Assigned Heart and Vascular Provider 05/28/23 11/29/24 Jelena David OD [address] [place] [address] Ophthalmology 06/15/23 Pao Joseph RN Personal Advocate & Liaison (PAL) Nurse 08/01/23 11/07/23 Esha Grimm PAUcheC [address] [place] [address] Assigned PCP 07/16/23 Valery Veronica PA-C [address] [place] [address] Physician Finish Rolls Operator Dermatology 09/19/23 Rey Tay MD [address] [place] [address] MD Gastroenterology 09/20/23 Rocky Zepeda DO [address] [place] [address] 290665 Physician Gastroenterology 09/20/23 Philip Dumont MD [address] [place] [address] Physician Ophthalmology 09/22/23 Meredith Carrera PA-C [address] [place] [address] 295025 Assigned Gastroenterology Provider 11/01/23 Neil Kent MD [address] 547690 Dermatology 11/02/23 [place] [address] [facility] [place] [address] Neurological Surgery 12/26/23 Audrey Waite PA-C [address] [place] [address] Physician Finish Rolls Operator Dermatology 02/28/24 Valery Veronica PA-C [address] [place] [address] Physician Finish Rolls Operator Dermatology 04/10/24 Herminia Hatch MD [address] [place] [address] Assigned Rheumatology Provider 07/02/24 Jelena David, OD [facility] [place] [address] Ophthalmology 08/30/24 [place] [address] [place] [address] Assigned Neuroscience Provider 09/30/24 Maru Man PA-C [address] [place] [address] 429980 Physician Finish Rolls Operator Dermatology 10/03/24 Maru Man PA-C [address] [place] [address] Physician Finish Rolls Operator Dermatology 10/22/24 Jelena David OD [address] [place] [address] Assigned Surgical Provider 10/31/24 Fabiano [place], ASSEMBLER RUBBER FOOTWEAR [address] [place] [address] Assigned Heart and Vascular Provider 11/30/24 documented as of this encounter
--- OUTSIDE RECORDS SUMMARY | 2024-12-31 03:20 | XMS_ITS | Encounter Summary ---
Author Organization [place] Address [address] [place] [address] Care Team Providers Care City Assessor Name Role Phone Lita Oseguera Unavailable Unavailable Marija Edgar EMAIL ENGINEER FIELD OPERATIONS SUPERVISOR Primary Care Provider + Chanelle Mccann EMAIL ENGINEER CNM Unavailab le Marija Edgar APRN FIELD OPERATIONS SUPERVISOR Unavailable [phone] Mynor Broussard MD Unavailable [phone] Keisha Dotson MD Unavailable Galo Burrell MD Unavailable Unavailable Diana Desir [facility] Unavailable Rain Galaviz PA-C Unavailable Summer Lara MD Unavailable [phone] Summer Lara MD Unavailable [phone] Summer Lara MD Unavailable [phone] Tavia Wyatt MD Unavailable Johnny Murillo MD Unavailable Erica Farrell EMAIL ENGINEER FIELD OPERATIONS SUPERVISOR Unavailable Teresita Bean [facility] Unavailable Tavia Wyatt MD Unavailable DesirDiana [facility] Unavailable Rich Barrett MD Unavailable Neil [place] MD Unavailable Roney StoryM Unavailable [phone] Erica Farrell APRN FIELD OPERATIONS SUPERVISOR Unavailable Diana Desir [facility] Unavailable [phone] Jelena David OD Unavailable [phone] Galo Burrell MD Unavailable Unavailable Livan Sharif MD Unavailable Livan Sharif MD Unavailable Catherine Cm MD Unavailable + Valery VeronicaC Unavailable [phone] Catherine Cm MD Unavailable + Johnny Murillo MD Unavailable [phone] Brea Quinn EMAIL ENGINEER FIELD OPERATIONS SUPERVISOR Unavailable [phone] Brea Quinn EMAIL ENGINEER FIELD OPERATIONS SUPERVISOR Unavailable [phone] Jose Francisco Johnson MD Unavailable Livan Sharif MD Unavailable Catherine Cm MD Unavailable + Sydnie Martinez RN Unavailable Unavailable Alfonso Renteria MD Unavailable Esha GrimmC Primary Care Provider Cheng Todd-C Unavailable [phone] Radha Lomeli APRN FIELD OPERATIONS SUPERVISOR Unavailable [phone] Jelena David OD Unavailable Pao Joseph RN Unavailable Unavailable Alfa, Esha M PA-C Unavailable [phone] Valery Veronica PA-C Unavailable Rey Tay [...] Contact Info) Description 04/17/2021 My[facility] Medical Advice [address] [address] Marija Edgar APRN FIELD OPERATIONS SUPERVISOR [address] [facility] [place] [address] Social History Tobacco Use [...] week 08/07/2020 How often do you attend [facility] or worship services? More than 4 [...] Date Recorded PHQ-2 Score 0 04/02/2021 [facility] [place] of Occupat ional Health - Occupational [...] in a fci (including now)? No 08/11/2020 [place] Depression Scale Answer Date Recorded [place] Depression Score 5 01/14/2021 Last EPDS Self Harm Result Not on file 01/14 Education Answer Date Recorded What is the highest level of school you have completed or the highest degree you have received? 12th grade 08/07/2020 Comments No Sex and Gender Information Value Date Recorded Sex Assigned at Female 03/02/2021 5:45 PM CDT Legal Sex Female 4:13 AM MANAGER FIELD Gender Identity Female 03/02/2021 5:45 PM CDT [...] CDT Ancillary Procedure [facility] [id number] [place] [phone] Lauren Claudio PA-C [address] [place] [address] 01/17/2025 10:00 AM CDT Appointment [facility]5 [place] [phone] Lauren Claudio PA-C [address] [place] [address] 04/16/2025 11:00 AM CDT Virtual Visit [facility] [address] [phone] Meredith Carrera PA-C [address] [place] [address] documented as of this encounter Visit Diagnoses Not on filedocumented in this encounter Additional Health Concerns Infection Onset Date Last Indicated Resolved Time Rule Out COVID-19 05/11/2021 05/11/2021 05/13/2021 10:18 AM CDT Rule Out COVID-19 07/13/2021 07/13/2021 07/14/2021 3:04 PM MANAGER FIELD Rule Out COVID-19 07/18/2021 07/18/2021 07/20/2021 1:56 PM MANAGER FIELD COVID-19 07/18/2021 07/18/2021 08/08/2021 11:3 9 PM MANAGER FIELD Rule Out COVID-19 12/18/2021 12/18/2021 12/19/2021 11:34 AM CDT Rule Out COVID-19 02/24/2022 02/24/2022 02/25/2022 1:08 PM CDT Rule Out COVID-19 04/26/2022 04/26/2022 04/26/2022 6:47 AM CDT Rule Out COVID-19 05/17/2022 05/17/2022 05/17/2022 10:20 PM MANAGER FIELD Rule Out COVID-19 06/09/2022 06/09/2022 06/09/2022 9:35 AM MANAGER FIELD COVID-19 06/09/2022 06/09/2022 06/30/2022 11:4 1 PM MANAGER FIELD Rule Out COVID-19 11/10/2022 11/10/2022 11/11/2022 12:17 [...] as of this encounter Care Teams City Assessor Relationship Specialty Start Date End Date Marija Edgar APRN CNP PCP - General Nurse Practitioner 04/30/20 04/14/23 Esha Grimm PA-C [address] [place] [address] PCP - General Family Medicine 05/04/23 Lita Oseguera Personal Advocate & Liaison (PAL) 02/28/20 03/27/23 Chanelle Mccann APRN CNM [address] [place], [facility] 200 [place] [address] Assigned OBGYN Provider 05/02/2005/09 Marija Edgar APRN FIELD OPERATIONS SUPERVISOR Assigned PCP 06/08/20 04/29/23 Mynor Broussard MD [address] [facility] 500 [place], [place] 695945 Assigned Surgical Provider 06/01/20 11/28/21 Keisha Dotson MD 909 [place], [place] 493215 Assigned Neuroscience Provider 06/04/20 04/01/23 Galo Burrell MD Assigned Heart and Vascular Provider 10/05/20 04/02/22 Diana Desir, [facility] [address] [place] [address] Pharmacist Pharmacist 04/17/21 Rain Galaviz PA-C [address] [place] [address] [address] [place] [address] Physician Director Of Front Office Dermatology 04/28/21 Summer Lara MD 606 [address], [place] [address] Assigned OBGYN Provider 05/10/2105/23 Summer Lara MD [address] [place] [address] [place] [address] Assigned OBGYN Provider 05/31/21 2 Summer Lara MD [address] [place] [address] Assigned OBGYN Provider 05/24/2105/30 Tavia Wyatt MD [address] [place] [address] Dermatology 07/14/21 Johnny Murillo MD [facility] [facility] [address] [place] [address] Assigned Musculoskeletal Provider 08/30/21 03/17/22 Erica Farrell APRN [facility] [address] [facility] [address] [place] [address] Nurse Practitioner Cardiovascular Disease 09/09/21 Teresita Bean [facility] [address] [place] [address] Pharmacist Pharmacist 09/24/21 09/29/21 Tavia Wyatt MD [address] [place] [address] Assigned Surgical Provider 11/29/21 05/07/22 [facility] 3033 [place] [address] Assigned MTM Pharmacist 01/02/22 Rich Barrett MD 3033 [place] [address] Physician Ophthalmology 01/21/22 Neil [place] MD 500 [place] [address] Dermatology 02/24/22 Roney Story DPM [address] [facility] [address] [place] [address] Assigned Musculoskeletal Provider 03/20/22 08/13/22 Erica Farrell APRN FIELD OPERATIONS SUPERVISOR 1700 [place] [address] Assigned Heart and Vascular Provider 04/03/22 04/16/22 Diana Desir, [facility] [address] [place] [address] Assigned MTM Pharmacist 04/07/22 Jelena David OD 3[address] [facility] [place] [address] Assigned Surgical Provider 05/08/22 10/08/22 Galo Burrell MD Assigned Heart and Vascular Provider 04/17/22 06/11/22 Livan Sharif MD [address] [facility] [address] [place] 384995 Cardiovascular Disease 05/14/22 Livan Sharif MD [address] 1709300 [place] [address] Assigned Heart and Vascular Provider 06/12/22 07/23/22 Catherine Cm MD [address] [address] [place] 762145 Cardiovascular Disease 07/21/22 Valery Veronica, PA-C [address] [place] [address] 561765 Physician Director Of Front Office Dermatology 07/21/22 Catherine Cm MD [address] [address] [place] 041045 Assigned Heart and Vascular Provider 07/24/22 11/05/22 Johnny Murillo MD [address] [place] [address] 941854 Assigned Musculoskeletal Provider 08/14/22 10/08/22 Brea Quinn APRN FIELD OPERATIONS SUPERVISOR [address] [place] [address] 503315 Nurse Practitioner Dermatology 09/21/22 Brea Quinn APRN FIELD OPERATIONS SUPERVISOR [address] [place] [address] [place] [id number] Assigned Surgical Provider 10/09/22 05/01/24 [place] [address] [place] [address] 399457 Assigned Musculoskeletal Provider 10/09/22 05/01/24 Livan Sharif MD [address] [facility] [address] [place] [address] Assigned Heart and Vascular Provider 11/06/22 11/12/22 Catherine Cm MD [address] [place] [address] [place] [address] Assigned Heart and Vascular Provider 11/13/22 05/27/23 Sydnie Martinez RN Personal Advocate & Liaison (PAL) Family Medicine 03/28/23 07/31/23 Alfonso Renteria MD 5775 [facility] 200 [place] [address] Assigned Neuroscience Provider 04/02/23 09/29/24 Cheng Todd PA-C [address] [place] [address] [phone] Assigned PCP 04/30/23 07/15/23 Radha Lomeli APRN FIELD OPERATIONS SUPERVISOR [address] [place] [address] Assigned Heart and Vascular Provider 05/28/23 11/29/24 Jelena David OD [address]305 [facility] [place] [address] Ophthalmology 06/15/23 Pao Joseph RN Personal Advocate & Liaison (PAL) Nurse 08/01/23 11/07/23 Esha Grimm PA-C [address] [place] [phone] Assigned PCP 07/16/23 Valery Veronica PA-C [address] [place] [address] Physician Director Of Front Office Dermatology 09/19/23 Rey Tay MD [address] [place] [address] MD Gastroenterology 09/20/23 Rocky Zepeda DO [address] [place] [address] Physician Gastroenterology 09/20/23 Philip Dumont MD [address] [place] [address] Physician Ophthalmology 09/22/23 Meredith Carrera PA-C [address] [place] [address] 106[address] Assigned Gastroenterology Provider 11/01/23 Neil [place] MD [address] [place] [address] 211920 Dermatology 11/02/23 [place] [address] [place] 010727 Neurological Surgery 12/26/23 Audrey Waite PA-C [address] [place] [address] 887305 Physician Director Of Front Office Dermatology 02/28/24 Valery Veronica PA-C [address] [place] [address] Physician Director Of Front Office Dermatology 04/10/24 Herminia Hatch MD [employer]5 [place] [address] Assigned Rheumatology Provider 07/02/24 Jelena David, OD [address] [place] [address] [place] [address] Ophthalmology 08/30/24 [place] [address] [place] [address] Assigned Neuroscience Provider 09/30/24 Maru Man PA-C [address] [place] [address] Physician Director Of Front Office Dermatology 10/03/24 Maru Man PA-C [address] [place] [address] Physician Director Of Front Office Dermatology 10/22/24 Jelena David, SONJA [facility] [facility] [place] [address] Assigned Surgical Provider 10/31/24 Fabiano Correa, COKE INSPECTOR [address] [place] [address] Assigned Heart and Vascular Provider 11/30/24 documented as of this encounter
--- OUTSIDE RECORDS SUMMARY | 2024-12-31 03:21 | XMS_ITS | Encounter Summary ---
Author Organization [place] Address [address] [place] [address] Care Team Providers Care Drywall Stripper Name Role Phone Diana Desir [facility] Unavailable Rain Galaviz PA-C Unavailable Tavia Wyatt MD Unavailable [phone] Erica Farrell APRN RADIOLOGIC ELECTRONIC SPECIALIST Unavailable Rich Barrett MD Unavailable [phone] Neil [place] MD Unavailable Diana Desir [facility] Unavailable Livan Sharif MD Unavailable Catherine Cm MD Unavailable + Valery Veronica PA-C Unavailable Brea Quinn STRAIGHTENING ROLL OPERATOR RADIOLOGIC ELECTRONIC SPECIALIST Unavailable Brea Quinn STRAIGHTENING ROLL OPERATOR RADIOLOGIC ELECTRONIC SPECIALIST Unavailable [phone] Jose Francisco Johnson MD Unavailable Alfonso Renteria MD Unavailable [phone] Esha Grimm PA-C Primary Care Provider Radha Lomeli APRN RADIOLOGIC ELECTRONIC SPECIALIST Unavailable Jelena David OD Unavailable [phone] Pao Joseph RN Unavailable Unavailable AlfaJesusEsha M PA-C Unavailable [phone] Valery Veronica PA-C Unavailable Rey Tay [...] [facility] [place] [facility] Medical Advice [address] [address] Diana Desir, [facility] 3033 [place], [place] 437496 Social History Tobacco Use Types Packs/Day Years [...] you attend [facility] or [employer] services? 1 to 4 [...] Score 0 06/20/2023 [facility] [...] exercise at this level? 30 min 03/10/2023 [place] Depression Scale Answer Date Recorded [place] Depression Score 5 01/14/2021 Last EPDS Self [...] PM CDT Legal Sex Female 4:13 AM CUSTOMS COLLECTOR Gender Identity Female 03/02/2021 5:45 PM CDT Sexual Orientation Straight 02/28/2020 12 :51 AM CDT documented as of this encounter Plan of Treatment Upcoming Encounters Date Type Department Care Team (Latest Contact Info) Description 01/02/2025 1:10 PM CDT Ancillary Procedure [facility] [address] [place] [phone] Lauren Claudio, R[place]ERT[place] [address] [place] [address] 01/17/2025 10:00 AM CDT Appointment [facility] Respiratory [address] [place] [phone] Lauren Claudio PA-C [address] [place] [address] 04/16/2025 11:00 AM CDT Virtual Visit [facility] [address] 4th [place] [phone] Meredith Carrera PA-C 909 [place] [address] documented as of this encounter Visit Diagnoses [...] Total Score: 4 06/20/20 23 8:40 AM CUSTOMS COLLECTOR documented as of this encounter Care Teams Drywall Stripper Relationship Specialty Start Date End Date Esha Grimm PA-C [address] [place] [phone] PCP - General Family Medicine 05/04/23 Diana Desir, [facility] [address] [place] [address] Pharmacist Pharmacist 04/17/21 Rain Galaviz PA-C [address] [place] [address] [address] [place] [address] Physician Dairy Technologist Dermatology 04/28/21 Tavia Wyatt MD [address] [place] [address] [place] [address] Dermatology 07/14/21 Erica Farrell APRN RADIOLOGIC ELECTRONIC SPECIALIST [address] [place] [address] Nurse Practitioner Cardiovascular Disease 09/09/21 Rich Barrett MD [address] [place] [address] Physician Ophthalmology 01/21/22 Neil [place] MD 500 [place], [place] 506975 Dermatology 02/24/22 Diana Desir, [facility] 3033 [place] [address] Assigned MTM Pharmacist 04/07/22 Livan Sharif MD [address] [place] [address] [place] 428805 Cardiovascular Disease 05/14/22 Catherine Cm MD [address] [phone] [place] [address] Cardiovascular Disease 07/21/22 Valery Veronica, PA-C 909 [place], [place] 675645 Physician Dairy Technologist Dermatology 07/21/22 Brea Quinn APRN RADIOLOGIC ELECTRONIC SPECIALIST 500 [place], [place] 837335 Nurse Practitioner Dermatology 09/21/22 Brea Quinn APRN RADIOLOGIC ELECTRONIC SPECIALIST 6401 [facility] [place] 824642 Assigned Surgical Provider 10/09/22 05/01/24 [place] [address] [address] [facility] 300 [place], [place] 831717 Assigned Musculoskeletal Provider 10/09/22 05/01/24 Alfonso Renteria MD 5775 [facility] 200 [place], [place] 945086 Assigned Neuroscience Provider 04/02/23 09/29/24 Radha Lomeli APRN RADIOLOGIC ELECTRONIC SPECIALIST [address] [id number] [place] 788935 Assigned Heart and Vascular Provider 05/28/23 11/29/24 Jelena David OD 3305 [facility] [place] [address] MD Ophthalmology 06/15/23 Pao Joseph, RN Personal Advocate & Liaison (PAL) Nurse 08/01/23 11/07/23 Esha Grimm PA-C [address] [place] [address]83 Assigned PCP 07/16/23 Valery Veronica PA-C [address] [place] [address] Physician Dairy Technologist Dermatology 09/19/23 Rey Tay MD [address] [place] [address] 213555 MD Gastroenterology 09/20/23 Rocky Zepeda DO [address] [place] [address] 052805 Physician Gastroenterology 09/20/23 Philip Dumont MD [address] [place] [address] 952795 Physician Ophthalmology 09/22/23 Meredith Carrera PA-C [address] [place] [address] 530115 Assigned Gastroenterology Provider 11/01/23 Neil [place] MD [address] [place] [address] 848610 Dermatology 11/02/23 [place] [address] [place] [address] Neurological Surgery 12/26/23 Audrey Waite PA-C 500 [place] [address] Physician Dairy Technologist Dermatology 02/28/24 Valery Veronica PA-C 879781 [place] [address] Physician Dairy Technologist Dermatology 04/10/24 Herminia Hatch MD [address] [place] [address] [phone] Assigned Rheumatology Provider 07/02/24 Jelena David, SONJA [address] [place] [address] [place] [address] Ophthalmology 08/30/24 [place] [address] [place] [address] Assigned Neuroscience Provider 09/30/24 Maru Man PA-C [address] [place] [address] Physician Dairy Technologist Dermatology 10/03/24 Maru Man PA-C [address] [place] [address] Physician Dairy Technologist Dermatology 10/22/24 Jelena David, SONJA [address] [place] [address] [place] [address] Assigned Surgical Provider 10/31/24 Fabiano [place], VP INTEGRATION [address] [place] [address] Assigned Heart and Vascular Provider 11/30/24 documented as of this encounter
--- OUTSIDE RECORDS SUMMARY | 2024-12-31 03:21 | XMS_ITS | Encounter Summary ---
Author Organization [place] Address [address] [place] [address] Care Team Providers Care Surgical Scrub Tech Name Role Phone Lita Oseguera Unavailable Unavailable Marija Edgar APRN SYSTEM OPERATION SUPERINTENDENT Primary Care Provider + Marija Edgar APRN SYSTEM OPERATION SUPERINTENDENT Unavailable [phone] Keisha Dotson MD Unavailable Diana Desir [facility] Unavailable Rain Galaviz PA-C Unavailable [phone] Tavia Wyatt MD Unavailable Erica Farrell APRN SYSTEM OPERATION SUPERINTENDENT Unavailable Rich Barrett MD Unavailable [phone] Neil Kent MD Unavailable Roney Story DPM Unavailable [phone] Diana Desir [facility] Unavailable Jelena David OD Unavailable Galo Burrell MD Unavailable Unavailable Livan Sharif MD Unavailable Livan Sharif MD Unavailable Catherine Cm MD Unavailable + Valery Veronica PA-C Unavailable Catherine Cm MD Unavailable + Johnny Murillo MD Unavailable [phone] Brea Quinn COSMETIC CHEMIST SYSTEM OPERATION SUPERINTENDENT Unavailable [phone] Brea Quinn COSMETIC CHEMIST SYSTEM OPERATION SUPERINTENDENT Unavailable [phone] Jose Francisco Johnson MD Unavailable Livan Sharif MD Unavailable Catherine Cm MD Unavailable + Sydnie Martinez RN Unavailable Unavailable Alfonso Renteria MD Unavailable Esha Grimm PA-C Primary Care Provider Cheng Todd PA-C Unavailable Radha Lomeli COSMETIC CHEMIST SYSTEM OPERATION SUPERINTENDENT Unavailable Jelena David Radha OD Unavailable Pao Joseph RN Unavailable Unavailable Esha Grimm PA-C Unavailable [phone] JeremíasValery damon PA-C Unavailable Rey Tay MD Unavailable Rocky Zepeda DO Unavailable Philip Dumont MD Unavailable [phone] Meredith Carrera PA-C Unavailable [phone] Neil Kent MD Unavailable Juan Pablo Emmanuel MD Unavailable Audrey Waite PA-C Unavailable Valery Veronica PA-C Unavailable Herminia Hatch MD Unavailable Tommy Davidmao Templetone OD Unavailable Juan Pablo Emmanuel MD Unavailable [phone] Maru Man PA-C Unavailable [phone] Maru Man PA-C Unavailable [phone] Jelena David OD Unavailable [phone] Fabiano Correa NP Unavailable [phone] Encounter Details Date Type Department Care Team (Late st Contact Info) Description 05/11/2022 [facility] [place] [place] Medical Advice [address] [address] Diana Desir, [facility] [address] [place], [place] [phone] Social History Tobacco Use Types Packs/Day Years [...] How often do you attend spiritism or gnosticism serv ices? Never 09/22/2021 Do [...] 05/13/2022 [facility] [...] health care facility (including now)? No 09/22/2021 [place] Depression Scale Answer Date Recorded [place] Depression Score 5 01/14/2021 Last EPDS Self Harm Result Not on file 01/14 Education Answer Date Recorded What is the highest level of school you have completed or the highest degree you have received? 12th grade 08/07/2020 Comments No Sex and Gender Information Value Date Recorded Sex Assigned at Female 03/02/2021 5:45 PM CDT Legal Sex Female 4:13 AM MEDICAL EDUCATOR Gender Identity Female 03/02/2021 5:45 PM CDT [...] Description 01/02/2025 1:10 PM CDT Ancillary Procedure [facility] [address] [place] [phone] Lauren Claudio PA-C [address] [place], [place] [phone] 01/17/2025 10:00 AM CDT Appointment [facility] [address] [place] [phone] Lauren Claudio PA-C [address] [place] [address] 04/16/2025 11:00 AM CDT Virtual Visit [facility] [address] 4th [place] [phone] Meredith Carrera PA-C [address] [place] [address] documented as of this encounter Visit Diagnoses Not on filedocumented in this encounter Additional Health Concerns Infection Onset Date Last Indicated Resolved Time Rule Out COVID-19 05/17/2022 05/17/2022 05/17/2022 10:20 PM MEDICAL EDUCATOR Rule Out COVID-19 06/09/2022 06/09/2022 06/09/2022 9:35 AM MEDICAL EDUCATOR COVID-19 06/09/2022 06/09/2022 06/30/2022 11:4 1 PM MEDICAL EDUCATOR Rule Out COVID-19 11/10/2022 11/10/2022 11/11/2022 [...] as of this encounter Care Teams Surgical Scrub Tech Relationship Specialty Start Date End Date Marija Edgar APRN SYSTEM OPERATION SUPERINTENDENT PCP - General Nurse Practitioner 04/30/20 04/14/23 Esha Grimm PA-C [address] [facility] [address] PCP - General Family Medicine 05/04/23 Lita Oseguera Personal Advocate & Liaison (PAL) 02/28/20 03/27/23 Marija Edgar APRN SYSTEM OPERATION SUPERINTENDENT Assigned PCP 06/08/20 04/29/23 Keisha Dotson MD [address] [place], [place] [phone] Assigned Neuroscience Provider 06/04/20 04/01/23 Diana Desir, [facility] [address] [place], [place] 115666 Pharmacist Pharmacist 04/17/21 Rain Galaviz PA-C [address] [place] [address] [address] [place] [address] Physician Mold Clamper Dermatology 04/28/21 Tavia Wyatt MD [address] [place] [address] [place] [phone] Dermatology 07/14/21 Erica Farrell APRN SYSTEM OPERATION SUPERINTENDENT [address] [facility] [place] [address] [place] [address] Nurse Practitioner Cardiovascular Disease 09/09/21 Rich Barrett MD [address] [place] 8[address] Physician Ophthalmology 01/21/22 Neil Kent MD [address] [place], [place] 790275 Dermatology 02/24/22 Roney Story DPM [address] [facility] [address] [place], [place] 130317 Assigned Musculoskeletal Provider 03/20/22 08/13/22 Diana Desir, [facility] [address] [place], [place] 720456 Assigned MTM Pharmacist 04/07/22 Jelena David OD [address] [facility] [place] [address] Assigned Surgical Provider 05/08/22 10/08/22 Galo Burrell MD Assigned Heart and Vascular Provider 04/17/22 06/11/22 Livan Sharif MD [address] [place] [address] Cardiovascular Disease 05/14/22 Livan Sharif MD [address] [place] [address] Assigned Heart and Vascular Provider 06/12/22 07/23/22 Catherine Cm MD [address] [place] [address] Cardiovascular Disease 07/21/22 Valery Veronica PA-C [address] [place] [address] Physician Mold Clamper Dermatology 07/21/22 Catherine Cm MD [address] [facility] [address] [place] [address] Assigned Heart and Vascular Provider 07/24/22 11/05/22 Johnny Murillo MD [address] [place] [address] Assigned Musculoskeletal Provider 08/14/22 10/08/22 Brea Quinn APRN SYSTEM OPERATION SUPERINTENDENT [address] [place] [address] [phone] Nurse Practitioner Dermatology 09/21/22 Brea Quinn APRN SYSTEM OPERATION SUPERINTENDENT [address] [place] [address] Assigned Surgical Provider 10/09/22 05/01/24 [place] [address] [place] [address] Assigned Musculoskeletal Provider 10/09/22 05/01/24 Livan Sharif MD [address] [place] [address] Assigned Heart and Vascular Provider 11/06/22 11/12/22 Catherine Cm MD [address] [place] [address] Assigned Heart and Vascular Provider 11/13/22 05/27/23 Sydnie Martinez RN Personal Advocate & Liaison (PAL) Family Medicine 03/28/23 07/31/23 Alfonso Renteria MD [address] [facility] [address] [place] [address] Assigned Neuroscience Provider 04/02/23 09/29/24 Cheng Todd PA-C [address] [place] [address] [phone] Assigned PCP 04/30/23 07/15/23 Radha Lomeli APRN SYSTEM OPERATION SUPERINTENDENT [address] [place] [address] Assigned Heart and Vascular Provider 05/28/23 11/29/24 Jelena David OD [address] [facility] [place] [address] Ophthalmology 06/15/23 Pao Joseph, VJ Personal Advocate & Liaison (PAL) Nurse 08/01/23 11/07/23 Esha Grimm PA-C [address] [place] [phone] Assigned PCP 07/16/23 Valery Veronica PA-C [address] [place], [place] 104085 Physician Mold Clamper Dermatology 09/19/23 Rey Tay MD [address] [place] [address] MD Gastroenterology 09/20/23 Evans ZepedauaDO [address] [place] [address] Physician Gastroenterology 09/20/23 Philip Dumont MD [address] [place] [address] Physician Ophthalmology 09/22/23 Meredith Carrera PA-C [address] [place] [address] Assigned Gastroenterology Provider 11/01/23 Neil Kent MD [address] [place] [address] Dermatology 11/02/23 [place] [address] [facility] [place] [address] Neurological Surgery 12/26/23 Audrey Waite PA-C [address] [place] [address] Physician Mold Clamper Dermatology 02/28/24 Valery Veronica PA-C 426624 [place] [address] Physician Mold Clamper Dermatology 04/10/24 Herminia Hatch MD [address] [place] [address] Assigned Rheumatology Provider 07/02/24 Jelena David OD [address] [facility] [place] [address] Ophthalmology 08/30/24 [place] [address] [place] [address] Assigned Neuroscience Provider 09/30/24 Maru Man PA-C [address] [place] [address] Physician Mold Clamper Dermatology 10/03/24 Maru Man PA-C [address] [place] [address] Physician Mold Clamper Dermatology 10/22/24 Jelena David OD [address] [facility] [place] [address] Assigned Surgical Provider 10/31/24 Fabiano [place] NP [address] [place] [address] Assigned Heart and Vascular Provider 11/30/24 documented as of this encounter
--- OUTSIDE RECORDS SUMMARY | 2024-12-31 03:21 | XMS_ITS | Encounter Summary ---
Author Organization [place] Address [address] [place] [address] Care Team Providers Care Certified Pharmacy Technician Name Role Phone Diana Desir Stanislav [facility] Unavailable Rain Galaviz PA-C Unavailable Tavia Wyatt MD Unavailable Erica Farrell APRN ECONOMETRICIAN Unavailable Rich Barrett MD Unavailable [phone] Neil Kent MD Unavailable ThangKendrickDiana Stanislav [facility] Unavailable [phone] Livan Sharif MD Unavailable Catherine Cm MD Unavailable + Valery Veronica-C Unavailable [phone] Brea Quinn APRN ECONOMETRICIAN Unavailable Esha Grimm PA-C Primary Care Provider [phone] Radha Lomeli APRN ECONOMETRICIAN Unavailable Jelena David OD Unavailable [phone] Esha Grimm PA-C Unavailable [phone] Valery Veronica PA-C Unavailable Rey Tay MD Unavailable Duane Rocky Unavailable Philip Dumont MD Unavailable Meredith Carrera-C Unavailable Neil Kent MD Unavailable Juan Pablo Emmanuel MD Unavailable [phone] Audrey Waite PA-C Unavailable Valery Veronica PA-C Unavailable [phone] Herminia Hatch MD Unavailable Jelena David OD Unavailable Juan Pablo Emmanuel MD Unavailable Maru ManC Unavailable Maru ManC Unavailable Jelena David OD Unavailable Fabiano Correa NP Unavailable Encounter Details Date Type Department Care Team (Latest Contact Info) Description 11/29/2024 Results Follow-Up [facility] [address] [place] [address] Meredith Carrera PA-C [address] [place] [address] [phone] Dx: Bloating symptom (Primary Dx) Social History Tobacco Use Types [...] 10/24/2024 [facility] [...] exercise at this level? 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 Gender Identity Female 03/02/2021 5:45 PM CDT Sexual Orientation Straight 02/28/2020 12 :51 AM CDT documented as of this encounter Plan of Treatment Upcoming Encounters Date Type Department Care Team (Latest Contact Info) Description 01/02/2025 1:10 PM CDT Ancillary Procedure [facility] [address] [place] [phone] Lauren Claudio PA-C [address] [place] [address] [phone] 01/17/2025 10:00 AM CDT Appointment [facility] [address] [place] [phone] Lauren Claudio PA-C [address] [place] [address] 04/16/2025 11:00 AM CDT Virtual Visit [facility] [address] 4th [place] [phone] Meredith Carrera PA-C [address] [place], [place] 8[address]25 Scheduled Orders Name Type Priority Associated Diagnoses Orde r Schedule Calprotectin Feces Lab Routine Bloating symptom Irregular bowel habits Expected: 01/19/2025 (Approximate), Expires: 12/20/2025 documented as of this encounter Visit Diagnoses Diagnosis Bloating symptom- Primary Flatulence, eructation, and gas pain Irregular bowel habits Other specified disorder of intestines documented in this encounter Additional Health Concerns Assessment Noted Time PHQ-9 Depression Total Score: 5 10/25/19 25 10:38 AM CDT documented as of this encounter Care Teams Certified Pharmacy Technician Relationship Specialty Start Date End Date Esha Grimm PA-C [address] [place] [phone] PCP - General Family Medicine 05/04/23 Diana Desir, [facility] [address] [place] [address] Pharmacist Pharmacist 04/17/21 Rain Galaviz PA-C [address] [place] [address] [place] [address] Physician Loan Servicing Specialist Dermatology 04/28/21 Tavia Wyatt MD [address] [place] [address] [address] [facility] [place] [place] [phone] Dermatology 07/14/21 Erica Farrell APRN ECONOMETRICIAN [address] [place], [place] 9184[address] Nurse Practitioner Cardiovascular Disease 09/09/21 Rcih Barrett MD [address] [place] [address]115 Physician Ophthalmology 01/21/22 Neil Kent MD [address] [place], [place] 434665 Dermatology 02/24/22 [facility] [address] [place], [place] 984336 Assigned [place] Pharmacist 04/07/22 Livan Sharif MD [address] [place] [address] Cardiovascular Disease 05/14/22 Catherine Cm MD [address] [place] 940135 Cardiovascular Disease 07/21/22 Valery Veronica, PA-C [address] [place] [address] Physician Loan Servicing Specialist Dermatology 07/21/22 Brea Quinn APRN ECONOMETRICIAN [address] [place] [address] Nurse Practitioner Dermatology 09/21/22 Radha Lomeli APRN ECONOMETRICIAN [address] [facility] [address] [place] [address] Assigned Heart and Vascular Provider 05/28/23 11/29/24 Jelena David OD [address] [facility] [place] [address] MD Ophthalmology 06/15/23 Esha Grimm PA-C [address] [place] [phone] Assigned PCP 07/16/23 Valery Veronica PA-C [address] [place] [address] Physician Loan Servicing Specialist Dermatology 09/19/23 Rey Tay MD [address] [place] [address] 618435 MD Gastroenterology 09/20/23 Rocky Zepeda DO [address] [place] [address] Physician Gastroenterology 09/20/23 Philip Dumont MD [address] [place] [address] 768305 Physician Ophthalmology 09/22/23 Meredith Carrera PA-C [address] [place] [address] [phone] Assigned Gastroenterology Provider 11/01/23 Neil Kent MD [address] [place] [address] Dermatology 11/02/23 [place] [address] [facility] [address] [place] [address] Neurological Surgery 12/26/23 Audrey Waite PA-C [address] [place] [address] Physician Loan Servicing Specialist Dermatology 02/28/24 Valery Veronica PA-C 893747 [address], [place] [address] Physician Loan Servicing Specialist Dermatology 04/10/24 Herminia Hatch MD [address] [place] [address] [phone] Assigned Rheumatology Provider 07/02/24 Jelena David OD [address] [place] [address] [place] [address] Ophthalmology 08/30/24 [place] [address] [place] [address] Assigned Neuroscience Provider 09/30/24 Maru Man PA-C [address] [place] [address] Physician Loan Servicing Specialist Dermatology 10/03/24 Maru Man PA-C [address] [place] [address] Physician Loan Servicing Specialist Dermatology 10/22/24 Jelena David OD [address] [facility] [place] [address] Assigned Surgical Provider 10/31/24 Fabiano [place] NP [address] [place] [address] Assigned Heart and Vascular Provider 11/30/24 documented as of this encounter
--- OUTSIDE RECORDS SUMMARY | 2024-12-31 03:21 | XMS_ITS | Encounter Summary ---
Author Organization [facility] Address [address] [place] [address] Care Team Providers Care Freight Loading Supervisor Name Role Phone Lita Oseguera Unavailable Unavailable Marija Edgar APRN BESSEMER CONVERTER OPERATOR Primary Care Provider + Marija Edgar APRN BESSEMER CONVERTER OPERATOR Unavailable [phone] Keisha Dotson MD Unavailable Diana Desir [facility] Unavailable Rain Galaviz PA-C Unavailable Tavia Wyatt MD Unavailable Erica Farrell APRN BESSEMER CONVERTER OPERATOR Unavailable Rich Barrett MD Unavailable [phone] Neil Kent MD Unavailable Roney Story DPM Unavailable Diana Desir [facility] Unavailable Jelena David OD Unavailable Livan Sharif MD Unavailable Livan Sharif MD Unavailable Catherine Cm MD Unavailable + Valery Veronica PA-C Unavailable Catherine Cm MD Unavailable + Johnny Murillo MD Unavailable [phone] Brea Quinn RACE AND SPORTS BOOK WRITER BESSEMER CONVERTER OPERATOR Unavailable [phone] Brea Quinn RACE AND SPORTS BOOK WRITER BESSEMER CONVERTER OPERATOR Unavailable [phone] Jose Francisco Johnson MD Unavailable Livan Sharif MD Unavailable Catherine Cm MD Unavailable + Sydnie Martinez RN Unavailable Unavailable Alfonso Renteria MD Unavailable [phone] Esha Grimm PA-C Primary Care Provider Cheng Todd PA-C Unavailable [phone] Radha Lomeli RACE AND SPORTS BOOK WRITER BESSEMER CONVERTER OPERATOR Unavailable Jelena David OD Unavailable Pao Joseph RN Unavailable Unavailable Esha Grimm PA-C Unavailable [phone] Valery Veronica PA-C Unavailable Rey Tay MD Unavailable Rocky Zepeda DO Unavailable Philip Dumont MD Unavailable Meredith Carrera PA-C Unavailable Neil Kent MD Unavailable Juan Pablo Emmanuel MD Unavailable [phone] Audrey Waite PA-C Unavailable Valery Veronica PA-C Unavailable Herminia Hatch MD Unavailable Jelena David OD Unavailable Juan Pablo Emmanuel MD Unavailable [phone] Maru Man PA-C Unavailable + Maru Man PA-C Unavailable [phone] Jelena David OD Unavailable [phone] Madeline Fabiano Gabo HOOP DRIVING MACHINE OPERATOR Unavailable [phone] Encounter Details Date Type Department Care Team (Late st Contact Info) Description 07/20/2022 MyC Medical Advice [facility] Heart [facility] [address] [facility] [address] [place] [address] Livan Sharif MD [address] [facility] [address] [place], [place] [address] Social History Tobacco Use Types Packs/Day Years [...] How often do you attend mu-ism or synagogue serv ices? Never 09/22/2021 Do [...] points; Administer PHQ-9 if positive 1 05/13/2022 [facility] of Occupat ional [...] a skilled nursing (including now)? No 09/22/2021 [place] Depression Scale Answer Date Recorded [place] Depression Score 5 01/14/2021 Last EPDS Self Harm Result Not on file 01/14 Education Answer Date Recorded What is the highest level of school you have completed or the highest degree you have received? 12th grade 08/07/2020 Comments No Sex and Gender Information Value Date Recorded Sex Assigned at Female 03/02/2021 5:45 PM CDT Legal Sex Female 4:13 AM SUPPLY AND DISTRIBUTION MANAGER Gender Identity Female 03/02/2021 5:45 PM CDT Sexual Orientation Straight 02/28/2020 12 :51 AM CDT COVID-19 Exposure Response Date Recorded In the last 10 days, have yo u been in contact with someone who was confirmed or suspected to have Coronavirus/COVID-19? No / Unsure 07/23/2022 6:45 AM SUPPLY AND DISTRIBUTION MANAGER documented as of this encounter Plan of Treatment Upcoming Encounters Date Type Department Care Team (Latest Contact Info) Description 01/02/2025 1:10 PM CDT Ancillary Procedure [address] [phone] Lauren Claudio PA-C [address] [place], [place] [phone] 01/17/2025 10:[address] [facility] Respiratory [address] [place] [address] Lauren Claudio PA-C [address] [place], [place] [phone] 04/16/2025 11:00 AM CDT Virtual Visit [facility] [address] 4th [place] [phone] Meredith Carrera PA-C [address] [place] [address] 133465 documented as of this encounter Visit Diagnoses [...] as of this encounter Care Teams Freight Loading Supervisor Relationship Specialty Start Date End Date Marija Edgar APRN CNP PCP - General Nurse Practitioner 04/30/20 04/14/23 sEha Grimm PA-C [address] [place] [address] PCP - General Family Medicine 05/04/23 Lita Oseguera Personal Advocate & Liaison (PAL) 02/28/20 03/27/23 Marija Edgar APRN BESSEMER CONVERTER OPERATOR Assigned PCP 06/08/20 04/29/23 Keisha Dotson MD 909 [place] [address] Assigned Neuroscience Provider 06/04/20 04/01/23 [facility] 3033 [place] [address] Pharmacist Pharmacist 04/17/21 Rain Galaviz PA-C [address] [place] [address] [address] [facility] [place] [address] Physician Animal Attendants And Trainers Dermatology 04/28/21 Tavia Wyatt MD [address] [place] [address] [address] [facility] [place] [address] Dermatology 07/14/21 Erica Farrell APRN BESSEMER CONVERTER OPERATOR [address] [place] [address] Nurse Practitioner Cardiovascular Disease 09/09/21 Rich Barrett MD [address] [place] 2186[address] Physician Ophthalmology 01/21/22 Neil Kent MD [address] [place] [address] Dermatology 02/24/22 Roney Story DPM [address] [facility] [address] [place] [address] Assigned Musculoskeletal Provider 03/20/22 08/13/22 [facility] 30[address] [place] [address] Assigned MTM Pharmacist 04/07/22 Jelena David OD [address] [facility] [place] [address] Assigned Surgical Provider 05/08/22 10/08/22 Livan Sharif MD [address] [place] [address] Cardiovascular Disease 05/14/22 Livan Sharif MD [address] [place] [address] Assigned Heart and Vascular Provider 06/12/22 07/23/22 Catherine Cm MD [address] [place] 547805 Cardiovascular Disease 07/21/22 Valery Veronica, PAUcheC [address] [place] [address] Physician Animal Attendants And Trainers Dermatology 07/21/22 Catherine Cm MD [address] [place] [address] Assigned Heart and Vascular Provider 07/24/22 11/05/22 Johnny Murillo MD [address] [facility] [address] [place] [address] Assigned Musculoskeletal Provider 08/14/22 10/08/22 Brea Quinn APRN BESSEMER CONVERTER OPERATOR 500 [facility], [place] 562[address] Nurse Practitioner Dermatology 09/21/22 Brea Quinn APRN BESSEMER CONVERTER OPERATOR 6401 [facility] [place] [address] Assigned Surgical Provider 10/09/22 05/01/24 [place] [address] [place] [address] 340907 Assigned Musculoskeletal Provider 10/09/22 05/01/24 Livan Sharif MD 6405 [facility] [address] [place] [address] Assigned Heart and Vascular Provider 11/06/22 11/12/22 Catherine Cm MD [address] [facility] [address] [place] 027025 Assigned Heart and Vascular Provider 11/13/22 05/27/23 Sydnie Martinez RN Personal Advocate & Liaison (PAL) Family Medicine 03/28/23 07/31/23 Alfonso Renteria MD [address] [facility] [address] [place] [address] Assigned Neuroscience Provider 04/02/23 09/29/24 Cheng Todd PA-C [address] [place] [address] Assigned PCP 04/30/23 07/15/23 Radha Lomeli APRN BESSEMER CONVERTER OPERATOR 6405 [facility] [address] [place] [address] Assigned Heart and Vascular Provider 05/28/23 11/29/24 Jelena David OD [address] [facility] [place] [address] Ophthalmology 06/15/23 Pao Joseph, VJ Personal Advocate & Liaison (PAL) Nurse 08/01/23 11/07/23 Esha Grimm PA-C [address] [place] [phone] Assigned PCP 07/16/23 Valery Veronica PA-C [address] [place] [address] Physician Animal Attendants And Trainers Dermatology 09/19/23 Rey Tay MD [address] [place] [address] 918245 Gastroenterology 09/20/23 Rocky Zepeda DO [address] [place] [address] Physician Gastroenterology 09/20/23 Philip Dumont MD 516 [place] [address] Physician Ophthalmology 09/22/23 Meredith Carrera PA-C [address] [place] [address] Assigned Gastroenterology Provider 11/01/23 Neil Kent MD [address] [address] Dermatology 11/02/23 [place] [address] [place] [address] Neurological Surgery 12/26/23 Audrey Waite PA-C [address] [place] [address] Physician Animal Attendants And Trainers Dermatology 02/28/24 Valery Veronica PA-C [address]184 [address] [place] [address] Physician Animal Attendants And Trainers Dermatology 04/10/24 Herminia Hatch MD [address] [place] [address] [id number] Assigned Rheumatology Provider 07/02/24 [place] [address] [place] [address] [place] [address] Ophthalmology 08/30/24 [place] [address] [place] [address] Assigned Neuroscience Provider 09/30/24 Maru Man PA-C [address] [place] [address] Physician Animal Attendants And Trainers Dermatology 10/03/24 Maru Man PA-C [address] [place] [address] Physician Animal Attendants And Trainers Dermatology 10/22/24 Jelena David OD [address] [facility] [place] [address] Assigned Surgical Provider 10/31/24 Fabiano Correa NP [address]405 [place] [address] Assigned Heart and Vascular Provider 11/30/24 documented as of this encounter
--- OUTSIDE RECORDS SUMMARY | 2024-12-31 03:21 | XMS_ITS | Encounter Summary ---
Author Organization [place] Address [address] [place] [address] Care Team Providers Care Chairman & Ceo Name Role Phone Diana Desir Stanislav [facility] Unavailable Rain Galaviz PA-C Unavailable Tavia Wyatt MD Unavailable Erica Farrell APRN MAST MAKER Unavailable Rich Barrett MD Unavailable [phone] Neil Kent MD Unavailable ThangKendrickDiana Stanislav [facility] Unavailable [phone] Livan Sharif MD Unavailable Catherine Cm MD Unavailable + Valery Veronica-C Unavailable Brea Quinn APRN MAST MAKER Unavailable Esha Grimm PA-C Primary Care Provider Radha Lomeli APRN MAST MAKER Unavailable Jelena David OD Unavailable [phone] Esha Grimm PA-C Unavailable [phone] Valery Veronica PA-C Unavailable Rey Tay MD Unavailable Duane Rockyanne [place] Unavailable Philip Dumont MD Unavailable [phone] LoreMeredith mayers PA-C Unavailable [phone] Neil Kent MD Unavailable Juan Pablo Emmanuel MD Unavailable [phone] Audrey Waite PA-C Unavailable [phone] Valery Veronica PA-C Unavailable [phone] Herminia Hatch MD Unavailable Jelena David OD Unavailable Juan Pablo Emmanuel MD Unavailable [phone] Maru Man-C Unavailable [phone] Maru Man-C Unavailable [phone] Jelena David OD Unavailable Encounter Details Date [...] week 05/07/2024 How often do you attend [facility] or faith services? 1 to 4 [...] Answer Date Recorded PHQ-2 Score 1 10/24/2024 [facility]at [facility] - [...] exercise at this level? 20 min 05/07/2024 [place] Depression Scale Answer Date Recorded [place] Depression Score 5 01/14/2021 Last EPDS Self [...] CDT Legal Sex Female 4:13 AM CONTRACT MAIL CARRIER Gender Identity Female 03/02/2021 5:45 PM CDT Sexual Orientation Straight 02/28/2020 12 :51 AM CDT documented as of this encounter Plan of Treatment Upcoming Encounters Date Type Department Care Team (Latest Contact Info) Description 01/02/2025 1:10 PM CDT Ancillary Procedure [address] [phone] Lauren Claudio PA-C [address] [place] [address] 01/17/2025 10:00 AM CDT Appointment [facility] Respiratory 5 [place] [phone] Lauren Claudio PA-C [address] [place] [address] 04/16/2025 11:00 AM CDT Virtual Visit [facility] Gastroenterology Clinic [place] [address] [facility] [address] 4th [place] [phone] Meredith Carrera PA-C [address] [place] [address] documented as of this encounter Visit Diagnoses Not on filedocumented in this encounter Additional Health Concerns Infection Onset Date Last Indicated Resolved Time Rule Out COVID-19 11/21/2024 11/21/2024 11/22/2024 12:10 AM CDT Influenza 11/21/2024 11/21/2024 11/28/2024 7:42 PM CDT Assessment Noted Time PHQ-9 Depression Total Score: 5 10/25/19 25 10:38 AM CDT documented as of this encounter Care Teams Chairman & Ceo Relationship Specialty Start Date End Date Esha Grimm PA-C [address] [place] [address] PCP - General Family Medicine 05/04/23 Diana Desir, [facility] [address] [place], [place] [address] Pharmacist Pharmacist 04/17/21 Rain Galaviz PA-C [address] [place] [address] [address] [facility] [place] [address] Physician Corporate Planning Manager Dermatology 04/28/21 Tavia Wyatt MD [address] [place] [address] [address] [place] [id number] Dermatology 07/14/21 Erica Farrell APRN MAST MAKER 6[address] [facility] [address] [place] [address] Nurse Practitioner Cardiovascular Disease 09/09/21 Rich Barrett MD [address] [place] 8[address] Physician Ophthalmology 01/21/22 Neli Kent MD 500 [place], [place] 795955 Dermatology 02/24/22 [facility] 3033 [place], [place] 339486 Assigned MTM Pharmacist 04/07/22 Livan Sharif MD [address] [place] 675[address] Cardiovascular Disease 05/14/22 Catherine Cm MD [address] [place] 447235 Cardiovascular Disease 07/21/22 Valery Veronica, PA-C 909 [place], [place] 685675 Physician Corporate Planning Manager Dermatology 07/21/22 Brea Quinn APRN MAST MAKER 500 [place], [place] 495795 Nurse Practitioner Dermatology 09/21/22 Radha Lomeli APRN MAST MAKER [address] [place] [address] Assigned Heart and Vascular Provider 05/28/23 11/29/24 Jelena David OD [address] [facility] [place] [address] Ophthalmology 06/15/23 Esha Grimm PA-C [address] [place] [phone] Assigned PCP 07/16/23 Valery Veronica PA-C [address] [place] [address] 176695 Physician Corporate Planning Manager Dermatology 09/19/23 Rey Tay MD [address] [place] [address] 765415 MD Gastroenterology 09/20/23 Rocky Zepeda DO [address] [place] [address] 095295 Physician Gastroenterology 09/20/23 Philip Dumont MD 6 [place], [place] 739125 Physician Ophthalmology 09/22/23 Meredith Carrera PA-C [address] [place] [address] 274395 Assigned Gastroenterology Provider 11/01/23 Neil Kent MD [address] [place] [address] 866870 Dermatology 11/02/23 [place] [address] [place] [facility] [address] Neurological Surgery 12/26/23 Audrey Waite PA-C 500 [place] [address] Physician Corporate Planning Manager Dermatology 02/28/24 Valery Veronica PA-C [address]24 [address] [place] [address] Physician Corporate Planning Manager Dermatology 04/10/24 Herminia Hatch MD [address] [place] [address] Assigned Rheumatology Provider 07/02/24 Jelena David OD [address] [place] [address] [place] [address] Ophthalmology 08/30/24 [place] [address] [place] [address] Assigned Neuroscience Provider 09/30/24 Maru Man PA-C [address] [place] [address] Physician Corporate Planning Manager Dermatology 10/03/24 Maru Man PA-C [address] [place] [address] Physician Corporate Planning Manager Dermatology 10/22/24 Jelena David OD [address] [place] [address] [place] [address] Assigned Surgical Provider 10/31/24 documented as of this encounter
--- OUTSIDE RECORDS SUMMARY | 2024-12-31 03:21 | XMS_ITS | Encounter Summary ---
Author Organization [place] Address [address] [place] [address] Care Team Providers Care Party Plan Demonstrator Name Role Phone Diana Desir Stanislav [facility] Unavailable Rain Galaviz PA-C Unavailable [phone] Tavia Wyatt MD Unavailable Erica Farrell APRN FAMILY SERVICES SPECIALIST Unavailable Rich Barrett MD Unavailable [phone] Neil Kent MD Unavailable ThangKendrickDiana Stanislav [facility] Unavailable [phone] Livan Sharif MD Unavailable Catherine Cm MD Unavailable + Valery Veronica-C Unavailable Brea Quinn APRN FAMILY SERVICES SPECIALIST Unavailable Esha Grimm PA-C Primary Care Provider Radha Lomeli APRN FAMILY SERVICES SPECIALIST Unavailable Jelena David OD Unavailable Esha Grimm PA-C Unavailable Valery Veronica PA-C Unavailable [phone] Rey Tay MD Unavailable Duane Rockyanne [place] Unavailable Philip Dumont MD Unavailable [phone] LoreMeredith mayers PA-C Unavailable [phone] Neil Kent MD Unavailable Juan Pablo Emmanuel MD Unavailable [phone] Audrey Waite PA-C Unavailable [phone] Valery Veronica PA-C Unavailable Herminia Hatch MD Unavailable Jelena David OD Unavailable Juan Pablo Emmanuel MD Unavailable [phone] Maru Man-C Unavailable [phone] Maru Man-C Unavailable [phone] Jelena David OD Unavailable [phone] Encounter Details Date Type Department Care Team [...] do you attend [facility] or spiritism services? 1 to 4 times [...] Date Recorded PHQ-2 Score 1 10/24/2024 [facility] of Occupat [...] exercise at this level? 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 Gender Identity Female 03/02/2021 5:45 PM CDT Sexual Orientation Straight 02/28/2020 12 :51 AM CDT documented as of this encounter Plan of Treatment Upcoming Encounters Date Type Department Care Team (Latest Contact Info) Description 01/02/2025 1:10 PM CDT Ancillary Procedure [address] [phone] Lauren Claudio PA-C [address] [place] [address] 01/17/2025 10:00 AM CDT Appointment [facility] Respiratory 5 [place] [phone] Lauren Claudio PA-C [address] [place] [address] 04/16/2025 11:00 AM CDT Virtual Visit [facility] Gastroenterology Clinic [place] [address] [facility] [address] 4th [place] [phone] Meredith Carrera PA-C [address] [place] [address] documented as of this encounter Visit Diagnoses Not on filedocumented in this encounter Additional Health Concerns Infection Onset Date Last Indicated Resolved Time Rule Out COVID-19 11/20/2024 11/20/2024 11/21/2024 11:23 AM CDT Rule Out COVID-19 11/21/2024 11/21/2024 11/22/2024 12:10 AM CDT Assessment Noted Time PHQ-9 Depression Total Score: 5 10/25/19 25 10:38 AM CDT documented as of this encounter Care Teams Party Plan Demonstrator Relationship Specialty Start Date End Date Esha Grimm PA-C [address] [place] [phone] PCP - General Family Medicine 05/04/23 Diana Desir, [facility] [address] [place], [place] [address] Pharmacist Pharmacist 04/17/21 Rain Galaviz PA-C [address] [place] [address] [address] [place] [address] Physician Structural Steel Worker Dermatology 04/28/21 Tavia Wyatt MD [address] [place] [address] [address] [place] [facility] [place] [id number] Dermatology 07/14/21 Erica Farrell APRN FAMILY SERVICES SPECIALIST 6405 [facility] [address] [place], [place] 870135 Nurse Practitioner Cardiovascular Disease 09/09/21 Rich Barrett MD [address] [place], [place] 000[address] Physician Ophthalmology 01/21/22 Neil Kent MD 500 [place], [place] 729005 Dermatology 02/24/22 Diana Desir, [facility] [address] [place], [place] 875756 Assigned MTM Pharmacist 04/07/22 Livan Sharif MD [address] 057295 Cardiovascular Disease 05/14/22 Catherine Cm MD [address] 734465 Cardiovascular Disease 07/21/22 Valery Veronica, PA-C 909 [place] [address] Physician Structural Steel Worker Dermatology 07/21/22 Brea Quinn APRN FAMILY SERVICES SPECIALIST 500 [place], [place] 041175 Nurse Practitioner Dermatology 09/21/22 Radha Lomeli APRN FAMILY SERVICES SPECIALIST [address] [place] [address]25 Assigned Heart and Vascular Provider 05/28/23 11/29/24 [place] [address] [facility] [place] [address] MD Ophthalmology 06/15/23 Esha Grimm PA-C [address] [place] [phone] Assigned PCP 07/16/23 Valery Veronica PA-C [address] [place] [address] 788945 Physician Structural Steel Worker Dermatology 09/19/23 Rey Tay MD [address] [place] [address] 225175 MD Gastroenterology 09/20/23 Rocky Zepeda DO [address] [place] [address] 895255 Physician Gastroenterology 09/20/23 Philip Dumont MD 6 [place], [place] 291755 Physician Ophthalmology 09/22/23 Meredith Carrera PA-C [address] [place] [address] 790515 Assigned Gastroenterology Provider 11/01/23 Neil Kent MD [address] 477760 Dermatology 11/02/23 [place] [address] [place] [address] Neurological Surgery 12/26/23 Audrey Waite PA-C 500 [place] [address] Physician Structural Steel Worker Dermatology 02/28/24 Valery Veronica PA-C 171336 [address] [place] [address] Physician Structural Steel Worker Dermatology 04/10/24 Herminia Hatch MD [address] [place] [address] Assigned Rheumatology Provider 07/02/24 Jelena David OD [address] [place] [address] [place] [address] Ophthalmology 08/30/24 [place] [address] [place] [address] Assigned Neuroscience Provider 09/30/24 Maru Man PA-C [address] [place] [address] Physician Structural Steel Worker Dermatology 10/03/24 Maru Man PA-C [address] [place] [address] Physician Structural Steel Worker Dermatology 10/22/24 Jelena David OD [address] [place] [address] [place] [address] Assigned Surgical Provider 10/31/24 documented as of this encounter
--- OUTSIDE RECORDS SUMMARY | 2024-12-31 03:21 | XMS_ITS | Encounter Summary ---
Author Organization [facility] Address [address] [place] [address] Care Team Providers Care Fuel Cell Systems Engineer Name Role Phone Diana Desir [facility] Unavailable Rain Galaviz PA-C Unavailable Tavia Wyatt MD Unavailable [phone] Erica Farrell APRN EMPLOYEE COMMUNICATIONS INTERN Unavailable Rich Barrett MD Unavailable [phone] Neil Kent MD Unavailable Diana Desir [facility] Unavailable Livan Sharif MD Unavailable Catherine Cm MD Unavailable + Valery Veronica PA-C Unavailable Brea Quinn MOBILE LOUNGE DRIVER EMPLOYEE COMMUNICATIONS INTERN Unavailable Brea Quinn MOBILE LOUNGE DRIVER EMPLOYEE COMMUNICATIONS INTERN Unavailable Jose Francisco Johnson MD Unavailable Alfonso Renteria MD Unavailable [phone] Esha Grimm PA-C Primary Care Provider Radha Lmoeli APRN EMPLOYEE COMMUNICATIONS INTERN Unavailable Jelena David OD Unavailable Pao Joseph RN Unavailable Unavailable Esha Grimm Adam PA-C Unavailable [phone] Valery Veronica PA-C Unavailable Rey Tay MD Unavailable Rocky Zepeda DO Unavailable Philip Dumont MD Unavailable [phone] Meredith Carrera PA-C Unavailable Neil Kent MD Unavailable Juan Pablo Emmanuel MD Unavailable Audrey Waite PA-C Unavailable Valery Veronica PA-C Unavailable Herminia Hatch MD Unavailable Jelena David OD Unavailable Juan Pbalo Emmanuel MD Unavailable Maru Man PA-C Unavailable Maru Man PA-C Unavailable Jelena David OD Unavailable [phone] Fabiano Correa NP Unavailable [phone] Encounter Details Date Type Department Care Team (Late st Contact Info) Description 09/20/2023 [facility] Medical Advice [facility] [address] [place] [address] Jeffery Vieira, RN Social History [...] PM CDT Legal Sex Female 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 AM INTELLIGENCE ENGINEER Gender Identity Female 03/02/2021 5:45 PM CDT Sexual Orientation Straight 02/28/2020 12 :51 AM CDT documented as of this encounter Plan of Treatment Upcoming Encounters Date Type Department Care Team (Latest Contact Info) Description 01/02/2025 1:10 PM CDT Ancillary Procedure [facility] [id number] [place] [phone] Lauren Claudio PA-C [address] [place] [address] 01/17/2025 10:00 AM CDT Appointment [facility] Respiratory [address] [place] [phone] Lauren Claudio PA-C [address] [place] [address] 04/16/2025 11:00 AM CDT Virtual Visit [facility] [address] 4th [place] [phone] Meredith Carrera PA-C [address] [place] [address] 940655 documented as of this encounter Visit Diagnoses [...] Total Score: 4 06/20/20 23 8:40 AM INTELLIGENCE ENGINEER documented as of this encounter Care Teams Fuel Cell Systems Engineer Relationship Specialty Start Date End Date Esha Grimm PA-C [address] [place] [address] PCP - General Family Medicine 05/04/23 [facility] 3033 [place] [address] Pharmacist Pharmacist 04/17/21 Rain Galaviz PA-C [address] [place] [address] [address] [place] [address] Physician Principal Consulting Engineer Dermatology 04/28/21 Tavia Wyatt MD [address] [place] [address] [address] [facility] [address] Dermatology 07/14/21 Erica Farrell APRN EMPLOYEE COMMUNICATIONS INTERN [address] [place] 9567[address] Nurse Practitioner Cardiovascular Disease 09/09/21 Rich Barrett MD [address] [place] 951245 Physician Ophthalmology 01/21/22 Neil Kent MD 500 [place], [place] 258825 Dermatology 02/24/22 [facility] 3033 [place] [address] Assigned MTM Pharmacist 04/07/22 Livan Sharif MD [address] [address] [place] [address] Cardiovascular Disease 05/14/22 Catherine Cm MD 6400 [facility] [address] [place] [address] Cardiovascular Disease 07/21/22 Valery Veronica PA-C 909 [place] [address] Physician Principal Consulting Engineer Dermatology 07/21/22 Brea Quinn APRN EMPLOYEE COMMUNICATIONS INTERN [address] [place] [address] Nurse Practitioner Dermatology 09/21/22 Brea Quinn APRN EMPLOYEE COMMUNICATIONS INTERN [address] [place] [address] Assigned Surgical Provider 10/09/22 05/01/24 [place] [address] [facility] 300 [place] [address] Assigned Musculoskeletal Provider 10/09/22 05/01/24 Alfonso Renteria MD 5775 [facility] 200 [place], [place] 433916 Assigned Neuroscience Provider 04/02/23 09/29/24 Radha Lomeli APRN EMPLOYEE COMMUNICATIONS INTERN 6[address] [facility] [address] [place] [address] Assigned Heart and Vascular Provider 05/28/23 11/29/24 Jelena David OD [address] [facility] [address] Ophthalmology 06/15/23 Pao Joseph, RN Personal Advocate & Liaison (PAL) Nurse 08/01/23 11/07/23 Esha Grimm PA-C [address] [place] [phone] Assigned PCP 07/16/23 Valery Veronica PA-C [address] [place] [address] 991255 Physician Principal Consulting Engineer Dermatology 09/19/23 Rey Tay MD [address] [place] [address] 114235 MD Gastroenterology 09/20/23 Rocky Zepeda DO [address] [place] [address] 435385 Physician Gastroenterology 09/20/23 Philip Dumont MD [address] [place] [address] 463365 Physician Ophthalmology 09/22/23 Meredith Carrera PA-C [address] [place] [address] 968855 Assigned Gastroenterology Provider 11/01/23 Neil Kent MD [address] [place] [address] Dermatology 11/02/23 [place] [address] [place] [address] Neurological Surgery 12/26/23 Audrey Waite PA-C 500 [place] [address] Physician Principal Consulting Engineer Dermatology 02/28/24 Valery Veronica PA-C [address] [place] [address] Physician Principal Consulting Engineer Dermatology 04/10/24 Herminia Hatch MD [address] [place] [address] Assigned Rheumatology Provider 07/02/24 Jelena David OD [address] [place] [address] [place] [address] Ophthalmology 08/30/24 [place] [address] [place] [address] Assigned Neuroscience Provider 09/30/24 Maru Man PA-C [address] [place] [address] Physician Principal Consulting Engineer Dermatology 10/03/24 Maru Man PA-C [address] [place] [address] Physician Principal Consulting Engineer Dermatology 10/22/24 Jelena David OD [address] [place] [address] [place] [address] Assigned Surgical Provider 10/31/24 Fabiano Correa NP 6405 [facility] [place] [address] Assigned Heart and Vascular Provider 11/30/24 documented as of this encounter
--- OUTSIDE RECORDS SUMMARY | 2024-12-31 03:21 | XMS_ITS | Encounter Summary ---
Author Organization [facility] Address [address] [place] [address] Care Team Providers Care Terrazzo Grinder Name Role Phone Lita Oseguera Unavailable Unavailable Marija Edgar APRN KNOT BUMPER Primary Care Provider + Marija Edgar APRN KNOT BUMPER Unavailable [phone] Keisha Dotson MD Unavailable Diana Desir [facility] Unavailable Rain Galaviz PA-C Unavailable Tavia Wyatt MD Unavailable Erica Farrell APRN KNOT BUMPER Unavailable Rich Barrett MD Unavailable [phone] Neil Kent MD Unavailable Roney Story DPM Unavailable Diana Desir [facility] Unavailable [phone] Jelena David OD Unavailable Livan Sharif MD Unavailable Livan Sharif MD Unavailable Catherine Cm MD Unavailable + Valery Veronica PA-C Unavailable Catherine Cm MD Unavailable + Johnny Murillo MD Unavailable [phone] Brea Quinn TIMBER HARVESTER OPERATOR KNOT BUMPER Unavailable [phone] Brea Quinn TIMBER HARVESTER OPERATOR KNOT BUMPER Unavailable [phone] Jose Francisco Johnson MD Unavailable Livan Sharif MD Unavailable Catherine Cm MD Unavailable + Sydnie Martinez RN Unavailable Unavailable Alfonso Renteria MD Unavailable [phone] Esha Grimm PA-C Primary Care Provider Cheng Todd PA-C Unavailable [phone] Radha Lomeli TIMBER HARVESTER OPERATOR KNOT BUMPER Unavailable Jelena David OD Unavailable Pao Joseph RN Unavailable Unavailable Esha Grimm PA-C Unavailable [phone] Valery Veronica PA-C Unavailable Rey Tay MD Unavailable Rocky Zepeda DO Unavailable Philip Dumont MD Unavailable Meredith Carrera PA-C Unavailable Neil Kent MD Unavailable Juan Pablo Emmanuel MD Unavailable Audrey Waite PA-C Unavailable Valery Veronica PA-C Unavailable Herminia Hatch MD Unavailable Jelena David OD Unavailable Juan Pablo Emmanuel MD Unavailable Maru Man PA-C Unavailable + Maru Man PA-C Unavailable [phone] Jelena David OD Unavailable [phone] Madeline Fabiano Gabo TENTER FRAME OPERATOR Unavailable [phone] Encounter Details Date Type Department Care Team (Late st Contact Info) Description 07/07/2022 [facility] Medical Advice [facility] Heart [facility] [address] [facility] [address] [place] [address] Livan Sharif MD [address] [facility] [address] [place], [place] 581495 Social History Tobacco Use Types Packs/Day Years [...] Administer PHQ-9 if positive 1 05/13/2022 [facility] [...] a long term (including now)? 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 No / Unsure 06/25/2022 8:44 AM FUELS SALES REPRESENTATIVE documented as of this encounter Plan of Treatment Upcoming Encounters Date Type Department Care Team (Latest Contact Info) Description 01/02/2025 1:10 PM CDT Ancillary Procedure [address] [phone] Lauren Claudio PA-C [address] [place], [place] [phone] 01/17/2025 10:00 AM CDT Appointment [facility] Respiratory [address] [place] [address] Lauren Claudio PA-C [address] [place], [place] [phone] 04/16/2025 11:00 AM CDT Virtual Visit [facility]ology [facility] [address] 4[address] [place] [phone] Meredith Carrera PA-C [address] [place] [address] 172815 documented as of this encounter Visit Diagnoses [...] documented as of this encounter Care Teams Terrazzo Grinder Relationship Specialty Start Date End Date Marija Edgar APRN CNP PCP - General Nurse Practitioner 04/30/20 04/14/23 Esha Grimm PA-C [address] [place] [address] PCP - General Family Medicine 05/04/23 Lita Oseguera Personal Advocate & Liaison (PAL) 02/28/20 03/27/23 Marija Edgar APRN KNOT BUMPER Assigned PCP 06/08/20 04/29/23 Keisha Dotson MD 909 [place] [address] Assigned Neuroscience Provider 06/04/20 04/01/23 [facility] 3033 [place] [address] Pharmacist Pharmacist 04/17/21 Rain Galaviz PA-C [address] [place] [address] [address] [facility] [place] [address] Physician Transit Manager Dermatology 04/28/21 Tavia Wyatt MD [address] [place] [address] [address] [facility] [facility] [place] [address] Dermatology 07/14/21 Erica Farrell APRN KNOT BUMPER [address] [place] [address] Nurse Practitioner Cardiovascular Disease 09/09/21 Rich Barrett MD [address] [place] 735195 Physician Ophthalmology 01/21/22 Neil Kent MD [address] [place] [address] Dermatology 02/24/22 Roney Story DPM [address] [facility] [address] [place] [address] Assigned Musculoskeletal Provider 03/20/22 08/13/22 [facility] 3033 [place] [address] Assigned MTM Pharmacist 04/07/22 Jelena David OD 3[address] [facility] [place] [address] Assigned Surgical Provider 05/08/22 10/08/22 Livan Sharif MD [address] [place] [address] Cardiovascular Disease 05/14/22 Livan Sharif MD [address] [place] [address] Assigned Heart and Vascular Provider 06/12/22 07/23/22 Catherine Cm MD [address] [place] 199325 Cardiovascular Disease 07/21/22 Valery Veronica, PAUcheC [address] [place] [address] Physician Transit Manager Dermatology 07/21/22 Catherine Cm MD [address] [place] [address] Assigned Heart and Vascular Provider 07/24/22 11/05/22 Johnny [place] MD [address] [facility] [address] [place] [address] Assigned Musculoskeletal Provider 08/14/22 10/08/22 Brea Quinn APRN KNOT BUMPER 500 [facility] [place] [address]15 Nurse Practitioner Dermatology 09/21/22 Brea Quinn APRN KNOT BUMPER 6401 [facility] [place] [address] Assigned Surgical Provider 10/09/22 05/01/24 [place] [address] 910857 Assigned Musculoskeletal Provider 10/09/22 05/01/24 Livan Sharif MD 6405 [facility] [address] [place] [address] Assigned Heart and Vascular Provider 11/06/22 11/12/22 Catherine Cm MD [address] [facility] [address] [place] 058715 Assigned Heart and Vascular Provider 11/13/22 05/27/23 Sydnie Martinez RN Personal Advocate & Liaison (PAL) Family Medicine 03/28/23 07/31/23 Alfonso Renteria MD 5775 [facility] [address] 200 [place] [address] Assigned Neuroscience Provider 04/02/23 09/29/24 Cheng Todd PA-C [address] [place] [address] Assigned PCP 04/30/23 07/15/23 Radha Lomeli APRN KNOT BUMPER 6405 [facility] [address] [place] [address] Assigned Heart and Vascular Provider 05/28/23 11/29/24 Jelena David OD [address] [facility] [address] Ophthalmology 06/15/23 Pao Joseph, VJ Personal Advocate & Liaison (PAL) Nurse 08/01/23 11/07/23 Esha Grimm PA-C [address] [place] [phone] Assigned PCP 07/16/23 Valery Veronica PA-C [address] [place] [address] Physician Transit Manager Dermatology 09/19/23 Rey Tay MD [address] [place] [address] 472005 Gastroenterology 09/20/23 Rocky Zepeda DO [address] [place] [address] Physician Gastroenterology 09/20/23 Philip Dumont MD 516 [place] [address] Physician Ophthalmology 09/22/23 Meredith Carrera PA-C [address] [place] [address] Assigned Gastroenterology Provider 11/01/23 Neil Kent MD [address] [address] Dermatology 11/02/23 [place] [address] [place] [address] Neurological Surgery 12/26/23 Audrey Waite PA-C [address] [place] [address]43 Physician Transit Manager Dermatology 02/28/24 Valery Veronica PA-C 9[address]304 [address] [place] [address] Physician Transit Manager Dermatology 04/10/24 Herminia Hatch MD [address] [place] [address] 41547125 Assigned Rheumatology Provider 07/02/24 [place] [address] [place] [address] [place] [address] Ophthalmology 08/30/24 [place] [address] [place] [address] Assigned Neuroscience Provider 09/30/24 Maru Man PA-C [address] [place] [address] Physician Transit Manager Dermatology 10/03/24 Maru Man PA-C [address] [place] [address] Physician Transit Manager Dermatology 10/22/24 Jelena David OD 3305 [facility] [place] [address] Assigned Surgical Provider 10/31/24 Fabiano Correa NP [address]405 [place] [address] Assigned Heart and Vascular Provider 11/30/24 documented as of this encounter
--- OUTSIDE RECORDS SUMMARY | 2024-12-31 03:21 | XMS_ITS | Encounter Summary ---
Author Organization [place] Address [address] [place] [address] Care Team Providers Care Fruit Distributor Name Role Phone Diana Desir [facility] Unavailable Rain Galaviz PA-C Unavailable Tavia Wyatt MD Unavailable [phone] Erica Farrell APRN DIGITAL CONTENT SPECIALIST Unavailable Rich Barrett MD Unavailable [phone] Neil Kent MD Unavailable Diana Desir [facility] Unavailable Livan Sharif MD Unavailable Catherine Cm MD Unavailable + Valery Veronica PA-C Unavailable Brea Quinn NEEDLE LOOM WEAVER DIGITAL CONTENT SPECIALIST Unavailable Brea Quinn NEEDLE LOOM WEAVER DIGITAL CONTENT SPECIALIST Unavailable Jose Francisco Johnson MD Unavailable Alfonso Renteria MD Unavailable [phone] Esha Grimm PA-C Primary Care Provider [phone] Radha Lomeli APRN DIGITAL CONTENT SPECIALIST Unavailable Jelena David OD Unavailable [phone] Pao Joseph RN Unavailable Unavailable Esha Grimm Adam PA-C Unavailable [phone] Valery Veronica PA-C Unavailable Rey Tay MD Unavailable Rocky Zepeda DO Unavailable Philip Dumont MD Unavailable Meredith Carrera PA-C Unavailable Neil Kent MD Unavailable Juan Pablo Emmanuel MD Unavailable Audrey Waite PA-C Unavailable Valery Veronica PA-C Unavailable Herminia Hatch MD Unavailable Jelena David OD Unavailable Juan Pablo Emmanuel MD Unavailable [phone] Maru Man PA-C Unavailable Maru Man PA-C Unavailable Jelena David OD Unavailable Fabiano Correa NP Unavailable [phone] Encounter Details Date Type Department Care Team (Late st Contact Info) Description 09/08/2023 [facility] Medical Advice [facility]ology [facility] [address] [place] [address] Marija Polanco, RN Social History [...] 0 06/20/2023 [facility]at ional [...] exercise at this level? 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 Gender Identity Female 03/02/2021 5:45 PM CDT Sexual Orientation Straight 02/28/2020 12 :51 AM CDT documented as of this encounter Plan of Treatment Upcoming Encounters Date Type Department Care Team (Latest Contact Info) Description 01/02/2025 1:10 PM CDT Ancillary Procedure [facility] [address] [place] [phone] Lauren Claudio PA-C [address] [place] [address] 01/17/2025 10:00 AM CDT Appointment [facility] Respiratory [address] [place] [phone] Lauren Claudio PA-C [address] [place] [address] 04/16/2025 11:00 AM CDT Virtual Visit [facility] Gastroenterology Clinic [address] 4th [place] [phone] Meredith Carrera PA-C [address] [place] [address] 817895 documented as of this encounter Visit Diagnoses [...] Total Score: 4 06/20/20 23 8:40 AM SECONDARY ENGLISH TEACHER documented as of this encounter Care Teams Fruit Distributor Relationship Specialty Start Date End Date Esha Grimm PA-C [address] [place] [address] PCP - General Family Medicine 05/04/[address] [facility] [address] [place] [address] Pharmacist Pharmacist 04/17/21 Rain Galaviz PA-C [address] [place] [address] [address] [place] [address] Physician Radio Director Dermatology 04/28/21 Tavia Wyatt MD [address] [place] [address] [address] [facility] [place] [address] Dermatology 07/14/21 Erica Farrell APRN DIGITAL CONTENT SPECIALIST [address] [place] 283775 Nurse Practitioner Cardiovascular Disease 09/09/21 Rich Barrett MD [address] [place] 899315 Physician Ophthalmology 01/21/22 Neil Kent MD 500 [place] [address] Dermatology 02/24/22 Diana Desir, [facility] 3033 [place] [address] Assigned MTM Pharmacist 04/07/22 Livan Sharif MD [address] [address] [place] [address] Cardiovascular Disease 05/14/22 Catherine Cm MD [address] [place] [address] Cardiovascular Disease 07/21/22 Valery Veronica PA-C 909 [place] [address] Physician Radio Director Dermatology 07/21/22 Brea Quinn APRN DIGITAL CONTENT SPECIALIST 500 [place] [address] Nurse Practitioner Dermatology 09/21/22 Bera Quinn APRN DIGITAL CONTENT SPECIALIST 6401 [facility] [place] [address] Assigned Surgical Provider 10/09/22 05/01/24 [place] [address] [address] [facility] 300 [place] [address] Assigned Musculoskeletal Provider 10/09/22 05/01/24 Alfonso Renteria MD 5775 [facility] 200 [place], [place] 770316 Assigned Neuroscience Provider 04/02/23 09/29/24 Radha Lomeli APRN DIGITAL CONTENT SPECIALIST 6405 [facility] [address] [place] [address] Assigned Heart and Vascular Provider 05/28/23 11/29/24 Jelena David OD [address] [facility] [place] [address] Ophthalmology 06/15/23 Pao Joseph, VJ Personal Advocate & Liaison (PAL) Nurse 08/01/23 11/07/23 Esha Grimm PA-C [address] [place] [phone] Assigned PCP 07/16/23 Valery Veronica PA-C [address] [place] [address] 945755 Physician Radio Director Dermatology 09/19/23 Rey Tay MD [address] [place] [address] 692185 MD Gastroenterology 09/20/23 Rocky Zepeda DO [address] [place] [address] 514925 Physician Gastroenterology 09/20/23 Philip Dumont MD [address] [place] [address] 008585 Physician Ophthalmology 09/22/23 Meredith Carrera PA-C [address] [place] [address] 575865 Assigned Gastroenterology Provider 11/01/23 Neil Kent MD [address] [place] [address] Dermatology 11/02/23 [place] [address] [place] [address] Neurological Surgery 12/26/23 Audrey Waite PA-C 500 [place] [address] Physician Radio Director Dermatology 02/28/24 Valery Veronica PA-C 254648 [facility] [address] Physician Radio Director Dermatology 04/10/24 Herminia Hatch MD [address] [place] [address] Assigned Rheumatology Provider 07/02/24 Jelena David OD [address] [place] [address] [place] [address] Ophthalmology 08/30/24 [place] [address] [place] [address] Assigned Neuroscience Provider 09/30/24 Maru Man PA-C [address] [place] [address] Physician Radio Director Dermatology 10/03/24 Maru Man PA-C [address] [place] [address] Physician Radio Director Dermatology 10/22/24 Jelena aDvid OD [address] [place] [address] [place] [address] Assigned Surgical Provider 10/31/24 Fabiano [place] NP 6405 [facility] [place] [address] Assigned Heart and Vascular Provider 11/30/24 documented as of this encounter
--- OUTSIDE RECORDS SUMMARY | 2024-12-31 03:21 | XMS_ITS | Encounter Summary ---
Author Organization [facility] Address [address] [place] [address] 12278 Care Team Providers Care Recreation Engineer Name Role Phone Diana Desir Stanislav [facility] Unavailable Rain Galaviz PA-C Unavailable Tavia Wyatt MD Unavailable Erica Farrell APRN FOOD AND BEVERAGE ASSISTANT Unavailable Rich Barrett MD Unavailable [phone] Neil Kent MD Unavailable ThangKendrickDiana Stanislav [facility] Unavailable [phone] Livan Sharif MD Unavailable Catherine Cm MD Unavailable + Valery Veronica-C Unavailable Brea Quinn APRN FOOD AND BEVERAGE ASSISTANT Unavailable [phone] Esha Grimm PA-C Primary Care Provider Radha Lomeli APRN FOOD AND BEVERAGE ASSISTANT Unavailable Jelena David OD Unavailable [phone] Esha Grimm PA-C Unavailable [phone] Valery Veronica PA-C Unavailable Rey Tay MD Unavailable DuaneRocky Unavailable Philip Dumont MD Unavailable LoreMeredith mayers PA-C Unavailable Neil Kent MD Unavailable Juan Pablo Emmanuel MD Unavailable Audrey Waite PA-C Unavailable Valery Veronica PA-C Unavailable Herminia Hatch MD Unavailable Jelena David OD Unavailable [phone] Juan Pablo Emmanuel MD Unavailable [phone] Maru Man PA-C Unavailable Maru Man-C Unavailable Jelena David OD Unavailable Fabiano Correa NP Unavailable Encounter Details Date Type Department Care Team (Late st Contact Info) Description 11/23/2024 Results Follow-Up [facility] - General Medicine & Pediatrics [facility] [place] [address] Luis Angel Leone MD [address] [place] [address] Subj: Message about your results [...] Date Recorded PHQ-2 Score 1 10/24/2024 [facility] [...] exercise at this level? 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 Gender Identity Female 03/02/2021 5:45 PM CDT Sexual Orientation Straight 02/28/2020 12 :51 AM CDT documented as of this encounter Plan of Treatment Upcoming Encounters Date Type Department Care Team (Latest Contact Info) Description 01/02/2025 1:10 PM CDT Ancillary Procedure [facility] [address] [place] [phone] Lauren Claudio PA-C [address] [place] [address] 01/17/2025 10:00 AM CDT Appointment M [facility] [address] [place] [phone] Lauren Claudio PA-C [address] [place], [place] [phone] 04/16/2025 11:00 AM CDT Virtual Visit [facility] [address]th [place] [phone] Meredith Carrera PA-C [address] [place] [address] documented as of this encounter Visit Diagnoses Not on filedocumented in this encounter Additional Health Concerns Infection Onset Date Last Indicated Resolved Time Influenza 11/21/2024 11/21/2024 11/28/2024 7:42 PM CDT Assessment Noted Time PHQ-9 Depression Total Score: 5 10/25/19 25 10:38 AM CDT documented as of this encounter Care Teams Recreation Engineer Relationship Specialty Start Date End Date Esha Grimm PA-C [address] [place] [phone] PCP - General Family Medicine 05/04/23 Diana Desir, [facility] [address] [facility] [place] [address] Pharmacist Pharmacist 04/17/21 Rain Galaviz PA-C [address] [place] [address] DR RAZO [facility] [address] Physician Children'S Tutor Nursery Dermatology 04/28/21 Tavia Wyatt MD [address] [place] [address] DR [facility] [place] [phone] Dermatology 07/14/21 Erica Farrell APRN FOOD AND BEVERAGE ASSISTANT [address] [place] 57[address]25 Nurse Practitioner Cardiovascular Disease 09/09/21 Rich Barrett MD [address] [place], [place] [address] Physician Ophthalmology 01/21/22 Neil Kent MD 500 [place] [address] Dermatology 02/24/22 Diana Desir, [facility] [address] [place], [place] 771196 Assigned MTM Pharmacist 04/07/22 Livan Sharif MD [address] [place] 04[address]25 Cardiovascular Disease 05/14/22 Catherine Cm MD [address] [place], [place] 869425 Cardiovascular Disease 07/21/22 Valery Veronica, PA-C [address] [place], [place] 364095 Physician Children[employer] Dermatology 07/21/22 Brea Quinn APRN FOOD AND BEVERAGE ASSISTANT [address] [place], [place] [phone] Nurse Practitioner Dermatology 09/21/22 Armani Radha Sia [employer] FOOD AND BEVERAGE ASSISTANT [address] [place] [address] Assigned Heart and Vascular Provider 05/28/23 11/29/24 Jelena David OD [address] [facility] [place] [address] MD Ophthalmology 06/15/23 Esha Grimm PA-C [address] [place] [phone] Assigned PCP 07/16/23 Valery Veronica PA-C [address] [place] [address] 687765 Physician Children'S T[employer] Nursery Dermatology 09/19/23 Rey Tay MD [address] [place] [address] 494095 Gastroenterology 09/20/23 Rocky Zepeda DO [address] [place] [address] 873755 Physician Gastroenterology 09/20/23 Philip Dumont MD [address] [place] [address] Physician Ophthalmology 09/22/23 Meredith Carrera PA-C [address] [place] [address] Assigned Gastroenterology Provider 11/01/23 Neil Kent MD [address] [address] Dermatology 11/02/23 [place] [address] RA[address] [place] [address] Neurological Surgery 12/26/23 Audrey Waite PA-C [address] [place] [address] Physician Children[employer]S [employer] Nursery Dermatology 02/28/24 Valery Veronica PA-C 085001 [place], [place] [address] Physician Children'S Tutor Nursery Dermatology 04/10/24 Herminia Hatch MD [address] [place] [address]67[address] Assigned Rheumatology Provider 07/02/24 Jelena David OD [address] [place] [address] [place] [address] Ophthalmology 08/30/24 [place] [address] RAZO [address] [place] [address] Assigned Neuroscience Provider 09/30/24 Maru Man PA-C [address] [place] [address] Physician [facility]ery Dermatology 10/03/24 Maru Man PA-C [address] [place] [address] Physician [facility] Dermatology 10/22/24 Jelena David OD [address] [facility] [place] [address] Assigned Surgical Provider 10/31/24 Fabiano Correa NP [address] [place] [address] Assigned Heart and Vascular Provider 11/30/24 documented as of this encounter
--- OUTSIDE RECORDS SUMMARY | 2024-12-31 03:21 | XMS_ITS | Encounter Summary ---
Author Organization [facility] Address [address] [place] [address] Care Team Providers Care Greeting Card Writer Name Role Phone Diana Desir Stanislav [facility] Unavailable Rain Galaviz PA-C Unavailable Tavia Wyatt MD Unavailable Erica Farrell APRN TRANSPORTATION PLANNING TECHNICIAN Unavailable Rich Barrett MD Unavailable [phone] Neil Kent MD Unavailable ThangKendrickDiana Stanislav [facility] Unavailable [phone] Livan Sharif MD Unavailable Catherine Cm MD Unavailable + Valery Veronica-C Unavailable Brea Quinn APRN TRANSPORTATION PLANNING TECHNICIAN Unavailable [phone] Esha Grimm PA-C Primary Care Provider Radha Lomeli APRN TRANSPORTATION PLANNING TECHNICIAN Unavailable Jelena David OD Unavailable Esha Grimm PA-C Unavailable [phone] Valery Veronica PA-C Unavailable Rey Tay MD Unavailable Rocky Zepeda DO Unavailable Philip Dumont MD Unavailable [phone] Meredith Carrera-C Unavailable [phone] Neil Kent MD Unavailable Juan Pablo Emmanuel MD Unavailable [phone] Audrey Waite-C Unavailable Valery Veronica-C Unavailable Herminia Hatch MD Unavailable Jelena David OD Unavailable Juan Pablo Emmanuel MD Unavailable Maru ManC Unavailable Maru ManC Unavailable Jelena David OD Unavailable Fabiano Correa NP Unavailable Encounter Details Date Type Department Care Team (Late st Contact Info) Description 11/21/2024 Results Follow-Up [facility] [place] [address] [place] [address] Audrey Díaz PA-C Subj: Message [...] 1 10/24/2024 [facility] Occupational Stress Questionnaire Answer [...] exercise at this level? 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 Gender Identity Female 03/02/2021 5:45 PM CDT Sexual Orientation Straight 02/28/2020 12 :51 AM CDT documented as of this encounter Plan of Treatment Upcoming Encounters Date Type Department Care Team (Latest Contact Info) Description 01/02/2025 1:10 PM CDT Ancillary Procedure [facility] [address] [place] [phone] Lauren Claudio PA-C [address] [place] [address] 01/17/2025 10:00 AM CDT Appointment [facility] [address] [place] [address] Lauren Claudio PA-C [address] [place] [address] 04/16/2025 11:00 AM CDT Virtual Visit [facility] [address] 4th [place] [phone] Meredith Carrera PA-C [address] [place] [address] documented as of this encounter Visit Diagnoses [...] Start Date End Date Esha Grimm PA-C [address] [place] [phone] PCP - General Family Medicine 05/04/23 Diana Desir, [facility] [address] [place] [address] Pharmacist Pharmacist 04/17/21 Rain Galaviz PA-C [address] [place] [address] [facility] [place] [address] Physician Cooler Worker Dermatology 04/28/21 Tavia Wyatt MD [address] [place] [address] DR RA[address] [facility], [place] [phone] Dermatology 07/14/21 Erica Farrell APRN TRANSPORTATION PLANNING TECHNICIAN [address] [place] [address] Nurse Practitioner Cardiovascular Disease 09/09/21 Rich Barrett MD [address] [place], [place] 642685 Physician Ophthalmology 01/21/22 eNil Kent MD 500 [place], [place] 050565 Dermatology 02/24/22 [facility] [address] [place] [address] 141286 Assigned [place] Pharmacist 04/07/22 Livan Sharif MD [address] [place] [address] Cardiovascular Disease 05/14/22 Catherine Cm MD [address] [place] [address] Cardiovascular Disease 07/21/22 Valery Veronica, PA-C [address] [place] [address] Physician Cooler Worker Dermatology 07/21/22 Brea Quinn APRN TRANSPORTATION PLANNING TECHNICIAN [address] [place] [address] Nurse Practitioner Dermatology 09/21/22 Radha Lomeli APRN TRANSPORTATION PLANNING TECHNICIAN [address] [place] [address] Assigned Heart and Vascular Provider 05/28/23 11/29/24 Jelena David OD [address] [facility] [place] [address] MD Ophthalmology 06/15/23 Esha Grimm PA-C [address] [place] [phone] Assigned PCP 07/16/23 Valery Veronica PA-C [address] [place] [address] 825565 Physician Cooler Worker Dermatology 09/19/23 Rey Tay MD [address] [place] [address] 918325 MD Gastroenterology 09/20/23 Rocky Zepeda DO [address] [place] [address] 867305 Physician Gastroenterology 09/20/23 Philip Dumont MD [address] [place] [address] 530565 Physician Ophthalmology 09/22/23 Meredith Carrera PA-C [address] [place] [address] 672275 Assigned Gastroenterology Provider 11/01/23 Neil Kent MD [address] [place] [address] Dermatology 11/02/23 [place] [address] [place] [address] Neurological Surgery 12/26/23 Audrey Waite PA-C [address] [place] [address] Physician Cooler Worker Dermatology 02/28/24 Valery Veronica PA-C 6[address]10 [address] [address] Physician Cooler Worker Dermatology 04/10/24 Herminia Hatch MD [address] [place] [address] [id number] Assigned Rheumatology Provider 07/02/24 Jelena David OD [address] [place] [address] [place] [address] Ophthalmology 08/30/24 [place] [address] [place] [address] Assigned Neuroscience Provider 09/30/24 Maru Man PA-C [address] [place] [address] Physician Cooler Worker Dermatology 10/03/24 Maru Man PA-C [address] [place] [address] Physician Cooler Worker Dermatology 10/22/24 Jelena David OD [address] [facility] [place] [address] Assigned Surgical Provider 10/31/24 Fabiano Correa NP [address] [address] Assigned Heart and Vascular Provider 11/30/24 documented as of this encounter
--- OUTSIDE RECORDS SUMMARY | 2024-12-31 03:22 | XMS_ITS | Encounter Summary ---
Author Organization [facility] Address [address] [place] [address] Care Team Providers Care Oral Surgeon Name Role Phone Diana Desir Stanislav [facility] Unavailable Rain Galaviz PA-C Unavailable Tavia Wyatt MD Unavailable Erica Farrell APRN GRADUATE INTERNSHIP Unavailable Rich Barrett MD Unavailable [phone] Neil Kent MD Unavailable ThangKendrickDiana Stanislav [facility] Unavailable [phone] Livan Sharif MD Unavailable Catherine Cm MD Unavailable + Valery Veronica-C Unavailable Brea Quinn APRN GRADUATE INTERNSHIP Unavailable Esha Grimm PA-C Primary Care Provider [phone] Radha Lomeli APRN GRADUATE INTERNSHIP Unavailable Jelena David OD Unavailable Esha Grimm PA-C Unavailable [phone] Valery Veronica PA-C Unavailable [phone] Rey Tay MD Unavailable ZepedaRocky Unavailable Philip Dumont MD Unavailable [phone] LoreMeredith mayers PA-C Unavailable Neil Kent MD Unavailable Juan Pablo Emmanuel MD Unavailable Audrey Waite PA-C Unavailable Valery Veronica PA-C Unavailable [phone] Herminia Hatch MD Unavailable Jelena David OD Unavailable Juan Pablo Emmanuel MD Unavailable Maru Man PA-C Unavailable Maru Man PA-C Unavailable Jelena David OD Unavailable Fabiano Correa NP Unavailable Reason for Visit * Reason Onset Date Comments Call Back 10/09/2024 Heart Monitor Encounter Details Date Type Department Care Team (Late st Contact Info) Description 10/09/2024 Telephone [facility] [address] [facility] [address] [place] [address] Livan Sharif MD [address] [facility] [address] [place] [phone] Call Back (Heart Monitor) Social History Tobacco [...] PHQ-2 Score 1 02/07/2024 [facility] ional Health - Occupational [...] exercise at this level? 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 Carley Medina [facility] * Telephone Encounter - [...] we can certainly offer. Thanks! Rodrigo Correa, PARISH NURSE, GRADUATE INTERNSHIP * Telephone Encounter - Mary Stapleton - 10/09/2024 1:57 PM CDT M [facility] Center Phone Message May a detailed message [...] Description 01/02/2025 1:10 PM CDT Ancillary Procedure [facility] [address] [place] [phone] Lauren Claudio PA-C [address] [place] [address] 01/17/2025 10:00 AM CDT Appointment [facility] [address] [place] [address] Lauren Claudio PA-C [address] [place] [address] 04/16/2025 11:00 AM CDT Virtual Visit [facility] [address] 4th [place] [phone] Meredith Carrera PA-C [address] [place] [address] documented as of this encounter Visit Diagnoses [...] documented as of this encounter Care Teams Oral Surgeon Relationship Specialty Start Date End Date Esha Grimm PA-C [address] [place] [phone] PCP - General Family Medicine 05/04/23 Diana Desir, [facility] [address] [place] [address] Pharmacist Pharmacist 04/17/21 Rain Galaviz PA-C [address] [place] [address] DR [facility] [place] [address] Physician Scaffold Builder Dermatology 04/28/21 Tavia Wyatt MD [address] [place] [address] [address] [facility] [phone] Dermatology 07/14/21 Erica Farrell APRN GRADUATE INTERNSHIP [address] [place] [address] Nurse Practitioner Cardiovascular Disease 09/09/21 Rich Barrett MD [address] [place], [place] 322455 Physician Ophthalmology 01/21/22 Neil Kent MD 500 [place], [place] 876835 Dermatology 02/24/22 [facility] [address] [place] [address] 468476 Assigned [place] Pharmacist 04/07/22 Livan Sharif MD [address] [place] [address] Cardiovascular Disease 05/14/22 Catherine Cm MD [address] [place] [address] Cardiovascular Disease 07/21/22 Valery Veronica, PA-C [address] [place] [address] Physician Scaffold Builder Dermatology 07/21/22 Brea Quinn APRN GRADUATE INTERNSHIP [address] [place] [address] Nurse Practitioner Dermatology 09/21/22 Radha Lomeli APRN GRADUATE INTERNSHIP [address] [place] [address] Assigned Heart and Vascular Provider 05/28/23 11/29/24 Jelena David OD [address] [facility] [place] [address] MD Ophthalmology 06/15/23 Esha Grimm PA-C [address] [place] [address] Assigned PCP 07/16/23 Valery Veronica PA-C [address] [place] [address] 811705 Physician Scaffold Builder Dermatology 09/19/23 Rey Tay MD [address] [place] [address] 892785 MD Gastroenterology 09/20/23 Rocky Zepeda DO [address] [place] [address] 794205 Physician Gastroenterology 09/20/23 Philip Dumont MD [address] [place] [address] 953855 Physician Ophthalmology 09/22/23 Meredith Carrera PA-C [address] [place] [address] 004715 Assigned Gastroenterology Provider 11/01/23 Neil Kent MD [address] [place] [address] Dermatology 11/02/23 [place] [address] [place] [address] Neurological Surgery 12/26/23 Audrey Waite PA-C [address] [place] [address] Physician Scaffold Builder Dermatology 02/28/24 Valery Veronica PA-C 652092 99[place], [place] [address] Physician Scaffold Builder Dermatology 04/10/24 Herminia Hatch MD [address] [place] [address] [phone] Assigned Rheumatology Provider 07/02/24 Jelena David OD [address] [place] [address] [place] [address] Ophthalmology 08/30/24 [place] [address] [place] [address] Assigned Neuroscience Provider 09/30/24 Maru Man PA-C [address] [place] [address] Physician Scaffold Builder Dermatology 10/03/24 Maru Man PA-C [address] [place] [address] Physician Scaffold Builder Dermatology 10/22/24 Jelena David OD [address] [facility] [place] [address] Assigned Surgical Provider 10/31/24 Fabiano Correa NP [address] [place] [address] Assigned Heart and Vascular Provider 11/30/24 documented as of this encounter
--- OUTSIDE RECORDS SUMMARY | 2024-12-31 03:22 | XMS_ITS | Encounter Summary ---
Author Organization [facility] Address [address] [place] [address] Care Team Providers Care Haulage Boss Name Role Phone Diana Desir Stanislav [facility] Unavailable Rain Galaviz PA-C Unavailable Tavia Wyatt MD Unavailable Erica Farrell APRN MANAGER LICENSING Unavailable iRch Barrett MD Unavailable [phone] Neil Kent MD Unavailable ThangKendrickDiana Stanislav [facility] Unavailable [phone] Livan Sharif MD Unavailable Catherine Cm MD Unavailable + Valery Veronica-C Unavailable Brea Quinn APRN MANAGER LICENSING Unavailable [phone] Esha Grimm PA-C Primary Care Provider Radha Lomeli APRN MANAGER LICENSING Unavailable Jelena David OD Unavailable Esha Grimm PA-C Unavailable [phone] Valery Veronica PA-C Unavailable [phone] Rey Tay MD Unavailable DuaneRocky Unavailable Philip Dumont MD Unavailable PinoMeredith paez PA-C Unavailable [phone] Neil Kent MD Unavailable Juan Pablo Emmanuel MD Unavailable [phone] Audrey Waite PA-C Unavailable [phone] Valery Veronica PA-C Unavailable [phone] Herminia Hatch MD Unavailable Jelena David OD Unavailable Juan Pablo Emmanuel MD Unavailable [phone] Maru Man-C Unavailable [phone] Maru Man-C Unavailable Jelena David OD Unavailable Fabiano Correa NP Unavailable [phone] Encounter Details Date Type Department Care Team (Late st Contact Info) Description 10/01/2024 [facility] Medical Advice [facility] Heart [address] [address] Marija Bailey RN Social History Tobacco [...] 02/07/2024 [facility] exercise at this level? 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 Gender Identity Female 03/02/2021 5:45 PM CDT Sexual Orientation Straight 02/28/2020 12 :51 AM CDT documented as of this encounter Plan of Treatment Upcoming Encounters Date Type Department Care Team (Latest Contact Info) Description 01/02/2025 1:10 PM CDT Ancillary Procedure [facility] [address] [place] [phone] Lauren Claudio PA-C [address] [place] [address] [phone] 01/17/2025 10:00 AM CDT Appointment [facility] Respiratory [address] [place] [address] Lauren Claudio PA-C [address] [place] [address] 04/16/2025 11:00 AM CDT Virtual Visit [facility] [address] 4th [place] [phone] Meredith Carrera PA-C [address] [place] [address] 407805 documented as of this encounter Visit Diagnoses [...] documented as of this encounter Care Teams Haulage Boss Relationship Specialty Start Date End Date Esha Grimm PA-C [address] [place] [address] PCP - General Family Medicine 05/04/23 Diana Desir, [facility] [address] [place] [address] Pharmacist Pharmacist 04/17/21 Rain Galaviz PA-C [address] [place] [address] DR ARRIOL[address] [facility] [place] [address] Physician Corporate Travel Coordinator Dermatology 04/28/21 Tavia Wyatt MD [address] [place] [address] DR RAZO [facility] [place] [facility] [place] [phone] Dermatology 07/14/21 Erica Farrell APRN MANAGER LICENSING [address] [place] 471035 Nurse Practitioner Cardiovascular Disease 09/09/21 Rich Barrett MD [address] [place] [phone] Physician Ophthalmology 01/21/22 Neil Kent MD [address] [place] [address] 907595 Dermatology 02/24/22 Diana Desir, [facility] [address] [place], [place] 420416 Assigned [place] Pharmacist 04/07/22 Livan Sharif MD [address] [place] [id number] Cardiovascular Disease 05/14/22 Catherine Cm MD [address] [place] 607945 Cardiovascular Disease 07/21/22 Valery Veronica, PA-C [address] [place] [address] Physician Corporate Travel Coordinator Dermatology 07/21/22 Brea Quinn APRN MANAGER LICENSING [address] [place] [address] 576355 Nurse Practitioner Dermatology 09/21/22 Radha Lomeli, FIRE ALARM INSTALLER MANAGER LICENSING [address] [place] [address] Assigned Heart and Vascular Provider 05/28/23 11/29/24 Jelena David OD [address] [facility] [place] [address] MD Ophthalmology 06/15/23 Esha Grimm PA-C [address] [place] [address] Assigned PCP 07/16/23 Valery Veronica PA-C [address] [place] [address] 216215 Physician Corporate Travel Coordinator Dermatology 09/19/23 Rey Tay MD [address] [place] [address] 189635 Gastroenterology 09/20/23 Rocky Zepeda DO [address] [place] [address] 584075 Physician Gastroenterology 09/20/23 Philip Dumont MD [address] [place] [address] 009205 Physician Ophthalmology 09/22/23 Meredith Carrera PA-C [address] [place] [address] 968945 Assigned Gastroenterology Provider 11/01/23 Neil Kent MD [address] [place] [address] MD Dermatology 11/02/23 [place] [address] [place] [address] Neurological Surgery 12/26/23 Audrey Waite PA-C [address] [place] [address] Physician Corporate Travel Coordinator Dermatology 02/28/24 Valery Veronica PA-C [id number] [place] [address] Physician Corporate Travel Coordinator Dermatology 04/10/24 Herminia Hatch MD [address] [place] [address] [phone] Assigned Rheumatology Provider 07/02/24 Jelena David OD [address] [place] [address] [place] [address] Ophthalmology 08/30/24 [place] [address] [place] [address] Assigned Neuroscience Provider 09/30/24 Maru Man PA-C [address] [place] [address] Physician Corporate Travel Coordinator Dermatology 10/03/24 Maru Man PA-C [address] [place] [address] Physician Corporate Travel Coordinator Dermatology 10/22/24 Jelena David OD [address] [facility] [place] [address] Assigned Surgical Provider 10/31/24 Fabiano Correa NP [address] [place] [address] Assigned Heart and Vascular Provider 11/30/24 documented as of this encounter
--- OUTSIDE RECORDS SUMMARY | 2024-12-31 03:22 | XMS_ITS | Encounter Summary ---
Author Organization [facility] Address [address] [place] [address] Care Team Providers Care First Beater Name Role Phone Diana Desir [facility] Unavailable Rain Galaviz PA-C Unavailable Tavia Wyatt MD Unavailable [phone] Erica Farrell APRN FEATHERER Unavailable Rich Barrett MD Unavailable [phone] Neil Kent MD Unavailable Diana Desir [facility] Unavailable Livan Sharif MD Unavailable Catherine Cm MD Unavailable + Valery Veronica PA-C Unavailable Brea Quinn MARKETING MANAGER FEATHERER Unavailable [phone] Brea Quinn MARKETING MANAGER FEATHERER Unavailable [phone] Jose Francisco Johnson MD Unavailable Alfonso Renteria MD Unavailable [phone] Esha Grimm PA-C Primary Care Provider Lomeli, Radha E MARKETING MANAGER FEATHERER Unavailable [phone] Jelena David OD Unavailable Pao Joseph RN Unavailable Unavailable Esha Grimm Adam PA-C Unavailable [phone] Valery Veronica PA-C Unavailable Rey Tay MD Unavailable Rocky Zepeda DO Unavailable Philip Dumont MD Unavailable Meredith Carrera PA-C Unavailable Neil Kent MD Unavailable Juan Pablo Emmanuel MD Unavailable Audrey Waite PA-C Unavailable Valery Veronica PA-C Unavailable Herminia Hatch MD Unavailable Jelena David OD Unavailable [phone] Juan Pablo Emmanuel MD Unavailable Maru Man PA-C Unavailable Maru Man PA-C Unavailable Jelena David OD Unavailable Fabiano Correa NP Unavailable Encounter Details Date Type Department Care Team (Late st Contact Info) Description 08/31/2023 MyC Medical Advice [facility] [address] [facility] [address] [place] [address] Amalia Reyes, VJ Social History [...] Score 0 06/20/2023 [facility] - Occupational Stress Questionnaire Answer [...] exercise at this level? 30 min 03/10/2023 Labadie Depression Scale Answer Date Recorded Labadie Depression Score 5 01/14/2021 Last EPDS Self [...] CDT Legal Sex Female 4:13 AM INSIDE HORTICULTURAL SPECIALTY GROWER Gender Identity Female 03/02/2021 5:45 PM CDT Sexual Orientation Straight 02/28/2020 12 :51 AM CDT documented as of this encounter Plan of Treatment Upcoming Encounters Date Type Department Care Team (Latest Contact Info) Description 01/02/2025 1:10 PM CDT Ancillary Procedure [facility] [address] [place] [phone] Lauren Claudio PA-C [address] [place] [address] 01/17/2025 10:00 AM CDT Appointment [facility] Respiratory [address] [place] [phone] Lauren Claudio PA-C [address] [place] [address] 04/16/2025 11:00 AM CDT Virtual Visit [facility] [address] 4th [place] [phone] Meredith Carrera PA-C 9 [place], [place] 783855 documented as of this encounter Visit Diagnoses [...] Total Score: 4 06/20/20 23 8:40 AM INSIDE HORTICULTURAL SPECIALTY GROWER documented as of this encounter Care Teams First Beater Relationship Specialty Start Date End Date Esha Grimm PA-C [address] [place] [address] PCP - General Family Medicine 05/04/23 Diana Desir, [facility] [address] [place] [address] Pharmacist Pharmacist 04/17/21 Rain Galaviz PA-C [address] [place] [address] DR [address] [place] [address] Physician Instrumentation Supervisor Dermatology 04/28/21 Tavia Wyatt MD [address] [place] [address] [address] [facility] [place] [address] Dermatology 07/14/21 Erica Farrell APRN FEATHERER [address] [place] 500355 Nurse Practitioner Cardiovascular Disease 09/09/21 Rich Barrett MD [address] [place] 249865 Physician Ophthalmology 01/21/22 Neil Kent MD 500 [place] [address] Dermatology 02/24/22 [facility] 3033 [place] [address] Assigned MTM Pharmacist 04/07/22 Livan Sharif MD [address] [place] [address] Cardiovascular Disease 05/14/22 Catherine Cm MD [address] [place] [address] Cardiovascular Disease 07/21/22 Valery Veronica PA-C [address] [place] [address] Physician Instrumentation Supervisor Dermatology 07/21/22 Brea Quinn APRN FEATHERER 500 [place] [address] Nurse Practitioner Dermatology 09/21/22 Brea Quinn APRN FEATHERER 64[address] [place] [address] Assigned Surgical Provider 10/09/22 05/01/24 [place] [address] [address] [facility] [address] [place] [address] Assigned Musculoskeletal Provider 10/09/22 05/01/24 Alfonso Renteria MD [address] [facility] [address] [place], [place] 018876 Assigned Neuroscience Provider 04/02/23 09/29/24 Radha Lomeli APRN FEATHERER [address] [facility] [address] [place] [address] Assigned Heart and Vascular Provider 05/28/23 11/29/24 Jelena David OD [address] [facility] [place] [address] Ophthalmology 06/15/23 Pao Joseph, RN Personal Advocate & Liaison (PAL) Nurse 08/01/23 11/07/23 Esha Grimm PA-C [address] [place] [phone] Assigned PCP 07/16/23 Valery Veronica PA-C [address] [place] [address] 997645 Physician Instrumentation Supervisor Dermatology 09/19/23 Rey Tay MD [address] [place] [address] 592175 MD Gastroenterology 09/20/23 Rocky Zepeda DO [address] [place] [address] 284025 Physician Gastroenterology 09/20/23 Philip Dumont MD [address] [place] [address] 440495 Physician Ophthalmology 09/22/23 Meredith Carrera PA-C [address] [place] [address] 505545 Assigned Gastroenterology Provider 11/01/23 Neil Kent MD [address] [place] [address] Dermatology 11/02/23 [place] [address] [place] [address] Neurological Surgery 12/26/23 Audrey Waite PA-C 500 [place] [address] Physician Instrumentation Supervisor Dermatology 02/28/24 Valery Veronica PA-C [address] [place] [address] Physician Instrumentation Supervisor Dermatology 04/10/24 Herminia Hatch MD [address] [place] [address] Assigned Rheumatology Provider 07/02/24 Jelena David OD [address] [place] [address] [place] [address] Ophthalmology 08/30/24 [place] [address] [place] [address] Assigned Neuroscience Provider 09/30/24 Maru Man PA-C [address] [place] [address] Physician Instrumentation Supervisor Dermatology 10/03/24 Maru Man PA-C [address] [place] [address] Physician Instrumentation Supervisor Dermatology 10/22/24 Jelena David OD [address] [place] [address] [place] [address] Assigned Surgical Provider 10/31/24 Fabiano [place] FLAME GOUGER [address] [place] [address] Assigned Heart and Vascular Provider 11/30/24 documented as of this encounter
--- OUTSIDE RECORDS SUMMARY | 2024-12-31 03:22 | XMS_ITS | Encounter Summary ---
Author Organization [facility] Address [address] [place] [address] Care Team Providers Care Staffing Rn Name Role Phone Diana Desir [facility] Unavailable Rain GalavizC Unavailable Tavia Wyatt MD Unavailable Erica Farrell APRN PARAFFIN MACHINE OPERATOR Unavailable Rich Barrett MD Unavailable [phone] Neil Kent MD Unavailable DesirKendrickDiana Stanislav [facility] Unavailable [phone] Livan Sharif MD Unavailable Catherine Cm MD Unavailable + Valery Veronica-C Unavailable Brea Quinn TUBE DEPATCHER PARAFFIN MACHINE OPERATOR Unavailable Alfonso Renteria MD Unavailable [phone] Esha GrimmC Primary Care Provider [phone] Radha Lomeli APRN PARAFFIN MACHINE OPERATOR Unavailable Jelena David OD Unavailable [place], Esha M PA-C Unavailable [phone] Valery Veronica PA-C Unavailable Rey Tay MD Unavailable Rocky Zepeda DO Unavailable Philip Dumont MD Unavailable Meredith Carrera PA-C Unavailable Neil Kent MD Unavailable Juan Pablo Emmanuel MD Unavailable Audrey Waite PA-C Unavailable Valery Veronica PA-C Unavailable [phone] Herminia Hacth MD Unavailable Jelena aDvid OD Unavailable [phone] Juan Pablo Emmanuel MD Unavailable [phone] Maru Man PA-C Unavailable Maru Man PA-C Unavailable Jelena David OD Unavailable Fabiano Correa NP Unavailable Encounter Details Date Type Department Care Team (Late st Contact Info) Description 06/20/2024 MyC Medical Advice [facility] [address] [address] Carley Myles, RN Social History [...] Score 1 02/07/2024 [facility] - Occupational Stress Questionnaire Answer [...] exercise at this level? 20 min 05/07/2024 Odell Depression Scale Answer Date Recorded Odell Depression Score 5 01/14/2021 Last EPDS Self [...] PM CDT Legal Sex Female 4:13 AM SWATCH CHECKER Gender Identity Female 03/02/2021 5:45 PM CDT Sexual Orientation Straight 02/28/2020 12 :51 AM CDT documented as of this encounter Plan of Treatment Upcoming Encounters Date Type Department Care Team (Latest Contact Info) Description 01/02/2025 1:10 PM CDT Ancillary Procedure [facility] [address] [place] [address] Lauren Claudio PA-C [address] [place] [address] 01/17/2025 10:00 AM CDT Appointment [facility] Respiratory [address] [place] [address] Lauren Claudio PA-C [address] [place], [place] [phone] 04/16/2025 11:00 AM CDT Virtual Visit [facility] [place] [address] [facility] [address] 4th [place] [phone] Meredith Carrera PA-C 909 [place], [place] 143265 documented as of this encounter Visit Diagnoses [...] documented as of this encounter Care Teams Staffing Rn Relationship Specialty Start Date End Date Esha Grimm PA-C [address] [place] [phone] PCP - General Family Medicine 05/04/23 Diana Desir, [facility] [address] [place] [address] Pharmacist Pharmacist 04/17/21 Rain Galaviz PA-C [address] [place] [address] [place] [address] Physician Broaching Machine Set Up Operator Dermatology 04/28/21 Tavia Wyatt MD [address] [place] [address] [place] [address] Dermatology 07/14/21 Erica Farrell APRN PARAFFIN MACHINE OPERATOR [address] [place] [address] Nurse Practitioner Cardiovascular Disease 09/09/21 Rich Barrett MD [address] [place] 957535 Physician Ophthalmology 01/21/22 Neil Kent MD [address] [place] [address] 901765 Dermatology 02/24/22 Diana Desir, [facility] [address] [place] [address] 052206 Assigned [place] Pharmacist 04/07/22 Livan Sharif MD [address] [place] 6[address] Cardiovascular Disease 05/14/22 Catherine Cm MD [address] [facility] [place] [address] Cardiovascular Disease 07/21/22 Valery Veronica, PA-C [address] [place] [address] 992725 Physician Broaching Machine Set Up Operator Dermatology 07/21/22 Brea Quinn APRN PARAFFIN MACHINE OPERATOR [address] [place] [address] 693875 Nurse Practitioner Dermatology 09/21/22 Alfonso Renteria MD [address] [facility] [address] [place], [place] 588946 Assigned Neuroscience Provider 04/02/23 09/29/24 Radha Lomeli APRN PARAFFIN MACHINE OPERATOR [facility] [place] 1786900 [place], [place] 151835 Assigned Heart and Vascular Provider 05/28/23 11/29/24 Jelena David OD [address] [facility] [address] [address] [place] [phone] Ophthalmology 06/15/23 Esha Grimm PA-C [address] [place] [address]-59637283 Assigned PCP 07/16/23 Valery Veronica PA-C [address] [place] [address] Physician Broaching Machine Set Up Operator Dermatology 09/19/23 Rey Tay MD [address] [place] [address] 181785 Gastroenterology 09/20/23 Rocky Zepeda DO [address] [place] [address] 316965 Physician Gastroenterology 09/20/23 Philip Dumont MD [address] [place] [address] Physician Ophthalmology 09/22/23 Meredith Carrera PA-C [address] [place] [address] Assigned Gastroenterology Provider 11/01/23 Neil Kent MD [address] [address] Dermatology 11/02/23 [place] [address] [place] [address] 970097 Neurological Surgery 12/26/23 Audrey Waite PA-C [address] [place] [address] Physician Broaching Machine Set Up Operator Dermatology 02/28/24 Valery Veronica PA-C 879679 [place], [place] [address] Physician Broaching Machine Set Up Operator Dermatology 04/10/24 Herminia Hatch MD [address] [place] [address] [id number] Assigned Rheumatology Provider 07/02/24 Jelena David OD [address] [place] [address] [place] [address] Ophthalmology 08/30/24 [place] [address] [place] [address] Assigned Neuroscience Provider 09/30/24 Maru Man PA-C [address] [place] [address] Physician Broaching Machine Set Up Operator Dermatology 10/03/24 Maru Man PA-C [address] [place] [address] Physician Broaching Machine Set Up Operator Dermatology 10/22/24 Jelena David OD [facility] [facility] [place] [address] Assigned Surgical Provider 10/31/24 Fabiano [place], JUMBO OPERATOR [address] [place] [address] Assigned Heart and Vascular Provider 11/30/24 documented as of this encounter
--- OUTSIDE RECORDS SUMMARY | 2024-12-31 03:22 | XMS_ITS | Encounter Summary ---
Author Organization [place] Address [address] [place] [address]10 Care Team Providers Care Park Police Name Role Phone Diana Desir [facility] Unavailable [phone] Rain Galaviz PA-C Unavailable Tavia Wyatt MD Unavailable [phone] Erica Farrell APRN UNCLAIMED PROPERTY MANAGER Unavailable Rich Barrett MD Unavailable [phone] Neil Kent MD Unavailable Diana Desir [facility] Unavailable Livan Sharif MD Unavailable Catherine Cm MD Unavailable + Valery Veronica PA-C Unavailable Brea Quinn SUPERVISOR HEAVY EQUIPMENT UNCLAIMED PROPERTY MANAGER Unavailable Brea Quinn SUPERVISOR HEAVY EQUIPMENT UNCLAIMED PROPERTY MANAGER Unavailable [phone] Jose Francisco Johnson MD Unavailable Alfonso Renteria MD Unavailable [phone] Esha Grimm PA-C Primary Care Provider Radha Lomeli APRN UNCLAIMED PROPERTY MANAGER Unavailable Jelena David OD Unavailable [phone] Pao Joseph RN Unavailable Unavailable AlfaJesusEsha M PA-C Unavailable [phone] Valery Veronica PA-C Unavailable Rey Tay [...] Team (Late st Contact Info) Description 08/25/2023 [facility] [address] [address] Diana Desir, [facility] [address] [place], [place] [address] Social History Tobacco Use Types Packs/Day Years [...] week 03/10/2023 How often do you attend [facility] or buddhism services? 1 to [...] PHQ-2 Score 0 06/20/2023 [facility] [...] exercise at this level? 30 min 03/10/2023 [place] Depression Scale Answer Date Recorded [place] [...] PM CDT Legal Sex Female 4:13 AM MINIATURE MODEL MAKER Gender Identity Female 03/02/2021 5:45 PM CDT Sexual Orientation Straight 02/28/2020 12 :51 AM CDT documented as of this encounter Plan of Treatment Upcoming Encounters Date Type Department Care Team (Latest Contact Info) Description 01/02/2025 1:10 PM CDT Ancillary Procedure [facility] [address] [place] [address] Lauren Claudio, ROVERTO [address] [place] [address] 01/17/2025 10:00 AM CDT Appointment [facility] Respiratory [address] [place] [phone] Lauren Claudio PA-C [address] [place] [address] 04/16/2025 11:00 AM CDT Virtual Visit [facility] [address] 4th [place] [phone] Meredith Carrera PA-C 909 [place] [address] documented as of this encounter Visit Diagnoses [...] Total Score: 4 06/20/20 23 8:40 AM MINIATURE MODEL MAKER documented as of this encounter Care Teams Park Police Relationship Specialty Start Date End Date Esha Grimm PA-C [address] [place] [phone] PCP - General Family Medicine 05/04/23 Diana Desir, [facility] [address] [place] [address] Pharmacist Pharmacist 04/17/21 Rain Galaviz PA-C [address] [place] [address] [address] [place] [address] Physician Postdoctoral Research Fellow Dermatology 04/28/21 Tavia Wyatt MD [address] [place] [address] [place] [address] Dermatology 07/14/21 Erica Farrell APRN UNCLAIMED PROPERTY MANAGER [address] [place] [address] Nurse Practitioner Cardiovascular Disease 09/09/21 Rich Barrett MD [address] [place] [address] Physician Ophthalmology 01/21/22 Neil Kent MD 500 [place], [place] 164665 Dermatology 02/24/22 Diana Desir, [facility] [address] [place] [address] Assigned MTM Pharmacist 04/07/22 Livan Sharif MD [address] [place] 685455 Cardiovascular Disease 05/14/22 Catherine Cm MD [address] [id number] [place] [address] Cardiovascular Disease 07/21/22 Valery Veronica, PA-C 909 [place], [place] 400165 Physician Postdoctoral Research Fellow Dermatology 07/21/22 Brea Quinn APRN UNCLAIMED PROPERTY MANAGER 500 [place], [place] 170855 Nurse Practitioner Dermatology 09/21/22 Brea Quinn APRN UNCLAIMED PROPERTY MANAGER 64[address] [facility] [place] 072592 Assigned Surgical Provider 10/09/22 05/01/24 [place] [address] [address] [facility] 300 [place], [place] [address]1997 Assigned Musculoskeletal Provider 10/09/22 05/01/24 Alfonso Renteria MD 5775 [facility] 200 [place], [place] 565466 Assigned Neuroscience Provider 04/02/23 09/29/24 Radha Lomeli APRN UNCLAIMED PROPERTY MANAGER [address] 4221000 [place] 582535 Assigned Heart and Vascular Provider 05/28/23 11/29/24 Jelena David OD 3305 [facility] [place] [address] MD Ophthalmology 06/15/23 Pao Joseph, RN Personal Advocate & Liaison (PAL) Nurse 08/01/23 11/07/23 Esha Grimm PA-C [address] [place] [address]357683 Assigned PCP 07/16/23 Valery Veronica PA-C [address] [place] [address] Physician Postdoctoral Research Fellow Dermatology 09/19/23 Rey Tay MD [address] [place] [address] 804385 MD Gastroenterology 09/20/23 Rocky Zepeda DO [address] [place] [address] 547605 Physician Gastroenterology 09/20/23 Philip Dumont MD [address] [place] [address] 763685 Physician Ophthalmology 09/22/23 Meredith Carrera PA-C [address] [place] [address] 274185 Assigned Gastroenterology Provider 11/01/23 Neil Kent MD [address] [place] [address] [phone] Dermatology 11/02/23 [place] [address] [place] [address] Neurological Surgery 12/26/23 Audrey Waite PA-C 500 [place] [address] Physician Postdoctoral Research Fellow Dermatology 02/28/24 Valery Veronica PA-C 087458 [place], [place] [address] Physician Postdoctoral Research Fellow Dermatology 04/10/24 Herminia Hatch MD [address] [place] [address] [id number] Assigned Rheumatology Provider 07/02/24 Jelena David, SONJA [address] [place] [address] [place] [address] Ophthalmology 08/30/24 [place] [address] [place] [address] Assigned Neuroscience Provider 09/30/24 Maru Man PA-C [address] [place] [address] Physician Postdoctoral Research Fellow Dermatology 10/03/24 Maru Man PA-C [address] [place] [address] Physician Postdoctoral Research Fellow Dermatology 10/22/24 Jelena David, SONJA [address] [place] [address] [place] [address] Assigned Surgical Provider 10/31/24 Fabiano Correa, CROP OR LIVESTOCK TENANT FARMER [address] [place] [address] Assigned Heart and Vascular Provider 11/30/24 documented as of this encounter
--- OUTSIDE RECORDS SUMMARY | 2024-12-31 03:22 | XMS_ITS | Encounter Summary ---
Author Organization [place] Address [address] [place] [address] 15289 Care Team Providers Care Software Systems Analyst Name Role Phone Diana Desir [facility] Unavailable Rain Galaviz PA-C Unavailable Tavia Wyatt MD Unavailable Erica Farrell APRN PERFORATING MACHINE OPERATOR Unavailable Rich Barrett MD Unavailable [phone] Neil Kent MD Unavailable Diana Desir [facility] Unavailable [phone] Livan Sharif MD Unavailable Catherine Cm MD Unavailable + Valery Veronica PA-C Unavailable [phone] Brea Quinn OUTBOUND SALES ADVISOR PERFORATING MACHINE OPERATOR Unavailable Brea Quinn OUTBOUND SALES ADVISOR PERFORATING MACHINE OPERATOR Unavailable Jose Francisco Johnson MD Unavailable Sydnie Martinez RN Unavailable Unavailable Alfonso Renteria MD Unavailable [phone] Esha Grimm PA-C Primary Care Provider Radha Lomeli APRN PERFORATING MACHINE OPERATOR Unavailable Jelena David OD Unavailable [phone] Pao Joseph RN Unavailable Unavailable Esha Grimm Adam PA-C Unavailable [phone] Valery Veronica PA-C Unavailable Rey Tay [...] [facility] [place] [facility] Advice [address] [address] Pao Joseph, RN Social [...] Date Recorded PHQ-2 Score 0 06/20/2023 [facility] ional Health - Occupational Stress [...] exercise at this level? 30 min 03/10/2023 [place] Depression Scale Answer Date Recorded [place] Depression Score 5 01/14/2021 Last EPDS Self [...] CDT Legal Sex Female 4:13 AM FREIGHT SOLICITOR Gender Identity Female 03/02/2021 5:45 PM CDT Sexual Orientation Straight 02/28/2020 12 :51 AM CDT documented as of this encounter Plan of Treatment Upcoming Encounters Date Type Department Care Team (Latest Contact Info) Description 01/02/2025 1:10 PM CDT Ancillary Procedure [facility] [address] [place] [phone] Lauren Claudio PA-C [address] [place] [address] 01/17/2025 10:00 AM CDT Appointment [facility] Respiratory [address] [facility] [place] [phone] Lauren Claudio PA-C [address] [place] [address] 04/16/2025 11:00 AM CDT Virtual Visit [facility] Gastroenterology Clinic [address] 4th [place] [phone] Meredith Carrera PA-C [address] [place] [address] 258225 documented as of this encounter Visit Diagnoses [...] Total Score: 4 06/20/20 23 8:40 AM FREIGHT SOLICITOR documented as of this encounter Care Teams Software Systems Analyst Relationship Specialty Start Date End Date Esha Grimm PA-C [address] [place] [address] PCP - General Family Medicine 05/04/23 Diana Desir [facility]3 [place] [address] Pharmacist Pharmacist 04/17/21 Rain Galaviz PA-C [address] [place] [address] [address] [place] [address] Physician Supplier Diversity Director Dermatology 04/28/21 Tavia Wyatt MD [address] [place] [address] [address] [place] [facility] [address] Dermatology 07/14/21 Erica Farrell APRN PERFORATING MACHINE OPERATOR [address] [place] 789375 Nurse Practitioner Cardiovascular Disease 09/09/21 Rich Barrett MD [address] [place] 900175 Physician Ophthalmology 01/21/22 Neil Kent MD 500 [place] [address] Dermatology 02/24/22 [facility] [address] [place] [address] Assigned MTM Pharmacist 04/07/22 Livan Sharif MD [address] [place] [address] Cardiovascular Disease 05/14/22 Catherine Cm MD 6400 [facility] [address] [place] [address] Cardiovascular Disease 07/21/22 Valery Veronica PA-C 909 [place] [address] Physician Supplier Diversity Director Dermatology 07/21/22 Brea Quinn APRN PERFORATING MACHINE OPERATOR [address] [place] [address] Nurse Practitioner Dermatology 09/21/22 Brea Quinn APRN PERFORATING MACHINE OPERATOR [address] [place] [address] [place] [address] Assigned Surgical Provider 10/09/22 05/01/24 [place] [address] [place] [address] Assigned Musculoskeletal Provider 10/09/22 05/01/24 Sydnie Martinez RN Personal Advocate & Liaison (PAL) Family Medicine 03/28/23 07/31/23 Alfonso Renteria MD 5775 [facility] 200 [place], [place] 927826 Assigned Neuroscience Provider 04/02/23 09/29/24 Radha Lomeli APRN PERFORATING MACHINE OPERATOR [address] [id number] [place] 615615 Assigned Heart and Vascular Provider 05/28/23 11/29/24 Jelena David OD 3305 [facility] [place] [id number] MD Ophthalmology 06/15/23 Pao Joseph, RN Personal Advocate & Liaison (PAL) Nurse 08/01/23 11/07/23 Esha Grimm PA-C [address] [place] [address]457683 Assigned PCP 07/16/23 Valery Veronica PA-C [address] [place] [address] Physician Supplier Diversity Director Dermatology 09/19/23 Rey Tay MD [address] [place] [address] 432755 MD Gastroenterology 09/20/23 Rocky Zepeda DO [address] [place] [address] 685685 Physician Gastroenterology 09/20/23 Philip Dumont MD [address] [place] [address] 002515 Physician Ophthalmology 09/22/23 Meredith Carrera PA-C [address] [place] [address] 067185 Assigned Gastroenterology Provider 11/01/23 Neil Kent MD [address] [place] [address] 158890 Dermatology 11/02/23 [place] [address] [place] [address] Neurological Surgery 12/26/23 Audrey Waite PA-C 500 [place] [address] Physician Supplier Diversity Director Dermatology 02/28/24 Valery Veronica PA-C 514817 [place] [address] Physician Supplier Diversity Director Dermatology 04/10/24 Herminia Hatch MD [address] [place] [address] Assigned Rheumatology Provider 07/02/24 Jelena David, SONJA [address] [place] [address] [place] [address] Ophthalmology 08/30/24 [place] [address] [place] [address] Assigned Neuroscience Provider 09/30/24 Maru Man PA-C [address] [place] [address] Physician Supplier Diversity Director Dermatology 10/03/24 Maru Man PA-C [address] [place] [address] Physician Supplier Diversity Director Dermatology 10/22/24 Jelena David, SNOJA [address] [place] [address] [place] [address] Assigned Surgical Provider 10/31/24 Fabiano [place], RETAIL DEPARTMENT SUPERVISOR [address] [place] [address] Assigned Heart and Vascular Provider 11/30/24 documented as of this encounter
--- OUTSIDE RECORDS SUMMARY | 2024-12-31 03:22 | XMS_ITS | Encounter Summary ---
Author Organization [place] Address [address] [place] [address] 41793 Care Team Providers Care Hop Farmer Name Role Phone Diana Desir Stanislav [facility] Unavailable Rain Galaviz PA-C Unavailable [phone] Tavia Wyatt MD Unavailable Erica Farrell APRN CAMERA MAKER Unavailable Rich Barrett MD Unavailable [phone] Neil Kent MD Unavailable ThangKendrickDiana Stanislav [facility] Unavailable [phone] Livan Sharif MD Unavailable Catherine Cm MD Unavailable + Valery Veronica-C Unavailable Brea Quinn APRN CAMERA MAKER Unavailable [phone] Esha Grimm PA-C Primary Care Provider Radha Lomeli APRN CAMERA MAKER Unavailable Jelena David OD Unavailable Esha Grimm PA-C Unavailable [phone] Valery Veronica PA-C Unavailable Rey Tay MD Unavailable DuaneRocky Unavailable Philip Dumont MD Unavailable Meredith Carrera PA-C Unavailable [phone] Neil Kent MD Unavailable Juan Pablo Emmanuel MD Unavailable Audrey Waite PA-C Unavailable Valery Veronica PA-C Unavailable Herminia Hatch MD Unavailable Jelena David OD Unavailable [phone] Juan Pablo Emmanuel MD Unavailable Maru Man-C Unavailable Maru Man-C Unavailable Jelena David OD Unavailable Fabiano Correa NP Unavailable Encounter Details Date Type Department Care Team (Late st Contact Info) Description 10/11/2024 [facility] [place] [address] [address] Diana Desir, [facility] [address] [place], [place] [phone] Social History Tobacco Use Types Packs/Day Years [...] exercise at this level? 20 min 05/07/2024 [place] Depression Scale Answer Date Recorded [place] [...] CDT Legal Sex Female 4:13 AM LIFE INSURANCE SALES Gender Identity Female 03/02/2021 5:45 PM CDT Sexual Orientation Straight 02/28/2020 12 :51 AM CDT documented as of this encounter Plan of Treatment Upcoming Encounters Date Type Department Care Team (Latest Contact Info) Description 01/02/2025 1:10 PM CDT Ancillary Procedure [facility] [address] [place] [phone] Lauren Claudio PA-C [address] [place] [address] 01/17/2025 10:00 AM CDT Appointment [facility] Res[facility] [address] [place] [phone] Lauren Claudio PA-C [address] [place], [place] [phone] 04/16/2025 11:00 AM CDT Virtual Visit [facility] Gastroenterology Clinic [address] 4th [place] [phone] Meredith Carrera PA-C 909 [place] [address] documented as of this encounter Visit Diagnoses [...] documented as of this encounter Care Teams Hop Farmer Relationship Specialty Start Date End Date Esha Grimm PA-C [address] [place] [phone] PCP - General Family Medicine 05/04/23 Diana Desir, [facility] [address] [place] [address] Pharmacist Pharmacist 04/17/21 Rain Galaviz PA-C [address] [place] [address] [place] [address] Physician Frame Nailer Dermatology 04/28/21 Tavia Wyatt MD [address] [place] [address] DR RAZO [facility] [place] [phone] Dermatology 07/14/21 Erica Farrell APRN CAMERA MAKER [address] [place] 735975 Nurse Practitioner Cardiovascular Disease 09/09/21 Rich Barrett MD [address] [place] 047565 Physician Ophthalmology 01/21/22 Neil Kent MD [address] [place] [address] 950255 Dermatology 02/24/22 [facility] 30[address] [place], [place] 422856 Assigned [place] Pharmacist 04/07/22 Livan Sharif MD [address] [place] [address] Cardiovascular Disease 05/14/22 Catherine Cm MD [address] [place] 172125 Cardiovascular Disease 07/21/22 Valery Veronica, PA-C 909 [place], [place] 631375 Physician Frame Nailer Dermatology 07/21/22 Brea Quinn APRN CAMERA MAKER [address] [place] [address] 713045 Nurse Practitioner Dermatology 09/21/22 Radha Lomeli APRN CAMERA MAKER [address] [place], [place] 118775 Assigned Heart and Vascular Provider 05/28/23 11/29/24 Jelena David OD [address] [facility] [address] [place] [id number] MD Ophthalmology 06/15/23 Esha Grimm PA-C [address] [place] [phone] Assigned PCP 07/16/23 Valery Veronica PA-C [address] [place] [address] 165435 Physician Frame Nailer Dermatology 09/19/23 Rey Tay MD [address] [place] [address] 920585 MD Gastroenterology 09/20/23 Rocky Zepeda DO [address] [place] [address] 764615 Physician Gastroenterology 09/20/23 Philip Dumont MD [address] [place] [address] 056905 Physician Ophthalmology 09/22/23 Meredith Carrera PA-C [address] [place] [address] Assigned Gastroenterology Provider 11/01/23 Neil Kent MD [address] [place] [address] Dermatology 11/02/23 [place] [address] [place] [address] Neurological Surgery 12/26/23 Audrey Waite PA-C [address] [place] [address] Physician Frame Nailer Dermatology 02/28/24 Valery Veronica PA-C 625689 [address] [place] [address] Physician Frame Nailer Dermatology 04/10/24 Herminia Hatch MD [address] [place] [address] [id number] Assigned Rheumatology Provider 07/02/24 Jelena David OD [address] [place] [address] [place] [address] Ophthalmology 08/30/24 [place] [address] [place] [address] Assigned Neuroscience Provider 09/30/24 Maru Man PA-C [address] [place] [address] Physician Frame Nailer Dermatology 10/03/24 Maru Man PA-C [address] [place] [address] Physician Frame Nailer Dermatology 10/22/24 Jelena David OD [address] [facility] [place] [address] Assigned Surgical Provider 10/31/24 Fabiano [place] NP [address] [place] [address] Assigned Heart and Vascular Provider 11/30/24 documented as of this encounter
--- OUTSIDE RECORDS SUMMARY | 2024-12-31 03:22 | XMS_ITS | Encounter Summary ---
Author Organization [place] Address [address] [place] [address] 9[address] Care Team Providers Care Lan Engineer Name Role Phone Diana Desir [facility] Unavailable [phone] Rain Galaviz PA-C Unavailable Tavia Wyatt MD Unavailable [phone] Erica Farrell APRN INFORMATION DIRECTOR Unavailable Rich Barrett MD Unavailable [phone] Neil Kent MD Unavailable Diana Desir [facility] Unavailable Livan Sharif MD Unavailable Catherine Cm MD Unavailable + Valery Veronica PA-C Unavailable Brea Quinn BLASTING MINER INFORMATION DIRECTOR Unavailable Brea Quinn BLASTING MINER INFORMATION DIRECTOR Unavailable Jose Francisco Johnson MD Unavailable Alfonso Renteria MD Unavailable [phone] Esha Grimm PA-C Primary Care Provider Radha Lomeli APRN INFORMATION DIRECTOR Unavailable Jelena David OD Unavailable Pao Joseph RN Unavailable Unavailable Esha Grimm Adam PA-C Unavailable [phone] Valery Veronica PA-C Unavailable Rey Tay MD Unavailable Rocky Zepeda DO Unavailable Philip Dumont MD Unavailable Meredith Carrera PA-C Unavailable Neil Kent MD Unavailable Juan Pablo Emmanuel MD Unavailable Audrey Waite PA-C Unavailable Valery Veronica PA-C Unavailable [phone] Herminia Hatch MD Unavailable Jelena David OD Unavailable [phone] Juan Pablo Emmanuel MD Unavailable Maru Man PA-C Unavailable Maru Man PA-C Unavailable Jelena David OD Unavailable Fabiano Correa NP Unavailable [phone] Encounter Details Date Type Department Care Team (Late st Contact Info) Description 08/25/2023 [facility] Medical Advice [facility] [address] 4th [place] [address] Marija Polanco, RN Social History [...] exercise at this level? 30 min 03/10/2023 [place] Depression Scale Answer Date Recorded [place] Depression Score 5 01/14/2021 Last EPDS Self [...] CDT Legal Sex Female 4:13 AM RN EMERGENCY Gender Identity Female 03/02/2021 5:45 PM CDT Sexual Orientation Straight 02/28/2020 12 :51 AM CDT documented as of this encounter Plan of Treatment Upcoming Encounters Date Type Department Care Team (Latest Contact Info) Description 01/02/2025 1:10 PM CDT Ancillary Procedure [facility] [address] [place] [phone] Lauren Claudio PA-C [address] [place] [address] 01/17/2025 10:00 AM CDT Appointment [facility] Respiratory [address] [place] [phone] Lauren Claudio PA-C [address] [place] [address] 04/16/2025 11:00 AM CDT Virtual Visit [facility] [address] 4th [place] [address] Meredith Carrera PA-C [address] [place] [address] 532975 documented as of this encounter Visit Diagnoses [...] Score: 4 06/20/20 23 8:40 AM RN EMERGENCY documented as of this encounter Care Teams Lan Engineer Relationship Specialty Start Date End Date Esha Grimm PA-C [address] [place] [address] PCP - General Family Medicine 05/04/23 Diana Desir [facility] [address] [place] [address] 12747 Pharmacist Pharmacist 04/17/21 Rain Galaviz PA-C [address] [place] [address] [address] [place] [address] Physician Inspector Balance Bridge Dermatology 04/28/21 Tavia Wyatt MD [address] [place] [address] [address] [facility] [place] [place] [address] Dermatology 07/14/21 Erica Farrell APRN INFORMATION DIRECTOR [address] [place] 6[address] Nurse Practitioner Cardiovascular Disease 09/09/21 Rich Barrett MD [address] [place] [address] Physician Ophthalmology 01/21/22 Neil Kent MD 500 [place] [address] Dermatology 02/24/22 Diana Desir, [facility] 3033 [place] [address] Assigned MTM Pharmacist 04/07/22 Livan Sharif MD [address] [place] [address] Cardiovascular Disease 05/14/22 Catherine Cm MD [address] [place] [address] Cardiovascular Disease 07/21/22 Valery Veronica PA-C 909 [place] [address] Physician Inspector Balance Bridge Dermatology 07/21/22 Brea Quinn APRN INFORMATION DIRECTOR 500 [place] [address] Nurse Practitioner Dermatology 09/21/22 Brea Quinn APRN INFORMATION DIRECTOR [address] [place] [address] Assigned Surgical Provider 10/09/22 05/01/24 [place] [address] [facility] 300 [place] [address] Assigned Musculoskeletal Provider 10/09/22 05/01/24 Alfonso Renteria MD 5775 [facility] 200 [place], [place] 788826 Assigned Neuroscience Provider 04/02/23 09/29/24 Radha Lomeli APRN INFORMATION DIRECTOR 6405 [facility] [address] [place] [address] Assigned Heart and Vascular Provider 05/28/23 11/29/24 Jelena David OD [address] [facility] [place] [address] Ophthalmology 06/15/23 Pao Joseph, VJ Personal Advocate & Liaison (PAL) Nurse 08/01/23 11/07/23 Esha Grimm PA-C [address] [place] [phone] Assigned PCP 07/16/23 Valery Veronica PA-C [address] [place] [address] 631525 Physician Inspector Balance Bridge Dermatology 09/19/23 Rey Tay MD [address] [place] [address] 300095 MD Gastroenterology 09/20/23 Rocky Zepeda DO [address] [place] [address] 683205 Physician Gastroenterology 09/20/23 Philip Dumont MD [address] [place] [address] 841855 Physician Ophthalmology 09/22/23 Meredith Carrera PA-C [address] [place] [address] 729745 Assigned Gastroenterology Provider 11/01/23 Neil Kent MD [address] [place] [address] Dermatology 11/02/23 [place] [address] [place] [address] Neurological Surgery 12/26/23 Audrey Waite PA-C 500 [place] [address] Physician Inspector Balance Bridge Dermatology 02/28/24 Valery Veronica PA-C 844721 [address] [place] [place] [address] Physician Inspector Balance Bridge Dermatology 04/10/24 Herminia Hatch MD [address] [place] [address] Assigned Rheumatology Provider 07/02/24 Jelena David OD [address] [place] [address] [place] [address] Ophthalmology 08/30/24 [place] [address] [place] [address] Assigned Neuroscience Provider 09/30/24 Maru Man PA-C [address] [place] [address] Physician Inspector Balance Bridge Dermatology 10/03/24 Maru Man PA-C [address] [place] [address] Physician Inspector Balance Bridge Dermatology 10/22/24 Jelena David OD [address] [place] [address] [place] [address] Assigned Surgical Provider 10/31/24 Fabiano Correa NP 6405 [facility] [place] [address] Assigned Heart and Vascular Provider 11/30/24 documented as of this encounter
--- OUTSIDE RECORDS SUMMARY | 2024-12-31 03:22 | XMS_ITS | Encounter Summary ---
Author Organization [place] Address [address] [place] [address] 11547 Care Team Providers Care Wax Cutter Name Role Phone Diana Desir Stanislav [facility] Unavailable Rain Galaviz PA-C Unavailable [phone] Tavia Wyatt MD Unavailable Erica Farrell APRN CONSULTATIVE SALES ASSOCIATE Unavailable Rich Barrett MD Unavailable [phone] Neil Kent MD Unavailable ThangKendrickDiana Stanislav [facility] Unavailable [phone] Livan Sharif MD Unavailable Catherine Cm MD Unavailable + Valery Veronica-C Unavailable Brea Quinn APRN CONSULTATIVE SALES ASSOCIATE Unavailable Esha Grimm PA-C Primary Care Provider [phone] Radha Lomeli APRN CONSULTATIVE SALES ASSOCIATE Unavailable Jelena David OD Unavailable Esha Grimm PA-C Unavailable [phone] Valery Veronica PA-C Unavailable Rey Tay MD Unavailable DuaneRocky Unavailable Philip Dumont MD Unavailable [phone] PinoMeredith paez PA-C Unavailable [phone] Neil Kent MD Unavailable Juan Pablo Emmanuel MD Unavailable Audrey Waite PA-C Unavailable [phone] Valery Veronica PA-C Unavailable Herminia Hatch MD Unavailable Jelena David OD Unavailable Juan Pablo Emmanuel MD Unavailable [phone] Maru Man-C Unavailable [phone] Maru Man-C Unavailable Jelena David OD Unavailable Fabiano Correa NP Unavailable [phone] Encounter Details Date Type Department Care Team (Late st Contact Info) Description 10/10/2024 [facility] Medical Adv[facility] Heart [address] [address] Carley Myles RN Social History [...] Answer Date Recorded PHQ-2 Score 1 02/07/2024 [facility] - Occupational [...] exercise at this level? 20 min 05/07/2024 [place] Depression Scale Answer Date Recorded [place] Depression Score 5 01/14/2021 Last EPDS Self [...] PM CDT Legal Sex Female 4:13 AM PARAEDUCATOR Gender Identity Female 03/02/2021 5:45 PM CDT Sexual Orientation Straight 02/28/2020 12 :51 AM CDT documented as of this encounter Plan of Treatment Upcoming Encounters Date Type Department Care Team (Latest Contact Info) Description 01/02/2025 1:10 PM CDT Ancillary Procedure [facility] [address] [place] [phone] Lauren Claudio PABaldo [address] [place] [address] [phone] 01/17/2025 10:[address] [facility] Respiratory 5 [place] [address] Laurne Claudio PA-C [address] [place], [place] [phone] 04/16/2025 11:00 AM CDT Virtual Visit [facility] Gastroenterology Clinic [address] 4th [place] [phone] Meredith Carrera PA-C [address] [place] [address] 700615 documented as of this encounter Visit Diagnoses [...] as of this encounter Care Teams Wax Cutter Relationship Specialty Start Date End Date Esha Grimm PA-C [address] [place] [phone] PCP - General Family Medicine 05/04/23 Diana Desir, [facility] [place] [address] Pharmacist Pharmacist 04/17/21 Rain Galaviz PA-C [address] [place] [address] [address] [place] [address] Physician Power Station Operator Dermatology 04/28/21 Tavia Wyatt MD [address] [place] [address] [address] [place] [address] Dermatology 07/14/21 Erica Farrell APRN CONSULTATIVE SALES ASSOCIATE [address] 301785 Nurse Practitioner Cardiovascular Disease 09/09/21 Rich Barrett MD [address] 629055 Physician Ophthalmology 01/21/22 Neil Kent MD 500 [place], [place] 649605 Dermatology 02/24/22 [facility] [address] [place] [address] Assigned MTM Pharmacist 04/07/22 Livan Sharif MD [address] [place] [address] Cardiovascular Disease 05/14/22 Catherine Cm MD [address] [address] Cardiovascular Disease 07/21/22 Valery Veronica, PA-C [address] [place] [address] 780505 Physician Power Station Operator Dermatology 07/21/22 Brea Quinn APRN CONSULTATIVE SALES ASSOCIATE [address] [place] [address] [phone] Nurse Practitioner Dermatology 09/21/22 Radha Lomeli APRN CONSULTATIVE SALES ASSOCIATE 6405 [facility] [address] [place] [address] Assigned Heart and Vascular Provider 05/28/23 11/29/24 Jelena David OD [address] [facility] [address] [place] [phone] MD Ophthalmology 06/15/23 Esha Grimm PA-C [address] [place] [phone] Assigned PCP 07/16/23 Valery Veronica PA-C [address] [place] [address] 534505 Physician Power Station Operator Dermatology 09/19/23 Rey Tay MD [address] [place] [address] 267655 Gastroenterology 09/20/23 Rocky Zepeda DO [address] [place] [address] 231565 Physician Gastroenterology 09/20/23 Philip Dumont MD [address] [place] [address] 283635 Physician Ophthalmology 09/22/23 Meredith Carrera PA-C [address] [place] [address] 340215 Assigned Gastroenterology Provider 11/01/23 Neil Kent MD [address] [place] [address] Dermatology 11/02/23 [place] [address] [place] [address] Neurological Surgery 12/26/23 Audrey Waite PA-C 500 [place] [address] Physician Power Station Operator Dermatology 02/28/24 Valery Veronica PA-C [address] [place] [address] Physician Power Station Operator Dermatology 04/10/24 Herminia Hatch MD [address] [place] [address] [phone] Assigned Rheumatology Provider 07/02/24 Jelena David OD [address] [place] [address] [place] [address] Ophthalmology 08/30/24 [place] [address] [place] [address] Assigned Neuroscience Provider 09/30/24 Maru Man PA-C [address] [place] [address] Physician Power Station Operator Dermatology 10/03/24 Maru Man PA-C [address] [place] [place] [address] Physician Power Station Operator Dermatology 10/22/24 Jelena David OD [address] [facility] [place] [address] Assigned Surgical Provider 10/31/24 Fabiano Correa NP [address] [place] [address] Assigned Heart and Vascular Provider 11/30/24 documented as of this encounter
--- OUTSIDE RECORDS SUMMARY | 2024-12-31 03:22 | XMS_ITS | Encounter Summary ---
Author Organization [place] Address [address] [place] [address] Care Team Providers Care Grader Meat Name Role Phone Diana Desir [facility] Unavailable Rain Galaviz PA-C Unavailable [phone] Tavia Wyatt MD Unavailable [phone] Erica Farrell APRN VIDEO GAME TECHNICIAN Unavailable Rich Barrett MD Unavailable [phone] Neil Kent MD Unavailable Diana Desir [facility] Unavailable Livan Sharif MD Unavailable Catherine Cm MD Unavailable + Valery Veronica PA-C Unavailable [phone] Brea Quinn SHIPPING CLERK/ADMIN VIDEO GAME TECHNICIAN Unavailable [phone] Brea Quinn SHIPPING CLERK/ADMIN VIDEO GAME TECHNICIAN Unavailable Jose Francisco Johnson MD Unavailable Alfonso Renteria MD Unavailable [phone] Esha Grimm PA-C Primary Care Provider Radha Lomeli APRN VIDEO GAME TECHNICIAN Unavailable Jelena David OD Unavailable [phone] Pao Joseph RN Unavailable Unavailable AlfaJesusEsha M PA-C Unavailable [phone] Valery Veronica PA-C Unavailable Rey Tay [...] Team (Late st Contact Info) Description 09/08/2023 [facility] [place] 9[address]89 [facility] 4th [place] [address] Mary Kelsey Social History Tobacco [...] 0 06/20/2023 [facility] - Occupational Stress Questionnaire Answer [...] exercise at this level? 30 min 03/10/2023 [place] Depression Scale Answer Date Recorded [place] Depression Score 5 01/14/2021 Last EPDS Self [...] PM CDT Legal Sex Female 4:13 AM TOP EDGE BEVELER Gender Identity Female 03/02/2021 5:45 PM CDT Sexual Orientation Straight 02/28/2020 12 :51 AM CDT documented as of this encounter Plan of Treatment Upcoming Encounters Date Type Department Care Team (Latest Contact Info) Description 01/02/2025 1:10 PM CDT Ancillary Procedure [facility] [address] [place] [phone] Lauren Claudio PA-C [address] [place] [address] 01/17/2025 10:00 AM CDT Appointment [facility] Respiratory [address] [place] [phone] Lauren Claudio PA-C [address] [place] [address] 04/16/2025 11:00 AM CDT Virtual Visit [facility] Gastroenterology Clinic [address] 4th [place] [address] Meredith Carrera PA-C [address] [place] [address] 919995 documented as of this encounter Visit Diagnoses [...] Total Score: 4 06/20/20 23 8:40 AM TOP EDGE BEVELER documented as of this encounter Care Teams Grader Meat Relationship Specialty Start Date End Date Esha Grimm PA-C [address] [place] [address] PCP - General Family Medicine 05/04/23 Dinaa Desir [facility] 3033 [place] [address] Pharmacist Pharmacist 04/17/21 Rain Galaviz PA-C [address] [place] [address] [address] [place] [address] Physician Labor Crew Supervisor Dermatology 04/28/21 Tavia Wyatt MD [address] [place] [address] [address] [facility] [place] [address] Dermatology 07/14/21 Erica Farrell APRN VIDEO GAME TECHNICIAN [address] [place] 530405 Nurse Practitioner Cardiovascular Disease 09/09/21 Rich Barrett MD [address] [place] 765755 Physician Ophthalmology 01/21/22 Neil Kent MD 500 [place] [address] Dermatology 02/24/22 [facility] 3033 [place] [address] Assigned MTM Pharmacist 04/07/22 Livan Sharif MD [address] [place] [address] Cardiovascular Disease 05/14/22 Catherine Cm MD [address] [place] [address] Cardiovascular Disease 07/21/22 Valery Veronica PA-C 909 [place] [address] Physician Labor Crew Supervisor Dermatology 07/21/22 Brea Quinn APRN VIDEO GAME TECHNICIAN 500 [place] [address] Nurse Practitioner Dermatology 09/21/22 Brea Quinn APRN VIDEO GAME TECHNICIAN 6401 [place] [address] Assigned Surgical Provider 10/09/22 05/01/24 [place] [address] [facility] 300 [place] [address] Assigned Musculoskeletal Provider 10/09/22 05/01/24 Alfonso Renteria MD 5775 [facility] 200 [place], [place] 679306 Assigned Neuroscience Provider 04/02/23 09/29/24 Radha Lomeli APRN VIDEO GAME TECHNICIAN 6405 [facility] [address] [place] [address] Assigned Heart and Vascular Provider 05/28/23 11/29/24 Jelena David OD [address] [facility] [place] [address] Ophthalmology 06/15/23 Pao Joseph, RN Personal Advocate & Liaison (PAL) Nurse 08/01/23 11/07/23 Esha Grimm PA-C [address] [place] [phone] Assigned PCP 07/16/23 Valery Veronica PA-C [address] [place] [address] 278835 Physician Labor Crew Supervisor Dermatology 09/19/23 Rey Tay MD [address] [place] [address] 494835 MD Gastroenterology 09/20/23 Rocky Zepeda DO [address] [place] [address] 605685 Physician Gastroenterology 09/20/23 Philip Dumont MD [address] [place] [address] 197425 Physician Ophthalmology 09/22/23 Meredith Carrera PA-C [address] [place] [address] 855555 Assigned Gastroenterology Provider 11/01/23 Neil Kent MD [address] [place] [address] Dermatology 11/02/23 [place] [address] [address] Neurological Surgery 12/26/23 Audrey Waite PA-C 500 [place] [address] Physician Labor Crew Supervisor Dermatology 02/28/24 Valery Veronica PA-C [address] [place] [address] Physician Labor Crew Supervisor Dermatology 04/10/24 Herminia Hatch MD [address] [place] [address] Assigned Rheumatology Provider 07/02/24 Jelena David OD [address] [place] [address] [place] [address] Ophthalmology 08/30/24 [place] [address] [address] Assigned Neuroscience Provider 09/30/24 Maru Man PA-C [address] [place] [address] Physician Labor Crew Supervisor Dermatology 10/03/24 Maru Man PA-C [address] [place] [address] Physician Labor Crew Supervisor Dermatology 10/22/24 Jelena David OD [address] [place] [address] [place] [address] Assigned Surgical Provider 10/31/24 Fabiano Correa NP 6405 [facility] [place] [address] Assigned Heart and Vascular Provider 11/30/24 documented as of this encounter
--- OUTSIDE RECORDS SUMMARY | 2024-12-31 03:22 | XMS_ITS | Encounter Summary ---
Author Organization [place] Address [address] [place] [address] Care Team Providers Care Cement Storage Worker Name Role Phone Diana Desir [facility] Unavailable Rain Galaviz PA-C Unavailable [phone] Tavia Wyatt MD Unavailable [phone] Erica Farrell APRN CONTINUITY WRITER Unavailable Rich Barrett MD Unavailable [phone] Neil Kent MD Unavailable Diana Desir [facility] Unavailable Livan Sharif MD Unavailable Catherine Cm MD Unavailable + Valery Veronica PA-C Unavailable [phone] Brea Quinn APERTURE MASK ETCHER CONTINUITY WRITER Unavailable Brea Quinn APERTURE MASK ETCHER CONTINUITY WRITER Unavailable Jose Francisco Johnson MD Unavailable Alfonso Renteria MD Unavailable [phone] Esha Grimm PA-C Primary Care Provider [phone] Radha Lomeli APRN CONTINUITY WRITER Unavailable Jelena David OD Unavailable [phone] Pao Joseph RN Unavailable Unavailable Esha Grimm PA-C Unavailable [phone] Valery Veronica PA-C Unavailable Rey Tay MD Unavailable Rocky Zepeda DO Unavailable Philip Dumont MD Unavailable Meredith Carrera PA-C Unavailable [phone] Neil Kent MD Unavailable Juan Pablo Emmanuel MD Unavailable Audery Waite PA-C Unavailable Valery Veronica PA-C Unavailable Herminia Hatch MD Unavailable Jelena David OD Unavailable Juan Pablo Emmanuel MD Unavailable Maru Man PA-C Unavailable Maru Man PA-C Unavailable Jelena David OD Unavailable Fabiano Correa NP Unavailable Encounter Details Date Type Department Care Team (Late st Contact Info) Description 08/10/2023 [facility] [place] [place] [facility] [address] [place] [address] Esha Grimm PA-C [address] [place] [address] Social History Tobacco Use Types [...] you attend [facility] or protestant services? 1 to 4 times [...] Score 0 06/20/2023 [facility] - Occupational [...] at this level? 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 Patient did call to see if E-Visit would be addressed today. No immediate concern at this time. Advised UC if needed sooner. Asiya Reddy, RN RITY SYSTEMS SALES REPRESENTATIVE documented in this encounter Plan of Treatment Upcoming Encounters Date Type Department Care Team (Latest Contact Info) Description 01/02/2025 1:10 PM CDT Ancillary Procedure [address] [address] Lauren Claudio PA-C [address] [place] [address] 01/17/2025 10:00 AM CDT Appointment [place] 0[address] [place] [address] Lauren Claudio PA-C [address] [place] [address] 04/16/2025 11:00 AM CDT Virtual Visit [facility] [address] [place] [phone] Meredith Carrera PA-C [address] [place] [address] documented as of this encounter Visit Diagnoses Not on filedocumented in this encounter Additional Health Concerns Infection Onset Date Last Indicated Resolved Time Rule Out COVID-19 12/26/2023 12/26/2023 12/26/2023 9:50 AM CDT Rule Out COVID-19 04/09/2024 04/09/2024 04/10/2024 6:48 PM CDT Rule Out COVID-19 10/04/2024 10/04/2024 10/05/2024 9:42 AM CDT Rule Out COVID-19 11/20/2024 11/20/2024 11/21/2024 11:23 AM CDT Rule Out COVID-19 11/21/2024 11/21/202411/22/2024 12:10 AM CDT Influenza 11/21/2024 11/21/2024 11/28/2024 7:42 PM CDT Assessment Noted Time PHQ-9 Depression Total Score: 4 06/20/20 23 8:40 AM SECURITY SYSTEMS SALES REPRESENTATIVE documented as of this encounter Care Teams Cement Storage Worker Relationship Specialty Start Date End Date Esha Grimm PA-C [address] [place] [address] PCP - General Family Medicine 05/04/23 Diana Desir, [facility] [address] [place] [address] Pharmacist Pharmacist 04/17/21 Rain Galaviz PA-C [address] [place] [address] [address] [facility] [place] [address] Physician Gold Layer Dermatology 04/28/21 Tavia Wyatt MD [address] [place] [address] [address] [facility] [place] [address] Dermatology 07/14/21 Erica Farrell APRN CONTINUITY WRITER [address] [place] [address] Nurse Practitioner Cardiovascular Disease 09/09/21 Rich Barrett MD [address] [place] 610335 Physician Ophthalmology 01/21/22 Neil Kent MD 500 [place] [address] Dermatology 02/24/22 Diana Desir, [facility] [address] [place], [place] 994186 Assigned MTM Pharmacist 04/07/22 Livan Sharif MD [address] [facility] [address] [place], [place] [address] Cardiovascular Disease 05/14/22 Catherine Cm MD [address] [facility] [address] [place], [place] 3077[address] Cardiovascular Disease 07/21/22 Valery Veronica, PA-C [address] [place] [address] 626525 Physician Gold Layer Dermatology 07/21/22 Brea Quinn APRN CONTINUITY WRITER [address] [place], [place] 409405 Nurse Practitioner Dermatology 09/21/22 Brea Quinn APRN CONTINUITY WRITER 64[address] [place], [place] 619102 Assigned Surgical Provider 10/09/22 05/01/24 [place] [address] [address] [facility] 300 [place], [place] 403407 Assigned Musculoskeletal Provider 10/09/22 05/01/24 Alfonso Renteria MD [address] [facility] [address] [place], [place] 449666 Assigned Neuroscience Provider 04/02/23 09/29/24 Radha Lomeli APRN CONTINUITY WRITER [address] [facility] [address] [place], [place] 206325 Assigned Heart and Vascular Provider 05/28/23 11/29/24 Jelena David OD [address] [facility] [place] [address] MD Ophthalmology 06/15/23 Pao Joseph, VJ Personal Advocate & Liaison (PAL) Nurse 08/01/23 11/07/23 Esha Grimm PA-C [address] [place] [phone] Assigned PCP 07/16/23 Valery Veronica PA-C [address] [place] [address] 828765 Physician Gold Layer Dermatology 09/19/23 Rey Tay MD [address] [place] [address] 207425 MD Gastroenterology 09/20/23 Rocky Zepeda DO [address] [place] [address] 150585 Physician Gastroenterology 09/20/23 Philip Dumont MD [address] [place] [address] 438635 Physician Ophthalmology 09/22/23 Meredith Carrera PA-C [address] [place] [address] 038175 Assigned Gastroenterology Provider 11/01/23 Neil Kent MD [address] [place] [address] Dermatology 11/02/23 [place] [address] [place] [address] Neurological Surgery 12/26/23 Audrey Waite PA-C 500 [place] [address] Physician Gold Layer Dermatology 02/28/24 Valery Veronica PA-C 507494 [place] [address] Physician Gold Layer Dermatology 04/10/24 Herminia Hatch MD [address] [place] [address] [phone] Assigned Rheumatology Provider 07/02/24 Jelena David OD [address] [place] [address] [place] [address] Ophthalmology 08/30/24 [place] [address] [place] [address] Assigned Neuroscience Provider 09/30/24 Maru Man PA-C [address] [place] [address] Physician Gold Layer Dermatology 10/03/24 Maru Man PA-C [address] [place] [address] Physician Gold Layer Dermatology 10/22/24 Jelena David OD [address] [facility] [place] [address] Assigned Surgical Provider 10/31/24 Fabiano Correa NP [address] [place] [address] Assigned Heart and Vascular Provider 11/30/24 documented as of this encounter
--- OUTSIDE RECORDS SUMMARY | 2024-12-31 03:22 | XMS_ITS | Encounter Summary ---
Author Organization [place] Address [address] [place] [address] Care Team Providers Care Skiver Blockers Name Role Phone Diana Desir [facility] Unavailable Rain GalavizC Unavailable Tavia Wyatt MD Unavailable Erica Farrell APRN PREDICTIVE MAINTENANCE TECHNICIAN Unavailable Rich Barrett MD Unavailable [phone] Neil Kent MD Unavailable DesirKendrickDiana Stanislav [facility] Unavailable [phone] Livan Sharif MD Unavailable Catherine Cm MD Unavailable + Valery Veronica-C Unavailable Brea Quinn MANAGER FINE DINING PREDICTIVE MAINTENANCE TECHNICIAN Unavailable [phone] Alfonso Renteria MD Unavailable [phone] Esha GrimmC Primary Care Provider [phone] Radha Lomeli APRN PREDICTIVE MAINTENANCE TECHNICIAN Unavailable Jelena David OD Unavailable [place], Esha M PA-C Unavailable Valery Veronica PA-C Unavailable [phone] Rey Tay MD Unavailable Rocky Zepeda DO Unavailable Philip Dumont MD Unavailable [phone] Meredith Carrera-C Unavailable Neil Kent MD Unavailable Juan Pablo Emmanuel MD Unavailable Audrey Waite PA-C Unavailable Valery Veronica PA-C Unavailable Herminia Hatch MD Unavailable Jelena David OD Unavailable Juan Pablo Emmanuel MD Unavailable [phone] Maru Man PA-C Unavailable Maru Man PA-C Unavailable Jelena David OD Unavailable [phone] Fabiano Correa NP Unavailable Encounter Details Date Type Department Care Team (Late st Contact Info) Description 09/07/2024 [facility] Medical Advice [facility] [address] [place] [address] Meredith Carrera PA-C [address] [place] [address] Social History Tobacco Use Types Packs/Day [...] Answer Date Recorded PHQ-2 Score 1 02/07/2024 [facility] exercise at this level? 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 Gender Identity Female 03/02/2021 5:45 PM CDT Sexual Orientation Straight 02/28/2020 12 :51 AM CDT documented as of this encounter Plan of Treatment Upcoming Encounters Date Type Department Care Team (Latest Contact Info) Description 01/02/2025 1:10 PM CDT Ancillary Procedure [facility] [address] [place] [phone] Lauren Claudio PA-C [address] [place] [address] 01/17/2025 10:00 AM CDT Appointment [facility] [address] [place] [phone] Lauren Claudio PA-C [address] [place], [place] [phone] 04/16/2025 11:00 AM CDT Virtual Visit [facility] [address] 4th [place] [phone] Meredith Carrera PA-C [address] [place] [address] 178965 documented as of this encounter Visit Diagnoses [...] documented as of this encounter Care Teams Skiver Blockers Relationship Specialty Start Date End Date Esha Grimm PA-C [address] [place] [address] PCP - General Family Medicine 05/04/23 Diana Desir, [facility] [address] [place] [address] Pharmacist Pharmacist 04/17/21 Rain Galaviz PA-C [address] [place] [address] DR [address] [place] [address] Physician Dishroom Attendant Dermatology 04/28/21 Tavia Wyatt MD [address] [place] [address] [address] [place] [address] Dermatology 07/14/21 Erica Farrell APRN PREDICTIVE MAINTENANCE TECHNICIAN [address] [place] 12[address]45 Nurse Practitioner Cardiovascular Disease 09/09/21 Rich Barrett MD [address] [place] 209[address] Physician Ophthalmology 01/21/22 Neil Kent MD 500 [place], [place] 655515 Dermatology 02/24/22 Diana Desir, [facility] 3033 [place] [address] Assigned [place] Pharmacist 04/07/22 Livan Sharif MD [address] [address] [place] 135905 Cardiovascular Disease 05/14/22 Catherine Cm MD [address] [address] [place] [address] Cardiovascular Disease 07/21/22 Valery Veronica, [place] [address] [place] [address] Physician Dishroom Attendant Dermatology 07/21/22 Brea Quinn APRN PREDICTIVE MAINTENANCE TECHNICIAN [address] [place] [address] Nurse Practitioner Dermatology 09/21/22 Alfonso Renteria MD [address] [facility] [address] 200 [place], [place] 997396 Assigned Neuroscience Provider 04/02/23 09/29/24 Radha Lomeli APRN PREDICTIVE MAINTENANCE TECHNICIAN [address] [facility] [address] [place], [place] 803925 Assigned Heart and Vascular Provider 05/28/23 11/29/24 Jelena David OD [address] [facility] [place] [address] Ophthalmology 06/15/23 Esha Grimm PA-C [address] [place] [address] Assigned PCP 07/16/23 Valery Veronica PA-C [address] [place] [address] 501865 Physician Dishroom Attendant Dermatology 09/19/23 Rey Tay MD 9 [place] [address] Gastroenterology 09/20/23 Rocky Zepeda DO [address] [place] [address] Physician Gastroenterology 09/20/23 Philip Dumont MD [address] [place] [address] Physician Ophthalmology 09/22/23 Meredith Carrera PA-C [address] [place] [address] Assigned Gastroenterology Provider 11/01/23 Neil Kent MD [address] [place] [address] MD Dermatology 11/02/23 [place] [address] [place] [address] Neurological Surgery 12/26/23 Audrey Waite PA-C [address] [place] [address] Physician Dishroom Attendant Dermatology 02/28/24 Valery Veronica PA-C 533621 [place] [address] Physician Dishroom Attendant Dermatology 04/10/24 Herminia Hatch MD [facility]5 [place], [place] 61345125 Assigned Rheumatology Provider 07/02/24 Jelena David OD [address] [facility] [place] [address] Ophthalmology 08/30/24 [place] [address] [address] [place] [address] Assigned Neuroscience Provider 09/30/24 Maru Man PA-C [address] [place] [address] Physician Dishroom Attendant Dermatology 10/03/24 Maru Man PA-C [address] [place] [address] Physician Dishroom Attendant Dermatology 10/22/24 Jelena David OD [address] [facility] [place] [address] Assigned Surgical Provider 10/31/24 Fabiano Correa NP [address] [place] [address] Assigned Heart and Vascular Provider 11/30/24 documented as of this encounter
--- OUTSIDE RECORDS SUMMARY | 2024-12-31 03:22 | XMS_ITS | Encounter Summary ---
Author Organization [place] Address [address] [place] [address] Care Team Providers Care Director Of Assessment Name Role Phone Diana Desir [facility] Unavailable [phone] Rain Galaviz PA-C Unavailable Tavia Wyatt MD Unavailable [phone] Erica Farrell APRN INSPECTOR PURCHASED PARTS Unavailable Rich Barrett MD Unavailable [phone] Neil Kent MD Unavailable Diana Desir [facility] Unavailable Livan Sharif MD Unavailable Catherine Cm MD Unavailable + Valery Veronica PA-C Unavailable Brea Quinn COLOR PRINT INSPECTOR INSPECTOR PURCHASED PARTS Unavailable Brea Quinn COLOR PRINT INSPECTOR INSPECTOR PURCHASED PARTS Unavailable Jose Francisco Johnson MD Unavailable Alfonso Renteria MD Unavailable [phone] Esha Grimm PA-C Primary Care Provider [phone] Radha Lomeli APRN INSPECTOR PURCHASED PARTS Unavailable Jelena David OD Unavailable Pao Joseph RN Unavailable Unavailable Esha Grimm Adam PA-C Unavailable [phone] Valery Veronica PA-C Unavailable Rey Tay MD Unavailable Rocky Zepeda DO Unavailable Philip Dumont MD Unavailable Meredith Carrera PA-C Unavailable [phone] Neil Kent MD Unavailable Juan Pablo Emmanuel MD Unavailable Audrey Waite PA-C Unavailable Valery Veronica PA-C Unavailable Herminia Hatch MD Unavailable Jelena David OD Unavailable Jua nPablo Emmanuel MD Unavailable [phone] Maru Man PA-C Unavailable Maru Man PA-C Unavailable Jelena David OD Unavailable Fabiano Correa NP Unavailable [phone] Encounter Details Date Type Department Care Team (Late st Contact Info) Description 08/11/2023 [facility] Advice [address] [address] Pao Joseph, RN Social History [...] Score 0 06/20/2023 [facility] - Occupational Stress [...] at this level? 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 Gender Identity Female 03/02/2021 5:45 PM CDT Sexual Orientation Straight 02/28/2020 12 :51 AM CDT documented as of this encounter Plan of Treatment Upcoming Encounters Date Type Department Care Team (Latest Contact Info) Description 01/02/2025 1:10 PM CDT Ancillary Procedure [facility] [address] [place] [phone] Lauren Claudio PA-C [address] [place] [address] 01/17/2025 10:00 AM CDT Appointment [facility] Res[facility] [address] [place] [phone] Lauren Claudio PA-C [address] [place] [address] 04/16/2025 11:00 AM CDT Virtual Visit [facility] [address] 4th [place] [phone] Meredith Carrera PA-C [address] [place] [address] 672055 documented as of this encounter Visit Diagnoses [...] Score: 4 06/20/20 23 8:40 AM GLOBAL CONSUMER SECTOR VICE PRESIDENT documented as of this encounter Care Teams Director Of Assessment Relationship Specialty Start Date End Date Esha Grimm PA-C [address] [place] [phone] PCP - General Family Medicine 05/04/23 Diana Desir, [facility] [address] [place] [address] Pharmacist Pharmacist 04/17/21 Rain Galaviz PA-C [address] [place] [address] [address] [place] [address] Physician Electrical Equipment Technician Dermatology 04/28/21 Tavia Wyatt MD [address] [place] [address] [address] [place] [address] Dermatology 07/14/21 Erica Farrell APRN INSPECTOR PURCHASED PARTS [address] [place] [address] Nurse Practitioner Cardiovascular Disease 09/09/21 Rich Barrett MD [address] [place] [address] Physician Ophthalmology 01/21/22 Neil Kent MD 500 [place] [address] Dermatology 02/24/22 [facility] [address] [place] [address] Assigned MTM Pharmacist 04/07/22 Livan Sharif MD [address] [address] [place] [address] Cardiovascular Disease 05/14/22 Catherine Cm MD [address] [place] [address] Cardiovascular Disease 07/21/22 Valery Veronica PA-C 909 [place] [address] Physician Electrical Equipment Technician Dermatology 07/21/22 Brea Quinn APRN INSPECTOR PURCHASED PARTS 500 [place] [address] Nurse Practitioner Dermatology 09/21/22 Brea Quinn APRN INSPECTOR PURCHASED PARTS 6401 [place] [address] Assigned Surgical Provider 10/09/22 05/01/24 [place] [address] [address] [facility] 300 [place] [address] Assigned Musculoskeletal Provider 10/09/22 05/01/24 Alfonso Renteria MD 5775 [facility] 200 [place] [address] Assigned Neuroscience Provider 04/02/23 09/29/24 Radha Lomeli APRN INSPECTOR PURCHASED PARTS [address] [facility] [address] [place] [address] Assigned Heart and Vascular Provider 05/28/23 11/29/24 Jelena David OD [address] [place] [address] Ophthalmology 06/15/23 Pao Joseph, VJ Personal Advocate & Liaison (PAL) Nurse 08/01/23 11/07/23 Esha Grimm PA-C [address] [place] [address] Assigned PCP 07/16/23 Valery Veronica PA-C [address] [place] [address] 002415 Physician Electrical Equipment Technician Dermatology 09/19/23 Rey Tay MD [address] [place] [address] 505155 MD Gastroenterology 09/20/23 Rocky Zepeda DO [address] [place] [address] 015225 Physician Gastroenterology 09/20/23 Philip Dumont MD [address] [place] [address] 674915 Physician Ophthalmology 09/22/23 Meredith Carrera PA-C [address] [place] [address] 992015 Assigned Gastroenterology Provider 11/01/23 Neil Kent MD [address] [place] [address] Dermatology 11/02/23 [place] [address] [place] [address] Neurological Surgery 12/26/23 Audrey Waite PA-C 500 [place] [address] Physician Electrical Equipment Technician Dermatology 02/28/24 Valery Veronica PA-C [id number] 99 [place] [address] Physician Electrical Equipment Technician Dermatology 04/10/24 Herminia Hatch MD [address] [place] [address] Assigned Rheumatology Provider 07/02/24 [place] [address] [place] [address] [place] [address] Ophthalmology 08/30/24 [place] [address] [place] [address] Assigned Neuroscience Provider 09/30/24 Maru Man PA-C [address] [place] [address] Physician Electrical Equipment Technician Dermatology 10/03/24 Maru Man PA-C [address] [place] [address] Physician Electrical Equipment Technician Dermatology 10/22/24 Jelena David OD [address] [place] [address] [place] [address] Assigned Surgical Provider 10/31/24 Fabiano Correa NP [address] [place] [address] Assigned Heart and Vascular Provider 11/30/24 documented as of this encounter
--- OUTSIDE RECORDS SUMMARY | 2024-12-31 03:22 | XMS_ITS | Encounter Summary ---
Author Organization [facility] Address [address] [place] [address] Care Team Providers Care Cra Name Role Phone Diana Desir [facility] Unavailable Rain Galaviz PA-C Unavailable Tavia Wyatt MD Unavailable [phone] Erica Farrell APRN PLATER APPRENTICE Unavailable Rich Barrett MD Unavailable [phone] Neil Kent MD Unavailable Diana Desir [facility] Unavailable Livan Sharif MD Unavailable Catherine Cm MD Unavailable + Valery Veronica PA-C Unavailable [phone] Brea Quinn WIC SITE COORDINATOR PLATER APPRENTICE Unavailable Brea Quinn WIC SITE COORDINATOR PLATER APPRENTICE Unavailable Jose Francisco Johnson MD Unavailable Alfonso Renteria MD Unavailable [phone] Esha Grimm PA-C Primary Care Provider [phone] Radha Lomeli APRN PLATER APPRENTICE Unavailable Jelena David OD Unavailable Pao Joseph RN Unavailable Unavailable Esha Grimm Adam PA-C Unavailable [phone] Valery Veronica PA-C Unavailable Rey Tay MD Unavailable Rocky Zepeda DO Unavailable Philip Dumont MD Unavailable Meredith Carrera PA-C Unavailable Neil Kent MD Unavailable Juan Pablo Emmanuel MD Unavailable Audrey Waite PA-C Unavailable Valery Veronica PA-C Unavailable [phone] Herminia Hatch MD Unavailable Jelena David OD Unavailable [phone] Juan Pablo Emmanuel MD Unavailable Maru Man PA-C Unavailable Maru Man PA-C Unavailable Jelena David OD Unavailable Fabiano Correa NP Unavailable [phone] Encounter Details Date Type Department Care Team (Late st Contact Info) Description 08/25/2023 [facility] [place] [facility] [address] [place] [address] Marija Polanco, RN Social History [...] CDT Legal Sex Female 4:13 AM COTTON FACTOR Gender Identity Female 03/02/2021 5:45 PM CDT Sexual Orientation Straight 02/28/2020 12 :51 AM CDT documented as of this encounter Plan of Treatment Upcoming Encounters Date Type Department Care Team (Latest Contact Info) Description 01/02/2025 1:10 PM CDT Ancillary Procedure [facility] [address] [place] [phone] Lauren Claudio PA-C [address] [place] [address] 01/17/2025 10:00 AM CDT Appointment [facility] Respiratory [address] [place] [phone] Lauren Claudio PA-C [address] [place] [address] 04/16/2025 11:00 AM CDT Virtual Visit [facility] [address] 4th [place] [phone] Meredith Carrera PA-C [address] [place] [address] 383435 documented as of this encounter Visit Diagnoses [...] Score: 4 06/20/20 23 8:40 AM COTTON FACTOR documented as of this encounter Care Teams Cra Relationship Specialty Start Date End Date Esha Grimm PA-C [address] [place] [address] PCP - General Family Medicine 05/04/23 Diana Desir [facility] [address] [place] [address] Pharmacist Pharmacist 04/17/21 Rain Galaviz PA-C [address] [place] [address] [address] [place] [address] Physician Employment Case Manager Dermatology 04/28/21 Tavia Wyatt MD [address] [place] [address] [address] [facility] [address] Dermatology 07/14/21 Erica Farrell APRN PLATER APPRENTICE [address] [place] 8[address] Nurse Practitioner Cardiovascular Disease 09/09/21 Rich Barrett MD [address] [place] 503795 Physician Ophthalmology 01/21/22 Neil Kent MD 500 [place] [address] Dermatology 02/24/22 Diana Desir, [facility] 3033 [place] [address] Assigned MTM Pharmacist 04/07/22 Livan Sharif MD [address] [place] [address] Cardiovascular Disease 05/14/22 Catherine Cm MD [address] [place] [address] Cardiovascular Disease 07/21/22 Valery Veronica PA-C 909 [place] [address] Physician Employment Case Manager Dermatology 07/21/22 Brea Quinn APRN PLATER APPRENTICE 500 [place] [address] Nurse Practitioner Dermatology 09/21/22 Brea Quinn APRN PLATER APPRENTICE 6401 [facility] [address] Assigned Surgical Provider 10/09/22 05/01/24 [place] [address] [place] [facility] 300 [place] [address] Assigned Musculoskeletal Provider 10/09/22 05/01/24 Alfonso Renteria MD 5775 [facility] 200 [place], [place] 218676 Assigned Neuroscience Provider 04/02/23 09/29/24 Radha Lomeli APRN PLATER APPRENTICE 6[address] [facility] [address] [place] [address] Assigned Heart and Vascular Provider 05/28/23 11/29/24 Jelena David OD [address] [facility] [address] Ophthalmology 06/15/23 Pao Joseph, VJ Personal Advocate & Liaison (PAL) Nurse 08/01/23 11/07/23 Esha Grimm PA-C [address] [place] [phone] Assigned PCP 07/16/23 Valery Veronica PA-C [address] [place] [address] 620655 Physician Employment Case Manager Dermatology 09/19/23 Rey Tay MD [address] [place] [address] 219985 MD Gastroenterology 09/20/23 Rocky Zepeda DO [address] [place] [address] 641925 Physician Gastroenterology 09/20/23 Philip Dumont MD [address] [place] [address] 048395 Physician Ophthalmology 09/22/23 Meredith Carrera PA-C [address] [place] [address] 164005 Assigned Gastroenterology Provider 11/01/23 Neil Kent MD [address] [place] [address] Dermatology 11/02/23 [place] [address] [place] [address] Neurological Surgery 12/26/23 Audrey Waite PA-C 500 [place] [address] Physician Employment Case Manager Dermatology 02/28/24 Valery Veronica PA-C [address]80 [address] [place] [address] Physician Employment Case Manager Dermatology 04/10/24 Herminia Hatch MD [address] [place] [address] Assigned Rheumatology Provider 07/02/24 Jelena aDvid OD [address] [place] [address] [place] [address] Ophthalmology 08/30/24 [place] [address] [place] [address] Assigned Neuroscience Provider 09/30/24 Maru Man PA-C [address] [place] [address] Physician Employment Case Manager Dermatology 10/03/24 Maru Man PA-C [address] [place] [address] Physician Employment Case Manager Dermatology 10/22/24 Jelena David OD [address] [place] [address] [place] [address] Assigned Surgical Provider 10/31/24 Fabiano Correa NP 6405 [facility] [place] [address] Assigned Heart and Vascular Provider 11/30/24 documented as of this encounter
--- OUTSIDE RECORDS SUMMARY | 2024-12-31 03:22 | XMS_ITS | Encounter Summary ---
Author Organization [facility] Address [address] [place] [address] 61339 Care Team Providers Care Ecommerce Project Manager Name Role Phone Diana Desir [facility] Unavailable Rain Galvaiz PA-C Unavailable Tavia Wyatt MD Unavailable [phone] Erica Farrell APRN STAFFING PROGRAM MANAGER Unavailable Rich Barrett MD Unavailable [phone] Neil Kent MD Unavailable Diana Desir [facility] Unavailable Livan Sharif MD Unavailable Catherine Cm MD Unavailable + Valery Veronica PA-C Unavailable Brea Quinn GRAPHIC MANAGER STAFFING PROGRAM MANAGER Unavailable Brea Quinn GRAPHIC MANAGER STAFFING PROGRAM MANAGER Unavailable [phone] Jose Francisco Johnson MD Unavailable Alfonso Renteria MD Unavailable [phone] Esha Grimm PA-C Primary Care Provider [phone] Radha Lomeli APRN STAFFING PROGRAM MANAGER Unavailable Jelena David OD Unavailable [phone] Pao Joseph RN Unavailable Unavailable AlfaJesusEsha M PA-C Unavailable [phone] Valery Veronica PA-C Unavailable Rey Tay MD Unavailable Rocky Zepeda DO Unavailable Philpi Dumont MD Unavailable Meredith Carrera PA-C Unavailable [phone] Neil Kent MD Unavailable Juan Pablo Emmanuel MD Unavailable Audrey Waite PA-C Unavailable Valery Veronica PA-C Unavailable Herminia Hatch MD Unavailable Jelena David OD Unavailable Juan Pablo Emmanuel MD Unavailable Maru Man PA-C Unavailable Maru Man PA-C Unavailable Jelena David OD Unavailable Fabiano Correa NP Unavailable Encounter Details Date Type Department Care Team (Late st Contact Info) Description 08/04/2023 [facility] Medical Advice [address] [address] Diana Desir, [facility] [address] [place], [place] 285546 Social History Tobacco Use Types Packs/Day Years [...] attend [facility] or moravian services? 1 to 4 [...] PHQ-2 Score 0 06/20/2023 [facility] - Occupational [...] CDT Legal Sex Female 4:13 AM SUPERVISOR RESEARCH KENNEL Gender Identity Female 03/02/2021 5:45 PM CDT Sexual Orientation Straight 02/28/2020 12 :51 AM CDT documented as of this encounter Plan of Treatment Upcoming Encounters Date Type Department Care Team (Latest Contact Info) Description 01/02/2025 1:10 PM CDT Ancillary Procedure [facility] [address] [place] [phone] Lauren Claudio, ROVERTO [address] [place] [address] 01/17/2025 10:00 AM CDT Appointment [facility] Respiratory 1925 [place] [phone] Lauren Claudio PA-C [address] [place] [address] 04/16/2025 11:00 AM CDT Virtual Visit [facility] [address] 4th [place] [phone] Meredith Carrera PA-C 909 [place] [address] documented as of this encounter Visit Diagnoses [...] Score: 4 06/20/20 23 8:40 AM SUPERVISOR RESEARCH KENNEL documented as of this encounter Care Teams Ecommerce Project Manager Relationship Specialty Start Date End Date Esha Grimm PA-C [address] [place] [phone] PCP - General Family Medicine 05/04/23 Diana Desir, [facility] [address] [place] [address] Pharmacist Pharmacist 04/17/21 Rain Galaviz PA-C [address] [place] [address] [address] [place] [address] Physician Vendor Management Associate Dermatology 04/28/21 Tavia Wyatt MD [address] [place] [address] [place] [address] Dermatology 07/14/21 Erica Farrell APRN STAFFING PROGRAM MANAGER [address] [place] [address] Nurse Practitioner Cardiovascular Disease 09/09/21 Rich Barrett MD [address] [place] [address] Physician Ophthalmology 01/21/22 Neil Kent MD 500 [place], [place] 748545 Dermatology 02/24/22 Diana Desir, [facility] 30[address] [place] [address] Assigned MTM Pharmacist 04/07/22 Livan Sharif MD [address] [place] 445615 Cardiovascular Disease 05/14/22 Catherine Cm MD [address] [place] 8841800 [place] [address] Cardiovascular Disease 07/21/22 Valery Veronica, PA-C 909 [place], [place] 721875 Physician Vendor Management Associate Dermatology 07/21/22 Brea Quinn APRN STAFFING PROGRAM MANAGER 500 [place], [place] 965305 Nurse Practitioner Dermatology 09/21/22 Brea Quinn APRN STAFFING PROGRAM MANAGER 6401 [facility] [place] 931182 Assigned Surgical Provider 10/09/22 05/01/24 [place] [address] [facility] 300 [place], [place] 132807 Assigned Musculoskeletal Provider 10/09/22 05/01/24 Alfonso Renteria MD 5775 [facility] 200 [place], [place] 192566 Assigned Neuroscience Provider 04/02/23 09/29/24 Radha Lomeli APRN STAFFING PROGRAM MANAGER [address] [place] [phone] [place] 698085 Assigned Heart and Vascular Provider 05/28/23 11/29/24 Jelena David OD 3305 [facility] [place] [address] MD Ophthalmology 06/15/23 Pao Joseph, RN Personal Advocate & Liaison (PAL) Nurse 08/01/23 11/07/23 Esha Grimm PA-C [address] [place] [phone] Assigned PCP 07/16/23 Valery Veronica PA-C [address] [place] [address] Physician Vendor Management Associate Dermatology 09/19/23 Rey Tay MD [address] [place] [address] 333745 MD Gastroenterology 09/20/23 Rocky Zepeda DO [address] [place] [address] 052145 Physician Gastroenterology 09/20/23 Philip Dumont MD [address] [place] [address] 580025 Physician Ophthalmology 09/22/23 Meredith Carrera PA-C [address] [place] [address] 789055 Assigned Gastroenterology Provider 11/01/23 Neil Kent MD [address] [place] [address] 736620 Dermatology 11/02/23 [place] [address] [place] [address] Neurological Surgery 12/26/23 Audrey Waite PA-C 500 [place] [address] Physician Vendor Management Associate Dermatology 02/28/24 Valery Veronica PA-C 698676 [place], [place] [address] Physician Vendor Management Associate Dermatology 04/10/24 Herminia Hatch MD [address] [place] [address] 56599125 Assigned Rheumatology Provider 07/02/24 Jelena David, SONJA [address] [place] [address] [place] [address] Ophthalmology 08/30/24 [place] [address] [place] [address] Assigned Neuroscience Provider 09/30/24 Maru Man PA-C [address] [place] [address] Physician Vendor Management Associate Dermatology 10/03/24 Maru Man PA-C [address] [place] [address] Physician Vendor Management Associate Dermatology 10/22/24 Jelena David, SONJA [address] [place] [address] [place] [address] Assigned Surgical Provider 10/31/24 Fabiano [place], MARBLE MACHINE TENDER [address] [place] [address] Assigned Heart and Vascular Provider 11/30/24 documented as of this encounter
--- OUTSIDE RECORDS SUMMARY | 2024-12-31 03:23 | XMS_ITS | Encounter Summary ---
Author Organization [facility] Address [address] [place] [address]25 Care Team Providers Care Commercial Airline Pilot Name Role Phone Diana Desir [facility] Unavailable Rain Galaviz PA-C Unavailable Tavia Wyatt MD Unavailable Erica Farrell APRN CORK MIXER Unavailable Rich Barrett MD Unavailable [phone] Neil Kent MD Unavailable DesirDiana [facility] Unavailable Livan Sharif MD Unavailable Catherine Cm MD Unavailable + Valery Veronica PA-C Unavailable Brea Quinn APRN CORK MIXER Unavailable [phone] Brea Quinn HOME ECONOMIST CONSUMER SERVICE CORK MIXER Unavailable Jose Francisco Johnson MD Unavailable Sydnie Martinez RN Unavailable Unavailable Alfonso Renteria MD Unavailable [phone] Esha Grimm PA-C Primary Care Provider [phone] Cheng Todd PA-C Unavailable Radha Lomeli APRN CORK MIXER Unavailable Jelena David OD Unavailable [phone] Pao Joseph RN Unavailable Unavailable Esha Grimm Adam PA-C Unavailable [phone] Valery Veronica PA-C Unavailable Rey Tay [...] MyC Medical Advice [facility] [address], [address] [place] [address] Alfonso Renteria MD [address] [facility] [address] 200 [place] [address] Social History Tobacco Use [...] attend [facility] or pentecostal services? 1 to 4 [...] Recorded PHQ-2 Score 0 06/20/2023 [facility] - Occupational [...] PM CDT Legal Sex Female 4:13 AM DRAPERY CUTTER MACHINE Gender Identity Female 03/02/2021 5:45 PM CDT Sexual Orientation Straight 02/28/2020 12 :51 AM CDT documented as of this encounter Miscellaneous Notes * Telephone Encounter - Genny Hyman PA-C - 07/07/2023 11:13 AM DRAPERY CUTTER MACHINE No lesions/abnormal findings on MRI to account for possible seizure activity. Last office note indicated: If repeat MRI was normal would reduce levetiracetam to 250 mg per day for two weeks and then stop. Ok to proceed with this plan. Call if questions, concerns, or worsening of symptoms with discontinuation of the medication Genny Hyman PA-C ERY CUTTER MACHINE documented in this encounter Plan of Treatment Upcoming Encounters Date Type Department Care Team (Latest Contact Info) Description 01/02/2025 1:10 PM CDT Ancillary Procedure [address] [address] Lauren Claudio PA-C [address] [place] [address] 01/17/2025 10:00 AM CDT Appointment [address] [phone] Lauren Claudio PA-C [address] [place] [address] 04/16/2025 11:00 AM CDT Virtual Visit [facility] Gastroenterology Clinic [address] [place] [phone] Meredith Carrera PA-C [address] [place] [address] documented as of this encounter Visit Diagnoses [...] Depression Total Score: 4 06/20/20 8:40 AM DRAPERY CUTTER MACHINE documented as of this encounter Care Teams Commercial Airline Pilot Relationship Specialty Start Date End Date Esha Grimm PA-C [address] [place] [phone] PCP - General Family Medicine 05/04/23 Diana Desir, [facility] [address] [place], [place] 968726 Pharmacist Pharmacist 04/17/21 Rain Galaviz PA-C [address] [place] [address] DR [address] [facility] [place] [address] Physician Popcorn Attendant Dermatology 04/28/21 Tavia Wyatt MD [address] [place] [address] [place] [address] Dermatology 07/14/21 Erica Farrell APRN CORK MIXER [address] [place] 807165 Nurse Practitioner Cardiovascular Disease 09/09/21 Rich Barrett MD [address] [place] 316185 Physician Ophthalmology 01/21/22 Neil Kent MD 500 [place], [place] 239195 Dermatology 02/24/22 Diana Desir, [facility] 3033 [facility] [place] 565146 Assigned MTM Pharmacist 04/07/22 Livan Sharif MD 6405 [facility] [address] [facility] [address] [place] 301975 Cardiovascular Disease 05/14/22 Catherine Cm MD [address] [place] [address] [place] 638945 Cardiovascular Disease 07/21/22 Valery Veronica, PA-C [address] [place], [place] 949745 Physician Popcorn Attendant Dermatology 07/21/22 Brea Quinn APRN CORK MIXER 500 [place], [place] 189045 Nurse Practitioner Dermatology 09/21/22 Brea Quinn APRN CORK MIXER [address] [place] [address] [place] 189122 Assigned Surgical Provider 10/09/22 05/01/24 [place] [address] [place], [place] 550867 Assigned Musculoskeletal Provider 10/09/22 05/01/24 Sydnie Martinez, RN Personal Advocate & Liaison (PAL) Family Medicine 03/28/23 07/31/23 Alfonso Renteria MD 5775 [facility] [address] 200 [place] [address] Assigned Neuroscience Provider 04/02/23 09/29/24 Cheng Todd PA-C [address] [place] [address] Assigned PCP 04/30/23 07/15/23 Radha Lomeli APRN CORK MIXER 6405 [facility] [address] [place] [address] Assigned Heart and Vascular Provider 05/28/23 11/29/24 Jelena David OD [address] [place] [address] Ophthalmology 06/15/23 Pao Joseph, VJ Personal Advocate & Liaison (PAL) Nurse 08/01/23 11/07/23 Esha Grimm PA-C [address] [place] [phone] Assigned PCP 07/16/23 Valery Veronica PA-C [address] [place] [address] 416205 Physician Popcorn Attendant Dermatology 09/19/23 Rey Tay MD [address] [place] [address] 238845 Gastroenterology 09/20/23 Rocky Zepeda DO [address] [place] [address] 725615 Physician Gastroenterology 09/20/23 Philip Dumont MD [address] [place] [address] Physician Ophthalmology 09/22/23 Meredith Carrera PA-C [address] [place] [address] 132785 Assigned Gastroenterology Provider 11/01/23 Neil Kent MD [address] [address] MD Dermatology 11/02/23 [place] [address] [address] Neurological Surgery 12/26/23 Audrey Waite PA-C [address] [place] [address] Physician Popcorn Attendant Dermatology 02/28/24 Valery Veronica PA-C 286809 [address], [place] [address] Physician Popcorn Attendant Dermatology 04/10/24 Herminia Hatch MD [address] [place] [address] Assigned Rheumatology Provider 07/02/24 Jelena David OD [address] [place] [address] [place] [address] Ophthalmology 08/30/24 [place] [address] [place] [address] Assigned Neuroscience Provider 09/30/24 Maru Man PA-C [address] [place] [address] Physician Popcorn Attendant Dermatology 10/03/24 Maru Man PA-C [address] [place] [address] Physician Popcorn Attendant Dermatology 10/22/24 Jelena David OD [address] [place] [address] Assigned Surgical Provider 10/31/24 Fabiano Correa NP [address] [place] [address] Assigned Heart and Vascular Provider 11/30/24 documented as of this encounter
--- OUTSIDE RECORDS SUMMARY | 2024-12-31 03:23 | XMS_ITS | Encounter Summary ---
Author Organization [facility] Address [address] [place] [address] Care Team Providers Care Investment Advisor Name Role Phone Diana Desir [facility] Unavailable [phone] Rain GalavizC Unavailable Tavia Wyatt MD Unavailable [phone] Erica Farrell APRN CONSULTING MARINE ENGINEER Unavailable Rich Barrett MD Unavailable [phone] Neil Kent MD Unavailable ThangKendrickDiana Stanislav [facility] Unavailable Livan Sharif MD Unavailable Catherine Cm MD Unavailable + Valery Veronica-C Unavailable [phone] Brea Quinn APRN CONSULTING MARINE ENGINEER Unavailable Esha Grimm PA-C Primary Care Provider [phone] Jelena David OD Unavailable Esha Grimm PA-C Unavailable [phone] Valery Veronica PA-C Unavailable Rey Tay MD Unavailable DuaneRocky Unavailable Philip Dumont MD Unavailable [phone] Meredith Carrera PA-C Unavailable [phone] Neil Kent MD Unavailable Juan Pablo Emmanuel MD Unavailable Audrey Waite PA-C Unavailable [phone] Valery Veronica PA-C Unavailable Herminia Hatch MD Unavailable Jelena David OD Unavailable [phone] Juan Pablo Emmanuel MD Unavailable [phone] Maru Man-C Unavailable [phone] Maru Man-C Unavailable [phone] Jelena David OD Unavailable [phone] Fabiano Correa NP Unavailable [phone] Encounter Details Date Type Department Care Team [...] you attend [facility] or hinduism services? 1 to 4 times [...] 1 10/24/2024 [facility] of Occupat ional [...] exercise at this level? 20 min 05/07/2024 [place] Depression Scale Answer Date Recorded [place] Depression Score 5 01/14/2021 Last EPDS Self [...] PM CDT Legal Sex Female 4:13 AM BENDER HAND Gender Identity Female 03/02/2021 5:45 PM CDT Sexual Orientation Straight 02/28/2020 12 :51 AM CDT documented as of this encounter Plan of Treatment Upcoming Encounters Date Type Department Care Team (Latest Contact Info) Description 01/02/2025 1:10 PM CDT Ancillary Procedure [address] [phone] Lauren Claudio PA-C [address] [place] [address] 01/17/2025 10:00 AM CDT Appointment [facility] Respiratory [facility]5 [place] [phone] Lauren Claudio PA-C [address] [place] [address] 04/16/2025 11:00 AM CDT Virtual Visit [facility] G[facility]ology [facility] [place] [address] [facility] [address] 4th [place] [phone] Meredith Carrera PA-C [address] [place] [address] documented as of this encounter Visit Diagnoses Not on filedocumented in this encounter Additional Health Concerns Assessment Noted Time PHQ-9 Depression Total Score: 5 10/25/19 25 10:38 AM CDT documented as of this encounter Care Teams Investment Advisor Relationship Specialty Start Date End Date Esha Grimm PA-C [address] [place] [phone] PCP - General Family Medicine 05/04/23 Diana Desir, [facility] [address] [place] [address] Pharmacist Pharmacist 04/17/21 Rain Galaviz PA-C [address] [place] [address] [address] [place] [address] Physician Lithographic Press Feeder Dermatology 04/28/21 Tavia Wyatt MD [address] [place] [address] [address] [place] [address] Dermatology 07/14/21 Erica Farrell APRN CONSULTING MARINE ENGINEER [address] [place] 140845 Nurse Practitioner Cardiovascular Disease 09/09/21 Rich Barrett MD [address] [place] 778685 Physician Ophthalmology 01/21/22 Neil Kent MD 500 [place], [place] 614515 Dermatology 02/24/22 Diana Desir, [facility] 3033 [place] [address] Assigned [place] Pharmacist 04/07/22 Livan Sharif MD [address] [place], [place] 150995 Cardiovascular Disease 05/14/22 Catherine Cm MD [address] [place], [place] 108695 Cardiovascular Disease 07/21/22 Valery Veronica PA-C [address]09 [place], [place] 880815 Physician Lithographic Press Feeder Dermatology 07/21/22 Brea Quinn APRN CONSULTING MARINE ENGINEER 500 [place], [place] 565025 Nurse Practitioner Dermatology 09/21/22 Jelena David OD [address] [facility] [place] [address] Ophthalmology 06/15/23 Esha Grimm PA-C [address] [place] [address]-964383 Assigned PCP 07/16/23 Valery Veronica PA-C [address] [place] [address] Physician Lithographic Press Feeder Dermatology 09/19/23 Rey Tay MD [address] [place] [address] MD Gastroenterology 09/20/23 Rocky Zepeda DO [address] [place] [address] Physician Gastroenterology 09/20/23 Philip Dumont MD [address] [place] [address] Physician Ophthalmology 09/22/23 Meredith Carrera PA-C [address] [place] [address] Assigned Gastroenterology Provider 11/01/23 Neil Kent MD [address] [address] Dermatology 11/02/23 [place] [address] [place] [address] Neurological Surgery 12/26/23 Audrey Waite PA-C [address] [place] [address] 574365 Physician Lithographic Press Feeder Dermatology 02/28/24 Valery Veronica PA-C [address] [place] [address] Physician Lithographic Press Feeder Dermatology 04/10/24 Herminia Hatch MD [facility] [place], [place] 13929125 Assigned Rheumatology Provider 07/02/24 Jelena David OD [address] [facility] [place] [address] Ophthalmology 08/30/24 [place] [address] [place] [address] Assigned Neuroscience Provider 09/30/24 Maru Man PA-C [address] [place] [address] Physician Lithographic Press Feeder Dermatology 10/03/24 Maru Man PA-C [address] [place] [address] Physician Lithographic Press Feeder Dermatology 10/22/24 Jelena David, SONJA [address] [facility] [place] [address] Assigned Surgical Provider 10/31/24 Fabiano Correa NP [address] [place] 179155 Assigned Heart and Vascular Provider 11/30/24 documented as of this encounter
--- OUTSIDE RECORDS SUMMARY | 2024-12-31 03:23 | XMS_ITS | Encounter Summary ---
Author Organization [place] Address [address] [place] [address] Care Team Providers Care Tariff Inspector Name Role Phone Diana Desir [facility] Unavailable Rain GalavizC Unavailable Tavia Wyatt MD Unavailable Erica Farrell APRN RESIDENT ADVISOR Unavailable Rich Barrett MD Unavailable [phone] Neil Kent MD Unavailable DesirKendrickDiana Stanislav [facility] Unavailable [phone] Livan Sharif MD Unavailable Catherine Cm MD Unavailable + Valery Veronica-C Unavailable [phone] Brea Quinn LEAD WELDER RESIDENT ADVISOR Unavailable [phone] Alfonso Renteria MD Unavailable [phone] Esha GrimmC Primary Care Provider [phone] Radha Lomeli APRN RESIDENT ADVISOR Unavailable Jelena David OD Unavailable [place], Esha M PA-C Unavailable [phone] Valery Veronica PA-C Unavailable Rey Tay MD Unavailable Rocky Zepeda DO Unavailable Philip Dumont MD Unavailable Meredith Carrera PA-C Unavailable [phone] Neil Kent MD Unavailable Juan Pablo Emmanuel MD Unavailable [phone] Audrey Waite PA-C Unavailable Valery Veronica PA-C Unavailable Herminia Hatch MD Unavailable Jelena David OD Unavailable Juan Pablo Emmanuel MD Unavailable Maru Man PA-C Unavailable Maru Man PA-C Unavailable Jelena David OD Unavailable Fabiano Correa NP Unavailable Encounter Details Date Type Department Care Team (Late st Contact Info) Description 06/06/2024 [facility] [address] [place] [phone] Outside, Provider Social History Tobacco Use Types [...] Answer Date Recorded PHQ-2 Score 1 02/07/2024 [facility] of Occupat ional [...] exercise at this level? 20 min 05/07/2024 [place] Depression Scale Answer Date Recorded [place] Depression Score 5 01/14/2021 Last EPDS [...] PM CDT Legal Sex Female 4:13 AM NEWS AGENT Gender Identity Female 03/02/2021 5:45 PM CDT Sexual Orientation Straight 02/28/2020 12 :51 AM CDT documented as of this encounter Plan of Treatment Upcoming Encounters Date Type Department Care Team (Latest Contact Info) Description 01/02/2025 1:10 PM CDT Ancillary Procedure [facility] [address] [place] [phone] Lauren Claudio PA-C [address] [place] [address] 01/17/2025 10:00 AM CDT Appointment [facility] Respiratory 5 [place] [address] Lauren Claudio PA-C [address] [place], [place] [phone] 04/16/2025 11:00 AM CDT Virtual Visit [facility] Gastroenterology Clinic [address] 4th [place] [phone] Meredith Carrera PA-C [address] [place] [address] documented as of this encounter Procedures Procedure Name Priority Date/Time Associated Diagnosis Comments HLA RESULT REPORT 06/06/2024 2:04 PM NEWS AGENT documented in this encounter Results * HLA Result Report (06/06/2024 2:04 PM NEWS AGENT) us Provider Outside LAB - IMMUNOLOGY [...] documented as of this encounter Care Teams Tariff Inspector Relationship Specialty Start Date End Date Esha Grimm PA-C [address] [place] [phone] PCP - General Family Medicine 05/04/23 Diana Desir [facility] [address] [place], [place] [phone] Pharmacist Pharmacist 04/17/21 Rain Glaaviz PA-C [address] [place] [address] [address] [place] [address] Physician Home Health Physical Therapist Dermatology 04/28/21 Tavia Wyatt MD [address] [place] [address] [address] [place] [address] Dermatology 07/14/21 Erica Farrell APRN RESIDENT ADVISOR [address] [place] [address] Nurse Practitioner Cardiovascular Disease 09/09/21 Rich Barrett MD [address] [place] 857945 Physician Ophthalmology 01/21/22 Neil Kent MD 500 [place] [address] Dermatology 02/24/22 Diana Desir, [facility] [address] [place] [address] Assigned MTM Pharmacist 04/07/22 Livan Sharif MD [address] [facility] [address] [place] 553325 Cardiovascular Disease 05/14/22 Catherine Cm MD [address] [place] 427965 Cardiovascular Disease 07/21/22 Valery Veronica PA-C [address] [place] [address] 251425 Physician Home Health Physical Therapist Dermatology 07/21/22 Brea Quinn APRN RESIDENT ADVISOR [address] [place] [address] 681295 Nurse Practitioner Dermatology 09/21/22 Alfonso Renteria MD [address] [facility] 200 [place], [place] 797006 Assigned Neuroscience Provider 04/02/23 09/29/24 Radha Lomeli APRN RESIDENT ADVISOR [address] [address] Assigned Heart and Vascular Provider 05/28/23 11/29/24 Jelena David OD [address] [facility] [address] Ophthalmology 06/15/23 Esha Grimm PA-C [address] [place] [address]-855683 Assigned PCP 07/16/23 Valery Veronica PA-C [address] [place] [address] 450645 Physician Home Health Physical Therapist Dermatology 09/19/23 Rey Tay MD [address] [place] [address] 472315 Gastroenterology 09/20/23 Rocky Zepeda DO [address] [place] [address] 573705 Physician Gastroenterology 09/20/23 Philip Dumont MD [address] [place] [address] Physician Ophthalmology 09/22/23 Meredith Carrera PA-C [address] [place] [address] 887875 Assigned Gastroenterology Provider 11/01/23 Neil Kent MD [address] [place] [address] 200040 Dermatology 11/02/23 [place] [address] [place] [address] 626747 Neurological Surgery 12/26/23 Audrey Waite PA-C [address] [place] [address] Physician Home Health Physical Therapist Dermatology 02/28/24 Valery Veronica PA-C 458504 [place] [address] Physician Home Health Physical Therapist Dermatology 04/10/24 Herminia Hatch MD [facility]5 [place] [address] Assigned Rheumatology Provider 07/02/24 [place] [address] [place] [address] [place] [address] Ophthalmology 08/30/24 [place] [address] [place] [address] Assigned Neuroscience Provider 09/30/24 Maru Man PA-C [address] [place] [address] Physician Home Health Physical Therapist Dermatology 10/03/24 Maru Man PA-C [address] [place] [address] Physician Home Health Physical Therapist Dermatology 10/22/24 Jelena David OD [address] [facility] [place] [address] Assigned Surgical Provider 10/31/24 Fabiano Correa NP [address] [place] [address] Assigned Heart and Vascular Provider 11/30/24 documented as of this encounter
--- OUTSIDE RECORDS SUMMARY | 2024-12-31 03:23 | XMS_ITS | Encounter Summary ---
Author Organization [place] Address [address] [place] [address] Care Team Providers Care School Bus Driver Name Role Phone Diana Desir [facility] Unavailable Rain Galaviz PA-C Unavailable Tavia Wyatt MD Unavailable Erica Farrell APRN MAIL CARRIER AND CLERK Unavailable Rich Barrett MD Unavailable [phone] Neil Kent MD Unavailable Diana Desir [facility] Unavailable [phone] Livan Sharif MD Unavailable Catherine Cm MD Unavailable + Valery Veronica PA-C Unavailable [phone] Brea Quinn COTTAGE ATTENDANT MAIL CARRIER AND CLERK Unavailable Brea Quinn COTTAGE ATTENDANT MAIL CARRIER AND CLERK Unavailable Jose Francisco Johnson MD Unavailable Sydnie Martinez RN Unavailable Unavailable Alfonso Renteria MD Unavailable [phone] Esha Grimm PA-C Primary Care Provider Radha Lomeli APRN MAIL CARRIER AND CLERK Unavailable Jelena David OD Unavailable Pao Joseph RN Unavailable Unavailable Esha Grimm PA-C Unavailable Valery Veronica PA-C Unavailable [phone] Rey Tay MD Unavailable Rocky Zepeda [...] Team (Late st Contact Info) Description 07/27/2023 [facility] [address] [address] Diana Desir, [facility] [address] [place], [place] [phone] Social History Tobacco Use Types Packs/Day Years [...] do you attend [facility] or hindu services? 1 to 4 [...] Score 0 06/20/2023 [facility] - Occupational Stress Questionnaire [...] exercise at this level? 30 min 03/10/2023 [place] Depression Scale Answer Date Recorded [place] Depression Score 5 01/14/2021 Last EPDS Self [...] PM CDT Legal Sex Female 4:13 AM OPENSTACK CLOUD CONSULTING ARCHITECT Gender Identity Female 03/02/2021 5:45 PM CDT Sexual Orientation Straight 02/28/2020 12 :51 AM CDT documented as of this encounter Plan of Treatment Upcoming Encounters Date Type Department Care Team (Latest Contact Info) Description 01/02/2025 1:10 PM CDT Ancillary Procedure [address] [address] Lauren Claudio PA-C [address] [place] [address] 01/17/2025 10:00 AM CDT Appointment [facility] Respiratory [address] [place] [phone] Lauren Claudio PA-C [address] [place] [address] 04/16/2025 11:00 AM CDT Virtual Visit [facility] Gastroenterology Clinic [address] 4th [place] [phone] Meredith Carrera PA-C [address] [place] [address] documented as of this encounter Visit Diagnoses [...] Total Score: 4 06/20/20 23 8:40 AM OPENSTACK CLOUD CONSULTING ARCHITECT documented as of this encounter Care Teams School Bus Driver Relationship Specialty Start Date End Date Esha Grimm PA-C [address] [place] [phone] PCP - General Family Medicine 05/04/23 Diana Desir, [facility] [address] [place] [address] Pharmacist Pharmacist 04/17/21 Rain Gaalviz PA-C [address] [place] [address] [address] [place] [address] Physician Bridge Painter Dermatology 04/28/21 Tavia Wyatt MD [address] [place] [address] [address] [place] [address] Dermatology 07/14/21 Erica Farrell APRN MAIL CARRIER AND CLERK [address] [place] [address] Nurse Practitioner Cardiovascular Disease 09/09/21 Rich Barrett MD [address] [place] [address] Physician Ophthalmology 01/21/22 Neil Kent MD 500 [place] [address] Dermatology 02/24/22 Diana Desir, [facility] [address] [place] [address] Assigned MTM Pharmacist 04/07/22 Livan Sharif MD [address] [facility] [address] [place] 0[address]75 Cardiovascular Disease 05/14/22 Catherine Cm MD 6405 [facility] [address] [place] 062125 Cardiovascular Disease 07/21/22 Valery Veronica, PAUcheC 909 [place], [place] 803185 Physician Bridge Painter Dermatology 07/21/22 Brea Quinn APRN MAIL CARRIER AND CLERK [address] [place] [address] [phone] Nurse Practitioner Dermatology 09/21/22 Brea Quinn APRN MAIL CARRIER AND CLERK 6401 [facility] [place] 008762 Assigned Surgical Provider 10/09/22 05/01/24 [place] [address] [facility] 300 [place] [address] Assigned Musculoskeletal Provider 10/09/22 05/01/24 Sydnie Martinez RN Personal Advocate & Liaison (PAL) Family Medicine 03/28/23 07/31/23 Alfonso Renteria MD [address] [facility] 200 [place], [place] 738936 Assigned Neuroscience Provider 04/02/23 09/29/24 Radha Lomeli APRN MAIL CARRIER AND CLERK [facility]405 [facility] [address] [place] [address] Assigned Heart and Vascular Provider 05/28/23 11/29/24 Jelena David OD 3305 [facility] [place] [address] MD Ophthalmology 06/15/23 Pao Joseph, RN Personal Advocate & Liaison (PAL) Nurse 08/01/23 11/07/23 Esha Grimm PA-C [address] [place] [phone] Assigned PCP 07/16/23 Valery Veronica PA-C [address] [place] [address] 555485 Physician Bridge Painter Dermatology 09/19/23 Rey Tay MD [address] [place] [address] 214655 MD Gastroenterology 09/20/23 Rocky Zepeda DO [address] [place] [address] 073545 Physician Gastroenterology 09/20/23 Philip Dumont MD [address] [place] [address] 162665 Physician Ophthalmology 09/22/23 Meredith Carrera PA-C [address] [place] [address] 917775 Assigned Gastroenterology Provider 11/01/23 Neil Kent MD [address] [address] Dermatology 11/02/23 [place] [address] [place] [address] Neurological Surgery 12/26/23 Audrey Waite PA-C 500 [place] [address] Physician Bridge Painter Dermatology 02/28/24 Valery Veronica PA-C [address] [address] Physician Bridge Painter Dermatology 04/10/24 Herminia Hatch MD [address] [place] [address] Assigned Rheumatology Provider 07/02/24 Jelena David OD [address] [place] [address] [place] [address] Ophthalmology 08/30/24 [place] [address] [place] [address] Assigned Neuroscience Provider 09/30/24 Maru Man PA-C [address] [place] [address] Physician Bridge Painter Dermatology 10/03/24 Maru Man PA-C [address] [place] [address] Physician Bridge Painter Dermatology 10/22/24 Jelena David OD [address] [place] [address] [place] [address] Assigned Surgical Provider 10/31/24 Fabiano Correa NP [address] [place] [address] Assigned Heart and Vascular Provider 11/30/24 documented as of this encounter
--- OUTSIDE RECORDS SUMMARY | 2024-12-31 03:23 | XMS_ITS | Encounter Summary ---
Author Organization [place] Address [address] [place] [address] Care Team Providers Care Back Gray Cloth Washer Name Role Phone Diana Desir [facility] Unavailable Rain GalavizC Unavailable Tavia Wyatt MD Unavailable Erica Farrell APRN CHISEL GRINDER Unavailable Rich Barrett MD Unavailable [phone] Neil Kent MD Unavailable DesirKendrickDiana Stanislav [facility] Unavailable [phone] Livan Sharif MD Unavailable Catherine Cm MD Unavailable + Valery Veronica-C Unavailable Brea Quinn DISASSEMBLER CHISEL GRINDER Unavailable Alfonso Renteria MD Unavailable [phone] Esha GrimmC Primary Care Provider [phone] Radha Lomeli APRN CHISEL GRINDER Unavailable Jelena David OD Unavailable Alfa, Esha M PA-C Unavailable [phone] Valery Veronica PA-C Unavailable Rey Tay MD Unavailable Rocky Zepeda DO Unavailable Philip Dumont MD Unavailable Meredith Carrera PA-C Unavailable Neil Kent MD Unavailable Juan Pablo Emmanuel MD Unavailable [phone] Audrey Waite PA-C Unavailable Valery Veronica PA-C Unavailable Herminia Hatch MD Unavailable Jelena David OD Unavailable [phone] Juan Pablo Emmanuel MD Unavailable Maru Man PA-C Unavailable Maru Man PA-C Unavailable Jelena David OD Unavailable Fabiano Correa NP Unavailable Encounter Details Date Type Department Care Team (Late st Contact Info) Description 06/21/2024 MyC Medical Advice [address] [address] Antonella Eldridge, RN Social History [...] Answer Date Recorded PHQ-2 Score 1 02/07/2024 [facility] of Occupat [...] exercise at this level? 20 min 05/07/2024 [place] Depression Scale Answer Date Recorded [place] Depression Score 5 01/14/2021 Last EPDS Self [...] PM CDT Legal Sex Female 4:13 AM BEER MERCHANT Gender Identity Female 03/02/2021 5:45 PM CDT Sexual Orientation Straight 02/28/2020 12 :51 AM CDT documented as of this encounter Plan of Treatment Upcoming Encounters Date Type Department Care Team (Latest Contact Info) Description 01/02/2025 1:[address] [facility] [address] [place] [phone] Lauren Claudio PA-C [address] [place] [address] 01/17/2025 10:00 AM CDT Appointment [facility] Respiratory [address] [place] [address] Lauren Claudio PA-C [address] [place], [place] [phone] 04/16/2025 11:00 AM CDT Virtual Visit [facility] [address] 4th [place] [phone] Meredith Carrera PA-C 909 [place] [address] documented as of this encounter Visit Diagnoses [...] as of this encounter Care Teams Back Gray Cloth Washer Relationship Specialty Start Date End Date Esha Grimm PA-C [address] [place] [address] PCP - General Family Medicine 05/04/23 Diana Desir, [facility] [address] [facility] [place] [address] Pharmacist Pharmacist 04/17/21 Rain Galaviz PA-C [address] [place] [address] DR ARRIOLA [facility] [address] Physician Proposition Player Dermatology 04/28/21 Tavia Wyatt MD [address] [place] [address] DR JENNI BARROSOEN [place] [address] Dermatology 07/14/21 Erica Farrell APRN CHISEL GRINDER [address] [place] [address] Nurse Practitioner Cardiovascular Disease 09/09/21 Rich Barrett MD [address] [place] [address] Physician Ophthalmology 01/21/22 Neil Kent MD [address] [place] [address] 227115 Dermatology 02/24/22 [facility] [address] [place] [address] 829096 Assigned [facility] Pharmacist 04/07/22 Livan Sharif MD [address] [facility] [place] [address] Cardiovascular Disease 05/14/22 Catherine Cm MD [address] [facility] [place] [address] Cardiovascular Disease 07/21/22 Valery Veronica, PA-C [address] [place] [address] 258645 Physician Proposition Player Dermatology 07/21/22 Brea Quinn APRN CHISEL GRINDER [address] [place] [address] 302315 Nurse Practitioner Dermatology 09/21/22 Alfonso Renteria MD [address] [facility] [address] [place], [place] 935406 Assigned Neuroscience Provider 04/02/23 09/29/24 Radha Lomeli APRN CHISEL GRINDER [address] 622625 Assigned Heart and Vascular Provider 05/28/23 11/29/24 Jelena David OD [facility] [facility] [place] [address] Ophthalmology 06/15/23 Esha Grimm PA-C [address] [place] [phone] Assigned PCP 07/16/23 Valery Veronica PA-C [address] [place] [address] Physician Proposition Player Dermatology 09/19/23 Rey Tay MD [address] [place] [address] 059945 Gastroenterology 09/20/23 Rocky Zepeda DO [address] [place] [address] 154645 Physician Gastroenterology 09/20/23 Philip Dumont MD [address] [place] [address] Physician Ophthalmology 09/22/23 Meredith Carrera PA-C [address] [place] [address] 919905 Assigned Gastroenterology Provider 11/01/23 Neil Kent MD [address] 0448[address] Dermatology 11/02/23 [place] [address] [place], [place] 7[address] Neurological Surgery 12/26/23 Audrey Waite PA-C [address] [place] [address] Physician Proposition Player Dermatology 02/28/24 Valery Veronica PA-C 385988 [place] [address] Physician Proposition Player Dermatology 04/10/24 Herminia Hatch MD [address] [place] [address] [phone] Assigned Rheumatology Provider 07/02/24 Jelena David OD [address] [place] [address] [place] [address] Ophthalmology 08/30/24 [place] [address] [place] [address] Assigned Neuroscience Provider 09/30/24 Maru Man PA-C [address] [place] [address] Physician Proposition Player Dermatology 10/03/24 Maru Man PA-C [address] [place] [address] Physician Proposition Player Dermatology 10/22/24 Jelena David OD [facility] [place] [address] Assigned Surgical Provider 10/31/24 Fabiano Correa, BRYCE [address] [place] [address] Assigned Heart and Vascular Provider 11/30/24 documented as of this encounter
--- OUTSIDE RECORDS SUMMARY | 2024-12-31 03:23 | XMS_ITS | Encounter Summary ---
Author Organization [place] Address [address] [place] [address] Care Team Providers Care Head Insulation Board Saw Operator Name Role Phone Diana Desir [facility] Unavailable Rain Galaviz PA-C Unavailable Tavia Wyatt MD Unavailable Erica Farrell APRN PAD MACHINE OPERATOR Unavailable Rich Barrett MD Unavailable [phone] Neil Kent MD Unavailable DesirDiana [facility] Unavailable Livan Sharif MD Unavailable Catherine Cm MD Unavailable + Valery Veronica PA-C Unavailable [phone] Brea Quinn APRN PAD MACHINE OPERATOR Unavailable [phone] Brea Quinn OUTDOOR ADVERTISING LEASING AGENT PAD MACHINE OPERATOR Unavailable [phone] Jose Francisco Johnson MD Unavailable Sydnie Martinez RN Unavailable Unavailable Alfonso Renteria MD Unavailable [phone] Esha Grimm PA-C Primary Care Provider [phone] Cheng Todd PA-C Unavailable Radha Lomeli APRN PAD MACHINE OPERATOR Unavailable Jelena David OD Unavailable [phone] Pao Joseph RN Unavailable Unavailable Esha Grimm PA-C Unavailable [phone] Valery Veronica PA-C Unavailable Rey Tay [...] Team (Late st Contact Info) Description 07/06/2023 [facility] [address] [place] [address] Esha Grimm PA-C [address] [place] [address] Social History Tobacco Use Types [...] you attend [facility] or hinduism services? 1 to 4 times [...] Score 0 06/20/2023 [facility] [...] exercise at this level? 30 min 03/10/2023 [place] Depression Scale Answer Date Recorded [place] Depression Score 5 01/14/2021 Last EPDS Self [...] Description 01/02/2025 1:10 PM CDT Ancillary Procedure [address] [place] [address] Lauren Claudio PA-C [address] [place] [address] 01/17/2025 10:00 AM CDT Appointment [facility] [address] [place] [phone] Lauren Claudio PA-C [address] [place] [address] 04/16/2025 11:00 AM CDT Virtual Visit [facility] Gastroenterology Clinic [address] [phone] Meredith Carrera PA-C [address] [place] [address] documented as of this encounter Visit Diagnoses [...] Total Score: 4 06/20/20 23 8:40 AM PRODUCT OPERATIONS ASSOCIATE documented as of this encounter Care Teams Head Insulation Board Saw Operator Relationship Specialty Start Date End Date Esha Grimm PA-C [address] [place] [address] PCP - General Family Medicine 05/04/23 Diana Desir [facility] [address] [place] [address] Pharmacist Pharmacist 04/17/21 Rain Galaviz PA-C [address] [place] [address] [address] [place] [address] Physician Forester Silviculture Dermatology 04/28/21 Tavia Wyatt MD [address] [place] [address] [address] [facility] [place] [address] Dermatology 07/14/21 Erica Farrell APRN PAD MACHINE OPERATOR [address] [place], [place] 002895 Nurse Practitioner Cardiovascular Disease 09/09/21 Rich Barrett MD [address] [place], [place] [address]15 Physician Ophthalmology 01/21/22 Neil Kent MD 500 [place] [address] Dermatology 02/24/22 Diana Desir, [facility] [address] [place] [address] Assigned MTM Pharmacist 04/07/22 Livan Sharif MD [address] [place] [address] Cardiovascular Disease 05/14/22 Catherine Cm MD [address] [facility] [address] [place] [address] Cardiovascular Disease 07/21/22 Valery Veronica PA-C [address] [place] [address] Physician Forester Silviculture Dermatology 07/21/22 Brea Quinn APRN PAD MACHINE OPERATOR [address] [place] [address] Nurse Practitioner Dermatology 09/21/22 Brea Quinn APRN PAD MACHINE OPERATOR [address] [place] [address] Assigned Surgical Provider 10/09/22 05/01/24 [place] [address] [address] [facility] [address] [place] [address] Assigned Musculoskeletal Provider 10/09/22 05/01/24 Sydnie Martinez RN Personal Advocate & Liaison (PAL) Family Medicine 03/28/23 07/31/23 Alfonso Renteria MD [address] [facility] 200 [place], [place] 45[address] Assigned Neuroscience Provider 04/02/23 09/29/24 Cheng Todd PA-C [address] [place] [address] [id number] Assigned PCP 04/30/23 07/15/23 Radha Lomeli APRN PAD MACHINE OPERATOR [address] [facility] [address] [place] [address] Assigned Heart and Vascular Provider 05/28/23 11/29/24 Jelena David OD [address] [facility] [place] [address] MD Ophthalmology 06/15/23 Pao Joseph, VJ Personal Advocate & Liaison (PAL) Nurse 08/01/23 11/07/23 Esha Grimm PA-C [address] [place] [phone] Assigned PCP 07/16/23 Valery Veronica PA-C [address] [place] [address] 149335 Physician Forester Silviculture Dermatology 09/19/23 Rey Tay MD [address] [place] [address] 312455 MD Gastroenterology 09/20/23 Rocky Zepeda DO [address] [place] [address] 927775 Physician Gastroenterology 09/20/23 Phiilp Dumont MD [address] [place] [address] 581485 Physician Ophthalmology 09/22/23 Meredith Carrera PA-C [address] [place] [address] 350385 Assigned Gastroenterology Provider 11/01/23 Neil Kent MD [address] [place] [address] MD Dermatology 11/02/23 [place] [address] [place] [address] Neurological Surgery 12/26/23 Audrey Waite PA-C 500 [place] [address] Physician Forester Silviculture Dermatology 02/28/24 Valery Veronica PA-C 328046 [place] [address] Physician Forester Silviculture Dermatology 04/10/24 Herminia Hatch MD [address] [place] [address] [phone] Assigned Rheumatology Provider 07/02/24 Jelena David OD [address] [place] [address] [place] [address] Ophthalmology 08/30/24 [place] [address] [place] [address] Assigned Neuroscience Provider 09/30/24 Maru Man PA-C [address] [place] [address] Physician Forester Silviculture Dermatology 10/03/24 Maru Man PA-C [address] [place] [address] Physician Forester Silviculture Dermatology 10/22/24 Jelena David OD [address] [facility] [place] [address] Assigned Surgical Provider 10/31/24 Fabiano Correa NP [address] [place] [address] Assigned Heart and Vascular Provider 11/30/24 documented as of this encounter
--- OUTSIDE RECORDS SUMMARY | 2024-12-31 03:23 | XMS_ITS | Encounter Summary ---
Author Organization [place] Address [address] [place] [address] Care Team Providers Care Edi Architect Name Role Phone Diana Desir [facility] Unavailable aRin GalavizC Unavailable Tavia Wyatt MD Unavailable [phone] Erica Farrell APRN DRAFTER PLUMBING Unavailable Rich Barrett MD Unavailable [phone] Neil Kent MD Unavailable ThangKendrickDiana Stanislav [facility] Unavailable Livan Sharif MD Unavailable Catherine Cm MD Unavailable + Valery Veronica-C Unavailable Brea Quinn APRN DRAFTER PLUMBING Unavailable [phone] Esha Grimm PA-C Primary Care Provider [phone] Jelena David OD Unavailable Esha Grimm PA-C Unavailable Valery Veronica PA-C Unavailable Rey Tay MD Unavailable Du[facility] Unavailable Philip Dumont MD Unavailable Meredith Carrera PA-C Unavailable [phone] Neil Kent MD Unavailable Juan Pablo Emmanuel MD Unavailable [phone] Audrey Waite PA-C Unavailable Valery Veronica PA-C Unavailable Herminia Hatch MD Unavailable Jelena David OD Unavailable Juan Pablo Emmanuel MD Unavailable Maru ManC Unavailable Maru ManC Unavailable Jelena David OD Unavailable Fabiano Correa NP Unavailable [phone] Encounter Details Date Type Department Care Team (Late st Contact Info) Description 12/12/2024 Results Follow-Up [facility] [address] [place] [address] Anthony Doe PA-C [id number] [place] [address] Subj: Message about your results Social [...] exercise at this level? 20 min 05/07/2024 [place] Depression Scale Answer Date Recorded [place] Depression Score 5 01/14/2021 Last EPDS Self [...] CDT Legal Sex Female 4:13 AM COMPLIANCE ENGINEER Gender Identity Female 03/02/2021 5:45 PM CDT Sexual Orientation Straight 02/28/2020 12 :51 AM CDT documented as of this encounter Plan of Treatment Upcoming Encounters Date Type Department Care Team (Latest Contact Info) Description 01/02/2025 1:10 PM CDT Ancillary Procedure [facility] [address] [place] [phone] Lauren Claudio PA-C [address] [place] [address] 01/17/2025 10:00 AM CDT Appointment [facility] Respiratory [address] [place] [address] Lauren Claudio PA-C [address] [place], [place] [phone] 04/16/2025 11:00 AM CDT Virtual Visit [facility] Gastroenterology Clinic [address] 4th [place] [phone] Meredith Carrera PA-C [address] [place] [address] documented as of this encounter Visit Diagnoses Not on filedocumented in this encounter Additional Health Concerns Assessment Noted Time PHQ-9 Depression Total Score: 5 10/25/19 25 10:38 AM CDT documented as of this encounter Care Teams Edi Architect Relationship Specialty Start Date End Date Esha Grimm PA-C [address] [place] [phone] PCP - General Family Medicine 05/04/23 Diana Desir, [facility] [address] [place] [address] Pharmacist Pharmacist 04/17/21 Rain Galaviz PA-C [address] [place] [address] [address] [place] [address] Physician Deputy Prosecuting Attorney Dermatology 04/28/21 Tavia Wyatt MD [address] [place] [address] [address] [place] [address] Dermatology 07/14/21 Erica Farrell APRN DRAFTER PLUMBING [address] [place] [address] Nurse Practitioner Cardiovascular Disease 09/09/21 Rich Barrett MD [address] [place], [place] 542325 Physician Ophthalmology 01/21/22 Neil Kent MD 500 [place] [address] Dermatology 02/24/22 Diana Desir, [facility] [address] [place] [address] Assigned [facility] Pharmacist 04/07/22 Livan Sharif MD [address] [address] Cardiovascular Disease 05/14/22 Catherine Cm MD [address] [address] Cardiovascular Disease 07/21/22 Valery Veronica, PA-C 909 [place] [address] Physician Deputy Prosecuting Attorney Dermatology 07/21/22 Brea Quinn APRN DRAFTER PLUMBING 500 [place], [place] 759515 Nurse Practitioner Dermatology 09/21/22 Jelena David OD [address] [facility] [place] [address] MD Ophthalmology 06/15/23 Esha Grimm PA-C [address] [place] [phone] Assigned PCP 07/16/23 Valery Veronica PA-C [address] [place] [address] 399505 Physician Deputy Prosecuting Attorney Dermatology 09/19/23 Rey Tay MD [address] [place] [address] 187135 MD Gastroenterology 09/20/23 Rocky Zepeda DO [address] [place] [address] 632205 Physician Gastroenterology 09/20/23 Philip Dumont MD [address] [place] [address] 343795 Physician Ophthalmology 09/22/23 Meredith Carrera PA-C [address] [place] [address] 634365 Assigned Gastroenterology Provider 11/01/23 Neil Kent MD [address] [place] [address] Dermatology 11/02/23 [place] [address] [place] [address] Neurological Surgery 12/26/23 Audrey Waite PA-C 500 [place] [address] Physician Deputy Prosecuting Attorney Dermatology 02/28/24 Valery Veronica PA-C [address] [place] [address] Physician Deputy Prosecuting Attorney Dermatology 04/10/24 Herminia Hatch MD [address] [place] [address] Assigned Rheumatology Provider 07/02/24 Jelena David OD [address] [place] [address] [place] [address] Ophthalmology 08/30/24 [place] [address] [place] [address] Assigned Neuroscience Provider 09/30/24 Maru Man PA-C [address] [place] [address] Physician Deputy Prosecuting Attorney Dermatology 10/03/24 Maru Man PA-C [address] [place] [address] Physician Deputy Prosecuting Attorney Dermatology 10/22/24 Jelena David OD [address] [place] [address] [place] [address] Assigned Surgical Provider 10/31/24 Fabiano Correa MANHOLE BUILDER [address] [place] [address] Assigned Heart and Vascular Provider 11/30/24 documented as of this encounter
--- OUTSIDE RECORDS SUMMARY | 2024-12-31 03:23 | XMS_ITS | Encounter Summary ---
Author Organization [place] Address [address] [place] [address] Care Team Providers Care Fusing Machine Feeder Name Role Phone Diana Desir [facility] Unavailable Rain GalavizC Unavailable Tavia Wyatt MD Unavailable [phone] Erica Farrell APRN TECHNICAL ADMINISTRATIVE ASSISTANT Unavailable Rich Barrett MD Unavailable [phone] Neil Kent MD Unavailable ThangKendrickDiana Stanislav [facility] Unavailable Livan Sharif MD Unavailable Catherine Cm MD Unavailable + Valery Veronica-C Unavailable Brea Quinn APRN TECHNICAL ADMINISTRATIVE ASSISTANT Unavailable Esha Grimm PA-C Primary Care Provider [phone] Jelena David OD Unavailable Esha Grimm PA-C Unavailable [phone] Valery Veronica PA-C Unavailable Rey Tay MD Unavailable DuaneRocky Unavailable Philip Dumont MD Unavailable [phone] Meredith Carrera PA-C Unavailable [phone] Neil Kent MD Unavailable Juan Pablo Emmanuel MD Unavailable Audrey Waite PA-C Unavailable [phone] Valery Veronica PA-C Unavailable [phone] Herminia Hatch MD Unavailable Jelena David OD Unavailable Juan Pablo Emmanuel MD Unavailable [phone] Maru Man-C Unavailable [phone] Maru Man-C Unavailable [phone] Jelena David OD Unavailable Fabiano Correa NP Unavailable [phone] Encounter Details Date Type Department Care Team [...] 05/07/2024 How often do you attend [facility] or latter-day services? 1 to 4 [...] Score 1 10/24/2024 [facility] [...] exercise at this level? 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 Gender Identity Female 03/02/2021 5:45 PM CDT Sexual Orientation Straight 02/28/2020 12 :51 AM CDT documented as of this encounter Plan of Treatment Upcoming Encounters Date Type Department Care Team (Latest Contact Info) Description 01/02/2025 1:10 PM CDT Ancillary Procedure [address] [address] Lauren Claudio PA-C [address] [place] [address] 01/17/2025 10:00 AM CDT Appointment [facility] Respiratory [facility] [place] [phone] Lauren Claudio PA-C [address] [place] [address] 04/16/2025 11:00 AM CDT Virtual Visit [facility] [place] [address] [facility] [address] 4th [place] [phone] Meredith Carrera PA-C [address] [place] [address] documented as of this encounter Visit Diagnoses Not on filedocumented in this encounter Additional Health Concerns Assessment Noted Time PHQ-9 Depression Total Score: 5 10/25/19 25 10:38 AM CDT documented as of this encounter Care Teams Fusing Machine Feeder Relationship Specialty Start Date End Date Esha Grimm PA-C [address] [place] [phone] PCP - General Family Medicine 05/04/23 Diana Desir, [facility] [address] [place] [address] Pharmacist Pharmacist 04/17/21 Rain Galaviz PA-C [address] [place] [address] [address] [place] [address] Physician Remote Encoding Center Manager Dermatology 04/28/21 Tavia Wyatt MD [address] [place] [address] [address] [place] [address] Dermatology 07/14/21 Erica Farrell APRN TECHNICAL ADMINISTRATIVE ASSISTANT [address] [place] [address] Nurse Practitioner Cardiovascular Disease 09/09/21 Rich Barrett MD [address] [place] 030785 Physician Ophthalmology 01/21/22 Neil Kent MD 500 [place], [place] 500045 Dermatology 02/24/22 Diana Desir, [facility] 3033 [place] [address] Assigned [place] Pharmacist 04/07/22 Livan Sharif MD [address] [place], [place] 305[address] Cardiovascular Disease 05/14/22 Catherine Cm MD [address] [place], [place] 935[address] Cardiovascular Disease 07/21/22 Valery Veronica PA-C 909 [place], [place] 851055 Physician Remote Encoding Center Manager Dermatology 07/21/22 Brea Quinn APRN TECHNICAL ADMINISTRATIVE ASSISTANT 500 [place], [place] 702895 Nurse Practitioner Dermatology 09/21/22 Jelena David OD [address] [facility] [address] Ophthalmology 06/15/23 Esha Grimm PA-C [address] [place] [address] Assigned PCP 07/16/23 Valery Veronica PA-C [address] [place] [address] Physician Remote Encoding Center Manager Dermatology 09/19/23 Rey Tay MD [address] [place] [address] MD Gastroenterology 09/20/23 Rocky Zepeda DO [address] [place] [address] Physician Gastroenterology 09/20/23 Philip Dumont MD [address] [place] [address] Physician Ophthalmology 09/22/23 Meredith Carrera PA-C [address] [place] [address] Assigned Gastroenterology Provider 11/01/23 Neil Kent MD [address] [address] Dermatology 11/02/23 [place] [address] [place] [address] Neurological Surgery 12/26/23 Audrey Waite PA-C [address] [place] [address] 275215 Physician Remote Encoding Center Manager Dermatology 02/28/24 Valery Veronica PA-C [address] [place] [address] Physician Remote Encoding Center Manager Dermatology 04/10/24 Herminia Hatch MD [facility]5 [place], [place] 62495125 Assigned Rheumatology Provider 07/02/24 Jelena David OD [address] [facility] [place] [address] Ophthalmology 08/30/24 [place] [address] [place] [address] Assigned Neuroscience Provider 09/30/24 Maru Man PA-C [address] [place] [address] Physician Remote Encoding Center Manager Dermatology 10/03/24 Maru Man PA-C [address] [place] [address] Physician Remote Encoding Center Manager Dermatology 10/22/24 Jelena David, SONJA [address] [facility] [place] [address] Assigned Surgical Provider 10/31/24 Fabiano Correa NP [address] [place] 250295 Assigned Heart and Vascular Provider 11/30/24 documented as of this encounter
--- OUTSIDE RECORDS SUMMARY | 2024-12-31 03:23 | XMS_ITS | Encounter Summary ---
Author Organization [place] Address [address] [place] [address] Care Team Providers Care Vehicle Body Sander Name Role Phone Diana Desir [facility] Unavailable Rain Galaviz PA-C Unavailable Tavia Wyatt MD Unavailable Erica Farrell APRN CLOTH WASHER OPERATOR Unavailable Rich Barrett MD Unavailable [phone] Neil Kent MD Unavailable DesirDiana [facility] Unavailable Livan Sharif MD Unavailable Catherine Cm MD Unavailable + Valery Veronica PA-C Unavailable [phone] Brea Quinn APRN CLOTH WASHER OPERATOR Unavailable Brea Quinn AUDIO VIDEO TECHNICIAN CLOTH WASHER OPERATOR Unavailable Jose Francisco Johnson MD Unavailable Sydnie Martinez RN Unavailable Unavailable Alfonso Renteria MD Unavailable [phone] Esha Grimm PA-C Primary Care Provider [phone] Cheng Todd PA-C Unavailable Radha Lomeli APRN CLOTH WASHER OPERATOR Unavailable Jelena David OD Unavailable [phone] Pao Joseph RN Unavailable Unavailable Esha Grimm Adam PA-C Unavailable [phone] Valery Veronica PA-C Unavailable Rey Tay [...] MyC Medical Advice [facility] [address], [address] [place] [address] Alfonso Renteria MD [address] [facility] [address] [place] [address] Social History Tobacco Use Types [...] you attend [facility] or nondenominational services? 1 to 4 [...] Recorded PHQ-2 Score 0 06/20/2023 [facility] - [facility]ational [...] exercise at this level? 30 min 03/10/2023 [place] Depression Scale Answer Date Recorded [place] Depression Score 5 01/14/2021 Last EPDS Self [...] PM CDT Legal Sex Female 4:13 AM PERMIT REVIEW ASSISTANT Gender Identity Female 03/02/2021 5:45 PM CDT Sexual Orientation Straight 02/28/2020 12 :51 AM CDT documented as of this encounter Miscellaneous Notes * Telephone Encounter - Lulu Xie - 06/28/2023 12:08 PM CST Patient calling to follow up on the below [employer] message. Patient continues to have a lot of dizzyness and neck pain. IT REVIEW ASSISTANT documented in this encounter Plan of Treatment Upcoming Encounters Date Type Department Care Team (Latest Contact Info) Description 01/02/2025 1:10 PM CDT Ancillary Procedure [address] [phone] Lauren Claudio PA-C [address] [place] [address] 01/17/2025 10:00 AM CDT Appointment [place] [address] [place] [address] Lauren Claudio PA-C [address] [place] [address] 04/16/2025 11:00 AM CDT Virtual Visit [facility] [address] [phone] Meredith Carrera PA-C [address] [place] [address] documented as of this encounter Visit Diagnoses [...] Total Score: 6 05/16/20 23 9:29 AM PERMIT REVIEW ASSISTANT documented as of this encounter Care Teams Vehicle Body Sander Relationship Specialty Start Date End Date Esha Grimm PA-C [address] [place] [address] PCP - General Family Medicine 05/04/23 Diana Desir, [facility] [address] [place] [address] Pharmacist Pharmacist 04/17/21 Rain Galaviz PA-C [address] [place] [address] [address] [place] [address] Physician Hob Machine Operator Dermatology 04/28/21 Tavia Wyatt MD [address] [place] [address] [address] [place] [address] Dermatology 07/14/21 Erica Farrell APRN CLOTH WASHER OPERATOR [address] [place] [address] Nurse Practitioner Cardiovascular Disease 09/09/21 Rich Barrett MD [address] [place] [address] Physician Ophthalmology 01/21/22 Neil Kent MD 500 [place], [place] 436945 Dermatology 02/24/22 Diana Desir, [facility] [address] [place], [place] 595[address]416 Assigned MTM Pharmacist 04/07/22 Livan Sharif MD [address] 4722900 [place], [place] 329075 Cardiovascular Disease 05/14/22 Catherine Cm MD [address] 6743000 [place], [place] 779535 Cardiovascular Disease 07/21/22 Valery Veronica, PAUcheC [address] [place] [address] 723925 Physician Hob Machine Operator Dermatology 07/21/22 Brea Quinn APRN CLOTH WASHER OPERATOR [address] [place] [address] 23028455 Nurse Practitioner Dermatology 09/21/22 Brea Quinn APRN CLOTH WASHER OPERATOR [address] [place] [address] [id number] Assigned Surgical Provider 10/09/22 05/01/24 [place] [address] 531107 Assigned Musculoskeletal Provider 10/09/22 05/01/24 Sydnie Martinez RN Personal Advocate & Liaison (PAL) Family Medicine 03/28/23 07/31/23 Alfonso Renteria MD [address] [facility] [address] [place] [address] Assigned Neuroscience Provider 04/02/23 09/29/24 Cheng Todd PA-C [address] [place] [address] Assigned PCP 04/30/23 07/15/23 Radha Lomeli, AUDIO VIDEO TECHNICIAN CLOTH WASHER OPERATOR [address] [facility] [address] [place], [place] 686165 Assigned Heart and Vascular Provider 05/28/23 11/29/24 Jelena David OD [address] [facility] [place] [address] Ophthalmology 06/15/23 Pao Joseph, VJ Personal Advocate & Liaison (PAL) Nurse 08/01/23 11/07/23 Esha Grimm PA-C [address] [place] [address] Assigned PCP 07/16/23 Valery Veronica PA-C [address] [place] [address] Physician Hob Machine Operator Dermatology 09/19/23 Rey Tay MD [address] [place] [address] 469025 Gastroenterology 09/20/23 Rocky Zepeda DO [address] [place] [address] 605805 Physician Gastroenterology 09/20/23 Philip Dumont MD 516 [place] [address] Physician Ophthalmology 09/22/23 Meredith Carrera PA-C [address] [place] [address] Assigned Gastroenterology Provider 11/01/23 Neil Kent MD [address] [address] Dermatology 11/02/23 [place] [address] [place] [address] 067847 Neurological Surgery 12/26/23 Audrey Waite PA-C [address] [place] [address] Physician Hob Machine Operator Dermatology 02/28/24 Valery Veronica PA-C 825583 [place], [place] [address] Physician Hob Machine Operator Dermatology 04/10/24 Herminia Hatch MD [address] [place] [address] [id number] Assigned Rheumatology Provider 07/02/24 Jelena David OD [address] [place] [address] [place] [address] Ophthalmology 08/30/24 Juan Pablo [place] [address] [place] [address] [place] [address] Assigned Neuroscience Provider 09/30/24 Maru Man PA-C [address] [place] [address] Physician Hob Machine Operator Dermatology 10/03/24 Maru Man PA-C [address] [place] [address] Physician Hob Machine Operator Dermatology 10/22/24 Jelena David OD [facility] [facility] [place] [address] Assigned Surgical Provider 10/31/24 Fabiano Correa NP [address] [place] [address] Assigned Heart and Vascular Provider 11/30/24 documented as of this encounter
--- OUTSIDE RECORDS SUMMARY | 2024-12-31 03:23 | XMS_ITS | Encounter Summary ---
Author Organization [place] Address [address] [place] [address] Care Team Providers Care Napkin Machine Operator Name Role Phone Diana Desir [facility] Unavailable Rain GaalvizC Unavailable Tavia Wyatt MD Unavailable [phone] Erica Farrell APRN RETREAD TECHNICIAN Unavailable Rich Barrett MD Unavailable [phone] Neil Kent MD Unavailable ThangKendrickDiana Stanislav [facility] Unavailable Livan Sharif MD Unavailable Catherine Cm MD Unavailable + Valery Veronica-C Unavailable [phone] Brea Quinn APRN RETREAD TECHNICIAN Unavailable Esha Grimm PA-C Primary Care Provider [phone] Jelena David OD Unavailable Esha Grimm PA-C Unavailable [phone] Valery Veronica PA-C Unavailable [phone] Rey Tay MD Unavailable DuaneRocky Unavailable Philip Dumont MD Unavailable Meredith Carrera PA-C Unavailable [phone] Neil Kent MD Unavailable Juan Pablo Emmanuel MD Unavailable Audrey Waite PA-C Unavailable Valery Veronica PA-C Unavailable Herminia Hatch MD Unavailable Jelena David OD Unavailable Juan Pablo Emmanuel MD Unavailable Maru Man PA-C Unavailable Maru Man PA-C Unavailable Jelena David OD Unavailable Fabiano Correa NP Unavailable Encounter Details Date Type Department Care Team (Late st Contact Info) Description 12/05/2024 Results Follow-Up [facility] [place] [address] [address] Amalia Zayas MD [address] [facility] [place] [address] Dx: Pneumonia of right lower lobe [...] exercise at this level? 20 min 05/07/2024 [place] Depression Scale Answer Date Recorded [place] Depression Score 5 01/14/2021 Last EPDS [...] PM CDT Legal Sex Female 4:13 AM BALLOON SANDER Gender Identity Female 03/02/2021 5:45 PM CDT Sexual Orientation Straight 02/28/2020 12 :51 AM CDT documented as of this encounter Plan of Treatment Upcoming Encounters Date Type Department Care Team (Latest Contact Info) Description 01/02/2025 1:10 PM CDT Ancillary Procedure [facility] [address] [place] [phone] Lauren Claudio PA-C [address] [place] [address] [id number] 01/17/2025 10:00 AM CDT Appointment [facility] Respiratory [address] [place] [address] Lauren Claudio PA-C [address] [place], [place] [phone] 04/16/2025 11:00 AM CDT Virtual Visit [facility] [address] 4th [place] [phone] Meredith Carrera PA-C [address] [place] [address] documented as of this encounter Visit Diagnoses Diagnosis Pneumonia of right lower lobe due to infectious organism- Primary documented in this encounter Additional Health Concerns Assessment Noted Time PHQ-9 Depression Total Score: 5 10/25/19 25 10:38 AM CDT documented as of this encounter Care Teams Napkin Machine Operator Relationship Specialty Start Date End Date Esha Grimm PA-C [address] [place] [address] PCP - General Family Medicine 05/04/23 Diana Desir, [facility] 30[address] [place] [address] Pharmacist Pharmacist 04/17/21 Rain Galaviz PA-C [address] [place] [address] [address] [facility] [address] Physician Senior Wealth Advisor Dermatology 04/28/21 Tavia Wyatt MD [address] [place] [address] [address] [place] [address] Dermatology 07/14/21 Erica Farrell APRN RETREAD TECHNICIAN [address] [place] 782515 Nurse Practitioner Cardiovascular Disease 09/09/21 Rich Barrett MD [address] [place] 179325 Physician Ophthalmology 01/21/22 Neil Kent MD 500 [place], [place] 515655 Dermatology 02/24/22 [facility] 30[address] [place], [place] 972336 Assigned [facility] Pharmacist 04/07/22 Livan Sharif MD [address] [place] [address] Cardiovascular Disease 05/14/22 Catherine Cm MD [address] [place] 836035 Cardiovascular Disease 07/21/22 Valery Veronica PA-C [address] [place] [address] 521035 Physician Senior Wealth Advisor Dermatology 07/21/22 Brea Quinn APRN RETREAD TECHNICIAN 500 [place] [address] Nurse Practitioner Dermatology 09/21/22 [place] [address] [place] [address] [place] [address] MD Ophthalmology 06/15/23 Esha Grimm PA-C [address] [place] [address] Assigned PCP 07/16/23 Valery Veronica PA-C [address] [place] [address] Physician Senior Wealth Advisor Dermatology 09/19/23 Rey Tay MD [address] [place] [address] 567705 MD Gastroenterology 09/20/23 Rocky Zepeda DO [address] [place] [address] 817265 Physician Gastroenterology 09/20/23 Philip Dumont MD [address] [place] [address] 596185 Physician Ophthalmology 09/22/23 Meredith Carrera PA-C [address] [place] [address] 063275 Assigned Gastroenterology Provider 11/01/23 Neil Kent MD [address] [place] [address] 880530 Dermatology 11/02/23 [place] [address] [place] [address] Neurological Surgery 12/26/23 Audrey Waite PA-C 500 [place] [address] Physician Senior Wealth Advisor Dermatology 02/28/24 Valery Veronica PA-C [address] [place] [address] Physician Senior Wealth Advisor Dermatology 04/10/24 Herminia Hatch MD [address] [place] [address] Assigned Rheumatology Provider 07/02/24 Jelena David OD [address] [place] [address] [place] [address] Ophthalmology 08/30/24 [place] [address] [place] [address] Assigned Neuroscience Provider 09/30/24 Maru Man PA-C [address] [place] [address] Physician Senior Wealth Advisor Dermatology 10/03/24 Maru Man PA-C [address] [place] [address] Physician Senior Wealth Advisor Dermatology 10/22/24 Jelena David OD [address] [place] [address] [place] [address] Assigned Surgical Provider 10/31/24 Fabiano Correa, BENEFITS ASSISTANT [address] [place] [address] Assigned Heart and Vascular Provider 11/30/24 documented as of this encounter
--- OUTSIDE RECORDS SUMMARY | 2024-12-31 03:23 | XMS_ITS | Encounter Summary ---
Author Organization [facility] Address [address] [place] [address] Care Team Providers Care Manager Helpdesk Name Role Phone Diana Desir [facility] Unavailable Rain Galaviz PA-C Unavailable [phone] aTvia Wyatt MD Unavailable [phone] Erica Farrell APRN LEGUILLON DEBEADER Unavailable Rich Barrett MD Unavailable [phone] Neil Kent MD Unavailable Diana Desir [facility] Unavailable Livan Sharif MD Unavailable Catherine Cm MD Unavailable + Valery Veronica PA-C Unavailable Brea Quinn AUTO INSPECTION SPECIALIST LEGUILLON DEBEADER Unavailable Brea Quinn AUTO INSPECTION SPECIALIST LEGUILLON DEBEADER Unavailable [phone] Jose Francisco Johnson MD Unavailable Alfonso Renteria MD Unavailable [phone] Esha Grimm PA-C Primary Care Provider Radha Lomeli APRN LEGUILLON DEBEADER Unavailable Jelena David OD Unavailable [phone] Pao Joseph RN Unavailable Unavailable Esha Grimm [...] Team (Late st Contact Info) Description 08/01/2023 [facility] Medical Advice [facility] [id number] [place] [phone] Esha Grimm PA-C [address] [place] [address] Outreach Social History Tobacco Use [...] Score 0 06/20/2023 [facility] - Occupational [...] exercise at this level? 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 See pt's Mychart messages. Routed to PCP Pao Marcos RN PAL (Patient Advocate Liaison) [facility] [employer] documented in this encounter Plan of Treatment Upcoming Encounters Date Type Department Care Team (Latest Contact Info) Description 01/02/2025 1:10 PM CDT Ancillary Procedure [address] [phone] Lauren Claudio PA-C [address] [place] [phone] 01/17/2025 10:00 AM CDT Appointment [place] [address] [place] [phone] Lauren Claudio PA-C [address] [place] [address] 04/16/2025 11:00 AM CDT Virtual Visit [facility] [address] [phone] Meredith Carrera PA-C [address] [place] [address] 274885 documented as of this encounter Visit Diagnoses [...] Total Score: 4 06/20/20 8:40 AM [employer] documented as of this encounter Care Teams Manager Helpdesk Relationship Specialty Start Date End Date Esha Grimm PA-C [address] [place] [address] PCP - General Family Medicine 05/04/23 [facility] [address] [place] [address] Pharmacist Pharmacist 04/17/21 Rain Galaviz PA-C [address] [place] [address] [address] [place] [address] Physician Sail Finisher Hand Dermatology 04/28/21 Tavia Wyatt MD [address] [place] [address] [address] [place] [address] Dermatology 07/14/21 Erica Farrell APRN LEGUILLON DEBEADER [address] [place] [address] Nurse Practitioner Cardiovascular Disease 09/09/21 Rich Barrett MD [address] [place] [address] Physician Ophthalmology 01/21/22 Neil Kent MD [address] [place] [address] Dermatology 02/24/22 Diana Desir, [facility] [address] [place] [address] Assigned [place] Pharmacist 04/07/22 Livan Sharif MD [address] [facility] [address] [place] [address] Cardiovascular Disease 05/14/22 Catherine Cm MD [address] [facility] [address] [facility] [address] [place] [address] Cardiovascular Disease 07/21/22 Valery Veronica, PA-C [address] [place] [address] Physician Sail Finisher Hand Dermatology 07/21/22 Brea Quinn APRN [employer]LLON DEBEADER [address] [place], [place] 0[address] Nurse Practitioner Dermatology 09/21/22 Brea Quinn APRN LEGUILLON DEBEADER [address] [place] [address] Assigned Surgical Provider 10/09/22 05/01/24 [place] [address] [facility] [address] [place], [place] 469847 Assigned Musculoskeletal Provider 10/09/22 05/01/24 Alfonso Renteria MD [address] [facility] [address] [place] [address] Assigned Neuroscience Provider 04/02/23 09/29/24 Radha Lomeli APRN LEGUILLON DEBEADER [address] [place] [address] Assigned Heart and Vascular Provider 05/28/23 11/29/24 Jelena David, SONJA [address] [place] [address] Ophthalmology 06/15/23 Pao Joseph, VJ Personal Advocate & Liaison (PAL) Nurse 08/01/23 11/07/23 Esha Grimm PA-C [address] [place] [phone] Assigned PCP 07/16/23 Valery Veronica PA-C [address] [place] [address] 406405 Physician Sail Finisher Hand Dermatology 09/19/23 Rey Tay MD [address] [place] [address] 812305 Gastroenterology 09/20/23 Rocky Zepeda DO [address] [place] [address] Physician Gastroenterology 09/20/23 Philip Dumont MD [address] [place] [address] Physician Ophthalmology 09/22/23 Meredith Carrera PA-C [address] [place] [address] Assigned Gastroenterology Provider 11/01/23 Neil Kent MD [address] [place] [address] Dermatology 11/02/23 [place] [address] [place] [address] Neurological Surgery 12/26/23 Audrey Waite PA-C [address] [place] [address] Physician Sail Finisher Hand Dermatology 02/28/24 Valery Veronica PA-C [address] [place] [address] Physician Sail Finisher Hand Dermatology 04/10/24 Herminia Hatch MD [address] [place] [address] [phone] Assigned Rheumatology Provider 07/02/24 Jelena David OD [address] [place] [address] [place] [address] Ophthalmology 08/30/24 [place] [address] [facility] [place] [address] Assigned Neuroscience Provider 09/30/24 Maru Man PA-C [address] [place] [address] Physician Sail Finisher Hand Dermatology 10/03/24 Maru Man PA-C [address] [place] [address] Physician Sail Finisher Hand Dermatology 10/22/24 Jelena David OD [address] [facility] [place] [address] Assigned Surgical Provider 10/31/24 Fabiano Correa NP [address] [place] [address] Assigned Heart and Vascular Provider 11/30/24 documented as of this encounter
--- OUTSIDE RECORDS SUMMARY | 2024-12-31 03:23 | XMS_ITS | Encounter Summary ---
Author Organization [facility] Address [address] [place] [address] Care Team Providers Care Feed Management Advisor Name Role Phone Diana Desir [facility] Unavailable Rain GalavizC Unavailable [phone] Tavia Wyatt MD Unavailable Erica Farrell APRN MALT LIQUORS SALES SUPERVISOR Unavailable Rich Barrett MD Unavailable [phone] Neil Kent MD Unavailable DesirKendrickDiana Stanislav [facility] Unavailable [phone] Livan Sharif MD Unavailable Catherine Cm MD Unavailable + Valery Veronica-C Unavailable Brea Quinn SINTERING PRESS OPERATOR MALT LIQUORS SALES SUPERVISOR Unavailable [phone] Alfonso Renteria MD Unavailable [phone] Esha GrimmC Primary Care Provider Radha Lomeli APRN MALT [employer]QU[employer] SALES SUPERVISOR Unavailable Jelena David OD Unavailable Alfa, Esha M PA-C Unavailable [phone] Valery Veronica PA-C Unavailable Rey Tay MD Unavailable Rocky Zepeda DO Unavailable Philip Dumont MD Unavailable Meredith Carrera PA-C Unavailable [phone] Neil Kent MD Unavailable Juan Pablo Emmanuel MD Unavailable Audrey [place] PA-C Unavailable Valery Veronica PA-C Unavailable [phone] Herminia Hatch MD Unavailable Jelena David OD Unavailable Juan Pablo Emmanuel MD Unavailable Maru Man PA-C Unavailable Maru Man PA-C Unavailable Jelena David OD Unavailable [phone] Fabiano Correa NP Unavailable Encounter Details Date Type Department Care Team (Late st Contact Info) Description 06/05/2024 MyC Medical Advice [facility] [place] [address] [place] [address] Herminia Hatch MD [address] [place], [place] [phone] Social History Tobacco Use Types Packs/Day Years [...] 02/07/2024 [facility] of Occupat [...] exercise at this level? 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 Gender Identity Female 03/02/2021 5:45 PM CDT Sexual Orientation Straight 02/28/2020 12 :51 AM CDT documented as of this encounter Plan of Treatment Upcoming Encounters Date Type Department Care Team (Latest Contact Info) Description 01/02/2025 1:10 PM CDT Ancillary Procedure [facility] [address] [place] [phone] Lauren Claudio PA-C [address] [place] [address] 01/17/2025 10:00 AM CDT Appointment [facility] Respiratory [address] [facility] [place] [phone] Lauren Claudio PA-C [address] [place] [address] 04/16/2025 11:00 AM CDT Virtual Visit [facility] [address] 4th [place] [phone] Meredith Carrera PA-C [address] [place] [address] 185785 documented as of this encounter Visit Diagnoses [...] documented as of this encounter Care Teams Feed Management Advisor Relationship Specialty Start Date End Date Esha Grimm PA-C [address] [place] [phone] PCP - General Family Medicine 05/04/23 Diana Desir, [facility] [address] [place] [address] Pharmacist Pharmacist 04/17/21 Rain Galaviz PA-C [address] [place] [address] [address] [place] [address] Physician Medical Center Manager Dermatology 04/28/21 Tavia Wyatt MD [address] [place] [address] [address] [place] [address] Dermatology 07/14/21 Erica Farrell APRN MALT [employer]QUORS SALES SUPERVISOR [address] [place] [phone] Nurse Practitioner Cardiovascular Disease 09/09/21 Rich Barrett MD [address] [place] [address] Physician Ophthalmology 01/21/22 Neil Kent MD [address] [place], [place] 785135 Dermatology 02/24/22 Diana Desir, [facility] [address] [place], [place] 897506 Assigned MTM Pharmacist 04/07/22 Livan Sharif MD [address] [place] [address] Cardiovascular Disease 05/14/22 Catherine Cm MD [address] [place] [address] Cardiovascular Disease 07/21/22 Valery Veronica PA-C [address] [place] [address] Physician Medical Center Manager Dermatology 07/21/22 Brea Quinn APRN [employer]QU[employer] SALES SUPERVISOR [address] [place] [address] Nurse Practitioner Dermatology 09/21/22 Alfonso Renteria MD [address] [facility] [address] [place], [place] 566896 Assigned Neuroscience Provider 04/02/23 09/29/24 Radha Lomeli APRN MALT LIQUORS SALES SUPERVISOR [address] [facility] [address] [place], [place] 647155 Assigned Heart and Vascular Provider 05/28/23 11/29/[address] [facility] [facility] [facility] [place] [address] Ophthalmology 06/15/23 Esha Grimm PA-C [address] [place] [phone] Assigned PCP 07/16/23 Valery Veronica PA-C [address] [place] [address] Physician Medical Center Manager Dermatology 09/19/23 Rey Tay MD [address] [place] [address] Gastroenterology 09/20/23 Rocky Zepeda DO [address] [place] [address] Physician Gastroenterology 09/20/23 Philip Dumont MD [address] [place] [address] Physician Ophthalmology 09/22/23 Meredith Carrera PA-C [address] [place] [address] Assigned Gastroenterology Provider 11/01/23 Neil Kent MD [address] [place] [address] MD Dermatology 11/02/23 [place] [address] [place] [address] Neurological Surgery 12/26/23 Audrey Waite PA-C [address] [place] [address] Physician Medical Center Manager Dermatology 02/28/24 Valery Veronica PA-C [address] [place] [address] Physician Medical Center Manager Dermatology 04/10/24 Herminia Hatch MD [facility] [place], [place] [phone] Assigned Rheumatology Provider 07/02/24 [place] [address] [place] [address] [place] [address] Ophthalmology 08/30/24 [place] [address] [address] [place] [address] Assigned Neuroscience Provider 09/30/24 Maru Man PA-C [address] [place] [address] Physician Medical Center Manager Dermatology 10/03/24 Maru Man PA-C [address] [place] [address] Physician Medical Center Manager Dermatology 10/22/24 Jelena David OD [address] [facility] [place] [address] Assigned Surgical Provider 10/31/24 Fabiano Correa NP [address] [place] [address] Assigned Heart and Vascular Provider 11/30/24 documented as of this encounter
== END 2024-12-31 03:21 | disposition home or self-care (01) ==
PROVIDERS: Emergency Provider Family Medicine
DX: R00.2 Palpitations (principal)
CPT/HCPCS: 93005; 99283

== ENCOUNTER 2025-04-26 21:29 | Emergency (ER) | payer MEDICAID, SELFPAY ==
--- OUTSIDE RECORDS SUMMARY | 2025-03-13 11:00 | XMS_ITS | Encounter Summary ---
Author Organization [facility] Address [address] [place] [address] Care Team Providers Care Manager Statistical Name Role Phone Diana Desir [facility] Unavailable Rain GalavizC Unavailable Tavia Wyatt MD Unavailable [phone] Erica Farrell APRN MUSIC JOURNALIST Unavailable Rich Barrett MD Unavailable [phone] Neil Kent MD Unavailable ThangKednrickDiana Stanislav [facility] Unavailable Livan Sharif MD Unavailable Catherine Cm MD Unavailable + Valery Veronica-C Unavailable [phone] Brea Quinn APRN MUSIC JOURNALIST Unavailable Esha Grimm PA-C Primary Care Provider Jelena David OD Unavailable Esha Grimm PA-C Unavailable [phone] Valery Veronica PA-C Unavailable Rey Tay MD Unavailable Duane Rocky Unavailable Philip Dumont MD Unavailable [phone] Meredith CarreraC Unavailable [phone] Neil Kent MD Unavailable Juan Pablo Emmanuel MD Unavailable Audrey WaiteC Unavailable [phone] Valery VeronicaC Unavailable Herminia Hatch MD Unavailable Jelena David OD Unavailable [phone] Juan Pablo Emmanuel MD Unavailable [phone] Maru Man PA-C Unavailable [phone] Maru Man PA-C Unavailable [phone] Jelena David OD Unavailable Fabiano Correa NP Unavailable Walter Nowak MD Unavailable Liset Márquez MD Unavailable Reason for Referral * Consultation (Routine: Next available opening) - Pending Review Specialty Diagnoses / Procedures Referred By Qian mayers Referred To Contact Urology Diagnoses Pelvic pain in female Urinary frequency Lauren Claudio PA-C [address] [place] [address] Phone: tel: fax: Referral ID Status Reason Start Date Expiration Date V isits Requested Visits Authorized [id number] Pending Review 03/13/2025 03/13/2026 1 1 Question Answer Referral Type: Uro/Forest Patrolman Reason for Referral: Pelvic Pain/Bladder Pain Syndrome Patient Scheduling Instructions: [facility] will call you to coordinate care as prescribed your provider. If you don t hear from a escrow representative within 2 business days, please call . Comments Please be aware that coverage of these services is subject to the terms and limitations of your health insurance plan. Call member services at your health plan with any benefit or coverage questions. [employer] [facility] will call you to coordinate care as prescribed your provider. If you don t hear from a escrow representative within 2 business days, please call . 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 20 min 05/07/2024 Gibbon Depression Scale Answer Date Recorded Gibbon Depression Score 5 01/14/2021 Last EPDS Self [...] PM CDT Legal Sex Female 4:13 AM FINANCE ATTORNEY Gender Identity Female 03/02/2021 5:45 PM CDT Sexual Orientation Straight 02/28/2020 12 :51 AM CDT documented as of this encounter Last Filed Vital Signs Vital Sign Reading Time Taken Comments Blood Pressure 115/57 03/13/2025 10:47 AM CDT Pulse 77 03/13/2025 10:47 AM CDT Temperature 36.6 C (97.8 F) 03/13/2025 10:47 AM CDT Respiratory Rate 18 03/13/2025 10:47 AM CDT Oxygen Saturation 100% 03/13/2025 10:47 AM CDT Inhaled Oxygen Concentration - - Weight 92.7 kg (204 lb 6.4 oz) 03/13/2025 10:47 AM CDT Height 167.6 cm (5' 6) 03/13/2025 10:47 AM CDT Body Mass Index 32.99 03/13/2025 10:47 AM CDT documented in this encounter Progress Notes * Lauren Claudio PA-C - 03/13/2025 11:00 AM CDT Assessment & Plan Vaginal discharge Testing obtained today. Pending results will treat. Recurrent yeast and BV infections but has seen RENAL TECHNICIAN previously. - HCG Qual, Urine ([id number]); Future - Multiplex Vaginal Panel by PCR; Future - Multiplex Vaginal Panel by PCR - Chlamydia trachomatis/Neisseria gonorrhoeae by PCR (cervix); Future - Chlamydia trachomatis/Neisseria gonorrhoeae by PCR (cervix) - HCG Qual, Urine ([id number]) Pelvic pain in female Perhaps interstitial cystitis (having mix of urinary symptoms and pelvic pain). Referral to Uro-GYNprovided. - Adult Uro/Forest Patrolman Aircraft Delivery Checker Referral; Future - UA Macroscopic with reflex to Microscopic and Culture - Lab Collect; Future - UA Macroscopic with reflex to Microscopic and Culture - Lab Collect Urinary frequency UA negative for infection today. - Adult Uro/Forest Patrolman Aircraft Delivery Checker Referral; Future - UA Macroscopic with reflex to Microscopic and Culture - Lab Collect; Future - UA Macroscopic with reflex to Microscopic and Culture - Lab Collect Episodic tension-type headache, not intractable Patient reports a tension headache that has some migraine like features at times. Continue to monitor. Nausea Associated with headaches. Photophobia Associated with headaches. Lymphadenopathy Lymph node along the right inferior inguinal fold. Tender, mobile and small. If growing consider ultrasound imaging. 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 Patient interested in possible removal. She will check with herGyn team to see if they do this. Otherwise can consider dermatology or general surgery. Review of external notes as documented elsewhere in note Review of the result(s) of each unique test - previous wet prep and vaginal testing Ordering of each unique test 40 minutes spent by me on the [...] old, presenting for the following health issues: Headache and Vaginal Problem 03/13/2025 10:48 AM Additional Questions Roomed by Melody Accompanied by Self Headache Vaginal Problem History of Present Illness Headaches: Since the patient's last clinic visit, headaches are: no change The patient is getting headaches: On and off, but I beleive its from my neck or eye strain but the last fee days have been more intense She is able to do normal daily activities when she has a migraine. The patient is taking the following rescue/relief medications: Ibuprofen (Advil, Motrin) and Tylenol Patient states The relief is inconsistent from the rescue/relief medications. The patient is taking the following medications to prevent migraines: No medications to prevent migraines In the past 4 weeks, the patient has gone to an Urgent Care or Emergency Room 0 times times due to headaches. Reason for visit: New headache, fatigue, body aches; breast pain Symptom onset: 1-3 days ago Symptom intensity: Moderate Symptom progression: Staying the same Had these symptoms before: Yes She is taking medications regularly. Vaginal Symptoms Onset/Duration: since giving (years) but started 1 weeks ago, had 2 cyst (perineal area). Hastried popping one. Description: Vaginal Discharge: creamy Itching (Pruritis): No Burning sensation: YES- after intercourse Odor: YES, almost like a BV odor Accompanying Signs & Symptoms: Urinary symptoms: No Abdominal pain: YES- pressure Fever: YES- lowgrade History: Sexually active: YES New Partner: No Possibility of : YES- unsure since she has IUD Recent antibiotic use: No Previous vaginitis issues: YES- Precipitating or alleviating factors: None Therapies tried and outcome: Concern - Headaches Onset: on and off for a while Description: neck headache, feels like a tension headache. Sensitive to light Intensity: moderate Progression of Symptoms: same Accompanying Signs & Symptoms: light sensitivity and nausea Previous history of similar problem: yes Precipitating factors: Worsened by: lights or bending over causes tension and pressure Alleviating factors: Improved by: no lights, Tylenol or ibuprofen, helps when she wears her glasses Therapies tried and outcome: None Objective BP 115/57 (BP Location: Right arm, Patient Position: Sitting, Cuff Size: Adult Regular) Pulse 77 Temp 97.8 ??F (36.6 ??C) (Oral) Resp 18 Ht 1.676 m (5' 6) Wt 92.7 kg (204 lb 6.4 oz) [id number]% BMI 32.99 kg/m?? Body mass index is 32.99 kg/m??. Physical Exam GENERAL: No acute distress HEENT: Normocephalic AXILLA: No obvious lymphadenopathy in bilateral axilla. PELVIC: External genitalia normal in appearance without lesions. Moderate amount of white and cleardischarge in the vaginal vault. Cervix without obvious lesions and no bleeding, IUD strings visualized. Left perineal/inferior inguinal area with small raised papule, slightly tender to touch. Right perineal/inferior inguinal area with slightly raised skin tags and small mobile but tender mass underneath the skin. NEURO: Alert and non-focal Recent Results (from the past 24 hours) HCG Qual, Urine ([id number]) Result Value Ref Range hCG Urine Qualitative Negative Negative UA Macroscopic with reflex to Microscopic and Culture - Lab Collect Specimen: Urine, Clean Catch Result Value Ref Range Color Urine Yellow Colorless, Straw, Light Yellow, Yellow Appearance Urine Clear Clear Glucose Urine Negative Negative mg/dL Bilirubin Urine Negative Negative Ketones Urine Negative Negative mg/dL Specific Eureka Urine 1.015 1.003 - 1.035 Blood Urine Negative Negative pH Urine 6.0 5.0 - 7.0 Protein Albumin Urine Negative Negative mg/dL Urobilinogen Urine 0.2 0.2, 1.0 E.U./dL Nitrite Urine Negative Negative Leukocyte Esterase Urine Negative Negative Narrative Microscopic not indicated Signed Electronically by: Lauren Claudio PA-C documented in this encounter Plan of Treatment Upcoming Encounters Date Type Department Care Team (Late st Contact Info) Description 04/30/2025 10:30 AM CDT Office Visit [facility] [address] [place] [address] Liset Márquez MD [address] [place] [address] 05/30/2025 2:45 PM FINANCE ATTORNEY Office Visit [address] [place] [phone] Fabiano Correa NP [address] [place], [place] [address] Walter Nowak MD [address] [place] [address] 08/07/2025 8:15 AM FINANCE ATTORNEY [facility] [address] [facility] [address] [place] [phone] Lucien Grimes MD [address] [place] [address] 08/21/2025 9:00 AM FINANCE ATTORNEY Office Visit [facility] [place] [address] [address] Neil Kent MD [address] [place], [place] [address] 10/09/2025 10:45 AM CDT Virtual Visit [facility] [place] [address] [place] [address] 4th [place] [phone] Meredith Carrera PA-C [address] [place] [phone] Scheduled Referrals Name Type Priority Associated Diagnoses Orde r Schedule Adult Uro/Forest Patrolman Aircraft Delivery Checker Referral Referral Routine: Next available opening Pelvic pain in female Urinary frequency Expected: 03/13/2025 (Approximate), Expires: 03/13/2026 documented as of this encounter Procedures Procedure Name Priority Date/Time Associated Diagnosis Comments HCG QUALITATIVE URINE Routine 03/13/2025 11:50 AM CDT Vaginal discharge UA MACROSCOPIC WITH REFLEX TO MICRO AND CULTURE Routine 03/13/2025 11:50 AM CDT Pelvic pain in female Urinary frequency MULTIPLEX VAGINAL PANEL BY PCR Routine 03/13/2025 11:49 AM CDT Vaginal discharge CHLAMYDIA TRACHOMATIS/NEISSERI A GONORRHOEAE BY PCR Routine 03/13/2025 11:35 AM CDT Vaginal discharge documented in this encounter Results * UA Macroscopic with reflex to Microscopic and Culture - Lab Collect (03/13/2025 11:50 AM CDT) Color Urine Yellow Colorless, Straw, Light Yellow, Yellow 03/13/2025 11:54 AM CDT [facility] Appearance Urine Clear Clear 03/13/20 11:54 AM CDT [facility] Glucose Urine Negative Negative mg/dL 03/13/2025 11:54 AM CDT [facility] Bilirubin Urine Negative Negative 11:54 AM CDT [facility] Ketones Urine Negative Negative mg/dL 03/13/2025 11:54 AM CDT [facility] Specific Eureka Urine 1.015 1.003 - 1.035 03/13/2025 11:54 AM CDT [facility] Blood Urine Negative Negative 03/13/2025 11:54 AM CDT [facility] pH Urine 6.0 5.0 - 7.0 03/13/2025 11:54 AM CDT [facility] Protein Albumin Urine Negative Negative mg/dL 03/13/2025 11:54 AM CDT [facility] Urobilinogen Urine 0.2 0.2, 1.0 E.U./dL 03/13/2025 11:54 AM CDT [facility] Nitrite Urine Negative Negative 03/13/2025 11:54 AM CDT [facility] Leukocyte Esterase Urine Negative Negative 03/13/2025 11:54 AM CDT [facility] Urine URINE SPECIMEN OBTAINED BY CLEAN CATCH PROCEDURE / Unknown Non-blood Collection / Unknown 03/13/2025 11:50 AM CDT 03/13/2025 11:50 AM CDT Narrative [facility] - 03/13/2025 11:54 AM CDT Microscopic not indicated us Lauren Claudio PA-C LAB - URINE ORDERABLES Fin al Result [facility] [address] [facility] (no room number, 1st floor of clinic) [place] [address], [place] * HCG Qual, Urine ([id number]) (03/13/2025 11:50 AM CDT) hCG Urine Qualitative Negative Negative REINA 03/13/2025 11:55 AM CDT [facility] Comment:This test is for scr eening purposes. Results should be interpreted along with the clinical picture. Confirmation testing is available if warranted by ordering [id number], HCG Quantitative . Urine URINE SPECIMEN OBTAINED BY CLEAN CATCH PROCEDURE / Unknown Non-blood Collection / Unknown 03/13/2025 11:50 AM CDT 03/13/2025 11:50 AM CDT us Lauren Claudio PA-C LAB - URINE ORDERABLES Fin al Result [facility] [address] [facility] (no room number, 1st floor of clinic) [place] [address], [place] * (ABNORMAL) Multiplex Vaginal Panel by PCR (03/13/2025 11:49 AM CDT) Bacterial Vaginosis Organism DNA Negative Negative 03/13/2025 9:47 PM CDT [facility] Comment: Indicator DNA target(s) related to bacterial vaginosis organisms is/are not detected. Organisms associated with bacterial vaginosis that are targeted in this assay include Atopobium spp., Bacterial Vaginosis-Associated Bacterium-2, and Megasphaera-1. Detected organisms are not reported individually. Pily Group DNA Detected(A) Not Detected 03/13/2025 9:47 PM CDT [facility] Comment: Pily group species detected by this target include C. albicans, C. tropicalis, C. parapsilosis, C. dubliniensis. Species are not differenetiated. A Pily group positive result can be due to one or multiple Pily species. Pily glabrata / Pily krusei DNA Not Detected Not Detected 03/13/2025 9:47 PM CDT [facility] Trichomonas vaginalis DNA Not Detected Not Detected 03/13/2025 9:47 PM CDT [facility] Swab VAGINAL STRUCTURE / Unknown Non-blood Collection / Unknown 03/13/2025 11:49 AM CDT 03/13/2025 11:49 AM CDT Narrative [facility] - 03/13/2025 9:47 PM CDT The Xpert Xpress MVP test, performed on the [employer], is an automated, qualitative in [...] patient information to determine the disease status. Lauren Claudio PA-C LAB - MICRO GENERAL ORDERA BLES Final Result [facility] Inf. Diseases Diag. Lab [address] [facility], [address] [place] [address] * Chlamydia trachomatis/Neisseria gonorrhoeae by PCR (cervix) (03/13/2025 11:35 AM CDT) Chlamydia Trachomatis Negative Negative 03/14/2025 1:33 PM CDT [facility] Comment: Negative for C. trachomatis rRNA by sustainability communicator mediated amplification. A negative result by sustainability communicator mediated amplification does not preclude the presence of infection because results are dependent on proper and adequate collection, absence of inhibitors and sufficient rRNA to be detected. Neisseria gonorrhoeae Negative Negative 03/14/2025 1:33 PM CDT [facility] Comment:Negative for N. gono rrhoeae rRNA by sustainability communicator mediated amplification. A negative result by sustainability communicator mediated amplification does not preclude the presence of C. trachomatis infection because results are dependent on proper and adequate collection, absence of inhibitors and sufficient rRNA to be detected. CTNG Specimen Source Cervix 03/14/2025 1:33 PM CDT [facility] Swab CERVIX UTERI STRUCTURE / Unknown Non-blood Collection / Unknown 03/13/2025 11:35 AM CDT 03/13/2025 11:49 AM CDT us Lauren Claudio PA-C LAB - MICRO GENERAL ORDERA BLES Final Result [facility] Inf. Diseases Diag. 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 documented in this encounter Additional Health Concerns Assessment Noted Time PHQ-9 Depression Total Score: 5 10/25/19 25 10:38 AM CDT documented as of this encounter Care Teams Manager Statistical Relationship Specialty Start Date End Date Esha Grimm PA-C [address] [place] [phone] PCP - General Family Medicine 05/04/23 Diana Desir, [facility] [address] [place] [address] Pharmacist Pharmacist 04/17/21 Rain Galaviz PA-C [address] [place] [address] [address] [place] [address] Physician Protective Signal Repairer Dermatology 04/28/21 Tavia Wyatt MD [address] [place] [address] [place] [address] Dermatology 07/14/21 Erica Farrell GLASS DECORATOR MUSIC JOURNALIST [address] [place] [phone] Nurse Practitioner Cardiovascular Disease 09/09/21 Rich Barrett MD [address] [place] [address] Physician Ophthalmology 01/21/22 Neil Kent MD [address] [place], [place] [phone] Dermatology 02/24/22 Diana Desir, [facility] [address] [place], [place] [address] Assigned [place] Pharmacist 04/07/22 Livan Sharif MD [address] [place] [address] Cardiovascular Disease 05/14/22 Catherine Cm MD [address] [place] [address] Cardiovascular Disease 07/21/22 Valery Veronica, PA-C [address] [place], [place] [address] Physician Protective Signal Repairer Dermatology 07/21/22 Brea Quinn APRN MUSIC JOURNALIST [address] [place], [place] [address] Nurse Practitioner Dermatology 09/21/22 Jelena David OD [address] [facility] [place] [address] MD Ophthalmology 06/15/23 Esha rGimm PA-C [address] [place] [phone] Assigned PCP 07/16/23 Valery Veronica PA-C [address] [place] [address] Physician Protective Signal Repairer Dermatology 09/19/23 Rey Tay MD [address] [place] [address] MD Gastroenterology 09/20/23 Rocky Zepeda DO [address] [place] [address] Physician Gastroenterology 09/20/23 Philip Dumont MD [address] [place] [phone] Physician Ophthalmology 09/22/23 Meredith Carrera PA-C [address] [place] [address] Assigned Gastroenterology Provider 11/01/23 Neil Kent MD [address] [place] [address]478[address] Dermatology 11/02/23 [place] [address] [place] [address] Neurological Surgery 12/26/23 Audrey Waite PA-C [address] [place] [address] Physician Protective Signal Repairer Dermatology 02/28/24 Valery Veronica PA-C [id number] [place] [address] Physician Protective Signal Repairer Dermatology 04/10/24 Herminia Hatch MD [address] [place] [address] Assigned Rheumatology Provider 07/02/24 Jelena David OD [address] [place] [address] [place] [address] Ophthalmology 08/30/24 [place] [address] [place] [address] Assigned Neuroscience Provider 09/30/24 Maru Man PA-C [address] [place] [address] Physician Protective Signal Repairer Dermatology 10/03/24 Maru Man PA-C [address] [place] [address] Physician Protective Signal Repairer Dermatology 10/22/24 Jelena David OD [address] [place] [address] [place] [address] Assigned Surgical Provider 10/31/24 Fabiano Correa, ACTIVATED SLUDGE ATTENDANT [address] [place] [address] Assigned Heart and Vascular Provider 11/30/24 Walter Nowak MD [address] [place] [address] Physician Clinical Cardiac Electrophysiology 03/01/25 Liset Márquez MD [address] [address] jet dyeing machine operator 03/13/25 documented as of this encounter
--- OUTSIDE RECORDS SUMMARY | 2025-03-19 17:15 | XMS_ITS | Encounter Summary ---
Author Organization [facility] Address [address] [place] [address] Care Team Providers Care Jeep Driver Name Role Phone Diana Desir [facility] Unavailable Rain GalavizC Unavailable Tavia Wyatt MD Unavailable [phone] Erica Farrell APRN ACREAGE REPORTER Unavailable Rich Barrett MD Unavailable [phone] Neil Kent MD Unavailable ThangKendrickIdana Stanislav [facility] Unavailable [phone] Livan Sharif MD Unavailable Catherine Cm MD Unavailable + Valery Veronica-C Unavailable Brea Quinn APRN ACREAGE REPORTER Unavailable [phone] Esha Grimm PA-C Primary Care Provider Jelena David OD Unavailable Esha Grimm PA-C Unavailable [phone] Valery Veronica PA-C Unavailable [phone] Rey Tay MD Unavailable DuaneRocky Unavailable Philip Dumont MD Unavailable [phone] Meredith Carrera PA-C Unavailable Neil Kent MD Unavailable Juan Pablo Emmanuel MD Unavailable Audery Waite PA-C Unavailable Valery Veronica PA-C Unavailable Herminia Hatch MD Unavailable Jelena David OD Unavailable Juan Pablo Emmanuel MD Unavailable Maru Man PA-C Unavailable Maru Man PA-C Unavailable Jelena David OD Unavailable Fabiano Correa NP Unavailable Walter Nowak MD Unavailable Liset Márquez MD Unavailable Reason for Visit * Reason Comments Urgent Care Cyst on inner left t high- will be back intermittently- has an appointment to be seen for this on Tuesday to have it lanced at OBGYN, nausea, migraine, hot flashes, sweating within last couple of days- no fever, took tylenol for headache, head feels heavy. Had some burning with intercourse yesterday is on medication for a yeast infection- was given last week. Neck feels sore. Encounter Details Date Type Department Care Team (Late st Contact Info) Description 03/19/2025 5:15 PM CDT Office Visit [facility] [place] [address] [place] [address] Amalia Zayas MD [address] [facility] [place] [address] Skin pustule (Primary Dx); Medication side effects Social History Tobacco Use Types Packs/Day Years [...] Answer Date Recorded PHQ-2 Score 1 10/24/2024 [facility] [place] of Occupat ional Health - Occupational Stress [...] exercise at this level? 20 min 05/07/2024 Benedict Depression Scale Answer Date Recorded Benedict Depression Score 5 01/14/2021 Last EPDS Self [...] CDT Legal Sex Female 4:13 AM DOCUMENT REVIEW ATTORNEY Gender Identity Female 03/02/2021 5:45 PM CDT Sexual Orientation Straight 02/28/2020 12 :51 AM CDT documented as of this encounter Last Filed Vital Signs Vital Sign Reading Time Taken Comments Blood Pressure 112/64 03/19/2025 5:32 PM CDT Pulse 69 03/19/2025 5:32 PM CDT Temperature 37.1 C (98.7 F) 03/19/2025 5:32 PM CDT Respiratory Rate 18 03/19/2025 5:32 PM CDT Oxygen Saturation 100% 03/19/2025 5:32 PM CDT Inhaled Oxygen Concentration - - Weight 92.5 kg (204 lb) 03/19/2025 5:32 PM CDT Height 167.6 cm (5' 6) 03/19/2025 5:32 PM CDT Body Mass Index 32.93 03/19/2025 5:32 PM CDT documented in this encounter Patient Instructions * Patient Instructions* Amalia Zayas MD - 03/19/2025 5:15 PM CDT Please start taking Bactrim twice a day for the next 7 days to treat the local infection involving the growth on your left inner thigh. Follow up as scheduled with mold maker plaster on 03/25/25 to determine a plan for possible cyst excision (removal). OK to use hot pack or cold pack on the area if desired. Continue to monitor and follow up if worsening instead of improving after 3 days on antibiotics. Sent Rx for extended course of Diflucan to use if needed if yeast infection symptoms return during or shortly after course of Bactrim. documented in this encounter Progress Notes * Lexii Merrill CMA - 03/19/2025 5:15 PM CDT Urgent Care Clinic Visit Chief Complaint Patient presents with Urgent Care Cyst on inner left thigh- will be back intermittently- has an appointment to be seen for this on Tuesday to have it lanced at OBGYN, nausea, migraine, hot flashes, sweating within last couple of days-no fever, took tylenol for headache, head feels heavy. Had some burning with intercourse yesterday is on medication for a yeast infection- was given last week. Neck feels sore. 03/19/2025 5:34 PM Additional Questions Roomed by Lexii Restrepo Accompanied by daughter * Amalia Zayas MD - 03/19/2025 5:15 PM CDT ICD-10-CM 1. Skin pustule L08.9 sulfamethoxazole-trimethoprim (BACTRIM DS) 800-160 MG tablet 2. Medication side effects T88.7XXA fluconazole (DIFLUCAN) 150 MG tablet Will treat currently infected cyst with oral antibiotics. Given pustular appearance, will use Bactrim for MRSA coverage There is no abscess formation at this time. Currently finishing fluconazole tx for vaginal yeast infection. New Rx for extended course of fluconazole to use if Bactrim triggers another bout of candidiasis. PLAN: Patient Instructions Please start taking Bactrim twice a day for the next 7 days to treat the local infection involving the growth on your left inner thigh. Follow up as scheduled with mold maker plaster on 03/25/25 to determine a plan for possible cyst excision (removal). OK to use hot pack or cold pack on the area if desired. Continue to monitor and follow up if worsening instead of improving after 3 days on antibiotics. SUBJECTIVE: Kim Johnson is a 24 year old female who presents to UC with a flare-up of a recurrent cyst very high on the inner left thigh. This frequently gets irritated but it's been more red and painful thanusual. Has appt on 03/25 with mold maker plaster to discuss possible removal given the recurrent problems but having enough pain now that she was advised to come to UC earlier for evaluation of possible infection. No fever known, but has had some headaches and just feeling generally under the weather for several days now. Review of last visit note from 03/13 indicates that pt was having a headache as far back as that. OBJECTIVE: BP 112/64 Pulse 69 Temp 98.7 ??F (37.1 ??C) Resp 18 Ht 1.676 m (5' 6) Wt 92.5 kg (204 lb) SpO2 100% BMI 32.93 kg/m?? GEN: well-appearing, in NAD exam reveals 7-8 mm erythematous nodule with small amount of purulent drainage on the inner leftthigh. There is no fluctuance here. No red streaks extending outward from this area. documented in this encounter Plan of Treatment Upcoming Encounters Date Type Department Care Team (Late st Contact Info) Description 04/30/2025 10:30 AM CDT Office Visit [facility] [address], [address] [place] [phone] Liset Márquez MD [address] [facility] [address] [place], [place] [address] 05/30/2025 2:45 PM DOCUMENT REVIEW ATTORNEY Office Visit [facility] [address] [phone] Fabiano Correa NP [address] [place], [place] [address] Walter Nowak MD [address] [place], [place] [phone] 08/07/2025 8:15 AM DOCUMENT REVIEW ATTORNEY Office Visit [place] [address] [phone] Lucien Grimes MD [address] [address] 08/21/2025 9:00 AM DOCUMENT REVIEW ATTORNEY Office Visit [facility] [address] [phone] Neil Kent MD [address] [place], [place] [address] 10/09/2025 10:45 AM CDT Virtual Visit [facility] [place] [address] [facility] [address] 4th [place] [phone] Meredith Carrera PA-C [address] [place] [address] documented as of this encounter Visit Diagnoses Diagnosis Skin pustule- Primary Unspecified local infection of skin and subcutaneous tissue Medication side effects Unspecified adverse effect of unspecified drug, medicinal and biological substance documented in this encounter Additional Health Concerns Assessment Noted Time PHQ-9 Depression Total Score: 5 10/25/19 10:38 AM CDT documented as of this encounter Care Teams Jeep Driver Relationship Specialty Start Date End Date Esha Grimm PA-C [address] [place] [phone] PCP - General Family Medicine 05/04/23 Diana Desir, [facility] [address] [place], [place] [phone] Pharmacist Pharmacist 04/17/21 Rain Galaviz PA-C [address] [place] [address] [address] [place] [address] Physician Material Preparation Worker Dermatology 04/28/21 Tavia Wyatt MD [address] [place] [address] [address] [place] [address] Dermatology 07/14/21 Erica Farrell APRN ACREAGE REPORTER [address] [facility] [address] [place] [address] Nurse Practitioner Cardiovascular Disease 09/09/21 Rich Barrett MD [address] [place] [address] Physician Ophthalmology 01/21/22 Neil Kent MD [address] [place] [address] Dermatology 02/24/22 [facility] [address] [place], [place] [phone] [facility] Pharmacist 04/07/22 Livan Sharif MD [address] [place] [address] Cardiovascular Disease 05/14/22 Catherine Cm MD [address] [place], [place] [address] Cardiovascular Disease 07/21/22 Valery Veronica PA-C 9[address] [place], [place] [address] Physician Material Preparation Worker Dermatology 07/21/22 Brea Quinn APRN ACREAGE REPORTER 500 [place] [address] Nurse Practitioner Dermatology 09/21/22 Jelena David OD [address] [facility] [place] [address] Ophthalmology 06/15/23 Esha Grimm, PA-C [address] [place] [phone] Assigned PCP 07/16/23 Valery Veronica PA-C [address] [place] [address] Physician Material Preparation Worker Dermatology 09/19/23 Rey Tay MD [address] [place] [address] MD Gastroenterology 09/20/23 Rocky Zepeda DO [address] [place] [address] 152715 Physician Gastroenterology 09/20/23 Philip Dumont MD [address] [place] [address] Physician Ophthalmology 09/22/23 Meredith Carrera PA-C [address] [place] [address]88[address] Assigned Gastroenterology Provider 11/01/23 Neil Kent MD [address] [phone] Dermatology 11/02/23 [place] [address] [address] [place] [address] Neurological Surgery 12/26/23 Audrey Waite PA-C [address] [place] [address] Physician Material Preparation Worker Dermatology 02/28/24 Valery Veronica PA-C [address] [place] [address] Physician Material Preparation Worker Dermatology 04/10/24 Herminia Hatch MD [address] [place] [address] [id number] Assigned Rheumatology Provider 07/02/24 Jelena David, SONJA [address] [place] [address] [place] [address] Ophthalmology 08/30/24 [place] [address] [facility] [address] Assigned Neuroscience Provider 09/30/24 Maru Man PA-C [address] [place] [address] Physician Material Preparation Worker Dermatology 10/03/24 Maru Man PA-C [address] [place] [address] Physician Material Preparation Worker Dermatology 10/22/24 Jelena David OD [address] [place] [address] [place] [address] Assigned Surgical Provider 10/31/24 Fabiano Correa, BRYCE [address] [place] [address] Assigned Heart and Vascular Provider 11/30/24 Walter Nowak MD [address] [place] [address] Physician Clinical Cardiac Electrophysiology 03/01/25 Liset Márquez MD [address] [facility] 300 [place] [address] seed corn production manager 03/13/25 documented as of this encounter
--- OUTSIDE RECORDS SUMMARY | 2025-04-10 07:30 | XMS_ITS | Encounter Summary ---
Author Organization [facility] Address [address] [place] [address] Care Team Providers Care Customer Leader Name Role Phone Diana Desir [facility] Unavailable Rain GalavizC Unavailable Tavia Wyatt MD Unavailable [phone] Erica Farrell APRN APARTMENT COMMUNITY MANAGER Unavailable Rich Barrett MD Unavailable [phone] Neil Kent MD Unavailable ThangKendrickDiana Stanislav [facility] Unavailable Livan Sharif MD Unavailable Catherine Cm MD Unavailable + Valery Veronica-C Unavailable Brea Quinn APRN APARTMENT COMMUNITY MANAGER Unavailable Esha Grimm PA-C Primary Care Provider [phone] Jelena David OD Unavailable Esha Grimm PA-C Unavailable [phone] Valery Veronica PA-C Unavailable Rey Tay MD Unavailable DuaneRocky Unavailable Philip Dumont MD Unavailable [phone] Meredith Carrera PA-C Unavailable [phone] Neil Kent MD Unavailable Juan Pablo Emmanuel MD Unavailable [phone] Audrey Waite PA-C Unavailable [phone] Valery Veronica PA-C Unavailable Herminia Hatch MD Unavailable Jelena David OD Unavailable Juan Pablo Emmanuel MD Unavailable [phone] Maru Man PA-C Unavailable [phone] Maru Man PA-C Unavailable [phone] Jelena David OD Unavailable Fabiano Correa NP Unavailable [phone] Walter Nowak MD Unavailable Liste Márquez MD Unavailable Reason for Referral * Med Therapy Management (Routine: Next available opening) - Closed Specialty Diagnoses / Procedures Referred By Contparviz t Referred To Contact Pharmacist Diagnoses Psoriasis Neil Kent MD [address] [place] [address] Phone: tel: fax: Referral ID Status Reason Start Date Expiration Date Visits Re quested Visits Authorized [id number] Closed 04/10/2025 04/10/2026 1 1 Question Answer Type of MTM: Specialty Specialty: Dermatology Course of Action: Other Reason for Referral: skyrizi psoriasis Comments [facility] Medication Therapy Management department will contact you [...] prescription and non-prescription medications (such as vitamins, bmle-inc-fzodfhy medications, and herbals) or a detailed medication list to your appointment. If you have a glucose meter or other home monitoring information, please also bring this to your appointment (i.e. blood glucose log, blood pressure log, pain log, etc.). Reason for Visit * Reason Comments Psoriasis Encounter Details Date Type Department Care Team (Late st Contact Info) Description 04/10/2025 7:30 AM CDT Office Visit [facility] [address] [phone] Neil Kent MD [address] [place] [address] Psoriasis (Primary Dx); Therapeutic drug monitoring Social History Tobacco Use Types Packs/Day Years Used Date Smoking Tobacco: Former Cigarettes 1 4 Q uit: 12/07/2019 Other Passive Smoke Exposure: Past Smokeless Tobacco: Never Tobacco Cessation:Counseling Given: No Comments:1 year 4 months tobacco free Alcohol [...] PHQ-2 Answer Date Recorded PHQ-2 Score 1 04/11/2025 [facility] - [...] exercise at this level? 20 min 05/07/2024 [place] Depression Scale Answer Date Recorded [place] Depression Score 5 01/14/2021 Last EPDS Self [...] PM CDT Legal Sex Female 4:13 AM SIGNAL WORKER Gender Identity Female 03/02/2021 5:45 PM CDT Sexual Orientation Straight 02/28/2020 12 :51 AM CDT documented as of this encounter Progress Notes * Neil Kent MD - 04/10/2025 7:30 AM CDT [facility] Dermatology Note Encounter Date: Apr 10, 2025 Dermatology Problem List: Social Hx: Impression/Plan: Assessment & Plan Psoriasis: - Extensive psoriasis confirmed, affecting multiple body areas. Injectable biologic therapy (Skyrizi) recommended due to inadequate response to topical agents. Treatment may also benefit joint pain if psoriatic arthritis is present. - Recommended initiation of Skyrizi (risankizumab) injection, administered four times per year. Referral to medication therapy management pharmacist for insurance approval, education, and medication delivery setup. Advised follow-up appointment in 4 months to assess response to therapy. - Risks and side effects: Discussed slightly increased risk of upper respiratory tract infections (e.g., colds). Explained mechanism of action as selective immune modulation, not broad immunosuppression. Addressed low likelihood of exacerbating eosinophilic esophagitis. The longitudinal plan of care for the diagnosis(es)/condition(s) as documented were addressed during this visit. Due to the added complexity in care, I will continue to support Kim in the subsequent management and with ongoing continuity of care for psoriasis. Therapeutic drug monitoring: - Will repeat QuantiFERON Gold test for tuberculosis screening prior to initiation of biologic therapy, per protocol and insurance requirements. Costochondritis and possible psoriatic arthritis: - Chest wall pain attributed to costochondritis, which may be associated with underlying autoimmunedisease. Possible psoriatic arthritis considered due to joint and bone pain; location atypical but response to therapy will be used diagnostically. Eosinophilic esophagitis: - Eosinophilic esophagitis present; not expected to improve with psoriasis therapy due to differinginflammatory pathways. Very low likelihood of worsening with Skyrizi. - Monitor for any worsening of esophageal symptoms after initiation of Skyrizi. Advised patient of low risk. - Risks and side effects: Discussed very low likelihood of exacerbation of eosinophilic esophagitiswith Skyrizi. Seborrheic keratosis (possible): - Possible early seborrheic keratosis identified; benign skin growth. - No intervention recommended at this time. Follow-up in 4 mo. Staff Involved: Staff Only Neil Kent MD Counter Sales Person of Dermatology Department of Dermatology [facility] CC: Chief Complaint Patient presents with Psoriasis History of Present Illness: Ms. iKm Johnson is a 24 year old female who presents as a return patient. History of Present Illness-Kim Johnson, age 24, reports longstanding psoriasis affecting thighs,legs, arms, neck, breasts, stomach, vaginal area, scalp, and ears. She moisturizes skin regularly with multiple products. She previously used triamcinolone ointment, protopic ointment, and ketoconazole shampoo, but discontinued due to lack of efficacy. She has history of eosinophilic esophagitis. She experiences frequent chest wall pain and pressure, as well as achy neck and back. She denies heart issues; cardiac evaluation was normal. She has been offered injectable treatments for psoriasis and pain in the past but declined. She reports history of supraventricular tachycardia and heart lesion. She notes a non-itchy brown skin jluis of uncertain origin. She reports that eosinophilic esophagitis symptoms may be triggered by certain foods. Labs: Physical exam: Vitals: No GEN: well developed, well-nourished, in no acute distress, in a pleasant mood. SKIN: Eisenberg phototype - Full skin, which includes the head/face, both arms, chest, back, abdomen,both legs, genitalia and/or groin buttocks, digits and/or nails, was examined. - well demarcated psoriasiform plaques w/ overlying micaceous scale on on trunk and extremities ~30%BSA - No other lesions of concern on areas examined. Past Medical History: Past Medical History: Diagnosis Date Anxiety Chronic kidney disease stones, history of infections Depressive disorder Gastroesophageal reflux disease Psoriasis Seizure (H) 05/02/2019 no seizure since 2018 SVT (supraventricular tachycardia) Past Surgical History: Procedure Laterality Date EP ABLATION SVT N/A 08/28/2021 Procedure: EP Ablation SVT; Surgeon: Galo Burrell MD; Location: HEART CARDIAC TOOLROOM ATTENDANT ESOPHAGOSCOPY, GASTROSCOPY, DUODENOSCOPY (EGD), COMBINED N/A 06/26/2021 Procedure: ESOPHAGOGASTRODUODENOSCOPY (EGD) (fv); Surgeon: Rey Sheppard MD; Location: GI ESOPHAGOSCOPY, GASTROSCOPY, DUODENOSCOPY (EGD), COMBINED N/A 09/12/2023 Procedure: Esophagoscopy, gastroscopy, duodenoscopy (EGD), combined; Surgeon: Rey Tay MD; Location: GI GENITOURINARY SURGERY kidney Social History: reports that she quit smoking about 5 years ago. Her smoking use included cigarettes and other. Shehas a 4 pack-year smoking history. She has been exposed to tobacco smoke. She has never used smokeless tobacco. She reports that she does not currently use alcohol. She reports that she does not use drugs. Family History: Family History Problem Relation Age [...] hx of Glaucoma No family hx of Medications: Current Outpatient Medications Medication Sig Dispense Refill levonorgestrel (MIRENA) 52 MG (20 mcg/day) IUD by Intrauterine route once Risankizumab-rzaa (SKYRIZI) 150 MG/ML subcutaneous Inject 1 mL (150 mg) subcutaneously See Admin Instructions. - 1 injection on day 0, 1 injection on day 28, then 1 injection every 12 weeks 1 mL 1 Risankizumab-rzaa (SKYRIZI) 150 MG/ML subcutaneous Inject 1 mL (150 mg) subcutaneously once every twelve weeks. 1 mL 2 clindamycin (CLEOCIN T) 1 % external lotion Apply topically 2 times daily (Patient not taking: Reported on 04/10/2025) 60 mL 1 ketoconazole (NIZORAL) 2 % external shampoo Use every 1-2 days when flared. Leave in few minutes before rinsing. Use twice weekly to prevent flares. (Patient not taking: Reported on 04/10/2025) 120 mL11 LORazepam (ATIVAN) 0.5 MG tablet Take 1 tablet (0.5 mg) by mouth every 6 hours as needed for anxiety. 30 tablet 0 metoprolol succinate ER (TOPROL XL) 25 MG 24 hr tablet Take 0.5 tablets (12.5 mg) by mouth daily. 45 tablet 3 omeprazole (PRILOSEC) [address] capsule Take 1 capsule (40 mg) by mouth daily. 90 capsule 2 PARoxetine (PAXIL) 40 MG tablet Take 1 tablet (40 mg) by mouth every morning. NEED APPT FOR FURTHERREFILLS. 30 tablet 5 simethicone (MYLICON) 125 MG chewable tablet Take 1 tablet (125 mg) by mouth 4 times daily as needed for intestinal gas. 120 tablet 1 tacrolimus (PROTOPIC) 0.1 % external ointment Apply thin layer to psoriasis on thinner skin of face/genitals up to twice daily as needed. (Patient not taking: Reported on 04/10/2025) 60 g 0 tretinoin (RETIN-A) 0.05 % external cream Apply topically at bedtime (Patient not taking: Reported on 04/10/2025) 45 g 0 triamcinolone (KENALOG) 0.1 % external ointment Apply topically 2 times daily. To psoriasis on bodyor arms/legs until healed then stop (Patient not taking: Reported on 04/10/2025) 80 g 0 Allergies Allergen Reactions Vancomycin Vancomycin Other (See Comments) documented in this encounter Plan of Treatment Upcoming Encounters Date Type Department Care Team (Late st Contact Info) Description 04/30/2025 10:30 AM CDT Office Visit [facility] [address] [place] [phone] Liset Márquez MD [address] [place] [address] 05/30/2025 2:45 PM SIGNAL WORKER Office Visit [facility] [place] [id number] [phone] Fabiano Correa NP [address] [place], [place] [address] Walter Nowak MD [address] [place], [place] [address] 08/07/2025 8:15 AM SIGNAL WORKER Office Visit [facility] [place] [id number] [address] [phone] Lucien Grimes MD [address] [id number] 08/21/2025 9:00 AM SIGNAL WORKER Office Visit [facility] [address] [phone] Neil Kent MD [address] [place], [place] [address] 10/09/2025 10:45 AM CDT Virtual Visit [facility] [place] [address] [facility] 4th [place] [phone] Meredith Carrera PA-C [address] [place] [address] Scheduled Referrals Name Type Priority Associated Diagnoses Orde r Schedule Med Therapy Management Referral Referral Routine: Next available opening Psoriasis Ordered: 04/10/2025 documented as of this encounter Visit Diagnoses Diagnosis Psoriasis- Primary Other psoriasis Therapeutic drug monitoring Encounter for therapeutic drug monitoring documented in this encounter Additional Health Concerns Assessment Noted Time PHQ-9 Depression Total Score: 5 10/25/19 25 10:38 AM CDT documented as of this encounter Care Teams Customer Leader Relationship Specialty Start Date End Date Esha Grimm PA-C [address] [place] [phone] PCP - General Family Medicine 05/04/23 Diana Desir, [facility] [address] [place] [address] Pharmacist Pharmacist 04/17/21 Rain Galaviz PA-C [address] [place] [address] [address] [place] [address] Physician Rn New Graduate Dermatology 04/28/21 Tavia Wyatt MD [address] [place] [address] [address] [place] [address] Dermatology 07/14/21 Erica Farrell APRN APARTMENT COMMUNITY MANAGER [address] [place] [address] Nurse Practitioner Cardiovascular Disease 09/09/21 Rich Barrett MD [address] [place] [address] Physician Ophthalmology 01/21/22 Neil Kent MD [address] [place], [place] [phone] Dermatology 02/24/22 Diana Desir, [facility] [address] [place] [address] Assigned [place] Pharmacist 04/07/22 Livan Sharif MD [address] [place], [place] [phone] Cardiovascular Disease 05/14/22 Catherine Cm MD [address] [place] [address] Cardiovascular Disease 07/21/22 Valery Veronica PA-C [address] [place], [place] [address] Physician Rn New Graduate Dermatology 07/21/22 Brea Quinn APRN APARTMENT COMMUNITY MANAGER [address] [place] [address] Nurse Practitioner Dermatology 09/21/22 Jelena David OD [address] [facility] [place] [address] Ophthalmology 06/15/23 Esha Grimm PA-C [address] [place] [phone] Assigned PCP 07/16/23 Valery Veronica PA-C [address] [place] [address] Physician Rn New Graduate Dermatology 09/19/23 Rey Tay MD [address] [place] [address] MD Gastroenterology 09/20/23 Rocky Zepeda DO [address] [place] [address] [phone] Physician Gastroenterology 09/20/23 Philip Dumont MD [address] [place] [address]20175 Physician Ophthalmology 09/22/23 Meredith Carrera PA-C [address] [place] [address] Assigned Gastroenterology Provider 11/01/23 Neil Kent MD [address] [address] Dermatology 11/02/23 [place] [address] [place] [address] Neurological Surgery 12/26/23 Audrey Waite PA-C [address] [place] [address] Physician Rn New Graduate Dermatology 02/28/24 Valery Veronica PA-C [id number] [place] [address], [place] [address] Physician Rn New Graduate Dermatology 04/10/24 Herminia Hatch MD [address] [place] [address] Assigned Rheumatology Provider 07/02/24 Jelena David OD [address] [place] [address] [place] [address] Ophthalmology 08/30/24 [place] [address] [place] [address] Assigned Neuroscience Provider 09/30/24 Maru Man PA-C [address] [place] [address] Physician Rn New Graduate Dermatology 10/03/24 Maru Man PA-C [address] [place] [address] Physician Rn New Graduate Dermatology 10/22/24 Jelena David OD [address] [place] [address] [place] [address] Assigned Surgical Provider 10/31/24 Fabiano Correa NP [address] [place] 030695 Assigned Heart and Vascular Provider 11/30/24 Walter Nowak MD [address] [place] [id number] Physician Clinical Cardiac Electrophysiology 03/01/25 Liset Márquez MD [address] [address] utilization management nurse 03/13/25 documented as of this encounter
--- OUTSIDE RECORDS SUMMARY | 2025-04-11 09:30 | XMS_ITS | Encounter Summary ---
Author Organization [place] Address [address] [place] [address] Care Team Providers Care Religious Healer Name Role Phone Diana Desir [facility] Unavailable Rain GalavizC Unavailable [phone] Tavia Wyatt MD Unavailable [phone] Erica Farrell APRN PUBLIC OPINION SURVEY TAKER Unavailable Rich Barrett MD Unavailable [phone] Neil Kent MD Unavailable ThangKendrickDiana Stanislav [facility] Unavailable Livan Sharif MD Unavailable Catherine Cm MD Unavailable + Valery Veronica-C Unavailable [phone] Brea Quinn APRN PUBLIC OPINION SURVEY TAKER Unavailable Esha Grimm PA-C Primary Care Provider Jelena David OD Unavailable Esha Grimm PA-C Unavailable [phone] Valery Veronica PA-C Unavailable [phone] Rey Tay MD Unavailable DuaneRocky Unavailable Philip Dumont MD Unavailable [phone] Meredith Carrera PA-C Unavailable Neil Kent MD Unavailable Juan Pablo Emmanuel MD Unavailable Audrey Waite PA-C Unavailable Valery Veronica PA-C Unavailable Herminia Hatch MD Unavailable Jelena David OD Unavailable [phone] Juan Pablo Emmanuel MD Unavailable Maru Man-C Unavailable Maru Man-C Unavailable Jelena David OD Unavailable [phone] Fabiano Correa NP Unavailable Walter Nowak MD Unavailable Liset Márquez MD Unavailable Reason for Visit * Reason Comments Forms Medication insurance to go over it Encounter Details Date Type Department Care Team (Late st Contact Info) Description 04/11/2025 9:30 AM CDT Virtual Visit [facility] [address] [place] [phone] Esha Grimm PA-C [id number] [place] [phone] Chest wall discomfort (Primary Dx); Encounter for review of form with patient Social History Tobacco Use Types Packs/Day Years [...] you attend [facility] or [employer]? 1 to 4 [...] Answer Date Recorded PHQ-2 Score 1 04/11/2025 [facility] - Occupational [...] exercise at this level? 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 How would you like to obtain your AVS? MyChart If the video visit is dropped, the invitation should be resent by: Text to cell phone: [phone] Will anyone else be joining your video visit? No Assessment & Plan (R07.89) Chest wall discomfort (primary encounter diagnosis) Having some intermittent chest wall discomfort. Seems likely musculoskeletal in nature, has been using heat, topicals and anti-inflammatories. Offered muscle relaxer but at this time she would like to continue with over the counter medications. Will reach out if wanting muscle relaxer, would prescribe Flexeril 5 mg TID PRN if wanting to try. Will reach out as needed if symptoms worsen or fail to improve. (Z02.89) Encounter for review of form with patient Needing letter due to recent insurance issues with ER visits and being deemed non-emergent. Completed letter today. Will look for paperwork from insurance to complete-should be coming in the next 1-2weeks. Follow up as needed if symptoms worsen or fail to improve. Dario Alvarez is a 24 year old, presenting for the following health issues: Forms (Medication insurance to go over it) 04/11/2025 9:27 AM Additional Questions Roomed by elio vila Video Start Time: 9:33 AM History of Present Illness Reason for visit: Paperwork/updates She eats 2-3 servings of fruits and vegetables daily.She consumes 1 sweetened beverage(s) daily.Sheexercises with enough effort to increase her heart rate 20 to 29 minutes per day. She exercises with enough effort to increase her heart rate 3 or less days per week. She is taking medications regularly. -Wondering about letter to support ER visits this year due to symptoms consistent with EOE and SVT. -Neck pain and back discomfort. Has been seen for this in the past and feels she may have pulled a muscle. She has been doing heat, Ibuprofen and topicals with some relief. Review of Systems Constitutional, HEENT, cardiovascular, pulmonary, gi and gu systems are negative, except as otherwise noted. Objective Vitals - Patient Reported Weight (Patient Reported): 90.7 kg (200 lb) Height (Patient Reported): 167.6 cm (5' 6) BMI (Based on Pt Reported Ht/Wt): 32.28 SpO2 (Patient Reported): 99 Pulse (Patient Reported): 75 Pain Score: No Pain (0) Vitals: No [...] Type of service: Video Visit Video End Time:9:54 AM Originating Location (pt. Location): Home Distant Location (provider location): On-site Platform used for Video Visit: Ramón Signed Electronically by: Esha Grimm PA-C documented in this encounter Plan of Treatment Upcoming Encounters Date Type Department Care Team (Late st Contact Info) Description 04/30/2025 10:30 AM CDT Office Visit [facility] [address], [address] [place] [address] Liset Márquez MD [address] [address] 05/30/2025 2:45 PM AUTO PARTS PROFESSIONAL Office Visit [address] [phone] Fabiano Correa NP 6405 [place] [address] Walter Nowak MD [address] [place], [place] 220[address] 08/07/2025 8:15 AM [employer]O PARTS PROFESSIONAL Office Visit [address] [phone] Lucien Grimes MD [address] [facility] [address] [place] [address] 08/21/2025 9:00 AM AUTO PARTS PROFESSIONAL Office [facility] [address] [phone] Neil Kent MD 500 [place], [place] [phone] 10/09/2025 10:45 AM CDT Virtual Visit [facility] [place] [address] [place] [address] 4th [place] [phone] Meredith Carrera PA-C [address] [place] [address] documented as of this encounter Visit Diagnoses Diagnosis Chest wall discomfort- Primary Painful respiration Encounter for review of form with patient documented in this encounter Additional Health Concerns Assessment Noted Time PHQ-9 Depression Total Score: 5 04/11/20 25 9:17 AM CDT documented as of this encounter Care Teams Religious Healer Relationship Specialty Start Date End Date Esha Grimm PA-C [address] [place] [phone] PCP - General Family Medicine 05/04/23 Diana Desir, [facility] [address] [place] [address] Pharmacist Pharmacist 04/17/21 Rain Galaviz PA-C [address] [place] [address] [address] [facility] [address] Physician Hardboard Panel Printer Dermatology 04/28/21 Tavia Wyatt MD [address] [place] [address] DR [address] [place] [address] [phone] Dermatology 07/14/21 Erica Farrell APRN PUBLIC OPINION SURVEY TAKER [address] [address] Nurse Practitioner Cardiovascular Disease 09/09/21 Rich Barrett MD [address] 997[address] Physician Ophthalmology 01/21/22 Neil Kent MD 500 [place], [place] 713815 Dermatology 02/24/22 Diana Desir, [facility] [address] [place] [address] Assigned MTM Pharmacist 04/07/22 Livan Sharif MD [address] [address] Cardiovascular Disease 05/14/22 Catherine Cm MD [address] [address] Cardiovascular Disease 07/21/22 Valery Veronica, PA-C [address] [place] [address] [phone] Physician Hardboard Panel Printer Dermatology 07/21/22 Brea Quinn APRN PUBLIC OPINION SURVEY TAKER [address] [place] [address] [phone] Nurse Practitioner Dermatology 09/21/22 Tommy Davidistine SONJA Garcia [address] [facility] [place] [address] MD Ophthalmology 06/15/23 Esha Grimm PA-C [address] [place] [phone] Assigned PCP 07/16/23 Valery Veronica PA-C [address] [place] [address] 366315 Physician Hardboard Panel Printer Dermatology 09/19/23 Rey Tay MD [address] [place] [address] 335165 MD Gastroenterology 09/20/23 Rocky Zepeda DO [address] [place] [address] 211385 Physician Gastroenterology 09/20/23 Philip Dumont MD [address] [place] [address] 140185 Physician Ophthalmology 09/22/23 Meredith Carrera PA-C [address] [place] [address] [phone] Assigned Gastroenterology Provider 11/01/23 Neil Kent MD [address] [address] Dermatology 11/02/23 [place] [address] [place] [address] Neurological Surgery 12/26/23 Audrey Waite PA-C 500 [place] [address] Physician Hardboard Panel Printer Dermatology 02/28/24 Valery Veronica PA-C [address] [place] [address] Physician Hardboard Panel Printer Dermatology 04/10/24 Herminia Hatch MD [address] [place] [address] [phone] Assigned Rheumatology Provider 07/02/24 Jelena David OD [address] [place] [address] [place] [address] Ophthalmology 08/30/24 [place] [address] [place] [address] Assigned Neuroscience Provider 09/30/24 Maru Man PA-C [address] [place] [address] Physician Hardboard Panel Printer Dermatology 10/03/24 Maru Man PA-C [address] [place] [address] Physician Hardboard Panel Printer Dermatology 10/22/24 Jelena David OD [address] [place] [address] [place] [address] Assigned Surgical Provider 10/31/24 Fabiano Correa NP 6[address] [facility] [place] [address] Assigned Heart and Vascular Provider 11/30/24 Walter Nowak MD [address] [place] [address] Physician Clinical Cardiac Electrophysiology 03/01/25 Liset Márquez MD [address] [address] flat lock operator 03/13/25 documented as of this encounter
--- OUTSIDE RECORDS SUMMARY | 2025-04-12 14:20 | XMS_ITS | Encounter Summary ---
Author Organization [place] Address [address] [place] [address] Care Team Providers Care Wafer Machine Operator Name Role Phone Diana Desir [facility] Unavailable Rain GalavizC Unavailable [phone] Tavia Wyatt MD Unavailable [phone] Erica Farrell APRN RN INVASIVE Unavailable Rich Barrett MD Unavailable [phone] Neil Kent MD Unavailable ThangKendrickDiana Stanislav [facility] Unavailable Livan Sharif MD Unavailable Catherine Cm MD Unavailable + Valery Veronica-C Unavailable Brea Quinn APRN RN INVASIVE Unavailable Esha Grimm PA-C Primary Care Provider Jelena David OD Unavailable Esha Grimm PA-C Unavailable [phone] Valery Veronica PA-C Unavailable Rey Tay MD Unavailable DuaneRocky Unavailable Philip Dumont MD Unavailable Meredith Carrera PA-C Unavailable [phone] Neil Kent MD Unavailable Juan Pablo Emmanuel MD Unavailable [phone] Audrey Waite PA-C Unavailable Valery Veronica PA-C Unavailable Herminia Hatch MD Unavailable Jelena David OD Unavailable Juan Pablo Emmanuel MD Unavailable [phone] Maru Man PA-C Unavailable Maru Man PA-C Unavailable Jelena David OD Unavailable Fabiano Correa NP Unavailable [phone] Walter Nowak MD Unavailable Liset Márquez MD Unavailable Encounter Details Date Type Department Care Team (Late st Contact Info) Description 04/12/2025 2:20 PM CDT Lab [facility] [address] [place] [phone] Therapeutic drug monitoring Social History Tobacco Use [...] Answer Date Recorded PHQ-2 Score 1 04/11/2025 [facility] [...] exercise at this level? 20 min 05/07/2024 [place] Depression Scale Answer Date Recorded [place] Depression Score 5 01/14/2021 Last EPDS Self [...] PM CDT Legal Sex Female 4:13 AM DIP BRAZIER Gender Identity Female 03/02/2021 5:45 PM CDT Sexual Orientation Straight 02/28/2020 12 :51 AM CDT documented as of this encounter Plan of Treatment Upcoming Encounters Date Type Department Care Team (Late st Contact Info) Description 04/30/2025 10:30 AM CDT Office Visit [facility] [place] [address], [address] [place] [address] Liset Márquez MD [address] [place] [address] 05/30/2025 2:45 PM DIP BRAZIER Office Visit [facility] [address] [facility] [address] [place] [phone] Fabiano Correa, BRYCE [address] [place] 699855 Walter Nowak MD [address] [place] 194605 08/07/2025 8:15 AM DIP BRAZIER Office Visit [facility] [address] [facility] [address] [place] [phone] Lucien Grimes MD [address] [place] [phone] 08/21/2025 9:00 AM DIP BRAZIER Office Visit [facility] [address] [phone] Neil Kent MD 500 [place], [place] [phone] 10/09/2025 10:45 AM CDT Virtual Visit [facility] [place] 9[address] [facility] 4th [place] [phone] Meredith Carrera PA-C [address] [place] [address] [phone] documented as of this encounter Procedures Procedure Name Priority Date/Time Associated Diagnosis Comments QUANTIFERON TB GOLD PLUS Routine 04/12/2025 2:23 PM CDT Therapeutic drug monitoring QUANTIFERON TB GOLD PLUS PURPLE TUBE Routine 04/12/2025 2:23 PM CDT Therapeutic drug monitoring QUANTIFERON TB GOLD PLUS YELLOW TUBE Routine 04/12/2025 2:23 PM CDT Therapeutic drug monitoring QUANTIFERON TB GOLD PLUS GREEN TUBE Routine 04/12/2025 2:23 PM CDT Therapeutic drug monitoring QUANTIFERON TB GOLD PLUS GIL TUBE Routine 04/12/2025 2:23 PM CDT Therapeutic drug monitoring QUANTIFERON-TB GOLD PLUS Routine 04/12/2025 2:23 PM CDT Therapeutic drug monitoring QUANTIFERON TB GOLD PLUS COLLECTION Routine 04/12/2025 2:23 PM CDT Therapeutic drug monitoring QUANTIFERON TB GOLD PLUS PRIMARY Routine 04/12/2025 2:23 PM CDT Therapeutic drug monitoring documented in this encounter Results * Quantiferon TB Gold Plus (04/12/2025 2:23 PM CDT) [facility] Quantiferon-TB Gold Plus Negative Negative 04/15/2025 12:06 PM CDT SPECIALTY CORE/PROT/END O Comment: No interferon gamma response to M.tuberculosis antigens was detected. Infection with M.tuberculosis is unlikely, however a single negative result does not exclude infection. In patients at high risk for infection, a second test should be considered in accordance with the 2017 ATS/IDSA/CDC Clinical Pract ice Guidelines for Diagnosis of Tuberculosis in Adults and Children TB1 Ag minus Nil Value 0.00 IU/mL 04/15/2025 12:06 PM CDT SPECIALTY CORE/PROT/END O TB2 Ag minus Nil Value -0.03 IU/mL 04/15/2025 12:06 PM CDT SPECIALTY CORE/PROT/END O Mitogen minus Nil Result 9.72 IU/mL 04/15/2025 12:06 PM CDT SPECIALTY CORE/PROT/END O Nil Result 0.28 IU/mL 04/15/2025 12:06 PM CDT SPECIALTY CORE/PROT/END O Blood STRUCTURE OF RIGHT UPPER LIMB / Unknown Venipuncture / Unknown 04/12/2025 2:23 PM CDT 04/12/2025 9:25 PM CDT us Neil Kent MD LAB - MICRO GENERAL ORDERABLES F inal Result UM SPECIALTY CORE/PROT/ENDO UM Specialty Core/Prot/Endo [address] [facility] Room [address] * Quantiferon TB Gold Plus Purple Tube (04/12/2025 2:23 PM CDT) Quantiferon Mitogen 10.00 IU/mL 04/15/2025 11:57 AM CDT UM SPECIALTY CORE/PROT/ENDO Blood STRUCTURE OF RIGHT UPPER LIMB / Unknown Venipuncture / Unknown 04/12/2025 2:23 PM CDT 04/12/2025 9:25 PM CDT Neil Kent MD LAB - MICRO GENERAL ORDERABLES F inal Result UM SPECIALTY CORE/PROT/ENDO Specialty Core/Prot/Endo 500 [facility] Room [address] * Quantiferon TB Gold Plus Yellow Tube (04/12/2025 2:23 PM CDT) Quantiferon TB2 Tube 0.25 04/15/2025 11:57 AM CDT SPECIALTY CORE/PROT/ENDO Blood STRUCTURE OF RIGHT UPPER LIMB / Unknown Venipuncture / Unknown 04/12/2025 2:23 PM CDT 04/12/2025 9:25 PM CDT Neil Kent MD LAB - MICRO GENERAL ORDERABLES F inal Result UM SPECIALTY CORE/PROT/ENDO UM Specialty Core/Prot/Endo 500 [facility] Room [address] * Quantiferon TB Gold Plus Green Tube (04/12/2025 2:23 PM CDT) Quantiferon TB1 Tube 0.28 IU/mL 04/15/2025 11:57 AM CDT SPECIALTY CORE/PROT/ENDO Blood STRUCTURE OF RIGHT UPPER LIMB / Unknown Venipuncture / Unknown 04/12/2025 2:23 PM CDT 04/12/2025 9:25 PM CDT us Neil Kent MD LAB - MICRO GENERAL ORDERABLES F inal Result UM SPECIALTY CORE/PROT/ENDO UM Specialty Core/Prot/Endo [address] [facility], Room [address] * Quantiferon TB Gold Plus Gil Tube (04/12/2025 2:23 PM CDT) Quantiferon Nil Tube 0.28 IU/mL 04/15/2025 11:58 AM CDT UM SPECIALTY CORE/PROT/ENDO Blood STRUCTURE OF RIGHT UPPER LIMB / Unknown Venipuncture / Unknown 04/12/2025 2:23 PM CDT 04/12/2025 9:25 PM CDT us Neil Kent MD LAB - MICRO GENERAL ORDERABLES F inal Result UM SPECIALTY CORE/PROT/ENDO UM Specialty Core/Prot/Endo [address] [facility], Room [address] * Quantiferon TB Gold Plus Primary (04/12/2025 2:23 PM CDT) Blood STRUCTURE OF RIGHT UPPER LIMB / Unknown Venipuncture / Unknown 04/12/2025 2:23 PM CDT 04/12/2025 9:25 PM CDT us Neil Kent MD LAB - MICRO GENERAL ORDERABLES F inal Result UM SPECIALTY CORE/PROT/ENDO UM Specialty Core/Prot/Endo [address] [facility], Room [address] * Quantiferon TB Gold Plus Collection (04/12/2025 2:23 PM CDT) Blood STRUCTURE OF RIGHT UPPER LIMB / Unknown Venipuncture / Unknown 04/12/2025 2:23 PM CDT 04/12/2025 2:25 PM CDT us Neil Kent MD LAB - MICRO GENERAL ORDERABLES F inal Result UM SPECIALTY CORE/PROT/ENDO UM Specialty Core/Prot/Endo 500 [facility], [address] documented in this encounter Visit Diagnoses Diagnosis Therapeutic drug monitoring Encounter for therapeutic drug monitoring documented in this encounter Additional Health Concerns Assessment Noted Time PHQ-9 Depression Total Score: 5 04/11/20 25 9:17 AM CDT documented as of this encounter Care Teams Wafer Machine Operator Relationship Specialty Start Date End Date Esha Grimm PA-C [address] [place] [phone] PCP - General Family Medicine 05/04/23 Diana Desir, [facility] [address] [place] [address] Pharmacist Pharmacist 04/17/21 Rain Galaviz PA-C [address] [place] [address] [address] [place] [address] Physician C 13 Catapult Operator Dermatology 04/28/21 Tavia Wyatt MD [address] [place] [address] [address] [place] [address] Dermatology 07/14/21 Erica Farrell APRN RN INVASIVE [address] [place] [address] Nurse Practitioner Cardiovascular Disease 09/09/21 Rich Barrett MD [address] [place] [address] Physician Ophthalmology 01/21/22 Neil Kent MD 500 [place], [place] [phone] Dermatology 02/24/22 Diana Desir, [facility] [address] [place] [address] Assigned MTM Pharmacist 04/07/22 Livan Sharif MD [address] [place], [place] [address] Cardiovascular Disease 05/14/22 Catherine Cm MD [address] [facility] [address] [place], [place] 430215 Cardiovascular Disease 07/21/22 Valery Veronica PA-C 909 [place], [place] 388555 Physician C 13 Catapult Operator Dermatology 07/21/22 Brea Quinn APRN RN INVASIVE 500 [place], [place] 170935 Nurse Practitioner Dermatology 09/21/22 Jelena David OD [address] [place] [address] Ophthalmology 06/15/23 Esha Grimm PA-C [address] [place] [phone] Assigned PCP 07/16/23 Valery Veronica PA-C 9 [place] [address] Physician C 13 Catapult Operator Dermatology 09/19/23 Rey Tay MD [address] [place] [address] MD Gastroenterology 09/20/23 Rocky Zepeda DO [address] [place] [address] Physician Gastroenterology 09/20/23 Philip Dumont MD [address] [place] [address] Physician Ophthalmology 09/22/23 Meredith Carrera PA-C [address] [place] [address] Assigned Gastroenterology Provider 11/01/23 Neil Kent MD [address] [address] Dermatology 11/02/23 [place] [address] 154417 Neurological Surgery 12/26/23 Audrey Waite PA-C [address] [place] [address] Physician C 13 Catapult Operator Dermatology 02/28/24 Valery Veronica PA-C 601205 [address] [place] [address] Physician C 13 Catapult Operator Dermatology 04/10/24 Herminia Hatch MD [address] [place] [address] Assigned Rheumatology Provider 07/02/24 Jelena David OD [address] [place] [address] [place] [address] Ophthalmology 08/30/24 [place] [address] [place] [address] Assigned Neuroscience Provider 09/30/24 Maru Man PA-C [address] [place] [address] Physician C 13 Catapult Operator Dermatology 10/03/24 Maru Man PA-C [address] [place] [address] Physician C 13 Catapult Operator Dermatology 10/22/24 Jelena David OD [address] [place] [address] [place] [address] Assigned Surgical Provider 10/31/24 Fabiano Correa, BRYCE [address] [place] 975245 Assigned Heart and Vascular Provider 11/30/24 Walter Nowak MD [address] [place] [phone] Physician Clinical Cardiac Electrophysiology 03/01/25 Liset Márquez MD [address] [address] pouncing lathe operator 03/13/25 documented as of this encounter
--- OUTSIDE RECORDS SUMMARY | 2025-04-15 15:30 | XMS_ITS | Encounter Summary ---
Author Organization [facility] Address [address] [place] [address] Care Team Providers Care Competitive Intelligence Manager Name Role Phone Diana Desir [facility] Unavailable Rain GalavizC Unavailable Tavia Wyatt MD Unavailable [phone] Erica Farrell APRN CRIMINAL INTELLIGENCE SPECIALIST Unavailable Rich Barrett MD Unavailable [phone] Neil Kent MD Unavailable ThangKendrickDiana Stanislav [facility] Unavailable Livan Sharif MD Unavailable Catherine Cm MD Unavailable + Valery Veronica-C Unavailable Brea Quinn APRN CRIMINAL INTELLIGENCE SPECIALIST Unavailable Esha Grimm PA-C Primary Care Provider Jelena David OD Unavailable Esha Grimm PA-C Unavailable [phone] Valery Veronica PA-C Unavailable Rey Tay MD Unavailable Duane Rocky Unavailable Philip Dumont MD Unavailable [phone] Meredith Carrera PA-C Unavailable [phone] Neil Kent MD Unavailable Juan Pablo Emmanuel MD Unavailable Audrey Waite PA-C Unavailable Valery Veronica PA-C Unavailable Herminia Hatch MD Unavailable Jelena David OD Unavailable Juan Pablo Emmanuel MD Unavailable Maru Man PA-C Unavailable Maru Man PA-C Unavailable Jelena David OD Unavailable Fabiano Correa NP Unavailable [phone] Walter Nowak MD Unavailable Liset Márquez MD Unavailable Lauren Coronado [facility] Unavailable [phone] Reason for Visit * Reason Comments Medication Therapy Management * Med Therapy Management (Routine: Next available opening) - Closed Specialty Diagnoses / Procedures Referred By Contparviz t Referred To Contact Pharmacist Diagnoses Psoriasis Neil Kent MD [address] [place] [address] Phone: tel: fax: Referral ID Status Reason Start Date Expiration Date Visits Re quested Visits Authorized [id number] Closed 04/10/2025 04/10/2026 1 1 Encounter Details Date Type Department Care Team (Latest Contact Info) Description 04/15/2025 3:30 PM CDT Virtual Visit [facility] Dermatology [facility] [address] [place] [address] Neil Kent MD [address] [place], [place] [phone] Lauren Coronado, [facility] [address] [place], [place] [phone] Psoriasis (Primary Dx); Paroxysmal supraventricular tachycardia; Moderate major depression (H); Anxiety; Contraceptive use; Gastroesophageal reflux disease with esophagitis without hemorrhage; Takes dietary supplements Social History Tobacco Use Types Packs/Day Years [...] Answer Date Recorded PHQ-2 Score 1 04/11/2025 [facility] [place] [facility] - Occupational Stress [...] exercise at this level? 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 MTM pended appeal letter for Skyrizi and routed to liaison team for processing. Orders resent through MTM department. Consider receiving the following vaccination(s): COVID-19 booster, annual flu shot, pneumonia (PCV-20 preferred), shingles (Shingrix; 2 dose-series), and Hepatitis B series (based on labs from 05/31/24). Skyrizi (risankizumab) Education review: Dose: Inject 150 mg subcutaneous at week 0 and week 4, then every 12 weeks thereafter. Storage: Refrigerate until use. Allow medication to sit at room temperature (30- 90 minutes for autoinjector) before your injection. Adverse effects: The most common side effects include injection site reactions, upper respiratory infections, headache, and fatigue. This medication can also cause mild immunosuppression, so it is recommended to stay up to date on non- live vaccines, avoid live vaccines, and contact your provider team if you become ill to discuss whether holding a dose would be appropriate (typically when on antibiotics or if you have a fever). Effect: It may take 3-6 months to notice full benefit, although some patients experience improvement within as little as 4 weeks. Demo Video: https://www.[employer].Zaplee/skDoctorBaseizi-complete/zbg-bs-wsqcma Skyrizi Savings Card: https://www.[employer] Pr[employer].com/signup Follow-up: Kent 08/21; MTM 3 months after Skyrizi start It was great speaking with you today. I value your experience and would be very thankful for your time in providing feedback in our clinic survey. In the next few days, you may receive an email or text message from [facility] [employer] with a link to a survey related to your ???clinical pharmacist. To schedule another MTM appointment, please call the clinic directly or you may call the MTM scheduling line at [phone]. My Clinical Pharmacist's contact information: Please feel free to contact me with any questions or concerns you have. Lauren Coronado, Pharm.D. Medication Therapy Management Pharmacist [facility] Dermatology MTM Scheduling Line: documented in this encounter Progress Notes * Lauren Coronado RPH - 04/15/2025 11:00 AM CDT Medication Therapy Management (MTM) Encounter ASSESSMENT: Medication Adherence/Access: No issues identified. Psoriasis: Phone call was disconnected early and unable to reach patient again after 3 attempts so supplementary information and additional education sent via [employer]. Provided education on Skyrizi (risankizumab) today including dosing, general administration, side effects (both common/serious), precautions, monitoring and time to efficacy. Encouraged indicated non-live vaccines and avoidance of live vaccines. Discussed potential need to hold therapy in the setting of signs/symptoms of active infection. Encouraged patient to contact the Dermatology clinic in the event they have questions. Would benefit from starting Skyrizi once it arrives. Palpitations Stable, controlled. Depression, Anxiety Stable, controlled. Hormonal contraception Stable, controlled. GERD, Gas Stable, controlled. Supplements Stable, controlled. PLAN: MTM pended appeal letter for Skyrizi and routed to liaison team for processing. Orders resent through MTM department. Consider receiving the following vaccination(s): COVID-19 booster, annual flu shot, pneumonia (PCV-20 preferred), shingles (Shingrix; 2 dose-series), and Hepatitis B series (based on labs from 11/21/24). Skyrizi (risankizumab) Education review: Dose: Inject 150 mg subcutaneous at week 0 and week 4, then every 12 weeks thereafter. Storage: Refrigerate until use. Allow medication to sit at room temperature (30- 90 minutes for autoinjector) before your injection. Adverse effects: The most common side effects include injection site reactions, upper respiratory infections, headache, and fatigue. This medication can also cause mild immunosuppression, so it is recommended to stay up to date on non- live vaccines, avoid live vaccines, and contact your provider team if you become ill to discuss whether holding a dose would be appropriate (typically when on antibiotics or if you have a fever). Effect: It may take 3-6 months to notice full benefit, although some patients experience improvement within as little as 4 weeks. Demo Video: https://www.[employer]/skyrizi-complete/vsk-zf-ietuyf Skyrizi Savings Card: https://www.[employer]/signup Follow-up: Donte 08/21; DIPTI 3 months after Skyrizi start SUBJECTIVE/OBJECTIVE: Kim Johnson is a 24 year old female called for an initial visit. She was referred to me from Dr. Neil Kent MD. Reason for visit: Skyrizi (risankizumab) start. Allergies/ADRs: Reviewed in chart and with patient. Past Medical History: Reviewed in chart. Tobacco: She reports that she quit smoking about 5 years ago. Her smoking use included cigarettes and other. She has a 4 pack-year smoking history. She has been exposed to tobacco smoke. She has never used smokeless tobacco. Alcohol: Rarely. Medication Adherence/Access: no issues reported. Skyrizi coverage - Needs appeal letter. Psoriasis: - Skyrizi (risankizumab-rzaa) 150 mg subcutaneously on day 0, day 28, then every 12 weeks thereafter. 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 She has been advised to start injectable therapy for some time and now feels ready to make the switch. Previous topical therapies have not been adequately effective in maintaining symptom control. Condition history: Established with [facility] 04/15/25. Specialist: Dr. Neil Kent MD, Dermatology. Last visit on 04/10/25. The following was recommended: Psoriasis: - Extensive psoriasis confirmed, affecting multiple [...] Addressed low likelihood of exacerbating eosinophilic esophagitis. Costochondritis and possible psoriatic arthritis: - Chest [...] at this time. Follow-up in 4 mo. Previous treatment: - didn't make them go away; Pre-Biologic Screenings Hep B Surface Antibody Non-reactive (05/31/24) Hep B Core Antibody Non-reactive (08/03/24) Hep B Surface Antigen Non-reactive (05/31/24) Hep C Antibody Non-reactive (08/03/24) HIV Antigen Antibody Non-reactive (12/28/24) Quantiferon TB Gold Negative (04/12/25) CBC 01/29/25 CMP 01/29/25 (eGFR >90 mL/min) Immunization History Covid-19 vaccine Due to receive Influenza (annual) Due to receive, avoid live FluMist Tetanus/Tdap Up-to-date Pneumococcal Pneumovax-23: 09/22/21 Prevnar-20: none Due to receive PCV-20 Shingrix (for ages 18-49 at increased risk AND >= 50 years old) Due to receive Hepatitis B vaccine Due to receive based on last serologies All patients on biologics should avoid live vaccines (varicella/VZV, intranasal influenza, MMR, or yellow fever vaccine (if traveling)) Palpitations - Metoprolol succinate ER 25 mg x 0.5 tablet once daily. No reported issues at this time. Occasionally may get mild, tolerable dizziness. Depression, Anxiety - Lorazepam 0.5 mg every 6 hours as needed for anxiety. - Paroxetine 40 mg once daily. Patient reports no current medication side effects. Patient reports symptoms are stable. Lorazepam used variably as needed; once to twice per month approximately. No notable adverse effects. Hormonal contraception - Mirena IUD. Patient reports no current medication side effects. GERD, Gas - Omeprazole DR 40 mg once daily. - Simethicone 125 mg four times daily as needed for intestinal gas. No reported issues at this time. Patient reports this is mostly for treatment of her EoE symptoms. Supplements - Multivitamin once daily. - Fish oil once daily. - Probiotic once daily. No reported issues at this time. Today's Vitals: There were no vitals taken for this visit. I spent 15 minutes with this patient today. All changes were made via collaborative practice agreement with Dr. Neil Kent MD. A summary of these recommendations was sent via clinic portal. Lauren Coronado, Pharm.D. Medication Therapy Management Pharmacist [facility] Dermatology Telemedicine Visit Details The patient's medications can be safely assessed via a telemedicine encounter. Type of service: Telephone visit Originating Location (pt. Location): Home Distant Location (provider location): Off-site Start Time: 3:30 PM End Time: 3:45 PM Medication Therapy Recommendations No medication therapy recommendations to display documented in this encounter Plan of Treatment Upcoming Encounters Date Type Department Care Team (Late st Contact Info) Description 04/30/2025 10:30 AM CDT Office Visit [facility] [address], [address] [place] [address] Liset Márquez MD [address] [facility] [address] [place], [place] [phone] 05/30/2025 2:45 PM MACHINE GRINDER Office Visit [facility] [address] [facility] [address] [place] [phone] Fabiano Correa, CORPORATE SECURITY OFFICER [address] [place], [place] [address] Walter Nowak MD [address] [place], [place] [address] 08/07/2025 8:15 AM MACHINE GRINDER Office Visit [facility] Heart [facility] [address] [facility] [address] [place] [phone] Lucien Grimes MD [address] [phone] [place], [place] [address] 08/21/2025 9:00 AM MACHINE GRINDER Office Visit [facility] [address] [phone] Neil Kent MD [address] [place] [id number] 10/09/2025 10:45 AM CDT Virtual Visit [facility] Gastroenterology Clinic [address] 4th [place] [phone] Meredith Carrera PA-C [address] [place] [address] documented as of this encounter Visit Diagnoses Diagnosis Psoriasis- Primary Other psoriasis Paroxysmal supraventricular tachycardia Moderate major depression (H) Major depressive disorder, single episode, moderate Anxiety Anxiety state, unspecified Contraceptive use Contraceptive surveillance, unspecified Gastroesophageal reflux disease with esophagitis without hemorrhage Takes dietary supplements documented in this encounter Additional Health Concerns Assessment Noted Time PHQ-9 Depression Total Score: 5 04/11/20 25 9:17 AM CDT documented as of this encounter Care Teams Competitive Intelligence Manager Relationship Specialty Start Date End Date Esha Grimm PA-C [address] [place] [address] PCP - General Family Medicine 05/04/23 Diana Desir, [facility] [place] [address] Pharmacist Pharmacist 04/17/21 Rain Galaviz PA-C [address] [place] [address] [address] [place] [address] Physician Electronics Tech Dermatology 04/28/21 Tavia Wyatt MD [address] [place] [address] [address] [place] [address] Dermatology 07/14/21 Erica Farrell APRN CRIMINAL INTELLIGENCE SPECIALIST [address] [place], [place] [phone] Nurse Practitioner Cardiovascular Disease 09/09/21 Rich Barrett MD [address] [place] [address] Physician Ophthalmology 01/21/22 Neil Kent MD [address] [place] [address] Dermatology 02/24/22 Diana Desir, [facility] [address] [place] [address] Assigned [place] Pharmacist 04/07/22 Livan Sharif MD [address] [phone] [place] [address] Cardiovascular Disease 05/14/22 Catherine Cm MD [address] [phone] [place] [address] Cardiovascular Disease 07/21/22 Valery Veronica PA-C [address] [place] [address]145 Physician Electronics Tech Dermatology 07/21/22 Brea Quinn APRN CRIMINAL INTELLIGENCE SPECIALIST [address] [place] [address] [phone] Nurse Practitioner Dermatology 09/21/22 Jelena David OD [address] [place] [address] [place] [address] Ophthalmology 06/15/23 Esha Grimm PA-C [address] [place] [phone] Assigned PCP 07/16/23 Valery Veronica PA-C [address] [place] [address] 894145 Physician Electronics Tech Dermatology 09/19/23 Rey Tay MD [address] [place] [phone] MD Gastroenterology 09/20/23 Rocky Zepeda DO [address] [place] [address] [phone] Physician Gastroenterology 09/20/23 Philip Dumont MD [address] [place] [address] Physician Ophthalmology 09/22/23 Meredith Carrera PA-C [address] [place] [address] [phone] Assigned Gastroenterology Provider 11/01/23 Neil Kent MD [address] [place] [address] [phone] MD Dermatology 11/02/23 [place] [address] [phone] Neurological Surgery 12/26/23 Audrey Waite PA-C [address] [place] [address] Physician Electronics Tech Dermatology 02/28/24 Valery Veronica PA-C 124167 [place] [address] Physician Electronics Tech Dermatology 04/10/24 Herminia Hatch MD [employer] [place] [address] Assigned Rheumatology Provider 07/02/24 Jelena David OD [address] [facility] [place] [address] Ophthalmology 08/30/24 [place] [address] [address] [facility] [address] [place] [address] Assigned Neuroscience Provider 09/30/24 Maru Man PA-C [address] [place] [address] Physician Electronics Tech Dermatology 10/03/24 Maru Man PA-C [address] [place] [address] Physician Electronics Tech Dermatology 10/22/24 Jelena David OD [address] [facility] [place] [address] Assigned Surgical Provider 10/31/24 Fabiano Correa, [facility] [address] [place] [address] Assigned Heart and Vascular Provider 11/30/24 Walter Nowak MD [address] [place] [address] Physician Clinical Cardiac Electrophysiology 03/01/25 Liset Márquez MD [address] [address] nutrition tech 03/13/25 Lauren Coronado, [facility] [address] [place] [address] Pharmacist Pharmacist 04/15/25 documented as of this encounter
[2025-04-26 23:05] VITALS: BP 108/63; PULSE 75; RESP 16; TEMP 36.7; O2SAT 98; BMI 32.3
--- NOTE | 2025-04-26 23:37 | ED_ITS ---
HPI - General Adult General Chief complaint: Chest Pain <Felipe Santos MD - Last Filed: 04/26/25 23:38> Stated complaint: fatigued <Felipe Santos MD - Last Filed: 04/26/25 23:38> Time Seen by Provider: 04/26/25 21:41 <Felipe Santos MD - Last Filed: 04/26/25 23:38> History of Present Illness HPI narrative: Patient is a 25-year-old woman who has history of SVT who comes in today with chest tightness feeling like her heart is been racing general malaise body aches fatigue dysuria and rash in her groin and axilla. She has chronic psoriasis. Patient is had very emotional day and has been very anxious. She describes no fevers no chills no night sweats no change in her vision or hearing no shortness of breath or cough. <Felipe Santos MD - Last Filed: 04/26/25 23:38> Related Data Home medications: Home Medications ?Medication ?Instructions ?Recorded ?Confirmed omeprazole 40 mg capsule,delayed 40 mg PO DAILY 11/21/24 release lorazepam 0.5 mg tablet 0.5 mg PO DAILY PRN anxiety 03/18/23 11/21/24 metoprolol succinate 25 mg 12.5 mg PO DAILY 10/15/23 0 11/21/24 tablet,extended release 24 hr paroxetine HCl 40 mg tablet 40 mg PO QAM 10/15/2311/08 Previous Rx's ?Medication ?Instructions ?Recorded prednisone 20 mg tablet 40 mg (2 x 20 mg) PO DAILY 5 days 12/17/24 #10 tabs propranolol 20 mg tablet 20 mg PO TID PRN Palpitation s #30 12/31/24 tabs <Felipe Santos MD - Last Filed: 04/26/25 23:38> Allergies/adverse reactions: Allergies Allergy/AdvReac Type Severity Reaction Status Date / Time vancomycin AdvReac Redness of Verified 04/27/25 00:47 Skin <Felipe Santos MD - Last Filed: 04/26/25 23:38> Review of Systems Status of ROS: Reports: 10 or more systems reviewed and unremarkable except as noted in History and below <Felipe Santos MD - Last Filed: 04/26/25 23:38> [facility] Medical History: Medical History SVT (supraventricular tachycardia) ?I47.10 - Supraventricular tachycardia, unspecified (ICD-10) <Felipe Santos MD - Last Filed: 04/26/25 23:38> Social History: Social History Smoking Status: Former smoker What tobacco products do you use: cigarettes Smoking quit date/years: <= 15 years ago Do you use any of these nicotine containing products: None and Vaping Products Second hand tobacco smoke exposure: No How often do you have a drink containing alcohol: monthly or less How often do you have six or more drinks on one occasion: Never AUDIT-C Alcohol total score: 1 Non-prescribed substance use: denies use service: No <Felipe Santos MD - Last Filed: 04/26/25 23:38> Exam Narrative: Exam Narrative: EXAM GENERAL: Patient appears comfortable and well. EYES: No scleral icterus. LYMPH: No supraclavicular or cervical lymphadenopathy. SKIN: Chronic psoriasis noted with appears to be a candidate and in the axilla bilaterally. EXT: No dependent lower extremity pedal edema. HEART: Regular rate and rhythm with no murmurs, rubs, or gallops. LUNGS: Clear to auscultation bilaterally with no crackles or wheezes. ABD: Soft, non tender, non distended. PSYCH: Good eye contact, speech is not pressured. <Felipe Santos MD - Last Filed: 04/26/25 23:38> Const: Vital Signs, click to edit/add: Vital Signs - 24 hr 04/26/25 23:05 Temperature 98.0 F Pulse Rate [Pulse Oximeter] 75 Respiratory Rate 16 Blood Pressure [Ri ght Upper Arm] 108/63 Pulse Oximetry 98 Oxygen Delivery Me thod Room Air <Felipe Santos MD - Last Filed: 04/26/25 23:38> Vital Signs, click to edit/add: Vital Signs - 24 hr 04/26/25 23:05 Temperature 98.0 F Pulse Rate [Pulse Oximeter] 75 Respiratory Rate 16 Blood Pressure [Ri ght Upper Arm] 108/63 Pulse Oximetry 98 Oxygen Delivery Me thod Room Air <Clem Villa DO - Last Filed: 04/27/25 01:19> Course Course ED Course: Did send off workup with a D-dimer CBC comprehensive metabolic panel troponin EKG chest x-ray. Will plan to reassess. <Felipe Santos MD - Last Filed: 04/26/25 23:38> Vital Signs Vital signs: Initial Vital Signs Temperature 98.0 F 04/26/25 23:05 Temperature Source Temporal Artery Scan 04/26/25 23:05 Pulse Rate 75 04/26/25 23:05 Respiratory Rate 16 04/26/25 23:05 Blood Pressure 108/63 04/26/25 23:05 Blood Pressure Mean 78 04/26/25 23:05 Pulse Oximetry 98 04/26/25 23:05 Oxygen Delivery Method Room Air 04/26/25 23:05 Vital Signs Temperature 98.0 F 04/26/25 23:05 Pulse Rate 75 04/26/25 23:05 Respiratory Rate 16 04/26/25 23:05 Blood Pressure 108/63 04/26/25 23:05 Pulse Oximetry 98 04/26/25 23:05 Oxygen Delivery Method Room Air 04/26/25 23:05 Temperature 98.0 F 04/26/25 23:05 Pulse Rate 75 04/26/25 23:05 Respiratory Rate 16 04/26/25 23:05 Blood Pressure 108/63 04/26/25 23:05 Pulse Oximetry 98 04/26/25 23:05 Oxygen Delivery Method Room Air 04/26/25 23:05 <Felipe Santos MD - Last Filed: 04/26/25 23:38> Initial Vital Signs Temperature 98.0 F 04/26/25 23:05 Temperature Source Temporal Artery Scan 04/26/25 23:05 Pulse Rate 75 04/26/25 23:05 Respiratory Rate 16 04/26/25 23:05 Blood Pressure 108/63 04/26/25 23:05 Blood Pressure Mean 78 04/26/25 23:05 Pulse Oximetry 98 04/26/25 23:05 Oxygen Delivery Method Room Air 04/26/25 23:05 Vital Signs Temperature 98.0 F 04/26/25 23:05 Pulse Rate 75 04/26/25 23:05 Respiratory Rate 16 04/26/25 23:05 Blood Pressure 108/63 04/26/25 23:05 Pulse Oximetry 98 04/26/25 23:05 Oxygen Delivery Method Room Air 04/26/25 23:05 Temperature 98.0 F 04/26/25 23:05 Pulse Rate 75 04/26/25 23:05 Respiratory Rate 16 04/26/25 23:05 Blood Pressure 108/63 04/26/25 23:05 Pulse Oximetry 98 04/26/25 23:05 Oxygen Delivery Method Room Air 04/26/25 23:05 <Clem Villa, DO - Last Filed: 04/27/25 01:19> Medical Decision Making MDM Narrative Medical decision making narrative: Patient was signed out to me pending lab work and imaging. Chest x-ray reviewed by myself and the radiologist shows no acute concerning abnormalities. Lab work returned showing no acute concerning abnormalities. At this point I do believe she is safe for discharge. She has been asymptomatic for several hours now. She is safe for discharge and agrees with this plan. <Clem Villa, DO - Last Filed: 04/27/25 01:19> Lab Data Labs: Lab Results 04/27/25 04/27/25 Range/Units 00:05 00:34 WBC 6.89 (4.50-11.00) K/uL RBC 4.78 (4.00-5.20) m/uL Hgb 12.2 (12.0-16.0) gm/dL Hct 38.4 (33.0-51.0) % MCV 80 (80-100) fL MCH 26 (26-34) pg MCHC 32 (32-36) gm/dL RDW Coeff of Naina 13.3 (11.5-15.5) % Plt Count 281 (140-440) K/uL Neut % (Auto) 54.2 (42.0-72.0) % Lymph % (Auto) 34.0 (20-44) % Sublette % (Auto) 5.8 (0.0-11.0) % Eos % (Auto) 5.5 (0.0-7.0) % Baso % (Auto) 0.4 (0.0-3.0) % Neut # (Auto) 3.73 (1.7-7.0) K/uL Lymph # (Auto) 2.34 (0.90-2.90) K/uL Sublette # (Auto) 0.40 (0.00-0.90) K/UL Eos # (Auto) 0.38 (0.00-0.50) K/uL Baso # (Auto) 0.03 (0.00-0.30) K/uL Abs Immat Gran (auto) 0.01 (0.00-0.30) K/uL Imm/Tot Granulo (auto) 0.1 % D-Dimer Quant (PE/DVT) 0.10 (0.00-0.50) ug/ml Sodium 136 (135-149) mmol/L Potassium 3.5 L (3.6-5.1) mmol/L Chloride 100 (96-114) mmol/L Carbon Dioxide 26 (20-32) mmol/L Anion Gap 10 (7-15) mEq/L BUN 14 (5-24) mg/dL Creatinine 0.7 (0.5-1.5) mg/dL Estimated Creat Clear 115.01 Estimated GFR 123 ml/min Glucose 92 (60-115) mg/dL Calcium 9.5 (8.4-10.6) mg/dL Total Bilirubin 0.2 (0.1-1.5) mg/dL AST 22 (12-35) U/L ALT 18 (4-35) U/L Alkaline Phosphatase 57 (40-150) U/L Troponin I < 0.01 (0.01-0.04) ng/mL Total Protein 7.6 (6.0-8.3) g/dL Albumin 4.6 (3.3-5.0) g/dL HCG, Qual Negative (Negative) Urine Color Yellow (Yellow) Urine Appearance Clear (Clear) Urine pH 7.0 (5.0-8.5) Ur Specific [place] 1.015 (1.000-1.030) Urine Protein Negative (Negative) Urine Glucose (UA) Negative (Negative) Urine Ketones Negative (Negative) Urine Blood Negative (Negative) Urine Nitrite Negative (Negative) Urine Bilirubin Negative (Negative) Urine Urobilinogen 0.2 (0.2-1.0) Ur Leukocyte Esterase Negative (Negative) <Felipe Santos MD - Last Filed: 04/26/25 23:38> Lab Results 04/27/25 04/27/25 Range/Units 00:05 00:34 WBC 6.89 (4.50-11.00) K/uL RBC 4.78 (4.00-5.20) m/uL Hgb 12.2 (12.0-16.0) gm/dL Hct 38.4 (33.0-51.0) % MCV 80 (80-100) fL MCH 26 (26-34) pg MCHC 32 (32-36) gm/dL RDW Coeff of Naina 13.3 (11.5-15.5) % Plt Count 281 (140-440) K/uL Neut % (Auto) 54.2 (42.0-72.0) % Lymph % (Auto) 34.0 (20-44) % Sublette % (Auto) 5.8 (0.0-11.0) % Eos % (Auto) 5.5 (0.0-7.0) % Baso % (Auto) 0.4 (0.0-3.0) % Neut # (Auto) 3.73 (1.7-7.0) K/uL Lymph # (Auto) 2.34 (0.90-2.90) K/uL [place]lette # (Auto) 0.40 (0.00-0.90) K/UL Eos # (Auto) 0.38 (0.00-0.50) K/uL Baso # (Auto) 0.03 (0.00-0.30) K/uL Abs Immat Gran (auto) 0.01 (0.00-0.30) K/uL Imm/Tot Granulo (auto) 0.1 % D-Dimer Quant (PE/DVT) 0.10 (0.00-0.50) ug/ml Sodium 136 (135-149) mmol/L Potassium 3.5 L (3.6-5.1) mmol/L Chloride 100 (96-114) mmol/L Carbon Dioxide 26 (20-32) mmol/L Anion Gap 10 (7-15) mEq/L BUN 14 (5-24) mg/dL Creatinine 0.7 (0.5-1.5) mg/dL Estimated Creat Clear 115.01 Estimated GFR 123 ml/min Glucose 92 (60-115) mg/dL Calcium 9.5 (8.4-10.6) mg/dL Total Bilirubin 0.2 (0.1-1.5) mg/dL AST 22 (12-35) U/L ALT 18 (4-35) U/L Alkaline Phosphatase 57 (40-150) U/L Troponin I < 0.01 (0.01-0.04) ng/mL Total Protein 7.6 (6.0-8.3) g/dL Albumin 4.6 (3.3-5.0) g/dL HCG, Qual Negative (Negative) Urine Color Yellow (Yellow) Urine Appearance Clear (Clear) Urine pH 7.0 (5.0-8.5) Ur Specific [place] 1.015 (1.000-1.030) Urine Protein Negative (Negative) Urine Glucose (UA) Negative (Negative) Urine Ketones Negative (Negative) Urine Blood Negative (Negative) Urine Nitrite Negative (Negative) Urine Bilirubin Negative (Negative) Urine Urobilinogen 0.2 (0.2-1.0) Ur Leukocyte Esterase Negative (Negative) <Clem Villa DO - Last Filed: 04/27/25 01:19> Imaging Data Chest x-ray: Attestation: I have reviewed the pertinent imaging results. <Clem Villa DO - Last Filed: 04/27/25 01:19> Radiologist's impression: No acute cardiopulmonary abnormality. Dictated by Alex Bowen MD @ 04/27/2025 12:03:07 AM <Clem Villa DO - Last Filed: 04/27/25 01:19> Discharge Plan Discharge Clinical Impression: Atypical chest pain <Felipe Santos MD - Last Filed: 04/26/25 23:38> Patient Disposition: Home, Self-Care <Felipe Santos MD - Last Filed: 04/26/25 23:38> Condition: Stable <Felipe Santos MD - Last Filed: 04/26/25 23:38> Instructions: Noncardiac Chest Pain (ED) <Felipe Santos MD - Last Filed: 04/26/25 23:38> Additional Instructions: Return to emergency department for new or worsening symptoms. Follow-up with your primary care provider about your chest pain <Felipe Santos MD - Last Filed: 04/26/25 23:38> Prescriptions: No Action lorazepam 0.5 mg tablet 0.5 mg PO DAILY PRN (Reason: anxiety) prednisone 20 mg tablet 40 mg PO DAILY 5 Days Qty: 10 0RF omeprazole 40 mg capsule,delayed release(DR/EC) 40 mg PO DAILY Patient Comments: TAKE ONE CAPSULE BY MOUTH EVERY DAY . metoprolol succinate 25 mg tablet extended release 24 hr 12.5 mg PO DAILY paroxetine HCl 40 mg tablet 40 mg PO QAM propranolol 20 mg tablet 20 mg PO TID PRN (Reason: Palpitations) Qty: 30 2RF <Felipe Santos MD - Last Filed: 04/26/25 23:38> Follow Up/Referrals: Provider,Not a Local [Primary Care Provider, Family Practice] <Felipe Santos MD - Last Filed: 04/26/25 23:38> Stand Alone Forms: MyHealth Info Instructions <Felipe Santos MD - Last Filed: 04/26/25 23:38>
--- NOTE | 2025-04-26 23:45 | CRLHL7_ITS ---
For Patients: As a result of the Century Cures Act, medical imaging exams and procedure reports are released immediately into your electronic medical record. You may view this report before your referring provider. If you have questions, please contact your health care provider. INDICATION: Chest pain. TECHNIQUE: Chest 2 views. COMPARISON: Chest x-ray 12/17/2024. FINDINGS: Cardiovascular and mediastinum: Heart size is normal. Unremarkable mediastinum. Lungs and pleural spaces: Lungs are clear. No sign of infiltrate or mass. No sign of pleural effusion. No pneumothorax. Bones and soft tissues: No significant findings. IMPRESSION: No acute cardiopulmonary abnormality. Dictated by Alex Bowen MD @ 04/27/2025 12:03:07 AM (Electronically Signed)
--- OUTSIDE RECORDS SUMMARY | 2025-04-26 23:52 | XMS_ITS | Encounter Summary ---
Author Organization [facility] Address [address] [place] [address] Care Team Providers Care Base Filler Operator Name Role Phone Lita Oseguera Unavailable Unavailable Marija Edgar APRN BARKER OPERATOR Primary Care Provider + Chanelle Mccann APRN CNM Unavailab le Kyara De La Fuente RN Unavailable [phone] Marija Edgar APRN BARKER OPERATOR Unavailable Mynor Broussard MD Unavailable Keisha Dotson MD Unavailable Galo Burrell MD Unavailable Unavailable Cristina Wood Unavailable Diana Desir [facility] Unavailable Rain Galaviz PA-C Unavailable Summer Lara MD Unavailable [phone] Summer Lara MD Unavailable [phone] Summer Lara MD Unavailable [phone] Tavia Wyatt MD Unavailable Johnny Murillo MD Unavailable Erica Farrell APRN BARKER OPERATOR Unavailable VikasTeresita [facility] Unavailable Tavia Wyatt MD Unavailable ThangDiana [facility] Unavailable Rich Barrett MD Unavailable [phone] Neil Kent MD Unavailable Roney Story DPM Unavailable Erica Farrell APRN BARKER OPERATOR Unavailable Thang Diana [place] [facility] Unavailable Jelena aDvid Unavailable Galo Burrell MD Unavailable Unavailable Livan Sharif MD Unavailable Livan Sharif MD Unavailable Catherine Cm MD Unavailable + Valery Veronica-C Unavailable [phone] Catherine Cm MD Unavailable + Johnny Murillo MD Unavailable [phone] Brea Quinn RICE FIELD WORKER BARKER OPERATOR Unavailable [phone] Brea Quinn RICE FIELD WORKER BARKER OPERATOR Unavailable [phone] Jose Francisco Johnson MD Unavailable Livan Sharif MD Unavailable Catherine Cm MD Unavailable + Sydnie Martinez RN Unavailable Unavailable Alfonso Renteria MD Unavailable Esha Grimm PA-C Primary Care Provider Cheng Todd PA-C Unavailable Radha Lomeli RICE FIELD WORKER BARKER OPERATOR Unavailable Jelena David OD Unavailable [phone] Pao Joseph RN Unavailable Unavailable Esha Grimm Adam PA-C Unavailable [phone] Valery Veronica PA-C Unavailable [phone] Rey Tay MD Unavailable Rocky Zepeda DO Unavailable Philip Dumnot MD Unavailable Meredith Carrera PA-C Unavailable [phone] Neil Kent MD Unavailable Juan Pablo Emmanuel MD Unavailable Audrey Waite PA-C Unavailable JeremíasValery damon PA-C Unavailable Herminia Hatch MD Unavailable Jelena David OD Unavailable Juan Pablo Emmanuel MD Unavailable Maru Man PA-C Unavailable Maru Man PA-C Unavailable Jelena David OD Unavailable Fabiano Correa NP Unavailable Walter Nowak MD Unavailable Liset Márquez MD Unavailable Lauren Coronado [facility] Unavailable Encounter Details Date Type Department Care Team (Late st Contact Info) Description 01/02/2021 MyC Medical Advice [address] [phone] Kierra Eller Social History Tobacco [...] Recorded PHQ-2 Score 3 09/29/2020 [facility] - Occupational Stress Questionnaire Answer [...] CDT Legal Sex Female 4:13 AM MEDICAL COLLECTIONS SPECIALIST Gender Identity Female 03/02/2021 5:45 PM [...] AM CDT Office Visit [facility] [address], [address] [place] [phone] Liset Márquez MD [address] [place] [address] 05/30/2025 2:45 PM MEDICAL COLLECTIONS SPECIALIST Office Visit [facility] [address] [facility] [address] [place] [phone] Fabiano Correa, WET PRESS TENDER [address] [place], [place] [address] Walter Nowak MD [address] [place], [place] [address] 08/07/2025 8:15 AM MEDICAL COLLECTIONS SPECIALIST Office Visit [facility] [address] [facility] [address] [place] [phone] Lucien Grimes MD [address] [phone] 08/21/2025 9:00 AM MEDICAL COLLECTIONS SPECIALIST Office Visit [facility] [address] [phone] Neil Kent MD [address] [place], [place] [phone] 10/09/2025 10:45 AM CDT Virtual Visit [facility] [address] [place] [phone] Meredith Carrera PA-C [address] [place] [address] documented as of this encounter Visit Diagnoses Not on filedocumented in this encounter Additional Health Concerns Infection Onset Date Last Indicated Resolved Time Rule Out COVID-19 05/11/2021 05/11/2021 05/13/2021 10:18 AM CDT Rule Out COVID-19 07/13/2021 07/13/2021 07/14/2021 3:04 PM MEDICAL COLLECTIONS SPECIALIST Rule Out COVID-19 07/18/2021 07/18/2021 07/20/2021 1:56 PM MEDICAL COLLECTIONS SPECIALIST COVID-19 07/18/2021 07/18/2021 08/08/2021 11:3 9 PM MEDICAL COLLECTIONS SPECIALIST Rule Out COVID-19 12/18/2021 12/18/2021 12/19/2021 11:34 AM CDT Rule Out COVID-19 02/24/2022 02/24/2022 02/25/2022 1:08 PM CDT Rule Out COVID-19 04/26/2022 04/26/2022 04/26/2022 6:47 AM CDT Rule Out COVID-19 05/17/2022 05/17/2022 05/17/2022 10:20 PM MEDICAL COLLECTIONS SPECIALIST Rule Out COVID-19 06/09/2022 06/09/2022 06/09/2022 9:35 AM MEDICAL COLLECTIONS SPECIALIST COVID-19 06/09/2022 06/09/2022 06/30/2022 11:4 1 PM MEDICAL COLLECTIONS SPECIALIST Rule Out COVID-19 11/10/2022 11/10/2022 11/11/2022 [...] as of this encounter Care Teams Base Filler Operator Relationship Specialty Start Date End Date Marija Edgar APRN BARKER OPERATOR PCP - General Nurse Practitioner 04/30/20 04/14/23 Esha Grimm PA-C [address] [place] [phone] PCP - General Family Medicine 05/04/23 Lita Oseguera Personal Advocate & Liaison (PAL) 02/28/20 03/27/23 Chanelle Mccann APRN CNAdam [address] [facility] [address] [place], [place] 14[address] Assigned OBGYN Provider 05/02/2005/09 Kyara De La Fuente, RN Specialty Delivery Driver Assistant Neurology 06/04/20 03/05/21 Marija Edgar APRN BARKER OPERATOR Assigned PCP 06/08/20 04/29/23 Mynor Broussard MD [address] [place], [place] [phone] Assigned Surgical Provider 06/01/20 11/28/21 Keisha Dotson MD [address] [place] [address] Assigned Neuroscience Provider 06/04/20 04/01/23 Galo Burrell MD Assigned Heart and Vascular Provider 10/05/20 04/02/22 Nina Cristina Financial Resource Worker 02/09/21 02/09/21 Diana Desir, [facility] [address] [place] [address] Pharmacist Pharmacist 04/17/21 Rain Galaviz PA-C [address] [place] [address] [place] [address] Physician Glass Lined Tank Repairer Dermatology 04/28/21 Summer Lara MD [address] [place] [address] Assigned OBGYN Provider 05/10/2105/23 Summer Lara MD [address] [place] [address] Assigned OBGYN Provider 05/31/21 2 Summer Lara MD [address] [place] [address] Assigned OBGYN Provider 05/24/2105/30 Tavia Wyatt MD [address] [place] [address] [phone] Dermatology 07/14/21 Johnny Murillo MD [address] [place] [address] Assigned Musculoskeletal Provider 08/30/21 03/17/22 Erica Farrell APRN BARKER OPERATOR [address] [facility] [address] [place] [address] Nurse Practitioner Cardiovascular Disease 09/09/21 Teresita Bean, [facility] [address] [facility] [address] [place] [phone] Pharmacist Pharmacist 09/24/21 09/29/21 Tavia Wyatt MD [address] [place] [address] Assigned Surgical Provider 11/29/21 05/07/22 [facility] [address] [place] [address] Assigned MTM Pharmacist 01/02/22 Rich Barrett MD [address] [place] [address] Physician Ophthalmology 01/21/22 Neil Kent MD [address] [place], [place] 7[address] Dermatology 02/24/22 Roney Story DPM [address] [facility] [address] [place] [address] Assigned Musculoskeletal Provider 03/20/22 08/13/22 Erica Farrell APRN BARKER OPERATOR [address] [place] [address] Assigned Heart and Vascular Provider 04/03/22 04/16/22 [facility] [address] [place] [address] Assigned MTM Pharmacist 04/07/22 Jelena David [place] [address] [facility] [place] [address] Assigned Surgical Provider 05/08/22 10/08/22 Galo Burrell MD Assigned Heart and Vascular Provider 04/17/22 06/11/22 Livan Sharif MD [address] [place] [address] Cardiovascular Disease 05/14/22 Livan Sharif MD [address] [place] [address] Assigned Heart and Vascular Provider 06/12/22 07/23/22 Catherine Cm MD [address] [place] [address] Cardiovascular Disease 07/21/22 Valery Veronica PAUcheC [address] [place] [address] Physician Glass Lined Tank Repairer Dermatology 07/21/22 Catherine Cm MD [address] [place] [address] Assigned Heart and Vascular Provider 07/24/22 11/05/22 Johnny Murillo MD [address] [place], [place] [phone] Assigned Musculoskeletal Provider 08/14/22 10/08/22 Brea Quinn APRN BARKER OPERATOR [address] [place], [place] [phone] Nurse Practitioner Dermatology 09/21/22 Brea Quinn APRN BARKER OPERATOR [address] [place] [address] [place] 357272 Assigned Surgical Provider 10/09/22 05/01/24 [place] [address] [place] [address] [address] Assigned Musculoskeletal Provider 10/09/22 05/01/24 Livan Sharif MD [address] [facility] [address] [place] [address] Assigned Heart and Vascular Provider 11/06/22 11/12/22 Catherine Cm MD [address] [place] [phone] Assigned Heart and Vascular Provider 11/13/22 05/27/23 Sydnie Martinez RN Personal Advocate & Liaison (PAL) Family Medicine 03/28/23 07/31/23 Alfonso Renteria MD [address] [facility] [address] [place] [address] Assigned Neuroscience Provider 04/02/23 09/29/24 Cheng Todd PA-C [address] [place] [address] Assigned PCP 04/30/23 07/15/23 Radha Lomeli, ARLENE BARKER OPERATOR [address] [facility] [address] [place], [place] [address] Assigned Heart and Vascular Provider 05/28/23 11/29/24 Jelena David OD [address] [facility] [address] [place] [id number] Ophthalmology 06/15/23 Pao Joseph, VJ Personal Advocate & Liaison (PAL) Nurse 08/01/23 11/07/23 Esha Grimm PA-C [address] [place] [phone] Assigned PCP 07/16/23 Valery Veronica PA-C [address] [place] [address] Physician Glass Lined Tank Repairer Dermatology 09/19/23 Rey Tay MD [address] [place] [address] 295335 Gastroenterology 09/20/23 Rocky Zepeda DO [address] [place] [address] 687895 Physician Gastroenterology 09/20/23 Philip Dumnot MD [address] [place] [address] Physician Ophthalmology 09/22/23 Meredith Carrera PA-C [address] [place] [address] Assigned Gastroenterology Provider 11/01/23 Neil Kent MD [address] [id number] MD Dermatology 11/02/23 [place] [address] [place] [facility] [place] [place] [address] Neurological Surgery 12/26/23 Audrey Waite PA-C [address] [place], [place] [address] Physician Glass Lined Tank Repairer Dermatology 02/28/24 Valery Veronica PA-C [address] [place] [address] Physician Glass Lined Tank Repairer Dermatology 04/10/24 Herminia Hatch MD [address] [place], [place] [phone] Assigned Rheumatology Provider 07/02/[address] David [address] [facility] [place] [address] Ophthalmology 08/30/24 [place] [address] [place] [facility] [address] [place] [address] Assigned Neuroscience Provider 09/30/24 Maru Man PA-C [address] [place] [address] Physician Glass Lined Tank Repairer Dermatology 10/03/24 Maru Man PA-C [address] [place] [address] Physician Glass Lined Tank Repairer Dermatology 10/22/24 [address] [address] [facility] [place] [address] Assigned Surgical Provider 10/31/24 Fabiano Correa, WET PRESS TENDER [address] [place] [address] Assigned Heart and Vascular Provider 11/30/24 Walter Nowak MD [address] [place] [address] Physician Clinical Cardiac Electrophysiology 03/01/25 Liset Márquez MD [address] [facility] 300 [place] [address] business center manager 03/13/25 Lauren Coronado, [facility] 9 [place], [place] [address] Pharmacist Pharmacist 04/15/25 documented as of this encounter
--- OUTSIDE RECORDS SUMMARY | 2025-04-26 23:52 | XMS_ITS | Encounter Summary ---
Author Organization [place] Address [address] [place] [address] Care Team Providers Care Java Performance Engineer Name Role Phone Diana Desir [facility] Unavailable Rain Galaviz PA-C Unavailable Tavia Wyatt MD Unavailable [phone] Erica Farrell APRN POLYGRAPH TECHNICIAN Unavailable Rich Barrett MD Unavailable [phone] Neil Kent MD Unavailable Diana Desir [facility] Unavailable Livan Sharif MD Unavailable Catherine Cm MD Unavailable + Valery Veronica PA-C Unavailable [phone] Brea Quinn SWEATER DESIGNER POLYGRAPH TECHNICIAN Unavailable Brea Quinn SWEATER DESIGNER POLYGRAPH TECHNICIAN Unavailable Jose Francisco Johnson MD Unavailable Alfonso Renteria MD Unavailable [phone] Esha Grimm PA-C Primary Care Provider [phone] Lomeli, Radha E SWEATER DESIGNER POLYGRAPH TECHNICIAN Unavailable Jelena David OD Unavailable Esha Grimm PA-C Unavailable [phone] Valery Veronica PA-C Unavailable Rey Tay [...] Unavailable Liset Márquez MD Unavailable Lauren Coronado [facility] Unavailable [phone] Encounter Details Date Type Department Care Team (Late st Contact Info) Description 04/24/2024 [facility] [address] [facility] [address] [place] [address] Radha Lomeli, SWEATER DESIGNER POLYGRAPH TECHNICIAN [address] [place] [address] Social History Tobacco Use Types Packs/Day Years [...] 1 02/07/2024 [facility] Occupational Stress Questionnaire Answer [...] exercise at this level? 30 min 03/28/2024 [place] Depression Scale Answer Date Recorded [place] Depression Score 5 01/14/2021 Last EPDS [...] an overnight senior living, or couch-surfing.) Yes 03/28/2024 Are you worried [...] CDT Legal Sex Female 4:13 AM PROJECT MANAGER INDUSTRIAL Gender Identity Female 03/02/2021 5:45 PM CDT Sexual Orientation Straight 02/28/2020 12 :51 AM CDT documented as of this encounter Miscellaneous Notes * Telephone Encounter - Leo, Marija, RN - 05/01/2024 9:38 AM CDT December's result note from patient's 14-day event monitor: Preliminary Heart monitor results reviewed Showed normal sinus rhythm No concerning arrhythmias Pierce, GERRI Updated patient via Appterat. documented in this encounter Plan of Treatment Upcoming Encounters Date Type Department Care Team (Late st Contact Info) Description 04/30/2025 10:30 AM CDT Office Visit [facility] [address], [address] [place] [phone] Liset Márquez MD [address] [facility] 300 [place] [address] 05/30/2025 2:45 PM PROJECT MANAGER INDUSTRIAL Office Visit [address] [phone] Fabiano Correa, BRYCE 9220 [place], [place] 734685 Walter Nowak MD 1398 [place], [place] 7[address] 08/07/2025 8:15 AM PROJECT MANAGER INDUSTRIAL Office Visit [facility] [address] [phone] Lucien Grimes MD [address] [address] 08/21/2025 9:00 AM PROJECT MANAGER INDUSTRIAL Office Visit [facility] [address] [phone] Neil Kent MD 500 [place] [address] 10/09/2025 10:45 AM CDT Virtual Visit [facility] [place] [address] [facility] 4th [place] [phone] Meredith Carrera PA-C [address] [place] [address] documented as of this encounter Visit Diagnoses [...] as of this encounter Care Teams Java Performance Engineer Relationship Specialty Start Date End Date Esha Grimm PA-C [address] [place] [phone] PCP - General Family Medicine 05/04/23 Diana Desir, [facility] 3033 [place] [address] Pharmacist Pharmacist 04/17/21 Rain Galaviz PA-C [address] [place] [address] [place] [address] Physician Senior Engineer Dermatology 04/28/21 Tavia Wyatt MD [address] [place] [address] [facility] [place] [phone] Dermatology 07/14/21 Erica Farrell APRN POLYGRAPH TECHNICIAN [address] [place], [place] 6429[address] Nurse Practitioner Cardiovascular Disease 09/09/21 Rich Barrett MD [address] [place], [place] [address] Physician Ophthalmology 01/21/22 Neil Kent MD 500 [place], [place] 5[address]85 Dermatology 02/24/22 [facility] [address] [place] [address] 829916 Assigned [facility] Pharmacist 04/07/22 Livan Sharif MD [address] [place] [address] Cardiovascular Disease 05/14/22 Catherine Cm MD [address] [place] [address] Cardiovascular Disease 07/21/22 Valery Veronica PAUcheC [address] [place] [address] Physician Senior Engineer Dermatology 07/21/22 Brea Quinn APRN POLYGRAPH TECHNICIAN [address] [place] [address] Nurse Practitioner Dermatology 09/21/22 Brea Quinn APRN POLYGRAPH TECHNICIAN 6401 [facility] [place] [address] Assigned Surgical Provider 10/09/22 05/01/24 [place] [address] [address] [facility] 300 [place] [address] Assigned Musculoskeletal Provider 10/09/22 05/01/24 Alfonso Renteria MD 5775 [facility] 200 [place], [place] 973676 Assigned Neuroscience Provider 04/02/23 09/29/24 Radha Lomeli APRN POLYGRAPH TECHNICIAN 6[address] [facility] [address] [place] [address] Assigned Heart and Vascular Provider 05/28/23 11/29/24 Jelena David OD [address] [facility] [address] Ophthalmology 06/15/23 Esha Grimm PA-C [address] [place] [address] Assigned PCP 07/16/23 Valery Veronica PA-C 9 [place] [address] Physician Senior Engineer Dermatology 09/19/23 Rey Tay MD [address] [place] [address] Gastroenterology 09/20/23 Rocky Zepeda DO [address] [place] [address] Physician Gastroenterology 09/20/23 Philip Dumont MD [address] [place] [address] Physician Ophthalmology 09/22/23 Meredith Carrera PA-C [address] [place] [address] Assigned Gastroenterology Provider 11/01/23 Neil Kent MD [address] [place] [address] MD Dermatology 11/02/23 [place] [address] [address] Neurological Surgery 12/26/23 Audrey Waite PA-C [address] [place] [address] Physician Senior Engineer Dermatology 02/28/24 Valery Veronica PA-C 509110 [address], [place] [address] Physician Senior Engineer Dermatology 04/10/24 Herminia Hatch MD [address] [place] [address] Assigned Rheumatology Provider 07/02/24 Jelena David, OD 3305 [facility] [place] [address] Ophthalmology 08/30/24 [place] [address] [place] [address] Assigned Neuroscience Provider 09/30/24 Maru Man PA-C [address], [place] [address] Physician Senior Engineer Dermatology 10/03/24 Maru Man PA-C [address] [place] [address] Physician Senior Engineer Dermatology 10/22/24 Jelena David, OD 3305 [facility] [place] [address] Assigned Surgical Provider 10/31/24 Fabiano Correa, DRENCHER [address] [place] [address] Assigned Heart and Vascular Provider 11/30/24 Walter Nowak MD 6405 [place] [address] Physician Clinical Cardiac Electrophysiology 03/01/25 Liset Márquez MD [address] [facility] 300 [place] [address] spray gun striper 03/13/25 Lauren Coronado, [facility] 9 [place] [address] Pharmacist Pharmacist 04/15/25 documented as of this encounter
--- OUTSIDE RECORDS SUMMARY | 2025-04-26 23:52 | XMS_ITS | Encounter Summary ---
Author Organization [place] Address [address] [place] [address] Care Team Providers Care Brake Drum Lathe Operator Name Role Phone Lita Oseguera Unavailable Unavailable Marija Edgar APRN MECHANICAL TEST ENGINEER Primary Care Provider + Chanelle Mccann APRN CNM Unavailab le Kyara De La Fuente RN Unavailable Marija Edgar APRN MECHANICAL TEST ENGINEER Unavailable [phone] Mynor Broussard MD Unavailable [phone] Keisha Dotson MD Unavailable Galo Burrell MD Unavailable Unavailable Cristina Wood Unavailable Diana Desir [facility] Unavailable Rain Galaviz PA-C Unavailable Summer Lara MD Unavailable [phone] Summer aLra MD Unavailable [phone] Summer Lara MD Unavailable Tavia Wyatt MD Unavailable Johnny Murillo MD Unavailable Erica Farrell APRN MECHANICAL TEST ENGINEER Unavailable VikasTeresita [facility] Unavailable Tavia Wyatt MD Unavailable ThangDiana [facility] Unavailable Rich Barrett MD Unavailable [phone] Neil Kent MD Unavailable Roney Story DPM Unavailable Erica Farrell APRN MECHANICAL TEST ENGINEER Unavailable Thang Diana [place] [facility] Unavailable Jelena David Unavailable Galo Burrell MD Unavailable Unavailable Livan Sharif MD Unavailable Livan Sharif MD Unavailable Catherine Cm MD Unavailable + Valery Veronica-C Unavailable [phone] Catherine Cm MD Unavailable + Johnny Murillo MD Unavailable [phone] Brea Quinn PUPPY SITTER MECHANICAL TEST ENGINEER Unavailable [phone] Brea Quinn PUPPY SITTER MECHANICAL TEST ENGINEER Unavailable [phone] Jose Francisco Johnson MD Unavailable Livan Sharif MD Unavailable Catherine Cm MD Unavailable + Sydnie Martinez RN Unavailable Unavailable Alfonso Renteria MD Unavailable Esha Grimm PA-C Primary Care Provider Cheng Todd PA-C Unavailable Radha Lomeli PUPPY SITTER MECHANICAL TEST ENGINEER Unavailable Jelena David OD Unavailable [phone] Pao Joseph RN Unavailable Unavailable [facility] [...] Unavailable Liset Márquez MD Unavailable Lauren Coronado [facility] Unavailable [phone] Encounter Details Date Type Department Care Team (Late st Contact Info) Description 01/06/2021 Orders Only [facility] - Surgical Specialties Service Line 2450 [place] [address] Saurabh Marcial MD [address] [place] [address] Indication for care in labor and delivery, [...] do you attend chur or orthodoxy services? More than 4 times per year [...] Answer Date Recorded PHQ-2 Score 3 09/29/2020 [facility] [...] CDT Legal Sex Female 4:13 AM COMPOSITION INSTRUCTOR Gender Identity Female 03/02/2021 5:45 PM [...] Description 04/30/2025 10:30 AM CDT Office Visit [facility] [address], [address] [facility] [place] [phone] Liset Márquez MD [address] [place] [address] 05/30/2025 2:45 PM COMPOSITION INSTRUCTOR Office Visit [place] [address] [phone] Fabiano Correa, SOUND PERSON 6404 [place], [place] 503175 Walter Nowak MD 0768 [place], [place] 156925 08/07/2025 8:15 AM COMPOSITION INSTRUCTOR Office Visit [facility] [address] [phone] Lucien Grimes MD [address] 57[address] 08/21/2025 9:00 AM COMPOSITION INSTRUCTOR Office Visit [facility] [address] [phone] Neil Kent MD [address] [place] [address] 10/09/2025 10:45 AM CDT Virtual Visit [facility] [address] 4th [place] [phone] Meredith Carrera PA-C [address] [place] [address] 846535 documented as of this encounter Results * Asymptomatic COVID-19 Virus (Coronavirus) by PCR (01/09/2021 10:44 AM CDT) COVID-19 Virus PCR to [facility] - Source Nasopharyngeal 01/09/2021 10:45 AM CDT [facility] COVID-19 Virus [facility] to [facility] - Result Test received-See reflex to IDDL test SARS CoV2 (COVID-19) Virus RT-PCR 01/09/2021 6:32 PM CDT [facility] Specimen from nasopharyngeal structure (specimen) 01/09/2021 10:44 AM CDT 01/09/2021 10:45 AM CDT Saurabh Marcial MD LAB - MICRO GENERAL DONYA HERRERA Final Result [facility], [facility] [address] [place], [place] [address] [address] [place], [place] [address] [phone] documented in this encounter Visit Diagnoses Diagnosis Indication for care in labor and delivery, antepartum- Primary Unspecified indication for care or intervention related to labor and delivery, antepartum documented in this encounter Additional Health Concerns Infection Onset Date Last Indicated Resolved Time Rule Out COVID-19 05/11/2021 05/11/2021 05/13/2021 10:18 AM CDT Rule Out COVID-19 07/13/2021 07/13/2021 07/14/2021 3:04 PM COMPOSITION INSTRUCTOR Rule Out COVID-19 07/18/2021 07/18/2021 07/20/2021 1:56 PM COMPOSITION INSTRUCTOR COVID-19 07/18/2021 07/18/2021 08/08/2021 11:3 9 PM COMPOSITION INSTRUCTOR Rule Out COVID-19 12/18/2021 12/18/2021 12/19/2021 11:34 AM CDT Rule Out COVID-19 02/24/2022 02/24/2022 02/25/2022 1:08 PM CDT Rule Out COVID-19 04/26/2022 04/26/2022 04/26/2022 6:47 AM CDT Rule Out COVID-19 05/17/2022 05/17/2022 05/17/2022 10:20 PM COMPOSITION INSTRUCTOR Rule Out COVID-19 06/09/2022 06/09/2022 06/09/2022 9:35 AM COMPOSITION INSTRUCTOR COVID-19 06/09/2022 06/09/2022 06/30/2022 11:4 1 PM COMPOSITION INSTRUCTOR Rule Out COVID-19 11/10/2022 11/10/2022 11/11/2022 [...] documented as of this encounter Care Teams Brake Drum Lathe Operator Relationship Specialty Start Date End Date Marija Edgar APRN MECHANICAL TEST ENGINEER PCP - General Nurse Practitioner 04/30/20 04/14/23 Esha Grimm PA-C [address] [place] [phone] PCP - General Family Medicine 05/04/23 Lita Oseguera Personal Advocate & Liaison (PAL) 02/28/20 03/27/23 [place] [address] 234367 Assigned OBGYN Provider 05/02/2005/09 Kyara De La Fuente RN Specialty Procurement Professional Neurology 06/04/20 03/05/21 Marija Edgar APRN MECHANICAL TEST ENGINEER Assigned PCP 06/08/20 04/29/23 Mynor Broussard MD [address] [place] [address] 166915 Assigned Surgical Provider 06/01/20 11/28/21 Keisha Dotson MD [address] [place] [address] 680665 Assigned Neuroscience Provider 06/04/20 04/01/23 Galo Burrell MD Assigned Heart and Vascular Provider 10/05/20 04/02/22 Cristina Wood Financial Resource Worker 02/09/21 02/09/21 Diana Desir, [facility] [address] [place] [address] Pharmacist Pharmacist 04/17/21 Rain Galaviz PA-C [address] [place] [address] [place] [address] Physician Show Host/Hostess Dermatology 04/28/21 Summer Lara MD [address] [place] [address] Assigned OBGYN Provider 05/10/2105/23 Summer Lara MD [address] [place] [address] Assigned OBGYN Provider 05/31/21 Summer Lara MD [address] [place] [address] [place], [place] 153434 Assigned OBGYN Provider 05/24/2105/30 Tavia Wyatt MD [address] [place], [place] 6199[address] Dermatology 07/14/21 Johnny Murillo MD [address] [place] [address] Assigned Musculoskeletal Provider 08/30/21 03/17/22 Erica Farrell APRN MECHANICAL TEST ENGINEER [address] [facility] [address] [place] [address] Nurse Practitioner Cardiovascular Disease 09/09/21 Teresita Bean [facility] [address] [place] [address] Pharmacist Pharmacist 09/24/21 09/29/21 Tavia Wyatt MD [address] [place] [address] Assigned Surgical Provider 11/29/21 05/07/22 Diana Desir, [facility] [place] [address] Assigned MTM Pharmacist 01/02/22 Rich Barrett MD [facility] [place], [place] 562976 Physician Ophthalmology 01/21/22 Neil Kent MD 500 [place], [place] 0[address]45 Dermatology 02/24/22 Roney Story DPM [address] [facility] 300 [place] [address] Assigned Musculoskeletal Provider 03/20/22 08/13/22 Erica Farrell APRN MECHANICAL TEST ENGINEER 1700 [place] [address] Assigned Heart and Vascular Provider 04/03/22 04/16/22 Diana Desir, [facility] [place] [address] Assigned MTM Pharmacist 04/07/22 Jelena David OD [address] [facility] [place] [address] Assigned Surgical Provider 05/08/22 10/08/22 Galo Burrell MD Assigned Heart and Vascular Provider 04/17/22 06/11/22 Livan Sharif MD [address] [place] [address] Cardiovascular Disease 05/14/22 Livan Sharif MD [address] [place] [address] Assigned Heart and Vascular Provider 06/12/22 07/23/22 Catherine Cm MD [address] [place] [address] Cardiovascular Disease 07/21/22 Valery Veronica, PA-C [address] [place] [address] Physician Show Host/Hostess Dermatology 07/21/22 Catherine Cm MD [address] [place] [address] Assigned Heart and Vascular Provider 07/24/22 11/05/22 Johnny Murillo MD [facility] [address] [address] Assigned Musculoskeletal Provider 08/14/22 10/08/22 Brea Quinn APRN MECHANICAL TEST ENGINEER [address] [place] [address] [place] [address] Nurse Practitioner Dermatology 09/21/22 Brea Quinn APRN MECHANICAL TEST ENGINEER 6401 [facility] [place] [address] Assigned Surgical Provider 10/09/22 05/01/24 [place] [address] [address] [facility] 300 [place] [address] Assigned Musculoskeletal Provider 10/09/22 05/01/24 Livan Sharif MD [address] [place] [phone] [place] [address] Assigned Heart and Vascular Provider 11/06/22 11/12/22 Catherine Cm MD [address] 5925000 [place] [address] Assigned Heart and Vascular Provider 11/13/22 05/27/23 Sydnie Martinez RN Personal Advocate & Liaison (PAL) Family Medicine 03/28/23 07/31/23 Alfonso Renteria MD 5775 [facility] 200 [place] [address] Assigned Neuroscience Provider 04/02/23 09/29/24 Cheng Todd PA-C [address] [place] [address] Assigned PCP 04/30/23 07/15/23 Radha Lomeli APRN MECHANICAL TEST ENGINEER 6[address] [facility] [address] [place] [address] Assigned Heart and Vascular Provider 05/28/23 11/29/24 Jelena David OD [address] [facility] [place] [address] MD Ophthalmology 06/15/23 Pao Joseph, VJ Personal Advocate & Liaison (PAL) Nurse 08/01/23 11/07/23 Esha Grimm PA-C [address] [place] [phone] Assigned PCP 07/16/23 Valery Veronica PA-C [address] [place] [address] 348505 Physician Show Host/Hostess Dermatology 09/19/23 Rey Tay MD [address] [place] [address] 400155 Gastroenterology 09/20/23 Rocky Zepeda DO [address] [place] [address] 260485 Physician Gastroenterology 09/20/23 Philip Dumont MD [address] [place] [address] 356935 Physician Ophthalmology 09/22/23 Meredith Carrera PA-C [address] [place] [address]405 Assigned Gastroenterology Provider 11/01/23 Neil Kent MD [address] [place] [address] Dermatology 11/02/23 [place] [address] [place] [address] Neurological Surgery 12/26/23 Audrey Waite PA-C 500 [place] [address] Physician Show Host/Hostess Dermatology 02/28/24 Valery Veronica PA-C [address] [place] [address] Physician Show Host/Hostess Dermatology 04/10/24 Herminia Hatch MD [address] [place] [address] 75277125 Assigned Rheumatology Provider 07/02/24 Jelena David OD [address] [place] [address] [place] [address] Ophthalmology 08/30/24 [place] [address] [facility] [place] [address] Assigned Neuroscience Provider 09/30/24 Maru Man PA-C [address] [place] [address] Physician Show Host/Hostess Dermatology 10/03/24 Maru Man PA-C [address] [place] [address] Physician Show Host/Hostess Dermatology 10/22/24 Jelena David OD 3[address] [facility] [place] [address] Assigned Surgical Provider 10/31/24 Fabiano Correa NP [address] [place] 431685 Assigned Heart and Vascular Provider 11/30/24 Walter Nowak MD [address] [place] 100605 Physician Clinical Cardiac Electrophysiology 03/01/25 Liset Márquez MD [address] [place], [place] 0[address] senior product designer 03/13/25 Lauren Coronado, [facility] 9 [place], [place] [phone] Pharmacist Pharmacist 04/15/25 documented as of this encounter
--- OUTSIDE RECORDS SUMMARY | 2025-04-26 23:52 | XMS_ITS | Encounter Summary ---
Author Organization [facility] Address [address] [place] [address] Care Team Providers Care Ict Programmer Name Role Phone Diana Desir [facility] Unavailable Rain GalavizC Unavailable Tavia Wyatt MD Unavailable [phone] Erica Farrell APRN PERSONNEL RESEARCH PSYCHOLOGIST Unavailable Rich Barrett MD Unavailable [phone] Neil Kent MD Unavailable ThangKendrickDiana Stanislav [facility] Unavailable Livan Sharif MD Unavailable Catherine Cm MD Unavailable + Valery Veronica-C Unavailable [phone] Brea Quinn APRN PERSONNEL RESEARCH PSYCHOLOGIST Unavailable Esha Grimm PA-C Primary Care Provider Jelena David OD Unavailable Esha Grimm PA-C Unavailable [phone] Valery Veronica PA-C Unavailable [phone] Rey Tay MD Unavailable Duane Rocky Unavailable Philip Dumont MD Unavailable [phone] Meredith Carrera PA-C Unavailable Neil Kent MD Unavailable Juan Pablo Emmanuel MD Unavailable Audrey Waite PA-C Unavailable Valery Veronica PA-C Unavailable Herminia Hatch MD Unavailable Jelena David OD Unavailable Juan Pablo Emmanuel MD Unavailable [phone] Maru Man PA-C Unavailable Maru Man PA-C Unavailable Jelena David OD Unavailable Fabiano Correa NP Unavailable [phone] Walter Nowak MD Unavailable Liset Márquez MD Unavailable Lauren Coronado [facility] Unavailable Encounter Details Date Type Department Care Team (Late st Contact Info) Description 12/24/2024 [facility] [address] [phone] [facility] Social History Tobacco Use Types [...] Answer Date Recorded PHQ-2 Score 1 10/24/2024 [facility] - [...] exercise at this level? 20 min 05/07/2024 [place] Depression Scale Answer Date Recorded [place] Depression Score 5 01/14/2021 Last EPDS [...] PM CDT Legal Sex Female 4:13 AM TURNTABLE OPERATOR Gender Identity Female 03/02/2021 5:45 PM CDT Sexual Orientation Straight 02/28/2020 12 :51 AM CDT documented as of this encounter Plan of Treatment Upcoming Encounters Date Type Department Care Team (Late st Contact Info) Description 04/30/2025 10:30 AM CDT Office Visit [facility] [address], [address] [place] [phone] Liset Márquez MD [address] [place], [place] [address] 05/30/2025 2:45 PM TURNTABLE OPERATOR Office Visit [facility] [address] [facility] [address] [place] [phone] Fabiano Correa NP [address] [place] [address] Walter Nowak MD [address] [place] [id number] 08/07/2025 8:15 AM TURNTABLE OPERATOR Office Visit [facility] [address] [facility] [address] [place] [phone] Lucien Grimes MD [address] [facility] [place] [id number] 08/21/2025 9:00 AM TURNTABLE OPERATOR Office Visit [facility] [address] [phone] Neil Kent MD [address] [place] [address] 10/09/2025 10:45 AM CDT Virtual Visit [facility] Gastroenterology [address] 4[address] [place] [phone] Meredith Carrera PA-C [address] [place] [address] [phone] documented as of this encounter Visit Diagnoses Not on filedocumented in this encounter Additional Health Concerns Assessment Noted Time PHQ-9 Depression Total Score: 5 10/25/19 25 10:38 AM CDT documented as of this encounter Care Teams Ict Programmer Relationship Specialty Start Date End Date Esha Grimm PA-C [address] [place] [phone] PCP - General Family Medicine 05/04/23 Diana Desir, [facility] [address] [place] [address] Pharmacist Pharmacist 04/17/21 Rain Galaviz PA-C [address] [place] [address] [address] [place] [address] Physician Welder/Fitter Dermatology 04/28/21 Tavia Wyatt MD [address] [place] [address] ENMA [place] [address] Dermatology 07/14/21 Erica Farrell APRN PERSONNEL RESEARCH PSYCHOLOGIST [address] [place] [address] Nurse Practitioner Cardiovascular Disease 09/09/21 Rich Barrett MD [address] [place] [address] Physician Ophthalmology 01/21/22 Neil Kent MD [address] [place], [place] 264165 Dermatology 02/24/22 Diana Desir, [facility] [address] [place] [address] Assigned MTM Pharmacist 04/07/22 Livan Sharif MD [address] [facility] [address] [place] [phone] Cardiovascular Disease 05/14/22 Catherine Cm MD [address] [facility] [address] [place], [place] [address] Cardiovascular Disease 07/21/22 Valery Vreonica, PA-C [address] [place] [address] 099015 Physician Welder/Fitter Dermatology 07/21/22 Brea Quinn APRN PERSONNEL RESEARCH PSYCHOLOGIST [address] [place] [address] [id number] Nurse Practitioner Dermatology 09/21/22 [place] David [place] [address] [facility] [address] [place] [id number] Ophthalmology 06/15/23 Esha Grimm PA-C [address] [place] [phone] Assigned PCP 07/16/23 Valery Veronica, PA-C [address] [place] [address] Physician Welder/Fitter Dermatology 09/19/23 Rey Tay MD [address] [place] [address] Gastroenterology 09/20/23 Rocky Zepeda DO [address] [place] [address] Physician Gastroenterology 09/20/23 Philip Dumont MD [address] [place] [address] Physician Ophthalmology 09/22/23 Meredith Carrera PA-C [address] [place] [address] Assigned Gastroenterology Provider 11/01/23 Neil Kent MD [address] [address] Dermatology 11/02/23 [place] [address] [place], [place] 3[address] Neurological Surgery 12/26/23 Audrey Waite PA-C [address] [place] [address] Physician Welder/Fitter Dermatology 02/28/24 Valery Veronica PA-C [id number] [address] [place] [address] Physician Welder/Fitter Dermatology 04/10/24 Herminia Hatch MD [address] [place] [address] [id number] Assigned Rheumatology Provider 07/02/24 Jelena David OD [address] [place] [address] [place] [address] Ophthalmology 08/30/24 [place] [address] [place] [id number] Assigned Neuroscience Provider 09/30/24 Maru Man PA-C [address] [place] [address] Physician Welder/Fitter Dermatology 10/03/24 Maru Man PA-C [address] [place] [address] Physician Welder/Fitter Dermatology 10/22/24 [place]elena David OD [address] [facility] [place] [address] Assigned Surgical Provider 10/31/24 Fabiano Correa NP [address] [facility] [place] [id number] Assigned Heart and Vascular Provider 11/30/24 Walter Nowak MD [address] [place] 28[address] Physician Clinical Cardiac Electrophysiology 03/01/25 Liset Márquez MD [address] [phone] manager spring 03/13/25 Lauren Coronado, [facility] [address] [place], [place] [phone] Pharmacist Pharmacist 04/15/25 documented as of this encounter
--- OUTSIDE RECORDS SUMMARY | 2025-04-26 23:52 | XMS_ITS | Clinical Summary ---
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 [address], [address] [place] [address], [facility] [phone] * TSH with free T4 reflex (01/29/2025 4:21 PM CDT) TSH 1.71 0.30 - 4.20 uIU/mL 01/29/2025 5:05 PM CDT LABORATORY Blood BLOOD SPECIMEN / Unknown Venipuncture / Unknown 01/29/2025 4:21 PM CDT 01/29/2025 4:21 PM CDT us Ebony Nur PA-C LAB - BLOOD ORDERABL ES Final Result LABORATORY [facility] [address] floor, [address] [place] [address], [place] [phone] * Comprehensive metabolic panel (01/29/2025 4:21 PM CDT) Sodium 138 135 - 145 mmol/L 01/29/2025 4:44 PM CDT CS LABORATORY Potassium (POCT) 3.9 3.4 - 5.3 mmol/L 01/29/2025 4:44 PM CDT CS LABORATORY Chloride (POCT) 108 94 - 109 mmol/L 01/29/2025 4:44 PM CDT CS LABORATORY Carbon Dioxide (CO2) (POCT) 23 20 - 32 mmol/L 01/29/2025 4:44 PM CDT CS LABORATORY Anion Gap (POCT) 7 3 - 14 mmol/L 01/29/2025 4:44 PM CDT CS LABORATORY Urea Nitrogen (POCT) 10 7 - 30 mg/dL 01/29/2025 4:44 PM CDT CS LABORATORY Creatinine 0.90 0.52 - 1.04 mg/dL 01/29/2025 4:44 PM CDT CS LABORATORY GFR Estimate >90 >60 mL/min/1.7 3m2 01/29/2025 4:44 PM CDT CS LABORATORY Calcium 9.9 8.5 - 10.1 mg/dL 01/29/2025 4:44 PM CDT CS LABORATORY Glucose (POCT) 96 70 - 99 mg/dL 01/29/2025 4:44 PM CDT CS LABORATORY Alkaline Phosphatase 44 40 - 150 U/L 01/29/2025 4:44 PM CDT CS LABORATORY AST 27 0 - 45 U/L 01/29/2025 4:44 PM CDT CS LABORATORY ALT 18 0 - 50 U/L 01/29/2025 4:44 PM CDT CS LABORATORY Protein Total 7.6 6.8 - 8.8 g/dL 01/29/2025 4:44 PM CDT CS LABORATORY Albumin (POCT) 3.9 3.4 - 5.0 g/dL 01/29/2025 4:44 PM CDT CS LABORATORY Bilirubin Total 0.9 0.2 - 1.3 mg/dL 01/29/2025 4:44 PM CDT CS LABORATORY Blood BLOOD SPECIMEN / Unknown Venipuncture / Unknown 01/29/2025 4:21 PM CDT 01/29/2025 4:21 PM CDT Ebony Nur PA-C LAB - BLOOD ORDERABL ES Final Result CS LABORATORY [facility] [place] [facility] [address], [address] [place] [address] * EKG 12-lead complete w/read - Clinics (01/29/2025 3:33 PM CDT) Ebony Nur PA-C ECG ORDERABLES Shira l Result * ZIO PATCH MAIL OUT (01/29/2025 11:17 AM CDT) Zio Prelim Results Patient had a min HR of 28 bpm, max HR of 143 bpm, and avg HR of 79 bpm. Predominant underlying rhythm was Sinus Rhythm. Slight P wave morphology changes were noted. Second Degree AV Block-Mobitz I (Wenckebach) was present. Isolated SVEs were rare (<1.0%), and no SVE Couplets or SVE Triplets were present. Isolated VEs were rare (<1.0%), and no VE Couplets or VE Triplets were present. CARDIOLOGY RESULTS Anatomical Region Laterality Modality Other 01/29/2025 11:1 7 AM CDT Narrative 01/29/2025 5:15 PM CDT Patient had a min HR of 28 bpm, max HR of 143 bpm, and avg HR of 79 bpm. Predominant underlying rhythm was Sinus Rhythm. Second Degree AV Block-Mobitz I (Wenckebach) was present. Isolated SVEs were rare (<1.0%), and no SVE Couplets or SVE Triplets were present. Isolated VEs were rare (<1.0%), and no VE Couplets or VE Triplets were present. Agreed with findings Symptoms reported (4 episode(s)) was/were related to sinus rhythm (90-110 bpm). Monitoring period: 4-day us Fabiano Correa NP CV CARDIAC SERVICES ORDERA BLES Final Result * HIV Antigen Antibody Combo (12/28/2024 9:16 [...] BLOOD ORDERABLES Final R esult [facility]ATORY [facility] [place] Core Lab [address] [facility], [address] [place] [address] * Hepatitis C antibody (08/03/2024 3:04 PM NEGATIVE DEVELOPER) Hepatitis C Antibody Nonreactive Nonreactive 08/03/2024 8:55 PM NEGATIVE DEVELOPER [facility] Comment:A nonreactive screen ing test [...] Unknown Venipuncture / Unknown 08/03/2024 3:04 PM NEGATIVE DEVELOPER 08/03/2024 3:05 PM NEGATIVE DEVELOPER Jaron Hager PA-C LAB - BLOOD ORDERABLES Final Result U LABORATORY [facility] [place] [place] Core Lab [address] [facility], [address] [place] [address] * Pap screen reflex to HPV [...] 09/22/2021 3:48 PM CDT Marija Edgar APRN ROBERTA BAKER - BEAKER AP Final Re sult [facility] LABS [facility] Special[facility] Lab [address] [facility] [address], [address] [place] [address], [facility] [phone] from Last 3 Months or Most Recently Relevant to Health Maintenance Insurance [address] [place] [address] [facility] [address] [place] [address] [facility] * Guarantor: Kim Johnson Account Type Relation to Patient Date of Phone Billing Address Medication Therapy Self [address] [place] [phone] [facility] Address: [address] [place] [address] * Guarantor: Kim Johnson Account Type Relation to Patient Date of Phone Billing Address Medication Therapy Self [address] [place] [phone] [facility] [address] Advance Directives For more information, please contact: [phone] * Full Code (Latest Code Status on File) Date Activated Date Inactivated Comments 11/22/2024 7:03 AM 11/22/2024 12:36 PM All basic a nd advanced life-sustaining interventions are performed as appropriate Question Answer Comments Code status determined by: Other (please norman t) * Full Code Date Activated Date Inactivated Comments 01/14/2021 7:36 AM 01/15/2021 6:05 PM All basic and advanced life-sustaining interventions are performed as appropriate Question Answer Comments Code status determined by: Discussion with corona nt/ legal decision maker Care Teams Technical Sales Engineer Relationship Specialty Start Date End Date Esha Grimm PA-C [address] [place] [phone] PCP - General Family Medicine 05/04/23 Diana Desir, [facility] [address] [place] [address] Pharmacist Pharmacist 04/17/21 Rain Galaviz PA-C [address] [facility] [place] [address] Physician Care Professional Dermatology 04/28/21 Tavia Wyatt MD [address] [place] [address] [address] [facility] [place] [id number] Dermatology 07/14/21 Erica Farrell APRN [employer] [address] [place], [place] [address] Nurse Practitioner Cardiovascular Disease 09/09/21 Rich Barrett MD [address] [place] [address] Physician Ophthalmology 01/21/22 Neil Kent MD [address] [place] [address] [id number] MD Dermatology 02/24/22 Diana Desir, [facility] [address] [place], [place] [id number] Assigned [place] Pharmacist 04/07/22 Livan Sharif MD [address] [place] [address] Cardiovascular Disease 05/14/22 Catherine Cm MD [address] [place] [phone] Cardiovascular Disease 07/21/22 Valery Veronica, PA-C [address] [place] [address] Physician Care Professional Dermatology 07/21/22 Brea Quinn APRN [employer] [address] [place] [address] Nurse Practitioner Dermatology 09/21/22 Jelena David OD [address] [place] [address] [place] [address] MD Ophthalmology 06/15/23 Esha Grimm PA-C [address] [place] [address] Assigned PCP 07/16/23 Valery Veronica PA-C [address] [place] [address] [id number] Physician Care Professional Dermatology 09/19/23 Rey Tay MD [address] [place] [address] MD Gastroenterology 09/20/23 Rocky Zepeda DO [address] [place] [address] [phone] Physician Gastroenterology 09/20/23 Philip Dumont MD [address] [place] [address] [phone] Physician Ophthalmology 09/22/23 Meredith Carrera PA-C [address] [place] [address] [phone] Assigned Gastroenterology Provider 11/01/23 Neil Kent MD [address] [id number] MD Dermatology 11/02/23 [place] [address] [place] [address] Neurological Surgery 12/26/23 Audrey Waite PA-C [address] [place] [address] Physician Care Professional Dermatology 02/28/24 Valery Veronica PA-C [id number] [address] [place] [address] Physician Care Professional Dermatology 04/10/24 Herminia Hatch MD [address] [place] [address] [id number] Assigned Rheumatology Provider 07/02/24 Jelena David, SONJA [address] [place] [address] [place] [address] Ophthalmology 08/30/24 [place] [address] [place] [address] Assigned Neuroscience Provider 09/30/24 Maru Man PA-C [address] [place] [address] Physician Care Professional Dermatology 10/03/24 Maru Man PA-C [address] [place] [address] Physician Care Professional Dermatology 10/22/24 Jelena David OD [address] [facility] [place] [address] Assigned Surgical Provider 10/31/24 Fabiano Correa NP [address] [facility] [place] [address] Assigned Heart and Vascular Provider 11/30/24 Walter Nowak MD [address] [place] [address] Physician Clinical Cardiac Electrophysiology 03/01/25 Liset Márquez MD [address] [facility] [address] [place] [address] branch coordinator 03/13/25 Lauren Coronado, [facility] [address] [place] [address] [phone] Pharmacist Pharmacist 04/15/25
--- OUTSIDE RECORDS SUMMARY | 2025-04-26 23:52 | XMS_ITS | Encounter Summary ---
Author Organization [place] Address [address] [place] [address] Care Team Providers Care Industrial Eng Name Role Phone Lita Oseguera Unavailable Unavailable Marija Edgar APRN MACHINE EDGE BANDER Primary Care Provider + Chanelle Mccann ENVELOPE SEALER CNM Unavailab le Kyara De La Fuente RN Unavailable [phone] Marija Edgar APRN MACHINE EDGE BANDER Unavailable Mynor Broussard MD Unavailable [phone] Keisha Dotson MD Unavailable [phone] Stacey Briones VEST PRESSER Unavailable [phone] Mary Mejia Unavailable Unavailable Galo Burrell MD Unavailable Unavailable Cristina Wood Unavailable Lesley Guillermo CHW Unavailable [phone] Meredith Bedoya Unavailable Unavailable Cristina Wood Unavailable Diana Desir [facility] Unavailable Rain Galaviz PA-C Unavailable Summer Lara MD Unavailable [phone] Summer Lara MD Unavailable [phone] Summer Lara MD Unavailable [phone] Tavia Wyatt MD Unavailable [phone] Johnny Murillo MD Unavailable [phone] Erica Farrell APRN MACHINE EDGE BANDER Unavailable Teresita Bean [facility] Unavailable Tavia Wyatt MD Unavailable [phone] Diana [place] [facility] Unavailable [phone] Rich Barrett MD Unavailable Neil Kent MD Unavailable Roney Story DPM Unavailable Bud, Erica Guidry ENVELOPE SEALER MACHINE EDGE BANDER Unavailable Diana Desir [facility] Unavailable [phone] Tommy Davidmao Garcia Unavailable Galo Burrell MD Unavailable Unavailable Livan Sharif MD Unavailable + Livan Sharif MD Unavailable + Catherine Cm MD Unavailable + Valery Veronica PA-C Unavailable [phone] Catherine Cm MD Unavailable + Johnny Murillo MD Unavailable [phone] ENVELOPE SEALER MACHINE EDGE BANDER Unavailable [phone] Brea Quinn ENVELOPE SEALER MACHINE EDGE BANDER Unavailable [phone] Jose Francisco Johnson MD Unavailable Livan Sharif MD Unavailable Catherine Cm MD Unavailable + Sydnie Martinez RN Unavailable Unavailable Alfonso Renteria MD Unavailable [phone] Esha Grimm PA-C Primary Care Provider Cheng Todd PA-C Unavailable Radha Lomeli APRN MACHINE EDGE BANDER Unavailable Jelena David OD Unavailable Pao Joseph RN Unavailable Unavailable Esha Grimm PA-C Unavailable [phone] Valery Veronica PA-C Unavailable Rey Tay [...] [place] [facility] Unavailable Encounter Details Date Type Department Care Team (Late st Contact Info) Description 10/02/2020 MyC Medical Advice [facility] Care Coordination [facility] [address] [place] [phone] Anselmo Stacey Kulwinder, [facility] Social History Tobacco Use Types [...] Answer Date Recorded PHQ-2 Score 3 09/29/2020 [facility] - Occup[facility] [...] PM CDT Legal Sex Female 4:13 AM PRESSURE SUPERVISOR Gender Identity Female 03/02/2021 5:45 PM [...] Description 04/30/2025 10:30 AM CDT Office Visit [facility] [address], [address] [place] [address] Liset Márquez MD [address] [facility] 300 [place] [address] 05/30/2025 2:45 PM PRESSURE SUPERVISOR Office Visit [facility] [address] [phone] Fabiano Correa NP 6405 [place], [place] 598545 Walter Nowak MD 4874 [place], [place] 285605 08/07/2025 8:15 AM PRESSURE SUPERVISOR Office Visit [facility] [address] [phone] Lucien Grimes MD [address] [address] 08/21/2025 9:00 AM PRESSURE SUPERVISOR Office Visit [address] [place] [phone] Neil Kent MD [address] [place] [address] 10/09/2025 10:45 AM CDT Virtual Visit [facility] [place] [address] [place] [address] 4th [place] [phone] Meredith Carrera PA-C [address] [place] [address] documented as of this encounter Visit Diagnoses Not on filedocumented in this encounter Additional Health Concerns Infection Onset Date Last Indicated Resolved Time Rule Out COVID-19 11/05/2020 11/05/2020 11/06/2020 1:09 PM CDT Rule Out COVID-19 05/11/2021 05/11/2021 05/13/2021 10:18 AM CDT Rule Out COVID-19 07/13/2021 07/13/2021 07/14/2021 3:04 PM PRESSURE SUPERVISOR Rule Out COVID-19 07/18/2021 07/18/2021 07/20/2021 1:56 PM PRESSURE SUPERVISOR COVID-19 07/18/2021 07/18/2021 08/08/2021 11:3 9 PM PRESSURE SUPERVISOR Rule Out COVID-19 12/18/2021 12/18/2021 12/19/2021 11:34 AM CDT Rule Out COVID-19 02/24/2022 02/24/2022 02/25/2022 1:08 PM CDT Rule Out COVID-19 04/26/2022 04/26/2022 04/26/2022 6:47 AM CDT Rule Out COVID-19 05/17/2022 05/17/2022 05/17/2022 10:20 PM PRESSURE SUPERVISOR Rule Out COVID-19 06/09/2022 06/09/2022 06/09/2022 9:35 AM PRESSURE SUPERVISOR COVID-19 06/09/2022 06/09/2022 06/30/2022 11:4 1 PM PRESSURE SUPERVISOR Rule Out COVID-19 11/10/2022 11/10/2022 11/11/2022 [...] as of this encounter Care Teams Industrial Eng Relationship Specialty Start Date End Date Marija Edgar APRN MACHINE EDGE BANDER PCP - General Nurse Practitioner 04/30/20 04/14/23 Esha Grimm PA-C [address] [place] [phone] PCP - General Family Medicine 05/04/23 Lita Oseguera Personal Advocate & Liaison (PAL) 02/28/20 03/27/23 Chanelle Mccann APRN CNM [address] [address] Assigned OBGYN Provider 05/02/2005/09 Kyara De La Fuente, RN Specialty Block Hand Neurology 06/04/20 03/05/21 Marija Edgar APRN CNP Assigned PCP 06/08/20 04/29/23 Mynor Broussard MD 909 [place], [place] [phone] Assigned Surgical Provider 06/01/20 11/28/21 Keisha Dotson MD 909 [place] [address] Assigned Neuroscience Provider 06/04/20 04/01/23 Stacey Briones, [facility] Lead Block Hand Primary Care - CC 08/11/20 12/30/20 Mary Mejia Financial Resource Worker 09/02/20 10/06/20 Galo Burrell MD Assigned Heart and Vascular Provider 10/05/20 04/02/22 Cristina Wood Financial Resource Worker 10/07/20 10/14/20 Lesley Guillermo, [facility] Community Health Worker 10/23/20 12/30/20 Meredith Bedoya Financial Resource Worker 10/23/20 11/23/20 Cristina Wood Financial Resource Worker 02/09/21 02/09/21 Diana Desir, [facility] 30[address] [place], [place] 912[address] Pharmacist Pharmacist 04/17/21 Rani Galaviz PA-C [address] [place] [address] [place] [address] Physician Commission Associate Dermatology 04/28/21 Summer Lara MD [address] [place] [address] Assigned OBGYN Provider 05/10/2105/23 Summer Lara MD [address] [place] [address] Assigned OBGYN Provider 05/31/21 Summer Lara MD [address] [place] [address] Assigned OBGYN Provider 05/24/2105/30 Tavia Wyatt MD [address] [place] [address] Dermatology 07/14/21 Johnny Murillo MD [facility] [address] [facility] [address] [place] [address] Assigned Musculoskeletal Provider 08/30/21 03/17/22 Erica Farrell APRN MACHINE EDGE BANDER 6405 [facility] [address] [place] [address] Nurse Practitioner Cardiovascular Disease 09/09/21 Teresita Bean, [facility] [address] [place] [address] Pharmacist Pharmacist 09/24/21 09/29/21 Tavia Wyatt MD [address] [place] [address] Assigned Surgical Provider 11/29/21 05/07/22 Diana Desir [facility] [address] [place] [address] Assigned MTM Pharmacist 01/02/22 Rich Barrett MD [address] [place] [address] Physician Ophthalmology 01/21/22 Neil Kent MD 500 [place] [address] Dermatology 02/24/22 Roney Story DPM [address] [facility] [address] [place] [address] Assigned Musculoskeletal Provider 03/20/22 08/13/22 Erica Farrell APRN MACHINE EDGE BANDER [facility] [place] [address] Assigned Heart and Vascular Provider 04/03/22 04/16/22 Diana Desir [facility] [address] [place] [address] Assigned MTM Pharmacist 04/07/22 Jelena David OD [address] [place] [address] [place] [address] Assigned Surgical Provider 05/08/22 10/08/22 Galo Burrell MD Assigned Heart and Vascular Provider 04/17/22 06/11/22 Livan Sharif MD [address] [place] [address] Cardiovascular Disease 05/14/22 Livan Sharif MD [address] [address] [place] [address] Assigned Heart and Vascular Provider 06/12/22 07/23/22 Catherine Cm MD [address] [place] 501975 Cardiovascular Disease 07/21/22 Valery Veronica, PA-C [address] [place] [address] 918175 Physician Commission Associate Dermatology 07/21/22 Catherine Cm MD [address] [address] [place] 052875 Assigned Heart and Vascular Provider 07/24/22 11/05/22 Johnny Murillo MD [address] [place] [address] 045594 Assigned Musculoskeletal Provider 08/14/22 10/08/22 Brea Quinn APRN MACHINE EDGE BANDER [address] [place] [address] 736515 Nurse Practitioner Dermatology 09/21/22 Brea Quinn APRN MACHINE EDGE BANDER [address] [place] [address] [place] 005682 Assigned Surgical Provider 10/09/22 05/01/24 [place] [address] [place] [address] Assigned Musculoskeletal Provider 10/09/22 05/01/24 Livan Sharif MD [address] [address] [place] [address] Assigned Heart and Vascular Provider 11/06/22 11/12/22 Catherine Cm MD [address] [address] [place] [address] Assigned Heart and Vascular Provider 11/13/22 05/27/23 Sydnie Martinez RN Personal Advocate & Liaison (PAL) Family Medicine 03/28/23 07/31/23 Alfonso Renteria MD 5775 [facility] 200 [place] [address] Assigned Neuroscience Provider 04/02/23 09/29/24 Cheng Todd PA-C [address] [place] [address] [phone] Assigned PCP 04/30/23 07/15/23 Radha Lomeli APRN MACHINE EDGE BANDER [address] [place] [address] Assigned Heart and Vascular Provider 05/28/23 11/29/24 Jelena David OD 3305 [facility] [place] [address] MD Ophthalmology 06/15/23 Pao Joseph, RN Personal Advocate & Liaison (PAL) Nurse 08/01/23 11/07/23 Esha Grimm PA-C [address] [place] [address] Assigned PCP 07/16/23 Valery Veronica PA-C [address] [place] [address] 846955 Physician Commission Associate Dermatology 09/19/23 Rey Tay MD [address] [place] [address] 579815 MD Gastroenterology 09/20/23 Rocky Zepeda DO [address] [place] [address] 041865 Physician Gastroenterology 09/20/23 Philip Dumont MD [address] [place] [address] 825175 Physician Ophthalmology 09/22/23 Meredith Carrera PA-C [address] [place] [address] 153645 Assigned Gastroenterology Provider 11/01/23 Neil Kent MD [address] [place] [address] 729720 Dermatology 11/02/23 [place] [address] [place] [address] Neurological Surgery 12/26/23 Audrey Waite PA-C 500 [place] [address] Physician Commission Associate Dermatology 02/28/24 Valery Veronica PA-C [address] [place] [address] Physician Commission Associate Dermatology 04/10/24 Herminia Hatch MD [address] [place] [address] [id number] Assigned Rheumatology Provider 07/02/24 Jelena David, SONJA [address] [place] [address] [place] [address] Ophthalmology 08/30/24 [place] [address] [place] [address] Assigned Neuroscience Provider 09/30/24 Maru Man PA-C [address] [place] [address] Physician Commission Associate Dermatology 10/03/24 Maru Man PA-C [address] [place] [address] Physician Commission Associate Dermatology 10/22/24 Jelena David OD [address] [place] [address] [place] [address] Assigned Surgical Provider 10/31/24 Fabiano Correa, MERCHANDISE COLLECTOR [address] [place] [address] Assigned Heart and Vascular Provider 11/30/24 Walter Nowak MD [address] [place] [address] Physician Clinical Cardiac Electrophysiology 03/01/25 Liset Márquez MD 606 24[facility] S [facility] 300 [place] [address] avionics safety inspector 03/13/25 Lauren Coronado, [facility] 9 [place], [place] 841215 Pharmacist Pharmacist 04/15/25 documented as of this encounter
--- OUTSIDE RECORDS SUMMARY | 2025-04-26 23:52 | XMS_ITS | Encounter Summary ---
Author Organization [place] Address [address] [place] [address] Care Team Providers Care Locomotive Crane Operator Helper Name Role Phone Diana Desir [facility] Unavailable [phone] Rain GalavizC Unavailable [phone] Tavia Wyatt MD Unavailable [phone] Erica Farrell APRN FURNITURE SALES CONSULTANT Unavailable Rich Barrett MD Unavailable [phone] Neil Kent MD Unavailable ThangKendrickDiana Stanislav [facility] Unavailable Livan Sharif MD Unavailable Catherine Cm MD Unavailable + Valery Veronica-C Unavailable [phone] Brea Quinn APRN FURNITURE SALES CONSULTANT Unavailable Esha Grimm PA-C Primary Care Provider Jelena David OD Unavailable [phone] Esha Grimm PA-C Unavailable [phone] Valery Veronica PA-C Unavailable Rey Tay MD Unavailable DuaneRocky Unavailable Philip Dumont MD Unavailable Meredith Carrera PA-C Unavailable [phone] Neil Kent MD Unavailable Juan Pablo Emmanuel MD Unavailable [phone] Audrey [place] PA-C Unavailable Valery Veronica PA-C Unavailable Herminia Hatch MD Unavailable Jelena David OD Unavailable [phone] Juan Pablo Emmanuel MD Unavailable Maru Man PA-C Unavailable [phone] Maru Man PA-C Unavailable Jelena David OD Unavailable [phone] Fabiano Correa NP Unavailable [phone] Walter Nowak MD Unavailable Liset Márquez MD Unavailable Lauren Coronado [facility] Unavailable [phone] Encounter Details Date Type Department Care Team (Late st Contact Info) Description 12/20/2024 [facility] Medical Advice Adult Call Center [address] [place] [phone] Flory Haque, BAT BOY/GIRL Social History Tobacco Use Types Packs/Day Years [...] Answer Date Recorded PHQ-2 Score 1 10/24/2024 [facility] [...] exercise at this level? 20 min 05/07/2024 [place] Depression Scale Answer Date Recorded [place] Depression Score 5 01/14/2021 Last EPDS [...] PM CDT Legal Sex Female 4:13 AM CHILD'S NURSE Gender Identity Female 03/02/2021 5:45 PM CDT Sexual Orientation Straight 02/28/2020 12 :51 AM CDT documented as of this encounter Plan of Treatment Upcoming Encounters Date Type Department Care Team (Late st Contact Info) Description 04/30/2025 10:30 AM CDT Office Visit [facility] [address], [address] [place] [address] Liset Márquez MD [address] [place] [address] 05/30/2025 2:45 PM CHILD'S NURSE Office Visit [facility] [place] 6405 [facility] [address] [place] [phone] Fabiano Correa NP [address] [place] [address] Walter Nowak MD [address] [place] 85[address] 08/07/2025 8:15 AM CHILD'S NURSE Office Visit [facility] [place] 6405 [facility] [address] [place] [phone] Lucien Grimes MD 6408 [facility] [address] [place] [address] 08/21/2025 9:00 AM CHILD'S NURSE Office Visit [facility] [address] [phone] Neil Kent MD [address] [place] [address] 436045 10/09/2025 10:45 AM CDT Virtual Visit [facility] Gastroenterology [address]th [place] [phone] Meredith Carrera PA-C [address] [place] [address] 892895 documented as of this encounter Visit Diagnoses Not on filedocumented in this encounter Additional Health Concerns Assessment Noted Time PHQ-9 Depression Total Score: 5 10/25/19 25 10:38 AM CDT documented as of this encounter Care Teams Locomotive Crane Operator Helper Relationship Specialty Start Date End Date Esha Grimm PA-C [address] [place] [phone] PCP - General Family Medicine 05/04/23 Diana Desir, [facility] [address] [place] [address] Pharmacist Pharmacist 04/17/21 Rain Galaviz PA-C [address] [place] [address] [address] [place] [address] Physician Accounting Methods Analyst Dermatology 04/28/21 Tavia Wyatt MD [address] [place] [address] [place] [address] Dermatology 07/14/21 Erica Farrell APRN FURNITURE SALES CONSULTANT [address] [place] [address] Nurse Practitioner Cardiovascular Disease 09/09/21 Rich Barrett MD [address] [place] [address] Physician Ophthalmology 01/21/22 Neil Kent MD 500 [place], [place] 252435 Dermatology 02/24/22 Diana Desir, [facility] 3033 [place] [address] Assigned MTM Pharmacist 04/07/22 Livan Sharif MD [address] [address] [place] 489915 Cardiovascular Disease 05/14/22 Catherine Cm MD 6405 [facility] [address] [place], [place] 963335 Cardiovascular Disease 07/21/22 Valery Veronica, PA-C [address] [place] [address] 889335 Physician Accounting Methods Analyst Dermatology 07/21/22 Brea Quinn APRN FURNITURE SALES CONSULTANT [address] [place] [address] 049975 Nurse Practitioner Dermatology 09/21/22 [place] [address] [place] [address] [place] [phone] Ophthalmology 06/15/23 Esha Grimm PA-C [address] [place] [phone] Assigned PCP 07/16/23 Valery Veronica, PA-C [address] [place] [address] Physician Accounting Methods Analyst Dermatology 09/19/23 Rey Tay MD [address] [place] [address] Gastroenterology 09/20/23 Rocky Zepeda DO [address] [place] [address] Physician Gastroenterology 09/20/23 Philip Dumont MD 516 [place] [address] Physician Ophthalmology 09/22/23 Meredith Carrera PA-C [address] [place] [address] Assigned Gastroenterology Provider 11/01/23 Neil Kent MD [address] [address] Dermatology 11/02/23 [place] [address] [facility] [place] [address] Neurological Surgery 12/26/23 Audrey Waite PA-C [address] [place] [address] Physician Accounting Methods Analyst Dermatology 02/28/24 Valery Veronica PA-C [address]63 [address] [place] [address] Physician Accounting Methods Analyst Dermatology 04/10/24 Herminia Hatch MD [address] [place] [address] [phone] Assigned Rheumatology Provider 07/02/24 Jelena David OD [address] [place] [address] [place] [address] Ophthalmology 08/30/24 [place] [address] [place] 583297 Assigned Neuroscience Provider 09/30/24 Maru Man PA-C [address] [place] [address] Physician Accounting Methods Analyst Dermatology 10/03/24 Maru Man PA-C [address] [place] [address] Physician Accounting Methods Analyst Dermatology 10/22/24 Jelena David OD [address] [facility] [place] [address] Assigned Surgical Provider 10/31/24 Fabiano Correa NP [address] [place] [address] Assigned Heart and Vascular Provider 11/30/24 Walter Nowak MD [address] [place] 942205 Physician Clinical Cardiac Electrophysiology 03/01/25 Liset Márquez MD [address] [address] supervisor inspecting 03/13/25 Lauren Coronado, [facility] 909 [place], [place] [phone] Pharmacist Pharmacist 04/15/25 documented as of this encounter
--- OUTSIDE RECORDS SUMMARY | 2025-04-26 23:53 | XMS_ITS | Clinical Summary ---
Author Organization [facility] Address [address] [address] Phone Care Team Providers Care Utility Locate Technician Name Role Phone Unavailable Primary Care Provider [...] [facility] Commercial Address: [address] [place] [address]
--- OUTSIDE RECORDS SUMMARY | 2025-04-26 23:53 | XMS_ITS | Encounter Summary ---
Author Organization [facility] Address [address] [place] [address] Care Team Providers Care Visual Developer Name Role Phone Lita Oseguera Unavailable Unavailable Marija Edgar APRN BROADBAND ENGINEER Primary Care Provider + Marija Edgar APRN BROADBAND ENGINEER Unavailable [phone] Keisha Dotson MD Unavailable Diana Desir [facility] Unavailable Rain Galaviz PA-C Unavailable Tavia Wyatt MD Unavailable Erica Farrell APRN BROADBAND ENGINEER Unavailable Tavia Wyatt MD Unavailable [phone] Rich Barrett MD Unavailable [phone] Neil Kent MD Unavailable Roney Story DPM Unavailable [phone] Diana Desir [facility] Unavailable [phone] Jelena David OD Unavailable Galo Burrell MD Unavailable Unavailable Livan Sharif MD Unavailable Livan Sharif MD Unavailable IsCatherine hobbs MD Unavailable + Valery Veronica PA-C Unavailable Catherine Cm MD Unavailable + Johnny Murillo MD Unavailable Brea Quinn HUMAN RESOURCES COMPENSATION ANALYST BROADBAND ENGINEER Unavailable [phone] Brea Quinn HUMAN RESOURCES COMPENSATION ANALYST BROADBAND ENGINEER Unavailable [phone] Jose Francisco Johnson MD Unavailable Livan Sharif MD Unavailable Catherine Cm MD Unavailable + Sydnie Martinez RN Unavailable Unavailable Alfonso Renteria MD Unavailable [phone] Esha Grimm PA-C Primary Care Provider Cheng Todd PA-C Unavailable Radha Lomeli HUMAN RESOURCES COMPENSATION ANALYST BROADBAND ENGINEER Unavailable Jelena David OD Unavailable Pao Joseph RN Unavailable Unavailable Esha Grimm PA-C Unavailable [phone] Valery Veronica PA-C Unavailable Rey Tay MD Unavailable Rocky Zepeda DO Unavailable Philip Dumont MD Unavailable Meredith Carrera PA-C Unavailable Neil Kent MD Unavailable Juan Pablo Emmanuel MD Unavailable Audrey Waite PA-C Unavailable Valery Veronica PA-C Unavailable Herminia Hatch MD Unavailable Jelena David OD Unavailable Juan Pablo Emmanuel MD Unavailable [phone] Maru Man PA-C Unavailable [phone] Maru Man PA-C Unavailable [phone] Jelena David OD Unavailable Fabiano Correa NP Unavailable [phone] Walter Nowak MD Unavailable Liset Márquez MD Unavailable Lauren Coronado [facility] Unavailable [phone] Encounter Details Date Type Department Care Team (Late st Contact Info) Description 05/01/2022 [facility] [address] [address] Diana Desir, [facility] [address] [place] [address] Social History Tobacco Use Types Packs/Day Years [...] How often do you attend rastafarian or restorationist serv ices? Never 09/22/2021 Do [...] in a retirement (including now)? No 09/22/2021 Egan Depression Scale Answer Date Recorded Egan Depression Score 5 01/14/2021 Last EPDS Self Harm Result Not on file 01/14 Education Answer Date Recorded What is the highest level of school you have completed or the highest degree you have received? 12th grade 08/07/2020 Comments No Sex and Gender Information Value Date Recorded Sex Assigned at Female 03/02/2021 5:45 PM CDT Legal Sex Female 4:13 AM HELPDESK ADMINISTRATOR Gender Identity Female 03/02/2021 5:45 PM [...] Description 04/30/2025 10:30 AM CDT Office Visit [facility] [address], [address] [place] [address] Liset Márquez MD [address] [place] [address] 05/30/2025 2:45 PM HELPDESK ADMINISTRATOR Office Visit [facility] 6[address] [facility] [address] [place] [phone] Fabiano Correa NP [address] [place] [phone] Walter Nowak MD [address] [place] [phone] 08/07/2025 8:15 AM HELPDESK ADMINISTRATOR Office Visit [facility] 6405 [facility] [address] [place] [phone] Lucien Grimes MD [address] [place] [phone] [place] 556015 08/21/2025 9:00 AM HELPDESK ADMINISTRATOR Office Visit [facility] [address] [phone] Neil Kent MD [address] [place] [address] [phone] 10/09/2025 10:45 AM CDT Virtual Visit [facility] [address] [place] [address] 4th [place] [phone] Meredith Carrera PA-C [address] [place] [address] 320015 documented as of this encounter Visit Diagnoses Not on filedocumented in this encounter Additional Health Concerns Infection Onset Date Last Indicated Resolved Time Rule Out COVID-19 05/17/2022 05/17/2022 05/17/2022 10:20 PM HELPDESK ADMINISTRATOR Rule Out COVID-19 06/09/2022 06/09/2022 06/09/2022 9:35 AM HELPDESK ADMINISTRATOR COVID-19 06/09/2022 06/09/2022 06/30/2022 11:4 1 PM HELPDESK ADMINISTRATOR Rule Out COVID-19 11/10/2022 11/10/2022 11/11/2022 [...] Start Date End Date Marija Edgar APRN BROADBAND ENGINEER PCP - General Nurse Practitioner 04/30/20 04/14/23 Esha Grimm PA-C [address] [place] [phone] PCP - General Family Medicine 05/04/23 Lita Oseguera Personal Advocate & Liaison (PAL) 02/28/20 03/27/23 Marija Edgar APRN BROADBAND ENGINEER Assigned PCP 06/08/20 04/29/23 Keisha Dotson MD [address] [place] [address] [place] [address] Assigned Neuroscience Provider 06/04/20 04/01/23 Diana Desir, [facility] [address] [place] [address] Pharmacist Pharmacist 04/17/21 Rain Galaviz PA-C [address] [place] [address] [address] [place] [address] Physician Towboat Engineer Dermatology 04/28/21 Tavia Wyatt MD [address] [place] [address] [address] [place] [place] [address] Dermatology 07/14/21 Erica Farrell APRN BROADBAND ENGINEER 6405 [facility] [address] [place], [place] 750645 Nurse Practitioner Cardiovascular Disease 09/09/21 Tavia Wyatt MD 101 [place] [address] Assigned Surgical Provider 11/29/21 05/07/22 Rich Barrett MD 101 [place] [address] Physician Ophthalmology 01/21/22 Neil Kent MD 500 [place] [address] Dermatology 02/24/22 Roney Story DPM [address] [address] Assigned Musculoskeletal Provider 03/20/22 08/13/22 Diana Desir, [facility] [address] [place] [address] Assigned MTM Pharmacist 04/07/22 Jelena David OD [address] [facility] [place] [address] Assigned Surgical Provider 05/08/22 10/08/22 Galo Burrell MD Assigned Heart and Vascular Provider 04/17/22 06/11/22 Livan Sharif MD [address] [place] [address] [place] [address] Cardiovascular Disease 05/14/22 Livan Sharif MD [address] [place] [address] [place] 727895 Assigned Heart and Vascular Provider 06/12/22 07/23/22 Catherine Cm MD [address] [place] [address] [place] [address] Cardiovascular Disease 07/21/22 Valery Veronica PAUcheC 909 [place], [place] 413705 Physician Towboat Engineer Dermatology 07/21/22 Catherine Cm MD [address] [place] [address] [place] 253405 Assigned Heart and Vascular Provider 07/24/22 11/05/22 Johnny Murillo MD [address] [facility] [address] [place] [address] Assigned Musculoskeletal Provider 08/14/22 10/08/22 Brea Quinn APRN BROADBAND ENGINEER 500 [place], [place] 882395 Nurse Practitioner Dermatology 09/21/22 Brea Quinn APRN BROADBAND ENGINEER 6401 [facility] [place] 390262 Assigned Surgical Provider 10/09/22 05/01/24 [place] [address] [address] Assigned Musculoskeletal Provider 10/09/22 05/01/24 Livan Sharif MD 6405 [facility] [address]200 [place] [address] Assigned Heart and Vascular Provider 11/06/22 11/12/22 Catherine Cm MD 6405 [facility] [address] [place] [address] Assigned Heart and Vascular Provider 11/13/22 05/27/23 Sydnie Martinez RN Personal Advocate & Liaison (PAL) Family Medicine 03/28/23 07/31/23 Alfonso Renteria MD 5775 [facility] 200 [place], [place] 936366 Assigned Neuroscience Provider 04/02/23 09/29/24 Cheng Todd PA-C [address] [place] [address] [phone] Assigned PCP 04/30/23 07/15/23 Radha Lomeli APRN BROADBAND ENGINEER 6405 [facility] [address] [place] [address] Assigned Heart and Vascular Provider 05/28/23 11/29/24 Jelena David OD [address] [facility] [address] [place] [phone] MD Ophthalmology 06/15/23 Pao Joseph, VJ Personal Advocate & Liaison (PAL) Nurse 08/01/23 11/07/23 Esha Grimm PA-C [address] [place] [address]465[address] Assigned PCP 07/16/23 Valery Veronica PA-C [address] [place] [address] 320075 Physician Towboat Engineer Dermatology 09/19/23 Rey Tay MD [address] [place] [address] 498065 Gastroenterology 09/20/23 Rocky Zepeda DO [address] [place] [address] 662795 Physician Gastroenterology 09/20/23 Philip Dumont MD [address] [place] [address] 121645 Physician Ophthalmology 09/22/23 Meredith Carrera PA-C 909 [place], [place] 721735 Assigned Gastroenterology Provider 11/01/23 Neil Kent MD [address] [address] MD Dermatology 11/02/23 [place] [address] [place], [place] 970557 Neurological Surgery 12/26/23 Audrey Waite PA-C 500 [place], [place] 294035 Physician Towboat Engineer Dermatology 02/28/24 Valery Veronica PA-C 059516 [place], [place] [address]29 Physician Towboat Engineer Dermatology 04/10/24 Herminia Hatch MD [facility]5 [place], [place] 07743125 Assigned Rheumatology Provider 07/02/24 Jelena David OD [address] [facility] [place] [address] Ophthalmology 08/30/24 [place] [address] [place] [address] Assigned Neuroscience Provider 09/30/24 Maru Man PA-C [address] [place] [address] Physician Towboat Engineer Dermatology 10/03/24 Maru Man PA-C [address] [place] [address] Physician Towboat Engineer Dermatology 10/22/24 Jelena David OD [address] [facility] [place] [address] Assigned Surgical Provider 10/31/24 Fabiano Correa NP [address] [place] [address] Assigned Heart and Vascular Provider 11/30/24 Walter Nowak MD [address] [place] [address] Physician Clinical Cardiac Electrophysiology 03/01/25 Liset Márquez MD [address] [facility] 300 [place] [address] home care giver 03/13/25 Lauren Coronado, [facility] [address] [place] [address] Pharmacist Pharmacist 04/15/25 documented as of this encounter
--- OUTSIDE RECORDS SUMMARY | 2025-04-26 23:53 | XMS_ITS | Encounter Summary ---
Author Organization [facility] Address [address] [place] [address] Care Team Providers Care Outsole Paraffiner Name Role Phone Lita Oseguera Unavailable Unavailable Marija Edgar APRN PLODDING OPERATOR Primary Care Provider + Chanelle Mccann BEAD MAKER CNM Unavailab le Kyara De La Fuente RN Unavailable [phone] Marija Edgar APRN PLODDING OPERATOR Unavailable Mynor Broussard MD Unavailable [phone] Keisha Dotson MD Unavailable Stacey Briones VAT WASHER Unavailable [phone] Galo Burrell MD Unavailable Unavailable Lesley Guillermo CHW Unavailable Meredith Bedoya Unavailable Unavailable Cristina Wood Unavailable Diana Desir [facility] Unavailable [phone] Rain Galaviz PA-C Unavailable Summer Lara MD Unavailable Summer Lara MD Unavailable [phone] Summer Lara MD Unavailable [phone] Tavia Wyatt MD Unavailable [phone] Johnny Murillo MD Unavailable [phone] Erica Farrell BEAD MAKER PLODDING OPERATOR Unavailable Vikas Teresitakaren Watson [facility] Unavailable Tavia Wyatt MD Unavailable [phone] Diana Desir [facility] Unavailable Rich Barrett MD Unavailable Neil Kent MD Unavailable Roney Story DPM Unavailable Erica Farrell BEAD MAKER PLODDING OPERATOR Unavailable Diana Desir [facility] Unavailable Jelena David Unavailable Galo Burrell MD Unavailable Unavailable Livan Sharif MD Unavailable + Livan Sharif MD Unavailable + Catherine mC MD Unavailable + Valery Veronica PA-C Unavailable [phone] Catherine Cm MD Unavailable + Johnny Murillo MD Unavailable [phone] Brea Quinn BEAD MAKER PLODDING OPERATOR Unavailable [phone] Brea Quinn BEAD MAKER PLODDING OPERATOR Unavailable Jose Francisco Johnson MD Unavailable Livan Sharif MD Unavailable Catherine Cm MD Unavailable + Sydnie Martinez RN Unavailable Unavailable Alfonso Renteria MD Unavailable [phone] Alfa, Esha M PA-C Primary Care Provider PerezCheng Abe PA-C Unavailable ArmaniRadha ARLENE PLODDING OPERATOR Unavailable Jelena David OD Unavailable Pao Joseph RN Unavailable Unavailable Alfa Esha Medina PA-C Unavailable [phone] Valery Veronica PA-C Unavailable Rey Tay [...] Lauren Coronado [facility] Unavailable Encounter Details Date Type Department Care Team (Late st Contact Info) Description 10/24/2020 MyC Medical Advice [address] [address] Marija Edgar APRN [facility] [address] [place] [address] Social History Tobacco Use Types Packs/Day [...] 3 09/29/2020 [facility] [...] CDT Legal Sex Female 4:13 AM SUPERVISOR BURLING AND JOINING Gender Identity Female 03/02/2021 5:45 PM CDT [...] 11:44 AM CDT Replied to patient via [employer]. Anthony Doe PA-C on 10/27/2020 at 11:54 AM documented in this encounter Plan of Treatment Upcoming Encounters Date Type Department Care Team (Late st Contact Info) Description 04/30/2025 10:30 AM CDT Office Visit [facility] [address], [address] [place] [phone] Liset Márquez MD [address] [place] [address] 05/30/2025 2:45 PM SUPERVISOR BURLING AND JOINING Office Visit [facility] Heart [facility] 6405 [facility] [address] [place] [phone] Fabiano Correa NP 6401 [facility] [place] 303865 Walter Nowak MD 3132 [facility] [place] 488[address] 08/07/2025 8:15 AM SUPERVISOR BURLING AND JOINING Office Visit [facility] Heart [facility] 6405 [facility] [address] [place] [phone] Lucien Grimes MD [address] [place] [address] 08/21/2025 9:00 AM SUPERVISOR BURLING AND JOINING Office Visit [facility] [address] [phone] Neil Kent MD [address] [place] [address] 779975 10/09/2025 10:45 AM CDT Virtual Visit [facility] [place] [address] [place] [address] 4th [place] [phone] Meredith Carrera PA-C [address] [place] [address] documented as of this encounter Visit Diagnoses Not on filedocumented in this encounter Additional Health Concerns Infection Onset Date Last Indicated Resolved Time Rule Out COVID-19 11/05/2020 11/05/2020 11/06/2020 1:09 PM CDT Rule Out COVID-19 05/11/2021 05/11/2021 05/13/2021 10:18 AM CDT Rule Out COVID-19 07/13/2021 07/13/2021 07/14/2021 3:04 PM SUPERVISOR BURLING AND JOINING Rule Out COVID-19 07/18/2021 07/18/2021 07/20/2021 1:56 PM SUPERVISOR BURLING AND JOINING COVID-19 07/18/2021 07/18/2021 08/08/2021 11:3 9 PM SUPERVISOR BURLING AND JOINING Rule Out COVID-19 12/18/2021 12/18/2021 12/19/2021 11:34 AM CDT Rule Out COVID-19 02/24/2022 02/24/2022 02/25/2022 1:08 PM CDT Rule Out COVID-19 04/26/2022 04/26/2022 04/26/2022 6:47 AM CDT Rule Out COVID-19 05/17/2022 05/17/2022 05/17/2022 10:20 PM SUPERVISOR BURLING AND JOINING Rule Out COVID-19 06/09/2022 06/09/2022 06/09/2022 9:35 AM SUPERVISOR BURLING AND JOINING COVID-19 06/09/2022 06/09/2022 06/30/2022 11:4 1 PM SUPERVISOR BURLING AND JOINING Rule Out COVID-19 11/10/2022 11/10/2022 11/11/2022 12:17 [...] documented as of this encounter Care Teams Outsole Paraffiner Relationship Specialty Start Date End Date Marija Edgar APRN PLODDING OPERATOR PCP - General Nurse Practitioner 04/30/20 04/14/23 Esha Grimm PA-C [address] [place] [address] PCP - General Family Medicine 05/04/23 Lita Oseguera Personal Advocate & Liaison (PAL) 02/28/20 03/27/23 Chanelle Mccann APRN [facility] [address], [address] [place] [address] Assigned OBGYN Provider 05/02/2005/09 Kyara De La Fuente, RN Specialty Washer Hand Neurology 06/04/20 03/05/21 Marija Edgar APRN PLODDING OPERATOR Assigned PCP 06/08/20 04/29/23 Mynor Broussard MD 9 [place], [place] [phone] Assigned Surgical Provider 06/01/20 11/28/21 Keisha Dotson MD 909 [place] [address] Assigned Neuroscience Provider 06/04/20 04/01/23 Stacey Briones, [facility] Lead Washer Hand Primary Care - CC 08/11/20 12/30/20 Galo Burrell MD Assigned Heart and Vascular Provider 10/05/20 04/02/22 Lesley Guillermo, [facility] Community Health Worker 10/23/20 12/30/20 Meredith Bedoya Financial Resource Worker 10/23/20 11/23/20 Cristina Wood Financial Resource Worker 02/09/21 02/09/21 Diana Desir, [facility] 3033 [place] [address] Pharmacist Pharmacist 04/17/21 Rain Galaviz PA-C [address] [place] [address] DR [address] [facility] [place] [address] Physician Coil Shaper Dermatology 04/28/21 Summer Lara MD [address] [place] [address] Assigned OBGYN Provider 05/10/2105/23 Summer Lara MD [address] [place] [address] 217734 Assigned OBGYN Provider 05/31/21 2 Summer Lara MD [address] [place] [address] 665214 Assigned OBGYN Provider 05/24/2105/30 Tavia Wyatt MD [address] [place] [address] 753174 Dermatology 07/14/21 Johnny Murillo MD [facility] [facility] [address] [place] [address] Assigned Musculoskeletal Provider 08/30/21 03/17/22 Erica Farrell APRN PLODDING OPERATOR 6405 [facility] [address] [place] [address] Nurse Practitioner Cardiovascular Disease 09/09/21 Teresita Bean, [facility] [address] [place] [address] Pharmacist Pharmacist 09/24/21 09/29/21 Tavia Wyatt MD [address] [place] [address] Assigned Surgical Provider 11/29/21 05/07/22 Diana Desir, [facility] [address] [place] [address] Assigned MTM Pharmacist 01/02/22 Rich Barrett MD [address] [place] [address] 859726 Physician Ophthalmology 01/21/22 Neil Kent MD [address] [place] [address] Dermatology 02/24/22 Roney Story DPM [address] [address] Assigned Musculoskeletal Provider 03/20/22 08/13/22 Erica Farrell APRN PLODDING OPERATOR [facility] [place] [address] Assigned Heart and Vascular Provider 04/03/22 04/16/22 Diana Desir, [facility] [address] [place] [address] Assigned MTM Pharmacist 04/07/22 Jelena David OD [address] [place] [address] [place] [address] Assigned Surgical Provider 05/08/22 10/08/22 Galo Burrell MD Assigned Heart and Vascular Provider 04/17/22 06/11/22 Livan Sharif MD [address] [place] 685075 Cardiovascular Disease 05/14/22 Livan Sharif MD [address] [place] 907075 Assigned Heart and Vascular Provider 06/12/22 07/23/22 Catherine Cm MD [address] [place] 355855 Cardiovascular Disease 07/21/22 Valery Veronica, PA-C [address] [place] [address] 452245 Physician Coil Shaper Dermatology 07/21/22 Catherine Cm MD [address] [place] 367035 Assigned Heart and Vascular Provider 07/24/22 11/05/22 Johnny Murillo MD [address] 742354 Assigned Musculoskeletal Provider 08/14/22 10/08/22 Brea Quinn APRN PLODDING OPERATOR [address] [place] [address] 010365 Nurse Practitioner Dermatology 09/21/22 Brea Quinn APRN PLODDING OPERATOR 6401 [facility] [place] [address] Assigned Surgical Provider 10/09/22 05/01/24 [place] [address] [address] Assigned Musculoskeletal Provider 10/09/22 05/01/24 Livan Sharif MD [address] [place] [address] [place] [address] Assigned Heart and Vascular Provider 11/06/22 11/12/22 Catherine Cm MD [address] [place] [address] [place] [address] Assigned Heart and Vascular Provider 11/13/22 05/27/23 Sydnie Martinez RN Personal Advocate & Liaison (PAL) Family Medicine 03/28/23 07/31/23 Alfonso Renteria MD 5775 [facility] 200 [place] [address] Assigned Neuroscience Provider 04/02/23 09/29/24 Cheng Todd PA-C [address] [place] [address] Assigned PCP 04/30/23 07/15/23 Radha Lomeli APRN PLODDING OPERATOR [address] [place] 6498600 [place] [address] Assigned Heart and Vascular Provider 05/28/23 11/29/24 Jelena David OD [address] [place] [address] MD Ophthalmology 06/15/23 Pao Joseph, RN Personal Advocate & Liaison (PAL) Nurse 08/01/23 11/07/23 Esha Grimm PA-C [address] [place] [address] Assigned PCP 07/16/23 Valery Veronica PA-C [address] [place] [address] 332585 Physician Coil Shaper Dermatology 09/19/23 Rey Tay MD [address] [place] [address] MD Gastroenterology 09/20/23 Rocky Zepeda DO [address] [place] [address] 974935 Physician Gastroenterology 09/20/23 Philip Dumont MD [address] [place] [address] 484575 Physician Ophthalmology 09/22/23 Meredith Carrera PA-C [address] [place] [address] 327485 Assigned Gastroenterology Provider 11/01/23 Neil [place] MD [address] 042340 Dermatology 11/02/23 [place] [address] [place] [address] Neurological Surgery 12/26/23 Audrey Waite PA-C 500 [place] [address] Physician Coil Shaper Dermatology 02/28/24 Valery Veronica PA-C [address] [place] [address] Physician Coil Shaper Dermatology 04/10/24 Herminia Hatch MD [address] [place] [address] [phone] Assigned Rheumatology Provider 07/02/24 Jelena David, SONJA [address] [place] [address] [place] [address] Ophthalmology 08/30/24 [place] [address] [place] [address] Assigned Neuroscience Provider 09/30/24 Maru Man PA-C [address] [place] [address] Physician Coil Shaper Dermatology 10/03/24 Maru Man PA-C [address] [place] [address] Physician Coil Shaper Dermatology 10/22/24 Jelena David, SONJA [address] [place] [address] Assigned Surgical Provider 10/31/24 Fabiano Correa NP 6405 [facility] [place] [address] Assigned Heart and Vascular Provider 11/30/24 Walter Nowak MD [address] [place] [address] Physician Clinical Cardiac Electrophysiology 03/01/25 Liset Márquez MD 606 [facility] [address] [address] multiple sclerosis nurse 03/13/25 Lauren Coronado, [facility] 9 [place], [place] 076675 Pharmacist Pharmacist 04/15/25 documented as of this encounter
--- OUTSIDE RECORDS SUMMARY | 2025-04-26 23:53 | XMS_ITS | Encounter Summary ---
Author Organization [facility] Address [address] [place] [address] Care Team Providers Care Production Stage Manager Name Role Phone Lita Oseguera Unavailable Unavailable Marija Edgar APRN TOBACCO PACKER Primary Care Provider + Chanelle Mccann APRN CNM Unavailab le Kyara De La Fuente RN Unavailable [phone] Marija Edgar APRN TOBACCO PACKER Unavailable Mynor Broussard MD Unavailable [phone] Keisha Dotson MD Unavailable Stacey Briones GEOTHERMAL OPERATIONS MANAGER Unavailable [phone] Lesley Guillermo CH Unavailable Mary Mejia Unavailable Unavailable Lita Oseguera Unavailable Unavailable Galo Burrell MD Unavailable Unavailable Cristina Wood Unavailable Lesley Guillermo CHW Unavailable Meredith Bedoya Unavailable Unavailable Cristina Wood Unavailable Diana Desir [facility] Unavailable Rain GalavizC Unavailable Summer Lara MD Unavailable [phone] Summer Lara MD Unavailable [phone] Summer Lara MD Unavailable [phone] Tavia Wyatt MD Unavailable [phone] Johnny Murillo MD Unavailable +[phone]- Erica Farrell APRN TOBACCO PACKER Unavailable Vikas Teresitafazal Watson H Unavailable Tavia Wyatt MD Unavailable [phone] Diana Desir [facility] Unavailable [phone] Rich Barrett MD Unavailable Neil Kent MD Unavailable Roney StoryM Unavailable [phone] Erica Farrell APRN TOBACCO PACKER Unavailable Diana Desir [facility] Unavailable [phone] Jelena David OD Unavailable Galo Burrell MD Unavailable Unavailable Livan Sharif MD Unavailable + Livan Sharif MD Unavailable + Catherine Cm MD Unavailable + Valery Veronica PA-C Unavailable [phone] Catherine Cm MD Unavailable + Johnny Murillo MD Unavailable +1- Brea Quinn APRN TOBACCO PACKER Unavailable [phone] Brea Quinn APRN TOBACCO PACKER Unavailable [phone] Jose Francisco Johnson MD Unavailable Livan Sharif MD Unavailable + Catherine Cm MD Unavailable + Sydnie Martinez RN Unavailable Unavailable Alfonso Renteria MD Unavailable [phone] Esha Grimm PA-C Primary Care Provider Perez Chengjc Fish PA-C Unavailable Armani Radha Stovall ARLENE GRANADOS Unavailable Jelena David OD Unavailable Pao Joseph RN Unavailable Unavailable Esha Grimm PA-C Unavailable [phone] Valery Veronica PA-C Unavailable Rey Tay [...] Unavailable Liset Márquez MD Unavailable Lauren Coronado [facility] Unavailable [phone] Reason for Visit * Reason Onset Date Comments Patient/info Update 08/31/2020 appointment request Encounter Details Date Type Department Care Team (Late st Contact Info) Description 08/31/2020 MyC Medical Advice [address] [address] Marija Edgar APRN [facility] [address] [place] [address] Patient/info Update (appointment request ) [...] do you attend chur or restoration services? More than 4 times [...] Answer Date Recorded PHQ-2 Score 0 08/12/2020 [facility] [...] CDT Legal Sex Female 4:13 AM DIRECTOR PRESALES Gender Identity Female 03/02/2021 5:45 PM CDT Sexual Orientation Straight 02/28/2020 12 :51 AM CDT COVID-19 Exposure Response Date Recorded In the last month, have you been in contact with someone who was confirmed or suspected to have Coronavirus / COVID-19? No / Unsure 09/03/2020 12:11 PM DIRECTOR PRESALES documented as of this encounter Miscellaneous Notes * Telephone Encounter - Maryjane Mccallum RN - 09/01/2020 7:21 AM DIRECTOR PRESALES Patient sent message requesting office visit with [...] Office Visit with Marija Edgar APRN CNP [facility] ([facility] ) [address] [facility] [address] Maryjane Mccallum Registered Nurse [facility] CTOR PRESALES documented in this encounter Plan of Treatment Upcoming Encounters Date Type Department Care Team (Late st Contact Info) Description 04/30/2025 10:30 AM CDT Office Visit [facility] [place] [address], [address] [place] [phone] Liset Márquez MD [address] [place] [address] 05/30/2025 2:45 PM DIRECTOR PRESALES Office Visit [facility] [address] [phone] Fabiano Correa NP [address]405 [place], [place] 12[address] Walter Nowak MD [address]38 [place], [place] [address] 08/07/2025 8:15 AM DIRECTOR PRESALES Office Visit [facility] [address] [phone] Lucien Grimes MD [address] [phone] 08/21/2025 9:00 AM DIRECTOR PRESALES Office Visit [facility] [address] [phone] Neil Kent MD [address] [place] [address] [phone] 10/09/2025 10:45 AM CDT Virtual Visit [facility] [address] [facility] 4th [place] [address] Meredith Carrera PAUcheC [address] [place] [address] documented as of this encounter Visit Diagnoses Not on filedocumented in this encounter Additional Health Concerns Infection Onset Date Last Indicated Resolved Time Rule Out COVID-19 09/24/2020 09/24/2020 09/24/2020 9:24 AM CDT Rule Out COVID-19 11/05/2020 11/05/2020 11/06/2020 1:09 PM CDT Rule Out COVID-19 05/11/2021 05/11/2021 05/13/2021 10:18 AM CDT Rule Out COVID-19 07/13/2021 07/13/2021 07/14/2021 3:04 PM DIRECTOR PRESALES Rule Out COVID-19 07/18/2021 07/18/2021 07/20/2021 1:56 PM DIRECTOR PRESALES COVID-19 07/18/2021 07/18/2021 08/08/2021 11:3 9 PM DIRECTOR PRESALES Rule Out COVID-19 12/18/2021 12/18/2021 12/19/2021 11:34 AM CDT Rule Out COVID-19 02/24/2022 02/24/2022 02/25/2022 1:08 PM CDT Rule Out COVID-19 04/26/2022 04/26/2022 04/26/2022 6:47 AM CDT Rule Out COVID-19 05/17/2022 05/17/2022 05/17/2022 10:20 PM DIRECTOR PRESALES Rule Out COVID-19 06/09/2022 06/09/2022 06/09/2022 9:35 AM DIRECTOR PRESALES COVID-19 06/09/2022 06/09/2022 06/30/2022 11:4 1 PM DIRECTOR PRESALES Rule Out COVID-19 11/10/2022 11/10/2022 11/11/2022 12:17 [...] Depression Total Score: 9 06/25/20 7:04 AM DIRECTOR PRESALES documented as of this encounter Care Teams Production Stage Manager Relationship Specialty Start Date End Date Marija Edgar APRN TOBACCO PACKER PCP - General Nurse Practitioner 04/30/20 04/14/23 Esha Grimm PA-C [address] [place] [phone] PCP - General Family Medicine 05/04/23 Ltia Oseguera Personal Advocate & Liaison (PAL) 02/28/20 03/27/23 Chanelle Mccann APRN CNM [address] 394[address] Assigned OBGYN Provider 05/02/2005/09 Kyara De La Fuente, VJ Specialty Incising Machine Operator Neurology 06/04/20 03/05/21 Marija Edgar APRN TOBACCO PACKER Assigned PCP 06/08/20 04/29/23 Mynor Broussard MD [address] [place], [place] [phone] Assigned Surgical Provider 06/01/20 11/28/21 Keisha Dotson MD [address] [place] [address] Assigned Neuroscience Provider 06/04/20 04/01/23 Stacey Briones, [facility] Lead Incising Machine Operator Primary Care - CC 08/11/20 12/30/20 Lesley Guillermo, [facility] Community Health Worker 08/11/20 10/01/20 Mary Mejia Financial Resource Worker 09/02/20 10/06/20 Lita Oseguera Personal Advocate & Liaison (PAL) Family Medicine 09/10/20 09/21/20 Galo Burrell MD Assigned Heart and Vascular Provider 10/05/20 04/02/22 Cristina Wood Financial Resource Worker 10/07/20 10/14/20 Lesley Guillermo, [facility] Community Health Worker 10/23/20 12/30/20 Meredith Bedoya Financial Resource Worker 10/23/20 11/23/20 Cristina Wood Financial Resource Worker 02/09/21 02/09/21 Diana Desir, [facility] [address] [place] [address] Pharmacist Pharmacist 04/17/21 Rain Galaviz PA-C [address] [place] [address] [address] [facility] [place] [address] Physician Beehive Kiln Supervisor Dermatology 04/28/21 Summer Lara MD [address] [place], [place] [address] Assigned OBGYN Provider 05/10/2105/23 Summer Lara MD [address] [place] [address] Assigned OBGYN Provider 05/31/21 2 Summer Lara MD [address] [place] [address] Assigned OBGYN Provider 05/24/2105/30 Tavia Wyatt MD [address] [place], [place] [address] Dermatology 07/14/21 Johnny Murillo MD [address] [place] [address] Assigned Musculoskeletal Provider 08/30/21 03/17/22 Erica Farrell APRN TOBACCO PACKER [address] [facility] [address] [place] [address] Nurse Practitioner Cardiovascular Disease 09/09/21 Teresita Bean [facility] [address] [place] [place] [phone] Pharmacist Pharmacist 09/24/21 09/29/21 Tavia Wyatt MD [address] [place], [place] [address] Assigned Surgical Provider 11/29/21 05/07/22 Diana Desir, [facility] [address] [place] [address] Assigned MTM Pharmacist 01/02/22 Rich Barrett MD [address] [place], [place] [phone] Physician Ophthalmology 01/21/22 Neil Kent MD [address] [place], [place] 433345 Dermatology 02/24/22 Roney Story DPM [address] [facility] [address] [place], [place] [phone] Assigned Musculoskeletal Provider 03/20/22 08/13/22 Erica Farrell APRN TOBACCO PACKER [address] [place] [address] Assigned Heart and Vascular Provider 04/03/22 04/16/22 Diana Desir, [facility] [address] [place] [address] Assigned MTM Pharmacist 04/07/22 [place] [address] [place] [address] [place] [address] Assigned Surgical Provider 05/08/22 10/08/22 Galo Burrell MD Assigned Heart and Vascular Provider 04/17/22 06/11/22 Livan Sharif MD [address] [place] [address] Cardiovascular Disease 05/14/22 Livan Sharif MD [address]405 [facility] [address] [place] [address] Assigned Heart and Vascular Provider 06/12/22 07/23/22 Catherine Cm MD [address] [place] 406[address] [place] [address] Cardiovascular Disease 07/21/22 Valery Veronica, PA-C [address] [place], [place] 3[address] Physician Beehive Kiln Supervisor Dermatology 07/21/22 Catherine Cm MD [address] [place] [address]1900 [place] [address] Assigned Heart and Vascular Provider 07/24/22 11/05/22 Johnny Murillo MD [address] [place] [address] 604154 Assigned Musculoskeletal Provider 08/14/22 10/08/22 Brea Quinn APRN TOBACCO PACKER [address] [place] [address] 967365 Nurse Practitioner Dermatology 09/21/22 Brea Quinn APRN TOBACCO PACKER [address] [place] [address] [place] 379102 Assigned Surgical Provider 10/09/22 05/01/24 [place] [address] [place] [address] Assigned Musculoskeletal Provider 10/09/22 05/01/24 Livan Sharif MD [address] [place], [place] 9[address] Assigned Heart and Vascular Provider 11/06/22 11/12/22 Catherine Cm MD [address] [place] [address] Assigned Heart and Vascular Provider 11/13/22 05/27/23 Sydnie Martinez RN Personal Advocate & Liaison (PAL) Family Medicine 03/28/23 07/31/23 Alfonso Renteria MD [address] [facility] [address] [place] [address] Assigned Neuroscience Provider 04/02/23 09/29/24 Cheng oTdd PA-C [address] [place] [address] [phone] Assigned PCP 04/30/23 07/15/23 Radha Lomeli, ARLENE TOBACCO PACKER [address] [place] [address] Assigned Heart and Vascular Provider 05/28/23 11/29/24 [place] [address] [facility] [place] [address] Ophthalmology 06/15/23 Pao Joseph, VJ Personal Advocate & Liaison (PAL) Nurse 08/01/23 11/07/23 Esha Grimm PAUcheC [address] [place] [phone] Assigned PCP 07/16/23 Valery Veronica PA-C [address] [place], [place] [address] Physician Beehive Kiln Supervisor Dermatology 09/19/23 Rey Tay MD [address] [place] [address] MD Gastroenterology 09/20/23 Rocky Zepeda DO [address] [place] [address] [phone] Physician Gastroenterology 09/20/23 Philip Dumont MD [address] [place] [address] [phone] Physician Ophthalmology 09/22/23 Meredith Carrera PA-C [address] [place] [address] [phone] Assigned Gastroenterology Provider 11/01/23 Neil Kent MD [address] [place] [address] Dermatology 11/02/23 [place] [address] [place] [address] Neurological Surgery 12/26/23 Audrey Waite PA-C [address] [place] [address] Physician Beehive Kiln Supervisor Dermatology 02/28/24 Valery Veronica PA-C [id number] [place] [address] [place] [address] Physician Beehive Kiln Supervisor Dermatology 04/10/24 Herminia Hatch MD [address] [place] [address] Assigned Rheumatology Provider 07/02/24 Jelena David OD [address] [place] [address] [place] [address] Ophthalmology 08/30/24 [place] [address] [place] [address] Assigned Neuroscience Provider 09/30/24 Maru Man PA-C [address] [place] [address] Physician Beehive Kiln Supervisor Dermatology 10/03/24 Maru Man PA-C [address] [place] [address] Physician Beehive Kiln Supervisor Dermatology 10/22/24 Jelena David OD [address] [place] [address] [place] [address] Assigned Surgical Provider 10/31/24 Fabiano Correa NP [address] [place] [phone] Assigned Heart and Vascular Provider 11/30/24 Walter Nowak MD [address] [place] 678955 Physician Clinical Cardiac Electrophysiology 03/01/25 Liset Márquez MD [address] [place] [address] lead coater 03/13/25 Lauren Coronado, [facility] [address] [place] [address] Pharmacist Pharmacist 04/15/25 documented as of this encounter
--- OUTSIDE RECORDS SUMMARY | 2025-04-26 23:53 | XMS_ITS | Encounter Summary ---
Author Organization [facility] Address [address] [place] [address] 18599 Care Team Providers Care Substation Operator Automatic Name Role Phone Lita Oseguera Unavailable Unavailable Marija Edgar APRN IRRIGATOR HEAD Primary Care Provider + Marija Edgar APRN IRRIGATOR HEAD Unavailable Keisha Dotson MD Unavailable [phone] Galo Burrell MD Unavailable Unavailable Diana Desir [facility] Unavailable Rain Galaviz PA-C Unavailable Summer Lara MD Unavailable [phone] Tavia Wyatt MD Unavailable Johnny Murillo MD Unavailable Erica Farrell APRN IRRIGATOR HEAD Unavailable Tavia Wyatt MD Unavailable Diana Desir [facility] Unavailable Rich Barrett MD Unavailable [phone] Neil Kent MD Unavailable Roney Story DPM Unavailable Erica Farrell APRN IRRIGATOR HEAD Unavailable Diana Desir [facility] Unavailable [phone] Jelena David OD Unavailable [phone] Galo Burrell MD Unavailable Unavailable HoLivan MD Unavailable Livan Sharif MD Unavailable IsCatherine hobbs MD Unavailable + Valery Veronica PA-C Unavailable [phone] Catherine Cm MD Unavailable + Johnny Murillo MD Unavailable [phone] Brea Quinn SAFETY ASSISTANT IRRIGATOR HEAD Unavailable [phone] Brea Quinn SAFETY ASSISTANT IRRIGATOR HEAD Unavailable [phone] Jose Francisco Johnson MD Unavailable Livan Sharif MD Unavailable + IsCatherine boothe MD Unavailable + Sydnie Martinez RN Unavailable Unavailable Alfonso Renteria MD Unavailable Esha Grimm PA-C Primary Care Provider Cheng Todd PA-C Unavailable Radha Lomeli SAFETY ASSISTANT IRRIGATOR HEAD Unavailable [phone] Jelena David OD Unavailable Pao Joseph RN Unavailable Unavailable Esha Grimm PA-C Unavailable [phone] Valery Veronica PA-C Unavailable [phone] Rey Tay MD Unavailable Rocky Zepeda DO Unavailable Philip Dumont MD Unavailable [phone] Meredith Carrera PA-C Unavailable Neil Kent MD Unavailable Juan Pablo Emmanuel MD Unavailable [phone] Audrey Watie PA-C Unavailable [phone] Valery Veronica PA-C Unavailable Herminia Hatch MD Unavailable Jelena David OD Unavailable Juan Pablo Emmanuel MD Unavailable [phone] Maru ManC Unavailable [phone] Maru ManC Unavailable [phone] Jelena David OD Unavailable Fabiano Correa NP Unavailable [phone] Walter Nowak MD Unavailable Liset Márquez MD Unavailable Lauren Coronado [facility] Unavailable [phone] Encounter Details Date Type Department Care Team (Late st Contact Info) Description 03/09/2022 MyC Medical Advice [address] [address] Abby Dye Social History Tobacco [...] How often do you attend hoahaoism or roman catholic serv ices? Never 09/22/2021 [...] Answer Date Recorded PHQ-2 Score 2 12/18/2021 [facility] [place] of Occupat ional Health - Occupational Stress [...] No 09/22/2021 Housing Stability Vital Sign Answer Cihp e Recorded In the last 12 months, [...] in a retirement (including now)? No 09/22/2021 [place] Depression Scale Answer Date Recorded [place] Depression Score 5 01/14/2021 Last EPDS Self Harm Result Not on file 01/14 Education Answer Date Recorded What is the highest level of school you have completed or the highest degree you have received? 12th grade 08/07/2020 Comments No Sex and Gender Information Value Date Recorded Sex Assigned at Female 03/02/2021 5:45 PM CDT Legal Sex Female 4:13 AM CONCRETE ROD BUSTER Gender Identity Female 03/02/2021 5:45 PM CDT [...] Description 04/30/2025 10:30 AM CDT Office Visit [facility] [address], [address] [place] [address] Liset Márquez MD [address] [facility] 300 [place] [address] 05/30/2025 2:45 PM CONCRETE ROD BUSTER Office Visit [facility] Heart [facility] [address] [facility] [address] [place] [phone] Fabiano Correa, BRYCE [address]405 [place], [place] [phone] Walter Nowak MD [address] [facility] [place], [place] [address] 08/07/2025 8:15 AM CONCRETE ROD BUSTER Office Visit [facility] Heart [facility] [address] [place] [phone] Lucien Grimes MD [address] [address] [place] 523145 08/21/2025 9:00 AM CONCRETE ROD BUSTER Office Visit [facility] [address] [phone] Neil Kent MD [address] [place] [address] 848285 10/09/2025 10:45 AM CDT Virtual Visit [facility] G[facility] [address] 4th [place] [phone] Meredith Carrera PA-C [address] [place] [address] 602125 documented as of this encounter Visit Diagnoses Not on filedocumented in this encounter Additional Health Concerns Infection Onset Date Last Indicated Resolved Time Rule Out COVID-19 04/26/2022 04/26/202204/2604/26/2022 6:47 AM CDT Rule Out COVID-19 05/17/2022 05/17/2022 05/17/2022 10:20 PM CONCRETE ROD BUSTER Rule Out COVID-19 06/09/2022 06/09/2022 06/09/2022 9:35 AM CONCRETE ROD BUSTER COVID-19 06/09/2022 06/09/2022 06/30/2022 11:4 1 PM CONCRETE ROD BUSTER Rule Out COVID-19 11/10/2022 11/10/2022 11/11/2022 12:17 [...] of this encounter Care Teams Substation Operator Automatic Relationship Specialty Start Date End Date Marija Edgar APRN CNP PCP - General Nurse Practitioner 04/30/20 04/14/23 Esha Grimm PA-C [address] [place] [address] PCP - General Family Medicine 05/04/23 Lita Oseguera Personal Advocate & Liaison (PAL) 02/28/20 03/27/23 Marija Edgar APRN IRRIGATOR HEAD Assigned PCP 06/08/20 04/29/23 Keisha Dotson MD 909 [place] [address] Assigned Neuroscience Provider 06/04/20 04/01/23 Galo Burrell MD Assigned Heart and Vascular Provider 10/05/20 04/02/22 [facility] 3033 [place] [address] Pharmacist Pharmacist 04/17/21 Rain Galaviz PA-C [address] [place] [address] [place] [address] Physician Underwater Photographer Dermatology 04/28/21 Summer Lara MD [address] [place], [place] [address] [place], [place] [address]124 Assigned OBGYN Provider 05/31/21 2 Tavia Wyatt MD [address] [place], [place] [address] [place], [place] 9936[address] Dermatology 07/14/21 Johnny Murillo MD [address] [place] [address] Assigned Musculoskeletal Provider 08/30/21 03/17/22 Erica Farrell APRN IRRIGATOR HEAD [address] [facility] [address] [place] [address] Nurse Practitioner Cardiovascular Disease 09/09/21 Tavia Wyatt MD [address] [place] [address] Assigned Surgical Provider 11/29/21 05/07/22 Diana Desir [facility] [address] [place] [address] Assigned MTM Pharmacist 01/02/22 Rich Barrett MD [address] [place] [address] Physician Ophthalmology 01/21/22 Neil Kent MD 500 [place] [address] Dermatology 02/24/22 Roney Story DPM [address] [facility] [address] [place] [address] Assigned Musculoskeletal Provider 03/20/22 08/13/22 Erica Farrell APRN CNP 1700 [place] [address] Assigned Heart and Vascular Provider 04/03/22 04/16/22 Diana Desir [facility] [address] [place] [address] Assigned MTM Pharmacist 04/07/22 Jelena David OD [address] [facility] [place] [address] Assigned Surgical Provider 05/08/22 10/08/22 Galo Burrell MD Assigned Heart and Vascular Provider 04/17/22 06/11/22 Livan Sharif MD [address] [place] 039905 Cardiovascular Disease 05/14/22 Livan Sharif MD [address] [address] [place] 490325 Assigned Heart and Vascular Provider 06/12/22 07/23/22 Catherine Cm MD [address] [address] [place] 452855 Cardiovascular Disease 07/21/22 Valery Veronica, PA-C [address] [place] [address] 962895 Physician Underwater Photographer Dermatology 07/21/22 Catherine Cm MD [address] [address] [place] 270675 Assigned Heart and Vascular Provider 07/24/22 11/05/22 Johnny Murillo MD [address] [place] [address] [phone] Assigned Musculoskeletal Provider 08/14/22 10/08/22 Brea Quinn APRN IRRIGATOR HEAD [address] [place] [address] [id number] Nurse Practitioner Dermatology 09/21/22 Brea Quinn APRN IRRIGATOR HEAD 6401 [facility] [place] [address] Assigned Surgical Provider 10/09/22 05/01/24 [place] [address] [place] [address] Assigned Musculoskeletal Provider 10/09/22 05/01/24 Livan Sharif MD [address] [address] [place] [address] Assigned Heart and Vascular Provider 11/06/22 11/12/22 Catherine Cm MD [address] [address] [place] [address] Assigned Heart and Vascular Provider 11/13/22 05/27/23 Sydnie Martinez, RN Personal Advocate & Liaison (PAL) Family Medicine 03/28/23 07/31/23 Alfonso Renteria MD 5775 [facility] 200 [place] [address] Assigned Neuroscience Provider 04/02/23 09/29/24 Cheng Todd PA-C [address] [place] [address] [phone] Assigned PCP 04/30/23 07/15/23 Radha Lomeli APRN IRRIGATOR HEAD [address] [address] [place] [address] Assigned Heart and Vascular Provider 05/28/23 11/29/24 Jelena David OD [address] [facility] [place] [address] MD Ophthalmology 06/15/23 Pao Joseph, RN Personal Advocate & Liaison (PAL) Nurse 08/01/23 11/07/23 Esha Grimm PA-C [address] [place] [phone] Assigned PCP 07/16/23 Valery Veronica PA-C [address] [place] [address] 101605 Physician Underwater Photographer Dermatology 09/19/23 Rey Tay MD [address] [place] [address] 116775 MD Gastroenterology 09/20/23 Rocky Zepeda DO [address] [place] [address] 546185 Physician Gastroenterology 09/20/23 Philip Dumont MD [address] [place] [address] 653265 Physician Ophthalmology 09/22/23 Meredith Carrera PA-C [address] [place] [address] 720555 Assigned Gastroenterology Provider 11/01/23 Neil Kent MD [address] 236230 Dermatology 11/02/23 [place] [address] [place] [address] Neurological Surgery 12/26/23 Audrey Waite PA-C 500 [place] [address] Physician Underwater Photographer Dermatology 02/28/24 Valery Veronica PA-C [address] [place] [address] Physician Underwater Photographer Dermatology 04/10/24 Herminia Hatch MD [address] [place] [address] [phone] Assigned Rheumatology Provider 07/02/24 [place] [address] [place] [address] [place] [address] Ophthalmology 08/30/24 [place] [address] [place] [address] Assigned Neuroscience Provider 09/30/24 Maru Man PA-C [address] [place] [address] Physician Underwater Photographer Dermatology 10/03/24 Maru Man PA-C [address] [place] [address] Physician Underwater Photographer Dermatology 10/22/24 Jelena David OD [address] [facility] [place] [address] Assigned Surgical Provider 10/31/24 Fabiano Correa NP [address] [place] 800255 Assigned Heart and Vascular Provider 11/30/24 Walter Nowak MD [address] [place] 275445 Physician Clinical Cardiac Electrophysiology 03/01/25 Liset Márquez MD [address] [place] [address] electrical maintenance mechanic 03/13/25 Lauren Coronado, [facility] 909 [place], [place] 332685 Pharmacist Pharmacist 04/15/25 documented as of this encounter
--- OUTSIDE RECORDS SUMMARY | 2025-04-26 23:53 | XMS_ITS | Encounter Summary ---
Author Organization [facility] Address [address] [place] [address] Care Team Providers Care Crab Fisherman Name Role Phone Lita Oseguera Unavailable Unavailable Marija Edgar APRN STEAM SERVICE INSPECTOR Primary Care Provider + Marija Edgar APRN STEAM SERVICE INSPECTOR Unavailable [phone] Keisha Dotson MD Unavailable Diana Desir [facility] Unavailable Rain Galaviz PA-C Unavailable Tavia Wyatt MD Unavailable Erica Farrell APRN STEAM SERVICE INSPECTOR Unavailable Tavia Wyatt MD Unavailable [phone] Rich Barrett MD Unavailable [phone] Neil Kent MD Unavailable Roney Story DPM Unavailable Diana Desir [facility] Unavailable Jelena David OD Unavailable Galo Burrell MD Unavailable Unavailable Livan Sharif MD Unavailable Livan Sharif MD Unavailable IsCatherine hobbs MD Unavailable + Valery Veronica PA-C Unavailable Catherine Cm MD Unavailable + Johnny Murillo MD Unavailable Brea Quinn MARKET MANAGER STEAM SERVICE INSPECTOR Unavailable [phone] Brea Quinn MARKET MANAGER STEAM SERVICE INSPECTOR Unavailable [phone] Jose Francisco Johnson MD Unavailable Livan Sharif MD Unavailable Catherine Cm MD Unavailable + Sydnie Martinez RN Unavailable Unavailable Alfonso Renteria MD Unavailable [phone] Esha Grimm PA-C Primary Care Provider Cheng Todd PA-C Unavailable Radha Lomeli MARKET MANAGER STEAM SERVICE INSPECTOR Unavailable Jelena David OD Unavailable Pao Joseph RN Unavailable Unavailable Esha Grimm PA-C Unavailable [phone] Valery Veronica PA-C Unavailable Rey Tay MD Unavailable Rocky Zepeda DO Unavailable Philip Dumont MD Unavailable Meredith Carrera PA-C Unavailable Neil Kent MD Unavailable Juan Pablo Emmanuel MD Unavailable Audrey Waite PA-C Unavailable Valery Veronica PA-C Unavailable Herminia Hatch MD Unavailable Jelena David OD Unavailable Juan Pablo Emmanuel MD Unavailable [phone] Maru Man PA-C Unavailable [phone] Maru Man PA-C Unavailable [phone] Jelena David OD Unavailable Fabiano Correa NP Unavailable [phone] Walter Nowak MD Unavailable Liset Márquez MD Unavailable Lauren Coronado [facility] Unavailable [phone] Encounter Details Date Type Department Care Team (Late st Contact Info) Description 04/20/2022 MyC Medical Advice [facility] [address] [place] [phone] Margaret Rendon, RN Social History Tobacco Use [...] How often do you attend anglican or jewish serv ices? Never 09/22/2021 Do [...] Answer Date Recorded PHQ-2 Score 2 12/18/2021 [facility] of Occupat ional Health [...] in a custodial (including now)? No 09/22/2021 [place] Depression Scale Answer Date Recorded [place] Depression Score 5 01/14/2021 Last EPDS Self Harm Result Not on file 01/14 Education Answer Date Recorded What is the highest level of school you have completed or the highest degree you have received? 12th grade 08/07/2020 Comments No Sex and Gender Information Value Date Recorded Sex Assigned at Female 03/02/2021 5:45 PM CDT Legal Sex Female 4:13 AM HABILITATION TRAINING SPECIALIST Gender Identity Female 03/02/2021 5:45 PM [...] AM CDT Office Visit [facility] [address], [address] [place] [address] Liset Márquez MD [address] [place], [place] 6768[address] 05/30/2025 2:45 PM HABILITATION TRAINING SPECIALIST Office Visit [facility] Dee 6[address] [facility] [address] [place] [phone] Fabiano Correa, BRYCE [address] [place] 528135 Walter Nowak MD [address] [place] [address] 08/07/2025 8:15 AM HABILITATION TRAINING SPECIALIST Office Visit [facility] 6405 [facility] [address] [place] [phone] Lucien Grimes MD [address] [facility]00 [place] 111825 08/21/2025 9:00 AM HABILITATION TRAINING SPECIALIST Office Visit [facility] [address] [address] Neil Kent MD 500 [place], [place] 732[address] 10/09/2025 10:45 AM CDT Virtual Visit [facility] [place] [address] [place] [address] 4th [place] [phone] Meredith Carrera PA-C [address] [place] [address] 464645 documented as of this encounter Visit Diagnoses Not on filedocumented in this encounter Additional Health Concerns Infection Onset Date Last Indicated Resolved Time Rule Out COVID-19 04/26/2022 04/26/2022 04/26/2022 6:47 AM CDT Rule Out COVID-19 05/17/2022 05/17/2022 05/17/2022 10:20 PM HABILITATION TRAINING SPECIALIST Rule Out COVID-19 06/09/2022 06/09/2022 06/09/2022 9:35 AM HABILITATION TRAINING SPECIALIST COVID-06/09/2022 06/09/2022 06/30/2022 11:4 1 PM HABILITATION TRAINING SPECIALIST Rule Out COVID-19 11/10/2022 11/10/2022 [...] documented as of this encounter Care Teams Crab Fisherman Relationship Specialty Start Date End Date Marija Edgar APRN STEAM SERVICE INSPECTOR PCP - General Nurse Practitioner 04/30/20 04/14/23 Esha Grimm PA-C [address] [place] [address] PCP - General Family Medicine 05/04/23 Lita Oseguera Personal Advocate & Liaison (PAL) 02/28/20 03/27/23 Marija Edgar APRN STEAM SERVICE INSPECTOR Assigned PCP 06/08/20 04/29/23 Keisha Dotson MD [address] [place] [address] Assigned Neuroscience Provider 06/04/20 04/01/23 Diana Desir, [facility] 3033 [place] [address] Pharmacist Pharmacist 04/17/21 Rain Galaviz PA-C [address] [place] [address] [address] [place] [address] Physician Stamping Press Operator Dermatology 04/28/21 Tavia Wyatt MD [address] [place] [address] [address] [place] [address] Dermatology 07/14/21 Erica Farrell APRN STEAM SERVICE INSPECTOR 6[address] [facility] [address] [place], [place] 690485 Nurse Practitioner Cardiovascular Disease 09/09/21 Tavia Wyatt MD 101 [place] [address] Assigned Surgical Provider 11/29/21 05/07/22 Rich Barrett MD 101 [place] [address] Physician Ophthalmology 01/21/22 Neil Kent MD 500 [place] [address] Dermatology 02/24/22 [place] [address] [facility] 300 [place] [address] Assigned Musculoskeletal Provider 03/20/22 08/13/22 Diana Desir, [facility] [address] [place] [address] Assigned MTM Pharmacist 04/07/22 Jelena David OD [address] [facility] [place] [address] Assigned Surgical Provider 05/08/22 10/08/22 Galo Burrell MD Assigned Heart and Vascular Provider 04/17/22 06/11/22 Livan Sharif MD [address] [address] [place] [address] Cardiovascular Disease 05/14/22 Livan Sharif MD [address] [address] [place] 477955 Assigned Heart and Vascular Provider 06/12/22 07/23/22 Catherine Cm MD [address] [address] [place] [address] Cardiovascular Disease 07/21/22 Valery Veronica, PAUcheC 909 [place], [place] 659875 Physician Stamping Press Operator Dermatology 07/21/22 Catherine Cm MD [address] [address] [place] [address] Assigned Heart and Vascular Provider 07/24/22 11/05/22 Johnny Murillo MD [facility] [address] [address] Assigned Musculoskeletal Provider 08/14/22 10/08/22 Brea Quinn APRN STEAM SERVICE INSPECTOR [address] [place] [address] Nurse Practitioner Dermatology 09/21/22 Brea Quinn APRN STEAM SERVICE INSPECTOR [facility] [place] [address] Assigned Surgical Provider 10/09/22 05/01/24 [place] [address] [address] Assigned Musculoskeletal Provider 10/09/22 05/01/24 Livan Sharif MD [address] [facility] [address] [place] [address] Assigned Heart and Vascular Provider 11/06/22 11/12/22 Catherine Cm MD 6[address] [facility] [address] [place] [address] Assigned Heart and Vascular Provider 11/13/22 05/27/23 Sydnie Martinez RN Personal Advocate & Liaison (PAL) Family Medicine 03/28/23 07/31/23 Alfonso Renteria MD [address] [facility] [address] [place], [place] 403926 Assigned Neuroscience Provider 04/02/23 09/29/24 Cheng Todd PA-C [address] [place] [address] [id number] Assigned PCP 04/30/23 07/15/23 Radha Lomeli APRN STEAM SERVICE INSPECTOR [address] [facility] [address] [place] [address] Assigned Heart and Vascular Provider 05/28/23 11/29/24 Jelena David OD [address] [facility] [place] [address] MD Ophthalmology 06/15/23 Pao Joseph, VJ Personal Advocate & Liaison (PAL) Nurse 08/01/23 11/07/23 Esha Grimm PA-C [address] [place] [phone] Assigned PCP 07/16/23 Valery Veronica PA-C [address] [place] [address] 793815 Physician Stamping Press Operator Dermatology 09/19/23 Rey Tay MD [address] [place] [address] Gastroenterology 09/20/23 Rocky Zepeda DO [address] [place] [address] 611915 Physician Gastroenterology 09/20/23 Philip Dumont MD [address] [place] [address] 731355 Physician Ophthalmology 09/22/23 Meredith Carrera PA-C [address] [place] [address] Assigned Gastroenterology Provider 11/01/23 Neil Kent MD [address] [address] Dermatology 11/02/23 [place] [address] [place] [address] 973817 Neurological Surgery 12/26/23 Audrey Waite PA-C [address] [place] [address] Physician Stamping Press Operator Dermatology 02/28/24 Valery Veronica PA-C [id number] [address] [place] [address] 837279 Physician Stamping Press Operator Dermatology 04/10/24 Herminia Hatch MD [address] [place] [address] [phone] Assigned Rheumatology Provider 07/02/24 [place] [address] [place] [address] [place] [address] Ophthalmology 08/30/24 [place] [address] [place] [address] Assigned Neuroscience Provider 09/30/24 Maru Man PA-C [address] [place] [address] Physician Stamping Press Operator Dermatology 10/03/24 Maru Man PA-C [address] [place] [address] Physician Stamping Press Operator Dermatology 10/22/24 Jelena David OD [address] [facility] [place] [address] Assigned Surgical Provider 10/31/24 Fabiano Correa NP [address] [place] [address] Assigned Heart and Vascular Provider 11/30/24 Walter Nowak MD [address] [place] [address] Physician Clinical Cardiac Electrophysiology 03/01/25 Liset Márquez MD [address] [facility] 300 [place] [address] hotbed transfer operator 03/13/25 Lauren Coronado, [facility] 909 [place], [place] 312815 Pharmacist Pharmacist 04/15/25 documented as of this encounter
--- OUTSIDE RECORDS SUMMARY | 2025-04-26 23:53 | XMS_ITS | Encounter Summary ---
Author Organization [facility] Address [address] [place] [address] Care Team Providers Care Brine Plant Operator Name Role Phone Lita Oseguera Unavailable Unavailable Marija Edgar APRN STONECUTTER HAND Primary Care Provider + Chanelle Mccann APRN CNM Unavailab le Kyara De La Fuente RN Unavailable [phone] Marija Edgar APRN STONECUTTER HAND Unavailable Mynor Broussard MD Unavailable [phone] Keisha Dotson MD Unavailable Stacey Briones GROUP HOME MANAGER Unavailable [phone] Lesley Guillermo CH Unavailable Mary Mejia Unavailable Unavailable Lita Oseguera Unavailable Unavailable Galo Burrell MD Unavailable Unavailable Cristina Wood Unavailable Lesley Guillermo CHW Unavailable Meredith Bedoya Unavailable Unavailable Cristina Wood Unavailable Diana Desir [facility] Unavailable Rain GalavizC Unavailable [phone] Summer Lara MD Unavailable [phone] Summer Lara MD Unavailable [phone] Summer Lara MD Unavailable [phone] Tavia Wyatt MD Unavailable [phone] Johnny Murillo MD Unavailable +1- Erica Farrell APRN STONECUTTER HAND Unavailable Vikas Teresitafazal Watson H Unavailable Tavia Wyatt MD Unavailable [phone] Diana Desir [facility] Unavailable [phone] Rich Barrett MD Unavailable Neil Kent MD Unavailable Roney StoryM Unavailable [phone] Erica Farrell APRN STONECUTTER HAND Unavailable Diana Desir [facility] Unavailable [phone] Jelena David OD Unavailable Galo Burrell MD Unavailable Unavailable Livan Sharif MD Unavailable + Livan Sharif MD Unavailable + Catherine Cm MD Unavailable + Valery Veronica PA-C Unavailable [phone] Catherine Cm MD Unavailable + Johnny Murillo MD Unavailable +1- Brea Quinn APRN STONECUTTER HAND Unavailable [phone] Brea Quinn APRN STONECUTTER HAND Unavailable [phone] Jose Francisco Johnson MD Unavailable Livan Sharif MD Unavailable + Catherine Cm MD Unavailable + Sydnie Maritnez RN Unavailable Unavailable Alfonso Renteria MD Unavailable [phone] Esha Grimm PA-C Primary Care Provider Perez Chengjc Fish PA-C Unavailable Armani Radha Stovall ARLENE GRNAADOS Unavailable Jelena David OD Unavailable Pao Joseph RN Unavailable Unavailable Esha Grimm PA-C Unavailable [phone] Valery Veronica PA-C Unavailable Rey Tay [...] Lauren Coronado [facility] Unavailable [phone] Encounter Details Date Type Department Care Team (Late st Contact Info) Description 08/24/2020 MyC Medical Advice [address] [phone] Marija Edgar APRN [facility] [address] [facility] [place] [address] Social History Tobacco Use Types [...] CDT Legal Sex Female 4:13 AM COMPLIANCE NURSE Gender Identity Female 03/02/2021 5:45 PM CDT Sexual Orientation Straight 02/28/2020 12 :51 AM CDT COVID-19 Exposure Response Date Recorded In the last month, have you been in contact with someone who was confirmed or suspected to have Coronavirus / COVID-19? No / Unsure 08/20/2020 12:47 PM COMPLIANCE NURSE documented as of this encounter Miscellaneous Notes * Telephone Encounter - Marija Edgar APRN CNP - 08/25/2020 11:47 AM COMPLIANCE NURSE Replied via MyChart Marija Edgar APRN STONECUTTER HAND on 08/25/2020 at 11:51 AM LIANCE NURSE documented in this encounter Plan of Treatment Upcoming Encounters Date Type Department Care Team (Late st Contact Info) Description 04/30/2025 10:30 AM CDT Office Visit [facility] [address] [place] [phone] Liset Márquez MD [address] [place] [address] 05/30/2025 2:45 PM COMPLIANCE NURSE Office Visit [facility] [address] [facility] [address] [phone] Fabiano Correa NP [address] [facility] [place] [address] Walter Nowak MD [address] [place] [id number] 08/07/2025 8:15 AM COMPLIANCE NURSE Office Visit [facility] [address] [facility] [address] [place] [phone] Lucien Grimes MD [address] [place] [id number] 08/21/2025 9:00 AM COMPLIANCE NURSE Office Visit [facility] [address] [phone] Neil Kent MD [address] [place] [phone] 10/09/2025 10:45 AM CDT Virtual Visit [facility] [address] [place] [phone] Meredith Carrera PA-C [address] [place] [address] [phone] documented as of this encounter Visit Diagnoses Not on filedocumented in this encounter Additional Health Concerns Infection Onset Date Last Indicated Resolved Time Rule Out COVID-19 08/30/2020 08/30/2020 08/30/2020 5:05 PM COMPLIANCE NURSE Rule Out COVID-19 09/24/2020 09/24/2020 09/24/2020 9:24 AM CDT Rule Out COVID-19 11/05/2020 11/05/2020 11/06/2020 1:09 PM CDT Rule Out COVID-19 05/11/2021 05/11/2021 05/13/2021 10:18 AM CDT Rule Out COVID-19 07/13/2021 07/13/2021 07/14/2021 3:04 PM COMPLIANCE NURSE Rule Out COVID-19 07/18/2021 07/18/2021 07/20/2021 1:56 PM COMPLIANCE NURSE COVID-19 07/18/2021 07/18/2021 08/08/2021 11:3 9 PM COMPLIANCE NURSE Rule Out COVID-19 12/18/2021 12/18/2021 12/19/2021 11:34 AM CDT Rule Out COVID-19 02/24/2022 02/24/2022 02/25/2022 1:08 PM CDT Rule Out COVID-19 04/26/2022 04/26/2022 04/26/2022 6:47 AM CDT Rule Out COVID-19 05/17/2022 05/17/2022 05/17/2022 10:20 PM COMPLIANCE NURSE Rule Out COVID-19 06/09/2022 06/09/2022 06/09/2022 9:35 AM COMPLIANCE NURSE COVID-19 06/09/2022 06/09/2022 06/30/2022 11:4 1 PM COMPLIANCE NURSE Rule Out COVID-19 11/10/2022 11/10/2022 11/11/2022 [...] Total Score: 9 06/25/20 20 7:04 AM COMPLIANCE NURSE documented as of this encounter Care Teams Brine Plant Operator Relationship Specialty Start Date End Date Marija Edgar APRN STONECUTTER HAND PCP - General Nurse Practitioner 04/30/20 04/14/23 Esha Grimm PA-C [address] [place] [phone] PCP - General Family Medicine 05/04/23 Lita Oseguera Personal Advocate & Liaison (PAL) 02/28/20 03/27/23 Chanelle Mccann, [place] [address] [place] [address] [phone] Assigned OBGYN Provider 05/02/2005/09 Kyara De La Fuente, VJ Specialty Optical Lathe Operator Neurology 06/04/20 03/05/21 Marija Edgar APRN STONECUTTER HAND Assigned PCP 06/08/20 04/29/23 Mynor Broussard MD [address] [place], [place] 196235 Assigned Surgical Provider 06/01/20 11/28/21 Keisha Dotson MD 9 [place] [address] Assigned Neuroscience Provider 06/04/20 04/01/23 Stacey Briones, GROUP HOME MANAGER Lead Optical Lathe Operator Primary Care - CC 08/11/20 12/30/20 Lesley Guillermo, W Community Health Worker 08/11/20 10/01/20 Mary Mejia Financial Resource Worker 2/23/21 3/29/21 Lita Oseguera Personal Advocate & Liaison (PAL) Family Medicine 09/10/20 09/21/20 Galo Burrell MD Assigned Heart and Vascular Provider 10/05/20 04/02/22 Cristina Wood Financial Resource Worker 10/07/20 10/14/20 Lesley Guillermo, [facility] Community Health Worker 10/23/20 12/30/20 Meredith Bedoya Financial Resource Worker 10/23/20 11/23/20 Cristina Wood Financial Resource Worker 02/09/21 02/09/21 Diana Desir, [facility] [address] [place], [place] [phone] Pharmacist Pharmacist 04/17/21 Rain Galaviz PA-C [address] [place] [address] [address] [place], [place] [phone] Physician Tank Maker Wood Dermatology 04/28/21 Summer Lara MD [address] [place] [address] [phone] Assigned OBGYN Provider 05/10/2105/23 Summer Lara MD [address] [place] [address] 408304 Assigned OBGYN Provider 05/31/21 Summer Lara MD [address] [place] [address] Assigned OBGYN Provider 05/24/2105/30 Tavia Wyatt MD [address] [place] [address] Dermatology 07/14/21 Johnny Murillo MD [address] [place] [address] Assigned Musculoskeletal Provider 08/30/21 03/17/22 Erica Farrell APRN STONECUTTER HAND [address] [facility] [address] [place] [address] Nurse Practitioner Cardiovascular Disease 09/09/21 Teresita Bean, [facility] [address] [place] [phone] Pharmacist Pharmacist 09/24/21 09/29/21 Tavia Wyatt MD [address] [place] [address] Assigned Surgical Provider 11/29/21 05/07/22 Diana Desir, [facility] [address] [place] [address] Assigned MTM Pharmacist 01/02/22 Rich Barrett MD [address] [place] [address] Physician Ophthalmology 01/21/22 Neil Kent MD [address] [place] [address] Dermatology 02/24/22 Roney Story DPM [address] [facility] [address] [place], [place] 736187 Assigned Musculoskeletal Provider 03/20/22 08/13/22 Erica Farrell APRN STONECUTTER HAND [address] [place] [address] Assigned Heart and Vascular Provider 04/03/22 04/16/22 Diana Desir, [facility] [address] [place], [place] [phone] Assigned MTM Pharmacist 04/07/22 Jelena David OD [address] [place] [address] Assigned Surgical Provider 05/08/22 10/08/22 Galo Burrell MD Assigned Heart and Vascular Provider 04/17/22 06/11/22 Livan Sharif MD [address] [place] [address] Cardiovascular Disease 05/14/22 Livan Sharif MD [address] [place] [address] Assigned Heart and Vascular Provider 06/12/22 07/23/22 Catherine Cm MD [address] [place], [place] 174095 Cardiovascular Disease 07/21/22 Valery Veronica, PA-C [address] [place] [address] Physician Tank Maker Wood Dermatology 07/21/22 Catherine Cm MD [address] [facility] [address] [place] [address] [place] [address] Assigned Heart and Vascular Provider 07/24/22 11/05/22 Johnny Murillo MD [address] [place] [address] Assigned Musculoskeletal Provider 08/14/22 10/08/22 Brea Quinn APRN STONECUTTER HAND [address] [place] [address] 116595 Nurse Practitioner Dermatology 09/21/22 Brea Quinn APRN STONECUTTER HAND [address] [place] [address] Assigned Surgical Provider 10/09/22 05/01/24 [place] [address] [place] [address] Assigned Musculoskeletal Provider 10/09/22 05/01/24 Livan Sharif MD [address] [facility] [place] [address] Assigned Heart and Vascular Provider 11/06/22 11/12/22 Catherine Cm MD [address] [facility]00 [place] [address] Assigned Heart and Vascular Provider 11/13/22 05/27/23 Sydnie Martinez RN Personal Advocate & Liaison (PAL) Family Medicine 03/28/23 07/31/23 Alfonso Renteria MD [address] [facility] [address] [place] [address] Assigned Neuroscience Provider 04/02/23 09/29/24 Cheng Todd PA-C [address] [place] [address] Assigned PCP 04/30/23 07/15/23 Radha Lomeli APRN STONECUTTER HAND [address] [facility] [address] [place] [address] Assigned Heart and Vascular Provider 05/28/23 11/29/24 Jelena David OD [address] [place] [address] Ophthalmology 06/15/23 Pao Joseph, VJ Personal Advocate & Liaison (PAL) Nurse 08/01/23 11/07/23 Esha Grimm PA-C [address] [place] [phone] Assigned PCP 07/16/23 Valery Veronica PA-C [address] [place] [address] 858165 Physician Tank Maker Wood Dermatology 09/19/23 Rey Tay MD [address] [place] [address] Gastroenterology 09/20/23 Rocky Zepeda DO [address] [place] [address] Physician Gastroenterology 09/20/23 Philip Dumont MD 6 [place] [address] Physician Ophthalmology 09/22/23 Meredith Carrera PA-C [address] [place] [address] Assigned Gastroenterology Provider 11/01/23 Neil Kent MD [address] [place] [address] MD Dermatology 11/02/23 Juan [place] [id number] [place] [address] [facility] [address] Neurological Surgery 12/26/23 Audrey Waite PA-C [address] [place] [address] Physician Tank Maker Wood Dermatology 02/28/24 Valery Veronica PA-C 171861 [place], [place] [address] Physician Tank Maker Wood Dermatology 04/10/24 Herimnia Hatch MD [address] [place] [address] [phone] Assigned Rheumatology Provider 07/02/24 [place] [address] [place] [address] [place] [address] Ophthalmology 08/30/24 [place] [address] [place] [address] Assigned Neuroscience Provider 09/30/24 Maru Man PA-C [address] [place] [address] Physician Tank Maker Wood Dermatology 10/03/24 Maru Man PA-C [address] [place] [address] [phone] Physician Tank Maker Wood Dermatology 10/22/24 Jelena David OD [address] [place] [address] Assigned Surgical Provider 10/31/24 Fabiano Correa NP [address] [place] 348005 Assigned Heart and Vascular Provider 11/30/24 Walter Nowak MD [address] [place] 880365 Physician Clinical Cardiac Electrophysiology 03/01/25 Liset Márquez MD [address] [facility] 300 [place] [address] electrical project manager 03/13/25 Lauren Coronado, [facility] [address] [place], [place] 346[address] Pharmacist Pharmacist 04/15/25 documented as of this encounter
--- OUTSIDE RECORDS SUMMARY | 2025-04-26 23:53 | XMS_ITS | Encounter Summary ---
Author Organization [facility] Address [address] [place] [address] Care Team Providers Care Overnight Caregiver Name Role Phone Lita Oseguera Unavailable Unavailable Marija Edgar APRN FIRER DIESEL LOCOMOTIVE Primary Care Provider + Chanelle Mccann APRN CNM Unavailab le Kyara De La Fuente RN Unavailable [phone] Marija Edgar APRN FIRER DIESEL LOCOMOTIVE Unavailable Mynor Broussard MD Unavailable [phone] Keisha Dotson MD Unavailable Stacey Briones CHEMISTRY INTERN Unavailable [phone] Lesley Guillermo CH Unavailable Mary Mejia Unavailable Unavailable Lita Oseguera Unavailable Unavailable Galo Burrell MD Unavailable Unavailable Cristina Wood Unavailable Lesley Guillermo CHW Unavailable Meredith Bedoya Unavailable Unavailable Cristina Wood Unavailable Diana Desir [facility] Unavailable Rain GalavizC Unavailable Summer Lara MD Unavailable [phone] Summer Lara MD Unavailable [phone] Summer Lara MD Unavailable [phone] Tavia Wyatt MD Unavailable [phone] Johnny Murillo MD Unavailable +1- Erica Farrell APRN FIRER DIESEL LOCOMOTIVE Unavailable Vikas Teresitafazal Watson H Unavailable Tavia Wyatt MD Unavailable [phone] Diana Desir [facility] Unavailable [phone] Rich Barrett MD Unavailable Neil Kent MD Unavailable Roney StoryM Unavailable [phone] Erica Farrell APRN FIRER DIESEL LOCOMOTIVE Unavailable Diana Desir [facility] Unavailable [phone] Jelena David OD Unavailable Galo Burrell MD Unavailable Unavailable Livan Sharif MD Unavailable + Livan Sharif MD Unavailable + Catherine Cm MD Unavailable + Valery Veronica PA-C Unavailable [phone] Catherine Cm MD Unavailable + Johnny Murillo MD Unavailable +1- Brea Quinn APRN FIRER DIESEL LOCOMOTIVE Unavailable [phone] Brea Quinn APRN FIRER DIESEL LOCOMOTIVE Unavailable [phone] Jose Francisco Johnson MD Unavailable Livan Sharif MD Unavailable + Catherine Cm MD Unavailable + Sydnie Martinez RN Unavailable Unavailable Alfonso Renteria MD Unavailable [phone] Esha Grimm PA-C Primary Care Provider Perez Chengjc Fish PA-C Unavailable Armani Radha Stovall ARLENE GRANADOS Unavailable Jelena David OD Unavailable Pao Joseph RN Unavailable Unavailable Esha Grimm PA-C Unavailable [phone] Valery Veronica PA-C Unavailable Rey Tay MD Unavailable Rocky Zepeda DO Unavailable Pihlip Dumont MD Unavailable Meredith Carrera PA-C Unavailable [...] Unavailable Lauren Coronado [facility] Unavailable [phone] Reason for Visit * Reason Onset Date Comments MyChart Communication 09/02/2020 Encounter Details Date Type Department Care Team (Latest Contact Info) Description 09/02/2020 MyC Medical Advice [address] [phone] Marija Edgar, ARLENE FIRER DIESEL LOCOMOTIVE [address] [place] [place] [address] MyChart Communication Social History Tobacco Use [...] Answer Date Recorded PHQ-2 Score 0 08/12/2020 [facility] [place] of Occupat ional Health - Occupational Stress [...] COVID-19? No / Unsure 09/05/2020 2:50 PM CONSULTING IT ARCHITECT documented as of this encounter Miscellaneous Notes * Telephone Encounter - Ever Cardozo MA - 09/03/2020 10:34 AM CST Responded to patient as below. Ever Cardozo ROAD SIGN INSTALLER ([facility]) ULTING IT ARCHITECT documented in this encounter Plan of Treatment Upcoming Encounters Date Type Department Care Team (Late st Contact Info) Description 04/30/2025 10:30 AM CDT Office Visit [facility] [place] [address], [address] [place] [phone] Liset Márquez MD [address] [place] [address] 05/30/2025 2:45 PM CONSULTING IT ARCHITECT Office Visit [facility] Heart [facility] [address] [facility] [address] [place] [phone] Fabiano Correa, SPARK PLUG TESTER [address] [facility] [place] [phone] Walter Nowak MD [address] [place] [id number] 08/07/2025 8:15 AM CONSULTING IT ARCHITECT Office Visit [facility] Heart [facility] [address] [place] [phone] Lucien Grimes MD [address] [place] [address] 08/21/2025 9:00 AM CONSULTING IT ARCHITECT Office Visit [facility] [address] [phone] Neil Kent MD [address] [place] [address] [phone] 10/09/2025 10:45 AM CDT Virtual Visit [facility] Gastroenterology [facility] [place] [address] [place] [address] 4th [place] [phone] Meredith Carrera PA-C [address] [place] [address] [phone] documented as of this encounter Visit Diagnoses Not on filedocumented in this encounter Additional Health Concerns Infection Onset Date Last Indicated Resolved Time Rule Out COVID-19 09/24/2020 09/24/2020 09/24/2020 9:24 AM CDT Rule Out COVID-19 11/05/2020 11/05/2020 11/06/2020 1:09 PM CDT Rule Out COVID-19 05/11/2021 05/11/2021 05/13/2021 10:18 AM CDT Rule Out COVID-19 07/13/2021 07/13/2021 07/14/2021 3:04 PM CONSULTING IT ARCHITECT Rule Out COVID-19 07/18/2021 07/18/2021 07/20/2021 1:56 PM CONSULTING IT ARCHITECT COVID-19 07/18/2021 07/18/2021 08/08/2021 11:3 9 [...] Total Score: 9 06/25/20 20 7:04 AM CONSULTING IT ARCHITECT documented as of this encounter Care Teams Overnight Caregiver Relationship Specialty Start Date End Date Marija Edgar APRN [facility] PCP - General Nurse Practitioner 04/30/20 04/14/23 Esha Grimm PA-C [address] [place] [phone] PCP - General Family Medicine 05/04/23 Lita Oseguera Personal Advocate & Liaison (PAL) 02/28/20 03/27/23 Chanelle Mccann APRN [place] [address] [address] [facility] [address] [place] [address] Assigned OBGYN Provider 05/02/2005/09 Kyara De La Fuente, RN Specialty Plant Changer Neurology 06/04/20 03/05/21 Marija Edgar APRN FIRER DIESEL LOCOMOTIVE Assigned PCP 06/08/20 04/29/23 Mynor Broussard MD [address] [place] [address] [phone] Assigned Surgical Provider 06/01/20 11/28/21 Keisha Dotson MD [address] [place] [address] Assigned Neuroscience Provider 06/04/20 04/01/23 Stacey Briones, CHEMISTRY INTERN Lead Plant Changer Primary Care - CC 08/11/20 12/30/20 Lesley Guillermo, CHW Community Health Worker 08/11/20 10/01/20 Mary Mejia Financial Resource Worker 09/02/20 10/06/20 Lita Oseguera Personal Advocate & Liaison (PAL) Family Medicine 09/10/20 09/21/20 Galo Burrell MD Assigned Heart and Vascular Provider 10/05/20 04/02/22 Cristina Wood Financial Resource Worker 10/07/20 10/14/20 Lesley Guillermo, [facility] Community Health Worker 10/23/20 12/30/20 Meredith Bedoya Financial Resource Worker 10/23/20 11/23/20 Cristina Wood Financial Resource Worker 02/09/21 02/09/21 Diana Desir, [facility] [address] [place] [address] Pharmacist Pharmacist 04/17/21 Rain Galaviz PA-C [address] [place] [address] [address] [place], [place] [phone] Physician Government Auditor Dermatology 04/28/21 Summer Lara MD [address] [place] [address] [phone] Assigned OBGYN Provider 05/10/2105/23 Summer Lara MD [address] [place] [address] [phone] Assigned OBGYN Provider 05/31/21 Summer Lara MD [address] [place] [address] [phone] Assigned OBGYN Provider 05/24/2105/30 Tavia Wyatt MD [address] [place] [address] Dermatology 07/14/21 Johnny Murillo MD [address] [place] [address] Assigned Musculoskeletal Provider 08/30/21 03/17/22 Erica Farrell APRN FIRER DIESEL LOCOMOTIVE [address] [facility] [address] [place] [address] Nurse Practitioner Cardiovascular Disease 09/09/21 Teresita Bean, [facility] [address] [place] [address] Pharmacist Pharmacist 09/24/21 09/29/21 Tavia Wyatt MD [address] [place] [address] Assigned Surgical Provider 11/29/21 05/07/22 [facility] [address] [place] [address] Assigned MTM Pharmacist 01/02/22 Rich Barrett MD [address] [place] [address] Physician Ophthalmology 01/21/22 Neil Kent MD [address] [place] [address] Dermatology 02/24/22 Roney Story DPM [address] [place] [address] Assigned Musculoskeletal Provider 03/20/22 08/13/22 Erica Farrell APRN FIRER DIESEL LOCOMOTIVE [address] [place] [address] Assigned Heart and Vascular Provider 04/03/22 04/16/22 [facility] [address] [place] [address] Assigned MTM Pharmacist 04/07/22 Jelena David OD [address] [place] [address] Assigned Surgical Provider 05/08/22 10/08/22 Galo Burrell MD Assigned Heart and Vascular Provider 04/17/22 06/11/22 Livan Sharif MD [address] [place] 8[address] Cardiovascular Disease 05/14/22 Livan Sharif MD [address] [place] [phone] Assigned Heart and Vascular Provider 06/12/22 07/23/22 Catherine Cm MD [address] [facility] [address] [place] [address] Cardiovascular Disease 07/21/22 Valery Veronica, PAUcheC [address] [place], [place] 527135 Physician Government Auditor Dermatology 07/21/22 Catherine Cm MD [address] [address] [place] [address] Assigned Heart and Vascular Provider 07/24/22 11/05/22 Johnny Murillo MD [address] [place] [address] [phone] Assigned Musculoskeletal Provider 08/14/22 10/08/22 Brea Quinn APRN FIRER DIESEL LOCOMOTIVE [address] [place] [address] [phone] Nurse Practitioner Dermatology 09/21/22 Brea Quinn APRN FIRER DIESEL LOCOMOTIVE [address] [place] [address] [place] [address] Assigned Surgical Provider 10/09/22 05/01/24 [place] [address] [place] [address] [address] Assigned Musculoskeletal Provider 10/09/22 05/01/24 Livan Sharif MD [address] [address] [place] [address] Assigned Heart and Vascular Provider 11/06/22 11/12/22 Catherine Cm MD [address] [address] [place] [address] Assigned Heart and Vascular Provider 11/13/22 05/27/23 Juan, Sydnie M, RN Personal Advocate & Liaison (PAL) Family Medicine 03/28/23 07/31/23 Alfonso Renteria MD [address] [facility] [address] [place] [address] Assigned Neuroscience Provider 04/02/23 09/29/24 Cheng Todd PA-C [address] [place] [address] Assigned PCP 04/30/23 07/15/23 Radha Lomeli APRN FIRER DIESEL LOCOMOTIVE [address] [facility] [place] [address] Assigned Heart and Vascular Provider 05/28/23 11/29/24 Jelena David OD [address] [place] [address] Ophthalmology 06/15/23 Pao Joseph RN Personal Advocate & Liaison (PAL) Nurse 08/01/23 11/07/23 Esha Grimm PA-C [address] [place] [phone] Assigned PCP 07/16/23 Valery Veronica PA-C [address] [place] [address] [phone] Physician Government Auditor Dermatology 09/19/23 Rey Tay MD [address] [place] [address] 186065 Gastroenterology 09/20/23 Rocky Zepeda DO [address] [place] [address] Physician Gastroenterology 09/20/23 Philip Dumont MD [address] [place] [address] Physician Ophthalmology 09/22/23 Meredith Carrera PA-C [address] [place] [address] Assigned Gastroenterology Provider 11/01/23 Neil Kent MD [address] [address] MD Dermatology 11/02/23 [place] [address] [place] [facility] [place] [place] [address] Neurological Surgery 12/26/23 Audrey Waite PA-C [address] [place] [address] Physician Government Auditor Dermatology 02/28/24 Valery Veronica PA-C [id number] [address] [place] [address] Physician Government Auditor Dermatology 04/10/24 Herminia Hatch MD [facility]5 [place], [place] [phone] Assigned Rheumatology Provider 07/02/24 [place] [address] [place] [address] [place] [address] Ophthalmology 08/30/24 [place] [address] [place] [facility] [address] [place] [address] Assigned Neuroscience Provider 09/30/24 Maru Man PA-C [address] [place] [address] Physician Government Auditor Dermatology 10/03/24 Maru Man PA-C [address] [place] [address] [phone] Physician Government Auditor Dermatology 10/22/24 [place]ena David OD [address] [place] [address] Assigned Surgical Provider 10/31/24 Fabiano Correa, SPARK PLUG TESTER [address] [place] [address] Assigned Heart and Vascular Provider 11/30/24 Walter Nowak MD [address] [place] [address] Physician Clinical Cardiac Electrophysiology 03/01/25 Liset Márquez MD [address] [facility] [address] [place] [address] family sociologist 03/13/25 Luaren Coronado, [facility] 9 [place], [place] [phone] Pharmacist Pharmacist 04/15/25 documented as of this encounter
--- OUTSIDE RECORDS SUMMARY | 2025-04-26 23:53 | XMS_ITS | Encounter Summary ---
Author Organization [facility] Address [address] [place] [address] 20908 Care Team Providers Care Camera Repair Technician Name Role Phone Lita Oseguera Unavailable Unavailable Marija Edgar APRN TECHNICAL SALES ENGINEER Primary Care Provider + Chanelle Mccann APRN CNM Unavailab le Kyara De La Fuente RN Unavailable [phone] Marija Edgar APRN TECHNICAL SALES ENGINEER Unavailable Mynor Broussard MD Unavailable [phone] Keisha Dotson MD Unavailable [phone] Stacey Briones MANAGER SUPPLY CHAIN PLANNING Unavailable Lesley Guillermo CH Unavailable Mary Mejia Unavailable Unavailable Lita Oseguera Unavailable Unavailable Galo Burrell MD Unavailable Unavailable Cristina Wood Unavailable Lesley Guillermo CHW Unavailable Meredith Bedoya Unavailable Unavailable Cristina Wood Unavailable Diana Desir [facility] Unavailable [phone] Rain GalavizC Unavailable Summer Lara MD Unavailable [phone] Summer Lara MD Unavailable [phone] Summer Lara MD Unavailable [phone] Tavia Wyatt MD Unavailable [phone] Johnny Murillo MD Unavailable +[phone]- Eriac Farrell APRN TECHNICAL SALES ENGINEER Unavailable Vikas Teresitafazal Watson H Unavailable Tavia Wyatt MD Unavailable [phone] Diana Desir [facility] Unavailable [phone] Rich Barrett MD Unavailable Neil Kent MD Unavailable Roney StoryM Unavailable [phone] Erica Farrell APRN TECHNICAL SALES ENGINEER Unavailable Diana Desir [facility] Unavailable [phone] Jelena David OD Unavailable Galo Burrell MD Unavailable Unavailable Livan Sharif MD Unavailable + Livan Sharif MD Unavailable + Catherine Cm MD Unavailable + Valery Veronica PA-C Unavailable [phone] Catherine Cm MD Unavailable + Johnny Murillo MD Unavailable +[phone]- Brea Quinn APRN TECHNICAL SALES ENGINEER Unavailable [phone] Brea Quinn APRN TECHNICAL SALES ENGINEER Unavailable [phone] Jose Francisco Johnson MD Unavailable Livan Sharif MD Unavailable + Catherine Cm MD Unavailable + Sydnie Martinez RN Unavailable Unavailable Alfonso Renteria MD Unavailable [phone] Esha Grimm PA-C Primary Care Provider Perez [...] Márquez MD Unavailable Lauren Coronado [facility] Unavailable Encounter Details Date Type Department Care Team (Late st Contact Info) Description 09/02/2020 Alejandro Medical Advice [facility] Care Coordination [facility] [address] [place] [address] Mary Mejia Social History Tobacco Use Types [...] Legal Sex Female 4:13 AM ADULT EDUCATION INSTRUCTOR Gender Identity Female 03/02/2021 5:45 PM CDT Sexual Orientation Straight 02/28/2020 12 :51 AM CDT COVID-19 Exposure Response Date Recorded In the last month, have you been in contact with someone who was confirmed or suspected to have Coronavirus / COVID-19? No / Unsure 09/05/2020 2:50 PM ADULT EDUCATION INSTRUCTOR documented as of this encounter Plan of Treatment Upcoming Encounters Date Type Department Care Team (Late st Contact Info) Description 04/30/2025 10:30 AM CDT Office Visit [facility] [address], [address] [place] [address] Liset Márquez MD [address] [facility] [address] [place] [address] 05/30/2025 2:45 PM ADULT EDUCATION INSTRUCTOR Office Visit [address] [phone] Fabiano Correa NP 6405 [place], [place] 566245 Walter Nowak MD 6406 [place], [place] 758315 08/07/2025 8:15 AM ADULT EDUCATION INSTRUCTOR Office Visit [place] [address] [phone] Lucien Grimes MD [address] 998115 08/21/2025 9:00 AM ADULT EDUCATION INSTRUCTOR Office Visit [facility] [place] [address] [phone] Neil Kent MD [address] [place] [address] 10/09/2025 10:45 AM CDT Virtual Visit [facility] Gastroenterology Clinic [address] 4th [place] [phone] Meredith Carrera PA-C [address] [place] [address] 656285 documented as of this encounter Visit Diagnoses Not on filedocumented in this encounter Additional Health Concerns Infection Onset Date Last Indicated Resolved Time Rule Out COVID-19 09/24/2020 09/24/2020 09/24/2020 9:24 AM CDT Rule Out COVID-19 11/05/2020 11/05/2020 11/06/2020 1:09 PM CDT Rule Out COVID-19 05/11/2021 05/11/2021 05/13/2021 10:18 AM CDT Rule Out COVID-19 07/13/2021 07/13/2021 07/14/2021 3:04 PM ADULT EDUCATION INSTRUCTOR Rule Out COVID-19 07/18/2021 07/18/2021 07/20/2021 1:56 PM ADULT EDUCATION INSTRUCTOR COVID-19 07/18/2021 07/18/2021 08/08/2021 11:3 9 PM ADULT EDUCATION INSTRUCTOR Rule Out COVID-19 12/18/2021 12/18/2021 12/19/2021 11:34 AM CDT Rule Out COVID-19 02/24/2022 02/24/2022 02/25/2022 1:08 PM CDT Rule Out COVID-19 04/26/2022 04/26/2022 04/26/2022 6:47 AM CDT Rule Out COVID-19 05/17/2022 05/17/2022 05/17/2022 10:20 PM ADULT EDUCATION INSTRUCTOR Rule Out COVID-19 06/09/2022 06/09/2022 06/09/2022 9:35 AM ADULT EDUCATION INSTRUCTOR COVID-19 06/09/2022 06/09/2022 06/30/2022 11:4 1 PM ADULT EDUCATION INSTRUCTOR Rule Out COVID-19 11/10/2022 11/10/2022 11/11/2022 [...] Total Score: 9 06/25/20 20 7:04 AM ADULT EDUCATION INSTRUCTOR documented as of this encounter Care Teams Camera Repair Technician Relationship Specialty Start Date End Date Marija Edgar APRN TECHNICAL SALES ENGINEER PCP - General Nurse Practitioner 04/30/20 04/14/23 Esha Grimm PA-C [address] [place] [address] PCP - General Family Medicine 05/04/23 Lita Oseguera Personal Advocate & Liaison (PAL) 02/28/20 03/27/23 Chanelle Mccann APRN CNM [address] [place] [address] 89169 Assigned OBGYN Provider 05/02/2005/09 Kyara De La Fuente, RN Specialty Traffic Counter Neurology 06/04/20 03/05/21 Marija Edgar APRN TECHNICAL SALES ENGINEER Assigned PCP 06/08/20 04/29/23 Mynor Broussard MD [address] [place] [address] [phone] Assigned Surgical Provider 06/01/20 11/28/21 Keisha Dotson MD [address] [place] [address] Assigned Neuroscience Provider 06/04/20 04/01/23 Stacey Briones, [facility] Lead Traffic Counter Primary Care - CC 08/11/20 12/30/20 Lesley Guillermo, [facility] Community Health Worker 08/11/20 10/01/20 Mary Mejia Financial Resource Worker 09/02/20 10/06/20 Lita Oseguera Personal Advocate & Liaison (PAL) Family Medicine 09/10/20 09/21/20 Galo Burrell MD Assigned Heart and Vascular Provider 10/05/20 04/02/22 Cristina Wood Financial Resource Worker 10/07/20 10/14/20 Lesley Guillermo, [facility] Community Health Worker 10/23/20 12/30/20 Meredith Bedoya Financial Resource Worker 10/23/20 11/23/20 Cristina Wood Financial Resource Worker 02/09/21 02/09/21 Thang Diana T, [facility] [address] [place] [address] Pharmacist Pharmacist 04/17/21 Rain Galaviz PA-C [address] [place] [address] [address] [place] [place], [place] [phone] Physician Registered Sales Assistant Dermatology 04/28/21 Summer Lara MD [address] [place] [address] 565114 Assigned OBGYN Provider 05/10/2105/23 Summer Lara MD [address] [place] [address] 636194 Assigned OBGYN Provider 05/31/21 Summer Lara MD [address] [place] [address] [phone] Assigned OBGYN Provider 05/24/2105/30 Tavia Wyatt MD [address] [place] [address] 085134 Dermatology 07/14/21 Johnny Murillo MD [address] [place], [place] 588124 Assigned Musculoskeletal Provider 08/30/21 03/17/22 Erica Farrell APRN TECHNICAL SALES ENGINEER 6405 [facility] [address] [place], [place] 668245 Nurse Practitioner Cardiovascular Disease 09/09/21 Teresita Bean [facility] [address] [place] [phone] Pharmacist Pharmacist 09/24/21 09/29/21 Tavia Wyatt MD [address] [place] [address] Assigned Surgical Provider 11/29/21 05/07/22 Diana Desir, [facility] [place] [address] Assigned MTM Pharmacist 01/02/22 Rich Barrett MD [facility] [place] [address] Physician Ophthalmology 01/21/22 Neil Kent MD 500 [place], [place] 467405 Dermatology 02/24/22 Roney Story DPM [address]45[address] [facility] [address] [place], [place] 802107 Assigned Musculoskeletal Provider 03/20/22 08/13/22 Erica Farrell APRN TECHNICAL SALES ENGINEER 1700 [place] [address] Assigned Heart and Vascular Provider 04/03/22 04/16/22 Diana Desir, [facility] [place] [address] Assigned MTM Pharmacist 04/07/22 Jelena David OD 3305 [facility] [place] [address] Assigned Surgical Provider 05/08/22 10/08/22 Galo Burrell MD Assigned Heart and Vascular Provider 04/17/22 06/11/22 Livan Sharif MD [address] [place] [address] Cardiovascular Disease 05/14/22 Livan Sharif MD [address] [place] [address] Assigned Heart and Vascular Provider 06/12/22 07/23/22 Catherine Cm MD [address] [place] [address] Cardiovascular Disease 07/21/22 Valery Veronica, PA-C 909 [place] [address] Physician Registered Sales Assistant Dermatology 07/21/22 Catherine Cm MD [address] [place] [address] Assigned Heart and Vascular Provider 07/24/22 11/05/22 Johnny Murillo MD [address] [facility] [address] [place] [address] Assigned Musculoskeletal Provider 08/14/22 10/08/22 Brea Quinn APRN TECHNICAL SALES ENGINEER [address] [place] [address] Nurse Practitioner Dermatology 09/21/22 Brea Quinn APRN TECHNICAL SALES ENGINEER [address] [facility] [place] [address] Assigned Surgical Provider 10/09/22 05/01/24 [place] [address] [address] [facility] 300 [place] [address] Assigned Musculoskeletal Provider 10/09/22 05/01/24 Livan Sharif MD 6405 [facility] [address] [place] [address] Assigned Heart and Vascular Provider 11/06/22 11/12/22 Catherine Cm MD 6405 [facility] [address] [place] [address] Assigned Heart and Vascular Provider 11/13/22 05/27/23 Sydnie Martinez RN Personal Advocate & Liaison (PAL) Family Medicine 03/28/23 07/31/23 Alfonso Renteria MD 5775 [facility] 200 [place], [place] 656936 Assigned Neuroscience Provider 04/02/23 09/29/24 Cheng Todd PA-C [address] [place] [address] 16388 Assigned PCP 04/30/23 07/15/23 Radha Lomeli APRN TECHNICAL SALES ENGINEER [address] [place], [place] 616685 Assigned Heart and Vascular Provider 05/28/23 11/29/24 Jelena David OD [address] [facility] [place] [address] Ophthalmology 06/15/23 Pao Joseph, VJ Personal Advocate & Liaison (PAL) Nurse 08/01/23 11/07/23 Esha Grimm PA-C [address] [place] [phone] Assigned PCP 07/16/23 Valery Veronica PA-C [address] [place] [address] 181675 Physician Registered Sales Assistant Dermatology 09/19/23 Rey Tay MD [address] [place] [address] [phone] Gastroenterology 09/20/23 Rocky Zepeda DO [address] [place] [address] 383645 Physician Gastroenterology 09/20/23 Philip Dumont MD [address] [place] [address] 538285 Physician Ophthalmology 09/22/23 Meredith Carrera PA-C [address] [place] [address] [phone] Assigned Gastroenterology Provider 11/01/23 Neil Kent MD [address] [place] [address] Dermatology 11/02/23 [place] [address] [place] [address] 8[address]67 Neurological Surgery 12/26/23 Audrey Waite PA-C 500 [place] [address] Physician Registered Sales Assistant Dermatology 02/28/24 Valery Veronica PA-C [address] [place] [address] Physician Registered Sales Assistant Dermatology 04/10/24 Herminia Hatch MD [address] [place] [address] [phone] Assigned Rheumatology Provider 07/02/24 Jelena David OD [address] [place] [address] [place] [address] Ophthalmology 08/30/24 [place] [address] [place] [address] Assigned Neuroscience Provider 09/30/24 Maru Man PA-C [address] [place] [address] Physician Registered Sales Assistant Dermatology 10/03/24 Maru Man PA-C [address] [place] [address] Physician Registered Sales Assistant Dermatology 10/22/24 Jelena David OD [address] [facility] [place] [address] Assigned Surgical Provider 10/31/24 Fabiano Correa NP 6405 [facility] [place] [address] Assigned Heart and Vascular Provider 11/30/24 Walter Nowak MD [address]405 [place] 608415 Physician Clinical Cardiac Electrophysiology 03/01/25 Liset Márquez MD [address] [place] [address] 715[address] table tender sludge 03/13/25 Lauren Coronado, [facility] 9 [place] [address] Pharmacist Pharmacist 04/15/25 documented as of this encounter
--- OUTSIDE RECORDS SUMMARY | 2025-04-26 23:53 | XMS_ITS | Encounter Summary ---
Author Organization [facility] Address [address] [place] [address] Care Team Providers Care Roller Varnisher Name Role Phone Diana Desir Stanislav [facility] Unavailable Rain Galaviz PA-C Unavailable [phone] Tavia Wyatt MD Unavailable Erica Farrell APRN LITIGATION LEGAL ASSISTANT Unavailable Rich Barrett MD Unavailable [phone] Neil Kent MD Unavailable ThangKendrickDiana Stanislav [facility] Unavailable [phone] Livan Sharif MD Unavailable Catherine Cm MD Unavailable + Valery Veronica-C Unavailable Brea Quinn FOOD ASSEMBLER KITCHEN LITIGATION LEGAL ASSISTANT Unavailable [phone] Esha Grimm PA-C Primary Care Provider [phone] Radha Lomeli APRN LITIGATION LEGAL ASSISTANT Unavailable Jelena David OD Unavailable Esha Grimm PA-C Unavailable [phone] Valery Veronica PA-C Unavailable Rey Tay MD Unavailable Rocky Zepeda DO Unavailable Philip Dumont MD Unavailable PinoMeredith paez [...] Márquez MD Unavailable Lauren Coronado [facility] Unavailable [phone] Encounter Details Date Type Department Care Team (Late st Contact Info) Description 11/09/2024 MyC Medical Advice [facility] [address] 4th [place] [address] Apolinar Gresham Social History Tobacco [...] PHQ-2 Score 1 10/24/2024 [facility] of Occupat [...] exercise at this level? 20 min 05/07/2024 Harvey Depression Scale Answer Date Recorded Harvey Depression Score 5 01/14/2021 Last EPDS Self [...] CDT Legal Sex Female 4:13 AM SPECIALIZED DEVELOPER Gender Identity Female 03/02/2021 5:45 PM CDT Sexual Orientation Straight 02/28/2020 12 :51 AM CDT documented as of this encounter Plan of Treatment Upcoming Encounters Date Type Department Care Team (Late st Contact Info) Description 04/30/2025 10:30 AM CDT Office Visit [facility] [address], [address] [place] [address] Liset Márquez MD [address] [place] [address] 05/30/2025 2:45 PM SPECIALIZED DEVELOPER Office Visit [facility] [address] [place] [phone] [place] [phone] Fabiano Correa NP 6405 [place], [place] 001835 Walter Nowak MD 6408 [place], [place] 697435 08/07/2025 8:15 AM SPECIALIZED DEVELOPER Office Visit [facility] [address] [place] [phone] Lucien Grimes MD [address] [phone] 08/21/2025 9:00 AM SPECIALIZED DEVELOPER Office Visit [facility] [address] [phone] Neil Kent MD [address] [place] [address] 706775 10/09/2025 10:45 AM CDT Virtual Visit [facility] [address]th [place] [phone] Meredith Carrera PA-C [address] [place] [address] 940535 documented as of this encounter Visit Diagnoses [...] as of this encounter Care Teams Roller Varnisher Relationship Specialty Start Date End Date Esha Grimm PA-C [address] [place] [address]383 PCP - General Family Medicine 05/04/23 Diana Desir, [facility] [address] [place] [address] Pharmacist Pharmacist 04/17/21 Rain Galaviz PA-C [address] [place] [address] [address] [facility] [facility] [place] [address] Physician Director Of Enterprise Architecture Dermatology 04/28/21 Tavia Wyatt MD [address] [place] [address] DR [address] [facility] [place] [address] Dermatology 07/14/21 Erica Farrell APRN LITIGATION LEGAL ASSISTANT [address] [place] [address] Nurse Practitioner Cardiovascular Disease 09/09/21 Rich Barrett MD [address] [place] 014575 Physician Ophthalmology 01/21/22 Neil Kent MD 500 [place], [place] 368635 Dermatology 02/24/22 Diana Desir, [facility] [address] [place] [address] Assigned MTM Pharmacist 04/07/22 Livan Sharif MD [address] [address] [place] [address]95 Cardiovascular Disease 05/14/22 Catherine Cm MD [address] [place] 252125 Cardiovascular Disease 07/21/22 Valery Veronica, PA-C 909 [place], [place] 783935 Physician Director Of Enterprise Architecture Dermatology 07/21/22 Brea Quinn APRN LITIGATION LEGAL ASSISTANT 500 [place], [place] 151875 Nurse Practitioner Dermatology 09/21/22 Radha Lomeli, [place] LITIGATION LEGAL ASSISTANT [address] [place], [place] 175705 Assigned Heart and Vascular Provider 05/28/23 11/29/24 Jelena David OD 3305 [facility] [place] [address] Ophthalmology 06/15/23 Esha Grimm PA-C [address] [place] [address]-795483 Assigned PCP 07/16/23 Valery Veronica PA-C [address] [place] [address] Physician Director Of Enterprise Architecture Dermatology 09/19/23 Rey Tay MD [address] [place] [address] MD Gastroenterology 09/20/23 Rocky Zepeda DO [address] [place] [address] Physician Gastroenterology 09/20/23 Philip Dumont MD [address] [place] [address] Physician Ophthalmology 09/22/23 Meredith Carrera PA-C [address] [place] [address] Assigned Gastroenterology Provider 11/01/23 Neil Kent MD [address] [address] Dermatology 11/02/23 [place] [address] [place] [address] [address] Neurological Surgery 12/26/23 Audrey Waite PA-C [address] [place] [address]85 Physician Director Of Enterprise Architecture Dermatology 02/28/24 Valery Veronica PA-C 176798 [address] [place] [address] Physician Director Of Enterprise Architecture Dermatology 04/10/24 Herminia Hatch MD [address] [place] [address] [phone] Assigned Rheumatology Provider 07/02/24 Jelena David OD [address] [place] [address] [place] [address] Ophthalmology 08/30/24 [place] [address] [place] [address] [place] 977[address] Assigned Neuroscience Provider 09/30/24 Maru Man PA-C [address] [place] [address] 315850 Physician Director Of Enterprise Architecture Dermatology 10/03/24 Maru Man PA-C [address] [place] [address] Physician Director Of Enterprise Architecture Dermatology 10/22/24 Jelena David OD [address] [place] [address] [place] [address] Assigned Surgical Provider 10/31/24 Fabiano Correa NP [address]405 [place] 590615 Assigned Heart and Vascular Provider 11/30/24 Walter Nowak MD [address]405 [place] 308805 Physician Clinical Cardiac Electrophysiology 03/01/25 Liset Márquez MD [address] [facility] 300 [place], [place] 783004 family resource coordinator 03/13/25 Lauren Coronado [facility] [address] [place] [address] Pharmacist Pharmacist 04/15/25 documented as of this encounter
--- OUTSIDE RECORDS SUMMARY | 2025-04-26 23:53 | XMS_ITS | Encounter Summary ---
Author Organization [facility] Address [address] [place] [address]70 Care Team Providers Care Loom Blower Name Role Phone Lita Oseguera Unavailable Unavailable Marija Edgar APRN CUSTOMER SERVICES MANAGER Primary Care Provider + Chanelle Mccann APRN CNM Unavailab le Kyara De La Fuente RN Unavailable [phone] Marija Edgar APRN CUSTOMER SERVICES MANAGER Unavailable [phone] Mynor Broussard MD Unavailable [phone] Keisha Dotson MD Unavailable [phone] Stacey Briones RESOURCE COORDINATOR Unavailable [phone] Lesley Guillermo CH Unavailable Mary Mejia Unavailable Unavailable Lita Oseguera Unavailable Unavailable Galo Burrell MD Unavailable Unavailable Cristina Wood Unavailable Lesley Guillermo CHW Unavailable Meredith Bedoya Unavailable Unavailable Cristina Wood Unavailable Diana Desir [facility] Unavailable [phone] Rain GalavizC Unavailable [phone] Summer Lara MD Unavailable [phone] Summer Lara MD Unavailable [phone] Summer Lara MD Unavailable [phone] Tavia Wyatt MD Unavailable [phone] Johnny Murillo MD Unavailable +[phone]- Erica Farrell APRN CUSTOMER SERVICES MANAGER Unavailable Vikas Teresitafazal Watson H Unavailable Tavia Wyatt MD Unavailable [phone] Diana Desir [facility] Unavailable [phone] Rich Barrett MD Unavailable Neil Kent MD Unavailable Roney StoryM Unavailable [phone] Erica Farrell APRN CUSTOMER SERVICES MANAGER Unavailable Diana Desir [facility] Unavailable [phone] Jelena David OD Unavailable [phone] Galo Burrell MD Unavailable Unavailable Livan Sharif MD Unavailable + Livan Sharif MD Unavailable + Catherine Cm MD Unavailable + Valery Veronica PA-C Unavailable [phone] Catherine Cm MD Unavailable + Johnny Murillo MD Unavailable +[phone]- Brea Quinn APRN CUSTOMER SERVICES MANAGER Unavailable [phone] Brea Quinn APRN CUSTOMER SERVICES MANAGER Unavailable [phone] Jose Francisco Johnson MD Unavailable Livan Sharif MD Unavailable + Catherine Cm MD Unavailable + Sydnie Martinez RN Unavailable Unavailable Alfonso Renteria MD Unavailable [phone] Esha Grimm PA-C Primary Care Provider Perez Chengjc Fish PA-C Unavailable Armani Radha Stovall ARLENE GRANADOS Unavailable Jelena David OD Unavailable Pao Joseph RN Unavailable Unavailable Esha Grimm PA-C Unavailable [phone] Valery Veronica PA-C Unavailable Rey Tay [...] Márquez MD Unavailable Lauren Coronado [facility] Unavailable [phone] Reason for Visit * Reason Onset Date Comments MyChart Communication 09/08/2020 Encounter Details Date Type Department Care Team (Latest Contact Info) Description 09/08/2020 [facility] [address] [address] Marija Edgar, ARLENE CUSTOMER SERVICES MANAGER [address] [place] [address] MyChart Communication Social History Tobacco Use [...] Answer Date Recorded PHQ-2 Score 0 08/12/2020 [facility] [place] of Occupat ional Health - Occupational Stress [...] PM CDT Legal Sex Female 4:13 AM COOK VEGETABLE Gender Identity Female 03/02/2021 5:45 PM CDT Sexual Orientation Straight 02/28/2020 12 :51 AM CDT COVID-19 Exposure Response Date Recorded In the last month, have you been in contact with someone who was confirmed or suspected to have Coronavirus / COVID-19? No / Unsure 09/09/2020 10:09 AM COOK VEGETABLE documented as of this encounter Miscellaneous Notes [...] RN, BSN Message handled by CLINIC NURSE.' VEGETABLE * Telephone Encounter - Ever Cardozo MA - 09/09/2020 7:08 AM CST Triage, could you please see if results are posted yet in regards to patients ultrasound. Ever Cardozo CMA ([facility]) VEGETABLE documented in this encounter Plan of Treatment Upcoming Encounters Date Type Department Care Team (Late st Contact Info) Description 04/30/2025 10:30 AM CDT Office Visit [facility] [address], [address] [place] [phone] Lsiet Márquez MD [address] [facility] 300 [place] [address] 05/30/2025 2:45 PM COOK VEGETABLE Office Visit [facility] 6405 [facility] [address] [place] [address] [phone] Fabiano Correa, FINANCIAL MANAGER 9695 [place], [place] 376225 Walter Nowak MD [address]13 [place] [address] 08/07/2025 8:15 AM COOK VEGETABLE Office Visit [facility] Heart [facility] [address] [address] Lucien Grimes MD [address] 0294[address] 08/21/2025 9:00 AM COOK VEGETABLE Office Visit [facility] [address] [phone] Neil Kent MD 500 [place], [place] 1874[address] 10/09/2025 10:45 AM CDT Virtual Visit [facility] [place] 909 [facility] 4th [place] [phone] Meredith Carrera PA-Romana [address] [place] [address] 708005 documented as of this encounter Visit Diagnoses Not on filedocumented in this encounter Additional Health Concerns Infection Onset Date Last Indicated Resolved Time Rule Out COVID-19 09/24/2020 09/24/2020 09/24/2020 9:24 AM CDT Rule Out COVID-19 11/05/2020 11/05/2020 11/06/2020 1:09 PM CDT Rule Out COVID-19 05/11/2021 05/11/2021 05/13/2021 10:18 AM CDT Rule Out COVID-19 07/13/2021 07/13/2021 07/14/2021 3:04 PM COOK VEGETABLE Rule Out COVID-19 07/18/2021 07/18/2021 07/20/2021 1:56 PM COOK VEGETABLE COVID-19 07/18/2021 07/18/2021 08/08/2021 11:3 9 PM COOK VEGETABLE Rule Out COVID-19 12/18/2021 12/18/2021 12/19/2021 11:34 AM CDT Rule Out COVID-19 02/24/2022 02/24/2022 02/25/2022 1:08 PM CDT Rule Out COVID-19 04/26/2022 04/26/2022 04/26/2022 6:47 AM CDT Rule Out COVID-19 05/17/2022 05/17/2022 05/17/2022 10:20 PM COOK VEGETABLE Rule Out COVID-19 06/09/2022 06/09/2022 06/09/2022 9:35 AM COOK VEGETABLE COVID-19 06/09/2022 06/09/2022 06/30/2022 11:4 1 PM COOK VEGETABLE Rule Out COVID-19 11/10/2022 11/10/2022 11/11/2022 12:17 [...] Depression Total Score: 9 06/25/20 7:04 AM COOK VEGETABLE documented as of this encounter Care Teams Loom Blower Relationship Specialty Start Date End Date Marija Edgar APRN CUSTOMER SERVICES MANAGER PCP - General Nurse Practitioner 04/30/20 04/14/23 Esha Grimm PA-C [address] [place] [phone] PCP - General Family Medicine 05/04/23 Lita Oseguera Personal Advocate & Liaison (PAL) 02/28/20 03/27/23 Chanelle Mccann APRN CNM [address] [facility] 200 [place], [place] 082047 Assigned OBGYN Provider 05/02/2005/09 Kyara De La Fuente, RN Specialty Early Childhood Education Specialist Neurology 06/04/20 03/05/21 Marija Edgar APRN CUSTOMER SERVICES MANAGER Assigned PCP 06/08/20 04/29/23 Mynor Broussard MD 909 [place], [place] 225615 Assigned Surgical Provider 06/01/20 11/28/21 Keisha Dotson MD 909 [place] [address] Assigned Neuroscience Provider 06/04/20 04/01/23 Stacey Briones, [facility] Lead Early Childhood Education Specialist Primary Care - CC 08/11/20 12/30/20 Lesley Guillermo, [facility] Community Health Worker 08/11/20 10/01/20 Mary Mejia Financial Resource Worker 09/02/20 10/06/20 Lita Oseguera Personal Advocate & Liaison (PAL) Family Medicine 09/10/20 09/21/20 Galo Burrell MD Assigned Heart and Vascular Provider 10/05/20 04/02/22 Cristina Wood Financial Resource Worker 10/07/20 10/14/20 Lesley Guillermo, [facility] Community Health Worker 10/23/20 12/30/20 Meredith Bedoya Financial Resource Worker 10/23/20 11/23/20 Cristina Wood Financial Resource Worker 02/09/21 02/09/21 Diana Desir, [facility] 3033 [place], [place] 129906 Pharmacist Pharmacist 04/17/21 Rain Galaviz PA-C [address] [place] [address] [address] [place], [place] [phone] Physician Shovel Handle Assembler Dermatology 04/28/21 Summer Lara MD [address] [place] [address] Assigned OBGYN Provider 05/10/2105/23 Summer Lara MD [address] [place] [address] [place] [address] Assigned OBGYN Provider 05/31/21 2 Summer Lara MD [address] [place] [address] Assigned OBGYN Provider 05/24/2105/30 Tavia Wyatt MD [address] [place] [address] Dermatology 07/14/21 Johnny Murillo MD [facility] S [facility] [facility] [address] [place] [address] Assigned Musculoskeletal Provider 08/30/21 03/17/22 Erica Farrell APRN [facility] 6405 [facility] [address] [place] [address] Nurse Practitioner Cardiovascular Disease 09/09/21 Teresita Bean [facility] [address] [place] [address] Pharmacist Pharmacist 09/24/21 09/29/21 Tavia Wyatt MD [address] [place] [address] Assigned Surgical Provider 11/29/21 05/07/22 [facility] 3033 [place] [address] Assigned MTM Pharmacist 01/02/22 Rich Barrett MD 3033 [place] [address] Physician Ophthalmology 01/21/22 Neil Kent MD 500 [place] [address] Dermatology 02/24/22 Roney Story DPM 38037 [facility] [address] [place] [address] Assigned Musculoskeletal Provider 03/20/22 08/13/22 Erica Farrell APRN CUSTOMER SERVICES MANAGER 1700 [place] [address] Assigned Heart and Vascular Provider 04/03/22 04/16/22 Diana Desir, [facility] [address] [place] [address] Assigned MTM Pharmacist 04/07/22 [place] David OD 3305 [facility] [place] [address] Assigned Surgical Provider 05/08/22 10/08/22 Galo Burrell MD Assigned Heart and Vascular Provider 04/17/22 06/11/22 Livan Sharif MD 6405 [facility] [address] [place] 515725 Cardiovascular Disease 05/14/22 Livan Sharif MD [address] [address] [phone] [place] [address] Assigned Heart and Vascular Provider 06/12/22 07/23/22 Catherine Cm MD [address] [address] [place] 937965 Cardiovascular Disease 07/21/22 Valery Veronica, PA-C [address] [place] [address] 645285 Physician Shovel Handle Assembler Dermatology 07/21/22 Catherine Cm MD [address] [address] [place] 276905 Assigned Heart and Vascular Provider 07/24/22 11/05/22 Johnny Murillo MD [address] [place] [address] 804884 Assigned Musculoskeletal Provider 08/14/22 10/08/22 Brea Quinn APRN CUSTOMER SERVICES MANAGER [address] [place] [address] 434935 Nurse Practitioner Dermatology 09/21/22 Brea Quinn APRN CUSTOMER SERVICES MANAGER [address] [place] [address] [place] 200242 Assigned Surgical Provider 10/09/22 05/01/24 [place] [address] RA[address] [place] [address] [phone] Assigned Musculoskeletal Provider 10/09/22 05/01/24 Livan Sharif MD [address] [facility] [address] [place] [address] Assigned Heart and Vascular Provider 11/06/22 11/12/22 Catherine Cm MD [address] [place] [address] [place] [address] Assigned Heart and Vascular Provider 11/13/22 05/27/23 Sydnie Martinez RN Personal Advocate & Liaison (PAL) Family Medicine 03/28/23 07/31/23 Alfonso Renteria MD 5775 [facility] 200 [place] [address] Assigned Neuroscience Provider 04/02/23 09/29/24 Cheng Todd PA-C [address] [place] [address] [phone] Assigned PCP 04/30/23 07/15/23 Radha Lomeli APRN CUSTOMER SERVICES MANAGER [address] [place] [address] Assigned Heart and Vascular Provider 05/28/23 11/29/24 Jelena David OD 3305 [facility] [place] [address] Ophthalmology 06/15/23 Pao Joseph RN Personal Advocate & Liaison (PAL) Nurse 08/01/23 11/07/23 Esha Grimm PA-C [address] [place] [address]-015783 Assigned PCP 07/16/23 Valery Veronica PA-C [address] [place] [address] Physician Shovel Handle Assembler Dermatology 09/19/23 Rey Tay MD [address] [place] [address] MD Gastroenterology 09/20/23 Rocky Zepeda DO [address] [place] [address] 116[address] Physician Gastroenterology 09/20/23 Philip Dumont MD [address] [place] [address] Physician Ophthalmology 09/22/23 Meredith Carrera PA-C [address] [place] [address] 197[address] Assigned Gastroenterology Provider 11/01/23 Neil Kent MD [address] [place] [address] 735060 Dermatology 11/02/23 [place] [address] [place] 890307 Neurological Surgery 12/26/23 Audrey Waite PA-C [address] [place] [address] 325045 Physician Shovel Handle Assembler Dermatology 02/28/24 Valery Veronica PA-C [address] [place] [address] Physician Shovel Handle Assembler Dermatology 04/10/24 Herminia Hatch MD [address] [place] [address] [phone] Assigned Rheumatology Provider 07/02/24 Jelena David, SONJA [address] [place] [address] [place] [address] Ophthalmology 08/30/24 [place] [address] [place] [address] Assigned Neuroscience Provider 09/30/24 Maru Man PA-C [address] [place] [address] Physician Shovel Handle Assembler Dermatology 10/03/24 Maru Man PA-C [address] [place] [address] Physician Shovel Handle Assembler Dermatology 10/22/24 Jelena David, SONJA [address] [place] [address] [place] [address] Assigned Surgical Provider 10/31/24 Fabiano Correa FINANCIAL MANAGER 6405 [place] [address] Assigned Heart and Vascular Provider 11/30/24 Walter Nowak MD 6405 [place] [address] Physician Clinical Cardiac Electrophysiology 03/01/25 Liset Márquez MD [address] [address] auto dealer 03/13/25 Lauren Coronado, [facility] [address] [place] [address] 224175 Pharmacist Pharmacist 04/15/25 documented as of this encounter
--- OUTSIDE RECORDS SUMMARY | 2025-04-26 23:53 | XMS_ITS | Encounter Summary ---
Author Organization [facility] Address [address] [place] [address] Care Team Providers Care Yoke Setter Name Role Phone Lita Oseguera Unavailable Unavailable Marija Edgar APRN DENTURE MODEL MAKER Primary Care Provider + Marija Edgar APRN DENTURE MODEL MAKER Unavailable [phone] Keisha Dotson MD Unavailable Diana Desir [facility] Unavailable Rain Galaviz PA-C Unavailable Tavia Wyatt MD Unavailable rEica Farrell APRN [facility] Unavailable Tavia Wyatt MD Unavailable [phone] Rich Barrett MD Unavailable [phone] Neil Kent MD Unavailable Roney Story DPM Unavailable Erica Farrell APRN DENTURE MODEL MAKER Unavailable Diana Desir [facility] Unavailable Jelena David OD Unavailable [phone] Galo Burrell MD Unavailable Unavailable Livan Sharif MD Unavailable Livan Sharif MD Unavailable IsraynaCatherine boothe MD Unavailable + Valery Veronica PA-C Unavailable [phone] IsCatherine hobbs MD Unavailable + Johnny Murillo MD Unavailable [phone] Brea Quinn ASSISTANT ACCOUNT MANAGER DENTURE MODEL MAKER Unavailable [phone] Brea Quinn ASSISTANT ACCOUNT MANAGER DENTURE MODEL MAKER Unavailable [phone] Jose Francisco Johnson MD Unavailable Livan Sharif MD Unavailable Isfaby, Catherine Marques MD Unavailable + Sydnie Martinez RN Unavailable Unavailable Alfonso Renteria MD Unavailable [phone] Esha Grimm PA-C Primary Care Provider Cheng Todd PA-C Unavailable Radha Lomeli ASSISTANT ACCOUNT MANAGER DENTURE MODEL MAKER Unavailable [phone] Jelena David SONJA Unavailable Pao Joseph RN Unavailable Unavailable Esha Grimm PA-C Unavailable [phone] Valery Veronica PA-C Unavailable [phone] Rey Tay MD Unavailable Rocky Zepeda DO Unavailable Philip Dumont MD Unavailable [phone] Meredith Carrera PA-C Unavailable [phone] Neil Kent MD Unavailable Juan Pablo Emmanuel MD Unavailable Audrey Waite PA-C Unavailable Valery Veronica PA-C Unavailable [phone] Herminia Hatch MD Unavailable Jelena David OD Unavailable Juan Pablo Emmanuel MD Unavailable Maru Man PA-C Unavailable [phone] Maru Man PA-C Unavailable [phone] Jelena David OD Unavailable Fabiano Correa NP Unavailable [phone] Walter Nowak MD Unavailable Liset Márquez MD Unavailable Lauren Coronado [facility] Unavailable Encounter Details Date Type Department Care Team (Late st Contact Info) Description 04/07/2022 [facility] [address] [address] Diana Desir, [facility] 3039 [place] [address] Social History Tobacco Use Types Packs/Day Years [...] How often do you attend sikh or congregational serv ices? Never 09/22/2021 Do [...] in a mcfp (including now)? No 09/22/2021 [place] Depression Scale [...] CDT Legal Sex Female 4:13 AM CELLOPHANE PRESS OPERATOR Gender Identity Female 03/02/2021 5:45 [...] 04/30/2025 10:30 AM CDT Office Visit [facility] [address], [address] [place] [phone] Liset Márquez MD [address] [address] 05/30/2025 2:45 PM CELLOPHANE PRESS OPERATOR Office Visit [facility] [address] [phone] [place] [phone] Fabiano Correa NP [address] [place] [place] [address] Walter Nowak MD 6408 [facility] [place] 06[address] 08/07/2025 8:15 AM CELLOPHANE PRESS OPERATOR Office Visit [facility] 6405 [address] [place] [phone] Lucien Grimes MD [address] 644615 08/21/2025 9:00 AM CELLOPHANE PRESS OPERATOR Office Visit [facility] [address] [phone] Neil Kent MD [address] [place] [address] [phone] 10/09/2025 10:45 AM CDT Virtual Visit [facility] [place] [address] [place] [address] 4th [place] [phone] Meredith Carrera PA-C [address] [place] [address] 599405 documented as of this encounter Visit Diagnoses Not on filedocumented in this encounter Additional Health Concerns Infection Onset Date Last Indicated Resolved Time Rule Out COVID-19 04/26/2022 04/26/2022 04/26/2022 6:47 AM CDT Rule Out COVID-19 05/17/2022 05/17/2022 05/17/2022 10:20 PM CELLOPHANE PRESS OPERATOR Rule Out COVID-19 06/09/2022 06/09/2022 06/09/2022 9:35 AM CELLOPHANE PRESS OPERATOR COVID-19 06/09/2022 06/09/2022 06/30/2022 11:4 1 PM CELLOPHANE PRESS OPERATOR Rule Out COVID-19 11/10/2022 11/10/2022 11/11/2022 [...] documented as of this encounter Care Teams Yoke Setter Relationship Specialty Start Date End Date Marija Edgar APRN DENTURE MODEL MAKER PCP - General Nurse Practitioner 04/30/20 04/14/23 Esha Grimm PA-C [address] [place] [phone] PCP - General Family Medicine 05/04/23 Lita Oseguera Personal Advocate & Liaison (PAL) 02/28/20 03/27/23 Marija Edgar APRN DENTURE MODEL MAKER Assigned PCP 06/08/20 04/29/23 Keisha Dotson MD [address] [place] [address] Assigned Neuroscience Provider 06/04/20 04/01/23 [facility] [address] [place] [address] Pharmacist Pharmacist 04/17/21 Rain Galaviz PA-C [address] [place] [address] [address] [place] [address] Physician Distribution Clerk Dermatology 04/28/21 Tavia Wyatt MD [address] [place] [address] [place] [address] Dermatology 07/14/21 Erica Farrell APRN DENTURE MODEL MAKER [address] 1365400 [place] [address] Nurse Practitioner Cardiovascular Disease 09/09/21 Tavia Wyatt MD 101 [place] [address] Assigned Surgical Provider 11/29/21 05/07/22 Rich Barrett MD 101 [place] [address] Physician Ophthalmology 01/21/22 Neil Kent MD 500 [place] [address] Dermatology 02/24/22 Roney Story DPM [address] [facility] [address] [place] [address] Assigned Musculoskeletal Provider 03/20/22 08/13/22 Erica Farrell APRN DENTURE MODEL MAKER 1700 [place] [address] Assigned Heart and Vascular Provider 04/03/22 04/16/22 [facility] 3033 [place] [address] Assigned MTM Pharmacist 04/07/22 Jelena David OD [address] [place] [address] Assigned Surgical Provider 05/08/22 10/08/22 Galo Burrell MD Assigned Heart and Vascular Provider 04/17/22 06/11/22 Livan Sharif MD [address] [address] [place] [address] Cardiovascular Disease 05/14/22 Livan Sharif MD [address] [place] [address] [place] [address] Assigned Heart and Vascular Provider 06/12/22 07/23/22 Catherine Cm MD [address] [place] [address] [place] 877045 Cardiovascular Disease 07/21/22 Valery Veronica, PALOMAC 909 [place] [address] Physician Distribution Clerk Dermatology 07/21/22 Catherine Cm MD [address] [facility] [address] [place] [address] Assigned Heart and Vascular Provider 07/24/22 11/05/22 Johnny Murillo MD [address] [place] [address] Assigned Musculoskeletal Provider 08/14/22 10/08/22 Brea Quinn APRN DENTURE MODEL MAKER [address] [place] [address] 855555 Nurse Practitioner Dermatology 09/21/22 Brea Quinn APRN DENTURE MODEL MAKER [address] [place] [address] [place] [address] Assigned Surgical Provider 10/09/22 05/01/24 [place] [address] [address] Assigned Musculoskeletal Provider 10/09/22 05/01/24 Livan Sharif MD [address] [place] 257805 Assigned Heart and Vascular Provider 11/06/22 11/12/22 Catherine Cm MD [address] [address] [place] [address] Assigned Heart and Vascular Provider 11/13/22 05/27/23 Sydnie Martinez, VJ Personal Advocate & Liaison (PAL) Family Medicine 03/28/23 07/31/23 Alfonso Renteria MD [address] [facility] [address] [place] [address] Assigned Neuroscience Provider 04/02/23 09/29/24 Cheng Todd PA-C [address] [place] [address] [phone] Assigned PCP 04/30/23 07/15/23 Radha Lomeli APRN DENTURE MODEL MAKER [address] 1365400 [place] [address] Assigned Heart and Vascular Provider 05/28/23 11/29/24 Jelena David OD [address] [place] [address] Ophthalmology 06/15/23 Pao Joseph RN Personal Advocate & Liaison (PAL) Nurse 08/01/23 11/07/23 Esha Grimm PA-C [address] [place] [phone] Assigned PCP 07/16/23 Valery Veronica PA-C [address] [place] [address] 593825 Physician Distribution Clerk Dermatology 09/19/23 Rey Tay MD [address] [place] [address] 544205 MD Gastroenterology 09/20/23 Rocky Zepeda DO [address] [place] [address] 483035 Physician Gastroenterology 09/20/23 Philip Dumont MD [address] [place] [address] 430705 Physician Ophthalmology 09/22/23 Meredith Carrera PA-C [address] [place] [address] 644185 Assigned Gastroenterology Provider 11/01/23 Neil Kent MD [address] [place] [address] 829370 MD Dermatology 11/02/23 [place] [address] 533757 Neurological Surgery 12/26/23 Audrey Waite PA-C 500 [place] [address] Physician Distribution Clerk Dermatology 02/28/24 Valery Veronica PA-C 304628 [place], [place] [address] Physician Distribution Clerk Dermatology 04/10/24 Herminia Hatch MD [address] [place] [address] Assigned Rheumatology Provider 07/02/24 Jelena David OD [address] [place] [address] Ophthalmology 08/30/24 [place] [address] [address] [facility] 300 [place] [address] Assigned Neuroscience Provider 09/30/24 Maru Man PA-C [address] [place] [address] Physician Distribution Clerk Dermatology 10/03/24 Maru Man PA-C [address] [place] [address] Physician Distribution Clerk Dermatology 10/22/24 Jelena David, SONJA [address] [facility] [place] [address] Assigned Surgical Provider 10/31/24 Fabiano Correa, TOUR DRIVER [address] [place] [address] Assigned Heart and Vascular Provider 11/30/24 Walter Nowak MD [address] [place] [address] Physician Clinical Cardiac Electrophysiology 03/01/25 Liset Márquez MD [address] [facility] 300 [place] [address] vehicle maintenance technician 03/13/25 Lauren Coronado, [facility] [address] [place] [address] Pharmacist Pharmacist 04/15/25 documented as of this encounter
--- OUTSIDE RECORDS SUMMARY | 2025-04-26 23:54 | XMS_ITS | Encounter Summary ---
Author Organization [place] Address [address] [place] [address] Care Team Providers Care Architectural Engineer Name Role Phone Lita Oseguera Unavailable Unavailable Marija Edgar APRN COMMUNITY DEVELOPMENT MANAGER Primary Care Provider + Chanelle Mccann APRN CNM Unavailab le Kyara De La Fuente RN Unavailable [phone] Marija Edgar APRN COMMUNITY DEVELOPMENT MANAGER Unavailable [phone] Mynor Broussard MD Unavailable [phone] Keisha Dotson MD Unavailable Mary Mejia Unavailable Unavailable Stacey Briones FIFTH GRADE TEACHER Unavailable Lesley Guillermo CHW Unavailable Mary Mejia Unavailable Unavailable Lita Oseguera Unavailable Unavailable Galo Burrell MD Unavailable Unavailable Cristina Wood Unavailable Lesley Guillermo CHW Unavailable Meredith Bedoya Unavailable Unavailable Cristina Wood Unavailable Diana Desir [facility] Unavailable Rain Galaviz PA-C Unavailable Summer Lara MD Unavailable [phone] Summer Lara MD Unavailable [phone] Summer Lara MD Unavailable [phone] Tavia Wyatt MD Unavailable [phone] Johnny Murillo MD Unavailable [phone] Erica Farrell APRN COMMUNITY DEVELOPMENT MANAGER Unavailable VikasTeresita [facility] Unavailable Tavia Wyatt MD Unavailable [phone] Diana Desir [facility] Unavailable [phone] Rich Barrett MD Unavailable [phone] Neil Kent MD Unavailable Roney Story [facility] Unavailable Erica Farrell APRN COMMUNITY DEVELOPMENT MANAGER Unavailable Diana Desir [facility] Unavailable [phone] Jelena David OD Unavailable [phone] Galo Burrell MD Unavailable Unavailable Livan Sharif MD Unavailable Livan Sharif MD Unavailable Catherine Cm MD Unavailable + Valery Veronica PA-C Unavailable [phone] Catherine Cm MD Unavailable + Johnny Murillo MD Unavailable [phone] Brea Quinn APRN COMMUNITY DEVELOPMENT MANAGER Unavailable [phone] Brea Quinn APRN COMMUNITY DEVELOPMENT MANAGER Unavailable [phone] Jose Francisco Johnson MD Unavailable Livan Sharif MD Unavailable Catherine Cm MD Unavailable + Sydnie Martinez RN Unavailable Unavailable Alfonso Renteria MD Unavailable [phone] Esha Grimm PA-C Primary Care Provider Cheng Todd PA-C Unavailable Radha Lomeli APRN COMMUNITY DEVELOPMENT MANAGER Unavailable Jelena David OD Unavailable Pao Joseph RN Unavailable Unavailable Esha Grimm PA-C Unavailable [phone] Valery Veronica PA-C Unavailable Rey Tay [...] Nowak MD Unavailable Liset Márquez MD Unavailable Cliff L [facility] Unavailable [phone] Encounter Details Date Type Department Care Team (Late st Contact Info) Description 08/01/2020 [facility] [address] [phone] Marija Edgar APRN COMMUNITY DEVELOPMENT MANAGER [address] [facility] [place] [address] Social History Tobacco Use Types Packs/Day [...] CDT Legal Sex Female 4:13 AM MACHINE HOOP MAKER HELPER Gender Identity Female 03/02/2021 5:45 PM CDT Sexual Orientation Straight 02/28/2020 12 :51 AM CDT COVID-19 Exposure Response Date Recorded In the last month, have you been in contact with someone who was confirmed or suspected to have Coronavirus / COVID-19? No / Unsure 07/30/2020 4:53 PM MACHINE HOOP MAKER HELPER documented as of this encounter Miscellaneous Notes * Telephone Encounter - Estephania Black RN - 08/01/2020 9:11 AM MACHINE HOOP MAKER HELPER Schedule patient for Zio Patch. Detailed message left on phone and through [employer]. Estephania Black RN Flex INE HOOP MAKER HELPER * Telephone Encounter - Marija Edgar APRN CNP - 08/01/2020 8:46 AM MACHINE HOOP MAKER HELPER Please help patient schedule her zio patch. This order has been in place since 05/2020 and a new order was placed this week. INE HOOP MAKER HELPER documented in this encounter Plan of Treatment Upcoming Encounters Date Type Department Care Team (Late st Contact Info) Description 04/30/2025 10:30 AM CDT Office Visit [facility] Women's [facility] [address] [place] [phone] Liset Márquez MD [address] [place] [address] 05/30/2025 2:45 PM MACHINE HOOP MAKER HELPER Office Visit [facility] Heart [address] [phone] Fabiano Correa NP [address] [place], [place] [address] Walter Nowak MD [address] [place], [place] [address] 08/07/2025 8:15 AM MACHINE HOOP MAKER HELPER Office Visit [facility] Heart [place] [id number] [address] [phone] Lucien Grimes MD [address] [id number] 08/21/2025 9:00 AM MACHINE HOOP MAKER HELPER Office Visit [facility] [address] [phone] Neil Kent MD [address] [place], [place] [phone] 10/09/2025 10:45 AM CDT Virtual Visit [facility] Gastroenterology [facility] [address] [facility] [address] 4th [place] [phone] Meredith Carrera PA-C [address] [place] [address] documented as of this encounter Visit Diagnoses Not on filedocumented in this encounter Additional Health Concerns Infection Onset Date Last Indicated Resolved Time Rule Out COVID-19 08/30/2020 08/30/2020 08/30/2020 5:05 PM MACHINE HOOP MAKER HELPER Rule Out COVID-19 09/24/2020 09/24/2020 09/24/2020 9:24 AM CDT Rule Out COVID-19 11/05/2020 11/05/2020 11/06/2020 1:09 PM CDT Rule Out COVID-19 05/11/2021 05/11/2021 05/13/2021 10:18 AM CDT Rule Out COVID-19 07/13/2021 07/13/2021 07/14/2021 3:04 PM MACHINE HOOP MAKER HELPER Rule Out COVID-19 07/18/2021 07/18/2021 07/20/2021 1:56 PM MACHINE HOOP MAKER HELPER COVID-19 07/18/2021 07/18/2021 08/08/2021 11:3 9 PM MACHINE HOOP MAKER HELPER Rule Out COVID-19 12/18/2021 12/18/2021 12/19/2021 11:34 AM CDT Rule Out COVID-19 02/24/2022 02/24/2022 02/25/2022 1:08 PM CDT Rule Out COVID-19 04/26/2022 04/26/2022 04/26/2022 6:47 AM CDT Rule Out COVID-19 05/17/2022 05/17/2022 05/17/2022 10:20 PM MACHINE HOOP MAKER HELPER Rule Out COVID-19 06/09/2022 06/09/2022 06/09/2022 9:35 AM MACHINE HOOP MAKER HELPER COVID-19 06/09/2022 06/09/2022 06/30/2022 11:4 1 PM MACHINE HOOP MAKER HELPER Rule Out COVID-19 11/10/2022 11/10/2022 11/11/2022 [...] Depression Total Score: 9 06/25/20 7:04 AM MACHINE HOOP MAKER HELPER documented as of this encounter Care Teams Architectural Engineer Relationship Specialty Start Date End Date Marija Edgar APRN COMMUNITY DEVELOPMENT MANAGER PCP - General Nurse Practitioner 04/30/20 04/14/23 Esha Grimm PA-C [address] [place] [phone] PCP - General Family Medicine 05/04/23 Lita Oseguera Personal Advocate & Liaison (PAL) 02/28/20 03/27/23 Chanelle Mccann APRN [place] [address] [id number] Assigned OBGYN Provider 05/02/2005/09 Kyara De La Fuente, VJ Specialty Yarn Bleaching Machine Operator Neurology 06/04/20 03/05/21 Marija Edgar APRN COMMUNITY DEVELOPMENT MANAGER Assigned PCP 06/08/20 04/29/23 Mynor Broussard MD [address] [place] [address] Assigned Surgical Provider 06/01/20 11/28/21 Keisha Dotson MD [address] [place] [address] Assigned Neuroscience Provider 06/04/20 04/01/23 Mary Mejia Financial Resource Worker 08/07/20 08/21/20 Stacey Briones, [facility] Lead Yarn Bleaching Machine Operator Primary Care - CC 08/11/20 12/30/20 Lesley Guillermo, [facility] Community Health Worker 08/11/20 10/01/20 Mary Mejia Financial Resource Worker 09/02/20 10/06/20 Lita Oseguera Personal Advocate & Liaison (PAL) Family Medicine 09/10/20 09/21/20 Galo Burrell MD Assigned Heart and Vascular Provider 10/05/20 04/02/22 Cristina Wood Financial Resource Worker 10/07/20 10/14/20 Lesley Guillermo, [facility] Community Health Worker 10/23/20 12/30/20 Meredith Bedoya Financial Resource Worker 10/23/20 11/23/20 rCistina Wood Financial Resource Worker 02/09/21 02/09/21 Diana Desir, [facility] [address] [place] [address] Pharmacist Pharmacist 04/17/21 Rain Galaviz PA-C [address] [facility] [address] [place] [address] Physician Electrician Technician Dermatology 04/28/21 Summer Lara MD [address] [place] [address] Assigned OBGYN Provider 05/10/2105/23 Summer Lara MD [address] [place] [address] Assigned OBGYN Provider 05/31/21 Summer Lara MD [address] [facility] [place] [address] Assigned OBGYN Provider 05/24/2105/30 Tavia Wyatt MD [address] [place] [address] Dermatology 07/14/21 Johnny Murillo MD [address] [place] [address] Assigned Musculoskeletal Provider 08/30/21 03/17/22 Erica Farrell APRN COMMUNITY DEVELOPMENT MANAGER [address] [facility] [address] [place] [phone] Nurse Practitioner Cardiovascular Disease 09/09/21 Teresita Bean, [facility] [address] [place] [address] Pharmacist Pharmacist 09/24/21 09/29/21 Tavia Wyatt MD [address] [place] [address] Assigned Surgical Provider 11/29/21 05/07/22 Diana Desir, [facility] [address] [place] [address] Assigned MTM Pharmacist 01/02/22 Rich Barrett MD [address] [place] [address] [phone] Physician Ophthalmology 01/21/22 Neil Kent MD 500 [place], [place] 128245 Dermatology 02/24/22 Roney Story DPM [address] [facility] [address] [place] [address] Assigned Musculoskeletal Provider 03/20/22 08/13/22 Erica Farrell APRN COMMUNITY DEVELOPMENT MANAGER [address] [place] [address] Assigned Heart and Vascular Provider 04/03/22 04/16/22 Diana Desir, [facility] [address] [place] [address] Assigned MTM Pharmacist 04/07/22 Jelena David OD [address] [facility] [place] [address] Assigned Surgical Provider 05/08/22 10/08/22 Galo Burrell MD Assigned Heart and Vascular Provider 04/17/22 06/11/22 Livan Sharif MD [address] [facility] [address] [place] [address] Cardiovascular Disease 05/14/22 Livan Sharif MD [address] [address] [place] [address] Assigned Heart and Vascular Provider 06/12/22 07/23/22 Catherine Cm MD [address] [facility] [address] [place] [address] Cardiovascular Disease 07/21/22 Valery Veronica PAUcheC [address] [place] [address] Physician Electrician Technician Dermatology 07/21/22 Catherine Cm MD [address] [facility] [address] [place] [address] Assigned Heart and Vascular Provider 07/24/22 11/05/22 Johnny Murillo MD [address] [place] [address] Assigned Musculoskeletal Provider 08/14/22 10/08/22 Brea Quinn APRN COMMUNITY DEVELOPMENT MANAGER [address] [place] [address] Nurse Practitioner Dermatology 09/21/22 Brea Quinn APRN COMMUNITY DEVELOPMENT MANAGER [address] [place] [address] [place] [address] Assigned Surgical Provider 10/09/22 05/01/24 [place] [address] [place] [address] Assigned Musculoskeletal Provider 10/09/22 05/01/24 Livan Sharif MD 6405 [facility] [address] [place] [address] Assigned Heart and Vascular Provider 11/06/22 11/12/22 Catherine Cm MD [address] [place] [address] [place] [address] Assigned Heart and Vascular Provider 11/13/22 05/27/23 Sydnie Martinez RN Personal Advocate & Liaison (PAL) Family Medicine 03/28/23 07/31/23 Alfonso Renteria MD 57[address] [facility] 200 [place] [address] Assigned Neuroscience Provider 04/02/23 09/29/24 Cheng Todd PA-C [address] [place] [address] Assigned PCP 04/30/23 07/15/23 Radha Lomeli APRN COMMUNITY DEVELOPMENT MANAGER [address] [place] [address] Assigned Heart and Vascular Provider 05/28/23 11/29/24 Jelena David OD [facility] [facility] [place] [address] MD Ophthalmology 06/15/23 Pao Joseph, RN Personal Advocate & Liaison (PAL) Nurse 08/01/23 11/07/23 Esha Grimm PA-C [address] [place] [phone] Assigned PCP 07/16/23 Valery Veronica PA-C [address] [place] [address] 959805 Physician Electrician Technician Dermatology 09/19/23 Rey Tay MD [address] [place] [address] [phone] MD Gastroenterology 09/20/23 Rocky Zepeda DO [address] [place] [address] 024215 Physician Gastroenterology 09/20/23 Philip Dumont MD [address] [place] [address] 036345 Physician Ophthalmology 09/22/23 Meredith Carrera PA-C [address] [place] [address] 832695 Assigned Gastroenterology Provider 11/01/23 Neil Kent MD [address] [phone] Dermatology 11/02/23 [place] [address] [place] [address] Neurological Surgery 12/26/23 Audrey Waite PA-C 500 [place] [address] Physician Electrician Technician Dermatology 02/28/24 Valery Veronica PA-C 124161 [address] [place] [address] Physician Electrician Technician Dermatology 04/10/24 Herminia Hatch MD [address] [place] [address] Assigned Rheumatology Provider 07/02/24 Jelena David OD [address] [place] [address] [place] [address] Ophthalmology 08/30/24 [place] [address] [place] [address] Assigned Neuroscience Provider 09/30/24 Maru Man PA-C [address] [place] [address] Physician Electrician Technician Dermatology 10/03/24 Maru Man PA-C [address] [place] [address] Physician Electrician Technician Dermatology 10/22/24 Jelena David OD [address] [place] [address] [place] [address] Assigned Surgical Provider 10/31/24 Fabiano Correa NP [address] [place] [address] Assigned Heart and Vascular Provider 11/30/24 Walter Nowak MD [address] [place] [id number] Physician Clinical Cardiac Electrophysiology 03/01/25 Liset Márquez MD [address] [place], [place] [address] anesthesia director 03/13/25 Lauren Coronado, [facility] 9[address] [place], [place] 169[address] Pharmacist Pharmacist 04/15/25 documented as of this encounter
--- OUTSIDE RECORDS SUMMARY | 2025-04-26 23:54 | XMS_ITS | Encounter Summary ---
Author Organization [place] Address [address] [place] [address] Care Team Providers Care Soaker Meat Name Role Phone Lita Oseguera Unavailable Unavailable Marija Edgar APRN EYE GLASS FRAME POLISHER Primary Care Provider + Marija Edgar APRN EYE GLASS FRAME POLISHER Unavailable [phone] Mynor Broussard MD Unavailable [phone] Keisha Dotson MD Unavailable [phone] Galo Burrell MD Unavailable Unavailable Diana Desir [facility] Unavailable Rain Galaviz PA-C Unavailable Summer Lara MD Unavailable [phone] Tavia Wyatt MD Unavailable Johnny Murillo MD Unavailable Erica Farrell APRN EYE GLASS FRAME POLISHER Unavailable Tavia Wyatt MD Unavailable Diana Desir [facility] Unavailable Rich Barrett MD Unavailable [phone] Neil Kent MD Unavailable Roney StoryM Unavailable Erica Farrell CO DIRECTOR EYE GLASS FRAME POLISHER Unavailable Diana Desir [facility] Unavailable [phone] Jelena David OD Unavailable Galo Burrell MD Unavailable Unavailable Livan Sharif MD Unavailable Livan Sharif MD Unavailable Catherine Cm MD Unavailable + Valery Veronica PA-C Unavailable [phone] Catherine Cm MD Unavailable + Johnny Murillo MD Unavailable [phone] Brea Quinn CO DIRECTOR EYE GLASS FRAME POLISHER Unavailable [phone] Brea Quinn CO DIRECTOR EYE GLASS FRAME POLISHER Unavailable [phone] Jose Francisco Johnson MD Unavailable Livan Sharif MD Unavailable + IsCatherine hobbs MD Unavailable + Sydnie Martinez RN Unavailable Unavailable Alfonso Renteria MD Unavailable Esha Grimm PA-C Primary Care Provider Cheng Todd PA-C Unavailable Radha Lomeli CO DIRECTOR EYE GLASS FRAME POLISHER Unavailable [phone] Jelena David OD Unavailable [phone] Pao Joseph RN Unavailable Unavailable Ehsa Grimm PA-C Unavailable Valery Veronica PA-C Unavailable [phone] Rey Tay MD Unavailable Rocky Zepeda DO Unavailable Philip Dumont MD Unavailable [phone] Meredith Carrera PA-C Unavailable Neil Kent MD Unavailable Juan Pablo Emmanuel MD Unavailable Audrey Waite PA-C Unavailable Valery Veronica PA-C Unavailable Herminia Hatch MD Unavailable Jelena David OD Unavailable Juan Pablo Emmanuel MD Unavailable [phone] Maru Man-C Unavailable [phone] Maru Man-C Unavailable [phone] Jelena David OD Unavailable Fabiano Correa NP Unavailable Walter Nowak MD Unavailable Liset Márquez MD Unavailable Lauren Coronado [facility] Unavailable [phone] Encounter Details Date Type Department Care Team (Late st Contact Info) Description 11/04/2021 MyC Medical Advice [address] [address] Diana Desir, [facility] [address] [place], [place] [phone] Social History Tobacco Use Types Packs/Day Years [...] How often do you attend quaker or mu-ism serv ices? Never 09/22/2021 Do [...] Answer Date Recorded PHQ-2 Score 2 09/22/2021 [facility] [place] of Occupat ional Health - Occupational Stress [...] in a halfway (including now)? No 09/22/2021 [place] Depression Scale Answer Date Recorded [place] Depression Score 5 01/14/2021 Last EPDS Self Harm Result Not on file 01/14 Education Answer Date Recorded What is the highest level of school you have completed or the highest degree you have received? 12th grade 08/07/2020 Comments No Sex and Gender Information Value Date Recorded Sex Assigned at Female 03/02/2021 5:45 PM CDT Legal Sex Female 4:13 AM MACHINE FEATHEREDGER AND REDUCER Gender Identity Female 03/02/2021 5:45 PM CDT [...] 04/30/2025 10:30 AM CDT Office Visit [facility] [address], [address] [place] [phone] Liset Márquez MD [address] [facility] 300 [place] [address] 05/30/2025 2:45 PM MACHINE FEATHEREDGER AND REDUCER Office Visit [facility] 6405 [facility] [address] [place] [phone] Fabiano Correa, CLUB ROOM ATTENDANT 8305 [place], [place] 0173[address] Walter Nowak MD 1964 [place], [place] 8[address] 08/07/2025 8:15 AM MACHINE FEATHEREDGER AND REDUCER Office Visit [facility] [address] [address] Lucien Grimes MD [address] [phone] 08/21/2025 9:00 AM MACHINE FEATHEREDGER AND REDUCER Office Visit [facility] [address] [phone] Neil Kent MD 500 [place], [place] [phone] 10/09/2025 10:45 AM CDT Virtual Visit [facility] [place] [address] [place] [address] 4th [place] [phone] Meredith Carrera PA-C [address] [place] [address] [phone] (work) documented as of this encounter Visit Diagnoses Not on filedocumented in this encounter Additional Health Concerns Infection Onset Date Last Indicated Resolved Time Rule Out COVID-19 12/18/2021 12/18/2021 12/19/2021 11:34 AM CDT Rule Out COVID-19 02/24/2022 02/24/2022 02/25/2022 1:08 PM CDT Rule Out COVID-19 04/26/2022 04/26/2022 04/26/2022 6:47 AM CDT Rule Out COVID-19 05/17/2022 05/17/2022 05/17/2022 10:20 PM MACHINE FEATHEREDGER AND REDUCER Rule Out COVID-19 06/09/2022 06/09/2022 06/09/2022 9:35 AM MACHINE FEATHEREDGER AND REDUCER COVID-19 06/09/2022 06/09/2022 06/30/2022 11:4 1 PM MACHINE FEATHEREDGER AND REDUCER Rule Out COVID-19 11/10/2022 11/10/2022 11/11/2022 12:17 [...] as of this encounter Care Teams Soaker Meat Relationship Specialty Start Date End Date Marija Edgar APRN EYE GLASS FRAME POLISHER PCP - General Nurse Practitioner 04/30/20 04/14/23 Esha Grimm PA-C [address] [place] [phone] PCP - General Family Medicine 05/04/23 Lita Oseguera Personal Advocate & Liaison (PAL) 02/28/20 03/27/23 Marija Edgar APRN EYE GLASS FRAME POLISHER Assigned PCP 06/08/20 04/29/23 Mynor Broussard MD 909 [place], [place] 879725 Assigned Surgical Provider 06/01/20 11/28/21 Keisha Dotson MD 909 [place], [place] 858435 Assigned Neuroscience Provider 06/04/20 04/01/23 Galo Burrell MD Assigned Heart and Vascular Provider 10/05/20 04/02/22 Diana Desir, [facility] [address] [place] [address] Pharmacist Pharmacist 04/17/21 Rain Galaviz PA-C [address] [place] [address] DR [facility] [place] [address] Physician Mule Tender Dermatology 04/28/21 Summer Lara MD 606 [place], [place] [phone] Assigned OBGYN Provider 05/31/21 2 Tavia Wyatt MD [address] [place] [address] 716774 Dermatology 07/14/21 Johnny Murillo MD [facility] [address] [address] Assigned Musculoskeletal Provider 08/30/21 03/17/22 Erica Farrell APRN EYE GLASS FRAME POLISHER 6405 [facility] [address] [place] [address] Nurse Practitioner Cardiovascular Disease 09/09/21 Tavia Wyatt MD [address] [place] [address] Assigned Surgical Provider 11/29/21 05/07/22 [facility] [address] [place] [address] Assigned MTM Pharmacist 01/02/22 Rich Barrett MD [address] [place] [address] Physician Ophthalmology 01/21/22 Neil Kent MD 500 [place], [place] 913885 Dermatology 02/24/22 Roney Story DPM [address] [facility] 300 [place], [place] [phone] Assigned Musculoskeletal Provider 03/20/22 08/13/22 Erica Farrell APRN EYE GLASS FRAME POLISHER 1700 [place] [address] Assigned Heart and Vascular Provider 04/03/22 04/16/22 [facility] 3033 [facility] [place] [address] Assigned MTM Pharmacist 04/07/22 Jelena David OD [address] [facility] [place] [address] Assigned Surgical Provider 05/08/22 10/08/22 Galo Burrell MD Assigned Heart and Vascular Provider 04/17/22 06/11/22 Livan Sharif MD [address] [place], [place] 290905 Cardiovascular Disease 05/14/22 Livan Sharif MD [address] [place] [address] Assigned Heart and Vascular Provider 06/12/22 07/23/22 Catherine Cm MD [address] [place] 6[address] Cardiovascular Disease 07/21/22 Valery Veronica, PAUcheC 909 [place] [address] Physician Mule Tender Dermatology 07/21/22 Catherine Cm MD 6405 [facility] [address] [place] [address] Assigned Heart and Vascular Provider 07/24/22 11/05/22 Johnny Murillo MD [address] [phone] Assigned Musculoskeletal Provider 08/14/22 10/08/22 Brea Quinn APRN EYE GLASS FRAME POLISHER 500 [place], [place] 980335 Nurse Practitioner Dermatology 09/21/22 Brea Quinn APRN EYE GLASS FRAME POLISHER 6401 [facility] [place] 137062 Assigned Surgical Provider 10/09/22 05/01/24 [place] [address] 208247 Assigned Musculoskeletal Provider 10/09/22 05/01/24 Livan Sharif MD 6[address] [facility] [address] [place] 576065 Assigned Heart and Vascular Provider 11/06/22 11/12/22 Catherine Cm MD [address] [facility] [address] [place] 212735 Assigned Heart and Vascular Provider 11/13/22 05/27/23 Sydnie Martinez RN Personal Advocate & Liaison (PAL) Family Medicine 03/28/23 07/31/23 Alfonso Renteria MD [address] [facility] [address] 200 [place] [address] Assigned Neuroscience Provider 04/02/23 09/29/24 Cheng Todd PA-C [address] [place] [address] Assigned PCP 04/30/23 07/15/23 Radha Lomeli, CO DIRECTOR EYE GLASS FRAME POLISHER 6405 [facility] [address] [place] [address] Assigned Heart and Vascular Provider 05/28/23 11/29/24 Jelena David OD [address] [facility] [address] [place] [id number] Ophthalmology 06/15/23 Pao Joseph, VJ Personal Advocate & Liaison (PAL) Nurse 08/01/23 11/07/23 Esha Grimm PA-C [address] [place] [address] Assigned PCP 07/16/23 Valery Veronica PA-C [address] [place] [address] Physician Mule Tender Dermatology 09/19/23 Rey Tay MD [address] [place] [address] 300885 Gastroenterology 09/20/23 Rocky Zepeda DO [address] [place] [address] 719005 Physician Gastroenterology 09/20/23 Philip Dumont MD 516 [place] [address] Physician Ophthalmology 09/22/23 Meredith Carrera PA-C [address] [place] [address] Assigned Gastroenterology Provider 11/01/23 Neil Kent MD [address] 532130 MD Dermatology 11/02/23 [place] [address] [address] [facility] [place] [address] Neurological Surgery 12/26/23 Audrey Waite PA-C 500 [place] [address] Physician Mule Tender Dermatology 02/28/24 Valery Veronica PA-C 050812 [address], [place] [address] Physician Mule Tender Dermatology 04/10/24 Herminia Hatch MD [facility]5 [place], [place] 19553125 Assigned Rheumatology Provider 07/02/24 Jelena David OD 3305 [facility] [place] [address] Ophthalmology 08/30/24 [place] [address] 300 [place] [address] Assigned Neuroscience Provider 09/30/24 Maru Man PA-C [address] [place] [address] Physician Mule Tender Dermatology 10/03/24 Maur Man PA-C [address] [place] [address] Physician Mule Tender Dermatology 10/22/24 Jelena David OD [address] [facility] [place] [address] Assigned Surgical Provider 10/31/24 Fabiano Correa NP 6405 [facility] [address] Assigned Heart and Vascular Provider 11/30/24 Walter Nowak MD [address] [place] [address] Physician Clinical Cardiac Electrophysiology 03/01/25 Liset Márquez MD 606 [facility] 300 [place] [address] derrick boat leverman 03/13/25 Lauren Coronado, [facility] 909 [place], [place] 97[address] Pharmacist Pharmacist 04/15/25 documented as of this encounter
--- OUTSIDE RECORDS SUMMARY | 2025-04-26 23:54 | XMS_ITS | Encounter Summary ---
Author Organization [place] Address [address] [place] [address] Care Team Providers Care Motorcycle Riding Instructor Name Role Phone Diana Desir [facility] Unavailable Rain Galaviz PA-C Unavailable [phone] Tavia Wyatt MD Unavailable Erica Farrell APRN HONEY PROCESSOR Unavailable Rich Barrett MD Unavailable [phone] Neil Kent MD Unavailable DesirDiana [facility] Unavailable Livan Sharif MD Unavailable Cahterine Cm MD Unavailable + Valery Veronica PA-C Unavailable [phone] Brea Quinn APRN HONEY PROCESSOR Unavailable [phone] Brea Quinn LEAD MANUFACTURING ENGINEER HONEY PROCESSOR Unavailable Jose Francisco Johnson MD Unavailable Sydnie Martinez RN Unavailable Unavailable Alfonso Renteria MD Unavailable [phone] Esha Grimm PA-C Primary Care Provider Cheng Todd PA-C Unavailable Radha Lomeli APRN HONEY PROCESSOR Unavailable Jelena David OD Unavailable Pao Joseph RN Unavailable Unavailable Esha Grimm Adam PA-C Unavailable [phone] Valery Veronica PA-C Unavailable Rey Tay [...] Unavailable Jelena David OD Unavailable Fabiano Correa MUSICAL THERAPIST Unavailable Walter Nowak MD Unavailable Liset Márquez MD Unavailable aLuren Coronado [facility] Unavailable Encounter Details Date Type Department Care Team (Late st Contact Info) Description 06/15/2023 [facility] [place] [phone] Doris Levi Social History Tobacco Use Types [...] Answer Date Recorded PHQ-2 Score 1 05/16/2023 [facility] of Occupat ional [...] exercise at this level? 30 min 03/10/2023 [place] Depression Scale Answer Date Recorded [place] Depression Score 5 01/14/2021 Last EPDS Self [...] PM CDT Legal Sex Female 4:13 AM ELIGIBILITY AND OCCUPANCY INTERVIEWER Gender Identity Female 03/02/2021 5:45 PM CDT Sexual Orientation Straight 02/28/2020 12 :51 AM CDT documented as of this encounter Plan of Treatment Upcoming Encounters Date Type Department Care Team (Late st Contact Info) Description 04/30/2025 10:30 AM CDT Office Visit [facility] [address], [address] [place] [phone] Liset Márquez MD [address] [place] [address] 05/30/2025 2:45 PM ELIGIBILITY AND OCCUPANCY INTERVIEWER Office Visit [facility] [address] [phone] Fabiano Correa NP 6405 [place], [place] 9[address] Walter Nowak MD 1196 [place], [place] 5369[address] 08/07/2025 8:15 AM ELIGIBILITY AND OCCUPANCY INTERVIEWER Office Visit [facility] [address] [phone] Lucien Grimes MD [address] 9368[address] 08/21/2025 9:00 AM ELIGIBILITY AND OCCUPANCY INTERVIEWER Office [facility] [address] [address] Neil Kent MD 500 [place], [place] 5756[address] 10/09/2025 10:45 AM CDT Virtual Visit [facility] 909 [facility] 4th [place] [address] Meredith Carrera PA-C 909 [place], [place] 616195 documented as of this encounter Visit Diagnoses [...] Depression Total Score: 6 05/16/20 9:29 AM ELIGIBILITY AND OCCUPANCY INTERVIEWER documented as of this encounter Care Teams Motorcycle Riding Instructor Relationship Specialty Start Date End Date Esha Grimm PA-C [address] [place] [address] PCP - General Family Medicine 05/04/23 Diana Desir, [facility] 3033 [place] [address] Pharmacist Pharmacist 04/17/21 Rain Galaviz PA-C [address] [place] [address] [place] [address] Physician Social Worker Palliative Care Dermatology 04/28/21 Tavia Wyatt MD [address] [place] [address] DR [address] [facility] [address] Dermatology 07/14/21 Erica Farrell APRN HONEY PROCESSOR [address] [place] [address] Nurse Practitioner Cardiovascular Disease 09/09/21 Rich Barrett MD [address] [place], [place] [address] Physician Ophthalmology 01/21/22 Neil Kent MD 500 [place] [address] Dermatology 02/24/22 [facility] [address] [place] [address] Assigned MTM Pharmacist 04/07/22 Livan Sharif MD [address] [address] Cardiovascular Disease 05/14/22 Catherine Cm MD [address] [address] Cardiovascular Disease 07/21/22 Valery Veronica, PA-C [address] [place] [address] 928165 Physician Social Worker Palliative Care Dermatology 07/21/22 Brea Quinn APRN HONEY PROCESSOR [address] [place] [address] Nurse Practitioner Dermatology 09/21/22 Brea Quinn, LEAD MANUFACTURING ENGINEER HONEY PROCESSOR 6401 [facility] [place] [address] Assigned Surgical Provider 10/09/22 05/01/24 [place] [address] [address] [facility] 300 [place] [address] Assigned Musculoskeletal Provider 10/09/22 05/01/24 Sydnie Martinez RN Personal Advocate & Liaison (PAL) Family Medicine 03/28/23 07/31/23 Alfonso Renteria MD 5775 [facility] 200 [place] [address] Assigned Neuroscience Provider 04/02/23 09/29/24 Cheng Todd PA-C [address] [place] [address] [id number] Assigned PCP 04/30/23 07/15/23 Radha Lomeli APRN HONEY PROCESSOR 6405 [facility] [address] [place] [address] Assigned Heart and Vascular Provider 05/28/23 11/29/24 Jelena David OD 3305 [facility] [place] [address] Ophthalmology 06/15/23 Pao Joseph, VJ Personal Advocate & Liaison (PAL) Nurse 08/01/23 11/07/23 Esha Grimm PAUcheC [address] [place] [address] Assigned PCP 07/16/23 Valery Veronica PA-C [address] [place] [address] Physician Social Worker Palliative Care Dermatology 09/19/23 Rey Tay MD [address] [place] [address] MD Gastroenterology 09/20/23 Rocky Zepeda DO [address] [place] [address] Physician Gastroenterology 09/20/23 Philip Dumont MD [address] [place] [address] Physician Ophthalmology 09/22/23 Meredith Carrera PA-C [address] [place] [address] 946585 Assigned Gastroenterology Provider 11/01/23 Neil Kent MD [address] [address] Dermatology 11/02/23 [place] [address] [place] [address] Neurological Surgery 12/26/23 Audrey Waite PA-C [address] [place] [address] Physician Social Worker Palliative Care Dermatology 02/28/24 Valery Veronica PA-C [address] [place] [address] Physician Social Worker Palliative Care Dermatology 04/10/24 Herminia Hatch MD [address] [place] [address] 66036125 Assigned Rheumatology Provider 07/02/24 Jelena David, SONJA [address] [place] [address] [place] [address] Ophthalmology 08/30/24 [place] [address] [place] [address] Assigned Neuroscience Provider 09/30/24 Maru Man PA-C [address] [place] [address] Physician Social Worker Palliative Care Dermatology 10/03/24 Maru Man PA-C [address] [place] [address] Physician Social Worker Palliative Care Dermatology 10/22/24 [place] [address] [place] [address] [place] [address] Assigned Surgical Provider 10/31/24 Fabiano Correa NP [address]405 [place] [address] Assigned Heart and Vascular Provider 11/30/24 Walter Nowak MD 6405 [place] [address] Physician Clinical Cardiac Electrophysiology 03/01/25 Liset Márquez MD [address] [address] medical lab technician 03/13/25 Lauren Coronado, [facility] [address] [place] [address] 793405 Pharmacist Pharmacist 04/15/25 documented as of this encounter
--- OUTSIDE RECORDS SUMMARY | 2025-04-26 23:54 | XMS_ITS | Patient Health Record ---
Author Organization [facility] Address [facility]ly [facility] 550 [place] [address] Care Team Providers Care Sock Drier Name Role Phone Romario ACEVEDO, Yanely Unavailable [phone] Reason For Referral No Information Social History Social History PSA Social History Social Info Question Answer Notes SMOKING STATUS 13Y AND OLDER Are you a: Non-Smoker Education: Is the Child in School? Yes What Grade? 7th Additional Details Category Social Info Options Details PSA Social History Child Lives At: Home Child Lives With: Mother,Other Day Care No Siblings 3 Alcohol/Drugs? No Activities / Interests? baseball , running, biking, video games, reading, youth group, outdoors Others Residing In Home: All Mem bers: Mom, Step Dad, Brother, Sister, Step Sister Employment No Recent Travel no Plan Of Treatment No Information Insurance Providers Payer Name Payer Address Payer Phone Subscriber Number Group Number Insured Name Patient Relationship to Insured Coverage Start Date Coverage End Date [facility] [address] [address] [place] [address] [id number] Austin Johnson Child - Insured has Financial Responsibility 7
--- OUTSIDE RECORDS SUMMARY | 2025-04-26 23:54 | XMS_ITS | Encounter Summary ---
Author Organization [facility] Address [address] [place] [address] Care Team Providers Care Hat Brim And Crown Laminating Operator Name Role Phone Lita Oseguera Unavailable Unavailable Marija Edgar APRN PATIENT OMBUDSPERSON Primary Care Provider + Marija Edgar APRN PATIENT OMBUDSPERSON Unavailable [phone] Mynor Broussard MD Unavailable [phone] Keisha Dotson MD Unavailable Galo Burrell MD Unavailable Unavailable Diana Desir [facility] Unavailable Rain Galaviz PA-C Unavailable Summer Lara MD Unavailable [phone] Tavia Wyatt MD Unavailable Johnny Murillo MD Unavailable Erica Farrell APRN PATIENT OMBUDSPERSON Unavailable Tavia Wyatt MD Unavailable Diana Desir [facility] Unavailable Rich Barrett MD Unavailable [phone] Neil Kent MD Unavailable Roney StoryM Unavailable Erica Farrell DOCUMENT DESIGN SPECIALIST PATIENT OMBUDSPERSON Unavailable Diana Desir [facility] Unavailable [phone] Jelena David OD Unavailable Galo Burrell MD Unavailable Unavailable Livan Sharif MD Unavailable Livan Sharif MD Unavailable Catherine Cm MD Unavailable + Valery Veronica PA-C Unavailable [phone] Catherine Cm MD Unavailable + Johnny Murillo MD Unavailable [phone] Brea Quinn DOCUMENT DESIGN SPECIALIST PATIENT OMBUDSPERSON Unavailable [phone] Brea Quinn DOCUMENT DESIGN SPECIALIST PATIENT OMBUDSPERSON Unavailable [phone] Jose Francisco Johnson MD Unavailable Livan Sharif MD Unavailable + IsCatherine hobbs MD Unavailable + Sydnie Martinez RN Unavailable Unavailable Alfonso Renteria MD Unavailable Esha Grimm PA-C Primary Care Provider Cheng Todd PA-C Unavailable Radha Lomeli DOCUMENT DESIGN SPECIALIST PATIENT OMBUDSPERSON Unavailable [phone] Jelena David OD Unavailable [phone] Pao Joseph RN Unavailable Unavailable Esha Grimm PA-C Unavailable [phone] Valery Veronica PA-C Unavailable [phone] Rey Tay MD Unavailable Rocky Zepeda DO Unavailable Philip Dumont MD Unavailable [phone] Meredith Carrera PA-C Unavailable Neil Kent MD Unavailable Juan Pablo Emmanuel MD Unavailable Audrey Waite PA-C Unavailable Valery Veronica PA-C Unavailable [phone] Herminia Hatch MD Unavailable Jelena David OD Unavailable Juan Pablo Emmanuel MD Unavailable Maru Man-C Unavailable [phone] Maru Man-C Unavailable [phone] Jelena David OD Unavailable Fabiano Correa NP Unavailable Walter Nowak MD Unavailable Liset Márquez MD Unavailable Lauren Coronado [facility] Unavailable [phone] Encounter Details Date Type Department Care Team (Late st Contact Info) Description 11/16/2021 MyC Medical Advice [address] [phone] Diana Desir, [facility] [address] [place], [place] [phone] Social History Tobacco Use Types Packs/Day Years [...] How often do you attend methodist or adventist serv ices? Never 09/22/2021 Do [...] Answer Date Recorded PHQ-2 Score 2 09/22/2021 [facility] of Occupat ional Health - Occupational [...] in a fdc (including now)? No 09/22/2021 Tenaha Depression Scale Answer Date Recorded Tenaha Depression Score 5 01/14/2021 Last EPDS Self Harm Result Not on file 01/14 Education Answer Date Recorded What is the highest level of school you have completed or the highest degree you have received? 12th grade 08/07/2020 Comments No Sex and Gender Information Value Date Recorded Sex Assigned at Female 03/02/2021 5:45 PM CDT Legal Sex Female 4:13 AM PASTEURIZER HELPER Gender Identity Female 03/02/2021 5:45 PM [...] Description 04/30/2025 10:30 AM CDT Office Visit [facility] [address], [address] [place] [phone] Liset Márquez MD [address] [facility] [address] [place] [address] 05/30/2025 2:45 PM PASTEURIZER HELPER Office Visit [facility] [address] [facility] [address] [place] [phone] Fabiano Correa, [employer]AT [employer] ELEMENT MAKER [address] [place], [place] [address] Walter Nowak MD [address] [place], [place] [address] 08/07/2025 8:15 AM PASTEURIZER HELPER Office Visit [facility] [address] [phone] Lucien Grimes MD [address] [phone] 08/21/2025 9:00 AM PASTEURIZER HELPER Office Visit [facility] [address] [phone] Neil Kent MD [address] [place], [place] [phone] 10/09/2025 10:45 AM CDT Virtual Visit [facility] [place] [address] [place] [address] 4th [place] [phone] Meredith Carrera PA-C [address] [place] [phone] (work) documented as of this encounter Visit Diagnoses Not on filedocumented in this encounter Additional Health Concerns Infection Onset Date Last Indicated Resolved Time Rule Out COVID-19 12/18/2021 12/18/2021 12/19/2021 11:34 AM CDT Rule Out COVID-19 02/24/2022 02/24/2022 02/25/2022 1:08 PM CDT Rule Out COVID-19 04/26/2022 04/26/2022 04/26/2022 6:47 AM CDT Rule Out COVID-19 05/17/2022 05/17/2022 05/17/2022 10:20 PM PASTEURIZER HELPER Rule Out COVID-19 06/09/2022 06/09/2022 06/09/2022 9:35 AM PASTEURIZER HELPER COVID-19 06/09/2022 06/09/2022 06/30/2022 11:4 1 PM PASTEURIZER HELPER Rule Out COVID-19 11/10/2022 11/10/2022 11/11/2022 [...] as of this encounter Care Teams Hat Brim And Crown Laminating Operator Relationship Specialty Start Date End Date Marija Edgar APRN PATIENT OMBUDSPERSON PCP - General Nurse Practitioner 04/30/20 04/14/23 Esha Grimm PA-C [address] [place] [phone] PCP - General Family Medicine 05/04/23 Lita Oseguera Personal Advocate & Liaison (PAL) 02/28/20 03/27/23 Marija Edgar APRN PATIENT OMBUDSPERSON Assigned PCP 06/08/20 04/29/23 Mynor Broussard MD [address] [place], [place] [address] Assigned Surgical Provider 06/01/20 11/28/21 Keisha Dotson MD [address] [place], [place] [phone] Assigned Neuroscience Provider 06/04/20 04/01/23 Galo Burrell MD Assigned Heart and Vascular Provider 10/05/20 04/02/22 Diana Desir, [facility] [address] [place] [address] Pharmacist Pharmacist 04/17/21 Rain Galaviz PA-C [address] [place] [address] [address] [facility] [facility] [place] [address] Physician Behaviour Support Teacher Dermatology 04/28/21 Summer Lara MD [address] [place], [place] [phone] Assigned OBGYN Provider 05/31/21 2 Tavia Wyatt MD [address] [place] [address] [phone] Dermatology 07/14/21 Johnny Murillo MD [facility] [address] [address] Assigned Musculoskeletal Provider 08/30/21 03/17/22 Erica Farrell APRN PATIENT OMBUDSPERSON [address] [facility] [address] [place] [address] Nurse Practitioner Cardiovascular Disease 09/09/21 Tavia Wyatt MD [address] [place] [address] Assigned Surgical Provider 11/29/21 05/07/22 [facility] [address] [place] [address] Assigned MTM Pharmacist 01/02/22 Rich Barrett MD [address] [place] [address] Physician Ophthalmology 01/21/22 Neil Kent MD [address] [place], [place] [phone] Dermatology 02/24/22 Roney Story DPM [address] [facility] [address] [place], [place] [phone] Assigned Musculoskeletal Provider 03/20/22 08/13/22 Erica Farrell APRN PATIENT OMBUDSPERSON [address] [place] [address] Assigned Heart and Vascular Provider 04/03/22 04/16/22 [facility] [address] [facility] [place] [address] Assigned MTM Pharmacist 04/07/22 Jelena David OD [address] [facility] [place] [address] Assigned Surgical Provider 05/08/22 10/08/22 Galo Burrell MD Assigned Heart and Vascular Provider 04/17/22 06/11/22 Livan Sharif MD [address] [place], [place] [address] Cardiovascular Disease 05/14/22 Livan Sharif MD [address] [place] [address] Assigned Heart and Vascular Provider 06/12/22 07/23/22 Catherine Cm MD [address] [place] [address] Cardiovascular Disease 07/21/22 Valery Veronica, PAUcheC [address] [place] [address] Physician Behaviour Support Teacher Dermatology 07/21/22 Catherine Cm MD [address] [facility] [address] [place] [address] Assigned Heart and Vascular Provider 07/24/22 11/05/22 Johnny Murillo MD [address] 299864 Assigned Musculoskeletal Provider 08/14/22 10/08/22 Brea Quinn APRN PATIENT OMBUDSPERSON [address] [place], [place] [address] Nurse Practitioner Dermatology 09/21/22 Brea Quinn APRN PATIENT OMBUDSPERSON [address] [facility] [place] [id number] Assigned Surgical Provider 10/09/22 05/01/24 [place] [address] [place] [address] [phone] Assigned Musculoskeletal Provider 10/09/22 05/01/24 Livan Sharif MD [address] [facility] [facility] [address] [place] [phone] Assigned Heart and Vascular Provider 11/06/22 11/12/22 Catherine Cm MD [address] [facility] [address] [place] [address]235 Assigned Heart and Vascular Provider 11/13/22 05/27/23 Sydnie Martinez RN Personal Advocate & Liaison (PAL) Family Medicine 03/28/23 07/31/23 Alfonso Renteria MD [address] [facility] [address] [place] [address] Assigned Neuroscience Provider 04/02/23 09/29/24 Cheng Todd PA-C [address] [place] [address] Assigned PCP 04/30/23 07/15/23 Radha Lomeli, DOCUMENT DESIGN SPECIALIST PATIENT OMBUDSPERSON [address] [facility] [address] [place] [address] Assigned Heart and Vascular Provider 05/28/23 11/29/24 Jelena David OD [address] [facility] [address] [place] [id number] Ophthalmology 06/15/23 Pao Joseph, VJ Personal Advocate & Liaison (PAL) Nurse 08/01/23 11/07/23 Esha Grimm PA-C [address] [place] [phone] Assigned PCP 07/16/23 Valery Veronica PA-C [address] [place] [address] Physician Behaviour Support Teacher Dermatology 09/19/23 Rey Tay MD [address] [place] [address] Gastroenterology 09/20/23 Rocky Zepeda DO [address] [place] [address] 617635 Physician Gastroenterology 09/20/23 Philip Dumont MD [address] [place] [address] Physician Ophthalmology 09/22/23 Meredith Carrera PA-C [address] [place] [address] Assigned Gastroenterology Provider 11/01/23 Neil Kent MD [address] 255370 MD Dermatology 11/02/23 [place] [address] [facility] [place] [address] Neurological Surgery 12/26/23 Audrey Waite PA-C 500 [place] [address] Physician Behaviour Support Teacher Dermatology 02/28/24 Valery Veronica PA-C 718355 [address], [place] [address] Physician Behaviour Support Teacher Dermatology 04/10/24 Herminia Hatch MD [facility]5 [place], [place] [phone] Assigned Rheumatology Provider 07/02/24 Jelena David OD [address] [facility] [place] [address] Ophthalmology 08/30/24 [place] [address] [place] [address] Assigned Neuroscience Provider 09/30/24 Maru Man PA-C [address] [place] [address] Physician Behaviour Support Teacher Dermatology 10/03/24 Maru Man PA-C [address] [place] [address] Physician Behaviour Support Teacher Dermatology 10/22/24 [place] [address] [facility] [place] [address] Assigned Surgical Provider 10/31/24 Fabiano Correa NP [address] [facility] [place] [address] Assigned Heart and Vascular Provider 11/30/24 Walter Nowak MD [address] [place] [address] Physician Clinical Cardiac Electrophysiology 03/01/25 Liset Márquez MD 606 [facility] 300 [place] [address] asphalt heater operator 03/13/25 Lauren Coronado, [facility] 909 [place], [place] 14[address] Pharmacist Pharmacist 04/15/25 documented as of this encounter
--- OUTSIDE RECORDS SUMMARY | 2025-04-26 23:54 | XMS_ITS | Encounter Summary ---
Author Organization [facility] Address [address] [place] [address] Care Team Providers Care Report Manager Name Role Phone Lita Oseguera Unavailable Unavailable Marija Edgar APRN MEASUREMENT SUPERVISOR Primary Care Provider + Chanelle Mccann APRN CNM Unavailab le Kyara De La Fuente RN Unavailable [phone] Marija Edgar APRN MEASUREMENT SUPERVISOR Unavailable Mynor Broussard MD Unavailable [phone] Keisha Dotson MD Unavailable [phone] Mary Mejia Unavailable Unavailable Stacey Briones NUCLEAR REACTOR TECHNICIAN Unavailable [phone] Lesley Guillermo CHW Unavailable Mary Mejia Unavailable Unavailable Lita Oseguera Unavailable Unavailable Galo Burrell MD Unavailable Unavailable Cristina Wood Unavailable Lesley Guillermo CHW Unavailable Meredith Bedoya Unavailable Unavailable Cristina Wood Unavailable Diana Desir [facility] Unavailable Rain Galaviz PA-C Unavailable Summer Lara MD Unavailable [phone] Summer Lara MD Unavailable [phone] Summer Lara MD Unavailable [phone] Tavia Wyatt MD Unavailable [phone] Johnny Murillo MD Unavailable [phone] Erica Farrell APRN MEASUREMENT SUPERVISOR Unavailable VikasTeresita [facility] Unavailable Tavia Wyatt MD Unavailable [phone] Diana Desir [facility] Unavailable [phone] Rich Barrett MD Unavailable [phone] Neil Kent MD Unavailable Roney Story [facility] Unavailable Erica Farrell APRN MEASUREMENT SUPERVISOR Unavailable Diana Desir [facility] Unavailable [phone] Jelena David OD Unavailable Galo Burrell MD Unavailable Unavailable Livan Sharif MD Unavailable Livan Sharif MD Unavailable Catherine Cm MD Unavailable + Valery Veronica PA-C Unavailable [phone] Catherine Cm MD Unavailable + Johnny Murillo MD Unavailable [phone] Brea Quinn APRN MEASUREMENT SUPERVISOR Unavailable [phone] Brea Quinn APRN MEASUREMENT SUPERVISOR Unavailable [phone] Jose Francisco Johnson MD Unavailable Livan Sharif MD Unavailable Catherine Cm MD Unavailable + Sydnie Martinez RN Unavailable Unavailable Alfonso Renteria MD Unavailable [phone] Esha Grimm PA-C Primary Care Provider Cheng Todd PA-C Unavailable Radha Lomeli APRN MEASUREMENT SUPERVISOR Unavailable Jelena David OD Unavailable Pao Joseph RN Unavailable Unavailable Esha Grimm PA-C Unavailable [phone] Valery Veronica PA-C Unavailable Rey Tay [...] Unavailable Liset Márquez MD Unavailable Lauren Coronado [facility] Unavailable Encounter Details Date Type Department Care Team (Late st Contact Info) Description 08/07/2020 MyC Medical Advice [facility] Care Coordination [facility] [address] [place] [address] Lesley Guillermo, [facility] Social History Tobacco Use Types Packs/Day [...] Answer Date Recorded PHQ-2 Score 3 06/24/2020 [facility] - [...] CDT Legal Sex Female 4:13 AM PAINT LINE SUPERVISOR Gender Identity Female 03/02/2021 5:45 PM CDT Sexual Orientation Straight 02/28/2020 12 :51 AM CDT COVID-19 Exposure Response Date Recorded In the last month, have you been in contact with someone who was confirmed or suspected to have Coronavirus / COVID-19? No / Unsure 08/06/2020 2:03 PM PAINT LINE SUPERVISOR documented as of this encounter Functional Status documented as of this encounter Plan of Treatment Upcoming Encounters Date Type Department Care Team (Late st Contact Info) Description 04/30/2025 10:30 AM CDT Office Visit [facility] [place] [address], [address], [place] [address] [place] [address] Liset Márquez MD [address] [address] 05/30/2025 2:45 PM PAINT LINE SUPERVISOR Office Visit [address] [place] [phone] Fabiano Correa NP [address] [facility] [address] Walter Nowak MD [address] [facility] [place], [place] [address] 08/07/2025 8:15 AM PAINT LINE SUPERVISOR Office Visit [facility] [address] [phone] Lucien Grimes MD [address] [address] 08/21/2025 9:00 AM PAINT LINE SUPERVISOR Office Visit [facility] [address] [phone] Neil Kent MD [address] [place] [address] 10/09/2025 10:45 AM CDT Virtual Visit [facility] [place] [address] [facility] 4th [place] [phone] Meredith Carrera PA-C [address] [place] [address] documented as of this encounter Visit Diagnoses Not on filedocumented in this encounter Additional Health Concerns Infection Onset Date Last Indicated Resolved Time Rule Out COVID-19 08/30/2020 08/30/2020 08/30/2020 5:05 PM PAINT LINE SUPERVISOR Rule Out COVID-19 09/24/2020 09/24/2020 09/24/2020 9:24 AM CDT Rule Out COVID-19 11/05/2020 11/05/2020 11/06/2020 1:09 PM CDT Rule Out COVID-19 05/11/2021 05/11/2021 05/13/2021 10:18 AM CDT Rule Out COVID-19 07/13/2021 07/13/2021 07/14/2021 3:04 PM PAINT LINE SUPERVISOR Rule Out COVID-19 07/18/2021 07/18/2021 07/20/2021 1:56 PM PAINT LINE SUPERVISOR COVID-19 07/18/2021 07/18/2021 08/08/2021 11:3 9 PM PAINT LINE SUPERVISOR Rule Out COVID-19 12/18/2021 12/18/2021 12/19/2021 11:34 AM CDT Rule Out COVID-19 02/24/2022 02/24/2022 02/25/2022 1:08 PM CDT Rule Out COVID-19 04/26/2022 04/26/2022 04/26/2022 6:47 AM CDT Rule Out COVID-19 05/17/2022 05/17/2022 05/17/2022 10:20 PM PAINT LINE SUPERVISOR Rule Out COVID-19 06/09/2022 06/09/2022 06/09/2022 9:35 AM PAINT LINE SUPERVISOR COVID-19 06/09/2022 06/09/2022 06/30/2022 11:4 1 PM PAINT LINE SUPERVISOR Rule Out COVID-19 11/10/2022 11/10/2022 11/11/2022 [...] Total Score: 9 06/25/20 20 7:04 AM PAINT LINE SUPERVISOR documented as of this encounter Care Teams Report Manager Relationship Specialty Start Date End Date Marija Edgar APRN MEASUREMENT SUPERVISOR PCP - General Nurse Practitioner 04/30/20 04/14/23 Esha Grimm PA-C [address] [place] [address] PCP - General Family Medicine 05/04/23 Lita Oseguera Personal Advocate & Liaison (PAL) 02/28/20 03/27/23 Chanelle Mccann APRN CNM [address], [facility] [address] [place] [address] Assigned OBGYN Provider 05/02/2005/09 Kyara De La Fuente, RN Specialty Manager Progressive Care Neurology 06/04/20 03/05/21 Marija Edgar APRN MEASUREMENT SUPERVISOR Assigned PCP 06/08/20 04/29/23 Mynor Broussard MD [address] [place] [address] Assigned Surgical Provider 06/01/20 11/28/21 Keisha Dotson MD [address] [place] [address] Assigned Neuroscience Provider 06/04/20 04/01/23 Mary Mejia Financial Resource Worker 08/07/20 08/21/20 Stacey Briones, [facility] Lead Manager Progressive Care Primary Care - CC 08/11/20 12/30/20 Lesley Guillermo, [facility] Community Health Worker 08/11/20 10/01/20 Mary Mejia Financial Resource Worker 09/02/20 10/06/20 Lita Oseguera Personal Advocate & Liaison (PAL) Family Medicine 09/10/20 09/21/20 Galo Burrell MD Assigned Heart and Vascular Provider 10/05/20 04/02/22 Cristina Wood Financial Resource Worker 10/07/20 10/14/20 Lesley Guillermo, [facility] Community Health Worker 10/23/20 12/30/20 Meredith Bedoya Financial Resource Worker 10/23/20 11/23/20 Cristina Wood Financial Resource Worker 02/09/21 02/09/21 Diana Desir, [facility] [address] [place] [address] Pharmacist Pharmacist 04/17/21 Rain Galaviz PA-C [address] [place] [address] [address] [place], [place] [phone] Physician Application Specialist Dermatology 04/28/21 Summer Lara MD [address] [place] [address] 226334 Assigned OBGYN Provider 05/10/2105/23 Summer Lara MD [address] [place] [address] [phone] Assigned OBGYN Provider 05/31/21 2 Summer Lara MD [address] [place] [address] [phone] Assigned OBGYN Provider 05/24/2105/30 Tavia Wyatt MD [address] [place] [address] [phone] Dermatology 07/14/21 Johnny Murillo MD [address] [place] [address] Assigned Musculoskeletal Provider 08/30/21 03/17/22 Erica Farrell APRN MEASUREMENT SUPERVISOR [address] [facility] [address] [place] [address] Nurse Practitioner Cardiovascular Disease 09/09/21 Teresita Bean [facility] [address] [facility] [address] Pharmacist Pharmacist 09/24/21 09/29/21 Tavia Wyatt MD [address] [place] [address] Assigned Surgical Provider 11/29/21 05/07/22 [facility] [address] [place] [address] Assigned MTM Pharmacist 01/02/22 Rich Barrett MD [address] [place] [address] Physician Ophthalmology 01/21/22 Neil Kent MD [address] [place] [address] Dermatology 02/24/22 Roney Story DPM [address] [facility] [place], [place] [address]247 Assigned Musculoskeletal Provider 03/20/22 08/13/22 Erica Farrell APRN MEASUREMENT SUPERVISOR [address] [place] [address] Assigned Heart and Vascular Provider 04/03/22 04/16/22 Diana Desir, [facility] [address] [place] [address] Assigned MTM Pharmacist 04/07/22 Jelena David OD [address] [facility] [place] [address] Assigned Surgical Provider 05/08/22 10/08/22 Galo Burrell MD Assigned Heart and Vascular Provider 04/17/22 06/11/22 Livan Sharif MD [address] [place] [address] Cardiovascular Disease 05/14/22 Livan Sharif MD [address] [address] [place] [address] Assigned Heart and Vascular Provider 06/12/22 07/23/22 Catherine Cm MD [address] [address] [place] [phone] Cardiovascular Disease 07/21/22 Valery Veronica PA-C [address] [place] [address] Physician Application Specialist Dermatology 07/21/22 Catherine Cm MD [address] [address] [place] [address] Assigned Heart and Vascular Provider 07/24/22 11/05/22 Johnny Murillo MD [address] [place], [place] [address] [place] [address] Assigned Musculoskeletal Provider 08/14/22 10/08/22 Brea Quinn APRN MEASUREMENT SUPERVISOR [address] [place], [place] 8[address] Nurse Practitioner Dermatology 09/21/22 Brea Quinn APRN MEASUREMENT SUPERVISOR [address] [place], [place] [phone] Assigned Surgical Provider 10/09/22 05/01/24 [place] [address] [address] Assigned Musculoskeletal Provider 10/09/22 05/01/24 Livan Sharif MD [address] [facility] [address] [place] [address] Assigned Heart and Vascular Provider 11/06/22 11/12/22 Catherine Cm MD [address] [facility] [address] [place] [address] Assigned Heart and Vascular Provider 11/13/22 05/27/23 Sydnie Martinez RN Personal Advocate & Liaison (PAL) Family Medicine 03/28/23 07/31/23 Alfonso Renteria MD [address] [facility] 200 [place], [place] [address] Assigned Neuroscience Provider 04/02/23 09/29/24 Cheng Todd PA-C [address] [place] [address] [phone] Assigned PCP 04/30/23 07/15/23 Radha Lomeli APRN MEASUREMENT SUPERVISOR [address] [facility] [address] [place] [address] Assigned Heart and Vascular Provider 05/28/23 11/29/24 Jelena David OD [address] [facility] [address] [place] [phone] MD Ophthalmology 06/15/23 Pao Joseph, VJ Personal Advocate & Liaison (PAL) Nurse 08/01/23 11/07/23 Esha Grimm PA-C [address] [place] [phone] Assigned PCP 07/16/23 Valery Veronica PA-C [address] [place] [address] Physician Application Specialist Dermatology 09/19/23 Rey Tay MD [address] [place] [address] [phone] Gastroenterology 09/20/23 Rocky Zepeda DO [address] [place] [address] 011875 Physician Gastroenterology 09/20/23 Philip Dumont MD [address] [place] [address] 929215 Physician Ophthalmology 09/22/23 Meredith Carrera PA-C [address] [place], [place] 3728[address] Assigned Gastroenterology Provider 11/01/23 Neil Kent MD [address] [address] Dermatology 11/02/23 [place] [address] [place] [address] Neurological Surgery 12/26/23 Audrey Waite PA-C [address] [place], [place] 9601[address] Physician Application Specialist Dermatology 02/28/24 Valery Veronica PA-C 284433 [address], [place] [address] Physician Application Specialist Dermatology 04/10/24 Herminia Hatch MD [facility]5 [place], [place] [phone] Assigned Rheumatology Provider 07/02/24 Jelena David OD [address] [facility] [place] [address] Ophthalmology 08/30/24 [place] [address] [address] [place] [address] Assigned Neuroscience Provider 09/30/24 Maru Man PA-C [address] [place] [address] Physician Application Specialist Dermatology 10/03/24 Maru Man PA-C [address] [place] [address] Physician Application Specialist Dermatology 10/22/24 Jelena David OD [address] [facility] [place] [address] Assigned Surgical Provider 10/31/24 Fabiano Correa INDUSTRIAL MANUFACTURING TECHNICIAN [address] [facility] [place] [address] Assigned Heart and Vascular Provider 11/30/24 Walter Nowak MD [address] [place] [address] Physician Clinical Cardiac Electrophysiology 03/01/25 Liset Márquez MD [address] [address] passenger car conductor 03/13/25 Lauren Coronado, [facility] [address] [place] [address] Pharmacist Pharmacist 04/15/25 documented as of this encounter
--- OUTSIDE RECORDS SUMMARY | 2025-04-26 23:54 | XMS_ITS | Encounter Summary ---
Author Organization [facility] Address [address] [place] [address] Care Team Providers Care Yacht Builder Name Role Phone Lita Oseguera Unavailable Unavailable Marija Edgar APRN MANAGER ANIMAL Primary Care Provider + Marija Edgar APRN MANAGER ANIMAL Unavailable Keisha Dotson MD Unavailable Galo Burrell MD Unavailable Unavailable Diana Desir [facility] Unavailable Rain Galaviz PA-C Unavailable Summer Lara MD Unavailable [phone] Tavia Wyatt MD Unavailable Johnny Murillo MD Unavailable Erica Farrell APRN MANAGER ANIMAL Unavailable Tavia Wyatt MD Unavailable Diana Desir [facility] Unavailable Rich Barrett MD Unavailable [phone] Neil Kent MD Unavailable Roney Story DPM Unavailable Erica Farrell APRN MANAGER ANIMAL Unavailable Diana Desir [facility] Unavailable [phone] Jelena David OD Unavailable [phone] Galo Burrell MD Unavailable Unavailable HoLivan MD Unavailable Livan Sharif MD Unavailable IsCatherine hobbs MD Unavailable + Valery Veronica PA-C Unavailable [phone] Catherine Cm MD Unavailable + Johnny Murillo MD Unavailable [phone] Brea Quinn MARINE SAFETY OFFICER MANAGER ANIMAL Unavailable [phone] Brea Quinn MARINE SAFETY OFFICER MANAGER ANIMAL Unavailable [phone] Jose Francisco Johnson MD Unavailable Livan Sharif MD Unavailable + IsCatherine boothe MD Unavailable + Sydnie Martinez RN Unavailable Unavailable Alfonso Renteria MD Unavailable Esha Grimm PA-C Primary Care Provider Cheng Todd PA-C Unavailable Radha Lomeli MARINE SAFETY OFFICER MANAGER ANIMAL Unavailable [phone] Jelena David OD Unavailable Pao Joseph RN Unavailable Unavailable Esha Grimm PA-C Unavailable [phone] Valery Veronica PA-C Unavailable [phone] Rey Tay MD Unavailable Rocky Zepeda DO Unavailable Philip Dumont MD Unavailable [phone] Meredith Carrera PA-C Unavailable [phone] Neil Kent MD Unavailable Juan Pablo Emmanuel MD Unavailable [phone] Audrey Waite PA-C Unavailable [phone] Valery Veronica PA-C Unavailable Herminia Hatch MD Unavailable Jelena David OD Unavailable Juan Pablo Emmanuel MD Unavailable [phone] Maru ManC Unavailable [phone] Maru ManC Unavailable [phone] Jelena David OD Unavailable Fabiano Correa NP Unavailable [phone] Walter Nowak MD Unavailable Liset Márquez MD Unavailable Lauren Coronado [facility] Unavailable [phone] Encounter Details Date Type Department Care Team (Late st Contact Info) Description 12/03/2021 MyC Medical Advice [address] [address] Debbie Hdez MA Social History [...] How often do you attend scientologist or uatsdin serv ices? Never 09/22/2021 Do [...] in a jail (including now)? No 09/22/2021 Kaleva Depression Scale Answer Date Recorded Kaleva Depression Score 5 01/14/2021 Last EPDS Self Harm Result Not on file 01/14 Education Answer Date Recorded What is the highest level of school you have completed or the highest degree you have received? 12th grade 08/07/2020 Comments No Sex and Gender Information Value Date Recorded Sex Assigned at Female 03/02/2021 5:45 PM CDT Legal Sex Female 4:13 AM CLINIC ASSISTANT Gender Identity Female 03/02/2021 5:45 PM [...] Description 04/30/2025 10:30 AM CDT Office Visit [facility] [address], [address] [place] [phone] Liset Márquez MD [address] [place] [address] 05/30/2025 2:45 PM CLINIC ASSISTANT Office Visit [facility] Heart [facility] [address] [facility] [address] [place] [phone] Fabiano Correa, BRYCE 6405 [place], [place] [phone] Walter Nowak MD 2905 [facility] [place] [place] 9[address] 08/07/2025 8:15 AM CLINIC ASSISTANT Office Visit [facility] Heart [facility] [address] [place] [phone] Lucien Grimes MD [address] [place] [place] [phone] [place], [place] 393935 08/21/2025 9:00 AM CLINIC ASSISTANT Office Visit [facility] [address] [phone] Neil Kent MD [address] [place] [address] [phone] 10/09/2025 10:45 AM CDT Virtual Visit [facility] [address] [place] [address] 4th [place] [phone] Meredith Carrera PA-C [address] [place] [address] 446995 documented as of this encounter Visit Diagnoses Not on filedocumented in this encounter Additional Health Concerns Infection Onset Date Last Indicated Resolved Time Rule Out COVID-19 12/18/2021 12/18/2021 12/19/2021 11:34 AM CDT Rule Out COVID-19 02/24/2022 02/24/2022 02/25/2022 1:08 PM CDT Rule Out COVID-19 04/26/2022 04/26/2022 04/26/2022 6:47 AM CDT Rule Out COVID-19 05/17/2022 05/17/2022 05/17/2022 10:20 PM CLINIC ASSISTANT Rule Out COVID-19 06/09/2022 06/09/2022 06/09/2022 9:35 AM CLINIC ASSISTANT COVID-19 06/09/2022 06/09/2022 06/30/2022 11:4 1 PM CLINIC ASSISTANT Rule Out COVID-19 11/10/2022 11/10/2022 [...] documented as of this encounter Care Teams Yacht Builder Relationship Specialty Start Date End Date Marija Edgar APRN CNP PCP - General Nurse Practitioner 04/30/20 04/14/23 Esha Grimm PA-C [address] [place] [address] PCP - General Family Medicine 05/04/23 Lita Oseguera Personal Advocate & Liaison (PAL) 02/28/20 03/27/23 Marija Edgar APRN MANAGER ANIMAL Assigned PCP 06/08/20 04/29/23 Keisha Dotson MD 909 [place], [place] [address]1965 Assigned Neuroscience Provider 06/04/20 04/01/23 Galo Burrell MD Assigned Heart and Vascular Provider 10/05/20 04/02/22 [facility] [address] [place] [address] Pharmacist Pharmacist 04/17/21 Rain Galaviz PA-C [address] [place] [address] [place] [address] Physician Community Service Director Dermatology 04/28/21 Summer Lara MD [address] [place] [address] [phone] Assigned OBGYN Provider 05/31/21 2 Tavia Wyatt MD [address] [place] [address] 690714 Dermatology 07/14/21 Johnny Murillo MD [facility] [address] [address] Assigned Musculoskeletal Provider 08/30/21 03/17/22 Erica Farrell APRN MANAGER ANIMAL [address] [facility] [address] [place] [address] Nurse Practitioner Cardiovascular Disease 09/09/21 Tavia Wyatt MD [address] [place] [address] Assigned Surgical Provider 11/29/21 05/07/22 Diana Desir [facility] [address] [place] [address] Assigned MTM Pharmacist 01/02/22 Rich Barrett MD [address] [place] [address] Physician Ophthalmology 01/21/22 Neil Kent MD 500 [place] [address] Dermatology 02/24/22 Roney Story DPM [address] [facility] [address] [place] [address] Assigned Musculoskeletal Provider 03/20/22 08/13/22 Erica Farrell APRN MANAGER ANIMAL 1700 [place] [address] Assigned Heart and Vascular Provider 04/03/22 04/16/22 Diana Desir [facility] [address] [place] [address] Assigned MTM Pharmacist 04/07/22 Jelena David OD [address] [facility] [place] [address] Assigned Surgical Provider 05/08/22 10/08/22 Galo Burrell MD Assigned Heart and Vascular Provider 04/17/22 06/11/22 Livan Sharif MD [address] [place] 443835 Cardiovascular Disease 05/14/22 Livan Sharif MD [address] [place] 874295 Assigned Heart and Vascular Provider 06/12/22 07/23/22 Catherine Cm MD [address] [place] 962095 Cardiovascular Disease 07/21/22 Valery Veronica, PA-C 909 [place] [address] Physician Community Service Director Dermatology 07/21/22 Catherine Cm MD [address] [place] 148705 Assigned Heart and Vascular Provider 07/24/22 11/05/22 Johnny Murillo MD [address] [facility] [address] [place] [address] Assigned Musculoskeletal Provider 08/14/22 10/08/22 Brea Quinn APRN MANAGER ANIMAL 500 [place], [place] 905695 Nurse Practitioner Dermatology 09/21/22 Brea Quinn APRN MANAGER ANIMAL 6401 [facility] [place] 165402 Assigned Surgical Provider 10/09/22 05/01/24 [place] [address] [facility] 300 [place] [address] Assigned Musculoskeletal Provider 10/09/22 05/01/24 Livan Sharif MD 6405 [facility] [address] [place] [address] Assigned Heart and Vascular Provider 11/06/22 11/12/22 Catherine Cm MD 6405 [facility] [address] [place] [address] Assigned Heart and Vascular Provider 11/13/22 05/27/23 Sydnie Martinez RN Personal Advocate & Liaison (PAL) Family Medicine 03/28/23 07/31/23 Alfonso Renteria MD 5775 [facility] 200 [place], [place] 698126 Assigned Neuroscience Provider 04/02/23 09/29/24 Cheng Todd PA-C [address] [place] [address] Assigned PCP 04/30/23 07/15/23 Radha Lomeli APRN MANAGER ANIMAL [address] [facility] [address] [place], [place] 177565 Assigned Heart and Vascular Provider 05/28/23 11/29/24 Jelena David OD [address] [facility] [address] [place] [id number] MD Ophthalmology 06/15/23 Pao Joseph, VJ Personal Advocate & Liaison (PAL) Nurse 08/01/23 11/07/23 Esha Grimm PA-C [address] [place] [phone] Assigned PCP 07/16/23 Valery Veronica PA-C [address] [place] [address] 169845 Physician Community Service Director Dermatology 09/19/23 Rey Tay MD [address] [place] [address] 603795 Gastroenterology 09/20/23 Rocky Zepeda DO [address] [place] [address] 534475 Physician Gastroenterology 09/20/23 Philip Dumont MD [address] [place] [address] 989565 Physician Ophthalmology 09/22/23 Meredith Carrera PA-C [address] [place] [address] 730115 Assigned Gastroenterology Provider 11/01/23 Neil Kent MD [address] [place] [address] MD Dermatology 11/02/23 [place] [address] [place] [address] Neurological Surgery 12/26/23 Audrey Waite PA-C 500 [place] [address] Physician Community Service Director Dermatology 02/28/24 Valery Veronica PA-C 879367 [place] [address] Physician Community Service Director Dermatology 04/10/24 Herminia Hatch MD [address] [place] [address] [phone] Assigned Rheumatology Provider 07/02/24 Jelena David OD [address] [place] [address] [place] [address] Ophthalmology 08/30/24 [place] [address] [place] [address] Assigned Neuroscience Provider 09/30/24 Maru Man PA-C [address] [place] [address] Physician Community Service Director Dermatology 10/03/24 Maru Man PA-C [address] [place] [address] Physician Community Service Director Dermatology 10/22/24 Jelena David OD [address] [facility] [place] [address] Assigned Surgical Provider 10/31/24 Fabiano Correa NP 6405 [facility] [place] [address] Assigned Heart and Vascular Provider 11/30/24 Walter Nowak MD [address] [place] [address] Physician Clinical Cardiac Electrophysiology 03/01/25 Liset Márquez MD [address] [address] extension service supervisor 03/13/25 Lauren Coronado, [facility] 909 [place] [address] Pharmacist Pharmacist 04/15/25 documented as of this encounter
--- OUTSIDE RECORDS SUMMARY | 2025-04-26 23:54 | XMS_ITS | Encounter Summary ---
Author Organization [facility] Address [address] [place] [address] Care Team Providers Care Helpdesk Analyst Name Role Phone Lita Oseguera Unavailable Unavailable Marija Edgar APRN EXCEPTIONAL CHILDREN'S TEACHER Primary Care Provider + Marija Edgar APRN EXCEPTIONAL CHILDREN'S TEACHER Unavailable Keisha Dotson MD Unavailable Galo Burrell MD Unavailable Unavailable Diana Desir [facility] Unavailable Rain Galaviz PA-C Unavailable Summer Lara MD Unavailable [phone] Tavia Wyatt MD Unavailable Johnny Murillo MD Unavailable Erica Farrell APRN EXCEPTIONAL CHILDREN'S TEACHER Unavailable Tavia Wyatt MD Unavailable Diana Desir [facility] Unavailable Rich Barrett MD Unavailable [phone] Neil Kent MD Unavailable Roney Story DPM Unavailable Erica Farrell APRN EXCEPTIONAL CHILDREN'S TEACHER Unavailable Diana Desir [facility] Unavailable [phone] Jelena David OD Unavailable [phone] Galo Burrell MD Unavailable Unavailable HoLivan MD Unavailable Livan Sharif MD Unavailable IsCatheirne hobbs MD Unavailable + Valery Veronica PA-C Unavailable [phone] Catherine Cm MD Unavailable + Johnny Murillo MD Unavailable [phone] rBea Quinn BOTTLE CAPPER EXCEPTIONAL CHILDREN'S TEACHER Unavailable [phone] Brea Quinn BOTTLE CAPPER EXCEPTIONAL CHILDREN'S TEACHER Unavailable [phone] Jose Francisco Johnson MD Unavailable Livan Sharif MD Unavailable + IsCatherine boothe MD Unavailable + Sydnie Martinez RN Unavailable Unavailable Alfonso Renteria MD Unavailable Esha Grimm PA-C Primary Care Provider Cheng Todd PA-C Unavailable Radha Lomeli BOTTLE CAPPER EXCEPTIONAL CHILDREN'S TEACHER Unavailable [phone] Jelena David OD Unavailable Pao Joseph RN Unavailable Unavailable Esha Grimm PA-C Unavailable [phone] Valery Veronica PA-C Unavailable [phone] Rey Tay MD Unavailable Rocky Zepeda DO Unavailable Philip Dumont MD Unavailable [phone] Meredith Carrera PA-C Unavailable [phone] Neil Kent MD Unavailable Juan Pablo Emmanuel MD Unavailable [phone] Audrey Waite PA-C Unavailable Valery Veronica PA-C Unavailable Herminia Hatch MD Unavailable Jelena David OD Unavailable [phone] Juan Pablo Emmanuel MD Unavailable [phone] Maru ManC Unavailable Maru ManC Unavailable [phone] Jelena David OD Unavailable [phone] Fabiano Correa NP Unavailable Walter Nowak MD Unavailable Liset Márquez MD Unavailable Lauren Coronado [facility] Unavailable [phone] Encounter Details Date Type Department Care Team (Late st Contact Info) Description 12/03/2021 MyC Medical Advice [facility] 5775 [facility] [address] [place] [address] Keisha Dotson MD 9 [place] [address] Social History Tobacco Use Types [...] How often do you attend anglican or evangelical serv ices? Never 09/22/2021 Do [...] Answer Date Recorded PHQ-2 Score 2 09/22/2021 [facility] of Occupat ional Health - Occupational Stress [...] in a mcc (including now)? No 09/22/2021 [place] Depression Scale Answer Date Recorded [place] [...] CDT Legal Sex Female 4:13 AM COMMUNITY DEVELOPMENT WORKER Gender Identity Female 03/02/2021 5:45 PM [...] Description 04/30/2025 10:30 AM CDT Office Visit [facility] [address], [address] [place] [phone] Liset Márquez MD [address] [facility] 300 [place] [address] 05/30/2025 2:45 PM COMMUNITY DEVELOPMENT WORKER Office Visit [facility] Heart [facility] [address] [phone] Fabiano [place], WIRE STITCHER OPERATOR 7615 [place], [place] 8[address] Walter Nowak MD 1676 [place], [place] 637515 08/07/2025 8:15 AM COMMUNITY DEVELOPMENT WORKER Office Visit [facility] Heart [facility] [address] [phone] Lucien Grimes MD [address] 453575 08/21/2025 9:00 AM COMMUNITY DEVELOPMENT WORKER Office Visit [facility] [address] [phone] Neil Kent MD 500 [place], [place] 60540[address] 10/09/2025 10:45 AM CDT Virtual Visit [facility] [place] 909 [facility] 4th [place] [phone] Meredith Carrera PA-C [address] [place] [address] documented as of this encounter Visit Diagnoses Not on filedocumented in this encounter Additional Health Concerns Infection Onset Date Last Indicated Resolved Time Rule Out COVID-19 12/18/2021 12/18/2021 12/19/2021 11:34 AM CDT Rule Out COVID-19 02/24/2022 02/24/2022 02/25/2022 1:08 PM CDT Rule Out COVID-19 04/26/2022 04/26/2022 04/26/2022 6:47 AM CDT Rule Out COVID-19 05/17/2022 05/17/2022 05/17/2022 10:20 PM COMMUNITY DEVELOPMENT WORKER Rule Out COVID-19 06/09/2022 06/09/2022 06/09/2022 9:35 AM COMMUNITY DEVELOPMENT WORKER COVID-19 06/09/2022 06/09/2022 06/30/2022 11:4 1 PM COMMUNITY DEVELOPMENT WORKER Rule Out COVID-19 11/10/2022 11/10/2022 11/11/2022 [...] documented as of this encounter Care Teams Helpdesk Analyst Relationship Specialty Start Date End Date Marija Edgar APRN EXCEPTIONAL CHILDREN'S TEACHER PCP - General Nurse Practitioner 04/30/20 04/14/23 Esha Grimm PA-C [address] [place] [phone] PCP - General Family Medicine 05/04/23 Lita Oseguera Personal Advocate & Liaison (PAL) 02/28/20 03/27/23 Marija Edgar APRN EXCEPTIONAL CHILDREN'S TEACHER Assigned PCP 06/08/20 04/29/23 Keisha Dotson MD 909 [place], [place] 408[address] Assigned Neuroscience Provider 06/04/20 04/01/23 Galo Burrell MD Assigned Heart and Vascular Provider 10/05/20 04/02/22 [facility] [address] [place], [place] 639836 Pharmacist Pharmacist 04/17/21 Rain Galaviz PA-C [address] [place] [address] [place] [address] Physician Deputy County Attorney Dermatology 04/28/21 Summer Lara MD [address] [place], [place] 684924 Assigned OBGYN Provider 05/31/21 2 Tavia Waytt MD [address] [place], [place] [phone] Dermatology 07/14/21 Johnny Murillo MD [address] [facility] [address] [place] [address] Assigned Musculoskeletal Provider 08/30/21 03/17/22 Erica Farrell APRN EXCEPTIONAL CHILDREN'S TEACHER 6405 [facility] [address] [place], [place] 287885 Nurse Practitioner Cardiovascular Disease 09/09/21 Tavia Wyatt MD [address] [place], [place] 506790 Assigned Surgical Provider 11/29/21 05/07/22 [facility] 3033 [place] [address] Assigned MTM Pharmacist 01/02/22 Rich Barrett MD [facility] [place] [address] Physician Ophthalmology 01/21/22 Neil Kent MD 500 [place], [place] 240445 Dermatology 02/24/22 Roney Story DPM 22825 [facility] 300 [place], [place] 001577 Assigned Musculoskeletal Provider 03/20/22 08/13/22 Erica Farrell APRN EXCEPTIONAL CHILDREN'S TEACHER 1700 [place] [address] Assigned Heart and Vascular Provider 04/03/22 04/16/22 Diana Desir, [facility] 3033 [place], [place] 841676 Assigned MTM Pharmacist 04/07/22 Jelena David OD [address] [facility] [address] Assigned Surgical Provider 05/08/22 10/08/22 Galo Burrell MD Assigned Heart and Vascular Provider 04/17/22 06/11/22 Livan Sharif MD [address] [place], [place] 8[address] Cardiovascular Disease 05/14/22 Livan Sharif MD [address] [place] [address] Assigned Heart and Vascular Provider 06/12/22 07/23/22 Catherine Cm MD [address] [place], [place] 497[address] Cardiovascular Disease 07/21/22 Valery Veronica, PA-C 909 [place] [address] Physician Deputy County Attorney Dermatology 07/21/22 Catherine Cm MD [address] [place] [address] Assigned Heart and Vascular Provider 07/24/22 11/05/22 Johnny Murillo MD [address] [place] [address] Assigned Musculoskeletal Provider 08/14/22 10/08/22 Brea Quinn APRN EXCEPTIONAL CHILDREN'S TEACHER 500 [facility] [place] [address] Nurse Practitioner Dermatology 09/21/22 Brea Quinn APRN EXCEPTIONAL CHILDREN'S TEACHER 6401 [facility] [place] 486212 Assigned Surgical Provider 10/09/22 05/01/24 [place] [address] [facility] 300 [place] [address] Assigned Musculoskeletal Provider 10/09/22 05/01/24 Livan Sharif MD 6405 [facility] [address] [place] [address] Assigned Heart and Vascular Provider 11/06/22 11/12/22 Catherine Cm MD 6405 [facility] [address] [place] 054715 Assigned Heart and Vascular Provider 11/13/22 05/27/23 Sydnie Martinez RN Personal Advocate & Liaison (PAL) Family Medicine 03/28/23 07/31/23 Alfonso Renteria MD 5775 [facility] 200 [place] [address] Assigned Neuroscience Provider 04/02/23 09/29/24 Cheng Todd PA-C [address] [place] [address] Assigned PCP 04/30/23 07/15/23 Lomeli Radha ARLENE Stovall EXCEPTIONAL CHILDREN'S TEACHER 6405 [facility] [address] [place] [address] Assigned Heart and Vascular Provider 05/28/23 11/29/24 Jelena David OD [address] [facility] [place] [address] Ophthalmology 06/15/23 Pao Joseph, VJ Personal Advocate & Liaison (PAL) Nurse 08/01/23 11/07/23 Esha Grimm PA-C [address] [place] [phone] Assigned PCP 07/16/23 Valery Veronica PA-C [address] [place] [address] 922155 Physician Deputy County Attorney Dermatology 09/19/23 Rey Tay MD [address] [place] [address] 799915 Gastroenterology 09/20/23 Rocky Zepeda DO [address] [place] [address] 907225 Physician Gastroenterology 09/20/23 Philip Dumont MD [address] [place] [address] 358615 Physician Ophthalmology 09/22/23 Meredith Carrera PA-C 909 [place] [address] Assigned Gastroenterology Provider 11/01/23 Neil Kent MD [address] [place] [address] Dermatology 11/02/23 [place] [address] [place] [address] Neurological Surgery 12/26/23 Audrey Waite PA-C [address] [place] [address] Physician Deputy County Attorney Dermatology 02/28/24 Valery Veronica PA-C 155421 [place], [place] [address] Physician Deputy County Attorney Dermatology 04/10/24 Herminia Hatch MD [facility] [place], [place] 03331125 Assigned Rheumatology Provider 07/02/24 Jelena David OD [address] [place] [address] [place] [address] Ophthalmology 08/30/24 [place] [address] [place] [address] Assigned Neuroscience Provider 09/30/24 Maru Man PA-C [address] [place] [address] Physician Deputy County Attorney Dermatology 10/03/24 Maru Man PA-C [address] [place] [address] Physician Deputy County Attorney Dermatology 10/22/24 Jelena David OD [address] [facility] [address] Assigned Surgical Provider 10/31/24 Fabiano Correa NP [address] [place] [address] Assigned Heart and Vascular Provider 11/30/24 Walter Nowak MD [address] [place] [address] Physician Clinical Cardiac Electrophysiology 03/01/25 Liset Márquez MD [address] [place] [address] medical supervisor 03/13/25 Lauren Coronado, [facility] [address] [place] [address] [phone] Pharmacist Pharmacist 04/15/25 documented as of this encounter
--- OUTSIDE RECORDS SUMMARY | 2025-04-26 23:54 | XMS_ITS | Encounter Summary ---
Author Organization [facility] Address [address] [place] [address] Care Team Providers Care Carpenter Inspector Name Role Phone Lita Oseguera Unavailable Unavailable Marija Edgar APRN POISER Primary Care Provider + Marija Edgar APRN POISER Unavailable Keisha Dotson MD Unavailable Galo Burrell MD Unavailable Unavailable Diana Desir [facility] Unavailable Rain Galaviz PA-C Unavailable Summer Lara MD Unavailable [phone] Tavia Wyatt MD Unavailable Johnny Murillo MD Unavailable Erica Farrell APRN POISER Unavailable Tavia Wyatt MD Unavailable Diana Desir [facility] Unavailable Rich Barrett MD Unavailable [phone] Neil [place] MD Unavailable Roney Story DPM Unavailable Erica Farrell APRN POISER Unavailable Diana Desir [facility] Unavailable [phone] Jelena David OD Unavailable [phone] Galo Burrell MD Unavailable Unavailable HoLivan MD Unavailable Livan Sharif MD Unavailable IsCatherine hobbs MD Unavailable + Valery Veronica PA-C Unavailable [phone] Catherine Cm MD Unavailable + Johnny Murillo MD Unavailable [phone] Brea Quinn COMPUTER LABORATORY TECHNICIAN POISER Unavailable [phone] Brea Quinn COMPUTER LABORATORY TECHNICIAN POISER Unavailable [phone] Jose Francisco Johnson MD Unavailable Livan Sharif MD Unavailable + IsCatherine boothe MD Unavailable + Sydnie Martinez RN Unavailable Unavailable Alfonso Renteria MD Unavailable Esha Grimm PA-C Primary Care Provider Cheng Todd PA-C Unavailable Radha Lomeli COMPUTER LABORATORY TECHNICIAN POISER Unavailable [phone] Jelena David OD Unavailable Pao Joseph RN Unavailable Unavailable Esha Grimm PA-C Unavailable Valery Veronica PA-C Unavailable [phone] Rey Tay MD Unavailable Rocky Zepeda DO Unavailable Philip Dumont MD Unavailable [phone] Meredith Carrera PA-C Unavailable [phone] Neil [place] MD Unavailable Juan Pablo Emmanuel MD Unavailable [phone] Audrey Waite PA-C Unavailable [phone] Valery Veronica PA-C Unavailable Herminia Hatch MD Unavailable Jelena David OD Unavailable Juan Pablo Emmanuel MD Unavailable Maru Man PA-C Unavailable [phone] Maru Man PA-C Unavailable [phone] Jelena David OD Unavailable [phone] Fabiano Correa NP Unavailable Walter Nowak MD Unavailable Liset Márquez MD Unavailable Lauren Coronado [facility] Unavailable [phone] Encounter Details Date Type Department Care Team (Late st Contact Info) Description 01/22/2022 [facility] Medical Advice [address] [address] Diana Desir, [facility] [address] [place] [address] Social History Tobacco Use [...] How often do you attend buddhist or bahai serv ices? Never 09/22/2021 Do [...] Answer Date Recorded PHQ-2 Score 2 12/18/2021 [facility] [place] of Occupat ional Health - Occupational Stress [...] a senior care (including now)? No 09/22/2021 [place] Depression Scale Answer Date Recorded [place] Depression Score 5 01/14/2021 Last EPDS [...] Description 04/30/2025 10:30 AM CDT Office Visit [facility] [address], [address] [place] [phone] Liset Márquez MD [address] [facility] 300 [place] [address] 05/30/2025 2:45 PM LPN INSTRUCTOR Office Visit [facility] Heart [facility] [address] [facility] [address] [place] [phone] Fabiano Correa, PRIMARY MILL ROLLER 6405 [place], [place] 711875 Walter Nowak MD 0440 [place], [place] [address]115 08/07/2025 8:15 AM LPN INSTRUCTOR Office Visit [facility] Heart [facility] [address] [phone] Lucien Grimes MD [address] 237615 08/21/2025 9:00 AM LPN INSTRUCTOR Office Visit [address] [phone] Neil [place] MD [address] [place] [address] [phone] 10/09/2025 10:45 AM CDT Virtual Visit [facility] [address] 4th [place] [phone] Meredith Carrera PA-C [address] [place] [address] 800345 documented as of this encounter Visit Diagnoses Not on filedocumented in this encounter Additional Health Concerns Infection Onset Date Last Indicated Resolved Time Rule Out COVID-19 02/24/2022 02/24/2022 02/25/2022 1:08 PM CDT Rule Out COVID-19 04/26/2022 04/26/2022 04/26/2022 6:47 AM CDT Rule Out COVID-19 05/17/2022 05/17/2022 05/17/2022 10:20 PM LPN INSTRUCTOR Rule Out COVID-19 06/09/2022 06/09/2022 06/09/2022 9:35 AM LPN INSTRUCTOR COVID-19 06/09/2022 06/09/2022 06/30/2022 11:4 1 PM LPN INSTRUCTOR Rule Out COVID-19 11/10/2022 11/10/2022 11/11/2022 [...] as of this encounter Care Teams Carpenter Inspector Relationship Specialty Start Date End Date Marija Edgar APRN CNP PCP - General Nurse Practitioner 04/30/20 04/14/23 Esha Grimm PA-C [address] [place] [phone] PCP - General Family Medicine 05/04/23 Lita Oseguera Personal Advocate & Liaison (PAL) 02/28/20 03/27/23 Marija Edgar APRN POISER Assigned PCP 06/08/20 04/29/23 Keisha Dotson MD 909 [place], [place] 0[address] Assigned Neuroscience Provider 06/04/20 04/01/23 Galo Burrell MD Assigned Heart and Vascular Provider 10/05/20 04/02/22 [facility] [address] [place] [address] Pharmacist Pharmacist 04/17/21 Rain Galaviz PA-C [address] [place] [address] [place] [address] Physician Siebel Consultant Dermatology 04/28/21 Summer Lara MD [address] [place] [address] 418954 Assigned OBGYN Provider 05/31/21 2 Tavia Wyatt MD [address] [place] [address] 726574 Dermatology 07/14/21 Johnny Murillo MD [facility] [address] [address] Assigned Musculoskeletal Provider 08/30/21 03/17/22 Erica Farrell APRN POISER 6405 [facility] [address] [place] [address] Nurse Practitioner Cardiovascular Disease 09/09/21 Tavia Wyatt MD [address] [place] [address] Assigned Surgical Provider 11/29/21 05/07/22 Diana Desir [facility] [place] [address] Assigned MTM Pharmacist 01/02/22 Rich Barrett MD [address] [place] [place] [address] Physician Ophthalmology 01/21/22 Neil [place] MD 500 [place] [address] Dermatology 02/24/22 [place] [address] [facility] [address] [place] [address] Assigned Musculoskeletal Provider 03/20/22 08/13/22 Erica Farrell APRN POISER 1700 [place] [address] Assigned Heart and Vascular Provider 04/03/22 04/16/22 Diana Desir [facility] [place] [address] Assigned MTM Pharmacist 04/07/22 [place] David [place] 3305 [facility] [place] [address] Assigned Surgical Provider 05/08/22 10/08/22 Galo Burrell MD Assigned Heart and Vascular Provider 04/17/22 06/11/22 Livan Sharif MD [address] [address] [place] 556[address] Cardiovascular Disease 05/14/22 Livan Sharif MD [address] [place] [address] [place] 597605 Assigned Heart and Vascular Provider 06/12/22 07/23/22 Catherine Cm MD [address] [address] [place] 844165 Cardiovascular Disease 07/21/22 Valery Veronica, PA-C 909 [place], [place] 387455 Physician Siebel Consultant Dermatology 07/21/22 Catherine Cm MD [address] [address] [place] 813215 Assigned Heart and Vascular Provider 07/24/22 11/05/22 Johnny Murillo MD [facility] S [facility] [address] [place] [address] 734464 Assigned Musculoskeletal Provider 08/14/22 10/08/22 Brea Quinn APRN POISER 500 [place] [address] Nurse Practitioner Dermatology 09/21/22 Brea Quinn APRN POISER 6401 [place] [address] Assigned Surgical Provider 10/09/22 05/01/24 [place] [address] [facility] 300 [place] [address] Assigned Musculoskeletal Provider 10/09/22 05/01/24 Livan Sharif MD 6405 [facility] [address] [place] [address] Assigned Heart and Vascular Provider 11/06/22 11/12/22 Catherine Cm MD 6405 [facility] [address] [place] [address] Assigned Heart and Vascular Provider 11/13/22 05/27/23 Sydnie Martinez RN Personal Advocate & Liaison (PAL) Family Medicine 03/28/23 07/31/23 Alfonso Renteria MD 5775 [facility] 200 [place], [place] 772166 Assigned Neuroscience Provider 04/02/23 09/29/24 Cheng Todd PA-C [address] [place] [address] Assigned PCP 04/30/23 07/15/23 Radha Lomeli APRN POISER 6405 [facility] [place] [address] [place], [place] 143925 Assigned Heart and Vascular Provider 05/28/23 11/29/24 [place] David OD 3[address] [facility] [place] [address] MD Ophthalmology 06/15/23 Pao Joseph, VJ Personal Advocate & Liaison (PAL) Nurse 08/01/23 11/07/23 Esha Grimm PA-C [address] [place] [phone] Assigned PCP 07/16/23 Valery Veronica PA-C [address] [place] [address] 286405 Physician Siebel Consultant Dermatology 09/19/23 Rey Tay MD [address] [place] [address] 664745 MD Gastroenterology 09/20/23 Rocky Zepeda DO [address] [place] [address] 800905 Physician Gastroenterology 09/20/23 Philip Dumont MD [address] [place] [address] 752665 Physician Ophthalmology 09/22/23 Meredith Carrera PA-C [address] [place] [address] 428495 Assigned Gastroenterology Provider 11/01/23 Neil [place] MD [address] [place] [address] MD Dermatology 11/02/23 [place] [address] [place] [address] Neurological Surgery 12/26/23 Audrey Waite PA-C [address] [place] [address] Physician Siebel Consultant Dermatology 02/28/24 Valery Veronica PA-C 989618 [place] [address] Physician Siebel Consultant Dermatology 04/10/24 Herminia Hatch MD [address] [place] [address] [phone] Assigned Rheumatology Provider 07/02/24 Jelena David OD [address] [place] [address] [place] [address] Ophthalmology 08/30/24 [place] [address] [place] [address] Assigned Neuroscience Provider 09/30/24 Maru Man PA-C [address] [place] [address] Physician Siebel Consultant Dermatology 10/03/24 Maru Man PA-C [address] [place] [address] Physician Siebel Consultant Dermatology 10/22/24 [place] David OD [address] [facility] [place] [address] Assigned Surgical Provider 10/31/24 Fabiano Correa, BRYCE [address] [place] 208625 Assigned Heart and Vascular Provider 11/30/24 Walter Nowak MD [address] [place] 217305 Physician Clinical Cardiac Electrophysiology 03/01/25 Liset Márquez MD [address] [address] sole sewer hand 03/13/25 Lauren Coronado, [facility] 909 [place], [place] 958035 Pharmacist Pharmacist 04/15/25 documented as of this encounter
--- OUTSIDE RECORDS SUMMARY | 2025-04-26 23:54 | XMS_ITS | Encounter Summary ---
Author Organization [facility] Address [address] [place] [address] Care Team Providers Care Storage Engineer Name Role Phone Lita Oseguera Unavailable Unavailable Marija Edgar APRN NEURORADIOLOGIST Primary Care Provider + Marija Edgar APRN NEURORADIOLOGIST Unavailable [phone] Mynor Broussard MD Unavailable Keisha Dotson MD Unavailable Galo Burrell MD Unavailable Unavailable Diana Desir [facility] Unavailable Rain Galaviz PA-C Unavailable Summer Lara MD Unavailable [phone] Tavia Wyatt MD Unavailable Johnny Murillo MD Unavailable Erica Farrell APRN NEURORADIOLOGIST Unavailable Tavia Wyatt MD Unavailable Diana Desir [facility] Unavailable [phone] Rich Barrett MD Unavailable [phone] Neil [place] MD Unavailable Roney StoryM Unavailable Erica aFrrell VARIETY PERFORMER NEURORADIOLOGIST Unavailable Diana Desir [facility] Unavailable [phone] Jelena David OD Unavailable Galo Burrell MD Unavailable Unavailable Livan Sharif MD Unavailable Livan Sharif MD Unavailable Catherine Cm MD Unavailable + Valery Veronica PA-C Unavailable [phone] Catherine Cm MD Unavailable + Johnny Murillo MD Unavailable [phone] Brea Quinn VARIETY PERFORMER NEURORADIOLOGIST Unavailable [phone] Brea Quinn VARIETY PERFORMER NEURORADIOLOGIST Unavailable [phone] Jose Francisco Johnson MD Unavailable Livan Sharif MD Unavailable + IsCatherine hobbs MD Unavailable + Sydnie Martinez RN Unavailable Unavailable Alfonso Renteria MD Unavailable Esha Grimm PA-C Primary Care Provider Cheng Todd PA-C Unavailable Radha Lomeli VARIETY PERFORMER NEURORADIOLOGIST Unavailable [phone] Jelena David OD Unavailable [phone] Pao Joseph RN Unavailable Unavailable Esha Grimm PA-C Unavailable [phone] Valery Veronica PA-C Unavailable [phone] Rey Tay MD Unavailable Rocky Zepeda DO Unavailable Philip Dumont MD Unavailable Meredith Carrera PA-C Unavailable Neil [place] MD Unavailable Juan Pablo Emmanuel MD Unavailable Audrey Waite PA-C Unavailable Valery Veronica PA-C Unavailable Herminia Hatch MD Unavailable Jelena David OD Unavailable Juan Pablo Emmanuel MD Unavailable Maru Man-C Unavailable [phone] Maru Man-C Unavailable Jelena David OD Unavailable Fabiano Correa NP Unavailable Walter Nowak MD Unavailable Liset Márquez MD Unavailable Lauren Coronado [facility] Unavailable Reason for Visit * Reason Onset Date Comments Refill Request 10/31/2021 sertraline Encounter Details Date Type Department Care Team (Late st Contact Info) Description 10/31/[address] [address] Marija Edgar APRN NEURORADIOLOGIST [address] [place] [address] Refill Request (sertraline) Social History [...] How often do you attend nondenominational or pentecostalism serv ices? Never 09/22/2021 Do [...] Answer Date Recorded PHQ-2 Score 2 09/22/2021 [facility] [place] of Occupat ional Health - Occupational Stress [...] in a mcfp (including now)? No 09/22/2021 [place] Depression Scale Answer Date Recorded [place] Depression Score 5 01/14/2021 Last EPDS Self Harm Result Not on file 01/14 Education Answer Date Recorded What is the highest level of school you have completed or the highest degree you have received? 12th grade 08/07/2020 Comments No Sex and Gender Information Value Date Recorded Sex Assigned at Female 03/02/2021 5:45 PM CDT Legal Sex Female 4:13 AM TRANSPLANT NURSE Gender Identity Female 03/02/2021 5:45 PM [...] - 11/02/2021 8:58 AM CDT Approved per [facility] CPA. Diana Desir PharmD Medication Therapy Management Provider, [facility] Pager: [phone] * Telephone Encounter - Aleyda Scott RN [...] daily. Pt has follow up tomorrow with [facility] pharmacist to continue to work on taper. Appointments in Next Year Nov 03, 2021 3:30 PM Pharmacist Visit with Diana Desir RPH [facility] [phone] Informed patient that will route refill request [...] can be reached at: Other phone number: [phone] Best Time: ANYTIME Can we leave a detailed message on this number? YES Call taken on 10/31/2021 at 10:31 AM by Amalia Deluca documented in this encounter Plan of Treatment Upcoming Encounters Date Type Department Care Team (Late st Contact Info) Description 04/30/2025 10:30 AM CDT Office Visit [facility] [address], [address] [place] [address] Liset Márquez MD [address] [facility] 300 [place] [address] 05/30/2025 2:45 PM TRANSPLANT NURSE Office Visit [facility] Heart [facility] [address] [phone] Fabiano Correa NP 6405 [place], [place] 962145 Walter Nowak MD 2844 [place], [place] 418925 08/07/2025 8:15 AM TRANSPLANT NURSE Office Visit [facility] Heart [place] 142435 [address] [phone] Lucien Grimes MD [address] 410085 08/21/2025 9:00 AM TRANSPLANT NURSE Office Visit [facility] [address] [phone] Neil [place] MD 500 [place], [place] 541455 10/09/2025 10:45 AM CDT Virtual Visit [facility] Gastroenterology [address] 4th [place] [phone] Meredith Carrera PA-C 909 [place] [address] documented as of this encounter Visit Diagnoses [...] Out COVID-19 05/17/2022 05/17/2022 05/17/2022 10:20 PM TRANSPLANT NURSE Rule Out COVID-19 06/09/2022 06/09/2022 06/09/2022 9:35 AM TRANSPLANT NURSE COVID-19 06/09/2022 06/09/2022 06/30/2022 11:4 1 PM TRANSPLANT NURSE Rule Out COVID-19 11/10/2022 11/10/2022 11/11/2022 [...] documented as of this encounter Care Teams Storage Engineer Relationship Specialty Start Date End Date Marija Edgar APRN NEURORADIOLOGIST PCP - General Nurse Practitioner 04/30/20 04/14/23 Esha Grimm PA-C [address] [place] [phone] PCP - General Family Medicine 05/04/23 Lita Oseguera Personal Advocate & Liaison (PAL) 02/28/20 03/27/23 Marija Edgar APRN NEURORADIOLOGIST Assigned PCP 06/08/20 04/29/23 Mynor Broussard MD [address] [place] [address] Assigned Surgical Provider 06/01/20 11/28/21 Keisha Dotson MD 909 [place], [place] 948335 Assigned Neuroscience Provider 06/04/20 04/01/23 Galo Burrell MD Assigned Heart and Vascular Provider 10/05/20 04/02/22 Diana Desir, [facility] [address] [place], [place] [address] Pharmacist Pharmacist 04/17/21 Rain Galaviz PA-C [address] [place] [address] [place] [address] Physician Diesel Mechanic Construction Dermatology 04/28/21 Summer Lara MD [address] [facility] [place] [address] Assigned OBGYN Provider 05/31/21 Tavia Wyatt MD [address] [place] [address] Dermatology 07/14/21 Johnny Murillo MD [address] [facility] [address] [place] [address] Assigned Musculoskeletal Provider 08/30/21 03/17/22 Erica Farerll APRN NEURORADIOLOGIST 6405 [facility] [address] [place] [address] Nurse Practitioner Cardiovascular Disease 09/09/21 Tavia Wyatt MD [address] [place], [place] 854660 Assigned Surgical Provider 11/29/21 05/07/22 Diana Desir, [facility] 30[address] [place] [address] Assigned MTM Pharmacist 01/02/22 Rich Barrett MD [address] [place] [address] Physician Ophthalmology 01/21/22 Neil [place] MD 500 [place] [address] Dermatology 02/24/22 [place] [address] [facility] [address] [place], [place] 882467 Assigned Musculoskeletal Provider 03/20/22 08/13/22 Erica Farrell APRN NEURORADIOLOGIST 1700 [place] [address] Assigned Heart and Vascular Provider 04/03/22 04/16/22 Diana Desir, [facility] [address] [place], [place] 072[address] Assigned MTM Pharmacist 04/07/22 Jelena David OD [address] [facility] [place] [address] Assigned Surgical Provider 05/08/22 10/08/22 Galo Burrell MD Assigned Heart and Vascular Provider 04/17/22 06/11/22 Livan Sharif MD [address] [place] [address] Cardiovascular Disease 05/14/22 Livan Sharif MD [address] [address] [place] [address] Assigned Heart and Vascular Provider 06/12/22 07/23/22 Catherine Cm MD [address] [address] [place], [place] 393405 Cardiovascular Disease 07/21/22 Valery Veronica, PAUcheC [address] [place] [address] Physician Diesel Mechanic Construction Dermatology 07/21/22 Catherine Cm MD 6405 [facility] [address] [place] [address] [place] [address] Assigned Heart and Vascular Provider 07/24/22 11/05/22 Johnny Murillo MD [address] [place] [address] Assigned Musculoskeletal Provider 08/14/22 10/08/22 Brea Quinn APRN NEURORADIOLOGIST [address] [place] [address] 796055 Nurse Practitioner Dermatology 09/21/22 Brea Quinn APRN NEURORADIOLOGIST [address] [place] [address] Assigned Surgical Provider 10/09/22 05/01/24 [place] [address] [place] [address] Assigned Musculoskeletal Provider 10/09/22 05/01/24 Livan Sharif MD [address] [address] [place] [address] Assigned Heart and Vascular Provider 11/06/22 11/12/22 Catherine Cm MD [address] [address] [place] [address] Assigned Heart and Vascular Provider 11/13/22 05/27/23 Sydnie Martinez RN Personal Advocate & Liaison (PAL) Family Medicine 03/28/23 07/31/23 Alfonso Renteria MD 5775 [facility] [address] 200 [place] [address] Assigned Neuroscience Provider 04/02/23 09/29/24 Cheng Todd PA-C [address] [place] [address] Assigned PCP 04/30/23 07/15/23 Radha Lomeli APRN NEURORADIOLOGIST 6405 [facility] [address] [place] [address] Assigned Heart and Vascular Provider 05/28/23 11/29/24 Jelena David OD [address] [facility] [place] [address] Ophthalmology 06/15/23 Pao Joseph, VJ Personal Advocate & Liaison (PAL) Nurse 08/01/23 11/07/23 Esha Grimm PA-C [address] [place] [phone] Assigned PCP 07/16/23 Valery Veronica PA-C [address] [place] [address] 459565 Physician Diesel Mechanic Construction Dermatology 09/19/23 Rey Tay MD 9 [place] [address] Gastroenterology 09/20/23 Rocky Zepeda DO [address] [place] [address] Physician Gastroenterology 09/20/23 Philip Dumont MD 6 [place] [address] Physician Ophthalmology 09/22/23 Meredith Carrera PA-C [address] [place] [address] Assigned Gastroenterology Provider 11/01/23 Neil [place] MD [address] [address] MD Dermatology 11/02/23 [place] [address] [place] [address] [facility] [place] [address] Neurological Surgery 12/26/23 Audrey Waite PA-C 500 [place] [address] Physician Diesel Mechanic Construction Dermatology 02/28/24 Valery Veronica PA-C 941261 [address] [address] Physician Diesel Mechanic Construction Dermatology 04/10/24 Herminia Hatch MD [address] [place] [address] [id number] Assigned Rheumatology Provider 07/02/24 [place] [address] [place] [address] [place] [address] Ophthalmology 08/30/24 [place] [address] [address] [facility] 300 [place] [address] Assigned Neuroscience Provider 09/30/24 Maru Man PA-C [address] [place] [address] Physician Diesel Mechanic Construction Dermatology 10/03/24 Maru Man PA-C [address] [place] [address] 560860 Physician Diesel Mechanic Construction Dermatology 10/22/24 [place] David OD [address] [facility] [place] [address] Assigned Surgical Provider 10/31/24 Fabiano Correa NP [address] [place] 260175 Assigned Heart and Vascular Provider 11/30/24 Walter Nowak MD [address] [place] [address] Physician Clinical Cardiac Electrophysiology 03/01/25 Liset Márquez MD [address] [facility] 300 [place] [address] electrical engineering designer 03/13/25 Lauren Coronado, [facility] 909 [place], [place] 593915 Pharmacist Pharmacist 04/15/25 documented as of this encounter
--- OUTSIDE RECORDS SUMMARY | 2025-04-26 23:54 | XMS_ITS | Encounter Summary ---
Author Organization [facility] Address [address] [place] [address] Care Team Providers Care Tree Cutter Name Role Phone Lita Oseguera Unavailable Unavailable Marija Edgar APRN DEVELOPMENT MECHANIC Primary Care Provider + Chanelle Mccann APRN CNM Unavailab le Kyara De La Fuente RN Unavailable [phone] Marija Edgar APRN DEVELOPMENT MECHANIC Unavailable [phone] Mynor Broussard MD Unavailable [phone] Keisha Dotson MD Unavailable Mary Mejia Unavailable Unavailable Stacey Briones LIVE TRUCK OPERATOR Unavailable [phone] Lesley Guillermo CHW Unavailable Mary Mejia Unavailable Unavailable Lita Oseguera Unavailable Unavailable Galo Burrell MD Unavailable Unavailable Cristina Wood Unavailable Lesley Guillermo CHW Unavailable Meredith Bedoya Unavailable Unavailable Cristina Wood Unavailable Diana Desir [facility] Unavailable Rain Galaviz PA-C Unavailable Summer Lara MD Unavailable [phone] Summer Lara MD Unavailable [phone] Summer Lara MD Unavailable [phone] Tavia Wyatt MD Unavailable [phone] Johnny Murillo MD Unavailable [phone] Erica Farrell APRN DEVELOPMENT MECHANIC Unavailable VikasTeresita [facility] Unavailable Tavia Wyatt MD Unavailable [phone] Diana Desir [facility] Unavailable [phone] Rich Barrett MD Unavailable [phone] Neil Kent MD Unavailable Ronye Story [facility] Unavailable Erica Farrell APRN DEVELOPMENT MECHANIC Unavailable Diana Desir [facility] Unavailable [phone] Jelena David OD Unavailable Galo Burrell MD Unavailable Unavailable Livan Sharif MD Unavailable Livan Sharif MD Unavailable Catherine Cm MD Unavailable + Valery Veronica PA-C Unavailable [phone] Catherine Cm MD Unavailable + Johnny Murillo MD Unavailable [phone] Brea Quinn APRN DEVELOPMENT MECHANIC Unavailable [phone] Brea Quinn APRN DEVELOPMENT MECHANIC Unavailable [phone] Jose Francisco Johnson MD Unavailable Livan Sharif MD Unavailable Catherine Cm MD Unavailable + Sydnie Martinez RN Unavailable Unavailable Alfonso Renteria MD Unavailable [phone] Esha Grimm PA-C Primary Care Provider Cheng Todd PA-C Unavailable Radha Lomeli APRN DEVELOPMENT MECHANIC Unavailable Jelena David OD Unavailable Pao Joseph RN Unavailable Unavailable Esha Grimm PA-C Unavailable [phone] Valery Veronica PA-C Unavailable Rey Tay [...] Unavailable Liset Márquez MD Unavailable Cliff L [facility] Unavailable [phone] Encounter Details Date Type Department Care Team (Late Contact Info) Description 07/29/2020 MyC Medical Advice [facility] [address], [address] [place] [address] Keisha Dotson MD 909 [place], [place] [phone] Social History Tobacco Use Types Packs/Day Years [...] PM CDT Legal Sex Female 4:13 AM LAMINATION INSPECTOR Gender Identity Female 03/02/2021 5:45 PM CDT Sexual Orientation Straight 02/28/2020 12 :51 AM CDT COVID-19 Exposure Response Date Recorded In the last month, have you been in contact with someone who was confirmed or suspected to have Coronavirus / COVID-19? No / Unsure 07/30/2020 4:53 PM LAMINATION INSPECTOR documented as of this encounter Plan of Treatment Upcoming Encounters Date Type Department Care Team (Late Contact Info) Description 04/30/2025 10:30 AM CDT Office Visit [facility] Women's [facility] [address], [address] [place] [phone] Liset Márquez MD [address] [place] [address] 05/30/2025 2:45 PM LAMINATION INSPECTOR Office Visit [facility] Heart Clinic [address] [place] [address] Fabiano Correa, BRYCE [address] [place] [address] Walter Nowak MD [address] [place] [address] 08/07/2025 8:15 AM LAMINATION INSPECTOR Office Visit [facility] Heart [facility] 6405 [facility] [address] [place] [phone] Lucien Grimes MD [address] [place] [address] 08/21/2025 9:00 AM LAMINATION INSPECTOR Office Visit [facility] [address] [phone] Neil Kent MD [address] [place] [address] 060355 10/09/2025 10:45 AM CDT Virtual Visit [facility] Gastroenterology Clinic [address]th [place] [phone] Meredith Carrera PA-C [address] [place] [address] 658245 documented as of this encounter Visit Diagnoses Not on filedocumented in this encounter Additional Health Concerns Infection Onset Date Last Indicated Resolved Time Rule Out COVID-19 07/30/2020 07/30/2020 07/30/2020 7:11 PM LAMINATION INSPECTOR Rule Out COVID-19 08/30/2020 08/30/2020 08/30/2020 5:05 PM LAMINATION INSPECTOR Rule Out COVID-19 09/24/2020 09/24/2020 09/24/2020 9:24 AM CDT Rule Out COVID-19 11/05/2020 11/05/2020 11/06/2020 1:09 PM CDT Rule Out COVID-19 05/11/2021 05/11/2021 05/13/2021 10:18 AM CDT Rule Out COVID-19 07/13/2021 07/13/2021 07/14/2021 3:04 PM LAMINATION INSPECTOR Rule Out COVID-19 07/18/2021 07/18/2021 07/20/2021 1:56 PM LAMINATION INSPECTOR COVID-19 07/18/2021 07/18/2021 08/08/2021 11:3 9 PM LAMINATION INSPECTOR Rule Out COVID-19 12/18/2021 12/18/2021 12/19/2021 11:34 AM CDT Rule Out COVID-19 02/24/2022 02/24/2022 02/25/2022 1:08 PM CDT Rule Out COVID-19 04/26/2022 04/26/2022 04/26/2022 6:47 AM CDT Rule Out COVID-19 05/17/2022 05/17/2022 05/17/2022 10:20 PM LAMINATION INSPECTOR Rule Out COVID-19 06/09/2022 06/09/2022 06/09/2022 9:35 AM LAMINATION INSPECTOR COVID-19 06/09/2022 06/09/2022 06/30/2022 11:4 1 PM LAMINATION INSPECTOR Rule Out COVID-19 11/10/2022 11/10/2022 11/11/2022 [...] Depression Total Score: 9 06/25/20 7:04 AM LAMINATION INSPECTOR documented as of this encounter Care Teams Tree Cutter Relationship Specialty Start Date End Date Marija Edgar APRN DEVELOPMENT MECHANIC PCP - General Nurse Practitioner 04/30/20 04/14/23 Esha Grimm PA-C [address] [place] [phone] PCP - General Family Medicine 05/04/23 Lita Oseguera Personal Advocate & Liaison (PAL) 02/28/20 03/27/23 [place] [address] [facility] [facility] 200 [place] [address] Assigned OBGYN Provider 05/02/2005/09 Kyara De La Fuente, RN Specialty Watch Dial [facility] Neurology 06/04/20 03/05/21 Marija Edgar APRN DEVELOPMENT MECHANIC Assigned PCP 06/08/20 04/29/23 Mynor Broussard MD [address] [place] [address] [phone] Assigned Surgical Provider 06/01/20 11/28/21 Keisha Dotson MD [address] [place] [address] Assigned Neuroscience Provider 06/04/20 04/01/23 Mary Mejia Financial Resource Worker 08/07/20 08/21/20 Stacey Briones, [facility] Lead Watch Dial [facility] - CC 08/11/20 12/30/20 Lesley Guillermo, [facility] Community Health Worker 08/11/20 10/01/20 Mary Mejia Financial Resource Worker 09/02/20 10/06/20 Lita Oseguera Personal Advocate & Liaison (PAL) Family Medicine 09/10/20 09/21/20 Galo Burrell MD Assigned Heart and Vascular Provider 10/05/20 04/02/22 Cristina Wood Financial Resource Worker 10/07/20 10/14/20 Lesley Guillermo, [facility] Community Health Worker 10/23/20 12/30/20 Meredith Bedoya Financial Resource Worker 10/23/20 11/23/20 Cristina Wood Financial Resource Worker 02/09/21 02/09/21 Diana Desir, [facility] [address] [place], [place] [phone] Pharmacist Pharmacist 04/17/21 Rain Galaviz PA-C [address] [place] [address] [address] [place], [place] [phone] Physician Teenage Program Director Dermatology 04/28/21 Summer Lara MD [address] [place] [address] Assigned OBGYN Provider 05/10/2105/23 Summer Lara MD [address] [place] [address] Assigned OBGYN Provider 05/31/21 2 Summer Lara MD [address] [place] [address] 188964 Assigned OBGYN Provider 05/24/2105/30 Tavia Wyatt MD [address] [place] [address] Dermatology 07/14/21 Johnny Murillo MD [facility] S [facility] [address] [place] [address] Assigned Musculoskeletal Provider 08/30/21 03/17/22 Erica Farrell APRN DEVELOPMENT MECHANIC 6[address] [facility] [address] [place] [address] Nurse Practitioner Cardiovascular Disease 09/09/21 Teresita Bean [facility] [address] [place] [phone] Pharmacist Pharmacist 09/24/21 09/29/21 Tavia Wyatt MD [address] [place] [address] Assigned Surgical Provider 11/29/21 05/07/22 [facility] [place] [address] Assigned MTM Pharmacist 01/02/22 Rich Barrett MD [facility] [place] [address] Physician Ophthalmology 01/21/22 Neil Kent MD 500 [place] [address] Dermatology 02/24/22 Roney Story DPM [address] [facility] [address] [place] [address] Assigned Musculoskeletal Provider 03/20/22 08/13/22 Erica Farrell APRN DEVELOPMENT MECHANIC 17[address] [place] [address] Assigned Heart and Vascular Provider 04/03/22 04/16/22 [facility] [address] [place] [address] Assigned MTM Pharmacist 04/07/22 Jelena David OD [address] [facility] [place] [address] Assigned Surgical Provider 05/08/22 10/08/22 Galo Burrell MD Assigned Heart and Vascular Provider 04/17/22 06/11/22 Livan Sharif MD [address] [place] [address] [place] [address] Cardiovascular Disease 05/14/22 Livan Sharif MD [address] [place] [address] [place] [address] Assigned Heart and Vascular Provider 06/12/22 07/23/22 Catherine Cm MD [address] [address] [place] [address] Cardiovascular Disease 07/21/22 Valery Veronica PA-C [address] [place] [address] 821215 Physician Teenage Program Director Dermatology 07/21/22 Catherine Cm MD [address] [place] [address] [place] 448305 Assigned Heart and Vascular Provider 07/24/22 11/05/22 Johnny Murillo MD [address] [place] [address] 616784 Assigned Musculoskeletal Provider 08/14/22 10/08/22 Brea Quinn APRN DEVELOPMENT MECHANIC [address] [place] [address] [phone] Nurse Practitioner Dermatology 09/21/22 Brea Quinn APRN DEVELOPMENT MECHANIC [address] [place] [address] [place] [id number] Assigned Surgical Provider 10/09/22 05/01/24 [place] [address]ZO [facility] [place] [address]597 Assigned Musculoskeletal Provider 10/09/22 05/01/24 Livan Sharif MD [address] [address] [place] [address] Assigned Heart and Vascular Provider 11/06/22 11/12/22 Catherine Cm MD [address] [place] [address] Assigned Heart and Vascular Provider 11/13/22 05/27/23 Sydnie Martinez RN Personal Advocate & Liaison (PAL) Family Medicine 03/28/23 07/31/23 Alfonso Renteria MD 5775 [facility] 200 [place] [address] Assigned Neuroscience Provider 04/02/23 09/29/24 Cheng Todd PA-C [address] [place] [address] [phone] Assigned PCP 04/30/23 07/15/23 Radha Lomeli APRN DEVELOPMENT MECHANIC [address] [place], [place] [address] Assigned Heart and Vascular Provider 05/28/23 11/29/24 Jelena David OD [address] [facility] [place] [address] Ophthalmology 06/15/23 Pao Joseph, VJ Personal Advocate & Liaison (PAL) Nurse 08/01/23 11/07/23 Esha Grimm PA-C [address] [place] [phone] Assigned PCP 07/16/23 Valery Veronica PA-C [address] [place] [address] Physician Teenage Program Director Dermatology 09/19/23 Rey Tay MD [address] [place] [address] MD Gastroenterology 09/20/23 Rocky Zepeda DO [address] [place] [address] Physician Gastroenterology 09/20/23 Philip Dumont MD [address] [place] [address] Physician Ophthalmology 09/22/23 Meredith Carrera PA-C [address] [place] [address] Assigned Gastroenterology Provider 11/01/23 Neil Kent MD [address] [address] Dermatology 11/02/23 [place] [address] [address] [facility] [place] [address] Neurological Surgery 12/26/23 Audrey Waite PA-C 500 [place] [address] Physician Teenage Program Director Dermatology 02/28/24 Valery Veronica PA-C 263492 [place], [place] [address] Physician Teenage Program Director Dermatology 04/10/24 Herminia Hatch MD [facility]5 [place], [place] [phone] Assigned Rheumatology Provider 07/02/24 Jelena David, OD [address] [facility] [place] [address] Ophthalmology 08/30/24 [place] [address] [facility] 300 [place] [address] Assigned Neuroscience Provider 09/30/24 Maru Man PA-C [address] [place] [address] Physician Teenage Program Director Dermatology 10/03/24 Maru Man PA-C [address] [place] [address] Physician Teenage Program Director Dermatology 10/22/24 Jelena David, SONJA [address] [facility] [place] [address] Assigned Surgical Provider 10/31/24 Fabiano Correa, BRYCE [address] [place] 706385 Assigned Heart and Vascular Provider 11/30/24 Walter Nowak MD [address] [place] 910135 Physician Clinical Cardiac Electrophysiology 03/01/25 Liset Márquez MD [address] [place] [address] hot dipper 03/13/25 Lauren Coronado, [facility] [address] [place] [address] Pharmacist Pharmacist 04/15/25 documented as of this encounter
--- OUTSIDE RECORDS SUMMARY | 2025-04-26 23:55 | XMS_ITS | Encounter Summary ---
Author Organization [facility] Address [address] [place] [address] Care Team Providers Care Top Steep Tender Name Role Phone Lita Oseguera Unavailable Unavailable Marija Edgar APRN WEAPONS AND TACTICS INSTRUCTOR Primary Care Provider + Marija Edgar APRN WEAPONS AND TACTICS INSTRUCTOR Unavailable [phone] Keisha Dotson MD Unavailable Diana Desir [facility] Unavailable [phone] Rain Galaviz PA-C Unavailable Tavia Wyatt MD Unavailable Erica Farrell APRN WEAPONS AND TACTICS INSTRUCTOR Unavailable Rich Barrett MD Unavailable [phone] Neil Kent MD Unavailable Diana Desir [facility] Unavailable Livan Sharif MD Unavailable Catherine Cm MD Unavailable + Valery Veronica PA-C Unavailable Brea Quinn APPRENTICE COOK WEAPONS AND TACTICS INSTRUCTOR Unavailable Brea Quinn APPRENTICE COOK WEAPONS AND TACTICS INSTRUCTOR Unavailable Jose Francisco Johnson MD Unavailable Catherine Cm MD Unavailable + Sydnie Martinez RN Unavailable Unavailable Alfonso Renteria MD Unavailable [phone] Esha Grimm PA-C Primary Care Provider Cheng Todd PA-C Unavailable Armani Radha Stovall ARLENE WEAPONS AND TACTICS INSTRUCTOR Unavailable Jelena David OD Unavailable Pao Joseph RN Unavailable Unavailable Esha Grimm PA-C Unavailable [phone] Valery Veronica PA-C Unavailable Rey Tay MD Unavailable Rocky Zepeda DO Unavailable Philip Dumont MD Unavailable [phone] Meredith Carrera PA-C Unavailable [phone] Neil Kent MD Unavailable Juan Pablo Emmanuel MD Unavailable Audrey Waite PA-C Unavailable Valery Veronica PA-C Unavailable Herminia Hatch MD Unavailable Jelena David OD Unavailable [phone] Juan Pablo Emmanuel MD Unavailable [phone] Maru Man PA-C Unavailable [phone] Maru Man PA-C Unavailable [phone] Jelena David OD Unavailable Fabiano Correa NP Unavailable Walter Nowak MD Unavailable Liset Márquez MD Unavailable Lauren Coronado [facility] Unavailable Encounter Details Date Type Department Care Team (Late st Contact Info) Description 01/28/[address] [facility] Heart [address] [place] [phone] Margaret Rendon RN Social History Tobacco [...] How often do you attend synagogue or nondenominational serv ices? Never 09/22/2021 Do [...] Answer Date Recorded PHQ-2 Score 1 10/11/2022 [facility] [place] of Occupat ional Health - Occupational Stress [...] in a snf (including now)? No 09/22/2021 [place] Depression Scale Answer Date Recorded [place] Depression Score 5 01/14/2021 Last EPDS Self Harm Result Not on file 01/14 Education Answer Date Recorded What is the highest level of school you have completed or the highest degree you have received? 12th grade 08/07/2020 Comments No Sex and Gender Information Value Date Recorded Sex Assigned at Female 03/02/2021 5:45 PM CDT Legal Sex Female 4:13 AM PHOTOENGRAVER Gender Identity Female 03/02/2021 5:45 PM CDT [...] 04/30/2025 10:30 AM CDT Office Visit [facility] Women's [facility] [address], [address] [place] [phone] Liset Márquez MD [address] [place] [address] 05/30/2025 2:45 PM PHOTOENGRAVER Office Visit [facility] Heart [facility] [address] [phone] Fabiano Correa NP 6406 [place], [place] 842845 Walter Nowak MD 6402 [place], [place] 157555 08/07/2025 8:15 AM PHOTOENGRAVER Office Visit [facility] [address] [place] [address] Lucien Grimes MD [address] [place] [address] 08/21/2025 9:00 AM PHOTOENGRAVER Office Visit [facility] [address] [phone] Neil Kent MD 500 [place] [address] 10/09/2025 10:45 AM CDT Virtual Visit [facility] Gastroenterology Clinic [place] 909 [facility] 4th [place] [phone] Meredith Carrera PA-C [address] [place] [address] 768685 documented as of this encounter Visit Diagnoses [...] documented as of this encounter Care Teams Top Steep Tender Relationship Specialty Start Date End Date Marija Edgar APRN WEAPONS AND TACTICS INSTRUCTOR PCP - General Nurse Practitioner 04/30/20 04/14/23 Esha Grimm PA-C [address] [place] [address] PCP - General Family Medicine 05/04/23 Lita Oseguera Personal Advocate & Liaison (PAL) 02/28/20 03/27/23 Marija Edgar APRN WEAPONS AND TACTICS INSTRUCTOR Assigned PCP 06/08/20 04/29/23 Keisha Dotson MD 909 [place], [place] 981435 Assigned Neuroscience Provider 06/04/20 04/01/23 Diana Desir, [facility] 3033 [place], [place] 8539[address] Pharmacist Pharmacist 04/17/21 Rain Galaviz PA-C [address] [place] [address] [address] [place] [address] Physician Protection Engineer Dermatology 04/28/21 Tavia Wyatt MD [address] [place] [address] [place] [phone] Dermatology 07/14/21 Erica Farrell APRN WEAPONS AND TACTICS INSTRUCTOR [address] [facility] [address] [place] [address] Nurse Practitioner Cardiovascular Disease 09/09/21 Rich Barrett MD [address] [place], [place] 14[address] Physician Ophthalmology 01/21/22 Neil Kent MD 500 [place], [place] 629835 Dermatology 02/24/22 Diana Desir, [facility] 3033 [place], [place] 098846 Assigned MTM Pharmacist 04/07/22 Livan Sharif MD [address] 0725[address] Cardiovascular Disease 05/14/22 Catherine Cm MD 6405 [facility] S [address] 543755 Cardiovascular Disease 07/21/22 Valery Veronica, PA-C 909 [place], [place] 083545 Physician Protection Engineer Dermatology 07/21/22 Brea Quinn APRN WEAPONS AND TACTICS INSTRUCTOR 500 [place], [place] 812805 Nurse Practitioner Dermatology 09/21/22 Brea Quinn APRN WEAPONS AND TACTICS INSTRUCTOR [address] [place] [address] [place] 434192 Assigned Surgical Provider 10/09/22 05/01/24 [place] [address] [facility] 300 [place] [address] Assigned Musculoskeletal Provider 10/09/22 05/01/24 Catherine Cm MD [address] [facility] [address] [place] [address] Assigned Heart and Vascular Provider 11/13/22 05/27/23 Sydnie Martinez, RN Personal Advocate & Liaison (PAL) Family Medicine 03/28/23 07/31/23 Alfonso Renteria MD 5775 [facility] 200 [place], [place] 404156 Assigned Neuroscience Provider 04/02/23 09/29/24 Cheng Todd PA-C [address] [place] [address] [phone] Assigned PCP 04/30/23 07/15/23 Radha Lomeli APRN WEAPONS AND TACTICS INSTRUCTOR [address] [place] [address] Assigned Heart and Vascular Provider 05/28/23 11/29/24 Jelena David OD [address] [facility] [address] Ophthalmology 06/15/23 Pao Jospeh, VJ Personal Advocate & Liaison (PAL) Nurse 08/01/23 11/07/23 Esha Grimm PAUcheC [address] [place] [phone] Assigned PCP 07/16/23 Valery Veronica PA-C 9 [place], [place] 563135 Physician Protection Engineer Dermatology 09/19/23 Rey Tay MD [address] [place] [address] 637795 MD Gastroenterology 09/20/23 Rocky Zepeda DO [address] [place] [address] 959025 Physician Gastroenterology 09/20/23 Philip Dumont MD [address] [place] [address] 529855 Physician Ophthalmology 09/22/23 Meredith Carrera PA-C [address] [place] [address] 424095 Assigned Gastroenterology Provider 11/01/23 Neil Kent MD [address] [phone] Dermatology 11/02/23 [place] [address] [facility] [address] Neurological Surgery 12/26/23 Audrey Waite PA-C [address] [place] [address] Physician Protection Engineer Dermatology 02/28/24 Valery Veronica PA-C [address] [place] [address] Physician Protection Engineer Dermatology 04/10/24 Herminia Hatch MD [facility]5 [place] [address] Assigned Rheumatology Provider 07/02/24 Jelena David OD [address] [place] [address] [place] [address] Ophthalmology 08/30/24 [place] [address] [place] [address] Assigned Neuroscience Provider 09/30/24 Maru Man PA-C [address] [place] [address] Physician Protection Engineer Dermatology 10/03/24 Maru Man PA-C [address] [place] [address] Physician Protection Engineer Dermatology 10/22/24 Jelena David OD [address] [place] [address] [place] [address] Assigned Surgical Provider 10/31/24 Fabiano Correa NP [address] [place] 007385 Assigned Heart and Vascular Provider 11/30/24 Walter Nowak MD [address] [place] 956585 Physician Clinical Cardiac Electrophysiology 03/01/25 Liset Márquez MD [address] [place] [address] clinical reviewer 03/13/25 Lauren Coronado, [facility] [address] [place] [address] Pharmacist Pharmacist 04/15/25 documented as of this encounter
--- OUTSIDE RECORDS SUMMARY | 2025-04-26 23:55 | XMS_ITS | Encounter Summary ---
Author Organization [facility] Address [address] [place] [address] Care Team Providers Care Poultry Farmer Name Role Phone Lita Oseguera Unavailable Unavailable Marija Edgar APRN POLITICAL DIRECTOR Primary Care Provider + Marija Edgar APRN POLITICAL DIRECTOR Unavailable [phone] Mynor Broussard MD Unavailable [phone] Keisha Dotson MD Unavailable Galo Burrell MD Unavailable Unavailable Diana Desir [facility] Unavailable Rain Galaviz PA-C Unavailable Summer Lara MD Unavailable [phone] Tavia Wyatt MD Unavailable Johnny Murillo MD Unavailable Erica Farrell APRN POLITICAL DIRECTOR Unavailable Tavia Wyatt MD Unavailable Diana Desir [facility] Unavailable Rich Barrett MD Unavailable [phone] Neil Kent MD Unavailable Roney StoryM Unavailable Erica Farrell FACTORY REPRESENTATIVE POLITICAL DIRECTOR Unavailable Diana Desir [facility] Unavailable [phone] Jelena David OD Unavailable Galo Burrell MD Unavailable Unavailable Livan Sharif MD Unavailable Livan Sharif MD Unavailable Catherine Cm MD Unavailable + Valery Veronica PA-C Unavailable [phone] Catherine Cm MD Unavailable + Johnny Murillo MD Unavailable [phone] Brea Quinn FACTORY REPRESENTATIVE POLITICAL DIRECTOR Unavailable [phone] Brea Quinn FACTORY REPRESENTATIVE POLITICAL DIRECTOR Unavailable [phone] Jose Francisco Johnson MD Unavailable Livan Sharif MD Unavailable + IsCatherine hobbs MD Unavailable + Sydnie Martinez RN Unavailable Unavailable Alfonso Renteria MD Unavailable Esha Grimm PA-C Primary Care Provider Cheng Todd PA-C Unavailable Radha Lomeli FACTORY REPRESENTATIVE POLITICAL DIRECTOR Unavailable [phone] Jelena David OD Unavailable [phone] Pao Joseph RN Unavailable Unavailable Esha Grimm PA-C Unavailable Valery Veronica PA-C Unavailable [phone] Rey Tay MD Unavailable Rocky Zepeda DO Unavailable Philip Dumont MD Unavailable [phone] LoreMeredith mayers PA-C Unavailable Neil Kent MD Unavailable Juan Pablo Emmanuel MD Unavailable Audrey Waite PA-C Unavailable Valery Veronica PA-C Unavailable Herminia Hatch MD Unavailable Jelena David OD Unavailable [phone] Juan Pablo Emmanuel MD Unavailable Maru Man-C Unavailable [phone] Maru Man PA-C Unavailable [phone] Jelena David OD Unavailable Fabiano Correa NP Unavailable Walter Nowak MD Unavailable Liset Márquez MD Unavailable Lauren Coronado [facility] Unavailable [phone] Encounter Details Date Type Department Care Team (Late st Contact Info) Description 10/28/2021 MyC Medical Advice [facility] Heart [address] [place] [address] Erica Farrell, ARLENE POLITICAL DIRECTOR [address] [place] [address] Social History Tobacco Use Types Packs/Day Years [...] How often do you attend jainism or congregation serv ices? Never 09/22/2021 Do [...] Answer Date Recorded PHQ-2 Score 2 09/22/2021 [facility] [place] of Occupat ional Health - Occupational Stress [...] in a penitentiary (including now)? No 09/22/2021 Sussex Depression Scale Answer Date Recorded Sussex Depression Score 5 01/14/2021 Last EPDS Self Harm Result Not on file 01/14 Education Answer Date Recorded What is the highest level of school you have completed or the highest degree you have received? 12th grade 08/07/2020 Comments No Sex and Gender Information Value Date Recorded Sex Assigned at Female 03/02/2021 5:45 PM CDT Legal Sex Female 4:13 AM COMPUTER HARDWARE DEVELOPER Gender Identity Female 03/02/2021 5:45 PM [...] Visit [facility] Women's [facility] [address], [address] [place] [phone] Liset Márquez MD [address] [facility] [address] [place], [place] [address] 05/30/2025 2:45 PM COMPUTER HARDWARE DEVELOPER Office Visit [facility] Heart [facility] [address] [facility] [address] [place] [phone] Fabiano Correa NP [address] [place], [place] 135755 Walter Nowak MD [address] [place], [place] 8267[address] 08/07/2025 8:15 AM COMPUTER HARDWARE DEVELOPER Office Visit [facility] Heart [facility] [address] [facility] [address] [place] [address] Lucien Grimes MD [address] [address] 08/21/2025 9:00 AM COMPUTER HARDWARE DEVELOPER Office Visit [facility] [address] [phone] Neil Kent MD 500 [place], [place] [phone] 10/09/2025 10:45 AM CDT Virtual Visit [facility] Gastroenterology [facility] [address] [place] [address] 4th [place] [phone] Merdeith Carrera PA-Romana [address] [place] [address] [phone] (work) documented as of this encounter Visit Diagnoses Not on filedocumented in this encounter Additional Health Concerns Infection Onset Date Last Indicated Resolved Time Rule Out COVID-19 12/18/2021 12/18/2021 12/19/2021 11:34 AM CDT Rule Out COVID-19 02/24/2022 02/24/2022 02/25/2022 1:08 PM CDT Rule Out COVID-19 04/26/2022 04/26/2022 04/26/2022 6:47 AM CDT Rule Out COVID-19 05/17/2022 05/17/2022 05/17/2022 10:20 PM COMPUTER HARDWARE DEVELOPER Rule Out COVID-19 06/09/2022 06/09/2022 06/09/2022 9:35 AM COMPUTER HARDWARE DEVELOPER COVID-19 06/09/2022 06/09/2022 06/30/2022 11:4 1 PM COMPUTER HARDWARE DEVELOPER Rule Out COVID-19 11/10/2022 11/10/2022 11/11/2022 [...] documented as of this encounter Care Teams Poultry Farmer Relationship Specialty Start Date End Date Marija Edgar APRN POLITICAL DIRECTOR PCP - General Nurse Practitioner 04/30/20 04/14/23 Esha Grimm PA-C [address] [place] [phone] PCP - General Family Medicine 05/04/23 Lita Oseguera Personal Advocate & Liaison (PAL) 02/28/20 03/27/23 Marija Edgar APRN POLITICAL DIRECTOR Assigned PCP 06/08/20 04/29/23 Mynor Broussard MD [address] [place], [place] 515245 Assigned Surgical Provider 06/01/20 11/28/21 Keisha Dotson MD 909 [place], [place] 274985 Assigned Neuroscience Provider 06/04/20 04/01/23 Galo Burrell MD Assigned Heart and Vascular Provider 10/05/20 04/02/22 Diana Desir, [facility] [address] [place] [address] Pharmacist Pharmacist 04/17/21 Rain Galaviz PA-C [address] [place] [address] [place] [address] Physician Chief Scientific Officer Dermatology 04/28/21 Summer Lara MD [address] [place] [address] 107084 Assigned OBGYN Provider 05/31/21 2 Tavia Wyatt MD [address] [place] [address] [phone] Dermatology 07/14/21 Johnny Murillo MD [facility] [address] [place] [address] Assigned Musculoskeletal Provider 08/30/21 03/17/22 Erica Farrell APRN POLITICAL DIRECTOR [address] [facility] [address] [place] [address] Nurse Practitioner Cardiovascular Disease 09/09/21 Tavia Wyatt MD [address] [place] [address] Assigned Surgical Provider 11/29/21 05/07/22 [facility] [address] [place] [address] Assigned MTM Pharmacist 01/02/22 Rich Barrett MD [address] [place] [address] Physician Ophthalmology 01/21/22 Neil Kent MD 500 [place], [place] 932175 Dermatology 02/24/22 Roney Story DPM [address] [facility] 300 [place], [place] 669867 Assigned Musculoskeletal Provider 03/20/22 08/13/22 Erica Farrell APRN POLITICAL DIRECTOR [address] [place] [address] Assigned Heart and Vascular Provider 04/03/22 04/16/22 [facility] 3033 [place] [address] Assigned MTM Pharmacist 04/07/22 Jelena David OD [address] [facility] [place] [address] Assigned Surgical Provider 05/08/22 10/08/22 Galo Burrell MD Assigned Heart and Vascular Provider 04/17/22 06/11/22 Livan Sharif MD [address] [place] [address]265 Cardiovascular Disease 05/14/22 Livan Sharif MD [address] [place] [address] Assigned Heart and Vascular Provider 06/12/22 07/23/22 Catherine Cm MD [address] [place] 692255 Cardiovascular Disease 07/21/22 Valery Veronica PA-C 909 [place] [address] Physician Chief Scientific Officer Dermatology 07/21/22 Catherine Cm MD [address] [facility] [address] [place] [address] Assigned Heart and Vascular Provider 07/24/22 11/05/22 Johnny Murillo MD [address] [phone] Assigned Musculoskeletal Provider 08/14/22 10/08/22 Brea Quinn APRN POLITICAL DIRECTOR 500 [place], [place] 872785 Nurse Practitioner Dermatology 09/21/22 Brea Quinn APRN POLITICAL DIRECTOR [address] [place] [address] [place] 803012 Assigned Surgical Provider 10/09/22 05/01/24 [place] [address] [place] [address] Assigned Musculoskeletal Provider 10/09/22 05/01/24 Livan Sharif MD [address] [facility] [address] [place] [address] Assigned Heart and Vascular Provider 11/06/22 11/12/22 Catherine Cm MD [address] [place] [address] Assigned Heart and Vascular Provider 11/13/22 05/27/23 Sydnie Martinez RN Personal Advocate & Liaison (PAL) Family Medicine 03/28/23 07/31/23 Alfonso Renteria MD 5775 [facility] [address] [place] [address] Assigned Neuroscience Provider 04/02/23 09/29/24 Cheng Todd PA-C [address] [place] [address] Assigned PCP 04/30/23 07/15/23 Radha Lomeli, FACTORY REPRESENTATIVE POLITICAL DIRECTOR [address] [facility] [address] [place], [place] 8748[address] Assigned Heart and Vascular Provider 05/28/23 11/29/24 Jelena David OD [address] [facility] [address] [place] [id number] Ophthalmology 06/15/23 Pao Joseph, VJ Personal Advocate & Liaison (PAL) Nurse 08/01/23 11/07/23 Esha Grimm PA-C [address] [place] [address] Assigned PCP 07/16/23 Valery Veronica PA-C [address] [place] [address] 490255 Physician Chief Scientific Officer Dermatology 09/19/23 Rey Tay MD [address] [place] [address] 211665 Gastroenterology 09/20/23 Rocky Zepeda DO [address] [place] [address] 812645 Physician Gastroenterology 09/20/23 Philip Dumont MD 516 [place] [address] Physician Ophthalmology 09/22/23 Meredith Carrera PA-C [address] [place] [address] Assigned Gastroenterology Provider 11/01/23 Neil Kent MD [address] 724600 MD Dermatology 11/02/23 [place] [address] [place] [address] Neurological Surgery 12/26/23 Audrey Waite PA-C 500 [place], [place] 960635 Physician Chief Scientific Officer Dermatology 02/28/24 Valery Veronica PA-C [address] [place] [address] Physician Chief Scientific Officer Dermatology 04/10/24 Herminia Hatch MD 1875 [place], [place] 39194125 Assigned Rheumatology Provider 07/02/24 Jelena David OD [address] [facility] [place] [address] Ophthalmology 08/30/24 [place] [address] [facility] 300 [place] [address] Assigned Neuroscience Provider 09/30/24 Maru Man PA-C [address] [place] [address] Physician Chief Scientific Officer Dermatology 10/03/24 Maru Man PA-C [address] [place] [address] Physician Chief Scientific Officer Dermatology 10/22/24 Jelena David OD [address] [facility] [place] [address] Assigned Surgical Provider 10/31/24 Fabiano Correa, ICT BUSINESS DEVELOPMENT MANAGER [address] [place] [address] Assigned Heart and Vascular Provider 11/30/24 Walter Nowak MD [address] [place] [address] Physician Clinical Cardiac Electrophysiology 03/01/25 Liset Márquez MD [address] [facility] 300 [place] [address] noxious weeds and pest inspector 03/13/25 Lauren Coronado, [facility] 909 [place], [place] 489805 Pharmacist Pharmacist 04/15/25 documented as of this encounter
--- OUTSIDE RECORDS SUMMARY | 2025-04-26 23:55 | XMS_ITS | Encounter Summary ---
Author Organization [facility] Address [address] [place] [address] Care Team Providers Care Inspector Receiving Name Role Phone Diana Desir [facility] Unavailable Rain Galaviz PA-C Unavailable Tavia Wyatt MD Unavailable [phone] Erica Farrell APRN GLASS FRAME FITTER Unavailable Rich Barrett MD Unavailable [phone] Neil Kent MD Unavailable Diana Desir [facility] Unavailable Livan Sharif MD Unavailable Catherine Cm MD Unavailable + Valery Veronica PA-C Unavailable Brea Quinn INTERNATIONAL TRADE COMPLIANCE MANAGER GLASS FRAME FITTER Unavailable Brea Quinn INTERNATIONAL TRADE COMPLIANCE MANAGER GLASS FRAME FITTER Unavailable Jose Francisco Johnson MD Unavailable Alfonso Renteria MD Unavailable [phone] Esha Grimm PA-C Primary Care Provider [phone] Lomeli, Radha E INTERNATIONAL TRADE COMPLIANCE MANAGER GLASS FRAME FITTER Unavailable Jelena David OD Unavailable [phone] Esha Grimm PA-C Unavailable [phone] Valery Veronica PA-C Unavailable Rey Tay [...] Team (Late st Contact Info) Description 02/27/2024 [facility] Spine and Neurosurgery [address] [place] [phone] Ebony Cid, ARLENE GLASS FRAME FITTER [address] [place] [address] Social History Tobacco Use Types Packs/Day Years [...] [facility]? 1 to 4 [...] at this level? 30 min 03/10/2023 Jones Depression Scale Answer Date Recorded Jones Depression Score 5 01/14/2021 Last EPDS Self [...] Legal Sex Female 4:13 AM AIR CONDITIONING MECHANIC INDUSTRIAL Gender Identity Female 03/02/2021 5:45 PM CDT Sexual Orientation Straight 02/28/2020 12 :51 AM CDT documented as of this encounter Plan of Treatment Upcoming Encounters Date Type Department Care Team (Late st Contact Info) Description 04/30/2025 10:30 AM CDT Office Visit [facility] Women's [facility] [address], [address] [place] [phone] Liset Márquez MD [address] [place] [address] 05/30/2025 2:45 PM AIR CONDITIONING MECHANIC INDUSTRIAL Office Visit [facility] Heart [facility] 6[address] [facility] [address] [place] [phone] Fabiano Correa, ELECTRICAL SYSTEM SPECIALIST 6405 [place], [place] 9695[address] Walter Nowak MD 8978 [place], [place] 4405[address] 08/07/2025 8:15 AM AIR CONDITIONING MECHANIC INDUSTRIAL Office Visit [facility] Heart [facility] [address] [phone] Lucien Grimes MD [address] 156965 08/21/2025 9:00 AM AIR CONDITIONING MECHANIC INDUSTRIAL Office [facility] [address] [phone] Neil Kent MD 500 [place], [place] 811425 10/09/2025 10:45 AM CDT Virtual Visit [facility] Gastroenterology Clinic [facility] 909 [facility] 4th [place] [phone] Meredith Carrera PA-C [address] [place] [address] 606075 documented as of this encounter Visit Diagnoses [...] as of this encounter Care Teams Inspector Receiving Relationship Specialty Start Date End Date Esha Grimm PA-C [address] [place] [phone] PCP - General Family Medicine 05/04/23 Diana Desir, [facility] 30[address] [place], [place] 5[address] Pharmacist Pharmacist 04/17/21 Rain Galaviz PA-C [address] [place] [address] [place] [address] Physician Field Marketing Manager Dermatology 04/28/21 Tavia Wyatt MD [address] [place] [address] [place] [phone] Dermatology 07/14/21 Erica Farrell APRN GLASS FRAME FITTER [address] [place] 30[address]200 [place] 7[address]25 Nurse Practitioner Cardiovascular Disease 09/09/21 Rich Barrett MD [address] [place] 366145 Physician Ophthalmology 01/21/22 Neil Kent MD [address] [place], [place] 303295 Dermatology 02/24/22 Diana Desir, [facility] [address] [place], [place] [address] Assigned [facility] Pharmacist 04/07/22 Livan Sharif MD [address] [place] [address] Cardiovascular Disease 05/14/22 Catherine Cm MD 6405 [facility] [address] 793075 Cardiovascular Disease 07/21/22 Valery Veronica, PA-C 909 [place], [place] 003495 Physician Field Marketing Manager Dermatology 07/21/22 Brea Quinn APRN GLASS FRAME FITTER 500 [place], [place] 479[address] Nurse Practitioner Dermatology 09/21/22 Brea Quinn APRN GLASS FRAME FITTER [address] [place] [address] [place] 401072 Assigned Surgical Provider 10/09/22 05/01/24 [place] [address] [address] [place] [address] Assigned Musculoskeletal Provider 10/09/22 05/01/24 Alfonso Renteria MD [address] [place], [place] 129446 Assigned Neuroscience Provider 04/02/23 09/29/24 Radha Lomeli APRN GLASS FRAME FITTER 6[address] [facility] [place] [address] [place] [address] Assigned Heart and Vascular Provider 05/28/23 11/29/24 Jelena David OD [address] [facility] [place] [address] Ophthalmology 06/15/23 Esha Grimm PA-C [address] [place] [address] Assigned PCP 07/16/23 Valery Veronica PA-C [address] [place] [address] Physician Field Marketing Manager Dermatology 09/19/23 Rey Tay MD [address] [place] [address] 577815 Gastroenterology 09/20/23 Rocky Zepeda DO [address] [place] [address] 015075 Physician Gastroenterology 09/20/23 Philip Dumont MD 516 [place] [address] Physician Ophthalmology 09/22/23 Meredith Carrera PA-C [address] [place] [address] Assigned Gastroenterology Provider 11/01/23 Neil Kent MD [address] 326360 MD Dermatology 11/02/23 [place] [address] [place], [place] 557317 Neurological Surgery 12/26/23 Audrey Waite PA-C [address] [place] [address] Physician Field Marketing Manager Dermatology 02/28/24 Valery Veronica PA-C 513657 [address] [place] [address] Physician Field Marketing Manager Dermatology 04/10/24 Herminia Hatch MD [address] [place] [address] [phone] Assigned Rheumatology Provider 07/02/24 Jelena David OD [address] [place] [address] [place] [address] Ophthalmology 08/30/24 [place] [address] [place] [address] Assigned Neuroscience Provider 09/30/24 Maru Man PA-C [address] [place] [address] Physician Field Marketing Manager Dermatology 10/03/24 Maru Man PA-C [address] [place] [address] Physician Field Marketing Manager Dermatology 10/22/24 Jelena David OD [address] [facility] [place] [address] Assigned Surgical Provider 10/31/24 Fabiano Correa NP [address] [place] [address] Assigned Heart and Vascular Provider 11/30/24 Walter Nowak MD [address] [place] [address] Physician Clinical Cardiac Electrophysiology 03/01/25 Liset Márquez MD [address] [place] [address] [place] [address] meals on wheels driver 03/13/25 Lauren Coronado, [facility] [address] [place] [address] [phone] Pharmacist Pharmacist 04/15/25 documented as of this encounter
--- OUTSIDE RECORDS SUMMARY | 2025-04-26 23:55 | XMS_ITS | Encounter Summary ---
Author Organization [place] Address [address] [place] [address] Care Team Providers Care Tribunal Member Name Role Phone Diana Desir [facility] Unavailable Rain Galaviz PA-C Unavailable Tavia Wyatt MD Unavailable [phone] Erica Farrell APRN SIGHT EFFECTS SPECIALIST Unavailable Rich Barrett MD Unavailable [phone] Neil Kent MD Unavailable Diana Desir [facility] Unavailable Livan Sharif MD Unavailable Catherine Cm MD Unavailable + Valery Veronica PA-C Unavailable Brea Quinn [facility] SIGHT EFFECTS SPECIALIST Unavailable Brea Quinn PAVIL[facility] SIGHT EFFECTS SPECIALIST Unavailable Jose Francisco Johnson MD Unavailable Alfonso Renteria MD Unavailable [phone] Esha Grimm PA-C Primary Care Provider Lomeli, Radha E P[facility]ILION C[facility]TER SIGHT EFFECTS SPECIALIST Unavailable Jelena David OD Unavailable [phone] Esha Grimm PA-C Unavailable [phone] Valery Veronica PA-C Unavailable Rey Tay [...] Liset Márquez MD Unavailable Lauren Coronado [facility] Unavailable Encounter Details Date Type Department Care Team (Late st Contact Info) Description 03/06/2024 [facility] Spine and Neurosurgery [address] [place] [phone] Ebony Cid, ARLENE SIGHT EFFECTS SPECIALIST 500 [place] [address] Social History Tobacco Use Types Packs/Day Years [...] attend [facility] or islam services? 1 to 4 [...] Legal Sex Female 4:13 AM DIRECTOR OF REVENUE CYCLE MANAGEMENT Gender Identity Female 03/02/2021 5:45 PM CDT Sexual Orientation Straight 02/28/2020 12 :51 AM CDT documented as of this encounter Plan of Treatment Upcoming Encounters Date Type Department Care Team (Late st Contact Info) Description 04/30/2025 10:30 AM CDT Office Visit [facility] Women[facility] [address], [address] [place] [phone] Liset Márquez MD [address] [facility] 300 [place] [address] 05/30/2025 2:45 PM DIRECTOR OF REVENUE CYCLE MANAGEMENT Office Visit [facility] Heart [facility] 6405 [facility] [address] [place] [address] [phone] Fabiano Correa, POOL COORDINATOR 6405 [place], [place] 032395 Walter Nowak MD 8118 [place], [place] 106565 08/07/2025 8:15 AM DIRECTOR OF REVENUE CYCLE MANAGEMENT Office Visit [facility] [address] [phone] Lucien Grimes MD [address] 005675 08/21/2025 9:00 AM DIRECTOR OF REVENUE CYCLE MANAGEMENT Office Visit [facility] [address] [phone] Neil Kent MD 500 [place], [place] 191055 10/09/2025 10:45 AM CDT Virtual Visit [facility] [place] 909 [facility] 4th [place] [phone] Meredith Carrera PA-C [address] [place] [address] 997945 documented as of this encounter Visit Diagnoses [...] documented as of this encounter Care Teams Tribunal Member Relationship Specialty Start Date End Date Esha Grimm PA-C [address] [place] [phone] PCP - General Family Medicine 05/04/23 Diana Desir, [facility] 3033 [place], [place] 337086 Pharmacist Pharmacist 04/17/21 Rain Galaviz PA-C [address] [place] [address] ENMA KNUTSON [address] Physician License Registration Examiner Dermatology 04/28/21 Tavia Wyatt MD [address] [place] [address] [place] KNUTSON [address] Dermatology 07/14/21 Erica Farrell APRN SIGHT EFFECTS SPECIALIST [address] 768145 Nurse Practitioner Cardiovascular Disease 09/09/21 Rich Barrett MD [address] [place] [address]455 Physician Ophthalmology 01/21/22 Neil Kent MD 500 [place], [place] 428105 Dermatology 02/24/22 Diana Desir, [facility] 3033 [place], [place] 354836 Assigned [facility] Pharmacist 04/07/22 Livan Sharif MD [address] [place] [address]15 Cardiovascular Disease 05/14/22 Catherine Cm MD [address] [place] 781325 Cardiovascular Disease 07/21/22 Valery Veronica, PA-C 909 [place], [place] 311535 Physician License Registration Examiner Dermatology 07/21/22 Brea Quinn APRN SIGHT EFFECTS SPECIALIST 500 [place], [place] 738265 Nurse Practitioner Dermatology 09/21/22 Brea Quinn APRN SIGHT EFFECTS SPECIALIST [address] [place] [address] [place] 439362 Assigned Surgical Provider 10/09/22 05/01/24 [place] [address] [place] [facility] 300 [place] [address] Assigned Musculoskeletal Provider 10/09/22 05/01/24 Alfonso Renteria MD [address] [facility] 200 [place] [address] Assigned Neuroscience Provider 04/02/23 09/29/24 Radha Lomeli APRN SIGHT EFFECTS SPECIALIST 6405 [facility] [address] [place] [address] Assigned Heart and Vascular Provider 05/28/23 11/29/24 Jelena David OD [address] [facility] [place] [address] Ophthalmology 06/15/23 Esha Grimm PA-C [address] [place] [phone] Assigned PCP 07/16/23 Valery Veronica PA-C [address] [place] [address] Physician License Registration Examiner Dermatology 09/19/23 Rey Tay MD [address] [place] [address] 437855 Gastroenterology 09/20/23 Rocky Zepeda DO [address] [place] [address] 433285 Physician Gastroenterology 09/20/23 Philip Dumont MD 516 [place] [address] Physician Ophthalmology 09/22/23 Meredith Carrera PA-C [address] [place] [address] Assigned Gastroenterology Provider 11/01/23 Neil Kent MD [address] 075480 MD Dermatology 11/02/23 [place] [address] [place] [address] Neurological Surgery 12/26/23 Audrey Waite PA-C [address] [place] [address] Physician License Registration Examiner Dermatology 02/28/24 Valery Veronica PA-C [id number] [place] [address] Physician License Registration Examiner Dermatology 04/10/24 Herminia Hatch MD [address] [place] [address] [phone] Assigned Rheumatology Provider 07/02/24 [place] [address] [place] [address] [place] KING [address] Ophthalmology 08/30/24 [place] [address] [place] [address] Assigned Neuroscience Provider 09/30/24 Maru Man PA-C [address] [place] [address] Physician License Registration Examiner Dermatology 10/03/24 Maru Man PA-C [address] [place] [address] Physician License Registration Examiner Dermatology 10/22/24 Jelena David OD [address] [facility] [place] [address] Assigned Surgical Provider 10/31/24 Fabiano Correa NP 6405 [facility] [address] Assigned Heart and Vascular Provider 11/30/24 Walter Nowak MD [address] [place] [address] Physician Clinical Cardiac Electrophysiology 03/01/25 Liset Márquez MD 606 [facility] Sylvia [facility] 300 [place] [address] handbag framer 03/13/25 Lauren Coronado, [facility] 909 [place], [place] 327965 Pharmacist Pharmacist 04/15/25 documented as of this encounter
--- OUTSIDE RECORDS SUMMARY | 2025-04-26 23:55 | XMS_ITS | Encounter Summary ---
Author Organization [place] Address [address] [place] [address]05 Care Team Providers Care Brake Engineer Name Role Phone Diana Desir [facility] Unavailable Rain Galaviz PA-C Unavailable Tavia Wyatt MD Unavailable [phone] Erica Farrell APRN RADIOTELEGRAPH OPERATOR Unavailable Rich Barrett MD Unavailable [phone] Neil Kent MD Unavailable Diana Desir [facility] Unavailable Livan Sharif MD Unavailable Catherine Cm MD Unavailable + Valery Veronica PA-C Unavailable Brea Quinn BIOINFORMATICS SUPPORT SPECIALIST RADIOTELEGRAPH OPERATOR Unavailable Brea Quinn BIOINFORMATICS SUPPORT SPECIALIST RADIOTELEGRAPH OPERATOR Unavailable Jose Francisco Johnson MD Unavailable Alfonso Renteria MD Unavailable [phone] Esha Grimm PA-C Primary Care Provider Lomeli, Radha E BIOINFORMATICS SUPPORT SPECIALIST RADIOTELEGRAPH OPERATOR Unavailable Jelena David OD Unavailable [phone] Esha Grimm PA-C Unavailable [phone] Valery Veronica PA-C Unavailable Rey Tay MD Unavailable Rocky Zepeda DO Unavailable Philip Dumont MD Unavailable Meredith Carrera PA-C Unavailable [phone] Neil Kent MD Unavailable Juan Pablo Emmanuel MD Unavailable Audrey Waite PA-C Unavailable JeremíasValery damon PA-C Unavailable Herminia Hatch MD Unavailable Jelena David OD Unavailable Juan Pablo Emmanuel MD Unavailable Maru Man PA-C Unavailable Maru Man PA-C Unavailable Jelena David OD Unavailable Fabiano Correa NP Unavailable Walter Nowak MD Unavailable Liset Márquez MD Unavailable Lauren Coronado [facility] Unavailable Encounter Details Date Type Department Care Team (Late st Contact Info) Description 03/05/2024 Alejandro Medical Connie [facility] Gastroenterology Clinic [address] 4th [place] [address] Rebecca Moctezuma Social History Tobacco [...] do you attend [facility] or anabaptist services? 1 to 4 [...] Score 1 02/07/2024 [facility] [...] exercise at this level? 30 min 03/10/2023 [place] Depression Scale Answer Date Recorded [place] Depression Score 5 01/14/2021 Last EPDS Self [...] PM CDT Legal Sex Female 4:13 AM BINDERY OPERATOR Gender Identity Female 03/02/2021 5:45 PM CDT Sexual Orientation Straight 02/28/2020 12 :51 AM CDT documented as of this encounter Plan of Treatment Upcoming Encounters Date Type Department Care Team (Late st Contact Info) Description 04/30/2025 10:30 AM CDT Office Visit [facility] Women's [place] [address], [address] 300 [place] [phone] Liset Márquez MD [address] [address] 05/30/2025 2:45 PM BINDERY OPERATOR Office Visit [facility] Heart [facility] [address] [phone] Fabiano Correa, FLIGHT OPERATIONS MANAGER 6405 [place], [place] 107535 Walter Nowak MD 2237 [place], [place] 108775 08/07/2025 8:15 AM BINDERY OPERATOR Office Visit [facility] Heart [place] 9[address]25 [address] [phone] Lucien Grimes MD [address] 819865 08/21/2025 9:00 AM BINDERY OPERATOR Office Visit [facility] [address] [phone] Neil Kent MD [address] [place] [address] 210405 10/09/2025 10:45 AM CDT Virtual Visit [facility] Gastroenterology Clinic [address] 4th [place] [address] Meredith Carrera PA-C [address] [place] [address] 789305 documented as of this encounter Visit Diagnoses [...] as of this encounter Care Teams Brake Engineer Relationship Specialty Start Date End Date Esha Grimm PA-C [address] [place] [address] PCP - General Family Medicine 05/04/23 [facility] 3033 [place] [address] Pharmacist Pharmacist 04/17/21 Rain Galaviz PA-C [address] [place] [address] [address] [place] [address] Physician Cell Plasterer Dermatology 04/28/21 Tavia Wyatt MD [address] [place] [address] [address] [place] [address] Dermatology 07/14/21 Erica Farrell APRN RADIOTELEGRAPH OPERATOR 6405 [facility] [address] [place] [address] Nurse Practitioner Cardiovascular Disease 09/09/21 Rich Barrett MD [address] [place], [place] 388415 Physician Ophthalmology 01/21/22 Neil Kent MD 500 [place] [address] Dermatology 02/24/22 [facility] 3033 [place] [address] Assigned [place] Pharmacist 04/07/22 Livan Sharif MD [address] [address] Cardiovascular Disease 05/14/22 Catherine Cm MD 6405 [facility] [address] [address] Cardiovascular Disease 07/21/22 Valery Veronica, PA-C 909 [place] [address] Physician Cell Plasterer Dermatology 07/21/22 Brea Quinn APRN RADIOTELEGRAPH OPERATOR 500 [place] [address] Nurse Practitioner Dermatology 09/21/22 Brea Quinn APRN RADIOTELEGRAPH OPERATOR [address] [place] [address] [place] [address] Assigned Surgical Provider 10/09/22 05/01/24 Jose [place] [address] [place] [address] [address] [place] [address] Assigned Musculoskeletal Provider 10/09/22 05/01/24 Alfonso Renteria MD [address] [facility] 200 [place] [address] Assigned Neuroscience Provider 04/02/23 09/29/24 Radha Lomeli APRN RADIOTELEGRAPH OPERATOR 6405 [facility] [address] [place] [address] Assigned Heart and Vascular Provider 05/28/23 11/29/24 Jelena David OD 3305 [facility] [place] [address] Ophthalmology 06/15/23 Esha Grimm PA-C [address] [place] [phone] Assigned PCP 07/16/23 Valery Veronica PA-C [address] [place] [address] 252155 Physician Cell Plasterer Dermatology 09/19/23 Rey Tay MD [address] [place] [address] 169185 Gastroenterology 09/20/23 Rocky Zepeda DO [address] [place] [address] 928565 Physician Gastroenterology 09/20/23 Philip Dumont MD [address] [place] [address] Physician Ophthalmology 09/22/23 Meredith Carrera PA-C [address] [place] [address] Assigned Gastroenterology Provider 11/01/23 Neil Kent MD [address] [address] Dermatology 11/02/23 [place] [address] [place] [address] Neurological Surgery 12/26/23 Audrey Waite PA-C [address] [place] [address] Physician Cell Plasterer Dermatology 02/28/24 Valery Veronica PA-C [address]73 [address] [place] [address] Physician Cell Plasterer Dermatology 04/10/24 Herminia Hatch MD [address] [place] [address] [phone] Assigned Rheumatology Provider 07/02/24 [place] [address] [place] [address] [place] K[place] [address] Ophthalmology 08/30/24 [place] [address] [place] [address] Assigned Neuroscience Provider 09/30/24 Maru Man PA-C [address] [place] [address] Physician Cell Plasterer Dermatology 10/03/24 Maru Man PA-C [address] [place] [address] Physician Cell Plasterer Dermatology 10/22/24 Jelena David OD 3305 [facility] [place] [address] Assigned Surgical Provider 10/31/24 Fabiano Correa NP [address] [place] [address] Assigned Heart and Vascular Provider 11/30/24 Walter Nowak MD [address] [place] [address] Physician Clinical Cardiac Electrophysiology 03/01/25 Liset Márquez MD [address] [facility] 300 [place] [address] filer helper 03/13/25 Lauren Coronado, [facility] 909 [place], [place] 399475 Pharmacist Pharmacist 04/15/25 documented as of this encounter
--- OUTSIDE RECORDS SUMMARY | 2025-04-26 23:55 | XMS_ITS | Encounter Summary ---
Author Organization [place] Address [address] [place] [address] Care Team Providers Care Acid Mixer Name Role Phone Diana Desir [facility] Unavailable Rain Galaviz PA-C Unavailable Tavia Wyatt MD Unavailable [phone] Erica Farrell APRN REFRIGERATION TECH Unavailable Rich Barrett MD Unavailable [phone] Neil Kent MD Unavailable Diana Desir [facility] Unavailable Livan Sharif MD Unavailable Catherine Cm MD Unavailable + Valery Veronica PA-C Unavailable Brea Quinn SUPERVISOR SHIPFITTERS REFRIGERATION TECH Unavailable Brea Quinn SUPERVISOR SHIPFITTERS REFRIGERATION TECH Unavailable Jose Francisco Johnson MD Unavailable Alfonso Renteria MD Unavailable [phone] Esha Grimm PA-C Primary Care Provider Lomeli, Radha E SUPERVISOR SHIPFITTERS REFRIGERATION TECH Unavailable [phone] Jelena David OD Unavailable [phone] Esha Grimm PA-C Unavailable [phone] Valery Veronica PA-C Unavailable Rey Tay [...] Unavailable Liset Márquez MD Unavailable Lauren Coronado [facility] Unavailable [phone] Encounter Details Date Type Department Care Team (Late st Contact Info) Description 02/28/2024 [facility] Gastroenterology Clinic [address] 4th [place] [address] Rain Burnette, RN Social History [...] exercise at this level? 30 min 03/10/2023 [place] Depression Scale Answer Date Recorded [place] Depression Score 5 01/14/2021 Last EPDS Self [...] PM CDT Legal Sex Female 4:13 AM PLAYER DEVELOPMENT MANAGER Gender Identity Female 03/02/2021 5:45 PM CDT Sexual Orientation Straight 02/28/2020 12 :51 AM CDT documented as of this encounter Plan of Treatment Upcoming Encounters Date Type Department Care Team (Late st Contact Info) Description 04/30/2025 10:30 AM CDT Office Visit [facility] [address], [address] [place] [phone] Liset Márquez MD [address] [address] 05/30/2025 2:45 PM PLAYER DEVELOPMENT MANAGER Office Visit [facility] Heart [facility] [address] [phone] Fabiano Correa, CERTIFIED PROFESSIONAL CONTROLLER 6405 [place], [place] 709[address] Walter Nowak MD 8670 [place], [place] 797025 08/07/2025 8:15 AM PLAYER DEVELOPMENT MANAGER Office Visit [facility] Heart [facility] [address] [phone] Lucien Grimes MD [address] 566[address] 08/21/2025 9:00 AM PLAYER DEVELOPMENT MANAGER Office Visit [facility] [address] [phone] Neil Kent MD [address] [place] [address] 641495 10/09/2025 10:45 AM CDT Virtual Visit [facility] Gastroenterology Clinic [address] 4th [place] [address] Meredith Carrera PA-C [address] [place] [address] 450975 documented as of this encounter Visit Diagnoses [...] as of this encounter Care Teams Acid Mixer Relationship Specialty Start Date End Date Esha Grimm PA-C [address] [place] [phone] PCP - General Family Medicine 05/04/23 [facility] 3033 [place], [place] 6523[address] Pharmacist Pharmacist 04/17/21 Rain Galaviz PA-C [address] [place] [address] [address] [place] [address] Physician Gang Ripsaw Operator Dermatology 04/28/21 Tavia Wyatt MD [address] [place] [address] [address] [facility] [address] Dermatology 07/14/21 Erica Farrell APRN REFRIGERATION TECH 6405 [facility] [address] [place] [address] Nurse Practitioner Cardiovascular Disease 09/09/21 Rich Barrett MD [address] [place], [place] 824375 Physician Ophthalmology 01/21/22 Neil Kent MD 500 [place] [address] Dermatology 02/24/22 [facility] 3033 [place] [address] Assigned [place] Pharmacist 04/07/22 Livan Sharif MD [address] [place] [address] Cardiovascular Disease 05/14/22 Catherine Cm MD [address] [facility] [address] [place] [address] Cardiovascular Disease 07/21/22 Valery Veronica, PA-C 909 [place] [address] Physician Gang Ripsaw Operator Dermatology 07/21/22 Brea Quinn APRN REFRIGERATION TECH 500 [place] [address] Nurse Practitioner Dermatology 09/21/22 Brea Quinn APRN REFRIGERATION TECH [address] [place] [address] Assigned Surgical Provider 10/09/22 05/01/24 [place] [address] [place] [address] Assigned Musculoskeletal Provider 10/09/22 05/01/24 Alfonso Renteria MD [address] [place] [facility] 200 [place] [address] Assigned Neuroscience Provider 04/02/23 09/29/24 Radha Lomeli, SUPERVISOR SHIPFITTERS REFRIGERATION TECH 6405 [facility] [address] [place], [place] 215855 Assigned Heart and Vascular Provider 05/28/23 11/29/24 Jelena David OD [address] [facility] [place] [address] Ophthalmology 06/15/23 Esha Grimm PA-C [address] [place] [phone] Assigned PCP 07/16/23 Valery Veronica PA-C [address] [place] [address] 841515 Physician Gang Ripsaw Operator Dermatology 09/19/23 Rey Tay MD [address] [place] [address] 451375 Gastroenterology 09/20/23 Rocky Zepeda DO [address] [place] [address] 634085 Physician Gastroenterology 09/20/23 Philip Dumont MD [address] [place] [address] Physician Ophthalmology 09/22/23 Meredith Carrera PA-C [address] [place] [address] Assigned Gastroenterology Provider 11/01/23 Neil Kent MD [address] [place] [address] Dermatology 11/02/23 [place] [address] [place] [place] [address] Neurological Surgery 12/26/23 Audrey Waite PA-C [address] [place] [address] Physician Gang Ripsaw Operator Dermatology 02/28/24 Valery Veronica PA-C 56[address]87 [address] [place] [address] Physician Gang Ripsaw Operator Dermatology 04/10/24 Herminia Hatch MD [address] [place] [address] [id number] Assigned Rheumatology Provider 07/02/24 [place] [address] [place] [address] [place] K[place] [address] Ophthalmology 08/30/24 [place] [address] [address] [place] [address] Assigned Neuroscience Provider 09/30/24 Maru Man PA-C [address] [place] [address] Physician Gang Ripsaw Operator Dermatology 10/03/24 Maru Man PA-C [address] [place] [address] Physician Gang Ripsaw Operator Dermatology 10/22/24 Jelena David OD [address] [facility] [place] [address] Assigned Surgical Provider 10/31/24 Fabiano Correa NP [address]405 [place] [address] Assigned Heart and Vascular Provider 11/30/24 Walter Nowak MD [address]405 [place] [address] Physician Clinical Cardiac Electrophysiology 03/01/25 Liset Márquez MD [address] [facility] 300 [place] [address] flash welding machine operator 03/13/25 Lauren Coronado, [facility] 909 [place], [place] [phone] Pharmacist Pharmacist 04/15/25 documented as of this encounter
--- OUTSIDE RECORDS SUMMARY | 2025-04-26 23:55 | XMS_ITS | Encounter Summary ---
Author Organization [place] Address [address] [place] [address] Care Team Providers Care Lathe Operator Contact Lens Name Role Phone Marija Edgar APRN DECK AND HULL ASSEMBLER Primary Care Provider + Marija Edgar APRN DECK AND HULL ASSEMBLER Unavailable Keisha Dotson MD Unavailable Diana Desir [facility] Unavailable Rain Galaviz PA-C Unavailable Tavia Wyatt MD Unavailable Erica Farrell APRN DECK AND HULL ASSEMBLER Unavailable Rich Barrett MD Unavailable [phone] Neil Kent MD Unavailable Diana Desir [facility] Unavailable [phone] Livan Sharif MD Unavailable Catherine Cm MD Unavailable + Valery Veronica PA-C Unavailable Brea Quinn APRN DECK AND HULL ASSEMBLER Unavailable Brea Quinn INSURANCE CLAIMS SUPERVISOR DECK AND HULL ASSEMBLER Unavailable Jose Francisco Johnson MD Unavailable Catherine Cm MD Unavailable + Sydnie Martinez RN Unavailable Unavailable Alfonso Renteria MD Unavailable [phone] Esha Grimm PA-C Primary Care Provider Cheng Todd PA-C Unavailable Radha Lomeli APRN, CNP Unavailable Jelena David OD Unavailable Pao Joseph RN Unavailable Unavailable Esha Grimm PA-C Unavailable [phone] JeremíasValery damon PA-C Unavailable Rey Tay [...] Márquez MD Unavailable Lauren Coronado [facility] Unavailable [phone] Encounter Details Date Type Department Care Team (Late st Contact Info) Description 03/29/2023 MyC Medical Advice [address] [address] Diana Desir, [facility] [address] [place] [address] Social History Tobacco Use Types Packs/Day Years [...] Answer Date Recorded PHQ-2 Score 0 03/10/2023 [facility] of Occupat ional [...] a care home (including now)? No 03/10/2023 [place] Depression Scale Answer Date Recorded [place] Depression Score 5 01/14/2021 Last EPDS Self Harm Result Not on file 01/14 Education Answer Date Recorded What is the highest level of school you have completed or the highest degree you have received? 12th grade 08/07/2020 Comments No Sex and Gender Information Value Date Recorded Sex Assigned at Female 03/02/2021 5:45 PM CDT Legal Sex Female 4:13 AM ARMATURE WINDER REPAIRER Gender Identity Female 03/02/2021 5:45 PM [...] Description 04/30/2025 10:30 AM CDT Office Visit [facility] [address], [address] [place] [address] Liset Márquez MD [address] [address] 05/30/2025 2:45 PM ARMATURE WINDER REPAIRER Office Visit [facility] 6[address] [facility] [address] [place] [phone] Fabiano Correa, BRYCE [address] [place] [place] [address] Walter Nowak MD [address] [place], [place] [address] 08/07/2025 8:15 AM ARMATURE WINDER REPAIRER Office Visit [facility] [address] [place] [phone] Lucien Grimes MD [address] [place] [address] 08/21/2025 9:00 AM ARMATURE WINDER REPAIRER Office Visit [facility] [address] [phone] Neil Kent MD 500 [place], [place] [address] 10/09/2025 10:45 AM CDT Virtual Visit [facility] Gastroenterology [facility] 909 [facility] 4th [place] [phone] Meredith Carrera PAUcheC [address] [place] [address] documented as of this encounter Visit Diagnoses [...] as of this encounter Care Teams Lathe Operator Contact Lens Relationship Specialty Start Date End Date Marija Edgar APRN DECK AND HULL ASSEMBLER PCP - General Nurse Practitioner 04/30/20 04/14/23 Esha Grimm PA-C [address] [place] [phone] PCP - General Family Medicine 05/04/23 Marija Edgar APRN DECK AND HULL ASSEMBLER Assigned PCP 06/08/20 04/29/23 Keisha Dotson MD 909 [place] [address] Assigned Neuroscience Provider 06/04/20 04/01/23 [facility] 3033 [place] [address] Pharmacist Pharmacist 04/17/21 Rain Galaviz PA-C [address] [place] [address] [address] [place] [address] Physician Gear Design Engineer Dermatology 04/28/21 Tavia Wyatt MD [address] [place] [address] [address] [place] [address] Dermatology 07/14/21 Erica Farrell APRN DECK AND HULL ASSEMBLER [address] [facility] [address] [place] [address] Nurse Practitioner Cardiovascular Disease 09/09/21 Rich Barrett MD [address] [place] [address] Physician Ophthalmology 01/21/22 Neil Kent MD 500 [place] [address] Dermatology 02/24/22 [facility] 3033 [place] [address] Assigned [place] Pharmacist 04/07/22 Livan Sharif MD [address] [address] Cardiovascular Disease 05/14/22 Catherine Cm MD 6405 [facility] [address] [address] Cardiovascular Disease 07/21/22 Valery Veronica, PA-C 909 [place] [address] Physician Gear Design Engineer Dermatology 07/21/22 Brea Quinn APRN DECK AND HULL ASSEMBLER 500 [place] [address] Nurse Practitioner Dermatology 09/21/22 Brea Quinn APRN DECK AND HULL ASSEMBLER [address] [place] [address] [place] [address] Assigned Surgical Provider 10/09/22 05/01/24 [place] [address] [place] [address] Assigned Musculoskeletal Provider 10/09/22 05/01/24 Catherine Cm MD [address] [facility] [address] [place] [address] Assigned Heart and Vascular Provider 11/13/22 05/27/23 Sydnie Martinez RN Personal Advocate & Liaison (PAL) Family Medicine 03/28/23 07/31/23 Alfonso Renteria MD 5775 [facility] 200 [place] [address] Assigned Neuroscience Provider 04/02/23 09/29/24 Cheng Todd PA-C [address] [place] [address] Assigned PCP 04/30/23 07/15/23 Radha Lomeli APRN DECK AND HULL ASSEMBLER [address] [place] [address] Assigned Heart and Vascular Provider 05/28/23 11/29/24 Jelena David OD [address] [facility] [place] [address] Ophthalmology 06/15/23 Pao Joseph, VJ Personal Advocate & Liaison (PAL) Nurse 08/01/23 11/07/23 Esha Grimm PA-C [address] [place] [address] Assigned PCP 07/16/23 Valery Veronica PA-C [address] [place] [address] Physician Gear Design Engineer Dermatology 09/19/23 Rey Tay MD [address] [place] [address] MD Gastroenterology 09/20/23 Rocky Zepeda DO [address] [place] [address] Physician Gastroenterology 09/20/23 Philip Dumont MD [address] [place] [address] Physician Ophthalmology 09/22/23 Meredith Carrera PA-C [address] [place] [address] Assigned Gastroenterology Provider 11/01/23 Neil Kent MD [address] [address] Dermatology 11/02/23 [place] [address] [place] [address] Neurological Surgery 12/26/23 Audrey Waite PA-C [address] [place] [address] 733315 Physician Gear Design Engineer Dermatology 02/28/24 Valery Veronica PA-C 743094 [address], [place] [address] Physician Gear Design Engineer Dermatology 04/10/24 Herminia Hatch MD [facility]5 [place], [place] [address] Assigned Rheumatology Provider 07/02/24 Jelena David, SONJA [address] [facility] [place] [address] Ophthalmology 08/30/24 [place] [address] [place] [address] Assigned Neuroscience Provider 09/30/24 Maru Man PA-C [address] [place] [address] Physician Gear Design Engineer Dermatology 10/03/24 Maru Man PA-C [address] [place] [address] Physician Gear Design Engineer Dermatology 10/22/24 Jelena David, SONJA [address] [facility] [address] Assigned Surgical Provider 10/31/24 Fabiano Correa, BRYCE [address] [place] [address] Assigned Heart and Vascular Provider 11/30/24 Walter Nowak MD [address] [place] [address] Physician Clinical Cardiac Electrophysiology 03/01/25 Liset Márquez MD [address] [place] [address] applied exercise physiologist 03/13/25 Lauren Coronado, [facility] 909 [place], [place] [address] Pharmacist Pharmacist 04/15/25 documented as of this encounter
--- OUTSIDE RECORDS SUMMARY | 2025-04-26 23:55 | XMS_ITS | Encounter Summary ---
Author Organization [facility] Address [address] [place] [address] Care Team Providers Care Criminal Defense Attorney Name Role Phone Lita Oseguera Unavailable Unavailable Marija Edgar APRN PRESIDENT ERGONOMIC CONSULTING Primary Care Provider + Marija Edgar APRN PRESIDENT ERGONOMIC CONSULTING Unavailable [phone] Mynor Broussard MD Unavailable [phone] Keisha Dotson MD Unavailable [phone] Galo Burrell MD Unavailable Unavailable Diana Desir [facility] Unavailable Rain Galaviz PA-C Unavailable Summer Lara MD Unavailable [phone] Tavia Wyatt MD Unavailable Johnyn Murillo MD Unavailable Erica Farrell APRN PRESIDENT ERGONOMIC CONSULTING Unavailable Tavia Wyatt MD Unavailable Diana Desir [facility] Unavailable Rich Barrett MD Unavailable [phone] Neil Kent MD Unavailable Roney StoryM Unavailable Erica Farrell MOLD BUNCH TRIMMER PRESIDENT ERGONOMIC CONSULTING Unavailable Diana Desir [facility] Unavailable [phone] Jelena David OD Unavailable Galo Burrell MD Unavailable Unavailable Livan Sharif MD Unavailable Livan Sharif MD Unavailable Catherine Cm MD Unavailable + Valery Veronica PA-C Unavailable [phone] Catherine Cm MD Unavailable + Johnny Murillo MD Unavailable [phone] Brea Quinn MOLD BUNCH TRIMMER PRESIDENT ERGONOMIC CONSULTING Unavailable [phone] Brea Quinn MOLD BUNCH TRIMMER PRESIDENT ERGONOMIC CONSULTING Unavailable [phone] Jose Francisco Johnson MD Unavailable Livan Sharif MD Unavailable + IsCatherine hobbs MD Unavailable + Sydnie Martinez RN Unavailable Unavailable Alfonso Renteria MD Unavailable Esha Grimm PA-C Primary Care Provider Cheng Todd PA-C Unavailable Radha Lomeli MOLD BUNCH TRIMMER PRESIDENT ERGONOMIC CONSULTING Unavailable [phone] Jelena David OD Unavailable [phone] Pao Joseph RN Unavailable Unavailable Esha Grimm PA-C Unavailable [phone] Valery Veronica PA-C Unavailable [phone] Rey Tay MD Unavailable Rocky Zepeda DO Unavailable Philip Dumont MD Unavailable [phone] Meredith Carrera PA-C Unavailable Neil Kent MD Unavailable Juan Pablo Emmanuel MD Unavailable Audrey Waite PA-C Unavailable Valery Veronica PA-C Unavailable [phone] Herminia Hatch MD Unavailable Jelena David OD Unavailable [phone] Juan Pablo Emmanuel MD Unavailable Maru Man-C Unavailable [phone] Maru Man-C Unavailable [phone] Jelena David OD Unavailable Fabiano Correa NP Unavailable Walter Nowak MD Unavailable Liset Márquez MD Unavailable Lauren Coronado [facility] Unavailable [phone] Encounter Details Date Type Department Care Team (Late st Contact Info) Description 10/17/2021 MyC Medical Advice [address] [address] Diana Desir, [facility] [address] [place], [place] [phone] Social History Tobacco Use Types Packs/Day Years [...] How often do you attend sikh or pentecostal serv ices? Never 09/22/2021 Do [...] Answer Date Recorded PHQ-2 Score 2 09/22/2021 [facility] of Occupat ional Health - [...] in a half-way (including now)? No 09/22/2021 [place] Depression Scale Answer Date Recorded [place] Depression Score 5 01/14/2021 Last EPDS Self Harm Result Not on file 01/14 Education Answer Date Recorded What is the highest level of school you have completed or the highest degree you have received? 12th grade 08/07/2020 Comments No Sex and Gender Information Value Date Recorded Sex Assigned at Female 03/02/2021 5:45 PM CDT Legal Sex Female 4:13 AM SMOKING TOBACCO PACKER HAND Gender Identity Female 03/02/2021 5:45 PM [...] Care Team (Taylor munoz Contact Info) Description 04/30/2025 10:30 AM CDT Office Visit [facility] [address], [address] [place] [phone] Liste Márquez MD [address] [facility] 300 [place] [address] 05/30/2025 2:45 PM SMOKING TOBACCO PACKER HAND Office Visit [facility] Heart [facility] 6405 [facility] [address] [place] [phone] Fabiano Correa, PRECISION LENS CENTERER AND EDGER 8365 [place], [place] 07[address] Walter Nowak MD 4025 [place], [place] [address] 08/07/2025 8:15 AM SMOKING TOBACCO PACKER HAND Office Visit [facility] Heart [facility] [address] [address] Lucien Grimes MD [address] 1594[address] 08/21/2025 9:00 AM SMOKING TOBACCO PACKER HAND Office Visit [facility] [address] [phone] Neil Kent MD 500 [place], [place] [phone] 10/09/2025 10:45 AM CDT Virtual Visit [facility] [place] 909 [facility] 4th [place] [phone] Meredith Carrera PA-C [address] [place] [address] documented as of this encounter Visit Diagnoses Not on filedocumented in this encounter Additional Health Concerns Infection Onset Date Last Indicated Resolved Time Rule Out COVID-19 12/18/2021 12/18/2021 12/19/2021 11:34 AM CDT Rule Out COVID-19 02/24/2022 02/24/2022 02/25/2022 1:08 PM CDT Rule Out COVID-19 04/26/2022 04/26/2022 04/26/2022 6:47 AM CDT Rule Out COVID-19 05/17/2022 05/17/2022 05/17/2022 10:20 PM SMOKING TOBACCO PACKER HAND Rule Out COVID-19 06/09/2022 06/09/2022 06/09/2022 9:35 AM SMOKING TOBACCO PACKER HAND COVID-19 06/09/2022 06/09/2022 06/30/2022 11:4 1 PM SMOKING TOBACCO PACKER HAND Rule Out COVID-19 11/10/2022 11/10/2022 11/11/2022 [...] documented as of this encounter Care Teams Criminal Defense Attorney Relationship Specialty Start Date End Date Marija Edgar APRN PRESIDENT ERGONOMIC CONSULTING PCP - General Nurse Practitioner 04/30/20 04/14/23 Esha Grimm PA-C [address] [place] [phone] PCP - General Family Medicine 05/04/23 Lita Oseguera Personal Advocate & Liaison (PAL) 02/28/20 03/27/23 Marija Edgar APRN PRESIDENT ERGONOMIC CONSULTING Assigned PCP 06/08/20 04/29/23 Mynor Broussard MD 909 [place], [place] 857085 Assigned Surgical Provider 06/01/20 11/28/21 Keisha Dotson MD 909 [place], [place] 427685 Assigned Neuroscience Provider 06/04/20 04/01/23 Galo Burrell MD Assigned Heart and Vascular Provider 10/05/20 04/02/22 Diana Desir, [facility] [address] [place] [address] Pharmacist Pharmacist 04/17/21 Rain Galaviz PA-C [address] [place] [address] [address] Physician Copywriter Dermatology 04/28/21 Summer Lara MD [address] [place], [place] 934384 Assigned OBGYN Provider 05/31/21 2 Tavia Wyatt MD [address] [place] [address] 228[address] Dermatology 07/14/21 Johnny Murillo MD [facility] [address] [place], [place] [address] Assigned Musculoskeletal Provider 08/30/21 03/17/22 Erica Farrell APRN PRESIDENT ERGONOMIC CONSULTING 6[address] [facility] [address] [place] [address] Nurse Practitioner Cardiovascular Disease 09/09/21 Tavia Wyatt MD [address] [place] [address] Assigned Surgical Provider 11/29/21 05/07/22 [facility] [address] [place] [address] Assigned MTM Pharmacist 01/02/22 Rich Barrett MD [address] [place] [address] Physician Ophthalmology 01/21/22 Neil Kent MD 500 [place], [place] 7915[address] Dermatology 02/24/22 Roney Story DPM [address] [facility] [address] [place], [place] 5364[address] Assigned Musculoskeletal Provider 03/20/22 08/13/22 Erica Farrell APRN PRESIDENT ERGONOMIC CONSULTING 1700 [place] [address] Assigned Heart and Vascular Provider 04/03/22 04/16/22 Diana Desir, [facility] 3033 [place] [address] Assigned MTM Pharmacist 04/07/22 Jelena David OD [address] [facility] [address] Assigned Surgical Provider 05/08/22 10/08/22 Galo Burrell MD Assigned Heart and Vascular Provider 04/17/22 06/11/22 Livan Sharif MD [address] [place] [address] Cardiovascular Disease 05/14/22 Livan Sharif MD [address] [place] [address] Assigned Heart and Vascular Provider 06/12/22 07/23/22 Catherine Cm MD [address] [place] [address] Cardiovascular Disease 07/21/22 Valery Veronica, PA-C 909 [place] [address] Physician Copywriter Dermatology 07/21/22 Catherine Cm MD [address] [facility] [address] [place] [address] Assigned Heart and Vascular Provider 07/24/22 11/05/22 Johnny Murillo MD [address] [address]33[address] Assigned Musculoskeletal Provider 08/14/22 10/08/22 Brea Quinn APRN PRESIDENT ERGONOMIC CONSULTING 500 [place], [place] [address] Nurse Practitioner Dermatology 09/21/22 Brea Quinn APRN PRESIDENT ERGONOMIC CONSULTING 6401 [facility] [place] [address] Assigned Surgical Provider 10/09/22 05/01/24 [place] [address] 810387 Assigned Musculoskeletal Provider 10/09/22 05/01/24 Livan Sharif MD [address] [place] 7429500 [place] [address] Assigned Heart and Vascular Provider 11/06/22 11/12/22 Catherine Cm MD [address] [facility] [address] [place] 368485 Assigned Heart and Vascular Provider 11/13/22 05/27/23 Sydnie Martinez RN Personal Advocate & Liaison (PAL) Family Medicine 03/28/23 07/31/23 Alfonso Renteria MD [address] [facility] [address] [place] [address] Assigned Neuroscience Provider 04/02/23 09/29/24 Cheng Todd PA-C [address] [place] [address] Assigned PCP 04/30/23 07/15/23 Radha Lomeli, MOLD BUNCH TRIMMER PRESIDENT ERGONOMIC CONSULTING [address] [facility] [address] [place], [place] [address] Assigned Heart and Vascular Provider 05/28/23 11/29/24 Jelena David OD [address] [facility] [address] [place] [phone] Ophthalmology 06/15/23 Pao Joseph, RN Personal Advocate & Liaison (PAL) Nurse 08/01/23 11/07/23 Esha Grimm PA-C [address] [place] [address] Assigned PCP 07/16/23 Valery Veronica PA-C [address] [place] [address] Physician Copywriter Dermatology 09/19/23 Rey Tay MD [address] [place] [address]16[address] Gastroenterology 09/20/23 Rocky Zepeda DO [address] [place] [address] 359645 Physician Gastroenterology 09/20/23 Philip Dumont MD 516 [place] [address] Physician Ophthalmology 09/22/23 Meredith Carrera PA-C [address] [place] [address] Assigned Gastroenterology Provider 11/01/23 Neil Kent MD [address] 867390 MD Dermatology 11/02/23 [place] [address] [place] [address] Neurological Surgery 12/26/23 Audrey Waite PA-C [address] [place] [address] Physician Copywriter Dermatology 02/28/24 Valery Veronica PA-C [address]69 [address] [place] [address] Physician Copywriter Dermatology 04/10/24 Herminia Hatch MD [address] [place] [address] 60691125 Assigned Rheumatology Provider 07/02/24 [place] [address] [place] [address] [place] [address] Ophthalmology 08/30/24 [place] [address] [place] [address] Assigned Neuroscience Provider 09/30/24 Maru Man PA-C [address] [place] [address] Physician Copywriter Dermatology 10/03/24 Maru Man PA-C [address] [place] [address] Physician Copywriter Dermatology 10/22/24 Jelena David OD [address] [facility] [place] [address] Assigned Surgical Provider 10/31/24 Fabiano Correa NP 6405 [facility] [place] [address] Assigned Heart and Vascular Provider 11/30/24 Walter Nowak MD [address] [place] [address] Physician Clinical Cardiac Electrophysiology 03/01/25 Liset Márquez MD 606 [facility] Sylvia [facility] 300 [place] [address] riding double 03/13/25 Lauren Coronado, [facility] 909 [place], [place] 57[address] Pharmacist Pharmacist 04/15/25 documented as of this encounter
--- OUTSIDE RECORDS SUMMARY | 2025-04-26 23:55 | XMS_ITS | Encounter Summary ---
Author Organization [facility] Address [address] [place] [address] Care Team Providers Care Rainbow Trout Farm Manager Name Role Phone Marija Edgar APRN GEOGRAPHIC INFORMATION SYSTEMS DIRECTOR Primary Care Provider + Marija Edgar APRN GEOGRAPHIC INFORMATION SYSTEMS DIRECTOR Unavailable Diana Desir [facility] Unavailable Rain Galaviz PA-C Unavailable Tavia Wyatt MD Unavailable Erica Farrell APRN GEOGRAPHIC INFORMATION SYSTEMS DIRECTOR Unavailable Rich Barrett MD Unavailable [phone] Neil Kent MD Unavailable Diana Desir [facility] Unavailable Livan Sharif MD Unavailable Catherine Cm MD Unavailable + Valery Veronica PA-C Unavailable Brea Quinn APRN GEOGRAPHIC INFORMATION SYSTEMS DIRECTOR Unavailable Brea Quinn APRN, CNP Unavailable Jose Francisco Johnson MD Unavailable Catherine Cm MD Unavailable + Sydnie Martinez RN Unavailable Unavailable Alfonso Renteria MD Unavailable [phone] Esha Grimm PA-C Primary Care Provider Cheng Todd PA-C Unavailable Armani Radha Stovall ARLENE GEOGRAPHIC INFORMATION SYSTEMS DIRECTOR Unavailable Jelena David OD Unavailable Pao [...] Nowak MD Unavailable Liset Márquez MD Unavailable MakirolandamariliaAjayen Elie [facility] Unavailable Encounter Details Date Type Department Care Team (Late st Contact Info) Description 04/12/2023 MyC Medical Advice [facility] [address] [facility] [address] [place] [address] Livan Sharif MD [address] [facility] [address] [place], [place] [phone] Social History Tobacco Use Types Packs/Day Years [...] Score 0 03/10/2023 [facility] [place] of Occupat ional Health - [...] slept in a retirement (including now)? No 03/10/2023 [place] Depression Scale Answer Date Recorded [...] CDT Legal Sex Female 4:13 AM SENIOR APPLICATIONS DEVELOPER Gender Identity Female 03/02/2021 5:45 PM [...] Thank you. Kim Swann, We are in [place], but asked a tech here to check the photo. He said the spot you chose is OK but he thinks we should have the [employer] techs check in with you as you may need to have some extra prep gelif you have have issues with the pads. We are reaching out to that [employer] team to let them know you are having some issues. Team [address] [place] [address] Sharif [phone] documented in this encounter Plan of Treatment Upcoming Encounters Date Type Department Care Team (Late st Contact Info) Description 04/30/2025 10:30 AM CDT Office Visit [facility] [address], [address], [address] [place] [phone] Liset Márquez MD [address] [facility] 300 [place] [address] 05/30/2025 2:45 PM SENIOR APPLICATIONS DEVELOPER Office Visit [facility] [address] [phone] Fabiano Correa, BRYCE [address] [place], [place] 190445 Walter Nowak MD 1576 [place], [place] 130335 08/07/2025 8:15 AM SENIOR APPLICATIONS DEVELOPER Office Visit [facility] [address] [phone] Lucien Grimes MD [address] [address]48[address] 08/21/2025 9:00 AM SENIOR APPLICATIONS DEVELOPER Office Visit [facility] [address] [address] Neil Kent MD 500 [place] [address] 10/09/2025 10:45 AM CDT Virtual Visit [facility] [place] [id number] [facility] 4th [place] [phone] Meredith Carrera PA-C [address] [place] [address] documented as of this encounter Visit Diagnoses [...] documented as of this encounter Care Teams Rainbow Trout Farm Manager Relationship Specialty Start Date End Date Marija Edgar APRN GEOGRAPHIC INFORMATION SYSTEMS DIRECTOR PCP - General Nurse Practitioner 04/30/20 04/14/23 Esha Grimm PA-C [address] [place] [address] PCP - General Family Medicine 05/04/23 Marija Edgar APRN GEOGRAPHIC INFORMATION SYSTEMS DIRECTOR Assigned PCP 06/08/20 04/29/23 Diana Desir [facility] [address] [place] [address] Pharmacist Pharmacist 04/17/21 Rain Galaviz PA-C [address] [place] [address] [address] [place] [address] Physician Imaging Science Professor Dermatology 04/28/21 Tavia Wyatt MD [address] [place] [address] DR RA[address] [facility] [address] [facility] [place] [address] Dermatology 07/14/21 Erica Farrell APRN GEOGRAPHIC INFORMATION SYSTEMS DIRECTOR [address] [place] [address] Nurse Practitioner Cardiovascular Disease 09/09/21 Rich Barrett MD [address] [place] [address] Physician Ophthalmology 01/21/22 Neil Kent MD 500 [place] [address] Dermatology 02/24/22 Diana Desir, [facility] [address] [place] [address] Assigned MTM Pharmacist 04/07/22 Livan Sharif MD [address] [facility] [address] [place] [id number] Cardiovascular Disease 05/14/22 Catherine Cm MD [address] [facility] [address] [place] [address] Cardiovascular Disease 07/21/22 Valery Veronica PA-C 909 [place], [place] [address]405 Physician Imaging Science Professor Dermatology 07/21/22 Brea Quinn APRN GEOGRAPHIC INFORMATION SYSTEMS DIRECTOR [address] [place] [address] [phone] Nurse Practitioner Dermatology 09/21/22 Brea Quinn APRN GEOGRAPHIC INFORMATION SYSTEMS DIRECTOR [address] [place], [place] 847972 Assigned Surgical Provider 10/09/22 05/01/24 [place] [address] [address] Assigned Musculoskeletal Provider 10/09/22 05/01/24 Catherine Cm MD [address] [place] [id number] [place] [address] Assigned Heart and Vascular Provider 11/13/22 05/27/23 Sydnie Martinez RN Personal Advocate & Liaison (PAL) Family Medicine 03/28/23 07/31/23 Alfonso Renteria MD [address] [facility] 200 [place], [place] 581156 Assigned Neuroscience Provider 04/02/23 09/29/24 Cheng Todd PA-C [address] [place] [address] [phone] Assigned PCP 04/30/23 07/15/23 Radha Lomeli APRN GEOGRAPHIC INFORMATION SYSTEMS DIRECTOR [address] [facility] [address] [place] [address] Assigned Heart and Vascular Provider 05/28/23 11/29/24 Jelena David OD [address] [facility] [address] [place] [id number] Ophthalmology 06/15/23 Pao Joseph, VJ Personal Advocate & Liaison (PAL) Nurse 08/01/23 11/07/23 Esha Grimm PA-C [address] [place] [phone] Assigned PCP 07/16/23 Valery Veronica PA-C [address] [place] [address] Physician Imaging Science Professor Dermatology 09/19/23 Rey Tay MD [address] [place] [address] Gastroenterology 09/20/23 Rocky Zepeda DO [address] [place] [address] 041315 Physician Gastroenterology 09/20/23 Philip Dumont MD [address] [place] [address] 458805 Physician Ophthalmology 09/22/23 Meredith Carrera PA-C 909 [place] [address] Assigned Gastroenterology Provider 11/01/23 Neil Kent MD [address] [address] MD Dermatology 11/02/23 [place] [address] [place] [address] Neurological Surgery 12/26/23 Audrey Waite PA-C 500 [place] [address] Physician Imaging Science Professor Dermatology 02/28/24 Valery Veronica PA-C 09[address]98 [address] [address] Physician Imaging Science Professor Dermatology 04/10/24 Herminia Hatch MD [facility] [place], [place] [phone] Assigned Rheumatology Provider 07/02/24 [place] [address] [place] [address] [place] [address] Ophthalmology 08/30/24 [place] [address] [place] [address] Assigned Neuroscience Provider 09/30/24 Maru Man PA-C [address] [place] [address] Physician Imaging Science Professor Dermatology 10/03/24 Maru Man PA-C [address] [place] [address] Physician Imaging Science Professor Dermatology 10/22/24 Jelena David OD [address] [facility] [place] [address] Assigned Surgical Provider 10/31/24 Fabiano Correa NP [address] [facility] [address] Assigned Heart and Vascular Provider 11/30/24 Walter Nowak MD [address] [place] [address] Physician Clinical Cardiac Electrophysiology 03/01/25 Liset Márquez MD [address] [address] dye operator 03/13/25 Lauren [place], [facility] [address] [place] [address] Pharmacist Pharmacist 04/15/25 documented as of this encounter
--- OUTSIDE RECORDS SUMMARY | 2025-04-26 23:55 | XMS_ITS | Encounter Summary ---
Author Organization [facility] Address [address] [place] [address] Care Team Providers Care Customer Project Manager Name Role Phone Diana Desir [facility] Unavailable Rain Galaviz PA-C Unavailable Tavia Wyatt MD Unavailable [phone] Erica Farrell APRN TOLL SETTLEMENT CLERK Unavailable Rich Barrett MD Unavailable [phone] Neil Kent MD Unavailable Diana Desir [facility] Unavailable Livan Sharif MD Unavailable Catherine Cm MD Unavailable + Valery Veronica PA-C Unavailable Brea Quinn HEMODIALYSIS CHARGE NURSE TOLL SETTLEMENT CLERK Unavailable [phone] Brea Quinn HEMODIALYSIS CHARGE NURSE TOLL SETTLEMENT CLERK Unavailable Jose Francisco Johnson MD Unavailable Alfonso Renteria MD Unavailable [phone] Esha Grimm PA-C Primary Care Provider Lomeli, Radha E HEMODIALYSIS CHARGE NURSE TOLL SETTLEMENT CLERK Unavailable [phone] Jelena David OD Unavailable [phone] Esha Grimm PA-C Unavailable [phone] Valery Veronica PA-C Unavailable Rey Tay [...] Team (Late st Contact Info) Description 03/19/2024 [facility] [address] [place] [address] [place] Social History Tobacco [...] Answer Date Recorded PHQ-2 Score 1 02/07/2024 [facility] of Occupat ional Health [...] exercise at this level? 30 min 03/10/2023 Buras Depression Scale Answer Date Recorded Buras Depression Score 5 01/14/2021 Last EPDS Self [...] CDT Legal Sex Female 4:13 AM CONTACT LENS MOLDER Gender Identity Female 03/02/2021 5:45 PM CDT Sexual Orientation Straight 02/28/2020 12 :51 AM CDT documented as of this encounter Plan of Treatment Upcoming Encounters Date Type Department Care Team (Late st Contact Info) Description 04/30/2025 10:30 AM CDT Office Visit [facility] [address], [address] [place] [phone] Liset Márquez MD [address] [address] 05/30/2025 2:45 PM CONTACT LENS MOLDER Office Visit [facility] [address] [phone] Fabiano Correa, MARINE DIESEL MECHANIC 6405 [place], [place] [address] Walter Nowak MD 7840 [place], [place] 425[address] 08/07/2025 8:15 AM CONTACT LENS MOLDER Office Visit [facility] [address] [phone] Lucien Grimes MD [address] [address] 08/21/2025 9:00 AM CONTACT LENS MOLDER Office Visit [facility] [address] [phone] Neil Kent MD [address] [place] [address] 10/09/2025 10:45 AM CDT Virtual Visit [facility] [address] 4th [place] [address] Meredith Carrera PA-C [address] [place] [address] 6435[address] documented as of this encounter Visit Diagnoses [...] as of this encounter Care Teams Customer Project Manager Relationship Specialty Start Date End Date Esha Grimm PA-C [address] [place] [phone] PCP - General Family Medicine 05/04/23 [facility] [address] [place], [place] [address] Pharmacist Pharmacist 04/17/21 Rain Galaviz PA-C [address] [place] [address] [address] [place] [address] Physician Pest Locator Dermatology 04/28/21 Tavia Wyatt MD [address] [place] [address] [address] [facility] [address] Dermatology 07/14/21 Erica Farrell APRN TOLL SETTLEMENT CLERK [address] [facility] [address] [place] [address] Nurse Practitioner Cardiovascular Disease 09/09/21 Rich Barrett MD [address] [place], [place] 3[address] Physician Ophthalmology 01/21/22 Neil Kent MD 500 [place] [address] Dermatology 02/24/22 [facility] 3033 [place] [address] Assigned [place] Pharmacist 04/07/22 Livan Sharif MD [address] [place] [address] Cardiovascular Disease 05/14/22 Catherine Cm MD [address] [facility] [address] [place] [address] Cardiovascular Disease 07/21/22 Valery Veronica, PA-C 909 [place] [address] Physician Pest Locator Dermatology 07/21/22 Brea Quinn APRN TOLL SETTLEMENT CLERK 500 [place] [address] Nurse Practitioner Dermatology 09/21/22 Brea Quinn APRN TOLL SETTLEMENT CLERK [address] [place] [address] Assigned Surgical Provider 10/09/22 05/01/24 [place] [address] [place] [address] Assigned Musculoskeletal Provider 10/09/22 05/01/24 Alfonso Renteria MD [address] [facility] 200 [place] [address] Assigned Neuroscience Provider 04/02/23 09/29/24 Radha Lomeli, HEMODIALYSIS CHARGE NURSE TOLL SETTLEMENT CLERK [address] [facility] [address] [place], [place] [address]267[address] Assigned Heart and Vascular Provider 05/28/23 11/29/24 J[place]ena David OD [address] [facility] [place] [address] Ophthalmology 06/15/23 Esha rGimm PA-C [address] [place] [phone] Assigned PCP 07/16/23 Valery Veronica PA-C [address] [place] [address] Physician Pest Locator Dermatology 09/19/23 Rey Tay MD [address] [place] [address] Gastroenterology 09/20/23 Rocky Zepeda DO [address] [place] [address] 410765 Physician Gastroenterology 09/20/23 Philip Dumont MD [address] [place] [address] Physician Ophthalmology 09/22/23 Meredith Carrera PA-C [address] [place] [address] Assigned Gastroenterology Provider 11/01/23 Neil Kent MD [address] [place] [address] Dermatology 11/02/23 [place] [address] [place] [address] Neurological Surgery 12/26/23 Audrey Waite PA-C [address] [place] [address] Physician Pest Locator Dermatology 02/28/24 Valery Veronica PA-C [address]47 [address] [place] [address] Physician Pest Locator Dermatology 04/10/24 Herminia Hatch MD [address] [place] [address] [phone] Assigned Rheumatology Provider 07/02/24 [place] [address] [place] [address] [place] [address] Ophthalmology 08/30/24 [place] [address] [place] [address] Assigned Neuroscience Provider 09/30/24 Maru Man PA-C [address] [place] [address] Physician Pest Locator Dermatology 10/03/24 Maru Man PA-C [address] [place] [address] Physician Pest Locator Dermatology 10/22/24 Jelena David OD [address] [facility] [place] [address] Assigned Surgical Provider 10/31/24 Fabiano Correa NP [address] [place] [address] Assigned Heart and Vascular Provider 11/30/24 Walter Nowak MD [address] [address] Physician Clinical Cardiac Electrophysiology 03/01/25 Liset Márquez MD [address] [facility] 300 [place] [address] email designer 03/13/25 Lauren Coronado, [facility] 909 [place], [place] 285375 Pharmacist Pharmacist 04/15/25 documented as of this encounter
--- OUTSIDE RECORDS SUMMARY | 2025-04-26 23:55 | XMS_ITS | Encounter Summary ---
Author Organization [place] Address [address] [place] [address] Care Team Providers Care Digital Marketing Consultant Name Role Phone Lita Oseguera Unavailable Unavailable Marija Edgar APRN TIMBER MANAGEMENT PROFESSOR Primary Care Provider + Marija Edgar APRN TIMBER MANAGEMENT PROFESSOR Unavailable Mynor Broussard MD Unavailable [phone] Keisha Dotson MD Unavailable Galo Burrell MD Unavailable Unavailable Diana Desir [facility] Unavailable [phone] Rain Galaviz PA-C Unavailable Summer Lara MD Unavailable [phone] Tavia Wyatt MD Unavailable Johnny Murillo MD Unavailable Erica Farrell APRN TIMBER MANAGEMENT PROFESSOR Unavailable Teresita Bean [facility] Unavailable [phone] Tavia Wyatt MD Unavailable Diana Desir [facility] Unavailable [phone] Rich Barrett MD Unavailable [phone] Neil [place] MD Unavailable Roney Story DPM Unavailable [phone] Erica Farrell SECURITY AGENT TIMBER MANAGEMENT PROFESSOR Unavailable Diana Desir [facility] Unavailable [phone] Jelena David OD Unavailable Galo Burrell MD Unavailable Unavailable Livan Sharif MD Unavailable + Livan Sharif MD Unavailable + Catherine Cm MD Unavailable + Valery Veronica PA-C Unavailable [phone] Catherine Cm MD Unavailable + Johnny Murillo MD Unavailable [phone] Brea Quinn SECURITY AGENT TIMBER MANAGEMENT PROFESSOR Unavailable [phone] Brea Quinn SECURITY AGENT TIMBER MANAGEMENT PROFESSOR Unavailable [phone] Jose Francisco Johnson MD Unavailable Livan Sharif MD Unavailable + IsCatherine hobbs MD Unavailable + Sydnie Martinez RN Unavailable Unavailable Alfonso Renteria MD Unavailable Esha Grimm-C Primary Care Provider Cheng Todd PA-C Unavailable Radha Lomeli SECURITY AGENT TIMBER MANAGEMENT PROFESSOR Unavailable [phone] Jelena David OD Unavailable Pao Joseph RN Unavailable Unavailable Esha Grimm-C Unavailable Valery Veronica PA-C Unavailable [phone] Rey Tay MD Unavailable Rocky Zepeda DO Unavailable Philip Dumont MD Unavailable Meredith Carrera PA-C Unavailable [phone] Neil [place] MD Unavailable Juan Pablo Emmanuel MD Unavailable Audrey Waite PA-C Unavailable Valery Veronica PA-C Unavailable [phone] Herminia Hatch MD Unavailable Jelena David OD Unavailable Juan Pablo Emmanuel MD Unavailable [phone] Maru Man PA-C Unavailable [phone] Maru Man PA-C Unavailable [phone] Jelena David OD Unavailable Fabiano oCrrea SHAPE CARVER Unavailable Walter Nowak MD Unavailable Liset Márquez MD Unavailable Lauren Coronado [facility] Unavailable [phone] Encounter Details Date Type Department Care Team (Late st Contact Info) Description 09/02/2021 MyC Medical Advice [address] [address] Diana Desir, [facility] [address] [place] [address] Social History Tobacco Use Types [...] a group home (including now)? No 08/11/2020 [place] Depression Scale Answer Date Recorded [place] Depression Score 5 01/14/2021 Last EPDS Self Harm Result Not on file 01/14 Education Answer Date Recorded What is the highest level of school you have completed or the highest degree you have received? 12th grade 08/07/2020 Comments No Sex and Gender Information Value Date Recorded Sex Assigned at Female 03/02/2021 5:45 PM CDT Legal Sex Female 4:13 AM BRANNER MACHINE TENDER Gender Identity Female 03/02/2021 5:45 PM CDT Sexual Orientation Straight 02/28/2020 12 :51 AM CDT COVID-19 Exposure Response Date Recorded In the last month, have you been in contact with someone who was confirmed or suspected to have Coronavirus / COVID-19? No / Unsure 09/02/2021 12:26 PM BRANNER MACHINE TENDER documented as of this encounter Plan of Treatment Upcoming Encounters Date Type Department Care Team (Late st Contact Info) Description 04/30/2025 10:30 AM CDT Office Visit [facility] [address], [address] [place] [phone] Liset Márquez MD [address] [place] [address] 05/30/2025 2:45 PM BRANNER MACHINE TENDER Office Visit [facility] Heart [address] [phone] Fabiano Correa NP 6405 [place], [place] 597[address] Walter Nowak MD 6404 [place], [place] 733935 08/07/2025 8:15 AM BRANNER MACHINE TENDER Office Visit [facility] Heart [place] [id number] [phone] Lucien Grimes MD [address] [address] 08/21/2025 9:00 AM BRANNER MACHINE TENDER Office Visit [facility] [address] [phone] Neil [place] MD [address] [place] [address] 10/09/2025 10:45 AM CDT Virtual Visit [facility] Gastroenterology [facility] [address] [facility] [address] 4th [place] [phone] Meredith Carrera PA-C 909 [place] [address] documented as of this encounter Visit Diagnoses Not on filedocumented in this encounter Additional Health Concerns Infection Onset Date Last Indicated Resolved Time Rule Out COVID-19 12/18/2021 12/18/2021 12/19/2021 11:34 AM CDT Rule Out COVID-19 02/24/2022 02/24/2022 02/25/2022 1:08 PM CDT Rule Out COVID-19 04/26/2022 04/26/2022 04/26/2022 6:47 AM CDT Rule Out COVID-19 05/17/2022 05/17/2022 05/17/2022 10:20 PM BRANNER MACHINE TENDER Rule Out COVID-19 06/09/2022 06/09/2022 06/09/2022 9:35 AM BRANNER MACHINE TENDER COVID-19 06/09/2022 06/09/2022 06/30/2022 11:4 1 PM BRANNER MACHINE TENDER Rule Out COVID-19 11/10/2022 11/10/2022 [...] of this encounter Care Teams Digital Marketing Consultant Relationship Specialty Start Date End Date Marija Edgar APRN TIMBER MANAGEMENT PROFESSOR PCP - General Nurse Practitioner 04/30/20 04/14/23 Esha Grimm PA-C [address] [place] [phone] PCP - General Family Medicine 05/04/23 Lita Oseguera Personal Advocate & Liaison (PAL) 02/28/20 03/27/23 Marija Edgar APRN TIMBER MANAGEMENT PROFESSOR Assigned PCP 06/08/20 04/29/23 Myonr Broussard MD [address] [place], [place] 162805 Assigned Surgical Provider 06/01/20 11/28/21 Keisha Dotson MD [address] [place] [address] 342375 Assigned Neuroscience Provider 06/04/20 04/01/23 Galo Burrell MD Assigned Heart and Vascular Provider 10/05/20 04/02/22 [facility] [address] [place] [address] Pharmacist Pharmacist 04/17/21 Rain Galaviz PA-C [address] [place] [address] DR [facility] [place] [address] Physician Utility Worker Driver Dermatology 04/28/21 Summer Lara MD [address] [place] [address] Assigned OBGYN Provider 05/31/21 Tavia Wyatt MD [address] [place] [address] Dermatology 07/14/21 Johnny Murillo MD [address] [place] [address] Assigned Musculoskeletal Provider 08/30/21 03/17/22 Erica Farrell APRN TIMBER MANAGEMENT PROFESSOR [address] [facility] [address] [place], [place] 072575 Nurse Practitioner Cardiovascular Disease 09/09/21 Teresita eBan [facility] [address] [place], [place] [phone] Pharmacist Pharmacist 09/24/21 09/29/21 Tavia Wyatt MD [address] [place], [place] 594890 Assigned Surgical Provider 11/29/21 05/07/22 [facility] [address] [place] [address] Assigned MTM Pharmacist 01/02/22 Rich Barrett MD [address] [place] [address] Physician Ophthalmology 01/21/22 Neil [place] MD [address] [place] [address] Dermatology 02/24/22 Roney Story DPM [address] [facility] [address] [place] [address] Assigned Musculoskeletal Provider 03/20/22 08/13/22 Erica Farrell APRN TIMBER MANAGEMENT PROFESSOR [address] [place] [address] Assigned Heart and Vascular Provider 04/03/22 04/16/22 Diana Desir, [facility] [address] [place] [address] Assigned MTM Pharmacist 04/07/22 Jelena David OD [address] [facility] [address] Assigned Surgical Provider 05/08/22 10/08/22 Galo Burrell MD Assigned Heart and Vascular Provider 04/17/22 06/11/22 Livan Sharif MD [address] [place] [address] Cardiovascular Disease 05/14/22 Livan Sharif MD [address] [place] [address] [place] [address] Assigned Heart and Vascular Provider 06/12/22 07/23/22 Catherine Cm MD [address] [place] [address] Cardiovascular Disease 07/21/22 Valery Veronica, PAUcheC [address] [place] [address] Physician Utility Worker Driver Dermatology 07/21/22 Catherine Cm MD [address] [place] [phone] [place] [address] Assigned Heart and Vascular Provider 07/24/22 11/05/22 Johnny Murillo MD [address] [place] [address] Assigned Musculoskeletal Provider 08/14/22 10/08/22 Brea Quinn APRN TIMBER MANAGEMENT PROFESSOR [address] [place] [address] Nurse Practitioner Dermatology 09/21/22 Brea Quinn APRN TIMBER MANAGEMENT PROFESSOR [address] [place] [address] Assigned Surgical Provider 10/09/22 05/01/24 [place] [address] [address] Assigned Musculoskeletal Provider 10/09/22 05/01/24 Livan Sharif MD [address] [place] [phone] [place] [address] Assigned Heart and Vascular Provider 11/06/22 11/12/22 Catherine Cm MD [address] [facility] [address] [place] [address] Assigned Heart and Vascular Provider 11/13/22 05/27/23 Sydnie Martinez RN Personal Advocate & Liaison (PAL) Family Medicine 03/28/23 07/31/23 Alfonso Renteria MD [address] [facility] 200 [place] [address] Assigned Neuroscience Provider 04/02/23 09/29/24 Cheng Todd PA-C [address] [place] [address] [id number] Assigned PCP 04/30/23 07/15/23 Radha Lomeli APRN TIMBER MANAGEMENT PROFESSOR [address] [place] [address] Assigned Heart and Vascular Provider 05/28/23 11/29/24 Jelena David OD [address] [facility] [address] Ophthalmology 06/15/23 Pao Joseph RN Personal Advocate & Liaison (PAL) Nurse 08/01/23 11/07/23 Esha Grimm PA-C [address] [place] [phone] Assigned PCP 07/16/23 Valery Veronica PA-C [address] [place], [place] [address] Physician Utility Worker Driver Dermatology 09/19/23 Rey Tay MD [address] [place] [address] MD Gastroenterology 09/20/23 Rocky Zepeda DO [address] [place] [address] Physician Gastroenterology 09/20/23 Philip Dumont MD [address] [place] [address] Physician Ophthalmology 09/22/23 Meredith Carrera PA-C [address] [place] [address] Assigned Gastroenterology Provider 11/01/23 Neil [place] MD [address] [place] [address] Dermatology 11/02/23 [place] [address] [address] Neurological Surgery 12/26/23 Audrey Waite PA-C [address] [place] [address] Physician Utility Worker Driver Dermatology 02/28/24 Valery Veronica PA-C [id number] [address] [place] [address] Physician Utility Worker Driver Dermatology 04/10/24 Herminia Hatch MD [facility]5 [place], [place] [phone] Assigned Rheumatology Provider 07/02/24 Jelena David OD [address] [facility] [place] [address] Ophthalmology 08/30/24 [place] [address] [place] [address] Assigned Neuroscience Provider 09/30/24 Maru Man PA-C [address] [place] [address] 015030 Physician Utility Worker Driver Dermatology 10/03/24 Maru Man PA-C [address] [place] [address] 089580 Physician Utility Worker Driver Dermatology 10/22/24 Jelena David, SONJA [address] [facility] [place] [address] Assigned Surgical Provider 10/31/24 Fabiano Correa NP [address] [place] [address] Assigned Heart and Vascular Provider 11/30/24 Walter Nowak MD [address] [place] [address] Physician Clinical Cardiac Electrophysiology 03/01/25 Liset Márquez MD [address] [facility] 300 [place] [address] post framer 03/13/25 Lauren Coronado [facility] [address] [place] [address] Pharmacist Pharmacist 04/15/25 documented as of this encounter
--- OUTSIDE RECORDS SUMMARY | 2025-04-26 23:55 | XMS_ITS | Encounter Summary ---
Author Organization [place] Address [address] [place] [address] Care Team Providers Care Machine Pie Maker Name Role Phone Marija Edgar ARLENE MACHINE TURNER Unavailable Diana Desir [facility] Unavailable Rain Galaviz PA-C Unavailable Tavia Wyatt MD Unavailable Erica Farrell APRN MACHINE TURNER Unavailable Rich Barrett MD Unavailable [phone] Neil [place] MD Unavailable Diana Desir [facility] Unavailable [phone] Livan Sharif MD Unavailable Catherine Cm MD Unavailable + Valery Veronica PA-C Unavailable [phone] Brea Quinn APRN MACHINE TURNER Unavailable Brea Quinn APRN MACHINE TURNER Unavailable Jose Francisco Johnson MD Unavailable Catherine Cm MD Unavailable + Sydnie Martinez RN Unavailable Unavailable Alfonso Renteria MD Unavailable [phone] Esha Grimm PA-C Primary Care Provider Cheng Todd PA-C Unavailable Radha Lomeli APRN MACHINE TURNER Unavailable Jelena David OD Unavailable Pao Joseph RN Unavailable Unavailable Esha Grimm PA-C Unavailable [phone] Valery Veronica PA-C Unavailable Rey Tay [...] Unavailable Lauren Coronado [facility] Unavailable [phone] Encounter Details Date Type Department Care Team (Late st Contact Info) Description 04/18/2023 MyC Medical Advice [facility] [address] [place] [address] Mary Calvo Social History Tobacco [...] week 03/10/2023 How often do you attend caro center or hindu services? 1 to 4 times [...] Answer Date Recorded PHQ-2 Score 0 03/10/2023 [facility] [...] exercise at this level? 30 min 03/10/2023 [place] Depression Scale Answer Date Recorded [place] Depression Score 5 01/14/2021 Last EPDS Self [...] CDT Legal Sex Female 4:13 AM OIL WELL FISHING TOOL OPERATOR Gender Identity Female 03/02/2021 5:45 [...] Description 04/30/2025 10:30 AM CDT Office Visit [facility] [address], [address] [place] [phone] Liset Márquez MD [address] [facility] 300 [place] [address] 05/30/2025 2:45 PM OIL WELL FISHING TOOL OPERATOR Office Visit [address] [phone] Fabiano Correa, POWER SYSTEMS ENGINEER 6405 [place], [place] 551145 Walter Nowak MD 5733 [place], [place] 867315 08/07/2025 8:15 AM OIL WELL FISHING TOOL OPERATOR Office Visit [facility] [address] [phone] Lucien Grimes MD [address] [phone] 08/21/2025 9:00 AM OIL WELL FISHING TOOL OPERATOR Office Visit [address] [phone] Neil [place] MD [address] [place] [address] 621105 10/09/2025 10:45 AM CDT Virtual Visit [facility] [address] 4th [place] [phone] Meredith Carrera PA-C [address] [place] [address] documented as of this encounter Visit Diagnoses [...] as of this encounter Care Teams Machine Pie Maker Relationship Specialty Start Date End Date Esha Grimm PA-C [address] [place] [phone] PCP - General Family Medicine 05/04/23 Marija Edgar APRN CNP Assigned PCP 06/08/20 04/29/23 Diana Desir, [facility] [address] [place] [address] Pharmacist Pharmacist 04/17/21 Rain Galaviz PA-C [address] [place] [address] [address] [place] [address] Physician Seafood Farmer Dermatology 04/28/21 Tavia Wyatt MD [address] [place] [address] [address] [place] [address] Dermatology 07/14/21 Erica Farrell APRN MACHINE TURNER [address] [place] [address] Nurse Practitioner Cardiovascular Disease 09/09/21 Rich Barrett MD [address] [place] 3578[address] Physician Ophthalmology 01/21/22 Neil [place] MD 500 [place], [place] 590135 Dermatology 02/24/22 Diana Desir, [facility] [address] [place] [address] Assigned MTM Pharmacist 04/07/22 Livan Sharif MD [address] [place] [address] [place] [address] Cardiovascular Disease 05/14/22 Catherine Cm MD [address] [facility] [address] [place] [address] Cardiovascular Disease 07/21/22 Valery Veronica PA-C 909 [place], [place] 106305 Physician Seafood Farmer Dermatology 07/21/22 Brea Quinn APRN MACHINE TURNER 500 [place], [place] 037[address] Nurse Practitioner Dermatology 09/21/22 Brea Quinn APRN MACHINE TURNER 6401 [place] [address] Assigned Surgical Provider 10/09/22 05/01/24 [place] [address] [facility] [address] [place], [place] 352307 Assigned Musculoskeletal Provider 10/09/22 05/01/24 Catherine Cm MD [address] [facility] [address] [facility] [address] [place] [address] Assigned Heart and Vascular Provider 11/13/22 05/27/23 Sydnie Martinez RN Personal Advocate & Liaison (PAL) Family Medicine 03/28/23 07/31/23 Alfonso Renteria MD [address] [facility] 200 [place] [address] Assigned Neuroscience Provider 04/02/23 09/29/24 Cheng Todd PA-C [address] [place] [address] Assigned PCP 04/30/23 07/15/23 Radha Lomeli APRN MACHINE TURNER [address] [facility] [address] [place] [address] Assigned Heart and Vascular Provider 05/28/23 11/29/24 Jelena David OD [address] [place] [address] MD Ophthalmology 06/15/23 Pao Joseph, VJ Personal Advocate & Liaison (PAL) Nurse 08/01/23 11/07/23 Esha Grimm PA-C [address] [place] [phone] Assigned PCP 07/16/23 Valery Veronica PA-C [address] [place] [address] 028425 Physician Seafood Farmer Dermatology 09/19/23 Rey Tay MD [address] [place] [address] 245585 Gastroenterology 09/20/23 Rocky Zepeda DO [address] [place] [address] Physician Gastroenterology 09/20/23 Philip Dumont MD [address] [place] [address] Physician Ophthalmology 09/22/23 Meredith Carrera PA-C 909 [place] [address] Assigned Gastroenterology Provider 11/01/23 Neil Kent MD [address] [place] [address] Dermatology 11/02/23 [place] [address] [place] [address] Neurological Surgery 12/26/23 Audrey Waite PA-C [address] [place] [address] Physician Seafood Farmer Dermatology 02/28/24 Valery Veronica PA-C [id number] [address] [place] [address] Physician Seafood Farmer Dermatology 04/10/24 Herminia Hatch MD [address] [place] [address] [id number] Assigned Rheumatology Provider 07/02/24 Jelena David OD [address] [place] [address] [place] [address] Ophthalmology 08/30/24 [place] [address] [facility] [place] [address] Assigned Neuroscience Provider 09/30/24 Maru Man PA-C [address] [place] [address] Physician Seafood Farmer Dermatology 10/03/24 Maru Man PA-C [address] [place] [address] Physician Seafood Farmer Dermatology 10/22/24 Jelena David OD [address] [place] [address] Assigned Surgical Provider 10/31/24 Fabiano Correa NP [address] [place] 990345 Assigned Heart and Vascular Provider 11/30/24 Walter Nowak MD [address] [place] 610[address] Physician Clinical Cardiac Electrophysiology 03/01/25 Liset Márquez MD [address] [address] director of property management 03/13/25 Lauren Coronado, [facility] 909 [place], [place] [phone] Pharmacist Pharmacist 04/15/25 documented as of this encounter
--- OUTSIDE RECORDS SUMMARY | 2025-04-26 23:55 | XMS_ITS | Encounter Summary ---
Author Organization [facility] Address [address] [place] [address] Care Team Providers Care Processes Chemical Design Engineer Name Role Phone Lita sOeguera Unavailable Unavailable Marija Edgar APRN CLIPPING MARKER Primary Care Provider + Marija Edgar APRN CLIPPING MARKER Unavailable Mynor Broussard MD Unavailable [phone] Keisha Dotson MD Unavailable Galo Burrell MD Unavailable Unavailable Diana Desir [facility] Unavailable Rain Galaviz PA-C Unavailable Summer Lara MD Unavailable [phone] Tavia Wyatt MD Unavailable Johnny Murillo MD Unavailable Erica Farrell APRN CLIPPING MARKER Unavailable Teresita Bean [facility] Unavailable Tavia Wyatt MD Unavailable Diana Desir [facility] Unavailable [phone] Rich Barrett MD Unavailable [phone] Neil Kent MD Unavailable Roney Story DPM Unavailable [phone] Erica Farrell CORE FINISHER CLIPPING MARKER Unavailable Diana Desir [facility] Unavailable [phone] Jelena David OD Unavailable [phone] Glao Burrell MD Unavailable Unavailable Livan Sharif MD Unavailable + Livan Sharif MD Unavailable + Catherine Cm MD Unavailable + Valery Veronica PA-C Unavailable [phone] Catherine Cm MD Unavailable + Johnny Murillo MD Unavailable [phone] Brea Quinn CORE FINISHER CLIPPING MARKER Unavailable [phone] Brea Quinn CORE FINISHER CLIPPING MARKER Unavailable [phone] Jose Francisco Johnson MD Unavailable Livan Sharif MD Unavailable + IsCatherine hobbs MD Unavailable + Sydnie Martinez RN Unavailable Unavailable Alfonso Renteria MD Unavailable Esha Grimm-C Primary Care Provider Cheng Todd PA-C Unavailable Radha Lomeli CORE FINISHER CLIPPING MARKER Unavailable [phone] Jelena David OD Unavailable [phone] Pao Joseph RN Unavailable Unavailable Esha Grimm-C Unavailable Valery Veronica PA-C Unavailable [phone] Rey Tay MD Unavailable Rocky Zepeda DO Unavailable Philip Dumont MD Unavailable [phone] Meredith Carrera PA-C Unavailable [phone] Neil Kent MD Unavailable Juan Pablo Emmanuel MD Unavailable Audrey Waite PA-C Unavailable Valery Veronica PA-C Unavailable Herminia Hatch MD Unavailable Jelena David OD Unavailable [phone] Juan Pablo Emmanuel MD Unavailable Maru Man PA-C Unavailable Maru Man PA-C Unavailable Jelena David OD Unavailable Fabiano Correa NP Unavailable Walter Nowak MD Unavailable Liset Márquez MD Unavailable Lauren Coronado [facility] Unavailable Encounter Details Date Type Department Care Team (Late st Contact Info) Description 09/24/2021 MyC Medical Advice [facility] [place] [address] [facility] [address] [place] [address] Teresita Bean, [facility] [address] [facility] [place] [address] Social History Tobacco [...] How often do you attend adventism or orthodoxy serv ices? Never 09/22/2021 Do [...] Answer Date Recorded PHQ-2 Score 2 09/22/2021 [facility] - [...] a group home (including now)? No 09/22/2021 [place] Depression [...] CDT Legal Sex Female 4:13 AM COLOR CONTROL OPERATOR Gender Identity Female 03/02/2021 5:45 [...] CDT Office Visit [facility] [address], [address] [place] [address] Liset Márquez MD [address] [facility] 300 [place], [place] [address] 05/30/2025 2:45 PM COLOR CONTROL OPERATOR Office Visit [facility] 6[address] [facility] [address] [place] [phone] Fabiano Correa, BRYCE 6405 [place], [place] 812[address] Walter Nowak MD 2571 [place], [place] [address] 08/07/2025 8:15 AM COLOR CONTROL OPERATOR Office Visit [facility] [address] [phone] Lucien Grimes MD [address] [address] 08/21/2025 9:00 AM COLOR CONTROL OPERATOR Office Visit [facility] [address] [phone] Neil Kent MD [address] [place] [address] 10/09/2025 10:45 AM CDT Virtual Visit [facility] Gastroenterology [address] 4th [place] [phone] Meredith Carrera PA-C [address] [place] [address] documented as of this encounter Visit Diagnoses Not on filedocumented in this encounter Additional Health Concerns Infection Onset Date Last Indicated Resolved Time Rule Out COVID-19 12/18/2021 12/18/2021 12/19/2021 11:34 AM CDT Rule Out COVID-19 02/24/2022 02/24/2022 02/25/2022 1:08 PM CDT Rule Out COVID-19 04/26/2022 04/26/2022 04/26/2022 6:47 AM CDT Rule Out COVID-19 05/17/2022 05/17/2022 05/17/2022 10:20 PM COLOR CONTROL OPERATOR Rule Out COVID-19 06/09/2022 06/09/2022 06/09/2022 9:35 AM COLOR CONTROL OPERATOR COVID-19 06/09/2022 06/09/2022 06/30/2022 11:4 1 PM COLOR CONTROL OPERATOR Rule Out COVID-19 11/10/2022 11/10/2022 11/11/2022 [...] documented as of this encounter Care Teams Processes Chemical Design Engineer Relationship Specialty Start Date End Date Marija Edgar APRN CLIPPING MARKER PCP - General Nurse Practitioner 04/30/20 04/14/23 Esha Grimm PA-C [address] [place] [phone] PCP - General Family Medicine 05/04/23 Lita Oseguera Personal Advocate & Liaison (PAL) 02/28/20 03/27/23 Marija Edgar APRN CLIPPING MARKER Assigned PCP 06/08/20 04/29/23 Mynor Broussard MD 909 [place], [place] 0212[address] Assigned Surgical Provider 06/01/20 11/28/21 Keisha Dotson MD 909 [place], [place] 030525 Assigned Neuroscience Provider 06/04/20 04/01/23 Galo Burrell MD Assigned Heart and Vascular Provider 10/05/20 04/02/22 [facility] 3033 [place] [address] Pharmacist Pharmacist 04/17/21 Rain Galaviz PA-C [address] [place] [address] [place] [address] Physician Reconstructive Surgeon Dermatology 04/28/21 Summer Lara MD [address] [place] [address] [place] [address] Assigned OBGYN Provider 05/31/21 2 Tavia Wyatt MD [address] [place] [address] Dermatology 07/14/21 Johnny Murillo MD [address] [place] [address] Assigned Musculoskeletal Provider 08/30/21 03/17/22 Erica aFrrell APRN CLIPPING MARKER 6405 [facility] [address] [place] [address] Nurse Practitioner Cardiovascular Disease 09/09/21 [facility] [address] [place] [place], [place] [phone] Pharmacist Pharmacist 09/24/21 09/29/21 Tavia Wyatt MD [address] [place] [address] Assigned Surgical Provider 11/29/21 05/07/22 [facility] 3033 [place] [address] Assigned MTM Pharmacist 01/02/22 [place] [address] [place] [address] Physician Ophthalmology 01/21/22 Neil Kent MD 500 [place] [address] Dermatology 02/24/22 Roney Story DPM [address] [facility] [address] [place] [address] Assigned Musculoskeletal Provider 03/20/22 08/13/22 Erica Farrell APRN CLIPPING MARKER 1700 [place] [address] Assigned Heart and Vascular Provider 04/03/22 04/16/22 Diana Desir, [facility] 3033 [place] [address] Assigned MTM Pharmacist 04/07/22 Jelena David OD [address] [facility] [place] [address] Assigned Surgical Provider 05/08/22 10/08/22 Galo Burrell MD Assigned Heart and Vascular Provider 04/17/22 06/11/22 Livan Sharif MD [address] [place] [address] Cardiovascular Disease 05/14/22 Livan Sharif MD [address] [address] [place] [address] Assigned Heart and Vascular Provider 06/12/22 07/23/22 Catherine Cm MD [address] [address] [place] [address] Cardiovascular Disease 07/21/22 Valery Veronica PAUcheC 909 [place] [address] Physician Reconstructive Surgeon Dermatology 07/21/22 Catherine Cm MD [address] [place] [address] Assigned Heart and Vascular Provider 07/24/22 11/05/22 Johnny Murillo MD [address] [place] [address] Assigned Musculoskeletal Provider 08/14/22 10/08/22 Brea Quinn APRN CLIPPING MARKER [address] [place] [address] Nurse Practitioner Dermatology 09/21/22 Brea Quinn APRN CLIPPING MARKER [address] [place] [address] Assigned Surgical Provider 10/09/22 05/01/24 [place] [address] [address] Assigned Musculoskeletal Provider 10/09/22 05/01/24 Livan Sharif MD [address] [place] [address] [place] [address] Assigned Heart and Vascular Provider 11/06/22 11/12/22 Catherine Cm MD [address] [address] [place] [address] Assigned Heart and Vascular Provider 11/13/22 05/27/23 Sydnie Martinez, RN Personal Advocate & Liaison (PAL) Family Medicine 03/28/23 07/31/23 Alfonso Renteria MD 5775 [facility] 200 [place] [address] Assigned Neuroscience Provider 04/02/23 09/29/24 Cheng Todd PA-C [address] [place] [address] [phone] Assigned PCP 04/30/23 07/15/23 Radha Lomeli APRN CLIPPING MARKER [address] [place] [address] Assigned Heart and Vascular Provider 05/28/23 11/29/24 Jelena David OD [address] [facility] [place] [address] Ophthalmology 06/15/23 aPo Joseph RN Personal Advocate & Liaison (PAL) Nurse 08/01/23 11/07/23 Esha Grimm PA-C [address] [place] [phone] Assigned PCP 07/16/23 Valery Veronica PA-C [address] [place] [address] Physician Reconstructive Surgeon Dermatology 09/19/23 Rey Tay MD [address] [place] [address] Gastroenterology 09/20/23 Rcoky Zepeda DO [address] [place] [address] Physician Gastroenterology 09/20/23 Philip Dumont MD [address] [place] [address] Physician Ophthalmology 09/22/23 Meredith Carrera PA-C [address] [place] [address] Assigned Gastroenterology Provider 11/01/23 Neil Kent MD [address] [address] MD Dermatology 11/02/23 [place] [address] [address] Neurological Surgery 12/26/23 Audrey Waite PA-C [address] [place] [address] Physician Reconstructive Surgeon Dermatology 02/28/24 Valery Veronica PA-C [id number] [address] [place] [address] Physician Reconstructive Surgeon Dermatology 04/10/24 Herminia Hatch MD [address] [place] [address] Assigned Rheumatology Provider 07/02/24 Jelena David, OD [address] [facility] [place] [address] Ophthalmology 08/30/24 [place] [address] [address] [facility] 300 [place] [address] Assigned Neuroscience Provider 09/30/24 Maru Man PA-C [address] [place], [place] [address] Physician Reconstructive Surgeon Dermatology 10/03/24 Maru Man PA-C [address] [place], [place] [address] Physician Reconstructive Surgeon Dermatology 10/22/24 Jelena David, [place] [address] [facility] [place] [address] Assigned Surgical Provider 10/31/24 Fabiano Correa, PAD TUFTER [address] [place] [address] Assigned Heart and Vascular Provider 11/30/24 Walter Nowak MD 6405 [place] [address] Physician Clinical Cardiac Electrophysiology 03/01/25 Liset Márquez MD [address] [facility] 300 [place] [address] tactical debriefer 03/13/25 Lauren Coronado, [facility] [address] [place] [address] Pharmacist Pharmacist 04/15/25 documented as of this encounter
--- OUTSIDE RECORDS SUMMARY | 2025-04-26 23:56 | XMS_ITS | Encounter Summary ---
Author Organization [facility] Address [address] [place] [address] Care Team Providers Care Dairy Clerk Name Role Phone Diana Desir [facility] Unavailable Rain Galaviz PA-C Unavailable Tavia Wyatt MD Unavailable [phone] Erica Farrell APRN BUSINESS PROJECT MANAGER Unavailable Rich Barrett MD Unavailable [phone] Neil Kent MD Unavailable Diana Desir [facility] Unavailable Livan Sharif MD Unavailable Catherine Cm MD Unavailable + Valery Veronica PA-C Unavailable Brea Quinn ALLEY TENDER BUSINESS PROJECT MANAGER Unavailable Brea Quinn ALLEY TENDER BUSINESS PROJECT MANAGER Unavailable Jose Francisco Johnson MD Unavailable Alfonso Renteria MD Unavailable [phone] Esha Grimm PA-C Primary Care Provider Lomeli, Radha E ALLEY TENDER BUSINESS PROJECT MANAGER Unavailable Jelena David OD Unavailable Esha Grimm PA-C Unavailable [phone] JeremíasValery damon PA-C Unavailable Rey Tay [...] Unavailable Liset Márquez MD Unavailable Lauren Coronado [facility] Unavailable [phone] Encounter Details Date Type Department Care Team (Late st Contact Info) Description 02/01/2024 MyC Medical Advice [facility] Neurology [address], [address] [place] [address] Macy Pinedo, RN Social History [...] exercise at this level? 30 min 03/10/2023 [place] Depression Scale Answer Date Recorded [place] Depression Score 5 01/14/2021 Last EPDS Self [...] CDT Legal Sex Female 4:13 AM SENIOR MARKETING ANALYST Gender Identity Female 03/02/2021 5:45 PM CDT Sexual Orientation Straight 02/28/2020 12 :51 AM CDT documented as of this encounter Plan of Treatment Upcoming Encounters Date Type Department Care Team (Late st Contact Info) Description 04/30/2025 10:30 AM CDT Office Visit [facility] [address], [address] [place] [address] Liset Márquez MD [address] [address] 05/30/2025 2:45 PM SENIOR MARKETING ANALYST Office Visit [facility] [address] [phone] Fabiano Correa, FOOD ORDER EXPEDITER 6405 [place], [place] [address] Walter Nowak MD 4066 [place], [place] 3388[address] 08/07/2025 8:15 AM SENIOR MARKETING ANALYST Office Visit [facility] [place] [id number] [address] [phone] Lucien Grimes MD [address] [address] 08/21/2025 9:00 AM SENIOR MARKETING ANALYST Office Visit [facility] [address] [phone] Neil Kent MD [address] [place] [address] 694[address] 10/09/2025 10:45 AM CDT Virtual Visit [facility] [address] 4th [place] [address] Meredith Carrera PA-C [address] [place] [address] documented as of this encounter Visit Diagnoses Not on filedocumented in this encounter Additional Health Concerns Infection Onset Date Last Indicated Resolved Time Rule Out COVID-19 04/09/202404/0904/09/2024 04/10/2024 6:48 PM CDT Rule Out COVID-19 10/04/2024 10/04/2024 10/05/2024 9:42 AM CDT Rule Out COVID-19 11/20/2024 11/20/2024 11/21/2024 11:23 AM CDT Rule Out COVID-19 11/21/2024 11/21/2024 11/22/2024 12:10 AM CDT Influenza 11/21/2024 11/21/2024 11/28/2024 7:42 PM CDT Assessment Noted Time PHQ-9 Depression Total Score: 4 06/20/20 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 MARKETING ANALYST documented as of this encounter Care Teams Dairy Clerk Relationship Specialty Start Date End Date Esha Grimm PA-C [address] [place] [address] PCP - General Family Medicine 05/04/23 Diana Desir [facility] 3033 [place] [address] Pharmacist Pharmacist 04/17/21 Rain Galaviz PA-C [address] [place] [address] [address] [facility] [place] [address] Physician Mortician Investigator Dermatology 04/28/21 Tavia Wyatt MD [address] [place] [address] [address] [place] [facility] [place] [address] Dermatology 07/14/21 Erica Farrell APRN BUSINESS PROJECT MANAGER [address] [facility] [address] [place] [address] Nurse Practitioner Cardiovascular Disease 09/09/21 Rich Barrett MD [address] [place], [place] 77[address] Physician Ophthalmology 01/21/22 Neil Kent MD 500 [place] [address] Dermatology 02/24/22 [facility] 3033 [place] [address] Assigned [facility] Pharmacist 04/07/22 Livan Sharif MD [address] [place] [address] Cardiovascular Disease 05/14/22 Catherine Cm MD [address] [place] [address] Cardiovascular Disease 07/21/22 Valery Veronica, PA-C 909 [place] [address] Physician Mortician Investigator Dermatology 07/21/22 Brea Quinn APRN BUSINESS PROJECT MANAGER 500 [place] [address] Nurse Practitioner Dermatology 09/21/22 Brea Quinn APRN BUSINESS PROJECT MANAGER [address] [place] [address] Assigned Surgical Provider 10/09/22 05/01/24 [place] [address] [place] [address] Assigned Musculoskeletal Provider 10/09/22 05/01/24 Alfonso Renteria MD [address] [place] [facility] 200 [place] [address] Assigned Neuroscience Provider 04/02/23 09/29/24 Radha Lomeli APRN BUSINESS PROJECT MANAGER [address] [facility] [address] [place] [address] Assigned Heart and Vascular Provider 05/28/23 11/29/24 Jelena David OD [address] [place] [address] Ophthalmology 06/15/23 Esha Grimm PA-C [address] [place] [phone] Assigned PCP 07/16/23 Valery Veronica PA-C [address] [place] [address]385 Physician Mortician Investigator Dermatology 09/19/23 Rey Tay MD [address] [place] [address] 623505 Gastroenterology 09/20/23 Rocky Zepeda DO [address] [place] [address] 612655 Physician Gastroenterology 09/20/23 Philip Dumont MD [address] [place] [address] Physician Ophthalmology 09/22/23 Meredith Carrera PA-C [address] [place] [address] Assigned Gastroenterology Provider 11/01/23 Neil Kent MD [address] [address] Dermatology 11/02/23 [place] [address] [place] [address] Neurological Surgery 12/26/23 Audrey Waite PA-C 500 [place] [address] Physician Mortician Investigator Dermatology 02/28/24 Valery Veronica PA-C [id number] [place] [address] Physician Mortician Investigator Dermatology 04/10/24 Herminia Hatch MD [address] [place] [address] [id number] Assigned Rheumatology Provider 07/02/24 [place] [address] [place] [address] [place] [address] Ophthalmology 08/30/24 [place] [address] [place] [address] Assigned Neuroscience Provider 09/30/24 Maru Man PA-C [address] [place] [address] Physician Mortician Investigator Dermatology 10/03/24 Maru Man PA-C [address] [place] [address] Physician Mortician Investigator Dermatology 10/22/24 Jelena David OD [address] [place] [address] Assigned Surgical Provider 10/31/24 Fabiano Correa NP [address] [place] [address] Assigned Heart and Vascular Provider 11/30/24 Walter Nowak MD [address] [place] [address] Physician Clinical Cardiac Electrophysiology 03/01/25 Liset Márquez MD [address] [facility] 300 [place] [address] food safety field specialist 03/13/25 Lauren Coronado, [facility] 909 [place], [place] 9[address] Pharmacist Pharmacist 04/15/25 documented as of this encounter
--- OUTSIDE RECORDS SUMMARY | 2025-04-26 23:56 | XMS_ITS | Encounter Summary ---
Author Organization [place] Address [address] [place] [address] Care Team Providers Care Air Force Senior Officer Name Role Phone Lita Oseguera Unavailable Unavailable Marija Edgar APRN RUST PROOFER Primary Care Provider + Marija Edgar APRN RUST PROOFER Unavailable [phone] Keisha Dotson MD Unavailable Diana Desir [facility] Unavailable Rain Galaviz PA-C Unavailable Tavia Wyatt MD Unavailable Erica Farrell APRN RUST PROOFER Unavailable Rich Barrett MD Unavailable [phone] Neil Kent MD Unavailable Diana Desir [facility] Unavailable Livan Sharif MD Unavailable Catherine Cm MD Unavailable + Valery Veronica PA-C Unavailable Brea Quinn SCRIPT DEVELOPER RUST PROOFER Unavailable Brea Quinn SCRIPT DEVELOPER RUST PROOFER Unavailable Jose Francisco Johnson MD Unavailable Catherine Cm MD Unavailable + Sydnie Martinez RN Unavailable Unavailable Alfonso Renteria MD Unavailable [phone] Esha Grimm PA-C Primary Care Provider Cheng Todd PA-C Unavailable Armani Radha Stovall ALRENE RUST PROOFER Unavailable Jelena David OD Unavailable Pao Joseph RN Unavailable Unavailable Esha Grimm PA-C Unavailable [phone] Valery Veronica PA-C Unavailable Rey Tay [...] Unavailable Liset Márquez MD Unavailable Lauren Coronado [facility] Unavailable Encounter Details Date Type Department Care Team (Late st Contact Info) Description 01/10/2023 MyC Medical Advice [facility] [address] [place] [phone] Lauren Claudio, PA-C [address] [place] [address] Social History Tobacco Use Types [...] How often do you attend sikh or gnosticism serv ices? Never 09/22/2021 Do [...] Answer Date Recorded PHQ-2 Score 1 10/11/2022 [facility] [...] a senior care (including now)? No 09/22/2021 Milan Depression Scale Answer Date Recorded [place] [...] CDT Legal Sex Female 4:13 AM PRODUCTION PACKAGER Gender Identity Female 03/02/2021 5:45 PM CDT [...] - 02/03/2023 11:52 AM CDT Incoming call Program Technician: [place] [facility] referral following up on [facility] med information that is needed to be faxed at [phone] Erica David MA documented in this encounter Plan of Treatment Upcoming Encounters Date Type Department Care Team (Late st Contact Info) Description 04/30/2025 10:30 AM CDT Office Visit [facility] Women's [facility] [address], [address] [place] [phone] Liset Márquez MD [address] [facility] 300 [place], [place] [address] 05/30/2025 2:45 PM PRODUCTION PACKAGER Office Visit [facility] 6405 [facility] [address] [place] [address] Fabinao Correa NP 6405 [place], [place] [phone] Walter Nowak MD 2400 [place], [place] [address] 08/07/2025 8:15 AM PRODUCTION PACKAGER Office Visit [facility] 6405 [facility] [address] [place] [phone] Lucien Grimes MD [address] [place] [phone] [place], [place] [address] 08/21/2025 9:00 AM PRODUCTION PACKAGER Office Visit [facility] [address] [phone] Neil Kent MD 500 [place] [address] 10/09/2025 10:45 AM CDT Virtual Visit [facility] Gastroenterology [facility] 909 [facility] 4th [place] [phone] Meredith Carrera PA-C [address] [place] [address] [phone] documented as of this encounter Visit Diagnoses [...] as of this encounter Care Teams [employer] Senior Officer Relationship Specialty Start Date End Date Marija Edgar APRN RUST PROOFER PCP - General Nurse Practitioner 04/30/20 04/14/23 Esha Grimm PA-C [address] [place] [phone] PCP - General Family Medicine 05/04/23 Lita Oseguera Personal Advocate & Liaison (PAL) 02/28/20 03/27/23 Marija Edgar APRN RUST PROOFER Assigned PCP 06/08/20 04/29/23 Keisha Dotson MD [address] [place] [address] Assigned Neuroscience Provider 06/04/20 04/01/23 Diana Desir [facility] [address] [place] [address] Pharmacist Pharmacist 04/17/21 Rain Galaviz PA-C [address] [place] [address] [address] [place] [address] Physician Solar Engineer Dermatology 04/28/21 Tavia Wyatt MD [address] [place] [address] DR [facility] [place] [place] [address] Dermatology 07/14/21 Erica Farrell APRN RUST PROOFER [address] [place], [place] [address] Nurse Practitioner Cardiovascular Disease 09/09/21 Rich Barrett MD [address] [place] [address] Physician Ophthalmology 01/21/22 Neil Kent MD 500 [place] [address] Dermatology 02/24/22 Diana Desir [facility] [address] [place] [address] Assigned MTM Pharmacist 04/07/22 Livan Sharif MD [address] [place] [address] [place] [address] Cardiovascular Disease 05/14/22 Catherine Cm MD [address] [facility] [address] [place] [address] Cardiovascular Disease 07/21/22 Valery Veronica PA-C [address] [place] [address]6525 Physician Solar Engineer Dermatology 07/21/22 Brea Quinn APRN RUST PROOFER [address] [place] [address] Nurse Practitioner Dermatology 09/21/22 Brea Quinn APRN RUST PROOFER [address] [place] [address] Assigned Surgical Provider 10/09/22 05/01/24 [place] [address] [address] Assigned Musculoskeletal Provider 10/09/22 05/01/24 Catherine Cm MD [address] [facility] [address] [place] [address] Assigned Heart and Vascular Provider 11/13/22 05/27/23 Sydnie Martinez RN Personal Advocate & Liaison (PAL) Family Medicine 03/28/23 07/31/23 Alfonso Renteria MD 5775 [facility] 200 [place] [address] Assigned Neuroscience Provider 04/02/23 09/29/24 Cheng Todd PA-C [address] [place] [address] Assigned PCP 04/30/23 07/15/23 Radha Lomeli APRN RUST PROOFER [address] [facility] [address] [place] [address] Assigned Heart and Vascular Provider 05/28/23 11/29/24 Jelena David OD [address] [facility] [place] [address] Ophthalmology 06/15/23 Pao Joseph, VJ Personal Advocate & Liaison (PAL) Nurse 08/01/23 11/07/23 Esha Grimm PA-C [address] [place] [phone] Assigned PCP 07/16/23 Valery Veronica PA-C [address] [place] [address] 769855 Physician Solar Engineer Dermatology 09/19/23 Rey Tay MD [address] [place] [address] Gastroenterology 09/20/23 Rocky Zepeda DO [address] [place] [address] 400775 Physician Gastroenterology 09/20/23 Philip Dumont MD [address] [place] [address] Physician Ophthalmology 09/22/23 Meredith Carrera PA-C [address] [place] [address] Assigned Gastroenterology Provider 11/01/23 Neil Kent MD [address] [address] Dermatology 11/02/23 [place] [address] [place] [address] Neurological Surgery 12/26/23 Audrey Waite PA-C [address] [place] [address] Physician Solar Engineer Dermatology 02/28/24 Valery Veronica PA-C [address]152 [address] [place] [address] Physician Solar Engineer Dermatology 04/10/24 Herminia Hatch MD [address] [place] [address] [phone] Assigned Rheumatology Provider 07/02/24 [place] [address] [place] [address] [place] [address] Ophthalmology 08/30/24 [place] [address] [address] [place] [address] Assigned Neuroscience Provider 09/30/24 Maru Man PA-C [address] [place] [address] Physician Solar Engineer Dermatology 10/03/24 Maru Man PA-C [address] [place] [address] Physician Solar Engineer Dermatology 10/22/24 Jelena David OD [address] [facility] [place] [address] Assigned Surgical Provider 10/31/24 Fabiano Correa NP [address] [place] [address] Assigned Heart and Vascular Provider 11/30/24 Walter Nowak MD [address] [place] 062185 Physician Clinical Cardiac Electrophysiology 03/01/25 Liset Márquez MD [address] [facility] 300 [place] [address] anode rebuilder 03/13/25 Lauren Coronado, [facility] 909 [place], [place] [address]995 Pharmacist Pharmacist 04/15/25 documented as of this encounter
--- OUTSIDE RECORDS SUMMARY | 2025-04-26 23:56 | XMS_ITS | Encounter Summary ---
Author Organization [employer] Address [address] [place] [address] Care Team Providers Care Nanotechnology Engineering Technician Name Role Phone Diana Desir [facility] Unavailable Rain Galaviz PA-C Unavailable [phone] Tavia Wyatt MD Unavailable [phone] Erica Farrell APRN SKILLED NURSING FACILITY COUNSELOR Unavailable Rich Barrett MD Unavailable [phone] Neil Kent MD Unavailable Diana Desir [facility] Unavailable [phone] Livan Sharif MD Unavailable Catherine Cm MD Unavailable + Valery Veronica PA-C Unavailable Brea Quinn SOCIAL WORKER ASSISTANT SKILLED NURSING FACILITY COUNSELOR Unavailable Brea Quinn SOCIAL WORKER ASSISTANT SKILLED NURSING FACILITY COUNSELOR Unavailable Jose Francisco Johnson MD Unavailable Alfonso Renteria MD Unavailable [phone] Esha Grimm PA-C Primary Care Provider Lomeli, Radha E SOCIAL WORKER ASSISTANT SKILLED NURSING FACILITY COUNSELOR Unavailable Jelena David OD Unavailable [phone] Esha Grimm PA-C Unavailable [phone] Valery Veronica PA-C Unavailable Rey Tay [...] Unavailable Liset Márquez MD Unavailable Lauren Coronado [facility] Unavailable Encounter Details Date Type Department Care Team (Late st Contact Info) Description 11/21/2023 Alejandro Medical Advice [facility] Gastroenterology Clinic [address] [place] [address] Sofia Alcantar Social History Tobacco [...] do you attend [facility] or scientologist services? 1 to 4 [...] Score 0 10/25/2023 [facility] Occupat ional Health [...] exercise at this level? 30 min 03/10/2023 Henning Depression Scale Answer Date Recorded Henning Depression Score 5 01/14/2021 Last EPDS Self [...] CDT Legal Sex Female 4:13 AM PATENT LAW SPECIALIST Gender Identity Female 03/02/2021 5:45 PM CDT Sexual Orientation Straight 02/28/2020 12 :51 AM CDT documented as of this encounter Plan of Treatment Upcoming Encounters Date Type Department Care Team (Late st Contact Info) Description 04/30/2025 10:30 AM CDT Office Visit [facility] Women's [place] [address], [address] [place] [phone] Liset Márquez MD [address] [address] 05/30/2025 2:45 PM PATENT LAW SPECIALIST Office Visit [facility] Heart [facility] [address] [place] [phone] Fabiano Correa, ENGINEERING WRITER 6405 [place], [place] 336265 Walter Nowak MD 2348 [place], [place] 4588[address] 08/07/2025 8:15 AM PATENT LAW SPECIALIST Office Visit [facility] Heart [facility] [address] [phone] [place] [address] 0246[address] 08/21/2025 9:00 AM PATENT LAW SPECIALIST Office Visit [facility] [address] [phone] Neil Kent MD [address] [place] [address] 586775 10/09/2025 10:45 AM CDT Virtual Visit [facility] Gastroenterology Clinic [address] 4th [place] [address] Meredith Carrera PA-C [address] [place] [address] [phone] documented as of this encounter Visit Diagnoses [...] Total Score: 4 06/20/20 8:40 AM PATENT LAW SPECIALIST documented as of this encounter Care Teams Nanotechnology Engineering Technician Relationship Specialty Start Date End Date Esha Grimm PA-C [address] [place] [phone] PCP - General Family Medicine 05/04/23 Diana Desir, [facility] [address] [place], [place] 5065[address] Pharmacist Pharmacist 04/17/21 Rain Galaviz PA-C [address] [place] [address] [address] [place] [facility] [address] Physician Intel Analyst Dermatology 04/28/21 Tavia Wyatt MD [address] [place] [address] [place] [phone] Dermatology 07/14/21 Erica Farrell APRN SKILLED NURSING FACILITY COUNSELOR [address] [place] [phone] [place], [place] [address] Nurse Practitioner Cardiovascular Disease 09/09/21 Rich Barrett MD [address] [place], [place] [address] Physician Ophthalmology 01/21/22 Neil Kent MD 500 [place], [place] 155395 Dermatology 02/24/22 Diana Desir, [facility] 3033 [place], [place] 416956 Assigned [place] Pharmacist 04/07/22 Livan Sharif MD [address] [place] [address] Cardiovascular Disease 05/14/22 Catherine Cm MD 6405 [facility] [address] [address] Cardiovascular Disease 07/21/22 Valery Veronica, PA-C 909 [place], [place] 6[address] Physician Intel Analyst Dermatology 07/21/22 Brea Quinn APRN SKILLED NURSING FACILITY COUNSELOR 500 [place], [place] 4795[address] Nurse Practitioner Dermatology 09/21/22 Brea Quinn APRN SKILLED NURSING FACILITY COUNSELOR 6401 [facility] [place], [place] 520202 Assigned Surgical Provider 10/09/22 05/01/24 [place] [address] [address] [place] [address] Assigned Musculoskeletal Provider 10/09/22 05/01/24 Alfonso Renteria MD [address] [facility] 200 [place], [place] 570096 Assigned Neuroscience Provider 04/02/23 09/29/24 Radha Lomeli, ARLENE SKILLED NURSING FACILITY COUNSELOR 6405 [facility] [address] [place] [id number] Assigned Heart and Vascular Provider 05/28/23 11/29/24 Jelena David OD [address] [facility] [address] [place] [id number] MD Ophthalmology 06/15/23 Esha Grimm PA-C [address] [place] [phone] Assigned PCP 07/16/23 Valery Veronica PA-C [address] [place] [address] 962555 Physician Intel Analyst Dermatology 09/19/23 Rey Tay MD [address] [place] [address] [phone] Gastroenterology 09/20/23 Rocky Zepeda DO [address] [place] [address] 354465 Physician Gastroenterology 09/20/23 Philip Dumont MD 516 [place] [address] Physician Ophthalmology 09/22/23 Meredith Carrera PA-C [address] [place] [address] Assigned Gastroenterology Provider 11/01/23 Neil Kent MD [address] [address] Dermatology 11/02/23 [place] [address] [place], [place] [phone] Neurological Surgery 12/26/23 Audrey Waite PA-C 500 [place] [address] Physician Intel Analyst Dermatology 02/28/24 Valery Veronica PA-C 871289 [place] [address] Physician Intel Analyst Dermatology 04/10/24 Herminia Hatch MD [address] [place] [address] [phone] Assigned Rheumatology Provider 07/02/24 Jelena David OD [address] [place] [address] [place] [id number] Ophthalmology 08/30/24 [place] [address] [place] [id number] Assigned Neuroscience Provider 09/30/24 Maru Man PA-C [address] [place] [address] Physician Intel Analyst Dermatology 10/03/24 Maru Man PA-C [address] [place] [address] Physician Intel Analyst Dermatology 10/22/24 Jelena David OD [address] [facility] [place] [id number] Assigned Surgical Provider 10/31/24 Fabiano Correa NP [address] [place] [id number] Assigned Heart and Vascular Provider 11/30/24 Walter Nowak MD [address] [place] [address] Physician Clinical Cardiac Electrophysiology 03/01/25 Liset Márquez MD 606 [facility] 300 [place] [address] bias cutter helper 03/13/25 Lauren Coronado, [facility] 909 [place], [place] [phone] Pharmacist Pharmacist 04/15/25 documented as of this encounter
--- OUTSIDE RECORDS SUMMARY | 2025-04-26 23:56 | XMS_ITS | Encounter Summary ---
Author Organization [facility] Address [address] [place] [address] Care Team Providers Care Hydraulic Riveter Name Role Phone Lita Oseguera Unavailable Unavailable Marija Edgar APRN BRIM CUTTER Primary Care Provider + Chanelle Mccann APRN CNM Unavailab le Kyara De La Fuente RN Unavailable [phone] Marija Edgar APRN BRIM CUTTER Unavailable [phone] Mynor Broussard MD Unavailable Keisha Dotson MD Unavailable Mary Mejia Unavailable Unavailable Stacey Briones ELECTRICIAN MASTER Unavailable [phone] Lesley Guillermo CHW Unavailable Mary Mejia Unavailable Unavailable Lita Oseguera Unavailable Unavailable Galo Burrell MD Unavailable Unavailable Cristina Wood Unavailable Lesley Guillermo CHW Unavailable Meredith Bedoya Unavailable Unavailable Cristina Wood Unavailable Diana Desir [facility] Unavailable Rain Galaviz PA-C Unavailable Summer Lara MD Unavailable [phone] Summer Lara MD Unavailable [phone] Summer Lara MD Unavailable [phone] Tavia Wyatt MD Unavailable [phone] Johnny Murillo MD Unavailable [phone] Erica Farrell APRN BRIM CUTTER Unavailable VikasTeresita [facility] Unavailable Tavia Wyatt MD Unavailable [phone] Diana Desir [facility] Unavailable [phone] Rich Barrett MD Unavailable [phone] Neil Kent MD Unavailable Roney Story [facility] Unavailable Erica Farrell APRN BRIM CUTTER Unavailable Diana Desir [facility] Unavailable [phone] Jelena David OD Unavailable Galo Burrell MD Unavailable Unavailable Livan Sharif MD Unavailable Livan Sharif MD Unavailable Catherine Cm MD Unavailable + Valery Veronica PA-C Unavailable [phone] Catherine Cm MD Unavailable + Johnny Murillo MD Unavailable [phone] Brea Quinn APRN BRIM CUTTER Unavailable [phone] Brea Quinn APRN BRIM CUTTER Unavailable [phone] Jose Francisco Johnson MD Unavailable Livan Sharif MD Unavailable Catherine Cm MD Unavailable + Sydnie Martinez RN Unavailable Unavailable Alfonso Renteria MD Unavailable [phone] Esha Grimm PA-C Primary Care Provider Cheng Todd PA-C Unavailable Radha Lomeli APRN BRIM CUTTER Unavailable Jelena David OD Unavailable Pao Joseph RN Unavailable Unavailable Esha Grimm PA-C Unavailable [phone] Valery Veronica PA-C Unavailable Rey Tay [...] OD Unavailable Fabiano Correa NP Unavailable Walter Nowka MD Unavailable Liset Márquez MD Unavailable Cliff L [facility] Unavailable [phone] Reason for Visit * Reason Comments Medication Refill Encounter Details Date Type Department Care Team (Late st Contact Info) Description 07/14/[address] [address] Rakesh Cid PA-C [address] [place] [address] Medication Refill Social History Tobacco Use Types [...] CDT Legal Sex Female 4:13 AM MACHINE ASSEMBLER FOR PULLER OVER Gender Identity Female 03/02/2021 5:45 PM CDT Sexual Orientation Straight 02/28/2020 12 :51 AM CDT COVID-19 Exposure Response Date Recorded In the last month, have you been in contact with someone who was confirmed or suspected to have Coronavirus / COVID-19? No / Unsure 06/24/2020 3:01 PM MACHINE ASSEMBLER FOR PULLER OVER documented as of this encounter Miscellaneous Notes * Telephone Encounter - Estephania Black RN - 07/16/2020 11:38 AM MACHINE ASSEMBLER FOR PULLER OVER Routing refill request to provider for review/approval because: Labs out of range: PHQ9> 4 patient was seen 3 weeks ago. Estephania Blcak RN Flex INE ASSEMBLER FOR PULLER OVER * Telephone Encounter - Brea Perry RN - 07/16/2020 11:34 AM MACHINE ASSEMBLER FOR PULLER OVER Routing to correct clinic. INE ASSEMBLER FOR PULLER OVER documented in this encounter Plan of Treatment Upcoming Encounters Date Type Department Care Team (Late st Contact Info) Description 04/30/2025 10:30 AM CDT Office Visit [facility] [address], [place] [address] [place] [address] Liset Márquez MD [address] [facility] 300 [place] [address] 05/30/2025 2:45 PM MACHINE ASSEMBLER FOR PULLER OVER Office Visit [facility] [address] [phone] Fabiano Correa NP 6405 [place], [place] 2427[address] Walter Nowak MD 5394 [place], [place] 550455 08/07/2025 8:15 AM MACHINE ASSEMBLER FOR PULLER OVER Office Visit [facility] [place] [id number] [address] [phone] Lucien Grimes MD [address] [address] 08/21/2025 9:00 AM MACHINE ASSEMBLER FOR PULLER OVER Office Visit [facility] [address] [phone] Neil Kent MD 500 [place], [place] 220935 10/09/2025 10:45 AM CDT Virtual Visit [facility] Gastroenterology [address] 4th [place] [phone] Meredith Carrera PA-C 909 [place] [address] documented as of this encounter Visit Diagnoses Diagnosis Anxiety Anxiety state, unspecified documented in this encounter Additional Health Concerns Infection Onset Date Last Indicated Resolved Time Rule Out COVID-19 07/30/2020 07/30/2020 07/30/2020 7:11 PM MACHINE ASSEMBLER FOR PULLER OVER Rule Out COVID-19 08/30/2020 08/30/2020 08/30/2020 5:05 PM MACHINE ASSEMBLER FOR PULLER OVER Rule Out COVID-19 09/24/2020 09/24/2020 09/24/2020 9:24 AM CDT Rule Out COVID-19 11/05/2020 11/05/2020 11/06/2020 1:09 PM CDT Rule Out COVID-19 05/11/2021 05/11/2021 05/13/2021 10:18 AM CDT Rule Out COVID-19 07/13/2021 07/13/2021 07/14/2021 3:04 PM MACHINE ASSEMBLER FOR PULLER OVER Rule Out COVID-19 07/18/2021 07/18/2021 07/20/2021 1:56 PM MACHINE ASSEMBLER FOR PULLER OVER COVID-19 07/18/2021 07/18/2021 08/08/2021 11:3 9 PM MACHINE ASSEMBLER FOR PULLER OVER Rule Out COVID-19 12/18/2021 12/18/2021 12/19/2021 11:34 AM CDT Rule Out COVID-19 02/24/2022 02/24/2022 02/25/2022 1:08 PM CDT Rule Out COVID-19 04/26/2022 04/26/2022 04/26/2022 6:47 AM CDT Rule Out COVID-19 05/17/2022 05/17/2022 05/17/2022 10:20 PM MACHINE ASSEMBLER FOR PULLER OVER Rule Out COVID-19 06/09/2022 06/09/2022 06/09/2022 9:35 AM MACHINE ASSEMBLER FOR PULLER OVER COVID-19 06/09/2022 06/09/2022 06/30/2022 11:4 1 PM MACHINE ASSEMBLER FOR PULLER OVER Rule Out COVID-19 11/10/2022 11/10/2022 11/11/2022 12:17 [...] Total Score: 9 06/25/20 20 7:04 AM MACHINE ASSEMBLER FOR PULLER OVER documented as of this encounter Care Teams Hydraulic Riveter Relationship Specialty Start Date End Date Marija Edgar APRN BRIM CUTTER PCP - General Nurse Practitioner 04/30/20 04/14/23 Esha Grimm PA-C [address] [place] [phone] PCP - General Family Medicine 05/04/23 Lita Oseguera Personal Advocate & Liaison (PAL) 02/28/20 03/27/23 Chanelle Mccann APRN CNM [address] [place] [address] 288537 Assigned OBGYN Provider 05/02/2005/09 Kyara De La Fuente, VJ Specialty Editor Greeting Card Neurology 06/04/20 03/05/21 Marija Edgar APRN BRIM CUTTER Assigned PCP 06/08/20 04/29/23 Mynor Broussard MD 909 [place], [place] 198135 Assigned Surgical Provider 06/01/20 11/28/21 Keisha Dotson MD 909 [place], [place] 245425 Assigned Neuroscience Provider 06/04/20 04/01/23 Mary Mejia Financial Resource Worker 08/07/20 08/21/20 Stacey Briones, [facility] Lead Editor Greeting Card Primary Care - CC 08/11/20 12/30/20 Lesley Guillermo, [facility] Community Health Worker 08/11/20 10/01/20 Mary Mejia Financial Resource Worker 09/02/20 10/06/20 Lita Oseguera Personal Advocate & Liaison (PAL) Family Medicine 09/10/20 09/21/20 Galo Burrell MD Assigned Heart and Vascular Provider 10/05/20 04/02/22 Cristina Wood Financial Resource Worker 10/07/20 10/14/20 Lesley Guillermo, [facility] Community Health Worker 10/23/20 12/30/20 Meredith Bedoya Financial Resource Worker 10/23/20 11/23/20 Cristina Wood Financial Resource Worker 02/09/21 02/09/21 Diana Desir, [facility] 3033 [place] [address] Pharmacist Pharmacist 04/17/21 Rain Galaviz PA-C [address] [place] [address] [place] [address] Physician Film Processing Utility Worker Dermatology 04/28/21 Summer Lara MD [address] [place] [address] 014254 Assigned OBGYN Provider 05/10/2105/23 Summer Lara MD [address] [place] [address] 714624 Assigned OBGYN Provider 05/31/21 Summer Lara MD [address] [place] [address] Assigned OBGYN Provider 05/24/2105/30 Tavia Wyatt MD [address] [place] [address] Dermatology 07/14/21 Johnny Murillo MD [facility] [address] [place] [address] Assigned Musculoskeletal Provider 08/30/21 03/17/22 Erica Farrell APRN BRIM CUTTER [address] [facility] [address] [place] [address] Nurse Practitioner Cardiovascular Disease 09/09/21 Teresita Bean [facility] [address] [place] [phone] Pharmacist Pharmacist 09/24/21 09/29/21 Tavia Wyatt MD [address] [place] [address] Assigned Surgical Provider 11/29/21 05/07/22 Diana Desir [facility] [address] [place] [address] Assigned MTM Pharmacist 01/02/22 Rich Barrett MD [address] [place] [address] Physician Ophthalmology 01/21/22 Neil Kent MD 500 [place], [place] 537765 Dermatology 02/24/22 Roney Story DPM [address] [facility] [address] [place] [address] Assigned Musculoskeletal Provider 03/20/22 08/13/22 Erica Farrell APRN BRIM CUTTER 1700 [place] [address] Assigned Heart and Vascular Provider 04/03/22 04/16/22 Diana Desir [facility] [address] [place] [address] Assigned MTM Pharmacist 04/07/22 Jelena David OD [address] [facility] [place] [address] Assigned Surgical Provider 05/08/22 10/08/22 Galo Burrell MD Assigned Heart and Vascular Provider 04/17/22 06/11/22 Livan Sharif MD [address] [address] [place] [address] Cardiovascular Disease 05/14/22 Livan Sharif MD [address] [address] [place] [address] Assigned Heart and Vascular Provider 06/12/22 07/23/22 Catherine Cm MD [address] [place], [place] 816[address] Cardiovascular Disease 07/21/22 Valery Veronica PA-C [address] [place] [address] 739515 Physician Film Processing Utility Worker Dermatology 07/21/22 Catherine Cm MD [address] [place], [place] 503515 Assigned Heart and Vascular Provider 07/24/22 11/05/22 Johnny Murillo MD [address] [phone] Assigned Musculoskeletal Provider 08/14/22 10/08/22 Brea Quinn APRN BRIM CUTTER [address] [place] [address] 776125 Nurse Practitioner Dermatology 09/21/22 Brea Quinn, TOW BOAT CAPTAIN BRIM CUTTER [address] [place] [address] Assigned Surgical Provider 10/09/22 05/01/24 [place] [address] [facility] 300 [place] [address] Assigned Musculoskeletal Provider 10/09/22 05/01/24 Livan Sharif MD [address] [address] [place] [address] Assigned Heart and Vascular Provider 11/06/22 11/12/22 Catherine Cm MD [address] [place] [address] Assigned Heart and Vascular Provider 11/13/22 05/27/23 Sydnie Martinez RN Personal Advocate & Liaison (PAL) Family Medicine 03/28/23 07/31/23 Alfonso Renteria MD 5775 [facility] 200 [place] [address] Assigned Neuroscience Provider 04/02/23 09/29/24 Cheng Todd PA-C [address] [place] [address] [phone] Assigned PCP 04/30/23 07/15/23 Radha Lomeli APRN BRIM CUTTER [address] [place] [address] Assigned Heart and Vascular Provider 05/28/23 11/29/24 Jelena David, SONJA [address] [facility] [place] [address] MD Ophthalmology 06/15/23 Pao Joseph, RN Personal Advocate & Liaison (PAL) Nurse 08/01/23 11/07/23 Esha Grimm PA-C [address] [place] [phone] Assigned PCP 07/16/23 Valery Veronica PA-C [address] [place] [address] 313665 Physician Film Processing Utility Worker Dermatology 09/19/23 Rey Tay MD [address] [place] [address] 930815 MD Gastroenterology 09/20/23 Rocky Zepeda DO [address] [place] [address] 895675 Physician Gastroenterology 09/20/23 Philip Dumont MD [address] [place] [address] 532505 Physician Ophthalmology 09/22/23 Meredith Carrera PA-C [address] [place] [address] 838285 Assigned Gastroenterology Provider 11/01/23 Neil Kent MD [address] [address] Dermatology 11/02/23 [place] [address] [place] [address] Neurological Surgery 12/26/23 Audrey Waite PA-C 500 [place] [address] Physician Film Processing Utility Worker Dermatology 02/28/24 Valery Veronica PA-C [address] [place] [address] Physician Film Processing Utility Worker Dermatology 04/10/24 Herminia Hatch MD [address] [place] [address] [id number] Assigned Rheumatology Provider 07/02/24 Jelena David OD [address] [place] [address] [place] [address] Ophthalmology 08/30/24 [place] [address] [place] [address] Assigned Neuroscience Provider 09/30/24 Maru Man PA-C [address] [place] [address] Physician Film Processing Utility Worker Dermatology 10/03/24 Maru Man PA-C [address] [place] [address] Physician Film Processing Utility Worker Dermatology 10/22/24 Jelena David OD [address] [place] [address] [place] [address] Assigned Surgical Provider 10/31/24 Fabiano Correa NP [address] [place] [address] Assigned Heart and Vascular Provider 11/30/24 Walter Nowak MD [address] [place] [address] Physician Clinical Cardiac Electrophysiology 03/01/25 Liset Márquez MD [address] [place] [address] firesetter 03/13/25 Lauren Coronado, [facility] [address] [place] [address] 174005 Pharmacist Pharmacist 04/15/25 documented as of this encounter
--- OUTSIDE RECORDS SUMMARY | 2025-04-26 23:56 | XMS_ITS | Encounter Summary ---
Author Organization [facility] Address [address] [place] [address] Care Team Providers Care Facilities Flight Check Pilot Name Role Phone Diana Desir [facility] Unavailable Rain Galaviz PA-C Unavailable [phone] Tavia Wyatt MD Unavailable [phone] Erica Farrell APRN CLIENT INSIGHTS CONSULTANT Unavailable Rich Barrett MD Unavailable [phone] Neil Kent MD Unavailable Diana Desir [facility] Unavailable Livan Sharif MD Unavailable Catherine Cm MD Unavailable + Valery Veronica PA-C Unavailable [phone] Brea Quinn WADER BOOT TOP ASSEMBLER CLIENT INSIGHTS CONSULTANT Unavailable Brea Quinn WADER BOOT TOP ASSEMBLER CLIENT INSIGHTS CONSULTANT Unavailable Jose Francisco Johnson MD Unavailable Alfonso Renteria MD Unavailable [phone] Esha Grimm PA-C Primary Care Provider Lomeli, Radha E WADER BOOT TOP ASSEMBLER CLIENT INSIGHTS CONSULTANT Unavailable Jelena David OD Unavailable [phone] Pao Joseph RN Unavailable Unavailable Esha Grimm Adam PA-C Unavailable [phone] Valery Veronica PA-C Unavailable Rey Tay MD Unavailable Rocky Zepeda DO Unavailable Philip Dumont MD Unavailable Meredith Carrera PA-C Unavailable [phone] Neil Kent MD Unavailable Juan Pablo Emmanuel MD Unavailable Audrey Waite PA-C Unavailable Valery Veronica PA-C Unavailable Herminia Hatch MD Unavailable Jelena David OD Unavailable Juan Pablo Emmanuel MD Unavailable Maru Man PA-C Unavailable Maru Man PA-C Unavailable Jelena David OD Unavailable Fabiano Correa NP Unavailable Walter Nowak MD Unavailable Liset Márquez MD Unavailable Lauren Coronado [facility] Unavailable Encounter Details Date Type Department Care Team (Late st Contact Info) Description 10/25/2023 [facility] G[facility]ology Clinic [address] [place] [address] Nelly Mesa, RD 909 [place] [address] Social History Tobacco Use Types Packs/Day Years [...] you attend [facility] or yazidi services? 1 to 4 [...] Score 0 10/25/2023 [facility] - [...] exercise at this level? 30 min 03/10/2023 [place] Depression Scale Answer Date Recorded [place] Depression Score 5 01/14/2021 Last EPDS [...] PM CDT Legal Sex Female 4:13 AM FILM INSPECTOR Gender Identity Female 03/02/2021 5:45 PM CDT Sexual Orientation Straight 02/28/2020 12 :51 AM CDT documented as of this encounter Plan of Treatment Upcoming Encounters Date Type Department Care Team (Taylor Contact Info) Description 04/30/2025 10:30 AM CDT Office Visit [facility] [address], [address] [place] [phone] Liset Márquez MD [address] [facility] 300 [place] [address] 05/30/2025 2:45 PM FILM INSPECTOR Office [facility] 6405 [facility] [address] [place] [phone] Fabiano Correa, INSPECTING ENGINEER 2535 [place], [place] 824505 Walter Nowak MD 1090 [place], [place] [address] 08/07/2025 8:15 AM FILM INSPECTOR Office [facility] [address] [address] [place] [address] 780785 08/21/2025 9:00 AM FILM INSPECTOR Office Visit [facility] [address] [phone] Neil Kent MD 500 [place], [place] [phone] 10/09/2025 10:45 AM CDT Virtual Visit [facility] Gastroenterology Clinic [place] 909 [facility] 4th [place] [phone] Meredith Carrera PA-C [address] [place] [address] documented as of this encounter Visit [...] Total Score: 4 06/20/20 23 8:40 AM FILM INSPECTOR documented as of this encounter Care Teams Facilities Flight Check Pilot Relationship Specialty Start Date End Date Esha Grimm PA-C [address] [place] [phone] PCP - General Family Medicine 05/04/23 Diana Desir, [facility] 3033 [place] [address] Pharmacist Pharmacist 04/17/21 Rain Galaviz PA-C [address] [place] [address] [address] [place] [address] Physician Machine Adjuster Dermatology 04/28/21 Tavia Wyatt MD [address] [place] [address] [place] [address] Dermatology 07/14/21 Erica Farrell APRN CLIENT INSIGHTS CONSULTANT [address] [place] [address] Nurse Practitioner Cardiovascular Disease 09/09/21 Rich Barrett MD [address] [place] 364565 Physician Ophthalmology 01/21/22 Neil Kent MD 500 [place], [place] 365995 MD Dermatology 02/24/22 Diana Desir, [facility] 30[address] [place], [place] 569926 Assigned [place] Pharmacist 04/07/22 Livan Sharif MD [address] [place] 55[address]85 Cardiovascular Disease 05/14/22 Catherine Cm MD [address] [place] 872415 Cardiovascular Disease 07/21/22 Valery Veronica, PA-C 909 [place], [place] 818115 Physician Machine Adjuster Dermatology 07/21/22 Brea Quinn APRN CLIENT INSIGHTS CONSULTANT 500 [place], [place] 714795 Nurse Practitioner Dermatology 09/21/22 Brea Quinn APRN CLIENT INSIGHTS CONSULTANT 6401 [facility] [place] [address] Assigned Surgical Provider 10/09/22 05/01/24 [place] [address] [place] [address] Assigned Musculoskeletal Provider 10/09/22 05/01/24 Alfonso Renteria MD 5775 [facility] 200 [place], [place] 354726 Assigned Neuroscience Provider 04/02/23 09/29/24 Radha Lomeli APRN CLIENT INSIGHTS CONSULTANT 6405 [facility] [address] [place] [address] Assigned Heart and Vascular Provider 05/28/23 11/29/24 Jelena David, SONJA [address] [place] [address] Ophthalmology 06/15/23 Pao Joseph, VJ Personal Advocate & Liaison (PAL) Nurse 08/01/23 11/07/23 Esha Grimm PA-C [address] [place] [address] Assigned PCP 07/16/23 Valery Veronica PA-C [address] [place] [address] 150685 Physician Machine Adjuster Dermatology 09/19/23 Rey Tay MD [address] [place] [address] [id number] MD Gastroenterology 09/20/23 Rocky Zepeda DO [address] [place] [address] 092455 Physician Gastroenterology 09/20/23 Philip Dumont MD [address] [place] [address] Physician Ophthalmology 09/22/23 Meredith Carrera PA-C [address] [place] [address] 166255 Assigned Gastroenterology Provider 11/01/23 Neil Kent MD [address] [address] MD Dermatology 11/02/23 [place] [address] 915407 Neurological Surgery 12/26/23 Audrey Waite PA-C 500 [place] [address] Physician Machine Adjuster Dermatology 02/28/24 Valery Veronica PA-C 834881 [place] [address] Physician Machine Adjuster Dermatology 04/10/24 Herminia Hatch MD [facility]5 [place] [address] Assigned Rheumatology Provider 07/02/24 Jelena David OD [address] [place] [address] Ophthalmology 08/30/24 [place] [address] [place] [address] Assigned Neuroscience Provider 09/30/24 Maru Man PA-C [address] [place] [address] Physician Machine Adjuster Dermatology 10/03/24 Maru Man PA-C [address] [place] [address] Physician Machine Adjuster Dermatology 10/22/24 Jelena David, SONJA [address] [place] [address] Assigned Surgical Provider 10/31/24 Fabiano [place], BRYCE [address] [place] [address] Assigned Heart and Vascular Provider 11/30/24 Walter Nowak MD [address] [place] [address] Physician Clinical Cardiac Electrophysiology 03/01/25 Liset Márquez MD [address] [address] remanufacturing technician 03/13/25 Lauren Coronado, [facility] [address] [place] [address] 653165 Pharmacist Pharmacist 04/15/25 documented as of this encounter
--- OUTSIDE RECORDS SUMMARY | 2025-04-26 23:56 | XMS_ITS | Encounter Summary ---
Author Organization [place] Address [address] [place] [address] Care Team Providers Care Relocation Counselor Name Role Phone Diana Desir [facility] Unavailable Rain Galaviz PA-C Unavailable Tavia Wyatt MD Unavailable [phone] Erica Farrell APRN FINANCE BUSINESS PARTNER Unavailable Rich Barrett MD Unavailable [phone] Neil Kent MD Unavailable Diana Desir [facility] Unavailable Livan Sharif MD Unavailable Catherine Cm MD Unavailable + Valery Veronica PA-C Unavailable Brea Quinn PUBLICATION DESIGNER FINANCE BUSINESS PARTNER Unavailable Brea Quinn PUBLICATION DESIGNER FINANCE BUSINESS PARTNER Unavailable Jose Francisco Johnson MD Unavailable Alfonso Renteria MD Unavailable [phone] Esha Grimm PA-C Primary Care Provider Lomeli, Radha E PUBLICATION DESIGNER FINANCE BUSINESS PARTNER Unavailable Jelena David OD Unavailable [phone] Esha Grimm PA-C Unavailable [phone] Valery Veronica PA-C Unavailable Rey Tay [...] Unavailable Liset Márquez MD Unavailable Lauren Coronado [facility] Unavailable Encounter Details Date Type Department Care Team (Late st Contact Info) Description 11/15/2023 MyC Medical Advice [address] [address] Vivian Grant Social History Tobacco Use Types [...] attend [facility] or [facility]? 1 to 4 [...] PM CDT Legal Sex Female 4:13 AM LICENSED INSURANCE AGENT Gender Identity Female 03/02/2021 5:45 PM CDT Sexual Orientation Straight 02/28/2020 12 :51 AM CDT documented as of this encounter Plan of Treatment Upcoming Encounters Date Type Department Care Team (Late st Contact Info) Description 04/30/2025 10:30 AM CDT Office Visit [facility] [place] [address], [address] [place] [phone] Liset Márquez MD [address] [facility] 300 [place] [address] 05/30/2025 2:45 PM LICENSED INSURANCE AGENT Office Visit [facility] Heart [facility] [address] [facility] [address] [place] [phone] Fabiano Correa, BRYCE 6405 [place], [place] 805725 Walter Nowak MD [address] [facility] [place], [place] [address] 08/07/2025 8:15 AM LICENSED INSURANCE AGENT Office Visit [facility] Heart [facility] [address] [place] [phone] Lucien Grimes MD [address] [place] [address] [place] [id number] 08/21/2025 9:00 AM LICENSED INSURANCE AGENT Office Visit [facility] [address] [phone] Neil Kent MD [address] [place] [address] 717835 10/09/2025 10:45 AM CDT Virtual Visit [facility] [address] 4th [place] [phone] Meredith Carrera PA-C [address] [place] [address] 294195 documented as of this encounter Visit Diagnoses [...] Depression Total Score: 4 06/20/20 8:40 AM LICENSED INSURANCE AGENT documented as of this encounter Care Teams Relocation Counselor Relationship Specialty Start Date End Date Esha Grimm PA-C [address] [place] [phone] PCP - General Family Medicine 05/04/23 Diana Desir, [facility] [address] [place], [place] [address] Pharmacist Pharmacist 04/17/21 Rain Galaviz PA-C [address] [place] [address] [address] [place] [address] Physician Scow Captain Dermatology 04/28/21 Tavia Wyatt MD [address] [place] [address] EN[place] KNUTSON [id number] Dermatology 07/14/21 Erica Farrell APRN FINANCE BUSINESS PARTNER 6405 [facility] [address] [place], [place] 9499[address] Nurse Practitioner Cardiovascular Disease 09/09/21 Rich Barrett MD [address] [place], [place] 35[address] Physician Ophthalmology 01/21/22 Neil Kent MD 500 [place], [place] 749685 Dermatology 02/24/22 Diana Desir, [facility] 3033 [place], [place] 284896 Assigned [place] Pharmacist 04/07/22 Livan Sharif MD [address] [place], [place] [address] Cardiovascular Disease 05/14/22 Catherine Cm MD [address] [facility] [address] 214[address] Cardiovascular Disease 07/21/22 Valery Veronica, PA-C 909 [place], [place] 756635 Physician Scow Captain Dermatology 07/21/22 Brea Quinn APRN FINANCE BUSINESS PARTNER 500 [place], [place] 853785 Nurse Practitioner Dermatology 09/21/22 Brea Quinn APRN FINANCE BUSINESS PARTNER 6401 [facility] [place], [place] [address] Assigned Surgical Provider 10/09/22 05/01/24 [place] [address] [address] [place] [address] Assigned Musculoskeletal Provider 10/09/22 05/01/24 Alfonso Renteria MD [address] [facility] 200 [place], [place] 037756 Assigned Neuroscience Provider 04/02/23 09/29/24 Radha Lomeli APRN FINANCE BUSINESS PARTNER 6405 [facility] [address] [place], [place] 574505 Assigned Heart and Vascular Provider 05/28/23 11/29/24 Jelena David OD [address] [facility] [place] [address] Ophthalmology 06/15/23 Esha Grimm PA-C [address] [place] [phone] Assigned PCP 07/16/23 Valery Veronica PA-C [address] [place] [address] Physician Scow Captain Dermatology 09/19/23 Rey Tay MD [address] [place] [address] Gastroenterology 09/20/23 Rocky Zepeda DO [address] [place] [address] Physician Gastroenterology 09/20/23 Philip Dumont MD 516 [place] [address] Physician Ophthalmology 09/22/23 Meredith Carrera PA-C [address] [place] [address] Assigned Gastroenterology Provider 11/01/23 Neil Kent MD [address] [address] Dermatology 11/02/23 [place] [address] [place], [place] 087[address] Neurological Surgery 12/26/23 Audrey Waite PA-C 500 [place] [address] Physician Scow Captain Dermatology 02/28/24 Valery Veronica PA-C 577178 [place] [address] Physician Scow Captain Dermatology 04/10/24 Herminia Hatch MD [address] [place] [address] [phone] Assigned Rheumatology Provider 07/02/24 Jelena David OD [address] [place] [address] [place] [address] Ophthalmology 08/30/24 [place] [address] [place] [address] Assigned Neuroscience Provider 09/30/24 Maru Man PA-C [address] [place] [address] Physician Scow Captain Dermatology 10/03/24 Maru Man PA-C [address] [place] [address] Physician Scow Captain Dermatology 10/22/24 Jelena David OD [address] [facility] [place] [address] Assigned Surgical Provider 10/31/24 Fabiano Correa NP [address] [place] [address] Assigned Heart and Vascular Provider 11/30/24 Walter Nowak MD [address] [place] [address] Physician Clinical Cardiac Electrophysiology 03/01/25 Liset Márquez MD [address] [address] chart computer 03/13/25 Lauren Coronado, [facility] 909 [place], [place] 802995 Pharmacist Pharmacist 04/15/25 documented as of this encounter
--- OUTSIDE RECORDS SUMMARY | 2025-04-26 23:56 | XMS_ITS | Encounter Summary ---
Author Organization [place] Address [address] [place] [address] Care Team Providers Care Real Estate Agency Principal Name Role Phone Dinaa Desir [facility] Unavailable Rain Galaviz PA-C Unavailable Tavia Wyatt MD Unavailable [phone] Erica Farrell APRN CARVING MACHINE OPERATOR Unavailable Rich Barrett MD Unavailable [phone] Neil Kent MD Unavailable Diana Desir [facility] Unavailable Livan Sharif MD Unavailable Catherine Cm MD Unavailable + Valery Veronica PA-C Unavailable Brea Quinn WATERPROOF BAG SEWER CARVING MACHINE OPERATOR Unavailable Brea Quinn WATERPROOF BAG SEWER CARVING MACHINE OPERATOR Unavailable Jose Francisco Johnson MD Unavailable Alfonso Renteria MD Unavailable [phone] Esha Grimm PA-C Primary Care Provider [phone] Lomeli, Radha E WATERPROOF BAG SEWER CARVING MACHINE OPERATOR Unavailable Jelena David OD Unavailable Esha Grimm PA-C Unavailable [phone] JeremíasValery damon PA-C Unavailable Rey Tay [...] Unavailable Lauren Coronado [facility] Unavailable Encounter Details Date Type Department Care Team (Late st Contact Info) Description 11/16/2023 MyC Medical Advice [address] [address] Asiya Reddy, RN Social History [...] exercise at this level? 30 min 03/10/2023 Sumner Depression Scale Answer Date Recorded Sumner Depression Score 5 01/14/2021 Last EPDS Self [...] CDT Legal Sex Female 4:13 AM ASSISTANT DIRECTOR OF PLANT OPERATIONS Gender Identity Female 03/02/2021 5:45 PM CDT Sexual Orientation Straight 02/28/2020 12 :51 AM CDT documented as of this encounter Plan of Treatment Upcoming Encounters Date Type Department Care Team (Late st Contact Info) Description 04/30/2025 10:30 AM CDT Office Visit [facility] Women's [place] [address], [address] [place] [phone] Liset Márquez MD [address] [address] 05/30/2025 2:45 PM ASSISTANT DIRECTOR OF PLANT OPERATIONS Office Visit [facility] Heart [facility] [address] [phone] Fabiano Correa, HEADLINE WRITER 6405 [place], [place] 455255 Walter Nowak MD 9881 [place], [place] [address] 08/07/2025 8:15 AM ASSISTANT DIRECTOR OF PLANT OPERATIONS Office Visit [facility] Heart [place] [address] [phone] Lucien Grimes MD [address] [address] 08/21/2025 9:00 AM ASSISTANT DIRECTOR OF PLANT OPERATIONS Office Visit [facility] [address] [phone] Neil Kent MD [address] [place] [address] 577425 10/09/2025 10:45 AM CDT Virtual Visit [facility] Gastroenterology Clinic [address] 4th [place] [address] Meredith Carrera PA-C [address] [place] [address] 606875 documented as of this encounter Visit Diagnoses [...] Score: 4 06/20/20 23 8:40 AM ASSISTANT DIRECTOR OF PLANT OPERATIONS documented as of this encounter Care Teams Real Estate Agency Principal Relationship Specialty Start Date End Date Esha Grimm PA-C [address] [place] [phone] PCP - General Family Medicine 05/04/23 Diana Desir, [facility] [address] [place], [place] 9[address] Pharmacist Pharmacist 04/17/21 Rain Galaviz PA-C [address] [place] [address] [address] [facility] [place] [address] Physician Electrician Master Dermatology 04/28/21 Tavia Wyatt MD [address] [place] [address] ENMA KNUTSON [phone] Dermatology 07/14/21 Erica Farrell APRN CARVING MACHINE OPERATOR 6405 [facility] [address] [place], [place] 9[address] Nurse Practitioner Cardiovascular Disease 09/09/21 Rich Barrett MD [address] [place], [place] [address] Physician Ophthalmology 01/21/22 Neil Kent MD 500 [place], [place] 6[address]265 Dermatology 02/24/22 Diana Desir, [facility] 3033 [place], [place] 085256 Assigned MTM Pharmacist 04/07/22 Livan Sharif MD [address] [place] [address] Cardiovascular Disease 05/14/22 Catherine Cm MD 6405 [facility] [address] 727075 Cardiovascular Disease 07/21/22 Valery Veronica, PA-C 909 [place], [place] 8[address] Physician Electrician Master Dermatology 07/21/22 Brea Quinn APRN CARVING MACHINE OPERATOR 500 [place], [place] 6[address]85 Nurse Practitioner Dermatology 09/21/22 Brea Quinn APRN CARVING MACHINE OPERATOR 6401 [facility] [place], [place] [address] Assigned Surgical Provider 10/09/22 05/01/24 [place] [address] [place] [address] Assigned Musculoskeletal Provider 10/09/22 05/01/24 Alfonso Rneteria MD [address] [facility] 200 [place], [place] 222246 Assigned Neuroscience Provider 04/02/23 09/29/24 Radha Lomeli, ARLENE CARVING MACHINE OPERATOR 6405 [facility] [address] [place] 083065 Assigned Heart and Vascular Provider 05/28/23 11/29/24 Jelena David OD [address] [facility] [address] [place] [phone] Ophthalmology 06/15/23 Esha Grimm PA-C [address] [place] [phone] Assigned PCP 07/16/23 Valery Veronica PA-C [address] [place] [address] 748065 Physician Electrician Master Dermatology 09/19/23 Rey Tay MD [address] [place] [address] 142555 Gastroenterology 09/20/23 Rocky Zepeda DO [address] [place] [address] 165465 Physician Gastroenterology 09/20/23 Philip Dumont MD 516 [place] [address] Physician Ophthalmology 09/22/23 Meredith Carrera PA-C [address] [place] [address] Assigned Gastroenterology Provider 11/01/23 Neil Kent MD [address] [address] Dermatology 11/02/23 [place] [address] [place], [place] [phone] Neurological Surgery 12/26/23 Audrey Waite PA-C 500 [place] [address] Physician Electrician Master Dermatology 02/28/24 Valery Veronica PA-C 589753 99[place], [place] 455[address] Physician Electrician Master Dermatology 04/10/24 Herminia Hatch MD [address] [place] [address] [phone] Assigned Rheumatology Provider 07/02/24 Jelena David OD [address] [place] [address] [place] [address] Ophthalmology 08/30/24 [place] [address] [place] [address] Assigned Neuroscience Provider 09/30/24 Maru Man PA-C [address] [place] [address] Physician Electrician Master Dermatology 10/03/24 Maru Man PA-C [address] [place] [address] Physician Electrician Master Dermatology 10/22/24 Jelena David OD [address] [place] [address] Assigned Surgical Provider 10/31/24 Fabiano Correa NP [address] [place] [address] Assigned Heart and Vascular Provider 11/30/24 Walter Nowak MD [address] [place] [address] Physician Clinical Cardiac Electrophysiology 03/01/25 Liset Márquez MD 606 [address] [facility] 300 [place] [address] flour distributor 03/13/25 Lauren Coronado, [facility] 909 [place], [place] [phone] Pharmacist Pharmacist 04/15/25 documented as of this encounter
--- OUTSIDE RECORDS SUMMARY | 2025-04-26 23:56 | XMS_ITS | Encounter Summary ---
Author Organization [facility] Address [address] [place] [address] Care Team Providers Care Shoe Repair Supervisor Name Role Phone Lita Oseguera Unavailable Unavailable Marija Edgar APRN DINKEY MECHANIC Primary Care Provider + Chanelle Mccann APRN CNM Unavailab le Kyara De La Fuente RN Unavailable [phone] Marija Edgar APRN DINKEY MECHANIC Unavailable Mynor Broussard MD Unavailable [phone] Keisha Dotson MD Unavailable Mary Mejia Unavailable Unavailable Stacey Briones PHOTOGRAPHER FINISH Unavailable [phone] Lesley Guillermo CHW Unavailable Mary Mejia Unavailable Unavailable Lita Oseguera Unavailable Unavailable Galo Burrell MD Unavailable Unavailable Cristina Wood Unavailable Lesley Guillermo CHW Unavailable Meredith Bedoya Unavailable Unavailable Cristina Wood Unavailable Diana Desir [facility] Unavailable Rain Galaviz PA-C Unavailable Summer Lara MD Unavailable [phone] Summer Lara MD Unavailable [phone] Summer Lara MD Unavailable [phone] Tavia Wyatt MD Unavailable [phone] Johnny Murillo MD Unavailable [phone] Erica Farrell APRN DINKEY MECHANIC Unavailable VikasTeresita [facility] Unavailable Tavia Wyatt MD Unavailable [phone] Diana Desir [facility] Unavailable [phone] Rich Barrett MD Unavailable [phone] Neli Kent MD Unavailable Roney Story [facility] Unavailable Erica Farrell APRN DINKEY MECHANIC Unavailable Diana Desir [facility] Unavailable [phone] Jelena David OD Unavailable Galo Burrell MD Unavailable Unavailable Livan Sharif MD Unavailable Livan Sharif MD Unavailable Catherine Cm MD Unavailable + Valery Veronica PA-C Unavailable [phone] Catherine Cm MD Unavailable + Johnny Murillo MD Unavailable [phone] Brea Quinn APRN DINKEY MECHANIC Unavailable [phone] Brea Quinn APRN DINKEY MECHANIC Unavailable [phone] Jose Francisco Johnson MD Unavailable Livan Sharif MD Unavailable Catherine Cm MD Unavailable + Sydnie Martinez RN Unavailable Unavailable Alfonso Renteria MD Unavailable [phone] Esha Grimm PA-C Primary Care Provider Cheng Todd PA-C Unavailable Radha Lomeli APRN DINKEY MECHANIC Unavailable Jelena David OD Unavailable Pao Joseph RN Unavailable Unavailable Esha Grimm PA-C Unavailable [phone] Valery Veronica PA-C Unavailable Rey Tay MD Unavailable Rocky Zepeda DO Unavailable Philip Duomnt MD Unavailable Meredtih Carrera PA-C Unavailable Neil Kent MD [...] Unavailable Liset Márquez MD Unavailable Cliff L [facility] Unavailable Encounter Details Date Type Department Care Team (Late st Contact Info) Description 07/17/2020 Alejandro Medical Advice [facility] [address], [address] [place] [address] Keisha Dotson MD [address] [place] [address] [phone] Social History Tobacco Use Types Packs/Day Years [...] PM CDT Legal Sex Female 4:13 AM PATHOLOGY LABORATORY DIRECTOR Gender Identity Female 03/02/2021 5:45 PM CDT Sexual Orientation Straight 02/28/2020 12 :51 AM CDT COVID-19 Exposure Response Date Recorded In the last month, have you been in contact with someone who was confirmed or suspected to have Coronavirus / COVID-19? No / Unsure 06/24/2020 3:01 PM PATHOLOGY LABORATORY DIRECTOR documented as of this encounter Miscellaneous [...] her shewouldn't need medication her whole life. OLOGY LABORATORY DIRECTOR documented in this encounter Plan of Treatment Upcoming Encounters Date Type Department Care Team (Late st Contact Info) Description 04/30/2025 10:30 AM CDT Office Visit [facility] [address], [address] [place] [address] Liset Márquez MD [address] [facility] 300 [place] [address] 05/30/2025 2:45 PM PATHOLOGY LABORATORY DIRECTOR Office Visit [facility] [address] [phone] Fabiano Correa, SEPARATOR INSERTER 6405 [place], [place] 855145 Walter Nowak MD 7584 [place], [place] 956275 08/07/2025 8:15 AM PATHOLOGY LABORATORY DIRECTOR Office Visit [facility] [address] [phone] Lucien Grimes MD [address] [phone] 08/21/2025 9:00 AM PATHOLOGY LABORATORY DIRECTOR Office Visit [facility] [address] [phone] Neil Kent MD [address] [place] [address] 10/09/2025 10:45 AM CDT Virtual Visit [facility] [address]th [place] [phone] Meredith Carrera PA-C [address] [place] [address] documented as of this encounter Visit Diagnoses Not on filedocumented in this encounter Additional Health Concerns Infection Onset Date Last Indicated Resolved Time Rule Out COVID-19 07/30/2020 07/30/2020 07/30/2020 7:11 PM PATHOLOGY LABORATORY DIRECTOR Rule Out COVID-19 08/30/2020 08/30/2020 08/30/2020 5:05 PM PATHOLOGY LABORATORY DIRECTOR Rule Out COVID-19 09/24/2020 09/24/2020 09/24/2020 9:24 AM CDT Rule Out COVID-19 11/05/2020 11/05/2020 11/06/2020 1:09 PM CDT Rule Out COVID-19 05/11/2021 05/11/2021 05/13/2021 10:18 AM CDT Rule Out COVID-19 07/13/2021 07/13/2021 07/14/2021 3:04 PM PATHOLOGY LABORATORY DIRECTOR Rule Out COVID-19 07/18/2021 07/18/2021 07/20/2021 1:56 PM PATHOLOGY LABORATORY DIRECTOR COVID-19 07/18/2021 07/18/2021 08/08/2021 11:3 9 PM PATHOLOGY LABORATORY DIRECTOR Rule Out COVID-19 12/18/2021 12/18/2021 12/19/2021 11:34 AM CDT Rule Out COVID-19 02/24/2022 02/24/2022 02/25/2022 1:08 PM CDT Rule Out COVID-19 04/26/2022 04/26/2022 04/26/2022 6:47 AM CDT Rule Out COVID-19 05/17/2022 05/17/2022 05/17/2022 10:20 PM PATHOLOGY LABORATORY DIRECTOR Rule Out COVID-19 06/09/2022 06/09/2022 06/09/2022 9:35 AM PATHOLOGY LABORATORY DIRECTOR COVID-19 06/09/2022 06/09/2022 06/30/2022 11:4 1 PM PATHOLOGY LABORATORY DIRECTOR Rule Out COVID-19 11/10/2022 11/10/2022 11/11/2022 [...] Total Score: 9 06/25/20 20 7:04 AM PATHOLOGY LABORATORY DIRECTOR documented as of this encounter Care Teams Shoe Repair Supervisor Relationship Specialty Start Date End Date Marija Edgar APRN DINKEY MECHANIC PCP - General Nurse Practitioner 04/30/20 04/14/23 Esha Grimm PA-C [address] [place] [phone] PCP - General Family Medicine 05/04/23 Lita Oseguera Personal Advocate & Liaison (PAL) 02/28/20 03/27/23 Chanelle Mccann APRN CNM [address], [address] [place] [address] Assigned OBGYN Provider 05/02/2005/09 Kyara De La Fuente, RN Specialty Gas Plant Dispatcher Neurology 06/04/20 03/05/21 Marija Edgar APRN CNP Assigned PCP 06/08/20 04/29/23 Mynor Broussard MD [address] [place] [address] Assigned Surgical Provider 06/01/20 11/28/21 Keisha Dotson MD [address] [place] [address] Assigned Neuroscience Provider 06/04/20 04/01/23 Mary Mejia Financial Resource Worker 08/07/20 08/21/20 Stacey Briones, [facility] Lead Gas Plant Dispatcher Primary Care - CC 08/11/20 12/30/20 Lesley Guillermo, W Community Health Worker 08/11/20 10/01/20 Mayr Mejia Financial Resource Worker 09/02/20 10/06/20 Lita Oseguera Personal Advocate & Liaison (PAL) Family Medicine 09/10/20 09/21/20 Galo Burrell MD Assigned Heart and Vascular Provider 10/05/20 04/02/22 Cristina Wood Financial Resource Worker 10/07/20 10/14/20 Lesley Guillermo, W Community Health Worker 10/23/20 12/30/20 Meredith Bedoya Financial Resource Worker 10/23/20 11/23/20 AilynCristina younger Financial Resource Worker 02/09/21 02/09/21 Diana Desir, [facility] [address] [facility] [place] [address] Pharmacist Pharmacist 04/17/21 Rain Galaviz PA-C [address] [place] [address] [place] [address] Physician Percussion Instrument Repairer Dermatology 04/28/21 Summer Lara MD [address] [place] [address] Assigned OBGYN Provider 05/10/2105/23 Summer Lara MD [address] [place], [place] 985314 Assigned OBGYN Provider 05/31/21 Summer Lara MD [address] [place] [address] Assigned OBGYN Provider 05/24/2105/30 Tavia Wyatt MD [address] [place], [place] 0[address] Dermatology 07/14/21 Johnny Murillo MD [address] [facility] [address] [place] [address] Assigned Musculoskeletal Provider 08/30/21 03/17/22 Erica Farrell APRN DINKEY MECHANIC 6[address] [facility] [address] [place], [place] 9[address]195 Nurse Practitioner Cardiovascular Disease 09/09/21 Teresita Bean [facility] [address] [place] [address] Pharmacist Pharmacist 09/24/21 09/29/21 Tavia Wyatt MD [address] [place] [address] Assigned Surgical Provider 11/29/21 05/07/22 Diana Desir, [facility] 3033 [place] [address] Assigned MTM Pharmacist 01/02/22 Rich Barrett MD 3033 [place], [place] 484566 Physician Ophthalmology 01/21/22 Neil Kent MD 500 [place] [address] Dermatology 02/24/22 [place] [address] [facility] 300 [place] [address] Assigned Musculoskeletal Provider 03/20/22 08/13/22 Erica Farrell APRN DINKEY MECHANIC 1700 [place] [address] Assigned Heart and Vascular Provider 04/03/22 04/16/22 Diana Desir [facility] [address] [place] [address] Assigned MTM Pharmacist 04/07/[address] [facility] [place] [address] Assigned Surgical Provider 05/08/22 10/08/22 Galo Burrell MD Assigned Heart and Vascular Provider 04/17/22 06/11/22 Livan Sharif MD [address] [place] 482355 Cardiovascular Disease 05/14/22 Livan Sharif MD [address] [place] 8[address] Assigned Heart and Vascular Provider 06/12/22 07/23/22 Catherine Cm MD [address] [place] 909075 Cardiovascular Disease 07/21/22 Valery Veronica, PA-C 909 [place], [place] 405165 Physician Percussion Instrument Repairer Dermatology 07/21/22 Catherine Cm MD [address] [place] 034285 Assigned Heart and Vascular Provider 07/24/22 11/05/22 Johnny Murillo MD [address] [address] Assigned Musculoskeletal Provider 08/14/22 10/08/22 Brea Quinn APRN DINKEY MECHANIC 500 [place] [address] Nurse Practitioner Dermatology 09/21/22 Brea Quinn APRN DINKEY MECHANIC 6401 [place] [address] Assigned Surgical Provider 10/09/22 05/01/24 [place] [address] [facility] 300 [place] [address] Assigned Musculoskeletal Provider 10/09/22 05/01/24 Livan Sharif MD 6405 [facility] [address] [place] [address] Assigned Heart and Vascular Provider 11/06/22 11/12/22 Catherine Cm MD 6405 [facility] [address] [place] [address] Assigned Heart and Vascular Provider 11/13/22 05/27/23 Sydnie Martinez RN Personal Advocate & Liaison (PAL) Family Medicine 03/28/23 07/31/23 Alfonso Renteria MD 5775 [facility] 200 [place], [place] 188596 Assigned Neuroscience Provider 04/02/23 09/29/24 Cheng Todd PA-C [address] [place] [address] [id number] Assigned PCP 04/30/23 07/15/23 Radha Lomeli APRN DINKEY MECHANIC 6[address] [facility] [address] [place] [address] Assigned Heart and Vascular Provider 05/28/23 11/29/24 Jelena David OD [address] [facility] [place] [address] Ophthalmology 06/15/23 Pao Joseph, VJ Personal Advocate & Liaison (PAL) Nurse 08/01/23 11/07/23 Esha Grimm PA-C [address] [place] [phone] Assigned PCP 07/16/23 Valery Veronica PA-C [address] [place] [address] 651915 Physician Percussion Instrument Repairer Dermatology 09/19/23 Rey Tay MD [address] [place] [address] 542025 Gastroenterology 09/20/23 Rocky Zepeda DO [address] [place] [address] 622205 Physician Gastroenterology 09/20/23 Philip Dumont MD [address] [place] [address] 517465 Physician Ophthalmology 09/22/23 Meredith Carrera PA-C [address] [place] [address] Assigned Gastroenterology Provider 11/01/23 Neil Kent MD [address] [place] [address] MD Dermatology 11/02/23 [place] [address] [place] [address] Neurological Surgery 12/26/23 Audrey Waite PA-C 500 [place] [address] Physician Percussion Instrument Repairer Dermatology 02/28/24 Valery Veronica PA-C [address]40 [address] [place] [address] Physician Percussion Instrument Repairer Dermatology 04/10/24 Herminia Hatch MD [address] [place] [address] [phone] Assigned Rheumatology Provider 07/02/24 Jelena David OD [address] [place] [address] [place] [address] Ophthalmology 08/30/24 [place] [address] [place] [address] Assigned Neuroscience Provider 09/30/24 Maru Man PA-C [address] [place] [address] Physician Percussion Instrument Repairer Dermatology 10/03/24 Maru Man PA-C [address] [place] [address] Physician Percussion Instrument Repairer Dermatology 10/22/24 Jelena David OD [address] [facility] [place] [address] Assigned Surgical Provider 10/31/24 Fabiano Correa NP [address] [place] 930135 Assigned Heart and Vascular Provider 11/30/24 Walter Nowak MD [address] [place] 981235 Physician Clinical Cardiac Electrophysiology 03/01/25 Liset Márquez MD [address] 637854 blow up operator 03/13/25 Lauren Coronado, [facility] 909 [place], [place] 957985 Pharmacist Pharmacist 04/15/25 documented as of this encounter
--- OUTSIDE RECORDS SUMMARY | 2025-04-26 23:56 | XMS_ITS | Encounter Summary ---
Author Organization [facility] Address [address] [place] [address] Care Team Providers Care Video Camera Operator Name Role Phone Diana Desir [facility] Unavailable Rain Galaviz PA-C Unavailable Tavia Wyatt MD Unavailable [phone] Erica Farrell APRN HARVESTING MANAGER Unavailable Rich Barrett MD Unavailable [phone] Neil Kent MD Unavailable Diana Desir [facility] Unavailable Livan Sharif MD Unavailable Catherine Cm MD Unavailable + Valery Veronica PA-C Unavailable Brea Quinn GOLF CART ATTENDANT HARVESTING MANAGER Unavailable Brea Quinn GOLF CART ATTENDANT HARVESTING MANAGER Unavailable [phone] Jose Francisco Johnson MD Unavailable Alfonso Renteria MD Unavailable [phone] Esha Grimm PA-C Primary Care Provider Lomeli, Radha E GOLF CART ATTENDANT HARVESTING MANAGER Unavailable Jelena David OD Unavailable [phone] Pao Joseph RN Unavailable Unavailable Esha Grimm Adam PA-C Unavailable [phone] Valery Veronica PA-C Unavailable Rey Tay MD Unavailable Rocky Zepeda DO Unavailable Philip Dumont MD Unavailable [phone] Meredith Carrera PA-C Unavailable Neil Kent [...] MD Unavailable Lauren Coronado [facility] Unavailable Encounter Details Date Type Department Care Team (Late st Contact Info) Description 10/26/2023 [facility] [address] [place] [address] [facility] Social History Tobacco [...] 0 10/25/2023 [facility] - Occupational [...] CDT Legal Sex Female 4:13 AM OPERATIONS TECHNICIAN Gender Identity Female 03/02/2021 5:45 PM CDT Sexual Orientation Straight 02/28/2020 12 :51 AM CDT documented as of this encounter Plan of Treatment Upcoming Encounters Date Type Department Care Team (Late st Contact Info) Description 04/30/2025 10:30 AM CDT Office Visit [facility] [place] [address], [address] [place] [address] Liset Márquez MD [address] [address] 05/30/2025 2:45 PM OPERATIONS TECHNICIAN Office Visit [facility] [address] [phone] Fabiano Correa, DIRECTOR OF CARDIAC REHABILITATION 6405 [place], [place] 148845 Walter Nowak MD 0654 [place], [place] 958025 08/07/2025 8:15 AM OPERATIONS TECHNICIAN Office Visit [facility] [address] [phone] Lucien Grimes MD [address] 471325 08/21/2025 9:00 AM OPERATIONS TECHNICIAN Office Visit [address] [phone] Neil Kent MD [address] [place] [address] [phone] 10/09/2025 10:45 AM CDT Virtual Visit [facility] Gastroenterology [address] 4th [place] [phone] Meredith Carrera PAUcheC [address] [place] [address] 056945 documented as of this encounter Visit Diagnoses [...] Total Score: 4 06/20/20 23 8:40 AM OPERATIONS TECHNICIAN documented as of this encounter Care Teams Video Camera Operator Relationship Specialty Start Date End Date Esha Grimm PA-C [address] [place] [address] PCP - General Family Medicine 05/04/23 Diana Desir, [facility] 3033 [place], [place] 734706 Pharmacist Pharmacist 04/17/21 Rain Galaviz PA-C [address] [place] [address] [place] [address] Physician Personal Service Representative Dermatology 04/28/21 Tavia Wyatt MD [address] [place] [address] [place] [phone] Dermatology 07/14/21 Erica Farrell APRN HARVESTING MANAGER [address] [place] [phone] [place] [address]35 Nurse Practitioner Cardiovascular Disease 09/09/21 Rich Barrett MD [address] [place] [address]85 Physician Ophthalmology 01/21/22 Neil Kent MD 500 [place], [place] 424625 Dermatology 02/24/22 Diana Desir, [facility] 3033 [place], [place] 909596 Assigned [facility] Pharmacist 04/07/22 Livan Sharif MD [address] [place] [address] Cardiovascular Disease 05/14/22 Catherine Cm MD [address] [facility] [address] [address] Cardiovascular Disease 07/21/22 Valery Veronica, PA-C 909 [place], [place] 0[address]65 Physician Personal Service Representative Dermatology 07/21/22 Brea Quinn APRN HARVESTING MANAGER 500 [place], [place] 813315 Nurse Practitioner Dermatology 09/21/22 Brea Quinn APRN HARVESTING MANAGER [address] [place] [address] [place] 223232 Assigned Surgical Provider 10/09/22 05/01/24 [place] [address] [address] [facility] 300 [place] [address] Assigned Musculoskeletal Provider 10/09/22 05/01/24 Alfonso Renteria MD 5775 [facility] 200 [place], [place] 815156 Assigned Neuroscience Provider 04/02/23 09/29/24 Radha Lomeli APRN HARVESTING MANAGER 6405 [facility] [address] [place] [address] Assigned Heart and Vascular Provider 05/28/23 11/29/24 Jelena David OD [address] [facility] [place] [address] Ophthalmology 06/15/23 Pao Joseph, VJ Personal Advocate & Liaison (PAL) Nurse 08/01/23 11/07/23 Esha Grimm PA-C [address] [place] [phone] Assigned PCP 07/16/23 Valery Veronica PA-C [address] [place] [address] 067355 Physician Personal Service Representative Dermatology 09/19/23 Rey Tay MD [address] [place] [address] 969745 Gastroenterology 09/20/23 Rocky Zepeda DO [address] [place] [address] Physician Gastroenterology 09/20/23 Philip Dumont MD [address] [place] [address] Physician Ophthalmology 09/22/23 Meredith Carrera PA-C [address] [place] [address] Assigned Gastroenterology Provider 11/01/23 Neil Kent MD [address] [place] [address] MD Dermatology 11/02/23 [place] [address] [place] [address] Neurological Surgery 12/26/23 Audrey Waite PA-C [address] [place] [address] Physician Personal Service Representative Dermatology 02/28/24 Valery Veronica PA-C [id number] [address] [place] [address] Physician Personal Service Representative Dermatology 04/10/24 Herminia Hatch MD [facility]5 [place], [place] 09542125 Assigned Rheumatology Provider 07/02/24 Jelena David OD [address] [facility] [place] [address] Ophthalmology 08/30/24 [place] [address] [address] [facility] 300 [place] [address] Assigned Neuroscience Provider 09/30/24 Maru Man PA-C [address] [place] [address] Physician Personal Service Representative Dermatology 10/03/24 Maru Man PA-C [address] [place] [address] 790980 Physician Personal Service Representative Dermatology 10/22/24 Jelena David OD [address] [facility] [place] [address] Assigned Surgical Provider 10/31/24 Fabiano Correa, DIRECTOR OF CARDIAC REHABILITATION [address] [place] [place] 99[address]35 Assigned Heart and Vascular Provider 11/30/24 Walter Nowak MD [address] [place] [address] Physician Clinical Cardiac Electrophysiology 03/01/25 Liset Márquez MD [address] [facility] 300 [place] [address] coiled coil inspector 03/13/25 Lauren Coronado, [facility] 909 [place], [place] 550835 Pharmacist Pharmacist 04/15/25 documented as of this encounter
--- OUTSIDE RECORDS SUMMARY | 2025-04-26 23:56 | XMS_ITS | Encounter Summary ---
Author Organization [facility] Address [address] [place] [address] Care Team Providers Care Raw Stock Machine Feeder Name Role Phone Diana Desir [facility] Unavailable Rain Galaviz PA-C Unavailable Tavia Wyatt MD Unavailable [phone] Erica Farrell APRN PLANNING LEAD Unavailable Rich Barrett MD Unavailable [phone] Neil Kent MD Unavailable Diana Desir [facility] Unavailable Livan Sharif MD Unavailable Catherine Cm MD Unavailable + Valery Veronica PA-C Unavailable Brea Quinn RESIN SHAVER PLANNING LEAD Unavailable Brea Quinn RESIN SHAVER PLANNING LEAD Unavailable [phone] Jose Francisco Johnson MD Unavailable Alfonso Renteria MD Unavailable [phone] Esha Grimm PA-C Primary Care Provider Lomeli, Radha E RESIN SHAVER PLANNING LEAD Unavailable Jelena David OD Unavailable [phone] Pao Joseph RN Unavailable Unavailable Esha Grimm Adam PA-C Unavailable [phone] Valery Veronica PA-C Unavailable Rey Tay [...] Márquez MD Unavailable Lauren Coronado [facility] Unavailable Encounter Details Date Type Department Care Team (Late st Contact Info) Description 10/25/2023 [facility] Adv[facility] [address]th [place] [address] [place] Social History Tobacco [...] 0 10/25/2023 [facility] - Occupational Stress Questionnaire [...] PM CDT Legal Sex Female 4:13 AM TELECOM COORDINATOR Gender Identity Female 03/02/2021 5:45 PM CDT Sexual Orientation Straight 02/28/2020 12 :51 AM CDT documented as of this encounter Plan of Treatment Upcoming Encounters Date Type Department Care Team (Late st Contact Info) Description 04/30/2025 10:30 AM CDT Office Visit [facility] [place] [address], [address], [address] [place] [address] Liset Márquez MD [address] [address] 05/30/2025 2:45 PM TELECOM COORDINATOR Office Visit [facility] [address] [phone] Fabiano Correa, SENIOR SQL DATABASE DEVELOPER 6405 [place], [place] 331265 Walter Nowak MD 1798 [place], [place] 593355 08/07/2025 8:15 AM TELECOM COORDINATOR Office Visit [facility] [address] [phone] Lucien Grimes MD [address] 075925 08/21/2025 9:00 AM TELECOM COORDINATOR Office Visit [address] [phone] Neil Kent MD [address] [place] [address] [id number] 10/09/2025 10:45 AM CDT Virtual Visit [facility] Gastroenterology [address] 4th [place] [phone] Meredith Carrera PAUcheC [address] [place] [address] 374145 documented as of this encounter Visit Diagnoses [...] Total Score: 4 06/20/20 23 8:40 AM TELECOM COORDINATOR documented as of this encounter Care Teams Raw Stock Machine Feeder Relationship Specialty Start Date End Date Esha Grimm PA-C [address] [place] [phone] PCP - General Family Medicine 05/04/23 Diana Desir, [facility] 3033 [place], [place] 187526 Pharmacist Pharmacist 04/17/21 Rain Galaviz PA-C [address] [place] [address] [place] [address] Physician Drywall Sprayer Dermatology 04/28/21 Tavia Wyatt MD [address] [place] [address] [place] [phone] Dermatology 07/14/21 Erica Farrell APRN PLANNING LEAD [address] [place] 4708000 [place] 252165 Nurse Practitioner Cardiovascular Disease 09/09/21 Rich Barrett MD [address] [place] 867385 Physician Ophthalmology 01/21/22 Neil Kent MD 500 [place], [place] 469165 Dermatology 02/24/22 Diana Desir, [facility] 3033 [place], [place] 295866 Assigned [facility] Pharmacist 04/07/22 Livan Sharif MD [address] [place] [address] Cardiovascular Disease 05/14/22 Catherine Cm MD 6405 [facility] [address] 499385 Cardiovascular Disease 07/21/22 Valery Veronica, PA-C 909 [place], [place] 138125 Physician Drywall Sprayer Dermatology 07/21/22 Brea Quinn APRN PLANNING LEAD 500 [place], [place] 028795 Nurse Practitioner Dermatology 09/21/22 Brea Quinn APRN PLANNING LEAD [address] [place] [address] [place] 852652 Assigned Surgical Provider 10/09/22 05/01/24 [place] [address] [address] [facility] 300 [place] [address] Assigned Musculoskeletal Provider 10/09/22 05/01/24 Alfonso Renteria MD 5775 [facility] 200 [place], [place] 889826 Assigned Neuroscience Provider 04/02/23 09/29/24 Radha Lomeli APRN PLANNING LEAD 6405 [facility] [address] [address] [place] [address] Assigned Heart and Vascular Provider 05/28/23 11/29/24 Jelena David OD [address] [place] [address] Ophthalmology 06/15/23 Pao Joseph, VJ Personal Advocate & Liaison (PAL) Nurse 08/01/23 11/07/23 Esha Grimm PA-C [address] [place] [phone] Assigned PCP 07/16/23 Valery Veronica PA-C [address] [place] [address] 346855 Physician Drywall Sprayer Dermatology 09/19/23 Rey Tay MD [address] [place] [address] [phone] Gastroenterology 09/20/23 Rocky Zepeda DO [address] [place] [address] Physician Gastroenterology 09/20/23 Philip Dumont MD [address] [place] [address] Physician Ophthalmology 09/22/23 Meredith Carrera PA-C [address] [place] [address] Assigned Gastroenterology Provider 11/01/23 Neil Kent MD [address] [place] [address] MD Dermatology 11/02/23 [place] [address] [place] [address] Neurological Surgery 12/26/23 Audrey Waite PA-C [address] [place] [address] Physician Drywall Sprayer Dermatology 02/28/24 Valery Veronica PA-C [address]01 [address] [place] [address] Physician Drywall Sprayer Dermatology 04/10/24 Herminia Hatch MD [facility]5 [place], [place] [phone] Assigned Rheumatology Provider 07/02/24 Jelena David OD [address] [place] [address] Ophthalmology 08/30/24 [place] [address] [address] [facility] 300 [place] [address] Assigned Neuroscience Provider 09/30/24 Maru Man PA-C [address] [place] [address] Physician Drywall Sprayer Dermatology 10/03/24 Maru Man PA-C [address] [place] [address] 755420 Physician Drywall Sprayer Dermatology 10/22/24 Jelena David OD [address] [place] [address] Assigned Surgical Provider 10/31/24 Fabiano Correa, SENIOR SQL DATABASE DEVELOPER [address] [place] [place] 271575 Assigned Heart and Vascular Provider 11/30/24 Walter Nowak MD [address] [place] [address] Physician Clinical Cardiac Electrophysiology 03/01/25 Liset Márquez MD [address] [facility] 300 [place] [address] manager of procurement 03/13/25 Lauren Coronado, [facility] 909 [place], [place] 370755 Pharmacist Pharmacist 04/15/25 documented as of this encounter
--- OUTSIDE RECORDS SUMMARY | 2025-04-26 23:56 | XMS_ITS | Encounter Summary ---
Author Organization [facility] Address [address] [place] [address] Care Team Providers Care Television Presenter Name Role Phone Lita Oseguera Unavailable Unavailable Marija Edgar APRN PREPARER Primary Care Provider + Marija Edgar APRN PREPARER Unavailable [phone] Keisha Dotson MD Unavailable Diana Desir [facility] Unavailable Rain Galaviz PA-C Unavailable [phone] Tavia Wyatt MD Unavailable Erica Farrell APRN PREPARER Unavailable Rich Barrett MD Unavailable [phone] Neil Kent MD Unavailable Diana Desir [facility] Unavailable Livan Sharif MD Unavailable Catherine Cm MD Unavailable + Valery Veronica PA-C Unavailable [phone] Brea Quinn FOOD AND BEVERAGE CONTROLLER PREPARER Unavailable [phone] Brea Quinn FOOD AND BEVERAGE CONTROLLER PREPARER Unavailable [phone] Jose Francisco Johnson MD Unavailable Cathernie Cm MD Unavailable + Sydnie Martinez RN Unavailable Unavailable Alfonso Renteria MD Unavailable [phone] Esha Grimm PA-C Primary Care Provider Cheng Todd PA-C Unavailable Armani Radha Stovall ARLENE PREPARER Unavailable Jelena David OD Unavailable Pao Joseph RN Unavailable Unavailable Esha Grimm PA-C Unavailable [phone] Valery Veronica PA-C Unavailable Rey Tay [...] Unavailable Liset Márquez MD Unavailable Lauren Coronado [facility] Unavailable [phone] Encounter Details Date Type Department Care Team (Late st Contact Info) Description 12/23/2022 [facility] Medical Advice [facility] [address] [place] [phone] Lauren Claudio, PA-C [address] [place] [address] Social History Tobacco Use Types [...] How often do you attend congregational or anabaptist serv ices? Never 09/22/2021 Do [...] a skilled nursing (including now)? No 09/22/2021 [place] Depression Scale Answer Date Recorded [place] Depression Score 5 01/14/2021 Last EPDS Self Harm Result Not on file 01/14 Education Answer Date Recorded What is the highest level of school you have completed or the highest degree you have received? 12th grade 08/07/2020 Comments No Sex and Gender Information Value Date Recorded Sex Assigned at Female 03/02/2021 5:45 PM CDT Legal Sex Female 4:13 AM LABOR TRAINER Gender Identity Female 03/02/2021 5:45 PM [...] Description 04/30/2025 10:30 AM CDT Office Visit [facility] [place] [address], [address] [place] [address] Liset Márquez MD [address] [address] 05/30/2025 2:45 PM LABOR TRAINER Office Visit [facility] 6405 [facility] [address] [place] [phone] Fabiano Correa, BRYCE 6403 [facility] [place] 571485 Walter Nowak MD 9842 [place], [place] 550865 08/07/2025 8:15 AM LABOR TRAINER Office Visit [facility] [address] [place] [address] [place] [phone] Lucien Grimes MD [address] [place] [address] 08/21/2025 9:00 AM LABOR TRAINER Office Visit [facility] [address] [phone] Neil Kent MD 500 [place] [address] 10/09/2025 10:45 AM CDT Virtual Visit [facility] [place] 909 [facility] 4th [place] [phone] Meredith Carrera PAUcheC [address] [place] [address] documented as of this encounter Visit Diagnoses [...] as of this encounter Care Teams Television Presenter Relationship Specialty Start Date End Date Marija Edgra APRN PREPARER PCP - General Nurse Practitioner 04/30/20 04/14/23 Esha Grimm PA-C 10[address] [place] [address] PCP - General Family Medicine 05/04/23 Lita Oseguera Personal Advocate & Liaison (PAL) 02/28/20 03/27/23 Marija Edgar APRN PREPARER Assigned PCP 06/08/20 04/29/23 Keisha Dotson MD 9 [place] [address] Assigned Neuroscience Provider 06/04/20 04/01/23 Diana Desir, [facility] 3033 [place] [address] Pharmacist Pharmacist 04/17/21 Rain Galaviz PA-C [address] [place] [address] [address] [facility] [address] Physician Academic Hospitalist Dermatology 04/28/21 Tavia Wyatt MD [address] [place] [address] [place] [address] Dermatology 07/14/21 Erica Farrell APRN PREPARER [address] [place] 332215 Nurse Practitioner Cardiovascular Disease 09/09/21 Rich Barrett MD [address] [place] 490865 Physician Ophthalmology 01/21/22 Neil Kent MD 500 [place], [place] 254705 Dermatology 02/24/22 [facility] 3033 [place], [place] 65[address] [facility] Pharmacist 04/07/22 Livan Sharif MD [address] [place] [address] [place] [address] Cardiovascular Disease 05/14/22 Catherine Cm MD [address] [place] 9[address]105 Cardiovascular Disease 07/21/22 Valery Veronica, PA-C [address] [place] [address] Physician Academic Hospitalist Dermatology 07/21/22 Brea Quinn APRN PREPARER 500 [place], [place] 033525 Nurse Practitioner Dermatology 09/21/22 Brea Quinn APRN PREPARER [address] [place] [address] [place] 725191 [phone] Assigned Surgical Provider 10/09/22 05/01/24 [place] [address] [place] [address] Assigned Musculoskeletal Provider 10/09/22 05/01/24 Catherine Cm MD [address] [facility] [address] [place] [address] Assigned Heart and Vascular Provider 11/13/22 05/27/23 Sydnie Martinez RN Personal Advocate & Liaison (PAL) Family Medicine 03/28/23 07/31/23 Alfonso Renteria MD 5775 [facility] 200 [place] [address] Assigned Neuroscience Provider 04/02/23 09/29/24 Cheng Todd PA-C [address] [place] [address] [id number] Assigned PCP 04/30/23 07/15/23 Radha Lomeli APRN PREPARER [address] [place] [address] Assigned Heart and Vascular Provider 05/28/23 11/29/24 Jelena David OD 3305 [facility] [place] [address] Ophthalmology 06/15/23 Pao Joseph, VJ Personal Advocate & Liaison (PAL) Nurse 08/01/23 11/07/23 Esha Grimm PA-C [address] [place] [address]207[address] Assigned PCP 07/16/23 Valery Veronica PA-C [address] [place] [address] Physician Academic Hospitalist Dermatology 09/19/23 Rey Tay MD [address] [place] [address] MD Gastroenterology 09/20/23 Rocky Zepeda DO [address] [place] [address] Physician Gastroenterology 09/20/23 Philip Dumont MD [address] [place] [address] Physician Ophthalmology 09/22/23 Meredith Carrera PA-C [address] [place] [address] Assigned Gastroenterology Provider 11/01/23 Neil Kent MD [address] [place] [address] Dermatology 11/02/23 [place] [address] [place] 332737 Neurological Surgery 12/26/23 Audrey Waite PA-C [address] [place] [address] 488875 Physician Academic Hospitalist Dermatology 02/28/24 Valery Veronica PA-C [address] [facility] [place] [address] Physician Academic Hospitalist Dermatology 04/10/24 Herminia Hatch MD [address] [place] [address] [id number] Assigned Rheumatology Provider 07/02/24 Jelena David, OD [address] [place] [address] [place] [address] Ophthalmology 08/30/24 [place] [address] [place] [address] Assigned Neuroscience Provider 09/30/24 Maru Man PA-C [address] [place] [address] Physician Academic Hospitalist Dermatology 10/03/24 Maru Man PA-C [address] [place] [address] Physician Academic Hospitalist Dermatology 10/22/24 Jelena David, SONJA [facility] [facility] [place] [address] Assigned Surgical Provider 10/31/24 Fabiano Correa, FURNACE MECHANIC HELPER 6405 [place] [address] Assigned Heart and Vascular Provider 11/30/24 Walter Nowak MD 6405 [facility] [place] [address] Physician Clinical Cardiac Electrophysiology 03/01/25 Liset Márquez MD [address] [place] [address] glost tile shader 03/13/25 Lauren Coronado, [facility] 909 [place] [address] Pharmacist Pharmacist 04/15/25 documented as of this encounter
--- OUTSIDE RECORDS SUMMARY | 2025-04-26 23:56 | XMS_ITS | Encounter Summary ---
Author Organization [place] Address [address] [place] [address] Care Team Providers Care Cardiac Cath Lab Manager Name Role Phone Diana Desir [facility] Unavailable Rain Galaviz PA-C Unavailable Tavia Wyatt MD Unavailable [phone] Erica Farrell APRN MATH TEACHER Unavailable Rich Barrett MD Unavailable [phone] Neil Kent MD Unavailable Diana Desir [facility] Unavailable Livan Sharif MD Unavailable Catherine Cm MD Unavailable + Valery Veronica PA-C Unavailable Brea Quinn ASP DEVELOPER MATH TEACHER Unavailable Brea Quinn ASP DEVELOPER MATH TEACHER Unavailable Jose Francisco Johnson MD Unavailable Alfonso Renteria MD Unavailable [phone] Esha Grimm PA-C Primary Care Provider Lomeli, Radha E ASP DEVELOPER MATH TEACHER Unavailable Jelena David OD Unavailable [phone] Esha Grimm PA-C Unavailable [phone] Valery Veronica PA-C Unavailable Rey Tay [...] Unavailable Liset Márquez MD Unavailable Lauren Coronado [facility] Unavailable [phone] Encounter Details Date Type Department Care Team (Late st Contact Info) Description 11/21/2023 Alejandro Medical Advice [facility] [address] 4th [place] [address] Sofia Alcantar Social History Tobacco [...] you attend formerly [facility] or evangelical services? 1 to 4 [...] exercise at this level? 30 min 03/10/2023 Percival Depression Scale Answer Date Recorded Percival Depression Score 5 01/14/2021 Last EPDS Self [...] CDT Legal Sex Female 4:13 AM AUDITING CONTROL CLERK Gender Identity Female 03/02/2021 5:45 PM CDT Sexual Orientation Straight 02/28/2020 12 :51 AM CDT documented as of this encounter Plan of Treatment Upcoming Encounters Date Type Department Care Team (Late st Contact Info) Description 04/30/2025 10:30 AM CDT Office Visit [facility] [place] [address] 3rd Flr, [address] [place] [phone] Liset Márquez MD [address] [address] 05/30/2025 2:45 PM AUDITING CONTROL CLERK Office Visit [facility] [address] [place] [phone] Fabiano Correa, EDUCATION FACULTY MEMBER 6405 [place], [place] 463685 Walter Nowak MD 2778 [place], [place] 996095 08/07/2025 8:15 AM AUDITING CONTROL CLERK Office Visit [facility] [address] [phone] Lucien Grimes MD [address] 708945 08/21/2025 9:00 AM AUDITING CONTROL CLERK Office Visit [facility] [address] [phone] Neil Kent MD [address] [place] [address] 914355 10/09/2025 10:45 AM CDT Virtual Visit [facility] [address] 4th [place] [address] Meredith Carrera PA-C [address] [place] [address] 282745 documented as of this encounter Visit Diagnoses [...] Depression Total Score: 4 06/20/20 8:40 AM AUDITING CONTROL CLERK documented as of this encounter Care Teams Cardiac Cath Lab Manager Relationship Specialty Start Date End Date Esha Grimm PA-C [address] [place] [phone] PCP - General Family Medicine 05/04/23 Diana Desir, [facility] [address] [place], [place] 227146 Pharmacist Pharmacist 04/17/21 Rain Galaviz PA-C [address] [place] [address] [address] [facility] [facility] [place] [address] Physician Prototyper Dermatology 04/28/21 Tavia Wyatt MD [address] [place] [address] [place] [id number] Dermatology 07/14/21 Erica Farrell APRN MATH TEACHER [address] [place] 8335700 [place], [place] 777175 Nurse Practitioner Cardiovascular Disease 09/09/21 Rich Barrett MD [address] [place], [place] 058075 Physician Ophthalmology 01/21/22 Neil Kent MD 500 [place], [place] 187625 Dermatology 02/24/22 Diana Desir, [facility] 3033 [place], [place] 857696 Assigned [place] Pharmacist 04/07/22 Livan Sharif MD [address] [place] [address] Cardiovascular Disease 05/14/22 Catherine Cm MD 6405 [facility] [address] 399865 Cardiovascular Disease 07/21/22 Valery Veronica, PA-C 909 [place], [place] 339505 Physician Prototyper Dermatology 07/21/22 Brea Quinn APRN MATH TEACHER 500 [place], [place] 149865 Nurse Practitioner Dermatology 09/21/22 Brea Quinn APRN MATH TEACHER 6401 [facility] [place], [place] 079942 Assigned Surgical Provider 10/09/22 05/01/24 [place] [address] [address] [place] [address] Assigned Musculoskeletal Provider 10/09/22 05/01/24 Alfonso Renteria MD [address] [facility] 200 [place], [place] 981606 Assigned Neuroscience Provider 04/02/23 09/29/24 Radha Lomeli, ARLENE MATH TEACHER 6405 [facility] [address] [place] 436385 Assigned Heart and Vascular Provider 05/28/23 11/29/24 Jelena David OD [address] [facility] [address] [place] [id number] MD Ophthalmology 06/15/23 Esha Grimm PA-C [address] [place] [phone] Assigned PCP 07/16/23 Valery Veronica PA-C [address] [place] [address] 740595 Physician Prototyper Dermatology 09/19/23 Rey Tay MD [address] [place] [address] 545085 Gastroenterology 09/20/23 Rocky Zepeda DO [address] [place] [address] 057435 Physician Gastroenterology 09/20/23 Philip Dumont MD 516 [place] [address] Physician Ophthalmology 09/22/23 Meredith Carrera PA-C [address] [place] [address] Assigned Gastroenterology Provider 11/01/23 Neil Kent MD [address] [address] Dermatology 11/02/23 [place] [address] [place], [place] 0908[address] Neurological Surgery 12/26/23 Audrey Waite PA-C 500 [place] [address] Physician Prototyper Dermatology 02/28/24 Valery Veronica PA-C 045276 [address] [address] Physician Prototyper Dermatology 04/10/24 Herminia Hatch MD [address] [place] [address] [id number] Assigned Rheumatology Provider 07/02/24 Jelena David [place] [address] [place] [address] [place] [address] Ophthalmology 08/30/24 [place] [address] [place] [address] Assigned Neuroscience Provider 09/30/24 Maru Man PA-C [address] [place] [address] Physician Prototyper Dermatology 10/03/24 Maru Man PA-C [address] [place] [address] Physician Prototyper Dermatology 10/22/24 Jelena David OD [address] [facility] [place] [address] Assigned Surgical Provider 10/31/24 Fabiano Correa NP [address] [place] [address] Assigned Heart and Vascular Provider 11/30/24 Walter Nowak MD [address] [place] [address] Physician Clinical Cardiac Electrophysiology 03/01/25 Liset Márquez MD 606 24[facility] 300 [place] [address] tests superintendent 03/13/25 Lauren Coronado, [facility] 909 [place], [place] [phone] Pharmacist Pharmacist 04/15/25 documented as of this encounter
--- OUTSIDE RECORDS SUMMARY | 2025-04-26 23:56 | XMS_ITS | Encounter Summary ---
Author Organization [facility] Address [address] [place] [address] Care Team Providers Care Cattle Driver Name Role Phone Lita Oseguera Unavailable Unavailable Marija Edgar APRN MOLD CLOSER Primary Care Provider + Chanelle Mccann APRN CNM Unavailab le Kyara De La Fuente RN Unavailable [phone] Marija Edgar APRN MOLD CLOSER Unavailable [phone] Mynor Broussard MD Unavailable [phone] Keisha Dotson MD Unavailable Mary Mejia Unavailable Unavailable Stacey Briones ENTERPRISE ARCHITECT Unavailable [phone] Lesley Guillermo CHW Unavailable Mary Mejia Unavailable Unavailable Lita Oseguera Unavailable Unavailable Galo Burrell MD Unavailable Unavailable Cristina Wood Unavailable Lesley Guillermo CHW Unavailable Meredith Bedoya Unavailable Unavailable Cristina Wood Unavailable Diana Desir [facility] Unavailable [phone] Rain Galaviz PA-C Unavailable Summer Lara MD Unavailable [phone] Summer Lara MD Unavailable [phone] Summer Lara MD Unavailable [phone] Tavia Wyatt MD Unavailable [phone] Johnny Murillo MD Unavailable [phone] Erica Farrell APRN MOLD CLOSER Unavailable VikasTeresita [facility] Unavailable Tavia Wyatt MD Unavailable [phone] Diana Desir [facility] Unavailable [phone] Rich Barrett MD Unavailable [phone] Neil Kent MD Unavailable Roney Story [facility] Unavailable Erica Farrell APRN MOLD CLOSER Unavailable Diana Desir [facility] Unavailable [phone] Jelena David OD Unavailable Galo Burrell MD Unavailable Unavailable Livan Sharif MD Unavailable Livan Sharif MD Unavailable Catherine Cm MD Unavailable + Valery Veronica PA-C Unavailable [phone] Catherine Cm MD Unavailable + Johnny Murillo MD Unavailable [phone] Brea Quinn APRN MOLD CLOSER Unavailable [phone] Brea Quinn APRN MOLD CLOSER Unavailable [phone] Jose Francisco Johnson MD Unavailable Livan Sharif MD Unavailable Catherine Cm MD Unavailable + Sydnie Martinez RN Unavailable Unavailable Alfonso Renteria MD Unavailable [phone] Esha Grimm PA-C Primary Care Provider Cheng Todd PA-C Unavailable Radha Lomeli APRN MOLD CLOSER Unavailable Jelena David OD Unavailable Pao Joseph RN Unavailable Unavailable Esha Grimm PA-C Unavailable [phone] Valery Veronica PA-C Unavailable Rey Tay [...] Unavailable Liset Márquez MD Unavailable Lauren Coronado [facility] Unavailable [phone] Encounter Details Date Type Department Care Team (Latest Contact Info) Description 07/29/2020 MyC Medical Advice [address] [phone] Marija Edgar APRN MOLD CLOSER [address] [facility] [place] [address] Palpitations (Primary Dx) Social History Tobacco [...] PM CDT Legal Sex Female 4:13 AM GROVE SUPERINTENDENT Gender Identity Female 03/02/2021 5:45 PM CDT Sexual Orientation Straight 02/28/2020 12 :51 AM CDT COVID-19 Exposure Response Date Recorded In the last month, have you been in contact with someone who was confirmed or suspected to have Coronavirus / COVID-19? No / Unsure 07/30/2020 4:53 PM GROVE SUPERINTENDENT documented as of this encounter Miscellaneous Notes * Telephone Encounter - Marija Edgar APRN CNP - 07/30/2020 10:21 AM GROVE SUPERINTENDENT Responded via MyChart Marija Edgar APRN CNP on 07/30/2020 at 10:28 AM E SUPERINTENDENT documented in this encounter Plan of Treatment Upcoming Encounters Date Type Department Care Team (Late st Contact Info) Description 04/30/2025 10:30 AM CDT Office Visit [facility] [address], [address] [place] [phone] Liset Márquez MD [address] [place] [address] 05/30/2025 2:45 PM GROVE SUPERINTENDENT Office Visit [facility] [address] [facility] [address] [place] [phone] Fabiano Correa, BRYCE 6405 [place], [place] [address] Walter Nowak MD [address] [facility] [place], [place] [address] 08/07/2025 8:15 AM GROVE SUPERINTENDENT Office Visit [facility] [address] [facility] [address] [place] [phone] Lucien Grimes MD [address] [phone] [place], [place] [address]48[address] 08/21/2025 9:00 AM GROVE SUPERINTENDENT Office Visit [facility] [address] [phone] Niel [place] MD [address] [place] [address] 028505 10/09/2025 10:45 AM CDT Virtual Visit [facility] [address] 4th [place] [phone] Meredith Carrera PA-C [address] [place] [address] 143395 documented as of this encounter Visit Diagnoses Diagnosis Palpitations- Primary documented in this encounter Additional Health Concerns Infection Onset Date Last Indicated Resolved Time Rule Out COVID-19 07/30/2020 07/30/2020 07/30/2020 7:11 PM GROVE SUPERINTENDENT Rule Out COVID-19 08/30/2020 08/30/2020 08/30/2020 5:05 PM GROVE SUPERINTENDENT Rule Out COVID-19 09/24/2020 09/24/2020 09/24/2020 9:24 AM CDT Rule Out COVID-19 11/05/2020 11/05/2020 11/06/2020 1:09 PM CDT Rule Out COVID-19 05/11/2021 05/11/2021 05/13/2021 10:18 AM CDT Rule Out COVID-19 07/13/2021 07/13/2021 07/14/2021 3:04 PM GROVE SUPERINTENDENT Rule Out COVID-19 07/18/2021 07/18/2021 07/20/2021 1:56 PM GROVE SUPERINTENDENT COVID-19 07/18/2021 07/18/2021 08/08/2021 11:3 9 PM GROVE SUPERINTENDENT Rule Out COVID-19 12/18/2021 12/18/2021 12/19/2021 11:34 AM CDT Rule Out COVID-19 02/24/2022 02/24/2022 02/25/2022 1:08 PM CDT Rule Out COVID-19 04/26/2022 04/26/2022 04/26/2022 6:47 AM CDT Rule Out COVID-19 05/17/2022 05/17/2022 05/17/2022 10:20 PM GROVE SUPERINTENDENT Rule Out COVID-19 06/09/2022 06/09/2022 06/09/2022 9:35 AM GROVE SUPERINTENDENT COVID-19 06/09/2022 06/09/2022 06/30/2022 11:4 1 PM GROVE SUPERINTENDENT Rule Out COVID-19 11/10/2022 11/10/2022 11/11/2022 [...] Depression Total Score: 9 06/25/20 7:04 AM GROVE SUPERINTENDENT documented as of this encounter Care Teams Cattle Driver Relationship Specialty Start Date End Date Marija Edgar APRN MOLD CLOSER PCP - General Nurse Practitioner 04/30/20 04/14/23 Esha Grimm PA-C [address] [place] [phone] PCP - General Family Medicine 05/04/23 Lita Oseguera Personal Advocate & Liaison (PAL) 02/28/20 03/27/23 Chanelle Mccann APRN CNM 84969 [facility] 200 [place], [place] 433867 Assigned OBGYN Provider 05/02/2005/09 Kyara De La Fuente, RN Specialty Vending Machine Operator Neurology 06/04/20 03/05/21 Marija Edgar APRN MOLD CLOSER Assigned PCP 06/08/20 04/29/23 Mynor Broussard MD 909 [place] [address] Assigned Surgical Provider 06/01/20 11/28/21 Keisha Dotson MD 909 [place], [place] 778745 Assigned Neuroscience Provider 06/04/20 04/01/23 Mary Mejia Financial Resource Worker 08/07/20 08/21/20 Stacey Briones, [facility] Lead Vending Machine Operator Primary Care - CC 08/11/20 12/30/20 Lesley Guillermo, [facility] Community Health Worker 08/11/20 10/01/20 Mary Mejia Financial Resource Worker 09/02/20 10/06/20 Lita Oseguera Personal Advocate & Liaison (PAL) Family Medicine 09/10/20 09/21/20 Galo Burrell MD Assigned Heart and Vascular Provider 10/05/20 04/02/22 Cristina Wood Financial Resource Worker 10/07/20 10/14/20 Lesley Guillermo, [facility] Community Health Worker 10/23/20 12/30/20 Meredith Bedoya Financial Resource Worker 10/23/20 11/23/20 Cristina Wood Financial Resource Worker 02/09/21 02/09/21 Diana Desir, [facility] [address] [place] [address] Pharmacist Pharmacist 04/17/21 Rain Galaviz PA-C [address] [place] [address] DR AR[address] [facility] [address] Physician Account Manager Sales Representative Dermatology 04/28/21 Summer Lara MD [address] [place] [address] Assigned OBGYN Provider 05/10/2105/23 Summer Lara MD [address] [place], [place] 944[address] Assigned OBGYN Provider 05/31/21 Summer Lara MD [address] [place], [place] 124[address] Assigned OBGYN Provider 05/24/2105/30 Tavia Wyatt MD [address] [place], [place] 7685[address] Dermatology 07/14/21 Johnny Murillo MD [address] [facility] [address] [place] [address] Assigned Musculoskeletal Provider 08/30/21 03/17/22 Erica Farrell APRN MOLD CLOSER 6[address] [facility] [address] [place] 445035 Nurse Practitioner Cardiovascular Disease 09/09/21 Teresita Bean [facility] [address] [phone] Pharmacist Pharmacist 09/24/21 09/29/21 Tavia Wyatt MD [facility] [place], [place] 654330 Assigned Surgical Provider 11/29/21 05/07/22 Diana Desir, [facility] 3033 [place] [address] Assigned MTM Pharmacist 01/02/22 Rich Barrett MD 3033 [place] [address] Physician Ophthalmology 01/21/22 Neil Kent MD 500 [place], [place] 144295 Dermatology 02/24/22 Roney Story DPM [address] [employer] [facility] [address] [place], [place] 0[address] Assigned Musculoskeletal Provider 03/20/22 08/13/22 Erica Farrell APRN MOLD CLOSER 1700 [place] [address] Assigned Heart and Vascular Provider 04/03/22 04/16/22 Diana Desir, [facility] 30[address] [place] [address] Assigned MTM Pharmacist 04/07/22 [place] David [place] [address] [place] [address] Assigned Surgical Provider 05/08/22 10/08/22 Galo Burrell MD Assigned Heart and Vascular Provider 04/17/22 06/11/22 Livan Sharif MD 6405 [facility] [address] [place] [address] Cardiovascular Disease 05/14/22 Livan Sharif MD [address] [facility] [place] [address] Assigned Heart and Vascular Provider 06/12/22 07/23/22 Catherine Cm MD [address] [facility] [place] [address] Cardiovascular Disease 07/21/22 Valery Veronica, PAUcheC [address] [place] [address] Physician Account Manager Sales Representative Dermatology 07/21/22 Catherine Cm MD [address] [address] [address] Assigned Heart and Vascular Provider 07/24/22 11/05/22 [place] [address] [place] [address] 154284 Assigned Musculoskeletal Provider 08/14/22 10/08/22 Brea Quinn APRN MOLD CLOSER [address] [place] [address] Nurse Practitioner Dermatology 09/21/22 Brea Quinn APRN MOLD CLOSER [address] [place] [address] [place] [address] Assigned Surgical Provider 10/09/22 05/01/24 [place] [address] [place] [address] Assigned Musculoskeletal Provider 10/09/22 05/01/24 Livan Sharif MD [address] [place] [address] Assigned Heart and Vascular Provider 11/06/22 11/12/22 Catherine Cm MD [address] [place] [address] Assigned Heart and Vascular Provider 11/13/22 05/27/23 Sydnie Martinez RN Personal Advocate & Liaison (PAL) Family Medicine 03/28/23 07/31/23 Alfonso Renteria MD 5775 [facility] 200 [place] [address] Assigned Neuroscience Provider 04/02/23 09/29/24 Cheng Todd PA-C [address] [place] [address] [id number] Assigned PCP 04/30/23 07/15/23 Radha Lomeli, ARLENE MOLD CLOSER [address] [place] [address] Assigned Heart and Vascular Provider 05/28/23 11/29/24 Jelena David OD [address] [place] [address] Ophthalmology 06/15/23 Pao Joseph, VJ Personal Advocate & Liaison (PAL) Nurse 08/01/23 11/07/23 Esha Grimm PA-C [address] [place] [address]94[address]83 Assigned PCP 07/16/23 Valery Veronica PA-C [address] [place] [address] 097755 Physician Account Manager Sales Representative Dermatology 09/19/23 Rey Tay MD [address] [place] [address] 103945 MD Gastroenterology 09/20/23 Rocky Zepeda DO [address] [place] [address] 569335 Physician Gastroenterology 09/20/23 Philip Dumont MD [address] [place] [address] 880475 Physician Ophthalmology 09/22/23 Meredith Carrera PA-C [address] [place] [address] Assigned Gastroenterology Provider 11/01/23 Neil Kent MD [address] [address] Dermatology 11/02/23 [place] [address] [place] [address] Neurological Surgery 12/26/23 Audrey Waiet PA-C [address] [place] [address] Physician Account Manager Sales Representative Dermatology 02/28/24 Valery Veronica PA-C 859812 [facility] [place] [address] Physician Account Manager Sales Representative Dermatology 04/10/24 Herminia Hatch MD [address] [place] [address] Assigned Rheumatology Provider 07/02/24 Jelena David OD [address] [place] [address] [place] [address] Ophthalmology 08/30/24 [place] [address] [place] [address] Assigned Neuroscience Provider 09/30/24 Maru Man PA-C [address] [place] [address] Physician Account Manager Sales Representative Dermatology 10/03/24 Maru Man PA-C [address] [place] [address] Physician Account Manager Sales Representative Dermatology 10/22/24 Jelena David, SONJA [address] [place] [address] [place] [address] Assigned Surgical Provider 10/31/24 Fabiano Correa NP [address] [place] [address] Assigned Heart and Vascular Provider 11/30/24 Walter Nowak MD 6405 [place] [address] Physician Clinical Cardiac Electrophysiology 03/01/25 Liset Márquez MD [address] [place], [place] 6679[address] supervisor waterproofing 03/13/25 Lauren Coronado, [facility] 909 [place], [place] 103565 Pharmacist Pharmacist 04/15/25 documented as of this encounter
--- OUTSIDE RECORDS SUMMARY | 2025-04-26 23:57 | XMS_ITS | Encounter Summary ---
Author Organization [facility] Address [address] [place] [address] Care Team Providers Care Drying Room Operator Name Role Phone Diana Desir [facility] Unavailable Rain GalavizC Unavailable Tavia Wyatt MD Unavailable [phone] Erica Farrell APRN LEADERSHIP RECRUITER Unavailable Rich Barrett MD Unavailable [phone] Neil Kent MD Unavailable ThangKendrickDiana Stanislav [facility] Unavailable Livan Sharif MD Unavailable Catherine Cm MD Unavailable + Valery Veronica-C Unavailable Brea Quinn APRN LEADERSHIP RECRUITER Unavailable [phone] Esha Grimm PA-C Primary Care Provider Jelena David OD Unavailable Esha Grimm PA-C Unavailable [phone] Valery Veronica PA-C Unavailable Rey Tay MD Unavailable DuaneRocky Unavailable Philip Dumont MD Unavailable [phone] Meredith Carrera PA-C Unavailable [phone] Neil Kent MD Unavailable Juan Pablo Emmanuel MD Unavailable [phone] Audrey Waite PA-C Unavailable [phone] Valery Veronica PA-C Unavailable [phone] Herminia Hatch MD Unavailable Jelena David OD Unavailable Juan Pablo Emmanuel MD Unavailable [phone] Maru Man-C Unavailable [phone] Maru Man PA-C Unavailable [phone] Jelena David OD Unavailable Fabiano Correa NP Unavailable [phone] Walter Nowak MD Unavailable Liset Márquez MD Unavailable Encounter Details Date Type Department Care Team (Latest Contact Info) Description 04/10/2025 Travel Social History Tobacco Use Types Packs/Day [...] week 05/07/2024 How often do you attend [facility] or hindu services? 1 to 4 [...] Answer Date Recorded PHQ-2 Score 1 04/11/2025 [facility] [...] at this level? 20 min 05/07/2024 [employer] Depression Scale Answer Date Recorded [employer] Depression Score 5 01/14/2021 Last EPDS Self [...] Description 04/30/2025 10:30 AM CDT Office Visit [facility] [place] [address], [address] [place] [phone] Liset Márquez MD [address] [facility] 300 [place] [address] 05/30/2025 2:45 PM FAMILY DAY CARER Office Visit [facility] 6405 [facility] [address] [place] [phone] Fabiano Correa, LOAN CLOSER [address] [place] [address] Walter Nowak MD [address] [place] 118505 08/07/2025 8:15 AM FAMILY DAY CARER Office Visit [facility] 6405 [facility] [address] [place] [phone] Lucien Grimes MD [address] [place] [id number] 08/21/2025 9:00 AM FAMILY DAY CARER Office Visit [facility] [address] [phone] Neil Kent MD 500 [place], [place] [phone] 10/09/2025 10:45 AM CDT Virtual Visit [facility] Gastroenterology [facility] [address] [place] [address] 4th [place] [address] Meredith Carrera PA-C [address] [place] [address] 710795 documented as of this encounter Visit Diagnoses Not on filedocumented in this encounter Additional Health Concerns Assessment Noted Time PHQ-9 Depression Total Score: 5 10/25/19 25 10:38 AM CDT documented as of this encounter Care Teams Drying Room Operator Relationship Specialty Start Date End Date Esha Grimm PA-C [address] [place] [phone] PCP - General Family Medicine 05/04/23 Diana Desir, [facility] 3033 [place], [place] 600776 Pharmacist Pharmacist 04/17/21 Rain Galaviz PA-C [address] [place] [address] [address] [place] [address] Physician Camera Mechanic Dermatology 04/28/21 Tavia Wyatt MD [address] [place] [address] DR RA[address] Lara [place] [address] Dermatology 07/14/21 Erica Farrell APRN LEADERSHIP RECRUITER [address] [place] [address] Nurse Practitioner Cardiovascular Disease 09/09/21 Rich Barrett MD [address] [place] 828755 Physician Ophthalmology 01/21/22 Neil Kent MD 500 [place], [place] 694905 Dermatology 02/24/22 Diana Desir, [facility] [address] [place] [address] Assigned MTM Pharmacist 04/07/22 Livan Sharif MD [address] [place] 077615 Cardiovascular Disease 05/14/22 Catherine Cm MD [address] [place] 436335 Cardiovascular Disease 07/21/22 Valery Veronica PA-C [address] [place] [address] 319145 Physician Camera Mechanic Dermatology 07/21/22 Brea Quinn APRN CNP [address] [place] [address] 520095 Nurse Practitioner Dermatology 09/21/22 Jelena David OD [address] [place] [address] [place] [address] Ophthalmology 06/15/23 Esha Grimm PA-C [address] [place] [phone] Assigned PCP 07/16/23 Valery Veronica PA-C [address] [place] [address] 669455 Physician Camera Mechanic Dermatology 09/19/23 Rey Tay MD [address] [place] [address] 643165 Gastroenterology 09/20/23 Rocky Zepeda DO [address] [place] [address] 572665 Physician Gastroenterology 09/20/23 Philip Dumont MD [address] [place] [address] Physician Ophthalmology 09/22/23 Meredith Carrera PA-C 909 [place] [address] Assigned Gastroenterology Provider 11/01/23 Neil Kent MD [address] [place] [address] MD Dermatology 11/02/23 [place] [address] [place] [address] Neurological Surgery 12/26/23 Audrey Waite PA-C [address] [place] [address] Physician Camera Mechanic Dermatology 02/28/24 Valery Veronica PA-C [address]802 [address] [place] [address] Physician Camera Mechanic Dermatology 04/10/24 Herminia Hatch MD [address] [place] [address] [id number] Assigned Rheumatology Provider 07/02/24 Jelena David OD [address] [place] [address] [place] [address] Ophthalmology 08/30/24 [place] [address] [facility] [place] [address] Assigned Neuroscience Provider 09/30/24 Maru Man PA-C [address] [place] [address] Physician Camera Mechanic Dermatology 10/03/24 Maru Man PA-C [address] [place] [address] Physician Camera Mechanic Dermatology 10/22/24 [place]ena David OD [address] [facility] [place] [address] Assigned Surgical Provider 10/31/24 Fabiano Correa NP [address] [place] 928545 Assigned Heart and Vascular Provider 11/30/24 Walter Nowak MD [address] [place] 663965 Physician Clinical Cardiac Electrophysiology 03/01/25 Liset Márquez MD [address] [phone] lighting adviser 03/13/25 documented as of this encounter
--- OUTSIDE RECORDS SUMMARY | 2025-04-26 23:57 | XMS_ITS | Encounter Summary ---
Author Organization [place] Address [address] [place] [address] Care Team Providers Care It Consultant Name Role Phone Diana Desir [facility] Unavailable [phone] Rain GalavizC Unavailable Tavia Wyatt MD Unavailable [phone] Erica Farrell APRN BEHAVIORAL HEALTH TECHNICIAN Unavailable Rich Barrett MD Unavailable [phone] Neil [place] MD Unavailable ThangKendrickDiana Stanislav [facility] Unavailable Livan Sharif MD Unavailable Catherine Cm MD Unavailable + Valery Veronica-C Unavailable [phone] Brea Quinn APRN BEHAVIORAL HEALTH TECHNICIAN Unavailable Esha Grimm PA-C Primary Care Provider [phone] Jelena David OD Unavailable Esha Grimm PA-C Unavailable [phone] Valery Veronica PA-C Unavailable [phone] Rey Tay MD Unavailable DuaneRocky Unavailable Philip Dumont MD Unavailable [phone] Meredith Carrera PA-C Unavailable Neil [place] MD Unavailable Juan Pablo Emmanuel MD Unavailable Audrey Waite PA-C Unavailable Valery Veronica PA-C Unavailable [phone] Herminia Hatch MD Unavailable Jelena David OD Unavailable [phone] Juan Pablo Emmanuel MD Unavailable [phone] Maru Man PA-C Unavailable Maru Man PA-C Unavailable Jelena David OD Unavailable Fabiano Correa NP Unavailable [phone] Walter Nowak MD Unavailable Liset Márquez MD Unavailable Lauren Coronado [facility] Unavailable Reason for Visit * Reason Onset Date Comments Prior Auth - Medication 04/16/2025 Vladimir Encounter Details Date Type Department Care Team (Late st Contact Info) Description 04/16/2025 Telephone [facility] D[facility] [place] 1398[address] [facility] 3rd [place] [address] Neil [place] MD [address] [place] [address] Prior Auth - Medication (Sonjaizi) Social History Tobacco Use Types Packs/Day Years [...] Answer Date Recorded PHQ-2 Score 1 04/11/2025 [facility] [...] exercise at this level? 20 min 05/07/2024 [place] Depression Scale Answer Date Recorded [...] PM CDT Legal Sex Female 4:13 AM FRENCH POLISHER Gender Identity Female 03/02/2021 5:45 PM CDT Sexual Orientation Straight 02/28/2020 12 :51 AM CDT documented as of this encounter Miscellaneous Notes * Telephone Encounter - Esha Santana - 04/17/2025 10:30 AM CDT Please discard, duplicate encounter. Closing thank you * Telephone Encounter - Esha Santana - 04/17/2025 8:26 AM CDT Images from the original note were not included. PRIOR AUTHORIZATION DENIED Medication: SKYRIZI PEN 150 MG/ML [place] SOAJ Insurance Company: [employer] [phone] Denial Date: 04/16/2025 Denial Reason(s): Appeal Information: [phone] Patient Notified: not yet * Telephone Encounter - Esha Santana - 04/16/2025 8:39 AM CDT PA Initiation Medication: SKYRIZI PEN 150 MG/ML [place] SO[place] Insurance Company: [employer] [phone] Pharmacy Filling the Rx: Filling Pharmacy Phone: Filling Pharmacy Fax: Start Date: 04/16/2025 Delacruz: [id number] documented in this encounter Plan of Treatment Upcoming Encounters Date Type Department Care Team (Late st Contact Info) Description 04/30/2025 10:30 AM CDT Office Visit [facility] Women's [facility] [address], 3[address] Fl[address], [address] [place] [phone] Liset Márquez MD [address] [place] [address] 05/30/2025 2:45 PM FRENCH POLISHER Office Visit [facility] Heart [facility] 6405 [facility] [address] [place] [phone] Fabiano Correa, PASSENGER BARGE MASTER 6404 [facility] [place] [address] Walter Nowak MD [address] [place] 613195 08/07/2025 8:15 AM FRENCH POLISHER Office Visit [facility] Heart [facility] 6[address] [facility] [address] [place] [phone] Lucien Grimes MD [address]404 [facility] [address] [place] [address] 08/21/2025 9:00 AM FRENCH POLISHER Office Visit [facility] [address] [address] Neil [place] MD 500 [place], [place] [phone] 10/09/2025 10:45 AM CDT Virtual Visit [facility] Gastroenterology [facility] [address] [place] [address] 4th [place] [phone] Meredith Carrera PA-C [address] [place] [address] 987945 documented as of this encounter Visit Diagnoses Not on filedocumented in this encounter Additional Health Concerns Assessment Noted Time PHQ-9 Depression Total Score: 5 04/11/20 25 9:17 AM CDT documented as of this encounter Care Teams It Consultant Relationship Specialty Start Date End Date Esha Grimm PAUcheC [address] [place] [phone] PCP - General Family Medicine 05/04/23 Diana Desir, [facility] [address] [place] [address] Pharmacist Pharmacist 04/17/21 Rain Galaviz PA-C [address] [place] [address] [address] [place] [address] Physician Police Commissioner Dermatology 04/28/21 Tavia Wyatt MD [address] [place] [address] [address] [place] [address] Dermatology 07/14/21 Erica Farrell APRN BEHAVIORAL HEALTH TECHNICIAN [address] [place] [address]75 Nurse Practitioner Cardiovascular Disease 09/09/21 Rich Barrett MD [address] [place] 762505 Physician Ophthalmology 01/21/22 Neil [place] MD 500 [place], [place] 922515 Dermatology 02/24/22 Diana Desir, [facility] 3033 [place] [address] Assigned [place] Pharmacist 04/07/22 Livan Sharif MD [address] [place] 789335 Cardiovascular Disease 05/14/22 Catherine Cm MD [address] [place] [address] Cardiovascular Disease 07/21/22 Valery Veronica PA-C [address] [place] [address] 893765 Physician Police Commissioner Dermatology 07/21/22 Brea Quinn APRN CNP [address] [place] [address] 964755 Nurse Practitioner Dermatology 09/21/22 Jelena David OD [address] [place] [address] [place] [address] MD Ophthalmology 06/15/23 Esha Grimm PA-C [address] [place] [phone] Assigned PCP 07/16/23 Valery Veronica PA-C [address] [place] [address] Physician Police Commissioner Dermatology 09/19/23 Rey Tay MD [address] [place] [address] 313805 MD Gastroenterology 09/20/23 Rocky Zepeda DO [address] [place] [address] 623885 Physician Gastroenterology 09/20/23 Philip Dumont MD [address] [place] [address] 713325 Physician Ophthalmology 09/22/23 Meredith Carrera PA-C [address] [place] [address] 198515 Assigned Gastroenterology Provider 11/01/23 Neil [place] MD [address] [place] [address] MD Dermatology 11/02/23 [place] [address] [place] [address] Neurological Surgery 12/26/23 Audrey Waite PA-C 500 [place] [address] Physician Police Commissioner Dermatology 02/28/24 Valery Veronica PA-C 541339 [place], [place] [address] Physician Police Commissioner Dermatology 04/10/24 Herminia Hatch MD [address] [place] [address] [phone] Assigned Rheumatology Provider 07/02/24 Jelena David OD [address] [place] [address] [place] [address] Ophthalmology 08/30/24 [place] [address] [place] [address] Assigned Neuroscience Provider 09/30/24 Maru Man PA-C [address] [place] [address] Physician Police Commissioner Dermatology 10/03/24 Maru Man PA-C [address] [place] [address] Physician Police Commissioner Dermatology 10/22/24 Jelena David OD [address] [facility] [place] [place] [address] Assigned Surgical Provider 10/31/24 Fabiano Correa, BRYCE [address] [place] [address] Assigned Heart and Vascular Provider 11/30/24 Walter Nowak MD [address] [place] 515855 Physician Clinical Cardiac Electrophysiology 03/01/25 Liset Márquez MD [address] [facility] 300 [place] [address] linseed oil press tender 03/13/25 Lauren Coronado, [facility] 909 [place], [place] 537075 Pharmacist Pharmacist 04/15/25 documented as of this encounter
--- OUTSIDE RECORDS SUMMARY | 2025-04-26 23:57 | XMS_ITS | Encounter Summary ---
Author Organization [place] Address [address] [place] [address] Care Team Providers Care Padded Box Sewer Name Role Phone Diana Desir [facility] Unavailable Rain GalavizC Unavailable Tavia Wyatt MD Unavailable [phone] Erica Farrell APRN REED FIXER Unavailable Rich Barrett MD Unavailable [phone] Neil [place] MD Unavailable ThangKendrickDiana Stanislav [facility] Unavailable Livan Sharif MD Unavailable Catherine Cm MD Unavailable + Valery Veronica-C Unavailable [phone] Brea Quinn APRN REED FIXER Unavailable Esha Grimm PA-C Primary Care Provider [phone] Jelena David OD Unavailable Esha Grimm PA-C Unavailable [phone] Valery Veronica PA-C Unavailable [phone] Rey Tay MD Unavailable Duane Rocky Unavailable Philip Dumont MD Unavailable Meredith Carrera PA-C Unavailable [phone] Neil [place] MD Unavailable Juan Pablo Emmanuel MD Unavailable Audrey Waite PA-C Unavailable Valery Veronica PA-C Unavailable [phone] Herminia Hatch MD Unavailable Jelena David OD Unavailable Juan Pablo Emmanuel MD Unavailable Maru Man PA-C Unavailable [phone] Maru Man PA-C Unavailable Jelena David OD Unavailable Fabiano Correa NP Unavailable [phone] Walter Nowak MD Unavailable Liset Márquez MD Unavailable Lauren Coronado [facility] Unavailable [phone] Encounter Details Date Type Department Care Team (Late st Contact Info) Description 04/10/2025 MyC Medical Advice [address] [address] Erica David, JOSE ALBERTO Social History Tobacco Use Types Packs/Day Years [...] Answer Date Recorded PHQ-2 Score 1 04/11/2025 [facility] - Occupational Stress Questionnaire [...] exercise at this level? 20 min 05/07/2024 [place] Depression Scale Answer Date Recorded [place] Depression Score 5 01/14/2021 Last EPDS Self [...] PM CDT Legal Sex Female 4:13 AM CEPHALOMETRIC TECHNICIAN Gender Identity Female 03/02/2021 5:45 PM CDT Sexual Orientation Straight 02/28/2020 12 :51 AM CDT documented as of this encounter Plan of Treatment Upcoming Encounters Date Type Department Care Team (Late st Contact Info) Description 04/30/2025 10:30 AM CDT Office Visit [facility] Women[facility] [address], 3rd Flr, [address] [employer] [place] [phone] Liset Márquez MD [address] [facility] 300 [place] [address] 05/30/2025 2:45 PM CEPHALOMETRIC TECHNICIAN Office Visit [facility] Heart [facility] 6405 [facility] [address] [place] [phone] Fabiano Correa NP [address] [place] [place] 205495 Walter Nowak MD [address] [place] 673845 08/07/2025 8:15 AM CEPHALOMETRIC TECHNICIAN Office Visit [facility] Heart [facility] 6405 [facility] [address] [place] [phone] Lucien Grimes MD [address] [facility]00 [place] 178005 08/21/2025 9:00 AM CEPHALOMETRIC TECHNICIAN Office Visit [facility] [address] [phone] Neil [place] MD [address] [place] [address] 055795 10/09/2025 10:45 AM CDT Virtual Visit [facility] Gastroenterology [address] 4th [place] [phone] Meredith Carrera PA-C [address] [place] [address] 742475 documented as of this encounter Visit Diagnoses Not on filedocumented in this encounter Additional Health Concerns Assessment Noted Time PHQ-9 Depression Total Score: 5 10/25/19 25 10:38 AM CDT documented as of this encounter Care Teams Padded Box Sewer Relationship Specialty Start Date End Date Esha Grimm PA-C [address] [place] [phone] PCP - General Family Medicine 05/04/23 Diana Desir, [facility] [address]33 for; [place] [address] Pharmacist Pharmacist 04/17/21 Rain Galaviz PA-C [address] [place] [address] [address] [place] [address] Physician Audio Specialist Dermatology 04/28/21 Tavia Wyatt MD [address] [place] [address] [place] [address] Dermatology 07/14/21 Erica Farrell APRN REED FIXER [address] [place] [address] Nurse Practitioner Cardiovascular Disease 09/09/21 Rich Barrett MD [address] [place] [address] Physician Ophthalmology 01/21/22 Neil [place] MD 500 [place], [place] 966705 Dermatology 02/24/22 Diana Desir, [facility] 303 for; [place] [address] Assigned MTM Pharmacist 04/07/22 Livan Sharif MD [address] [facility] [address] [place] 0[address]95 Cardiovascular Disease 05/14/22 Catherine Cm MD 6405 [facility] [address] [place], [place] 268545 Cardiovascular Disease 07/21/22 Valery Veronica, PA-C [address] [place] [address] 140405 Physician Audio Specialist Dermatology 07/21/22 Brea Quinn APRN REED FIXER [address] [place] [address] 813595 Nurse Practitioner Dermatology 09/21/22 Jelena David OD [address] [facility] [address] [place] [id number] Ophthalmology 06/15/23 Esha Grimm PA-C [address] [place] [phone] Assigned PCP 07/16/23 Valery Veronica, PA-C [address] [place] [address] Physician Audio Specialist Dermatology 09/19/23 Rey Tay MD [address] [place] [address] Gastroenterology 09/20/23 Rocky Zepeda DO [address] [place] [address] Physician Gastroenterology 09/20/23 Philip Dumont MD 516 [place] [address] Physician Ophthalmology 09/22/23 Meredith Carrera PA-C [address] [place] [address] Assigned Gastroenterology Provider 11/01/23 Neil Kent MD [address] [address] Dermatology 11/02/23 [place] [address] [place] [address] 110277 Neurological Surgery 12/26/23 Audrey Waite PA-C [address] [place] [address] Physician Audio Specialist Dermatology 02/28/24 Valery Veronica PA-C 76[address]52 [address] [place] [address] Physician Audio Specialist Dermatology 04/10/24 Herminia Hatch MD [address] [place] [address] [phone] Assigned Rheumatology Provider 07/02/24 Jelean David OD [address] [place] [address] [place] [address] Ophthalmology 08/30/24 [place] [address] [place] 476787 Assigned Neuroscience Provider 09/30/24 Maru Man PA-C [address] [place] [address] Physician Audio Specialist Dermatology 10/03/24 Maru Man PA-C [address] [place] [address] Physician Audio Specialist Dermatology 10/22/24 Jelena David OD [address] [facility] [place] [address] Assigned Surgical Provider 10/31/24 Fabiano Correa NP 6[address] [facility] [place] 515435 Assigned Heart and Vascular Provider 11/30/24 Walter Nowak MD [address] [place] 778395 Physician Clinical Cardiac Electrophysiology 03/01/25 Liset Márquez MD [address] [address] support manager 03/13/25 Lauren Coronado, [facility] 909 [place], [place] 893625 Pharmacist Pharmacist 04/15/25 documented as of this encounter
--- OUTSIDE RECORDS SUMMARY | 2025-04-26 23:57 | XMS_ITS | Encounter Summary ---
Author Organization [facility] Address [address] [place] [address] Care Team Providers Care Estate Administrator Name Role Phone Diana Desir [facility] Unavailable Rain GalavizC Unavailable Tavia Wyatt MD Unavailable [phone] Erica Farrell APRN GRINDER AND PLATER Unavailable Rich Barrett MD Unavailable [phone] Neil Kent MD Unavailable ThangKendrickDiana Stanislav [facility] Unavailable Livan Sharif MD Unavailable Catherine Cm MD Unavailable + Valery Veronica-C Unavailable Brea Quinn APRN GRINDER AND PLATER Unavailable Esha Grimm PA-C Primary Care Provider [phone] Jelena David OD Unavailable Esha Grimm PA-C Unavailable [phone] Valery Veronica PA-C Unavailable Rey Tay MD Unavailable DuaneRocky Unavailable Philip Dumont MD Unavailable [phone] Meredith Carrera PA-C Unavailable [phone] Neil Kent MD Unavailable Juan Pablo Emmanuel MD Unavailable Audrey Waite PA-C Unavailable [phone] Valery Veronica PA-C Unavailable Herminia Hatch MD Unavailable Jelena David OD Unavailable [phone] Juan Pablo Emmanuel MD Unavailable [phone] Maru Man-C Unavailable [phone] Maru Man PA-C Unavailable [phone] Jelena David OD Unavailable Fabiano Correa NP Unavailable [phone] Walter Nowak MD Unavailable Liset Márquez MD Unavailable Encounter Details Date Type Department Care Team (Latest Contact Info) Description 04/12/2025 Travel Social History Tobacco Use Types Packs/Day [...] you attend [facility] or [employer]? 1 to 4 times [...] Answer Date Recorded PHQ-2 Score 1 04/11/2025 [facility] - Occupational Stress Questionnaire Answer Date [...] exercise at this level? 20 min 05/07/2024 [place] Depression Scale Answer Date Recorded [place] [...] PM CDT Legal Sex Female 4:13 AM IMMUNOLOGIST Gender Identity Female 03/02/2021 5:45 PM CDT Sexual Orientation Straight 02/28/2020 12 :51 AM CDT documented as of this encounter Plan of Treatment Upcoming Encounters Date Type Department Care Team (Late st Contact Info) Description 04/30/2025 10:30 AM CDT Office Visit [facility] [place] [address], [address] [place] [phone] Liset Márquez MD [address] [facility] 300 [place] [address] 05/30/2025 2:45 PM IMMUNOLOGIST Office Visit [facility] Heart [facility] 6[address] [facility] [address] [place] [phone] Fabiano Correa, BLEACH PLANT OPERATOR [address] [facility] [place] [address] Walter Nowak MD [address] [place] 647215 08/07/2025 8:15 AM IMMUNOLOGIST Office Visit [facility] Heart [facility] 6[address] [facility] [address] [place] [phone] Lucien Grimes MD [address] [place] 784885 08/21/2025 9:00 AM IMMUNOLOGIST Office Visit [facility] [address] [phone] Neil Kent MD 500 [place], [place] [phone] 10/09/2025 10:45 AM CDT Virtual Visit [facility] Gastroenterology [facility] [address] [place] [address] 4th [place] [address] Meredith Carrera PA-C [address] [place] [address] 344205 documented as of this encounter Visit Diagnoses Not on filedocumented in this encounter Additional Health Concerns Assessment Noted Time PHQ-9 Depression Total Score: 5 04/11/20 25 9:17 AM CDT documented as of this encounter Care Teams Estate Administrator Relationship Specialty Start Date End Date Esha Grimm PA-C [address] [place] [phone] PCP - General Family Medicine 05/04/23 Diana Desir, [facility] 3033 [place], [place] 796926 Pharmacist Pharmacist 04/17/21 Rain Galaviz PA-C [address] [place] [address] [address] [place] [address] Physician Tack Driller Dermatology 04/28/21 Tavia Wyatt MD [address] [place] [address] DR [address] L[address] [place] [address] Dermatology 07/14/21 Erica Farrell APRN GRINDER AND PLATER [address] [place] [address] Nurse Practitioner Cardiovascular Disease 09/09/21 Rich Barrett MD [address] [place] 554645 Physician Ophthalmology 01/21/22 Neil Kent MD 500 [place], [place] 539265 Dermatology 02/24/22 Diana Desir, [facility] [address] [place] [address] Assigned MTM Pharmacist 04/07/22 Livan Sharif MD [address] [place] 029225 Cardiovascular Disease 05/14/22 Catherine Cm MD [address] [place] 556835 Cardiovascular Disease 07/21/22 Valery Veronica PA-C [address] [place] [address] 568835 Physician Tack Driller Dermatology 07/21/22 Brea Quinn APRN CNP [address] [place] [address] 625105 Nurse Practitioner Dermatology 09/21/22 Jelena David OD [address] [place] [address] [place] [address] Ophthalmology 06/15/23 Esha Grimm PA-C [address] [place] [phone] Assigned PCP 07/16/23 Valery Veronica PA-C [address] [place] [address] 630905 Physician Tack Driller Dermatology 09/19/23 Rey Tay MD [address] [place] [address] 651635 Gastroenterology 09/20/23 Rocky Zepeda DO [address] [place] [address] 791965 Physician Gastroenterology 09/20/23 Philip Dumont MD [address] [place] [address] Physician Ophthalmology 09/22/23 Meredith Carrera PA-C 909 [place] [address] Assigned Gastroenterology Provider 11/01/23 Neil Kent MD [address] [place] [address] MD Dermatology 11/02/23 [place] [address] [place] [address] Neurological Surgery 12/26/23 Audrey Waite PA-C [address] [place] [address] Physician Tack Driller Dermatology 02/28/24 Valery Veronica PA-C 282138 [address] [place] [address] Physician Tack Driller Dermatology 04/10/24 Herminia Hatch MD [address] [place] [address] [id number] Assigned Rheumatology Provider 07/02/24 Jelena David OD [address] [place] [address] [place] [address] Ophthalmology 08/30/24 [place] [address] [place] [facility] [place] [address] Assigned Neuroscience Provider 09/30/24 Maru Man PA-C [address] [place] [address] Physician Tack Driller Dermatology 10/03/24 Maru Man PA-C [address] [place] [address] Physician Tack Driller Dermatology 10/22/24 Jelena David OD [address] [facility] [place] [address] Assigned Surgical Provider 10/31/24 Fabiano Correa NP [address] [place] 002165 Assigned Heart and Vascular Provider 11/30/24 Walter Nowak MD [address] [place] 703705 Physician Clinical Cardiac Electrophysiology 03/01/25 Liset Márquez MD [address] 544524 refuse driver 03/13/25 documented as of this encounter
--- OUTSIDE RECORDS SUMMARY | 2025-04-26 23:57 | XMS_ITS | Encounter Summary ---
Author Organization [place] Address [address] [place] [address] Care Team Providers Care Obiee Report Developer Name Role Phone Diana Desir [facility] Unavailable [phone] Rain GalavizC Unavailable Tavia Wyatt MD Unavailable [phone] Erica Farrell APRN POLE PEELING MACHINE OPERATOR HELPER Unavailable Rich Barrett MD Unavailable [phone] Neil Kent MD Unavailable ThangKendrickDiana Stanislav [facility] Unavailable [phone] Livan Sharif MD Unavailable Catherine Cm MD Unavailable + Valery Veronica-C Unavailable Brea Quinn APRN POLE PEELING MACHINE OPERATOR HELPER Unavailable [phone] Esha Grimm PA-C Primary Care Provider [phone] Jelena David OD Unavailable [phone] Esha Grimm PA-C Unavailable [phone] Valery Veronica PA-C Unavailable [phone] Rey Tay MD Unavailable DuaneRocky Unavailable Philip Dumont MD Unavailable [phone] Meredith Carrera PA-C Unavailable [phone] Neil Kent MD Unavailable Juan Pablo Emmanuel MD Unavailable Audrey Waite PA-C Unavailable Valery Veronica PA-C Unavailable Herminia Hatch MD Unavailable Jelena David OD Unavailable [phone] Juan Pablo Emmanuel MD Unavailable Maru Man PA-C Unavailable Maru Man PA-C Unavailable Jelena David OD Unavailable [phone] Fabiano Correa NP Unavailable [phone] Walter Nowak MD Unavailable Liset Márquez MD Unavailable Lauren Coronado [facility] Unavailable Reason for Visit * Reason Onset Date Comments Prior Auth - Medication 04/10/2025 Vladimir Encounter Details Date Type Department Care Team (Late st Contact Info) Description 04/10/2025 Telephone [facility] D[facility]ology [facility] [place] [id number] [facility] [address] [place] [address] Neil Kent MD [address] [place] [address] Prior Auth - Medication (Zaci) Social History Tobacco Use Types Packs/Day Years [...] Answer Date Recorded PHQ-2 Score 1 04/11/2025 [facility] [...] exercise at this level? 20 min 05/07/2024 [place] Depression Scale Answer Date Recorded [place] [...] PM CDT Legal Sex Female 4:13 AM FORGING ROLL OPERATOR Gender Identity Female 03/02/2021 5:45 PM CDT Sexual Orientation Straight 02/28/2020 12 :51 AM CDT documented as of this encounter Miscellaneous Notes * Telephone Encounter - Esha Santana - 2025 9:49 AM CDT Spoke with franklin and they didn't receive appeal we sent in. Verified fax and resent in again today.Will check back in a few days * Telephone Encounter - Esha Santana - 04/16/2025 12:43 PM CDT Medication Appeal Initiation Medication: SKYRIZI PEN 150 MG/ML [place] SOAJ Appeal Start Date: 04/16/2025 Insurance Company: [employer] Insurance Phone: Insurance Fax: Comments: faxed appeal * Telephone Encounter - Lauren Coronado RPH - 04/16/2025 11:39 AM CDT Prior authorization appeal for Skyrizi (risankizumab) pended; ready to be sent to insurance companyfor review. Will route to dermatology liaison for processing. Lauren Coronado RPH * Telephone Encounter - Lauren Coronado RPH - 04/11/2025 4:14 PM CDT Will discuss next steps with patient at appointment on 04/15. Lauren Coronado RPH * Telephone Encounter - Esha Santana - 04/11/2025 2:47 PM CDT Images from the original note were not included. PRIOR AUTHORIZATION DENIED Medication: SKYRIZI PEN 150 MG/ML [place] SOAGabo Insurance Company: [employer] - Denial Date: 04/11/2025 Denial Reason(s): Appeal Information: [phone] Patient Notified: not yet * Telephone Encounter - Esha Santana - 04/10/2025 11:46 AM CDT PA Initiation Medication: SKYRIZI PEN 150 MG/ML [place] SOAJ Insurance Company: [employer] - Pharmacy Filling the Rx: Filling Pharmacy Phone: Filling Pharmacy Fax: Start Date: 04/10/2025 Delacruz: [id number] documented in this encounter Plan of Treatment Upcoming Encounters Date Type Department Care Team (Late st Contact Info) Description 04/30/2025 10:30 AM CDT Office Visit [facility] [place] [address], [address], [address] [place] [address] Liset Márquez MD [address] [address] 05/30/2025 2:45 PM FORGING ROLL OPERATOR Office Visit [address] [phone] Fabiano Correa NP 6405 [place], [place] 4357[address] Walter Nowak MD 3208 [place], [place] 940[address] 08/07/2025 8:15 AM FORGING ROLL OPERATOR Office Visit [address] [phone] Lucien Grimes MD [address] [address] 08/21/2025 9:00 AM FORGING ROLL OPERATOR Office Visit [facility] [address] [phone] Neil Kent MD [address] [place] [address] 10/09/2025 10:45 AM CDT Virtual Visit [facility] Gastroenterology [facility] [address] [place] [address] 4th [place] [phone] Meredith Carrera PA-C [address] [place] [address] documented as of this encounter Visit Diagnoses Not on filedocumented in this encounter Additional Health Concerns Assessment Noted Time PHQ-9 Depression Total Score: 5 10/25/19 25 10:38 AM CDT documented as of this encounter Care Teams Obiee Report Developer Relationship Specialty Start Date End Date Esha Grimm PA-C [address] [place] [phone] PCP - General Family Medicine 05/04/23 Diana Desir, [facility] [address] [place] [address] Pharmacist Pharmacist 04/17/21 Rain Galaviz PA-C [address] [place] [address] [address] [place] [address] Physician Entrepreneurship Program Director Dermatology 04/28/21 Tavia Wyatt MD [address] [place] [address] [address] [place] [address] Dermatology 07/14/21 Erica Farrell APRN POLE PEELING MACHINE OPERATOR HELPER [address] [facility] [address] [place], [place] [address] Nurse Practitioner Cardiovascular Disease 09/09/21 Rich Barrett MD [address] [place], [place] [address] Physician Ophthalmology 01/21/22 Neil Kent MD 500 [place], [place] 7[address]75 Dermatology 02/24/22 Diana Desir, [facility] [address] [place] [address] Assigned [facility] Pharmacist 04/07/22 Livan Sharif MD [address] [address] Cardiovascular Disease 05/14/22 Catherine Cm MD [address] [address] Cardiovascular Disease 07/21/22 Valery Veronica, PA-C [address] [place] [address] Physician Entrepreneurship Program Director Dermatology 07/21/22 Brea Quinn APRN POLE PEELING MACHINE OPERATOR HELPER 500 [place], [place] 204105 Nurse Practitioner Dermatology 09/21/22 Jelena David OD [address] [facility] [place] [address] MD Ophthalmology 06/15/23 Esha Grimm PA-C [address] [place] [phone] Assigned PCP 07/16/23 Valery Veronica PA-C [address] [place] [address] Physician Entrepreneurship Program Director Dermatology 09/19/23 Rey Tay MD [address] [place] [address]25[address] MD Gastroenterology 09/20/23 Rocky Zepeda DO [address] [place] [address] 858905 Physician Gastroenterology 09/20/23 Philip Dumont MD [address] [place] [address] 141695 Physician Ophthalmology 09/22/23 Meredith Carrera PA-C [address] [place] [address]495 Assigned Gastroenterology Provider 11/01/23 Neil Kent MD [address] [place] [address] Dermatology 11/02/23 [place] [address] [address] Neurological Surgery 12/26/23 Audrey Waite PA-C 500 [place] [address] Physician Entrepreneurship Program Director Dermatology 02/28/24 Valery Veronica PA-C 428697 [facility] [place] [address] Physician Entrepreneurship Program Director Dermatology 04/10/24 Herminia Hatch MD [address] [place] [address] Assigned Rheumatology Provider 07/02/24 Jelena David OD [address] [place] [address] [place] [address] Ophthalmology 08/30/24 [place] [address] [place] [place] [address] Assigned Neuroscience Provider 09/30/24 Maru Man PA-C [address] [place] [address] Physician Entrepreneurship Program Director Dermatology 10/03/24 Maru Man PA-C [address] [place] [address] Physician Entrepreneurship Program Director Dermatology 10/22/24 Jelena David OD [address] [place] [address] [place] [address] Assigned Surgical Provider 10/31/24 Fabiano Correa NP 6405 [facility] [place] [address] Assigned Heart and Vascular Provider 11/30/24 Walter Nowak MD 6405 [place], [place] 175635 Physician Clinical Cardiac Electrophysiology 03/01/25 Liset Márquez MD [address] [address] therapy director 03/13/25 Lauren Coronado, [facility] [address] [place] [address] Pharmacist Pharmacist 04/15/25 documented as of this encounter
--- OUTSIDE RECORDS SUMMARY | 2025-04-26 23:57 | XMS_ITS | Encounter Summary ---
Author Organization [place] Address [address] [place] [address] Care Team Providers Care Printing Pressman Name Role Phone Diana Desir [facility] Unavailable Rain GalavizC Unavailable [phone] Tavia Wyatt MD Unavailable [phone] Erica Farrell APRN NURSING UNIT CLERK Unavailable Rich Barrett MD Unavailable [phone] Neil Kent MD Unavailable ThangKendrickDiana Stanislav [facility] Unavailable [phone] Livan Sharif MD Unavailable Catherine Cm MD Unavailable + Valery Veronica-C Unavailable [phone] Brea Quinn APRN NURSING UNIT CLERK Unavailable Esha Grimm PA-C Primary Care Provider Jelena David OD Unavailable Esha Grimm PA-C Unavailable [phone] Valery Veronica PA-C Unavailable Rey Tay MD Unavailable DuaneRocky Unavailable Philip Dumont MD Unavailable [phone] Meredith Carrera PA-C Unavailable [phone] Neil Kent MD Unavailable Juan Pablo Emmanuel MD Unavailable Audrey Waite PA-C Unavailable Valery Veronica PA-C Unavailable Herminia Hatch MD Unavailable Jelena David OD Unavailable Juan Pablo Emmanuel MD Unavailable [phone] Maru Man PA-C Unavailable Maru Man PA-C Unavailable Jelena David OD Unavailable Fabiano Correa NP Unavailable [phone] Walter Nowak MD Unavailable Liset Márquez MD Unavailable Lauren Coronado [facility] Unavailable Reason for Visit * Reason Onset Date Comments Appointment 04/16/2025 Encounter Details Date Type Department Care Team (Late st Contact Info) Description 04/16/2025 Telephone [facility] [place] [address] [facility] [address] [place] [address] Chriss Coffman MD 0[address] [facility] [address] [place] [address] Appointment Social History Tobacco Use Types [...] you attend [facility] or [facility] [facility]? 1 to 4 times [...] Answer Date Recorded PHQ-2 Score 1 04/11/2025 [place] [facility] [...] at this level? 20 min 05/07/2024 [place] Depression Scale Answer Date Recorded [place] Depression Score 5 01/14/2021 Last EPDS [...] CDT Legal Sex Female 4:13 AM WELDER SHIELDED METAL ARC Gender Identity Female 03/02/2021 5:45 PM CDT Sexual Orientation Straight 02/28/2020 12 :51 AM CDT documented as of this encounter Miscellaneous Notes * Telephone Encounter - Nicole Morales - 04/16/2025 3:58 PM CDT Patient needs to be rescheduled for their virtual visit due to Reason for Reschedule: Patient Request Appointment mode: Video Provider: Chriss Coffman MD documented in this encounter Plan of Treatment Upcoming Encounters Date Type Department Care Team (Late st Contact Info) Description 04/30/2025 10:30 AM CDT Office Visit [facility] [address], [address] [place] [phone] Liset Márquez MD [address] [place] [address] 05/30/2025 2:45 PM WELDER SHIELDED METAL ARC Office Visit [facility] [address] [phone] Fabiano Correa NP 6405 [place], [place] 6[address] Walter Nowak MD 0785 [place], [place] [address] 08/07/2025 8:15 AM WELDER SHIELDED METAL ARC Office Visit [facility] [address] [phone] Lucien Grimes MD [address] [address] 08/21/2025 9:00 AM WELDER SHIELDED METAL ARC Office Visit [facility] [address] [address] Neil Kent MD 500 [place], [place] [address] 10/09/2025 10:45 AM CDT Virtual Visit [facility] Gastroenterology [facility] 909 [facility] 4th [place] [phone] Meredith Carrera PA-C 909 [place] [address] documented as of this encounter Visit Diagnoses Not on filedocumented in this encounter Additional Health Concerns Assessment Noted Time PHQ-9 Depression Total Score: 5 04/11/20 25 9:17 AM CDT documented as of this encounter Care Teams Printing Pressman Relationship Specialty Start Date End Date Esha Grimm PA-C [address] [place] [phone] PCP - General Family Medicine 05/04/23 Diana Desir, [facility] [address] [place] [address] Pharmacist Pharmacist 04/17/21 Rain Galaviz PA-C [address] [place] [address] [address] [facility] [place] [address] Physician Scrap Hoist Operator Dermatology 04/28/21 Tavia Wyatt MD [address] [place] [address] [address] [facility] [place] [address] Dermatology 07/14/21 Erica Farrell APRN NURSING UNIT CLERK [address] [place] [address] Nurse Practitioner Cardiovascular Disease 09/09/21 Rich Barrett MD [address] [place] [address] Physician Ophthalmology 01/21/22 Neil Kent MD 500 [place] [address] Dermatology 02/24/22 Diana Desir, [facility] [address] [place] [address] Assigned [place] Pharmacist 04/07/22 Livan Sharif MD [address] [place], [place] [address] Cardiovascular Disease 05/14/22 Catherine Cm MD [address] [place], [place] [address] Cardiovascular Disease 07/21/22 Valery Veronica PA-C [address] [place] [address] Physician Scrap Hoist Operator Dermatology 07/21/22 Brea Quinn APRN NURSING UNIT CLERK 500 [place] [address] Nurse Practitioner Dermatology 09/21/22 Jelena David OD [address] [place] [address] [place] [address] Ophthalmology 06/15/23 Esha Grimm PA-C [address] [place] [phone] Assigned PCP 07/16/23 Valery Veronica PA-C [address] [place] [address] Physician Scrap Hoist Operator Dermatology 09/19/23 Rey Tay MD [address] [place] [address] MD Gastroenterology 09/20/23 Rocky Zepeda DO [address] [place] [address] Physician Gastroenterology 09/20/23 hPilip Dumont MD [address] [place] [address] Physician Ophthalmology 09/22/23 Meredith Carrera PA-C [address] [place] [address] Assigned Gastroenterology Provider 11/01/23 Neil Kent MD [address] [address] Dermatology 11/02/23 [place] [address] [place] [address] Neurological Surgery 12/26/23 Audrey Waite PA-C 500 [place] [address] Physician Scrap Hoist Operator Dermatology 02/28/24 Valery Veronica PA-C 708558 [address], [place] [address] Physician Scrap Hoist Operator Dermatology 04/10/24 Herminia Hatch MD [facility] [place], [place] [address] Assigned Rheumatology Provider 07/02/24 Jelena David, SONJA [address] [facility] [place] [address] Ophthalmology 08/30/24 [place] [address] [address] [facility] 300 [place] [address] Assigned Neuroscience Provider 09/30/24 Maru Man PA-C [address] [place] [address] Physician Scrap Hoist Operator Dermatology 10/03/24 Maru Man PA-C [address] [place] [address] Physician Scrap Hoist Operator Dermatology 10/22/24 Jelena David, SONJA [address] [facility] [place] [address] Assigned Surgical Provider 10/31/24 Fabiano Correa, BRYCE [address] [place] 792645 Assigned Heart and Vascular Provider 11/30/24 Walter Nowak MD [address] [place] [address] Physician Clinical Cardiac Electrophysiology 03/01/25 Liset Márquez MD [address] [place] [address] emergency department aide 03/13/25 Lauren Coronado, [facility] [address] [place] [address] Pharmacist Pharmacist 04/15/25 documented as of this encounter
--- OUTSIDE RECORDS SUMMARY | 2025-04-26 23:57 | XMS_ITS | Encounter Summary ---
Author Organization [facility] Address [address] [place] [address] Care Team Providers Care Recessing Machine Operator Name Role Phone Lita Oseguera Unavailable Unavailable Rakesh Cid PA-C Unavailable Marija Edgar APRN CONCRETE GUN OPERATOR Primary Care Provider + Chanelle Mccann APRN CN Unavailab le Lesley Guillermo CHW Unavailable [phone] Kyara De La Fuente RN Unavailable [phone] Marija Edgar APRN [facility] Unavailable Mynor Broussard MD Unavailable [phone] Keisha Dotson MD Unavailable [phone] Mary Mejia Unavailable Unavailable Stacey Briones E COMMERCE SPECIALIST Unavailable [phone] Lesley Guillermo CHW Unavailable [phone] Mary Mejia Unavailable Unavailable Lita Osegeura Unavailable Unavailable Galo Burrell MD Unavailable Unavailable Cristina Wood Unavailable Lesley Guillermo CHW Unavailable Meredith Bedoya Unavailable Unavailable Cristina Wood Unavailable Diana Desir [facility] Unavailable Rain Galaviz PA-C Unavailable Summer Lara MD Unavailable [phone] Summer Lara MD Unavailable [phone] Summer Lara MD Unavailable [phone] Tavia Wyatt MD Unavailable [phone] Johnny Murillo MD Unavailable [phone] Erica Farrell APRN CONCRETE GUN OPERATOR Unavailable Teresita Bean H Unavailable Tavia Wyatt MD Unavailable [phone] Diana Desir [facility] Unavailable [phone] Rich Barrett MD Unavailable [phone] Neil Kent MD Unavailable Roney Story DPM Unavailable Erica Farrell APRN CONCRETE GUN OPERATOR Unavailable + Diana Desir [facility] Unavailable [phone] FrankieJelena OD Unavailable Galo Burrell MD Unavailable Unavailable Livan Sharif MD Unavailable + Livan Sharif MD Unavailable + Catherine Cm MD Unavailable + Valery Veronica PA-C Unavailable [phone] Catherine Cm MD Unavailable + Johnny Murillo MD Unavailable [phone] Brea Quinn APRN CONCRETE GUN OPERATOR Unavailable [phone] [place], Brea P LOWERATOR OPERATOR CONCRETE GUN OPERATOR Unavailable [phone] Jose Francisco Johnson MD Unavailable Livan Sharif MD Unavailable Catherine Cm MD Unavailable + Sydnie Martinez RN Unavailable Unavailable Alfonso Renteria MD Unavailable [phone] Esha Grimm PA-C Primary Care Provider Cheng Todd PA-C Unavailable Armani Radha Sia LOWERATOR OPERATOR CONCRETE GUN OPERATOR Unavailable Jelena David OD Unavailable [phone] Pao Joseph RN Unavailable Unavailable Esha Grimm PA-C Unavailable [phone] Valery Veronica PA-C Unavailable Rey Tay MD Unavailable Rocky Zepeda DO Unavailable Philip Dumont MD Unavailable [phone] Meredith Carrera PA-C Unavailable [phone] Neil Kent MD Unavailable Juan Pablo Emmanuel MD Unavailable Audrey Waite PA-C Unavailable Valery Veronica PA-C Unavailable Herminia Hatch MD Unavailable Jelena David OD Unavailable [phone] Juan Pablo Emmanuel MD Unavailable Maru Man PA-C Unavailable [phone] Maru Man PA-C Unavailable [phone] Jelena David OD Unavailable Madeline Fabiano Ayon NP Unavailable Walter Nowak MD Unavailable Liset Márquez MD Unavailable Ajay Coronadoloida Delgadillo [facility] Unavailable [phone] Encounter Details Date Type Department Care Team (Late st Contact Info) Description 06/05/2020 My[facility] Medical Advice [address] [address] Marija Edgar APRN CONCRETE GUN OPERATOR [address] [facility] [address] Social History Tobacco Use Types Packs/Day [...] PM CDT Legal Sex Female 4:13 AM PRIVATE CLIENT ADVISOR Gender Identity Female 03/02/2021 5:45 PM CDT Sexual Orientation Straight 02/28/2020 12 :51 AM CDT COVID-19 Exposure Response Date Recorded In the last month, have you been in contact with someone who was confirmed or suspected to have Coronavirus / COVID-19? No / Unsure 06/04/2020 10:30 AM PRIVATE CLIENT ADVISOR documented as of this encounter Miscellaneous Notes * Telephone Encounter - Marija Edgar APRN CNP - 06/09/2020 9:38 AM PRIVATE CLIENT ADVISOR Those referrals have been placed. The mental health attempted call but patient did not answer. Please have patient check voicemail's or await one further follow-up call. They will call her to set up Holter monitor. Thank you Marija Edgar APRN CNP on 06/09/2020 at 9:40 AM ATE CLIENT ADVISOR documented in this encounter Plan of Treatment Upcoming Encounters Date Type Department Care Team (Late st Contact Info) Description 04/30/2025 10:30 AM CDT Office Visit [facility] [address], [address] [place] [address] Liset Márquez MD [address] [facility] 300 [place] [address] 05/30/2025 2:45 PM PRIVATE CLIENT ADVISOR Office Visit [facility] [address] [phone] Fabiano Correa NP 6405 [place], [place] 122615 Walter Nowak MD 5045 [place], [place] 103285 08/07/2025 8:15 AM PRIVATE CLIENT ADVISOR Office Visit [facility] [address] [phone] Lucien Grimes MD [address] [phone] 08/21/2025 9:00 AM PRIVATE CLIENT ADVISOR Office Visit [facility] [address] [phone] Neil Kent MD 500 [place], [place] 0[address]305 10/09/2025 10:45 AM CDT Virtual Visit [facility] Gastroenterology [address] 4th [place] [phone] Meredith Carrera PA-C [address] [place] [address] documented as of this encounter Visit Diagnoses Not on filedocumented in this encounter Additional Health Concerns Infection Onset Date Last Indicated Resolved Time Rule Out COVID-19 07/30/2020 07/30/2020 07/30/2020 7:11 PM PRIVATE CLIENT ADVISOR Rule Out COVID-19 08/30/2020 08/30/2020 08/30/2020 5:05 PM PRIVATE CLIENT ADVISOR Rule Out COVID-19 09/24/2020 09/24/2020 09/24/2020 9:24 AM CDT Rule Out COVID-19 11/05/2020 11/05/2020 11/06/2020 1:09 PM CDT Rule Out COVID-19 05/11/2021 05/11/2021 05/13/2021 10:18 AM CDT Rule Out COVID-19 07/13/2021 07/13/2021 07/14/2021 3:04 PM PRIVATE CLIENT ADVISOR Rule Out COVID-19 07/18/2021 07/18/2021 07/20/2021 1:56 PM PRIVATE CLIENT ADVISOR COVID-19 07/18/2021 07/18/2021 08/08/2021 11:3 9 PM PRIVATE CLIENT ADVISOR Rule Out COVID-19 12/18/2021 12/18/2021 12/19/2021 11:34 AM CDT Rule Out COVID-19 02/24/2022 02/24/2022 02/25/2022 1:08 PM CDT Rule Out COVID-19 04/26/2022 04/26/2022 04/26/2022 6:47 AM CDT Rule Out COVID-19 05/17/2022 05/17/2022 05/17/2022 10:20 PM PRIVATE CLIENT ADVISOR Rule Out COVID-19 06/09/2022 06/09/2022 06/09/2022 9:35 AM PRIVATE CLIENT ADVISOR COVID-19 06/09/2022 06/09/2022 06/30/2022 11:4 1 PM PRIVATE CLIENT ADVISOR Rule Out COVID-19 11/10/2022 11/10/2022 11/11/2022 [...] Depression Total Score: 9 06/04/20 10:35 AM PRIVATE CLIENT ADVISOR documented as of this encounter Care Teams Recessing Machine Operator Relationship Specialty Start Date End Date Marija Edgar APRN CONCRETE GUN OPERATOR [address] [place] [address] PCP - General Nurse Practitioner 04/30/20 04/14/23 Esha Grimm PA-C [address] [place] [phone] PCP - General Family Medicine 05/04/23 Lita Oseguera Personal Advocate & Liaison (PAL) 02/28/20 03/27/23 Rakesh Cid PA-C [address] [place] [address] Assigned PCP 03/02/20 06/07/20 Chanelle Mccann APRN CNM [address] [place] [address] Assigned OBGYN Provider 05/02/2005/09 Lesley Guillermo, W Community Health Worker 05/30/20 06/08/20 Kyara De La Fuente, RN Specialty Composition Floor Setter Neurology 06/04/20 03/05/21 Marija Edgar APRN CONCRETE GUN OPERATOR [address] [place] [address] Assigned PCP 06/08/20 04/29/23 Mynor Broussard MD [address] [place] [address] Assigned Surgical Provider 06/01/20 11/28/21 Keisha Dotson MD [address] [place] [address] [phone] Assigned Neuroscience Provider 06/04/20 04/01/23 Mary Mejia Financial Resource Worker 08/07/20 08/21/20 Stacey Briones, [facility] Lead Composition Floor Setter Primary Care - CC 08/11/20 12/30/20 Lesley Guillermo, W Community Health Worker 08/11/20 10/01/20 Mary Mejia Financial Resource Worker 09/02/20 10/06/20 Lita Oseguera Personal Advocate & Liaison (PAL) Family Medicine 09/10/20 09/21/20 Galo Burrell MD Assigned Heart and Vascular Provider 10/05/20 04/02/22 Cristina Wood Financial Resource Worker 10/07/20 10/14/20 Lesley Guillermo, CHW Community Health Worker 10/23/20 12/30/20 Meredith Bedoya Financial Resource Worker 10/23/20 11/23/20 Cristina Wood Financial Resource Worker 02/09/21 02/09/21 Diana Desir, [facility] [address] [place] [address] Pharmacist Pharmacist 04/17/21 Rain Galaviz PA-C [address] [place] [address] [address] [place], [place] [phone] Physician Inspector Aluminum Boat Dermatology 04/28/21 Summer Lara MD [address] [place] [address] [phone] Assigned OBGYN Provider 05/10/2105/23 Summer Lara MD [address] [place] [address] [phone] Assigned OBGYN Provider 05/31/21 2 Summer Lara MD [address] [place] [address] [phone] Assigned OBGYN Provider 05/24/2105/30 Tavia Wyatt MD [address] [place] [address] [phone] Dermatology 07/14/21 Johnny Murillo MD [address] [facility] [address] [place], [place] [address] Assigned Musculoskeletal Provider 08/30/21 03/17/22 Erica Farrell APRN CONCRETE GUN OPERATOR 6[address] [facility] [address] [place] [address] Nurse Practitioner Cardiovascular Disease 09/09/21 Teresita Bean [facility] [address] [facility] [address] [place] [phone] Pharmacist Pharmacist 09/24/21 09/29/21 Tavia Wyatt MD [address] [place], [place] 929910 Assigned Surgical Provider 11/29/21 05/07/22 Diana Desir, [facility] 3033 [place] [address] Assigned MTM Pharmacist 01/02/22 Rich Barrett MD [facility]3 [place] [address] Physician Ophthalmology 01/21/22 Neil Kent MD 500 [place], [place] 699955 Dermatology 02/24/22 Roney Story DPM [address] [facility] [address] [place], [place] 549[address] Assigned Musculoskeletal Provider 03/20/22 08/13/22 Erica Farrell APRN CONCRETE GUN OPERATOR 1700 [place] [address] Assigned Heart and Vascular Provider 04/03/22 04/16/22 Diana Desir, [facility] 30[address] [place], [place] 455646 Assigned MTM Pharmacist 04/07/22 Jelena David OD [address] [facility] [place] [address] Assigned Surgical Provider 05/08/22 10/08/22 Galo Burrell MD Assigned Heart and Vascular Provider 04/17/22 06/11/22 Livan Sharif MD [address] [place] [address] Cardiovascular Disease 05/14/22 Livan Sharif MD [address] [place] [address] Assigned Heart and Vascular Provider 06/12/22 07/23/22 Catherine Cm MD [address] [place], [place] 8[address]475 Cardiovascular Disease 07/21/22 Valery Veronica, PA-C [address]09 [place], [place] 106405 Physician Inspector Aluminum Boat Dermatology 07/21/22 Catherine Cm MD [address] [place] [address] Assigned Heart and Vascular Provider 07/24/22 11/05/22 Johnny Murillo MD [address] [place] [address] Assigned Musculoskeletal Provider 08/14/22 10/08/22 Brea Quinn APRN CONCRETE GUN OPERATOR 500 [facility], [place] 311625 Nurse Practitioner Dermatology 09/21/22 Brea Quinn APRN CONCRETE GUN OPERATOR 6401 [facility] [place] 231562 Assigned Surgical Provider 10/09/22 05/01/24 [place] [address] [facility] 300 [place] [address] Assigned Musculoskeletal Provider 10/09/22 05/01/24 Livan Sharif MD [address] [facility] [address] [place] [address] Assigned Heart and Vascular Provider 11/06/22 11/12/22 Catherine Cm MD 6[address] [facility] [address] [place] 643705 Assigned Heart and Vascular Provider 11/13/22 05/27/23 Sydnie Martinez, VJ Personal Advocate & Liaison (PAL) Family Medicine 03/28/23 07/31/23 Alfonso Renteria MD [address] [facility] 200 [place] [address] Assigned Neuroscience Provider 04/02/23 09/29/24 Cheng Todd PA-C [address] [place] [address] Assigned PCP 04/30/23 07/15/23 Lomeli Radha ARLENE Stovall CONCRETE GUN OPERATOR 6[address] [facility] [address] [place] [address] Assigned Heart and Vascular Provider 05/28/23 11/29/24 Jelena David OD [address] [facility] [place] [address] MD Ophthalmology 06/15/23 Pao Joseph, VJ Personal Advocate & Liaison (PAL) Nurse 08/01/23 11/07/23 Esha Grimm PA-C [address] [place] [phone] Assigned PCP 07/16/23 Valery Veronica PA-C [address] [place] [address] 750855 Physician Inspector Aluminum Boat Dermatology 09/19/23 Rey Tay MD [address] [place] [address] 104195 Gastroenterology 09/20/23 Rocky Zepeda DO [address] [place] [address] 043985 Physician Gastroenterology 09/20/23 Philip Dumont MD [address] [place] [address] 270075 Physician Ophthalmology 09/22/23 Meredith Carrera PA-C 909 [place] [address] Assigned Gastroenterology Provider 11/01/23 Neil Kent MD [address] [place] [address] Dermatology 11/02/23 [place] [address] [place] [address] 147857 Neurological Surgery 12/26/23 Audrey Waite PA-C 500 [place] [address] Physician Inspector Aluminum Boat Dermatology 02/28/24 Valery Veronica PA-C 463924 [place], [place] 512[address] Physician Inspector Aluminum Boat Dermatology 04/10/24 Herminia Hatch MD [address] [place] [address] [phone] Assigned Rheumatology Provider 07/02/24 Jelena David OD [address] [place] [address] [place] [address] Ophthalmology 08/30/24 [place] [address] [place] [address] Assigned Neuroscience Provider 09/30/24 Maru Man PA-C [address] [place] [address] Physician Inspector Aluminum Boat Dermatology 10/03/24 Maru Man PA-C [address] [place] [address] Physician Inspector Aluminum Boat Dermatology 10/22/24 Jelena David OD [address] [facility] [place] [address] Assigned Surgical Provider 10/31/24 Fabiano Correa NP [address] [place] [address] Assigned Heart and Vascular Provider 11/30/24 Walter Nowak MD [address] [place] [address] Physician Clinical Cardiac Electrophysiology 03/01/25 Liset Márquez MD [address] [place] [address] safety aide 03/13/25 Lauren Coronado, [facility] [address] [place] [address] [phone] Pharmacist Pharmacist 04/15/25 documented as of this encounter
--- OUTSIDE RECORDS SUMMARY | 2025-04-26 23:57 | XMS_ITS | Encounter Summary ---
Author Organization [facility] Address [address] [place] [address] Care Team Providers Care Mold Chipper Name Role Phone Diana Desir [facility] Unavailable Rain Galaviz PA-C Unavailable Tavia Wyatt MD Unavailable [phone] Erica Farrell APRN BAKERY TEAM LEADER Unavailable Rich Barrett MD Unavailable [phone] Neil Kent MD Unavailable Diana Desir [facility] Unavailable Livan Sharif MD Unavailable Catherine Cm MD Unavailable + Valery Veronica PA-C Unavailable Brea Quinn PERSONAL SECRETARY BAKERY TEAM LEADER Unavailable Brea Quinn PERSONAL SECRETARY BAKERY TEAM LEADER Unavailable Jose Francisco Johnson MD Unavailable Alfonso Renteria MD Unavailable [phone] Esha Grimm PA-C Primary Care Provider Lomeli, Radha E PERSONAL SECRETARY BAKERY TEAM LEADER Unavailable Jelena David OD Unavailable [phone] Pao Joseph RN Unavailable Unavailable Esha Grimm Adam PA-C Unavailable [phone] Valery Veronica PA-C Unavailable [phone] Rey Tay MD Unavailable Rocky Zepeda DO Unavailable Philip Dumont MD Unavailable [phone] Meredith Carrera PA-C Unavailable Neil Kent MD Unavailable Juan Pablo Emmanuel MD Unavailable Audrey Waite PA-C Unavailable Valery Veronica PA-C Unavailable [phone] Herminia Hatch MD Unavailable Jelena David OD Unavailable Juan Pablo Emmanuel MD Unavailable Maru Man PA-C Unavailable Maru Man PA-C Unavailable Jelena David OD Unavailable Fabiano Correa NP Unavailable Walter Nowak MD Unavailable Liset Márquez MD Unavailable Lauren Coronado [facility] Unavailable [phone] Encounter Details Date Type Department Care Team (Late st Contact Info) Description 10/24/2023 [facility] Medical Advice [facility] G[facility] Clinic [address]th [place] [address] Kenneth Denson Social History Tobacco [...] [facility] - Occupational Stress [...] exercise at this level? 30 min 03/10/2023 Bingham Depression Scale Answer Date Recorded Bingham Depression Score 5 01/14/2021 Last EPDS Self [...] PM CDT Legal Sex Female 4:13 AM DEMAND MANAGER Gender Identity Female 03/02/2021 5:45 PM CDT Sexual Orientation Straight 02/28/2020 12 :51 AM CDT documented as of this encounter Plan of Treatment Upcoming Encounters Date Type Department Care Team (Late st Contact Info) Description 04/30/2025 10:30 AM CDT Office Visit [facility] [address], [address] [place] [address] Liset Márquez MD [address] [facility] 300 [place] [address] 05/30/2025 2:45 PM DEMAND MANAGER Office Visit [facility] [address] [phone] Fabiano Correa, BRYCE [address] [facility] [place], [place] [address] Walter Nowak MD 47[address] [facility] [place], [place] [address] 08/07/2025 8:15 AM DEMAND MANAGER Office Visit [facility] [address] [phone] Lucien Grimes MD [address] [phone] 08/21/2025 9:00 AM DEMAND MANAGER Office Visit [address] [phone] Neil Kent MD [address] [place] [address] [phone] 10/09/2025 10:45 AM CDT Virtual Visit [facility] Gastroenterology [address] 4th [place] [phone] Meredith Carrera PAUcheC [address] [place] [address] [phone] documented as of this encounter Visit Diagnoses [...] Depression Total Score: 4 06/20/20 8:40 AM DEMAND MANAGER documented as of this encounter Care Teams Mold Chipper Relationship Specialty Start Date End Date Esha Grimm PA-C [address] [place] [phone] PCP - General Family Medicine 05/04/23 Diana Desir, [facility] 3033 [place], [place] 674836 Pharmacist Pharmacist 04/17/21 Rain Galaviz PA-C [address] [place] [address] ENMA K[place]UTSON [address] Physician Grease Buffer Dermatology 04/28/21 Tavia Wyatt MD [address] [place] [address] [place] [address] Dermatology 07/14/21 Erica Farrell APRN BAKERY TEAM LEADER [address] [place] [phone] [facility] [address] Nurse Practitioner Cardiovascular Disease 09/09/21 Rich Barrett MD [address] [place] [address]15 Physician Ophthalmology 01/21/22 Neil Kent MD 500 [place], [place] 771785 Dermatology 02/24/22 Diana Desir, [facility] 3033 [place], [place] 131346 Assigned [place] Pharmacist 04/07/22 Livan Sharif MD [address] [facility]00 [place] [address] Cardiovascular Disease 05/14/22 Catherine Cm MD 6[address] [facility] [place] [address] [place] [address] Cardiovascular Disease 07/21/22 Valery Veronica, PA-C 909 [place], [place] [address]555 Physician Grease Buffer Dermatology 07/21/22 Brea Quinn APRN BAKERY TEAM LEADER 500 [place], [place] 2[address]35 Nurse Practitioner Dermatology 09/21/22 Brea Quinn APRN BAKERY TEAM LEADER [address] [place] [address] [place] 484352 Assigned Surgical Provider 10/09/22 05/01/24 [place] [address] [address] [facility] 300 [place] [address] Assigned Musculoskeletal Provider 10/09/22 05/01/24 Alfonso Renteria MD 5775 [facility] 200 [place], [place] 302066 Assigned Neuroscience Provider 04/02/23 09/29/24 Radha Lomeli APRN BAKERY TEAM LEADER 6405 [facility] [address] [address] [place] [address] Assigned Heart and Vascular Provider 05/28/23 11/29/24 Jelena David OD [address] [facility] [address] Ophthalmology 06/15/23 Pao Joseph, VJ Personal Advocate & Liaison (PAL) Nurse 08/01/23 11/07/23 Esha Grimm PA-C [address] [place] [phone] Assigned PCP 07/16/23 Valery Veronica PA-C [address] [place] [address] 563985 Physician Grease Buffer Dermatology 09/19/23 Rey Tay MD [address] [place] [address] [phone] Gastroenterology 09/20/23 Rocky Zepeda DO [address] [place] [address] Physician Gastroenterology 09/20/23 Philip Dumont MD [address] [place] [address] Physician Ophthalmology 09/22/23 Meredith Carrera PA-C [address] [place] [address] Assigned Gastroenterology Provider 11/01/23 Neil Kent MD [address] [place] [address] MD Dermatology 11/02/23 [place] [address] [place] [address] Neurological Surgery 12/26/23 Audrey Waite PA-C [address] [place] [address] Physician Grease Buffer Dermatology 02/28/24 Valery Veronica PA-C [address] [place] [address] Physician Grease Buffer Dermatology 04/10/24 Herminia Hatch MD [facility]5 [place], [place] [phone] Assigned Rheumatology Provider 07/02/24 [place] [address] [place] [address] [place] [address] Ophthalmology 08/30/24 [place] [address] [address] [facility] 300 [place] [address] Assigned Neuroscience Provider 09/30/24 Maru Man PA-C [address], [place] [address] Physician Grease Buffer Dermatology 10/03/24 Maru Man PA-C [address] [place] [address] Physician Grease Buffer Dermatology 10/22/24 Jelena David OD [address] [facility] [address] Assigned Surgical Provider 10/31/24 Fabiano [place], ACOUSTIC INTELLIGENCE SPECIALIST [address] [place] [address]255 Assigned Heart and Vascular Provider 11/30/24 Walter Nowak MD [address] [place] [address] Physician Clinical Cardiac Electrophysiology 03/01/25 Liset Márquez MD [address] [facility] 300 [place] [address] repairer finished metal 03/13/25 Lauren Coronado, [facility] 909 [place], [place] 035945 Pharmacist Pharmacist 04/15/25 documented as of this encounter
--- OUTSIDE RECORDS SUMMARY | 2025-04-26 23:57 | XMS_ITS | Encounter Summary ---
Author Organization [place] Address [address] [place] [address] Care Team Providers Care Typist Name Role Phone Lita Oseguera Unavailable Unavailable Marija Edgar APRN ICE PLATFORM SUPERVISOR Primary Care Provider + Chanelle Mccann APRN CNM Unavailab le Kyara De La Fuente RN Unavailable [phone] Marija Edgar APRN ICE PLATFORM SUPERVISOR Unavailable [phone] Mynor Broussard MD Unavailable [phone] Keisha Dotson MD Unavailable Mary Mejia Unavailable Unavailable Stacey Briones CHIEF BANK EXAMINER Unavailable Lesley Guillermo CHW Unavailable Mary Mejia Unavailable Unavailable Lita Oseguera Unavailable Unavailable Galo Burrell MD Unavailable Unavailable Cristina Wood Unavailable Lesley Guillermo CHW Unavailable Meredith Bedoya Unavailable Unavailable Cristina Wood Unavailable Diana Desir [facility] Unavailable Rain Galaviz PA-C Unavailable Summer Lara MD Unavailable [phone] Summer Lara MD Unavailable [phone] Summer Lara MD Unavailable Tavia Wyatt MD Unavailable [phone] Johnny Murillo MD Unavailable [phone] Erica Farrell APRN ICE PLATFORM SUPERVISOR Unavailable VikasTeresita [facility] Unavailable Tavia Wyatt MD Unavailable [phone] Diana Desir [facility] Unavailable [phone] Rich Barrett MD Unavailable [phone] Neil Kent MD Unavailable Roney Story [facility] Unavailable Erica Farrell APRN ICE PLATFORM SUPERVISOR Unavailable Diana Desir [facility] Unavailable [phone] Jelena David OD Unavailable Galo Burrell MD Unavailable Unavailable Livan Sharif MD Unavailable Livan Sharif MD Unavailable Catherine Cm MD Unavailable + Valery Veronica PA-C Unavailable [phone] Catherine Cm MD Unavailable + Johnny Murillo MD Unavailable [phone] Brea Quinn APRN ICE PLATFORM SUPERVISOR Unavailable [phone] Brea Quinn APRN ICE PLATFORM SUPERVISOR Unavailable [phone] Jose Francisco Johnson MD Unavailable Livan Sharif MD Unavailable Catherine Cm MD Unavailable + Sydnie [place] RN Unavailable Unavailable Alfonso Renteria MD Unavailable [phone] Esha Grimm PA-C Primary Care Provider Cheng Todd PA-C Unavailable Radha Lomeli APRN ICE PLATFORM SUPERVISOR Unavailable Jelena David OD Unavailable Pao Joseph RN Unavailable Unavailable Esha Grimm PA-C Unavailable [phone] Valery Veronica PA-C Unavailable Rey Tay [...] David OD Unavailable Fabiano Correa NP Unavailable aWlter Nowak MD Unavailable Liset Márquez MD Unavailable Lauren Coronado [facility] Unavailable [phone] Encounter Details Date Type Department Care Team (Late st Contact Info) Description 07/10/2020 MyC Medical Advice [facility] [place] [address] [place] [address] Mynor Broussard MD [address] [place] [address] Social History Tobacco Use Types [...] PM CDT Legal Sex Female 4:13 AM FAN ENGINE ENGINEER Gender Identity Female 03/02/2021 5:45 PM CDT Sexual Orientation Straight 02/28/2020 12 :51 AM CDT COVID-19 Exposure Response Date Recorded In the last month, have you been in contact with someone who was confirmed or suspected to have Coronavirus / COVID-19? No / Unsure 06/24/2020 3:01 PM FAN ENGINE ENGINEER documented as of this encounter Plan of Treatment Upcoming Encounters Date Type Department Care Team (Late st Contact Info) Description 04/30/2025 10:30 AM CDT Office Visit [facility] [place] [address], [address] [place] [phone] Liset Márquez MD [address] [place] [address] 05/30/2025 2:45 PM FAN ENGINE ENGINEER Office Visit [facility] [address] [facility] [address] [place] [address] Fabiano Correa NP [address] [place] [address] Walter Nowak MD [address] [place] [address] 08/07/2025 8:15 AM FAN ENGINE ENGINEER Office Visit [facility] [address] [facility] [address] [place] [phone] Lucien Grimes MD [address] [place] [id number] 08/21/2025 9:00 AM FAN ENGINE ENGINEER Office Visit [facility] [address] [phone] Neil Kent MD [address] [place] [address] 786305 10/09/2025 10:45 AM CDT Virtual Visit [facility] Gastroenterology [address]th [place] [phone] Meredith Carrera PA-C [address] [place] [address] 485155 documented as of this encounter Visit Diagnoses Not on filedocumented in this encounter Additional Health Concerns Infection Onset Date Last Indicated Resolved Time Rule Out COVID-19 07/30/2020 07/30/2020 07/30/2020 7:11 PM FAN ENGINE ENGINEER Rule Out COVID-19 08/30/2020 08/30/2020 08/30/2020 5:05 PM FAN ENGINE ENGINEER Rule Out COVID-19 09/24/2020 09/24/2020 09/24/2020 9:24 AM CDT Rule Out COVID-19 11/05/2020 11/05/2020 11/06/2020 1:09 PM CDT Rule Out COVID-19 05/11/2021 05/11/2021 05/13/2021 10:18 AM CDT Rule Out COVID-19 07/13/2021 07/13/2021 07/14/2021 3:04 PM FAN ENGINE ENGINEER Rule Out COVID-19 07/18/2021 07/18/2021 07/20/2021 1:56 PM FAN ENGINE ENGINEER COVID-19 07/18/2021 07/18/2021 08/08/2021 11:3 9 PM FAN ENGINE ENGINEER Rule Out COVID-19 12/18/2021 12/18/2021 12/19/2021 11:34 AM CDT Rule Out COVID-19 02/24/2022 02/24/2022 02/25/2022 1:08 PM CDT Rule Out COVID-19 04/26/2022 04/26/2022 04/26/2022 6:47 AM CDT Rule Out COVID-19 05/17/2022 05/17/2022 05/17/2022 10:20 PM FAN ENGINE ENGINEER Rule Out COVID-19 06/09/2022 06/09/2022 06/09/2022 9:35 AM FAN ENGINE ENGINEER COVID-19 06/09/2022 06/09/2022 06/30/2022 11:4 1 PM FAN ENGINE ENGINEER Rule Out COVID-19 11/10/2022 11/10/2022 11/11/2022 [...] Total Score: 9 06/25/20 20 7:04 AM FAN ENGINE ENGINEER documented as of this encounter Care Teams Typist Relationship Specialty Start Date End Date Marija Edgar APRN ICE PLATFORM SUPERVISOR PCP - General Nurse Practitioner 04/30/20 04/14/23 Esha Grimm PA-C [address] [place] [phone] PCP - General Family Medicine 05/04/23 Lita Oseguera Personal Advocate & Liaison (PAL) 02/28/20 03/27/23 Chanelle Mccann APRN CNM [address] [place] [address] Assigned OBGYN Provider 05/02/2005/09 Kyara De La Fuente, RN Specialty Integrity Analyst Neurology 06/04/20 03/05/21 Marija Edgar APRN ICE PLATFORM SUPERVISOR Assigned PCP 06/08/20 04/29/23 Mynor Broussard MD [address] [place] [address] 679605 Assigned Surgical Provider 06/01/20 11/28/21 Keisha Dotson MD [address] [place] [address] [phone] Assigned Neuroscience Provider 06/04/20 04/01/23 Mary Mejia Financial Resource Worker 08/07/20 08/21/20 Stacey Briones, [facility] Lead Integrity Analyst Primary Care - CC 08/11/20 12/30/20 Lesley Guillermo, [facility] Community Health Worker 08/11/20 10/01/20 Mary Mejia Financial Resource Worker 09/02/20 10/06/20 Lita Oseguera Personal Advocate & Liaison (PAL) Family Medicine 09/10/20 09/21/20 Galo Burrell MD Assigned Heart and Vascular Provider 10/05/20 04/02/22 Cristina Wood Financial Resource Worker 10/07/20 10/14/20 Lesley Guillermo, [facility] Community Health Worker 10/23/20 12/30/20 Meredith Bedoya Financial Resource Worker 10/23/20 11/23/20 Cristina Wood Financial Resource Worker 02/09/21 02/09/21 Diana Desir, [facility] [place], [place] 099736 Pharmacist Pharmacist 04/17/21 Rain Galaviz PA-C [address] [place] [address] [address] [facility] [facility] [place] [phone] Physician Fruit Press Operator Dermatology 04/28/21 Summer Lara MD [address] [place] [address] [phone] Assigned OBGYN Provider 05/10/2105/23 Summer Lara MD [address] [place] [address] [phone] Assigned OBGYN Provider 05/31/21 2 Summer Lara MD [address] [place] [address] 231994 Assigned OBGYN Provider 05/24/2105/30 Tavia Wyatt MD [address] [place] [address] Dermatology 07/14/21 Johnny Murillo MD [facility] S [facility] [address] [place] [address] Assigned Musculoskeletal Provider 08/30/21 03/17/22 Erica Farrell APRN ICE PLATFORM SUPERVISOR [address] [facility] [address] [place] [address] Nurse Practitioner Cardiovascular Disease 09/09/21 Teresita Bean [facility] [address] [place], [place] [phone] Pharmacist Pharmacist 09/24/21 09/29/21 Tavia Wyatt MD [facility] [place] [address] Assigned Surgical Provider 11/29/21 05/07/22 Diana Desir, [facility] [place], [place] 339366 Assigned MTM Pharmacist 01/02/22 Rich Barrett MD [facility] [place] [address] Physician Ophthalmology 01/21/22 Neil Kent MD 500 [place] [address] Dermatology 02/24/22 Roney Story DPM [address] [facility] [address] [place], [place] 173107 Assigned Musculoskeletal Provider 03/20/22 08/13/22 Erica Farrell APRN ICE PLATFORM SUPERVISOR 1700 [place] [address] Assigned Heart and Vascular Provider 04/03/22 04/16/22 [facility] 3033 [place] [address] Assigned MTM Pharmacist 04/07/22 Jelena David OD [address] [place] [address] Assigned Surgical Provider 05/08/22 10/08/22 Galo Burrell MD Assigned Heart and Vascular Provider 04/17/22 06/11/22 Livan Sharif MD [address] [address] [place] [address] Cardiovascular Disease 05/14/22 Livan Sharif MD [address] [address] [place] [address] Assigned Heart and Vascular Provider 06/12/22 07/23/22 Catherine Cm MD [address] [place] [address] Cardiovascular Disease 07/21/22 Valery Veronica PA-C [address]09 [place] [address] Physician Fruit Press Operator Dermatology 07/21/22 Catherine Cm MD [address] [facility] [address] [place] 757195 Assigned Heart and Vascular Provider 07/24/22 11/05/22 Johnny Murillo MD [facility] [address] [address] Assigned Musculoskeletal Provider 08/14/22 10/08/22 Brea Quinn APRN ICE PLATFORM SUPERVISOR [address] [place] [address] 179255 Nurse Practitioner Dermatology 09/21/22 Brea Quinn APRN ICE PLATFORM SUPERVISOR [address] [place] [address] [place] [address] Assigned Surgical Provider 10/09/22 05/01/24 [place] [address] [place] [address] [place] [address] Assigned Musculoskeletal Provider 10/09/22 05/01/24 Livan Sharif MD [address] [place] [address] Assigned Heart and Vascular Provider 11/06/22 11/12/22 Catherine Cm MD [address] [place] [address] Assigned Heart and Vascular Provider 11/13/22 05/27/23 Sydnie [place] RN Personal Advocate & Liaison (PAL) Family Medicine 03/28/23 07/31/23 Alfonso Renteria MD [address] [facility] [address] [place] [address] Assigned Neuroscience Provider 04/02/23 09/29/24 Cheng Todd PA-C [address] [place] [address] [phone] Assigned PCP 04/30/23 07/15/23 Radha Lomeli APRN ICE PLATFORM SUPERVISOR [address] [place] 389095 Assigned Heart and Vascular Provider 05/28/23 11/29/24 Jelena David OD [address] [place] [address] Ophthalmology 06/15/23 Pao Joseph, VJ Personal Advocate & Liaison (PAL) Nurse 08/01/23 11/07/23 Esha Grimm PA-C [address] [place] [phone] Assigned PCP 07/16/23 Valery Veronica PA-C [address] [place] [address] 011085 Physician Fruit Press Operator Dermatology 09/19/23 Rey Tay MD [address] [place] [address] 079125 MD Gastroenterology 09/20/23 Rocky Zepeda DO [address] [place] [address] 098865 Physician Gastroenterology 09/20/23 Philip Dumont MD 6 [place] [address] Physician Ophthalmology 09/22/23 Meredith Carrera PA-C [address] [place] [address] 875705 Assigned Gastroenterology Provider 11/01/23 Neil Kent MD [address] [place] [address] Dermatology 11/02/23 [place] [address] [facility] [place] [address] Neurological Surgery 12/26/23 Audrey Waite PA-C [address] [place] [address] Physician Fruit Press Operator Dermatology 02/28/24 Valery Veronica PA-C [address] [place] [address] Physician Fruit Press Operator Dermatology 04/10/24 Herminia Hatch MD [facility]5 [place], [place] [phone] Assigned Rheumatology Provider 07/02/24 Jelena David OD [address] [place] [address] Ophthalmology 08/30/24 [place] [address] [place] [address] Assigned Neuroscience Provider 09/30/24 Maru Man PA-C [address] [place] [address] Physician Fruit Press Operator Dermatology 10/03/24 Maru Man PA-C [address] [place] [address] Physician Fruit Press Operator Dermatology 10/22/24 Jelena David OD [facility] [place] [address] Assigned Surgical Provider 10/31/24 Fabiano Correa NP [address] [place] [address] Assigned Heart and Vascular Provider 11/30/24 Walter Nowak MD [address] [place] [place] 638665 Physician Clinical Cardiac Electrophysiology 03/01/25 Liset Márquez MD [address] [address] public health dietitian 03/13/25 Lauren Coronado, [facility] [address] [place] [address] Pharmacist Pharmacist 04/15/25 documented as of this encounter
--- OUTSIDE RECORDS SUMMARY | 2025-04-26 23:57 | XMS_ITS | Encounter Summary ---
Author Organization [place] Address [address] [place] [address] Care Team Providers Care Chemical Laboratory Scientist Name Role Phone Diana Desir [facility] Unavailable Rain GalavizC Unavailable Tavia Wyatt MD Unavailable [phone] Erica Farrell APRN REINSURANCE CLERK Unavailable Rich Barrett MD Unavailable [phone] Neil Kent MD Unavailable ThangKendrickDiana Stanislav [facility] Unavailable [phone] Livan Sharif MD Unavailable Catherine Cm MD Unavailable + Valery Veronica-C Unavailable Brea Quinn APRN REINSURANCE CLERK Unavailable Esha Grimm PA-C Primary Care Provider [phone] Jelena David OD Unavailable [phone] Esha Grimm PA-C Unavailable [phone] Valery Veronica PA-C Unavailable Rey Tay MD Unavailable Duane Rocky Unavailable Philip Dumont MD Unavailable Meredith Carrera PA-C Unavailable [phone] Neil Kent MD Unavailable Juan Pablo Emmanuel MD Unavailable Audrey Waite PA-C Unavailable Valery Veronica PA-C Unavailable Herminia Hatch MD Unavailable Jelena David OD Unavailable [phone] Juan Pablo Emmanuel MD Unavailable [phone] Maru Man PA-C Unavailable Maru Man PA-C Unavailable Jelena David OD Unavailable Fabiano Correa NP Unavailable Walter Nowak MD Unavailable Liset Márquez MD Unavailable Lauren Coronado [facility] Unavailable [phone] Encounter Details Date Type Department Care Team (Late st Contact Info) Description 04/15/2025 [facility] Medical Advice [facility] Dermatology [facility] 9[address] [facility] 3rd [place] [address] Lauren Coronado, [facility] 909 [place] [address] Social History Tobacco Use Types [...] Answer Date Recorded PHQ-2 Score 1 04/11/2025 [facility] - [...] exercise at this level? 20 min 05/07/2024 [place] Depression Scale Answer Date Recorded [...] PM CDT Legal Sex Female 4:13 AM ALLERGY AND IMMUNOLOGY SPECIALIST Gender Identity Female 03/02/2021 5:45 PM CDT Sexual Orientation Straight 02/28/2020 12 :51 AM CDT documented as of this encounter Plan of Treatment Upcoming Encounters Date Type Department Care Team (Late st Contact Info) Description 04/30/2025 10:30 AM CDT [facility] Visit [facility] [address], [address] [place] [address] Liset Márquez MD [address] [place] [address] 05/30/2025 2:45 PM ALLERGY AND IMMUNOLOGY SPECIALIST Office Visit [facility] [address] [facility] [address] [place] [phone] Fabiano Correa, BRYCE [address] [place], [place] 249265 Walter Nowak MD 6138 [place], [place] 203955 08/07/2025 8:15 AM ALLERGY AND IMMUNOLOGY SPECIALIST Office Visit [facility] [address] [facility] [address] [place] [phone] Lucien Grimes MD [address] [place] 7402600 [place], [place] [address] 08/21/2025 9:00 AM ALLERGY AND IMMUNOLOGY SPECIALIST Office Visit [facility] [address] [address] Neil Kent MD [address] [place] [address] 655575 10/09/2025 10:45 AM CDT Virtual Visit [facility] [address] 4th [place] [address] Meredith Carrera PA-C [address] [place] [address] 608055 documented as of this encounter Visit Diagnoses Not on filedocumented in this encounter Additional Health Concerns Assessment Noted Time PHQ-9 Depression Total Score: 5 04/11/20 25 9:17 AM CDT documented as of this encounter Care Teams Chemical Laboratory Scientist Relationship Specialty Start Date End Date Esha Grimm PA-C [address] [facility] [place] [address] PCP - General Family Medicine 05/04/23 Diana Desir, [facility] [address] [place] [address] Pharmacist Pharmacist 04/17/21 Rain Galaviz PA-C [address] [place] [address] [address] [facility] [place] [address] Physician Insulator Tester Dermatology 04/28/21 Tavia Wyatt MD [address] [place] [address] [address] [facility] [place] [address] Dermatology 07/14/21 Erica Farrell APRN REINSURANCE CLERK [address] [place] [address] Nurse Practitioner Cardiovascular Disease 09/09/21 Rich Barrett MD [address] [place] [address] Physician Ophthalmology 01/21/22 Neil Kent MD 500 [place], [place] 328645 Dermatology 02/24/22 Diana Desir, [facility] 3033 [place] [address] Assigned MTM Pharmacist 04/07/22 Livan Sharif MD [address] [place], [place] 715[address] Cardiovascular Disease 05/14/22 Catherine Cm MD [address] [place], [place] 891595 Cardiovascular Disease 07/21/22 Valery Veronica, PA-C [address] [place] [address] 135745 Physician Insulator Tester Dermatology 07/21/22 Brea Quinn APRN REINSURANCE CLERK [address] [place] [address] 508525 Nurse Practitioner Dermatology 09/21/22 Jelena David OD [address] [place] [address] [place] [address] MD Ophthalmology 06/15/23 Esha Grimm PA-C [address] [place] [address] Assigned PCP 07/16/23 Valery Veronica, [place] [address] [place] [address] 856165 Physician Insulator Tester Dermatology 09/19/23 Rey Tay MD [address] [place] [address] 922855 Gastroenterology 09/20/23 Rocky Zepeda DO [address] [place] [address] 866138 Physician Gastroenterology 09/20/23 Philip Dumont MD 6 [place] [address] Physician Ophthalmology 09/22/23 Meredith Carrera PA-C [address] [place] [address] 893765 Assigned Gastroenterology Provider 11/01/23 Neil Kent MD [address] [place] [address] 550870 MD Dermatology 11/02/23 [place] [address] [facility] [place] [address] Neurological Surgery 12/26/23 Audrey Waite PA-C [address] [place] [address] 563715 Physician Insulator Tester Dermatology 02/28/24 Valery Veronica PA-C 136211 [address], [place] [address] Physician Insulator Tester Dermatology 04/10/24 Herminia Hatch MD [facility] [place], [place] [phone] Assigned Rheumatology Provider 07/02/24 Jelena David OD [address] [facility] [address] Ophthalmology 08/30/24 [place] [address] [facility] 300 [place] [address] Assigned Neuroscience Provider 09/30/24 Maru Man PA-C [address] [place] [address] Physician Insulator Tester Dermatology 10/03/24 Maru Man PA-C [address] [place] [address] 812310 Physician Insulator Tester Dermatology 10/22/24 Jelena David OD [address] [facility] [address] Assigned Surgical Provider 10/31/24 Fabiano Correa, BRYCE [address] [place] [place] 659875 Assigned Heart and Vascular Provider 11/30/24 Walter Nowak MD [address] [place] [address] Physician Clinical Cardiac Electrophysiology 03/01/25 Liset Márquez MD [address] [facility] 300 [place] [address] egg producer 03/13/25 Lauren Coronado, [facility] 909 [place], [place] 578145 Pharmacist Pharmacist 04/15/25 documented as of this encounter
--- OUTSIDE RECORDS SUMMARY | 2025-04-26 23:58 | XMS_ITS | Encounter Summary ---
Author Organization [facility] Address [address] [place] [address] Care Team Providers Care Instruction Dean Name Role Phone Lita Oseguera Unavailable Unavailable Rakesh Cid PA-C Unavailable Marija Edgar APRN TRANSPORTATION PLANNER Primary Care Provider + Chanelle Mccann APRN CN Unavailab le Lesley Guillermo CHW Unavailable [phone] Kyara De La Fuente RN Unavailable [phone] Marija Edgar APRN [facility] Unavailable Mynor Broussard MD Unavailable [phone] Keisha Dotson MD Unavailable Mary Mejia Unavailable Unavailable Stacey Briones SUPERVISOR PRE WAVE Unavailable Lesley Guillermo CHW Unavailable [phone] Mary Mejia Unavailable Unavailable Lita Oseguera Unavailable Unavailable Galo Burrell MD Unavailable Unavailable Cristina Wood Unavailable Lesley Guillermo CHW Unavailable Meredith Bedoya Unavailable Unavailable Cristina Wood Unavailable Diana Desir [facility] Unavailable Rain Galaviz PA-C Unavailable Summer Lara MD Unavailable [phone] Summer Lara MD Unavailable Summer Lara MD Unavailable [phone] Tavia Wyatt MD Unavailable [phone] Johnny Murillo MD Unavailable [phone] Erica Farrell APRN TRANSPORTATION PLANNER Unavailable Teresita Bean H Unavailable Tavia Wyatt MD Unavailable [phone] Diana Desir [facility] Unavailable [phone] Rich Barrett MD Unavailable [phone] Neil Kent MD Unavailable Ronye Story DPM Unavailable Erica Farrell APRN TRANSPORTATION PLANNER Unavailable + Diana Desir [facility] Unavailable [phone] FrankieJelena OD Unavailable Galo Burrell MD Unavailable Unavailable Livan Sharif MD Unavailable + Livan Sharif MD Unavailable + Catherine Cm MD Unavailable + Valery Veronica PA-C Unavailable [phone] Catherine Cm MD Unavailable + Johnny Murillo MD Unavailable [phone] Brea Quinn APRN TRANSPORTATION PLANNER Unavailable [phone] [place], Brea P MOTOR EXPRESS CLERK TRANSPORTATION PLANNER Unavailable [phone] Jose Francisco Johnson MD Unavailable Livan Sharif MD Unavailable Catherine Cm MD Unavailable + Sydnie Martinez RN Unavailable Unavailable Alfonso Renteria MD Unavailable [phone] Esha Grimm PA-C Primary Care Provider Cheng Todd PA-C Unavailable Armani Radha Sia MOTOR EXPRESS CLERK TRANSPORTATION PLANNER Unavailable Jelena David OD Unavailable [phone] Pao Joseph RN Unavailable Unavailable Esha Grimm PA-C Unavailable [phone] Valery Veronica PA-C Unavailable Rey Tay MD Unavailable Rocky Zepeda DO Unavailable Philip Dumont MD Unavailable [phone] Meredith Carrera PA-C Unavailable [phone] Neil Kent MD Unavailable Juan Pablo Emmanuel MD Unavailable Audrey Waite PA-C Unavailable Valery Veronica PA-C Unavailable Herminia Hatch MD Unavailable Jelena David OD Unavailable [phone] Juan Pablo Emmanuel MD Unavailable Maru Man PA-C Unavailable [phone] Maru Man PA-C Unavailable [phone] Jelena David OD Unavailable Fabiano Correa NP Unavailable Walter Nowak MD Unavailable Liset Márquez MD Unavailable Lauren Coronado [facility] Unavailable Encounter Details Date Type Department Care Team (Late st Contact Info) Description 05/16/2020 MyC Medical Advice [address] [phone] Jerome Ferrell, RN Social History [...] PM CDT Legal Sex Female 4:13 AM BATTER DEPOSITOR Gender Identity Female 03/02/2021 5:45 PM CDT Sexual Orientation Straight 02/28/2020 12 :51 AM CDT COVID-19 Exposure Response Date Recorded In the last month, have you been in contact with someone who was confirmed or suspected to have Coronavirus / COVID-19? No / Unsure 05/12/2020 9:03 AM BATTER DEPOSITOR documented as of this encounter Plan of Treatment Upcoming Encounters Date Type Department Care Team (Late st Contact Info) Description 04/30/2025 10:30 AM CDT Office Visit [facility] [address] [place] [address] Liset Márquez MD [address] [place] [address] 05/30/2025 2:45 PM BATTER DEPOSITOR Office Visit [facility] Heart [facility] [address] [facility] [address] [place] [address] Fabiano Correa, BRYCE [address] [place] [address] Walter Nowak MD [address] [place] [address] 08/07/2025 8:15 AM BATTER DEPOSITOR Office Visit [facility] Heart [facility] [address] [facility] [address] [place] [phone] Lucien Grimes MD [address] [place] [address] 08/21/2025 9:00 AM BATTER DEPOSITOR Office Visit [facility] [address] [phone] Neil Kent MD [address] [place] [address] 10/09/2025 10:45 AM CDT Virtual Visit [facility] [address] [phone] Meredith Carrera PA-C [address] [place] [address] 586355 documented as of this encounter Visit Diagnoses Not on filedocumented in this encounter Additional Health Concerns Infection Onset Date Last Indicated Resolved Time Rule Out COVID-19 07/30/2020 07/30/2020 07/30/2020 7:11 PM BATTER DEPOSITOR Rule Out COVID-19 08/30/2020 08/30/2020 08/30/2020 5:05 PM BATTER DEPOSITOR Rule Out COVID-19 09/24/2020 09/24/2020 09/24/2020 9:24 AM CDT Rule Out COVID-19 11/05/2020 11/05/2020 11/06/2020 1:09 PM CDT Rule Out COVID-19 05/11/2021 05/11/2021 05/13/2021 10:18 AM CDT Rule Out COVID-19 07/13/2021 07/13/2021 07/14/2021 3:04 PM BATTER DEPOSITOR Rule Out COVID-19 07/18/2021 07/18/2021 07/20/2021 1:56 PM BATTER DEPOSITOR COVID-19 07/18/2021 07/18/2021 08/08/2021 11:3 9 PM BATTER DEPOSITOR Rule Out COVID-19 12/18/2021 12/18/2021 12/19/2021 11:34 AM CDT Rule Out COVID-19 02/24/2022 02/24/2022 02/25/2022 1:08 PM CDT Rule Out COVID-19 04/26/2022 04/26/2022 04/26/2022 6:47 AM CDT Rule Out COVID-19 05/17/2022 05/17/2022 05/17/2022 10:20 PM BATTER DEPOSITOR Rule Out COVID-19 06/09/2022 06/09/2022 06/09/2022 9:35 AM BATTER DEPOSITOR COVID-19 06/09/2022 06/09/2022 06/30/2022 11:4 1 PM BATTER DEPOSITOR Rule Out COVID-19 11/10/2022 11/10/2022 11/11/2022 12:17 [...] documented as of this encounter Care Teams Instruction Dean Relationship Specialty Start Date End Date Mraija Edgar APRN TRANSPORTATION PLANNER [address] [place] [address] PCP - General Nurse Practitioner 04/30/20 04/14/23 Esha Grimm PA-C [address] [place] [phone] PCP - General Family Medicine 05/04/23 Lita Oseguera Personal Advocate & Liaison (PAL) 02/28/20 03/27/23 Rakesh Cid [facility]C [address] [facility] [place] [address] Assigned PCP 03/02/20 06/07/20 Chanelle Mccann APRN CNM [address] [address] Assigned OBGYN Provider 05/02/2005/09 Lesley Guillermo, CHW Community Health Worker 05/30/20 06/08/20 Kyara De La Fuente, RN Specialty Gear Technician Neurology 06/04/20 03/05/21 Marija Edgar APRN TRANSPORTATION PLANNER [address] [place] [address] Assigned PCP 06/08/20 04/29/23 Mynor Broussard MD [address] [place] [address] Assigned Surgical Provider 06/01/20 11/28/21 Keisha Dotson MD [address] [place] [address] Assigned Neuroscience Provider 06/04/20 04/01/23 Mary Mejia Financial Resource Worker 08/07/20 08/21/20 Stacey Briones, [facility] Lead Gear Technician Primary Care - CC 08/11/20 12/30/20 Lesley Guillermo, [facility] Community Health Worker 08/11/20 10/01/20 Mary Mejia Financial Resource Worker 09/02/20 10/06/20 Lita Oseguera Personal Advocate & Liaison (PAL) Family Medicine 09/10/20 09/21/20 Galo Burrell MD Assigned Heart and Vascular Provider 10/05/20 04/02/22 Cristina Wood Financial Resource Worker 10/07/20 10/14/20 Lesley Guillermo, [facility] Community Health Worker 10/23/20 12/30/20 Meredith Bedoya Financial Resource Worker 10/23/20 11/23/20 Cristina Wood Financial Resource Worker 02/09/21 02/09/21 Diana Desir, [facility] [address] [place] [address] Pharmacist Pharmacist 04/17/21 Rain Galaviz PA-C [address] [place] [address] [address] [facility] [address] Physician Chief Counsel Dermatology 04/28/21 Summer Lara MD [address] [place] [address] Assigned OBGYN Provider 05/10/2105/23 Summer Lara MD [address] [place] [address] Assigned OBGYN Provider 05/31/21 Summer Lara MD [address] [place] [address] Assigned OBGYN Provider 05/24/2105/30 Tavia Wyatt MD [address] [place] [address] [phone] Dermatology 07/14/21 Johnny Murillo MD [facility] [address] [place] [address] Assigned Musculoskeletal Provider 08/30/21 03/17/22 Erica Farrell APRN TRANSPORTATION PLANNER [address] [place] [address] [address] [place] [address] Nurse Practitioner Cardiovascular Disease 09/09/21 Teresita Bean [facility] [address] [place] [address] Pharmacist Pharmacist 09/24/21 09/29/21 Tavia Wyatt MD [address] [place] [address] Assigned Surgical Provider 11/29/21 05/07/22 Diana Desir, [facility] [address] [place] [address] Assigned MTM Pharmacist 01/02/22 Rich Barrett MD [address] [place] [address] Physician Ophthalmology 01/21/22 Neil Kent MD [address] [place] [address] Dermatology 02/24/22 Roney Story DPM [address] [facility] [address] [place] [address] Assigned Musculoskeletal Provider 03/20/22 08/13/22 Erica Farrell APRN TRANSPORTATION PLANNER [address] [place] [address] Assigned Heart and Vascular Provider 04/03/22 04/16/22 Diana Desir, [facility] [address] [place] [address] Assigned MTM Pharmacist 04/07/22 Jelena David OD [address] [facility] [place] [address] Assigned Surgical Provider 05/08/22 10/08/22 Galo Burrell MD Assigned Heart and Vascular Provider 04/17/22 06/11/22 Livan Sharif MD [address] [place] [address] Cardiovascular Disease 05/14/22 Livan Sharif MD [address] [place] [address] Assigned Heart and Vascular Provider 06/12/22 07/23/22 Catherine Cm MD [address] [place] [address] Cardiovascular Disease 07/21/22 Valery Veronica, PAUcheC [address] [place] [address] [phone] Physician Chief Counsel Dermatology 07/21/22 Catherine Cm MD [address] [place] [address] Assigned Heart and Vascular Provider 07/24/22 11/05/22 Johnny Murillo MD [address] [place] [address] [phone] Assigned Musculoskeletal Provider 08/14/22 10/08/22 Brea Quinn APRN TRANSPORTATION PLANNER [address] [place] [address] 225605 Nurse Practitioner Dermatology 09/21/22 Brea Quinn APRN TRANSPORTATION PLANNER [address] [place] [address] [place] [id number] Assigned Surgical Provider 10/09/22 05/01/24 [place] [address] [facility] [address] Assigned Musculoskeletal Provider 10/09/22 05/01/24 Livan Sharif MD [address] [place] [phone] Assigned Heart and Vascular Provider 11/06/22 11/12/22 Catherine Cm MD [address] [place] [address] Assigned Heart and Vascular Provider 11/13/22 05/27/23 Sydnie Martinez RN Personal Advocate & Liaison (PAL) Family Medicine 03/28/23 07/31/23 Alfonso Renteria MD [address] [facility] [address] [place] [address] Assigned Neuroscience Provider 04/02/23 09/29/24 Cheng Todd PA-C [address] [place] [address] [phone] Assigned PCP 04/30/23 07/15/23 Radha Lomeli APRN TRANSPORTATION PLANNER [address] [place] [address] Assigned Heart and Vascular Provider 05/28/23 11/29/24 Jelena David OD [address] [facility] [place] [address] MD Ophthalmology 06/15/23 Pao Joseph, RN Personal Advocate & Liaison (PAL) Nurse 08/01/23 11/07/23 Esha Grimm PA-C [address] [place] [address] Assigned PCP 07/16/23 Valery Veronica PA-C [address] [place] [address] 589195 Physician Chief Counsel Dermatology 09/19/23 Rey Tay MD [address] [place] [address] 374015 MD Gastroenterology 09/20/23 Rocky Zepeda DO [address] [place] [address] [phone] Physician Gastroenterology 09/20/23 Philip Dumont MD [address] [place] [address] 406345 Physician Ophthalmology 09/22/23 Meredith Carrera PA-C [address] [place] [address] [phone] Assigned Gastroenterology Provider 11/01/23 Neil Kent MD [address] [place] [address] [phone] Dermatology 11/02/23 [place] [address] [place] [address] Neurological Surgery 12/26/23 Audrey Waite PA-C [address] [place] [address] Physician Chief Counsel Dermatology 02/28/24 Valery Veronica PA-C [id number] [place] [address] Physician Chief Counsel Dermatology 04/10/24 Herminia Hatch MD [address] [place] [address] [phone] Assigned Rheumatology Provider 07/02/24 Jelena David OD [address] [place] [address] [place] [address] Ophthalmology 08/30/24 [place] [address] [place] [address] Assigned Neuroscience Provider 09/30/24 Maru Man PA-C [address] [place] [address] Physician Chief Counsel Dermatology 10/03/24 Maru Man PA-C [address] [place] [address] Physician Chief Counsel Dermatology 10/22/24 Jelena David OD [address] [place] [address] [place] [address] Assigned Surgical Provider 10/31/24 Fabiano Correa, NURSERY ATTENDANT [address] [place] [address] Assigned Heart and Vascular Provider 11/30/24 Walter Nowak MD [address] [place] [address] Physician Clinical Cardiac Electrophysiology 03/01/25 Liset Márquez MD [address] [facility] [address] [address] turn sewer 03/13/25 Lauren Coronado, [facility] [address] [place] [address] [phone] Pharmacist Pharmacist 04/15/25 documented as of this encounter
--- OUTSIDE RECORDS SUMMARY | 2025-04-26 23:58 | XMS_ITS | Encounter Summary ---
Author Organization [place] Address [address] [place] [address] Care Team Providers Care Street Sweeper Name Role Phone Rakesh Cid PA-C Primary Care Provider [phone] Lita Oseguera Unavailable Unavailable Rakesh Cid PA-C Unavailable [phone] Lita Oseguera Unavailable Unavailable Marija Edgar APRN CREDIT REPORT CHECKER Primary Care Provider + Chanelle Mccann APRN CNM Unavailab le Lesley Guillermo Unavailable [phone] Kyara De La Fuente RN Unavailable [phone] Marija Edgar APRN CREDIT REPORT CHECKER Unavailable Mynor Broussard MD Unavailable [phone] Keisha Dotson MD Unavailable Mary Mejia Unavailable Unavailable Stacey Briones DEPUTY HEAD Unavailable [phone] Lesley Guillermo Unavailable [phone] Mary Mejia Unavailable Unavailable Lita Oseguera Unavailable Unavailable Galo Burrell MD Unavailable Unavailable Cristina Wood Unavailable Lesley Guillermo Unavailable Meredith Bedoya Unavailable Unavailable Cristina Wood Unavailable Thang Diana [place] [facility] Unavailable [phone] Rain Galaviz PA-C Unavailable Summer Lara MD Unavailable [phone] Summer Lara MD Unavailable [phone] Summer Lara MD Unavailable [phone] Tavia Wyatt MD Unavailable [phone] Johnny Murillo MD Unavailable [phone] Erica Farrell APRN CREDIT REPORT CHECKER Unavailable Teresita Bean [facility] Unavailable Tavia Wyatt MD Unavailable [phone] Diana Desir [facility] Unavailable [phone] Rich Barrett MD Unavailable Neil Kent MD Unavailable Roney Story DPM Unavailable Erica Farrell APRN CREDIT REPORT CHECKER Unavailable Diana Desir [facility] Unavailable [phone] Jelena David OD Unavailable Galo Burrell MD Unavailable Unavailable Livan Sharif MD Unavailable Livan Sharif MD Unavailable + Catherine Cm MD Unavailable + Valery Veronica PA-C Unavailable [phone] Catherine Cm MD Unavailable + Johnny Murillo MD Unavailable [phone] Brea Quinn BUILDING [employer]PPLIES SALESPERSON RETAIL CREDIT REPORT CHECKER Unavailable [phone] Brea Quinn BUILDING [employer]PL[employer] SALESPERSON RETAIL CREDIT REPORT CHECKER Unavailable [phone] Jose Francisco Johnson MD Unavailable Livan Sharif MD Unavailable Catherine Cm MD Unavailable + Sydnie Martinez RN Unavailable Unavailable Alfonso Renteria MD Unavailable Esha Grimm PA-C Primary Care Provider Cheng Todd PA-C Unavailable [phone] Radha Lomeli BUILDING SUPPLIES SALESPERSON RETAIL CREDIT REPORT CHECKER Unavailable Jelena David OD Unavailable Pao Joseph RN Unavailable Unavailable Esha Grimm PA-C Unavailable [phone] Valery Veronica PA-C Unavailable Rey Tay MD Unavailable Rocky Zepeda DO Unavailable Philip Dumont MD Unavailable [phone] Meredith Carrera PA-C Unavailable Neil Kent MD Unavailable Juan Pablo Emmanuel MD Unavailable [phone] Audrey Waite PA-C Unavailable [phone] Valery Veronica PA-C Unavailable Herminia Hatch MD Unavailable Jelena David OD Unavailable Juan Pablo Emmanuel MD Unavailable Maru Man PA-C Unavailable [phone] Maru Man PA-C Unavailable [phone] Jelena David OD Unavailable [phone] Fabiano Correa NP Unavailable [phone] Walter Nowak MD Unavailable Liset Márquez MD Unavailable Lauren Coronado [facility] Unavailable Encounter Details Date Type Department Care Team (Late st Contact Info) Description 04/28/2020 MyC Medical Advice [address] [address] Rakesh Cid PA-C [address] [place] [address] Social History Tobacco Use Types Packs/Day Years [...] CDT Legal Sex Female 4:13 AM DIRECTOR STAFFING Gender Identity Female 03/02/2021 5:45 PM CDT [...] Description 04/30/2025 10:30 AM CDT Office Visit [facility] [address], [address] [place] [phone] Liset Márquez MD [address] [address] 05/30/2025 2:45 PM DIRECTOR STAFFING Office Visit [facility] [address] [phone] [place] [phone] Fabiano Correa NP [address] 836035 Walter Nowak MD [address] [facility] [place] [place] [address] 08/07/2025 8:15 AM DIRECTOR STAFFING Office Visit [facility] [address] [place] [phone] Lucien Grimes MD [address] 256[address] 08/21/2025 9:00 AM DIRECTOR STAFFING Office [facility] [address] [phone] Neil Kent MD [address] [place] [address] 161635 10/09/2025 10:45 AM CDT Virtual Visit [facility] [address] [place] [phone] Meredith Carrera PA-C [address] [place] [address] 255555 documented as of this encounter Visit Diagnoses Not on filedocumented in this encounter Additional Health Concerns Infection Onset Date Last Indicated Resolved Time Rule Out COVID-19 07/30/2020 07/30/2020 07/30/2020 7:11 PM DIRECTOR STAFFING Rule Out COVID-19 08/30/2020 08/30/2020 08/30/2020 5:05 PM DIRECTOR STAFFING Rule Out COVID-19 09/24/2020 09/24/2020 09/24/2020 9:24 AM CDT Rule Out COVID-19 11/05/2020 11/05/2020 11/06/2020 1:09 PM CDT Rule Out COVID-19 05/11/2021 05/11/2021 05/13/2021 10:18 AM CDT Rule Out COVID-19 07/13/2021 07/13/2021 07/14/2021 3:04 PM DIRECTOR STAFFING Rule Out COVID-19 07/18/2021 07/18/2021 07/20/2021 1:56 PM DIRECTOR STAFFING COVID-19 07/18/2021 07/18/2021 08/08/2021 11:3 9 PM DIRECTOR STAFFING Rule Out COVID-19 12/18/2021 12/18/2021 12/19/2021 11:34 AM CDT Rule Out COVID-19 02/24/2022 02/24/2022 02/25/2022 1:08 PM CDT Rule Out COVID-19 04/26/2022 04/26/2022 04/26/2022 6:47 AM CDT Rule Out COVID-19 05/17/2022 05/17/2022 05/17/2022 10:20 PM DIRECTOR STAFFING Rule Out COVID-19 06/09/2022 06/09/2022 06/09/2022 9:35 AM DIRECTOR STAFFING COVID-19 06/09/2022 06/09/2022 06/30/2022 11:4 1 PM DIRECTOR STAFFING Rule Out COVID-19 11/10/2022 11/10/2022 11/11/2022 12:17 [...] as of this encounter Care Teams Street Sweeper Relationship Specialty Start Date End Date Rakesh Cid PA-C PCP - General Physician Final Installer Inspector - Medical 05/14/19 04/29/20 Marija Edgar APRN CREDIT REPORT CHECKER [address] [place], [place] [phone] PCP - General Nurse Practitioner 04/30/20 04/14/23 Esha Grimm PA-C [address] [place] [phone] PCP - General Family Medicine 05/04/23 Lita Oseguera Personal Advocate & Liaison (PAL) 02/28/20 03/27/23 Rakesh Cid PA-C [address] [place] [address] Assigned PCP 03/02/20 06/07/20 Lita Oseguera Personal Advocate & Liaison (PAL) 04/07/20 04/29/20 Chanelle Mccann APRN CNAdam [address] [address] Assigned OBGYN Provider 05/02/2005/09 Lesley Guillermo, W Community Health Worker 05/30/20 06/08/20 Kyara De La Fuente, RN Specialty Acoustical Material Worker Neurology 06/04/20 03/05/21 Marija Edgar APRN CREDIT REPORT CHECKER [address] [place] [address] Assigned PCP 06/08/20 04/29/23 Mynor Broussard MD [address] [place] [address] Assigned Surgical Provider 06/01/20 11/28/21 Keisha Dotson MD [address] [place] [address] Assigned Neuroscience Provider 06/04/20 04/01/23 Mary Mejia Financial Resource Worker 08/07/20 08/21/20 Stacey Briones, [facility] Lead Acoustical Material Worker Primary Care - CC 08/11/20 12/30/20 Lesley Guillermo W Community Health Worker 08/11/20 10/01/20 Mary [...] [facility] [address] [place] [address] Pharmacist Pharmacist 04/17/21 Rain Galaviz PA-C [address] [facility] [place] [address] Physician Final Installer Inspector Dermatology 04/28/21 Summer Lara MD [address] [place] [address] Assigned OBGYN Provider 05/10/2105/23 Summer Lara MD [address] [place], [place] 323334 Assigned OBGYN Provider 05/31/21 Summer Lara MD [address] [place] [address] Assigned OBGYN Provider 05/24/2105/30 Tavia Wyatt MD [address] [place], [place] 011[address] Dermatology 07/14/21 Johnny Murillo MD [address] [facility] [address] [place] [address] Assigned Musculoskeletal Provider 08/30/21 03/17/22 Erica Farrell APRN CREDIT REPORT CHECKER [address] [facility] [address] [place] 122805 Nurse Practitioner Cardiovascular Disease 09/09/21 Teresita Bean [facility] [address] [facility] [address] Pharmacist Pharmacist 09/24/21 09/29/21 Tavia Wyatt MD [address] [place] [place], [place] 410670 Assigned Surgical Provider 11/29/21 05/07/22 [facility] 3033 [place] [address] Assigned MTM Pharmacist 01/02/22 Rich Barrett MD 30[address] [place], [place] 516136 Physician Ophthalmology 01/21/22 Neil Kent MD 500 [place] [address] Dermatology 02/24/22 Roney Story DPM [address] [facility] [address] [place] [address] Assigned Musculoskeletal Provider 03/20/22 08/13/22 Erica Farrell APRN CREDIT REPORT CHECKER 1700 [place] [address] Assigned Heart and Vascular Provider 04/03/22 04/16/22 [facility] [address] [place], [place] 255076 Assigned MTM Pharmacist 04/07/22 Frankie Jelena TempletonSONJA woods [address] [place] [address] Assigned Surgical Provider 05/08/22 10/08/22 Galo Burrell MD Assigned Heart and Vascular Provider 04/17/22 06/11/22 Livan Sharif MD [address] [place] 599485 Cardiovascular Disease 05/14/22 Livan Sharif MD [address] [place] 635335 Assigned Heart and Vascular Provider 06/12/22 07/23/22 Catherine Cm MD [address] [place] 362525 Cardiovascular Disease 07/21/22 Valery Veronica, PA-C 909 [place], [place] 669285 Physician Final Installer Inspector Dermatology 07/21/22 Catherine Cm MD [address] [place] 902075 Assigned Heart and Vascular Provider 07/24/22 11/05/22 Johnny Murillo MD [address] [address] Assigned Musculoskeletal Provider 08/14/22 10/08/22 Brea Quinn APRN CREDIT REPORT CHECKER 500 [place] [address] Nurse Practitioner Dermatology 09/21/22 Brea Quinn APRN CREDIT REPORT CHECKER 6401 [place] [address] Assigned Surgical Provider 10/09/22 05/01/24 [place] [address] [facility] 300 [place] [address] Assigned Musculoskeletal Provider 10/09/22 05/01/24 Livan Sharif MD 6405 [facility] [address] [place] [address] Assigned Heart and Vascular Provider 11/06/22 11/12/22 Catherine Cm MD 6[address] [facility] [address] [place], [place] 793175 Assigned Heart and Vascular Provider 11/13/22 05/27/23 Sydnie Martinez RN Personal Advocate & Liaison (PAL) Family Medicine 03/28/23 07/31/23 Alfonso Renteria MD [address] [facility] 200 [place], [place] 197766 Assigned Neuroscience Provider 04/02/23 09/29/24 Cheng Todd PA-C [address] [place] [address] [phone] Assigned PCP 04/30/23 07/15/23 Radha Lomeli APRN CNP [address] [place] [address] Assigned Heart and Vascular Provider 05/28/23 11/29/24 Jelena David OD [address] [place] [address] MD Ophthalmology 06/15/23 Pao Joseph, VJ Personal Advocate & Liaison (PAL) Nurse 08/01/23 11/07/23 Esha Grimm PA-C [address] [place] [phone] Assigned PCP 07/16/23 Valery Veronica PA-C [address] [place] [address] 149805 Physician Final Installer Inspector Dermatology 09/19/23 Rey Tay MD [address] [place] [address] 251025 Gastroenterology 09/20/23 Rocky Zepeda DO [address] [place] [address] 543895 Physician Gastroenterology 09/20/23 Philip Dumont MD [address] [place] [address] 864845 Physician Ophthalmology 09/22/23 Meredith Carrera PA-C [address] [place] [address] Assigned Gastroenterology Provider 11/01/23 Neil Kent MD [address] [place] [address] Dermatology 11/02/23 [place] [address] [place] [address] Neurological Surgery 12/26/23 Audrey Waite PA-C [address] [place] [address] Physician Final Installer Inspector Dermatology 02/28/24 Valery Veronica PA-C [address]704 [address] [place] [address] Physician Final Installer Inspector Dermatology 04/10/24 Herminia Hatch MD [address] [place] [address] [phone] Assigned Rheumatology Provider 07/02/24 Jeelna David OD [address] [place] [address] [place] [address] Ophthalmology 08/30/24 [place] [address] [place] [address] Assigned Neuroscience Provider 09/30/24 Maru Man PA-C [address] [place] [address] Physician Final Installer Inspector Dermatology 10/03/24 Maru Man PA-C [address] [place] [address] Physician Final Installer Inspector Dermatology 10/22/24 Jelena David OD [address] [place] [address] Assigned Surgical Provider 10/31/24 Fabiano Correa NP [address] [place] 630605 Assigned Heart and Vascular Provider 11/30/24 Walter Nowak MD [address] [place] 349695 Physician Clinical Cardiac Electrophysiology 03/01/25 Liset Márquez MD [address] 252974 pediatric medical assistant 03/13/25 Lauren Coronado, [facility] 909 [place], [place] 027355 Pharmacist Pharmacist 04/15/25 documented as of this encounter
--- OUTSIDE RECORDS SUMMARY | 2025-04-26 23:58 | XMS_ITS | Encounter Summary ---
Author Organization [place] Address [address] [place] [address] Care Team Providers Care Commander Police Reserves Name Role Phone Diana Desir [facility] Unavailable Rain GalavizC Unavailable Tavia Wyatt MD Unavailable [phone] Erica Farrell APRN FINANCE BROKER Unavailable Rich Barrett MD Unavailable [phone] Neil Kent MD Unavailable ThangKendrickDiana Stanislav [facility] Unavailable Livan Sharif MD Unavailable Catherine Cm MD Unavailable + Valery Veronica-C Unavailable Brea Quinn APRN FINANCE BROKER Unavailable Esha Grimm PA-C Primary Care Provider Jelena David OD Unavailable Esha Grimm PA-C Unavailable [phone] Valery Veronica PA-C Unavailable Rey Tay MD Unavailable Duane Rocky Unavailable Philip Dumont MD Unavailable Meredith Carrera PA-C Unavailable Neil Kent MD Unavailable Juan Pablo Emmanuel MD Unavailable Audrey Waite PA-C Unavailable Valery Veronica PA-C Unavailable Herminia Hatch MD Unavailable Jelena David OD Unavailable Juan Pablo Emmanuel MD Unavailable Maru Man-C Unavailable Maru Man-C Unavailable Jelena David OD Unavailable [phone] Fabiano Correa NP Unavailable Walter Nowak MD Unavailable Liset Márquez MD Unavailable Lauren Coronado [facility] Unavailable Encounter Details Date Type Department Care Team (Late st Contact Info) Description 03/13/2025 Results Follow-Up [facility] [id number] [place] [phone] Lauren Claudio PA-C [address] [place] [address] Dx: Yeast infection of the vagina (Primary Dx) Social History Tobacco Use Types [...] week 05/07/2024 How often do you attend [facility]? 1 to [...] Score 1 10/24/2024 [facility] - [...] PM CDT Legal Sex Female 4:13 AM SHOP TECH Gender Identity Female 03/02/2021 5:45 PM CDT Sexual Orientation Straight 02/28/2020 12 :51 AM CDT documented as of this encounter Plan of Treatment Upcoming Encounters Date Type Department Care Team (Late st Contact Info) Description 04/30/2025 10:30 AM CDT Office Visit [facility] [address], [address] [place] [address] Liset Márquez MD [address] [facility] 300 [place] [address] 05/30/2025 2:45 PM SHOP TECH Office Visit [facility] [address] [facility] [address] [place] [phone] Fabiano Correa, BRYCE 6405 [place], [place] 986545 Walter Nowak MD [address] [facility] [place], [place] [address] 08/07/2025 8:15 AM SHOP TECH Office Visit [facility] [address] [facility] [address] [place] [phone] Lucien Grimes MD [address] 0735000 [place] 891975 08/21/2025 9:00 AM SHOP TECH Office Visit [address] [phone] Neil Kent MD [address] [place] [address] 955665 10/09/2025 10:45 AM CDT Virtual Visit [facility] [address] 4th [place] [phone] Meredith Carrera PA-C [address] [place] [address] [phone] documented as of this encounter Visit Diagnoses Diagnosis Yeast infection of the vagina- Primary Candidiasis of vulva and vagina documented in this encounter Additional Health Concerns Assessment Noted Time PHQ-9 Depression Total Score: 5 10/25/19 25 10:38 AM CDT documented as of this encounter Care Teams Commander Police Reserves Relationship Specialty Start Date End Date Esha Grimm PA-C [address] [facility] [place] [phone] PCP - General Family Medicine 05/04/23 Diana Desir, [facility] [address] [place] [address] Pharmacist Pharmacist 04/17/21 Rain Galaviz PA-C [address] [place] [address] [address] [facility] [place] [address] Physician Patron Attendant Dermatology 04/28/21 Tavia Wyatt MD [address] [place] [address] DR [address] [facility] [place] [address] Dermatology 07/14/21 Erica Farrell APRN FINANCE BROKER [address] [place] [address] Nurse Practitioner Cardiovascular Disease 09/09/21 Rich Barrett MD [address] [place] [address] Physician Ophthalmology 01/21/22 Neil Kent MD 500 [place], [place] 275685 Dermatology 02/24/22 Diana Desir, [facility] [address] [place] [address] Assigned MTM Pharmacist 04/07/22 Livan Sharif MD [address] [facility]00 [place], [place] 3[address]95 Cardiovascular Disease 05/14/22 Catherine Cm MD [address] [facility]00 [place], [place] 461555 Cardiovascular Disease 07/21/22 Valery Veronica, PA-C [address] [place] [address] 642295 Physician Patron Attendant Dermatology 07/21/22 Brea Quinn APRN FINANCE BROKER [address] [place] [address] Nurse Practitioner Dermatology 09/21/22 Jelena David OD [address] [place] [address] [place] [address] Ophthalmology 06/15/23 Esha Grimm PA-Romana [address] [place] [phone] Assigned PCP 07/16/23 Valery Veronica, PA-C [address] [place] [address] 034975 Physician Patron Attendant Dermatology 09/19/23 Rey Tay MD [address] [place] [address] 568865 Gastroenterology 09/20/23 Rocky Zepeda DO [address] [place] [address] Physician Gastroenterology 09/20/23 Philip Dumont MD [address] [place] [address] Physician Ophthalmology 09/22/23 Meredith Carrera PA-C [address] [place] [address] Assigned Gastroenterology Provider 11/01/23 Neil Kent MD [address] [place] [address] MD Dermatology 11/02/23 Juan [place] [address] [place] [address] [address] Neurological Surgery 12/26/23 Audrey Waite PA-C [address] [place] [address] Physician Patron Attendant Dermatology 02/28/24 Valery Veronica PA-C 8[address]28 [address] [place] [address] Physician Patron Attendant Dermatology 04/10/24 Herminia Hatch MD [address] [place] [address] [phone] Assigned Rheumatology Provider 07/02/24 [place] [address] [place] [address] [place] [phone] Ophthalmology 08/30/24 [place] [address] [place] [facility] 300 [place] [address] Assigned Neuroscience Provider 09/30/24 Maru Man PA-C [address] [place] [address] 104880 Physician Patron Attendant Dermatology 10/03/24 Maru Man PA-C [address] [place] [address] 274640 Physician Patron Attendant Dermatology 10/22/24 Jelena David OD [address] [facility] [place] [address] Assigned Surgical Provider 10/31/24 Fabiano Correa, BRYCE [address] [place] 295405 Assigned Heart and Vascular Provider 11/30/24 Walter Nowak MD [address] [place] [address] Physician Clinical Cardiac Electrophysiology 03/01/25 Liset Márquez MD [address] [facility] 300 [place] [address] ground service equipment mechanic 03/13/25 Lauren Coronado, [facility] 909 [place], [place] 797605 Pharmacist Pharmacist 04/15/25 documented as of this encounter
--- OUTSIDE RECORDS SUMMARY | 2025-04-26 23:58 | XMS_ITS | Encounter Summary ---
Author Organization [place] Address [address] [place] [address] Care Team Providers Care Senior Health Educator Name Role Phone Diana Desir [facility] Unavailable Rain GalavizC Unavailable Tavia Wyatt MD Unavailable [phone] Erica Farrell APRN FEATHER SAWYER Unavailable Rich Barrett MD Unavailable [phone] Neil Kent MD Unavailable ThangKendrickDiana Stanislav [facility] Unavailable Livan Sharif MD Unavailable Catherine Cm MD Unavailable + Valery Veronica-C Unavailable Brea Quinn APRN FEATHER SAWYER Unavailable Esha Grimm PA-C Primary Care Provider Jelena David OD Unavailable Esha Grimm PA-C Unavailable [phone] Valery Veronica PA-C Unavailable Rey Tay MD Unavailable Duane Rocky Unavailable Philip Dumont MD Unavailable [phone] Meredith Carrera PA-C Unavailable Neil Kent [...] for Visit * Reason Onset Date Comments Follow Up 03/19/2025 Encounter Details Date Type Department Care Team (Late st Contact Info) Description 03/19/[address] [phone] Maryjane Mccallum RN Follow Up Social History Tobacco Use Types Packs/Day Years [...] Answer Date Recorded PHQ-2 Score 1 10/24/2024 [facility] - [...] CDT 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 Gender Identity Female 03/02/2021 5:45 PM CDT Sexual Orientation Straight 02/28/2020 12 :51 AM CDT documented as of this encounter Miscellaneous Notes * Telephone Encounter - Lauren Claudio PA-C - 03/20/2025 7:41 AM CDT Noted * Telephone Encounter - Maryjane Mccallum RN - 03/19/2025 4:46 PM CDT Lauren Claudio, MONICA Unable to see OBGYN until 03/25/25 Cyst is very sore and feeling nauseated no fever at this time RN advised to go to urgent care this evening for evaluation (will go to ) Patient wanted update sent to provider 03/13/25 OV notes 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 Patient interested in possible removal. She will check with herGyn team to see if they do this. Otherwise can consider dermatology or general surgery Maryjane Mccallum Registered Nurse [facility] documented in this encounter Plan of Treatment Upcoming Encounters Date Type Department Care Team (Late st Contact Info) Description 04/30/2025 10:30 AM CDT Office Visit [facility] [address], [address] [place] [address] Liset Márquez MD [address] [place] [address] 05/30/2025 2:45 PM GRINDING MACHINE OPERATOR Office Visit [place] [id number] [phone] Fabiano Correa, BRYCE 6405 [place], [place] [phone] Walter Nowak MD 6408 [place], [place] 715145 08/07/2025 8:15 AM GRINDING MACHINE OPERATOR Office Visit [facility] [address] [phone] [place]ien Grimes MD [address] [address] 08/21/2025 9:00 AM GRINDING MACHINE OPERATOR Office Visit [facility] [address] [phone] Neil Kent MD [address] [place] [address] 10/09/2025 10:45 AM CDT Virtual Visit [facility] Gastroenterology [facility] [address] [place] [address] 4th [place] [phone] Meredith Carrera PA-C [address] [place] [address] [phone] documented as of this encounter Visit Diagnoses Not on filedocumented in this encounter Additional Health Concerns Assessment Noted Time PHQ-9 Depression Total Score: 5 10/25/19 25 10:38 AM CDT documented as of this encounter Care Teams Senior Health Educator Relationship Specialty Start Date End Date Esha Grimm PA-C [address] [place] [phone] PCP - General Family Medicine 05/04/23 Diana Desir, [facility] 30[address] [place] [address] Pharmacist Pharmacist 04/17/21 Rain Galaviz PA-C [address] [place] [address] [address] [place] [address] Physician Steam Drier Operator Dermatology 04/28/21 Tavia Wyatt MD [address] [place] [address] [address] [place] [address] Dermatology 07/14/21 Erica Farrell APRN FEATHER SAWYER [address] [place] [address] Nurse Practitioner Cardiovascular Disease 09/09/21 Rich Barrett MD [address] [place] 030385 Physician Ophthalmology 01/21/22 Neil Kent MD 500 [place], [place] 656405 Dermatology 02/24/22 Diana DesirCOX [facility]ETT [address] [place], [place] 963256 Assigned [facility] Pharmacist 04/07/22 Livan Sharif MD [address] [place] [address] Cardiovascular Disease 05/14/22 Catherine Cm MD [address] [place] 574495 Cardiovascular Disease 07/21/22 Valery Veronica PA-C [address] [place] [address] 561205 Physician Steam Drier Operator Dermatology 07/21/22 Brea Quinn APRN FEATHER SAWYER 500 [place] [address] Nurse Practitioner Dermatology 09/21/22 [place] [address] [place] [address] [place] [address] MD Ophthalmology 06/15/23 Esha Grimm PA-C [address] [place] [phone] Assigned PCP 07/16/23 Valery Veronica PA-C [address] [place] [address] Physician Steam Drier Operator Dermatology 09/19/23 Rey Tay MD [address] [place] [address] 816845 MD Gastroenterology 09/20/23 Rocky Zepeda DO [address] [place] [address] 047085 Physician Gastroenterology 09/20/23 Philip Dumont MD [address] [place] [address] 361625 Physician Ophthalmology 09/22/23 Meredith Carrera PA-C [address] [place] [address] [phone] Assigned Gastroenterology Provider 11/01/23 Neil Kent MD [address] [place] [address] 072080 Dermatology 11/02/23 [place] [address] [place] [address] Neurological Surgery 12/26/23 Audrey Waite PA-C [address] [place] [address] Physician Steam Drier Operator Dermatology 02/28/24 Valery Veronica PA-C [address] [place] [address] Physician Steam Drier Operator Dermatology 04/10/24 Herminia Hatch MD [address] [place] [address] Assigned Rheumatology Provider 07/02/24 Jelena David OD [address] [place] [address] [place] [address] Ophthalmology 08/30/24 [place] [address] [place] [address] Assigned Neuroscience Provider 09/30/24 Maru Man PA-C [address] [place] [address] Physician Steam Drier Operator Dermatology 10/03/24 Maru Man PA-C [address] [place] [address] Physician Steam Drier Operator Dermatology 10/22/24 Jelena David OD [address] [place] [address] [place] [address] Assigned Surgical Provider 10/31/24 Fabiano Correa, MEDICAID BUSINESS ANALYST [address] [place] [address] Assigned Heart and Vascular Provider 11/30/24 Walter Nowak MD [address] [facility] [place] [address] Physician Clinical Cardiac Electrophysiology 03/01/25 Liset Márquez MD [address] [address] retirement administrator 03/13/25 documented as of this encounter
--- OUTSIDE RECORDS SUMMARY | 2025-04-26 23:58 | XMS_ITS | Encounter Summary ---
Author Organization [place] Address [address] [place] [address] Care Team Providers Care Manager Route Name Role Phone Diana Desir [facility] Unavailable Rain GalavizC Unavailable [phone] Tavia Wyatt MD Unavailable [phone] Erica Farrell APRN [employer] Unavailable Rich Barrett MD Unavailable [phone] Neil Kent MD Unavailable ThangKendrickDiana Stanislav [facility] Unavailable Livan Sharif MD Unavailable Catherine Cm MD Unavailable + Valery Veronica-C Unavailable Brea Quinn APRN [employer] Unavailable Esha Grimm PA-C Primary Care Provider [phone] Jelena David OD Unavailable Esha Grimm PA-C Unavailable [phone] Valery Veronica PA-C Unavailable [phone] Rey Tay MD Unavailable Duane Rocky Unavailable Philip Dumont MD Unavailable Meredith Carrera PA-C Unavailable [phone] Neil Kent MD Unavailable Juan Pablo Emmanuel MD Unavailable [phone] Audrey Waite PA-C Unavailable Valery Veronica PA-C Unavailable Herminia Hatch MD Unavailable Jelena David OD Unavailable Juan Pablo Emmanuel MD Unavailable Maru Man PA-C Unavailable Maru Man PA-C Unavailable Jelena David OD Unavailable Fabiano Correa NP Unavailable [phone] Walter Nowak MD Unavailable Liset Márquez MD Unavailable Lauren Coronado [facility] Unavailable [phone] Encounter Details Date Type Department Care Team (Late st Contact Info) Description 03/14/2025 MyC Medical Advice [facility] G[facility] [address] [place] [address] Betzy Jolly, VJ Social History Tobacco Use Types Packs/Day [...] Answer Date Recorded PHQ-2 Score 1 10/24/2024 [facility] [...] exercise at this level? 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 6[address] [facility] [address] [place] [phone] Fabiano Correa NP [address] [place] [address] Walter Nowak MD [address] [place] [place], [place] [address] 08/07/2025 8:15 AM FOOD MIXER ASSEMBLER Office Visit [facility] 6405 [facility] [address] [place] [phone] Lucien Grimes MD [address] 3799[address] 08/21/2025 9:00 AM FOOD MIXER ASSEMBLER Office Visit [facility] [address] [phone] Neil Kent MD [address] [place] [address] 10/09/2025 10:45 AM CDT Virtual Visit [facility] Gastroenterology [address] 4th [place] [phone] Meredith Carrera PA-C [address] [place] [address]755 documented as of this encounter Visit Diagnoses Not on filedocumented in this encounter Additional Health Concerns Assessment Noted Time PHQ-9 Depression Total Score: 5 10/25/19 25 10:38 AM CDT documented as of this encounter Care Teams Manager Route Relationship Specialty Start Date End Date Esha Grimm PA-C [address] [place] [phone] PCP - General Family Medicine 05/04/23 Diana Desir, [facility] [address] [place] [address] Pharmacist Pharmacist 04/17/21 Rain Galaviz PA-C [address] [place] [address] [address] [place] [address] Physician History Teacher Dermatology 04/28/21 Tavia Wyatt MD [address] [place] [address] [address] [facility] [place] [address] Dermatology 07/14/21 Erica Farrell APRN SUPERVIS[employer] [address] [place] [address] Nurse Practitioner Cardiovascular Disease 09/09/21 Rich Barrett MD [address] [place] [address] Physician Ophthalmology 01/21/22 Neil Kent MD 500 [place] [address] Dermatology 02/24/22 Diana Desir, [facility] [address] [place] [address] Assigned MTM Pharmacist 04/07/22 Livan Sharif MD [address] [facility] [address] [place] 67[address]85 Cardiovascular Disease 05/14/22 Catherine Cm MD [address] [address] Cardiovascular Disease 07/21/22 Valery Veronica, PA-C [address] [place] [address] 744375 Physician History Teacher Dermatology 07/21/22 Brea Quinn APRN [employer] [address] [place] [address] Nurse Practitioner Dermatology 09/21/22 Jelena David OD [address] [place] [address] [address] [place] [id number] MD Ophthalmology 06/15/23 Esha Grimm PA-C [address] [place] [phone] Assigned PCP 07/16/23 Valery Veronica, PA-C [address] [place] [address] 836465 Physician History Teacher Dermatology 09/19/23 Rey Tay MD [address] [place] [address] 497115 Gastroenterology 09/20/23 Rocky Zepeda DO [address] [place] [address] 045415 Physician Gastroenterology 09/20/23 Philip Dumont MD [address] [place] [address] Physician Ophthalmology 09/22/23 Meredith Carrera PA-C [address] [place] [address] Assigned Gastroenterology Provider 11/01/23 Neil Kent MD [address] [address] Dermatology 11/02/23 [place] [address] [place], [place] 153627 Neurological Surgery 12/26/23 Audrey Waite PA-C [address] [place] [address] Physician History Teacher Dermatology 02/28/24 Valery Veronica PA-C [id number] [address] [place] [address] Physician History Teacher Dermatology 04/10/24 Herminia Hatch MD [address] [place] [address] [phone] Assigned Rheumatology Provider 07/02/24 [place] [address] [place] [address] [place] [address] Ophthalmology 08/30/24 [place] [address] [place] [address] Assigned Neuroscience Provider 09/30/24 Maru Man PA-C [address] [place] [address] Physician History Teacher Dermatology 10/03/24 Maru Man PA-C [address] [place] [address] Physician History Teacher Dermatology 10/22/24 Jelena David OD [address] [facility] [place] [address] Assigned Surgical Provider 10/31/24 Fabiano Correa NP [address] [place] 135735 Assigned Heart and Vascular Provider 11/30/24 Walter Nowak MD [address] [place] 9[address]225 Physician Clinical Cardiac Electrophysiology 03/01/25 Liset Márquez MD [address] [facility] 300 [place], [place] 434504 pharmacy informatics specialist 03/13/25 Lauren [place], [facility] 909 [place], [place] 558485 Pharmacist Pharmacist 04/15/25 documented as of this encounter
--- OUTSIDE RECORDS SUMMARY | 2025-04-26 23:58 | XMS_ITS | Encounter Summary ---
Author Organization [facility] Address [address] [place] [address] Care Team Providers Care Bunch Trimmer Mold Name Role Phone Lita Oseguera Unavailable Unavailable Rakesh Cid PA-C Unavailable Marija Edgar APRN ART DEPARTMENT HEAD Primary Care Provider + Chanelle Mccann APRN CN Unavailab le Lesley Guillermo CHW Unavailable [phone] Kyara De La Fuente RN Unavailable [phone] Marija Edgar APRN [facility] Unavailable [phone] Mynor Broussard MD Unavailable [phone] Keisha Dotson MD Unavailable Mary Mejia Unavailable Unavailable Stacey Briones GROUNDMAN Unavailable Lesley Guillermo CHW Unavailable [phone] Mary Mejia Unavailable Unavailable Lita Oseguera Unavailable Unavailable Galo Burrell MD Unavailable Unavailable Cristina Wood Unavailable Lesley Guillermo CHW Unavailable [phone] Meredith Bedoya Unavailable Unavailable Cristina Wood Unavailable Diana Desir [facility] Unavailable Rain Galaviz PA-C Unavailable Summer Lara MD Unavailable [phone] Summer Lara MD Unavailable [phone] Summer Lara MD Unavailable [phone] Tavia Wyatt MD Unavailable [phone] Johnny Murillo MD Unavailable [phone] Erica Farrell APRN ART DEPARTMENT HEAD Unavailable Teresita Bean H Unavailable Tavia Wyatt MD Unavailable [phone] Diana Desir [facility] Unavailable [phone] Rich Barrett MD Unavailable [phone] Neil Kent MD Unavailable Roney Story DPM Unavailable Erica Farrell APRN ART DEPARTMENT HEAD Unavailable + Diana Desir [facility] Unavailable [phone] FrankieJelena OD Unavailable Galo Burrell MD Unavailable Unavailable Livan Sharif MD Unavailable + Livan Sharif MD Unavailable + Catherine Cm MD Unavailable + Valery Veronica PA-C Unavailable [phone] Catherine Cm MD Unavailable + Johnny Murillo MD Unavailable [phone] Brea Quinn APRN ART DEPARTMENT HEAD Unavailable [phone] [place], Brea P TECHNOLOGY PROFESSIONAL ART DEPARTMENT HEAD Unavailable [phone] Jose Francisco Johnson MD Unavailable Livan Sharif MD Unavailable Catherine Cm MD Unavailable + Sydnie Martinez RN Unavailable Unavailable Alfonso Renteria MD Unavailable [phone] Esha Grimm PA-C Primary Care Provider Cheng Todd PA-C Unavailable Armani Radha Sia TECHNOLOGY PROFESSIONAL ART DEPARTMENT HEAD Unavailable Jelena David OD Unavailable [phone] Pao Joseph RN Unavailable Unavailable Esha Grimm PA-C Unavailable [phone] Valery Veronica PA-C Unavailable Rey Tay MD Unavailable Rocky Zepeda DO Unavailable Philip Dumont MD Unavailable [phone] Meredith Carrera PA-C Unavailable [phone] Neil Kent MD Unavailable Juan Pablo Emmanuel MD Unavailable Audrey Waite PA-C Unavailable Valery Veronica PA-C Unavailable Herminia Hatch MD Unavailable Jelena David OD Unavailable [phone] Juan Pablo Emmanuel MD Unavailable Maru Man PA-C Unavailable [phone] Maru Man PA-C Unavailable [phone] Jelena David OD Unavailable Fabiano Correa CAR LUBRICATOR Unavailable Walter Nowak MD Unavailable Liset Márquez MD Unavailable Lauren Coronado [facility] Unavailable Encounter Details Date Type Department Care Team (Late st Contact Info) Description 05/23/2020 MyC Medical Advice [address] [address] Marija Edgar, [place]RLENE ART DEPARTMENT HEAD [address] [place] [address] Social History Tobacco Use [...] CDT Legal Sex Female 4:13 AM PUBLIC INFORMATION COORDINATOR Gender Identity Female 03/02/2021 5:45 PM CDT Sexual Orientation Straight 02/28/2020 12 :51 AM CDT COVID-19 Exposure Response Date Recorded In the last month, have you been in contact with someone who was confirmed or suspected to have Coronavirus / COVID-19? No / Unsure 05/12/2020 9:03 AM PUBLIC INFORMATION COORDINATOR documented as of this encounter Plan of Treatment Upcoming Encounters Date Type Department Care Team (Late st Contact Info) Description 04/30/2025 10:30 AM CDT Office Visit [facility] [address], [address] [place] [phone] Liset Márquez MD [address] [place] [address] 05/30/2025 2:45 PM PUBLIC INFORMATION COORDINATOR Office [facility] Heart [facility] [address] [facility] [address] [place] [phone] Fabiano Correa NP [address] [place] [phone] Walter Nowak MD [address] [place] [id number] 08/07/2025 8:15 AM PUBLIC INFORMATION COORDINATOR Office [facility] [address] [facility] [address] [place] [phone] Lucien Grimes MD [address] [place] 664225 08/21/2025 9:00 AM PUBLIC INFORMATION COORDINATOR Office Visit [facility] [address] [phone] Neil Kent MD [address] [place] [address] [phone] 10/09/2025 10:45 AM CDT Virtual Visit [facility] Gastroenterology [address] [place] [phone] Meredith Carrera PA-C [address] [place] [address] documented as of this encounter Visit Diagnoses Not on filedocumented in this encounter Additional Health Concerns Infection Onset Date Last Indicated Resolved Time Rule Out COVID-19 07/30/2020 07/30/2020 07/30/2020 7:11 PM PUBLIC INFORMATION COORDINATOR Rule Out COVID-19 08/30/2020 08/30/2020 08/30/2020 5:05 PM PUBLIC INFORMATION COORDINATOR Rule Out COVID-19 09/24/2020 09/24/2020 09/24/2020 9:24 AM CDT Rule Out COVID-19 11/05/2020 11/05/2020 11/06/2020 1:09 PM CDT Rule Out COVID-19 05/11/2021 05/11/2021 05/13/2021 10:18 AM CDT Rule Out COVID-19 07/13/2021 07/13/2021 07/14/2021 3:04 PM PUBLIC INFORMATION COORDINATOR Rule Out COVID-19 07/18/2021 07/18/2021 07/20/2021 1:56 PM PUBLIC INFORMATION COORDINATOR COVID-19 07/18/2021 07/18/2021 08/08/2021 11:3 9 PM PUBLIC INFORMATION COORDINATOR Rule Out COVID-19 12/18/2021 12/18/2021 12/19/2021 11:34 AM CDT Rule Out COVID-19 02/24/2022 02/24/2022 02/25/2022 1:08 PM CDT Rule Out COVID-19 04/26/2022 04/26/2022 04/26/2022 6:47 AM CDT Rule Out COVID-19 05/17/2022 05/17/2022 05/17/2022 10:20 PM PUBLIC INFORMATION COORDINATOR Rule Out COVID-19 06/09/2022 06/09/2022 06/09/2022 9:35 AM PUBLIC INFORMATION COORDINATOR COVID-19 06/09/2022 06/09/2022 06/30/2022 11:4 1 PM PUBLIC INFORMATION COORDINATOR Rule Out COVID-19 11/10/2022 11/10/2022 11/11/2022 [...] Depression Total Score: 6 08/28/19 7:05 AM PUBLIC INFORMATION COORDINATOR documented as of this encounter Care Teams Bunch Trimmer Mold Relationship Specialty Start Date End Date Marija Edgar APRN ART DEPARTMENT HEAD [address] [place] [address] PCP - General Nurse Practitioner 04/30/20 04/14/23 Esha Grimm PA-C [address] [place] [phone] PCP - General Family Medicine 05/04/23 Lita Oseguera Personal Advocate & Liaison (PAL) 02/28/20 03/27/23 Rakesh Cid PA-C [address] [place] [address] Assigned PCP 03/02/20 06/07/20 Chanelle Mccann APRN CNM [address] [address] Assigned OBGYN Provider 05/02/2005/09 Lesley Guillermo CHW Community Health Worker 05/30/20 06/08/20 Kyara De La Fuente, RN Specialty Concrete Floor Installer Neurology 06/04/20 03/05/21 Marija Edgar APRN ART DEPARTMENT HEAD [address] [place] [address] Assigned PCP 06/08/20 04/29/23 Mynor Broussard MD 909 [place] [address] Assigned Surgical Provider 06/01/20 11/28/21 Keisha Dotson MD 909 [place] [address] Assigned Neuroscience Provider 06/04/20 04/01/23 Mary Mejia Financial Resource Worker 08/07/20 08/21/20 Stacey Briones, [facility] Lead Concrete Floor Installer Primary Care - CC 08/11/20 12/30/20 Lesley Guillermo, [facility] Community Health Worker 08/11/20 10/01/20 Mary Mejia Financial Resource Worker 09/02/20 10/06/20 Lita Oseguera Personal Advocate & Liaison (PAL) Family Medicine 09/10/20 09/21/20 Galo Burrell MD Assigned Heart and Vascular Provider 10/05/20 04/02/22 Cristina Wood Financial Resource Worker 10/07/20 10/14/20 Lesley Guillermo, [facility] Community Health Worker 10/23/20 12/30/20 Meredith Bedoya Financial Resource Worker 10/23/20 11/23/20 Cristina Wood Financial Resource Worker 02/09/21 02/09/21 Diana Desir, [facility] [address] [place] [address] Pharmacist Pharmacist 04/17/21 Rain Galaviz PA-C [address] [place] [address] [place] [address] Physician Retail Shift Manager Dermatology 04/28/21 Summer Lara MD [address] [place] [address] Assigned OBGYN Provider 05/10/2105/23 Summer Lara MD [address] [place] [address] [place], [place] 908194 Assigned OBGYN Provider 05/31/21 Summer Lara MD [address] [place] [address] Assigned OBGYN Provider 05/24/2105/30 Tavia Wyatt MD [address] [place] [address] [phone] Dermatology 07/14/21 Johnny Murillo MD [address] [place] [address] Assigned Musculoskeletal Provider 08/30/21 03/17/22 rEica Farrell APRN ART DEPARTMENT HEAD [address] [facility] [address] [place] [id number] Nurse Practitioner Cardiovascular Disease 09/09/21 Teresita Bean, [facility] [address] [place] [address] Pharmacist Pharmacist 09/24/21 09/29/21 Tavia Wyatt MD [address] [place] [address] Assigned Surgical Provider 11/29/21 05/07/22 Diana Desir, [facility] [address] [place] [address] Assigned MTM Pharmacist 01/02/22 Rich Barrett MD [address] [place] [address] Physician Ophthalmology 01/21/22 Neil Kent MD 500 [place] [address] Dermatology 02/24/22 [place] [address] [facility] [address] [place] [address] Assigned Musculoskeletal Provider 03/20/22 08/13/22 Erica Farrell APRN ART DEPARTMENT HEAD 1700 [place] [address] Assigned Heart and Vascular Provider 04/03/22 04/16/22 Diana Desir, [facility] [address] [place] [address] Assigned MTM Pharmacist 04/07/22 Jelena David OD [address] [facility] [place] [address] Assigned Surgical Provider 05/08/22 10/08/22 Galo Burrell MD Assigned Heart and Vascular Provider 04/17/22 06/11/22 Livan Sharif MD [address] [place] [address] [place] [address] Cardiovascular Disease 05/14/22 Livan Sharif MD [address] [address] [place] [address] Assigned Heart and Vascular Provider 06/12/22 07/23/22 Catherine Cm MD [address] [place] [address] [place] [address] Cardiovascular Disease 07/21/22 Valery Veronica, PA-C [address] [place] [address] 492675 Physician Retail Shift Manager Dermatology 07/21/22 Catherine Cm MD [address] [place] [address] [place] 063155 Assigned Heart and Vascular Provider 07/24/22 11/05/22 Johnny Murlilo MD [address] [place] [address] Assigned Musculoskeletal Provider 08/14/22 10/08/22 Brea Quinn APRN ART DEPARTMENT HEAD [address] [place] [address] 908985 Nurse Practitioner Dermatology 09/21/22 Brea Quinn APRN ART DEPARTMENT HEAD [address] [place] [address] Assigned Surgical Provider 10/09/22 05/01/24 [place] [address] [place] [address], [place] [address] Assigned Musculoskeletal Provider 10/09/22 05/01/24 Livan Sharif MD [address] [address] [place] 284455 Assigned Heart and Vascular Provider 11/06/22 11/12/22 Catherine Cm MD [address] [address] [place] [address] Assigned Heart and Vascular Provider 11/13/22 05/27/23 Sydnie Martinez, VJ Personal Advocate & Liaison (PAL) Family Medicine 03/28/23 07/31/23 Alfonso Renteria MD 5775 [facility] 200 [place] [address] Assigned Neuroscience Provider 04/02/23 09/29/24 Cheng Todd PA-C [address] [place] [address] Assigned PCP 04/30/23 07/15/23 Radha Lomeli APRN ART DEPARTMENT HEAD [address] [place] [address] Assigned Heart and Vascular Provider 05/28/23 11/29/24 Jelena David OD [address] [place] [place] [address] MD Ophthalmology 06/15/23 Pao Joseph, RN Personal Advocate & Liaison (PAL) Nurse 08/01/23 11/07/23 Esha Grimm PA-C [address] [place] [phone] Assigned PCP 07/16/23 Valery Veronica PA-C [address] [place] [address] 231435 Physician Retail Shift Manager Dermatology 09/19/23 Rey Tay MD [address] [place] [address] [phone] MD Gastroenterology 09/20/23 Rocky Zepeda DO [address] [place] [address] 993705 Physician Gastroenterology 09/20/23 Philip [place] MD [address] [place] [address] 223115 Physician Ophthalmology 09/22/23 Meredith Carrera PA-C [address] [place] [address] 101605 Assigned Gastroenterology Provider 11/01/23 Neil Kent MD [address] [address] Dermatology 11/02/23 [place] [address] [place] [address] Neurological Surgery 12/26/23 Audrey Waite PA-C 500 [place] [address] Physician Retail Shift Manager Dermatology 02/28/24 Valery Veronica PA-C 969401 [address] [place] [address] Physician Retail Shift Manager Dermatology 04/10/24 Herminia Hatch MD [address] [place] [address] Assigned Rheumatology Provider 07/02/24 Jelena David OD [address] [place] [address] [place] [address] Ophthalmology 08/30/24 [place] [address] [place] [address] Assigned Neuroscience Provider 09/30/24 Maru Man PA-C [address] [place] [address] Physician Retail Shift Manager Dermatology 10/03/24 Maru Man PA-C [address] [place] [address] Physician Retail Shift Manager Dermatology 10/22/24 Jelena David OD [address] [place] [address] [place] [address] Assigned Surgical Provider 10/31/24 Fabiano Correa NP 6405 [facility] [place] [address] Assigned Heart and Vascular Provider 11/30/24 Walter Nowak MD [address] [place] [place] [address] Physician Clinical Cardiac Electrophysiology 03/01/25 Liset Márquez MD [address] [address] card clothier 03/13/25 Lauren Coronado, [facility] [address] [place] [address] Pharmacist Pharmacist 04/15/25 documented as of this encounter
--- OUTSIDE RECORDS SUMMARY | 2025-04-26 23:58 | XMS_ITS | Encounter Summary ---
Author Organization [facility] Address [address] [place] [address] Care Team Providers Care Apprentice Painter Neckties Name Role Phone Diana Desir [facility] Unavailable Rain GalavizC Unavailable Tavia Wyatt MD Unavailable [phone] Erica Farrell APRN REHABILITATION SPECIALIST Unavailable Rich Barrett MD Unavailable [phone] Neil Kent MD Unavailable ThangKendrickDiana Stanislav [facility] Unavailable Livan Sharif MD Unavailable Catherine Cm MD Unavailable + Valery Veronica-C Unavailable [phone] Brea Quinn APRN REHABILITATION SPECIALIST Unavailable Esha Grimm PA-C Primary Care Provider Jelena David OD Unavailable Esha Grimm PA-C Unavailable [phone] Valery Veronica PA-C Unavailable Rey Tay MD Unavailable Duane Rocky Unavailable Philip Dumont MD Unavailable Meredith Carrera PA-C Unavailable [phone] Neil Kent MD Unavailable Juan Pablo Emmanuel MD Unavailable Audrey Waite PA-C Unavailable Valery Veronica PA-C Unavailable [phone] Herminia Hatch MD Unavailable Jelena David OD Unavailable [phone] Juan Pablo Emmanuel MD Unavailable [phone] Maru Man PA-C Unavailable Maru Man PA-C Unavailable Jelena David OD Unavailable Fabiano Correa NP Unavailable Walter Nowak MD Unavailable Liset Márquez MD Unavailable Lauren Coronado [facility] Unavailable Encounter Details Date Type Department Care Team (Late st Contact Info) Description 04/26/2025 [facility] Medical Advice [facility] Dermatology [facility] [address] [facility] 3rd [place] [address] Lauren Coronado, [facility] 909 [place] [address] Social History Tobacco Use Types [...] Answer Date Recorded PHQ-2 Score 1 04/11/2025 [facility] [...] exercise at this level? 20 min 05/07/2024 [place] Depression Scale Answer Date Recorded [place] [...] CDT Legal Sex Female 4:13 AM MEDIA DEVELOPER Gender Identity Female 03/02/2021 5:45 PM CDT Sexual Orientation Straight 02/28/2020 12 :51 AM CDT documented as of this encounter Plan of Treatment Upcoming Encounters Date Type Department Care Team (Late st Contact Info) Description 04/30/2025 10:30 AM CDT Office Visit [facility] [address], [address] [place] [address] Liset Márquez MD [address] [place] [address] 05/30/2025 2:45 PM MEDIA DEVELOPER Office Visit [facility] Heart [facility] [address] [facility] [address] [place] [phone] Fabiano Correa, BRYCE 6405 [place], [place] 575635 Walter Nowak MD 6275 [place], [place] 855385 08/07/2025 8:15 AM MEDIA DEVELOPER Office Visit [facility] [address] [facility] [address] [place] [phone] Lucien Grimes MD [address] [place] 6344200 [place], [place] 251715 08/21/2025 9:00 AM MEDIA DEVELOPER Office [facility] [address] [address] Neil Kent MD [address] [place] [address] 471745 10/09/2025 10:45 AM CDT Virtual Visit [facility] Gastroenterology Clinic [address] 4th [place] [address] Meredith Carrera PA-C [address] [place] [address] 077655 documented as of this encounter Visit Diagnoses Not on filedocumented in this encounter Additional Health Concerns Assessment Noted Time PHQ-9 Depression Total Score: 5 04/11/20 25 9:17 AM CDT documented as of this encounter Care Teams Apprentice Painter Neckties Relationship Specialty Start Date End Date Esha Grimm PA-C [address] [place] [phone] PCP - General Family Medicine 05/04/23 Diana Desir, [facility] [address] [place] [address] Pharmacist Pharmacist 04/17/21 Rain Galaviz PA-C [address] [place] [address] [address] [facility] [address] Physician Finish Painter Dermatology 04/28/21 Tavia Wyatt MD [address] [place] [address] [address] [facility] [place] [address] Dermatology 07/14/21 Erica Farrell APRN REHABILITATION SPECIALIST [address] [place] [address] Nurse Practitioner Cardiovascular Disease 09/09/21 Rich Barrett MD [address] [place] [address] Physician Ophthalmology 01/21/22 Neil Kent MD 500 [place], [place] 360935 Dermatology 02/24/22 Diana Desir, [facility] 3033 [place] [address] Assigned MTM Pharmacist 04/07/22 Livan Sharif MD [address] [address] [place], [place] 6270[address] Cardiovascular Disease 05/14/22 Catherine Cm MD [address] [place], [place] 586375 Cardiovascular Disease 07/21/22 Valery Veronica, PA-C [address] [place] [address] 343505 Physician Finish Painter Dermatology 07/21/22 Brea Quinn APRN REHABILITATION SPECIALIST [address] [place] [address] 752295 Nurse Practitioner Dermatology 09/21/22 Jelena David OD [address] [place] [address] [place] [address] MD Ophthalmology 06/15/23 Esha Grimm PA-C [address] [place] [address] Assigned PCP 07/16/23 Valery Veronica, [place] [address] [place] [address] 642115 Physician Finish Painter Dermatology 09/19/23 Rey Tay MD [address] [place] [address] 180105 Gastroenterology 09/20/23 Rocky Zepeda DO [address] [place] [address] 027420 Physician Gastroenterology 09/20/23 Philip [place] MD 6 [place] [address] Physician Ophthalmology 09/22/23 Meredith Carrera PA-C [address] [place] [address] 720675 Assigned Gastroenterology Provider 11/01/23 Neil Kent MD [address] [place] [address] 560240 MD Dermatology 11/02/23 [place] [address] [facility] [place] [place] [address] Neurological Surgery 12/26/23 Audrey Waite PA-C [address] [place] [address] 409815 Physician Finish Painter Dermatology 02/28/24 Valery Veronica PA-C 859246 [place] [address] Physician Finish Painter Dermatology 04/10/24 Herminia Hatch MD [facility] [place], [place] 03830125 Assigned Rheumatology Provider 07/02/24 Jelena David OD [address] [facility] [place] [address] Ophthalmology 08/30/24 [place] [address] [facility] 300 [place] [address] Assigned Neuroscience Provider 09/30/24 Maru Man PA-C [address], [place] [address] Physician Finish Painter Dermatology 10/03/24 Maru Man PA-C [address] [place] [address] 450760 Physician Finish Painter Dermatology 10/22/24 Jelena David OD [address] [facility] [place] [address] Assigned Surgical Provider 10/31/24 Fabiano Correa, BRYCE [address] [place] 382555 Assigned Heart and Vascular Provider 11/30/24 Walter Nowak MD [address] [place] [address] Physician Clinical Cardiac Electrophysiology 03/01/25 Liset Márquez MD [address] [facility] 300 [place] [address] trolley wire installer 03/13/25 Lauren Coronado, [facility] 9[address] [place], [place] 648475 Pharmacist Pharmacist 04/15/25 documented as of this encounter
--- OUTSIDE RECORDS SUMMARY | 2025-04-26 23:58 | XMS_ITS | Encounter Summary ---
Author Organization [place] Address [address] [place] [address] Care Team Providers Care Heat Treater Helper Name Role Phone Diana Desir [facility] Unavailable Rain GalavizC Unavailable Tavia Wyatt MD Unavailable [phone] Erica Farrell APRN MECHANICAL SPECIALIST Unavailable Rich Barrett MD Unavailable [phone] Neil Kent MD Unavailable ThangKendrickDiana Stanislav [facility] Unavailable Livan Sharif MD Unavailable Catherine Cm MD Unavailable + Valery Veronica-C Unavailable Brea Quinn APRN MECHANICAL SPECIALIST Unavailable Esha Grimm PA-C Primary Care Provider [phone] Jelena David OD Unavailable Esha Grimm PA-C Unavailable [phone] Valery Veronica PA-C Unavailable [phone] Rey Tay MD Unavailable DuaneRocky Unavailable Philip Dumont MD Unavailable [phone] Meredith Carrera PA-C Unavailable [phone] Neil Kent MD Unavailable Juan Pablo Emmanuel MD Unavailable [phone] Audrey Waite PA-C Unavailable [phone] Valery Veronica PA-C Unavailable [phone] Herminia Hatch MD Unavailable Jelena David OD Unavailable [phone] Juan Pablo Emmanuel MD Unavailable [phone] Maru Man-C Unavailable [phone] Maru Man PA-C Unavailable [phone] Jelena David OD Unavailable Fabiano Correa NP Unavailable [phone] Walter Nowak MD Unavailable Liset Márquez MD Unavailable Encounter Details Date Type Department Care Team (Latest Contact Info) Description 03/19/2025 Travel Social History Tobacco Use Types Packs/Day [...] week 05/07/2024 How often do you attend [facility] or latter day services? 1 to [...] Answer Date Recorded PHQ-2 Score 1 10/24/2024 [facility] of Occupat ional [facility] [...] exercise at this level? 20 min 05/07/2024 [place] Depression Scale Answer Date Recorded [place] Depression Score 5 01/14/2021 Last EPDS Self [...] PM CDT Legal Sex Female 4:13 AM FOREST PATHOLOGY ASSOCIATE PROFESSOR Gender Identity Female 03/02/2021 5:45 PM CDT Sexual Orientation Straight 02/28/2020 12 :51 AM CDT documented as of this encounter Plan of Treatment Upcoming Encounters Date Type Department Care Team (Late st Contact Info) Description 04/30/2025 10:30 AM CDT Office Visit [facility] [place] [address], [address], [address] [place] [phone] Liset Márquez MD [address] [email or web address] [address] [place] [address] 05/30/2025 2:45 PM FOREST PATHOLOGY ASSOCIATE PROFESSOR Office Visit [facility] 6[address] [facility] [address] [place] [phone] Fabiano Correa, AUDIO VIDEO TECHNICIAN [address] [place] [address] Walter Nowak MD [address] [place] [id number] 08/07/2025 8:15 AM FOREST PATHOLOGY ASSOCIATE PROFESSOR Office Visit [facility] [address] [facility] [address] [place] [phone] Lucien Grimes MD [address] [place] [id number] 08/21/2025 9:00 AM FOREST PATHOLOGY ASSOCIATE PROFESSOR Office Visit [facility] [address] [phone] Neil Kent MD 500 [place], [place] [phone] 10/09/2025 10:45 AM CDT Virtual Visit [facility] Gastroenterology [facility] [address] [place] [address] 4th [place] [address] Meredith Carrera PA-C [address] [place] [address] [phone] documented as of this encounter Visit Diagnoses Not on filedocumented in this encounter Additional Health Concerns Assessment Noted Time PHQ-9 Depression Total Score: 5 10/25/19 25 10:38 AM CDT documented as of this encounter Care Teams Heat Treater Helper Relationship Specialty Start Date End Date Esha Grimm PA-C [address] [place] [phone] PCP - General Family Medicine 05/04/23 Diana Desir, [facility] 3033 [place], [place] [phone] Pharmacist Pharmacist 04/17/21 Rain Galaviz PA-C [address] [place] [address] [address] [place] [address] Physician Coat Padder Dermatology 04/28/21 Tavia Wyatt MD [address] [place] [address] [address]ara [place] [address] Dermatology 07/14/21 Erica Farrell APRN MECHANICAL SPECIALIST [address] [place] [address] Nurse Practitioner Cardiovascular Disease 09/09/21 Rich Barrett MD [address] [place] 039085 Physician Ophthalmology 01/21/22 Neil Kent MD 500 [place], [place] 786075 Dermatology 02/24/22 Diana Desir, [facility] [address] [place] [address] Assigned MTM Pharmacist 04/07/22 Livan Sharif MD [address] [place] 137665 Cardiovascular Disease 05/14/22 Catherine Cm MD [address] [place] 463145 Cardiovascular Disease 07/21/22 Valery Veronica PA-C [address] [place] [address] 081715 Physician Coat Padder Dermatology 07/21/22 Brea Quinn APRN CNP [address] [place] [address] 854655 Nurse Practitioner Dermatology 09/21/22 Jelena David OD [address] [place] [address] [place] [address] Ophthalmology 06/15/23 Esha Grimm PA-C [address] [place] [phone] Assigned PCP 07/16/23 Valery Veronica PA-C [address] [place] [address] 168765 Physician Coat Padder Dermatology 09/19/23 Rey Tay MD [address] [place] [address] [phone] Gastroenterology 09/20/23 Rocky Zepeda DO [address] [place] [address] [phone] Physician Gastroenterology 09/20/23 Philip Dumont MD [address] [place] [address] Physician Ophthalmology 09/22/23 Meredith Carrera PA-C 909 [place] [address] Assigned Gastroenterology Provider 11/01/23 Neil Kent MD [address] [place] [address] MD Dermatology 11/02/23 [place] [address] [place] [address] Neurological Surgery 12/26/23 Audrey Waite PA-C [address] [place] [address] Physician Coat Padder Dermatology 02/28/24 Valery Veronica PA-C [address]756 [address] [place] [address] Physician Coat Padder Dermatology 04/10/24 Herminai Hatch MD [address] [place] [address] [id number] Assigned Rheumatology Provider 07/02/24 Jelena David OD [address] [place] [address] [place] [address] Ophthalmology 08/30/24 [place] [address] [facility] [place] [address] Assigned Neuroscience Provider 09/30/24 Maru Man PA-C [address] [place] [address] Physician Coat Padder Dermatology 10/03/24 Maru Man PA-C [address] [place] [address] Physician Coat Padder Dermatology 10/22/24 Jelena David OD [address] [facility] [place] [address] Assigned Surgical Provider 10/31/24 Fabiano Correa NP [address] [place] 176885 Assigned Heart and Vascular Provider 11/30/24 Walter Nowak MD [address] [place] 846775 Physician Clinical Cardiac Electrophysiology 03/01/25 Liset Márquez MD [address] 260634 medical laboratory scientist 03/13/25 documented as of this encounter
--- OUTSIDE RECORDS SUMMARY | 2025-04-26 23:58 | XMS_ITS | Encounter Summary ---
Author Organization [place] Address [address] [place] [address] Care Team Providers Care Production Maintenance Technician Name Role Phone Diana Desir [facility] Unavailable Rain GalavizC Unavailable [phone] Tavia Wyatt MD Unavailable [phone] Erica Farrell APRN OPERATIONS RESEARCH DIRECTOR Unavailable Rich Barrett MD Unavailable [phone] Neil Kent MD Unavailable ThangKendrickDiana Stanislav [facility] Unavailable Livan Sharif MD Unavailable Catherine Cm MD Unavailable + Valery Veronica-C Unavailable Brea Quinn APRN OPERATIONS RESEARCH DIRECTOR Unavailable Esha Grimm PA-C Primary Care Provider Jelena David OD Unavailable Esha Grimm PA-C Unavailable [phone] Valery Veronica PA-C Unavailable [phone] Rey Tay MD Unavailable DuaneRocky Unavailable Philip Dumont MD Unavailable Nhung Carrera PA-C Unavailable [phone] Neil Kent MD Unavailable Juan Pablo Emmanuel MD Unavailable [phone] Audrey Waite PA-C Unavailable Valery Veronica PA-C Unavailable [phone] Herminia Hatch MD Unavailable Jelena David OD Unavailable Juan Pablo Emmanuel MD Unavailable Maru Man PA-C Unavailable [phone] Maru Man PA-C Unavailable Jelena David OD Unavailable Fabiano Correa NP Unavailable Walter Nowak MD Unavailable Liset Márquez MD Unavailable Encounter Details Date Type Department Care Team (Late st Contact Info) Description 03/13/2025 Telephone [facility] [address] [phone] Betzy Jolly, RN Social History Tobacco Use Types Packs/Day [...] PHQ-2 Score 1 10/24/2024 [facility] [...] exercise at this level? 20 min 05/07/2024 Dunf[place]line Depression Scale Answer Date Recorded Dun[place]line Depression Score 5 01/14/2021 Last EPDS Self [...] Telephone Encounter - Betzy Jolly RN - 03/13/2025 3:40 PM CDT Turning And Beading Machine Operator reached out to patient to review provider message and questions about sedation Please call and discuss with pt. Typically EGDs completed for EoE are done with MAC propofol secondary to the amount of biopsies that will need to be obtained Patient informed of above message and additional directions of following strict diet and hold PPI for 2 weeks prior Patient asking if she should complete a stool sample while off the PPI per previous conversation with writer nhung sent staff message to provider, per patient ok to update her via [facility] Thank you, ARIES VelardeN RN [facility] Gastroenterology documented in this encounter Plan of Treatment Upcoming Encounters Date Type Department Care Team (Late st Contact Info) Description 04/30/2025 10:30 AM CDT Office Visit [facility] [address], [address] [place] [phone] Liset Márquez MD [address] [place] [address] 05/30/2025 2:45 PM STITCH SEPARATOR Office Visit [facility] [address] [phone] Fabiano Correa, STEAM AND GAS TURBINES ASSEMBLER 6405 [place], [place] 853155 Walter Nowak MD 9977 [place], [place] 377165 08/07/2025 8:15 AM STITCH SEPARATOR Office Visit [facility] [address] [phone] Lucien Grimes MD [address] 876295 08/21/2025 9:00 AM STITCH SEPARATOR Office Visit [facility] [address] [phone] Neil Kent MD 500 [place], [place] 847835 10/09/2025 10:45 AM CDT Virtual Visit [facility] [place] [address] [facility] [address] 4th [place] [phone] Nhung Carrera PA-C [address] [place] [address] documented as of this encounter Visit Diagnoses Not on filedocumented in this encounter Additional Health Concerns Assessment Noted Time PHQ-9 Depression Total Score: 5 10/25/19 25 10:38 AM CDT documented as of this encounter Care Teams Production Maintenance Technician Relationship Specialty Start Date End Date Esha Grimm PA-C [address] [place] [phone] PCP - General Family Medicine 05/04/23 Diana Desir, [facility] [address] [place] [address] Pharmacist Pharmacist 04/17/21 Rain Galaviz PA-C [address] [place] [address] [address] [place] [address] Physician Review Trainer Dermatology 04/28/21 Tavia Wyatt MD [address] [place] [address] [address] [place] [address] Dermatology 07/14/21 Erica Farrell APRN OPERATIONS RESEARCH DIRECTOR [address] [place] [address] Nurse Practitioner Cardiovascular Disease 09/09/21 Rich Barrett MD [address] [place] [address] Physician Ophthalmology 01/21/22 Neil Kent MD 500 [place], [place] 152135 Dermatology 02/24/22 Diana Desir, [facility] 30[address] [place], [place] 835116 Assigned [place] Pharmacist 04/07/22 Livan Sharif MD [address] [place], [place] [address] Cardiovascular Disease 05/14/22 Catherine Cm MD [address] [place], [place] [address] Cardiovascular Disease 07/21/22 Valery Veronica PA-C 909 [place], [place] [address]455 Physician Review Trainer Dermatology 07/21/22 Brea Quinn APRN OPERATIONS RESEARCH DIRECTOR 500 [place], [place] 6[address] Nurse Practitioner Dermatology 09/21/22 Jelena David OD [address] [facility] [place] [address] Ophthalmology 06/15/23 Esha Grimm PA-C [address] [place] [phone] Assigned PCP 07/16/23 Valery Veronica PA-C [address] [place] [address] Physician Review Trainer Dermatology 09/19/23 Rey Tay MD [address] [place] [address] MD Gastroenterology 09/20/23 Rocky Zepeda DO [address] [place] [address] Physician Gastroenterology 09/20/23 Philip Dumont MD [address] [place] [address] Physician Ophthalmology 09/22/23 Nhung Carrera PA-C [address] [place] [address] Assigned Gastroenterology Provider 11/01/23 Neil Kent MD [address] [address] Dermatology 11/02/23 [place] [address] [place] [address] Neurological Surgery 12/26/23 Audrey Waite PA-C [address] [place] [address] Physician Review Trainer Dermatology 02/28/24 Valery Veronica PA-C [address]174 [address] [place] [address] Physician Review Trainer Dermatology 04/10/24 Herminia Hatch MD [facility]5 [place], [place] [phone] Assigned Rheumatology Provider 07/02/24 Jelena David, [place] [address] [facility] [place] [address] Ophthalmology 08/30/24 [place] [address] [place] [address] Assigned Neuroscience Provider 09/30/24 Maru Man PA-C [address] [place] [address] Physician Review Trainer Dermatology 10/03/24 Maru Man PA-C [address] [place] [address] Physician Review Trainer Dermatology 10/22/24 Jelena David, SONJA [facility] [facility] [place] [address] Assigned Surgical Provider 10/31/24 Fabiano Correa, BRYCE [address] [place] 323865 Assigned Heart and Vascular Provider 11/30/24 Walter Nowak MD [address] [place] [address] Physician Clinical Cardiac Electrophysiology 03/01/25 Liset Márquez MD [address] [facility] [address] [place] [address] road design draftsperson 03/13/25 documented as of this encounter
--- OUTSIDE RECORDS SUMMARY | 2025-04-26 23:58 | XMS_ITS | Encounter Summary ---
Author Organization [facility] Address [address] [place] [address] Care Team Providers Care Pbx Operator Name Role Phone Rakesh Cid PA-C Primary Care Provider Lita Oseguera Unavailable Unavailable Rakesh Cid PA-C Unavailable [phone] Lita Oseguera Unavailable Unavailable Marija Edgar APRN MICROBIOLOGICAL ANALYST Primary Care Provider + Chanelle Mccann APRN CNM Unavailab le Lesley Guillermo Unavailable [phone] Kyara De La Fuente RN Unavailable [phone] Marija Edgar APRN MICROBIOLOGICAL ANALYST Unavailable Mynor Broussard MD Unavailable [phone] Keisha Dotson MD Unavailable Mary Mejia Unavailable Unavailable Stacey Briones SPINDLE REPAIRER Unavailable [phone] Lesley Guillermo Unavailable [phone] Mary Mejia Unavailable Unavailable Lita Oseguera Unavailable Unavailable Galo Burrell MD Unavailable Unavailable Cristina Wood Unavailable Lesley Guillermo Unavailable Meredith Bedoya Unavailable Unavailable Cristina Wood Unavailable Thang Diana Colorado [facility] Unavailable [phone] Rain Galaviz PA-C Unavailable Summer Lara MD Unavailable [phone] Summer Lara MD Unavailable [phone] Summer Lara MD Unavailable [phone] Tavia Wyatt MD Unavailable [phone] Johnny Murillo MD Unavailable [phone] Erica Farrell APRN MICROBIOLOGICAL ANALYST Unavailable Teresita Bean [facility] Unavailable Tavia Wyatt MD Unavailable [phone] Diana Desir [facility] Unavailable [phone] Rich Barrett MD Unavailable Neil Kent MD Unavailable Roney Story DPM Unavailable Erica Farrell APRN MICROBIOLOGICAL ANALYST Unavailable Diana Desir [facility] Unavailable [phone] Jelena David OD Unavailable [phone] Galo Burrell MD Unavailable Unavailable Livan Sharif MD Unavailable Livan Sharif MD Unavailable + Catherine Cm MD Unavailable + Valery Veronica PA-C Unavailable [phone] Catherine Cm MD Unavailable + Johnny Murillo MD Unavailable [phone] Brea Quinn WRESTLING COACH MICROBIOLOGICAL ANALYST Unavailable [phone] Brea Quinn WRESTLING COACH MICROBIOLOGICAL ANALYST Unavailable [phone] Jose Francisco Johnson MD Unavailable Livan Sharif MD Unavailable Catherine Cm MD Unavailable + Sydnie Martinez RN Unavailable Unavailable Alfonso Renteria MD Unavailable Esha Grimm PA-C Primary Care Provider Cheng Todd PA-C Unavailable [phone] Radha Lomeli WRESTLING COACH MICROBIOLOGICAL ANALYST Unavailable Jelena David OD Unavailable [phone] Pao Joseph RN Unavailable Unavailable Esha Grimm PA-C Unavailable [phone] Valery Veronica PA-C Unavailable Rey Tay MD Unavailable Rocky Zepeda DO Unavailable Philip Dumont MD Unavailable [phone] Meredith Carrera PA-C Unavailable Neil Kent MD Unavailable Juan Pablo Emmanuel MD Unavailable Audrey Waite PA-C Unavailable [phone] Valery Veronica PA-C Unavailable Herminia Hatch MD Unavailable Jelena David OD Unavailable Juan Pablo Emmanuel MD Unavailable Maru Man PA-C Unavailable [phone] Maru Man PA-C Unavailable [phone] Jelena David OD Unavailable Fabiano Correa NP Unavailable [phone] Walter Nowak MD Unavailable Liset Márquez MD Unavailable Lauren Coronado [facility] Unavailable [phone] Encounter Details Date Type Department Care Team (Late st Contact Info) Description 04/25/2020 MyC Medical Advice [address] [address] Rakesh Cid PA-C [address] [place] [address] Social History Tobacco Use Types Packs/Day Years [...] PM CDT Legal Sex Female 4:13 AM EDITOR & CO FOUNDER Gender Identity Female 03/02/2021 5:45 PM [...] Description 04/30/2025 10:30 AM CDT [facility] [address], [address] [place] [phone] Liset Márquez MD [address] [address] 05/30/2025 2:45 PM EDITOR & CO FOUNDER Office Visit [facility] [address] [phone] [place] [phone] Fabiano Correa NP [address] [place] 87[address] Walter Nowak MD [address] [facility] [place] [place] [address] 08/07/2025 8:15 AM EDITOR & CO FOUNDER [facility] [address] [place] [phone] Lucien Grimes MD [address] [phone] 08/21/2025 9:00 AM EDITOR & CO FOUNDER Office Visit [facility] [address] [phone] Neil Kent MD [address] [place] [address] 633425 10/09/2025 10:45 AM CDT Virtual [facility] [address] [place] [phone] Meredith Carrera PA-C [address] [place] [address] 644265 documented as of this encounter Visit Diagnoses Not on filedocumented in this encounter Additional Health Concerns Infection Onset Date Last Indicated Resolved Time Rule Out COVID-19 07/30/2020 07/30/2020 07/30/2020 7:11 PM EDITOR & CO FOUNDER Rule Out COVID-19 08/30/2020 08/30/2020 08/30/2020 5:05 PM EDITOR & CO FOUNDER Rule Out COVID-19 09/24/2020 09/24/2020 09/24/2020 9:24 AM CDT Rule Out COVID-19 11/05/2020 11/05/2020 11/06/2020 1:09 PM CDT Rule Out COVID-19 05/11/2021 05/11/2021 05/13/2021 10:18 AM CDT Rule Out COVID-19 07/13/2021 07/13/2021 07/14/2021 3:04 PM EDITOR & CO FOUNDER Rule Out COVID-19 07/18/2021 07/18/2021 07/20/2021 1:56 PM EDITOR & CO FOUNDER COVID-19 07/18/2021 07/18/2021 08/08/2021 11:3 9 PM EDITOR & CO FOUNDER Rule Out COVID-19 12/18/2021 12/18/2021 12/19/2021 11:34 AM CDT Rule Out COVID-19 02/24/2022 02/24/2022 02/25/2022 1:08 PM CDT Rule Out COVID-19 04/26/2022 04/26/2022 04/26/2022 6:47 AM CDT Rule Out COVID-19 05/17/2022 05/17/2022 05/17/2022 10:20 PM EDITOR & CO FOUNDER Rule Out COVID-19 06/09/2022 06/09/2022 06/09/2022 9:35 AM EDITOR & CO FOUNDER COVID-19 06/09/2022 06/09/2022 06/30/2022 11:4 1 PM EDITOR & CO FOUNDER Rule Out COVID-19 11/10/2022 11/10/2022 11/11/2022 12:17 [...] documented as of this encounter Care Teams Pbx Operator Relationship Specialty Start Date End Date Rakesh Cid PA-C PCP - General Physician Software Quality Automation Engineer - Medical 05/14/19 04/29/20 Marija Edgar APRN MICROBIOLOGICAL ANALYST [address] [place], [place] [phone] PCP - General Nurse Practitioner 04/30/20 04/14/23 Esha Grimm PA-C [address] [place] [phone] PCP - General Family Medicine 05/04/23 Lita Oseguera Personal Advocate & Liaison (PAL) 02/28/20 03/27/23 Rakesh Cid PA-C [address] [place] [address] Assigned PCP 03/02/20 06/07/20 Lita Oseguera Personal Advocate & Liaison (PAL) 04/07/20 04/29/20 Chanelle Mccann APRN CNAdam [address] [address] Assigned OBGYN Provider 05/02/2005/09 Lesley Guillermo, W Community Health Worker 05/30/20 06/08/20 Kyara De La Fuente, RN Specialty Batch Operator Neurology 06/04/20 03/05/21 Marija Edgar APRN MICROBIOLOGICAL ANALYST [address] [place] [address] Assigned PCP 06/08/20 04/29/23 Mynor Broussard MD [address] [place] [address] Assigned Surgical Provider 06/01/20 11/28/21 Keisha Dotson MD [address] [place] [address] Assigned Neuroscience Provider 06/04/20 04/01/23 Mary Mejia Financial Resource Worker 08/07/20 08/21/20 Stacey Briones, [facility] Lead Batch Operator Primary Care - CC 08/11/20 12/30/20 [...] Financial Resource Worker 02/09/21 02/09/21 Diana Desir, [facility] [address] [place] [address] Pharmacist Pharmacist 04/17/21 Rain Galaviz PA-C [address] [facility] [place] [address] Physician Software Quality Automation Engineer Dermatology 04/28/21 Summer Lara MD [address] [place] [address] Assigned OBGYN Provider 05/10/2105/23 Summer Lara MD [address] [place], [place] 727924 Assigned OBGYN Provider 05/31/21 Summer Lara MD [address] [place] [address] Assigned OBGYN Provider 05/24/2105/30 Tavia Wyatt MD [address] [place], [place] 769264 Dermatology 07/14/21 Johnny Murillo MD [address] [facility] [address] [place] [address] Assigned Musculoskeletal Provider 08/30/21 03/17/22 Erica Farrell APRN MICROBIOLOGICAL ANALYST 6405 [facility] [address] [place] 573675 Nurse Practitioner Cardiovascular Disease 09/09/21 Teresita Bean [facility] [address] [place] [address] Pharmacist Pharmacist 09/24/21 09/29/21 Tavia Wyatt MD [address] [place], [place] 754810 Assigned Surgical Provider 11/29/21 05/07/22 [facility] 3033 [place] [address] Assigned MTM Pharmacist 01/02/22 Rich Barrett MD 3033 [place], [place] 760036 Physician Ophthalmology 01/21/22 Neil Kent MD 500 [place] [address] Dermatology 02/24/22 Roney Story DPM [address] [facility] [address] [place] [address] Assigned Musculoskeletal Provider 03/20/22 08/13/22 Erica Farrell APRN MICROBIOLOGICAL ANALYST 1700 [place] [address] Assigned Heart and Vascular Provider 04/03/22 04/16/22 [facility] [address] [place], [place] 130[address] Assigned MTM Pharmacist 04/07/22 Frankie Jelena TempletonSONJA woods [address] [facility] [place] [address] Assigned Surgical Provider 05/08/22 10/08/22 Galo Burrell MD Assigned Heart and Vascular Provider 04/17/22 06/11/22 Livan Sharif MD [address] [place] 486445 Cardiovascular Disease 05/14/22 Livan Sharif MD [address] [place] 946825 Assigned Heart and Vascular Provider 06/12/22 07/23/22 Catherine Cm MD [address] [place] 316035 Cardiovascular Disease 07/21/22 Valery Veronica, PA-C 909 [place], [place] 417095 Physician Software Quality Automation Engineer Dermatology 07/21/22 Catherine Cm MD [address] [place] 322345 Assigned Heart and Vascular Provider 07/24/22 11/05/22 Johnny Murillo MD [address] [address] Assigned Musculoskeletal Provider 08/14/22 10/08/22 Brea Quinn APRN MICROBIOLOGICAL ANALYST 500 [place] [address] Nurse Practitioner Dermatology 09/21/22 Brea Quinn APRN MICROBIOLOGICAL ANALYST 6401 [place] [address] Assigned Surgical Provider 10/09/22 05/01/24 [place] [address] [facility] 300 [place] [address] Assigned Musculoskeletal Provider 10/09/22 05/01/24 Livan Sharif MD [address] [facility] [address] [place] [address] Assigned Heart and Vascular Provider 11/06/22 11/12/22 Catherine Cm MD [address] [facility] [address] [place], [place] 680155 Assigned Heart and Vascular Provider 11/13/22 05/27/23 Sydnie Martinez RN Personal Advocate & Liaison (PAL) Family Medicine 03/28/23 07/31/23 Alfonso Renteria MD 5775 [facility] 200 [place], [place] 447506 Assigned Neuroscience Provider 04/02/23 09/29/24 Cheng Todd PA-C [address] [place] [address] [id number] Assigned PCP 04/30/23 07/15/23 Radha Lomeli APRN CNP [address] [place] [address] Assigned Heart and Vascular Provider 05/28/23 11/29/24 Jelena David OD [address] [facility] [place] [address] MD Ophthalmology 06/15/23 Pao Joseph, VJ Personal Advocate & Liaison (PAL) Nurse 08/01/23 11/07/23 Esha Grimm PA-C [address] [place] [phone] Assigned PCP 07/16/23 Valery Veronica PA-C [address] [place] [address] 704525 Physician Software Quality Automation Engineer Dermatology 09/19/23 Rey Tay MD [address] [place] [address] 853275 Gastroenterology 09/20/23 Rocky Zepeda DO [address] [place] [address] 599465 Physician Gastroenterology 09/20/23 Philip Dumont MD [address] [place] [address] 128565 Physician Ophthalmology 09/22/23 Meredith Carrera PA-C [address] [place] [address] Assigned Gastroenterology Provider 11/01/23 Neil Kent MD [address] [place] [address] Dermatology 11/02/23 [place] [address] [place] [address] Neurological Surgery 12/26/23 Audrey Waite PA-C [address] [place] [address] Physician Software Quality Automation Engineer Dermatology 02/28/24 Valery Veronica PA-C [address]21 [address] [place] [address] Physician Software Quality Automation Engineer Dermatology 04/10/24 Herminia Hatch MD [address] [place] [address] [id number] Assigned Rheumatology Provider 07/02/24 Jelena David OD [address] [place] [address] [place] [address] Ophthalmology 08/30/24 [place] [address] [place] [address] Assigned Neuroscience Provider 09/30/24 Maru Man PA-C [address] [place] [address] Physician Software Quality Automation Engineer Dermatology 10/03/24 Maru Man PA-C [address] [place] [address] Physician Software Quality Automation Engineer Dermatology 10/22/24 Jelena David OD [address] [facility] [place] [address] Assigned Surgical Provider 10/31/24 Fabiano Correa NP [address] [place] 644005 Assigned Heart and Vascular Provider 11/30/24 Walter Nowak MD [address] [place] 932315 Physician Clinical Cardiac Electrophysiology 03/01/25 Liset Márquez MD [address] 552114 platen builder up 03/13/25 Lauren Coronado, [facility] 909 [place], [place] 376725 Pharmacist Pharmacist 04/15/25 documented as of this encounter
--- OUTSIDE RECORDS SUMMARY | 2025-04-26 23:58 | XMS_ITS | Encounter Summary ---
Author Organization [facility] Address [address] [place] [address] Care Team Providers Care Healthcare Technician Name Role Phone Diana Desir [facility] Unavailable Rain GalavizC Unavailable Tavia Wyatt MD Unavailable [phone] Erica Farrell APRN PROJECT HIRE Unavailable Rich Barrett MD Unavailable [phone] Neil Kent MD Unavailable ThangKendrickDiana Stanislav [facility] Unavailable Livan Sharif MD Unavailable Catherine Cm MD Unavailable + Valery Veronica-C Unavailable Brea Quinn APRN PROJECT HIRE Unavailable Esha Grimm PA-C Primary Care Provider [phone] Jelena David OD Unavailable [phone] Esha Grimm PA-C Unavailable [phone] Valery Veronica PA-C Unavailable Rey Tay [...] (Late st Contact Info) Description 03/19/[address] [address] Maryjane Mccallum RN Follow Up [...] Answer Date Recorded PHQ-2 Score 1 10/24/2024 [facility] [...] exercise at this level? 20 min 05/07/2024 [place] Depression Scale Answer Date Recorded [place] Depression Score 5 01/14/2021 Last EPDS [...] PM CDT Legal Sex Female 4:13 AM SELECTOR PACKER Gender Identity Female 03/02/2021 5:45 PM CDT Sexual Orientation Straight 02/28/2020 12 :51 AM CDT documented as of this encounter Miscellaneous Notes * Telephone Encounter - Maryjane Mccallum RN - 03/19/2025 2:02 PM CDT Alfa Balbuena PA-C Please review cardiac exercise physiologist testing 01/31/2025 (states in process, however if you click the order it appears completed) Patient calling to check in on her cardiac exercise physiologist results from January Has had a few PVCs here and there but no new symptoms or concerns Patient prefers my chart message with recommendations Maryjane Mccallum, Registered Nurse [facility] documented in this encounter Plan of Treatment Upcoming Encounters Date Type Department Care Team (Late st Contact Info) Description 04/30/2025 10:30 AM CDT Office Visit [facility] [address], [address] [place] [employer] [phone] Liset Márquez MD [address] [place] [address] 05/30/2025 2:45 PM SELECTOR PACKER Office Visit [facility] [address] [phone] Fabiano Correa, CONTINUOUS IMPROVEMENT ENGINEER 6405 [place], [place] 740635 Walter Nowak MD 3987 [place], [place] 569105 08/07/2025 8:15 AM SELECTOR PACKER Office Visit [facility] [address] [phone] Lucien Grimes MD [address] 002205 08/21/2025 9:00 AM SELECTOR PACKER Office Visit [facility] [address] [phone] Neil Kent MD 500 [place], [place] 954735 10/09/2025 10:45 AM CDT Virtual Visit [facility] [phone] [facility] [address] 4th [place] [phone] Meredith Carrera PA-C [address] [place] [address] documented as of this encounter Visit Diagnoses Not on filedocumented in this encounter Additional Health Concerns Assessment Noted Time PHQ-9 Depression Total Score: 5 10/25/19 25 10:38 AM CDT documented as of this encounter Care Teams Healthcare Technician Relationship Specialty Start Date End Date Esha Grimm PA-C [address] [place] [address] PCP - General Family Medicine 05/04/23 Diana Desir, [facility] [address] [place] [address] Pharmacist Pharmacist 04/17/21 Rain Galaviz PA-C [address] [place] [address] [address] [place] [address] [address] Salesman Dermatology 04/28/21 Tavia Wyatt MD [address] [place] [address] [address] [place] [address] Dermatology 07/14/21 Erica Farrell APRN PROJECT HIRE [address] [place] [address] Nurse Practitioner Cardiovascular Disease 09/09/21 Rich Barrett MD [address] [place] [address] Physician Ophthalmology 01/21/22 Neil Kent MD 500 [place], [place] 852815 Dermatology 02/24/22 Diana Desir, [facility] 3033 [place], [place] 816946 Assigned [place] Pharmacist 04/07/22 Livan Sharif MD [address] [place], [place] 266[address] Cardiovascular Disease 05/14/22 Catherine Cm MD [address] [place], [place] 690705 Cardiovascular Disease 07/21/22 Valery Veronica PA-C 909 [place], [place] 582245 Physician Route Salesman Dermatology 07/21/22 Brea Quinn APRN PROJECT HIRE 500 [place], [place] 937915 Nurse Practitioner Dermatology 09/21/22 Jelena David OD [address] [facility] [place] [address] Ophthalmology 06/15/23 Esha Grimm PA-C [address] [place] [address]-401183 Assigned PCP 07/16/23 Valery Veronica PA-C [address] [place] [address] Physician Route Salesman Dermatology 09/19/23 Rey Tay MD [address] [place] [address] MD Gastroenterology 09/20/23 Rocky Zepeda DO [address] [place] [address] Physician Gastroenterology 09/20/23 Philip Dumont MD [address] [place] [address] Physician Ophthalmology 09/22/23 Meredith Carrera PA-C [address] [place] [address] Assigned Gastroenterology Provider 11/01/23 Neil Kent MD [address] [address] Dermatology 11/02/23 [place] [address] [place] [address] Neurological Surgery 12/26/23 Audrey Waite PA-C [address] [place] [address] Physician Route Salesman Dermatology 02/28/24 Valery Veronica PA-C [address]057 [address] [place] [address] Physician Route Salesman Dermatology 04/10/24 Herminia Hatch MD [facility]5 [place], [place] 05681[address] Assigned Rheumatology Provider 07/02/24 Jelena David, OD [address] [facility] [place] [address] Ophthalmology 08/30/24 [place] [address] [place] [address] Assigned Neuroscience Provider 09/30/24 Maru Man PA-C [address] [place] [address] Physician Route Salesman Dermatology 10/03/24 Maru Man PA-C [address] [place] [address] Phys[address] Salesman Dermatology 10/22/24 Jelena David, SONJA [facility]5 [facility] [place] [address] Assigned Surgical Provider 10/31/24 Fabiano Correa, BRYCE [address] 903415 Assigned Heart and Vascular Provider 11/30/24 Walter Nowak MD [address] [place] [address] Physician Clinical Cardiac Electrophysiology 03/01/25 Liset Márquez MD [address] [facility] 300 [place] [address] hearing impaired teacher 03/13/25 documented as of this encounter
--- OUTSIDE RECORDS SUMMARY | 2025-04-26 23:59 | XMS_ITS | Encounter Summary ---
Author Organization [place] Address [address] [place] [address] Care Team Providers Care Belt Turner Name Role Phone Lita Oseguera Unavailable Unavailable Marija Edgar APRN ART PROFESSOR Primary Care Provider + Marija Edgar APRN ART PROFESSOR Unavailable Mynor Broussard MD Unavailable [phone] Keisha Dotson MD Unavailable Galo Burrell MD Unavailable Unavailable Diana Desir [facility] Unavailable Rain Galaviz PA-C Unavailable Summer Lara MD Unavailable [phone] Tavia Wyatt MD Unavailable Johnny Murillo MD Unavailable Erica Farrell APRN ART PROFESSOR Unavailable Teresita Bean [facility] Unavailable [phone] Tavia Wyatt MD Unavailable Diana Desir [facility] Unavailable [phone] Rich Barrett MD Unavailable [phone] Neil Kent MD Unavailable Roney Story DPM Unavailable [phone] Erica Farrell SITE DIRECTOR ART PROFESSOR Unavailable Diana Desir [facility] Unavailable [phone] Jelena David OD Unavailable Galo Burrell MD Unavailable Unavailable Livan Sharif MD Unavailable + Livan Sharif MD Unavailable + Catherine Cm MD Unavailable + Valery Veronica PA-C Unavailable [phone] Catherine Cm MD Unavailable + Johnny Murillo MD Unavailable [phone] Brea Quinn SITE DIRECTOR ART PROFESSOR Unavailable [phone] Brea Quinn SITE DIRECTOR ART PROFESSOR Unavailable [phone] Jose Francisco Johnson MD Unavailable Livan Sharif MD Unavailable + IsCatherine hobbs MD Unavailable + Sydnie Martinez RN Unavailable Unavailable Alfonso Renteria MD Unavailable Esha Grimm-C Primary Care Provider Cheng Todd PA-C Unavailable Radha Lomeli SITE DIRECTOR ART PROFESSOR Unavailable [phone] Jelena David OD Unavailable Pao Joseph RN Unavailable Unavailable Esha Grimm-C Unavailable [phone] Valery Veronica PA-C Unavailable [phone] Rey Tay MD Unavailable Rocky Zepeda DO Unavailable Philip Dumont MD Unavailable Meredith Carrera PA-C Unavailable [phone] Neil Kent MD Unavailable Juan Pablo Emmanuel MD Unavailable Audrey Waite PA-C Unavailable Valery Veronica PA-C Unavailable [phone] Herminia Hatch MD Unavailable Jelena Daivd OD Unavailable [phone] Juan Pablo Emmanuel MD Unavailable Maru Man PA-C Unavailable Maru Man PA-C Unavailable [phone] Jelena David OD Unavailable Fabiano Correa FUSE MAKER Unavailable Walter Nowak MD Unavailable Liset Márquez MD Unavailable Lauren Coronado [facility] Unavailable [phone] Encounter Details Date Type Department Care Team (Late st Contact Info) Description 06/25/2021 MyC Medical Advice [address] [address] Diana Desir, [facility] [address] [place] [address] Psoriasis (Primary Dx) Social History [...] attend [facility] or latter day services? More than 4 [...] Score 0 04/02/2021 [facility] - Occupational [...] in a fdc (including now)? No 08/11/2020 Electra Depression Scale Answer Date Recorded Electra Depression Score 5 01/14/2021 Last EPDS Self Harm Result Not on file 01/14 Education Answer Date Recorded What is the highest level of school you have completed or the highest degree you have received? 12th grade 08/07/2020 Comments No Sex and Gender Information Value Date Recorded Sex Assigned at Female 03/02/2021 5:45 PM CDT Legal Sex Female 4:13 AM AUTO REPAIR TECHNICIAN Gender Identity Female 03/02/2021 5:45 PM CDT Sexual Orientation Straight 02/28/2020 12 :51 AM CDT COVID-19 Exposure Response Date Recorded In the last month, have you been in contact with someone who was confirmed or suspected to have Coronavirus / COVID-19? No / Unsure 06/26/2021 8:28 AM AUTO REPAIR TECHNICIAN documented as of this encounter Miscellaneous Notes * Telephone Encounter - Diana Desir [facility] - 06/26/2021 9:53 AM CST Discussed with PCP and verbal approval for betamethasone cream. Diana Desir, PharmD Medication Therapy Management Provider, [facility] Pager: [phone] REPAIR TECHNICIAN documented in this encounter Plan of Treatment Upcoming Encounters Date Type Department Care Team (Late st Contact Info) Description 04/30/2025 10:30 AM CDT Office Visit [facility] [address], [address] [place] [address] Liset Márquez MD [address] [place] [address] 05/30/2025 2:45 PM AUTO REPAIR TECHNICIAN Office Visit [facility] [address] [phone] Fabiano Correa NP [address] [place], [place] [address] Walter Nowak MD [address] [place], [place] [address] 08/07/2025 8:15 AM AUTO REPAIR TECHNICIAN Office Visit [facility] [address] [address] Lucien Grimes MD [address] [place], [place] [phone] 08/21/2025 9:00 AM AUTO REPAIR TECHNICIAN Office Visit [address] [place] [place] [phone] Neil Kent MD [address] [place] [address] 10/09/2025 10:45 AM CDT Virtual Visit [facility] [place] [address] [place] [address] 4th [place] [phone] Meredith Carrera PA-C [address] [place] [address] documented as of this encounter Visit Diagnoses Diagnosis Psoriasis- Primary Other psoriasis documented in this encounter Additional Health Concerns Infection Onset Date Last Indicated Resolved Time Rule Out COVID-19 07/13/2021 07/13/2021 07/14/2021 3:04 PM AUTO REPAIR TECHNICIAN Rule Out COVID-19 07/18/2021 07/18/2021 07/20/2021 1:56 PM AUTO REPAIR TECHNICIAN COVID-19 07/18/2021 07/18/2021 08/08/2021 11:3 9 PM AUTO REPAIR TECHNICIAN Rule Out COVID-19 12/18/2021 12/18/2021 12/19/2021 11:34 AM CDT Rule Out COVID-19 02/24/2022 02/24/2022 02/25/2022 1:08 PM CDT Rule Out COVID-19 04/26/2022 04/26/2022 04/26/2022 6:47 AM CDT Rule Out COVID-19 05/17/2022 05/17/2022 05/17/2022 10:20 PM AUTO REPAIR TECHNICIAN Rule Out COVID-19 06/09/2022 06/09/2022 06/09/2022 9:35 AM AUTO REPAIR TECHNICIAN COVID-19 06/09/2022 06/09/2022 06/30/2022 11:4 1 PM AUTO REPAIR TECHNICIAN Rule Out COVID-19 11/10/2022 11/10/2022 11/11/2022 [...] documented as of this encounter Care Teams Belt Turner Relationship Specialty Start Date End Date Marija Edgar APRN ART PROFESSOR PCP - General Nurse Practitioner 04/30/20 04/14/23 Esha Grimm PA-C [address] [place] [phone] PCP - General Family Medicine 05/04/23 Lita Oseguera Personal Advocate & Liaison (PAL) 02/28/20 03/27/23 Marija Edgar APRN ART PROFESSOR Assigned PCP 06/08/20 04/29/23 Mynor Broussard MD [address] [place] [address] Assigned Surgical Provider 06/01/20 11/28/21 Keisha Dotson MD [address] [place] [address] Assigned Neuroscience Provider 06/04/20 04/01/23 Galo Burrell MD Assigned Heart and Vascular Provider 10/05/20 04/02/22 Diana Desir, [facility] [address] [place] [address] Pharmacist Pharmacist 04/17/21 Rain Galaviz PA-C [address] [place] [address] [place] [address] Physician Voltmeter Operator Dermatology 04/28/21 Summer Lara MD [address] [place] [address] Assigned OBGYN Provider 05/31/21 2 Tavia Wyatt MD [address] [place], [place] [address]E [place], [place] [address] Dermatology 07/14/21 Johnny Murillo MD [address] [place] [address] Assigned Musculoskeletal Provider 08/30/21 03/17/22 Erica Farrell APRN ART PROFESSOR [address] [facility] [address] [place] [address] Nurse Practitioner Cardiovascular Disease 09/09/21 Teresita Bean, [facility] [address] [place] [phone] Pharmacist Pharmacist 09/24/21 09/29/21 Tavia Wyatt MD [address] [place] [address] Assigned Surgical Provider 11/29/21 05/07/22 Diana Desir, [facility] [address] [place] [address] Assigned MTM Pharmacist 01/02/22 Rich Barrett MD [address] [place] [address] Physician Ophthalmology 01/21/22 Neil Kent MD [address] [place] [address] Dermatology 02/24/22 Roney Story DPM [address] [place] [facility] [address] [place] [address] Assigned Musculoskeletal Provider 03/20/22 08/13/22 Erica Farrell APRN ART PROFESSOR [address] [place] [address] Assigned Heart and Vascular Provider 04/03/22 04/16/22 Diana Desir, [facility] [address] [place] [address] Assigned MTM Pharmacist 04/07/22 [place] David [place] [address] [facility] [place] [address] Assigned Surgical Provider 05/08/22 10/08/22 Galo Burrell MD Assigned Heart and Vascular Provider 04/17/22 06/11/22 Livan Sharif MD [address] [place] [address] Cardiovascular Disease 05/14/22 Livan Sharif MD [address] [place] [address] Assigned Heart and Vascular Provider 06/12/22 07/23/22 Catherine Cm MD [address] [place] [address] Cardiovascular Disease 07/21/22 Valery Veronica, PA-C [address] [place] [address] Physician Voltmeter Operator Dermatology 07/21/22 Catherine Cm MD [address] [place] 675535 Assigned Heart and Vascular Provider 07/24/22 11/05/22 Johnny Murillo MD [address] [place] [address] Assigned Musculoskeletal Provider 08/14/22 10/08/22 Brea Quinn APRN ART PROFESSOR [address] [place] [address] 228585 Nurse Practitioner Dermatology 09/21/22 Brea Quinn APRN ART PROFESSOR [address] [place] [address] Assigned Surgical Provider 10/09/22 05/01/24 [place] [address] [place] [address], [place] [address] Assigned Musculoskeletal Provider 10/09/22 05/01/24 Livan Sharif MD [address] [place] [address] Assigned Heart and Vascular Provider 11/06/22 11/12/22 Catherine Cm MD [address] [place] [address] Assigned Heart and Vascular Provider 11/13/22 05/27/23 Sydnie Martinez, VJ Personal Advocate & Liaison (PAL) Family Medicine 03/28/23 07/31/23 Alfonso Renteria MD [address] [facility] [address] [place] [address] Assigned Neuroscience Provider 04/02/23 09/29/24 Cheng Todd PA-C [address] [place] [address] Assigned PCP 04/30/23 07/15/23 Radha Lomeli APRN ART PROFESSOR [address] [place] [address] Assigned Heart and Vascular Provider 05/28/23 11/29/24 Jelena David OD [address] [place] [address] MD Ophthalmology 06/15/23 Pao Joseph, RN Personal Advocate & Liaison (PAL) Nurse 08/01/23 11/07/23 Esha Grimm PA-C [address] [place] [phone] Assigned PCP 07/16/23 Valery Veronica PA-C [address] [place] [address] 244275 Physician Voltmeter Operator Dermatology 09/19/23 Rey Tay MD [address] [place] [address] 284175 MD Gastroenterology 09/20/23 Rocky Zepeda DO [address] [place] [address] 524385 Physician Gastroenterology 09/20/23 Philip Dumont MD [address] [place] [address] 290675 Physician Ophthalmology 09/22/23 Meredith Carrera PA-C [address] [place] [address] 999735 Assigned Gastroenterology Provider 11/01/23 Neil Kent MD [address] [address] Dermatology 11/02/23 [place] [address] [place] [address] Neurological Surgery 12/26/23 Audrey Waite PA-C [address] [place] [address] Physician Voltmeter Operator Dermatology 02/28/24 Valery Veronica PA-C [id number] [place] [address] Physician Voltmeter Operator Dermatology 04/10/24 Herminia Hatch MD [address] [place] [address] Assigned Rheumatology Provider 07/02/24 Jelena David OD [address] [place] [address] [place] [address] Ophthalmology 08/30/24 [place] [address] [place] [address] Assigned Neuroscience Provider 09/30/24 Maru Man PA-C [address] [place] [address] Physician Voltmeter Operator Dermatology 10/03/24 Maru Man PA-C [address] [place] [address] Physician Voltmeter Operator Dermatology 10/22/24 Jelena David OD [address] [place] [address] [place] [address] Assigned Surgical Provider 10/31/24 Fabiano Correa NP [address] [facility] [place] [address] Assigned Heart and Vascular Provider 11/30/24 Walter Nowak MD [address] [place] [address] Physician Clinical Cardiac Electrophysiology 03/01/25 Liset Márquez MD [address] [address] healthcare applications analyst 03/13/25 Lauren Coronado, [facility] [address] [place] [address] Pharmacist Pharmacist 04/15/25 documented as of this encounter
--- OUTSIDE RECORDS SUMMARY | 2025-04-26 23:59 | XMS_ITS | Clinical Summary ---
Author Organization [facility] Address [facility]ly [facility] [place] [address] Care Team Providers Care Assistant Professor Of Archaeology Name Role Phone Clinic, No Pcp Or Unavailable Unavailable Osiris Tomlinson MBBS Unavailable [phone] Esha Grimm PA-C Primary Care Provider [phone] Allergies Active Allergy Reactions Criticality Noted Date Comments Vancomycin Other - Describe In Comment Field Medications biotin-silicon udlt-Z-pjwowwej 3,000 mcg -100 mg-50 mg TbER Take [...] on file Legal Sex Female 2:29 PM CORRECTIONS UNIT SUPERVISOR Gender Identity Not on file Sexual Orientation Not on file Obstetrics History Last Filed Vital Signs Vital Sign Reading Time Taken Comments Blood Pressure 111/58 08/28/2024 3:42 PM CORRECTIONS UNIT SUPERVISOR Pulse 72 08/28/2024 3:42 PM CORRECTIONS UNIT SUPERVISOR Temperature 36.4 C (97.5 F) 08/28/2024 3:42 PM CORRECTIONS UNIT SUPERVISOR Respiratory Rate 15 08/28/2024 3:42 PM CORRECTIONS UNIT SUPERVISOR Oxygen Saturation 99% 08/28/2024 3:42 PM CORRECTIONS UNIT SUPERVISOR Inhaled Oxygen Concentration - - Weight 90.7 kg (200 lb) 08/28/2024 3:42 PM CORRECTIONS UNIT SUPERVISOR Height 166.5 cm (5' 5.55) 08/31/2018 11:[address] Body Mass Index - - Plan of Treatment Health Maintenance Due Date Last Done Comments Tetanus booster 2011 Depression screening for age 12+ 2012 HPV series for age 9-45 (1 - 3-dose series) 2015 Hepatitis B series for 19+ ( 1 of 3 - 19+ 3-dose series) 2019 BMI (ht and wt on same day) for age 18+ 08/31/2019 08/31/2018 Pap test for age 21-65 2021 COVID-19 vaccine series ( season) 2025 Influenza Vaccine (#1) 2025 RSV vaccine for adults or (1 - 1-dose 75+ series) 2075 HIV for age 15-65 Completed 08/28/2024 Hepatitis C screening for ag e 18-79 Completed 08/28/2024 Pneumococcal series for age 6-49 Aged Out No longer eligible based on patient's age to complete this topic Procedures Procedure Name Priority Date/Time Associated Diagnosis Comments ANTI HIV 1/2 Routine 08/28/2024 4:58 PM CORRECTIONS UNIT SUPERVISOR Routine screening for STI (sexually transmitted infection) ANTI HCV Routine 08/28/2024 4:58 PM CORRECTIONS UNIT SUPERVISOR Routine screening for STI (sexually transmitted infection) from Last 3 Months or Most Recently Relevant to Health Maintenance Results * ANTI HCV [41689.2] (08/28/2024 4:58 PM CORRECTIONS UNIT SUPERVISOR) HEPATITIS C ANTIBODY NON-REACTI VE NON-REACT TAE [facility] Comment: HCV antibody was non-reactive. There is no laboratory evidence of HCV infection. In most cases, no further action is required. However, if recent HCV exposure is suspected, a test for HCV RNA (test code 86229) is suggested. For additional information please refer to http://RedCritter.Spock/faq/AQP70u4 (This link is being provided for informational/ educational purposes only.) Blood BLOOD SPECIMEN / Unknown 08/28/2024 4:58 PM CORRECTIONS UNIT SUPERVISOR 08/28/2024 4:58 PM CORRECTIONS UNIT SUPERVISOR Ernestina Toribio MD SEND OUTS Final Result Performing Organization Address [facility] de Phone Number [employer] [facility] [address] [place] [address], [facility] [address] [place] [address] * ANTI HIV 1/2 [76603.0] (08/28/2024 4:58 PM CORRECTIONS UNIT SUPERVISOR) [facility] HIV AG/AB, 4TH GEN NON-REACT TAE NON-REACT TAE [facility] Comment: HIV-1 antigen and HIV-1/HIV-2 antibodies were [...] purpose. For additional information please refer to http://RedCritter.[employer].HidInImage/faq/NRA272 (This link is being provided for informational/ educational purposes only.) The performance of this assay has not been clinically validated in patients less than 2 years old. Blood BLOOD SPECIMEN / Unknown 08/28/2024 4:58 PM CORRECTIONS UNIT SUPERVISOR 08/28/2024 4:58 PM CORRECTIONS UNIT SUPERVISOR us Ernestina Toribio MD SEND OUTS Final Result Performing Organization Address [facility]/State/ZIP Co de Phone Number [employer] [facility] [address] [place] [address], [facility] [address] [place] [address] from Last 3 Months or Most Recently Relevant to Health Maintenance Insurance [facility] Care Teams Assistant Professor Of Archaeology Relationship Specialty Start Date End Date Esha Grimm PA-C [address] [place] [phone] PCP - General Physician Biomedical Instrument Technician 03/25/25 Clinic, No Pcp Or . 03/25/24 Osiris Tomlinson MBBS [address] [place] [facility] [address] [place] [address] Cardiovascular Disease 03/01/25
--- OUTSIDE RECORDS SUMMARY | 2025-04-26 23:59 | XMS_ITS | Encounter Summary ---
Author Organization [place] Address [address] [place] [address] Care Team Providers Care Web Production Artist Name Role Phone Lita Oseguera Unavailable Unavailable Marija Edgar APRN PARAKEET RAISER Primary Care Provider + Marija Edgar APRN PARAKEET RAISER Unavailable Mynor Broussard MD Unavailable [phone] Keisha Dotson MD Unavailable [phone] Galo Burrell MD Unavailable Unavailable Diana Desir [facility] Unavailable [phone] Rain Galaviz PA-C Unavailable Summer Lara MD Unavailable [phone] Tavia Wyatt MD Unavailable Johnny Murillo MD Unavailable Erica Farrell APRN PARAKEET RAISER Unavailable Teresita Bean [facility] Unavailable Tavia Wyatt MD Unavailable Diana Desir [facility] Unavailable Rich Barrett MD Unavailable [phone] Neil Kent MD Unavailable Roney Story DPM Unavailable [phone] Erica Farrell CONTRACTS ANALYST PARAKEET RAISER Unavailable Diana Desir [facility] Unavailable [phone] Jelena David OD Unavailable [phone] Galo Burrell MD Unavailable Unavailable Livan Sharif MD Unavailable + Livan Sharif MD Unavailable + Catherine Cm MD Unavailable + Valery Veronica PA-C Unavailable [phone] Catherine Cm MD Unavailable + Johnny Murillo MD Unavailable [phone] Brea Quinn CONTRACTS ANALYST PARAKEET RAISER Unavailable [phone] Brea Quinn CONTRACTS ANALYST PARAKEET RAISER Unavailable [phone] Jose Francisco Johnson MD Unavailable Livan Sharif MD Unavailable + IsCatherine hobbs MD Unavailable + Sydnie Martinez RN Unavailable Unavailable Alfonso Renteria MD Unavailable Esha Grimm-C Primary Care Provider Cheng Todd PA-C Unavailable Radha Lomeli CONTRACTS ANALYST PARAKEET RAISER Unavailable [phone] Jelena David OD Unavailable [phone] Pao Joseph RN Unavailable Unavailable Esha Grimm-C Unavailable [phone] Valery Veronica PA-C Unavailable [phone] Rey Tay MD Unavailable Rocky Zepeda DO Unavailable Philip Dumont MD Unavailable Meredith Carrera PA-C Unavailable [phone] Neil Kent MD Unavailable Juan Pablo Emmanuel MD Unavailable Audrey Waite PA-C Unavailable Valery Veronica PA-C Unavailable Herminia Hatch MD Unavailable Jelena David OD Unavailable Juan Pablo Emmanuel MD Unavailable Maru Man PA-C Unavailable [phone] Maru Man PA-C Unavailable [phone] Jelena David OD Unavailable Fabiano Correa SENIOR AGRICULTURAL ASSISTANT Unavailable Walter Nowak MD Unavailable Liset Márquez MD Unavailable Lauren Coronado [facility] Unavailable [phone] Encounter Details Date Type Department Care Team (Late st Contact Info) Description 06/01/2021 MyC Medical Advice [address] [address] Diana Desir, [facility] [address] [place] [address] Social History Tobacco Use Types [...] in a detention (including now)? No 08/11/2020 [place] Depression Scale Answer Date Recorded [place] Depression Score 5 01/14/2021 Last EPDS Self Harm Result Not on file 01/14 Education Answer Date Recorded What is the highest level of school you have completed or the highest degree you have received? 12th grade 08/07/2020 Comments No Sex and Gender Information Value Date Recorded Sex Assigned at Female 03/02/2021 5:45 PM CDT Legal Sex Female 4:13 AM BENCH SCIENTIST Gender Identity Female 03/02/2021 5:45 PM CDT Sexual Orientation Straight 02/28/2020 12 :51 AM CDT COVID-19 Exposure Response Date Recorded In the last month, have you been in contact with someone who was confirmed or suspected to have Coronavirus / COVID-19? No / Unsure 05/11/2021 4:19 PM CDT documented as of this encounter Miscellaneous Notes * Telephone Encounter - Diana Desir [facility] - 06/01/2021 3:43 PM CST Called patient and reassured 50 mg dose increase in sertraline is typical and okay to do. She will closely monitor changes in mental health over next couple weeks. Answered all questions. Diana Desir, PharmD Medication Therapy Management Provider, [facility] Pager: [phone] H SCIENTIST documented in this encounter Plan of Treatment Upcoming Encounters Date Type Department Care Team (Late st Contact Info) Description 04/30/2025 10:30 AM CDT Office Visit [facility] [address], [address] [place] [address] Liset Márquez MD [address] [place] [address] 05/30/2025 2:45 PM BENCH SCIENTIST Office Visit [place] [address] [place] [phone] Fabiano Correa NP 6405 [place], [place] 701845 Walter Nowak MD 8401 [place], [place] [address]45 08/07/2025 8:15 AM BENCH SCIENTIST Office Visit [facility] [address] [phone] Lucien Grimes MD [address] [address] 08/21/2025 9:00 AM BENCH SCIENTIST Office Visit [facility] [address] [phone] Neil Kent MD [address] [place] [address] 10/09/2025 10:45 AM CDT Virtual Visit [facility] [place] [address] [place] [address] 4th [place] [phone] Meredith Carrera PA-C [address] [place] [address] [phone] documented as of this encounter Visit Diagnoses Not on filedocumented in this encounter Additional Health Concerns Infection Onset Date Last Indicated Resolved Time Rule Out COVID-19 07/13/2021 07/13/2021 07/14/2021 3:04 PM BENCH SCIENTIST Rule Out COVID-19 07/18/2021 07/18/2021 07/20/2021 1:56 PM BENCH SCIENTIST COVID-19 07/18/2021 07/18/2021 08/08/2021 11:3 9 PM BENCH SCIENTIST Rule Out COVID-19 12/18/2021 12/18/2021 12/19/2021 11:34 AM CDT Rule Out COVID-19 02/24/2022 02/24/2022 02/25/2022 1:08 PM CDT Rule Out COVID-19 04/26/2022 04/26/2022 04/26/2022 6:47 AM CDT Rule Out COVID-19 05/17/2022 05/17/2022 05/17/2022 10:20 PM BENCH SCIENTIST Rule Out COVID-19 06/09/2022 06/09/2022 06/09/2022 9:35 AM BENCH SCIENTIST COVID-19 06/09/2022 06/09/2022 06/30/2022 11:4 1 PM BENCH SCIENTIST Rule Out COVID-19 11/10/2022 11/10/2022 11/11/2022 [...] as of this encounter Care Teams Web Production Artist Relationship Specialty Start Date End Date Marija Edgar APRN PARAKEET RAISER PCP - General Nurse Practitioner 04/30/20 04/14/23 Esha Grimm PA-C [address] [place] [phone] PCP - General Family Medicine 05/04/23 Lita Oseguera Personal Advocate & Liaison (PAL) 02/28/20 03/27/23 Marija Edgar APRN PARAKEET RAISER Assigned PCP 06/08/20 04/29/23 Mynor Broussard MD 909 [place] [address] Assigned Surgical Provider 06/01/20 11/28/21 Keisha Dotson MD 909 [place] [address] Assigned Neuroscience Provider 06/04/20 04/01/23 Galo Burrell MD Assigned Heart and Vascular Provider 10/05/20 04/02/22 Diana Desir, [facility] [address] [place] [address] Pharmacist Pharmacist 04/17/21 Rain Galaviz PA-C [address] [place] [address] [place] [address] Physician Client Customer Manager Dermatology 04/28/21 Summer Lara MD [address] [place] [address] Assigned OBGYN Provider 05/31/21 2 Tavia Wyatt MD [address] [place] [address] Dermatology 07/14/21 Johnny Murillo MD [facility] [address] [place] [address] Assigned Musculoskeletal Provider 08/30/21 03/17/22 Erica Farrell APRN PARAKEET RAISER 6405 [facility] [address] [place] [address] Nurse Practitioner Cardiovascular Disease 09/09/21 Teresita Bean, [facility] [address] [place] [address] Pharmacist Pharmacist 09/24/21 09/29/21 Tavia Wyatt MD [address] [place] [address] Assigned Surgical Provider 11/29/21 05/07/22 Diana Desir [facility] [address] [place] [address] Assigned MTM Pharmacist 01/02/22 Rich Barrett MD [address] [place] [address] Physician Ophthalmology 01/21/22 Neil Kent MD [address] [place] [address] Dermatology 02/24/22 [place]PM [address] [address] Assigned Musculoskeletal Provider 03/20/22 08/13/22 Erica Farrell APRN PARAKEET RAISER 1700 [place] [address] Assigned Heart and Vascular Provider 04/03/22 04/16/22 Diana Desir [facility] [address] [place] [address] Assigned MTM Pharmacist 04/07/22 Jelena David OD [address] [facility] [place] [address] Assigned Surgical Provider 05/08/22 10/08/22 Galo Burrell MD Assigned Heart and Vascular Provider 04/17/22 06/11/22 Livan Sharif MD [address] [place] [address] Cardiovascular Disease 05/14/22 Livan Sharif MD [address] [place], [place] 164015 Assigned Heart and Vascular Provider 06/12/22 07/23/22 Catherine Cm MD [address] [place], [place] 321155 Cardiovascular Disease 07/21/22 Valery Veronica, PAUcheC [address] [place] [address]755 Physician Client Customer Manager Dermatology 07/21/22 Catherine Cm MD [address] [place], [place] 304285 Assigned Heart and Vascular Provider 07/24/22 11/05/22 Johnny Murillo MD [facility] [address] 222[address] Assigned Musculoskeletal Provider 08/14/22 10/08/22 Brea Quinn APRN PARAKEET RAISER [address] [place] [address] 691145 Nurse Practitioner Dermatology 09/21/22 Brea Quinn APRN PARAKEET RAISER 6401 [facility] [place] [address] Assigned Surgical Provider 10/09/22 05/01/24 [place] [address] [address] Assigned Musculoskeletal Provider 10/09/22 05/01/24 Livan Sharif MD [address] [facility] [place] [address] Assigned Heart and Vascular Provider 11/06/22 11/12/22 Catherine Cm MD [address] [place] [address]20100 [place] [address] Assigned Heart and Vascular Provider 11/13/22 05/27/23 Sydnie Martinez, RN Personal Advocate & Liaison (PAL) Family Medicine 03/28/23 07/31/23 Alfonso Renteria MD 5775 [facility] 200 [place] [address] Assigned Neuroscience Provider 04/02/23 09/29/24 Cheng Todd PA-C [address] [place] [address] [phone] Assigned PCP 04/30/23 07/15/23 Radha Lomeli APRN PARAKEET RAISER [address] [place] [address] Assigned Heart and Vascular Provider 05/28/23 11/29/24 Jelena David OD [address] [facility] [place] [address] MD Ophthalmology 06/15/23 Pao Joseph, RN Personal Advocate & Liaison (PAL) Nurse 08/01/23 11/07/23 Esha Grimm PA-C [address] [place] [address] Assigned PCP 07/16/23 Valery Veronica PA-C [address] [place] [address] 728095 Physician Client Customer Manager Dermatology 09/19/23 Rey Tay MD [address] [place] [address] MD Gastroenterology 09/20/23 Rocky Zepeda DO [address] [place] [address] 594755 Physician Gastroenterology 09/20/23 Philip Dumont MD [address] [place] [address] 560085 Physician Ophthalmology 09/22/23 Meredith Carrera PA-C [address] [place] [address] 397375 Assigned Gastroenterology Provider 11/01/23 Neil Kent MD [address] [place] [address] 135150 Dermatology 11/02/23 [place] [address] [place] [address] Neurological Surgery 12/26/23 Audrey Waite PA-C 500 [place] [address] Physician Client Customer Manager Dermatology 02/28/24 Valery Veronica PA-C 517408 [address] [address] Physician Client Customer Manager Dermatology 04/10/24 Herminia Hatch MD [address] [place] [address] [phone] Assigned Rheumatology Provider 07/02/24 Jelena David, SONJA [address] [place] [address] [place] [address] Ophthalmology 08/30/24 [place] [address] [place] [address] Assigned Neuroscience Provider 09/30/24 Maru Man PA-C [address] [place] [address] Physician Client Customer Manager Dermatology 10/03/24 Maru Man PA-C [address] [place] [address] Physician Client Customer Manager Dermatology 10/22/24 Jelena David OD [address] [place] [address] [place] [address] Assigned Surgical Provider 10/31/24 Fabiano Correa NP [address] [place] [address] Assigned Heart and Vascular Provider 11/30/24 Walter Nowak MD 6405 [place] [address] Physician Clinical Cardiac Electrophysiology 03/01/25 Liset Márquez MD 606 [facility] [address] [address] broth setter 03/13/25 Lauren Coronado, [facility] [address] [place] [address] [phone] Pharmacist Pharmacist 04/15/25 documented as of this encounter
--- OUTSIDE RECORDS SUMMARY | 2025-04-26 23:59 | XMS_ITS | Encounter Summary ---
Author Organization [place] Address [address] [place] [address] Care Team Providers Care Still Operator Batch Or Continuous Name Role Phone Lita Oseguera Unavailable Unavailable Marija Edgar APRN MORTGAGE LOAN INTERVIEWER Primary Care Provider + Marija Edgar APRN MORTGAGE LOAN INTERVIEWER Unavailable Keisha Dotson MD Unavailable Diana Desir [facility] Unavailable [phone] Rain Galaviz PA-C Unavailable Tavia Wyatt MD Unavailable Erica Farrell APRN MORTGAGE LOAN INTERVIEWER Unavailable Rich Barrett MD Unavailable [phone] Neil Kent MD Unavailable Diana Desir [facility] Unavailable Livan Sharif MD Unavailable Catherine Cm MD Unavailable + Valery Veronica PA-C Unavailable [phone] Catherine Cm MD Unavailable + Brea Quinn CABINETMAKER APPRENTICE MORTGAGE LOAN INTERVIEWER Unavailable Brea Quinn CABINETMAKER APPRENTICE MORTGAGE LOAN INTERVIEWER Unavailable [phone] Jose Francisco Johnson MD Unavailable Livan Sharif MD Unavailable ChivoraynaCatherine boothe MD Unavailable + Sydnie Martinez RN Unavailable Unavailable Alfonso Renteria MD Unavailable Esha Grimm PA-C Primary Care Provider Cheng Todd PA-C Unavailable [phone] Radha Lomeli CABINETMAKER APPRENTICE MORTGAGE LOAN INTERVIEWER Unavailable [phone] Jelena David OD Unavailable [phone] Pao Joseph RN Unavailable Unavailable Esha Grimm PA-C Unavailable [phone] Valery Veronica PA-C Unavailable Rey Tay MD Unavailable Rocky Zepeda DO Unavailable Philip Dumont MD Unavailable [phone] Meredith Carrera PA-C Unavailable [phone] Neil Kent MD Unavailable Juan Pablo Emmanuel MD Unavailable Audrey Waite PA-C Unavailable [phone] Valery Veronica PA-C Unavailable Herminia Hatch MD Unavailable Jelena David OD Unavailable Juan Pablo Emmanuel MD Unavailable Maru Man PA-C Unavailable [phone] Maru Man PA-C Unavailable [phone] Jelena David OD Unavailable [phone] Fabiano Correa NP Unavailable [phone] Walter Nowak MD Unavailable Liset Márquez MD Unavailable CliffAjayloida Delgadillo [facility] Unavailable [phone] Reason for Visit * Reason Onset Date Comments MyChart Communication 10/27/2022 Encounter Details Date Type Department Care Team (Late st Contact Info) Description 10/27/2022 MyC Medical Advice [facility] [address] [place] [phone] Brea Quinn APRN [facility] 6401 [place] [address] MyChart Communication (/) Social History [...] Answer Date Recorded PHQ-2 Score 1 10/11/2022 [facility] [...] in a longterm (including now)? No 09/22/2021 [place] Depression Scale Answer Date Recorded [place] Depression Score 5 01/14/2021 Last EPDS Self Harm Result Not on file 01/14 Education Answer Date Recorded What is the highest level of school you have completed or the highest degree you have received? 12th grade 08/07/2020 Comments No Sex and Gender Information Value Date Recorded Sex Assigned at Female 03/02/2021 5:45 PM CDT Legal Sex Female 4:13 AM DOLL EYE SETTER Gender Identity Female 03/02/2021 5:45 PM [...] and advise. Letha Driver RN [facility] [phone] documented in this encounter Plan of Treatment Upcoming Encounters Date Type Department Care Team (Late st Contact Info) Description 04/30/2025 10:30 AM CDT Office Visit [facility] [address], [address] [place] [address] Liset Márquez MD [address] [place] [address] 05/30/2025 2:45 PM DOLL EYE SETTER Office Visit [facility] 6405 [facility] [address] [place] [phone] Fabiano Correa NP 6405 [facility] [place] 967[place] Walter Nowak MD 6810 [place], [place] 763685 08/07/2025 8:15 AM DOLL EYE SETTER Office Visit [facility] 6405 [facility] [address] [place] [phone] Lucien Grimes MD [address] 728275 08/21/2025 9:00 AM DOLL EYE SETTER Office Visit [facility] [address] [phone] Neil Kent MD [address] [place] [address] 718175 10/09/2025 10:45 AM CDT Virtual Visit [facility] [address] 4th [place] [phone] Meredith Carrera PA-C [address] [place] [address] [phone] documented as of this encounter Visit Diagnoses [...] documented as of this encounter Care Teams Still Operator Batch Or Continuous Relationship Specialty Start Date End Date Marija Edgar APRN MORTGAGE LOAN INTERVIEWER PCP - General Nurse Practitioner 04/30/20 04/14/23 Esha Grimm PA-C [address] [place] [phone] PCP - General Family Medicine 05/04/23 Lita Oseguera Personal Advocate & Liaison (PAL) 02/28/20 03/27/23 Marija Edgar APRN MORTGAGE LOAN INTERVIEWER Assigned PCP 06/08/20 04/29/23 Keisha Dotson MD 909 [place] [address] Assigned Neuroscience Provider 06/04/20 04/01/23 Diana Desir [facility] 3033 [place] [address] Pharmacist Pharmacist 04/17/21 Rain Galaviz PA-C [address] [place] [address] [address] [place] [address] Physician Marketing Admin Dermatology 04/28/21 Tavia Wyatt MD [address] [place] [address] [address] [facility] [address] Dermatology 07/14/21 Erica Farrell APRN MORTGAGE LOAN INTERVIEWER [address] [place] 544585 Nurse Practitioner Cardiovascular Disease 09/09/21 Rich Barrett MD [address] [place] 9[address]85 Physician Ophthalmology 01/21/22 Neil Kent MD 500 [place], [place] 312565 Dermatology 02/24/22 [facility] 3033 [place] [address] Assigned MTM Pharmacist 04/07/22 Livan Sharif MD [address] [place] [address] Cardiovascular Disease 05/14/22 Catherine Cm MD [address] [place] [address] Cardiovascular Disease 07/21/22 Valery Veronica PA-C 909 [place] [address] Physician Marketing Admin Dermatology 07/21/22 Catherine Cm MD [address] [place] [address] Assigned Heart and Vascular Provider 07/24/22 11/05/22 Brea Quinn APRN MORTGAGE LOAN INTERVIEWER [address] [place] [address] 310345 Nurse Practitioner Dermatology 09/21/22 Brea Quinn APRN MORTGAGE LOAN INTERVIEWER [address] [place] [address] Assigned Surgical Provider 10/09/22 05/01/24 [place] [address] [place] [address] Assigned Musculoskeletal Provider 10/09/22 05/01/24 Livan Sharif MD [address] [place] [address] Assigned Heart and Vascular Provider 11/06/22 11/12/22 Catherine Cm MD [address] [place] [address] Assigned Heart and Vascular Provider 11/13/22 05/27/23 Sydnie Martinez, VJ Personal Advocate & Liaison (PAL) Family Medicine 03/28/23 07/31/23 Alfonso Renteria MD 5775 [facility] [address] [place] [address] Assigned Neuroscience Provider 04/02/23 09/29/24 Cheng Todd PA-C [address] [place] [address] Assigned PCP 04/30/23 07/15/23 Radha Lomeli APRN MORTGAGE LOAN INTERVIEWER 6405 [facility] [address] [place] [address] Assigned Heart and Vascular Provider 05/28/23 11/29/24 Jelena David OD [address] [facility] [place] [address] Ophthalmology 06/15/23 Pao Joseph, VJ Personal Advocate & Liaison (PAL) Nurse 08/01/23 11/07/23 Esha Grimm PA-C [address] [place] [phone] Assigned PCP 07/16/23 Vlaery Veronica PA-C [address] [place] [address] 089385 Physician Marketing Admin Dermatology 09/19/23 Rey Tay MD [address] [place] [address] Gastroenterology 09/20/23 Rocky Zepeda DO [address] [place] [address] Physician Gastroenterology 09/20/23 Philip Dumont MD [address] [place] [address] Physician Ophthalmology 09/22/23 Meredith Carrera PA-C [address] [place] [address] Assigned Gastroenterology Provider 11/01/23 Neil Kent MD [address] [address] MD Dermatology 11/02/23 [place] [address] [place] [address] Neurological Surgery 12/26/23 Audrey Waite PA-C [address] [place] [address] Physician Marketing Admin Dermatology 02/28/24 Valery Veronica PA-C 90[address]60 [address] [place] [address] Physician Marketing Admin Dermatology 04/10/24 Herminia Hatch MD [address] [place] [address] [phone] Assigned Rheumatology Provider 07/02/24 Jelena David OD [address] [place] [address] [place] [address] Ophthalmology 08/30/24 [place] [address] [place] [address] Assigned Neuroscience Provider 09/30/24 Maru Man PA-C [address] [place] [address] Physician Marketing Admin Dermatology 10/03/24 Maru Man PA-C [address] [place] [address] Physician Marketing Admin Dermatology 10/22/24 Jelena David OD [address] [facility] [place] [address] Assigned Surgical Provider 10/31/24 Fabiano Correa NP [address]405 [place] [address] Assigned Heart and Vascular Provider 11/30/24 Walter Nowak MD [address] [place] [address] Physician Clinical Cardiac Electrophysiology 03/01/25 Liset Márquez MD [address] [facility] 300 [place] [address] turbo operator 03/13/25 Lauren Coronado, [facility] 909 [place], [place] [phone] Pharmacist Pharmacist 10/6/25 documented as of this encounter
--- OUTSIDE RECORDS SUMMARY | 2025-04-26 23:59 | XMS_ITS | Encounter Summary ---
Author Organization [place] Address [address] [place] [address] Care Team Providers Care Material Control Manager Name Role Phone Diana Desir [facility] Unavailable Rain GalavizC Unavailable Tavia Wyatt MD Unavailable [phone] Erica Farrell APRN ELEMENTARY EDUCATION TEACHER Unavailable Rich Barrett MD Unavailable [phone] Neil Kent MD Unavailable ThangKendrickDiana Stanislav [facility] Unavailable Livan Sharif MD Unavailable Catherine Cm MD Unavailable + Valery Veronica-C Unavailable [phone] Brea Quinn APRN ELEMENTARY EDUCATION TEACHER Unavailable Esha Grimm PA-C Primary Care Provider Jelena David OD Unavailable Esha Grimm PA-C Unavailable [phone] Valery Veronica PA-C Unavailable Rey Tay MD Unavailable DuaneRocky Unavailable Philip Dumont MD Unavailable [phone] Meredith Carrera PA-C Unavailable [phone] Neil Kent MD Unavailable Juan Pablo Emmanuel MD Unavailable Audrey Waite PA-C Unavailable [phone] Valery Veronica PA-C Unavailable Herminia Hatch MD Unavailable Jelena David OD Unavailable Juan Pablo Emmanuel MD Unavailable [phone] Maru Man-C Unavailable [phone] Maru Man PA-C Unavailable [phone] Jelena David OD Unavailable [phone] Fabiano Correa NP Unavailable [phone] Walter Nowak MD Unavailable Liset Márquez MD Unavailable Encounter Details Date Type Department Care Team (Latest Contact Info) Description 04/09/2025 Travel Social History Tobacco Use Types Packs/Day [...] do you attend [facility] or yazidism services? 1 to 4 times [...] Answer Date Recorded PHQ-2 Score 1 10/24/2024 [facility] ional [facility] - Occupational Stress Questionnaire Answer Date Recorded [...] at this level? 20 min 05/07/2024 [place] Depression Scale Answer Date Recorded [place] Depression Score 5 01/14/2021 Last EPDS [...] PM CDT Legal Sex Female 4:13 AM ANIMAL PATHOLOGY TEACHER Gender Identity Female 03/02/2021 5:45 PM CDT Sexual Orientation Straight 02/28/2020 12 :51 AM CDT documented as of this encounter Plan of Treatment Upcoming Encounters Date Type Department Care Team (Late st Contact Info) Description 04/30/2025 10:30 AM CDT Office Visit [facility] [place] [address], [address] [place] [phone] Liset Márquez MD [address] [facility] 300 [place] [address] 05/30/2025 2:45 PM ANIMAL PATHOLOGY TEACHER Office Visit [facility] 6405 [facility] [address] [place] [phone] Fabiano Correa, PUBLIC HEALTH SPECIALIST [address] [place] [address] Walter Nowak MD [address] [place] [id number] 08/07/2025 8:15 AM ANIMAL PATHOLOGY TEACHER Office Visit [facility] 6405 [facility] [address] [place] [phone] Lucien Grimes MD [address] [place] 846605 08/21/2025 9:00 AM ANIMAL PATHOLOGY TEACHER Office Visit [facility] [address] [phone] Neil Kent MD 500 [place], [place] [phone] 10/09/2025 10:45 AM CDT Virtual Visit [facility] [address] [place] [address] 4th [place] [address] Meredith Carrera PA-C [address] [place] [address] [phone] documented as of this encounter Visit Diagnoses Not on filedocumented in this encounter Additional Health Concerns Assessment Noted Time PHQ-9 Depression Total Score: 5 10/25/19 25 10:38 AM CDT documented as of this encounter Care Teams Material Control Manager Relationship Specialty Start Date End Date Esha Grimm PA-C [address] [place] [phone] PCP - General Family Medicine 05/04/23 Diana Desir, [facility] 3033 [place], [place] [phone] Pharmacist Pharmacist 04/17/21 Rain Galaviz PA-C [address] [place] [address] [address] [place] [address] Physician County Supervisor Dermatology 04/28/21 Tavai Wyatt MD [address] [place] [address] DR [address] Lara [place] [address] Dermatology 07/14/21 Erica Farrell APRN ELEMENTARY EDUCATION TEACHER [address] [place] [address] Nurse Practitioner Cardiovascular Disease 09/09/21 Rich Barrett MD [address] [place] 095985 Physician Ophthalmology 01/21/22 Neil Kent MD 500 [place], [place] 817165 Dermatology 02/24/22 Diana Desir, [facility] [address] [place] [address] 69[address] Assigned MTM Pharmacist 04/07/22 Livan Sharif MD [address] [place] [address] [place] 279635 Cardiovascular Disease 05/14/22 Catherine Cm MD [address] [place] [address] [place] 578985 Cardiovascular Disease 07/21/22 Valery Veronica PA-C [address] [place] [address] 436535 Physician County Supervisor Dermatology 07/21/22 Brea Quinn APRN CNP [address] [place] [address] 926035 Nurse Practitioner Dermatology 09/21/22 Jelena David OD [address] [place] [address] [place] [address] Ophthalmology 06/15/23 Esha Grimm PA-C [address] [place] [phone] Assigned PCP 07/16/23 Valery Veronica PA-C [address] [place] [address] 312695 Physician County Supervisor Dermatology 09/19/23 Rey Tay MD [address] [place] [address] 056205 Gastroenterology 09/20/23 Rocky Zepeda DO [address] [place] [address] 214145 Physician Gastroenterology 09/20/23 Philip Dumont MD [address] [place] [address] Physician Ophthalmology 09/22/23 Meredith Carrera PA-C [address] [place] [address] Assigned Gastroenterology Provider 11/01/23 Neil Kent MD [address] [place] [address] MD Dermatology 11/02/23 [place] [address] [place] [address] 85135 Neurological Surgery 12/26/23 Audrey Waite PA-C [address] [place] [address] Physician County Supervisor Dermatology 02/28/24 Valery Veronica PA-C [address] [place] [address] 73707 Physician County Supervisor Dermatology 04/10/24 Herminia Hatch MD [address] [place] [address] [id number] Assigned Rheumatology Provider 07/02/24 Jelena David OD [address] [place] [address] [place] [address] Ophthalmology 08/30/24 [place] [address] [place] [place] [address] Assigned Neuroscience Provider 09/30/24 Maru Man PA-C [address] [place] [address] Physician County Supervisor Dermatology 10/03/24 Maru Man PA-C [address] [place] [address] Physician County Supervisor Dermatology 10/22/24 Jelena David OD [address] [facility] [place] [address] Assigned Surgical Provider 10/31/24 Fabiano Correa NP [address] [place] [place] 977825 Assigned Heart and Vascular Provider 11/30/24 Walter Nowak MD [address] [place] 012475 Physician Clinical Cardiac Electrophysiology 03/01/25 Liset Márquez MD [address] [phone] correctional sergeant 03/13/25 documented as of this encounter
--- OUTSIDE RECORDS SUMMARY | 2025-04-26 23:59 | XMS_ITS | Encounter Summary ---
Author Organization [place] Address [address] [place] [address] Care Team Providers Care Gymnastics Coach Or Instructor Name Role Phone Rakesh Cid PA-C Unavailable [phone] Rakesh Cid PA-C Primary Care Provider [phone] Lita Oseguera Unavailable Unavailable Rakesh Cid PA-C Unavailable [phone] Isaura Lamar RN Unavailable Unavailable Lita Oseguera Unavailable Unavailable Marija Edgar APRN BULB INSPECTOR Primary Care Provider + Chanelle Mccann APRN CN Unavailab le Lesley Guillermo CHKamryn Unavailable [phone] Kyara De La Fuente RN Unavailable [phone] Marija Edgar APRN BULB INSPECTOR Unavailable [phone] Mynor Broussard MD Unavailable [phone] Keisha Dotson MD Unavailable [phone] Mary Mejia Unavailable Unavailable Stacey Briones GIS ENGINEER Unavailable [phone] Lesley Guillermo CHW Unavailable [phone] Mary Mejia Unavailable Unavailable Lita Oseguera Unavailable Unavailable Galo Burrell MD Unavailable Unavailable Cristina Wood Unavailable EagleLelsey Romana [facility] Unavailable Meredith Bedoya Unavailable Unavailable Cristina Wood Unavailable ThangDiana [facility] Unavailable Rain Galaviz-C Unavailable Summer Lara MD Unavailable [phone] Summer Lara MD Unavailable [phone] Summer Lara MD Unavailable [phone] Tavia Wyatt MD Unavailable [phone] Johnny Murillo MD Unavailable Erica Farrell APRN BULB INSPECTOR Unavailable Teresita Bean [facility] Unavailable Tavia Wyatt MD Unavailable [phone] [phone] Diana [place] [facility] Unavailable [phone] Rich Barrett MD Unavailable [phone] Neil Kent MD Unavailable Roney Story DPM Unavailable Erica Farrell APRN BULB INSPECTOR Unavailable Diana Desir [facility] Unavailable [phone] Jelena David OD Unavailable Galo Burrell MD Unavailable Unavailable Livan Sharif MD Unavailable Livan Sharif MD Unavailable + Catherine Cm MD Unavailable + Valery Veronica-C Unavailable Catherine Cm MD Unavailable + Johnny Murillo MD Unavailable [phone] Brea Quinn PHOTOGRAPHER FINISH BULB INSPECTOR Unavailable [phone] Brea Quinn PHOTOGRAPHER FINISH BULB INSPECTOR Unavailable [phone] Jose Francisco Johnson MD Unavailable Livan Sharif MD Unavailable Catherine Cm MD Unavailable + Sydnie Martinez RN Unavailable Unavailable Alfonso Renteria MD Unavailable Esha Grimm PA-C Primary Care Provider Cheng Todd PA-C Unavailable [phone] Radha Lomeli PHOTOGRAPHER FINISH BULB INSPECTOR Unavailable Jelena David OD Unavailable Pao Joseph RN Unavailable Unavailable Esha Grimm PA-C Unavailable [phone] Valery Veronica PA-C Unavailable Rey Tay MD Unavailable Rocky Zepeda DO Unavailable Philip Dumont MD Unavailable [phone] Meredith Carrera PA-C Unavailable [phone] Neil Kent MD Unavailable Juan Pablo Emmanuel MD Unavailable Audrey Waite PA-C Unavailable Valery Veronica PA-C Unavailable Herminia Hatch MD Unavailable Jelena David OD Unavailable [phone] Juan Pablo Emmanuel MD Unavailable Maru Man PA-C Unavailable [phone] Maru Man PA-C Unavailable [phone] Jelena David OD Unavailable Fabiano Correa NP Unavailable [phone] Walter Nowak MD Unavailable Liset Márquez MD Unavailable Lauren Coronado [facility] Unavailable [phone] Reason for Visit * Reason Onset Date Comments Appointment 02/13/2020 Anxiety Encounter Details Date Type Department Care Team (Late st Contact Info) Description 02/13/2020 [facility] [address] [address] Rakesh Cid PA-C [address] [place] [address] Appointment (Anxiety) Social History Tobacco [...] CDT Legal Sex Female 4:13 AM ELECTRIC STOVE INSTALLER Gender Identity Female 03/02/2021 5:45 PM [...] Description 04/30/2025 10:30 AM CDT Office Visit [facility] [address], [address] [place] [address] Liset Márquez MD [address] [facility] 300 [place] [address] 05/30/2025 2:45 PM ELECTRIC STOVE INSTALLER Office Visit [address] [phone] Fabiano Correa NP 6405 [place] [address] Walter Nowak MD 6405 [place], [place] 092845 08/07/2025 8:15 AM ELECTRIC STOVE INSTALLER Office Visit [facility] [address] [phone] Lucien Grimes MD [address] [phone] 08/21/2025 9:00 AM ELECTRIC STOVE INSTALLER Office Visit [facility] [address] [phone] Neil Kent MD [address] [place] [address] 10/09/2025 10:45 AM CDT Virtual Visit [facility] [place] [address] [place] [address] 4th [place] [phone] Meredith Carrera PA-C [address] [place] [address] 757455 documented as of this encounter Visit Diagnoses Not on filedocumented in this encounter Additional Health Concerns Infection Onset Date Last Indicated Resolved Time Rule Out COVID-19 07/30/2020 07/30/2020 07/30/2020 7:11 PM ELECTRIC STOVE INSTALLER Rule Out COVID-19 08/30/2020 08/30/2020 08/30/2020 5:05 PM ELECTRIC STOVE INSTALLER Rule Out COVID-19 09/24/2020 09/24/2020 09/24/2020 9:24 AM CDT Rule Out COVID-19 11/05/2020 11/05/2020 11/06/2020 1:09 PM CDT Rule Out COVID-19 05/11/2021 05/11/2021 05/13/2021 10:18 AM CDT Rule Out COVID-19 07/13/2021 07/13/2021 07/14/2021 3:04 PM ELECTRIC STOVE INSTALLER Rule Out COVID-19 07/18/2021 07/18/2021 07/20/2021 1:56 PM ELECTRIC STOVE INSTALLER COVID-19 07/18/2021 07/18/2021 08/08/2021 11:3 9 PM ELECTRIC STOVE INSTALLER Rule Out COVID-19 12/18/2021 12/18/2021 12/19/2021 11:34 AM CDT Rule Out COVID-19 02/24/2022 02/24/2022 02/25/2022 1:08 PM CDT Rule Out COVID-19 04/26/2022 04/26/2022 04/26/2022 6:47 AM CDT Rule Out COVID-19 05/17/2022 05/17/2022 05/17/2022 10:20 PM ELECTRIC STOVE INSTALLER Rule Out COVID-19 06/09/2022 06/09/2022 06/09/2022 9:35 AM ELECTRIC STOVE INSTALLER COVID-19 06/09/2022 06/09/2022 06/30/2022 11:4 1 PM ELECTRIC STOVE INSTALLER Rule Out COVID-19 11/10/2022 11/10/2022 11/11/2022 [...] Depression Total Score: 1 09/11/19 1:42 PM ELECTRIC STOVE INSTALLER documented as of this encounter Care Teams Gymnastics Coach Or Instructor Relationship Specialty Start Date End Date Rakesh Cid PA-C [address] [place] [place] [address] PCP - General Physician Hopper Operator - Medical 05/14/19 04/29/20 Marija Edgar APRN CNP PCP - General Nurse Practitioner 04/30/20 04/14/23 Esha Grimm PA-C [address] [place] [phone] PCP - General Family Medicine 05/04/23 Rakesh Cid PA-C [address] [place] [address] Assigned PCP 05/06/19 03/01/20 Lita Oseguera Personal Advocate & Liaison (PAL) 02/28/20 03/27/23 Rakesh Cid PA-C [address] [facility] [place] [address] Assigned PCP 03/02/20 06/07/20 Isaura Lamar RN Personal Advocate & Liaison (PAL) Family Practice 04/03/20 04/06/20 Lita Oseguera Personal Advocate & Liaison (PAL) 04/07/20 04/29/20 Chanelle Mccann APRN CNM [address] [place] [address] Assigned OBGYN Provider 05/02/2005/09 Lesley Guillermo, CHW Community Health Worker 05/30/20 06/08/20 yKara De La Fuente, RN Specialty Aerial Applicator Pilot Neurology 06/04/20 03/05/21 Marija Edgar APRN CNP Assigned PCP 06/08/20 04/29/23 Mynor Broussard MD [address] [place] [address] Assigned Surgical Provider 06/01/20 11/28/21 Keisha Dotson MD 909 [place] [address] Assigned Neuroscience Provider 06/04/20 04/01/23 Mary Mejia Financial Resource Worker 08/07/20 08/21/20 Stacey Briones, [facility] Lead Aerial Applicator Pilot Primary Care - CC 08/11/20 12/30/20 Lesley Guillermo, [facility] Community Health Worker 08/11/20 10/01/20 Mary Mejia Financial Resource Worker 09/02/20 10/06/20 Lita Oseguera Personal Advocate & Liaison (PAL) Family Medicine 09/10/20 09/21/20 Galo Burrell MD Assigned Heart and Vascular Provider 10/05/20 04/02/22 Cristina Wood Financial Resource Worker 10/07/20 10/14/20 Lesley Guillermo, [facility] Community Health Worker 10/23/20 12/30/20 Meredith Bedoya Financial Resource Worker 10/23/20 11/23/20 Cristina Wood Financial Resource Worker 02/09/21 02/09/21 Diana Desir, [facility] [address] [place] [address] Pharmacist Pharmacist 04/17/21 Rain Galaviz PA-C [address] [place] [address] [place] [address] Physician Hopper Operator Dermatology 04/28/21 Summer Lara MD [address] [place] [address] [place] 109864 Assigned OBGYN Provider 05/10/2105/23 Summer Lara MD [address] [facility] [place] [place] 937664 Assigned OBGYN Provider 05/31/21 Summer Lara MD [address] [place] [address] [place], [place] 106534 Assigned OBGYN Provider 05/24/2105/30 Tavia Wyatt MD [address] [place] [address] 583354 Dermatology 07/14/21 Johnny Murillo MD [address] [place], [place] 479064 Assigned Musculoskeletal Provider 08/30/21 03/17/22 Erica Farrell APRN BULB INSPECTOR 6405 [facility] [address] [place] [phone] Nurse Practitioner Cardiovascular Disease 09/09/21 Teresita Bean [facility] [address] [phone] Pharmacist Pharmacist 09/24/21 09/29/21 Tavia Wyatt MD [address] [place] [address] 363880 Assigned Surgical Provider 11/29/21 05/07/22 Diana Desir, [facility] 3033 [place] [address] Assigned MTM Pharmacist 01/02/22 Rich Barrett MD 3033 [place] [address] Physician Ophthalmology 01/21/22 Neil Kent MD 500 [place] [address] Dermatology 02/24/22 Roney Story DPM [address] [facility] [address] [place] [address] Assigned Musculoskeletal Provider 03/20/22 08/13/22 Erica Farrell APRN BULB INSPECTOR 1700 [place] [address] Assigned Heart and Vascular Provider 04/03/22 04/16/22 Diana Desir, [facility] [address] [place] [address] Assigned MTM Pharmacist 04/07/22 Jelena David OD [address] [facility] [address] Assigned Surgical Provider 05/08/22 10/08/22 Galo Burrell MD Assigned Heart and Vascular Provider 04/17/22 06/11/22 Livan Sharif MD [address] [facility] [address] [place] [address] Cardiovascular Disease 05/14/22 Livan Sharif MD [address] [place] [address] Assigned Heart and Vascular Provider 06/12/22 07/23/22 Catherine Cm MD [address] [address] [place] [address] Cardiovascular Disease 07/21/22 Valery Veronica, PA-C [address] [place] [address] Physician Hopper Operator Dermatology 07/21/22 Catherine Cm MD [address] [address] [place] [address] Assigned Heart and Vascular Provider 07/24/22 11/05/22 Johnny Murillo MD [address] [place] [address] 490444 Assigned Musculoskeletal Provider 08/14/22 10/08/22 Brea Quinn APRN BULB INSPECTOR [address] [place] [address] Nurse Practitioner Dermatology 09/21/22 Brea Quinn APRN BULB INSPECTOR [address] [place] [address] [place] [address] Assigned Surgical Provider 10/09/22 05/01/24 [place] [address] [address] [facility] 300 [place] [address] Assigned Musculoskeletal Provider 10/09/22 05/01/24 Livan Sharif MD [address] [address] [place] [address] Assigned Heart and Vascular Provider 11/06/22 11/12/22 Catherine Cm MD [address] [address] [place] [address] Assigned Heart and Vascular Provider 11/13/22 05/27/23 Sydnie Martinez RN Personal Advocate & Liaison (PAL) Family Medicine 03/28/23 07/31/23 Alfonso Renteria MD 5775 [facility] 200 [place] [address] Assigned Neuroscience Provider 04/02/23 09/29/24 Cheng Todd PA-C [address] [place] [address] Assigned PCP 04/30/23 07/15/23 Radha Lomeli, ARLENE BULB INSPECTOR [address] [place] [address] Assigned Heart and Vascular Provider 05/28/23 11/29/24 Jelena David OD [address] [facility] [address] Ophthalmology 06/15/23 Pao Joseph, RN Personal Advocate & Liaison (PAL) Nurse 08/01/23 11/07/23 Esha Grimm PA-C [address] [place] [phone] Assigned PCP 07/16/23 Valery Veronica PA-C [address] [place] [address] 638395 Physician Hopper Operator Dermatology 09/19/23 Rey Tay MD [address] [place] [address] [phone] MD Gastroenterology 09/20/23 Rocky Zepeda DO [address] [place] [address] 659135 Physician Gastroenterology 09/20/23 Philip Dumont MD [address] [place] [address] 880885 Physician Ophthalmology 09/22/23 Meredith Carrera PA-C [address] [place] [address] 132665 Assigned Gastroenterology Provider 11/01/23 Neil Kent MD [address] [place] [address] Dermatology 11/02/23 [place] [address] [place] [address] Neurological Surgery 12/26/23 Audrey Waite PA-C 500 [place] [address] Physician Hopper Operator Dermatology 02/28/24 Valery Veronica PA-C [address] [place] [address] Physician Hopper Operator Dermatology 04/10/24 Herminia Hatch MD [address] [place] [address] Assigned Rheumatology Provider 07/02/24 Jelena David OD [address] [place] [address] [place] [address] Ophthalmology 08/30/24 [place] [address] [place] [address] Assigned Neuroscience Provider 09/30/24 Maru Man PA-C [address] [place] [address] Physician Hopper Operator Dermatology 10/03/24 Maru Man PA-C [address] [place] [address] Physician Hopper Operator Dermatology 10/22/24 Jelena David OD [address] [place] [address] [place] [address] Assigned Surgical Provider 10/31/24 Fabiano Correa RESEARCH AND DEVELOPMENT DIRECTOR [address] [place] [address] Assigned Heart and Vascular Provider 11/30/24 Walter Nowak MD 6405 [place], [place] 682375 Physician Clinical Cardiac Electrophysiology 03/01/25 Liset Márquez MD [address] [address] supervisor sterile processing 03/13/25 Lauren Coronado, [facility] [address] [place] [address] Pharmacist Pharmacist 04/15/25 documented as of this encounter
--- OUTSIDE RECORDS SUMMARY | 2025-04-26 23:59 | XMS_ITS | Encounter Summary ---
Author Organization [facility] Address [address] [place] [address] Care Team Providers Care Cruise Agent Name Role Phone Lita Oseguera Unavailable Unavailable Marija Edgar APRN PURCHASING/RECEIVING Primary Care Provider + Marija Edgar APRN PURCHASING/RECEIVING Unavailable Mynor Broussard MD Unavailable [phone] Keisha Dotson MD Unavailable [phone] Galo Burrell MD Unavailable Unavailable Diana Desir [facility] Unavailable Rain Galaviz PA-C Unavailable [phone] Summer Lara MD Unavailable [phone] Tavia Wyatt MD Unavailable Johnny Murillo MD Unavailable [phone] Erica Farrell APRN PURCHASING/RECEIVING Unavailable Teresita Bean [facility] Unavailable [phone] Tavia Wyatt MD Unavailable Diana Desir [facility] Unavailable Rich Barrett MD Unavailable [phone] Neil Kent MD Unavailable Roney Story DPM Unavailable [phone] Erica Farrell HUMAN FACTORS ERGONOMIST PURCHASING/RECEIVING Unavailable Diana Desir [facility] Unavailable [phone] Jelena David OD Unavailable Galo Burrell MD Unavailable Unavailable Livan Sharif MD Unavailable + Livan Sharif MD Unavailable + Catherine Cm MD Unavailable + Valery Veronica PA-C Unavailable [phone] Catherine Cm MD Unavailable + Johnny Murillo MD Unavailable [phone] Brea Quinn HUMAN FACTORS ERGONOMIST PURCHASING/RECEIVING Unavailable [phone] Brea Quinn HUMAN FACTORS ERGONOMIST PURCHASING/RECEIVING Unavailable [phone] Jose Francisco Johnson MD Unavailable Livan Sharif MD Unavailable + IsCatherine hobbs MD Unavailable + Sydnie Martinez RN Unavailable Unavailable Alfonso Renteria MD Unavailable Esha Grimm-C Primary Care Provider Cheng Todd PA-C Unavailable Radha Lomeli HUMAN FACTORS ERGONOMIST PURCHASING/RECEIVING Unavailable [phone] Jelena David OD Unavailable Pao Joseph RN Unavailable Unavailable Esha Grimm-C Unavailable [phone] Valery Veronica PA-C Unavailable [phone] Rey Tay MD Unavailable Rocky Zepeda DO Unavailable Philip Dumont MD Unavailable [phone] Meredith Carrera PA-C Unavailable [phone] Neil Kent MD Unavailable Juan Pablo Emmanuel MD Unavailable [phone] Audrey Waite PA-C Unavailable [phone] Valery Veronica PA-C Unavailable [phone] Herminia Hatch MD Unavailable Jelena David OD Unavailable [phone] Juan Pablo Emmanuel MD Unavailable [phone] Maru Man PA-C Unavailable [phone] Maru Man PA-C Unavailable [phone] Jelena David OD Unavailable Fabiano Correa NP Unavailable [phone] Walter Nowak MD Unavailable Liset Márquez MD Unavailable Lauren Coronado [facility] Unavailable [phone] Encounter Details Date Type Department Care Team (Late st Contact Info) Description 07/14/2021 MyC Medical Advice [address] [address] Lauren Gan, RN Social History [...] in a custodial (including now)? No 08/11/2020 Holden Depression Scale Answer Date Recorded Holden [...] PM CDT Legal Sex Female 4:13 AM SPEED BELT SANDER TENDER Gender Identity Female 03/02/2021 5:45 PM CDT Sexual Orientation Straight 02/28/2020 12 :51 AM CDT COVID-19 Exposure Response Date Recorded In the last month, have you been in contact with someone who was confirmed or suspected to have Coronavirus / COVID-19? Yes 07/15/2021 12:15 PM SPEED BELT SANDER TENDER documented as of this encounter Plan of Treatment Upcoming Encounters Date Type Department Care Team (Late st Contact Info) Description 04/30/2025 10:30 AM CDT Office Visit [facility] [address], [address] [place] [phone] Liset Márquez MD [address] [facility] 300 [place] [address] 05/30/2025 2:45 PM SPEED BELT SANDER TENDER Office Visit [facility] 6405 [facility] [address] [place] [phone] Fabiano Correa, CYBER THREAT ANALYST 4135 [place], [place] [phone] Walter Nowak MD 8556 [place] [address] 08/07/2025 8:15 AM SPEED BELT SANDER TENDER Office Visit [facility] [place] [address] [address] Lucien Grimes MD [address] [phone] 08/21/2025 9:00 AM SPEED BELT SANDER TENDER Office Visit [facility] [address] [phone] Neil Kent MD 500 [place], [place] 48[address]95 10/09/2025 10:45 AM CDT Virtual Visit [facility] [place] 909 [facility] 4th [place] [phone] Meredith Carrera PA-Romana [address] [place] [address] 249115 documented as of this encounter Visit Diagnoses Not on filedocumented in this encounter Additional Health Concerns Infection Onset Date Last Indicated Resolved Time Rule Out COVID-19 07/13/2021 07/13/2021 07/14/2021 3:04 PM SPEED BELT SANDER TENDER Rule Out COVID-19 07/18/2021 07/18/2021 07/20/2021 1:56 PM SPEED BELT SANDER TENDER COVID-19 07/18/2021 07/18/2021 08/08/2021 11:3 9 PM SPEED BELT SANDER TENDER Rule Out COVID-19 12/18/2021 12/18/2021 12/19/2021 11:34 AM CDT Rule Out COVID-19 02/24/2022 02/24/2022 02/25/2022 1:08 PM CDT Rule Out COVID-19 04/26/2022 04/26/2022 04/26/2022 6:47 AM CDT Rule Out COVID-19 05/17/2022 05/17/2022 05/17/2022 10:20 PM SPEED BELT SANDER TENDER Rule Out COVID-19 06/09/2022 06/09/2022 06/09/2022 9:35 AM SPEED BELT SANDER TENDER COVID-19 06/09/2022 06/09/2022 06/30/2022 11:4 1 PM SPEED BELT SANDER TENDER Rule Out COVID-19 11/10/2022 11/10/2022 11/11/2022 [...] documented as of this encounter Care Teams Cruise Agent Relationship Specialty Start Date End Date Marija Edgar APRN PURCHASING/RECEIVING PCP - General Nurse Practitioner 04/30/20 04/14/23 Esha Grimm PA-C [address] [place] [phone] PCP - General Family Medicine 05/04/23 Lita Oseguera Personal Advocate & Liaison (PAL) 02/28/20 03/27/23 Marija Edgar APRN PURCHASING/RECEIVING Assigned PCP 06/08/20 04/29/23 Mynor Broussard MD 909 [place], [place] [phone] Assigned Surgical Provider 06/01/20 11/28/21 Keisha Dotson MD 9 [place], [place] 489305 Assigned Neuroscience Provider 06/04/20 04/01/23 aGlo Burrell MD Assigned Heart and Vascular Provider 10/05/20 04/02/22 [facility] [address] [place], [place] [phone] Pharmacist Pharmacist 04/17/21 Rain Galaviz PA-C [address] [place] [address] [place] [address] Physician Pulp Roller Dermatology 04/28/21 Summer Lara MD [address] [place] [address] Assigned OBGYN Provider 05/31/21 Tavia Wyatt MD [address] [place] [address] Dermatology 07/14/21 Jonhny Murillo MD [address] [place] [address] Assigned Musculoskeletal Provider 08/30/21 03/17/22 Erica Farrell APRN PURCHASING/RECEIVING 6405 [facility] [address] [place] [address] Nurse Practitioner Cardiovascular Disease 09/09/21 Teresita Bean [facility] [address] [place] [address] Pharmacist Pharmacist 09/24/21 09/29/21 Tavia Wyatt MD [address] [place] [address] Assigned Surgical Provider 11/29/21 05/07/22 Diana Desir, [facility] [address] [place] [address] Assigned MTM Pharmacist 01/02/22 Rich Barrett MD 30[address] [place] [address] Physician Ophthalmology 01/21/22 Neil Kent MD 500 [place] [address] Dermatology 02/24/22 Roney Story DPM [address] [facility] [address] [place] [address] Assigned Musculoskeletal Provider 03/20/22 08/13/22 Erica Farrell APRN PURCHASING/RECEIVING 1700 [place] [address] Assigned Heart and Vascular Provider 04/03/22 04/16/22 [facility] 30[address] [place] [address] Assigned MTM Pharmacist 04/07/22 Jelena David OD [address] [facility] [place] [address] Assigned Surgical Provider 05/08/22 10/08/22 Galo Burrell MD Assigned Heart and Vascular Provider 04/17/22 06/11/22 Livan Sharif MD [address] [address] [place] 222675 Cardiovascular Disease 05/14/22 Livan Sahrif MD [address] [place] [address] [place] 367915 Assigned Heart and Vascular Provider 06/12/22 07/23/22 Catherine Cm MD [address] [facility] [address] [place] [address] Cardiovascular Disease 07/21/22 Valery Veronica PAUcheC [address] [place] [address] 202415 Physician Pulp Roller Dermatology 07/21/22 Catherine Cm MD 6405 [facility] [address] [place] [address] Assigned Heart and Vascular Provider 07/24/22 11/05/22 Johnny Murillo MD [address] [place] [address] Assigned Musculoskeletal Provider 08/14/22 10/08/22 Brea Quinn APRN PURCHASING/RECEIVING [address] [place] [address] Nurse Practitioner Dermatology 09/21/22 Brea Quinn APRN PURCHASING/RECEIVING [address] [place] [address] [place] [address] Assigned Surgical Provider 10/09/22 05/01/24 [place] [address] [place] [address] Assigned Musculoskeletal Provider 10/09/22 05/01/24 Livan Sharif MD [address] [facility] [address] [place] [address] Assigned Heart and Vascular Provider 11/06/22 11/12/22 Catherine Cm MD [address] [address] [place] [address] Assigned Heart and Vascular Provider 11/13/22 05/27/23 Sydnie Martinez RN Personal Advocate & Liaison (PAL) Family Medicine 03/28/23 07/31/23 Alfonso Renteria MD 5775 [facility] 200 [place] [address] Assigned Neuroscience Provider 04/02/23 09/29/24 Cheng Todd PA-C [address] [place] [address] [phone] Assigned PCP 04/30/23 07/15/23 Radha Lomeli APRN PURCHASING/RECEIVING [address] [place] [address] Assigned Heart and Vascular Provider 05/28/23 11/29/24 Jelena David OD [address] [facility] [place] [address] Ophthalmology 06/15/23 Pao Jospeh, VJ Personal Advocate & Liaison (PAL) Nurse 08/01/23 11/07/23 Esha Grimm PA-C [address] [place] [phone] Assigned PCP 07/16/23 Valery Veronica PA-C [address] [place] [address] Physician Pulp Roller Dermatology 09/19/23 Rey Tay MD [address] [place] [address] MD Gastroenterology 09/20/23 Rocky Zepeda DO [address] [place] [address] Physician Gastroenterology 09/20/23 Philip Dumont MD [address] [place] [address] Physician Ophthalmology 09/22/23 Meredith Carrera PA-C [address] [place] [address] Assigned Gastroenterology Provider 11/01/23 Neil Kent MD [address] [address] Dermatology 11/02/23 [place] [address] [address] [facility] [place], [place] 459[address] Neurological Surgery 12/26/23 Audrey Waite PA-C [address] [place] [address] 852975 Physician Pulp Roller Dermatology 02/28/24 Valery Veronica PA-C 637757 [place], [place] [address] Physician Pulp Roller Dermatology 04/10/24 Herminia Hatch MD [address] [place] [address] [phone] Assigned Rheumatology Provider 07/02/24 Jelena David, OD 3305 [facility] [place] [address] Ophthalmology 08/30/24 [place] [address] [place] [address] Assigned Neuroscience Provider 09/30/24 Maru Man PA-C [address] [place] [address] Physician Pulp Roller Dermatology 10/03/24 Maru Man PA-C [address] [place] [address] Physician Pulp Roller Dermatology 10/22/24 Jelena David, OD 3305 [facility] [place] [address] Assigned Surgical Provider 10/31/24 Fabiano Correa, CYBER THREAT ANALYST [address] [place] 427785 Assigned Heart and Vascular Provider 11/30/24 Walter Nowak MD [address] [place] [address] Physician Clinical Cardiac Electrophysiology 03/01/25 Liset Márquez MD [address] [place] [address] vice president business development 03/13/25 Lauren Coronado, [facility] 909 [place] [address] Pharmacist Pharmacist 04/15/25 documented as of this encounter
--- OUTSIDE RECORDS SUMMARY | 2025-04-26 23:59 | XMS_ITS | Encounter Summary ---
Author Organization [facility] Address [address] [place] [address] Care Team Providers Care Local Delivery Truck Driver Name Role Phone Lita Oseguera Unavailable Unavailable Marija Edgar APRN RECORDS MANAGEMENT ENGINEER Primary Care Provider + Marija Edgar APRN RECORDS MANAGEMENT ENGINEER Unavailable [phone] Keisha Dotson MD Unavailable Diana Desir [facility] Unavailable Rain Galaviz PA-C Unavailable Tavia Wyatt MD Unavailable Erica Farrell APRN RECORDS MANAGEMENT ENGINEER Unavailable Rich Barrett MD Unavailable [phone] Neil Kent MD Unavailable Diana Desir [facility] Unavailable Livan Sharif MD Unavailable Catherine Cm MD Unavailable + Valery Veronica PA-C Unavailable [phone] Brea Quinn INTERNET SPECIALIST RECORDS MANAGEMENT ENGINEER Unavailable Brea Quinn INTERNET SPECIALIST RECORDS MANAGEMENT ENGINEER Unavailable Jose Francisco Johnson MD Unavailable Livan Sharif MD Unavailable Catherine Cm MD Unavailable + Sydnie Martinez RN Unavailable Unavailable Alfonso Renteria MD Unavailable [phone] Esha Grimm PA-C Primary Care Provider Cheng Todd PA-C Unavailable ArmaniRadha APRN RECORDS MANAGEMENT ENGINEER Unavailable Jelena David OD Unavailable [phone] Pao Joseph RN Unavailable Unavailable Esha Grimm PA-C Unavailable [phone] Valery Veronica PA-C Unavailable Rey Tay MD Unavailable Rocky Zepeda DO Unavailable Philip Dumont MD Unavailable [phone] Meredith Carrera PA-C Unavailable [phone] Neil Kent MD Unavailable Juan Pablo Emmanuel MD Unavailable Audrey Waite PA-C Unavailable Valery Veronica PA-C Unavailable Herminia Hatch MD Unavailable Jelena David OD Unavailable [phone] Juan Pablo Emmanuel MD Unavailable [phone] Maru Man PA-C Unavailable [phone] Maru Man PA-C Unavailable [phone] Jelena David OD Unavailable [phone] Fabiano Correa NP Unavailable [phone] Walter Nowak MD Unavailable Liset Márquez MD Unavailable Lauren Coronado [facility] Unavailable [phone] Encounter Details Date Type Department Care Team (Late st Contact Info) Description 11/10/2022 MyC Medical Advice [facility] [address] [place] [phone] Lauren Claudio PA-C [address] [place] [address] Social History Tobacco Use Types Packs/Day [...] How often do you attend episcopal or bahai serv ices? Never 09/22/2021 Do [...] a nursing home (including now)? No 09/22/2021 [place] Depression Scale Answer Date Recorded [place] Depression Score 5 01/14/2021 Last EPDS Self Harm Result Not on file 01/14 Education Answer Date Recorded What is the highest level of school you have completed or the highest degree you have received? 12th grade 08/07/2020 Comments No Sex and Gender Information Value Date Recorded Sex Assigned at Female 03/02/2021 5:45 PM CDT Legal Sex Female 4:13 AM TEACHER EARLY CHILDHOOD DEVELOPMENT Gender Identity Female 03/02/2021 5:45 PM CDT [...] Description 04/30/2025 10:30 AM CDT Office Visit [facility] [address], [address] [place] [address] Liset Márquez MD [address] [place] [address] 05/30/2025 2:45 PM TEACHER EARLY CHILDHOOD DEVELOPMENT Office Visit [facility] 6[address] [facility] [address] [place] [phone] Fabiano Correa NP [address] [facility] [place] [address] Walter Nowak MD [address] [facility] [place] [address] 08/07/2025 8:15 AM TEACHER EARLY CHILDHOOD DEVELOPMENT Office Visit [facility] [address] [place] [phone] Lucien Grimes MD [address] [place] [address] 08/21/2025 9:00 AM TEACHER EARLY CHILDHOOD DEVELOPMENT Office Visit [facility] [address] [phone] Neil [place] MD 500 [place], [place] 827605 10/09/2025 10:45 AM CDT Virtual Visit [facility] [place] [address] [place] [address] 4th [place] [phone] Meredith Carrera PA-C [address] [place] [address] documented as of this encounter Visit Diagnoses [...] as of this encounter Care Teams Local Delivery Truck Driver Relationship Specialty Start Date End Date Marija Edgar APRN RECORDS MANAGEMENT ENGINEER PCP - General Nurse Practitioner 04/30/20 04/14/23 Esha Grimm PA-C [address] [place] [phone] PCP - General Family Medicine 05/04/23 Lita Oseguera Personal Advocate & Liaison (PAL) 02/28/20 03/27/23 Marija Edgar APRN RECORDS MANAGEMENT ENGINEER Assigned PCP 06/08/20 04/29/23 Keisha Dotson MD 9 [place], [place] 866435 Assigned Neuroscience Provider 06/04/20 04/01/23 Diana Desir, [facility] [place] [address] Pharmacist Pharmacist 04/17/21 Rain Galaviz PA-C [address] [place] [address] [address] [place] [address] Physician Hospice Rn Dermatology 04/28/21 Tavia Wyatt MD [address] [place] [address] [address] [place] [id number] Dermatology 07/14/21 Erica Farrell APRN RECORDS MANAGEMENT ENGINEER [address] [place] [address] Nurse Practitioner Cardiovascular Disease 09/09/21 Rich Barrett MD [address] [place] [address] Physician Ophthalmology 01/21/22 Neil Kent MD 500 [place], [place] 085155 Dermatology 02/24/22 Diana Desir, [facility] 30[address] [place], [place] 414916 Assigned MTM Pharmacist 04/07/22 Livan Sharif MD [address] [place] [address] Cardiovascular Disease 05/14/22 Catherine Cm MD [address] [place] 48[address] Cardiovascular Disease 07/21/22 Valery Veronica, PA-C 909 [place], [place] 786585 Physician Hospice Rn Dermatology 07/21/22 Brea Quinn APRN RECORDS MANAGEMENT ENGINEER 500 [place], [place] 250135 Nurse Practitioner Dermatology 09/21/22 Brea Quinn APRN RECORDS MANAGEMENT ENGINEER 6401 [facility] [place] [address] Assigned Surgical Provider 10/09/22 05/01/24 [place] [address] [place] [address] Assigned Musculoskeletal Provider 10/09/22 05/01/24 Livan Sharif MD [address] [facility]00 [place] [address] Assigned Heart and Vascular Provider 11/06/22 11/12/22 Catherine Cm MD [address] [place] [id number] [place] [address] Assigned Heart and Vascular Provider 11/13/22 05/27/23 Sydnie Martinez, RN Personal Advocate & Liaison (PAL) Family Medicine 03/28/23 07/31/23 Alfonso Renteria MD 5775 [facility] 200 [place] [address] Assigned Neuroscience Provider 04/02/23 09/29/24 Cheng Todd PA-C [address] [place] [address] [phone] Assigned PCP 04/30/23 07/15/23 Radha Lomeli APRN RECORDS MANAGEMENT ENGINEER [address] [place] 548535 Assigned Heart and Vascular Provider 05/28/23 11/29/24 Jelena David Radha, SONJA [address] [facility] [place] [address] MD Ophthalmology 06/15/23 Pao Joseph, RN Personal Advocate & Liaison (PAL) Nurse 08/01/23 11/07/23 Esha Grimm PA-C [address] [place] [phone] Assigned PCP 07/16/23 Valery Veronica PA-C [address] [place] [address] 047525 Physician Hospice Rn Dermatology 09/19/23 Rey Tay MD [address] [place] [address] 804425 Gastroenterology 09/20/23 Rocky Zepeda DO [address] [place] [address] 955415 Physician Gastroenterology 09/20/23 Philip Dumont MD [address] [place] [address] 823495 Physician Ophthalmology 09/22/23 Meredith Carrera PA-C [address] [place] [address] 988195 Assigned Gastroenterology Provider 11/01/23 Neil Kent MD [address] 980940 Dermatology 11/02/23 [place] [address] [place] [address] Neurological Surgery 12/26/23 Audrey Waite PA-C 500 [place] [address] Physician Hospice Rn Dermatology 02/28/24 Valery Veronica PA-C 020404 [place], [place] [address] Physician Hospice Rn Dermatology 04/10/24 Herminia Hatch MD [address] [place] [address] [phone] Assigned Rheumatology Provider 07/02/24 Jelena David, SONJA [address] [place] [address] [place] [address] Ophthalmology 08/30/24 [place] [address] [place] [address] Assigned Neuroscience Provider 09/30/24 Maru Man PA-C [address] [place] [address] Physician Hospice Rn Dermatology 10/03/24 Maru Man PA-C [address] [place] [address] Physician Hospice Rn Dermatology 10/22/24 Jelena David OD 3305 [facility] [place] [address] Assigned Surgical Provider 10/31/24 Fabiano Correa NP [address] [place] [address] Assigned Heart and Vascular Provider 11/30/24 Walter Nowak MD [address] [place] [address] Physician Clinical Cardiac Electrophysiology 03/01/25 Liset Márquez MD [address] [facility] [address] [address] tube depatcher 03/13/25 Lauren Coronado, [facility] [address] [place] [address] [phone] Pharmacist Pharmacist 04/15/25 documented as of this encounter
--- OUTSIDE RECORDS SUMMARY | 2025-04-26 23:59 | XMS_ITS | Encounter Summary ---
Author Organization [facility] Address [address] [place] [address] Care Team Providers Care Wildland Fire Fighter Specialist Name Role Phone Lita Oseguera Unavailable Unavailable Marija Edgar APRN PHOTOGRAPHIC EDITOR Primary Care Provider + Marija Edgar APRN PHOTOGRAPHIC EDITOR Unavailable Mynor Broussard MD Unavailable [phone] Keisha Dotson MD Unavailable [phone] Galo Burrell MD Unavailable Unavailable Diana Desir [facility] Unavailable [phone] Rain Galaviz PA-C Unavailable Summer Lara MD Unavailable [phone] Tavia Wyatt MD Unavailable Johnny Murillo MD Unavailable Erica Farrell APRN PHOTOGRAPHIC EDITOR Unavailable Teresita Bean [facility] Unavailable [phone] Tavia Wyatt MD Unavailable Diana Desir [facility] Unavailable [phone] Rich Barrett MD Unavailable [phone] Neil Kent MD Unavailable Roney Story DPM Unavailable [phone] Erica Farrell CLASS B TRUCK DRIVER PHOTOGRAPHIC EDITOR Unavailable Diana Desir [facility] Unavailable [phone] Jelena David OD Unavailable Galo Burrell MD Unavailable Unavailable Livan Sharif MD Unavailable + Livan Sharif MD Unavailable + Catherine Cm MD Unavailable + Valery Veronica PA-C Unavailable [phone] Catherine Cm MD Unavailable + Johnny Murillo MD Unavailable [phone] Brea Quinn CLASS B TRUCK DRIVER PHOTOGRAPHIC EDITOR Unavailable [phone] Brea Quinn CLASS B TRUCK DRIVER PHOTOGRAPHIC EDITOR Unavailable [phone] Jose Francisco Johnson MD Unavailable Livan Sharif MD Unavailable + IsCatherine hobbs MD Unavailable + Sydnie Martinez RN Unavailable Unavailable Alfonso Renteria MD Unavailable Esha Grimm-C Primary Care Provider Cheng Todd PA-C Unavailable Radha Lomeli CLASS B TRUCK DRIVER PHOTOGRAPHIC EDITOR Unavailable [phone] Jelena David OD Unavailable [phone] Pao Joseph RN Unavailable Unavailable Esha Grimm-C Unavailable [phone] Valery Veronica PA-C Unavailable [phone] Rey Tay MD Unavailable Rocky Zepeda DO Unavailable Philip Dumont MD Unavailable [phone] Meredith Carrera PA-C Unavailable [phone] Neil Kent MD Unavailable Juan Pablo Emmanuel MD Unavailable Audrey Waite PA-C Unavailable [phone] Valery Veronica PA-C Unavailable Herminia Hatch MD Unavailable Jelena David OD Unavailable Juan Pablo Emmanuel MD Unavailable [phone] Maru Man PA-C Unavailable [phone] Maru Man PA-C Unavailable [phone] Jelena David OD Unavailable Fabiano Correa CRITICAL CARE PHYSICIAN ASSISTANT Unavailable [phone] Walter Nowak MD Unavailable Liset Márquez MD Unavailable Lauren Coronado [facility] Unavailable [phone] Encounter Details Date Type Department Care Team (Late st Contact Info) Description 08/04/2021 [facility] [address] [phone] [facility] Social History Tobacco Use Types Packs/Day Years [...] Answer Date Recorded PHQ-2 Score 0 04/02/2021 [facility] Occupat ional Health - Occupational Stress [...] a long term (including now)? No 08/11/2020 [place] Depression Scale Answer Date Recorded [place] Depression Score 5 01/14/2021 Last EPDS Self Harm Result Not on file 01/14 Education Answer Date Recorded What is the highest level of school you have completed or the highest degree you have received? 12th grade 08/07/2020 Comments No Sex and Gender Information Value Date Recorded Sex Assigned at Female 03/02/2021 5:45 PM CDT Legal Sex Female 4:13 AM CAPPER MACHINE OPERATOR Gender Identity Female 03/02/2021 5:45 PM CDT Sexual Orientation Straight 02/28/2020 12 :51 AM CDT COVID-19 Exposure Response Date Recorded In the last month, have you been in contact with someone who was confirmed or suspected to have Coronavirus / COVID-19? No / Unsure 08/03/2021 2:24 PM CAPPER MACHINE OPERATOR documented as of this encounter Plan of Treatment Upcoming Encounters Date Type Department Care Team (Late st Contact Info) Description 04/30/2025 10:30 AM CDT Office Visit [facility] [address], [address] [place] [phone] Liset Márquez MD [address] [facility] [address] [place] [address] 05/30/2025 2:45 PM CAPPER MACHINE OPERATOR Office Visit [facility] [address] [facility] [address] [place] [phone] Fabiano Correa, CRITICAL CARE PHYSICIAN ASSISTANT [address] [place], [place] 5[address] Walter Nowak MD [address] [place] [address] 08/07/2025 8:15 AM CAPPER MACHINE OPERATOR Office Visit [facility] [address] [phone] Lucien Grimes MD [address] [id number] 08/21/2025 9:00 AM CAPPER MACHINE OPERATOR Office Visit [facility] [address] [phone] Neil Kent MD 500 [place], [place] [phone] 10/09/2025 10:45 AM CDT Virtual Visit [facility] [place] [address] [facility] 4th [place] [phone] Meredith Carrera PA-Romana [address] [place] [address] documented as of this encounter Visit Diagnoses Not on filedocumented in this encounter Additional Health Concerns Infection Onset Date Last Indicated Resolved Time COVID-19 07/18/2021 07/18/2021 08/08/2021 11:3 9 PM CAPPER MACHINE OPERATOR Rule Out COVID-19 12/18/2021 12/18/2021 12/19/2021 11:34 AM CDT Rule Out COVID-19 02/24/2022 02/24/2022 02/25/2022 1:08 PM CDT Rule Out COVID-19 04/26/2022 04/26/2022 04/26/2022 6:47 AM CDT Rule Out COVID-19 05/17/2022 05/17/2022 05/17/2022 10:20 PM CAPPER MACHINE OPERATOR Rule Out COVID-19 06/09/2022 06/09/2022 06/09/2022 9:35 AM CAPPER MACHINE OPERATOR COVID-19 06/09/2022 06/09/2022 06/30/2022 11:4 1 PM CAPPER MACHINE OPERATOR Rule Out COVID-19 11/10/2022 11/10/2022 [...] documented as of this encounter Care Teams Wildland Fire Fighter Specialist Relationship Specialty Start Date End Date Marija Edgar APRN PHOTOGRAPHIC EDITOR PCP - General Nurse Practitioner 04/30/20 04/14/23 Esha Grimm PA-C [address] [place] [phone] PCP - General Family Medicine 05/04/23 Lita Oseguera Personal Advocate & Liaison (PAL) 02/28/20 03/27/23 Marija Edgar APRN PHOTOGRAPHIC EDITOR Assigned PCP 06/08/20 04/29/23 Mynor Broussard MD [address] [place] [address] [phone] Assigned Surgical Provider 06/01/20 11/28/21 Keisha Dotson MD [address] [place] [address] [phone] Assigned Neuroscience Provider 06/04/20 04/01/23 Galo Burrell MD Assigned Heart and Vascular Provider 10/05/20 04/02/22 [facility] [address] [place] [address] Pharmacist Pharmacist 04/17/21 Rain Galaviz PA-C [address] [place] [address] [place] [address] Physician Circular Saw Operator Dermatology 04/28/21 Summer Lara MD [address] [place] [address] Assigned OBGYN Provider 05/31/21 Tavia Wyatt MD [address] [place] [address] Dermatology 07/14/21 Johnny Murillo MD [address] [place] [address] Assigned Musculoskeletal Provider 08/30/21 03/17/22 Erica Farrell APRN PHOTOGRAPHIC EDITOR [address] [facility] [address] [place] [address] Nurse Practitioner Cardiovascular Disease 09/09/21 [facility] [address] [place] [phone] Pharmacist Pharmacist 09/24/21 09/29/21 Tavia Wyatt MD [address] [place] [address] Assigned Surgical Provider 11/29/21 05/07/22 [facility] [address] [place] [address] Assigned MTM Pharmacist 01/02/22 Rich Barrett MD [address] [email or web address] [address] Physician Ophthalmology 01/21/22 Neil Kent MD [address] [place] [address] Dermatology 02/24/22 Roney Story DPM [address] [facility] [address] [place] [address] Assigned Musculoskeletal Provider 03/20/22 08/13/22 Erica Farrell APRN PHOTOGRAPHIC EDITOR [address] [place] [address] Assigned Heart and Vascular Provider 04/03/22 04/16/22 Diana Desir, [facility] [address] [place] [address] Assigned MTM Pharmacist 04/07/22 Jelena David OD [address] [facility] [place] [address] Assigned Surgical Provider 05/08/22 10/08/22 Galo Burrell MD Assigned Heart and Vascular Provider 04/17/22 06/11/22 Livan Sharif MD [address] [place] [address] Cardiovascular Disease 05/14/22 Livan Sharif MD [address] [place] [address] [place] [address] Assigned Heart and Vascular Provider 06/12/22 07/23/22 Catherine Cm MD [address] [address] [place] 430[address] Cardiovascular Disease 07/21/22 Valery Veronica PA-C [address] [place], [place] [address] Physician Circular Saw Operator Dermatology 07/21/22 Catherine Cm MD [address] [place] [phone] [place] [address] Assigned Heart and Vascular Provider 07/24/22 11/05/22 Johnny Murillo MD [address] [place] [address] Assigned Musculoskeletal Provider 08/14/22 10/08/22 Brea Quinn APRN PHOTOGRAPHIC EDITOR [address] [place] [address] Nurse Practitioner Dermatology 09/21/22 Brea Qunin APRN PHOTOGRAPHIC EDITOR [address] [place] [address] Assigned Surgical Provider 10/09/22 05/01/24 [place] [address] [address] Assigned Musculoskeletal Provider 10/09/22 05/01/24 Livan Sharif MD [address] [place] [id number] [place] [address] Assigned Heart and Vascular Provider 11/06/22 11/12/22 Catherine Cm MD [address] [place] [address] Assigned Heart and Vascular Provider 11/13/22 05/27/23 Sydnie Martinez RN Personal Advocate & Liaison (PAL) Family Medicine 03/28/23 07/31/23 Alfonso Renteria MD [address] [facility] 200 [place] [address] Assigned Neuroscience Provider 04/02/23 09/29/24 Cheng Todd PA-C [address] [place] [address] [phone] Assigned PCP 04/30/23 07/15/23 Rahda Lomeli APRN PHOTOGRAPHIC EDITOR [address] [place] [address] Assigned Heart and Vascular Provider 05/28/23 11/29/24 Jelena David OD [address] [facility] [place] [address] Ophthalmology 06/15/23 Pao Joseph RN Personal Advocate & Liaison (PAL) Nurse 08/01/23 11/07/23 Esha Grimm PA-C [address] [place] [phone] Assigned PCP 07/16/23 Valery Veronica PA-C [address] [place] [address] Physician Circular Saw Operator Dermatology 09/19/23 Rey Tay MD [address] [place] [address] MD Gastroenterology 09/20/23 Rocky Zepeda DO [address] [place] [address] Physician Gastroenterology 09/20/23 Philip [place] MD [address] [place] [address] Physician Ophthalmology 09/22/23 Meredith Carrera PA-C [address] [place] [address] Assigned Gastroenterology Provider 11/01/23 Neil Kent MD [address] [place] [address] Dermatology 11/02/23 [place] [address] [place] [address] [place] [address] [address] Neurological Surgery 12/26/23 Audrey Waite PA-C [address] [place] [address] Physician Circular Saw Operator Dermatology 02/28/24 Valery Veronica PA-C [id number] [place] [address] Physician Circular Saw Operator Dermatology 04/10/24 Hermiina Hatch MD [address] [place] [address] [phone] Assigned Rheumatology Provider 07/02/24 Jelena David, OD [address] [facility] [place] [address] Ophthalmology 08/30/24 [place] [address] [place] [address] Assigned Neuroscience Provider 09/30/24 Maru Man PA-C [address] [place] [address] Physician Circular Saw Operator Dermatology 10/03/24 Maru Man PA-C [address] [place] [address] Physician Circular Saw Operator Dermatology 10/22/24 Jelena [place], OD [address] [facility] [place] [address] Assigned Surgical Provider 10/31/24 Fabiano Correa, CRITICAL CARE PHYSICIAN ASSISTANT [address] [place] [address] Assigned Heart and Vascular Provider 11/30/24 Walter Nowak MD [address] [place] [address] Physician Clinical Cardiac Electrophysiology 03/01/25 Liset Márquez MD [address] [facility] 300 [place] [address] house painter helper 03/13/25 Lauren Coronado, [facility] 9 [place], [place] [address] Pharmacist Pharmacist 04/15/25 documented as of this encounter
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
--- OUTSIDE RECORDS SUMMARY | 2025-04-26 23:59 | XMS_ITS | Encounter Summary ---
Author Organization [facility] Address [address] [place] [address] Care Team Providers Care Maintenance Mechanic Millwright Name Role Phone Lita Oseguera Unavailable Unavailable Marija Edgar APRN THREAD WEAVER Primary Care Provider + Marija Edgar APRN THREAD WEAVER Unavailable Mynor Broussard MD Unavailable Keisha Dotson MD Unavailable Galo Burrell MD Unavailable Unavailable Diana Desir [facility] Unavailable Rain Galaviz PA-C Unavailable Summer Lara MD Unavailable [phone] Tvaia Wyatt MD Unavailable Johnny Murillo MD Unavailable Erica Farrell APRN THREAD WEAVER Unavailable Teresita Bean [facility] Unavailable Tavia Wyatt MD Unavailable Diana Desir [facility] Unavailable Rich Barrett MD Unavailable [phone] Neil Kent MD Unavailable Roney Story DPM Unavailable [phone] Erica Farrell WAITER/WAITRESS ROOM SERVICE THREAD WEAVER Unavailable Diana Desir [facility] Unavailable [phone] Jelena David OD Unavailable aGlo Burrell MD Unavailable Unavailable Livan Sharif MD Unavailable + Livan Sharif MD Unavailable + Catherine Cm MD Unavailable + Valery Veronica PA-C Unavailable [phone] Catherine Cm MD Unavailable + Johnny Murillo MD Unavailable [phone] Brea Quinn WAITER/WAITRESS ROOM SERVICE THREAD WEAVER Unavailable [phone] Brea Quinn WAITER/WAITRESS ROOM SERVICE THREAD WEAVER Unavailable [phone] Jose Francisco Johnson MD Unavailable Liavn Sharif MD Unavailable + IsCatherine hobbs MD Unavailable + Sydnie Martinez RN Unavailable Unavailable Alfonso Renteria MD Unavailable Esha Grimm-C Primary Care Provider Cheng Todd PA-C Unavailable Radha Lomeli WAITER/WAITRESS ROOM SERVICE THREAD WEAVER Unavailable [phone] Jelena David OD Unavailable Pao Joseph RN Unavailable Unavailable Esha Grimm-C Unavailable [phone] Valery Veronica PA-C Unavailable [phone] Rey Tay MD Unavailable Rocky Zepeda DO Unavailable Philip Dumont MD Unavailable Meredith Carrera PA-C Unavailable [phone] Neil Kent MD Unavailable Juan Pablo Emmanuel MD Unavailable Audrey Waite PA-C Unavailable Valery Veronica PA-C Unavailable Herminia Hatch MD Unavailable Jelena David OD Unavailable Juan Pablo Emmanuel MD Unavailable Maru Man PA-C Unavailable Maru Man PA-C Unavailable [phone] Jelena David OD Unavailable Fabiano Correa A AND P MECHANIC Unavailable Walter Nowak MD Unavailable Liset Márquez MD Unavailable Lauren Coronado [facility] Unavailable [phone] Encounter Details Date Type Department Care Team (Late st Contact Info) Description 06/03/2021 MyC Medical Advice [address] [address] Diana Desir, [facility] [address] [place] [address] Social History Tobacco Use Types [...] in a fdc (including now)? No 08/11/2020 [place] Depression Scale Answer Date Recorded [place] Depression Score 5 01/14/2021 Last EPDS Self Harm Result Not on file 01/14 Education Answer Date Recorded What is the highest level of school you have completed or the highest degree you have received? 12th grade 08/07/2020 Comments No Sex and Gender Information Value Date Recorded Sex Assigned at Female 03/02/2021 5:45 PM CDT Legal Sex Female 4:13 AM LIBERAL ARTS AND HUMANITIES CHAIR Gender Identity Female 03/02/2021 5:45 PM [...] 04/30/2025 10:30 AM CDT Office Visit [facility] [address] [place] [phone] Liset Márquez MD [address] [place] [address] 05/30/2025 2:45 PM LIBERAL ARTS AND HUMANITIES CHAIR Office Visit [facility] [place] [phone] [address] [phone] Fabiano Correa NP 6405 [place], [place] 607005 Walter Nowak MD 6408 [place], [place] 594025 08/07/2025 8:15 AM LIBERAL ARTS AND HUMANITIES CHAIR Office Visit [facility] [place] [address] [phone] Lucien Grimes MD [address] [phone] 08/21/2025 9:00 AM LIBERAL ARTS AND HUMANITIES CHAIR Office Visit [facility] [address] [phone] Neil [place] MD 500 [place] [address] 10/09/2025 10:45 AM CDT Virtual Visit [facility] Gastroenterology [facility] 9[address] [facility] [address] 4th [place] [phone] Meredith Carrera PA-C 909 [place] [address] documented as of this encounter Visit Diagnoses Not on filedocumented in this encounter Additional Health Concerns Infection Onset Date Last Indicated Resolved Time Rule Out COVID-19 07/13/2021 07/13/2021 07/14/2021 3:04 PM LIBERAL ARTS AND HUMANITIES CHAIR Rule Out COVID-19 07/18/2021 07/18/2021 07/20/2021 1:56 PM LIBERAL ARTS AND HUMANITIES CHAIR COVID-19 07/18/2021 07/18/2021 08/08/2021 11:3 9 PM LIBERAL ARTS AND HUMANITIES CHAIR Rule Out COVID-19 12/18/2021 12/18/2021 12/19/2021 11:34 AM CDT Rule Out COVID-19 02/24/2022 02/24/2022 02/25/2022 1:08 PM CDT Rule Out COVID-19 04/26/2022 04/26/2022 04/26/2022 6:47 AM CDT Rule Out COVID-19 05/17/2022 05/17/2022 05/17/2022 10:20 PM LIBERAL ARTS AND HUMANITIES CHAIR Rule Out COVID-19 06/09/2022 06/09/2022 06/09/2022 9:35 AM LIBERAL ARTS AND HUMANITIES CHAIR COVID-19 06/09/2022 06/09/2022 06/30/2022 11:4 1 PM LIBERAL ARTS AND HUMANITIES CHAIR Rule Out COVID-19 11/10/2022 11/10/2022 11/11/2022 [...] as of this encounter Care Teams Maintenance Mechanic Millwright Relationship Specialty Start Date End Date Marija Edgar APRN THREAD WEAVER PCP - General Nurse Practitioner 04/30/20 04/14/23 Esha Grimm PA-C [address] [place] [phone] PCP - General Family Medicine 05/04/23 Lita Oseguera Personal Advocate & Liaison (PAL) 02/28/20 03/27/23 Marija Edgar APRN THREAD WEAVER Assigned PCP 06/08/20 04/29/23 Mynor Broussard MD 9 [place], [place] 270585 Assigned Surgical Provider 06/01/20 11/28/21 Keisha Dotson MD 909 [place] [address] Assigned Neuroscience Provider 06/04/20 04/01/23 Galo Burrell MD Assigned Heart and Vascular Provider 10/05/20 04/02/22 Diana Desir, [facility] 3033 [place], [place] 856066 Pharmacist Pharmacist 04/17/21 Rain Galaviz PA-C [address] [facility] [place] [address] Physician Senior Water Resources Engineer Dermatology 04/28/21 Summer Lara MD [address] [place] [address] 515844 Assigned OBGYN Provider 05/31/21 Tavia Wyatt MD [address] [place] [address] 556154 Dermatology 07/14/21 Johnny Murillo MD [address] [place] [address] Assigned Musculoskeletal Provider 08/30/21 03/17/22 Erica Farrell APRN THREAD WEAVER 6[address] [facility] [address] [place] [address] Nurse Practitioner Cardiovascular Disease 09/09/21 Teresita Bean [facility] [address] [place] [address] Pharmacist Pharmacist 09/24/21 09/29/21 Tavia Wyatt MD [address] [place], [place] [phone] Assigned Surgical Provider 11/29/21 05/07/22 Diana Desir, [facility] [address] [place] [address] Assigned MTM Pharmacist 01/02/22 Rich Barrett MD 3033 [place], [place] 088566 Physician Ophthalmology 01/21/22 Neil Kent MD 500 [place], [place] 567765 Dermatology 02/24/22 [place] [address] [facility] [address] [place], [place] 411277 Assigned Musculoskeletal Provider 03/20/22 08/13/22 Erica Farrell APRN THREAD WEAVER [address] [place] [address] Assigned Heart and Vascular Provider 04/03/22 04/16/22 Diana Desir, [facility] [address] [place] [address] Assigned MTM Pharmacist 04/07/22 Jelena David OD [address] [place] [address] [place] [address] Assigned Surgical Provider 05/08/22 10/08/22 Galo Burrell MD Assigned Heart and Vascular Provider 04/17/22 06/11/22 Livan Sharif MD [address] [facility] [address] [place] [address] Cardiovascular Disease 05/14/22 Livan Sharif MD [address] [facility] [address] [place] [address] Assigned Heart and Vascular Provider 06/12/22 07/23/22 Catherine Cm MD [address] [place] 1421300 [place] [address] Cardiovascular Disease 07/21/22 Valery Veronica, PA-C [address] [place] [address] 494035 Physician Senior Water Resources Engineer Dermatology 07/21/22 Catherine Cm MD [address] [place] 1421300 [place] [address] Assigned Heart and Vascular Provider 07/24/22 11/05/22 Johnny Murillo MD [address] [place] [address] 798814 Assigned Musculoskeletal Provider 08/14/22 10/08/22 Brea Quinn APRN THREAD WEAVER [address] [place] [address] 301635 Nurse Practitioner Dermatology 09/21/22 Brea Quinn APRN THREAD WEAVER [address] [place] [address] [place] 320412 Assigned Surgical Provider 10/09/22 05/01/24 [place] [address] [place] [address] [phone] Assigned Musculoskeletal Provider 10/09/22 05/01/24 Livan Sharif MD [address] [place], [place] 936205 Assigned Heart and Vascular Provider 11/06/22 11/12/22 Catherine Cm MD [address] [place], [place] 404745 Assigned Heart and Vascular Provider 11/13/22 05/27/23 Sydnie Martinez, RN Personal Advocate & Liaison (PAL) Family Medicine 03/28/23 07/31/23 Alfonso Renteria MD 5775 [facility] 200 [place] [address] Assigned Neuroscience Provider 04/02/23 09/29/24 Cheng Todd PA-C [address] [place] [address] [phone] Assigned PCP 04/30/23 07/15/23 Radha Lomeli APRN THREAD WEAVER [address] [place] [address] Assigned Heart and Vascular Provider 05/28/23 11/29/[address] [facility] [facility] [place] [address] Ophthalmology 06/15/23 Pao Joseph, VJ Personal Advocate & Liaison (PAL) Nurse 08/01/23 11/07/23 Esha Grimm PAUcheC 18[address] [place] [phone] Assigned PCP 07/16/23 Valery Veronica PA-C 9 [place], [place] 273105 Physician Senior Water Resources Engineer Dermatology 09/19/23 Rey Tay MD [address] [place] [address] 935775 MD Gastroenterology 09/20/23 Rocky Zepeda DO [address] [place] [address] 499415 Physician Gastroenterology 09/20/23 Philip Dumont MD [address] [place] [address] 630415 Physician Ophthalmology 09/22/23 Meredith Carrera PA-C [address] [place] [address] 889215 Assigned Gastroenterology Provider 11/01/23 Neil Kent MD [address] 0585[address] Dermatology 11/02/23 [place] [address] [place] [address] Neurological Surgery 12/26/23 Audrey Waite PA-C [address] [place] [address] Physician Senior Water Resources Engineer Dermatology 02/28/24 Valery Veronica PA-C [address] [place] [address] Physician Senior Water Resources Engineer Dermatology 04/10/24 Herminia Hatch MD [facility]5 [place] [address] Assigned Rheumatology Provider 07/02/24 Jelena David OD [address] [place] [address] [place] [address] Ophthalmology 08/30/24 [place] [address] [place] [address] Assigned Neuroscience Provider 09/30/24 Maru Man PA-C [address] [place] [address] Physician Senior Water Resources Engineer Dermatology 10/03/24 Maru Man PA-C [address] [place] [address] Physician Senior Water Resources Engineer Dermatology 10/22/24 Jelena David OD [address] [place] [address] [place] [address] Assigned Surgical Provider 10/31/24 Fabiano Correa NP [address] [place] 678265 Assigned Heart and Vascular Provider 11/30/24 Walter Nowak MD [address] [place] 236005 Physician Clinical Cardiac Electrophysiology 03/01/25 Liset Márquez MD [address] [place] [address] blister rust eradicator 03/13/25 Lauren Coronado, [facility] [address] [place] [address] Pharmacist Pharmacist 04/15/25 documented as of this encounter
--- OUTSIDE RECORDS SUMMARY | 2025-04-27 | XMS_ITS | Encounter Summary ---
Author Organization [facility] Address [address] [place] [address] Care Team Providers Care Sand And Gravel Plant Operator Name Role Phone Lita Oseguera Unavailable Unavailable Marija Edgar APRN FREIGHT ADJUSTER Primary Care Provider + Marija Edgar APRN FREIGHT ADJUSTER Unavailable Keisha Dotson MD Unavailable Diana Desir [facility] Unavailable Rain Galaviz PA-C Unavailable Tavia Wyatt MD Unavailable Erica Farrell APRN FREIGHT ADJUSTER Unavailable Rich Barrett MD Unavailable [phone] Neil Kent MD Unavailable Diana Desir [facility] Unavailable Livan Sharif MD Unavailable Catherine Cm MD Unavailable + Valery Veronica PA-C Unavailable Catherine Cm MD Unavailable + Brea Quinn FINANCIAL COMPLIANCE OFFICER FREIGHT ADJUSTER Unavailable Brea Quinn FINANCIAL COMPLIANCE OFFICER FREIGHT ADJUSTER Unavailable [phone] Jose Francisco Johnson MD Unavailable Livan Sharif MD Unavailable ChivoraynaCatherine boothe MD Unavailable + Sydnie Martinez RN Unavailable Unavailable Alfonso Renteria MD Unavailable Esha Grimm PA-C Primary Care Provider Cheng Todd PA-C Unavailable [phone] Radha Lomeli FINANCIAL COMPLIANCE OFFICER FREIGHT ADJUSTER Unavailable [phone] Jelena David OD Unavailable [phone] Pao Joseph RN Unavailable Unavailable Esha Grimm PA-C Unavailable [phone] Valery Veronica PA-C Unavailable Rey Tay MD Unavailable Rocky Zepeda DO Unavailable Philip Dumont MD Unavailable [phone] Meredith Carrera PA-C Unavailable [phone] Neil Kent MD Unavailable Juan Pablo Emmanuel MD Unavailable [phone] Audrey Waite PA-C Unavailable [phone] Valery Veronica PA-C Unavailable Herminia Hatch MD Unavailable Jelena David OD Unavailable Juan Pablo Emmanuel MD Unavailable [phone] Maru Man PA-C Unavailable [phone] Maru Man PA-C Unavailable [phone] Jelena David OD Unavailable Fabiano Correa NP Unavailable [phone] Walter Nowak MD Unavailable Liset Márquez MD Unavailable Lauren Coronado [facility] Unavailable [phone] Encounter Details Date Type Department Care Team (Late st Contact Info) Description 10/22/2022 MyC Medical Advice [facility] [address] [place] [phone] Lauren Claudio PA-C [address] [place] [address] Social History Tobacco Use Types [...] How often do you attend mormonism or spiritism serv ices? Never 09/22/2021 Do [...] [facility] of Occupat ional [facility] - Occupational Stress [...] in a snf (including now)? No 09/22/2021 [place] Depression Scale Answer Date Recorded [place] Depression Score 5 01/14/2021 Last EPDS Self Harm Result Not on file 01/14 Education Answer Date Recorded What is the highest level of school you have completed or the highest degree you have received? 12th grade 08/07/2020 Comments No Sex and Gender Information Value Date Recorded Sex Assigned at Female 03/02/2021 5:45 PM CDT Legal Sex Female 4:13 AM CORROSION CONTROL TECHNICIAN Gender Identity Female 03/02/2021 5:45 [...] 10:30 AM CDT Office Visit [facility] [address], [address] [place] [address] Liset Márquez MD [address] [place] [address] 05/30/2025 2:45 PM CORROSION CONTROL TECHNICIAN Office Visit [facility] Heart [facility] 6405 [facility] [address] [place] [phone] Fabiano Correa NP 5905 [facility] [place] [phone] Walter Nowak MD [address] [place] [address] 08/07/2025 8:15 AM CORROSION CONTROL TECHNICIAN Office Visit [facility] Heart [facility] [place] 6405 [facility] [address] [place] [phone] Lucien Grimes MD [address] [place] [address] 08/21/2025 9:00 AM CORROSION CONTROL TECHNICIAN Office Visit [facility] [address] [phone] Neil [place] MD [address] [place] [address] 10/09/2025 10:45 AM CDT Virtual Visit [facility] Gastroenterology Clinic [address]th [place] [phone] Meredith Carrera PA-C [address] [place] [address] 784555 documented as of this encounter Visit Diagnoses [...] documented as of this encounter Care Teams Sand And Gravel Plant Operator Relationship Specialty Start Date End Date Marija Edgar APRN FREIGHT ADJUSTER PCP - General Nurse Practitioner 04/30/20 04/14/23 Esha Grimm PA-C [address] [place] [phone] PCP - General Family Medicine 05/04/23 Lita Oseguera Personal Advocate & Liaison (PAL) 02/28/20 03/27/23 Marija Edgar APRN FREIGHT ADJUSTER Assigned PCP 06/08/20 04/29/23 Keisha Dotson MD 909 [place] [address] Assigned Neuroscience Provider 06/04/20 04/01/23 Diana Desir, [facility] 3033 [place] [address] Pharmacist Pharmacist 04/17/21 Rain Galaviz PA-C [address] [place] [address] [place] [address] Physician Auditor In Charge Dermatology 04/28/21 Tavia Wyatt MD [address] [place] [address] [address] [facility] [place] [place] [address] Dermatology 07/14/21 Erica Farrell APRN FREIGHT ADJUSTER [address] [place] [address] Nurse Practitioner Cardiovascular Disease 09/09/21 Rich Barrett MD [address] [place], [place] 2128[address] Physician Ophthalmology 01/21/22 Neil [place] MD [address] [place] [address] Dermatology 02/24/22 [facility] [address] [place] [address] Assigned [facility] Pharmacist 04/07/22 Livan Sharif MD [address] [place] [address] Cardiovascular Disease 05/14/22 Catherine Cm MD [address] [place] [address] Cardiovascular Disease 07/21/22 Valery Veronica, PA-C [address] [place] [address] Physician Auditor In Charge Dermatology 07/21/22 Catherine Cm MD [address] [place] [address] Assigned Heart and Vascular Provider 07/24/22 11/05/22 Brea Qunin APRN FREIGHT ADJUSTER 500 [place] [address] Nurse Practitioner Dermatology 09/21/22 Brea Quinn APRN FREIGHT ADJUSTER 6401 [facility] [place] [address] Assigned Surgical Provider 10/09/22 05/01/24 [place] [address] [place] [address] Assigned Musculoskeletal Provider 10/09/22 05/01/24 Livan Sharif MD 6405 [facility] [address] [place] [address] Assigned Heart and Vascular Provider 11/06/22 11/12/22 Catherine Cm MD 6405 [facility] S [facility] [address] [place] 119555 Assigned Heart and Vascular Provider 11/13/22 05/27/23 Sydnie Martinez RN Personal Advocate & Liaison (PAL) Family Medicine 03/28/23 07/31/23 Alfonso Renteria MD [address] [facility] 200 [place], [place] 0[address]856 Assigned Neuroscience Provider 04/02/23 09/29/24 Cheng Todd PA-C [address] [place] [address] [phone] Assigned PCP 04/30/23 07/15/23 Radha Lomeli APRN FREIGHT ADJUSTER 6405 [facility] [address] [place] [address] Assigned Heart and Vascular Provider 05/28/23 11/29/24 Jelena David OD [address] [facility] [place] [address] MD Ophthalmology 06/15/23 Pao Joseph, VJ Personal Advocate & Liaison (PAL) Nurse 08/01/23 11/07/23 Esha Grimm PA-C [address] [place] [phone] Assigned PCP 07/16/23 Valery Veronica PA-C [address] [place] [address] 956175 Physician Auditor In Charge Dermatology 09/19/23 Rey Tay MD [address] [place] [address] [phone] Gastroenterology 09/20/23 Rocky Zepeda DO [address] [place] [address] Physician Gastroenterology 09/20/23 Philip Dumont MD [address] [place] [address] Physician Ophthalmology 09/22/23 Meredith Carrera PA-C 909 [place] [address] Assigned Gastroenterology Provider 11/01/23 Neil [place] MD [address] [place] [address] Dermatology 11/02/23 [place] [address] [place] [address] Neurological Surgery 12/26/23 Audrey Waite PA-C [address] [place] [address] Physician Auditor In Charge Dermatology 02/28/24 Valery Veronica PA-C 454314 [address] [place] [address] Physician Auditor In Charge Dermatology 04/10/24 Herminia Hatch MD [address] [place] [address] [phone] Assigned Rheumatology Provider 07/02/24 Jelena David OD [address] [place] [address] [place] [address] Ophthalmology 08/30/24 [place] [address] [facility] [place] [address] Assigned Neuroscience Provider 09/30/24 Maru Man PA-C [address] [place] [address] Physician Auditor In Charge Dermatology 10/03/24 Maru Man PA-C [address], [place] 935900 Physician Auditor In Charge Dermatology 10/22/24 Jelena David OD [address] [facility] [place] [address] Assigned Surgical Provider 10/31/24 Fabiano Correa NP [address] [place] 416805 Assigned Heart and Vascular Provider 11/30/24 Walter Nowak MD [address] [place] 548495 Physician Clinical Cardiac Electrophysiology 03/01/25 Liset Márquez MD [address] 192094 bottling line attendant 03/13/25 Lauren Coronado, [facility] [address] [place] [address] 480615 Pharmacist Pharmacist 04/15/25 documented as of this encounter
--- OUTSIDE RECORDS SUMMARY | 2025-04-27 | XMS_ITS | Encounter Summary ---
Author Organization [place] Address [address] [place] [address] Care Team Providers Care Dial Polisher Name Role Phone Lita Oseguera Unavailable Unavailable Marija Edgar BULLION WEIGHER STRATEGIC ACCOUNT DIRECTOR Primary Care Provider + Chanelle Mccann BULLION WEIGHER CNM Unavailab le Marija Edgar APRN STRATEGIC ACCOUNT DIRECTOR Unavailable Mynor Broussard MD Unavailable [phone] Keisha Dotson MD Unavailable Galo Burrell MD Unavailable Unavailable Diana Desir [facility] Unavailable Rain Galaviz PA-C Unavailable Summer Lara MD Unavailable [phone] Summer Lara MD Unavailable [phone] Summer Lara MD Unavailable [phone] Tavia Wyatt MD Unavailable Johnny Murillo MD Unavailable Erica Farrell BULLION WEIGHER STRATEGIC ACCOUNT DIRECTOR Unavailable Teresita Bean [facility] Unavailable Tavia Wyatt MD Unavailable DesirDiana [facility] Unavailable Rich Barrett MD Unavailable Neil Kent MD Unavailable Roney StoryM Unavailable [phone] Erica Farrell APRN STRATEGIC ACCOUNT DIRECTOR Unavailable Diana Desir [facility] Unavailable [phone] Jelena David OD Unavailable Galo Burrell MD Unavailable Unavailable Livan Sharif MD Unavailable Livan Sharif MD Unavailable Catherine Cm MD Unavailable + Valery VeronicaC Unavailable [phone] Catherine Cm MD Unavailable + Johnny Murillo MD Unavailable [phone] Brea Quinn BULLION WEIGHER STRATEGIC ACCOUNT DIRECTOR Unavailable [phone] Brea Quinn BULLION WEIGHER STRATEGIC ACCOUNT DIRECTOR Unavailable [phone] Jose Francisco Johnson MD Unavailable Livan Sharif MD Unavailable Catherine Cm MD Unavailable + Sydnie Martinez RN Unavailable Unavailable Alfonso Renteria MD Unavailable Esha GrimmC Primary Care Provider Cheng ToddC Unavailable [phone] Radha Lomeli APRN STRATEGIC ACCOUNT DIRECTOR Unavailable [phone] Jelena David OD Unavailable Pao Joseph RN Unavailable Unavailable [place], Esha M PA-C Unavailable [phone] Valery Veronica PA-C Unavailable Rey Tay MD Unavailable ZepedaRocky woodard DO Unavailable Philip Dumont MD Unavailable Meredith Carrera PA-C Unavailable [phone] Neil Kent MD Unavailable Juan Pablo Emmanuel MD Unavailable Audrey Waite PA-C Unavailable JeremíasValery damon PA-C Unavailable Herminia Hatch MD Unavailable Jelena David OD Unavailable Juan Pablo Emmanuel MD Unavailable Maru Man PA-C Unavailable Maru Man PA-C Unavailable Jelena David OD Unavailable Fabiano Correa NP Unavailable Walter Nowak MD Unavailable Liset Márquez MD Unavailable Lauren Coronado [facility] Unavailable Encounter Details Date Type Department Care Team (Late st Contact Info) Description 04/17/2021 [facility] [address] [address] Marija Edgar APRN STRATEGIC ACCOUNT DIRECTOR [address] [place] [address] Social History Tobacco Use Types [...] Date Recorded PHQ-2 Score 0 04/02/2021 [facility] [...] a senior living (including now)? No 08/11/2020 Austin Depression Scale Answer Date Recorded Austin [...] PM CDT Legal Sex Female 4:13 AM CEMENT BOAT AND BARGE LOADER Gender Identity Female 03/02/2021 5:45 PM [...] Description 04/30/2025 10:30 AM CDT Office Visit [facility] [address], [address] [place] [phone] Liset Márquez MD [address] [facility] 300 [place], [place] 73[address] 05/30/2025 2:45 PM CEMENT BOAT AND BARGE LOADER Office Visit [facility] [address] [phone] Fabiano Correa, LONG TERM CARE SOCIAL WORKER 6405 [place], [place] 843955 Walter Nowak MD [address] [place], [place] 129035 08/07/2025 8:15 AM CEMENT BOAT AND BARGE LOADER Office Visit [facility] [address] [phone] Lucien Grimes MD [address] 206615 08/21/2025 9:00 AM CEMENT BOAT AND BARGE LOADER Office Visit [facility] [address] [phone] Neil Kent MD 500 [place] [address] 10/09/2025 10:45 AM CDT Virtual Visit [facility] [address] [place] [phone] Meredith Carrera PA-C [address] [place] [address] documented as of this encounter Visit Diagnoses Not on filedocumented in this encounter Additional Health Concerns Infection Onset Date Last Indicated Resolved Time Rule Out COVID-19 05/11/2021 05/11/2021 05/13/2021 10:18 AM CDT Rule Out COVID-19 07/13/2021 07/13/2021 07/14/2021 3:04 PM CEMENT BOAT AND BARGE LOADER Rule Out COVID-19 07/18/2021 07/18/2021 07/20/2021 1:56 PM CEMENT BOAT AND BARGE LOADER COVID-19 07/18/2021 07/18/2021 08/08/2021 11:3 9 PM CEMENT BOAT AND BARGE LOADER Rule Out COVID-19 12/18/2021 12/18/2021 12/19/2021 11:34 AM CDT Rule Out COVID-19 02/24/2022 02/24/2022 02/25/2022 1:08 PM CDT Rule Out COVID-19 04/26/2022 04/26/2022 04/26/2022 6:47 AM CDT Rule Out COVID-19 05/17/2022 05/17/2022 05/17/2022 10:20 PM CEMENT BOAT AND BARGE LOADER Rule Out COVID-19 06/09/2022 06/09/2022 06/09/2022 9:35 AM CEMENT BOAT AND BARGE LOADER COVID-19 06/09/2022 06/09/2022 06/30/2022 11:4 1 PM CEMENT BOAT AND BARGE LOADER Rule Out COVID-19 11/10/2022 11/10/2022 11/11/2022 [...] documented as of this encounter Care Teams Dial Polisher Relationship Specialty Start Date End Date Marija Edgar APRN STRATEGIC ACCOUNT DIRECTOR PCP - General Nurse Practitioner 04/30/20 04/14/23 Esha Grimm PA-C [address] [place] [phone] PCP - General Family Medicine 05/04/23 Lita Oseguera Personal Advocate & Liaison (PAL) 02/28/20 03/27/23 Chanelle Mccann APRN CNM [address] [place] [address] 459777 Assigned OBGYN Provider 05/02/2005/09 Marija Edgar APRN STRATEGIC ACCOUNT DIRECTOR Assigned PCP 06/08/20 04/29/23 Mynor Broussard MD 9 [place], [place] 520575 Assigned Surgical Provider 06/01/20 11/28/21 Keisha Dotson MD 909 [place] [address] Assigned Neuroscience Provider 06/04/20 04/01/23 Galo Burrell MD Assigned Heart and Vascular Provider 10/05/20 04/02/22 [facility] [address] [place] [address] Pharmacist Pharmacist 04/17/21 Rain Galaviz PA-C [address] [facility] [address] Physician Site Safety Representative Dermatology 04/28/21 Summer Lara MD [address] [place] [address] 670394 Assigned OBGYN Provider 05/10/2105/23 Summer Lara MD [address] [place] [address] 156354 Assigned OBGYN Provider 05/31/21 2 Summer Lara MD [address] [place] [address] 459944 Assigned OBGYN Provider 05/24/2105/30 Tavia Wyatt MD [address] [place] [address] 135284 Dermatology 07/14/21 Johnny Murillo MD [address] [place] [address] Assigned Musculoskeletal Provider 08/30/21 03/17/22 Erica Farrell APRN STRATEGIC ACCOUNT DIRECTOR 6405 [facility] [address] [place], [place] [phone] Nurse Practitioner Cardiovascular Disease 09/09/21 Teresita Bean, [facility] [address] [place] [phone] Pharmacist Pharmacist 09/24/21 09/29/21 Tavia Wyatt MD [address] [place] [address] Assigned Surgical Provider 11/29/21 05/07/22 [facility] 3033 [place] [address] Assigned MTM Pharmacist 01/02/22 Rich Barrett MD 3033 [place] [address] Physician Ophthalmology 01/21/22 Neil Kent MD 500 [place], [place] 568335 Dermatology 02/24/22 Roney Story DPM 101[address] [facility] [address] [place], [place] 012127 Assigned Musculoskeletal Provider 03/20/22 08/13/22 Erica Farrell APRN STRATEGIC ACCOUNT DIRECTOR 1700 [place] [address] Assigned Heart and Vascular Provider 04/03/22 04/16/22 Diana Desir, [facility] 3033 [place] [address] Assigned MTM Pharmacist 04/07/22 Jelena David OD [address] [facility] [place] [address] Assigned Surgical Provider 05/08/22 10/08/22 Galo Burrell MD Assigned Heart and Vascular Provider 04/17/22 06/11/22 Livan Sharif MD [address] [place] [address] Cardiovascular Disease 05/14/22 Livan Sharif MD [address] [place] [address] Assigned Heart and Vascular Provider 06/12/22 07/23/22 Catherine Cm MD [address] [place] [address] Cardiovascular Disease 07/21/22 Valery Veronica PA-C 909 [place] [address] Physician Site Safety Representative Dermatology 07/21/22 Catherine Cm MD [address] [place] [address] Assigned Heart and Vascular Provider 07/24/22 11/05/22 Johnny Murillo MD [address] [place] [address] Assigned Musculoskeletal Provider 08/14/22 10/08/22 Brea Quinn APRN STRATEGIC ACCOUNT DIRECTOR 500 [place] [address] Nurse Practitioner Dermatology 09/21/22 Brea Quinn APRN STRATEGIC ACCOUNT DIRECTOR 6401 [place] [address] Assigned Surgical Provider 10/09/22 05/01/24 [place] [address] [address] Assigned Musculoskeletal Provider 10/09/22 05/01/24 Livan Sharif MD 6405 [facility] [address] [place] [address] Assigned Heart and Vascular Provider 11/06/22 11/12/22 Catherine Cm MD 6[address] [facility] [address] [place] [address]95 Assigned Heart and Vascular Provider 11/13/22 05/27/23 Sydnie Martinez RN Personal Advocate & Liaison (PAL) Family Medicine 03/28/23 07/31/23 Alfonso Renteria MD 5775 [facility] [address] 200 [place] [address] Assigned Neuroscience Provider 04/02/23 09/29/24 Cheng Todd PA-C [address] [place] [address] Assigned PCP 04/30/23 07/15/23 Radha Lomeli APRN STRATEGIC ACCOUNT DIRECTOR 6405 [facility] [address] [place] [address] Assigned Heart and Vascular Provider 05/28/23 11/29/24 Jelena David OD [address] [facility] [place] [address] Ophthalmology 06/15/23 Pao Joseph, VJ Personal Advocate & Liaison (PAL) Nurse 08/01/23 11/07/23 Esha Grimm PA-C [address] [place] [phone] Assigned PCP 07/16/23 Valery Veronica PA-C [address] [place] [address] Physician Site Safety Representative Dermatology 09/19/23 Rey Tay MD [address] [place] [address] 313695 Gastroenterology 09/20/23 Rocky Zepeda DO [address] [place] [address] Physician Gastroenterology 09/20/23 Philip Dumont MD 516 [place] [address] Physician Ophthalmology 09/22/23 Meredith Carrera PA-C [address] [place] [address] Assigned Gastroenterology Provider 11/01/23 Neil Kent MD [address] [address] Dermatology 11/02/23 [place] [address] [place], [place] [address] Neurological Surgery 12/26/23 Audrey Waite PA-C [address] [place] [address] Physician Site Safety Representative Dermatology 02/28/24 Valery Veronica PA-C [address]181 [address] [place] [address] Physician Site Safety Representative Dermatology 04/10/24 Herminia Hatch MD [address] [place] [address] [phone] Assigned Rheumatology Provider 07/02/24 [place] [address] [place] [address] [place] [address] Ophthalmology 08/30/24 [place] [address] [place] [address] Assigned Neuroscience Provider 09/30/24 Maru Man PA-C [address] [place] [address] Physician Site Safety Representative Dermatology 10/03/24 Maru Man PA-C [address] [place] [address] Physician Site Safety Representative Dermatology 10/22/24 Jelena David OD [address] [facility] [place] [address] Assigned Surgical Provider 10/31/24 Fabiano Correa NP [address]405 [place] [address] Assigned Heart and Vascular Provider 11/30/24 Walter Nowak MD [address] [place] 151165 Physician Clinical Cardiac Electrophysiology 03/01/25 Liset Márquez MD [address] [address] color depositing machine tender 03/13/25 Lauren Coronado, [facility] 909 [place], [place] 558315 Pharmacist Pharmacist 04/15/25 documented as of this encounter
--- OUTSIDE RECORDS SUMMARY | 2025-04-27 | XMS_ITS | Encounter Summary ---
Author Organization [place] Address [address] [place] [address] Care Team Providers Care Rn Paralegal Name Role Phone Lita Oseguera Unavailable Unavailable Marija Edgar APRN FOSTER WINDER Primary Care Provider + Marija Edgar APRN FOSTER WINDER Unavailable Keisha Dotson MD Unavailable Diana Desir [facility] Unavailable [phone] Rain Galaviz PA-C Unavailable Tavia Wyatt MD Unavailable Erica Farrell APRN FOSTER WINDER Unavailable Rihc Barrett MD Unavailable [phone] Neil Kent MD Unavailable Diana Desir [facility] Unavailable Livan Sharif MD Unavailable Catherine Cm MD Unavailable + Valery Veronica PA-C Unavailable Catherine Cm MD Unavailable + Brea Quinn FORGING OPERATOR FOSTER WINDER Unavailable [phone] Brea Quinn FORGING OPERATOR FOSTER WINDER Unavailable [phone] Jose Francisco Johnson MD Unavailable Livan Sharif MD Unavailable ChivoraynaCatherine boothe MD Unavailable + Sydnie Martinez RN Unavailable Unavailable Alfonso Renteria MD Unavailable Esha Grimm PA-C Primary Care Provider Cheng Todd PA-C Unavailable [phone] Radha Lomeli FORGING OPERATOR FOSTER WINDER Unavailable [phone] Jelena David OD Unavailable [phone] Pao Joseph RN Unavailable Unavailable Esha Grimm PA-C Unavailable [phone] Valery Veronica PA-C Unavailable Rey Tay MD Unavailable Rocky Zepeda DO Unavailable Philip Dumont MD Unavailable [phone] Meredith Carrera PA-C Unavailable [phone] Neil Kent MD Unavailable Juan Pablo Emmanuel MD Unavailable Audrey Waite PA-C Unavailable [phone] Valery Veronica PA-C Unavailable Herminia Hatch MD Unavailable Jelena David OD Unavailable [phone] Juan Pablo Emmanuel MD Unavailable Maru Man PA-C Unavailable [phone] Maru Man PA-C Unavailable [phone] Jelena David OD Unavailable Fabiano Correa NP Unavailable [phone] Walter Nowak MD Unavailable Liset Márquez MD Unavailable Ajay Coronadoloida Delgadillo [facility] Unavailable [phone] Encounter Details Date Type Department Care Team (Late st Contact Info) Description 10/22/2022 MyC Medical Advice [facility] [place] [address] [place] [address] [address] [place], [place] [phone] [place] [address] [place] [address] Social History Tobacco Use Types [...] often do you attend roman catholic or judaism serv ices? Never 09/22/2021 Do [...] Date Recorded PHQ-2 Score 1 10/11/2022 [facility]at [facility] [...] a group home (including now)? No 09/22/2021 Baxter Depression Scale [...] PM CDT Legal Sex Female 4:13 AM FRONT END ASSISTANT Gender Identity Female 03/02/2021 5:45 PM [...] Description 04/30/2025 10:30 AM CDT Office Visit [facility] [address], [address] [place] [address] Liset Márquez MD [address] [facility] 300 [place] [address] 05/30/2025 2:45 PM FRONT END ASSISTANT Office Visit [facility] 6405 [facility] [address] [place] [phone] Fabiano Correa, BRYCE 6405 [facility] [place] [id number] Walter Nowak MD 4915 [place], [place] 6866[address] 08/07/2025 8:15 AM FRONT END ASSISTANT Office Visit [facility] 6405 [facility] [address] [place] [phone] Lucien Grimes MD [address] [place] [phone] [place] 642135 08/21/2025 9:00 AM FRONT END ASSISTANT Office Visit [facility] [address] [address] Neil Kent MD [address] [place] [address] 086855 10/09/2025 10:45 AM CDT Virtual Visit [facility] [address] 4th [place] [phone] Meredith Carrera PA-C [address] [place] [address] 099915 documented as of this encounter Visit Diagnoses [...] as of this encounter Care Teams Rn Paralegal Relationship Specialty Start Date End Date Marija Edgar APRN FOSTER WINDER PCP - General Nurse Practitioner 04/30/20 04/14/23 Esha Grimm PA-C [address] [place] [address]450[address] PCP - General Family Medicine 05/04/23 Lita Oseguera Personal Advocate & Liaison (PAL) 02/28/20 03/27/23 Marija Edgar APRN FOSTER WINDER Assigned PCP 06/08/20 04/29/23 Keisha Dotson MD 909 [place] [address] Assigned Neuroscience Provider 06/04/20 04/01/23 Diana Desir, [facility] [address] [place] [address] Pharmacist Pharmacist 04/17/21 Rain Galaviz PA-C [address] [place] [address] [address] [place] [address] Physician Needle Molder Dermatology 04/28/21 Tavia Wyatt MD [address] [place] [address] [address] [place] [address] Dermatology 07/14/21 Erica Farrell APRN FOSTER WINDER [address] [place] [address] Nurse Practitioner Cardiovascular Disease 09/09/21 Rich Barrett MD [address] [place] 972255 Physician Ophthalmology 01/21/22 Neil Kent MD 500 [place], [place] 884415 Dermatology 02/24/22 Diana Desir, [facility] [address] [place] [address] Assigned MTM Pharmacist 04/07/22 Livan Sharif MD [address] [place] [address] Cardiovascular Disease 05/14/22 Catherine Cm MD [address] [address] [place] [address] Cardiovascular Disease 07/21/22 Valery Veronica, PAUcheC 909 [place] [address] Physician Needle Molder Dermatology 07/21/22 Catherine Cm MD [address] [place] [address] Assigned Heart and Vascular Provider 07/24/22 11/05/22 Brea Quinn APRN FOSTER WINDER [address] [place] [address] 193665 Nurse Practitioner Dermatology 09/21/22 Brea Quinn APRN FOSTER WINDER [address] [place] [address] Assigned Surgical Provider 10/09/22 05/01/24 [place] [address] [place] [address] Assigned Musculoskeletal Provider 10/09/22 05/01/24 Livan Sharif MD [address] [address] [place] [address] Assigned Heart and Vascular Provider 11/06/22 11/12/22 Catherine Cm MD [address] [place] [address] Assigned Heart and Vascular Provider 11/13/22 05/27/23 Sydnie Martinez, VJ Personal Advocate & Liaison (PAL) Family Medicine 03/28/23 07/31/23 Alfonso Renteria MD 5775 [facility] [address] [place] [address] Assigned Neuroscience Provider 04/02/23 09/29/24 Cheng Todd PA-C [address] [place] [address] [phone] Assigned PCP 04/30/23 07/15/23 Radha Lomeli APRN FOSTER WINDER 6405 [facility] [address] [place] [address] Assigned Heart and Vascular Provider 05/28/23 11/29/24 Jelena David OD [address] [facility] [place] [address] Ophthalmology 06/15/23 Pao Joseph, VJ Personal Advocate & Liaison (PAL) Nurse 08/01/23 11/07/23 Esha Grimm PA-C [address] [place] [phone] Assigned PCP 07/16/23 Valery Veronica PA-C [address] [place] [address] 893955 Physician Needle Molder Dermatology 09/19/23 Rey Tay MD [address] [place] [address] 724135 Gastroenterology 09/20/23 Rocky Zepeda DO [address] [place] [address] 902035 Physician Gastroenterology 09/20/23 Philip Dumont MD [address] [place] [address] Physician Ophthalmology 09/22/23 Meredith Carrera PA-C [address] [place] [address] 250155 Assigned Gastroenterology Provider 11/01/23 Neil Kent MD [address] 250870 Dermatology 11/02/23 [place] [address] [address] Neurological Surgery 12/26/23 Audrey Waite PA-C 500 [place] [address] Physician Needle Molder Dermatology 02/28/24 Valery Veronica PA-C 861985 [address] [address] Physician Needle Molder Dermatology 04/10/24 Herminia Hatch MD [facility]5 [place] [address] Assigned Rheumatology Provider 07/02/24 [place] [address] [place] [address] [place] [address] Ophthalmology 08/30/24 [place] [address] [place] [address] Assigned Neuroscience Provider 09/30/24 Maru Man PA-C [address] [place] [address] Physician Needle Molder Dermatology 10/03/24 Maru Man PA-C [address] [place] [address] Physician Needle Molder Dermatology 10/22/24 Jelena David OD [address] [facility] [place] [address] Assigned Surgical Provider 10/31/24 Fabiano [place]rea, ADMISSION DISCHARGE RN [address] [place] [address] Assigned Heart and Vascular Provider 11/30/24 Walter Nowak MD [address] [place] [address] Physician Clinical Cardiac Electrophysiology 03/01/25 Liset Márquez MD 606 [address] 039844 rug drying machine operator 03/13/25 Lauren Coronado, [facility] [address] [place] [address] [phone] Pharmacist Pharmacist 04/15/25 documented as of this encounter
--- OUTSIDE RECORDS SUMMARY | 2025-04-27 | XMS_ITS | Encounter Summary ---
Author Organization [facility] Address [address] [place] [address] Care Team Providers Care Cigar Roller Name Role Phone Lita Oseguera Unavailable Unavailable Marija Edgar ALLEY WORKER PRISON PSYCHIATRIST Primary Care Provider + Chanelle Mccann ALLEY WORKER CNM Unavailab le Marija Edgar APRN PRISON PSYCHIATRIST Unavailable [phone] Mynor Broussard MD Unavailable [phone] Keisha Dotson MD Unavailable Galo Burrell MD Unavailable Unavailable Diana Desir [facility] Unavailable Rain Galaviz PA-C Unavailable Summer Lara MD Unavailable [phone] Summer Lara MD Unavailable [phone] Summer Lara MD Unavailable [phone] Tavia Wyatt MD Unavailable Johnny Murillo MD Unavailable Erica Farrell ALLEY WORKER PRISON PSYCHIATRIST Unavailable Teresita Bean [facility] Unavailable [phone] Tavia Wyatt MD Unavailable DesirDiana [facility] Unavailable Rich Barrett MD Unavailable Neil Kent MD Unavailable Roney StoryM Unavailable [phone] Erica Farrell APRN PRISON PSYCHIATRIST Unavailable Diana Desir [facility] Unavailable [phone] Jelena David OD Unavailable Galo Burrell MD Unavailable Unavailable Livan Sharif MD Unavailable Livan Sharif MD Unavailable Catherine Cm MD Unavailable + Valery VeronicaC Unavailable [phone] Catherine Cm MD Unavailable + Johnny Murillo MD Unavailable [phone] Brea Quinn ALLEY WORKER PRISON PSYCHIATRIST Unavailable [phone] Brea Quinn ALLEY WORKER PRISON PSYCHIATRIST Unavailable [phone] Jose Francisco Johnson MD Unavailable Livan Sharif MD Unavailable Catherine Cm MD Unavailable + Sydnie Martinez RN Unavailable Unavailable Alfonso Renteria MD Unavailable Esha GrimmC Primary Care Provider Cheng ToddC Unavailable [phone] Radha Lomeli APRN PRISON PSYCHIATRIST Unavailable [phone] Jelena David OD Unavailable Pao Joseph RN Unavailable Unavailable Al[place], Esha M PA-C Unavailable [phone] Valery Veronica PA-C Unavailable [phone] Rey Tay MD Unavailable ZepedaRocky woodard DO Unavailable Philip Dumont MD Unavailable Meredith Carrera PA-C Unavailable Neil Kent MD Unavailable Juan Pablo Emmanuel MD Unavailable Audrey Waite PA-C Unavailable JeremíasValery damon PA-C Unavailable [phone] Herminia Hatch MD Unavailable Jelena David OD Unavailable Juan Pablo Emmanuel MD Unavailable Maru Man PA-C Unavailable Maru Man PA-C Unavailable Jelena David OD Unavailable Fabiano Correa NP Unavailable Walter Nowak MD Unavailable Liset Márquez MD Unavailable Lauren Coronado [facility] Unavailable Encounter Details Date Type Department Care Team (Late st Contact Info) Description 05/05/2021 [facility] [address] [phone] Lauren Gan, RN Social History [...] do you attend [facility] specialty [facility] or taoism services? More than 4 [...] Answer Date Recorded PHQ-2 Score 0 04/02/2021 [facility] [...] in a fdc (including now)? No 08/11/2020 Lost[place] Depression Scale Answer Date Recorded Lostine Depression Score 5 01/14/2021 Last EPDS Self Harm Result Not on file 01/14 Education Answer Date Recorded What is the highest level of school you have completed or the highest degree you have received? 12th grade 08/07/2020 Comments No Sex and Gender Information Value Date Recorded Sex Assigned at Female 03/02/2021 5:45 PM CDT Legal Sex Female 4:13 AM AMMONIA PRINT OPERATOR Gender Identity Female 03/02/2021 5:45 PM [...] AM CDT [facility] Visit [facility] [address] [place] [address] Liset Márquez MD [address] [place] [address] 05/30/2025 2:45 PM AMMONIA PRINT OPERATOR Office Visit [facility] [address] [phone] Fabiano Correa, BACCARAT MANAGER [address] [place], [place] [address] Walter Nowak MD [address] [place], [place] [phone] 08/07/2025 8:15 AM AMMONIA PRINT OPERATOR Office Visit [facility] [address] [phone] Lucien Grimes MD [address] [phone] 08/21/2025 9:00 AM AMMONIA PRINT OPERATOR Office Visit [facility] [address] [phone] Neil Kent MD [address] [place], [place] [phone] 10/09/2025 10:45 AM CDT Virtual Visit [facility] [address] [place] [phone] Meredith Carrera PA-C [address] [place] [address] documented as of this encounter Visit Diagnoses Not on filedocumented in this encounter Additional Health Concerns Infection Onset Date Last Indicated Resolved Time Rule Out COVID-19 05/11/2021 05/11/2021 05/13/2021 10:18 AM CDT Rule Out COVID-19 07/13/2021 07/13/2021 07/14/2021 3:04 PM AMMONIA PRINT OPERATOR Rule Out COVID-19 07/18/2021 07/18/2021 07/20/2021 1:56 PM AMMONIA PRINT OPERATOR COVID-19 07/18/2021 07/18/2021 08/08/2021 11:3 9 PM AMMONIA PRINT OPERATOR Rule Out COVID-19 12/18/2021 12/18/2021 12/19/2021 11:34 AM CDT Rule Out COVID-19 02/24/2022 02/24/2022 02/25/2022 1:08 PM CDT Rule Out COVID-19 04/26/2022 04/26/2022 04/26/2022 6:47 AM CDT Rule Out COVID-19 05/17/2022 05/17/2022 05/17/2022 10:20 PM AMMONIA PRINT OPERATOR Rule Out COVID-19 06/09/2022 06/09/2022 06/09/2022 9:35 AM AMMONIA PRINT OPERATOR COVID-19 06/09/2022 06/09/2022 06/30/2022 11:4 1 PM AMMONIA PRINT OPERATOR Rule Out COVID-19 11/10/2022 11/10/2022 11/11/2022 [...] as of this encounter Care Teams Cigar Roller Relationship Specialty Start Date End Date Marija Edgar APRN PRISON PSYCHIATRIST PCP - General Nurse Practitioner 04/30/20 04/14/23 Esha Grimm PA-C [address] [place] [phone] PCP - General Family Medicine 05/04/23 Lita Oseguera Personal Advocate & Liaison (PAL) 02/28/20 03/27/23 Chanelle Mccann APRN CNM [address] [address] [facility] [address] [place] [address] Assigned OBGYN Provider 05/02/2005/09 Marija Edgar APRN PRISON PSYCHIATRIST Assigned PCP 06/08/20 04/29/23 Mynor Broussard MD [address] [place], [place] [address] Assigned Surgical Provider 06/01/20 11/28/21 Keisha Dotson MD [address] [place] [address] Assigned Neuroscience Provider 06/04/20 04/01/23 Galo Burrell MD Assigned Heart and Vascular Provider 10/05/20 04/02/22 Diana Desir, [facility] [address] [place] [address] Pharmacist Pharmacist 04/17/21 aRin Galaviz PA-C [address] [place] [address] [place] [address] Physician Shirt Hemmer Dermatology 04/28/21 Summer Lara MD [address] [place] [address] Assigned OBGYN Provider 05/10/2105/23 Summer Lara MD [address] [place] [address]774 Assigned OBGYN Provider 05/31/21 2 Summer Lara MD [address] [place] [address] Assigned OBGYN Provider 05/24/2105/30 Tavia Wyatt MD [address] [place] [address] [phone] Dermatology 07/14/21 Johnny Murillo MD [address] [place] [address] Assigned Musculoskeletal Provider 08/30/21 03/17/22 Erica Farrell APRN PRISON PSYCHIATRIST [address] [facility] [address] [place] [address] Nurse Practitioner Cardiovascular Disease 09/09/21 [facility] [address] [facility] [place] [address] Pharmacist Pharmacist 09/24/21 09/29/21 Tavia Wyatt MD [address] [place] [address] Assigned Surgical Provider 11/29/21 05/07/22 [facility] [address] [place] [address] Assigned MTM Pharmacist 01/02/22 Rich Barrett MD [address] [place] [address] Physician Ophthalmology 01/21/22 Neil Kent MD [address] [place] [address] Dermatology 02/24/22 Roney Story DPM [address] [facility] [address] [place], [place] [address] Assigned Musculoskeletal Provider 03/20/22 08/13/22 Erica Farrell APRN PRISON PSYCHIATRIST [address] [place] [address] Assigned Heart and Vascular Provider 04/03/22 04/16/22 Diana Desir [facility] [address] [place] [address] Assigned [place] Pharmacist 04/07/22 Jelena David OD [address] [facility] [address] Assigned Surgical Provider 05/08/22 10/08/22 Galo Burrell MD Assigned Heart and Vascular Provider 04/17/22 06/11/22 Livan Sharif MD [address] [address] [place] [address] Cardiovascular Disease 05/14/22 Livan Sharif MD [address] [place] [address] Assigned Heart and Vascular Provider 06/12/22 07/23/22 Catherine Cm MD [address] [place] [phone] Cardiovascular Disease 07/21/22 Valery Veronica PA-C [address] [place] [address] Physician Shirt Hemmer Dermatology 07/21/22 Catherine Cm MD [address] [place] [address] Assigned Heart and Vascular Provider 07/24/22 11/05/22 Johnny Murillo MD [address] [facility] [address] [place] [address] Assigned Musculoskeletal Provider 08/14/22 10/08/22 Brea Quinn APRN PRISON PSYCHIATRIST [address] [place], [place] [address] Nurse Practitioner Dermatology 09/21/22 Brea Quinn APRN PRISON PSYCHIATRIST 6401 [facility] [address]622 Assigned Surgical Provider 10/09/22 05/01/24 [place] [address] [address] Assigned Musculoskeletal Provider 10/09/22 05/01/24 Livan Sharif MD [address] [facility] [address] [place] [address] Assigned Heart and Vascular Provider 11/06/22 11/12/22 Catherine Cm MD [address] [facility] [address] [place] [address] Assigned Heart and Vascular Provider 11/13/22 05/27/23 Sydnie Martinez RN Personal Advocate & Liaison (PAL) Family Medicine 03/28/23 07/31/23 Alfonso Renteria MD [address] [facility] 200 [place], [place] [address] Assigned Neuroscience Provider 04/02/23 09/29/24 Cheng Todd PA-C [address] [place] [address] [phone] Assigned PCP 04/30/23 07/15/23 Radha Lomeli APRN PRISON PSYCHIATRIST [address] [facility] [address] [place] [address] Assigned Heart and Vascular Provider 05/28/23 11/29/24 Jelena David OD [address] [facility] [address] [place] [phone] MD Ophthalmology 06/15/23 Pao Joseph, VJ Personal Advocate & Liaison (PAL) Nurse 08/01/23 11/07/23 Esha Grimm PA-C [address] [place] [phone] Assigned PCP 07/16/23 Valery Veronica PA-C [address] [place] [address] Physician Shirt Hemmer Dermatology 09/19/23 Rey Tay MD [address] [place] [address] [phone] Gastroenterology 09/20/23 Rocky Zepeda DO [address] [place] [address] [phone] Physician Gastroenterology 09/20/23 Philip Dumont MD [address] [place] [address] [phone] Physician Ophthalmology 09/22/23 Meredith Carrera PA-C [address] [place] [address] Assigned Gastroenterology Provider 11/01/23 Neil Kent MD [address] [address] Dermatology 11/02/23 [place] [address] [place] [address] Neurological Surgery 12/26/23 Audrey Waite PA-C [address] [place] [address] Physician Shirt Hemmer Dermatology 02/28/24 Valery Veronica PA-C 622851 [address], [place] [address] Physician Shirt Hemmer Dermatology 04/10/24 Herminia Hatch MD [facility]5 [place], [place] [phone] Assigned Rheumatology Provider 07/02/24 Jelena David OD [address] [place] [address] Ophthalmology 08/30/24 [place] [address] [address] [place] [address] Assigned Neuroscience Provider 09/30/24 Maru Man PA-C [address] [place] [address] Physician Shirt Hemmer Dermatology 10/03/24 Maru Man PA-C [address] [place] [address] Physician Shirt Hemmer Dermatology 10/22/24 Jelena David OD [address] [place] [address] Assigned Surgical Provider 10/31/24 Fabiano Correa NP [address] [facility] [place] [address] Assigned Heart and Vascular Provider 11/30/24 Walter Nowak MD [address] [place] [address] Physician Clinical Cardiac Electrophysiology 03/01/25 Liset Márquez MD [address] [address] freezer operator 03/13/25 Lauren Coronado, [facility] [address] [place] [address] Pharmacist Pharmacist 04/15/25 documented as of this encounter
--- OUTSIDE RECORDS SUMMARY | 2025-04-27 | XMS_ITS | Encounter Summary ---
Author Organization [facility] Address [address] [place] [address] Care Team Providers Care Slate Worker Name Role Phone Lita Oseguera Unavailable Unavailable Marija Edgar APRN GOSPEL SINGER Primary Care Provider + Chanelle Mccann APRN CNM Unavailab le Kyara De La Fuente RN Unavailable [phone] Marija Edgar APRN GOSPEL SINGER Unavailable Mynor Broussard MD Unavailable [phone] Keisha Dotson MD Unavailable Galo Burrell MD Unavailable Unavailable Cristina Wood Unavailable Diana Desir [facility] Unavailable Rain Galaviz PA-C Unavailable Summer Lara MD Unavailable [phone] Summer Lara MD Unavailable [phone] Summer Lara MD Unavailable [phone] Tavia Wyatt MD Unavailable Johnny Murillo MD Unavailable Erica Farrell APRN GOSPEL SINGER Unavailable VikasTeresita [facility] Unavailable Tavia Wyatt MD Unavailable ThangDiana [facility] Unavailable Rich Barrett MD Unavailable [phone] Neil Kent MD Unavailable Roney Story DPM Unavailable Erica Farrell APRN GOSPEL SINGER Unavailable Thang Diana [place] [facility] Unavailable Jelena David Unavailable Galo Burrell MD Unavailable Unavailable Livan Sharif MD Unavailable Livan Sharif MD Unavailable Catherine Cm MD Unavailable + Valery Veronica-C Unavailable [phone] Catherine Cm MD Unavailable + Johnny Murillo MD Unavailable [phone] Brea Quinn INSPECTOR WEIGHTS AND MEASURES GOSPEL SINGER Unavailable [phone] Brea Quinn INSPECTOR WEIGHTS AND MEASURES GOSPEL SINGER Unavailable [phone] Jose Francisco Johnson MD Unavailable Livan Sharif MD Unavailable Catherine Cm MD Unavailable + Sydnie Martinez RN Unavailable Unavailable Alfonso Renteria MD Unavailable Esha Grimm PA-C Primary Care Provider Cheng Todd PA-C Unavailable Radha Lomeli INSPECTOR WEIGHTS AND MEASURES GOSPEL SINGER Unavailable Jelena David OD Unavailable [phone] Pao Joseph RN Unavailable Unavailable Esha Grimm Adam PA-C Unavailable [phone] Valery Veronica PA-C Unavailable [phone] Rey Tay MD Unavailable Rocky Zepeda DO [...] Márquez MD Unavailable Lauren Coronado [facility] Unavailable [phone] Encounter Details Date Type Department Care Team (Late st Contact Info) Description 02/06/2021 [facility] [address] [address] [facility] Social History Tobacco Use Types Packs/Day Years [...] Score 3 09/29/2020 [facility] Questionnaire [...] in a usp (including now)? No 08/11/2020 Gordon Depression Scale Answer Date Recorded Gordon Depression Score 5 01/14/2021 Last EPDS Self Harm Result Not on file 01/14 Education Answer Date Recorded What is the highest level of school you have completed or the highest degree you have received? 12th grade 08/07/2020 Comments No Sex and Gender Information Value Date Recorded Sex Assigned at Female 03/02/2021 5:45 PM CDT Legal Sex Female 4:13 AM CAN LINE EXAMINER Gender Identity Female 03/02/2021 5:45 PM [...] Description 04/30/2025 10:30 AM CDT Office Visit [facility] [address], [address] [place] [phone] Liset Márquez MD [address] [place] [address] 05/30/2025 2:45 PM CAN LINE EXAMINER Office Visit [facility] [address] [phone] Fabiano Correa, QUALITY ASSURANCE COORDINATOR 6405 [place], [place] 539775 Walter Nowak MD 2919 [place], [place] 085785 08/07/2025 8:15 AM CAN LINE EXAMINER Office Visit [place] [id number] [phone] Lucien Grimes MD [address] 025[address] 08/21/2025 9:00 AM CAN LINE EXAMINER Office Visit [facility] [address] [phone] Neil Kent MD 500 [place], [place] [phone] 10/09/2025 10:45 AM CDT Virtual Visit [facility] [address] [place] [phone] Meredith Carrera PA-C [address] [place] [address] documented as of this encounter Visit Diagnoses Not on filedocumented in this encounter Additional Health Concerns Infection Onset Date Last Indicated Resolved Time Rule Out COVID-19 05/11/2021 05/11/2021 05/13/2021 10:18 AM CDT Rule Out COVID-19 07/13/2021 07/13/2021 07/14/2021 3:04 PM CAN LINE EXAMINER Rule Out COVID-19 07/18/2021 07/18/2021 07/20/2021 1:56 PM CAN LINE EXAMINER COVID-19 07/18/2021 07/18/2021 08/08/2021 11:3 9 PM CAN LINE EXAMINER Rule Out COVID-19 12/18/2021 12/18/2021 12/19/2021 11:34 AM CDT Rule Out COVID-19 02/24/2022 02/24/2022 02/25/2022 1:08 PM CDT Rule Out COVID-19 04/26/2022 04/26/2022 04/26/2022 6:47 AM CDT Rule Out COVID-19 05/17/2022 05/17/2022 05/17/2022 10:20 PM CAN LINE EXAMINER Rule Out COVID-19 06/09/2022 06/09/2022 06/09/2022 9:35 AM CAN LINE EXAMINER COVID-19 06/09/2022 06/09/2022 06/30/2022 11:4 1 PM CAN LINE EXAMINER Rule Out COVID-19 11/10/2022 11/10/2022 11/11/2022 [...] documented as of this encounter Care Teams Slate Worker Relationship Specialty Start Date End Date Marija Edgar APRN GOSPEL SINGER PCP - General Nurse Practitioner 04/30/20 04/14/23 Esha Grimm PA-C [address] [place] [phone] PCP - General Family Medicine 05/04/23 Lita Oseguera Personal Advocate & Liaison (PAL) 02/28/20 03/27/23 [place] [address] [place] [address] Assigned OBGYN Provider 05/02/2005/09 Kyara De La Fuente, RN Specialty Distance Education Teacher Neurology 06/04/20 03/05/21 Marija Edgar APRN GOSPEL SINGER Assigned PCP 06/08/20 04/29/23 Mynor Broussard MD 909 [place] [address] Assigned Surgical Provider 06/01/20 11/28/21 Keisha Dotson MD 909 [place] [address] Assigned Neuroscience Provider 06/04/20 04/01/23 Galo Burrell MD Assigned Heart and Vascular Provider 10/05/20 04/02/22 Cristina Wood Financial Resource Worker 02/09/21 02/09/21 Diana Desir [facility] [address] [place] [address] Pharmacist Pharmacist 04/17/21 Rain Galaviz PA-C [address] [place] [address] [place] [address] Physician Technologist Infectious Disease Dermatology 04/28/21 Summer Lara MD [address] [place] [address] Assigned OBGYN Provider 05/10/2105/23 Summer Lara MD [address] [place] [address] Assigned OBGYN Provider 05/31/21 Summer Lara MD [address] [place] [address] Assigned OBGYN Provider 05/24/2105/30 Tavia Wyatt MD [address] [place] [address] Dermatology 07/14/21 Johnny Murillo MD [address] [place] [address] Assigned Musculoskeletal Provider 08/30/21 03/17/22 Erica Farrell APRN GOSPEL SINGER [address] [facility] [address] [place] [address] Nurse Practitioner Cardiovascular Disease 09/09/21 Teresita Bean, [facility] [address] [place] [phone] Pharmacist Pharmacist 09/24/21 09/29/21 Tavia Wyatt MD [address] [place] [address] Assigned Surgical Provider 11/29/21 05/07/22 Diana Desir, [facility] 30[address] [place] [address] Assigned MTM Pharmacist 01/02/22 Rich Barrett MD 30[address] [place] [address] Physician Ophthalmology 01/21/22 Neil Kent MD 500 [place] [address] Dermatology 02/24/22 Roney Story DPM [address] [facility] [address] [place], [place] 765337 Assigned Musculoskeletal Provider 03/20/22 08/13/22 Erica Farrell APRN GOSPEL SINGER 1700 [place] [address] Assigned Heart and Vascular Provider 04/03/22 04/16/22 Diana Desir, [facility] [address] [place], [place] 509986 Assigned MTM Pharmacist 04/07/22 [place] [address] [facility] [place] [address] Assigned Surgical Provider 05/08/22 10/08/22 Galo Burrell MD Assigned Heart and Vascular Provider 04/17/22 06/11/22 Livan Sharif MD [address] [place] [address] Cardiovascular Disease 05/14/22 Livan Sharif MD [address] [place] [address] Assigned Heart and Vascular Provider 06/12/22 07/23/22 Catherine Cm MD [address] [place], [place] [address] Cardiovascular Disease 07/21/22 Valery Veronica, PAUcheC [address] [place] [address] Physician Technologist Infectious Disease Dermatology 07/21/22 Catherine Cm MD [address] [facility] [address] [place] [address] [place] [address] Assigned Heart and Vascular Provider 07/24/22 11/05/22 Johnny Murillo MD [address] [place] [address] Assigned Musculoskeletal Provider 08/14/22 10/08/22 Brea Quinn APRN GOSPEL SINGER [address] [place] [address] 777065 Nurse Practitioner Dermatology 09/21/22 Brea Quinn APRN GOSPEL SINGER [address] [place] [address] Assigned Surgical Provider 10/09/22 05/01/24 [place] [address] RAZO [address] [place] [address] Assigned Musculoskeletal Provider 10/09/22 05/01/24 Livan Sharif MD [address] [place] [address] Assigned Heart and Vascular Provider 11/06/22 11/12/22 Catherine Cm MD [address] [place] [address] Assigned Heart and Vascular Provider 11/13/22 05/27/23 Sydnie Martinez RN Personal Advocate & Liaison (PAL) Family Medicine 03/28/23 07/31/23 Alfonso Renteria MD [address] [facility] [address] [place] [address] Assigned Neuroscience Provider 04/02/23 09/29/24 Cheng Todd PA-C [address] [place] [address] Assigned PCP 04/30/23 07/15/23 Radha Lomeli APRN GOSPEL SINGER [address] [facility] [address] [place] [address] Assigned Heart and Vascular Provider 05/28/23 11/29/24 Jelena David OD [address] [facility] [place] [address] Ophthalmology 06/15/23 Pao Joseph, VJ Personal Advocate & Liaison (PAL) Nurse 08/01/23 11/07/23 Esha Grimm PA-C [address] [place] [phone] Assigned PCP 07/16/23 Valery Veronica PA-C [address] [place] [address] 996505 Physician Technologist Infectious Disease Dermatology 09/19/23 Rey Tay MD 9 [place] [address] Gastroenterology 09/20/23 Rocky Zepeda DO [address] [place] [address] Physician Gastroenterology 09/20/23 Philip Dumont MD 6 [place] [address] Physician Ophthalmology 09/22/23 Meredith Carrera PA-C [address] [place] [address] Assigned Gastroenterology Provider 11/01/23 Neil Kent MD [address] [address] MD Dermatology 11/02/23 [place] [address] [place] [address] [facility] [place] [address] Neurological Surgery 12/26/23 Audrey Waite PA-C 500 [place] [address] Physician Technologist Infectious Disease Dermatology 02/28/24 Valery Veronica PA-C 091492 [address] [address] Physician Technologist Infectious Disease Dermatology 04/10/24 Herminia Hatch MD [address] [place] [address] [id number] Assigned Rheumatology Provider 07/02/24 [place] [address] [place] [address] [place] [address] Ophthalmology 08/30/24 [place] [address] [place] [facility] 300 [place] [address] Assigned Neuroscience Provider 09/30/24 Maru Man PA-C [address] [place] [address] Physician Technologist Infectious Disease Dermatology 10/03/24 Maru Man PA-C [address] [place] [address] 567800 Physician Technologist Infectious Disease Dermatology 10/22/24 Jelena David OD [address] [facility] [place] [address] Assigned Surgical Provider 10/31/24 Fabiano Correa NP [address] [place] 827285 Assigned Heart and Vascular Provider 11/30/24 Walter Nowak MD [address] [place] [address] Physician Clinical Cardiac Electrophysiology 03/01/25 Liset Márquez MD [address] [facility] 300 [place] [address] high school history teacher 03/13/25 Lauren Coronado, [facility] 909 [place], [place] 904675 Pharmacist Pharmacist 04/15/25 documented as of this encounter
--- OUTSIDE RECORDS SUMMARY | 2025-04-27 | XMS_ITS | Encounter Summary ---
Author Organization [facility] Address [address] [place] [address] Care Team Providers Care Tree Chipper Name Role Phone Lita Oseguera Unavailable Unavailable Marija Edgar PRODUCTION SHIFT SUPERVISOR MANAGER SPECIAL EVENTS Primary Care Provider + Chanelle Mccann PRODUCTION SHIFT SUPERVISOR CNM Unavailab le Marija Edgar APRN MANAGER SPECIAL EVENTS Unavailable Mynor Broussard MD Unavailable [phone] Keisha Dotson MD Unavailable [phone] Galo Burrell MD Unavailable Unavailable Diana Desir [facility] Unavailable Rain Galaviz PA-C Unavailable [phone] Summer Lara MD Unavailable [phone] Summer Lara MD Unavailable [phone] Summer Lara MD Unavailable [phone] Tavia Wyatt MD Unavailable Johnny Murillo MD Unavailable Erica Farrell PRODUCTION SHIFT SUPERVISOR MANAGER SPECIAL EVENTS Unavailable Teresita Bean [facility] Unavailable Tavia Wyatt MD Unavailable DesirDiana [facility] Unavailable Rich Barrett MD Unavailable Neil Kent MD Unavailable Roney StoryM Unavailable [phone] Erica Farrell APRN MANAGER SPECIAL EVENTS Unavailable Diana Desir [facility] Unavailable [phone] Jelena David OD Unavailable Galo Burrell MD Unavailable Unavailable Livan Sharif MD Unavailable Livan Sharif MD Unavailable Catherine Cm MD Unavailable + Valery VeronicaC Unavailable [phone] Catherine Cm MD Unavailable + Johnny Murillo MD Unavailable [phone] Brea Quinn PRODUCTION SHIFT SUPERVISOR MANAGER SPECIAL EVENTS Unavailable [phone] Brea Quinn PRODUCTION SHIFT SUPERVISOR MANAGER SPECIAL EVENTS Unavailable [phone] Jose Francisco Johnson MD Unavailable Livan Sharif MD Unavailable Catherine Cm MD Unavailable + Sydnie Martinez RN Unavailable Unavailable Alfonso Renteria MD Unavailable Esha GrimmC Primary Care Provider Cheng ToddC Unavailable [phone] Radha Lomeli APRN MANAGER SPECIAL EVENTS Unavailable [phone] Jelena David OD Unavailable Pao Joseph RN Unavailable Unavailable Alfa, Esha M PA-C Unavailable [phone] Valery Veronica PA-C Unavailable Rey Tay [...] Unavailable Liset Márquez MD Unavailable Lauren Coronado [facility] Unavailable Encounter Details Date Type Department Care Team (Late st Contact Info) Description 04/28/2021 [facility] [address] [address] Marija Edgar APRN MANAGER SPECIAL EVENTS [address] [place] [address] Social History Tobacco Use Types Packs/Day [...] do you attend chur or confucianist services? More than 4 times [...] in a penitentiary (including now)? No 08/11/2020 [place] Depression Scale Answer Date Recorded [place] [...] CDT Legal Sex Female 4:13 AM SYSTEMS LIBRARIAN Gender Identity Female 03/02/2021 5:45 PM [...] Description 04/30/2025 10:30 AM CDT Office [facility] [address], [address] [place] [phone] Liset Márquez MD [address] [facility] 300 [place], [place] 22[address]94 05/30/2025 2:45 PM SYSTEMS LIBRARIAN Office Visit [facility] [address] [phone] Fabiano Correa, E BUSINESS MANAGER 6405 [place], [place] 071455 Walter Nowak MD [address]70 [place], [place] 9[address] 08/07/2025 8:15 AM SYSTEMS LIBRARIAN Office Visit [facility] [address] [phone] Lucien Grimes MD [address] 196[address] 08/21/2025 9:00 AM SYSTEMS LIBRARIAN Office Visit [facility] [address] [phone] Neil Kent MD 500 [place] [address] 10/09/2025 10:45 AM CDT Virtual Visit [facility] [address] [place] [phone] Meredith Carrera PA-C [address] [place] [address] documented as of this encounter Visit Diagnoses Not on filedocumented in this encounter Additional Health Concerns Infection Onset Date Last Indicated Resolved Time Rule Out COVID-19 05/11/2021 05/11/2021 05/13/2021 10:18 AM CDT Rule Out COVID-19 07/13/2021 07/13/2021 07/14/2021 3:04 PM SYSTEMS LIBRARIAN Rule Out COVID-19 07/18/2021 07/18/2021 07/20/2021 1:56 PM SYSTEMS LIBRARIAN COVID-19 07/18/2021 07/18/2021 08/08/2021 11:3 9 PM SYSTEMS LIBRARIAN Rule Out COVID-19 12/18/2021 12/18/2021 12/19/2021 11:34 AM CDT Rule Out COVID-19 02/24/2022 02/24/2022 02/25/2022 1:08 PM CDT Rule Out COVID-19 04/26/2022 04/26/2022 04/26/2022 6:47 AM CDT Rule Out COVID-19 05/17/2022 05/17/2022 05/17/2022 10:20 PM SYSTEMS LIBRARIAN Rule Out COVID-19 06/09/2022 06/09/2022 06/09/2022 9:35 AM SYSTEMS LIBRARIAN COVID-19 06/09/2022 06/09/2022 06/30/2022 11:4 1 PM SYSTEMS LIBRARIAN Rule Out COVID-19 11/10/2022 11/10/2022 11/11/2022 [...] as of this encounter Care Teams Tree Chipper Relationship Specialty Start Date End Date Marija Edgar APRN MANAGER SPECIAL EVENTS PCP - General Nurse Practitioner 04/30/20 04/14/23 Esha Grimm PA-C [address] [place] [phone] PCP - General Family Medicine 05/04/23 Lita Oseguera Personal Advocate & Liaison (PAL) 02/28/20 03/27/23 Chanelle Mccann APRN CNM [address] 630557 Assigned OBGYN Provider 05/02/2005/09 Marija Edgar APRN MANAGER SPECIAL EVENTS Assigned PCP 06/08/20 04/29/23 Mynor Broussard MD 9 [place] [address] Assigned Surgical Provider 06/01/20 11/28/21 Keisha Dotson MD 909 [place] [address] Assigned Neuroscience Provider 06/04/20 04/01/23 Galo Burrell MD Assigned Heart and Vascular Provider 10/05/20 04/02/22 [facility] [address] [place] [address] Pharmacist Pharmacist 04/17/21 Rain Galaviz PA-C [address] [facility] [place] [address] Physician Cross Cut Sawyer Dermatology 04/28/21 Summer Lara MD [address] [place] [address] 605094 Assigned OBGYN Provider 05/10/2105/23 Summer Lara MD [address] [place] [address] 884664 Assigned OBGYN Provider 05/31/21 2 Summer Lara MD [address] [place] [address] 691014 Assigned OBGYN Provider 05/24/2105/30 Tavia Wyatt MD [address] [place] [address] 015834 Dermatology 07/14/21 Johnny Murillo MD [address] [place] [address] Assigned Musculoskeletal Provider 08/30/21 03/17/22 Erica Farrell APRN MANAGER SPECIAL EVENTS [address] [facility] [address] [place], [place] 7[address] Nurse Practitioner Cardiovascular Disease 09/09/21 Teresita Bean, [facility] [address] [place] [phone] Pharmacist Pharmacist 09/24/21 09/29/21 Tavia Wyatt MD [address] [place] [address] Assigned Surgical Provider 11/29/21 05/07/22 [facility] 3033 [place] [address] Assigned MTM Pharmacist 01/02/22 Rich Barrett MD 3033 [place] [address] Physician Ophthalmology 01/21/22 Neil Kent MD 500 [place], [place] 890355 Dermatology 02/24/22 Roney Story DPM [address] [facility] [address] [place], [place] 480697 Assigned Musculoskeletal Provider 03/20/22 08/13/22 Erica Farrell APRN MANAGER SPECIAL EVENTS 1700 [place] [address] Assigned Heart and Vascular Provider 04/03/22 04/16/22 Diana Desir, [facility] [address] [facility] [address] Assigned MTM Pharmacist 04/07/22 J[place] David [place] [address] [place] [address] Assigned Surgical Provider 05/08/22 10/08/22 Galo Burrell MD Assigned Heart and Vascular Provider 04/17/22 06/11/22 Livan Sharif MD [address] [place] [address] Cardiovascular Disease 05/14/22 Livan Sharif MD [address] [place] [address] Assigned Heart and Vascular Provider 06/12/22 07/23/22 Catherine Cm MD [address] [place] [address] Cardiovascular Disease 07/21/22 Valery Veronica PAUcheC 909 [place] [address] Physician Cross Cut Sawyer Dermatology 07/21/22 Catherine Cm MD [address] [place] [address] Assigned Heart and Vascular Provider 07/24/22 11/05/22 Johnny Murillo MD [address] [place] [address] Assigned Musculoskeletal Provider 08/14/22 10/08/22 Brea Quinn APRN MANAGER SPECIAL EVENTS 500 [place] [address] Nurse Practitioner Dermatology 09/21/22 Brea Quinn APRN MANAGER SPECIAL EVENTS 64[address] [facility] [place] [address] Assigned Surgical Provider 10/09/22 05/01/24 [place] [address] [facility] 300 [place] [address] Assigned Musculoskeletal Provider 10/09/22 05/01/24 Livan Sharif MD [address] [facility] [address] [place] [address] Assigned Heart and Vascular Provider 11/06/22 11/12/22 Catherine Cm MD [address] [facility] [address] [place] 555395 Assigned Heart and Vascular Provider 11/13/22 05/27/23 Sydnie Martinez RN Personal Advocate & Liaison (PAL) Family Medicine 03/28/23 07/31/23 Alfonso Renteria MD [address] [facility] [address] [place] [address] Assigned Neuroscience Provider 04/02/23 09/29/24 Cheng Todd PA-C [address] [place] [address] Assigned PCP 04/30/23 07/15/23 Radha Lomeli APRN MANAGER SPECIAL EVENTS [address] [facility] [address] [place] [address] Assigned Heart and Vascular Provider 05/28/23 11/29/24 [place] David OD [address] [place] [address] Ophthalmology 06/15/23 Pao Joseph, VJ Personal Advocate & Liaison (PAL) Nurse 08/01/23 11/07/23 Esha Grimm PA-C [address] [place] [phone] Assigned PCP 07/16/23 Valery Veronica PA-C [address] [place] [address] Physician Cross Cut Sawyer Dermatology 09/19/23 Rey Tay MD [address] [place] [address] 592545 Gastroenterology 09/20/23 Rocky Zepeda DO [address] [place] [address] Physician Gastroenterology 09/20/23 Philip Dumont MD 516 [place] [address] Physician Ophthalmology 09/22/23 Meredith Carrera PA-C [address] [place] [address] Assigned Gastroenterology Provider 11/01/23 Neil Kent MD [address] [address] Dermatology 11/02/23 [place] [address] [place], [place] [address] Neurological Surgery 12/26/23 Audrey Waite PA-C [address] [place] [address] Physician Cross Cut Sawyer Dermatology 02/28/24 Valery Veronica PA-C [address]70 [address] [place] [address] Physician Cross Cut Sawyer Dermatology 04/10/24 Herminia Hatch MD [address] [place] [address] [phone] Assigned Rheumatology Provider 07/02/24 [place] [address] [place] [address] [place] [address] Ophthalmology 08/30/24 [place] [address] [place] [address] Assigned Neuroscience Provider 09/30/24 Maru Man PA-C [address] [place] [address] Physician Cross Cut Sawyer Dermatology 10/03/24 Maru Man PA-C [address] [place] [address] Physician Cross Cut Sawyer Dermatology 10/22/24 [place] [address] [place] [address] Assigned Surgical Provider 10/31/24 Fabiano Correa NP [address] [facility] [place] [address] Assigned Heart and Vascular Provider 11/30/24 Walter Nowak MD [address] [place] 490675 Physician Clinical Cardiac Electrophysiology 03/01/25 Liset Márquez MD [address] [address] metal riveting machine operator 03/13/25 Lauren Coronado, [facility] 909 [place], [place] 077[address] Pharmacist Pharmacist 04/15/25 documented as of this encounter
--- OUTSIDE RECORDS SUMMARY | 2025-04-27 | XMS_ITS | Encounter Summary ---
Author Organization [facility] Address [address] [place] [address] Care Team Providers Care Machinery Rigger Name Role Phone Lita Oseguera Unavailable Unavailable Marija Edgar INSOLE RASPER PUNCHER AND FASTENER Primary Care Provider + Chanelle Mccann INSOLE RASPER CNM Unavailab le Marija Edgar APRN PUNCHER AND FASTENER Unavailable Mynor Broussard MD Unavailable [phone] Keisha Dotson MD Unavailable Galo Burrell MD Unavailable Unavailable Diana Desir [facility] Unavailable Rain Galaviz PA-C Unavailable Summer Lara MD Unavailable [phone] Summer Lara MD Unavailable [phone] Summer Lara MD Unavailable [phone] Tavia Wyatt MD Unavailable Johnny Murillo MD Unavailable Erica Farrell INSOLE RASPER PUNCHER AND FASTENER Unavailable Teresita Bean [facility] Unavailable Tavia Wyatt MD Unavailable DesirDiana [facility] Unavailable Rich Barrett MD Unavailable Neil Kent MD Unavailable Roney StoryM Unavailable [phone] Erica Farrell APRN PUNCHER AND FASTENER Unavailable Diana Desir [facility] Unavailable [phone] Jelena David OD Unavailable Galo Burrell MD Unavailable Unavailable Livan Sharif MD Unavailable Livan Sharif MD Unavailable Catherine Cm MD Unavailable + Valery VeronicaC Unavailable [phone] Catherine Cm MD Unavailable + Johnny Murillo MD Unavailable [phone] Brea Quinn INSOLE RASPER PUNCHER AND FASTENER Unavailable [phone] Brea Quinn INSOLE RASPER PUNCHER AND FASTENER Unavailable [phone] Jose Francisco Johnson MD Unavailable Livan Sharif MD Unavailable Catherine Cm MD Unavailable + Sydnie Martinez RN Unavailable Unavailable Alfonso Renteria MD Unavailable Esha GrimmC Primary Care Provider Cheng ToddC Unavailable [phone] Radha Lomeli APRN PUNCHER AND FASTENER Unavailable [phone] Jelena David OD Unavailable Pao Joseph RN Unavailable Unavailable Alfa, Esha M PA-C Unavailable [phone] Valery Veronica PA-C Unavailable Rey Tay MD Unavailable ZepedaRocky woodard DO Unavailable Philip Dumont MD Unavailable Meredith Carrera PA-C Unavailable [phone] Neil Kent MD Unavailable Juan Pablo Emmanuel [...] Team (Late st Contact Info) Description 04/17/2021 [facility] [address] [address] Diana Desir, [facility] [address] [place] [address] Social History Tobacco Use Types [...] do you attend chur or orthodox services? More than 4 times [...] Score 0 04/02/2021 [facility] - Occupational Stress Questionnaire Answer [...] in a penitentiary (including now)? No 08/11/2020 [place] Depression Scale Answer Date Recorded [place] Depression Score 5 01/14/2021 Last EPDS Self Harm Result Not on file 01/14 Education Answer Date Recorded What is the highest level of school you have completed or the highest degree you have received? 12th grade 08/07/2020 Comments No Sex and Gender Information Value Date Recorded Sex Assigned at Female 03/02/2021 5:45 PM CDT Legal Sex Female 4:13 AM FINANCIAL DEALERS Gender Identity Female 03/02/2021 5:45 PM CDT [...] Office Visit [facility] [address], [address] [place] [employer] [place] [phone] Liset Márquez MD [address] [place] [address] 05/30/2025 2:45 PM FINANCIAL DEALERS Office Visit [place] [id number] [phone] Fabiano Correa, BIOMETRICIAN 6405 [place], [place] 810075 Walter Nowak MD 6403 [place], [place] 313845 08/07/2025 8:15 AM FINANCIAL DEALERS Office Visit [place] [phone] [address] [phone] Lucien Grimes MD [address] 269[address] 08/21/2025 9:00 AM FINANCIAL DEALERS Office Visit [facility] [address] [phone] Neil Kent MD 500 [place], [place] [phone] 10/09/2025 10:45 AM CDT Virtual Visit [facility] G[facility]ology [facility] [address] [place] [address] Meredith Carrera PA-C [address] [place] [address] documented as of this encounter Visit Diagnoses Not on filedocumented in this encounter Additional Health Concerns Infection Onset Date Last Indicated Resolved Time Rule Out COVID-19 05/11/2021 05/11/2021 05/13/2021 10:18 AM CDT Rule Out COVID-19 07/13/2021 07/13/2021 07/14/2021 3:04 PM FINANCIAL DEALERS Rule Out COVID-19 07/18/2021 07/18/2021 07/20/2021 1:56 PM FINANCIAL DEALERS COVID-19 07/18/2021 07/18/2021 08/08/2021 11:3 9 PM FINANCIAL DEALERS Rule Out COVID-19 12/18/2021 12/18/2021 12/19/2021 11:34 AM CDT Rule Out COVID-19 02/24/2022 02/24/2022 02/25/2022 1:08 PM CDT Rule Out COVID-19 04/26/2022 04/26/2022 04/26/2022 6:47 AM CDT Rule Out COVID-19 05/17/2022 05/17/2022 05/17/2022 10:20 PM FINANCIAL DEALERS Rule Out COVID-19 06/09/2022 06/09/2022 06/09/2022 9:35 AM FINANCIAL DEALERS COVID-19 06/09/2022 06/09/2022 06/30/2022 11:4 1 PM FINANCIAL DEALERS Rule Out COVID-19 11/10/2022 11/10/2022 11/11/2022 12:17 [...] documented as of this encounter Care Teams Machinery Rigger Relationship Specialty Start Date End Date Marija Edgar APRN PUNCHER AND FASTENER PCP - General Nurse Practitioner 04/30/20 04/14/23 Esha Grimm PA-C [address] [place] [address] PCP - General Family Medicine 05/04/23 Lita Oseguera Personal Advocate & Liaison (PAL) 02/28/20 03/27/23 [place] [address] [place] [address] [phone] Assigned OBGYN Provider 05/02/2005/09 Marija Edgar APRN PUNCHER AND FASTENER Assigned PCP 06/08/20 04/29/23 Mynor Broussard MD 909 [place] [address] Assigned Surgical Provider 06/01/20 11/28/21 Keisha Dotson MD 909 [place] [address] Assigned Neuroscience Provider 06/04/20 04/01/23 Galo Burrell MD Assigned Heart and Vascular Provider 10/05/20 04/02/22 [facility] [address] [place] [address] Pharmacist Pharmacist 04/17/21 Rain Galaviz PA-C [address] [place] [address] [place] [address] Physician Vp Client Services Dermatology 04/28/21 Summer Lara MD [address] [place] [address] 680854 Assigned OBGYN Provider 05/10/2105/23 Summer Lara MD [address] [place] [address] 436594 Assigned OBGYN Provider 05/31/21 2 Summer Lara MD [address] [place] [address] 321204 Assigned OBGYN Provider 05/24/2105/30 Tavia Wyatt MD [address] [place] [address] 954314 Dermatology 07/14/21 Johnny Murillo MD [address] [place] [address] Assigned Musculoskeletal Provider 08/30/21 03/17/22 Erica Farrell APRN PUNCHER AND FASTENER [address] [facility] [address] [place] [address] Nurse Practitioner Cardiovascular Disease 09/09/21 Teresita Bean, [facility] [address] [place] [phone] Pharmacist Pharmacist 09/24/21 09/29/21 Tavia Wyatt MD [address] [place], [place] 338660 Assigned Surgical Provider 11/29/21 05/07/22 [facility] 3033 [place] [address] Assigned MTM Pharmacist 01/02/22 Rich Barrett MD 3033 [place] [address] Physician Ophthalmology 01/21/22 Neil Kent MD 500 [place], [place] 051575 Dermatology 02/24/22 Roney Story DPM [address] [facility] [address] [place] [address] Assigned Musculoskeletal Provider 03/20/22 08/13/22 Erica Farrell APRN PUNCHER AND FASTENER 1700 [place] [address] Assigned Heart and Vascular Provider 04/03/22 04/16/22 Diana Desir, [facility] [address] [place] [address] Assigned MTM Pharmacist 04/07/22 Jelena David OD [address] [facility] [place] [address] Assigned Surgical Provider 05/08/22 10/08/22 Galo Burrell MD Assigned Heart and Vascular Provider 04/17/22 06/11/22 Livan Sharif MD [address] [place] [address] Cardiovascular Disease 05/14/22 Livan Sharif MD [address] [place] [address] [place] [address] Assigned Heart and Vascular Provider 06/12/22 07/23/22 Catherine Cm MD [address] [address] [place] [address] Cardiovascular Disease 07/21/22 Valery Veronica, PA-C 909 [place] [address] Physician Vp Client Services Dermatology 07/21/22 Catherine Cm MD [address] [address] [place] [address] Assigned Heart and Vascular Provider 07/24/22 11/05/22 Johnny Murillo MD [address] [address] Assigned Musculoskeletal Provider 08/14/22 10/08/22 Brea Quinn APRN PUNCHER AND FASTENER 500 [place] [address] Nurse Practitioner Dermatology 09/21/22 Brea Quinn APRN PUNCHER AND FASTENER [address] [place] [address] [place] [address] Assigned Surgical Provider 10/09/22 05/01/24 [place] [address] 184637 Assigned Musculoskeletal Provider 10/09/22 05/01/24 Livan Sharif MD 6405 [facility] [address] [place] [address] Assigned Heart and Vascular Provider 11/06/22 11/12/22 Catherine Cm MD 6405 [facility] [address] [place] 136975 Assigned Heart and Vascular Provider 11/13/22 05/27/23 Sydnie Martinez RN Personal Advocate & Liaison (PAL) Family Medicine 03/28/23 07/31/23 Alfonso Renteria MD 5775 [facility] 200 [place] [address] Assigned Neuroscience Provider 04/02/23 09/29/24 Cheng Todd PA-C [address] [place] [address] Assigned PCP 04/30/23 07/15/23 Radha Lomeli APRN PUNCHER AND FASTENER [address] [facility] [address] [place] [address] Assigned Heart and Vascular Provider 05/28/23 11/29/24 Jelena David OD [address] [facility] [place] [address] Ophthalmology 06/15/23 Pao Joseph, VJ Personal Advocate & Liaison (PAL) Nurse 08/01/23 11/07/23 Esha Grimm PA-C [address] [place] [phone] Assigned PCP 07/16/23 Valery Veronica PA-C [address] [place] [address] Physician Vp Client Services Dermatology 09/19/23 Rey Tay MD [address] [place] [address] Gastroenterology 09/20/23 Rocky Zepeda DO [address] [place] [address] Physician Gastroenterology 09/20/23 Philip Dumont MD 516 [place] [address] Physician Ophthalmology 09/22/23 Meredith Carrera PA-C [address] [place] [address] Assigned Gastroenterology Provider 11/01/23 Neil Kent MD [address] [address] Dermatology 11/02/23 [place] [address] RAZO [address] [place] [address] 733297 Neurological Surgery 12/26/23 Audrey Waite PA-C [address] [place] [address] Physician Vp Client Services Dermatology 02/28/24 Valery Veronica PA-C 532294 [address] [place] [address] Physician Vp Client Services Dermatology 04/10/24 Herminia Hatch MD [address] [place] [address] [phone] Assigned Rheumatology Provider 07/02/24 Jelena Dvaid OD [address] [place] [address] [place] [address] Ophthalmology 08/30/24 [place] [address] [place] 403847 Assigned Neuroscience Provider 09/30/24 Maru Man PA-C [address] [place] [address] Physician Vp Client Services Dermatology 10/03/24 Maru Man PA-C [address] [place] [address] Physician Vp Client Services Dermatology 10/22/24 Jelena David OD [address] [facility] [place] [address] Assigned Surgical Provider 10/31/24 Fabiano Correa NP 6405 [facility] [place] 432[address] Assigned Heart and Vascular Provider 11/30/24 Walter Nowak MD [address] [place] 030845 Physician Clinical Cardiac Electrophysiology 03/01/25 Liset Márquez MD [address] [address] speech and language clinician 03/13/25 Lauren Coronado, [facility] 909 [place], [place] 642225 Pharmacist Pharmacist 04/15/25 documented as of this encounter
--- OUTSIDE RECORDS SUMMARY | 2025-04-27 | XMS_ITS | Encounter Summary ---
Author Organization [facility] Address [address] [place] [address] Care Team Providers Care Stock Blender Name Role Phone Lita Oseguera Unavailable Unavailable Marija Edgar MOTOR BRAKEMAN BLUING OVEN TENDER Primary Care Provider + Chanelle Mccann MOTOR BRAKEMAN CNM Unavailab le Marija Edgar APRN BLUING OVEN TENDER Unavailable [phone] Mynor Broussard MD Unavailable [phone] Keisha Dotson MD Unavailable [phone] Galo Burrell MD Unavailable Unavailable Diana Desir [facility] Unavailable Rain Galaviz PA-C Unavailable Summer Lara MD Unavailable [phone] Summer Lara MD Unavailable [phone] Summer Lara MD Unavailable [phone] Tavia Wyatt MD Unavailable Johnny Murillo MD Unavailable [phone] Erica Farrell MOTOR BRAKEMAN BLUING OVEN TENDER Unavailable Teresita Bean [facility] Unavailable Tavia Wyatt MD Unavailable DesirDiana [facility] Unavailable Rich Barrett MD Unavailable Neil Kent MD Unavailable Roney StoryM Unavailable [phone] Erica Farrell APRN BLUING OVEN TENDER Unavailable Diana Desir [facility] Unavailable [phone] Jelena David OD Unavailable Galo Burrell MD Unavailable Unavailable Livan Sharif MD Unavailable Livan Sharif MD Unavailable Catherine Cm MD Unavailable + Valery VeronicaC Unavailable [phone] Catherine Cm MD Unavailable + Johnny Murillo MD Unavailable [phone] Brea Quinn MOTOR BRAKEMAN BLUING OVEN TENDER Unavailable [phone] Brea Quinn MOTOR BRAKEMAN BLUING OVEN TENDER Unavailable [phone] Jose Francisco Johnson MD Unavailable Livan Sharif MD Unavailable Catherine Cm MD Unavailable + Sydnie Martinez RN Unavailable Unavailable Alfonso Renteria MD Unavailable Esha GrimmC Primary Care Provider Cheng ToddC Unavailable [phone] Radha Lomeli APRN BLUING OVEN TENDER Unavailable [phone] Jelena David OD Unavailable [phone] Pao Joseph RN Unavailable Unavailable Alfa, Esha M PA-C Unavailable [phone] Valery Veronica PA-C Unavailable Rey Tay MD Unavailable ZepedaRocky woodard DO Unavailable Philip Dumont MD Unavailable [phone] Meredith Carrera PA-C Unavailable Neil Kent MD Unavailable Juan Pablo Emmanuel MD Unavailable Audrey Waite PA-C Unavailable JeremíasValery damon PA-C Unavailable [phone] Herminia Hatch MD Unavailable Jelena David OD Unavailable Juan Pablo Emmanuel MD Unavailable Maru Man PA-C Unavailable Maru Man PA-C Unavailable Jelena David OD Unavailable Fabiano Correa NP Unavailable Walter Nowak MD Unavailable Liset Márquez MD Unavailable Lauren Coronado [facility] Unavailable [phone] Encounter Details Date Type Department Care Team (Late st Contact Info) Description 04/28/2021 MyC Medical Advice [address] [address] Lauren Gan, RN Social History [...] How often do you attend [facility] or alevism services? More than 4 times [...] a group home (including now)? No 08/11/2020 [place] Depression Scale Answer Date Recorded [place] Depression Score 5 01/14/2021 Last EPDS Self Harm Result Not on file 01/14 Education Answer Date Recorded What is the highest level of school you have completed or the highest degree you have received? 12th grade 08/07/2020 Comments No Sex and Gender Information Value Date Recorded Sex Assigned at Female 03/02/2021 5:45 PM CDT Legal Sex Female 4:13 AM CHIMNEY BUILDER Gender Identity Female 03/02/2021 5:45 PM [...] Office Visit [facility] [address], [address] [employer] [place] [phone] Liset Márquez MD [address] [place], [place] 5[address]24 05/30/2025 2:45 PM CHIMNEY BUILDER Office Visit [facility] 6405 [facility] [address] [place] [phone] Fabiano Correa, PEGGER DOBBY [employer]OMS 6405 [place], [place] [address] Walter Nowak MD 4095 [place], [place] [address] 08/07/2025 8:15 AM CHIMNEY BUILDER Office Visit [facility] [address] [phone] Lucien Grimes MD [address] 213585 08/21/2025 9:00 AM CHIMNEY BUILDER Office Visit [facility] [address] [phone] Neil Kent MD 500 [place], [place] 768135 10/09/2025 10:45 AM CDT Virtual Visit [facility] Gastroenterology Clinic [address]th [place] [address] Meredith Carrera PA-C [address] [place] [address] documented as of this encounter Visit Diagnoses Not on filedocumented in this encounter Additional Health Concerns Infection Onset Date Last Indicated Resolved Time Rule Out COVID-19 05/11/2021 05/11/2021 05/13/2021 10:18 AM CDT Rule Out COVID-19 07/13/2021 07/13/2021 07/14/2021 3:04 PM CHIMNEY BUILDER Rule Out COVID-19 07/18/2021 07/18/2021 07/20/2021 1:56 PM CHIMNEY BUILDER COVID-19 07/18/2021 07/18/2021 08/08/2021 11:3 9 PM CHIMNEY BUILDER Rule Out COVID-19 12/18/2021 12/18/2021 12/19/2021 11:34 AM CDT Rule Out COVID-19 02/24/2022 02/24/2022 02/25/2022 1:08 PM CDT Rule Out COVID-19 04/26/2022 04/26/2022 04/26/2022 6:47 AM CDT Rule Out COVID-19 05/17/2022 05/17/2022 05/17/2022 10:20 PM CHIMNEY BUILDER Rule Out COVID-19 06/09/2022 06/09/2022 06/09/2022 9:35 AM CHIMNEY BUILDER COVID-19 06/09/2022 06/09/2022 06/30/2022 11:4 1 PM CHIMNEY BUILDER Rule Out COVID-19 11/10/2022 11/10/2022 11/11/2022 [...] as of this encounter Care Teams Stock Blender Relationship Specialty Start Date End Date Marija Edgar APRN BLUING OVEN TENDER PCP - General Nurse Practitioner 04/30/20 04/14/23 Esha Grimm PAUcheC [address] [place] [phone] PCP - General Family Medicine 05/04/23 Lita Oseguera Personal Advocate & Liaison (PAL) 02/28/20 03/27/23 Chanelle Mccann APRN CNAdam [address] [facility] 200 [place] [address] Assigned OBGYN Provider 05/02/2005/09 Marija Edgar APRN BLUING OVEN TENDER Assigned PCP 06/08/20 04/29/23 Mynor Broussard MD 909 [place], [place] 241215 Assigned Surgical Provider 06/01/20 11/28/21 Keisha Dotson MD 909 [place] [address] Assigned Neuroscience Provider 06/04/20 04/01/23 Galo Burrell MD Assigned Heart and Vascular Provider 10/05/20 04/02/22 Diana Desir, [facility] [address] [place] [address] Pharmacist Pharmacist 04/17/21 Rain Galaviz PA-C [address] [place] [address] [place] [address] Physician Social Service Director Dermatology 04/28/21 Summer Lara MD [address] [place] [address] Assigned OBGYN Provider 05/10/2105/23 Summer Lara MD [address] [place] [address] 762464 Assigned OBGYN Provider 05/31/21 2 Summer Lara MD [address] [place] [address] Assigned OBGYN Provider 05/24/2105/30 Tavia Wyatt MD [address] [place] [address] 857524 Dermatology 07/14/21 Johnny Murillo MD [address] [place] [address] [address] [place] [address] Assigned Musculoskeletal Provider 08/30/21 03/17/22 Erica Farrell APRN BLUING OVEN TENDER 6405 [facility] [address] [place] [address] Nurse Practitioner Cardiovascular Disease 09/09/21 [facility] [address] [facility] [place] [address] Pharmacist Pharmacist 09/24/21 09/29/21 Tavia Wyatt MD [address] [place] [address] Assigned Surgical Provider 11/29/21 05/07/22 [facility] 3033 [place] [address] Assigned MTM Pharmacist 01/02/22 Rich Barrett MD 3033 [place] [address] Physician Ophthalmology 01/21/22 Neil Kent MD 500 [place] [address] Dermatology 02/24/22 Roney Story DPM [address] [facility] 300 [place], [place] 718907 Assigned Musculoskeletal Provider 03/20/22 08/13/22 Erica Farrell APRN BLUING OVEN TENDER 1700 [place] [address] Assigned Heart and Vascular Provider 04/03/22 04/16/22 Diana Desir [facility] 3033 [place] [address] Assigned MTM Pharmacist 04/07/22 Jelena David OD [address] [facility] [place] [address] Assigned Surgical Provider 05/08/22 10/08/22 Galo Burrell MD Assigned Heart and Vascular Provider 04/17/22 06/11/22 Livan Sharif MD [address] [place] [address] [place] [address]365[address] Cardiovascular Disease 05/14/22 Livan Sharif MD [address] [place] [address] [place] 840255 Assigned Heart and Vascular Provider 06/12/22 07/23/22 Catherine Cm MD [address] [place] [address] [place] 793145 Cardiovascular Disease 07/21/22 Valery Veronica PA-C 909 [place] [address] Physician Social Service Director Dermatology 07/21/22 Catherine Cm MD [address] [place] [address] [place] [address] Assigned Heart and Vascular Provider 07/24/22 11/05/22 Johnny Murillo MD [address] [facility] [address] [place] [address] Assigned Musculoskeletal Provider 08/14/22 10/08/22 Brea Quinn APRN BLUING OVEN TENDER 500 [place], [place] 354405 Nurse Practitioner Dermatology 09/21/22 Brea Quinn APRN BLUING OVEN TENDER 6401 [facility] [place] [address] Assigned Surgical Provider 10/09/22 05/01/24 [place] [address] [address] Assigned Musculoskeletal Provider 10/09/22 05/01/24 Livan Sharif MD [address]405 [facility] [address] [place] [address] Assigned Heart and Vascular Provider 11/06/22 11/12/22 Catherine Cm MD 6405 [facility] [address] [place] [address] Assigned Heart and Vascular Provider 11/13/22 05/27/23 Sydnie Martinez, VJ Personal Advocate & Liaison (PAL) Family Medicine 03/28/23 07/31/23 Alfonso Renteria MD [address] [facility] 200 [place], [place] 265126 Assigned Neuroscience Provider 04/02/23 09/29/24 Cheng Todd PA-C [address] [place] [address] [id number] Assigned PCP 04/30/23 07/15/23 Radha Lomeli APRN BLUING OVEN TENDER 6405 [facility] [address] [place] [address] Assigned Heart and Vascular Provider 05/28/23 11/29/24 Jelena David OD [address] [facility] [address] [place] [phone] Ophthalmology 06/15/23 Pao Joseph, VJ Personal Advocate & Liaison (PAL) Nurse 08/01/23 11/07/23 Esha Grimm PA-C [address] [place] [address] Assigned PCP 07/16/23 Valery Veronica PA-C [address] [place] [address] Physician Social Service Director Dermatology 09/19/23 Rey Tay MD [address] [place] [address] 025155 Gastroenterology 09/20/23 Rocky Zepeda DO [address] [place] [address] 751735 Physician Gastroenterology 09/20/23 Philip Dumont MD [address] [place] [address] 089585 Physician Ophthalmology 09/22/23 Meredith Carrera PA-C 909 [place] [address] Assigned Gastroenterology Provider 11/01/23 Neil Kent MD [address] [address] MD Dermatology 11/02/23 [place] [address] [place] [address]37 Neurological Surgery 12/26/23 Audrey Waite PA-C 500 [place] [address] Physician Social Service Director Dermatology 02/28/24 Valery Veronica PA-C 854928 [place] [address] Physician Social Service Director Dermatology 04/10/24 Herminia Hatch MD [facility]5 [place], [place] 32165125 Assigned Rheumatology Provider 07/02/24 Jelena David OD [address] [facility] [place] [address] Ophthalmology 08/30/24 [place] [address] [address] [place] [address] Assigned Neuroscience Provider 09/30/24 Maru Man PA-C [address], [place] [address] Physician Social Service Director Dermatology 10/03/24 Maru Man PA-C [address] [place] [address] Physician Social Service Director Dermatology 10/22/24 Jelena Dvaid OD [address] [facility] [place] [address] Assigned Surgical Provider 10/31/24 Fabiano Correa NP [address] [place] [address] Assigned Heart and Vascular Provider 11/30/24 Walter Nowak MD [address] [place] [address] Physician Clinical Cardiac Electrophysiology 03/01/25 Liset Márquez MD [address] [address] warper creeler 03/13/25 Lauren Coronado, [facility] [address] [place] [address] Pharmacist Pharmacist 04/15/25 documented as of this encounter
--- OUTSIDE RECORDS SUMMARY | 2025-04-27 | XMS_ITS | Encounter Summary ---
Author Organization [place] Address [address] [place] [address] Care Team Providers Care Printer Technician Name Role Phone Lita Oseguera Unavailable Unavailable Marija Edgar APRN SAMPLE COLOR MAKER Primary Care Provider + Marija Edgar APRN SAMPLE COLOR MAKER Unavailable Keisha Dotson MD Unavailable [phone] Diana Desir [facility] Unavailable [phone] Rain Galaviz PA-C Unavailable Tavia Wyatt MD Unavailable [phone] Erica Farrell APRN SAMPLE COLOR MAKER Unavailable Rich Barrett MD Unavailable [phone] Neil Kent MD Unavailable Diana Desir [facility] Unavailable Jelena David OD Unavailable [phone] Livan Sharif MD Unavailable Catherine Cm MD Unavailable + Valery Veronica PA-C Unavailable Catherine Cm MD Unavailable + Johnny Murillo MD Unavailable [phone] Brea Quinn LABORER PIPELINES SAMPLE COLOR MAKER Unavailable [phone] Brea Quinn LABORER PIPELINES SAMPLE COLOR MAKER Unavailable [phone] Jose Francisco Johnson MD Unavailable Livan Sharif MD Unavailable Catherine Cm MD Unavailable + Sydnie Martinez RN Unavailable Unavailable Alfonso Renteria MD Unavailable [phone] Esha Grimm PA-C Primary Care Provider Cheng Todd PA-C Unavailable [phone] Radha Lomeli APRN SAMPLE COLOR MAKER Unavailable Jelena David OD Unavailable Pao Joseph RN Unavailable Unavailable Esha Grimm PA-C Unavailable [phone] Valery Veronica PA-C Unavailable Rey Tay MD Unavailable Rocky Zepeda DO Unavailable Philip Dumont MD Unavailable Meredith Carrera PA-C Unavailable [phone] Niel Kent MD Unavailable Juan Pablo Emmanuel MD Unavailable Audrey Waite PA-C Unavailable Valery Veronica PA-C Unavailable Herminia Hatch MD Unavailable Jelena David OD Unavailable Juan Pablo Emmanuel MD Unavailable Maru Man PA-C Unavailable + Maru Man PA-C Unavailable + Jelena David OD Unavailable [phone] Fabiano Correa NP Unavailable Walter Nowak MD Unavailable Liset Márquez MD Unavailable Lauren Coronado [facility] Unavailable [phone] Encounter Details Date Type Department Care Team (Late st Contact Info) Description 10/06/2022 [facility] Medical Advice [address] [address] Brea Quinn APRN [facility] [address] [place] [address] Social History Tobacco Use Types [...] often do you attend hinduism or worship serv ices? Never 09/22/2021 Do [...] points; Administer PHQ-9 if positive 1 10/10/2022 [facility] of Occupat ional Health - Occupational [...] in a usp (including now)? No 09/22/2021 [place] Depression Scale Answer Date Recorded [place] Depression Score 5 01/14/2021 Last EPDS Self Harm Result Not on file 01/14 Education Answer Date Recorded What is the highest level of school you have completed or the highest degree you have received? 12th grade 08/07/2020 Comments No Sex and Gender Information Value Date Recorded Sex Assigned at Female 03/02/2021 5:45 PM CDT Legal Sex Female 4:13 AM LITHOPONE MILL WORKER Gender Identity Female 03/02/2021 5:45 PM [...] Description 04/30/2025 10:30 AM CDT Office Visit [facility] Women's [facility] [address], [address] [place] [phone] Liset Márquez MD [address] [place] [address] 05/30/2025 2:45 PM LITHOPONE MILL WORKER Office Visit [facility] Heart [address] [place] [phone] Fabiano Correa, SUPERVISOR DRAWING [address] [place] [id number] Walter Nowak MD [address] [place] 367125 08/07/2025 8:15 AM LITHOPONE MILL WORKER Office Visit [facility] Heart [facility] [address] [facility] [address] [place] [phone] Lucien Grimes MD [address] [place] 045935 08/21/2025 9:00 AM LITHOPONE MILL WORKER Office Visit [facility] [address] [phone] Neil Kent MD 500 [place], [place] 047[address] 10/09/2025 10:45 AM CDT Virtual Visit [facility] [place] [address] [place] [address] 4th [place] [phone] Meredith Carrera PA-C [address] [place] [address] [phone] documented as of this encounter Visit Diagnoses [...] Total Score: 5 08/27/19 23 1:14 PM LITHOPONE MILL WORKER documented as of this encounter Care Teams Printer Technician Relationship Specialty Start Date End Date Marija Edgar APRN SAMPLE COLOR MAKER PCP - General Nurse Practitioner 04/30/20 04/14/23 Esha Grimm PA-C [address] [place] [phone] PCP - General Family Medicine 05/04/23 Lita Oseguera Personal Advocate & Liaison (PAL) 02/28/20 03/27/23 Marija Edgar APRN SAMPLE COLOR MAKER Assigned PCP 06/08/20 04/29/23 Keisha Dotson MD [address] [place] [address] Assigned Neuroscience Provider 06/04/20 04/01/23 Diana Desir [facility] 3033 [place], [place] 648146 Pharmacist Pharmacist 04/17/21 Rain Galaviz PA-C [address] [place] [address] [address] [place] [address] Physician Php Developer Dermatology 04/28/21 Tavia Wyatt MD [address] [place] [address] [address] [place] [address] Dermatology 07/14/21 Erica Farrell APRN SAMPLE COLOR MAKER [address] [place] [address] Nurse Practitioner Cardiovascular Disease 09/09/21 Rich Barrett MD [address] [place] [address] Physician Ophthalmology 01/21/22 Neil Kent MD 500 [place], [place] [phone] Dermatology 02/24/22 [facility] [address] [place] [address] 24[address] Assigned MTM Pharmacist 04/07/22 Jelena David OD [address] [place] [address] [place] [address] Assigned Surgical Provider 05/08/22 10/08/22 Livan Sharif MD [address] [place] [address] Cardiovascular Disease 05/14/22 Catherine Cm MD [address] [place] [address] Cardiovascular Disease 07/21/22 Valery Veronica PA-C [address] [place] [address] Physician Php Developer Dermatology 07/21/22 Catherine Cm MD [address] [facility] [address] [place] [address] Assigned Heart and Vascular Provider 07/24/22 11/05/22 Johnny Murillo MD [address] [place] [address] Assigned Musculoskeletal Provider 08/14/22 10/08/22 Brea Quinn APRN SAMPLE COLOR MAKER [address] [place] [address] 971915 Nurse Practitioner Dermatology 09/21/22 Brea Quinn APRN SAMPLE COLOR MAKER [address] [place] [address] Assigned Surgical Provider 10/09/22 05/01/24 [place] [address] [address] Assigned Musculoskeletal Provider 10/09/22 05/01/24 Livan Sharif MD 6[address] [facility] S [facility] [address] [place] [address] Assigned Heart and Vascular Provider 11/06/22 11/12/22 Catherine Cm MD [address] [place] [address] Assigned Heart and Vascular Provider 11/13/22 05/27/23 Sydnie Martinez RN Personal Advocate & Liaison (PAL) Family Medicine 03/28/23 07/31/23 Alfonso Renteria MD 5775 [facility] 200 [place] [address] Assigned Neuroscience Provider 04/02/23 09/29/24 Cheng Todd PA-C [address] [place] [address] [id number] Assigned PCP 04/30/23 07/15/23 Radha Lomeli APRN SAMPLE COLOR MAKER [address] [place] [address] Assigned Heart and Vascular Provider 05/28/23 11/29/24 Jelena David OD [address] [facility] [place] [place] [address] Ophthalmology 06/15/23 Pao Joseph, VJ Personal Advocate & Liaison (PAL) Nurse 08/01/23 11/07/23 Esha Grimm PA-C [address] [place] [address]546[address] Assigned PCP 07/16/23 Valery Veronica PA-C [address]09 [place], [place] 944835 Physician Php Developer Dermatology 09/19/23 Rey Tay MD [address] [place] [address] Gastroenterology 09/20/23 Evans ZepedauaDO [address] [place] [address] Physician Gastroenterology 09/20/23 Philip Dumont MD [address] [place] [address] Physician Ophthalmology 09/22/23 Meredith Carrera PA-C [address] [place] [address] Assigned Gastroenterology Provider 11/01/23 Neil Kent MD [address] [address] Dermatology 11/02/23 [place] [address] [address] [facility] [place] [address] Neurological Surgery 12/26/23 Audrey Waite PA-C [address] [place] [address] Physician Php Developer Dermatology 02/28/24 Valery Veronica PA-C 023846 [place] [address] Physician Php Developer Dermatology 04/10/24 Herminia Hatch MD [address] [place] [address] [id number] Assigned Rheumatology Provider 07/02/24 Jelena David OD [address] [facility] [place] [address] Ophthalmology 08/30/24 [place] [address] [place] [address] Assigned Neuroscience Provider 09/30/24 Maru Man PA-C [address] [place] [address] Physician Php Developer Dermatology 10/03/24 Maru Man PA-C [address] [place] [address] Physician Php Developer Dermatology 10/22/24 Jelena David OD 3[address] [facility] [place] [address] Assigned Surgical Provider 10/31/24 Fabiano Correa NP [address] [place] 388385 Assigned Heart and Vascular Provider 11/30/24 Walter Nowak MD [address] [place] [id number] Physician Clinical Cardiac Electrophysiology 03/01/25 Liset Márquez MD [address] [facility] 300 [place] [address] clubhouse attendant 03/13/25 Lauren Coronado, [facility] [address] [place] [address] Pharmacist Pharmacist 04/15/25 documented as of this encounter
--- OUTSIDE RECORDS SUMMARY | 2025-04-27 00:01 | XMS_ITS | Encounter Summary ---
Author Organization [place] Address [address] [place] [address] Care Team Providers Care Steamboat Pilot Name Role Phone Lita Oseguera Unavailable Unavailable Marija Edgar APRN BLEACHER KRAFT PULP Primary Care Provider + Marija Edgar APRN BLEACHER KRAFT PULP Unavailable [phone] Keisha Dotson MD Unavailable Diana Desir [facility] Unavailable Rain Galaviz PA-C Unavailable Tavia Wyatt MD Unavailable Erica Farrell APRN BLEACHER KRAFT PULP Unavailable Rich Barrett MD Unavailable [phone] Neil Kent MD Unavailable Roney Story DPM Unavailable Diana Desir [facility] Unavailable Jelena David OD Unavailable Livan Sharif MD Unavailable Livan Sharif MD Unavailable Catherine Cm MD Unavailable + Valery Veronica PA-C Unavailable Catherine Cm MD Unavailable + Johnny Murillo MD Unavailable [phone] Brea Quinn PERIOPERATIVE EDUCATOR BLEACHER KRAFT PULP Unavailable [phone] Brea Quinn PERIOPERATIVE EDUCATOR BLEACHER KRAFT PULP Unavailable [phone] Jose Francisco Johnson MD Unavailable Livan Sharif MD Unavailable Catherine Cm MD Unavailable + Sydnie Martinez RN Unavailable Unavailable Alfonso Renteria MD Unavailable [phone] Esha Grimm PA-C Primary Care Provider Cheng Todd PA-C Unavailable [phone] Radha Lomeli PERIOPERATIVE EDUCATOR BLEACHER KRAFT PULP Unavailable Jelena David OD Unavailable Pao Joseph RN Unavailable Unavailable Esha Grimm PA-C Unavailable [phone] Valery Veronica PA-C Unavailable Rey Tay MD Unavailable Rocky Zepeda DO Unavailable Philip Dumont MD Unavailable Meredith Carrera PA-C Unavailable Neil Kent MD Unavailable Juan Pablo Emmanuel MD Unavailable [phone] Audrey Waite PA-C Unavailable Valery Veronica PA-C Unavailable Herminia Hatch MD Unavailable Jelena David OD Unavailable [phone] Juan Pablo Emmanuel MD Unavailable [phone] Maru Man PA-C Unavailable + Maru Man PA-C Unavailable +[phone] Jelena David OD Unavailable [phone] Fabiano Correa NP Unavailable [phone] Walter Nowak MD Unavailable Liset Márquez MD Unavailable Lauren Coronado [facility] Unavailable [phone] Encounter Details Date Type Department Care Team (Late st Contact Info) Description 07/20/2022 MyC Medical Advice [facility] Heart [address] [address] Pao Donahue RN Social History [...] How often do you attend episcopal or yazidi serv ices? Never 09/22/2021 Do [...] points; Administer PHQ-9 if positive 1 05/13/2022 [facility] [place] of Occupat ional Health - Occupational Stress [...] in a snf (including now)? No 09/22/2021 [place] Depression Scale Answer Date Recorded [place] Depression Score 5 01/14/2021 Last EPDS Self Harm Result Not on file 01/14 Education Answer Date Recorded What is the highest level of school you have completed or the highest degree you have received? 12th grade 08/07/2020 Comments No Sex and Gender Information Value Date Recorded Sex Assigned at Female 03/02/2021 5:45 PM CDT Legal Sex Female 4:13 AM TEACHING ASSOCIATE Gender Identity Female 03/02/2021 5:45 PM CDT Sexual Orientation Straight 02/28/2020 12 :51 AM CDT COVID-19 Exposure Response Date Recorded In the last 10 days, have yo u been in contact with someone who was confirmed or suspected to have Coronavirus/COVID-19? No / Unsure 07/23/2022 6:45 AM TEACHING ASSOCIATE documented as of this encounter Plan of Treatment Upcoming Encounters Date Type Department Care Team (Late st Contact Info) Description 04/30/2025 10:30 AM CDT Office Visit [facility] Women[facility] [address], [address] [place] [phone] Liset Márquez MD [address] [place] [address] 05/30/2025 2:45 PM TEACHING ASSOCIATE Office Visit [facility] Heart [address] [place] [address] Fabiano Correa, BRYCE [address] [place] [address] Walter Nowak MD [address] [place] [address] 08/07/2025 8:15 AM TEACHING ASSOCIATE Office Visit [facility] Heart [facility] 6[address] [facility] [address] [place] [phone] Lucien Grimes MD [address] [place] 616735 08/21/2025 9:00 AM TEACHING ASSOCIATE Office Visit [facility] [address] [phone] Neil Kent MD [address] [place] [address] 183645 10/09/2025 10:45 AM CDT Virtual Visit [facility] Gastroenterology Clinic [address] [phone] Meredith Carrera PA-C [address] [place] [address] 993545 documented as of this encounter Visit Diagnoses [...] documented as of this encounter Care Teams Steamboat Pilot Relationship Specialty Start Date End Date Marija Edgar APRN BLEACHER KRAFT PULP PCP - General Nurse Practitioner 04/30/20 04/14/23 Esha Grimm PA-C [address] [place] [address] PCP - General Family Medicine 05/04/23 Lita Oseguera Personal Advocate & Liaison (PAL) 02/28/20 03/27/23 Marija Edgar APRN BLEACHER KRAFT PULP Assigned PCP 06/08/20 04/29/23 Keisha Dotson MD 9[address] [place], [place] 180325 Assigned Neuroscience Provider 06/04/20 04/01/23 Diana Desir [facility] [address] [place], [place] 480186 Pharmacist Pharmacist 04/17/21 Rain Galaviz PA-C [address] [place] [address] [address] [place] [address] Physician Voicer Dermatology 04/28/21 Tavia Wyatt MD [address] [place] [address] DR ARZO Lara [place] [address] Dermatology 07/14/21 Erica Farrell APRN BLEACHER KRAFT PULP [address] [place] [address] Nurse Practitioner Cardiovascular Disease 09/09/21 Rich Barrett MD [address] [place] [address] Physician Ophthalmology 01/21/22 Neil Kent MD 500 [place] [address] Dermatology 02/24/22 Roney Story DPM [address] [facility] [address] [place] [address] Assigned Musculoskeletal Provider 03/20/22 08/13/22 Diana Desir, [facility] [address] [place] [address] Assigned MTM Pharmacist 04/07/22 Jelena David OD [address] [facility] [place] [address] Assigned Surgical Provider 05/08/22 10/08/22 Livan Sharif MD [address] [place] [address] Cardiovascular Disease 05/14/22 Livan Sharif MD [address] [place] [address] Assigned Heart and Vascular Provider 06/12/22 07/23/22 Catherine Cm MD [address] [facility] [address] [place] [address] Cardiovascular Disease 07/21/22 Valery Veronica, PAUcheC [address] [place] [address] Physician Voicer Dermatology 07/21/22 Catherine Cm MD [address] [facility] [facility] [address] [place] [address] Assigned Heart and Vascular Provider 07/24/22 11/05/22 Johnny Murillo MD [address] [place] [address] 057484 Assigned Musculoskeletal Provider 08/14/22 10/08/22 Brea Quinn APRN BLEACHER KRAFT PULP [address] [place] [address] 849065 Nurse Practitioner Dermatology 09/21/22 Brea Quinn APRN BLEACHER KRAFT PULP [address] [place] [address] [place] [address] Assigned Surgical Provider 10/09/22 05/01/24 [place] [address] [place] [address] Assigned Musculoskeletal Provider 10/09/22 05/01/24 Livan Sharif MD [address] [place] [address] Assigned Heart and Vascular Provider 11/06/22 11/12/22 Catherine Cm MD [address] [place] [address] Assigned Heart and Vascular Provider 11/13/22 05/27/23 Sydnie Martinez RN Personal Advocate & Liaison (PAL) Family Medicine 03/28/23 07/31/23 Alfonso Renteria MD 5775 [facility] 200 [place] [address] Assigned Neuroscience Provider 04/02/23 09/29/24 Cheng Todd PA-C [address] [place] [address] Assigned PCP 04/30/23 07/15/23 Radha Lomeli, PERIOPERATIVE EDUCATOR BLEACHER KRAFT PULP [address] [place] [address] Assigned Heart and Vascular Provider 05/28/23 11/29/24 Jelena David OD [facility] [place] [address] Ophthalmology 06/15/23 Pao Joseph, VJ Personal Advocate & Liaison (PAL) Nurse 08/01/23 11/07/23 Esha Grimm PA-C [address] [place] [address] Assigned PCP 07/16/23 Valery Veronica PA-C [address] [place] [address] 868815 Physician Voicer Dermatology 09/19/23 Rey Tya MD [address] [place] [address] MD Gastroenterology 09/20/23 Rocky Zepeda DO [address] [place] [address] 130405 Physician Gastroenterology 09/20/23 Philip Dumont MD [address] [place] [address] 170655 Physician Ophthalmology 09/22/23 Meredith Carrera PA-C [address] [place] [address] 886285 Assigned Gastroenterology Provider 11/01/23 Neli Kent MD [address] [place] [address] Dermatology 11/02/23 [place] [address] [place] [place] [address] Neurological Surgery 12/26/23 Audrey Waite PA-C 500 [place] [address] Physician Voicer Dermatology 02/28/24 Valery Veronica PA-C [id number] [address] [place] [address] Physician Voicer Dermatology 04/10/24 Herminia Hatch MD [address] [place] [address] Assigned Rheumatology Provider 07/02/24 [place] [address] [place] [address] [place] [address] Ophthalmology 08/30/24 [place] [address] [place] [place] [address] Assigned Neuroscience Provider 09/30/24 Maru Man PA-C [address] [place] [address] Physician Voicer Dermatology 10/03/24 Maru Man PA-C [address] [place] [address] Physician Voicer Dermatology 10/22/24 Jelena David OD [address] [place] [address] [place] [address] Assigned Surgical Provider 10/31/24 Fabiano Correa NP [address] [place] [address] Assigned Heart and Vascular Provider 11/30/24 Walter Nowak MD 6405 [place] [address] Physician Clinical Cardiac Electrophysiology 03/01/25 Liset Márquez MD [address] 875804 hospice volunteer 03/13/25 Lauren Coronado, [facility] [address] [place] [address] Pharmacist Pharmacist 04/15/25 documented as of this encounter
--- OUTSIDE RECORDS SUMMARY | 2025-04-27 00:01 | XMS_ITS | Encounter Summary ---
Author Organization [place] Address [address] [place] [address] Care Team Providers Care Air Brake Adjuster Name Role Phone Lita Oseguera Unavailable Unavailable Marija Edgar APRN TEAM SUPERVISOR Primary Care Provider + Marija Edgar APRN TEAM SUPERVISOR Unavailable [phone] Keisha Dotson MD Unavailable Diana Desir [facility] Unavailable Rain Galaviz PA-C Unavailable Tavia Wyatt MD Unavailable Erica Farrell APRN TEAM SUPERVISOR Unavailable Rich Barrett MD Unavailable [phone] Neil Kent MD Unavailable Roney Story DPM Unavailable Diana Desir [facility] Unavailable [phone] Jelena David OD Unavailable Livan Sharif MD Unavailable Livan Sharif MD Unavailable Catherine Cm MD Unavailable + Valery Veronica PA-C Unavailable Catherine Cm MD Unavailable + Johnny Murillo MD Unavailable [phone] Brea Quinn FLARING MACHINE OPERATOR TEAM SUPERVISOR Unavailable [phone] Brea Quinn FLARING MACHINE OPERATOR TEAM SUPERVISOR Unavailable [phone] Jose Francisco Johnson MD Unavailable Livan Sharif MD Unavailable Catherine Cm MD Unavailable + Sydnie Martinez RN Unavailable Unavailable Alfonso Renteria MD Unavailable [phone] Esha Grimm PA-C Primary Care Provider Cheng Todd PA-C Unavailable [phone] Radha Lomeli FLARING MACHINE OPERATOR TEAM SUPERVISOR Unavailable Jelena David OD Unavailable [phone] Pao Joseph RN Unavailable Unavailable Esha Grimm PA-C Unavailable [phone] Valery Veronica PA-C Unavailable Rey Tay MD Unavailable Rocky Zepeda DO Unavailable Philip Dumont MD Unavailable Meredith Carrera PA-C Unavailable Neil Kent MD Unavailable Juan Pablo Emmanuel MD Unavailable Audrey Waite PA-C Unavailable Valery Veronica PA-C Unavailable [phone] Herminia Hatch MD Unavailable Jelena David OD Unavailable [phone] Juan Pablo Emmanuel MD Unavailable [phone] Maru Man PA-C Unavailable +[phone] Maru Man PA-C Unavailable +[phone] Jelena David OD Unavailable [phone] Fabiano Correa NP Unavailable [phone] Walter Nowak MD Unavailable Liset Márquez MD Unavailable Lauren Coronado [facility] Unavailable [phone] Encounter Details Date Type Department Care Team (Late st Contact Info) Description 07/07/[address] [facility] Heart [facility] [address] [facility] [address] [place] [address] Livan Sharif MD [address] [facility] [address] [place] [address] Social History Tobacco Use Types [...] How often do you attend yarsanism or scientologist serv ices? Never 09/22/2021 Do [...] positive 1 05/13/2022 [facility] [...] in a correction (including now)? No 09/22/2021 [place] Depression Scale Answer Date Recorded [place] Depression Score 5 01/14/2021 Last EPDS Self Harm Result Not on file 01/14 Education Answer Date Recorded What is the highest level of school you have completed or the highest degree you have received? 12th grade 08/07/2020 Comments No Sex and Gender Information Value Date Recorded Sex Assigned at Female 03/02/2021 5:45 PM CDT Legal Sex Female 4:13 AM ORNAMENTER HAND Gender Identity Female 03/02/2021 5:45 PM CDT Sexual Orientation Straight 02/28/2020 12 :51 AM CDT COVID-19 Exposure Response Date Recorded In the last 10 days, have yo u been in contact with someone who was confirmed or suspected to have Coronavirus/COVID-19? No / Unsure 06/25/2022 8:44 AM ORNAMENTER HAND documented as of this encounter Plan of Treatment Upcoming Encounters Date Type Department Care Team (Late st Contact Info) Description 04/30/2025 10:30 AM CDT Office Visit [facility] Women's [facility] [address], [address] [facility] [place] [phone] Liset Márquez MD [address] [place], [place] [phone] 05/30/2025 2:45 PM ORNAMENTER HAND Office Visit [facility] Heart [facility] [address] [facility] [address] [place] [phone] Fabiano Correa NP [address] [place] [id number] Walter Nowak MD [address] [place] [id number] 08/07/2025 8:15 AM ORNAMENTER HAND Office Visit [facility] Heart [facility] [address] [facility] [address] [place] [address] Lucien Grimes MD [address] [place] [id number] 08/21/2025 9:00 AM ORNAMENTER HAND Office Visit [facility] [address] [phone] Neil Kent MD [address] [place] [address] [phone] 10/09/2025 10:45 AM CDT Virtual Visit [facility] Gastroenterology [address] 4th [place] [phone] Meredith Carrera PA-C [address] [place] [address] documented as of this encounter Visit Diagnoses [...] as of this encounter Care Teams Air Brake Adjuster Relationship Specialty Start Date End Date Marija Edgar APRN TEAM SUPERVISOR PCP - General Nurse Practitioner 04/30/20 04/14/23 Esha Grimm PA-C [address] [place] [phone] PCP - General Family Medicine 05/04/23 Lita Oseguera Personal Advocate & Liaison (PAL) 02/28/20 03/27/23 Marija Edgar APRN TEAM SUPERVISOR Assigned PCP 06/08/20 04/29/23 Keisha Dotson MD 9[address] [place], [place] [phone] Assigned Neuroscience Provider 06/04/20 04/01/23 Diana Desir [facility] 3033 [place], [place] 230906 Pharmacist Pharmacist 04/17/21 Rain Galaviz PA-C [address] [place] [address] [address] [place] [address] Physician Flow Match Sofa Cutter Dermatology 04/28/21 Tavia Wyatt MD [address] [place] [address] DR [address] Lara [place] [address] Dermatology 07/14/21 Eirca Farrell APRN TEAM SUPERVISOR [address] [place] [address] Nurse Practitioner Cardiovascular Disease 09/09/21 Rich Barrett MD [address] [place] [address] Physician Ophthalmology 01/21/22 Neil Kent MD 500 [place] [address] Dermatology 02/24/22 Roney Story DPM [address] [facility] [address] [place], [place] 369987 Assigned Musculoskeletal Provider 03/20/22 08/13/22 Diana Desir, [facility] [address] [place], [place] 830846 Assigned MTM Pharmacist 04/07/22 Jelena David OD [address] [facility] [place] [address] Assigned Surgical Provider 05/08/22 10/08/22 Livan Sharif MD [address] [facility] [address] [place] [id number] Cardiovascular Disease 05/14/22 Livan Sharif MD [address] [facility] [address] [place] 512705 Assigned Heart and Vascular Provider 06/12/22 07/23/22 Catherine Cm MD [address] [place] [address] [id number] Cardiovascular Disease 07/21/22 Valery Veronica PA-C [address] [place] [address] 163705 Physician Flow Match Sofa Cutter Dermatology 07/21/22 Catherine Cm MD [address] [place] [address] [id number] Assigned Heart and Vascular Provider 07/24/22 11/05/22 Johnny Murillo MD [address] [place] [address] [phone] Assigned Musculoskeletal Provider 08/14/22 10/08/22 Brea Quinn APRN TEAM SUPERVISOR [address] [place] [address] 235485 Nurse Practitioner Dermatology 09/21/22 Brea Quinn APRN TEAM SUPERVISOR [address] [place] [address] [facility] [place] 967642 Assigned Surgical Provider 10/09/22 05/01/24 [place] [address] [place] [address] Assigned Musculoskeletal Provider 10/09/22 05/01/24 Livan Sharif MD [address] [address] [place] [address] Assigned Heart and Vascular Provider 11/06/22 11/12/22 Catherine Cm MD [address] [address] [place] [address] Assigned Heart and Vascular Provider 11/13/22 05/27/23 Sydnie Martinez RN Personal Advocate & Liaison (PAL) Family Medicine 03/28/23 07/31/23 Alfonso Renteria MD [address] [facility] 200 [place] [address] Assigned Neuroscience Provider 04/02/23 09/29/24 Cheng Todd PA-C [address] [place] [address] [phone] Assigned PCP 04/30/23 07/15/23 Radha Lomeli APRN TEAM SUPERVISOR [address] [place] [address] Assigned Heart and Vascular Provider 05/28/23 11/29/24 Jelena David OD [address] [facility] [place] [address] MD Ophthalmology 06/15/23 Pao Joseph, RN Personal Advocate & Liaison (PAL) Nurse 08/01/23 11/07/23 Esha Grimm PA-C [address] [place] [phone] Assigned PCP 07/16/23 Valery Veronica PA-C [address] [place] [address] Physician Flow Match Sofa Cutter Dermatology 09/19/23 Rey Tay MD [address] [place] [address] [id number] MD Gastroenterology 09/20/23 Rocky Zepeda DO [address] [place] [address] 729215 Physician Gastroenterology 09/20/23 Philip Dumont MD [address] [place] [address] 836605 Physician Ophthalmology 09/22/23 Meredith Carrera PA-C [address] [place] [address] 104275 Assigned Gastroenterology Provider 11/01/23 Neil Kent MD [address] [place] [address] 669800 Dermatology 11/02/23 [place] [address] [place] [address] Neurological Surgery 12/26/23 Audrey Waite PA-C 500 [place] [address] Physician Flow Match Sofa Cutter Dermatology 02/28/24 Valery Veronica PA-C 526581 [place], [place] [address] Physician Flow Match Sofa Cutter Dermatology 04/10/24 Herminia Hatch MD [address] [place] [address] [phone] Assigned Rheumatology Provider 07/02/24 Jelena David, SONJA [address] [place] [address] [place] [address] Ophthalmology 08/30/24 [place] [address] [place] [address] Assigned Neuroscience Provider 09/30/24 Maru Man PA-C [address] [place] [address] Physician Flow Match Sofa Cutter Dermatology 10/03/24 Maru Man PA-C [address] [place] [address] Physician Flow Match Sofa Cutter Dermatology 10/22/24 Jelena David, SONJA [address] [place] [address] [place] [address] Assigned Surgical Provider 10/31/24 Fabiano Correa, NEEDLE LOOM WEAVER [address] [place] [address] Assigned Heart and Vascular Provider 11/30/24 Walter Nowak MD [address] [place] [address] Physician Clinical Cardiac Electrophysiology 03/01/25 Liset Márquez MD [address] [place] [address] core maker 03/13/25 Lauren Coronado, [facility] 9[address] [place], [place] 754915 Pharmacist Pharmacist 04/15/25 documented as of this encounter
--- OUTSIDE RECORDS SUMMARY | 2025-04-27 00:01 | XMS_ITS | Encounter Summary ---
Author Organization [place] Address [address] [place] [address] Care Team Providers Care Batch Weigher Name Role Phone Lita Oseguera Unavailable Unavailable Marija Edgar APRN CLAIMS COUNSEL Primary Care Provider + Marija Edgar APRN CLAIMS COUNSEL Unavailable [phone] Keisha Dotson MD Unavailable Diana Desir [facility] Unavailable Rain Galaviz PA-C Unavailable Tavia Wyatt MD Unavailable Erica Farrell APRN CLAIMS COUNSEL Unavailable Rich Barrett MD Unavailable [phone] Neil Kent MD Unavailable Roney Story DPM Unavailable Diana Desir [facility] Unavailable Jelena David OD Unavailable Livan Sharif MD Unavailable Livan Sharif MD Unavailable Catherine Cm MD Unavailable + Valery Veronica PA-C Unavailable Catherine Cm MD Unavailable + Johnny Murillo MD Unavailable [phone] Brea Quinn MASON FOREMAN/SUPERINTENDANT CLAIMS COUNSEL Unavailable [phone] Brea Quinn MASON FOREMAN/SUPERINTENDANT CLAIMS COUNSEL Unavailable [phone] Jose Francisco Johnson MD Unavailable Livan Sharif MD Unavailable Catherine Cm MD Unavailable + Sydnie Martinez RN Unavailable Unavailable Alfonso Renteria MD Unavailable [phone] Esha Grimm PA-C Primary Care Provider Cheng Todd PA-C Unavailable [phone] Radha Lomeli MASON FOREMAN/SUPERINTENDANT CLAIMS COUNSEL Unavailable Jelena David OD Unavailable Pao Joseph RN Unavailable Unavailable Esha Grimm PA-C Unavailable [phone] Valery Veronica PA-C Unavailable Rey Tay MD Unavailable Rocky Zepeda DO Unavailable Philip Dumont MD Unavailable Meredith Carrera PA-C Unavailable Neil Kent MD Unavailable Juan Pablo Emmanuel MD Unavailable Audrey Waite PA-C Unavailable Valery Veronica PA-C Unavailable Herminia Hatch MD Unavailable Jelena David OD Unavailable Juan Pablo Emmanuel MD Unavailable [phone] Maru Man PA-C Unavailable +[phone] Maru Man PA-C Unavailable +[phone] Jelena David OD Unavailable [phone] Fabiano Correa NP Unavailable [phone] Walter Nowak MD Unavailable Liset Márquez MD Unavailable Lauren Coronado [facility] Unavailable [phone] Encounter Details Date Type Department Care Team (Late st Contact Info) Description 07/20/2022 MyC Medical Advice [facility] Heart [facility] [address] [facility] [address] [place] [address] Livan Sharif MD [address] [facility] [address] [place] [address] Social History Tobacco Use Types [...] How often do you attend religion or gnosticist serv ices? Never 09/22/2021 Do [...] in a halfway (including now)? No 09/22/2021 [place] Depression Scale Answer Date Recorded [place]nis Depression Score 5 01/14/2021 Last EPDS Self Harm Result Not on file 01/14 Education Answer Date Recorded What is the highest level of school you have completed or the highest degree you have received? 12th grade 08/07/2020 Comments No Sex and Gender Information Value Date Recorded Sex Assigned at Female 03/02/2021 5:45 PM CDT Legal Sex Female 4:13 AM ATTRACTIONS ASSOCIATE Gender Identity Female 03/02/2021 5:45 PM CDT Sexual Orientation Straight 02/28/2020 12 :51 AM CDT COVID-19 Exposure Response Date Recorded In the last 10 days, have yo u been in contact with someone who was confirmed or suspected to have Coronavirus/COVID-19? No / Unsure 07/23/2022 6:45 AM ATTRACTIONS ASSOCIATE documented as of this encounter Plan of Treatment Upcoming Encounters Date Type Department Care Team (Late st Contact Info) Description 04/30/2025 10:30 AM CDT Office Visit [facility] Women's [facility] [address], [address] [place] [phone] Liset Márquez MD [address] [place], [place] [phone] 05/30/2025 2:45 PM ATTRACTIONS ASSOCIATE Office Visit [facility] Heart [facility] 6[address] [facility] [address] [place] [phone] Fabiano Correa NP [address] [place] 344765 Walter Nowak MD [address] [place] 09[address]05 08/07/2025 8:15 AM ATTRACTIONS ASSOCIATE Office Visit [facility] Heart [facility] 6[address] [facility] [address] [place] [address] Lucien Grimes MD [address] [place] [id number] 08/21/2025 9:00 AM ATTRACTIONS ASSOCIATE Office Visit [facility] [address] [phone] Neil Kent MD [address] [place] [address] [phone] 10/09/2025 10:45 AM CDT Virtual Visit [facility] Gastroenterology [address] 4th [place] [phone] Meredith Carrera PA-C [address] [place] [address] documented as of this encounter Visit Diagnoses [...] documented as of this encounter Care Teams Batch Weigher Relationship Specialty Start Date End Date Marija Edgar APRN CLAIMS COUNSEL PCP - General Nurse Practitioner 04/30/20 04/14/23 Esha Grimm PA-C [address] [place] [phone] PCP - General Family Medicine 05/04/23 Lita Oseguera Personal Advocate & Liaison (PAL) 02/28/20 03/27/23 Marija Edgar APRN CLAIMS COUNSEL Assigned PCP 06/08/20 04/29/23 Keisha Dotson MD 909 [place], [place] 106615 Assigned Neuroscience Provider 06/04/20 04/01/23 Diana Desir [facility] 3033 [place], [place] [phone] Pharmacist Pharmacist 04/17/21 Rain Galaviz PA-C [address] [place] [address] [address] [place] [address] Physician Utility Technician Dermatology 04/28/21 Tavia Wyatt MD [address] [place] [address] DR [address] Lara [place] [address] Dermatology 07/14/21 Erica Farrell APRN CLAIMS COUNSEL [address] [place] [address] Nurse Practitioner Cardiovascular Disease 09/09/21 Rich Barrett MD [address] [place] [address] Physician Ophthalmology 01/21/22 Neil Kent MD 500 [place] [address] Dermatology 02/24/22 [place] [address] [facility] [address] [place], [place] 391507 Assigned Musculoskeletal Provider 03/20/22 08/13/22 Diana Desir, [facility] [address] [place], [place] 426[address] Assigned MTM Pharmacist 04/07/22 Jelena David OD [address] [facility] [place] [address] Assigned Surgical Provider 05/08/22 10/08/22 Livan Sharif MD [address] [facility] [address] [place] [phone] Cardiovascular Disease 05/14/22 Livan Sharif MD [address] [facility] [address] [place] 906035 Assigned Heart and Vascular Provider 06/12/22 07/23/22 Catherine Cm MD [address] [place] [address] 235755 Cardiovascular Disease 07/21/22 Valery Veronica PA-C [address] [place] [address] 010595 Physician Utility Technician Dermatology 07/21/22 Catherine Cm MD [address] [place] [address] 621085 Assigned Heart and Vascular Provider 07/24/22 11/05/22 Johnny Murillo MD [address] [place] [address] 188314 Assigned Musculoskeletal Provider 08/14/22 10/08/22 Brea Quinn APRN CLAIMS COUNSEL [address] [place] [address] 287585 Nurse Practitioner Dermatology 09/21/22 Brea Quinn APRN CLAIMS COUNSEL [address] [place] [address] [facility] [place] 092452 Assigned Surgical Provider 10/09/22 05/01/24 [place] [address] [place] [address] Assigned Musculoskeletal Provider 10/09/22 05/01/24 Livan Sharif MD [address] [address] [place] [address] Assigned Heart and Vascular Provider 11/06/22 11/12/22 Catherine Cm MD [address] [place] [address] Assigned Heart and Vascular Provider 11/13/22 05/27/23 Sydnie Martinez RN Personal Advocate & Liaison (PAL) Family Medicine 03/28/23 07/31/23 Alfonso Renteria MD 5775 [facility] 200 [place] [address] Assigned Neuroscience Provider 04/02/23 09/29/24 Cheng Todd PA-C [address] [place] [address] [phone] Assigned PCP 04/30/23 07/15/23 Radha Lomeli APRN CLAIMS COUNSEL [address] [place] [address] Assigned Heart and Vascular Provider 05/28/23 11/29/24 Jelena David OD [address] [place] [address] MD Ophthalmology 06/15/23 Pao Joseph, RN Personal Advocate & Liaison (PAL) Nurse 08/01/23 11/07/23 Esha Grimm PA-C [address] [place] [address]533[address] Assigned PCP 07/16/23 Valery Veronica PA-C [address] [place] [address] Physician Utility Technician Dermatology 09/19/23 Rey Tay MD [address] [place] [address] 198145 MD Gastroenterology 09/20/23 Rocky Zepeda DO [address] [place] [address] 914025 Physician Gastroenterology 09/20/23 Philip Dumont MD [address] [place] [address] 233435 Physician Ophthalmology 09/22/23 Meredith Carrera PA-C [address] [place] [address] 597885 Assigned Gastroenterology Provider 11/01/23 Neil Kent MD [address] [place] [address] 655390 Dermatology 11/02/23 [place] [address] [place] [address] Neurological Surgery 12/26/23 Audrey Waite PA-C 500 [place] [address] Physician Utility Technician Dermatology 02/28/24 Valery Veronica PA-C 681671 [place] [address] Physician Utility Technician Dermatology 04/10/24 Herminia Hatch MD [address] [place] [address] [phone] Assigned Rheumatology Provider 07/02/24 Jelena David, SONJA [address] [place] [address] [place] [address] Ophthalmology 08/30/24 [place] [address] [place] [address] Assigned Neuroscience Provider 09/30/24 Maru Man PA-C [address] [place] [address] Physician Utility Technician Dermatology 10/03/24 Maru Man PA-C [address] [place] [address] Physician Utility Technician Dermatology 10/22/24 Jelena David, SONJA [address] [place] [address] [place] [address] Assigned Surgical Provider 10/31/24 Fabiano Correa, CUSTOM WOOD STAIR BUILDER [address] [place] [address] Assigned Heart and Vascular Provider 11/30/24 Walter Nowak MD [address] [place] [address] Physician Clinical Cardiac Electrophysiology 03/01/25 Liset Márquez MD [address] [place] [address] ip counsel 03/13/25 Lauren Coronado, [facility] 909 [place], [place] 417075 Pharmacist Pharmacist 04/15/25 documented as of this encounter
--- OUTSIDE RECORDS SUMMARY | 2025-04-27 00:01 | XMS_ITS | Encounter Summary ---
Author Organization [facility] Address [address] [place] [address] Care Team Providers Care Scale Clerk Name Role Phone Lita Oseguera Unavailable Unavailable Marija Edgar APRN GANG MOWER OPERATOR Primary Care Provider + Marija Edgar APRN GANG MOWER OPERATOR Unavailable [phone] Keisha Dotson MD Unavailable Diana Desir [facility] Unavailable Rain Galaviz PA-C Unavailable [phone] Tavia Wyatt MD Unavailable Erica Farrell APRN GANG MOWER OPERATOR Unavailable Rich Barrett MD Unavailable [phone] Neil Kent MD Unavailable Roney Story DPM Unavailable Diana Desir [facility] Unavailable Jelena David OD Unavailable Livan Sharif MD Unavailable Livan Sharif MD Unavailable Catherine Cm MD Unavailable + Valery Veronica PA-C Unavailable Catherine Cm MD Unavailable + Johnny Murillo MD Unavailable [phone] Brea Quinn HEEL COMPRESSOR GANG MOWER OPERATOR Unavailable [phone] Brea Quinn HEEL COMPRESSOR GANG MOWER OPERATOR Unavailable [phone] Jose Francisco Johnson MD Unavailable Livan Sharif MD Unavailable Catherine Cm MD Unavailable + Sydnie Martinez RN Unavailable Unavailable Alfonso Renteria MD Unavailable [phone] Esha Grimm PA-C Primary Care Provider Cheng Todd PA-C Unavailable [phone] Radha Lomeli HEEL COMPRESSOR GANG MOWER OPERATOR Unavailable Jelena David OD Unavailable Pao Joseph RN Unavailable Unavailable Esha Grimm PA-C Unavailable [phone] Valery Veronica PA-C Unavailable Rey Tay MD Unavailable Rocky Zepeda DO Unavailable Philip Dumont MD Unavailable Meredith Carrera PA-C Unavailable Neil Kent MD Unavailable Juan Pablo Emmanuel MD Unavailable Audrey Waite PA-C Unavailable Valery Veronica PA-C Unavailable Herminia Hatch MD Unavailable Jelena David OD Unavailable [phone] Juan Pablo Emmanuel MD Unavailable [phone] Maru Man PA-C Unavailable + Maru Man PA-C Unavailable +[phone] Jelena David OD Unavailable [phone] Fabiano Correa NP Unavailable [phone] Walter Nowak MD Unavailable Liset Márquez MD Unavailable Lauren Coronado [facility] Unavailable [phone] Encounter Details Date Type Department Care Team (Late st Contact Info) Description 07/02/2022 MyC Medical Advice [address] [address] Diana Desir, [facility] [address] [place] [address] Social History Tobacco Use Types Packs/Day Years [...] How often do you attend druze or sabianist serv ices? Never 09/22/2021 Do [...] [facility] [...] in a long-term (including now)? No 09/22/2021 Berwick Depression Scale Answer Date Recorded Berwick Depression Score 5 01/14/2021 Last EPDS Self Harm Result Not on file 01/14 Education Answer Date Recorded What is the highest level of school you have completed or the highest degree you have received? 12th grade 08/07/2020 Comments No Sex and Gender Information Value Date Recorded Sex Assigned at Female 03/02/2021 5:45 PM CDT Legal Sex Female 4:13 AM BUS DRIVER SUPERVISOR Gender Identity Female 03/02/2021 5:45 PM CDT Sexual Orientation Straight 02/28/2020 12 :51 AM CDT COVID-19 Exposure Response Date Recorded In the last 10 days, have yo u been in contact with someone who was confirmed or suspected to have Coronavirus/COVID-19? No / Unsure 06/25/2022 8:44 AM BUS DRIVER SUPERVISOR documented as of this encounter Plan of Treatment Upcoming Encounters Date Type Department Care Team (Late st Contact Info) Description 04/30/2025 10:30 AM CDT Office Visit [facility] [address], [address] [place] [address] Liset Márquez MD [address] [place] [address] 05/30/2025 2:45 PM BUS DRIVER SUPERVISOR Office Visit [facility] Heart [facility] [address] [facility] [address] [place] [phone] Fabiano Correa NP [address] [place] 268625 Walter Nowak MD [address] [place] [place] [id number] 08/07/2025 8:15 AM BUS DRIVER SUPERVISOR Office Visit [facility] Heart [facility] [address] [facility] [address] [place] [phone] Lucien Grimes MD [address] [facility]00 [place] [id number] 08/21/2025 9:00 AM BUS DRIVER SUPERVISOR Office Visit [facility] [address] [phone] Neil Kent MD [address] [place] [address] [phone] 10/09/2025 10:45 AM CDT Virtual Visit [facility] G[facility] Clinic [address] 4th [place] [phone] Meredith Carrera PA-C [address] [place] [address] 363645 documented as of this encounter Visit Diagnoses [...] documented as of this encounter Care Teams Scale Clerk Relationship Specialty Start Date End Date Marija Edgar APRN GANG MOWER OPERATOR PCP - General Nurse Practitioner 04/30/20 04/14/23 Esha Grimm PA-C [address] [place] [phone] PCP - General Family Medicine 05/04/23 Lita Oseguera Personal Advocate & Liaison (PAL) 02/28/20 03/27/23 Marija Edgar APRN GANG MOWER OPERATOR Assigned PCP 06/08/20 04/29/23 Keisha Dotson MD [address] [place], [place] 047405 Assigned Neuroscience Provider 06/04/20 04/01/23 Diana Desir, [facility] [address] [place], [place] [phone] Pharmacist Pharmacist 04/17/21 Rain Galaviz PA-C [address] [place] [address] [address] [place] [address] Physician Bank Appraiser Dermatology 04/28/21 Tavia Wyatt MD [address] [place] [address] [address] Lara [place] [address] Dermatology 07/14/21 Erica Farrell APRN GANG MOWER OPERATOR [address] [place] [address] Nurse Practitioner Cardiovascular Disease 09/09/21 Rich Barrett MD [address] [place] 250545 Physician Ophthalmology 01/21/22 Neil Kent MD 500 [place] [address] Dermatology 02/24/22 Roney Story DPM [address] [facility] [address] [place], [place] 508417 Assigned Musculoskeletal Provider 03/20/22 08/13/22 Diana Desir, [facility] [address] [place], [place] 079646 Assigned MTM Pharmacist 04/07/22 Jelena David [address] [facility] [place] [address] Assigned Surgical Provider 05/08/22 10/08/22 Livan Sharif MD [address] [address] [place] 256605 Cardiovascular Disease 05/14/22 Livan Sharif MD [address] [place] [address] [place] 235075 Assigned Heart and Vascular Provider 06/12/22 07/23/22 Catherine Cm MD [address] [facility]00 [place] 545415 Cardiovascular Disease 07/21/22 Valery Veronica PA-C [address] [place] [address] 557645 Physician Bank Appraiser Dermatology 07/21/22 Catherine Cm MD [address] [place] [phone] [place] [phone] Assigned Heart and Vascular Provider 07/24/22 11/05/22 Johnny Murillo MD [address] [place] [address] [id number] Assigned Musculoskeletal Provider 08/14/22 10/08/22 Brea Quinn APRN GANG MOWER OPERATOR [address] [place] [address] 084195 Nurse Practitioner Dermatology 09/21/22 Brea Quinn APRN GANG MOWER OPERATOR [address] [place] [address] [place] [id number] Assigned Surgical Provider 10/09/22 05/01/24 [place] [address] [place] [address] Assigned Musculoskeletal Provider 10/09/22 05/01/24 Livan Sharif MD [address] [address] [place] [address] Assigned Heart and Vascular Provider 11/06/22 11/12/22 Catherine Cm MD [address] [place] [address] [place] [address] Assigned Heart and Vascular Provider 11/13/22 05/27/23 Sydnie Martinez RN Personal Advocate & Liaison (PAL) Family Medicine 03/28/23 07/31/23 Alfonso Renteria MD 5775 [facility] 200 [place] [address] Assigned Neuroscience Provider 04/02/23 09/29/24 Cheng Todd PA-C [address] [place] [address] [id number] Assigned PCP 04/30/23 07/15/23 Radha Lomeli APRN GANG MOWER OPERATOR [address] [place] [address] Assigned Heart and Vascular Provider 05/28/23 11/29/[address] David [address] [facility] [place] [phone] MD Ophthalmology 06/15/23 Pao Joseph, RN Personal Advocate & Liaison (PAL) Nurse 08/01/23 11/07/23 Esha Grimm PA-C [address] [place] [address]920683 Assigned PCP 07/16/23 Valery Veronica PA-C [address] [place] [address] Physician Bank Appraiser Dermatology 09/19/23 Rey Tay MD [address] [place] [address] 067735 Gastroenterology 09/20/23 Rocky Zepeda DO [address] [place] [address] 743875 Physician Gastroenterology 09/20/23 Philip Dumont MD [address] [place] [address] 260495 Physician Ophthalmology 09/22/23 Meredith Carrera PA-C [address] [place] [address] [phone] Assigned Gastroenterology Provider 11/01/23 Neil Kent MD [address] [place] [address] 187390 Dermatology 11/02/23 [place] [address] [place] [address] Neurological Surgery 12/26/23 Audrey Waite PA-C 500 [place] [address] Physician Bank Appraiser Dermatology 02/28/24 Valery Veronica PA-C 019942 [place] [address] Physician Bank Appraiser Dermatology 04/10/24 Herminia Hatch MD [address] [place] [address] [phone] Assigned Rheumatology Provider 07/02/24 Jelena David, SONJA [address] [place] [address] [place] [address] Ophthalmology 08/30/24 [place] [address] [place] [address] Assigned Neuroscience Provider 09/30/24 Maru Man PA-C [address] [place] [address] Physician Bank Appraiser Dermatology 10/03/24 Maru Man PA-C [address] [place] [address] Physician Bank Appraiser Dermatology 10/22/24 Jelena David, SONJA [address] [place] [address] [place] [address] Assigned Surgical Provider 10/31/24 Fabiano Correa, LEATHER STRETCHER [address] [place] [address] Assigned Heart and Vascular Provider 11/30/24 Walter Nowak MD [address] [place] [address] Physician Clinical Cardiac Electrophysiology 03/01/25 Liset Márquez MD [address] [place] [address] sign language instructor 03/13/25 Lauren Coronado, [facility] 9[address] [place], [place] 396165 Pharmacist Pharmacist 04/15/25 documented as of this encounter
--- OUTSIDE RECORDS SUMMARY | 2025-04-27 00:01 | XMS_ITS | Encounter Summary ---
Author Organization [facility] Address [address] [place] [address] Care Team Providers Care Fly Rail Operator Name Role Phone Diana Desir [facility] Unavailable Rain GalavizC Unavailable Tavia Wyatt MD Unavailable [phone] Erica Farrell APRN GOLD STAMPER Unavailable Rich Barrett MD Unavailable [phone] Neil Kent MD Unavailable ThangKendrickDiana Stanislav [facility] Unavailable Livan Sharif MD Unavailable Catherine Cm MD Unavailable + Valery Veronica-C Unavailable Brea Quinn APRN GOLD STAMPER Unavailable Esha Grimm PA-C Primary Care Provider [phone] Jelena David OD Unavailable Esha Grimm PA-C Unavailable [phone] Valery Veronica PA-C Unavailable Rey Tay MD Unavailable Duane Rocky Unavailable Philip Dumont MD Unavailable Meredith Carrera PA-C Unavailable [phone] Neil Kent MD Unavailable Juan Pablo Emmanuel MD Unavailable Audrey Waite PA-C Unavailable Valery Veronica PA-C Unavailable Herminia Hatch MD Unavailable Jelena David OD Unavailable Juan Pablo Emmanuel MD Unavailable Maru Man PA-C Unavailable [phone] Maru Man PA-C Unavailable Jelena David OD Unavailable Fabiano Correa NP Unavailable [phone] Walter Nowak MD Unavailable Liset Márquez MD Unavailable Lauren Coronado [facility] Unavailable [phone] Encounter Details Date Type Department Care Team (Late st Contact Info) Description 01/30/2025 MyC Medical Advice [address] [address] Erica David, JOSE ALBERTO Social [...] PHQ-2 Score 1 10/24/2024 [facility]ational Stress [...] exercise at this level? 20 min 05/07/2024 Vaughn Depression Scale Answer Date Recorded Vaughn Depression Score 5 01/14/2021 Last EPDS Self [...] PM CDT Legal Sex Female 4:13 AM NUCLEAR WEAPONS SPECIALIST Gender Identity Female 03/02/2021 5:45 PM CDT Sexual Orientation Straight 02/28/2020 12 :51 AM CDT documented as of this encounter Plan of Treatment Upcoming Encounters Date Type Department Care Team (Late st Contact Info) Description 04/30/2025 10:30 AM CDT Office Visit [facility] [address], [address] [place] [phone] Liset Márquez MD [address] [facility] 300 [place] [address] 05/30/2025 2:45 PM NUCLEAR WEAPONS SPECIALIST Office Visit [facility] Heart [facility] [address] [facility] [address] [place] [phone] Fabiano Correa NP [address] [place] 485795 Walter Nowak MD [address] [place] 145025 08/07/2025 8:15 AM NUCLEAR WEAPONS SPECIALIST Office Visit [facility] Heart [facility] [address] [facility] [address] [place] [phone] Lucien Grimes MD [address] [facility]00 [place] 530305 08/21/2025 9:00 AM NUCLEAR WEAPONS SPECIALIST Office Visit [facility] [address] [phone] Neil Kent MD [address] [place] [address] [phone] 10/09/2025 10:45 AM CDT Virtual Visit [facility] Gastroenterology [address] 4th [place] [phone] Meredith Carrera PA-C [address] [place] [address] [phone] documented as of this encounter Visit Diagnoses Not on filedocumented in this encounter Additional Health Concerns Assessment Noted Time PHQ-9 Depression Total Score: 5 10/25/19 25 10:38 AM CDT documented as of this encounter Care Teams Fly Rail Operator Relationship Specialty Start Date End Date Esha Grimm PA-C [address] [place] [phone] PCP - General Family Medicine 05/04/23 Diana Desir, [facility] [address] [place] [address] Pharmacist Pharmacist 04/17/21 Rain Galaviz PA-C [address] [place] [address] [address] [place] [address] Physician Audit Analyst Dermatology 04/28/21 Tavia Wyatt MD [address] [place] [address] [place] [address] Dermatology 07/14/21 Erica Farrell APRN GOLD STAMPER [address] [place] [address] Nurse Practitioner Cardiovascular Disease 09/09/21 Rich Barrett MD [address] [place] [address] Physician Ophthalmology 01/21/22 Neil Kent MD 500 [place], [place] 471015 Dermatology 02/24/22 Diana Desir, [facility] [address] [place] [address] Assigned MTM Pharmacist 04/07/22 Livan Sharif MD [address] [facility] [address] [place] 900545 Cardiovascular Disease 05/14/22 Catherine Cm MD 6405 [facility] [address] [place], [place] 0647[address] Cardiovascular Disease 07/21/22 Valery Veronica, PA-C [address] [place] [address] 795655 Physician Audit Analyst Dermatology 07/21/22 Brea Quinn APRN GOLD STAMPER [address] [place] [address] 370455 Nurse Practitioner Dermatology 09/21/22 Jelena David OD [address] [facility] [address] [place] [phone] Ophthalmology 06/15/23 Esha Grimm PA-C [address] [place] [phone] Assigned PCP 07/16/23 Valery Veronica, PA-C [address] [place] [address] Physician Audit Analyst Dermatology 09/19/23 Rey Tay MD [address] [place] [address] Gastroenterology 09/20/23 Rocky Zepeda DO [address] [place] [address] Physician Gastroenterology 09/20/23 Philip Dumont MD 516 [place] [address] Physician Ophthalmology 09/22/23 Meredith Carrera PA-C [address] [place] [address] Assigned Gastroenterology Provider 11/01/23 Neil Kent MD [address] [address] Dermatology 11/02/23 [place] [address] [place] [address] [phone] Neurological Surgery 12/26/23 Audrey Waite PA-C [address] [place] [address] Physician Audit Analyst Dermatology 02/28/24 Valery Veronica PA-C 9[address]287 [address] [place] [address] Physician Audit Analyst Dermatology 04/10/24 Herminia Hatch MD [address] [place] [address] [id number] Assigned Rheumatology Provider 07/02/24 Jelena David OD [address] [place] [address] [place] [address] Ophthalmology 08/30/24 [place] [address] [place] [id number] Assigned Neuroscience Provider 09/30/24 Maru Man PA-C [address] [place] [address] Physician Audit Analyst Dermatology 10/03/24 Maru Man PA-C [address] [place] [address] Physician Audit Analyst Dermatology 10/22/24 [place]ena David OD [address] [facility] [place] [address] Assigned Surgical Provider 10/31/24 Fabiano Correa NP 6405 [facility] [place] [phone] Assigned Heart and Vascular Provider 11/30/24 Walter Nowak MD [address] [place] 596135 Physician Clinical Cardiac Electrophysiology 03/01/25 Liset Márquez MD [address] [address] concrete vibrator operator 03/13/25 Lauren Coronado, [facility] 909 [place], [place] 815125 Pharmacist Pharmacist 04/15/25 documented as of this encounter
--- OUTSIDE RECORDS SUMMARY | 2025-04-27 00:02 | XMS_ITS | Encounter Summary ---
Author Organization [place] Address [address] [place] [address] Care Team Providers Care Irrigation Technician Name Role Phone Diana Desir [facility] Unavailable Rain GalavizC Unavailable Tavia Wyatt MD Unavailable [phone] Erica Farrell APRN MID LEVEL BUSINESS ANALYST Unavailable Rich Barrett MD Unavailable [phone] Neil Kent MD Unavailable ThangKendrickDiana Stanislav [facility] Unavailable Livan Sharif MD Unavailable Catherine Cm MD Unavailable + Valery Veronica-C Unavailable Brea Quinn APRN MID LEVEL BUSINESS ANALYST Unavailable [phone] Esha Grimm PA-C Primary Care Provider Jelena David OD Unavailable Esha Grimm PA-C Unavailable [phone] Valery Veronica PA-C Unavailable Rey Tay MD Unavailable DuaneRocky Unavailable Philip Dumont MD Unavailable Meredith Carrera PA-C Unavailable Neil Kent MD Unavailable Juan Pablo Emmanuel MD Unavailable [phone] Audrey Waite PA-C Unavailable Valery Veronica PA-C Unavailable Herminia Hatch MD Unavailable Jelena David OD Unavailable [phone] Juan Pablo Emmanuel MD Unavailable Maru ManC Unavailable Maru Man-C Unavailable Jelena David OD Unavailable Fabiano Correa NP Unavailable Walter Nowak MD Unavailable Liset Márquez MD Unavailable Encounter Details Date Type Department Care Team (Late st Contact Info) Description 01/18/2025 Results Follow-Up [employer] [address] [place] [address] Esha Grimm PA-C [address] [place] [address] Subj: Message about your results Social [...] Score 1 10/24/2024 [facility] - Occupational Stress Questionnaire Answer [...] exercise at this level? 20 min 05/07/2024 [place] Depression Scale Answer Date Recorded [place] Depression Score 5 01/14/2021 Last EPDS Self [...] CDT Legal Sex Female 4:13 AM CAN STACKER Gender Identity Female 03/02/2021 5:45 PM CDT Sexual Orientation Straight 02/28/2020 12 :51 AM CDT documented as of this encounter Plan of Treatment Upcoming Encounters Date Type Department Care Team (Late st Contact Info) Description 04/30/2025 10:30 AM CDT Office Visit [facility] [address], [address] [place] [address] Liset Márquez MD [address] [place] [address] 05/30/2025 2:45 PM CAN STACKER Office Visit [facility] 6405 [facility] [address] [place] [phone] Fabiano Correa NP 6405 [facility] [place] 614[address] Walter Nowak MD 6405 [place], [place] [address] 08/07/2025 8:15 AM CAN STACKER Office Visit [facility] 6405 [facility] [address] [place] [phone] Lucien Grimes MD [address] [id number] 08/21/2025 9:00 AM CAN STACKER Office Visit [address] [address] Neil Kent MD [address] [place] [address] 282035 10/09/2025 10:45 AM CDT Virtual Visit [facility] [address] 4th [place] [phone] Meredith Carrera PA-C [address] [place] [address] documented as of this encounter Visit Diagnoses Not on filedocumented in this encounter Additional Health Concerns Assessment Noted Time PHQ-9 Depression Total Score: 5 10/25/19 25 10:38 AM CDT documented as of this encounter Care Teams Irrigation Technician Relationship Specialty Start Date End Date Esha Grimm PA-C [address] [facility] [place] [address] PCP - General Family Medicine 05/04/23 Diana Desir [facility] [address] [place] [address] Pharmacist Pharmacist 04/17/21 Rain Galaviz PA-C [address] [place] [address] [address] [place] [address] Physician Service Aide Dermatology 04/28/21 Tavia Wyatt MD [address] [place] [address] DR [place] [address] Dermatology 07/14/21 Erica Farrell APRN MID LEVEL BUSINESS ANALYST [address] [place], [place] 687815 Nurse Practitioner Cardiovascular Disease 09/09/21 Rich Barrett MD [address] [place], [place] 560175 Physician Ophthalmology 01/21/22 Neil Kent MD 500 [place] [address] Dermatology 02/24/22 Diana Desir, [facility] [address] [place] [address] Assigned MTM Pharmacist 04/07/22 Livan Sharif MD [address] [place] [address] Cardiovascular Disease 05/14/22 Catherine Cm MD [address] [place] 7290200 [place] [address] Cardiovascular Disease 07/21/22 Valery Veronica PA-C [address] [place] [address] Physician Service Aide Dermatology 07/21/22 Brea Quinn APRN MID LEVEL BUSINESS ANALYST [address] [place] [address] 192465 Nurse Practitioner Dermatology 09/21/22 Jelena David OD [address] [place] [address] [place] [address] MD Ophthalmology 06/15/23 Esha Grimm PA-C [address] [place] [address] Assigned PCP 07/16/23 Valery Veronica PA-C [address] [place] [address] Physician Service Aide Dermatology 09/19/23 Rey Tay MD [address] [place] [address] 373675 Gastroenterology 09/20/23 Rocky Zepeda DO [address] [place] [address] 248365 Physician Gastroenterology 09/20/23 Philip Dumont MD 516 [place] [address] Physician Ophthalmology 09/22/23 Meredith Carrera PA-C [address] [place] [address] Assigned Gastroenterology Provider 11/01/23 Neil Kent MD [address] [address] MD Dermatology 11/02/23 [place] [address] [address] [facility] [place] [place] [address] Neurological Surgery 12/26/23 Audrey Waite PA-C 500 [place], [place] 302235 Physician Service Aide Dermatology 02/28/24 Valery Veronica PA-C 753911 [place], [place] [address] Physician Service Aide Dermatology 04/10/24 Herminia Hatch MD [facility] [place], [place] 47377125 Assigned Rheumatology Provider 07/02/24 [place] [address] [place] [address] [place] [address] Ophthalmology 08/30/24 [place] [address] [place] [address] Assigned Neuroscience Provider 09/30/24 Maru Man PA-C [address] [place] [address] Physician Service Aide Dermatology 10/03/24 Maru Man PA-C [address] [place] [address] Physician Service Aide Dermatology 10/22/24 Jelena David OD [address] [facility] [place] [address] Assigned Surgical Provider 10/31/24 Fabiano Correa NP [address] [place] [address] Assigned Heart and Vascular Provider 11/30/24 Walter Nowak MD [address] [place] [address] Physician Clinical Cardiac Electrophysiology 03/01/25 Liset Márquez MD [address] [place] [address] S [facility] 300 [place] [address] railcar foreman 03/13/25 documented as of this encounter
--- OUTSIDE RECORDS SUMMARY | 2025-04-27 00:02 | XMS_ITS | Encounter Summary ---
Author Organization [place] Address [address] [place] [address] Care Team Providers Care Training Designer Name Role Phone Diana Desir [facility] Unavailable Rain GalavizC Unavailable Tavia Wyatt MD Unavailable [phone] Erica Farrell APRN UROLOGY TEACHER Unavailable Rich Barrett MD Unavailable [phone] Neil Kent MD Unavailable ThangKendrickDiana Stanislav [facility] Unavailable Livan Sharif MD Unavailable Catherine Cm MD Unavailable + Valery Veronica-C Unavailable Brea Quinn APRN UROLOGY TEACHER Unavailable Esha Grimm PA-C Primary Care Provider Jelena David OD Unavailable Esha Grimm PA-C Unavailable [phone] Valery Veronica PA-C Unavailable Rey Tay MD Unavailable DuaneRocky Unavailable Philip Dumont MD Unavailable Meredith Carrera PA-C Unavailable Neil Kent MD Unavailable Juan Pablo Emmanuel MD Unavailable Audrey Waite PA-C Unavailable Valery Veronica PA-C Unavailable Herminia Hatch MD Unavailable Jelena David OD Unavailable Juan Pablo Emmanuel MD Unavailable [phone] Maru Man PA-C Unavailable Maru Man PA-C Unavailable Jelena David OD Unavailable [phone] Fabiano Correa NP Unavailable [phone] Walter Nowak MD Unavailable Liset Márquez MD Unavailable Lauren Coronado [facility] Unavailable [phone] Encounter Details Date Type Department Care Team (Late st Contact Info) Description 02/04/2025 MyC Medical Advice [facility] Heart [address] [address] Carley Myles, RN Social History [...] 10/24/2024 [facility] - Occupational Stress Questionnaire Answer [...] exercise at this level? 20 min 05/07/2024 [place] Depression Scale Answer Date Recorded [place] Depression Score 5 01/14/2021 Last EPDS Self [...] CDT Legal Sex Female 4:13 AM DATA MINING ANALYST Gender Identity Female 03/02/2021 5:45 PM CDT Sexual Orientation Straight 02/28/2020 12 :51 AM CDT documented as of this encounter Plan of Treatment Upcoming Encounters Date Type Department Care Team (Late st Contact Info) Description 04/30/2025 10:30 AM CDT Office Visit [facility] [address], [address] [place] [phone] Liset Márquez MD [address] [facility] 300 [place] [address] 05/30/2025 2:45 PM DATA MINING ANALYST Office Visit [facility] 6405 [facility] [address] [place] [phone] Fabiano Correa NP [address] [place] [address] Walter Nowak MD [address] [place] 456545 08/07/2025 8:15 AM DATA MINING ANALYST Office Visit [facility] Heart [facility] 6405 [facility] [address] [place] [phone] Lucien Grimes MD [address] [facility]00 [place] 776795 08/21/2025 9:00 AM DATA MINING ANALYST Office Visit [facility] [address] [phone] Neil Kent MD [address] [place] [address] 027535 10/09/2025 10:45 AM CDT Virtual Visit [facility] Gastroenterology [address] 4th [place] [phone] Meredith Carrera PA-C [address] [place] [address] 086405 documented as of this encounter Visit Diagnoses Not on filedocumented in this encounter Additional Health Concerns Assessment Noted Time PHQ-9 Depression Total Score: 5 10/25/19 25 10:38 AM CDT documented as of this encounter Care Teams Training Designer Relationship Specialty Start Date End Date Esha Grimm PA-C [address] [place] [phone] PCP - General Family Medicine 05/04/23 Diana Desir, [facility] [address] [place] [address] Pharmacist Pharmacist 04/17/21 Rain Galaviz PA-C [address] [place] [address] [address] [place] [address] Physician Salesperson [employer] Dermatology 04/28/21 Tavia Wyatt MD [address] [place] [address] [place] [address] Dermatology 07/14/21 Erica Farrell APRN UROLOGY TEACHER [address] [place] [address] Nurse Practitioner Cardiovascular Disease 09/09/21 Rich Barrett MD [address] [place] [address] Physician Ophthalmology 01/21/22 Neil Kent MD 500 [place], [place] 606415 Dermatology 02/24/22 Diana Desir, [facility] 303 [place] [address] Assigned MTM Pharmacist 04/07/22 Livan Sharif MD [address] [facility] [address] [place] 231555 Cardiovascular Disease 05/14/22 Catherine Cm MD 6405 [facility] [address] [place], [place] 799995 Cardiovascular Disease 07/21/22 Valery Veronica, PA-C [address] [place] [address] 641755 Physician Salesperson [employer] Dermatology 07/21/22 Brea Quinn APRN UROLOGY TEACHER [address] [place] [address] 580125 Nurse Practitioner Dermatology 09/21/22 Jelena David OD [address] [facility] [address] [place] [id number] Ophthalmology 06/15/23 Esha Grimm PA-C [address] [place] [phone] Assigned PCP 07/16/23 Valery Veronica, PA-C [address] [place] [address] Physician Salesperson [employer] Dermatology 09/19/23 Rey Tay MD [address] [place] [address] Gastroenterology 09/20/23 Rocky Zepeda DO [address] [place] [address] Physician Gastroenterology 09/20/23 Philip Dumont MD 516 [place] [address] Physician Ophthalmology 09/22/23 Mereidth Carrera PA-C [address] [place] [address] Assigned Gastroenterology Provider 11/01/23 Neil Kent MD [address] [address] Dermatology 11/02/23 [place] [address] RAZO [address] [place] [address] 597517 Neurological Surgery 12/26/23 Audrey Waite PA-C [address] [place] [address] Physician Salesperson [employer] Dermatology 02/28/24 Valery Veronica PA-C [address]35 [address] [place] [address] Physician Salesperson [employer] Dermatology 04/10/24 Herminia Hatch MD [address] [place] [address] [id number] Assigned Rheumatology Provider 07/02/24 Jelena David OD [address] [place] [address] [place] [address] Ophthalmology 08/30/24 [place] [address] [place] 252317 Assigned Neuroscience Provider 09/30/24 Maru Man PA-C [address] [place] [address] Physician Salesperson [employer] Dermatology 10/03/24 Maru Man PA-C [address] [place] [address] Physician Salesperson [employer] Dermatology 10/22/24 Jelena David OD [address] [facility] [place] [address] Assigned Surgical Provider 10/31/24 Fabiano Correa NP 6405 [facility] [place] 085065 Assigned Heart and Vascular Provider 11/30/24 Walter Nowak MD [address] [place] 351875 Physician Clinical Cardiac Electrophysiology 03/01/25 Liset Márquez MD [address] [address] mobile crane operator 03/13/25 Lauren Coronado, [facility] 909 [place], [place] 287585 Pharmacist Pharmacist 04/15/25 documented as of this encounter
--- OUTSIDE RECORDS SUMMARY | 2025-04-27 00:02 | XMS_ITS | Encounter Summary ---
Author Organization [place] Address [address] [place] [address] Care Team Providers Care Telemarketer Supervisor Name Role Phone Diana Desir [facility] Unavailable Rain GalavizC Unavailable Tavia Wyatt MD Unavailable [phone] Erica Farrell APRN [employer] Unavailable Rich Barrett MD Unavailable [phone] Neil Kent MD Unavailable ThangKendrickDiana Stanislav [facility] Unavailable Livan Sharif MD Unavailable Catherine Cm MD Unavailable + Valery Veronica-C Unavailable Brea Quinn APRN [employer] AIR[employer] Unavailable Esha Grimm PA-C Primary Care Provider [phone] Jelena David OD Unavailable Esha Grimm PA-C Unavailable [phone] Valery Veronica PA-C Unavailable Rey Tay MD Unavailable DuaneRocky Unavailable Philip Dumont MD Unavailable Meredith Carrera PA-C Unavailable Neil Kent MD Unavailable Juan Pablo Emmanuel MD Unavailable [phone] Audrey Waite PA-C Unavailable Valery Veronica PA-C Unavailable [phone] Herminia Hatch MD Unavailable Jelena David OD Unavailable [phone] Juan Pablo Emmanuel MD Unavailable [phone] Maru Man PA-C Unavailable Maru Man PA-C Unavailable Jelena David OD Unavailable Fabiano Correa NP Unavailable Walter Nowak MD Unavailable Liset Márquez MD Unavailable Lauren Coronado [facility] Unavailable Encounter Details Date Type Department Care Team (Late st Contact Info) Description 01/16/2025 MyC Medical Advice [facility] [address], [address] [place] [address] [place] [address] [place] [address] Social History Tobacco Use Types Packs/Day [...] often do you attend [facility] or church services? 1 to 4 [...] Answer Date Recorded PHQ-2 Score 1 10/24/2024 [facility] - Occupational Stress Questionnaire Answer [...] exercise at this level? 20 min 05/07/2024 [place] Depression Scale Answer Date Recorded [place] Depression Score 5 01/14/2021 Last EPDS Self [...] CDT Legal Sex Female 4:13 AM OIL HEATER OPERATOR Gender Identity Female 03/02/2021 5:45 PM CDT Sexual Orientation Straight 02/28/2020 12 :51 AM CDT documented as of this encounter Plan of Treatment Upcoming Encounters Date Type Department Care Team (Late st Contact Info) Description 04/30/2025 10:30 AM CDT Office Visit [facility] [place] [address], [address] [place] [address] Liset Márquez MD [address] [place], [place] 220204 05/30/2025 2:45 PM OIL HEATER OPERATOR Office Visit [facility] 6405 [facility] [address] [place] [phone] Fabiano Correa, OFFICE ASSISTANT RECEPTIONIST 6405 [place], [place] 254965 Walter Nowak MD 0033 [place], [place] 245805 08/07/2025 8:15 AM OIL HEATER OPERATOR Office Visit [facility] 6405 [facility] [address] [place] [phone] Lucien Grimes MD [address] [facility] [address] [place], [place] 232335 08/21/2025 9:00 AM OIL HEATER OPERATOR Office Visit [facility] [address] [phone] Neil Kent MD 500 [place], [place] [phone] 10/09/2025 10:45 AM CDT Virtual Visit [facility] [address] 4th [place] [phone] Meredith Carrera PA-Romana [address] [place] [address] documented as of this encounter Visit Diagnoses Not on filedocumented in this encounter Additional Health Concerns Assessment Noted Time PHQ-9 Depression Total Score: 5 10/25/19 10:38 AM CDT documented as of this encounter Care Teams Telemarketer Supervisor Relationship Specialty Start Date End Date Esha Grimm PA-C [address] [place] [address] PCP - General Family Medicine 05/04/23 Diana Desir, [facility] [address] [place] [address] Pharmacist Pharmacist 04/17/21 Rain Galaviz PA-C [address] [place] [address] [address] [facility] [address] Physician Maintenance Custodian Dermatology 04/28/21 Tavia Wyatt MD [address] [place] [address] [address] [facility] [address] Dermatology 07/14/21 Erica Farrell APRN [employer] [address] [place], [place] 9[address] Nurse Practitioner Cardiovascular Disease 09/09/21 Rich Barrett MD [address] [place] [address] Physician Ophthalmology 01/21/22 Neil Kent MD 500 [place], [place] 945505 Dermatology 02/24/22 Diana Desir, [facility] 3033 [place] [address] Assigned MTM Pharmacist 04/07/22 Livan Sharif MD [address] [place] [address] Cardiovascular Disease 05/14/22 Catherine Cm MD [address] [place] 191075 Cardiovascular Disease 07/21/22 Valery Veronica, PA-C [address] [place] [address] 920815 Physician Maintenance Custodian Dermatology 07/21/22 Brea Quinn APRN [employer] AIR[employer] [address] [place] [address] Nurse Practitioner Dermatology 09/21/22 Jelena David OD [address] [place] [address] [place] [address] Ophthalmology 06/15/23 Esha Grimm PA-C [address] [place] [address]609883 Assigned PCP 07/16/23 Valery Veronica, PA-C [address] [place] [address] 445325 Physician Maintenance Custodian Dermatology 09/19/23 Rey Tay MD [address] [place] [address] 139065 Gastroenterology 09/20/23 Rocky Zepeda DO [address] [place] [address] Physician Gastroenterology 09/20/23 Philip Dumont MD 6 [place] [address] Physician Ophthalmology 09/22/23 Meredith Carrera PA-C [address] [place] [address] Assigned Gastroenterology Provider 11/01/23 Neil Kent MD [address] [place] [address] MD Dermatology 11/02/23 [place] [address] [facility] [place] [address] Neurological Surgery 12/26/23 Audrey Waite PA-C [address] [place] [address] Physician Maintenance Custodian Dermatology 02/28/24 Valery Veronica PA-C 392609 [address] [place] [address] Physician Maintenance Custodian Dermatology 04/10/24 Herminia Hatch MD [address] [place] [address] [id number] Assigned Rheumatology Provider 07/02/24 Jelena David OD [address] [place] [address] [place] [address] Ophthalmology 08/30/24 [place] [address] [facility] 300 [place] [address] Assigned Neuroscience Provider 09/30/24 Maru Man PA-C [address] [place] [address] Physician Maintenance Custodian Dermatology 10/03/24 Maru Man PA-C [address] [place] [address] 897300 Physician Maintenance Custodian Dermatology 10/22/24 Jelena David OD [address] [facility] [place] [address] Assigned Surgical Provider 10/31/24 Fabiano Correa, BRYCE [address] [place] 489975 Assigned Heart and Vascular Provider 11/30/24 Walter Nowak MD [address] [place] [address] Physician Clinical Cardiac Electrophysiology 03/01/25 Liset Márquez MD [address] [facility] 300 [place] [address] land economist 03/13/25 Lauren Coronado, [facility] 909 [place], [place] 540715 Pharmacist Pharmacist 04/15/25 documented as of this encounter
--- OUTSIDE RECORDS SUMMARY | 2025-04-27 00:02 | XMS_ITS | Encounter Summary ---
Author Organization [place] Address [address] [place] [address] Care Team Providers Care President Mortgage Company Name Role Phone Diana Desir [facility] Unavailable Rain GalavizC Unavailable Tavia Wyatt MD Unavailable [phone] Erica Farrell APRN DATA MINING ANALYST Unavailable Rich Barrett MD Unavailable [phone] Neil Kent MD Unavailable ThangKendrickDiana Stanislav [facility] Unavailable [phone] Livan Sharif MD Unavailable Catherine Cm MD Unavailable + Valery Veronica-C Unavailable Brea Quinn APRN DATA MINING ANALYST Unavailable [phone] Esha Grimm PA-C Primary Care Provider [phone] Jelena David OD Unavailable [phone] Esha Grimm PA-C Unavailable [phone] Valery Veronica PA-C Unavailable [phone] Rey Tay MD Unavailable DuaneRocky Unavailable Philip Dumont MD Unavailable Meredith Carrera PA-C Unavailable Neil Kent MD Unavailable Juan Pablo Emmanuel MD Unavailable Audrey Waite PA-C Unavailable Valery Veronica PA-C Unavailable Herminia Hatch MD Unavailable Jelena David OD Unavailable Juan Pablo Emmanuel MD Unavailable Maru Man PA-C Unavailable Maru Man PA-C Unavailable Jelena David OD Unavailable [phone] Fabiano Correa NP Unavailable [phone] Walter Nowak MD Unavailable Liset Márquez MD Unavailable Encounter Details Date Type Department Care Team (Late st Contact Info) Description 02/04/2025 Results Follow-Up [facility] Heart [address] [place] [address] Fabiano Correa, DOCK LOADER [address] [place] [address] Social History Tobacco Use Types Packs/Day [...] exercise at this level? 20 min 05/07/2024 [place] Depression Scale Answer Date Recorded Rector Depression Score 5 01/14/2021 Last EPDS Self [...] PM CDT Legal Sex Female 4:13 AM POLICE DETECTIVE Gender Identity Female 03/02/2021 5:45 PM CDT Sexual Orientation Straight 02/28/2020 12 :51 AM CDT documented as of this encounter Plan of Treatment Upcoming Encounters Date Type Department Care Team (Late st Contact Info) Description 04/30/2025 10:30 AM CDT Office Visit [facility] [address], [address] [place] [phone] Liset Márquez MD [address] [place] [address] 05/30/2025 2:45 PM POLICE DETECTIVE Office Visit [facility] [address] [place] [address] [place] [phone] Fabiano Correa NP 6405 [place], [place] 695705 Walter Nowak MD 6408 [place], [place] 532805 08/07/2025 8:15 AM POLICE DETECTIVE Office Visit [facility] [address] [place] [phone] Lucien Grimes MD [address] 718875 08/21/2025 9:00 AM POLICE DETECTIVE Office Visit [facility] [address] [address] Neil Kent MD [address] [place] [address] 875975 10/09/2025 10:45 AM CDT Virtual Visit [facility] [address] 4th [place] [phone] Meredith Carrera PA-C [address] [place] [address] 078775 documented as of this encounter Visit Diagnoses Not on filedocumented in this encounter Additional Health Concerns Assessment Noted Time PHQ-9 Depression Total Score: 5 10/25/19 25 10:38 AM CDT documented as of this encounter Care Teams President Mortgage Company Relationship Specialty Start Date End Date Esha Grimm PA-C [address] [place] [phone] PCP - General Family Medicine 05/04/23 Diana Desir, [facility] [address] [place] [address] Pharmacist Pharmacist 04/17/21 Rain Galaviz PA-C [address] [place] [address] [address] [facility] [address] Physician Metal Alloy Scientist Dermatology 04/28/21 Tavia Wyatt MD [address] [place] [address] [address] ENMA GARCIA [address] Dermatology 07/14/21 Erica Farrell APRN DATA MINING ANALYST [address] [place] [address] Nurse Practitioner Cardiovascular Disease 09/09/21 Rich Barrett MD [address] [place] [address] Physician Ophthalmology 01/21/22 Neil Kent MD 500 [place] [address] Dermatology 02/24/22 Diana Desir [facility] [address] [place] [address] Assigned MTM Pharmacist 04/07/22 Livan Sharif MD [address] [place] [address] Cardiovascular Disease 05/14/22 Catherine Cm MD [address] [address] Cardiovascular Disease 07/21/22 Valery Veronica PA-C [address] [place] [address] Physician Metal Alloy Scientist Dermatology 07/21/22 Brea Quinn APRN DATA MINING ANALYST [address] [place] [address] 777605 Nurse Practitioner Dermatology 09/21/22 Jelena David OD [address] [place] [address] [place] [address] MD Ophthalmology 06/15/23 Esha Grimm PA-C [address] [place] [address]-507883 Assigned PCP 07/16/23 Valery Veronica PA-C [address] [place] [address] Physician Metal Alloy Scientist Dermatology 09/19/23 eRy Tay MD [address] [place] [address] 943835 Gastroenterology 09/20/23 Rocky Zepeda DO [address] [place] [address] 526595 Physician Gastroenterology 09/20/23 Philip Dumont MD 516 [place] [address] Physician Ophthalmology 09/22/23 Meredith Carrera PA-C [address] [place] [address] Assigned Gastroenterology Provider 11/01/23 Neil Kent MD [address] 015800 MD Dermatology 11/02/23 [place] [address] [place], [place] 631487 Neurological Surgery 12/26/23 Audrey Waite PA-C [address] [place] [address] Physician Metal Alloy Scientist Dermatology 02/28/24 Valery Veronica PA-C [address]778 [address] [place] [address] Physician Metal Alloy Scientist Dermatology 04/10/24 Herminia Hatch MD [address] [place] [address] [phone] Assigned Rheumatology Provider 07/02/24 Jelena David OD [address] [place] [address] [place] K[place] [address] Ophthalmology 08/30/24 [place] [address] [place] [address] Assigned Neuroscience Provider 09/30/24 Maru Man PA-C [address] [place] [address] Physician Metal Alloy Scientist Dermatology 10/03/24 Maru Man PA-C [address] [place] [address] Physician Metal Alloy Scientist Dermatology 10/22/24 Jelena David OD [address] [place] [address] Assigned Surgical Provider 10/31/24 Fabiano Correa NP [address] [place] [address] Assigned Heart and Vascular Provider 11/30/24 Walter Nowak MD [address] [place] [address] Physician Clinical Cardiac Electrophysiology 03/01/25 Liset Márquez MD 606 [facility] LISETH Ward [facility] 300 [place] [address] barn manager 03/13/25 documented as of this encounter
--- OUTSIDE RECORDS SUMMARY | 2025-04-27 00:02 | XMS_ITS | Encounter Summary ---
Author Organization [place] Address [address] [place] [address] Care Team Providers Care Beam Carrier Hauler Pusher Name Role Phone Diana Desir [facility] Unavailable [phone] Rain Galaviz PA-C Unavailable Tavia Wyatt MD Unavailable [phone] Erica Farrell APRN BIOLOGY TUTOR Unavailable Rich Barrett MD Unavailable [phone] Neil Kent MD Unavailable Diana Desir [facility] Unavailable Livan Sharif MD Unavailable Catherine Cm MD Unavailable + Valery Veronica PA-C Unavailable Brea Quinn INSTRUMENTATION SUPERVISOR BIOLOGY TUTOR Unavailable [phone] Brea Quinn INSTRUMENTATION SUPERVISOR BIOLOGY TUTOR Unavailable Jose Francisco Johnson MD Unavailable Alfonso Renteria MD Unavailable [phone] Esha Grimm PA-C Primary Care Provider [phone] Lomeli, Radha E INSTRUMENTATION SUPERVISOR BIOLOGY TUTOR Unavailable [phone] Jelena David OD Unavailable [phone] Pao Joseph RN Unavailable Unavailable Esha Grimm Adam PA-C Unavailable [phone] Valery Veronica PA-C Unavailable [phone] Rey Tay MD Unavailable Rocky Zepeda DO Unavailable Philip Dumont MD Unavailable Meredith Carrera PA-C Unavailable Neil Kent MD Unavailable Juan Pablo Emmanuel MD Unavailable Audrey Waite PA-C Unavailable JeremíasValery damon PA-C Unavailable [phone] Herminia Hatch MD Unavailable Jelena David OD Unavailable Juan Pablo Emmanuel MD Unavailable Maru Man PA-C Unavailable Maru Man PA-C Unavailable Jelena David OD Unavailable Fabiano Correa NP Unavailable Walter Nowak MD Unavailable Liset Márquez MD Unavailable Lauren Coronado [facility] Unavailable [phone] Encounter Details Date Type Department Care Team (Late st Contact Info) Description 09/20/2023 [facility] Medical Advice [facility] Gastroenterology Clinic [address]th [place] [address] Jeffery Vieira, RN Social History [...] [facility] - Occupational Stress Questionnaire Answer Date [...] at this level? 30 min 03/10/2023 [facility] Depression Scale Answer Date Recorded [facility] Depression Score 5 01/14/2021 Last EPDS Self [...] CDT Legal Sex Female 4:13 AM STAGE TECHNICIAN Gender Identity Female 03/02/2021 5:45 PM CDT Sexual Orientation Straight 02/28/2020 12 :51 AM CDT documented as of this encounter Plan of Treatment Upcoming Encounters Date Type Department Care Team (Late st Contact Info) Description 04/30/2025 10:30 AM CDT Office Visit [facility] [place] [address], [address] [place] [phone] Liset Márquez MD [address] [facility] 300 [place] [address] 05/30/2025 2:45 PM STAGE TECHNICIAN Office Visit [facility] Heart [facility] [address] [place] [phone] Fabiano Correa, BRYCE 6405 [facility] [place] [place] [address] Walter Nowak MD [address] [facility] [address] [place], [place] [address] 08/07/2025 8:15 AM STAGE TECHNICIAN Office Visit [facility] Heart [facility] [address] [phone] Lucien Grimes MD [address] 906305 08/21/2025 9:00 AM STAGE TECHNICIAN Office Visit [address] [phone] Neil Kent MD [address] [place] [address] [phone] 10/09/2025 10:45 AM CDT Virtual Visit [facility] Gastroenterology [facility] 909 [facility] 4th [place] [phone] Meredith Carrera PAUcheC [address] [place] [address] 731405 documented as of this encounter Visit Diagnoses [...] Depression Total Score: 4 06/20/20 8:40 AM STAGE TECHNICIAN documented as of this encounter Care Teams Beam Carrier Hauler Pusher Relationship Specialty Start Date End Date Esha Grimm PA-C [address] [place] [address] PCP - General Family Medicine 05/04/23 Diana Desir, [facility] 3033 [place], [place] 380746 Pharmacist Pharmacist 04/17/21 Rain Galaviz PA-C [address] [place] [address] ENMA KNUTSON [address] Physician Engineering Drawings Checker Dermatology 04/28/21 Tavia Wyatt MD [address] [place] [address] [place] [address] Dermatology 07/14/21 Erica Farrell APRN BIOLOGY TUTOR [address] 645675 Nurse Practitioner Cardiovascular Disease 09/09/21 Rich Barrett MD [address] [place] 439165 Physician Ophthalmology 01/21/22 Neil Kent MD 500 [place], [place] 433495 Dermatology 02/24/22 Diana Desir, [facility] 3033 [place], [place] 186156 Ass[address] [facility] Pharmacist 04/07/22 Livan Sharif MD [address] [place] 570895 Cardiovascular Disease 05/14/22 Catherine Cm MD [address] [place] 307705 Cardiovascular Disease 07/21/22 Valery Veronica, PA-C 909 [place], [place] 396225 Physician Engineering Drawings Checker Dermatology 07/21/22 Brea Quinn APRN BIOLOGY TUTOR 500 [place], [place] 651475 Nurse Practitioner Dermatology 09/21/22 Brea Quinn APRN BIOLOGY TUTOR [address] [place] [address] [place] 207782 Assigned Surgical Provider 10/09/22 05/01/24 [place] [address] [address] [facility] 300 [place] [address] Assigned Musculoskeletal Provider 10/09/22 05/01/24 Alfonso Renteria MD 5775 [facility] 200 [place], [place] 118996 Assigned Neuroscience Provider 04/02/23 09/29/24 Radha Lomeli APRN BIOLOGY TUTOR [address] [facility] [address] [place] [address] Assigned Heart and Vascular Provider 05/28/23 11/29/24 Jelena David OD [address] [place] [address] Ophthalmology 06/15/23 Pao Joseph, VJ Personal Advocate & Liaison (PAL) Nurse 08/01/23 11/07/23 Esha Grimm PA-C [address] [place] [phone] Assigned PCP 07/16/23 Valery Veronica PA-C [address] [place] [address] 852445 Physician Engineering Drawings Checker Dermatology 09/19/23 Rey Tay MD [address] [place] [address] 875685 Gastroenterology 09/20/23 Rocky Zepeda DO [address] [place] [address] Physician Gastroenterology 09/20/23 Philip Dumont MD [address] [place] [address] Physician Ophthalmology 09/22/23 Meredith Carrera PA-C [address] [place] [address] Assigned Gastroenterology Provider 11/01/23 Neil Kent MD [address] [place] [address] MD Dermatology 11/02/23 [place] [address] [place] [address] Neurological Surgery 12/26/23 Audrey Waite PA-C [address] [place] [address] Physician Engineering Drawings Checker Dermatology 02/28/24 Valery Veronica PA-C 864906 [address] [place] [address] Physician Engineering Drawings Checker Dermatology 04/10/24 Herminia Hatch MD [address] [place] [address] [phone] Assigned Rheumatology Provider 07/02/24 [place] [address] [place] [address] [place] [address] Ophthalmology 08/30/24 [place] [address] [address] [facility] 300 [place] [address] Assigned Neuroscience Provider 09/30/24 Maru Man PA-C [address] [place] [address] Physician Engineering Drawings Checker Dermatology 10/03/24 Maru Man PA-C [address] [place] [address] Physician Engineering Drawings Checker Dermatology 10/22/24 Jelena David OD [address] [place] [address] Assigned Surgical Provider 10/31/24 Fabiano Correa, POWER LINEMAN [address] [place] 206025 Assigned Heart and Vascular Provider 11/30/24 Walter Nowak MD [address] [place] [address] Physician Clinical Cardiac Electrophysiology 03/01/25 Liset Márquez MD [address] [facility] 300 [place] [address] work ticket distributor 03/13/25 Lauren Coronado, [facility] 909 [place], [place] 303535 Pharmacist Pharmacist 04/15/25 documented as of this encounter
--- OUTSIDE RECORDS SUMMARY | 2025-04-27 00:03 | XMS_ITS | Encounter Summary ---
Author Organization [place] Address [address] [place] [address] 527[address] Care Team Providers Care Employee Benefits Administrator Name Role Phone Diana Desir [facility] Unavailable Rain GalavizC Unavailable Tavia Wyatt MD Unavailable [phone] Erica Farrell APRN PARTY COORDINATOR Unavailable Rich Barrett MD Unavailable [phone] Neil Kent MD Unavailable ThangKendrickDiana Stanislav [facility] Unavailable Livan Sharif MD Unavailable Catherine Cm MD Unavailable + Valery Veronica-C Unavailable [phone] Brea Quinn APRN PARTY COORDINATOR Unavailable [phone] Esha Grimm PA-C Primary Care Provider Jelena David OD Unavailable [phone] Esha Grimm PA-C Unavailable [phone] Valery Veronica PA-C Unavailable [phone] Rey Tay MD Unavailable Duane Rocky Unavailable Philip Dumont MD Unavailable Meredith Carrera PA-C Unavailable [phone] Neil Kent MD Unavailable Juan Pablo Emmanuel MD Unavailable Audrey Waite PA-C Unavailable Valery Veronica PA-C Unavailable Herminia Hatch MD Unavailable Jelena David OD Unavailable [phone] Juan Pablo Emmanuel MD Unavailable [phone] Maru Man PA-C Unavailable Maru Man PA-C Unavailable Jelena David OD Unavailable [phone] Fabiano Correa NP Unavailable Walter Nowak MD Unavailable Liset Márquez MD Unavailable Lauren Coronado [facility] Unavailable [phone] Reason for Visit * Reason Onset Date Comments Appointment 01/30/2025 Add-on Monitor Encounter Details Date Type Department Care Team (Late st Contact Info) Description 01/30/2025 Telephone [facility] Heart [address] [place] [address] None Appointment (Add-on Monitor) Social History Tobacco Use Types Packs/Day [...] 10/24/2024 [facility] - Occupational Stress Questionnaire Answer Date Recorded [...] exercise at this level? 20 min 05/07/2024 [place] Depression Scale Answer Date Recorded [place] Depression Score 5 01/14/2021 Last EPDS [...] PM CDT Legal Sex Female 4:13 AM ZIPPER IRONER Gender Identity Female 03/02/2021 5:45 PM CDT Sexual Orientation Straight 02/28/2020 12 :51 AM CDT documented as of this encounter Miscellaneous Notes * Telephone Encounter - Luzma Sue - 01/30/2025 3:43 PM CDT [facility] Phone Message May a detailed message be left on voicemail: yes Reason for Call: Other: This patient has been added on for monitor tomorrow afternoon Action Taken: Other: Cardiology Travel Screening: Not Applicable Thank you! Specialty Access Center Date of Service: documented in this encounter Plan of Treatment Upcoming Encounters Date Type Department Care Team (Late st Contact Info) Description 04/30/2025 10:30 AM CDT Office Visit [facility] [address], [address] [place] [phone] Liset Márquez MD [address] [place] [address] 05/30/2025 2:45 PM ZIPPER IRONER Office Visit [facility] Heart [facility] [address] [phone] Fabiano Correa NP 6405 [place], [place] 841315 Walter Nowak MD 6405 [place], [place] 508235 08/07/2025 8:15 AM ZIPPER IRONER Office Visit [facility] Heart [facility] [address] [phone] Lucien Grimes MD [address] 334[address] 08/21/2025 9:00 AM ZIPPER IRONER Office Visit [facility] [address] [phone] Neil Kent MD 500 [place], [place] [phone] 10/09/2025 10:45 AM CDT Virtual Visit [facility] Gastroenterology [facility] 909 [facility] [address] 4th [place] [address] Meredith Carrera PA-C 909 [place] [address] documented as of this encounter Visit Diagnoses Not on filedocumented in this encounter Additional Health Concerns Assessment Noted Time PHQ-9 Depression Total Score: 5 10/25/19 25 10:38 AM CDT documented as of this encounter Care Teams Employee Benefits Administrator Relationship Specialty Start Date End Date Esha Grimm PA-C [address] [place] [phone] PCP - General Family Medicine 05/04/23 Diana Desir, [facility] 3033 [place] [address] Pharmacist Pharmacist 04/17/21 Rain Galaviz PA-C [address] [place] [address] [address] [place] [address] Physician Timber Incisor Operator Dermatology 04/28/21 Tavia Wyatt MD [address] [place] [address] [address] [place] [address] Dermatology 07/14/21 Erica Farrell APRN PARTY COORDINATOR [address] [place] [address] Nurse Practitioner Cardiovascular Disease 09/09/21 Rich Barrett MD [address] [place] [address] Physician Ophthalmology 01/21/22 Neil Kent MD 500 [place] [address] Dermatology 02/24/22 Diana Desir, [facility] 3033 [place] [address] Assigned [place] Pharmacist 04/07/22 Livan Sharif MD [address] [facility] [address] [place] [address] Cardiovascular Disease 05/14/22 Catherine Cm MD [address] [place], [place] 194865 Cardiovascular Disease 07/21/22 Valery Veronica PA-C [address] [place] [address] 202865 Physician Timber Incisor Operator Dermatology 07/21/22 Brea Quinn APRN PARTY COORDINATOR 500 [place], [place] 116295 Nurse Practitioner Dermatology 09/21/22 Jelena David OD [address] [place] [address] [place] [address] Ophthalmology 06/15/23 Esha Grimm PA-C [address] [place] [phone] Assigned PCP 07/16/23 Valery Veronica PA-C [address] [place] [address] 669585 Physician Timber Incisor Operator Dermatology 09/19/23 Rey Tay MD [address] [place] [address] 956075 MD Gastroenterology 09/20/23 Rocky Zepeda DO [address] [place] [address] 921725 Physician Gastroenterology 09/20/23 Philip Dumont MD [address] [place] [address] 528285 Physician Ophthalmology 09/22/23 Meredith Carrera PA-C [address] [place] [address] 071865 Assigned Gastroenterology Provider 11/01/23 Neil Kent MD [address] 478810 Dermatology 11/02/23 [place] [address] [place] [facility] [[email or web address] [place], [place] 665[address] Neurological Surgery 12/26/23 Audrey Waite PA-C [address] [place] [address] Physician Timber Incisor Operator Dermatology 02/28/24 Valery Veronica PA-C 841554 [place], [place] [address] Physician Timber Incisor Operator Dermatology 04/10/24 Herminia Hatch MD [facility]5 [place], [place] 75983125 Assigned Rheumatology Provider 07/02/24 Jelena David OD [facility]5 [facility] [place] [address] Ophthalmology 08/30/24 [place] [address] [place] [address] Assigned Neuroscience Provider 09/30/24 Maru Man PA-C [address] [place] [address] Physician Timber Incisor Operator Dermatology 10/03/24 Maru Man PA-C [address] [place] [address] Physician Timber Incisor Operator Dermatology 10/22/24 Jelena David OD [facility]5 [facility] [place] [address] Assigned Surgical Provider 10/31/24 Fabiano Correa NP 6405 [place] 302805 Assigned Heart and Vascular Provider 11/30/24 Walter Nowak MD 6405 [place] 618595 Physician Clinical Cardiac Electrophysiology 03/01/25 Liset Márquez MD [address] [address] keying machine operator 03/13/25 Lauren Coronado, [facility] [address] [place] [address] Pharmacist Pharmacist 04/15/25 documented as of this encounter
--- OUTSIDE RECORDS SUMMARY | 2025-04-27 00:03 | XMS_ITS | Encounter Summary ---
Author Organization [facility] Address [address] [place] [address] Care Team Providers Care Environmental Engineering Manager Name Role Phone Lita Oseguera Unavailable Unavailable Marija Edgar APRN SHEET SEWER Primary Care Provider + Marija Edgar APRN SHEET SEWER Unavailable Keisha Dotson MD Unavailable Diana Desir [facility] Unavailable [phone] Rain Galaviz PA-C Unavailable Tavia Wyatt MD Unavailable [phone] Erica Farrell APRN SHEET SEWER Unavailable Rich Barrett MD Unavailable [phone] Neil Kent MD Unavailable Roney Story DPM Unavailable Diana Desir [facility] Unavailable [phone] Jelena David OD Unavailable Galo Burrell MD Unavailable Unavailable Livan Sharif MD Unavailable Livan Sharif MD Unavailable Catherine Cm MD Unavailable + Valery Veronica PA-C Unavailable Catherine Cm MD Unavailable + Johnny Murillo MD Unavailable [phone] Brea Quinn ASSEMBLER MOVEMENT SHEET SEWER Unavailable [phone] Brea Quinn ASSEMBLER MOVEMENT SHEET SEWER Unavailable [phone] Jose Francisco Johnson MD Unavailable Livan Sharif MD Unavailable Catherine Cm MD Unavailable + Sydnie Martinez RN Unavailable Unavailable Alfonso Renteria MD Unavailable Esha Grimm PA-C Primary Care Provider Cheng Todd PA-C Unavailable Radha Lomeli ASSEMBLER MOVEMENT SHEET SEWER Unavailable Jelena David Radha OD Unavailable Pao Joseph RN Unavailable Unavailable Esha Grimm PA-C Unavailable [phone] JeremíasValery damon PA-C Unavailable Rey Tay MD Unavailable Rocky Zepeda DO Unavailable Philip Dumont MD Unavailable [phone] Meredith Carrera PA-C Unavailable [phone] Neil Kent MD Unavailable Juan Pablo Emmanuel MD Unavailable Audrey Waite PA-C Unavailable Valery Veronica PA-C Unavailable [phone] Herminia Hatch MD Unavailable Jelena David OD Unavailable Juan Pablo Emmanuel MD Unavailable [phone] Maru Man PA-C Unavailable [phone] Maru Man PA-C Unavailable [phone] Jelena David OD Unavailable [phone] Fabiano Correa NP Unavailable [phone] Walter Nowak MD Unavailable Liset Márquez MD Unavailable Lauren Coronado [facility] Unavailable [phone] Encounter Details Date Type Department Care Team (Late st Contact Info) Description 05/11/2022 [facility] [address] [address] Diana Desir, [facility] [address] [place] [address] Social History Tobacco Use Types Packs/Day Years [...] How often do you attend pentecostal or restorationism serv ices? Never 09/22/2021 Do [...] a long term (including now)? No 09/22/2021 [place] Depression Scale Answer Date Recorded [place] Depression Score 5 01/14/2021 Last EPDS Self Harm Result Not on file 01/14 Education Answer Date Recorded What is the highest level of school you have completed or the highest degree you have received? 12th grade 08/07/2020 Comments No Sex and Gender Information Value Date Recorded Sex Assigned at Female 03/02/2021 5:45 PM CDT Legal Sex Female 4:13 AM FRUIT CANNER Gender Identity Female 03/02/2021 5:45 PM CDT [...] Description 04/30/2025 10:30 AM CDT Office Visit [facility] [address], [address] [place] [address] Liset Márquez MD [address] [place], [place] [phone] 05/30/2025 2:45 PM FRUIT CANNER Office Visit [facility] [address] [facility] [address] [place] [phone] Fabiano Correa NP [address] 364535 Walter Nowak MD [address] [place] 8[address]25 08/07/2025 8:15 AM FRUIT CANNER Office Visit [facility] [address] [facility] [address] [place] [phone] Lucien Grimes MD [address] [facility]00 [place] 952175 08/21/2025 9:00 AM FRUIT CANNER Office Visit [facility] [address] [phone] Neil Kent MD [address] [place] [address] [phone] 10/09/2025 10:45 AM CDT Virtual Visit [facility] Gastroenterology [facility] [address] [place] [address] 4th [place] [phone] Meredith Carrera PA-C [address] [place] [address] 344845 documented as of this encounter Visit Diagnoses Not on filedocumented in this encounter Additional Health Concerns Infection Onset Date Last Indicated Resolved Time Rule Out COVID-19 05/17/2022 05/17/2022 05/17/2022 10:20 PM FRUIT CANNER Rule Out COVID-19 06/09/2022 06/09/2022 06/09/2022 9:35 AM FRUIT CANNER COVID-19 06/09/2022 06/09/202206/30/2022 11:4 1 PM FRUIT CANNER Rule Out COVID-19 11/10/2022 11/10/2022 11/11/2022 12:17 [...] as of this encounter Care Teams Environmental Engineering Manager Relationship Specialty Start Date End Date Marija Edgar APRN SHEET SEWER PCP - General Nurse Practitioner 04/30/20 04/14/23 Esha Grimm PA-C [address] [place] [phone] PCP - General Family Medicine 05/04/23 Lita Oseguera Personal Advocate & Liaison (PAL) 02/28/20 03/27/23 Marija Edgar APRN SHEET SEWER Assigned PCP 06/08/20 04/29/23 Keisha Dotson MD [address] [place] [address] Assigned Neuroscience Provider 06/04/20 04/01/23 Diana Desir [facility] [address] [place] [address] Pharmacist Pharmacist 04/17/21 Rain Galaviz PA-C [address] [place] [address] [address] [place] [address] Physician Instructor Warper Dermatology 04/28/21 Tavia Wyatt MD [address] [place] [address] [address] [place] [address] Dermatology 07/14/21 Erica Farrell APRN SHEET SEWER [address] [place], [place] 038655 Nurse Practitioner Cardiovascular Disease 09/09/21 Rich Barrett MD [address] [place] [address] Physician Ophthalmology 01/21/22 Neil Kent MD 500 [place] [address] Dermatology 02/24/22 Roney Story DPM [address] [facility] 300 [place] [address] Assigned Musculoskeletal Provider 03/20/22 08/13/22 Diana Desir [facility] [address] [place] [address] Assigned MTM Pharmacist 04/07/22 Jelena David OD [address] [facility] [place] [address] Assigned Surgical Provider 05/08/22 10/08/22 Galo Burrell MD Assigned Heart and Vascular Provider 04/17/22 06/11/22 Livan Sharif MD [address] [place] 815775 Cardiovascular Disease 05/14/22 Livan Sharif MD [address] [place] 905655 Assigned Heart and Vascular Provider 06/12/22 07/23/22 Catherine Cm MD [address] [place] 381465 Cardiovascular Disease 07/21/22 Valery Veronica PAUcheC 909 [place], [place] 784935 Physician Instructor Warper Dermatology 07/21/22 Catherine Cm MD [address] [place] 012755 Assigned Heart and Vascular Provider 07/24/22 11/05/22 Johnny Murillo MD [facility] S [facility] [address] [place] [address] [phone] Assigned Musculoskeletal Provider 08/14/22 10/08/22 Brea Quinn APRN SHEET SEWER [address] [place] [address] Nurse Practitioner Dermatology 09/21/22 Brea Quinn APRN SHEET SEWER 6401 [place] [address] Assigned Surgical Provider 10/09/22 05/01/24 [place] [address] [address] Assigned Musculoskeletal Provider 10/09/22 05/01/24 Livan Sharif MD 6405 [facility] [address] [place] [address] Assigned Heart and Vascular Provider 11/06/22 11/12/22 Catherine Cm MD [address] [facility] [address] [place] [address] Assigned Heart and Vascular Provider 11/13/22 05/27/23 Sydnie Martinez RN Personal Advocate & Liaison (PAL) Family Medicine 03/28/23 07/31/23 Alfonso Renteria MD [address]75 [facility] 200 [place], [place] 475906 Assigned Neuroscience Provider 04/02/23 09/29/24 Cheng Todd PA-C [address] [place] [address] Assigned PCP 04/30/23 07/15/23 Radha Lomeli APRN SHEET SEWER 6405 [facility] [address] [place] [address] Assigned Heart and Vascular Provider 05/28/23 11/29/24 Jelena David OD [address] [place] [address] MD Ophthalmology 06/15/23 Pao Joseph, VJ Personal Advocate & Liaison (PAL) Nurse 08/01/23 11/07/23 Esha Grimm PA-C [address] [place] [phone] Assigned PCP 07/16/23 Valery Veronica PA-C [address] [place] [address] 859295 Physician Instructor Warper Dermatology 09/19/23 Rey Tay MD [address] [place] [address] 754415 MD Gastroenterology 09/20/23 Rocky Zepeda DO [address] [place] [address] 656455 Physician Gastroenterology 09/20/23 Philip Dumont MD [address] [place] [address] 997235 Physician Ophthalmology 09/22/23 Meredith Carrera PA-C [address] [place] [address] 641765 Assigned Gastroenterology Provider 11/01/23 Neil Kent MD [address] [place] [address] MD Dermatology 11/02/23 [place] [address] [place] [address] Neurological Surgery 12/26/23 Audrey Waite PA-C 500 [place] [address] Physician Instructor Warper Dermatology 02/28/24 Valery Veronica PA-C 212568 [place], [place] [address] Physician Instructor Warper Dermatology 04/10/24 Herminia Hatch MD [address] [place] [address] [id number] Assigned Rheumatology Provider 07/02/24 Jelena David OD [address] [place] [address] [place] [address] Ophthalmology 08/30/24 [place] [address] [place] [address] Assigned Neuroscience Provider 09/30/24 Maru Man PA-C [address] [place] [address] Physician Instructor Warper Dermatology 10/03/24 Maru Man PA-C [address] [place] [address] Physician Instructor Warper Dermatology 10/22/24 Jelena David OD [address] [place] [address] Assigned Surgical Provider 10/31/24 Fabiano Correa, BRYCE [address] [place] [address] Assigned Heart and Vascular Provider 11/30/24 Walter Nowak MD [address] [place] 8[address]255 Physician Clinical Cardiac Electrophysiology 03/01/25 Liset Márquez MD [address] [facility] 300 [place] [address] stock receiver 03/13/25 Lauren Coronado, [facility] 909 [place], [place] 200535 Pharmacist Pharmacist 04/15/25 documented as of this encounter
--- OUTSIDE RECORDS SUMMARY | 2025-04-27 00:03 | XMS_ITS | Encounter Summary ---
Author Organization [facility] Address [address] [place] [address] Care Team Providers Care Weapons Electrical Engineering Officer Name Role Phone Diana Desir [facility] Unavailable Rain Galaviz PA-C Unavailable [phone] Tavia Wyatt MD Unavailable [phone] Erica Farrell APRN CUFF STITCHER Unavailable Rich Barrett MD Unavailable [phone] Neil Kent MD Unavailable Diana Desir [facility] Unavailable Livan Sharif MD Unavailable Catherine Cm MD Unavailable + Valery Veronica PA-C Unavailable Brea Quinn SEED MILL SUPERINTENDENT CUFF STITCHER Unavailable Brea Quinn SEED MILL SUPERINTENDENT CUFF STITCHER Unavailable Jose Francisco Johnson MD Unavailable Alfonso Renteria MD Unavailable [phone] Esha Grimm PA-C Primary Care Provider [phone] Lomeli, Radha E SEED MILL SUPERINTENDENT CUFF STITCHER Unavailable Jelena David OD Unavailable [phone] Pao Joseph RN Unavailable Unavailable Esha Grimm Adam PA-C Unavailable [phone] Valery Veronica PA-C Unavailable [phone] Rey Tay MD Unavailable Rocky Zepeda DO Unavailable Philip Dumont MD Unavailable Meredith Carrera PA-C Unavailable Neil Ketn MD Unavailable Juan Pablo Emmanuel MD Unavailable Audrey Waite PA-C Unavailable JeremíasValery damon PA-C Unavailable Herminia Hatch MD Unavailable Jelena David OD Unavailable Juan Pablo Emmanuel MD Unavailable Maru Man PA-C Unavailable Maru Man PA-C Unavailable Jelena David OD Unavailable Fabiano Correa NP Unavailable Walter Nowak MD Unavailable Liset Márquez MD Unavailable Lauren Coronado [facility] Unavailable [phone] Encounter Details Date Type Department Care Team (Late st Contact Info) Description 09/01/2023 [facility] [address] [address] Diana Desir, [facility] [address] [place] [address] Social History Tobacco Use Types Packs/Day Years [...] often do you attend [facility] or baptism services? 1 to 4 times [...] CDT Legal Sex Female 4:13 AM EQUIPMENT INSTALLATION PROFESSIONAL Gender Identity Female 03/02/2021 5:45 PM CDT Sexual Orientation Straight 02/28/2020 12 :51 AM CDT documented as of this encounter Plan of Treatment Upcoming Encounters Date Type Department Care Team (Late st Contact Info) Description 04/30/2025 10:30 AM CDT Office Visit [facility] [address], [address] [place] [phone] Liset Márquez MD [address] [facility] 300 [place] [address] 05/30/2025 2:45 PM EQUIPMENT INSTALLATION PROFESSIONAL Office Visit [facility] [address] [facility] [address] [place] [address] [phone] Fabiano Correa, OIL WELL CABLE TOOL DRILLER 6405 [place], [place] 766085 Walter Nowak MD 4015 [place], [place] 110255 08/07/2025 8:15 AM EQUIPMENT INSTALLATION PROFESSIONAL Office Visit [facility] 6[address] [facility] [address] [place] [phone] Lucien Grimes MD [address] [phone] 08/21/2025 9:00 AM EQUIPMENT INSTALLATION PROFESSIONAL Office Visit [facility] [address] [phone] Neil Kent MD 500 [place], [place] 525965 10/09/2025 10:45 AM CDT Virtual Visit [facility] [place] 909 [facility] 4th [place] [phone] Meredith Carrera PA-C [address] [place] [address] 234305 documented as of this encounter Visit Diagnoses [...] Total Score: 4 06/20/20 23 8:40 AM EQUIPMENT INSTALLATION PROFESSIONAL documented as of this encounter Care Teams Weapons Electrical Engineering Officer Relationship Specialty Start Date End Date Esha Grimm PA-C [address] [place] [phone] PCP - General Family Medicine 05/04/23 Diana Desir, [facility] [address] [place] [address] Pharmacist Pharmacist 04/17/21 Rain Galaviz PA-C [address] [place] [address] [place] [address] Physician Hospital Television Rental Clerk Dermatology 04/28/21 Tavia Wyatt MD [address] [place] [address] [place] [address] Dermatology 07/14/21 StoErica pereira APRN CUFF STITCHER [address] [place] 488045 Nurse Practitioner Cardiovascular Disease 09/09/21 Rich Barrett MD [address] [place] 173045 Physician Ophthalmology 01/21/22 Neil Kent MD 500 [place], [place] 263515 Dermatology 02/24/22 Diana Desir, [facility] [address] [place], [place] 802326 Assigned [facility] Pharmacist 04/07/22 Lvian Sharif MD [address] [place] 985875 Cardiovascular Disease 05/14/22 Catherine Cm MD [address] [place] 657075 Cardiovascular Disease 07/21/22 Valery Veronica, PA-C 909 [place], [place] 605845 Physician Hospital Television Rental Clerk Dermatology 07/21/22 Brea Quinn APRN CUFF STITCHER 500 [place], [place] 525825 Nurse Practitioner Dermatology 09/21/22 Brea Quinn APRN CUFF STITCHER 6401 [facility] [place] [facility] [place] [address] Assigned Surgical Provider 10/09/22 05/01/24 [place] [address] [place] [address] Assigned Musculoskeletal Provider 10/09/22 05/01/24 Alfonso Renteria MD [address] [facility] 200 [place], [place] 967686 Assigned Neuroscience Provider 04/02/23 09/29/24 Radha Lomeli APRN CUFF STITCHER 6405 [facility] [address] [place] [address] Assigned Heart and Vascular Provider 05/28/23 11/29/24 Jelena David, SONJA [address] [facility] [place] [address] Ophthalmology 06/15/23 Pao Joseph, VJ Personal Advocate & Liaison (PAL) Nurse 08/01/23 11/07/23 Esha Grimm PA-C [address] [place] [phone] Assigned PCP 07/16/23 Valery Veronica PA-C [address] [place] [address] 139305 Physician Hospital Television Rental Clerk Dermatology 09/19/23 Rey Tay MD 9 [place], [place] 098315 MD Gastroenterology 09/20/23 Rocky Zepeda DO [address] [place] [address] 036285 Physician Gastroenterology 09/20/23 Philip Dumont MD [address] [place] [address] Physician Ophthalmology 09/22/23 Meredith Carrera PA-C [address] [place] [address] 905805 Assigned Gastroenterology Provider 11/01/23 Neil Kent MD [address] [place] [address] 046890 Dermatology 11/02/23 [place] [address] 055067 Neurological Surgery 12/26/23 Audrey Waite PA-C [address] [place] [address] Physician Hospital Television Rental Clerk Dermatology 02/28/24 Valery Veronica PA-C 627744 99[place], [place] [address] Physician Hospital Television Rental Clerk Dermatology 04/10/24 Herminia Hatch MD [facility]5 [place] [address] Assigned Rheumatology Provider 07/02/24 Jelena David OD [address] [place] [address] [place] [address] Ophthalmology 08/30/24 [place] [address] [address] [place] [address] Assigned Neuroscience Provider 09/30/24 Maru Man PA-C [address] [place] [address] Physician Hospital Television Rental Clerk Dermatology 10/03/24 Maru Man PA-C [address] [place] [address] Physician Hospital Television Rental Clerk Dermatology 10/22/24 Jelena David OD [address] [place] [address] [place] [address] Assigned Surgical Provider 10/31/24 Fabiano Correa NP [address] [place] [address] Assigned Heart and Vascular Provider 11/30/24 Walter Nowak MD [address] [place] [address] Physician Clinical Cardiac Electrophysiology 03/01/25 Liset Márquez MD [address] 544094 director drug safety 03/13/25 Lauren Coronado, [facility] [address] [place] [address] [phone] Pharmacist Pharmacist 04/15/25 documented as of this encounter
--- OUTSIDE RECORDS SUMMARY | 2025-04-27 00:03 | XMS_ITS | Encounter Summary ---
Author Organization [place] Address [address] [place] [address] Care Team Providers Care Software Tools Build Engineer Name Role Phone Diana Desir [facility] Unavailable Rain Galaviz PA-C Unavailable Tavia Wyatt MD Unavailable [phone] Erica Farrell APRN FISH AND GAME WARDEN Unavailable Rihc Barrett MD Unavailable [phone] Neil Kent MD Unavailable Diana Desir [facility] Unavailable [phone] Livan Sharif MD Unavailable Catherine Cm MD Unavailable + Valery Veronica PA-C Unavailable Brea Quinn WORKERS COMPENSATION DEFENSE ATTORNEY FISH AND GAME WARDEN Unavailable Brea Quinn WORKERS COMPENSATION DEFENSE ATTORNEY FISH AND GAME WARDEN Unavailable Jose Francisco Johnson MD Unavailable Alfonso Renteria MD Unavailable [phone] Esha Grimm PA-C Primary Care Provider Lomeli, Radha E WORKERS COMPENSATION DEFENSE ATTORNEY FISH AND GAME WARDEN Unavailable Jelena David OD Unavailable [phone] Pao Joseph RN Unavailable Unavailable Esha Grimm Adam PA-C Unavailable [phone] Valery Veronica PA-C Unavailable Rey Tay [...] [facility] Unavailable Encounter Details Date Type Department Care Team (Late st Contact Info) Description 09/08/2023 [facility] Medical Advice [facility] [address]th [place] [address] Mary Kelsey Social History Tobacco [...] PHQ-2 Score 0 06/20/2023 [facility] - Occupational Stress Questionnaire Answer [...] exercise at this level? 30 min 03/10/2023 [place] Depression Scale Answer Date Recorded [place] Depression Score 5 01/14/2021 Last EPDS Self [...] PM CDT Legal Sex Female 4:13 AM CASTING MACHINE ADJUSTER Gender Identity Female 03/02/2021 5:45 PM CDT Sexual Orientation Straight 02/28/2020 12 :51 AM CDT documented as of this encounter Plan of Treatment Upcoming Encounters Date Type Department Care Team (Late st Contact Info) Description 04/30/2025 10:30 AM CDT Office Visit [facility] [place] [address], [address] [place] [phone] Liset Márquez MD [address] [facility] 300 [place] [address] 05/30/2025 2:45 PM CASTING MACHINE ADJUSTER Office Visit [facility] [address] [place] [phone] Fabiano Correa, ASSEMBLY LEAD PERSON 6405 [place], [place] 891695 Walter Nowak MD 6650 [place], [place] 240815 08/07/2025 8:15 AM CASTING MACHINE ADJUSTER Office Visit [facility] [address] [phone] Lucien Grimes MD [address] 809035 08/21/2025 9:00 AM CASTING MACHINE ADJUSTER Office Visit [facility] [address] [phone] Neil Kent MD [address] [place] [address] 447695 10/09/2025 10:45 AM CDT Virtual Visit [facility] Gastroenterology [address] 4th [place] [phone] Meredith Carrera PA-C [address] [place] [address] 609025 documented as of this encounter Visit Diagnoses [...] Total Score: 4 06/20/20 23 8:40 AM CASTING MACHINE ADJUSTER documented as of this encounter Care Teams Software Tools Build Engineer Relationship Specialty Start Date End Date Esha Grimm PA-C [address] [place] [phone] PCP - General Family Medicine 05/04/23 Diana Desir, [facility] 3033 [place], [place] 259176 Pharmacist Pharmacist 04/17/21 Rain Galaviz PA-C [address] [place] [address] ENMA KNUTSON [address] Physician Tube Washer Dermatology 04/28/21 Tavia Wyatt MD [address] [place] [address] ENMA KNUTSON [address] Dermatology 07/14/21 Erica Farrell APRN FISH AND GAME WARDEN [address] [place] 8682300 [place], [place] 313295 Nurse Practitioner Cardiovascular Disease 09/09/21 Rich Barrett MD [address] [place] [address] Physician Ophthalmology 01/21/22 Neil Kent MD 500 [place], [place] 784725 Dermatology 02/24/22 Diana Desir, [facility] 3033 [place], [place] 545396 Assigned MTM Pharmacist 04/07/22 Livan Sharif MD [address] [place], [place] 152965 Cardiovascular Disease 05/14/22 Catherine Cm MD 6405 [facility] [address] [phone] Cardiovascular Disease 07/21/22 Valery Veronica, PA-C 909 [place], [place] 743485 Physician Tube Washer Dermatology 07/21/22 Brea Quinn APRN FISH AND GAME WARDEN 500 [place], [place] 903065 Nurse Practitioner Dermatology 09/21/22 Brea Quinn APRN FISH AND GAME WARDEN [address] [place] [address] [place] 548702 Assigned Surgical Provider 10/09/22 05/01/24 [place] [address] [address] 300 [place] [address] Assigned Musculoskeletal Provider 10/09/22 05/01/24 Alfonso Renteria MD 5775 [facility] 200 [place], [place] 247286 Assigned Neuroscience Provider 04/02/23 09/29/24 Radha Lomeli APRN FISH AND GAME WARDEN 6405 [facility] LISETH [facility]00 [place] [address] Assigned Heart and Vascular Provider 05/28/23 11/29/24 Jelena David OD [address] [facility] [place] [address] Ophthalmology 06/15/23 Pao Joseph, VJ Personal Advocate & Liaison (PAL) Nurse 08/01/23 11/07/23 Esha Grimm PA-C [address] [place] [phone] Assigned PCP 07/16/23 Valery Veronica PA-C [address] [place] [address] 527895 Physician Tube Washer Dermatology 09/19/23 Rey Tay MD [address] [place] [address] 714005 Gastroenterology 09/20/23 Rocky Zepeda DO [address] [place] [address] Physician Gastroenterology 09/20/23 Philip Dumont MD 516 [place] [address] Physician Ophthalmology 09/22/23 Meredith Carrera PA-C [address] [place] [address] Assigned Gastroenterology Provider 11/01/23 Neil Kent MD [address] [address] MD Dermatology 11/02/23 [place] [address] [place] [address] Neurological Surgery 12/26/23 Audrey Waite PA-C 500 [place] [address] Physician Tube Washer Dermatology 02/28/24 Valery Veronica PA-C 8[address] [place] [address] Physician Tube Washer Dermatology 04/10/24 Hreminia Hatch MD [facility] [place], [place] [phone] Assigned Rheumatology Provider 07/02/24 [place] [address] [place] [address] [place] [address] Ophthalmology 08/30/24 [place] [address] [facility] 300 [place] [address] Assigned Neuroscience Provider 09/30/24 Maru Man PA-C [address] [place] [address] Physician Tube Washer Dermatology 10/03/24 Maru Man PA-C [address] [place] [address] 006490 Physician Tube Washer Dermatology 10/22/24 Jelena David OD [address] [facility] [place] [address] Assigned Surgical Provider 10/31/24 Fabiano Correa, ASSEMBLY LEAD PERSON [address] [place] 655365 Assigned Heart and Vascular Provider 11/30/24 Walter Nowak MD [address] [place] [address] Physician Clinical Cardiac Electrophysiology 03/01/25 Liset Márquez MD [address] [facility] 300 [place] [address] corporate travel expert 03/13/25 Lauren Coronado, [facility] 9 [place], [place] 145085 Pharmacist Pharmacist 04/15/25 documented as of this encounter
--- OUTSIDE RECORDS SUMMARY | 2025-04-27 00:03 | XMS_ITS | Encounter Summary ---
Author Organization [place] Address [address] [place] [address] Care Team Providers Care New Accounts Representative Name Role Phone Diana Desir [facility] Unavailable Rain Galaviz PA-C Unavailable [phone] Tavia Wyatt MD Unavailable [phone] Erica Farrell APRN WATER AND GAS HELPER Unavailable Rich Barrett MD Unavailable [phone] Neil Kent MD Unavailable Diana Desir [facility] Unavailable Livan Sharif MD Unavailable Catherine Cm MD Unavailable + Valery Veronica PA-C Unavailable Brea Quinn QUALITY CONTROL REPRESENTATIVE WATER AND GAS HELPER Unavailable Brea Quinn QUALITY CONTROL REPRESENTATIVE WATER AND GAS HELPER Unavailable Jose Francisco Johnson MD Unavailable Alfonso Renteria MD Unavailable [phone] Esha Grimm PA-C Primary Care Provider Lomeli, Radha E QUALITY CONTROL REPRESENTATIVE WATER AND GAS HELPER Unavailable [phone] Jelena David OD Unavailable [phone] Pao Joseph RN Unavailable Unavailable Esha Grimm Adam PA-C Unavailable [phone] Valery Veronica PA-C Unavailable Rey Tay MD Unavailable Rocky Zepeda DO Unavailable Philip Dumont MD Unavailable [phone] Meredith Carrera PA-C Unavailable [phone] Neil Kent MD Unavailable Juan Pablo Emmanuel MD Unavailable Audrey Waite PA-C Unavailable JeremíasValery damon PA-C Unavailable Herminia Hatch MD Unavailable Jelena David OD Unavailable Juan Pablo Emmanuel MD Unavailable Maru Man PA-C Unavailable Maru Man PA-C Unavailable Jelena David OD Unavailable Fabiano Correa NP Unavailable Walter Nowak MD Unavailable Liset Márquez MD Unavailable Lauren Coronado [facility] Unavailable [phone] Encounter Details Date Type Department Care Team (Late st Contact Info) Description 09/08/2023 [facility] Medical Advice [facility] [address]th [place] [address] Marija Polanco, VJ Social History [...] PHQ-2 Score 0 06/20/2023 [facility] - Occupational Stress Questionnaire [...] exercise at this level? 30 min 03/10/2023 [place] Depression Scale Answer Date Recorded [place] Depression Score 5 01/14/2021 Last EPDS Self [...] PM CDT Legal Sex Female 4:13 AM CLAIMS SERVICE REPRESENTATIVE Gender Identity Female 03/02/2021 5:45 PM CDT Sexual Orientation Straight 02/28/2020 12 :51 AM CDT documented as of this encounter Plan of Treatment Upcoming Encounters Date Type Department Care Team (Late st Contact Info) Description 04/30/2025 10:30 AM CDT Office Visit [facility] [place] [address], [address] [place] [address] Liset Márquez MD [address] [address] 05/30/2025 2:45 PM CLAIMS SERVICE REPRESENTATIVE Office Visit [facility] [address] [phone] Fabiano Correa, HANDKERCHIEF MAKER 6405 [place], [place] 477695 Walter Nowak MD 8962 [place], [place] 427275 08/07/2025 8:15 AM CLAIMS SERVICE REPRESENTATIVE Office Visit [facility] [address] [phone] Lucien Grimes MD [address] 778065 08/21/2025 9:00 AM CLAIMS SERVICE REPRESENTATIVE Office Visit [address] [phone] Neil Kent MD [address] [place] [address] [phone] 10/09/2025 10:45 AM CDT Virtual Visit [facility] Gastroenterology [address] 4th [place] [phone] Meredith Carrera PAUcheC [address] [place] [address] 885495 documented as of this encounter Visit Diagnoses [...] Total Score: 4 06/20/20 23 8:40 AM CLAIMS SERVICE REPRESENTATIVE documented as of this encounter Care Teams New Accounts Representative Relationship Specialty Start Date End Date Esha Grimm PA-C [address] [place] [address] PCP - General Family Medicine 05/04/23 Diana Desir, [facility] 3033 [place], [place] 823206 Pharmacist Pharmacist 04/17/21 Rain Galaviz PA-C [address] [place] [address] ENMA KNUTSON [address] Physician Double Back Operator Dermatology 04/28/21 Tavia Wyatt MD [address] [place] [address] ENMA KNUTSON [phone] Dermatology 07/14/21 Erica Farrell APRN WATER AND GAS HELPER [address] [place] [phone] [place] [address] Nurse Practitioner Cardiovascular Disease 09/09/21 Rich Barrett MD [address] [place] 413335 Physician Ophthalmology 01/21/22 Neli Kent MD 500 [place], [place] 520715 Dermatology 02/24/22 Diana Desir, [facility] 3033 [place], [place] 050466 Assigned [facility] Pharmacist 04/07/22 Livan Sharif MD [address] [place] [address] Cardiovascular Disease 05/14/22 Catherine Cm MD 6405 [facility] S [address] 216765 Cardiovascular Disease 07/21/22 Valery Veronica, PA-C 909 [place], [place] 256785 Physician Double Back Operator Dermatology 07/21/22 Brea Quinn APRN WATER AND GAS HELPER 500 [place], [place] 019285 Nurse Practitioner Dermatology 09/21/22 Brea Quinn APRN WATER AND GAS HELPER [address] [place] [address] [place] 655012 Assigned Surgical Provider 10/09/22 05/01/24 [place] [address] [address] [facility] 300 [place] [address] Assigned Musculoskeletal Provider 10/09/22 05/01/24 Alfonso Renteria MD 5775 [facility] 200 [place], [place] 871576 Assigned Neuroscience Provider 04/02/23 09/29/24 Radha Lomeli APRN WATER AND GAS HELPER 6405 [facility] [address] [place] [address] Assigned Heart and Vascular Provider 05/28/23 11/29/24 Jelena David OD [address] [facility] [place] [address] Ophthalmology 06/15/23 Pao Joseph, VJ Personal Advocate & Liaison (PAL) Nurse 08/01/23 11/07/23 Esha Grimm PA-C [address] [place] [phone] Assigned PCP 07/16/23 Valery Veronica PA-C [address] [place] [address] 643695 Physician Double Back Operator Dermatology 09/19/23 Rey Tay MD [address] [place] [address] 834155 Gastroenterology 09/20/23 Rocky Zepeda DO [address] [place] [address] Physician Gastroenterology 09/20/23 Philip Dumont MD [address] [place] [address] Physician Ophthalmology 09/22/23 Meredith Carrera PA-C [address] [place] [address] Assigned Gastroenterology Provider 11/01/23 Neil Kent MD [address] [place] [address] MD Dermatology 11/02/23 [place] [address] [place] [address] Neurological Surgery 12/26/23 Audrey Waite PA-C [address] [place] [address] Physician Double Back Operator Dermatology 02/28/24 Valery Veronica PA-C [address]346 [address] [place] [address] Physician Double Back Operator Dermatology 04/10/24 Herminia Hatch MD [facility] [place], [place] 48379125 Assigned Rheumatology Provider 07/02/24 Jelena David OD [address] [facility] [place] [address] Ophthalmology 08/30/24 [place] [address] [address] [facility] 300 [place] [address] Assigned Neuroscience Provider 09/30/24 Maru Man PA-C [address] [place] [address] Physician Double Back Operator Dermatology 10/03/24 Maru Man PA-C [address] [place] [address] 090020 Physician Double Back Operator Dermatology 10/22/24 Jelena David OD [address] [facility] [address] Assigned Surgical Provider 10/31/24 Fabiano Correa, HANDKERCHIEF MAKER [address] [place] [address] Assigned Heart and Vascular Provider 11/30/24 Walter Nowak MD [address] [place] [address] Physician Clinical Cardiac Electrophysiology 03/01/25 Liset Márquez MD [address] [facility] 300 [place] [address] gas welder apprentice 03/13/25 Lauren Coronado, [facility] 909 [place], [place] 624795 Pharmacist Pharmacist 04/15/25 documented as of this encounter
--- OUTSIDE RECORDS SUMMARY | 2025-04-27 00:04 | XMS_ITS | Encounter Summary ---
Author Organization [place] Address [address] [place] [address] Care Team Providers Care Seasoner Hand Name Role Phone iDana Desir [facility] Unavailable Rain GalavizC Unavailable Tavia Wyatt MD Unavailable [phone] Erica Farrell APRN BIRDCAGE ASSEMBLER Unavailable Rich Barrett MD Unavailable [phone] Neil Kent MD Unavailable ThangKendrickDiana Stanislav [facility] Unavailable Livan Sharif MD Unavailable Catherine Cm MD Unavailable + Valery Veronica-C Unavailable Brea Quinn APRN BIRDCAGE ASSEMBLER Unavailable Esha Grimm PA-C Primary Care Provider Jelena David OD Unavailable Esha Grimm PA-C Unavailable [phone] Valery Veronica PA-C Unavailable [phone] Rey Tay MD Unavailable Rocky Zepeda DO Unavailable Philip Dumont MD Unavailable Meredith Carrera PA-C Unavailable [phone] Neil Kent MD Unavailable Juan Pablo Emmaneul MD Unavailable Audrey Waite PA-C Unavailable Valery Veronica PA-C Unavailable Herminia Hatch MD Unavailable Jelena David OD Unavailable Juan Pablo Emmanuel MD Unavailable [phone] Maru Man PA-C Unavailable Maru Man PA-C Unavailable Jelena David OD Unavailable Fabiano Correa NP Unavailable [phone] Walter Nowak MD Unavailable Liset Márquez MD Unavailable Lauren Coronado [facility] Unavailable [phone] Encounter Details Date Type Department Care Team (Late st Contact Info) Description 12/31/2024 [facility] Medical Advice [facility] G[facility] [address]th [place] [address] Mary Calvo Social History Tobacco [...] Answer Date Recorded PHQ-2 Score 1 10/24/2024 [facility] - Occupational [...] exercise at this level? 20 min 05/07/2024 [place] Depression Scale Answer Date Recorded [place] [...] CDT Legal Sex Female 4:13 AM HAND QUILTER Gender Identity Female 03/02/2021 5:45 PM CDT Sexual Orientation Straight 02/28/2020 12 :51 AM CDT documented as of this encounter Plan of Treatment Upcoming Encounters Date Type Department Care Team (Late st Contact Info) Description 04/30/2025 10:30 AM CDT Office Visit [facility] [address] Fl[address], [address] [place] [phone] Liset Márquez MD [address] [place] [address] 05/30/2025 2:45 PM HAND QUILTER Office Visit [facility] 6405 [facility] [address] [place] [phone] Fabiano Correa NP [address] [place] [address] Walter Nowak MD [address] [place] 129145 08/07/2025 8:15 AM HAND QUILTER Office Visit [facility] 6405 [facility] [address] [place] [phone] Lucien Grimes MD [address] [place] [address] 08/21/2025 9:00 AM HAND QUILTER Office Visit [facility] [address] [phone] Neil Kent MD [address] [place] [address] 10/09/2025 10:45 AM CDT Virtual Visit [facility] Gastroenterology [address] 4th [place] [address] Meredith Carrera PA-C [address] [place] [address] 583035 documented as of this encounter Visit Diagnoses Not on filedocumented in this encounter Additional Health Concerns Assessment Noted Time PHQ-9 Depression Total Score: 5 10/25/19 25 10:38 AM CDT documented as of this encounter Care Teams Seasoner Hand Relationship Specialty Start Date End Date Esha Grimm PA-C [address] [place] [phone] PCP - General Family Medicine 05/04/23 Diana Desir, [facility] [address] [place] [address] Pharmacist Pharmacist 04/17/21 Rain Galaviz PA-C [address] [place] [address] [address] [place] [address] Physician Stitch Marker Dermatology 04/28/21 Tavia Wyatt MD [address] [place] [address] [address] [place] [address] Dermatology 07/14/21 Erica Farrell APRN BIRDCAGE ASSEMBLER [address] [place] [address] Nurse Practitioner Cardiovascular Disease 09/09/21 Rich Barrett MD [address] [place] [address] Physician Ophthalmology 01/21/22 Neil Kent MD 500 [place] [address] Dermatology 02/24/22 Diana Desir, [facility] [address] [place] [address] Assigned MTM Pharmacist 04/07/22 Livan Sharif MD [address] [facility] [address] [place] 767675 Cardiovascular Disease 05/14/22 Catherine Cm MD 6405 [facility] [address] [place], [place] [address]65 Cardiovascular Disease 07/21/22 Valery Veronica, PA-C [address] [place] [address] 866805 Physician Stitch Marker Dermatology 07/21/22 Brea Quinn APRN BIRDCAGE ASSEMBLER [address] [place] [address] [phone] Nurse Practitioner Dermatology 09/21/22 [place] [address] [place] [address] [address] [place] [phone] Ophthalmology 06/15/23 Esha Grimm PA-C [address] [place] [phone] Assigned PCP 07/16/23 Valery Veronica, PA-C [address] [place] [address] 674455 Physician Stitch Marker Dermatology 09/19/23 Rey Tay MD [address] [place] [address] 784415 Gastroenterology 09/20/23 Rocky Zepeda DO [address] [place] [address] 029845 Physician Gastroenterology 09/20/23 Philip Dumont MD [address] [place] [address] Physician Ophthalmology 09/22/23 Meredith Carrera PA-C [address] [place] [address] Assigned Gastroenterology Provider 11/01/23 Neil Kent MD [address] [address] Dermatology 11/02/23 [place] [address] [place], [place] 171137 Neurological Surgery 12/26/23 Audrey Waite PA-C [address] [place] [address] Physician Stitch Marker Dermatology 02/28/24 Valery Veronica PA-C [address]7938 [address] [place] [address] Physician Stitch Marker Dermatology 04/10/24 Herminia Hatch MD [address] [place] [address] [phone] Assigned Rheumatology Provider 07/02/24 Jelena David OD [address] [place] [address] ENMA K[place] [address] Ophthalmology 08/30/24 [place] [address] [place] 825287 Assigned Neuroscience Provider 09/30/24 Maru Man PA-C [address] [place] [address] Physician Stitch Marker Dermatology 10/03/24 Maru Man PA-C [address] [place] [address] Physician Stitch Marker Dermatology 10/22/24 Jelena David OD [address] [facility] [address] Assigned Surgical Provider 10/31/24 Fabiano Correa NP 6405 [facility] [place] 517705 Assigned Heart and Vascular Provider 11/30/24 Walter Nowak MD [address] [place] 346755 Physician Clinical Cardiac Electrophysiology 03/01/25 Liset Márquez MD 606 24[address] [facility] S [facility] 300 [place], [place] 244264 plant mechanic 03/13/25 Lauren Coronado, [facility] 909 [place], [place] 290695 Pharmacist Pharmacist 04/15/25 documented as of this encounter
--- OUTSIDE RECORDS SUMMARY | 2025-04-27 00:04 | XMS_ITS | Encounter Summary ---
Author Organization [facility] Address [address] [place] [address] Care Team Providers Care Lead Web Application Developer Name Role Phone Diana Desir [facility] Unavailable Rain GalavizC Unavailable Tavia Wyatt MD Unavailable [phone] Erica Farrell APRN INVOICE CONTROL CLERK Unavailable Rich Barrett MD Unavailable [phone] Neil Kent MD Unavailable ThangKendrickDiana Stanislav [facility] Unavailable [phone] Livan Sharif MD Unavailable Catherine Cm MD Unavailable + Valery Veronica-C Unavailable Brea Quinn APRN INVOICE CONTROL CLERK Unavailable Esha Grimm PA-C Primary Care Provider Jelena David OD Unavailable [phone] Esha Grimm PA-C Unavailable [phone] Valery Veronica PA-C Unavailable Rey Tay MD Unavailable Duane Rocky Unavailable Philip Dumont MD Unavailable [phone] Meredith Carrera PA-C Unavailable Neil Kent MD Unavailable Juan Pablo Emmanuel MD Unavailable Audrey Waite-C Unavailable Valery Veronica PA-C Unavailable Herminia Hatch MD Unavailable Jelena David OD Unavailable [phone] Juan Pablo Emmanuel MD Unavailable Maru ManC Unavailable Maru ManC Unavailable Jelena David OD Unavailable Fabiano Correa NP Unavailable [phone] Walter Nowak MD Unavailable Liset Márquez MD Unavailable Lauren Coronado [facility] Unavailable Encounter Details Date Type Department Care Team (Late st Contact Info) Description 01/08/2025 [facility] Adv[facility] G[facility]ology Clinic [address] 4th [place] [address] Meredith Carrera PA-C [address] [place] [address] Social History Tobacco Use Types Packs/Day [...] [facility] [...] exercise at this level? 20 min 05/07/2024 [place] Depression Scale Answer Date Recorded [place] Depression Score 5 01/14/2021 Last EPDS Self [...] Date Recorded Do you have housing? (Catherine avles is defined as stable permanent housing and [...] PM CDT Legal Sex Female 4:13 AM BAND TOP MAKER Gender Identity Female 03/02/2021 5:45 PM CDT Sexual Orientation Straight 02/28/2020 12 :51 AM CDT documented as of this encounter Plan of Treatment Upcoming Encounters Date Type Department Care Team (Late st Contact Info) Description 04/30/2025 10:30 AM CDT Office Visit [facility] [address], [address] Fl[address], [address] [place] [address] Liset Márquez MD [address] [facility] 300 [place] [address] 05/30/2025 2:45 PM BAND TOP MAKER Office Visit [facility] Heart [facility] 6405 [facility] [address] [place] [phone] Fabiano Correa, BRYCE 6405 [place], [place] 504125 Walter Nowak MD 7532 [place], [place] 9[address] 08/07/2025 8:15 AM BAND TOP MAKER Office Visit [facility] Heart [facility] 6405 [facility] [address] [place] [phone] Lucien Grimes MD [address] 6175000 [place], [place] 9[address]855 08/21/2025 9:00 AM BAND TOP MAKER Office [facility] [address] [address] Neil Kent MD [address] [place] [address] 578275 10/09/2025 10:45 AM CDT Virtual Visit [facility] Gastro[facility]ology Clinic [address] 4th [place] [address] Meredith Carrera PA-C [address] [place] [address] 904535 documented as of this encounter Visit Diagnoses Not on filedocumented in this encounter Additional Health Concerns Assessment Noted Time PHQ-9 Depression Total Score: 5 10/25/19 25 10:38 AM CDT documented as of this encounter Care Teams Lead Web Application Developer Relationship Specialty Start Date End Date Esha Grimm PA-C [address] [facility] [place] [address] PCP - General Family Medicine 05/04/23 Diana Desir, [facility] [address] [place] [address] Pharmacist Pharmacist 04/17/21 Rain Galaviz PA-C [address] [place] [address] [address] [place] [facility] [place] [address] Physician Bi Lead Dermatology 04/28/21 Tavia Wyatt MD [address] [place] [address] [address] [place] [facility] [address] Dermatology 07/14/21 Erica Farrell APRN INVOICE CONTROL CLERK [address] [place] [address] Nurse Practitioner Cardiovascular Disease 09/09/21 Rich Barrett MD [address] [place] [address] Physician Ophthalmology 01/21/22 Neil Kent MD 500 [place], [place] 865065 Dermatology 02/24/22 Diana Desir, [facility] 3033 [place] [address] Assigned MTM Pharmacist 04/07/22 Livan Sharif MD [address] [place], [place] 054575 Cardiovascular Disease 05/14/22 Catherine Cm MD [address] [place], [place] 558185 Cardiovascular Disease 07/21/22 Valery Veronica, PA-C [address] [place] [address] 254065 Physician Bi Lead Dermatology 07/21/22 Brea Quinn APRN INVOICE CONTROL CLERK [address] [place] [address] 691665 Nurse Practitioner Dermatology 09/21/22 Jelena David OD [address] [place] [address] [place] [address] Ophthalmology 06/15/23 Esha Grimm PA-C [address] [place] [address] Assigned PCP 07/16/23 Valery Veronica, PA-C [address] [place] [address] 258655 Physician Bi Lead Dermatology 09/19/23 Rey Tay MD [address] [place] [address] 737195 Gastroenterology 09/20/23 Rocky Zepeda DO [address] [place] [address] Physician Gastroenterology 09/20/23 Philip Dumont MD [address] [place] [address] Physician Ophthalmology 09/22/23 Meredith Carrera PA-C [address] [place] [address] Assigned Gastroenterology Provider 11/01/23 Neil Kent MD [address] [place] [address] 588560 MD Dermatology 11/02/23 [place] [address] [place] [facility] [address] Neurological Surgery 12/26/23 Audrey Waite PA-C [address] [place] [address] 027385 Physician Bi Lead Dermatology 02/28/24 Valery Veronica PA-C 130871 [place] [address] Physician Bi Lead Dermatology 04/10/24 Herminia Hatch MD [facility]5 [place], [place] [phone] Assigned Rheumatology Provider 07/02/24 [place] [address] [place] [address] [place] [address] Ophthalmology 08/30/24 [place] [address] [place] [facility] 300 [place] [address] Assigned Neuroscience Provider 09/30/24 Maru Man PA-C [address] [place] [address] Physician Bi Lead Dermatology 10/03/24 Maru Man PA-C [address] [place] [address] 818400 Physician Bi Lead Dermatology 10/22/24 Jelena David OD [address] [place] [place] [address] Assigned Surgical Provider 10/31/24 Fabiano Correa, BRYCE [address] [place] 441065 Assigned Heart and Vascular Provider 11/30/24 Walter Nowak MD [address] [place] [address] Physician Clinical Cardiac Electrophysiology 03/01/25 Liset Márquez MD [address] [facility] 300 [place] [address] backup engineer 03/13/25 Lauren Coronado, [facility] 909 [place], [place] 973805 Pharmacist Pharmacist 04/15/25 documented as of this encounter
--- OUTSIDE RECORDS SUMMARY | 2025-04-27 00:04 | XMS_ITS | Encounter Summary ---
Author Organization [place] Address [address] [place] [address] Care Team Providers Care Joint Cleaning Machine Operator Name Role Phone Diana Desir [facility] Unavailable Rain Galaviz PA-C Unavailable Tavia Wyatt MD Unavailable [phone] Erica Farrell APRN BALLAST CLEANING OPERATOR Unavailable Rich Barrett MD Unavailable [phone] Neil Kent MD Unavailable Diana Desir [facility] Unavailable Livan Sharif MD Unavailable Catherine Cm MD Unavailable + Valery Veronica PA-C Unavailable [phone] Brea Quinn BUSINESS INITIATIVES MANAGER BALLAST CLEANING OPERATOR Unavailable Brea Quinn BUSINESS INITIATIVES MANAGER BALLAST CLEANING OPERATOR Unavailable Jose Francisco Johnson MD Unavailable Alfonso Renteria MD Unavailable [phone] Esha Grimm PA-C Primary Care Provider Lomeli, Radha E BUSINESS INITIATIVES MANAGER BALLAST CLEANING OPERATOR Unavailable Jelena David OD Unavailable [phone] Pao Joseph RN Unavailable Unavailable Esha Grimm Adam PA-C Unavailable [phone] Valery Veronica PA-C Unavailable Rey Tay [...] Team (Late st Contact Info) Description 08/25/2023 [facility] [address] [address] Diana Desir, [facility] 3033 [place] [address] Social History Tobacco Use Types Packs/Day Years [...] often do you attend [facility] or jainism services? 1 to 4 [...] Answer Date Recorded PHQ-2 Score 0 06/20/2023 [facility] ional [...] exercise at this level? 30 min 03/10/2023 [place] Depression Scale Answer Date Recorded [place] Depression Score 5 01/14/2021 Last EPDS [...] PM CDT Legal Sex Female 4:13 AM TURN OUT Gender Identity Female 03/02/2021 5:45 PM CDT Sexual Orientation Straight 02/28/2020 12 :51 AM CDT documented as of this encounter Plan of Treatment Upcoming Encounters Date Type Department Care Team (Late st Contact Info) Description 04/30/2025 10:30 AM CDT Office Visit [facility] [address], [address] [place] [phone] Liset Márquez MD [address] [facility] 300 [place] [address] 05/30/2025 2:45 PM TURN OUT Office Visit [facility] Heart [facility] 6405 [facility] [address] [place] [phone] Fabiano Correa, FILM RECORDIST 6405 [place], [place] 721195 Walter Nowak MD 2678 [place], [place] 532595 08/07/2025 8:15 AM TURN OUT Office Visit [facility] Heart [facility] 6405 [facility] [address] [place] [phone] Lucien Grimes MD [address] 947735 08/21/2025 9:00 AM TURN OUT Office Visit [facility] [address] [phone] Neil Kent MD 500 [place], [place] 551655 10/09/2025 10:45 AM CDT Virtual Visit [facility] Gastroenterology Clinic [place] 909 [facility] 4th [place] [phone] Meredith Carrera PA-C [address] [place] [address] 982825 documented as of this encounter Visit Diagnoses [...] Total Score: 4 06/20/20 23 8:40 AM TURN OUT documented as of this encounter Care Teams Joint Cleaning Machine Operator Relationship Specialty Start Date End Date Esha Grimm PA-C [address] [place] [address] PCP - General Family Medicine 05/04/23 Diana Desir, [facility] [address] [place] [address] Pharmacist Pharmacist 04/17/21 Rain Galaviz PA-C [address] [place] [address] [place] [address] Physician Material Engineer Dermatology 04/28/21 Tavia Wyatt MD [address] [place] [address] [place] [address] Dermatology 07/14/21 StoErica pereira APRN BALLAST CLEANING OPERATOR [address] [place] 462775 Nurse Practitioner Cardiovascular Disease 09/09/21 Rich Barrett MD [address] [place] 876455 Physician Ophthalmology 01/21/22 Neil Kent MD 500 [place], [place] 826035 Dermatology 02/24/22 Diana Desir, [facility] 3033 [place], [place] 499296 Assigned [facility] Pharmacist 04/07/22 Livan Sharif MD [address] [place] 983465 Cardiovascular Disease 05/14/22 Catherine Cm MD [address] [place] 562775 Cardiovascular Disease 07/21/22 Valery Veronica, PA-C 909 [place], [place] 402285 Physician Material Engineer Dermatology 07/21/22 Brea Quinn APRN BALLAST CLEANING OPERATOR 500 [place], [place] 948165 Nurse Practitioner Dermatology 09/21/22 Brea Quinn APRN BALLAST CLEANING OPERATOR 6401 [facility] [place] [facility] [place] [address] Assigned Surgical Provider 10/09/22 05/01/24 [place] [address] [place] [address] Assigned Musculoskeletal Provider 10/09/22 05/01/24 Alfonso Renteria MD 5775 [facility] 200 [place], [place] 281106 Assigned Neuroscience Provider 04/02/23 09/29/24 Radha Lomeli APRN BALLAST CLEANING OPERATOR 6405 [facility] [address] [place] [address] Assigned Heart and Vascular Provider 05/28/23 11/29/24 Jelena David, SONJA [address] [place] [address] Ophthalmology 06/15/23 Pao Joseph, VJ Personal Advocate & Liaison (PAL) Nurse 08/01/23 11/07/23 Esha Grimm PA-C [address] [place] [address] Assigned PCP 07/16/23 Valery Veronica PA-C [address] [place] [address] 608175 Physician Material Engineer Dermatology 09/19/23 Rey Tay MD 9 [place], [place] 216005 MD Gastroenterology 09/20/23 Rocky Zepeda DO [address] [place] [address] 478295 Physician Gastroenterology 09/20/23 Philip Dumont MD [address] [place] [address] Physician Ophthalmology 09/22/23 Meredith Carrera PA-C [address] [place] [address] 902105 Assigned Gastroenterology Provider 11/01/23 Neil Kent MD [address] [place] [address] 650470 Dermatology 11/02/23 [place] [address] 141267 Neurological Surgery 12/26/23 Audrey Waite PA-C [address] [place] [address] Physician Material Engineer Dermatology 02/28/24 Valery Veronica PA-C 156206 [place] [address] Physician Material Engineer Dermatology 04/10/24 Herminia Hatch MD [facility]5 [place] [address] Assigned Rheumatology Provider 07/02/24 Jelena David OD [address] [place] [address] [place] [address] Ophthalmology 08/30/24 [place] [address] [address] 300 [place] [address] Assigned Neuroscience Provider 09/30/24 Maru Man PA-C [address] [place] [address] Physician Material Engineer Dermatology 10/03/24 Maru Man PA-C [address] [place] [address] Physician Material Engineer Dermatology 10/22/24 Jelena David OD [address] [place] [address] [place] [address] Assigned Surgical Provider 10/31/24 Fabiano Correa NP [address] [place] [address] Assigned Heart and Vascular Provider 11/30/24 Walter Nowak MD [address] [place] [address] Physician Clinical Cardiac Electrophysiology 03/01/25 Liset Márquez MD [address] [phone] claim clinician 03/13/25 Lauren Coronado, [facility] [address] [place] [address] [phone] Pharmacist Pharmacist 04/15/25 documented as of this encounter
--- OUTSIDE RECORDS SUMMARY | 2025-04-27 00:04 | XMS_ITS | Encounter Summary ---
Author Organization [place] Address [address] [place] [address] Care Team Providers Care Closing Manager Name Role Phone Diana Desir [facility] Unavailable Rain GalavizC Unavailable Tavia Wyatt MD Unavailable Erica Farrell APRN IGNITION EXPERT Unavailable Rich Barrett MD Unavailable [phone] Neil Kent MD Unavailable DesirKendrickDiana Stanislav [facility] Unavailable [phone] Livan Sharif MD Unavailable Catherine Cm MD Unavailable + Valery Veronica-C Unavailable [phone] Brea Quinn MACHINE RIVETER IGNITION EXPERT Unavailable Alfonso Renteria MD Unavailable [phone] Esha GrimmC Primary Care Provider [phone] Radha Lomeli MACHINE RIVETER IGNITION EXPERT Unavailable [phone] Jelena David OD Unavailable [place], Esha M PA-C Unavailable [phone] Valery Veronica PA-C Unavailable Rey Tay [...] Unavailable Lauren Coronado [facility] Unavailable Encounter Details Date Type Department Care Team (Late st Contact Info) Description 09/07/2024 [facility] G[facility] Clinic [address]th [place] [address] Meredith Carrera PA-C [address] [place] [address] Social History Tobacco Use Types Packs/Day [...] exercise at this level? 20 min 05/07/2024 [place] Depression Scale Answer Date Recorded [place] Depression Score 5 01/14/2021 Last EPDS Self [...] PM CDT Legal Sex Female 4:13 AM CONTROL CABINET ASSEMBLER Gender Identity Female 03/02/2021 5:45 PM CDT Sexual Orientation Straight 02/28/2020 12 :51 AM CDT documented as of this encounter Plan of Treatment Upcoming Encounters Date Type Department Care Team (Late st Contact Info) Description 04/30/2025 10:30 AM CDT Office Visit [facility] [address] Fl[address], [address] [place] [phone] Liset Márquez MD [address] [facility] 300 [place] [address] 05/30/2025 2:45 PM CONTROL CABINET ASSEMBLER Office Visit [facility] Heart [facility] [address] [phone] Fabiano Correa, BRYCE 6405 [place], [place] 315805 Walter Nowak MD 7646 [place], [place] 207455 08/07/2025 8:15 AM CONTROL CABINET ASSEMBLER Office Visit [facility] Heart [facility] [address] [phone] Lucien Grimes MD [address] 556[address] 08/21/2025 9:00 AM CONTROL CABINET ASSEMBLER Office Visit [facility] [address] [phone] Neil Kent MD [address] [place] [address] 977015 10/09/2025 10:45 AM CDT Virtual Visit [facility] Gastroenterology Clinic [address] 4th [place] [address] Meredith Carrera PA-C [address] [place] [address] 445415 documented as of this encounter Visit Diagnoses [...] documented as of this encounter Care Teams Closing Manager Relationship Specialty Start Date End Date Esha Grimm PA-C [address] [place] [address] PCP - General Family Medicine 05/04/23 Diana Desir [facility]3 [place] [address] Pharmacist Pharmacist 04/17/21 Rain Galaviz PA-C [address] [place] [address] [address] [place] [address] Physician Meal Temperer Dermatology 04/28/21 Tavia Wyatt MD [address] [place] [address] [address] [place] [address] Dermatology 07/14/21 Erica Farrell APRN IGNITION EXPERT [address] [place] [address] Nurse Practitioner Cardiovascular Disease 09/09/21 Rich Barrett MD [address] [place] [address] Physician Ophthalmology 01/21/22 Neil Kent MD 500 [place] [address] Dermatology 02/24/22 [facility] 3033 [place] [address] Assigned MTM Pharmacist 04/07/22 Livan Sharif MD [address] [address] Cardiovascular Disease 05/14/22 Catherine Cm MD 6405 [facility] [address] [address] Cardiovascular Disease 07/21/22 Valery Veronica, PA-C 9 [place] [address] Physician Meal Temperer Dermatology 07/21/22 Brea Quinn APRN IGNITION EXPERT 500 [place] [address] Nurse Practitioner Dermatology 09/21/22 Alfonso Renteria MD [address] 696656 Assigned Neuroscience Provider 04/02/23 09/29/24 Radha Lomeli APRN IGNITION EXPERT [address] [address] Assigned Heart and Vascular Provider 05/28/23 11/29/24 Jelena David OD [address] [place] [address] MD Ophthalmology 06/15/23 Esha Grimm PA-C [address] [place] [phone] Assigned PCP 07/16/23 Valery Veronica PA-C [address] [place] [address] 823715 Physician Meal Temperer Dermatology 09/19/23 Rey Tay MD [address] [place] [address] 863025 MD Gastroenterology 09/20/23 Rocky Zepeda DO [address] [place] [address] 934705 Physician Gastroenterology 09/20/23 Philip Dumont MD [address] [place] [address] 293195 Physician Ophthalmology 09/22/23 Meredith Carrera PA-C [address] [place] [address] 922045 Assigned Gastroenterology Provider 11/01/23 Neil Kent MD [address] [phone] Dermatology 11/02/23 [place] [address] [place] [address] Neurological Surgery 12/26/23 Audrey Waite PA-C 500 [place] [address] Physician Meal Temperer Dermatology 02/28/24 Valery Veronica PA-C 735400 [place], [place] [address] Physician Meal Temperer Dermatology 04/10/24 Herminia Hatch MD [address] [place] [address] [phone] Assigned Rheumatology Provider 07/02/24 Jelena David, SONJA [address] [place] [address] [place] [address] Ophthalmology 08/30/24 [place] [address] [place] [address] Assigned Neuroscience Provider 09/30/24 Maru Man PA-C [address] [place] [address] Physician Meal Temperer Dermatology 10/03/24 Maru Man PA-C [address] [place] [address] Physician Meal Temperer Dermatology 10/22/24 [place]ena David OD 3305 [facility] [place] [address] Assigned Surgical Provider 10/31/24 Fabiano Correa NP [address] [place] [address] Assigned Heart and Vascular Provider 11/30/24 Walter Nowak MD [address] [place] [address] Physician Clinical Cardiac Electrophysiology 03/01/25 Liset Márquez MD 606 [address] [address] [address] mannequin maker 03/13/25 Lauren Coronado, [facility] [address] [place] [address] [phone] Pharmacist Pharmacist 04/15/25 documented as of this encounter
--- OUTSIDE RECORDS SUMMARY | 2025-04-27 00:04 | XMS_ITS | Encounter Summary ---
Author Organization [place] Address [address] [place] [address] Care Team Providers Care Broadcasting Equipment Mechanic Name Role Phone Diana Desir [facility] Unavailable Rain GalavizC Unavailable Tavia Wyatt MD Unavailable [phone] Erica Farrell APRN RAILWAY SIGNAL TECHNICIAN Unavailable Rich Barrett MD Unavailable [phone] Neil Kent MD Unavailable ThangKendrickDiana Stanislav [facility] Unavailable Livan Sharif MD Unavailable Catherine Cm MD Unavailable + Valery Veronica-C Unavailable [phone] Brea Quinn APRN RAILWAY SIGNAL TECHNICIAN Unavailable Esha Grimm PA-C Primary Care Provider Jelena David OD Unavailable Esha Grimm PA-C Unavailable [phone] Valery Veronica PA-C Unavailable [phone] Rey Tay MD Unavailable DuaneRocky Unavailable Philip Dumont MD Unavailable Meredith Carrera PA-C Unavailable [phone] Neil Kent MD Unavailable Juan Pablo Emmanuel MD Unavailable [phone] Audrey Waite PA-C Unavailable Valery Veronica PA-C Unavailable Herminia Hatch MD Unavailable Jelena David OD Unavailable Juan Pablo Emmanuel MD Unavailable Maru Man PA-C Unavailable Maru Man PA-C Unavailable Jelena David OD Unavailable Fabiano Correa NP Unavailable [phone] Walter Nowak MD Unavailable Liset Márquez MD Unavailable Lauren Coronado [facility] Unavailable [phone] Encounter Details Date Type Department Care Team (Late st Contact Info) Description 01/02/2025 MyC Medical Advice [facility] [address] [address] Marija Bailey, RN Social History Tobacco Use Types Packs/Day [...] PHQ-2 Score 1 10/24/2024 [facility] - Occupational Stress [...] exercise at this level? 20 min 05/07/2024 [place] Depression Scale Answer Date Recorded [place] Depression Score 5 01/14/2021 Last EPDS Self [...] CDT Legal Sex Female 4:13 AM DRUG PURCHASER Gender Identity Female 03/02/2021 5:45 PM CDT Sexual Orientation Straight 02/28/2020 12 :51 AM CDT documented as of this encounter Plan of Treatment Upcoming Encounters Date Type Department Care Team (Late st Contact Info) Description 04/30/2025 10:30 AM CDT [facility] Visit [facility] [address], [address] [place] [employer] [place] [phone] Liset Márquez MD [address] [facility] 300 [place] [address] 05/30/2025 2:45 PM DRUG PURCHASER Office Visit [facility] 6405 [facility] [address] [place] [phone] Fabiano Correa NP [address] [place] 564075 Walter Nowak MD [address] [place] [place] 195795 08/07/2025 8:15 AM DRUG PURCHASER [facility] Visit [facility] 6[address] [facility] [address] [place] [phone] Lucien Grimes MD [address] [facility] [place] 764485 08/21/2025 9:00 AM DRUG PURCHASER Office Visit [facility] [address] [phone] Neil Kent MD [address] [place] [address] 073235 10/09/2025 10:45 AM CDT Virtual [facility] Gastroenterology [address] 4th [place] [phone] Meredith Carrera PA-C [address] [place] [address] 306015 documented as of this encounter Visit Diagnoses Not on filedocumented in this encounter Additional Health Concerns Assessment Noted Time PHQ-9 Depression Total Score: 5 10/25/19 25 10:38 AM CDT documented as of this encounter Care Teams Broadcasting Equipment Mechanic Relationship Specialty Start Date End Date Esha Grimm PA-C [address] [place] [phone] PCP - General Family Medicine 05/04/23 Diana Desir, [facility] [address] [place] [address] Pharmacist Pharmacist 04/17/21 Rain Galaviz PA-C [address] [place] [address] [address] [place] [address] Physician Enrollment Specialist Dermatology 04/28/21 Tavia Wyatt MD [address] [place] [address] [address] [place] [address] Dermatology 07/14/21 Erica Farrell APRN RAILWAY SIGNAL TECHNICIAN [address] [place] [address] Nurse Practitioner Cardiovascular Disease 09/09/21 Rich Barrett MD [address] [place] [address] Physician Ophthalmology 01/21/22 Neil Kent MD 500 [place] [address] Dermatology 02/24/22 Diana Desir, [facility] [address] [address] Assigned MTM Pharmacist 04/07/22 Livan Sharif MD [address] [facility] [address] [place] 238325 Cardiovascular Disease 05/14/22 Catherine Cm MD [address] [facility] [address] [place], [place] 299125 Cardiovascular Disease 07/21/22 Valery Veronica, PA-C [address] [place] [address] 396455 Physician Enrollment Specialist Dermatology 07/21/22 Brea Quinn APRN RAILWAY SIGNAL TECHNICIAN [address] [place] [address] 780225 Nurse Practitioner Dermatology 09/21/22 Jelena David OD [address] [facility] [address] [place] [id number] MD Ophthalmology 06/15/23 Esha Grimm PA-C [address] [place] [phone] Assigned PCP 07/16/23 Valery Veronica, PA-C [address] [place] [address] 830845 Physician Enrollment Specialist Dermatology 09/19/23 Rey Tay MD [address] [place] [address] 590225 Gastroenterology 09/20/23 Rocky Zepeda DO [address] [place] [address] Physician Gastroenterology 09/20/23 Philip Dumont MD [address] [place] [address] Physician Ophthalmology 09/22/23 Meredith Carrera PA-C [address] [place] [address] Assigned Gastroenterology Provider 11/01/23 Neil Kent MD [address] [address] Dermatology 11/02/23 [place] [address] [place], [place] 898397 Neurological Surgery 12/26/23 Audrey Waite PA-C [address] [place] [address] Physician Enrollment Specialist Dermatology 02/28/24 Valery Veronica PA-C [address]505 [address] [place] [address] Physician Enrollment Specialist Dermatology 04/10/24 Herminia Hatch MD [address] [place] [address] [id number] Assigned Rheumatology Provider 07/02/24 Jelena David OD [address] [place] [address] [place] [address] Ophthalmology 08/30/24 [place] [address] [place] 157[address] Assigned Neuroscience Provider 09/30/24 Maru Man PA-C [address] [place] [address] Physician Enrollment Specialist Dermatology 10/03/24 Maru Man PA-C [address] [place] [address] Physician Enrollment Specialist Dermatology 10/22/24 Jelena David OD [address] [facility] [place] [address] Assigned Surgical Provider 10/31/24 Fabiano Correa NP 6405 [facility] [place] [place] 65[address] Assigned Heart and Vascular Provider 11/30/24 Walter Nowak MD [address] [place] 428745 Physician Clinical Cardiac Electrophysiology 03/01/25 Liset Márquez MD 606 [facility] 300 [place], [place] 032674 casework supervisor 03/13/25 Lauren Coronado, [facility] 909 [place], [place] 241775 Pharmacist Pharmacist 04/15/25 documented as of this encounter
--- OUTSIDE RECORDS SUMMARY | 2025-04-27 00:05 | XMS_ITS | Encounter Summary ---
Author Organization [place] Address [address] [place] [address] Care Team Providers Care Plant Controls Specialist Name Role Phone Diana Desir [facility] Unavailable Rain Galaviz PA-C Unavailable Tavia Wyatt MD Unavailable [phone] Erica Farrell APRN NIP WRAPPER Unavailable Rich Barrett MD Unavailable [phone] Neil Kent MD Unavailable Diana Desir [facility] Unavailable [phone] Livan Sharif MD Unavailable Catherine Cm MD Unavailable + Valery Veronica PA-C Unavailable Brea Quinn PROFESSOR OF ENVIRONMENTAL ENGINEERING NIP WRAPPER Unavailable [phone] Brea Quinn PROFESSOR OF ENVIRONMENTAL ENGINEERING NIP WRAPPER Unavailable Jose Francisco Johnson MD Unavailable Alfonso Renteria MD Unavailable [phone] Esha Grimm PA-C Primary Care Provider Lomeli, Radha E PROFESSOR OF ENVIRONMENTAL ENGINEERING NIP WRAPPER Unavailable [phone] Jelena David OD Unavailable [phone] Pao Joseph RN Unavailable Unavailable Esha Grimm Adam PA-C Unavailable [phone] Valery Veronica PA-C Unavailable Rey Tay MD Unavailable Rocky Zepeda DO Unavailable Philip Dumont MD Unavailable [phone] Meredith Carrera PA-C Unavailable [phone] Neil Kent MD Unavailable Juan Pablo Emmanuel MD Unavailable Audrey Waite PA-C Unavailable JeremíasValery damon PA-C Unavailable Herminia Hatch MD Unavailable Jelena David OD Unavailable Juan Pablo Emmanuel MD Unavailable Maru Man PA-C Unavailable Maru Man PA-C Unavailable Jelena David OD Unavailable Fabiano Correa NP Unavailable Walter Nowak MD Unavailable Liset Márquez MD Unavailable Lauren Coronado [facility] Unavailable [phone] Encounter Details Date Type Department Care Team (Late st Contact Info) Description 08/25/2023 [facility] Medical Advice [facility] [address]th [place] [address] Marija Polanco, VJ Social History [...] 0 06/20/2023 [facility] - Occupational Stress [...] exercise at this level? 30 min 03/10/2023 [place] Depression Scale Answer Date Recorded [place] Depression Score 5 01/14/2021 Last EPDS Self [...] PM CDT Legal Sex Female 4:13 AM COMMAND AND CONTROL Gender Identity Female 03/02/2021 5:45 PM CDT Sexual Orientation Straight 02/28/2020 12 :51 AM CDT documented as of this encounter Plan of Treatment Upcoming Encounters Date Type Department Care Team (Late st Contact Info) Description 04/30/2025 10:30 AM CDT Office Visit [facility] [place] [address], [address] [place] [address] Liset Márquez MD [address] [address] 05/30/2025 2:45 PM COMMAND AND CONTROL Office Visit [facility] [address] [phone] Fabiano Correa, REPERTOIRE MANAGER 6405 [place], [place] 498195 Walter Nowak MD 4604 [place], [place] 445235 08/07/2025 8:15 AM COMMAND AND CONTROL Office Visit [facility] [address] [phone] Lucien Grimes MD [address] [phone] 08/21/2025 9:00 AM COMMAND AND CONTROL Office Visit [address] [phone] Neil Kent MD [address] [place] [address] [phone] 10/09/2025 10:45 AM CDT Virtual Visit [facility] Gastroenterology [address] 4th [place] [phone] Meredith Carrera PAUcheC [address] [place] [address] 513535 documented as of this encounter Visit Diagnoses [...] Total Score: 4 06/20/20 23 8:40 AM COMMAND AND CONTROL documented as of this encounter Care Teams Plant Controls Specialist Relationship Specialty Start Date End Date Esha Grimm PA-C [address] [place] [phone] PCP - General Family Medicine 05/04/23 Diana Desir, [facility] 3033 [place], [place] 601756 Pharmacist Pharmacist 04/17/21 Rain Galaviz PA-C [address] [place] [address] [place] [address] Physician Pet Resort Concierge Dermatology 04/28/21 Tavia Wyatt MD [address] [place] [address] [place] [phone] Dermatology 07/14/21 Erica Farrell APRN NIP WRAPPER [address] [place] [phone] [place] 592085 Nurse Practitioner Cardiovascular Disease 09/09/21 Rich Barrett MD [address] [place] 106585 Physician Ophthalmology 01/21/22 Neil Kent MD 500 [place], [place] 962525 Dermatology 02/24/22 Diana Desir, [facility] 3033 [place], [place] 366436 Assigned [facility] Pharmacist 04/07/22 Livan Sharif MD [address] [place] [address] Cardiovascular Disease 05/14/22 Catherine Cm MD 6405 [facility] [address] 570745 Cardiovascular Disease 07/21/22 Valery Veronica, PA-C 909 [place], [place] 147465 Physician Pet Resort Concierge Dermatology 07/21/22 Brea Quinn APRN NIP WRAPPER 500 [place], [place] 612585 Nurse Practitioner Dermatology 09/21/22 Brea Quinn APRN NIP WRAPPER [address] [place] [address] [place] 539382 Assigned Surgical Provider 10/09/22 05/01/24 [place] [address] [address] [facility] 300 [place] [address] Assigned Musculoskeletal Provider 10/09/22 05/01/24 Alfonso Renteria MD [address] [facility] 200 [place], [place] 531546 Assigned Neuroscience Provider 04/02/23 09/29/24 Radha Lomeli APRN NIP WRAPPER 6405 [facility] [address] [place] [address] Assigned Heart and Vascular Provider 05/28/23 11/29/24 Jelena David OD [address] [facility] [place] [address] Ophthalmology 06/15/23 Pao Joseph, VJ Personal Advocate & Liaison (PAL) Nurse 08/01/23 11/07/23 Esha Grimm PA-C [address] [place] [phone] Assigned PCP 07/16/23 Valery Veronica PA-C [address] [place] [address] 011485 Physician Pet Resort Concierge Dermatology 09/19/23 Rey Tay MD [address] [place] [address] 519345 Gastroenterology 09/20/23 Rocky Zepeda DO [address] [place] [address] Physician Gastroenterology 09/20/23 Philip Dumont MD [address] [place] [address] Physician Ophthalmology 09/22/23 Meredith Carrera PA-C [address] [place] [address] Assigned Gastroenterology Provider 11/01/23 Neil Kent MD [address] [place] [address] MD Dermatology 11/02/23 [place] [address] [place] [address] Neurological Surgery 12/26/23 Audrey Waite PA-C [address] [place] [address] Physician Pet Resort Concierge Dermatology 02/28/24 Valery Veronica PA-C 558388 [address] [place] [address] Physician Pet Resort Concierge Dermatology 04/10/24 Herminia Hatch MD [facility]5 [place], [place] 56220125 Assigned Rheumatology Provider 07/02/24 Jelena David OD [address] [facility] [place] [address] Ophthalmology 08/30/24 [place] [address] [address] [facility] 300 [place] [address] Assigned Neuroscience Provider 09/30/24 Maru Man PA-C [address] [place] [address] Physician Pet Resort Concierge Dermatology 10/03/24 Maru Man PA-C [address] [place] [address] 496950 Physician Pet Resort Concierge Dermatology 10/22/24 Jelena David OD [address] [facility] [place] [address] Assigned Surgical Provider 10/31/24 Fabiano Correa, REPERTOIRE MANAGER [address] [place] [address]65 Assigned Heart and Vascular Provider 11/30/24 Walter Nowak MD [address] [place] [address] Physician Clinical Cardiac Electrophysiology 03/01/25 Liset Márquez MD [address] [facility] 300 [place] [address] game designer 03/13/25 Lauren Coronado, [facility] 909 [place], [place] 729825 Pharmacist Pharmacist 04/15/25 documented as of this encounter
--- OUTSIDE RECORDS SUMMARY | 2025-04-27 00:05 | XMS_ITS | Encounter Summary ---
Author Organization [place] Address [address] [place] [address] Care Team Providers Care Ammunition Storage Superintendent Name Role Phone Diana Desir [facility] Unavailable Rain GalavizC Unavailable Tavia Wyatt MD Unavailable [phone] Erica Farrell APRN TRANSIT MANAGER Unavailable Rich Barrett MD Unavailable [phone] Neil Kent MD Unavailable ThangKendrickDiana Stanislav [facility] Unavailable [phone] Livan Sharif MD Unavailable Catherine Cm MD Unavailable + Valery Veronica-C Unavailable [phone] Brea Quinn APRN TRANSIT MANAGER Unavailable Esha Grimm PA-C Primary Care Provider [phone] Jelena David OD Unavailable Esha Grimm PA-C Unavailable [phone] Valery Veronica PA-C Unavailable Rey Tay MD Unavailable Duane Rocky Unavailable Philip Dumont MD Unavailable [phone] Meredith Carrera PA-C Unavailable Neil Kent MD Unavailable Juan Pablo Emmanuel MD Unavailable Audrey Waite PA-C Unavailable Valery Veronica PA-C Unavailable [phone] Herminia Hatch MD Unavailable Jelena David [...] Contact Info) Description 01/16/2025 MyC Medical Advice [facility] Specialty [place] [address] [place] [phone] Herminia Hatch MD 1874 [place] [address] Social History Tobacco Use Types Packs/Day [...] Answer Date Recorded PHQ-2 Score 1 10/24/2024 [facility] [...] exercise at this level? 20 min 05/07/2024 [place] Depression Scale Answer Date Recorded [place] Depression Score 5 01/14/2021 Last EPDS Self [...] PM CDT Legal Sex Female 4:13 AM RESPIRATORY THERAPY INSTRUCTOR Gender Identity Female 03/02/2021 5:45 PM CDT Sexual Orientation Straight 02/28/2020 12 :51 AM CDT documented as of this encounter Plan of Treatment Upcoming Encounters Date Type Department Care Team (Late st Contact Info) Description 04/30/2025 10:30 AM CDT Office Visit [facility] [address], [address] [place] [address] Liset Márquez MD [address] [facility] 300 [place] [address] 05/30/2025 2:45 PM RESPIRATORY THERAPY INSTRUCTOR Office Visit [facility] 6405 [facility] [address] [place] [phone] Fabiano Correa NP 6405 [place], [place] 017825 Walter Nowak MD 6406 [place], [place] 305445 08/07/2025 8:15 AM RESPIRATORY THERAPY INSTRUCTOR Office Visit [facility] 6405 [facility] [address] [place] [phone] Lucien Grimes MD [address] 9563900 [place] 370205 08/21/2025 9:00 AM RESPIRATORY THERAPY INSTRUCTOR Office Visit [facility] [address] [address] Neil Kent MD 500 [place], [place] 807085 10/09/2025 10:45 AM CDT Virtual Visit [facility] Gastroenterology Clinic [address] 4th [place] [phone] Meredith Carrera PA-C [address] [place] [address] 165975 documented as of this encounter Visit Diagnoses Not on filedocumented in this encounter Additional Health Concerns Assessment Noted Time PHQ-9 Depression Total Score: 5 10/25/19 25 10:38 AM CDT documented as of this encounter Care Teams Ammunition Storage Superintendent Relationship Specialty Start Date End Date Esha Grimm PA-C [address] [place] [address] PCP - General Family Medicine 05/04/23 Diana Desir, [facility] [address] [place] [address] Pharmacist Pharmacist 04/17/21 Rain Galaviz PA-C [address] [place] [address] DR [address] [facility] [place] [address] Physician Hardware Assembler Dermatology 04/28/21 Tavia Wyatt MD [address] [place] [address] [address] [place] [address] Dermatology 07/14/21 Erica Farrell APRN TRANSIT MANAGER [address] [place] [address] Nurse Practitioner Cardiovascular Disease 09/09/21 Rich Barrett MD [address] [place] [address] Physician Ophthalmology 01/21/22 Neil Kent MD 500 [place] [address] Dermatology 02/24/22 Diana Desir, [facility] [address] [place] [address] Assigned MTM Pharmacist 04/07/22 Livan Sharif MD [address] [facility] [address] [place] [address] Cardiovascular Disease 05/14/22 Catherine Cm MD [address] [place] [address] Cardiovascular Disease 07/21/22 Valery Veronica PA-C [address] [place] [address] 734315 Physician Hardware Assembler Dermatology 07/21/22 Brea Quinn APRN TRANSIT MANAGER [address] [place] [address] 003125 Nurse Practitioner Dermatology 09/21/22 Jelena David OD [address] [place] [address] [place] [address] Ophthalmology 06/15/23 Esha Grimm PA-C [address] [place] [address]365[address] Assigned PCP 07/16/23 Valery Veronica PA-C [address] [place] [address] 704855 Physician Hardware Assembler Dermatology 09/19/23 Rey Tay MD [address] [place] [address] 278295 Gastroenterology 09/20/23 Rocky Zepeda DO [address] [place] [address] [phone] Physician Gastroenterology 09/20/23 Philip Dumont MD 516 [place], [place] 167065 Physician Ophthalmology 09/22/23 Meredith Carrera PA-C [address] [place] [address] 027775 Assigned Gastroenterology Provider 11/01/23 Neil Kent MD [address] 948900 MD Dermatology 11/02/23 [place] [address] [place], [place] 608927 Neurological Surgery 12/26/23 Audrey Waite PA-C 500 [place], [place] 731345 Physician Hardware Assembler Dermatology 02/28/24 Valery Veronica PA-C 824097 99[place], [place] [address] Physician Hardware Assembler Dermatology 04/10/24 Herminia Hatch MD [facility]5 [place], [place] 14648125 Assigned Rheumatology Provider 07/02/24 [place] [address] [place] [address] [place] [address] Ophthalmology 08/30/24 [place] [address] [address] [facility] 300 [place] [address] Assigned Neuroscience Provider 09/30/24 Maru Man PA-C [address], [place] [address] Physician Hardware Assembler Dermatology 10/03/24 Maru Man PA-C [address], [place] [address] Physician Hardware Assembler Dermatology 10/22/24 Jelena David OD 3305 [facility] [place] [address] Assigned Surgical Provider 10/31/24 Fabiano [place], MARINE FIREMAN [address] [place] [address] Assigned Heart and Vascular Provider 11/30/24 Walter Nowak MD [address] [place] [address] Physician Clinical Cardiac Electrophysiology 03/01/25 Liset Márquez MD [address] [facility] 300 [place] [address] creative services producer 03/13/25 Lauren Coronado, [facility] 909 [place], [place] 263805 Pharmacist Pharmacist 04/15/25 documented as of this encounter
--- OUTSIDE RECORDS SUMMARY | 2025-04-27 00:05 | XMS_ITS | Encounter Summary ---
Author Organization [place] Address [address] [place] [address] Care Team Providers Care Steamboat Inspector Name Role Phone Diana Desir Stanislav [facility] Unavailable Rain Galaviz PA-C Unavailable [phone] Tavia Wyatt MD Unavailable Erica Farrell APRN ACADEMIC INTERN Unavailable Rich Barrett MD Unavailable [phone] Neil [place] MD Unavailable ThangKendrickDiana Stanislav [facility] Unavailable [phone] Livan Sharif MD Unavailable Catherine Cm MD Unavailable + Valery Veronica-C Unavailable Brea Quinn ZONING TECHNICIAN ACADEMIC INTERN Unavailable Esha Grimm PA-C Primary Care Provider Radha Lomeli APRN ACADEMIC INTERN Unavailable Jelena David OD Unavailable Esha Grimm PA-C Unavailable [phone] Valery Veronica PA-C Unavailable Rey Tay MD Unavailable Marimar Zepedashua Unavailable Philip Dumont MD Unavailable PinoMeredith paez PA-C Unavailable Neil [place] MD Unavailable Juan Pablo Emmanuel MD Unavailable Audrey Waite PA-C Unavailable Valery Veronica PA-C Unavailable Herminia Hatch MD Unavailable Jelena David OD Unavailable Juna Pablo Emmanuel MD Unavailable Maru Man PA-C Unavailable Maru Man PA-C Unavailable Jelena David OD Unavailable Fabiano Correa NP Unavailable Walter Nowak MD Unavailable Liset Márquez MD Unavailable Lauren Coronado [facility] Unavailable [phone] Reason for Visit * Reason Onset Date Comments Call Back 10/09/2024 Heart Monitor Encounter Details Date Type Department Care Team (Late st Contact Info) Description 10/09/2024 Telephone [facility] [address] [facility] [address] [place] [address] Livan Sharif MD [facility] [facility] [address] [place] [address] Call Back (Heart Monitor) Social History [...] Score 1 02/07/2024 [facility] [...] exercise at this level? 20 min 05/07/2024 Thornton Depression Scale Answer Date Recorded Thornton Depression Score 5 01/14/2021 Last EPDS Self [...] PM CDT Legal Sex Female 4:13 AM CHILDHOOD TEACHER Gender Identity Female 03/02/2021 5:45 PM CDT Sexual Orientation Straight 02/28/2020 12 :51 AM CDT documented as of this encounter Miscellaneous Notes * Telephone Encounter - Carley Myles RN - 10/10/2024 4:51 PM CDT Sent message to pt via [facility] regarding monitor and follow up plan. Carley ZABALA [facility] * Telephone Encounter [...] can certainly offer. Thanks! Rodrigo Correa APRN, ACADEMIC INTERN * Telephone Encounter - Mary Stapleton - 10/09/2024 1:57 PM CDT [facility] Call Center Phone Message May [...] Description 04/30/2025 10:30 AM CDT Office Visit [facility] [address], [address] [place] [address] Liset Márquez MD [address] [facility] 300 [place] [address] 05/30/2025 2:45 PM CHILDHOOD TEACHER Office Visit [facility] [address] [facility] [address] [place] [phone] Fabiano Correa NP 6405 [facility] [place] 5[address]65 Walter Nowak MD 5280 [place], [place] 339905 08/07/2025 8:15 AM CHILDHOOD TEACHER Office Visit [facility] [address] [facility] [address] [place] [phone] Lucien Grimes MD [address] [place] [address] 08/21/2025 9:00 AM CHILDHOOD TEACHER Office Visit [facility] [address] [phone] Neil [place] MD [address] [place] [address] 550765 10/09/2025 10:45 AM CDT Virtual Visit [facility] [address] 4th [place] [phone] Meredith Carrera PA-C [address] [place] [address] [phone] documented as of this encounter Visit Diagnoses [...] as of this encounter Care Teams Steamboat Inspector Relationship Specialty Start Date End Date Esha Grimm PA-C [address] [place] [phone] PCP - General Family Medicine 05/04/23 Diana Desir, [facility] [address] [facility] [place] [address] Pharmacist Pharmacist 04/17/21 Rain Galavzi PA-C [address] [place] [address] DR RAZO [facility] [place] [address] Physician Optometric Coordinator Dermatology 04/28/21 Tavia Wyatt MD [address] [place] [address] DR RAZO [facility] [place] [place] [address] Dermatology 07/14/21 Erica Farrell APRN ACADEMIC INTERN [address] [place] [address] Nurse Practitioner Cardiovascular Disease 09/09/21 Rich Barrett MD [address] [place] [address] Physician Ophthalmology 01/21/22 Neil [place] MD 500 [place], [place] [phone] Dermatology 02/24/22 Diana Desir, [facility] 3033 [place], [place] 124936 Assigned MTM Pharmacist 04/07/22 Livan Sharif MD [address] [place] [address] [place] 065395 Cardiovascular Disease 05/14/22 Catherine Cm MD [address] [address] [place], [place] 252045 Cardiovascular Disease 07/21/22 Valery Veornica PA-C [address] [place] [address] 552225 Physician Optometric Coordinator Dermatology 07/21/22 Brea Quinn APRN ACADEMIC INTERN 500 [place], [place] [phone] Nurse Practitioner Dermatology 09/21/22 Radha Lomeli APRN ACADEMIC INTERN [address] [place], [place] 739855 Assigned Heart and Vascular Provider 05/28/23 11/29/24 Jelena David OD 3305 [facility] [place] [address] Ophthalmology 06/15/23 Esha Grimm PA-C [address] [place] [phone] Assigned PCP 07/16/23 Valery Veronica PA-C 9 [place] [address] Physician Optometric Coordinator Dermatology 09/19/23 Rey Tay MD [address] [place] [address] MD Gastroenterology 09/20/23 Rocky Zepeda DO [address] [place] [address] Physician Gastroenterology 09/20/23 Philip Dumont MD [address] [place] [address] Physician Ophthalmology 09/22/23 Meredith Carrera PA-C [address] [place] [address] Assigned Gastroenterology Provider 11/01/23 Neil [place] MD [address] [address] Dermatology 11/02/23 [place] [address] [place] [address] 785017 Neurological Surgery 12/26/23 Audrey Waite PA-C [address] [place] [address] Physician Optometric Coordinator Dermatology 02/28/24 Valery Veronica PA-C [address]19 [address] [place] [address] Physician Optometric Coordinator Dermatology 04/10/24 Herminia Hatch MD [address] [place] [address] Assigned Rheumatology Provider 07/02/24 Jelena David OD [address] [place] [address] [place] [address] Ophthalmology 08/30/24 [place] [address] [place] [address] Assigned Neuroscience Provider 09/30/24 Maru Man PA-C [address] [place] [address] Physician Optometric Coordinator Dermatology 10/03/24 Maru Man PA-C [address] [place] [address] Physician Optometric Coordinator Dermatology 10/22/24 Jelena David OD [address] [place] [address] [place] [address] Assigned Surgical Provider 10/31/24 Fabiano Correa, BRY[place] [address] [place] 249645 Assigned Heart and Vascular Provider 11/30/24 Walter Nowak MD 6405 [place] 427145 Physician Clinical Cardiac Electrophysiology 03/01/25 Liset Márquez MD [address] [address] roving technician 03/13/25 Lauren Coronado, [facility] 9 [place] [address] Pharmacist Pharmacist 04/15/25 documented as of this encounter
--- OUTSIDE RECORDS SUMMARY | 2025-04-27 00:05 | XMS_ITS | Encounter Summary ---
Author Organization [place] Address [address] [place] [address] Care Team Providers Care Classification Officer Name Role Phone Diana Desir [facility] Unavailable [phone] Rain Galaviz PA-C Unavailable Tavia Wyatt MD Unavailable [phone] Erica Farrell APRN SCIENCE EDUCATION PROFESSOR Unavailable Rich Barrett MD Unavailable [phone] Neil [place] MD Unavailable Diana Desir [facility] Unavailable Livan Sharif MD Unavailable Catherine Cm MD Unavailable + Valery Veronica PA-C Unavailable Brea Quinn WELLNESS COORDINATOR SCIENCE EDUCATION PROFESSOR Unavailable Brea Quinn WELLNESS COORDINATOR SCIENCE EDUCATION PROFESSOR Unavailable Jose Francisco Johnson MD Unavailable Alfonso Renteria MD Unavailable [phone] Esha Grimm PA-C Primary Care Provider Lomeli, Radha E WELLNESS COORDINATOR SCIENCE EDUCATION PROFESSOR Unavailable [phone] Jelena David OD Unavailable [phone] Pao Joseph RN Unavailable Unavailable Esha Grimm Adam PA-C Unavailable [phone] Valery Veronica PA-C Unavailable Rey Tay MD Unavailable Rocky Zepeda DO Unavailable Philip Dumont MD Unavailable Meredith Carrera PA-C Unavailable [phone] Neil [place] MD Unavailable Juan Pablo Emmanuel MD Unavailable Audrey Waite PA-C Unavailable JeremíasValery damon PA-C Unavailable Herminia Hatch MD Unavailable Jelena David OD Unavailable Juan Pablo Emmanuel MD Unavailable Maru Man PA-C Unavailable Maru Man PA-C Unavailable Jelena David OD Unavailable Fabiano Correa NP Unavailable Walter Nowak MD Unavailable Liset Márquez MD Unavailable Lauren Coronado [facility] Unavailable [phone] Encounter Details Date Type Department Care Team (Late st Contact Info) Description 08/25/2023 [facility] G[facility]ology Clinic [address]th [place] [address] Marija Polanco, VJ Social History [...] Score 0 06/20/2023 [facility] [...] exercise at this level? 30 min 03/10/2023 Lott Depression Scale Answer Date Recorded Lott Depression Score 5 01/14/2021 Last EPDS Self [...] CDT Legal Sex Female 4:13 AM DATA PROCESSING SUPERVISOR Gender Identity Female 03/02/2021 5:45 PM CDT Sexual Orientation Straight 02/28/2020 12 :51 AM CDT documented as of this encounter Plan of Treatment Upcoming Encounters Date Type Department Care Team (Late st Contact Info) Description 04/30/2025 10:30 AM CDT Office Visit [facility] [place] [address], [address] [place] [address] Liset Márquez MD [address] [address] 05/30/2025 2:45 PM DATA PROCESSING SUPERVISOR Office Visit [facility] Heart [facility] [address] [phone] Fabiano Correa, MARKETING CONTENT SPECIALIST 6405 [place], [place] 532715 Walter Nowak MD 8067 [place], [place] 476445 08/07/2025 8:15 AM DATA PROCESSING SUPERVISOR Office Visit [facility] Heart [facility] [address] [phone] Lucien Grimes MD [address] 359[address] 08/21/2025 9:00 AM DATA PROCESSING SUPERVISOR Office Visit [address] [phone] Neil [place] MD [address] [place] [address] [phone] 10/09/2025 10:45 AM CDT Virtual Visit [facility] Gastroenterology [address] 4th [place] [phone] Meredith Carrera PAUcheC [address] [place] [address] 503055 documented as of this encounter Visit Diagnoses [...] Score: 4 06/20/20 23 8:40 AM DATA PROCESSING SUPERVISOR documented as of this encounter Care Teams Classification Officer Relationship Specialty Start Date End Date Esha Grimm PA-C [address] [place] [address] PCP - General Family Medicine 05/04/23 Diana Desir, [facility] 3033 [place], [place] 488706 Pharmacist Pharmacist 04/17/21 Rain Galaviz PA-C [address] [place] [address] [place] [address] Physician Special Inspector Dermatology 04/28/21 Tavia Wyatt MD [address] [place] [address] [place] [phone] Dermatology 07/14/21 Erica Farrell APRN SCIENCE EDUCATION PROFESSOR [address] [place] [phone] [place] 771365 Nurse Practitioner Cardiovascular Disease 09/09/21 Rich Barrett MD [address] [place] 181065 Physician Ophthalmology 01/21/22 Neil [place] MD 500 [place], [place] 142485 Dermatology 02/24/22 Diana Desir, [facility] 3033 [place], [place] 536046 Assigned [facility] Pharmacist 04/07/22 Livan Sharif MD [address] [place] [address] Cardiovascular Disease 05/14/22 Catherine Cm MD 6405 [facility] [address] 112[address] Cardiovascular Disease 07/21/22 Valery Veronica, PA-C 909 [place], [place] 307785 Physician Special Inspector Dermatology 07/21/22 Brea Quinn APRN SCIENCE EDUCATION PROFESSOR 500 [place], [place] 886095 Nurse Practitioner Dermatology 09/21/22 Brea Quinn APRN SCIENCE EDUCATION PROFESSOR [address] [place] [address] [place] 795052 Assigned Surgical Provider 10/09/22 05/01/24 [place] [address] [place] [facility] 300 [place] [address] Assigned Musculoskeletal Provider 10/09/22 05/01/24 Alfonso Renteria MD 5775 [facility] 200 [place], [place] 341206 Assigned Neuroscience Provider 04/02/23 09/29/24 Radha Lomeli APRN SCIENCE EDUCATION PROFESSOR 6405 [facility] [place] [address] [place] [address] Assigned Heart and Vascular Provider 05/28/23 11/29/24 Jelena David OD [address] [facility] [place] [address] Ophthalmology 06/15/23 Pao Joseph, VJ Personal Advocate & Liaison (PAL) Nurse 08/01/23 11/07/23 Esha Grimm PA-C [address] [place] [phone] Assigned PCP 07/16/23 Valery Veronica PA-C [address] [place] [address] 131015 Physician Special Inspector Dermatology 09/19/23 Rey Tay MD [address] [place] [address] 855685 Gastroenterology 09/20/23 Rocky Zepeda DO [address] [place] [address] Physician Gastroenterology 09/20/23 Philip Dumont MD [address] [place] [address] Physician Ophthalmology 09/22/23 Meredith Carrera PA-C [address] [place] [address] Assigned Gastroenterology Provider 11/01/23 Neil [place] MD [address] [place] [address] MD Dermatology 11/02/23 [place] [address] [place] [address] Neurological Surgery 12/26/23 Audrey Waite PA-C [address] [place] [address] Physician Special Inspector Dermatology 02/28/24 Valery Veronica PA-C [address]282 [address] [place] [address] Physician Special Inspector Dermatology 04/10/24 Herminia Hatch MD [facility] [place], [place] [phone] Assigned Rheumatology Provider 07/02/24 Jelena David OD [address] [facility] [place] [address] Ophthalmology 08/30/24 [place] [address] [place] [facility] 300 [place] [address] Assigned Neuroscience Provider 09/30/24 Maru Man PA-C [address] [place] [address] Physician Special Inspector Dermatology 10/03/24 Maru Man PA-C [address] [place] [address] 237700 Physician Special Inspector Dermatology 10/22/24 Jelena David OD [address] [facility] [place] [address] Assigned Surgical Provider 10/31/24 Fabiano Correa, MARKETING CONTENT SPECIALIST [address] [place] 896915 Assigned Heart and Vascular Provider 11/30/24 Walter Nowak MD [address] [place] [address] Physician Clinical Cardiac Electrophysiology 03/01/25 Liset Márquez MD [address] [facility] 300 [place] [address] half backer 03/13/25 Lauren Coronado, [facility] 909 [place], [place] 552025 Pharmacist Pharmacist 04/15/25 documented as of this encounter
--- OUTSIDE RECORDS SUMMARY | 2025-04-27 00:05 | XMS_ITS | Encounter Summary ---
Author Organization [place] Address [address] [place] [address] Care Team Providers Care Cylinder Devalver Name Role Phone Diana Desir Stanislav [facility] Unavailable Rain Galaviz PA-C Unavailable Tavia Wyatt MD Unavailable rEica Farrell APRN FILTRATION PLANT OPERATOR Unavailable Rich Barrett MD Unavailable [phone] Neil [place] MD Unavailable ThangKendrickDinaa Stanislav [facility] Unavailable [phone] Livan Sharif MD Unavailable Catherine Cm MD Unavailable + Valery Veronica-C Unavailable Brea Quinn TECHNICAL DEVELOPER FILTRATION PLANT OPERATOR Unavailable Esha Grimm PA-C Primary Care Provider Radha Lomeli APRN FILTRATION PLANT OPERATOR Unavailable Jelena David OD Unavailable [phone] Esha Grimm PA-C Unavailable [phone] Valery Veronica PA-C Unavailable Rey Tay MD Unavailable Rocky Zepeda DO Unavailable Philip Dumont MD Unavailable [phone] Meredith Carrera PA-C Unavailable Neil Kent [...] Contact Info) Description 10/11/2024 [facility] Medical Advice [address] [address] Diana Desir, [facility] 3031 [place] [address] Social History Tobacco Use Types [...] week 05/07/2024 How often do you attend [facility] or [facility] services? 1 to 4 [...] at this level? 20 min 05/07/2024 [place] Depression Scale Answer Date Recorded [place] Depression Score 5 01/14/2021 Last EPDS Self [...] CDT Legal Sex Female 4:13 AM MACHINE WIPER Gender Identity Female 03/02/2021 5:45 PM CDT Sexual Orientation Straight 02/28/2020 12 :51 AM CDT documented as of this encounter Plan of Treatment Upcoming Encounters Date Type Department Care Team (Late st Contact Info) Description 04/30/2025 10:30 AM CDT Office Visit [facility] [place] [address], [address] [place] [phone] Liset Márquez MD [address] [place] [address] 05/30/2025 2:45 PM MACHINE WIPER Office Visit [facility] Heart [facility] 6405 [facility] [address] [place] [phone] Fabiano Correa, BRYCE 6405 [place], [place] 406405 Walter Nowak MD [address] [facility] [address] [place], [place] 853375 08/07/2025 8:15 AM MACHINE WIPER Office Visit [facility] Heart [facility] 6[address] [facility] [address] [place] [phone] Lucien Grimes MD [address] [place] 4655000 [place] 349365 08/21/2025 9:00 AM MACHINE WIPER Office Visit [facility] [address] [phone] Neil [place] MD [address] [place] [address] 370945 10/09/2025 10:45 AM CDT Virtual Visit [facility] Gastroenterology Clinic [address] 4th [place] [phone] Meredith Carrera PA-C [address] [place] [address] 266995 documented as of this encounter Visit Diagnoses [...] as of this encounter Care Teams Cylinder Devalver Relationship Specialty Start Date End Date Esha Grimm PA-C [address] [place] [address] PCP - General Family Medicine 05/04/23 Diana Desir, [facility] 3033 [place] [address] Pharmacist Pharmacist 04/17/21 Rain Galaviz PA-C [address] [place] [address] [address] [facility] [place] [address] Physician Puffer Tender Dermatology 04/28/21 Tavia Wyatt MD [address] [place] [address] [address] [facility] [place] [address] Dermatology 07/14/21 Erica Farrell APRN FILTRATION PLANT OPERATOR [address] [place] [address] Nurse Practitioner Cardiovascular Disease 09/09/21 Rich Barrett MD [address] [place] [address] Physician Ophthalmology 01/21/22 Neil [place] MD 500 [place] [address] Dermatology 02/24/22 Diana Desir, [facility] 3033 [place] [address] Assigned MTM Pharmacist 04/07/22 Livan Sharif MD [address] [place] [address] [place], [place] 683895 Cardiovascular Disease 05/14/22 Catherine Cm MD [address] [address] [place], [place] 658665 Cardiovascular Disease 07/21/22 Valery Veronica PA-C 909 [place] [address] Physician Puffer Tender Dermatology 07/21/22 Brea Quinn APRN FILTRATION PLANT OPERATOR 500 [place] [address] Nurse Practitioner Dermatology 09/21/22 Radha Lomeli APRN FILTRATION PLANT OPERATOR [address] [place], [place] 834525 Assigned Heart and Vascular Provider 05/28/23 11/29/24 Jelena David OD [address] [facility] [place] [address] Ophthalmology 06/15/23 Esha Grimm PA-C [address] [place] [address] Assigned PCP 07/16/23 Valery Veronica PA-C [address] [place] [address] Physician Puffer Tender Dermatology 09/19/23 Rey Tay MD [address] [place] [address] MD Gastroenterology 09/20/23 Rocky Zepeda DO [address] [place] [address] 964355 Physician Gastroenterology 09/20/23 Philip Dumont MD [address] [place] [address] 871055 Physician Ophthalmology 09/22/23 Meredith Carrera PA-C [address] [place] [address] 895505 Assigned Gastroenterology Provider 11/01/23 Neil [place] MD [address] [address] Dermatology 11/02/23 [place] [address] [facility] [place] [address] Neurological Surgery 12/26/23 Audrey Waite PA-C [address] [place] [address] Physician Puffer Tender Dermatology 02/28/24 Valery Veronica PA-C [address] [place] [address] Physician Puffer Tender Dermatology 04/10/24 Herminia Hatch MD [address] [place] [address] Assigned Rheumatology Provider 07/02/24 Jelena David OD [address] [place] [address] [place] [address] Ophthalmology 08/30/24 [place] [address] [place] [address] Assigned Neuroscience Provider 09/30/24 Maru Man PA-C [address] [place] [address] Physician Puffer Tender Dermatology 10/03/24 Maru Man PA-C [address] [place] [address] Physician Puffer Tender Dermatology 10/22/24 Jelena David OD [address] [place] [address] [place] [address] Assigned Surgical Provider 10/31/24 Fabiano Correa NP [address] [place] 429985 Assigned Heart and Vascular Provider 11/30/24 Walter Nowak MD [address] [place] [address] Physician Clinical Cardiac Electrophysiology 03/01/25 Liset Márquez MD [address] [place] [address] retail sales merchandiser development 03/13/25 Lauren Coronado, [facility] [address] [place] [address] Pharmacist Pharmacist 04/15/25 documented as of this encounter
--- OUTSIDE RECORDS SUMMARY | 2025-04-27 00:05 | XMS_ITS | Encounter Summary ---
Author Organization [facility] Address [address] [place] [address] 24672 Care Team Providers Care Hydraulic Punch Press Operator Name Role Phone Diana Desir [facility] Unavailable Rain Galaviz PA-C Unavailable Tavia Wyatt MD Unavailable [phone] Erica Farrell APRN UNDERGROUND UTILITY LOCATOR Unavailable Rich Barrett MD Unavailable [phone] Neil Kent MD Unavailable Diana Desir [facility] Unavailable Livan Sharif MD Unavailable Catherine Cm MD Unavailable + Valery Veronica PA-C Unavailable Brea Quinn INSTRUCTOR TAP DANCING UNDERGROUND UTILITY LOCATOR Unavailable Brea Quinn INSTRUCTOR TAP DANCING UNDERGROUND UTILITY LOCATOR Unavailable Jose Francisco Johnson MD Unavailable Alfonso Renteria MD Unavailable [phone] Esha Grimm PA-C Primary Care Provider Lomeli, Radha E INSTRUCTOR TAP DANCING UNDERGROUND UTILITY LOCATOR Unavailable Jelena David OD Unavailable [phone] Pao Joseph RN Unavailable Unavailable Esha Grimm Adam PA-C Unavailable [phone] Valery Veronica PA-C Unavailable Rey Tay [...] Coronado [facility] Unavailable Encounter Details Date Type Department Care Team (Late st Contact Info) Description 08/31/2023 MyC Medical Advice M [facility] [address] [facility] [address] [place] [address] Amalia Reyes, VJ Social History [...] Answer Date Recorded PHQ-2 Score 0 06/20/2023 [facility] - Occupational Stress Questionnaire Answer [...] at this level? 30 min 03/10/2023 [place] Depression Scale Answer Date Recorded [place] Depression Score 5 01/14/2021 Last EPDS [...] PM CDT Legal Sex Female 4:13 AM LVN HOME HEALTH Gender Identity Female 03/02/2021 5:45 PM CDT Sexual Orientation Straight 02/28/2020 12 :51 AM CDT documented as of this encounter Plan of Treatment Upcoming Encounters Date Type Department Care Team (Late st Contact Info) Description 04/30/2025 10:30 AM CDT Office Visit [facility]'s [place] [address], [address] [place] [phone] Liset Márquez MD [address] [address] 05/30/2025 2:45 PM LVN HOME HEALTH Office Visit [facility] [address] [place] [phone] Fabiano Correa, SINGING WAITER OR WAITRESS 6405 [place], [place] 562575 Walter Nowak MD 2347 [place], [place] 304845 08/07/2025 8:15 AM LVN HOME HEALTH Office Visit [facility] [address] [phone] Lucien Grimes MD [address] 075445 08/21/2025 9:00 AM LVN HOME HEALTH Office Visit [facility] [address] [phone] Neil Kent MD [address] [place] [address] 634715 10/09/2025 10:45 AM CDT Virtual Visit [facility] Gastroenterology [address] 4th [place] [phone] Meredith Carrera PA-C [address] [place] [address] 312805 documented as of this encounter Visit Diagnoses [...] Depression Total Score: 4 06/20/20 8:40 AM LVN HOME HEALTH documented as of this encounter Care Teams Hydraulic Punch Press Operator Relationship Specialty Start Date End Date Esha Grimm PA-C [address] [place] [address] PCP - General Family Medicine 05/04/23 Diana Desir, [facility] 3033 [place], [place] 352446 Pharmacist Pharmacist 04/17/21 Rain Galaviz PA-C [address] [place] [address] ENMA [place]UTSON [address] Physician Projection Welding Machine Operator Dermatology 04/28/21 Tavia Wyatt MD [address] [place] [address] ENMA [place]UTSON [phone] Dermatology 07/14/21 Erica Farrell APRN UNDERGROUND UTILITY LOCATOR [address] [place] [phone] [place] 720695 Nurse Practitioner Cardiovascular Disease 09/09/21 Rich Barrett MD [address] 00 [place], [place] 6[address] Physician Ophthalmology 01/21/22 Neil Kent MD 500 [place], [place] 465055 Dermatology 02/24/22 Diana Desir, [facility] 3033 [place], [place] 533246 Assigned [place] Pharmacist 04/07/22 Livan Sharif MD [address] [place], [place] 620005 Cardiovascular Disease 05/14/22 Catherine Cm MD 6405 [facility] [address] 977075 Cardiovascular Disease 07/21/22 Valery Veronica, PA-C 909 [place], [place] 910745 Physician Projection Welding Machine Operator Dermatology 07/21/22 Brea Quinn APRN UNDERGROUND UTILITY LOCATOR 500 [place], [place] 558185 Nurse Practitioner Dermatology 09/21/22 Brea Quinn APRN UNDERGROUND UTILITY LOCATOR [address] [place] [address] [place] 637102 Assigned Surgical Provider 10/09/22 05/01/24 [place] [address] [place] [address] [place] [address] Assigned Musculoskeletal Provider 10/09/22 05/01/24 Alfonso Renteria MD [address] [email or web address] 200 [place], [place] 582746 Assigned Neuroscience Provider 04/02/23 09/29/24 Radha Lomeli APRN UNDERGROUND UTILITY LOCATOR [address] [facility] [address] [place] [address] Assigned Heart and Vascular Provider 05/28/23 11/29/24 Jelena David OD [address] [place] [address] Ophthalmology 06/15/23 Pao Joseph, VJ Personal Advocate & Liaison (PAL) Nurse 08/01/23 11/07/23 Esha Grimm PA-C [address] [place] [address] Assigned PCP 07/16/23 Valery Veronica PA-C [address] [place] [address] 022865 Physician Projection Welding Machine Operator Dermatology 09/19/23 Rey Tay MD [address] [place] [address] 525535 Gastroenterology 09/20/23 Rocky Zepeda DO [address] [place] [address] Physician Gastroenterology 09/20/23 Philip Dumont MD 6 [place] [address] Physician Ophthalmology 09/22/23 Meredith Carrera PA-C [address] [place] [address] Assigned Gastroenterology Provider 11/01/23 Neil Kent MD [address] [place] [address] MD Dermatology 11/02/23 [place] [address] [place] [email or web address] [place] [address] Neurological Surgery 12/26/23 Audrey Waite PA-C 500 [place] [address] Physician Projection Welding Machine Operator Dermatology 02/28/24 Valery Veronica PA-C 9[address]673 [address] [place] [address] Physician Projection Welding Machine Operator Dermatology 04/10/24 Herminia Hatch MD [address] [place] [address] [id number] Assigned Rheumatology Provider 07/02/24 [place] [address] [place] [address] ENMA K[place] [address] Ophthalmology 08/30/24 [place] [address] [place] [email or web address] 300 [place] [address] Assigned Neuroscience Provider 09/30/24 Maru Man PA-C [address] [address] Physician Projection Welding Machine Operator Dermatology 10/03/24 Maru Man PA-C [address] [place] [address] 870160 Physician Projection Welding Machine Operator Dermatology 10/22/24 Jelena David OD [address] [place] [address] Assigned Surgical Provider 10/31/24 Fabiano Correa, SINGING WAITER OR WAITRESS [address] [place] 526105 Assigned Heart and Vascular Provider 11/30/24 Walter Nowak MD [address] [place] [address] Physician Clinical Cardiac Electrophysiology 03/01/25 Liset Márquez MD [address] [facility] [[email or web address]] 300 [place] [address] solder making supervisor 03/13/25 Lauren Coronado, [facility] 9 [place], [place] 179525 Pharmacist Pharmacist 04/15/25 documented as of this encounter
--- OUTSIDE RECORDS SUMMARY | 2025-04-27 00:06 | XMS_ITS | Encounter Summary ---
Author Organization [facility] Address [address] [place] [address] Care Team Providers Care Forest Fire Prevention Specialist Name Role Phone Diana Desir [facility] Unavailable Rain GalavizC Unavailable Tavia Wyatt MD Unavailable [phone] Erica Farrell APRN DRY FINISHER Unavailable Rich Barrett MD Unavailable [phone] Neil Kent MD Unavailable ThangKendrickDiana Stanislav [facility] Unavailable Livan Sharif MD Unavailable Catherine Cm MD Unavailable + Valery Veronica-C Unavailable [phone] Brea Quinn APRN DRY FINISHER Unavailable [phone] Esha Grimm PA-C Primary Care Provider Jelena David OD Unavailable [phone] Esha Grimm PA-C Unavailable [phone] Valery Veronica PA-C Unavailable [phone] Rey Tay MD Unavailable Duane Rocky Unavailable Philip Dumont MD Unavailable Meredith Carrera PA-C Unavailable Neil Kent MD Unavailable Juan Pablo Emmanuel MD Unavailable Audrey Waite PA-C Unavailable Valery Veronica PA-C Unavailable Herminia Hatch MD Unavailable Jelena David OD Unavailable [phone] Juan Pablo Emmanuel MD Unavailable Maru Man PA-C Unavailable Maru Man PA-C Unavailable Jelena David OD Unavailable [phone] Fabiano Correa NP Unavailable Walter Nowak MD Unavailable Liset Márquez MD Unavailable Lauren Coronado [facility] Unavailable Encounter Details Date Type Department Care Team (Late st Contact Info) Description 01/16/2025 [facility] [address] [address] Diana Desir, [facility] 7[address] [place] [address] Social History Tobacco Use Types [...] exercise at this level? 20 min 05/07/2024 Orange Depression Scale Answer Date Recorded Orange Depression Score 5 01/14/2021 Last EPDS [...] CDT Legal Sex Female 4:13 AM SPACE SYSTEMS OPERATIONS CRAFTSMAN Gender Identity Female 03/02/2021 5:45 PM CDT Sexual Orientation Straight 02/28/2020 12 :51 AM CDT documented as of this encounter Plan of Treatment Upcoming Encounters Date Type Department Care Team (Late st Contact Info) Description 04/30/2025 10:30 AM CDT Office Visit [facility]'s [place] [address], [address] [place] [address] Liset Márquez MD [address] [place] [address] 05/30/2025 2:45 PM SPACE SYSTEMS OPERATIONS CRAFTSMAN Office Visit [facility] Heart [facility] 6405 [facility] [address] [place] [phone] Fabiano Correa, RBYCE 6405 [place], [place] 122195 Walter Nowak MD 8276 [place], [place] 322365 08/07/2025 8:15 AM SPACE SYSTEMS OPERATIONS CRAFTSMAN Office Visit [facility] 6[address] [facility] [address] [place] [address] Lucien Grimes MD [address] [place] 9740300 [place], [place] 8[address]365 08/21/2025 9:00 AM SPACE SYSTEMS OPERATIONS CRAFTSMAN Office Visit [facility] [address] [address] Neil Kent MD 500 [place], [place] 074365 10/09/2025 10:45 AM CDT Virtual Visit [facility] Gastroenterology Clinic [address] 4th [place] [address] Meredith Carrera PA-C [address] [place] [address] 721655 documented as of this encounter Visit Diagnoses Not on filedocumented in this encounter Additional Health Concerns Assessment Noted Time PHQ-9 Depression Total Score: 5 10/25/19 25 10:38 AM CDT documented as of this encounter Care Teams Forest Fire Prevention Specialist Relationship Specialty Start Date End Date Esha Grimm PA-C [address] [facility] [place] [address] PCP - General Family Medicine 05/04/23 Diana Desir, [facility] 3033 [place] [address] Pharmacist Pharmacist 04/17/21 Rain Galaviz PA-C [address] [place] [address] [address] [facility] [place] [address] Physician Manager Garden Dermatology 04/28/21 Tavia Wyatt MD [address] [place] [address] [address] [place] [address] Dermatology 07/14/21 Erica Farrell APRN DRY FINISHER [address] [place] [address] Nurse Practitioner Cardiovascular Disease 09/09/21 Rich Barrett MD [address] [place] [address] Physician Ophthalmology 01/21/22 Neil Kent MD 500 [place], [place] 674585 Dermatology 02/24/22 Diana Desir, [facility] 30[address] [place] [address] Assigned MTM Pharmacist 04/07/22 Livan Sharif MD [address] [facility] [address] [place] [address] Cardiovascular Disease 05/14/22 Catherine Cm MD [address] [place] [address] Cardiovascular Disease 07/21/22 Valery Veronica PA-C [address] [place] [address] 373125 Physician Manager Garden Dermatology 07/21/22 Brea Quinn APRN DRY FINISHER [address] [place] [address] 465495 Nurse Practitioner Dermatology 09/21/22 Jelena David OD [address] [place] [address] [place] [address] Ophthalmology 06/15/23 Esha Grimm PA-C [address] [place] [address] Assigned PCP 07/16/23 Valery Veronica PA-C [address] [place] [address] 377845 Physician Manager Garden Dermatology 09/19/23 Rey Tay MD [address] [place] [address] 126385 Gastroenterology 09/20/23 Rocky Zepeda DO [address] [place] [address] 390335 Physician Gastroenterology 09/20/23 Philip Dumont MD 516 [place], [place] 428095 Physician Ophthalmology 09/22/23 Meredith Carrera PA-C [address] [place] [address] 132925 Assigned Gastroenterology Provider 11/01/23 Neil Kent MD [address] 753670 MD Dermatology 11/02/23 [place] [address] [address] [facility] [place], [place] 808057 Neurological Surgery 12/26/23 Audrey Waite PA-C 500 [place], [place] 336405 Physician Manager Garden Dermatology 02/28/24 Valery Veronica PA-C [address] [place] [address] Physician Manager Garden Dermatology 04/10/24 Herminia Hatch MD 1875 [place], [place] 64294125 Assigned Rheumatology Provider 07/02/24 Jelena David OD [address] [facility] [place] [address] Ophthalmology 08/30/24 [place] [address] [address] [facility] 300 [place] [address] Assigned Neuroscience Provider 09/30/24 Maru Man PA-C [address] [place], [place] [address] Physician Manager Garden Dermatology 10/03/24 Maru Man PA-C [address] [place] [address] 931570 Physician Manager Garden Dermatology 10/22/24 Jelena David OD [address] [facility] [place] [address] Assigned Surgical Provider 10/31/24 Fabiano Correa, TAR LEVELER [address] [place] [address] Assigned Heart and Vascular Provider 11/30/24 Walter Nowak MD [address] [place] [address] Physician Clinical Cardiac Electrophysiology 03/01/25 Liset Márquez MD [address] [facility] 300 [place] [address] support manager 03/13/25 Lauren Coronado, [facility] 909 [place], [place] 908635 Pharmacist Pharmacist 04/15/25 documented as of this encounter
--- OUTSIDE RECORDS SUMMARY | 2025-04-27 00:06 | XMS_ITS | Encounter Summary ---
Author Organization [facility] Address [address] [place] [address] Care Team Providers Care Deputy Sheriff Generalist Name Role Phone Diana Desir [facility] Unavailable [phone] Rain GalavizC Unavailable [phone] Tavia Wyatt MD Unavailable [phone] Erica Farrell APRN MOTOR CHECKER Unavailable Rich Barrett MD Unavailable [phone] Neil Kent MD Unavailable ThangKendrickDiana Stanislav [facility] Unavailable Livan Sharif MD Unavailable Catherine Cm MD Unavailable + Valery Veronica-C Unavailable Brea Quinn APRN MOTOR CHECKER Unavailable Esha Grimm PA-C Primary Care Provider [phone] Jelena David OD Unavailable Esha Grimm PA-C Unavailable [phone] Valery Veronica PA-C Unavailable [phone] Rey Tay MD Unavailable DuaneRocky Unavailable Philip Dumont MD Unavailable Meredith Carrera PA-C Unavailable Neil Kent MD Unavailable Juan Pablo Emmanuel MD Unavailable [phone] Audrey Waite PA-C Unavailable Valery Veronica PA-C Unavailable [phone] Herminia Hatch MD Unavailable Jelena David OD Unavailable [phone] Juan Pablo Emmanuel MD Unavailable [phone] Maru Man PA-C Unavailable Maru Man PA-C Unavailable Jelena David OD Unavailable Fabiano Correa NP Unavailable Walter Nowak MD Unavailable Liset Márquez MD Unavailable Lauren Coronado [facility] Unavailable Reason for Referral * CV Testing (Routine) - Pending Review Specialty Diagnoses / Procedures Referred By Contparviz t Referred To Contact Diagnoses SVT (supraventricular tachycardia) Procedures ZIO PATCH MAIL OUT Fbaiano Correa NP [address] [place] [address] Phone: tel: fax: Referral ID Status Reason Start Date Expiration Date V isits Requested Visits Authorized [id number] Pending Review 01/14/2025 01/14/2026 1 1 Encounter Details Date Type Department Care Team (Late st Contact Info) Description 01/14/2025 MyC Medical Advice [facility] Heart [facility] [address] [place] [address] [address] [place] [address] Fabiano Correa, MARKETING PROGRAM MANAGER [address] [place] [address] SVT (supraventricular tachycardia) (Primary Dx) Social History Tobacco Use Types [...] Answer Date Recorded PHQ-2 Score 1 10/24/2024 [facility] Occupat ional Health - Occupational Stress [...] PM CDT Legal Sex Female 4:13 AM SQUEEGEE TENDER Gender Identity Female 03/02/2021 5:45 PM CDT Sexual Orientation Straight 02/28/2020 12 :51 AM CDT documented as of this encounter Plan of Treatment Upcoming Encounters Date Type Department Care Team (Late st Contact Info) Description 04/30/2025 10:30 AM CDT Office Visit [facility] [address] Fl[address], [address] [place] [employer] [place] [phone] Liset Márquez MD [address] [place] [address] 05/30/2025 2:45 PM SQUEEGEE TENDER Office Visit [facility] Heart [place] [address] [phone] Fabiano Correa, BRYCE 6405 [place], [place] 214465 Walter Nowak MD 3207 [place], [place] 900785 08/07/2025 8:15 AM SQUEEGEE TENDER Office Visit [place] [address] [phone] Lucien Grimes MD [address] 307735 08/21/2025 9:00 AM SQUEEGEE TENDER Office Visit [facility] [address] [phone] Neil Kent MD 500 [place], [place] 640085 10/09/2025 10:45 AM CDT Virtual Visit [facility] Gastroenterology Clinic [address] [place] [address] Meredith Carrera PA-C [address] [place] [address] documented as of this encounter Results * ZIO PATCH MAIL OUT (01/29/2025 11:17 [...] (supraventricular tachycardia)- Primary Other specified cardiac dysrhythmias SVT (supraventricular tachycardia) Other specified cardiac dysrhythmias documented in this encounter Additional Health Concerns Assessment Noted Time PHQ-9 Depression Total Score: 5 10/25/19 25 10:38 AM CDT documented as of this encounter Care Teams Deputy Sheriff Generalist Relationship Specialty Start Date End Date Esha Grimm PA-C [address] [place] [address] PCP - General Family Medicine 05/04/23 Diana Desir, [facility] [place] [address] Pharmacist Pharmacist 04/17/21 Rain Galaviz PA-C [address] [place] [address] [address] [place] [address] Physician Acquisitions Librarian Dermatology 04/28/21 Tavia Wyatt MD [address] [place] [address] [address] [place] [address] Dermatology 07/14/21 Erica Farrell APRN [facility] [address] [place] [address] Nurse Practitioner Cardiovascular Disease 09/09/21 Rich Barrett MD [address] [place] [address] Physician Ophthalmology 01/21/22 Neil Kent MD 500 [place] [address] Dermatology 02/24/22 Diana Desir, [facility] 3033 [place] [address] Assigned [place] Pharmacist 04/07/22 Livan Sharif MD 6405 [facility] [address] [place] 7866800 [place] [address] Cardiovascular Disease 05/14/22 Catherine Cm MD [address] [place] 7248200 [place] [address] Cardiovascular Disease 07/21/22 Valery Veronica PA-C [address] [place] [address] 188155 Physician Acquisitions Librarian Dermatology 07/21/22 Brea Quinn APRN MOTOR CHECKER [address] [place] [address] 199605 Nurse Practitioner Dermatology 09/21/22 Jelena David OD [address] [place] [address] [place] [address] Ophthalmology 06/15/23 Esha Grimm PA-C [address] [place] [address] Assigned PCP 07/16/23 Valery Veronica PA-C [address] [place] [address] 426505 Physician Acquisitions Librarian Dermatology 09/19/23 Rey Tay MD [address] [place] [address] 114375 MD Gastroenterology 09/20/23 Rocky Zepeda DO [address] [place] [address] 064725 Physician Gastroenterology 09/20/23 Philip Dumont MD [address] [place] [address] Physician Ophthalmology 09/22/23 Meredith Carrera PA-C [address] [place] [address] 591075 Assigned Gastroenterology Provider 11/01/23 Neil Kent MD [address] [address] MD Dermatology 11/02/23 [place] [address] [place] [address] 400507 Neurological Surgery 12/26/23 Audrey Waite PA-C 500 [place] [address] Physician Acquisitions Librarian Dermatology 02/28/24 Valery Veronica PA-C 562304 [place] [address] Physician Acquisitions Librarian Dermatology 04/10/24 Herminia Hatch MD [facility]5 [place] [address] Assigned Rheumatology Provider 07/02/24 Jelena David OD [address] [place] [address] Ophthalmology 08/30/24 [place] [address] [place] [address] Assigned Neuroscience Provider 09/30/24 Maru Man PA-C [address] [place] [address] Physician Acquisitions Librarian Dermatology 10/03/24 Maru Man PA-C [address] [place] [address] Physician Acquisitions Librarian Dermatology 10/22/24 Jelena David, SONJA [address] [place] [address] Assigned Surgical Provider 10/31/24 Fabiano Correa, BRYCE [address] [place] [address] Assigned Heart and Vascular Provider 11/30/24 Walter Nowak MD [address] [place] [address] Physician Clinical Cardiac Electrophysiology 03/01/25 Liset Márquez MD [address] [address] health plan manager 03/13/25 Lauren Coronado, [facility] [address] [place] [address] 995115 Pharmacist Pharmacist 04/15/25 documented as of this encounter
--- OUTSIDE RECORDS SUMMARY | 2025-04-27 00:06 | XMS_ITS | Encounter Summary ---
Author Organization [place] Address [address] [place] [address] Care Team Providers Care Qm Consultant Name Role Phone Diana Desir [facility] Unavailable [phone] Rain Galaviz PA-C Unavailable Tavia Wyatt MD Unavailable [phone] Erica Farrell APRN TIN DIPPER Unavailable Rich Barrett MD Unavailable [phone] Neil Kent MD Unavailable Diana Desir [facility] Unavailable Livan Sharif MD Unavailable Catherine Cm MD Unavailable + Valery Veronica PA-C Unavailable Brea Quinn WIDE AREA NETWORK ENGINEER TIN DIPPER Unavailable [phone] Brea Quinn WIDE AREA NETWORK ENGINEER TIN DIPPER Unavailable [phone] Jose Francisco Johnson MD Unavailable Alfonso Renteria MD Unavailable [phone] Esha Grimm PA-C Primary Care Provider Lomeli, Radha E WIDE AREA NETWORK ENGINEER TIN DIPPER Unavailable Jelena David OD Unavailable [phone] Pao Joseph RN Unavailable Unavailable Esha Grimm PA-C Unavailable [phone] Valery Veronica PA-C Unavailable Rey Tay MD Unavailable Rocky Zepeda DO Unavailable Philip Dumont MD Unavailable Meredith Carrera PA-C Unavailable [phone] Neil Kent MD Unavailable Juan Pablo [...] [facility] Unavailable Encounter Details Date Type Department Care Team (Late st Contact Info) Description 08/10/2023 [facility] [address] [place] [phone] Esha Grimm PA-C [id number] [place] [phone] Social History Tobacco Use Types Packs/Day Years [...] do you attend [facility] or orthodoxy services? 1 to 4 [...] exercise at this level? 30 min 03/10/2023 Bradner Depression Scale Answer Date Recorded Bradner Depression Score 5 01/14/2021 Last EPDS Self [...] CDT Legal Sex Female 4:13 AM OFFICE SYSTEM ANALYST Gender Identity Female 03/02/2021 5:45 PM CDT Sexual Orientation Straight 02/28/2020 12 :51 AM CDT documented as of this encounter Miscellaneous Notes * Telephone Encounter - Asiya Reddy RN - 08/10/2023 11:40 AM OFFICE SYSTEM ANALYST Esha- see TeleFlipt message below. Patient did call to see if E-Visit would be addressed today. No immediate concern at this time. Advised UC if needed sooner. Asiya Reddy RN CE SYSTEM ANALYST documented in this encounter Plan of Treatment Upcoming Encounters Date Type Department Care Team (Late st Contact Info) Description 04/30/2025 10:30 AM CDT Office Visit [facility] [address], [address] [place] [phone] Liset Márquez MD [address] [facility] 300 [place] [address] 05/30/2025 2:45 PM OFFICE SYSTEM ANALYST Office Visit [place] [address] [phone] Fabiano Correa, [employer] 6405 [place], [place] 469465 Walter Nowak MD 3732 [place], [place] 068275 08/07/2025 8:15 AM OFFICE SYSTEM ANALYST Office Visit [facility] [address] [phone] Lucien Grimes MD [address] 639345 08/21/2025 9:00 AM OFFICE SYSTEM ANALYST Office Visit [facility] [address] [phone] Neil Kent MD [address] [place] [address] 10/09/2025 10:45 AM CDT Virtual Visit [facility] [address] 4th [place] [phone] Meredith Carrera PA-C [address] [place] [address] [phone] documented as of this encounter Visit Diagnoses [...] Score: 4 06/20/20 23 8:40 AM OFFICE SYSTEM ANALYST documented as of this encounter Care Teams Qm Consultant Relationship Specialty Start Date End Date Esha Grimm PA-C [address] [place] [phone] PCP - General Family Medicine 05/04/23 Diana Desir [facility] 3033 [place] [address] Pharmacist Pharmacist 04/17/21 Rain Galaviz PA-C [address] [place] [address] [address] [place] [address] Physician Movie Operator Dermatology 04/28/21 Tavia Wyatt MD [address] [place] [address] [address] [place] [address] Dermatology 07/14/21 Erica Farrell APRN TIN DIPPER [address] [place], [place] 147385 Nurse Practitioner Cardiovascular Disease 09/09/21 Rich Barrett MD [address] [place], [place] 413455 Physician Ophthalmology 01/21/22 Neil Kent MD [address] [place] [address] 574975 Dermatology 02/24/22 Diana Desir, [facility] 3033 [place], [place] 178686 Assigned [place] Pharmacist 04/07/22 Livan Sharif MD [address] [place], [place] 967185 Cardiovascular Disease 05/14/22 Catherine Cm MD [address] [place], [place] 876335 Cardiovascular Disease 07/21/22 Valery Veronica PA-C 909 [place] [address] Physician Movie Operator Dermatology 07/21/22 Brea Quinn APRN TIN DIPPER 500 [place] [address] Nurse Practitioner Dermatology 09/21/22 Brea Quinn APRN TIN DIPPER 6401 [place] [address] Assigned Surgical Provider 10/09/22 05/01/24 [place] [address] [place] [address] Assigned Musculoskeletal Provider 10/09/22 05/01/24 Alfonso Renteria MD 5775 [facility] 200 [place], [place] 440456 Assigned Neuroscience Provider 04/02/23 09/29/24 Radha Lomeli APRN TIN DIPPER 6405 [facility] [address] [place], [place] 739645 Assigned Heart and Vascular Provider 05/28/23 11/29/24 Jelena David OD [address] [facility] [place] [address] Ophthalmology 06/15/23 Pao Joseph, VJ Personal Advocate & Liaison (PAL) Nurse 08/01/23 11/07/23 Esha Grimm, PA-C [address] [place] [phone] Assigned PCP 07/16/23 Valery Veronica PA-C 9 [place], [place] 945455 Physician Movie Operator Dermatology 09/19/23 Rey Tay MD [address] [place] [address] MD Gastroenterology 09/20/23 Rocky Zepeda DO [address] [place] [address] 894075 Physician Gastroenterology 09/20/23 Philip Dumont MD [address] [place] [address] 993545 Physician Ophthalmology 09/22/23 Meredith Carrera PA-C [address] [place] [address] 975825 Assigned Gastroenterology Provider 11/01/23 Neil Kent MD [address] [address] Dermatology 11/02/23 [place] [address] [address] Neurological Surgery 12/26/23 Audrey Waite PA-C [address] [place] [address] Physician Movie Operator Dermatology 02/28/24 Valery Veronica PA-C [address] [place] [address] Physician Movie Operator Dermatology 04/10/24 Herminia Hathc MD [address] [place] [address] Assigned Rheumatology Provider 07/02/24 Jelena David OD [address] [place] [address] [place] [address] Ophthalmology 08/30/24 [place] [address] [place] [address] Assigned Neuroscience Provider 09/30/24 Maru Man PA-C [address] [place] [address] Physician Movie Operator Dermatology 10/03/24 Maru Man PA-C [address] [place] [address] Physician Movie Operator Dermatology 10/22/24 Jelena David OD [address] [place] [address] [place] [address] Assigned Surgical Provider 10/31/24 Fabiano Correa NP [address] [place] 873225 Assigned Heart and Vascular Provider 11/30/24 Walter Nowak MD 6405 [place] 843185 Physician Clinical Cardiac Electrophysiology 03/01/25 Liset Márquez MD [address] [place] [address] pricing strategist 03/13/25 Lauren Coronado, [facility] [address] [place] [address] Pharmacist Pharmacist 04/15/25 documented as of this encounter
--- OUTSIDE RECORDS SUMMARY | 2025-04-27 00:06 | XMS_ITS | Encounter Summary ---
Author Organization [place] Address [address] [place] [address] Care Team Providers Care Associate Project Manager Name Role Phone Diana Desir [facility] Unavailable Rain Galaviz PA-C Unavailable Tavia Wyatt MD Unavailable [phone] Erica Farrell APRN RN CORONARY CARE UNIT Unavailable Rich Barrett MD Unavailable [phone] Neil Kent MD Unavailable Diana Desir [facility] Unavailable Livan Sharif MD Unavailable Catherine Cm MD Unavailable + Valery Veronica PA-C Unavailable Brea Quinn STRATEGY ANALYST RN CORONARY CARE UNIT Unavailable Brea Quinn STRATEGY ANALYST RN [facility]ON[facility] CARE UNIT Unavailable Jose Francisco Johnson MD Unavailable Alfonso Renteria MD Unavailable [phone] Esha Grimm PA-C Primary Care Provider Lomeli, Radha E STRATEGY ANALYST RN [facility]ONARY CARE UNIT Unavailable Jelena David OD Unavailable [phone] Pao Joseph RN Unavailable Unavailable Esha Grimm Adam PA-C Unavailable Valery Veronica [...] Unavailable Liset Márquez MD Unavailable Lauren Coronado [facility] Unavailable Encounter Details Date Type Department Care Team (Late st Contact Info) Description 08/11/2023 MyC Medical Advice [address] [address] Pao Joseph, RN Social History [...] Score 0 06/20/2023 [facility] [...] at this level? 30 min 03/10/2023 Putnam Depression Scale Answer Date Recorded Putnam Depression Score 5 01/14/2021 Last EPDS Self [...] CDT Legal Sex Female 4:13 AM DIRECTOR [place] Gender Identity Female 03/02/2021 5:45 PM CDT Sexual Orientation Straight 02/28/2020 12 :51 AM CDT documented as of this encounter Plan of Treatment Upcoming Encounters Date Type Department Care Team (Late st Contact Info) Description 04/30/2025 10:30 AM CDT Office Visit [facility] [address], [address] [place] [address] Liset Márquez MD [address] [address] 05/30/2025 2:45 PM DIRECTOR [place] Office Visit [facility] [address] [phone] Fabiano Correa, CODE CLERK 6405 [place], [place] 703995 Walter Nowak MD 2837 [place], [place] 406315 08/07/2025 8:15 AM DIRECTOR [place] Office Visit [facility] [address] [phone] Lucien Grimes MD [address] [phone] 08/21/2025 9:00 AM DIRECTOR [place] Office Visit [facility] [address] [phone] Neil Kent MD [address] [place] [address] 981385 10/09/2025 10:45 AM CDT Virtual Visit [facility] Gastroenterology [address] 4th [place] [phone] Meredith Carrera PA-C [address] [place] [address] 846445 documented as of this encounter Visit Diagnoses [...] Score: 4 06/20/20 23 8:40 AM DIRECTOR [place] documented as of this encounter Care Teams Associate Project Manager Relationship Specialty Start Date End Date Esha Grimm PA-C [address] [place] [phone] PCP - General Family Medicine 05/04/23 Diana Desir, [facility] 3033 [place], [place] 727916 Pharmacist Pharmacist 04/17/21 Rain Galaviz PA-C [address] [place] [address] [place] [address] Physician Golf Professional Dermatology 04/28/21 Tavia Wyatt MD [address] [place] [address] [place] [phone] Dermatology 07/14/21 Erica Frarell APRN RN CORONARY CARE UNIT [address] [place] 9081800 [place] 158845 Nurse Practitioner Cardiovascular Disease 09/09/21 Rich Barrett MD [address] [place], [place] 129275 Physician Ophthalmology 01/21/22 Neil Kent MD 500 [place], [place] 302695 Dermatology 02/24/22 Diana Desir, [facility] 3033 [place], [place] 399756 Assigned [place] Pharmacist 04/07/22 Livan Sharif MD [address] [facility]00 [place], [place] 352715 Cardiovascular Disease 05/14/22 Catherine Cm MD 6405 [facility] [address] 759315 Cardiovascular Disease 07/21/22 Valery Veronica, PA-C 909 [place], [place] 395605 Physician Golf Professional Dermatology 07/21/22 Brea Quinn APRN RN COR[facility]ARY CARE UNIT 500 [place], [place] 087255 Nurse Practitioner Dermatology 09/21/22 Brea Quinn APRN RN [facility]ONARY C[facility] UNIT [address] [place] [address] [place] [id number] Assigned Surgical Provider 10/09/22 05/01/24 [place] [address] [facility] 300 [place] [address] Assigned Musculoskeletal Provider 10/09/22 05/01/24 Alfonso Renteria MD 5775 [facility] 200 [place], [place] 070216 Assigned Neuroscience Provider 04/02/23 09/29/24 Radha Lomeli APRN RN CORONARY CARE UNIT 6405 [facility] [address] [place] [address] Assigned Heart and Vascular Provider 05/28/23 11/29/24 Jelena David OD [address] [facility] [place] [address] Ophthalmology 06/15/23 Pao Joseph, RN Personal Advocate & Liaison (PAL) Nurse 08/01/23 11/07/23 Esha Grimm PA-C [address] [place] [phone] Assigned PCP 07/16/23 Valery Veronica PA-C [address] [place] [address] Physician Golf Professional Dermatology 09/19/23 Rey Tay MD [address] [place] [address] 979105 Gastroenterology 09/20/23 Rocky Zepeda DO [address] [place] [address] Physician Gastroenterology 09/20/23 Philip Dumont MD [address] [place] [address] Physician Ophthalmology 09/22/23 Meredith Carrera PA-C [address] [place] [address] Assigned Gastroenterology Provider 11/01/23 Neil Kent MD [address] [place] [address] 022860 MD Dermatology 11/02/23 [place] [address] [facility] [place] [address] Neurological Surgery 12/26/23 Audrey Waite PA-C [address] [place] [address] Physician Golf Professional Dermatology 02/28/24 Valery Veronica PA-C 69[address]85 [address] [place] [address] Physician Golf Professional Dermatology 04/10/24 Herminia Hatch MD [address] [place] [address] [phone] Assigned Rheumatology Provider 07/02/24 Jelena David OD [address] [place] [address] [place] [address] Ophthalmology 08/30/24 [place] [address] [facility] 300 [place] [address] Assigned Neuroscience Provider 09/30/24 Maru Man PA-C [address] [place] [address] Physician Golf Professional Dermatology 10/03/24 Maru Man PA-C [address] [place] [address] 394370 Physician Golf Professional Dermatology 10/22/24 Jelena David OD [address] [facility] [place] [address] Assigned Surgical Provider 10/31/24 Fabaino Correa, BRYCE [address] [place] 577635 Assigned Heart and Vascular Provider 11/30/24 Walter Nowak MD [address] [place] [address] Physician Clinical Cardiac Electrophysiology 03/01/25 Liset Márquez MD [address] [facility] 300 [place] [address] forensic ballistics expert 03/13/25 Lauren Coronado, [facility] 909 [place], [place] 541295 Pharmacist Pharmacist 04/15/25 documented as of this encounter
--- OUTSIDE RECORDS SUMMARY | 2025-04-27 00:06 | XMS_ITS | Encounter Summary ---
Author Organization [place] Address [address] [place] [address] Care Team Providers Care Road Crossing Guard Name Role Phone Diana Desir Stanislav [facility] Unavailable Rain Galaviz PA-C Unavailable [phone] Tavia Wyatt MD Unavailable Erica Farrell APRN PROFESSIONAL BUILDER Unavailable Rich Barrett MD Unavailable [phone] Neil Kent MD Unavailable ThangKendrickDiana Stanislav [facility] Unavailable [phone] Livan Sharif MD Unavailable Catherine Cm MD Unavailable + Valery Veronica-C Unavailable Brea Quinn ORTHOPEDIC SURGEON PROFESSIONAL BUILDER Unavailable Esha Grimm PA-C Primary Care Provider Radha Lomeli APRN PROFESSIONAL BUILDER Unavailable Jelena David OD Unavailable Esha Grimm PA-C Unavailable [phone] Valery Veronica PA-C Unavailable Rey Tay MD Unavailable Rocky Zepeda DO Unavailable Philip Dumont MD Unavailable Meredith Carrera PA-C Unavailable Neil Kent MD Unavailable Juan Pablo Emmanuel MD Unavailable Audrey Waite PA-C Unavailable Valery Veronica PA-C Unavailable [phone] Herminia Hatch MD Unavailable Jelena David OD Unavailable Juan Pablo Emmanuel MD Unavailable Maru Man PA-C Unavailable Maru Man PA-C Unavailable Jelena David OD Unavailable Fabiano Correa NP Unavailable Walter Nowak MD Unavailable Liset Márquez MD Unavailable Lauren Coronado [facility] Unavailable Encounter Details Date Type Department Care Team (Late st Contact Info) Description 10/10/2024 MyC Medical Advice [facility] Heart [address] [address] Carley Myles, RN Social History [...] exercise at this level? 20 min 05/07/2024 Bartley Depression Scale Answer Date Recorded Bartley Depression Score 5 01/14/2021 Last EPDS Self [...] PM CDT Legal Sex Female 4:13 AM DOCK HAND Gender Identity Female 03/02/2021 5:45 PM CDT Sexual Orientation Straight 02/28/2020 12 :51 AM CDT documented as of this encounter Plan of Treatment Upcoming Encounters Date Type Department Care Team (Late st Contact Info) Description 04/30/2025 10:30 AM CDT Office Visit [facility] [address], [address] [facility] [place] [phone] Liset Márquez MD [address] [place] [address] 05/30/2025 2:45 PM DOCK HAND Office Visit [facility] Heart [facility] [address] [place] [address] [place] [phone] Fabiano Correa NP 6405 [place], [place] 988065 Walter Nowak MD 6401 [place], [place] 412685 08/07/2025 8:15 AM DOCK HAND Office Visit [facility] [address] [place] [address] [place] [phone] Lucien Grimes MD [address] 923325 08/21/2025 9:00 AM DOCK HAND Office Visit [facility] [address] [phone] Neil Kent MD [address] [place] [address] 10/09/2025 10:45 AM CDT Virtual Visit [facility] Gastroenterology [address] 4th [place] [phone] Meredith Carrera PA-C [address] [place] [address] documented as of this encounter Visit Diagnoses [...] as of this encounter Care Teams Road Crossing Guard Relationship Specialty Start Date End Date Esha Grimm PA-C [address] [place] [phone] PCP - General Family Medicine 05/04/23 Diana Desir, [facility] [address] [place] [address] Pharmacist Pharmacist 04/17/21 Rain Galaviz PA-C [address] [place] [address] [place] [address] Physician Geography Faculty Member Dermatology 04/28/21 Tavia Wyatt MD [address] [place] [address] [address] [place] [address] Dermatology 07/14/21 Erica Farrell APRN PROFESSIONAL BUILDER [address] [place] [address] Nurse Practitioner Cardiovascular Disease 09/09/21 Rich Barrett MD [address] [place] 947665 Physician Ophthalmology 01/21/22 Neil eKnt MD 500 [place], [place] 187105 Dermatology 02/24/22 Diana Desir, [facility] 3033 [place], [place] 524016 Assigned MTM Pharmacist 04/07/22 Livan Sharif MD [address] [place] 644615 Cardiovascular Disease 05/14/22 Catherine Cm MD [address] [address] [place] 032605 Cardiovascular Disease 07/21/22 Valery Veronica, PA-C 909 [place], [place] 819875 Physician Geography Faculty Member Dermatology 07/21/22 Brea Quinn APRN PROFESSIONAL BUILDER 500 [place], [place] 302335 Nurse Practitioner Dermatology 09/21/22 Radha Lomeli APRN PROFESSIONAL BUILDER [address] [place], [place] 491455 Assigned Heart and Vascular Provider 05/28/23 11/29/24 Jelena David OD [address] [place] [address] Ophthalmology 06/15/23 Esha Grimm PA-C [address] [place] [address]377[address] Assigned PCP 07/16/23 Valery Veronica PA-C [address] [place] [address] Physician Geography Faculty Member Dermatology 09/19/23 Rey Tay MD [address] [place] [place] [address] MD Gastroenterology 09/20/23 Rocky Zepeda DO [address] [place] [place] [address] Physician Gastroenterology 09/20/23 Philip Dumont MD [address] [place] [address] Physician Ophthalmology 09/22/23 Meredith Carrera PA-C [address] [place] [place] [address] Assigned Gastroenterology Provider 11/01/23 Neil Kent MD [address] [address] Dermatology 11/02/23 [place] [address] [place] [address] [address] Neurological Surgery 12/26/23 Audrey Waite PA-C [address] [place] [address] 553625 Physician Geography Faculty Member Dermatology 02/28/24 Valery Veronica PA-C 045466 [address] [place] [address] 227769 Physician Geography Faculty Member Dermatology 04/10/24 Herminia Hatch MD [address] [place] [address] [phone] Assigned Rheumatology Provider 07/02/24 Jelena David OD [address] [place] [address] Ophthalmology 08/30/24 [place] [address] [place] [address] Assigned Neuroscience Provider 09/30/24 Maru Man PA-C [address] [place] [address] Physician Geography Faculty Member Dermatology 10/03/24 Maru Man PA-C [address] [place] [address] Physician Geography Faculty Member Dermatology 10/22/24 Jelena David OD [address] [place] [address] Assigned Surgical Provider 10/31/24 Fabiano Correa, SUPERVISOR PERSONNEL CLERKS [address] [place] 350655 Assigned Heart and Vascular Provider 11/30/24 Walter Nowak MD [address] [place] [address] Physician Clinical Cardiac Electrophysiology 03/01/25 Liset Márquez MD [address] [place] [address] logistics/shipper 03/13/25 Lauren Coronado, [facility] [address] [place] [address] Pharmacist Pharmacist 04/15/25 documented as of this encounter
--- OUTSIDE RECORDS SUMMARY | 2025-04-27 00:06 | XMS_ITS | Encounter Summary ---
Author Organization [place] Address [address] [place] [address] Care Team Providers Care Improvement Analyst Name Role Phone Diaan Desir [facility] Unavailable Rain Galaviz PA-C Unavailable Tavia Wyatt MD Unavailable [phone] Erica Farrell APRN SEED SPECIALIST Unavailable Rich Barrett MD Unavailable [phone] Neil Kent MD Unavailable Diana Desir [facility] Unavailable Livan Sharif MD Unavailable Catherine Cm MD Unavailable + Valery Veronica PA-C Unavailable Brea Quinn INSULATION CUPOLA CHARGER SEED SPECIALIST Unavailable [phone] Brea Quinn INSULATION CUPOLA CHARGER SEED SPECIALIST Unavailable Jose Francisco Johnson MD Unavailable Alfonso Renteria MD Unavailable [phone] Esha Grimm PA-C Primary Care Provider Lomeli, Radha E INSULATION CUPOLA CHARGER SEED SPECIALIST Unavailable Jelena David OD Unavailable [phone] Pao Joseph RN Unavailable Unavailable Esha Grimm Adam PA-C Unavailable [phone] Valery Veronica PA-C Unavailable [phone] Rey Tay MD Unavailable Rocky Zepeda DO Unavailable Philip Dumont MD Unavailable Meredith Carrera PA-C Unavailable [phone] Neil Kent MD Unavailable Juan Pablo Emmanuel MD Unavailable Audrey Waite PA-C Unavailable JeremíasValery damon PA-C Unavailable Herminia Hatch MD Unavailable Jelena David OD Unavailable Juan Pablo Emmanuel MD Unavailable Maru Man PA-C Unavailable Maru Man PA-C Unavailable Jelena David OD Unavailable Fabiano Correa NP Unavailable Walter Nowak MD Unavailable Liset Márquez MD Unavailable Lauren Coronado [facility] Unavailable Encounter Details Date Type Department Care Team (Late st Contact Info) Description 08/04/2023 [facility] [address] [address] Diana Desir, [facility] [address] [place] [address] Social History Tobacco Use Types Packs/Day Years [...] you attend [facility] or yazidism services? 1 to 4 [...] 0 06/20/2023 [facility] of Occupat ional [...] Answer Date Recorded Do you have housing? (aJyain g is defined as stable permanent housing [...] CDT Legal Sex Female 4:13 AM JOB COST ESTIMATOR Gender Identity Female 03/02/2021 5:45 PM CDT Sexual Orientation Straight 02/28/2020 12 :51 AM CDT documented as of this encounter Plan of Treatment Upcoming Encounters Date Type Department Care Team (Late st Contact Info) Description 04/30/2025 10:30 AM CDT Office Visit [facility] [address], [address] [place] [phone] Liset Márquez MD [address] [facility] 300 [place] [address] 05/30/2025 2:45 PM JOB COST ESTIMATOR Office Visit [facility] 6405 [facility] [address] [place] [phone] Fabiano Correa, TRANSITION ASSISTANT 6405 [place], [place] 590415 Walter Nowak MD 2665 [place], [place] 783235 08/07/2025 8:15 AM JOB COST ESTIMATOR Office Visit [facility] 6405 [facility] [address] [place] [address] [phone] Lucien Grimes MD [address] 052365 08/21/2025 9:00 AM JOB COST ESTIMATOR Office Visit [facility] [address] [phone] Neil Kent MD 500 [place], [place] 008695 10/09/2025 10:45 AM CDT Virtual Visit [facility] [place] 909 [facility] 4th [place] [phone] Meredith Carrera PA-C [address] [place] [address] 517205 documented as of this encounter Visit Diagnoses [...] Total Score: 4 06/20/20 23 8:40 AM JOB COST ESTIMATOR documented as of this encounter Care Teams Improvement Analyst Relationship Specialty Start Date End Date Esha Grimm PA-C [address] [place] [phone] PCP - General Family Medicine 05/04/23 Diana Desir, [facility] [address] [place] [address] Pharmacist Pharmacist 04/17/21 Rain Galaviz PA-C [address] [place] [address] [place] KNUTSON [address] Physician Medical Oncology Physician Dermatology 04/28/21 Tavia Wyatt MD [address] [place] [address] EN[place] KNUTSON [address] Dermatology 07/14/21 StoErica pereira APRN SEED SPECIALIST [address] [place] 925845 Nurse Practitioner Cardiovascular Disease 09/09/21 Rcih Barrett MD [address] [place] 625915 Physician Ophthalmology 01/21/22 Neil Kent MD 500 [place], [place] 744935 Dermatology 02/24/22 Diana Desir, [facility] 3033 [place], [place] 737226 Assigned [facility] Pharmacist 04/07/22 Livan Sharif MD [address] [place] 234155 Cardiovascular Disease 05/14/22 Catherine Cm MD [address] [place] 485205 Cardiovascular Disease 07/21/22 Valery Veronica, PA-C 909 [place], [place] 623675 Physician Medical Oncology Physician Dermatology 07/21/22 Brea Quinn APRN SEED SPECIALIST 500 [place], [place] 767205 Nurse Practitioner Dermatology 09/21/22 Brea Quinn APRN SEED SPECIALIST [address] [facility] [place] [address] Assigned Surgical Provider 10/09/22 05/01/24 [place] [address] 300 [place] [address] Assigned Musculoskeletal Provider 10/09/22 05/01/24 Alfonso Renteria MD [address] 200 [place], [place] 805066 Assigned Neuroscience Provider 04/02/23 09/29/24 Radha Lomeli APRN SEED SPECIALIST 6405 [facility] [address] [place] [address] Assigned Heart and Vascular Provider 05/28/23 11/29/24 Jelena David, SONJA 3[address] [facility] [place] [address] Ophthalmology 06/15/23 Pao Joseph, VJ Personal Advocate & Liaison (PAL) Nurse 08/01/23 11/07/23 Esha Grimm PA-C [address] [place] [phone] Assigned PCP 07/16/23 Valery Veronica PA-C [address] [place] [address] 396335 Physician Medical Oncology Physician Dermatology 09/19/23 Rey Tay MD 9 [place], [place] 819925 MD Gastroenterology 09/20/23 Rocky Zepeda DO [address] [place] [address] 978705 Physician Gastroenterology 09/20/23 Philip Dumont MD [address] [place] [address] Physician Ophthalmology 09/22/23 Meredith Carrera PA-C [address] [place] [address] 318435 Assigned Gastroenterology Provider 11/01/23 Neil Kent MD [address] [place] [address] 339890 Dermatology 11/02/23 [place] [address] 468167 Neurological Surgery 12/26/23 Audrey Waite PA-C [address] [place] [address] Physician Medical Oncology Physician Dermatology 02/28/24 Valery Veronica PA-C 594238 [place], [place] [address] Physician Medical Oncology Physician Dermatology 04/10/24 Herminia Hatch MD [facility] [place] [address] Assigned Rheumatology Provider 07/02/24 Jelena David OD [address] [place] [address] [place] [address] Ophthalmology 08/30/24 [place] [address] [address] 300 [place] [address] Assigned Neuroscience Provider 09/30/24 Maru Man PA-C [address] [place] [address] Physician Medical Oncology Physician Dermatology 10/03/24 Maru Man PA-C [address] [place] [address] Physician Medical Oncology Physician Dermatology 10/22/24 Jelena David OD [address] [place] [address] [place] [address] Assigned Surgical Provider 10/31/24 Fabiano Correa NP 6405 [place] [address] Assigned Heart and Vascular Provider 11/30/24 Walter Nowak MD 6405 [place] [address] Physician Clinical Cardiac Electrophysiology 03/01/25 Liset Márquez MD [address] 972544 aircraft inspection record clerk 03/13/25 Lauren Coronado, [facility] [address] [place] [address] [phone] Pharmacist Pharmacist 04/15/25 documented as of this encounter
--- OUTSIDE RECORDS SUMMARY | 2025-04-27 00:07 | XMS_ITS | Encounter Summary ---
Author Organization [place] Address [address] [place] [address] Care Team Providers Care Scheduling Representative Name Role Phone Diana Desir [facility] Unavailable Rain GalavizC Unavailable Tavia Wyatt MD Unavailable Erica Farrell APRN HAND SIGN WRITER Unavailable Rich Barrett MD Unavailable [phone] Neil Kent MD Unavailable DesirKendrickDiana Stanislav [facility] Unavailable [phone] Livan Sharif MD Unavailable Catherine Cm MD Unavailable + Valery Veronica-C Unavailable Brea Quinn SPLITTING MACHINE OPERATOR HAND SIGN WRITER Unavailable [phone] Alfonso Renteria MD Unavailable [phone] Esha GrimmC Primary Care Provider Radha Lomeli SPLITTING MACHINE OPERATOR HAND SIGN WRITER Unavailable Jelena David OD Unavailable [place], Esha M PA-C Unavailable [phone] Valery Veronica PA-C Unavailable Rey Tay MD Unavailable Rocky Zepeda DO Unavailable Philip Dumont MD Unavailable [phone] Meredith Carrera PA-C Unavailable [phone] Neil Kent MD Unavailable Juan Pablo Emmanuel MD Unavailable Audrey Waite PA-C Unavailable Valery Veronica PA-C Unavailable Herminia Hatch MD Unavailable Jelena David OD Unavailable Juan Pablo Emmanuel MD Unavailable Maru Man PA-C Unavailable Maru Man PA-C Unavailable Jelena David OD Unavailable Fabiano Correa NP Unavailable Walter Nowak MD Unavailable Liset Márquez MD Unavailable Lauren Coronado [facility] Unavailable [phone] Encounter Details Date Type Department Care Team (Late st Contact Info) Description 06/21/2024 [facility] [address] [address] Antonella Eldridge, RN Social History [...] attend [facility] or adventism services? 1 to 4 [...] Score 1 02/07/2024 [facility] [...] exercise at this level? 20 min 05/07/2024 Good[place] Depression Scale Answer Date Recorded Goodspring Depression Score 5 01/14/2021 Last EPDS Self [...] CDT Legal Sex Female 4:13 AM ELECTRONICS COMMODITY MANAGER Gender Identity Female 03/02/2021 5:45 PM CDT Sexual Orientation Straight 02/28/2020 12 :51 AM CDT documented as of this encounter Plan of Treatment Upcoming Encounters Date Type Department Care Team (Late st Contact Info) Description 04/30/2025 10:30 AM CDT Office Visit [facility] [place] [address], [address] 300 [place] [address] Liset Márquez MD [address] [facility] 300 [place], [place] 311014 05/30/2025 2:45 PM ELECTRONICS COMMODITY MANAGER Office Visit [facility] 6405 [facility] [address] [place] [phone] Fabiano Correa, TOXICOLOGY SUPERVISOR 6405 [place], [place] 320815 Walter Nowak MD 4079 [place], [place] 675925 08/07/2025 8:15 AM ELECTRONICS COMMODITY MANAGER Office Visit [facility] 6405 [facility] [address] [place] [phone] Lucien Grimes MD 640 [facility] [address] [place], [place] 7[address]425 08/21/2025 9:00 AM ELECTRONICS COMMODITY MANAGER Office Visit [address] [phone] Neil Kent MD [address] [place] [address] [phone] 10/09/2025 10:45 AM CDT Virtual Visit [facility] Gastroenterology Clinic [address] 4th [place] [phone] Meredith Carrera PA-C [address] [place] [address] documented as of this encounter Visit [...] Start Date End Date Esha Grimm PA-C [address] [place] [phone] PCP - General Family Medicine 05/04/23 Diana Desir, [facility] [address] [place] [address] Pharmacist Pharmacist 04/17/21 Rain Galaviz PA-C [address] [place] [address] [address] [facility] [place] [address] Physician Bundler Dermatology 04/28/21 Tavia Wyatt MD [address] [place] [address] [address] [facility] [address] Dermatology 07/14/21 Erica Farrell APRN HAND SIGN WRITER [address] [place] [address] Nurse Practitioner Cardiovascular Disease 09/09/21 Rich Barrett MD [address] [place] 744835 Physician Ophthalmology 01/21/22 Neil Kent MD 500 [place], [place] 577845 Dermatology 02/24/22 Diana Desir, [facility] 3033 [place], [place] 451916 Assigned MTM Pharmacist 04/07/22 Livan Sharif MD [address] [place] 812425 Cardiovascular Disease 05/14/22 Catherine Cm MD [address] [place], [place] 891585 Cardiovascular Disease 07/21/22 Valery Veronica PAUcheC 909 [place], [place] 639265 Physician Bundler Dermatology 07/21/22 Brea Quinn APRN HAND SIGN WRITER 500 [place], [place] 217675 Nurse Practitioner Dermatology 09/21/22 Alfonso Renteria MD 5775 [facility] 200 [place], [place] 491106 Assigned Neuroscience Provider 04/02/23 09/29/24 Radha Lomeli APRN HAND SIGN WRITER [address] [place], [place] 164495 Assigned Heart and Vascular Provider 05/28/23 11/29/24 Frankie Jelena Garcia, SONJA [address] [facility] [place] [address] Ophthalmology 06/15/23 Esha Grimm PA-C [address] [place] [phone] Assigned PCP 07/16/23 Valery Veronica PA-C [address] [place] [address] 847855 Physician Bundler Dermatology 09/19/23 Rey Tay MD [address] [place] [address] 666565 MD Gastroenterology 09/20/23 Rocky Zepeda DO [address] [place] [address] 288385 Physician Gastroenterology 09/20/23 Philip Dumont MD 6 [place], [place] 620605 Physician Ophthalmology 09/22/23 Meredith Carrera PA-C [address] [place] [address] 440125 Assigned Gastroenterology Provider 11/01/23 Neil Kent MD [address] [place] [address] 220270 Dermatology 11/02/23 [place] [address] [place] [address] Neurological Surgery 12/26/23 Audrey Waite PA-C 500 [place] [address] Physician Bundler Dermatology 02/28/24 Valery Veronica PA-C [address]92 [address] [place] [address] Physician Bundler Dermatology 04/10/24 Herminia Hatch MD [address] [place] [address] Assigned Rheumatology Provider 07/02/24 Jelena David OD [address] [place] [address] [place] K[place] [address] Ophthalmology 08/30/24 [place] [address] [place] [address] Assigned Neuroscience Provider 09/30/24 Maru Man PA-C [address] [place] [address] Physician Bundler Dermatology 10/03/24 Maru Man PA-C [address] [place] [address] Physician Bundler Dermatology 10/22/24 Jelena David OD [address] [place] [address] [place] K[place] [address] Assigned Surgical Provider 10/31/24 Fabiano Correa NP [address] [place] 605095 Assigned Heart and Vascular Provider 11/30/24 Walter Nowak MD 6405 [place] 346615 Physician Clinical Cardiac Electrophysiology 03/01/25 Liset Márquez MD [address] [facility] 300 [place], [place] 682134 oncology pharmacist 03/13/25 Lauren Coronado, [facility] 909 [place] [address] Pharmacist Pharmacist 04/15/25 documented as of this encounter
--- OUTSIDE RECORDS SUMMARY | 2025-04-27 00:07 | XMS_ITS | Encounter Summary ---
Author Organization [place] Address [address] [place] [address] Care Team Providers Care Kiln Labourer Name Role Phone Diana Desir [facility] Unavailable Rain Galaviz PA-C Unavailable Tavia Wyatt MD Unavailable [phone] Erica Farrell APRN RESTAURANT SHIFT LEADER Unavailable Rich Barrett MD Unavailable [phone] Neil Kent MD Unavailable Diana Desir [facility] Unavailable Livan Sharif MD Unavailable Catherine Cm MD Unavailable + Valery Veronica PA-C Unavailable [phone] Brea Quinn LICENSED APPRAISER RESTAURANT SHIFT LEADER Unavailable Brea Quinn LICENSED APPRAISER RESTAURANT SHIFT LEADER Unavailable Jose Francisco Johnson MD Unavailable Sydnie Martinez RN Unavailable Unavailable Alfonso Renteria MD Unavailable [phone] Esha Grimm PA-C Primary Care Provider Radha Lomeli APRN RESTAURANT SHIFT LEADER Unavailable Jelena David OD Unavailable [phone] Pao Joseph RN Unavailable Unavailable Esha Grimm Adam PA-C Unavailable [phone] Valery Veronica PA-C Unavailable Rey Tay [...] [facility] Unavailable [phone] Encounter Details Date Type Department Care Team (Late st Contact Info) Description 07/29/2023 [facility] [address] [address] Pao Joseph, RN Social History [...] Date Recorded PHQ-2 Score 0 06/20/2023 [facility] - Occupational Stress Questionnaire Answer [...] exercise at this level? 30 min 03/10/2023 [place] Depression Scale Answer Date Recorded [place] Depression Score 5 01/14/2021 Last EPDS Self [...] Description 04/30/2025 10:30 AM CDT Office Visit [facility] [place] [address] Fl[address], [address] [place] [address] Liset Márquez MD [address] [facility] 300 [place] [address] 05/30/2025 2:45 PM DIVER'S TENDER Office Visit [facility] [place] [facility] [address] [phone] Fabiano Correa, BRYCE 6405 [facility] [place] [place] 910905 Walter Nowak MD [address] [facility] [place], [place] 381775 08/07/2025 8:15 AM DIVER'S TENDER Office Visit [facility] [address] [phone] Lucien Grimes MD [address] 855915 08/21/2025 9:00 AM DIVER'S TENDER Office Visit [address] [phone] Neil Kent MD [address] [place] [address] [phone] 10/09/2025 10:45 AM CDT Virtual Visit [facility] Gastroenterology [address] 4th [place] [phone] Meredith Carrera PAUcheC [address] [place] [address] 864355 documented as of this encounter Visit Diagnoses [...] documented as of this encounter Care Teams Kiln Labourer Relationship Specialty Start Date End Date Esha Grimm PA-C [address] [place] [phone] PCP - General Family Medicine 05/04/23 Diana Desir, [facility] 3033 [place], [place] 549426 Pharmacist Pharmacist 04/17/21 Rain Galaviz PA-C [address] [place] [address] ENMA KNUTSON [address] Physician Mathematics Education Professor Dermatology 04/28/21 Tavia Wyatt MD [address] [place] [address] EN[place] KNUTSON [address] Dermatology 07/14/21 Erica Farrell APRN RESTAURANT SHIFT LEADER 6[address] [place] 2550100 [place] [address] Nurse Practitioner Cardiovascular Disease 09/09/21 Rich Barertt MD [address] [place] 347335 Physician Ophthalmology 01/21/22 Neil Kent MD 500 [place], [place] 633735 Dermatology 02/24/22 Diana Desir, [facility] 3033 [place], [place] 422056 Assigned [place] Pharmacist 04/07/22 Livan Sharif MD [address] [facility]00 [place] [address] Cardiovascular Disease 05/14/22 Catherine Cm MD 6405 [facility] [place] [address] [place] [address] Cardiovascular Disease 07/21/22 Valery Veronica, PA-C 909 [place], [place] 513435 Physician Mathematics Education Professor Dermatology 07/21/22 Brea Quinn APRN RESTAURANT SHIFT LEADER 500 [place], [place] 143015 Nurse Practitioner Dermatology 09/21/22 Brea Quinn APRN RESTAURANT SHIFT LEADER [address] [place] [address] [place] 425922 Assigned Surgical Provider 10/09/22 05/01/24 [place] [address] [place] [address] [place] [address] Assigned Musculoskeletal Provider 10/09/22 05/01/24 Sydnie Martinez RN Personal Advocate & Liaison (PAL) Family Medicine 03/28/23 07/31/23 Alfonso Renteria MD [address] 200 [place], [place] 396816 Assigned Neuroscience Provider 04/02/23 09/29/24 Radha Lomeli APRN RESTAURANT SHIFT LEADER 6405 [facility] [address] [place], [place] 539185 Assigned Heart and Vascular Provider 05/28/23 11/29/24 Jelena David OD [address] [facility] [place] [address] Ophthalmology 06/15/23 Pao Joseph, VJ Personal Advocate & Liaison (PAL) Nurse 08/01/23 11/07/23 Esha Grimm PA-C [address] [place] [phone] Assigned PCP 07/16/23 Valery Veronica PA-C 9 [place] [address] Physician Mathematics Education Professor Dermatology 09/19/23 Rey Tay MD 9 [place], [place] 02491455 Gastroenterology 09/20/23 Rocky Zepeda DO [address] [place] [address] 680245 Physician Gastroenterology 09/20/23 Philip Dumont MD [address] [place] [address] Physician Ophthalmology 09/22/23 Meredith Carrera PA-C [address] [place] [address] 529195 Assigned Gastroenterology Provider 11/01/23 Neil Kent MD [address] 369790 Dermatology 11/02/23 [place] [address] [place] [address] [address] Neurological Surgery 12/26/23 Audrey Waite PA-C 500 [place] [address] Physician Mathematics Education Professor Dermatology 02/28/24 Valery Veronica PA-C 877682 [place], [place] [address] Physician Mathematics Education Professor Dermatology 04/10/24 Herminia Hatch MD [facility]5 [place] [address] Assigned Rheumatology Provider 07/02/24 [place] [address] [place] [address] [place] [address] Ophthalmology 08/30/24 [place] [address] [address] [place] [address] Assigned Neuroscience Provider 09/30/24 Maru Man PA-C [address] [place] [address] Physician Mathematics Education Professor Dermatology 10/03/24 Maru Man PA-C [address] [place] [address] Physician Mathematics Education Professor Dermatology 10/22/24 Jelena David OD [address] [facility] [place] [address] Assigned Surgical Provider 10/31/24 Fabiano [place]rea, CHIEF OF FIELD OPERATIONS [address] [place] [address] Assigned Heart and Vascular Provider 11/30/24 Walter Nowak MD [address]405 [address] [address] Physician Clinical Cardiac Electrophysiology 03/01/25 Liset Márquez MD [address] 916644 counseling psychologist 03/13/25 Lauren Coronado, [facility] [address] [place] [address] [phone] Pharmacist Pharmacist 04/15/25 documented as of this encounter
--- OUTSIDE RECORDS SUMMARY | 2025-04-27 00:07 | XMS_ITS | Encounter Summary ---
Author Organization [place] Address [address] [place] [address] Care Team Providers Care Shellfish Harvester Name Role Phone Diana Desir Stanislav [facility] Unavailable Rain Galaviz PA-C Unavailable Tavia Wyatt MD Unavailable Erica Farrell APRN EXECUTIVE WELLNESS PROGRAMS DIRECTOR Unavailable Rich Barrett MD Unavailable [phone] Neil Kent MD Unavailable ThangKendrickDiana Stanislav [facility] Unavailable [phone] Livan Sharif MD Unavailable Catherine Cm MD Unavailable + Valery Veronica-C Unavailable [phone] Brea Quinn RESPIRATORY MEDICINE PHYSICIAN EXECUTIVE WELLNESS PROGRAMS DIRECTOR Unavailable Esha Grimm PA-C Primary Care Provider Radha Lomeli APRN EXECUTIVE WELLNESS PROGRAMS DIRECTOR Unavailable Jelena David OD Unavailable [phone] Esha Grimm PA-C Unavailable [phone] Valery Veronica PA-C Unavailable Rey Tay MD Unavailable Rocky Zepeda DO Unavailable Philip Dumont MD Unavailable Meredith Carrera PA-C Unavailable Neil Kent MD Unavailable Juan Pablo Emmanuel MD Unavailable Audrey Waite PA-C Unavailable Valery Veronica PA-C Unavailable Herminia Hatch MD Unavailable Jelena David OD Unavailable [phone] Juan Pablo Emmanuel MD Unavailable Maru Man PA-C Unavailable Maru Man PA-C Unavailable Jelena David OD Unavailable Fabiano Correa NP Unavailable Walter Nowak MD Unavailable Liset Márquez MD Unavailable Lauren Coronado [facility] Unavailable Encounter Details Date Type Department Care Team (Late st Contact Info) Description 10/01/2024 MyC Medical Advice [facility] Heart [address] [address] Marija Bailey, RN Social History [...] exercise at this level? 20 min 05/07/2024 [place] Depression Scale Answer Date Recorded [place] Depression Score 5 01/14/2021 Last EPDS Self [...] CDT Legal Sex Female 4:13 AM PLUMBING ENGINEER Gender Identity Female 03/02/2021 5:45 PM CDT Sexual Orientation Straight 02/28/2020 12 :51 AM CDT documented as of this encounter Plan of Treatment Upcoming Encounters Date Type Department Care Team (Late st Contact Info) Description 04/30/2025 10:30 AM CDT Office Visit [facility] Women's [facility] [address], [address] [place] [phone] Liset Márquez MD [address] 300 [place] [address] 05/30/2025 2:45 PM PLUMBING ENGINEER Office Visit [facility] Heart [facility] [address] 5417000 [place] [phone] Fabiano Correa NP [address]405 [place], [place] 561655 Walter Nowak MD 6409 [place], [place] 702105 08/07/2025 8:15 AM PLUMBING ENGINEER Office Visit [facility] [address] [address] [place] [phone] Lucien Grimes MD [address] 584335 08/21/2025 9:00 AM PLUMBING ENGINEER Office Visit [facility] [address] [phone] Neli Kent MD [address] [place] [address] 10/09/2025 10:45 AM CDT Virtual Visit [facility] Gastroenterology [address] 4th [place] [phone] Meredith Carrera PA-C [address] [place] [address] documented as of this encounter Visit Diagnoses [...] as of this encounter Care Teams Shellfish Harvester Relationship Specialty Start Date End Date Esha Grimm PA-C [address] [place] [address] PCP - General Family Medicine 05/04/23 Diana Desir, [facility] 3033 [place] [address] Pharmacist Pharmacist 04/17/21 Rain Galaviz PA-C [address] [place] [address] [address] [place] [address] Physician Wholesale Loan Processor Dermatology 04/28/21 Tavia Wyatt MD [address] [place] [address] [address] [place] [place] [address] Dermatology 07/14/21 Erica Farrell APRN EXECUTIVE WELLNESS PROGRAMS DIRECTOR [address] [place] [address] Nurse Practitioner Cardiovascular Disease 09/09/21 Rich Barrett MD [address] [place] [address] Physician Ophthalmology 01/21/22 Neil Kent MD 500 [place] [address] Dermatology 02/24/22 [facility] 3033 [place] [address] Assigned MTM Pharmacist 04/07/22 Livan Sharif MD [address] [place] [address] Cardiovascular Disease 05/14/22 Cahterine Cm MD [address] [place] [address] Cardiovascular Disease 07/21/22 Valery Veronica PA-C 909 [place] [address] Physician Wholesale Loan Processor Dermatology 07/21/22 Brea Quinn APRN EXECUTIVE WELLNESS PROGRAMS DIRECTOR 500 [place], [place] 232365 Nurse Practitioner Dermatology 09/21/22 Radha Lomeli APRN EXECUTIVE WELLNESS PROGRAMS DIRECTOR [address] [place], [place] 470105 Assigned Heart and Vascular Provider 05/28/23 11/29/24 Jelena David OD 3305 [facility] [place] [id number] Ophthalmology 06/15/23 Esha Grimm PAUcheC [address] [place] [phone] Assigned PCP 07/16/23 aVlery Veronica PA-C [address] [place] [address] Physician Wholesale Loan Processor Dermatology 09/19/23 Rey Tay MD [address] [place] [address] 780265 MD Gastroenterology 09/20/23 Rocky Zepeda DO [address] [place] [address] 084795 Physician Gastroenterology 09/20/23 Philip Dumont MD [address] [place] [address] 859595 Physician Ophthalmology 09/22/23 Meredith Carrera PA-C [address] [place] [address] 655655 Assigned Gastroenterology Provider 11/01/23 Neil Kent MD [address] [address] Dermatology 11/02/23 [place] [address] [address] Neurological Surgery 12/26/23 Audrey Waite PA-C [address] [place] [address] Physician Wholesale Loan Processor Dermatology 02/28/24 Valery Veronica PA-C [address] [facility] [place] [address] Physician Wholesale Loan Processor Dermatology 04/10/24 Herminia Hatch MD [address] [place] [address] Assigned Rheumatology Provider 07/02/24 Jelena David OD [address] [place] [address] [place] [address] Ophthalmology 08/30/24 [place] [address] [place] [address] Assigned Neuroscience Provider 09/30/24 Maru Man PA-C [address] [place] [address] Physician Wholesale Loan Processor Dermatology 10/03/24 Maru Man PA-C [address] [place] [address] Physician Wholesale Loan Processor Dermatology 10/22/24 Jelena David OD [address] [place] [address] [place] [address] Assigned Surgical Provider 10/31/24 Fabiano Correa NP 6405 [place] 901465 Assigned Heart and Vascular Provider 11/30/24 Walter Nowak MD 6405 [place] 392442 Physician Clinical Cardiac Electrophysiology 03/01/25 Liset Márquez MD [address] [place] [address] entry level truck driver 03/13/25 Lauren Coronado, [facility] [address] [place] [address] Pharmacist Pharmacist 04/15/25 documented as of this encounter
--- OUTSIDE RECORDS SUMMARY | 2025-04-27 00:07 | XMS_ITS | Encounter Summary ---
Author Organization [place] Address [address] [place] [address] Care Team Providers Care Crew Leader Name Role Phone Diana Desir [facility] Unavailable Rain Galaviz PA-C Unavailable Tavia Wyatt MD Unavailable [phone] Erica Farrell APRN HEEL FORMER Unavailable Rich Barrett MD Unavailable [phone] Neil Kent MD Unavailable Diana Desir [facility] Unavailable Livan Sharif MD Unavailable Catherine Cm MD Unavailable + Valery Veronica PA-C Unavailable Brea Quinn SAW EDGE FUSER CIRCULAR HEEL FORMER Unavailable Brea Quinn SAW EDGE FUSER CIRCULAR HEEL FORMER Unavailable Jose Francisco Johnson MD Unavailable Alfonso Renteria MD Unavailable [phone] Esha Grimm PA-C Primary Care Provider Lomeli, Radha E SAW EDGE FUSER CIRCULAR HEEL FORMER Unavailable Jelena David OD Unavailable [phone] Pao Joseph RN Unavailable Unavailable Esha Grimm PA-C Unavailable [phone] Valery Veronica PA-C Unavailable Rey Tay [...] [facility] Unavailable Reason for Visit * Reason Onset Date Comments Outreach 08/01/2023 Encounter Details Date Type Department Care Team (Late st Contact Info) Description 08/01/2023 [facility] [address] [address] Esha Grimm PA-C [address] [place] [phone] Outreach Social History Tobacco Use Types Packs/Day [...] PHQ-2 Score 0 06/20/2023 [facility] [place] of Occupat ional Health - Occupational Stress [...] exercise at this level? 30 min 03/10/2023 [place] Depression Scale Answer Date Recorded [place] Depression Score 5 01/14/2021 Last EPDS [...] CDT Legal Sex Female 4:13 AM CONTROL CLERK AUDITING Gender Identity Female 03/02/2021 5:45 PM CDT Sexual Orientation Straight 02/28/2020 12 :51 AM CDT documented as of this encounter Miscellaneous Notes * Telephone Encounter - Pao Joseph RN - 08/01/2023 2:31 PM CST Esha Grimm PA-C- ANGEL LUIS. See pt's [facility] [employer] messages. Routed to PCP Pao Marcos RN PAL (Patient Advocate Liaison) [facility] ROL CLERK AUDITING documented in this encounter Plan of Treatment Upcoming Encounters Date Type Department Care Team (Late st Contact Info) Description 04/30/2025 10:30 AM CDT Office Visit [facility] [address], [address] [place] [phone] Liset Márquez MD [address] [facility] 300 [place], [place] 024494 05/30/2025 2:45 PM CONTROL CLERK AUDITING Office Visit [facility] Heart [place] [id number] [phone] Fabiano Correa, BRYCE 6400 [place], [place] 313535 Walter Nowak MD 8287 [place], [place] 789805 08/07/2025 8:15 AM CONTROL CLERK AUDITING Office Visit [facility] [address] [address] Lucien Grimes MD [address] 1092500 [place], [place] 826615 08/21/2025 9:00 AM CONTROL CLERK AUDITING Office Visit [facility] [address] [phone] Neil Kent MD [address] [place] [address] 145145 10/09/2025 10:45 AM CDT Virtual Visit [facility] [address] 4th [place] [phone] Meredith Carrera PA-C [address] [place] [address] documented as of this encounter Visit Diagnoses [...] Total Score: 4 06/20/20 23 8:40 AM CONTROL CLERK AUDITING documented as of this encounter Care Teams Crew Leader Relationship Specialty Start Date End Date Esha Grimm PA-C [address] [place] [address] PCP - General Family Medicine 05/04/23 Diana Desir, [facility] [address] [place] [address] Pharmacist Pharmacist 04/17/21 Rain Galaviz PA-C [address] [place] [address] [address] [place] [address] Physician Donkey Doctor Dermatology 04/28/21 Tavia Wyatt MD [address] [place] [address] [address] [place] [address] Dermatology 07/14/21 Erica Farrell APRN HEEL FORMER [address] [place] 783485 Nurse Practitioner Cardiovascular Disease 09/09/21 Rich Barrett MD [address] [place] 184515 Physician Ophthalmology 01/21/22 Neil Kent MD 500 [place], [place] 102795 Dermatology 02/24/22 Diana Desir, [facility] 3033 [place], [place] 842306 Assigned MTM Pharmacist 04/07/22 Livan Sharif MD [address] [place] 312765 Cardiovascular Disease 05/14/22 Catherine Cm MD [address] [place] 593135 Cardiovascular Disease 07/21/22 Valery Veronica PA-C 909 [place] [address] Physician Donkey Doctor Dermatology 07/21/22 Brea Quinn APRN HEEL FORMER 500 [place] [address] Nurse Practitioner Dermatology 09/21/22 Brea Quinn APRN HEEL FORMER 6401 [place], [place] 630922 Assigned Surgical Provider 10/09/22 05/01/24 [place] [address] [facility] 300 [place], [place] 976387 Assigned Musculoskeletal Provider 10/09/22 05/01/24 Alfonso Renteria MD 5775 [facility] 200 [place], [place] 59576416 Assigned Neuroscience Provider 04/02/23 09/29/24 Radha Lomeli APRN HEEL FORMER [address] [facility] [address] [place] 743415 Assigned Heart and Vascular Provider 05/28/23 11/29/24 Jelena David OD [address] [facility] [address] [place] [phone] Ophthalmology 06/15/23 Pao Joseph, VJ Personal Advocate & Liaison (PAL) Nurse 08/01/23 11/07/23 Esha Grimm PA-C [address] [place] [address] Assigned PCP 07/16/23 Valery Veronica PA-C [address] [place] [address] Physician Donkey Doctor Dermatology 09/19/23 Rey Tay MD [address] [place] [address] MD Gastroenterology 09/20/23 Rocky Zepeda DO [address] [place] [address] 587615 Physician Gastroenterology 09/20/23 Philip Dumont MD [address] [place] [address] 503155 Physician Ophthalmology 09/22/23 Meredith Carrera PA-C [address] [place] [address] 269475 Assigned Gastroenterology Provider 11/01/23 Neil Kent MD [address] 282990 Dermatology 11/02/23 [place] [address] [place] [address] Neurological Surgery 12/26/23 Audrey Waite PA-C [address] [place] [address] Physician Donkey Doctor Dermatology 02/28/24 Valery Veronica PA-C [address] [facility] [address] Physician Donkey Doctor Dermatology 04/10/24 Herminia Hatch MD [address] [place] [address] [phone] Assigned Rheumatology Provider 07/02/24 Jelena David OD [address] [place] [address] [place] [address] Ophthalmology 08/30/24 [place] [address] [place] [address] Assigned Neuroscience Provider 09/30/24 Maru Man PA-C [address] [place] [address] Physician Donkey Doctor Dermatology 10/03/24 Maru Man PA-C [address] [place] [address] Physician Donkey Doctor Dermatology 10/22/24 Jelena David OD [address] [place] [address] [place] [address] Assigned Surgical Provider 10/31/24 Fabiano Correa NP 6405 [place] [address] Assigned Heart and Vascular Provider 11/30/24 Walter Nowak MD [address]405 [place] [address] Physician Clinical Cardiac Electrophysiology 03/01/25 Liset Márquez MD [address] [address] quill stripper 03/13/25 Lauren Coronado, [facility] [address] [place] [address] 523095 Pharmacist Pharmacist 04/15/25 documented as of this encounter
--- OUTSIDE RECORDS SUMMARY | 2025-04-27 00:07 | XMS_ITS | Encounter Summary ---
Author Organization [place] Address [address] [place] [address] Care Team Providers Care Rolling Machine Tender Name Role Phone Diana Desir [facility] Unavailable Rain Galaviz PA-C Unavailable Tavia Wyatt MD Unavailable Erica Farrell APRN CLAIMS ADMINISTRATOR Unavailable Rich Barrett MD Unavailable [phone] Neil Kent MD Unavailable Diana Desir [facility] Unavailable Livan Sharif MD Unavailable Catherine Cm MD Unavailable + Valery Veronica PA-C Unavailable [phone] Brea Quinn HARD CANDY BATCH MIXER CLAIMS ADMINISTRATOR Unavailable Brea Quinn HARD CANDY BATCH MIXER CLAIMS ADMINISTRATOR Unavailable [phone] Jose Francisco Johnson MD Unavailable Sydnie Martinez RN Unavailable Unavailable Alfonso Renteria MD Unavailable [phone] Esha Grimm PA-C Primary Care Provider [phone] Radha Lomeli APRN CLAIMS ADMINISTRATOR Unavailable Jelena David OD Unavailable [phone] Pao Joseph RN Unavailable Unavailable Esha Grimm Adam PA-C Unavailable [phone] Valery Veronica PA-C Unavailable Rey Tay [...] Unavailable Liset Márquez MD Unavailable Lauren Coronado [facility] Unavailable Encounter Details Date Type Department Care Team (Late st Contact Info) Description 07/27/2023 [facility] Medical [address] [address] [facility] 3033 [place] [address] Social History Tobacco Use Types Packs/Day Years [...] attend [facility]? 1 to 4 [...] PHQ-2 Score 0 06/20/2023 [facility] of Occupat ional Health - [...] exercise at this level? 30 min 03/10/2023 [place] Depression Scale Answer Date Recorded [place] Depression Score 5 01/14/2021 Last EPDS Self [...] PM CDT Legal Sex Female 4:13 AM RAIL CAR PAINTER/SANDBLASTER Gender Identity Female 03/02/2021 5:45 PM CDT Sexual Orientation Straight 02/28/2020 12 :51 AM CDT documented as of this encounter Plan of Treatment Upcoming Encounters Date Type Department Care Team (Taylor Contact Info) Description 04/30/2025 10:30 AM CDT Office Visit [facility] [address], [address] [place] [phone] Liset Márquez MD [address] [facility] 300 [place] [address] 05/30/2025 2:45 PM RAIL CAR PAINTER/SANDBLASTER Office Visit [facility] Heart [facility] 6405 [facility] [address] [place] [phone] Fabiano Correa, GENERAL ROAD SUPERVISOR 7855 [place], [place] 148545 Walter Nowak MD 7041 [place], [place] 070405 08/07/2025 8:15 AM RAIL CAR PAINTER/SANDBLASTER Office Visit [facility] Heart [facility] [address] [address] Lucien Grimes MD [address] 076105 08/21/2025 9:00 AM RAIL CAR PAINTER/SANDBLASTER Office Visit [facility] [address] [phone] Neil Kent MD 500 [place], [place] [phone] 10/09/2025 10:45 AM CDT Virtual Visit [facility] [place] 909 [facility] 4th [place] [phone] Meredith Carrera PA-C [address] [place] [address] documented as of this encounter Visit [...] 4 06/20/20 23 8:40 AM RAIL CAR PAINTER/SANDBLASTER documented as of this encounter Care Teams Rolling Machine Tender Relationship Specialty Start Date End Date Esha Grimm PA-C [address] [place] [address]83 PCP - General Family Medicine 05/04/23 Diana Desir, [facility] 3033 [place] [address] Pharmacist Pharmacist 04/17/21 Rain Galaviz PA-C [address] [place] [address] [address] [place] [address] Physician Education Professor Dermatology 04/28/21 Tavia Wyatt MD [address] [place] [address] [place] [address] Dermatology 07/14/21 Erica Farrell APRN CLAIMS ADMINISTRATOR [address] [place] [address] Nurse Practitioner Cardiovascular Disease 09/09/21 Rich Barrett MD [address] [place] 833705 Physician Ophthalmology 01/21/22 Neil Kent MD 500 [place], [place] 527935 MD Dermatology 02/24/22 Diana Desir, [facility] 30[address] [place], [place] 415446 Assigned [place] Pharmacist 04/07/22 Livan Sharif MD [address] [address] [place] 8[address]85 Cardiovascular Disease 05/14/22 Catherine Cm MD [address] [place] 492415 Cardiovascular Disease 07/21/22 Valery Veronica, PA-C 909 [place], [place] 303525 Physician Education Professor Dermatology 07/21/22 Brea Quinn APRN CLAIMS ADMINISTRATOR 500 [place], [place] 110795 Nurse Practitioner Dermatology 09/21/22 Brea Quinn APRN CLAIMS ADMINISTRATOR 6401 [facility] [place] [address] Assigned Surgical Provider 10/09/22 05/01/24 [place] [address] [place] [facility] 300 [place] [address] Assigned Musculoskeletal Provider 10/09/22 05/01/24 Sydnie Martinez RN Personal Advocate & Liaison (PAL) Family Medicine 03/28/23 07/31/23 Alfonso Renteria MD 5775 [facility] 200 [place] [address] Assigned Neuroscience Provider 04/02/23 09/29/24 Radha Lomeli APRN CLAIMS ADMINISTRATOR 6405 [facility] [address] [place] [address] Assigned Heart and Vascular Provider 05/28/23 11/29/24 Jelena David OD [address] [facility] [place] [address] Ophthalmology 06/15/23 Pao Joseph, VJ Personal Advocate & Liaison (PAL) Nurse 08/01/23 11/07/23 Esha Grimm PA-C [address] [place] [phone] Assigned PCP 07/16/23 Valery Veronica PA-C 909 [place] [address] Physician Education Professor Dermatology 09/19/23 Rey Tay MD [address] [place] [address] MD Gastroenterology 09/20/23 Rocky Zepeda DO [address] [place] [address] Physician Gastroenterology 09/20/23 Philip Dumont MD [address] [place] [address] Physician Ophthalmology 09/22/23 Meredith Carrera PA-C [address] [place] [address] Assigned Gastroenterology Provider 11/01/23 Neil Kent MD [address] [address] Dermatology 11/02/23 [place] [address] [place] [address] [address] Neurological Surgery 12/26/23 Audrey Waite PA-C [address] [place] [address] Physician Education Professor Dermatology 02/28/24 Valery Veronica PA-C [address]68 [address] [place] [address] Physician Education Professor Dermatology 04/10/24 Herminia Hatch MD [address] [place] [address] [id number] Assigned Rheumatology Provider 07/02/24 Jelena David, OD 3305 [facility] [place] [address] Ophthalmology 08/30/24 [place] [address] [place] [facility] 300 [place] [address] Assigned Neuroscience Provider 09/30/24 Maru Man PA-C [address] [place] [address] 732590 Physician Education Professor Dermatology 10/03/24 Maru Man PA-C [address], [place] 303780 Physician Education Professor Dermatology 10/22/24 Jelena David, OD 3305 [facility] [place] [address] Assigned Surgical Provider 10/31/24 Fabiano [place]rea, GENERAL ROAD SUPERVISOR 6405 [place] 017255 Assigned Heart and Vascular Provider 11/30/24 Walter Nowak MD 6405 [place] 232245 Physician Clinical Cardiac Electrophysiology 03/01/25 Liset Márquez MD [address] [facility] 300 [place] [address] value stream coach 03/13/25 Lauren Coronado, RPH [address] [place] [address] Pharmacist Pharmacist 04/15/25 documented as of this encounter
--- OUTSIDE RECORDS SUMMARY | 2025-04-27 00:07 | XMS_ITS | Encounter Summary ---
Author Organization [place] Address [address] [place] [address] Care Team Providers Care Research Environmental Scientist Name Role Phone Diana Desir [facility] Unavailable Rain GalavizC Unavailable Tavia Wyatt MD Unavailable Erica Farrell APRN HEAD CHAR FILTER TANK TENDER Unavailable Rich Barrett MD Unavailable [phone] Neil Kent MD Unavailable DesirKendrickDiana Stanislav [facility] Unavailable [phone] Livan Sharif MD Unavailable Catherine Cm MD Unavailable + Valery Veronica-C Unavailable [phone] Brea Quinn LOPPER HEAD CHAR FILTER TANK TENDER Unavailable [phone] Alfonso Renteria MD Unavailable [phone] Esha GrimmC Primary Care Provider Radha Lomeli LOPPER HEAD CHAR FILTER TANK TENDER Unavailable Jelena David OD Unavailable Alfa, Esha M PA-C Unavailable [phone] Valery Veronica PA-C Unavailable Rey Tay MD Unavailable Rocky Zepeda DO Unavailable Philip Dumont MD Unavailable [phone] Meredith Carrera PA-C Unavailable Neil Kent [...] Team (Late st Contact Info) Description 06/20/2024 [facility] Medical Advice [facility] [address] [place] [address] Carley Myles, RN Social History [...] Answer Date Recorded PHQ-2 Score 1 02/07/2024 [facility] of Occupat ional Health [...] exercise at this level? 20 min 05/07/2024 Atkinson Depression Scale Answer Date Recorded Atkinson Depression Score 5 01/14/2021 Last EPDS Self [...] PM CDT Legal Sex Female 4:13 AM TAXATION AGENT Gender Identity Female 03/02/2021 5:45 PM CDT Sexual Orientation Straight 02/28/2020 12 :51 AM CDT documented as of this encounter Plan of Treatment Upcoming Encounters Date Type Department Care Team (Late st Contact Info) Description 04/30/2025 10:30 AM CDT Office Visit [facility] [address], [address] [employer] [place] [address] Liset Márquez MD [address] [facility] 300 [place] [address] 05/30/2025 2:45 PM TAXATION AGENT Office Visit [facility] [address] [facility] [address] [place] [phone] Fabiano Correa, BRYCE 6405 [place], [place] 211205 Walter Nowak MD 0971 [place], [place] 640975 08/07/2025 8:15 AM TAXATION AGENT Office Visit [facility] [address] [facility] [address] [place] [phone] Lucien Grimes MD [address] 3[address]200 [place] 570605 08/21/2025 9:00 AM TAXATION AGENT Office Visit [facility] [address] [address] Neil Kent MD [address] [place] [address] 277535 10/09/2025 10:45 AM CDT Virtual Visit [facility] [address] 4th [place] [address] Meredith Carrera PA-C [address] [place] [address] 702715 documented as of this encounter Visit Diagnoses [...] as of this encounter Care Teams Research Environmental Scientist Relationship Specialty Start Date End Date Esha Grimm PA-C [address] [place] [address] PCP - General Family Medicine 05/04/23 Diana Desir, [facility] [address] [place] [address] Pharmacist Pharmacist 04/17/21 Rain Galaviz PA-C [address] [place] [address] [address] [place] [address] Physician Tire Recapper Dermatology 04/28/21 Tavia Wyatt MD [address] [place] [address] [address] [place] [address] Dermatology 07/14/21 Erica Farrell APRN HEAD CHAR FILTER TANK TENDER [address] [place] 331295 Nurse Practitioner Cardiovascular Disease 09/09/21 Rich Barrett MD [address] [place] 702125 Physician Ophthalmology 01/21/22 Neil Kent MD 500 [place], [place] 187725 Dermatology 02/24/22 Diana Desir, [facility] 3033 [place] [address] Assigned MTM Pharmacist 04/07/22 Livan Sharif MD [address] [place], [place] 993955 Cardiovascular Disease 05/14/22 Catherine Cm MD [address] [place], [place] 801185 Cardiovascular Disease 07/21/22 Valery Veronica, PA-C 909 [place], [place] 922915 Physician Tire Recapper Dermatology 07/21/22 Brea Quinn APRN HEAD CHAR FILTER TANK TENDER 500 [place] [address] Nurse Practitioner Dermatology 09/21/22 Alfonso Renteria MD [address]75 [facility] 200 [place], [place] 726746 Assigned Neuroscience Provider 04/02/23 09/29/24 Radha Lomeli APRN HEAD CHAR FILTER TANK TENDER [address] [place], [place] 139295 Assigned Heart and Vascular Provider 05/28/23 11/29/24 Jelena David OD [address] [facility] [place] [address] MD Ophthalmology 06/15/23 Esha Grimm PA-C [address] [place] [address] Assigned PCP 07/16/23 Valery Veronica PA-C [address] [place] [address] 388785 Physician Tire Recapper Dermatology 09/19/23 Rey Tay MD [address] [place] [address] 403865 MD Gastroenterology 09/20/23 Rocky Zepeda DO [address] [place] [address] 536475 Physician Gastroenterology 09/20/23 Philip Dumont MD 6 [place], [place] 306915 Physician Ophthalmology 09/22/23 Meredith Carrera PA-C [address] [place] [address] 253835 Assigned Gastroenterology Provider 11/01/23 Neil Kent MD [address] [place] [address] 957380 Dermatology 11/02/23 [place] [address] [place] [address] Neurological Surgery 12/26/23 Audrey Waite PA-C 500 [place] [address] Physician Tire Recapper Dermatology 02/28/24 Valery Veronica PA-C [id number] [address] [place] [address] Physician Tire Recapper Dermatology 04/10/24 Herminia Hatch MD [address] [place] [address] [phone] Assigned Rheumatology Provider 07/02/24 Jel[place] David OD [address] [place] [address] [place] [address] Ophthalmology 08/30/24 [place] [address] [place] [address] Assigned Neuroscience Provider 09/30/24 Maru Man PA-C [address] [place] [address] Physician Tire Recapper Dermatology 10/03/24 Maru Man PA-C [address] [place] [address] Physician Tire Recapper Dermatology 10/22/24 Jelena David OD [address] [place] [address] [place] [address] Assigned Surgical Provider 10/31/24 Fabiano Correa, SKETCH ARTIST [address] [place] [address] Assigned Heart and Vascular Provider 11/30/24 Walter Nowak MD [address] [place] [address] Physician Clinical Cardiac Electrophysiology 03/01/25 Liset Márquez MD [address] [place], [place] 953314 distributor sales consultant 03/13/25 Lauren Coronado, [facility] 909 [place] [address] Pharmacist Pharmacist 04/15/25 documented as of this encounter
--- OUTSIDE RECORDS SUMMARY | 2025-04-27 00:08 | XMS_ITS | Encounter Summary ---
Author Organization [facility] Address [address] [place] [address] Care Team Providers Care Residential Pest Control Technician Name Role Phone Diana Desir [facility] Unavailable Rain GalavizC Unavailable [phone] Tavia Wyatt MD Unavailable Erica Farrell APRN SIZING MACHINE AND DRIER OPERATOR Unavailable Rich Barrett MD Unavailable [phone] Neil Kent MD Unavailable DesirKendrickDiana Stanislav [facility] Unavailable [phone] Livan Sharif MD Unavailable Catherine Cm MD Unavailable + Valery Veronica-C Unavailable Brea Quinn GLASS PRESSER SIZING MACHINE AND DRIER OPERATOR Unavailable Alfonso Renteria MD Unavailable [phone] Esha GrimmC Primary Care Provider Radha Lomeli GLASS PRESSER SIZING MACHINE AND DRIER OPERATOR Unavailable Jel[place] David OD Unavailable Alfa, Esha M PA-C Unavailable [phone] Valery Veronica PA-C Unavailable Rey Tay MD Unavailable Rocky Zepeda DO Unavailable Philip Dumont MD Unavailable [phone] Meredith Carrera PA-C Unavailable Neil Kent MD Unavailable Juan Pablo Emmanuel MD Unavailable Audrey Waite PA-C Unavailable Valery Veronica PA-C Unavailable Herminia Hatch MD Unavailable Jelena David OD Unavailable Juan Pablo Emmanuel MD Unavailable Maru Man PA-C Unavailable Maru Man PA-C Unavailable Jelena David OD Unavailable Fabiano Correa ENVELOPE MAKER Unavailable Walter Nowak MD Unavailable Liset Márquez MD Unavailable Lauren Coronado [facility] Unavailable Encounter Details Date Type Department Care Team (Late st Contact Info) Description 06/05/2024 [facility] [place] [facility] Medical Advice [facility] 1874 [place] [address] Herminia Hatch MD 1874 [place], [place] [phone] Social History Tobacco Use Types Packs/Day Years [...] exercise at this level? 20 min 05/07/2024 Gall[place] Depression Scale Answer Date Recorded Gall[place] Depression Score 5 01/14/2021 Last EPDS Self [...] Legal Sex Female 4:13 AM REAL ESTATE UNDERWRITER Gender Identity Female 03/02/2021 5:45 PM CDT Sexual Orientation Straight 02/28/2020 12 :51 AM CDT documented as of this encounter Plan of Treatment Upcoming Encounters Date Type Department Care Team (Late st Contact Info) Description 04/30/2025 10:30 AM CDT Office Visit [facility] [place] [address], [address] [place] [phone] Liset Márquez MD [address] [place] [address] 05/30/2025 2:45 PM REAL ESTATE UNDERWRITER Office Visit [facility] [address] [facility] [address] [place] [phone] Fabiano Correa NP [address] [facility] [address] [place], [place] 529875 Walter Nowak MD [address] [facility] [address] [place], [place] 7467[address] 08/07/2025 8:15 AM REAL ESTATE UNDERWRITER Office Visit [facility] [address] 5011000 [place] [phone] Lucien Grimes MD [address] 6284300 [place], [place] 006465 08/21/2025 9:00 AM REAL ESTATE UNDERWRITER Office Visit [facility] [address] [phone] Neil Kent MD [address] [place] [address] [phone] 10/09/2025 10:45 AM CDT Virtual Visit [facility] Gastroenterology [facility] 909 [facility] 4th [place] [address] Meredith Carrera PABaldo [address] [place] [address] [phone] documented as of this encounter Visit Diagnoses [...] as of this encounter Care Teams Residential Pest Control Technician Relationship Specialty Start Date End Date Esha Grimm PA-C [address] [place] [address] PCP - General Family Medicine 05/04/23 [facility] 3033 [place] [address] Pharmacist Pharmacist 04/17/21 Rain Galaviz PA-C [address] [place] [address] [address] [place] [address] Physician Band Top Maker Dermatology 04/28/21 Tavia Wyatt MD [address] [place] [address] [address] [place] [address] Dermatology 07/14/21 Erica Farrell APRN SIZING MACHINE AND DRIER OPERATOR [address] [place] [address] Nurse Practitioner Cardiovascular Disease 09/09/21 Rich Barrett MD [address] [place] 353205 Physician Ophthalmology 01/21/22 Neil Kent MD 500 [place] [address] Dermatology 02/24/22 Diana Desir, [facility] 3033 [place], [place] 318516 Assigned MTM Pharmacist 04/07/22 Livan Sharif MD [address] 762145 Cardiovascular Disease 05/14/22 Catherine Cm MD 6[address] [facility] S [address] 970795 Cardiovascular Disease 07/21/22 Valery Veronica, PA-C 909 [place], [place] 117335 Physician Band Top Maker Dermatology 07/21/22 Brea Quinn APRN SIZING MACHINE AND DRIER OPERATOR 500 [place] [address] Nurse Practitioner Dermatology 09/21/22 Alfonso Renteria MD [address] 007496 Assigned Neuroscience Provider 04/02/23 09/29/24 Radha Lomeli APRN SIZING MACHINE AND DRIER OPERATOR [address] 431235 Assigned Heart and Vascular Provider 05/28/23 11/29/24 Jelena David OD [address] [facility] [place] [address] MD Ophthalmology 06/15/23 Esha Grimm PA-C [address] [place] [address] Assigned PCP 07/16/23 Valery Veronica PA-C [address] [place] [address] 885215 Physician Band Top Maker Dermatology 09/19/23 Rey Tay MD [address] [place] [address] 922545 MD Gastroenterology 09/20/23 Rocky Zepeda DO [address] [place] [address] 146285 Physician Gastroenterology 09/20/23 Philip Dumont MD [address] [place] [address] 119595 Physician Ophthalmology 09/22/23 Meredith Carrera PA-C [address] [place] [address] 459185 Assigned Gastroenterology Provider 11/01/23 Neil Kent MD [address] [address] Dermatology 11/02/23 [place] [address] [place] [address] Neurological Surgery 12/26/23 Audrey Waite PA-C 500 [place] [address] Physician Band Top Maker Dermatology 02/28/24 Valery Veronica PA-C [address] [place] [address] Physician Band Top Maker Dermatology 04/10/24 Herminia Hatch MD [address] [place] [address] [phone] Assigned Rheumatology Provider 07/02/24 Jelena David OD [address] [place] [address] [place] [address] Ophthalmology 08/30/24 [place] [address] [place] [address] Assigned Neuroscience Provider 09/30/24 Maru Man PA-C [address] [place] [address] Physician Band Top Maker Dermatology 10/03/24 Maru Man PA-C [address] [place] [address] Physician Band Top Maker Dermatology 10/22/24 Jelena David OD [address] [place] [address] ENMA K[place] 00534 Assigned Surgical Provider 10/31/24 Fabiano Correa NP [address] [place] [address] Assigned Heart and Vascular Provider 11/30/24 Walter Nowak MD [address] [place] [address] Physician Clinical Cardiac Electrophysiology 03/01/25 Liset Márquez MD [address] [place] [address] pharmacy technician per diem 03/13/25 Lauren Coronado, [facility] [address] [place] [address] 323755 Pharmacist Pharmacist 04/15/25 documented as of this encounter
--- OUTSIDE RECORDS SUMMARY | 2025-04-27 00:08 | XMS_ITS | Encounter Summary ---
Author Organization [facility] Address [address] [place] [address]75 Care Team Providers Care Bonderizer Operator Name Role Phone Diana Desir [facility] Unavailable Rain Galaviz PA-C Unavailable Tavia Wyatt MD Unavailable [phone] Erica Farrell APRN GOLD RECLAIMER Unavailable Rich Barrett MD Unavailable [phone] Neil Kent MD Unavailable DesirDiana [facility] Unavailable Livan Sharif MD Unavailable Catherine Cm MD Unavailable + Valery Veronica PA-C Unavailable Brea Quinn APRN GOLD RECLAIMER Unavailable Brea Quinn PURIFICATION OPERATOR GOLD RECLAIMER Unavailable Jose Francisco Johnson MD Unavailable Sydnie Martinez RN Unavailable Unavailable Alfonso Renteria MD Unavailable [phone] Esha Grimm PA-C Primary Care Provider [phone] Perez Chengjc Fish PA-C Unavailable Radha Lomeli APRN GOLD RECLAIMER Unavailable Jelena David OD Unavailable [phone] Pao Joseph RN Unavailable Unavailable Esha Grimm Adam PA-C Unavailable [phone] Valery Veronica PA-C Unavailable Rey Tay [...] David OD Unavailable [phone] Fabiano Correa PLASTER FOREMAN Unavailable Walter Nowak MD Unavailable Liset Márquez MD Unavailable Lauren Coronado [facility] Unavailable Encounter Details Date Type Department Care Team (Late st Contact Info) Description 06/17/2023 [facility] Medical Advice [facility] Epilepsy [facility] [address] [facility], [address] [place] [address] Alfonso Renteria MD [address] [facility] [address] [place], [place] [phone] Social History Tobacco Use Types Packs/Day Years [...] do you attend [facility] or pentecostal services? 1 to 4 times [...] PHQ-2 Score 0 06/20/2023 [facility] [place] of Occupat ional Health - Occupational Stress [...] exercise at this level? 30 min 03/10/2023 [place] Depression Scale Answer Date Recorded [place] Depression Score 5 01/14/2021 Last EPDS Self [...] CDT Legal Sex Female 4:13 AM CLOTH SANDER Gender Identity Female 03/02/2021 5:45 PM CDT Sexual Orientation Straight 02/28/2020 12 :51 AM CDT documented as of this encounter Miscellaneous Notes * Telephone Encounter - Lulu Xie - 06/28/2023 12:08 PM CST Patient calling to follow up on the below [place] message. Patient continues to have a lot of dizzyness and neck pain. H SANDER documented in this encounter Plan of Treatment Upcoming Encounters Date Type Department Care Team (Late st Contact Info) Description 04/30/2025 10:30 AM CDT Office Visit [facility] [address], [address] [place] [phone] Liset Márquez MD [address] [facility] 300 [place] [address] 05/30/2025 2:45 PM CLOTH SANDER Office Visit [facility] [address] [phone] Fabiano Correa, PLASTER FOREMAN 6405 [place], [place] 415295 Walter Nowak MD 4500 [place], [place] 907315 08/07/2025 8:15 AM CLOTH SANDER Office Visit [facility] [address] [phone] Lucien Grimes MD [address] 743675 08/21/2025 9:00 AM CLOTH SANDER Office Visit [address] [phone] Neil Kent MD [address] [place] [address] 10/09/2025 10:45 AM CDT Virtual Visit [facility] Gastroenterology Clinic [address] 4th [place] [phone] Meredith Carrera PA-C [address] [place] [address] 407945 documented as of this encounter Visit Diagnoses [...] Total Score: 6 05/16/20 23 9:29 AM CLOTH SANDER documented as of this encounter Care Teams Bonderizer Operator Relationship Specialty Start Date End Date Esha Grimm PA-C [address] [place] [phone] PCP - General Family Medicine 05/04/23 Diana Desir, [facility] [address] [place] [address] Pharmacist Pharmacist 04/17/21 Rain Galaviz PA-C [address] [place] [address] [address] [place] [address] Physician Roller Varnisher Dermatology 04/28/21 Tavia Wyatt MD [address] [place] [address] [address] [place] [address] Dermatology 07/14/21 Erica Farrell APRN GOLD RECLAIMER [address] [place] 043065 Nurse Practitioner Cardiovascular Disease 09/09/21 Rich Barrett MD [address] [place] 309285 Physician Ophthalmology 01/21/22 Neil Kent MD 500 [place], [place] 529225 Dermatology 02/24/22 Diana Desir, [facility] 3033 [place], [place] 939536 Assigned MTM Pharmacist 04/07/22 Livan Sharif MD [address] [place] [address] Cardiovascular Disease 05/14/22 Catherine Cm MD [address] [place] [address] Cardiovascular Disease 07/21/22 Valery Veronica, PALOMAC 909 [place] [address] Physician Roller Varnisher Dermatology 07/21/22 Brea Quinn APRN GOLD RECLAIMER [address] [place] [address] Nurse Practitioner Dermatology 09/21/22 Brea Quinn APRN GOLD RECLAIMER 6401 [facility] [place] [address] Assigned Surgical Provider 10/09/22 05/01/24 [place] [address] [place] [address] [address] Assigned Musculoskeletal Provider 10/09/22 05/01/24 Sydnie Martinez RN Personal Advocate & Liaison (PAL) Family Medicine 03/28/23 07/31/23 Alfonso Renteria MD 5775 [facility] 200 [place] [address] Assigned Neuroscience Provider 04/02/23 09/29/24 Cheng Todd PA-C [address] [place] [address] [phone] Assigned PCP 04/30/23 07/15/23 Radha Lomeli APRN GOLD RECLAIMER 6405 [facility] [address] [place] [address] Assigned Heart and Vascular Provider 05/28/23 11/29/24 Jelena David OD [address] [facility] [address] MD Ophthalmology 06/15/23 Pao Joseph, RN Personal Advocate & Liaison (PAL) Nurse 08/01/23 11/07/23 Esha Grimm PA-C [address] [place] [phone] Assigned PCP 07/16/23 Valery Veronica PA-C [address] [place] [address] 311875 Physician Roller Varnisher Dermatology 09/19/23 Rey Tay MD [address] [place] [address] 094205 MD Gastroenterology 09/20/23 Rocky Zepeda DO [address] [place] [address] 708215 Physician Gastroenterology 09/20/23 Philip Dumont MD [address] [place] [address] 794525 Physician Ophthalmology 09/22/23 Meredith Carrera PA-C [address] [place] [address] 333305 Assigned Gastroenterology Provider 11/01/23 Neil Kent MD [address] [place] [address] 326880 Dermatology 11/02/23 [place] [address] [place] [address] Neurological Surgery 12/26/23 Audrey Waite PA-C 500 [place] [address] Physician Roller Varnisher Dermatology 02/28/24 Valery Veronica PA-C 187455 [address] [place] [address] Physician Roller Varnisher Dermatology 04/10/24 Herminia Hatch MD [address] [place] [address] Assigned Rheumatology Provider 07/02/24 Jelena David OD [address] [place] [address] [place] K[place] [address] Ophthalmology 08/30/24 [place] [address] [place] [address] Assigned Neuroscience Provider 09/30/24 Maru Man PA-C [address] [place] [address] Physician Roller Varnisher Dermatology 10/03/24 Maru Man PA-C [address] [place] [address] Physician Roller Varnisher Dermatology 10/22/24 Jelena David OD [address] [place] [address] [place] K[place] [address] Assigned Surgical Provider 10/31/24 Fabiano Correa NP [address] [place] 776435 Assigned Heart and Vascular Provider 11/30/24 Walter Nowak MD [address] [place] 792995 Physician Clinical Cardiac Electrophysiology 03/01/25 Liset Márquez MD [address] [facility] [address] [place], [place] 506404 configuration management consultant 03/13/25 Lauren Coronado, [facility] 909 [place] [address] Pharmacist Pharmacist 04/15/25 documented as of this encounter
--- OUTSIDE RECORDS SUMMARY | 2025-04-27 00:08 | XMS_ITS | Encounter Summary ---
Author Organization [place] Address [address] [place] [address] Care Team Providers Care Health Insurance Agent Name Role Phone Diana Desir [facility] Unavailable Rain Galaviz PA-C Unavailable Tavia Wyatt MD Unavailable Erica Farrell APRN SQL SERVER CONSULTANT Unavailable Rich Barrett MD Unavailable [phone] Neil Kent MD Unavailable DesirDiana [facility] Unavailable Livan Sharif MD Unavailable Catherine Cm MD Unavailable + Valery Veronica PA-C Unavailable [phone] Brea Quinn APRN SQL SERVER CONSULTANT Unavailable [phone] Brea Quinn ROTARY MACHINE OPERATOR SQL SERVER CONSULTANT Unavailable Jose Francisco Johnson MD Unavailable Sydnie Martinez RN Unavailable Unavailable Alfonso Renteria MD Unavailable [phone] Esha Grimm PA-C Primary Care Provider Perez Chengjc Fish PA-C Unavailable Radha Lomeli APRN SQL SERVER CONSULTANT Unavailable Jelena David OD Unavailable [phone] Pao Joseph RN Unavailable Unavailable Esha Grimm Adam PA-C Unavailable [phone] Valery Veronica PA-C Unavailable Rey Tay [...] David OD Unavailable [phone] Fabiano Correa ELECTRODYNAMICIST Unavailable Walter Nowak MD Unavailable Liset Márquez MD Unavailable Lauren Coronado [facility] Unavailable Encounter Details Date Type Department Care Team (Late st Contact Info) Description 07/06/2023 MyC Medical Advice [facility] Epilepsy [facility] [address] [place] [address] Alfonso Renteria MD [address] [facility] [address] [place], [place] [phone] Social History Tobacco Use Types Packs/Day Years [...] do you attend [facility] or lutheran services? 1 to 4 times [...] Answer Date Recorded PHQ-2 Score 0 06/20/2023 [facility] of Occupat ional Health - Occupational Stress [...] exercise at this level? 30 min 03/10/2023 [place] Depression Scale Answer Date Recorded [place] Depression Score 5 01/14/2021 Last EPDS Self [...] in an overnight fdc, or couch-surfing.) Yes 06/20/2023 Are you worried [...] PM CDT Legal Sex Female 4:13 AM PERFORATOR OPERATOR Gender Identity Female 03/02/2021 5:45 PM CDT Sexual Orientation Straight 02/28/2020 12 :51 AM CDT documented as of this encounter Miscellaneous Notes * Telephone Encounter - Genny Hyman PA-C - 07/07/2023 11:13 AM PERFORATOR OPERATOR No lesions/abnormal findings on MRI to account for possible seizure activity. Last office note indicated: If repeat MRI was normal would reduce levetiracetam to 250 mg per day for two weeks and then stop. Ok to proceed with this plan. Call if questions, concerns, or worsening of symptoms with discontinuation of the medication Genny Hyman PA-C ORATOR OPERATOR documented in this encounter Plan of Treatment Upcoming Encounters Date Type Department Care Team (Late st Contact Info) Description 04/30/2025 10:30 AM CDT Office Visit [facility] [place] [address], [address] [place] [address] Liset Márquez MD [address] [address] 05/30/2025 2:45 PM PERFORATOR OPERATOR Office Visit [address] [phone] Fabiano Correa NP 6405 [place], [place] 716275 Walter Nowak MD 6407 [place], [place] 978715 08/07/2025 8:15 AM PERFORATOR OPERATOR Office Visit [address] [phone] Lucien Grimes MD [address] 4607[address] 08/21/2025 9:00 AM PERFORATOR OPERATOR Office Visit [facility] [address] [phone] Neil Kent MD [address] [place] [address] 10/09/2025 10:45 AM CDT Virtual Visit [facility] [address] 4th [place] [phone] Meredith Carrera PA-C [address] [place] [address] 642815 documented as of this encounter Visit Diagnoses [...] Total Score: 4 06/20/20 23 8:40 AM PERFORATOR OPERATOR documented as of this encounter Care Teams Health Insurance Agent Relationship Specialty Start Date End Date Esha Grimm PA-C [address] [place] [address] PCP - General Family Medicine 05/04/23 [facility] [address] [place] [address] Pharmacist Pharmacist 04/17/21 Rain Galaviz PA-C [address] [place] [address] [address] [place] [address] Physician Field Account Director Dermatology 04/28/21 Tavia Wyatt MD [address] [place] [address] [address] [facility] [address] Dermatology 07/14/21 Erica Farrell APRN SQL SERVER CONSULTANT [address] [place] 224[address] Nurse Practitioner Cardiovascular Disease 09/09/21 Rich Barrett MD [address] [place] [address] Physician Ophthalmology 01/21/22 Neil Kent MD 500 [place], [place] 116655 Dermatology 02/24/22 Diana Desir, [facility] [address] [place] [address] Assigned MTM Pharmacist 04/07/22 Livan Sharif MD [address] [place] [address] Cardiovascular Disease 05/14/22 Catherine Cm MD 6402 [facility] [address] [place] [address] Cardiovascular Disease 07/21/22 Valery Veronica PA-C 909 [place] [address] Physician Field Account Director Dermatology 07/21/22 Brea Quinn APRN SQL SERVER CONSULTANT [address] [place] [address] Nurse Practitioner Dermatology 09/21/22 Brea Quinn APRN SQL SERVER CONSULTANT 6401 [place] [address] Assigned Surgical Provider 10/09/22 05/01/24 [place] [address] [facility] 300 [place] [address] Assigned Musculoskeletal Provider 10/09/22 05/01/24 Sydnie Martinez RN Personal Advocate & Liaison (PAL) Family Medicine 03/28/23 07/31/23 Alfonso Renteria MD 5775 [facility] 200 [place] [address] Assigned Neuroscience Provider 04/02/23 09/29/24 Cheng Todd PA-C [address] [place] [address] [phone] Assigned PCP 04/30/23 07/15/23 Radha Lomeli APRN SQL SERVER CONSULTANT [address] [place] [phone] [place] [address] Assigned Heart and Vascular Provider 05/28/23 11/29/24 Jelena David OD [address] [place] [address] MD Ophthalmology 06/15/23 Pao Joseph, RN Personal Advocate & Liaison (PAL) Nurse 08/01/23 11/07/23 Esha Grimm PA-C [address] [place] [phone] Assigned PCP 07/16/23 Valery Veronica PA-C [address] [place] [address] 921575 Physician Field Account Director Dermatology 09/19/23 Rey Tay MD [address] [place] [address] 001085 Gastroenterology 09/20/23 Rocky Zepeda DO [address] [place] [address] 026115 Physician Gastroenterology 09/20/23 Philip Dumont MD [address] [place] [address] 483615 Physician Ophthalmology 09/22/23 Meredith Carrera PA-C [address] [place] [address] 145015 Assigned Gastroenterology Provider 11/01/23 Neil Kent MD [address] [address] Dermatology 11/02/23 [place] [address] [place] [address] Neurological Surgery 12/26/23 Audrey Waite PA-C [address] [place] [address] Physician Field Account Director Dermatology 02/28/24 Valery Veronica PA-C 861943 [place] [address] Physician Field Account Director Dermatology 04/10/24 Herminia Hatch MD [address] [place] [address] [phone] Assigned Rheumatology Provider 07/02/24 Jelena David OD [address] [place] [address] [place] [address] Ophthalmology 08/30/24 [place] [address] [place] [address] Assigned Neuroscience Provider 09/30/24 Maru Man PA-C [address] [place] [address] Physician Field Account Director Dermatology 10/03/24 Maru Man PA-C [address] [place] [address] Physician Field Account Director Dermatology 10/22/24 Jelena David OD 3305 [facility] [place] [address] Assigned Surgical Provider 10/31/24 Fabiano Correa NP [address] [place] 258315 Assigned Heart and Vascular Provider 11/30/24 Walter Nowak MD 6[address] [place] 017705 Physician Clinical Cardiac Electrophysiology 03/01/25 Liset Márquez MD [address] [place], [place] 255374 filling station attendant 03/13/25 Lauren Coronado, [facility] 9 [place] [address] Pharmacist Pharmacist 04/15/25 documented as of this encounter
--- OUTSIDE RECORDS SUMMARY | 2025-04-27 00:08 | XMS_ITS | Encounter Summary ---
Author Organization [place] Address [address] [place] [address] Care Team Providers Care Heavy Antiarmor Weapons Infantryman Name Role Phone Diana Desir [facility] Unavailable Rain GalavizC Unavailable Tavia Wyatt MD Unavailable Erica Farrell APRN OVERLAY PLASTICIAN Unavailable Rich Barrett MD Unavailable [phone] Neil Kent MD Unavailable DesirKendrickDiana Stanislav [facility] Unavailable [phone] Livan Sharif MD Unavailable Catherine Cm MD Unavailable + Valery Veronica-C Unavailable Brea Quinn VISUAL TRAINING AIDE OVERLAY PLASTICIAN Unavailable Alfonso Renteria MD Unavailable [phone] Esha GrimmC Primary Care Provider [phone] Radha Lomeli VISUAL TRAINING AIDE OVERLAY PLASTICIAN Unavailable Jelena David OD Unavailable [place], Esha M PA-C Unavailable [phone] Valery Veronica PA-C Unavailable Rey Tay MD Unavailable Rocky Zepeda DO Unavailable Philip Dumont MD Unavailable [phone] Meredith Carrera PA-C Unavailable Neil Kent [...] Lauren Coronado [facility] Unavailable Encounter Details Date Type Department Care Team (Late st Contact Info) Description 06/06/2024 Orders Only [facility] [address] [place] [address] Outside, Provider Social History Tobacco Use Types [...] 1 02/07/2024 [facility] - Occupational Stress Questionnaire [...] exercise at this level? 20 min 05/07/2024 [place] Depression Scale Answer Date Recorded [place] Depression Score 5 01/14/2021 Last EPDS Self [...] PM CDT Legal Sex Female 4:13 AM SERVER DEVELOPER Gender Identity Female 03/02/2021 5:45 PM CDT Sexual Orientation Straight 02/28/2020 12 :51 AM CDT documented as of this encounter Plan of Treatment Upcoming Encounters Date Type Department Care Team (Late st Contact Info) Description 04/30/2025 10:30 AM CDT Office Visit [facility] [address], [address] [place] [address] Liset Márquez MD [address] [place] [address] 05/30/2025 2:45 PM SERVER DEVELOPER Office Visit [facility] 6[address] [facility] [address] [place] [phone] Fabiano Correa NP [address] [facility] [place] 9[address] Walter Nowak MD 6405 [place], [place] 377985 08/07/2025 8:15 AM SERVER DEVELOPER Office Visit [facility] 6[address] [facility] [address] [place] [phone] Lucien Grimes MD [address] 682845 08/21/2025 9:00 AM SERVER DEVELOPER Office Visit [facility] [address] [address] Neil Kent MD [address] [place] [address] 277275 10/09/2025 10:45 AM CDT Virtual Visit [facility] [address] 4th [place] [phone] Meredith Carrera PA-C [address] [place] [address] documented as of this encounter Procedures Procedure Name Priority Date/Time Associated Diagnosis Comments HLA RESULT REPORT 06/06/2024 2:04 PM SERVER DEVELOPER documented in this encounter Results * HLA Result Report (06/06/2024 2:04 PM SERVER DEVELOPER) us Provider Outside LAB - IMMUNOLOGY ORDERABLES [...] as of this encounter Care Teams Heavy Antiarmor Weapons Infantryman Relationship Specialty Start Date End Date Esha Grimm PA-C [address] [place] [address] PCP - General Family Medicine 05/04/23 Diana Desir, [facility] [address] [place], [place] [address] Pharmacist Pharmacist 04/17/21 Rain Galaviz PA-C [address] [place] [address] [place] [address] Physician Electronics Lead Dermatology 04/28/21 Tavia Wyatt MD [address] [place] [address] [place] [phone] Dermatology 07/14/21 Erica Farrell APRN OVERLAY PLASTICIAN 6405 [facility] [address] [place] [address] Nurse Practitioner Cardiovascular Disease 3/2/22 Rich Barrett MD [address] [place], [place] 9[address]95 Physician Ophthalmology 01/21/22 Neil Kent MD 500 [place], [place] [address] MD Dermatology 02/24/22 [facility] 3033 [place], [place] 644746 Assigned MTM Pharmacist 04/07/22 Livan Sharif MD [address] [place], [place] 710485 Cardiovascular Disease 05/14/22 Catherine Cm MD [address] [facility] [place], [place] 787805 Cardiovascular Disease 07/21/22 Valery Veronica, PA-C 909 [place], [place] 780685 Physician Electronics Lead Dermatology 07/21/22 Brea Quinn, VISUAL TRAINING AIDE OVERLAY PLASTICIAN 500 [place], [place] 938935 Nurse Practitioner Dermatology 09/21/22 Alfonso Renteria MD 5775 [facility] 200 [place] [address] Assigned Neuroscience Provider 04/02/23 09/29/24 Radha Lomeli APRN OVERLAY PLASTICIAN [address] [place], [place] 292765 Assigned Heart and Vascular Provider 05/28/23 11/29/24 Jelena David OD [address] [facility] [place] [address] MD Ophthalmology 06/15/23 Esha Grimm PA-C [address] [place] [phone] Assigned PCP 07/16/23 Valery Veronica PA-C [address] [place] [address] 254225 Physician Electronics Lead Dermatology 09/19/23 Rey Tay MD [address] [place] [address] 059075 Gastroenterology 09/20/23 Rocky Zepeda DO [address] [place] [address] 720735 Physician Gastroenterology 09/20/23 Philip Dumont MD [address] [place] [address] 059195 Physician Ophthalmology 09/22/23 Meredith Carrera PA-C [address] [place] [address] 696305 Assigned Gastroenterology Provider 11/01/23 Neil Kent MD [address] [address] Dermatology 11/02/23 [place] [address] [place] [address] Neurological Surgery 12/26/23 Audrey Waite PA-C [address] [place] [address] Physician Electronics Lead Dermatology 02/28/24 Valery Veronica PA-C [address] [place] [address] Physician Electronics Lead Dermatology 04/10/24 Herminia Hatch MD [address] [place] [address] [phone] Assigned Rheumatology Provider 07/02/24 Jelena David OD [address] [place] [address] [place] [address] Ophthalmology 08/30/24 [place] [address] [place] [address] Assigned Neuroscience Provider 09/30/24 Maru Man PA-C [address] [place] [address] Physician Electronics Lead Dermatology 10/03/24 Maru Man PA-C [address] [place] [address] Physician Electronics Lead Dermatology 10/22/24 Jelena David OD 3305 [facility] [place] [address] Assigned Surgical Provider 10/31/24 Fabiano Correa NP [address] [place] 880035 Assigned Heart and Vascular Provider 11/30/24 Walter Nowak MD [address] [place] 735685 Physician Clinical Cardiac Electrophysiology 03/01/25 Liset Márquez MD [address] [place], [place] 995644 gas load dispatcher 03/13/25 Lauren Coronado, [facility] 9 [place] [address] Pharmacist Pharmacist 04/15/25 documented as of this encounter
--- OUTSIDE RECORDS SUMMARY | 2025-04-27 00:08 | XMS_ITS | Encounter Summary ---
Author Organization [place] Address [address] [place] [address] Care Team Providers Care Stereo Equipment Installer Name Role Phone Diana Desir [facility] Unavailable Rain GalavizC Unavailable Tavia Wyatt MD Unavailable [phone] Erica Farrell APRN KRAFT MILL OPERATOR Unavailable Rich Barrett MD Unavailable [phone] Neil Kent MD Unavailable ThangKendrickDiana Stanislav [facility] Unavailable Livan Sharif MD Unavailable Catherine Cm MD Unavailable + Valery Veronica-C Unavailable Brea Quinn APRN KRAFT MILL OPERATOR Unavailable Esha Grimm PA-C Primary Care Provider Jelena David OD Unavailable Esha Grimm PA-C Unavailable [phone] Valery Veronica PA-C Unavailable [phone] Rey Tay MD Unavailable DuaneRocky Unavailable Philip Dumont MD Unavailable [phone] Meredith Carrera PA-C Unavailable [phone] Neil Kent MD Unavailable Juan Pablo Emmanuel MD Unavailable [phone] Audrey Waite PA-C Unavailable [phone] Valery Veronica PA-C Unavailable [phone] Herminia Hatch MD Unavailable Jelena David OD Unavailable Juan Pablo Emmanuel MD Unavailable [phone] Maru Man-C Unavailable [phone] Maru Man-C Unavailable [phone] Jelena David OD Unavailable Fabiano Correa NP Unavailable [phone] Walter Nowak MD Unavailable Encounter Details Date Type Department Care Team (Latest Contact Info) Description 03/12/2025 Travel Social History Tobacco Use Types Packs/Day [...] 05/07/2024 How often do you attend [facility] or anabaptist services? 1 to 4 [...] exercise at this level? 20 min 05/07/2024 [place] Depression Scale Answer Date Recorded [place] Depression Score 5 01/14/2021 Last EPDS Self [...] PM CDT Legal Sex Female 4:13 AM INVESTIGATOR INTERNAL AFFAIRS Gender Identity Female 03/02/2021 5:45 PM CDT Sexual Orientation Straight 02/28/2020 12 :51 AM CDT documented as of this encounter Plan of Treatment Upcoming Encounters Date Type Department Care Team (Late st Contact Info) Description 04/30/2025 10:30 AM CDT Office Visit [facility] [place] [address], [address] [place] [phone] Liset Márquez MD [address] [place] [address] 05/30/2025 2:45 PM INVESTIGATOR INTERNAL AFFAIRS Office Visit [facility] [address] [facility] [address] [place] [phone] Fabiano Correa, MINING PLANT OPERATOR [address] [facility] [place] [address] Walter Nowak MD 6405 [place] 007815 08/07/2025 8:15 AM INVESTIGATOR INTERNAL AFFAIRS Office Visit [facility] [address] [place] [phone] Lucien Grimes MD [address] [facility] [address] [place] 200[address] 08/21/2025 9:00 AM INVESTIGATOR INTERNAL AFFAIRS Office Visit [facility] [address] [phone] Neil Kent MD 500 [place], [place] 993915 10/09/2025 10:45 AM CDT Virtual Visit [facility] [address] [place] [address] 4th [place] [phone] Meredith Carrera PA-C [address] [place] [address] 597675 documented as of this encounter Visit Diagnoses Not on filedocumented in this encounter Additional Health Concerns Assessment Noted Time PHQ-9 Depression Total Score: 5 10/25/19 25 10:38 AM CDT documented as of this encounter Care Teams Stereo Equipment Installer Relationship Specialty Start Date End Date Esha Grimm PAUcheC [address] [place] [phone] PCP - General Family Medicine 05/04/23 Diana Desir, [facility] [address] [place] [address] Pharmacist Pharmacist 04/17/21 Rain Galaviz PA-C [address] [place] [address] [address] [place] [address] Physician Library Media Specialist Dermatology 04/28/21 Tavia Wyatt MD [address] [place] [address] [address] [place] [address] Dermatology 07/14/21 Erica Farrell APRN KRAFT MILL OPERATOR [address] [place] 786935 Nurse Practitioner Cardiovascular Disease 09/09/21 Rich Barrett MD [address] [place] 628915 Physician Ophthalmology 01/21/22 Neil Kent MD 500 [place], [place] 515155 Dermatology 02/24/22 Diana Desir, [facility] 3033 [place], [place] 098106 Assigned MTM Pharmacist 04/07/22 Livan Sharif MD [address] [place] 6[address] Cardiovascular Disease 05/14/22 Catherine Cm MD [address] [address] [place] 027405 Cardiovascular Disease 07/21/22 Valery Veronica PA-C [address] [place] [address] 429925 Physician Library Media Specialist Dermatology 07/21/22 Brea Quinn APRN CNP [address] [place] [address] 369235 Nurse Practitioner Dermatology 09/21/22 Jelena David OD [address] [place] [address] MD Ophthalmology 06/15/23 Esha Grimm PA-C [address] [place] [phone] Assigned PCP 07/16/23 Valery Veronica PA-C [address] [place] [address] 437295 Physician Library Media Specialist Dermatology 09/19/23 Rey Tay MD [address] [place] [address] 286305 MD Gastroenterology 09/20/23 Rocky Zepeda DO [address] [place] [address] 983715 Physician Gastroenterology 09/20/23 Philip Dumont MD [address] [place] [address] 530735 Physician Ophthalmology 09/22/23 Meredith Carrera PA-C [address] [place] [address] 087455 Assigned Gastroenterology Provider 11/01/23 Neil Kent MD [address] [place] [address] Dermatology 11/02/23 [place] [address] [place] [address] Neurological Surgery 12/26/23 Audrey Waite PA-C [address] [place] [address] Physician Library Media Specialist Dermatology 02/28/24 Valery Veronica PA-C [id number] [address] [place] [address] Physician Library Media Specialist Dermatology 04/10/24 Herminia Hatch MD [address] [place] [address] [phone] Assigned Rheumatology Provider 07/02/24 Jelena David OD [address] [place] [address] [place] [address] Ophthalmology 08/30/24 [place] [address] [place] [address] Assigned Neuroscience Provider 09/30/24 Maru Man PA-C [address] [place] [address] Physician Library Media Specialist Dermatology 10/03/24 Maru Man PA-C [address] [place] [address] Physician Library Media Specialist Dermatology 10/22/24 Jelena David OD [address]305 [facility] [place] [address] Assigned Surgical Provider 10/31/24 Fabiano Correa NP [address] [place] 154795 Assigned Heart and Vascular Provider 11/30/24 Walter Nowak MD [address] [place] [address] Physician Clinical Cardiac Electrophysiology 03/01/25 documented as of this encounter
--- OUTSIDE RECORDS SUMMARY | 2025-04-27 00:08 | XMS_ITS | Encounter Summary ---
Author Organization [facility] Address [address] [place] [address] Care Team Providers Care Medical Services Coordinator Name Role Phone Diana Desir [facility] Unavailable Rain GalavizC Unavailable Tavia Wyatt MD Unavailable [phone] Erica Farrell APRN CHIEF DESIGN DRAFTER Unavailable Rich Barrett MD Unavailable [phone] Neil Kent MD Unavailable ThangKendrickDiana Stanislav [facility] Unavailable Livan Sharif MD Unavailable Catherine Cm MD Unavailable + Valery Veronica-C Unavailable [phone] Brea Quinn APRN CHIEF DESIGN DRAFTER Unavailable Esha Grimm PA-C Primary Care Provider Jelena David OD Unavailable Esha Grimm PA-C Unavailable [phone] Valery Veronica PA-C Unavailable [phone] Rey Tay MD Unavailable Rocky Zepeda DO Unavailable Philip Dumont MD Unavailable Meredith Carrera PA-C Unavailable Neil Kent MD Unavailable Juan Pablo Emmanuel MD Unavailable Audrey Waite PA-C Unavailable Valery Veronica PA-C Unavailable Herminia Hatch MD Unavailable Jelena David OD Unavailable Juan Pablo Emmanuel MD Unavailable Maru Man PA-C Unavailable Maru Man PA-C Unavailable Jelena David OD Unavailable [phone] Fabiano Correa NP Unavailable [phone] Walter Nowak MD Unavailable Liset Márquez MD Unavailable Lauren Coronado [facility] Unavailable Reason for Visit * Reason Onset Date Comments Cancel/Reschedule 03/12/2025 EGD Encounter Details Date Type Department Care Team (Late st Contact Info) Description 03/12/2025 Telephone [facility] [address] 4th [place] [address] Luz Marina Michele Cancel/Reschedule (EGD) Social History Tobacco Use Types Packs/Day [...] Answer Date Recorded PHQ-2 Score 1 04/11/2025 [facility] - [...] exercise at this level? 20 min 05/07/2024 Duff Depression Scale Answer Date Recorded Duff Depression Score 5 01/14/2021 Last EPDS Self [...] CDT Legal Sex Female 4:13 AM COMPUTER REPAIR TECHNICIAN Gender Identity Female 03/02/2021 5:45 PM CDT Sexual Orientation Straight 02/28/2020 12 :51 AM CDT documented as of this encounter Miscellaneous Notes * Telephone Encounter - Wesley Powell - 04/26/2025 8:17 AM CDT 2nd attempt to reschedule with Erasmo at [facility]. Left VM. * Telephone Encounter - Wesley Powell - 04/25/2025 9:08 AM CDT LVM for patient to try and get EGD rescheduled with Dr. Zimmerman at [facility]. * Telephone Encounter - Apolinar [place] - 04/22/2025 1:23 PM CDT Caller: Kim Reason for Reschedule/Cancellation (please be detailed, any staff messages or encounters to note?): Scheduling conflict Did you cancel or rescheduled an EUS procedure? No. Is screening questionnaire older than 3 months from the reschedule date. If Yes, please complete screening questionnaire. Yes Prior to reschedule please review: Ordering Provider: Meredith Carrera PA-C Sedation Determined: MAC Does patient have any ASC Exclusions, please identify?: N Notes on Cancelled Procedure: Procedure: Upper Endoscopy [EGD] Date: 05/15/25 Location: [facility] [place]; [address] [place] [address] Surgeon: JUNE Rescheduled: No, email sent to [facility] schedulers to finalize scheduling * Telephone Encounter - TeeweiLuz Marina bryan - 03/12/2025 3:59 PM CDT Caller: patient Reason for Reschedule/Cancellation (please be detailed, any staff messages or encounters to note?): Not feeling well, body aches, low grade fever Did you cancel or rescheduled an EUS procedure? No. Is screening questionnaire older than 3 months from the reschedule date. If Yes, please complete screening questionnaire. No 12.31.24 Prior to reschedule please review: Ordering Provider: Meredith Carrera PA-C Sedation Determined: MAC Does patient have any ASC Exclusions, please identify?: No Notes on Cancelled Procedure: Procedure: Upper Endoscopy [EGD] Date: 03.13.25 Location: [facility] [place]; [address] [place] [address] [place] [address] Surgeon: June Rescheduled: Yes, Procedure: Upper Endoscopy [EGD] Date: 05.15.25 Location[facility]; [address] [place] [address], 5th Floor, [place] [address] Surgeon: June Sedation Level Scheduled MAC , Reason for Sedation Level Order Instructions updated and sent: MC Does patient need PAC or Pre -Op Rescheduled? : No documented in this encounter Plan of Treatment Upcoming Encounters Date Type Department Care Team (Late st Contact Info) Description 04/30/2025 10:30 AM CDT Office Visit [facility] [address], [place] [address] [place] [employer] [place] [address] Liset Márquez MD [address] [facility] 300 [place] [address] 05/30/2025 2:45 PM COMPUTER REPAIR TECHNICIAN Office Visit [facility] [address] [phone] Fabiano Correa, BRYCE 4160 [place], [place] 097205 Walter Nowak MD 3204 [place], [place] 396785 08/07/2025 8:15 AM COMPUTER REPAIR TECHNICIAN Office Visit [facility] [address] [phone] Lucien Grimes MD [address] [address] 08/21/2025 9:00 AM COMPUTER REPAIR TECHNICIAN Office Visit [address] [phone] Neil Kent MD 500 [place] [address] 10/09/2025 10:45 AM CDT Virtual Visit [facility] [place] 909 [facility] 4th [place] [phone] Meredith Carrera PA-C [address] [place] [address] documented as of this encounter Visit Diagnoses Not on filedocumented in this encounter Additional Health Concerns Assessment Noted Time PHQ-9 Depression Total Score: 5 10/25/19 25 10:38 AM CDT documented as of this encounter Care Teams Medical Services Coordinator Relationship Specialty Start Date End Date Esha Grimm PA-C [address] [place] [phone] PCP - General Family Medicine 05/04/23 Diana Desir, [facility] [address] [place] [address] Pharmacist Pharmacist 04/17/21 Rain Galaviz PA-C [address] [place] [address] [address] [place] [address] Physician Radiator Core Tester Dermatology 04/28/21 Tavia Wyatt MD [address] [place] [address] [address] [place] [address] Dermatology 07/14/21 Erica Farrell APRN CHIEF DESIGN DRAFTER 6405 [facility] [address] [place] [address] Nurse Practitioner Cardiovascular Disease 09/09/21 Rich Barrett MD [address] [place], [place] 2154[address] Physician Ophthalmology 01/21/22 Neil Kent MD 500 [place], [place] 867255 Dermatology 02/24/22 [facility] 3033 [place], [place] 681826 Assigned [facility] Pharmacist 04/07/22 Livan Sharif MD [address] [place], [place] 4145[address] Cardiovascular Disease 05/14/22 Catherine Cm MD [address] [place], [place] 305[address] Cardiovascular Disease 07/21/22 Valery Veronica PA-C 909 [place], [place] 598695 Physician Radiator Core Tester Dermatology 07/21/22 Brea Quinn APRN CHIEF DESIGN DRAFTER 500 [place], [place] 082805 Nurse Practitioner Dermatology 09/21/22 Jelena David OD [address] [facility] [place] [address] MD Ophthalmology 06/15/23 Esha Grimm, PA-C [address] [place] [phone] Assigned PCP 07/16/23 Valery Veronica PA-C [address] [place] [address] Physician Radiator Core Tester Dermatology 09/19/23 Rey Tay MD [address] [place] [address] MD Gastroenterology 09/20/23 Rocky Zepeda DO [address] [place] [address] 424545 Physician Gastroenterology 09/20/23 Philip Dumont MD [address] [place] [address] Physician Ophthalmology 09/22/23 Meredith Carrera PA-C [address] [place] [address] Assigned Gastroenterology Provider 11/01/23 Neil Kent MD [address] [address] Dermatology 11/02/23 [place] [address] [place], [place] 313[address] Neurological Surgery 12/26/23 Audrey Waite PA-C [address] [place] [address] 3059[address] Physician Radiator Core Tester Dermatology 02/28/24 Valery Veronica PA-C 695460 [facility] [place] [address] Physician Radiator Core Tester Dermatology 04/10/24 Herminia Hatch MD [facility]5 [place], [place] [phone] Assigned Rheumatology Provider 07/02/24 [place] [address] [place] [address] [place] [address] Ophthalmology 08/30/24 [place] [address] [place] [address] Assigned Neuroscience Provider 09/30/24 Mrau Man PA-C [address] [place] [address] Physician Radiator Core Tester Dermatology 10/03/24 Maru Man PA-C [address] [place] [address] Physician Radiator Core Tester Dermatology 10/22/24 Jelena David, SONJA [address] [place] [address] [place] [address] Assigned Surgical Provider 10/31/24 Fabiano Correa INSIDE METER TESTER [address] [place] [address] Assigned Heart and Vascular Provider 11/30/24 Walter Nowak MD 6405 [place] [address] Physician Clinical Cardiac Electrophysiology 03/01/25 Liset Márquez MD [address] [facility] 300 [place] [address] payroll bookkeeper 03/13/25 Lauren Coronado, [facility] [address] [place] [address] [phone] Pharmacist Pharmacist 04/15/25 documented as of this encounter
--- OUTSIDE RECORDS SUMMARY | 2025-04-27 00:08 | XMS_ITS | Encounter Summary ---
Author Organization [facility] [place] Address [address] [place] [address] Care Team Providers Care Director Stage Name Role Phone Diana Desir [facility] Unavailable Rain Galaviz PA-C Unavailable Tavia Wyatt MD Unavailable Erica Farrell APRN INDUSTRIAL EDITOR Unavailable Rich Barrett MD Unavailable [phone] Neil Kent MD Unavailable DesirDiana [facility] Unavailable Livan Sharif MD Unavailable Catherine Cm MD Unavailable + Valery Veronica PA-C Unavailable Brea Quinn APRN INDUSTRIAL EDITOR Unavailable Brea Quinn RETAIL PLANNER INDUSTRIAL EDITOR Unavailable Jose Francisco Johnson MD Unavailable Sydnie Martinez RN Unavailable Unavailable Alfonso Renteria MD Unavailable [phone] Esha Grimm PA-C Primary Care Provider [phone] Cheng Todd PA-C Unavailable Radha Lomeli APRN INDUSTRIAL EDITOR Unavailable Jelena David OD Unavailable Pao Joseph RN Unavailable Unavailable Esha Grimm Adam PA-C Unavailable [phone] Valery Veronica PA-C Unavailable Rey Tay [...] Unavailable Jelena David OD Unavailable Fabiano Correa CONTRACT PREPARER Unavailable Walter Nowak MD Unavailable Liset Márquez MD Unavailable Lauren Coronado [facility] Unavailable Encounter Details Date Type Department Care Team (Late st Contact Info) Description 07/06/2023 [facility] [address] [address] Esha Grimm PA-C [address] [place] [address] Social History Tobacco Use Types [...] attend [facility] or buddhist services? 1 to 4 times per year 03/10/2023 Do you belong to any clubs o r organizations such as sabianist groups, unions, fraKimbia or athletic groups, or school groups? No [...] Recorded PHQ-2 Score 0 06/20/2023 [facility] of Occupat ional Health - Occupational Stress [...] exercise at this level? 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 Gender Identity Female 03/02/2021 5:45 PM CDT Sexual Orientation Straight 02/28/2020 12 :51 AM CDT documented as of this encounter Plan of Treatment Upcoming Encounters Date Type Department Care Team (Late st Contact Info) Description 04/30/2025 10:30 AM CDT Office Visit [facility] [address], [address] [place] [address] Liset Márquez MD [address] [facility] 300 [place] [address] 05/30/2025 2:45 PM TRAVELERS' AID WORKER Office Visit [facility] [address] [phone] Fabiano Correa NP 6405 [place], [place] 111[address] Walter Nowak MD 0187 [place], [place] 7137[address] 08/07/2025 8:15 AM TRAVELERS' AID WORKER Office Visit [facility] [address] [phone] Lucien Grimes MD [address] 931565 08/21/2025 9:00 AM TRAVELERS' AID WORKER Office Visit [facility] [address] [phone] Neil Kent MD 500 [place], [place] 6[address] 10/09/2025 10:45 AM CDT Virtual Visit [facility] Gastroenterology [address] 4th [place] [phone] Meredith Carrera PA-C 909 [place] [address] documented as of this encounter Visit Diagnoses [...] Total Score: 4 06/20/20 23 8:40 AM TRAVELERS' AID WORKER documented as of this encounter Care Teams Director Stage Relationship Specialty Start Date End Date Esha Grimm PA-C [address] [place] [address] PCP - General Family Medicine 05/04/23 Diana Desir, [facility] [place] [address] Pharmacist Pharmacist 04/17/21 Rain Galaviz PA-C [address] [place] [address] [address] [place] [address] Physician Rn Angiography Dermatology 04/28/21 Tavia Wyatt MD [address] [place] [address] [address] [place] [phone] Dermatology 07/14/21 Erica Farrell APRN INDUSTRIAL EDITOR [address] [place] [address] Nurse Practitioner Cardiovascular Disease 09/09/21 iRch Barrett MD [address] [place] [address]65 Physician Ophthalmology 01/21/22 Neil Kent MD 500 [place], [place] 65[address]35 Dermatology 02/24/22 Diana Desir, [facility] 3033 [place], [place] 153266 Assigned MTM Pharmacist 04/07/22 Livan Sharif MD [address] [address] [place] [address] Cardiovascular Disease 05/14/22 Catherine Cm MD [address] [place] [address] Cardiovascular Disease 07/21/22 Valery Veronica, PA-C 909 [place], [place] 8[address] Physician Rn Angiography Dermatology 07/21/22 Brea Quinn APRN INDUSTRIAL EDITOR 500 [place], [place] 9[address] Nurse Practitioner Dermatology 09/21/22 Brea Quinn, RETAIL PLANNER INDUSTRIAL EDITOR 6401 [facility] [place] [address] Assigned Surgical Provider 10/09/22 05/01/24 [place] [address] [place] [facility] 300 [place] [address] Assigned Musculoskeletal Provider 10/09/22 05/01/24 Sydnie Martinez RN Personal Advocate & Liaison (PAL) Family Medicine 03/28/23 07/31/23 Alfonso Renteria MD 5775 [facility] 200 [place], [place] 9[address]106 Assigned Neuroscience Provider 04/02/23 09/29/24 Cheng Todd PA-C [address] [place] [address] [id number] Assigned PCP 04/30/23 07/15/23 Radha Lomeli APRN INDUSTRIAL EDITOR 6405 [facility] [address] [place] [address] Assigned Heart and Vascular Provider 05/28/23 11/29/24 Jelena David OD [address] [place] [address] Ophthalmology 06/15/23 Pao Joseph, VJ Personal Advocate & Liaison (PAL) Nurse 08/01/23 11/07/23 Esha Grimm PA-C [address] [place] [phone] Assigned PCP 07/16/23 Valery Veronica PA-C 9 [place], [place] 916815 Physician Rn Angiography Dermatology 09/19/23 Rey Tay MD [address] [place] [address] 913505 MD Gastroenterology 09/20/23 Rocky Zepeda DO [address] [place] [address] 0735[address] Physician Gastroenterology 09/20/23 Philip Dumont MD [address] [place] [address] 964515 Physician Ophthalmology 09/22/23 Meredith Carrera PA-C [address] [place] [address] 254495 Assigned Gastroenterology Provider 11/01/23 Neil Kent MD [address] [phone] Dermatology 11/02/23 [place] [address] [place] [facility] [place] [address] Neurological Surgery 12/26/23 Audrey Waite PA-C [address] [place] [address] Physician Rn Angiography Dermatology 02/28/24 Valery Veronica PA-C 066064 [address] [place] [address] Physician Rn Angiography Dermatology 04/10/24 Herminia Hatch MD [facility] [place] [address] Assigned Rheumatology Provider 07/02/24 Jelena David OD [address] [place] [address] [place] [address] Ophthalmology 08/30/24 [place] [address] [place] [address] Assigned Neuroscience Provider 09/30/24 Maru Man PA-C [address] [place] [address] Physician Rn Angiography Dermatology 10/03/24 Maru Man PA-C [address] [place] [address] Physician Rn Angiography Dermatology 10/22/24 Jelena David OD [address] [place] [address] [place] [address] Assigned Surgical Provider 10/31/24 Fabiano Correa NP [address] [place] 527565 Assigned Heart and Vascular Provider 11/30/24 Walter Nowak MD [address] [place] 620525 Physician Clinical Cardiac Electrophysiology 03/01/25 Liset Márquez MD [address] [place] [address] hoop bender tank 03/13/25 Lauren Coronado [facility] [address] [place] [address] Pharmacist Pharmacist 04/15/25 documented as of this encounter
--- OUTSIDE RECORDS SUMMARY | 2025-04-27 00:09 | XMS_ITS | Encounter Summary ---
Author Organization [facility] Address [address] [place] [address] Care Team Providers Care Correspondence Section Supervisor Name Role Phone Diana Desir [facility] Unavailable Rain GalavizC Unavailable Tavia Wyatt MD Unavailable [phone] Erica Farrell APRN SHOT CORE DRILL OPERATOR HELPER Unavailable Rich Barrett MD Unavailable [phone] Neil Kent MD Unavailable ThangKednrickDiana Stanislav [facility] Unavailable Livan Sharif MD Unavailable Catherine Cm MD Unavailable + Valery Veronica-C Unavailable [phone] Brea Quinn APRN SHOT CORE DRILL OPERATOR HELPER Unavailable Esha Grimm PA-C Primary Care Provider [phone] Jelena David OD Unavailable Esha Grimm PA-C Unavailable [phone] Valery Veronica PA-C Unavailable [phone] Rey Tay MD Unavailable Rocky Zepeda DO Unavailable Philip Dumont MD Unavailable [phone] Meredith Carrera PA-C Unavailable [phone] Neil Kent MD Unavailable Juan Pablo Emmanuel MD Unavailable [phone] Audrey Waite PA-C Unavailable Valery Veronica PA-C Unavailable Herminia Hatch MD Unavailable Jelena David OD Unavailable [phone] Juan Pablo Emmanuel MD Unavailable Maru Man PA-C Unavailable [phone] Maru Man PA-C Unavailable Jelena David OD Unavailable Fabiano Correa NP Unavailable [phone] Walter Nowak MD Unavailable Liset Márquez MD Unavailable Lauren Coronado [facility] Unavailable [phone] Encounter Details Date Type Department Care Team (Late st Contact Info) Description 03/12/2025 [facility] Medical Advice [facility] [address] [place] [address] Luz Marina Michele Social History Tobacco Use Types Packs/Day Years [...] Date Recorded PHQ-2 Score 1 10/24/2024 [facility] - [...] exercise at this level? 20 min 05/07/2024 [place] Depression Scale Answer Date Recorded [place] Depression Score 5 01/14/2021 Last EPDS Self [...] PM CDT Legal Sex Female 4:13 AM [employer] INTERNS[employer]IP Gender Identity Female 03/02/2021 5:45 PM CDT Sexual Orientation Straight 02/28/2020 12 :51 AM CDT documented as of this encounter Plan of Treatment Upcoming Encounters Date Type Department Care Team (Late st Contact Info) Description 04/30/2025 10:30 AM CDT Office Visit [facility] [address], [address] [place] [phone] Liset Márquez MD [address] [place] [address] 05/30/2025 2:45 PM CHEMIST INTERNSHIP Office Visit [facility] [address] [facility] [address] [place] [phone] Fabiano Correa NP [address] [place] [place] [address] Walter Nowak MD [address] [place], [place] [address] 08/07/2025 8:15 AM CHEMIST INTERNSHIP Office Visit [facility] [address] [facility] [address] [place] [phone] Lucien Grimes MD [address] 589[address] 08/21/2025 9:00 AM CHEMIST INTERNSHIP Office Visit [facility] [address] [phone] Neil Kent MD [address] [place] [address] 10/09/2025 10:45 AM CDT Virtual Visit [facility] Gastroenterology [address] 4th [place] [phone] Meredith Carrera PA-C [address] [place] [address]225 documented as of this encounter Visit Diagnoses Not on filedocumented in this encounter Additional Health Concerns Assessment Noted Time PHQ-9 Depression Total Score: 5 10/25/19 25 10:38 AM CDT documented as of this encounter Care Teams Correspondence Section Supervisor Relationship Specialty Start Date End Date Esha Grimm PA-C [address] [place] [phone] PCP - General Family Medicine 05/04/23 Diana Desir, [facility] [address] [place] [address] Pharmacist Pharmacist 04/17/21 Rain Galaviz PA-C [address] [place] [address] [address] [place] [address] Physician Advisor Consultant Dermatology 04/28/21 Tavia Wyatt MD [address] [place] [address] [facility] [place] [address] Dermatology 07/14/21 Erica Farrell APRN SHOT CORE DRILL OPERATOR HELPER [address] [place] [address] Nurse Practitioner Cardiovascular Disease 09/09/21 Rich Barrett MD [address] [place] [address] Physician Ophthalmology 01/21/22 Neil Kent MD 500 [place] [address] Dermatology 02/24/22 Diana Desir, [facility] [address] [place] [address] Assigned MTM Pharmacist 04/07/22 Livan Sharif MD [address] [facility] [address] [place] [address] Cardiovascular Disease 05/14/22 Catherine Cm MD [address] [address] Cardiovascular Disease 07/21/22 Valery Veronica, PA-C [address] [place] [address] 421215 Physician Advisor Consultant Dermatology 07/21/22 Brea Quinn APRN SHOT CORE DRILL OPERATOR HELPER [address] [place] [address] Nurse Practitioner Dermatology 09/21/22 Jelena David OD [address] [place] [address] [place] [phone] MD Ophthalmology 06/15/23 Esha Grimm PA-C [address] [place] [phone] Assigned PCP 07/16/23 Valery Veronica, PA-C [address] [place] [address] 271575 Physician Advisor Consultant Dermatology 09/19/23 Rey Tay MD [address] [place] [place] [address] 307805 Gastroenterology 09/20/23 Rocky Zepeda DO [address] [place] [place] [address] 253235 Physician Gastroenterology 09/20/23 Philip Dumont MD [address] [place] [address] Physician Ophthalmology 09/22/23 Meredith Carrera PA-C [address] [place] [address] Assigned Gastroenterology Provider 11/01/23 Neil Kent MD [address] [address] Dermatology 11/02/23 [place] [address] [place], [place] 455867 Neurological Surgery 12/26/23 Audrey Waite PA-C [address] [place] [address] Physician Advisor Consultant Dermatology 02/28/24 Valery Veronica PA-C [address] [place] [address] Physician Advisor Consultant Dermatology 04/10/24 Herminia Hatch MD [address] [place] [address] [phone] Assigned Rheumatology Provider 07/02/24 [place] [address] [place] [address] [place] [address] Ophthalmology 08/30/24 [place] [address] [place] [address] Assigned Neuroscience Provider 09/30/24 Maru Man PA-C [address] [place] [address] Physician Advisor Consultant Dermatology 10/03/24 Maru Man PA-C [address] [place] [address] Physician Advisor Consultant Dermatology 10/22/24 Jelena David OD [address] [facility] [place] [address] Assigned Surgical Provider 10/31/24 Fabiano Correa NP [address] [place] 8[address]205 Assigned Heart and Vascular Provider 11/30/24 Walter Nowak MD [address] [place] [address] Physician Clinical Cardiac Electrophysiology 03/01/25 Liset Márquez MD [address] [facility] 300 [place], [place] [address] airport operations coordinator 03/13/25 Lauren Coronado, [facility] 909 [place], [place] 020875 Pharmacist Pharmacist 04/15/25 documented as of this encounter
--- OUTSIDE RECORDS SUMMARY | 2025-04-27 00:09 | XMS_ITS | Encounter Summary ---
Author Organization [facility] Address [address] [place] [address] Care Team Providers Care Customer Account Administrator Name Role Phone Diana Desir [facility] Unavailable [phone] Rain GalavizC Unavailable Tavia Wyatt MD Unavailable [phone] Erica Farrell APRN DESKTOP SUPPORT TECHNICIAN Unavailable Rich Barrett MD Unavailable [phone] Neil Kent MD Unavailable ThangKendrickDiana Stanislav [facility] Unavailable Livan Sharif MD Unavailable Catherine Cm MD Unavailable + Valery Veronica-C Unavailable Brea Quinn APRN DESKTOP SUPPORT TECHNICIAN Unavailable Esha Grimm PA-C Primary Care Provider Jelena David OD Unavailable Esha Grimm PA-C Unavailable [phone] Valery Veroncia PA-C Unavailable [phone] Rey Tay MD Unavailable [facility] Unavailable Philip Dumont MD Unavailable Meredith Carrera PA-C Unavailable Neil Kent MD Unavailable Juan Pablo Emmanuel MD Unavailable Audrey Waite PA-C Unavailable Valery Veronica PA-C Unavailable Herminia Hatch MD Unavailable Jelena David OD Unavailable [phone] Juan Pablo Emmanuel MD Unavailable Maru Man-C Unavailable Maru Man-C Unavailable Jelena David OD Unavailable [phone] Fabiano Correa NP Unavailable Walter Nowak MD Unavailable Liset Márquez MD Unavailable Encounter Details Date Type Department Care Team (Late st Contact Info) Description 02/10/2025 Results Follow-Up [facility] [address] [place] [address] Esha Grimm PA-C [address] [place] [address] Dx: Candidiasis of vagina (Primary Dx) Social History Tobacco Use [...] Answer Date Recorded PHQ-2 Score 1 04/11/2025 [facility] [...] exercise at this level? 20 min 05/07/2024 [place] Depression Scale Answer Date Recorded [place] Depression Score 5 01/14/2021 Last EPDS Self [...] PM CDT Legal Sex Female 4:13 AM COMPENSATION ADVISOR Gender Identity Female 03/02/2021 5:45 PM CDT Sexual Orientation Straight 02/28/2020 12 :51 AM CDT documented as of this encounter Plan of Treatment Upcoming Encounters Date Type Department Care Team (Late st Contact Info) Description 04/30/2025 10:30 AM CDT Office Visit [facility] [address], [address] [place] [address] Liset Márquez MD [address] [facility] [address] [place] [address] 05/30/2025 2:45 PM COMPENSATION ADVISOR Office Visit [facility] [address] [place] [phone] [place] [phone] Fabiano Correa NP [address] [facility] [place] 46[address]05 Walter Nowak MD 6404 [place], [place] [address]135 08/07/2025 8:15 AM COMPENSATION ADVISOR Office Visit [facility] [address] [facility] [address] [place] [phone] Lucien Grimes MD [address] [address] 08/21/2025 9:00 AM COMPENSATION ADVISOR Office Visit [facility] [address] [address] Neil Kent MD [address] [place] [address] 735325 10/09/2025 10:45 AM CDT Virtual Visit [facility] G[facility]ology Clinic [address] 4th [place] [phone] Meredith Carrera PA-C [address] [place] [address] documented as of this encounter Visit Diagnoses Diagnosis Candidiasis of vagina- Primary Candidiasis of vulva and vagina documented in this encounter Additional Health Concerns Assessment Noted Time PHQ-9 Depression Total Score: 5 10/25/19 25 10:38 AM CDT documented as of this encounter Care Teams Customer Account Administrator Relationship Specialty Start Date End Date Esha Grimm PA-C [address] [place] [phone] PCP - General Family Medicine 05/04/23 Diana Desir, [facility] [address] [place] [address] Pharmacist Pharmacist 04/17/21 Rain Galaviz PA-C [address] [place] [address] [address] [place] [address] Physician Cylinder Machine Operator Pulp Drier Dermatology 04/28/21 Tavia Wytat MD [address] [place] [address] [address] [facility] [place] [address] Dermatology 07/14/21 Erica Farrell APRN DESKTOP SUPPORT TECHNICIAN [address] [place] [address] Nurse Practitioner Cardiovascular Disease 09/09/21 Rich Barrett MD [address] [place] [address] Physician Ophthalmology 01/21/22 Neil Kent MD 500 [place], [place] [address] Dermatology 02/24/22 Diana Desir, [facility] [address] [place] [address] Assigned MTM Pharmacist 04/07/22 Livan Sharif MD [address] [facility] [address] [place] [address] Cardiovascular Disease 05/14/22 Catherine Cm MD [address] [place] [address] Cardiovascular Disease 07/21/22 Valery Veronica, PA-C [address] [place] [address] 113825 Physician Cylinder Machine Operator Pulp Drier Dermatology 07/21/22 Brae Quinn APRN DESKTOP SUPPORT TECHNICIAN [address] [place] [address] 699015 Nurse Practitioner Dermatology 09/21/22 Jelena David OD [address] [place] [address] [place] [address] Ophthalmology 06/15/23 Esha Grimm PA-C [address] [place] [address]23[address] Assigned PCP 07/16/23 Valery Veronica PA-C [address] [place] [address] 936975 Physician Cylinder Machine Operator Pulp Drier Dermatology 09/19/23 Rey Tay MD [address] [place] [address] 912465 Gastroenterology 09/20/23 Rocky Zepeda DO [address] [place] [address] 920255 Physician Gastroenterology 09/20/23 Philip Dumont MD 516 [place] [address] Physician Ophthalmology 09/22/23 Meredith Carrera PA-C [address] [place] [address] 149565 Assigned Gastroenterology Provider 11/01/23 Neil Kent MD [address] 056[address] MD Dermatology 11/02/23 [place] [address] [place], [place] 9[address] Neurological Surgery 12/26/23 Audrey Waite PA-C [address] [place] [address] 303755 Physician Cylinder Machine Operator Pulp Drier Dermatology 02/28/24 Valery Veronica PA-C [address] [place] [address] Physician Cylinder Machine Operator Pulp Drier Dermatology 04/10/24 Herminia Hatch MD [address] [place], [place] [phone] Assigned Rheumatology Provider 07/02/24 Jelena David OD [address] [facility] [place] [address] Ophthalmology 08/30/24 [place] [address] [place] [address] Assigned Neuroscience Provider 09/30/24 Maru Man PA-C [address] [place] [address] Physician Cylinder Machine Operator Pulp Drier Dermatology 10/03/24 Maru Man PA-C [address] [address] Physician Cylinder Machine Operator Pulp Drier Dermatology 10/22/24 Jelena David OD [address] [facility] [place] [address] Assigned Surgical Provider 10/31/24 Fabiano Correa, BRYCE [address] [place] [address] Assigned Heart and Vascular Provider 11/30/24 Walter Nowak MD [address] [place] [address] Physician Clinical Cardiac Electrophysiology 03/01/25 Liset Márquez MD [address] [place] [address] pullman car repairer 03/13/25 documented as of this encounter
--- OUTSIDE RECORDS SUMMARY | 2025-04-27 00:09 | XMS_ITS | Encounter Summary ---
Author Organization [place] Address [address] [place] [address] Care Team Providers Care Disposal Operator Name Role Phone Diana Desir [facility] Unavailable Rain GalavizC Unavailable Tavia Wyatt MD Unavailable [phone] Erica Farrell APRN ORE FIELDER Unavailable Rich Barrett MD Unavailable [phone] Neil Kent MD Unavailable ThangKendrickDiana Stanislav [facility] Unavailable Livan Sharif MD Unavailable Catherine Cm MD Unavailable + Valery Veronica-C Unavailable Brea Quinn APRN ORE FIELDER Unavailable Esha Grimm PA-C Primary Care Provider [phone] Jelena David OD Unavailable Esha Grimm PA-C Unavailable Valery Veronica PA-C Unavailable Rey Tay MD Unavailable DuaneRocky Unavailable Philip Dumont MD Unavailable Meredith Carrera PA-C Unavailable [phone] Neil Kent MD Unavailable Juan Pablo Emmanuel MD Unavailable Audrey Waite PA-C Unavailable Valery Veronica PA-C Unavailable [phone] Herminia Hatch MD Unavailable Jelena David OD Unavailable [phone] Juan Pablo Emmanuel MD Unavailable [phone] Maru Man PA-C Unavailable Maru Man PA-C Unavailable Jelena David OD Unavailable [phone] Fabiano Correa NP Unavailable Walter Nowak MD Unavailable Liset Márquez MD Unavailable Lauren Coronado [facility] Unavailable Reason for Visit * Reason Onset Date Comments Pt. Information/instruction 02/22/2025 EGD Encounter Details Date Type Department Care Team (Late st Contact Info) Description 02/22/2025 Telephone [facility] [address] [place] [address] Rain Patel, RN Pt. Information/instruction (EGD ) Social History Tobacco [...] Answer Date Recorded PHQ-2 Score 1 10/24/2024 [facility] Occupational Stress Questionnaire [...] exercise at this level? 20 min 05/07/2024 [place] Depression Scale Answer Date Recorded [place] [...] CDT Legal Sex Female 4:13 AM PRODUCTION LINE TECHNICIAN Gender Identity Female 03/02/2021 5:45 PM CDT Sexual Orientation Straight 02/28/2020 12 :51 AM CDT documented as of this encounter Miscellaneous Notes * Telephone Encounter - Annabelle Wetzel RN - 03/04/2025 8:15 AM CDT Second call attempt to complete pre assessment. Patient answered, but currently working. 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 Advised to return call to [phone] #3 by next business day prior to 4PM. Callback communication sent via [employer]. Annabelle Wetzel RN Endoscopy Procedure Pre Assessment * Telephone Encounter - Rain Patel RN - 02/28/2025 8:29 AM CDT Response received from [facility] anesthesia Dr. Ginny mckeon to proceed ------- Attempted to contact patient in order to complete pre assessment questions. No answer. Left message to return call to [phone] option 3. Callback communication sent via [employer]. Rain Patel RN * Telephone Encounter - Rain Patel RN - 02/25/2025 8:06 AM CDT Response received from cardiology provider Fabiano Correa NP Aside from a single brief episode of Wenckebach during sleep on her most recent monitor (which is likely a benign finding) she has had an extensive cardiac workup that has been negative with no recurrent episodes of SVT documented. I think she is stable to go ahead with the EGD without further cardiac testing and should not need to see EP before the EGD. Will be helpful to see if some of her symptoms could be from a GI issue. ------- Staff message sent to [facility] anesthesia for review with cardiology response to see if ok to proceed asscheduled at [facility] with MAC. ADDENDUM 02/27/25 9:15 AM BY Rain Patel RN CRNA out of office. Will email to Dr. Gross to review and advise. Rian Patel RN Endoscopy Procedure Pre Assessment [phone] option 3 * Telephone Encounter - Rain Patel RN - 02/22/2025 2:08 PM CDT Staff message sent to cardiology and ordering provider for cardiac review and clearance. Upon review patient has been completing cardiac testing and event monitoring for SVT. It was noted they are to do a 30 day event monitoring which may have started 02/01/25 which then patient would be finished by 03/04/25. It was noted in [employer] communications with cardiology 02/04/25 that an order has also been placed for patient to follow up with a rhythm specialist ([employer]) to address their recent symptoms and monitor results further. Seeking review and clarify if this procedure should be delayed for cardiac follow up clearance. If no delay is warranted, nursing will need to send to [facility] anesthesia for review. ------- Pre visit planning completed. Procedure details: Patient scheduled for Upper endoscopy (EGD) on 03/13/25. Arrival time: 744. Procedure time 08 [facility]; [address] [place] [address] [place] [address]. Check in location: 5th Floor. Sedation type: MAC Pre op exam needed? No. Indication for procedure: EOE Chart review: Electronic implanted devices? No Recent diagnosis of diverticulitis within the last 6 weeks? No Medication review: Diabetic? No Anticoagulants? No Weight loss medication/injectable? No GLP-1 medication per patient's medication list. Nursing to verify with pre-assessment call. Other medication HOLDING recommendations: N/A Prep for procedure: Bowel prep recommendation: N/A Due to: EGD Procedure information and instructions sent via [employer] Rain Patel bank note designer Procedure Pre Assessment [phone] option 3 documented in this encounter Plan of Treatment Upcoming Encounters Date Type Department Care Team (Late st Contact Info) Description 04/30/2025 10:30 AM CDT Office Visit [facility] [address], [address], [address] [employer] [place] [phone] Liset Márquez MD [address] [address] 05/30/2025 2:45 PM PRODUCTION LINE TECHNICIAN Office Visit [address] [phone] Fabiano Correa NP [address]407 [place], [place] 756555 Walter Nowak MD [address] [place], [place] 5235[address] 08/07/2025 8:15 AM PRODUCTION LINE TECHNICIAN Office Visit [facility] [address] [phone] Lucien Grimes MD [address] 818[address] 08/21/2025 9:00 AM PRODUCTION LINE TECHNICIAN Office Visit [address] [phone] Neil Kent MD [address] [place] [address] 10/09/2025 10:45 AM CDT Virtual Visit [facility] [place] [address] [place] [address] 4th [place] [phone] Meredith Carrera PA-C [address] [place] [address] documented as of this encounter Visit Diagnoses Not on filedocumented in this encounter Additional Health Concerns Assessment Noted Time PHQ-9 Depression Total Score: 5 10/25/19 25 10:38 AM CDT documented as of this encounter Care Teams Disposal Operator Relationship Specialty Start Date End Date Esha Grimm PA-C [address] [place] [phone] PCP - General Family Medicine 05/04/23 Diana Desir, [facility] [address] [place], [place] [address] Pharmacist Pharmacist 04/17/21 Rain Galavzi PA-C [address] [place] [address] [address] [place] [address] Physician Sap Specialist Dermatology 04/28/21 Tavia Wyatt MD [address] [place] [address] ENMA KNUTSON [phone] Dermatology 07/14/21 Erica Farrell APRN ORE FIELDER [address] [facility] [address] [place] [phone] Nurse Practitioner Cardiovascular Disease 09/09/21 Rich Barrett MD [address] [place], [place] [address] Physician Ophthalmology 01/21/22 Neil Kent MD [address] [place], [place] 351575 Dermatology 02/24/22 Diana Desir, [facility] [address] [place], [place] 723966 Assigned [facility] Pharmacist 04/07/22 Livan Sharif MD [address] [place], [place] 36[address] Cardiovascular Disease 05/14/22 Catherine Cm MD [address] [place], [place] 685065 Cardiovascular Disease 07/21/22 Valery Veronica, PA-C [address] [place], [place] 230915 Physician Sap Specialist Dermatology 07/21/22 Brea Quinn APRN ORE FIELDER 500 [place], [place] 206975 Nurse Practitioner Dermatology 09/21/22 Jelena David OD [address] [facility] [place] [place] [address] Ophthalmology 06/15/23 Esha Grimm PA-C [address] [place] [address] Assigned PCP 07/16/23 Valery Veronica PA-C [address] [place] [address] 421775 Physician Sap Specialist Dermatology 09/19/23 Rey Tay MD [address] [place] [address] 867505 MD Gastroenterology 09/20/23 Rocky Zepeda DO [address] [place] [address] 799825 Physician Gastroenterology 09/20/23 Philip Dumont MD [address] [place] [address] 525085 Physician Ophthalmology 09/22/23 Meredith Carrera PA-C [address] [place] [address] Assigned Gastroenterology Provider 11/01/23 Neil Kent MD [address] [address] Dermatology 11/02/23 [place] [address] [place] [address] Neurological Surgery 12/26/23 Audrey Waite PA-C [address] [place] [address] Physician Sap Specialist Dermatology 02/28/24 Valery Veronica PA-C [address] [place] [address] Physician Sap Specialist Dermatology 04/10/24 Herminia Hatch MD [address] [place] [address] [id number] Assigned Rheumatology Provider 07/02/24 Jelena David OD [address] [place] [address] [place] [address] Ophthalmology 08/30/24 [place] [address] [place] [address] Assigned Neuroscience Provider 09/30/24 Maru Man PA-C [address] [place] [address] Physician Sap Specialist Dermatology 10/03/24 Maru Man PA-C [address] [place] [address] Physician Sap Specialist Dermatology 10/22/24 Jelena David, SONJA [address] [place] [address] [place] [address] Assigned Surgical Provider 10/31/24 Fabiano Correa NP [address] [place] [address] Assigned Heart and Vascular Provider 11/30/24 Walter Nowak MD 6405 [place] [address] Physician Clinical Cardiac Electrophysiology 03/01/25 Liset Márquez MD [address] [facility] [address] [place], [place] 886084 wood stock blank handler 03/13/25 Lauren Coronado, [facility] 909 [place] [address] Pharmacist Pharmacist 04/15/25 documented as of this encounter
--- OUTSIDE RECORDS SUMMARY | 2025-04-27 00:09 | XMS_ITS | Encounter Summary ---
Author Organization [facility] Address [address] [place] [address] Care Team Providers Care Dimension Mill Worker Name Role Phone Diana Desir [facility] Unavailable Rain GalavizC Unavailable [phone] Tavia Wyatt MD Unavailable [phone] Erica Farrell APRN FARM OPERATOR Unavailable Rich Barrett MD Unavailable [phone] Neil Kent MD Unavailable ThangKendrickDiana Stanislav [facility] Unavailable Livan Sharif MD Unavailable Catherine Cm MD Unavailable + Valery Veronica-C Unavailable Brea Quinn APRN FARM OPERATOR Unavailable Esha Grimm PA-C Primary Care Provider Jelena David OD Unavailable Esha Grimm PA-C Unavailable [phone] Valery Veronica PA-C Unavailable [phone] Rey Tay MD Unavailable Duane Rocky Unavailable Philip Dumont MD Unavailable [phone] Meredith Carrera PA-C Unavailable [phone] Neil Kent MD Unavailable Juan Pablo Emmanuel MD Unavailable Audrey Waite PA-C Unavailable Valery Veronica PA-C Unavailable Herminia Hatch MD Unavailable Jelena David OD Unavailable Juan Pablo Emmanuel MD Unavailable [phone] Maru Man PA-C Unavailable Maru Man PA-C Unavailable Jelena David OD Unavailable Fabiano Correa NP Unavailable [phone] Walter Nowak MD Unavailable Liset Márquez MD Unavailable aLuren Corondao [facility] Unavailable [phone] Encounter Details Date Type Department Care Team (Late st Contact Info) Description 02/28/2025 [facility] Medical Advice [facility] [address] [place] [address] Rain Patel, VJ Social History Tobacco Use Types Packs/Day [...] Answer Date Recorded PHQ-2 Score 1 10/24/2024 [facility] - [...] exercise at this level? 20 min 05/07/2024 [place] Depression Scale Answer Date Recorded [place] Depression Score 5 01/14/2021 Last EPDS Self [...] PM CDT Legal Sex Female 4:13 AM SMELLER Gender Identity Female 03/02/2021 5:45 PM CDT Sexual Orientation Straight 02/28/2020 12 :51 AM CDT documented as of this encounter Plan of Treatment Upcoming Encounters Date Type Department Care Team (Late st Contact Info) Description 04/30/2025 10:30 AM CDT Office Visit [facility] [address], [address] [place] [phone] Liset Márquez MD [address] [place] [address] 05/30/2025 2:45 PM SMELLER Office Visit [facility] Heart [facility] [address] [facility] [address] [place] [phone] Fabiano Correa NP [address] [facility] [place] [address] Walter Nowak MD [address] [place] [address] 08/07/2025 8:15 AM SMELLER Office Visit [facility] Heart [facility] [address] [facility] [address] [place] [phone] Lucien Grimes MD [address] [address] 08/21/2025 9:00 AM SMELLER Office Visit [facility] [address] [phone] Neil Kent MD [address] [place] [address] 10/09/2025 10:45 AM CDT Virtual Visit [facility] [address] 4th [place] [phone] Meredith Carrera PA-C [address] [place] [address] 328065 documented as of this encounter Visit Diagnoses Not on filedocumented in this encounter Additional Health Concerns Assessment Noted Time PHQ-9 Depression Total Score: 5 10/25/19 25 10:38 AM CDT documented as of this encounter Care Teams Dimension Mill Worker Relationship Specialty Start Date End Date Esha Grimm PA-C [address] [place] [phone] PCP - General Family Medicine 05/04/23 Diana Desir [facility] [address] [place] [address] Pharmacist Pharmacist 04/17/21 Rain Galaviz PA-C [address] [place] [address] [address] [facility] [place] [place] [address] Physician Skiver Machine Dermatology 04/28/21 Tavia Wyatt MD [address] [place] [address] DR [address] [facility] [place] [place] [address] Dermatology 07/14/21 Erica Farrell APRN FARM OPERATOR [address] [place] [address] Nurse Practitioner Cardiovascular Disease 09/09/21 Rich Barrett MD [address] [place] 9[address]95 Physician Ophthalmology 01/21/22 Neil Kent MD 500 [place] [address] Dermatology 02/24/22 Diana Desir [facility] [address] [place] [address] Assigned MTM Pharmacist 04/07/22 Livan Sharif MD [address] [facility] [address] [place] 6[address]15 Cardiovascular Disease 05/14/22 Catherine Cm MD [address] 509[address] Cardiovascular Disease 07/21/22 Valery Veronica, PA-C [address] [place] [address] 765395 Physician Skiver Machine Dermatology 07/21/22 Brea Quinn APRN FARM OPERATOR [address] [place] [address] 656175 Nurse Practitioner Dermatology 09/21/22 [place] [address] [place] [address] [place] [id number] MD Ophthalmology 06/15/23 Esha Grimm PA-C [address] [place] [phone] Assigned PCP 07/16/23 Valery Veronica, CARI-C [address] [place] [address] 960845 Physician Skiver Machine Dermatology 09/19/23 Rey Tay MD [address] [place] [address] 785245 Gastroenterology 09/20/23 Rocky Zepeda DO [address] [place] [address] Physician Gastroenterology 09/20/23 Philip Dumont MD [address] [place] [address] Physician Ophthalmology 09/22/23 Meredith Carrera PA-C [address] [place] [address] Assigned Gastroenterology Provider 11/01/23 Neil Kent MD [address] [address] Dermatology 11/02/23 [place] [address] [place], [place] 3535[address] Neurological Surgery 12/26/23 Audrey Waite PA-C [address] [place] [address] Physician Skiver Machine Dermatology 02/28/24 Valery Veronica PA-C 369185 [address] [place] [address] Physician Skiver Machine Dermatology 04/10/24 Herminia Hatch MD [address] [place] [address] [id number] Assigned Rheumatology Provider 07/02/24 [place] [address] [place] [address] [place] [address] Ophthalmology 08/30/24 [place] [address] [place] [address] Assigned Neuroscience Provider 09/30/24 Maru Man PA-C [address] [place] [address] Physician Skiver Machine Dermatology 10/03/24 Maru Man PA-C [address] [place] [address] Physician Skiver Machine Dermatology 10/22/24 Jelena David OD [address] [facility] [place] [place] [address] Assigned Surgical Provider 10/31/24 Fabiano Correa NP [address] [facility] [place] [address] Assigned Heart and Vascular Provider 11/30/24 Walter Nowak MD [address] [place] [address]995 Physician Clinical Cardiac Electrophysiology 03/01/25 Liset Márquez MD [address] [address] web site specialist 03/13/25 Lauren Coronado, [facility] 909 [place], [place] 847435 Pharmacist Pharmacist 04/15/25 documented as of this encounter
--- OUTSIDE RECORDS SUMMARY | 2025-04-27 00:09 | XMS_ITS | Encounter Summary ---
Author Organization [facility] Address [address] [place] [address] Care Team Providers Care Staff Appraiser Name Role Phone Diana Desir [facility] Unavailable Rain GalavizC Unavailable Tavia Wyatt MD Unavailable [phone] Erica Farrell APRN RISK CONTROL CONSULTANT Unavailable Rich Barrett MD Unavailable [phone] Neil Kent MD Unavailable ThangKendrickDiana Stanislav [facility] Unavailable [phone] Livan Sharif MD Unavailable Catherine Cm MD Unavailable + Valery Veronica-C Unavailable Brea Quinn APRN RISK CONTROL CONSULTANT Unavailable Esha Grimm PA-C Primary Care Provider Jelena David OD Unavailable Esha Grimm PA-C Unavailable [phone] Valery Veronica PA-C Unavailable Rey Tay MD Unavailable Duane Rocky Unavailable Philip Dumont MD Unavailable Meredith Carrera PA-C Unavailable [phone] Neil Kent MD Unavailable Juan Pablo Emmanuel MD Unavailable Audrey Waite PA-C Unavailable Valery Veronica PA-C Unavailable Herminia Hatch MD Unavailable Jelena David OD Unavailable Juan Pablo Emmanuel MD Unavailable Maru Man PA-C Unavailable Maru Man PA-C Unavailable Jelena David OD Unavailable [phone] Fabiano Correa NP Unavailable [phone] Walter Nowak MD Unavailable Liset Márquez MD Unavailable Lauren Coronado [facility] Unavailable [phone] Encounter Details Date Type Department Care Team (Late st Contact Info) Description 02/28/2025 [facility] Medical Advice [facility] [address] [place] [address] Rain Patel, VJ Social History [...] 1 10/24/2024 [facility] - Occupational [...] exercise at this level? 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 Gender Identity Female 03/02/2021 5:45 PM CDT Sexual Orientation Straight 02/28/2020 12 :51 AM CDT documented as of this encounter Plan of Treatment Upcoming Encounters Date Type Department Care Team (Late st Contact Info) Description 04/30/2025 10:30 AM CDT Office Visit [facility] [address], [address] [place] [phone] Liset Márquez MD [address] [place] [address] 05/30/2025 2:45 PM 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 Office Visit [facility] [address] [facility] [address] [place] [phone] Fabiano Correa NP [address] [facility] [place] [address] Walter Nowak MD [address] [place], [place] [address] 08/07/2025 8:15 AM 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 Office Visit [facility] [address] [facility] [address] [place] [phone] Lucien Grimes MD [address] [address] 08/21/2025 9:00 AM 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 Office Visit [facility] [address] [phone] Neil Kent MD [address] [place] [address] 10/09/2025 10:45 AM CDT Virtual Visit [facility] [address] [place] [phone] Meredith Carrera PA-C [address] [place] [phone] documented as of this encounter Visit Diagnoses Not on filedocumented in this encounter Additional Health Concerns Assessment Noted Time PHQ-9 Depression Total Score: 5 10/25/19 25 10:38 AM CDT documented as of this encounter Care Teams Staff Appraiser Relationship Specialty Start Date End Date Esha Grimm PA-C [address] [place] [phone] PCP - General Family Medicine 05/04/23 Diana Desir [facility] [address] [place] [address] Pharmacist Pharmacist 04/17/21 Rain Galaviz PA-C [address] [place] [address] [address] [facility]NOTE 2][place] [address] Physician Body Shop Estimator Dermatology 04/28/21 Tavia Wyatt MD [address] [place] [address] DR [address] [facility]NOTE 2[facility] [address] Dermatology 07/14/21 Erica Farrell APRN RISK CONTROL CONSULTANT [address] [place] [address] Nurse Practitioner Cardiovascular Disease 09/09/21 Rich Barrett MD [address] [place] [phone] Physician Ophthalmology 01/21/22 Neil Kent MD [address] [place] [address] Dermatology 02/24/22 Diana Desir [facility] [address] [place] [address] Assigned MTM Pharmacist 04/07/22 Livan Sharif MD [address] [facility] [address] [place] [address] Cardiovascular Disease 05/14/22 Catherine Cm MD [address] [phone] Cardiovascular Disease 07/21/22 Valery Veronica, PA-C [address] [place] [address] [phone] Physician Body Shop Estimator Dermatology 07/21/22 Brea Quinn APRN RISK CONTROL CONSULTANT [address] [place] [address] 350995 Nurse Practitioner Dermatology 09/21/22 [place] [address] [place] [address] [place] [phone] MD Ophthalmology 06/15/23 Esha Grimm PA-C [address] [place] [phone] Assigned PCP 07/16/23 Valery Veronica, CARI-C [address] [place] [address] [phone] Physician Body Shop Estimator Dermatology 09/19/23 Rey Tay MD [address] [place] [address] [phone] Gastroenterology 09/20/23 Rocky Zepeda DO [address] [place] [address] Physician Gastroenterology 09/20/23 Philip Dumont MD [address] [place] [address] Physician Ophthalmology 09/22/23 Meredith Carrera PA-C [address] [place] [address] Assigned Gastroenterology Provider 11/01/23 Neil Kent MD [address] [address] Dermatology 11/02/23 [place] [address] [place], [place] [address] Neurological Surgery 12/26/23 Audrey Waite PA-C [address] [place] [address] Physician Body Shop Estimator Dermatology 02/28/24 Valery Veronica PA-C [id number] [place] [address] Physician Body Shop Estimator Dermatology 04/10/24 Herminia Hatch MD [address] [place] [address] [phone] Assigned Rheumatology Provider 07/02/24 [place] [address] [place] [address] [place] [address] Ophthalmology 08/30/24 [place] [address] [place] [address] Assigned Neuroscience Provider 09/30/24 Maru Man PA-C [address] [place] [address] Physician Body Shop Estimator Dermatology 10/03/24 Maru Man PA-C [address] [place] [address] Physician Body Shop Estimator Dermatology 10/22/24 [place] [address] [place] [address] Assigned Surgical Provider 10/31/24 Fabiano Correa NP [address] [facility] [place] [address] Assigned Heart and Vascular Provider 11/30/24 Walter Nowak MD [address] [place] 6[address]25 Physician Clinical Cardiac Electrophysiology 03/01/25 Liset Márquez MD [address] [address] pmo manager 03/13/25 Lauren Coronado, [facility] [address] [place], [place] [phone] Pharmacist Pharmacist 04/15/25 documented as of this encounter
[2025-04-27 00:36] LABS: Appearance Urine Clear (Clear)
[2025-04-27 00:43] LABS: Hematocrit* 38.4 % (33.0-51.0); Hemoglobin* 12.2 gm/dL (12.0-16.0); Immature Granulocytes Abs Auto 0.01 K/uL (0.00-0.30); Immature Granulocytes Pct Auto 0.1 %; Lymphocytes Absolute Auto 2.34 K/uL (0.90-2.90); Mean Corpuscular HGB Conc 32 gm/dL (32-36); Mean Corpuscular Hemoglobin 26 pg (26-34); Mean Corpuscular Volume 80 fL (80-100); RDW Coefficient of Variation % 13.3 % (11.5-15.5); Red Blood Count* 4.78 m/uL (4.00-5.20); White Blood Count* 6.89 K/uL (4.50-11.00)
[2025-04-27 00:47] LABS: Slide Review Reflex No
[2025-04-27 00:57] LABS: Albumin* 4.6 g/dL (3.3-5.0); Chloride* 100 mmol/L (96-114); Potassium* 3.5 mmol/L (3.6-5.1); Sodium* 136 mmol/L (135-149)
[2025-04-27 00:58] LABS: HCG Qualitative Serum* Negative (Negative)
[2025-04-27 01:00] LABS: Alanine Aminotransferase* 18 U/L (4-35); Alkaline Phosphatase* 57 U/L (40-150); Anion Gap 10 mEq/L (7-15); Aspartate Amino Transferase* 22 U/L (12-35); Bilirubin Total* 0.2 mg/dL (0.1-1.5); Blood Urea Nitrogen* 14 mg/dL (5-24); Carbon Dioxide* 26 mmol/L (20-32); Creatinine* 0.7 mg/dL (0.5-1.5); Est. Creatinine Clearance* 115.01; Estimated Glomerular Filt Rate 123 ml/min; Total Protein* 7.6 g/dL (6.0-8.3)
[2025-04-27 01:01] LABS: Calcium* 9.5 mg/dL (8.4-10.6); Glucose* 92 mg/dL (60-115)
[2025-04-27 01:05] LABS: D Dimer Quantitative* 0.10 ug/ml (0.00-0.50)
[2025-04-27 01:28] VITALS: BP 104/71; PULSE 84; RESP 18
== END 2025-04-27 01:32 | disposition home or self-care (01) ==
PROVIDERS: Internal Medicine; Emergency Provider Student in an Organized Health Care Education/Training Program
DX: R07.89 Other chest pain (principal)
CPT/HCPCS: 36415; 71046; 80053; 81003; 84484; 84703; 85025; 85379; 99284